=== PATIENT | male | born 1940 | race Caucasian/White ===

== ENCOUNTER 2023-05-19 09:00 | Outpatient (OUT) | payer MEDICARE, SELFPAY ==
--- NOTE | 2023-05-19 09:00 | CA_ITS ---
Patient: NADIR HEREDIA Exam Date: 05/19/2023 : 1940 Gender:M Ordering : DR CLARIBEL PUGA M.D. Admission #: [id number] Family : Order #: [id number] CLICK HERE TO VIEW EXAM ECHOCARDIOGRAM REPORT PROCEDURE: CA ECHO DOPPLER COMPLETE INDICATIONS: AOV STENOSIS, PERICARDIAL EFFUSION COMPARISON: None. DESCRIPTION: COMPLETE ECHOCARDIOGRAM Real-time transthoracic echocardiography with 2D, M-mode, spectral and color flow Doppler performed. QUALITY: Technical quality was limited. LEFT VENTRICLE: Normal chamber size. Proximal septal hypertrophy (sigmoid septum). LV EF: Global left ventricular systolic function is normal; visually estimated ejection fraction is 55 to 60%. No obvious wall motion abnormalities. DIASTOLIC: Not adequately assessed due to heart rhythm. ATRIAL SEPTUM: Inadequately seen. LEFT ATRIUM: Severe dilatation. RIGHT ATRIUM: Severe dilatation. RIGHT VENTRICLE: Moderate dilatation. Normal right ventricular systolic function. TRICUSPID VALVE: Normal mobility and thickness. Moderate regurgitation. Severe pulmonary hypertension. RVSP 74 mmHg MITRAL VALVE: Normal mobility and thickness. No evidence of mitral valve stenosis. Moderate mitral annular calcification. Mild mitral regurgitation. AORTIC VALVE: Doppler velocity suggests moderate aortic valve stenosis. The aortic valve is heavily calcified with reduced mobility. DVI 0.32. Mild aortic regurgitation. AORTIC ROOT: Aorta is normal in size for BSA PULMONIC VALVE: Normal thickness and mobility. No stenosis. Mild regurgitation. PERICARDIUM: A small to moderate circumferential pericardial effusion is seen. No chamber compression noted. IVC: IVC is dilated without collapse CONCLUSION: 1. Global left ventricular systolic function is normal; visually estimated ejection fraction is 55 to 60% 2. The right ventricle is moderately dilated. Normal right ventricular systolic function. 3. Severe biatrial enlargement. 4. Moderate tricuspid regurgitation. 5. Severely elevated right ventricular systolic pressure; RVSP 74 mmHg. 6. Mild mitral regurgitation. 7. Moderate aortic valve stenosis 8. A small to moderate circumferential pericardial effusion is seen; no echocardiographic evidence of chamber compression Adult Echocardiography Procedure Report Left Ventricle LVEDD (3.7 - 5.6 cm): 4.52 cm LVIVS thickness (0.6 - 1.2 cm): 1.15 cm LVOT Max Gradient: 4.24 mm[Hg], 4.20 mm[Hg] Peak Velocity (LVOT): 1.03 m/s, 1.03 m/s LVOT Diameter 1.91 cm Left Atrium Mitral Valve Mitral Valve E-Wave Peak Velocity: 1.26 m/s Right Ventricle RV Internal Diastolic Dimension: 4.79 cm Aorta Ascending Ao Diam: 3.48 cm Aortic Valve AoV Area (Peak Kyle): 0.91 cm2, 0.91 cm2, 0.91 cm2, 0.91 cm2, 0.91 cm2, 0.91 cm2, 0.91 cm2, 0.91 cm2 AoV Area (VTI): 1.02 cm2, 1.06 cm2 Peak Velocity(Antegrade Flow): 3.24 m/s, 2.92 m/s, 3.24 m/s Peak Gradient(Antegrade Flow): 41.87 mm[Hg], 34.03 mm[Hg], 41.87 mm[Hg] Mean Velocity(Antegrade Flow): 2.27 m/s, 2.03 m/s Mean Gradient(Antegrade Flow): 23.77 mm[Hg], 19.49 mm[Hg] Velocity Time Integral: 79.43 cm, 82.45 cm Tricuspid Valve Peak Velocity (Regurgitant Flow): 3.83 m/s, 3.61 m/s, 4.04 m/s Pulmonic Valve Peak Gradient: 4.08 mm[Hg] Right Atrium Dictated by: Rohini Traylor M.D. on 05/20/2023 at 18:05 Approved by: Rohini Traylor M.D. on 05/20/2023 at 18:19
== END 2023-05-19 14:31 | disposition home or self-care (01) ==
LOC: CARD 08-12 14:31
PROVIDERS: PCP Family Medicine; Visit Provider Internal Medicine Interventional Cardiology
DX: I35.0 Nonrheumatic aortic (valve) stenosis (principal); I31.39 Other pericardial effusion (noninflammatory)
CPT/HCPCS: 93306

== ENCOUNTER 2023-05-31 07:40 | Inpatient (IN) | payer MEDICARE, SELFPAY ==
[2023-05-31] VITALS (24 sets, daily range): BP systolic 125–183; BP diastolic 72–95; PULSE 72–135; RESP 14–24; TEMP 36.1–36.7; O2SAT 88–98; BMI 28.4; BMI 29.2
--- NOTE | 2023-05-31 08:24 | ECG_ITS ---
The [facility] Test Date: 2023-05-31 Pat Name: NADIR HEREDIA Department: Room: - Gender: Male Cushion Stuffer: : 1940 Requested By: VAN YOUSSEF Order Number: [id number] Reading MD: VAN YOUSSEF Measurements Intervals [place] Rate: 92 P: -02720 GA: -46044 QRS: 98 QRSD: 100 T: 28 QT: 364 QTc: 414 Interpretive Statements 1210 Atrial fibrillation 3333 Anterolateral myocardial infarction, probably old 9150 abnormal ECG No previous ECG available for comparison Electronically Signed On 06-02-2023 6:36:14 EDT by VAN YOUSSEF
[2023-05-31 08:34] LABS: Basophils Percent Auto 0.5 % (0.2-2.0); Eosinophils Absolute Auto 0.3 10^3/uL (0.0-0.7); Eosinophils Percent Auto 3.5 % (0.9-7.0); Hematocrit 41.6 % (42.0-54.0); Hemoglobin 13.9 g/dL (14.0-18.0); Immature Granulocytes Abs Auto 0.03 10^3/uL (0.00-0.03); Immature Granulocytes Pct Auto 0.4 % (0.0-0.5); Lymphocytes Absolute Auto 0.6 10^3/uL (1.2-3.8); Mean Corpuscular HGB Conc 33.4 g/dL (29.9-35.2); Mean Corpuscular Hemoglobin 33.5 pg (25.9-34.0); Mean Corpuscular Volume 100.2 fL (80.0-94.0); Mean Platelet Volume 11.5 fL (9.5-13.5); Monocytes Absolute Auto 0.8 10^3/uL (0.3-0.8); Monocytes Percent Auto 9.7 % (1.7-12.0); Neutrophils Absolute Auto 6.1 10^3/uL (1.4-6.5); Neutrophils Percent Auto 77.9 % (43.0-75.0); Platelet Count 171 10^3/uL (150-450); Red Blood Count 4.15 10^6/uL (4.70-6.10); Red Cell Distribution Width 15.9 % (11.0-15.0); White Blood Count 7.8 10^3/uL (4.0-11.0)
[2023-05-31] MEDS: METHYLPREDNISOLONE SOD SUCC PF 125 MG/2 ML VIAL IVP (08:35)
[2023-05-31] MEDS: IPRATROPIUM/ALBUTEROL SULFATE 3 ML AMPUL.NEB IH ×3 (08:40→22:16)
[2023-05-31 08:53] LABS: ABG PCO2 45.3 mmHg (35.0-45.0); Allen Test POSITIVE (POSITIVE); Base Excess ABG 4.5 mmol/L (-2.0-2.0); HCO3 ABG 29.1 mmol/L (22.0-26.0); Oxygen Saturation ABG 91.5 %; PO2 ABG 69.2 mmHg (80.0-100.0); pH ABG 7.415 (7.350-7.450)
[2023-05-31 08:54] LABS: Anion Gap 14.2; BUN Creatinine Ratio 17.3; Carbon Dioxide 27.2 mmol/L (21.0-32.0); Chloride 108 mmol/L (98-107); Estimated GFR (African America 54 (>=60); Estimated GFR (Non-African Ame 45 (>=60); Glucose 193 mg/dL (74-106); Potassium 4.4 mmol/L (3.5-5.1); Sodium 145 mmol/L (136-145); Troponin I High Sensitivity 12.6 pg/mL (4.0-76.1)
[2023-05-31 08:54] LABS: Liters per Minute 2; O2 Mode NASAL CANNULA; Puncture Site R. RADIAL
--- NOTE | 2023-05-31 09:00 | ED.SOB1 ---
HPI - SOB/Dyspnea General Chief Complaint: Shortness of Breath/Dyspnea Stated Complaint: SHORTNESS OF BREATH Time Seen by Provider: 05/31/23 07:53 Source: patient Source comment: patient Mode of arrival: Wheelchair Limitations: no limitations History of Present Illness HPI Narrative: Patient has been experiencing shortness of breath since last week. He saw Dr Sung in the office and was prescribed spironolactone over the weekend. He has been using his home inhalers without any improvement. He uses oxygen at 2LPM [place] at home. No improvement over the weekend and he felt worse shortness of breath this weekend. Never had chest pain, tightness or pressure. Minimal cough. No sore throat or nasal congestion. Related Data Allergies Allergy/AdvReac Type Severity Reaction Status Date / Time Iodinated Contrast Media Allergy Intermediate Verified 05/31/23 07:56 nitroglycerin Allergy Intermediate Verified 05/31/23 07:56 [facility] Social History Smoking status: Former smoker Exam Narrative Exam Narrative: Nurses notes and vital signs reviewed and patient is not hypoxic. afebrile General: Mildly tachypneic at rest but in no apparent distress. Skin: Warm, dry, no pallor noted. No rash. Head: Normocephalic, atraumatic. Neck: Supple, non-tender. Eye: Pupils are equal, round and EOMI. No scleral icterus. Ears, Nose, Mouth, and Throat: Oral mucosa is moist Cardiovascular: Regular Rate and Rhythm without murmur, gallop or rub. Respiratory: No accessory muscle use or respiratory distress. Lungs with bibasilar and central rales Chest Wall: no tenderness Musculoskeletal: normal ROM, no calf or popliteal tenderness. he wears compression stockings so no lower extremity edema/swelling was noted. GI: Abdomen is soft, non-distended. Normal bowel sounds. No tenderness to palpation. No rebound, guarding, or rigidity noted. Neurological: A&O x4. No cranial nerve dysfunction observed. No truncal ataxia. Moves all extremities. Sensation intact. Psychiatric: Cooperative and interactive. Normal mood and affect. Constitutional Vital Signs, click to edit/add: Last Vital Signs Temp 97.5 F L 05/31/23 07:50 Pulse 80 05/31/23 08:41 Resp 24 05/31/23 07:50 BP 142/80 H 05/31/23 07:50 Pulse Ox 92 L 05/31/23 08:41 O2 Del Method Nasal Cannula 05/31/23 08:41 O2 Flow Rate 2 05/31/23 08:41 Course Vital Signs Vital signs: Vital Signs Temperature 97.5 F L 05/31/23 07:50 Respiratory Rate 24 05/31/23 07:50 Blood Pressure 142/80 H 05/31/23 07:50 Pulse Oximetry 88 L 05/31/23 07:50 Oxygen Delivery Method Room Air 05/31/23 07:50 Oxygen Delivery Flow Rate 2 05/31/23 07:50 Temperature 97.5 F L 05/31/23 07:50 Pulse Rate 80 05/31/23 08:41 Respiratory Rate 24 05/31/23 07:50 Blood Pressure 142/80 H 05/31/23 07:50 Pulse Oximetry 92 L 05/31/23 08:41 Oxygen Delivery Method Nasal Cannula 05/31/23 08:41 Oxygen Delivery Flow Rate 2 05/31/23 08:41 MDM - SOB/Dyspnea MDM Narrative Medical decision making narrative: Patient was placed on phototypesetting equipment monitor and EKG obtained. Blood drawn and sent for evaluation. ABG obtained. CXR obtained. The patient received IV Solumedrol and Duoneb therapy. ABG revealed hypoxemia despite wearing 2LPM [place] oxygen. BNP elevated. Troponin normal. CBC unremarkable. BMP notable for elevated BUN & Cr @ 26, 1.5. Glucose elevated at 193. CXR reveals cephalization consistent with his clinical CHF picture including elevated BNP. He was diuresed with Lasix 40mg IVP in the ED. Case discussed with his PCP. Dr Sung agreed to admit the patient for further evaluation and treatment since he had already tried spironolactone as an out-patient without improvement. Lab Data Attestation: I reviewed the patient's lab results. Labs: Lab Results 05/31/23 05/31/23 Range/Units 08:09 08:43 WBC 7.8 (4.0-11.0) 10^3/uL RBC 4.15 L (4.70-6.10) 10^6/uL Hgb 13.9 L (14.0-18.0) g/dL Hct 41.6 L (42.0-54.0) % MCV 100.2 H (80.0-94.0) fL MCH 33.5 (25.9-34.0) pg MCHC 33.4 (29.9-35.2) g/dL RDW 15.9 H (11.0-15.0) % Plt Count 171 (150-450) 10^3/uL MPV 11.5 (9.5-13.5) fL Neut % (Auto) 77.9 H (43.0-75.0) % Lymph % (Auto) 8.0 L (20.5-60.0) % [place] % (Auto) 9.7 (1.7-12.0) % Eos % (Auto) 3.5 (0.9-7.0) % Baso % (Auto) 0.5 (0.2-2.0) % Neut # (Auto) 6.1 (1.4-6.5) 10^3/uL Lymph # (Auto) 0.6 L (1.2-3.8) 10^3/uL [place] # (Auto) 0.8 (0.3-0.8) 10^3/uL Eos # (Auto) 0.3 (0.0-0.7) 10^3/uL Baso # (Auto) 0.0 (0.0-0.1) 10^3/uL Abs Immat Gran (auto) 0.03 (0.00-0.03) 10^3/uL Imm/Tot Granulo (auto) 0.4 (0.0-0.5) % Puncture Site R. radial ABG pH 7.415 (7.350-7.450) ABG pCO2 45.3 H (35.0-45.0) mmHg ABG pO2 69.2 L (80.0-100.0) mmHg ABG HCO3 29.1 H (22.0-26.0) mmol/L ABG O2 Saturation 91.5 % ABG Base Excess 4.5 H (-2.0-2.0) mmol/L [place] Test Positive (POSITIVE) O2 Liters/Min 2 Sodium 145 (136-145) mmol/L Potassium 4.4 (3.5-5.1) mmol/L Chloride 108 H (98-107) mmol/L Carbon Dioxide 27.2 (21.0-32.0) mmol/L Anion Gap 14.2 BUN 26.0 H (7.0-18.0) mg/dL Creatinine 1.50 H (0.70-1.30) mg/dL Est GFR ( Amer) 54 L (>=60) Est GFR (Non-Af Amer) 45 L (>=60) BUN/Creatinine Ratio 17.3 Glucose 193 H (74-106) mg/dL Calcium 9.0 (8.5-10.1) mg/dL Troponin I High Sens 12.6 (4.0-76.1) pg/mL NT-Pro-B Natriuret Pep 3311.0 H* (<=1800.0) pg/mL ABG Data Attestation: I have reviewed the pertinent ABG results. Interpretation: Normal pH. pCO2 is slightly elevated. paO2 is low despite 2LPM NC. Imaging Data Chest x-ray: Radiologist's impression: Patient Name: NADIR HEREDIA MRN: [id number] date: 1940 Sex: M Assigned Patient Location: ER Current Patient Location: ER Accession/Order Number: [id number] Exam Date: 05/31/2023 09:00 Report Date: 05/31/2023 09:15 At the request of: KHLOE LEUNG Procedure: XR chest 1V EXAMINATION: XR chest 1V HISTORY: shortness of breath COMPARISON: 07/17/2022 TECHNIQUE: AP portable FINDINGS: LUNGS: Left basilar infiltrate partially obscuring the hemidiaphragm VASCULATURE: Moderately increased only vasculature PLEURA: No pneumothorax, effusion, or pleural thickening. CARDIAC: No cardiomegaly MEDIASTINUM: No visible mass or adenopathy. BONES: No fracture or visible bone lesion. OTHER: Negative. IMPRESSION: Pulmonary vascular congestion Mild left basilar infiltrate Electronically authenticated by: RAULITO CORBETT Date: 05/31/2023 09:15 ECG Data Attestation: ?I have reviewed the pertinent ECG results. Interpretation: EKG interpretation: Emergency Department physician interpretation. rate controlled atrial fibrillation at 92bpm. Normal axis, normal intervals and no ST segment elevation or depression. Discharge Plan Discharge Chief Complaint: Shortness of Breath/Dyspnea Clinical Impression: Congestive heart failure Patient Disposition: Admitted As Inpatient Time of Disposition Decision: 09:13 Additional Instructions: Dr Sung's service, med/surg with telemetry
--- NOTE | 2023-05-31 09:08 | XR_ITS ---
The [address] [address] Patient Name: NADIR HEREDIA MRN: [id number] date: 1940 Sex: M Assigned Patient Location: ER Current Patient Location: ER Accession/Order Number: [id number] Exam Date: 05/31/2023 09:00 Report Date: 05/31/2023 09:15 At the request of: KHLOE LUENG Procedure: XR chest 1V EXAMINATION: XR chest 1V HISTORY: shortness of breath COMPARISON: 07/17/2022 TECHNIQUE: AP portable FINDINGS: LUNGS: Left basilar infiltrate partially obscuring the hemidiaphragm VASCULATURE: Moderately increased only vasculature PLEURA: No pneumothorax, effusion, or pleural thickening. CARDIAC: No cardiomegaly MEDIASTINUM: No visible mass or adenopathy. BONES: No fracture or visible bone lesion. OTHER: Negative. XR/XR chest 1V IMPRESSION: Pulmonary vascular congestion Mild left basilar infiltrate Electronically authenticated by: RAULITO CORBETT Date: 05/31/2023 09:15
[2023-05-31] MEDS: FUROSEMIDE 40 MG/4 ML VIAL IVP (09:49)
[2023-05-31 10:48] LABS: SARS-CoV-2 Ag NEGATIVE (NEGATIVE)
[2023-05-31 14:14] LABS: Free T3 2.52 pg/mL (2.18-3.98); Magnesium 2.5 mg/dL (1.8-2.4); Thyroid Stimulating Hormone 0.898 uIU/mL (0.358-3.740)
[2023-05-31 14:15] LABS: Creatine Kinase 62 U/L (39-308); Creatine Kinase MB 1.38 ng/mL (<=3.60); Troponin I High Sensitivity 15.6 pg/mL (4.0-76.1)
--- NOTE | 2023-05-31 14:48 | SWNOTE1 ---
SW met with pt to discuss dc needs. Pt's in room as well. Pt lives at home with his . He is independent at home and does not wear home oxygen. Pt does not have any home health coming in. Pt and voiced they do not have any discharge concerns at this time. SW to follow as needed.
[2023-05-31] MEDS: BUMETANIDE 10 MG in 0.9 % SODIUM CHLORIDE 160 ML 20 MG IV (14:58)
[2023-05-31 16:04] LABS: Glucometer 226 mg/dL (74-106)
[2023-05-31] MEDS: METOCLOPRAMIDE HCL 10 MG TABLET 5 MG PO ×2 (17:56→21:13)
[2023-05-31] MEDS: TAMSULOSIN HCL 0.4 MG CAPSULE PO (17:57)
[2023-05-31] MEDS: PANTOPRAZOLE SODIUM 40 MG VIAL IV (17:57)
[2023-05-31] MEDS: APIXABAN 5 MG TABLET 2.5 MG PO (17:57)
[2023-05-31] MEDS: HYDRALAZINE HCL 50 MG TABLET 100 MG PO (20:08)
[2023-05-31] MEDS: MAGNESIUM OXIDE 400 MG TABLET 800 MG PO (20:08)
[2023-05-31] MEDS: GABAPENTIN 300 MG CAPSULE 1200 MG PO (20:09)
[2023-05-31] MEDS: POTASSIUM CHLORIDE 10 MEQ ER TABLET 20 MEQ PO (20:09)
[2023-05-31] MEDS: FERROUS SULFATE 325 MG TABLET PO (20:11)
[2023-05-31] MEDS: CLONIDINE HCL 0.1 MG TABLET PO (20:13)
[2023-05-31] MEDS: PRIMIDONE 50 MG TABLET PO (20:18)
[2023-05-31 20:36] LABS: Glucometer 404 mg/dL (74-106)
[2023-05-31] MEDS: INSULIN ASPART 300 UNIT/3 ML PEN SUBQ (21:13)
[2023-05-31] MEDS: ACYCLOVIR 200 MG CAPSULE 400 MG PO (21:13)
[2023-05-31 23:11] LABS: Bilirubin Urine NEGATIVE (NEGATIVE); Blood Urine NEGATIVE (NEGATIVE); Clarity Urine CLEAR (CLEAR); Color Urine LT. YELLOW (YELLOW); Glucose Urine UA >=1000 mg/dL (NEGATIVE); Ketones Urine NEGATIVE (NEGATIVE); Leukocyte Esterase Urine NEGATIVE (NEGATIVE); Nitrite Urine NEGATIVE (NEGATIVE); Protein Urine NEGATIVE (NEG/TRACE); Urobilinogen Urine 0.2 EU/dL (0.2-1.0); pH Urine 6.5 (5.0-9.0)
[2023-05-31 23:14] LABS: Urine Microscopic Indicated NO
[2023-06-01] VITALS (18 sets, daily range): BP systolic 81–169; BP diastolic 47–95; PULSE 77–138; RESP 16–18; TEMP 36.4–36.7; O2SAT 83–100; BMI 29.2
[2023-06-01] MEDS: METOPROLOL TARTRATE 5 MG/5 ML VIAL IVP (01:06)
[2023-06-01] MEDS: DEXTROSE 50 %-WATER 25 GM/50 ML SYRINGE IV (01:28)
[2023-06-01 01:31] LABS: Glucometer 48 mg/dL (74-106)
[2023-06-01 01:33] LABS: Glucometer 156 mg/dL (74-106)
[2023-06-01 05:07] LABS: Glucometer 208 mg/dL (74-106)
[2023-06-01] MEDS: IPRATROPIUM/ALBUTEROL SULFATE 3 ML AMPUL.NEB IH ×2 (05:11→11:35)
[2023-06-01 05:19] LABS: Basophils Percent Auto 0.2 % (0.2-2.0); Eosinophils Percent Auto 0.1 % (0.9-7.0); Hematocrit 48.7 % (42.0-54.0); Hemoglobin 15.6 g/dL (14.0-18.0); Immature Granulocytes Abs Auto 0.06 10^3/uL (0.00-0.03); Immature Granulocytes Pct Auto 0.4 % (0.0-0.5); Lymphocytes Absolute Auto 0.8 10^3/uL (1.2-3.8); Lymphocytes Percent Auto 5.3 % (20.5-60.0); Mean Corpuscular Hemoglobin 32.8 pg (25.9-34.0); Mean Corpuscular Volume 102.3 fL (80.0-94.0); Mean Platelet Volume 11.2 fL (9.5-13.5); Monocytes Absolute Auto 1.7 10^3/uL (0.3-0.8); Monocytes Percent Auto 11.3 % (1.7-12.0); Neutrophils Absolute Auto 12.1 10^3/uL (1.4-6.5); Neutrophils Percent Auto 82.7 % (43.0-75.0); Platelet Count 187 10^3/uL (150-450); Red Blood Count 4.76 10^6/uL (4.70-6.10); Red Cell Distribution Width 15.9 % (11.0-15.0); White Blood Count 14.6 10^3/uL (4.0-11.0)
[2023-06-01 05:42] LABS: Alanine Aminotransferase 22 U/L (16-63); Albumin Globulin Ratio 1.2; Alkaline Phosphatase 86 U/L (46-116); Anion Gap 15.5; Aspartate Amino Transferase 16 U/L (15-37); Bilirubin Total 0.9 mg/dL (0.2-1.0); Calcium 9.4 mg/dL (8.5-10.1); Carbon Dioxide 27.6 mmol/L (21.0-32.0); Chloride 105 mmol/L (98-107); Estimated GFR (African America 41 (>=60); Estimated GFR (Non-African Ame 34 (>=60); Globulin 3.4 g/dL; Glucose 185 mg/dL (74-106); Magnesium 2.5 mg/dL (1.8-2.4); Potassium 4.1 mmol/L (3.5-5.1); Sodium 144 mmol/L (136-145); Total Protein 7.4 g/dL (6.4-8.2); Troponin I High Sensitivity 22.6 pg/mL (4.0-76.1)
[2023-06-01 08:13] LABS: Glucometer 168 mg/dL (74-106)
--- NOTE | 2023-06-01 08:20 | PM.HP ---
H&P: HPI History of Present Illness Chief complaint: SHORTNESS OF BREATH Narrative: Patient was seen and evaluated in the office 2 days prior to admission. Diuretics were adjusted for acute combined congestive heart failure as an outpatient. Patient had increasing shortness of breath and presented to the emergency room. Found to have progression of his acute combined congestive heart failure. Elevated BNP and hypoxia. Patient will be admitted for work-up and treatment of same. Failed outpatient treatment Review of Systems ROS Status of ROS 10 or more systems reviewed and unremarkable except as noted in history and below PFSH PFSH Social History Smoking status: Former smoker Meds Home Medications and Allergies Home Medications Medication Instructions Recorded Confirmed Type ACETAMINOPHEN PM 1 tab PO BEDTIME 05/31/23 05/31/23 History Vitamin B-Complex 1 tab PO .NOON 05/31/23 05/31/23 History acyclovir 400 mg tablet 400 mg PO Q12H 05/31/23 05/31/23 History alogliptin 25 mg tablet 25 mg PO DAILY 05/31/23 05/31/23 History apixaban 2.5 mg tablet 2.5 mg PO BID 05/31/23 05/31/23 History aspirin 81 mg tablet,delayed 81 mg PO DAILY 05/31/23 05/31/23 History release (Adult Low Dose Aspirin) cholecalciferol (vitamin D3) 50 2,000 unit PO DAILY 05/31/23 05/31/23 History mcg (2,000 unit) tablet (Thera-D) clonidine HCl 0.1 mg tablet 0.1 mg PO Q12H 05/31/23 05/31/23 History dicyclomine 10 mg capsule 10 mg PO DAILY 05/31/23 05/31/23 History dulaglutide 0.75 mg/0.5 mL 0.75 mg subcut .weekly 05/31/23 05/31/23 History subcutaneous pen injector (Trulicity) empagliflozin 25 mg tablet 25 mg PO DAILY 05/31/23 05/31/23 History (Jardiance) ergocalciferol (vitamin D2) 1,250 50,000 unit PO .weekly 05/31/23 05/31/23 History mcg (50,000 unit) capsule ezetimibe 10 mg tablet 10 mg PO DAILY 05/31/23 05/31/23 History ferrous sulfate 325 mg (65 mg 325 mg PO BID 05/31/23 05/31/23 History iron) tablet furosemide 20 mg tablet 20 mg PO BID 05/31/23 05/31/23 History furosemide 40 mg tablet 40 mg PO Q12H 05/31/23 05/31/23 History gabapentin 600 mg PO .1 QAM AND 2 QPM 05/31/23 05/31/23 History glimepiride 4 mg tablet 8 mg PO DAILY 05/31/23 05/31/23 History hydralazine 100 mg tablet 100 mg PO Q12H 05/31/23 05/31/23 History hydrocortisone-pramoxine 2.5 %-1 % 1 applic topical TID 05/31/23 05/31/23 History rectal cream labetalol 300 mg tablet 300 mg PO DAILY 05/31/23 05/31/23 History magnesium See Rx Instructions PO BID 05/31/23 05/31/23 History metoclopramide HCl 5 mg tablet 5 mg PO Q6H 05/31/23 05/31/23 History omeprazole 20 mg capsule,delayed 20 mg PO BID 05/31/23 05/31/23 History release pioglitazone 45 mg tablet 45 mg PO DAILY 05/31/23 05/31/23 History primidone 50 mg tablet 50 mg PO Q12H 05/31/23 05/31/23 History spironolactone 50 mg tablet 50 mg PO .QD 05/31/23 05/31/23 History tamsulosin 0.4 mg capsule 0.4 mg PO Q24H 05/31/23 05/31/23 History Allergies Allergy/AdvReac Type Severity Reaction Status Date / Time Iodinated Contrast Media Allergy Intermediate Verified 05/31/23 07:56 nitroglycerin Allergy Intermediate Verified 05/31/23 07:56 Exam Constitutional Vital Signs, click to edit/add: Last Vital Signs Temp 97.6 F 06/01/23 05:37 Pulse 109 H 06/01/23 07:47 Resp 18 06/01/23 05:37 BP 130/90 H 06/01/23 05:37 Pulse Ox 96 06/01/23 05:37 O2 Del Method Nasal Cannula 06/01/23 05:37 O2 Flow Rate 2 06/01/23 05:37 Documenting provider has reviewed patient's vital signs: yes Common normals: no apparent distress Other: Some confusion overnight. This is likely related to sundowning. He did have a fall but did not have any head injury. Respiratory Common normals: normal respiratory effort, no retractions and clear to auscultation bilaterally Cardio Common normals: no murmurs Rate: regular rate Rhythm: abnormal rhythm Neuro Common normals: oriented x3 and CN's II-XII intact bilaterally Results Labs Labs: Short CBC 05/31/23 06/01/23 Range/Units 08:09 05:12 WBC 7.8 14.6 H (4.0-11.0) 10^3/uL Hgb 13.9 L 15.6 (14.0-18.0) g/dL Hct 41.6 L 48.7 (42.0-54.0) % Plt Count 171 187 (150-450) 10^3/uL BMP 05/31/23 06/01/23 08:09 05:12 Sodium 145 144 Potassium 4.4 4.1 Chloride 108 H 105 Carbon Dioxide 27.2 27.6 BUN 26.0 H 38.0 H Creatinine 1.50 H 1.90 H Glucose 193 H 185 H Calcium 9.0 9.4 Cardiac Enzymes 05/31/23 Range/Units 13:17 Total Creatine Kinase 62 (39-308) U/L CK-MB (CK-2) 1.38 (<=3.60) ng/mL Liver Function 06/01/23 Range/Units 05:12 Total Bilirubin 0.9 (0.2-1.0) mg/dL AST 16 (15-37) U/L ALT 22 (16-63) U/L Alkaline Phosphatase 86 (46-116) U/L Albumin 4.0 (3.4-5.0) g/dL Urine 05/31/23 Range/Units 22:50 Urine Color Lt. yellow (YELLOW) Urine Clarity Clear (CLEAR) Urine pH 6.5 (5.0-9.0) Ur Specific [place] 1.010 (1.005-1.025) Urine Protein Negative (NEG/TRACE) mg/dL Urine Glucose (UA) >=1000 A (NEGATIVE) mg/dL ABG ABG results: 05/31/23 08:43 ABG pH 7.415 ABG pCO2 45.3 H ABG pO2 69.2 L ABG HCO3 29.1 H ABG O2 Saturation 91.5 ABG Base Excess 4.5 H Assessment and Plan Assessment and Plan (1) Congestive heart failure: Plan Acute hypoxia, tachycardia, acute combined congestive heart failure-elevated BNP on admission, elevated more today. But he did have 6 L of diuresis. This is likely just a lag in change of the BNP as well as his increased BUN and creatinine resulting in elevated BNP. He overall feels much improved. Plan will be to try to wean him off of supplemental oxygen. He had a recent echocardiogram that was showed a good ejection fraction. Consultation to cardiology if here today. If ambulating well later today and no further work-up from cardiology and no need for supplemental oxygenation he can be discharged home in improving condition. Medications see list. Follow-up with me in the office either later this week or next
[2023-06-01] MEDS: HYDRALAZINE HCL 50 MG TABLET 100 MG PO (08:42)
[2023-06-01] MEDS: EZETIMIBE 10 MG TABLET PO (08:43)
[2023-06-01] MEDS: GABAPENTIN 300 MG CAPSULE 600 MG PO (08:43)
[2023-06-01] MEDS: SPIRONOLACTONE 25 MG TABLET 50 MG PO (08:44)
[2023-06-01] MEDS: GLIMEPIRIDE 2 MG TABLET 8 MG PO (08:45)
[2023-06-01] MEDS: MAGNESIUM OXIDE 400 MG TABLET 800 MG PO (08:45)
[2023-06-01] MEDS: CANAGLIFLOZIN 100 MG TABLET 300 MG PO (08:46)
[2023-06-01] MEDS: ASPIRIN 81 MG TABLET.DR PO (08:46)
[2023-06-01] MEDS: FERROUS SULFATE 325 MG TABLET PO (08:47)
[2023-06-01] MEDS: LABETALOL HCL 100 MG TABLET 300 MG PO (08:47)
[2023-06-01] MEDS: POTASSIUM CHLORIDE 10 MEQ ER TABLET 20 MEQ PO (08:47)
[2023-06-01] MEDS: APIXABAN 5 MG TABLET 2.5 MG PO (08:47)
[2023-06-01] MEDS: DICYCLOMINE HCL 10 MG CAPSULE PO (08:47)
[2023-06-01] MEDS: METOCLOPRAMIDE HCL 10 MG TABLET 5 MG PO ×2 (08:47→11:31)
[2023-06-01] MEDS: ACYCLOVIR 200 MG CAPSULE 400 MG PO (08:57)
[2023-06-01] MEDS: CLONIDINE HCL 0.1 MG TABLET PO (09:03)
[2023-06-01] MEDS: PRIMIDONE 50 MG TABLET PO (09:03)
[2023-06-01] MEDS: FUROSEMIDE 40 MG TABLET PO (09:04)
[2023-06-01 11:17] LABS: Glucometer 209 mg/dL (74-106)
[2023-06-01] MEDS: CHOLECALCIFEROL (VITAMIN D3) 25 MCG/1,000 UNITS TABLET 50 MCG PO (11:28)
--- NOTE | 2023-06-01 11:39 | RESP.RT ---
Room air trial
--- NOTE | 2023-06-01 14:52 | ECG_ITS ---
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
--- NOTE | 2023-06-01 14:53 | CM.NOTE ---
Important Message From Medicare discussed with pt, pt verbalizes understanding and signs paper. Original given to pt and copy placed on pt's chart.
[2023-06-01 15:49] LABS: SARS-CoV-2 NAA NOT DETECTED (NOT DETECTE)
--- NOTE | 2023-06-02 14:57 | CM.DCFOLLOWU ---
Person spoke with: Shanna Spain () How are you feeling? Much better How is your pain? none Did you understand your discharge instructions? yes Do you have any questions about your discharge instructions? no Were you given any prescriptions at discharge? no Were you able to get your prescriptions filled? no scipts written Do you understand how to take your medications as ordered? yes Do you have any questions about your follow up appointment and do you plan to keep your follow up appointment? Changed appt it is now the same day as his cardiology appt Is there anything else that you would like to discuss? no Questions/Comments/Concerns/Other:
== END 2023-06-01 15:31 | disposition home or self-care (01) | DRG 293 ==
LOC: ER 09:37 → MS 10:40
PROVIDERS: Admitting Provider Family Medicine; Emergency Provider Emergency Medicine; PCP Family Medicine; Visit Provider Family Medicine
DX: I50.41 Acute combined systolic (congestive) and diastolic (congestive) heart failure (principal); Z99.81 Dependence on supplemental oxygen; Z87.891 Personal history of nicotine dependence; Z79.82 Long term (current) use of aspirin; Z79.01 Long term (current) use of anticoagulants; Z79.899 Other long term (current) drug therapy; Z79.85 Long-term (current) use of injectable non-insulin antidiabetic drugs; Z79.84 Long term (current) use of oral hypoglycemic drugs; Z88.8 Allergy status to other drugs, medicaments and biological substances; Z91.041 Radiographic dye allergy status
CPT/HCPCS: 36415; 36600; 71045; 80048; 80053; 81001; 81003; 82550; 82553; 82805; 82948; 83735; 83880; 84436; 84443; 84481; 84484; 85025; 87086; 87150; 87186; 87635; 87811; 93005; 94640; 94667; 94668; 94761; 96365; 96366; 96375; 99285; J2930

== ENCOUNTER 2023-06-14 16:16 | Outpatient (OUT) | payer MEDICARE, SELFPAY ==
[2023-06-14 16:35] LABS: Basophils Absolute Auto 0.1 10^3/uL (0.0-0.1); Basophils Percent Auto 0.6 % (0.2-2.0); Eosinophils Absolute Auto 0.2 10^3/uL (0.0-0.7); Hematocrit 41.5 % (42.0-54.0); Hemoglobin 13.6 g/dL (14.0-18.0); Immature Granulocytes Abs Auto 0.04 10^3/uL (0.00-0.03); Immature Granulocytes Pct Auto 0.5 % (0.0-0.5); Lymphocytes Absolute Auto 0.8 10^3/uL (1.2-3.8); Lymphocytes Percent Auto 10.2 % (20.5-60.0); Mean Corpuscular HGB Conc 32.8 g/dL (29.9-35.2); Mean Corpuscular Hemoglobin 33.2 pg (25.9-34.0); Mean Corpuscular Volume 101.2 fL (80.0-94.0); Mean Platelet Volume 11.1 fL (9.5-13.5); Monocytes Absolute Auto 0.9 10^3/uL (0.3-0.8); Monocytes Percent Auto 11.2 % (1.7-12.0); Neutrophils Absolute Auto 5.8 10^3/uL (1.4-6.5); Neutrophils Percent Auto 74.5 % (43.0-75.0); Platelet Count 194 10^3/uL (150-450); Red Cell Distribution Width 15.4 % (11.0-15.0); White Blood Count 7.8 10^3/uL (4.0-11.0)
[2023-06-14 16:50] LABS: Anion Gap 10.9; BUN Creatinine Ratio 15.4; Calcium 8.8 mg/dL (8.5-10.1); Carbon Dioxide 28.2 mmol/L (21.0-32.0); Chloride 105 mmol/L (98-107); Estimated GFR (African America 39 (>=60); Estimated GFR (Non-African Ame 32 (>=60); Glucose 179 mg/dL (74-106); Potassium 4.1 mmol/L (3.5-5.1); Sodium 140 mmol/L (136-145)
== END 2023-06-14 16:17 | disposition home or self-care (01) ==
LOC: LAB 16:18
PROVIDERS: PCP Family Medicine; Visit Provider Nurse Practitioner
DX: I25.10 Atherosclerotic heart disease of native coronary artery without angina pectoris (principal)
CPT/HCPCS: 36415; 80048; 85025

== ENCOUNTER 2023-07-21 14:28 | Outpatient (OUT) | payer MEDICARE, SELFPAY ==
[2023-07-21 15:14] LABS: Basophils Percent Auto 0.5 % (0.2-2.0); Eosinophils Absolute Auto 0.3 10^3/uL (0.0-0.7); Eosinophils Percent Auto 3.9 % (0.9-7.0); Hematocrit 45.5 % (42.0-54.0); Hemoglobin 14.5 g/dL (14.0-18.0); Immature Granulocytes Abs Auto 0.02 10^3/uL (0.00-0.03); Immature Granulocytes Pct Auto 0.2 % (0.0-0.5); Lymphocytes Absolute Auto 0.8 10^3/uL (1.2-3.8); Lymphocytes Percent Auto 10.1 % (20.5-60.0); Mean Corpuscular HGB Conc 31.9 g/dL (29.9-35.2); Mean Corpuscular Hemoglobin 32.7 pg (25.9-34.0); Mean Corpuscular Volume 102.7 fL (80.0-94.0); Mean Platelet Volume 11.5 fL (9.5-13.5); Monocytes Absolute Auto 0.8 10^3/uL (0.3-0.8); Monocytes Percent Auto 9.8 % (1.7-12.0); Neutrophils Absolute Auto 6.1 10^3/uL (1.4-6.5); Neutrophils Percent Auto 75.5 % (43.0-75.0); Platelet Count 192 10^3/uL (150-450); Red Blood Count 4.43 10^6/uL (4.70-6.10); Red Cell Distribution Width 15.5 % (11.0-15.0)
[2023-07-21 15:58] LABS: BUN Creatinine Ratio 14.5; Calcium 9.1 mg/dL (8.5-10.1); Carbon Dioxide 28.6 mmol/L (21.0-32.0); Chloride 106 mmol/L (98-107); Estimated GFR (African America 44 (>=60); Estimated GFR (Non-African Ame 36 (>=60); Glucose 157 mg/dL (74-106); Potassium 4.6 mmol/L (3.5-5.1); Sodium 142 mmol/L (136-145)
== END 2023-07-21 14:29 | disposition home or self-care (01) ==
LOC: LAB 14:30
PROVIDERS: PCP Family Medicine; Visit Provider Internal Medicine Interventional Cardiology
DX: I35.0 Nonrheumatic aortic (valve) stenosis (principal)
CPT/HCPCS: 36415; 80048; 85025

== ENCOUNTER 2023-07-23 10:48 | Outpatient (OUT) | payer MEDICARE, SELFPAY ==
--- NOTE | 2023-07-23 11:05 | XR_ITS ---
The [address] [address] Patient Name: NADIR HEREDIA MRN: [id number] date: 1940 Sex: M Assigned Patient Location: [facility] Current Patient Location: [facility] Accession/Order Number: [id number] Exam Date: 07/23/2023 10:57 Report Date: 07/23/2023 11:25 At the request of: VAN YOUSSEF Procedure: XR chest 2V EXAM: XR chest 2V HISTORY: Left lower lobe pneumonia J18.9 COMPARISON: None. TECHNIQUE: PA and lateral views of the chest. FINDINGS: The cardiomediastinal silhouette is normal. Left lower lobe airspace disease. There is no pneumothorax. No pleural effusion is noted. The osseous structures are intact. XR/XR chest 2V IMPRESSION: Left lower lobe airspace disease. Electronically authenticated by: BARRIE MORE Date: 07/23/2023 11:25
== END 2023-07-23 10:49 | disposition home or self-care (01) ==
LOC: RAD 10:48
PROVIDERS: PCP Family Medicine; Visit Provider Family Medicine
DX: J18.9 Pneumonia, unspecified organism (principal)
CPT/HCPCS: 71046

== ENCOUNTER 2023-07-24 10:51 | Outpatient (REF) | payer MEDICARE, SELFPAY | END 2023-07-24 10:52 | disposition home or self-care (01) | LOC: LAB 10:51 | PROVIDERS: PCP Family Medicine; Visit Provider Family Medicine | DX: J18.9 Pneumonia, unspecified organism (principal) | CPT/HCPCS: 87070; 87106 ==

== ENCOUNTER 2023-08-20 10:02 | Outpatient (OUT) | payer MEDICARE, SELFPAY ==
[2023-08-20 10:22] LABS: Hemoglobin 14.6 g/dL (14.0-18.0)
[2023-08-20 10:45] LABS: Protein Creatinine Ratio Urine 0.31; Total Protein Urine Random <6.0 mg/dL (<=11.9)
[2023-08-20 10:53] LABS: Albumin Level 3.7 g/dL (3.4-5.0); Anion Gap 13.4; Calcium 9.2 mg/dL (8.5-10.1); Carbon Dioxide 30.5 mmol/L (21.0-32.0); Chloride 102 mmol/L (98-107); Estimated GFR (African America 48 (>=60); Estimated GFR (Non-African Ame 39 (>=60); Glucose 143 mg/dL (74-106); Magnesium 2.1 mg/dL (1.8-2.4); Phosphorus 3.9 mg/dL (2.6-4.7); Potassium 3.9 mmol/L (3.5-5.1); Sodium 142 mmol/L (136-145)
== END 2023-08-20 10:03 | disposition home or self-care (01) ==
LOC: LAB 10:02
PROVIDERS: PCP Family Medicine; Visit Provider Internal Medicine Nephrology
DX: N18.32 Chronic kidney disease, stage 3b (principal)
CPT/HCPCS: 36415; 80048; 82042; 82570; 83735; 84100; 84156; 85018

== ENCOUNTER 2023-08-30 09:54 | Outpatient (OUT) | payer MEDICARE, SELFPAY ==
--- NOTE | 2023-08-30 10:13 | XR_ITS ---
The [address] [address] Patient Name: NADIR HREEDIA MRN: [id number] date: 1940 Sex: M Assigned Patient Location: LAB Current Patient Location: LAB Accession/Order Number: [id number] Exam Date: 08/30/2023 10:15 Report Date: 08/30/2023 11:06 At the request of: VAN YOUSSEF Procedure: XR chest 2V EXAM: XR chest 2V HISTORY: Atrial Fibrillation I48.91 COMPARISON: None. TECHNIQUE: PA and lateral views of the chest. FINDINGS: The cardiomediastinal silhouette is normal. Lingula atelectasis. There is no pneumothorax. No pleural effusion is noted. The osseous structures are intact. XR/XR chest 2V IMPRESSION: Lingula atelectasis. Electronically authenticated by: BARRIE MORE Date: 08/30/2023 11:06
[2023-08-30 10:28] LABS: Basophils Percent Auto 0.4 % (0.2-2.0); Eosinophils Absolute Auto 0.3 10^3/uL (0.0-0.7); Hematocrit 44.8 % (42.0-54.0); Hemoglobin 14.7 g/dL (14.0-18.0); Immature Granulocytes Abs Auto 0.03 10^3/uL (0.00-0.03); Immature Granulocytes Pct Auto 0.3 % (0.0-0.5); Lymphocytes Absolute Auto 0.7 10^3/uL (1.2-3.8); Lymphocytes Percent Auto 7.5 % (20.5-60.0); Mean Corpuscular HGB Conc 32.8 g/dL (29.9-35.2); Mean Corpuscular Hemoglobin 33.4 pg (25.9-34.0); Mean Corpuscular Volume 101.8 fL (80.0-94.0); Mean Platelet Volume 11.5 fL (9.5-13.5); Monocytes Absolute Auto 0.6 10^3/uL (0.3-0.8); Monocytes Percent Auto 7.1 % (1.7-12.0); Neutrophils Absolute Auto 7.4 10^3/uL (1.4-6.5); Neutrophils Percent Auto 81.7 % (43.0-75.0); Platelet Count 193 10^3/uL (150-450); Red Cell Distribution Width 14.6 % (11.0-15.0); White Blood Count 9.1 10^3/uL (4.0-11.0)
[2023-08-30 10:41] LABS: Influenza Virus A Antigen Negative; Influenza Virus B Antigen Negative; Internal Control Within Normal Limits; SARS-CoV-2 Ag NEGATIVE (NEGATIVE)
[2023-08-30 10:56] LABS: Anion Gap 16.6; BUN Creatinine Ratio 14.8; Calcium 8.9 mg/dL (8.5-10.1); Carbon Dioxide 24.7 mmol/L (21.0-32.0); Chloride 105 mmol/L (98-107); Estimated GFR (African America 49 (>=60); Estimated GFR (Non-African Ame 41 (>=60); Glucose 167 mg/dL (74-106); Potassium 4.3 mmol/L (3.5-5.1); Sodium 142 mmol/L (136-145)
[2023-09-04 15:40] LABS: SARS-CoV-2 NAA NOT DETECTED (NOT DETECTE)
== END 2023-08-30 09:55 | disposition home or self-care (01) ==
LOC: LAB 09:55
PROVIDERS: PCP Family Medicine; Visit Provider Family Medicine
DX: I48.91 Unspecified atrial fibrillation (principal); J98.11 Atelectasis
CPT/HCPCS: 36415; 71046; 80048; 85025; 87635; 87804; 87811

== ENCOUNTER 2023-09-09 14:02 | Outpatient (OUT) | payer MEDICARE, SELFPAY ==
[2023-09-09 14:17] LABS: Adenovirus NOT DETECTED (NOT DETECTE); Bordetella parapertussis NOT DETECTED (NOT DETECTE); Coronavirus 229E NOT DETECTED (NOT DETECTE); Coronavirus HKU1 NOT DETECTED (NOT DETECTE); Coronavirus NL63 NOT DETECTED (NOT DETECTE); Coronavirus OC43 NOT DETECTED (NOT DETECTE); Human Metapneumovirus NOT DETECTED (NOT DETECTE); Human Rhinovirus/Enterovirus NOT DETECTED (NOT DETECTE); Influenza A NOT DETECTED (NOT DETECTE); Influenza B NOT DETECTED (NOT DETECTE); Mycoplasma pneumoniae NOT DETECTED (NOT DETECTE); Parainfluenza Virus 1 NOT DETECTED (NOT DETECTE); Parainfluenza Virus 2 NOT DETECTED (NOT DETECTE); Parainfluenza Virus 3 NOT DETECTED (NOT DETECTE); Parainfluenza Virus 4 NOT DETECTED (NOT DETECTE); Respiratory Syncytial Virus NOT DETECTED (NOT DETECTE); SARS-CoV-2 NOT DETECTED (NOT DETECTE)
--- NOTE | 2023-09-09 14:19 | XR_ITS ---
The [address] [address] Patient Name: NADIR HEREDIA MRN: [id number] date: 1940 Sex: M Assigned Patient Location: LAB Current Patient Location: Accession/Order Number: [id number] Exam Date: 09/09/2023 14:22 Report Date: 09/10/2023 09:12 At the request of: VAN YOUSSEF Procedure: XR chest 2V EXAM: XR chest 2V HISTORY: Atrial Fibrillation I48.91 COMPARISON: 08/30/2023 TECHNIQUE: PA and lateral views of the chest. FINDINGS: The cardiomediastinal silhouette is normal. Lingular atelectasis. There is no pneumothorax. No pleural effusion is noted. The osseous structures are intact. XR/XR chest 2V IMPRESSION: No significant change from prior exam. Electronically authenticated by: BARRIE MORE Date: 09/10/2023 09:12
[2023-09-09 14:33] LABS: Basophils Percent Auto 0.4 % (0.2-2.0); Eosinophils Absolute Auto 0.2 10^3/uL (0.0-0.7); Eosinophils Percent Auto 2.8 % (0.9-7.0); Hematocrit 44.2 % (42.0-54.0); Hemoglobin 14.5 g/dL (14.0-18.0); Immature Granulocytes Abs Auto 0.02 10^3/uL (0.00-0.03); Immature Granulocytes Pct Auto 0.3 % (0.0-0.5); Lymphocytes Absolute Auto 0.8 10^3/uL (1.2-3.8); Lymphocytes Percent Auto 10.7 % (20.5-60.0); Mean Corpuscular HGB Conc 32.8 g/dL (29.9-35.2); Mean Corpuscular Hemoglobin 33.6 pg (25.9-34.0); Mean Corpuscular Volume 102.3 fL (80.0-94.0); Mean Platelet Volume 11.2 fL (9.5-13.5); Monocytes Absolute Auto 0.7 10^3/uL (0.3-0.8); Monocytes Percent Auto 8.9 % (1.7-12.0); Neutrophils Absolute Auto 5.7 10^3/uL (1.4-6.5); Neutrophils Percent Auto 76.9 % (43.0-75.0); Platelet Count 203 10^3/uL (150-450); Red Blood Count 4.32 10^6/uL (4.70-6.10); Red Cell Distribution Width 14.9 % (11.0-15.0); White Blood Count 7.4 10^3/uL (4.0-11.0)
[2023-09-09 15:08] LABS: Alanine Aminotransferase 21 U/L (16-63); Albumin Globulin Ratio 1.1; Albumin Level 3.5 g/dL (3.4-5.0); Alkaline Phosphatase 75 U/L (46-116); Anion Gap 12.5; Aspartate Amino Transferase 14 U/L (15-37); BUN Creatinine Ratio 13.6; Bilirubin Total 0.5 mg/dL (0.2-1.0); Calcium 8.9 mg/dL (8.5-10.1); Carbon Dioxide 27.7 mmol/L (21.0-32.0); Chloride 105 mmol/L (98-107); Estimated GFR (African America 52 (>=60); Estimated GFR (Non-African Ame 43 (>=60); Globulin 3.1 g/dL; Glucose 136 mg/dL (74-106); Potassium 4.2 mmol/L (3.5-5.1); Sodium 141 mmol/L (136-145); Total Protein 6.6 g/dL (6.4-8.2)
== END 2023-09-09 14:03 | disposition home or self-care (01) ==
LOC: LAB 14:04
PROVIDERS: PCP Family Medicine; Visit Provider Family Medicine
DX: I48.91 Unspecified atrial fibrillation (principal); I11.0 Hypertensive heart disease with heart failure; I50.30 Unspecified diastolic (congestive) heart failure; Z20.822 Contact with and (suspected) exposure to COVID-19
CPT/HCPCS: 0202U; 36415; 71046; 80053; 83880; 85025

== ENCOUNTER 2023-10-10 06:31 | Emergency (ER) | payer MEDICARE, SELFPAY ==
[2023-10-10] VITALS (21 sets, daily range): BP systolic 163–202; BP diastolic 82–118; PULSE 76–111; RESP 13–27; TEMP 36.5; O2SAT 93–99
--- NOTE | 2023-10-10 06:44 | XR_ITS ---
The [address] [address] Patient Name: NADIR HEREDIA MRN: [id number] date: 1940 Sex: M Assigned Patient Location: ER Current Patient Location: ER Accession/Order Number: [id number] Exam Date: 10/10/2023 07:05 Report Date: 10/10/2023 08:00 At the request of: KHLOE LEUNG Procedure: XR chest 1V EXAMINATION: XR chest 1V REASON FOR EXAM: shortness of breath COMPARISON: 05/31/2023. FINDINGS: There is cardiomegaly, pulmonary venous congestion and small effusions. No pneumothorax. Minor atelectasis at lung bases. XR/XR chest 1V IMPRESSION: Findings suggestive of congestive heart failure with pulmonary venous congestion, probable interstitial edema and small effusions. Similar findings seen on 05/31/2023. Electronically authenticated by: NATASHA MCCABE Date: 10/10/2023 08:00
--- NOTE | 2023-10-10 06:44 | ECG_ITS ---
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
--- NOTE | 2023-10-10 06:52 | ED_ITS ---
HPI - General Adult General Chief complaint: Shortness of Breath/Dyspnea Stated complaint: shortness of breath Time Seen by Provider: 10/10/23 06:32 Source: patient Mode of arrival: ambulance Limitations: no limitations History of Present Illness HPI narrative: Patient brought in by ambulance for evaluation after experiencing 2-3 days of shortness of breath. The patient told me that he had a mild cough with some yellowish sputum production. He denied any chest pain, pressure or tightness. No fever or chills. No vomiting or diarrhea. No urinary symptoms. He denied any increased leg swelling. Related Data Home Medications Medication Instructions Recorded Confirmed ACETAMINOPHEN PM 1 tab PO BEDTIME 05/31/23 05/31/23 Vitamin B-Complex 1 tab PO .NOON 05/31/23 05/31/23 acyclovir 400 mg tablet 400 mg PO Q12H 05/31/23 05/31/23 alogliptin 25 mg tablet 25 mg PO DAILY 05/31/23 05/31/23 apixaban 2.5 mg tablet 2.5 mg PO BID 05/31/23 05/31/23 aspirin 81 mg tablet,delayed 81 mg PO DAILY 05/31/23 05/31/23 release (Adult Low Dose Aspirin) cholecalciferol (vitamin D3) 50 2,000 unit PO DAILY 05/31/23 05/31/23 mcg (2,000 unit) tablet (Thera-D) clonidine HCl 0.1 mg tablet 0.1 mg PO Q12H 05/31/23 05/31/23 dicyclomine 10 mg capsule 10 mg PO DAILY 05/31/23 05/31/23 dulaglutide 0.75 mg/0.5 mL 0.75 mg subcut .weekly 05/31/23 05/31/23 subcutaneous pen injector (Trulicity) empagliflozin 25 mg tablet 25 mg PO DAILY 05/31/23 05/31/23 (Jardiance) ergocalciferol (vitamin D2) 1,250 50,000 unit PO .weekly 05/31/23 05/31/23 mcg (50,000 unit) capsule ezetimibe 10 mg tablet 10 mg PO DAILY 05/31/23 05/31/23 ferrous sulfate 325 mg (65 mg 325 mg PO BID 05/31/23 05/31/23 iron) tablet furosemide 20 mg tablet 20 mg PO BID 05/31/23 05/31/23 furosemide 40 mg tablet 40 mg PO Q12H 05/31/23 05/31/23 gabapentin 600 mg PO .1 QAM AND 2 QPM 05/31/23 05/31/23 glimepiride 4 mg tablet 8 mg PO DAILY 05/31/23 05/31/23 hydralazine 100 mg tablet 100 mg PO Q12H 05/31/23 05/31/23 hydrocortisone-pramoxine 2.5 %-1 % 1 applic topical TID 05/31/23 05/31/23 rectal cream labetalol 300 mg tablet 300 mg PO DAILY 05/31/23 05/31/23 magnesium See Rx Instructions PO BID 05/31/23 05/31/23 metoclopramide HCl 5 mg tablet 5 mg PO Q6H 05/31/23 05/31/23 omeprazole 20 mg capsule,delayed 20 mg PO BID 05/31/23 05/31/23 release pioglitazone 45 mg tablet 45 mg PO DAILY 05/31/23 05/31/23 primidone 50 mg tablet 50 mg PO Q12H 05/31/23 05/31/23 spironolactone 50 mg tablet 50 mg PO .QD 05/31/23 05/31/23 tamsulosin 0.4 mg capsule 0.4 mg PO Q24H 05/31/23 05/31/23 Allergies Allergy/AdvReac Type Severity Reaction Status Date / Time Iodinated Contrast Media Allergy Intermediate Verified 10/10/23 06:39 nitroglycerin Allergy Intermediate Verified 10/10/23 06:39 PFS PFSH Social History Smoking status: Never smoker Exam Narrative Exam Narrative: Nurses notes and vital signs reviewed and patient is not hypoxic. afebrile General: Well-appearing and in no apparent distress. Skin: Warm, dry, no pallor noted. Head: Normocephalic, atraumatic. Neck: Supple, non-tender. Eye: Pupils are equal, round and EOMI. No scleral icterus. Cardiovascular: Regular Rate and irregular rhythm. No murmur, gallop or rub. Respiratory: No accessory muscle use or respiratory distress. Lungs are clear to auscultation, no wheezing, rales or rhonchi Chest Wall: no tenderness, crepitus or subcutaneous emphysema Back: No CVA tenderness Musculoskeletal: normal ROM, no calf or popliteal tenderness, trace lower extremity edema/swelling GI: Abdomen is soft, non-distended. Normal bowel sounds. No tenderness to palpation. No rebound, guarding, or rigidity noted. Neurological: A&O x4. No cranial nerve dysfunction observed. No truncal ataxia. Moves all extremities. Sensation intact. Psychiatric: Cooperative and interactive. Normal mood and affect. Constitutional Vital Signs, click to edit/add: Last Vital Signs Temp 97.7 F 10/10/23 06:36 Pulse 94 H 10/10/23 06:36 Resp 20 10/10/23 06:36 BP 202/114 H 10/10/23 06:36 Pulse Ox 99 10/10/23 06:36 O2 Del Method Nasal Cannula 10/10/23 06:36 O2 Flow Rate 4 10/10/23 06:36 Course Vital Signs Vital signs: Vital Signs Temperature 97.7 F 10/10/23 06:36 Pulse Rate 94 H 10/10/23 06:36 Respiratory Rate 20 10/10/23 06:36 Blood Pressure 202/114 H 10/10/23 06:36 Pulse Oximetry 99 10/10/23 06:36 Oxygen Delivery Method Nasal Cannula 10/10/23 06:36 Oxygen Delivery Flow Rate 4 10/10/23 06:36 Temperature 97.7 F 10/10/23 06:36 Pulse Rate 94 H 10/10/23 06:36 Respiratory Rate 20 10/10/23 06:36 Blood Pressure 202/114 H 10/10/23 06:36 Pulse Oximetry 99 10/10/23 06:36 Oxygen Delivery Method Nasal Cannula 10/10/23 06:36 Oxygen Delivery Flow Rate 4 10/10/23 06:36 Medical Decision Making [facility] Narrative Medical decision making narrative: 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 Blood drawn and sent for evaluation, including blood cultures. CXR ordered to be obtained. Patient had HTN - he was given IV Vasotec. he was also ordered to receive a duoneb treatment. Patient signed out to the day shift physician, Dr Garcia, with all of the blood testing and CXR pending. Lab Data Lab results reviewed: Yes I reviewed the patient's lab results ECG Data Attestation: I personally reviewed and interpreted this ECG as follows: Interpretation: EKG interpretation: Emergency Department physician interpretation. Rate controlled atrial fibrillation rhythm at 85bpm. Normal axis, normal intervals and non-specific T wave changes. No ST segment elevation or depression. Discharge Plan Discharge Chief Complaint: Shortness of Breath/Dyspnea Patient Disposition: Still a Patient Time of Disposition Decision: 06:58 Prescriptions / Home Meds: No Action acyclovir 400 mg tablet 400 mg PO Q12H clonidine HCl 0.1 mg tablet 0.1 mg PO Q12H dicyclomine 10 mg capsule 10 mg PO DAILY Hold Instructions: DC Trulicity 0.75 mg/0.5 mL pen injector 0.75 mg subcut .weekly ergocalciferol (vitamin D2) 1,250 mcg (50,000 unit) capsule 50,000 unit PO .weekly ezetimibe 10 mg tablet 10 mg PO DAILY ferrous sulfate 325 mg (65 mg iron) tablet 325 mg PO BID furosemide 40 mg tablet 40 mg PO Q12H glimepiride 4 mg tablet 8 mg PO DAILY Rx Instructions: AT NOON hydralazine 100 mg tablet 100 mg PO Q12H hydrocortisone-pramoxine 2.5-1 % cream 1 applic topical TID labetalol 300 mg tablet 300 mg PO DAILY metoclopramide HCl 5 mg tablet 5 mg PO Q6H omeprazole 20 mg capsule,delayed release(DR/EC) 20 mg PO BID pioglitazone 45 mg tablet 45 mg PO DAILY primidone 50 mg tablet 50 mg PO Q12H tamsulosin 0.4 mg capsule 0.4 mg PO Q24H spironolactone 50 mg tablet 50 mg PO .QD Rx Instructions: FOR 4 DAYS gabapentin 600 mg 600 mg PO .1 QAM AND 2 QPM magnesium 500 mg See Rx Instructions PO BID Rx Instructions: 2 TABLETS orally twice a day; Jardiance 25 mg tablet 25 mg PO DAILY Vitamin B-Complex tablet 1 tab PO .NOON cholecalciferol (vitamin D3) [Thera-D] 50 mcg (2,000 unit) tablet 2,000 unit PO DAILY ACETAMINOPHEN PM tablet 1 tab PO BEDTIME aspirin [Adult Low Dose Aspirin] 81 mg tablet,delayed release (DR/EC) 81 mg PO DAILY furosemide 20 mg tablet 20 mg PO BID apixaban 2.5 mg tablet 2.5 mg PO BID alogliptin 25 mg tablet 25 mg PO DAILY Stand Alone Forms: Portal Instructions Referrals: Pj Sung MD [Primary Care Provider] - 1 week
[2023-10-10] MEDS: ENALAPRILAT DIHYDRATE 1.25 MG/ML VIAL IV (07:08)
[2023-10-10] MEDS: METHYLPREDNISOLONE SOD SUCC PF 125 MG/2 ML VIAL IVP (07:08)
[2023-10-10 07:13] LABS: Basophils Percent Auto 0.5 % (0.2-2.0); Eosinophils Absolute Auto 0.2 10^3/uL (0.0-0.7); Hematocrit 46.5 % (42.0-54.0); Hemoglobin 14.8 g/dL (14.0-18.0); Immature Granulocytes Abs Auto 0.03 10^3/uL (0.00-0.03); Immature Granulocytes Pct Auto 0.4 % (0.0-0.5); Lymphocytes Absolute Auto 0.7 10^3/uL (1.2-3.8); Lymphocytes Percent Auto 9.8 % (20.5-60.0); Mean Corpuscular HGB Conc 31.8 g/dL (29.9-35.2); Mean Corpuscular Hemoglobin 34.5 pg (25.9-34.0); Mean Platelet Volume 11.5 fL (9.5-13.5); Monocytes Absolute Auto 0.7 10^3/uL (0.3-0.8); Monocytes Percent Auto 9.8 % (1.7-12.0); Neutrophils Absolute Auto 5.9 10^3/uL (1.4-6.5); Neutrophils Percent Auto 77.5 % (43.0-75.0); Platelet Count 173 10^3/uL (150-450); Red Blood Count 4.29 10^6/uL (4.70-6.10); Red Cell Distribution Width 15.6 % (11.0-15.0); White Blood Count 7.6 10^3/uL (4.0-11.0)
[2023-10-10] MEDS: IPRATROPIUM/ALBUTEROL SULFATE 3 ML AMPUL.NEB IH (07:17)
[2023-10-10 07:32] LABS: Mean Corpuscular Volume 108.4 fL (80.0-94.0)
[2023-10-10 07:34] LABS: SARS-CoV-2 Ag NEGATIVE (NEGATIVE)
[2023-10-10 07:35] LABS: Alanine Aminotransferase 22 U/L (16-63); Albumin Globulin Ratio 1.1; Albumin Level 3.5 g/dL (3.4-5.0); Alkaline Phosphatase 70 U/L (46-116); Anion Gap 14.9; Aspartate Amino Transferase 17 U/L (15-37); BUN Creatinine Ratio 15.6; Bilirubin Total 0.7 mg/dL (0.2-1.0); Calcium 9.1 mg/dL (8.5-10.1); Carbon Dioxide 25.2 mmol/L (21.0-32.0); Chloride 106 mmol/L (98-107); Estimated GFR (African America 58 (>=60); Estimated GFR (Non-African Ame 48 (>=60); Globulin 3.1 g/dL; Glucose 163 mg/dL (74-106); Potassium 4.1 mmol/L (3.5-5.1); Sodium 142 mmol/L (136-145); Total Protein 6.6 g/dL (6.4-8.2); Troponin I High Sensitivity 18.8 pg/mL (4.0-76.1)
[2023-10-10 07:38] LABS: D Dimer 0.89 mg/L FEU (<=0.59)
[2023-10-10] MEDS: HYDRALAZINE HCL 20 MG/ML VIAL 10 MG IVP (08:03)
[2023-10-10] MEDS: FUROSEMIDE 40 MG/4 ML VIAL IVP (08:03)
[2023-10-10 08:33] LABS: Troponin I High Sensitivity 19.8 pg/mL (4.0-76.1)
[2023-10-11 16:01] LABS: SARS-CoV-2 NAA NOT DETECTED (NOT DETECTE)
== END 2023-10-10 09:47 | disposition home or self-care (01) ==
PROVIDERS: Emergency Medicine; Emergency Provider Emergency Medicine; PCP Family Medicine
DX: R06.02 Shortness of breath (principal); J81.1 Chronic pulmonary edema; Z79.899 Other long term (current) drug therapy; Z79.82 Long term (current) use of aspirin; Z20.822 Contact with and (suspected) exposure to COVID-19
CPT/HCPCS: 36415; 71045; 80053; 83880; 84484; 85025; 85378; 87635; 87811; 93005; 94640; 96374; 96375; 99285; J2930

== ENCOUNTER 2023-10-29 14:54 | Outpatient (OUT) | payer MEDICARE, SELFPAY ==
[2023-10-29 15:09] LABS: Hemoglobin 15.8 g/dL (14.0-18.0)
[2023-10-29 15:44] LABS: Creatinine Urine Random 31.43 mg/dL (20.00-300.00); Protein Creatinine Ratio Urine 0.19; Total Protein Urine Random <6.0 mg/dL (<=11.9)
[2023-10-29 15:48] LABS: Albumin Level 3.9 g/dL (3.4-5.0); Anion Gap 12.8; Calcium 9.3 mg/dL (8.5-10.1); Carbon Dioxide 28.2 mmol/L (21.0-32.0); Chloride 100 mmol/L (98-107); Estimated GFR (African America 50 (>=60); Estimated GFR (Non-African Ame 41 (>=60); Glucose 190 mg/dL (74-106); Phosphorus 3.8 mg/dL (2.6-4.7); Sodium 137 mmol/L (136-145)
== END 2023-10-29 14:55 | disposition home or self-care (01) ==
LOC: LAB 14:54
PROVIDERS: PCP Family Medicine; Visit Provider Internal Medicine Nephrology
DX: E55.9 Vitamin D deficiency, unspecified (principal); N18.32 Chronic kidney disease, stage 3b; E87.8 Other disorders of electrolyte and fluid balance, not elsewhere classified
CPT/HCPCS: 36415; 80048; 82042; 82306; 82570; 84100; 84156; 85018

== ENCOUNTER 2024-02-17 07:51 | Outpatient (OUT) | payer MEDICARE, SELFPAY ==
--- OUTSIDE RECORDS SUMMARY | 2024-02-17 07:56 | XMS_ITS | CCD ---
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 Name Role Phone PHYSICIAN, DEFAULT Admitting Unavailable PHYSICIAN, DEFAULT Attending Unavailable VAN SUNG Primary Care Unavailable Van Sung Primary Care Physician [phone] JANETY ., DR ARAUJO Primary Care Unavailable HOY ., DR ARAUJO Consulting Unavailable HOY ., DR ARAUJO Attending Unavailable HOY ., DR ARAUJO Admitting Unavailable ZIEBER, DR CLOVER Zimmer Consulting Unavailable KOYUK, DR CRAMER Consulting Unavailable HOY ., DR ARAUJO Primary Care Unavailable KOYUK, DR CRAMER Attending Unavailable KOYUK, DR CRAMER Admitting Unavailable KOYUK, DR CRAMER Consulting Unavailable HOY ., DR ARAUJO Primary Care Unavailable KOYUK, DR CRAMER Attending Unavailable KOYUK, DR CRAMER Admitting Unavailable HOY ., DR ARAUJO Consulting Unavailable HOY ., DR ARAUJO Primary Care Unavailable HOY ., DR ARAUJO Attending Unavailable HOY ., DR ARAUJO Admitting Unavailable KOYUK, DR CRAMER Consulting Unavailable HOY ., DR ARAUJO Primary Care Unavailable KOYUK, DR CRAMER Attending Unavailable KOYUK, DR CRAMER Admitting Unavailable HOY ., DR ARAUJO Consulting Unavailable HOY ., DR ARAUJO Primary Care Unavailable HOY ., DR ARAUJO Attending Unavailable HOY ., DR ARAUJO Admitting Unavailable ALI, ALSTON Consulting Unavailable HOY ., DR ARAUJO Primary Care Unavailable ALI, ALSTON Attending Unavailable ALI, ALSTON Admitting Unavailable HOY ., DR ARAUJO Consulting Unavailable HOY ., DR ARAUJO Primary Care Unavailable HOY ., DR ARAUJO Attending Unavailable HOY ., DR ARAUJO Admitting Unavailable MOUKARBEL, DR SANFORD Consulting Unavailable HOY ., DR ARAUJO Primary Care Unavailable MOUKARBEL, DR SANFORD Attending Unavailable MOUKARBEL, DR SANFORD Admitting Unavailable HOY ., DR ARAUJO Consulting Unavailable HOY ., DR ARAUJO Primary Care Unavailable HOY ., DR ARAUJO Attending Unavailable HOY ., DR ARAUJO Admitting Unavailable HOBebeto ., DR ARAUJO Consulting Unavailable HOY ., DR ARAUJO Attending Unavailable HOY ., DR ARAUJO Admitting Unavailable HOBebeto ., DR ARAUJO Primary Care Unavailable SHERICE FONSECA Consulting Unavailable MYNOR SOUZA Consulting Unavailable Yefri Dwyer Consulting Unavailable FRANCISCO ZELAYA Consulting Unavailable LI ROBERTS Consulting Unavailable DANA APARICIO Attending Unavailable KOYUK, RUTHIE Attending Unavailable MOUKARBEL, CLARIBEL Attending Unavailable MOUKARBEL, CLARIBEL Attending Unavailable SCHUYLER, RYDER Attending Unavailable MOUKARBEL, CLARIBEL Attending Unavailable KOYUK, RUTHIE Attending Unavailable MOUKARBEL, CLARIBEL Referring Unavailable Patricia, Nereyda A Admitting Unavailable Patricia, Nereyda A Attending Unavailable Patricia, Nereyda A Attending Unavailable Patricia, Nereyda A Attending Unavailable Patricia, Nereyad A Attending Unavailable Patricia, Nereyda A Attending Unavailable Patricia, Nereyda A Attending Unavailable Patricia, Nereyda A Attending Unavailable Patricia, Nereyda A Attending Unavailable NILFrancisco Hamilton Attending Unavailable Van Sung Referring Unavailable Patricia, Nereyda A Admitting Unavailable Patricia, Nereyda A Attending Unavailable Van Sung Consulting Unavailable MD Van Sung Consulting Unavailable Patricia, Nereyda A Admitting Unavailable Patricia, Nereyda A Attending Unavailable ROBINSON CHICAS Attending Unavailable BARRIE BRASWELL Attending Unavailable ROBINSON CHICAS Attending Unavailable Allergies Allergy Classification Reported Allergen(s) Allergy Type Date of Onset Reaction(s) Facility (14 sources) Aminolevulinic Acid; 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: [aminolevulinic acid] Drug Allergy 11-04-20 13 Unknown [facility] Repository (1 source) NITRO PATCH; 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: [NITRO PATCH] Propensity to adverse reactions (disorder) 03-18-20 12 [facility] Repository (12 sources) Contrast media; 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: [Contrast Dye] Drug allergy Unknown (qualifier value) [facility] (12 sources) Hmg-Coa Reductase Inhibitors (Statins); 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: [statins] Allergy to substance Unknown [facility] (20 sources) Nitroglycerin; 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: [nitroglycerin] Drug Allergy 02-23-20 Unknown (qualifier value) [facility] (2 sources) black walnut pollen extract; 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: [ZZUQJEC-ACL-TWE REDUCTASE INHIBITORS] Drug Allergy 04-21-20 17 [facility] Repository (1 source) Iodine (And Iodine Containting Drugs) Drug allergy (disorder) 05-28-20 16 [facility] Repository (1 source) IODINATED CONTRAST MEDIA; 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: [IODINATED CONTRAST MEDIA] Propensity to adverse reactions to drug (disorder) 07-17-20 [facility] Repository (1 source) Aminolevulinic Acid; 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: [aminolevulinic acid] Drug Allergy 11-04-20 13 [facility] Repository (1 source) Nitroglycerin; 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: [Nitroglycerin Patch] Drug Allergy [facility] Repository Medications Current Medications Medication Drug Class(es) Dates Sig (Normalized) Sig (Original) acyclovir 400 mg oral tablet (11 sources) Herpesvirus Nucleoside Analog DNA Polymerase Inhibitor, Herpes Simplex Virus Nucleoside Analog DNA Polymerase Inhibitor, Herpes Zoster Virus Nucleoside Analog DNA Polymerase Inhibitor Start: 01-09-2019 take 400 mg by mouth twice daily acyclovir 400 mg, Oral, BID, Refills(s) 0, Infection or prophylaxis for antibiotics Start Date: 01/09/19 Status: Ordered apixaban 2.5 mg oral tablet (11 sources) Factor Xa Inhibitor Start: 01-09-2019 take 2.5 mg by mouth twice daily Eliquis 2.5 mg, Oral, BID, Refills(s) 0, Blood Thinner Start Date: 01/09/19 Status: Ordered Start: 01-09-2019 take 5 mg by mouth twice daily Eliquis 5 mg, Oral, BID, Refills(s) 0, Blood Thinner Start Date: 01/09/19 Status: Ordered aspirin 81 mg oral tablet (11 sources) Platelet Aggregation Inhibitor, Nonsteroidal Anti-inflammatory Drug Start: 01-09-2019 take 81 mg by mouth once daily aspirin 81 mg, Oral, Daily, Refills(s) 0, Prophylaxis Start Date: 01/09/19 Status: Ordered bifidobacterium infantis 4 mg oral capsule (7 sources) Start: 06-10-2023 End: 09-08-2023 take 1 capsule by mouth once daily Align 4 mg oral capsule 4 mg = 1 cap(s), Oral, Daily, Take after completing the Antibiotics course, X 90 day(s), # 90 cap(s), Refills(s) 0, [id number] 185, cm, 06/10/23 10:45:00 EDT, Height/Length Dosing, 97, kg, 06/10/23 10:45:00 EDT, Weight Dosing Start Date: 06/10/23 Stop Date: 09/08/23 Status: Ordered Start: 08-28-2020 take 1 capsule by mo uth once daily Align 4 mg oral capsule 4 mg = 1 cap(s), Oral, Daily, Take after completing the Antibiotics course, # 28 cap(s), Refills(s) 0, [id number], 185, cm, 08/28/20 12:05:00 EDT, Height/Length Dosing, 103.7, kg, 08/28/20 12:05:00 EDT, Weight Dosing Start Date: 08/28/20 Status: Ordered Symbicort (11 sources) Corticosteroid, beta2-Adrenergic Agonist Start: 01-09-2019 Symbicort 80-4.5 mcg/actuation, Inhalation, BID, Refill(s) 0, COPD Start Date: 01/09/19 Status: Ordered cloNIDine hydrochloride 0.1 mg oral tablet (11 sources) Central alpha-2 Adrenergic Agonist Start: 01-09-2019 take 0.1 mg by mouth twice daily clonidine 0.1 mg, Oral, BID, Refills(s) 0, High blood pressure Start Date: 01/09/19 Status: Ordered dicyclomine hydrochloride 10 mg oral tablet (11 sources) Anticholinergic Start: 01-09-2019 take 10 mg by mouth twice daily dicyclomine 10 mg, Oral, BID, Refills(s) 0, Spasm Start Date: 01/09/19 Status: Ordered empagliflozin 10 mg oral tablet (11 sources) Sodium-Glucose Cotransporter 2 Inhibitor Start: 03-31-2022 take 1 tablet by mouth once daily in the morning Jardiance 10 mg oral tablet 10 mg = 1 tab(s), Oral, qAM, Refills(s) 0, Blood glucose Start Date: 03/31/22 Status: Ordered ezetimibe 10 mg oral tablet (11 sources) Dietary Cholesterol Absorption Inhibitor Start: 01-09-2019 take 10 mg by mouth once daily Zetia 10 mg, Oral, Daily, Refills(s) 0, High cholesterol Start Date: 01/09/19 Status: Ordered ferrous sulfate (11 sources) Start: 01-09-2019 ferrous sulfate 325 mg, BID, Refills(s) 0, Prophylaxis Start Date: 01/09/19 Status: Ordered furosemide 20 mg oral tablet (11 sources) Loop Diuretic Start: 01-09-2019 take 20 mg by mouth once daily Lasix 20 mg, Oral, Daily, Refills(s) 0, diuretic/water pill Start Date: 01/09/19 Status: Ordered gabapentin 600 mg oral tablet (11 sources) Anti-epileptic Agent Start: 01-09-2019 gabapentin 600 mg, Oral, qNOON, Refills(s) 0, Neuropathy Start Date: 01/09/19 Status: Ordered glimepiride 2 mg oral tablet (11 sources) Sulfonylurea Start: 01-09-2019 take 2 mg by mouth once daily glimepiride 2 mg, Oral, Daily, Refills(s) 0, High blood sugar Start Date: 01/09/19 Status: Ordered hydrALAZINE hydrochloride 100 mg oral tablet (11 sources) Arteriolar Vasodilator Start: 01-09-2019 take 100 mg by mouth twice daily hydrALAZINE 100 mg, Oral, BID, Refills(s) 0, High blood pressure Start Date: 01/09/19 Status: Ordered Labetalol (11 sources) beta-Adrenergic Ora Start: 01-09-2019 take 150 mg by mouth once daily labetalol 150 mg, Oral, Daily, Refills(s) 0, High blood pressure Start Date: 01/09/19 Status: Ordered Start: 01-09-2019 take 300 mg by mouth once umang y labetalol 300 mg, Oral, Daily, Refills(s) 0, High blood pressure Start Date: 01/09/19 Status: Ordered magnesium oxide 500 mg oral tablet (11 sources) Start: 08-28-2020 take 500 mg by mouth once daily magnesium oxide 500 mg, Oral, Daily, Refills(s) 0, Prophylaxis Start Date: 08/28/20 Status: Ordered Start: 08-28-2020 magnesium oxid e Oral, Refills(s) 0 Start Date: 08/28/20 Status: Ordered metFORMIN hydrochloride 500 mg oral tablet (1 source) Biguanide Start: 08-28-2020 take 1 mg by mouth once daily metformin 500 mg ER Tab mg tab(s), Oral, Daily, Refills(s) 0 Start Date: 08/28/20 Status: Ordered metoclopramide 5 mg oral tablet (11 sources) Dopamine-2 Receptor Antagonist Start: 01-09-2019 take 5 mg by mouth twice daily metoclopramide 5 mg, Oral, BID, Refills(s) 0, Control of stomach acid Start Date: 01/09/19 Status: Ordered 24 hr NIFEdipine 90 mg extended release oral tablet (11 sources) Dihydropyridine Calcium Channel Ora Start: 01-09-2019 take 90 mg by mouth twice daily NIFEdipine 90 mg, Oral, BID, Refills(s) 0, High blood pressure Start Date: 01/09/19 Status: Ordered Start: 01-09-2019 take 90 mg by mouth once daily NIFEdipine 90 mg, Oral, Daily, Refills(s) 0, High blood pressure Start Date: 01/09/19 Status: Ordered NuLYTELY Lemus oral powder for reconstitution (1 source) Start: 03-31-2022 take 1 dose by mouth once daily NuLYTELY Lemus oral powder for reconstitution See Instructions, 1 EA, Refill(s) 0, 240 mL Oral Daily Prior to colonoscopy Per physician's instructions, [facility]acy #[id number], 185, cm, 03/31/22 9:58:00 EDT, Height/Length Dosing, 101, kg, 03/31/22 9:58:00 EDT, Weight Dosing Start Date: 03/31/22 Status: Ordered omeprazole 20 mg oral tablet (11 sources) Proton Pump Inhibitor Start: 01-09-2019 take 20 mg by mouth twice daily omeprazole 20 mg, Oral, BID, Refills(s) 0, Control of stomach acid Start Date: 01/09/19 Status: Ordered pioglitazone 30 mg oral tablet (11 sources) Peroxisome Proliferator Receptor alpha Agonist, Peroxisome Proliferator Receptor gamma Agonist, Thiazolidinedione Start: 08-28-2020 take 1 tablet by mouth once daily pioglitazone 30 mg Tab 30 mg = 1 tab(s), Oral, Daily, Refills(s) 0, Blood glucose Start Date: 08/28/20 Status: Ordered Klor-Con (11 sources) Start: 01-09-2019 Klor-Con 20 mEq, Oral, Daily, Refills(s) 0, Prophylaxis Start Date: 01/09/19 Status: Ordered Pred Mild (11 sources) Corticosteroid Start: 01-09-2019 take 1 drop(s) into the eye(s) three times daily Pred Mild 1 drop(s), Eye-Both, TID, Refill(s) 0, Inflammation Start Date: 01/09/19 Status: Ordered Start: 01-09-2019 take 1 drop(s) into the eye(s) twice daily Pred Mild 1 drop(s), Eye-Both, BID, Refill(s) 0, Inflammation Start Date: 01/09/19 Status: Ordered primidone 50 mg oral tablet (11 sources) Anti-epileptic Agent Start: 01-09-2019 take 1 tablet by mouth once daily at bedtime primidone 50 mg Tab 50 mg = 1 tab(s), Oral, Once a day (at bedtime), # 30 tab(s), Refills(s) 0, Seizure Start Date: 01/09/19 Status: Ordered SITagliptin 100 mg oral tablet (11 sources) Dipeptidyl Peptidase 4 Inhibitor Start: 01-09-2019 take 100 mg by mouth once daily Januvia 100 mg, Oral, Daily, Refill(s) 0, High blood sugar Start Date: 01/09/19 Status: Ordered Spiriva Respimat 1.25 mcg/inh inhalation aerosol (1 source) Start: 01-09-2019 Spiriva Respimat 1.25 mcg/inh inhalation aerosol 2 puff(s), Inhalation, Daily, Refill(s) 0, COPD Start Date: 01/09/19 Status: Ordered tamsulosin hydrochloride 0.4 mg oral capsule (11 sources) alpha-Adrenergic Ora Start: 01-09-2019 take 0.4 mg by mouth once daily Flomax 0.4 mg, Oral, Daily, Refills(s) 0, Urinary discomfort Start Date: 01/09/19 Status: Ordered 60 actuat tiotropium 0.65289 mg/actuat inhalation spray (10 sources) Anticholinergic Start: 01-09-2019 Spiriva Respimat 1.25 mcg/inh inhalation aerosol 2 puff(s), Inhalation, Daily, Refill(s) 0, COPD Start Date: 01/09/19 Status: Ordered Completed/Discontinued Medications Medication Drug Class(es) Dates Sig (Normalized) Sig (Original) psyllium 525 mg oral capsule (11 sources) Start: 08-28-2020 take 8 capsules by mouth once daily Metamucil 525 mg oral capsule 1,050 mg = 2 cap(s), Oral, Daily, Take 2 hour apart from the other medications with at least 8 ounces of water, # 160 cap(s), Refills(s) 1, Pharmacy: [facility]/pharmacy #[id number], 185, cm, 08/28/20 12:05:00 EDT, Height/Length Dosing, 103.7, kg, 08/28/20 12:05:00 EDT, Weight Dosing Start Date: 08/28/20 Status: Ordered Problems Active Problems Problem Classification Problem Date Documented Da te Episodic/Chronic Abdominal pain (1 source) Abdominal pain; 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: [Unspecified abdominal pain] Onset: 10-01-2023 Episodic Asthma (11 sources) Asthma 08-28-2020 Chronic Cardiac dysrhythmias (1 source) Unspecified atrial fibrillation; 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: [UNSPECIFIED ATRIAL FIBRILLATION] Onset: 03-08-2023 Chronic Chronic kidney disease (8 sources) Chronic kidney disease; 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: [CHRONIC KIDNEY DISEASE STAGE 3B] Onset: 11-19-2022 Congestive heart failure; nonhypertensive (4 sources) Chronic diastolic (congestive) heart failure; 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: [Acute on chronic diastolic (congestive) heart failure] Onset: 06-14-2023 Chronic Coronary atherosclerosis and other heart disease (2 sources) Atherosclerotic heart disease of [place] coronary artery without angina pectoris; 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: [Atherosclerotic heart disease of [place] coronary artery without angina pectoris] Onset: 07-17-2022 Chronic Deficiency and other anemia (1 source) Anemia, unspecified; 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: [ANEMIA UNSPECIFIED] Onset: 03-04-2023 Episodic Diabetes mellitus with complications (4 sources) Type 2 diabetes mellitus with hyperglycemia; 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: [Type 2 diabetes mellitus with diabetic chronic kidney disease] Onset: 08-27-2022 Chronic Diabetes mellitus without complication (12 sources) Diabetes mellitus; 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: [Type 2 diabetes mellitus without complications] Onset: 04-30-2022 08-28-2020 Chronic Disorders of lipid metabolism (4 sources) Hyperlipidemia, unspecified; 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: [HYPERLIPIDEMIA UNSPECIFIED] Onset: 04-28-2022 Chronic Diverticulosis and diverticulitis (10 sources) Diverticula of intestine; 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: [Diverticulosis of intestine, part unspecified, without perforation or abscess without bleeding] Onset: 06-09-2022 Chronic Essential hypertension (3 sources) Essential (primary) hypertension; 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: [ESSENTIAL PRIMARY HYPERTENSION] Onset: 04-30-2022 Chronic Fluid and electrolyte disorders (5 sources) Hypo-osmolality and hyponatremia; 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: [Hyperkalemia] Onset: 08-27-2022 Episodic Heart valve disorders (7 sources) Nonrheumatic aortic (valve) stenosis; 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: [Rheumatic tricuspid insufficiency] Onset: 07-01-2022 Chronic Hemorrhoids (10 sources) Hemorrhoids; 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: [Unspecified hemorrhoids] Onset: 06-09-2022 Episodic Hypertension with complications and secondary hypertension (1 source) Hypertensive chronic kidney disease with stage 1 through stage 4 chronic kidney disease, or unspecified chronic kidney disease; 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: [HTN CKD W/STAGE 1-4 CKD/UNS CKD] Onset: 08-27-2022 Chronic Nausea and vomiting (4 sources) Nausea; 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: [Nausea] Onset: 10-01-2023 Episodic Nutritional deficiencies (2 sources) Vitamin D deficiency, unspecified; 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: [Vitamin D deficiency, unspecified] Onset: 11-17-2023 Chronic Other and unspecified benign neoplasm (16 sources) History of polyp of colon; 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: [Personal history of colonic polyps] Onset: 03-31-2022 Episodic Other and unspecified benign neoplasm (12 sources) Polyp of colon; 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: [Polyp of colon] Onset: 06-09-2022 08-28-2020 Episodic Other gastrointestinal disorders (11 sources) Chronic constipation with overflow 08-28-2020 Episodic Other gastrointestinal disorders (4 sources) Other fecal abnormalities; 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: [OTHER FECAL ABNORMALITIES] Onset: 02-27-2023 Episodic Other gastrointestinal disorders (10 sources) Urgent desire for stool; 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: [Fecal urgency] Onset: 04-13-2023 Episodic Other gastrointestinal disorders (2 sources) Abnormal feces; 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: [Other fecal abnormalities] Onset: 04-13-2023 Episodic Other gastrointestinal disorders (8 sources) Loose stool 04-13-2023 Episodic Other gastrointestinal disorders (6 sources) Abdominal wind pain; 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: [Gas pain] Onset: 06-10-2023 Episodic Other gastrointestinal disorders (2 sources) Constipation, unspecified; 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: [Constipation, unspecified] Onset: 10-01-2023 Episodic Other gastrointestinal disorders (3 sources) Constipation 10-01-2023 Episodic Pulmonary heart disease (2 sources) 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 disease; 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: [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 disease] Onset: 10-05-2022 Chronic Residual codes; unclassified (1 source) Sleep apnea, unspecified; 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: [SLEEP APNEA UNSPECIFIED] Onset: 08-27-2022 Chronic Residual codes; unclassified (7 sources) Family history of malignant neoplasm of digestive organ; 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: [Family history of malignant neoplasm of digestive organs] Onset: 03-31-2022 Episodic Residual codes; unclassified (11 sources) Family history of cancer of colon 03-31-2022 Episodic Residual codes; unclassified (6 sources) Localized edema; 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: [LOCALIZED EDEMA] Onset: 11-02-2022 Episodic Unclassified (4 sources) CHRN KIDNEY DISEASE STG 3 UNSP; 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: [CHRN KIDNEY DISEASE STG 3 UNSP] Onset: 08-27-2022 Unclassified (3 sources) CONTACT W/AND (SUSP) EXPOS COVID-19; 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: [CONTACT W/AND (SUSP) EXPOS COVID-19] Onset: 06-19-2022 Unclassified (1 source) COUGH, UNSPECIFIED; 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: [COUGH, UNSPECIFIED] Onset: 06-19-2022 Unclassified (3 sources) Finding of sensation of abdomen 10-01-2023 Unclassified (2 sources) Longstanding persistent atrial fibrillation; 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: [Longstanding persistent atrial fibrillation] Onset: 09-17-2023 Unclassified (1 source) Other pericardial effusion (noninflammatory); 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: [Other pericardial effusion (noninflammatory)] Onset: 10-05-2022 Viral infection (3 sources) COVID-19; 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: [COVID-19] Onset: 07-18-2022 Past or Other Problems Problem Classification Problem Date Documented Da te Episodic/Chronic Acute and unspecified renal failure (1 source) Acute kidney failure, unspecified; 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: [ACUTE KIDNEY FAILURE UNSPECIFIED] Onset: 08-27-2022 Episodic Bacterial infection; unspecified site (1 source) Unspecified Escherichia coli [E. 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; 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: [CENTRAL OFFICE REPAIRER CURRENT USE OF ASPIRIN] Onset: 08-27-2022 Episodic Other aftercare (1 source) jail (current) use of anticoagulants; 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: [JAIL CURRNT USE ANTICOAGULANTS] Onset: 08-27-2022 Episodic Other aftercare (1 source) Other group home (current) drug therapy; 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: [OTH JAIL CURRENT DRUG THERAPY] Onset: 08-27-2022 Episodic Other circulatory disease (1 source) Other specified symptoms and signs involving the circulatory and respiratory systems; 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: [OTH SPEC SX SIGNS INVLV CIRC RS] Onset: 06-19-2022 Episodic Residual codes; unclassified (1 source) Edema, unspecified; 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: [EDEMA UNSPECIFIED] Onset: 08-27-2022 Episodic Unclassified (1 source) CHRN KIDNEY DISEASE STG 3 UNSP; 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: [CHRN KIDNEY DISEASE STG 3 UNSP] Onset: 12-28-2022 Unclassified (1 source) CONTACT W/AND (SUSP) EXPOS COVID-19; 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: [CONTACT W/AND (SUSP) EXPOS COVID-19] Onset: 07-13-2022 Unclassified (1 source) Other pericardial effusion (noninflammatory); 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: [Other pericardial effusion (noninflammatory)] Onset: 09-17-2023 Urinary tract infections (1 source) Urinary tract infection, site not specified; 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: [UTI SITE NOT SPECIFIED] Onset: 08-27-2022 Episodic Results Test Name Value Interpretation Reference Range Facility [id number] Called and spoke with patient and rescheduled patients appointment from 05/31 to 06/07. [facility] [id number] 36 Called patient lvm to contact the office back to reschedule appointment. [facility] Follow-Upon 11-17-2023 Follow-Up [id number] Nadir Heredia 1940 M Date Provider Department Center 11/17/2023 RUTHIE OWEN [facility] NEPHRO Comprehensiv Family History Problem Relation Age of Onset Coronary artery disease Father Family Status - Relation Status Age at Father Level of Service:53395 IN OFFICE/OUTPATIENT ESTABLISHED MOD MDM 30 MIN (GC) Reason for Visit and Comments: Follow-up [371957] Chronic Kidney Disease [176] Normal [facility] Lab Reportson 10-21-2023 Lab Reports [id number] [place] [facility]/Clin ic Noteon 10-18-2023 Gastroenterology Office/Clinic Note Chief Complaint Constipation HPI Staff This is a 83 year old male who presents today for a 2 week follow-up. Patient states that constipation had improved for a few days and then started again after hospital. History of Present Illness Patient is a 83-year-old male who presents for follow-up. Patient was previously evaluated 10/01/2023. Patient with loose stools during previous evaluation. Patient with family history of colon cancer?patient's mother. Had previously discussed colonoscopy to further evaluate symptoms however, patient had previously refused. Patient with history of cholecystectomy years ago. Presents with his daughter today. PMH of asthma, DM, type 2, atrial fibrillation?managed by patient's PCP. Colonoscopy completed 05/11/2022 revealed tubular adenoma removed from ascending colon, tubular adenoma removed from rectum, diverticulosis, hemorrhoids- Dr. Mendez recommended for patient to have repeat colonoscopy in 5 years (2026). Labs completed 03/2023 revealed unremarkable CBC, CMP revealed elevated BUN and creatinine?patient to follow-up with PCP regarding, low calcium?patient to follow-up with PCP regarding. Stool testing negative for infectious process 04/15/2023. Stool testing completed 04/2023 negative for Campylobacter, Salmonella, Shigella, Shiga toxin, Vibrio, Rotavirus, Norovirus, Yersinia enterocolitica, and stool testing for C. difficile unable to be completed per lab in relation to stool consistency. Patient reported during most recent visit with me that he had been taking align probiotics which were helping him. He reported he was recently evaluated by his PCP for flulike symptoms and tested negative for flu and COVID-19. He reported having 2-3 bowel movements a week and stool was hard in consistency over the last 2 months. He also reported having lower abdominal cramping occurring daily. Reported gas had improved. He also reported nausea daily over the last 2 months. Patient was ordered CBC/CMP, TSH. Patient was educated regarding fiber supplementation daily, to ensure he was drinking plenty of water, to start MiraLAX daily, to eat kiwi fruit daily. Patient was also ordered x-ray of abdomen. X-ray of abdomen 10/01/2023 revealed fecal material scattered in colon, no evidence of bowel obstruction. No labs available to review during today's encounter. During today's visit, patient reports Wednesday he went to hospital regarding shortness of breath and was treated for CHF- reports his Lasix was increased during evaluation in ED. Patient reports he was having improvement in constipation with miralax and fiber supplementation, then following ED visit, then his constipation worsened as he was unable to take miralax and fiber supplementation. He explains probiotics are helping his gas. He has not yet resumed miralax however, is still taking 3 capsules of fiber supplementation daily. Is not drinking much water. He has not had a BM in 3 days. He reports he was nauseated last night and was unable to have a BM. Denies black/bloody stools, vomiting, fevers/chills, and denies having any other GI complaints. Review of Systems PHQ Score Initial Depression Screen Score: 0 SCORE ROS - Provider Constitutional: no fever, no chills. Skin: no Jaundice. ENMT: Denies dysphagia and heartburn. Respiratory: no shortness of breath. Cardiovascular: no chest pain. Gastrointestinal: no nausea, no vomiting, no diarrhea, no GI bleeding. Physical Exam Vitals & Measurements T: 36.6 ?C(Temporal Artery) HR: 91(Peripheral) BP: 138/70 HT: 73 in HT: 185 cm WT: 91.4 kg WT: 201.08 lb BMI: 26.71 General: Well developed, well nourished, in no acute distress Head: Normocephalic/atraum atic Lungs: Normal respiratory effort and clear to auscultation Cardio: Grade III-IV/ systolic heart murmur, Irregular rate and rhythm- follows with cardiology regarding, normal S1 and S2, no rub Abdomen: Soft, non-distended, non-tender. Normoactive bowel sounds present in all 4 abdominal quadrants, bilaterally. Mental Status: Alert and oriented x3. Normal mood and affect Assessment/Plan 1. Constipation (K59.00: Constipation, unspecified) Initially improved with miralax and fiber supplementation. Worse since he stopped taking miralax. Is having nausea with no BM in 3 days- likely related to constipation. Family history of colon cancer?patient's mother. Colonoscopy completed 05/11/2022 revealed tubular adenoma removed from ascending colon, tubular adenoma removed from rectum, diverticulosis, hemorrhoids- Dr. Mendez recommended for patient to have repeat colonoscopy in 5 years (2026). Labs completed 03/2023 revealed unremarkable CBC, CMP revealed elevated BUN and creatinine?patient to follow-up with PCP regarding, low calcium?patient to follow-up with PCP regarding. Was previously ordered CBC/CMP, TSH- not done- educated to complete. X-ray of abdomen 10/01/2023 revealed fecal material scattered in colon, no evidence of bowel obstruction. Educated to continue fiber supplem (more content not included)... Normal [facility] Comment on above: Result Comment: Elec tronically Signed By: Nereyda Gomez CNP\.br\Date and Time Signed: 10/18/23 11:30 EST Ambulatory Visit Summaryon 1 12-14-2022 Ambulatory Visit Summary NADIR HEREDIA :1940 Visit Date:10/14/2023 Ambulatory Visit Instructions Your Diagnosis Constipation History of colon polyps Family history of colon cancer Your Care Team Attending Physician - Nereyda Gomez CNP Primary Care Physician - Van Sung MD This Is Your Medications List Contact prescribing physician if questions or concerns NIFEdipine acyclovir apixaban (Eliquis) aspirin budesonide-formotero l (Symbicort) clonidine dicyclomine empagliflozin (Jardiance 10 mg oral tablet) ezetimibe (Zetia) ferrous sulfate furosemide (Lasix) gabapentin glimepiride hydrALAZINE labetalol magnesium oxide metoclopramide omeprazole pioglitazone (pioglitazone 30 mg Tab) potassium chloride (Klor-Con) prednisoLONE ophthalmic (Pred Mild) primidone (primidone 50 mg Tab) psyllium (Metamucil 525 mg oral capsule) sitagliptin (Januvia) tamsulosin (Flomax) tiotropium (Spiriva Respimat 1.25 mcg/inh inhalation aerosol) Procedures Performed Colonoscopy (05/11/2022), Cardioversion (01/11/2017), Back, Cholecystectomy, Colonoscopy, History of hernia repair, Tonsillectomy. Discharge Vitals Temperature (Temporal Artery) 36.6 ?C Heart Rate (Peripheral) 91 Blood Pressure 138/70 Height 73 in Height 185 cm Weight 201.08 lb Weight 91.4 kg BMI 26.71 What to do next Scheduled Follow-Up Appointments 2023 2:00 PM EST With: Nereyda Gomez CNP Where: [facility] Normal [facility] Patient Educationon 10-14-20 23 Patient Education Gastroenterology Constipation, Adult Constipation is when a person has fewer than three bowel movements in a week, has difficulty having a bowel movement, or has stools (feces) that are dry, hard, or larger than normal. Constipation may be caused by an underlying condition. It may become worse with age if a person takes certain medicines and does not take in enough fluids. Follow these instructions at home: Eating and drinking ? Eat foods that have a lot of fiber, such as beans, whole grains, and fresh fruits and vegetables. ? Limit foods that are low in fiber and high in fat and processed sugars, such as fried or sweet foods. These include malawian fries, hamburgers, cookies, candies, and soda. ? Drink enough fluid to keep your urine pale yellow. General instructions ? Exercise regularly or as told by your health care provider. Try to do 150 minutes of moderate exercise each week. ? Use the bathroom when you have the urge to go. Do not hold it in. ? Take yeim-pyz-mkmqtis and prescription medicines only as told by your health care provider. This includes any fiber supplements. ? During bowel movements: ? Practice deep breathing while relaxing the lower abdomen. ? Practice pelvic floor relaxation. ? Watch your condition for any changes. Let your health care provider know about them. ? Keep all follow-up visits as told by your health care provider. This is important. Contact a health care provider if: ? You have pain that gets worse. ? You have a fever. ? You do not have a bowel movement after 4 days. ? You vomit. ? You are not hungry or you lose weight. ? You are bleeding from the opening between the buttocks (anus). ? You have thin, pencil-like stools. Get help right away if: ? You have a fever and your symptoms suddenly get worse. ? You leak stool or have blood in your stool. ? Your abdomen is bloated. ? You have severe pain in your abdomen. ? You feel dizzy or you faint. Summary ? Constipation is when a person has fewer than three bowel movements in a week, has difficulty having a bowel movement, or has stools (feces) that are dry, hard, or larger than normal. ? Eat foods that have a lot of fiber, such as beans, whole grains, and fresh fruits and vegetables. ? Drink enough fluid to keep your urine pale yellow. ? Take nxox-zjy-rfxmala and prescription medicines only as told by your health care provider. This includes any fiber supplements. This information is not intended to replace advice given to you by your health care provider. Make sure you discuss any questions you have with your health care provider. Document Revised: 09/18/2020 Document Reviewed: 09/18/2020 [employer] Patient Education ? 2022 [employer]. [place] 36on 10-12-2023 36 Patient called to make you aware that he was in [facility] ED on (Wednesday) for SOB. He wanted you to look over his records. I have uploaded them all into his digital media designer for your review. His BNP is increased to 4000 and was previously 2600 about 1 month ago. Looks like they gave him extra lasix in the ED and recommended he follow up with Dr. Sung outpatient. Can you please review and let me know if you'd like anything done/ordered? Thanks. [facility] XR Abdomen 2 Viewson 023 XR Abdomen 2 Views Exam Date/Time: 10/01/2023 13:37 EST Reason for Exam: K59.00 Constipation, unspecified, R10.9 Unspecified abdominal pain;Abdominal pain Report IMPRESSION: NONSPECIFIC ABDOMINAL GAS PATTERN, WITHOUT EVIDENCE OF BOWEL OBSTRUCTION OR FREE AIR. CLINICAL HISTORY: Abdominal pain, K59.00 Constipation, unspecified, R10.9 Unspecified abdominal pain COMMENT: 4 views. There is gas in nondistended bowel. No dilated bowel loops are noted. There is fecal material scattered in the colon. No air-fluid level nor free air is noted. There are extensive arterial calcifications. No abdominal aortic aneurysm is evident. There are few small left upper quadrant calcifications, suspected to represent splenic granulomatous calcifications. There is a calcified phlebolith in the left pelvis. There are surgical clips projecting on the right mid abdomen and there is a surgical clip in the right pelvis. There is dextroscoliosis of the thoracolumbar spine. Although not adequately assessed on this study, there are are apparent pleural and parenchymal fibrotic changes at both lung bases. Ordering Provider: , FINAL REPORT Dictated: 10/05/2023 3:03 pm Marc Colmenares M.D. Signed (Electronic Signature): 10/05/2023 3:03 pm Signed by: Marc Colmenares M.D. Transcribed by: MARII Technologist: EDUARDA Technical Comments Radiation Dose: Kar in mGy = . DAP = . Normal [facility] Lab Reportson 10-04-2023 Lab Reports [id number] 1#1.00TIFF Normal [facility] RAD - MISCon 10-04-2023 RAD - MISC [id number] #1.00TIFF Normal [facility] Ambulatory Visit Summaryon 1 12-01-2022 Ambulatory Visit Summary ZOEYNADIR SULLIVAN Joy :1940 Visit Date:10/01/2023 Ambulatory Visit Instructions Your Diagnosis Constipation Abdominal cramping Nausea History of colon polyps Family history of colon cancer Your Care Team Attending Physician - Nereyda Gomez CNP Primary Care Physician - Van Sung MD This Is Your Medications List Contact prescribing physician if questions or concerns NIFEdipine acyclovir apixaban (Eliquis) aspirin budesonide-formotero l (Symbicort) clonidine dicyclomine empagliflozin (Jardiance 10 mg oral tablet) ezetimibe (Zetia) ferrous sulfate furosemide (Lasix) gabapentin glimepiride hydrALAZINE labetalol magnesium oxide metoclopramide omeprazole pioglitazone (pioglitazone 30 mg Tab) potassium chloride (Klor-Con) prednisoLONE ophthalmic (Pred Mild) primidone (primidone 50 mg Tab) psyllium (Metamucil 525 mg oral capsule) sitagliptin (Januvia) tamsulosin (Flomax) tiotropium (Spiriva Respimat 1.25 mcg/inh inhalation aerosol) Procedures Performed Colonoscopy (05/11/2022), Cardioversion (01/11/2017), Back, Cholecystectomy, Colonoscopy, History of hernia repair, Tonsillectomy. Discharge Vitals Temperature (Temporal Artery) 36.9 ?C Heart Rate (Peripheral) 81 Respiratory Rate 14 Blood Pressure 179/66 Height 73 in Height 185 cm Weight 206.36 lb Weight 93.8 kg BMI 27.41 What to do next Scheduled Follow-Up Appointments 2022 2:20 PM EST With: Nereyda Gomez CNP Where: [facility] Invalid Interpretation Code Abdominal cramping [facility] Consent for Treatmenton 09-15 Consent for Treatment [id number] #1.00TIFF Normal [facility] Gastroenterology Office/Clin ic Noteon 10-01-2023 Gastroenterology Office/Clinic Note Chief Complaint follow up HPI Staff This is a 83 year old male who presents today for a follow-up from 06/10/23 office visit. History of Present Illness Patient is a 83-year-old male who presents for follow-up. Presents with his today. Patient was previously evaluated 05/2023 for loose stools. Patient with family history of colon cancer?patient's mother. Patient had previously reported change in bowel habits with difficulty having a bowel movement for 2 weeks, then 1 week later started having loose stools with fecal urgency. Had discussed colonoscopy to further evaluate symptoms however patient had refused. Patient with history of cholecystectomy years ago. Patient with PMH of asthma, DM, type 2, atrial fibrillation?managed by patient's PCP. Colonoscopy completed 05/11/2022 revealed tubular adenoma removed from ascending colon, tubular adenoma removed from rectum, diverticulosis, hemorrhoids- Dr. Mendez recommended for patient to have repeat colonoscopy in 5 years (2026). Labs completed 03/2023 revealed unremarkable CBC, CMP revealed elevated BUN and creatinine?patient to follow-up with PCP regarding, low calcium?patient to follow-up with PCP regarding. Stool testing negative for infectious process 04/15/2023. Stool testing completed 04/2023 negative for Campylobacter, Salmonella, Shigella, Shiga toxin, Vibrio, Rotavirus, Norovirus, Yersinia enterocolitica, and stool testing for C. difficile unable to be completed per lab in relation to stool consistency. Patient reported during visit with me that he was having some improvement in loose stools and fecal urgency. He indicated he was having no bowel movement for 2 days, then having some formed and some loose stools. He reported 50% loose stools and 50% formed stools. Patient was advised to increase fiber to 3 capsules daily. Patient was also educated regarding probiotics daily. During today's visit, patient reports Align probiotics has been helping him. He explains he was recently evaluated by his PCP for flu-like symptoms and reports he tested negative for Flu and COVID-19. Is currently having 2-3 BMs a week, stool hard in consistency over the last 2 months. Has to push/strain to have a BM. Is having lower abdominal cramping occurring daily over the last 2 months. Gas has improved. Is having nausea daily over the last 2 months. Denies acid reflux or heartburn. Is taking 3 capsules of fiber daily. Reports he is not drinking much water. Denies bloody stools, vomiting, fevers/chills, and denies having any other GI complaints. Review of Systems PHQ Score Initial Depression Screen Score: 0 SCORE ROS - Provider Constitutional: no fever, no chills. Skin: no Jaundice. ENMT: Denies dysphagia and heartburn. Respiratory: no shortness of breath. Cardiovascular: no chest pain. Gastrointestinal: yes nausea, no vomiting, no diarrhea, no GI bleeding. Physical Exam Vitals & Measurements T: 36.9 ?C(Temporal Artery) HR: 81(Peripheral) RR: 14 BP: 179/66 HT: 73 in HT: 185 cm WT: 93.8 kg WT: 206.36 lb BMI: 27.41 General: Well developed, well nourished, in no acute distress Head: Normocephalic/atraum atic Lungs: Normal respiratory effort and clear to auscultation Cardio: Grade III-IV/ systolic heart murmur, Irregular rate and rhythm- follows with cardiology regarding, normal S1 and S2, no rub Abdomen: Soft, non-distended, non-tender. Normoactive bowel sounds present in all 4 abdominal quadrants, bilaterally. Mental Status: Alert and oriented x3. Normal mood and affect Assessment/Plan BP elevated today at 17/66- BP managed by patient's PCP. 1. Constipation (K59.00: Constipation, unspecified) Is currently having 2-3 BMs a week, stool hard in consistency over the last 2 months. Has to push/strain to have a BM. Reports he is not drinking much water. Previous Colonoscopy completed 05/11/2022 revealed tubular adenoma removed from ascending colon, tubular adenoma removed from rectum, diverticulosis, hemorrhoids- Dr. Mendez recommended for patient to have repeat colonoscopy in 5 years (2026). Ordered CBC/CMP, TSH. Educated to continue fiber supplementation daily, educated to drink adequate amount of water daily, miralax 1 capful daily PRN for constipation, educated to eat kiwi fruit daily. Ordered X-ray of abdomen to evaluate for acute process/further evaluate constipation. Ordered: CBC w/ Auto Diff Comprehensive Metabolic Panel Thyroid Stimulating Hormone XR Abdomen 2 Views 2. Abdominal cramping (R10.9: Unspecified abdominal pain) Is having lower abdominal cramping occurring daily over the last 2 months. Gas has improved. Previous Colonoscopy completed 05/11/2022 revealed tubular adenoma removed from ascending colon, tubular adenoma removed from rectum, diverticulosis, hemorrhoids- Dr. Mendez recommended for patient to have repeat colonoscopy in 5 years (2026). Ordered CBC/CMP, TSH. Educated to continue fiber supplementation daily, educated to drink adequate amount of water daily, educated t (more content not included)... Normal [facility] Comment on above: Result Comment: Elec tronically Signed By: Patricia BRITT, Nereyda Marroquin\.br\Date and Time Signed: 10/01/23 12:54 EST Patient Educationon 10-01-20 Patient Education Gastroenterology High-Fiber Eating Plan Fiber, also called dietary fiber, is a type of carbohydrate. It is found foods such as fruits, vegetables, whole grains, and beans. A high-fiber diet can have many health benefits. Your health care provider may recommend a high-fiber diet to help: ? Prevent constipation. Fiber can make your bowel movements more regular. ? Lower your cholesterol. ? Relieve the following conditions: ? Inflammation of veins in the anus (hemorrhoids). ? Inflammation of specific areas of the digestive tract (uncomplicated diverticulosis). ? A problem of the large intestine, also called the colon, that sometimes causes pain and diarrhea (irritable bowel syndrome, or IBS). ? Prevent overeating as part of a weight-loss plan. ? Prevent heart disease, type 2 diabetes, and certain cancers. What are tips for following this plan? Reading food labels ? Check the nutrition facts label on food products for the amount of dietary fiber. Choose foods that have 5 grams of fiber or more per serving. ? The goals for recommended daily fiber intake include: ? Men (age 50 or younger): 34?38 g. ? Men (over age 50): 28?34 g. ? Women (age 50 or younger): 25?28 g. ? Women (over age 50): 22?25 g. Your daily fiber goal is g. Shopping ? Choose whole fruits and vegetables instead of processed forms, such as apple juice or applesauce. ? Choose a wide variety of high-fiber foods such as avocados, lentils, oats, and kidney beans. ? Read the nutrition facts label of the foods you choose. Be aware of foods with added fiber. These foods often have high sugar and sodium amounts per serving. Cooking ? Use whole-grain flour for baking and cooking. ? Cook with brown rice instead of white rice. Meal planning ? Start the day with a breakfast that is high in fiber, such as a cereal that contains 5 g of fiber or more per serving. ? Eat breads and cereals that are made with whole-grain flour instead of refined flour or white flour. ? Eat brown rice, bulgur wheat, or millet instead of white rice. ? Use beans in place of meat in soups, salads, and pasta dishes. ? Be sure that half of the grains you eat each day are whole grains. General information ? You can get the recommended daily intake of dietary fiber by: ? Eating a variety of fruits, vegetables, grains, nuts, and beans. ? Taking a fiber supplement if you are not able to take in enough fiber in your diet. It is better to get fiber through food than from a supplement. ? Gradually increase how much fiber you consume. If you increase your intake of dietary fiber too quickly, you may have bloating, cramping, or gas. ? Drink plenty of water to help you digest fiber. ? Choose high-fiber snacks, such as berries, raw vegetables, nuts, and popcorn. What foods should I eat? Fruits Berries. Pears. Apples. Oranges. Avocado. Prunes and raisins. Dried figs. Vegetables Sweet potatoes. Spinach. Kale. Artichokes. Cabbage. Broccoli. Cauliflower. Green peas. Carrots. Squash. Grains Whole-grain breads. Multigrain cereal. Oats and oatmeal. Brown rice. Barley. Bulgur wheat. Millet. Quinoa. Bran muffins. Popcorn. [place] wafer crackers. Meats and other proteins [employer] beans, kidney beans, and mendez beans. Soybeans. Split peas. Lentils. Nuts and seeds. Dairy Fiber-fortified yogurt. Beverages Fiber-fortified soy milk. Fiber-fortified orange juice. Other foods Fiber bars. The items listed above may not be a complete list of recommended foods and beverages. Contact a dietitian for more information. What foods should I avoid? Fruits Fruit juice. Cooked, strained fruit. Vegetables Fried potatoes. Canned vegetables. Well-cooked vegetables. Grains White bread. Pasta made with refined flour. White rice. Meats and other proteins Fatty cuts of meat. Fried chicken or fried fish. Dairy Milk. Yogurt. Cream cheese. Sour cream. Fats and oils [place]. Beverages Soft drinks. Other foods Cakes and pastries. The items listed above may not be a complete list of foods and beverages to avoid. Talk with your dietitian about what choices are best for you. Summary ? Fiber is a type of carbohydrate. It is found in foods such as fruits, vegetables, whole grains, and beans. ? A high-fiber diet has many benefits. It can help to prevent constipation, lower blood cholesterol, aid weight loss, and reduce your risk of heart disease, diabetes, and certain cancers. ? Increase your intake of fiber gradually. Increasing fiber too quickly may cause cramping, bloating, and gas. Drink plenty of water while you increase the amount of fiber you consume. ? The best sources of fiber include whole fruits and vegetables, whole grains, nuts, seeds, and beans. This information is not intended to replace advice given to you by your health care provider. Make sure you discuss any questions you have with your health care provider. Document Revised: (more content not included)... [place] 36on 09-20-2023 36 Called and spoke with and rescheduled appointment and informed her patient would need to get labs done. [facility] 36 Patients called in to reschedule appointment from 09/08 [facility] Office Visiton 09-17-2023 Follow-up visit [id number] Nadir Heredia 1940 M Date Provider Department Center 09/17/2023 [facility] Family History Problem Relation Age of Onset Coronary artery disease Father Family Status - Relation Status Age at Father Level of Service:69231 IN OFFICE/OUTPATIENT ESTABLISHED MOD MDM 30-39 MIN Reason for Visit and Comments: Follow-up [015911] [facility] HPon 08-31-2023 [facility] Subjective Nadir Hamilton Kirit is a 83 y.o. year old male patient being seen for Follow-up Patient Active Problem List Diagnosis Aortic valve disorder Atherosclerosis of renal artery (CMS/HCC) Chronic atrial fibrillation (CMS/HCC) Coronary arteriosclerosis Bradycardia Aortic valve stenosis Type 1 diabetes mellitus (CMS/HCC) Type 2 diabetes mellitus with stage 3 chronic kidney disease, without long-term current use of insulin (CMS/HCC) Stage 3 chronic kidney disease (CMS/HCC) Sleep apnea Pulmonary edema Primary hypertension Dyspnea Edema of extremities Acute on chronic diastolic heart failure (CMS/HCC) 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 disease (CMS/HCC) Pericardial effusion Chronic constipation with overflow Colon polyps Diverticulosis Family history of colon cancer Fecal urgency High serum creatinine Loose stools History of colon polyps Family History Family History Problem Relation Name Age of Onset Coronary artery disease Father Social History Tobacco Use Smoking status: Former Types: Cigarettes Smokeless tobacco: Never Substance Use Topics Alcohol use: Not Currently Drug use: Never JOHN Nadir is seen in follow up. He is an 83-year-old man with paroxysmal atrial fibrillation maintained on anticoagulation with Eliquis, aortic stenosis, renal artery stenosis, and hypertension. He had stenting of the left renal artery from the left radial approach on 05/01/2015 (Express SD 6 mm x 18 mm stent). He cannot take statins due to liver side effects. On 09/04/2019 he was having symptoms of shortness of breath on exertion and lower extremity edema. His echo had shown severely elevated RVSP and pericardial effusion. He responded to increasing diuretic therapy. Currently taking Lasix 60 mg daily with extra 40 mg if needed for worsening lower extremity edema. He was admitted to the [facility] in August 2022 due to hyponatremia, hyperkalemia and acute kidney injury, leukocytosis secondary to COVID-19 causing dehydration. I saw him on 05/24/2023 and the office and he had significant evidence of volume overload by exam and echocardiogram. I intensified his diuretic regimen. He ended up getting admitted to the [facility] with acute heart failure exacerbation and underwent diuresis. He is currently on amoxicillin for 10 days due to URI. Today he is seen in follow-up. He has been doing better. He has no chest pain. He has shortness of breath on exertion, NYHA class II. He also has mild lower extremity swelling which has improved significantly from before. He does not feel palpitations. He has no syncope. No dizziness or lightheadedness. Review of Systems Cardiovascular: Positive for dyspnea on exertion and leg swelling. All other systems reviewed and are negative. Objective Visit Vitals BP 116/70 (BP Location: Right arm, Patient Position: Sitting, BP Cuff Size: Adult) Pulse 72 Wt 95.3 kg (210 lb) SpO2 93% BMI 27.71 kg/m??? Smoking Status Former BSA 2.22 m??? Physical Exam Constitutional: Appearance: He is well-developed. He is not ill-appearing. HENT: Head: Normocephalic and atraumatic. Nose: Nose normal. Eyes: General: No scleral icterus. Pupils: Pupils are equal, round, and reactive to light. Neck: Thyroid: No thyromegaly. Vascular: No JVD. Cardiovascular: Rate and Rhythm: Normal rate. Rhythm irregularly irregular. Pulses: Radial pulses are 2+ on the right side and 2+ on the left side. Heart sounds: Murmur heard. Systolic (RUSB) murmur is present with a grade of 3/6. No friction rub. No gallop. Pulmonary: Effort: Pulmonary effort is normal. No respiratory distress. Breath sounds: Normal breath sounds. No wheezing or rales. Chest: Chest wall: No tenderness. Abdominal: General: Bowel sounds are normal. There is no distension. Palpations: Abdomen is soft. Tenderness: There is no abdominal tenderness. Musculoskeletal: General: No swelling. Cervical back: Neck supple. Right lower le+ Pitting Edema present. Left lower le+ Pitting Edema present. Skin: General: Skin is warm and dry. Neurological: General: No focal deficit present. Mental Status: He is alert and oriented to person, place, and time. Psychiatric: Mood and Affect: Mood normal. Behavior: Behavior is cooperative. Judgment: Judgment normal. Allergies Allergies Allergen Reactions Iodinated Contrast Media Nitroglycerin Txvwnrj-Gin-Sts Reductase Inhibitors Medications Current Outpatient Medications: acyclovir (Zovirax) 400 mg tablet, Take 1 tablet twice a day by oral route for 30 days., Disp: , Rfl: Align 4 mg capsule, TAKE 1 CAPSULE BY MOUTH DAILY AFTER COMPLETING THE ANTIBIOTICS COURSE, Disp: , Rfl: apixaban (Eliquis) 2.5 mg tablet, Take 1 tablet twice a day by oral route for 90 days., Disp: , Rfl: aspirin 81 mg EC tablet, Take 1 ta (more content not included)... [facility] NURSNOTEon 08-31-2023 NURSNOTE Pt performed and passed bedside swallow study. RN educated pt on d/c instructions. RN encouraged pt to voice any questions or concerns. Pt verbalizes no questions or concerns at this time. Pt was wheeled off of unit with all of belongings. Normal [facility] Telephoneon 08-24-2023 Telephone [id number] Nadir Heredia 1940 M Date Provider Department Center 08/24/2023 RABIA KONG [facility] Family History Problem Relation Age of Onset Coronary artery disease Father Family Status - Relation Status Age at Father [facility] Office Visiton 07-21-2023 Follow-up visit [id number] Nadir Heredia 1940 M Date Provider Department Center 07/21/2023 PONCHOJACEYCLARIBEL DINH [facility] Family History Problem Relation Age of Onset Coronary artery disease Father Family Status - Relation Status Age at Father Level of Service:44559 IN OFFICE/OUTPATIENT ESTABLISHED MOD [facility] 30-39 MIN Reason for Visit and Comments: Follow-up [248101] [facility] Office Visiton 06-14-2023 Follow-up visit [id number] Nadir Heredia 1940 M Date Provider Department Center 06/14/2023 RYDER RODRÍGUEZ [facility] Family History Problem Relation Age of Onset Coronary artery disease Father Family Status - Relation Status Age at Father Level of Service:54512 IN OFFICE/OUTPATIENT ESTABLISHED MOD [facility] 30-39 MIN [facility] Ambulatory Visit Summaryon 0 06-10-2023 Ambulatory Visit Summary NADIR HEREDIA :1940 Visit Date:06/10/2023 Ambulatory Visit Instructions Your Diagnosis Loose stools Gas pain Fecal urgency History of colon polyps Family history of colon cancer Your Care Team Attending Physician - Nereyda Gomez CNP Primary Care Physician - Van Sung MD This Is Your Medications List bifidobacterium infantis (Align 4 mg oral capsule) Contact prescribing physician if questions or concerns NIFEdipine acyclovir apixaban (Eliquis) aspirin budesonide-formotero l (Symbicort) clonidine dicyclomine empagliflozin (Jardiance 10 mg oral tablet) ezetimibe (Zetia) ferrous sulfate furosemide (Lasix) gabapentin glimepiride hydrALAZINE labetalol magnesium oxide metoclopramide omeprazole pioglitazone (pioglitazone 30 mg Tab) potassium chloride (Klor-Con) prednisoLONE ophthalmic (Pred Mild) primidone (primidone 50 mg Tab) psyllium (Metamucil 525 mg oral capsule) sitagliptin (Januvia) tamsulosin (Flomax) tiotropium (Spiriva Respimat 1.25 mcg/inh inhalation aerosol) Procedures Performed Colonoscopy (05/11/2022), Cardioversion (01/11/2017), Back, Cholecystectomy, Colonoscopy, History of hernia repair, Tonsillectomy. Discharge Vitals Heart Rate (Peripheral) 76 Respiratory Rate 16 Blood Pressure 121/64 Height 185 cm Height 73 in Weight 97 kg Weight 213.4 lb BMI 28.34 What to do next Scheduled Follow-Up Appointments Wednesday 10:40 AM EDT With: Nereyda Gomez CNP Where: [facility] Normal [facility] Gastroenterology Office/Clin ic Noteon 06-10-2023 Gastroenterology Office/Clinic Note HPI Staff Nadir is an 83 y.o. male here for 2 month follow up He continues with intermittent diarrhea. He states he's been able to hold stool until reaches bathroom. He states he has terrible gas recently hospitalized at [facility] for heart failure He continues with metoclopramide 5 mg BID , omeprazole 20 mg daily- he feels this works well He is not taking Align He is has a hemorrhoid and is applying hydrocortisone cream. he continues with Metamucil 2 caps daily . History of Present Illness Patient is a 83-year-old male who presents for follow-up. Patient was previously evaluated 03/2023 for loose stools. Patient with family history of colon cancer?patient's mother. Patient reported during visit with me that he was experiencing change in bowel habits over the last 2 weeks with difficulty having a bowel movement 2 weeks ago then 1 week later, started having loose stools with fecal urgency. Patient was ordered CBC/CMP and stool testing. Had discussed colonoscopy to further evaluate symptoms?patient had refused. Presents with his today. Patient with family history of colon cancer?patient's mother. Reports hx. cholecystectomy years ago. Patient with PMH of asthma, DM, type 2, atrial fibrillation?managed by patient's PCP. Colonoscopy completed 05/11/2022 revealed tubular adenoma removed from ascending colon, tubular adenoma removed from rectum, diverticulosis, hemorrhoids- Dr. Mendez recommended for patient to have repeat colonoscopy in 5 years (2026). Labs completed 03/2023 revealed unremarkable CBC, CMP revealed elevated BUN and creatinine?patient to follow-up with PCP regarding, low calcium?patient to follow-up with PCP regarding. Stool testing negative for infectious process 04/15/2023. Stool testing completed negative for Campylobacter, Salmonella, Shigella, Shiga toxin, Vibrio, Rotavirus, Norovirus, Yersinia enterocolitica, and stool testing for C. difficile unable to be completed per lab in relation to stool consistency. During today's visit, patient reports he has some improvement in loose stools and fecal urgency. Is currently having no BM for 2 days, then will have some formed and some loose stools. He explains he is currently having 50% loose stools and 50% formed stools. Is having gas for years, occurring daily. Is taking oral iron supplementation that is prescribed by his PCP. Denies bloody stools, nausea/vomiting, fevers/chills, and denies having any other GI complaints. Review of Systems ROS - Provider Constitutional: no fever, no chills. Skin: no Jaundice. ENMT: Denies dysphagia and heartburn. Respiratory: no shortness of breath. Cardiovascular: no chest pain. Gastrointestinal: no nausea, no vomiting, yes loose stools, no GI bleeding. Physical Exam Vitals & Measurements HR: 76(Peripheral) RR: 16 BP: 121/64 SpO2: 95% HT: 73 in HT: 185 cm WT: 97 kg WT: 213.4 lb BMI: 28.34 General: Well developed, well nourished, in no acute distress Head: Normocephalic/atraum atic Lungs: Normal respiratory effort and clear to auscultation Cardio: Grade III/ systolic heart murmur, Irregular rate and rhythm- follows with cardiology regarding, normal S1 and S2, no rub Abdomen: Soft, non-distended, non-tender. Normoactive bowel sounds present in all 4 abdominal quadrants, bilaterally. Mental Status: Alert and oriented x3. Normal mood and affect Assessment/Plan 1. Loose stools (R19.5: Other fecal abnormalities) Improved. Previous Colonoscopy completed 05/11/2022 revealed tubular adenoma removed from ascending colon, tubular adenoma removed from rectum, diverticulosis, hemorrhoids- Dr. Mendez recommended for patient to have repeat colonoscopy in 5 years (2026). Stool testing negative for infectious process 04/15/2023. Stool testing completed negative for Campylobacter, Salmonella, Shigella, Shiga toxin, Vibrio, Rotavirus, Norovirus, Yersinia enterocolitica, and stool testing for C. difficile unable to be completed per lab in relation to stool consistency. Educated to increase fiber to 3 capsules daily. 2. Gas pain (R14.1: Gas pain) Gas for years. Discussed given gas and loose stools, discussed testing for pancreatic insufficiency- patient declines. Previous Colonoscopy completed 05/11/2022 revealed tubular adenoma removed from ascending colon, tubular adenoma removed from rectum, diverticulosis, hemorrhoids- Dr. Mendez recommended for patient to have repeat colonoscopy in 5 years (2026). Stool testing negative for infectious process 04/15/2023. Stool testing completed negative for Campylobacter, Salmonella, Shigella, Shiga toxin, Vibrio, Rotavirus, Norovirus, Yersinia enterocolitica, and stool testing for C. difficile unable to be completed per lab in relation to stool consistency. Educated to increase fiber to 3 capsules daily. Ordered probiotics daily. Ordered: bifidobacterium infantis, 4 mg = 1 cap(s), Oral, Daily, Take after completing the Antibiotics course, X 90 day(s), # 90 cap(s), Refills(s) 0, Pharmacy: [facility]/pharmacy #[id number] (more content not included)... Normal [facility] Comment on above: Result Comment: Elec tronically Signed By: Patricia BRITT, Nereyda Marroquin\.br\Date and Time Signed: 06/10/23 11:02 EDT Patient Educationon 06-10-20 Patient Education Oncology Colon Polyps Colon polyps are tissue growths inside the colon, which is part of the large intestine. They are one of the types of polyps that can grow in the body. A polyp may be a round bump or a mushroom-shaped growth. You could have one polyp or more than one. Most colon polyps are noncancerous (benign). However, some colon polyps can become cancerous over time. Finding and removing the polyps early can help prevent this. What are the causes? The exact cause of colon polyps is not known. What increases the risk? The following factors may make you more likely to develop this condition: ? Having a family history of colorectal cancer or colon polyps. ? Being older than 45 years of age. ? Being younger than 45 years of age and having a significant family history of colorectal cancer or colon polyps or a genetic condition that puts you at higher risk of getting colon polyps. ? Having inflammatory bowel disease, such as ulcerative colitis or Crohn's disease. ? Having certain conditions passed from parent to child (hereditary conditions), such as: ? Familial adenomatous polyposis (FAP). ? Bahena syndrome. ? Turcot syndrome. ? Peutz?Jeghers syndrome. ? MUTYH-associated polyposis (MAP). ? Being overweight. ? Certain lifestyle factors. These include smoking cigarettes, drinking too much alcohol, not getting enough exercise, and eating a diet that is high in fat and red meat and low in fiber. ? Having had childhood cancer that was treated with radiation of the abdomen. What are the signs or symptoms? Many times, there are no symptoms. If you have symptoms, they may include: ? Blood coming from the rectum during a bowel movement. ? Blood in the stool (feces). The blood may be bright red or very dark in color. ? Pain in the abdomen. ? A change in bowel habits, such as constipation or diarrhea. How is this diagnosed? This condition is diagnosed with a colonoscopy. This is a procedure in which a lighted, flexible scope is inserted into the opening between the buttocks (anus) and then passed into the colon to examine the area. Polyps are sometimes found when a colonoscopy is done as part of routine cancer screening tests. How is this treated? This condition is treated by removing any polyps that are found. Most polyps can be removed during a colonoscopy. Those polyps will then be tested for cancer. Additional treatment may be needed depending on the results of testing. Follow these instructions at home: Eating and drinking ? Eat foods that are high in fiber, such as fruits, vegetables, and whole grains. ? Eat foods that are high in calcium and vitamin D, such as milk, cheese, yogurt, eggs, liver, fish, and broccoli. ? Limit foods that are high in fat, such as fried foods and desserts. ? Limit the amount of red meat, precooked or cured meat, or other processed meat that you eat, such as hot dogs, sausages, navarro, or meat loaves. ? Limit sugary drinks. Lifestyle ? Maintain a healthy weight, or lose weight if recommended by your health care provider. ? Exercise every day or as told by your health care provider. ? Do not use any products that contain nicotine or tobacco, such as cigarettes, e-cigarettes, and chewing tobacco. If you need help quitting, ask your health care provider. ? Do not drink alcohol if: ? Your health care provider tells you not to drink. ? You are , may be , or are planning to become . ? If you drink alcohol: ? Limit how much you use to: ? 0?1 drink a day for women. ? 0?2 drinks a day for men. ? Know how much alcohol is in your drink. In the [place] one drink equals one 12 oz bottle of beer (355 mL), one 5 oz glass of wine (148 mL), or one 1? oz glass of hard liquor (44 mL). General instructions ? Take vojx-ewj-kwujwxw and prescription medicines only as told by your health care provider. ? Keep all follow-up visits. This is important. This includes having regularly scheduled colonoscopies. Talk to your health care provider about when you need a colonoscopy. Contact a health care provider if: ? You have new or worsening bleeding during a bowel movement. ? You have new or increased blood in your stool. ? You have a change in bowel habits. ? You lose weight for no known reason. Summary ? Colon polyps are tissue growths inside the colon, which is part of the large intestine. They are one type of polyp that can grow in the body. ? Most colon polyps are noncancerous (benign), but some can become cancerous over time. ? This condition is diagnosed with a colonoscopy. ? This condition is treated by removing any polyps that are found. Most polyps can be removed during a colonoscopy. This information is not intended to replace advice given to you by your health care provider. Make sure you discuss any questions you have with your health care provider. Document Revised: 02/19/2021 D (more content not included)... Normal [facility] Office Visiton 05-24-2023 Follow-up visit [id number] Nadir Heredia 1940 M Date Provider Department Center 05/24/2023 CLARIBEL VILLALOBOS [facility] Family History Problem Relation Age of Onset Coronary artery disease Father Family Status - Relation Status Age at Father Level of Service:42932 IN OFFICE/OUTPATIENT ESTABLISHED MOD MDM 30-39 MIN Normal [facility] Giardia, Direct, EIAon 04-22 G. lamblia Ag IA Ql (Stl) Negative Invalid Interpretation Code Negative [facility] Comment on above: Result Comment: Perf ormed at: [facility] [address] [id number] PhD Huan Vyas Performed By: #### 3 [id number], [id number], [id number], [id number], [id number] ####[facility] [address] [place] [address] O & P EXAM, ROUTINE, REFLEXo n 04-22-2023 Ova and parasites identified Concentration Nom (Stl) Comment Invalid Interpretation Code [facility] Comment on above: Result Comment: No o va, cysts, or parasites seen. One negative specimen does not rule out the possibility of a parasitic infection. Performed at: [address] [id number] PhD Huan Vyas Performed By: #### 3 [id number], [id number], [id number], [id number], [id number] ####[facility] [address] [place] [address] O & P Exam, Routineon 2022 Ova and parasites identified LM Nom (Unsp spec) Final report Invalid Interpretation Code [facility] Comment on above: Result Comment: Thes e results were obtained using wet preparation(s) and trichrome stained smear. This test does not include testing for Cryptosporidium parvum, Cyclospora, or Microsporidia. Performed at: [address] [id number] PhD Huan Vyas Performed By: #### 3 [id number], [id number], [id number], [id number], [id number], [id number] ####[facility] [address] [place] [address] CDiff PCRon 04-15-2023 CDiff PCR Unable to perform test due to consistency of stool. C. Difficile testing will only be performed on diarrheal (unformed) stool unless ileus due to C. difficile is expected. Reference: Clinical Practice Guidelines for Clostridium difficile Infection in Adults, Infection and Hospital Epidemiology March 2010, Vol 31, No 5. Normal [facility] Cdiff Specimen Acceptable Unacceptable Normal [facility] Comment on above: Performed By: #### 3 [id number], [id number], [id number], [id number], [id number], [id number] ####[facility] [address] [place] [address] Order Cancelled YES Normal [facility] Comment on above: Performed By: #### 3 [id number], [id number], [id number], [id number], [id number], [id number] ####[address] [place] [address] Enteric Panel by PCRon 04-15 C. coli+jejuni+upsaliens is DNA SULTANA+non-probe Ql (Stl) Not detected Normal [facility] Comment on above: Result Comment: Test ing was performed utilizing reverse plastic mould maker (RT), polymerase chain reaction (PCR), and array hybridization to detect specific gastrointestinal microbial nucleic acid gene sequences associated with the following pathogenic bacteria and viruses:Campylobacter Group (composed of C. coli, C. jejuni, and C. dion), Salmonella species, Shigella species (including S. dysenteriae, S. boydii, S. sonnei and S. flexneri), Vibrio Group (composed of V. cholera and V. parahaemolyticus), Yersinia enterocolitica, Norovirus GI/GII, and Rotavirus A. In addition, EPdetects Shiga toxin 1 gene and Shiga toxin 2 gene virulence markers. Shiga toxin producing E. coli (STEC) typically harbor one or both genes that encode for Shiga toxins 1 and 2. Campylobacter group, Salmonella species, Shigella species, Vibrio group, Rotavirus A, Shiga Toxin 1, Shiga Toxin 2, Norovirus GI/GII, and Yersinia enterocolitica were tested by Verigene nulcleic acid test. Performed By: #### 3 [id number], [id number], [id number], [id number], [id number], [id number] ####[facility] [address] [place] [address] E. coli stx1+stx2 genes SULTANA+non-probe Ql (Stl) Negative Normal [facility] Comment on above: Performed By: #### 3 [id number], [id number], [id number], [id number], [id number], [id number] ####[facility] [address] [place] [address] Enteric Panel by PCR Negative Normal [facility] Enteric Panel Intrl QC Pass Normal [facility] Comment on above: Result Comment: Test ing was performed utilizing reverse plastic mould maker (RT), polymerase chain reaction (PCR), and array hybridization to detect specific gastrointestinal microbial nucleic acid gene sequences associated with the following pathogenic bacteria and viruses:Campylobacter Group (composed of C. coli, C. jejuni, and C. dion), Salmonella species, Shigella species (including S. dysenteriae, S. boydii, S. sonnei and S. flexneri), Vibrio Group (composed of V. cholera and V. parahaemolyticus), Yersinia enterocolitica, Norovirus GI/GII, and Rotavirus A. In addition, EPdetects Shiga toxin 1 gene and Shiga toxin 2 gene virulence markers. Shiga toxin producing E. coli (STEC) typically harbor one or both genes that encode for Shiga toxins 1 and 2. Performed By: #### 3 [id number], [id number], [id number], [id number], [id number], [id number] ####[facility] [address] [place] [address] Norovirus genogroup I+II RNA SULTANA+non-probe Ql (Stl) Not detected Normal [facility] Comment on above: Performed By: #### 3 [id number], [id number], [id number], [id number], [id number], [id number] ####[facility] [address] [place] [address] Rotavirus A RNA SULTANA+non-probe Ql (Stl) Not detected Normal [facility] Comment on above: Performed By: #### 3 [id number], [id number], [id number], [id number], [id number], [id number] ####[facility] [address] [place] [address] S. enterica+bongori DNA SULTANA+non-probe Ql (Stl) Not detected Normal [facility] Comment on above: Result Comment: This test result should be correlated with clinical presentations and medical history by a healthcare provider to determine its clinical significance. Performed By: #### 3 [id number], [id number], [id number], [id number], [id number], [id number] ####[facility] [address] [place] [address] Shigella species+EIEC invasion plasmid antigen H ipaH gene SULTANA+non-probe Ql (Stl) Not detected Normal [facility] Comment on above: Performed By: #### 3 [id number], [id number], [id number], [id number], [id number], [id number] ####[address] [address] V. cholerae+parahaemolyt icus+vulnificus DNA SULTANA+non-probe Ql (Stl) Not detected Normal [facility] Comment on above: Performed By: #### 3 [id number], [id number], [id number], [id number], [id number], [id number] ####[facility] [address] [place] [address] Y. enterocolitica DNA SULTANA+non-probe Ql (Stl) Not detected Normal [facility] Comment on above: Performed By: #### 3 [id number], [id number], [id number], [id number], [id number], [id number] ####[facility] [address] [place] [address] Fecal WBC Lactoferrinon 06-0 Fecal WBC Lactoferrin Negative Normal Negative [facility] Comment on above: Result Comment: The semi-quantitative detection of elevated levels of fecal lactoferrin is a marker for fecal leukocytes and an indication of intestinal inflammation. Performed By: #### 3 [id number], [id number], [id number], [id number], [id number], [id number] ####[facility] [address] [place] [address] MICRO OTHER TESTSOrdered By: Francisco Bolanos on 04-15-2023 Fecal WBC Lactoferrin Negative (04/15/23 7:00 AM) Normal Negative [facility] Ambulatory Visit Summaryon 0 04-13-2023 Ambulatory Visit Summary NADIR HEREDIA :1940 Visit Date:04/13/2023 Ambulatory Visit Instructions Your Diagnosis Loose stools Fecal urgency History of colon polyps Family history of colon cancer Your Care Team Attending Physician - Nereyda Gomez CNP Primary Care Physician - Van Sung MD This Is Your Medications List Contact prescribing physician if questions or concerns NIFEdipine acyclovir apixaban (Eliquis) aspirin bifidobacterium infantis (Align 4 mg oral capsule) budesonide-formotero l (Symbicort) clonidine dicyclomine empagliflozin (Jardiance 10 mg oral tablet) ezetimibe (Zetia) ferrous sulfate furosemide (Lasix) gabapentin glimepiride hydrALAZINE labetalol magnesium oxide metoclopramide omeprazole pioglitazone (pioglitazone 30 mg Tab) potassium chloride (Klor-Con) prednisoLONE ophthalmic (Pred Mild) primidone (primidone 50 mg Tab) psyllium (Metamucil 525 mg oral capsule) sitagliptin (Januvia) tamsulosin (Flomax) tiotropium (Spiriva Respimat 1.25 mcg/inh inhalation aerosol) Procedures Performed Colonoscopy (05/11/2022), Colonoscopy. Discharge Vitals Temperature (Temporal Artery) 36.5 ?C Heart Rate (Peripheral) 70 Blood Pressure 146/70 Height 73 in Height 185 cm Weight 225.72 lb Weight 102.6 kg BMI 29.98 What to do next Scheduled Follow-Up Appointments 2022 10:40 AM EDT With: Nereyda Gomez CNP Where: [facility] Normal [facility] Auto Diffon 04-13-2023 Basophils/100 WBC (Bld) 0.9 % Normal 0.0-2.0 [facility] Comment on above: Order Comment: Order Added by Discern Expert. Performed By: #### 1 [id number], 5200488, 7916754, 0720309 ####[address] [place] [address] Basophils/Leukocytes Auto (Bld) [Pure # fraction] 0.1 E9/L Normal 0.0-0.2 [facility] Comment on above: Order Comment: Order Added by Discern Expert. Performed By: #### 1 [id number], 0524276, 3827504, 2489235 ####[address] [address] Eosinophils/100 WBC (Bld) 5.1 % Normal 0.0-8.0 [facility] Comment on above: Order Comment: Order Added by Ayanna Expert. Performed By: #### 1 7787567, 1169079, 1027043, 1093227 ####[address] [address] Eosinophils/Leukocyte s Auto (Bld) [Pure # fraction] 0.3 E9/L Normal 0.0-0.5 [facility] Comment on above: Order Comment: Order Added by Ayanna Expert. Performed By: #### 1 2677131, 1666282, 2294549, 9865468 ####[address] [address] Lymphocytes/100 WBC (Bld) 13.6 % Low 14.0-50.0 [facility] Comment on above: Order Comment: Order Added by Ayanna Expert. Performed By: #### 1 2396552, 8201513, 0668377, 4255022 ####[address] [place] [address] Lymphocytes/Leukocyte s Auto (Bld) [Pure # fraction] 0.9 E9/L Low 1.0-4.0 [facility] Comment on above: Order Comment: Order Added by Ayanna Expert. Performed By: #### 1 5621416, 1176801, 6086849, 0684152 ####[address] [address] Monocytes/100 WBC (Bld) 11.9 % Normal 4.0-14.0 [facility] Comment on above: Order Comment: Order Added by Discern Expert. Performed By: #### 1 0316776, 8863955, 2061268, 7263835 ####[address] [place] [address] Monocytes/Leukocytes Auto (Bld) [Pure # fraction] 0.8 E9/L Normal 0.2-1.0 [facility] Comment on above: Order Comment: Order Added by Discern Expert. Performed By: #### 1 2118879, 2355355, 3803732, 0541384 ####[address] [place] [address] Neutrophils/100 WBC (Bld) 68.5 % Normal 36.0-75.0 [facility] Comment on above: Order Comment: Order Added by Discern Expert. Performed By: #### 1 0489267, 8671617, 5994946, 0346382 ####[address] [address] Neutrophils/Leukocyte s Auto (Bld) [Pure # fraction] 4.6 E9/L Normal 2.0-7.5 [facility] Comment on above: Order Comment: Order Added by Discern Expert. Performed By: #### 1 9189508, 8335685, 5302096, 2118467 ####[address] [place] [address] CBC w/ Auto Diffon 3 Erythrocyte distribution width (RBC) [Ratio] 14.7 % High 10.9-14.2 [facility] Comment on above: Performed By: #### 1 7758922, 4228858, 7466954, 3432296 ####[address] [place] [address] Hematocrit (Bld) [Volume fraction] 40.3 % Normal 37.7-49.0 [facility] Comment on above: Performed By: #### 1 6317489, 2460439, 5876351, 2145969 ####[address] [address] Hemoglobin (Bld) [Mass/Vol] 13.7 g/dL Normal 13.5-17.5 [facility] Comment on above: Performed By: #### 1 2038745, 7366030, 4235127, 2910120 ####[facility] [address] [place] [address] MCH (RBC) [Entitic mass] 33.9 pg Normal 27.0-34.0 [facility] Comment on above: Performed By: #### 1 0311591, 0589653, 2105875, 9713006 ####[address] [place] [address] MCHC (RBC) [Mass/Vol] 34.0 g/dL Normal 31.4-36.0 [facility] Comment on above: Performed By: #### 1 6106957, 8169410, 9370337, 8202990 ####[address] [address] MCV (RBC) [Entitic vol] 99.8 fL Normal 80.0-100.0 [facility] Comment on above: Performed By: #### 1 8351409, 1968572, 4195575, 9964226 ####[address] [place] [address] Platelet mean volume (Bld) [Entitic vol] 9.8 fL Normal 6.4-10.8 [facility] Comment on above: Performed By: #### 1 9259909, 4865966, 9683654, 9970837 ####[address] [place] [address] Platelets (Bld) [#/Vol] 161.0 E9/L Normal 150.0-500.0 [facility] Comment on above: Performed By: #### 1 0897035, 6382506, 8445039, 2631074 ####[address] [place] [address] RBC (Bld) [#/Vol] 4.0 E12/L Low 4.3-5.9 [facility] Comment on above: Performed By: #### 1 9630102, 0290143, 9662996, 9440249 ####[facility] [address] [place] [address] WBC corrected for nucl RBC Auto (Bld) [#/Vol] 6.7 E9/L Normal 4.0-11.0 [facility] Comment on above: Performed By: #### 1 1645559, 1977005, 4850407, 7102829 ####[facility] [address] [place] [address] CHEMISTRYOrdered By: SYSTEM SYSTEM on 04-13-2023 Albumin [Mass/Vol] 3.8 g/dL Normal 3.3 - 5.0 gm/dL [facility] Albumin/Globulin [Mass ratio] 1.4 {ratio} Normal 1.1 - 2.2 [facility] ALP [Catalytic activity/Vol] 61 [iU]/d Normal 21 - 98 Int._Unit/L [facility] ALT No additional P-5'-P [Catalytic activity/Vol] 16 [iU]/d Normal 6 - 46 Int._Unit/L [facility] Anion gap [Moles/Vol] 13 mmol/L Normal 6 - 16 mEq/L [facility] AST [Catalytic activity/Vol] 18 [iU]/d Normal 5 - 43 Int._Unit/L [facility] Bilirubin [Mass/Vol] 0.5 mg/dL Normal 0.0 - 1 .1 mg/dL [facility] Calcium [Mass/Vol] 8.8 mg/dL Low 8.9 - 11. 1 mg/dL [facility] Chloride [Moles/Vol] 104 mmol/L Normal 101 - 1 11 mmol/L [facility] CO2 [Moles/Vol] 28 mmol/L Normal 21 - 31 mmol/L [facility] Creatinine [Mass/Vol] 1.8 mg/dL High 0.5 - 1.3 mg/dL [facility] GFR/1.73 sq M.predicted among non-blacks MDRD (S/P/Bld) [Vol rate/Area] 37 mL/min/1.73 m2 Low >=59mL/min/1. 73 m2 [facility] Chem S Globulin (S) [Mass/Vol] 2.8 g/dL Normal 1.4 - 4.0 gm/dL [facility]isol Glucose [Mass/Vol] 111 mg/dL Normal 55 - 199 mg/dL [facility] Potassium [Moles/Vol] 4.1 mmol/L Normal 3.5 - 5.3 mmol/L [facility] Protein [Mass/Vol] 6.6 g/dL Normal 6.0 - 7.8 gm/dL [facility] Sodium [Moles/Vol] 141 mmol/L Normal 135 - 145 mmol/L [facility] Urea nitrogen [Mass/Vol] 24 mg/dL High 5 - 21 mg/dL [facility] Urea nitrogen/Creatinine [Mass ratio] 13 mg/mg Normal 10 - 20 [facility]isol CMPon 04-13-2023 Albumin [Mass/Vol] 3.8 g/dL Normal 3.3-5.0 [facility] Comment on above: Performed By: #### 1 9631972, 6248074, 1879373, 8806998 ####[facility] [address] [place] [address] Albumin/Globulin (S) [Mass conc ratio] 1.4 Normal 1.1-2.2 [facility] Comment on above: Performed By: #### 1 3091264, 1637548, 5882115, 5084764 ####[facility] [address] [place] [address] ALP [Catalytic activity/Vol] 61 Int._Unit/L Normal 21-98 [facility] Comment on above: Performed By: #### 1 7102874, 6410259, 2697085, 4975480 ####[facility] [address] [place] [address] ALT No additional P-5'-P [Catalytic activity/Vol] 16 Int._Unit/L Normal 6-46 [facility] Comment on above: Performed By: #### 1 6705386, 1676334, 4730169, 8002759 ####[facility] [address] [place] [address] Anion gap [Moles/Vol] 13 mmol/L Normal 6-16 [facility] Comment on above: Performed By: #### 1 5492714, 7825851, 4704657, 7824968 ####[facility] [address] [place] [address] AST [Catalytic activity/Vol] 18 Int._Unit/L Normal 5-43 [facility] Comment on above: Performed By: #### 1 9234946, 9304692, 8905073, 6707867 ####[facility] [address] [place] [address] Bilirubin [Mass/Vol] 0.5 mg/dL Normal 0.0-1.1 [facility] Comment on above: Performed By: #### 1 0835219, 4308504, 5711878, 7209038 ####[facility] [address] [place] [address] Calcium [Mass/Vol] 8.8 mg/dL Low 8.9-11.1 [facility] Comment on above: Performed By: #### 1 9339396, 6593288, 3949003, 8923876 ####[facility] [address] [place] [address] Chloride [Moles/Vol] 104 mmol/L Normal 101-111 [facility] Comment on above: Performed By: #### 1 5211062, 0172393, 8804751, 0369400 ####[facility] [address] [place] [address] CO2 [Moles/Vol] 28 mmol/L Normal 21-31 [facility] Comment on above: Performed By: #### 1 1142291, 1309422, 3991521, 7576700 ####[facility] [address] [place] [address] Creatinine [Mass/Vol] 1.8 mg/dL High 0.5-1.3 [facility] Comment on above: Performed By: #### 1 0879236, 7328015, 2587696, 8517215 ####[facility] [address] [place] [address] Globulin (S) [Mass/Vol] 2.8 g/dL Normal 1.4-4.0 [facility] Comment on above: Performed By: #### 1 1607108, 9330076, 9712894, 1356941 ####[facility] [address] [place] [address] Glucose [Mass/Vol] 111 mg/dL Normal 55-199 [facility] Comment on above: Result Comment: If t his glucose result represents a fasting glucose, interpretation should refer to the following reference range: 55-99 mg/dL Performed By: #### 1 6164319, 2923909, 7729093, 5876857 ####[facility] [address] [place] [address] Potassium [Moles/Vol] 4.1 mmol/L Normal 3.5-5.3 [facility] Comment on above: Performed By: #### 1 3120353, 6199760, 6856906, 8852432 ####[facility] [address] [facility] [place] [address] Protein [Mass/Vol] 6.6 g/dL Normal 6.0-7.8 [facility] Comment on above: Performed By: #### 1 8289792, 4151999, 0987846, 2661596 ####[facility] [address] [facility] [place] [address] Sodium [Moles/Vol] 141 mmol/L Normal 135-145 [facility] Comment on above: Performed By: #### 1 4634097, 3101084, 0950451, 9610605 ####[facility] [address] [facility] [place] [address] Urea nitrogen [Mass/Vol] 24 mg/dL High 5-21 [facility] Comment on above: Performed By: #### 1 7015058, 7401564, 3887676, 9120875 ####[facility] [address] [facility] [place] [address] Urea nitrogen/Creatinine [Mass ratio] 13 No Units Normal 10-20 [facility] Comment on above: Performed By: #### 1 6663060, 5431593, 6875577, 3419841 ####[facility] [address] [place] [address] Consent for Treatmenton 03-17 Consent for Treatment [id number] #[id number]:127 Normal [facility] Gastroenterology Office/Clin ic Noteon 04-13-2023 Gastroenterology Office/Clinic Note Chief Complaint Constipation and diarrhea. HPI Staff Patient is a 83 year old male that c/o constipation and diarrhea. Patient had episode Wednesday and is still having loose stool. History of Present Illness Patient is a 83-year-old male who presents for further evaluation of loose stools. Presents with his today. Patient was previously evaluated 05/2022 and has history of colon polyps. Patient with family history of colon cancer?patient's mother. Patient with PMH of asthma, DM, type 2, atrial fibrillation?managed by patient's PCP. Colonoscopy completed 05/11/2022 revealed tubular adenoma removed from ascending colon, tubular adenoma removed from rectum, diverticulosis, hemorrhoids- Dr. Mendez recommended for patient to have repeat colonoscopy in 5 years (2026). Family history of colon polyps: Denies. Personal history of colon cancer: Denies. Personal history of colon polyps: yes, see above. Takes eliquis daily. During today's visit, patient reports he has been experiencing change in bowel habits over the last 2 weeks. He reports having difficulty having a BM 2 weeks ago, then 1 week later, he started having loose stools. Over the last last week with loose stools, he has been having 1-2 BMs daily with fecal urgency. Denies recent change in medications, sick contacts, fevers/chills, nausea/vomiting, black/bloody stools, and denies unintentional weight loss. Review of Systems PHQ Score Initial Depression Screen Score: 0 ROS - Provider Constitutional: no fever, no chills. Skin: no Jaundice. ENMT: Denies dysphagia and heartburn. Respiratory: no shortness of breath. Cardiovascular: no chest pain. Gastrointestinal: no nausea, no vomiting, yes loose stools, no GI bleeding. Physical Exam Vitals & Measurements T: 36.5 ?C(Temporal Artery) HR: 70(Peripheral) BP: 146/70 HT: 73 in HT: 185 cm WT: 102.6 kg WT: 225.72 lb BMI: 29.98 General: Well developed, well nourished, in no acute distress Head: Normocephalic/atraum atic Lungs: Normal respiratory effort and clear to auscultation Cardio: Irregular rhythm, Grade I-II/ systolic heart murmur- follows with PCP regarding, normal S1 and S2, no rub Abdomen: Soft, non-distended, non-tender. Normoactive bowel sounds present in all 4 abdominal quadrants, bilaterally. Mental Status: Alert and oriented x3. Normal mood and affect Assessment/Plan BP elevated today at 146/70- BP managed by patient's PCP. 1. Loose stools (R19.5: Other fecal abnormalities) Reports change in bowel habits over the last 2 weeks. Over the last week, is having loose stools with fecal urgency. Colonoscopy completed 05/11/2022 revealed tubular adenoma removed from ascending colon, tubular adenoma removed from rectum, diverticulosis, hemorrhoids- Dr. Mendez recommended for patient to have repeat colonoscopy in 5 years (2026). Discussed colonoscopy to further evaluate- declines colonoscopy. Ordered CBC/CMP. Ordered stool testing to evaluate for infectious process. Ordered: CBC w/ Auto Diff Clostridium Difficile PCR Comprehensive Metabolic Panel Enteric Panel by PCR Fecal WBC Lactoferrin Giardia lamblia, Direct Detection EIA O & P Exam, Routine 2. Fecal urgency (R15.2: Fecal urgency) Reports change in bowel habits over the last 2 weeks. Over the last week, is having loose stools with fecal urgency. Colonoscopy completed 05/11/2022 revealed tubular adenoma removed from ascending colon, tubular adenoma removed from rectum, diverticulosis, hemorrhoids- Dr. Mendez recommended for patient to have repeat colonoscopy in 5 years (2026). Discussed colonoscopy to further evaluate- declines colonoscopy. Ordered CBC/CMP. Ordered stool testing to evaluate for infectious process. 3. History of colon polyps (Z86.010: Personal history of colonic polyps) Colonoscopy completed 05/11/2022 revealed tubular adenoma removed from ascending colon, tubular adenoma removed from rectum, diverticulosis, hemorrhoids- Dr. Mendez recommended for patient to have repeat colonoscopy in 5 years (2026). 4. Family history of colon cancer (Z80.0: Family history of malignant neoplasm of digestive organs) FH colon cancer- patient's mother. Colonoscopy completed 05/11/2022 revealed tubular adenoma removed from ascending colon, tubular adenoma removed from rectum, diverticulosis, hemorrhoids- Dr. Mendez recommended for patient to have repeat colonoscopy in 5 years (2026). Follow-up With When Contact Information Nereyda Gmoez CNP Within 1 month Additional Instructions: Patient Education Colonoscopy, Adult Problem List/Past Medical History Ongoing Asthma Chronic constipation with overflow Colon polyps Diabetes Diverticulosis Family history of colon cancer Fecal urgency Hemorrhoids History of colon polyps Loose stools Historical No qualifying data Procedure/Surgical History Colonoscopy (05/11/2022), Colonoscopy. Medications acyclovir, 400 mg, Oral, BID Align 4 mg oral capsule, 4 mg= (more content not included)... Normal [facility] Comment on above: Result Comment: Elec tronically Signed By: Nereyda Gomez CNP\.br\Date and Time Signed: 04/13/23 14:37 EDT HEMATOLOGYOrdered By: SYSTEM SYSTEM on 04-13-2023 Basophils/100 WBC (Bld) 0.9 % Normal 0.0 - 2.0 % [facility]eAutoSS Basophils/Leukocytes Auto (Bld) [Pure # fraction] 0.1 E9/L Normal 0.0 - 0.2 E9/L [facility]eAutoSS Eosinophils/100 WBC (Bld) 5.1 % Normal 0.0 - 8.0 % [facility]eAutoSS Eosinophils/Leukocyte s Auto (Bld) [Pure # fraction] 0.3 E9/L Normal 0.0 - 0.5 E9/L [facility]eAuto[facility] Lymphocytes/100 WBC (Bld) 13.6 % Low 14.0 - 50.0 % [facility] Lymphocytes/Leukocyte s Auto (Bld) [Pure # fraction] 0.9 E9/L Low 1.0 - 4.0 E9/L [facility]eAuto[facility] Monocytes/100 WBC (Bld) 11.9 % Normal 4.0 - 14.0 % [facility]Auto[facility] Monocytes/Leukocytes Auto (Bld) [Pure # fraction] 0.8 E9/L Normal 0.2 - 1.0 E9/L [facility] Neutrophils/100 WBC (Bld) 68.5 % Normal 36.0 - 75.0 % [facility] Neutrophils/Leukocyte s Auto (Bld) [Pure # fraction] 4.6 E9/L Normal 2.0 - 7.5 E9/L [facility]eAutoSS HEMATOLOGYOrdered By: Gauri Scott on 04-13-2023 Erythrocyte distribution width (RBC) [Ratio] 14.7 % High 10.9 - 14.2 % [facility] Hematocrit (Bld) [Volume fraction] 40.3 % Normal 37.7 - 49.0 % [facility] Hemoglobin (Bld) [Mass/Vol] 13.7 g/dL Normal 13.5 - 17.5 gm/dL [facility] MCH (RBC) [Entitic mass] 33.9 pg Normal 27.0 - 34.0 pg [facility] MCHC (RBC) [Mass/Vol] 34.0 g/dL Normal 31.4 - 36.0 gm/dL [facility] MCV (RBC) [Entitic vol] 99.8 fL Normal 80.0 - 100.0 fL [facility] Platelet mean volume (Bld) [Entitic vol] 9.8 fL Normal 6.4 - 10.8 fL [facility] Platelets (Bld) [#/Vol] 161.0 E9/L Normal 150.0 - 500.0 E9/L [facility] RBC (Bld) [#/Vol] 4.0 E12/L Low 4.3 - 5.9 E12/L [facility] WBC corrected for nucl RBC Auto (Bld) [#/Vol] 6.7 E9/L Normal 4.0 - 11.0 E9/L [facility] Orders Onlyon 04-13-2023 Orders Only [id number] Nadir Heredia Joy 1940 M Date Provider Department Center 04/13/2023 [facility] LISA Comprehensiv Family History Problem Relation Age of Onset Coronary artery disease Father Family Status - Relation Status Age at Father Normal [facility] Orders Only [id number] Nadir Heredia Joy 1940 M Date Provider Department Center 04/13/2023 LU [facility] INT MED Comprehensiv Family History Problem Relation Age of Onset Coronary artery disease Father Family Status - Relation Status Age at Father Normal [facility] eGFRon 04-13-2023 GFR/1.73 sq M.predicted among non-blacks MDRD (S/P/Bld) [Vol rate/Area] 37 mL/min/1.73 m2 Low >=59 [facility] Comment on above: Order Comment: Order added by Discern Expert. Result Comment: Senior Staff Consultant rd kidney disease could be indicated at eGFR's of less than 60 mL/min/1.73m2. Kidney failure is indicated at less than 15 mL/min/1.73m2. Performed By: #### 1 [id number], 4478951, 1494208, 2845090 ####[facility] [address] [place] [address] 36on 04-08-2023 36 Patient contacted [facility] Telephoneon 04-08-2023 Telephone [id number] Nadir Heredia 1940 M Date Provider Department Center 04/08/2023 RUTHIE OW[facility] NEPHRO Comprehensiv Family History Problem Relation Age of Onset Coronary artery disease Father Family Status - Relation Status Age at Father Normal [facility] Office Visiton 04-07-2023 Follow-up visit [id number] rileyNadir Joy 1940 M Date Provider Department Center 04/07/2023 RUTHIE OWEN [facility] NEPHRO Comprehensiv Family History Problem Relation Age of Onset Coronary artery disease Father Family Status - Relation Status Age at Father Level of Service:77006 IN OFFICE/OUTPATIENT ESTABLISHED MOD MDM 30-39 MIN Reason for Visit and Comments: Follow-up [023563] Normal [facility] ALBUMINon 03-24-2023 Albumin [Mass/Vol] 3.3 g/dL Critically low 3.4-5.0 [facility] Comment on above: Performed By: #### M ERICK Faith PHOS #### [facility] [address] [address] [address] David Magana GLYCOHEMOGLOBIN A1Con 2022 ADA RECOMMENDATION SEE BELOW Normal [facility] Comment on above: Result Comment: ADA RECOMMENDED LIMIT 4.0 - 6.0 ADA THERAPEUTIC TARGET < 7.0 ACTION SUGGESTED > 7.0 Performed By: #### A 1C #### [facility] [address] [place] [address] Dr. David Magana Glucose [Mass/Vol] 108 mg/dL Normal [facility] Comment on above: Performed By: #### A 1C #### [facility] [address] [place] [address] Dr. David Magana HbA1c (Bld) [Mass fraction] 5.4 % Normal 4.5-6.2 [facility] Comment on above: Performed By: #### A 1C #### [facility] [address] [place] [address] Dr. David Magana PHOSPHORUSon 03-24-2023 Phosphate [Mass/Vol] 3.6 mg/dL Normal 2.6-4.7 [facility] Comment on above: Performed By: #### M ERICK Faith, PHOS #### [facility] [address] [place] [address] Dr. David Magana PROF CHEM 8 (BAS METB)on Anion gap [Moles/Vol] 11.6 mmol/L Normal [facility] Comment on above: Performed By: #### M Marcell BMP, PHOS #### [facility] [address] [place] [address] Dr. David Magana Calcium [Mass/Vol] 8.9 mg/dL Normal 8.5-10.1 [facility] Comment on above: Performed By: #### M Marcell BMP, PHOS #### [facility] [address] [place] [address] Dr. David Magana Chloride [Moles/Vol] 107 mmol/L Normal 98-107 [facility] Comment on above: Performed By: #### M Marcell BMP, PHOS #### [facility] [address] [place] [address] Dr. David Magana CO2 [Moles/Vol] 30.8 mmol/L Normal 21.0-32.0 [facility] Comment on above: Performed By: #### M G, BMP, PHOS #### [facility] [address] [address] [address] David Magana Creatinine [Mass/Vol] 1.67 mg/dL Critically high 0.70-1.30 [facility] Comment on above: Performed By: #### M G, BMP, PHOS #### [facility] [address] [address] [address] David Magana EGFR-AF NEW ZEALANDER 48 mL/min/1.73m2 Critically low >=60 [facility] Comment on above: Performed By: #### M G, BMP, PHOS #### [facility] [address] [place] [address] Dr. David Magana EGFR-NON AF [place]ALANDER 39 mL/min/1.73m2 Critically low >=60 [facility] Comment on above: Performed By: #### M Marcell BMP, PHOS #### [facility] [address] [place] [address] Dr. David Magana Glucose [Mass/Vol] 128 mg/dL Critically high 74-106 [facility] Comment on above: Performed By: #### M Marcell BMP, PHOS #### [facility] [address] [place] [address] Dr. David Magana Potassium [Moles/Vol] 4.4 mmol/L Normal 3.5-5.1 [facility] Comment on above: Performed By: #### M Marcell BMP, PHOS #### [facility] [address] [address] [address] David Magana Sodium [Moles/Vol] 145 mmol/L Normal 136-145 [facility] Comment on above: Performed By: #### M Marcell BMP, PHOS #### [facility] [address] [place] [address] Dr. David Magana Urea nitrogen [Mass/Vol] 25.0 mg/dL Critically high 7.0-18.0 [facility] Comment on above: Performed By: #### M Marcell, BMP, PHOS #### [facility] [address] [place], [place] [id number] Dr. David Magana Urea nitrogen/Creatinine [Mass ratio] 15.0 mg/mg Normal [facility] Comment on above: Performed By: #### M ERICK Faith PHOS #### [facility] [address] [place] [address] Dr. David Magana VITAMIN D 25 OHon 03-24-2023 VIT D 25-OH 11.6 ng/mL Normal [facility] Comment on above: Performed By: #### C BC #### [facility] [address] [address] [address] David Magana VIT D RANGES SEE BELOW [facility] Comment on above: Result Comment: <20 ng/mL Vit D deficient 20 - <30 ng/mL Vit D insufficient 30 - 100 ng/mL Vit D sufficient >100 ng/mL Potential Toxicity Performed By: #### C BC #### [facility] [address] [address] [address] David Magana 36on 03-08-2023 36 Orders have been confirmed. Normal [facility] Physician Referralon 023 Physician Referral [id number] Normal [facility] 36on 03-05-2023 36 Patient's , Shanna, would like to confirm the blood work orders needed for patient's next visit with Dr. Linda. Neonatologist let her know that there are orders in the chart, but that a message would be forwarded to the appropriate green party to confirm her question. She can be reached at [phone] or [phone]. Normal [facility] Telephoneon 03-05-2023 Telephone [id number] Nadir Heredia 1940 M Date Provider Department Center 03/05/2023 [facility] NEPHRO Comprehensiv Family History Problem Relation Age of Onset Coronary artery disease Father Family Status - Relation Status Age at Father Reason for Visit and Comments: Clarification On Lab Orders [Other] Normal [facility] CBC AUTO DIFFon 02-27-2023 BASO # 0.0 103/ul Normal 0.0-0.1 [facility] Comment on above: Performed By: #### M ERICK Faith, PHOS #### [facility] [address] [place] [address] Dr. David Magana Basophils/100 WBC (Bld) 0.5 % Normal 0.2-2.0 [facility] Comment on above: Performed By: #### M ERICK Faith, PHOS #### [facility] [address] [place] [address] Dr. David Magana EO # 0.7 103/ul Normal 0.0-0.7 [facility] Comment on above: Performed By: #### M ERICK Faith, PHOS #### [facility] [address] [place] [address] Dr. David Magana Eosinophils/100 WBC (Bld) 9.3 % Critically high 0.9-7.0 [facility] Comment on above: Performed By: #### ERICK Jacques, PHOS #### [facility] [address] [place] [address] Dr. David Magana Erythrocyte distribution width (RBC) [Ratio] 14.6 % Normal 11.0-15.0 [facility] Comment on above: Performed By: #### ERICK Jacques, PHOS #### [facility] [address] [place] [address] Dr. David Magana Hematocrit (Bld) [Volume fraction] 41.5 % Critically low 42.0-54.0 [facility] Comment on above: Performed By: #### ERICK Jacques, PHOS #### [facility] [address] [place] [address] Dr. David Magana Hemoglobin (Bld) [Mass/Vol] 13.9 g/dL Critically low 14.0-18.0 [facility] Comment on above: Performed By: #### ERICK Jacques, PHOS #### [facility] [address] [place] [address] Dr. David Magana IG # 0.02 10e3/ul Normal 0.00-0.03 [facility] Comment on above: Performed By: #### M ERICK Faith, PHOS #### [facility] [address] [address] [address] David Magana IG % 0.3 % Normal 0.0-0.5 [facility] Comment on above: Performed By: #### M G, BMP, PHOS #### [facility] [address] [address] [address] David Magana LYMPH # 1.0 103/ul Critically low 1.2-3.8 [facility] Comment on above: Performed By: #### M G, BMP, PHOS #### [facility] [address] [place] [address] Dr. David Magana Lymphocytes/100 WBC (Bld) 13.0 % Critically low 20.5-60.0 [facility] Comment on above: Performed By: #### M G, BMP, PHOS #### [facility] [address] [place] [address] Dr. David Magana MANUAL DIFF REQ NO Normal [facility] Comment on above: Performed By: #### M G, BMP, PHOS #### [facility] [address] [place] [address] Dr. David Magana MCH (RBC) [Entitic mass] 33.5 pg Normal 25.9-34.0 [facility] Comment on above: Performed By: #### M G, BMP, PHOS #### [facility] [address] [place] [address] Dr. David Magana MCHC (RBC) [Mass/Vol] 33.5 g/dL Normal 29.9-35.2 [facility] Comment on above: Performed By: #### M G, BMP, PHOS #### [facility] [address] [address] [address] David Magana MCV (RBC) [Entitic vol] 100.0 fL Critically high 80.0-94.0 [facility] Comment on above: Performed By: #### M G, BMP, PHOS #### [facility] [address] [address] [address] David Magana MONO # 0.8 103/ul Normal 0.3-0.8 [facility] Comment on above: Performed By: #### M ERICK Faith, PHOS #### [facility] [address] [place] [address] Dr. David Magana Monocytes/100 WBC (Bld) 10.1 % Normal 1.7-12.0 [facility] Comment on above: Performed By: #### ERICK Jacques, PHOS #### [facility] [address] [place] [address] Dr. David Magana NEUT # 5.0 103/ul Normal 1.4-6.5 [facility] Comment on above: Performed By: #### ERICK Jacques, PHOS #### [facility] [address] [place] [address] Dr. David Magana Neutrophils/100 WBC (Bld) 66.8 % Normal 43.0-75.0 [facility] Comment on above: Performed By: #### ERICK Jacques, PHOS #### [facility] [address] [place] [address] Dr. David Magana Platelet mean volume (Bld) [Entitic vol] 11.2 fL Normal 9.5-13.5 [facility] Comment on above: Performed By: #### ERICK Jacques, PHOS #### [facility] [address] [place] [address] Dr. David Magana PLT 187 103/ul Normal 150-450 [facility] Comment on above: Performed By: #### ERICK Jacques, PHOS #### [facility] [address] [place] [address] Dr. David Magana RBC 4.15 106/ul Critically low 4.70-6.10 [facility] Comment on above: Performed By: #### ERICK Jacques, PHOS #### [facility] [address] [place] [address] Dr. David Magana WBC 7.5 103/ul Normal 4.0-11.0 [facility] Comment on above: Performed By: #### ERICK Jacques, PHOS #### [facility] [address] [place] [address] Dr. David Magana PROF 14(COMP METB)on 023 Albumin [Mass/Vol] 3.5 g/dL Normal 3.4-5.0 [facility] Comment on above: Performed By: #### A 1C #### [facility] [address] [place] [address] Dr. David Magana Albumin/Globulin [Mass ratio] 1.1 {ratio} Normal [facility] Comment on above: Performed By: #### A 1C #### [facility] [address] [place] [address] Dr. David Magana ALP [Catalytic activity/Vol] 76 U/L Normal 46-116 [facility] Comment on above: Performed By: #### A 1C #### [facility] [address] [place] [address] Dr. David Magana ALT [Catalytic activity/Vol] 23 U/L Normal 16-63 [facility] Comment on above: Performed By: #### A 1C #### [facility] [address] [place] [address] Dr. David Magana Anion gap [Moles/Vol] 13.1 mmol/L Normal [facility] Comment on above: Performed By: #### A 1C #### [facility] [address] [place] [address] Dr. David Magana AST [Catalytic activity/Vol] 17 U/L Normal 15-37 [facility] Comment on above: Performed By: #### A 1C #### [facility] [address] [place] [address] Dr. David Magana Bilirubin [Mass/Vol] 0.7 mg/dL Normal 0.2-1.0 [facility] Comment on above: Performed By: #### A 1C #### [facility] [address] [place] [address] Dr. David Magana Calcium [Mass/Vol] 9.0 mg/dL Normal 8.5-10.1 [facility] Comment on above: Performed By: #### A 1C #### [facility] [address] [place] [address] Dr. David Magana Chloride [Moles/Vol] 105 mmol/L Normal 98-107 [facility] Comment on above: Performed By: #### A 1C #### [facility] [address] [address] [address] David Magana CO2 [Moles/Vol] 29.0 mmol/L Normal 21.0-32.0 [facility] Comment on above: Performed By: #### A 1C #### [facility] [address] [address] [address] David Magana Creatinine [Mass/Vol] 1.77 mg/dL Critically high 0.70-1.30 [facility] Comment on above: Performed By: #### A 1C #### [facility] [address] [place] [address] Dr. David Magana EGFR-AF NEW ZEALANDER 45 mL/min/1.73m2 Critically low >=60 [facility] Comment on above: Performed By: #### A 1C #### [facility] [address] [place] [address] Dr. David Magana EGFR-NON AF NEW ZEALANDER 37 mL/min/1.73m2 Critically low >=60 [facility] Comment on above: Performed By: #### A 1C #### [facility] [address] [place] [address] Dr. David Magana Globulin (S) [Mass/Vol] 3.3 g/dL Normal [facility] Comment on above: Performed By: #### A 1C #### [facility] [address] [address] [address] David Magana Glucose [Mass/Vol] 135 mg/dL Critically high 74-106 [facility] Comment on above: Performed By: #### A 1C #### [facility] [address] [place] [address] Dr. David Magana Potassium [Moles/Vol] 4.1 mmol/L Normal 3.5-5.1 [facility] Comment on above: Performed By: #### A 1C #### [facility] [address] [place] [address] Dr. David Magana Protein [Mass/Vol] 6.8 g/dL Normal 6.4-8.2 [facility] Comment on above: Performed By: #### A 1C #### [facility] [address] [place] [address] Dr. David Magana Sodium [Moles/Vol] 143 mmol/L Normal 136-145 [facility] Comment on above: Performed By: #### A 1C #### [facility] [address] [address] [address] David Magana Urea nitrogen [Mass/Vol] 31.0 mg/dL Critically high 7.0-18.0 [facility] Comment on above: Performed By: #### A 1C #### [facility] [address] [place] [address] Dr. David Magana Urea nitrogen/Creatinine [Mass ratio] 17.5 mg/mg Normal [facility] Comment on above: Performed By: #### A 1C #### [facility] [address] [place] [address] Dr. David Magana PROTIMEon 02-27-2023 INR Coag (PPP) [Relative time] 0.99 {INR} Normal [facility] Comment on above: Performed By: #### A 1C #### [facility] [address] [place] [address] Dr. David Magana INR GUIDELINES SEE BELOW Normal [facility] Comment on above: Result Comment: IDANIA RED INR: 2.0 - 3.0 CONDITIONS NOT LISTED BELOW 2.5 - 3.5 FOR PROSTHETIC HEART VALVE REPLACEMENT 2.5 - 3.5 RECURRENT THROMBOSIS Performed By: #### A 1C #### [facility] [address] [place] [address] Dr. David Magana PT Coag (PPP) [Time] 10.5 s Normal 9.0-11.6 [facility] Comment on above: Performed By: #### A 1C #### [facility] [address] [place] [address] Dr. David Magana PTTon 02-27-2023 aPTT Coag (Bld) [Time] 33.0 s Normal 22.3-36.2 [facility] Comment on above: Performed By: #### P OCGLUC #### [facility] [address] [address] [address] David Magana 36on 01-08-2023 36 Last visit: 10/05/2022 ([place]) Last labs: 12/2022 Last rx & refills: historical, unknown Next visit scheduled: 6 months Rx approved/denied: approved Notes: 90x3 refill approved, per protocol. Normal [facility] Office Visiton 01-06-2023 Follow-up visit [id number] margonereidaNadir Joy 1940 M Date Provider Department Center 01/06/2023 [facility] NEPHRO Comprehensiv Family History Problem Relation Age of Onset Coronary artery disease Father Family Status - Relation Status Age at Father Level of Service:64911 IN OFFICE/OUTPATIENT ESTABLISHED MOD MDM 30-39 MIN Reason for Visit and Comments: Follow-up [823560] Normal [facility] ALBUMINon 12-28-2022 Albumin [Mass/Vol] 3.6 g/dL Normal 3.4-5.0 [facility] Comment on above: Performed By: #### C BC #### [facility] [address] [address] [address] David Magana GLYCOHEMOGLOBIN A1Con 2022 ADA RECOMMENDATION SEE BELOW Normal [facility] Comment on above: Result Comment: ADA RECOMMENDED LIMIT 4.0 - 6.0 ADA THERAPEUTIC TARGET < 7.0 ACTION SUGGESTED > 7.0 Performed By: #### P OCGLUC #### [facility] [address] [address] [address] David Magana Glucose [Mass/Vol] 140 mg/dL Normal [facility] Comment on above: Performed By: #### P OCGLUC #### [facility] [address] [address] [address] David Magana HbA1c (Bld) [Mass fraction] 6.5 % Critically high 4.5-6.2 [facility] Comment on above: Performed By: #### P OCGLUC #### [facility] [address] [address] [address] David Magana MAGNESIUMon 12-28-2022 Magnesium [Mass/Vol] 2.3 mg/dL Normal 1.8-2.4 [facility] Comment on above: Performed By: #### P OCGLUC #### [facility] [address] [address] [address] David Magana PROF CHEM 8 (BAS METB)on Anion gap [Moles/Vol] 13.2 mmol/L Normal [facility] Comment on above: Performed By: #### P OCGLUC #### [facility] [address] [address] [address] David Magana Calcium [Mass/Vol] 9.0 mg/dL Normal 8.5-10.1 [facility] Comment on above: Performed By: #### P OCGLUC #### [facility] [address] [place] [address] Dr. David Magana Chloride [Moles/Vol] 105 mmol/L Normal 98-107 [facility] Comment on above: Performed By: #### P OCGLUC #### [facility] [address] [address] [address] David Magana CO2 [Moles/Vol] 28.9 mmol/L Normal 21.0-32.0 [facility] Comment on above: Performed By: #### P OCGLUC #### [facility] [address] [address] [address] David Magana Creatinine [Mass/Vol] 1.66 mg/dL Critically high 0.70-1.30 [facility] Comment on above: Performed By: #### P OCGLUC #### [facility] [address] [address] [address] David Magana EGFR-AF NEW ZEALANDER 48 mL/min/1.73m2 Critically low >=60 [facility] Comment on above: Performed By: #### P OCGLUC #### [facility] [address] [place] [address] Dr. David Magana EGFR-NON AF NEW ZEALANDER 40 mL/min/1.73m2 Critically low >=60 [facility] Comment on above: Performed By: #### P OCGLUC #### [facility] [address] [address] [address] David Magana Glucose [Mass/Vol] 123 mg/dL Critically high 74-106 [facility] Comment on above: Performed By: #### P OCGLUC #### [facility] [address] [address] [address] David Magana Potassium [Moles/Vol] 4.1 mmol/L Normal 3.5-5.1 [facility] Comment on above: Performed By: #### P OCGLUC #### [facility] [address] [address] [address] David Magana Sodium [Moles/Vol] 143 mmol/L Normal 136-145 [facility] Comment on above: Performed By: #### P OCGLUC #### [facility] [address] [address] [address] David Magana Urea nitrogen [Mass/Vol] 29.0 mg/dL Critically high 7.0-18.0 [facility] Comment on above: Performed By: #### P OCGLUC #### [facility] [address] [address] [address] David Magana Urea nitrogen/Creatinine [Mass ratio] 17.5 mg/mg Normal [facility] Comment on above: Performed By: #### P OCGLUC #### [facility] [address] [address] [address] David Magana URINE T PROTEIN CREAT RATIOo n 12-28-2022 UR TOTAL PROTEIN <6.0 Normal <=12.0 [facility] Comment on above: Performed By: #### M G, BMP, PHOS #### [facility] [address] [address] [address] David Magana URINE CREAT 41.21 mg/dL Normal 20.00-300.00 [facility] Comment on above: Performed By: #### M G, BMP, PHOS #### [facility] [address] [address] [address] David Magana ALBUMINon 01-02-2023 Albumin [Mass/Vol] 3.3 g/dL Critically low 3.4-5.0 [facility] Comment on above: Performed By: #### C BC #### [facility] [address] [place] [address] Dr. David Magana CREATININE URINEon URINE CREAT 19.69 mg/dL Critically low 20.00-300.00 [facility] Comment on above: Performed By: #### M ERICK Faith, PHOS #### [facility] [address] [place] [address] Dr. David Magana HEMOGLOBINon 11-16-2022 Hemoglobin (Bld) [Mass/Vol] 14.9 g/dL Normal 14.0-18.0 [facility] Comment on above: Performed By: #### M ERICK Faith, PHOS #### [facility] [address] [place] [address] Dr. David Magana MAGNESIUMon 11-16-2022 Magnesium [Mass/Vol] 2.2 mg/dL Normal 1.8-2.4 [facility] Comment on above: Performed By: #### C BC #### [facility] [address] [place] [address] Dr. David Magana PHOSPHORUSon 11-16-2022 Phosphate [Mass/Vol] 3.9 mg/dL Normal 2.6-4.7 [facility] Comment on above: Performed By: #### C BC #### [facility] [address] [place] [address] Dr. David Magana PROF CHEM 8 (BAS METB)on Anion gap [Moles/Vol] 11.9 mmol/L Normal [facility] Comment on above: Performed By: #### C BC #### [facility] [address] [place] [address] Dr. David Magana Calcium [Mass/Vol] 8.8 mg/dL Normal 8.5-10.1 [facility] Comment on above: Performed By: #### C BC #### [facility] [address] [place] [address] Dr. David Magana Chloride [Moles/Vol] 104 mmol/L Normal 98-107 [facility] Comment on above: Performed By: #### C BC #### [facility] [address] [place] [address] Dr. David Magana CO2 [Moles/Vol] 27.4 mmol/L Normal 21.0-32.0 [facility] Comment on above: Performed By: #### C BC #### [facility] [address] [address] [address] David Magana Creatinine [Mass/Vol] 1.68 mg/dL Critically high 0.70-1.30 [facility] Comment on above: Performed By: #### C BC #### [facility] [address] [place] [address] Dr. David Magana EGFR-AF NEW ZEALANDER 48 mL/min/1.73m2 Critically low >=60 [facility] Comment on above: Performed By: #### C BC #### [facility] [address] [place] [address] Dr. David Magana EGFR-NON AF NEW ZEALANDER 39 mL/min/1.73m2 Critically low >=60 [facility] Comment on above: Performed By: #### C BC #### [facility] [address] [place] [address] Dr. David Magana Glucose [Mass/Vol] 212 mg/dL Critically high 74-106 [facility] Comment on above: Performed By: #### C BC #### [facility] [address] [place] [address] Dr. David Magana Potassium [Moles/Vol] 4.3 mmol/L Normal 3.5-5.1 [facility] Comment on above: Performed By: #### C BC #### [facility] [address] [place] [address] Dr. David Magana Sodium [Moles/Vol] 139 mmol/L Normal 136-145 [facility] Comment on above: Performed By: #### C BC #### [facility] [address] [address] [address] David Magana Urea nitrogen [Mass/Vol] 25.0 mg/dL Critically high 7.0-18.0 [facility] Comment on above: Performed By: #### C BC #### [facility] [address] [place] [address] Dr. David Magana Urea nitrogen/Creatinine [Mass ratio] 14.9 mg/mg Normal [facility] Comment on above: Performed By: #### C BC #### [facility] [address] [place] [address] Dr. David Magana PROTEIN RAND URINEon 023 UR PROT <5.0 Normal <=11.9 [facility] Comment on above: Performed By: #### M ERICK Faith PHOS #### [facility] [address] [place] [address] Dr. David Magana US CHANI DOP LEG BILon 022 US CHANI DOP LEG PARIS EXAMINATION: US CHANI DOP LEG PARIS HISTORY: Edema ; bilateral leg swelling COMPARISON: Ultrasound venous Doppler leg right 07/18/2022 FINDINGS: REGION: Bilateral lower extremities THROMBI: None. COMPRESSIBILITY: Normal compressibility. FLOW: Normal waveform and antegrade flow between 5 and 20 cm/s. OTHER: Subcutaneous edema bilaterally. IMPRESSION: 1. No deep vein thrombus within the right or left lower extremity. 2. Subcutaneous edema bilaterally. Electronically authenticated by: CLOVER PEREZ Date: 2022-11-02 16:21 Normal [facility] BNPon 07-22-2022 Natriuretic peptide B (Bld) [Mass/Vol] 2143.0 pg/mL Critically high <=1,800.0 [facility] Comment on above: Performed By: #### ERICK Jacques PHOS #### [facility] [address] [place] [address] Dr. David Magana CBC AUTO DIFFon 07-22-2022 BASO # 0.0 103/ul Normal 0.0-0.1 [facility] Comment on above: Performed By: #### A 1C #### [facility] [address] [place] [address] Dr. David Magana Basophils/100 WBC (Bld) 0.3 % Normal 0.2-2.0 [facility] Comment on above: Performed By: #### A 1C #### [facility] [address] [place] [address] Dr. David Magana EO # 0.3 103/ul Normal 0.0-0.7 [facility] Comment on above: Performed By: #### A 1C #### [facility] [address] [place] [address] Dr. David Magana Eosinophils/100 WBC (Bld) 2.4 % Normal 0.9-7.0 [facility] Comment on above: Performed By: #### A 1C #### [facility] [address] [place] [address] Dr. David Magana Erythrocyte distribution width (RBC) [Ratio] 13.4 % Normal 11.0-15.0 [facility] Comment on above: Performed By: #### A 1C #### [facility] [address] [place] [address] Dr. David Magana Hematocrit (Bld) [Volume fraction] 42.7 % Normal 42.0-54.0 [facility] Comment on above: Performed By: #### A 1C #### [facility] [address] [place] [address] Dr. David Magana Hemoglobin (Bld) [Mass/Vol] 14.2 g/dL Normal 14.0-18.0 [facility] Comment on above: Performed By: #### A 1C #### [facility] [address] [place] [address] Dr. David Magana IG # 0.18 10e3/ul Critically high 0.00-0.03 [facility] Comment on above: Performed By: #### A 1C #### [facility] [address] [place] [address] Dr. David Magana IG % 1.6 % Critically high 0.0-0.5 [facility] Comment on above: Performed By: #### A 1C #### [facility] [address] [place] [address] Dr. David Magana LYMPH # 0.9 103/ul Critically low 1.2-3.8 [facility] Comment on above: Performed By: #### A 1C #### [facility] [address] [place] [address] Dr. David Magana Lymphocytes/100 WBC (Bld) 8.1 % Critically low 20.5-60.0 [facility] Comment on above: Performed By: #### A 1C #### [facility] [address] [place] [address] Dr. David Magana MANUAL DIFF REQ NO Normal [facility] Comment on above: Performed By: #### A 1C #### [facility] [address] [place] [address] Dr. David Magana MCH (RBC) [Entitic mass] 33.3 pg Normal 25.9-34.0 [facility] [facility] Comment on above: Performed By: #### A 1C #### [facility] [address] [place] [address] Dr. David Magana MCHC (RBC) [Mass/Vol] 33.3 g/dL Normal 29.9-35.2 [facility] Comment on above: Performed By: #### A 1C #### [facility] [address] [place] [address] Dr. David Magana MCV (RBC) [Entitic vol] 100.2 fL Critically high 80.0-94.0 [facility] Comment on above: Performed By: #### A 1C #### [facility] [address] [place] [address] Dr. David Magana MONO # 1.2 103/ul Critically high 0.3-0.8 [facility] Comment on above: Performed By: #### A 1C #### [facility] [address] [place] [address] Dr. David Magana Monocytes/100 WBC (Bld) 10.5 % Normal 1.7-12.0 [facility] Comment on above: Performed By: #### A 1C #### [facility] [address] [place] [address] Dr. David Magana NEUT # 8.9 103/ul Critically high 1.4-6.5 [facility] Comment on above: Performed By: #### A 1C #### [facility] [address] [address] [address] David Magana Neutrophils/100 WBC (Bld) 77.1 % Critically high 43.0-75.0 [facility] Comment on above: Performed By: #### A 1C #### [facility] [address] [address] [address] David Magana Platelet mean volume (Bld) [Entitic vol] 11.3 fL Normal 9.5-13.5 [facility] Comment on above: Performed By: #### A 1C #### [facility] [address] [address] [address] David Magana PLT 175 103/ul Normal 150-450 [facility] Comment on above: Performed By: #### A 1C #### [facility] [address] [place] [address] Dr. David Magana RBC 4.26 106/ul Critically low 4.70-6.10 [facility] Comment on above: Performed By: #### A 1C #### [facility] [address] [place] [address] Dr. David Magana WBC 11.5 103/ul Critically high 4.0-11.0 [facility] Comment on above: Performed By: #### A 1C #### [facility] [address] [place] [address] Dr. David Magana PROF 14(COMP METB)on 022 Albumin [Mass/Vol] 2.6 g/dL Critically low 3.4-5.0 [facility] Comment on above: Performed By: #### M ERICK Faith, PHOS #### [facility] [address] [place] [address] Dr. David Magana Albumin/Globulin [Mass ratio] 0.9 {ratio} Normal [facility] Comment on above: Performed By: #### M ERICK Faith, PHOS #### [facility] [address] [place] [address] Dr. David Magana ALP [Catalytic activity/Vol] 49 U/L Normal 46-116 [facility] Comment on above: Performed By: #### M G, BMP, PHOS #### [facility] [address] [place] [address] Dr. David Magana ALT [Catalytic activity/Vol] 25 U/L Normal 16-63 [facility] Comment on above: Performed By: #### M G, BMP, PHOS #### [facility] [address] [place] [address] Dr. David Magana Anion gap [Moles/Vol] 12.8 mmol/L Normal [facility] Comment on above: Performed By: #### M G, BMP, PHOS #### [facility] [address] [place] [address] Dr. David Magana AST [Catalytic activity/Vol] 9 U/L Critically low 15-37 [facility] Comment on above: Performed By: #### M G, BMP, PHOS #### [facility] [address] [place] [address] Dr. David Magana Bilirubin [Mass/Vol] 0.5 mg/dL Normal 0.2-1.0 [facility] Comment on above: Performed By: #### M G, BMP, PHOS #### [facility] [address] [place] [address] Dr. David Magana Calcium [Mass/Vol] 8.3 mg/dL Critically low 8.5-10.1 [facility] Comment on above: Performed By: #### M G, BMP, PHOS #### [facility] [address] [place] [address] Dr. David Magana Chloride [Moles/Vol] 105 mmol/L Normal 98-107 [facility] Comment on above: Performed By: #### M G, BMP, PHOS #### [facility] [address] [place] [address] Dr. David Magana CO2 [Moles/Vol] 24.2 mmol/L Normal 21.0-32.0 [facility] Comment on above: Performed By: #### M G, BMP, PHOS #### [facility] [address] [place] [address] Dr. David Magana Creatinine [Mass/Vol] 1.28 mg/dL Normal 0.70-1.30 [facility] Comment on above: Performed By: #### M ERICK Faith, PHOS #### [facility] [address] [address] [address] David Magana EGFR-AF NEW ZEALANDER >60 Normal >=60 [facility] Comment on above: Performed By: #### M ERICK Faith, PHOS #### [facility] [address] [place] [address] Dr. David Magana EGFR-NON AF NEW ZEALANDER 54 mL/min/1.73m2 Critically low >=60 [facility] Comment on above: Performed By: #### ERICK Jacques, PHOS #### [facility] [address] [place] [address] Dr. David Magana Globulin (S) [Mass/Vol] 2.9 g/dL Normal [facility] Comment on above: Performed By: #### ERICK Jacques, PHOS #### [facility] [address] [place] [address] Dr. David Magana Glucose [Mass/Vol] 205 mg/dL Critically high 74-106 [facility] Comment on above: Performed By: #### ERICK Jacques, PHOS #### [facility] [address] [place] [address] Dr. David Magana Potassium [Moles/Vol] 4.0 mmol/L Normal 3.5-5.1 [facility] Comment on above: Performed By: #### ERICK Jacques, PHOS #### [facility] [address] [place] [address] Dr. David Magana Protein [Mass/Vol] 5.5 g/dL Critically low 6.4-8.2 [facility] Comment on above: Performed By: #### ERICK Jacques, PHOS #### [facility] [address] [place] [address] Dr. David Magana Sodium [Moles/Vol] 138 mmol/L Normal 136-145 [facility] Comment on above: Performed By: #### ERICK Jacques, PHOS #### [facility] [address] [place] [address] Dr. David Magana Urea nitrogen [Mass/Vol] 36.0 mg/dL Critically high 7.0-18.0 [facility] Comment on above: Performed By: #### M ERICK Faith, PHOS #### [facility] [address] [place] [address] Dr. David Magana Urea nitrogen/Creatinine [Mass ratio] 28.1 mg/mg Normal [facility] Comment on above: Performed By: #### M ERICK Faith, PHOS #### [facility] [address] [place] [address] Dr. David Magana BNPon 07-21-2022 Natriuretic peptide B (Bld) [Mass/Vol] 3485.0 pg/mL Critically high <=1,800.0 [facility] Comment on above: Result Comment: repe ated Performed By: #### A 1C #### [facility] [address] [place] [address] Dr. David Magana CBC AUTO DIFFon 07-21-2022 BASO # 0.0 103/ul Normal 0.0-0.1 [facility] Comment on above: Performed By: #### C BC #### [facility] [address] [place] [address] Dr. David Magana Basophils/100 WBC (Bld) 0.3 % Normal 0.2-2.0 [facility] Comment on above: Performed By: #### C BC #### [facility] [address] [place] [address] Dr. David Magana EO # 0.2 103/ul Normal 0.0-0.7 [facility] Comment on above: Performed By: #### C BC #### [facility] [address] [place] [address] Dr. David Magana Eosinophils/100 WBC (Bld) 1.9 % Normal 0.9-7.0 [facility] Comment on above: Performed By: #### C BC #### [facility] [address] [place] [address] Dr. David Magana Erythrocyte distribution width (RBC) [Ratio] 13.4 % Normal 11.0-15.0 [facility] Comment on above: Performed By: #### C BC #### [facility] [address] [place] [address] Dr. David Magana Hematocrit (Bld) [Volume fraction] 42.5 % Normal 42.0-54.0 [facility] Comment on above: Performed By: #### C BC #### [facility] [address] [place] [address] Dr. David Magana Hemoglobin (Bld) [Mass/Vol] 14.2 g/dL Normal 14.0-18.0 [facility] Comment on above: Performed By: #### C BC #### [facility] [address] [place] [address] Dr. David Magana IG # 0.22 10e3/ul Critically high 0.00-0.03 [facility] Comment on above: Performed By: #### C BC #### [facility] [address] [place] [address] Dr. David Magana IG % 2.1 % Critically high 0.0-0.5 [facility] Comment on above: Performed By: #### C BC #### [facility] [address] [place] [address] Dr. David Magana LYMPH # 0.8 103/ul Critically low 1.2-3.8 [facility] Comment on above: Performed By: #### C BC #### [facility] [address] [place] [address] Dr. David Magana Lymphocytes/100 WBC (Bld) 7.7 % Critically low 20.5-60.0 [facility] Comment on above: Performed By: #### C BC #### [facility] [address] [place] [address] Dr. David Magana MANUAL DIFF REQ NO Normal [facility] Comment on above: Performed By: #### C BC #### [facility] [address] [place] [address] Dr. David Magana MCH (RBC) [Entitic mass] 33.0 pg Normal 25.9-34.0 [facility] Comment on above: Performed By: #### C BC #### [facility] [address] [address] [address] David Magana MCHC (RBC) [Mass/Vol] 33.4 g/dL Normal 29.9-35.2 [facility] Comment on above: Performed By: #### C BC #### [facility] [address] [place] [address] Dr. David Magana MCV (RBC) [Entitic vol] 98.8 fL Critically high 80.0-94.0 [facility] Comment on above: Performed By: #### C BC #### [facility] [address] [place] [address] Dr. David Magana MONO # 1.0 103/ul Critically high 0.3-0.8 [facility] Comment on above: Performed By: #### C BC #### [facility] [address] [place] [address] Dr. David Magana Monocytes/100 WBC (Bld) 9.7 % Normal 1.7-12.0 [facility] Comment on above: Performed By: #### C BC #### [facility] [address] [place] [address] Dr. David Magana NEUT # 8.1 103/ul Critically high 1.4-6.5 [facility] Comment on above: Performed By: #### C BC #### [facility] [address] [place] [address] Dr. David Magana Neutrophils/100 WBC (Bld) 78.3 % Critically high 43.0-75.0 [facility] Comment on above: Performed By: #### C BC #### [facility] [address] [place] [address] Dr. David Magana Platelet mean volume (Bld) [Entitic vol] 10.7 fL Normal 9.5-13.5 [facility] Comment on above: Performed By: #### C BC #### [facility] [address] [place] [address] Dr. David Magana PLT 177 103/ul Normal 150-450 [facility] Comment on above: Performed By: #### C BC #### [facility] [address] [place] [address] Dr. David Magana RBC 4.30 106/ul Critically low 4.70-6.10 [facility] Comment on above: Performed By: #### C BC #### [facility] [address] [address] [address] David Magana WBC 10.4 103/ul Normal 4.0-11.0 [facility] Comment on above: Performed By: #### C BC #### [facility] [address] [place] [address] Dr. David Magana PROF 14(COMP METB)on 022 Albumin [Mass/Vol] 2.6 g/dL Critically low 3.4-5.0 [facility] Comment on above: Performed By: #### A 1C #### [facility] [address] [place] [address] Dr. David Magana Albumin/Globulin [Mass ratio] 1.0 {ratio} Normal [facility] Comment on above: Performed By: #### A 1C #### [facility] [address] [place] [address] Dr. David Magana ALP [Catalytic activity/Vol] 50 U/L Normal 46-116 [facility] Comment on above: Performed By: #### A 1C #### [facility] [address] [place] [address] Dr. David Magana ALT [Catalytic activity/Vol] 28 U/L Normal 16-63 [facility] Comment on above: Performed By: #### A 1C #### [facility] [address] [place] [address] Dr. David Magana Anion gap [Moles/Vol] 11.4 mmol/L Normal [facility] Comment on above: Performed By: #### A 1C #### [facility] [address] [place] [address] Dr. David Magana AST [Catalytic activity/Vol] 13 U/L Critically low 15-37 [facility] Comment on above: Performed By: #### A 1C #### [facility] [address] [address] [address] David Magana Bilirubin [Mass/Vol] 0.4 mg/dL Normal 0.2-1.0 [facility] Comment on above: Performed By: #### A 1C #### [facility] [address] [address] [address] David Magana Calcium [Mass/Vol] 8.4 mg/dL Critically low 8.5-10.1 [facility] Comment on above: Performed By: #### A 1C #### [facility] [address] [address] [address] David Magana Chloride [Moles/Vol] 107 mmol/L Normal 98-107 [facility] Comment on above: Performed By: #### A 1C #### [facility] [address] [place] [address] Dr. David Magana CO2 [Moles/Vol] 24.6 mmol/L Normal 21.0-32.0 [facility] Comment on above: Performed By: #### A 1C #### [facility] [address] [address] [address] David Magana Creatinine [Mass/Vol] 1.26 mg/dL Normal 0.70-1.30 [facility] Comment on above: Performed By: #### A 1C #### [facility] [address] [address] [address] David Magana EGFR-AF NEW ZEALANDER >60 Normal >=60 [facility] Comment on above: Performed By: #### A 1C #### [facility] [address] [address] [address] David Magana EGFR-NON AF NEW ZEALANDER 55 mL/min/1.73m2 Critically low >=60 [facility] Comment on above: Performed By: #### A 1C #### [facility] [address] [address] [address] David Magana Globulin (S) [Mass/Vol] 2.7 g/dL Normal [facility] Comment on above: Performed By: #### A 1C #### [facility] [address] [address] [address] David Magana Glucose [Mass/Vol] 203 mg/dL Critically high 74-106 [facility] Comment on above: Performed By: #### A 1C #### [facility] [address] [address] [address] David Magana Potassium [Moles/Vol] 4.0 mmol/L Normal 3.5-5.1 [facility] Comment on above: Performed By: #### A 1C #### [facility] [address] [address] [address] David Magana Protein [Mass/Vol] 5.3 g/dL Critically low 6.4-8.2 [facility] Comment on above: Performed By: #### A 1C #### [facility] [address] [place] [address] Dr. David Magana Sodium [Moles/Vol] 139 mmol/L Normal 136-145 [facility] Comment on above: Performed By: #### A 1C #### [facility] [address] [address] [address] David Magana Urea nitrogen [Mass/Vol] 33.0 mg/dL Critically high 7.0-18.0 [facility] Comment on above: Performed By: #### A 1C #### [facility] [address] [address] [address] David Magana Urea nitrogen/Creatinine [Mass ratio] 26.2 mg/mg Normal [facility] Comment on above: Performed By: #### A 1C #### [facility] [address] [place] [address] Dr. David Magana BNPon 07-20-2022 Natriuretic peptide B (Bld) [Mass/Vol] 7478.0 pg/mL Critically high <=1,800.0 [facility] Comment on above: Performed By: #### A 1C #### [facility] [address] [place] [address] Dr. David Magana CBC AUTO DIFFon 07-20-2022 BASO # 0.1 103/ul Normal 0.0-0.1 [facility] Comment on above: Performed By: #### M ERICK Faith, PHOS #### [facility] [address] [place] [address] Dr. David Magana Basophils/100 WBC (Bld) 0.8 % Normal 0.2-2.0 [facility] Comment on above: Performed By: #### ERICK Jacques, PHOS #### [facility] [address] [place] [address] Dr. David Magana EO # 0.1 103/ul Normal 0.0-0.7 [facility] Comment on above: Performed By: #### ERICK Jacques, PHOS #### [facility] [address] [place] [address] Dr. David Magana Eosinophils/100 WBC (Bld) 0.6 % Critically low 0.9-7.0 [facility] Comment on above: Performed By: #### ERICK Jacques, PHOS #### [facility] [address] [place] [address] Dr. David Magana Erythrocyte distribution width (RBC) [Ratio] 13.4 % Normal 11.0-15.0 [facility] Comment on above: Performed By: #### ERICK Jacques, PHOS #### [facility] [address] [place] [address] Dr. David Magana Hematocrit (Bld) [Volume fraction] 43.2 % Normal 42.0-54.0 [facility] Comment on above: Performed By: #### ERICK Jacques, PHOS #### [facility] [address] [place] [address] Dr. David Magana Hemoglobin (Bld) [Mass/Vol] 14.2 g/dL Normal 14.0-18.0 [facility] Comment on above: Performed By: #### ERICK Jacques, PHOS #### [facility] [address] [place] [address] Dr. David Magana IG # 0.21 10e3/ul Critically high 0.00-0.03 [facility] Comment on above: Performed By: #### M G, BMP, PHOS #### [facility] [address] [address] [address] David Magana IG % 2.0 % Critically high 0.0-0.5 [facility] Comment on above: Performed By: #### M G, BMP, PHOS #### [facility] [address] [address] [address] David Magana LYMPH # 0.8 103/ul Critically low 1.2-3.8 [facility] Comment on above: Performed By: #### M G, BMP, PHOS #### [facility] [address] [address] [address] David Magana Lymphocytes/100 WBC (Bld) 7.7 % Critically low 20.5-60.0 [facility] Comment on above: Performed By: #### M G, BMP, PHOS #### [facility] [address] [place] [address] Dr. David Magana MANUAL DIFF REQ NO Normal [facility] Comment on above: Performed By: #### M G, BMP, PHOS #### [facility] [address] [place] [address] Dr. David Magana MCH (RBC) [Entitic mass] 33.2 pg Normal 25.9-34.0 [facility] Comment on above: Performed By: #### M G, BMP, PHOS #### [facility] [address] [place] [address] Dr. David Magana MCHC (RBC) [Mass/Vol] 32.9 g/dL Normal 29.9-35.2 [facility] Comment on above: Performed By: #### M G, BMP, PHOS #### [facility] [address] [address] [address] David Magana MCV (RBC) [Entitic vol] 100.9 fL Critically high 80.0-94.0 [facility] Comment on above: Performed By: #### M G, BMP, PHOS #### [facility] [address] [address] [address] David Magana MONO # 1.0 103/ul Critically high 0.3-0.8 [facility] Comment on above: Performed By: #### ERICK Jacques, PHOS #### [facility] [address] [place] [address] Dr. David Magana Monocytes/100 WBC (Bld) 10.0 % Normal 1.7-12.0 [facility] Comment on above: Performed By: #### ERICK Jacques, PHOS #### [facility] [address] [place] [address] Dr. David Magana NEUT # 8.1 103/ul Critically high 1.4-6.5 [facility] Comment on above: Performed By: #### ERICK Jacques, PHOS #### [facility] [address] [place] [address] Dr. David Magana Neutrophils/100 WBC (Bld) 78.9 % Critically high 43.0-75.0 [facility] Comment on above: Performed By: #### ERICK Jacques, PHOS #### [facility] [address] [place] [address] Dr. David Magana Platelet mean volume (Bld) [Entitic vol] 10.8 fL Normal 9.5-13.5 [facility] Comment on above: Performed By: #### ERICK Jacques, PHOS #### [facility] [address] [place] [address] Dr. David Magana PLT 172 103/ul Normal 150-450 [facility] Comment on above: Performed By: #### ERICK Jacques, PHOS #### [facility] [address] [place] [address] Dr. David Magana RBC 4.28 106/ul Critically low 4.70-6.10 [facility] Comment on above: Performed By: #### ERICK Jacques, PHOS #### [facility] [address] [place] [address] Dr. David Magana WBC 10.3 103/ul Normal 4.0-11.0 [facility] Comment on above: Performed By: #### ERICK Jacques, PHOS #### [facility] [address] [place] [address] Dr. David Magana CULTURE URINEon 07-20-2022 CULTURE URINE Isolate 1 Escherichia coli 15,000 cfu/mL of ORGANISM 1 Escherichia coli ANTIBIOTIC M.I.C RX STATUS Ampicillin >=32 R F Ampicillin/Sulbactam >=32 R F Piperacillin/Tazobac encinas <=4 S F Cefazolin <=4 S F Ceftazidime <=1 S F Ceftriaxone <=1 S F Ertapenem <=0.5 S F Imipenem <=0.25 S F Amikacin <=2 S F Gentamicin <=1 S F Tobramycin <=1 S F Ciprofloxacin >=4 R F Levofloxacin >=8 R F Nitrofurantoin <=16 S F Trimethoprim/Sulfame thoxazole >=320 R F Normal [facility] Comment on above: Performed By: #### M G, BMP, PHOS #### [facility] [address] [place] [address] Dr. David Magana PROF 14(COMP METB)on 022 Albumin [Mass/Vol] 2.6 g/dL Critically low 3.4-5.0 [facility] Comment on above: Performed By: #### A 1C #### [facility] [address] [place] [address] Dr. David Magana Albumin/Globulin [Mass ratio] 0.9 {ratio} Normal [facility] Comment on above: Performed By: #### A 1C #### [facility] [address] [place] [address] Dr. David Magana ALP [Catalytic activity/Vol] 48 U/L Normal 46-116 [facility] Comment on above: Performed By: #### A 1C #### [facility] [address] [place] [address] Dr. David Magana ALT [Catalytic activity/Vol] 27 U/L Normal 16-63 [facility] Comment on above: Performed By: #### A 1C #### [facility] [address] [place] [address] Dr. David Magana Anion gap [Moles/Vol] 13.4 mmol/L Normal [facility] Comment on above: Performed By: #### A 1C #### [facility] [address] [address] [address] David Magana AST [Catalytic activity/Vol] 22 U/L Normal 15-37 [facility] Comment on above: Performed By: #### A 1C #### [facility] [address] [address] [address] David Magana Bilirubin [Mass/Vol] 0.5 mg/dL Normal 0.2-1.0 [facility] Comment on above: Performed By: #### A 1C #### [facility] [address] [address] [address] David Magana Calcium [Mass/Vol] 8.3 mg/dL Critically low 8.5-10.1 [facility] Comment on above: Performed By: #### A 1C #### [facility] [address] [place] [address] Dr. David Magana Chloride [Moles/Vol] 105 mmol/L Normal 98-107 [facility] Comment on above: Performed By: #### A 1C #### [facility] [address] [place] [address] Dr. David Magana CO2 [Moles/Vol] 21.0 mmol/L Normal 21.0-32.0 [facility] Comment on above: Performed By: #### A 1C #### [facility] [address] [place] [address] Dr. David Magana Creatinine [Mass/Vol] 1.38 mg/dL Critically high 0.70-1.30 [facility] Comment on above: Performed By: #### A 1C #### [facility] [address] [place] [address] Dr. David Magana EGFR-AF NEW ZEALANDER 60 mL/min/1.73m2 Normal >=60 [facility] Comment on above: Performed By: #### A 1C #### [facility] [address] [address] [address] David Magana EGFR-NON AF NEW ZEALANDER 49 mL/min/1.73m2 Critically low >=60 [facility] Comment on above: Performed By: #### A 1C #### [facility] [address] [place] [address] Dr. David Magana Globulin (S) [Mass/Vol] 2.8 g/dL Normal [facility] Comment on above: Performed By: #### A 1C #### [facility] [address] [address] [address] David Magana Glucose [Mass/Vol] 156 mg/dL Critically high 74-106 [facility] Comment on above: Performed By: #### A 1C #### [facility] [address] [place] [address] Dr. David Magana Potassium [Moles/Vol] 4.4 mmol/L Normal 3.5-5.1 [facility] Comment on above: Performed By: #### A 1C #### [facility] [address] [place] [address] Dr. David Magana Protein [Mass/Vol] 5.4 g/dL Critically low 6.4-8.2 [facility] Comment on above: Performed By: #### A 1C #### [facility] [address] [place] [address] Dr. David Magana Sodium [Moles/Vol] 135 mmol/L Critically low 136-145 [facility] Comment on above: Performed By: #### A 1C #### [facility] [address] [place] [address] Dr. David Magana Urea nitrogen [Mass/Vol] 40.0 mg/dL Critically high 7.0-18.0 [facility] Comment on above: Performed By: #### A 1C #### [facility] [address] [place] [address] Dr. David Magana Urea nitrogen/Creatinine [Mass ratio] 29.0 mg/mg Normal [facility] Comment on above: Performed By: #### A 1C #### [facility] [address] [place] [address] Dr. David Magana BNPon 07-19-2022 Natriuretic peptide B (Bld) [Mass/Vol] 08969.0 pg/mL Critically high <=1,800.0 [facility] Comment on above: Performed By: #### C VDTBH #### [facility] [address] [address] [address] David Magana CBC AUTO DIFFon 07-19-2022 BASO # 0.0 103/ul Normal 0.0-0.1 [facility] Comment on above: Performed By: #### C BC #### [facility] [address] [place] [address] Dr. David Magana Basophils/100 WBC (Bld) 0.3 % Normal 0.2-2.0 [facility] Comment on above: Performed By: #### C BC #### [facility] [address] [place] [address] Dr. David Magana EO # 0.0 103/ul Normal 0.0-0.7 [facility] Comment on above: Performed By: #### C BC #### [facility] [address] [place] [address] Dr. David Magana Eosinophils/100 WBC (Bld) 0.2 % Critically low 0.9-7.0 [facility] Comment on above: Performed By: #### C BC #### [facility] [address] [place] [address] Dr. David Magana Erythrocyte distribution width (RBC) [Ratio] 13.4 % Normal 11.0-15.0 [facility] Comment on above: Performed By: #### C BC #### [facility] [address] [place] [address] Dr. David Magana Hematocrit (Bld) [Volume fraction] 43.4 % Normal 42.0-54.0 [facility] Comment on above: Performed By: #### C BC #### [facility] [address] [place] [address] Dr. David Magana Hemoglobin (Bld) [Mass/Vol] 14.6 g/dL Normal 14.0-18.0 [facility] Comment on above: Performed By: #### C BC #### [facility] [address] [place] [address] Dr. David Magana IG # 0.18 10e3/ul Critically high 0.00-0.03 [facility] Comment on above: Performed By: #### C BC #### [facility] [address] [place] [address] Dr. David Magana IG % 1.5 % Critically high 0.0-0.5 [facility] Comment on above: Performed By: #### C BC #### [facility] [address] [address] [address] David Magana LYMPH # 0.8 103/ul Critically low 1.2-3.8 [facility] Comment on above: Performed By: #### C BC #### [facility] [address] [place] [address] Dr. David Magana Lymphocytes/100 WBC (Bld) 6.6 % Critically low 20.5-60.0 [facility] Comment on above: Performed By: #### C BC #### [facility] [address] [place] [address] Dr. David Magana MANUAL DIFF REQ NO Normal [facility] Comment on above: Performed By: #### C BC #### [facility] [address] [address] [address] David Magana MCH (RBC) [Entitic mass] 33.7 pg Normal 25.9-34.0 [facility] Comment on above: Performed By: #### C BC #### [facility] [address] [place] [address] Dr. David Magana MCHC (RBC) [Mass/Vol] 33.6 g/dL Normal 29.9-35.2 [facility] Comment on above: Performed By: #### C BC #### [facility] [address] [place] [address] Dr. David Magana MCV (RBC) [Entitic vol] 100.2 fL Critically high 80.0-94.0 [facility] Comment on above: Performed By: #### C BC #### [facility] [address] [place] [address] Dr. David Magana MONO # 1.1 103/ul Critically high 0.3-0.8 [facility] Comment on above: Performed By: #### C BC #### [facility] [address] [address] [address] David Magana Monocytes/100 WBC (Bld) 9.3 % Normal 1.7-12.0 [facility] Comment on above: Performed By: #### C BC #### [facility] [address] [address] [address] David Magana NEUT # 9.6 103/ul Critically high 1.4-6.5 [facility] Comment on above: Performed By: #### C BC #### [facility] [address] [address] [address] David Magana Neutrophils/100 WBC (Bld) 82.1 % Critically high 43.0-75.0 [facility] Comment on above: Performed By: #### C BC #### [facility] [address] [place] [address] Dr. David Magana Platelet mean volume (Bld) [Entitic vol] 10.8 fL Normal 9.5-13.5 [facility] Comment on above: Performed By: #### C BC #### [facility] [address] [address] [address] David Magana PLT 202 103/ul Normal 150-450 [facility] Comment on above: Performed By: #### C BC #### [facility] [address] [address] [address] David Magana RBC 4.33 106/ul Critically low 4.70-6.10 [facility] Comment on above: Performed By: #### C BC #### [facility] [address] [address] [address] David Magana WBC 11.7 103/ul Critically high 4.0-11.0 [facility] Comment on above: Performed By: #### C BC #### [facility] [address] [address] [address] David Magana PROF 14(COMP METB)on 022 Albumin [Mass/Vol] 3.4 g/dL Normal 3.4-5.0 [facility] Comment on above: Performed By: #### A 1C #### [facility] [address] [place] [address] Dr. David Magana Albumin/Globulin [Mass ratio] 1.1 {ratio} Normal [facility] Comment on above: Performed By: #### A 1C #### [facility] [address] [place] [address] Dr. David Magana ALP [Catalytic activity/Vol] 63 U/L Normal 46-116 [facility] Comment on above: Performed By: #### A 1C #### [facility] [address] [place] [address] Dr. David Magana ALT [Catalytic activity/Vol] 34 U/L Normal 16-63 [facility] Comment on above: Performed By: #### A 1C #### [facility] [address] [place] [address] Dr. David Magana Anion gap [Moles/Vol] 20.9 mmol/L Normal [facility] Comment on above: Performed By: #### A 1C #### [facility] [address] [place] [address] Dr. David Magana AST [Catalytic activity/Vol] 18 U/L Normal 15-37 [facility] Comment on above: Performed By: #### A 1C #### [facility] [address] [place] [address] Dr. David Magana Bilirubin [Mass/Vol] 0.5 mg/dL Normal 0.2-1.0 [facility] Comment on above: Performed By: #### A 1C #### [facility] [address] [place] [address] Dr. David Magana Calcium [Mass/Vol] 8.5 mg/dL Normal 8.5-10.1 [facility] Comment on above: Performed By: #### A 1C #### [facility] [address] [place] [address] Dr. David Magana Chloride [Moles/Vol] 99 mmol/L Normal 98-107 [facility] Comment on above: Performed By: #### A 1C #### [facility] [address] [address] [address] David Magana CO2 [Moles/Vol] 19.1 mmol/L Critically low 21.0-32.0 [facility] Comment on above: Performed By: #### A 1C #### [facility] [address] [address] [address] David Magana Creatinine [Mass/Vol] 1.80 mg/dL Critically high 0.70-1.30 [facility] Comment on above: Performed By: #### A 1C #### [facility] [address] [address] [address] David Magana EGFR-AF NEW ZEALANDER 44 mL/min/1.73m2 Critically low >=60 [facility] Comment on above: Performed By: #### A 1C #### [facility] [address] [address] [address] David Magana EGFR-NON AF NEW ZEALANDER 36 mL/min/1.73m2 Critically low >=60 [facility] Comment on above: Performed By: #### A 1C #### [facility] [address] [address] [address] David Magana Globulin (S) [Mass/Vol] 3.2 g/dL Normal [facility] Comment on above: Performed By: #### A 1C #### [facility] [address] [address] [address] David Magana Glucose [Mass/Vol] 287 mg/dL Critically high 74-106 [facility] Comment on above: Performed By: #### A 1C #### [facility] [address] [address] [address] David Magana Potassium [Moles/Vol] 5.0 mmol/L Normal 3.5-5.1 [facility] Comment on above: Performed By: #### A 1C #### [facility] [address] [address] [address] David Magana Protein [Mass/Vol] 6.6 g/dL Normal 6.4-8.2 [facility] Comment on above: Performed By: #### A 1C #### [facility] [address] [address] [address] David Magana Sodium [Moles/Vol] 134 mmol/L Critically low 136-145 Th [facility] Comment on above: Performed By: #### A 1C #### [facility] [address] [place] [address] Dr. David Magana Urea nitrogen [Mass/Vol] 51.0 mg/dL Critically high 7.0-18.0 [facility] Comment on above: Performed By: #### A 1C #### [facility] [address] [address] [address] David Magana Urea nitrogen/Creatinine [Mass ratio] 28.3 mg/mg [facility] Comment on above: Performed By: #### A 1C #### [facility] [address] [place] [address] Dr. David [facility] MODE NASAL CANNULA Normal [facility] Comment on above: Performed By: #### A 1C #### [facility] [address] [place] [address] Dr. David Magana ALLENS TEST Positive [facility] Comment on above: Performed By: #### A 1C #### [facility] [address] [place] [address] Dr. David Magana Base excess Calc (Bld) [Moles/Vol] -9.0000 mmol/L Critically low -2.0-2.0 [facility] Comment on above: Performed By: #### A 1C #### [facility] [address] [place] [address] Dr. David Magana BIPAP PRESSURE Normal [facility] Comment on above: Performed By: #### A 1C #### [facility] [address] [place] [address] Dr. David Magana CPAP [facility] Comment on above: Performed By: #### A 1C #### [facility] [address] [place] [address] Dr. David Magana FIO2 Normal [facility] Comment on above: Performed By: #### A 1C #### [facility] [address] [address] [address] David Magana HCO3 (Bld) [Moles/Vol] 18.4 mmol/L Critically low 22.0-26.0 [facility] Comment on above: Performed By: #### A 1C #### [facility] [address] [address] [address] David Magana LPM 1.5 Normal [facility] Comment on above: Performed By: #### A 1C #### [facility] [address] [place] [address] Dr. David Magana MINUTE VOLUME Normal [facility] Comment on above: Performed By: #### A 1C #### [facility] [address] [place] [address] Dr. David Magana Oxygen (Bld) [Partial pressure] 69.5 mm[Hg] Critically low 80.0-100.0 [facility] Comment on above: Performed By: #### A 1C #### [facility] [address] [place] [address] Dr. David Magana Oxygen saturation in Blood 94.2 % Critically low 95.0-100.0 [facility] Comment on above: Performed By: #### A 1C #### [facility] [address] [place] [address] Dr. David Magana PCO2 29.6 mmHg Critically low 35.0-45.0 [facility] Comment on above: Performed By: #### A 1C #### [facility] [address] [place] [address] Dr. David Magana PEEP [facility] Comment on above: Performed By: #### A 1C #### [facility] [address] [place] [address] Dr. David Magana pH (Bld) 7.355 [pH] Normal 7.350-7.450 [facility] Comment on above: Performed By: #### A 1C #### [facility] [address] [place] [address] Dr. David Magana PIP Normal [facility] Comment on above: Performed By: #### A 1C #### [facility] [address] [place] [address] Dr. David Magana [facility] Comment on above: Performed By: #### A 1C #### [facility] [address] [place] [address] Dr. David Magana PUNCTURE SITE LR [facility] Comment on above: Performed By: #### A 1C #### [facility] [address] [place] [address] Dr. David Magana [place] Comment on above: Performed By: #### A 1C #### [facility] [address] [place] [address] Dr. David Magana VENT MODE [facility] Comment on above: Performed By: #### A 1C #### [facility] [address] [place] [address] Dr. David Magana [facility] Comment on above: Performed By: #### A 1C #### [facility] [address] [place] [address] Dr. David Magana BNPon 07-18-2022 Natriuretic peptide B (Bld) [Mass/Vol] 7047.0 pg/mL Critically high <=1,800.0 [facility] Comment on above: Performed By: #### C VDTB #### [facility] [address] [place] [address] Dr. David Magana CARDIAC BARRIE 3-6on 2 CK [Catalytic activity/Vol] 396 U/L Critically high 39-308 [facility] Comment on above: Performed By: #### M G, BMP, PHOS #### [facility] [address] [place] [address] Dr. David Magana CK.MB [Mass/Vol] 2.94 ng/mL Normal <=3.60 [facility] Comment on above: Performed By: #### M G, BMP, PHOS #### [facility] [address] [place] [address] Dr. David Magana HSTROP 11.1 pg/mL Normal 4.0-76.1 [facility] Comment on above: Result Comment: CUT- OFF POINTS HAVE BEEN ESTABLISHED BASED ON THE FOURTH UNIVERSAL DEFINITIONS OF MYOCARDIAL INFARCTION. THE UPPER REFERENCE LIMIT (URL) OF TROPONIN, DEFINED THE 99TH PERCENTILE OF cTnI DISTRIBUTION IN A REFERENCE POPULATION, HAS BEEN CONFIRMED THE DECISION THRESHOLD FOR MD DIAGNOSIS. Performed By: #### M G, BMP, PHOS #### [facility] [address] [place] [address] Dr. David Magana CK [Catalytic activity/Vol] 58 U/L Normal 39-308 [facility] Comment on above: Performed By: #### M G, BMP, PHOS #### [facility] [address] [place] [address] Dr. David Magana CK.MB [Mass/Vol] 1.71 ng/mL Normal <=3.60 [facility] Comment on above: Performed By: #### M Marcell, ERICK, PHOS #### [facility] [address] [place] [address] Dr. David Magana HSTROP 10.6 pg/mL Normal 4.0-76.1 [facility] Comment on above: Result Comment: CUT- OFF POINTS HAVE BEEN ESTABLISHED BASED ON THE FOURTH UNIVERSAL DEFINITIONS OF MYOCARDIAL INFARCTION. THE UPPER REFERENCE LIMIT (URL) OF TROPONIN, DEFINED THE 99TH PERCENTILE OF cTnI DISTRIBUTION IN A REFERENCE POPULATION, HAS BEEN CONFIRMED THE DECISION THRESHOLD FOR MD DIAGNOSIS. Performed By: #### M G, ERICK, PHOS #### [facility] [address] [place] [address] Dr. David Magana CBC AUTO DIFFon 07-18-2022 BASO # 0.0 103/ul Normal 0.0-0.1 [facility] Comment on above: Performed By: #### M G, BMP, PHOS #### [facility] [address] [place] [address] Dr. David Magana Basophils/100 WBC (Bld) 0.2 % Normal 0.2-2.0 [facility] Comment on above: Performed By: #### M G, BMP, PHOS #### [facility] [address] [place] [address] Dr. David Magana EO # 0.0 103/ul Normal 0.0-0.7 [facility] Comment on above: Performed By: #### M ERICK Faith, PHOS #### [facility] [address] [place] [address] Dr. David Magana Eosinophils/100 WBC (Bld) 0.2 % Critically low 0.9-7.0 [facility] Comment on above: Performed By: #### ERICK Jacques, PHOS #### [facility] [address] [place] [address] Dr. David Magana Erythrocyte distribution width (RBC) [Ratio] 13.2 % Normal 11.0-15.0 [facility] Comment on above: Performed By: #### ERICK Jacques, PHOS #### [facility] [address] [place] [address] Dr. David Magana Hematocrit (Bld) [Volume fraction] 43.8 % Normal 42.0-54.0 [facility] Comment on above: Performed By: #### ERICK Jacques, PHOS #### [facility] [address] [place] [address] Dr. David Magana Hemoglobin (Bld) [Mass/Vol] 14.5 g/dL Normal 14.0-18.0 [facility] Comment on above: Performed By: #### ERICK Jacques, PHOS #### [facility] [address] [place] [address] Dr. David Magana IG # 0.15 10e3/ul Critically high 0.00-0.03 [facility] Comment on above: Performed By: #### ERICK Jacques, PHOS #### [facility] [address] [place] [address] Dr. David Magana IG % 1.3 % Critically high 0.0-0.5 [facility] Comment on above: Performed By: #### M ERICK Faith, PHOS #### [facility] [address] [place] [address] Dr. David Magana LYMPH # 0.5 103/ul Critically low 1.2-3.8 [facility] Comment on above: Performed By: #### M ERICK Faith, PHOS #### [facility] [address] [place] [address] Dr. David Magana Lymphocytes/100 WBC (Bld) 3.8 % Critically low 20.5-60.0 [facility] Comment on above: Performed By: #### M G, BMP, PHOS #### [facility] [address] [place] [address] Dr. David Magana MANUAL DIFF REQ NO Normal [facility] Comment on above: Performed By: #### M G, BMP, PHOS #### [facility] [address] [place] [address] Dr. David Magana MCH (RBC) [Entitic mass] 32.7 pg Normal 25.9-34.0 [facility] Comment on above: Performed By: #### M G, BMP, PHOS #### [facility] [address] [place] [address] Dr. David Magana MCHC (RBC) [Mass/Vol] 33.1 g/dL Normal 29.9-35.2 [facility] Comment on above: Performed By: #### M G, BMP, PHOS #### [facility] [address] [place] [address] Dr. David Magana MCV (RBC) [Entitic vol] 98.9 fL Critically high 80.0-94.0 [facility] Comment on above: Performed By: #### M G, BMP, PHOS #### [facility] [address] [place] [address] Dr. David Magana MONO # 0.7 103/ul Normal 0.3-0.8 [facility] Comment on above: Performed By: #### M G, BMP, PHOS #### [facility] [address] [place] [address] Dr. David Magana Monocytes/100 WBC (Bld) 5.7 % Normal 1.7-12.0 [facility] Comment on above: Performed By: #### M G, BMP, PHOS #### [facility] [address] [place] [address] Dr. David Magana NEUT # 10.4 103/ul Critically high 1.4-6.5 [facility] Comment on above: Performed By: #### ERICK Jacques, PHOS #### [facility] [address] [address] [address] David Magana Neutrophils/100 WBC (Bld) 88.8 % Critically high 43.0-75.0 [facility] Comment on above: Performed By: #### ERICK Jacques, PHOS #### [facility] [address] [address] [address] David Magana Platelet mean volume (Bld) [Entitic vol] 11.0 fL Normal 9.5-13.5 [facility] Comment on above: Performed By: #### ERICK Jacques, PHOS #### [facility] [address] [address] [address] David Magana PLT 198 103/ul Normal 150-450 [facility] Comment on above: Performed By: #### ERICK Jacques, PHOS #### [facility] [address] [address] [address] David Magana RBC 4.43 106/ul Critically low 4.70-6.10 [facility] Comment on above: Performed By: #### ERICK Jacques, PHOS #### [facility] [address] [address] [address] David Magana WBC 11.8 103/ul Critically high 4.0-11.0 [facility] Comment on above: Performed By: #### ERICK Jacques, PHOS #### [facility] [address] HEAD WO CONon 07-18-2022 CT HEAD WO CON INDICATION: 82 years old; Male. Change in mental status. TECHNIQUE: CT Head (ax/cor/sag reformats). Ionizing radiation dose reduced via iterative reconstruction/FBP blend and body size kV/mA adjustment. Comparison: None FINDINGS: POSTOPERATIVE CHANGES: None. BRAIN PARENCHYMA: No hemorrhage, mass or acute infarct. Normal thompson/white differentiation. VENTRICLES/EXTRA-AXI AL SPACES: Widened, consistent with atrophy. SINUSES/MASTOIDS: Visualized sinuses are clear. Nasal septal deviation to the right with spur formation. Mastoid air cells are clear. MSK: No displaced or depressed calvarial fracture is noted. OTHER: No hyperdense intraluminal thrombus is seen. Vascular calcifications are noted. IMPRESSION: 1. No acute intracranial abnormality. No hemorrhage or mass effect. 2. Atrophy. 3. Vascular calcification. Electronically authenticated by: FRANCISCO ZELAYA Date: 2022-07-18 05:12 Normal [facility] Covid-19 PCR (CVDTB)on SARS-CoV-2 (COVID-19) RNA SULTANA+probe Ql (Unsp spec) Detected Critically abnormal NOT DETECTED [facility] Comment on above: Result Comment: This test is not yet approved or cleared by the [place] FDA. When there are no FDA-approved or cleared tests available, and other criteria are met, FDA can make tests available under an emergency access mechanism called an Emergency Use Authorization (EUA). The EUA for this test is supported by the Adjunct Professor Of [employer] of Health and Human Service's declaration that circumstances exist to justify the emergency use of in vitro diagnostics for the detection and/or diagnosis of the virus that causes COVID-19. This EUA will remain in effect for the duration of the COVID-19 declaration justifying emergency of IVDs, unless it is terminated or revoked by the FDA (after which the test may no longer be used). Performed By: #### C VDTB #### [facility] [address] [place], [place] [address] Dr. David Magana D-DIMERon 07-18-2022 D-DIMER 1.69 mg/L FEU Critically high <=0.59 [facility] Comment on above: Performed By: #### C BC #### [facility] [address] [place], [place] [address] Dr. David Magana D-DIMER COMMENTS SEE BELOW Normal [facility] Comment on above: Result Comment: Incr eases in D-Dimer concentration observed with thromboembolic events can be variable due to localization, size, and age of the thrombus. Therefore, a thromboembolic event cannot be diagnosed with certainty on the basis of the reference range. D-Dimers may also be elevated for a variety of disorders including: advanced age, , coronary disease, cancer, liver disease, infection, inflammation, hematoma, DIC, trauma, post-surgery, diabetes, thrombolytic or anticoagulant therapy, stress, and generalized hospitalization. Performed By: #### C BC #### [facility] [address] [place] [address] Dr. David Magana POINT OF CARE GLUCOSEon Glucose [Mass/Vol] 329 mg/dL Critically high 74-106 [facility] Comment on above: Performed By: #### P OCGLUC #### [facility] [address] [place] [address] Dr. David Magana Glucose [Mass/Vol] 354 mg/dL Critically high 74-106 [facility] Comment on above: Performed By: #### P OCGLUC #### [facility] [address] [place] [address] Dr. David Magana PROF 14(COMP METB)on 022 Albumin [Mass/Vol] 3.6 g/dL Normal 3.4-5.0 [facility] Comment on above: Performed By: #### C VDTBH #### [facility] [address] [place] [address] Dr. David Magana Albumin/Globulin [Mass ratio] 1.1 {ratio} Normal [facility] Comment on above: Performed By: #### C VDTBH #### [facility] [address] [place] [address] Dr. David Magana ALP [Catalytic activity/Vol] 67 U/L Normal 46-116 [facility] Comment on above: Performed By: #### C VDTBH #### [facility] [address] [place] [address] Dr. David Magana ALT [Catalytic activity/Vol] 33 U/L Normal 16-63 [facility] Comment on above: Performed By: #### C VDTBH #### [facility] [address] [place] [address] Dr. David Magana Anion gap [Moles/Vol] 23.5 mmol/L Normal [facility] Comment on above: Performed By: #### C VDTBH #### [facility] [address] [address] [address] David Magana AST [Catalytic activity/Vol] 13 U/L Critically low 15-37 [facility] Comment on above: Performed By: #### C VDTBH #### [facility] [address] [place] [address] Dr. David Magana Bilirubin [Mass/Vol] 0.6 mg/dL Normal 0.2-1.0 [facility] Comment on above: Performed By: #### C VDTBH #### [facility] [address] [place] [address] Dr. David Magana Calcium [Mass/Vol] 8.4 mg/dL Critically low 8.5-10.1 [facility] Comment on above: Performed By: #### C VDTBH #### [facility] [address] [place] [address] Dr. David Magana Chloride [Moles/Vol] 93 mmol/L Critically low 98-107 [facility] Comment on above: Performed By: #### C VDTBH #### [facility] [address] [place] [address] Dr. David Magana CO2 [Moles/Vol] 17.9 mmol/L Critically low 21.0-32.0 [facility] Comment on above: Performed By: #### C VDTBH #### [facility] [address] [place] [address] Dr. David Magana Creatinine [Mass/Vol] 2.15 mg/dL Critically high 0.70-1.30 [facility] Comment on above: Performed By: #### C VDTBH #### [facility] [address] [place] [address] Dr. David Magana EGFR-AF NEW ZEALANDER 36 mL/min/1.73m2 Critically low >=60 [facility] Comment on above: Performed By: #### C VDTBH #### [facility] [address] [place] [address] Dr. David Magana EGFR-NON AF NEW ZEALANDER 30 mL/min/1.73m2 Critically low >=60 [facility] Comment on above: Performed By: #### C VDTBH #### [facility] [address] [place] [address] Dr. David Magana Globulin (S) [Mass/Vol] 3.2 g/dL Normal [facility] Comment on above: Performed By: #### C VDTBH #### [facility] [address] [place] [address] Dr. David Magana Glucose [Mass/Vol] 345 mg/dL Critically high 74-106 [facility] Comment on above: Performed By: #### C VDTBH #### [facility] [address] [place] [address] Dr. David Magana Potassium [Moles/Vol] 5.4 mmol/L Critically high 3.5-5.1 [facility] Comment on above: Performed By: #### C VDTBH #### [facility] [address] [place] [address] Dr. David Magana Performed By: #### K #### [facility] [address] [place] [address] Dr. David Magana Protein [Mass/Vol] 6.8 g/dL Normal 6.4-8.2 [facility] Comment on above: Performed By: #### C VDTBH #### [facility] [address] [place] [address] Dr. David Magana Sodium [Moles/Vol] 129 mmol/L Critically low 136-145 [facility] Comment on above: Performed By: #### C VDTBH #### [facility] [address] [place] [address] Dr. David Magana Urea nitrogen [Mass/Vol] 65.0 mg/dL Critically high 7.0-18.0 [facility] Comment on above: Performed By: #### C VDTBH #### [facility] [address] [place] [address] Dr. David Magana Urea nitrogen/Creatinine [Mass ratio] 30.2 mg/mg Normal [facility] Comment on above: Performed By: #### C VDTBH #### [facility] [address] [place] [address] Dr. David Magana UA RANDOM W/MICROSCOPICon BACTERIA NONE SEEN Normal NONE SEEN [facility] Comment on above: Performed By: #### M G, BMP, PHOS #### [facility] [address] [place] [address] Dr. David Magana Bilirubin Ql (U) Negative Normal NEGATIVE [facility] Comment on above: Performed By: #### M G, BMP, PHOS #### [facility] [address] [address] [address] David Magana CAST NONE SEEN Normal NONE SEEN [facility] Comment on above: Performed By: #### M G, BMP, PHOS #### [facility] [address] [address] [address] David Magana Clarity (U) CLEAR Normal CLEAR [facility] Comment on above: Performed By: #### M G, BMP, PHOS #### [facility] [address] [place] [address] Dr. David Magana Color (U) LT. YELLOW Normal YELLOW [facility] Comment on above: Performed By: #### M G, BMP, PHOS #### [facility] [address] [place] [address] Dr. David Magana Crystals LM Nom (Urine sed) NONE SEEN Normal NONE SEEN [facility] Comment on above: Performed By: #### M G, BMP, PHOS #### [facility] [address] [place] [address] Dr. David Magana Epithelial cells LM Ql (Urine sed) RARE Normal NONE SEEN /RARE [facility] Comment on above: Performed By: #### M G, BMP, PHOS #### [facility] [address] [address] [address] David Magana Glucose Ql (U) 1000 mg/dl Abnormal NEGATIVE [facility] Comment on above: Performed By: #### M G, BMP, PHOS #### [facility] [address] [place] [address] Dr. David Magana Hemoglobin Ql (U) Negative Normal NEGATIVE [facility] Comment on above: Performed By: #### M G, BMP, PHOS #### [facility] [address] [place] [address] Dr. David Magana Ketones Ql (U) 15 mg/dl Abnormal NEGATIVE [facility] Comment on above: Performed By: #### M G, BMP, PHOS #### [facility] [address] [place] [address] Dr. David Magana LEUKOCYTES Negative Normal NEGATIVE [facility] Comment on above: Performed By: #### M G, BMP, PHOS #### [facility] [address] [place] [address] Dr. David Magana MUCOUS NONE SEEN Normal NONE SEEN [facility] Comment on above: Performed By: #### M G, BMP, PHOS #### [facility] [address] [place] [address] Dr. David Magana Nitrite Ql (U) Negative Normal NEGATIVE [facility] Comment on above: Performed By: #### M G, BMP, PHOS #### [facility] [address] [place] [address] Dr. David Magana pH (U) 5.5 [pH] Normal 5-9 [facility] Comment on above: Performed By: #### M G, BMP, PHOS #### [facility] [address] [place] [address] Dr. David Magana RBC NONE SEEN Abnormal 0-2 [facility] Comment on above: Performed By: #### M G, BMP, PHOS #### [facility] [address] [place] [address] Dr. David Magana SPEC GRAVITY <=1.005 Abnormal 1.005-<=1.025 [facility] Comment on above: Performed By: #### M G, BMP, PHOS #### [facility] [address] [place] [address] Dr. David Magana UA PROTEIN Negative Normal NEGATIVE/ TRACE [facility] Comment on above: Performed By: #### M G, BMP, PHOS #### [facility] [address] [place] [address] Dr. David Magana Urobilinogen Qn (U) 0.2 {Dionna'U}/dL Normal 0.2 - 1. 0 [facility] Comment on above: Performed By: #### ERICK Jacques PHOS #### [facility] [address] [place] [address] Dr. David Magana WBC NONE SEEN Normal NONE SEEN [facility] Comment on above: Performed By: #### M ERICK Faith PHOS #### [facility] [address] [address] [address] David Magana XR CHEST 1 Von 07-18-2022 XR CHEST 1 V EXAM: XR CHEST 1 V HISTORY: SHORTNESS OF BREATH COMPARISON: Chest radiographs dated 11/20/2020. TECHNIQUE: One view of the chest was obtained. FINDINGS: The cardiac silhouette is enlarged though stable in size. Aortic atherosclerotic disease is seen. The lungs are clear. There is no significant pneumothorax or pleural effusion. No acute osseous abnormality is seen. IMPRESSION: 1. Stable enlarged cardiac silhouette with clear lungs. Electronically authenticated by: Yefri DWYER Date: 2022-07-18 00:09 Normal [facility] CARDIAC BARRIE ADMITon 022 CK [Catalytic activity/Vol] 61 U/L Normal 39-308 [facility] Comment on above: Performed By: #### C BC #### [facility] [address] [place] [address] Dr. David Maagna CK.MB [Mass/Vol] 1.84 ng/mL Normal <=3.60 [facility] Comment on above: Performed By: #### C BC #### [facility] [address] [place] [address] Dr. David Magana HSTROP 9.4 pg/mL Normal 4.0-76.1 [facility] Comment on above: Result Comment: CUT- OFF POINTS HAVE BEEN ESTABLISHED BASED ON THE FOURTH UNIVERSAL DEFINITIONS OF MYOCARDIAL INFARCTION. THE UPPER REFERENCE LIMIT (URL) OF TROPONIN, DEFINED THE 99TH PERCENTILE OF cTnI DISTRIBUTION IN A REFERENCE POPULATION, HAS BEEN CONFIRMED THE DECISION THRESHOLD FOR MD DIAGNOSIS. Performed By: #### C BC #### [facility] [address] [place] [address] Dr. David Magana DUSTIN 533 ng/mL Critically high 16-96 [facility] Comment on above: Performed By: #### C BC #### [facility] [address] [place] [address] Dr. David Magana CBC AUTO DIFFon 07-17-2022 BASO # 0.0 103/ul Normal 0.0-0.1 [facility] Comment on above: Performed By: #### M ERICK Faith, PHOS #### [facility] [address] [place] [address] Dr. David Magana Basophils/100 WBC (Bld) 0.2 % Normal 0.2-2.0 [facility] Comment on above: Performed By: #### M ERICK Faith, PHOS #### [facility] [address] [place] [address] Dr. David Magana EO # 0.0 103/ul Normal 0.0-0.7 [facility] Comment on above: Performed By: #### ERICK Jacques, PHOS #### [facility] [address] [place] [address] Dr. David Magana Eosinophils/100 WBC (Bld) 0.1 % Critically low 0.9-7.0 [facility] Comment on above: Performed By: #### M ERICK Faith, PHOS #### [facility] [address] [place] [address] Dr. David Magana Erythrocyte distribution width (RBC) [Ratio] 13.2 % Normal 11.0-15.0 [facility] Comment on above: Performed By: #### M ERICK Faith, PHOS #### [facility] [address] [place] [address] Dr. David Magana Hematocrit (Bld) [Volume fraction] 43.1 % Normal 42.0-54.0 [facility] Comment on above: Performed By: #### M ERICK Faith, PHOS #### [facility] [address] [place] [address] Dr. David Magana Hemoglobin (Bld) [Mass/Vol] 14.5 g/dL Normal 14.0-18.0 [facility] Comment on above: Performed By: #### M G, BMP, PHOS #### [facility] [address] [place] [address] Dr. David Magana IG # 0.14 10e3/ul Critically high 0.00-0.03 [facility] Comment on above: Performed By: #### M G, BMP, PHOS #### [facility] [address] [place] [address] Dr. David Magana IG % 1.2 % Critically high 0.0-0.5 [facility] Comment on above: Performed By: #### M G, BMP, PHOS #### [facility] [address] [place] [address] Dr. David Magana LYMPH # 0.4 103/ul Critically low 1.2-3.8 [facility] Comment on above: Performed By: #### M G, BMP, PHOS #### [facility] [address] [place] [address] Dr. David Magana Lymphocytes/100 WBC (Bld) 3.4 % Critically low 20.5-60.0 [facility] Comment on above: Performed By: #### M G, BMP, PHOS #### [facility] [address] [place] [address] Dr. David Magana MANUAL DIFF REQ NO Normal [facility] Comment on above: Performed By: #### M G BMP, PHOS #### [facility] [address] [place] [address] Dr. David Magana MCH (RBC) [Entitic mass] 33.3 pg Normal 25.9-34.0 [facility] Comment on above: Performed By: #### M G, BMP, PHOS #### [facility] [address] [place] [address] Dr. David Magana MCHC (RBC) [Mass/Vol] 33.6 g/dL Normal 29.9-35.2 [facility] Comment on above: Performed By: #### M G, BMP, PHOS #### [facility] [address] [place] [address] Dr. David Magana MCV (RBC) [Entitic vol] 98.9 fL Critically high 80.0-94.0 [facility] Comment on above: Performed By: #### M ERICK Faith, PHOS #### [facility] [address] [place] [address] Dr. David Magana MONO # 1.1 103/ul Critically high 0.3-0.8 [facility] Comment on above: Performed By: #### M ERICK Faith, PHOS #### [facility] [address] [place] [address] Dr. David Magana Monocytes/100 WBC (Bld) 8.9 % Normal 1.7-12.0 [facility] Comment on above: Performed By: #### M ERICK Faith, PHOS #### [facility] [address] [place] [address] Dr. David Magana NEUT # 10.3 103/ul Critically high 1.4-6.5 [facility] Comment on above: Performed By: #### ERICK Jacques, PHOS #### [facility] [address] [place] [address] Dr. David Magana Neutrophils/100 WBC (Bld) 86.2 % Critically high 43.0-75.0 [facility] Comment on above: Performed By: #### M ERICK Faith, PHOS #### [facility] [address] [place] [address] Dr. David Magana Platelet mean volume (Bld) [Entitic vol] 11.1 fL Normal 9.5-13.5 [facility] Comment on above: Performed By: #### M Marcell BMP, PHOS #### [facility] [address] [place] [address] Dr. David Magana PLT 229 103/ul Normal 150-450 [facility] Comment on above: Performed By: #### M Marcell BMP, PHOS #### [facility] [address] [place] [address] Dr. David Magana RBC 4.36 106/ul Critically low 4.70-6.10 [facility] Comment on above: Performed By: #### M ERICK Faith PHOS #### [facility] [address] [place] [address] Dr. David Magana WBC 11.9 103/ul Critically high 4.0-11.0 [facility] Comment on above: Performed By: #### M ERICK Faith PHOS #### [facility] [address] [place] [address] Dr. David Magana PROF CHEM 8 (BAS METB)on Anion gap [Moles/Vol] 26.5 mmol/L Normal [facility] Comment on above: Performed By: #### C BC #### [facility] [address] [place] [address] Dr. David Magana Calcium [Mass/Vol] 8.2 mg/dL Critically low 8.5-10.1 [facility] Comment on above: Performed By: #### C BC #### [facility] [address] [place] [address] Dr. David Magana Chloride [Moles/Vol] 89 mmol/L Critically low 98-107 [facility] Comment on above: Performed By: #### C BC #### [facility] [address] [place] [address] Dr. David Magana CO2 [Moles/Vol] 14.5 mmol/L Critically low 21.0-32.0 [facility] Comment on above: Performed By: #### C BC #### [facility] [address] [place] [address] Dr. David Magana Creatinine [Mass/Vol] 2.78 mg/dL Critically high 0.70-1.30 [facility] Comment on above: Performed By: #### C BC #### [facility] [address] [place] [address] Dr. David Magana EGFR-AF NEW ZEALANDER 27 mL/min/1.73m2 Critically low >=60 [facility] Comment on above: Performed By: #### C BC #### [facility] [address] [place] [address] Dr. David Magana EGFR-NON AF NEW ZEALANDER 22 mL/min/1.73m2 Critically low >=60 [facility] Comment on above: Performed By: #### C BC #### [facility] [address] [address] [address] David Magana Glucose [Mass/Vol] 442 mg/dL Critically high 74-106 [facility] Comment on above: Performed By: #### C BC #### [facility] [address] [address] [address] David Magana Potassium [Moles/Vol] 6.0 mmol/L Critically high 3.5-5.1 [facility] Comment on above: Performed By: #### C BC #### [facility] [address] [place] [address] Dr. David Magana Sodium [Moles/Vol] 124 mmol/L Critically low 136-145 [facility] Comment on above: Performed By: #### C BC #### [facility] [address] [place] [address] Dr. David Magana Urea nitrogen [Mass/Vol] 73.0 mg/dL Critically high 7.0-18.0 [facility] Comment on above: Performed By: #### C BC #### [facility] [address] [place] [address] Dr. David Magana Urea nitrogen/Creatinine [Mass ratio] 26.3 mg/mg Normal [facility] Comment on above: Performed By: #### C BC #### [facility] [address] [place] [address] Dr. David Magana Covid-19 PCR (CVDTB)on 06-16 SARS-CoV-2 (COVID-19) RNA SULTANA+probe Ql (Unsp spec) Detected Critically abnormal NOT DETECTED [facility] Comment on above: Result Comment: This test is not yet approved or cleared by the [place] FDA. When there are no FDA-approved or cleared tests available, and other criteria are met, FDA can make tests available under an emergency access mechanism called an Emergency Use Authorization (EUA). The EUA for this test is supported by the Adjunct Professor Of English of Health and Human Service's (HHS's) declaration that circumstances exist to justify the emergency use of in vitro diagnostics for the detection and/or diagnosis of the virus that causes COVID-19. This EUA will remain in effect (meaning this test can be used) for the duration of the COVID-19 declaration justifying emergency of IVDs, unless it is terminated or revoked by FDA (after which the test may no longer be used). Performed By: #### M G, ERICK, PHOS #### [facility] [address] [address] [address] David Magana ECHOCARDIO M/2D COMPLETEon 0 07-01-2022 ECHOCARDIO M/2D COMPLETE Patient: NADIR HEREDIA Exam Date: 07/01/2022 : 1940 Gender:M Ordering : DR CLARIBEL PUGA M.D. Admission #: [id number] Family : DR VAN SUNG . Order #: [id number] CLICK HERE TO VIEW EXAM ECHOCARDIOGRAM REPORT PROCEDURE: CARDIO PULMONARY ECHOCARDIO M/2D COMP INDICATIONS: Aortic valve stenosis, Atrial fibrillation COMPARISON: None. DESCRIPTION: COMPLETE ECHOCARDIOGRAM Real-time transthoracic echocardiography with 2D, M-mode, spectral and color flow Doppler performed. QUALITY: Technical quality was adequate. 73 220# 128/72 HR 81 LEFT VENTRICLE: Normal chamber size. Proximal septal hypertrophy (sigmoid septum). LV EF: Global left ventricular systolic function is hyperdynamic with a visually estimated ejection fraction 75%. No regional wall motion abnormalities. DIASTOLIC: Not adequately assessed due to heart rhythm. ATRIAL SEPTUM: Inadequately seen. LEFT ATRIUM: Severe dilatation. RIGHT ATRIUM: Severe dilatation. RIGHT VENTRICLE: Moderate dilatation. Normal right ventricular systolic function. TRICUSPID VALVE: Normal mobility and thickness. Moderate regurgitation. Doppler studies reveal moderately (45-60) elevated right sided pressures. RVSP 60 mmHg MITRAL VALVE: No evidence of mitral valve stenosis. Moderate mitral annular calcification. Mild mitral regurgitation. The mitral valve opens well. AORTIC VALVE: Normal trileaflet appearance. Severely calcified aortic valve. Doppler velocity suggest moderate aortic stenosis. DVI 0.27. Mild aortic regurgitation. AORTIC ROOT: The aortic sinuses are mildly enlarged. The ascending aorta and arch appear normal. PULMONIC VALVE: Normal thickness and mobility. No stenosis. Mild regurgitation. PERICARDIUM: There is a small anterior and moderate posterior pericardial effusion. Clot formation noted in pericardial effusion. IVC: Collapses with inspirations. IVC is normal in size. CONCLUSION: 1. Global left ventricular systolic function is hyperdynamic; visually estimated ejection fraction is 70 to 75%. 2. No wall motion abnormalities. 3. Severe biatrial enlargement. 4. The right ventricle is moderately dilated with normal systolic function. 5. Moderate tricuspid regurgitation. 6. Moderately elevated right ventricular systolic pressure. 7. Mild mitral regurgitation. 8. Moderate aortic valve stenosis. 9. Mild aortic regurgitation. 10. The aortic sinuses are mildly enlarged. 11. Mild pulmonic regurgitation. 12. There is a small anterior and moderate posterior pericardial effusion. Clot formation noted in the effusion. No 2D echo evidence of chamber compression is seen. Adult Echocardiography Procedure Report Left Ventricle Left Atrium Mitral Valve Right Ventricle Aorta Aortic Valve Peak Velocity (Antegrade Flow): 3.13 m/s, 3.40 m/s, 3.34 m/s, 3.49 m/s, 3.49 m/s AoV Area (Peak Kyle): 1.23 cm2, 1.37 cm2, 1.23 cm2, 1.37 cm2, 1.23 cm2, 1.23 cm2, 1.23 cm2, 1.23 cm2 AoV Area (VTI): 1.43 cm2, 1.54 cm2 Peak Velocity(Antegrade Flow): 3.49 m/s, 3.49 m/s Peak Gradient(Antegrade Flow): 48.71 mm[Hg], 48.71 mm[Hg] Mean Velocity(Antegrade Flow): 2.15 m/s Mean Gradient(Antegrade Flow): 22.66 mm[Hg] Velocity Time Integral: 78.69 cm Tricuspid Valve Peak Velocity (Regurgitant Flow): 3.59 m/s, 3.55 m/s, 4.19 m/s Peak Velocity: 0.67 m/s, 0.50 m/s Pulmonic Valve PV Max Kyle (0.6 - 0.9 m per sec): 1.02 m/s PV Max Gradient: 4.15 mm[Hg] Right Atrium Dictated by: Rohini Traylor M.D. on 07/01/2022 at 16:21 Approved by: Rohini Traylor M.D. on 07/01/2022 at 16:27 [facility] Covmo-19 PCR ([facility])on SARS-CoV-2 (COVID-19) RNA SULTANA+probe Ql (Unsp spec) Not detected Normal NOT DETECTED [facility] Comment on above: Result Comment: When diagnostic testing is negative, the possibility of a false negative should be considered in the context of a patient's recent exposures and the presence of clinical signs and symptoms consistent with SARS-CoV-2. This test is not yet approved or cleared by the [place] FDA. When there are no FDA-approved or cleared tests available, and other criteria are met, FDA can make tests available under an emergency access mechanism called an Emergency Use Authorization (EUA). The EUA for this test is supported by the [place] of Health and Human Service's declaration that circumstances exist to justify the emergency use of in vitro diagnostics for the detection and/or diagnosis of the virus that causes COVID-19. This EUA will remain in effect for the duration of the COVID-19 declaration justifying emergency of IVDs, unless it is terminated or revoked by the FDA (after which the test may no longer be used). Performed By: #### C VDTBH #### [facility] [address] [place] [address] Dr. David Magana CREATININE URINEon URINE CREAT 14.70 mg/dL Critically low 20.00-300.00 [facility] Comment on above: Performed By: #### M G, ERICK, PHOS #### [facility] [address] [place] [address] Dr. David Magana GLYCOHEMOGLOBIN A1Con 2021 ADA RECOMMENDATION SEE BELOW Normal [facility] Comment on above: Result Comment: ADA RECOMMENDED LIMIT 4.0 - 6.0 ADA THERAPEUTIC TARGET < 7.0 ACTION SUGGESTED > 7.0 Performed By: #### A 1C #### [facility] [address] [place] [address] Dr. David Magana Glucose [Mass/Vol] 209 mg/dL Normal [facility] Comment on above: Performed By: #### A 1C #### [facility] [address] [place] [address] Dr. David Magana HbA1c (Bld) [Mass fraction] 8.9 % Critically high 4.5-6.2 [facility] Comment on above: Performed By: #### A 1C #### [facility] [address] [place] [address] Dr. David Magana MAGNESIUMon 06-08-2022 Magnesium [Mass/Vol] 2.3 mg/dL Normal 1.8-2.4 [facility] Comment on above: Performed By: #### M Marcell, BMP, PHOS #### [facility] [address] [place] [address] Dr. David Magana PHOSPHORUSon 06-08-2022 Phosphate [Mass/Vol] 3.5 mg/dL Normal 2.6-4.7 [facility] Comment on above: Performed By: #### M Marcell BMP, PHOS #### [facility] [address] [place] [address] Dr. David Magana PROF CHEM 8 (BAS METB)on Anion gap [Moles/Vol] 10.6 mmol/L Normal [facility] Comment on above: Performed By: #### M Marcell, BMP, PHOS #### [facility] [address] [place] [address] Dr. David Magana Calcium [Mass/Vol] 9.2 mg/dL Normal 8.5-10.1 [facility] Comment on above: Performed By: #### M Marcell, BMP, PHOS #### [facility] [address] [place] [address] Dr. David Magana Chloride [Moles/Vol] 102 mmol/L Normal 98-107 [facility] Comment on above: Performed By: #### M G, BMP, PHOS #### [facility] [address] [place] [address] Dr. David Magana CO2 [Moles/Vol] 30.1 mmol/L Normal 21.0-32.0 [facility] Comment on above: Performed By: #### M G, BMP, PHOS #### [facility] [address] [place] [address] Dr. David Magana Creatinine [Mass/Vol] 1.70 mg/dL Critically high 0.70-1.30 [facility] Comment on above: Performed By: #### M ERICK Faith, PHOS #### [facility] [address] [place] [address] Dr. David Magana EGFR-AF NEW ZEALANDER 47 mL/min/1.73m2 Critically low >=60 [facility] Comment on above: Performed By: #### ERICK Jacques, PHOS #### [facility] [address] [place] [address] Dr. David Magana EGFR-NON AF NEW ZEALANDER 39 mL/min/1.73m2 Critically low >=60 [facility] Comment on above: Performed By: #### ERICK Jacques, PHOS #### [facility] [address] [place] [address] Dr. David Magana Glucose [Mass/Vol] 197 mg/dL Critically high 74-106 [facility] Comment on above: Performed By: #### ERICK Jacques, PHOS #### [facility] [address] [place] [address] Dr. David Magana Potassium [Moles/Vol] 4.7 mmol/L Normal 3.5-5.1 [facility] Comment on above: Performed By: #### ERICK Jacques, PHOS #### [facility] [address] [place] [address] Dr. David Magana Sodium [Moles/Vol] 138 mmol/L Normal 136-145 [facility] Comment on above: Performed By: #### ERICK Jacques, PHOS #### [facility] [address] [place] [address] Dr. David Magana Urea nitrogen [Mass/Vol] 25.0 mg/dL Critically high 7.0-18.0 [facility] Comment on above: Performed By: #### ERICK Jacques, PHOS #### [facility] [address] [place] [address] Dr. David Magana Urea nitrogen/Creatinine [Mass ratio] 14.7 mg/mg Normal [facility] Comment on above: Performed By: #### ERICK Jacques, PHOS #### [facility] [address] [place] [address] Dr. David Magana PROTEIN RAND URINEon 022 UR PROT <5.0 Normal <=11.9 [facility] Comment on above: Performed By: #### C REAU, PROTU #### [facility] [address] [place] [address] Dr. David Magana BILIRUBIN CONJUGATED (DIRECT )on 04-28-2022 BILI, CONJUGATED 0.1 mg/dL Normal 0.0-0.2 [facility] Comment on above: Performed By: #### P OCGLUC #### [facility] [address] [place] [address] Dr. David Magana CBC AUTO DIFFon 04-28-2022 BASO # 0.1 103/ul Normal 0.0-0.1 [facility] Comment on above: Performed By: #### C VDTBH #### [facility] [address] [place] [address] Dr. David Magana Basophils/100 WBC (Bld) 0.7 % Normal 0.2-2.0 [facility] Comment on above: Performed By: #### C VDTBH #### [facility] [address] [place] [address] Dr. David Magana EO # 0.5 103/ul Normal 0.0-0.7 [facility] Comment on above: Performed By: #### C VDTBH #### [facility] [address] [place] [address] Dr. David Magana Eosinophils/100 WBC (Bld) 6.7 % Normal 0.9-7.0 [facility] Comment on above: Performed By: #### C VDTBH #### [facility] [address] [place] [address] Dr. David Magana Erythrocyte distribution width (RBC) [Ratio] 13.6 % Normal 11.0-15.0 [facility] Comment on above: Performed By: #### C VDTBH #### [facility] [address] [place] [address] Dr. David Magana Hematocrit (Bld) [Volume fraction] 45.9 % Normal 42.0-54.0 [facility] Comment on above: Performed By: #### C VDTBH #### [facility] [address] [place] [address] Dr. David Magana Hemoglobin (Bld) [Mass/Vol] 14.9 g/dL Normal 14.0-18.0 [facility] Comment on above: Performed By: #### C VDTBH #### [facility] [address] [place] [address] Dr. David Magana IG # 0.03 10e3/ul Normal 0.00-0.03 [facility] Comment on above: Performed By: #### C VDTBH #### [facility] [address] [place] [address] Dr. David Magana IG % 0.4 % Normal 0.0-0.5 [facility] Comment on above: Performed By: #### C VDTBH #### [facility] [address] [place] [address] Dr. David Magana LYMPH # 1.0 103/ul Critically low 1.2-3.8 [facility] Comment on above: Performed By: #### C VDTBH #### [facility] [address] [place] [address] Dr. David Magana Lymphocytes/100 WBC (Bld) 13.4 % Critically low 20.5-60.0 [facility] Comment on above: Performed By: #### C VDTBH #### [facility] [address] [place] [address] Dr. David Magana MANUAL DIFF REQ NO Normal [facility] Comment on above: Performed By: #### C VDTBH #### [facility] [address] [place] [address] Dr. David Magana MCH (RBC) [Entitic mass] 33.8 pg Normal 25.9-34.0 [facility] Comment on above: Performed By: #### C VDTBH #### [facility] [address] [place] [address] Dr. David Magana MCHC (RBC) [Mass/Vol] 32.5 g/dL Normal 29.9-35.2 [facility] Comment on above: Performed By: #### C VDTBH #### [facility] [address] [place] [address] Dr. David Magana MCV (RBC) [Entitic vol] 104.1 fL Critically high 80.0-94.0 [facility] Comment on above: Performed By: #### C VDTBH #### [facility] [address] [place] [address] Dr. David Magana MONO # 0.8 103/ul Normal 0.3-0.8 [facility] Comment on above: Performed By: #### C VDTBH #### [facility] [address] [place] [address] Dr. David Magana Monocytes/100 WBC (Bld) 10.2 % Normal 1.7-12.0 [facility] Comment on above: Performed By: #### C VDTBH #### [facility] [address] [place] [address] Dr. David Magana NEUT # 5.1 103/ul Normal 1.4-6.5 [facility] Comment on above: Performed By: #### C VDTBH #### [facility] [address] [place] [address] Dr. David Magana Neutrophils/100 WBC (Bld) 68.6 % Normal 43.0-75.0 [facility] Comment on above: Performed By: #### C VDTBH #### [facility] [address] [place] [address] Dr. David Magana Platelet mean volume (Bld) [Entitic vol] 11.3 fL Normal 9.5-13.5 [facility] Comment on above: Performed By: #### C VDTBH #### [facility] [address] [place] [address] Dr. David Magana PLT 185 103/ul Normal 150-450 [facility] Comment on above: Performed By: #### C VDTBH #### [facility] [address] [place] [address] Dr. David Magana RBC 4.41 106/ul Critically low 4.70-6.10 [facility] Comment on above: Performed By: #### C VDTBH #### [facility] [address] [address] [address] David Magana WBC 7.5 103/ul Normal 4.0-11.0 [facility] Comment on above: Performed By: #### C VDTBH #### [facility] [address] [address] [address] David Magana FREE T3on 04-28-2022 FREE T3 2.17 pg/mlL Critically low 2.18-3.98 [facility] Comment on above: Performed By: #### P OCGLUC #### [facility] [address] [place] [address] Dr. David Magana LIPID PROFILEon 04-28-2022 CHOL-HDL RATIO NORM SEE BELOW Normal [facility] Comment on above: Result Comment: 3.3 - 4.4 LOW RISK 4.4 - 7.1 AVERAGE RISK 7.1 - 11.0 MODERATE RISK >11.0 HIGH RISK Performed By: #### P OCGLUC #### [facility] [address] [place] [address] Dr. David Magana Cholesterol [Mass/Vol] 234 mg/dL Critically high <=200 [facility] Comment on above: Performed By: #### P OCGLUC #### [facility] [address] [place] [address] Dr. David Magana Cholesterol in HDL [Mass/Vol] 58 mg/dL Normal 40-60 [facility] Comment on above: Performed By: #### P OCGLUC #### [facility] [address] [address] [address] David Magana Cholesterol in LDL [Mass/Vol] 129.0 mg/dL Normal [facility] Comment on above: Performed By: #### P OCGLUC #### [facility] [address] [place] [address] Dr. David Magana Cholesterol.total/Cho lesterol in HDL [Mass ratio] 4.0 {ratio} Normal [facility] Comment on above: Performed By: #### P OCGLUC #### [facility] [address] [address] [address] David Magana HDL NORMAL > or = 60 mg/dl - LOW CARDIOVASCULAR RISK <40 mg/dl - HIGH CARDIOVASCULAR RISK Normal [facility] Comment on above: Performed By: #### P OCGLUC #### [facility] [address] [address] [address] David Magana LDL CALC NORMAL SEE BELOW Normal [facility] Comment on above: Result Comment: <100 mg/dl OPTIMAL 100 - 129 mg/dl NEAR OR ABOVE OPTIMAL 130 - 159 mg/dl BORDERLINE HIGH 160 - 189 mg/dl HIGH >190 mg/dl VERY HIGH Performed By: #### P OCGLUC #### [facility] [address] [address] [address] David Magana Triglyceride [Mass/Vol] 235 mg/dL Critically high <=150 [facility] Comment on above: Performed By: #### P OCGLUC #### [facility] [address] [address] [address] David Magana VLDL CALC 47.0 mg/dL Normal [facility] Comment on above: Performed By: #### P OCGLUC #### [facility] [address] [address] [address] David Magana PROF 14(COMP METB)on 022 Albumin [Mass/Vol] 3.2 g/dL Critically low 3.4-5.0 [facility] Comment on above: Performed By: #### P OCGLUC #### [facility] [address] [place] [address] Dr. David Magana Albumin/Globulin [Mass ratio] 0.9 {ratio} Normal [facility] Comment on above: Performed By: #### P OCGLUC #### [facility] [address] [address] [address] David Magana ALP [Catalytic activity/Vol] 77 U/L Normal 46-116 [facility] Comment on above: Performed By: #### P OCGLUC #### [facility] [address] [place] [address] Dr. David Magana ALT [Catalytic activity/Vol] 24 U/L Normal 16-63 [facility] Comment on above: Performed By: #### P OCGLUC #### [facility] [address] [address] [address] David Magana Anion gap [Moles/Vol] 13.1 mmol/L Normal [facility] Comment on above: Performed By: #### P OCGLUC #### [facility] [address] [address] [address] David Magana AST [Catalytic activity/Vol] 13 U/L Critically low 15-37 [facility] Comment on above: Performed By: #### P OCGLUC #### [facility] [address] [address] [address] David Magana Bilirubin [Mass/Vol] 0.3 mg/dL Normal 0.2-1.0 [facility] Comment on above: Performed By: #### P OCGLUC #### [facility] [address] [address] [address] David aMgana Calcium [Mass/Vol] 8.8 mg/dL Normal 8.5-10.1 [facility] Comment on above: Performed By: #### P OCGLUC #### [facility] [address] [address] [address] David Magana Chloride [Moles/Vol] 106 mmol/L Normal 98-107 [facility] Comment on above: Performed By: #### P OCGLUC #### [facility] [address] [address] [address] David Magana CO2 [Moles/Vol] 27.5 mmol/L Normal 21.0-32.0 [facility] Comment on above: Performed By: #### P OCGLUC #### [facility] [address] [address] [address] David Magana Creatinine [Mass/Vol] 1.62 mg/dL Critically high 0.70-1.30 [facility] Comment on above: Performed By: #### P OCGLUC #### [facility] [address] [address] [address] David Magana EGFR-AF NEW ZEALANDER 50 mL/min/1.73m2 Critically low >=60 [facility] Comment on above: Performed By: #### P OCGLUC #### [facility] [address] [address] [address] David Magana EGFR-NON AF NEW ZEALANDER 41 mL/min/1.73m2 Critically low >=60 [facility] Comment on above: Performed By: #### P OCGLUC #### [facility] [address] [address] [address] David Magana Globulin (S) [Mass/Vol] 3.4 g/dL Normal [facility] Comment on above: Performed By: #### P OCGLUC #### [facility] [address] [address] [address] David Magana Glucose [Mass/Vol] 206 mg/dL Critically high 74-106 [facility] Comment on above: Performed By: #### P OCGLUC #### [facility] [address] [address] [address] David Magana Potassium [Moles/Vol] 4.6 mmol/L Normal 3.5-5.1 [facility] Comment on above: Performed By: #### P OCGLUC #### [facility] [address] [address] [address] David Magana Protein [Mass/Vol] 6.6 g/dL Normal 6.4-8.2 [facility] Comment on above: Performed By: #### P OCGLUC #### [facility] [address] [address] [address] David Magana Sodium [Moles/Vol] 142 mmol/L Normal 136-145 [facility] Comment on above: Performed By: #### P OCGLUC #### [facility] [address] [address] [address] David Magana Urea nitrogen [Mass/Vol] 26.0 mg/dL Critically high 7.0-18.0 [facility] Comment on above: Performed By: #### P OCGLUC #### [facility] [address] [address] [address] David Magana Urea nitrogen/Creatinine [Mass ratio] 16.0 mg/mg Normal [facility] Comment on above: Performed By: #### P OCGLUC #### [facility] [address] [address] [address] David Magana T4on 04-28-2022 T4 [Mass/Vol] 7.70 ug/dL Normal 4.50-12.10 [facility] Comment on above: Performed By: #### P OCGLUC #### [facility] [address] [address] [address] David Magana TSHon 04-28-2022 TSH 2.187 uIU/mL Normal 0.358-3.740 [facility] Comment on above: Performed By: #### P OCGLUC #### [facility] [address] [place] [address] Dr. David Magana TSH RANGE SEE BELOW Normal [facility] Comment on above: Result Comment: <0.3 4 UIU/ml HYPERTHYROID 0.34-5.60 UIU/ml EUTHYROID >5.60 UIU/ml HYPOTHYROID Performed By: #### P OCGLUC #### [facility] [address] [place] [address] Dr. David Magana Vital Signs Date Time Vital Sign Value Performing Clinician Facility 10-14-2023 14:33-0500 Diastolic blood pressure 70 mm[Hg] Nereyda Gomez [facility] 10-14-2023 14:33-0500 Mean blood pressure 93 mm[Hg] Nereyda Gomez [facility] 10-14-2023 14:33-0500 Systolic blood pressure 138 mm[Hg] Nereyda Gomez [facility] 10-14-2023 14:18-0500 Blood Pressure Location Nereyda Gomez [facility] 10-14-2023 14:18-0500 Body temperature 97.88 [degF] Nereyda Patricia [facility] 10-14-2023 14:18-0500 Diastolic blood pressure 73 mm[Hg] Nereyda Patricia [facility] 10-14-2023 14:18-0500 Heart rate 91 /min Nereyda Patricia [facility] 10-14-2023 14:18-0500 Systolic blood pressure 143 mm[Hg] Nereyda Patricia [facility] 10-01-2023 12:13-0500 Diastolic blood pressure 66 mm[Hg] Nereyda Patricia [facility] 10-01-2023 12:13-0500 Mean blood pressure 104 mm[Hg] Nereyda Patricia [facility] 10-01-2023 12:13-0500 Systolic blood pressure 179 mm[Hg] Nereyda Patricia [facility] 10-01-2023 12:10-0500 Blood Pressure Location Nereyda Patricia [facility] 10-01-2023 12:10-0500 Body temperature 98.42 [degF] Nereyda Patricia [facility] 10-01-2023 12:10-0500 Diastolic blood pressure 77 mm[Hg] Nereyda Patricia [facility] 10-01-2023 12:10-0500 Heart rate 81 /min Nereyda Patricia [facility] 10-01-2023 12:10-0500 Respiratory rate 14 /min Nereyda Patricia [facility] 11-17-2023 12:10-0500 Systolic blood pressure 168 mm[Hg] Nereyda Patricia [facility] 06-10-2023 10:43-0400 Diastolic blood pressure 64 mm[Hg] Nereyda Patricia [facility] 06-10-2023 10:43-0400 Heart rate 76 /min Nereyda Patricia [facility] 06-10-2023 10:43-0400 Respiratory rate 16 /min Nereyda Patricia [facility] 06-10-2023 10:43-0400 SaO2% (BldA) [Mass fraction] 95 % Nereyda Patricia [facility] 06-10-2023 10:43-0400 Systolic blood pressure 121 mm[Hg] Nereyda Patricia [facility] 04-13-2023 14:19-0400 Diastolic blood pressure 70 mm[Hg] Nereyda Patricia [facility] 04-13-2023 14:19-0400 Mean blood pressure 95 mm[Hg] Nereyda Patricia [facility] 04-13-2023 14:19-0400 Systolic blood pressure 146 mm[Hg] Nereyda Patricia [facility] 04-13-2023 14:15-0400 Blood Pressure Location Nereyda Patricia [facility] 04-13-2023 14:15-0400 Body temperature 97.7 [degF] Nereyda Patricia [facility] 04-13-2023 14:15-0400 Diastolic blood pressure 87 mm[Hg] Nereyda Patricia [facility] 04-13-2023 14:15-0400 Heart rate 70 /min Nereydabruce JoyaPatricia [facility] 04-13-2023 14:15-0400 Systolic blood pressure 150 mm[Hg] Nereyda Patricia [facility] 06-09-2022 10:02-0400 Body temperature 96.98 [degF] Nereydabruce JoyaPatricia [facility] 06-09-2022 10:02-0400 Diastolic blood pressure 75 mm[Hg] Nereydabruce JoyaPatricia [facility] 06-09-2022 10:02-0400 Heart rate 72 /min Nereydabruce JoyaPatricia [facility] 06-09-2022 10:02-0400 SaO2% (BldA) [Mass fraction] 97 % Nereydabruce JoyaPatricia [facility] 06-09-2022 10:02-0400 Systolic blood pressure 139 mm[Hg] Nereyda Joyametz [facility] 05-11-2022 11:30-0400 Diastolic blood pressure 102 mm[Hg] Bender SALAM [facility] 05-11-2022 11:30-0400 Heart rate 86 /min Bender SALAM [facility] 05-11-2022 11:30-0400 Respiratory rate 15 /min Bender SALAM [facility] 05-11-2022 11:30-0400 SaO2% (BldA) [Mass fraction] 95 % Bender SALAM [facility] 05-11-2022 11:30-0400 Systolic blood pressure 172 mm[Hg] Bender SALAM [facility] 05-11-2022 11:15-0400 Diastolic blood pressure 88 mm[Hg] Bender SALAM [facility] 05-11-2022 11:15-0400 Heart rate 86 /min Bender SALAM [facility] 05-11-2022 11:15-0400 Respiratory rate 18 /min Bender SALAM [facility] 05-11-2022 11:15-0400 SaO2% (BldA) [Mass fraction] 97 % Bender SALAM [facility] 05-11-2022 11:15-0400 Systolic blood pressure 170 mm[Hg] Bender SALAM [facility] 05-11-2022 11:10-0400 Diastolic blood pressure 108 mm[Hg] Bender SALAM [facility] 05-11-2022 11:10-0400 Heart rate 85 /min Bender SALAM [facility] 05-11-2022 11:10-0400 Respiratory rate 14 /min Bender SALAM [facility] 05-11-2022 11:10-0400 SaO2% (BldA) [Mass fraction] 97 % Bender SALAM [facility] 05-11-2022 11:10-0400 Systolic blood pressure 157 mm[Hg] Bender SALAM [facility] 05-11-2022 11:02-0400 Body temperature 97.34 [degF] Bender SALAM [facility] 05-11-2022 10:27-0400 Blood Pressure Location Bender SALAM [facility] 05-11-2022 10:23-0400 Blood Pressure Location Napoleon SALAM [facility] 05-11-2022 10:23-0400 Body temperature 98.24 [degF] Bender SALAM [facility] 03-31-2022 09:53-0400 Blood Pressure Location Nereyda Gomez [facility] 03-31-2022 09:53-0400 Body temperature 97.7 [degF] Nereyda Donatoz [facility] 03-31-2022 09:53-0400 Diastolic blood pressure 72 mm[Hg] Nereydabruce JoyaPatricia [facility] 03-31-2022 09:53-0400 Heart rate 73 /min Nereyda Joyametz [facility] 03-31-2022 09:53-0400 SaO2% (BldA) [Mass fraction] 96 % Nereydabruce JoyaPatricia [facility] 03-31-2022 09:53-0400 Systolic blood pressure 129 mm[Hg] Nereydabruce JoyaPatricia [facility] Encounters Encounter Date Encounter Type Care Provider Facility Start: 02-10-2024 End: 02-10-2024 ambulatory ROBINSON CHICAS Not Available Start: 02-02-2024 ambulatory Nereyda Gomez Facili ty[facility] Start: 01-11-2024 End: 01-11-2024 ambulatory BARRIE BRASWELL Not Available Start: 12-09-2023 ambulatory Nereyda Joyametz Facili ty:[facility] Start: 12-02-2023 End: 12-02-2023 ambulatory ROBINSON Marroquin AVIVA Not Available Start: 11-17-2023 End: 11-17-2023 ambulatory DANA [facility] Start: 10-14-2023 End: 10-15-2023 ambulatory Nereyda Marroquin Patricia Facility:[facility] Start: 10-14-2023 End: 10-14-2023 Patient encounter procedure Nereyda Joyametz [facility] Start: 10-01-2023 End: 10-02-2023 ambulatory Nereydabruce Joyametz [place] Start: 10-01-2023 End: 10-02-2023 ambulatory Nereyda A Patricia Facility:[facility] Start: 10-01-2023 End: 10-01-2023 Patient encounter procedure Nereyda A Patricia [facility] Start: 10-01-2023 End: 10-01-2023 Patient encounter procedure Nereyda Donatoz [facility] Start: 09-17-2023 End: 09-17-2023 ambulatory [facility] Start: 09-13-2023 End: 09-14-2023 ambulatory Nereyda A Patricia Facility:[facility] Start: 09-13-2023 End: 09-13-2023 Patient encounter procedure Nereyda A Patricia [facility] Start: 08-31-2023 End: 09-01-2023 ambulatory [facility] Start: 07-21-2023 End: 07-21-2023 ambulatory [facility] Start: 06-14-2023 End: 06-14-2023 ambulatory RYDER PAYAN [facility] Start: 06-10-2023 End: 06-11-2023 ambulatory Nereyda Gomez Facility:[facility] Start: 06-10-2023 End: 06-10-2023 Patient encounter procedure Nereyda Cara Patricia [facility] Start: 05-24-2023 End: 05-24-2023 ambulatory [facility] Start: 04-15-2023 End: 04-16-2023 ambulatory Nereyda Cara Patricia Facility[place] Start: 04-15-2023 End: 04-15-2023 Lab Drop off Nereyda Cara Patricia [facility] Start: 04-13-2023 End: 04-14-2023 ambulatory Nereyda Cara Patricia Facility[facility] Start: 04-13-2023 End: 04-13-2023 Patient encounter procedure Nereyda A Patricia [facility] Start: 04-07-2023 End: 04-07-2023 ambulatory RUTHIE LINDA [facility] Start: 03-24-2023 End: 03-25-[address] RUTHIE LINDA Facility:[facility] Start: 03-08-2023 ambulatory Francisco FRYE Facility :[facility] Start: 02-27-2023 End: 02-28-[address] VAN SUNG . Facility:[facility] Start: 01-06-2023 End: 01-06-2023 ambulatory RUTHIE LINDA [facility] Start: 12-28-2022 End: 12-29-[address] RUTHIE LINDA Facility:[facility] Start: 11-16-2022 End: 11-17-[address] RUTHIE LINDA Facility:[facility] Start: 11-02-2022 End: 11-03-[address] VAN SUNG . Facility:[facility] Start: 07-18-2022 End: 07-22-2022 Evaluation and management of inpatient DR VAN SUNG . Facility:[facility] Start: 07-13-2022 End: 07-13-[address] VAN SUNG . Facility:[facility] Start: 07-01-2022 End: 07-02-[address] CLARIBEL PUGA Facility:[facility] Start: 06-16-2022 End: 06-16-[address] VAN SUNG . Facility:[facility] Start: 06-09-2022 End: 06-09-2022 Patient encounter procedure Nereyda Gomez [facility] Start: 06-08-2022 End: 06-09-2022 ambulatory GAMALIEL DALEY Facility:[facility] Start: 05-11-2022 End: 05-11-2022 Patient encounter procedure Napoleon MENDEZ [facility] Start: 04-28-2022 End: 04-29-[address] VAN SUNG . Facility:[facility] Start: 03-31-2022 End: 03-31-2022 Patient encounter procedure Nereyda Gomez [facility] Start: 2019 End: 02-07-2019 Patient encounter procedure DEFAULT PHYSICIAN Facility:[facility] Procedures Date Procedure Procedure Detail Performing Clinician Start: 05-11-2022 Colonoscopy Napoleon Fernandez Comment on above: 2 polyps, diveticulo sis, IH Start: 01-11-2017 Cardioversion Nereyda vaughan Back structure, excl uding neck (body structure) Nereyda Gomez Cholecystectomy Nereyda mcdonough Colonoscopy Nereyda Gomez History of hernia repair Ave Gomez Tonsillectomy Nereyda Gomez Immunizations Immunization Date Immunization Notes Care Provider Fa cility 10-21-2022 SARS-CoV-2 (COVID-19 ) [id number] Nereyda Gomez [facility] Comment on above: Result Comment: 2022: [id number] 08-26-2021 SARS-CoV-2 (COVID-19 ) mRNA BNT-162b2 vax Nereyda Gomez [facility] 01-01-2021 SARS-CoV-2 (COVID-19 ) mRNA BNT-162b2 vax Nereyda Gomez [facility] 12-09-2020 SARS-CoV-2 (COVID-19 ) mRNA BNT-162b2 vax Nereyda Gomez [facility] 08-27-2020 influenza virus vaccine, unspecified formulation Nereyda Gomez [facility] 08-16-2017 pneumococcal conjugate vaccine, 13 valent Nereyda Gomez [facility] 08-05-2017 influenza, unspecified formulation Nereyda Gomez [facility] 09-20-2015 zoster vaccine, live Nereyda St schillingetz [facility] NEGATED: Highlighted row has not occurred!10-13-2023 influenza virus vaccine, unspecified formulation Nereyda Joyametz [facility] NEGATED: Highlighted row has not occurred!09-29-2023 influenza virus vaccine, unspecified formulation Nereyda Gomez [facility] Payers Date Payer Category Payer Unknown [id number] 1960 Medicare [id number] 1940 Unknown [id number] 2.16.8 [id number] 1939 Unknown [id number] 2.16.84 0.1.142898.3.579.2.593 1939 Unknown [id number] 2.16.84 0.1.998322.3.579.2.593 1939 Unknown [id number] 2.16.84 0.1.570807.3.579.2.593 1939 Unknown [id number] 2.16.84 0.1.482479.3.579.2.593 1939 Unknown [id number] 2.16.84 0.1.324693.3.579.2.593 1939 Unknown [id number] 2.16.84 0.1.681262.3.579.2.593 1939 Unknown [id number] 2.16.84 0.1.794460.3.579.2.593 1939 Unknown [id number] 2.16.84 0.1.940226.3.579.2.593 1939 Unknown [id number] 2.16.84 0.1.986668.3.579.2.593 1939 Unknown [id number] 2.16.84 0.1.941399.3.579.2.593 1939 Unknown [id number] 2.16.84 0.1.932227.3.579.2.593 1939 Unknown [id number] 2.16.8 40.1.735687.3.579.2.727 1939 Unknown [id number] 2.16.8 40.1.284875.3.579.2.727 1939 Unknown [id number] 2.16.8 40.1.161605.3.579.2.727 1939 Unknown [id number] 2.16.8 40.1.937666.3.579.2.727 1939 Unknown [id number] 2.16.8 40.1.876496.3.579.2.727 1939 Unknown [id number] 2.16.8 40.1.144871.3.579.2.727 1939 Unknown [id number] 2.16.8 40.1.860725.3.579.2.727 1939 Unknown [id number] 2.16.8 40.1.479620.3.579.2.727 1939 Unknown [id number] 2.16.8 40.1.382513.3.579.2.727 1939 Unknown [id number] 2.16.8 40.1.139859.3.579.2.727 1939 Unknown [id number] 2.16.8 40.1.198815.3.579.2.727 1939 Unknown [id number] 2.16.84 0.1.371696.3.579.2.1259 1939 Unknown [id number] 2.16.84 0.1.917955.3.579.2.1259 1939 Unknown [id number] 2.16.84 0.1.756073.3.579.2.1259 Unknown Social History Date Type Detail Facility Start: 03-31-2022 End: 10-14-2023 Tobacco smoking status Ex-smoker (finding) [facility] Sex Assigned At Male [facility] Functional Status Date Assessment Result Facility 10-14-2023 Functional Status N/A [facility] 10-01-2023 Functional Status [facility] 04[facility]13-[facility]23 [facility] Status N[facility] 06-09-2022 Functional Status N[facility]A [facility] 05-11-2022 Functional Status N/A [facility] Clinical Notes 03-31-2022 to 11-17-2023 Note Date & Type Note Facility 11-17-2023 Note Attestation signed by Ruthie Linda MD at 11/21/2023 6:55 PM I saw, interviewed, examined and evaluated the patient with Nephrology fellow, Dr. Dana Aparicio. I participated in the medical management of the patient. I reviewed the fellow's note and agree with the fellow's documentation in the note. Ruthie Linda MD Faculty, Division of Nephrology, Department of Medicine, [facility]. [facility] Patient: Nadir Heredia; 83 y.o. Visit date: 11/17/23 Reason for today's visit: Follow up for CKD stage 3, Hypertension, Edema/ Fluid overload, and Electrolytes disturbances SUBJECTIVE: BACKGROUND: Nadir Heredia is a 83 y.o. male has a past medical history of Atrial fibrillation (CMS/HCC), CHF (congestive heart failure) ([facility]), Chronic kidney disease, COPD (chronic obstructive pulmonary disease) ([facility]), Coronary artery disease, Diabetes mellitus ([facility]), Heart valve disease, Hypertension, Pericardial effusion, and Sleep apnea. History of paroxysmal atrial fibrillation maintained on anticoagulation with Eliquis, aortic stenosis, renal artery stenosis, and hypertension. He had stenting of the left renal artery from the left radial approach on 05/01/2015 (Express SD 6 mm x 18 mm stent). He was admitted to the [facility] in August 2022 due to hyponatremia, hyperkalemia and acute kidney injury, leukocytosis secondary to COVID-19 causing dehydration Today 11/17/23 patient presents for a follow-up visit: Mild dyspnea on moderate exertion. Significant weight loss over 3 months, but has a good appetite. Constipation on Miralax No fatigue or lack of energy. No leg swelling or edema. No changes in appetite or weight. No dizziness or lightheadedness on standing or walking. No recent illness, hospitalizations or medications changes Blood pressure & heart rate: Visit Vitals BP 156/79 (BP Location: Left arm, Patient Position: Sitting, BP Cuff Size: Large adult) Pulse 85 Resp 16 On Labetalol 150 mg bid , Hydralazine 100 mg bid & Clonidine 0.1 mg bid. He also takes Lasix down to 40 mg in AM from 60 mg daily. Pertinent labs/images: See Assessment & Plan ---- Review of systems In addition to above: Review of Systems Constitutional: Positive for unexpected weight change (weight loss). Negative for activity change, appetite change and fatigue. HENT: Negative for congestion, facial swelling and trouble swallowing. Eyes: Negative for photophobia and visual disturbance. Respiratory: Positive for shortness of breath (with moderate exertion). Negative for cough. Cardiovascular: Negative for chest pain, palpitations and leg swelling. Gastrointestinal: Positive for constipation. Negative for abdominal distention, abdominal pain, diarrhea, rectal pain and vomiting. Endocrine: Negative for polydipsia, polyphagia and polyuria. Genitourinary: Negative for decreased urine volume, difficulty urinating, dysuria, flank pain, frequency, hematuria, scrotal swelling and urgency. Musculoskeletal: Negative for arthralgias, joint swelling and myalgias. Skin: Negative for color change, rash and wound. Allergic/Immunologic: Negative for immunocompromised state. Neurological: Negative for dizziness, tremors, speech difficulty, weakness, numbness and headaches. Psychiatric/Behavioral: Negative for dysphoric mood and sleep disturbance. The patient is not nervous/anxious. OBJECTIVE: Visit Vitals BP 156/79 (BP Location: Left arm, Patient Position: Sitting, BP Cuff Size: Large adult) Pulse 85 Resp 16 Ht 1.854 m (6' 1 ) Wt 86.3 kg (190 lb 3.2 oz) BMI 25.09 kg/m??? Smoking Status Former BSA 2.11 m??? Physical Exam Constitutional: General: He is not in acute distress. Appearance: Normal appearance. HENT: Head: Normocephalic and atraumatic. Eyes: General: No scleral icterus. Extraocular Movements: Extraocular movements intact. Cardiovascular: Rate and Rhythm: Normal rate and regular rhythm. Heart sounds: No murmur heard. Pulmonary: Breath sounds: Normal breath sounds. No wheezing or rales. Abdominal: General: There is no distension. Tenderness: There is no abdominal tenderness. There is no right CVA tenderness or left CVA tenderness. Musculoskeletal: General: No tenderness. Normal range of motion. Cervical back: Neck supple. No tenderness. Right lower leg: Edema present. Left lower leg: Edema present. Lymphadenopathy: Cervical: No cervical adenopathy. Skin: Coloration: Skin is not jaundiced or pale. Findings: No erythema, lesion or rash. Neurological: General: No focal deficit present. Mental Status: He is alert and oriented to person, place, and time (more content not included)... [facility] 10-14-2023 Hospital Discharge instructions Patient Education 10/14/2023 15:05:48 Constipation, Adult Constipation, Adult Constipation is when a person has fewer than three bowel movements in a week, has difficulty having a bowel movement, or has stools (feces) that are dry, hard, or larger than normal. Constipation may be caused by an underlying condition. It may become worse with age if a person takes certain medicines and does not take in enough fluids. Follow these instructions at home: Eating and drinking Eat foods that have a lot of fiber, such as beans, whole grains, and fresh fruits and vegetables. Limit foods that are low in fiber and high in fat and processed sugars, such as fried or sweet foods. These include malawian fries, hamburgers, cookies, candies, and soda. Drink enough fluid to keep your urine pale yellow. General instructions Exercise regularly or as told by your health care provider. Try to do 150 minutes of moderate exercise each week. Use the bathroom when you have the urge to go. Do not hold it in. Take cplx-sey-vghquvq and prescription medicines only as told by your health care provider. This includes any fiber supplements. During bowel movements: ?Practice deep breathing while relaxing the lower abdomen. ?Practice pelvic floor relaxation. Watch your condition for any changes. Let your health care provider know about them. Keep all follow-up visits as told by your health care provider. This is important. Contact a health care provider if: You have pain that gets worse. You have a fever. You do not have a bowel movement after 4 days. You vomit. You are not hungry or you lose weight. You are bleeding from the opening between the buttocks (anus). You have thin, pencil-like stools. Get help right away if: You have a fever and your symptoms suddenly get worse. You leak stool or have blood in your stool. Your abdomen is bloated. You have severe pain in your abdomen. You feel dizzy or you faint. Summary Constipation is when a person has fewer than three bowel movements in a week, has difficulty having a bowel movement, or has stools (feces) that are dry, hard, or larger than normal. Eat foods that have a lot of fiber, such as beans, whole grains, and fresh fruits and vegetables. Drink enough fluid to keep your urine pale yellow. Take jucn-bks-hfunbvq and prescription medicines only as told by your health care provider. This includes any fiber supplements. This information is not intended to replace advice given to you by your health care provider. Make sure you discuss any questions you have with your health care provider. Document Revised: 09/18/2020 Document Reviewed: 09/18/2020 [employer] Patient Education 2022 [employer]. Follow Up Care 10/01/2023 12:57:46 With:Nereyda Gomez CNP Address: When:1 month [facility] 10-01-2023 Hospital Discharge instructions Patient Education 10/01/2023 12:06:47 High-Fiber Eating Plan High-Fiber Eating Plan Fiber, also called dietary fiber, is a type of carbohydrate. It is found foods such as fruits, vegetables, whole grains, and beans. A high-fiber diet can have many health benefits. Your health care provider may recommend a high-fiber diet to help: Prevent constipation. Fiber can make your bowel movements more regular. Lower your cholesterol. Relieve the following conditions: ?Inflammation of veins in the anus (hemorrhoids). ?Inflammation of specific areas of the digestive tract (uncomplicated diverticulosis). ?A problem of the large intestine, also called the colon, that sometimes causes pain and diarrhea (irritable bowel syndrome, or IBS). Prevent overeating as part of a weight-loss plan. Prevent heart disease, type 2 diabetes, and certain cancers. What are tips for following this plan? Reading food labels Check the nutrition facts label on food products for the amount of dietary fiber. Choose foods that have 5 grams of fiber or more per serving. The goals for recommended daily fiber intake include: ?Men (age 50 or younger): 34 38 g. ?Men (over age 50): 28 34 g. ?Women (age 50 or younger): 25 28 g. ?Women (over age 50): 22 25 g. Your daily fiber goal is g. Shopping Choose whole fruits and vegetables instead of processed forms, such as apple juice or applesauce. Choose a wide variety of high-fiber foods such as avocados, lentils, oats, and kidney beans. Read the nutrition facts label of the foods you choose. Be aware of foods with added fiber. These foods often have high sugar and sodium amounts per serving. Cooking Use whole-grain flour for baking and cooking. Cook with brown rice instead of white rice. Meal planning Start the day with a breakfast that is high in fiber, such as a cereal that contains 5 g of fiber or more per serving. Eat breads and cereals that are made with whole-grain flour instead of refined flour or white flour. Eat brown rice, bulgur wheat, or millet instead of white rice. Use beans in place of meat in soups, salads, and pasta dishes. Be sure that half of the grains you eat each day are whole grains. General information You can get the recommended daily intake of dietary fiber by: ?Eating a variety of fruits, vegetables, grains, nuts, and beans. ?Taking a fiber supplement if you are not able to take in enough fiber in your diet. It is better to get fiber through food than from a supplement. Gradually increase how much fiber you consume. If you increase your intake of dietary fiber too quickly, you may have bloating, cramping, or gas. Drink plenty of water to help you digest fiber. Choose high-fiber snacks, such as berries, raw vegetables, nuts, and popcorn. What foods should I eat? Fruits Berries. Pears. Apples. Oranges. Avocado. Prunes and raisins. Dried figs. Vegetables Sweet potatoes. Spinach. Kale. Artichokes. Cabbage. Broccoli. Cauliflower. Green peas. Carrots. Squash. Grains Whole-grain breads. Multigrain cereal. Oats and oatmeal. Brown rice. Barley. Bulgur wheat. Millet. Quinoa. Bran muffins. Popcorn. [place] wafer crackers. Meats and other proteins [employer] beans, kidney beans, and mendez beans. Soybeans. Split peas. Lentils. Nuts and seeds. Dairy Fiber-fortified yogurt. Beverages Fiber-fortified soy milk. Fiber-fortified orange juice. Other foods Fiber bars. The items listed above may not be a complete list of recommended foods and beverages. Contact a dietitian for more information. What foods should I avoid? Fruits Fruit juice. Cooked, strained fruit. Vegetables Fried potatoes. Canned vegetables. Well-cooked vegetables. Grains White bread. Pasta made with refined flour. White rice. Meats and other proteins Fatty cuts of meat. Fried chicken or fried fish. Dairy Milk. Yogurt. Cream cheese. Sour cream. Fats and oils [place]. Beverages Soft drinks. Other foods Cakes and pastries. The items listed above may not be a complete list of foods and beverages to avoid. Talk with your dietitian about what choices are best for you. Summary Fiber is a type of carbohydrate. It is found in foods such as fruits, vegetables, whole grains, and beans. A high-fiber diet has many benefits. It can help to prevent constipation, lower blood cholesterol, aid weight loss, and reduce your risk of heart disease, diabetes, and certain cancers. Increase your intake of fiber gradually. Increasing fiber too quickly may cause cramping, bloating, and gas. Drink plenty of water while you increase the amount of fiber you consume. The best sources of fiber include whole fruits and vegetables, whole grains, nuts, seeds, and beans. This information is not intended to replace advice given to you by your health care provider. Make sure you discuss any questions you have with your health care provider. Document Revised: 03/06/2021 Document Reviewed: 03/06/2021 [employer] Patient Education 2022 [employer]. Follow Up Care 09/20/2023 08:43:45 With:Nereyda Gomez CNP Address:Unknown When: Unknown [facility] 09-17-2023 Note [place] [facility] Subjective Nadir Heredia is a 83 y.o. 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 He is an 83-year-old man with paroxysmal atrial fibrillation maintained on anticoagulation with Eliquis, aortic stenosis, renal artery stenosis, and hypertension. He had stenting of the left renal artery from the left radial approach on 05/01/2015 (Express SD 6 mm x 18 mm stent). He cannot take statins due to liver side effects. On 09/04/2019 he was having symptoms of shortness of breath on exertion and lower extremity edema. His echo had shown severely elevated RVSP and pericardial effusion. He responded to increasing diuretic therapy. Currently taking Lasix 60 mg daily with extra 40 mg if needed for worsening lower extremity edema. He was admitted to the [facility] in August 2022 due to hyponatremia, hyperkalemia and acute kidney injury, leukocytosis secondary to COVID-19 causing dehydration. I saw him on 05/24/2023 and the office and he had significant evidence of volume overload by exam and echocardiogram. I intensified his diuretic regimen. He ended up getting admitted to the [facility] with acute heart failure exacerbation and underwent diuresis. I last saw him on 07/21/2023. I proceeded with a transesophageal echocardiogram to further assess his aortic valve stenosis given his admission for decompensated heart failure to rule out more severe aortic valve stenosis that what we are seeing on transthoracic echocardiogram. Transesophageal echocardiogram was suggestive heavily calcified aortic valve with moderate to severe stenosis. Today he is seen in follow-up. He has been doing better. He has no chest pain. He has shortness of breath on exertion, NYHA class II. He also has mild lower extremity swelling which has improved significantly from before. He does not feel palpitations. He has no syncope. No dizziness or lightheadedness. Review of Systems Cardiovascular: Positive for dyspnea on exertion and leg swelling. All other systems reviewed and are negative. Objective Visit Vitals BP 130/70 (BP Location: Left arm, Patient Position: Sitting, BP Cuff Size: Adult) Pulse 73 Resp 12 Ht 1.854 m (6' 1 ) Wt 95.3 kg (210 lb) SpO2 94% BMI 27.71 kg/m??? Smoking Status Former BSA 2.22 m??? Physical Exam Constitutional: Appearance: He is well-developed. He is not ill-appearing. HENT: Head: Normocephalic and atraumatic. Nose: Nose normal. Eyes: General: No scleral icterus. Pupils: Pupils are equal, round, and reactive to light. Neck: Thyroid: No thyromegaly. Vascular: No JVD. Cardiovascular: Rate and Rhythm: Normal rate. Rhythm irregularly irregular. Pulses: Radial pulses are 2+ on the right side and 2+ on the left side. Heart sounds: Murmur heard. Systolic (RUSB) murmur is present with a grade of 3/6. No friction rub. No gallop. Pulmonary: Effort: Pulmonary effort is normal. No respiratory distress. Breath sounds: Normal breath sounds. No wheezing or rales. Chest: Chest wall: No tenderness. Abdominal: General: Bowel sounds are normal. There is no distension. Palpations: Abdomen is soft. Tenderness: There is no abdominal tenderness. Musculoskeletal: General: No swelling. Cervical back: Neck supple. Right lower le+ Pitting Edema present. Left lower le+ Pitting Edema present. Skin: General: Skin is warm and dry. Neurological: General: No focal deficit present. Mental Status: He is alert and oriented to person, place, and time. Psychiatric: Mood and Affect: Mood normal. Behavior: Behavior is cooperative. Judgment: Judgment normal. Allergies Allergies Allergen Reactions Iodinated Contrast Media Nitroglycerin Raexyff-Qzx-Fqx Reductase Inhibitors Medications Current Outpatient Medications: (more content not included)... [facility] 08-31-2023 Note Patient: Nadir lin Procedure Information Date/Time: 08/31/23 1300 Procedure: TRANSESOPHAGEAL ECHO (MARK) Location: [facility] Vascular Lab Clinical information reviewed: Allergies Meds Physical Exam Airway Mallampati: III TM distance: >3 FB Cardiovascular Rhythm: regular Rate: normal (+) murmur Dental Pulmonary Breath sounds clear to auscultation Abdominal Abdomen: soft Anesthesia Plan ASA 4 (Conscious sedation) Anesthetic plan and risks discussed with patient. Use of blood products discussed with patient who. Additional Equipment Requests [facility] 07-21-2023 Note [place] [facility] Subjective Nadir Heredia is a 83 y.o. 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 He is an 83-year-old man with paroxysmal atrial fibrillation maintained on anticoagulation with Eliquis, aortic stenosis, renal artery stenosis, and hypertension. He had stenting of the left renal artery from the left radial approach on 05/01/2015 (Express SD 6 mm x 18 mm stent). He cannot take statins due to liver side effects. On 09/04/2019 he was having symptoms of shortness of breath on exertion and lower extremity edema. His echo had shown severely elevated RVSP and pericardial effusion. He responded to increasing diuretic therapy. Currently taking Lasix 60 mg daily with extra 40 mg if needed for worsening lower extremity edema. He was admitted to the [facility] in August 2022 due to hyponatremia, hyperkalemia and acute kidney injury, leukocytosis secondary to COVID-19 causing dehydration. I saw him on 05/24/2023 and the office and he had significant evidence of volume overload by exam and echocardiogram. I intensified his diuretic regimen. He ended up getting admitted to the [facility] with acute heart failure exacerbation and underwent diuresis. He is currently on amoxicillin for 10 days due to URI. Today he is seen in follow-up. He has been doing better. He has no chest pain. He has shortness of breath on exertion, NYHA class II. He also has mild lower extremity swelling which has improved significantly from before. He does not feel palpitations. He has no syncope. No dizziness or lightheadedness. Review of Systems Cardiovascular: Positive for dyspnea on exertion and leg swelling. All other systems reviewed and are negative. Objective Visit Vitals BP 116/70 (BP Location: Right arm, Patient Position: Sitting, BP Cuff Size: Adult) Pulse 72 Wt 95.3 kg (210 lb) SpO2 93% BMI 27.71 kg/m??? Smoking Status Former BSA 2.22 m??? Physical Exam Constitutional: Appearance: He is well-developed. He is not ill-appearing. HENT: Head: Normocephalic and atraumatic. Nose: Nose normal. Eyes: General: No scleral icterus. Pupils: Pupils are equal, round, and reactive to light. Neck: Thyroid: No thyromegaly. Vascular: No JVD. Cardiovascular: Rate and Rhythm: Normal rate. Rhythm irregularly irregular. Pulses: Radial pulses are 2+ on the right side and 2+ on the left side. Heart sounds: Murmur heard. Systolic (RUSB) murmur is present with a grade of 3/6. No friction rub. No gallop. Pulmonary: Effort: Pulmonary effort is normal. No respiratory distress. Breath sounds: Normal breath sounds. No wheezing or rales. Chest: Chest wall: No tenderness. Abdominal: General: Bowel sounds are normal. There is no distension. Palpations: Abdomen is soft. Tenderness: There is no abdominal tenderness. Musculoskeletal: General: No swelling. Cervical back: Neck supple. Right lower le+ Pitting Edema present. Left lower le+ Pitting Edema present. Skin: General: Skin is warm and dry. Neurological: General: No focal deficit present. Mental Status: He is alert and oriented to person, place, and time. Psychiatric: Mood and Affect: Mood normal. Behavior: Behavior is cooperative. Judgment: Judgment normal. Allergies Allergies Allergen Reactions Iodinated Contrast Media Nitroglycerin Lmssdbn-Gib-Xcs Reductase Inhibitors Medications Current Outpatient Medications: acyclovir (Zovirax) 400 mg tablet, Take 1 tablet twice a day by oral route for 30 days., Disp: , Rfl: Align 4 mg capsule, TAKE 1 CAPSULE BY MOUTH DAILY AFTER COMPLETING THE ANTIBIOTICS COURSE, Disp: , Rfl: apixaban (Eliquis) 2.5 mg tablet, Take 1 tablet twice a day by oral route for 90 days., Disp: , Rfl: aspirin 81 mg EC tablet, Take 1 tablet every day by (more content not included)... [facility] 06-14-2023 Note BMP script sent [facility] 06-14-2023 Note Coronary artery dise ase is stable Continue GDMT- ASA, labetalol, zetia continue risk factor modifications- heart healthy diet, regular exercise as tolerated and continue all medications. [facility] 06-14-2023 Note stable [facility] 06-14-2023 Note Recent echo 05/2023 w ith noted mod AO stenosis [facility] 06-14-2023 Note [facility] CARDIOLOGY PROGR ESS NOTE HPI: Nadir Heredia is a 83 y.o. male here for hospital f/U after admit to [facility] for resp failure, and acute heart failure exacerbation. Recent admit to [facility] for shortness of breath, acute HFpEF with ARTUR. BNP 3311, BUN 26, CR 1.5-1.9, LFT normal, K+ normal. Troponin level negative. CXR showed vascular congestion Pt was admitted and diuresed as inpt with lasix IV. Today his weight is down 9 pounds from his last visit. Currently states he feels quite well, states shortness of breath is back to his typical- SOB with climbing 1 set of stairs. Denied orthopnea, chest pain, leg swelling, fever, chills. Visit Vitals BP 117/58 (BP Location: Left arm, Patient Position: Sitting) Pulse 85 Ht 1.854 m (6' 1 ) Wt 97.5 kg (215 lb) SpO2 94% BMI 28.37 kg/m??? Smoking Status Former BSA 2.24 m??? Allergies Allergen Reactions Iodinated Contrast Media Nitroglycerin Uaxsbny-Dss-Hkq Reductase Inhibitors Medications: Current Outpatient Medications on File Prior to Visit Medication Sig Dispense Refill acyclovir (Zovirax) 400 mg tablet Take 1 tablet twice a day by oral route for 30 days. Align 4 mg capsule TAKE 1 CAPSULE BY MOUTH DAILY AFTER COMPLETING THE ANTIBIOTICS COURSE apixaban (Eliquis) 2.5 mg tablet Take 1 tablet twice a day by oral route for 90 days. aspirin 81 mg EC tablet Take 1 tablet every day by oral route. cloNIDine (Catapres) 0.1 mg tablet Take 1 tablet by mouth in the morning and at bedtime. empagliflozin (Jardiance) 10 mg Take 1 tablet by mouth in the morning. ezetimibe (Zetia) 10 mg tablet Take 1 tablet every day by oral route. furosemide (Lasix) 40 mg tablet Take 1 tablet (40 mg) by mouth in the morning and at bedtime. (Patient taking differently: Take 60 mg by mouth in the morning.) 180 tablet 3 gabapentin (Neurontin) 600 mg tablet take 1 tablet morning then 2 tablet evening glimepiride (Amaryl) 4 mg tablet Take 1 tablet by mouth in the morning and at bedtime. hydrALAZINE (Apresoline) 100 mg tablet Take 1 tablet twice a day by oral route for 90 days. labetalol (Normodyne) 300 mg tablet Take 300 mg by mouth in the morning and at bedtime. metoclopramide (Reglan) 5 mg tablet pioglitazone (Actos) 30 mg tablet Take 1 tablet by mouth in the morning. potassium chloride CR (Klor-Con M20) 20 mEq ER tablet Take 1 tablet every day by oral route for 90 days. primidone (Mysoline) 50 mg tablet Take 2 tablets by mouth in the morning and at bedtime. tamsulosin (Flomax) 0.4 mg 24 hr capsule Take 1 capsule every day by oral route for 90 days. tiotropium (Spiriva Respimat) 1.25 mcg/actuation inhaler Inhale 2 puffs every day by inhalation route. [DISCONTINUED] dulaglutide (Trulicity) 0.75 mg/0.5 mL pen injector Inject 0.75 mg under the skin 1 (one) time per week. No current facility-administered medications on file prior to visit. Physical Exam: Constitutional: Appearance: Normal appearance. Without apparent distress, obese, chronically ill HENT: Head: Normocephalic and atraumatic. Nose: Nose normal. Mouth/Throat: Mouth: Mucous membranes are moist. Eyes: Extraocular Movements: Extraocular movements intact. Conjunctiva/sclera: Conjunctivae normal. Neck: Vascular: No JVD. Cardiovascular: Rate and Rhythm: Normal rate and regular rhythm. Pulses: Posterior tibial pulses are 3 on the right side and 3 on the left side. Heart sounds: RUSB systolic murmur 3/6, S1 normal and S2 normal. Pulmonary: Effort: Pulmonary effort is normal. Breath sounds: Normal breath sounds. Abdominal: General: Bowel sounds are normal. Palpations: Abdomen is soft. Musculoskeletal: General: Normal range of motion. BLE with hemosideran skin changes Right lower le+ edema. Left lower le+ edema. Skin: General: Skin is warm and dry. Capillary Refill: Capillary refill takes less than 2 seconds. Neurological: General: No focal deficit present. Mental Status: alert and oriented to person, place, and time. Psychiatric: Mood and Affect: Mood normal. Behavior: Behavior normal. Thought Content: Thought content normal. Judgment: Judgment normal. Labs: 06/14/23 CBC- WBC elevated 14.6, HBG15.9 and plt stable BUN 38 and Cr 1.9 elevated Liver function normal Troponin levels negative BNP 05/31/23- 3311, 06/01/23- 7988 Last lab values have been reviewed CV Testing: CXR 05/31/23 Pulmonary vascular congestion Mild lt basilar infiltrate 05/19/23 Echo No echocardiogram results found for the past 12 months Assessment/Plan: Acute on chronic diastolic heart failure (CMS/HCC) Recent admit to [facility] for shortness of breath, acute HFpEF with ARTUR. BNP 3311, BUN 26, CR 1.5-1.9, LFT normal, K+ normal. Troponin level negative. CXR showed vascular congestion Pt was admitted and diuresed as inpt. [facility] Continue GDMT- remains on jardiance and lasix 60 mg daily for diuresis Monitor daily weights, I&O, fluid restriction 1.5 (more content not included)... [facility] 06-14-2023 Note Patient here for [facility] for CHF. Dr. Sung gave him a few days of spironolactone to help with SOB. This did not help so he went to [facility] ED. He was diuresed with IV lasix. Says his breathing and LE edema are much better. Denies chest pain, lightheadedness, palpitations, and bleeding on Eliquis. Review of Systems Cardiovascular: Positive for dyspnea on exertion (improving) and leg swelling (improving). Hematologic/Lymphatic: Bruises/bleeds easily. Neurological: Positive for loss of balance. All other systems reviewed and are negative. [facility] 06-14-2023 Note Recent admit to [facility] for shortness of breath, acute HFpEF with ARTUR. BNP 3311, BUN 26, CR 1.5-1.9, LFT normal, K+ normal. Troponin level negative. CXR showed vascular congestion Pt was admitted and diuresed as inpt. [facility] Continue GDMT- remains on jardiance and lasix 60 mg daily for diuresis Monitor daily weights, I&O, fluid restriction 1.5-2L/day, renal function and electrolytes- Script for BMP and CBC provided pt is also seeing PCP today [facility] 06-10-2023 Hospital Discharge instructions Patient Education 06/10/2023 10:41:11 Colon Polyps Colon Polyps Colon polyps are tissue growths inside the colon, which is part of the large intestine. They are one of the types of polyps that can grow in the body. A polyp may be a round bump or a mushroom-shaped growth. You could have one polyp or more than one. Most colon polyps are noncancerous (benign). However, some colon polyps can become cancerous over time. Finding and removing the polyps early can help prevent this. What are the causes? The exact cause of colon polyps is not known. What increases the risk? The following factors may make you more likely to develop this condition: Having a family history of colorectal cancer or colon polyps. Being older than 45 years of age. Being younger than 45 years of age and having a significant family history of colorectal cancer or colon polyps or a genetic condition that puts you at higher risk of getting colon polyps. Having inflammatory bowel disease, such as ulcerative colitis or Crohn's disease. Having certain conditions passed from parent to child (hereditary conditions), such as: ?Familial adenomatous polyposis (FAP). ?Bahena syndrome. ?Turcot syndrome. ?Peutz Jeghers syndrome. ?MUTYH-associated polyposis (MAP). Being overweight. Certain lifestyle factors. These include smoking cigarettes, drinking too much alcohol, not getting enough exercise, and eating a diet that is high in fat and red meat and low in fiber. Having had childhood cancer that was treated with radiation of the abdomen. What are the signs or symptoms? Many times, there are no symptoms. If you have symptoms, they may include: Blood coming from the rectum during a bowel movement. Blood in the stool (feces). The blood may be bright red or very dark in color. Pain in the abdomen. A change in bowel habits, such as constipation or diarrhea. How is this diagnosed? This condition is diagnosed with a colonoscopy. This is a procedure in which a lighted, flexible scope is inserted into the opening between the buttocks (anus) and then passed into the colon to examine the area. Polyps are sometimes found when a colonoscopy is done as part of routine cancer screening tests. How is this treated? This condition is treated by removing any polyps that are found. Most polyps can be removed during a colonoscopy. Those polyps will then be tested for cancer. Additional treatment may be needed depending on the results of testing. Follow these instructions at home: Eating and drinking Eat foods that are high in fiber, such as fruits, vegetables, and whole grains. Eat foods that are high in calcium and vitamin D, such as milk, cheese, yogurt, eggs, liver, fish, and broccoli. Limit foods that are high in fat, such as fried foods and desserts. Limit the amount of red meat, precooked or cured meat, or other processed meat that you eat, such as hot dogs, sausages, navarro, or meat loaves. Limit sugary drinks. Lifestyle Maintain a healthy weight, or lose weight if recommended by your health care provider. Exercise every day or as told by your health care provider. Do not use any products that contain nicotine or tobacco, such as cigarettes, e-cigarettes, and chewing tobacco. If you need help quitting, ask your health care provider. Do not drink alcohol if: ?Your health care provider tells you not to drink. ?You are , may be , or are planning to become . If you drink alcohol: ?Limit how much you use to: ?0 1 drink a day for women. ?0 2 drinks a day for men. ?Know how much alcohol is in your drink. In the [place] one drink equals one 12 oz bottle of beer (355 mL), one 5 oz glass of wine (148 mL), or one 1 oz glass of hard liquor (44 mL). General instructions Take fzkv-slu-vqykpnp and prescription medicines only as told by your health care provider. Keep all follow-up visits. This is important. This includes having regularly scheduled colonoscopies. Talk to your health care provider about when you need a colonoscopy. Contact a health care provider if: You have new or worsening bleeding during a bowel movement. You have new or increased blood in your stool. You have a change in bowel habits. You lose weight for no known reason. Summary Colon polyps are tissue growths inside the colon, which is part of the large intestine. They are one type of polyp that can grow in the body. Most colon polyps are noncancerous (benign), but some can become cancerous over time. This condition is diagnosed with a colonoscopy. This condition is treated by removing any polyps that are found. Most polyps can be removed during a colonoscopy. This information is not intended to replace advice given to you by your health care provider. Make sure you discuss any questions you have with your health care provider. Document Revised: 02/19/2021 Document Reviewed: 02/19/2021 [employer] Patient Education 2022 [employer]. Follow Up Care 04/13/2023 14:39:27 With:Nereyda Gomez CNP Address: When:3 months [facility] 05-24-2023 Note [place] [facility] Subjective Nadir Heredia is a 83 y.o. year old male patient being seen for 8 mo follow up CAD, chronic afib, aortic valve disorder, and diastolic heart failure. He had echo last week. Denies chest pain and bleeding on Eliquis. 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 He is an 81-year-old man with paroxysmal atrial fibrillation maintained on anticoagulation with Eliquis, aortic stenosis, renal artery stenosis, and hypertension. He had stenting of the left renal artery from the left radial approach on 05/01/2015 (Express SD 6 mm x 18 mm stent). He cannot take statins due to liver side effects. On 09/04/2019 he was having symptoms of shortness of breath on exertion and lower extremity edema. His echo had shown severely elevated RVSP and pericardial effusion. He responded to increasing diuretic therapy. Currently taking Lasix 60 mg daily with extra 40 mg if needed for worsening lower extremity edema. He was admitted to the [facility] in August 2022 due to hyponatremia, hyperkalemia and acute kidney injury, leukocytosis secondary to COVID-19 causing dehydration. Today he is seen in follow-up. He has been doing well. He has no chest pain. He does complain of worsening shortness of breath on exertion, NYHA class III. He also has significant lower extremity swelling with the blisters about the forearm and the legs. He does not feel palpitations. He has no syncope. No dizziness or lightheadedness. Review of Systems Cardiovascular: Positive for dyspnea on exertion and leg swelling. Respiratory: Positive for wheezing. Hematologic/Lymphatic: Bruises/bleeds easily. All other systems reviewed and are negative. Objective Visit Vitals BP 134/67 (BP Location: Left arm, Patient Position: Sitting) Pulse 69 Ht 1.854 m (6' 1 ) Wt 102 kg (224 lb) SpO2 93% BMI 29.55 kg/m??? Smoking Status Former BSA 2.29 m??? Physical Exam Constitutional: Appearance: He is well-developed. He is not ill-appearing. HENT: Head: Normocephalic and atraumatic. Nose: Nose normal. Eyes: General: No scleral icterus. Pupils: Pupils are equal, round, and reactive to light. Neck: Thyroid: No thyromegaly. Vascular: No JVD. Cardiovascular: Rate and Rhythm: Normal rate. Rhythm irregularly irregular. Pulses: Radial pulses are 2+ on the right side and 2+ on the left side. Heart sounds: Murmur heard. Systolic (RUSB) murmur is present with a grade of 2/6. No friction rub. No gallop. Pulmonary: Effort: Pulmonary effort is normal. No respiratory distress. Breath sounds: Normal breath sounds. No wheezing or rales. Chest: Chest wall: No tenderness. Abdominal: General: Bowel sounds are normal. There is no distension. Palpations: Abdomen is soft. Tenderness: There is no abdominal tenderness. Musculoskeletal: General: No swelling. Cervical back: Neck supple. Right lower le+ Pitting Edema present. Left lower le+ Pitting Edema present. Skin: General: Skin is warm and dry. Neurological: General: No focal deficit present. Mental Status: He is alert and oriented to person, place, and time. Psychiatric: Mood and Affect: Mood normal. Behavior: Behavior is cooperative. Judgment: Judgment normal. Allergies Allergies Allergen Reactions Iodinated Contrast Media Nitroglycerin Nyaokfu-Thw-Nph Reductase Inhibitors Medications Current Outpatient Medications: acyclovir (Zovirax) 400 mg tablet, Take 1 tablet twice a day by oral route for 30 days., Disp: , Rfl: apixaban (Eliquis) 2.5 mg tablet, Take 1 tablet twice a day by oral route for 90 days., Disp: , Rfl: aspirin 81 mg EC tablet, Take 1 tablet every day by oral route., Disp: , Rfl: cloNIDine (Catapres) 0.1 mg tablet, Take 1 tablet by mouth in the morning and at bedtime., Disp: , Rfl: empagliflozin (Jardiance) 10 mg, Take 1 tablet by mouth in the morning., Disp: , Rfl: ergocalciferol (Vitamin D-2) 1.25 MG (22650 Units) capsule, Take 1 capsule (50,000 Units) by mouth 1 (one) time per week., Disp: 8 capsule, Rfl: 0 ezetimibe (Zetia) 10 (more content not included)... [facility] 04-13-2023 Hospital Discharge instructions Patient Education 04/13/2023 14:21:04 Colonoscopy, Adult Colonoscopy, Adult A colonoscopy is a procedure to look at the entire large intestine. This procedure is done using a long, thin, flexible tube that has a camera on the end. You may have a colonoscopy: As a part of normal colorectal screening. If you have certain symptoms, such as: ?A low number of red blood cells in your blood (anemia). ?Diarrhea that does not go away. ?Pain in your abdomen. ?Blood in your stool. A colonoscopy can help screen for and diagnose medical problems, including: An abnormal growth of cells or tissue (tumor). Abnormal growths within the lining of your intestine (polyps). Inflammation. Areas of bleeding. Tell your health care provider about: Any allergies you have. All medicines you are taking, including vitamins, herbs, eye drops, creams, and idmk-ccl-zjvlstl medicines. Any problems you or family members have had with anesthetic medicines. Any bleeding problems you have. Any surgeries you have had. Any medical conditions you have. Any problems you have had with having bowel movements. Whether you are or may be . What are the risks? Generally, this is a safe procedure. However, problems may occur, including: Bleeding. Damage to your intestine. Allergic reactions to medicines given during the procedure. Infection. This is rare. What happens before the procedure? Eating and drinking restrictions Follow instructions from your health care provider about eating or drinking restrictions, which may include: A few days before the procedure: ?Follow a low-fiber diet. ?Avoid nuts, seeds, dried fruit, raw fruits, and vegetables. 1 3 days before the procedure: ?Eat only gelatin dessert or ice pops. ?Drink only clear liquids, such as water, clear juice, clear broth or bouillon, black coffee or tea, or clear soft drinks or sports drinks. ?Avoid liquids that contain red or purple dye. The day of the procedure: ?Do not eat solid foods. You may continue to drink clear liquids until up to 2 hours before the procedure. ?Do not eat or drink anything starting 2 hours before the procedure, or within the time period that your health care provider recommends. Bowel prep If you were prescribed a bowel prep to take by mouth (orally) to clean out your colon: Take it as told by your health care provider. Starting the day before your procedure, you will need to drink a large amount of liquid medicine. The liquid will cause you to have many bowel movements of loose stool until your stool becomes almost clear or light green. If your skin or the opening between the buttocks (anus) gets irritated from diarrhea, you may relieve the irritation using: ?Wipes with medicine in them, such as adult wet wipes with aloe and vitamin E. ?A product to soothe skin, such as petroleum jelly. If you vomit while drinking the bowel prep: ?Take a break for up to 60 minutes. ?Begin the bowel prep again. ?Call your health care provider if you keep vomiting or you cannot take the bowel prep without vomiting. To clean out your colon, you may also be given: ?Laxative medicines. These help you have a bowel movement. ?Instructions for enema use. An enema is liquid medicine injected into your rectum. Medicines Ask your health care provider about: Changing or stopping your regular medicines or supplements. This is especially important if you are taking iron supplements, diabetes medicines, or blood thinners. Taking medicines such as aspirin and ibuprofen. These medicines can thin your blood. Do not take these medicines unless your health care provider tells you to take them. Taking miub-thz-csgcres medicines, vitamins, herbs, and supplements. General instructions Ask your health care provider what steps will be taken to help prevent infection. These may include washing skin with a germ-killing soap. If you will be going home right after the procedure, plan to have a responsible adult: ?Take you home from the hospital or clinic. You will not be allowed to drive. ? Care for you for the time you are told. What happens during the procedure? An IV will be inserted into one of your veins. You will be given a medicine to make you fall asleep (general anesthetic). You will lie on your side with your knees bent. A lubricant will be put on the tube. Then the tube will be: ?Inserted into your anus. ?Gently eased through all parts of your large intestine. Air will be sent into your colon to keep it open. This may cause some pressure or cramping. Images will be taken with the camera and will appear on a screen. A small tissue sample may be removed to be looked at under a microscope (biopsy). The tissue may be sent to a lab for testing if any signs of problems are found. If small polyps are found, they may be removed and checked for cancer cells. When the procedure is finished, the tube will be removed. The procedure may vary among health care providers and hospitals. What happens after the procedure? Your blood pressure, heart rate, breathing rate, and blood oxygen level will be monitored until you leave the hospital or clinic. You may have a small amount of blood in your stool. You may pass gas and have mild cramping or bloating in your abdomen. This is caused by the air that was used to open your colon during the exam. If you were given a sedative during the procedure, it can affect you for several hours. Do not drive or operate machinery until your health care provider says that it is safe. It is up to you to get the results of your procedure. Ask your health care provider, or the department that is doing the procedure, when your results will be ready. Summary A colonoscopy is a procedure to look at the entire large intestine. Follow instructions from your health care provider about eating and drinking before the procedure. If you were prescribed an oral bowel prep to clean out your colon, take it as told by your health care provider. During the colonoscopy, a flexible tube with a camera on its end is inserted into the anus and then passed into all parts of the large intestine. This information is not intended to replace advice given to you by your health care provider. Make sure you discuss any questions you have with your health care provider. Document Revised: 10/26/2022 Document Reviewed: 06/24/2022 [employer] Patient Education 2022 [employer]. Follow Up Care 04/09/2023 11:27:16 With:Nereyda Gomez CNP Address: When:1 month [facility] 04-13-2023 Note Radiology Colonoscopy, Adult A colonoscopy is a procedure to look at the entire large intestine. This procedure is done using a long, thin, flexible tube that has a camera on the end. You may have a colonoscopy: ? As a part of normal colorectal screening. ? If you have certain symptoms, such as: ? A low number of red blood cells in your blood (anemia). ? Diarrhea that does not go away. ? Pain in your abdomen. ? Blood in your stool. A colonoscopy can help screen for and diagnose medical problems, including: ? An abnormal growth of cells or tissue (tumor). ? Abnormal growths within the lining of your intestine (polyps). ? Inflammation. ? Areas of bleeding. Tell your health care provider about: ? Any allergies you have. ? All medicines you are taking, including vitamins, herbs, eye drops, creams, and shkj-eip-hkxlzsy medicines. ? Any problems you or family members have had with anesthetic medicines. ? Any bleeding problems you have. ? Any surgeries you have had. ? Any medical conditions you have. ? Any problems you have had with having bowel movements. ? Whether you are or may be . What are the risks? Generally, this is a safe procedure. However, problems may occur, including: ? Bleeding. ? Damage to your intestine. ? Allergic reactions to medicines given during the procedure. ? Infection. This is rare. What happens before the procedure? Eating and drinking restrictions Follow instructions from your health care provider about eating or drinking restrictions, which may include: ? A few days before the procedure: ? Follow a low-fiber diet. ? Avoid nuts, seeds, dried fruit, raw fruits, and vegetables. ? 1?3 days before the procedure: ? Eat only gelatin dessert or ice pops. ? Drink only clear liquids, such as water, clear juice, clear broth or bouillon, black coffee or tea, or clear soft drinks or sports drinks. ? Avoid liquids that contain red or purple dye. ? The day of the procedure: ? Do not eat solid foods. You may continue to drink clear liquids until up to 2 hours before the procedure. ? Do not eat or drink anything starting 2 hours before the procedure, or within the time period that your health care provider recommends. Bowel prep If you were prescribed a bowel prep to take by mouth (orally) to clean out your colon: ? Take it as told by your health care provider. Starting the day before your procedure, you will need to drink a large amount of liquid medicine. The liquid will cause you to have many bowel movements of loose stool until your stool becomes almost clear or light green. ? If your skin or the opening between the buttocks (anus) gets irritated from diarrhea, you may relieve the irritation using: ? Wipes with medicine in them, such as adult wet wipes with aloe and vitamin E. ? A product to soothe skin, such as petroleum jelly. ? If you vomit while drinking the bowel prep: ? Take a break for up to 60 minutes. ? Begin the bowel prep again. ? Call your health care provider if you keep vomiting or you cannot take the bowel prep without vomiting. ? To clean out your colon, you may also be given: ? Laxative medicines. These help you have a bowel movement. ? Instructions for enema use. An enema is liquid medicine injected into your rectum. Medicines Ask your health care provider about: ? Changing or stopping your regular medicines or supplements. This is especially important if you are taking iron supplements, diabetes medicines, or blood thinners. ? Taking medicines such as aspirin and ibuprofen. These medicines can thin your blood. Do not take these medicines unless your health care provider tells you to take them. ? Taking zvkw-gry-mcefaqd medicines, vitamins, herbs, and supplements. General instructions ? Ask your health care provider what steps will be taken to help prevent infection. These may include washing skin with a germ-killing soap. ? If you will be going home right after the procedure, plan to have a responsible adult: ? Take you home from the hospital or clinic. You will not be allowed to drive. ? Care for you for the time you are told. What happens during the procedure? ? An IV will be inserted into one of your veins. ? You will be given a medicine to make you fall asleep (general anesthetic). ? You will lie on your side with your knees bent. ? A lubricant will be put on the tube. Then the tube will be: ? Inserted into your anus. ? Gently eased through all parts of your large intestine. ? Air will be sent into your colon to keep it open. This may cause some pressure or cramping. ? Images will be taken with the camera and will appear on a screen. ? A small tissue sample may be removed to be looked at under a microscope (biopsy). The tissue may be sent to a lab for testing if any signs of problems are found. ? If small polyps are found, they may be removed and checked for cancer cells. (more content not included)... [facility] 04-07-2023 Note Nephrology Clinic Patient: Nadir Heredia; 83 y.o. Visit date: 04/07/23 Reason for today's visit: Follow up for CKD stage 3, Hypertension, and Edema/ Fluid overload SUBJECTIVE: History Of Present Illness: HISTORICAL: 10/23/2015: Here for FU from the hospital. He was first admitted to [facility] with weight gain and so he was admitted and then transferred here. He gained 20 lbs in 1 week and so that is how he presented first. He has had High blood pressure for many years. In April of this year he had a Left Renal Artery stent placed. He also DM. It is well controlled he states. Has had DM for years now. At least 3 years now. No swelling lately. He was recently taken off Minoxidil, Lasix, and Benicare. He currently is on Hydralazine, Nifedipine, and Labetalol. Recently he has not been gaining any weight. Urinating well. Eating well. No Salt. Appetite is good. He measures BP at home and it yesterday was 140/72. At home it has been running pretty much that number at home continuously. His Nifedipine was recently decreased. When he came to the hospital on 10/13 his creat was 4.85. It has decreased rapidly and is now currently 1.43 as of today. Electrolytes are stable also. HGB A1C was 5.2 recently. 12/25/2015: Presents for follow up visit. Feels fine today. Blood pressure range at home - 140/80 to 110/ 60 mm of Hg. Labs from 12/18/2015 - reviewed. BUN 31 & serum creatinine is 1.57 mg/dl, SHERRY negative, C3 & 4 normal. SPEP negative. No proteinuria. Ultrasound of the Kidney - Right 8.9 x 6.3 x 7.3, Left 9.8 x 5.1 x 7.3 cms, cortical thinning, No hydronephrosis. 02/15/2019: Patient is 79 year old male with a medical history of Hypertension & Diabetes Mellitus with Chronic Kidney disease stage 3 with baseline serum creatinine of 1.4 to 1.6 mg/dl. He is in clinic today for follow up visit. He appears having volume overload. He had an ER visit in 11/2018 & x ray findings consistent with pulmonary edema, BNP elevated (2538), echocardiogram in 11/2018 showed MR, TR & . BP in clinic today is 146/63 mm of Hg. Labs done on 01/25/2019 reviewed: WBC 12.2, Hb 13.9, PLT 207, Glucose 185, BUN 16, S. Cr 1.43, Na 139, K 4.3, Cl 104, Ca 8.9, bicarb 27.7. 03/19/2021: Patient is 81 year old male with a medical history of Hypertension & Diabetes Mellitus with Chronic Kidney disease stage 3 with baseline serum creatinine of 1.4 to 1.6 mg/dl. He is in clinic today for follow up visit. He feels fine today. 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 He reports feeling short of breath on walking long distance. He mentions that his edema is better. Urine out put is good. No urinary symptoms. No GI symptoms. He has developed Parkinsonism and is following with a specialist for that. Blood pressure is 123/75 mm of Hg in clinic today & at home ranges 120/70 to 130/80 mm of Hg. He takes Nifedipine ER 60 mg bid, Labetalol 150 mg bid , Hydralazine 100 mg bid & Clonidine 0.1 mg bid. He also takes Lasix 60 mg in AM & 40 mg in PM. Labs done on 03/04/2021 reviewed: Glucose 170, BUN 30, S. Cr 1.77, Na 140, K 4.7, Cl 103, Ca 9.3, Phos 3.5, Mg 2.0, bicarb 26.5, Albumin 3.5, urine PC ratio <0.14 09/10/2021: Patient is 81 year old male with a medical history of Hypertension & Diabetes Mellitus with Chronic Kidney disease stage 3 with baseline serum creatinine of 1.4 to 1.6 mg/dl. He is in clinic today for follow up visit. He feels fine today. He reports feeling short of breath on climbing stairs. He mentions that his edema is better. Urine out put is good. No urinary symptoms. No GI symptoms. He has been diagnosed with benign essential tremors & Parkinsonism was ruled out recently. Blood pressure is 177/75 - 166/78 mm of Hg in clinic today & at home ranges 120/70 to 130/80 mm of Hg. He takes Nifedipine ER 60 mg bid, Labetalol 150 mg bid , Hydralazine 100 mg bid & Clonidine 0.1 mg bid. He also takes Lasix 60 mg in AM & 40 mg in PM. Labs done on 09/02/2021 reviewed: Glucose 172, BUN 33, S. Cr 2.0, Na 141, K 4.4, Cl 104, Ca 8.8, Phos 3.4, Mg 2.3, bicarb 29, Albumin 3.5, urine PC ratio 0.47 06/17/2022: Patient is 82 year old male with a medical history of Hypertension & Diabetes Mellitus with Chronic Kidney disease stage 3 with baseline serum creatinine of 1.4 to 1.6 mg/dl. Patient is here for follow-up. He reports having Diverticulitis currently and taking antibiotics - Ciprofloxacin and Metronidazole. He denies nausea, vomiting, diarrhea, fever, chills, dysuria, hematuria. Blood pressure is 145/78 (120/60 -130/80 at home), heart rate 78/min. He takes Nifedipine ER 60 mg bid, Labetalol 150 mg bid , Hydralazine 100 mg bid & Clonidine 0.1 mg bid. He also takes Lasix 60 mg in AM. Labs done on 06/08/2022 reviewed: Glucose 197, Na 138, K 4.7, bicarb 30, BUN 25, S. Cr 1.70, Ca 9.2, Mg 2.3, Phos 3.5, HbA1c 8.9, Urine PC ratio <0.34 04/07/2023: Patient is 83 year (more content not included)... [facility] 01-06-2023 Note Nephrology Clinic Patient: Nadir Heredia; 82 y.o. Visit date: 01/06/23 Reason for today's visit: Follow up for CKD stage 3, Hypertension, and Edema/ Fluid overload SUBJECTIVE: History Of Present Illness: HISTORICAL: 10/23/2015: Here for FU from the hospital. He was first admitted to [facility] with weight gain and so he was admitted and then transferred here. He gained 20 lbs in 1 week and so that is how he presented first. He has had High blood pressure for many years. In April of this year he had a Left Renal Artery stent placed. He also DM. It is well controlled he states. Has had DM for years now. At least 3 years now. No swelling lately. He was recently taken off Minoxidil, Lasix, and Benicare. He currently is on Hydralazine, Nifedipine, and Labetalol. Recently he has not been gaining any weight. Urinating well. Eating well. No Salt. Appetite is good. He measures BP at home and it yesterday was 140/72. At home it has been running pretty much that number at home continuously. His Nifedipine was recently decreased. When he came to the hospital on 10/13 his creat was 4.85. It has decreased rapidly and is now currently 1.43 as of today. Electrolytes are stable also. HGB A1C was 5.2 recently. 12/25/2015: Presents for follow up visit. Feels fine today. Blood pressure range at home - 140/80 to 110/ 60 mm of Hg. Labs from 12/18/2015 - reviewed. BUN 31 & serum creatinine is 1.57 mg/dl, SHERRY negative, C3 & 4 normal. SPEP negative. No proteinuria. Ultrasound of the Kidney - Right 8.9 x 6.3 x 7.3, Left 9.8 x 5.1 x 7.3 cms, cortical thinning, No hydronephrosis. 02/15/2019: Patient is 79 year old male with a medical history of Hypertension & Diabetes Mellitus with Chronic Kidney disease stage 3 with baseline serum creatinine of 1.4 to 1.6 mg/dl. He is in clinic today for follow up visit. He appears having volume overload. He had an ER visit in 11/2018 & x ray findings consistent with pulmonary edema, BNP elevated (2538), echocardiogram in 11/2018 showed MR, TR & . BP in clinic today is 146/63 mm of Hg. Labs done on 01/25/2019 reviewed: WBC 12.2, Hb 13.9, PLT 207, Glucose 185, BUN 16, S. Cr 1.43, Na 139, K 4.3, Cl 104, Ca 8.9, bicarb 27.7. 03/19/2021: Patient is 81 year old male with a medical history of Hypertension & Diabetes Mellitus with Chronic Kidney disease stage 3 with baseline serum creatinine of 1.4 to 1.6 mg/dl. He is in clinic today for follow up visit. He feels fine today. 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 He reports feeling short of breath on walking long distance. He mentions that his edema is better. Urine out put is good. No urinary symptoms. No GI symptoms. He has developed Parkinsonism and is following with a specialist for that. Blood pressure is 123/75 mm of Hg in clinic today & at home ranges 120/70 to 130/80 mm of Hg. He takes Nifedipine ER 60 mg bid, Labetalol 150 mg bid , Hydralazine 100 mg bid & Clonidine 0.1 mg bid. He also takes Lasix 60 mg in AM & 40 mg in PM. Labs done on 03/04/2021 reviewed: Glucose 170, BUN 30, S. Cr 1.77, Na 140, K 4.7, Cl 103, Ca 9.3, Phos 3.5, Mg 2.0, bicarb 26.5, Albumin 3.5, urine PC ratio <0.14 09/10/2021: Patient is 81 year old male with a medical history of Hypertension & Diabetes Mellitus with Chronic Kidney disease stage 3 with baseline serum creatinine of 1.4 to 1.6 mg/dl. He is in clinic today for follow up visit. He feels fine today. He reports feeling short of breath on climbing stairs. He mentions that his edema is better. Urine out put is good. No urinary symptoms. No GI symptoms. He has been diagnosed with benign essential tremors & Parkinsonism was ruled out recently. Blood pressure is 177/75 - 166/78 mm of Hg in clinic today & at home ranges 120/70 to 130/80 mm of Hg. He takes Nifedipine ER 60 mg bid, Labetalol 150 mg bid , Hydralazine 100 mg bid & Clonidine 0.1 mg bid. He also takes Lasix 60 mg in AM & 40 mg in PM. Labs done on 09/02/2021 reviewed: Glucose 172, BUN 33, S. Cr 2.0, Na 141, K 4.4, Cl 104, Ca 8.8, Phos 3.4, Mg 2.3, bicarb 29, Albumin 3.5, urine PC ratio 0.47 06/17/2022: Patient is 82 year old male with a medical history of Hypertension & Diabetes Mellitus with Chronic Kidney disease stage 3 with baseline serum creatinine of 1.4 to 1.6 mg/dl. Patient is here for follow-up. He reports having Diverticulitis currently and taking antibiotics - Ciprofloxacin and Metronidazole. He denies nausea, vomiting, diarrhea, fever, chills, dysuria, hematuria. Blood pressure is 145/78 (120/60 -130/80 at home), heart rate 78/min. He takes Nifedipine ER 60 mg bid, Labetalol 150 mg bid , Hydralazine 100 mg bid & Clonidine 0.1 mg bid. He also takes Lasix 60 mg in AM. Labs done on 06/08/2022 reviewed: Glucose 197, Na 138, K 4.7, bicarb 30, BUN 25, S. Cr 1.70, Ca 9.2, Mg 2.3, Phos 3.5, HbA1c 8.9, Urine PC ratio <0.34 (more content not included)... [facility] 07-18-2022 Note EXAM: US CHANI DOP LEG RT DATE: 07/18/2022 4:46 AM EDT INDICATION: COVID-19 COMPARISON: None. TECHNIQUE: Multiplanar grayscale, color Doppler, and spectral Doppler ultrasound of the right lower extremity veins. FINDINGS: Right Thigh Veins: Common Femoral: Patent. Femoral (SFV): Patent. Popliteal: Patent. Proximal Greater Saphenous: Patent. Proximal Deep Femoral Veins: Patent. Right Calf Veins: Patent as visualized. Other: Subcutaneous edema lower leg.. IMPRESSION: 1. No deep venous thrombosis (DVT) in the femoropopliteal veins. 2. No DVT in the visible portions of the calf veins. 3. Subcutaneous edema in the lower leg. Electronically authenticated by: LI ROBERTS Date: 2022-07-18 09:05 [facility] 06-09-2022 Hospital Discharge instructions Patient Education 06/09/2022 10:13:38 High-Fiber Diet High-Fiber Diet Fiber, also called dietary fiber, is a type of carbohydrate that is found in fruits, vegetables, whole grains, and beans. A high-fiber diet can have many health benefits. Your health care provider may recommend a high-fiber diet to help: Prevent constipation. Fiber can make your bowel movements more regular. Lower your cholesterol. Relieve the following conditions: ?Swelling of veins in the anus (hemorrhoids). ?Swelling and irritation (inflammation) of specific areas of the digestive tract (uncomplicated diverticulosis). ?A problem of the large intestine (colon) that sometimes causes pain and diarrhea (irritable bowel syndrome, IBS). Prevent overeating as part of a weight-loss plan. Prevent heart disease, type 2 diabetes, and certain cancers. What is my plan? The recommended daily fiber intake in grams (g) includes: 38 g for men age 50 or younger. 30 g for men over age 50. 25 g for women age 50 or younger. 21 g for women over age 50. You can get the recommended daily intake of dietary fiber by: Eating a variety of fruits, vegetables, grains, and beans. Taking a fiber supplement, if it is not possible to get enough fiber through your diet. What do I need to know about a high-fiber diet? It is better to get fiber through food sources rather than from fiber supplements. There is not a lot of research about how effective supplements are. Always check the fiber content on the nutrition facts label of any prepackaged food. Look for foods that contain 5 g of fiber or more per serving. Talk with a diet and mis specialist (dietitian) if you have questions about specific foods that are recommended or not recommended for your medical condition, especially if those foods are not listed below. Gradually increase how much fiber you consume. If you increase your intake of dietary fiber too quickly, you may have bloating, cramping, or gas. Drink plenty of water. Water helps you to digest fiber. What are tips for following this plan? Eat a wide variety of high-fiber foods. Make sure that half of the grains that you eat each day are whole grains. Eat breads and cereals that are made with whole-grain flour instead of refined flour or white flour. Eat brown rice, bulgur wheat, or millet instead of white rice. Start the day with a breakfast that is high in fiber, such as a cereal that contains 5 g of fiber or more per serving. Use beans in place of meat in soups, salads, and pasta dishes. Eat high-fiber snacks, such as berries, raw vegetables, nuts, and popcorn. Choose whole fruits and vegetables instead of processed forms like juice or sauce. What foods can I eat? Fruits Berries. Pears. Apples. Oranges. Avocado. Prunes and raisins. Dried figs. Vegetables Sweet potatoes. Spinach. Kale. Artichokes. Cabbage. Broccoli. Cauliflower. Green peas. Carrots. Squash. Grains Whole-grain breads. Multigrain cereal. Oats and oatmeal. Brown rice. Barley. Bulgur wheat. Millet. Quinoa. Bran muffins. Popcorn. [place] wafer crackers. Meats and other proteins [employer], kidney, and mendez beans. Soybeans. Split peas. Lentils. Nuts and seeds. Dairy Fiber-fortified yogurt. Beverages Fiber-fortified soy milk. Fiber-fortified orange juice. Other foods Fiber bars. The items listed above may not be a complete list of recommended foods and beverages. Contact a dietitian for more options. What foods are not recommended? Fruits Fruit juice. Cooked, strained fruit. Vegetables Fried potatoes. Canned vegetables. Well-cooked vegetables. Grains White bread. Pasta made with refined flour. White rice. Meats and other proteins Fatty cuts of meat. Fried chicken or fried fish. Dairy Milk. Yogurt. Cream cheese. Sour cream. Fats and oils [place]. Beverages Soft drinks. Other foods Cakes and pastries. The items listed above may not be a complete list of foods and beverages to avoid. Contact a dietitian for more information. Summary Fiber is a type of carbohydrate. It is found in fruits, vegetables, whole grains, and beans. There are many health benefits of eating a high-fiber diet, such as preventing constipation, lowering blood cholesterol, helping with weight loss, and reducing your risk of heart disease, diabetes, and certain cancers. Gradually increase your intake of fiber. Increasing too fast can result in cramping, bloating, and gas. Drink plenty of water while you increase your fiber. The best sources of fiber include whole fruits and vegetables, whole grains, nuts, seeds, and beans. This information is not intended to replace advice given to you by your health care provider. Make sure you discuss any questions you have with your health care provider. Document Released: 11/01/2006 Document Revised: 09/05/2018 Document Reviewed: 09/05/2018 [employer] Patient Education 2020 [employer]. 06/09/2022 10:13:34 Hemorrhoids Hemorrhoids Hemorrhoids are swollen veins in and around the rectum or anus. There are two types of hemorrhoids: Internal hemorrhoids. These occur in the veins that are just inside the rectum. They may poke through to the outside and become irritated and painful. External hemorrhoids. These occur in the veins that are outside the anus and can be felt as a painful swelling or hard lump near the anus. Most hemorrhoids do not cause serious problems, and they can be managed with home treatments such as diet and lifestyle changes. If home treatments do not help the symptoms, procedures can be done to shrink or remove the hemorrhoids. What are the causes? This condition is caused by increased pressure in the anal area. This pressure may result from various things, including: Constipation. Straining to have a bowel movement. Diarrhea. . Obesity. Sitting for long periods of time. Heavy lifting or other activity that causes you to strain. Anal sex. Riding a bike for a long period of time. What are the signs or symptoms? Symptoms of this condition include: Pain. Anal itching or irritation. Rectal bleeding. Leakage of stool (feces). Anal swelling. One or more lumps around the anus. How is this diagnosed? This condition can often be diagnosed through a visual exam. Other exams or tests may also be done, such as: An exam that involves feeling the rectal area with a gloved hand (digital rectal exam). An exam of the anal canal that is done using a small tube (anoscope). A blood test, if you have lost a significant amount of blood. A test to look inside the colon using a flexible tube with a camera on the end (sigmoidoscopy or colonoscopy). How is this treated? This condition can usually be treated at home. However, various procedures may be done if dietary changes, lifestyle changes, and other home treatments do not help your symptoms. These procedures can help make the hemorrhoids smaller or remove them completely. Some of these procedures involve surgery, and others do not. Common procedures include: Rubber band ligation. Rubber bands are placed at the base of the hemorrhoids to cut off their blood supply. Sclerotherapy. Medicine is injected into the hemorrhoids to shrink them. Infrared coagulation. A type of light energy is used to get rid of the hemorrhoids. Hemorrhoidectomy surgery. The hemorrhoids are surgically removed, and the veins that supply them are tied off. Stapled hemorrhoidopexy surgery. The surgeon landon the base of the hemorrhoid to the rectal wall. Follow these instructions at home: Eating and drinking Eat foods that have a lot of fiber in them, such as whole grains, beans, nuts, fruits, and vegetables. Ask your health care provider about taking products that have added fiber (fiber supplements). Reduce the amount of fat in your diet. You can do this by eating low-fat dairy products, eating less red meat, and avoiding processed foods. Drink enough fluid to keep your urine pale yellow. Managing pain and swelling Take warm sitz baths for 20 minutes, 3 4 times a day to ease pain and discomfort. You may do this in a bathtub or using a portable sitz bath that fits over the toilet. If directed, apply ice to the affected area. Using ice packs between sitz baths may be helpful. ?Put ice in a plastic bag. ?Place a towel between your skin and the bag. ?Leave the ice on for 20 minutes, 2 3 times a day. General instructions Take xehx-url-qjmkvku and prescription medicines only as told by your health care provider. Use medicated creams or suppositories as told. Get regular exercise. Ask your health care provider how much and what kind of exercise is best for you. In general, you should do moderate exercise for at least 30 minutes on most days of the week (150 minutes each week). This can include activities such as walking, biking, or yoga. Go to the bathroom when you have the urge to have a bowel movement. Do not wait. Avoid straining to have bowel movements. Keep the anal area dry and clean. Use wet toilet paper or moist towelettes after a bowel movement. Do not sit on the toilet for long periods of time. This increases blood pooling and pain. Keep all follow-up visits as told by your health care provider. This is important. Contact a health care provider if you have: Increasing pain and swelling that are not controlled by treatment or medicine. Difficulty having a bowel movement, or you are unable to have a bowel movement. Pain or inflammation outside the area of the hemorrhoids. Get help right away if you have: Uncontrolled bleeding from your rectum. Summary Hemorrhoids are swollen veins in and around the rectum or anus. Most hemorrhoids can be managed with home treatments such as diet and lifestyle changes. Taking warm sitz baths can help ease pain and discomfort. In severe cases, procedures or surgery can be done to shrink or remove the hemorrhoids. This information is not intended to replace advice given to you by your health care provider. Make sure you discuss any questions you have with your health care provider. Document Released: 10/29/2001 Document Revised: 03/29/2020 Document Reviewed: 03/23/2019 [employer] Patient Education 2020 [employer]. 06/09/2022 10:13:31 Diverticulosis Diverticulosis Diverticulosis is a condition that develops when small pouches (diverticula) form in the wall of the large intestine (colon). The colon is where water is absorbed and stool is formed. The pouches form when the inside layer of the colon pushes through weak spots in the outer layers of the colon. You may have a few pouches or many of them. What are the causes? The cause of this condition is not known. What increases the risk? The following factors may make you more likely to develop this condition: Being older than age 60. Your risk for this condition increases with age. Diverticulosis is rare among people younger than age 30. By age 80, many people have it. Eating a low-fiber diet. Having frequent constipation. Being overweight. Not getting enough exercise. Smoking. Taking soai-lzg-jhttwqy pain medicines, like aspirin and ibuprofen. Having a family history of diverticulosis. What are the signs or symptoms? In most people, there are no symptoms of this condition. If you do have symptoms, they may include: Bloating. Cramps in the abdomen. Constipation or diarrhea. Pain in the lower left side of the abdomen. How is this diagnosed? This condition is most often diagnosed during an exam for other colon problems. Because diverticulosis usually has no symptoms, it often cannot be diagnosed independently. This condition may be diagnosed by: Using a flexible scope to examine the colon (colonoscopy). Taking an X-ray of the colon after dye has been put into the colon (barium enema). Doing a CT scan. How is this treated? You may not need treatment for this condition if you have never developed an infection related to diverticulosis. If you have had an infection before, treatment may include: Eating a high-fiber diet. This may include eating more fruits, vegetables, and grains. Taking a fiber supplement. Taking a live bacteria supplement (probiotic). Taking medicine to relax your colon. Taking antibiotic medicines. Follow these instructions at home: Drink 6 8 glasses of water or more each day to prevent constipation. Try not to strain when you have a bowel movement. If you have had an infection before: ?Eat more fiber as directed by your health care provider or your diet and mis specialist (dietitian). ?Take a fiber supplement or probiotic, if your health care provider approves. Take wlhr-hff-fhgcdeu and prescription medicines only as told by your health care provider. If you were prescribed an antibiotic, take it as told by your health care provider. Do not stop taking the antibiotic even if you start to feel better. Keep all follow-up visits as told by your health care provider. This is important. Contact a health care provider if: You have pain in your abdomen. You have bloating. You have cramps. You have not had a bowel movement in 3 days. Get help right away if: Your pain gets worse. Your bloating becomes very bad. You have a fever or chills, and your symptoms suddenly get worse. You vomit. You have bowel movements that are bloody or black. You have bleeding from your rectum. Summary Diverticulosis is a condition that develops when small pouches (diverticula) form in the wall of the large intestine (colon). You may have a few pouches or many of them. This condition is most often diagnosed during an exam for other colon problems. If you have had an infection related to diverticulosis, treatment may include increasing the fiber in your diet, taking supplements, or taking medicines. This information is not intended to replace advice given to you by your health care provider. Make sure you discuss any questions you have with your health care provider. Document Released: 07/29/2005 Document Revised: 10/14/2018 Document Reviewed: 09/20/2017 [employer] Patient Education 2020 [employer]. 06/09/2022 10:13:30 Colon Polyps Colon Polyps Polyps are tissue growths inside the body. Polyps can grow in many places, including the large intestine (colon). A polyp may be a round bump or a mushroom-shaped growth. You could have one polyp or several. Most colon polyps are noncancerous (benign). However, some colon polyps can become cancerous over time. Finding and removing the polyps early can help prevent this. What are the causes? The exact cause of colon polyps is not known. What increases the risk? You are more likely to develop this condition if you: Have a family history of colon cancer or colon polyps. Are older than 50 or older than 45 if you are . Have inflammatory bowel disease, such as ulcerative colitis or Crohn's disease. Have certain hereditary conditions, such as: ?Familial adenomatous polyposis. ?Bahena syndrome. ?Turcot syndrome. ?Peutz Jeghers syndrome. Are overweight. Smoke cigarettes. Do not get enough exercise. Drink too much alcohol. Eat a diet that is high in fat and red meat and low in fiber. Had childhood cancer that was treated with abdominal radiation. What are the signs or symptoms? Most polyps do not cause symptoms. If you have symptoms, they may include: Blood coming from your rectum when having a bowel movement. Blood in your stool. The stool may look dark red or black. Abdominal pain. A change in bowel habits, such as constipation or diarrhea. How is this diagnosed? This condition is diagnosed with a colonoscopy. This is a procedure in which a lighted, flexible scope is inserted into the anus and then passed into the colon to examine the area. Polyps are sometimes found when a colonoscopy is done as part of routine cancer screening tests. How is this treated? Treatment for this condition involves removing any polyps that are found. Most polyps can be removed during a colonoscopy. Those polyps will then be tested for cancer. Additional treatment may be needed depending on the results of testing. Follow these instructions at home: Lifestyle Maintain a healthy weight, or lose weight if recommended by your health care provider. Exercise every day or as told by your health care provider. Do not use any products that contain nicotine or tobacco, such as cigarettes and e-cigarettes. If you need help quitting, ask your health care provider. If you drink alcohol, limit how much you have: ?0 1 drink a day for women. ? 0 2 drinks a day for men. Be aware of how much alcohol is in your drink. In the [place] one drink equals one 12 oz bottle of beer (355 mL), one 5 oz glass of wine (148 mL), or one 1 oz shot of hard liquor (44 mL). Eating and drinking Eat foods that are high in fiber, such as fruits, vegetables, and whole grains. Eat foods that are high in calcium and vitamin D, such as milk, cheese, yogurt, eggs, liver, fish, and broccoli. Limit foods that are high in fat, such as fried foods and desserts. Limit the amount of red meat and processed meat you eat, such as hot dogs, sausage, navarro, and lunch meats. General instructions Keep all follow-up visits as told by your health care provider. This is important. ?This includes having regularly scheduled colonoscopies. ?Talk to your health care provider about when you need a colonoscopy. Contact a health care provider if: You have new or worsening bleeding during a bowel movement. You have new or increased blood in your stool. You have a change in bowel habits. You lose weight for no known reason. Summary Polyps are tissue growths inside the body. Polyps can grow in many places, including the colon. Most colon polyps are noncancerous (benign), but some can become cancerous over time. This condition is diagnosed with a colonoscopy. Treatment for this condition involves removing any polyps that are found. Most polyps can be removed during a colonoscopy. This information is not intended to replace advice given to you by your health care provider. Make sure you discuss any questions you have with your health care provider. Document Released: 07/28/2005 Document Revised: 02/16/2019 Document Reviewed: 02/16/2019 [employer] Patient Education 2020 [employer]. Follow Up Care 05/13/2022 14:18:17 With:Nereyda Gomez CNP Address: When:1 year only if needed [facility] 05-11-2022 Evaluation + Plan note Extrac fernando from: Title:Anesthesia post op endo Author:Jeffrey Gr MD Date:05/11/22 Plan Transfer/ Discharge: Patient can be discharged from PACU when criteria met. Condition good. Extracted from: Title:Anesthesia Pre-Op endo 2 Author:Jeffrey Gr MD Date:05/11/22 Plan [place] [employer] (ASA) physical status classification: Class II. Anesthetic Preoperative Plan Anesthesia: General. , Pt advised of the benefits of obstaining from tobacco products. Anesthetic plan, risks, benefits, and alternatives discussed with the patient and/or family. Patient verbalized understanding. Pt agrees with anesthetic plan and accepts all risks including but not limited to; Bleeding, infection(including covid-19), nerve injury, dental injury, eye injury, headache, low blood pressure, serious problems with the heart and lungs, allergic reactions, and .. [facility]06-27-2022 Hospital Discharge instructions Patient Education 05/11/2022 11:13:39 Colonoscopy, Care After Surgery Vanessa (CUSTOM) Colonoscopy Care After Surgery Please read the instructions outlined below and refer to this sheet in the next few weeks. These discharge instructions provide you with general information on caring for yourself after you leave thespital. Your doctor may also give you specific instructions. While your treatment has been planned according to the most current medical practices available, unavoidable complications occasionally occur. If you have any problems or questions after discharge, please call your doctor. ACTIVITY You may resume your regular activity, but move at a slower pace for the next 24 hours. Take frequent rest periods for the next 24 hours. Walking will help get rid of the air and reduce the bloated feeling in your abdomen (belly). No driving for 24 hours (because of the anesthesia (medicine) used during the test). You may shower. Do not sign any important legal documents or operate any machinery for 24 hours (because of the anesthesia used during the test). NUTRITION Drink plenty of fluids. You may resume your normal diet as instructed by your doctor. Begin with a light meal and progress to your normal diet. Heavy or fried foods are harder to digestand may make you feel nauseated (sick to your stomach). Avoid alcoholic beverages for 24 hours or as instructed. MEDICATIONS You may resume your normal medications unless your doctor tells you otherwise. WHAT YOU CAN EXPECT TODAY Some feelings of bloating in the abdomen. Passage of more gas than usual. Spotting of blood in your stool or on the toilet paper. FOLLOW-UP Your doctor will discuss the results of your test with you. SEEK IMMEDIATE MEDICAL ATTENTION IF: There is more than a spotting of blood in your stool. There is abdominal distention (your abdomen is swollen). There is vomiting. You have a temperature over 101.5 F. There is abdominal pain or discomfort that is severe or gets worse throughout the day. 05/11/2022 11:13:39 Colon Polyps Colon Polyps Polyps are tissue growths inside the body. Polyps can grow in many places, including the large intestine (colon). A polyp may be a round bump or a mushroom-shaped growth. You could have one polyp or several. Most colon polyps are noncancerous (benign). However, some colon polyps can become cancerous over time. Finding and removing the polyps early can help prevent this. What are the causes? The exact cause of colon polyps is not known. What increases the risk? You are more likely to develop this condition if you: Have a family history of colon cancer or colon polyps. Are older than 50 or older than 45 if you are . Have inflammatory bowel disease, such as ulcerative colitis or Crohn's disease. Have certain hereditary conditions, such as: ?Familial adenomatous polyposis. ?Bahena syndrome. ?Turcot syndrome. ?Peutz Jeghers syndrome. Are overweight. Smoke cigarettes. Do not get enough exercise. Drink too much alcohol. Eat a diet that is high in fat and red meat and low in fiber. Had childhood cancer that was treated with abdominal radiation. What are the signs or symptoms? Most polyps do not cause symptoms. If you have symptoms, they may include: Blood coming from your rectum when having a bowel movement. Blood in your stool. The stool may look dark red or black. Abdominal pain. A change in bowel habits, such as constipation or diarrhea. How is this diagnosed? This condition is diagnosed with a colonoscopy. This is a procedure in which a lighted, flexible scope is inserted into the anus and then passed into the colon to examine the area. Polyps are sometimes found when a colonoscopy is done as part of routine cancer screening tests. How is this treated? Treatment for this condition involves removing any polyps that are found. Most polyps can be removed during a colonoscopy. Those polyps will then be tested for cancer. Additional treatment may be needed depending on the results of testing. Follow these instructions at home: Lifestyle Maintain a healthy weight, or lose weight if recommended by your health care provider. Exercise every day or as told by your health care provider. Do not use any products that contain nicotine or tobacco, such as cigarettes and e-cigarettes. If you need help quitting, ask your health care provider. If you drink alcohol, limit how much you have: ?0 1 drink a day for women. ? 0 2 drinks a day for men. Be aware of how much alcohol is in your drink. In the [place] one drink equals one 12 oz bottle of beer (355 mL), one 5 oz glass of wine (148 mL), or one 1 oz shot of hard liquor (44 mL). Eating and drinking Eat foods that are high in fiber, such as fruits, vegetables, and whole grains. Eat foods that are high in calcium and vitamin D, such as milk, cheese, yogurt, eggs, liver, fish, and broccoli. Limit foods that are high in fat, such as fried foods and desserts. Limit the amount of red meat and processed meat you eat, such as hot dogs, sausage, navarro, and lunch meats. General instructions Keep all follow-up visits as told by your health care provider. This is important. ?This includes having regularly scheduled colonoscopies. ?Talk to your health care provider about when you need a colonoscopy. Contact a health care provider if: You have new or worsening bleeding during a bowel movement. You have new or increased blood in your stool. You have a change in bowel habits. You lose weight for no known reason. Summary Polyps are tissue growths inside the body. Polyps can grow in many places, including the colon. Most colon polyps are noncancerous (benign), but some can become cancerous over time. This condition is diagnosed with a colonoscopy. Treatment for this condition involves removing any polyps that are found. Most polyps can be removed during a colonoscopy. This information is not intended to replace advice given to you by your health care provider. Make sure you discuss any questions you have with your health care provider. Document Released: 07/28/2005 Document Revised: 02/16/2019 Document Reviewed: 02/16/2019 [employer] Patient Education 2020 [employer]. 05/11/2022 11:13:39 Diverticulosis MAGR (CUSTOM) Diverticulosis Many people have small pouches in their colon called diverticulum. The diverticulum bulge outward through weak spots in the colon. You could have one or more of these pouches in the colon. The condition of having these pouches in the colon is called diverticulosis or diverticular disease. Diverticulosis is usually diagnosed by tests to evaluate something else. For example, you may have had a colonoscopy to screen for colon cancer when the diverticulosis was found. Most people with diverticulosis do not have any discomfort or problems. If symptoms develop, they may include mild cramps, bloating, and constipation. A complication of this condition is called diverticulitis. This is when the diverticulum become inflamed and infected. How to treat diverticulosis: Increasing the amount of fiber in the diet may reduce symptoms of diverticulosis and prevent complications such as diverticulitis (infected diverticuli). Fiber keeps stool soft and lowers pressure inside the colon so that bowel contents can move througheasily. You should eat 20 to 35 grams of fiber each day. The table below shows the amount of fiber in some foods that you can easily add to your diet. Adding fiber slowly may decrease the bloating and fullness sometimes felt with an immediate high fiber diet. The doctor may also recommend taking a fiber product such as Citrucel or Metamucil once a day. In the past people with diverticulosis were to avoid nuts, corn, and seeds. This has not been foundto be true. If you find that certain foods create cramping or bloating, avoid that food. Foods high in fiber include: Fresh fruits, fresh vegetables, legumes (beans), whole wheat bread, bran muffins or cereal, and nuts. See the table below for examples of high fiber foods. Remember, your goal is 20- 35 grams per day. Amount of fiber in different foods Food Serving Grams of fiber Fruits Apple (with skin) 1 medium apple 4.4 Banana 1 medium banana 3.1 Oranges 1 orange 3.1 Prunes 1 cup, pitted 12.4 Juices Apple, unsweetened, w/added ascorbic acid 1 cup 0.5 Grapefruit, white, canned, sweetened 1 cup 0.2 Grape, unsweetened, w/added ascorbic acid 1 cup 0.5 [place] 1 cup 0.7 Vegetables Cooked Green beans 1 cup 4.0 Carrots 1/2 cup sliced 2.3 Peas 1 cup 8.8 Potato (baked, with skin) 1 medium potato 3.8 Raw Warren (with peel) 1 cucumber 1.5 Lettuce 1 cup shredded 0.5 Tomato 1 medium tomato 1.5 Spinach 1 cup 0.7 Legumes Baked beans, canned, no salt added 1 cup 13.9 Kidney beans, canned 1 cup 13.6 Ware beans, canned 1 cup 11.6 Lentils, boiled 1 cup 15.6 Breads, pastas, flours Bran muffins 1 medium muffin 5.2 Oatmeal, cooked 1 cup 4.0 White bread 1 slice 0.6 Whole-wheat bread 1 slice 1.9 Pasta and rice, cooked Macaroni 1 cup 2.5 Rice, brown 1 cup 3.5 Rice, white 1 cup 0.6 Spaghetti (regular) 1 cup 2.5 Nuts Almonds 1/2 cup 8.7 Peanuts 1/2 [address] [facility] 2013. SEEK IMMEDIATE MEDICAL CARE IF: You develop abdominal (belly) pain. An oral temperature above _ 101 F__develops. Repeated vomiting occurs. Blood is being passed in stools (bright red or black tarry stools). You develop any bowel problems or changes which you have not had before. Extra Information: To learn how much fiber and other nutrients are in different foods, visit the [place] Department of Agriculture (USDA) National Nutrient Database at: http://www.nal.usda.gov/fnic/foodcomp/search/ Created using data from the USDA National Nutrient Database for Standard Reference. Available at http://www.nal.usda.gov/fnic/foodcomp/search/. Information adapted from: ExitCare Patient Information 2009 [employer]. [employer] 2012 http://www.MiniBrake/contents/yybajksvgweo-qazhxvn-xekfnd-the-basics Follow Up Care 03/31/2022 10:27:32 With:Napoleon MENDEZ Address: [address] [place] [address] [address] [place] [address] Business (1) When: Unknown Comments:office will call for follow up [facility]05-17-2022 Hospital Discharge instructions Patient Education 03/31/2022 09:58:01 Colonoscopy, Adult Colonoscopy, Adult A colonoscopy is an exam to look at the entire large intestine. During the exam, a lubricated, flexible tube that has a camera on the end of it is inserted into the anus and then passed into the rectum, colon, and other parts of the large intestine. You may have a colonoscopy as a part of normal colorectal screening or if you have certain symptoms, such as: Lack of red blood cells (anemia). Diarrhea that does not go away. Abdominal pain. Blood in your stool (feces). A colonoscopy can help screen for and diagnose medical problems, including: Tumors. Polyps. Inflammation. Areas of bleeding. Tell a health care provider about: Any allergies you have. All medicines you are taking, including vitamins, herbs, eye drops, creams, and [id number] medicines. Any problems you or family members have had with anesthetic medicines. Any blood disorders you have. Any surgeries you have had. Any medical conditions you have. Any problems you have had passing stool. What are the risks? Generally, this is a safe procedure. However, problems may occur, including: Bleeding. A tear in the intestine. A reaction to medicines given during the exam. Infection (rare). What happens before the procedure? Eating and drinking restrictions Follow instructions from your health care provider about eating and drinking, which may include: A few days before the procedure follow a low-fiber diet. Avoid nuts, seeds, dried fruit, raw fruits, and vegetables. 1 3 days before the procedure follow a clear liquid diet. Drink only clear liquids, such as clear broth or bouillon, black coffee or tea, clear juice, clear soft drinks or sports drinks, gelatin dessert, and popsicles. Avoid any liquids that contain red or purple dye. On the day of the procedure do not eat or drink anything starting 2 hours before the procedure, or within the time period that your health care provider recommends. Up to 2 hours before the procedure, you may continue to drink clear liquids, such as water or clear fruit juice. Bowel prep If you were prescribed an oral bowel prep to clean out your colon: Take it as told by your health care provider. Starting the day before your procedure, you will needto drink a large amount of medicated liquid. The liquid will cause you to have multiple loose stools until your stool is almost clear or light green. If your skin or anus gets irritated from diarrhea, you may use these to relieve the irritation: ?Medicated wipes, such as adult wet wipes with aloe and vitamin E. ?A skin-soothing product like petroleum jelly. If you vomit while drinking the bowel prep, take a break for up to 60 minutes and then begin the bowel prep again. If vomiting continues and you cannot take the bowel prep without vomiting, call yourhealth care provider. To clean out your colon, you may also be given: ?Laxative medicines. ?Instructions about how to use an enema. General instructions Ask your health care provider about: ?Changing or stopping your regular medicines or supplements. This is especially important if you are taking iron supplements, diabetes medicines, or blood thinners. ?Taking medicines such as aspirin and ibuprofen. These medicines can thin your blood. Do not take these medicines before the procedure if your health care provider tells you not to. Plan to have someone take you home from the hospital or clinic. What happens during the procedure? An IV may be inserted into one of your veins. You will be given medicine to help you relax (sedative). To reduce your risk of infection: ?Your health care team will wash or sanitize their hands. ?Your anal area will be washed with soap. You will be asked to lie on your side with your knees bent. Your health care provider will lubricate a long, thin, flexible tube. The tube will have a camera and a light on the end. The tube will be inserted into your anus. The tube will be gently eased through your rectum and colon. Air will be delivered into your colon to keep it open. You may feel some pressure or cramping. The camera will be used to take images during the procedure. A small tissue sample may be removed to be examined under a microscope (biopsy). If small polyps are found, your health care provider may remove them and have them checked for cancer cells. When the exam is done, the tube will be removed. The procedure may vary among health care providers and hospitals. What happens after the procedure? Your blood pressure, heart rate, breathing rate, and blood oxygen level will be monitored until themedicines you were given have worn off. Do not drive for 24 hours after the exam. You may have a small amount of blood in your stool. You may pass gas and have mild abdominal cramping or bloating due to the air that was used to inflate your colon during the exam. It is up to you to get the results of your procedure. Ask your health care provider, or the department performing the procedure, when your results will be ready. Summary A colonoscopy is an exam to look at the entire large intestine. During a colonoscopy, a lubricated, flexible tube with a camera on the end of it is inserted into the anus and then passed into the colon and other parts of the large intestine. Follow instructions from your health care provider about eating and drinking before the procedure. If you were prescribed an oral bowel prep to clean out your colon, take it as told by your health care provider. After your procedure, your blood pressure, heart rate, breathing rate, and blood oxygen level will be monitored until the medicines you were given have worn off. This information is not intended to replace advice given to you by your health care provider. Make sure you discuss any questions you have with your health care provider. Document Released: 10/29/2001 Document Revised: 08/24/2018 Document Reviewed: 01/12/2017 [employer] Patient Education 2020 [employer]. Follow Up Care 03/23/2022 12:11:50 With:Nereyda Gomez CNP Address: When:1 month [facility] evaluation + Plan note Future Appointments Appointment Date:05/25/2022 08:45:00 AM Scheduled Provider: Location:[facility] Appointment Type:Surgery [facility] Dig[facility] Evaluation + Plan note Future Appointments Appointment Date:06/10/2023 10:40:00 AM Scheduled Provider:Nereyda Gomez CNP [place] Appointment Type:[facility] Follow Up Future Scheduled Tests Laboratory* Fecal WBC Lactoferrin 04/13/23 * Giardia lamblia, Direct Detection EIA 04/13/23 * O & P Exam, Routine 04/13/23 * Clostridium Difficile PCR 04/13/23 * Enteric Panel by PCR 04/13/23 [facility] Evaluation + Plan note Future Appointments Appointment Date:06/10/2023 10:40:00 AM Scheduled Provider:Nereyda Gomez CNP Location[facility] Appointment Type:BAD Follow Up Diagnostic Tests Pending * O & P Exam, Routine 04/15/23 * Giardia lamblia, Direct Detection [facility] App[facility]ments Appointment Date:09/13/2023 10:40:00 AM Scheduled Provider:Nereyda Gomez CNP Location:[facility] Appointment Type:BADH Follow Up [facility] Health Evaluation + Plan note Future Appointments Appointment Date:10/14/2023 02:20:00 PM Scheduled Provider:Nereyda Gomez CNP Location:[facility] Appointment Type:BAD Follow Up Future Scheduled Tests Laboratory* CBC w/ Auto Diff 10/01/23 * Comprehensive Metabolic Panel 10/01/23 * Thyroid Stimulating Hormone 10/01/23 [facility] Dig[facility] Health Evaluation + Plan note Future Appointments Appointment Date:12/09/2023 02:00:00 PM Scheduled Provider:Nereyda Gomez CNP Location:[facility] Appointment Type:BAD Follow Up Future Scheduled Tests Laboratory* CBC w/ Auto Diff 10/01/23 * Comprehensive Metabolic Panel 10/01/23 * Thyroid Stimulating Hormone 10/01/23 [facility] Hospital course Narrative No data available for this section [facility] Hospital Discharge instructions No data available for this section [facility] No data available for this section [facility] Summary Purpose Family History No Family History Records FoundNo Family History Records Found No data available for this section No data available for this section No data available for this section No data available for this section No Family History Records FoundNo Family History Records FoundNo Family History Records Found Advance Directives No Advanced Directives Records FoundNo Advanced Directives Records FoundNo Advanced Directives Records FoundNo Advanced Directives Records FoundNo Advanced Directives Records Found Additional Source Comments (unrecognized sect ion and content) No Status Records FoundNo Status Records FoundNo Status Records FoundNo Status Records FoundNo Status Records Found INFORMATION SOURCE (unrecogn ized section and content) DATE CREATED AUTHOR 02/09/2019 [facility] DATE CREATED AUTHOR AUTHOR'S ORGANIZ ATION 03/28/2023 [facility] DATE CREATED AUTHOR AUTHOR'S ORGANIZ ATION 12/29/2023 [facility] DATE CREATED AUTHOR AUTHOR'S ORGANIZ ATION 01/24/2024 Romero Nando [facility] DATE CREATED AUTHOR AUTHOR'S ORGANIZ ATION 02/11/2024 [facility] EPIC Care Team (unrecognized sect ion and content) Personnel Name: Van Sung MD Address: [address] [place] [address] Personnel Name: Van Sung MD Address: [address] [place] [address] Personnel Name: Van Sung MD Address: Address: [address] [place] [address] Personnel Name: Van Sung MD Address: Address: [address] [place] [address] Personnel Name: Van Sung MD Address: Address: [address] [place] [address] Personnel Name: Van Sung MD Address: Address: [address] [place] [address] Personnel Name: Van Sung MD Address: Address: [address] [place] [address] Personnel Name: Van Sung MD Address: Address: [address] [place] [address] Personnel Name: Van Sung MD Address: Address: [address] [place] [address] Personnel Name: Van Sung MD Address: Address: [address] [place] [address] FOR RECORDS PERTAINING TO PATIENTS WHO ARE OR HAVE BEEN ENROLLED IN A CHEMICAL DEPENDENCY/SUBSTANCEABUSE PROGRAM, SOME INFORMATION MAY BE OMITTED. This clinical summary was aggregated from multiple sources. Caution should be exercised in using it in the provision of clinical care. This summary normalizes information from multiple sources, and as a consequence, information in this document may materially change the coding, format and clinical context of patient data. In addition, data may be omitted in some cases. CLINICAL DECISIONS SHOULD BE BASED ON THE PRIMARY CLINICAL RECORDS. [facility]. provides no warranty or guarantee of the accuracy or completeness of information in this document.
--- NOTE | 2024-02-17 08:00 | CA_ITS ---
Patient Name: NADIR HEREDIA MR#: [id number] : 1940 Exam Date: 02/17/2024 Ordering Doctor: DR CLARIBEL CISNEROS M.D. ECHOCARDIOGRAM REPORT PROCEDURE: CA ECHO DOPPLER COMPLETE INDICATIONS: Aortic stenosis, h/o congestive heart failure, hypertension, diabetes COMPARISON: None. DESCRIPTION: COMPLETE ECHOCARDIOGRAM Real-time transthoracic echocardiography with 2D, M-mode, spectral and color flow Doppler performed. QUALITY: Technical quality was good. 72 , 195#, BSA 2.11 m2, BP 128/72 LEFT VENTRICLE: Normal chamber size. Moderate concentric left ventricular hypertrophy. Normal systolic function. LV EF: Normal left ventricular ejection fraction, (>55%). DIASTOLIC: Not adequately assessed due to heart rhythm. ATRIAL SEPTUM: Visually appears intact. LEFT ATRIUM: Severe dilatation. RIGHT ATRIUM: Severe dilatation. RIGHT VENTRICLE: Moderate dilatation. Normal systolic function. TRICUSPID VALVE: Normal mobility and thickness. No stenosis with mild to moderate regurgitation. Doppler studies reveal severely (>60) elevated right sided pressures. RVSP 80 mmHg MITRAL VALVE: Normal mobility and thickness. No evidence of mitral valve stenosis. Moderate mitral annular calcification. Mild mitral regurgitation. AORTIC VALVE: Normal trileaflet appearance. Severely calcified aortic valve. Severely diminished mobility. Doppler velocity suggest moderate aortic valve stenosis. DVI 0.38, MELY 1.3 cm2, mean gradient 21 mmHg. Trivial aortic regurgitation. AORTIC ROOT: Normal diameter and appearance. PULMONIC VALVE: Normal thickness and mobility. No stenosis. Mild regurgitation. PERICARDIUM: Moderate circumferential pericardial effusion. IVC: IVC is dilated (2.5 cm) with no collapse. PLEURA: CONCLUSION: 1. Normal left ventricular systolic function. LVEF is 55 to 60%. 2. Moderately dilated right ventricle with normal systolic function. 3. Severe biatrial dilatation. 4. Moderate aortic valve stenosis. 5. Mild mitral regurgitation. 6. Mild to moderate tricuspid regurgitation. 7. Severely elevated right-sided pressures. RVSP is 80 mmHg. 8. Moderate circumferential pericardial effusion. Adult Echocardiography Procedure Report Left Ventricle LVEDD (3.7 - 5.6 cm): 3.71 cm LVESD (2.2 - 4.0 cm): 2.71 cm LVIVS thickness (0.6 - 1.2 cm): 1.72 cm LVPW thickness (0.5 - 1.0 cm): 1.37 cm LVOT Max Gradient: 5.10 mm[Hg], 3.92 mm[Hg] LVOT Area (cm2): 1.06 m/s Peak Velocity (LVOT): 1.13 m/s, 0.99 m/s Mean Velocity (LVOT): 0.79 m/s LVOT Diameter 2.08 cm Left Atrium LA Volume Index (2D A2C): 99.95 ml/m2 Left Atrium Systolic Dimension: 5.20 cm Mitral Valve Mitral Valve E-Wave Peak Velocity: 0.93 m/s Right Ventricle Aorta AO Root Diam: 3.59 cm Aortic Valve AoV Area (Peak Kyle): 1.35 cm2, 1.32 cm2, 1.22 cm2 AoV Area (VTI): 1.28 cm2, 1.27 cm2, 1.29 cm2 Peak Velocity(Antegrade Flow): 2.91 m/s, 2.76 m/s, 2.37 m/s, 2.64 m/s Peak Gradient(Antegrade Flow): 33.84 mm[Hg], 30.43 mm[Hg], 22.40 mm[Hg], 27.79 mm[Hg] Mean Velocity(Antegrade Flow): 2.18 m/s, 2.13 m/s, 1.80 m/s, 1.95 m/s Mean Gradient(Antegrade Flow): 20.65 mm[Hg], 19.99 mm[Hg], 14.60 mm[Hg], 17.04 mm[Hg] Velocity Time Integral: 65.88 cm, 57.56 cm, 54.75 cm, 66.84 cm Tricuspid Valve Peak Velocity (Regurgitant Flow): 4.20 m/s, 3.59 m/s, 4.25 m/s Pulmonic Valve Peak Velocity: 0.89 m/s Peak Gradient: 3.41 mm[Hg], 2.97 mm[Hg] Right Atrium Right Atrium Systolic Pressure: 220.88 ml, 220.88 ml Dictated by: Claribel Cisneros M.D. on 02/17/2024 at 16:34 Approved by: Claribel Cisneros M.D. on 02/17/2024 at 16:44
== END 2024-02-17 07:52 | disposition home or self-care (01) ==
LOC: CARD 07:52
PROVIDERS: PCP Family Medicine; Visit Provider Internal Medicine Interventional Cardiology
DX: I35.0 Nonrheumatic aortic (valve) stenosis (principal)
CPT/HCPCS: 93306

== ENCOUNTER 2024-03-13 07:26 | Outpatient (OUT) | payer MEDICARE, SELFPAY ==
--- NOTE | 2024-03-13 07:30 | CA_ITS ---
Patient Name: NADIR HEREDIA MR#: [id number] : 1940 Exam Date: 03/13/2024 Ordering Doctor: DR CLARIBEL PUGA M.D. ECHOCARDIOGRAM REPORT PROCEDURE: CA ECHO DOPPLER COMPLETE INDICATIONS: Diastolic heart failure, hypertension, diabetes COMPARISON: None. DESCRIPTION: COMPLETE ECHOCARDIOGRAM Real-time transthoracic echocardiography with 2D, M-mode, spectral and color flow Doppler performed. QUALITY: Technical quality was good. 72 , 192#, BSA 2.09 m2 LEFT VENTRICLE: Normal chamber size. Mild concentric left ventricular hypertrophy. LV EF: Global left ventricular systolic function is hyperdynamic; visually estimated ejection fraction 65 to 70%. No segmental wall motion abnormalities. DIASTOLIC: Diastolic dysfunction. ATRIAL SEPTUM: Visually appears intact. LEFT ATRIUM: Severe dilatation. RIGHT ATRIUM: Severe dilatation. RIGHT VENTRICLE: Moderate dilatation. Normal right ventricular systolic function. TRICUSPID VALVE: Normal mobility and thickness. Moderate tricuspid regurgitation. Doppler studies reveal severely (>60) elevated right sided pressures. RVSP 75 mmHg MITRAL VALVE: Normal mobility and thickness. No evidence of mitral valve stenosis. Mild mitral annular calcification. Mild to moderate mitral regurgitation. AORTIC VALVE: Normal trileaflet appearance. Severely calcified aortic valve with diminished mobility. Doppler velocity suggests mild to moderate aortic valve stenosis. DVI 0.3, MELY 1.4 cm2. Mild aortic regurgitation. AORTIC ROOT: Normal diameter and appearance. Ascending aorta and aortic arch normal in size. PULMONIC VALVE: Normal thickness and mobility. No stenosis. Mild regurgitation. PERICARDIUM: There is a moderate circumferential pericardial effusion. IVC: IVC is dilated (2.5 cm) with no collapse. CONCLUSION: 1. Global left ventricular systolic function is hyperdynamic; visually estimated ejection fraction is 65 to 70% 2. The right ventricle is moderately dilated with normal systolic function 3. Diastolic dysfunction 4. Severe biatrial enlargement 5. Mildly increased left ventricular wall thickness 6. Moderate tricuspid regurgitation 7. Severely elevated right ventricular systolic pressure; RVSP 75 mmHg 8. Mild to moderate mitral regurgitation 9. Mild to moderate aortic valve stenosis; mild aortic regurgitation 10. Mild pulmonic regurgitation 11. Moderate circumferential pericardial effusion with no obvious signs of tamponade by 2D imaging Adult Echocardiography Procedure Report Left Ventricle LVEDD (3.7 - 5.6 cm): 4.50 cm LVESD (2.2 - 4.0 cm): 3.29 cm LVIVS thickness (0.6 - 1.2 cm): 1.07 cm LVPW thickness (0.5 - 1.0 cm): 1.14 cm e': 0.06 m/s E - e': 16.27 LVOT Max Gradient: 2.81 mm[Hg] LVOT Area (cm2): 0.84 m/s Peak Velocity (LVOT): 0.84 m/s Mean Velocity (LVOT): 0.57 m/s LVOT Diameter 2.24 cm Left Atrium LA Volume Index (2D A2C): 78.13 ml/m2 Left Atrium Systolic Dimension: 5.82 cm Mitral Valve MV E to A Ratio: 3.83 Mitral Valve A-Wave Peak Velocity: 0.26 m/s Mitral Valve E-Wave Peak Velocity: 1.00 m/s Right Ventricle Aorta AO Root Diam: 3.88 cm Ascending Ao Diam: 3.18 cm Aortic Valve AoV Area (Peak Kyle): 1.24 cm2, 1.39 cm2 AoV Area (VTI): 1.36 cm2, 1.63 cm2 Peak Velocity(Antegrade Flow): 2.37 m/s, 2.65 m/s Peak Gradient(Antegrade Flow): 22.56 mm[Hg], 28.06 mm[Hg] Mean Velocity(Antegrade Flow): 1.61 m/s, 1.76 m/s Mean Gradient(Antegrade Flow): 11.63 mm[Hg], 14.87 mm[Hg] Velocity Time Integral: 55.11 cm, 66.26 cm Tricuspid Valve Peak Velocity (Regurgitant Flow): 3.89 m/s, 3.66 m/s Pulmonic Valve Peak Gradient: 2.27 mm[Hg], 2.15 mm[Hg] Right Atrium Right Atrium Systolic Pressure: 193.21 ml, 193.21 ml Dictated by: Rohini Traylor M.D. on 03/15/2024 at 15:21 Approved by: Rohini Traylor M.D. on 03/15/2024 at 15:27
--- OUTSIDE RECORDS SUMMARY | 2024-03-13 07:32 | XMS_ITS | CCD ---
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 Care Customer Leader Name Role Phone PHYSICIAN, DEFAULT Admitting Unavailable PHYSICIAN, DEFAULT Attending Unavailable VAN SUNG Primary Care Unavailable Van Sung Primary Care Physician JANETY ., DR ARAUJO Primary Care Unavailable HOY ., DR ARAUJO Consulting Unavailable HOY ., DR ARAUJO Attending Unavailable HOY ., DR ARAUJO Admitting Unavailable ZIEBER, DR CLOVER Zimmer Consulting Unavailable [place], DR CRAMER Consulting Unavailable HOY ., DR ARAUJO Primary Care Unavailable [place], DR CRAMER Attending Unavailable [place], DR CRAMER Admitting Unavailable [place], DR CRAMER Consulting Unavailable HOY ., DR ARAUJO Primary Care Unavailable [place], DR CRAMER Attending Unavailable [place], DR CRAMER Admitting Unavailable HOY ., DR ARAUJO Consulting Unavailable HOY ., DR ARAUJO Primary Care Unavailable HOY ., DR ARAUJO Attending Unavailable HOY ., DR ARAUJO Admitting Unavailable [place], DR CRAMER Consulting Unavailable HOY ., DR ARAUJO Primary Care Unavailable [place], DR CRAMER Attending Unavailable [place], DR CRAMER Admitting Unavailable HOY ., DR [...] Unavailable HOY ., DR ARAUJO Admitting Unavailable HOY ., DR ARAUJO Consulting Unavailable HOY ., DR ARAUJO Attending Unavailable HOY ., DR ARAUJO Admitting Unavailable HOY ., DR ARAUJO Primary Care Unavailable NADERESHERICE Zimmer Consulting Unavailable HARLEY, MYNOR Consulting Unavailable Yefri Dwyer Consulting Unavailable FRANCISCO ZELAYA Consulting Unavailable LI ROBERTS Consulting Unavailable Patricia, Nereyda A Admitting Unavailable Patricia, Nereyda A Attending Unavailable Patricia, Nereyda A Attending Unavailable Patricia, Nereyda A Attending Unavailable Patricia, Nereyda A Attending Unavailable Patricia, Nereyda A Attending Unavailable Patricia, Nereyda A Attending Unavailable Patricia, Nereyda A Attending Unavailable Patricia, Nereyda A Attending Unavailable NILJoy, Francisco Zimmer Attending Unavailable Van Sung Referring Unavailable Patricia, Nereyda A Admitting Unavailable Patricia, Nereyda A Attending Unavailable Van Sung Consulting Unavailable MD Van Sung Consulting Unavailable Patricia, Nereyda A Admitting Unavailable Patricia, Nereyda A Attending Unavailable ROBINSON CHICAS Attending Unavailable BEBubba, BARRIE Gil Attending Unavailable ROBINSON CHICAS Attending Unavailable [place], RUTIHE Attending Unavailable MOUKARBEL, CLARIBEL Attending Unavailable SCHUYLERRYDER Attending Unavailable MOUKARBEL, CLARIBEL Attending Unavailable MOUKARBEL, CLARIBEL Attending Unavailable MOUKARBEL, CLARIBEL Attending Unavailable DANA APARICIO Attending Unavailable MOUKAGIANNI, CLARIBEL Referring Unavailable Allergies Allergy Classification Reported Allergen(s) Allergy Type Date of Onset Reaction(s) Facility (14 sources) Aminolevulinic Acid; 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: [aminolevulinic acid] Drug Allergy 11-04-20 13 Unknown [facility] Repository (1 source) NITRO PATCH; 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: [NITRO PATCH] Propensity to adverse reactions (disorder) 03-18-20 12 [facility] Repository (12 sources) Contrast media; 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: [Contrast Dye] Drug allergy Unknown (qualifier value) [facility] (12 sources) Hmg-Coa Reductase Inhibitors (Statins); 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: [statins] Allergy to substance Unknown [facility] (20 sources) Nitroglycerin; 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: [nitroglycerin] Drug Allergy 02-23-20 Unknown (qualifier value) [facility] (2 sources) black walnut pollen extract; 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: [UOMCVOT-FSR-PYQ REDUCTASE INHIBITORS] Drug Allergy 04-21-20 17 [facility] Repository (1 source) Iodine (And Iodine Containting Drugs) Drug allergy (disorder) 05-28-20 16 [facility] Repository (1 source) Aminolevulinic Acid; 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: [aminolevulinic acid] Drug Allergy 11-04-20 13 [facility] Repository (1 source) Nitroglycerin; 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: [Nitroglycerin Patch] Drug Allergy [facility] Repository (1 source) IODINATED CONTRAST MEDIA; 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: [IODINATED CONTRAST MEDIA] Propensity to adverse reactions to drug (disorder) 07-17-20 [facility] Repository Medications Current Medications Medication Drug Class(es) [...] day(s), # 90 cap(s), Refills(s) 0, Pharmacy: [facility]/pharmacy #[id number], 185, cm, 06/10/23 10:45:00 EDT, Height/Length Dosing, 97, kg, 06/10/23 10:45:00 EDT, Weight Dosing Start Date: 06/10/23 Stop Date: 09/08/23 Status: Ordered Start: 08-28-2020 take 1 capsule by mo uth once daily Align 4 mg oral capsule 4 mg = 1 cap(s), Oral, Daily, Take after completing the Antibiotics course, # 28 cap(s), Refills(s) 0, [id number] 185, cm, 08/28/20 12:05:00 EDT, Height/Length [...] Daily Prior to colonoscopy Per physician's instructions, [facility]/pharmacy #[id number], 185, cm, 03/31/22 9:58:00 EDT, Height/Length [...] Date: 01/09/19 Status: Ordered 60 actuat tiotropium 0.60025 mg/actuat inhalation spray (10 sources) Anticholinergic Start: [...] water, # 160 cap(s), Refills(s) 1, Pharmacy: [facility]/pharmacy #[id number], 185, cm, 08/28/20 12:05:00 EDT, Height/Length [...] 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: [CHRONIC KIDNEY DISEASE STAGE 3B] Onset: 07-17-2022 Congestive heart failure; nonhypertensive (4 sources) Chronic diastolic (congestive) heart failure; 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: [Acute on chronic diastolic (congestive) heart failure] Onset: 06-14-2023 Chronic Coronary atherosclerosis and other heart disease (2 sources) Atherosclerotic heart disease of ambler coronary artery without angina pectoris; 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: [Atherosclerotic heart disease of ambler coronary artery without angina pectoris] Onset: 07-17-2022 [...] 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: [ESSENTIAL PRIMARY HYPERTENSION] Onset: 04-30-2022 Chronic Heart valve disorders (7 sources) Nonrheumatic aortic [...] unspecified; 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: [Vitamin D deficiency, unspecified] Onset: 04-07-2023 Chronic Other and unspecified benign neoplasm (16 [...] sources) Constipation 10-01-2023 Episodic Pulmonary heart disease (4 sources) Pulmonary hypertension, unspecified; 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: [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 [...] history of cancer of colon 03-31-2022 Episodic Unclassified (4 sources) CHRN KIDNEY DISEASE [...] fibrillation; 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: [Longstanding persistent atrial fibrillation] Onset: 05-24-2023 Unclassified (1 source) Other pericardial effusion (noninflammatory); [...] unspecified; 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: [Bradycardia, unspecified] Onset: 07-17-2022 Episodic Fluid and electrolyte disorders (5 sources) Hypo-osmolality and hyponatremia; 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: [Hyperkalemia] Onset: 08-27-2022 Episodic Malaise and fatigue (2 sources) Weakness; 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: [Other fatigue] Onset: 04-30-2022 Episodic Other aftercare (1 source) [facility] (current) use of aspirin; 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: [HOE RUNNER CURRENT USE OF ASPIRIN] Onset: 08-27-2022 Episodic Other aftercare (1 source) deputy court (current) use of anticoagulants; 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: [[facility]PC CURRNT USE ANTICOAGULANTS] Onset: 08-27-2022 Episodic Other aftercare (1 source) Other vacuum drier tender (current) drug therapy; 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: [OTH FPC CURRENT DRUG THERAPY] Onset: 08-27-2022 Episodic Other circulatory disease (1 source) Other specified symptoms and signs involving the circulatory and respiratory systems; 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: [OTH SPEC SX SIGNS INVLV CIRC RS] Onset: 06-19-2022 Episodic Residual codes; unclassified (6 sources) Localized edema; 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: [LOCALIZED EDEMA] Onset: 11-02-2022 Episodic Residual codes; unclassified (1 source) Edema, unspecified; 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: [EDEMA UNSPECIFIED] Onset: 08-27-2022 Episodic Unclassified (1 source) CHRN KIDNEY DISEASE STG 3 UNSP; 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: [CHRN KIDNEY DISEASE STG 3 UNSP] Onset: 12-28-2022 Unclassified (1 source) CONTACT W/AND (SUSP) EXPOS COVID-19; 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: [CONTACT W/AND (SUSP) EXPOS COVID-19] Onset: 07-13-2022 Unclassified (1 source) Other pericardial effusion (noninflammatory); 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: [Other pericardial effusion (noninflammatory)] Onset: 05-24-2023 Urinary tract infections (1 source) Urinary tract infection, site not specified; 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: [UTI SITE NOT SPECIFIED] Onset: 08-27-2022 Episodic Results Test Name Value Interpretation Reference Range Facility Office Visiton 03-03-2024 Follow-up visit [id number] Nadir Heredia 1940 M Date Provider Department Center 03/03/2024 CLARIBEL VILLALOBOS [facility] Family History Problem Relation Age of Onset Coronary artery disease Father Family Status - Relation Status Age at Father Level of Service:47180 ID OFFICE/OUTPATIENT ESTABLISHED MOD MDM 30 MIN Reason for Visit and Comments: Follow-up [125352] [facility] 36on 12-29-2023 36 Called and spoke with patient and rescheduled patients appointment from 05/31 to 06/07. [facility] 36on 12-28-2023 36 Called patient lvm to contact the office back to reschedule appointment. [facility] Follow-Upon 11-17-2023 Follow-Up [id number] Nadir Heredia 1940 M Date Provider Department Center 11/17/2023 RUTHIE OWEN [facility] NEPHRO Comprehensiv Family History Problem Relation Age of Onset Coronary artery disease Father Family Status - Relation Status Age at Father Level of Service:40206 ID OFFICE/OUTPATIENT ESTABLISHED MOD MDM 30 MIN () Reason for Visit and Comments: Follow-up [732776] Chronic Kidney Disease [176] [facility] Lab Reportson 10-21-2023 Lab Reports [id number] #1.00TIFF [facility] Gastroenterology Office/Clin ic Noteon 10-18-2023 Gastroenterology Office/Clinic [...] fiber supplem (more content not included)... Normal [facility] Comment on above: Result Comment: Elec tronically [...] PM EST With: Nereyda Gomez CNP Where: [facility] Normal [facility] Patient Educationon 10-14-20 23 Patient Education Gastroenterology [...] as fried or sweet foods. These include montserratian fries, hamburgers, cookies, candies, and soda. ? Drink enough fluid to keep your urine pale yellow. General instructions ? Exercise regularly or as told by your health care provider. Try to do 150 minutes of moderate exercise each week. ? Use the bathroom when you have the urge to go. Do not hold it in. ? Take xgng-oje-yqifhgx and prescription medicines only as told by [...] keep your urine pale yellow. ? Take rxhh-wbe-jrfwnwz and prescription medicines only as told by your health care provider. This includes any fiber supplements. This information is not intended to replace advice given to you by your health care provider. Make sure you discuss any questions you have with your health care provider. Document Revised: 09/18/2020 Document Reviewed: 09/18/2020 [employer]O Patient Education ? 2022 [employer]. [facility] 36on 10-12-2023 36 Patient called to make you aware that he was in [facility] ED on (Wednesday) for SOB. He wanted you to look over his records. I have uploaded them all into his interactive media designer for your review. His BNP is increased to 4000 and was previously 2600 about 1 month ago. Looks like they gave him extra lasix in the ED and recommended he follow up with Dr. Sung outpatient. Can you please review and let me know if you'd like anything done/ordered? Thanks. Normal [facility] XR Abdomen 2 Viewson 023 XR Abdomen [...] MARII Technologist: EDUARDA Technical Comments Radiation Dose: Ka,r in mGy = . DAP = . Normal [facility] Lab Reportson 10-04-2023 Lab Reports [id number] 1#1.00TIFF Normal [facility] RAD - MISCon 10-04-2023 RAD - MISC [id number] #1.00TIFF Normal [facility] Ambulatory Visit Summaryon 1 12-01-2022 Ambulatory Visit Summary NADIR HEREDIA :1940 Visit Date:10/01/2023 Ambulatory Visit Instructions Your Diagnosis Constipation Abdominal cramping Nausea History of colon polyps Family history of colon cancer Your Care Team Attending Physician - Nereyda Gomze CNP Primary Care Physician - Van Sung [...] PM EST With: Nereyda Gomez CNP Where: [facility] Invalid Interpretation Code Abdominal cramping [facility] Consent for Treatmenton 09-15 Consent for Treatment [id number] #1.00TIFF Normal [facility] Gastroenterology Office/Clin ic Noteon 10-01-2023 Gastroenterology Office/Clinic [...] educated t (more content not included)... Normal [facility] Comment on above: Result Comment: Lio madison Signed By: Nereyda Gomez CNP\.mary\Date and Time Signed: 10/01/23 12:54 EST Patient [...] Bulgur wheat. Millet. Quinoa. Bran muffins. Popcorn. Mobile wafer crackers. Meats and other proteins [place] beans, kidney beans, and mendez beans. Soybeans. [...] Cream cheese. Sour cream. Fats and oils [place]. Beverages Soft drinks. Other foods Cakes and [...] provider. Document Revised: (more content not included)... [facility] 36on 09-20-2023 36 Called and spoke with and rescheduled appointment and informed her patient would need to get labs done. [facility] 36 Patients called in to reschedule appointment from 09/08 [facility] Office Visiton 09-17-2023 Follow-up visit [id number] Nadir Heredia 1940 [facility] Provider Department Center 09/17/2023 CLARIBEL VILLALOBOS [facility] Family History Problem Relation Age of Onset Coronary artery disease Father Family Status - Relation Status Age at Father Level of Service:69819 ID OFFICE/OUTPATIENT ESTABLISHED MOD MDM 30-39 MIN Reason for Visit and Comments: Follow-up [478342] [facility] HPon 08-31-2023 [facility] Cardiology - [facility] Clinic Subjective Nadir Heredia is a 83 [...] extremity edema. He was admitted to the [facility] in August 2022 due to hyponatremia, hyperkalemia and acute kidney injury, leukocytosis secondary to COVID-19 causing dehydration. I saw him on 05/24/2023 and the office and he had significant evidence of volume overload by exam and echocardiogram. I intensified his diuretic regimen. He ended up getting admitted to the [facility] with acute heart failure exacerbation and underwent [...] Allergies Allergen Reactions Iodinated Contrast Media Nitroglycerin Zecudrv-Fgv-Aod Reductase Inhibitors Medications Current Outpatient Medications: acyclovir [...] Take 1 ta (more content not included)... [facility] NURSNOTEon 08-31-2023 NURSNOTE Pt performed and passed bedside swallow study. RN educated pt on d/c instructions. RN encouraged pt to voice any questions or concerns. Pt verbalizes no questions or concerns at this time. Pt was wheeled off of unit with all of belongings. [facility] Telephoneon 08-24-2023 Telephone [id number] Nadir Heredia 1940 M Date Provider Department Center 08/24/2023 PapiRABIA Sweet [facility] V[facility] LAB [facility] HeartVAS Family History Problem Relation Age of Onset Coronary artery disease Father Family Status - Relation Status Age at Father [facility] Office Visiton 07-21-2023 Follow-up visit [id number] Nadir Heredia 1940 M Date Provider Department Center 07/21/2023 Parris-CLARIBEL PUGA MILKA [facility] Family History Problem Relation Age of Onset Coronary artery disease Father Family Status - Relation Status Age at Father Level of Service:99333 ID OFFICE/OUTPATIENT ESTABLISHED MOD MDM 30-39 MIN Reason for Visit and Comments: Follow-up [[id number]] [facility] Office Visiton 06-14-2023 Follow-up visit [id number] Nadir Heredia 1940 M Date Provider Department Center 06/14/2023 RYDER RODRÍGUEZ MILKA [facility] Family History Problem Relation Age of Onset Coronary artery disease Father Family Status - Relation Status Age at Father Level of Service:70138 ID OFFICE/OUTPATIENT ESTABLISHED MOD MDM 30-39 MIN [facility] Ambulatory Visit Summaryon 0 06-10-2023 Ambulatory [...] AM EDT With: Nereyda Gomez CNP Where: [facility] Normal [facility] Gastroenterology Office/Clin ic Noteon 06-10-2023 Gastroenterology Office/Clinic Note HPI Staff Nadir is an 83 y.o. male here for 2 month follow up He continues with intermittent diarrhea. He states he's been able to hold stool until reaches bathroom. He states he has terrible gas recently hospitalized at [facility] for heart failure He continues with [...] day(s), # 90 cap(s), Refills(s) 0, Pharmacy: [facility]/pharmacy #6 (more content not included)... Normal [facility] Comment on above: Result Comment: Elec tronically Signed By: Patricia BRITT, Nereyda Marroquin\.br\Date and Time Signed: 06/10/23 11:02 EDT Patient Educationon 06-10-20 23 Patient Education Oncology Colon Polyps Colon polyps [...] liquor (44 mL). General instructions ? Take jnlf-brg-qdervji and prescription medicines only as told by [...] 02/19/2021 D (more content not included)... Normal [facility] Office Visiton 05-24-2023 Follow-up visit [id number] Nadir Heredia 1940 [facility] Provider Department Center 05/24/2023 367-MOUKARBEL, CLARIBEL BH CARD [facility] Family History Problem Relation Age of Onset Coronary artery disease Father Family Status - Relation Status Age at Father Level of Service:29436 ID OFFICE/OUTPATIENT ESTABLISHED MOD MDM 30-39 MIN Normal [facility] Giardia, Direct, EIAon 04-22 G. lamblia Ag IA Ql (Stl) Negative Invalid Interpretation Code Negative [facility] Comment on above: Result Comment: Perf ormed at: [address] [id number] PhD Huan Vyas Performed By: #### 3 [id number], [id number], [id number], [id number], [id number], [id number] ####[facility] [address] [place] [address] O & P EXAM, ROUTINE, REFLEXo n 04-22-2023 Ova and parasites identified Concentration Nom (Stl) Comment Invalid Interpretation Code [facility] Comment on above: Result Comment: No o va, cysts, or parasites seen. One negative specimen does not rule out the possibility of a parasitic infection. Performed at: [address] [id number] PhD Huan Vyas Performed By: #### 3 [id number], [id number], [id number], [id number], [id number], [id number] ####[facility] [address] [place] [address] O & P Exam, Routineon 2022 Ova and parasites identified LM Nom (Unsp spec) Final report Invalid Interpretation Code [facility] Comment on above: Result Comment: Thes e results were obtained using wet preparation(s) and trichrome stained smear. This test does not include testing for Cryptosporidium parvum, Cyclospora, or Microsporidia. Performed at: [address] [id number] PhD Huan Vyas Performed By: #### 3 [id number], [id number], [id number], [id number], [id number], [id number] ####[facility] [address] [place] [address] CDiff PCRon 04-15-2023 CDiff PCR Unable to perform test due to consistency of stool. C. Difficile testing will only be performed on diarrheal (unformed) stool unless ileus due to C. difficile is expected. Reference: Clinical Practice Guidelines for Clostridium difficile Infection in Adults, Infection and Hospital Epidemiology March 2010, Vol 31, No 5. Normal [facility] Cdiff Specimen Acceptable Unacceptable Normal [facility] Comment on above: Performed By: #### 3 [id number], [id number], [id number], [id number], [id number], [id number] ####[facility] [address] [place] [address] Order Cancelled YES Normal [facility] Comment on above: Performed By: #### 3 [id number], [id number], [id number], 72696238, [id number], [id number] ####[facility] [address] [place] [address] Enteric Panel by PCRon 04-15 C. coli+jejuni+upsaliens is DNA SULTANA+non-probe Ql (Stl) Not detected [facility] Comment on above: Result Comment: Test ing was performed utilizing reverse loan inspector (RT), polymerase chain reaction (PCR), and array [...] nulcleic acid test. Performed By: #### 3 [id number], 86578643, [id number], 93596251, [id number], [id number] ####[facility] [address] [place] [address] E. coli stx1+stx2 genes SULTANA+non-probe Ql (Stl) Negative Normal [facility] Comment on above: Performed By: #### 3 6153870, [id number], [id number], 94158525, [id number], [id number] ####[facility] [address] [place] [address] Enteric Panel by PCR Negative Normal [facility] Enteric Panel Intrl QC Pass Normal [facility] Comment on above: Result Comment: Test ing was performed utilizing reverse loan inspector (RT), polymerase chain reaction (PCR), and array [...] 1 and 2. Performed By: #### 3 [id number], 86637188, [id number], 28277937, [id number], [id number] ####[facility] [address] [place] [address] Norovirus genogroup I+II RNA SULTANA+non-probe Ql (Stl) Not detected Normal [facility] Comment on above: Performed By: #### 3 3565550, 47305581, [id number], 52711864, [id number], 62011347 ####[facility] [address] [place] [address] Rotavirus A RNA SULTANA+non-probe Ql (Stl) Not detected Normal [facility] Comment on above: Performed By: #### 3 6842950, 52304879, [id number], 39671792, 9564626642, 52602820 ####[facility] [address] [place] [address] S. enterica+bongori DNA SULTANA+non-probe Ql (Stl) Not detected Normal [facility] Comment on above: Result Comment: This test result should be correlated with clinical presentations and medical history by a healthcare provider to determine its clinical significance. Performed By: #### 3 [id number], 01177192, [id number], 23601216, [id number], [id number] ####[facility] [address] [place] [address] Shigella species+EIEC invasion plasmid antigen H ipaH gene SULTANA+non-probe Ql (Stl) Not detected Normal [facility] Comment on above: Performed By: #### 3 3907385, 35973388, [id number], 91848809, [id number], 66755533 ####[facility] [address] [place] [address] V. cholerae+parahaemolyt icus+vulnificus DNA SULTANA+non-probe Ql (Stl) Not detected Normal [facility] Comment on above: Performed By: #### 3 5585564, 76220333, [id number], 42801375, 8624689114, [id number] ####[facility] [address] [place] [address] Y. enterocolitica DNA SULTANA+non-probe Ql (Stl) Not detected Normal [facility] Comment on above: Performed By: #### 3 7490850, 87942548, [id number], 51326293, [id number], 22807751 ####[facility] [address] [place] [address] Fecal WBC Lactoferrinon Fecal WBC Lactoferrin Negative Normal Negative [facility] Comment on above: Result Comment: The semi-quantitative detection of elevated levels of fecal lactoferrin is a marker for fecal leukocytes and an indication of intestinal inflammation. Performed By: #### 3 [id number], 85493589, [id number], 96792368, [id number], 73591093 ####[facility] [address] [place] [address] MICRO OTHER TESTSOrdered By: Francisco Bolanos on 04-15-2023 Fecal WBC Lactoferrin Negative (04/15/23 7:00 AM) Normal Negative [facility] Man Sero Ambulatory Visit Summaryon 0 04-13-2023 Ambulatory Visit Summary NADRI HEREDIA :1940 Visit Date:04/13/2023 Ambulatory Visit Instructions [...] AM EDT With: Nereyda Gomez CNP Where: [facility] Normal [facility] Auto Diffon 04-13-2023 Basophils/100 WBC (Bld) 0.9 % Normal 0.0-2.0 [facility] Comment on above: Order Comment: Order Added by Discern Expert. Performed By: #### 1 [id number], 0081115, 4079375, [id number] ####[place] [id number] [place] [address] Basophils/Leukocytes Auto (Bld) [Pure # fraction] 0.1 E9/L Normal 0.0-0.2 [facility] Comment on above: Order Comment: Order Added by Discern Expert. Performed By: #### 1 [id number], 1265995, 7210651, 3152027 ####[address] [address] Eosinophils/100 WBC (Bld) 5.1 % Normal 0.0-8.0 [facility] Comment on above: Order Comment: Order Added by Discern Expert. Performed By: #### 1 [id number], 6753193, 6095229, 1685343 ####[address] [address] Eosinophils/Leukocyte s Auto (Bld) [Pure # fraction] 0.3 E9/L Normal 0.0-0.5 [facility] Comment on above: Order Comment: Order Added by Discern Expert. Performed By: #### 1 5205582, 7977463, 6134638, 1050282 ####[address] [place] [address] Lymphocytes/100 WBC (Bld) 13.6 % Low 14.0-50.0 [facility] Comment on above: Order Comment: Order Added by Discern Expert. Performed By: #### 1 4572390, 9722478, 6850450, 5238216 ####[address] [address] Lymphocytes/Leukocyte s Auto (Bld) [Pure # fraction] 0.9 E9/L Low 1.0-4.0 [facility] Comment on above: Order Comment: Order Added by Discern Expert. Performed By: #### 1 [id number], 4681562, 8190726, 1353172 ####[address] [address] Monocytes/100 WBC (Bld) 11.9 % Normal 4.0-14.0 [facility] Comment on above: Order Comment: Order Added by Discern Expert. Performed By: #### 1 4121787, 0868256, 4223340, 4849697 ####[address] [address] Monocytes/Leukocytes Auto (Bld) [Pure # fraction] 0.8 E9/L Normal 0.2-1.0 [facility] Comment on above: Order Comment: Order Added by Discern Expert. Performed By: #### 1 0026353, 0363451, 9513589, 4928272 ####[address] [address] Neutrophils/100 WBC (Bld) 68.5 % Normal 36.0-75.0 [facility] Comment on above: Order Comment: Order Added by Discern Expert. Performed By: #### 1 6660139, 3359173, 6035325, 5873588 ####[address] [address] Neutrophils/Leukocyte s Auto (Bld) [Pure # fraction] 4.6 E9/L Normal 2.0-7.5 [facility] Comment on above: Order Comment: Order Added by Discern Expert. Performed By: #### 1 8924063, 9011683, 7890372, 3044079 ####[address] [address] CBC w/ Auto Diffon 3 Erythrocyte distribution width (RBC) [Ratio] 14.7 % High 10.9-14.2 [facility] Comment on above: Performed By: #### 1 7917637, 9219450, 3443520, 2909099 ####[address] [place] [address] Hematocrit (Bld) [Volume fraction] 40.3 % Normal 37.7-49.0 [facility] Comment on above: Performed By: #### 1 8190709, 8306600, 3258319, 3032080 ####[address] [address] Hemoglobin (Bld) [Mass/Vol] 13.7 g/dL Normal 13.5-17.5 [facility] Comment on above: Performed By: #### 1 2460361, 9258188, 6209446, 8823855 ####[address] [address] MCH (RBC) [Entitic mass] 33.9 pg Normal 27.0-34.0 [facility] Comment on above: Performed By: #### 1 6216338, 6431726, 1977363, 7342388 ####[address] [address] MCHC (RBC) [Mass/Vol] 34.0 g/dL Normal 31.4-36.0 [facility] Comment on above: Performed By: #### 1 5003857, 3728528, 5879212, 9981491 ####[address] [address] MCV (RBC) [Entitic vol] 99.8 fL Normal 80.0-100.0 [facility] Comment on above: Performed By: #### 1 2222436, 7141197, 5016133, 1339304 ####[address] [address] Platelet mean volume (Bld) [Entitic vol] 9.8 fL Normal 6.4-10.8 [facility] Comment on above: Performed By: #### 1 5830951, 2061816, 9125098, 9239639 ####[address] [place] [address] Platelets (Bld) [#/Vol] 161.0 E9/L Normal 150.0-500.0 [facility] Comment on above: Performed By: #### 1 6975153, 6721944, 6650871, 0596847 ####[facility] [address] [place] [address] RBC (Bld) [#/Vol] 4.0 E12/L Low 4.3-5.9 [facility] Comment on above: Performed By: #### 1 5068717, 5663457, 4599878, 1874939 ####[facility] [address] [place] [address] WBC corrected for nucl RBC Auto (Bld) [#/Vol] 6.7 E9/L Normal 4.0-11.0 [facility] Comment on above: Performed By: #### 1 2112310, 0103515, 0752324, 5487953 ####[facility] [address] [place] [address] CHEMISTRYOrdered By: SYSTEM SYSTEM on 04-13-2023 Albumin [...] mmol/L Normal 101 - 1 11 mmol/L [facility] CO2 [Moles/Vol] 28 mmol/L Normal 21 - 31 mmol/L [facility] Creatinine [Mass/Vol] 1.8 mg/dL High 0.5 - 1.3 mg/dL [facility] GFR/1.73 sq M.predicted among non-blacks MDRD (S/P/Bld) [Vol rate/Area] 37 mL/min/1.73 m2 Low >=59mL/min/1. 73 m2 [facility] Chem S Globulin (S) [Mass/Vol] 2.8 g/dL Normal 1.4 - 4.0 gm/dL [facility] Glucose [Mass/Vol] 111 mg/dL Normal 55 - 199 mg/dL [facility] Potassium [Moles/Vol] 4.1 mmol/L Normal 3.5 - 5.3 mmol/L [facility] Protein [Mass/Vol] 6.6 g/dL Normal 6.0 - 7.8 gm/dL [facility] Sodium [Moles/Vol] 141 mmol/L Normal 135 - 145 mmol/L [facility] Urea nitrogen [Mass/Vol] 24 mg/dL High 5 - 21 mg/dL [facility] Urea nitrogen/Creatinine [Mass ratio] 13 mg/mg Normal 10 - 20 [facility] CMPon 04-13-2023 Albumin [Mass/Vol] 3.8 g/dL Normal 3.3-5.0 [facility] Comment on above: Performed By: #### 1 [id number], 9694264, 1003419, 7828508 ####[facility] [address] [place] [address] Albumin/Globulin (S) [Mass conc ratio] 1.4 Normal 1.1-2.2 [facility] Comment on above: Performed By: #### 1 6576037, 1690038, 3180703, 1321559 ####[facility] [address] [place] [address] ALP [Catalytic activity/Vol] 61 Int._Unit/L Normal 21-98 [facility] Comment on above: Performed By: #### 1 1913103, 8922028, 4161381, 9111004 ####[facility] [address] [place] [address] ALT No additional P-5'-P [Catalytic activity/Vol] 16 Int._Unit/L Normal 6-46 [facility] Comment on above: Performed By: #### 1 4894616, 0266157, 6272240, 9634024 ####[facility] [address] [facility] [place] [address] Anion gap [Moles/Vol] 13 mmol/L Normal 6-16 [facility] Comment on above: Performed By: #### 1 2793543, 3601621, 3054007, 1271879 ####[facility] [address] [place] [address] AST [Catalytic activity/Vol] 18 Int._Unit/L Normal 5-43 [facility] Comment on above: Performed By: #### 1 0984475, 9227536, 1874611, 1302065 ####[facility] [address] [facility] [place] [address] Bilirubin [Mass/Vol] 0.5 mg/dL Normal 0.0-1.1 [facility] Comment on above: Performed By: #### 1 7278089, 8429887, 0826687, 0453288 ####[facility] [address] [place] [address] Calcium [Mass/Vol] 8.8 mg/dL Low 8.9-11.1 [facility] Comment on above: Performed By: #### 1 9868460, 2533843, 4299495, 8682022 ####[facility] [address] [place] [address] Chloride [Moles/Vol] 104 mmol/L Normal 101-111 [facility] Comment on above: Performed By: #### 1 5380562, 5445743, 0176186, 7164771 ####[facility] [address] [place] [address] CO2 [Moles/Vol] 28 mmol/L Normal 21-31 [facility] Comment on above: Performed By: #### 1 3891162, 1082088, 7650705, 5322957 ####[facility] [address] [place] [address] Creatinine [Mass/Vol] 1.8 mg/dL High 0.5-1.3 [facility] Comment on above: Performed By: #### 1 6559968, 3825721, 0164170, 2236419 ####[facility] [address] [place] [address] Globulin (S) [Mass/Vol] 2.8 g/dL Normal 1.4-4.0 [facility] Comment on above: Performed By: #### 1 1145925, 3230922, 9075213, 3235026 ####[facility] [address] [place] [address] Glucose [Mass/Vol] 111 mg/dL Normal 55-199 [facility] Comment on above: Result Comment: If t his glucose result represents a fasting glucose, interpretation should refer to the following reference range: 55-99 mg/dL Performed By: #### 1 8395478, 3915123, 2945488, 3322083 ####[facility] [address] [place] [address] Potassium [Moles/Vol] 4.1 mmol/L Normal 3.5-5.3 [facility] Comment on above: Performed By: #### 1 0317830, 2244350, 0805505, 7722202 ####[facility] [address] [place] [address] Protein [Mass/Vol] 6.6 g/dL Normal 6.0-7.8 [facility] Comment on above: Performed By: #### 1 2171449, 9530303, 4675817, 0637214 ####[facility] [address] [place] [address] Sodium [Moles/Vol] 141 mmol/L Normal 135-145 [facility] Comment on above: Performed By: #### 1 5747616, 5466165, 9468439, 9729282 ####[facility] [address] [place] [address] Urea nitrogen [Mass/Vol] 24 mg/dL High 5- [facility] Comment on above: Performed By: #### 1 0192853, 3014026, 4953993, 4858039 ####[facility] [address] [place] [address] Urea nitrogen/Creatinine [Mass ratio] 13 No Units Normal 10-20 [facility] Comment on above: Performed By: #### 1 7580429, 1921571, 4677533, 0075309 ####[facility] [address] [place] [address] Consent for Treatmenton 03-17 Consent for Treatment [id number] #1.00CD:127 Normal [facility] Gastroenterology Office/Clin ic Noteon 04-13-2023 Gastroenterology Office/Clinic [...] (2026). Follow-up With When Contact Information Nereyda Gomez CNP Within 1 month Additional Instructions: Patient [...] 4 mg= (more content not included)... Normal [facility] Comment on above: Result Comment: Elec tronically [...] [facility] HemeAutoSS Orders Onlyon 04-13-2023 Orders Only [id number] Nadir Heredia 1940 M Date Provider Department Center 04/13/2023 JanetteLU JOHNSON [facility] LISA Comprehensiv Family History Problem Relation Age of Onset Coronary artery disease Father Family Status - Relation Status Age at Father Normal [facility] Orders Only [id number] Nadir Heredia 1940 M Date Provider Department Center 04/13/2023 LU BYRD [facility] INT MED Comprehensiv Family History Problem Relation Age of Onset Coronary artery disease Father Family Status - Relation Status Age at Father Normal [facility] eGFRon 04-13-2023 GFR/1.73 sq M.predicted among non-blacks MDRD (S/P/Bld) [Vol rate/Area] 37 mL/min/1.73 m2 Low >=59 [facility] Comment on above: Order Comment: Order added by Discern Expert. Result Comment: Applications Processor rd kidney disease could be indicated at eGFR's of less than 60 mL/min/1.73m2. Kidney failure is indicated at less than 15 mL/min/1.73m2. Performed By: #### 1 [id number], 2402078, 7876790, 8163872 ####[facility] [address] [place] [address] 36on 04-08-2023 36 Patient [facility] Telephoneon 04-08-2023 Telephone [id number] Nadir Heredia 1940 [facility] Provider Department [place] 04/08/2023 RUTHIE OWEN [facility] NEPHRO Comprehensiv Family History Problem Relation Age of Onset Coronary artery disease Father Family Status - Relation Status Age at Father Normal [facility] Office Visiton 04-07-2023 Follow-up visit [id number] Nadir Heredia 1940 M Date Provider Department Center 04/07/2023 RUTHIE OWEN [facility] NEPHRO Comprehensiv Family History Problem Relation Age of Onset Coronary artery disease Father Family Status - Relation Status Age at Father Level of Service:46885 ID OFFICE/OUTPATIENT ESTABLISHED MOD MDM 30-39 MIN Reason for Visit and Comments: Follow-up [790244] Normal [facility] ALBUMINon 03-24-2023 Albumin [Mass/Vol] 3.3 g/dL Critically low 3.4-5.0 [facility] Comment on above: Performed By: #### ERICK Jacques, PHOS #### [facility] [address] [place] [address] Dr. David Magana GLYCOHEMOGLOBIN A1Con 2022 ADA RECOMMENDATION SEE BELOW Normal [facility] Comment on above: Result Comment: ADA RECOMMENDED LIMIT 4.0 - 6.0 ADA THERAPEUTIC TARGET < 7.0 ACTION SUGGESTED > 7.0 Performed By: #### A 1C #### [facility] [address] [place] [address] Dr. David Magana Glucose [Mass/Vol] 108 mg/dL Normal [facility] Comment on above: Performed By: #### A 1C #### [facility] [address] [place] [address] Dr. David Magana HbA1c (Bld) [Mass fraction] 5.4 % Normal 4.5-6.2 [facility] Comment on above: Performed By: #### A 1C #### [facility] [address] [place] [address] Dr. David Magana PHOSPHORUSon 03-24-2023 Phosphate [Mass/Vol] 3.6 mg/dL Normal 2.6-4.7 [facility] Comment on above: Performed By: #### M ERICK Faith, PHOS #### [facility] [address] [place] [address] Dr. David Magana PROF CHEM 8 (BAS METB)on Anion gap [Moles/Vol] 11.6 mmol/L Normal [facility] Comment on above: Performed By: #### M ERICK Faith, PHOS #### [facility] [address] [place] [address] Dr. Daivd Magana Calcium [Mass/Vol] 8.9 mg/dL Normal 8.5-10.1 [facility] Comment on above: Performed By: #### M G, BMP, PHOS #### [facility] [address] [address] [address] David Magana Chloride [Moles/Vol] 107 mmol/L Normal 98-107 [facility] Comment on above: Performed By: #### M G, BMP, PHOS #### [facility] [address] [address] [address] David Magana CO2 [Moles/Vol] 30.8 mmol/L Normal 21.0-32.0 [facility] Comment on above: Performed By: #### M G, BMP, PHOS #### [facility] [address] [address] [address] David Magana Creatinine [Mass/Vol] 1.67 mg/dL Critically high 0.70-1.30 [facility] Comment on above: Performed By: #### M G, BMP, PHOS #### [facility] [address] [address] [address] David Magana EGFR-AF BARBADIAN 48 mL/min/1.73m2 Critically low >=60 [facility] Comment on above: Performed By: #### M G, BMP, PHOS #### [facility] [address] [address] [address] David Magana EGFR-NON AF [place] 39 mL/min/1.73m2 Critically low >=60 [facility] Comment on above: Performed By: #### M G, BMP, PHOS #### [facility] [address] [address] [address] David Magana Glucose [Mass/Vol] 128 mg/dL Critically high 74-106 [facility] Comment on above: Performed By: #### M G, BMP, PHOS #### [facility] [address] [address] [address] David Magana Potassium [Moles/Vol] 4.4 mmol/L Normal 3.5-5.1 [facility] Comment on above: Performed By: #### M G, BMP, PHOS #### [facility] [address] [address] [address] David Magana Sodium [Moles/Vol] 145 mmol/L Normal 136-145 [facility] Comment on above: Performed By: #### M ERICK Faith, PHOS #### [facility] [address] [place] [address] Dr. Davdi Magana Urea nitrogen [Mass/Vol] 25.0 mg/dL Critically high 7.0-18.0 [facility] Comment on above: Performed By: #### M ERICK Faith, PHOS #### [facility] [address] [place] [address] Dr. David Magana Urea nitrogen/Creatinine [Mass ratio] 15.0 mg/mg Normal [facility] Comment on above: Performed By: #### M ERICK Faith PHOS #### [facility] [address] [place] [address] Dr. David Magana VITAMIN D 25 OHon 03-24-2023 VIT D 25-OH 11.6 ng/mL Normal [facility] Comment on above: Performed By: #### C BC #### [facility] [address] [place] [address] Dr. David Magana VIT D RANGES SEE BELOW Normal [facility] Comment on above: Result Comment: <20 ng/mL Vit D deficient 20 - <30 ng/mL Vit D insufficient 30 - 100 ng/mL Vit D sufficient >100 ng/mL Potential Toxicity Performed By: #### C BC #### [facility] [address] [place] [address] Dr. David Magana 36on 03-08-2023 36 Orders have been confirmed. Normal [facility] Physician Referralon 023 Physician Referral [id number] #[id number]:127 [facility] 36on 03-05-2023 36 Patient's , Shanna, would like to confirm the blood work orders needed for patient's next visit with Dr. Linda. 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 She can be reached at [phone] or [phone]. Normal [facility] Telephoneon 03-05-2023 Telephone [id number] Nadir Heredia 1940 M Date Provider Department Center 03/05/2023 RUTHIE OWEN [facility] NEPHRO Comprehensiv Family History Problem Relation Age of Onset Coronary artery disease Father Family Status - Relation Status Age at Father Reason for Visit and Comments: Clarification On Lab Orders [Other] Normal [facility] CBC AUTO DIFFon 02-27-2023 BASO # 0.0 103/ul Normal 0.0-0.1 [facility] Comment on above: Performed By: #### M G, BMP, PHOS #### [facility] [address] [place] [address] Dr. David Magana Basophils/100 WBC (Bld) 0.5 % Normal 0.2-2.0 [facility] Comment on above: Performed By: #### M G, BMP, PHOS #### [facility] [address] [place] [address] Dr. David Magana EO # 0.7 103/ul Normal 0.0-0.7 [facility] Comment on above: Performed By: #### M G, BMP, PHOS #### [facility] [address] [place] [address] Dr. David Magana Eosinophils/100 WBC (Bld) 9.3 % Critically high 0.9-7.0 [facility] Comment on above: Performed By: #### M G, BMP, PHOS #### [facility] [address] [place] [address] Dr. David Magana Erythrocyte distribution width (RBC) [Ratio] 14.6 % Normal 11.0-15.0 [facility] Comment on above: Performed By: #### M G, BMP, PHOS #### [facility] [address] [place] [address] Dr. David Magana Hematocrit (Bld) [Volume fraction] 41.5 % Critically low 42.0-54.0 [facility] Comment on above: Performed By: #### M G, BMP, PHOS #### [facility] [address] [place] [address] Dr. David Magana Hemoglobin (Bld) [Mass/Vol] 13.9 g/dL Critically low 14.0-18.0 [facility] Comment on above: Performed By: #### ERICK Jacques, PHOS #### [facility] [address] [place] [address] Dr. David Magana IG # 0.02 10e3/ul Normal 0.00-0.03 [facility] Comment on above: Performed By: #### ERICK Jacques, PHOS #### [facility] [address] [place] [address] Dr. David Magana IG % 0.3 % Normal 0.0-0.5 [facility] Comment on above: Performed By: #### ERICK Jacques, PHOS #### [facility] [address] [place] [address] Dr. David Magana LYMPH # 1.0 103/ul Critically low 1.2-3.8 [facility] Comment on above: Performed By: #### ERICK Jacques, PHOS #### [facility] [address] [place] [address] Dr. David Magana Lymphocytes/100 WBC (Bld) 13.0 % Critically low 20.5-60.0 [facility] Comment on above: Performed By: #### ERICK Jacques, PHOS #### [facility] [address] [place] [address] Dr. David Magana MANUAL DIFF REQ NO Normal [facility] Comment on above: Performed By: #### ERICK Jacques, PHOS #### [facility] [address] [place] [address] Dr. David Magana MCH (RBC) [Entitic mass] 33.5 pg Normal 25.9-34.0 [facility] Comment on above: Performed By: #### ERICK Jacques, PHOS #### [facility] [address] [place] [address] Dr. David Magana MCHC (RBC) [Mass/Vol] 33.5 g/dL Normal 29.9-35.2 [facility] Comment on above: Performed By: #### M G, BMP, PHOS #### [facility] [address] [place] [address] Dr. David Magana MCV (RBC) [Entitic vol] 100.0 fL Critically high 80.0-94.0 [facility] Comment on above: Performed By: #### M G, BMP, PHOS #### [facility] [address] [place] [address] Dr. David Magana MONO # 0.8 103/ul Normal 0.3-0.8 [facility] Comment on above: Performed By: #### M G, BMP, PHOS #### [facility] [address] [place] [address] Dr. David Magana Monocytes/100 WBC (Bld) 10.1 % Normal 1.7-12.0 [facility] Comment on above: Performed By: #### M Marcell BMP, PHOS #### [facility] [address] [place] [address] Dr. David Magana NEUT # 5.0 103/ul Normal 1.4-6.5 [facility] Comment on above: Performed By: #### M Marcell BMP, PHOS #### [facility] [address] [place] [address] Dr. David Magana Neutrophils/100 WBC (Bld) 66.8 % Normal 43.0-75.0 [facility] Comment on above: Performed By: #### M Marcell BMP, PHOS #### [facility] [address] [place] [address] Dr. David Magana Platelet mean volume (Bld) [Entitic vol] 11.2 fL Normal 9.5-13.5 [facility] Comment on above: Performed By: #### M G, BMP, PHOS #### [facility] [address] [place] [address] Dr. David Magana PLT 187 103/ul Normal 150-450 [facility] Comment on above: Performed By: #### M G, BMP, PHOS #### [facility] [address] [place] [address] Dr. David Magana RBC 4.15 106/ul Critically low 4.70-6.10 [facility] Comment on above: Performed By: #### M ERICK Faith PHOS #### [facility] [address] [place] [address] Dr. David Magana WBC 7.5 103/ul Normal 4.0-11.0 [facility] Comment on above: Performed By: #### ERICK Jacques PHOS #### [facility] [address] [place] [address] Dr. David Magana PROF 14(COMP METB)on 023 Albumin [Mass/Vol] 3.5 g/dL Normal 3.4-5.0 [facility] Comment on above: Performed By: #### A 1C #### [facility] [address] [place] [address] Dr. David Magana Albumin/Globulin [Mass ratio] 1.1 {ratio} Normal [facility] Comment on above: Performed By: #### A 1C #### [facility] [address] [place] [address] Dr. David Magana ALP [Catalytic activity/Vol] 76 U/L Normal 46-116 [facility] Comment on above: Performed By: #### A 1C #### [facility] [address] [place] [address] Dr. David Magana ALT [Catalytic activity/Vol] 23 U/L Normal 16-63 [facility] Comment on above: Performed By: #### A 1C #### [facility] [address] [place] [address] Dr. David Magana Anion gap [Moles/Vol] 13.1 mmol/L Normal [facility] Comment on above: Performed By: #### A 1C #### [facility] [address] [place] [address] Dr. David Magana AST [Catalytic activity/Vol] 17 U/L Normal 15-37 [facility] Comment on above: Performed By: #### A 1C #### [facility] [address] [place] [address] Dr. David Magana Bilirubin [Mass/Vol] 0.7 mg/dL Normal 0.2-1.0 [facility] Comment on above: Performed By: #### A 1C #### [facility] [address] [address] [address] David Magana Calcium [Mass/Vol] 9.0 mg/dL Normal 8.5-10.1 [facility] Comment on above: Performed By: #### A 1C #### [facility] [address] [address] [address] David Magana Chloride [Moles/Vol] 105 mmol/L Normal 98-107 [facility] Comment on above: Performed By: #### A 1C #### [facility] [address] [place] [address] Dr. David Magana CO2 [Moles/Vol] 29.0 mmol/L Normal 21.0-32.0 [facility] Comment on above: Performed By: #### A 1C #### [facility] [address] [address] [address] David Magana Creatinine [Mass/Vol] 1.77 mg/dL Critically high 0.70-1.30 [facility] Comment on above: Performed By: #### A 1C #### [facility] [address] [place] [address] Dr. David Magana EGFR-AF BARBADIAN 45 mL/min/1.73m2 Critically low >=60 [facility] Comment on above: Performed By: #### A 1C #### [facility] [address] [address] [address] David Magana EGFR-NON AF BAR[place]IAN 37 mL/min/1.73m2 Critically low >=60 [facility] Comment on above: Performed By: #### A 1C #### [facility] [address] [place] [address] Dr. David Magana Globulin (S) [Mass/Vol] 3.3 g/dL Normal [facility] Comment on above: Performed By: #### A 1C #### [facility] [address] [address] [address] David Magana Glucose [Mass/Vol] 135 mg/dL Critically high 74-106 [facility] Comment on above: Performed By: #### A 1C #### [facility] [address] [address] [address] David Magana Potassium [Moles/Vol] 4.1 mmol/L Normal 3.5-5.1 [facility] Comment on above: Performed By: #### A 1C #### [facility] [address] [place] [address] Dr. David Magana Protein [Mass/Vol] 6.8 g/dL Normal 6.4-8.2 [facility] Comment on above: Performed By: #### A 1C #### [facility] [address] [place] [address] Dr. David Magana Sodium [Moles/Vol] 143 mmol/L Normal 136-145 [facility] Comment on above: Performed By: #### A 1C #### [facility] [address] [place] [address] Dr. David Magana Urea nitrogen [Mass/Vol] 31.0 mg/dL Critically high 7.0-18.0 [facility] Comment on above: Performed By: #### A 1C #### [facility] [address] [place] [address] Dr. David Magana Urea nitrogen/Creatinine [Mass ratio] 17.5 mg/mg Normal [facility] Comment on above: Performed By: #### A 1C #### [facility] [address] [place] [address] Dr. David Magana PROTIMEon 02-27-2023 INR Coag (PPP) [Relative time] 0.99 {INR} Normal [facility] Comment on above: Performed By: #### A 1C #### [facility] [address] [place] [address] Dr. David Magana INR GUIDELINES SEE BELOW Normal [facility] Comment on above: Result Comment: IDANIA RED INR: 2.0 - 3.0 CONDITIONS NOT LISTED BELOW 2.5 - 3.5 FOR PROSTHETIC HEART VALVE REPLACEMENT 2.5 - 3.5 RECURRENT THROMBOSIS Performed By: #### A 1C #### [facility] [address] [place] [address] Dr. David Magana PT Coag (PPP) [Time] 10.5 s Normal 9.0-11.6 [facility] Comment on above: Performed By: #### A 1C #### [facility] [address] [place] [address] Dr. David Magana PTTon 02-27-2023 aPTT Coag (Bld) [Time] 33.0 s Normal 22.3-36.2 [facility] Comment on above: Performed By: #### P OCGLUC #### [facility] [address] [place] [address] Dr. David Magana ALBUMINon 12-28-2022 Albumin [Mass/Vol] 3.6 g/dL Normal 3.4-5.0 [facility] Comment on above: Performed By: #### C BC #### [facility] [address] [place] [address] Dr. David Magana GLYCOHEMOGLOBIN A1Con 2022 ADA RECOMMENDATION SEE BELOW Normal [facility] Comment on above: Result Comment: ADA RECOMMENDED LIMIT 4.0 - 6.0 ADA THERAPEUTIC TARGET < 7.0 ACTION SUGGESTED > 7.0 Performed By: #### P OCGLUC #### [facility] [address] [place] [address] Dr. David Magana Glucose [Mass/Vol] 140 mg/dL Normal [facility] Comment on above: Performed By: #### P OCGLUC #### [facility] [address] [place] [address] Dr. David Magana HbA1c (Bld) [Mass fraction] 6.5 % Critically high 4.5-6.2 [facility] Comment on above: Performed By: #### P OCGLUC #### [facility] [address] [place] [address] Dr. David Magana MAGNESIUMon 12-28-2022 Magnesium [Mass/Vol] 2.3 mg/dL Normal 1.8-2.4 [facility] Comment on above: Performed By: #### P OCGLUC #### [facility] [address] [address] [address] David Magana PROF CHEM 8 (BAS METB)on Anion gap [Moles/Vol] 13.2 mmol/L Normal [facility] Comment on above: Performed By: #### P OCGLUC #### [facility] [address] [address] [address] David Magana Calcium [Mass/Vol] 9.0 mg/dL Normal 8.5-10.1 [facility] Comment on above: Performed By: #### P OCGLUC #### [facility] [address] [address] [address] David Magana Chloride [Moles/Vol] 105 mmol/L Normal 98-107 [facility] Comment on above: Performed By: #### P OCGLUC #### [facility] [address] [address] [address] David Magana CO2 [Moles/Vol] 28.9 mmol/L Normal 21.0-32.0 [facility] Comment on above: Performed By: #### P OCGLUC #### [facility] [address] [address] [address] David Magana Creatinine [Mass/Vol] 1.66 mg/dL Critically high 0.70-1.30 [facility] Comment on above: Performed By: #### P OCGLUC #### [facility] [address] [address] [address] David Magana EGFR-AF BAR[place]IAN 48 mL/min/1.73m2 Critically low >=60 [facility] Comment on above: Performed By: #### P OCGLUC #### [facility] [address] [address] [address] David Magana EGFR-NON AF [place] 40 mL/min/1.73m2 Critically low >=60 [facility] Comment on above: Performed By: #### P OCGLUC #### [facility] [address] [address] [address] David Magana Glucose [Mass/Vol] 123 mg/dL Critically high 74-106 [facility] Comment on above: Performed By: #### P OCGLUC #### [facility] [address] [address] [address] David Magana Potassium [Moles/Vol] 4.1 mmol/L Normal 3.5-5.1 [facility] Comment on above: Performed By: #### P OCGLUC #### [facility] [address] [address] [address] David Magana Sodium [Moles/Vol] 143 mmol/L Normal 136-145 [facility] Comment on above: Performed By: #### P OCGLUC #### [facility] [address] [address] [address] David Magana Urea nitrogen [Mass/Vol] 29.0 mg/dL Critically high 7.0-18.0 [facility] Comment on above: Performed By: #### P OCGLUC #### [facility] [address] [address] [address] David Magana Urea nitrogen/Creatinine [Mass ratio] 17.5 mg/mg Normal [facility] Comment on above: Performed By: #### P OCGLUC #### [facility] [address] [address] [address] David Magana URINE T PROTEIN CREAT RATIOo n 12-28-2022 UR TOTAL PROTEIN <6.0 Normal <=12.0 [facility] Comment on above: Performed By: #### M G, BMP, PHOS #### [facility] [address] [address] [address] David Magana URINE CREAT 41.21 mg/dL Normal 20.00-300.00 [facility] Comment on above: Performed By: #### M G, BMP, PHOS #### [facility] [address] [address] [address] David Magana ALBUMINon 11-16-2022 Albumin [Mass/Vol] 3.3 g/dL Critically low 3.4-5.0 Th e [facility] Comment on above: Performed By: #### C BC #### [facility] [address] [address] [address] David Magana CREATININE URINEon 01-02-202 3 URINE CREAT 19.69 mg/dL Critically low 20.00-300.00 [facility] Comment on above: Performed By: #### M ERICK Faith PHOS #### [facility] [address] [place] [address] Dr. David Magana HEMOGLOBINon 11-16-2022 Hemoglobin (Bld) [Mass/Vol] 14.9 g/dL Normal 14.0-18.0 [facility] Comment on above: Performed By: #### M ERICK Faith PHOS #### [facility] [address] [place] [address] Dr. David Magana MAGNESIUMon 11-16-2022 Magnesium [Mass/Vol] 2.2 mg/dL Normal 1.8-2.4 [facility] Comment on above: Performed By: #### C BC #### [facility] [address] [place] [address] Dr. David Magana PHOSPHORUSon 11-16-2022 Phosphate [Mass/Vol] 3.9 mg/dL Normal 2.6-4.7 [facility] Comment on above: Performed By: #### C BC #### [facility] [address] [place] [address] Dr. David Magana PROF CHEM 8 (BAS METB)on Anion gap [Moles/Vol] 11.9 mmol/L Normal [facility] Comment on above: Performed By: #### C BC #### [facility] [address] [place] [address] Dr. David Magana Calcium [Mass/Vol] 8.8 mg/dL Normal 8.5-10.1 [facility] Comment on above: Performed By: #### C BC #### [facility] [address] [place] [address] Dr. David Magana Chloride [Moles/Vol] 104 mmol/L Normal 98-107 [facility] Comment on above: Performed By: #### C BC #### [facility] [address] [place] [address] Dr. David Magana CO2 [Moles/Vol] 27.4 mmol/L Normal 21.0-32.0 [facility] Comment on above: Performed By: #### C BC #### [facility] [address] [address] [address] David Magana Creatinine [Mass/Vol] 1.68 mg/dL Critically high 0.70-1.30 [facility] Comment on above: Performed By: #### C BC #### [facility] [address] [address] [address] David Magana EGFR-AF [place] 48 mL/min/1.73m2 Critically low >=60 [facility] Comment on above: Performed By: #### C BC #### [facility] [address] [address] [address] David Magana EGFR-NON AF [place] 39 mL/min/1.73m2 Critically low >=60 [facility] Comment on above: Performed By: #### C BC #### [facility] [address] [address] [address] David Magana Glucose [Mass/Vol] 212 mg/dL Critically high 74-106 T [facility] Comment on above: Performed By: #### C BC #### [facility] [address] [address] [address] David Magana Potassium [Moles/Vol] 4.3 mmol/L Normal 3.5-5.1 [facility] Comment on above: Performed By: #### C BC #### [facility] [address] [address] [address] David Magana Sodium [Moles/Vol] 139 mmol/L Normal 136-145 [facility] Comment on above: Performed By: #### C BC #### [facility] [address] [address] [address] David Magana Urea nitrogen [Mass/Vol] 25.0 mg/dL Critically high 7.0-18.0 [facility] Comment on above: Performed By: #### C BC #### [facility] [address] [address] [address] David Magana Urea nitrogen/Creatinine [Mass ratio] 14.9 mg/mg Normal [facility] Comment on above: Performed By: #### C BC #### [facility] [address] [place] [address] Dr. David Magana PROTEIN RAND URINEon 023 UR PROT <5.0 Normal <=11.9 [facility] Comment on above: Performed By: #### M ERICK Faith PHOS #### [facility] [address] [place] [address] Dr. David Magana US CHANI DOP LEG [...] CLOVER PEREZ Date: 2022-11-02 16:21 Normal [facility] BNPon 07-22-2022 Natriuretic peptide B (Bld) [Mass/Vol] 2143.0 pg/mL Critically high <=1,800.0 [facility] Comment on above: Performed By: #### M ERICK Faith PHOS #### [facility] [address] [place] [address] Dr. David Magana CBC AUTO DIFFon 07-22-2022 BASO # 0.0 103/ul Normal 0.0-0.1 [facility] Comment on above: Performed By: #### A 1C #### [facility] [address] [place] [address] Dr. David Magana Basophils/100 WBC (Bld) 0.3 % Normal 0.2-2.0 [facility] Comment on above: Performed By: #### A 1C #### [facility] [address] [place] [address] Dr. David Magana EO # 0.3 103/ul Normal 0.0-0.7 [facility] Comment on above: Performed By: #### A 1C #### [facility] [address] [address] [address] David Magana Eosinophils/100 WBC (Bld) 2.4 % Normal 0.9-7.0 [facility] Comment on above: Performed By: #### A 1C #### [facility] [address] [place] [address] Dr. David Magana Erythrocyte distribution width (RBC) [Ratio] 13.4 % Normal 11.0-15.0 [facility] Comment on above: Performed By: #### A 1C #### [facility] [address] [place] [address] Dr. David Magana Hematocrit (Bld) [Volume fraction] 42.7 % Normal 42.0-54.0 [facility] Comment on above: Performed By: #### A 1C #### [facility] [address] [place] [address] Dr. David Magana Hemoglobin (Bld) [Mass/Vol] 14.2 g/dL Normal 14.0-18.0 [facility] Comment on above: Performed By: #### A 1C #### [facility] [address] [place] [address] Dr. David Magaan IG # 0.18 10e3/ul Critically high 0.00-0.03 [facility] Comment on above: Performed By: #### A 1C #### [facility] [address] [place] [address] Dr. David Magana IG % 1.6 % Critically high 0.0-0.5 [facility] Comment on above: Performed By: #### A 1C #### [facility] [address] [place] [address] Dr. David Magana LYMPH # 0.9 103/ul Critically low 1.2-3.8 [facility] Comment on above: Performed By: #### A 1C #### [facility] [address] [place] [address] Dr. David Magana Lymphocytes/100 WBC (Bld) 8.1 % Critically low 20.5-60.0 [facility] Comment on above: Performed By: #### A 1C #### [facility] [address] [place] [address] Dr. David Magana MANUAL DIFF REQ NO Normal [facility] Comment on above: Performed By: #### A 1C #### [facility] [address] [place] [address] Dr. David Magana MCH (RBC) [Entitic mass] 33.3 pg Normal 25.9-34.0 [facility] Comment on above: Performed By: #### A 1C #### [facility] [address] [place] [address] Dr. David Magana MCHC (RBC) [Mass/Vol] 33.3 g/dL Normal 29.9-35.2 [facility] Comment on above: Performed By: #### A 1C #### [facility] [address] [place] [address] Dr. David Magana MCV (RBC) [Entitic vol] 100.2 fL Critically high 80.0-94.0 [facility] Comment on above: Performed By: #### A 1C #### [facility] [address] [place] [address] Dr. David Magana MONO # 1.2 103/ul Critically high 0.3-0.8 [facility] Comment on above: Performed By: #### A 1C #### [facility] [address] [place] [address] Dr. David Magana Monocytes/100 WBC (Bld) 10.5 % Normal 1.7-12.0 [facility] Comment on above: Performed By: #### A 1C #### [facility] [address] [place] [address] Dr. David Magana NEUT # 8.9 103/ul Critically high 1.4-6.5 [facility] Comment on above: Performed By: #### A 1C #### [facility] [address] [place] [address] Dr. David Magana Neutrophils/100 WBC (Bld) 77.1 % Critically high 43.0-75.0 [facility] Comment on above: Performed By: #### A 1C #### [facility] [address] [address] [address] David Magana Platelet mean volume (Bld) [Entitic vol] 11.3 fL Normal 9.5-13.5 [facility] Comment on above: Performed By: #### A 1C #### [facility] [address] [place] [address] Dr. David Magana PLT 175 103/ul Normal 150-450 [facility] Comment on above: Performed By: #### A 1C #### [facility] [address] [place] [address] Dr. David Magana RBC 4.26 106/ul Critically low 4.70-6.10 [facility] Comment on above: Performed By: #### A 1C #### [facility] [address] [place] [address] Dr. David Magana WBC 11.5 103/ul Critically high 4.0-11.0 [facility] Comment on above: Performed By: #### A 1C #### [facility] [address] [place] [address] Dr. David Magana PROF 14(COMP METB)on 022 Albumin [Mass/Vol] 2.6 g/dL Critically low 3.4-5.0 [facility] Comment on above: Performed By: #### ERICK Jacques, PHOS #### [facility] [address] [place] [address] Dr. David Magana Albumin/Globulin [Mass ratio] 0.9 {ratio} Normal [facility] Comment on above: Performed By: #### M ERICK Faith, PHOS #### [facility] [address] [place] [address] Dr. David Magana ALP [Catalytic activity/Vol] 49 U/L Normal 46-116 [facility] Comment on above: Performed By: #### M ERCIK Faith, PHOS #### [facility] [address] [place] [address] Dr. David Magana ALT [Catalytic activity/Vol] 25 U/L Normal 16-63 [facility] Comment on above: Performed By: #### M ERICK Faith, PHOS #### [facility] [address] [address] [address] David Magana Anion gap [Moles/Vol] 12.8 mmol/L Normal [facility] Comment on above: Performed By: #### M G, BMP, PHOS #### [facility] [address] [address] [address] David Magana AST [Catalytic activity/Vol] 9 U/L Critically low 15-37 [facility] Comment on above: Performed By: #### M G, BMP, PHOS #### [facility] [address] [address] [address] David Magana Bilirubin [Mass/Vol] 0.5 mg/dL Normal 0.2-1.0 [facility] Comment on above: Performed By: #### M G, BMP, PHOS #### [facility] [address] [place] [address] Dr. David Magana Calcium [Mass/Vol] 8.3 mg/dL Critically low 8.5-10.1 [facility] Comment on above: Performed By: #### M G, BMP, PHOS #### [facility] [address] [address] [address] David Magana Chloride [Moles/Vol] 105 mmol/L Normal 98-107 [facility] Comment on above: Performed By: #### M G, BMP, PHOS #### [facility] [address] [address] [address] David Magana CO2 [Moles/Vol] 24.2 mmol/L Normal 21.0-32.0 [facility] Comment on above: Performed By: #### M G, BMP, PHOS #### [facility] [address] [place] [address] Dr. David Magana Creatinine [Mass/Vol] 1.28 mg/dL Normal 0.70-1.30 [facility] Comment on above: Performed By: #### M G, BMP, PHOS #### [facility] [address] [address] [address] David Magana EGFR-AF BAR[place]IAN >60 Normal >=60 [facility] Comment on above: Performed By: #### M ERICK Faith, PHOS #### [facility] [address] [place] [address] Dr. David Magana EGFR-NON AF [place]IAN 54 mL/min/1.73m2 Critically low >=60 [facility] Comment on above: Performed By: #### M ERICK Faith, PHOS #### [facility] [address] [place] [address] Dr. David Magana Globulin (S) [Mass/Vol] 2.9 g/dL Normal [facility] Comment on above: Performed By: #### M ERICK Faith, PHOS #### [facility] [address] [place] [address] Dr. David Magana Glucose [Mass/Vol] 205 mg/dL Critically high 74-106 T [facility] Comment on above: Performed By: #### ERICK Jacques, PHOS #### [facility] [address] [place] [address] Dr. David Magana Potassium [Moles/Vol] 4.0 mmol/L Normal 3.5-5.1 [facility] Comment on above: Performed By: #### ERICK Jacques, PHOS #### [facility] [address] [place] [address] Dr. David Magana Protein [Mass/Vol] 5.5 g/dL Critically low 6.4-8.2 [facility] Comment on above: Performed By: #### ERICK Jacques, PHOS #### [facility] [address] [place] [address] Dr. David Magana Sodium [Moles/Vol] 138 mmol/L Normal 136-145 [facility] Comment on above: Performed By: #### M ERICK Faith, PHOS #### [facility] [address] [place] [address] Dr. David Magana Urea nitrogen [Mass/Vol] 36.0 mg/dL Critically high 7.0-18.0 [facility] Comment on above: Performed By: #### ERICK Jacques, PHOS #### [facility] [address] [place] [address] Dr. David Magana Urea nitrogen/Creatinine [Mass ratio] 28.1 mg/mg Normal [facility] Comment on above: Performed By: #### M ERICK Faith PHOS #### [facility] [address] [place] [address] Dr. David Magana BNPon 07-21-2022 Natriuretic peptide B (Bld) [Mass/Vol] 3485.0 pg/mL Critically high <=1,800.0 [facility] Comment on above: Result Comment: repe ated Performed By: #### A 1C #### [facility] [address] [place] [address] Dr. David Magana CBC AUTO DIFFon 07-21-2022 BASO # 0.0 103/ul Normal 0.0-0.1 [facility] Comment on above: Performed By: #### C BC #### [facility] [address] [place] [address] Dr. David Magana Basophils/100 WBC (Bld) 0.3 % Normal 0.2-2.0 [facility] Comment on above: Performed By: #### C BC #### [facility] [address] [place] [address] Dr. David Magana EO # 0.2 103/ul Normal 0.0-0.7 [facility] Comment on above: Performed By: #### C BC #### [facility] [address] [place] [address] Dr. David Magana Eosinophils/100 WBC (Bld) 1.9 % Normal 0.9-7.0 [facility] Comment on above: Performed By: #### C BC #### [facility] [address] [place] [address] Dr. David Magana Erythrocyte distribution width (RBC) [Ratio] 13.4 % Normal 11.0-15.0 [facility] Comment on above: Performed By: #### C BC #### [facility] [address] [place] [address] Dr. David Magana Hematocrit (Bld) [Volume fraction] 42.5 % Normal 42.0-54.0 [facility] Comment on above: Performed By: #### C BC #### [facility] [address] [place] [address] Dr. David Magana Hemoglobin (Bld) [Mass/Vol] 14.2 g/dL Normal 14.0-18.0 [facility] Comment on above: Performed By: #### C BC #### [facility] [address] [place] [address] Dr. David Magana IG # 0.22 10e3/ul Critically high 0.00-0.03 [facility] Comment on above: Performed By: #### C BC #### [facility] [address] [place] [address] Dr. David Magana IG % 2.1 % Critically high 0.0-0.5 [facility] Comment on above: Performed By: #### C BC #### [facility] [address] [place] [address] Dr. David Magana LYMPH # 0.8 103/ul Critically low 1.2-3.8 [facility] Comment on above: Performed By: #### C BC #### [facility] [address] [place] [address] Dr. David Magana Lymphocytes/100 WBC (Bld) 7.7 % Critically low 20.5-60.0 [facility] Comment on above: Performed By: #### C BC #### [facility] [address] [place] [address] Dr. David Magana MANUAL DIFF REQ NO Normal [facility] Comment on above: Performed By: #### C BC #### [facility] [address] [place] [address] Dr. David Magana MCH (RBC) [Entitic mass] 33.0 pg Normal 25.9-34.0 [facility] Comment on above: Performed By: #### C BC #### [facility] [address] [place] [address] Dr. David Magana MCHC (RBC) [Mass/Vol] 33.4 g/dL Normal 29.9-35.2 [facility] Comment on above: Performed By: #### C BC #### [facility] [address] [address] [address] David Magana MCV (RBC) [Entitic vol] 98.8 fL Critically high 80.0-94.0 [facility] Comment on above: Performed By: #### C BC #### [facility] [address] [address] [address] David Magana MONO # 1.0 103/ul Critically high 0.3-0.8 [facility] Comment on above: Performed By: #### C BC #### [facility] [address] [address] [address] David Magana Monocytes/100 WBC (Bld) 9.7 % Normal 1.7-12.0 [facility] Comment on above: Performed By: #### C BC #### [facility] [address] [place] [address] Dr. David Magana NEUT # 8.1 103/ul Critically high 1.4-6.5 [facility] Comment on above: Performed By: #### C BC #### [facility] [address] [place] [address] Dr. David Magana Neutrophils/100 WBC (Bld) 78.3 % Critically high 43.0-75.0 [facility] Comment on above: Performed By: #### C BC #### [facility] [address] [address] [address] David Magana Platelet mean volume (Bld) [Entitic vol] 10.7 fL Normal 9.5-13.5 [facility] Comment on above: Performed By: #### C BC #### [facility] [address] [place] [address] Dr. David Magana PLT 177 103/ul Normal 150-450 [facility] Comment on above: Performed By: #### C BC #### [facility] [address] [place] [address] Dr. David Magana RBC 4.30 106/ul Critically low 4.70-6.10 [facility] Comment on above: Performed By: #### C BC #### [facility] [address] [place] [address] Dr. David Magana WBC 10.4 103/ul Normal 4.0-11.0 [facility] Comment on above: Performed By: #### C BC #### [facility] [address] [place] [address] Dr. David Magana PROF 14(COMP METB)on 022 Albumin [Mass/Vol] 2.6 g/dL Critically low 3.4-5.0 [facility] Comment on above: Performed By: #### A 1C #### [facility] [address] [place] [address] Dr. David Magana Albumin/Globulin [Mass ratio] 1.0 {ratio} Normal [facility] Comment on above: Performed By: #### A 1C #### [facility] [address] [place] [address] Dr. David Magana ALP [Catalytic activity/Vol] 50 U/L Normal 46-116 [facility] Comment on above: Performed By: #### A 1C #### [facility] [address] [place] [address] Dr. David Magana ALT [Catalytic activity/Vol] 28 U/L Normal 16-63 [facility] Comment on above: Performed By: #### A 1C #### [facility] [address] [place] [address] Dr. David Magana Anion gap [Moles/Vol] 11.4 mmol/L Normal [facility] Comment on above: Performed By: #### A 1C #### [facility] [address] [place] [address] Dr. David Magana AST [Catalytic activity/Vol] 13 U/L Critically low 15-37 [facility] Comment on above: Performed By: #### A 1C #### [facility] [address] [place] [address] Dr. David Magana Bilirubin [Mass/Vol] 0.4 mg/dL Normal 0.2-1.0 [facility] Comment on above: Performed By: #### A 1C #### [facility] [address] [address] [address] David Magana Calcium [Mass/Vol] 8.4 mg/dL Critically low 8.5-10.1 [facility] Comment on above: Performed By: #### A 1C #### [facility] [address] [address] [address] David Magana Chloride [Moles/Vol] 107 mmol/L Normal 98-107 [facility] Comment on above: Performed By: #### A 1C #### [facility] [address] [address] [address] David Magana CO2 [Moles/Vol] 24.6 mmol/L Normal 21.0-32.0 [facility] Comment on above: Performed By: #### A 1C #### [facility] [address] [place] [address] Dr. David Magana Creatinine [Mass/Vol] 1.26 mg/dL Normal 0.70-1.30 [facility] Comment on above: Performed By: #### A 1C #### [facility] [address] [place] [address] Dr. David Magana EGFR-AF BARBADIAN >60 Normal >=60 [facility] Comment on above: Performed By: #### A 1C #### [facility] [address] [place] [address] Dr. David Magana EGFR-NON AF BARBADIAN 55 mL/min/1.73m2 Critically low >=60 [facility] Comment on above: Performed By: #### A 1C #### [facility] [address] [place] [address] Dr. David Magana Globulin (S) [Mass/Vol] 2.7 g/dL Normal [facility] Comment on above: Performed By: #### A 1C #### [facility] [address] [place] [address] Dr. David Magana Glucose [Mass/Vol] 203 mg/dL Critically high 74-106 [facility] Comment on above: Performed By: #### A 1C #### [facility] [address] [address] [address] David Magana Potassium [Moles/Vol] 4.0 mmol/L Normal 3.5-5.1 [facility] Comment on above: Performed By: #### A 1C #### [facility] [address] [place] [address] Dr. David Magana Protein [Mass/Vol] 5.3 g/dL Critically low 6.4-8.2 [facility] Comment on above: Performed By: #### A 1C #### [facility] [address] [place] [address] Dr. David Magana Sodium [Moles/Vol] 139 mmol/L Normal 136-145 [facility] Comment on above: Performed By: #### A 1C #### [facility] [address] [place] [address] Dr. David Magana Urea nitrogen [Mass/Vol] 33.0 mg/dL Critically high 7.0-18.0 [facility] Comment on above: Performed By: #### A 1C #### [facility] [address] [place] [address] Dr. David Magana Urea nitrogen/Creatinine [Mass ratio] 26.2 mg/mg Normal [facility] Comment on above: Performed By: #### A 1C #### [facility] [address] [place] [address] Dr. David Magana BNPon 07-20-2022 Natriuretic peptide B (Bld) [Mass/Vol] 7478.0 pg/mL Critically high <=1,800.0 [facility] Comment on above: Performed By: #### A 1C #### [facility] [address] [place] [address] Dr. David Magana CBC AUTO DIFFon 07-20-2022 BASO # 0.1 103/ul Normal 0.0-0.1 [facility] Comment on above: Performed By: #### M G, BMP, PHOS #### [facility] [address] [place] [address] Dr. David Magana Basophils/100 WBC (Bld) 0.8 % Normal 0.2-2.0 [facility] Comment on above: Performed By: #### M ERICK Faith, PHOS #### [facility] [address] [place] [address] Dr. David Magana EO # 0.1 103/ul Normal 0.0-0.7 [facility] Comment on above: Performed By: #### M Marcell BMP, PHOS #### [facility] [address] [place] [address] Dr. David Magana Eosinophils/100 WBC (Bld) 0.6 % Critically low 0.9-7.0 [facility] Comment on above: Performed By: #### M ERICK Faith, PHOS #### [facility] [address] [place] [address] Dr. David Magana Erythrocyte distribution width (RBC) [Ratio] 13.4 % Normal 11.0-15.0 [facility] Comment on above: Performed By: #### ERICK Jacques, PHOS #### [facility] [address] [place] [address] Dr. David Magana Hematocrit (Bld) [Volume fraction] 43.2 % Normal 42.0-54.0 [facility] Comment on above: Performed By: #### ERICK Jacques, PHOS #### [facility] [address] [place] [address] Dr. David Magana Hemoglobin (Bld) [Mass/Vol] 14.2 g/dL Normal 14.0-18.0 [facility] Comment on above: Performed By: #### ERICK Jacques, PHOS #### [facility] [address] [place] [address] Dr. David Magana IG # 0.21 10e3/ul Critically high 0.00-0.03 [facility] Comment on above: Performed By: #### M Marcell BMP, PHOS #### [facility] [address] [place] [address] Dr. David Magana IG % 2.0 % Critically high 0.0-0.5 [facility] Comment on above: Performed By: #### M Marcell, BMP, PHOS #### [facility] [address] [address] [address] David Magana LYMPH # 0.8 103/ul Critically low 1.2-3.8 [facility] Comment on above: Performed By: #### M ERICK Faith, PHOS #### [facility] [address] [address] [address] David Magana Lymphocytes/100 WBC (Bld) 7.7 % Critically low 20.5-60.0 [facility] Comment on above: Performed By: #### M Marcell, ERICK, PHOS #### [facility] [address] [address] [address] David Magana MANUAL DIFF REQ NO Normal [facility] Comment on above: Performed By: #### M ERICK Faith, PHOS #### [facility] [address] [place] [address] Dr. David Magana MCH (RBC) [Entitic mass] 33.2 pg Normal 25.9-34.0 [facility] Comment on above: Performed By: #### M ERICK Faith, PHOS #### [facility] [address] [place] [address] Dr. David Magana MCHC (RBC) [Mass/Vol] 32.9 g/dL Normal 29.9-35.2 [facility] Comment on above: Performed By: #### M ERICK Faith, PHOS #### [facility] [address] [place] [address] Dr. David Magana MCV (RBC) [Entitic vol] 100.9 fL Critically high 80.0-94.0 [facility] Comment on above: Performed By: #### M ERICK Faith, PHOS #### [facility] [address] [address] [address] David Magana MONO # 1.0 103/ul Critically high 0.3-0.8 [facility] Comment on above: Performed By: #### M ERICK Faith, PHOS #### [facility] [address] [place] [address] Dr. David Magana Monocytes/100 WBC (Bld) 10.0 % Normal 1.7-12.0 [facility] Comment on above: Performed By: #### ERICK Jacques, PHOS #### [facility] [address] [place] [address] Dr. David Magana NEUT # 8.1 103/ul Critically high 1.4-6.5 [facility] Comment on above: Performed By: #### ERICK Jacques, PHOS #### [facility] [address] [place] [address] Dr. David Magana Neutrophils/100 WBC (Bld) 78.9 % Critically high 43.0-75.0 [facility] Comment on above: Performed By: #### ERICK Jacques, PHOS #### [facility] [address] [place] [address] Dr. David Magana Platelet mean volume (Bld) [Entitic vol] 10.8 fL Normal 9.5-13.5 [facility] Comment on above: Performed By: #### ERICK Jacques, PHOS #### [facility] [address] [place] [address] Dr. David Magana PLT 172 103/ul Normal 150-450 [facility] Comment on above: Performed By: #### ERICK Jacques, PHOS #### [facility] [address] [place] [address] Dr. David Magana RBC 4.28 106/ul Critically low 4.70-6.10 [facility] Comment on above: Performed By: #### ERICK Jacques, PHOS #### [facility] [address] [place] [address] Dr. David Magana WBC 10.3 103/ul Normal 4.0-11.0 [facility] Comment on above: Performed By: #### ERICK Jacques, PHOS #### [facility] [address] [place] [address] Dr. David Magana CULTURE URINEon 07-20-2022 CULTURE [...] F Trimethoprim/Sulfame thoxazole >=320 R F Normal [facility] Comment on above: Performed By: #### M G, BMP, PHOS #### [facility] [address] [place] [address] Dr. David Magana PROF 14(COMP METB)on 022 Albumin [Mass/Vol] 2.6 g/dL Critically low 3.4-5.0 [facility] Comment on above: Performed By: #### A 1C #### [facility] [address] [place] [address] Dr. David Magana Albumin/Globulin [Mass ratio] 0.9 {ratio} Normal [facility] Comment on above: Performed By: #### A 1C #### [facility] [address] [place] [address] Dr. David Magana ALP [Catalytic activity/Vol] 48 U/L Normal 46-116 [facility] Comment on above: Performed By: #### A 1C #### [facility] [address] [place] [address] Dr. David Magana ALT [Catalytic activity/Vol] 27 U/L Normal 16-63 [facility] Comment on above: Performed By: #### A 1C #### [facility] [address] [place] [address] Dr. David Magana Anion gap [Moles/Vol] 13.4 mmol/L Normal [facility] Comment on above: Performed By: #### A 1C #### [facility] [address] [place] [address] Dr. David Magana AST [Catalytic activity/Vol] 22 U/L Normal 15-37 [facility] Comment on above: Performed By: #### A 1C #### [facility] [address] [address] [address] David Magana Bilirubin [Mass/Vol] 0.5 mg/dL Normal 0.2-1.0 [facility] Comment on above: Performed By: #### A 1C #### [facility] [address] [address] [address] David Magana Calcium [Mass/Vol] 8.3 mg/dL Critically low 8.5-10.1 [facility] Comment on above: Performed By: #### A 1C #### [facility] [address] [address] [address] David Magana Chloride [Moles/Vol] 105 mmol/L Normal 98-107 [facility] Comment on above: Performed By: #### A 1C #### [facility] [address] [address] [address] David Magana CO2 [Moles/Vol] 21.0 mmol/L Normal 21.0-32.0 [facility] Comment on above: Performed By: #### A 1C #### [facility] [address] [address] [address] David Magana Creatinine [Mass/Vol] 1.38 mg/dL Critically high 0.70-1.30 [facility] Comment on above: Performed By: #### A 1C #### [facility] [address] [address] [address] David Magana EGFR-AF BAR[place]IAN 60 mL/min/1.73m2 Normal >=60 [facility] Comment on above: Performed By: #### A 1C #### [facility] [address] [address] [address] David Magana EGFR-NON AF [place] 49 mL/min/1.73m2 Critically low >=60 [facility] Comment on above: Performed By: #### A 1C #### [facility] [address] [address] [address] David Magana Globulin (S) [Mass/Vol] 2.8 g/dL Normal [facility] Comment on above: Performed By: #### A 1C #### [facility] [address] [place] [address] Dr. David Magana Glucose [Mass/Vol] 156 mg/dL Critically high 74-106 T [facility] Comment on above: Performed By: #### A 1C #### [facility] [address] [place] [address] Dr. David Magana Potassium [Moles/Vol] 4.4 mmol/L Normal 3.5-5.1 [facility] Comment on above: Performed By: #### A 1C #### [facility] [address] [place] [address] Dr. David Magana Protein [Mass/Vol] 5.4 g/dL Critically low 6.4-8.2 [facility] Comment on above: Performed By: #### A 1C #### [facility] [address] [place] [address] Dr. David Magana Sodium [Moles/Vol] 135 mmol/L Critically low 136-145 [facility] Comment on above: Performed By: #### A 1C #### [facility] [address] [place] [address] Dr. David Magana Urea nitrogen [Mass/Vol] 40.0 mg/dL Critically high 7.0-18.0 [facility] Comment on above: Performed By: #### A 1C #### [facility] [address] [place] [address] Dr. David Magana Urea nitrogen/Creatinine [Mass ratio] 29.0 mg/mg Normal [facility] Comment on above: Performed By: #### A 1C #### [facility] [address] [place] [address] Dr. David Magana BNPon 07-19-2022 Natriuretic peptide B (Bld) [Mass/Vol] 09621.0 pg/mL Critically high <=1,800.0 [facility] Comment on above: Performed By: #### C VDTB #### [facility] [address] [place] [address] Dr. David Magana CBC AUTO DIFFon 07-19-2022 BASO # 0.0 103/ul Normal 0.0-0.1 [facility] Comment on above: Performed By: #### C BC #### [facility] [address] [address] [address] David Magana Basophils/100 WBC (Bld) 0.3 % Normal 0.2-2.0 [facility] Comment on above: Performed By: #### C BC #### [facility] [address] [address] [address] David Magana EO # 0.0 103/ul Normal 0.0-0.7 [facility] Comment on above: Performed By: #### C BC #### [facility] [address] [address] [address] David Magana Eosinophils/100 WBC (Bld) 0.2 % Critically low 0.9-7.0 [facility] Comment on above: Performed By: #### C BC #### [facility] [address] [address] [address] David Magana Erythrocyte distribution width (RBC) [Ratio] 13.4 % Normal 11.0-15.0 [facility] Comment on above: Performed By: #### C BC #### [facility] [address] [address] [address] David Magana Hematocrit (Bld) [Volume fraction] 43.4 % Normal 42.0-54.0 [facility] Comment on above: Performed By: #### C BC #### [facility] [address] [address] [address] David Magana Hemoglobin (Bld) [Mass/Vol] 14.6 g/dL Normal 14.0-18.0 [facility] Comment on above: Performed By: #### C BC #### [facility] [address] [address] [address] David Magana IG # 0.18 10e3/ul Critically high 0.00-0.03 [facility] Comment on above: Performed By: #### C BC #### [facility] [address] [address] [address] David Magana IG % 1.5 % Critically high 0.0-0.5 [facility] Comment on above: Performed By: #### C BC #### [facility] [address] [address] [address] David Magana LYMPH # 0.8 103/ul Critically low 1.2-3.8 [facility] Comment on above: Performed By: #### C BC #### [facility] [address] [address] [address] David Magana Lymphocytes/100 WBC (Bld) 6.6 % Critically low 20.5-60.0 [facility] Comment on above: Performed By: #### C BC #### [facility] [address] [address] [address] David Magana MANUAL DIFF REQ NO Normal [facility] Comment on above: Performed By: #### C BC #### [facility] [address] [place] [address] Dr. David Magana MCH (RBC) [Entitic mass] 33.7 pg Normal 25.9-34.0 [facility] Comment on above: Performed By: #### C BC #### [facility] [address] [place] [address] Dr. David Magana MCHC (RBC) [Mass/Vol] 33.6 g/dL Normal 29.9-35.2 [facility] Comment on above: Performed By: #### C BC #### [facility] [address] [place] [address] Dr. David Magana MCV (RBC) [Entitic vol] 100.2 fL Critically high 80.0-94.0 [facility] Comment on above: Performed By: #### C BC #### [facility] [address] [place] [address] Dr. David Magana MONO # 1.1 103/ul Critically high 0.3-0.8 [facility] Comment on above: Performed By: #### C BC #### [facility] [address] [place] [address] Dr. David Magana Monocytes/100 WBC (Bld) 9.3 % Normal 1.7-12.0 [facility] Comment on above: Performed By: #### C BC #### [facility] [address] [address] [address] David Magana NEUT # 9.6 103/ul Critically high 1.4-6.5 [facility] Comment on above: Performed By: #### C BC #### [facility] [address] [address] [address] David Magana Neutrophils/100 WBC (Bld) 82.1 % Critically high 43.0-75.0 [facility] Comment on above: Performed By: #### C BC #### [facility] [address] [address] [address] David Magana Platelet mean volume (Bld) [Entitic vol] 10.8 fL Normal 9.5-13.5 [facility] Comment on above: Performed By: #### C BC #### [facility] [address] [address] [address] David Magana PLT 202 103/ul Normal 150-450 [facility] Comment on above: Performed By: #### C BC #### [facility] [address] [address] [address] David Magana RBC 4.33 106/ul Critically low 4.70-6.10 [facility] Comment on above: Performed By: #### C BC #### [facility] [address] [address] [address] David Magana WBC 11.7 103/ul Critically high 4.0-11.0 [facility] Comment on above: Performed By: #### C BC #### [facility] [address] [address] [address] David Magana PROF 14(COMP METB)on 022 Albumin [Mass/Vol] 3.4 g/dL Normal 3.4-5.0 [facility] Comment on above: Performed By: #### A 1C #### [facility] [address] [place] [address] Dr. David Magana Albumin/Globulin [Mass ratio] 1.1 {ratio} Normal [facility] Comment on above: Performed By: #### A 1C #### [facility] [address] [address] [address] David Magana ALP [Catalytic activity/Vol] 63 U/L Normal 46-116 [facility] Comment on above: Performed By: #### A 1C #### [facility] [address] [address] [address] David Magana ALT [Catalytic activity/Vol] 34 U/L Normal 16-63 [facility] Comment on above: Performed By: #### A 1C #### [facility] [address] [place] [address] Dr. David Magana Anion gap [Moles/Vol] 20.9 mmol/L Normal [facility] Comment on above: Performed By: #### A 1C #### [facility] [address] [place] [address] Dr. David Magana AST [Catalytic activity/Vol] 18 U/L Normal 15-37 [facility] Comment on above: Performed By: #### A 1C #### [facility] [address] [place] [address] Dr. David Magana Bilirubin [Mass/Vol] 0.5 mg/dL Normal 0.2-1.0 [facility] Comment on above: Performed By: #### A 1C #### [facility] [address] [place] [address] Dr. David Magana Calcium [Mass/Vol] 8.5 mg/dL Normal 8.5-10.1 [facility] Comment on above: Performed By: #### A 1C #### [facility] [address] [place] [address] Dr. David Magana Chloride [Moles/Vol] 99 mmol/L Normal 98-107 [facility] Comment on above: Performed By: #### A 1C #### [facility] [address] [place] [address] Dr. David Magana CO2 [Moles/Vol] 19.1 mmol/L Critically low 21.0-32.0 [facility] Comment on above: Performed By: #### A 1C #### [facility] [address] [address] [address] David Magana Creatinine [Mass/Vol] 1.80 mg/dL Critically high 0.70-1.30 [facility] Comment on above: Performed By: #### A 1C #### [facility] [address] [address] [address] David Magana EGFR-AF BARBADIAN 44 mL/min/1.73m2 Critically low >=60 [facility] Comment on above: Performed By: #### A 1C #### [facility] [address] [address] [address] David Magana EGFR-NON AF BAR[place] 36 mL/min/1.73m2 Critically low >=60 [facility] Comment on above: Performed By: #### A 1C #### [facility] [address] [address] [address] David Magana Globulin (S) [Mass/Vol] 3.2 g/dL Normal [facility] Comment on above: Performed By: #### A 1C #### [facility] [address] [address] [address] David Magana Glucose [Mass/Vol] 287 mg/dL Critically high 74-106 [facility] Comment on above: Performed By: #### A 1C #### [facility] [address] [address] [address] David Magana Potassium [Moles/Vol] 5.0 mmol/L Normal 3.5-5.1 [facility] Comment on above: Performed By: #### A 1C #### [facility] [address] [address] [address] David Magana Protein [Mass/Vol] 6.6 g/dL Normal 6.4-8.2 [facility] Comment on above: Performed By: #### A 1C #### [facility] [address] [address] [address] David Magana Sodium [Moles/Vol] 134 mmol/L Critically low 136-145 [facility] Comment on above: Performed By: #### A 1C #### [facility] [address] [address] [address] David Magana Urea nitrogen [Mass/Vol] 51.0 mg/dL Critically high 7.0-18.0 [facility] Comment on above: Performed By: #### A 1C #### [facility] [address] [place] [address] Dr. David Magana Urea nitrogen/Creatinine [Mass ratio] 28.3 mg/mg Normal [facility] Comment on above: Performed By: #### A 1C #### [facility] [address] [place] [address] Dr. David Magana BLOOD GASES BTYon 07-18-2022 02 MODE NASAL CANNULA Normal [facility] Comment on above: Performed By: #### A 1C #### [facility] [address] [place] [address] Dr. David Magana ALLENS TEST Positive Normal [facility] Comment on above: Performed By: #### A 1C #### [facility] [address] [place] [address] Dr. David Magana Base excess Calc (Bld) [Moles/Vol] -9.0000 mmol/L Critically low -2.0-2.0 [facility] Comment on above: Performed By: #### A 1C #### [facility] [address] [place] [address] Dr. David Magana BIPAP PRESSURE Normal [facility] Comment on above: Performed By: #### A 1C #### [facility] [address] [place] [address] Dr. David Magana CPAP Normal [facility] Comment on above: Performed By: #### A 1C #### [facility] [address] [place] [address] Dr. David Magana FIO2 Normal [facility] Comment on above: Performed By: #### A 1C #### [facility] [address] [place] [address] Dr. David Magana HCO3 (Bld) [Moles/Vol] 18.4 mmol/L Critically low 22.0-26.0 [facility] Comment on above: Performed By: #### A 1C #### [facility] [address] [place] [address] Dr. David Magana LPM 1.5 Normal [facility] Comment on above: Performed By: #### A 1C #### [facility] [address] [place] [address] Dr. David Magana MINUTE VOLUME Normal [facility] Comment on above: Performed By: #### A 1C #### [facility] [address] [place] [address] Dr. David Magana Oxygen (Bld) [Partial pressure] 69.5 mm[Hg] Critically low 80.0-100.0 [facility] Comment on above: Performed By: #### A 1C #### [facility] [address] [place] [address] Dr. David Magana Oxygen saturation in Blood 94.2 % Critically low 95.0-100.0 [facility] Comment on above: Performed By: #### A 1C #### [facility] [address] [place] [address] Dr. David Magana PCO2 29.6 mmHg Critically low 35.0-45.0 [facility] Comment on above: Performed By: #### A 1C #### [facility] [address] [place] [address] Dr. David Magana PEEP [facility] Comment on above: Performed By: #### A 1C #### [facility] [address] [place] [address] Dr. David Magana pH (Bld) 7.355 [pH] Normal 7.350-7.450 [facility] Comment on above: Performed By: #### A 1C #### [facility] [address] [place] [address] Dr. David Magana PIP [facility] Comment on above: Performed By: #### A 1C #### [facility] [address] [place] [address] Dr. David Magana PS [facility] Comment on above: Performed By: #### A 1C #### [facility] [address] [place] [address] Dr. David Magana PUNCTURE SITE LR Normal [facility] Comment on above: Performed By: #### A 1C #### [facility] [address] [place] [address] Dr. David Magana RATE [facility] Comment on above: Performed By: #### A 1C #### [facility] [address] [place] [address] Dr. David Magana VENT MODE [facility] Comment on above: Performed By: #### A 1C #### [facility] [address] [place] [address] Dr. David Magana [place] [facility] Comment on above: Performed By: #### A 1C #### [facility] [address] [place] [address] Dr. David Magana BNPon 07-18-2022 Natriuretic peptide B (Bld) [Mass/Vol] 7047.0 pg/mL Critically high <=1,800.0 [facility] Comment on above: Performed By: #### C VDTBH #### [facility] [address] [place] [address] Dr. David Magana CARDIAC BARRIE 3-6on 2 CK [Catalytic activity/Vol] 396 U/L Critically high 39-308 [facility] Comment on above: Performed By: #### M ERICK Faith, PHOS #### [facility] [address] [place] [address] Dr. David Magana CK.MB [Mass/Vol] 2.94 ng/mL Normal <=3.60 [facility] Comment on above: Performed By: #### M ERICK Faith, PHOS #### [facility] [address] [place] [address] Dr. David Magana HSTROP 11.1 pg/mL Normal 4.0-76.1 [facility] Comment on above: Result Comment: CUT- OFF POINTS HAVE BEEN ESTABLISHED BASED ON THE FOURTH UNIVERSAL DEFINITIONS OF MYOCARDIAL INFARCTION. THE UPPER REFERENCE LIMIT (URL) OF TROPONIN, DEFINED THE 99TH PERCENTILE OF cTnI DISTRIBUTION IN A REFERENCE POPULATION, HAS BEEN CONFIRMED THE DECISION THRESHOLD FOR ID DIAGNOSIS. Performed By: #### M Marcell BMP, PHOS #### [facility] [address] [address] [address] David Magana CK [Catalytic activity/Vol] 58 U/L Normal 39-308 [facility] Comment on above: Performed By: #### M G, BMP, PHOS #### [facility] [address] [address] [address] David Magana CK.MB [Mass/Vol] 1.71 ng/mL Normal <=3.60 [facility] Comment on above: Performed By: #### M G, BMP, PHOS #### [facility] [address] [address] [address] David Magana HSTROP 10.6 pg/mL Normal 4.0-76.1 [facility] Comment on above: Result Comment: CUT- OFF POINTS HAVE BEEN ESTABLISHED BASED ON THE FOURTH UNIVERSAL DEFINITIONS OF MYOCARDIAL INFARCTION. THE UPPER REFERENCE LIMIT (URL) OF TROPONIN, DEFINED THE 99TH PERCENTILE OF cTnI DISTRIBUTION IN A REFERENCE POPULATION, HAS BEEN CONFIRMED THE DECISION THRESHOLD FOR ID DIAGNOSIS. Performed By: #### M G, BMP, PHOS #### [facility] [address] [place] [address] Dr. David Magana CBC AUTO DIFFon 07-18-2022 BASO # 0.0 103/ul Normal 0.0-0.1 [facility] Comment on above: Performed By: #### M G, BMP, PHOS #### [facility] [address] [address] [address] David Magana Basophils/100 WBC (Bld) 0.2 % Normal 0.2-2.0 [facility] Comment on above: Performed By: #### M G, BMP, PHOS #### [facility] [address] [address] [address] David Magana EO # 0.0 103/ul Normal 0.0-0.7 [facility] Comment on above: Performed By: #### M G, BMP, PHOS #### [facility] [address] [address] [address] David Magana Eosinophils/100 WBC (Bld) 0.2 % Critically low 0.9-7.0 [facility] Comment on above: Performed By: #### ERICK Jacques, PHOS #### [facility] [address] [place] [address] Dr. David Magana Erythrocyte distribution width (RBC) [Ratio] 13.2 % Normal 11.0-15.0 [facility] Comment on above: Performed By: #### ERICK Jacques, PHOS #### [facility] [address] [place] [address] Dr. David Magana Hematocrit (Bld) [Volume fraction] 43.8 % Normal 42.0-54.0 [facility] Comment on above: Performed By: #### ERICK Jacques, PHOS #### [facility] [address] [place] [address] Dr. David Magana Hemoglobin (Bld) [Mass/Vol] 14.5 g/dL Normal 14.0-18.0 [facility] Comment on above: Performed By: #### ERICK Jacques, PHOS #### [facility] [address] [place] [address] Dr. David Magana IG # 0.15 10e3/ul Critically high 0.00-0.03 [facility] Comment on above: Performed By: #### ERICK Jacques, PHOS #### [facility] [address] [place] [address] Dr. David Magana IG % 1.3 % Critically high 0.0-0.5 [facility] Comment on above: Performed By: #### ERICK Jacques, PHOS #### [facility] [address] [place] [address] Dr. David Magana LYMPH # 0.5 103/ul Critically low 1.2-3.8 [facility] Comment on above: Performed By: #### ERICK Jacques, PHOS #### [facility] [address] [place] [address] Dr. David Magana Lymphocytes/100 WBC (Bld) 3.8 % Critically low 20.5-60.0 [facility] Comment on above: Performed By: #### ERICK Jacques, PHOS #### [facility] [address] [place] [address] Dr. David Magana MANUAL DIFF REQ NO Normal [facility] Comment on above: Performed By: #### M G, BMP, PHOS #### [facility] [address] [place] [address] Dr. David Magana MCH (RBC) [Entitic mass] 32.7 pg Normal 25.9-34.0 [facility] Comment on above: Performed By: #### M G, BMP, PHOS #### [facility] [address] [place] [address] Dr. David Magana MCHC (RBC) [Mass/Vol] 33.1 g/dL Normal 29.9-35.2 [facility] Comment on above: Performed By: #### M G, BMP, PHOS #### [facility] [address] [place] [address] Dr. David Magana MCV (RBC) [Entitic vol] 98.9 fL Critically high 80.0-94.0 [facility] Comment on above: Performed By: #### M G, BMP, PHOS #### [facility] [address] [place] [address] Dr. David Magana MONO # 0.7 103/ul Normal 0.3-0.8 [facility] Comment on above: Performed By: #### M G, BMP, PHOS #### [facility] [address] [place] [address] Dr. David Magana Monocytes/100 WBC (Bld) 5.7 % Normal 1.7-12.0 [facility] Comment on above: Performed By: #### M G, BMP, PHOS #### [facility] [address] [place] [address] Dr. David Magana NEUT # 10.4 103/ul Critically high 1.4-6.5 [facility] Comment on above: Performed By: #### M G, BMP, PHOS #### [facility] [address] [place] [address] Dr. David Magana Neutrophils/100 WBC (Bld) 88.8 % Critically high 43.0-75.0 [facility] Comment on above: Performed By: #### ERICK Jacques, PHOS #### [facility] [address] [address] [address] David Magana Platelet mean volume (Bld) [Entitic vol] 11.0 fL Normal 9.5-13.5 [facility] Comment on above: Performed By: #### ERICK Jacques, PHOS #### [facility] [address] [address] [address] David Magana PLT 198 103/ul Normal 150-450 [facility] Comment on above: Performed By: #### ERICK Jacques, PHOS #### [facility] [address] [address] [address] David Magana RBC 4.43 106/ul Critically low 4.70-6.10 [facility] Comment on above: Performed By: #### ERICK Jacques, PHOS #### [facility] [address] [address] [address] David Magana WBC 11.8 103/ul Critically high 4.0-11.0 [facility] Comment on above: Performed By: #### ERICK Jacques, PHOS #### [facility] [address] [address] [address] HEAD WO CONon [...] 3. Vascular calcification. Electronically authenticated by: FRANCISCO SUAREZS Date: 2022-07-18 05:12 Normal [facility] Covid-19 PCR (CVDTB)on SARS-CoV-2 (COVID-19) RNA SULTANA+probe Ql (Unsp spec) Detected Critically abnormal NOT DETECTED [facility] Comment on above: Result Comment: This test is not yet approved or cleared by the [place] FDA. When there are no FDA-approved or cleared tests available, and other criteria are met, FDA can make tests available under an emergency access mechanism called an Emergency Use Authorization (EUA). The EUA for this test is supported by the [place] of Health and Human Service's declaration that [...] used). Performed By: #### C VDTBH #### [facility] [address] [place] [address] Dr. David Magana D-DIMERon 07-18-2022 D-DIMER 1.69 mg/L FEU Critically high <=0.59 [facility] Comment on above: Performed By: #### C BC #### [facility] [address] [place] [address] Dr. David Magana D-DIMER COMMENTS SEE BELOW Normal [facility] Comment on above: Result Comment: Incr eases [...] hospitalization. Performed By: #### C BC #### [facility] [address] [place] [address] Dr. aDvid Magana POINT OF CARE GLUCOSEon Glucose [Mass/Vol] 329 mg/dL Critically high 74-106 [facility] Comment on above: Performed By: #### P OCGLUC #### [facility] [address] [place] [address] Dr. David Magana Glucose [Mass/Vol] 354 mg/dL Critically high 74-106 [facility] Comment on above: Performed By: #### P OCGLUC #### [facility] [address] [address] [address] David Magana PROF 14(COMP METB)on 022 Albumin [Mass/Vol] 3.6 g/dL Normal 3.4-5.0 [facility] Comment on above: Performed By: #### C VDTBH #### [facility] [address] [place] [address] Dr. David Magana Albumin/Globulin [Mass ratio] 1.1 {ratio} Normal [facility] Comment on above: Performed By: #### C VDTBH #### [facility] [address] [place] [address] Dr. David Magana ALP [Catalytic activity/Vol] 67 U/L Normal 46-116 [facility] Comment on above: Performed By: #### C VDTBH #### [facility] [address] [place] [address] Dr. David Magana ALT [Catalytic activity/Vol] 33 U/L Normal 16-63 [facility] Comment on above: Performed By: #### C VDTBH #### [facility] [address] [place] [address] Dr. David Magana Anion gap [Moles/Vol] 23.5 mmol/L Normal [facility] Comment on above: Performed By: #### C VDTBH #### [facility] [address] [place] [address] Dr. David Magana AST [Catalytic activity/Vol] 13 U/L Critically low 15-37 [facility] Comment on above: Performed By: #### C VDTBH #### [facility] [address] [place] [address] Dr. David Magana Bilirubin [Mass/Vol] 0.6 mg/dL Normal 0.2-1.0 [facility] Comment on above: Performed By: #### C VDTBH #### [facility] [address] [place] [address] Dr. David Magana Calcium [Mass/Vol] 8.4 mg/dL Critically low 8.5-10.1 [facility] Comment on above: Performed By: #### C VDTBH #### [facility] [address] [place] [address] Dr. David Magana Chloride [Moles/Vol] 93 mmol/L Critically low 98-107 [facility] Comment on above: Performed By: #### C VDTBH #### [facility] [address] [place] [address] Dr. David Magana CO2 [Moles/Vol] 17.9 mmol/L Critically low 21.0-32.0 [facility] Comment on above: Performed By: #### C VDTBH #### [facility] [address] [place] [address] Dr. David Magana Creatinine [Mass/Vol] 2.15 mg/dL Critically high 0.70-1.30 [facility] Comment on above: Performed By: #### C VDTBH #### [facility] [address] [place] [address] Dr. David Magana EGFR-AF BARBADIAN 36 mL/min/1.73m2 Critically low >=60 [facility] Comment on above: Performed By: #### C VDTBH #### [facility] [address] [place] [address] Dr. David Magana EGFR-NON AF BARBADIAN 30 mL/min/1.73m2 Critically low >=60 [facility] Comment on above: Performed By: #### C VDTBH #### [facility] [address] [place] [address] Dr. David Magana Globulin (S) [Mass/Vol] 3.2 g/dL Normal [facility] Comment on above: Performed By: #### C VDTBH #### [facility] [address] [address] [address] David Magana Glucose [Mass/Vol] 345 mg/dL Critically high 74-106 [facility] Comment on above: Performed By: #### C VDTBH #### [facility] [address] [place] [address] Dr. David Magana Potassium [Moles/Vol] 5.4 mmol/L Critically high 3.5-5.1 [facility] Comment on above: Performed By: #### C VDTBH #### [facility] [address] [place] [address] Dr. David Magana Performed By: #### K #### [facility] [address] [place] [address] Dr. David Magana Protein [Mass/Vol] 6.8 g/dL Normal 6.4-8.2 [facility] Comment on above: Performed By: #### C VDTBH #### [facility] [address] [place] [address] Dr. David Magana Sodium [Moles/Vol] 129 mmol/L Critically low 136-145 [facility] Comment on above: Performed By: #### C VDTBH #### [facility] [address] [place] [address] Dr. David Magana Urea nitrogen [Mass/Vol] 65.0 mg/dL Critically high 7.0-18.0 [facility] Comment on above: Performed By: #### C VDTBH #### [facility] [address] [place] [address] Dr. David Magana Urea nitrogen/Creatinine [Mass ratio] 30.2 mg/mg Normal [facility] Comment on above: Performed By: #### C VDTBH #### [facility] [address] [place] [address] Dr. David Magana UA RANDOM W/MICROSCOPICon BACTERIA NONE SEEN Normal NONE SEEN [facility] Comment on above: Performed By: #### M G, BMP, PHOS #### [facility] [address] [place] [address] Dr. David Magana Bilirubin Ql (U) Negative Normal NEGATIVE [facility] Comment on above: Performed By: #### M G, BMP, PHOS #### [facility] [address] [place] [address] Dr. David Magana CAST NONE SEEN Normal NONE SEEN [facility] Comment on above: Performed By: #### M G, BMP, PHOS #### [facility] [address] [address] [address] David Magana Clarity (U) CLEAR Normal CLEAR [facility] Comment on above: Performed By: #### M G, BMP, PHOS #### [facility] [address] [address] [address] David Magana Color (U) LT. YELLOW Normal YELLOW [facility] Comment on above: Performed By: #### M G, BMP, PHOS #### [facility] [address] [place] [address] Dr. David Magana Crystals LM Nom (Urine sed) NONE SEEN Normal NONE SEEN [facility] Comment on above: Performed By: #### M G, BMP, PHOS #### [facility] [address] [place] [address] Dr. David Magana Epithelial cells LM Ql (Urine sed) RARE Normal NONE SEEN /RARE [facility] Comment on above: Performed By: #### M G, BMP, PHOS #### [facility] [address] [place] [address] Dr. David Magana Glucose Ql (U) 1000 mg/dl Abnormal NEGATIVE [facility] Comment on above: Performed By: #### M G, BMP, PHOS #### [facility] [address] [place] [address] Dr. David Magana Hemoglobin Ql (U) Negative Normal NEGATIVE [facility] Comment on above: Performed By: #### M G, BMP, PHOS #### [facility] [address] [place] [address] Dr. David Magana Ketones Ql (U) 15 mg/dl Abnormal NEGATIVE [facility] Comment on above: Performed By: #### M G, BMP, PHOS #### [facility] [address] [address] [address] David Magana LEUKOCYTES Negative Normal NEGATIVE [facility] Comment on above: Performed By: #### M G, BMP, PHOS #### [facility] [address] [place] [address] Dr. David Magana MUCOUS NONE SEEN Normal NONE SEEN [facility] Comment on above: Performed By: #### M G, BMP, PHOS #### [facility] [address] [address] [address] David Magana Nitrite Ql (U) Negative Normal NEGATIVE [facility] Comment on above: Performed By: #### M G, BMP, PHOS #### [facility] [address] [place] [address] Dr. David Magana pH (U) 5.5 [pH] Normal 5-9 [facility] Comment on above: Performed By: #### M G, BMP, PHOS #### [facility] [address] [place] [address] Dr. David Magana RBC NONE SEEN Abnormal 0-2 [facility] Comment on above: Performed By: #### M G, BMP, PHOS #### [facility] [address] [place] [address] Dr. David Magana SPEC GRAVITY <=1.005 Abnormal 1.005-<=1.025 [facility] Comment on above: Performed By: #### M G, BMP, PHOS #### [facility] [address] [place] [address] Dr. David Magana UA PROTEIN Negative Normal NEGATIVE/ TRACE [facility] Comment on above: Performed By: #### M G, BMP, PHOS #### [facility] [address] [place] [address] Dr. David Magana Urobilinogen Qn (U) 0.2 {Dionna'U}/dL Normal 0.2 - 1. 0 [facility] Comment on above: Performed By: #### M G, BMP, PHOS #### [facility] [address] [place] [address] Dr. David Magana WBC NONE SEEN Normal NONE SEEN [facility] Comment on above: Performed By: #### M ERICK Faith, MARCELAS #### [facility] [address] [address] [address] David Magana XR CHEST 1 Von [...] Yefri DWYER Date: 2022-07-18 00:09 Normal [facility] CARDIAC BARRIE ADMITon 022 CK [Catalytic activity/Vol] 61 U/L Normal 39-308 [facility] Comment on above: Performed By: #### C BC #### [facility] [address] [place] [address] Dr. David Magana CK.MB [Mass/Vol] 1.84 ng/mL Normal <=3.60 [facility] Comment on above: Performed By: #### C BC #### [facility] [address] [place] [address] Dr. David Magana HSTROP 9.4 pg/mL Normal 4.0-76.1 [facility] Comment on above: Result Comment: CUT- OFF POINTS HAVE BEEN ESTABLISHED BASED ON THE FOURTH UNIVERSAL DEFINITIONS OF MYOCARDIAL INFARCTION. THE UPPER REFERENCE LIMIT (URL) OF TROPONIN, DEFINED THE 99TH PERCENTILE OF cTnI DISTRIBUTION IN A REFERENCE POPULATION, HAS BEEN CONFIRMED THE DECISION THRESHOLD FOR ID DIAGNOSIS. Performed By: #### C BC #### [facility] [address] [place] [address] Dr. David Magana DUSTIN 533 ng/mL Critically high 16-96 [facility] Comment on above: Performed By: #### C BC #### [facility] [address] [place] [address] Dr. David Magana CBC AUTO DIFFon 07-17-2022 BASO # 0.0 103/ul Normal 0.0-0.1 [facility] Comment on above: Performed By: #### M ERICK Faith, PHOS #### [facility] [address] [place] [address] Dr. David Magana Basophils/100 WBC (Bld) 0.2 % Normal 0.2-2.0 [facility] Comment on above: Performed By: #### ERICK Jacques, PHOS #### [facility] [address] [place] [address] Dr. David Magana EO # 0.0 103/ul Normal 0.0-0.7 [facility] Comment on above: Performed By: #### ERICK Jacques, PHOS #### [facility] [address] [place] [address] Dr. David Magana Eosinophils/100 WBC (Bld) 0.1 % Critically low 0.9-7.0 [facility] Comment on above: Performed By: #### ERICK Jacques, PHOS #### [facility] [address] [place] [address] Dr. David Magana Erythrocyte distribution width (RBC) [Ratio] 13.2 % Normal 11.0-15.0 [facility] Comment on above: Performed By: #### ERICK Jacques, PHOS #### [facility] [address] [place] [address] Dr. David Magana Hematocrit (Bld) [Volume fraction] 43.1 % Normal 42.0-54.0 [facility] Comment on above: Performed By: #### ERICK Jacques, PHOS #### [facility] [address] [place] [address] Dr. David Magana Hemoglobin (Bld) [Mass/Vol] 14.5 g/dL Normal 14.0-18.0 [facility] Comment on above: Performed By: #### ERICK Jacques, PHOS #### [facility] [address] [place] [address] Dr. David Magana IG # 0.14 10e3/ul Critically high 0.00-0.03 [facility] Comment on above: Performed By: #### M G, BMP, PHOS #### [facility] [address] [place] [address] Dr. David Magana IG % 1.2 % Critically high 0.0-0.5 [facility] Comment on above: Performed By: #### M G, BMP, PHOS #### [facility] [address] [place] [address] Dr. David Magana LYMPH # 0.4 103/ul Critically low 1.2-3.8 [facility] Comment on above: Performed By: #### M G, BMP, PHOS #### [facility] [address] [place] [address] Dr. David aMgana Lymphocytes/100 WBC (Bld) 3.4 % Critically low 20.5-60.0 [facility] Comment on above: Performed By: #### M G, BMP, PHOS #### [facility] [address] [place] [address] Dr. David Magana MANUAL DIFF REQ NO Normal [facility] Comment on above: Performed By: #### M G, BMP, PHOS #### [facility] [address] [place] [address] Dr. David Magana MCH (RBC) [Entitic mass] 33.3 pg Normal 25.9-34.0 [facility] Comment on above: Performed By: #### M G, BMP, PHOS #### [facility] [address] [place] [address] Dr. David Magana MCHC (RBC) [Mass/Vol] 33.6 g/dL Normal 29.9-35.2 [facility] Comment on above: Performed By: #### M G, BMP, PHOS #### [facility] [address] [place] [address] Dr. David Magana MCV (RBC) [Entitic vol] 98.9 fL Critically high 80.0-94.0 [facility] Comment on above: Performed By: #### M G, BMP, PHOS #### [facility] [address] [place] [address] Dr. David Magana MONO # 1.1 103/ul Critically high 0.3-0.8 [facility] Comment on above: Performed By: #### ERICK Jacques, PHOS #### [facility] [address] [place] [address] Dr. David Magana Monocytes/100 WBC (Bld) 8.9 % Normal 1.7-12.0 [facility] Comment on above: Performed By: #### ERICK Jacques, PHOS #### [facility] [address] [place] [address] Dr. David Magana NEUT # 10.3 103/ul Critically high 1.4-6.5 [facility] Comment on above: Performed By: #### ERICK Jacques, PHOS #### [facility] [address] [place] [address] Dr. David Magana Neutrophils/100 WBC (Bld) 86.2 % Critically high 43.0-75.0 [facility] Comment on above: Performed By: #### ERICK Jacques, PHOS #### [facility] [address] [place] [address] Dr. David Magana Platelet mean volume (Bld) [Entitic vol] 11.1 fL Normal 9.5-13.5 [facility] Comment on above: Performed By: #### ERICK Jacques, PHOS #### [facility] [address] [place] [address] Dr. David Magana PLT 229 103/ul Normal 150-450 [facility] Comment on above: Performed By: #### ERICK Jacques, PHOS #### [facility] [address] [place] [address] Dr. David Magana RBC 4.36 106/ul Critically low 4.70-6.10 [facility] Comment on above: Performed By: #### ERICK Jacques, PHOS #### [facility] [address] [place] [address] Dr. David Magana WBC 11.9 103/ul Critically high 4.0-11.0 [facility] Comment on above: Performed By: #### ERICK Jacques, PHOS #### [facility] [address] [address] [address] David Magana PROF CHEM 8 (BAS METB)on Anion gap [Moles/Vol] 26.5 mmol/L Normal [facility] Comment on above: Performed By: #### C BC #### [facility] [address] [address] [address] David Magana Calcium [Mass/Vol] 8.2 mg/dL Critically low 8.5-10.1 [facility] Comment on above: Performed By: #### C BC #### [facility] [address] [address] [address] Daivd Magana Chloride [Moles/Vol] 89 mmol/L Critically low 98-107 [facility] Comment on above: Performed By: #### C BC #### [facility] [address] [place] [address] Dr. David Magana CO2 [Moles/Vol] 14.5 mmol/L Critically low 21.0-32.0 [facility] Comment on above: Performed By: #### C BC #### [facility] [address] [place] [address] Dr. David Magana Creatinine [Mass/Vol] 2.78 mg/dL Critically high 0.70-1.30 [facility] Comment on above: Performed By: #### C BC #### [facility] [address] [place] [address] Dr. David Magana EGFR-AF BARBADIAN 27 mL/min/1.73m2 Critically low >=60 [facility] Comment on above: Performed By: #### C BC #### [facility] [address] [address] [address] David Magana EGFR-NON AF BAR[place]IAN 22 mL/min/1.73m2 Critically low >=60 [facility] Comment on above: Performed By: #### C BC #### [facility] [address] [address] [address] David Magana Glucose [Mass/Vol] 442 mg/dL Critically high 74-106 [facility] Comment on above: Performed By: #### C BC #### [facility] [address] [address] [address] David Magana Potassium [Moles/Vol] 6.0 mmol/L Critically high 3.5-5.1 [facility] Comment on above: Performed By: #### C BC #### [facility] [address] [address] [address] David Magana Sodium [Moles/Vol] 124 mmol/L Critically low 136-145 [facility] Comment on above: Performed By: #### C BC #### [facility] [address] [address] [address] David Magana Urea nitrogen [Mass/Vol] 73.0 mg/dL Critically high 7.0-18.0 [facility] Comment on above: Performed By: #### C BC #### [facility] [address] [address] [address] David Magana Urea nitrogen/Creatinine [Mass ratio] 26.3 mg/mg Normal [facility] Comment on above: Performed By: #### C BC #### [facility] [address] [address] [address] David Magana Covid-19 PCR ([facility])on 06-16 SARS-CoV-2 (COVID-19) RNA SULTANA+probe Ql (Unsp spec) Detected Critically abnormal NOT DETECTED [facility] Comment on above: Result Comment: This test is not yet approved or cleared by the [place] FDA. When there are no FDA-approved or cleared tests available, and other criteria are met, FDA can make tests available under an emergency access mechanism called an Emergency Use Authorization (EUA). The EUA for this test is supported by the [place] of Health and Human Service's (HHS's) declaration [...] By: #### M G, ERICK, PHOS #### [facility] [address] [address] [address] David Magana ECHOCARDIO M/2D COMPLETEon 0 07-01-2022 ECHOCARDIO M/2D COMPLETE Patient: NADIR HEREDIA Exam Date: 07/01/2022 : 1940 Gender:M Ordering : DR CLARIBEL PUGA M.D. Admission #: [id number] Family : VAN JANETBebeto . Order #: [id number] CLICK HERE TO VIEW EXAM ECHOCARDIOGRAM REPORT [...] Rohini Traylor M.D. on 07/01/2022 at 16:27 Normal [facility]on SARS-CoV-2 (COVID-19) RNA SULTANA+probe Ql (Unsp spec) Not detected Normal NOT DETECTED [facility] Comment on above: Result Comment: When diagnostic [...] for this test is supported by the [place] of Health and Human Service's declaration that [...] used). Performed By: #### C VDTB #### [facility] [address] [place] [address] Dr. David Magana CREATININE URINEon 2 URINE CREAT 14.70 mg/dL Critically low 20.00-300.00 [facility] Comment on above: Performed By: #### M G, BMP, PHOS #### [facility] [address] [place] [address] Dr. David aMgana GLYCOHEMOGLOBIN A1Con 2021 ADA RECOMMENDATION SEE BELOW Normal [facility] Comment on above: Result Comment: ADA RECOMMENDED LIMIT 4.0 - 6.0 ADA THERAPEUTIC TARGET < 7.0 ACTION SUGGESTED > 7.0 Performed By: #### A 1C #### [facility] [address] [place] [address] Dr. David Magana Glucose [Mass/Vol] 209 mg/dL Normal [facility] Comment on above: Performed By: #### A 1C #### [facility] [address] [place] [address] Dr. David Magana HbA1c (Bld) [Mass fraction] 8.9 % Critically high 4.5-6.2 [facility] Comment on above: Performed By: #### A 1C #### [facility] [address] [place] [address] Dr. David Magana MAGNESIUMon 06-08-2022 Magnesium [Mass/Vol] 2.3 mg/dL Normal 1.8-2.4 [facility] Comment on above: Performed By: #### M G, BMP, PHOS #### [facility] [address] [place] [address] Dr. David Magana PHOSPHORUSon 06-08-2022 Phosphate [Mass/Vol] 3.5 mg/dL Normal 2.6-4.7 [facility] Comment on above: Performed By: #### M G, BMP, PHOS #### [facility] [address] [address] [address] David Magana PROF CHEM 8 (BAS METB)on Anion gap [Moles/Vol] 10.6 mmol/L Normal [facility] Comment on above: Performed By: #### M G, BMP, PHOS #### [facility] [address] [place] [address] Dr. David Magana Calcium [Mass/Vol] 9.2 mg/dL Normal 8.5-10.1 [facility] Comment on above: Performed By: #### M G, BMP, PHOS #### [facility] [address] [address] [address] David Magana Chloride [Moles/Vol] 102 mmol/L Normal 98-107 [facility] Comment on above: Performed By: #### M G, BMP, PHOS #### [facility] [address] [address] [address] David Magana CO2 [Moles/Vol] 30.1 mmol/L Normal 21.0-32.0 [facility] Comment on above: Performed By: #### M G, BMP, PHOS #### [facility] [address] [address] [address] David Magana Creatinine [Mass/Vol] 1.70 mg/dL Critically high 0.70-1.30 [facility] Comment on above: Performed By: #### M G, BMP, PHOS #### [facility] [address] [address] [address] David Magana EGFR-AF BARBADIAN 47 mL/min/1.73m2 Critically low >=60 [facility] Comment on above: Performed By: #### M ERICK Faith, PHOS #### [facility] [address] [place] [address] Dr. David Magana EGFR-NON AF BARBADIAN 39 mL/min/1.73m2 Critically low >=60 [facility] Comment on above: Performed By: #### M ERICK Faith, PHOS #### [facility] [address] [place] [address] Dr. David Magana Glucose [Mass/Vol] 197 mg/dL Critically high 74-106 T [facility] Comment on above: Performed By: #### M ERICK Faith, PHOS #### [facility] [address] [place] [address] Dr. David Magana Potassium [Moles/Vol] 4.7 mmol/L Normal 3.5-5.1 [facility] Comment on above: Performed By: #### ERICK Jacques, PHOS #### [facility] [address] [place] [address] Dr. David Magana Sodium [Moles/Vol] 138 mmol/L Normal 136-145 [facility] Comment on above: Performed By: #### ERICK Jacques, PHOS #### [facility] [address] [place] [address] Dr. David Magana Urea nitrogen [Mass/Vol] 25.0 mg/dL Critically high 7.0-18.0 [facility] Comment on above: Performed By: #### ERICK Jacques, PHOS #### [facility] [address] [place] [address] Dr. David Magana Urea nitrogen/Creatinine [Mass ratio] 14.7 mg/mg Normal [facility] Comment on above: Performed By: #### ERICK Jacques, PHOS #### [facility] [address] [place] [address] Dr. David Magana PROTEIN RAND URINEon 022 UR PROT <5.0 Normal <=11.9 [facility] Comment on above: Performed By: #### C NED PROTU #### [facility] [address] [place] [address] Dr. David Magana BILIRUBIN CONJUGATED (DIRECT )on 04-28-2022 BILI, CONJUGATED 0.1 mg/dL Normal 0.0-0.2 [facility] Comment on above: Performed By: #### P OCGLUC #### [facility] [address] [place] [address] Dr. David Magana CBC AUTO DIFFon 04-28-2022 BASO # 0.1 103/ul Normal 0.0-0.1 [facility] Comment on above: Performed By: #### C VDTBH #### [facility] [address] [place] [address] Dr. David Magana Basophils/100 WBC (Bld) 0.7 % Normal 0.2-2.0 [facility] Comment on above: Performed By: #### C VDTBH #### [facility] [address] [place] [address] Dr. David Magana EO # 0.5 103/ul Normal 0.0-0.7 [facility] Comment on above: Performed By: #### C VDTBH #### [facility] [address] [place] [address] Dr. David Magana Eosinophils/100 WBC (Bld) 6.7 % Normal 0.9-7.0 [facility] Comment on above: Performed By: #### C VDTBH #### [facility] [address] [place] [address] Dr. David Magana Erythrocyte distribution width (RBC) [Ratio] 13.6 % Normal 11.0-15.0 [facility] Comment on above: Performed By: #### C VDTBH #### [facility] [address] [place] [address] Dr. David Magana Hematocrit (Bld) [Volume fraction] 45.9 % Normal 42.0-54.0 [facility] Comment on above: Performed By: #### C VDTBH #### [facility] [address] [place] [address] Dr. David Magana Hemoglobin (Bld) [Mass/Vol] 14.9 g/dL Normal 14.0-18.0 [facility] Comment on above: Performed By: #### C VDTBH #### [facility] [address] [place] [address] Dr. David Magana IG # 0.03 10e3/ul Normal 0.00-0.03 [facility] Comment on above: Performed By: #### C VDTBH #### [facility] [address] [place] [address] Dr. David Magana IG % 0.4 % Normal 0.0-0.5 [facility] Comment on above: Performed By: #### C VDTBH #### [facility] [address] [place] [address] Dr. David Magana LYMPH # 1.0 103/ul Critically low 1.2-3.8 [facility] Comment on above: Performed By: #### C VDTBH #### [facility] [address] [place] [address] Dr. David Magana Lymphocytes/100 WBC (Bld) 13.4 % Critically low 20.5-60.0 [facility] Comment on above: Performed By: #### C VDTBH #### [facility] [address] [place] [address] Dr. David Magana MANUAL DIFF REQ NO Normal [facility] Comment on above: Performed By: #### C VDTBH #### [facility] [address] [place] [address] Dr. David Magana MCH (RBC) [Entitic mass] 33.8 pg Normal 25.9-34.0 [facility] Comment on above: Performed By: #### C VDTBH #### [facility] [address] [place] [address] Dr. David Magana MCHC (RBC) [Mass/Vol] 32.5 g/dL Normal 29.9-35.2 [facility] Comment on above: Performed By: #### C VDTBH #### [facility] [address] [place] [address] Dr. David Magana MCV (RBC) [Entitic vol] 104.1 fL Critically high 80.0-94.0 [facility] Comment on above: Performed By: #### C VDTBH #### [facility] [address] [place] [address] Dr. David Magana MONO # 0.8 103/ul Normal 0.3-0.8 [facility] Comment on above: Performed By: #### C VDTBH #### [facility] [address] [place] [address] Dr. David Magana Monocytes/100 WBC (Bld) 10.2 % Normal 1.7-12.0 [facility] Comment on above: Performed By: #### C VDTBH #### [facility] [address] [place] [address] Dr. David Magana NEUT # 5.1 103/ul Normal 1.4-6.5 [facility] Comment on above: Performed By: #### C VDTBH #### [facility] [address] [place] [address] Dr. David Magana Neutrophils/100 WBC (Bld) 68.6 % Normal 43.0-75.0 [facility] Comment on above: Performed By: #### C VDTBH #### [facility] [address] [place] [address] Dr. David Magana Platelet mean volume (Bld) [Entitic vol] 11.3 fL Normal 9.5-13.5 [facility] Comment on above: Performed By: #### C VDTBH #### [facility] [address] [place] [address] Dr. David Magana PLT 185 103/ul Normal 150-450 [facility] Comment on above: Performed By: #### C VDTBH #### [facility] [address] [place] [address] Dr. David Magana RBC 4.41 106/ul Critically low 4.70-6.10 [facility] Comment on above: Performed By: #### C VDTBH #### [facility] [address] [place] [address] Dr. David Magana WBC 7.5 103/ul Normal 4.0-11.0 [facility] Comment on above: Performed By: #### C VDTBH #### [facility] [address] [address] [address] David Magana FREE T3on 04-28-2022 FREE T3 2.17 pg/mlL Critically low 2.18-3.98 [facility] Comment on above: Performed By: #### P OCGLUC #### [facility] [address] [address] [address] David Magana LIPID PROFILEon 04-28-2022 CHOL-HDL RATIO NORM SEE BELOW Normal [facility] Comment on above: Result Comment: 3.3 - 4.4 LOW RISK 4.4 - 7.1 AVERAGE RISK 7.1 - 11.0 MODERATE RISK >11.0 HIGH RISK Performed By: #### P OCGLUC #### [facility] [address] [address] [address] David Magana Cholesterol [Mass/Vol] 234 mg/dL Critically high <=200 [facility] Comment on above: Performed By: #### P OCGLUC #### [facility] [address] [address] [address] David Magana Cholesterol in HDL [Mass/Vol] 58 mg/dL Normal 40-60 [facility] Comment on above: Performed By: #### P OCGLUC #### [facility] [address] [address] [address] David Magana Cholesterol in LDL [Mass/Vol] 129.0 mg/dL Normal [facility] Comment on above: Performed By: #### P OCGLUC #### [facility] [address] [address] [address] David Magana Cholesterol.total/Cho lesterol in HDL [Mass ratio] 4.0 {ratio} Normal [facility] Comment on above: Performed By: #### P OCGLUC #### [facility] [address] [address] [address] David Magana HDL NORMAL > or = 60 mg/dl - LOW CARDIOVASCULAR RISK <40 mg/dl - HIGH CARDIOVASCULAR RISK Normal [facility] Comment on above: Performed By: #### P OCGLUC #### [facility] [address] [address] [address] David Magana LDL CALC NORMAL SEE BELOW Normal [facility] Comment on above: Result Comment: <100 mg/dl OPTIMAL 100 - 129 mg/dl NEAR OR ABOVE OPTIMAL 130 - 159 mg/dl BORDERLINE HIGH 160 - 189 mg/dl HIGH >190 mg/dl VERY HIGH Performed By: #### P OCGLUC #### [facility] [address] [address] [address] David Magana Triglyceride [Mass/Vol] 235 mg/dL Critically high <=150 [facility] Comment on above: Performed By: #### P OCGLUC #### [facility] [address] [place] [address] Dr. David Magana VLDL CALC 47.0 mg/dL Normal [facility] Comment on above: Performed By: #### P OCGLUC #### [facility] [address] [place] [address] Dr. David Magana PROF 14(COMP METB)on 022 Albumin [Mass/Vol] 3.2 g/dL Critically low 3.4-5.0 [facility] Comment on above: Performed By: #### P OCGLUC #### [facility] [address] [place] [address] Dr. David Magana Albumin/Globulin [Mass ratio] 0.9 {ratio} Normal [facility] Comment on above: Performed By: #### P OCGLUC #### [facility] [address] [place] [address] Dr. David Magana ALP [Catalytic activity/Vol] 77 U/L Normal 46-116 [facility] Comment on above: Performed By: #### P OCGLUC #### [facility] [address] [place] [address] Dr. David Magana ALT [Catalytic activity/Vol] 24 U/L Normal 16-63 [facility] Comment on above: Performed By: #### P OCGLUC #### [facility] [address] [place] [address] Dr. David Magana Anion gap [Moles/Vol] 13.1 mmol/L Normal [facility] Comment on above: Performed By: #### P OCGLUC #### [facility] [address] [address] [address] David Magana AST [Catalytic activity/Vol] 13 U/L Critically low 15-37 [facility] Comment on above: Performed By: #### P OCGLUC #### [facility] [address] [address] [address] David Magana Bilirubin [Mass/Vol] 0.3 mg/dL Normal 0.2-1.0 [facility] Comment on above: Performed By: #### P OCGLUC #### [facility] [address] [address] [address] David Magana Calcium [Mass/Vol] 8.8 mg/dL Normal 8.5-10.1 [facility] Comment on above: Performed By: #### P OCGLUC #### [facility] [address] [address] [address] David Magana Chloride [Moles/Vol] 106 mmol/L Normal 98-107 [facility] Comment on above: Performed By: #### P OCGLUC #### [facility] [address] [place] [address] Dr. David Magana CO2 [Moles/Vol] 27.5 mmol/L Normal 21.0-32.0 [facility] Comment on above: Performed By: #### P OCGLUC #### [facility] [address] [place] [address] Dr. David Magana Creatinine [Mass/Vol] 1.62 mg/dL Critically high 0.70-1.30 [facility] Comment on above: Performed By: #### P OCGLUC #### [facility] [address] [place] [address] Dr. David Magana EGFR-AF BARBADIAN 50 mL/min/1.73m2 Critically low >=60 [facility] Comment on above: Performed By: #### P OCGLUC #### [facility] [address] [place] [address] Dr. David Magana EGFR-NON AF BAR[place] 41 mL/min/1.73m2 Critically low >=60 [facility] Comment on above: Performed By: #### P OCGLUC #### [facility] [address] [address] [address] David Magana Globulin (S) [Mass/Vol] 3.4 g/dL Normal [facility] Comment on above: Performed By: #### P OCGLUC #### [facility] [address] [address] [address] David Magana Glucose [Mass/Vol] 206 mg/dL Critically high 74-106 [facility] Comment on above: Performed By: #### P OCGLUC #### [facility] [address] [address] [address] David Magana Potassium [Moles/Vol] 4.6 mmol/L Normal 3.5-5.1 [facility] Comment on above: Performed By: #### P OCGLUC #### [facility] [address] [address] [address] David Magana Protein [Mass/Vol] 6.6 g/dL Normal 6.4-8.2 [facility] Comment on above: Performed By: #### P OCGLUC #### [facility] [address] [place] [address] Dr. David Magana Sodium [Moles/Vol] 142 mmol/L Normal 136-145 [facility] Comment on above: Performed By: #### P OCGLUC #### [facility] [address] [place] [address] Dr. David Magana Urea nitrogen [Mass/Vol] 26.0 mg/dL Critically high 7.0-18.0 [facility] Comment on above: Performed By: #### P OCGLUC #### [facility] [address] [place] [address] Dr. David Magana Urea nitrogen/Creatinine [Mass ratio] 16.0 mg/mg Normal [facility] Comment on above: Performed By: #### P OCGLUC #### [facility] [address] [address] [address] David Magana T4on 04-28-2022 T4 [Mass/Vol] 7.70 ug/dL Normal 4.50-12.10 [facility] Comment on above: Performed By: #### P OCGLUC #### [facility] [address] [address] [address] David Magana TSHon 04-28-2022 TSH 2.187 uIU/mL Normal 0.358-3.740 [facility] Comment on above: Performed By: #### P OCGLUC #### [facility] [address] [address] [address] David Magana TSH RANGE SEE BELOW Normal [facility] Comment on above: Result Comment: <0.3 4 UIU/ml HYPERTHYROID 0.34-5.60 UIU/ml EUTHYROID >5.60 UIU/ml HYPOTHYROID Performed By: #### P OCGLUC #### [facility] [address] [place] [address] Dr. David Magana Vital Signs Date Time Vital Sign Value Performing Clinician Facility 10-14-2023 14:33-0500 Diastolic blood pressure 70 mm[Hg] Nereyda Gomez [facility] 10-14-2023 14:33-0500 Mean blood pressure 93 mm[Hg] Nereyda Joyametz [facility] 10-14-2023 14:33-0500 Systolic blood pressure 138 mm[Hg] Nereyda Joyametz [facility] 10-14-2023 14:18-0500 Blood Pressure Location Nereydabruce JoyaPatricia [facility] 10-14-2023 14:18-0500 Body temperature 97.88 [degF] Nereyda Joyametz [facility] 10-14-2023 14:18-0500 Diastolic blood pressure 73 mm[Hg] Nereyda Joyametz [facility] 10-14-2023 14:18-0500 Heart rate 91 /min Nereyda Patricia [facility] 10-14-2023 14:18-0500 Systolic blood pressure 143 mm[Hg] Nereyda Patricia [facility] 10-01-2023 12:13-0500 Diastolic blood pressure 66 mm[Hg] Nereyda Patricia [facility] 10-01-2023 12:13-0500 Mean blood pressure 104 mm[Hg] Nereyda Patricia [facility] 10-01-2023 12:13-0500 Systolic blood pressure 179 mm[Hg] Nereyda Patricia [facility] 10-01-2023 12:10-0500 Blood Pressure Location Nereyda Patricia [facility] 10-01-2023 12:10-0500 Body temperature 98.42 [degF] Nereyda Patricia [facility] 10-01-2023 12:10-0500 Diastolic blood pressure 77 mm[Hg] Nereyda Patricia [facility] 10-01-2023 12:10-0500 Heart rate 81 /min Nereyda Patricia [facility] 10-01-2023 12:10-0500 Respiratory rate 14 /min Nereyda Patricia [facility] 10-01-2023 12:10-0500 Systolic blood pressure 168 mm[Hg] Nereyda Patricia [facility] 06-10-2023 10:43-0400 Diastolic blood pressure 64 mm[Hg] Nereyda Patricia [facility] 06-10-2023 10:43-0400 Heart rate 76 /min Nereyda Patricia [facility] 06-10-2023 10:43-0400 Respiratory rate 16 /min Nereyda Patricia [facility] 06-10-2023 10:43-0400 SaO2% (BldA) [Mass fraction] 95 % Nereyda Patricia [facility] 06-10-2023 10:43-0400 Systolic blood pressure 121 mm[Hg] Nereyda Patricia [facility] 04-13-2023 14:19-0400 Diastolic blood pressure 70 mm[Hg] Nereyda Patricia [facility] 04-13-2023 14:19-0400 Mean blood pressure 95 mm[Hg] Nereyda Patricia [facility] 04-13-2023 14:19-0400 Systolic blood pressure 146 mm[Hg] Nereyda Patricia [facility] 04-13-2023 14:15-0400 Blood Pressure Location Nereyda Patricia [facility] 04-13-2023 14:15-0400 Body temperature 97.7 [degF] Nereyda Patricia [facility] 04-13-2023 14:15-0400 Diastolic blood pressure 87 mm[Hg] Nereyda Patricia [facility] 04-13-2023 14:15-0400 Heart rate 70 /min Nereyda Patricia [facility] 04-13-2023 14:15-0400 Systolic blood pressure 150 mm[Hg] Nereyda Patricia [facility] 06-09-2022 10:02-0400 Body temperature 96.98 [degF] Nereyda Gomez [facility] 06-09-2022 10:02-0400 Diastolic blood pressure 75 mm[Hg] Nereyda Donatoz [facility] 06-09-2022 10:02-0400 Heart rate 72 /min Nereyda Gomez [facility] 06-09-2022 10:02-0400 SaO2% (BldA) [Mass fraction] 97 % Nereyda Gomez [facility] 06-09-2022 10:02-0400 Systolic blood pressure 139 mm[Hg] Nereyda Gomez [facility] 05-11-2022 11:30-0400 Diastolic blood pressure 102 mm[Hg] Bender SALAM [facility] 05-11-2022 11:30-0400 Heart rate 86 /min Bender SALAM [facility] 05-11-2022 11:30-0400 Respiratory rate 15 /min Bender SALAM [facility] 05-11-2022 11:30-0400 SaO2% (BldA) [Mass fraction] 95 % Bender SALAM [facility] 05-11-2022 11:30-0400 Systolic blood pressure 172 mm[Hg] Bender SALAM [facility] 05-11-2022 11:15-0400 Diastolic blood pressure 88 mm[Hg] Bender SALAM [facility] 05-11-2022 11:15-0400 Heart rate 86 /min Bender SALAM [facility] 05-11-2022 11:15-0400 Respiratory rate 18 /min Bender SALAM [facility] 05-11-2022 11:15-0400 SaO2% (BldA) [Mass fraction] 97 % Bender SALAM [facility] 05-11-2022 11:15-0400 Systolic blood pressure 170 mm[Hg] Bender SALAM [facility] 05-11-2022 11:10-0400 Diastolic blood pressure 108 mm[Hg] Bender SALAM [facility] 05-11-2022 11:10-0400 Heart rate 85 /min Bender SALAM [facility] 05-11-2022 11:10-0400 Respiratory rate 14 /min Bender SALAM [facility] 05-11-2022 11:10-0400 SaO2% (BldA) [Mass fraction] 97 % Bender SALAM [facility] 05-11-2022 11:10-0400 Systolic blood pressure 157 mm[Hg] Bender SALAM [facility] 05-11-2022 11:02-0400 Body temperature 97.34 [degF] Bender SALAM [facility] 05-11-2022 10:27-0400 Blood Pressure Location Bender SALAM [facility] 05-11-2022 10:23-0400 Blood Pressure Location Napoleon MENDEZ [facility] 05-11-2022 10:23-0400 Body temperature 98.24 [degF] Napoleon MENDEZ [facility] 03-31-2022 09:53-0400 Blood Pressure Location Nereyda Gomez [facility] 03-31-2022 09:53-0400 Body temperature 97.7 [degF] Nereyda Gomez [facility] 03-31-2022 09:53-0400 Diastolic blood pressure 72 mm[Hg] Nereyda Donatoz [facility] 03-31-2022 09:53-0400 Heart rate 73 /min Nereyda Gomez [facility] 03-31-2022 09:53-0400 SaO2% (BldA) [Mass fraction] 96 % Nereyda Gomez [facility] 03-31-2022 09:53-0400 Systolic blood pressure 129 mm[Hg] Nereyda Gomez [facility] Encounters Encounter Date Encounter Type Care Provider Facility Start: 03-03-2024 End: 03-03-2024 ambulatory [facility] Start: 02-10-2024 End: 02-10-2024 ambulatory ROBINSON CHICAS Not Available Start: 02-02-2024 ambulatory Nereyda Cabrera ty:[facility] Start: 01-11-2024 End: 01-11-2024 ambulatory BARRIE FLANNERYBubba Not Available Start: 12-09-2023 [facility] Start: 12-02-2023 End: 12-02-2023 ambulatory ROBINSON CHICAS Not Available Start: 11-17-2023 End: 11-17-2023 ambulatory DANA [facility] Start: 10-14-2023 End: 10-15-2023 ambulatory Nereyda Cara Patricia Facility:[facility] Start: 10-14-2023 End: 10-14-2023 Patient encounter procedure Nereyda A Patricia [facility] Start: 10-01-2023 End: 10-02-2023 ambulatory Nereyda Cara Patricia Facility:[facility] Start: 10-01-2023 End: 10-02-2023 ambulatory Nereyda A Patricia Facility:[facility] Start: 10-01-2023 End: 10-01-2023 Patient encounter procedure Nereyda A Patricia [facility] Start: 10-01-2023 End: 10-01-2023 Patient encounter procedure Nereyda Joyametz [facility] Start: 09-17-2023 End: 09-17-2023 ambulatory [facility] Start: 09-13-2023 End: 09-14-2023 ambulatory Nereyda A Patricia Facility[facility] Start: 09-13-2023 End: 09-13-2023 Patient encounter procedure Nereyda A Patricia [facility] Start: 08-31-2023 End: 09-01-2023 ambulatory [facility] Start: 07-21-2023 End: 07-21-2023 ambulatory [facility] Start: 06-14-2023 End: 06-14-2023 ambulatory RYDER SCHUYLER [facility] Start: 06-10-2023 End: 06-11-2023 ambulatory Nereyda Gomez Facility:[facility] Start: 06-10-2023 End: 06-10-2023 Patient encounter procedure Nereyda Gomez [facility] Start: 05-24-2023 End: 05-24-2023 ambulatory [facility] Start: 04-15-2023 End: 04-16-2023 ambulatory Nereyda Gomez Facility:[facility] Start: 04-15-2023 End: 04-15-2023 Lab Drop off Nereyda Gomez [facility] Start: 04-13-2023 End: 04-14-2023 ambulatory Nereyda Gomez Facility:[facility] Start: 04-13-2023 End: 04-13-2023 Patient encounter procedure Nereyda Gomez [facility] Start: 04-07-2023 End: 04-07-2023 ambulatory RUTHIE LINDA [facility] Start: 03-24-2023 End: 03-25-[address] RUTHIE LINDA Facility:[facility] Start: 03-08-2023 ambulatory Francisco FRYE Facility :[facility] Start: 02-27-2023 End: 02-28-[address] VAN SUNG . Facility:[facility] Start: 12-28-2022 End: 12-29-[address] RUTHIE [...] End: 06-09-2022 Patient encounter procedure Nereyda Gomez [facility] Start: 06-08-2022 End: 06-09-2022 ambulatory GAMALIEL DALEY Facility:[facility] Start: 05-11-2022 End: 05-11-2022 Patient encounter procedure Napoleon MENDEZ [facility] Start: 04-28-2022 End: 04-29-[address] VAN SUNG . Facility:[facility] Start: 03-31-2022 End: 03-31-2022 Patient encounter procedure Nereyda Gomez [facility] Start: 2019 End: 02-07-2019 Patient encounter procedure DEFAULT PHYSICIAN Facility:[facility] Procedures Date Procedure Procedure Detail Performing Clinician Start: 05-11-2022 Colonoscopy Napoleon Fernandez Comment on above: 2 polyps, diveticulo sis, IH Start: 01-11-2017 Cardioversion Nereyda Modi nmetz Back structure, excl uding neck (body structure) Nereyda Gomez Cholecystectomy Nereyda mcdonough Colonoscopy Nereyda Gomez History of hernia repair Ave Gomez Tonsillectomy Nereyda Gomez Immunizations Immunization Date Immunization Notes Care Provider Fa cility 10-21-2022 SARS-CoV-2 (COVID-19 ) [id number] Nereyda Gomez [facility] Comment on above: Result Comment: 2022: [id number] 08-26-2021 SARS-CoV-2 (COVID-19 ) mRNA BNT-162b2 vax Nereyda Joyametz [facility] 01-01-2021 SARS-CoV-2 (COVID-19 ) mRNA BNT-162b2 vax Nereydabruce JoyaPatricia [facility] 12-09-2020 SARS-CoV-2 (COVID-19 ) mRNA BNT-162b2 vax Nereyda Joyametz [facility] 08-27-2020 influenza virus vaccine, unspecified formulation Nereyda Joyametz [facility] 08-16-2017 pneumococcal conjugate vaccine, 13 valent Nereyda Joyametz [facility] 08-05-2017 influenza, unspecified formulation Nereydabruce JoyaPatricia [facility] 09-20-2015 zoster vaccine, [facility] NEGATED: Highlighted row has not occurred!10-13-2023 influenza virus vaccine, unspecified formulation Nereydabruce JoyaPatricia [facility] NEGATED: Highlighted row has not occurred!09-29-2023 influenza virus vaccine, unspecified formulation Nereydabruce JoyaPatricia [facility] Payers Date Payer Category Payer Unknown [id number] 1960 Medicare [id number] 1940 Unknown [id number] [id number] 1940 Unknown [id number] 2.16.84 [id number] 1940 Unknown [id number] 2.16.84 [id number] 1939 Unknown [id number] 2.16.84 [id number] 1939 Unknown [id number] 2.16.84 [id number] 1940 Unknown [id number] 2.16.84 [id number] 1939 Unknown [id number] 2.16.84 [id number] 1939 Unknown [id number] 2.16.84 [id number] 1939 Unknown [id number] 2.16.84 0.1.438240.3.579.2.593 1939 Unknown [id number] 2.16.84 0.1.633750.3.579.2.593 1939 Unknown [id number] 2.16.84 0.1.516630.3.579.2.593 1939 Unknown [id number] 2.16.84 0.1.981372.3.579.2.593 1939 Unknown [id number] 2.16.8 40.1.170868.3.579.2.727 1939 Unknown [id number] 2.16.8 40.1.817265.3.579.2.727 1939 Unknown [id number] 2.16.8 40.1.938840.3.579.2.727 1939 Unknown [id number] 2.16.8 40.1.753866.3.579.2.727 1939 Unknown [id number] 2.16.8 40.1.798281.3.579.2.727 1939 Unknown [id number] 2.16.8 40.1.395404.3.579.2.727 1939 Unknown [id number] 2.16.8 40.1.313895.3.579.2.727 1939 Unknown [id number] 2.16.8 40.1.191668.3.579.2.727 1939 Unknown [id number] 2.16.8 40.1.440219.3.579.2.727 1939 Unknown [id number] 2.16.8 40.1.792440.3.579.2.727 1939 Unknown [id number] 2.16.8 40.1.243568.3.579.2.727 1939 Unknown [id number] 2.16.84 0.1.125952.3.579.2.1259 1939 Unknown [id number] 2.16.84 0.1.148066.3.579.2.1259 1939 Unknown [id number] 2.16.84 0.1.789791.3.579.2.1259 Unknown Social History Date Type Detail Facility Start: 03-31-2022 End: 10-14-2023 Tobacco smoking status Ex-smoker (finding) [facility] Tobacco smoking status Never [facility] Sex Assigned At Male [facility] Functional Status Date Assessment Result Facility 10-14-2023 Functional Status N/A [facility] 10-01-2023 Functional Status No [facility] 04-13-2023 Functional Status N/A [facility] 06-09-2022 Functional Status N/[facility] Functional Status N/A [facility] Clinical Notes 03-31-2022 to 03-03-2024 Note Date & Type Note Facility 03-03-2024 Note [place] [facility] Subjective Nadir Heredia is a 84 y.o. year old male patient being seen [...] creatinine Loose stools History of colon polyps Congestive heart failure (CMS/HCC) Hearing loss Hyperlipidemia Hypertensive heart and chronic kidney disease with heart failure and stage 1 through stage 4 chronic kidney disease, or unspecified chronic kidney disease (CMS/HCC) Nausea Sensorineural hearing loss, bilateral Stenosis of left renal artery (CMS/HCC) Tremor Family History Problem Relation Name Age of Onset Coronary artery disease Father Social History Tobacco Use Smoking status: Former Types: Cigarettes Smokeless tobacco: Never Substance Use Topics Alcohol use: Not Currently Drug use: Never JOHN Nadir is seen in follow up. He is an 84-year-old man with paroxysmal atrial fibrillation maintained on [...] extremity edema. He was admitted to the [facility] in August 2022 due to hyponatremia, hyperkalemia and acute kidney injury, leukocytosis secondary to COVID-19 causing dehydration. I saw him on 05/24/2023 and the office and he had significant evidence of volume overload by exam and echocardiogram. I intensified his diuretic regimen. He ended up getting admitted to the [facility] with acute heart failure exacerbation and underwent [...] shortness of breath on exertion, NYHA class II-III. He also has moderate lower extremity swelling he recently increased his furosemide from 40 mg daily to 60 mg daily. He does not feel palpitations. He has no syncope. No dizziness or lightheadedness. His recent echocardiogram on 02/17/2024 showed a severely elevated right-sided pressures with an RVSP of 80 mmHg with moderate circumferential pericardial effusion and normal ventricular systolic function. Review of Systems Cardiovascular: Positive for dyspnea on exertion and leg swelling. All other systems reviewed and are negative. Objective Visit Vitals BP 110/60 (BP Location: Left arm, Patient Position: Sitting, BP Cuff Size: Adult) Pulse 74 Resp 12 Ht 1.854 m (6' 1 ) Wt 90.3 kg (199 lb) SpO2 94% BMI 26.25 kg/m??? Smoking Status Former BSA 2.16 m??? Physical Exam Constitutional: Appearance: He is [...] There is no abdominal tenderness. Musculoskeletal: General: N (more content not included)... [facility] 11-17-2023 Note Attestation signed by Ruthie Linda MD at 11/21/2023 6:55 PM I saw, interviewed, examined and evaluated the patient with Nephrology fellow, Dr. Dana Aparicio. I participated in the medical management of the patient. I reviewed the fellow's note and agree with the fellow's documentation in the note. Ruthie Linda MD Faculty, Division of Nephrology, Department of Medicine, [facility]. [facility] Patient: Nadir Heredia; 83 y.o. Visit date: 11/17/23 Reason for today's visit: Follow up for CKD stage 3, Hypertension, Edema/ Fluid overload, and Electrolytes disturbances SUBJECTIVE: BACKGROUND: Nadir Heredia is a 83 y.o. male has a past medical history of Atrial fibrillation ([facility]), CHF (congestive heart failure) ([facility]), Chronic kidney disease, COPD (chronic obstructive pulmonary disease) ([facility]), Coronary artery disease, Diabetes mellitus ([facility]), Heart valve disease, Hypertension, Pericardial effusion, and Sleep apnea. History of paroxysmal atrial fibrillation maintained on anticoagulation with Eliquis, aortic stenosis, renal artery stenosis, and hypertension. He had stenting of the left renal artery from the left radial approach on 05/01/2015 (Express SD 6 mm x 18 mm stent). He was admitted to the [facility] in August 2022 due to hyponatremia, hyperkalemia [...] place, and time (more content not included)... [facility] 10-14-2023 Hospital Discharge instructions Patient Education 10/14/2023 [...] as fried or sweet foods. These include montserratian fries, hamburgers, cookies, candies, and soda. Drink enough fluid to keep your urine pale yellow. General instructions Exercise regularly or as told by your health care provider. Try to do 150 minutes of moderate exercise each week. Use the bathroom when you have the urge to go. Do not hold it in. Take nhon-dku-pfrybvd and prescription medicines only as told by [...] to keep your urine pale yellow. Take opvc-wpv-nilmobh and prescription medicines only as told by your health care provider. This includes any fiber supplements. This information is not intended to replace advice given to you by your health care provider. Make sure you discuss any questions you have with your health care provider. Document Revised: 09/18/2020 Document Reviewed: 09/18/2020 [facility] Patient Education 2022 [employer]. Follow Up Care 10/01/2023 12:57:46 With:Nereyda Gomez CNP Address: When:1 month [facility] 10-01-2023 Hospital Discharge instructions Patient [...] Bulgur wheat. Millet. Quinoa. Bran muffins. Popcorn. Mobile wafer crackers. Meats and other proteins [place] beans, kidney beans, and mendez beans. Soybeans. [...] Cream cheese. Sour cream. Fats and oils [place]. Beverages Soft drinks. Other foods Cakes and [...] provider. Document Revised: 03/06/2021 Document Reviewed: 03/06/2021 [facility] Patient Education 2022 [employer]. Follow Up Care 09/20/2023 08:43:45 With:Nereyda Gomez CNP Address:Unknown When: Unknown [facility] 09-17-2023 Note [facility] Subjective Nadir Heredia is a 83 [...] extremity edema. He was admitted to the [facility] in August 2022 due to hyponatremia, hyperkalemia and acute kidney injury, leukocytosis secondary to COVID-19 causing dehydration. I saw him on 05/24/2023 and the office and he had significant evidence of volume overload by exam and echocardiogram. I intensified his diuretic regimen. He ended up getting admitted to the [facility] with acute heart failure exacerbation and underwent [...] Allergies Allergen Reactions Iodinated Contrast Media Nitroglycerin Ewjvysw-Rqq-Spx Reductase Inhibitors Medications Current Outpatient Medications: (more content not included)... [facility] 08-31-2023 Note Patient: Nadir lin Procedure Information Date/Time: 08/31/23 1300 Procedure: TRANSESOPHAGEAL ECHO (MARK) Location: [facility] Vascular Lab Clinical information reviewed: Allergies Meds Physical Exam Airway Mallampati: III TM distance: >3 FB Cardiovascular Rhythm: regular Rate: normal (+) murmur Dental Pulmonary Breath sounds clear to auscultation Abdominal Abdomen: soft Anesthesia Plan ASA 4 (Conscious sedation) Anesthetic plan and risks discussed with patient. Use of blood products discussed with patient who. Additional Equipment Requests [facility] 07-21-2023 Note [facility] Subjective Nadir Heredia is a 83 [...] extremity edema. He was admitted to the [facility] in August 2022 due to hyponatremia, hyperkalemia and acute kidney injury, leukocytosis secondary to COVID-19 causing dehydration. I saw him on 05/24/2023 and the office and he had significant evidence of volume overload by exam and echocardiogram. I intensified his diuretic regimen. He ended up getting admitted to the [facility] with acute heart failure exacerbation and underwent [...] Allergies Allergen Reactions Iodinated Contrast Media Nitroglycerin Uddvhvw-Abc-Kqy Reductase Inhibitors Medications Current Outpatient Medications: acyclovir [...] every day by (more content not included)... [facility] 06-14-2023 Note BMP script sent [facility] 06-14-2023 Note Coronary artery dise ase is stable Continue GDMT- ASA, labetalol, zetia continue risk factor modifications- heart healthy diet, regular exercise as tolerated and continue all medications. [facility] 06-14-2023 Note stable [facility] 06-14-2023 Note Recent echo 05/2023 w ith noted mod AO stenosis [facility] 06-14-2023 Note [facility] CARDIOLOGY PROGR ESS NOTE HPI: Nadir Heredia is a 83 y.o. male here for hospital f/U after admit to [facility] for resp failure, and acute heart failure exacerbation. Recent admit to [facility] for shortness of breath, acute HFpEF [...] Allergies Allergen Reactions Iodinated Contrast Media Nitroglycerin Saforok-Ggy-Kxj Reductase Inhibitors Medications: Current Outpatient Medications on [...] Troponin levels negative BNP 05/31/23- 3311, 06/01/23- 7987 Last lab values have been reviewed CV Testing: CXR 05/31/23 Pulmonary vascular congestion Mild lt basilar infiltrate 05/19/23 Echo No echocardiogram results found for the past 12 months Assessment/Plan: Acute on chronic diastolic heart failure (CMS/HCC) Recent admit to [facility] for shortness of breath, acute HFpEF with ARTUR. BNP 3311, BUN 26, CR 1.5-1.9, LFT normal, K+ normal. Troponin level negative. CXR showed vascular congestion Pt was admitted and diuresed as inpt. [facility] Continue GDMT- remains on jardiance and lasix 60 mg daily for diuresis Monitor daily weights, I&O, fluid restriction 1.5 (more content not included)... [facility] 06-14-2023 Note Patient here for [facility] for CHF. Dr. Sung gave him a few days of spironolactone to help with SOB. This did not help so he went to [facility] ED. He was diuresed with IV lasix. Says his breathing and LE edema are much better. Denies chest pain, lightheadedness, palpitations, and bleeding on Eliquis. Review of Systems Cardiovascular: Positive for dyspnea on exertion (improving) and leg swelling (improving). Hematologic/Lymphatic: Bruises/bleeds easily. Neurological: Positive for loss of balance. All other systems reviewed and are negative. [facility] 06-14-2023 Note Recent admit to [facility] for shortness of breath, acute HFpEF with ARTUR. BNP 3311, BUN 26, CR 1.5-1.9, LFT normal, K+ normal. Troponin level negative. CXR showed vascular congestion Pt was admitted and diuresed as inpt. [facility] Continue GDMT- remains on jardiance and lasix 60 mg daily for diuresis Monitor daily weights, I&O, fluid restriction 1.5-2L/day, renal function and electrolytes- Script for BMP and CBC provided pt is also seeing PCP today [facility] 06-10-2023 Hospital Discharge instructions Patient Education 06/10/2023 [...] hard liquor (44 mL). General instructions Take yreu-rcy-xaizcub and prescription medicines only as told by [...] provider. Document Revised: 02/19/2021 Document Reviewed: 02/19/2021 [employer] Patient Education 2022 [employer]. Follow Up Care 04/13/2023 14:39:27 With:Nereyda Gomez CNP Address: When:3 months [facility] 05-24-2023 Note [facility] Subjective Nadir Heredia is a 83 [...] extremity edema. He was admitted to the [facility] in August 2022 due to hyponatremia, hyperkalemia [...] Allergies Allergen Reactions Iodinated Contrast Media Nitroglycerin Yxdiuee-Czh-Khf Reductase Inhibitors Medications Current Outpatient Medications: acyclovir [...] , Rfl: ergocalciferol (Vitamin D-2) 1.25 MG (09179 Units) capsule, Take 1 capsule (50,000 Units) by mouth 1 (one) time per week., Disp: 8 capsule, Rfl: 0 ezetimibe (Zetia) 10 (more content not included)... [facility] 04-13-2023 Hospital Discharge instructions Patient Education 04/13/2023 [...] including vitamins, herbs, eye drops, creams, and npqa-dfg-hefotqt medicines. Any problems you or family members [...] provider tells you to take them. Taking obae-kpn-jddodsf medicines, vitamins, herbs, and supplements. General instructions [...] provider. Document Revised: 10/26/2022 Document Reviewed: 06/24/2022 [employer] Patient Education 2022 [employer]. Follow Up Care 04/09/2023 11:27:16 With:Patricia BRITT Nereyda Cara Address: When:1 month [facility] 04-13-2023 Note Radiology Colonoscopy, Adult [...] including vitamins, herbs, eye drops, creams, and xgxb-gpj-erpxwwv medicines. ? Any problems you or family [...] tells you to take them. ? Taking kqlj-cwy-szlhdyn medicines, vitamins, herbs, and supplements. General instructions [...] for cancer cells. (more content not included)... [facility] 04-07-2023 Note Nephrology Clinic Patient: Nadir Heredia; 83 y.o. Visit date: 04/07/23 Reason for today's visit: Follow up for CKD stage 3, Hypertension, and Edema/ Fluid overload SUBJECTIVE: History Of Present Illness: HISTORICAL: 10/23/2015: Here for FU from the hospital. He was first admitted to [facility] with weight gain and so he was [...] back & is being treated by a qualifications examiner. He reports feeling short of breath on [...] is 83 year (more content not included)... [facility] 07-18-2022 Note EXAM: US CHANI DOP LEG [...] authenticated by: LI ROBERTS Date: 2022-07-18 09:05 [facility] 06-09-2022 Hospital Discharge instructions Patient Education [...] per serving. Talk with a diet and child nutrition assistant (dietitian) if you have questions about specific [...] Bulgur wheat. Millet. Quinoa. Bran muffins. Popcorn. Mobile wafer crackers. Meats and other proteins [place], kidney, and mendez beans. Soybeans. Split peas. [...] Cream cheese. Sour cream. Fats and oils [place]. Beverages Soft drinks. Other foods Cakes and [...] 11/01/2006 Document Revised: 09/05/2018 Document Reviewed: 09/05/2018 [facility] Patient Education 2020 [employer]. 06/09/2022 10:13:34 Hemorrhoids Hemorrhoids Hemorrhoids are swollen [...] 3 times a day. General instructions Take czya-stj-bllrzgl and prescription medicines only as told by [...] 10/29/2001 Document Revised: 03/29/2020 Document Reviewed: 03/23/2019 [employer] Patient Education 2020 [employer] 06/09/2022 10:13:31 Diverticulosis Diverticulosis Diverticulosis is a [...] overweight. Not getting enough exercise. Smoking. Taking sijn-ixs-vmocumm pain medicines, like aspirin and ibuprofen. Having [...] health care provider or your diet and child nutrition assistant (dietitian). ?Take a fiber supplement or probiotic, if your health care provider approves. Take sdvr-lhp-imgzphm and prescription medicines only as told by [...] 07/29/2005 Document Revised: 10/14/2018 Document Reviewed: 09/20/2017 [facility] Patient Education 2020 [employer]. 06/09/2022 10:13:30 Colon Polyps Colon Polyps Polyps [...] 07/28/2005 Document Revised: 02/16/2019 Document Reviewed: 02/16/2019 [facility] Patient Education 2019 [employer]. Follow Up Care 05/13/2022 14:18:17 With:Nereyda Gomez CNP Address: When:1 year only if needed [facility] 05-11-2022 Evaluation + Plan note Extrac fernando from: Title:Anesthesia post op endo Author:Jeffrey Gr MD Date:05/11/22 Plan Transfer/ Discharge: Patient can be discharged from PACU when criteria met. Condition good. Extracted from: Title:Anesthesia Pre-Op endo 2 Author:Jeffrey Gr MD Date:05/11/22 Plan [place] [employer] Anesthesiologists (ASA) physical status classification: [...] heart and lungs, allergic reactions, and .. [facility]06-27-2022 Hospital Discharge instructions Patient Education 05/11/2022 11:13:39 Colonoscopy, Care After Surgery Salam (CUSTOM) Colonoscopy Care After Surgery Please read the instructions outlined below and refer to this sheet in the next few weeks. These discharge instructions provide you with general information on caring [facility] Your doctor may also give you specific [...] 07/28/2005 Document Revised: 02/16/2019 Document Reviewed: 02/16/2019 [facility] Patient Education 2020 [employer]. 05/11/2022 11:13:39 Diverticulosis MAGR (CUSTOM) Diverticulosis Many [...] unsweetened, w/added ascorbic acid 1 cup 0.5 [place] 1 cup 0.7 Vegetables Cooked Green beans 1 cup 4.0 Carrots 1/2 cup sliced 2.3 Peas 1 cup 8.8 Potato (baked, with skin) 1 medium potato 3.8 Raw [place] (with peel) 1 cucumber 1.5 Lettuce 1 [...] 8.7 Peanuts 1/2 cup 7.9 Chart from [facility] 2013. SEEK IMMEDIATE MEDICAL CARE IF: You [...] Reference. Available at http://www.nal.usda.gov/fnic/foodcomp/search/. Information adapted from: [facility] [place] Patient Information 2009 [employer] [facility]. [facility] 2013 http://www.U-Subs Deli.Outright/contents/kczdxdjegkya-pnuncni-rtiddj-the-basics Follow Up Care 03/31/2022 10:27:32 With:Napoleon MENDEZ Address: [address] [place] [address] Business (1) When: Unknown Comments:office will call for follow up [facility]05-17-2022 Hospital Discharge instructions Patient Education 03/31/2022 09:58:01 [...] including vitamins, herbs, eye drops, creams, and bete-iaq-uyzzkbt medicines. Any problems you or family members [...] anything starting 2 hours before the procedure, orwithin the time period that your health care [...] 10/29/2001 Document Revised: 08/24/2018 Document Reviewed: 01/12/2017 Y[facility] Patient Education 2020 [employer]. Follow Up Care 03/23/2022 12:11:50 With:Nereyda Gomez CNP Address: When:1 month [facility] Evaluation + Plan note Future Appointments Appointment Date:05/25/2022 08:45:00 AM Scheduled Provider: Location:[facility] Appointment Type:[facility] Evaluation + Plan note Future Appointments Appointment Date:06/10/2023 10:40:00 AM Scheduled Provider:Nereyda Gomez CNP Location:[facility] Appointment Type:[facility] Follow Up Future Scheduled Tests Laboratory* Fecal WBC Lactoferrin 04/13/23 * Giardia lamblia, Direct Detection EIA 04/13/23 * O & P Exam, Routine 04/13/23 * Clostridium Difficile PCR 04/13/23 * Enteric Panel by PCR 04/13/23 [facility] Evaluation + Plan note Future Appointments Appointment Date:06/10/2023 10:40:00 AM Scheduled Provider:Nereyda Gomez CNP Location:[facility] Appointment Type:[facility] Follow Up Diagnostic Tests Pending * O & P Exam, Routine 04/15/23 * Giardia lamblia, Direct Detection EIA [facility] Appointment Date:09/13/2023 10:40:00 AM Scheduled Provider:Nereyda Gomez CNP Location:[facility] Appointment Type:[facility] Follow Up [facility] Evaluation + Plan note Future Appointments Appointment Date:10/14/2023 02:20:00 PM Scheduled Provider:Nereyda Gomez CNP Location:[facility] Appointment Type:[facility] Follow Up Future Scheduled Tests Laboratory* CBC w/ Auto Diff 10/01/23 * Comprehensive Metabolic Panel 10/01/23 * Thyroid Stimulating Hormone 10/01/23 [facility] Evaluation + Plan note Future Appointments Appointment Date:12/09/2023 02:00:00 PM Scheduled Provider:Nereyda Gomez CNP Location:[facility] Appointment Type:[facility] Follow Up Future Scheduled Tests Laboratory* CBC w/ Auto Diff 10/01/23 * Comprehensive Metabolic Panel 10/01/23 * Thyroid Stimulating Hormone 10/01/23 [facility] Hospital course Narrative No data available for this section [facility] Hospital Discharge instructions No data available for this section [facility] No data available for this section [facility] Summary Purpose Family History No Family History [...] section and content) DATE CREATED AUTHOR 02/09/2019 [facility] DATE CREATED AUTHOR AUTHOR'S ORGANIZ ATION 03/28/2023 [facility] pital DATE CREATED AUTHOR AUTHOR'S ORGANIZ ATION 01/24/2024 [facility] DATE CREATED AUTHOR AUTHOR'S ORGANIZ ATION 02/11/2024 [facility] EPIC DATE CREATED AUTHOR AUTHOR'S ORGANIZ ATION 03/04/2024 [facility] Care Team (unrecognized sect ion and content) Personnel Name: Van Sung MD Address: [address] [place] [address] Personnel Name: Van Sung MD Address: [address] [place] [address] Personnel Name: Van Sung MD Address: Address: [address] [place] [address] Personnel Name: Van Sung MD Address: Address: [address] [place] [address] Personnel Name: Van Sung MD Address: Address: [address] [place] [address] Personnel Name: Van Sung MD Address: Address: [address] [place] [address] Personnel Name: Van Sung MD Address: Address: [address] [place] [address] Personnel Name: Van Sung MD Address: Address: [address] [place] [address] Personnel Name: Van Sung MD Address: Address: [address] [place] [address] Personnel Name: Van Sung MD Address: Address: [address] [place] [address] FOR RECORDS PERTAINING TO PATIENTS WHO ARE [...] BE BASED ON THE PRIMARY CLINICAL RECORDS. [facility] [employer] [facility]. provides no warranty or guarantee of the accuracy or completeness of information in this document.
[2024-03-13 08:08] LABS: Anion Gap 13.8; BUN Creatinine Ratio 16.9; Calcium 9.1 mg/dL (8.5-10.1); Carbon Dioxide 28.2 mmol/L (21.0-32.0); Chloride 103 mmol/L (98-107); Estimated GFR (African America 50 (>=60); Estimated GFR (Non-African Ame 41 (>=60); Glucose 195 mg/dL (74-106); Sodium 141 mmol/L (136-145)
== END 2024-03-13 07:27 | disposition home or self-care (01) ==
LOC: LAB 07:27
PROVIDERS: PCP Family Medicine; Visit Provider Internal Medicine Interventional Cardiology
DX: I50.32 Chronic diastolic (congestive) heart failure (principal); I27.20 Pulmonary hypertension, unspecified
CPT/HCPCS: 36415; 80048; 93306

== ENCOUNTER 2024-03-17 09:42 | Outpatient (OUT) | payer MEDICARE, SELFPAY ==
--- OUTSIDE RECORDS SUMMARY | 2024-03-17 09:59 | XMS_ITS | CCD ---
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 Care Editor Greeting Card Name Role Phone PHYSICIAN, DEFAULT Admitting Unavailable PHYSICIAN, DEFAULT Attending Unavailable VAN SUNG Primary Care Unavailable Van Sung Primary Care Physician JANETY ., DR ARAUJO Primary Care Unavailable HOY ., DR ARAUJO Consulting Unavailable HOY ., DR ARAUJO Attending Unavailable HOY ., DR ARAUJO Admitting Unavailable ZIEBER, DR CLOVER Zimmer Consulting Unavailable [place], DR CRAMER Consulting Unavailable HOY ., DR ARAUJO Primary Care Unavailable [place], DR CRAMER Attending Unavailable [place], DR CRAMER Admitting Unavailable [place], DR CRAMER Consulting Unavailable HOY ., DR ARAUJO Primary Care Unavailable [place], DR CRAMER Attending Unavailable [place], DR CRAMER Admitting Unavailable HOY ., DR ARAUJO Consulting Unavailable HOY ., DR ARAUJO Primary Care Unavailable HOY ., DR ARAUJO Attending Unavailable HOY ., DR ARAUJO Admitting Unavailable [place], DR CRAMER Consulting Unavailable HOY ., DR ARAUJO Primary Care Unavailable [place], DR CRAMER Attending Unavailable [place], DR CRAMER Admitting Unavailable HOY ., DR [...] Unavailable ROBINSON CHICAS Attending Unavailable [place], RUTHIE Attending Unavailable MOUKARBEL, CLARIBEL Attending Unavailable SCHUYLERRYDER Attending Unavailable MOUKARBEL, CLARIBEL Attending Unavailable MOUKARBEL, CLARIBEL Attending Unavailable MOUKARBEL, CLARIBEL Attending Unavailable DANA APARICIO Attending Unavailable MOUKAGIANNI, CLARIBEL Referring Unavailable Allergies Allergy Classification Reported Allergen(s) Allergy Type Date of Onset Reaction(s) Facility (14 sources) Aminolevulinic Acid; 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: [aminolevulinic acid] Drug Allergy 11-04-20 13 Unknown [facility] Repository (1 source) NITRO PATCH; 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: [NITRO PATCH] Propensity to adverse reactions (disorder) 03-18-20 12 [facility] Repository (12 sources) Contrast media; 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: [Contrast Dye] Drug allergy Unknown (qualifier value) [facility] (12 sources) Hmg-Coa Reductase Inhibitors (Statins); 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: [statins] Allergy to substance Unknown [facility] (20 sources) Nitroglycerin; 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: [nitroglycerin] Drug Allergy 02-23-20 Unknown (qualifier value) [facility] (2 sources) black walnut pollen extract; 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: [MKORGGO-OEG-KRB REDUCTASE INHIBITORS] Drug Allergy 04-21-20 17 [facility] Repository (1 source) Iodine (And Iodine Containting Drugs) Drug allergy (disorder) 05-28-20 16 [facility] Repository (1 source) Aminolevulinic Acid; 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: [aminolevulinic acid] Drug Allergy 11-04-20 13 [facility] Repository (1 source) Nitroglycerin; 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: [Nitroglycerin Patch] Drug Allergy [facility] Repository (1 source) IODINATED CONTRAST MEDIA; 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: [IODINATED CONTRAST MEDIA] Propensity to adverse reactions to drug (disorder) 07-17-20 [facility] Repository Medications Current Medications Medication Drug Class(es) [...] day(s), # 90 cap(s), Refills(s) 0, Pharmacy: [facility]/pharmacy #[id number], 185, cm, 06/10/23 10:45:00 EDT, Height/Length Dosing, 97, kg, 06/10/23 10:45:00 EDT, Weight Dosing Start Date: 06/10/23 Stop Date: 09/08/23 Status: Ordered Start: 08-28-2020 take 1 capsule by mo uth once daily Align 4 mg oral capsule 4 mg = 1 cap(s), Oral, Daily, Take after completing the Antibiotics course, # 28 cap(s), Refills(s) 0, [id number] 185, cm, 08/28/20 12:05:00 EDT, Height/Length [...] Daily Prior to colonoscopy Per physician's instructions, [facility]/pharmacy #[id number], 185, cm, 03/31/22 9:58:00 EDT, Height/Length [...] Date: 01/09/19 Status: Ordered 60 actuat tiotropium 0.41565 mg/actuat inhalation spray (10 sources) Anticholinergic Start: [...] water, # 160 cap(s), Refills(s) 1, Pharmacy: [facility]/pharmacy #[id number], 185, cm, 08/28/20 12:05:00 EDT, Height/Length [...] disease (2 sources) Atherosclerotic heart disease of [place] coronary artery without angina pectoris; 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: [Atherosclerotic heart disease of [place] coronary artery without angina pectoris] Onset: 07-17-2022 [...] Onset: 04-30-2022 Episodic Other aftercare (1 source) snf (current) use of aspirin; 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: [FCI CURRENT USE OF ASPIRIN] Onset: 08-27-2022 Episodic Other aftercare (1 source) snf (current) use of anticoagulants; 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: [FCI CURRNT USE ANTICOAGULANTS] Onset: 08-27-2022 Episodic Other aftercare (1 source) Other director long term care (current) drug therapy; 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: [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 CURRENT DRUG THERAPY] Onset: 08-27-2022 Episodic Other [...] Range Facility Office Visiton 03-03-2024 Follow-up visit [id number] Nadir Heredia 1940 M Date Provider Department Center 03/03/2024 CLARIBEL VILLALOBOS [facility] Family History Problem Relation Age of Onset Coronary artery disease Father Family Status - Relation Status Age at Father Level of Service:83187 [place] OFFICE/OUTPATIENT ESTABLISHED MOD MDM 30 MIN Reason for Visit and Comments: Follow-up [932841] [facility] 36on 12-29-2023 36 Called and spoke with patient and rescheduled patients appointment from 05/31 to 06/07. [facility] 36on 12-28-2023 36 Called patient lvm to contact the office back to reschedule appointment. [facility] Follow-Upon 11-17-2023 Follow-Up [id number] Nadir Heredia 1940 M Date Provider Department Center 11/17/2023 RUTHIE OWEN [facility] NEPHRO Comprehensiv Family History Problem Relation Age of Onset Coronary artery disease Father Family Status - Relation Status Age at Father Level of Service:70743 LA OFFICE/OUTPATIENT ESTABLISHED MOD MDM 30 MIN () Reason for Visit and Comments: Follow-up [912673] Chronic Kidney Disease [176] [facility] Lab Reportson 10-21-2023 Lab Reports [id number] #1.00TIFF [facility] Gastroenterology Office/Clin ic Noteon 10-18-2023 Gastroenterology Office/Clinic [...] fiber supplem (more content not included)... Normal [facility] Comment on above: Result Comment: Elec tronically [...] PM EST With: Nereyda Gomez CNP Where: [facility] Normal [facility] Patient Educationon 10-14-20 23 Patient Education Gastroenterology [...] as fried or sweet foods. These include niuean fries, hamburgers, cookies, candies, and soda. ? Drink enough fluid to keep your urine pale yellow. General instructions ? Exercise regularly or as told by your health care provider. Try to do 150 minutes of moderate exercise each week. ? Use the bathroom when you have the urge to go. Do not hold it in. ? Take ulqi-myf-lepugoq and prescription medicines only as told by [...] keep your urine pale yellow. ? Take nopz-lwi-ywevijn and prescription medicines only as told by your health care provider. This includes any fiber supplements. This information is not intended to replace advice given to you by your health care provider. Make sure you discuss any questions you have with your health care provider. Document Revised: 09/18/2020 Document Reviewed: 09/18/2020 [employer] Patient Education ? 2022 [employer] [facility] 36on 10-12-2023 36 Patient called to make you aware that he was in [facility] ED on (Wednesday) for SOB. He wanted you to look over his records. 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 His BNP is increased to 4000 and was previously 2600 about 1 month ago. Looks like they gave him extra lasix in the ED and recommended he follow up with Dr. Sung outpatient. Can you please review and let me know if you'd like anything done/ordered? Thanks. Normal [facility] XR Abdomen 2 Viewson 023 XR Abdomen [...] mGy = . DAP = . Normal [facility] Lab Reportson 10-04-2023 Lab Reports [id number] 1#1.00TIFF Normal [facility] RAD - MISCon 10-04-2023 RAD - MISC [id number] #1.00TIFF Normal [facility] Ambulatory Visit Summaryon 1 12-01-2022 Ambulatory Visit [...] PM EST With: Nereyda Gomez CNP Where: [facility] Invalid Interpretation Code Abdominal cramping [facility] Consent for Treatmenton 09-15 Consent for Treatment [id number] #1.00TIFF Normal [facility] Gastroenterology Office/Clin ic Noteon 10-01-2023 Gastroenterology Office/Clinic [...] educated t (more content not included)... Normal [facility] Comment on above: Result Comment: Lio madison [...] Bulgur wheat. Millet. Quinoa. Bran muffins. Popcorn. [place] wafer crackers. Meats and other proteins Pax beans, kidney beans, and mendez beans. Soybeans. [...] Cream cheese. Sour cream. Fats and oils [place]. Beverages Soft drinks. Other foods Cakes and [...] provider. Document Revised: (more content not included)... [facility] 36on 09-20-2023 36 Called and spoke with and rescheduled appointment and informed her patient would need to get labs done. [facility] 36 Patients called in to reschedule appointment from 09/08 [facility] Office Visiton 09-17-2023 Follow-up visit [id number] Nadir Heredia 1940 [facility] Provider Department Center 09/17/2023 CLARIBEL VILLALOBOS [facility] Family History Problem Relation Age of Onset Coronary artery disease Father Family Status - Relation Status Age at Father Level of Service:56566 LA OFFICE/OUTPATIENT ESTABLISHED MOD MDM 30-39 MIN Reason for Visit and Comments: Follow-up [934998] [facility] HPon 08-31-2023 [facility] Cardiology - [facility] Clinic Subjective Nadir Heredia is a 83 [...] extremity edema. He was admitted to the [facility] in August 2022 due to hyponatremia, hyperkalemia and acute kidney injury, leukocytosis secondary to COVID-19 causing dehydration. I saw him on 05/24/2023 and the office and he had significant evidence of volume overload by exam and echocardiogram. I intensified his diuretic regimen. He ended up getting admitted to the [facility] with acute heart failure exacerbation and [...] Allergies Allergen Reactions Iodinated Contrast Media Nitroglycerin Geskmwz-Lmj-Kzx Reductase Inhibitors Medications Current Outpatient Medications: acyclovir [...] Take 1 ta (more content not included)... [facility] NURSNOTEon 08-31-2023 NURSNOTE Pt performed and passed bedside swallow study. RN educated pt on d/c instructions. RN encouraged pt to voice any questions or concerns. Pt verbalizes no questions or concerns at this time. Pt was wheeled off of unit with all of belongings. [facility] Telephoneon 08-24-2023 Telephone [id number] Nadir Heredia 1940 M Date Provider Department Center 08/24/2023 PapiRABIA Sweet [facility] Family History Problem Relation Age of Onset Coronary artery disease Father Family Status - Relation Status Age at Father [facility] Office Visiton 07-21-2023 Follow-up visit [id number] Nadir Heredia 1940 M Date Provider Department Center 07/21/2023 Parris-CLARIBEL PUGA [facility] Family History Problem Relation Age of Onset Coronary artery disease Father Family Status - Relation Status Age at Father Level of Service:49130 LA OFFICE/OUTPATIENT ESTABLISHED MOD MDM 30-39 MIN Reason for Visit and Comments: Follow-up [768444] [facility] Office Visiton 06-14-2023 Follow-up visit [id number] Nadir Heredia 1940 M Date Provider Department Center 06/14/2023 RYDER RODRÍGUEZ MILKA [facility] Family History Problem Relation Age of Onset Coronary artery disease Father Family Status - Relation Status Age at Father Level of Service:82371 LA OFFICE/OUTPATIENT ESTABLISHED MOD MDM 30-39 MIN [facility] Ambulatory Visit Summaryon 0 06-10-2023 Ambulatory Visit [...] AM EDT With: Nereyda Gomez CNP Where: [facility] Normal [facility] Gastroenterology Office/Clin ic Noteon 06-10-2023 Gastroenterology Office/Clinic Note HPI Staff Nadir is an 83 y.o. male here for 2 month follow up He continues with intermittent diarrhea. He states he's been able to hold stool until reaches bathroom. He states he has terrible gas recently hospitalized at [facility] for heart failure He continues with [...] day(s), # 90 cap(s), Refills(s) 0, Pharmacy: [facility]/pharmacy #6 (more content not included)... Normal [facility] Comment on above: Result Comment: Elec tronically [...] liquor (44 mL). General instructions ? Take tuvm-omu-vksxrwn and prescription medicines only as told by [...] 02/19/2021 D (more content not included)... Normal [facility] Office Visiton 05-24-2023 Follow-up visit [id number] Nadir Heredia 1940 [facility] Provider Department Center 05/24/2023 367-MOUKARBEL, CLARIBEL BH CARD [facility] Family History Problem Relation Age of Onset Coronary artery disease Father Family Status - Relation Status Age at Father Level of Service:86946 LA OFFICE/OUTPATIENT ESTABLISHED MOD MDM 30-39 MIN Normal [facility] Giardia, Direct, EIAon 04-22 G. lamblia Ag IA Ql (Stl) Negative Invalid Interpretation Code Negative [facility] Comment on above: Result Comment: Perf ormed at: [address] [id number] PhD Huan Vyas Performed By: #### 3 [id number], [id number], [id number], [id number], [id number], [id number] ####[facility] [address] [place] [address] O & P EXAM, ROUTINE, REFLEXo n 04-22-2023 Ova and parasites identified Concentration Nom (Stl) Comment Invalid Interpretation Code [facility] Comment on above: Result Comment: No o va, cysts, or parasites seen. One negative specimen does not rule out the possibility of a parasitic infection. Performed at: [address] [id number] PhD Huan Vyas Performed By: #### 3 [id number], [id number], [id number], [id number], [id number], [id number] ####[facility] [address] [place] [address] O & P Exam, Routineon 2022 Ova and parasites identified LM Nom (Unsp spec) Final report Invalid Interpretation Code [facility] Comment on above: Result Comment: Thes e results were obtained using wet preparation(s) and trichrome stained smear. This test does not include testing for Cryptosporidium parvum, Cyclospora, or Microsporidia. Performed at: [address] [id number] PhD Huan Vyas Performed By: #### 3 [id number], [id number], [id number], [id number], [id number], [id number] ####[facility] [address] [place] [address] CDiff PCRon 04-15-2023 CDiff PCR Unable to perform test due to consistency of stool. C. Difficile testing will only be performed on diarrheal (unformed) stool unless ileus due to C. difficile is expected. Reference: Clinical Practice Guidelines for Clostridium difficile Infection in Adults, Infection and Hospital Epidemiology March 2010, Vol 31, No 5. Normal [facility] Cdiff Specimen Acceptable Unacceptable Normal [facility] Comment on above: Performed By: #### 3 [id number], [id number], [id number], 92456617, [id number], [id number] ####[facility] [address] [place] [address] Order Cancelled YES Normal [facility] Comment on above: Performed By: #### 3 [id number], 84588301, [id number], [id number], [id number], [id number] ####[facility] [address] [place] [address] Enteric Panel by PCRon 04-15 C. coli+jejuni+upsaliens is DNA SULTANA+non-probe Ql (Stl) Not detected [facility] Comment on above: Result Comment: Test ing was performed utilizing reverse acetylene operator (RT), polymerase chain reaction (PCR), and array [...] nulcleic acid test. Performed By: #### 3 9782197, 79691168, [id number], 57959111, [id number], [id number] ####[facility] [address] [place] [address] E. coli stx1+stx2 genes SULTANA+non-probe Ql (Stl) Negative Normal [facility] Comment on above: Performed By: #### 3 6741011, 10701654, [id number], 86228569, [id number], [id number] ####[facility] [address] [place] [address] Enteric Panel by PCR Negative Normal [facility] Enteric Panel Intrl QC Pass Normal [facility] Comment on above: Result Comment: Test ing was performed utilizing reverse acetylene operator (RT), polymerase chain reaction (PCR), and array [...] 1 and 2. Performed By: #### 3 7661717, 30403149, 7422977109, 34786003, [id number], 25351578 ####[facility] [address] [place] [address] Norovirus genogroup I+II RNA SULTANA+non-probe Ql (Stl) Not detected Normal [facility] Comment on above: Performed By: #### 3 3999258, 15977668, [id number], 15299937, [id number], 72755397 ####[facility] [address] [place] [address] Rotavirus A RNA SULTANA+non-probe Ql (Stl) Not detected Normal [facility] Comment on above: Performed By: #### 3 4859457, 95058760, [id number], 34667350, 1539784371, 00555934 ####[facility] [address] [place] [address] S. enterica+bongori DNA SULTANA+non-probe Ql (Stl) Not detected Normal [facility] Comment on above: Result Comment: This test result should be correlated with clinical presentations and medical history by a healthcare provider to determine its clinical significance. Performed By: #### 3 1023228, 36109643, [id number], 92199724, [id number], [id number] ####[facility] [address] [place] [id number] Shigella species+EIEC invasion plasmid antigen H ipaH gene SULTANA+non-probe Ql (Stl) Not detected Normal [facility] Comment on above: Performed By: #### 3 6742861, 12956030, [id number], 17746982, [id number], 76503343 ####[facility] [address] [place] [address] V. cholerae+parahaemolyt icus+vulnificus DNA SULTANA+non-probe Ql (Stl) Not detected Normal [facility] Comment on above: Performed By: #### 3 6806170, 74770146, [id number], 00404854, [id number], 80532192 ####[facility] [address] [place] [address] Y. enterocolitica DNA SULTANA+non-probe Ql (Stl) Not detected Normal [facility] Comment on above: Performed By: #### 3 5957362, 19902530, [id number], 74958265, 1819694723, 92384299 ####[facility] [address] [place] [address] Fecal WBC Lactoferrinon Fecal WBC Lactoferrin Negative Normal Negative [facility] Comment on above: Result Comment: The semi-quantitative detection of elevated levels of fecal lactoferrin is a marker for fecal leukocytes and an indication of intestinal inflammation. Performed By: #### 3 9223921, 79069952, [id number], 56660762, 2586127886, 85672861 ####[facility] [address] [place] [address] MICRO OTHER TESTSOrdered By: Francisco Bolanos on [...] AM EDT With: Nereyda Gomez CNP Where: [facility] Normal [facility] Auto Diffon 04-13-2023 Basophils/100 WBC (Bld) 0.9 % Normal 0.0-2.0 [facility] Comment on above: Order Comment: Order Added by Discern Expert. Performed By: #### 1 2828910, 9945698, 7929967, 1810842 ####[address] [place] [address] Basophils/Leukocytes Auto (Bld) [Pure # fraction] 0.1 E9/L Normal 0.0-0.2 [facility] Comment on above: Order Comment: Order Added by Discern Expert. Performed By: #### 1 4157759, 8811926, 2957838, 1393997 ####[address] [address] Eosinophils/100 WBC (Bld) 5.1 % Normal 0.0-8.0 [facility] Comment on above: Order Comment: Order Added by Discern Expert. Performed By: #### 1 5978858, 6139691, 5235670, 3619545 ####[address] [address] Eosinophils/Leukocyte s Auto (Bld) [Pure # fraction] 0.3 E9/L Normal 0.0-0.5 [facility] Comment on above: Order Comment: Order Added by Discern Expert. Performed By: #### 1 5463019, 5095834, 5491264, 7736330 ####[address] [place] [address] Lymphocytes/100 WBC (Bld) 13.6 % Low 14.0-50.0 [facility] Comment on above: Order Comment: Order Added by Discern Expert. Performed By: #### 1 7593294, 1126220, 2326234, 5832879 ####[address] [address] Lymphocytes/Leukocyte s Auto (Bld) [Pure # fraction] 0.9 E9/L Low 1.0-4.0 [facility] Comment on above: Order Comment: Order Added by Discern Expert. Performed By: #### 1 8779969, 8189992, 8426586, 5082444 ####[address] [address] Monocytes/100 WBC (Bld) 11.9 % Normal 4.0-14.0 [facility] Comment on above: Order Comment: Order Added by Discern Expert. Performed By: #### 1 1556814, 2531514, 1164479, 8180079 ####[address] [address] Monocytes/Leukocytes Auto (Bld) [Pure # fraction] 0.8 E9/L Normal 0.2-1.0 [facility] Comment on above: Order Comment: Order Added by Discern Expert. Performed By: #### 1 9046180, 7522756, 3332496, 2238487 ####[address] [address] Neutrophils/100 WBC (Bld) 68.5 % Normal 36.0-75.0 [facility] Comment on above: Order Comment: Order Added by Discern Expert. Performed By: #### 1 6575845, 9455353, 1762791, 1104812 ####[address] [address] Neutrophils/Leukocyte s Auto (Bld) [Pure # fraction] 4.6 E9/L Normal 2.0-7.5 [facility] Comment on above: Order Comment: Order Added by Discern Expert. Performed By: #### 1 4951521, 2275556, 4006800, 5750292 ####[address] [address] CBC w/ Auto Diffon 3 Erythrocyte distribution width (RBC) [Ratio] 14.7 % High 10.9-14.2 [facility] Comment on above: Performed By: #### 1 [id number], 2574567, 9526688, 6725236 ####[address] [place] [address] Hematocrit (Bld) [Volume fraction] 40.3 % Normal 37.7-49.0 [facility] Comment on above: Performed By: #### 1 [id number], 2217836, 0323754, 1345361 ####[address] [address] Hemoglobin (Bld) [Mass/Vol] 13.7 g/dL Normal 13.5-17.5 [facility] Comment on above: Performed By: #### 1 [id number], 6963189, 1234048, 2444868 ####[address] [address] MCH (RBC) [Entitic mass] 33.9 pg Normal 27.0-34.0 [facility] Comment on above: Performed By: #### 1 8041769, 0168271, 8638712, 8052717 ####[address] [address] MCHC (RBC) [Mass/Vol] 34.0 g/dL Normal 31.4-36.0 [facility] Comment on above: Performed By: #### 1 5648299, 6163770, 3495265, 2904858 ####[address] [address] MCV (RBC) [Entitic vol] 99.8 fL Normal 80.0-100.0 [facility] Comment on above: Performed By: #### 1 9171043, 5914100, 3898648, 1562440 ####[address] [address] Platelet mean volume (Bld) [Entitic vol] 9.8 fL Normal 6.4-10.8 [facility] Comment on above: Performed By: #### 1 6019432, 8086395, 2738326, 2048830 ####[address] [place] [address] Platelets (Bld) [#/Vol] 161.0 E9/L Normal 150.0-500.0 [facility] Comment on above: Performed By: #### 1 9045626, 7675087, 5512157, 2781027 ####[facility] [address] [place] [address] RBC (Bld) [#/Vol] 4.0 E12/L Low 4.3-5.9 [facility] Comment on above: Performed By: #### 1 2416602, 5439456, 5403793, 8185832 ####[facility] [address] [place] [address] WBC corrected for nucl RBC Auto (Bld) [#/Vol] 6.7 E9/L Normal 4.0-11.0 [facility] Comment on above: Performed By: #### 1 2755742, 0094798, 9079543, 6654640 ####[facility] [address] [place] [address] CHEMISTRYOrdered By: SYSTEM SYSTEM on 04-13-2023 Albumin [...] 04-13-2023 Albumin [Mass/Vol] 3.8 g/dL Normal 3.3-5.0 [facility] Comment on above: Performed By: #### 1 9557621, 5875723, 1854337, 8130507 ####[facility] [address] [place] [address] Albumin/Globulin (S) [Mass conc ratio] 1.4 Normal 1.1-2.2 [facility] Comment on above: Performed By: #### 1 4373699, 5314447, 6166285, 0058482 ####[facility] [address] [place] [address] ALP [Catalytic activity/Vol] 61 Int._Unit/L Normal 21-98 [facility] Comment on above: Performed By: #### 1 0507598, 7790967, 5619288, 6139764 ####[facility] [address] [place] [address] ALT No additional P-5'-P [Catalytic activity/Vol] 16 Int._Unit/L Normal 6-46 [facility] Comment on above: Performed By: #### 1 1598785, 7474045, 0796287, 4956485 ####[facility] [address] [place] [facility] [place] [address] Anion gap [Moles/Vol] 13 mmol/L Normal 6-16 [facility] Comment on above: Performed By: #### 1 5989859, 6320358, 8494887, 3702080 ####[facility] [address] [place] [address] AST [Catalytic activity/Vol] 18 Int._Unit/L Normal 5-43 [facility] Comment on above: Performed By: #### 1 5788015, 6952206, 0748836, 2539424 ####[facility] [address] [place] [facility] [place] [address] Bilirubin [Mass/Vol] 0.5 mg/dL Normal 0.0-1.1 [facility] Comment on above: Performed By: #### 1 6562673, 3057036, 0998425, 9968191 ####[facility] [address] [place] [facility] [place] [address] Calcium [Mass/Vol] 8.8 mg/dL Low 8.9-11.1 [facility] Comment on above: Performed By: #### 1 5656865, 1198104, 3404137, 6812696 ####[facility] [address] [place] [address] Chloride [Moles/Vol] 104 mmol/L Normal 101-111 [facility] Comment on above: Performed By: #### 1 2686328, 8211148, 0859970, 4872045 ####[facility] [address] [place] [address] CO2 [Moles/Vol] 28 mmol/L Normal 21-31 [facility] Comment on above: Performed By: #### 1 4106655, 6713710, 0256259, 4504778 ####[facility] [address] [place] [address] Creatinine [Mass/Vol] 1.8 mg/dL High 0.5-1.3 [facility] Comment on above: Performed By: #### 1 8435342, 1951502, 9830933, 6677368 ####[facility] [address] [place] [address] Globulin (S) [Mass/Vol] 2.8 g/dL Normal 1.4-4.0 [facility] Comment on above: Performed By: #### 1 7670371, 2719106, 9078582, 4733102 ####[facility] [address] [place] [address] Glucose [Mass/Vol] 111 mg/dL Normal 55-199 [facility] Comment on above: Result Comment: If t his glucose result represents a fasting glucose, interpretation should refer to the following reference range: 55-99 mg/dL Performed By: #### 1 3454096, 1881190, 6626474, 4138983 ####[facility] [address] [place] [address] Potassium [Moles/Vol] 4.1 mmol/L Normal 3.5-5.3 [facility] Comment on above: Performed By: #### 1 8047251, 8706226, 7479534, 6924478 ####[facility] [address] [place] [address] Protein [Mass/Vol] 6.6 g/dL Normal 6.0-7.8 [facility] Comment on above: Performed By: #### 1 1692367, 6581116, 1835114, 7976166 ####[facility] [address] [place] [address] Sodium [Moles/Vol] 141 mmol/L Normal 135-145 [facility] Comment on above: Performed By: #### 1 7123460, 1289505, 9678031, 4570549 ####[facility] [address] [place] [address] Urea nitrogen [Mass/Vol] 24 mg/dL High 5- [facility] Comment on above: Performed By: #### 1 4917707, 1057337, 2456617, 8088471 ####[facility] [address] [place] [address] Urea nitrogen/Creatinine [Mass ratio] 13 No Units Normal 10-20 [facility] Comment on above: Performed By: #### 1 1136549, 8297059, 9657404, 9572237 ####[facility] [address] [place] [address] Consent for Treatmenton 03-17 Consent for Treatment [id number] #1.00CD:127 Normal [facility] Gastroenterology Office/Clin ic Noteon 04-13-2023 Gastroenterology Office/Clinic [...] 4 mg= (more content not included)... Normal [facility] Comment on above: Result Comment: Elec tronically [...] [facility] HemeAutoSS Orders Onlyon 04-13-2023 Orders Only [id number] Nadir Heredia 1940 M Date Provider Department Center 04/13/2023 JanetteLU JOHNSON [facility] LISA Comprehensiv Family History Problem Relation Age of Onset Coronary artery disease Father Family Status - Relation Status Age at Father Normal [facility] Orders Only [id number] Nadir Heredia 1940 M Date Provider Department Center 04/13/2023 LU BYRD [facility] INT MED Comprehensiv Family History Problem Relation Age of Onset Coronary artery disease Father Family Status - Relation Status Age at Father Normal [facility] eGFRon 04-13-2023 GFR/1.73 sq M.predicted among non-blacks MDRD (S/P/Bld) [Vol rate/Area] 37 mL/min/1.73 m2 Low >=59 [facility] Comment on above: Order Comment: Order added by Discern Expert. Result Comment: Senior Risk Analyst rd kidney disease could be indicated at eGFR's of less than 60 mL/min/1.73m2. Kidney failure is indicated at less than 15 mL/min/1.73m2. Performed By: #### 1 [id number], 0758934, 4653343, 4044186 ####[facility] [address] [place] [address] 36on 04-08-2023 36 Patient contacted [facility] Telephoneon 04-08-2023 Telephone [id number] Nadir Heredia 1940 [facility] Provider Department [place] 04/08/2023 RUTHIE OWEN [facility] NEPHRO Comprehensiv Family History Problem Relation Age of Onset Coronary artery disease Father Family Status - Relation Status Age at Father Normal [facility] Office Visiton 04-07-2023 Follow-up visit [id number] Nadir Heredia 1940 M Date Provider Department Center 04/07/2023 RUTHIE OWEN [facility] NEPHRO Comprehensiv Family History Problem Relation Age of Onset Coronary artery disease Father Family Status - Relation Status Age at Father Level of Service:21204 LA OFFICE/OUTPATIENT ESTABLISHED MOD MDM 30-39 MIN Reason for Visit and Comments: Follow-up [345391] Normal [facility] ALBUMINon 03-24-2023 Albumin [Mass/Vol] 3.3 g/dL Critically low 3.4-5.0 [facility] Comment on above: Performed By: #### ERICK Jacques, PHOS #### [facility] [address] [place] [address] Dr. David Magana GLYCOHEMOGLOBIN A1Con 2022 ADA RECOMMENDATION SEE BELOW Normal [facility] Comment on above: Result Comment: ADA RECOMMENDED LIMIT 4.0 - 6.0 ADA THERAPEUTIC TARGET < 7.0 ACTION SUGGESTED > 7.0 Performed By: #### A 1C #### [facility] [address] [place] [address] Dr. David Magana Glucose [Mass/Vol] 108 mg/dL Normal [facility] Comment on above: Performed By: #### A 1C #### [facility] [address] [place] [address] Dr. David Magana HbA1c (Bld) [Mass fraction] 5.4 % Normal 4.5-6.2 [facility] Comment on above: Performed By: #### A 1C #### [facility] [address] [place] [address] Dr. David Magana PHOSPHORUSon 03-24-2023 Phosphate [Mass/Vol] 3.6 mg/dL Normal 2.6-4.7 [facility] Comment on above: Performed By: #### M ERICK Faith, PHOS #### [facility] [address] [place] [address] Dr. David Magana PROF CHEM 8 (BAS METB)on Anion gap [Moles/Vol] 11.6 mmol/L Normal [facility] Comment on above: Performed By: #### M ERICK Faith, PHOS #### [facility] [address] [place] [address] Dr. David Magana Calcium [Mass/Vol] 8.9 mg/dL Normal 8.5-10.1 [facility] Comment on above: Performed By: #### M G, BMP, PHOS #### [facility] [address] [address] [address] David Magana Chloride [Moles/Vol] 107 mmol/L Normal 98-107 [facility] Comment on above: Performed By: #### M G, BMP, PHOS #### [facility] [address] [address] [address] David Magana CO2 [Moles/Vol] 30.8 mmol/L Normal 21.0-32.0 [facility] Comment on above: Performed By: #### M G, BMP, PHOS #### [facility] [address] [address] [address] David Magana Creatinine [Mass/Vol] 1.67 mg/dL Critically high 0.70-1.30 [facility] Comment on above: Performed By: #### M G, BMP, PHOS #### [facility] [address] [address] [address] David Magana EGFR-AF [facility] 48 mL/min/1.73m2 Critically low >=60 [facility] Comment on above: Performed By: #### M G, BMP, PHOS #### [facility] [address] [address] [address] David Magana EGFR-NON AF [facility] 39 mL/min/1.73m2 Critically low >=60 [facility] Comment on above: Performed By: #### M G, BMP, PHOS #### [facility] [address] [address] [address] David Magana Glucose [Mass/Vol] 128 mg/dL Critically high 74-106 [facility] Comment on above: Performed By: #### M G, BMP, PHOS #### [facility] [address] [address] [address] David Magana Potassium [Moles/Vol] 4.4 mmol/L Normal 3.5-5.1 [facility] Comment on above: Performed By: #### M G, BMP, PHOS #### [facility] [address] [address] [address] David Magana Sodium [Moles/Vol] 145 mmol/L Normal 136-145 [facility] Comment on above: Performed By: #### M ERICK Faith, PHOS #### [facility] [address] [place] [address] Dr. David Magana Urea nitrogen [Mass/Vol] 25.0 mg/dL Critically high 7.0-18.0 [facility] Comment on above: Performed By: #### M ERICK Faith, PHOS #### [facility] [address] [place] [address] Dr. David Magana Urea nitrogen/Creatinine [Mass ratio] 15.0 mg/mg Normal [facility] Comment on above: Performed By: #### M ERICK Faith PHOS #### [facility] [address] [place] [address] Dr. David Magana VITAMIN D 25 OHon 03-24-2023 VIT D 25-OH 11.6 ng/mL Normal [facility] Comment on above: Performed By: #### C BC #### [facility] [address] [place] [address] Dr. David Magana VIT D RANGES SEE BELOW Normal [facility] Comment on above: Result Comment: <20 ng/mL Vit D deficient 20 - <30 ng/mL Vit D insufficient 30 - 100 ng/mL Vit D sufficient >100 ng/mL Potential Toxicity Performed By: #### C BC #### [facility] [address] [place] [address] Dr. David Magana 36on 03-08-2023 36 Orders have been confirmed. Normal [facility] Physician Referralon 023 Physician Referral [id number] #1.00CD:127 [facility] 36on 03-05-2023 36 Patient's , Shanna, would like to confirm the blood work orders needed for patient's next visit with Dr. Linda. Bridge Welder let her know that there are orders in the chart, but that a message would be forwarded to the appropriate alliance party to confirm her question. She can be reached at [phone] or [phone]. Normal [facility] Telephoneon 03-05-2023 Telephone [id number] Nadir Heredia 1940 M Date Provider Department Center 03/05/2023 RUTHIE OWEN [facility] NEPHRO Comprehensiv Family History Problem Relation Age of Onset Coronary artery disease Father Family Status - Relation Status Age at Father Reason for Visit and Comments: Clarification On Lab Orders [Other] Normal [facility] CBC AUTO DIFFon 02-27-2023 BASO # 0.0 103/ul Normal 0.0-0.1 [facility] Comment on above: Performed By: #### M G, BMP, PHOS #### [facility] [address] [place] [address] Dr. David Magana Basophils/100 WBC (Bld) 0.5 % Normal 0.2-2.0 [facility] Comment on above: Performed By: #### M G, BMP, PHOS #### [facility] [address] [place] [address] Dr. David Magana EO # 0.7 103/ul Normal 0.0-0.7 [facility] Comment on above: Performed By: #### M G, BMP, PHOS #### [facility] [address] [place] [address] Dr. David Magana Eosinophils/100 WBC (Bld) 9.3 % Critically high 0.9-7.0 [facility] Comment on above: Performed By: #### M G, BMP, PHOS #### [facility] [address] [place] [address] Dr. David Magana Erythrocyte distribution width (RBC) [Ratio] 14.6 % Normal 11.0-15.0 [facility] Comment on above: Performed By: #### M G, BMP, PHOS #### [facility] [address] [place] [address] Dr. David Magana Hematocrit (Bld) [Volume fraction] 41.5 % Critically low 42.0-54.0 [facility] Comment on above: Performed By: #### M G, BMP, PHOS #### [facility] [address] [place] [address] Dr. David Magana Hemoglobin (Bld) [Mass/Vol] 13.9 g/dL Critically low 14.0-18.0 [facility] Comment on above: Performed By: #### ERICK Jacques, PHOS #### [facility] [address] [place] [address] Dr. David Magana IG # 0.02 10e3/ul Normal 0.00-0.03 [facility] Comment on above: Performed By: #### ERICK Jacques, PHOS #### [facility] [address] [place] [address] Dr. David Magana IG % 0.3 % Normal 0.0-0.5 [facility] Comment on above: Performed By: #### ERICK Jacques, PHOS #### [facility] [address] [place] [address] Dr. David Magana LYMPH # 1.0 103/ul Critically low 1.2-3.8 [facility] Comment on above: Performed By: #### ERICK Jacques, PHOS #### [facility] [address] [place] [address] Dr. David Magana Lymphocytes/100 WBC (Bld) 13.0 % Critically low 20.5-60.0 [facility] Comment on above: Performed By: #### ERICK Jacques, PHOS #### [facility] [address] [place] [address] Dr. David Magana MANUAL DIFF REQ NO Normal [facility] Comment on above: Performed By: #### ERICK Jacques, PHOS #### [facility] [address] [place] [address] Dr. David Magana MCH (RBC) [Entitic mass] 33.5 pg Normal 25.9-34.0 [facility] Comment on above: Performed By: #### ERICK Jacques, PHOS #### [facility] [address] [place] [address] Dr. David Magana MCHC (RBC) [Mass/Vol] 33.5 g/dL Normal 29.9-35.2 [facility] Comment on above: Performed By: #### M G, BMP, PHOS #### [facility] [address] [place] [address] Dr. David Magana MCV (RBC) [Entitic vol] 100.0 fL Critically high 80.0-94.0 [facility] Comment on above: Performed By: #### M G, BMP, PHOS #### [facility] [address] [place] [address] Dr. David Magana MONO # 0.8 103/ul Normal 0.3-0.8 [facility] Comment on above: Performed By: #### M G, BMP, PHOS #### [facility] [address] [place] [address] Dr. David Magana Monocytes/100 WBC (Bld) 10.1 % Normal 1.7-12.0 [facility] Comment on above: Performed By: #### M Marcell BMP, PHOS #### [facility] [address] [place] [address] Dr. David Magana NEUT # 5.0 103/ul Normal 1.4-6.5 [facility] Comment on above: Performed By: #### M Marcell BMP, PHOS #### [facility] [address] [place] [address] Dr. David Magana Neutrophils/100 WBC (Bld) 66.8 % Normal 43.0-75.0 [facility] Comment on above: Performed By: #### M Marcell BMP, PHOS #### [facility] [address] [place] [address] Dr. David Magana Platelet mean volume (Bld) [Entitic vol] 11.2 fL Normal 9.5-13.5 [facility] Comment on above: Performed By: #### M G, BMP, PHOS #### [facility] [address] [place] [address] Dr. David Magana PLT 187 103/ul Normal 150-450 [facility] Comment on above: Performed By: #### M G, BMP, PHOS #### [facility] [address] [place] [address] Dr. David Magana RBC 4.15 106/ul Critically low 4.70-6.10 [facility] Comment on above: Performed By: #### M ERICK Faith PHOS #### [facility] [address] [place] [address] Dr. David Magana WBC 7.5 103/ul Normal 4.0-11.0 [facility] Comment on above: Performed By: #### ERICK Jacques PHOS #### [facility] [address] [place] [address] Dr. David Magana PROF 14(COMP METB)on 023 Albumin [Mass/Vol] 3.5 g/dL Normal 3.4-5.0 [facility] Comment on above: Performed By: #### A 1C #### [facility] [address] [place] [address] Dr. David Magana Albumin/Globulin [Mass ratio] 1.1 {ratio} Normal [facility] Comment on above: Performed By: #### A 1C #### [facility] [address] [place] [address] Dr. David Magana ALP [Catalytic activity/Vol] 76 U/L Normal 46-116 [facility] Comment on above: Performed By: #### A 1C #### [facility] [address] [place] [address] Dr. David Magana ALT [Catalytic activity/Vol] 23 U/L Normal 16-63 [facility] Comment on above: Performed By: #### A 1C #### [facility] [address] [place] [address] Dr. David Magana Anion gap [Moles/Vol] 13.1 mmol/L Normal [facility] Comment on above: Performed By: #### A 1C #### [facility] [address] [place] [address] Dr. David Magana AST [Catalytic activity/Vol] 17 U/L Normal 15-37 [facility] Comment on above: Performed By: #### A 1C #### [facility] [address] [place] [address] Dr. David Magana Bilirubin [Mass/Vol] 0.7 mg/dL Normal 0.2-1.0 [facility] Comment on above: Performed By: #### A 1C #### [facility] [address] [address] [address] David Magana Calcium [Mass/Vol] 9.0 mg/dL Normal 8.5-10.1 [facility] Comment on above: Performed By: #### A 1C #### [facility] [address] [address] [address] David Magana Chloride [Moles/Vol] 105 mmol/L Normal 98-107 [facility] Comment on above: Performed By: #### A 1C #### [facility] [address] [place] [address] Dr. David Magana CO2 [Moles/Vol] 29.0 mmol/L Normal 21.0-32.0 [facility] Comment on above: Performed By: #### A 1C #### [facility] [address] [address] [address] David Magana Creatinine [Mass/Vol] 1.77 mg/dL Critically high 0.70-1.30 [facility] Comment on above: Performed By: #### A 1C #### [facility] [address] [place] [address] Dr. David Magana EGFR-AF [facility] 45 mL/min/1.73m2 Critically low >=60 [facility] Comment on above: Performed By: #### A 1C #### [facility] [address] [address] [address] David Magana EGFR-NON AF [facility] 37 mL/min/1.73m2 Critically low >=60 [facility] Comment on above: Performed By: #### A 1C #### [facility] [address] [place] [address] Dr. David Magana Globulin (S) [Mass/Vol] 3.3 g/dL Normal [facility] Comment on above: Performed By: #### A 1C #### [facility] [address] [address] [address] David Magana Glucose [Mass/Vol] 135 mg/dL Critically high 74-106 [facility] Comment on above: Performed By: #### A 1C #### [facility] [address] [address] [address] David Magana Potassium [Moles/Vol] 4.1 mmol/L Normal 3.5-5.1 [facility] Comment on above: Performed By: #### A 1C #### [facility] [address] [place] [address] Dr. David Magana Protein [Mass/Vol] 6.8 g/dL Normal 6.4-8.2 [facility] Comment on above: Performed By: #### A 1C #### [facility] [address] [place] [address] Dr. David Magana Sodium [Moles/Vol] 143 mmol/L Normal 136-145 [facility] Comment on above: Performed By: #### A 1C #### [facility] [address] [place] [address] Dr. David Magana Urea nitrogen [Mass/Vol] 31.0 mg/dL Critically high 7.0-18.0 [facility] Comment on above: Performed By: #### A 1C #### [facility] [address] [place] [address] Dr. David Magana Urea nitrogen/Creatinine [Mass ratio] 17.5 mg/mg Normal [facility] Comment on above: Performed By: #### A 1C #### [facility] [address] [place] [address] Dr. David Magana PROTIMEon 02-27-2023 INR Coag (PPP) [Relative time] 0.99 {INR} Normal [facility] Comment on above: Performed By: #### A 1C #### [facility] [address] [place] [address] Dr. David Magana INR GUIDELINES SEE BELOW Normal [facility] Comment on above: Result Comment: IDANIA RED INR: 2.0 - 3.0 CONDITIONS NOT LISTED BELOW 2.5 - 3.5 FOR PROSTHETIC HEART VALVE REPLACEMENT 2.5 - 3.5 RECURRENT THROMBOSIS Performed By: #### A 1C #### [facility] [address] [place] [address] Dr. David Magana PT Coag (PPP) [Time] 10.5 s Normal 9.0-11.6 [facility] Comment on above: Performed By: #### A 1C #### [facility] [address] [place] [address] Dr. David Magana PTTon 02-27-2023 aPTT Coag (Bld) [Time] 33.0 s Normal 22.3-36.2 [facility] Comment on above: Performed By: #### P OCGLUC #### [facility] [address] [place] [address] Dr. David Magana ALBUMINon 12-28-2022 Albumin [Mass/Vol] 3.6 g/dL Normal 3.4-5.0 [facility] Comment on above: Performed By: #### C BC #### [facility] [address] [place] [address] Dr. David Magana GLYCOHEMOGLOBIN A1Con 2022 ADA RECOMMENDATION SEE BELOW Normal [facility] Comment on above: Result Comment: ADA RECOMMENDED LIMIT 4.0 - 6.0 ADA THERAPEUTIC TARGET < 7.0 ACTION SUGGESTED > 7.0 Performed By: #### P OCGLUC #### [facility] [address] [place] [address] Dr. David Magana Glucose [Mass/Vol] 140 mg/dL Normal [facility] Comment on above: Performed By: #### P OCGLUC #### [facility] [address] [place] [address] Dr. David Magana HbA1c (Bld) [Mass fraction] 6.5 % Critically high 4.5-6.2 [facility] Comment on above: Performed By: #### P OCGLUC #### [facility] [address] [place] [address] Dr. David Magana MAGNESIUMon 12-28-2022 Magnesium [Mass/Vol] 2.3 mg/dL Normal 1.8-2.4 [facility] Comment on above: Performed By: #### P OCGLUC #### [facility] [address] [address] [address] David Magana PROF CHEM 8 (BAS METB)on Anion gap [Moles/Vol] 13.2 mmol/L Normal [facility] Comment on above: Performed By: #### P OCGLUC #### [facility] [address] [address] [address] David Magana Calcium [Mass/Vol] 9.0 mg/dL Normal 8.5-10.1 [facility] Comment on above: Performed By: #### P OCGLUC #### [facility] [address] [address] [address] David Magana Chloride [Moles/Vol] 105 mmol/L Normal 98-107 [facility] Comment on above: Performed By: #### P OCGLUC #### [facility] [address] [address] [address] David Magana CO2 [Moles/Vol] 28.9 mmol/L Normal 21.0-32.0 [facility] Comment on above: Performed By: #### P OCGLUC #### [facility] [address] [address] [address] David Magana Creatinine [Mass/Vol] 1.66 mg/dL Critically high 0.70-1.30 [facility] Comment on above: Performed By: #### P OCGLUC #### [facility] [address] [address] [address] David Magana EGFR-AF [facility] 48 mL/min/1.73m2 Critically low >=60 [facility] Comment on above: Performed By: #### P OCGLUC #### [facility] [address] [address] [address] David Magana EGFR-NON AF [facility] 40 mL/min/1.73m2 Critically low >=60 [facility] Comment on above: Performed By: #### P OCGLUC #### [facility] [address] [address] [address] David Magana Glucose [Mass/Vol] 123 mg/dL Critically high 74-106 [facility] Comment on above: Performed By: #### P OCGLUC #### [facility] [address] [address] [address] David Magana Potassium [Moles/Vol] 4.1 mmol/L Normal 3.5-5.1 [facility] Comment on above: Performed By: #### P OCGLUC #### [facility] [address] [address] [address] David Magana Sodium [Moles/Vol] 143 mmol/L Normal 136-145 [facility] Comment on above: Performed By: #### P OCGLUC #### [facility] [address] [address] [address] David Magana Urea nitrogen [Mass/Vol] 29.0 mg/dL Critically high 7.0-18.0 [facility] Comment on above: Performed By: #### P OCGLUC #### [facility] [address] [address] [address] David Magana Urea nitrogen/Creatinine [Mass ratio] 17.5 mg/mg Normal [facility] Comment on above: Performed By: #### P OCGLUC #### [facility] [address] [address] [address] David Magana URINE T PROTEIN CREAT RATIOo n 12-28-2022 UR TOTAL PROTEIN <6.0 Normal <=12.0 [facility] Comment on above: Performed By: #### M G, BMP, PHOS #### [facility] [address] [address] [address] David Magana URINE CREAT 41.21 mg/dL Normal 20.00-300.00 [facility] Comment on above: Performed By: #### M G, BMP, PHOS #### [facility] [address] [address] [address] David Magana ALBUMINon 11-16-2022 Albumin [Mass/Vol] 3.3 g/dL Critically low 3.4-5.0 [facility] Comment on above: Performed By: #### C BC #### [facility] [address] [address] [address] David Magana CREATININE URINEon 01-02-202 3 URINE CREAT 19.69 mg/dL Critically low 20.00-300.00 [facility] Comment on above: Performed By: #### M ERICK Faith PHOS #### [facility] [address] [place] [address] Dr. David Magana HEMOGLOBINon 11-16-2022 Hemoglobin (Bld) [Mass/Vol] 14.9 g/dL Normal 14.0-18.0 [facility] Comment on above: Performed By: #### M ERICK Faith PHOS #### [facility] [address] [place] [address] Dr. David Magana MAGNESIUMon 11-16-2022 Magnesium [Mass/Vol] 2.2 mg/dL Normal 1.8-2.4 [facility] Comment on above: Performed By: #### C BC #### [facility] [address] [place] [address] Dr. David Magana PHOSPHORUSon 11-16-2022 Phosphate [Mass/Vol] 3.9 mg/dL Normal 2.6-4.7 [facility] Comment on above: Performed By: #### C BC #### [facility] [address] [place] [address] Dr. David Magana PROF CHEM 8 (BAS METB)on Anion gap [Moles/Vol] 11.9 mmol/L Normal [facility] Comment on above: Performed By: #### C BC #### [facility] [address] [place] [address] Dr. David Magana Calcium [Mass/Vol] 8.8 mg/dL Normal 8.5-10.1 [facility] Comment on above: Performed By: #### C BC #### [facility] [address] [place] [address] Dr. David Magana Chloride [Moles/Vol] 104 mmol/L Normal 98-107 [facility] Comment on above: Performed By: #### C BC #### [facility] [address] [place] [address] Dr. David Magana CO2 [Moles/Vol] 27.4 mmol/L Normal 21.0-32.0 [facility] Comment on above: Performed By: #### C BC #### [facility] [address] [address] [address] David Magana Creatinine [Mass/Vol] 1.68 mg/dL Critically high 0.70-1.30 [facility] Comment on above: Performed By: #### C BC #### [facility] [address] [address] [address] David Magana EGFR-AF [facility] 48 mL/min/1.73m2 Critically low >=60 [facility] Comment on above: Performed By: #### C BC #### [facility] [address] [address] [address] David Magana EGFR-NON AF [facility] 39 mL/min/1.73m2 Critically low >=60 [facility] Comment on above: Performed By: #### C BC #### [facility] [address] [address] [address] David Magana Glucose [Mass/Vol] 212 mg/dL Critically high 74-106 [facility] Comment on above: Performed By: #### C BC #### [facility] [address] [address] [address] David Magana Potassium [Moles/Vol] 4.3 mmol/L Normal 3.5-5.1 [facility] Comment on above: Performed By: #### C BC #### [facility] [address] [address] [address] David Magana Sodium [Moles/Vol] 139 mmol/L Normal 136-145 [facility] Comment on above: Performed By: #### C BC #### [facility] [address] [address] [address] David Magana Urea nitrogen [Mass/Vol] 25.0 mg/dL Critically high 7.0-18.0 [facility] Comment on above: Performed By: #### C BC #### [facility] [address] [address] [address] David Magana Urea nitrogen/Creatinine [Mass ratio] 14.9 mg/mg Normal [facility] Comment on above: Performed By: #### C BC #### [facility] [address] [place] [address] Dr. David Magana PROTEIN RAND URINEon 023 UR PROT <5.0 Normal <=11.9 [facility] Comment on above: Performed By: #### M ERICK Faith PHOS #### [facility] [address] [place] [address] Dr. David Magana US CHANI DOP LEG [...] CLOVER PEREZ Date: 2022-11-02 16:21 Normal [facility] BNPon 07-22-2022 Natriuretic peptide B (Bld) [Mass/Vol] 2143.0 pg/mL Critically high <=1,800.0 [facility] Comment on above: Performed By: #### M ERICK Faith PHOS #### [facility] [address] [place] [address] Dr. David Magana CBC AUTO DIFFon 07-22-2022 BASO # 0.0 103/ul Normal 0.0-0.1 [facility] Comment on above: Performed By: #### A 1C #### [facility] [address] [place] [address] Dr. David Magana Basophils/100 WBC (Bld) 0.3 % Normal 0.2-2.0 [facility] Comment on above: Performed By: #### A 1C #### [facility] [address] [place] [address] Dr. David Magana EO # 0.3 103/ul Normal 0.0-0.7 [facility] Comment on above: Performed By: #### A 1C #### [facility] [address] [address] [address] David Magana Eosinophils/100 WBC (Bld) 2.4 % Normal 0.9-7.0 [facility] Comment on above: Performed By: #### A 1C #### [facility] [address] [place] [address] Dr. David Magana Erythrocyte distribution width (RBC) [Ratio] 13.4 % Normal 11.0-15.0 [facility] Comment on above: Performed By: #### A 1C #### [facility] [address] [place] [address] Dr. David Magana Hematocrit (Bld) [Volume fraction] 42.7 % Normal 42.0-54.0 [facility] Comment on above: Performed By: #### A 1C #### [facility] [address] [place] [address] Dr. David Magana Hemoglobin (Bld) [Mass/Vol] 14.2 g/dL Normal 14.0-18.0 [facility] Comment on above: Performed By: #### A 1C #### [facility] [address] [place] [address] Dr. David Magana IG # 0.18 10e3/ul Critically high 0.00-0.03 [facility] Comment on above: Performed By: #### A 1C #### [facility] [address] [place] [address] Dr. David Magana IG % 1.6 % Critically high 0.0-0.5 [facility] Comment on above: Performed By: #### A 1C #### [facility] [address] [place] [address] Dr. David Magana LYMPH # 0.9 103/ul Critically low 1.2-3.8 [facility] Comment on above: Performed By: #### A 1C #### [facility] [address] [place] [address] Dr. David Magana Lymphocytes/100 WBC (Bld) 8.1 % Critically low 20.5-60.0 [facility] Comment on above: Performed By: #### A 1C #### [facility] [address] [place] [address] Dr. David Magana MANUAL DIFF REQ NO Normal [facility] Comment on above: Performed By: #### A 1C #### [facility] [address] [place] [address] Dr. David Magana MCH (RBC) [Entitic mass] 33.3 pg Normal 25.9-34.0 [facility] Comment on above: Performed By: #### A 1C #### [facility] [address] [place] [address] Dr. David aMgana MCHC (RBC) [Mass/Vol] 33.3 g/dL Normal 29.9-35.2 [facility] Comment on above: Performed By: #### A 1C #### [facility] [address] [place] [address] Dr. David Magana MCV (RBC) [Entitic vol] 100.2 fL Critically high 80.0-94.0 [facility] Comment on above: Performed By: #### A 1C #### [facility] [address] [place] [address] Dr. David Magana MONO # 1.2 103/ul Critically high 0.3-0.8 [facility] Comment on above: Performed By: #### A 1C #### [facility] [address] [place] [address] Dr. David Magana Monocytes/100 WBC (Bld) 10.5 % Normal 1.7-12.0 [facility] Comment on above: Performed By: #### A 1C #### [facility] [address] [place] [address] Dr. David Magana NEUT # 8.9 103/ul Critically high 1.4-6.5 [facility] Comment on above: Performed By: #### A 1C #### [facility] [address] [place] [address] Dr. David Magana Neutrophils/100 WBC (Bld) 77.1 % Critically high 43.0-75.0 [facility] Comment on above: Performed By: #### A 1C #### [facility] [address] [address] [address] David Magana Platelet mean volume (Bld) [Entitic vol] 11.3 fL Normal 9.5-13.5 [facility] Comment on above: Performed By: #### A 1C #### [facility] [address] [place] [address] Dr. David Magana PLT 175 103/ul Normal 150-450 [facility] Comment on above: Performed By: #### A 1C #### [facility] [address] [place] [address] Dr. David Magana RBC 4.26 106/ul Critically low 4.70-6.10 [facility] Comment on above: Performed By: #### A 1C #### [facility] [address] [place] [address] Dr. David Magana WBC 11.5 103/ul Critically high 4.0-11.0 [facility] Comment on above: Performed By: #### A 1C #### [facility] [address] [place] [address] Dr. David Magana PROF 14(COMP METB)on 022 Albumin [Mass/Vol] 2.6 g/dL Critically low 3.4-5.0 [facility] Comment on above: Performed By: #### ERICK Jacques, PHOS #### [facility] [address] [place] [address] Dr. David Magana Albumin/Globulin [Mass ratio] 0.9 {ratio} Normal [facility] Comment on above: Performed By: #### M ERICK Faith, PHOS #### [facility] [address] [place] [address] Dr. David Magana ALP [Catalytic activity/Vol] 49 U/L Normal 46-116 [facility] Comment on above: Performed By: #### M ERICK Faith, PHOS #### [facility] [address] [place] [address] Dr. David Magana ALT [Catalytic activity/Vol] 25 U/L Normal 16-63 [facility] Comment on above: Performed By: #### M ERICK Faith, PHOS #### [facility] [address] [address] [address] David Magana Anion gap [Moles/Vol] 12.8 mmol/L Normal [facility] Comment on above: Performed By: #### M G, BMP, PHOS #### [facility] [address] [address] [address] David Magana AST [Catalytic activity/Vol] 9 U/L Critically low 15-37 [facility] Comment on above: Performed By: #### M G, BMP, PHOS #### [facility] [address] [address] [address] David Magana Bilirubin [Mass/Vol] 0.5 mg/dL Normal 0.2-1.0 [facility] Comment on above: Performed By: #### M G, BMP, PHOS #### [facility] [address] [place] [address] Dr. David Magana Calcium [Mass/Vol] 8.3 mg/dL Critically low 8.5-10.1 [facility] Comment on above: Performed By: #### M G, BMP, PHOS #### [facility] [address] [address] [address] David Magana Chloride [Moles/Vol] 105 mmol/L Normal 98-107 [facility] Comment on above: Performed By: #### M G, BMP, PHOS #### [facility] [address] [address] [address] David Magana CO2 [Moles/Vol] 24.2 mmol/L Normal 21.0-32.0 [facility] Comment on above: Performed By: #### M G, BMP, PHOS #### [facility] [address] [place] [address] Dr. David Magana Creatinine [Mass/Vol] 1.28 mg/dL Normal 0.70-1.30 [facility] Comment on above: Performed By: #### M G, BMP, PHOS #### [facility] [address] [address] [address] David Magana EGFR-AF [facility] >60 Normal >=60 [facility] Comment on above: Performed By: #### M ERICK Faith, PHOS #### [facility] [address] [place] [address] Dr. David Magana EGFR-NON AF [facility] 54 mL/min/1.73m2 Critically low >=60 [facility] Comment on above: Performed By: #### M ERICK Faith, PHOS #### [facility] [address] [place] [address] Dr. David Magana Globulin (S) [Mass/Vol] 2.9 g/dL Normal [facility] Comment on above: Performed By: #### M ERICK Faith, PHOS #### [facility] [address] [place] [address] Dr. David Magana Glucose [Mass/Vol] 205 mg/dL Critically high 74-106 [facility] Comment on above: Performed By: #### ERICK Jacques, PHOS #### [facility] [address] [place] [address] Dr. David Magana Potassium [Moles/Vol] 4.0 mmol/L Normal 3.5-5.1 [facility] Comment on above: Performed By: #### ERICK Jacques, PHOS #### [facility] [address] [place] [address] Dr. David Magana Protein [Mass/Vol] 5.5 g/dL Critically low 6.4-8.2 [facility] Comment on above: Performed By: #### ERICK Jacques, PHOS #### [facility] [address] [place] [address] Dr. David Magana Sodium [Moles/Vol] 138 mmol/L Normal 136-145 [facility] Comment on above: Performed By: #### M ERICK Faith, PHOS #### [facility] [address] [place] [address] Dr. David Magana Urea nitrogen [Mass/Vol] 36.0 mg/dL Critically high 7.0-18.0 [facility] Comment on above: Performed By: #### ERICK Jacques, PHOS #### [facility] [address] [place] [address] Dr. David Magana Urea nitrogen/Creatinine [Mass ratio] 28.1 mg/mg Normal [facility] Comment on above: Performed By: #### M ERICK Faith PHOS #### [facility] [address] [place] [address] Dr. David Magana BNPon 07-21-2022 Natriuretic peptide B (Bld) [Mass/Vol] 3485.0 pg/mL Critically high <=1,800.0 [facility] Comment on above: Result Comment: repe ated Performed By: #### A 1C #### [facility] [address] [place] [address] Dr. David Magana CBC AUTO DIFFon 07-21-2022 BASO # 0.0 103/ul Normal 0.0-0.1 [facility] Comment on above: Performed By: #### C BC #### [facility] [address] [place] [address] Dr. David Magana Basophils/100 WBC (Bld) 0.3 % Normal 0.2-2.0 [facility] Comment on above: Performed By: #### C BC #### [facility] [address] [place] [address] Dr. David Magana EO # 0.2 103/ul Normal 0.0-0.7 [facility] Comment on above: Performed By: #### C BC #### [facility] [address] [place] [address] Dr. David Magana Eosinophils/100 WBC (Bld) 1.9 % Normal 0.9-7.0 [facility] Comment on above: Performed By: #### C BC #### [facility] [address] [place] [address] Dr. David Magana Erythrocyte distribution width (RBC) [Ratio] 13.4 % Normal 11.0-15.0 [facility] Comment on above: Performed By: #### C BC #### [facility] [address] [place] [address] Dr. David Magana Hematocrit (Bld) [Volume fraction] 42.5 % Normal 42.0-54.0 [facility] Comment on above: Performed By: #### C BC #### [facility] [address] [place] [address] Dr. David Magana Hemoglobin (Bld) [Mass/Vol] 14.2 g/dL Normal 14.0-18.0 [facility] Comment on above: Performed By: #### C BC #### [facility] [address] [place] [address] Dr. David Magana IG # 0.22 10e3/ul Critically high 0.00-0.03 [facility] Comment on above: Performed By: #### C BC #### [facility] [address] [place] [address] Dr. David Magana IG % 2.1 % Critically high 0.0-0.5 [facility] Comment on above: Performed By: #### C BC #### [facility] [address] [place] [address] Dr. David Magana LYMPH # 0.8 103/ul Critically low 1.2-3.8 [facility] Comment on above: Performed By: #### C BC #### [facility] [address] [place] [address] Dr. David Magana Lymphocytes/100 WBC (Bld) 7.7 % Critically low 20.5-60.0 [facility] Comment on above: Performed By: #### C BC #### [facility] [address] [place] [address] Dr. David Magana MANUAL DIFF REQ NO Normal [facility] Comment on above: Performed By: #### C BC #### [facility] [address] [place] [address] Dr. David Magana MCH (RBC) [Entitic mass] 33.0 pg Normal 25.9-34.0 [facility] Comment on above: Performed By: #### C BC #### [facility] [address] [place] [address] Dr. David Magana MCHC (RBC) [Mass/Vol] 33.4 g/dL Normal 29.9-35.2 [facility] Comment on above: Performed By: #### C BC #### [facility] [address] [address] [address] David Magana MCV (RBC) [Entitic vol] 98.8 fL Critically high 80.0-94.0 [facility] Comment on above: Performed By: #### C BC #### [facility] [address] [address] [address] David Magana MONO # 1.0 103/ul Critically high 0.3-0.8 [facility] Comment on above: Performed By: #### C BC #### [facility] [address] [address] [address] David Magana Monocytes/100 WBC (Bld) 9.7 % Normal 1.7-12.0 [facility] Comment on above: Performed By: #### C BC #### [facility] [address] [place] [address] Dr. David Magana NEUT # 8.1 103/ul Critically high 1.4-6.5 [facility] Comment on above: Performed By: #### C BC #### [facility] [address] [place] [address] Dr. David Magana Neutrophils/100 WBC (Bld) 78.3 % Critically high 43.0-75.0 [facility] Comment on above: Performed By: #### C BC #### [facility] [address] [address] [address] David Magana Platelet mean volume (Bld) [Entitic vol] 10.7 fL Normal 9.5-13.5 [facility] Comment on above: Performed By: #### C BC #### [facility] [address] [place] [address] Dr. David Magana PLT 177 103/ul Normal 150-450 [facility] Comment on above: Performed By: #### C BC #### [facility] [address] [place] [address] Dr. David Magana RBC 4.30 106/ul Critically low 4.70-6.10 [facility] Comment on above: Performed By: #### C BC #### [facility] [address] [place] [address] Dr. David Magana WBC 10.4 103/ul Normal 4.0-11.0 [facility] Comment on above: Performed By: #### C BC #### [facility] [address] [place] [address] Dr. David Magana PROF 14(COMP METB)on 022 Albumin [Mass/Vol] 2.6 g/dL Critically low 3.4-5.0 [facility] Comment on above: Performed By: #### A 1C #### [facility] [address] [place] [address] Dr. David Magana Albumin/Globulin [Mass ratio] 1.0 {ratio} Normal [facility] Comment on above: Performed By: #### A 1C #### [facility] [address] [place] [address] Dr. David Magana ALP [Catalytic activity/Vol] 50 U/L Normal 46-116 [facility] Comment on above: Performed By: #### A 1C #### [facility] [address] [place] [address] Dr. David Magana ALT [Catalytic activity/Vol] 28 U/L Normal 16-63 [facility] Comment on above: Performed By: #### A 1C #### [facility] [address] [place] [address] Dr. David Magana Anion gap [Moles/Vol] 11.4 mmol/L Normal [facility] Comment on above: Performed By: #### A 1C #### [facility] [address] [place] [address] Dr. David Magana AST [Catalytic activity/Vol] 13 U/L Critically low 15-37 [facility] Comment on above: Performed By: #### A 1C #### [facility] [address] [place] [address] Dr. David Magana Bilirubin [Mass/Vol] 0.4 mg/dL Normal 0.2-1.0 [facility] Comment on above: Performed By: #### A 1C #### [facility] [address] [address] [address] David Magana Calcium [Mass/Vol] 8.4 mg/dL Critically low 8.5-10.1 [facility] Comment on above: Performed By: #### A 1C #### [facility] [address] [address] [address] David Magana Chloride [Moles/Vol] 107 mmol/L Normal 98-107 [facility] Comment on above: Performed By: #### A 1C #### [facility] [address] [address] [address] David Magana CO2 [Moles/Vol] 24.6 mmol/L Normal 21.0-32.0 [facility] Comment on above: Performed By: #### A 1C #### [facility] [address] [place] [address] Dr. David Magana Creatinine [Mass/Vol] 1.26 mg/dL Normal 0.70-1.30 [facility] Comment on above: Performed By: #### A 1C #### [facility] [address] [place] [address] Dr. David Magana EGFR-AF [facility] >60 Normal >=60 [facility] Comment on above: Performed By: #### A 1C #### [facility] [address] [place] [address] Dr. David Magana EGFR-NON AF [facility] 55 mL/min/1.73m2 Critically low >=60 [facility] Comment on above: Performed By: #### A 1C #### [facility] [address] [place] [address] Dr. David Magana Globulin (S) [Mass/Vol] 2.7 g/dL Normal [facility] Comment on above: Performed By: #### A 1C #### [facility] [address] [place] [address] Dr. David Magana Glucose [Mass/Vol] 203 mg/dL Critically high 74-106 [facility] Comment on above: Performed By: #### A 1C #### [facility] [address] [address] [address] David Magana Potassium [Moles/Vol] 4.0 mmol/L Normal 3.5-5.1 [facility] Comment on above: Performed By: #### A 1C #### [facility] [address] [place] [address] Dr. David Magana Protein [Mass/Vol] 5.3 g/dL Critically low 6.4-8.2 [facility] Comment on above: Performed By: #### A 1C #### [facility] [address] [place] [address] Dr. David Magana Sodium [Moles/Vol] 139 mmol/L Normal 136-145 [facility] Comment on above: Performed By: #### A 1C #### [facility] [address] [place] [address] Dr. David Magana Urea nitrogen [Mass/Vol] 33.0 mg/dL Critically high 7.0-18.0 [facility] Comment on above: Performed By: #### A 1C #### [facility] [address] [place] [address] Dr. David Magana Urea nitrogen/Creatinine [Mass ratio] 26.2 mg/mg Normal [facility] Comment on above: Performed By: #### A 1C #### [facility] [address] [place] [address] Dr. David Magana BNPon 07-20-2022 Natriuretic peptide B (Bld) [Mass/Vol] 7478.0 pg/mL Critically high <=1,800.0 [facility] Comment on above: Performed By: #### A 1C #### [facility] [address] [place] [address] Dr. David Magana CBC AUTO DIFFon 07-20-2022 BASO # 0.1 103/ul Normal 0.0-0.1 [facility] Comment on above: Performed By: #### M G, BMP, PHOS #### [facility] [address] [place] [address] Dr. David Magana Basophils/100 WBC (Bld) 0.8 % Normal 0.2-2.0 [facility] Comment on above: Performed By: #### M ERICK Faith, PHOS #### [facility] [address] [place] [address] Dr. David Magana EO # 0.1 103/ul Normal 0.0-0.7 [facility] Comment on above: Performed By: #### M Marcell BMP, PHOS #### [facility] [address] [place] [address] Dr. David Magana Eosinophils/100 WBC (Bld) 0.6 % Critically low 0.9-7.0 [facility] Comment on above: Performed By: #### M ERICK Faith, PHOS #### [facility] [address] [place] [address] Dr. David Magana Erythrocyte distribution width (RBC) [Ratio] 13.4 % Normal 11.0-15.0 [facility] Comment on above: Performed By: #### ERICK Jacques, PHOS #### [facility] [address] [place] [address] Dr. David Magana Hematocrit (Bld) [Volume fraction] 43.2 % Normal 42.0-54.0 [facility] Comment on above: Performed By: #### ERICK Jacques, PHOS #### [facility] [address] [place] [address] Dr. David Magana Hemoglobin (Bld) [Mass/Vol] 14.2 g/dL Normal 14.0-18.0 [facility] Comment on above: Performed By: #### ERICK Jacques, PHOS #### [facility] [address] [place] [address] Dr. David Magana IG # 0.21 10e3/ul Critically high 0.00-0.03 [facility] Comment on above: Performed By: #### M Marcell BMP, PHOS #### [facility] [address] [place] [address] Dr. David Magana IG % 2.0 % Critically high 0.0-0.5 [facility] Comment on above: Performed By: #### M Marcell, BMP, PHOS #### [facility] [address] [address] [address] David Magana LYMPH # 0.8 103/ul Critically low 1.2-3.8 [facility] Comment on above: Performed By: #### M ERICK Faith, PHOS #### [facility] [address] [address] [address] David Magana Lymphocytes/100 WBC (Bld) 7.7 % Critically low 20.5-60.0 [facility] Comment on above: Performed By: #### M Marcell, ERICK, PHOS #### [facility] [address] [address] [address] David Magana MANUAL DIFF REQ NO Normal [facility] Comment on above: Performed By: #### M ERICK Faith, PHOS #### [facility] [address] [place] [address] Dr. David Magana MCH (RBC) [Entitic mass] 33.2 pg Normal 25.9-34.0 [facility] Comment on above: Performed By: #### M ERICK Faith, PHOS #### [facility] [address] [place] [address] Dr. David Magana MCHC (RBC) [Mass/Vol] 32.9 g/dL Normal 29.9-35.2 [facility] Comment on above: Performed By: #### M ERICK Faith, PHOS #### [facility] [address] [place] [address] Dr. David Magana MCV (RBC) [Entitic vol] 100.9 fL Critically high 80.0-94.0 [facility] Comment on above: Performed By: #### M ERICK Faith, PHOS #### [facility] [address] [address] [address] David Magana MONO # 1.0 103/ul Critically high 0.3-0.8 [facility] Comment on above: Performed By: #### M ERICK Faith, PHOS #### [facility] [address] [place] [address] Dr. David Magana Monocytes/100 WBC (Bld) 10.0 % Normal 1.7-12.0 [facility] Comment on above: Performed By: #### ERICK Jacques, PHOS #### [facility] [address] [place] [address] Dr. David Magana NEUT # 8.1 103/ul Critically high 1.4-6.5 [facility] Comment on above: Performed By: #### ERICK Jacques, PHOS #### [facility] [address] [place] [address] Dr. David Magana Neutrophils/100 WBC (Bld) 78.9 % Critically high 43.0-75.0 [facility] Comment on above: Performed By: #### ERICK Jacques, PHOS #### [facility] [address] [place] [address] Dr. David Magana Platelet mean volume (Bld) [Entitic vol] 10.8 fL Normal 9.5-13.5 [facility] Comment on above: Performed By: #### ERICK Jacques, PHOS #### [facility] [address] [place] [address] Dr. David Magana PLT 172 103/ul Normal 150-450 [facility] Comment on above: Performed By: #### ERICK Jacques, PHOS #### [facility] [address] [place] [address] Dr. David Magana RBC 4.28 106/ul Critically low 4.70-6.10 [facility] Comment on above: Performed By: #### ERICK Jacques, PHOS #### [facility] [address] [place] [address] Dr. David Magana WBC 10.3 103/ul Normal 4.0-11.0 [facility] Comment on above: Performed By: #### ERICK Jacques, PHOS #### [facility] [address] [place] [address] Dr. David Magana CULTURE URINEon 07-20-2022 CULTURE [...] F Trimethoprim/Sulfame thoxazole >=320 R F Normal [facility] Comment on above: Performed By: #### M G, BMP, PHOS #### [facility] [address] [place] [address] Dr. David Magana PROF 14(COMP METB)on 022 Albumin [Mass/Vol] 2.6 g/dL Critically low 3.4-5.0 [facility] Comment on above: Performed By: #### A 1C #### [facility] [address] [place] [address] Dr. David Magana Albumin/Globulin [Mass ratio] 0.9 {ratio} Normal [facility] Comment on above: Performed By: #### A 1C #### [facility] [address] [place] [address] Dr. David Magana ALP [Catalytic activity/Vol] 48 U/L Normal 46-116 [facility] Comment on above: Performed By: #### A 1C #### [facility] [address] [place] [address] Dr. David Magana ALT [Catalytic activity/Vol] 27 U/L Normal 16-63 [facility] Comment on above: Performed By: #### A 1C #### [facility] [address] [place] [address] Dr. David Magana Anion gap [Moles/Vol] 13.4 mmol/L Normal [facility] Comment on above: Performed By: #### A 1C #### [facility] [address] [place] [address] Dr. David Magana AST [Catalytic activity/Vol] 22 U/L Normal 15-37 [facility] Comment on above: Performed By: #### A 1C #### [facility] [address] [address] [address] David Magana Bilirubin [Mass/Vol] 0.5 mg/dL Normal 0.2-1.0 [facility] Comment on above: Performed By: #### A 1C #### [facility] [address] [address] [address] David Magana Calcium [Mass/Vol] 8.3 mg/dL Critically low 8.5-10.1 [facility] Comment on above: Performed By: #### A 1C #### [facility] [address] [address] [address] David Magana Chloride [Moles/Vol] 105 mmol/L Normal 98-107 [facility] Comment on above: Performed By: #### A 1C #### [facility] [address] [address] [address] David Magana CO2 [Moles/Vol] 21.0 mmol/L Normal 21.0-32.0 [facility] Comment on above: Performed By: #### A 1C #### [facility] [address] [address] [address] David Magana Creatinine [Mass/Vol] 1.38 mg/dL Critically high 0.70-1.30 [facility] Comment on above: Performed By: #### A 1C #### [facility] [address] [address] [address] David Magana EGFR-AF [facility] 60 mL/min/1.73m2 Normal >=60 [facility] Comment on above: Performed By: #### A 1C #### [facility] [address] [address] [address] David Magana EGFR-NON AF [facility] 49 mL/min/1.73m2 Critically low >=60 [facility] Comment on above: Performed By: #### A 1C #### [facility] [address] [address] [address] David Magana Globulin (S) [Mass/Vol] 2.8 g/dL Normal [facility] Comment on above: Performed By: #### A 1C #### [facility] [address] [place] [address] Dr. David Magana Glucose [Mass/Vol] 156 mg/dL Critically high 74-106 [facility] Comment on above: Performed By: #### A 1C #### [facility] [address] [place] [address] Dr. David Magana Potassium [Moles/Vol] 4.4 mmol/L Normal 3.5-5.1 [facility] Comment on above: Performed By: #### A 1C #### [facility] [address] [place] [address] Dr. David Magana Protein [Mass/Vol] 5.4 g/dL Critically low 6.4-8.2 [facility] Comment on above: Performed By: #### A 1C #### [facility] [address] [place] [address] Dr. David Magana Sodium [Moles/Vol] 135 mmol/L Critically low 136-145 [facility] Comment on above: Performed By: #### A 1C #### [facility] [address] [place] [address] Dr. David Magana Urea nitrogen [Mass/Vol] 40.0 mg/dL Critically high 7.0-18.0 [facility] Comment on above: Performed By: #### A 1C #### [facility] [address] [place] [address] Dr. David Magana Urea nitrogen/Creatinine [Mass ratio] 29.0 mg/mg Normal [facility] Comment on above: Performed By: #### A 1C #### [facility] [address] [place] [address] Dr. aDvid Magana BNPon 07-19-2022 Natriuretic peptide B (Bld) [Mass/Vol] 76660.0 pg/mL Critically high <=1,800.0 [facility] Comment on above: Performed By: #### C VDTB #### [facility] [address] [place] [address] Dr. David Magana CBC AUTO DIFFon 07-19-2022 BASO # 0.0 103/ul Normal 0.0-0.1 [facility] Comment on above: Performed By: #### C BC #### [facility] [address] [address] [address] David Magana Basophils/100 WBC (Bld) 0.3 % Normal 0.2-2.0 [facility] Comment on above: Performed By: #### C BC #### [facility] [address] [address] [address] David Magana EO # 0.0 103/ul Normal 0.0-0.7 [facility] Comment on above: Performed By: #### C BC #### [facility] [address] [address] [address] David Magana Eosinophils/100 WBC (Bld) 0.2 % Critically low 0.9-7.0 [facility] Comment on above: Performed By: #### C BC #### [facility] [address] [address] [address] David Magana Erythrocyte distribution width (RBC) [Ratio] 13.4 % Normal 11.0-15.0 [facility] Comment on above: Performed By: #### C BC #### [facility] [address] [address] [address] David Magana Hematocrit (Bld) [Volume fraction] 43.4 % Normal 42.0-54.0 [facility] Comment on above: Performed By: #### C BC #### [facility] [address] [address] [address] David Magana Hemoglobin (Bld) [Mass/Vol] 14.6 g/dL Normal 14.0-18.0 [facility] Comment on above: Performed By: #### C BC #### [facility] [address] [address] [address] David Magana IG # 0.18 10e3/ul Critically high 0.00-0.03 [facility] Comment on above: Performed By: #### C BC #### [facility] [address] [address] [address] David Magana IG % 1.5 % Critically high 0.0-0.5 [facility] Comment on above: Performed By: #### C BC #### [facility] [address] [address] [address] David Magana LYMPH # 0.8 103/ul Critically low 1.2-3.8 [facility] Comment on above: Performed By: #### C BC #### [facility] [address] [address] [address] David Magana Lymphocytes/100 WBC (Bld) 6.6 % Critically low 20.5-60.0 [facility] Comment on above: Performed By: #### C BC #### [facility] [address] [address] [address] David Magana MANUAL DIFF REQ NO Normal [facility] Comment on above: Performed By: #### C BC #### [facility] [address] [place] [address] Dr. David Magana MCH (RBC) [Entitic mass] 33.7 pg Normal 25.9-34.0 [facility] Comment on above: Performed By: #### C BC #### [facility] [address] [place] [address] Dr. David Magana MCHC (RBC) [Mass/Vol] 33.6 g/dL Normal 29.9-35.2 [facility] Comment on above: Performed By: #### C BC #### [facility] [address] [place] [address] Dr. David Magana MCV (RBC) [Entitic vol] 100.2 fL Critically high 80.0-94.0 [facility] Comment on above: Performed By: #### C BC #### [facility] [address] [place] [address] Dr. David Magana MONO # 1.1 103/ul Critically high 0.3-0.8 [facility] Comment on above: Performed By: #### C BC #### [facility] [address] [place] [address] Dr. David Magana Monocytes/100 WBC (Bld) 9.3 % Normal 1.7-12.0 [facility] Comment on above: Performed By: #### C BC #### [facility] [address] [address] [address] David Magana NEUT # 9.6 103/ul Critically high 1.4-6.5 [facility] Comment on above: Performed By: #### C BC #### [facility] [address] [address] [address] David Magana Neutrophils/100 WBC (Bld) 82.1 % Critically high 43.0-75.0 [facility] Comment on above: Performed By: #### C BC #### [facility] [address] [address] [address] David Magana Platelet mean volume (Bld) [Entitic vol] 10.8 fL Normal 9.5-13.5 [facility] Comment on above: Performed By: #### C BC #### [facility] [address] [address] [address] David Magana PLT 202 103/ul Normal 150-450 [facility] Comment on above: Performed By: #### C BC #### [facility] [address] [address] [address] David Magana RBC 4.33 106/ul Critically low 4.70-6.10 [facility] Comment on above: Performed By: #### C BC #### [facility] [address] [address] [address] David Magana WBC 11.7 103/ul Critically high 4.0-11.0 [facility] Comment on above: Performed By: #### C BC #### [facility] [address] [address] [address] David Magana PROF 14(COMP METB)on 022 Albumin [Mass/Vol] 3.4 g/dL Normal 3.4-5.0 [facility] Comment on above: Performed By: #### A 1C #### [facility] [address] [place] [address] Dr. David Magana Albumin/Globulin [Mass ratio] 1.1 {ratio} Normal [facility] Comment on above: Performed By: #### A 1C #### [facility] [address] [address] [address] David Magana ALP [Catalytic activity/Vol] 63 U/L Normal 46-116 [facility] Comment on above: Performed By: #### A 1C #### [facility] [address] [address] [address] David Magana ALT [Catalytic activity/Vol] 34 U/L Normal 16-63 [facility] Comment on above: Performed By: #### A 1C #### [facility] [address] [place] [address] Dr. David Magana Anion gap [Moles/Vol] 20.9 mmol/L Normal [facility] Comment on above: Performed By: #### A 1C #### [facility] [address] [place] [address] Dr. David Magana AST [Catalytic activity/Vol] 18 U/L Normal 15-37 [facility] Comment on above: Performed By: #### A 1C #### [facility] [address] [place] [address] Dr. David Magana Bilirubin [Mass/Vol] 0.5 mg/dL Normal 0.2-1.0 [facility] Comment on above: Performed By: #### A 1C #### [facility] [address] [place] [address] Dr. David Magana Calcium [Mass/Vol] 8.5 mg/dL Normal 8.5-10.1 [facility] Comment on above: Performed By: #### A 1C #### [facility] [address] [place] [address] Dr. David Magana Chloride [Moles/Vol] 99 mmol/L Normal 98-107 [facility] Comment on above: Performed By: #### A 1C #### [facility] [address] [place] [address] Dr. David Magana CO2 [Moles/Vol] 19.1 mmol/L Critically low 21.0-32.0 [facility] Comment on above: Performed By: #### A 1C #### [facility] [address] [address] [address] David Magana Creatinine [Mass/Vol] 1.80 mg/dL Critically high 0.70-1.30 [facility] Comment on above: Performed By: #### A 1C #### [facility] [address] [address] [address] David Magana EGFR-AF [facility] 44 mL/min/1.73m2 Critically low >=60 [facility] Comment on above: Performed By: #### A 1C #### [facility] [address] [address] [address] Daivd Magana EGFR-NON AF [facility] 36 mL/min/1.73m2 Critically low >=60 [facility] Comment on above: Performed By: #### A 1C #### [facility] [address] [address] [address] David Magana Globulin (S) [Mass/Vol] 3.2 g/dL Normal [facility] Comment on above: Performed By: #### A 1C #### [facility] [address] [address] [address] David Magana Glucose [Mass/Vol] 287 mg/dL Critically high 74-106 [facility] Comment on above: Performed By: #### A 1C #### [facility] [address] [address] [address] David Magana Potassium [Moles/Vol] 5.0 mmol/L Normal 3.5-5.1 [facility] Comment on above: Performed By: #### A 1C #### [facility] [facility] [address] [address] [address] David Magana Protein [Mass/Vol] 6.6 g/dL Normal 6.4-8.2 [facility] Comment on above: Performed By: #### A 1C #### [facility] [address] [address] [address] David Magana Sodium [Moles/Vol] 134 mmol/L Critically low 136-145 [facility] Comment on above: Performed By: #### A 1C #### [facility] [address] [address] [address] David Magana Urea nitrogen [Mass/Vol] 51.0 mg/dL Critically high 7.0-18.0 [facility] Comment on above: Performed By: #### A 1C #### [facility] [address] [place] [address] Dr. David Magana Urea nitrogen/Creatinine [Mass ratio] 28.3 mg/mg Normal [facility] Comment on above: Performed By: #### A 1C #### [facility] [address] [place] [address] Dr. David Magana BLOOD GASES BTYon 07-18-2022 02 MODE NASAL CANNULA Normal [facility] Comment on above: Performed By: #### A 1C #### [facility] [address] [place] [address] Dr. David Magana ALLENS TEST Positive Normal [facility] Comment on above: Performed By: #### A 1C #### [facility] [address] [place] [address] Dr. David Magana Base excess Calc (Bld) [Moles/Vol] -9.0000 mmol/L Critically low -2.0-2.0 [facility] Comment on above: Performed By: #### A 1C #### [facility] [address] [place] [address] Dr. David Magana BIPAP PRESSURE Normal [facility] Comment on above: Performed By: #### A 1C #### [facility] [address] [place] [address] Dr. David Magana CPAP Normal [facility] Comment on above: Performed By: #### A 1C #### [facility] [address] [place] [address] Dr. David Magana FIO2 Normal [facility] Comment on above: Performed By: #### A 1C #### [facility] [address] [place] [address] Dr. David Magana HCO3 (Bld) [Moles/Vol] 18.4 mmol/L Critically low 22.0-26.0 [facility] Comment on above: Performed By: #### A 1C #### [facility] [address] [place] [address] Dr. David Magana LPM 1.5 Normal [facility] Comment on above: Performed By: #### A 1C #### [facility] [address] [place] [address] Dr. David Magana MINUTE VOLUME Normal [facility] Comment on above: Performed By: #### A 1C #### [facility] [address] [place] [address] Dr. David Magana Oxygen (Bld) [Partial pressure] 69.5 mm[Hg] Critically low 80.0-100.0 [facility] Comment on above: Performed By: #### A 1C #### [facility] [address] [place] [address] Dr. David Magana Oxygen saturation in Blood 94.2 % Critically low 95.0-100.0 [facility] Comment on above: Performed By: #### A 1C #### [facility] [address] [place] [address] Dr. David Magana PCO2 29.6 mmHg Critically low 35.0-45.0 [facility] Comment on above: Performed By: #### A 1C #### [facility] [address] [place] [address] Dr. David Magana PEEP [facility] Comment on above: Performed By: #### A 1C #### [facility] [address] [place] [address] Dr. David Magana pH (Bld) 7.355 [pH] Normal 7.350-7.450 [facility] Comment on above: Performed By: #### A 1C #### [facility] [address] [place] [address] Dr. David Magana PIP [facility] Comment on above: Performed By: #### A 1C #### [facility] [address] [place] [address] Dr. David Magana PS [facility] Comment on above: Performed By: #### A 1C #### [facility] [address] [place] [address] Dr. David Magana PUNCTURE SITE LR Normal [facility] Comment on above: Performed By: #### A 1C #### [facility] [address] [place] [address] Dr. David Magana RATE [facility] Comment on above: Performed By: #### A 1C #### [facility] [address] [place] [address] Dr. David Magana VENT MODE [facility] Comment on above: Performed By: #### A 1C #### [facility] [address] [place] [address] Dr. David Magana [place] [facility] Comment on above: Performed By: #### A 1C #### [facility] [address] [place] [address] Dr. David Magana BNPon 07-18-2022 Natriuretic peptide B (Bld) [Mass/Vol] 7047.0 pg/mL Critically high <=1,800.0 [facility] Comment on above: Performed By: #### C VDTBH #### [facility] [address] [place] [address] Dr. David Magana CARDIAC BARRIE 3-6on 2 CK [Catalytic activity/Vol] 396 U/L Critically high 39-308 [facility] Comment on above: Performed By: #### M ERICK Faith, PHOS #### [facility] [address] [place] [address] Dr. David Magana CK.MB [Mass/Vol] 2.94 ng/mL Normal <=3.60 [facility] Comment on above: Performed By: #### M ERICK Faith, PHOS #### [facility] [address] [place] [address] Dr. David Magana HSTROP 11.1 pg/mL Normal 4.0-76.1 [facility] Comment on above: Result Comment: CUT- OFF POINTS HAVE BEEN ESTABLISHED BASED ON THE FOURTH UNIVERSAL DEFINITIONS OF MYOCARDIAL INFARCTION. THE UPPER REFERENCE LIMIT (URL) OF TROPONIN, DEFINED THE 99TH PERCENTILE OF cTnI DISTRIBUTION IN A REFERENCE POPULATION, HAS BEEN CONFIRMED THE DECISION THRESHOLD FOR NE DIAGNOSIS. Performed By: #### M Marcell BMP, PHOS #### [facility] [address] [address] [address] David Magana CK [Catalytic activity/Vol] 58 U/L Normal 39-308 [facility] Comment on above: Performed By: #### M G, BMP, PHOS #### [facility] [address] [address] [address] David Magana CK.MB [Mass/Vol] 1.71 ng/mL Normal <=3.60 [facility] Comment on above: Performed By: #### M G, BMP, PHOS #### [facility] [address] [address] [address] David Magana HSTROP 10.6 pg/mL Normal 4.0-76.1 [facility] Comment on above: Result Comment: CUT- OFF POINTS HAVE BEEN ESTABLISHED BASED ON THE FOURTH UNIVERSAL DEFINITIONS OF MYOCARDIAL INFARCTION. THE UPPER REFERENCE LIMIT (URL) OF TROPONIN, DEFINED THE 99TH PERCENTILE OF cTnI DISTRIBUTION IN A REFERENCE POPULATION, HAS BEEN CONFIRMED THE DECISION THRESHOLD FOR NE DIAGNOSIS. Performed By: #### M G, BMP, PHOS #### [facility] [address] [place] [address] Dr. David Magana CBC AUTO DIFFon 07-18-2022 BASO # 0.0 103/ul Normal 0.0-0.1 [facility] Comment on above: Performed By: #### M G, BMP, PHOS #### [facility] [address] [address] [address] David Magana Basophils/100 WBC (Bld) 0.2 % Normal 0.2-2.0 [facility] Comment on above: Performed By: #### M G, BMP, PHOS #### [facility] [address] [address] [address] David Magana EO # 0.0 103/ul Normal 0.0-0.7 [facility] Comment on above: Performed By: #### M G, BMP, PHOS #### [facility] [address] [address] [address] David Magana Eosinophils/100 WBC (Bld) 0.2 % Critically low 0.9-7.0 [facility] Comment on above: Performed By: #### ERICK Jacques, PHOS #### [facility] [address] [place] [address] Dr. David Magana Erythrocyte distribution width (RBC) [Ratio] 13.2 % Normal 11.0-15.0 [facility] Comment on above: Performed By: #### ERICK Jacques, PHOS #### [facility] [address] [place] [address] Dr. David Magana Hematocrit (Bld) [Volume fraction] 43.8 % Normal 42.0-54.0 [facility] Comment on above: Performed By: #### ERICK Jacques, PHOS #### [facility] [address] [place] [address] Dr. David Magana Hemoglobin (Bld) [Mass/Vol] 14.5 g/dL Normal 14.0-18.0 [facility] Comment on above: Performed By: #### ERICK Jacques, PHOS #### [facility] [address] [place] [address] Dr. David Magana IG # 0.15 10e3/ul Critically high 0.00-0.03 [facility] Comment on above: Performed By: #### ERICK Jacques, PHOS #### [facility] [address] [place] [address] Dr. David Magana IG % 1.3 % Critically high 0.0-0.5 [facility] Comment on above: Performed By: #### ERICK Jacques, PHOS #### [facility] [address] [place] [address] Dr. David Magana LYMPH # 0.5 103/ul Critically low 1.2-3.8 [facility] Comment on above: Performed By: #### ERICK Jacques, PHOS #### [facility] [address] [place] [address] Dr. David Magana Lymphocytes/100 WBC (Bld) 3.8 % Critically low 20.5-60.0 [facility] Comment on above: Performed By: #### ERICK Jacques, PHOS #### [facility] [address] [place] [address] Dr. David Magana MANUAL DIFF REQ NO Normal [facility] Comment on above: Performed By: #### M G, BMP, PHOS #### [facility] [address] [place] [address] Dr. David Magana MCH (RBC) [Entitic mass] 32.7 pg Normal 25.9-34.0 [facility] Comment on above: Performed By: #### M G, BMP, PHOS #### [facility] [address] [place] [address] Dr. David Magana MCHC (RBC) [Mass/Vol] 33.1 g/dL Normal 29.9-35.2 [facility] Comment on above: Performed By: #### M G, BMP, PHOS #### [facility] [address] [place] [address] Dr. David Magana MCV (RBC) [Entitic vol] 98.9 fL Critically high 80.0-94.0 [facility] Comment on above: Performed By: #### M G, BMP, PHOS #### [facility] [address] [place] [address] Dr. David Magana MONO # 0.7 103/ul Normal 0.3-0.8 [facility] Comment on above: Performed By: #### M G, BMP, PHOS #### [facility] [address] [place] [address] Dr. David Magana Monocytes/100 WBC (Bld) 5.7 % Normal 1.7-12.0 [facility] Comment on above: Performed By: #### M G, BMP, PHOS #### [facility] [address] [place] [address] Dr. David Magana NEUT # 10.4 103/ul Critically high 1.4-6.5 [facility] Comment on above: Performed By: #### M G, BMP, PHOS #### [facility] [address] [place] [address] Dr. David Magana Neutrophils/100 WBC (Bld) 88.8 % Critically high 43.0-75.0 [facility] Comment on above: Performed By: #### ERICK Jacques, PHOS #### [facility] [address] [address] [address] David Magana Platelet mean volume (Bld) [Entitic vol] 11.0 fL Normal 9.5-13.5 [facility] Comment on above: Performed By: #### ERICK Jacques, PHOS #### [facility] [address] [address] [address] David Magana PLT 198 103/ul Normal 150-450 [facility] Comment on above: Performed By: #### ERICK Jacques, PHOS #### [facility] [address] [address] [address] David Magana RBC 4.43 106/ul Critically low 4.70-6.10 [facility] Comment on above: Performed By: #### ERICK Jacques, PHOS #### [facility] [address] [address] [address] David Magana WBC 11.8 103/ul Critically high 4.0-11.0 [facility] Comment on above: Performed By: #### ERICK Jacques, PHOS #### [facility] [address] [address] HEAD WO CONon [...] FRANCISCO SUAREZS Date: 2022-07-18 05:12 Normal [facility] Covid-19 PCR (CVDTB)on SARS-CoV-2 (COVID-19) RNA SULTANA+probe Ql (Unsp spec) Detected Critically abnormal NOT DETECTED [facility] Comment on above: Result Comment: This test is not yet approved or cleared by the [place] FDA. When there are no FDA-approved or cleared tests available, and other criteria are met, FDA can make tests available under an emergency access mechanism called an Emergency Use Authorization (EUA). The EUA for this test is supported by the [employer] of Health and Human Service's declaration that [...] used). Performed By: #### C VDTBH #### [facility] [address] [place] [address] Dr. David Magana D-DIMERon 07-18-2022 D-DIMER 1.69 mg/L FEU Critically high <=0.59 [facility] Comment on above: Performed By: #### C BC #### [facility] [address] [place] [address] Dr. David Magana D-DIMER COMMENTS SEE BELOW Normal [facility] Comment on above: Result Comment: Incr eases [...] hospitalization. Performed By: #### C BC #### [facility] [address] [place] [address] Dr. David Magana POINT OF CARE GLUCOSEon Glucose [Mass/Vol] 329 mg/dL Critically high 74-106 [facility] Comment on above: Performed By: #### P OCGLUC #### [facility] [address] [place] [address] Dr. David Magana Glucose [Mass/Vol] 354 mg/dL Critically high 74-106 [facility] Comment on above: Performed By: #### P OCGLUC #### [facility] [address] [address] [address] David Magana PROF 14(COMP METB)on 022 Albumin [Mass/Vol] 3.6 g/dL Normal 3.4-5.0 [facility] Comment on above: Performed By: #### C VDTBH #### [facility] [address] [place] [address] Dr. David Magana Albumin/Globulin [Mass ratio] 1.1 {ratio} Normal [facility] Comment on above: Performed By: #### C VDTBH #### [facility] [address] [place] [address] Dr. David Magana ALP [Catalytic activity/Vol] 67 U/L Normal 46-116 [facility] Comment on above: Performed By: #### C VDTBH #### [facility] [address] [place] [address] Dr. David Magana ALT [Catalytic activity/Vol] 33 U/L Normal 16-63 [facility] Comment on above: Performed By: #### C VDTBH #### [facility] [address] [place] [address] Dr. David Magana Anion gap [Moles/Vol] 23.5 mmol/L Normal [facility] Comment on above: Performed By: #### C VDTBH #### [facility] [address] [place] [address] Dr. David Magana AST [Catalytic activity/Vol] 13 U/L Critically low 15-37 [facility] Comment on above: Performed By: #### C VDTBH #### [facility] [address] [place] [address] Dr. David Magana Bilirubin [Mass/Vol] 0.6 mg/dL Normal 0.2-1.0 [facility] Comment on above: Performed By: #### C VDTBH #### [facility] [address] [place] [address] Dr. David Magana Calcium [Mass/Vol] 8.4 mg/dL Critically low 8.5-10.1 [facility] Comment on above: Performed By: #### C VDTBH #### [facility] [address] [place] [address] Dr. David Magana Chloride [Moles/Vol] 93 mmol/L Critically low 98-107 [facility] Comment on above: Performed By: #### C VDTBH #### [facility] [address] [place] [address] Dr. David Magana CO2 [Moles/Vol] 17.9 mmol/L Critically low 21.0-32.0 [facility] Comment on above: Performed By: #### C VDTBH #### [facility] [address] [place] [address] Dr. David Magana Creatinine [Mass/Vol] 2.15 mg/dL Critically high 0.70-1.30 [facility] Comment on above: Performed By: #### C VDTBH #### [facility] [address] [place] [address] Dr. David Magana EGFR-AF [facility] 36 mL/min/1.73m2 Critically low >=60 [facility] Comment on above: Performed By: #### C VDTBH #### [facility] [address] [place] [address] Dr. David Magana EGFR-NON AF [facility] 30 mL/min/1.73m2 Critically low >=60 [facility] Comment on above: Performed By: #### C VDTBH #### [facility] [address] [place] [address] Dr. David Magana Globulin (S) [Mass/Vol] 3.2 g/dL Normal [facility] Comment on above: Performed By: #### C VDTBH #### [facility] [address] [address] [address] David Magana Glucose [Mass/Vol] 345 mg/dL Critically high 74-106 [facility] Comment on above: Performed By: #### C VDTBH #### [facility] [address] [place] [address] Dr. David Magana Potassium [Moles/Vol] 5.4 mmol/L Critically high 3.5-5.1 [facility] Comment on above: Performed By: #### C VDTBH #### [facility] [address] [place] [address] Dr. David Magana Performed By: #### K #### [facility] [address] [place] [address] Dr. David Magana Protein [Mass/Vol] 6.8 g/dL Normal 6.4-8.2 [facility] Comment on above: Performed By: #### C VDTBH #### [facility] [address] [place] [address] Dr. David Magana Sodium [Moles/Vol] 129 mmol/L Critically low 136-145 [facility] Comment on above: Performed By: #### C VDTBH #### [facility] [address] [place] [address] Dr. David Magana Urea nitrogen [Mass/Vol] 65.0 mg/dL Critically high 7.0-18.0 [facility] Comment on above: Performed By: #### C VDTBH #### [facility] [address] [place] [address] Dr. David Magana Urea nitrogen/Creatinine [Mass ratio] 30.2 mg/mg Normal [facility] Comment on above: Performed By: #### C VDTBH #### [facility] [address] [place] [address] Dr. David Magana UA RANDOM W/MICROSCOPICon BACTERIA NONE SEEN Normal NONE SEEN [facility] Comment on above: Performed By: #### M G, BMP, PHOS #### [facility] [address] [place] [address] Dr. David Magana Bilirubin Ql (U) Negative Normal NEGATIVE [facility] Comment on above: Performed By: #### M G, BMP, PHOS #### [facility] [address] [place] [address] Dr. David Magana CAST NONE SEEN Normal NONE SEEN [facility] Comment on above: Performed By: #### M G, BMP, PHOS #### [facility] [address] [address] [address] David Magana Clarity (U) CLEAR Normal CLEAR [facility] Comment on above: Performed By: #### M G, BMP, PHOS #### [facility] [address] [address] [address] David Magana Color (U) LT. YELLOW Normal YELLOW [facility] Comment on above: Performed By: #### M G, BMP, PHOS #### [facility] [address] [place] [address] Dr. David Magana Crystals LM Nom (Urine sed) NONE SEEN Normal NONE SEEN [facility] Comment on above: Performed By: #### M G, BMP, PHOS #### [facility] [address] [place] [address] Dr. David Magana Epithelial cells LM Ql (Urine sed) RARE Normal NONE SEEN /RARE [facility] Comment on above: Performed By: #### M G, BMP, PHOS #### [facility] [address] [place] [address] Dr. David Magana Glucose Ql (U) 1000 mg/dl Abnormal NEGATIVE [facility] Comment on above: Performed By: #### M G, BMP, PHOS #### [facility] [address] [place] [address] Dr. David Magana Hemoglobin Ql (U) Negative Normal NEGATIVE [facility] Comment on above: Performed By: #### M G, BMP, PHOS #### [facility] [address] [place] [address] Dr. David Magana Ketones Ql (U) 15 mg/dl Abnormal NEGATIVE [facility] Comment on above: Performed By: #### M G, BMP, PHOS #### [facility] [address] [address] [address] David Magana LEUKOCYTES Negative Normal NEGATIVE [facility] Comment on above: Performed By: #### M G, BMP, PHOS #### [facility] [address] [place] [address] Dr. David Magana MUCOUS NONE SEEN Normal NONE SEEN [facility] Comment on above: Performed By: #### M G, BMP, PHOS #### [facility] [address] [address] [address] David Magana Nitrite Ql (U) Negative Normal NEGATIVE [facility] Comment on above: Performed By: #### M G, BMP, PHOS #### [facility] [address] [place] [address] Dr. David Magnaa pH (U) 5.5 [pH] Normal 5-9 [facility] Comment on above: Performed By: #### M G, BMP, PHOS #### [facility] [address] [place] [address] Dr. David Magana RBC NONE SEEN Abnormal 0-2 [facility] Comment on above: Performed By: #### M G, BMP, PHOS #### [facility] [address] [place] [address] Dr. David Magana SPEC GRAVITY <=1.005 Abnormal 1.005-<=1.025 [facility] Comment on above: Performed By: #### M G, BMP, PHOS #### [facility] [address] [place] [address] Dr. David Magana UA PROTEIN Negative Normal NEGATIVE/ TRACE [facility] Comment on above: Performed By: #### M G, BMP, PHOS #### [facility] [address] [place] [address] Dr. David Magana Urobilinogen Qn (U) 0.2 {Dionna'U}/dL Normal 0.2 - 1. 0 [facility] Comment on above: Performed By: #### M G, BMP, PHOS #### [facility] [address] [place] [address] Dr. David Magana WBC NONE SEEN Normal NONE SEEN [facility] Comment on above: Performed By: #### M ERICK Faith, MARCELAS #### [facility] [address] [address] [address] David Magana XR CHEST 1 Von [...] Yefri DWYER Date: 2022-07-18 00:09 Normal [facility] CARDIAC BARRIE ADMITon 022 CK [Catalytic activity/Vol] 61 U/L Normal 39-308 [facility] Comment on above: Performed By: #### C BC #### [facility] [address] [place] [address] Dr. David Magana CK.MB [Mass/Vol] 1.84 ng/mL Normal <=3.60 [facility] Comment on above: Performed By: #### C BC #### [facility] [address] [place] [address] Dr. David Magana HSTROP 9.4 pg/mL Normal 4.0-76.1 [facility] Comment on above: Result Comment: CUT- OFF POINTS HAVE BEEN ESTABLISHED BASED ON THE FOURTH UNIVERSAL DEFINITIONS OF MYOCARDIAL INFARCTION. THE UPPER REFERENCE LIMIT (URL) OF TROPONIN, DEFINED THE 99TH PERCENTILE OF cTnI DISTRIBUTION IN A REFERENCE POPULATION, HAS BEEN CONFIRMED THE DECISION THRESHOLD FOR NE DIAGNOSIS. Performed By: #### C BC #### [facility] [address] [place] [address] Dr. David Magana DUSTIN 533 ng/mL Critically high 16-96 [facility] Comment on above: Performed By: #### C BC #### [facility] [address] [place] [address] Dr. David Magana CBC AUTO DIFFon 07-17-2022 BASO # 0.0 103/ul Normal 0.0-0.1 [facility] Comment on above: Performed By: #### M ERICK Faith, PHOS #### [facility] [address] [place] [address] Dr. David Magana Basophils/100 WBC (Bld) 0.2 % Normal 0.2-2.0 [facility] Comment on above: Performed By: #### ERICK Jacques, PHOS #### [facility] [address] [place] [address] Dr. David Magana EO # 0.0 103/ul Normal 0.0-0.7 [facility] Comment on above: Performed By: #### ERICK Jacques, PHOS #### [facility] [address] [place] [address] Dr. David Magana Eosinophils/100 WBC (Bld) 0.1 % Critically low 0.9-7.0 [facility] Comment on above: Performed By: #### ERICK Jacques, PHOS #### [facility] [address] [place] [address] Dr. David Magana Erythrocyte distribution width (RBC) [Ratio] 13.2 % Normal 11.0-15.0 [facility] Comment on above: Performed By: #### ERICK Jacques, PHOS #### [facility] [address] [place] [address] Dr. David Magana Hematocrit (Bld) [Volume fraction] 43.1 % Normal 42.0-54.0 [facility] Comment on above: Performed By: #### ERICK Jacques, PHOS #### [facility] [address] [place] [address] Dr. David Magana Hemoglobin (Bld) [Mass/Vol] 14.5 g/dL Normal 14.0-18.0 [facility] Comment on above: Performed By: #### ERICK Jacques, PHOS #### [facility] [address] [place] [address] Dr. David Magana IG # 0.14 10e3/ul Critically high 0.00-0.03 [facility] Comment on above: Performed By: #### M G, BMP, PHOS #### [facility] [address] [place] [address] Dr. David Magana IG % 1.2 % Critically high 0.0-0.5 [facility] Comment on above: Performed By: #### M G, BMP, PHOS #### [facility] [address] [place] [address] Dr. David Magana LYMPH # 0.4 103/ul Critically low 1.2-3.8 [facility] Comment on above: Performed By: #### M G, BMP, PHOS #### [facility] [address] [place] [address] Dr. David Magana Lymphocytes/100 WBC (Bld) 3.4 % Critically low 20.5-60.0 [facility] Comment on above: Performed By: #### M G, BMP, PHOS #### [facility] [address] [place] [address] Dr. David Magana MANUAL DIFF REQ NO Normal [facility] Comment on above: Performed By: #### M G, BMP, PHOS #### [facility] [address] [place] [address] Dr. David Magana MCH (RBC) [Entitic mass] 33.3 pg Normal 25.9-34.0 [facility] Comment on above: Performed By: #### M G, BMP, PHOS #### [facility] [address] [place] [address] Dr. David Magana MCHC (RBC) [Mass/Vol] 33.6 g/dL Normal 29.9-35.2 [facility] Comment on above: Performed By: #### M G, BMP, PHOS #### [facility] [address] [place] [address] Dr. David Magana MCV (RBC) [Entitic vol] 98.9 fL Critically high 80.0-94.0 [facility] Comment on above: Performed By: #### M G, BMP, PHOS #### [facility] [address] [place] [address] Dr. David Magana MONO # 1.1 103/ul Critically high 0.3-0.8 [facility] Comment on above: Performed By: #### ERICK Jacques, PHOS #### [facility] [address] [place] [address] Dr. David Magana Monocytes/100 WBC (Bld) 8.9 % Normal 1.7-12.0 [facility] Comment on above: Performed By: #### ERICK Jacques, PHOS #### [facility] [address] [place] [address] Dr. David Magana NEUT # 10.3 103/ul Critically high 1.4-6.5 [facility] Comment on above: Performed By: #### ERICK Jacques, PHOS #### [facility] [address] [place] [address] Dr. David Magana Neutrophils/100 WBC (Bld) 86.2 % Critically high 43.0-75.0 [facility] Comment on above: Performed By: #### ERICK Jacques, PHOS #### [facility] [address] [place] [address] Dr. David Magana Platelet mean volume (Bld) [Entitic vol] 11.1 fL Normal 9.5-13.5 [facility] Comment on above: Performed By: #### ERICK Jacques, PHOS #### [facility] [address] [place] [address] Dr. David Magana PLT 229 103/ul Normal 150-450 [facility] Comment on above: Performed By: #### ERICK Jacques, PHOS #### [facility] [address] [place] [address] Dr. David Magana RBC 4.36 106/ul Critically low 4.70-6.10 [facility] Comment on above: Performed By: #### ERICK Jacques, PHOS #### [facility] [address] [place] [address] Dr. David Magana WBC 11.9 103/ul Critically high 4.0-11.0 [facility] Comment on above: Performed By: #### ERICK Jacques, PHOS #### [facility] [address] [address] [address] David Magana PROF CHEM 8 (BAS METB)on Anion gap [Moles/Vol] 26.5 mmol/L Normal [facility] Comment on above: Performed By: #### C BC #### [facility] [address] [address] [address] David Magana Calcium [Mass/Vol] 8.2 mg/dL Critically low 8.5-10.1 [facility] Comment on above: Performed By: #### C BC #### [facility] [address] [address] [address] David Magana Chloride [Moles/Vol] 89 mmol/L Critically low 98-107 [facility] Comment on above: Performed By: #### C BC #### [facility] [address] [place] [address] Dr. David Magana CO2 [Moles/Vol] 14.5 mmol/L Critically low 21.0-32.0 [facility] Comment on above: Performed By: #### C BC #### [facility] [address] [place] [address] Dr. David Magana Creatinine [Mass/Vol] 2.78 mg/dL Critically high 0.70-1.30 [facility] Comment on above: Performed By: #### C BC #### [facility] [address] [place] [address] Dr. David aMgana EGFR-AF [facility] 27 mL/min/1.73m2 Critically low >=60 [facility] Comment on above: Performed By: #### C BC #### [facility] [address] [address] [address] David Magana EGFR-NON AF [facility] 22 mL/min/1.73m2 Critically low >=60 [facility] Comment on above: Performed By: #### C BC #### [facility] [address] [address] [address] David Magana Glucose [Mass/Vol] 442 mg/dL Critically high 74-106 [facility] Comment on above: Performed By: #### C BC #### [facility] [address] [address] [address] David Magana Potassium [Moles/Vol] 6.0 mmol/L Critically high 3.5-5.1 [facility] Comment on above: Performed By: #### C BC #### [facility] [address] [address] [address] David Magana Sodium [Moles/Vol] 124 mmol/L Critically low 136-145 [facility] Comment on above: Performed By: #### C BC #### [facility] [address] [address] [address] David Magana Urea nitrogen [Mass/Vol] 73.0 mg/dL Critically high 7.0-18.0 [facility] Comment on above: Performed By: #### C BC #### [facility] [address] [address] [address] David Magana Urea nitrogen/Creatinine [Mass ratio] 26.3 mg/mg Normal [facility] Comment on above: Performed By: #### C BC #### [facility] [address] [address] [address] David Magana Covid-19 PCR ([facility])on 06-16 SARS-CoV-2 (COVID-19) RNA SULTANA+probe Ql (Unsp spec) Detected Critically abnormal NOT DETECTED [facility] Comment on above: Result Comment: This test is not yet approved or cleared by the [place] FDA. When there are no FDA-approved or cleared tests available, and other criteria are met, FDA can make tests available under an emergency access mechanism called an Emergency Use Authorization (EUA). The EUA for this test is supported by the [employer] [place] of Health and Human Service's (HHS's) declaration [...] By: #### M G, ERICK, PHOS #### [facility] [address] [address] [address] David Magana ECHOCARDIO M/2D COMPLETEon 0 07-01-2022 ECHOCARDIO M/2D COMPLETE Patient: NADIR HEREDIA Exam Date: 07/01/2022 : 1940 Gender:M Ordering : DR CLARIBEL PUGA M.D. Admission #: [id number] Family : VAN JANETBebeto . Order #: [id number] CLICK HERE TO VIEW EXAM ECHOCARDIOGRAM REPORT [...] M.D. on 07/01/2022 at 16:27 Normal [facility]on SARS-CoV-2 (COVID-19) RNA SULTANA+probe Ql (Unsp spec) Not detected Normal NOT DETECTED [facility] Comment on above: Result Comment: When [...] for this test is supported by the [place] of Health and Human Service's declaration that [...] used). Performed By: #### C VDTB #### [facility] [address] [place] [address] Dr. David Magana CREATININE URINEon 2 URINE CREAT 14.70 mg/dL Critically low 20.00-300.00 [facility] Comment on above: Performed By: #### M G, BMP, PHOS #### [facility] [address] [place] [address] Dr. David Magana GLYCOHEMOGLOBIN A1Con 2021 ADA RECOMMENDATION SEE BELOW Normal [facility] Comment on above: Result Comment: ADA RECOMMENDED LIMIT 4.0 - 6.0 ADA THERAPEUTIC TARGET < 7.0 ACTION SUGGESTED > 7.0 Performed By: #### A 1C #### [facility] [address] [place] [address] Dr. David Magana Glucose [Mass/Vol] 209 mg/dL Normal [facility] Comment on above: Performed By: #### A 1C #### [facility] [address] [place] [address] Dr. David Magana HbA1c (Bld) [Mass fraction] 8.9 % Critically high 4.5-6.2 [facility] Comment on above: Performed By: #### A 1C #### [facility] [address] [place] [address] Dr. David Magana MAGNESIUMon 06-08-2022 Magnesium [Mass/Vol] 2.3 mg/dL Normal 1.8-2.4 [facility] Comment on above: Performed By: #### M G, BMP, PHOS #### [facility] [address] [place] [address] Dr. David Magana PHOSPHORUSon 06-08-2022 Phosphate [Mass/Vol] 3.5 mg/dL Normal 2.6-4.7 [facility] Comment on above: Performed By: #### M G, BMP, PHOS #### [facility] [address] [address] [address] David Magana PROF CHEM 8 (BAS METB)on Anion gap [Moles/Vol] 10.6 mmol/L Normal [facility] Comment on above: Performed By: #### M G, BMP, PHOS #### [facility] [address] [place] [address] Dr. David Magana Calcium [Mass/Vol] 9.2 mg/dL Normal 8.5-10.1 [facility] Comment on above: Performed By: #### M G, BMP, PHOS #### [facility] [address] [address] [address] David Magana Chloride [Moles/Vol] 102 mmol/L Normal 98-107 [facility] Comment on above: Performed By: #### M G, BMP, PHOS #### [facility] [address] [address] [address] David Magana CO2 [Moles/Vol] 30.1 mmol/L Normal 21.0-32.0 [facility] Comment on above: Performed By: #### M G, BMP, PHOS #### [facility] [address] [address] [address] David Magana Creatinine [Mass/Vol] 1.70 mg/dL Critically high 0.70-1.30 [facility] Comment on above: Performed By: #### M G, BMP, PHOS #### [facility] [address] [address] [address] David Magana EGFR-AF [facility] 47 mL/min/1.73m2 Critically low >=60 [facility] Comment on above: Performed By: #### M ERICK Faith, PHOS #### [facility] [address] [place] [address] Dr. David Magana EGFR-NON AF [facility] 39 mL/min/1.73m2 Critically low >=60 [facility] Comment on above: Performed By: #### M ERICK Faith, PHOS #### [facility] [address] [place] [address] Dr. David Magana Glucose [Mass/Vol] 197 mg/dL Critically high 74-106 [facility] Comment on above: Performed By: #### M ERICK Faith, PHOS #### [facility] [address] [place] [address] Dr. David Magana Potassium [Moles/Vol] 4.7 mmol/L Normal 3.5-5.1 [facility] Comment on above: Performed By: #### ERICK Jacques, PHOS #### [facility] [address] [place] [address] Dr. David Magana Sodium [Moles/Vol] 138 mmol/L Normal 136-145 [facility] Comment on above: Performed By: #### ERICK Jacques, PHOS #### [facility] [address] [place] [address] Dr. David Magana Urea nitrogen [Mass/Vol] 25.0 mg/dL Critically high 7.0-18.0 [facility] Comment on above: Performed By: #### ERICK Jacques, PHOS #### [facility] [address] [place] [address] Dr. David Magana Urea nitrogen/Creatinine [Mass ratio] 14.7 mg/mg Normal [facility] Comment on above: Performed By: #### ERICK Jacques, PHOS #### [facility] [address] [place] [address] Dr. David Magana PROTEIN RAND URINEon 022 UR PROT <5.0 Normal <=11.9 [facility] Comment on above: Performed By: #### C NED PROTU #### [facility] [address] [place] [address] Dr. David Magana BILIRUBIN CONJUGATED (DIRECT )on 04-28-2022 BILI, CONJUGATED 0.1 mg/dL Normal 0.0-0.2 [facility] Comment on above: Performed By: #### P OCGLUC #### [facility] [address] [place] [address] Dr. David Magana CBC AUTO DIFFon 04-28-2022 BASO # 0.1 103/ul Normal 0.0-0.1 [facility] Comment on above: Performed By: #### C VDTBH #### [facility] [address] [place] [address] Dr. David Magana Basophils/100 WBC (Bld) 0.7 % Normal 0.2-2.0 [facility] Comment on above: Performed By: #### C VDTBH #### [facility] [address] [place] [address] Dr. David Magana EO # 0.5 103/ul Normal 0.0-0.7 [facility] Comment on above: Performed By: #### C VDTBH #### [facility] [address] [place] [address] Dr. David Magana Eosinophils/100 WBC (Bld) 6.7 % Normal 0.9-7.0 [facility] Comment on above: Performed By: #### C VDTBH #### [facility] [address] [place] [address] Dr. David Magana Erythrocyte distribution width (RBC) [Ratio] 13.6 % Normal 11.0-15.0 [facility] Comment on above: Performed By: #### C VDTBH #### [facility] [address] [place] [address] Dr. David Magana Hematocrit (Bld) [Volume fraction] 45.9 % Normal 42.0-54.0 [facility] Comment on above: Performed By: #### C VDTBH #### [facility] [address] [place] [address] Dr. David Magana Hemoglobin (Bld) [Mass/Vol] 14.9 g/dL Normal 14.0-18.0 [facility] Comment on above: Performed By: #### C VDTBH #### [facility] [address] [place] [address] Dr. David Magana IG # 0.03 10e3/ul Normal 0.00-0.03 [facility] Comment on above: Performed By: #### C VDTBH #### [facility] [address] [place] [address] Dr. David Magana IG % 0.4 % Normal 0.0-0.5 [facility] Comment on above: Performed By: #### C VDTBH #### [facility] [address] [place] [address] Dr. David Magana LYMPH # 1.0 103/ul Critically low 1.2-3.8 [facility] Comment on above: Performed By: #### C VDTBH #### [facility] [address] [place] [address] Dr. David Magana Lymphocytes/100 WBC (Bld) 13.4 % Critically low 20.5-60.0 [facility] Comment on above: Performed By: #### C VDTBH #### [facility] [address] [place] [address] Dr. David Magana MANUAL DIFF REQ NO Normal [facility] Comment on above: Performed By: #### C VDTBH #### [facility] [address] [place] [address] Dr. David Magana MCH (RBC) [Entitic mass] 33.8 pg Normal 25.9-34.0 [facility] Comment on above: Performed By: #### C VDTBH #### [facility] [address] [place] [address] Dr. David Magana MCHC (RBC) [Mass/Vol] 32.5 g/dL Normal 29.9-35.2 [facility] Comment on above: Performed By: #### C VDTBH #### [facility] [address] [place] [address] Dr. David Magana MCV (RBC) [Entitic vol] 104.1 fL Critically high 80.0-94.0 [facility] Comment on above: Performed By: #### C VDTBH #### [facility] [address] [place] [address] Dr. David Magana MONO # 0.8 103/ul Normal 0.3-0.8 [facility] Comment on above: Performed By: #### C VDTBH #### [facility] [address] [place] [address] Dr. David Magana Monocytes/100 WBC (Bld) 10.2 % Normal 1.7-12.0 [facility] Comment on above: Performed By: #### C VDTBH #### [facility] [address] [place] [address] Dr. David Magana NEUT # 5.1 103/ul Normal 1.4-6.5 [facility] Comment on above: Performed By: #### C VDTBH #### [facility] [address] [place] [address] Dr. David Magana Neutrophils/100 WBC (Bld) 68.6 % Normal 43.0-75.0 [facility] Comment on above: Performed By: #### C VDTBH #### [facility] [address] [place] [address] Dr. David Magana Platelet mean volume (Bld) [Entitic vol] 11.3 fL Normal 9.5-13.5 [facility] Comment on above: Performed By: #### C VDTBH #### [facility] [address] [place] [address] Dr. David Magana PLT 185 103/ul Normal 150-450 [facility] Comment on above: Performed By: #### C VDTBH #### [facility] [address] [place] [address] Dr. David Magana RBC 4.41 106/ul Critically low 4.70-6.10 [facility] Comment on above: Performed By: #### C VDTBH #### [facility] [address] [place] [address] Dr. David Magana WBC 7.5 103/ul Normal 4.0-11.0 [facility] Comment on above: Performed By: #### C VDTBH #### [facility] [address] [address] [address] David Magana FREE T3on 04-28-2022 FREE T3 2.17 pg/mlL Critically low 2.18-3.98 [facility] Comment on above: Performed By: #### P OCGLUC #### [facility] [address] [address] [address] David Magana LIPID PROFILEon 04-28-2022 CHOL-HDL RATIO NORM SEE BELOW Normal [facility] Comment on above: Result Comment: 3.3 - 4.4 LOW RISK 4.4 - 7.1 AVERAGE RISK 7.1 - 11.0 MODERATE RISK >11.0 HIGH RISK Performed By: #### P OCGLUC #### [facility] [address] [address] [address] David Magana Cholesterol [Mass/Vol] 234 mg/dL Critically high <=200 [facility] Comment on above: Performed By: #### P OCGLUC #### [facility] [address] [address] [address] David Magana Cholesterol in HDL [Mass/Vol] 58 mg/dL Normal 40-60 [facility] Comment on above: Performed By: #### P OCGLUC #### [facility] [address] [address] [address] David Magana Cholesterol in LDL [Mass/Vol] 129.0 mg/dL Normal [facility] Comment on above: Performed By: #### P OCGLUC #### [facility] [address] [address] [address] David Magana Cholesterol.total/Cho lesterol in HDL [Mass ratio] 4.0 {ratio} Normal [facility] Comment on above: Performed By: #### P OCGLUC #### [facility] [address] [address] [address] David Magana HDL NORMAL > or = 60 mg/dl - LOW CARDIOVASCULAR RISK <40 mg/dl - HIGH CARDIOVASCULAR RISK Normal [facility] Comment on above: Performed By: #### P OCGLUC #### [facility] [address] [address] [address] David Magana LDL CALC NORMAL SEE BELOW Normal [facility] Comment on above: Result Comment: <100 mg/dl OPTIMAL 100 - 129 mg/dl NEAR OR ABOVE OPTIMAL 130 - 159 mg/dl BORDERLINE HIGH 160 - 189 mg/dl HIGH >190 mg/dl VERY HIGH Performed By: #### P OCGLUC #### [facility] [address] [address] [address] David Magana Triglyceride [Mass/Vol] 235 mg/dL Critically high <=150 [facility] Comment on above: Performed By: #### P OCGLUC #### [facility] [address] [place] [address] Dr. David Magana VLDL CALC 47.0 mg/dL Normal [facility] Comment on above: Performed By: #### P OCGLUC #### [facility] [address] [place] [address] Dr. David Magana PROF 14(COMP METB)on 022 Albumin [Mass/Vol] 3.2 g/dL Critically low 3.4-5.0 [facility] Comment on above: Performed By: #### P OCGLUC #### [facility] [address] [place] [address] Dr. David Magana Albumin/Globulin [Mass ratio] 0.9 {ratio} Normal [facility] Comment on above: Performed By: #### P OCGLUC #### [facility] [address] [place] [address] Dr. David Magana ALP [Catalytic activity/Vol] 77 U/L Normal 46-116 [facility] Comment on above: Performed By: #### P OCGLUC #### [facility] [address] [place] [address] Dr. David Magana ALT [Catalytic activity/Vol] 24 U/L Normal 16-63 [facility] Comment on above: Performed By: #### P OCGLUC #### [facility] [address] [place] [address] Dr. David Magana Anion gap [Moles/Vol] 13.1 mmol/L Normal [facility] Comment on above: Performed By: #### P OCGLUC #### [facility] [address] [address] [address] David Magana AST [Catalytic activity/Vol] 13 U/L Critically low 15-37 [facility] Comment on above: Performed By: #### P OCGLUC #### [facility] [address] [address] [address] David Magana Bilirubin [Mass/Vol] 0.3 mg/dL Normal 0.2-1.0 [facility] Comment on above: Performed By: #### P OCGLUC #### [facility] [address] [address] [address] David Magana Calcium [Mass/Vol] 8.8 mg/dL Normal 8.5-10.1 [facility] Comment on above: Performed By: #### P OCGLUC #### [facility] [address] [address] [address] David Magana Chloride [Moles/Vol] 106 mmol/L Normal 98-107 [facility] Comment on above: Performed By: #### P OCGLUC #### [facility] [address] [place] [address] Dr. David Magana CO2 [Moles/Vol] 27.5 mmol/L Normal 21.0-32.0 [facility] Comment on above: Performed By: #### P OCGLUC #### [facility] [address] [place] [address] Dr. David Magana Creatinine [Mass/Vol] 1.62 mg/dL Critically high 0.70-1.30 [facility] Comment on above: Performed By: #### P OCGLUC #### [facility] [address] [place] [address] Dr. David Magana EGFR-AF [facility] 50 mL/min/1.73m2 Critically low >=60 [facility] Comment on above: Performed By: #### P OCGLUC #### [facility] [address] [place] [address] Dr. David Magana EGFR-NON AF [facility] 41 mL/min/1.73m2 Critically low >=60 [facility] Comment on above: Performed By: #### P OCGLUC #### [facility] [address] [place] [address] Dr[address] David Magana Globulin (S) [Mass/Vol] 3.4 g/dL Normal [facility] Comment on above: Performed By: #### P OCGLUC #### [facility] [address] [address] [address] David Magana Glucose [Mass/Vol] 206 mg/dL Critically high 74-106 [facility] Comment on above: Performed By: #### P OCGLUC #### [facility] [address] [address] [address] David Magana Potassium [Moles/Vol] 4.6 mmol/L Normal 3.5-5.1 [facility] Comment on above: Performed By: #### P OCGLUC #### [facility] [address] [address] [address] David Magana Protein [Mass/Vol] 6.6 g/dL Normal 6.4-8.2 [facility] Comment on above: Performed By: #### P OCGLUC #### [facility] [address] [place] [address] Dr. David Magana Sodium [Moles/Vol] 142 mmol/L Normal 136-145 [facility] Comment on above: Performed By: #### P OCGLUC #### [facility] [address] [place] [address] Dr. David Magana Urea nitrogen [Mass/Vol] 26.0 mg/dL Critically high 7.0-18.0 [facility] Comment on above: Performed By: #### P OCGLUC #### [facility] [address] [place] [address] Dr. David Magana Urea nitrogen/Creatinine [Mass ratio] 16.0 mg/mg Normal [facility] Comment on above: Performed By: #### P OCGLUC #### [facility] [address] [address] [address] David Magana T4on 04-28-2022 T4 [Mass/Vol] 7.70 ug/dL Normal 4.50-12.10 [facility] Comment on above: Performed By: #### P OCGLUC #### [facility] [address] [address] [address] David Magana TSHon 04-28-2022 TSH 2.187 uIU/mL Normal 0.358-3.740 [facility] Comment on above: Performed By: #### P OCGLUC #### [facility] [address] [address] [address] David Magana TSH RANGE SEE BELOW Normal [facility] Comment on above: Result Comment: <0.3 4 UIU/ml HYPERTHYROID 0.34-5.60 UIU/ml EUTHYROID >5.60 UIU/ml HYPOTHYROID Performed By: #### P OCGLUC #### [facility] [address] [place] [address] Dr. David Magana Vital Signs Date Time Vital Sign Value Performing Clinician Facility 10-14-2023 14:33-0500 Diastolic blood pressure 70 mm[Hg] Nereyda Gomez [facility] 10-14-2023 14:33-0500 Mean blood pressure 93 mm[Hg] Nereyda Joyametz [facility] 10-14-2023 14:33-0500 Systolic blood pressure 138 mm[Hg] Nereyda Joyametz [facility] 10-14-2023 14:18-0500 Blood Pressure Location Nereydabruce JoyaPatricia [facility] 10-14-2023 14:18-0500 Body temperature 97.88 [degF] Nereyda Joyametz [facility] 10-14-2023 14:18-0500 Diastolic blood pressure 73 mm[Hg] Nereyda Joyametz [facility] 10-14-2023 14:18-0500 Heart rate 91 /min Nereyda Patricia [facility] 10-14-2023 14:18-0500 Systolic blood pressure 143 mm[Hg] Nereyda Patricia [facility] 10-01-2023 12:13-0500 Diastolic blood pressure 66 mm[Hg] Nereyda Patricia [facility] 10-01-2023 12:13-0500 Mean blood pressure 104 mm[Hg] Nereyda Patricai [facility] 10-01-2023 12:13-0500 Systolic blood pressure 179 mm[Hg] Nereyda Patricia [facility] 10-01-2023 12:10-0500 Blood Pressure Location Nereyda Patricia [facility] 10-01-2023 12:10-0500 Body temperature 98.42 [degF] Nereyda Patricia [facility] 10-01-2023 12:10-0500 Diastolic blood pressure 77 mm[Hg] Nereyda Patricia [facility] 10-01-2023 12:10-0500 Heart rate 81 /min Nereyda Patricia [facility] 10-01-2023 12:10-0500 Respiratory rate 14 /min Nereyda Patricia [facility] 10-01-2023 12:10-0500 Systolic blood pressure 168 mm[Hg] Nereyda Patricia [facility] 06-10-2023 10:43-0400 Diastolic blood pressure 64 mm[Hg] Nereyda Patricia [facility] 06-10-2023 10:43-0400 Heart rate 76 /min Nereyda Patricia [facility] 06-10-2023 10:43-0400 Respiratory rate 16 /min Nereyda Patricia [facility] 06-10-2023 10:43-0400 SaO2% (BldA) [Mass fraction] 95 % Nereyda Patricia [facility] 06-10-2023 10:43-0400 Systolic blood pressure 121 mm[Hg] Nereyda Patricia [facility] 04-13-2023 14:19-0400 Diastolic blood pressure 70 mm[Hg] Nereyda Patricia [facility] 04-13-2023 14:19-0400 Mean blood pressure 95 mm[Hg] Nereyda Patricia [facility] 04-13-2023 14:19-0400 Systolic blood pressure 146 mm[Hg] Nereyda Patrciia [facility] 04-13-2023 14:15-0400 Blood Pressure Location Nereyda Patricia [facility] 04-13-2023 14:15-0400 Body temperature 97.7 [degF] Nereyda Patricia [facility] 04-13-2023 14:15-0400 Diastolic blood pressure 87 mm[Hg] Nereyda Patricia [facility] 04-13-2023 14:15-0400 Heart rate 70 /min Nereyda Patricia [facility] 04-13-2023 14:15-0400 Systolic blood pressure 150 mm[Hg] Nereyda Patricia [facility] 06-09-2022 10:02-0400 Body temperature 96.98 [degF] Nereyda Gomez [facility] 06-09-2022 10:02-0400 Diastolic blood pressure 75 mm[Hg] Nereyda Donatoz [facility] 06-09-2022 10:02-0400 Heart rate 72 /min Nereyda Gomez [facility] 06-09-2022 10:02-0400 SaO2% (BldA) [Mass fraction] 97 % Nereyda Gomez [facility] 06-09-2022 10:02-0400 Systolic blood pressure 139 mm[Hg] Nereyda Gomez [facility] 05-11-2022 11:30-0400 Diastolic blood pressure 102 mm[Hg] Bender SALAM [facility] 05-11-2022 11:30-0400 Heart rate 86 /min Bender SALAM [facility] 05-11-2022 11:30-0400 Respiratory rate 15 /min Bender SALAM [facility] 05-11-2022 11:30-0400 SaO2% (BldA) [Mass fraction] 95 % Bender SALAM [facility] 05-11-2022 11:30-0400 Systolic blood pressure 172 mm[Hg] Bender SALAM [facility] 05-11-2022 11:15-0400 Diastolic blood pressure 88 mm[Hg] Bender SALAM [facility] 05-11-2022 11:15-0400 Heart rate 86 /min Bender SALAM [facility] 05-11-2022 11:15-0400 Respiratory rate 18 /min Bender SALAM [facility] 05-11-2022 11:15-0400 SaO2% (BldA) [Mass fraction] 97 % Bender SALAM [facility] 05-11-2022 11:15-0400 Systolic blood pressure 170 mm[Hg] Bender SALAM [facility] 05-11-2022 11:10-0400 Diastolic blood pressure 108 mm[Hg] Bender SALAM [facility] 05-11-2022 11:10-0400 Heart rate 85 /min Bender SALAM [facility] 05-11-2022 11:10-0400 Respiratory rate 14 /min Bender SALAM [facility] 05-11-2022 11:10-0400 SaO2% (BldA) [Mass fraction] 97 % Bender SALAM [facility] 05-11-2022 11:10-0400 Systolic blood pressure 157 mm[Hg] Bender SALAM [facility] 05-11-2022 11:02-0400 Body temperature 97.34 [degF] Bender SALAM [facility] 05-11-2022 10:27-0400 Blood Pressure Location Bender SALAM [facility] 05-11-2022 10:23-0400 Blood Pressure Location Napoleon MENDEZ [facility] 05-11-2022 10:23-0400 Body temperature 98.24 [degF] Napoleon MENDEZ [facility] 03-31-2022 09:53-0400 Blood Pressure Location Nereyda Gomez [facility] 03-31-2022 09:53-0400 Body temperature 97.7 [degF] Nereyda Gomez [facility] 03-31-2022 09:53-0400 Diastolic blood pressure 72 mm[Hg] Nereyda Donatoz [facility] 03-31-2022 09:53-0400 Heart rate 73 /min Nereyda Gomez [facility] 03-31-2022 09:53-0400 SaO2% (BldA) [Mass fraction] 96 % Nereyda Gomez [facility] 03-31-2022 09:53-0400 Systolic blood pressure 129 mm[Hg] Nereyda Gomez [facility] Encounters Encounter Date Encounter Type Care Provider Facility Start: 03-03-2024 End: 03-03-2024 ambulatory [facility] Start: 02-10-2024 End: 02-10-2024 ambulatory ROBINSON CHICAS Not Available Start: 02-02-2024 ambulatory Nereyda Cabrera ty:[facility] Start: 01-11-2024 End: 01-11-2024 ambulatory BARRIE FLANNERYBubba Not Available Start: 12-09-2023 ambulatory [facility] Cara [facility] ty[facility] Start: 12-02-2023 End: 12-02-2023 ambulatory ROBINSON CHICAS Not Available Start: 11-17-2023 End: 11-17-2023 ambulatory DANA [facility] Start: 10-14-2023 End: 10-15-2023 ambulatory Nereyda Cara Patricia Facility:[facility] Start: 10-14-2023 End: 10-14-2023 Patient encounter procedure Nereyda A Patricia [facility] Start: 10-01-2023 End: 10-02-2023 ambulatory Nereyda Cara Patricia Facility:[facility] Start: 10-01-2023 End: 10-02-2023 ambulatory Nereyda A Patricia Facility:[facility] Start: 10-01-2023 End: 10-01-2023 Patient encounter procedure Nereyda A Patricia [facility] Start: 10-01-2023 End: 10-01-2023 Patient encounter procedure Nereyda Joyametz [facility] Start: 09-17-2023 End: 09-17-2023 ambulatory [facility] Start: 09-13-2023 End: 09-14-2023 ambulatory Nereyda A Patricia Facility:[facility] Start: 09-13-2023 End: 09-13-2023 Patient encounter procedure Nereyda A Patricia [facility] Start: 08-31-2023 End: 09-01-2023 ambulatory [facility] Start: 07-21-2023 End: 07-21-2023 ambulatory [facility] Start: 06-14-2023 End: 06-14-2023 ambulatory RYDER SCHUYLER [facility] Start: 06-10-2023 End: 06-11-2023 ambulatory Nereyda Gomez Facility:[facility] Start: 06-10-2023 End: 06-10-2023 Patient encounter procedure Nereyda Gomez [facility] Start: 05-24-2023 End: 05-24-2023 ambulatory [facility] Start: 04-15-2023 End: 04-16-2023 ambulatory Nereyda Gomez Facility:[facility] Start: 04-15-2023 End: 04-15-2023 Lab Drop off Nereyda Gomez [facility] Start: 04-13-2023 End: 04-14-2023 ambulatory Nereyda Gomez Facility:[facility] Start: 04-13-2023 End: 04-13-2023 Patient encounter procedure Nereyda Gomez [facility] Start: 04-07-2023 End: 04-07-2023 ambulatory RUTHIE LINDA [facility] Start: 03-24-2023 End: 03-25-[address] RUTHIE [...] End: 06-09-2022 Patient encounter procedure Nereyda Gomez [facility] Start: 06-08-2022 End: 06-09-2022 ambulatory GAMALIEL DALEY Facility:[facility] Start: 05-11-2022 End: 05-11-2022 Patient encounter procedure Napoleon MENDEZ [facility] Start: 04-28-2022 End: 04-29-[address] VAN SUNG . Facility:[facility] Start: 03-31-2022 End: 03-31-2022 Patient encounter procedure Nereyda Gomez [facility] Start: 2019 End: 02-07-2019 Patient encounter procedure DEFAULT PHYSICIAN Facility:[facility] Procedures Date Procedure Procedure [...] Provider Fa cility 10-21-2022 SARS-CoV-2 (COVID-19 ) [id number] Nereyda Gomez [facility] Comment on above: Result Comment: 2022: [id number] 08-26-2021 SARS-CoV-2 (COVID-19 ) mRNA BNT-162b2 vax Nereyda Joyametz [facility] 01-01-2021 SARS-CoV-2 (COVID-19 ) mRNA BNT-162b2 vax Nereydabruce JoyaPatricia [facility] 12-09-2020 SARS-CoV-2 (COVID-19 ) mRNA BNT-162b2 vax Nereyda Joyametz [facility] 08-27-2020 influenza virus vaccine, unspecified formulation Nereyda Joyametz [facility] 08-16-2017 pneumococcal conjugate vaccine, 13 valent Nereyda Joyametz [facility] 08-05-2017 influenza, unspecified formulation Nereydabruce JoyaPatricia [facility] 09-20-2015 zoster vaccine, live [facility] NEGATED: Highlighted row has not occurred!10-13-2023 influenza virus vaccine, unspecified formulation Nereydabruce JoyaPatricia [facility] NEGATED: Highlighted row has not occurred!09-29-2023 influenza virus vaccine, unspecified formulation Nereydabruce JoyaPatricia [facility] Payers Date Payer Category Payer Unknown [id number] 1960 Medicare [id number] 1940 Unknown [id number] 2.16.8 40.1.289361.3.579.2.647 1940 Unknown [id number] 2.16.84 0.1.252075.3.579.2.593 1939 Unknown [id number] 2.16.84 0.1.658581.3.579.2.593 1939 Unknown [id number] 2.16.84 0.1.266707.3.579.2.593 1939 Unknown [id number] 2.16.84 0.1.702685.3.579.2.593 1939 Unknown [id number] 2.16.84 0.1.829726.3.579.2.593 1939 Unknown [id number] 2.16.84 0.1.615957.3.579.2.593 1939 Unknown [id number] 2.16.84 0.1.037205.3.579.2.593 1939 Unknown [id number] 2.16.84 0.1.868015.3.579.2.593 1939 Unknown [id number] 2.16.84 0.1.656910.3.579.2.593 1939 Unknown [id number] 2.16.84 0.1.537458.3.579.2.593 1939 Unknown [id number] 2.16.84 0.1.033232.3.579.2.593 1939 Unknown [id number] 2.16.8 40.1.827493.3.579.2.727 1939 Unknown [id number] 2.16.8 40.1.826379.3.579.2.727 1939 Unknown [id number] 2.16.8 40.1.185063.3.579.2.727 1939 Unknown [id number] 2.16.8 40.1.367257.3.579.2.727 1939 Unknown [id number] 2.16.8 40.1.119126.3.579.2.727 1939 Unknown [id number] 2.16.8 40.1.897046.3.579.2.727 1939 Unknown [id number] 2.16.8 40.1.855554.3.579.2.727 1939 Unknown [id number] 2.16.8 40.1.513297.3.579.2.727 1939 Unknown [id number] 2.16.8 40.1.237055.3.579.2.727 1939 Unknown [id number] 2.16.8 40.1.851051.3.579.2.727 1939 Unknown [id number] 2.16.8 40.1.156274.3.579.2.727 1939 Unknown [id number] 2.16.84 0.1.424402.3.579.2.1259 1939 Unknown [id number] 2.16.84 0.1.449722.3.579.2.1259 1939 Unknown [id number] 2.16.84 0.1.054316.3.579.2.1259 Unknown Social History Date Type Detail Facility Start: 03-31-2022 End: 10-14-2023 Tobacco smoking status Ex-smoker (finding) [facility] Tobacco smoking status Never Fishe [facility] Sex Assigned At Male [facility] Functional Status Date Assessment Result Facility 10-14-2023 Functional Status N/A [facility] 10-01-2023 Functional Status No [facility] 04-13-2023 Functional Status N/A [facility] 06-09-2022 Functional Status N/A [facility] 05-11-2022 Functional Status N/A [facility] Clinical Notes 03-31-2022 to 03-03-2024 Note Date & Type Note Facility 03-03-2024 Note [facility] Subjective Nadir Heredia is a 84 [...] extremity edema. He was admitted to the [facility] in August 2022 due to hyponatremia, hyperkalemia and acute kidney injury, leukocytosis secondary to COVID-19 causing dehydration. I saw him on 05/24/2023 and the office and he had significant evidence of volume overload by exam and echocardiogram. I intensified his diuretic regimen. He ended up getting admitted to the [facility] with acute heart failure exacerbation and [...] Musculoskeletal: General: N (more content not included)... [facility] 11-17-2023 Note Attestation signed by Ruthie Linda MD at 11/21/2023 6:55 PM I saw, interviewed, examined and evaluated the patient with Nephrology fellow, Dr. Dana Aparicio. I participated in the medical management of the patient. I reviewed the fellow's note and agree with the fellow's documentation in the note. Ruthie Linda MD Faculty, Division of Nephrology, Department of Medicine, [facility]. [facility] Patient: Nadir Heredia; 83 y.o. Visit date: 11/17/23 Reason for today's visit: Follow up for CKD stage 3, Hypertension, Edema/ Fluid overload, and Electrolytes disturbances SUBJECTIVE: BACKGROUND: Nadir Heredia is a 83 y.o. male has a past medical history of Atrial fibrillation ([facility]), CHF (congestive heart failure) ([facility]), Chronic kidney disease, COPD (chronic obstructive pulmonary disease) ([facility]), Coronary artery disease, Diabetes mellitus ([facility]), Heart valve disease, Hypertension, Pericardial effusion, and Sleep apnea. History of paroxysmal atrial fibrillation maintained on anticoagulation with Eliquis, aortic stenosis, renal artery stenosis, and hypertension. He had stenting of the left renal artery from the left radial approach on 05/01/2015 (Express SD 6 mm x 18 mm stent). He was admitted to the [facility] in August 2022 due to hyponatremia, [...] place, and time (more content not included)... [facility] 10-14-2023 Hospital Discharge instructions Patient Education 10/14/2023 [...] as fried or sweet foods. These include niuean fries, hamburgers, cookies, candies, and soda. Drink enough fluid to keep your urine pale yellow. General instructions Exercise regularly or as told by your health care provider. Try to do 150 minutes of moderate exercise each week. Use the bathroom when you have the urge to go. Do not hold it in. Take hpcs-rsg-tjcfplg and prescription medicines only as told by [...] to keep your urine pale yellow. Take yrmq-rbz-ivpuiyw and prescription medicines only as told by your health care provider. This includes any fiber supplements. This information is not intended to replace advice given to you by your health care provider. Make sure you discuss any questions you have with your health care provider. Document Revised: 09/18/2020 Document Reviewed: 09/18/2020 [employer] Patient Education 2022 [employer] Follow Up Care 10/01/2023 12:57:46 With:Nereyda Gomez CNP Address: When:1 month [facility] 10-01-2023 Hospital Discharge instructions [...] Bulgur wheat. Millet. Quinoa. Bran muffins. Popcorn. [place] wafer crackers. Meats and other proteins Pax beans, kidney beans, and mendez beans. Soybeans. [...] Cream cheese. Sour cream. Fats and oils [place]. Beverages Soft drinks. Other foods Cakes and [...] provider. Document Revised: 03/06/2021 Document Reviewed: 03/06/2021 [employer] Patient Education 2022 [employer] Follow Up Care 09/20/2023 08:43:45 With:Nereyda Gomez CNP Address:Unknown When: Unknown [facility] 09-17-2023 Note [facility] Subjective Nadir Heredia is a 83 [...] extremity edema. He was admitted to the [facility] in August 2022 due to hyponatremia, hyperkalemia and acute kidney injury, leukocytosis secondary to COVID-19 causing dehydration. I saw him on 05/24/2023 and the office and he had significant evidence of volume overload by exam and echocardiogram. I intensified his diuretic regimen. He ended up getting admitted to the [facility] with acute heart failure exacerbation and [...] Allergies Allergen Reactions Iodinated Contrast Media Nitroglycerin Xktnyjc-Zjo-Isb Reductase Inhibitors Medications Current Outpatient Medications: (more content not included)... [facility] 08-31-2023 Note Patient: Nadir lin Procedure Information Date/Time: 08/31/23 1300 Procedure: TRANSESOPHAGEAL ECHO (MARK) Location: [facility] [...] discussed with patient who. Additional Equipment Requests [facility] 07-21-2023 Note [facility] Subjective Nadir Heredia is a 83 [...] extremity edema. He was admitted to the [facility] in August 2022 due to hyponatremia, hyperkalemia and acute kidney injury, leukocytosis secondary to COVID-19 causing dehydration. I saw him on 05/24/2023 and the office and he had significant evidence of volume overload by exam and echocardiogram. I intensified his diuretic regimen. He ended up getting admitted to the [facility] with acute heart failure exacerbation and [...] Allergies Allergen Reactions Iodinated Contrast Media Nitroglycerin Iowijhg-Moa-Tvb Reductase Inhibitors Medications Current Outpatient Medications: acyclovir [...] every day by (more content not included)... [facility] 06-14-2023 Note BMP script sent [facility] 06-14-2023 Note Coronary artery dise ase is stable Continue GDMT- ASA, labetalol, zetia continue risk factor modifications- heart healthy diet, regular exercise as tolerated and continue all medications. [facility] 06-14-2023 Note stable [facility] 06-14-2023 Note Recent echo 05/2023 w ith noted mod AO stenosis [facility] 06-14-2023 Note [facility] CARDIOLOGY PROGR ESS NOTE HPI: Nadir Heredia is a 83 y.o. male here for hospital f/U after admit to [facility] for resp failure, and acute heart failure exacerbation. Recent admit to [facility] for shortness of breath, acute HFpEF [...] Allergies Allergen Reactions Iodinated Contrast Media Nitroglycerin Npiburm-Brz-Qqt Reductase Inhibitors Medications: Current Outpatient Medications on [...] diastolic heart failure (CMS/HCC) Recent admit to [facility] for shortness of breath, acute HFpEF with ARTUR. BNP 3311, BUN 26, CR 1.5-1.9, LFT normal, K+ normal. Troponin level negative. CXR showed vascular congestion Pt was admitted and diuresed as inpt. [facility] Continue GDMT- remains on jardiance and lasix 60 mg daily for diuresis Monitor daily weights, I&O, fluid restriction 1.5 (more content not included)... [facility] 06-14-2023 Note Patient here for [facility] for CHF. Dr. Sung gave him a few days of spironolactone to help with SOB. This did not help so he went to [facility] ED. He was diuresed with IV lasix. Says his breathing and LE edema are much better. Denies chest pain, lightheadedness, palpitations, and bleeding on Eliquis. Review of Systems Cardiovascular: Positive for dyspnea on exertion (improving) and leg swelling (improving). Hematologic/Lymphatic: Bruises/bleeds easily. Neurological: Positive for loss of balance. All other systems reviewed and are negative. [facility] 06-14-2023 Note Recent admit to [facility] for shortness of breath, acute HFpEF [...] provided pt is also seeing PCP today [facility] 06-10-2023 Hospital Discharge instructions Patient Education 06/10/2023 [...] hard liquor (44 mL). General instructions Take ljmp-uvo-fyxgqux and prescription medicines only as told by [...] provider. Document Revised: 02/19/2021 Document Reviewed: 02/19/2021 [employer] Patient Education 2022 [employer] Follow Up Care 04/13/2023 14:39:27 With:Nereyda Gomez CNP Address: When:3 months [facility] 05-24-2023 Note [facility] Subjective Nadir Heredia is a 83 [...] extremity edema. He was admitted to the [facility] in August 2022 due to hyponatremia, [...] Allergies Allergen Reactions Iodinated Contrast Media Nitroglycerin Zznbnfl-Lpq-Htm Reductase Inhibitors Medications Current Outpatient Medications: acyclovir [...] , Rfl: ergocalciferol (Vitamin D-2) 1.25 MG (50296 Units) capsule, Take 1 capsule (50,000 Units) by mouth 1 (one) time per week., Disp: 8 capsule, Rfl: 0 ezetimibe (Zetia) 10 (more content not included)... [facility] 04-13-2023 Hospital Discharge instructions Patient Education 04/13/2023 [...] including vitamins, herbs, eye drops, creams, and lzds-lfw-aawuhvi medicines. Any problems you or family members [...] provider tells you to take them. Taking kunp-jnx-yijruag medicines, vitamins, herbs, and supplements. General instructions [...] provider. Document Revised: 10/26/2022 Document Reviewed: 06/24/2022 [employer] Patient Education 2022 [employer] Follow Up Care 04/09/2023 11:27:16 With:Patricia BRITT Nereyda Cara Address: When:1 month [facility] 04-13-2023 Note Radiology Colonoscopy, [...] including vitamins, herbs, eye drops, creams, and idqv-lyy-tksqial medicines. ? Any problems you or family [...] tells you to take them. ? Taking gzni-lif-vhcgdal medicines, vitamins, herbs, and supplements. General instructions [...] for cancer cells. (more content not included)... [facility] 04-07-2023 Note Nephrology Clinic Patient: Nadir Heredia; 83 y.o. Visit date: 04/07/23 Reason for today's visit: Follow up for CKD stage 3, Hypertension, and Edema/ Fluid overload SUBJECTIVE: History Of Present Illness: HISTORICAL: 10/23/2015: Here for FU from the hospital. He was first admitted to [facility] with weight gain and so he [...] back & is being treated by a director operating room. He reports feeling short of breath on [...] is 83 year (more content not included)... [facility] 07-18-2022 Note EXAM: US CHANI DOP LEG [...] authenticated by: LI ROBERTS Date: 2022-07-18 09:05 [facility] 06-09-2022 Hospital Discharge instructions Patient Education [...] per serving. Talk with a diet and food and nutrition supervisor (dietitian) if you have questions about specific [...] Bulgur wheat. Millet. Quinoa. Bran muffins. Popcorn. [place] wafer crackers. Meats and other proteins Pax, kidney, and mendez beans. Soybeans. Split peas. [...] Cream cheese. Sour cream. Fats and oils [place]. Beverages Soft drinks. Other foods Cakes and [...] 11/01/2006 Document Revised: 09/05/2018 Document Reviewed: 09/05/2018 [employer] Patient Education 2020 [employer]. 06/09/2022 10:13:34 Hemorrhoids Hemorrhoids Hemorrhoids are swollen [...] 3 times a day. General instructions Take ouwd-adm-pxufewd and prescription medicines only as told by [...] 10/29/2001 Document Revised: 03/29/2020 Document Reviewed: 03/23/2019 [employer] Patient Education 2020 [employer] 06/09/2022 10:13:31 Diverticulosis Diverticulosis Diverticulosis is [...] overweight. Not getting enough exercise. Smoking. Taking gxar-lmw-wjmiiyc pain medicines, like aspirin and ibuprofen. Having [...] health care provider or your diet and food and nutrition supervisor (dietitian). ?Take a fiber supplement or probiotic, if your health care provider approves. Take zduv-boq-nqmdvuv and prescription medicines only as told by [...] 07/29/2005 Document Revised: 10/14/2018 Document Reviewed: 09/20/2017 [employer] Patient Education 2020 [employer]. 06/09/2022 10:13:30 Colon Polyps Colon Polyps Polyps [...] 07/28/2005 Document Revised: 02/16/2019 Document Reviewed: 02/16/2019 [employer] Patient Education 2019 [employer]. Follow Up Care 05/13/2022 14:18:17 With:Nereyda Gomez CNP Address: When:1 year only if needed [facility] 05-11-2022 Evaluation + Plan note Extrac fernando from: Title:Anesthesia post op endo Author:Jeffrey Gr MD Date:05/11/22 Plan Transfer/ Discharge: Patient can be discharged from PACU when criteria met. Condition good. Extracted from: Title:Anesthesia Pre-Op endo 2 Author:Jeffrey Gr MD Date:05/11/[address] [place] [employer] Anesthesi[employer] (ASA) physical status classification: [...] heart and lungs, allergic reactions, and .. [facility]06-27-2022 Hospital Discharge instructions Patient Education 05/11/2022 11:13:39 Colonoscopy, Care After Surgery Salam (CUSTOM) Colonoscopy Care After Surgery Please read the instructions outlined below and refer to this sheet in the next few weeks. These discharge instructions provide you with general information on caring for yourself [facility] Your doctor may also give you [...] 07/28/2005 Document Revised: 02/16/2019 Document Reviewed: 02/16/2019 [employer] Patient Education 2020 [employer]. 05/11/2022 11:13:39 Diverticulosis MAGR (CUSTOM) Diverticulosis Many [...] unsweetened, w/added ascorbic acid 1 cup 0.5 Register 1 cup 0.7 Vegetables Cooked Green beans 1 cup 4.0 Carrots 1/2 cup sliced 2.3 Peas 1 cup 8.8 Potato (baked, with skin) 1 medium potato 3.8 Raw [place] (with peel) 1 cucumber 1.5 Lettuce 1 [...] 8.7 Peanuts 1/2 cup 7.9 Chart from [facility] 2013. SEEK IMMEDIATE MEDICAL CARE IF: You [...] Reference. Available at http://www.nal.usda.gov/fnic/foodcomp/search/. Information adapted from: [facility] Patient Information 2009 [employer] [facility]. [facility] [email or web address] Follow Up Care 03/31/2022 10:27:32 With:Napoleon MENDEZ Address: [address] [place] [address] Business (1) When: Unknown Comments:office will call for follow up [facility]05-17-2022 Hospital Discharge instructions Patient Education 03/31/2022 09:58:01 [...] including vitamins, herbs, eye drops, creams, and rvyi-eer-edabgbv medicines. Any problems you or family members [...] 10/29/2001 Document Revised: 08/24/2018 Document Reviewed: 01/12/2017 [employer] Patient Education 2020 [employer]. Follow Up Care 03/23/2022 12:11:50 With:Nereyda Gomez CNP Address: When:1 month [facility] Evaluation + Plan note Future Appointments Appointment Date:05/25/2022 08:45:00 AM Scheduled Provider: Location:[facility] Appointment Type:[facility] Evaluation + Plan note Future Appointments Appointment Date:06/10/2023 10:40:00 AM Scheduled Provider:Nereyda Gomez CNP Location:[facility] Appointment Type:[facility] Follow Up Future Scheduled Tests Laboratory* Fecal WBC Lactoferrin 04/13/23 * Giardia lamblia, Direct Detection EIA 04/13/23 * O & P Exam, Routine 04/13/23 * Clostridium Difficile PCR 04/13/23 * Enteric Panel by PCR 04/13/23 [facility] Evaluation + Plan note Future Appointments Appointment Date:06/10/2023 10:40:00 AM Scheduled Provider:Nereyda Gomez CNP Location:[facility] Appointment Type:[facility] Follow Up Diagnostic Tests Pending * O & P Exam, Routine 04/15/23 * Giardia lamblia, Direct Detection EIA 04/15/23 [facility] Future Appointments Appointment Date:09/13/2023 10:40:00 AM Scheduled Provider:Nereyda Gomez CNP Location:[facility] Appointment Type:[facility] Follow Up [facility] Evaluation + Plan note Future Appointments Appointment Date:10/14/2023 02:20:00 PM Scheduled Provider:Nereyda Gomez CNP Location:[facility] Appointment Type:[facility] Follow Up Future Scheduled Tests Laboratory* CBC w/ Auto Diff 10/01/23 * Comprehensive Metabolic Panel 10/01/23 * Thyroid Stimulating Hormone 10/01/23 [facility] Evaluation + Plan note Future Appointments Appointment Date:12/09/2023 02:00:00 PM Scheduled Provider:Nereyda Gomez CNP Location:[facility] Appointment Type:[facility] Follow Up Future Scheduled Tests Laboratory* CBC w/ Auto Diff 10/01/23 * Comprehensive Metabolic Panel 10/01/23 * Thyroid Stimulating Hormone 10/01/23 [facility] Hospital course Narrative No data available for this section [facility] Hospital Discharge instructions No data available for this section [facility] No data available for this section [facility] Summary Purpose Family History No Family History [...] section and content) DATE CREATED AUTHOR 02/09/2019 [facility] DATE CREATED AUTHOR AUTHOR'S ORGANIZ ATION 03/28/2023 [facility] DATE CREATED AUTHOR AUTHOR'S ORGANIZ ATION 01/24/2024 [facility] DATE CREATED AUTHOR AUTHOR'S ORGANIZ ATION 02/11/2024 [facility] EPIC DATE CREATED AUTHOR AUTHOR'S ORGANIZ ATION 03/04/2024 [facility] Care Team (unrecognized sect ion and content) Personnel Name: Van Sung MD Address: [address] [place] [address] Personnel Name: Van Sung MD Address: [address] [place] [address] Personnel Name: Van Sung MD Address: Address: [address] [place] [address] Personnel Name: Van Sung MD Address: Address: [address] [place] [address] Personnel Name: Van Sung MD Address: Address: [address] [place] [address] Personnel Name: Van Sung MD Address: Address: [address] [place] [address] Personnel Name: Van Sung MD Address: Address: [address] [place] [address] Personnel Name: Van Sung MD Address: Address: [address] [place] [address] Personnel Name: Van Sung MD Address: Address: [address] [place] [address] Personnel Name: Van Sung MD Address: Address: [address] [place] [address] FOR RECORDS PERTAINING TO PATIENTS WHO ARE [...] BE BASED ON THE PRIMARY CLINICAL RECORDS. [facility]. provides no warranty or guarantee of the accuracy or completeness of information in this document.
[2024-03-17 10:41] LABS: Estimated Average Glucose 160 mg/dL; Glycohemoglobin A1C 7.2 % (4.5-6.2)
[2024-03-17 10:42] LABS: Basophils Percent Auto 0.4 % (0.2-2.0); Eosinophils Absolute Auto 0.2 10^3/uL (0.0-0.7); Eosinophils Percent Auto 3.1 % (0.9-7.0); Hematocrit 45.8 % (42.0-54.0); Immature Granulocytes Abs Auto 0.02 10^3/uL (0.00-0.03); Immature Granulocytes Pct Auto 0.3 % (0.0-0.5); Lymphocytes Absolute Auto 0.8 10^3/uL (1.2-3.8); Lymphocytes Percent Auto 10.8 % (20.5-60.0); Mean Corpuscular HGB Conc 32.8 g/dL (29.9-35.2); Mean Corpuscular Hemoglobin 33.6 pg (25.9-34.0); Mean Corpuscular Volume 102.7 fL (80.0-94.0); Mean Platelet Volume 11.5 fL (9.5-13.5); Monocytes Absolute Auto 0.7 10^3/uL (0.3-0.8); Monocytes Percent Auto 9.2 % (1.7-12.0); Neutrophils Absolute Auto 5.9 10^3/uL (1.4-6.5); Neutrophils Percent Auto 76.2 % (43.0-75.0); Platelet Count 187 10^3/uL (150-450); Red Blood Count 4.46 10^6/uL (4.70-6.10); Red Cell Distribution Width 13.8 % (11.0-15.0); White Blood Count 7.7 10^3/uL (4.0-11.0)
[2024-03-17 10:53] LABS: Alanine Aminotransferase 29 U/L (16-63); Albumin Level 3.5 g/dL (3.4-5.0); Alkaline Phosphatase 97 U/L (46-116); Anion Gap 13.2; Aspartate Amino Transferase 17 U/L (15-37); Bilirubin Total 0.5 mg/dL (0.2-1.0); Calcium 9.8 mg/dL (8.5-10.1); Chloride 104 mmol/L (98-107); Chol HDL Ratio 2.9; Cholesterol 232 mg/dL (<=200); Estimated GFR (African America >60 (>=60); Estimated GFR (Non-African Ame 50 (>=60); Globulin 3.4 g/dL; Glucose 182 mg/dL (74-106); HDL Cholesterol 81 mg/dL (40-60); Potassium 4.2 mmol/L (3.5-5.1); Sodium 142 mmol/L (136-145); Thyroid Stimulating Hormone 1.736 uIU/mL (0.358-3.740); Total Protein 6.9 g/dL (6.4-8.2); Triglycerides 72 mg/dL (<=150); VLDL CHOLESTEROL 14.4 mg/dL
[2024-03-17 11:40] LABS: Free T4 1.02 ng/dL (0.76-1.46)
[2024-03-18 04:08] LABS: PSA, Free 0.84 ng/mL; Prostate Specific Ag 2.6 ng/mL (0.0-4.0)
== END 2024-03-17 09:43 | disposition home or self-care (01) ==
LOC: LAB 09:42
PROVIDERS: PCP Family Medicine; Visit Provider Family Medicine
DX: E78.5 Hyperlipidemia, unspecified (principal); Z12.11 Encounter for screening for malignant neoplasm of colon; R53.83 Other fatigue; I10 Essential (primary) hypertension; Z12.5 Encounter for screening for malignant neoplasm of prostate; E11.9 Type 2 diabetes mellitus without complications
CPT/HCPCS: 36415; 80053; 80061; 83036; 84153; 84154; 84439; 84443; 84481; 85025

== ENCOUNTER 2024-04-03 10:07 | Outpatient (OUT) | payer MEDICARE, SELFPAY ==
--- OUTSIDE RECORDS SUMMARY | 2024-04-03 10:20 | XMS_ITS | CCD ---
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 Care Quality Tech Name Role Phone PHYSICIAN, DEFAULT Admitting Unavailable PHYSICIAN, DEFAULT Attending Unavailable VAN SUNG Primary Care Unavailable Van Sung Primary Care Physician JANETY ., DR ARAUJO Primary Care Unavailable HOY ., DR ARAUJO Consulting Unavailable HOY ., DR ARAUJO Attending Unavailable HOY ., DR ARAUJO Admitting Unavailable ZIEBER, DR CLOVER Zimmer Consulting Unavailable LA POSTA, DR CRAMER Consulting Unavailable HOY ., DR ARAUJO Primary Care Unavailable LA POSTA, DR CRAMER Attending Unavailable LA POSTA, DR CRAMER Admitting Unavailable LA POSTA, DR CRAMER Consulting Unavailable HOY ., DR ARAUJO Primary Care Unavailable LA POSTA, DR CRAMER Attending Unavailable LA POSTA, DR CRAMER Admitting Unavailable HOY ., DR ARAUJO Consulting Unavailable HOY ., DR ARAUJO Primary Care Unavailable HOY ., DR ARAUJO Attending Unavailable HOY ., DR ARAUJO Admitting Unavailable LA POSTA, DR CRAMER Consulting Unavailable HOY ., DR ARAUJO Primary Care Unavailable LA POSTA, DR CRAMER Attending Unavailable LA POSTA, DR CRAMER Admitting Unavailable HOY ., DR [...] Gil Attending Unavailable ROBINSON CHICAS Attending Unavailable RUTHIE LINDA Attending Unavailable MOUKARBFABRIZIO, CLARIBEL Attending Unavailable MOUKARBEL, CLARIBEL Attending Unavailable SCHUYLERRYDER Almodovar Attending Unavailable MOUKARBEL, CLARIBEL Attending Unavailable MOUKARBEL, CLARIBEL Attending Unavailable DANA APARICIO Attending Unavailable MOUKAGIANNI, CLARIBEL Referring Unavailable Allergies Allergy Classification Reported Allergen(s) Allergy Type Date of Onset Reaction(s) Facility (14 sources) Aminolevulinic Acid; 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: [aminolevulinic acid] Drug Allergy 11-04-20 13 Unknown [facility] (1 source) NITRO PATCH; 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: [NITRO PATCH] Propensity to adverse reactions (disorder) 03-18-20 12 [facility] (12 sources) Contrast media; 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: [Contrast Dye] Drug allergy Unknown (qualifier value) [facility] (12 sources) Hmg-Coa Reductase Inhibitors (Statins); 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: [statins] Allergy to substance Unknown [facility] (20 sources) Nitroglycerin; 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: [nitroglycerin] Drug Allergy 02-23-20 Unknown (qualifier value) [facility] (2 sources) black walnut pollen extract; 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: [JCPGIFJ-KXT-XRZ REDUCTASE INHIBITORS] Drug Allergy 04-21-20 17 [facility] (1 source) Iodine (And Iodine Containting Drugs) Drug allergy (disorder) 05-28-20 16 [facility] (1 source) Aminolevulinic Acid; 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: [aminolevulinic acid] Drug Allergy 11-04-20 13 [facility] Repository (1 source) Nitroglycerin; 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: [Nitroglycerin Patch] Drug Allergy [facility] Repository (1 source) IODINATED CONTRAST MEDIA; 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: [IODINATED CONTRAST MEDIA] Propensity to adverse reactions to drug (disorder) 07-17-20 [facility] Medications Current Medications Medication Drug Class(es) [...] day(s), # 90 cap(s), Refills(s) 0, Pharmacy: [facility]/pharmacy #[id number], 185, cm, 06/10/23 10:45:00 EDT, Height/Length Dosing, 97, kg, 06/10/23 10:45:00 EDT, Weight Dosing Start Date: 06/10/23 Stop Date: 09/08/23 Status: Ordered Start: 08-28-2020 take 1 capsule by mo uth once daily Align 4 mg oral capsule 4 mg = 1 cap(s), Oral, Daily, Take after completing the Antibiotics course, # 28 cap(s), Refills(s) 0, [id number] 185, cm, 08/28/20 12:05:00 EDT, [...] Daily Prior to colonoscopy Per physician's instructions, [facility]/pharmacy #[id number], 185, cm, 03/31/22 9:58:00 EDT, Height/Length [...] Date: 01/09/19 Status: Ordered 60 actuat tiotropium 0.57738 mg/actuat inhalation spray (10 sources) Anticholinergic Start: [...] water, # 160 cap(s), Refills(s) 1, Pharmacy: [facility]/pharmacy #[id number], 185, cm, 08/28/20 12:05:00 EDT, Height/Length [...] disease (2 sources) Atherosclerotic heart disease of [place] coronary artery without angina pectoris; 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: [Atherosclerotic heart disease of [place] coronary artery without angina pectoris] Onset: 07-17-2022 [...] Episodic Pulmonary heart disease (4 sources) 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 disease; 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: [Pulmonary hypertension, unspecified] Onset: 10-05-2022 Chronic Residual codes; unclassified (1 [...] fibrillation; 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: [Longstanding persistent atrial fibrillation] Onset: 03-03-2024 Unclassified (1 source) Other pericardial effusion (noninflammatory); [...] Onset: 04-30-2022 Episodic Other aftercare (1 source) 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; 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] Onset: 08-27-2022 Episodic Other aftercare (1 source) long-term (current) use of anticoagulants; 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: [BEATER ROOM SUPERVISOR CURRNT USE ANTICOAGULANTS] Onset: 08-27-2022 Episodic Other aftercare (1 source) Other mcfp (current) drug therapy; 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: [OTH BEATER ROOM SUPERVISOR CURRENT DRUG THERAPY] Onset: 08-27-2022 Episodic Other [...] (noninflammatory); 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: [Other pericardial effusion (noninflammatory)] Onset: 03-03-2024 Urinary tract infections (1 source) Urinary tract infection, site not specified; 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: [UTI SITE NOT SPECIFIED] Onset: 08-27-2022 Episodic Results Test Name Value Interpretation Reference Range Facility Orders Onlyon 03-21-2024 Orders Only [id number] Nadir Heredia 1940 M Date Provider Department Center 03/21/2024 LUCRETIA BENZ [facility] Family History Problem Relation Age of Onset Coronary artery disease Father Family Status - Relation Status Age at Father [facility] Office Visiton 03-03-2024 Follow-up visit [id number] Steen 1940 M Date Provider Department Center 03/03/2024 CLARIBEL VILLALOBOS [facility] Family History Problem Relation Age of Onset Coronary artery disease Father Family Status - Relation Status Age at Father Level of Service:35507 [place] OFFICE/OUTPATIENT ESTABLISHED MOD MDM 30 MIN Reason for Visit and Comments: Follow-up [[id number]] [facility] 36on 12-29-2023 36 Called and spoke with patient and rescheduled patients appointment from 05/31 to 06/07. [facility] 36on 12-28-2023 36 Called patient lvm to contact the office back to reschedule appointment. [facility] Follow-Upon 11-17-2023 Follow-Up [id number] Steen 1940 M Date Provider Department Center 11/17/2023 RUTHIE OWEN [facility] NEPHRO Comprehensiv Family History Problem Relation Age of Onset Coronary artery disease Father Family Status - Relation Status Age at Father Level of Service:38613 [place] OFFICE/OUTPATIENT ESTABLISHED MOD MDM 30 MIN () Reason for Visit and Comments: Follow-up [839797] Chronic Kidney Disease [176] [facility] Lab Reportson 10-21-2023 Lab Reports [id number] #1.00TIFF [facility] Gastroenterology Office/Clin ic Noteon 10-18-2023 Gastroenterology [...] fiber supplem (more content not included)... Normal [facility] Comment on above: Result Comment: Elec tronically Signed By: Patricia BRITT, Nereyda Marroquin\.mary\Date and Time Signed: 12/04/23 11:30 EST Ambulatory Visit Summaryon 1 12-14-2022 [...] EST With: Nereyda Gomez CNP Where: [facility] Normal [facility] Patient Educationon 10-14-20 23 Patient Education Gastroenterology [...] as fried or sweet foods. These include bolivian fries, hamburgers, cookies, candies, and soda. ? Drink enough fluid to keep your urine pale yellow. General instructions ? Exercise regularly or as told by your health care provider. Try to do 150 minutes of moderate exercise each week. ? Use the bathroom when you have the urge to go. Do not hold it in. ? Take uvff-nun-xbbqrvj and prescription medicines only as told by [...] keep your urine pale yellow. ? Take hzsc-gnl-jvrwelz and prescription medicines only as told by your health care provider. This includes any fiber supplements. This information is not intended to replace advice given to you by your health care provider. Make sure you discuss any questions you have with your health care provider. 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 [facility] 36on 10-12-2023 36 Patient called to make you aware that he was in [facility] ED on (Wednesday) for SOB. He wanted you to look over his records. I have uploaded them all into his vp emerging media for your review. His BNP is increased to 4000 and was previously 2600 about 1 month ago. Looks like they gave him extra lasix in the ED and recommended he follow up with Dr. Sung outpatient. Can you please review and let me know if you'd like anything done/ordered? Thanks. [facility] [place] XR Abdomen 2 Viewson 023 XR Abdomen [...] Signed by: Marc Colmenares M.D. Transcribed by: MRAII Technologist: EDUARDA Technical Comments Radiation Dose: levi Lazar in mGy = . DAP = . Normal [facility] Lab Reportson 10-04-2023 Lab Reports [id number] 1#1.00TIFF Normal [facility] RAD - MISCon 10-04-2023 RAD - MISC [id number] #1.00TIFF Normal [facility] Ambulatory Visit Summaryon 12-01-2022 Ambulatory Visit Summary NADIR HEREDIA :1940 [...] EST With: Nereyda Gomez CNP Where: [facility] Invalid Interpretation Code Abdominal cramping [facility] Consent for Treatmenton 09-15 Consent for Treatment [id number] #1.00TIFF Normal [facility] Gastroenterology Office/Clin ic Noteon 10-01-2023 Gastroenterology Office/Clinic [...] educated t (more content not included)... Normal [facility] Comment on above: Result Comment: Elec tronically [...] Bulgur wheat. Millet. Quinoa. Bran muffins. Popcorn. [place] wafer crackers. Meats and other proteins Deming beans, kidney beans, and mendez beans. Soybeans. [...] Cream cheese. Sour cream. Fats and oils [place]. Beverages Soft drinks. Other foods Cakes and [...] provider. Document Revised: (more content not included)... [facility] 36on 09-20-2023 36 Called and spoke with and rescheduled appointment and informed her patient would need to get labs done. [facility] 36 Patients called in to reschedule appointment from 09/08 [facility] Office Visiton 09-17-2023 Follow-up visit [id number] Nadir Heredia 1940 M Date Provider Department Center 09/17/2023 CLARIBEL VILLALOBOS [facility] Family History Problem Relation Age of Onset Coronary artery disease Father Family Status - Relation Status Age at Father Level of Service:19164 [place] OFFICE/OUTPATIENT ESTABLISHED MOD [facility] 30-39 MIN Reason for Visit and Comments: Follow-up [260924] [facility] HPon 08-31-2023 [facility] Cardiology [facility] Subjective Nadiradelaide Heredia is a 83 y.o. year old [...] extremity edema. He was admitted to the [facility] in August 2022 due to hyponatremia, hyperkalemia and acute kidney injury, leukocytosis secondary to COVID-19 causing dehydration. I saw him on 05/24/2023 and the office and he had significant evidence of volume overload by exam and echocardiogram. I intensified his diuretic regimen. He ended up getting admitted to the [facility] with acute heart failure exacerbation and underwent [...] Allergies Allergen Reactions Iodinated Contrast Media Nitroglycerin Xjanunt-Src-Jmk Reductase Inhibitors Medications Current Outpatient Medications: acyclovir [...] Take 1 ta (more content not included)... [facility] NURSNOTEon 08-31-2023 NURSNOTE Pt performed and passed bedside swallow study. RN educated pt on d/c instructions. RN encouraged pt to voice any questions or concerns. Pt verbalizes no questions or concerns at this time. Pt was wheeled off of unit with all of belongings. [facility] Telephoneon 08-24-2023 Telephone [id number] Nadir Heredia 1940 M Date Provider Department Center 08/24/2023 RABIA KONG [facility] Family History Problem Relation Age of Onset Coronary artery disease Father Family Status - Relation Status Age at Father [facility] Office Visiton 07-21-2023 Follow-up visit [id number] Nadir Heredia 1940 M Date Provider Department [place] 07/21/2023 Parris-CLARIBEL PUGA MILKA [facility] Family History Problem Relation Age of Onset Coronary artery disease Father Family Status - Relation Status Age at Father Level of Service:18781 [place] OFFICE/OUTPATIENT ESTABLISHED MOD MDM 30-39 MIN Reason for Visit and Comments: Follow-up [758298] [facility] Office Visiton 06-14-2023 Follow-up visit [id number] Nadir Heredia 1940 M Date Provider Department Center 06/14/2023 RYDER RODRÍGUEZ MILKA [facility] Family History Problem Relation Age of Onset Coronary artery disease Father Family Status - Relation Status Age at Father Level of Service:67337 [place] OFFICE/OUTPATIENT ESTABLISHED MOD MDM 30-39 MIN [facility] Ambulatory Visit Summaryon 0 06-10-2023 Ambulatory Visit Summary NADIR HEREDIA :1940 Visit Date:06/10/2023 Ambulatory Visit Instructions Your Diagnosis Loose stools Gas pain Fecal urgency History of colon polyps Family history of colon cancer Your Care Team Attending Physician - Patricia BRITT, Nereyda A Primary Care Physician - Van Sung MD [...] EDT With: Nereyda Gomez CNP Where: [facility] Normal [facility] Gastroenterology Office/Clin ic Noteon 06-10-2023 Gastroenterology Office/Clinic Note HPI Staff Nadir is an 83 y.o. male here for 2 month follow up He continues with intermittent diarrhea. He states he's been able to hold stool until reaches bathroom. He states he has terrible gas recently hospitalized at [facility] for heart failure He continues with [...] day(s), # 90 cap(s), Refills(s) 0, [facility] (more content not included)... Normal [facility] Comment on above: Result Comment: Elec tronically Signed By: Nereyda Gomez CNP\.mary\Date and Time Signed: 06/10/23 11:02 EDT Patient [...] liquor (44 mL). General instructions ? Take pcat-cvd-poywejl and prescription medicines only as told by [...] 02/19/2021 D (more content not included)... Normal [facility] Office Visiton 05-24-2023 Follow-up visit [id number] Nadir Heredia 1940 M Date Provider Department Center 05/24/2023 CLARIBEL VILLALOBOS C[facility] Family History Problem Relation Age of Onset Coronary artery disease Father Family Status - Relation Status Age at Father Level of Service:81070 [place] OFFICE/OUTPATIENT ESTABLISHED MOD MDM 30-39 MIN Normal [place] Giardia, Direct, EIAon 04-22 G. lamblia Ag IA Ql (Stl) Negative Invalid Interpretation Code Negative [facility] Comment on above: Result Comment: Perf ormed at: [address] [id number] PhD Huan Vyas Performed By: #### 3 [id number], [id number], [id number], [id number], [id number], [id number] ####[facility] [address] [place] [address] O & P EXAM, ROUTINE, REFLEXo n 04-22-2023 Ova and parasites identified Concentration Nom (Stl) Comment Invalid Interpretation Code [facility] Comment on above: Result Comment: No o va, cysts, or parasites seen. One negative specimen does not rule out the possibility of a parasitic infection. Performed at: [address] [id number] PhD Huan Vyas Performed By: #### 3 [id number], [id number], [id number], [id number], [id number], [id number] ####[facility] [address] [place] [address] O & P Exam, Routineon 2022 Ova and parasites identified LM Nom (Unsp spec) Final report Invalid Interpretation Code [facility] Comment on above: Result Comment: Thes e results were obtained using wet preparation(s) and trichrome stained smear. This test does not include testing for Cryptosporidium parvum, Cyclospora, or Microsporidia. Performed at: [facility] [address] [place], [place] [id number] PhD Huan Vyas Performed By: #### 3 [id number], [id number], [id number], [id number], [id number], [id number] ####[facility] [address] [place] [address] CDiff PCRon 04-15-2023 CDiff PCR Unable to perform test due to consistency of stool. C. Difficile testing will only be performed on diarrheal (unformed) stool unless ileus due to C. difficile is expected. Reference: Clinical Practice Guidelines for Clostridium difficile Infection in Adults, Infection and Hospital Epidemiology March 2010, Vol 31, No 5. Normal [facility] Cdiff Specimen Acceptable Unacceptable Normal [facility] Comment on above: Performed By: #### 3 [id number], [id number], [id number], [id number], [id number], [id number] ####[facility] [address] [place] [address] Order Cancelled YES Normal [facility] Comment on above: Performed By: #### 3 [id number], [id number], [id number], [id number], [id number], [id number] ####[facility] [address] [place] [address] Enteric Panel by PCRon 04-15 C. coli+jejuni+upsaliens is DNA SULTANA+non-probe Ql (Stl) Not detected Normal [facility] Comment on above: Result Comment: Test ing was performed utilizing reverse lead pharmacy technician (RT), polymerase chain reaction (PCR), and array [...] nulcleic acid test. Performed By: #### 3 [id number], 45321723, [id number], 78198411, [id number], 34247741 ####[facility] [address] [place] [address] E. coli stx1+stx2 genes SULTANA+non-probe Ql (Stl) Negative Normal [facility] Comment on above: Performed By: #### 3 [id number], 04684852, [id number], 91206467, [id number], 77043596 ####[facility] [address] [place] [address] Enteric Panel by PCR Negative Normal [facility] Enteric Panel Intrl QC Pass Normal [facility] Comment on above: Result Comment: Test ing was performed utilizing reverse lead pharmacy technician (RT), polymerase chain reaction (PCR), and array [...] 1 and 2. Performed By: #### 3 [id number], 91907203, [id number], 69222243, [id number], [id number] ####[facility] [address] [place] [address] Norovirus genogroup I+II RNA SULTANA+non-probe Ql (Stl) Not detected Normal [facility] Comment on above: Performed By: #### 3 4974738, 13560346, [id number], 10910463, [id number], [id number] ####[facility] [address] [place] [address] Rotavirus A RNA SULTANA+non-probe Ql (Stl) Not detected Normal [facility] Comment on above: Performed By: #### 3 9473798, 83968157, [id number], 20784918, [id number], 77160856 ####[facility] [address] [place] [address] S. enterica+bongori DNA SULATNA+non-probe Ql (Stl) Not detected Normal [facility] Comment on above: Result Comment: This test result should be correlated with clinical presentations and medical history by a healthcare provider to determine its clinical significance. Performed By: #### 3 4736146, 47515117, [id number], 83745077, [id number], 53328504 ####[facility] [address] [place] [address] Shigella species+EIEC invasion plasmid antigen H ipaH gene SULTANA+non-probe Ql (Stl) Not detected Normal [facility] Comment on above: Performed By: #### 3 1616334, 43115876, [id number], 19529160, [id number], 90244076 ####[facility] [address] [place] [address] V. cholerae+parahaemolyt icus+vulnificus DNA SULTANA+non-probe Ql (Stl) Not detected Normal [facility] Comment on above: Performed By: #### 3 8694005, 64469113, [id number], 40788688, [id number], 54226215 ####[facility] [address] [place] [address] Y. enterocolitica DNA SULTANA+non-probe Ql (Stl) Not detected Normal [facility] Comment on above: Performed By: #### 3 2871705, 81130943, [id number], 15639606, [id number], 17291225 ####[facility] [address] [place] [address] Fecal WBC Lactoferrinon Fecal WBC Lactoferrin Negative Normal Negative [facility] Comment on above: Result Comment: The semi-quantitative detection of elevated levels of fecal lactoferrin is a marker for fecal leukocytes and an indication of intestinal inflammation. Performed By: #### 3 5478608, 02679509, 5500513604, 60056543, [id number], 38634617 ####[facility] [address] [place] [address] MICRO OTHER TESTSOrdered By: Francisco Bolanos on 04-15-2023 Fecal WBC Lactoferrin Negative (04/15/23 7:00 AM) Normal Negative [facility] Man Sero Ambulatory Visit Summaryon 0 04-13-2023 [...] EDT With: Nereyda Gomez CNP Where: [facility] Normal [facility] Auto Diffon 04-13-2023 Basophils/100 WBC (Bld) 0.9 % Normal 0.0-2.0 [facility] Comment on above: Order Comment: Order Added by Discern Expert. Performed By: #### 1 1206292, 2165961, 2575388, 2675437 ####[facility] [address] [place] [address] Basophils/Leukocytes Auto (Bld) [Pure # fraction] 0.1 E9/L Normal 0.0-0.2 [facility] Comment on above: Order Comment: Order Added by Discern Expert. Performed By: #### 1 4807547, 8142839, 3190520, 7483122 ####[facility] [address] [place] [address] Eosinophils/100 WBC (Bld) 5.1 % Normal 0.0-8.0 [facility] Comment on above: Order Comment: Order Added by Discern Expert. Performed By: #### 1 1823155, 7802918, 5920491, 4987933 ####[facility] [address] [place] [address] Eosinophils/Leukocyte s Auto (Bld) [Pure # fraction] 0.3 E9/L Normal 0.0-0.5 [facility] Comment on above: Order Comment: Order Added by Discern Expert. Performed By: #### 1 6077078, 9027134, 7555516, 9924178 ####[facility] [place] [address] [address] Lymphocytes/100 WBC (Bld) 13.6 % Low 14.0-50.0 [facility] Comment on above: Order Comment: Order Added by Discern Expert. Performed By: #### 1 1605771, 7899724, 4763502, 0777119 ####[address] [address] Lymphocytes/Leukocyte s Auto (Bld) [Pure # fraction] 0.9 E9/L Low 1.0-4.0 [facility] Comment on above: Order Comment: Order Added by Discern Expert. Performed By: #### 1 0446805, 4625383, 6541870, 3567456 ####[address] [address] Monocytes/100 WBC (Bld) 11.9 % Normal 4.0-14.0 [facility] Comment on above: Order Comment: Order Added by Discern Expert. Performed By: #### 1 [id number], 5747068, 5050267, 6403670 ####[address] [address] Monocytes/Leukocytes Auto (Bld) [Pure # fraction] 0.8 E9/L Normal 0.2-1.0 [facility] Comment on above: Order Comment: Order Added by Ayanna Expert. Performed By: #### 1 [id number], 7907840, 9622726, 5708971 ####[address] [address] Neutrophils/100 WBC (Bld) 68.5 % Normal 36.0-75.0 [facility] Comment on above: Order Comment: Order Added by Discern Expert. Performed By: #### 1 [id number], 8647834, 2199451, 6897965 ####[address] [address] Neutrophils/Leukocyte s Auto (Bld) [Pure # fraction] 4.6 E9/L Normal 2.0-7.5 [facility] Comment on above: Order Comment: Order Added by Discern Expert. Performed By: #### 1 [id number], 0872056, 6667857, 7394117 ####[address] [place] [address] CBC w/ Auto Diffon 3 Erythrocyte distribution width (RBC) [Ratio] 14.7 % High 10.9-14.2 [facility] Comment on above: Performed By: #### 1 2851494, 7734440, 8463043, 3249941 ####[address] [place] [id number] Hematocrit (Bld) [Volume fraction] 40.3 % Normal 37.7-49.0 [facility] Comment on above: Performed By: #### 1 2454125, 7496552, 0612470, 0952059 ####[address] [address] Hemoglobin (Bld) [Mass/Vol] 13.7 g/dL Normal 13.5-17.5 [facility] Comment on above: Performed By: #### 1 3776970, 2945432, 1097760, 3728290 ####[address] [address] MCH (RBC) [Entitic mass] 33.9 pg Normal 27.0-34.0 [facility] Comment on above: Performed By: #### 1 7542610, 9966756, 7780056, 2122694 ####[address] [address] MCHC (RBC) [Mass/Vol] 34.0 g/dL Normal 31.4-36.0 [facility] Comment on above: Performed By: #### 1 6250904, 6379330, 3997874, 7683261 ####[address] [address] MCV (RBC) [Entitic vol] 99.8 fL Normal 80.0-100.0 [facility] Comment on above: Performed By: #### 1 0558223, 9725484, 1276937, 0340904 ####[address] [place] [address] Platelet mean volume (Bld) [Entitic vol] 9.8 fL Normal 6.4-10.8 [facility] Comment on above: Performed By: #### 1 9105008, 9260465, 6906179, 4587132 ####[facility] [address] [place] [address] Platelets (Bld) [#/Vol] 161.0 E9/L Normal 150.0-500.0 [facility] Comment on above: Performed By: #### 1 3928610, 0694277, 4960139, 8826115 ####[address] [place] [address] RBC (Bld) [#/Vol] 4.0 E12/L Low 4.3-5.9 [facility] Comment on above: Performed By: #### 1 2768160, 0074601, 9306913, 2135715 ####[facility] [address] [place] [address] WBC corrected for nucl RBC Auto (Bld) [#/Vol] 6.7 E9/L Normal 4.0-11.0 [facility] Comment on above: Performed By: #### 1 1232159, 4357515, 0809463, 6512698 ####[facility] [address] [place] [address] CHEMISTRYOrdered By: SYSTEM SYSTEM on 04-13-2023 Albumin [...] 37 mL/min/1.73 m2 Low >=59mL/min/1. 73 m2 FT Chem S Globulin (S) [Mass/Vol] 2.8 g/dL Normal 1.4 - 4.0 gm/dL [facility] Glucose [Mass/Vol] 111 mg/dL Normal 55 - 199 mg/dL [facility] Potassium [Moles/Vol] 4.1 mmol/L Normal 3.5 - 5.3 mmol/L [facility] Protein [Mass/Vol] 6.6 g/dL Normal 6.0 - 7.8 gm/dL [facility] Sodium [Moles/Vol] 141 mmol/L Normal 135 - 145 mmol/L [facility] Urea nitrogen [Mass/Vol] 24 mg/dL High 5 - 21 mg/dL [facility] Urea nitrogen/Creatinine [Mass ratio] 13 mg/mg Normal 10 - 20 [facility] CMPon 04-13-2023 Albumin [Mass/Vol] 3.8 g/dL Normal 3.3-5.0 [facility] Comment on above: Performed By: #### 1 1130532, 6259914, 6491233, 8664069 ####[facility] [address] [place] [address] Albumin/Globulin (S) [Mass conc ratio] 1.4 Normal 1.1-2.2 [facility] Comment on above: Performed By: #### 1 2648165, 2046212, 3157543, 8274693 ####[facility] [address] [place] [address] ALP [Catalytic activity/Vol] 61 Int._Unit/L Normal 21-98 [facility] Comment on above: Performed By: #### 1 6055142, 1972537, 6925278, 0801415 ####[facility] [address] [place] [address] ALT No additional P-5'-P [Catalytic activity/Vol] 16 Int._Unit/L Normal 6-46 [facility] Comment on above: Performed By: #### 1 9074334, 4828548, 8942523, 3177830 ####[facility] [address] [place] [address] Anion gap [Moles/Vol] 13 mmol/L Normal 6-16 [facility] Comment on above: Performed By: #### 1 5471306, 9092172, 5787240, 9670625 ####[facility] [address] [place] [address] AST [Catalytic activity/Vol] 18 Int._Unit/L Normal 5-43 [facility] Comment on above: Performed By: #### 1 5632702, 9910910, 3740710, 6109540 ####[facility] [address] [place] [address] Bilirubin [Mass/Vol] 0.5 mg/dL Normal 0.0-1.1 [facility] Comment on above: Performed By: #### 1 2497504, 0397964, 0409502, 8901018 ####[facility] [address] [place] [address] Calcium [Mass/Vol] 8.8 mg/dL Low 8.9-11.1 [facility] Comment on above: Performed By: #### 1 8921593, 1188075, 1236046, 4999024 ####[facility] [address] [place] [address] Chloride [Moles/Vol] 104 mmol/L Normal 101-111 [facility] Comment on above: Performed By: #### 1 1879610, 7553824, 0211940, 6936799 ####[facility] [address] [place] [address] CO2 [Moles/Vol] 28 mmol/L Normal 21-31 [facility] Comment on above: Performed By: #### 1 3086414, 6506513, 6999347, 9576036 ####[facility] [address] [place] [address] Creatinine [Mass/Vol] 1.8 mg/dL High 0.5-1.3 [facility] Comment on above: Performed By: #### 1 8470431, 7880890, 9824539, 8079479 ####[facility] [address] [place] [address] Globulin (S) [Mass/Vol] 2.8 g/dL Normal 1.4-4.0 [facility] Comment on above: Performed By: #### 1 7970572, 0063736, 0679564, 8404962 ####[facility] [address] [place] [address] Glucose [Mass/Vol] 111 mg/dL Normal 55-199 [facility] Comment on above: Result Comment: If t his glucose result represents a fasting glucose, interpretation should refer to the following reference range: 55-99 mg/dL Performed By: #### 1 4884330, 0423443, 5245760, 0619645 ####[facility] [address] [place] [address] Potassium [Moles/Vol] 4.1 mmol/L Normal 3.5-5.3 [facility] Comment on above: Performed By: #### 1 5806856, 0610964, 7982572, 9526149 ####[facility] [address] [place] [address] Protein [Mass/Vol] 6.6 g/dL Normal 6.0-7.8 [facility] Comment on above: Performed By: #### 1 2179898, 5815265, 3370460, 7755984 ####[facility] [address] [place] [address] Sodium [Moles/Vol] 141 mmol/L Normal 135-145 [facility] Comment on above: Performed By: #### 1 0441046, 2756349, 3527428, 9449833 ####[facility] [address] [place] [address] Urea nitrogen [Mass/Vol] 24 mg/dL High 5-21 [facility] Comment on above: Performed By: #### 1 9741351, 0677875, 8846491, 5598281 ####[facility] [address] [place] [address] Urea nitrogen/Creatinine [Mass ratio] 13 No Units Normal 10-20 [facility] Comment on above: Performed By: #### 1 1243812, 2789026, 7216384, 7695236 ####[facility] [address] [place] [address] Consent for Treatmenton 03-17 Consent for Treatment [id number] #1.00CD:127 Normal [facility] Gastroenterology Office/Clin ic Noteon 04-13-2023 Gastroenterology Office/Clinic [...] 4 mg= (more content not included)... Normal [facility] Comment on above: Result Comment: Elec tronically [...] 4.0 E12/L Low 4.3 - 5.9 E12/L [facility] HemeAutoSS WBC corrected for nucl RBC Auto (Bld) [#/Vol] 6.7 E9/L Normal 4.0 - 11.0 E9/L [facility] HemeAutoSS Orders Onlyon 04-13-2023 Orders Only [id number] Nadir Heredia 1940 M Date Provider Department Center 04/13/2023 [facility] LISA Comprehensiv Family History Problem Relation Age of Onset Coronary artery disease Father Family Status - Relation Status Age at Father Normal [place] Orders Only [id number] Nadir Heredia 1940 M Date Provider Department Center 04/13/2023 [facility] INT MED Comprehensiv Family History Problem Relation Age of Onset Coronary artery disease Father Family Status - Relation Status Age at Father Normal [place] eGFRon 04-13-2023 GFR/1.73 sq M.predicted among non-blacks MDRD (S/P/Bld) [Vol rate/Area] 37 mL/min/1.73 m2 Low >=59 [facility] Comment on above: Order Comment: Order added by Discern Expert. Result Comment: Electrotype [address] kidney disease could be indicated at eGFR's of less than 60 mL/min/1.73m2. Kidney failure is indicated at less than 15 mL/min/1.73m2. Performed By: #### 1 [id number], 5803103, 2396178, 1303384 ####[facility] [address] [place] [address] 36on 04-08-2023 36 Patient contacted Normal [facility] Telephoneon 04-08-2023 Telephone [id number] Nadir Heredia 1940 M Date Provider Department Center 04/08/2023 [facility] NEPHRO Comprehensiv Family History Problem Relation Age of Onset Coronary artery disease Father Family Status - Relation Status Age at Father Normal [place] Office Visiton 04-07-2023 Follow-up visit [id number] Nadir Heredia 1940 M Date Provider Department Center 04/07/2023 [facility] NEPHRO Comprehensiv Family History Problem Relation Age of Onset Coronary artery disease Father Family Status - Relation Status Age at Father Level of Service:76174 [place] OFFICE/OUTPATIENT ESTABLISHED MOD MDM 30-39 MIN Reason for Visit and Comments: Follow-up [583368] Normal [place] ALBUMINon 03-24-2023 Albumin [Mass/Vol] 3.3 g/dL Critically low 3.4-5.0 [facility] Comment on above: Performed By: #### M ERICK Faith, PHOS #### [facility] [address] [place] [address] Dr. David Magana GLYCOHEMOGLOBIN A1Con 2022 ADA RECOMMENDATION SEE BELOW Normal [facility] Comment on above: Result Comment: ADA RECOMMENDED LIMIT 4.0 - 6.0 ADA THERAPEUTIC TARGET < 7.0 ACTION SUGGESTED > 7.0 Performed By: #### A 1C #### [facility] [address] [address] [address] David Magana Glucose [Mass/Vol] 108 mg/dL Normal [facility] Comment on above: Performed By: #### A 1C #### [facility] [address] [address] [address] David Magana HbA1c (Bld) [Mass fraction] 5.4 % Normal 4.5-6.2 [facility] Comment on above: Performed By: #### A 1C #### [facility] [address] [address] [address] David Magana PHOSPHORUSon 03-24-2023 Phosphate [Mass/Vol] 3.6 mg/dL Normal 2.6-4.7 [facility] Comment on above: Performed By: #### M ERICK Faith, PHOS #### [facility] [address] [place] [address] Dr. David Magana PROF CHEM 8 (BAS METB)on Anion gap [Moles/Vol] 11.6 mmol/L Normal [facility] Comment on above: Performed By: #### M G, BMP, PHOS #### [facility] [address] [address] [address] David Magana Calcium [Mass/Vol] 8.9 mg/dL Normal 8.5-10.1 [facility] Comment on above: Performed By: #### M G, BMP, PHOS #### [facility] [address] [place] [address] Dr. David Magana Chloride [Moles/Vol] 107 mmol/L Normal 98-107 [facility] Comment on above: Performed By: #### M G, BMP, PHOS #### [facility] [address] [place] [address] Dr. David Magana CO2 [Moles/Vol] 30.8 mmol/L Normal 21.0-32.0 [facility] Comment on above: Performed By: #### M G, BMP, PHOS #### [facility] [address] [place] [address] Dr. David Magana Creatinine [Mass/Vol] 1.67 mg/dL Critically high 0.70-1.30 [facility] Comment on above: Performed By: #### M G, BMP, PHOS #### [facility] [address] [place] [address] Dr. David Magana EGFR-AF POLISH 48 mL/min/1.73m2 Critically low >=60 [facility] Comment on above: Performed By: #### M G, BMP, PHOS #### [facility] [address] [place] [address] Dr. David Magana EGFR-NON AF POLISH 39 mL/min/1.73m2 Critically low >=60 [facility] Comment on above: Performed By: #### M G, BMP, PHOS #### [facility] [address] [place] [address] Dr. David Magana Glucose [Mass/Vol] 128 mg/dL Critically high 74-106 [facility] Comment on above: Performed By: #### M G, BMP, PHOS #### [facility] [address] [place] [address] Dr. David Magana Potassium [Moles/Vol] 4.4 mmol/L Normal 3.5-5.1 [facility] Comment on above: Performed By: #### ERICK Jacques, PHOS #### [facility] [address] [place] [address] Dr. David Magana Sodium [Moles/Vol] 145 mmol/L Normal 136-145 [facility] Comment on above: Performed By: #### ERICK Jacques, PHOS #### [facility] [address] [place] [address] Dr. David Magana Urea nitrogen [Mass/Vol] 25.0 mg/dL Critically high 7.0-18.0 [facility] Comment on above: Performed By: #### ERICK Jacques, PHOS #### [facility] [address] [place] [address] Dr. David Magana Urea nitrogen/Creatinine [Mass ratio] 15.0 mg/mg Normal [facility] Comment on above: Performed By: #### ERICK Jacques, PHOS #### [facility] [address] [place] [address] Dr. David Magana VITAMIN D 25 OHon 03-24-2023 VIT D 25-OH 11.6 ng/mL Normal [facility] Comment on above: Performed By: #### C BC #### [facility] [address] [place] [address] Dr. David Magana VIT D RANGES SEE BELOW Normal [facility] Comment on above: Result Comment: <20 ng/mL Vit D deficient 20 - <30 ng/mL Vit D insufficient 30 - 100 ng/mL Vit D sufficient >100 ng/mL Potential Toxicity Performed By: #### C BC #### [facility] [address] [place] [address] Dr. David Magana Physician Referralon 023 Physician Referral [id number] #[id number]:127 Normal [facility] CBC AUTO DIFFon 02-27-2023 BASO # 0.0 103/ul Normal 0.0-0.1 [facility] Comment on above: Performed By: #### M Marcell BMP, PHOS #### [facility] [address] [place] [address] Dr. David Magana Basophils/100 WBC (Bld) 0.5 % Normal 0.2-2.0 [facility] Comment on above: Performed By: #### M Marcell BMP, PHOS #### [facility] [address] [place] [address] Dr. David Magana EO # 0.7 103/ul Normal 0.0-0.7 [facility] Comment on above: Performed By: #### M Marcell, BMP, PHOS #### [facility] [address] [place] [address] Dr. David Magana Eosinophils/100 WBC (Bld) 9.3 % Critically high 0.9-7.0 [facility] Comment on above: Performed By: #### ERICK Jacques, PHOS #### [facility] [address] [place] [address] Dr. David Magana Erythrocyte distribution width (RBC) [Ratio] 14.6 % Normal 11.0-15.0 [facility] Comment on above: Performed By: #### M ERICK Faith, PHOS #### [facility] [address] [place] [address] Dr. David Magana Hematocrit (Bld) [Volume fraction] 41.5 % Critically low 42.0-54.0 [facility] Comment on above: Performed By: #### M ERICK Faith, PHOS #### [facility] [address] [place] [address] Dr. David Magana Hemoglobin (Bld) [Mass/Vol] 13.9 g/dL Critically low 14.0-18.0 [facility] Comment on above: Performed By: #### M Marcell BMP, PHOS #### [facility] [address] [place] [address] Dr. David Magana IG # 0.02 10e3/ul Normal 0.00-0.03 [facility] Comment on above: Performed By: #### M Marcell, BMP, PHOS #### [facility] [address] [place] [address] Dr. David Magana IG % 0.3 % Normal 0.0-0.5 [facility] Comment on above: Performed By: #### M ERICK Faith, PHOS #### [facility] [address] [place] [address] Dr. David Magana LYMPH # 1.0 103/ul Critically low 1.2-3.8 [facility] Comment on above: Performed By: #### M ERICK Faith, PHOS #### [facility] [address] [place] [address] Dr. David Magana Lymphocytes/100 WBC (Bld) 13.0 % Critically low 20.5-60.0 [facility] Comment on above: Performed By: #### M ERICK Faith, PHOS #### [facility] [address] [place] [address] Dr. David Magana MANUAL DIFF REQ NO Normal [facility] Comment on above: Performed By: #### M ERICK Faith, PHOS #### [facility] [address] [place] [address] Dr. David Magana MCH (RBC) [Entitic mass] 33.5 pg Normal 25.9-34.0 [facility] Comment on above: Performed By: #### M ERICK Faith, PHOS #### [facility] [address] [place] [address] Dr. David Magana MCHC (RBC) [Mass/Vol] 33.5 g/dL Normal 29.9-35.2 [facility] Comment on above: Performed By: #### M ERICK Faith, PHOS #### [facility] [address] [place] [address] Dr. David Magana MCV (RBC) [Entitic vol] 100.0 fL Critically high 80.0-94.0 [facility] Comment on above: Performed By: #### M ERICK Faith, PHOS #### [facility] [address] [place] [address] Dr. David Magana MONO # 0.8 103/ul Normal 0.3-0.8 [facility] Comment on above: Performed By: #### M G, BMP, PHOS #### [facility] [address] [place] [address] Dr. David Magana Monocytes/100 WBC (Bld) 10.1 % Normal 1.7-12.0 [facility] Comment on above: Performed By: #### M G, BMP, PHOS #### [facility] [address] [place] [address] Dr. David Magana NEUT # 5.0 103/ul Normal 1.4-6.5 [facility] Comment on above: Performed By: #### M G, BMP, PHOS #### [facility] [address] [place] [address] Dr. David Magana Neutrophils/100 WBC (Bld) 66.8 % Normal 43.0-75.0 [facility] Comment on above: Performed By: #### M Marcell BMP, PHOS #### [facility] [address] [place] [address] Dr. David Magana Platelet mean volume (Bld) [Entitic vol] 11.2 fL Normal 9.5-13.5 [facility] Comment on above: Performed By: #### Jim Faith BMP, PHOS #### [facility] [address] [place] [address] Dr. David Magana PLT 187 103/ul Normal 150-450 [facility] Comment on above: Performed By: #### M Marcell BMP, PHOS #### [facility] [address] [place] [address] Dr. David Magana RBC 4.15 106/ul Critically low 4.70-6.10 [facility] Comment on above: Performed By: #### M G, BMP, PHOS #### [facility] [address] [place] [address] Dr. David Magana WBC 7.5 103/ul Normal 4.0-11.0 [facility] Comment on above: Performed By: #### M G, BMP, PHOS #### [facility] [address] [place] [address] Dr. David Magana PROF 14(COMP METB)on 023 Albumin [Mass/Vol] 3.5 g/dL Normal 3.4-5.0 [facility] Comment on above: Performed By: #### A 1C #### [facility] [address] [place] [address] Dr. David Magana Albumin/Globulin [Mass ratio] 1.1 {ratio} Normal [facility] Comment on above: Performed By: #### A 1C #### [facility] [address] [place] [address] Dr. David Magana ALP [Catalytic activity/Vol] 76 U/L Normal 46-116 [facility] Comment on above: Performed By: #### A 1C #### [facility] [address] [place] [address] Dr. David Magana ALT [Catalytic activity/Vol] 23 U/L Normal 16-63 [facility] Comment on above: Performed By: #### A 1C #### [facility] [address] [place] [address] Dr. David Magana Anion gap [Moles/Vol] 13.1 mmol/L Normal [facility] Comment on above: Performed By: #### A 1C #### [facility] [address] [place] [address] Dr. David Magana AST [Catalytic activity/Vol] 17 U/L Normal 15-37 [facility] Comment on above: Performed By: #### A 1C #### [facility] [address] [place] [address] Dr. David Magana Bilirubin [Mass/Vol] 0.7 mg/dL Normal 0.2-1.0 [facility] Comment on above: Performed By: #### A 1C #### [facility] [address] [place] [address] Dr. David Magana Calcium [Mass/Vol] 9.0 mg/dL Normal 8.5-10.1 [facility] Comment on above: Performed By: #### A 1C #### [facility] [address] [place] [address] Dr. David Magana Chloride [Moles/Vol] 105 mmol/L Normal 98-107 [facility] Comment on above: Performed By: #### A 1C #### [facility] [address] [place] [address] Dr. David Magana CO2 [Moles/Vol] 29.0 mmol/L Normal 21.0-32.0 [facility] Comment on above: Performed By: #### A 1C #### [facility] [address] [place] [address] Dr. David Magana Creatinine [Mass/Vol] 1.77 mg/dL Critically high 0.70-1.30 [facility] Comment on above: Performed By: #### A 1C #### [facility] [address] [place] [address] Dr. David Magana EGFR-AF POLISH 45 mL/min/1.73m2 Critically low >=60 [facility] Comment on above: Performed By: #### A 1C #### [facility] [address] [place] [address] Dr. David Magana EGFR-NON AF POLISH 37 mL/min/1.73m2 Critically low >=60 [facility] Comment on above: Performed By: #### A 1C #### [facility] [address] [place] [address] Dr. David Magana Globulin (S) [Mass/Vol] 3.3 g/dL Normal [facility] Comment on above: Performed By: #### A 1C #### [facility] [address] [place] [address] Dr. David Magana Glucose [Mass/Vol] 135 mg/dL Critically high 74-106 [facility] Comment on above: Performed By: #### A 1C #### [facility] [address] [address] [address] David Magana Potassium [Moles/Vol] 4.1 mmol/L Normal 3.5-5.1 [facility] Comment on above: Performed By: #### A 1C #### [facility] [address] [place] [address] Dr. David Magana Protein [Mass/Vol] 6.8 g/dL Normal 6.4-8.2 [facility] Comment on above: Performed By: #### A 1C #### [facility] [address] [place] [address] Dr. David Magana Sodium [Moles/Vol] 143 mmol/L Normal 136-145 [facility] Comment on above: Performed By: #### A 1C #### [facility] [address] [place] [address] Dr. David Magana Urea nitrogen [Mass/Vol] 31.0 mg/dL Critically high 7.0-18.0 [facility] Comment on above: Performed By: #### A 1C #### [facility] [address] [place] [address] Dr. David Magana Urea nitrogen/Creatinine [Mass ratio] 17.5 mg/mg Normal [facility] Comment on above: Performed By: #### A 1C #### [facility] [address] [place] [address] Dr. David Magana PROTIMEon 02-27-2023 INR Coag (PPP) [Relative time] 0.99 {INR} Normal [facility] Comment on above: Performed By: #### A 1C #### [facility] [address] [place] [address] Dr. David Magana INR GUIDELINES SEE BELOW Normal [facility] Comment on above: Result Comment: IDANIA RED INR: 2.0 - 3.0 CONDITIONS NOT LISTED BELOW 2.5 - 3.5 FOR PROSTHETIC HEART VALVE REPLACEMENT 2.5 - 3.5 RECURRENT THROMBOSIS Performed By: #### A 1C #### [facility] [address] [place] [address] Dr. David Magana PT Coag (PPP) [Time] 10.5 s Normal 9.0-11.6 [facility] Comment on above: Performed By: #### A 1C #### [facility] [address] [place] [address] Dr. David Magana PTTon 02-27-2023 aPTT Coag (Bld) [Time] 33.0 s Normal 22.3-36.2 [facility] Comment on above: Performed By: #### P OCGLUC #### [facility] [address] [address] [address] David Magana ALBUMINon 12-28-2022 Albumin [Mass/Vol] 3.6 g/dL Normal 3.4-5.0 [facility] Comment on above: Performed By: #### C BC #### [facility] [address] [address] [address] David Magana GLYCOHEMOGLOBIN A1Con 2022 ADA RECOMMENDATION SEE BELOW Normal [facility] Comment on above: Result Comment: ADA RECOMMENDED LIMIT 4.0 - 6.0 ADA THERAPEUTIC TARGET < 7.0 ACTION SUGGESTED > 7.0 Performed By: #### P OCGLUC #### [facility] [address] [place] [address] Dr. David Magana Glucose [Mass/Vol] 140 mg/dL Normal [facility] Comment on above: Performed By: #### P OCGLUC #### [facility] [address] [address] [address] David Magana HbA1c (Bld) [Mass fraction] 6.5 % Critically high 4.5-6.2 [facility] Comment on above: Performed By: #### P OCGLUC #### [facility] [address] [place] [address] Dr. David Magana MAGNESIUMon 12-28-2022 Magnesium [Mass/Vol] 2.3 mg/dL Normal 1.8-2.4 [facility] Comment on above: Performed By: #### P OCGLUC #### [facility] [address] [place] [address] Dr. David Magana PROF CHEM 8 (BAS METB)on Anion gap [Moles/Vol] 13.2 mmol/L Normal [facility] Comment on above: Performed By: #### P OCGLUC #### [facility] [address] [place] [address] Dr. David Magana Calcium [Mass/Vol] 9.0 mg/dL Normal 8.5-10.1 [facility] Comment on above: Performed By: #### P OCGLUC #### [facility] [address] [address] [address] David Magana Chloride [Moles/Vol] 105 mmol/L Normal 98-107 [facility] Comment on above: Performed By: #### P OCGLUC #### [facility] [address] [address] [address] David Magana CO2 [Moles/Vol] 28.9 mmol/L Normal 21.0-32.0 [facility] Comment on above: Performed By: #### P OCGLUC #### [facility] [address] [address] [address] David Magana Creatinine [Mass/Vol] 1.66 mg/dL Critically high 0.70-1.30 [facility] Comment on above: Performed By: #### P OCGLUC #### [facility] [address] [address] [address] David Magana EGFR-AF POLISH 48 mL/min/1.73m2 Critically low >=60 [facility] Comment on above: Performed By: #### P OCGLUC #### [facility] [address] [address] [address] David Magana EGFR-NON AF POLISH 40 mL/min/1.73m2 Critically low >=60 [facility] Comment on above: Performed By: #### P OCGLUC #### [facility] [address] [address] [address] David Magana Glucose [Mass/Vol] 123 mg/dL Critically high 74-106 [facility] Comment on above: Performed By: #### P OCGLUC #### [facility] [address] [address] [address] David Magana Potassium [Moles/Vol] 4.1 mmol/L Normal 3.5-5.1 [facility] Comment on above: Performed By: #### P OCGLUC #### [facility] [address] [address] [address] David Magana Sodium [Moles/Vol] 143 mmol/L Normal 136-145 [facility] Comment on above: Performed By: #### P OCGLUC #### [facility] [address] [place] [address] Dr. David Magana Urea nitrogen [Mass/Vol] 29.0 mg/dL Critically high 7.0-18.0 [facility] Comment on above: Performed By: #### P OCGLUC #### [facility] [address] [place] [address] Dr. David Magana Urea nitrogen/Creatinine [Mass ratio] 17.5 mg/mg Normal [facility] Comment on above: Performed By: #### P OCGLUC #### [facility] [address] [place] [address] Dr. David Magana URINE T PROTEIN CREAT RATIOo n 12-28-2022 UR TOTAL PROTEIN <6.0 Normal <=12.0 [facility] Comment on above: Performed By: #### M G, BMP, PHOS #### [facility] [address] [place] [address] Dr. David Magana URINE CREAT 41.21 mg/dL Normal 20.00-300.00 [facility] Comment on above: Performed By: #### M G, BMP, PHOS #### [facility] [address] [place] [address] Dr. David Magana ALBUMINon 11-16-2022 Albumin [Mass/Vol] 3.3 g/dL Critically low 3.4-5.0 [facility] Comment on above: Performed By: #### C BC #### [facility] [address] [place] [address] Dr. David Magana CREATININE URINEon URINE CREAT 19.69 mg/dL Critically low 20.00-300.00 [facility] Comment on above: Performed By: #### M G, BMP, PHOS #### [facility] [address] [place] [address] Dr. David Magana HEMOGLOBINon 11-16-2022 Hemoglobin (Bld) [Mass/Vol] 14.9 g/dL Normal 14.0-18.0 [facility] Comment on above: Performed By: #### M G, BMP, PHOS #### [facility] [address] [place] [address] Dr. David Magana MAGNESIUMon 11-16-2022 Magnesium [Mass/Vol] 2.2 mg/dL Normal 1.8-2.4 [facility] Comment on above: Performed By: #### C BC #### [facility] [address] [place] [address] Dr. David Magana PHOSPHORUSon 11-16-2022 Phosphate [Mass/Vol] 3.9 mg/dL Normal 2.6-4.7 [facility] Comment on above: Performed By: #### C BC #### [facility] [address] [place] [address] Dr. David Magana PROF CHEM 8 (BAS METB)on Anion gap [Moles/Vol] 11.9 mmol/L Normal [facility] Comment on above: Performed By: #### C BC #### [facility] [address] [place] [address] Dr. David Magana Calcium [Mass/Vol] 8.8 mg/dL Normal 8.5-10.1 [facility] Comment on above: Performed By: #### C BC #### [facility] [address] [place] [address] Dr. David Magana Chloride [Moles/Vol] 104 mmol/L Normal 98-107 [facility] Comment on above: Performed By: #### C BC #### [facility] [address] [place] [address] Dr. David Magana CO2 [Moles/Vol] 27.4 mmol/L Normal 21.0-32.0 [facility] Comment on above: Performed By: #### C BC #### [facility] [address] [place] [address] Dr. David Magana Creatinine [Mass/Vol] 1.68 mg/dL Critically high 0.70-1.30 [facility] Comment on above: Performed By: #### C BC #### [facility] [address] [place] [address] Dr. David Magana EGFR-AF POLISH 48 mL/min/1.73m2 Critically low >=60 [facility] Comment on above: Performed By: #### C BC #### [facility] [address] [address] [address] David Magana EGFR-NON AF POLISH 39 mL/min/1.73m2 Critically low >=60 [facility] Comment on above: Performed By: #### C BC #### [facility] [address] [address] [address] David Magana Glucose [Mass/Vol] 212 mg/dL Critically high 74-106 [facility] Comment on above: Performed By: #### C BC #### [facility] [address] [address] [address] David Magana Potassium [Moles/Vol] 4.3 mmol/L Normal 3.5-5.1 [facility] Comment on above: Performed By: #### C BC #### [facility] [address] [address] [address] David Magana Sodium [Moles/Vol] 139 mmol/L Normal 136-145 [facility] Comment on above: Performed By: #### C BC #### [facility] [address] [address] [address] David Magana Urea nitrogen [Mass/Vol] 25.0 mg/dL Critically high 7.0-18.0 [facility] Comment on above: Performed By: #### C BC #### [facility] [address] [address] [address] David Magana Urea nitrogen/Creatinine [Mass ratio] 14.9 mg/mg Normal [facility] Comment on above: Performed By: #### C BC #### [facility] [address] [address] [address] Dvaid Magana PROTEIN RAND URINEon 023 UR PROT <5.0 Normal <=11.9 [facility] Comment on above: Performed By: #### M G, BMP, PHOS #### [facility] [address] [address] [address] David Magana US CHANI DOP LEG [...] CLOVER PEREZ Date: 2022-11-02 16:21 Normal [facility] BNPon 07-22-2022 Natriuretic peptide B (Bld) [Mass/Vol] 2143.0 pg/mL Critically high <=1,800.0 [facility] Comment on above: Performed By: #### M ERICK Faith PHOS #### [facility] [address] [place] [address] Dr. David Magana CBC AUTO DIFFon 07-22-2022 BASO # 0.0 103/ul Normal 0.0-0.1 [facility] Comment on above: Performed By: #### A 1C #### [facility] [address] [place] [address] Dr. David Magana Basophils/100 WBC (Bld) 0.3 % Normal 0.2-2.0 [facility] Comment on above: Performed By: #### A 1C #### [facility] [address] [place] [address] Dr. David Magana EO # 0.3 103/ul Normal 0.0-0.7 [facility] Comment on above: Performed By: #### A 1C #### [facility] [address] [place] [address] Dr. David Magana Eosinophils/100 WBC (Bld) 2.4 % Normal 0.9-7.0 [facility] Comment on above: Performed By: #### A 1C #### [facility] [address] [place] [address] Dr. David Magana Erythrocyte distribution width (RBC) [Ratio] 13.4 % Normal 11.0-15.0 [facility] Comment on above: Performed By: #### A 1C #### [facility] [address] [address] [address] David Magana Hematocrit (Bld) [Volume fraction] 42.7 % Normal 42.0-54.0 [facility] Comment on above: Performed By: #### A 1C #### [facility] [address] [address] [address] David Magana Hemoglobin (Bld) [Mass/Vol] 14.2 g/dL Normal 14.0-18.0 [facility] Comment on above: Performed By: #### A 1C #### [facility] [address] [address] [address] David Magana IG # 0.18 10e3/ul Critically high 0.00-0.03 [facility] Comment on above: Performed By: #### A 1C #### [facility] [address] [place] [address] Dr. David Magana IG % 1.6 % Critically high 0.0-0.5 [facility] Comment on above: Performed By: #### A 1C #### [facility] [address] [address] [address] David Magana LYMPH # 0.9 103/ul Critically low 1.2-3.8 [facility] Comment on above: Performed By: #### A 1C #### [facility] [address] [place] [address] Dr. David Magana Lymphocytes/100 WBC (Bld) 8.1 % Critically low 20.5-60.0 [facility] Comment on above: Performed By: #### A 1C #### [facility] [address] [address] [address] David Magana MANUAL DIFF REQ NO Normal [facility] Comment on above: Performed By: #### A 1C #### [facility] [address] [place] [address] Dr. David Magana MCH (RBC) [Entitic mass] 33.3 pg Normal 25.9-34.0 [facility] Comment on above: Performed By: #### A 1C #### [facility] [address] [place], [place] [id number] Dr. David Magana MCHC (RBC) [Mass/Vol] 33.3 g/dL Normal 29.9-35.2 [facility] Comment on above: Performed By: #### A 1C #### [facility] [address] [place] [address] Dr. David Magana MCV (RBC) [Entitic vol] 100.2 fL Critically high 80.0-94.0 [facility] Comment on above: Performed By: #### A 1C #### [facility] [address] [place] [address] Dr. David Magana MONO # 1.2 103/ul Critically high 0.3-0.8 [facility] Comment on above: Performed By: #### A 1C #### [facility] [address] [place] [address] Dr. David Magana Monocytes/100 WBC (Bld) 10.5 % Normal 1.7-12.0 [facility] Comment on above: Performed By: #### A 1C #### [facility] [address] [place] [address] Dr. David Magana NEUT # 8.9 103/ul Critically high 1.4-6.5 [facility] Comment on above: Performed By: #### A 1C #### [facility] [address] [place] [address] Dr. David Magana Neutrophils/100 WBC (Bld) 77.1 % Critically high 43.0-75.0 [facility] Comment on above: Performed By: #### A 1C #### [facility] [address] [place] [address] Dr. David Magana Platelet mean volume (Bld) [Entitic vol] 11.3 fL Normal 9.5-13.5 [facility] Comment on above: Performed By: #### A 1C #### [facility] [address] [place] [address] Dr. David Magana PLT 175 103/ul Normal 150-450 [facility] Comment on above: Performed By: #### A 1C #### [facility] [address] [place], [place] [id number] Dr. David Magana RBC 4.26 106/ul Critically low 4.70-6.10 [facility] Comment on above: Performed By: #### A 1C #### [facility] [address] [place] [address] Dr. David Magana WBC 11.5 103/ul Critically high 4.0-11.0 [facility] Comment on above: Performed By: #### A 1C #### [facility] [address] [place] [address] Dr. David Magana PROF 14(COMP METB)on 022 Albumin [Mass/Vol] 2.6 g/dL Critically low 3.4-5.0 [facility] Comment on above: Performed By: #### M ERICK Faith, PHOS #### [facility] [address] [place] [address] Dr. David Magana Albumin/Globulin [Mass ratio] 0.9 {ratio} Normal [facility] Comment on above: Performed By: #### M Marcell BMP, PHOS #### [facility] [address] [place] [address] Dr. David Magana ALP [Catalytic activity/Vol] 49 U/L Normal 46-116 [facility] Comment on above: Performed By: #### M Marcell BMP, PHOS #### [facility] [address] [place] [address] Dr. David Magana ALT [Catalytic activity/Vol] 25 U/L Normal 16-63 [facility] Comment on above: Performed By: #### M Marcell, BMP, PHOS #### [facility] [address] [place] [address] Dr. David Magana Anion gap [Moles/Vol] 12.8 mmol/L Normal [facility] Comment on above: Performed By: #### M Marcell, BMP, PHOS #### [facility] [address] [place] [address] Dr. David Magana AST [Catalytic activity/Vol] 9 U/L Critically low 15-37 [facility] Comment on above: Performed By: #### M Marcell, BMP, PHOS #### [facility] [address] [place] [address] Dr. David Magana Bilirubin [Mass/Vol] 0.5 mg/dL Normal 0.2-1.0 [facility] Comment on above: Performed By: #### M G, BMP, PHOS #### [facility] [address] [place] [address] Dr. David Magana Calcium [Mass/Vol] 8.3 mg/dL Critically low 8.5-10.1 [facility] Comment on above: Performed By: #### M G, BMP, PHOS #### [facility] [address] [place] [address] Dr. David Magana Chloride [Moles/Vol] 105 mmol/L Normal 98-107 [facility] Comment on above: Performed By: #### M G, BMP, PHOS #### [facility] [address] [place] [address] Dr. David Magana CO2 [Moles/Vol] 24.2 mmol/L Normal 21.0-32.0 [facility] Comment on above: Performed By: #### M G, BMP, PHOS #### [facility] [address] [place] [address] Dr. David Magana Creatinine [Mass/Vol] 1.28 mg/dL Normal 0.70-1.30 [facility] Comment on above: Performed By: #### M G, BMP, PHOS #### [facility] [address] [place] [address] Dr. David Magana EGFR-AF POLISH >60 Normal >=60 [facility] Comment on above: Performed By: #### M G, BMP, PHOS #### [facility] [address] [place] [address] Dr. David Magana EGFR-NON AF POLISH 54 mL/min/1.73m2 Critically low >=60 [facility] Comment on above: Performed By: #### M G, BMP, PHOS #### [facility] [address] [place] [address] Dr. David Magana Globulin (S) [Mass/Vol] 2.9 g/dL Normal [facility] Comment on above: Performed By: #### M ERICK Faith, PHOS #### [facility] [address] [address] [address] David Magana Glucose [Mass/Vol] 205 mg/dL Critically high 74-106 [facility] Comment on above: Performed By: #### M ERICK Faith, PHOS #### [facility] [address] [place] [address] Dr. David Magana Potassium [Moles/Vol] 4.0 mmol/L Normal 3.5-5.1 [facility] Comment on above: Performed By: #### ERICK Jacques, PHOS #### [facility] [address] [place] [address] Dr. David Magana Protein [Mass/Vol] 5.5 g/dL Critically low 6.4-8.2 [facility] Comment on above: Performed By: #### ERICK Jacques, PHOS #### [facility] [address] [place] [address] Dr. David Magana Sodium [Moles/Vol] 138 mmol/L Normal 136-145 [facility] Comment on above: Performed By: #### ERICK Jacques, PHOS #### [facility] [address] [place] [address] Dr. David Magana Urea nitrogen [Mass/Vol] 36.0 mg/dL Critically high 7.0-18.0 [facility] Comment on above: Performed By: #### ERICK Jacques, PHOS #### [facility] [address] [place] [address] Dr. David Magana Urea nitrogen/Creatinine [Mass ratio] 28.1 mg/mg Normal [facility] Comment on above: Performed By: #### ERICK Jacques, PHOS #### [facility] [address] [place] [address] Dr. David Magana BNPon 07-21-2022 Natriuretic peptide B (Bld) [Mass/Vol] 3485.0 pg/mL Critically high <=1,800.0 [facility] Comment on above: Result Comment: repe ated Performed By: #### A 1C #### [facility] [address] [place] [address] Dr. David Magana CBC AUTO DIFFon 07-21-2022 BASO # 0.0 103/ul Normal 0.0-0.1 [facility] Comment on above: Performed By: #### C BC #### [facility] [address] [place] [address] Dr. David Magana Basophils/100 WBC (Bld) 0.3 % Normal 0.2-2.0 [facility] Comment on above: Performed By: #### C BC #### [facility] [address] [place] [address] Dr. David Magana EO # 0.2 103/ul Normal 0.0-0.7 [facility] Comment on above: Performed By: #### C BC #### [facility] [address] [place] [address] Dr. David Magana Eosinophils/100 WBC (Bld) 1.9 % Normal 0.9-7.0 [facility] Comment on above: Performed By: #### C BC #### [facility] [address] [place] [address] Dr. David Magana Erythrocyte distribution width (RBC) [Ratio] 13.4 % Normal 11.0-15.0 [facility] Comment on above: Performed By: #### C BC #### [facility] [address] [place] [address] Dr. David Magana Hematocrit (Bld) [Volume fraction] 42.5 % Normal 42.0-54.0 [facility] Comment on above: Performed By: #### C BC #### [facility] [address] [place] [address] Dr. David Magana Hemoglobin (Bld) [Mass/Vol] 14.2 g/dL Normal 14.0-18.0 [facility] Comment on above: Performed By: #### C BC #### [facility] [address] [place] [address] Dr. David Magana IG # 0.22 10e3/ul Critically high 0.00-0.03 [facility] Comment on above: Performed By: #### C BC #### [facility] [address] [place] [address] Dr. David Magana IG % 2.1 % Critically high 0.0-0.5 [facility] Comment on above: Performed By: #### C BC #### [facility] [address] [address] [address] David Magana LYMPH # 0.8 103/ul Critically low 1.2-3.8 [facility] Comment on above: Performed By: #### C BC #### [facility] [address] [place] [address] Dr. David Magana Lymphocytes/100 WBC (Bld) 7.7 % Critically low 20.5-60.0 [facility] Comment on above: Performed By: #### C BC #### [facility] [address] [place] [address] Dr. David Magana MANUAL DIFF REQ NO Normal [facility] Comment on above: Performed By: #### C BC #### [facility] [address] [address] [address] David Magnaa MCH (RBC) [Entitic mass] 33.0 pg Normal 25.9-34.0 [facility] Comment on above: Performed By: #### C BC #### [facility] [address] [place] [address] Dr. David Magana MCHC (RBC) [Mass/Vol] 33.4 g/dL Normal 29.9-35.2 [facility] Comment on above: Performed By: #### C BC #### [facility] [address] [address] [address] David Magana MCV (RBC) [Entitic vol] 98.8 fL Critically high 80.0-94.0 [facility] Comment on above: Performed By: #### C BC #### [facility] [address] [place] [address] Dr. David Magana MONO # 1.0 103/ul Critically high 0.3-0.8 [facility] Comment on above: Performed By: #### C BC #### [facility] [address] [address] [address] David Magana Monocytes/100 WBC (Bld) 9.7 % Normal 1.7-12.0 [facility] Comment on above: Performed By: #### C BC #### [facility] [address] [address] [address] David Magana NEUT # 8.1 103/ul Critically high 1.4-6.5 [facility] Comment on above: Performed By: #### C BC #### [facility] [address] [address] [address] David Magana Neutrophils/100 WBC (Bld) 78.3 % Critically high 43.0-75.0 [facility] Comment on above: Performed By: #### C BC #### [facility] [address] [place] [address] Dr. David Magana Platelet mean volume (Bld) [Entitic vol] 10.7 fL Normal 9.5-13.5 [facility] Comment on above: Performed By: #### C BC #### [facility] [address] [place] [address] Dr. David Magana PLT 177 103/ul Normal 150-450 [facility] Comment on above: Performed By: #### C BC #### [facility] [address] [address] [address] David Magana RBC 4.30 106/ul Critically low 4.70-6.10 [facility] Comment on above: Performed By: #### C BC #### [facility] [address] [place] [address] Dr. David Magana WBC 10.4 103/ul Normal 4.0-11.0 [facility] Comment on above: Performed By: #### C BC #### [facility] [address] [place] [address] Dr. David Magana PROF 14(COMP METB)on 022 Albumin [Mass/Vol] 2.6 g/dL Critically low 3.4-5.0 [facility] Comment on above: Performed By: #### A 1C #### [facility] [address] [address] [address] David Magana Albumin/Globulin [Mass ratio] 1.0 {ratio} Normal [facility] Comment on above: Performed By: #### A 1C #### [facility] [address] [address] [address] David Magana ALP [Catalytic activity/Vol] 50 U/L Normal 46-116 [facility] Comment on above: Performed By: #### A 1C #### [facility] [address] [place] [address] Dr. David Magana ALT [Catalytic activity/Vol] 28 U/L Normal 16-63 [facility] Comment on above: Performed By: #### A 1C #### [facility] [address] [place] [address] Dr. David Magana Anion gap [Moles/Vol] 11.4 mmol/L Normal [facility] Comment on above: Performed By: #### A 1C #### [facility] [address] [place] [address] Dr. David Magana AST [Catalytic activity/Vol] 13 U/L Critically low 15-37 [facility] Comment on above: Performed By: #### A 1C #### [facility] [address] [place] [address] Dr. David Magana Bilirubin [Mass/Vol] 0.4 mg/dL Normal 0.2-1.0 [facility] Comment on above: Performed By: #### A 1C #### [facility] [address] [place] [address] Dr. David Magana Calcium [Mass/Vol] 8.4 mg/dL Critically low 8.5-10.1 [facility] Comment on above: Performed By: #### A 1C #### [facility] [address] [place] [address] Dr. David Magana Chloride [Moles/Vol] 107 mmol/L Normal 98-107 [facility] Comment on above: Performed By: #### A 1C #### [facility] [address] [address] [address] David Magana CO2 [Moles/Vol] 24.6 mmol/L Normal 21.0-32.0 [facility] Comment on above: Performed By: #### A 1C #### [facility] [address] [address] [address] David Magana Creatinine [Mass/Vol] 1.26 mg/dL Normal 0.70-1.30 [facility] Comment on above: Performed By: #### A 1C #### [facility] [address] [address] [address] David Magana EGFR-AF POLISH >60 Normal >=60 [facility] Comment on above: Performed By: #### A 1C #### [facility] [address] [place] [address] Dr. David Magana EGFR-NON AF POLISH 55 mL/min/1.73m2 Critically low >=60 [facility] Comment on above: Performed By: #### A 1C #### [facility] [address] [place] [address] Dr. David Magana Globulin (S) [Mass/Vol] 2.7 g/dL Normal [facility] Comment on above: Performed By: #### A 1C #### [facility] [address] [place] [address] Dr. David Magana Glucose [Mass/Vol] 203 mg/dL Critically high 74-106 [facility] Comment on above: Performed By: #### A 1C #### [facility] [address] [place] [address] Dr. David Magana Potassium [Moles/Vol] 4.0 mmol/L Normal 3.5-5.1 [facility] Comment on above: Performed By: #### A 1C #### [facility] [address] [address] [address] David Magana Protein [Mass/Vol] 5.3 g/dL Critically low 6.4-8.2 [facility] Comment on above: Performed By: #### A 1C #### [facility] [address] [place] [address] Dr. David Magana Sodium [Moles/Vol] 139 mmol/L Normal 136-145 [facility] Comment on above: Performed By: #### A 1C #### [facility] [address] [place] [address] Dr. David Magana Urea nitrogen [Mass/Vol] 33.0 mg/dL Critically high 7.0-18.0 [facility] Comment on above: Performed By: #### A 1C #### [facility] [address] [place] [address] Dr. David Magana Urea nitrogen/Creatinine [Mass ratio] 26.2 mg/mg Normal [facility] Comment on above: Performed By: #### A 1C #### [facility] [address] [place] [address] Dr. David Magana BNPon 07-20-2022 Natriuretic peptide B (Bld) [Mass/Vol] 7478.0 pg/mL Critically high <=1,800.0 [facility] Comment on above: Performed By: #### A 1C #### [facility] [address] [place] [address] Dr. David Magana CBC AUTO DIFFon 07-20-2022 BASO # 0.1 103/ul Normal 0.0-0.1 [facility] Comment on above: Performed By: #### M Marcell BMP, PHOS #### [facility] [address] [place] [address] Dr. David Magana Basophils/100 WBC (Bld) 0.8 % Normal 0.2-2.0 [facility] Comment on above: Performed By: #### M G, BMP, PHOS #### [facility] [address] [place] [address] Dr. David Magana EO # 0.1 103/ul Normal 0.0-0.7 [facility] Comment on above: Performed By: #### M G, BMP, PHOS #### [facility] [address] [place] [address] Dr. David Magana Eosinophils/100 WBC (Bld) 0.6 % Critically low 0.9-7.0 [facility] Comment on above: Performed By: #### M ERICK Faith, PHOS #### [facility] [address] [place] [address] Dr. David Magana Erythrocyte distribution width (RBC) [Ratio] 13.4 % Normal 11.0-15.0 [facility] Comment on above: Performed By: #### M ERICK Faith, PHOS #### [facility] [address] [place] [address] Dr. David Magana Hematocrit (Bld) [Volume fraction] 43.2 % Normal 42.0-54.0 [facility] Comment on above: Performed By: #### ERICK Jacques, PHOS #### [facility] [address] [place] [address] Dr. David Magana Hemoglobin (Bld) [Mass/Vol] 14.2 g/dL Normal 14.0-18.0 [facility] Comment on above: Performed By: #### ERICK Jacques, PHOS #### [facility] [address] [place] [address] Dr. David Magana IG # 0.21 10e3/ul Critically high 0.00-0.03 [facility] Comment on above: Performed By: #### ERICK Jacques, PHOS #### [facility] [address] [place] [address] Dr. David Magana IG % 2.0 % Critically high 0.0-0.5 [facility] Comment on above: Performed By: #### ERICK Jacques, PHOS #### [facility] [address] [place] [address] Dr. David Magana LYMPH # 0.8 103/ul Critically low 1.2-3.8 [facility] Comment on above: Performed By: #### M ERICK Faith, PHOS #### [facility] [address] [place] [address] Dr. David Magana Lymphocytes/100 WBC (Bld) 7.7 % Critically low 20.5-60.0 [facility] Comment on above: Performed By: #### M G, BMP, PHOS #### [facility] [address] [address] [address] David Magana MANUAL DIFF REQ NO Normal [facility] Comment on above: Performed By: #### M G, BMP, PHOS #### [facility] [address] [place] [address] Dr. David Magana MCH (RBC) [Entitic mass] 33.2 pg Normal 25.9-34.0 [facility] Comment on above: Performed By: #### M G, BMP, PHOS #### [facility] [address] [address] [address] David Magana MCHC (RBC) [Mass/Vol] 32.9 g/dL Normal 29.9-35.2 [facility] Comment on above: Performed By: #### M G, BMP, PHOS #### [facility] [address] [place] [address] Dr. David Magana MCV (RBC) [Entitic vol] 100.9 fL Critically high 80.0-94.0 [facility] Comment on above: Performed By: #### M G, BMP, PHOS #### [facility] [address] [address] [address] David Magana MONO # 1.0 103/ul Critically high 0.3-0.8 [facility] Comment on above: Performed By: #### M G, BMP, PHOS #### [facility] [address] [address] [address] David Magana Monocytes/100 WBC (Bld) 10.0 % Normal 1.7-12.0 [facility] Comment on above: Performed By: #### M G, BMP, PHOS #### [facility] [address] [address] [address] David Magana NEUT # 8.1 103/ul Critically high 1.4-6.5 [facility] Comment on above: Performed By: #### M G, BMP, PHOS #### [facility] [address] [address] [address] David Magana Neutrophils/100 WBC (Bld) 78.9 % Critically high 43.0-75.0 [facility] Comment on above: Performed By: #### ERICK Jacques, PHOS #### [facility] [address] [place] [address] Dr. David Magana Platelet mean volume (Bld) [Entitic vol] 10.8 fL Normal 9.5-13.5 [facility] Comment on above: Performed By: #### ERICK Jacques, PHOS #### [facility] [address] [address] [address] David Magana PLT 172 103/ul Normal 150-450 [facility] Comment on above: Performed By: #### ERICK Jacques, PHOS #### [facility] [address] [place] [address] Dr. David Magaan RBC 4.28 106/ul Critically low 4.70-6.10 [facility] Comment on above: Performed By: #### ERICK Jacques, PHOS #### [facility] [address] [place] [address] Dr. David Magana WBC 10.3 103/ul Normal 4.0-11.0 [facility] Comment on above: Performed By: #### ERICK Jacques, PHOS #### [facility] [address] [place] [address] Dr. David Magana CULTURE URINEon 07-20-2022 CULTURE [...] F Trimethoprim/Sulfame thoxazole >=320 R F Normal [facility] Comment on above: Performed By: #### M G, BMP, PHOS #### [facility] [address] [place] [address] Dr. David Magana PROF 14(COMP METB)on 022 Albumin [Mass/Vol] 2.6 g/dL Critically low 3.4-5.0 [facility] Comment on above: Performed By: #### A 1C #### [facility] [address] [place] [address] Dr. David Magana Albumin/Globulin [Mass ratio] 0.9 {ratio} Normal [facility] Comment on above: Performed By: #### A 1C #### [facility] [address] [place] [address] Dr. David Magana ALP [Catalytic activity/Vol] 48 U/L Normal 46-116 [facility] Comment on above: Performed By: #### A 1C #### [facility] [address] [place] [address] Dr. David Magana ALT [Catalytic activity/Vol] 27 U/L Normal 16-63 [facility] Comment on above: Performed By: #### A 1C #### [facility] [address] [place] [address] Dr. David Magana Anion gap [Moles/Vol] 13.4 mmol/L Normal [facility] Comment on above: Performed By: #### A 1C #### [facility] [address] [place] [address] Dr. David Magana AST [Catalytic activity/Vol] 22 U/L Normal 15-37 [facility] Comment on above: Performed By: #### A 1C #### [facility] [address] [place] [address] Dr. David Magana Bilirubin [Mass/Vol] 0.5 mg/dL Normal 0.2-1.0 [facility] Comment on above: Performed By: #### A 1C #### [facility] [address] [place] [address] Dr. David Magana Calcium [Mass/Vol] 8.3 mg/dL Critically low 8.5-10.1 [facility] Comment on above: Performed By: #### A 1C #### [facility] [address] [address] [address] David Magana Chloride [Moles/Vol] 105 mmol/L Normal 98-107 [facility] Comment on above: Performed By: #### A 1C #### [facility] [address] [address] [address] David Magana CO2 [Moles/Vol] 21.0 mmol/L Normal 21.0-32.0 [facility] Comment on above: Performed By: #### A 1C #### [facility] [address] [address] [address] David Magana Creatinine [Mass/Vol] 1.38 mg/dL Critically high 0.70-1.30 [facility] Comment on above: Performed By: #### A 1C #### [facility] [address] [address] [address] David Magana EGFR-AF POLISH 60 mL/min/1.73m2 Normal >=60 [facility] Comment on above: Performed By: #### A 1C #### [facility] [address] [address] [address] David Magana EGFR-NON AF POLISH 49 mL/min/1.73m2 Critically low >=60 [facility] Comment on above: Performed By: #### A 1C #### [facility] [address] [address] [address] David Magana Globulin (S) [Mass/Vol] 2.8 g/dL Normal [facility] Comment on above: Performed By: #### A 1C #### [facility] [address] [address] [address] David Magana Glucose [Mass/Vol] 156 mg/dL Critically high 74-106 [facility] Comment on above: Performed By: #### A 1C #### [facility] [address] [address] [address] David Magana Potassium [Moles/Vol] 4.4 mmol/L Normal 3.5-5.1 [facility] Comment on above: Performed By: #### A 1C #### [facility] [address] [place] [address] Dr. David Magana Protein [Mass/Vol] 5.4 g/dL Critically low 6.4-8.2 [facility] Comment on above: Performed By: #### A 1C #### [facility] [address] [place] [address] Dr. David Magana Sodium [Moles/Vol] 135 mmol/L Critically low 136-145 [facility] Comment on above: Performed By: #### A 1C #### [facility] [address] [place] [address] Dr. David Magana Urea nitrogen [Mass/Vol] 40.0 mg/dL Critically high 7.0-18.0 [facility] Comment on above: Performed By: #### A 1C #### [facility] [address] [place] [address] Dr. David Magana Urea nitrogen/Creatinine [Mass ratio] 29.0 mg/mg Normal [facility] Comment on above: Performed By: #### A 1C #### [facility] [address] [place] [address] Dr. David Magana BNPon 07-19-2022 Natriuretic peptide B (Bld) [Mass/Vol] 51281.0 pg/mL Critically high <=1,800.0 [facility] Comment on above: Performed By: #### C VDTBH #### [facility] [address] [place] [address] Dr. David Magana CBC AUTO DIFFon 07-19-2022 BASO # 0.0 103/ul Normal 0.0-0.1 [facility] Comment on above: Performed By: #### C BC #### [facility] [address] [place] [address] Dr. David Magana Basophils/100 WBC (Bld) 0.3 % Normal 0.2-2.0 [facility] Comment on above: Performed By: #### C BC #### [facility] [address] [place] [address] Dr. David Magana EO # 0.0 103/ul Normal 0.0-0.7 [facility] Comment on above: Performed By: #### C BC #### [facility] [address] [address] [address] David Magana Eosinophils/100 WBC (Bld) 0.2 % Critically low 0.9-7.0 [facility] Comment on above: Performed By: #### C BC #### [facility] [address] [address] [address] David Magana Erythrocyte distribution width (RBC) [Ratio] 13.4 % Normal 11.0-15.0 [facility] Comment on above: Performed By: #### C BC #### [facility] [address] [address] [address] David Magana Hematocrit (Bld) [Volume fraction] 43.4 % Normal 42.0-54.0 [facility] Comment on above: Performed By: #### C BC #### [facility] [address] [place] [address] Dr. David Magana Hemoglobin (Bld) [Mass/Vol] 14.6 g/dL Normal 14.0-18.0 [facility] Comment on above: Performed By: #### C BC #### [facility] [address] [place] [address] Dr. David Magana IG # 0.18 10e3/ul Critically high 0.00-0.03 [facility] Comment on above: Performed By: #### C BC #### [facility] [address] [place] [address] Dr. David Magana IG % 1.5 % Critically high 0.0-0.5 [facility] Comment on above: Performed By: #### C BC #### [facility] [address] [address] [address] David Magana LYMPH # 0.8 103/ul Critically low 1.2-3.8 [facility] Comment on above: Performed By: #### C BC #### [facility] [address] [place] [address] Dr. David Magana Lymphocytes/100 WBC (Bld) 6.6 % Critically low 20.5-60.0 [facility] Comment on above: Performed By: #### C BC #### [facility] [address] [place] [address] Dr. David Magana MANUAL DIFF REQ NO Normal [facility] Comment on above: Performed By: #### C BC #### [facility] [address] [place] [address] Dr. David Magana MCH (RBC) [Entitic mass] 33.7 pg Normal 25.9-34.0 [facility] Comment on above: Performed By: #### C BC #### [facility] [address] [place] [address] Dr. David Magana MCHC (RBC) [Mass/Vol] 33.6 g/dL Normal 29.9-35.2 [facility] Comment on above: Performed By: #### C BC #### [facility] [address] [place] [address] Dr. David Magana MCV (RBC) [Entitic vol] 100.2 fL Critically high 80.0-94.0 [facility] Comment on above: Performed By: #### C BC #### [facility] [address] [place] [address] Dr. David Magana MONO # 1.1 103/ul Critically high 0.3-0.8 [facility] Comment on above: Performed By: #### C BC #### [facility] [address] [place] [address] Dr. David Magana Monocytes/100 WBC (Bld) 9.3 % Normal 1.7-12.0 [facility] Comment on above: Performed By: #### C BC #### [facility] [address] [place] [address] Dr. David Magana NEUT # 9.6 103/ul Critically high 1.4-6.5 [facility] Comment on above: Performed By: #### C BC #### [facility] [address] [place] [address] Dr. David Magana Neutrophils/100 WBC (Bld) 82.1 % Critically high 43.0-75.0 [facility] Comment on above: Performed By: #### C BC #### [facility] [address] [place] [address] Dr. David Magana Platelet mean volume (Bld) [Entitic vol] 10.8 fL Normal 9.5-13.5 [facility] Comment on above: Performed By: #### C BC #### [facility] [address] [place] [address] Dr. David Magana PLT 202 103/ul Normal 150-450 [facility] Comment on above: Performed By: #### C BC #### [facility] [address] [address] [address] David Magana RBC 4.33 106/ul Critically low 4.70-6.10 [facility] Comment on above: Performed By: #### C BC #### [facility] [address] [place] [address] Dr. David Magana WBC 11.7 103/ul Critically high 4.0-11.0 [facility] Comment on above: Performed By: #### C BC #### [facility] [address] [place] [address] Dr. David Magana PROF 14(COMP METB)on 022 Albumin [Mass/Vol] 3.4 g/dL Normal 3.4-5.0 [facility] Comment on above: Performed By: #### A 1C #### [facility] [address] [place] [address] Dr. David Magana Albumin/Globulin [Mass ratio] 1.1 {ratio} Normal [facility] Comment on above: Performed By: #### A 1C #### [facility] [address] [place] [address] Dr. David Magana ALP [Catalytic activity/Vol] 63 U/L Normal 46-116 [facility] Comment on above: Performed By: #### A 1C #### [facility] [address] [place] [address] Dr. David Magana ALT [Catalytic activity/Vol] 34 U/L Normal 16-63 [facility] Comment on above: Performed By: #### A 1C #### [facility] [address] [address] [address] David Magana Anion gap [Moles/Vol] 20.9 mmol/L Normal Th [facility] Comment on above: Performed By: #### A 1C #### [facility] [address] [address] [address] David Magana AST [Catalytic activity/Vol] 18 U/L Normal 15-37 [facility] Comment on above: Performed By: #### A 1C #### [facility] [address] [address] [address] David Magana Bilirubin [Mass/Vol] 0.5 mg/dL Normal 0.2-1.0 [facility] Comment on above: Performed By: #### A 1C #### [facility] [address] [place] [address] Dr. David Magana Calcium [Mass/Vol] 8.5 mg/dL Normal 8.5-10.1 [facility] Comment on above: Performed By: #### A 1C #### [facility] [address] [address] [address] David Magana Chloride [Moles/Vol] 99 mmol/L Normal 98-107 [facility] Comment on above: Performed By: #### A 1C #### [facility] [address] [place] [address] Dr. David Magana CO2 [Moles/Vol] 19.1 mmol/L Critically low 21.0-32.0 [facility] Comment on above: Performed By: #### A 1C #### [facility] [address] [address] [address] David Magana Creatinine [Mass/Vol] 1.80 mg/dL Critically high 0.70-1.30 [facility] Comment on above: Performed By: #### A 1C #### [facility] [address] [place] [address] Dr. David Magana EGFR-AF POLISH 44 mL/min/1.73m2 Critically low >=60 [facility] Comment on above: Performed By: #### A 1C #### [facility] [address] [address] [address] David Magana EGFR-NON AF POLISH 36 mL/min/1.73m2 Critically low >=60 [facility] Comment on above: Performed By: #### A 1C #### [facility] [address] [place] [address] Dr. David Magana Globulin (S) [Mass/Vol] 3.2 g/dL Normal [facility] Comment on above: Performed By: #### A 1C #### [facility] [address] [address] [address] David Magana Glucose [Mass/Vol] 287 mg/dL Critically high 74-106 [facility] Comment on above: Performed By: #### A 1C #### [facility] [address] [place] [address] Dr. David Magana Potassium [Moles/Vol] 5.0 mmol/L Normal 3.5-5.1 [facility] Comment on above: Performed By: #### A 1C #### [facility] [address] [place] [address] Dr. David Magana Protein [Mass/Vol] 6.6 g/dL Normal 6.4-8.2 [facility] Comment on above: Performed By: #### A 1C #### [facility] [address] [place] [address] Dr. David Magana Sodium [Moles/Vol] 134 mmol/L Critically low 136-145 Th [facility] Comment on above: Performed By: #### A 1C #### [facility] [address] [place] [address] Dr. David Magana Urea nitrogen [Mass/Vol] 51.0 mg/dL Critically high 7.0-18.0 [facility] Comment on above: Performed By: #### A 1C #### [facility] [address] [place] [address] Dr. David Magana Urea nitrogen/Creatinine [Mass ratio] 28.3 mg/mg Normal [facility] Comment on above: Performed By: #### A 1C #### [facility] [address] [place] [address] Dr. Dvaid Magana BLOOD GASES [facility] 07-18-2022 02 MODE NASAL CANNULA Normal [facility] Comment on above: Performed By: #### A 1C #### [facility] [address] [place] [address] Dr. David Magana ALLENS TEST Positive [facility] Comment on above: Performed By: #### A 1C #### [facility] [address] [place] [address] Dr. David Magana Base excess Calc (Bld) [Moles/Vol] -9.0000 mmol/L Critically low -2.0-2.0 [facility] Comment on above: Performed By: #### A 1C #### [facility] [address] [place] [address] Dr. David Magana BIPAP PRESSURE [facility] Comment on above: Performed By: #### A 1C #### [facility] [address] [place] [address] Dr. David Magana CPAP [facility] Comment on above: Performed By: #### A 1C #### [facility] [address] [place] [address] Dr. David Magana FIO2 [facility] Comment on above: Performed By: #### A 1C #### [facility] [address] [place] [address] Dr. David Magana HCO3 (Bld) [Moles/Vol] 18.4 mmol/L Critically low 22.0-26.0 [facility] Comment on above: Performed By: #### A 1C #### [facility] [address] [place] [address] Dr. David Magana LPM 1.5 [facility] Comment on above: Performed By: #### A 1C #### [facility] [address] [place] [address] Dr. David Magana MINUTE VOLUME Normal [facility] Comment on above: Performed By: #### A 1C #### [facility] [address] [place] [address] Dr. David Magana Oxygen (Bld) [Partial pressure] 69.5 mm[Hg] Critically low 80.0-100.0 [facility] Comment on above: Performed By: #### A 1C #### [facility] [address] [place] [address] Dr. David Magana Oxygen saturation in Blood 94.2 % Critically low 95.0-100.0 [facility] Comment on above: Performed By: #### A 1C #### [facility] [address] [place] [address] Dr. David Magana PCO2 29.6 mmHg Critically low 35.0-45.0 [facility] Comment on above: Performed By: #### A 1C #### [facility] [address] [place] [address] Dr. David Magana [facility] Comment on above: Performed By: #### A 1C #### [facility] [address] [place] [address] Dr. David Magana pH (Bld) 7.355 [pH] Normal 7.350-7.450 [facility] Comment on above: Performed By: #### A 1C #### [facility] [address] [place] [address] Dr. David Magana [facility] Comment on above: Performed By: #### A 1C #### [facility] [address] [place] [address] Dr. David Magana [facility] Comment on above: Performed By: #### A 1C #### [facility] [address] [place] [address] Dr. David Magana PUNCTURE SITE LR [facility] Comment on above: Performed By: #### A 1C #### [facility] [address] [place] [address] Dr. David Magnaa RATE [facility] Comment on above: Performed By: #### A 1C #### [facility] [address] [place] [address] Dr. David Magana VENT MODE [facility] Comment on above: Performed By: #### A 1C #### [facility] [address] [place] [address] Dr. David Magana [place] Normal [facility] Comment on above: Performed By: #### A 1C #### [facility] [address] [place] [address] Dr. David Magana BNPon 07-18-2022 Natriuretic peptide B (Bld) [Mass/Vol] 7047.0 pg/mL Critically high <=1,800.0 [facility] Comment on above: Performed By: #### C VDTBH #### [facility] [address] [place] [address] Dr. David Magana CARDIAC BARRIE 3-6on 2 CK [Catalytic activity/Vol] 396 U/L Critically high 39-308 [facility] Comment on above: Performed By: #### M ERICK Faith, PHOS #### [facility] [address] [place] [address] Dr. David Magana CK.MB [Mass/Vol] 2.94 ng/mL Normal <=3.60 [facility] Comment on above: Performed By: #### ERICK Jacques, PHOS #### [facility] [address] [place] [address] Dr. David Magana HSTROP 11.1 pg/mL Normal 4.0-76.1 [facility] Comment on above: Result Comment: CUT- OFF POINTS HAVE BEEN ESTABLISHED BASED ON THE FOURTH UNIVERSAL DEFINITIONS OF MYOCARDIAL INFARCTION. THE UPPER REFERENCE LIMIT (URL) OF TROPONIN, DEFINED THE 99TH PERCENTILE OF cTnI DISTRIBUTION IN A REFERENCE POPULATION, HAS BEEN CONFIRMED THE DECISION THRESHOLD FOR ID DIAGNOSIS. Performed By: #### M Marcell BMP, PHOS #### [facility] [address] [place] [address] Dr. David Magana CK [Catalytic activity/Vol] 58 U/L Normal 39-308 [facility] Comment on above: Performed By: #### M ERICK Faith, PHOS #### [facility] [address] [place] [address] Dr. David Magana CK.MB [Mass/Vol] 1.71 ng/mL Normal <=3.60 [facility] Comment on above: Performed By: #### M Marcell BMP, PHOS #### [facility] [address] [place] [address] Dr. David Magana HSTROP 10.6 pg/mL Normal 4.0-76.1 [facility] Comment on above: Result Comment: CUT- OFF POINTS HAVE BEEN ESTABLISHED BASED ON THE FOURTH UNIVERSAL DEFINITIONS OF MYOCARDIAL INFARCTION. THE UPPER REFERENCE LIMIT (URL) OF TROPONIN, DEFINED THE 99TH PERCENTILE OF cTnI DISTRIBUTION IN A REFERENCE POPULATION, HAS BEEN CONFIRMED THE DECISION THRESHOLD FOR ID DIAGNOSIS. Performed By: #### M G, BMP, PHOS #### [facility] [address] [place] [address] Dr. David Magana CBC AUTO DIFFon 07-18-2022 BASO # 0.0 103/ul Normal 0.0-0.1 [facility] Comment on above: Performed By: #### M G, BMP, PHOS #### [facility] [address] [place] [address] Dr. David Magana Basophils/100 WBC (Bld) 0.2 % Normal 0.2-2.0 [facility] Comment on above: Performed By: #### M G, BMP, PHOS #### [facility] [address] [place] [address] Dr. David Magana EO # 0.0 103/ul Normal 0.0-0.7 [facility] Comment on above: Performed By: #### M G, BMP, PHOS #### [facility] [address] [address] [address] David Magana Eosinophils/100 WBC (Bld) 0.2 % Critically low 0.9-7.0 [facility] Comment on above: Performed By: #### M G, BMP, PHOS #### [facility] [address] [place] [address] Dr. David Magana Erythrocyte distribution width (RBC) [Ratio] 13.2 % Normal 11.0-15.0 [facility] Comment on above: Performed By: #### M G, BMP, PHOS #### [facility] [address] [place] [address] Dr. David Magana Hematocrit (Bld) [Volume fraction] 43.8 % Normal 42.0-54.0 [facility] Comment on above: Performed By: #### M ERICK Faith, PHOS #### [facility] [address] [place] [address] Dr. David Magana Hemoglobin (Bld) [Mass/Vol] 14.5 g/dL Normal 14.0-18.0 [facility] Comment on above: Performed By: #### ERICK Jacques, PHOS #### [facility] [address] [place] [address] Dr. David Magana IG # 0.15 10e3/ul Critically high 0.00-0.03 [facility] Comment on above: Performed By: #### ERICK Jacques, PHOS #### [facility] [address] [place] [address] Dr. David Magana IG % 1.3 % Critically high 0.0-0.5 [facility] Comment on above: Performed By: #### ERICK Jacques, PHOS #### [facility] [address] [place] [address] Dr. David Magana LYMPH # 0.5 103/ul Critically low 1.2-3.8 [facility] Comment on above: Performed By: #### ERICK Jacques, PHOS #### [facility] [address] [place] [address] Dr. David Magana Lymphocytes/100 WBC (Bld) 3.8 % Critically low 20.5-60.0 [facility] Comment on above: Performed By: #### ERICK Jacques, PHOS #### [facility] [address] [place] [address] Dr. David Magana MANUAL DIFF REQ NO Normal [facility] Comment on above: Performed By: #### ERICK Jacques, PHOS #### [facility] [address] [place] [address] Dr. David Magana MCH (RBC) [Entitic mass] 32.7 pg Normal 25.9-34.0 [facility] Comment on above: Performed By: #### ERICK Jacques, PHOS #### [facility] [address] [place] [address] Dr. David Magana MCHC (RBC) [Mass/Vol] 33.1 g/dL Normal 29.9-35.2 [facility] Comment on above: Performed By: #### M G, BMP, PHOS #### [facility] [address] [place] [address] Dr. David Magana MCV (RBC) [Entitic vol] 98.9 fL Critically high 80.0-94.0 [facility] Comment on above: Performed By: #### M G, BMP, PHOS #### [facility] [address] [place] [address] Dr. David Magana MONO # 0.7 103/ul Normal 0.3-0.8 [facility] Comment on above: Performed By: #### M G, BMP, PHOS #### [facility] [address] [place] [address] Dr. David Magana Monocytes/100 WBC (Bld) 5.7 % Normal 1.7-12.0 [facility] Comment on above: Performed By: #### M G, BMP, PHOS #### [facility] [address] [place] [address] Dr. David Magana NEUT # 10.4 103/ul Critically high 1.4-6.5 [facility] Comment on above: Performed By: #### M G, BMP, PHOS #### [facility] [address] [place] [address] Dr. David Magana Neutrophils/100 WBC (Bld) 88.8 % Critically high 43.0-75.0 [facility] Comment on above: Performed By: #### M G, BMP, PHOS #### [facility] [address] [place] [address] Dr. David Magana Platelet mean volume (Bld) [Entitic vol] 11.0 fL Normal 9.5-13.5 [facility] Comment on above: Performed By: #### M G, BMP, PHOS #### [facility] [address] [place] [address] Dr. David Magana PLT 198 103/ul Normal 150-450 [facility] Comment on above: Performed By: #### M ERICK Faith, PHOS #### [facility] [address] [address] [address] David Magana RBC 4.43 106/ul Critically low 4.70-6.10 [facility] Comment on above: Performed By: #### M ERICK Faith, PHOS #### [facility] [address] [address] [address] David Magana WBC 11.8 103/ul Critically high 4.0-11.0 [facility] Comment on above: Performed By: #### ERICK Jacques, PHOS #### [facility] [address] [address] [address] HEAD WO CONon [...] FRANCISCO ZELAYA Date: 2022-07-18 05:12 Normal [facility] Covid-19 PCR (CVDTB)on SARS-CoV-2 (COVID-19) RNA SULTANA+probe Ql (Unsp spec) Detected Critically abnormal NOT DETECTED [facility] Comment on above: Result Comment: This test is not yet approved or cleared by the [place] FDA. When there are no FDA-approved or cleared tests available, and other criteria are met, FDA can make tests available under an emergency access mechanism called an Emergency Use Authorization (EUA). The EUA for this test is supported by the [employer] of Health and Human Service's declaration that [...] used). Performed By: #### C VDTBH #### [facility] [address] [place] [address] Dr. David Magana D-DIMERon 07-18-2022 D-DIMER 1.69 mg/L FEU Critically high <=0.59 [facility] Comment on above: Performed By: #### C BC #### [facility] [address] [place] [address] Dr. David Magana D-DIMER COMMENTS SEE BELOW Normal [facility] Comment on above: Result Comment: Incr eases [...] hospitalization. Performed By: #### C BC #### [facility] [address] [place] [address] Dr. David Magana POINT OF CARE GLUCOSEon - Glucose [Mass/Vol] 329 mg/dL Critically high 74-106 [facility] Comment on above: Performed By: #### P OCGLUC #### [facility] [address] [place] [address] Dr. David Magana Glucose [Mass/Vol] 354 mg/dL Critically high 74-106 [facility] Comment on above: Performed By: #### P OCGLUC #### [facility] [address] [place] [address] Dr. David Magana PROF 14(COMP METB)on 022 Albumin [Mass/Vol] 3.6 g/dL Normal 3.4-5.0 [facility] Comment on above: Performed By: #### C VDTBH #### [facility] [address] [address] [address] David Magana Albumin/Globulin [Mass ratio] 1.1 {ratio} Normal [facility] Comment on above: Performed By: #### C VDTBH #### [facility] [address] [address] [address] David Magana ALP [Catalytic activity/Vol] 67 U/L Normal 46-116 [facility] Comment on above: Performed By: #### C VDTBH #### [facility] [address] [place] [address] Dr. David Magana ALT [Catalytic activity/Vol] 33 U/L Normal 16-63 [facility] Comment on above: Performed By: #### C VDTBH #### [facility] [address] [address] [address] David Magana Anion gap [Moles/Vol] 23.5 mmol/L Normal [facility] Comment on above: Performed By: #### C VDTBH #### [facility] [address] [place] [address] Dr. David Magana AST [Catalytic activity/Vol] 13 U/L Critically low 15-37 [facility] Comment on above: Performed By: #### C VDTBH #### [facility] [address] [address] [address] David Magana Bilirubin [Mass/Vol] 0.6 mg/dL Normal 0.2-1.0 [facility] Comment on above: Performed By: #### C VDTBH #### [facility] [address] [address] [address] David Magana Calcium [Mass/Vol] 8.4 mg/dL Critically low 8.5-10.1 [facility] Comment on above: Performed By: #### C VDTBH #### [facility] [address] [address] [address] David Magana Chloride [Moles/Vol] 93 mmol/L Critically low 98-107 [facility] Comment on above: Performed By: #### C VDTBH #### [facility] [address] [place] [address] Dr. David Magana CO2 [Moles/Vol] 17.9 mmol/L Critically low 21.0-32.0 [facility] Comment on above: Performed By: #### C VDTBH #### [facility] [address] [place] [address] Dr. David Magana Creatinine [Mass/Vol] 2.15 mg/dL Critically high 0.70-1.30 [facility] Comment on above: Performed By: #### C VDTBH #### [facility] [address] [place] [address] Dr. David Magana EGFR-AF POLISH 36 mL/min/1.73m2 Critically low >=60 [facility] Comment on above: Performed By: #### C VDTBH #### [facility] [address] [place] [address] Dr. David Magana EGFR-NON AF POLISH 30 mL/min/1.73m2 Critically low >=60 [facility] Comment on above: Performed By: #### C VDTBH #### [facility] [address] [place] [address] Dr. David Magana Globulin (S) [Mass/Vol] 3.2 g/dL Normal [facility] Comment on above: Performed By: #### C VDTBH #### [facility] [address] [place] [address] Dr. David Magana Glucose [Mass/Vol] 345 mg/dL Critically high 74-106 [facility] Comment on above: Performed By: #### C VDTBH #### [facility] [address] [place] [address] Dr. David Magana Potassium [Moles/Vol] 5.4 mmol/L Critically high 3.5-5.1 [facility] Comment on above: Performed By: #### C VDTBH #### [facility] [address] [place] [address] Dr. David Magana Performed By: #### K #### [facility] [address] [place] [address] Dr. David Magana Protein [Mass/Vol] 6.8 g/dL Normal 6.4-8.2 [facility] Comment on above: Performed By: #### C VDTBH #### [facility] [address] [place] [address] Dr. David Magana Sodium [Moles/Vol] 129 mmol/L Critically low 136-145 [facility] Comment on above: Performed By: #### C VDTBH #### [facility] [address] [place] [address] Dr. David Magana Urea nitrogen [Mass/Vol] 65.0 mg/dL Critically high 7.0-18.0 [facility] Comment on above: Performed By: #### C VDTBH #### [facility] [address] [place] [address] Dr. David Magana Urea nitrogen/Creatinine [Mass ratio] 30.2 mg/mg Normal [facility] Comment on above: Performed By: #### C VDTBH #### [facility] [address] [place] [address] Dr. David Magana UA RANDOM W/MICROSCOPICon BACTERIA NONE SEEN Normal NONE SEEN [facility] Comment on above: Performed By: #### M Marcell BMP, PHOS #### [facility] [address] [place] [address] Dr. David Magana Bilirubin Ql (U) Negative Normal NEGATIVE [facility] Comment on above: Performed By: #### M G, BMP, PHOS #### [facility] [address] [place] [address] Dr. David Magana CAST NONE SEEN Normal NONE SEEN [facility] Comment on above: Performed By: #### M G, BMP, PHOS #### [facility] [address] [place] [address] Dr. David Magana Clarity (U) CLEAR Normal CLEAR [facility] Comment on above: Performed By: #### M G, BMP, PHOS #### [facility] [address] [address] [address] David Magana Color (U) LT. YELLOW Normal YELLOW [facility] Comment on above: Performed By: #### M G, BMP, PHOS #### [facility] [address] [address] [address] David Magana Crystals LM Nom (Urine sed) NONE SEEN Normal NONE SEEN [facility] Comment on above: Performed By: #### M G, BMP, PHOS #### [facility] [address] [address] [address] David Magana Epithelial cells LM Ql (Urine sed) RARE Normal NONE SEEN /RARE [facility] Comment on above: Performed By: #### M G, BMP, PHOS #### [facility] [address] [place] [address] Dr. David Magana Glucose Ql (U) 1000 mg/dl Abnormal NEGATIVE [facility] Comment on above: Performed By: #### M G, BMP, PHOS #### [facility] [address] [address] [address] David Magana Hemoglobin Ql (U) Negative Normal NEGATIVE [facility] Comment on above: Performed By: #### M G, BMP, PHOS #### [facility] [address] [place] [address] Dr. David Magana Ketones Ql (U) 15 mg/dl Abnormal NEGATIVE [facility] Comment on above: Performed By: #### M G, BMP, PHOS #### [facility] [address] [address] [address] David Magana LEUKOCYTES Negative Normal NEGATIVE [facility] Comment on above: Performed By: #### M G, BMP, PHOS #### [facility] [address] [address] [address] David Magana MUCOUS NONE SEEN Normal NONE SEEN [facility] Comment on above: Performed By: #### M G, BMP, PHOS #### [facility] [address] [place] [address] Dr. David Magana Nitrite Ql (U) Negative Normal NEGATIVE [facility] Comment on above: Performed By: #### M G, BMP, PHOS #### [facility] [address] [place] [address] Dr. David Magana pH (U) 5.5 [pH] Normal 5-9 [facility] Comment on above: Performed By: #### M G BMP, PHOS #### [facility] [address] [place] [address] Dr. David Magana RBC NONE SEEN Abnormal 0-2 [facility] Comment on above: Performed By: #### M G, BMP, PHOS #### [facility] [address] [place] [address] Dr. David Magana SPEC GRAVITY <=1.005 Abnormal 1.005-<=1.025 [facility] Comment on above: Performed By: #### M Marcell BMP, PHOS #### [facility] [address] [place] [address] Dr. David Magana UA PROTEIN Negative Normal NEGATIVE/ TRACE [facility] Comment on above: Performed By: #### M Marcell BMP, PHOS #### [facility] [address] [place] [address] Dr. David Magana Urobilinogen Qn (U) 0.2 {Dionna'U}/dL Normal 0.2 - 1. 0 [facility] Comment on above: Performed By: #### M Marcell BMP, PHOS #### [facility] [address] [place] [address] Dr. David Magana WBC NONE SEEN Normal NONE SEEN [facility] Comment on above: Performed By: #### M G, BMP, PHOS #### [facility] [address] [place] [address] Dr. David Magana XR CHEST 1 Von [...] Yefri DWYER Date: 2022-07-18 00:09 Normal [facility] CARDIAC BARRIE ADMITon 022 CK [Catalytic activity/Vol] 61 U/L Normal 39-308 [facility] Comment on above: Performed By: #### C BC #### [facility] [address] [address] [address] David Magana CK.MB [Mass/Vol] 1.84 ng/mL Normal <=3.60 [facility] Comment on above: Performed By: #### C BC #### [facility] [address] [place] [address] Dr. David Magana HSTROP 9.4 pg/mL Normal 4.0-76.1 [facility] Comment on above: Result Comment: CUT- OFF POINTS HAVE BEEN ESTABLISHED BASED ON THE FOURTH UNIVERSAL DEFINITIONS OF MYOCARDIAL INFARCTION. THE UPPER REFERENCE LIMIT (URL) OF TROPONIN, DEFINED THE 99TH PERCENTILE OF cTnI DISTRIBUTION IN A REFERENCE POPULATION, HAS BEEN CONFIRMED THE DECISION THRESHOLD FOR ID DIAGNOSIS. Performed By: #### C BC #### [facility] [address] [address] [address] David Magana DUSTIN 533 ng/mL Critically high 16-96 [facility] Comment on above: Performed By: #### C BC #### [facility] [address] [address] [address] David Magana CBC AUTO DIFFon 07-17-2022 BASO # 0.0 103/ul Normal 0.0-0.1 [facility] Comment on above: Performed By: #### M ERICK Faith, PHOS #### [facility] [address] [place] [address] Dr. David Magana Basophils/100 WBC (Bld) 0.2 % Normal 0.2-2.0 [facility] Comment on above: Performed By: #### M ERICK Faith, PHOS #### [facility] [address] [place] [address] Dr. David Magana EO # 0.0 103/ul Normal 0.0-0.7 [facility] Comment on above: Performed By: #### M ERICK Faith, PHOS #### [facility] [address] [place] [address] Dr. David Magana Eosinophils/100 WBC (Bld) 0.1 % Critically low 0.9-7.0 [facility] Comment on above: Performed By: #### M ERICK Faith, PHOS #### [facility] [address] [place] [address] Dr. David Magana Erythrocyte distribution width (RBC) [Ratio] 13.2 % Normal 11.0-15.0 [facility] Comment on above: Performed By: #### M ERICK Faith, PHOS #### [facility] [address] [place] [address] Dr. David Magana Hematocrit (Bld) [Volume fraction] 43.1 % Normal 42.0-54.0 [facility] Comment on above: Performed By: #### M ERICK Faith, PHOS #### [facility] [address] [place] [address] Dr. David Magana Hemoglobin (Bld) [Mass/Vol] 14.5 g/dL Normal 14.0-18.0 [facility] Comment on above: Performed By: #### M ERICK Faith, PHOS #### [facility] [address] [place] [address] Dr. David Magana IG # 0.14 10e3/ul Critically high 0.00-0.03 [facility] Comment on above: Performed By: #### M Marcell BMP, PHOS #### [facility] [address] [place] [address] Dr. David Magana IG % 1.2 % Critically high 0.0-0.5 [facility] Comment on above: Performed By: #### M G, BMP, PHOS #### [facility] [address] [place] [address] Dr. David Magana LYMPH # 0.4 103/ul Critically low 1.2-3.8 [facility] Comment on above: Performed By: #### M G, BMP, PHOS #### [facility] [address] [address] [address] David Magana Lymphocytes/100 WBC (Bld) 3.4 % Critically low 20.5-60.0 [facility] Comment on above: Performed By: #### M G, BMP, PHOS #### [facility] [address] [place] [address] Dr. David Magana MANUAL DIFF REQ NO Normal [facility] Comment on above: Performed By: #### M G, BMP, PHOS #### [facility] [address] [place] [address] Dr. David Magana MCH (RBC) [Entitic mass] 33.3 pg Normal 25.9-34.0 [facility] Comment on above: Performed By: #### M Marcell, BMP, PHOS #### [facility] [address] [place] [address] Dr. David Magana MCHC (RBC) [Mass/Vol] 33.6 g/dL Normal 29.9-35.2 [facility] Comment on above: Performed By: #### M Marcell, BMP, PHOS #### [facility] [address] [place] [address] Dr. David Magana MCV (RBC) [Entitic vol] 98.9 fL Critically high 80.0-94.0 [facility] Comment on above: Performed By: #### M Marcell, BMP, PHOS #### [facility] [address] [place] [address] Dr. David Magana MONO # 1.1 103/ul Critically high 0.3-0.8 [facility] Comment on above: Performed By: #### M Marcell, BMP, PHOS #### [facility] [address] [place] [address] Dr. David Magana Monocytes/100 WBC (Bld) 8.9 % Normal 1.7-12.0 [facility] Comment on above: Performed By: #### M Marcell, BMP, PHOS #### [facility] [address] [address] [address] David Magana NEUT # 10.3 103/ul Critically high 1.4-6.5 [facility] Comment on above: Performed By: #### ERICK Jacques, PHOS #### [facility] [address] [place] [address] Dr. David Magana Neutrophils/100 WBC (Bld) 86.2 % Critically high 43.0-75.0 [facility] Comment on above: Performed By: #### ERICK Jacques, PHOS #### [facility] [address] [place] [address] Dr. David Magana Platelet mean volume (Bld) [Entitic vol] 11.1 fL Normal 9.5-13.5 [facility] Comment on above: Performed By: #### ERICK Jacques, PHOS #### [facility] [address] [place] [address] Dr. David Magana PLT 229 103/ul Normal 150-450 [facility] Comment on above: Performed By: #### ERICK Jacques, PHOS #### [facility] [address] [place] [address] Dr. David Magana RBC 4.36 106/ul Critically low 4.70-6.10 [facility] Comment on above: Performed By: #### ERICK Jacques, PHOS #### [facility] [address] [place] [address] Dr. David Magana WBC 11.9 103/ul Critically high 4.0-11.0 [facility] Comment on above: Performed By: #### M ERICK Faith, PHOS #### [facility] [address] [place] [address] Dr. David Magana PROF CHEM 8 (BAS METB)on Anion gap [Moles/Vol] 26.5 mmol/L Normal [facility] Comment on above: Performed By: #### C BC #### [facility] [address] [place] [address] Dr. David Magana Calcium [Mass/Vol] 8.2 mg/dL Critically low 8.5-10.1 [facility] Comment on above: Performed By: #### C BC #### [facility] [address] [address] [address] David Magana Chloride [Moles/Vol] 89 mmol/L Critically low 98-107 [facility] Comment on above: Performed By: #### C BC #### [facility] [address] [address] [address] David Magana CO2 [Moles/Vol] 14.5 mmol/L Critically low 21.0-32.0 [facility] Comment on above: Performed By: #### C BC #### [facility] [address] [address] [address] David Magana Creatinine [Mass/Vol] 2.78 mg/dL Critically high 0.70-1.30 [facility] Comment on above: Performed By: #### C BC #### [facility] [address] [address] [address] David Magana EGFR-AF POLISH 27 mL/min/1.73m2 Critically low >=60 [facility] Comment on above: Performed By: #### C BC #### [facility] [address] [address] [address] David Magana EGFR-NON AF POLISH 22 mL/min/1.73m2 Critically low >=60 [facility] Comment on above: Performed By: #### C BC #### [facility] [address] [address] [address] David Magana Glucose [Mass/Vol] 442 mg/dL Critically high 74-106 [facility] Comment on above: Performed By: #### C BC #### [facility] [address] [address] [address] David Magana Potassium [Moles/Vol] 6.0 mmol/L Critically high 3.5-5.1 [facility] Comment on above: Performed By: #### C BC #### [facility] [address] [address] [address] David Magana Sodium [Moles/Vol] 124 mmol/L Critically low 136-145 [facility] Comment on above: Performed By: #### C BC #### [facility] [address] [place], [place] [address] Dr. David Magana Urea nitrogen [Mass/Vol] 73.0 mg/dL Critically high 7.0-18.0 [facility] Comment on above: Performed By: #### C BC #### [facility] [address] [place], [place] [address] Dr. David Magana Urea nitrogen/Creatinine [Mass ratio] 26.3 mg/mg Normal [facility] Comment on above: Performed By: #### C BC #### [facility] [address] [place], [place] [address] Dr. David Magana Covid-19 PCR ([facility])on 06-16 SARS-CoV-2 (COVID-19) RNA SULTANA+probe Ql (Unsp spec) Detected Critically abnormal NOT DETECTED [facility] Comment on above: Result Comment: This test is not yet approved or cleared by the [place] FDA. When there are no FDA-approved or cleared tests available, and other criteria are met, FDA can make tests available under an emergency access mechanism called an Emergency Use Authorization (EUA). The EUA for this test is supported by the [employer] of Health and Human Service's (HHS's) declaration [...] be used). Performed By: #### M G, BMP, PHOS #### [facility] [address] [place], [place] [address] Dr. David Magana ECHOCARDIO M/2D COMPLETEon 0 07-01-2022 ECHOCARDIO M/2D COMPLETE Patient: NADIR HEREDIA Exam Date: 07/01/2022 : 1940 Gender:M Ordering : DR CLARIBEL PUGA M.D. Admission #: [id number] Family : DR VAN SUNG . Order #: [id number] CLICK HERE TO VIEW EXAM ECHOCARDIOGRAM REPORT [...] M.D. on 07/01/2022 at 16:27 Normal [facility] Covid-19 PCR ([facility])on SARS-CoV-2 (COVID-19) RNA SULTANA+probe Ql (Unsp spec) Not detected Normal NOT DETECTED [facility] Comment on above: Result Comment: When diagnostic [...] for this test is supported by the [place] of Health and Human Service's declaration that [...] used). Performed By: #### C VDTB #### [facility] [address] [place] [address] Dr. David Magana CREATININE URINEon 2 URINE CREAT 14.70 mg/dL Critically low 20.00-300.00 [facility] Comment on above: Performed By: #### M ERICK Faith, PHOS #### [facility] [address] [place] [address] Dr. David Magana GLYCOHEMOGLOBIN A1Con 2021 ADA RECOMMENDATION SEE BELOW Normal [facility] Comment on above: Result Comment: ADA RECOMMENDED LIMIT 4.0 - 6.0 ADA THERAPEUTIC TARGET < 7.0 ACTION SUGGESTED > 7.0 Performed By: #### A 1C #### [facility] [address] [place] [address] Dr. David Magana Glucose [Mass/Vol] 209 mg/dL Normal [facility] Comment on above: Performed By: #### A 1C #### [facility] [address] [place] [address] Dr. David Magana HbA1c (Bld) [Mass fraction] 8.9 % Critically high 4.5-6.2 [facility] Comment on above: Performed By: #### A 1C #### [facility] [address] [place] [address] Dr. David Magana MAGNESIUMon 06-08-2022 Magnesium [Mass/Vol] 2.3 mg/dL Normal 1.8-2.4 [facility] Comment on above: Performed By: #### ERICK Jacques, PHOS #### [facility] [address] [place] [address] Dr. David Magana PHOSPHORUSon 06-08-2022 Phosphate [Mass/Vol] 3.5 mg/dL Normal 2.6-4.7 [facility] Comment on above: Performed By: #### ERICK Jacques, PHOS #### [facility] [address] [place] [address] Dr. David Magana PROF CHEM 8 (BAS METB)on Anion gap [Moles/Vol] 10.6 mmol/L Normal [facility] Comment on above: Performed By: #### M G, BMP, PHOS #### [facility] [address] [address] [address] David Magana Calcium [Mass/Vol] 9.2 mg/dL Normal 8.5-10.1 [facility] Comment on above: Performed By: #### M G, BMP, PHOS #### [facility] [address] [address] [address] David Magana Chloride [Moles/Vol] 102 mmol/L Normal 98-107 [facility] Comment on above: Performed By: #### M G, BMP, PHOS #### [facility] [address] [address] [address] David Magana CO2 [Moles/Vol] 30.1 mmol/L Normal 21.0-32.0 [facility] Comment on above: Performed By: #### M G, BMP, PHOS #### [facility] [address] [address] [address] David Magana Creatinine [Mass/Vol] 1.70 mg/dL Critically high 0.70-1.30 [facility] Comment on above: Performed By: #### M G, BMP, PHOS #### [facility] [address] [address] [address] David Magana EGFR-AF POLISH 47 mL/min/1.73m2 Critically low >=60 [facility] Comment on above: Performed By: #### M G, BMP, PHOS #### [facility] [address] [address] [address] David Magana EGFR-NON AF POLISH 39 mL/min/1.73m2 Critically low >=60 [facility] Comment on above: Performed By: #### M G, BMP, PHOS #### [facility] [address] [address] [address] David Magana Glucose [Mass/Vol] 197 mg/dL Critically high 74-106 [facility] Comment on above: Performed By: #### M ERICK Faith, PHOS #### [facility] [address] [place] [address] Dr. David Magana Potassium [Moles/Vol] 4.7 mmol/L Normal 3.5-5.1 [facility] Comment on above: Performed By: #### M ERICK Faith, PHOS #### [facility] [address] [place] [address] Dr. David Magana Sodium [Moles/Vol] 138 mmol/L Normal 136-145 [facility] Comment on above: Performed By: #### ERICK Jacques, PHOS #### [facility] [address] [place] [address] Dr. David Magana Urea nitrogen [Mass/Vol] 25.0 mg/dL Critically high 7.0-18.0 [facility] Comment on above: Performed By: #### ERICK Jacques, PHOS #### [facility] [address] [place] [address] Dr. David Magana Urea nitrogen/Creatinine [Mass ratio] 14.7 mg/mg Normal [facility] Comment on above: Performed By: #### ERICK Jacques, PHOS #### [facility] [address] [place] [address] Dr. David Magana PROTEIN RAND URINEon 022 UR PROT <5.0 Normal <=11.9 [facility] Comment on above: Performed By: #### C REAU, PROTU #### [facility] [address] [place] [address] Dr. David Magana BILIRUBIN CONJUGATED (DIRECT )on 04-28-2022 BILI, CONJUGATED 0.1 mg/dL Normal 0.0-0.2 [facility] Comment on above: Performed By: #### P OCGLUC #### [facility] [address] [place] [address] Dr. David Magana CBC AUTO DIFFon 04-28-2022 BASO # 0.1 103/ul Normal 0.0-0.1 [facility] Comment on above: Performed By: #### C VDTBH #### [facility] [address] [place] [address] Dr. David Magana Basophils/100 WBC (Bld) 0.7 % Normal 0.2-2.0 [facility] Comment on above: Performed By: #### C VDTBH #### [facility] [address] [place] [address] Dr. David Magana EO # 0.5 103/ul Normal 0.0-0.7 [facility] Comment on above: Performed By: #### C VDTBH #### [facility] [address] [place] [address] Dr. David Magana Eosinophils/100 WBC (Bld) 6.7 % Normal 0.9-7.0 [facility] Comment on above: Performed By: #### C VDTBH #### [facility] [address] [place] [address] Dr. David Magana Erythrocyte distribution width (RBC) [Ratio] 13.6 % Normal 11.0-15.0 [facility] Comment on above: Performed By: #### C VDTBH #### [facility] [address] [place] [address] Dr. David Magana Hematocrit (Bld) [Volume fraction] 45.9 % Normal 42.0-54.0 [facility] Comment on above: Performed By: #### C VDTBH #### [facility] [address] [place] [address] Dr. David Magana Hemoglobin (Bld) [Mass/Vol] 14.9 g/dL Normal 14.0-18.0 [facility] Comment on above: Performed By: #### C VDTBH #### [facility] [address] [place] [address] Dr. David Magana IG # 0.03 10e3/ul Normal 0.00-0.03 [facility] Comment on above: Performed By: #### C VDTBH #### [facility] [address] [place] [address] Dr. David Magana IG % 0.4 % Normal 0.0-0.5 [facility] Comment on above: Performed By: #### C VDTBH #### [facility] [address] [place] [address] Dr. David Magana LYMPH # 1.0 103/ul Critically low 1.2-3.8 [facility] Comment on above: Performed By: #### C VDTBH #### [facility] [address] [place] [address] Dr. David Magana Lymphocytes/100 WBC (Bld) 13.4 % Critically low 20.5-60.0 [facility] Comment on above: Performed By: #### C VDTBH #### [facility] [address] [place] [address] Dr. David Magana MANUAL DIFF REQ NO Normal [facility] Comment on above: Performed By: #### C VDTBH #### [facility] [address] [place] [address] Dr. David Magana MCH (RBC) [Entitic mass] 33.8 pg Normal 25.9-34.0 [facility] Comment on above: Performed By: #### C VDTBH #### [facility] [address] [place] [address] Dr. David Magana MCHC (RBC) [Mass/Vol] 32.5 g/dL Normal 29.9-35.2 [facility] Comment on above: Performed By: #### C VDTBH #### [facility] [address] [place] [address] Dr. David Magana MCV (RBC) [Entitic vol] 104.1 fL Critically high 80.0-94.0 [facility] Comment on above: Performed By: #### C VDTBH #### [facility] [address] [place] [address] Dr. David Magana MONO # 0.8 103/ul Normal 0.3-0.8 [facility] Comment on above: Performed By: #### C VDTBH #### [facility] [address] [place] [address] Dr. David Magana Monocytes/100 WBC (Bld) 10.2 % Normal 1.7-12.0 [facility] Comment on above: Performed By: #### C VDTBH #### [facility] [address] [place] [address] Dr. David Magana NEUT # 5.1 103/ul Normal 1.4-6.5 [facility] Comment on above: Performed By: #### C VDTBH #### [facility] [address] [place] [address] Dr. David Magana Neutrophils/100 WBC (Bld) 68.6 % Normal 43.0-75.0 [facility] Comment on above: Performed By: #### C VDTBH #### [facility] [address] [place] [address] Dr. David Magana Platelet mean volume (Bld) [Entitic vol] 11.3 fL Normal 9.5-13.5 [facility] Comment on above: Performed By: #### C VDTBH #### [facility] [address] [place] [address] Dr. David Magana PLT 185 103/ul Normal 150-450 [facility] Comment on above: Performed By: #### C VDTBH #### [facility] [address] [place] [address] Dr. David Magana RBC 4.41 106/ul Critically low 4.70-6.10 [facility] [place] Comment on above: Performed By: #### C VDTBH #### [facility] [address] [place] [address] Dr. David Magana WBC 7.5 103/ul Normal 4.0-11.0 [facility] Comment on above: Performed By: #### C VDTBH #### [facility] [address] [place] [address] Dr. David Magana FREE T3on 04-28-2022 FREE T3 2.17 pg/mlL Critically low 2.18-3.98 [facility] [place] Comment on above: Performed By: #### P OCGLUC #### [facility] [address] [place] [address] Dr. David Magana LIPID PROFILEon 04-28-2022 CHOL-HDL RATIO NORM SEE BELOW Normal [facility] Comment on above: Result Comment: 3.3 - 4.4 LOW RISK 4.4 - 7.1 AVERAGE RISK 7.1 - 11.0 MODERATE RISK >11.0 HIGH RISK Performed By: #### P OCGLUC #### [facility] [address] [address] [address] David Magana Cholesterol [Mass/Vol] 234 mg/dL Critically high <=200 [facility] Comment on above: Performed By: #### P OCGLUC #### [facility] [address] [address] [address] David Magana Cholesterol in HDL [Mass/Vol] 58 mg/dL Normal 40-60 [facility] Comment on above: Performed By: #### P OCGLUC #### [facility] [address] [address] [address] David Magana Cholesterol in LDL [Mass/Vol] 129.0 mg/dL Normal [facility] Comment on above: Performed By: #### P OCGLUC #### [facility] [address] [address] [address] David Magana Cholesterol.total/Cho lesterol in HDL [Mass ratio] 4.0 {ratio} Normal [facility] Comment on above: Performed By: #### P OCGLUC #### [facility] [address] [address] [address] David Magana HDL NORMAL > or = 60 mg/dl - LOW CARDIOVASCULAR RISK <40 mg/dl - HIGH CARDIOVASCULAR RISK Normal [facility] Comment on above: Performed By: #### P OCGLUC #### [facility] [address] [address] [address] David Magana LDL CALC NORMAL SEE BELOW Normal [facility] Comment on above: Result Comment: <100 mg/dl OPTIMAL 100 - 129 mg/dl NEAR OR ABOVE OPTIMAL 130 - 159 mg/dl BORDERLINE HIGH 160 - 189 mg/dl HIGH >190 mg/dl VERY HIGH Performed By: #### P OCGLUC #### [facility] [address] [address] [address] David Magana Triglyceride [Mass/Vol] 235 mg/dL Critically high <=150 [facility] Comment on above: Performed By: #### P OCGLUC #### [facility] [address] [place] [address] Dr. David Magana VLDL CALC 47.0 mg/dL Normal [facility] Comment on above: Performed By: #### P OCGLUC #### [facility] [address] [address] [address] David Magana PROF 14(COMP METB)on 022 Albumin [Mass/Vol] 3.2 g/dL Critically low 3.4-5.0 [facility] Comment on above: Performed By: #### P OCGLUC #### [facility] [address] [place] [address] Dr. David Magana Albumin/Globulin [Mass ratio] 0.9 {ratio} Normal [facility] Comment on above: Performed By: #### P OCGLUC #### [facility] [address] [place] [address] Dr. David Magana ALP [Catalytic activity/Vol] 77 U/L Normal 46-116 [facility] Comment on above: Performed By: #### P OCGLUC #### [facility] [address] [place] [address] Dr. David Magana ALT [Catalytic activity/Vol] 24 U/L Normal 16-63 [facility] Comment on above: Performed By: #### P OCGLUC #### [facility] [address] [place] [address] Dr. David Magana Anion gap [Moles/Vol] 13.1 mmol/L Normal [facility] Comment on above: Performed By: #### P OCGLUC #### [facility] [address] [place] [address] Dr. David Magana AST [Catalytic activity/Vol] 13 U/L Critically low 15-37 [facility] Comment on above: Performed By: #### P OCGLUC #### [facility] [address] [place] [address] Dr. David Magana Bilirubin [Mass/Vol] 0.3 mg/dL Normal 0.2-1.0 [facility] Comment on above: Performed By: #### P OCGLUC #### [facility] [address] [address] [address] David Magana Calcium [Mass/Vol] 8.8 mg/dL Normal 8.5-10.1 [facility] Comment on above: Performed By: #### P OCGLUC #### [facility] [address] [address] [address] David Magana Chloride [Moles/Vol] 106 mmol/L Normal 98-107 [facility] Comment on above: Performed By: #### P OCGLUC #### [facility] [address] [address] [address] David Magana CO2 [Moles/Vol] 27.5 mmol/L Normal 21.0-32.0 [facility] Comment on above: Performed By: #### P OCGLUC #### [facility] [address] [place] [address] Dr. David Magana Creatinine [Mass/Vol] 1.62 mg/dL Critically high 0.70-1.30 [facility] Comment on above: Performed By: #### P OCGLUC #### [facility] [address] [place] [address] Dr. David Magana EGFR-AF POLISH 50 mL/min/1.73m2 Critically low >=60 [facility] Comment on above: Performed By: #### P OCGLUC #### [facility] [address] [place] [address] Dr. David Magana EGFR-NON AF POLISH 41 mL/min/1.73m2 Critically low >=60 [facility] Comment on above: Performed By: #### P OCGLUC #### [facility] [address] [address] [address] David Magana Globulin (S) [Mass/Vol] 3.4 g/dL Normal [facility] Comment on above: Performed By: #### P OCGLUC #### [facility] [address] [address] [address] David Magana Glucose [Mass/Vol] 206 mg/dL Critically high 74-106 [facility] Comment on above: Performed By: #### P OCGLUC #### [facility] [address] [address] [address] David Magana Potassium [Moles/Vol] 4.6 mmol/L Normal 3.5-5.1 [facility] Comment on above: Performed By: #### P OCGLUC #### [facility] [address] [address] [address] David Magana Protein [Mass/Vol] 6.6 g/dL Normal 6.4-8.2 [facility] Comment on above: Performed By: #### P OCGLUC #### [facility] [address] [place] [address] Dr. David Magana Sodium [Moles/Vol] 142 mmol/L Normal 136-145 [facility] Comment on above: Performed By: #### P OCGLUC #### [facility] [address] [place] [address] Dr. David Magana Urea nitrogen [Mass/Vol] 26.0 mg/dL Critically high 7.0-18.0 [facility] Comment on above: Performed By: #### P OCGLUC #### [facility] [address] [place] [address] Dr. David Magana Urea nitrogen/Creatinine [Mass ratio] 16.0 mg/mg Normal [facility] Comment on above: Performed By: #### P OCGLUC #### [facility] [address] [place] [address] Dr. David Magana T4on 04-28-2022 T4 [Mass/Vol] 7.70 ug/dL Normal 4.50-12.10 [facility] Comment on above: Performed By: #### P OCGLUC #### [facility] [address] [place] [address] Dr. David Magana TSHon 04-28-2022 TSH 2.187 uIU/mL Normal 0.358-3.740 [facility] Comment on above: Performed By: #### P OCGLUC #### [facility] [address] [place] [address] Dr. David Magana TSH RANGE SEE BELOW Normal [facility] Comment on above: Result Comment: <0.3 4 UIU/ml HYPERTHYROID 0.34-5.60 UIU/ml EUTHYROID >5.60 UIU/ml HYPOTHYROID Performed By: #### P OCGLUC #### [facility] [address] [address] [address] David Magana Vital Signs Date Time Vital Sign Value Performing Clinician Facility 10-14-2023 14:33-0500 Diastolic blood pressure 70 mm[Hg] Nereyda Patricia [facility] 10-14-2023 14:33-0500 Mean blood pressure 93 mm[Hg] Nereyda Patricia [facility] 10-14-2023 14:33-0500 Systolic blood pressure 138 mm[Hg] Nereyda Patricia [facility] 10-14-2023 14:18-0500 Blood Pressure Location Nereyda Patricia [facility] 10-14-2023 14:18-0500 Body temperature 97.88 [degF] Nereyda Patricia [facility] 10-14-2023 14:18-0500 Diastolic blood pressure 73 mm[Hg] Nereyda Patricia [facility] 10-14-2023 14:18-0500 Heart rate 91 /min Nereyda Patricia [facility] 10-14-2023 14:18-0500 Systolic blood pressure 143 mm[Hg] Nereyda Patricia [facility] 10-01-2023 12:13-0500 Diastolic blood pressure 66 mm[Hg] Nereyda Patricia [facility] 10-01-2023 12:13-0500 Mean blood pressure 104 mm[Hg] Nereyda Patricia [facility] 10-01-2023 12:13-0500 Systolic blood pressure 179 mm[Hg] Nereyda Patricia [facility] 10-01-2023 12:10-0500 Blood Pressure Location Nereyda Patricia [facility] 10-01-2023 12:10-0500 Body temperature 98.42 [degF] Nereyda Patricia [facility] 10-01-2023 12:10-0500 Diastolic blood pressure 77 mm[Hg] Nereyda Patricia [facility] 10-01-2023 12:10-0500 Heart rate 81 /min Nereyda Patricia [facility] 10-01-2023 12:10-0500 Respiratory rate 14 /min Nereyda Patricia [facility] 10-01-2023 12:10-0500 Systolic blood pressure 168 mm[Hg] Nereyda Patricia [facility] 06-10-2023 10:43-0400 Diastolic blood pressure 64 mm[Hg] Nereyda Patricia [facility] 06-10-2023 10:43-0400 Heart rate 76 /min Nereyda Patricia [facility] 06-10-2023 10:43-0400 Respiratory rate 16 /min Nereyda Patricia [facility] 06-10-2023 10:43-0400 SaO2% (BldA) [Mass fraction] 95 % Nereyda Patricia [facility] 06-10-2023 10:43-0400 Systolic blood pressure 121 mm[Hg] Nereyda Patricia [facility] 04-13-2023 14:19-0400 Diastolic blood pressure 70 mm[Hg] Nereyda Patricia [facility] 04-13-2023 14:19-0400 Mean blood pressure 95 mm[Hg] Nereyda Patricia [facility] 04-13-2023 14:19-0400 Systolic blood pressure 146 mm[Hg] Nereyda Patricia [facility] 04-13-2023 14:15-0400 Blood Pressure Location Nereyda Patricia [facility] 04-13-2023 14:15-0400 Body temperature 97.7 [degF] Nereyda Patricia [facility] 04-13-2023 14:15-0400 Diastolic blood pressure 87 mm[Hg] Nereyda Patricia [facility] 04-13-2023 14:15-0400 Heart rate 70 /min Nereyda Patricia [facility] 04-13-2023 14:15-0400 Systolic blood pressure 150 mm[Hg] Nereyda Patricia [facility] 06-09-2022 10:02-0400 Body temperature 96.98 [degF] Nereyda Patricia [facility] 06-09-2022 10:02-0400 Diastolic blood pressure 75 mm[Hg] Nereyda Patricia [facility] 06-09-2022 10:02-0400 Heart rate 72 /min Nereydabruce Donatoz [facility] 06-09-2022 10:02-0400 SaO2% (BldA) [Mass fraction] 97 % Nereydabruce JoyaPatricia [facility] 06-09-2022 10:02-0400 Systolic blood pressure 139 mm[Hg] Nereyda Donatoz [facility] 05-11-2022 11:30-0400 Diastolic blood pressure 102 mm[Hg] Bender SALAM [facility] 05-11-2022 11:30-0400 Heart rate 86 /min Bender SALAM [facility] 05-11-2022 11:30-0400 Respiratory rate 15 /min Bender SALAM [facility] 05-11-2022 11:30-0400 SaO2% (BldA) [Mass fraction] 95 % Bender SALAM [facility] 05-11-2022 11:30-0400 Systolic blood pressure 172 mm[Hg] Bender SALAM [facility] 05-11-2022 11:15-0400 Diastolic blood pressure 88 mm[Hg] Bender SALAM [facility] 05-11-2022 11:15-0400 Heart rate 86 /min Bender SALAM [facility] 05-11-2022 11:15-0400 Respiratory rate 18 /min Bender SALAM [facility] 05-11-2022 11:15-0400 SaO2% (BldA) [Mass fraction] 97 % Bneder SALAM [facility] 05-11-2022 11:15-0400 Systolic blood pressure 170 mm[Hg] Bender SALAM [facility] 05-11-2022 11:10-0400 Diastolic blood pressure 108 mm[Hg] Bender SALAM [facility] 05-11-2022 11:10-0400 Heart rate 85 /min Bender SALAM [facility] 05-11-2022 11:10-0400 Respiratory rate 14 /min Bender SALAM [facility] 05-11-2022 11:10-0400 SaO2% (BldA) [Mass fraction] 97 % Bender SALAM [facility] 05-11-2022 11:10-0400 Systolic blood pressure 157 mm[Hg] Bender SALAM [facility] 05-11-2022 11:02-0400 Body temperature 97.34 [degF] Bender SALAM [facility] 05-11-2022 10:27-0400 Blood Pressure Location Bender SALAM [facility] 05-11-2022 10:23-0400 Blood Pressure Location Bender SALAM [facility] 05-11-2022 10:23-0400 Body temperature 98.24 [degF] Bender SALAM [facility] 03-31-2022 09:53-0400 Blood Pressure Location Nereyda Gomez [facility] 03-31-2022 09:53-0400 Body temperature 97.7 [degF] Nereyda Gomez [facility] 03-31-2022 09:53-0400 Diastolic blood pressure 72 mm[Hg] Nereyda Gomez [facility] 03-31-2022 09:53-0400 Heart rate 73 /min Nereyda Gomez [facility] 03-31-2022 09:53-0400 SaO2% (BldA) [Mass fraction] 96 % Nereyda Gomez [facility] 03-31-2022 09:53-0400 Systolic blood pressure 129 mm[Hg] Nereyda Gomez [facility] Encounters Encounter Date Encounter Type Care Provider Facility Start: 03-03-2024 End: 03-03-2024 ambulatory [facility] Start: 02-10-2024 End: 02-10-2024 ambulatory ROBINSON CHICAS Not Available Start: 02-02-2024 ambulatory Nereyda Cabrera ty:Uri Start: 01-11-2024 End: 01-11-2024 ambulatory BARRIE BRASWELL Not Available Start: 12-09-2023 ambulatory Nereyda Cabrera ty:Uri Start: 12-02-2023 End: 12-02-2023 ambulatory ROBINSON CHICAS Not Available Start: 11-17-2023 End: 11-17-2023 ambulatory [facility] Start: 10-14-2023 End: 10-15-2023 ambulatory Nereyda Gomez Facility:[facility] Start: 10-14-2023 End: 10-14-2023 Patient encounter procedure Nereyda Gomez [facility] Start: 10-01-2023 End: 10-02-2023 ambulatory Nereyda Joyametz Facility:[facility] [place] Start: 10-01-2023 End: 10-02-2023 ambulatory Nereyda A Patricia Facility:[facility] Start: 10-01-2023 End: 10-01-2023 Patient encounter procedure Nereyda Gomez [facility] Start: 10-01-2023 End: 10-01-2023 Patient encounter procedure Nereyda Joyametz [facility] Start: 09-17-2023 End: 09-17-2023 ambulatory [facility] Start: 09-13-2023 End: 09-14-2023 ambulatory Nereyda Joyametz Facility[facility] Start: 09-13-2023 End: 09-13-2023 Patient encounter procedure Nereyda Gomez [facility] Start: 08-31-2023 End: 09-01-2023 ambulatory [facility] Start: 07-21-2023 End: 07-21-2023 ambulatory [facility] Start: 06-14-2023 End: 06-14-2023 ambulatory [facility] Start: 06-10-2023 End: 06-11-2023 ambulatory Nereyda A Patricia Facility:[facility] Start: 06-10-2023 End: 06-10-2023 Patient encounter procedure Nereydabruce Joyametz [facility] Start: 05-24-2023 End: 05-24-2023 ambulatory CLARIBEL PUGA [place] Start: 04-15-2023 End: 04-16-2023 ambulatory Nereyda Gomez Facility:[facility] [place] Start: 04-15-2023 End: 04-15-2023 Lab Drop off Nereyda Gomez [facility] Start: 04-13-2023 End: 04-14-2023 ambulatory Nereyda Gomez Facility:[facility] [place] Start: 04-13-2023 End: 04-13-2023 Patient encounter procedure Nereyda Gomez [facility] Start: 04-07-2023 End: 04-07-2023 ambulatory RUTHIE LINDA [place] Start: 03-24-2023 End: 03-25-[address] RUTHIE [...] 06-09-2022 Patient encounter procedure Nereyda Gomez [facility] Start: 06-08-2022 End: 06-09-2022 ambulatory ALSTON THUY Facility:[facility] Start: 05-11-2022 End: 05-11-2022 Patient encounter procedure Napoleon MENDEZ [facility] Start: 04-28-2022 End: 04-29-[address] VAN SUNG . Facility:[facility] Start: 03-31-2022 End: 03-31-2022 Patient encounter procedure Nereyda Joyametz [facility] Start: 2019 End: 02-07-2019 Patient encounter procedure DEFAULT PHYSICIAN Facility:[facility] Procedures Date Procedure Procedure Detail Performing Clinician Start: 05-11-2022 Colonoscopy Napoleon Fernandez Comment on above: 2 polyps, diveticulo sis, IH Start: 01-11-2017 Cardioversion Nereyda Rian nmetz Back structure, excl uding neck (body structure) Nereyda Donatoz Cholecystectomy Nereyda Joyame mcdonough Colonoscopy Nereyda Donatoz History of hernia repair Ave barrera Patricia Tonsillectomy Nereyda Joyametz Immunizations Immunization Date Immunization Notes Care Provider Fa cili 10-21-2022 SARS-CoV-2 (COVID-19 ) [id number] Nereyda Joyametz [facility] Comment on above: Result Comment: 2022: [id number] 08-26-2021 SARS-CoV-2 (COVID-19 ) mRNA BNT-162b2 vax Nereyda Joyametz [facility] 01-01-2021 SARS-CoV-2 (COVID-19 ) mRNA BNT-162b2 vax Nereyda Gomez [facility] 12-09-2020 SARS-CoV-2 (COVID-19 ) mRNA BNT-162b2 vax Nereyda Gomez [facility] 08-27-2020 influenza virus vaccine, unspecified formulation Nereyda Gomez [facility] 08-16-2017 pneumococcal conjugate vaccine, 13 valent Nereyda Gomez [facility] 08-05-2017 influenza, unspecified formulation Nereyda Gomez [facility] 09-20-2015 zoster vaccine, live [facility] NEGATED: Highlighted row has not occurred!10-13-2023 influenza virus vaccine, unspecified formulation Nereyda Gomez [facility] NEGATED: Highlighted row has not occurred!09-29-2023 influenza virus vaccine, unspecified formulation Nereyda Gomez [facility] Payers Date Payer Category Payer Unknown [id number] 1960 Medicare [id number] 1940 Unknown [id number] 2.16.8 40.1.707981.3.579.2.647 1940 Unknown [id number] 2.16.84 0.1.012525.3.579.2.593 1939 Unknown [id number] 2.16.84 0.1.856310.3.579.2.593 1939 Unknown [id number] 2.16.84 0.1.459553.3.579.2.593 1939 Unknown [id number] 2.16.84 0.1.618240.3.579.2.593 1939 Unknown [id number] 2.16.84 0.1.638963.3.579.2.593 1939 Unknown [id number] 2.16.84 0.1.234097.3.579.2.593 1939 Unknown [id number] 2.16.84 0.1.230801.3.579.2.593 1939 Unknown [id number] 2.16.84 0.1.140259.3.579.2.593 1939 Unknown [id number] 2.16.84 0.1.279917.3.579.2.593 1939 Unknown [id number] 2.16.84 0.1.323537.3.579.2.593 1939 Unknown [id number] 2.16.84 0.1.109693.3.579.2.593 1939 Unknown [id number] 2.16.8 40.1.394492.3.579.2.727 1939 Unknown [id number] 2.16.8 40.1.408380.3.579.2.727 1939 Unknown [id number] 2.16.8 40.1.331348.3.579.2.727 1939 Unknown [id number] 2.16.8 40.1.988938.3.579.2.727 1939 Unknown [id number] 2.16.8 40.1.490970.3.579.2.727 1939 Unknown [id number] 2.16.8 40.1.687489.3.579.2.727 1939 Unknown [id number] 2.16.8 40.1.646057.3.579.2.727 1939 Unknown [id number] 2.16.8 40.1.174058.3.579.2.727 1939 Unknown [id number] 2.16.8 40.1.376785.3.579.2.727 1939 Unknown [id number] 2.16.8 40.1.424310.3.579.2.727 1939 Unknown [id number] 2.16.8 40.1.396409.3.579.2.727 1939 Unknown [id number] 2.16.84 0.1.213773.3.579.2.1259 1939 Unknown [id number] 2.16.84 0.1.747871.3.579.2.1259 1939 Unknown [id number] 2.16.84 0.1.103588.3.579.2.1259 Unknown Social History Date Type Detail Facility Start: 03-31-2022 End: 10-14-2023 Tobacco smoking status Ex-smoker (finding) [facility] Sex Assigned At Male [facility] Functional Status Date Assessment Result Facility 10-14-2023 Functional Status N/A [facility] 10-01-2023 Functional Status No [facility] 04-13-2023 Functional Status N/A [facility] 06-09-2022 Functional Status N/A [facility] 05-11-2022 Functional Status N/A [facility] Clinical Notes 03-31-2022 to 03-03-2024 Note Date & Type Note Facility 03-03-2024 Note [facility] Subjective Nadir Heredia is a 84 y.o. [...] extremity edema. He was admitted to the [facility] in August 2022 due to hyponatremia, hyperkalemia and acute kidney injury, leukocytosis secondary to COVID-19 causing dehydration. I saw him on 05/24/2023 and the office and he had significant evidence of volume overload by exam and echocardiogram. I intensified his diuretic regimen. He ended up getting admitted to the [facility] with acute heart failure exacerbation and underwent [...] Musculoskeletal: General: N (more content not included)... [place] 11-17-2023 Note Attestation signed by Ruthie Linda MD at 11/21/2023 6:55 PM I saw, interviewed, examined and evaluated the patient with Nephrology fellow, Dr. Dana Aparicio. I participated in the medical management of the patient. I reviewed the fellow's note and agree with the fellow's documentation in the note. Ruthie Linda MD Faculty, Division of Nephrology, Department of Medicine, [facility]. [facility] Patient: Nadir Heredia; 83 y.o. Visit date: 11/17/23 Reason for today's visit: Follow up for CKD stage 3, Hypertension, Edema/ Fluid overload, and Electrolytes disturbances SUBJECTIVE: BACKGROUND: Nadir Heredia is a 83 y.o. male has a past medical history of Atrial fibrillation ([facility]), CHF (congestive heart failure) ([facility]), Chronic kidney disease, COPD (chronic obstructive pulmonary disease) ([facility]), Coronary artery disease, Diabetes mellitus ([facility]), Heart valve disease, Hypertension, Pericardial effusion, and Sleep apnea. History of paroxysmal atrial fibrillation maintained on anticoagulation with Eliquis, aortic stenosis, renal artery stenosis, and hypertension. He had stenting of the left renal artery from the left radial approach on 05/01/2015 (Express SD 6 mm x 18 mm stent). He was admitted to the [facility] in August 2022 due to hyponatremia, hyperkalemia [...] place, and time (more content not included)... [place] 10-14-2023 Hospital Discharge instructions Patient Education 10/14/2023 [...] as fried or sweet foods. These include bolivian fries, hamburgers, cookies, candies, and soda. Drink enough fluid to keep your urine pale yellow. General instructions Exercise regularly or as told by your health care provider. Try to do 150 minutes of moderate exercise each week. Use the bathroom when you have the urge to go. Do not hold it in. Take [id number] and prescription medicines only as told by [...] to keep your urine pale yellow. Take [id number] and prescription medicines only as told by your health care provider. This includes any fiber supplements. This information is not intended to replace advice given to you by your health care provider. Make sure you discuss any questions you have with your health care provider. Document Revised: 09/18/2020 Document Reviewed: 09/18/2020 [employer] Patient Education 2022 [employer]. Follow Up Care 10/01/2023 12:57:46 With:Nereyda Gomez CNP Address: When:1 month [facility] 10-01-2023 Hospital Discharge instructions [...] Bulgur wheat. Millet. Quinoa. Bran muffins. Popcorn. [place] wafer crackers. Meats and other proteins Deming beans, kidney beans, and mendez beans. Soybeans. [...] Cream cheese. Sour cream. Fats and oils [place]. Beverages Soft drinks. Other foods Cakes and [...] provider. Document Revised: 03/06/2021 Document Reviewed: 03/06/2021 [employer] Patient Education 2022 [employer] Meister. Follow Up Care 09/20/2023 08:43:45 With:Nereyda Gomez CNP Address:Unknown When: Unknown [facility] 09-17-2023 Note [place] [facility] Subjective Nadir Heredia is a [...] extremity edema. He was admitted to the [facility] in August 2022 due to hyponatremia, hyperkalemia and acute kidney injury, leukocytosis secondary to COVID-19 causing dehydration. I saw him on 05/24/2023 and the office and he had significant evidence of volume overload by exam and echocardiogram. I intensified his diuretic regimen. He ended up getting admitted to the [facility] with acute heart failure exacerbation and underwent [...] Allergies Allergen Reactions Iodinated Contrast Media Nitroglycerin Ydlbews-Bht-Axo Reductase Inhibitors Medications Current Outpatient Medications: (more content not included)... [place] 08-31-2023 Note Patient: Nadir lin Procedure Information Date/Time: 08/31/23 1300 Procedure: TRANSESOPHAGEAL ECHO (MARK) Location: [facility] Vascular Lab Clinical information reviewed: Allergies Meds Physical Exam Airway Mallampati: III TM distance: >3 FB Cardiovascular Rhythm: regular Rate: normal (+) murmur Dental Pulmonary Breath sounds clear to auscultation Abdominal Abdomen: soft Anesthesia Plan ASA 4 (Conscious sedation) Anesthetic plan and risks discussed with patient. Use of blood products discussed with patient who. Additional Equipment Requests [place] 07-21-2023 Note [place] [facility] Subjective Nadir Heredia is a 83 y.o. year old male patient being seen for Follow-up Patient Active Problem List Diagnosis Aortic valve disorder Atherosclerosis of renal artery (CMS/HCC) Chronic atrial fibrillation ([facility]/HCC) Coronary arteriosclerosis Bradycardia Aortic valve stenosis Type [...] use: Not Currently Drug use: Never HPI Ndair is seen in follow up. He is [...] extremity edema. He was admitted to the [facility] in August 2022 due to hyponatremia, hyperkalemia and acute kidney injury, leukocytosis secondary to COVID-19 causing dehydration. I saw him on 05/24/2023 and the office and he had significant evidence of volume overload by exam and echocardiogram. I intensified his diuretic regimen. He ended up getting admitted to the [facility] with acute heart failure exacerbation and underwent [...] Allergies Allergen Reactions Iodinated Contrast Media Nitroglycerin Asaqzlu-Dlp-Ljt Reductase Inhibitors Medications Current Outpatient Medications: acyclovir [...] every day by (more content not included)... [place] 06-14-2023 Note BMP script sent [facility] 06-14-2023 Note Coronary artery dise ase is stable Continue GDMT- ASA, labetalol, zetia continue risk factor modifications- heart healthy diet, regular exercise as tolerated and continue all medications. [place] 06-14-2023 Note stable [facility] 06-14-2023 Note Recent echo 05/2023 w ith noted mod AO stenosis [place] 06-14-2023 Note [facility] CARDIOLOGY PROGR ESS NOTE HPI: Nadir Heredia is a 83 y.o. male here for hospital f/U after admit to [facility] for resp failure, and acute heart failure exacerbation. Recent admit to [facility] for shortness of breath, acute HFpEF [...] Allergies Allergen Reactions Iodinated Contrast Media Nitroglycerin Piwqxeq-Zju-Tjb Reductase Inhibitors Medications: Current Outpatient Medications on [...] diastolic heart failure (CMS/HCC) Recent admit to [facility] for shortness of breath, acute HFpEF with ARTUR. BNP 3311, BUN 26, CR 1.5-1.9, LFT normal, K+ normal. Troponin level negative. CXR showed vascular congestion Pt was admitted and diuresed as inpt. [facility] III Continue GDMT- remains on jardiance and lasix 60 mg daily for diuresis Monitor daily weights, I&O, fluid restriction 1.5 (more content not included)... [place] 06-14-2023 Note Patient here for fol low up [facility] for CHF. Dr. Sung gave him a few days of spironolactone to help with SOB. This did not help so he went to [facility] ED. He was diuresed with IV lasix. Says his breathing and LE edema are much better. Denies chest pain, lightheadedness, palpitations, and bleeding on Eliquis. Review of Systems Cardiovascular: Positive for dyspnea on exertion (improving) and leg swelling (improving). Hematologic/Lymphatic: Bruises/bleeds easily. Neurological: Positive for loss of balance. All other systems reviewed and are negative. [place] 06-14-2023 Note Recent admit to [facility] for shortness of breath, acute HFpEF with ARTUR. BNP 3311, BUN 26, CR 1.5-1.9, LFT normal, K+ normal. Troponin level negative. CXR showed vascular congestion Pt was admitted and diuresed as inpt. [facility] III Continue GDMT- remains on jardiance and lasix 60 mg daily for diuresis Monitor daily weights, I&O, fluid restriction 1.5-2L/day, renal function and electrolytes- Script for BMP and CBC provided pt is also seeing PCP today [place] 06-10-2023 Hospital Discharge instructions Patient Education 06/10/2023 [...] hard liquor (44 mL). General instructions Take eicy-ksc-yefeseo and prescription medicines only as told by [...] provider. Document Revised: 02/19/2021 Document Reviewed: 02/19/2021 [employer] Patient Education 2022 [employer] Meister. Follow Up Care 04/13/2023 14:39:27 With:Neryeda Gomez CNP Address: When:3 months [facility] 05-24-2023 Note [place] [facility] Subjective Nadir Heredia is a 83 y.o. [...] extremity edema. He was admitted to the [facility] in August 2022 due to hyponatremia, hyperkalemia [...] Allergies Allergen Reactions Iodinated Contrast Media Nitroglycerin Mosjjxi-Mep-Non Reductase Inhibitors Medications Current Outpatient Medications: acyclovir [...] , Rfl: ergocalciferol (Vitamin D-2) 1.25 MG (35638 Units) capsule, Take 1 capsule (50,000 Units) by mouth 1 (one) time per week., Disp: 8 capsule, Rfl: 0 ezetimibe (Zetia) 10 (more content not included)... [place] 04-13-2023 Hospital Discharge instructions Patient Education 04/13/2023 [...] including vitamins, herbs, eye drops, creams, and pdhz-uil-qyezmhp medicines. Any problems you or family members [...] provider tells you to take them. Taking dndj-gcb-pemnrjv medicines, vitamins, herbs, and supplements. General instructions [...] provider. Document Revised: 10/26/2022 Document Reviewed: 06/24/2022 [employer] Patient Education 2022 [employer] Meister. Follow Up Care 04/09/2023 11:27:16 With:Nereyda Gomez CNP Address: When:1 month [facility] 04-13-2023 Note Radiology Colonoscopy, [...] including vitamins, herbs, eye drops, creams, and zfji-cce-djbhpxu medicines. ? Any problems you or family [...] tells you to take them. ? Taking yxqt-jle-huuigdd medicines, vitamins, herbs, and supplements. General instructions [...] for cancer cells. (more content not included)... [facility] 04-07-2023 Note Nephrology Clinic Patient: Nadir Hamilton Raifsnider; 83 y.o. Visit date: 04/07/23 Reason for today's visit: Follow up for CKD stage 3, Hypertension, and Edema/ Fluid overload SUBJECTIVE: History Of Present Illness: HISTORICAL: 10/23/2015: Here for FU from the hospital. He was first admitted to [facility] with weight gain and so he was [...] back & is being treated by a wax pumper. He reports feeling short of breath on [...] is 83 year (more content not included)... [place] 07-18-2022 Note EXAM: US CHANI DOP LEG [...] authenticated by: LI ROBERTS Date: 2022-07-18 09:05 [facility] 06-09-2022 Hospital Discharge instructions Patient Education 06/09/2022 [...] per serving. Talk with a diet and nuclear medicine specialist (dietitian) if you have questions about [...] Bulgur wheat. Millet. Quinoa. Bran muffins. Popcorn. [place] wafer crackers. Meats and other proteins [place], kidney, and mendez beans. Soybeans. Split peas. [...] Cream cheese. Sour cream. Fats and oils [place]. Beverages Soft drinks. Other foods Cakes and [...] 11/01/2006 Document Revised: 09/05/2018 Document Reviewed: 09/05/2018 [employer] Patient Education 2020 [employer] Meister. 06/09/2022 10:13:34 Hemorrhoids Hemorrhoids Hemorrhoids are swollen [...] 3 times a day. General instructions Take hfmm-njw-gizbtlb and prescription medicines only as told by [...] 10/29/2001 Document Revised: 03/29/2020 Document Reviewed: 03/23/2019 [employer] Patient Education 2020 [employer] Meister. 06/09/2022 10:13:31 Diverticulosis Diverticulosis Diverticulosis is a [...] overweight. Not getting enough exercise. Smoking. Taking avqw-gsr-lmozman pain medicines, like aspirin and ibuprofen. Having [...] health care provider or your diet and nuclear medicine specialist (dietitian). ?Take a fiber supplement or probiotic, if your health care provider approves. Take axnr-imk-mrkwgny and prescription medicines only as told by [...] 07/29/2005 Document Revised: 10/14/2018 Document Reviewed: 09/20/2017 [employer] Patient Education 2020 [employer] Meister. 06/09/2022 10:13:30 Colon Polyps Colon Polyps Polyps [...] 07/28/2005 Document Revised: 02/16/2019 Document Reviewed: 02/16/2019 [employer] Patient Education 2019 [employer] Meister. Follow Up Care 05/13/2022 14:18:17 With:Nereyda Gomez CNP Address: When:1 year only if needed [facility] 05-11-2022 Evaluation + Plan note Extrac fernando from: Title:Anesthesia post op endo Author:Jeffrey Gr MD Date:05/11/22 Plan Transfer/ Discharge: Patient can be discharged from PACU when criteria met. Condition good. Extracted from: Title:Anesthesia Pre-Op endo 2 Author:Jeffrey Gr MD Date:05/11/22 Plan [place] Society of Anesthesiologists (ASA) physical status classification: [...] lungs, allergic reactions, and .. [facility]06-27-2022 Hospital Discharge instructions Patient Education 05/11/2022 11:13:39 Colonoscopy, Care After Surgery [facility] (CUSTOM) Colonoscopy Care After Surgery Please read the instructions outlined below and refer to this sheet in the next few weeks. These discharge instructions provide you with general information on caring for [facility] Your doctor may also give you specific [...] 07/28/2005 Document Revised: 02/16/2019 Document Reviewed: 02/16/2019 [employer] Patient Education 2020 [employer] Meister. 05/11/2022 11:13:39 Diverticulosis MAGR (CUSTOM) Diverticulosis Many [...] unsweetened, w/added ascorbic acid 1 cup 0.5 [place] 1 cup 0.7 Vegetables Cooked Green beans 1 cup 4.0 Carrots 1/2 cup sliced 2.3 Peas 1 cup 8.8 Potato (baked, with skin) 1 medium potato 3.8 Raw [place] (with peel) 1 cucumber 1.5 Lettuce 1 [...] 8.7 Peanuts 1/2 cup 7.9 Chart from [facility] 2013. SEEK IMMEDIATE MEDICAL CARE IF: You [...] Information adapted from: ExitCare Patient Information 2009 [employer]. [facility]Da[facility] [employer] 2012 [email or web address] Follow Up Care 03/31/2022 10:27:32 With:Napoleon MENDEZ Address: [facility] [address] [place] [address] Business (1) When: Unknown Comments:office will call for follow up [facility]05-17-2022 Hospital Discharge instructions Patient Education 03/31/2022 09:58:01 [...] including vitamins, herbs, eye drops, creams, and tbex-otc-hnwbkel medicines. Any problems you or family members [...] 10/29/2001 Document Revised: 08/24/2018 Document Reviewed: 01/12/2017 [employer] Patient Education [employer]. Follow Up Care 03/23/2022 12:11:50 With:Nereyda Gomez CNP Address: When:1 month [facility] Adaptive Computingaluation + Plan note Future Appointments Appointment Date:05/25/2022 08:45:00 AM Scheduled Provider: Location:[facility] Appointment Type:Surgery FT [facility] evaluation + Plan note Future Appointments Appointment Date:06/10/2023 10:40:00 AM Scheduled Provider:Nereyda Gomez CNP Location:[facility] [facility] Appointment Type:[facility] Follow Up Future Scheduled Tests Laboratory* Fecal WBC Lactoferrin 04/13/23 * Giardia lamblia, Direct Detection EIA 04/13/23 * O & P Exam, Routine 04/13/23 * Clostridium Difficile PCR 04/13/23 * Enteric Panel by PCR 04/13/23 [facility] evaluation + Plan note Future Appointments Appointment Date:06/10/2023 10:40:00 AM Scheduled Provider:Nereyda Gomez CNP Location:[facility] [place] [facility] Appointment Type:[facility] Follow Up Diagnostic Tests Pending * O & P Exam, Routine 04/15/23 * Giardia lamblia, Direct Detection EIA 04/15/[address] [facility] Future Appointments Appointment Date:09/13/2023 10:40:00 AM Scheduled Provider:Nereyda Gomez CNP Location:[facility] [place] [facility] Appointment Type:BADH Follow Up [facility] Evaluation + Plan note Future Appointments Appointment Date:10/14/2023 02:20:00 PM Scheduled Provider:Nereyda Gomez CNP Location:[facility] [place] [facility] Appointment Type:BAD Follow Up Future Scheduled Tests Laboratory* CBC w/ Auto Diff 10/01/23 * Comprehensive Metabolic Panel 10/01/23 * Thyroid Stimulating Hormone 10/01/23 [facility] Evaluation + Plan note Future Appointments Appointment Date:12/09/2023 02:00:00 PM Scheduled Provider:Nereyda Gomez CNP Location:[facility] Appointment Type:BAD Follow Up Future Scheduled Tests Laboratory* CBC w/ Auto Diff 10/01/23 * Comprehensive Metabolic Panel 10/01/23 * Thyroid Stimulating Hormone 10/01/23 [facility] Hospital course Narrative No data available for this section [facility] Hospital Discharge instructions No data available for this section [facility] No data available for this section [facility] Summary Purpose Family History No Family History [...] and content) DATE CREATED AUTHOR 02/09/2019 [facility] DATE CREATED AUTHOR AUTHOR'S ORGANIZ ATION 03/28/2023 [facility] DATE CREATED AUTHOR AUTHOR'S ORGANIZ ATION 01/24/2024 [place] [facility] DATE CREATED AUTHOR AUTHOR'S ORGANIZ ATION 02/11/2024 [facility] DATE CREATED AUTHOR AUTHOR'S ORGANIZ ATION 03/26/2024 [facility] Care Team (unrecognized sect ion and content) Personnel Name: Van Sung MD Address: [address] [place] [address] Personnel Name: Van Sung MD Address: [address] [place], [place] [address] [address] Personnel Name: Van Sung MD Address: Address: [address] [place] [id number] Personnel Name: Van Sung MD Address: Address: [address] [place] [id number] Personnel Name: Van Sung MD Address: Address: [address] [place] [id number] Personnel Name: Van Sung MD Address: Address: [address] [place] [id number] Personnel Name: Van Sung MD Address: Address: [address] [place] [id number] Personnel Name: Van Sung MD Address: Address: [address] [place] [id number] Personnel Name: Van Sung MD Address: Address: [address] [place] [address], [facility] Personnel Name: Van Sung MD Address: Address: [address] [place], [place] [address] FOR RECORDS PERTAINING TO PATIENTS WHO ARE [...] BE BASED ON THE PRIMARY CLINICAL RECORDS. [employer] [facility]. provides no warranty or guarantee of the accuracy or completeness of information in this document.
[2024-04-03 11:29] LABS: Anion Gap 11.1; Calcium 9.1 mg/dL (8.5-10.1); Carbon Dioxide 29.2 mmol/L (21.0-32.0); Chloride 101 mmol/L (98-107); Estimated GFR (African America 47 (>=60); Estimated GFR (Non-African Ame 39 (>=60); Glucose 205 mg/dL (74-106); Potassium 4.3 mmol/L (3.5-5.1); Sodium 137 mmol/L (136-145)
== END 2024-04-03 10:08 | disposition home or self-care (01) ==
LOC: LAB 10:08
PROVIDERS: PCP Family Medicine; Visit Provider Internal Medicine Interventional Cardiology
DX: I50.32 Chronic diastolic (congestive) heart failure (principal)
CPT/HCPCS: 36415; 80048

== ENCOUNTER 2024-04-04 09:06 | Outpatient (REF) | payer MEDICARE, SELFPAY ==
--- OUTSIDE RECORDS SUMMARY | 2024-04-04 09:29 | XMS_ITS | CCD ---
Author Organization [facility] CliniSymn Care Team Providers Care Line Cleaner Name Role Phone PHYSICIAN, DEFAULT Admitting Unavailable PHYSICIAN, DEFAULT Attending Unavailable VNA SUNG Primary Care Unavailable Van Sung Primary Care Physician MIKAEL ., DR ARAUJO Primary Care Unavailable HOY ., DR ARAUJO Consulting Unavailable HOY ., DR ARAUJO Attending Unavailable HOY ., DR ARAUJO Admitting Unavailable ZIEBER, DR CLOVER Zimmer Consulting Unavailable LAC DU FLAMBEAU, DR CRAMER Consulting Unavailable HOY ., DR ARAUJO Primary Care Unavailable LAC DU FLAMBEAU, DR CRAMER Attending Unavailable LAC DU FLAMBEAU, DR CRAMER Admitting Unavailable LAC DU FLAMBEAU, DR CRAMER Consulting Unavailable HOY ., DR ARAUJO Primary Care Unavailable LAC DU FLAMBEAU, DR CRAMER Attending Unavailable LAC DU FLAMBEAU, DR CRAMER Admitting Unavailable HOY ., DR ARAUJO Consulting Unavailable HOY ., DR ARAUJO Primary Care Unavailable HOY ., DR ARAUJO Attending Unavailable HOY ., DR ARAUJO Admitting Unavailable LAC DU FLAMBEAU, DR CRAMER Consulting Unavailable HOY ., DR ARAUJO Primary Care Unavailable LAC DU FLAMBEAU, DR CRAMER Attending Unavailable LAC DU FLAMBEAU, DR CRAMER Admitting Unavailable HOY ., DR ARAUJO Consulting Unavailable HOY ., DR ARAUJO Primary Care Unavailable HOY ., DR ARAUJO Attending Unavailable HOY ., DR ARAUJO Admsegun Unavailable THUY, ALSTON Consulting Unavailable HOY ., DR ARAUJO Primary Care Unavailable ALI ALSTON Attending Unavailable ALI, ALSTON Admitting Unavailable [...] HOY ., DR ARAUJO Primary Care Unavailable SHERICE FONSECA Consulting Unavailable HARLEY, MYNOR Consulting Unavailable Yefri Dwyer Consulting Unavailable FRANCISCO ZELAYA Unavailable LI ROBERTS Consulting Unavailable Patricia, Nereyda A Admitting Unavailable Patricia, Nereyda A Attending Unavailable Patricia, Nereyda A Attending Unavailable Patricia, Nereyda A Attending Unavailable Patricia, Nereyda A Attending Unavailable Patricia, Nereyda A Attending Unavailable Patricia, Nereyda A Attending Unavailable Patricia, Nereyda A Attending Unavailable Patricia, Nereyda A Attending Unavailable NILL, Francisco Zimmer Attending Unavailable Van Sung Referring Unavailable Patricia, Nereyda A Admitting Unavailable Patricia, Nereyda A Attending Unavailable Van Sung Consulting Unavailable MD Van Sung Consulting Unavailable Patricia, Nereyda A Admitting Unavailable Patricia, Nereyda A Attending Unavailable ROBINSON CHICAS Attending Unavailable BEBubba, BARRIE Gil Attending Unavailable ROBINSON CHICAS Attending Unavailable RUTHIE LINDA Attending Unavailable MOUKARBEL, CLARIBEL Attending Unavailable MOUKARBEL, CLARIBEL Attending Unavailable SCHUYLERRYDER Almodovar Attending Unavailable MOUKARBEL, CLARIBEL Attending Unavailable MOUKARBEL, CLARIBEL Attending Unavailable DANA APARICIO Attending Unavailable MOUKAGIANNI, CLARIBEL Referring Unavailable Allergies Allergy Classification Reported Allergen(s) Allergy Type Date of Onset Reaction(s) Facility (14 sources) Aminolevulinic Acid; 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: [aminolevulinic acid] Drug Allergy 11-04-20 13 Unknown [facility] Repository (1 source) NITRO PATCH; 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: [NITRO PATCH] Propensity to adverse reactions (disorder) 03-18-20 12 [facility] Repository (12 sources) Contrast media; 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: [Contrast Dye] Drug allergy Unknown (qualifier value) [facility] (12 sources) Hmg-Coa Reductase Inhibitors (Statins); 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: [statins] Allergy to substance Unknown [facility] (20 sources) Nitroglycerin; 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: [nitroglycerin] Drug Allergy 02-23-20 22 Unknown (qualifier value) [facility] (2 sources) black walnut pollen extract; 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: [NGFMMFT-XCM-OQW REDUCTASE INHIBITORS] Drug Allergy 04-21-20 17 [facility] Repository (1 source) Iodine (And Iodine Containting Drugs) Drug allergy (disorder) 05-28-20 16 [facility] Repository (1 source) Aminolevulinic Acid; 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: [aminolevulinic acid] Drug Allergy 11-04-20 13 [facility] Repository (1 source) Nitroglycerin; 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: [Nitroglycerin Patch] Drug Allergy [facility] Repository (1 source) IODINATED CONTRAST MEDIA; 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: [IODINATED CONTRAST MEDIA] Propensity to adverse reactions to drug (disorder) 07-17-20 [facility] Repository Medications Current Medications Medication Drug Class(es) [...] day(s), # 90 cap(s), Refills(s) 0, Pharmacy: [facility]/pharmacy #[id number], 185, cm, 06/10/23 10:45:00 EDT, Height/Length Dosing, 97, kg, 06/10/23 10:45:00 EDT, Weight Dosing Start Date: 06/10/23 Stop Date: 09/08/23 Status: Ordered Start: 08-28-2020 take 1 capsule by mo ut once daily Align 4 mg oral capsule 4 mg = 1 cap(s), Oral, Daily, Take after completing the Antibiotics course, # 28 cap(s), Refills(s) 0, Pharmacy: [facility]/pharmacy #[id number], 185, cm, 08/28/20 12:05:00 EDT, [...] Daily Prior to colonoscopy Per physician's instructions, [facility]/pharmacy #[id number], 185, cm, 03/31/22 9:58:00 EDT, [...] Date: 01/09/19 Status: Ordered 60 actuat tiotropium 0.86605 mg/actuat inhalation spray (10 sources) Anticholinergic Start: [...] water, # 160 cap(s), Refills(s) 1, Pharmacy: [facility]/pharmacy #[id number], 185, cm, 08/28/20 12:05:00 EDT, [...] disease (2 sources) Atherosclerotic heart disease of [place] coronary artery without angina pectoris; 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: [Atherosclerotic heart disease of [place] coronary artery without angina pectoris] Onset: 07-17-2022 [...] Onset: 04-30-2022 Episodic Other aftercare (1 source) halfway (current) use of aspirin; 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: [GREEN WARE CASTER CURRENT USE OF ASPIRIN] Onset: 08-27-2022 Episodic Other aftercare (1 source) halfway (current) use of anticoagulants; 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: [[facility] CURRNT USE ANTICOAGULANTS] Onset: 08-27-2022 Episodic Other aftercare (1 source) Other front counter attendant (current) drug therapy; 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: [OTH GREEN WARE CASTER CURRENT DRUG THERAPY] Onset: 08-27-2022 Episodic Other [...] Range Facility Orders Onlyon 03-21-2024 Orders Only [id number] Nadir Heredia 1940 M Date Provider Department Center 03/21/2024 [facility] Family History Problem Relation Age of Onset Coronary artery disease Father Family Status - Relation Status Age at Father [facility] Office Visiton 03-03-2024 Follow-up visit [id number] Steen 1940 M Date Provider Department Center 03/03/2024 CLARIBEL VILLALOBOS [facility] Family History Problem Relation Age of Onset Coronary artery disease Father Family Status - Relation Status Age at Father Level of Service:19322 [place] OFFICE/OUTPATIENT ESTABLISHED MOD MDM 30 MIN Reason for Visit and Comments: Follow-up [295333] [facility] 36on 12-29-2023 36 Called and spoke with patient and rescheduled patients appointment from 05/31 to 06/07. [facility] 36on 12-28-2023 36 Called patient lvm to contact the office back to reschedule appointment. [facility] Follow-Upon 11-17-2023 Follow-Up [id number] Nadir Heredia 1940 M Date Provider Department Center 11/17/2023 RUTHIE OWEN [facility] Comprehensiv Family History Problem Relation Age of Onset Coronary artery disease Father Family Status - Relation Status Age at Father Level of Service:57957 [place] OFFICE/OUTPATIENT ESTABLISHED MOD MDM 30 MIN () Reason for Visit and Comments: Follow-up [922127] Chronic Kidney Disease [176] [facility] Lab Reportson 10-21-2023 Lab Reports [id number] #1.00TIFF [facility] Gastroenterology Office/Clin ic Noteon 10-18-2023 Gastroenterology [...] fiber supplem (more content not included)... Normal [facility] Comment on above: Result Comment: Elec tronically Signed By: Patricia BRITT, Nereyda Marroquin\.mary\Date and Time Signed: 10/18/23 11:30 EST Ambulatory Visit Summaryon 1 12-14-2022 Ambulatory Visit Summary NADIR HEREDIA :1940 Visit Date:10/14/2023 Ambulatory Visit Instructions Your Diagnosis Constipation History of colon polyps Family history of colon cancer Your Care Team Attending Physician - Nereyda Gmoez CNP Primary Care Physician - Van Sung [...] PM EST With: Nereyda Gomez CNP Where: [facility] Normal [facility] Patient Educationon 10-14-20 23 Patient Education Gastroenterology [...] as fried or sweet foods. These include greenlandic fries, hamburgers, cookies, candies, and soda. ? Drink enough fluid to keep your urine pale yellow. General instructions ? Exercise regularly or as told by your health care provider. Try to do 150 minutes of moderate exercise each week. ? Use the bathroom when you have the urge to go. Do not hold it in. ? Take kqwe-iyu-piztxbt and prescription medicines only as told by [...] keep your urine pale yellow. ? Take zedn-iot-gsequnm and prescription medicines only as told by your health care provider. This includes any fiber supplements. This information is not intended to replace advice given to you by your health care provider. Make sure you discuss any questions you have with your health care provider. Document Revised: 09/18/2020 Document Reviewed: 09/18/2020 [employer] Patient Education ? 2022 [employer]. [facility] 36on 10-12-2023 36 Patient called to make you aware that he was in [facility] ED on (Wednesday) for SOB. He wanted you to look over his records. I have uploaded them all into his interactive media marketing strategist for your review. His BNP is increased to 4000 and was previously 2600 about 1 month ago. Looks like they gave him extra lasix in the ED and recommended he follow up with Dr. Sung outpatient. Can you please review and let me know if you'd like anything done/ordered? Thanks. Normal [facility] XR Abdomen 2 Viewson 023 XR [...] MARII Technologist: EDUARDA Technical Comments Radiation Dose: levi Lazar in mGy = . DAP = . Normal [facility] Lab Reportson 10-04-2023 Lab Reports [id number] 1#1.00TIFF Normal [facility] RAD - MISCon 10-04-2023 [facility] [id number] #1.00TIFF Normal [facility] Ambulatory Visit Summaryon 1 12-01-2022 Ambulatory Visit [...] PM EST With: Nereyda Gomez CNP Where: [facility] Invalid Interpretation Code Abdominal cramping [facility] Consent for Treatmenton 09-15 Consent for Treatment [id number] #1.00TIFF Normal [facility] Gastroenterology Office/Clin ic Noteon 10-01-2023 Gastroenterology Office/Clinic [...] educated t (more content not included)... Normal [facility] Comment on above: Result Comment: Elec tronically Signed By: Patricia BRITT, Nereyda Marroquin\.mary\Date and Time Signed: 10/01/23 12:54 EST Patient [...] Bulgur wheat. Millet. Quinoa. Bran muffins. Popcorn. [place] wafer crackers. Meats and other proteins Mcbride beans, kidney beans, and mendez beans. Soybeans. [...] Cream cheese. Sour cream. Fats and oils Mosier. Beverages Soft drinks. Other foods Cakes and [...] provider. Document Revised: (more content not included)... [facility] 36on 09-20-2023 36 Called and spoke with and rescheduled appointment and informed her patient would need to get labs done. [facility] 36 Patients called in to reschedule appointment from 09/08 [facility] Office Visiton 09-17-2023 Follow-up visit [id number] Nadir Heredia 1940 M Date Provider Department Center 09/17/2023 CLARIBEL VILLALOBOS [facility] Family History Problem Relation Age of Onset Coronary artery disease Father Family Status - Relation Status Age at Father Level of Service:74534 [place] OFFICE/OUTPATIENT ESTABLISHED MOD MDM 30-39 MIN Reason for Visit and Comments: Follow-up [000601] [facility] HP 08-31-2023 [facility] Cardiology - [facility] Clinic Subjective Nadir Heredia is a [...] extremity edema. He was admitted to the [facility] in August 2022 due to hyponatremia, hyperkalemia and acute kidney injury, leukocytosis secondary to COVID-19 causing dehydration. I saw him on 05/24/2023 and the office and he had significant evidence of volume overload by exam and echocardiogram. I intensified his diuretic regimen. He ended up getting admitted to the [facility] with acute heart failure exacerbation and [...] Allergies Allergen Reactions Iodinated Contrast Media Nitroglycerin Zfyizrm-Zsa-Lsk Reductase Inhibitors Medications Current Outpatient Medications: acyclovir [...] Take 1 ta (more content not included)... [facility] NURSNOTEon 08-31-2023 NURSNOTE Pt performed and passed bedside swallow study. RN educated pt on d/c instructions. RN encouraged pt to voice any questions or concerns. Pt verbalizes no questions or concerns at this time. Pt was wheeled off of unit with all of belongings. [facility] Telephoneon 08-24-2023 Telephone [id number] Nadir Heredia 1940 M Date Provider Department Center 08/24/2023 RABIA KONG [facility] HeartVAS Family History Problem Relation Age of Onset Coronary artery disease Father Family Status - Relation Status Age at Father [facility] Office Visiton 07-21-2023 Follow-up visit [id number] Nadir Heredia 1940 M Date Provider Department Center 07/21/2023 CLARIBEL VILLALOBOS MILKA [facility] Family History Problem Relation Age of Onset Coronary artery disease Father Family Status - Relation Status Age at Father Level of Service:78628 [place] OFFICE/OUTPATIENT ESTABLISHED MOD MDM 30-39 MIN Reason for Visit and Comments: Follow-up [888425] [facility] Office Visiton 06-14-2023 Follow-up visit [id number] Nadir Heredia 1940 M Date Provider Department Center 06/14/2023 RYDER RODRÍGUEZ MIL[facility] Family History Problem Relation Age of Onset Coronary artery disease Father Family Status - Relation Status Age at Father Level of Service:41588 [place] OFFICE/OUTPATIENT ESTABLISHED MOD MDM 30-39 MIN [facility] Ambulatory Visit Summaryon 0 06-10-2023 Ambulatory Visit [...] AM EDT With: Nereyda Gomez CNP Where: [facility] Normal [facility] Gastroenterology Office/Clin ic Noteon 06-10-2023 Gastroenterology Office/Clinic Note HPI Staff Nadir is an 83 y.o. male here for 2 month follow up He continues with intermittent diarrhea. He states he's been able to hold stool until reaches bathroom. He states he has terrible gas recently hospitalized at [facility] for heart failure He continues with [...] [facility] (more content not included)... Normal [facility] Comment on above: Result Comment: Elec tronically [...] liquor (44 mL). General instructions ? Take hrut-scx-xizvfnc and prescription medicines only as told by [...] 02/19/2021 D (more content not included)... Normal [facility] Office Visiton 05-24-2023 Follow-up visit [id number] Nadir Heredia 1940 M Date Provider Department Center 05/24/2023 CLARIBEL VILLALOBOS [facility] Family History Problem Relation Age of Onset Coronary artery disease Father Family Status - Relation Status Age at Father Level of Service:95052 [place] OFFICE/OUTPATIENT ESTABLISHED MOD MDM 30-39 MIN Normal [facility] Giardia, Direct, EIAon 04-22 G. lamblia Ag IA Ql (Stl) Negative Invalid Interpretation Code Negative [facility] Comment on above: Result Comment: Perf ormed at: [address] [id number] PhD Huan Vyas Performed By: #### 3 [id number], [id number], [id number], [id number], [id number], [id number] ####[facility] [address] [place] [address] O & P EXAM, ROUTINE, REFLEXo n 04-22-2023 Ova and parasites identified Concentration Nom (Stl) Comment Invalid Interpretation Code [facility] Comment on above: Result Comment: No o va, cysts, or parasites seen. One negative specimen does not rule out the possibility of a parasitic infection. Performed at: [address] [id number] PhD Huan Vyas Performed By: #### 3 [id number], [id number], [id number], [id number], [id number], [id number] ####[facility] [address] [place] [address] O & P Exam, Routineon 2022 Ova and parasites identified LM Nom (Unsp spec) Final report Invalid Interpretation Code [facility] Comment on above: Result Comment: Thes e results were obtained using wet preparation(s) and trichrome stained smear. This test does not include testing for Cryptosporidium parvum, Cyclospora, or Microsporidia. Performed at: [facility] [address] [place], [place] [id number] PhD Huan Vyas Performed By: #### 3 [id number], [id number], [id number], [id number], [id number], [id number] ####[facility] [address] [place] [address] CDiff PCRon 04-15-2023 CDiff PCR Unable to perform test due to consistency of stool. C. Difficile testing will only be performed on diarrheal (unformed) stool unless ileus due to C. difficile is expected. Reference: Clinical Practice Guidelines for Clostridium difficile Infection in Adults, Infection and Hospital Epidemiology March 2010, Vol 31, No 5. Normal [facility] Cdiff Specimen Acceptable Unacceptable Normal [facility] Comment on above: Performed By: #### 3 [id number], 63293916, [id number], [id number], [id number], [id number] ####[facility] [address] [place] [address] Order Cancelled YES Normal [facility] Comment on above: Performed By: #### 3 [id number], [id number], [id number], 93460422, [id number], [id number] ####[facility] [address] [place] [address] Enteric Panel by PCRon 04-15 C. coli+jejuni+upsaliens is DNA SULTANA+non-probe Ql (Stl) Not detected Normal [facility] Comment on above: Result Comment: Test ing was performed utilizing reverse baggage porter (RT), polymerase chain reaction (PCR), and array [...] nulcleic acid test. Performed By: #### 3 4526058, 06619218, [id number], 44344400, [id number], [id number] ####[facility] [address] [place] [address] E. coli stx1+stx2 genes SULTANA+non-probe Ql (Stl) Negative Normal [facility] Comment on above: Performed By: #### 3 [id number], 03673865, [id number], 57262150, [id number], [id number] ####[facility] [address] [place] [address] Enteric Panel by PCR Negative Normal [facility] Enteric Panel Intrl QC Pass Normal [facility] Comment on above: Result Comment: Test ing was performed utilizing reverse baggage porter (RT), polymerase chain reaction (PCR), and array [...] 1 and 2. Performed By: #### 3 0769879, 18680968, [id number], 21314981, [id number], 24045402 ####[facility] [address] [place] [address] Norovirus genogroup I+II RNA SULTANA+non-probe Ql (Stl) Not detected Normal [facility] Comment on above: Performed By: #### 3 4373265, 30511569, [id number], 56748339, [id number], 77744624 ####[facility] [address] [place] [address] Rotavirus A RNA SULTANA+non-probe Ql (Stl) Not detected Normal [facility] Comment on above: Performed By: #### 3 7143332, 50404035, [id number], 65492587, [id number], 73603551 ####[facility] [address] [place] [address] S. enterica+bongori DNA SULTANA+non-probe Ql (Stl) Not detected Normal [facility] Comment on above: Result Comment: This test result should be correlated with clinical presentations and medical history by a healthcare provider to determine its clinical significance. Performed By: #### 3 8435633, 96975274, [id number], 15749338, [id number], [id number] ####[facility] [address] [place] [address] Shigella species+EIEC invasion plasmid antigen H ipaH gene SULTANA+non-probe Ql (Stl) Not detected Normal [facility] Comment on above: Performed By: #### 3 8562469, 60388543, 2634521917, 57656936, 8464195560, 44710165 ####[address] [place] [address] V. cholerae+parahaemolyt icus+vulnificus DNA SULTANA+non-probe Ql (Stl) Not detected Normal [facility] Comment on above: Performed By: #### 3 3434064, 01682281, [id number], 33135302, [id number], 27596400 ####[facility] [address] [place] [address] Y. enterocolitica DNA SULTANA+non-probe Ql (Stl) Not detected Normal [facility] Comment on above: Performed By: #### 3 4917830, 32807761, [id number], 33604203, 5955497225, 33615694 ####[facility] [address] [place] [address] Fecal WBC Lactoferrinon Fecal WBC Lactoferrin Negative Normal Negative [facility] Comment on above: Result Comment: The semi-quantitative detection of elevated levels of fecal lactoferrin is a marker for fecal leukocytes and an indication of intestinal inflammation. Performed By: #### 3 [id number], 52009388, 0061297568, 84473162, [id number], 41146924 ####[facility] [address] [place] [address] MICRO OTHER TESTSOrdered By: Francisco Bolanos on 04-15-2023 Fecal WBC Lactoferrin Negative (04/15/23 7:00 AM) Normal Negative [facility] Man Sero Ambulatory Visit [...] AM EDT With: Nereyda Gomez CNP Where: [facility] Normal [facility] Auto Diffon 04-13-2023 Basophils/100 WBC (Bld) 0.9 % Normal 0.0-2.0 [facility] Comment on above: Order Comment: Order Added by Discern Expert. Performed By: #### 1 [id number], 3155933, 9045362, 7586702 ####[facility] [address] [place] [address] Basophils/Leukocytes Auto (Bld) [Pure # fraction] 0.1 E9/L Normal 0.0-0.2 [facility] Comment on above: Order Comment: Order Added by Discern Expert. Performed By: #### 1 8642186, 2021856, 9609944, 0957611 ####[facility] [address] [place] [address] Eosinophils/100 WBC (Bld) 5.1 % Normal 0.0-8.0 [facility] Comment on above: Order Comment: Order Added by Discern Expert. Performed By: #### 1 4940098, 4140434, 7332040, 7799498 ####[facility] [address] [place] [address] Eosinophils/Leukocyte s Auto (Bld) [Pure # fraction] 0.3 E9/L Normal 0.0-0.5 [facility] Comment on above: Order Comment: Order Added by Discern Expert. Performed By: #### 1 7767493, 0708660, 9535963, 0312937 ####[address] [place] [address] Lymphocytes/100 WBC (Bld) 13.6 % Low 14.0-50.0 [facility] Comment on above: Order Comment: Order Added by Discern Expert. Performed By: #### 1 [id number], 7210382, 8017422, 1633223 ####[address] [place] [address] Lymphocytes/Leukocyte s Auto (Bld) [Pure # fraction] 0.9 E9/L Low 1.0-4.0 [facility] Comment on above: Order Comment: Order Added by Discern Expert. Performed By: #### 1 2272417, 8872234, 9137500, 6824526 ####[address] [address] Monocytes/100 WBC (Bld) 11.9 % Normal 4.0-14.0 [facility] Comment on above: Order Comment: Order Added by Discern Expert. Performed By: #### 1 [id number], 5277241, 9782608, 1743676 ####[address] [address] Monocytes/Leukocytes Auto (Bld) [Pure # fraction] 0.8 E9/L Normal 0.2-1.0 [facility] Comment on above: Order Comment: Order Added by Discern Expert. Performed By: #### 1 [id number], 2052377, 8650405, 9907459 ####[address] [address] Neutrophils/100 WBC (Bld) 68.5 % Normal 36.0-75.0 [facility] Comment on above: Order Comment: Order Added by Discern Expert. Performed By: #### 1 [id number], 9191923, 6225401, 0891956 ####[address] [address] Neutrophils/Leukocyte s Auto (Bld) [Pure # fraction] 4.6 E9/L Normal 2.0-7.5 [facility] Comment on above: Order Comment: Order Added by Discern Expert. Performed By: #### 1 6122675, 2612208, 8226558, 7121433 ####[address] [place] [address] CBC w/ Auto Diffon 3 Erythrocyte distribution width (RBC) [Ratio] 14.7 % High 10.9-14.2 [facility] Comment on above: Performed By: #### 1 2903360, 5210097, 7715406, 1286617 ####[address] [place] [address] Hematocrit (Bld) [Volume fraction] 40.3 % Normal 37.7-49.0 [facility] Comment on above: Performed By: #### 1 4640761, 6733480, 1119810, 3775614 ####[address] [address] Hemoglobin (Bld) [Mass/Vol] 13.7 g/dL Normal 13.5-17.5 [facility] Comment on above: Performed By: #### 1 3762134, 7586824, 4084154, 4760888 ####[address] [address] MCH (RBC) [Entitic mass] 33.9 pg Normal 27.0-34.0 [facility] Comment on above: Performed By: #### 1 3231740, 3422670, 1846924, 3682632 ####[address] [address] MCHC (RBC) [Mass/Vol] 34.0 g/dL Normal 31.4-36.0 [facility] Comment on above: Performed By: #### 1 9102622, 1969495, 0281679, 4547563 ####[address] [address] MCV (RBC) [Entitic vol] 99.8 fL Normal 80.0-100.0 [facility] Comment on above: Performed By: #### 1 2644935, 2335487, 3254251, 5850461 ####[facility] [address] [place] [address] Platelet mean volume (Bld) [Entitic vol] 9.8 fL Normal 6.4-10.8 [facility] Comment on above: Performed By: #### 1 9698325, 7248513, 4424820, 8356699 ####[facility] [address] [place] [address] Platelets (Bld) [#/Vol] 161.0 E9/L Normal 150.0-500.0 [facility] Comment on above: Performed By: #### 1 6732001, 9938514, 4560696, 8727419 ####[facility] [address] [place] [address] RBC (Bld) [#/Vol] 4.0 E12/L Low 4.3-5.9 [facility] Comment on above: Performed By: #### 1 1378865, 0259838, 3867088, 2752126 ####[facility] [address] [place] [address] WBC corrected for nucl RBC Auto (Bld) [#/Vol] 6.7 E9/L Normal 4.0-11.0 [facility] Comment on above: Performed By: #### 1 2227243, 9842001, 3611275, 7237926 ####[facility] [address] [place] [address] CHEMISTRYOrdered By: SYSTEM SYSTEM on 04-13-2023 Albumin [Mass/Vol] 3.8 g/dL Normal 3.3 - 5.0 gm/dL FT Remisol Albumin/Globulin [Mass ratio] 1.4 {ratio} Normal [...] 04-13-2023 Albumin [Mass/Vol] 3.8 g/dL Normal 3.3-5.0 [facility] Comment on above: Performed By: #### 1 4554337, 4159237, 6742930, 4709034 ####[facility] [address] [place] [address] Albumin/Globulin (S) [Mass conc ratio] 1.4 Normal 1.1-2.2 [facility] Comment on above: Performed By: #### 1 5050582, 0998016, 3398748, 5761235 ####[facility] [address] [place] [address] ALP [Catalytic activity/Vol] 61 Int._Unit/L Normal 21-98 [facility] Comment on above: Performed By: #### 1 9287235, 3881299, 7594406, 9327831 ####[facility] [address] [place] [address] ALT No additional P-5'-P [Catalytic activity/Vol] 16 Int._Unit/L Normal 6-46 [facility] Comment on above: Performed By: #### 1 6132924, 2573013, 9724714, 7965017 ####[facility] [address] [place] [address] Anion gap [Moles/Vol] 13 mmol/L Normal 6-16 [facility] Comment on above: Performed By: #### 1 1401043, 4478746, 4181563, 6694748 ####[facility] [address] [place] [address] AST [Catalytic activity/Vol] 18 Int._Unit/L Normal 5-43 [facility] Comment on above: Performed By: #### 1 4432772, 9054459, 0392576, 5608083 ####[facility] [address] [place] [address] Bilirubin [Mass/Vol] 0.5 mg/dL Normal 0.0-1.1 [facility] Comment on above: Performed By: #### 1 5685471, 6556386, 2169411, 0019245 ####[facility] [address] [place] [address] Calcium [Mass/Vol] 8.8 mg/dL Low 8.9-11.1 [facility] Comment on above: Performed By: #### 1 0688479, 8762596, 2613779, 0910445 ####[facility] [address] [place] [address] Chloride [Moles/Vol] 104 mmol/L Normal 101-111 [facility] Comment on above: Performed By: #### 1 7088533, 8789084, 6282900, 6442302 ####[facility] [address] [place] [address] CO2 [Moles/Vol] 28 mmol/L Normal 21-31 [facility] Comment on above: Performed By: #### 1 7725645, 4202386, 7413589, 5087157 ####[facility] [address] [place] [address] Creatinine [Mass/Vol] 1.8 mg/dL High 0.5-1.3 [facility] Comment on above: Performed By: #### 1 2996565, 7579954, 5231460, 2764672 ####[facility] [address] [place] [address] Globulin (S) [Mass/Vol] 2.8 g/dL Normal 1.4-4.0 [facility] Comment on above: Performed By: #### 1 2135908, 8124134, 3982766, 2047535 ####[facility] [address] [place] [address] Glucose [Mass/Vol] 111 mg/dL Normal 55-199 [facility] Comment on above: Result Comment: If t his glucose result represents a fasting glucose, interpretation should refer to the following reference range: 55-99 mg/dL Performed By: #### 1 3685694, 1887415, 3144863, 8929906 ####[facility] [address] [place] [address] Potassium [Moles/Vol] 4.1 mmol/L Normal 3.5-5.3 [facility] Comment on above: Performed By: #### 1 2077430, 0900497, 9080975, 7293059 ####[facility] [address] [place] [address] Protein [Mass/Vol] 6.6 g/dL Normal 6.0-7.8 [facility] Comment on above: Performed By: #### 1 7894451, 2285432, 4880598, 5395801 ####[facility] [address] [place] [address] Sodium [Moles/Vol] 141 mmol/L Normal 135-145 [facility] Comment on above: Performed By: #### 1 0441964, 3740204, 6167856, 8033569 ####[facility] [address] [place] [address] Urea nitrogen [Mass/Vol] 24 mg/dL High 5-21 [facility] Comment on above: Performed By: #### 1 5981189, 4218406, 3849255, 5576879 ####[facility] [address] [place] [address] Urea nitrogen/Creatinine [Mass ratio] 13 No Units Normal 10-20 [facility] Comment on above: Performed By: #### 1 2951627, 9352707, 8831098, 7041805 ####[facility] [address] [place] [address] Consent for Treatmenton 03-17 Consent for Treatment [id number] #1.00CD:127 Normal [facility] Gastroenterology Office/Clin ic Noteon 04-13-2023 Gastroenterology Office/Clinic [...] 4 mg= (more content not included)... Normal [facility] Comment on above: Result Comment: Elec tronically [...] 4.0 E12/L Low 4.3 - 5.9 E12/L [facility] [place] HemeAutoSS WBC corrected for nucl RBC Auto (Bld) [#/Vol] 6.7 E9/L Normal 4.0 - 11.0 E9/L [facility] [place] [facility] Orders Onlyon 04-13-2023 Orders Only [id number] Nadir Heredia 1940 M Date Provider Department Center 04/13/2023 LU BYRD [facility] LISA Comprehensiv Family History Problem Relation Age of Onset Coronary artery disease Father Family Status - Relation Status Age at Father Normal [facility] Orders Only [id number] Nadir Heredia 1940 M Date Provider Department Center 04/13/2023 LU BYRD [facility] INT MED Comprehensiv Family History Problem Relation Age of Onset Coronary artery disease Father Family Status - Relation Status Age at Father Normal [facility] eGFRon 04-13-2023 GFR/1.73 sq M.predicted among non-blacks MDRD (S/P/Bld) [Vol rate/Area] 37 mL/min/1.73 m2 Low >=59 [facility] Comment on above: Order Comment: Order added by Discern Expert. Result Comment: Director Of Women'S Services rd kidney disease could be indicated at eGFR's of less than 60 mL/min/1.73m2. Kidney failure is indicated at less than 15 mL/min/1.73m2. Performed By: #### 1 1235175, 9778452, 1582261, 9993374 ####[facility] [address] [place] [address] 36on 04-08-2023 36 Patient contacted Normal [facility] Telephoneon 04-08-2023 Telephone [id number] Nadir Heredia 1940 Date Provider Department Center 04/08/2023 RUTHIE OWEN [facility] NEPHRO Comprehensiv Family History Problem Relation Age of Onset Coronary artery disease Father Family Status - Relation Status Age at Father Normal [facility] Office Visiton 04-07-2023 Follow-up visit [id number] Nadir Heredia 1940 M Date Provider Department Center 04/07/2023 RUTHIE OWEN [facility] Comprehensiv Family History Problem Relation Age of Onset Coronary artery disease Father Family Status - Relation Status Age at Father Level of Service:85905 [place] OFFICE/OUTPATIENT ESTABLISHED MOD MDM 30-39 MIN Reason for Visit and Comments: Follow-up [161730] Normal [facility] ALBUMINon 03-24-2023 Albumin [Mass/Vol] 3.3 g/dL Critically low 3.4-5.0 [facility] Comment on above: Performed By: #### M ERICK Faith, PHOS #### [facility] [address] [place] [address] Dr. David Magana GLYCOHEMOGLOBIN A1Con 2022 ADA RECOMMENDATION SEE BELOW Normal [facility] Comment on above: Result Comment: ADA RECOMMENDED LIMIT 4.0 - 6.0 ADA THERAPEUTIC TARGET < 7.0 ACTION SUGGESTED > 7.0 Performed By: #### A 1C #### [facility] [address] [address] [address] David Magana Glucose [Mass/Vol] 108 mg/dL Normal [facility] Comment on above: Performed By: #### A 1C #### [facility] [address] [address] [address] David Magana HbA1c (Bld) [Mass fraction] 5.4 % Normal 4.5-6.2 [facility] Comment on above: Performed By: #### A 1C #### [facility] [address] [address] [address] David Magana PHOSPHORUSon 03-24-2023 Phosphate [Mass/Vol] 3.6 mg/dL Normal 2.6-4.7 [facility] Comment on above: Performed By: #### M ERICK Faith, PHOS #### [facility] [address] [place] [address] Dr. David Magana PROF CHEM 8 (BAS METB)on Anion gap [Moles/Vol] 11.6 mmol/L Normal [facility] Comment on above: Performed By: #### M G, BMP, PHOS #### [facility] [address] [address] [address] David Magana Calcium [Mass/Vol] 8.9 mg/dL Normal 8.5-10.1 [facility] Comment on above: Performed By: #### M G, BMP, PHOS #### [facility] [address] [address] [address] David Magana Chloride [Moles/Vol] 107 mmol/L Normal 98-107 [facility] Comment on above: Performed By: #### M G, BMP, PHOS #### [facility] [address] [address] [address] David Magana CO2 [Moles/Vol] 30.8 mmol/L Normal 21.0-32.0 [facility] Comment on above: Performed By: #### M Marcell BMP, PHOS #### [facility] [address] [place] [address] Dr. David Magana Creatinine [Mass/Vol] 1.67 mg/dL Critically high 0.70-1.30 [facility] Comment on above: Performed By: #### M Marcell BMP, PHOS #### [facility] [address] [place] [address] Dr. David Magana EGFR-AF [place] 48 mL/min/1.73m2 Critically low >=60 [facility] Comment on above: Performed By: #### M Marcell, BMP, PHOS #### [facility] [address] [address] [address] David Magana EGFR-NON AF [place]IZ[place] 39 mL/min/1.73m2 Critically low >=60 [facility] Comment on above: Performed By: #### M G, BMP, PHOS #### [facility] [address] [address] [address] David Magana Glucose [Mass/Vol] 128 mg/dL Critically high 74-106 [facility] Comment on above: Performed By: #### M Marcell, BMP, PHOS #### [facility] [address] [place] [address] Dr. David Magana Potassium [Moles/Vol] 4.4 mmol/L Normal 3.5-5.1 [facility] Comment on above: Performed By: #### ERICK Jacques, PHOS #### [facility] [address] [address] [address] David Magana Sodium [Moles/Vol] 145 mmol/L Normal 136-145 [facility] Comment on above: Performed By: #### M ERICK Faith, PHOS #### [facility] [address] [place] [address] Dr. David Magana Urea nitrogen [Mass/Vol] 25.0 mg/dL Critically high 7.0-18.0 [facility] Comment on above: Performed By: #### ERICK Jacques, PHOS #### [facility] [address] [place] [address] Dr. David Magana Urea nitrogen/Creatinine [Mass ratio] 15.0 mg/mg Normal [facility] Comment on above: Performed By: #### ERICK Jacques, PHOS #### [facility] [address] [place] [address] Dr. David Magana VITAMIN D 25 OHon 03-24-2023 VIT D 25-OH 11.6 ng/mL Normal [facility] Comment on above: Performed By: #### C BC #### [facility] [address] [place] [address] Dr. David Magana VIT D RANGES SEE BELOW Normal [facility] Comment on above: Result Comment: <20 ng/mL Vit D deficient 20 - <30 ng/mL Vit D insufficient 30 - 100 ng/mL Vit D sufficient >100 ng/mL Potential Toxicity Performed By: #### C BC #### [facility] [address] [place] [address] Dr. David Magana Physician Referralon 023 Physician Referral [id number] #[id number]:127 Normal [facility] CBC AUTO DIFFon 02-27-2023 BASO # 0.0 103/ul Normal 0.0-0.1 [facility] Comment on above: Performed By: #### M ERICK Faith, PHOS #### [facility] [address] [place] [address] Dr. David Magana Basophils/100 WBC (Bld) 0.5 % Normal 0.2-2.0 [facility] Comment on above: Performed By: #### M Marcell BMP, PHOS #### [facility] [address] [place] [address] Dr. David Magana EO # 0.7 103/ul Normal 0.0-0.7 [facility] Comment on above: Performed By: #### ERICK Jacques, PHOS #### [facility] [address] [place] [address] Dr. David Magana Eosinophils/100 WBC (Bld) 9.3 % Critically high 0.9-7.0 [facility] Comment on above: Performed By: #### ERICK Jacques, PHOS #### [facility] [address] [place] [address] Dr. David Magana Erythrocyte distribution width (RBC) [Ratio] 14.6 % Normal 11.0-15.0 [facility] Comment on above: Performed By: #### ERICK Jacques, PHOS #### [facility] [address] [place] [address] Dr. David Magana Hematocrit (Bld) [Volume fraction] 41.5 % Critically low 42.0-54.0 [facility] Comment on above: Performed By: #### ERICK Jacques, PHOS #### [facility] [address] [place] [address] Dr. David Magana Hemoglobin (Bld) [Mass/Vol] 13.9 g/dL Critically low 14.0-18.0 [facility] Comment on above: Performed By: #### ERICK Jacques, PHOS #### [facility] [address] [place] [address] Dr. David Magana IG # 0.02 10e3/ul Normal 0.00-0.03 [facility] Comment on above: Performed By: #### M G, BMP, PHOS #### [facility] [address] [address] [address] David Magana IG % 0.3 % Normal 0.0-0.5 [facility] Comment on above: Performed By: #### M G, BMP, PHOS #### [facility] [address] [address] [address] David Magana LYMPH # 1.0 103/ul Critically low 1.2-3.8 [facility] Comment on above: Performed By: #### M G, BMP, PHOS #### [facility] [address] [address] [address] David Magana Lymphocytes/100 WBC (Bld) 13.0 % Critically low 20.5-60.0 [facility] Comment on above: Performed By: #### M G, BMP, PHOS #### [facility] [address] [place] [address] Dr. David Magana MANUAL DIFF REQ NO Normal [facility] Comment on above: Performed By: #### M G, BMP, PHOS #### [facility] [address] [place] [address] Dr. David Magana MCH (RBC) [Entitic mass] 33.5 pg Normal 25.9-34.0 [facility] Comment on above: Performed By: #### M G, BMP, PHOS #### [facility] [address] [place] [address] Dr. David Magana MCHC (RBC) [Mass/Vol] 33.5 g/dL Normal 29.9-35.2 [facility] Comment on above: Performed By: #### M G, BMP, PHOS #### [facility] [address] [address] [address] David Magana MCV (RBC) [Entitic vol] 100.0 fL Critically high 80.0-94.0 [facility] Comment on above: Performed By: #### M G, BMP, PHOS #### [facility] [address] [address] [address] David Magana MONO # 0.8 103/ul Normal 0.3-0.8 [facility] Comment on above: Performed By: #### ERICK Jacques, PHOS #### [facility] [address] [place] [address] Dr. David Magana Monocytes/100 WBC (Bld) 10.1 % Normal 1.7-12.0 [facility] Comment on above: Performed By: #### EIRCK Jacques, PHOS #### [facility] [address] [place] [address] Dr. David Magana NEUT # 5.0 103/ul Normal 1.4-6.5 [facility] Comment on above: Performed By: #### ERICK Jacques, PHOS #### [facility] [address] [place] [address] Dr. David Magana Neutrophils/100 WBC (Bld) 66.8 % Normal 43.0-75.0 [facility] Comment on above: Performed By: #### ERICK Jacques, PHOS #### [facility] [address] [place] [address] Dr. David Magana Platelet mean volume (Bld) [Entitic vol] 11.2 fL Normal 9.5-13.5 [facility] Comment on above: Performed By: #### ERICK Jacques, PHOS #### [facility] [address] [place] [address] Dr. David Magana PLT 187 103/ul Normal 150-450 [facility] Comment on above: Performed By: #### ERICK Jacques, PHOS #### [facility] [address] [place] [address] Dr. David Magana RBC 4.15 106/ul Critically low 4.70-6.[address] [facility] Comment on above: Performed By: #### REICK Jacques, PHOS #### [facility] [address] [place] [address] Dr. David Magana WBC 7.5 103/ul Normal 4.0-11.0 [facility] Comment on above: Performed By: #### ERICK Jacques, PHOS #### [facility] [address] [place] [address] Dr. David Magana PROF 14(COMP METB)on 023 Albumin [Mass/Vol] 3.5 g/dL Normal 3.4-5.0 [facility] Comment on above: Performed By: #### A 1C #### [facility] [address] [place] [address] Dr. David Magana Albumin/Globulin [Mass ratio] 1.1 {ratio} Normal [facility] Comment on above: Performed By: #### A 1C #### [facility] [address] [place] [address] Dr. David Magana ALP [Catalytic activity/Vol] 76 U/L Normal 46-116 [facility] Comment on above: Performed By: #### A 1C #### [facility] [address] [place] [address] Dr. David Magana ALT [Catalytic activity/Vol] 23 U/L Normal 16-63 [facility] Comment on above: Performed By: #### A 1C #### [facility] [address] [place] [address] Dr. David Magana Anion gap [Moles/Vol] 13.1 mmol/L Normal [facility] Comment on above: Performed By: #### A 1C #### [facility] [address] [place] [address] Dr. David Magana AST [Catalytic activity/Vol] 17 U/L Normal 15-37 [facility] Comment on above: Performed By: #### A 1C #### [facility] [address] [place] [address] Dr. David Magana Bilirubin [Mass/Vol] 0.7 mg/dL Normal 0.2-1.0 [facility] Comment on above: Performed By: #### A 1C #### [facility] [address] [place] [address] Dr. David Magana Calcium [Mass/Vol] 9.0 mg/dL Normal 8.5-10.1 [facility] Comment on above: Performed By: #### A 1C #### [facility] [address] [place] [address] Dr. David Magana Chloride [Moles/Vol] 105 mmol/L Normal 98-107 [facility] Comment on above: Performed By: #### A 1C #### [facility] [address] [place] [address] Dr. David Magana CO2 [Moles/Vol] 29.0 mmol/L Normal 21.0-32.0 [facility] Comment on above: Performed By: #### A 1C #### [facility] [address] [place] [address] Dr. David Magana Creatinine [Mass/Vol] 1.77 mg/dL Critically high 0.70-1.30 [facility] Comment on above: Performed By: #### A 1C #### [facility] [address] [place] [address] Dr. David Magana EGFR-AF [place] 45 mL/min/1.73m2 Critically low >=60 [facility] Comment on above: Performed By: #### A 1C #### [facility] [address] [place] [address] Dr. David Magana EGFR-NON AF [place]IZ[place] 37 mL/min/1.73m2 Critically low >=60 [facility] Comment on above: Performed By: #### A 1C #### [facility] [address] [place] [address] Dr. David Magana Globulin (S) [Mass/Vol] 3.3 g/dL Normal [facility] Comment on above: Performed By: #### A 1C #### [facility] [address] [place] [address] Dr. David Magana Glucose [Mass/Vol] 135 mg/dL Critically high 74-106 [facility] Comment on above: Performed By: #### A 1C #### [facility] [address] [place] [address] Dr. David Magana Potassium [Moles/Vol] 4.1 mmol/L Normal 3.5-5.1 [facility] Comment on above: Performed By: #### A 1C #### [facility] [address] [place] [address] Dr. David Magana Protein [Mass/Vol] 6.8 g/dL Normal 6.4-8.2 [facility] Comment on above: Performed By: #### A 1C #### [facility] [address] [place] [address] Dr. David Magana Sodium [Moles/Vol] 143 mmol/L Normal 136-145 [facility] Comment on above: Performed By: #### A 1C #### [facility] [address] [place] [address] Dr. David Magana Urea nitrogen [Mass/Vol] 31.0 mg/dL Critically high 7.0-18.0 [facility] Comment on above: Performed By: #### A 1C #### [facility] [address] [place] [address] Dr. David Magana Urea nitrogen/Creatinine [Mass ratio] 17.5 mg/mg Normal [facility] Comment on above: Performed By: #### A 1C #### [facility] [address] [place] [address] Dr. David Magana PROTIMEon 02-27-2023 INR Coag (PPP) [Relative time] 0.99 {INR} Normal [facility] Comment on above: Performed By: #### A 1C #### [facility] [address] [place] [address] Dr. David Magana INR GUIDELINES SEE BELOW Normal [facility] Comment on above: Result Comment: IDANIA RED INR: 2.0 - 3.0 CONDITIONS NOT LISTED BELOW 2.5 - 3.5 FOR PROSTHETIC HEART VALVE REPLACEMENT 2.5 - 3.5 RECURRENT THROMBOSIS Performed By: #### A 1C #### [facility] [address] [place] [address] Dr. David Magana PT Coag (PPP) [Time] 10.5 s Normal 9.0-11.6 [facility] Comment on above: Performed By: #### A 1C #### [facility] [address] [place] [address] Dr. David Magana PTTon 02-27-2023 aPTT Coag (Bld) [Time] 33.0 s Normal 22.3-36.2 [facility] Comment on above: Performed By: #### P OCGLUC #### [facility] [address] [address] [address] David Magana ALBUMINon 12-28-2022 Albumin [Mass/Vol] 3.6 g/dL Normal 3.4-5.0 [facility] Comment on above: Performed By: #### C BC #### [facility] [address] [address] [address] David Magana GLYCOHEMOGLOBIN A1Con 2022 ADA RECOMMENDATION SEE BELOW Normal [facility] Comment on above: Result Comment: ADA RECOMMENDED LIMIT 4.0 - 6.0 ADA THERAPEUTIC TARGET < 7.0 ACTION SUGGESTED > 7.0 Performed By: #### P OCGLUC #### [facility] [address] [place] [address] Dr. David Magana Glucose [Mass/Vol] 140 mg/dL Normal [facility] Comment on above: Performed By: #### P OCGLUC #### [facility] [address] [address] [address] David Magana HbA1c (Bld) [Mass fraction] 6.5 % Critically high 4.5-6.2 [facility] Comment on above: Performed By: #### P OCGLUC #### [facility] [address] [place] [address] Dr. David Magana MAGNESIUMon 12-28-2022 Magnesium [Mass/Vol] 2.3 mg/dL Normal 1.8-2.4 [facility] Comment on above: Performed By: #### P OCGLUC #### [facility] [address] [place] [address] Dr. David Magana PROF CHEM 8 (BAS METB)on Anion gap [Moles/Vol] 13.2 mmol/L Normal [facility] Comment on above: Performed By: #### P OCGLUC #### [facility] [address] [place] [address] Dr. David Magana Calcium [Mass/Vol] 9.0 mg/dL Normal 8.5-10.1 [facility] Comment on above: Performed By: #### P OCGLUC #### [facility] [address] [address] [address] David Magana Chloride [Moles/Vol] 105 mmol/L Normal 98-107 [facility] Comment on above: Performed By: #### P OCGLUC #### [facility] [address] [address] [address] David Magana CO2 [Moles/Vol] 28.9 mmol/L Normal 21.0-32.0 [facility] Comment on above: Performed By: #### P OCGLUC #### [facility] [address] [address] [address] David Magana Creatinine [Mass/Vol] 1.66 mg/dL Critically high 0.70-1.30 [facility] Comment on above: Performed By: #### P OCGLUC #### [facility] [address] [address] [address] David Magana EGFR-AF [place]IZ[place] 48 mL/min/1.73m2 Critically low >=60 [facility] Comment on above: Performed By: #### P OCGLUC #### [facility] [address] [address] [address] David Magana EGFR-NON AF CITIZEN [place] 40 mL/min/1.73m2 Critically low >=60 [facility] Comment on above: Performed By: #### P OCGLUC #### [facility] [address] [address] [address] David Magana Glucose [Mass/Vol] 123 mg/dL Critically high 74-106 [facility] Comment on above: Performed By: #### P OCGLUC #### [facility] [address] [address] [address] David Magana Potassium [Moles/Vol] 4.1 mmol/L Normal 3.5-5.1 [facility] Comment on above: Performed By: #### P OCGLUC #### [facility] [address] [address] [address] David Magana Sodium [Moles/Vol] 143 mmol/L Normal 136-145 [facility] Comment on above: Performed By: #### P OCGLUC #### [facility] [address] [place] [address] Dr. David Magana Urea nitrogen [Mass/Vol] 29.0 mg/dL Critically high 7.0-18.0 [facility] Comment on above: Performed By: #### P OCGLUC #### [facility] [address] [place] [address] Dr. David Magana Urea nitrogen/Creatinine [Mass ratio] 17.5 mg/mg Normal [facility] Comment on above: Performed By: #### P OCGLUC #### [facility] [address] [place] [address] Dr. David Magana URINE T PROTEIN CREAT RATIOo n 12-28-2022 UR TOTAL PROTEIN <6.0 Normal <=12.0 [facility] Comment on above: Performed By: #### M Marcell BMP, PHOS #### [facility] [address] [place] [address] Dr. David Magana URINE CREAT 41.21 mg/dL Normal 20.00-300.00 [facility] Comment on above: Performed By: #### M G BMP, PHOS #### [facility] [address] [place] [address] Dr. David Magana ALBUMINon 11-16-2022 Albumin [Mass/Vol] 3.3 g/dL Critically low 3.4-5.0 [facility] Comment on above: Performed By: #### C BC #### [facility] [address] [place] [address] Dr. David Magana CREATININE URINEon URINE CREAT 19.69 mg/dL Critically low 20.00-300.00 [facility] Comment on above: Performed By: #### M G BMP, PHOS #### [facility] [address] [place] [address] Dr. David Magana HEMOGLOBINon 11-16-2022 Hemoglobin (Bld) [Mass/Vol] 14.9 g/dL Normal 14.0-18.0 [facility] Comment on above: Performed By: #### M G, BMP, PHOS #### [facility] [address] [place] [address] Dr. David Magana MAGNESIUMon 11-16-2022 Magnesium [Mass/Vol] 2.2 mg/dL Normal 1.8-2.4 [facility] Comment on above: Performed By: #### C BC #### [facility] [address] [place] [address] Dr. David Magana PHOSPHORUSon 11-16-2022 Phosphate [Mass/Vol] 3.9 mg/dL Normal 2.6-4.7 [facility] Comment on above: Performed By: #### C BC #### [facility] [address] [place] [address] Dr. David Magana PROF CHEM 8 (BAS METB)on Anion gap [Moles/Vol] 11.9 mmol/L Normal [facility] Comment on above: Performed By: #### C BC #### [facility] [address] [place] [address] Dr. David Magana Calcium [Mass/Vol] 8.8 mg/dL Normal 8.5-10.1 [facility] Comment on above: Performed By: #### C BC #### [facility] [address] [place] [address] Dr. David Magana Chloride [Moles/Vol] 104 mmol/L Normal 98-107 [facility] Comment on above: Performed By: #### C BC #### [facility] [address] [place] [address] Dr. David Magana CO2 [Moles/Vol] 27.4 mmol/L Normal 21.0-32.0 [facility] Comment on above: Performed By: #### C BC #### [facility] [address] [place] [address] Dr. David Magana Creatinine [Mass/Vol] 1.68 mg/dL Critically high 0.70-1.30 [facility] Comment on above: Performed By: #### C BC #### [facility] [address] [place] [address] Dr. David Magana EGFR-AF [place] 48 mL/min/1.73m2 Critically low >=60 [facility] Comment on above: Performed By: #### C BC #### [facility] [address] [place] [address] Dr. David Magana EGFR-NON AF [place]IZ[place] 39 mL/min/1.73m2 Critically low >=60 [facility] Comment on above: Performed By: #### C BC #### [facility] [address] [address] [address] David Magana Glucose [Mass/Vol] 212 mg/dL Critically high 74-106 [facility] Comment on above: Performed By: #### C BC #### [facility] [address] [place] [address] Dr. David Magana Potassium [Moles/Vol] 4.3 mmol/L Normal 3.5-5.1 [facility] Comment on above: Performed By: #### C BC #### [facility] [address] [place] [address] Dr. David Magana Sodium [Moles/Vol] 139 mmol/L Normal 136-145 [facility] Comment on above: Performed By: #### C BC #### [facility] [address] [place] [address] Dr. David Magana Urea nitrogen [Mass/Vol] 25.0 mg/dL Critically high 7.0-18.0 [facility] Comment on above: Performed By: #### C BC #### [facility] [address] [place] [address] Dr. David Magana Urea nitrogen/Creatinine [Mass ratio] 14.9 mg/mg Normal [facility] Comment on above: Performed By: #### C BC #### [facility] [address] [place] [address] Dr. David Magana PROTEIN RAND URINEon 023 UR PROT <5.0 Normal <=11.9 [facility] Comment on above: Performed By: #### M G, BMP, PHOS #### [facility] [address] [place] [address] Dr. David Magana US CHANI DOP LEG BILon 12-19-2 022 US CHANI DOP LEG PARIS EXAMINATION: [...] CLOVER PEREZ Date: 2022-11-02 16:21 Normal [facility] BNPon 07-22-2022 Natriuretic peptide B (Bld) [Mass/Vol] 2143.0 pg/mL Critically high <=1,800.0 [facility] Comment on above: Performed By: #### M ERICK Faith PHOS #### [facility] [address] [place] [address] Dr. David Magana CBC AUTO DIFFon 07-22-2022 BASO # 0.0 103/ul Normal 0.0-0.1 [facility] Comment on above: Performed By: #### A 1C #### [facility] [address] [address] [address] David Magana Basophils/100 WBC (Bld) 0.3 % Normal 0.2-2.0 [facility] Comment on above: Performed By: #### A 1C #### [facility] [address] [place] [address] Dr. David Magana EO # 0.3 103/ul Normal 0.0-0.7 [facility] Comment on above: Performed By: #### A 1C #### [facility] [address] [address] [address] David Magana Eosinophils/100 WBC (Bld) 2.4 % Normal 0.9-7.0 [facility] Comment on above: Performed By: #### A 1C #### [facility] [address] [place] [address] Dr. David Magana Erythrocyte distribution width (RBC) [Ratio] 13.4 % Normal 11.0-15.0 [facility] Comment on above: Performed By: #### A 1C #### [facility] [address] [address] [address] David Magana Hematocrit (Bld) [Volume fraction] 42.7 % Normal 42.0-54.0 [facility] Comment on above: Performed By: #### A 1C #### [facility] [address] [address] [address] David Magana Hemoglobin (Bld) [Mass/Vol] 14.2 g/dL Normal 14.0-18.0 [facility] Comment on above: Performed By: #### A 1C #### [facility] [address] [place] [address] Dr. David Magana IG # 0.18 10e3/ul Critically high 0.00-0.03 [facility] Comment on above: Performed By: #### A 1C #### [facility] [address] [place] [address] Dr. David Magana IG % 1.6 % Critically high 0.0-0.5 [facility] Comment on above: Performed By: #### A 1C #### [facility] [address] [place] [address] Dr. David Magana LYMPH # 0.9 103/ul Critically low 1.2-3.8 [facility] Comment on above: Performed By: #### A 1C #### [facility] [address] [place] [address] Dr. David Magana Lymphocytes/100 WBC (Bld) 8.1 % Critically low 20.5-60.0 [facility] Comment on above: Performed By: #### A 1C #### [facility] [address] [place] [address] Dr. David Magana MANUAL DIFF REQ NO Normal [facility] Comment on above: Performed By: #### A 1C #### [facility] [address] [place] [address] Dr. David Magana MCH (RBC) [Entitic mass] 33.3 pg Normal 25.9-34.0 [facility] Comment on above: Performed By: #### A 1C #### [facility] [address] [address] [address] David Magana MCHC (RBC) [Mass/Vol] 33.3 g/dL Normal 29.9-35.2 [facility] Comment on above: Performed By: #### A 1C #### [facility] [address] [address] [address] David Magana MCV (RBC) [Entitic vol] 100.2 fL Critically high 80.0-94.0 [facility] Comment on above: Performed By: #### A 1C #### [facility] [address] [address] [address] David Magana MONO # 1.2 103/ul Critically high 0.3-0.[address] [facility] Comment on above: Performed By: #### A 1C #### [facility] [address] [place] [address] Dr. David Magana Monocytes/100 WBC (Bld) 10.5 % Normal 1.7-12.0 [facility] Comment on above: Performed By: #### A 1C #### [facility] [address] [place] [address] Dr. David Magana NEUT # 8.9 103/ul Critically high 1.4-6.5 [facility] Comment on above: Performed By: #### A 1C #### [facility] [address] [place] [address] Dr. David Magana Neutrophils/100 WBC (Bld) 77.1 % Critically high 43.0-75.0 [facility] Comment on above: Performed By: #### A 1C #### [facility] [address] [address] [address] David Magana Platelet mean volume (Bld) [Entitic vol] 11.3 fL Normal 9.5-13.5 [facility] Comment on above: Performed By: #### A 1C #### [facility] [address] [address] [address] David Magana PLT 175 103/ul Normal 150-450 [facility] Comment on above: Performed By: #### A 1C #### [facility] [address] [address] [address] David Magana RBC 4.26 106/ul Critically low 4.70-6.10 [facility] Comment on above: Performed By: #### A 1C #### [facility] [address] [address] [address] David Magana WBC 11.5 103/ul Critically high 4.0-11.0 [facility] Comment on above: Performed By: #### A 1C #### [facility] [address] [address] [address] David Magana PROF 14(COMP METB)on 022 Albumin [Mass/Vol] 2.6 g/dL Critically low 3.4-5.0 [facility] Comment on above: Performed By: #### M Marcell BMP, PHOS #### [facility] [address] [place] [address] Dr. David Magana Albumin/Globulin [Mass ratio] 0.9 {ratio} Normal [facility] Comment on above: Performed By: #### M Marcell, BMP, PHOS #### [facility] [address] [address] [address] David Magana ALP [Catalytic activity/Vol] 49 U/L Normal 46-116 [facility] Comment on above: Performed By: #### M Marcell, BMP, PHOS #### [facility] [address] [place] [address] Dr. David Magana ALT [Catalytic activity/Vol] 25 U/L Normal 16-63 [facility] Comment on above: Performed By: #### M G, BMP, PHOS #### [facility] [address] [address] [address] David Magana Anion gap [Moles/Vol] 12.8 mmol/L Normal [facility] Comment on above: Performed By: #### M G, BMP, PHOS #### [facility] [address] [address] [address] David Magana AST [Catalytic activity/Vol] 9 U/L Critically low 15-37 [facility] Comment on above: Performed By: #### M G, BMP, PHOS #### [facility] [address] [place] [address] Dr. David Magana Bilirubin [Mass/Vol] 0.5 mg/dL Normal 0.2-1.0 [facility] Comment on above: Performed By: #### M G, BMP, PHOS #### [facility] [address] [place] [address] Dr. David Magana Calcium [Mass/Vol] 8.3 mg/dL Critically low 8.5-10.1 [facility] Comment on above: Performed By: #### M G, BMP, PHOS #### [facility] [address] [place] [address] Dr. David Magana Chloride [Moles/Vol] 105 mmol/L Normal 98-107 [facility] Comment on above: Performed By: #### M G, BMP, PHOS #### [facility] [address] [place] [address] Dr. David Magana CO2 [Moles/Vol] 24.2 mmol/L Normal 21.0-32.0 [facility] Comment on above: Performed By: #### M G, BMP, PHOS #### [facility] [address] [place] [address] Dr. David Magana Creatinine [Mass/Vol] 1.28 mg/dL Normal 0.70-1.30 [facility] Comment on above: Performed By: #### M G, BMP, PHOS #### [facility] [address] [place] [address] Dr. David Magana EGFR-AF [place] >60 Normal >=60 [facility] Comment on above: Performed By: #### M G, BMP, PHOS #### [facility] [address] [place] [address] Dr. David Magana EGFR-NON AF [place]IZ[place] 54 mL/min/1.73m2 Critically low >=60 [facility] Comment on above: Performed By: #### M G, BMP, PHOS #### [facility] [address] [place] [address] Dr. David Magana Globulin (S) [Mass/Vol] 2.9 g/dL Normal [facility] Comment on above: Performed By: #### ERICK Jacques, PHOS #### [facility] [address] [address] [address] David Magana Glucose [Mass/Vol] 205 mg/dL Critically high 74-106 [facility] Comment on above: Performed By: #### ERICK Jacques, PHOS #### [facility] [address] [address] [address] David Magana Potassium [Moles/Vol] 4.0 mmol/L Normal 3.5-5.1 [facility] Comment on above: Performed By: #### ERICK Jacques, PHOS #### [facility] [address] [place] [address] Dr. David Magana Protein [Mass/Vol] 5.5 g/dL Critically low 6.4-8.2 [facility] Comment on above: Performed By: #### ERICK Jacques, PHOS #### [facility] [address] [address] [address] David Magana Sodium [Moles/Vol] 138 mmol/L Normal 136-145 [facility] Comment on above: Performed By: #### ERICK Jacques, PHOS #### [facility] [address] [address] [address] David Magana Urea nitrogen [Mass/Vol] 36.0 mg/dL Critically high 7.0-18.0 [facility] Comment on above: Performed By: #### ERICK Jacques, PHOS #### [facility] [address] [address] [address] David Magana Urea nitrogen/Creatinine [Mass ratio] 28.1 mg/mg Normal [facility] Comment on above: Performed By: #### ERICK Jacques, PHOS #### [facility] [address] [address] [address] David Magana BNPon 07-21-2022 Natriuretic peptide B (Bld) [Mass/Vol] 3485.0 pg/mL Critically high <=1,800.0 [facility] Comment on above: Result Comment: repe ated Performed By: #### A 1C #### [facility] [address] [place] [address] Dr. David Magana CBC AUTO DIFFon 07-21-2022 BASO # 0.0 103/ul Normal 0.0-0.1 [facility] Comment on above: Performed By: #### C BC #### [facility] [address] [place] [address] Dr. David Magana Basophils/100 WBC (Bld) 0.3 % Normal 0.2-2.0 [facility] Comment on above: Performed By: #### C BC #### [facility] [address] [place] [address] Dr. David Magana EO # 0.2 103/ul Normal 0.0-0.7 [facility] Comment on above: Performed By: #### C BC #### [facility] [address] [place] [address] Dr. David Magana Eosinophils/100 WBC (Bld) 1.9 % Normal 0.9-7.0 [facility] Comment on above: Performed By: #### C BC #### [facility] [address] [place] [address] Dr. David Magana Erythrocyte distribution width (RBC) [Ratio] 13.4 % Normal 11.0-15.0 [facility] Comment on above: Performed By: #### C BC #### [facility] [address] [place] [address] Dr. David Magana Hematocrit (Bld) [Volume fraction] 42.5 % Normal 42.0-54.0 [facility] Comment on above: Performed By: #### C BC #### [facility] [address] [place] [address] Dr. David Magana Hemoglobin (Bld) [Mass/Vol] 14.2 g/dL Normal 14.0-18.0 [facility] Comment on above: Performed By: #### C BC #### [facility] [address] [place] [address] Dr. David Magana IG # 0.22 10e3/ul Critically high 0.00-0.03 [facility] Comment on above: Performed By: #### C BC #### [facility] [address] [place] [address] Dr. David Magana IG % 2.1 % Critically high 0.0-0.5 [facility] Comment on above: Performed By: #### C BC #### [facility] [address] [place] [address] Dr. David Magana LYMPH # 0.8 103/ul Critically low 1.2-3.8 [facility] Comment on above: Performed By: #### C BC #### [facility] [address] [place] [address] Dr. David Magana Lymphocytes/100 WBC (Bld) 7.7 % Critically low 20.5-60.0 [facility] Comment on above: Performed By: #### C BC #### [facility] [address] [place] [address] Dr. David Magana MANUAL DIFF REQ NO Normal [facility] Comment on above: Performed By: #### C BC #### [facility] [address] [place] [address] Dr. David Magana MCH (RBC) [Entitic mass] 33.0 pg Normal 25.9-34.0 [facility] Comment on above: Performed By: #### C BC #### [facility] [address] [place] [address] Dr. David Magana MCHC (RBC) [Mass/Vol] 33.4 g/dL Normal 29.9-35.2 [facility] Comment on above: Performed By: #### C BC #### [facility] [address] [place] [address] Dr. David Magana MCV (RBC) [Entitic vol] 98.8 fL Critically high 80.0-94.0 [facility] Comment on above: Performed By: #### C BC #### [facility] [address] [place] [address] Dr. David Magana MONO # 1.0 103/ul Critically high 0.3-0.8 [facility] Comment on above: Performed By: #### C BC #### [facility] [address] [place] [address] Dr. David Magana Monocytes/100 WBC (Bld) 9.7 % Normal 1.7-12.0 [facility] Comment on above: Performed By: #### C BC #### [facility] [address] [place] [address] Dr. David Magana NEUT # 8.1 103/ul Critically high 1.4-6.5 [facility] Comment on above: Performed By: #### C BC #### [facility] [address] [place] [address] Dr. David Magana Neutrophils/100 WBC (Bld) 78.3 % Critically high 43.0-75.0 [facility] Comment on above: Performed By: #### C BC #### [facility] [address] [place] [address] Dr. David Magana Platelet mean volume (Bld) [Entitic vol] 10.7 fL Normal 9.5-13.5 [facility] Comment on above: Performed By: #### C BC #### [facility] [address] [place] [address] Dr. David Magana PLT 177 103/ul Normal 150-450 [facility] Comment on above: Performed By: #### C BC #### [facility] [address] [place] [address] Dr. David Magana RBC 4.30 106/ul Critically low 4.70-6.[address] [facility] Comment on above: Performed By: #### C BC #### [facility] [address] [place] [address] Dr. David Magana WBC 10.4 103/ul Normal 4.0-11.0 [facility] Comment on above: Performed By: #### C BC #### [facility] [address] [place] [address] Dr. David Magana PROF 14(COMP METB)on 022 Albumin [Mass/Vol] 2.6 g/dL Critically low 3.4-5.0 [facility] Comment on above: Performed By: #### A 1C #### [facility] [address] [place] [address] Dr. David Magana Albumin/Globulin [Mass ratio] 1.0 {ratio} Normal [facility] Comment on above: Performed By: #### A 1C #### [facility] [address] [place] [address] Dr. David Magana ALP [Catalytic activity/Vol] 50 U/L Normal 46-116 [facility] Comment on above: Performed By: #### A 1C #### [facility] [address] [place] [address] Dr. David Magana ALT [Catalytic activity/Vol] 28 U/L Normal 16-63 [facility] Comment on above: Performed By: #### A 1C #### [facility] [address] [place] [address] Dr. David Magana Anion gap [Moles/Vol] 11.4 mmol/L Normal [facility] Comment on above: Performed By: #### A 1C #### [facility] [address] [place] [address] Dr. David Magnaa AST [Catalytic activity/Vol] 13 U/L Critically low 15-37 [facility] Comment on above: Performed By: #### A 1C #### [facility] [address] [place] [address] Dr. David Magana Bilirubin [Mass/Vol] 0.4 mg/dL Normal 0.2-1.0 [facility] Comment on above: Performed By: #### A 1C #### [facility] [address] [place] [address] Dr. David Magana Calcium [Mass/Vol] 8.4 mg/dL Critically low 8.5-10.1 [facility] Comment on above: Performed By: #### A 1C #### [facility] [address] [place] [address] Dr. David Magana Chloride [Moles/Vol] 107 mmol/L Normal 98-107 [facility] Comment on above: Performed By: #### A 1C #### [facility] [address] [address] [address] David Magana CO2 [Moles/Vol] 24.6 mmol/L Normal 21.0-32.0 [facility] Comment on above: Performed By: #### A 1C #### [facility] [address] [address] [address] David Magana Creatinine [Mass/Vol] 1.26 mg/dL Normal 0.70-1.30 [facility] Comment on above: Performed By: #### A 1C #### [facility] [address] [place] [address] Dr. David Magana EGFR-AF [place]IZ[place] >60 Normal >=60 [facility] Comment on above: Performed By: #### A 1C #### [facility] [address] [place] [address] Dr. David Magana EGFR-NON AF CITIZEN [place] 55 mL/min/1.73m2 Critically low >=60 [facility] Comment on above: Performed By: #### A 1C #### [facility] [address] [place] [address] Dr. David Magana Globulin (S) [Mass/Vol] 2.7 g/dL Normal [facility] Comment on above: Performed By: #### A 1C #### [facility] [address] [place] [address] Dr. David Magana Glucose [Mass/Vol] 203 mg/dL Critically high 74-106 [facility] Comment on above: Performed By: #### A 1C #### [facility] [address] [place] [address] Dr. David Magana Potassium [Moles/Vol] 4.0 mmol/L Normal 3.5-5.1 [facility] Comment on above: Performed By: #### A 1C #### [facility] [address] [place] [address] Dr. David Magana Protein [Mass/Vol] 5.3 g/dL Critically low 6.4-8.2 [facility] Comment on above: Performed By: #### A 1C #### [facility] [address] [place] [address] Dr. David Magana Sodium [Moles/Vol] 139 mmol/L Normal 136-145 [facility] Comment on above: Performed By: #### A 1C #### [facility] [address] [place] [address] Dr. David Magana Urea nitrogen [Mass/Vol] 33.0 mg/dL Critically high 7.0-18.0 [facility] Comment on above: Performed By: #### A 1C #### [facility] [address] [place] [address] Dr. David Magana Urea nitrogen/Creatinine [Mass ratio] 26.2 mg/mg Normal [facility] Comment on above: Performed By: #### A 1C #### [facility] [address] [place] [address] Dr. David Magana BNPon 07-20-2022 Natriuretic peptide B (Bld) [Mass/Vol] 7478.0 pg/mL Critically high <=1,800.0 [facility] Comment on above: Performed By: #### A 1C #### [facility] [address] [place] [address] Dr. David Magana CBC AUTO DIFFon 07-20-2022 BASO # 0.1 103/ul Normal 0.0-0.1 [facility] Comment on above: Performed By: #### M Marcell BMP, PHOS #### [facility] [address] [place] [address] Dr. David Magana Basophils/100 WBC (Bld) 0.8 % Normal 0.2-2.0 [facility] Comment on above: Performed By: #### M G, BMP, PHOS #### [facility] [address] [place] [address] Dr. David Magana EO # 0.1 103/ul Normal 0.0-0.7 [facility] Comment on above: Performed By: #### M G, BMP, PHOS #### [facility] [address] [place] [address] Dr. David Magana Eosinophils/100 WBC (Bld) 0.6 % Critically low 0.9-7.0 [facility] Comment on above: Performed By: #### ERICK Jacques, PHOS #### [facility] [address] [place] [address] Dr. David Magana Erythrocyte distribution width (RBC) [Ratio] 13.4 % Normal 11.0-15.0 [facility] Comment on above: Performed By: #### ERICK Jacques, PHOS #### [facility] [address] [place] [address] Dr. David Magana Hematocrit (Bld) [Volume fraction] 43.2 % Normal 42.0-54.0 [facility] Comment on above: Performed By: #### ERICK Jacques, PHOS #### [facility] [address] [place] [address] Dr. David Magana Hemoglobin (Bld) [Mass/Vol] 14.2 g/dL Normal 14.0-18.0 [facility] Comment on above: Performed By: #### ERICK Jacques, PHOS #### [facility] [address] [place] [address] Dr. David Magana IG # 0.21 10e3/ul Critically high 0.00-0.03 [facility] Comment on above: Performed By: #### ERICK Jacques, PHOS #### [facility] [address] [place] [address] Dr. David Magana IG % 2.0 % Critically high 0.0-0.[address] [facility] Comment on above: Performed By: #### ERICK Jacques, PHOS #### [facility] [address] [place] [address] Dr. David Magana LYMPH # 0.8 103/ul Critically low 1.2-3.8 [facility] Comment on above: Performed By: #### ERICK Jacques, PHOS #### [facility] [address] [place] [address] Dr. David Magana Lymphocytes/100 WBC (Bld) 7.7 % Critically low 20.5-60.0 [facility] Comment on above: Performed By: #### ERICK Jacques, PHOS #### [facility] [address] [place] [address] Dr. David Magana MANUAL DIFF REQ NO Normal [facility] Comment on above: Performed By: #### M G, BMP, PHOS #### [facility] [address] [place] [address] Dr. David Magana MCH (RBC) [Entitic mass] 33.2 pg Normal 25.9-34.0 [facility] Comment on above: Performed By: #### M G, BMP, PHOS #### [facility] [address] [place] [address] Dr. David Magana MCHC (RBC) [Mass/Vol] 32.9 g/dL Normal 29.9-35.2 [facility] Comment on above: Performed By: #### M G, BMP, PHOS #### [facility] [address] [place] [address] Dr. David Magana MCV (RBC) [Entitic vol] 100.9 fL Critically high 80.0-94.0 [facility] Comment on above: Performed By: #### M G, BMP, PHOS #### [facility] [address] [place] [address] Dr. David Magana MONO # 1.0 103/ul Critically high 0.3-0.8 [facility] Comment on above: Performed By: #### M G, BMP, PHOS #### [facility] [address] [place] [address] Dr. David Magana Monocytes/100 WBC (Bld) 10.0 % Normal 1.7-12.0 [facility] Comment on above: Performed By: #### M G, BMP, PHOS #### [facility] [address] [place] [address] Dr. David Magana NEUT # 8.1 103/ul Critically high 1.4-6.5 [facility] Comment on above: Performed By: #### M G, BMP, PHOS #### [facility] [address] [place] [address] Dr. David Magana Neutrophils/100 WBC (Bld) 78.9 % Critically high 43.0-75.0 [facility] Comment on above: Performed By: #### ERICK Jacques, PHOS #### [facility] [address] [place] [address] Dr. David Magana Platelet mean volume (Bld) [Entitic vol] 10.8 fL Normal 9.5-13.5 [facility] Comment on above: Performed By: #### ERICK Jacques, PHOS #### [facility] [address] [place] [address] Dr. David Magana PLT 172 103/ul Normal 150-450 [facility] Comment on above: Performed By: #### ERICK Jacques, PHOS #### [facility] [address] [place] [address] Dr. David Magana RBC 4.28 106/ul Critically low 4.70-6.10 [facility] Comment on above: Performed By: #### ERICK Jacques, PHOS #### [facility] [address] [place] [address] Dr. David Magana WBC 10.3 103/ul Normal 4.0-11.0 [facility] Comment on above: Performed By: #### ERICK Jacques, PHOS #### [facility] [address] [place] [address] Dr. David Magana CULTURE URINEon 07-20-2022 CULTURE [...] Trimethoprim/Sulfame thoxazole >=320 R F Normal [facility] Comment on above: Performed By: #### ERICK Jacques, PHOS #### [facility] [address] [address] [address] David Magana PROF 14(COMP METB)on 022 Albumin [Mass/Vol] 2.6 g/dL Critically low 3.4-5.0 [facility] Comment on above: Performed By: #### A 1C #### [facility] [address] [place] [address] Dr. David Magana Albumin/Globulin [Mass ratio] 0.9 {ratio} Normal [facility] Comment on above: Performed By: #### A 1C #### [facility] [address] [place] [address] Dr. David Magana ALP [Catalytic activity/Vol] 48 U/L Normal 46-116 [facility] Comment on above: Performed By: #### A 1C #### [facility] [address] [place] [address] Dr. David Magana ALT [Catalytic activity/Vol] 27 U/L Normal 16-63 [facility] Comment on above: Performed By: #### A 1C #### [facility] [address] [place] [address] Dr. David Magana Anion gap [Moles/Vol] 13.4 mmol/L Normal [facility] Comment on above: Performed By: #### A 1C #### [facility] [address] [place] [address] Dr. David Magana AST [Catalytic activity/Vol] 22 U/L Normal 15-37 [facility] Comment on above: Performed By: #### A 1C #### [facility] [address] [place] [address] Dr. David Magana Bilirubin [Mass/Vol] 0.5 mg/dL Normal 0.2-1.0 [facility] Comment on above: Performed By: #### A 1C #### [facility] [address] [place] [address] Dr. David Magana Calcium [Mass/Vol] 8.3 mg/dL Critically low 8.5-10.1 [facility] Comment on above: Performed By: #### A 1C #### [facility] [address] [address] [address] David Magana Chloride [Moles/Vol] 105 mmol/L Normal 98-107 [facility] Comment on above: Performed By: #### A 1C #### [facility] [address] [address] [address] David Magana CO2 [Moles/Vol] 21.0 mmol/L Normal 21.0-32.0 [facility] Comment on above: Performed By: #### A 1C #### [facility] [address] [address] [address] David Magana Creatinine [Mass/Vol] 1.38 mg/dL Critically high 0.70-1.30 [facility] Comment on above: Performed By: #### A 1C #### [facility] [address] [address] [address] David Magana EGFR-AF [place] 60 mL/min/1.73m2 Normal >=60 [facility] Comment on above: Performed By: #### A 1C #### [facility] [address] [address] [address] David Magana EGFR-NON AF [place]IZ[place] 49 mL/min/1.73m2 Critically low >=60 [facility] Comment on above: Performed By: #### A 1C #### [facility] [address] [address] [address] David Magana Globulin (S) [Mass/Vol] 2.8 g/dL Normal [facility] Comment on above: Performed By: #### A 1C #### [facility] [address] [address] [address] David Magana Glucose [Mass/Vol] 156 mg/dL Critically high 74-106 [facility] Comment on above: Performed By: #### A 1C #### [facility] [address] [address] [address] David Magana Potassium [Moles/Vol] 4.4 mmol/L Normal 3.5-5.1 [facility] Comment on above: Performed By: #### A 1C #### [facility] [address] [place] [address] Dr. David Magana Protein [Mass/Vol] 5.4 g/dL Critically low 6.4-8.2 [facility] Comment on above: Performed By: #### A 1C #### [facility] [address] [place] [address] Dr. David Magana Sodium [Moles/Vol] 135 mmol/L Critically low 136-145 Th [facility] Comment on above: Performed By: #### A 1C #### [facility] [address] [place] [address] Dr. David Magana Urea nitrogen [Mass/Vol] 40.0 mg/dL Critically high 7.0-18.0 [facility] Comment on above: Performed By: #### A 1C #### [facility] [address] [place] [address] Dr. David Magana Urea nitrogen/Creatinine [Mass ratio] 29.0 mg/mg Normal [facility] Comment on above: Performed By: #### A 1C #### [facility] [address] [place] [address] Dr. David Magana BNPon 07-19-2022 Natriuretic peptide B (Bld) [Mass/Vol] 32638.0 pg/mL Critically high <=1,800.0 [facility] Comment on above: Performed By: #### C VDTBH #### [facility] [address] [place] [address] Dr. David Magana CBC AUTO DIFFon 07-19-2022 BASO # 0.0 103/ul Normal 0.0-0.1 [facility] Comment on above: Performed By: #### C BC #### [facility] [address] [place] [address] Dr. David Magana Basophils/100 WBC (Bld) 0.3 % Normal 0.2-2.0 [facility] Comment on above: Performed By: #### C BC #### [facility] [address] [place] [address] Dr. David Magana EO # 0.0 103/ul Normal 0.0-0.7 [facility] Comment on above: Performed By: #### C BC #### [facility] [address] [address] [address] David Magana Eosinophils/100 WBC (Bld) 0.2 % Critically low 0.9-7.0 [facility] Comment on above: Performed By: #### C BC #### [facility] [address] [address] [address] David Magana Erythrocyte distribution width (RBC) [Ratio] 13.4 % Normal 11.0-15.0 [facility] Comment on above: Performed By: #### C BC #### [facility] [address] [place] [address] Dr. David Magana Hematocrit (Bld) [Volume fraction] 43.4 % Normal 42.0-54.0 [facility] Comment on above: Performed By: #### C BC #### [facility] [address] [place] [address] Dr. David Magana Hemoglobin (Bld) [Mass/Vol] 14.6 g/dL Normal 14.0-18.0 [facility] Comment on above: Performed By: #### C BC #### [facility] [address] [place] [address] Dr. David Magana IG # 0.18 10e3/ul Critically high 0.00-0.03 [facility] Comment on above: Performed By: #### C BC #### [facility] [address] [place] [address] Dr. David Magana IG % 1.5 % Critically high 0.0-0.5 [facility] Comment on above: Performed By: #### C BC #### [facility] [address] [place] [address] Dr. David Magana LYMPH # 0.8 103/ul Critically low 1.2-3.8 [facility] Comment on above: Performed By: #### C BC #### [facility] [address] [place] [address] Dr. David Magana Lymphocytes/100 WBC (Bld) 6.6 % Critically low 20.5-60.0 [facility] Comment on above: Performed By: #### C BC #### [facility] [address] [place] [address] Dr. David Magana MANUAL DIFF REQ NO Normal [facility] Comment on above: Performed By: #### C BC #### [facility] [address] [place] [address] Dr. David Magana MCH (RBC) [Entitic mass] 33.7 pg Normal 25.9-34.0 [facility] Comment on above: Performed By: #### C BC #### [facility] [address] [place] [address] Dr. David Magana MCHC (RBC) [Mass/Vol] 33.6 g/dL Normal 29.9-35.2 [facility] Comment on above: Performed By: #### C BC #### [facility] [address] [place] [address] Dr. David Magana MCV (RBC) [Entitic vol] 100.2 fL Critically high 80.0-94.0 [facility] Comment on above: Performed By: #### C BC #### [facility] [address] [place] [address] Dr. David Magana MONO # 1.1 103/ul Critically high 0.3-0.8 [facility] Comment on above: Performed By: #### C BC #### [facility] [address] [place] [address] Dr. David Magana Monocytes/100 WBC (Bld) 9.3 % Normal 1.7-12.0 [facility] Comment on above: Performed By: #### C BC #### [facility] [address] [place] [address] Dr. David Magana NEUT # 9.6 103/ul Critically high 1.4-6.[address] [facility] Comment on above: Performed By: #### C BC #### [facility] [address] [place] [address] Dr. David Magana Neutrophils/100 WBC (Bld) 82.1 % Critically high 43.0-75.0 [facility] Comment on above: Performed By: #### C BC #### [facility] [address] [address] [address] David Magana Platelet mean volume (Bld) [Entitic vol] 10.8 fL Normal 9.5-13.5 [facility] Comment on above: Performed By: #### C BC #### [facility] [address] [address] [address] David Magana PLT 202 103/ul Normal 150-450 [facility] Comment on above: Performed By: #### C BC #### [facility] [address] [address] [address] David Magana RBC 4.33 106/ul Critically low 4.70-6.10 [facility] Comment on above: Performed By: #### C BC #### [facility] [address] [place] [address] Dr. David Magana WBC 11.7 103/ul Critically high 4.0-11.0 [facility] Comment on above: Performed By: #### C BC #### [facility] [address] [place] [address] Dr. David Magana PROF 14(COMP METB)on 022 Albumin [Mass/Vol] 3.4 g/dL Normal 3.4-5.0 [facility] Comment on above: Performed By: #### A 1C #### [facility] [address] [place] [address] Dr. David Magana Albumin/Globulin [Mass ratio] 1.1 {ratio} Normal [facility] Comment on above: Performed By: #### A 1C #### [facility] [address] [place] [address] Dr. David Magana ALP [Catalytic activity/Vol] 63 U/L Normal 46-116 [facility] Comment on above: Performed By: #### A 1C #### [facility] [address] [place] [address] Dr. David Magana ALT [Catalytic activity/Vol] 34 U/L Normal 16-63 [facility] Comment on above: Performed By: #### A 1C #### [facility] [address] [address] [address] David Magana Anion gap [Moles/Vol] 20.9 mmol/L Normal [facility] Comment on above: Performed By: #### A 1C #### [facility] [address] [address] [address] David Magana AST [Catalytic activity/Vol] 18 U/L Normal 15-37 [facility] Comment on above: Performed By: #### A 1C #### [facility] [address] [address] [address] David Magana Bilirubin [Mass/Vol] 0.5 mg/dL Normal 0.2-1.0 [facility] Comment on above: Performed By: #### A 1C #### [facility] [address] [address] [address] David Magana Calcium [Mass/Vol] 8.5 mg/dL Normal 8.5-10.1 [facility] Comment on above: Performed By: #### A 1C #### [facility] [address] [address] [address] David Magana Chloride [Moles/Vol] 99 mmol/L Normal 98-107 [facility] Comment on above: Performed By: #### A 1C #### [facility] [address] [address] [address] David Magana CO2 [Moles/Vol] 19.1 mmol/L Critically low 21.0-32.0 [facility] Comment on above: Performed By: #### A 1C #### [facility] [address] [address] [address] David Magana Creatinine [Mass/Vol] 1.80 mg/dL Critically high 0.70-1.30 [facility] Comment on above: Performed By: #### A 1C #### [facility] [address] [address] [address] David Magana EGFR-AF [place] 44 mL/min/1.73m2 Critically low >=60 [facility] Comment on above: Performed By: #### A 1C #### [facility] [address] [address] [address] David Magana EGFR-NON AF [place]IZ[place] 36 mL/min/1.73m2 Critically low >=60 [facility] Comment on above: Performed By: #### A 1C #### [facility] [address] [address] [address] David Magana Globulin (S) [Mass/Vol] 3.2 g/dL Normal [facility] Comment on above: Performed By: #### A 1C #### [facility] [address] [address] [address] David Magana Glucose [Mass/Vol] 287 mg/dL Critically high 74-106 T [facility] Comment on above: Performed By: #### A 1C #### [facility] [address] [place] [address] Dr. David Magana Potassium [Moles/Vol] 5.0 mmol/L Normal 3.5-5.1 [facility] Comment on above: Performed By: #### A 1C #### [facility] [address] [address] [address] David Magana Protein [Mass/Vol] 6.6 g/dL Normal 6.4-8.2 [facility] Comment on above: Performed By: #### A 1C #### [facility] [address] [address] [address] David Magana Sodium [Moles/Vol] 134 mmol/L Critically low 136-145 Th [facility] Comment on above: Performed By: #### A 1C #### [facility] [address] [address] [address] David Magana Urea nitrogen [Mass/Vol] 51.0 mg/dL Critically high 7.0-18.0 [facility] Comment on above: Performed By: #### A 1C #### [facility] [address] [place], [place] [id number] Dr. David Magana Urea nitrogen/Creatinine [Mass ratio] 28.3 mg/mg Normal [facility] Comment on above: Performed By: #### A 1C #### [facility] [address] [place] [address] Dr. David Magana BLOOD GASES BTYon 07-18-2022 02 MODE NASAL CANNULA Normal [facility] Comment on above: Performed By: #### A 1C #### [facility] [address] [place] [address] Dr. David Magana ALLENS TEST Positive [facility] Comment on above: Performed By: #### A 1C #### [facility] [address] [place] [address] Dr. David Magana Base excess Calc (Bld) [Moles/Vol] -9.0000 mmol/L Critically low -2.0-2.0 [facility] Comment on above: Performed By: #### A 1C #### [facility] [address] [place] [address] Dr. David Magana BIPAP PRESSURE [facility] Comment on above: Performed By: #### A 1C #### [facility] [address] [place] [address] Dr. David Magana CPAP [facility] Comment on above: Performed By: #### A 1C #### [facility] [address] [place] [address] Dr. David Magana FIO2 [facility] Comment on above: Performed By: #### A 1C #### [facility] [address] [place] [address] Dr. David Magana HCO3 (Bld) [Moles/Vol] 18.4 mmol/L Critically low 22.0-26.0 [facility] Comment on above: Performed By: #### A 1C #### [facility] [address] [place] [address] Dr. David Magana LPM 1.5 Normal [facility] Comment on above: Performed By: #### A 1C #### [facility] [address] [place] [address] Dr. David Magana MINUTE VOLUME Normal [facility] Comment on above: Performed By: #### A 1C #### [facility] [address] [place] [address] Dr. David Magana Oxygen (Bld) [Partial pressure] 69.5 mm[Hg] Critically low 80.0-100.0 [facility] Comment on above: Performed By: #### A 1C #### [facility] [address] [place] [address] Dr. David Magana Oxygen saturation in Blood 94.2 % Critically low 95.0-100.0 [facility] Comment on above: Performed By: #### A 1C #### [facility] [address] [place] [address] Dr. David Magana PCO2 29.6 mmHg Critically low 35.0-45.0 [facility] Comment on above: Performed By: #### A 1C #### [facility] [address] [place] [address] Dr. David Magana [facility] Comment on above: Performed By: #### A 1C #### [facility] [address] [place] [address] Dr. David Magana pH (Bld) 7.355 [pH] Normal 7.350-7.450 [facility] Comment on above: Performed By: #### A 1C #### [facility] [address] [place] [address] Dr. David Magana [facility] Comment on above: Performed By: #### A 1C #### [facility] [address] [place] [address] Dr. David Magana [facility] Comment on above: Performed By: #### A 1C #### [facility] [address] [place] [address] Dr. David Magana PUNCTURE SITE LR [facility] Comment on above: Performed By: #### A 1C #### [facility] [address] [place] [address] Dr. David Magana RATE [facility] Comment on above: Performed By: #### A 1C #### [facility] [address] [place] [address] Dr. David Magana VENT MODE [facility] Comment on above: Performed By: #### A 1C #### [facility] [address] [place] [address] Dr. David Magana VT Normal [facility] Comment on above: Performed By: #### A 1C #### [facility] [address] [place] [address] Dr. David Magana BNPon 07-18-2022 Natriuretic peptide B (Bld) [Mass/Vol] 7047.0 pg/mL Critically high <=1,800.0 [facility] Comment on above: Performed By: #### C VDTBH #### [facility] [address] [place] [address] Dr. David Magana CARDIAC BARRIE 3-6on 2 CK [Catalytic activity/Vol] 396 U/L Critically high 39-308 [facility] Comment on above: Performed By: #### M G, BMP, PHOS #### [facility] [address] [place] [address] Dr. David Magana CK.MB [Mass/Vol] 2.94 ng/mL Normal <=3.60 [facility] [place] Comment on above: Performed By: #### M G, BMP, PHOS #### [facility] [address] [place] [address] Dr. David Magana HSTROP 11.1 pg/mL Normal 4.0-76.1 [facility] Comment on above: Result Comment: CUT- OFF POINTS HAVE BEEN ESTABLISHED BASED ON THE FOURTH UNIVERSAL DEFINITIONS OF MYOCARDIAL INFARCTION. THE UPPER REFERENCE LIMIT (URL) OF TROPONIN, DEFINED THE 99TH PERCENTILE OF cTnI DISTRIBUTION IN A REFERENCE POPULATION, HAS BEEN CONFIRMED THE DECISION THRESHOLD FOR [place] DIAGNOSIS. Performed By: #### M G, BMP, PHOS #### [facility] [address] [place] [address] Dr. David Magana CK [Catalytic activity/Vol] 58 U/L Normal 39-308 [facility] Comment on above: Performed By: #### M G, BMP, PHOS #### [facility] [address] [place] [address] Dr. David Magana CK.MB [Mass/Vol] 1.71 ng/mL Normal <=3.60 [facility] [place] Comment on above: Performed By: #### M G, BMP, PHOS #### [facility] [address] [place] [address] Dr. David Magana HSTROP 10.6 pg/mL Normal 4.0-76.1 [facility] Comment on above: Result Comment: CUT- OFF POINTS HAVE BEEN ESTABLISHED BASED ON THE FOURTH UNIVERSAL DEFINITIONS OF MYOCARDIAL INFARCTION. THE UPPER REFERENCE LIMIT (URL) OF TROPONIN, DEFINED THE 99TH PERCENTILE OF cTnI DISTRIBUTION IN A REFERENCE POPULATION, HAS BEEN CONFIRMED THE DECISION THRESHOLD FOR [place] DIAGNOSIS. Performed By: #### M G, BMP, PHOS #### [facility] [address] [place] [address] Dr. David Magana CBC AUTO DIFFon 07-18-2022 BASO # 0.0 103/ul Normal 0.0-0.1 [facility] Comment on above: Performed By: #### M G BMP, PHOS #### [facility] [address] [place] [address] Dr. David Magana Basophils/100 WBC (Bld) 0.2 % Normal 0.2-2.0 [facility] Comment on above: Performed By: #### M G BMP, PHOS #### [facility] [address] [place] [address] Dr. David Magana EO # 0.0 103/ul Normal 0.0-0.7 [facility] Comment on above: Performed By: #### M G BMP, PHOS #### [facility] [address] [place] [address] Dr. David Magana Eosinophils/100 WBC (Bld) 0.2 % Critically low 0.9-7.0 [facility] Comment on above: Performed By: #### M G BMP, PHOS #### [facility] [address] [place] [address] Dr. David Magana Erythrocyte distribution width (RBC) [Ratio] 13.2 % Normal 11.0-15.0 [facility] Comment on above: Performed By: #### M G, BMP, PHOS #### [facility] [address] [place] [address] Dr. David Magana Hematocrit (Bld) [Volume fraction] 43.8 % Normal 42.0-54.0 [facility] Comment on above: Performed By: #### M ERICK Faith, PHOS #### [facility] [address] [place] [address] Dr. David Magana Hemoglobin (Bld) [Mass/Vol] 14.5 g/dL Normal 14.0-18.0 [facility] Comment on above: Performed By: #### M ERICK Faith, PHOS #### [facility] [address] [place] [address] Dr. David Magana IG # 0.15 10e3/ul Critically high 0.00-0.03 [facility] Comment on above: Performed By: #### M ERICK Faith, PHOS #### [facility] [address] [place] [address] Dr. David Magana IG % 1.3 % Critically high 0.0-0.[address] [facility] Comment on above: Performed By: #### ERICK Jacques, PHOS #### [facility] [address] [place] [address] Dr. David Magana LYMPH # 0.5 103/ul Critically low 1.2-3.8 [facility] Comment on above: Performed By: #### M ERICK Faith, PHOS #### [facility] [address] [place] [address] Dr. David Magana Lymphocytes/100 WBC (Bld) 3.8 % Critically low 20.5-60.0 [facility] Comment on above: Performed By: #### M ERICK Faith, PHOS #### [facility] [address] [place] [address] Dr. David Magana MANUAL DIFF REQ NO Normal [facility] Comment on above: Performed By: #### M ERICK Faith, PHOS #### [facility] [address] [place] [address] Dr. David Magana MCH (RBC) [Entitic mass] 32.7 pg Normal 25.9-34.0 [facility] Comment on above: Performed By: #### M G, BMP, PHOS #### [facility] [address] [place] [address] Dr. David Magana MCHC (RBC) [Mass/Vol] 33.1 g/dL Normal 29.9-35.2 [facility] Comment on above: Performed By: #### M G, BMP, PHOS #### [facility] [address] [place] [address] Dr. David Magana MCV (RBC) [Entitic vol] 98.9 fL Critically high 80.0-94.0 [facility] Comment on above: Performed By: #### M G, BMP, PHOS #### [facility] [address] [place] [address] Dr. David Magana MONO # 0.7 103/ul Normal 0.3-0.8 [facility] Comment on above: Performed By: #### M Marcell BMP, PHOS #### [facility] [address] [place] [address] Dr. David Magana Monocytes/100 WBC (Bld) 5.7 % Normal 1.7-12.0 [facility] Comment on above: Performed By: #### M Marcell BMP, PHOS #### [facility] [address] [place] [address] Dr. David Magana NEUT # 10.4 103/ul Critically high 1.4-6.5 [facility] Comment on above: Performed By: #### M Marcell BMP, PHOS #### [facility] [address] [place] [address] Dr. David Magana Neutrophils/100 WBC (Bld) 88.8 % Critically high 43.0-75.0 [facility] Comment on above: Performed By: #### M Marcell BMP, PHOS #### [facility] [address] [place] [address] Dr. David Magana Platelet mean volume (Bld) [Entitic vol] 11.0 fL Normal 9.5-13.5 [facility] Comment on above: Performed By: #### M Marcell, BMP, PHOS #### [facility] [address] [address] [address] David Magana PLT 198 103/ul Normal 150-450 [facility] Comment on above: Performed By: #### M ERICK Faith, PHOS #### [facility] [address] [address] [address] David Magana RBC 4.43 106/ul Critically low 4.70-6.[address] [facility] Comment on above: Performed By: #### ERICK Jacques, PHOS #### [facility] [address] [address] [address] David Magana WBC 11.8 103/ul Critically high 4.0-11.0 [facility] [place] Comment on above: Performed By: #### ERICK Jacques PHOS #### [facility] [address] [address] HEAD WO CONon [...] FRANCISCO ZELAYA Date: 2022-07-18 05:12 Normal [facility] Covid-19 PCR (CVDTB)on SARS-CoV-2 (COVID-19) RNA USLTANA+probe Ql (Unsp spec) Detected Critically abnormal NOT DETECTED [facility] Comment on above: Result Comment: This test is not yet approved or cleared by the [place] FDA. When there are no FDA-approved or cleared tests available, and other criteria are met, FDA can make tests available under an emergency access mechanism called an Emergency Use Authorization (EUA). The EUA for this test is supported by the Personal Consultant of Health and Human Service's declaration that [...] used). Performed By: #### C VDTBH #### [facility] [address] [place] [address] Dr. David Magana D-DIMERon 07-18-2022 D-DIMER 1.69 mg/L FEU Critically high <=0.59 [facility] Comment on above: Performed By: #### C BC #### [facility] [address] [place] [address] Dr. David Magana D-DIMER COMMENTS SEE BELOW Normal [facility] Comment on above: Result Comment: [...] hospitalization. Performed By: #### C BC #### [facility] [address] [place] [address] Dr. David Magana POINT OF CARE GLUCOSEon 09-0 Glucose [Mass/Vol] 329 mg/dL Critically high 74-106 [facility] Comment on above: Performed By: #### P OCGLUC #### [facility] [address] [place] [address] Dr. David Magana Glucose [Mass/Vol] 354 mg/dL Critically high 74-106 [facility] Comment on above: Performed By: #### P OCGLUC #### [facility] [address] [place] [address] Dr. David Magana PROF 14(COMP METB)on 022 Albumin [Mass/Vol] 3.6 g/dL Normal 3.4-5.0 [facility] Comment on above: Performed By: #### C VDTBH #### [facility] [address] [address] [address] David Magana Albumin/Globulin [Mass ratio] 1.1 {ratio} Normal [facility] Comment on above: Performed By: #### C VDTBH #### [facility] [address] [address] [address] David Magana ALP [Catalytic activity/Vol] 67 U/L Normal 46-116 [facility] Comment on above: Performed By: #### C VDTBH #### [facility] [address] [place] [address] Dr. David Magana ALT [Catalytic activity/Vol] 33 U/L Normal 16-63 [facility] Comment on above: Performed By: #### C VDTBH #### [facility] [address] [place] [address] Dr. David Magana Anion gap [Moles/Vol] 23.5 mmol/L Normal [facility] Comment on above: Performed By: #### C VDTBH #### [facility] [address] [place] [address] Dr. David Magana AST [Catalytic activity/Vol] 13 U/L Critically low 15-37 [facility] Comment on above: Performed By: #### C VDTBH #### [facility] [address] [place] [address] Dr. David Magana Bilirubin [Mass/Vol] 0.6 mg/dL Normal 0.2-1.0 [facility] Comment on above: Performed By: #### C VDTBH #### [facility] [address] [place] [address] Dr. David Magana Calcium [Mass/Vol] 8.4 mg/dL Critically low 8.5-10.1 [facility] Comment on above: Performed By: #### C VDTB #### [facility] [address] [address] [address] David Magana Chloride [Moles/Vol] 93 mmol/L Critically low 98-107 [facility] Comment on above: Performed By: #### C VDTBH #### [facility] [address] [place] [address] Dr. David Magana CO2 [Moles/Vol] 17.9 mmol/L Critically low 21.0-32.0 [facility] Comment on above: Performed By: #### C VDTBH #### [facility] [address] [place] [address] Dr. David Magana Creatinine [Mass/Vol] 2.15 mg/dL Critically high 0.70-1.30 [facility] Comment on above: Performed By: #### C VDTBH #### [facility] [address] [place] [address] Dr. David Magana EGFR-AF [place]IZ[place] 36 mL/min/1.73m2 Critically low >=60 [facility] Comment on above: Performed By: #### C VDTBH #### [facility] [address] [place] [address] Dr. David Magana EGFR-NON AF CITIZEN [place] 30 mL/min/1.73m2 Critically low >=60 [facility] Comment on above: Performed By: #### C VDTBH #### [facility] [address] [place] [address] Dr. David Magana Globulin (S) [Mass/Vol] 3.2 g/dL Normal [facility] Comment on above: Performed By: #### C VDTBH #### [facility] [address] [place] [address] Dr. David Magana Glucose [Mass/Vol] 345 mg/dL Critically high 74-106 [facility] Comment on above: Performed By: #### C VDTBH #### [facility] [address] [place] [address] Dr. David Magana Potassium [Moles/Vol] 5.4 mmol/L Critically high 3.5-5.1 [facility] Comment on above: Performed By: #### C VDTBH #### [facility] [address] [place] [address] Dr. David Magana Performed By: #### K #### [facility] [address] [place] [address] Dr. David Magana Protein [Mass/Vol] 6.8 g/dL Normal 6.4-8.2 [facility] Comment on above: Performed By: #### C VDTBH #### [facility] [address] [place] [address] Dr. David Magana Sodium [Moles/Vol] 129 mmol/L Critically low 136-145 [facility] Comment on above: Performed By: #### C VDTBH #### [facility] [address] [place] [address] Dr. David Magana Urea nitrogen [Mass/Vol] 65.0 mg/dL Critically high 7.0-18.0 [facility] Comment on above: Performed By: #### C VDTBH #### [facility] [address] [place] [address] Dr. David Magana Urea nitrogen/Creatinine [Mass ratio] 30.2 mg/mg Normal [facility] Comment on above: Performed By: #### C VDTBH #### [facility] [address] [place] [address] Dr. David Magana UA RANDOM W/MICROSCOPICon BACTERIA NONE SEEN Normal NONE SEEN [facility] Comment on above: Performed By: #### M Marcell, BMP, PHOS #### [facility] [address] [place] [address] Dr. David Magana Bilirubin Ql (U) Negative Normal NEGATIVE [facility] [place] Comment on above: Performed By: #### M G, BMP, PHOS #### [facility] [address] [place] [address] Dr. David Magana CAST NONE SEEN Normal NONE SEEN [facility] Comment on above: Performed By: #### M G, BMP, PHOS #### [facility] [address] [place] [address] Dr. David Magana Clarity (U) CLEAR Normal CLEAR [facility] Comment on above: Performed By: #### M G, BMP, PHOS #### [facility] [address] [address] [address] David Magana Color (U) LT. YELLOW Normal YELLOW [facility] Comment on above: Performed By: #### M G, BMP, PHOS #### [facility] [address] [address] [address] David Magana Crystals LM Nom (Urine sed) NONE SEEN Normal NONE SEEN [facility] Comment on above: Performed By: #### M G, BMP, PHOS #### [facility] [address] [address] [address] David Magana Epithelial cells LM Ql (Urine sed) RARE Normal NONE SEEN /RARE [facility] Comment on above: Performed By: #### M G, BMP, PHOS #### [facility] [address] [place] [address] Dr. David Magana Glucose Ql (U) 1000 mg/dl Abnormal NEGATIVE [facility] Comment on above: Performed By: #### M G, BMP, PHOS #### [facility] [address] [address] [address] David Magana Hemoglobin Ql (U) Negative Normal NEGATIVE [facility] Comment on above: Performed By: #### M G, BMP, PHOS #### [facility] [address] [place] [address] Dr. David Magana Ketones Ql (U) 15 mg/dl Abnormal NEGATIVE [facility] Comment on above: Performed By: #### M G, BMP, PHOS #### [facility] [address] [address] [address] David Magana LEUKOCYTES Negative Normal NEGATIVE [facility] Comment on above: Performed By: #### M G, BMP, PHOS #### [facility] [address] [place] [address] Dr. David Magana MUCOUS NONE SEEN Normal NONE SEEN [facility] Comment on above: Performed By: #### M G, BMP, PHOS #### [facility] [address] [place] [address] Dr. David Magana Nitrite Ql (U) Negative Normal NEGATIVE [facility] Comment on above: Performed By: #### ERICK Jacques, PHOS #### [facility] [address] [place] [address] Dr. David Magana pH (U) 5.5 [pH] Normal 5-9 [facility] Comment on above: Performed By: #### ERICK Jacques, PHOS #### [facility] [address] [place] [address] Dr. David Magana RBC NONE SEEN Abnormal 0-2 [facility] Comment on above: Performed By: #### M ERICK Faith, PHOS #### [facility] [address] [place] [address] Dr. David Magana SPEC GRAVITY <=1.005 Abnormal 1.005-<=1.025 [facility] Comment on above: Performed By: #### ERICK Jacques, PHOS #### [facility] [address] [place] [address] Dr. David Magana UA PROTEIN Negative Normal NEGATIVE/ TRACE [facility] Comment on above: Performed By: #### ERICK Jacques, PHOS #### [facility] [address] [place] [address] Dr. David Magana Urobilinogen Qn (U) 0.2 {Dionna'U}/dL Normal 0.2 - 1. 0 [facility] Comment on above: Performed By: #### ERICK Jacques, PHOS #### [facility] [address] [place] [address] Dr. David Magana WBC NONE SEEN Normal NONE SEEN [facility] Comment on above: Performed By: #### ERICK Jacques, PHOS #### [facility] [address] [place] [address] Dr. David Magana XR CHEST 1 Von [...] Yefri DWYER Date: 2022-07-18 00:09 Normal [facility] CARDIAC BARRIE ADMITon 022 CK [Catalytic activity/Vol] 61 U/L Normal 39-308 [facility] Comment on above: Performed By: #### C BC #### [facility] [address] [place] [address] Dr. Dvaid Magana CK.MB [Mass/Vol] 1.84 ng/mL Normal <=3.60 [facility] [place] Comment on above: Performed By: #### C BC #### [facility] [address] [place] [address] Dr. David Magana HSTROP 9.4 pg/mL Normal 4.0-76.1 [facility] Comment on above: Result Comment: CUT- OFF POINTS HAVE BEEN ESTABLISHED BASED ON THE FOURTH UNIVERSAL DEFINITIONS OF MYOCARDIAL INFARCTION. THE UPPER REFERENCE LIMIT (URL) OF TROPONIN, DEFINED THE 99TH PERCENTILE OF cTnI DISTRIBUTION IN A REFERENCE POPULATION, HAS BEEN CONFIRMED THE DECISION THRESHOLD FOR [place] DIAGNOSIS. Performed By: #### C BC #### [facility] [address] [place] [address] Dr. David Magana DUSTIN 533 ng/mL Critically high 16-[address] [facility] Comment on above: Performed By: #### C BC #### [facility] [address] [place] [address] Dr. David Magana CBC AUTO DIFFon 07-17-2022 BASO # 0.0 103/ul Normal 0.0-0.1 [facility] Comment on above: Performed By: #### ERICK Jacques PHOS #### [facility] [address] [place] [address] Dr. David Magana Basophils/100 WBC (Bld) 0.2 % Normal 0.2-2.0 [facility] Comment on above: Performed By: #### ERICK Jacques PHOS #### [facility] [address] [place], [place] [id number] Dr. David Magana EO # 0.0 103/ul Normal 0.0-0.7 [facility] Comment on above: Performed By: #### M ERICK Faith, PHOS #### [facility] [address] [place] [address] Dr. David Magana Eosinophils/100 WBC (Bld) 0.1 % Critically low 0.9-7.0 [facility] Comment on above: Performed By: #### M G, BMP, PHOS #### [facility] [address] [place] [address] Dr. David Magana Erythrocyte distribution width (RBC) [Ratio] 13.2 % Normal 11.0-15.0 [facility] Comment on above: Performed By: #### M ERICK Faith, PHOS #### [facility] [address] [place] [address] Dr. David Magana Hematocrit (Bld) [Volume fraction] 43.1 % Normal 42.0-54.0 [facility] Comment on above: Performed By: #### M Marcell BMP, PHOS #### [facility] [address] [place] [address] Dr. David Magana Hemoglobin (Bld) [Mass/Vol] 14.5 g/dL Normal 14.0-18.0 [facility] Comment on above: Performed By: #### M Marcell BMP, PHOS #### [facility] [address] [place] [address] Dr. David Magana IG # 0.14 10e3/ul Critically high 0.00-0.03 [facility] Comment on above: Performed By: #### M G, BMP, PHOS #### [facility] [address] [place] [address] Dr. David Magana IG % 1.2 % Critically high 0.0-0.[address] [facility] Comment on above: Performed By: #### M G, BMP, PHOS #### [facility] [address] [place] [address] Dr. David Magana LYMPH # 0.4 103/ul Critically low 1.2-3.8 [facility] Comment on above: Performed By: #### M ERICK Faith, PHOS #### [facility] [address] [place] [address] Dr. David Magana Lymphocytes/100 WBC (Bld) 3.4 % Critically low 20.5-60.0 [facility] Comment on above: Performed By: #### M Marcell BMP, PHOS #### [facility] [address] [place] [address] Dr. David Magana MANUAL DIFF REQ NO Normal [facility] Comment on above: Performed By: #### M Marcell, BMP, PHOS #### [facility] [address] [place] [address] Dr. David Magana MCH (RBC) [Entitic mass] 33.3 pg Normal 25.9-34.0 [facility] Comment on above: Performed By: #### ERICK Jacques, PHOS #### [facility] [address] [place] [address] Dr. David Magana MCHC (RBC) [Mass/Vol] 33.6 g/dL Normal 29.9-35.2 [facility] Comment on above: Performed By: #### ERICK Jacques, PHOS #### [facility] [address] [place] [address] Dr. David Magana MCV (RBC) [Entitic vol] 98.9 fL Critically high 80.0-94.0 [facility] Comment on above: Performed By: #### ERICK Jacques, PHOS #### [facility] [address] [place] [address] Dr. David Magana MONO # 1.1 103/ul Critically high 0.3-0.[address] [facility] Comment on above: Performed By: #### M ERICK Faith, PHOS #### [facility] [address] [place] [address] Dr. David Magana Monocytes/100 WBC (Bld) 8.9 % Normal 1.7-12.0 [facility] Comment on above: Performed By: #### ERICK Jacques, PHOS #### [facility] [address] [address] [address] David Magana NEUT # 10.3 103/ul Critically high 1.4-6.5 [facility] Comment on above: Performed By: #### M ERICK Faith, PHOS #### [facility] [address] [address] [address] David Magana Neutrophils/100 WBC (Bld) 86.2 % Critically high 43.0-75.0 [facility] Comment on above: Performed By: #### M Marcell, BMP, PHOS #### [facility] [address] [address] [address] David Magana Platelet mean volume (Bld) [Entitic vol] 11.1 fL Normal 9.5-13.5 [facility] Comment on above: Performed By: #### M ERICK Faith, PHOS #### [facility] [address] [place] [address] Dr. David Magana PLT 229 103/ul Normal 150-450 [facility] Comment on above: Performed By: #### ERICK Jacques, PHOS #### [facility] [address] [address] [address] David Magana RBC 4.36 106/ul Critically low 4.70-6.10 [facility] Comment on above: Performed By: #### M ERICK Faith, PHOS #### [facility] [address] [address] [address] David Magana WBC 11.9 103/ul Critically high 4.0-11.0 [facility] [place] Comment on above: Performed By: #### M ERICK Faith, PHOS #### [facility] [address] [place] [address] Dr. David Magana PROF CHEM 8 (BAS METB)on Anion gap [Moles/Vol] 26.5 mmol/L Normal [facility] Comment on above: Performed By: #### C BC #### [facility] [address] [address] [address] David Magana Calcium [Mass/Vol] 8.2 mg/dL Critically low 8.5-10.1 [facility] Comment on above: Performed By: #### C BC #### [facility] [address] [address] [address] David Magana Chloride [Moles/Vol] 89 mmol/L Critically low 98-107 [facility] Comment on above: Performed By: #### C BC #### [facility] [address] [address] [address] David Magana CO2 [Moles/Vol] 14.5 mmol/L Critically low 21.0-32.0 [facility] Comment on above: Performed By: #### C BC #### [facility] [address] [address] [address] David Magana Creatinine [Mass/Vol] 2.78 mg/dL Critically high 0.70-1.30 [facility] Comment on above: Performed By: #### C BC #### [facility] [address] [address] [address] David Magana EGFR-AF [place]IZ[place] 27 mL/min/1.73m2 Critically low >=60 [facility] Comment on above: Performed By: #### C BC #### [facility] [address] [place] [address] Dr. David Magana EGFR-NON AF CITIZEN [place] 22 mL/min/1.73m2 Critically low >=60 [facility] Comment on above: Performed By: #### C BC #### [facility] [address] [address] [address] David Magana Glucose [Mass/Vol] 442 mg/dL Critically high 74-106 [facility] Comment on above: Performed By: #### C BC #### [facility] [address] [address] [address] David Magana Potassium [Moles/Vol] 6.0 mmol/L Critically high 3.5-5.1 [facility] Comment on above: Performed By: #### C BC #### [facility] [address] [address] [address] David Magana Sodium [Moles/Vol] 124 mmol/L Critically low 136-145 [facility] Comment on above: Performed By: #### C BC #### [facility] [address] [place], [place] [address] Dr. David Magana Urea nitrogen [Mass/Vol] 73.0 mg/dL Critically high 7.0-18.0 [facility] Comment on above: Performed By: #### C BC #### [facility] [address] [place], [place] [address] Dr. David Magana Urea nitrogen/Creatinine [Mass ratio] 26.3 mg/mg Normal [facility] Comment on above: Performed By: #### C BC #### [facility] [address] [place], [place] [address] Dr. David Magana Covid-19 PCR ([facility])on 06-16 SARS-CoV-2 (COVID-19) RNA SULTANA+probe Ql (Unsp spec) Detected Critically abnormal NOT DETECTED [facility] Comment on above: Result Comment: This test is not yet approved or cleared by the [place] FDA. When there are no FDA-approved or cleared tests available, and other criteria are met, FDA can make tests available under an emergency access mechanism called an Emergency Use Authorization (EUA). The EUA for this test is supported by the Personal Consultant of Health and Human Service's (HHS's) declaration [...] By: #### M G, BMP, PHOS #### [facility] [id number] David Magana ECHOCARDIO M/2D COMPLETEon 0 07-01-2022 ECHOCARDIO M/2D COMPLETE Patient: NADIR HEREDIA Exam Date: 07/01/2022 : 1940 Gender:M Ordering : DR CLARIBEL PUGA M.D. Admission #: [id number] Family : VAN SUNG . Order #: [id number] CLICK HERE TO VIEW EXAM ECHOCARDIOGRAM REPORT [...] M.D. on 07/01/2022 at 16:27 Normal [facility]on SARS-CoV-2 (COVID-19) RNA SULTANA+probe Ql (Unsp spec) Not detected Normal NOT DETECTED [facility] Comment on above: Result Comment: When [...] for this test is supported by the [place] of Health and Human Service's declaration that [...] used). Performed By: #### C VDTB #### [facility] [address] [place] [address] Dr. David Magana CREATININE URINEon 2 URINE CREAT 14.70 mg/dL Critically low 20.00-300.00 [facility] Comment on above: Performed By: #### ERICK Jacques, PHOS #### [facility] [address] [place] [address] Dr. David Magana GLYCOHEMOGLOBIN A1Con 2021 ADA RECOMMENDATION SEE BELOW Normal [facility] Comment on above: Result Comment: ADA RECOMMENDED LIMIT 4.0 - 6.0 ADA THERAPEUTIC TARGET < 7.0 ACTION SUGGESTED > 7.0 Performed By: #### A 1C #### [facility] [address] [place] [address] Dr. David Magana Glucose [Mass/Vol] 209 mg/dL Normal [facility] Comment on above: Performed By: #### A 1C #### [facility] [address] [place] [address] Dr. David Magana HbA1c (Bld) [Mass fraction] 8.9 % Critically high 4.5-6.2 [facility] Comment on above: Performed By: #### A 1C #### [facility] [address] [place] [address] Dr. David Magana MAGNESIUMon 06-08-2022 Magnesium [Mass/Vol] 2.3 mg/dL Normal 1.8-2.4 [facility] Comment on above: Performed By: #### ERICK Jacques, PHOS #### [facility] [address] [place] [address] Dr. David Magana PHOSPHORUSon 06-08-2022 Phosphate [Mass/Vol] 3.5 mg/dL Normal 2.6-4.7 [facility] Comment on above: Performed By: #### ERICK Jacques, PHOS #### [facility] [address] [place] [address] Dr. David Magana PROF CHEM 8 (BAS METB)on Anion gap [Moles/Vol] 10.6 mmol/L Normal [facility] Comment on above: Performed By: #### M G, BMP, PHOS #### [facility] [address] [place] [address] Dr. David Magana Calcium [Mass/Vol] 9.2 mg/dL Normal 8.5-10.1 [facility] Comment on above: Performed By: #### M G, BMP, PHOS #### [facility] [address] [place] [address] Dr. David Magana Chloride [Moles/Vol] 102 mmol/L Normal 98-107 [facility] Comment on above: Performed By: #### M G, BMP, PHOS #### [facility] [address] [place] [address] Dr. David Magana CO2 [Moles/Vol] 30.1 mmol/L Normal 21.0-32.0 [facility] Comment on above: Performed By: #### M G, BMP, PHOS #### [facility] [address] [place] [address] Dr. David Magana Creatinine [Mass/Vol] 1.70 mg/dL Critically high 0.70-1.30 [facility] Comment on above: Performed By: #### M G, BMP, PHOS #### [facility] [address] [place] [address] Dr. David Magana EGFR-AF [place]IZ[place] 47 mL/min/1.73m2 Critically low >=60 [facility] Comment on above: Performed By: #### M G, BMP, PHOS #### [facility] [address] [place] [address] Dr. David Magana EGFR-NON AF CITIZ[place] 39 mL/min/1.73m2 Critically low >=60 [facility] Comment on above: Performed By: #### M G, BMP, PHOS #### [facility] [address] [place] [address] Dr. David Magana Glucose [Mass/Vol] 197 mg/dL Critically high 74-106 [facility] Comment on above: Performed By: #### ERICK Jacques, PHOS #### [facility] [address] [place] [address] Dr. David Magana Potassium [Moles/Vol] 4.7 mmol/L Normal 3.5-5.1 [facility] Comment on above: Performed By: #### ERICK Jacques, PHOS #### [facility] [address] [address] [address] David Magana Sodium [Moles/Vol] 138 mmol/L Normal 136-145 [facility] Comment on above: Performed By: #### ERICK Jacques, PHOS #### [facility] [address] [place] [address] Dr. David Magana Urea nitrogen [Mass/Vol] 25.0 mg/dL Critically high 7.0-18.0 [facility] Comment on above: Performed By: #### ERICK Jacques, PHOS #### [facility] [address] [place] [address] Dr. David Magana Urea nitrogen/Creatinine [Mass ratio] 14.7 mg/mg Normal [facility] Comment on above: Performed By: #### ERICK Jacques, PHOS #### [facility] [address] [place] [address] Dr. David Magana PROTEIN RAND URINEon 022 UR PROT <5.0 Normal <=11.9 [facility] Comment on above: Performed By: #### C REAU, PROTU #### [facility] [address] [place] [address] Dr. David Magana BILIRUBIN CONJUGATED (DIRECT )on 04-28-2022 BILI, CONJUGATED 0.1 mg/dL Normal 0.0-0.2 [facility] Comment on above: Performed By: #### P OCGLUC #### [facility] [address] [place] [address] Dr. David Magana CBC AUTO DIFFon 04-28-2022 BASO # 0.1 103/ul Normal 0.0-0.1 [facility] Comment on above: Performed By: #### C VDTBH #### [facility] [address] [place] [address] Dr. David Magana Basophils/100 WBC (Bld) 0.7 % Normal 0.2-2.0 [facility] Comment on above: Performed By: #### C VDTBH #### [facility] [address] [place] [address] Dr. David Magana EO # 0.5 103/ul Normal 0.0-0.7 [facility] Comment on above: Performed By: #### C VDTBH #### [facility] [address] [place] [address] Dr. David Magana Eosinophils/100 WBC (Bld) 6.7 % Normal 0.9-7.0 [facility] Comment on above: Performed By: #### C VDTBH #### [facility] [address] [place] [address] Dr. David Magana Erythrocyte distribution width (RBC) [Ratio] 13.6 % Normal 11.0-15.0 [facility] Comment on above: Performed By: #### C VDTBH #### [facility] [address] [place] [address] Dr. David Magana Hematocrit (Bld) [Volume fraction] 45.9 % Normal 42.0-54.0 [facility] Comment on above: Performed By: #### C VDTBH #### [facility] [address] [place] [address] Dr. David Magana Hemoglobin (Bld) [Mass/Vol] 14.9 g/dL Normal 14.0-18.0 [facility] Comment on above: Performed By: #### C VDTBH #### [facility] [address] [place] [address] Dr. David Magana IG # 0.03 10e3/ul Normal 0.00-0.03 [facility] Comment on above: Performed By: #### C VDTBH #### [facility] [address] [place] [address] Dr. David Magana IG % 0.4 % Normal 0.0-0.5 [facility] Comment on above: Performed By: #### C VDTBH #### [facility] [address] [place] [address] Dr. David Magana LYMPH # 1.0 103/ul Critically low 1.2-3.8 [facility] Comment on above: Performed By: #### C VDTBH #### [facility] [address] [place] [address] Dr. David Magana Lymphocytes/100 WBC (Bld) 13.4 % Critically low 20.5-60.0 [facility] Comment on above: Performed By: #### C VDTBH #### [facility] [address] [place] [address] Dr. David Magana MANUAL DIFF REQ NO Normal [facility] Comment on above: Performed By: #### C VDTBH #### [facility] [address] [place] [address] Dr. David Magana MCH (RBC) [Entitic mass] 33.8 pg Normal 25.9-34.0 [facility] Comment on above: Performed By: #### C VDTBH #### [facility] [address] [place] [address] Dr. David Magana MCHC (RBC) [Mass/Vol] 32.5 g/dL Normal 29.9-35.2 [facility] Comment on above: Performed By: #### C VDTBH #### [facility] [address] [place] [address] Dr. David Magana MCV (RBC) [Entitic vol] 104.1 fL Critically high 80.0-94.0 [facility] Comment on above: Performed By: #### C VDTBH #### [facility] [address] [place] [address] Dr. David Magana MONO # 0.8 103/ul Normal 0.3-0.8 [facility] Comment on above: Performed By: #### C VDTBH #### [facility] [address] [place] [address] Dr. David Magana Monocytes/100 WBC (Bld) 10.2 % Normal 1.7-12.0 [facility] Comment on above: Performed By: #### C VDTBH #### [facility] [address] [place] [address] Dr. David Magana NEUT # 5.1 103/ul Normal 1.4-6.5 [facility] Comment on above: Performed By: #### C VDTBH #### [facility] [address] [place] [address] Dr. David Magana Neutrophils/100 WBC (Bld) 68.6 % Normal 43.0-75.0 [facility] Comment on above: Performed By: #### C VDTBH #### [facility] [address] [place] [address] Dr. David Magana Platelet mean volume (Bld) [Entitic vol] 11.3 fL Normal 9.5-13.5 [facility] Comment on above: Performed By: #### C VDTBH #### [facility] [address] [place] [address] Dr. David Magana PLT 185 103/ul Normal 150-450 [facility] Comment on above: Performed By: #### C VDTBH #### [facility] [address] [place] [address] Dr. David Magana RBC 4.41 106/ul Critically low 4.70-6.[address] [facility] Comment on above: Performed By: #### C VDTBH #### [facility] [address] [place] [address] Dr. David Magana WBC 7.5 103/ul Normal 4.0-11.0 [facility] Comment on above: Performed By: #### C VDTBH #### [facility] [address] [place] [address] Dr. David Magana FREE T3on 04-28-2022 FREE T3 2.17 pg/mlL Critically low 2.18-3.98 [facility] Comment on above: Performed By: #### P OCGLUC #### [facility] [address] [place] [address] Dr. David Magana LIPID PROFILEon 04-28-2022 CHOL-HDL RATIO NORM SEE BELOW Normal [facility] Comment on above: Result Comment: 3.3 - 4.4 LOW RISK 4.4 - 7.1 AVERAGE RISK 7.1 - 11.0 MODERATE RISK >11.0 HIGH RISK Performed By: #### P OCGLUC #### [facility] [address] [address] [address] David Magana Cholesterol [Mass/Vol] 234 mg/dL Critically high <=200 [facility] Comment on above: Performed By: #### P OCGLUC #### [facility] [address] [address] [address] David Magana Cholesterol in HDL [Mass/Vol] 58 mg/dL Normal 40-60 [facility] Comment on above: Performed By: #### P OCGLUC #### [facility] [address] [address] [address] David Magana Cholesterol in LDL [Mass/Vol] 129.0 mg/dL Normal [facility] Comment on above: Performed By: #### P OCGLUC #### [facility] [address] [address] [address] David Magana Cholesterol.total/Cho lesterol in HDL [Mass ratio] 4.0 {ratio} Normal [facility] Comment on above: Performed By: #### P OCGLUC #### [facility] [address] [address] [address] David Magana HDL NORMAL > or = 60 mg/dl - LOW CARDIOVASCULAR RISK <40 mg/dl - HIGH CARDIOVASCULAR RISK Normal [facility] Comment on above: Performed By: #### P OCGLUC #### [facility] [address] [address] [address] David Magana LDL CALC NORMAL SEE BELOW Normal [facility] Comment on above: Result Comment: <100 mg/dl OPTIMAL 100 - 129 mg/dl NEAR OR ABOVE OPTIMAL 130 - 159 mg/dl BORDERLINE HIGH 160 - 189 mg/dl HIGH >190 mg/dl VERY HIGH Performed By: #### P OCGLUC #### [facility] [address] [address] [address] David Magana Triglyceride [Mass/Vol] 235 mg/dL Critically high <=150 [facility] Comment on above: Performed By: #### P OCGLUC #### [facility] [address] [place] [address] Dr. David Magana VLDL CALC 47.0 mg/dL Normal [facility] Comment on above: Performed By: #### P OCGLUC #### [facility] [address] [place] [address] Dr. David Magana PROF 14(COMP METB)on 022 Albumin [Mass/Vol] 3.2 g/dL Critically low 3.4-5.0 [facility] Comment on above: Performed By: #### P OCGLUC #### [facility] [address] [place] [address] Dr. David Magana Albumin/Globulin [Mass ratio] 0.9 {ratio} Normal [facility] Comment on above: Performed By: #### P OCGLUC #### [facility] [address] [place] [address] Dr. David Magana ALP [Catalytic activity/Vol] 77 U/L Normal 46-116 [facility] Comment on above: Performed By: #### P OCGLUC #### [facility] [address] [place] [address] Dr. David Magana ALT [Catalytic activity/Vol] 24 U/L Normal 16-63 [facility] Comment on above: Performed By: #### P OCGLUC #### [facility] [address] [place] [address] Dr. David Magana Anion gap [Moles/Vol] 13.1 mmol/L Normal [facility] Comment on above: Performed By: #### P OCGLUC #### [facility] [address] [place] [address] Dr. David Magana AST [Catalytic activity/Vol] 13 U/L Critically low 15-37 [facility] Comment on above: Performed By: #### P OCGLUC #### [facility] [address] [place] [address] Dr. David Magana Bilirubin [Mass/Vol] 0.3 mg/dL Normal 0.2-1.0 [facility] Comment on above: Performed By: #### P OCGLUC #### [facility] [address] [address] [address] David Magana Calcium [Mass/Vol] 8.8 mg/dL Normal 8.5-10.1 [facility] Comment on above: Performed By: #### P OCGLUC #### [facility] [address] [address] [address] David Magana Chloride [Moles/Vol] 106 mmol/L Normal 98-107 [facility] Comment on above: Performed By: #### P OCGLUC #### [facility] [address] [place] [address] Dr. David Magana CO2 [Moles/Vol] 27.5 mmol/L Normal 21.0-32.0 [facility] Comment on above: Performed By: #### P OCGLUC #### [facility] [address] [address] [address] David Magana Creatinine [Mass/Vol] 1.62 mg/dL Critically high 0.70-1.30 [facility] Comment on above: Performed By: #### P OCGLUC #### [facility] [address] [place] [address] Dr. David Magana EGFR-AF [place] 50 mL/min/1.73m2 Critically low >=60 [facility] Comment on above: Performed By: #### P OCGLUC #### [facility] [address] [address] [address] David Magana EGFR-NON AF [place]IZ[place] 41 mL/min/1.73m2 Critically low >=60 [facility] Comment on above: Performed By: #### P OCGLUC #### [facility] [address] [place] [address] Dr. David Magana Globulin (S) [Mass/Vol] 3.4 g/dL Normal [facility] Comment on above: Performed By: #### P OCGLUC #### [facility] [address] [place] [address] Dr. David Magana Glucose [Mass/Vol] 206 mg/dL Critically high 74-106 [facility] Comment on above: Performed By: #### P OCGLUC #### [facility] [address] [address] [address] David Magana Potassium [Moles/Vol] 4.6 mmol/L Normal 3.5-5.1 [facility] Comment on above: Performed By: #### P OCGLUC #### [facility] Laboratory [address] [address] [address] David Magana Protein [Mass/Vol] 6.6 g/dL Normal 6.4-8.2 [facility] Comment on above: Performed By: #### P OCGLUC #### [facility] [address] [address] [address] David Magana Sodium [Moles/Vol] 142 mmol/L Normal 136-145 [facility] Comment on above: Performed By: #### P OCGLUC #### [facility] [address] [address] [address] David Magana Urea nitrogen [Mass/Vol] 26.0 mg/dL Critically high 7.0-18.0 [facility] Comment on above: Performed By: #### P OCGLUC #### [facility] [address] [address] [address] David Magana Urea nitrogen/Creatinine [Mass ratio] 16.0 mg/mg Normal [facility] Comment on above: Performed By: #### P OCGLUC #### [facility] [address] [address] [address] David Magana T4on 04-28-2022 T4 [Mass/Vol] 7.70 ug/dL Normal 4.50-12.10 [facility] Comment on above: Performed By: #### P OCGLUC #### [facility] [address] [place] [address] Dr. David Magana TSHon 04-28-2022 TSH 2.187 uIU/mL Normal 0.358-3.740 [facility] Comment on above: Performed By: #### P OCGLUC #### [facility] [address] [address] [address] David Magana TSH RANGE SEE BELOW Normal [facility] Comment on above: Result Comment: <0.3 4 UIU/ml HYPERTHYROID 0.34-5.60 UIU/ml EUTHYROID >5.60 UIU/ml HYPOTHYROID Performed By: #### P OCGLUC #### [facility] [id number] David Magana Vital Signs Date Time Vital Sign Value Performing Clinician Facility 10-14-2023 14:33-0500 Diastolic blood pressure 70 mm[Hg] Nereydabruce JoyaPatricia [facility] 10-14-2023 14:33-0500 Mean blood pressure 93 mm[Hg] Nereyda Patricia [facility] 10-14-2023 14:33-0500 Systolic blood pressure 138 mm[Hg] Nereyda Patricia [facility] 10-14-2023 14:18-0500 Blood Pressure Location Nereyda Patricia [facility] 10-14-2023 14:18-0500 Body temperature 97.88 [degF] Nereyda Patricia [facility] 10-14-2023 14:18-0500 Diastolic blood pressure 73 mm[Hg] Nereyda Patricia [facility] 10-14-2023 14:18-0500 Heart rate 91 /min Nereyda Patricia [facility] 10-14-2023 14:18-0500 Systolic blood pressure 143 mm[Hg] Nereyda Patricia [facility] 10-01-2023 12:13-0500 Diastolic blood pressure 66 mm[Hg] Nereyda Patricia [facility] 10-01-2023 12:13-0500 Mean blood pressure 104 mm[Hg] Nereyda Patricia [facility] 10-01-2023 12:13-0500 Systolic blood pressure 179 mm[Hg] Nereyda Patricia [facility] 10-01-2023 12:10-0500 Blood Pressure Location Nereyda Patricia [facility] 10-01-2023 12:10-0500 Body temperature 98.42 [degF] Nereyda Patricia [facility] 10-01-2023 12:10-0500 Diastolic blood pressure 77 mm[Hg] Nereyda Patricia [facility] 10-01-2023 12:10-0500 Heart rate 81 /min Nereyda Patricia [facility] 10-01-2023 12:10-0500 Respiratory rate 14 /min Nereyda Patricia [facility] 10-01-2023 12:10-0500 Systolic blood pressure 168 mm[Hg] Nereyda Patricia [facility] 06-10-2023 10:43-0400 Diastolic blood pressure 64 mm[Hg] Nereyda Patricia [facility] 06-10-2023 10:43-0400 Heart rate 76 /min Nereyda Patricia [facility] 06-10-2023 10:43-0400 Respiratory rate 16 /min Nereyda Patricia [facility] 06-10-2023 10:43-0400 SaO2% (BldA) [Mass fraction] 95 % Nereyda Patricia [facility] 06-10-2023 10:43-0400 Systolic blood pressure 121 mm[Hg] Nereyda Patricia [facility] 04-13-2023 14:19-0400 Diastolic blood pressure 70 mm[Hg] Nereyda Patricia [facility] 04-13-2023 14:19-0400 Mean blood pressure 95 mm[Hg] Nereyda Patricia [facility] 04-13-2023 14:19-0400 Systolic blood pressure 146 mm[Hg] Nereyda Patricia [facility] 04-13-2023 14:15-0400 Blood Pressure Location Nereyda Patricia [facility] 04-13-2023 14:15-0400 Body temperature 97.7 [degF] Nereyda Patricia [facility] 04-13-2023 14:15-0400 Diastolic blood pressure 87 mm[Hg] Nereyda Patricia [facility] 04-13-2023 14:15-0400 Heart rate 70 /min Nereyda Patricia [facility] 04-13-2023 14:15-0400 Systolic blood pressure 150 mm[Hg] Nereyda Patricia [facility] 06-09-2022 10:02-0400 Body temperature 96.98 [degF] Nereyda Patricia [facility] 06-09-2022 10:02-0400 Diastolic blood pressure 75 mm[Hg] Nereyda Patricia [facility] 06-09-2022 10:02-0400 Heart rate 72 /min Nereydabruce Donatoz [facility] 06-09-2022 10:02-0400 SaO2% (BldA) [Mass fraction] 97 % Nereydabruce Donatoz [facility] 06-09-2022 10:02-0400 Systolic blood pressure 139 mm[Hg] Nereyda Donatoz [facility] 05-11-2022 11:30-0400 Diastolic blood pressure 102 mm[Hg] Bender SALAM [facility] 05-11-2022 11:30-0400 Heart rate 86 /min Bender SALAM [facility] 05-11-2022 11:30-0400 Respiratory rate 15 /min Bender SALAM [facility] 05-11-2022 11:30-0400 SaO2% (BldA) [Mass fraction] 95 % Bender SALAM [facility] 05-11-2022 11:30-0400 Systolic blood pressure 172 mm[Hg] Bender SALAM [facility] 05-11-2022 11:15-0400 Diastolic blood pressure 88 mm[Hg] Bender SALAM [facility] 05-11-2022 11:15-0400 Heart rate 86 /min Bender SALAM [facility] 05-11-2022 11:15-0400 Respiratory rate 18 /min Bender SALAM [facility] 05-11-2022 11:15-0400 SaO2% (BldA) [Mass fraction] 97 % Bender SALAM [facility] 05-11-2022 11:15-0400 Systolic blood pressure 170 mm[Hg] Bender SALAM [facility] 05-11-2022 11:10-0400 Diastolic blood pressure 108 mm[Hg] Bender SALAM [facility] 05-11-2022 11:10-0400 Heart rate 85 /min Bender SALAM [facility] 05-11-2022 11:10-0400 Respiratory rate 14 /min Bender SALAM [facility] 05-11-2022 11:10-0400 SaO2% (BldA) [Mass fraction] 97 % Bender SALAM [facility] 05-11-2022 11:10-0400 Systolic blood pressure 157 mm[Hg] Bender SALAM [facility] 05-11-2022 11:02-0400 Body temperature 97.34 [degF] Bender SALAM [facility] 05-11-2022 10:27-0400 Blood Pressure Location Bender SALAM [facility] 05-11-2022 10:23-0400 Blood Pressure Location Bender SALAM [facility] 05-11-2022 10:23-0400 Body temperature 98.24 [degF] Bender SALAM [facility] 03-31-2022 09:53-0400 Blood Pressure Location Nereyda Gomez [facility] 03-31-2022 09:53-0400 Body temperature 97.7 [degF] Nereyda Gomez [facility] 03-31-2022 09:53-0400 Diastolic blood pressure 72 mm[Hg] Nereyda Gomez [facility] 03-31-2022 09:53-0400 Heart rate 73 /min Nereyda Gomez [facility] 03-31-2022 09:53-0400 SaO2% (BldA) [Mass fraction] 96 % Nereyda Gomez [facility] 03-31-2022 09:53-0400 Systolic blood pressure 129 mm[Hg] Nereyda Gomez [facility] Encounters Encounter Date Encounter Type Care Provider Facility Start: 03-03-2024 End: 03-03-2024 ambulatory [facility] Start: 02-10-2024 End: 02-10-2024 ambulatory ROBINSON CHICAS Not Available Start: 02-02-2024 ambulatory Nereyda Castellanosi ty:Uri Start: 01-11-2024 End: 01-11-2024 ambulatory BARRIE BRASWELL Not Available Start: 12-09-2023 ambulatory Nereyda Castellanosi ty:Uri Start: 12-02-2023 End: 12-02-2023 ambulatory ROBINSON CHICAS Not Available Start: 11-17-2023 End: 11-17-2023 ambulatory DANA [facility] Start: 10-14-2023 End: 10-15-2023 ambulatory Nereyda Gomez Facility:[facility] Start: 10-14-2023 End: 10-14-2023 Patient encounter procedure Nereyda A Patricia [facility] Start: 10-01-2023 End: 10-02-2023 ambulatory Nereyda A Patricia [place] [place]: 10-01-2023 End: 10-02-2023 ambulatory Nereyda A Patricia [facility] Start: 10-01-2023 End: 10-01-2023 Patient encounter procedure Neryeda A Patricia [facility] Start: 10-01-2023 End: 10-01-2023 Patient encounter procedure Nereyda A Patricia [facility] Start: 09-17-2023 End: 09-17-2023 ambulatory [facility] Start: 09-13-2023 End: 09-14-2023 ambulatory Nereyda A Patricia Facility:[facility] Start: 09-13-2023 End: 09-13-2023 Patient encounter procedure Nereyda A Aptricia [facility] Start: 08-31-2023 End: 09-01-2023 ambulatory [facility] Start: 07-21-2023 End: 07-21-2023 ambulatory [facility] Start: 06-14-2023 End: 06-14-2023 ambulatory [facility] Start: 06-10-2023 End: 06-11-2023 ambulatory Nereyda A Patricia Facility:[facility] Start: 06-10-2023 End: 06-10-2023 Patient encounter procedure Nereyda A Patricia [facility] Start: 05-24-2023 End: 05-24-2023 ambulatory CLARIBEL CLAUDIOFABRIZIO [facility] Start: 04-15-2023 End: 04-16-2023 ambulatory Nereyda Gomez [place] [place] Start: 04-15-2023 End: 04-15-2023 Lab Drop off Nereyda Gomez [facility] Start: 04-13-2023 End: 04-14-2023 ambulatory Nereyda Gomez [place] [place] Start: 04-13-2023 End: 04-13-2023 Patient encounter procedure Nereyda Gomez [facility] Start: 04-07-2023 End: 04-07-2023 ambulatory RUTHIE LINDA [facility] Start: 03-24-2023 End: 03-25-[address] [...] End: 06-09-2022 Patient encounter procedure Nereyda Gomez [facility] Start: 06-08-2022 End: 06-09-2022 ambulatory GAMALIEL DALEY Facility:[facility] Start: 05-11-2022 End: 05-11-2022 Patient encounter procedure Napoleon MENDEZ [facility] Start: 04-28-2022 End: 04-29-[address] VAN SUNG . Facility:[facility] Start: 03-31-2022 End: 03-31-2022 Patient encounter procedure Nereyda Gomez [facility] Start: 2019 End: 02-07-2019 Patient encounter procedure DEFAULT PHYSICIAN Facility:[facility] Procedures Date Procedure Procedure Detail Performing Clinician Start: 05-11-2022 Colonoscopy Bender SEBASTIAN Fernandez Comment on above: 2 polyps, diveticulo sis, IH Start: 01-11-2017 Cardioversion Nereyda Rian nmetz Back structure, excl uding neck (body structure) Nereyda Gomez Cholecystectomy Nereyda Funk ceasar Colonoscopy Nereyda Gomez History of hernia repair Ave bruce Gomez Tonsillectomy Nereyda Gomez Immunizations Immunization Date Immunization Notes Care Provider Fa cility 10-21-2022 SARS-CoV-2 (COVID-19 ) [id number] Nereyda Donatoz [facility] Comment on above: Result Comment: 2022: [id number] 08-26-2021 SARS-CoV-2 (COVID-19 ) mRNA BNT-162b2 vax Nereyda Donatoz [facility] 01-01-2021 SARS-CoV-2 (COVID-19 ) mRNA BNT-162b2 vax Nereyda Gomez [facility] 12-09-2020 SARS-CoV-2 (COVID-19 ) mRNA BNT-162b2 vax Nereyda Gomez [facility] 08-27-2020 influenza virus vaccine, unspecified formulation Nereyda Joyametz [facility] 08-16-2017 pneumococcal conjugate vaccine, 13 valent Nereyda Gomez [facility] 08-05-2017 influenza, unspecified formulation Nereyda Gomez [facility] 09-20-2015 zoster vaccine, live [facility] NEGATED: Highlighted row has not occurred!10-13-2023 influenza virus vaccine, unspecified formulation Nereyda Gomez [facility] NEGATED: Highlighted row has not occurred!09-29-2023 influenza virus vaccine, unspecified formulation Nereyda Gomez [facility] Payers Date Payer Category Payer Unknown [id number] 1960 Medicare [id number] 1940 Unknown [id number] 2.16.8 [id number] 1939 Unknown [id number] 2.16.84 0.1.687299.3.579.2.593 1939 Unknown [id number] 2.16.84 0.1.002920.3.579.2.593 1939 Unknown [id number] 2.16.84 0.1.610980.3.579.2.593 1939 Unknown [id number] 2.16.84 0.1.763524.3.579.2.593 1939 Unknown [id number] 2.16.84 0.1.523064.3.579.2.593 1939 Unknown [id number] 2.16.84 0.1.431674.3.579.2.593 1939 Unknown [id number] 2.16.84 0.1.368657.3.579.2.593 1939 Unknown [id number] 2.16.84 0.1.004237.3.579.2.593 1939 Unknown [id number] 2.16.84 0.1.935884.3.579.2.593 1939 Unknown [id number] 2.16.84 0.1.775074.3.579.2.593 1939 Unknown [id number] 2.16.84 0.1.659476.3.579.2.593 1939 Unknown [id number] 2.16.8 40.1.718398.3.579.2.727 1939 Unknown [id number] 2.16.8 40.1.072488.3.579.2.727 1939 Unknown [id number] 2.16.8 40.1.452000.3.579.2.727 1939 Unknown [id number] 2.16.8 40.1.200364.3.579.2.727 1939 Unknown [id number] 2.16.8 40.1.014715.3.579.2.727 1939 Unknown [id number] 2.16.8 40.1.260056.3.579.2.727 1939 Unknown [id number] 2.16.8 40.1.039762.3.579.2.727 1939 Unknown [id number] 2.16.8 40.1.551298.3.579.2.727 1939 Unknown [id number] 2.16.8 40.1.953021.3.579.2.727 1939 Unknown [id number] 2.16.8 40.1.649070.3.579.2.727 1939 Unknown [id number] 2.16.8 40.1.976057.3.579.2.727 1939 Unknown [id number] 2.16.84 0.1.160219.3.579.2.1259 1939 Unknown [id number] 2.16.84 0.1.646040.3.579.2.1259 1939 Unknown [id number] 2.16.84 0.1.479893.3.579.2.1259 Unknown Social History Date Type Detail Facility Start: 03-31-2022 End: 10-14-2023 Tobacco smoking status Ex-smoker (finding) [facility] Tobacco smoking status Never [facility] Sex Assigned At Male [facility] Functional Status Date Assessment Result Facility 10-14-2023 Functional Status N/A [facility] 10-01-2023 Functional Status No [facility] 04-13-2023 Functional Status N/A [facility] 06-09-2022 Functional Status N/A [facility] 05-11-2022 Functional Status N/A [facility] Clinical Notes 03-31-2022 to 03-03-2024 Note Date & Type Note Facility 03-03-2024 Note [facility] Subjective Nadir Heredia is a 84 [...] extremity edema. He was admitted to the [facility] in August 2022 due to hyponatremia, hyperkalemia and acute kidney injury, leukocytosis secondary to COVID-19 causing dehydration. I saw him on 05/24/2023 and the office and he had significant evidence of volume overload by exam and echocardiogram. I intensified his diuretic regimen. He ended up getting admitted to the [facility] with acute heart failure exacerbation and [...] Musculoskeletal: General: N (more content not included)... [facility] 11-17-2023 Note Attestation signed by Ruthie Linda MD at 11/21/2023 6:55 PM I saw, interviewed, examined and evaluated the patient with Nephrology fellow, Dr. Dana Aparicio. I participated in the medical management of the patient. I reviewed the fellow's note and agree with the fellow's documentation in the note. Ruthie Linda MD Faculty, Division of Nephrology, Department of Medicine, [facility]. [facility] Patient: Nadir Heredia; 83 y.o. Visit date: 11/17/23 Reason for today's visit: Follow up for CKD stage 3, Hypertension, Edema/ Fluid overload, and Electrolytes disturbances SUBJECTIVE: BACKGROUND: Nadir Heredia is a 83 y.o. male has a past medical history of Atrial fibrillation ([facility]), CHF (congestive heart failure) ([facility]), Chronic kidney disease, COPD (chronic obstructive pulmonary disease) ([facility]), Coronary artery disease, Diabetes mellitus ([facility]), Heart valve disease, Hypertension, Pericardial effusion, and Sleep apnea. History of paroxysmal atrial fibrillation maintained on anticoagulation with Eliquis, aortic stenosis, renal artery stenosis, and hypertension. He had stenting of the left renal artery from the left radial approach on 05/01/2015 (Express SD 6 mm x 18 mm stent). He was admitted to the [facility] in August 2022 due to hyponatremia, [...] place, and time (more content not included)... [facility] 10-14-2023 Hospital Discharge instructions Patient Education [...] as fried or sweet foods. These include greenlandic fries, hamburgers, cookies, candies, and soda. Drink enough fluid to keep your urine pale yellow. General instructions Exercise regularly or as told by your health care provider. Try to do 150 minutes of moderate exercise each week. Use the bathroom when you have the urge to go. Do not hold it in. Take rxle-dtw-uhvoaug and prescription medicines only as told by [...] to keep your urine pale yellow. Take pzdf-kef-mrcrtkj and prescription medicines only as told by your health care provider. This includes any fiber supplements. This information is not intended to replace advice given to you by your health care provider. Make sure you discuss any questions you have with your health care provider. Document Revised: 09/18/2020 Document Reviewed: 09/18/2020 [employer] Patient Education 2022 [employer]. Follow Up Care 10/01/2023 12:57:46 With:Nereyda Gomez CNP Address: When:1 month [facility] 10-01-2023 Hospital Discharge instructions [...] Bulgur wheat. Millet. Quinoa. Bran muffins. Popcorn. [place] wafer crackers. Meats and other proteins Mcbride beans, kidney beans, and mendez beans. Soybeans. [...] Cream cheese. Sour cream. Fats and oils [place]. Beverages Soft drinks. Other foods Cakes and [...] provider. Document Revised: 03/06/2021 Document Reviewed: 03/06/2021 [employer] Patient Education 2022 [employer]. Follow Up Care 09/20/2023 08:43:45 With:Nereyda Gomez CNP Address:Unknown When: Unknown [facility] 09-17-2023 Note [place] [facility] Subjective Nadir Heredia is a 83 [...] use: Not Currently Drug use: Never HPI Naidr is seen in follow up. He is [...] extremity edema. He was admitted to the [facility] in August 2022 due to hyponatremia, hyperkalemia and acute kidney injury, leukocytosis secondary to COVID-19 causing dehydration. I saw him on 05/24/2023 and the office and he had significant evidence of volume overload by exam and echocardiogram. I intensified his diuretic regimen. He ended up getting admitted to the [facility] with acute heart failure exacerbation and [...] Allergies Allergen Reactions Iodinated Contrast Media Nitroglycerin Lqjtaez-Ylx-Xio Reductase Inhibitors Medications Current Outpatient Medications: (more content not included)... [facility] 08-31-2023 Note Patient: Nadir lin Procedure Information Date/Time: 08/31/23 1300 Procedure: TRANSESOPHAGEAL ECHO (MARK) Location: [facility] Vascular Lab Clinical information reviewed: Allergies Meds Physical Exam Airway Mallampati: III TM distance: >3 FB Cardiovascular Rhythm: regular Rate: normal (+) murmur Dental Pulmonary Breath sounds clear to auscultation Abdominal Abdomen: soft Anesthesia Plan ASA 4 (Conscious sedation) Anesthetic plan and risks discussed with patient. Use of blood products discussed with patient who. Additional Equipment Requests [facility] 07-21-2023 Note [place] [facility] Subjective Nadir Heredia is a 83 y.o. year old male patient being seen for Follow-up Patient Active Problem List Diagnosis Aortic valve disorder Atherosclerosis of renal artery (CMS/HCC) Chronic atrial fibrillation ([facility]/HCC) Coronary arteriosclerosis Bradycardia Aortic valve stenosis Type [...] extremity edema. He was admitted to the [facility] in August 2022 due to hyponatremia, hyperkalemia and acute kidney injury, leukocytosis secondary to COVID-19 causing dehydration. I saw him on 05/24/2023 and the office and he had significant evidence of volume overload by exam and echocardiogram. I intensified his diuretic regimen. He ended up getting admitted to the [facility] with acute heart failure exacerbation and [...] Allergies Allergen Reactions Iodinated Contrast Media Nitroglycerin Knytovy-Ffk-Tmy Reductase Inhibitors Medications Current Outpatient Medications: acyclovir [...] every day by (more content not included)... [facility] 06-14-2023 Note BMP script sent [facility] 06-14-2023 Note Coronary artery dise ase is stable Continue GDMT- ASA, labetalol, zetia continue risk factor modifications- heart healthy diet, regular exercise as tolerated and continue all medications. [facility] 06-14-2023 Note stable [facility] 06-14-2023 Note Recent echo 05/2023 w ith noted mod AO stenosis [facility] 06-14-2023 Note [facility] CARDIOLOGY PROGR ESS NOTE HPI: Nadir Heredia is a 83 y.o. male here for hospital f/U after admit to [facility] for resp failure, and acute heart failure exacerbation. Recent admit to [facility] for shortness of breath, acute HFpEF [...] Allergies Allergen Reactions Iodinated Contrast Media Nitroglycerin Jdyemlr-Qzv-Zrd Reductase Inhibitors Medications: Current Outpatient Medications on [...] diastolic heart failure (CMS/HCC) Recent admit to [facility] for shortness of breath, acute HFpEF with ARTUR. BNP 3311, BUN 26, CR 1.5-1.9, LFT normal, K+ normal. Troponin level negative. CXR showed vascular congestion Pt was admitted and diuresed as inpt. [facility] III Continue GDMT- remains on jardiance and lasix 60 mg daily for diuresis Monitor daily weights, I&O, fluid restriction 1.5 (more content not included)... [facility] 06-14-2023 Note Patient here for fol low up [facility] for CHF. Dr. Sung gave him a few days of spironolactone to help with SOB. This did not help so he went to [facility] ED. He was diuresed with IV lasix. Says his breathing and LE edema are much better. Denies chest pain, lightheadedness, palpitations, and bleeding on Eliquis. Review of Systems Cardiovascular: Positive for dyspnea on exertion (improving) and leg swelling (improving). Hematologic/Lymphatic: Bruises/bleeds easily. Neurological: Positive for loss of balance. All other systems reviewed and are negative. [facility] 06-14-2023 Note Recent admit to [facility] for shortness of breath, acute HFpEF with ARTUR. BNP 3311, BUN 26, CR 1.5-1.9, LFT normal, K+ normal. Troponin level negative. CXR showed vascular congestion Pt was admitted and diuresed as inpt. [facility] Continue GDMT- remains on jardiance and lasix 60 mg daily for diuresis Monitor daily weights, I&O, fluid restriction 1.5-2L/day, renal function and electrolytes- Script for BMP and CBC provided pt is also seeing PCP today [facility] 06-10-2023 Hospital Discharge instructions Patient Education [...] hard liquor (44 mL). General instructions Take xrih-zud-awwrbyx and prescription medicines only as told by [...] provider. Document Revised: 02/19/2021 Document Reviewed: 02/19/2021 [employer] Patient Education 2022 [employer]. Follow Up Care 04/13/2023 14:39:27 With:Nereyda Gomez CNP Address: When:3 months [facility] 05-24-2023 Note [place] [facility] - [facility] Subjective Nadir Heredia is a 83 [...] extremity edema. He was admitted to the [facility] in August 2022 due to hyponatremia, [...] Allergies Allergen Reactions Iodinated Contrast Media Nitroglycerin Qtpbwok-Thr-Cwt Reductase Inhibitors Medications Current Outpatient Medications: acyclovir [...] , Rfl: ergocalciferol (Vitamin D-2) 1.25 MG (10180 Units) capsule, Take 1 capsule (50,000 Units) by mouth 1 (one) time per week., Disp: 8 capsule, Rfl: 0 ezetimibe (Zetia) 10 (more content not included)... [facility] 04-13-2023 Hospital Discharge instructions Patient Education [...] including vitamins, herbs, eye drops, creams, and blgl-vcu-xnvjhqf medicines. Any problems you or family members [...] provider tells you to take them. Taking wilu-qny-qwopdad medicines, vitamins, herbs, and supplements. General instructions [...] provider. Document Revised: 10/26/2022 Document Reviewed: 06/24/2022 [employer] Patient Education 2022 [employer]. Follow Up Care 04/09/2023 11:27:16 With:Nereyda Gomez CNP Address: When:1 month [facility] 04-13-2023 Note Radiology Colonoscopy, [...] including vitamins, herbs, eye drops, creams, and injw-lkg-efwtbqf medicines. ? Any problems you or family [...] tells you to take them. ? Taking vfyo-wem-vhzspun medicines, vitamins, herbs, and supplements. General instructions [...] for cancer cells. (more content not included)... [facility] 04-07-2023 Note Nephrology Clinic Patient: Nadir Heredia; 83 y.o. Visit date: 04/07/23 Reason for today's visit: Follow up for CKD stage 3, Hypertension, and Edema/ Fluid overload SUBJECTIVE: History Of Present Illness: HISTORICAL: 10/23/2015: Here for FU from the hospital. He was first admitted to [facility] with weight gain and so he [...] back & is being treated by a soft mud molder. He reports feeling short of breath on [...] is 83 year (more content not included)... [facility] 07-18-2022 Note EXAM: US CHANI DOP [...] authenticated by: LI ROBERTS Date: 2022-07-18 09:05 [facility] 06-09-2022 Hospital Discharge instructions Patient [...] per serving. Talk with a diet and privacy specialist (dietitian) if you have questions about [...] Bulgur wheat. Millet. Quinoa. Bran muffins. Popcorn. [place] wafer crackers. Meats and other proteins Mcbride, kidney, and mendez beans. Soybeans. Split peas. [...] Cream cheese. Sour cream. Fats and oils [place]. Beverages Soft drinks. Other foods Cakes and [...] 11/01/2006 Document Revised: 09/05/2018 Document Reviewed: 09/05/2018 [employer] Patient Education 2020 [employer]. 06/09/2022 10:13:34 Hemorrhoids Hemorrhoids Hemorrhoids are swollen [...] 3 times a day. General instructions Take aafd-ljl-esuxdeo and prescription medicines only as told by [...] 10/29/2001 Document Revised: 03/29/2020 Document Reviewed: 03/23/2019 [employer] Patient Education 2020 [employer]. 06/09/2022 10:13:31 Diverticulosis Diverticulosis Diverticulosis is a [...] overweight. Not getting enough exercise. Smoking. Taking gbyt-qqy-ehqjess pain medicines, like aspirin and ibuprofen. Having [...] health care provider or your diet and privacy specialist (dietitian). ?Take a fiber supplement or probiotic, if your health care provider approves. Take uijm-xba-xkedryy and prescription medicines only as told by [...] 07/29/2005 Document Revised: 10/14/2018 Document Reviewed: 09/20/2017 [employer] Patient Education 2020 [employer]. 06/09/2022 10:13:30 Colon Polyps Colon Polyps Polyps [...] 07/28/2005 Document Revised: 02/16/2019 Document Reviewed: 02/16/2019 [employer] Patient Education 2020 [employer]. Follow Up Care 05/13/2022 14:18:17 With:Nereyda Gomez CNP Address: When:1 year only if needed [facility] 05-11-2022 Evaluation + Plan note Extrac fernando from: Title:Anesthesia post op endo Author:Jeffrey Gr MD Date:05/11/22 Plan Transfer/ Discharge: Patient can be discharged from PACU when criteria met. Condition good. Extracted from: Title:Anesthesia Pre-Op endo 2 Author:Jeffrey Gr MD Date:05/11/22 Plan [place] [employer] Anesthesiologists (ASA) physical status classification: [...] heart and lungs, allergic reactions, and .. [facility]06-27-2022 Hospital Discharge instructions Patient Education 05/11/2022 11:13:39 Colonoscopy, Care After Surgery Salam (CUSTOM) Colonoscopy Care After Surgery Please read the instructions outlined below and refer to this sheet in the next few weeks. These discharge instructions provide you with general information on [facility] Your doctor may also give you specific [...] 07/28/2005 Document Revised: 02/16/2019 Document Reviewed: 02/16/2019 [employer] Patient Education 2020 [employer]. 05/11/2022 11:13:39 Diverticulosis MAGR (CUSTOM) Diverticulosis Many [...] unsweetened, w/added ascorbic acid 1 cup 0.5 Cidra 1 cup 0.7 Vegetables Cooked Green beans 1 cup 4.0 Carrots 1/2 cup sliced 2.3 Peas 1 cup 8.8 Potato (baked, with skin) 1 medium potato 3.8 Raw [place] (with peel) 1 cucumber 1.5 Lettuce 1 [...] 8.7 Peanuts 1/2 cup 7.9 Chart from [facility] 2013. SEEK IMMEDIATE MEDICAL [...] Information adapted from: ExitCare Patient Information 2009 Digital H2[employer]. [facility] 2012 [email or web address] Follow Up Care 03/31/2022 10:27:32 With:Napoleon MENDEZ Address: [address] [place] [address] Business (1) When: Unknown Comments:office will call for follow up [facility]05-17-2022 Hospital Discharge instructions Patient Education 03/31/2022 [...] including vitamins, herbs, eye drops, creams, and enac-sio-txvirdp medicines. Any problems you or family members [...] 10/29/2001 Document Revised: 08/24/2018 Document Reviewed: 01/12/2017 [employer] Patient Education [employer]. Follow Up Care 03/23/2022 12:11:50 With:Nereyda Gomez CNP Address: When:1 month [facility] evaluation + Plan note Future Appointments Appointment Date:05/25/2022 08:45:00 AM Scheduled Provider: Location:[facility] Appointment Type:[facility]gery [facility] Dogialuation + Plan note Future Appointments Appointment Date:06/10/2023 10:40:00 AM Scheduled Provider:Nereyda Gomez CNP Location:[facility] Appointment Type:[facility] Follow Up Future Scheduled Tests Laboratory* Fecal WBC Lactoferrin 04/13/23 * Giardia lamblia, Direct Detection EIA 04/13/23 * O & P Exam, Routine 04/13/23 * Clostridium Difficile PCR 04/13/23 * Enteric Panel by PCR 04/13/23 [facility] evaluation + Plan note Future Appointments Appointment Date:06/10/2023 10:40:00 AM Scheduled Provider:Nereyda Gomez CNP [place] Appointment Type:[facility] Follow Up Diagnostic Tests Pending * O & P Exam, Routine 04/15/23 * Giardia lamblia, Direct Detection [facility]ments Appointment Date:09/13/2023 10:40:00 AM Scheduled Provider:Nereyda Gomez CNP [place] Appointment Type:BAD Follow Up [facility] Evaluation + Plan note Future Appointments Appointment Date:10/14/2023 02:20:00 PM Scheduled Provider:Nereyda Gomez CNP [place] [place] [facility] Appointment Type:BAD Follow Up Future Scheduled Tests Laboratory* CBC w/ Auto Diff 10/01/23 * Comprehensive Metabolic Panel 10/01/23 * Thyroid Stimulating Hormone 10/01/23 [facility] Evaluation + Plan note Future Appointments Appointment Date:12/09/2023 02:00:00 PM Scheduled Provider:Nereyda Gomez CNP Location:[facility] Appointment Type:BAD Follow Up Future Scheduled Tests Laboratory* CBC w/ Auto Diff 10/01/23 * Comprehensive Metabolic Panel 10/01/23 * Thyroid Stimulating Hormone 10/01/23 [facility] Hospital course Narrative No data available for this section [facility] Hospital Discharge instructions No data available for this section [facility] No data available for this section [facility] Summary Purpose Family History No Family [...] and content) DATE CREATED AUTHOR 02/09/2019 [facility] DATE CREATED AUTHOR AUTHOR'S ORGANIZ ATION 03/28/2023 [facility] DATE CREATED AUTHOR AUTHOR'S ORGANIZ ATION 01/24/2024 Romero Nando [facility] DATE CREATED AUTHOR AUTHOR'S ORGANIZ ATION 02/11/2024 [facility] DATE CREATED AUTHOR AUTHOR'S ORGANIZ ATION 03/26/2024 [facility] Care Team (unrecognized sect ion and content) Personnel Name: Van Sung MD Address: [address] [place] [address] Personnel Name: Van Sung MD Address: [address] [place], [place] [address], [place] [address] Personnel Name: Van Sung MD Address: Address: [address] [place], [place] [address], [place] [address] Personnel Name: Van Sugn MD Address: Address: [address] [place] [id number] Personnel Name: Van Sung MD Address: Address: [address] [place], [place] [address], [place] [address] Personnel Name: Van Sung MD Address: Address: [address] [place], [place] [address], [place] [address] Personnel Name: Van Sung MD Address: Address: [address] [place] [id number] Personnel Name: Van Sung MD Address: Address: [address] [place] [id number] Personnel Name: Van Sung MD Address: Address: [address] [place] [address] Personnel Name: Van Sung MD Address: Address: [address] [place], [place] [id number] FOR RECORDS PERTAINING TO PATIENTS WHO ARE [...] BE BASED ON THE PRIMARY CLINICAL RECORDS. [facility] provides no warranty or guarantee of the accuracy or completeness of information in this document.
[2024-04-04 15:27] LABS: Internal Control Within Normal Limits; Occult Blood Positive
== END 2024-04-04 09:07 | disposition home or self-care (01) ==
LOC: LAB 09:06
PROVIDERS: PCP Family Medicine; Visit Provider Family Medicine
DX: E78.5 Hyperlipidemia, unspecified (principal); Z12.11 Encounter for screening for malignant neoplasm of colon; R53.83 Other fatigue; I10 Essential (primary) hypertension; Z12.5 Encounter for screening for malignant neoplasm of prostate; E11.9 Type 2 diabetes mellitus without complications
CPT/HCPCS: G0328

== ENCOUNTER 2024-05-23 09:29 | Outpatient (OUT) | payer MEDICARE, SELFPAY ==
[2024-05-23 10:27] LABS: Albumin Level 3.3 g/dL (3.4-5.0); Anion Gap 11.4; BUN Creatinine Ratio 15.9; Calcium 8.8 mg/dL (8.5-10.1); Carbon Dioxide 31.6 mmol/L (21.0-32.0); Chloride 105 mmol/L (98-107); Estimated GFR (African America 54 (>=60); Estimated GFR (Non-African Ame 44 (>=60); Glucose 228 mg/dL (74-106); Magnesium 2.2 mg/dL (1.8-2.4); Phosphorus 4.1 mg/dL (2.6-4.7); Sodium 144 mmol/L (136-145)
[2024-05-23 10:27] LABS: Creatinine Urine Random 14.95 mg/dL (20.00-300.00); Total Protein Urine Random <6.0 mg/dL (<=11.9)
[2024-05-23 11:34] LABS: Estimated Average Glucose 192 mg/dL; Glycohemoglobin A1C 8.3 % (4.5-6.2)
== END 2024-05-23 09:30 | disposition home or self-care (01) ==
LOC: LAB 09:29
PROVIDERS: PCP Family Medicine; Visit Provider Internal Medicine Nephrology
DX: E11.22 Type 2 diabetes mellitus with diabetic chronic kidney disease (principal); N18.32 Chronic kidney disease, stage 3b; N18.30 Chronic kidney disease, stage 3 unspecified
CPT/HCPCS: 36415; 80048; 82042; 82570; 83036; 83735; 84100; 84156; 85018

== ENCOUNTER 2024-06-09 08:55 | Outpatient (OUT) | payer MEDICARE, SELFPAY ==
--- NOTE | 2024-06-09 09:00 | CA_ITS ---
Patient Name: NADIR HEREDIA MR#: [id number] : 1940 Exam Date: 06/09/2024 Ordering Doctor: DR CLARIBEL PUGA M.D. ECHOCARDIOGRAM REPORT PROCEDURE: CA ECHO DOPPLER COMPLETE INDICATIONS: Aortic valve stenosis, pericardial effusion, COMPARISON: None. DESCRIPTION: COMPLETE ECHOCARDIOGRAM Real-time transthoracic echocardiography with 2D, M-mode, spectral and color flow Doppler performed. QUALITY: Technical quality was good. LEFT VENTRICLE: Normal chamber size. Mildly increased left ventricular wall thickness. Sigmoid septum LV EF: Global left ventricular systolic function is hyperdynamic; visually estimated ejection fraction is 65 to 70%. No obvious wall motion abnormalities. DIASTOLIC: Unable to assess diastolic function. ATRIAL SEPTUM: Visually appears intact. LEFT ATRIUM: Severe dilatation. RIGHT ATRIUM: Severe dilatation. A prominent Eustachian valve (normal variant) is seen. RIGHT VENTRICLE: Mild dilatation. Normal right ventricular systolic function. TRICUSPID VALVE: Normal mobility and thickness. No stenosis with mild regurgitation. Doppler studies reveal severely (>60) elevated right sided pressures. RVSP 64 mmHg MITRAL VALVE: Normal mobility and thickness. No evidence of mitral valve stenosis. Mild mitral annular calcification. Trivial mitral regurgitation. AORTIC VALVE: Normal trileaflet appearance. Moderate calcification. Doppler velocity suggests mild aortic stenosis. Trivial aortic regurgitation. AORTIC ROOT: Normal diameter and appearance. Ascending aorta and aortic arch are normal in size. PULMONIC VALVE: Normal thickness and mobility. No stenosis. Mild regurgitation. PERICARDIUM: There is a trivial to small anterior, and moderate posterior pericardial effusion. No obvious chamber compression is seen. Tricuspid inflow velocities are equivocal for respiratory variation IVC: Dilated IVC with no collapse. CONCLUSION: 1. Global left ventricular systolic function is hyperdynamic; visually estimated ejection fraction is 65 to 70% 2. The right ventricle is mildly dilated with normal systolic function 3. Severe biatrial enlargement 4. Mildly increased left ventricular wall thickness 5. Mild tricuspid regurgitation 6. Severely elevated right ventricular systolic pressure; RVSP 64 mmHg 7. Mild aortic valve stenosis 8. Mild pulmonic regurgitation 9. There is a trivial to small anterior and moderate posterior pericardial effusion with no convincing signs of tamponade physiology Adult Echocardiography Procedure Report Left Ventricle LVEDD (3.7 - 5.6 cm): 4.10 cm LVESD (2.2 - 4.0 cm): 3.23 cm LVIVS thickness (0.6 - 1.2 cm): 1.76 cm LVPW thickness (0.5 - 1.0 cm): 1.22 cm LVOT Max Gradient: 2.27 mm[Hg] LVOT Area (cm2): 0.75 m/s Peak Velocity (LVOT): 0.75 m/s Mean Velocity (LVOT): 0.51 m/s LVOT Diameter 2.28 cm Left Atrium LA Volume Index (2D A2C): 55.58 ml/m2 Left Atrium Systolic Dimension: 5.91 cm Mitral Valve MV E to A Ratio: 4.49 Mitral Valve A-Wave Peak Velocity: 0.20 m/s Mitral Valve E-Wave Peak Velocity: 0.88 m/s Right Ventricle Aorta AO Root Diam: 3.29 cm Ascending Ao Diam: 3.33 cm Aortic Valve AoV Area (Peak Kyle): 1.28 cm2, 1.61 cm2 AoV Area (VTI): 1.32 cm2, 1.82 cm2 Peak Velocity(Antegrade Flow): 1.90 m/s, 2.40 m/s, 2.32 m/s Peak Gradient(Antegrade Flow): 14.49 mm[Hg], 23.01 mm[Hg], 21.59 mm[Hg] Mean Velocity(Antegrade Flow): 1.15 m/s, 1.46 m/s, 1.44 m/s Mean Gradient(Antegrade Flow): 6.25 mm[Hg], 10.42 mm[Hg], 10.14 mm[Hg] Velocity Time Integral: 40.29 cm, 52.84 cm, 55.72 cm Tricuspid Valve Peak Velocity (Regurgitant Flow): 3.49 m/s Pulmonic Valve Peak Velocity: 0.81 m/s Peak Gradient: 2.61 mm[Hg] Right Atrium Right Atrium Systolic Pressure: 105.81 ml, 105.81 ml Dictated by: Rohini Traylor M.D. on 06/09/2024 at 15:04 Approved by: Rohini Traylor M.D. on 06/09/2024 at 15:15
--- OUTSIDE RECORDS SUMMARY | 2024-06-09 09:08 | XMS_ITS | CCD ---
Author Organization [facility] Care Team Providers Care Ambulance Paramedic Name Role Phone PHYSICIAN, DEFAULT Admitting Unavailable PHYSICIAN, DEFAULT Attending Unavailable VAN SUNG Primary Care Unavailable Van Sung Primary Care Physician [phone] HOY ., DR ARAUJO Primary Care Unavailable HOY ., DR ARAUJO Consulting Unavailable HOY ., DR ARAUJO Attending Unavailable HOY ., DR ARAUJO Admitting Unavailable ZIEBER, DR CLOVRE Zimmer Consulting Unavailable PORT GAMBLE, DR CRAMER Consulting Unavailable HOY ., DR ARAUJO Primary Care Unavailable PORT GAMBLE, DR CRAMER Attending Unavailable PORT GAMBLE, DR CRAMER Admitting Unavailable PORT GAMBLE, DR CRAMER Consulting Unavailable HOY ., DR ARAUJO Primary Care Unavailable PORT GAMBLE, DR CRAMER Attending Unavailable PORT GAMBLE, DR CRAMER Admitting Unavailable HOY ., DR ARAUJO Consulting Unavailable HOY ., DR ARAUJO Primary Care Unavailable HOY ., DR ARAUJO Attending Unavailable HOY ., DR ARAUJO Admitting Unavailable [place] GAMBLE, DR CRAMER Consulting Unavailable HOY ., DR ARAUJO Primary Care Unavailable [place] GAMBLE, DR CRAMER Attending Unavailable PORT GAMBLE, DR CRAMER Admitting Unavailable HOY ., DR ARAUJO Consulting Unavailable HOY ., DR ARAUJO Primary Care Unavailable HOY ., DR ARAUJO Attending Unavailable HOY ., DR ARAUJO Admsegun Unavailable THUY, ALSTON Consulting Unavailable HOY ., DR ARAUJO Primary Care Unavailable ALIGAMALIEL Attending Unavailable THUY, ALSTON Admitting Unavailable HOY ., DR ARAUJO Consulting Unavailable HOY ., DR ARAUJO Primary Care Unavailable HOY ., DR ARAUJO Attending Unavailable HOY ., DR ARAUJO Admsegun Unavailable MOUKARBEL, DR SANFORD Consulting Unavailable HOY [...] Attending Unavailable Patricia, Nereyda A Attending Unavailable Aptricia, Nereyda A Attending Unavailable NILL, Francisco Zimmer Attending Unavailable Van Sung Referring Unavailable Patricia, Nereyda A Admitting Unavailable Patricia, Nereyda A Attending Unavailable Van Sung Consulting Unavailable MD Van Sung Consulting Unavailable Patricia, Nereyda A Admitting Unavailable Patricia, Nereyda A Attending Unavailable ROBINSON CHICAS Attending Unavailable MICHAELLE, BARRIE Gil Attending Unavailable AVIVA, ROBINSON Marroquin Attending Unavailable ROBINSON CHICAS Attending Unavailable ROBINSON CHICAS Attending Unavailable MOUKARBEL, CLARIBEL Attending Unavailable MOUKARBEL, CLARIBEL Attending Unavailable MOUKARBELCLARIBEL Attending Unavailable MOUKARBELCLARIBEL Referring Unavailable DANA APARICIO Attending Unavailable SCHUYLERRYDER Almodovar Attending Unavailable MOUKAGIANNI, CLARIBEL Attending Unavailable Allergies Allergy Classification Reported Allergen(s) Allergy Type Date of Onset Reaction(s) Facility (14 sources) Aminolevulinic Acid; 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: [aminolevulinic acid] Drug Allergy 11-04-20 13 Unknown [facility] Repository (1 source) NITRO PATCH; 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: [NITRO PATCH] Propensity to adverse reactions (disorder) 03-18-20 12 [facility] Repository (12 sources) Contrast media; 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: [Contrast Dye] Drug allergy Unknown (qualifier value) [facility] (12 sources) Hmg-Coa Reductase Inhibitors (Statins); 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: [statins] Allergy to substance Unknown [facility] (20 sources) Nitroglycerin; 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: [nitroglycerin] Drug Allergy 02-23-20 Unknown (qualifier value) [facility] (2 sources) black walnut pollen extract; 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: [KSVMZQH-RBI-KTS REDUCTASE INHIBITORS] Drug Allergy 04-21-20 17 [facility] Repository (1 source) Iodine (And Iodine Containting Drugs) Drug allergy (disorder) 05-28-20 16 [facility] Repository (1 source) Aminolevulinic Acid; 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: [aminolevulinic acid] Drug Allergy 11-04-20 13 [facility] Repository (1 source) Nitroglycerin; 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: [Nitroglycerin Patch] Drug Allergy [facility] Repository (1 source) IODINATED CONTRAST MEDIA; 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: [IODINATED CONTRAST MEDIA] Propensity to adverse reactions to drug (disorder) 07-17-20 [facility] Repository Medications Current Medications Medication [...] 90 cap(s), Refills(s) 0, Pharmacy: [facility]/pharmacy #[id number], 185, cm, 06/10/23 10:45:00 EDT, Height/Length Dosing, 97, kg, 06/10/23 10:45:00 EDT, Weight Dosing Start Date: 06/10/23 Stop Date: 09/08/23 Status: Ordered Start: 08-28-2020 take 1 capsule by [facility] once daily Align 4 mg oral capsule 4 mg = 1 cap(s), Oral, Daily, Take after completing the Antibiotics course, # 28 cap(s), Refills(s) 0, [id number] 185, cm, 08/28/20 12:05:00 EDT, [...] to colonoscopy Per physician's instructions, [facility]/pharmacy #[id number], 185, cm, 03/31/22 9:58:00 [...] Date: 01/09/19 Status: Ordered 60 actuat tiotropium 0.72683 mg/actuat inhalation spray (10 sources) Anticholinergic Start: [...] 160 cap(s), Refills(s) 1, Pharmacy: 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] Onset: 08-27-2022 Episodic Other aftercare (1 source) snf (current) use of anticoagulants; 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: [JAIL CURRNT USE ANTICOAGULANTS] Onset: 08-27-2022 Episodic Other aftercare (1 source) Other skilled nursing (current) drug therapy; 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: [OTH JAIL CURRENT [...] Value Interpretation Reference Range Facility Office Visiton 06-05-2024 Follow-up visit [id number] Nadir Heredia 1940 Date Provider Department Center 06/05/2024 CLARIBEL VILLALOBOS [facility] MILKA [facility] Family History Problem Relation Age of Onset Coronary artery disease Father Family Status - Relation Status Age at Father Level of Service:83637 [place] OFFICE/OUTPATIENT ESTABLISHED MOD MDM 30 MIN [facility] 3605-17-2024 36 Faxed lab orders 05/17/24 [facility] 36on 05-15-2024 36 Patient states that he needs his blood work to go to [facility] before his appointment on 05/31/24. [facility] 05-10-2024 36 LM on for patient or his to return my call. [facility] 05-08-2024 36 Patient's called with concerns of elevated BP since hydralazine was stopped at last apt. She said sometimes it's very good - 110/60's and sometimes 152/70. He's scheduled to see you in a few weeks. Did you want to change anything? Please advise. Thanks. [facility] 36on 04-04-2024 36 Regarding blood work from 04/03/2024: MD Stephanie Kelley MA Stable renal function. Continue same treatment and follow-up as planned. Patient's made aware. [facility] Orders Onlyon 03-21-2024 Orders Only [id number] Nadir Heredia 1940 M Date Provider Department Center 03/21/2024 LUCRETIA BENZ MILKA [facility] Family History Problem Relation Age of Onset Coronary artery disease Father Family Status - Relation Status Age at Father [facility] Office Visiton 03-03-2024 Follow-up visit [id number] Nadir Heredia 1940 M Date Provider Department Center 03/03/2024 CLARIBEL VILLALOBOS MILKA [facility] Family History Problem Relation Age of Onset Coronary artery disease Father Family Status - Relation Status Age at Father Level of Service:37930 [place] OFFICE/OUTPATIENT ESTABLISHED MOD MDM 30 MIN Reason for Visit and Comments: Follow-up [650205] [facility] 36on 12-29-2023 36 Called and spoke with patient and rescheduled patients appointment from 05/31 to 06/07. [facility] 36on 12-28-2023 36 Called patient lvm to contact the office back to reschedule appointment. [facility] Follow-Upon 11-17-2023 Follow-Up [id number] Nadir Heredia 1940 M Date Provider Department Center 11/17/2023 [facility] Comprehensiv Family History Problem Relation Age of Onset Coronary artery disease Father Family Status - Relation Status Age at Father Level of Service:93098 [place] OFFICE/OUTPATIENT ESTABLISHED MOD MDM 30 MIN () Reason for Visit and Comments: Follow-up [209349] Chronic Kidney Disease [176] [facility] Lab Reportson 10-21-2023 Lab Reports [id number] #1.00TIFF [facility] Gastroenterology Office/Clin ic Noteon 10-18-2023 Gastroenterology Office/Clinic [...] fiber supplem (more content not included)... Normal [facility] Comment on above: Result Comment: Elec [...] PM EST With: Nereyda Gomez CNP Where: [facility] Normal [facility] Patient Educationon 10-14-20 23 Patient Education [...] as fried or sweet foods. These include tristanian fries, hamburgers, cookies, candies, and soda. ? Drink enough fluid to keep your urine pale yellow. General instructions ? Exercise regularly or as told by your health care provider. Try to do 150 minutes of moderate exercise each week. ? Use the bathroom when you have the urge to go. Do not hold it in. ? Take qqxj-pgg-jaezudn and prescription medicines only as told by [...] keep your urine pale yellow. ? Take tvpj-mwf-poxqpkz and prescription medicines only as told by your health care provider. This includes any fiber supplements. This information is not intended to replace advice given to you by your health care provider. Make sure you discuss any questions you have with your health care provider. Document Revised: 09/18/2020 Document Reviewed: 09/18/2020 [employer] Patient Education ? 2022 [employer]. [facility] 36on 10-12-2023 36 Patient called to make you aware that he was in [facility] ED on (Wednesday) for SOB. He wanted you to look over his records. 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 His BNP is increased to 4000 and was previously 2600 about 1 month ago. Looks like they gave him extra lasix in the ED and recommended he follow up with Dr. Sung outpatient. Can you please review and let me know if you'd like anything done/ordered? Thanks. [facility] XR Abdomen 2 Viewson 023 XR [...] mGy = . DAP = . Normal [facility] Lab Reportson 10-04-2023 Lab Reports [id number]#1.00TIFF Normal [facility] RAD - MISCon 10-04-2023 RAD - MISC [id number] #1.00TIFF Normal [facility] Ambulatory Visit Summaryon 1 12-01-2022 Ambulatory [...] PM EST With: Nereyda Gomez CNP Where: [facility] Invalid Interpretation Code Abdominal cramping [facility] Consent for Treatmenton 09-15 Consent for Treatment [id number] #1.00TIFF Normal [facility] Gastroenterology Office/Clin ic Noteon 10-01-2023 Gastroenterology [...] educated t (more content not included)... Normal [facility] Comment on above: Result Comment: Elec tronically Signed By: Nereyda Gomez CNP\.br\Date and Time Signed: 10/01/23 12:54 EST Patient [...] Bulgur wheat. Millet. Quinoa. Bran muffins. Popcorn. Arabi wafer crackers. Meats and other proteins [place] beans, kidney beans, and mendez beans. Soybeans. [...] Cream cheese. Sour cream. Fats and oils [place]. Beverages Soft drinks. Other foods Cakes and [...] provider. Document Revised: (more content not included)... [facility] 36on 09-20-2023 36 Called and spoke with and rescheduled appointment and informed her patient would need to get labs done. [facility] 36 Patients called in to reschedule appointment from 09/08 [facility] Office Visiton 09-17-2023 Follow-up visit [id number] Nadir Heredia 1940 [facility] Provider Department Center 09/17/2023 CLARIBEL VILLALOBOS [facility] Family History Problem Relation Age of Onset Coronary artery disease Father Family Status - Relation Status Age at Father Level of Service:74329 [place] OFFICE/OUTPATIENT ESTABLISHED MOD MDM 30-39 MIN Reason for Visit and Comments: Follow-up [[id number]] [facility] HP 08-31-2023 [facility] Cardiology [facility] Subjective Nadir Heredia is a 83 y.o. year old male patient being seen for Follow-up Patient Active Problem List Diagnosis Aortic valve disorder Atherosclerosis of renal artery (CMS/HCC) Chronic atrial fibrillation ([facility]) Coronary arteriosclerosis Bradycardia Aortic valve stenosis Type 1 diabetes mellitus ([facility]/HCC) Type 2 diabetes mellitus with stage 3 [...] extremity edema. He was admitted to the [facility] in August 2022 due to hyponatremia, hyperkalemia and acute kidney injury, leukocytosis secondary to COVID-19 causing dehydration. I saw him on 05/24/2023 and the office and he had significant evidence of volume overload by exam and echocardiogram. I intensified his diuretic regimen. He ended up getting admitted to the [facility] with acute heart failure exacerbation and [...] Allergies Allergen Reactions Iodinated Contrast Media Nitroglycerin Gqzxhus-Gtf-Rzh Reductase Inhibitors Medications Current Outpatient Medications: acyclovir [...] Take 1 ta (more content not included)... [facility] NURSNOTEon 08-31-2023 NURSNOTE Pt performed and passed bedside swallow study. RN educated pt on d/c instructions. RN encouraged pt to voice any questions or concerns. Pt verbalizes no questions or concerns at this time. Pt was wheeled off of unit with all of belongings. [facility] Telephoneon 08-24-2023 Telephone [id number] LauranishicailinnathanielNadir L 1940 M Date Provider Department Center 08/24/2023 RABIA KONG [facility] Family History Problem Relation Age of Onset Coronary artery disease Father Family Status - Relation Status Age at Father [facility] Office Visiton 07-21-2023 Follow-up visit [id number] Nadir Heredia 1940 M Date Provider Department Center 07/21/2023 CLARIBEL VILLALOBOS [facility] Family History Problem Relation Age of Onset Coronary artery disease Father Family Status - Relation Status Age at Father Level of Service:09918 [place] OFFICE/OUTPATIENT ESTABLISHED MOD MDM 30-39 MIN Reason for Visit and Comments: Follow-up [824803] [facility] Office Visiton 06-14-2023 Follow-up visit [id number] Nadir Heredia 1940 M Date Provider Department Center 06/14/2023 RYDER RODRÍGUEZ [facility] Family History Problem Relation Age of Onset Coronary artery disease Father Family Status - Relation Status Age at Father Level of Service:68676 [place] OFFICE/OUTPATIENT ESTABLISHED MOD MDM 30-39 MIN [facility] Ambulatory Visit Summaryon 0 06-10-2023 Ambulatory [...] AM EDT With: Nereyda Gomez CNP Where: [facility] Normal [facility] Gastroenterology Office/Clin ic Noteon 06-10-2023 Gastroenterology Office/Clinic Note HPI Staff Nadir is an 83 y.o. male here for 2 month follow up He continues with intermittent diarrhea. He states he's been able to hold stool until reaches bathroom. He states he has terrible gas recently hospitalized at [facility] for heart failure He continues with [...] 90 cap(s), Refills(s) 0, Pharmacy: [facility]/pharmacy #6 (more content not included)... Normal [facility] Comment on above: Result Comment: Elec tronically Signed By: Nereyda Gomez CNP\.br\Date and Time Signed: 06/10/23 11:02 EDT Patient [...] liquor (44 mL). General instructions ? Take iewg-qcg-knqfmzl and prescription medicines only as told by [...] 02/19/2021 D (more content not included)... Normal [facility] Giardia, Direct, EIAon 04-22 G. lamblia Ag IA Ql (Stl) Negative Invalid Interpretation Code Negative [facility] Comment on above: Result Comment: Perf ormed at: [facility] [address] [id number] PhD Huan Vyas Performed By: #### 3 [id number], [id number], [id number], [id number], [id number], [id number] ####[facility] [address] [place] [address] O & P EXAM, ROUTINE, REFLEXo n 04-22-2023 Ova and parasites identified Concentration Nom (Stl) Comment Invalid Interpretation Code [facility] Comment on above: Result Comment: No o va, cysts, or parasites seen. One negative specimen does not rule out the possibility of a parasitic infection. Performed at: [address] [id number] PhD Huan Vyas Performed By: #### 3 [id number], [id number], [id number], 86804927, [id number], [id number] ####[facility] [address] [place] [address] O & P Exam, Routineon 2022 Ova and parasites identified LM Nom (Unsp spec) Final report Invalid Interpretation Code [facility] Comment on above: Result Comment: Thes e results were obtained using wet preparation(s) and trichrome stained smear. This test does not include testing for Cryptosporidium parvum, Cyclospora, or Microsporidia. Performed at: [address] [id number] PhD Huan Vyas Performed By: #### 3 [id number], 87252354, [id number], 46175660, [id number], [id number] ####[address] [place] [address] CDiff PCRon 04-15-2023 CDiff PCR Unable to perform test due to consistency of stool. C. Difficile testing will only be performed on diarrheal (unformed) stool unless ileus due to C. difficile is expected. Reference: Clinical Practice Guidelines for Clostridium difficile Infection in Adults, Infection and Hospital Epidemiology March 2010, Vol 31, No 5. Normal [facility] Cdiff Specimen Acceptable Unacceptable Normal [facility] Comment on above: Performed By: #### 3 [id number], 26233465, [id number], 26273066, [id number], [id number] ####[facility] [address] [place] [address] Order Cancelled YES Normal [facility] Comment on above: Performed By: #### 3 6201738, 97429910, [id number], 84849752, 2089683877, 56255813 ####[facility] [place] [address] Enteric Panel by PCRon 04-15 C. coli+jejuni+upsaliens is DNA SULTANA+non-probe Ql (Stl) Not detected Normal [facility] Comment on above: Result Comment: Test ing was performed utilizing reverse form carpenter (RT), polymerase chain reaction (PCR), and array [...] nulcleic acid test. Performed By: #### 3 7084997, 50406446, 2266306351, 27007321, 6354516440, 23771640 ####[facility] [address] [place] [address] E. coli stx1+stx2 genes SULTANA+non-probe Ql (Stl) Negative Normal [facility] Comment on above: Performed By: #### 3 1225422, 44340258, 1541641662, 32763468, 5640810114, 08487222 ####[address] [place] [address] Enteric Panel by PCR Negative Normal [facility] Enteric Panel Intrl QC Pass Normal [facility] Comment on above: Result Comment: Test ing was performed utilizing reverse form carpenter (RT), polymerase chain reaction (PCR), and array [...] 1 and 2. Performed By: #### 3 5811042, 05162773, [id number], 55445487, 7105074428, 54522242 ####[facility] [address] [place] [address] Norovirus genogroup I+II RNA SULTANA+non-probe Ql (Stl) Not detected Normal [facility] Comment on above: Performed By: #### 3 3128430, 49295115, 8403250319, 26375776, 7701877062, 08449140 ####[facility] [address] [place] [address] Rotavirus A RNA SULTANA+non-probe Ql (Stl) Not detected Normal [facility] Comment on above: Performed By: #### 3 6040456, 76775420, 4902673690, 28228124, 2092778004, 21470064 ####[facility] [address] [place] [address] S. enterica+bongori DNA SULTANA+non-probe Ql (Stl) Not detected Normal [facility] Comment on above: Result Comment: This test result should be correlated with clinical presentations and medical history by a healthcare provider to determine its clinical significance. Performed By: #### 3 8677929, 58976047, 6940448047, 76065753, 1797238959, 49326929 ####[facility] [address] [place] [address] Shigella species+EIEC invasion plasmid antigen H ipaH gene SULTANA+non-probe Ql (Stl) Not detected Normal [facility] Comment on above: Performed By: #### 3 [id number], 71594375, 1610911300, 17687684, 7026065395, 16950425 ####[address] [place] [address] V. cholerae+parahaemolyt icus+vulnificus DNA SULTANA+non-probe Ql (Stl) Not detected Normal [facility] Comment on above: Performed By: #### 3 2303642, 53287128, 4644395472, 44812184, 5431180806, 22767465 ####[facility] [address] [place] [address] Y. enterocolitica DNA SULTANA+non-probe Ql (Stl) Not detected Normal [facility] Comment on above: Performed By: #### 3 0122935, 81868231, 0430829917, 40057405, 4918448192, 11593361 ####[facility] [address] [place] [address] Fecal WBC Lactoferrinon 06-0 Fecal WBC Lactoferrin Negative Normal Negative [facility] Comment on above: Result Comment: The semi-quantitative detection of elevated levels of fecal lactoferrin is a marker for fecal leukocytes and an indication of intestinal inflammation. Performed By: #### 3 5161170, 80176450, 6238194728, 31278560, 5179324104, 77180691 ####[address] [place] [address] MICRO OTHER TESTSOrdered By: Francisco Bolanos on 04-15-2023 Fecal WBC Lactoferrin Negative (04/15/23 7:00 AM) Normal Negative [facility] Man Sero Ambulatory Visit Summaryon 0 04-13-2023 [...] AM EDT With: Nereyda Gomez CNP Where: [facility] Normal [facility] Auto Diffon 04-13-2023 Basophils/100 WBC (Bld) 0.9 % Normal 0.0-2.0 [facility] Comment on above: Order Comment: Order Added by Discern Expert. Performed By: #### 1 0150749, 8952329, 2354099, 3087589 ####[facility] [address] [place] [address] Basophils/Leukocytes Auto (Bld) [Pure # fraction] 0.1 E9/L Normal 0.0-0.2 [facility] Comment on above: Order Comment: Order Added by Discern Expert. Performed By: #### 1 6254333, 5578255, 9507408, 9223335 ####[address] [place] [address] Eosinophils/100 WBC (Bld) 5.1 % Normal 0.0-8.0 [facility] Comment on above: Order Comment: Order Added by Discern Expert. Performed By: #### 1 9480527, 0187354, 3007349, 3270787 ####[address] [address] Eosinophils/Leukocyte s Auto (Bld) [Pure # fraction] 0.3 E9/L Normal 0.0-0.5 [facility] Comment on above: Order Comment: Order Added by Ayanna Expert. Performed By: #### 1 5737313, 7738605, 0314882, 0080409 ####[address] [address] Lymphocytes/100 WBC (Bld) 13.6 % Low 14.0-50.0 [facility] Comment on above: Order Comment: Order Added by Ayanna Expert. Performed By: #### 1 4130740, 2578975, 2399292, 1258431 ####[address] [address] Lymphocytes/Leukocyte s Auto (Bld) [Pure # fraction] 0.9 E9/L Low 1.0-4.0 [facility] Comment on above: Order Comment: Order Added by Discern Expert. Performed By: #### 1 2667507, 6368724, 1589015, 7072313 ####[address] [place] [address] Monocytes/100 WBC (Bld) 11.9 % Normal 4.0-14.0 [facility] Comment on above: Order Comment: Order Added by Ayanna Expert. Performed By: #### 1 6418912, 9323642, 1652402, 8669849 ####[address] [place] [address] Monocytes/Leukocytes Auto (Bld) [Pure # fraction] 0.8 E9/L Normal 0.2-1.0 [facility] Comment on above: Order Comment: Order Added by Discern Expert. Performed By: #### 1 7532699, 3496985, 7255545, 3774793 ####[address] [place] [address] Neutrophils/100 WBC (Bld) 68.5 % Normal 36.0-75.0 [facility] Comment on above: Order Comment: Order Added by Discern Expert. Performed By: #### 1 4941389, 6863806, 7467667, 8353156 ####[address] [place] [address] Neutrophils/Leukocyte s Auto (Bld) [Pure # fraction] 4.6 E9/L Normal 2.0-7.5 [facility] Comment on above: Order Comment: Order Added by Discern Expert. Performed By: #### 1 1753330, 3873284, 7743891, 5151751 ####[address] [address] CBC w/ Auto Diffon 3 Erythrocyte distribution width (RBC) [Ratio] 14.7 % High 10.9-14.2 [facility] Comment on above: Performed By: #### 1 [id number], [id number], 4274412, 3938567 ####[address] [place] [address] Hematocrit (Bld) [Volume fraction] 40.3 % Normal 37.7-49.0 [facility] Comment on above: Performed By: #### 1 [id number], 5999636, 6642696, 0658113 ####[address] [place] [address] Hemoglobin (Bld) [Mass/Vol] 13.7 g/dL Normal 13.5-17.5 [facility] Comment on above: Performed By: #### 1 [id number], 0188059, 4721767, 9285651 ####[address] [place] [address] MCH (RBC) [Entitic mass] 33.9 pg Normal 27.0-34.0 [facility] Comment on above: Performed By: #### 1 [id number], 6677552, 0075770, 3720264 ####[address] [address] MCHC (RBC) [Mass/Vol] 34.0 g/dL Normal 31.4-36.0 [facility] Comment on above: Performed By: #### 1 [id number], 9345297, 3093639, 6921763 ####[address] [address] MCV (RBC) [Entitic vol] 99.8 fL Normal 80.0-100.0 [facility] Comment on above: Performed By: #### 1 8999900, 6851251, 1314735, 4669481 ####[address] [address] Platelet mean volume (Bld) [Entitic vol] 9.8 fL Normal 6.4-10.8 [facility] Comment on above: Performed By: #### 1 3428959, 2797414, 6444523, 9498701 ####[address] [address] Platelets (Bld) [#/Vol] 161.0 E9/L Normal 150.0-500.0 [facility] Comment on above: Performed By: #### 1 [id number], 8375700, 6158820, 4062144 ####[address] [address] RBC (Bld) [#/Vol] 4.0 E12/L Low 4.3-5.9 [facility] Comment on above: Performed By: #### 1 8714858, 5484806, 6341294, 0199917 ####[address] [place] [address] WBC corrected for nucl RBC Auto (Bld) [#/Vol] 6.7 E9/L Normal 4.0-11.0 [facility] Comment on above: Performed By: #### 1 2350117, 4800752, 6550434, 7851320 ####[facility] [address] [place] [address] CHEMISTRYOrdered By: SYSTEM SYSTEM on 04-13-2023 Albumin [...] 111 mg/dL Normal 55 - 199 mg/dL [facility] Remisol Potassium [Moles/Vol] 4.1 mmol/L Normal 3.5 - 5.3 mmol/L [facility] Remisol Protein [Mass/Vol] 6.6 g/dL Normal 6.0 - 7.8 gm/dL [facility] Remisol Sodium [Moles/Vol] 141 mmol/L Normal 135 - 145 mmol/L [facility] Remisol Urea nitrogen [Mass/Vol] 24 mg/dL High 5 - 21 mg/dL [facility] Remisol Urea nitrogen/Creatinine [Mass ratio] 13 mg/mg Normal 10 - 20 [facility] Remisol CMPon 04-13-2023 Albumin [Mass/Vol] 3.8 g/dL Normal 3.3-5.0 [facility] Comment on above: Performed By: #### 1 [id number], 7500655, 1685320, 7350872 ####[facility] [address] [place] [address] Albumin/Globulin (S) [Mass conc ratio] 1.4 Normal 1.1-2.2 [facility] Comment on above: Performed By: #### 1 9073475, 8595295, 2208744, 0059303 ####[address] [place] [address] ALP [Catalytic activity/Vol] 61 Int._Unit/L Normal 21-98 [facility] Comment on above: Performed By: #### 1 3650539, 2832173, 6028059, 0866358 ####[facility] [address] [place] [address] ALT No additional P-5'-P [Catalytic activity/Vol] 16 Int._Unit/L Normal 6-46 [facility] Comment on above: Performed By: #### 1 7952191, 3814830, 1610414, 1416686 ####[facility] [address] [place] [address] Anion gap [Moles/Vol] 13 mmol/L Normal 6-16 [facility] Comment on above: Performed By: #### 1 4591088, 6578864, 7862495, 3585556 ####[facility] [address] [place] [address] AST [Catalytic activity/Vol] 18 Int._Unit/L Normal 5-43 [facility] Comment on above: Performed By: #### 1 5716283, 7922559, 5137395, 7820117 ####[facility] [address] [place] [address] Bilirubin [Mass/Vol] 0.5 mg/dL Normal 0.0-1.1 [facility] Comment on above: Performed By: #### 1 2313896, 9896131, 6549554, 1353779 ####[facility] [address] [place] [address] Calcium [Mass/Vol] 8.8 mg/dL Low 8.9-11.1 [facility] Comment on above: Performed By: #### 1 1375413, 2174313, 4385501, 8384998 ####[facility] [address] [place] [address] Chloride [Moles/Vol] 104 mmol/L Normal 101-111 [facility] Comment on above: Performed By: #### 1 7548340, 7865245, 9040287, 5445545 ####[facility] [address] [place] [address] CO2 [Moles/Vol] 28 mmol/L Normal 21-31 [facility] Comment on above: Performed By: #### 1 0061911, 1252755, 7200968, 5504671 ####[facility] [address] [place] [address] Creatinine [Mass/Vol] 1.8 mg/dL High 0.5-1.3 [facility] Comment on above: Performed By: #### 1 9317546, 1072770, 2572641, 7325598 ####[facility] [address] [place] [address] Globulin (S) [Mass/Vol] 2.8 g/dL Normal 1.4-4.0 [facility] Comment on above: Performed By: #### 1 1376758, 9160955, 7105482, 7031540 ####[facility] [address] [place] [address] Glucose [Mass/Vol] 111 mg/dL Normal 55-199 [facility] Comment on above: Result Comment: If t his glucose result represents a fasting glucose, interpretation should refer to the following reference range: 55-99 mg/dL Performed By: #### 1 8519797, 5063837, 7673596, 5677325 ####[facility] [address] [place] [address] Potassium [Moles/Vol] 4.1 mmol/L Normal 3.5-5.3 [facility] Comment on above: Performed By: #### 1 0348703, 5904918, 2571293, 1177929 ####[facility] [address] [place] [address] Protein [Mass/Vol] 6.6 g/dL Normal 6.0-7.8 [facility] Comment on above: Performed By: #### 1 6161486, 1840533, 2274810, 7554894 ####[facility] [address] [place] [address] Sodium [Moles/Vol] 141 mmol/L Normal 135-145 [facility] Comment on above: Performed By: #### 1 8147855, 7283939, 1666273, 2972558 ####[facility] [address] [place] [address] Urea nitrogen [Mass/Vol] 24 mg/dL High 5-21 [facility] Comment on above: Performed By: #### 1 9065450, 6400043, 6557809, 0651895 ####[facility] [address] [place] [address] Urea nitrogen/Creatinine [Mass ratio] 13 No Units Normal 10-20 [facility] Comment on above: Performed By: #### 1 4042676, 0801145, 4603160, 0404119 ####[facility] [address] [place] [address] Consent for Treatmenton 03-17 Consent for Treatment [id number] #1.00CD:127 Normal [facility] Gastroenterology Office/Clin ic Noteon 04-13-2023 Gastroenterology Office/Clinic [...] 4 mg= (more content not included)... Normal [facility] Comment on above: Result Comment: Elec [...] 14.7 % High 10.9 - 14.2 % FT [facility] Hematocrit (Bld) [Volume fraction] 40.3 % Normal 37.7 - 49.0 % [facility] Hemoglobin (Bld) [Mass/Vol] 13.7 g/dL Normal 13.5 - 17.5 gm/dL [facility] MCH (RBC) [Entitic mass] 33.9 pg Normal 27.0 - 34.0 pg FT [facility] MCHC (RBC) [Mass/Vol] 34.0 g/dL Normal 31.4 - 36.0 gm/dL [facility] MCV (RBC) [Entitic vol] 99.8 fL Normal 80.0 - 100.0 fL [facility] Platelet mean volume (Bld) [Entitic vol] 9.8 fL Normal 6.4 - 10.8 fL [facility] Platelets (Bld) [#/Vol] 161.0 E9/L Normal 150.0 - 500.0 E9/L [facility] RBC (Bld) [#/Vol] 4.0 E12/L Low 4.3 - 5.9 E12/L [facility] WBC corrected for nucl RBC Auto (Bld) [#/Vol] 6.7 E9/L Normal 4.0 - 11.0 E9/L [facility] HemeAutoSS eGFRon 04-13-2023 GFR/1.73 sq M.predicted among non-blacks MDRD (S/P/Bld) [Vol rate/Area] 37 mL/min/1.73 m2 Low >=59 [facility] Comment on above: Order Comment: Order added by Discern Expert. Result Comment: Manager [address] rd kidney disease could be indicated at eGFR's of less than 60 mL/min/1.73m2. Kidney failure is indicated at less than 15 mL/min/1.73m2. Performed By: #### 1 [id number], 9030668, 0491944, 9652851 ####[facility] [address] [place] [address] ALBUMINon 03-24-2023 Albumin [Mass/Vol] 3.3 g/dL Critically low 3.4-5.0 [facility] Comment on above: Performed By: #### M G, BMP, PHOS #### [facility] [address] [place] [address] Dr. David Magana GLYCOHEMOGLOBIN A1Con 2022 ADA RECOMMENDATION SEE BELOW Normal [facility] Comment on above: Result Comment: ADA RECOMMENDED LIMIT 4.0 - 6.0 ADA THERAPEUTIC TARGET < 7.0 ACTION SUGGESTED > 7.0 Performed By: #### A 1C #### [facility] [address] [place] [address] Dr. David Magana Glucose [Mass/Vol] 108 mg/dL Normal [facility] Comment on above: Performed By: #### A 1C #### [facility] [address] [place] [address] Dr. David Magana HbA1c (Bld) [Mass fraction] 5.4 % Normal 4.5-6.2 [facility] Comment on above: Performed By: #### A 1C #### [facility] [address] [place] [address] Dr. David Magana PHOSPHORUSon 03-24-2023 Phosphate [Mass/Vol] 3.6 mg/dL Normal 2.6-4.7 [facility] Comment on above: Performed By: #### M G, BMP, PHOS #### [facility] [address] [place] [address] Dr. David Magana PROF CHEM 8 (BAS METB)on Anion gap [Moles/Vol] 11.6 mmol/L Normal [facility] Comment on above: Performed By: #### M G, BMP, PHOS #### [facility] [address] [place] [address] Dr. David Magana Calcium [Mass/Vol] 8.9 mg/dL Normal 8.5-10.[address] [facility] Comment on above: Performed By: #### M G, BMP, PHOS #### [facility] [address] [place] [address] Dr. David Magana Chloride [Moles/Vol] 107 mmol/L Normal 98-107 [facility] Comment on above: Performed By: #### M ERICK Faith, PHOS #### [facility] [address] [address] [address] David Magana CO2 [Moles/Vol] 30.8 mmol/L Normal 21.0-32.0 [facility] Comment on above: Performed By: #### M Marcell BMP, PHOS #### [facility] [address] [place] [address] Dr. David Magana Creatinine [Mass/Vol] 1.67 mg/dL Critically high 0.70-1.30 [facility] Comment on above: Performed By: #### ERICK Jacques, PHOS #### [facility] [address] [place] [address] Dr. David Magana EGFR-AF KOSOVAN 48 mL/min/1.73m2 Critically low >=60 [facility] Comment on above: Performed By: #### ERICK Jacques, PHOS #### [facility] [address] [place] [address] Dr. David Magana EGFR-NON AF KOSOVAN 39 mL/min/1.73m2 Critically low >=60 [facility] Comment on above: Performed By: #### ERICK Jacques, PHOS #### [facility] [address] [place] [address] Dr. David Magana Glucose [Mass/Vol] 128 mg/dL Critically high 74-106 [facility] Comment on above: Performed By: #### ERICK Jacques, PHOS #### [facility] [address] [place] [address] Dr. David Magana Potassium [Moles/Vol] 4.4 mmol/L Normal 3.5-5.1 [facility] Comment on above: Performed By: #### ERICK Jacques, PHOS #### [facility] [address] [place] [address] Dr. David Magana Sodium [Moles/Vol] 145 mmol/L Normal 136-145 [facility] Comment on above: Performed By: #### Jim Faith BMP, PHOS #### [facility] [address] [place] [address] Dr. David Magana Urea nitrogen [Mass/Vol] 25.0 mg/dL Critically high 7.0-18.0 [facility] Comment on above: Performed By: #### ERICK Jacques, PHOS #### [facility] [address] [place] [address] Dr. David Magana Urea nitrogen/Creatinine [Mass ratio] 15.0 mg/mg Normal [facility] Comment on above: Performed By: #### ERICK Jacques, PHOS #### [facility] [address] [place] [address] Dr. David Magana VITAMIN D 25 OHon 03-24-2023 VIT D 25-OH 11.6 ng/mL Normal [facility] Comment on above: Performed By: #### C BC #### [facility] [address] [place] [address] Dr. David Magana VIT D RANGES SEE BELOW Normal [facility] Comment on above: Result Comment: <20 ng/mL Vit D deficient 20 - <30 ng/mL Vit D insufficient 30 - 100 ng/mL Vit D sufficient >100 ng/mL Potential Toxicity Performed By: #### C BC #### [facility] [address] [place] [address] Dr. David Magana Physician Referralon 023 Physician Referral [id number] #[id number]:127 Normal [facility] CBC AUTO DIFFon 02-27-2023 BASO # 0.0 103/ul Normal 0.0-0.1 [facility] Comment on above: Performed By: #### ERICK Jacques, PHOS #### [facility] [address] [place] [address] Dr. David Magana Basophils/100 WBC (Bld) 0.5 % Normal 0.2-2.0 [facility] Comment on above: Performed By: #### M ERICK Faith, PHOS #### [facility] [address] [place] [address] Dr. David Magana EO # 0.7 103/ul Normal 0.0-0.7 [facility] Comment on above: Performed By: #### ERICK Jacques, PHOS #### [facility] [address] [place] [address] Dr. David Magana Eosinophils/100 WBC (Bld) 9.3 % Critically high 0.9-7.0 [facility] Comment on above: Performed By: #### ERICK Jacques, PHOS #### [facility] [address] [place] [address] Dr. David Magana Erythrocyte distribution width (RBC) [Ratio] 14.6 % Normal 11.0-15.0 [facility] Comment on above: Performed By: #### ERICK Jacques, PHOS #### [facility] [address] [place] [address] Dr. David Magana Hematocrit (Bld) [Volume fraction] 41.5 % Critically low 42.0-54.0 [facility] Comment on above: Performed By: #### ERICK Jacques, PHOS #### [facility] [address] [place] [address] Dr. David Magana Hemoglobin (Bld) [Mass/Vol] 13.9 g/dL Critically low 14.0-18.0 [facility] Comment on above: Performed By: #### ERICK Jacques, PHOS #### [facility] [address] [place] [address] Dr. David Magana IG # 0.02 10e3/ul Normal 0.00-0.03 [facility] Comment on above: Performed By: #### ERICK Jacques, PHOS #### [facility] [address] [place] [address] Dr. David Magana IG % 0.3 % Normal 0.0-0.5 [facility] Comment on above: Performed By: #### ERICK Jacques, PHOS #### [facility] [address] [place] [address] Dr. David Magana LYMPH # 1.0 103/ul Critically low 1.2-3.8 [facility] Comment on above: Performed By: #### ERICK Jacques, PHOS #### [facility] [address] [place] [address] Dr. David Magana Lymphocytes/100 WBC (Bld) 13.0 % Critically low 20.5-60.0 [facility] Comment on above: Performed By: #### M G, BMP, PHOS #### [facility] [address] [place] [address] Dr. David Magana MANUAL DIFF REQ NO Normal [facility] Comment on above: Performed By: #### M G, BMP, PHOS #### [facility] [address] [place] [address] Dr. David Magana MCH (RBC) [Entitic mass] 33.5 pg Normal 25.9-34.0 [facility] Comment on above: Performed By: #### M G, BMP, PHOS #### [facility] [address] [place] [address] Dr. David Magana MCHC (RBC) [Mass/Vol] 33.5 g/dL Normal 29.9-35.2 [facility] Comment on above: Performed By: #### M G, BMP, PHOS #### [facility] [address] [place] [address] Dr. David Magana MCV (RBC) [Entitic vol] 100.0 fL Critically high 80.0-94.0 [facility] Comment on above: Performed By: #### M G, BMP, PHOS #### [facility] [address] [place] [address] Dr. David Magana MONO # 0.8 103/ul Normal 0.3-0.8 [facility] Comment on above: Performed By: #### M G, BMP, PHOS #### [facility] [address] [place] [address] Dr. David Magana Monocytes/100 WBC (Bld) 10.1 % Normal 1.7-12.0 [facility] Comment on above: Performed By: #### M G, BMP, PHOS #### [facility] [address] [place] [address] Dr. David Magana NEUT # 5.0 103/ul Normal 1.4-6.5 [facility] Comment on above: Performed By: #### ERICK Jacques, PHOS #### [facility] [address] [place] [address] Dr. David Magana Neutrophils/100 WBC (Bld) 66.8 % Normal 43.0-75.0 [facility] Comment on above: Performed By: #### ERICK Jacques, PHOS #### [facility] [address] [place] [address] Dr. David Magana Platelet mean volume (Bld) [Entitic vol] 11.2 fL Normal 9.5-13.5 [facility] Comment on above: Performed By: #### ERICK Jacques, PHOS #### [facility] [address] [place] [address] Dr. David Magana PLT 187 103/ul Normal 150-450 [facility] Comment on above: Performed By: #### ERICK Jacques, PHOS #### [facility] [address] [place] [address] Dr. David Magana RBC 4.15 106/ul Critically low 4.70-6.10 [facility] Comment on above: Performed By: #### ERICK Jacques, PHOS #### [facility] [address] [place] [address] Dr. David Magana WBC 7.5 103/ul Normal 4.0-11.0 [facility] Comment on above: Performed By: #### ERICK Jacques, PHOS #### [facility] [address] [place] [address] Dr. David Magana PROF 14(COMP METB)on 023 Albumin [Mass/Vol] 3.5 g/dL Normal 3.4-5.0 [facility] Comment on above: Performed By: #### A 1C #### [facility] [address] [place] [address] Dr. David Magana Albumin/Globulin [Mass ratio] 1.1 {ratio} Normal [facility] Comment on above: Performed By: #### A 1C #### [facility] [address] [place] [address] Dr. David Magana ALP [Catalytic activity/Vol] 76 U/L Normal 46-116 [facility] Comment on above: Performed By: #### A 1C #### [facility] [address] [place] [address] Dr. David Magana ALT [Catalytic activity/Vol] 23 U/L Normal 16-63 [facility] Comment on above: Performed By: #### A 1C #### [facility] [address] [place] [address] Dr. David Magana Anion gap [Moles/Vol] 13.1 mmol/L Normal [facility] Comment on above: Performed By: #### A 1C #### [facility] [address] [place] [address] Dr. David Magana AST [Catalytic activity/Vol] 17 U/L Normal 15-37 [facility] Comment on above: Performed By: #### A 1C #### [facility] [address] [place] [address] Dr. David Magana Bilirubin [Mass/Vol] 0.7 mg/dL Normal 0.2-1.0 [facility] Comment on above: Performed By: #### A 1C #### [facility] [address] [place] [address] Dr. David Magana Calcium [Mass/Vol] 9.0 mg/dL Normal 8.5-10.1 [facility] Comment on above: Performed By: #### A 1C #### [facility] [address] [place] [address] Dr. David Magana Chloride [Moles/Vol] 105 mmol/L Normal 98-107 [facility] Comment on above: Performed By: #### A 1C #### [facility] [address] [place] [address] Dr. David Magana CO2 [Moles/Vol] 29.0 mmol/L Normal 21.0-32.0 [facility] Comment on above: Performed By: #### A 1C #### [facility] [address] [place] [address] Dr. David Magana Creatinine [Mass/Vol] 1.77 mg/dL Critically high 0.70-1.30 [facility] Comment on above: Performed By: #### A 1C #### [facility] [address] [address] [address] David Magana EGFR-AF KOSOVAN 45 mL/min/1.73m2 Critically low >=60 [facility] Comment on above: Performed By: #### A 1C #### [facility] [address] [address] [address] David Magana EGFR-NON AF KOSOVAN 37 mL/min/1.73m2 Critically low >=60 [facility] Comment on above: Performed By: #### A 1C #### [facility] [address] [place] [address] Dr. David Magana Globulin (S) [Mass/Vol] 3.3 g/dL Normal [facility] Comment on above: Performed By: #### A 1C #### [facility] [address] [address] [address] David Magana Glucose [Mass/Vol] 135 mg/dL Critically high 74-106 [facility] Comment on above: Performed By: #### A 1C #### [facility] [address] [address] [address] David Magana Potassium [Moles/Vol] 4.1 mmol/L Normal 3.5-5.1 [facility] Comment on above: Performed By: #### A 1C #### [facility] [address] [address] [address] David Magana Protein [Mass/Vol] 6.8 g/dL Normal 6.4-8.[address] [facility] Comment on above: Performed By: #### A 1C #### [facility] [address] [address] [address] David Magana Sodium [Moles/Vol] 143 mmol/L Normal 136-145 [facility] Comment on above: Performed By: #### A 1C #### [facility] [address] [address] [address] David Magana Urea nitrogen [Mass/Vol] 31.0 mg/dL Critically high 7.0-18.0 [facility] Comment on above: Performed By: #### A 1C #### [facility] [address] [place] [address] Dr. David Magana Urea nitrogen/Creatinine [Mass ratio] 17.5 mg/mg Normal [facility] Comment on above: Performed By: #### A 1C #### [facility] [address] [place] [address] Dr. David Magana PROTIMEon 02-27-2023 INR Coag (PPP) [Relative time] 0.99 {INR} Normal [facility] Comment on above: Performed By: #### A 1C #### [facility] [address] [place] [address] Dr. David Magana INR GUIDELINES SEE BELOW Normal [facility] Comment on above: Result Comment: IDANIA RED INR: 2.0 - 3.0 CONDITIONS NOT LISTED BELOW 2.5 - 3.5 FOR PROSTHETIC HEART VALVE REPLACEMENT 2.5 - 3.5 RECURRENT THROMBOSIS Performed By: #### A 1C #### [facility] [address] [place] [address] Dr. David Magana PT Coag (PPP) [Time] 10.5 s Normal 9.0-11.6 [facility] Comment on above: Performed By: #### A 1C #### [facility] [address] [place] [address] Dr. David Magana PTTon 02-27-2023 aPTT Coag (Bld) [Time] 33.0 s Normal 22.3-36.2 [facility] Comment on above: Performed By: #### P OCGLUC #### [facility] [address] [place] [address] Dr. David Magana ALBUMINon 12-28-2022 Albumin [Mass/Vol] 3.6 g/dL Normal 3.4-5.[address] [facility] Comment on above: Performed By: #### C BC #### [facility] [address] [place] [address] Dr. David Magana GLYCOHEMOGLOBIN A1Con 2022 ADA RECOMMENDATION SEE BELOW Normal [facility] Comment on above: Result Comment: ADA RECOMMENDED LIMIT 4.0 - 6.0 ADA THERAPEUTIC TARGET < 7.0 ACTION SUGGESTED > 7.0 Performed By: #### P OCGLUC #### [facility] [address] [place] [address] Dr. David Magana Glucose [Mass/Vol] 140 mg/dL Normal [facility] Comment on above: Performed By: #### P OCGLUC #### [facility] [address] [address] [address] David Magana HbA1c (Bld) [Mass fraction] 6.5 % Critically high 4.5-6.2 [facility] Comment on above: Performed By: #### P OCGLUC #### [facility] [address] [place] [address] Dr. David Magana MAGNESIUMon 12-28-2022 Magnesium [Mass/Vol] 2.3 mg/dL Normal 1.8-2.4 [facility] Comment on above: Performed By: #### P OCGLUC #### [facility] [address] [place] [address] Dr. David Magana PROF CHEM 8 (BAS METB)on Anion gap [Moles/Vol] 13.2 mmol/L Normal [facility] Comment on above: Performed By: #### P OCGLUC #### [facility] [address] [place] [address] Dr. David Magana Calcium [Mass/Vol] 9.0 mg/dL Normal 8.5-10.[address] [facility] Comment on above: Performed By: #### P OCGLUC #### [facility] [address] [place] [address] Dr. David Magana Chloride [Moles/Vol] 105 mmol/L Normal 98-107 [facility] Comment on above: Performed By: #### P OCGLUC #### [facility] [address] [place] [address] Dr. David Magana CO2 [Moles/Vol] 28.9 mmol/L Normal 21.0-32.0 [facility] Comment on above: Performed By: #### P OCGLUC #### [facility] [address] [address] [address] David Magana Creatinine [Mass/Vol] 1.66 mg/dL Critically high 0.70-1.30 [facility] Comment on above: Performed By: #### P OCGLUC #### [facility] [address] [address] [address] David Magana EGFR-AF KOSOVAN 48 mL/min/1.73m2 Critically low >=60 [facility] Comment on above: Performed By: #### P OCGLUC #### [facility] [address] [address] [address] David Magana EGFR-NON AF KOSOVAN 40 mL/min/1.73m2 Critically low >=60 [facility] Comment on above: Performed By: #### P OCGLUC #### [facility] [address] [address] [address] David Magana Glucose [Mass/Vol] 123 mg/dL Critically high 74-106 [facility] Comment on above: Performed By: #### P OCGLUC #### [facility] [address] [address] [address] David Magana Potassium [Moles/Vol] 4.1 mmol/L Normal 3.5-5.1 [facility] Comment on above: Performed By: #### P OCGLUC #### [facility] [address] [address] [address] David Magana Sodium [Moles/Vol] 143 mmol/L Normal 136-145 [facility] Comment on above: Performed By: #### P OCGLUC #### [facility] [address] [address] [address] David Magana Urea nitrogen [Mass/Vol] 29.0 mg/dL Critically high 7.0-18.0 [facility] Comment on above: Performed By: #### P OCGLUC #### [facility] [address] [address] [address] David Magana Urea nitrogen/Creatinine [Mass ratio] 17.5 mg/mg Normal [facility] Comment on above: Performed By: #### P OCGLUC #### [facility] [address] [place] [address] Dr. David Magana URINE T PROTEIN CREAT RATIOo n 12-28-2022 UR TOTAL PROTEIN <6.0 Normal <=12.0 [facility] Comment on above: Performed By: #### M ERICK Faith, PHOS #### [facility] [address] [place] [address] Dr. David Magana URINE CREAT 41.21 mg/dL Normal 20.00-300.00 [facility] Comment on above: Performed By: #### M ERICK Faith, PHOS #### [facility] [address] [place] [address] Dr. David Magana ALBUMINon 11-16-2022 Albumin [Mass/Vol] 3.3 g/dL Critically low 3.4-5.0 [facility] Comment on above: Performed By: #### C BC #### [facility] [address] [place] [address] Dr. David Magana CREATININE URINEon URINE CREAT 19.69 mg/dL Critically low 20.00-300.00 [facility] Comment on above: Performed By: #### M ERICK Faith, PHOS #### [facility] [address] [place] [address] Dr. David Magana HEMOGLOBINon 11-16-2022 Hemoglobin (Bld) [Mass/Vol] 14.9 g/dL Normal 14.0-18.0 [facility] Comment on above: Performed By: #### M ERICK Faith, PHOS #### [facility] [address] [place] [address] Dr. David Magana MAGNESIUMon 11-16-2022 Magnesium [Mass/Vol] 2.2 mg/dL Normal 1.8-2.4 [facility] Comment on above: Performed By: #### C BC #### [facility] [address] [place] [address] Dr. David Magana PHOSPHORUSon 11-16-2022 Phosphate [Mass/Vol] 3.9 mg/dL Normal 2.6-4.7 [facility] Comment on above: Performed By: #### C BC #### [facility] [address] [address] [address] David Magana PROF CHEM 8 (BAS METB)on Anion gap [Moles/Vol] 11.9 mmol/L Normal [facility] Comment on above: Performed By: #### C BC #### [facility] [address] [place] [address] Dr. David Magana Calcium [Mass/Vol] 8.8 mg/dL Normal 8.5-10.1 [facility] Comment on above: Performed By: #### C BC #### [facility] [address] [place] [address] Dr. David Magana Chloride [Moles/Vol] 104 mmol/L Normal 98-107 [facility] Comment on above: Performed By: #### C BC #### [facility] [address] [place] [address] Dr. David Magana CO2 [Moles/Vol] 27.4 mmol/L Normal 21.0-32.0 [facility] Comment on above: Performed By: #### C BC #### [facility] [address] [place] [address] Dr. David Magana Creatinine [Mass/Vol] 1.68 mg/dL Critically high 0.70-1.30 [facility] Comment on above: Performed By: #### C BC #### [facility] [address] [place] [address] Dr. David Magana EGFR-AF KOSOVAN 48 mL/min/1.73m2 Critically low >=60 [facility] Comment on above: Performed By: #### C BC #### [facility] [address] [place] [address] Dr. David Magana EGFR-NON AF KOSOVAN 39 mL/min/1.73m2 Critically low >=60 [facility] Comment on above: Performed By: #### C BC #### [facility] [address] [place] [address] Dr. David Magana Glucose [Mass/Vol] 212 mg/dL Critically high 74-106 [facility] Comment on above: Performed By: #### C BC #### [facility] [address] [address] [address] David Magana Potassium [Moles/Vol] 4.3 mmol/L Normal 3.5-5.1 [facility] Comment on above: Performed By: #### C BC #### [facility] [address] [address] [address] David Magana Sodium [Moles/Vol] 139 mmol/L Normal 136-145 [facility] Comment on above: Performed By: #### C BC #### [facility] [address] [address] [address] David Magana Urea nitrogen [Mass/Vol] 25.0 mg/dL Critically high 7.0-18.0 [facility] Comment on above: Performed By: #### C BC #### [facility] [address] [address] [address] David Magana Urea nitrogen/Creatinine [Mass ratio] 14.9 mg/mg Normal [facility] Comment on above: Performed By: #### C BC #### [facility] [address] [address] [address] David Magana PROTEIN RAND URINEon 023 UR PROT <5.0 Normal <=11.9 [facility] Comment on above: Performed By: #### M G, BMP, PHOS #### [facility] [address] [place] [address] Dr. David Magana US CHANI DOP LEG [...] by: CLOVER PEREZ Date: 2022-11-02 16:21 Normal [facility] BNPon 07-22-2022 Natriuretic peptide B (Bld) [Mass/Vol] 2143.0 pg/mL Critically high <=1,800.0 [facility] Comment on above: Performed By: #### M ERICK Faith PHOS #### [facility] [address] [place] [address] Dr. David Magana CBC AUTO DIFFon 07-22-2022 BASO # 0.0 103/ul Normal 0.0-0.1 [facility] Comment on above: Performed By: #### A 1C #### [facility] [address] [place] [address] Dr. David Magana Basophils/100 WBC (Bld) 0.3 % Normal 0.2-2.0 [facility] Comment on above: Performed By: #### A 1C #### [facility] [address] [place] [address] Dr. David Magana EO # 0.3 103/ul Normal 0.0-0.7 [facility] Comment on above: Performed By: #### A 1C #### [facility] [address] [place] [address] Dr. David Magana Eosinophils/100 WBC (Bld) 2.4 % Normal 0.9-7.0 [facility] Comment on above: Performed By: #### A 1C #### [facility] [address] [place] [address] Dr. David Magana Erythrocyte distribution width (RBC) [Ratio] 13.4 % Normal 11.0-15.0 [facility] Comment on above: Performed By: #### A 1C #### [facility] [address] [place] [address] Dr. David Magana Hematocrit (Bld) [Volume fraction] 42.7 % Normal 42.0-54.0 [facility] Comment on above: Performed By: #### A 1C #### [facility] [address] [place] [address] Dr. David Magana Hemoglobin (Bld) [Mass/Vol] 14.2 g/dL Normal 14.0-18.0 [facility] Comment on above: Performed By: #### A 1C #### [facility] [address] [place] [address] Dr. David Magana IG # 0.18 10e3/ul Critically high 0.00-0.03 [facility] Comment on above: Performed By: #### A 1C #### [facility] [address] [place] [address] Dr. David Magana IG % 1.6 % Critically high 0.0-0.5 [facility] Comment on above: Performed By: #### A 1C #### [facility] [address] [place] [address] Dr. David Magana LYMPH # 0.9 103/ul Critically low 1.2-3.8 [facility] Comment on above: Performed By: #### A 1C #### [facility] [address] [place] [address] Dr. David Magana Lymphocytes/100 WBC (Bld) 8.1 % Critically low 20.5-60.0 [facility] Comment on above: Performed By: #### A 1C #### [facility] [address] [place] [address] Dr. David Magana MANUAL DIFF REQ NO Normal [facility] Comment on above: Performed By: #### A 1C #### [facility] [address] [place] [address] Dr. David Magana MCH (RBC) [Entitic mass] 33.3 pg Normal 25.9-34.0 [facility] Comment on above: Performed By: #### A 1C #### [facility] [address] [place] [address] Dr. David Magana MCHC (RBC) [Mass/Vol] 33.3 g/dL Normal 29.9-35.2 [facility] Comment on above: Performed By: #### A 1C #### [facility] [address] [place] [address] Dr. David Magana MCV (RBC) [Entitic vol] 100.2 fL Critically high 80.0-94.0 [facility] Comment on above: Performed By: #### A 1C #### [facility] [address] [address] [address] David Magana MONO # 1.2 103/ul Critically high 0.3-0.8 [facility] Comment on above: Performed By: #### A 1C #### [facility] [address] [address] [address] David Magana Monocytes/100 WBC (Bld) 10.5 % Normal 1.7-12.0 [facility] Comment on above: Performed By: #### A 1C #### [facility] [address] [address] [address] David Magana NEUT # 8.9 103/ul Critically high 1.4-6.5 [facility] Comment on above: Performed By: #### A 1C #### [facility] [address] [place] [address] Dr. David Magana Neutrophils/100 WBC (Bld) 77.1 % Critically high 43.0-75.0 [facility] Comment on above: Performed By: #### A 1C #### [facility] [address] [address] [address] David Magana Platelet mean volume (Bld) [Entitic vol] 11.3 fL Normal 9.5-13.5 [facility] Comment on above: Performed By: #### A 1C #### [facility] [address] [place] [address] Dr. David Magana PLT 175 103/ul Normal 150-450 [facility] Comment on above: Performed By: #### A 1C #### [facility] [address] [place] [address] Dr. David Magana RBC 4.26 106/ul Critically low 4.70-6.10 [facility] Comment on above: Performed By: #### A 1C #### [facility] [address] [place] [address] Dr. David Magana WBC 11.5 103/ul Critically high 4.0-11.0 [facility] Comment on above: Performed By: #### A 1C #### [facility] [address] [address] [address] David Magana PROF 14(COMP METB)on 022 Albumin [Mass/Vol] 2.6 g/dL Critically low 3.4-5.0 [facility] Comment on above: Performed By: #### M G, BMP, PHOS #### [facility] [address] [address] [address] David Magana Albumin/Globulin [Mass ratio] 0.9 {ratio} Normal [facility] Comment on above: Performed By: #### M G, BMP, PHOS #### [facility] [address] [address] [address] David Magana ALP [Catalytic activity/Vol] 49 U/L Normal 46-116 [facility] Comment on above: Performed By: #### M G, BMP, PHOS #### [facility] [address] [address] [address] David Magana ALT [Catalytic activity/Vol] 25 U/L Normal 16-63 [facility] Comment on above: Performed By: #### M G, BMP, PHOS #### [facility] [address] [address] [address] David Magana Anion gap [Moles/Vol] 12.8 mmol/L Normal [facility] Comment on above: Performed By: #### M G, BMP, PHOS #### [facility] [address] [address] [address] David Magana AST [Catalytic activity/Vol] 9 U/L Critically low 15-37 [facility] Comment on above: Performed By: #### M G, BMP, PHOS #### [facility] [address] [address] [address] David Magana Bilirubin [Mass/Vol] 0.5 mg/dL Normal 0.2-1.0 [facility] Comment on above: Performed By: #### M G, BMP, PHOS #### [facility] [address] [address] [address] David Magana Calcium [Mass/Vol] 8.3 mg/dL Critically low 8.5-10.1 [facility] Comment on above: Performed By: #### M Marcell, BMP, PHOS #### [facility] [address] [address] [address] David Magana Chloride [Moles/Vol] 105 mmol/L Normal 98-107 [facility] Comment on above: Performed By: #### M Marcell BMP, PHOS #### [facility] [address] [place] [address] Dr. David Magana CO2 [Moles/Vol] 24.2 mmol/L Normal 21.0-32.0 [facility] Comment on above: Performed By: #### M ERICK Faith, PHOS #### [facility] [address] [place] [address] Dr. David Magana Creatinine [Mass/Vol] 1.28 mg/dL Normal 0.70-1.30 [facility] Comment on above: Performed By: #### ERICK Jacques, PHOS #### [facility] [address] [place] [address] Dr. David Magana EGFR-AF KOSOVAN >60 Normal >=60 [facility] Comment on above: Performed By: #### ERICK Jacques, PHOS #### [facility] [address] [place] [address] Dr. David Magana EGFR-NON AF KOSOVAN 54 mL/min/1.73m2 Critically low >=60 [facility] Comment on above: Performed By: #### ERICK Jacques, PHOS #### [facility] [address] [place] [address] Dr. David Magana Globulin (S) [Mass/Vol] 2.9 g/dL Normal [facility] Comment on above: Performed By: #### M ERICK Faith, PHOS #### [facility] [address] [place] [address] Dr. David Magana Glucose [Mass/Vol] 205 mg/dL Critically high 74-106 [facility] [place] Comment on above: Performed By: #### ERICK Jacques, PHOS #### [facility] [address] [place] [address] Dr. David Magana Potassium [Moles/Vol] 4.0 mmol/L Normal 3.5-5.1 [facility] Comment on above: Performed By: #### M ERICK Faith, PHOS #### [facility] [address] [place] [address] Dr. David Magana Protein [Mass/Vol] 5.5 g/dL Critically low 6.4-8.2 [facility] Comment on above: Performed By: #### M ERICK Faith, PHOS #### [facility] [address] [place] [address] Dr. David Magana Sodium [Moles/Vol] 138 mmol/L Normal 136-145 [facility] Comment on above: Performed By: #### M ERICK Faith, PHOS #### [facility] [address] [place] [address] Dr. David Magana Urea nitrogen [Mass/Vol] 36.0 mg/dL Critically high 7.0-18.0 [facility] Comment on above: Performed By: #### ERICK Jacques, PHOS #### [facility] [address] [place] [address] Dr. David Magana Urea nitrogen/Creatinine [Mass ratio] 28.1 mg/mg Normal [facility] Comment on above: Performed By: #### ERICK Jacques, PHOS #### [facility] [address] [place] [address] Dr. David Magana BNPon 07-21-2022 Natriuretic peptide B (Bld) [Mass/Vol] 3485.0 pg/mL Critically high <=1,800.0 [facility] Comment on above: Result Comment: repe ated Performed By: #### A 1C #### [facility] [address] [place] [address] Dr. David Magana CBC AUTO DIFFon 07-21-2022 BASO # 0.0 103/ul Normal 0.0-0.1 [facility] Comment on above: Performed By: #### C BC #### [facility] [address] [place] [address] Dr. David Magana Basophils/100 WBC (Bld) 0.3 % Normal 0.2-2.0 [facility] Comment on above: Performed By: #### C BC #### [facility] [address] [place] [address] Dr. David Magana EO # 0.2 103/ul Normal 0.0-0.7 [facility] Comment on above: Performed By: #### C BC #### [facility] [address] [place] [address] Dr. David Magana Eosinophils/100 WBC (Bld) 1.9 % Normal 0.9-7.0 [facility] Comment on above: Performed By: #### C BC #### [facility] [address] [place] [address] Dr. David Magana Erythrocyte distribution width (RBC) [Ratio] 13.4 % Normal 11.0-15.0 [facility] Comment on above: Performed By: #### C BC #### [facility] [address] [place] [address] Dr. David Magana Hematocrit (Bld) [Volume fraction] 42.5 % Normal 42.0-54.0 [facility] Comment on above: Performed By: #### C BC #### [facility] [address] [place] [address] Dr. David Magana Hemoglobin (Bld) [Mass/Vol] 14.2 g/dL Normal 14.0-18.0 [facility] Comment on above: Performed By: #### C BC #### [facility] [address] [place] [address] Dr. David Magana IG # 0.22 10e3/ul Critically high 0.00-0.03 [facility] Comment on above: Performed By: #### C BC #### [facility] [address] [place] [address] Dr. David Magana IG % 2.1 % Critically high 0.0-0.5 [facility] Comment on above: Performed By: #### C BC #### [facility] [address] [place] [address] Dr. David Magana LYMPH # 0.8 103/ul Critically low 1.2-3.8 [facility] Comment on above: Performed By: #### C BC #### [facility] [address] [place] [address] Dr. David Magana Lymphocytes/100 WBC (Bld) 7.7 % Critically low 20.5-60.0 [facility] Comment on above: Performed By: #### C BC #### [facility] [address] [place] [address] Dr. David Magana MANUAL DIFF REQ NO Normal [facility] Comment on above: Performed By: #### C BC #### [facility] [address] [place] [address] Dr. David Magana MCH (RBC) [Entitic mass] 33.0 pg Normal 25.9-34.0 [facility] Comment on above: Performed By: #### C BC #### [facility] [address] [place] [address] Dr. David Magana MCHC (RBC) [Mass/Vol] 33.4 g/dL Normal 29.9-35.2 [facility] Comment on above: Performed By: #### C BC #### [facility] [address] [place] [address] Dr. David Magana MCV (RBC) [Entitic vol] 98.8 fL Critically high 80.0-94.0 [facility] Comment on above: Performed By: #### C BC #### [facility] [address] [place] [address] Dr. David Magana MONO # 1.0 103/ul Critically high 0.3-0.8 [facility] Comment on above: Performed By: #### C BC #### [facility] [address] [place] [address] Dr. David Magana Monocytes/100 WBC (Bld) 9.7 % Normal 1.7-12.0 [facility] Comment on above: Performed By: #### C BC #### [facility] [address] [place] [address] Dr. David Magana NEUT # 8.1 103/ul Critically high 1.4-6.5 [facility] Comment on above: Performed By: #### C BC #### [facility] [address] [address] [address] David Magana Neutrophils/100 WBC (Bld) 78.3 % Critically high 43.0-75.0 [facility] Comment on above: Performed By: #### C BC #### [facility] [address] [address] [address] David Magana Platelet mean volume (Bld) [Entitic vol] 10.7 fL Normal 9.5-13.5 [facility] Comment on above: Performed By: #### C BC #### [facility] [address] [place] [address] Dr. David Magana PLT 177 103/ul Normal 150-450 [facility] Comment on above: Performed By: #### C BC #### [facility] [address] [place] [address] Dr. David Magana RBC 4.30 106/ul Critically low 4.70-6.10 [facility] Comment on above: Performed By: #### C BC #### [facility] [address] [place] [address] Dr. David Magana WBC 10.4 103/ul Normal 4.0-11.0 [facility] Comment on above: Performed By: #### C BC #### [facility] [address] [place] [address] Dr. David Magana PROF 14(COMP METB)on 022 Albumin [Mass/Vol] 2.6 g/dL Critically low 3.4-5.0 [facility] Comment on above: Performed By: #### A 1C #### [facility] [address] [place] [address] Dr. David Magana Albumin/Globulin [Mass ratio] 1.0 {ratio} Normal [facility] Comment on above: Performed By: #### A 1C #### [facility] [address] [place] [address] Dr. David Magana ALP [Catalytic activity/Vol] 50 U/L Normal 46-116 [facility] Comment on above: Performed By: #### A 1C #### [facility] [address] [address] [address] David Magana ALT [Catalytic activity/Vol] 28 U/L Normal 16-63 [facility] Comment on above: Performed By: #### A 1C #### [facility] [address] [address] [address] David Magana Anion gap [Moles/Vol] 11.4 mmol/L Normal [facility] Comment on above: Performed By: #### A 1C #### [facility] [address] [address] [address] David Magana AST [Catalytic activity/Vol] 13 U/L Critically low 15-37 [facility] Comment on above: Performed By: #### A 1C #### [facility] [address] [address] [address] David Magana Bilirubin [Mass/Vol] 0.4 mg/dL Normal 0.2-1.0 [facility] Comment on above: Performed By: #### A 1C #### [facility] [address] [address] [address] David Magana Calcium [Mass/Vol] 8.4 mg/dL Critically low 8.5-10.1 [facility] Comment on above: Performed By: #### A 1C #### [facility] [address] [address] [address] David Magana Chloride [Moles/Vol] 107 mmol/L Normal 98-107 [facility] Comment on above: Performed By: #### A 1C #### [facility] [address] [address] [address] David Magana CO2 [Moles/Vol] 24.6 mmol/L Normal 21.0-32.0 [facility] Comment on above: Performed By: #### A 1C #### [facility] [address] [address] [address] David Magana Creatinine [Mass/Vol] 1.26 mg/dL Normal 0.70-1.30 [facility] Comment on above: Performed By: #### A 1C #### [facility] [address] [address] [address] David Magana EGFR-AF KOSOVAN >60 Normal >=60 [facility] Comment on above: Performed By: #### A 1C #### [facility] [address] [address] [address] David Magana EGFR-NON AF KOSOVAN 55 mL/min/1.73m2 Critically low >=60 [facility] Comment on above: Performed By: #### A 1C #### [facility] [address] [address] [address] David Magana Globulin (S) [Mass/Vol] 2.7 g/dL Normal [facility] Comment on above: Performed By: #### A 1C #### [facility] [address] [address] [address] David Magana Glucose [Mass/Vol] 203 mg/dL Critically high 74-106 [facility] Comment on above: Performed By: #### A 1C #### [facility] [address] [address] [address] David Magana Potassium [Moles/Vol] 4.0 mmol/L Normal 3.5-5.1 [facility] Comment on above: Performed By: #### A 1C #### [facility] [address] [address] [address] David Magana Protein [Mass/Vol] 5.3 g/dL Critically low 6.4-8.2 [facility] Comment on above: Performed By: #### A 1C #### [facility] [address] [address] [address] David Magana Sodium [Moles/Vol] 139 mmol/L Normal 136-145 [facility] Comment on above: Performed By: #### A 1C #### [facility] [address] [address] [address] David Magana Urea nitrogen [Mass/Vol] 33.0 mg/dL Critically high 7.0-18.0 [facility] Comment on above: Performed By: #### A 1C #### [facility] [address] [place] [address] Dr. David Magana Urea nitrogen/Creatinine [Mass ratio] 26.2 mg/mg Normal [facility] Comment on above: Performed By: #### A 1C #### [facility] [address] [place] [address] Dr. David Magana BNPon 07-20-2022 Natriuretic peptide B (Bld) [Mass/Vol] 7478.0 pg/mL Critically high <=1,800.0 [facility] Comment on above: Performed By: #### A 1C #### [facility] [address] [place] [address] Dr. David Magana CBC AUTO DIFFon 07-20-2022 BASO # 0.1 103/ul Normal 0.0-0.1 [facility] Comment on above: Performed By: #### M Marcell BMP, PHOS #### [facility] [address] [place] [address] Dr. David Magana Basophils/100 WBC (Bld) 0.8 % Normal 0.2-2.0 [facility] Comment on above: Performed By: #### M G BMP, PHOS #### [facility] [address] [place] [address] Dr. David Magana EO # 0.1 103/ul Normal 0.0-0.7 [facility] Comment on above: Performed By: #### M G BMP, PHOS #### [facility] [address] [place] [address] Dr. David Magana Eosinophils/100 WBC (Bld) 0.6 % Critically low 0.9-7.0 [facility] Comment on above: Performed By: #### M G, BMP, PHOS #### [facility] [address] [place] [address] Dr. David Magana Erythrocyte distribution width (RBC) [Ratio] 13.4 % Normal 11.0-15.0 [facility] Comment on above: Performed By: #### M G, BMP, PHOS #### [facility] [address] [place] [address] Dr. David Magana Hematocrit (Bld) [Volume fraction] 43.2 % Normal 42.0-54.0 [facility] Comment on above: Performed By: #### ERICK Jacques, PHOS #### [facility] [address] [place] [address] Dr. David Magana Hemoglobin (Bld) [Mass/Vol] 14.2 g/dL Normal 14.0-18.0 [facility] Comment on above: Performed By: #### ERICK Jacques, PHOS #### [facility] [address] [place] [address] Dr. David Magana IG # 0.21 10e3/ul Critically high 0.00-0.03 [facility] Comment on above: Performed By: #### M ERICK Faith, PHOS #### [facility] [address] [place] [address] Dr. David Magana IG % 2.0 % Critically high 0.0-0.5 [facility] Comment on above: Performed By: #### ERICK Jacques, PHOS #### [facility] [address] [place] [address] Dr. David Magana LYMPH # 0.8 103/ul Critically low 1.2-3.8 [facility] Comment on above: Performed By: #### ERICK Jacques, PHOS #### [facility] [address] [place] [address] Dr. David Magana Lymphocytes/100 WBC (Bld) 7.7 % Critically low 20.5-60.0 [facility] Comment on above: Performed By: #### ERICK Jacques, PHOS #### [facility] [address] [place] [address] Dr. David Magana MANUAL DIFF REQ NO Normal [facility] Comment on above: Performed By: #### M ERICK Faith, PHOS #### [facility] [address] [place] [address] Dr. David Magana MCH (RBC) [Entitic mass] 33.2 pg Normal 25.9-34.0 [facility] Comment on above: Performed By: #### M ERICK Faith, PHOS #### [facility] [address] [place] [address] Dr. David Magana MCHC (RBC) [Mass/Vol] 32.9 g/dL Normal 29.9-35.2 [facility] Comment on above: Performed By: #### M G, BMP, PHOS #### [facility] [address] [place] [address] Dr. David Magana MCV (RBC) [Entitic vol] 100.9 fL Critically high 80.0-94.0 [facility] Comment on above: Performed By: #### M G, BMP, PHOS #### [facility] [address] [place] [address] Dr. David Magana MONO # 1.0 103/ul Critically high 0.3-0.8 [facility] Comment on above: Performed By: #### M G, BMP, PHOS #### [facility] [address] [place] [address] Dr. David Magana Monocytes/100 WBC (Bld) 10.0 % Normal 1.7-12.0 [facility] Comment on above: Performed By: #### M Marcell, BMP, PHOS #### [facility] [address] [place] [address] Dr. David Magana NEUT # 8.1 103/ul Critically high 1.4-6.5 [facility] Comment on above: Performed By: #### M Marcell, BMP, PHOS #### [facility] [address] [place] [address] Dr. David Magana Neutrophils/100 WBC (Bld) 78.9 % Critically high 43.0-75.0 [facility] Comment on above: Performed By: #### M G, BMP, PHOS #### [facility] [address] [place] [address] Dr. David Magana Platelet mean volume (Bld) [Entitic vol] 10.8 fL Normal 9.5-13.5 [facility] Comment on above: Performed By: #### M G, BMP, PHOS #### [facility] [address] [address] [address] David Magana PLT 172 103/ul Normal 150-450 [facility] Comment on above: Performed By: #### ERICK Jacques, PHOS #### [facility] [address] [address] [address] David Magana RBC 4.28 106/ul Critically low 4.70-6.10 [facility] Comment on above: Performed By: #### ERICK Jacques, PHOS #### [facility] [address] [address] [address] David Magana WBC 10.3 103/ul Normal 4.0-11.0 [facility] Comment on above: Performed By: #### ERICK Jacques, PHOS #### [facility] [address] [place] [address] Dr. David Magana CULTURE URINEon 07-20-2022 CULTURE [...] F Trimethoprim/Sulfame thoxazole >=320 R F Normal [facility] Comment on above: Performed By: #### ERICK Jacques, PHOS #### [facility] [address] [place] [address] Dr. David Magana PROF 14(COMP METB)on 022 Albumin [Mass/Vol] 2.6 g/dL Critically low 3.4-5.0 [facility] Comment on above: Performed By: #### A 1C #### [facility] [address] [place] [address] Dr. David Magana Albumin/Globulin [Mass ratio] 0.9 {ratio} Normal [facility] Comment on above: Performed By: #### A 1C #### [facility] [address] [address] [address] David Magana ALP [Catalytic activity/Vol] 48 U/L Normal 46-116 [facility] Comment on above: Performed By: #### A 1C #### [facility] [address] [place] [address] Dr. David Magana ALT [Catalytic activity/Vol] 27 U/L Normal 16-63 [facility] Comment on above: Performed By: #### A 1C #### [facility] [address] [place] [address] Dr. David Magana Anion gap [Moles/Vol] 13.4 mmol/L Normal [facility] Comment on above: Performed By: #### A 1C #### [facility] [address] [place] [address] Dr. David Magana AST [Catalytic activity/Vol] 22 U/L Normal 15-37 [facility] Comment on above: Performed By: #### A 1C #### [facility] [address] [place] [address] Dr. David Magana Bilirubin [Mass/Vol] 0.5 mg/dL Normal 0.2-1.0 [facility] Comment on above: Performed By: #### A 1C #### [facility] [address] [place] [address] Dr. David Magana Calcium [Mass/Vol] 8.3 mg/dL Critically low 8.5-10.1 [facility] Comment on above: Performed By: #### A 1C #### [facility] [address] [place] [address] Dr. David Magana Chloride [Moles/Vol] 105 mmol/L Normal 98-107 [facility] Comment on above: Performed By: #### A 1C #### [facility] [address] [place] [address] Dr. David aMgana CO2 [Moles/Vol] 21.0 mmol/L Normal 21.0-32.0 [facility] Comment on above: Performed By: #### A 1C #### [facility] [address] [address] [address] David Magana Creatinine [Mass/Vol] 1.38 mg/dL Critically high 0.70-1.30 [facility] Comment on above: Performed By: #### A 1C #### [facility] [address] [address] [address] David Magana EGFR-AF KOSOVAN 60 mL/min/1.73m2 Normal >=60 [facility] Comment on above: Performed By: #### A 1C #### [facility] [address] [address] [address] David Magana EGFR-NON AF KOSOVAN 49 mL/min/1.73m2 Critically low >=60 [facility] Comment on above: Performed By: #### A 1C #### [facility] [address] [address] [address] David Magana Globulin (S) [Mass/Vol] 2.8 g/dL Normal [facility] Comment on above: Performed By: #### A 1C #### [facility] [address] [address] [address] David Magana Glucose [Mass/Vol] 156 mg/dL Critically high 74-106 [facility] Comment on above: Performed By: #### A 1C #### [facility] [address] [address] [address] David Magana Potassium [Moles/Vol] 4.4 mmol/L Normal 3.5-5.1 [facility] Comment on above: Performed By: #### A 1C #### [facility] [address] [address] [address] David Magana Protein [Mass/Vol] 5.4 g/dL Critically low 6.4-8.2 [facility] Comment on above: Performed By: #### A 1C #### [facility] [address] [address] [address] David Magana Sodium [Moles/Vol] 135 mmol/L Critically low 136-145 [facility] Comment on above: Performed By: #### A 1C #### [facility] [address] [place] [address] Dr. David Magana Urea nitrogen [Mass/Vol] 40.0 mg/dL Critically high 7.0-18.0 [facility] Comment on above: Performed By: #### A 1C #### [facility] [address] [place] [address] Dr. David Magana Urea nitrogen/Creatinine [Mass ratio] 29.0 mg/mg Normal [facility] Comment on above: Performed By: #### A 1C #### [facility] [address] [place] [address] Dr. David Magana BNPon 07-19-2022 Natriuretic peptide B (Bld) [Mass/Vol] 52840.0 pg/mL Critically high <=1,800.0 [facility] Comment on above: Performed By: #### C VDTB #### [facility] [address] [place] [address] Dr. David Magana CBC AUTO DIFFon 07-19-2022 BASO # 0.0 103/ul Normal 0.0-0.1 [facility] Comment on above: Performed By: #### C BC #### [facility] [address] [place] [address] Dr. David Magana Basophils/100 WBC (Bld) 0.3 % Normal 0.2-2.0 [facility] Comment on above: Performed By: #### C BC #### [facility] [address] [place] [address] Dr. David Magana EO # 0.0 103/ul Normal 0.0-0.7 [facility] Comment on above: Performed By: #### C BC #### [facility] [address] [place] [address] Dr. David Magana Eosinophils/100 WBC (Bld) 0.2 % Critically low 0.9-7.0 [facility] Comment on above: Performed By: #### C BC #### [facility] [address] [place] [address] Dr. David Magana Erythrocyte distribution width (RBC) [Ratio] 13.4 % Normal 11.0-15.0 [facility] Comment on above: Performed By: #### C BC #### [facility] [address] [address] [address] David Magana Hematocrit (Bld) [Volume fraction] 43.4 % Normal 42.0-54.0 [facility] Comment on above: Performed By: #### C BC #### [facility] [address] [address] [address] David Magana Hemoglobin (Bld) [Mass/Vol] 14.6 g/dL Normal 14.0-18.0 [facility] Comment on above: Performed By: #### C BC #### [facility] [address] [place] [address] Dr. David Magana IG # 0.18 10e3/ul Critically high 0.00-0.03 [facility] Comment on above: Performed By: #### C BC #### [facility] [address] [place] [address] Dr. David Magana IG % 1.5 % Critically high 0.0-0.5 [facility] Comment on above: Performed By: #### C BC #### [facility] [address] [place] [address] Dr. David Magana LYMPH # 0.8 103/ul Critically low 1.2-3.8 [facility] Comment on above: Performed By: #### C BC #### [facility] [address] [place] [address] Dr. David Magana Lymphocytes/100 WBC (Bld) 6.6 % Critically low 20.5-60.0 [facility] Comment on above: Performed By: #### C BC #### [facility] [address] [address] [address] David Magana MANUAL DIFF REQ NO Normal [facility] Comment on above: Performed By: #### C BC #### [facility] [address] [place] [address] Dr. David Magana MCH (RBC) [Entitic mass] 33.7 pg Normal 25.9-34.0 [facility] Comment on above: Performed By: #### C BC #### [facility] [address] [address] [address] David Magana MCHC (RBC) [Mass/Vol] 33.6 g/dL Normal 29.9-35.2 [facility] Comment on above: Performed By: #### C BC #### [facility] [address] [address] [address] David Magana MCV (RBC) [Entitic vol] 100.2 fL Critically high 80.0-94.0 [facility] Comment on above: Performed By: #### C BC #### [facility] [address] [address] [address] David Magana MONO # 1.1 103/ul Critically high 0.3-0.8 [facility] Comment on above: Performed By: #### C BC #### [facility] [address] [place] [address] Dr. David Magana Monocytes/100 WBC (Bld) 9.3 % Normal 1.7-12.0 [facility] Comment on above: Performed By: #### C BC #### [facility] [address] [address] [address] David Magana NEUT # 9.6 103/ul Critically high 1.4-6.5 [facility] Comment on above: Performed By: #### C BC #### [facility] [address] [address] [address] David Magana Neutrophils/100 WBC (Bld) 82.1 % Critically high 43.0-75.0 [facility] Comment on above: Performed By: #### C BC #### [facility] [address] [address] [address] David Magana Platelet mean volume (Bld) [Entitic vol] 10.8 fL Normal 9.5-13.5 [facility] Comment on above: Performed By: #### C BC #### [facility] [address] [address] [address] David Magana PLT 202 103/ul Normal 150-450 [facility] Comment on above: Performed By: #### C BC #### [facility] [address] [address] [address] David Magana RBC 4.33 106/ul Critically low 4.70-6.10 [facility] Comment on above: Performed By: #### C BC #### [facility] [address] [address] [address] David Magana WBC 11.7 103/ul Critically high 4.0-11.0 [facility] Comment on above: Performed By: #### C BC #### [facility] [address] [address] [address] David Magana PROF 14(COMP METB)on 022 Albumin [Mass/Vol] 3.4 g/dL Normal 3.4-5.0 [facility] Comment on above: Performed By: #### A 1C #### [facility] [address] [place] [address] Dr. David Magana Albumin/Globulin [Mass ratio] 1.1 {ratio} Normal [facility] Comment on above: Performed By: #### A 1C #### [facility] [address] [place] [address] Dr. David Magana ALP [Catalytic activity/Vol] 63 U/L Normal 46-116 [facility] Comment on above: Performed By: #### A 1C #### [facility] [address] [place] [address] Dr. David Magana ALT [Catalytic activity/Vol] 34 U/L Normal 16-63 [facility] Comment on above: Performed By: #### A 1C #### [facility] [address] [place] [address] Dr. David Magana Anion gap [Moles/Vol] 20.9 mmol/L Normal [facility] Comment on above: Performed By: #### A 1C #### [facility] [address] [place] [address] Dr. David Magana AST [Catalytic activity/Vol] 18 U/L Normal 15-37 [facility] Comment on above: Performed By: #### A 1C #### [facility] [address] [address] [address] David Magana Bilirubin [Mass/Vol] 0.5 mg/dL Normal 0.2-1.0 [facility] Comment on above: Performed By: #### A 1C #### [facility] [address] [address] [address] David Magana Calcium [Mass/Vol] 8.5 mg/dL Normal 8.5-10.1 [facility] Comment on above: Performed By: #### A 1C #### [facility] [address] [address] [address] David Magana Chloride [Moles/Vol] 99 mmol/L Normal 98-107 [facility] Comment on above: Performed By: #### A 1C #### [facility] [address] [address] [address] David Magana CO2 [Moles/Vol] 19.1 mmol/L Critically low 21.0-32.0 [facility] Comment on above: Performed By: #### A 1C #### [facility] [address] [address] [address] David Magana Creatinine [Mass/Vol] 1.80 mg/dL Critically high 0.70-1.30 [facility] Comment on above: Performed By: #### A 1C #### [facility] [address] [address] [address] David Magana EGFR-AF KOSOVAN 44 mL/min/1.73m2 Critically low >=60 [facility] Comment on above: Performed By: #### A 1C #### [facility] [address] [address] [address] David Magana EGFR-NON AF KOSOVAN 36 mL/min/1.73m2 Critically low >=60 [facility] Comment on above: Performed By: #### A 1C #### [facility] [address] [address] [address] David Magana Globulin (S) [Mass/Vol] 3.2 g/dL Normal [facility] Comment on above: Performed By: #### A 1C #### [facility] [address] [address] [address] David Magana Glucose [Mass/Vol] 287 mg/dL Critically high 74-106 [facility] [facility] Comment on above: Performed By: #### A 1C #### [facility] [address] [place] [address] Dr. David Magana Potassium [Moles/Vol] 5.0 mmol/L Normal 3.5-5.1 [facility] Comment on above: Performed By: #### A 1C #### [facility] [address] [place] [address] Dr. David Magana Protein [Mass/Vol] 6.6 g/dL Normal 6.4-8.2 [facility] Comment on above: Performed By: #### A 1C #### [facility] [address] [place] [address] Dr. David Magana Sodium [Moles/Vol] 134 mmol/L Critically low 136-145 [facility] Comment on above: Performed By: #### A 1C #### [facility] [address] [place] [address] Dr. David Magana Urea nitrogen [Mass/Vol] 51.0 mg/dL Critically high 7.0-18.0 [facility] Comment on above: Performed By: #### A 1C #### [facility] [address] [place] [address] Dr. David Magana Urea nitrogen/Creatinine [Mass ratio] 28.3 mg/mg Normal [facility] Comment on above: Performed By: #### A 1C #### [facility] [address] [place] [address] Dr. David Magana BLOOD GASES BTYon 07-18-2022 02 MODE NASAL CANNULA Normal [facility] Comment on above: Performed By: #### A 1C #### [facility] [address] [place] [address] Dr. David Magana ALLENNishi TEST Positive Normal [facility] Comment on above: Performed By: #### A 1C #### [facility] [address] [place] [address] Dr. David Magana Base excess Calc (Bld) [Moles/Vol] -9.0000 mmol/L Critically low -2.0-2.0 [facility] Comment on above: Performed By: #### A 1C #### [facility] [address] [place] [address] Dr. David Magana BIPAP PRESSURE Normal [facility] Comment on above: Performed By: #### A 1C #### [facility] [address] [place] [address] Dr. David Magana CPAP [facility] Comment on above: Performed By: #### A 1C #### [facility] [address] [place] [address] Dr. David Magana FIO2 [facility] Comment on above: Performed By: #### A 1C #### [facility] [address] [place] [address] Dr. David Magana HCO3 (Bld) [Moles/Vol] 18.4 mmol/L Critically low 22.0-26.0 [facility] Comment on above: Performed By: #### A 1C #### [facility] [address] [place] [address] Dr. David Magana LPM 1.5 Normal [facility] Comment on above: Performed By: #### A 1C #### [facility] [address] [place] [address] Dr. David Magana MINUTE VOLUME Normal [facility] Comment on above: Performed By: #### A 1C #### [facility] [address] [place] [address] Dr. David Magana Oxygen (Bld) [Partial pressure] 69.5 mm[Hg] Critically low 80.0-100.0 [facility] Comment on above: Performed By: #### A 1C #### [facility] [address] [place] [address] Dr. David Magana Oxygen saturation in Blood 94.2 % Critically low 95.0-100.0 [facility] Comment on above: Performed By: #### A 1C #### [facility] [address] [place] [address] Dr. David Magana PCO2 29.6 mmHg Critically low 35.0-45.0 [facility] Comment on above: Performed By: #### A 1C #### [facility] [address] [place] [address] Dr. David Magana [facility] Comment on above: Performed By: #### A 1C #### [facility] [address] [place] [address] Dr. David Magana pH (Bld) 7.355 [pH] Normal 7.350-7.450 [facility] Comment on above: Performed By: #### A 1C #### [facility] [address] [place] [address] Dr. David Magana [facility] Comment on above: Performed By: #### A 1C #### [facility] [address] [place] [address] Dr. David Magana [facility] Comment on above: Performed By: #### A 1C #### [facility] [address] [place] [address] Dr. David Magana PUNCTURE SITE LR [facility] Comment on above: Performed By: #### A 1C #### [facility] [address] [place] [address] Dr. David Magana RATE [facility] Comment on above: Performed By: #### A 1C #### [facility] [address] [place] [address] Dr. David Magana VENT MODE [facility] Comment on above: Performed By: #### A 1C #### [facility] [address] [place] [address] Dr. David Magana [facility] Comment on above: Performed By: #### A 1C #### [facility] [address] [place] [address] Dr. David Magana BNPon 07-18-2022 Natriuretic peptide B (Bld) [Mass/Vol] 7047.0 pg/mL Critically high <=1,800.0 [facility] Comment on above: Performed By: #### C VDTB #### [facility] [address] [address] [address] David Magana CARDIAC BARRIE 3-6on 2 CK [Catalytic activity/Vol] 396 U/L Critically high 39-308 [facility] Comment on above: Performed By: #### M G, BMP, PHOS #### [facility] [address] [address] [address] David Magana CK.MB [Mass/Vol] 2.94 ng/mL Normal <=3.60 [facility] Comment on above: Performed By: #### M G, BMP, PHOS #### [facility] [address] [address] [address] David Magana HSTROP 11.1 pg/mL Normal 4.0-76.1 [facility] Comment on above: Result Comment: CUT- OFF POINTS HAVE BEEN ESTABLISHED BASED ON THE FOURTH UNIVERSAL DEFINITIONS OF MYOCARDIAL INFARCTION. THE UPPER REFERENCE LIMIT (URL) OF TROPONIN, DEFINED THE 99TH PERCENTILE OF cTnI DISTRIBUTION IN A REFERENCE POPULATION, HAS BEEN CONFIRMED THE DECISION THRESHOLD FOR IN DIAGNOSIS. Performed By: #### M G, BMP, PHOS #### [facility] [address] [address] [address] David Magana CK [Catalytic activity/Vol] 58 U/L Normal 39-308 [facility] Comment on above: Performed By: #### M G, BMP, PHOS #### [facility] [address] [address] [address] David Magana CK.MB [Mass/Vol] 1.71 ng/mL Normal <=3.60 [facility] Comment on above: Performed By: #### M G, BMP, PHOS #### [facility] [address] [address] [address] David Magana HSTROP 10.6 pg/mL Normal 4.0-76.1 [facility] Comment on above: Result Comment: CUT- OFF POINTS HAVE BEEN ESTABLISHED BASED ON THE FOURTH UNIVERSAL DEFINITIONS OF MYOCARDIAL INFARCTION. THE UPPER REFERENCE LIMIT (URL) OF TROPONIN, DEFINED THE 99TH PERCENTILE OF cTnI DISTRIBUTION IN A REFERENCE POPULATION, HAS BEEN CONFIRMED THE DECISION THRESHOLD FOR IN DIAGNOSIS. Performed By: #### M G BMP, PHOS #### [facility] [address] [place] [address] Dr. David Magana CBC AUTO DIFFon 07-18-2022 BASO # 0.0 103/ul Normal 0.0-0.1 [facility] Comment on above: Performed By: #### M G, BMP, PHOS #### [facility] [address] [place] [address] Dr. David Magana Basophils/100 WBC (Bld) 0.2 % Normal 0.2-2.0 [facility] Comment on above: Performed By: #### M G, BMP, PHOS #### [facility] [address] [place] [address] Dr. David Magana EO # 0.0 103/ul Normal 0.0-0.7 [facility] Comment on above: Performed By: #### M Marcell BMP, PHOS #### [facility] [address] [place] [address] Dr. David Magana Eosinophils/100 WBC (Bld) 0.2 % Critically low 0.9-7.0 [facility] Comment on above: Performed By: #### M ERICK Faith, PHOS #### [facility] [address] [place] [address] Dr. David Magana Erythrocyte distribution width (RBC) [Ratio] 13.2 % Normal 11.0-15.0 [facility] Comment on above: Performed By: #### M ERICK Faith, PHOS #### [facility] [address] [place] [address] Dr. David Magana Hematocrit (Bld) [Volume fraction] 43.8 % Normal 42.0-54.0 [facility] Comment on above: Performed By: #### M ERICK Faith, PHOS #### [facility] [address] [place] [address] Dr. David Magana Hemoglobin (Bld) [Mass/Vol] 14.5 g/dL Normal 14.0-18.0 [facility] Comment on above: Performed By: #### M Marcell BMP, PHOS #### [facility] [address] [address] [address] David Magana IG # 0.15 10e3/ul Critically high 0.00-0.03 [facility] Comment on above: Performed By: #### M Marcell, BMP, PHOS #### [facility] [address] [address] [address] David Magana IG % 1.3 % Critically high 0.0-0.5 [facility] Comment on above: Performed By: #### M G, BMP, PHOS #### [facility] [address] [place] [address] Dr. David Magana LYMPH # 0.5 103/ul Critically low 1.2-3.8 [facility] Comment on above: Performed By: #### M G, BMP, PHOS #### [facility] [address] [place] [address] Dr. David Maagna Lymphocytes/100 WBC (Bld) 3.8 % Critically low 20.5-60.0 [facility] Comment on above: Performed By: #### M G, BMP, PHOS #### [facility] [address] [place] [address] Dr. David Magana MANUAL DIFF REQ NO Normal [facility] Comment on above: Performed By: #### M G, BMP, PHOS #### [facility] [address] [place] [address] Dr. David Magana MCH (RBC) [Entitic mass] 32.7 pg Normal 25.9-34.0 [facility] Comment on above: Performed By: #### M G, BMP, PHOS #### [facility] [address] [place] [address] Dr. David Magana MCHC (RBC) [Mass/Vol] 33.1 g/dL Normal 29.9-35.2 [facility] Comment on above: Performed By: #### M G, BMP, PHOS #### [facility] [address] [place] [address] Dr. David Magana MCV (RBC) [Entitic vol] 98.9 fL Critically high 80.0-94.0 [facility] Comment on above: Performed By: #### M ERICK Faith, PHOS #### [facility] [address] [place] [address] Dr. David Magana MONO # 0.7 103/ul Normal 0.3-0.8 [facility] Comment on above: Performed By: #### M ERICK Faith, PHOS #### [facility] [address] [place] [address] Dr. David Magana Monocytes/100 WBC (Bld) 5.7 % Normal 1.7-12.0 [facility] Comment on above: Performed By: #### M ERICK Faith, PHOS #### [facility] [address] [place] [address] Dr. David Magana NEUT # 10.4 103/ul Critically high 1.4-6.5 [facility] Comment on above: Performed By: #### ERICK Jacques, PHOS #### [facility] [address] [place] [address] Dr. David Magana Neutrophils/100 WBC (Bld) 88.8 % Critically high 43.0-75.0 [facility] Comment on above: Performed By: #### ERICK Jacques, PHOS #### [facility] [address] [place] [address] Dr. David Magana Platelet mean volume (Bld) [Entitic vol] 11.0 fL Normal 9.5-13.5 [facility] Comment on above: Performed By: #### ERICK Jacques, PHOS #### [facility] [address] [place] [address] Dr. David Magana PLT 198 103/ul Normal 150-450 [facility] Comment on above: Performed By: #### M ERICK Faith, PHOS #### [facility] [address] [place] [address] Dr. David Magana RBC 4.43 106/ul Critically low 4.70-6.10 [facility] Comment on above: Performed By: #### M ERICK Faith, PHOS #### [facility] [address] [address] [address] David Magana WBC 11.8 103/ul Critically high 4.0-11.0 [facility] Comment on above: Performed By: #### M ERICK Faith PHOS #### [facility] [address] [address] HEAD WO CONon [...] FRANCISCO ZELAYA Date: 2022-07-18 05:12 Normal [facility] Covid-19 PCR ([facility])on SARS-CoV-2 (COVID-19) RNA SULTANA+probe Ql (Unsp spec) Detected Critically abnormal NOT DETECTED [facility] Comment on above: Result Comment: This test is not yet approved or cleared by the [place] FDA. When there are no FDA-approved or cleared tests available, and other criteria are met, FDA can make tests available under an emergency access mechanism called an Emergency Use Authorization (EUA). The EUA for this test is supported by the [place] Health and Human Service's declaration that [...] used). Performed By: #### C VDTB #### [facility] [address] [place] [address] Dr. David Magana D-DIMERon 07-18-2022 D-DIMER 1.69 mg/L FEU Critically high <=0.59 [facility] Comment on above: Performed By: #### C BC #### [facility] [address] [place] [address] Dr. David Magana D-DIMER COMMENTS SEE BELOW Normal [facility] Comment on above: Result Comment: Incr [...] hospitalization. Performed By: #### C BC #### [facility] [address] [place] [address] Dr. David Magana POINT OF CARE GLUCOSEon Glucose [Mass/Vol] 329 mg/dL Critically high 74-106 [facility] Comment on above: Performed By: #### P OCGLUC #### [facility] [address] [place] [address] Dr. David Magana Glucose [Mass/Vol] 354 mg/dL Critically high 74-106 [facility] Comment on above: Performed By: #### P OCGLUC #### [facility] [address] [place] [address] Dr. David Magana PROF 14(COMP METB)on 022 Albumin [Mass/Vol] 3.6 g/dL Normal 3.4-5.0 [facility] Comment on above: Performed By: #### C VDTBH #### [facility] [address] [place] [address] Dr. David Magana Albumin/Globulin [Mass ratio] 1.1 {ratio} Normal [facility] Comment on above: Performed By: #### C VDTBH #### [facility] [address] [address] [address] David Magana ALP [Catalytic activity/Vol] 67 U/L Normal 46-116 [facility] Comment on above: Performed By: #### C VDTBH #### [facility] [address] [address] [address] David Magana ALT [Catalytic activity/Vol] 33 U/L Normal 16-63 [facility] Comment on above: Performed By: #### C VDTBH #### [facility] [address] [address] [address] David Magana Anion gap [Moles/Vol] 23.5 mmol/L Normal [facility] Comment on above: Performed By: #### C VDTBH #### [facility] [address] [place] [address] Dr. David Magana AST [Catalytic activity/Vol] 13 U/L Critically low 15-37 [facility] Comment on above: Performed By: #### C VDTBH #### [facility] [address] [place] [address] Dr. David Magana Bilirubin [Mass/Vol] 0.6 mg/dL Normal 0.2-1.0 [facility] Comment on above: Performed By: #### C VDTBH #### [facility] [address] [address] [address] David Magana Calcium [Mass/Vol] 8.4 mg/dL Critically low 8.5-10.1 [facility] Comment on above: Performed By: #### C VDTBH #### [facility] [address] [address] [address] David Magana Chloride [Moles/Vol] 93 mmol/L Critically low 98-107 [facility] Comment on above: Performed By: #### C VDTBH #### [facility] [address] [address] [address] David Magana CO2 [Moles/Vol] 17.9 mmol/L Critically low 21.0-32.0 [facility] Comment on above: Performed By: #### C VDTBH #### [facility] [address] [place] [address] Dr. David Magana Creatinine [Mass/Vol] 2.15 mg/dL Critically high 0.70-1.30 [facility] Comment on above: Performed By: #### C VDTBH #### [facility] [address] [address] [address] David Magana EGFR-AF KOSOVAN 36 mL/min/1.73m2 Critically low >=60 [facility] Comment on above: Performed By: #### C VDTBH #### [facility] [address] [place] [address] Dr. David Magana EGFR-NON AF KOSOVAN 30 mL/min/1.73m2 Critically low >=60 [facility] Comment on above: Performed By: #### C VDTBH #### [facility] [address] [place] [address] Dr. David Magana Globulin (S) [Mass/Vol] 3.2 g/dL Normal [facility] Comment on above: Performed By: #### C VDTBH #### [facility] [address] [place] [address] Dr. David Magana Glucose [Mass/Vol] 345 mg/dL Critically high 74-106 [facility] [place] Comment on above: Performed By: #### C VDTBH #### [facility] [address] [place] [address] Dr. David Magana Potassium [Moles/Vol] 5.4 mmol/L Critically high 3.5-5.1 [facility] Comment on above: Performed By: #### C VDTBH #### [facility] [address] [place] [address] Dr. David Magana Performed By: #### K #### [facility] [address] [place] [address] Dr. David Magana Protein [Mass/Vol] 6.8 g/dL Normal 6.4-8.2 [facility] Comment on above: Performed By: #### C VDTBH #### [facility] [address] [place] [address] Dr. David Magana Sodium [Moles/Vol] 129 mmol/L Critically low 136-145 [facility] Comment on above: Performed By: #### C VDTBH #### [facility] [address] [place] [address] Dr. David Magana Urea nitrogen [Mass/Vol] 65.0 mg/dL Critically high 7.0-18.0 [facility] Comment on above: Performed By: #### C VDTBH #### [facility] [address] [place] [address] Dr. David Magana Urea nitrogen/Creatinine [Mass ratio] 30.2 mg/mg Normal [facility] Comment on above: Performed By: #### C VDTBH #### [facility] [address] [place] [address] Dr. David Magana UA RANDOM W/MICROSCOPICon BACTERIA NONE SEEN Normal NONE SEEN [facility] Comment on above: Performed By: #### M Marcell BMP, PHOS #### [facility] [address] [place] [address] Dr. David Magana Bilirubin Ql (U) Negative Normal NEGATIVE [facility] Comment on above: Performed By: #### M Marcell BMP, PHOS #### [facility] [address] [place] [address] Dr. David Magana CAST NONE SEEN Normal NONE SEEN [facility] Comment on above: Performed By: #### M Marcell BMP, PHOS #### [facility] [address] [place] [address] Dr. David Magana Clarity (U) CLEAR Normal CLEAR [facility] Comment on above: Performed By: #### M G, BMP, PHOS #### [facility] [address] [place] [address] Dr. David Magana Color (U) LT. YELLOW Normal YELLOW [facility] Comment on above: Performed By: #### M G, BMP, PHOS #### [facility] [address] [place] [address] Dr. David Magana Crystals LM Nom (Urine sed) NONE SEEN Normal NONE SEEN [facility] Comment on above: Performed By: #### M G, BMP, PHOS #### [facility] [address] [address] [address] David Magana Epithelial cells LM Ql (Urine sed) RARE Normal NONE SEEN /RARE [facility] Comment on above: Performed By: #### M G, BMP, PHOS #### [facility] [address] [address] [address] David Magana Glucose Ql (U) 1000 mg/dl Abnormal NEGATIVE [facility] Comment on above: Performed By: #### M G, BMP, PHOS #### [facility] [address] [address] [address] David Magana Hemoglobin Ql (U) Negative Normal NEGATIVE [facility] Comment on above: Performed By: #### M G, BMP, PHOS #### [facility] [address] [place] [address] Dr. David Magana Ketones Ql (U) 15 mg/dl Abnormal NEGATIVE [facility] Comment on above: Performed By: #### M G, BMP, PHOS #### [facility] [address] [address] [address] David Magana LEUKOCYTES Negative Normal NEGATIVE [facility] Comment on above: Performed By: #### M G, BMP, PHOS #### [facility] [address] [address] [address] David Magana MUCOUS NONE SEEN Normal NONE SEEN [facility] Comment on above: Performed By: #### M G, BMP, PHOS #### [facility] [address] [address] [address] David Magana Nitrite Ql (U) Negative Normal NEGATIVE [facility] Comment on above: Performed By: #### M G, BMP, PHOS #### [facility] [address] [address] [address] David Magana pH (U) 5.5 [pH] Normal 5-9 [facility] Comment on above: Performed By: #### M G, BMP, PHOS #### [facility] [address] [address] [address] David Magana RBC NONE SEEN Abnormal 0-2 [facility] Comment on above: Performed By: #### M ERICK Faith, PHOS #### [facility] [address] [place] [address] Dr. David Magana SPEC GRAVITY <=1.005 Abnormal 1.005-<=1.025 [facility] Comment on above: Performed By: #### ERICK Jacques, PHOS #### [facility] [address] [place] [address] Dr. David Magana UA PROTEIN Negative Normal NEGATIVE/ TRACE [facility] Comment on above: Performed By: #### ERICK Jacques, PHOS #### [facility] [address] [place] [address] Dr. David Magana Urobilinogen Qn (U) 0.2 {Dionna'U}/dL Normal 0.2 - 1. 0 [facility] Comment on above: Performed By: #### ERICK Jacques, PHOS #### [facility] [address] [place] [address] Dr. David Magana WBC NONE SEEN Normal NONE SEEN [facility] Comment on above: Performed By: #### ERICK Jacques, PHOS #### [facility] [address] [place] [address] Dr. David Magana XR CHEST 1 Von [...] Yefri DWYER Date: 2022-07-18 00:09 Normal [facility] CARDIAC BARRIE ADMITon 022 CK [Catalytic activity/Vol] 61 U/L Normal 39-308 [facility] Comment on above: Performed By: #### C BC #### [facility] [address] [place] [address] Dr. David Magana CK.MB [Mass/Vol] 1.84 ng/mL Normal <=3.60 [facility] Comment on above: Performed By: #### C BC #### [facility] [address] [place] [address] Dr. David Magana HSTROP 9.4 pg/mL Normal 4.0-76.1 [facility] Comment on above: Result Comment: CUT- OFF POINTS HAVE BEEN ESTABLISHED BASED ON THE FOURTH UNIVERSAL DEFINITIONS OF MYOCARDIAL INFARCTION. THE UPPER REFERENCE LIMIT (URL) OF TROPONIN, DEFINED THE 99TH PERCENTILE OF cTnI DISTRIBUTION IN A REFERENCE POPULATION, HAS BEEN CONFIRMED THE DECISION THRESHOLD FOR IN DIAGNOSIS. Performed By: #### C BC #### [facility] [address] [place] [address] Dr. David Magana DUSTIN 533 ng/mL Critically high 16-96 [facility] Comment on above: Performed By: #### C BC #### [facility] [address] [place] [address] Dr. David Magana CBC AUTO DIFFon 07-17-2022 BASO # 0.0 103/ul Normal 0.0-0.1 [facility] Comment on above: Performed By: #### ERICK Jacques, PHOS #### [facility] [address] [place] [address] Dr. David Magana Basophils/100 WBC (Bld) 0.2 % Normal 0.2-2.0 [facility] Comment on above: Performed By: #### ERICK Jacques, PHOS #### [facility] [address] [place] [address] Dr. David Magana EO # 0.0 103/ul Normal 0.0-0.7 [facility] Comment on above: Performed By: #### ERICK Jacques, PHOS #### [facility] [address] [place] [address] Dr. David Magana Eosinophils/100 WBC (Bld) 0.1 % Critically low 0.9-7.0 [facility] Comment on above: Performed By: #### ERICK Jacques, PHOS #### [facility] [address] [place] [address] Dr. David Magana Erythrocyte distribution width (RBC) [Ratio] 13.2 % Normal 11.0-15.0 [facility] Comment on above: Performed By: #### M Marcell, ERICK, PHOS #### [facility] [address] [address] [address] David Magana Hematocrit (Bld) [Volume fraction] 43.1 % Normal 42.0-54.0 [facility] Comment on above: Performed By: #### M G, BMP, PHOS #### [facility] [address] [place] [address] Dr. David Magana Hemoglobin (Bld) [Mass/Vol] 14.5 g/dL Normal 14.0-18.0 [facility] Comment on above: Performed By: #### M Marcell, BMP, PHOS #### [facility] [address] [place] [address] Dr. David Magana IG # 0.14 10e3/ul Critically high 0.00-0.03 [facility] Comment on above: Performed By: #### M Marcell, BMP, PHOS #### [facility] [address] [address] [address] David Magana IG % 1.2 % Critically high 0.0-0.5 [facility] Comment on above: Performed By: #### M G, BMP, PHOS #### [facility] [address] [address] [address] David Magana LYMPH # 0.4 103/ul Critically low 1.2-3.8 [facility] Comment on above: Performed By: #### M G, BMP, PHOS #### [facility] [address] [address] [address] David Magana Lymphocytes/100 WBC (Bld) 3.4 % Critically low 20.5-60.0 [facility] Comment on above: Performed By: #### M G, BMP, PHOS #### [facility] [address] [address] [address] David Magana MANUAL DIFF REQ NO Normal [facility] Comment on above: Performed By: #### M Marcell BMP, PHOS #### [facility] [address] [place] [address] Dr. David Magana MCH (RBC) [Entitic mass] 33.3 pg Normal 25.9-34.0 [facility] Comment on above: Performed By: #### M Marcell BMP, PHOS #### [facility] [address] [place] [address] Dr. David Magana MCHC (RBC) [Mass/Vol] 33.6 g/dL Normal 29.9-35.2 [facility] Comment on above: Performed By: #### M ERICK Faith, PHOS #### [facility] [address] [place] [address] Dr. David Magana MCV (RBC) [Entitic vol] 98.9 fL Critically high 80.0-94.0 [facility] Comment on above: Performed By: #### ERICK Jacques, PHOS #### [facility] [address] [place] [address] Dr. David Magana MONO # 1.1 103/ul Critically high 0.3-0.8 [facility] Comment on above: Performed By: #### M ERICK Faith, PHOS #### [facility] [address] [place] [address] Dr. David Magana Monocytes/100 WBC (Bld) 8.9 % Normal 1.7-12.0 [facility] Comment on above: Performed By: #### M Marcell BMP, PHOS #### [facility] [address] [place] [address] Dr. David Magana NEUT # 10.3 103/ul Critically high 1.4-6.5 [facility] Comment on above: Performed By: #### M Marcell BMP, PHOS #### [facility] [address] [place] [address] Dr. David Magana Neutrophils/100 WBC (Bld) 86.2 % Critically high 43.0-75.0 [facility] Comment on above: Performed By: #### M ERICK Faith, PHOS #### [facility] [address] [address] [address] David Magana Platelet mean volume (Bld) [Entitic vol] 11.1 fL Normal 9.5-13.5 [facility] Comment on above: Performed By: #### M ERICK Faith, PHOS #### [facility] [address] [address] [address] David Magana PLT 229 103/ul Normal 150-450 [facility] Comment on above: Performed By: #### M ERICK Faith, PHOS #### [facility] [address] [place] [address] Dr. David Magana RBC 4.36 106/ul Critically low 4.70-6.10 [facility] Comment on above: Performed By: #### M ERICK Faith, PHOS #### [facility] [address] [place] [address] Dr. David aMgana WBC 11.9 103/ul Critically high 4.0-11.0 [facility] Comment on above: Performed By: #### M ERICK Faith, PHOS #### [facility] [address] [place] [address] Dr. David Magana PROF CHEM 8 (BAS METB)on Anion gap [Moles/Vol] 26.5 mmol/L Normal [facility] Comment on above: Performed By: #### C BC #### [facility] [address] [place] [address] Dr. David Magana Calcium [Mass/Vol] 8.2 mg/dL Critically low 8.5-10.1 [facility] Comment on above: Performed By: #### C BC #### [facility] [address] [place] [address] Dr. David Magana Chloride [Moles/Vol] 89 mmol/L Critically low 98-107 [facility] Comment on above: Performed By: #### C BC #### [facility] [address] [place] [address] Dr. David Magana CO2 [Moles/Vol] 14.5 mmol/L Critically low 21.0-32.0 [facility] Comment on above: Performed By: #### C BC #### [facility] [address] [address] [address] David Magana Creatinine [Mass/Vol] 2.78 mg/dL Critically high 0.70-1.30 [facility] Comment on above: Performed By: #### C BC #### [facility] [address] [address] [address] David Magana EGFR-AF KOSOVAN 27 mL/min/1.73m2 Critically low >=60 [facility] Comment on above: Performed By: #### C BC #### [facility] [address] [address] [address] David Magana EGFR-NON AF KOSOVAN 22 mL/min/1.73m2 Critically low >=60 [facility] Comment on above: Performed By: #### C BC #### [facility] [address] [address] [address] David Magana Glucose [Mass/Vol] 442 mg/dL Critically high 74-106 [facility] Comment on above: Performed By: #### C BC #### [facility] [address] [address] [address] David Magana Potassium [Moles/Vol] 6.0 mmol/L Critically high 3.5-5.1 [facility] Comment on above: Performed By: #### C BC #### [facility] [address] [address] [address] David Magana Sodium [Moles/Vol] 124 mmol/L Critically low 136-145 Th [facility] Comment on above: Performed By: #### C BC #### [facility] [address] [address] [address] David Magana Urea nitrogen [Mass/Vol] 73.0 mg/dL Critically high 7.0-18.0 [facility] Comment on above: Performed By: #### C BC #### [facility] [address] [address] [address] David Magana Urea nitrogen/Creatinine [Mass ratio] 26.3 mg/mg Normal [facility] Comment on above: Performed By: #### C BC #### [facility] [address] [address] [address] David Magana Covid-19 PCR ([facility])on 06-16 SARS-CoV-2 (COVID-19) RNA SULTANA+probe Ql (Unsp spec) Detected Critically abnormal NOT DETECTED [facility] Comment on above: Result Comment: This test is not yet approved or cleared by the [place] FDA. When there are no FDA-approved or cleared tests available, and other criteria are met, FDA can make tests available under an emergency access mechanism called an Emergency Use Authorization (EUA). The EUA for this test is supported by the [place] of Health and Human Service's (HHS's) declaration [...] By: #### M G, ERICK, PHOS #### [facility] [address] [address] [address] David Magana ECHOCARDIO M/2D COMPLETEon 0 07-01-2022 ECHOCARDIO M/2D COMPLETE Patient: NADIR HEREDIA Exam Date: 07/01/2022 : 1940 Gender:M Ordering : DR CLARIBEL PUGA M.D. Admission #: [id number] Family : DR VAN SUNG . Order #: [id number] CLICK HERE TO VIEW EXAM ECHOCARDIOGRAM REPORT [...] M.D. on 07/01/2022 at 16:27 Normal [facility] Covid-19 PCR ([facility])on SARS-CoV-2 (COVID-19) RNA SULTANA+probe Ql (Unsp spec) Not detected Normal NOT DETECTED [facility] Comment on above: Result Comment: When [...] for this test is supported by the [place] of Health and Human Service's declaration that [...] longer be used). Performed By: #### C REPLACED BY [facility] #### [facility] [address] [place] [address] Dr. David Magana CREATININE URINEon 2 URINE CREAT 14.70 mg/dL Critically low 20.00-300.00 [facility] Comment on above: Performed By: #### M ERICK Faith, PHOS #### [facility] [address] [place] [address] Dr. David Magana GLYCOHEMOGLOBIN A1Con 2021 ADA RECOMMENDATION SEE BELOW Normal [facility] Comment on above: Result Comment: ADA RECOMMENDED LIMIT 4.0 - 6.0 ADA THERAPEUTIC TARGET < 7.0 ACTION SUGGESTED > 7.0 Performed By: #### A 1C #### [facility] [address] [place] [address] Dr. David Magana Glucose [Mass/Vol] 209 mg/dL Normal [facility] Comment on above: Performed By: #### A 1C #### [facility] [address] [place] [address] Dr. David Magana HbA1c (Bld) [Mass fraction] 8.9 % Critically high 4.5-6.2 [facility] Comment on above: Performed By: #### A 1C #### [facility] [address] [place] [address] Dr. David Magana MAGNESIUMon 06-08-2022 Magnesium [Mass/Vol] 2.3 mg/dL Normal 1.8-2.4 [facility] Comment on above: Performed By: #### ERICK Jacques, PHOS #### [facility] [address] [place] [address] Dr. David Magana PHOSPHORUSon 06-08-2022 Phosphate [Mass/Vol] 3.5 mg/dL Normal 2.6-4.7 [facility] Comment on above: Performed By: #### M ERICK Faith, PHOS #### [facility] [address] [place] [address] Dr. David Magana PROF CHEM 8 (BAS METB)on Anion gap [Moles/Vol] 10.6 mmol/L Normal [facility] Comment on above: Performed By: #### M ERICK Faith, PHOS #### [facility] [address] [place] [address] Dr. David Magana Calcium [Mass/Vol] 9.2 mg/dL Normal 8.5-10.1 [facility] Comment on above: Performed By: #### M G, BMP, PHOS #### [facility] [address] [address] [address] David Magana Chloride [Moles/Vol] 102 mmol/L Normal 98-107 [facility] Comment on above: Performed By: #### M G, BMP, PHOS #### [facility] [address] [place] [address] Dr. David Magana CO2 [Moles/Vol] 30.1 mmol/L Normal 21.0-32.0 [facility] Comment on above: Performed By: #### M G, BMP, PHOS #### [facility] [address] [place] [address] Dr. David Magana Creatinine [Mass/Vol] 1.70 mg/dL Critically high 0.70-1.30 [facility] Comment on above: Performed By: #### M G, BMP, PHOS #### [facility] [address] [place] [address] Dr. David Magana EGFR-AF KOSOVAN 47 mL/min/1.73m2 Critically low >=60 [facility] Comment on above: Performed By: #### M G, BMP, PHOS #### [facility] [address] [place] [address] Dr. David Magana EGFR-NON AF KOSOVAN 39 mL/min/1.73m2 Critically low >=60 [facility] Comment on above: Performed By: #### M G, BMP, PHOS #### [facility] [address] [address] [address] David Magana Glucose [Mass/Vol] 197 mg/dL Critically high 74-106 [facility] [place] Comment on above: Performed By: #### M G, BMP, PHOS #### [facility] [address] [place] [address] Dr. David Magana Potassium [Moles/Vol] 4.7 mmol/L Normal 3.5-5.1 [facility] Comment on above: Performed By: #### M G, BMP, PHOS #### [facility] [address] [place] [address] Dr. David Magana Sodium [Moles/Vol] 138 mmol/L Normal 136-[address] [facility] Comment on above: Performed By: #### ERICK Jacques PHOS #### [facility] [address] [place] [address] Dr. David Magana Urea nitrogen [Mass/Vol] 25.0 mg/dL Critically high 7.0-18.0 [facility] Comment on above: Performed By: #### ERICK Jacques PHOS #### [facility] [address] [place] [address] Dr. David Magana Urea nitrogen/Creatinine [Mass ratio] 14.7 mg/mg Normal [facility] Comment on above: Performed By: #### ERICK Jacques PHOS #### [facility] [address] [place] [address] Dr. David Magana PROTEIN RAND URINEon 022 UR PROT <5.0 Normal <=11.9 [facility] Comment on above: Performed By: #### C REAU, PROTU #### [facility] [address] [place] [address] Dr. David Magana BILIRUBIN CONJUGATED (DIRECT )on 04-28-2022 BILI, CONJUGATED 0.1 mg/dL Normal 0.0-0.2 [facility] Comment on above: Performed By: #### P OCGLUC #### [facility] [address] [place] [address] Dr. David Magana CBC AUTO DIFFon 04-28-2022 BASO # 0.1 103/ul Normal 0.0-0.1 [facility] Comment on above: Performed By: #### C VDTBH #### [facility] [address] [place] [address] Dr. David Magana Basophils/100 WBC (Bld) 0.7 % Normal 0.2-2.0 [facility] Comment on above: Performed By: #### C VDTBH #### [facility] [address] [place] [address] Dr. David Magana EO # 0.5 103/ul Normal 0.0-0.7 [facility] Comment on above: Performed By: #### C VDTBH #### [facility] [address] [place] [address] Dr. David Magana Eosinophils/100 WBC (Bld) 6.7 % Normal 0.9-7.0 [facility] Comment on above: Performed By: #### C VDTBH #### [facility] [address] [place] [address] Dr. David Magana Erythrocyte distribution width (RBC) [Ratio] 13.6 % Normal 11.0-15.0 [facility] Comment on above: Performed By: #### C VDTBH #### [facility] [address] [place] [address] Dr. David Magana Hematocrit (Bld) [Volume fraction] 45.9 % Normal 42.0-54.0 [facility] Comment on above: Performed By: #### C VDTBH #### [facility] [address] [place] [address] Dr. David Magana Hemoglobin (Bld) [Mass/Vol] 14.9 g/dL Normal 14.0-18.0 [facility] Comment on above: Performed By: #### C VDTBH #### [facility] [address] [place] [address] Dr. David Magana IG # 0.03 10e3/ul Normal 0.00-0.03 [facility] Comment on above: Performed By: #### C VDTBH #### [facility] [address] [place] [address] Dr. David Magana IG % 0.4 % Normal 0.0-0.5 [facility] Comment on above: Performed By: #### C VDTBH #### [facility] [address] [place] [address] Dr. David Magana LYMPH # 1.0 103/ul Critically low 1.2-3.8 [facility] Comment on above: Performed By: #### C VDTBH #### [facility] [address] [place] [address] Dr. David Magana Lymphocytes/100 WBC (Bld) 13.4 % Critically low 20.5-60.0 [facility] Comment on above: Performed By: #### C VDTBH #### [facility] [address] [place] [address] Dr. David Magana MANUAL DIFF REQ NO Normal [facility] Comment on above: Performed By: #### C VDTBH #### [facility] [address] [place] [address] Dr. David Magaan MCH (RBC) [Entitic mass] 33.8 pg Normal 25.9-34.0 [facility] Comment on above: Performed By: #### C VDTBH #### [facility] [address] [place] [address] Dr. David Magana MCHC (RBC) [Mass/Vol] 32.5 g/dL Normal 29.9-35.2 [facility] Comment on above: Performed By: #### C VDTBH #### [facility] [address] [place] [address] Dr. David Magana MCV (RBC) [Entitic vol] 104.1 fL Critically high 80.0-94.0 [facility] Comment on above: Performed By: #### C VDTBH #### [facility] [address] [place] [address] Dr. David Magana MONO # 0.8 103/ul Normal 0.3-0.8 [facility] Comment on above: Performed By: #### C VDTBH #### [facility] [address] [place] [address] Dr. David Magana Monocytes/100 WBC (Bld) 10.2 % Normal 1.7-12.0 [facility] Comment on above: Performed By: #### C VDTBH #### [facility] [address] [place] [address] Dr. David Magana NEUT # 5.1 103/ul Normal 1.4-6.5 [facility] Comment on above: Performed By: #### C VDTBH #### [facility] [address] [place] [address] Dr. David Magana Neutrophils/100 WBC (Bld) 68.6 % Normal 43.0-75.0 [facility] Comment on above: Performed By: #### C VDTBH #### [facility] [address] [address] [address] David Magana Platelet mean volume (Bld) [Entitic vol] 11.3 fL Normal 9.5-13.5 [facility] Comment on above: Performed By: #### C VDTBH #### [facility] [address] [address] [address] David Magana PLT 185 103/ul Normal 150-450 [facility] Comment on above: Performed By: #### C VDTBH #### [facility] [address] [address] [address] David Magana RBC 4.41 106/ul Critically low 4.70-6.10 [facility] Comment on above: Performed By: #### C VDTBH #### [facility] [address] [address] [address] David Magana WBC 7.5 103/ul Normal 4.0-11.0 [facility] Comment on above: Performed By: #### C VDTBH #### [facility] [address] [address] [address] David Magana FREE T3on 04-28-2022 FREE T3 2.17 pg/mlL Critically low 2.18-3.98 [facility] Comment on above: Performed By: #### P OCGLUC #### [facility] [address] [place] [address] Dr. David Magana LIPID PROFILEon 04-28-2022 CHOL-HDL RATIO NORM SEE BELOW Normal [facility] Comment on above: Result Comment: 3.3 - 4.4 LOW RISK 4.4 - 7.1 AVERAGE RISK 7.1 - 11.0 MODERATE RISK >11.0 HIGH RISK Performed By: #### P OCGLUC #### [facility] [address] [place] [address] Dr. David Magana Cholesterol [Mass/Vol] 234 mg/dL Critically high <=200 [facility] Comment on above: Performed By: #### P OCGLUC #### [facility] [address] [address] [address] David Magana Cholesterol in HDL [Mass/Vol] 58 mg/dL Normal 40-60 [facility] Comment on above: Performed By: #### P OCGLUC #### [facility] [address] [address] [address] David Magana Cholesterol in LDL [Mass/Vol] 129.0 mg/dL Normal [facility] Comment on above: Performed By: #### P OCGLUC #### [facility] [address] [address] [address] David Magana Cholesterol.total/Cho lesterol in HDL [Mass ratio] 4.0 {ratio} Normal [facility] Comment on above: Performed By: #### P OCGLUC #### [facility] [address] [address] [address] David Magana HDL NORMAL > or = 60 mg/dl - LOW CARDIOVASCULAR RISK <40 mg/dl - HIGH CARDIOVASCULAR RISK Normal [facility] Comment on above: Performed By: #### P OCGLUC #### [facility] [address] [address] [address] David Magana LDL CALC NORMAL SEE BELOW Normal [facility] Comment on above: Result Comment: <100 mg/dl OPTIMAL 100 - 129 mg/dl NEAR OR ABOVE OPTIMAL 130 - 159 mg/dl BORDERLINE HIGH 160 - 189 mg/dl HIGH >190 mg/dl VERY HIGH Performed By: #### P OCGLUC #### [facility] [address] [address] [address] David Magana Triglyceride [Mass/Vol] 235 mg/dL Critically high <=150 [facility] Comment on above: Performed By: #### P OCGLUC #### [facility] [address] [address] [address] David Magana VLDL CALC 47.0 mg/dL Normal [facility] Comment on above: Performed By: #### P OCGLUC #### [facility] [address] [address] [address] David Magana PROF 14(COMP METB)on 022 Albumin [Mass/Vol] 3.2 g/dL Critically low 3.4-5.0 [facility] Comment on above: Performed By: #### P OCGLUC #### [facility] [address] [place] [address] Dr. David Magana Albumin/Globulin [Mass ratio] 0.9 {ratio} Normal [facility] Comment on above: Performed By: #### P OCGLUC #### [facility] [address] [address] Dr. David Magana ALP [Catalytic activity/Vol] 77 U/L Normal 46-116 [facility] Comment on above: Performed By: #### P OCGLUC #### [facility] [address] [place] [address] Dr. David Magana ALT [Catalytic activity/Vol] 24 U/L Normal 16-63 [facility] Comment on above: Performed By: #### P OCGLUC #### [facility] [address] [place] [address] Dr. David Magana Anion gap [Moles/Vol] 13.1 mmol/L Normal [facility] Comment on above: Performed By: #### P OCGLUC #### [facility] [address] [place] [address] Dr. David Magana AST [Catalytic activity/Vol] 13 U/L Critically low 15-37 [facility] Comment on above: Performed By: #### P OCGLUC #### [facility] [address] [place] [address] Dr. David Magana Bilirubin [Mass/Vol] 0.3 mg/dL Normal 0.2-1.0 [facility] Comment on above: Performed By: #### P OCGLUC #### [facility] [address] [place] [address] Dr. David Magana Calcium [Mass/Vol] 8.8 mg/dL Normal 8.5-10.1 [facility] Comment on above: Performed By: #### P OCGLUC #### [facility] [address] [place] [address] Dr. David Magana Chloride [Moles/Vol] 106 mmol/L Normal 98-107 [facility] Comment on above: Performed By: #### P OCGLUC #### [facility] [address] [address] [address] David Magana CO2 [Moles/Vol] 27.5 mmol/L Normal 21.0-32.0 [facility] Comment on above: Performed By: #### P OCGLUC #### [facility] [address] [place] [address] Dr. David Magana Creatinine [Mass/Vol] 1.62 mg/dL Critically high 0.70-1.30 [facility] Comment on above: Performed By: #### P OCGLUC #### [facility] [address] [place] [address] Dr. David Magana EGFR-AF KOSOVAN 50 mL/min/1.73m2 Critically low >=60 [facility] Comment on above: Performed By: #### P OCGLUC #### [facility] [address] [place] [address] Dr. David Magana EGFR-NON AF KOSOVAN 41 mL/min/1.73m2 Critically low >=60 [facility] Comment on above: Performed By: #### P OCGLUC #### [facility] [address] [place] [address] Dr. David Magana Globulin (S) [Mass/Vol] 3.4 g/dL Normal [facility] Comment on above: Performed By: #### P OCGLUC #### [facility] [address] [address] [address] David Magana Glucose [Mass/Vol] 206 mg/dL Critically high 74-106 [facility] Comment on above: Performed By: #### P OCGLUC #### [facility] [address] [place] [address] Dr. David Magana Potassium [Moles/Vol] 4.6 mmol/L Normal 3.5-5.1 [facility] Comment on above: Performed By: #### P OCGLUC #### [facility] [address] [place] [address] Dr. David Magana Protein [Mass/Vol] 6.6 g/dL Normal 6.4-8.[address] [facility] Comment on above: Performed By: #### P OCGLUC #### [facility] [address] [place] [address] Dr. David Magana Sodium [Moles/Vol] 142 mmol/L Normal 136-145 [facility] Comment on above: Performed By: #### P OCGLUC #### [facility] [address] [place] [address] Dr. David Magana Urea nitrogen [Mass/Vol] 26.0 mg/dL Critically high 7.0-18.0 [facility] Comment on above: Performed By: #### P OCGLUC #### [facility] [address] [place] [address] Dr. David Magana Urea nitrogen/Creatinine [Mass ratio] 16.0 mg/mg Normal [facility] Comment on above: Performed By: #### P OCGLUC #### [facility] [address] [place] [address] Dr. David Magana T4on 04-28-2022 T4 [Mass/Vol] 7.70 ug/dL Normal 4.50-12.10 [facility] Comment on above: Performed By: #### P OCGLUC #### [facility] [address] [place] [address] Dr. David Magana TSHon 04-28-2022 TSH 2.187 uIU/mL Normal 0.358-3.740 [facility] Comment on above: Performed By: #### P OCGLUC #### [facility] [address] [place] [address] Dr. David Magana TSH RANGE SEE BELOW Normal [facility] Comment on above: Result Comment: <0.3 4 UIU/ml HYPERTHYROID 0.34-5.60 UIU/ml EUTHYROID >5.60 UIU/ml HYPOTHYROID Performed By: #### P OCGLUC #### [facility] [address] [place] [address] Dr. David Magana Vital Signs Date Time Vital Sign Value Performing Clinician Facility 10-14-2023 14:33-0500 Diastolic blood pressure 70 mm[Hg] Nereyda Patricia [facility] 10-14-2023 14:33-0500 Mean blood pressure 93 mm[Hg] Nereyda Patricia [facility] 10-14-2023 14:33-0500 Systolic blood pressure 138 mm[Hg] Nereyda Patricia [facility] 10-14-2023 14:18-0500 Blood Pressure Location Nereyda Patricia [facility] 10-14-2023 14:18-0500 Body temperature 97.88 [degF] Nereyda Patricia [facility] 10-14-2023 14:18-0500 Diastolic blood pressure 73 mm[Hg] Nereyda Patricia [facility] 10-14-2023 14:18-0500 Heart rate 91 /min Nereyda Patricia [facility] 10-14-2023 14:18-0500 Systolic blood pressure 143 mm[Hg] Nereyda Patricia [facility] 10-01-2023 12:13-0500 Diastolic blood pressure 66 mm[Hg] Nereyda Patricia [facility] 10-01-2023 12:13-0500 Mean blood pressure 104 mm[Hg] Nereyda Patricia [facility] 10-01-2023 12:13-0500 Systolic blood pressure 179 mm[Hg] Nereyda Patricia [facility] 10-01-2023 12:10-0500 Blood Pressure Location Nereyda Patricia [facility] 10-01-2023 12:10-0500 Body temperature 98.42 [degF] Nereyda Patricia [facility] 10-01-2023 12:10-0500 Diastolic blood pressure 77 mm[Hg] Nereyda Patricia [facility] 10-01-2023 12:10-0500 Heart rate 81 /min Nereyda Patricia [facility] 10-01-2023 12:10-0500 Respiratory rate 14 /min Nereyda Patricia [facility] 10-01-2023 12:10-0500 Systolic blood pressure 168 mm[Hg] Nereyda Patricia [facility] 06-10-2023 10:43-0400 Diastolic blood pressure 64 mm[Hg] Nereyda Patricia [facility] 06-10-2023 10:43-0400 Heart rate 76 /min Nereyda Patricia [facility] 06-10-2023 10:43-0400 Respiratory rate 16 /min Nereyda Patricia [facility] 06-10-2023 10:43-0400 SaO2% (BldA) [Mass fraction] 95 % Nereyda Patricia [facility] 06-10-2023 10:43-0400 Systolic blood pressure 121 mm[Hg] Nereyda Patricia [facility] 04-13-2023 14:19-0400 Diastolic blood pressure 70 mm[Hg] Nereyda Patricia [facility] 04-13-2023 14:19-0400 Mean blood pressure 95 mm[Hg] Nereyda Patricia [facility] 04-13-2023 14:19-0400 Systolic blood pressure 146 mm[Hg] Nereyda Patricia [facility] 04-13-2023 14:15-0400 Blood Pressure Location Nereyda Patricia [facility] 04-13-2023 14:15-0400 Body temperature 97.7 [degF] Nereyda Patricia [facility] 04-13-2023 14:15-0400 Diastolic blood pressure 87 mm[Hg] Nereyda Patricia [facility] 04-13-2023 14:15-0400 Heart rate 70 /min Nereyda Patricia [facility] 04-13-2023 14:15-0400 Systolic blood pressure 150 mm[Hg] Nereyda Patricia [facility] 06-09-2022 10:02-0400 Body temperature 96.98 [degF] Nereyda Patricia [facility] 06-09-2022 10:02-0400 Diastolic blood pressure 75 mm[Hg] Nereyda Patricia [facility] 06-09-2022 10:02-0400 Heart rate 72 /min Nereyda Patricia [facility] 06-09-2022 10:02-0400 SaO2% (BldA) [Mass fraction] 97 % Nereyda Patricia [facility] 06-09-2022 10:02-0400 Systolic blood pressure 139 mm[Hg] Nereyda Gomez [facility] 05-11-2022 11:30-0400 Diastolic blood pressure 102 mm[Hg] Bender SALAM [facility] 05-11-2022 11:30-0400 Heart rate 86 /min Bender SALAM [facility] 05-11-2022 11:30-0400 Respiratory rate 15 /min Bender SALAM [facility] 05-11-2022 11:30-0400 SaO2% (BldA) [Mass fraction] 95 % Bender SALAM [facility] 05-11-2022 11:30-0400 Systolic blood pressure 172 mm[Hg] Bender SALAM [facility] 05-11-2022 11:15-0400 Diastolic blood pressure 88 mm[Hg] Bender SALAM [facility] 05-11-2022 11:15-0400 Heart rate 86 /min Bender SALAM [facility] 05-11-2022 11:15-0400 Respiratory rate 18 /min Bender SALAM [facility] 05-11-2022 11:15-0400 SaO2% (BldA) [Mass fraction] 97 % Bender SALAM [facility] 05-11-2022 11:15-0400 Systolic blood pressure 170 mm[Hg] Bender SALAM [facility] 05-11-2022 11:10-0400 Diastolic blood pressure 108 mm[Hg] Bender SALAM [facility] 05-11-2022 11:10-0400 Heart rate 85 /min Bender SALAM [facility] 05-11-2022 11:10-0400 Respiratory rate 14 /min Bender SALAM [facility] 05-11-2022 11:10-0400 SaO2% (BldA) [Mass fraction] 97 % Bender SALAM [facility] 05-11-2022 11:10-0400 Systolic blood pressure 157 mm[Hg] Bender SALAM [facility] 05-11-2022 11:02-0400 Body temperature 97.34 [degF] Bender SALAM [facility] 05-11-2022 10:27-0400 Blood Pressure Location Bender SALAM [facility] 05-11-2022 10:23-0400 Blood Pressure Location Bender SALAM [facility] 05-11-2022 10:23-0400 Body temperature 98.24 [degF] Bender SALAM [facility] 03-31-2022 09:53-0400 Blood Pressure Location Nereyda Joyametz [facility] 03-31-2022 09:53-0400 Body temperature 97.7 [degF] Nereyda Patricia [facility] 03-31-2022 09:53-0400 Diastolic blood pressure 72 mm[Hg] Nereyda Patricia [facility] 03-31-2022 09:53-0400 Heart rate 73 /min Nereyda Gomez [facility] 03-31-2022 09:53-0400 SaO2% (BldA) [Mass fraction] 96 % Nereyda Gomez [facility] 03-31-2022 09:53-0400 Systolic blood pressure 129 mm[Hg] Nereyda Gomez [facility] Encounters Encounter Date Encounter Type Care Provider Facility Start: 06-05-2024 End: 06-05-2024 ambulatory [facility] Start: 06-01-2024 End: 06-01-2024 ambulatory ROBINSON A BROWN Not Available Start: 04-20-2024 End: 04-20-2024 ambulatory ROBINSON A BROWN Not Available Start: 03-03-2024 End: 03-03-2024 ambulatory [facility] Start: 02-10-2024 End: 02-10-2024 ambulatory ROBINSON A BROWN Not Available Start: 02-02-2024 ambulatory Nereyda Cabrera ty:[facility] Start: 01-11-2024 End: 01-11-2024 ambulatory BARRIE Gil BEBubba Not Available Start: 12-09-2023 ambulatory Nereyda Cabrera ty:[facility] Start: 12-02-2023 End: 12-02-2023 ambulatory ROBINSON A BROWN Not Available Start: 11-17-2023 End: 11-17-2023 ambulatory DANA [facility] Start: 10-14-2023 End: 10-15-2023 ambulatory Nereyda Gomez Facility:[facility] Start: 10-14-2023 End: 10-14-2023 Patient encounter procedure Nereyda Gomez [facility] Start: 10-01-2023 End: 10-02-2023 ambulatory Nereyda A Patricia Facility:[facility] Start: 10-01-2023 End: 10-02-2023 ambulatory Nereyda A Patricia Facility:[facility] Start: 10-01-2023 End: 10-01-2023 Patient encounter procedure Nereyda A Patricia [facility] Start: 10-01-2023 End: 10-01-2023 Patient encounter procedure Nereyda A Patricia [facility] Start: 09-17-2023 End: 09-17-2023 ambulatory [facility] Start: 09-13-2023 End: 09-14-2023 ambulatory Nereyda A Patricia Facility:[facility] Start: 09-13-2023 End: 09-13-2023 Patient encounter procedure Nereyda A Patricia [facility] Start: 08-31-2023 End: 08-31-2023 ambulatory [facility] Start: 07-21-2023 End: 07-21-2023 ambulatory [facility] Start: 06-14-2023 End: 06-14-2023 ambulatory [facility] Start: 06-10-2023 End: 06-11-2023 ambulatory Nereyda A Patricia Facility:[facility] Start: 06-10-2023 End: 06-10-2023 Patient encounter procedure Nereyda A Patricia [facility] Start: 04-15-2023 End: 04-16-2023 ambulatory Nereyda A Patricia Facility:[facility] Start: 04-15-2023 End: 04-15-2023 Lab Drop off Nereyda A Patricia [facility] Start: 04-13-2023 End: 04-14-2023 ambulatory Nereyda Cara JoyaPatricia Facility:[facility] Start: 04-13-2023 End: 04-13-2023 Patient encounter procedure Nereyda A Patricia [facility] Start: 03-24-2023 End: 03-25-[address] RUTHIE LINDA Facility:[facility] Start: 03-08-2023 ambulatory Francisco FRYE Facility : [facility] Start: 02-27-2023 End: 02-28-[address] VAN [...] End: 06-09-2022 Patient encounter procedure Nereyda Gomez [facility] Start: 06-08-2022 End: 06-09-2022 ambulatory GAMALIEL DALEY Facility:[facility] Start: 05-11-2022 End: 05-11-2022 Patient encounter procedure Napoleon MENDEZ [facility] Start: 04-28-2022 End: 04-29-[address] VAN SUNG . Facility: Start: 03-31-2022 End: 03-31-2022 Patient encounter procedure Nereyda Gomez [facility] Start: 2019 End: 02-07-2019 Patient encounter procedure DEFAULT PHYSICIAN Facility:[facility] Procedures Date Procedure Procedure Detail Performing Clinician Start: 05-11-2022 Colonoscopy Napoleon Fernandez Comment on above: 2 polyps, diveticulo sis, IH Start: 01-11-2017 Cardioversion Nereyda Martinezfrantz vaughan Back structure, excl uding neck (body structure) Nereyda Gomez Cholecystectomy Nereyda Funk ceasar Colonoscopy Nereyda Gomez History of hernia repair Ave Gomez Tonsillectomy Nereyda Gomez Immunizations Immunization Date Immunization Notes Care Provider Lashell angel 10-21-2022 SARS-CoV-2 (COVID-19 ) [id number] Nereyda Gomez [facility] Comment on above: Result Comment: 2022: [id number] 08-26-2021 SARS-CoV-2 (COVID-19 ) mRNA BNT-162b2 vax Nereyda Joyametz [facility] 01-01-2021 SARS-CoV-2 (COVID-19 ) mRNA BNT-162b2 vax Nereyda Joyametz [facility] 12-09-2020 SARS-CoV-2 (COVID-19 ) mRNA BNT-162b2 vax Nereyda Joyametz [facility] 08-27-2020 influenza virus vaccine, unspecified formulation Nereyda Gomez [facility] 08-16-2017 pneumococcal conjugate vaccine, 13 valent eNreyda Gomez [facility] 08-05-2017 influenza, unspecified formulation Nereyda Gomez [facility] 09-20-2015 zoster vaccine, live Nereyda Nath [facility] NEGATED: Highlighted row has not occurred!10-13-2023 influenza virus vaccine, unspecified formulation Nereyda Gomez [facility] NEGATED: Highlighted row has not occurred!09-29-2023 influenza virus vaccine, unspecified formulation Nereyda Gomez [facility] Payers Date Payer Category Payer Unknown [id number] 1960 Medicare [id number] 1940 Unknown [id number] 2.16.8 40.1.778699.3.579.2.647 1939 Unknown [id number] 2.16.84 0.1.571306.3.579.2.593 1939 Unknown [id number] 2.16.84 0.1.937808.3.579.2.593 1939 Unknown [id number] 2.16.84 0.1.150796.3.579.2.593 1939 Unknown [id number] 2.16.84 0.1.008545.3.579.2.593 1939 Unknown [id number] 2.16.84 0.1.452810.3.579.2.593 1939 Unknown [id number] 2.16.84 0.1.622334.3.579.2.593 1939 Unknown [id number] 2.16.84 0.1.960358.3.579.2.593 1939 Unknown [id number] 2.16.84 0.1.205520.3.579.2.593 1939 Unknown [id number] 2.16.84 0.1.677804.3.579.2.593 1939 Unknown [id number] 2.16.84 0.1.932099.3.579.2.593 1939 Unknown [id number] 2.16.84 0.1.004630.3.579.2.593 1939 Unknown [id number] 2.16.8 40.1.474227.3.579.2.727 1939 Unknown [id number] 2.16.8 40.1.649883.3.579.2.727 1939 Unknown [id number] 2.16.8 40.1.097394.3.579.2.727 1939 Unknown [id number] 2.16.8 40.1.555348.3.579.2.727 1939 Unknown [id number] 2.16.8 40.1.372277.3.579.2.727 1939 Unknown [id number] 2.16.8 40.1.736235.3.579.2.727 1939 Unknown [id number] 2.16.8 40.1.121593.3.579.2.727 1939 Unknown [id number] 2.16.8 40.1.558469.3.579.2.727 1939 Unknown [id number] 2.16.8 40.1.362240.3.579.2.727 1939 Unknown [id number] 2.16.8 40.1.192661.3.579.2.727 1939 Unknown [id number] 2.16.8 40.1.809272.3.579.2.727 1939 Unknown [id number] 2.16.84 0.1.585858.3.579.2.1259 1939 Unknown [id number] 2.16.84 0.1.448465.3.579.2.1259 1939 Unknown [id number] 2.16.84 0.1.851226.3.579.2.1259 1939 Unknown [id number] 2.16.84 0.1.980054.3.579.2.1259 1939 Unknown [id number] 2.16.84 0.1.882942.3.579.2.1259 Unknown Social History Date Type Detail Facility Start: 03-31-2022 End: 10-14-2023 Tobacco smoking status Ex-smoker (finding) [facility] Tobacco smoking status Never [facility] Sex Assigned At Male [facility] Functional Status Date Assessment Result Facility 10-14-2023 Functional Status N/A [facility] 10-01-[address] [facility] 04-13-2023 Functional Status N/A [facility] 06-09-2022 Functional Status N/A [facility] 05-11-2022 Functional Status N/A [facility] Clinical Notes 03-31-2022 to 06-05-2024 Note Date & Type Note Facility 06-05-2024 Note ID Cardiology - [facility] Subjective Nadir Heredia is a 84 y.o. year old male patient being seen for 3 mo follow up chronic diastolic heart failure, afib, CAD, valve disorder, and pulmonary hypertension. Lasix was increased at last visit in February 2024, and hydralazine was stopped. Had echo back in February to follow up on pericardial effusion. Says his LE edema and HERNANDEZ remain unchanged. Still denies chest pain, palpitations, lightheadedness/syncope, and bleeding on Eliquis. Patient Active Problem [...] Stenosis of left renal artery (CMS/HCC) Tremor Acute kidney injury (CMS/HCC) Benign essential tremor Cervical paraspinal muscle spasm Neurogenic pain Polyneuropathy Family History Problem Relation Name Age of [...] effusion. He responded to increasing diuretic therapy. He was admitted to the [facility] in August 2022 due to hyponatremia, hyperkalemia and acute kidney injury, leukocytosis secondary to COVID-19 causing dehydration. I saw him on 05/24/2023 and the office and he had significant evidence of volume overload by exam and echocardiogram. I intensified his diuretic regimen. He ended up getting admitted to the [facility] with acute heart failure exacerbation and underwent diuresis. I saw him on 07/21/2023. I proceeded with a transesophageal echocardiogram to further assess his aortic valve stenosis given his admission for decompensated heart failure to rule out more severe aortic valve stenosis that what we are seeing on transthoracic echocardiogram. Transesophageal echocardiogram was suggestive heavily calcified aortic valve with moderate to severe stenosis. His echocardiogram on 02/17/2024 showed a severely elevated right-sided pressures with an RVSP of 80 mmHg with moderate circumferential pericardial effusion and normal ventricular systolic function. At visit of 03/03/2024 I stopped hydralazine due to the presence of pericardial effusion. I also increase Lasix to 40 mg twice daily and later this was increased to 60 mg in the morning and 40 mg in the evening. Today he is seen in follow-up. He has been doing better. He has no chest pain. He has shortness of breath on exertion, NYHA class II. He also has mild lower extremity swelling. He does not feel palpitations. He has no syncope. No dizziness or lightheadedness. Review of Systems Cardiovascular: Positive for dyspnea on exertion and leg swelling. All other systems reviewed and are negative. Objective Visit Vitals BP 130/84 (BP Location: Right arm, Patient Position: Sitting) Pulse 93 Ht 1.854 m (6' 1 ) Wt 88.9 kg (196 lb) SpO2 98% BMI 25.86 kg/m??? Smoking Status Former BSA 2.14 m??? Physical Exam Constitutional: Appearance: He is well-developed. He is not ill-appearing. HENT: Head: Normocephalic and atraumatic. Nose: Nose normal. Eyes: General: No scleral icterus. Pupils: Pupils are equal, round, and reactive to light. Neck: Thyroid: No thyromegaly. Vascular: No JVD. Cardiovascular: Rate and Rhythm: Normal rate. Rhythm irregularly irregular. Pulses: Radial pulses are 2+ on the right side and 2+ o (more content not included)... [facility] 03-03-2024 Note ID Cardiology - [facility] Subjective Nadir Heredia is a 84 [...] extremity edema. He was admitted to the [facility] in August 2022 due to hyponatremia, hyperkalemia and acute kidney injury, leukocytosis secondary to COVID-19 causing dehydration. I saw him on 05/24/2023 and the office and he had significant evidence of volume overload by exam and echocardiogram. I intensified his diuretic regimen. He ended up getting admitted to the [facility] with acute heart failure exacerbation and [...] Musculoskeletal: General: N (more content not included)... [facility] 11-17-2023 Note Attestation signed by Ruthie Linda MD at 11/21/2023 6:55 PM I saw, interviewed, examined and evaluated the patient with Nephrology fellow, Dr. Dana Aparicio. I participated in the medical management of the patient. I reviewed the fellow's note and agree with the fellow's documentation in the note. Ruthie Linda MD Faculty, Division of Nephrology, Department of Medicine, [facility] [facility]. [facility] Patient: Nadir Heredia; 83 y.o. Visit date: 11/17/23 Reason for today's visit: Follow up for CKD stage 3, Hypertension, Edema/ Fluid overload, and Electrolytes disturbances SUBJECTIVE: BACKGROUND: Nadir Heredia is a 83 y.o. male has a past medical history of Atrial fibrillation ([facility]), CHF (congestive heart failure) ([facility]), Chronic kidney disease, COPD (chronic obstructive pulmonary disease) ([facility]), Coronary artery disease, Diabetes mellitus ([facility]), Heart valve disease, Hypertension, Pericardial effusion, and Sleep apnea. History of paroxysmal atrial fibrillation maintained on anticoagulation with Eliquis, aortic stenosis, renal artery stenosis, and hypertension. He had stenting of the left renal artery from the left radial approach on 05/01/2015 (Express SD 6 mm x 18 mm stent). He was admitted to the [facility] in August 2022 due to hyponatremia, [...] place, and time (more content not included)... [facility] 10-14-2023 Hospital Discharge instructions Patient [...] as fried or sweet foods. These include tristanian fries, hamburgers, cookies, candies, and soda. Drink enough fluid to keep your urine pale yellow. General instructions Exercise regularly or as told by your health care provider. Try to do 150 minutes of moderate exercise each week. Use the bathroom when you have the urge to go. Do not hold it in. Take mwpu-slh-scqbngl and prescription medicines only as told by [...] to keep your urine pale yellow. Take tgdb-pit-qrcqlfi and prescription medicines only as told by your health care provider. This includes any fiber supplements. This information is not intended to replace advice given to you by your health care provider. Make sure you discuss any questions you have with your health care provider. Document Revised: 09/18/2020 Document Reviewed: 09/18/2020 [employer] Patient Education 2022 [employer]. Follow Up Care 10/01/2023 12:57:46 With:Nereyda Gomez CNP Address: When:1 month [facility] 10-01-2023 Hospital Discharge instructions [...] Bulgur wheat. Millet. Quinoa. Bran muffins. Popcorn. Arabi wafer crackers. Meats and other proteins [place] beans, kidney beans, and mendez beans. Soybeans. [...] Cream cheese. Sour cream. Fats and oils [place]con[place]. Beverages Soft drinks. Other foods Cakes and [...] provider. Document Revised: 03/06/2021 Document Reviewed: 03/06/2021 [employer] Patient Education 2022 [employer]. Follow Up Care 09/20/2023 08:43:45 With:Nereyda Gomez CNP Address:Unknown When: Unknown [facility] 09-17-2023 Note ID Cardiology - [facility] Subjective Nadir Heredia is a 83 [...] extremity edema. He was admitted to the [facility] in August 2022 due to hyponatremia, hyperkalemia and acute kidney injury, leukocytosis secondary to COVID-19 causing dehydration. I saw him on 05/24/2023 and the office and he had significant evidence of volume overload by exam and echocardiogram. I intensified his diuretic regimen. He ended up getting admitted to the [facility] with acute heart failure exacerbation and [...] Allergies Allergen Reactions Iodinated Contrast Media Nitroglycerin Gcjures-Jss-Bhi Reductase Inhibitors Medications Current Outpatient Medications: (more content not included)... [facility] 08-31-2023 Note Patient: Nadir lin Procedure Information Date/Time: 08/31/23 1300 Procedure: TRANSESOPHAGEAL ECHO (MARK) Location: [facility] Vascular Lab Clinical information reviewed: Allergies Meds Physical Exam Airway Mallampati: III TM distance: >3 FB Cardiovascular Rhythm: regular Rate: normal (+) murmur Dental Pulmonary Breath sounds clear to auscultation Abdominal Abdomen: soft Anesthesia Plan ASA 4 (Conscious sedation) Anesthetic plan and risks discussed with patient. Use of blood products discussed with patient who. Additional Equipment Requests [facility] 07-21-2023 Note ID Cardiology - [facility] Subjective Nadir Heredia is a 83 y.o. year old male patient being seen for Follow-up Patient Active Problem List Diagnosis Aortic valve disorder Atherosclerosis of renal artery (CMS/HCC) Chronic atrial fibrillation ([facility]/HCC) Coronary arteriosclerosis Bradycardia Aortic valve stenosis Type [...] extremity edema. He was admitted to the [facility] in August 2022 due to hyponatremia, hyperkalemia and acute kidney injury, leukocytosis secondary to COVID-19 causing dehydration. I saw him on 05/24/2023 and the office and he had significant evidence of volume overload by exam and echocardiogram. I intensified his diuretic regimen. He ended up getting admitted to the [facility] with acute heart failure exacerbation and [...] Allergies Allergen Reactions Iodinated Contrast Media Nitroglycerin Bgfayhz-Pit-Uql Reductase Inhibitors Medications Current Outpatient Medications: acyclovir [...] every day by (more content not included)... [facility] 06-14-2023 Note BMP script sent [facility] 06-14-2023 Note Coronary artery dise ase is stable Continue GDMT- ASA, labetalol, zetia continue risk factor modifications- heart healthy diet, regular exercise as tolerated and continue all medications. [facility] 06-14-2023 Note stable [facility] 06-14-2023 Note Recent echo 05/2023 w ith noted mod AO stenosis [facility] 06-14-2023 Note [facility]TP CARDIOLOGY PROGR ESS NOTE HPI: Nadir Heredia is a 83 y.o. male here for hospital f/U after admit to [facility] for resp failure, and acute heart failure exacerbation. Recent admit to [facility] for shortness of breath, acute HFpEF [...] Allergies Allergen Reactions Iodinated Contrast Media Nitroglycerin Whyhilo-Ogo-Nuz Reductase Inhibitors Medications: Current Outpatient Medications on [...] diastolic heart failure (CMS/HCC) Recent admit to [facility] for shortness of breath, acute HFpEF with ARTUR. BNP 3311, BUN 26, CR 1.5-1.9, LFT normal, K+ normal. Troponin level negative. CXR showed vascular congestion Pt was admitted and diuresed as inpt. [facility] III Continue GDMT- remains on jardiance and lasix 60 mg daily for diuresis Monitor daily weights, I&O, fluid restriction 1.5 (more content not included)... [facility] 06-14-2023 Note Patient here for fol low up [facility] for CHF. Dr. Sung gave him a few days of spironolactone to help with SOB. This did not help so he went to [facility] ED. He was diuresed with IV lasix. Says his breathing and LE edema are much better. Denies chest pain, lightheadedness, palpitations, and bleeding on Eliquis. Review of Systems Cardiovascular: Positive for dyspnea on exertion (improving) and leg swelling (improving). Hematologic/Lymphatic: Bruises/bleeds easily. Neurological: Positive for loss of balance. All other systems reviewed and are negative. [facility] 06-14-2023 Note Recent admit to [facility] for shortness of breath, acute HFpEF [...] provided pt is also seeing PCP today [facility] 06-10-2023 Hospital Discharge instructions Patient [...] hard liquor (44 mL). General instructions Take mzzy-hav-evzuxmo and prescription medicines only as told by [...] provider. Document Revised: 02/19/2021 Document Reviewed: 02/19/2021 [employer] Patient Education 2022 [employer]. Follow Up Care 04/13/2023 14:39:27 With:Nereyda Gomez CNP Address: When:3 months [facility] 04-13-2023 Hospital Discharge instructions Patient Education 04/13/2023 [...] including vitamins, herbs, eye drops, creams, and enam-drh-cbxvgnx medicines. Any problems you or family members [...] provider tells you to take them. Taking jshi-dvx-ihhefzc medicines, vitamins, herbs, and supplements. General instructions [...] provider. Document Revised: 10/26/2022 Document Reviewed: 06/24/2022 [employer] Patient Education 2022 [employer]. Follow Up Care 04/09/2023 11:27:16 With:Nereyda Gomez CNP Address: When:1 month [facility] 04-13-2023 Note Radiology Colonoscopy, [...] including vitamins, herbs, eye drops, creams, and oujt-wwa-gxjllzy medicines. ? Any problems you or family [...] tells you to take them. ? Taking vvzq-tdv-nnyhddd medicines, vitamins, herbs, and supplements. General instructions [...] for cancer cells. (more content not included)... [facility] 07-18-2022 Note EXAM: US CHANI DOP LEG [...] authenticated by: LI ROBERTS Date: 2022-07-18 09:05 [facility] 06-09-2022 Hospital Discharge instructions Patient Education 06/09/2022 [...] per serving. Talk with a diet and digital media specialist (dietitian) if you have questions about [...] Bulgur wheat. Millet. Quinoa. Bran muffins. Popcorn. Arabi wafer crackers. Meats and other proteins [place], kidney, and mendez beans. Soybeans. Split peas. [...] Cream cheese. Sour cream. Fats and oils [place]. Beverages Soft drinks. Other foods Cakes and [...] 11/01/2006 Document Revised: 09/05/2018 Document Reviewed: 09/05/2018 [employer] Patient Education 2020 [employer]. 06/09/2022 10:13:34 Hemorrhoids Hemorrhoids Hemorrhoids are swollen [...] 3 times a day. General instructions Take oxpx-xqe-liegoxh and prescription medicines only as told by [...] 10/29/2001 Document Revised: 03/29/2020 Document Reviewed: 03/23/2019 [employer] Patient Education 2020 [employer]. 06/09/2022 10:13:31 Diverticulosis Diverticulosis Diverticulosis is a [...] overweight. Not getting enough exercise. Smoking. Taking gafo-qpr-qcdfton pain medicines, like aspirin and ibuprofen. Having [...] health care provider or your diet and digital media specialist (dietitian). ?Take a fiber supplement or probiotic, if your health care provider approves. Take thrc-rfm-lrugetv and prescription medicines only as told by [...] 07/29/2005 Document Revised: 10/14/2018 Document Reviewed: 09/20/2017 [employer] Patient Education 2020 [employer]. 06/09/2022 10:13:30 Colon Polyps Colon Polyps Polyps [...] 07/28/2005 Document Revised: 02/16/2019 Document Reviewed: 02/16/2019 [employer] Patient Education 2020 [employer]. Follow Up Care 05/13/2022 14:18:17 With:Nereyda Gomez CNP Address: When:1 year only if needed [facility] 05-11-2022 Evaluation + Plan note Extrac fernando from: Title:Anesthesia post op endo Author:Jeffrey Gr MD Date:05/11/22 Plan Transfer/ Discharge: Patient can be discharged from PACU when criteria met. Condition good. Extracted from: Title:Anesthesia Pre-Op endo 2 Author:Jeffrey Gr MD Date:05/11/22 Plan [place] [employer] Anesthesiologists (ASA) physical status classification: [...] lungs, allergic reactions, and .. [facility]06-27-2022 Hospital Discharge instructions Patient Education 05/11/2022 11:13:39 Colonoscopy, Care After Surgery Salam (CUSTOM) Colonoscopy Care After Surgery Please read the instructions outlined below and refer to this sheet in the next few weeks. These discharge instructions provide you with general information on [facility] Your doctor may also give you [...] 07/28/2005 Document Revised: 02/16/2019 Document Reviewed: 02/16/2019 [employer] Patient Education 2020 [employer]. 05/11/2022 11:13:39 Diverticulosis MAGR (CUSTOM) Diverticulosis Many [...] unsweetened, w/added ascorbic acid 1 cup 0.5 [place] 1 cup 0.7 Vegetables Cooked Green beans 1 cup 4.0 Carrots 1/2 cup sliced 2.3 Peas 1 cup 8.8 Potato (baked, with skin) 1 medium potato 3.8 Raw Greenleaf (with peel) 1 cucumber 1.5 Lettuce 1 [...] 8.7 Peanuts 1/2 cup 7.9 Chart from [facility] 2013. SEEK IMMEDIATE MEDICAL CARE [...] Information adapted from: ExitCare Patient Information 2009 [employer]. [employer] 2012 [email or web address] Follow Up Care 03/31/2022 10:27:32 With:Napoleon MENDEZ Address: [facility] [address] [place] [address] Business (1) When: Unknown Comments:office will call for follow up [facility]05-17-2022 Hospital Discharge instructions Patient Education 03/31/2022 [...] including vitamins, herbs, eye drops, creams, and kysh-vut-kmckwfv medicines. Any problems you or family members [...] 10/29/2001 Document Revised: 08/24/2018 Document Reviewed: 01/12/2017 [employer] Patient Education 2020 [employer]. Follow Up Care 03/23/2022 12:11:50 With:Nereyda Gomez CNP Address: When:1 month [facility] eveTherapeuticsation + Plan note Future Appointments Appointment Date:05/25/2022 08:45:00 AM Scheduled Provider: Location:[facility] Appointment Type:Surgery [facility] Evaluation + Plan note Future Appointments Appointment Date:06/10/2023 10:40:00 AM Scheduled Provider:Nereyda Gomez CNP Location:[facility] Appointment Type:[facility] Follow Up Future Scheduled Tests Laboratory* Fecal WBC Lactoferrin 04/13/23 * Giardia lamblia, Direct Detection EIA 04/13/23 * O & P Exam, Routine 04/13/23 * Clostridium Difficile PCR 04/13/23 * Enteric Panel by PCR 04/13/23 [facility] Evaluation + Plan note Future Appointments Appointment Date:06/10/2023 10:40:00 AM Scheduled Provider:Nereyda Gomez CNP Location:[facility] Appointment Type:[facility] Follow Up Diagnostic Tests Pending * O & P Exam, Routine 04/15/23 * Giardia lamblia, Direct Detection EIA 04/15/23 [facility] Future Appointments Appointment Date:09/13/2023 10:40:00 AM Scheduled Provider:Nereyda Gomez CNP Location:[facility] Appointment Type:BAD Follow Up [facility] Evaluation + Plan note Future Appointments Appointment Date:10/14/2023 02:20:00 PM Scheduled Provider:Nereyda Gomez CNP Location:[facility] Appointment Type:[facility] Follow Up Future Scheduled Tests Laboratory* CBC w/ Auto Diff 10/01/23 * Comprehensive Metabolic Panel 10/01/23 * Thyroid Stimulating Hormone 10/01/23 [facility] Evaluation + Plan note Future Appointments Appointment Date:12/09/2023 02:00:00 PM Scheduled Provider:Nereyda Gomez CNP Location:[facility] Appointment Type:BAD Follow Up Future Scheduled Tests Laboratory* CBC w/ Auto Diff 10/01/23 * Comprehensive Metabolic Panel 10/01/23 * Thyroid Stimulating Hormone 10/01/23 [facility] Hospital course Narrative No data available for this section [facility] Hospital Discharge instructions No data available for this section [facility] No data available for this section [facility] Summary Purpose Family History No Family [...] and content) DATE CREATED AUTHOR 02/09/2019 [facility] DATE CREATED AUTHOR AUTHOR'S ORGANIZ ATION 03/28/2023 [facility] DATE CREATED AUTHOR AUTHOR'S ORGANIZ ATION 01/24/[address] [facility] DATE CREATED AUTHOR AUTHOR'S ORGANIZ ATION 06/04/2024 [facility] DATE CREATED AUTHOR AUTHOR'S ORGANIZ ATION 06/07/2024 [facility] Care Team (unrecognized sect ion and content) Personnel Name: Van Sung MD Address: [address] [place] [address] Personnel Name: Van Sung MD Address: [address] [place], [place] [address], [place] [address] Personnel Name: Van Sung MD Address: Address: [address] [place], [place] [address] [address] Personnel Name: Van Sung MD Address: Address: [address] [place], [place] [address], [place] [address] Personnel Name: Van Sung MD Address: Address: [address] [place] [address] [place], [place] [address] Personnel Name: Van Sung MD Address: Address: [address] [place] [address] [place], [place] [address] Personnel Name: Van Sung MD Address: Address: [address] [place], [place] [address], [place] [address] Personnel Name: Van Sung MD Address: Address: [address] [place], [place] [address], [place] [address] Personnel Name: Van Sung MD Address: Address: [address] [place], [place] [address], [place] [address] Personnel Name: Van Sung MD Address: Address: [address] [place] [id number] FOR RECORDS PERTAINING TO PATIENTS WHO [...] THE PRIMARY CLINICAL RECORDS. [facility] [employer] [facility]. provides no warranty or guarantee of the accuracy or completeness of information in this document.
== END 2024-06-09 08:56 | disposition home or self-care (01) ==
LOC: CARD 08:55
PROVIDERS: PCP Family Medicine; Visit Provider Internal Medicine Interventional Cardiology
DX: I35.0 Nonrheumatic aortic (valve) stenosis (principal); I27.22 Pulmonary hypertension due to left heart disease; I31.39 Other pericardial effusion (noninflammatory)
CPT/HCPCS: 93306

== ENCOUNTER 2024-06-19 08:40 | Outpatient (OUT) | payer MEDICARE, SELFPAY ==
--- OUTSIDE RECORDS SUMMARY | 2024-06-19 09:00 | XMS_ITS | CCD ---
Author Organization [facility] Care Team Providers Care Hall Director Name Role Phone PHYSICIAN, DEFAULT Admitting Unavailable PHYSICIAN, DEFAULT Attending Unavailable VAN SUNG Primary Care Unavailable Van Sung Primary Care Physician [phone] HOY ., DR ARAUJO Primary Care Unavailable HOY ., DR ARAUJO Consulting Unavailable HOY ., DR ARAUJO Attending Unavailable HOY ., DR ARAUJO Admitting Unavailable ZIEBER, DR CLOVER Zimmer Consulting Unavailable HO-CHUNK, DR CRAMER Consulting Unavailable HOY ., DR ARAUJO Primary Care Unavailable HO-CHUNK, DR CRAMER Attending Unavailable HO-CHUNK, DR CRAMER Admitting Unavailable HO-CHUNK, DR CRAMER Consulting Unavailable HOY ., DR ARAUJO Primary Care Unavailable HO-CHUNK, DR CRAMER Attending Unavailable HO-CHUNK, DR CRAMER Admitting Unavailable HOY ., DR ARAUJO Consulting Unavailable HOY ., DR ARAUJO Primary Care Unavailable HOY ., DR ARAUJO Attending Unavailable HOY ., DR ARAUJO Admitting Unavailable HO-CHUNK, DR CRAMER Consulting Unavailable HOY ., DR ARAUJO Primary Care Unavailable HO-CHUNK, DR CRAMER Attending Unavailable HO-CHUNK, DR CRAMER Admitting Unavailable HOY ., DR ARAUJO Consulting Unavailable HOY ., DR ARAUJO Primary Care Unavailable HOY ., DR ARAUJO Attending Unavailable HOY ., DR ARAUJO Admsegun Unavailable THUY, ALSTON Consulting Unavailable HOY ., DR ARAUJO Primary Care Unavailable ALIGAMALIEL Attending Unavailable ALI, ALSTON Admitting Unavailable HOY [...] CHICAS Attending Unavailable BARRIE BRASWELL Attending Unavailable AVIVA, ROBINSON Marroquin Attending Unavailable ROBINSON CHICAS Attending Unavailable ROBINSON CHICAS Attending Unavailable MOUKARBFABRIZIO, CLARIBEL Attending Unavailable MOUKARBEL, CLARIBEL Attending Unavailable MOUKARBELCLARIBEL Attending Unavailable MOUKARBELCLARIBEL Referring Unavailable RUTHIE LINDA Attending Unavailable DANA APARICIO Attending Unavailable MOUKAGIANNI, CLARIBEL Attending Unavailable Allergies Allergy Classification Reported Allergen(s) Allergy Type Date of Onset Reaction(s) Facility (14 sources) Aminolevulinic Acid; 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: [aminolevulinic acid] Drug Allergy 11-04-20 13 Unknown [facility] Repository (1 source) NITRO PATCH; 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: [NITRO PATCH] Propensity to adverse reactions (disorder) 03-18-20 12 [facility] Repository (12 sources) Contrast media; 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: [Contrast Dye] Drug allergy Unknown (qualifier value) [facility] (12 sources) Hmg-Coa Reductase Inhibitors (Statins); 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: [statins] Allergy to substance Unknown [facility] (20 sources) Nitroglycerin; 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: [nitroglycerin] Drug Allergy 02-23-20 Unknown (qualifier value) [facility] (2 sources) black walnut pollen extract; 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: [RSIQUHH-SJP-BJD REDUCTASE INHIBITORS] Drug Allergy 04-21-20 17 [facility] Repository (1 source) Iodine (And Iodine Containting Drugs) Drug allergy (disorder) 05-28-20 16 [facility] Repository (1 source) Aminolevulinic Acid; 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: [aminolevulinic acid] Drug Allergy 11-04-20 13 [facility] Repository (1 source) Nitroglycerin; 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: [Nitroglycerin Patch] Drug Allergy [facility] Repository (1 source) IODINATED CONTRAST MEDIA; 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: [IODINATED CONTRAST MEDIA] Propensity to adverse reactions to drug (disorder) 07-17-20 [facility] Repository Medications Current Medications Medication Drug [...] day(s), # 90 cap(s), Refills(s) 0, Pharmacy: [facility]/pharmacy #[id number], 185, cm, 06/10/23 10:45:00 EDT, Height/Length Dosing, 97, kg, 06/10/23 10:45:00 EDT, Weight Dosing Start Date: 06/10/23 Stop Date: 09/08/23 Status: Ordered Start: 08-28-2020 take 1 capsule by [facility] once daily Align 4 mg oral capsule 4 mg = 1 cap(s), Oral, Daily, Take after completing the Antibiotics course, # 28 cap(s), Refills(s) 0, [id number] 185, cm, 08/28/20 12:05:00 EDT, [...] Daily Prior to colonoscopy Per physician's instructions, [facility]/pharmacy #[id number], 185, cm, 03/31/22 9:58:00 EDT, [...] Date: 01/09/19 Status: Ordered 60 actuat tiotropium 0.88025 mg/actuat inhalation spray (10 sources) Anticholinergic Start: [...] water, # 160 cap(s), Refills(s) 1, Pharmacy: [facility]/pharmacy #[id number], 185, cm, 08/28/20 12:05:00 EDT, [...] 3B] Onset: 07-17-2022 Congestive heart failure; nonhypertensive (2 sources) Chronic diastolic (congestive) heart failure; 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: [Chronic diastolic (congestive) heart failure] Onset: 11-17-2023 Chronic Coronary atherosclerosis and other heart disease (2 sources) Atherosclerotic heart disease of [place] coronary artery without angina pectoris; 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: [Atherosclerotic heart disease of [place] coronary artery without angina pectoris] Onset: 06-05-2024 Chronic Deficiency and other anemia (1 source) [...] unspecified; 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: [Vitamin D deficiency, unspecified] Onset: 06-07-2024 Chronic Other and unspecified benign neoplasm (16 [...] fibrillation; 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: [Longstanding persistent atrial fibrillation] Onset: 06-05-2024 Unclassified (1 source) Other pericardial effusion (noninflammatory); [...] CAUSE DX CLASS ELSEWHERE] Onset: 08-27-2022 Episodic Malaise and fatigue (2 sources) Weakness; 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: [Other fatigue] Onset: 04-30-2022 Episodic Other aftercare (1 source) jail (current) use of aspirin; 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: [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] Onset: 08-27-2022 Episodic Other aftercare (1 source) 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; 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: [MOLD TOOLER CURRNT USE ANTICOAGULANTS] Onset: 08-27-2022 Episodic Other aftercare (1 source) Other [facility] (current) drug therapy; 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: [OTH MOLD TOOLER CURRENT DRUG THERAPY] Onset: 08-27-2022 Episodic Other [...] (noninflammatory); 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: [Other pericardial effusion (noninflammatory)] Onset: 06-05-2024 Urinary tract infections (1 source) Urinary tract infection, site not specified; 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: [UTI SITE NOT SPECIFIED] Onset: 08-27-2022 Episodic Results Test Name Value Interpretation Reference Range Facility 3606-14-2024 36 Patients called and stating that dr. Linda told her to call and let him know that her husbands blood pressure is better and she would like a call back. [facility] 36on 06-09-2024 36 Spoke with patient's Shanna and made sure she understood to increase labetalol per Dr. Linda. She also understands not to resume hydralazine. [facility] 36on 06-07-2024 36 I'm Stephanie from Dr. Puga's office with Cardiology. Patient's daughter called and wanted to know if Dr. Linda had restarted patient's hydralazine- NOT hydroxyzine. I don't see in the note that it was restarted. Dr. Linda, or someone from his office- can you clarify this for me? Thanks so much. [facility] Follow-Upon 06-07-2024 Follow-Up [id number] LauracarlNadir Joy 1940 M Date Provider Department Center 06/07/2024 RUTHIE OWEN [facility] NEPHRO Comprehensiv Family History Problem Relation Age of Onset Coronary artery disease Father Family Status - Relation Status Age at Father Level of Service:00808 HI OFFICE/OUTPATIENT ESTABLISHED MOD MDM 30 MIN () Reason for Visit and Comments: Follow-up [486412] [facility] Telephoneon 06-07-2024 Telephone [id number] AbrannathanielNadir Joy 1940 M Date Provider Department Center 06/07/2024 IRIS FRANZ [facility] NEPHRO Comprehensiv Family History Problem Relation Age of Onset Coronary artery disease Father Family Status - Relation Status Age at Father [facility] Office Visiton 06-05-2024 Follow-up visit [id number] HakeemnereidaNadir Joy 1940 M [facility] Provider Department Center 06/05/2024 367-CLARIBEL PUGA [facility] Family History Problem Relation Age of Onset Coronary artery disease Father Family Status - Relation Status Age at Father Level of Service:35355 HI OFFICE/OUTPATIENT ESTABLISHED MOD MDM 30 MIN [facility] 05-17-2024 36 Faxed lab orders 05/17/24 [facility] 36on 05-15-2024 36 Patient states that he needs his blood work to go to [facility] before his appointment on 05/31/24. [facility] 3605-10-2024 36 LM on for patient or his to return my call. [facility] 36on 05-08-2024 36 Patient's called with concerns of elevated BP since hydralazine was stopped at last apt. She said sometimes it's very good - 110/60's and sometimes 152/70. He's scheduled to see you in a few weeks. Did you want to change anything? Please advise. Thanks. [facility] 36on 04-04-2024 36 Regarding blood work from 04/03/2024: MD Stephanie Kelley MA Stable renal function. Continue same treatment and follow-up as planned. Patient's made aware. [facility] Orders Onlyon 03-21-2024 Orders Only [id number] Nadir Heredia 1940 M Date Provider Department Center 03/21/2024 LUCRETIA BENZ MILKA [facility] Family History Problem Relation Age of Onset Coronary artery disease Father Family Status - Relation Status Age at Father [facility] Office Visiton 03-03-2024 Follow-up visit [id number] Nadir Heredia 1940 M Date Provider Department Center 03/03/2024 CLARIBEL VILLALOBOS Family History Problem Relation Age of Onset Coronary artery disease Father Family Status - Relation Status Age at Father Level of Service:56236 HI OFFICE/OUTPATIENT ESTABLISHED MOD MDM 30 MIN Reason for Visit and Comments: Follow-up [508680] [facility] 36on 12-29-2023 36 Called and spoke with patient and rescheduled patients appointment from 05/31 to 06/07. [facility] 36on 12-28-2023 36 Called patient lvm to contact the office back to reschedule appointment. [facility] Follow-Upon 11-17-2023 Follow-Up [id number] Steen 1940 M Date Provider Department Center 11/17/2023 RUTHIE OWEN [facility] NEPHRO Comprehensiv Family History Problem Relation Age of Onset Coronary artery disease Father Family Status - Relation Status Age at Father Level of Service:21304 HI OFFICE/OUTPATIENT ESTABLISHED MOD MDM 30 MIN (GC) Reason for Visit and Comments: Follow-up [066042] Chronic Kidney Disease [176] [facility] Lab Reportson 10-21-2023 Lab Reports [id number] #1.00TIFF Normal [facility] Gastroenterology Office/Clin ic Noteon 10-18-2023 [...] fiber supplem (more content not included)... Normal [facility] Comment on above: Result Comment: Elec tronically Signed By: Nereyda Gomez CNP\.br\Date and Time Signed: 10/18/23 11:30 EST Ambulatory Visit Summaryon 1 12-14-2022 Ambulatory Visit Summary NADIR HEREDIA Joy :1940 Visit Date:10/14/2023 Ambulatory Visit Instructions Your [...] PM EST With: Nereyda Gomez CNP Where: [facility] Normal [facility] Patient Educationon 10-14-20 23 Patient [...] as fried or sweet foods. These include [place] fries, hamburgers, cookies, candies, and soda. ? Drink enough fluid to keep your urine pale yellow. General instructions ? Exercise regularly or as told by your health care provider. Try to do 150 minutes of moderate exercise each week. ? Use the bathroom when you have the urge to go. Do not hold it in. ? Take tmoo-zxb-ktgkcyw and prescription medicines only as told by [...] keep your urine pale yellow. ? Take ecsn-wow-apsvdnf and prescription medicines only as told by your health care provider. This includes any fiber supplements. This information is not intended to replace advice given to you by your health care provider. Make sure you discuss any questions you have with your health care provider. Document Revised: 09/18/2020 Document Reviewed: 09/18/2020 [employer] Patient Education ? 2022 [employer]. [facility] 36on 10-12-2023 36 Patient called to make you aware that he was in [facility] ED on (Wednesday) for SOB. He wanted you to look over his records. I have uploaded them all into his social media marketer for your review. His BNP is increased to 4000 and was previously 2600 about 1 month ago. Looks like they gave him extra lasix in the ED and recommended he follow up with Dr. Sung outpatient. Can you please review and let me know if you'd like anything done/ordered? Thanks. [facility] XR Abdomen 2 Viewson 023 XR [...] mGy = . DAP = . Normal [facility] Lab Reportson 10-04-2023 Lab Reports [id number] 1#1.00TIFF Normal [facility] RAD - MISCon 10-04-2023 RAD - MISC [id number] #1.00TIFF Normal [facility] Ambulatory Visit Summaryon 1 12-01-2022 Ambulatory Visit [...] PM EST With: Nereyda Gomez CNP Where: [facility] Invalid Interpretation Code Abdominal cramping [facility] Consent for Treatmenton 09-15 Consent for Treatment [id number] #1.00TIFF Normal [facility] Gastroenterology Office/Clin ic Noteon 10-01-2023 [...] educated t (more content not included)... Normal [facility] Comment on above: Result Comment: [...] Bulgur wheat. Millet. Quinoa. Bran muffins. Popcorn. [place] wafer crackers. Meats and other proteins [place] beans, kidney beans, and mendez beans. Soybeans. [...] Cream cheese. Sour cream. Fats and oils [place]. Beverages Soft drinks. Other foods Cakes and [...] provider. Document Revised: (more content not included)... [facility] 36on 09-20-2023 36 Called and spoke with and rescheduled appointment and informed her patient would need to get labs done. [facility] 36 Patients called in to reschedule appointment from 09/08 [facility] Office Visiton 09-17-2023 Follow-up visit [id number] Nadir Heredia 1940 Date Provider Department Center 09/17/2023 CLARIBEL VILLALOBOS [facility] Family History Problem Relation Age of Onset Coronary artery disease Father Family Status - Relation Status Age at Father Level of Service:32074 HI OFFICE/OUTPATIENT ESTABLISHED MOD MDM 30-39 MIN Reason for Visit and Comments: Follow-up [366743] [facility] HPon 08-31-2023 [facility] Cardiology [facility] Subjective Nadir Heredia is a 83 [...] extremity edema. He was admitted to the [facility] in August 2022 due to hyponatremia, hyperkalemia and acute kidney injury, leukocytosis secondary to COVID-19 causing dehydration. I saw him on 05/24/2023 and the office and he had significant evidence of volume overload by exam and echocardiogram. I intensified his diuretic regimen. He ended up getting admitted to the [facility] with acute heart failure exacerbation and [...] Allergies Allergen Reactions Iodinated Contrast Media Nitroglycerin Qjxmkye-Txh-Ftt Reductase Inhibitors Medications Current Outpatient Medications: acyclovir [...] Take 1 ta (more content not included)... [facility] NURSNOTEon 08-31-2023 NURSNOTE Pt performed and passed bedside swallow study. RN educated pt on d/c instructions. RN encouraged pt to voice any questions or concerns. Pt verbalizes no questions or concerns at this time. Pt was wheeled off of unit with all of belongings. [facility] Telephoneon 08-24-2023 Telephone [id number] Nadir Heredia 1940 M Date Provider Department Center 08/24/2023 RABIA KONG [facility] Family History Problem Relation Age of Onset Coronary artery disease Father Family Status - Relation Status Age at Father [facility] Office Visiton 07-21-2023 Follow-up visit [id number] Nadir Heredia 1940 M Date Provider Department Center 07/21/2023 CLARIBEL VILLALOBOS MILKA [facility] Family History Problem Relation Age of Onset Coronary artery disease Father Family Status - Relation Status Age at Father Level of Service:03517 HI OFFICE/OUTPATIENT ESTABLISHED MOD MDM 30-39 MIN Reason for Visit and Comments: Follow-up [078032] [facility] Ambulatory Visit Summaryon 0 06-10-2023 Ambulatory Visit [...] AM EDT With: Nereyda Gomez CNP Where: [facility] Normal [facility] Gastroenterology Office/Clin ic Noteon 06-10-2023 Gastroenterology Office/Clinic Note HPI Staff Nadir is an 83 y.o. male here for 2 month follow up He continues with intermittent diarrhea. He states he's been able to hold stool until reaches bathroom. He states he has terrible gas recently hospitalized at [facility] for heart failure He continues with [...] [facility] (more content not included)... Normal [facility] Comment on above: Result Comment: Lio madison Signed By: Nereyda Gomez CNP.mary\Date and Time Signed: 06/10/23 11:02 EDT Patient [...] liquor (44 mL). General instructions ? Take uywn-sun-wfwpjxd and prescription medicines only as told by [...] 02/19/2021 D (more content not included)... Normal [facility] Giardia, Direct, EIAon 04-22 G. lamblia Ag IA Ql (Stl) Negative Invalid Interpretation Code Negative [facility] Comment on above: Result Comment: Perf ormed at: [address] [id number] PhD Huan Vyas Performed By: #### 3 [id number], [id number], [id number], [id number], [id number], [id number] ####[facility] [address] [place] [address] O & P EXAM, ROUTINE, REFLEXo n 04-22-2023 Ova and parasites identified Concentration Nom (Stl) Comment Invalid Interpretation Code [facility] Comment on above: Result Comment: No o va, cysts, or parasites seen. One negative specimen does not rule out the possibility of a parasitic infection. Performed at: [address] [id number] PhD Huan Vyas Performed By: #### 3 [id number], [id number], [id number], [id number], [id number], [id number] ####[facility] [address] [place] [address] O & P Exam, Routineon 2022 Ova and parasites identified LM Nom (Unsp spec) Final report Invalid Interpretation Code [facility] Comment on above: Result Comment: Thes e results were obtained using wet preparation(s) and trichrome stained smear. This test does not include testing for Cryptosporidium parvum, Cyclospora, or Microsporidia. Performed at: [address] [id number] PhD Huan Vyas Performed By: #### 3 [id number], [id number], [id number], [id number], [id number], [id number] ####[facility] [address] [place] [address] CDiff PCRon 04-15-2023 CDiff PCR Unable to perform test due to consistency of stool. C. Difficile testing will only be performed on diarrheal (unformed) stool unless ileus due to C. difficile is expected. Reference: Clinical Practice Guidelines for Clostridium difficile Infection in Adults, Infection and Hospital Epidemiology March 2010, Vol 31, No 5. Normal [facility] Cdiff Specimen Acceptable Unacceptable Normal [facility] Comment on above: Performed By: #### 3 [id number], [id number], [id number], [id number], [id number], [id number] ####[facility] [address] [place] [address] Order Cancelled YES Normal [facility] Comment on above: Performed By: #### 3 2935205, [id number], [id number], [id number], [id number], [id number] ####[facility] [address] [place] [address] Enteric Panel by PCRon 04-15 C. coli+jejuni+upsaliens is DNA SULTANA+non-probe Ql (Stl) Not detected Normal [facility] Comment on above: Result Comment: Test ing was performed utilizing reverse restaurant district manager (RT), polymerase chain reaction (PCR), and array [...] nulcleic acid test. Performed By: #### 3 [id number], 23163455, [id number], [id number], [id number], [id number] ####[place] [address] [place] [id number] E. coli stx1+stx2 genes SULTANA+non-probe Ql (Stl) Negative Normal [facility] Comment on above: Performed By: #### 3 4338058, 25859173, [id number], 17944471, 8431945802, 27231914 ####[facility] [address] [place] [address] Enteric Panel by PCR Negative Normal [facility] Enteric Panel Intrl QC Pass Normal [facility] Comment on above: Result Comment: Test ing was performed utilizing reverse restaurant district manager (RT), polymerase chain reaction (PCR), and array [...] 1 and 2. Performed By: #### 3 [id number], 97506046, [id number], 35604750, [id number], [id number] ####[facility] [address] [place] [address] Norovirus genogroup I+II RNA SULTANA+non-probe Ql (Stl) Not detected Normal [facility] Comment on above: Performed By: #### 3 4777746, 69840217, [id number], 60510421, [id number], [id number] ####[facility] [address] [place] [address] Rotavirus A RNA SULTANA+non-probe Ql (Stl) Not detected Normal [facility] Comment on above: Performed By: #### 3 7369206, 57869790, [id number], 27249918, [id number], 01342383 ####[place] [address] [place] [id number] S. enterica+bongori DNA SULTANA+non-probe Ql (Stl) Not detected Normal [facility] Comment on above: Result Comment: This test result should be correlated with clinical presentations and medical history by a healthcare provider to determine its clinical significance. Performed By: #### 3 7564387, 30340053, [id number], 76167352, [id number], [id number] ####[place] [address] [place] [address] Shigella species+EIEC invasion plasmid antigen H ipaH gene SULTANA+non-probe Ql (Stl) Not detected Normal [facility] Comment on above: Performed By: #### 3 8339444, 50329165, [id number], 79775840, [id number], 76328068 ####[facility] [address] [place] [address] V. cholerae+parahaemolyt icus+vulnificus DNA SULTANA+non-probe Ql (Stl) Not detected Normal [facility] Comment on above: Performed By: #### 3 3604796, 23341952, [id number], 07399801, [id number], 64590656 ####[facility] [address] [place] [address] Y. enterocolitica DNA SULTANA+non-probe Ql (Stl) Not detected Normal [facility] Comment on above: Performed By: #### 3 7282944, 61305306, [id number], 17549516, [id number], [id number] ####[facility] [address] [place] [address] Fecal WBC Lactoferrinon Fecal WBC Lactoferrin Negative Normal Negative [facility] Comment on above: Result Comment: The semi-quantitative detection of elevated levels of fecal lactoferrin is a marker for fecal leukocytes and an indication of intestinal inflammation. Performed By: #### 3 9054974, 24698899, [id number], 19997554, [id number], 94987211 ####[facility] [address] [place] [address] MICRO OTHER TESTSOrdered By: Francisco Bolanos on 04-15-2023 Fecal WBC Lactoferrin Negative (04/15/23 7:00 AM) Normal Negative [facility] Man Sero Ambulatory Visit Summaryon 0 04-13-2023 [...] AM EDT With: Nereyda Gomez CNP Where: [facility] Normal [facility] Auto Diffon 04-13-2023 Basophils/100 WBC (Bld) 0.9 % Normal 0.0-2.0 [facility] Comment on above: Order Comment: Order Added by Discern Expert. Performed By: #### 1 [id number], 8340559, 7182416, 0983260 ####[facility] [address] [place] [address] Basophils/Leukocytes Auto (Bld) [Pure # fraction] 0.1 E9/L Normal 0.0-0.2 [facility] Comment on above: Order Comment: Order Added by Discern Expert. Performed By: #### 1 1142473, 7694358, 9023462, 8782721 ####[facility] [address] [place] [address] Eosinophils/100 WBC (Bld) 5.1 % Normal 0.0-8.0 [facility] Comment on above: Order Comment: Order Added by Discern Expert. Performed By: #### 1 [id number], 4056902, 8124244, [id number] ####[facility] [address] [place] [address] Eosinophils/Leukocyte s Auto (Bld) [Pure # fraction] 0.3 E9/L Normal 0.0-0.5 [facility] Comment on above: Order Comment: Order Added by Discern Expert. Performed By: #### 1 [id number], 2141502, 5548725, 3739990 ####[address] [place] [address] Lymphocytes/100 WBC (Bld) 13.6 % Low 14.0-50.0 [facility] Comment on above: Order Comment: Order Added by Discern Expert. Performed By: #### 1 [id number], 1252249, 0254194, 0187723 ####[address] [address] Lymphocytes/Leukocyte s Auto (Bld) [Pure # fraction] 0.9 E9/L Low 1.0-4.0 [facility] Comment on above: Order Comment: Order Added by Discern Expert. Performed By: #### 1 0845128, 8011872, 5810461, 8799963 ####[address] [address] Monocytes/100 WBC (Bld) 11.9 % Normal 4.0-14.0 [facility] Comment on above: Order Comment: Order Added by Discern Expert. Performed By: #### 1 7566208, 2592332, 1030708, 6092487 ####[address] [address] Monocytes/Leukocytes Auto (Bld) [Pure # fraction] 0.8 E9/L Normal 0.2-1.0 [facility] Comment on above: Order Comment: Order Added by Discern Expert. Performed By: #### 1 1019035, 1852544, 0246535, 3134466 ####[address] [address] Neutrophils/100 WBC (Bld) 68.5 % Normal 36.0-75.0 [facility] Comment on above: Order Comment: Order Added by Discern Expert. Performed By: #### 1 8055078, 5839869, 3271280, 8733165 ####[address] [place] [address] Neutrophils/Leukocyte s Auto (Bld) [Pure # fraction] 4.6 E9/L Normal 2.0-7.5 [facility] Comment on above: Order Comment: Order Added by Discern Expert. Performed By: #### 1 0753058, 1267941, 6938036, 1813359 ####[address] [place] [address] CBC w/ Auto Diffon 3 Erythrocyte distribution width (RBC) [Ratio] 14.7 % High 10.9-14.2 [facility] Comment on above: Performed By: #### 1 8482420, 5942903, 7916235, 2941262 ####[address] [place] [address] Hematocrit (Bld) [Volume fraction] 40.3 % Normal 37.7-49.0 [facility] Comment on above: Performed By: #### 1 1357197, 4206827, 3236252, 5924129 ####[address] [place] [id number] Hemoglobin (Bld) [Mass/Vol] 13.7 g/dL Normal 13.5-17.5 [facility] Comment on above: Performed By: #### 1 1008493, 6769467, 9191824, 4744161 ####[address] [place] [address] MCH (RBC) [Entitic mass] 33.9 pg Normal 27.0-34.0 [facility] Comment on above: Performed By: #### 1 4660561, 8866859, 6648859, 6150568 ####[address] [address] MCHC (RBC) [Mass/Vol] 34.0 g/dL Normal 31.4-36.0 [facility] Comment on above: Performed By: #### 1 2552410, 5655858, 0187456, 5819902 ####[address] [place] [address] MCV (RBC) [Entitic vol] 99.8 fL Normal 80.0-100.0 [facility] Comment on above: Performed By: #### 1 0773384, 2062313, 6585502, 2579168 ####[facility] [address] [place] [address] Platelet mean volume (Bld) [Entitic vol] 9.8 fL Normal 6.4-10.8 [facility] Comment on above: Performed By: #### 1 2794123, 0049597, 3875096, 4997662 ####[facility] [address] [place] [address] Platelets (Bld) [#/Vol] 161.0 E9/L Normal 150.0-500.0 [facility] Comment on above: Performed By: #### 1 6257786, 8173659, 2113861, 2442701 ####[facility] [address] [place] [address] RBC (Bld) [#/Vol] 4.0 E12/L Low 4.3-5.9 [facility] Comment on above: Performed By: #### 1 1936352, 9754371, 1985324, 7327046 ####[facility] [address] [place] [address] WBC corrected for nucl RBC Auto (Bld) [#/Vol] 6.7 E9/L Normal 4.0-11.0 [facility] Comment on above: Performed By: #### 1 3715602, 8877635, 4172347, 0834669 ####[facility] [address] [place] [address] CHEMISTRYOrdered By: SYSTEM SYSTEM on 04-13-2023 Albumin [...] 37 mL/min/1.73 m2 Low >=59mL/min/1. 73 m2 [facility] Chem S Globulin (S) [Mass/Vol] 2.8 g/dL [...] 04-13-2023 Albumin [Mass/Vol] 3.8 g/dL Normal 3.3-5.0 [facility] Comment on above: Performed By: #### 1 1097796, 6311866, 8959791, 4382234 ####[address] [place] [address] Albumin/Globulin (S) [Mass conc ratio] 1.4 Normal 1.1-2.2 [facility] Comment on above: Performed By: #### 1 7041076, 4493805, 9940351, 4513590 ####[facility] [address] [place] [address] ALP [Catalytic activity/Vol] 61 Int._Unit/L Normal 21-98 [facility] Comment on above: Performed By: #### 1 3042139, 7582634, 0107593, 3784525 ####[facility] [address] [place] [address] ALT No additional P-5'-P [Catalytic activity/Vol] 16 Int._Unit/L Normal 6-46 [facility] Comment on above: Performed By: #### 1 9274394, 0128173, 5232257, 4847431 ####[facility] [address] [place] [address] Anion gap [Moles/Vol] 13 mmol/L Normal 6-16 [facility] Comment on above: Performed By: #### 1 0346556, 1852584, 7433661, 4783647 ####[address] [place] [address] AST [Catalytic activity/Vol] 18 Int._Unit/L Normal 5-43 [facility] Comment on above: Performed By: #### 1 5835629, 8334030, 8339381, 7904009 ####[facility] [address] [place] [address] Bilirubin [Mass/Vol] 0.5 mg/dL Normal 0.0-1.1 [facility] Comment on above: Performed By: #### 1 0405900, 8912356, 2913409, 5483775 ####[address] [place] [address] Calcium [Mass/Vol] 8.8 mg/dL Low 8.9-11.1 [facility] Comment on above: Performed By: #### 1 1137881, 7666726, 7725931, 8006797 ####[facility] [address] [address] Chloride [Moles/Vol] 104 mmol/L Normal 101-111 [facility] Comment on above: Performed By: #### 1 1617064, 7119959, 6516455, 4059931 ####[facility] [address] [place] [place] [address] CO2 [Moles/Vol] 28 mmol/L Normal 21-31 [facility] Comment on above: Performed By: #### 1 3404877, 0290317, 4465184, 8888579 ####[facility] [address] [facility] [place] [address] Creatinine [Mass/Vol] 1.8 mg/dL High 0.5-1.3 [facility] Comment on above: Performed By: #### 1 2590935, 9254774, 5919087, 0519450 ####[facility] [address] [place] [address] Globulin (S) [Mass/Vol] 2.8 g/dL Normal 1.4-4.0 [facility] Comment on above: Performed By: #### 1 0317059, 2121566, 7000805, 7393737 ####[facility] [address] [facility] [place] [address] Glucose [Mass/Vol] 111 mg/dL Normal 55-199 [facility] Comment on above: Result Comment: If t his glucose result represents a fasting glucose, interpretation should refer to the following reference range: 55-99 mg/dL Performed By: #### 1 8578048, 6088440, 0858488, 9188596 ####[facility] [address] [facility] [place] [address] Potassium [Moles/Vol] 4.1 mmol/L Normal 3.5-5.3 [facility] Comment on above: Performed By: #### 1 6466710, 0743404, 1516153, 6077767 ####[facility] [address] [facility] [place] [address] Protein [Mass/Vol] 6.6 g/dL Normal 6.0-7.8 [facility] Comment on above: Performed By: #### 1 0652813, 7293173, 0083756, 2070728 ####[facility] [address] [place] [address] Sodium [Moles/Vol] 141 mmol/L Normal 135-145 [facility] Comment on above: Performed By: #### 1 8284478, 6272176, 1831346, 6400358 ####[facility] [address] [place] [address] Urea nitrogen [Mass/Vol] 24 mg/dL High 5-21 [facility] Comment on above: Performed By: #### 1 7768753, 5984665, 0267810, 5896257 ####[facility] [address] [place] [address] Urea nitrogen/Creatinine [Mass ratio] 13 No Units Normal 10-20 [facility] Comment on above: Performed By: #### 1 6088945, 9982039, 0640125, 3622469 ####[facility] [address] [place] [address] Consent for Treatmenton 03-17 Consent for Treatment [id number] #[id number]:127 Normal [facility] Gastroenterology Office/Clin ic Noteon 04-13-2023 [...] to have repeat colonoscopy in 5 years (2027). Family history of colon polyps: Denies. Personal [...] 4 mg= (more content not included)... Normal [facility] Comment on above: Result Comment: Elec tronically Signed By: Nereyda Gomez CNP\.br\Date and Time Signed: 04/13/23 14:37 EDT HEMATOLOGYOrdered By: SYSTEM SYSTEM on 04-13-2023 Basophils/100 WBC (Bld) 0.9 % Normal 0.0 - 2.0 % [facility] HemeAutoSS Basophils/Leukocytes Auto (Bld) [Pure # fraction] [...] 161.0 E9/L Normal 150.0 - 500.0 E9/L [facility] HemeAutoSS RBC (Bld) [#/Vol] 4.0 E12/L Low 4.3 - 5.9 E12/L [facility] HemeAutoSS WBC corrected for nucl RBC Auto (Bld) [#/Vol] 6.7 E9/L Normal 4.0 - 11.0 E9/L [facility] HemeAutoSS eGFRon 04-13-2023 GFR/1.73 sq M.predicted among non-blacks MDRD (S/P/Bld) [Vol rate/Area] 37 mL/min/1.73 m2 Low >=59 [facility] Comment on above: Order Comment: Order added by Discern Expert. Result Comment: [address] kidney disease could be indicated at eGFR's of less than 60 mL/min/1.73m2. Kidney failure is indicated at less than 15 mL/min/1.73m2. Performed By: #### 1 [id number], 8404338, 9976089, 7549855 ####[facility] [address] [place] [address] ALBUMINon 03-24-2023 Albumin [Mass/Vol] 3.3 g/dL Critically low 3.4-5.0 [facility] Comment on above: Performed By: #### M ERICK Faith PHOS #### [facility] [address] [place] [address] Dr. David Magana GLYCOHEMOGLOBIN A1Con 2022 ADA RECOMMENDATION SEE BELOW Normal [facility] Comment on above: Result Comment: ADA RECOMMENDED LIMIT 4.0 - 6.0 ADA THERAPEUTIC TARGET < 7.0 ACTION SUGGESTED > 7.0 Performed By: #### A 1C #### [facility] [address] [address] [address] David Magana Glucose [Mass/Vol] 108 mg/dL Normal [facility] Comment on above: Performed By: #### A 1C #### [facility] [address] [place] [address] Dr. David Magana HbA1c (Bld) [Mass fraction] 5.4 % Normal 4.5-6.2 [facility] Comment on above: Performed By: #### A 1C #### [facility] [address] [place] [address] Dr. David Magana PHOSPHORUSon 03-24-2023 Phosphate [Mass/Vol] 3.6 mg/dL Normal 2.6-4.7 [facility] Comment on above: Performed By: #### M G, BMP, PHOS #### [facility] [address] [place] [address] Dr. David Magana PROF CHEM 8 (BAS METB)on Anion gap [Moles/Vol] 11.6 mmol/L Normal [facility] Comment on above: Performed By: #### M G, BMP, PHOS #### [facility] [address] [place] [address] Dr. David Magana Calcium [Mass/Vol] 8.9 mg/dL Normal 8.5-10.1 [facility] Comment on above: Performed By: #### M G, BMP, PHOS #### [facility] [address] [place] [address] Dr. David Magana Chloride [Moles/Vol] 107 mmol/L Normal 98-107 [facility] Comment on above: Performed By: #### M G, BMP, PHOS #### [facility] [address] [place] [address] Dr. David Magana CO2 [Moles/Vol] 30.8 mmol/L Normal 21.0-32.0 [facility] Comment on above: Performed By: #### M G, BMP, PHOS #### [facility] [address] [place] [address] Dr. David Magana Creatinine [Mass/Vol] 1.67 mg/dL Critically high 0.70-1.30 [facility] Comment on above: Performed By: #### M G, BMP, PHOS #### [facility] [address] [place] [address] Dr. David Magana EGFR-AF LATVIAN 48 mL/min/1.73m2 Critically low >=60 [facility] Comment on above: Performed By: #### M G, BMP, PHOS #### [facility] [address] [address] [address] David Magana EGFR-NON AF LATVIAN 39 mL/min/1.73m2 Critically low >=60 [facility] Comment on above: Performed By: #### M Marcell, BMP, PHOS #### [facility] [address] [address] [address] David Magana Glucose [Mass/Vol] 128 mg/dL Critically high 74-106 [facility] Comment on above: Performed By: #### M Marcell, BMP, PHOS #### [facility] [address] [address] [address] David Magana Potassium [Moles/Vol] 4.4 mmol/L Normal 3.5-5.1 [facility] Comment on above: Performed By: #### M Marcell, BMP, PHOS #### [facility] [address] [place] [address] Dr. David Magana Sodium [Moles/Vol] 145 mmol/L Normal 136-145 [facility] Comment on above: Performed By: #### M Marcell, BMP, PHOS #### [facility] [address] [address] [address] David Magana Urea nitrogen [Mass/Vol] 25.0 mg/dL Critically high 7.0-18.0 [facility] Comment on above: Performed By: #### M Marcell BMP, PHOS #### [facility] [address] [address] [address] David Magana Urea nitrogen/Creatinine [Mass ratio] 15.0 mg/mg Normal [facility] Comment on above: Performed By: #### M G, BMP, PHOS #### [facility] [address] [address] [address] David Magana VITAMIN D 25 OHon 03-24-2023 VIT D 25-OH 11.6 ng/mL [facility] Comment on above: Performed By: #### C BC #### [facility] [address] [address] [address] David Magana VIT D RANGES SEE BELOW Normal [facility] Comment on above: Result Comment: <20 ng/mL Vit D deficient 20 - <30 ng/mL Vit D insufficient 30 - 100 ng/mL Vit D sufficient >100 ng/mL Potential Toxicity Performed By: #### C BC #### [facility] [address] [place] [address] Dr. David Magana Physician Referralon 023 Physician Referral [id number] #[id number]:[id number] Normal [facility] CBC AUTO DIFFon 02-27-2023 BASO # 0.0 103/ul Normal 0.0-0.1 [facility] Comment on above: Performed By: #### ERICK Jacques, PHOS #### [facility] [address] [place] [address] Dr. David Magana Basophils/100 WBC (Bld) 0.5 % Normal 0.2-2.0 [facility] Comment on above: Performed By: #### ERICK Jacques, PHOS #### [facility] [address] [place] [address] Dr. David Magana EO # 0.7 103/ul Normal 0.0-0.7 [facility] Comment on above: Performed By: #### ERICK Jacques, PHOS #### [facility] [address] [place] [address] Dr. David Magana Eosinophils/100 WBC (Bld) 9.3 % Critically high 0.9-7.0 [facility] Comment on above: Performed By: #### ERICK Jacques, PHOS #### [facility] [address] [place] [address] Dr. David Magana Erythrocyte distribution width (RBC) [Ratio] 14.6 % Normal 11.0-15.0 [facility] Comment on above: Performed By: #### ERICK Jacques, PHOS #### [facility] [address] [place] [address] Dr. David Magana Hematocrit (Bld) [Volume fraction] 41.5 % Critically low 42.0-54.0 [facility] Comment on above: Performed By: #### M G, BMP, PHOS #### [facility] [address] [address] [address] David Magana Hemoglobin (Bld) [Mass/Vol] 13.9 g/dL Critically low 14.0-18.0 [facility] Comment on above: Performed By: #### M G, BMP, PHOS #### [facility] [address] [place] [address] Dr. David Magana IG # 0.02 10e3/ul Normal 0.00-0.03 [facility] Comment on above: Performed By: #### M G, BMP, PHOS #### [facility] [address] [place] [address] Dr. David Magana IG % 0.3 % Normal 0.0-0.5 [facility] Comment on above: Performed By: #### M G, BMP, PHOS #### [facility] [address] [place] [address] Dr. David Magana LYMPH # 1.0 103/ul Critically low 1.2-3.8 [facility] Comment on above: Performed By: #### M G, BMP, PHOS #### [facility] [address] [address] [address] David Magana Lymphocytes/100 WBC (Bld) 13.0 % Critically low 20.5-60.0 [facility] Comment on above: Performed By: #### M G, BMP, PHOS #### [facility] [address] [address] [address] David Magana MANUAL DIFF REQ NO Normal [facility] Comment on above: Performed By: #### M G, BMP, PHOS #### [facility] [address] [address] [address] David Magana MCH (RBC) [Entitic mass] 33.5 pg Normal 25.9-34.0 [facility] Comment on above: Performed By: #### M G, BMP, PHOS #### [facility] [address] [place] [address] Dr. David Magana MCHC (RBC) [Mass/Vol] 33.5 g/dL Normal 29.9-35.2 [facility] Comment on above: Performed By: #### M ERICK Faith, PHOS #### [facility] [address] [place] [address] Dr. David Magana MCV (RBC) [Entitic vol] 100.0 fL Critically high 80.0-94.0 [facility] Comment on above: Performed By: #### ERICK Jacques, PHOS #### [facility] [address] [place] [address] Dr. Dvaid Magana MONO # 0.8 103/ul Normal 0.3-0.8 [facility] Comment on above: Performed By: #### ERICK Jacques, PHOS #### [facility] [address] [place] [address] Dr. David Magana Monocytes/100 WBC (Bld) 10.1 % Normal 1.7-12.0 [facility] Comment on above: Performed By: #### ERICK Jacques, PHOS #### [facility] [address] [place] [address] Dr. David Magana NEUT # 5.0 103/ul Normal 1.4-6.5 [facility] Comment on above: Performed By: #### ERICK Jacques, PHOS #### [facility] [address] [place] [address] Dr. David Magana Neutrophils/100 WBC (Bld) 66.8 % Normal 43.0-75.0 [facility] Comment on above: Performed By: #### ERICK Jacques, PHOS #### [facility] [address] [place] [address] Dr. David Magana Platelet mean volume (Bld) [Entitic vol] 11.2 fL Normal 9.5-13.5 [facility] Comment on above: Performed By: #### ERICK Jacques, PHOS #### [facility] [address] [place] [address] Dr. David Magana PLT 187 103/ul Normal 150-450 [facility] Comment on above: Performed By: #### ERICK Jacques, PHOS #### [facility] [address] [address] [address] David Magana RBC 4.15 106/ul Critically low 4.70-6.10 [facility] Comment on above: Performed By: #### M ERICK Faith, PHOS #### [facility] [address] [address] [address] David Magana WBC 7.5 103/ul Normal 4.0-11.0 [facility] Comment on above: Performed By: #### M ERICK Faith PHOS #### [facility] [address] [address] [address] David Magana PROF 14(COMP METB)on 023 Albumin [Mass/Vol] 3.5 g/dL Normal 3.4-5.0 [facility] Comment on above: Performed By: #### A 1C #### [facility] [address] [place] [address] Dr. David Magana Albumin/Globulin [Mass ratio] 1.1 {ratio} Normal [facility] Comment on above: Performed By: #### A 1C #### [facility] [address] [place] [address] Dr. David Magana ALP [Catalytic activity/Vol] 76 U/L Normal 46-116 [facility] Comment on above: Performed By: #### A 1C #### [facility] [address] [place] [address] Dr. David Magana ALT [Catalytic activity/Vol] 23 U/L Normal 16-63 [facility] Comment on above: Performed By: #### A 1C #### [facility] [address] [place] [address] Dr. David Magana Anion gap [Moles/Vol] 13.1 mmol/L Normal [facility] Comment on above: Performed By: #### A 1C #### [facility] [address] [place] [address] Dr. David Magana AST [Catalytic activity/Vol] 17 U/L Normal 15-37 [facility] Comment on above: Performed By: #### A 1C #### [facility] [address] [address] [address] David Magana Bilirubin [Mass/Vol] 0.7 mg/dL Normal 0.2-1.0 [facility] Comment on above: Performed By: #### A 1C #### [facility] [address] [address] [address] David Magana Calcium [Mass/Vol] 9.0 mg/dL Normal 8.5-10.1 [facility] Comment on above: Performed By: #### A 1C #### [facility] [address] [address] [address] David Magana Chloride [Moles/Vol] 105 mmol/L Normal 98-107 [facility] Comment on above: Performed By: #### A 1C #### [facility] [address] [place] [address] Dr. David Magana CO2 [Moles/Vol] 29.0 mmol/L Normal 21.0-32.0 [facility] Comment on above: Performed By: #### A 1C #### [facility] [address] [address] [address] David Magana Creatinine [Mass/Vol] 1.77 mg/dL Critically high 0.70-1.30 [facility] Comment on above: Performed By: #### A 1C #### [facility] [address] [address] [address] David Magana EGFR-AF LATVIAN 45 mL/min/1.73m2 Critically low >=60 [facility] Comment on above: Performed By: #### A 1C #### [facility] [address] [address] [address] David Magana EGFR-NON AF LATVIAN 37 mL/min/1.73m2 Critically low >=60 [facility] Comment on above: Performed By: #### A 1C #### [facility] [address] [place] [address] Dr. David Magana Globulin (S) [Mass/Vol] 3.3 g/dL Normal [facility] Comment on above: Performed By: #### A 1C #### [facility] [address] [address] [address] David Magana Glucose [Mass/Vol] 135 mg/dL Critically high 74-106 T [facility] Comment on above: Performed By: #### A 1C #### [facility] [address] [address] [address] David Magana Potassium [Moles/Vol] 4.1 mmol/L Normal 3.5-5.1 [facility] Comment on above: Performed By: #### A 1C #### [facility] [address] [address] [address] David Magana Protein [Mass/Vol] 6.8 g/dL Normal 6.4-8.2 [facility] Comment on above: Performed By: #### A 1C #### [facility] [address] [address] [address] David Magana Sodium [Moles/Vol] 143 mmol/L Normal 136-145 [facility] Comment on above: Performed By: #### A 1C #### [facility] [address] [address] [address] David Magana Urea nitrogen [Mass/Vol] 31.0 mg/dL Critically high 7.0-18.0 [facility] Comment on above: Performed By: #### A 1C #### [facility] [address] [address] [address] David Magana Urea nitrogen/Creatinine [Mass ratio] 17.5 mg/mg Normal [facility] Comment on above: Performed By: #### A 1C #### [facility] [address] [address] [address] David Magana PROTIMEon 02-27-2023 INR Coag (PPP) [Relative time] 0.99 {INR} Normal [facility] Comment on above: Performed By: #### A 1C #### [facility] [address] [address] [address] David Magana INR GUIDELINES SEE BELOW Normal [facility] Comment on above: Result Comment: IDANIA RED INR: 2.0 - 3.0 CONDITIONS NOT LISTED BELOW 2.5 - 3.5 FOR PROSTHETIC HEART VALVE REPLACEMENT 2.5 - 3.5 RECURRENT THROMBOSIS Performed By: #### A 1C #### [facility] [address] [place] [address] Dr. David Magana PT Coag (PPP) [Time] 10.5 s Normal 9.0-11.6 [facility] Comment on above: Performed By: #### A 1C #### [facility] [address] [place] [address] Dr. David Magana PTTon 02-27-2023 aPTT Coag (Bld) [Time] 33.0 s Normal 22.3-36.2 [facility] Comment on above: Performed By: #### P OCGLUC #### [facility] [address] [place] [address] Dr. David Magana ALBUMINon 12-28-2022 Albumin [Mass/Vol] 3.6 g/dL Normal 3.4-5.0 [facility] Comment on above: Performed By: #### C BC #### [facility] [address] [place] [address] Dr. David Magana GLYCOHEMOGLOBIN A1Con 2022 ADA RECOMMENDATION SEE BELOW Normal [facility] Comment on above: Result Comment: ADA RECOMMENDED LIMIT 4.0 - 6.0 ADA THERAPEUTIC TARGET < 7.0 ACTION SUGGESTED > 7.0 Performed By: #### P OCGLUC #### [facility] [address] [place] [address] Dr. David Magana Glucose [Mass/Vol] 140 mg/dL Normal [facility] Comment on above: Performed By: #### P OCGLUC #### [facility] [address] [place] [address] Dr. David Magana HbA1c (Bld) [Mass fraction] 6.5 % Critically high 4.5-6.2 [facility] Comment on above: Performed By: #### P OCGLUC #### [facility] [address] [place] [address] Dr. David Magana MAGNESIUMon 12-28-2022 Magnesium [Mass/Vol] 2.3 mg/dL Normal 1.8-2.4 [facility] Comment on above: Performed By: #### P OCGLUC #### [facility] [address] [address] [address] David Magana PROF CHEM 8 (BAS METB)on Anion gap [Moles/Vol] 13.2 mmol/L Normal [facility] Comment on above: Performed By: #### P OCGLUC #### [facility] [address] [address] [address] David Magana Calcium [Mass/Vol] 9.0 mg/dL Normal 8.5-10.1 [facility] Comment on above: Performed By: #### P OCGLUC #### [facility] [address] [address] [address] David Magana Chloride [Moles/Vol] 105 mmol/L Normal 98-107 [facility] Comment on above: Performed By: #### P OCGLUC #### [facility] [address] [address] [address] David Magana CO2 [Moles/Vol] 28.9 mmol/L Normal 21.0-32.0 [facility] Comment on above: Performed By: #### P OCGLUC #### [facility] [address] [address] [address] David Magana Creatinine [Mass/Vol] 1.66 mg/dL Critically high 0.70-1.30 [facility] Comment on above: Performed By: #### P OCGLUC #### [facility] [address] [address] [address] David Magana EGFR-AF LATVIAN 48 mL/min/1.73m2 Critically low >=60 [facility] Comment on above: Performed By: #### P OCGLUC #### [facility] [address] [address] [address] David Magana EGFR-NON AF LATVIAN 40 mL/min/1.73m2 Critically low >=60 [facility] Comment on above: Performed By: #### P OCGLUC #### [facility] [address] [address] [address] David Magana Glucose [Mass/Vol] 123 mg/dL Critically high 74-106 [facility] Comment on above: Performed By: #### P OCGLUC #### [facility] [address] [address] [address] David Magana Potassium [Moles/Vol] 4.1 mmol/L Normal 3.5-5.1 [facility] Comment on above: Performed By: #### P OCGLUC #### [facility] [address] [address] [address] David Magana Sodium [Moles/Vol] 143 mmol/L Normal 136-145 [facility] Comment on above: Performed By: #### P OCGLUC #### [facility] [address] [address] [address] David Magana Urea nitrogen [Mass/Vol] 29.0 mg/dL Critically high 7.0-18.0 [facility] Comment on above: Performed By: #### P OCGLUC #### [facility] [address] [place] [address] Dr. David Magana Urea nitrogen/Creatinine [Mass ratio] 17.5 mg/mg Normal [facility] Comment on above: Performed By: #### P OCGLUC #### [facility] [address] [place] [address] Dr. David Magana URINE T PROTEIN CREAT RATIOo n 12-28-2022 UR TOTAL PROTEIN <6.0 Normal <=12.0 [facility] Comment on above: Performed By: #### M G, BMP, PHOS #### [facility] [address] [place] [address] Dr. Daivd Magana URINE CREAT 41.21 mg/dL Normal 20.00-300.00 [facility] Comment on above: Performed By: #### M G, BMP, PHOS #### [facility] [address] [place] [address] Dr. David Magana ALBUMINon 11-16-2022 Albumin [Mass/Vol] 3.3 g/dL Critically low 3.4-5.0 [facility] Comment on above: Performed By: #### C BC #### [facility] [address] [place] [address] Dr. David Magana CREATININE URINEon URINE CREAT 19.69 mg/dL Critically low 20.00-300.00 [facility] Comment on above: Performed By: #### M ERICK Faith PHOS #### [facility] [address] [place] [address] Dr. David Magana HEMOGLOBINon 11-16-2022 Hemoglobin (Bld) [Mass/Vol] 14.9 g/dL Normal 14.0-18.0 [facility] Comment on above: Performed By: #### M ERICK Faith, PHOS #### [facility] [address] [place] [address] Dr. David Magana MAGNESIUMon 11-16-2022 Magnesium [Mass/Vol] 2.2 mg/dL Normal 1.8-2.4 [facility] Comment on above: Performed By: #### C BC #### [facility] [address] [place] [address] Dr. David Magana PHOSPHORUSon 11-16-2022 Phosphate [Mass/Vol] 3.9 mg/dL Normal 2.6-4.7 [facility] Comment on above: Performed By: #### C BC #### [facility] [address] [place] [address] Dr. David Magana PROF CHEM 8 (BAS METB)on Anion gap [Moles/Vol] 11.9 mmol/L Normal [facility] Comment on above: Performed By: #### C BC #### [facility] [address] [place] [address] Dr. David Magana Calcium [Mass/Vol] 8.8 mg/dL Normal 8.5-10.1 [facility] Comment on above: Performed By: #### C BC #### [facility] [address] [place] [address] Dr. David Magana Chloride [Moles/Vol] 104 mmol/L Normal 98-107 [facility] Comment on above: Performed By: #### C BC #### [facility] [address] [place] [address] Dr. David Magana CO2 [Moles/Vol] 27.4 mmol/L Normal 21.0-32.0 [facility] Comment on above: Performed By: #### C BC #### [facility] [address] [address] [address] David Magana Creatinine [Mass/Vol] 1.68 mg/dL Critically high 0.70-1.30 [facility] Comment on above: Performed By: #### C BC #### [facility] [address] [address] [address] David Magana EGFR-AF LATVIAN 48 mL/min/1.73m2 Critically low >=60 [facility] Comment on above: Performed By: #### C BC #### [facility] [address] [address] [address] David Magana EGFR-NON AF LATVIAN 39 mL/min/1.73m2 Critically low >=60 [facility] Comment on above: Performed By: #### C BC #### [facility] [address] [place] [address] Dr. David Magana Glucose [Mass/Vol] 212 mg/dL Critically high 74-106 [facility] Comment on above: Performed By: #### C BC #### [facility] [address] [address] [address] David Magana Potassium [Moles/Vol] 4.3 mmol/L Normal 3.5-5.1 [facility] Comment on above: Performed By: #### C BC #### [facility] [address] [address] [address] David Magana Sodium [Moles/Vol] 139 mmol/L Normal 136-145 [facility] Comment on above: Performed By: #### C BC #### [facility] [address] [address] [address] David Magana Urea nitrogen [Mass/Vol] 25.0 mg/dL Critically high 7.0-18.0 [facility] Comment on above: Performed By: #### C BC #### [facility] [address] [address] [address] David Magana Urea nitrogen/Creatinine [Mass ratio] 14.9 mg/mg Normal [facility] Comment on above: Performed By: #### C BC #### [facility] [address] [place] [address] Dr. David Magana PROTEIN RAND URINEon 023 UR PROT <5.0 Normal <=11.9 [facility] Comment on above: Performed By: #### ERICK Jacques PHOS #### [facility] [address] [place] [address] Dr. David Magana US CHANI DOP LEG [...] CLOVER PEREZ Date: 2022-11-02 16:21 Normal [facility] BNPon 07-22-2022 Natriuretic peptide B (Bld) [Mass/Vol] 2143.0 pg/mL Critically high <=1,800.0 [facility] Comment on above: Performed By: #### ERICK Jacques PHOS #### [facility] [address] [place] [address] Dr. David Magana CBC AUTO DIFFon 07-22-2022 BASO # 0.0 103/ul Normal 0.0-0.1 [facility] Comment on above: Performed By: #### A 1C #### [facility] [address] [place] [address] Dr. David Magana Basophils/100 WBC (Bld) 0.3 % Normal 0.2-2.0 [facility] Comment on above: Performed By: #### A 1C #### [facility] [address] [place] [address] Dr. David Magana EO # 0.3 103/ul Normal 0.0-0.7 [facility] Comment on above: Performed By: #### A 1C #### [facility] [address] [address] [address] David Magana Eosinophils/100 WBC (Bld) 2.4 % Normal 0.9-7.0 [facility] Comment on above: Performed By: #### A 1C #### [facility] [address] [address] [address] David Magana Erythrocyte distribution width (RBC) [Ratio] 13.4 % Normal 11.0-15.0 [facility] Comment on above: Performed By: #### A 1C #### [facility] [address] [place] [address] Dr. David Magana Hematocrit (Bld) [Volume fraction] 42.7 % Normal 42.0-54.0 [facility] Comment on above: Performed By: #### A 1C #### [facility] [address] [place] [address] Dr. David Magana Hemoglobin (Bld) [Mass/Vol] 14.2 g/dL Normal 14.0-18.0 [facility] Comment on above: Performed By: #### A 1C #### [facility] [address] [place] [address] Dr. David Magana IG # 0.18 10e3/ul Critically high 0.00-0.03 [facility] Comment on above: Performed By: #### A 1C #### [facility] [address] [place] [address] Dr. David Magana IG % 1.6 % Critically high 0.0-0.5 [facility] Comment on above: Performed By: #### A 1C #### [facility] [address] [address] [address] David Magana LYMPH # 0.9 103/ul Critically low 1.2-3.8 [facility] Comment on above: Performed By: #### A 1C #### [facility] [address] [place] [address] Dr. David Magana Lymphocytes/100 WBC (Bld) 8.1 % Critically low 20.5-60.0 [facility] Comment on above: Performed By: #### A 1C #### [facility] [address] [place] [address] Dr. David Magana MANUAL DIFF REQ NO Normal [facility] Comment on above: Performed By: #### A 1C #### [facility] [address] [place] [address] Dr. David Magana MCH (RBC) [Entitic mass] 33.3 pg Normal 25.9-34.0 [facility] Comment on above: Performed By: #### A 1C #### [facility] [address] [place] [address] Dr. David Magana MCHC (RBC) [Mass/Vol] 33.3 g/dL Normal 29.9-35.2 [facility] Comment on above: Performed By: #### A 1C #### [facility] [address] [place] [address] Dr. David Magana MCV (RBC) [Entitic vol] 100.2 fL Critically high 80.0-94.0 [facility] Comment on above: Performed By: #### A 1C #### [facility] [address] [place] [address] Dr. David Magana MONO # 1.2 103/ul Critically high 0.3-0.8 [facility] Comment on above: Performed By: #### A 1C #### [facility] [address] [place] [address] Dr. David Magana Monocytes/100 WBC (Bld) 10.5 % Normal 1.7-12.0 [facility] Comment on above: Performed By: #### A 1C #### [facility] [address] [place] [address] Dr. David Magana NEUT # 8.9 103/ul Critically high 1.4-6.5 [facility] Comment on above: Performed By: #### A 1C #### [facility] [address] [place] [address] Dr. David Magana Neutrophils/100 WBC (Bld) 77.1 % Critically high 43.0-75.0 [facility] Comment on above: Performed By: #### A 1C #### [facility] [address] [address] [address] David Magana Platelet mean volume (Bld) [Entitic vol] 11.3 fL Normal 9.5-13.5 [facility] Comment on above: Performed By: #### A 1C #### [facility] [address] [address] [address] David Magana PLT 175 103/ul Normal 150-450 [facility] Comment on above: Performed By: #### A 1C #### [facility] [address] [address] [address] David Magana RBC 4.26 106/ul Critically low 4.70-6.10 [facility] Comment on above: Performed By: #### A 1C #### [facility] [address] [place] [address] Dr. David Magana WBC 11.5 103/ul Critically high 4.0-11.0 [facility] Comment on above: Performed By: #### A 1C #### [facility] [address] [place] [address] Dr. David Magana PROF 14(COMP METB)on 022 Albumin [Mass/Vol] 2.6 g/dL Critically low 3.4-5.0 [facility] Comment on above: Performed By: #### M ERICK Faith, PHOS #### [facility] [address] [place] [address] Dr. David Magana Albumin/Globulin [Mass ratio] 0.9 {ratio} Normal [facility] Comment on above: Performed By: #### M Marcell BMP, PHOS #### [facility] [address] [address] [address] David Magana ALP [Catalytic activity/Vol] 49 U/L Normal 46-116 [facility] Comment on above: Performed By: #### M Marcell BMP, PHOS #### [facility] [address] [address] [address] David Magana ALT [Catalytic activity/Vol] 25 U/L Normal 16-63 [facility] Comment on above: Performed By: #### M ERICK Faith, PHOS #### [facility] [address] [address] [address] David Magana Anion gap [Moles/Vol] 12.8 mmol/L Normal [facility] Comment on above: Performed By: #### M ERICK Faith, PHOS #### [facility] [address] [place] [address] Dr. David Magana AST [Catalytic activity/Vol] 9 U/L Critically low 15-37 [facility] Comment on above: Performed By: #### M ERICK Faith, PHOS #### [facility] [address] [place] [address] Dr. David Magana Bilirubin [Mass/Vol] 0.5 mg/dL Normal 0.2-1.0 [facility] Comment on above: Performed By: #### ERICK Jacques, PHOS #### [facility] [address] [place] [address] Dr. David Magana Calcium [Mass/Vol] 8.3 mg/dL Critically low 8.5-10.1 [facility] Comment on above: Performed By: #### ERICK Jacques, PHOS #### [facility] [address] [place] [address] Dr. David Magana Chloride [Moles/Vol] 105 mmol/L Normal 98-107 [facility] Comment on above: Performed By: #### M ERICK Faith, PHOS #### [facility] [address] [place] [address] Dr. David Magana CO2 [Moles/Vol] 24.2 mmol/L Normal 21.0-32.0 [facility] Comment on above: Performed By: #### M ERICK Faith, PHOS #### [facility] [address] [place] [address] Dr. David Magana Creatinine [Mass/Vol] 1.28 mg/dL Normal 0.70-1.30 [facility] Comment on above: Performed By: #### ERICK Jacques, PHOS #### [facility] [address] [address] [address] David Magana EGFR-AF LATVIAN >60 Normal >=60 [facility] Comment on above: Performed By: #### M ERICK Faith, PHOS #### [facility] [address] [address] [address] David Magana EGFR-NON AF LATVIAN 54 mL/min/1.73m2 Critically low >=60 [facility] Comment on above: Performed By: #### M ERICK Faith, PHOS #### [facility] [address] [address] [address] David Magana Globulin (S) [Mass/Vol] 2.9 g/dL Normal [facility] Comment on above: Performed By: #### M ERICK Faith, PHOS #### [facility] [address] [place] [address] Dr. David Magana Glucose [Mass/Vol] 205 mg/dL Critically high 74-106 [facility] Comment on above: Performed By: #### ERICK Jacques, PHOS #### [facility] [address] [address] [address] David Magana Potassium [Moles/Vol] 4.0 mmol/L Normal 3.5-5.1 [facility] Comment on above: Performed By: #### M ERICK Faith, PHOS #### [facility] [address] [address] [address] David Magana Protein [Mass/Vol] 5.5 g/dL Critically low 6.4-8.2 [facility] Comment on above: Performed By: #### ERICK Jacques, PHOS #### [facility] [address] [address] [address] David Magana Sodium [Moles/Vol] 138 mmol/L Normal 136-145 [facility] Comment on above: Performed By: #### M ERICK Faith, PHOS #### [facility] [address] [address] [address] David Magana Urea nitrogen [Mass/Vol] 36.0 mg/dL Critically high 7.0-18.0 [facility] Comment on above: Performed By: #### M G, BMP, PHOS #### [facility] [address] [place] [address] Dr. David Magana Urea nitrogen/Creatinine [Mass ratio] 28.1 mg/mg Normal [facility] Comment on above: Performed By: #### M G, BMP, PHOS #### [facility] [address] [place] [address] Dr. David Magana BNPon 07-21-2022 Natriuretic peptide B (Bld) [Mass/Vol] 3485.0 pg/mL Critically high <=1,800.0 [facility] Comment on above: Result Comment: repe ated Performed By: #### A 1C #### [facility] [address] [place] [address] Dr. David Magana CBC AUTO DIFFon 07-21-2022 BASO # 0.0 103/ul Normal 0.0-0.1 [facility] Comment on above: Performed By: #### C BC #### [facility] [address] [place] [address] Dr. David Magana Basophils/100 WBC (Bld) 0.3 % Normal 0.2-2.0 [facility] Comment on above: Performed By: #### C BC #### [facility] [address] [place] [address] Dr. David Magana EO # 0.2 103/ul Normal 0.0-0.7 [facility] Comment on above: Performed By: #### C BC #### [facility] [address] [place] [address] Dr. David Magana Eosinophils/100 WBC (Bld) 1.9 % Normal 0.9-7.0 [facility] Comment on above: Performed By: #### C BC #### [facility] [address] [place] [address] Dr. David Magana Erythrocyte distribution width (RBC) [Ratio] 13.4 % Normal 11.0-15.0 [facility] Comment on above: Performed By: #### C BC #### [facility] [address] [place] [address] Dr. David Magana Hematocrit (Bld) [Volume fraction] 42.5 % Normal 42.0-54.0 [facility] Comment on above: Performed By: #### C BC #### [facility] [address] [place] [address] Dr. David Magana Hemoglobin (Bld) [Mass/Vol] 14.2 g/dL Normal 14.0-18.0 [facility] Comment on above: Performed By: #### C BC #### [facility] [address] [place] [address] Dr. David Magana IG # 0.22 10e3/ul Critically high 0.00-0.03 [facility] Comment on above: Performed By: #### C BC #### [facility] [address] [place] [address] Dr. David Magana IG % 2.1 % Critically high 0.0-0.5 [facility] Comment on above: Performed By: #### C BC #### [facility] [address] [place] [address] Dr. David Magana LYMPH # 0.8 103/ul Critically low 1.2-3.8 [facility] Comment on above: Performed By: #### C BC #### [facility] [address] [place] [address] Dr. David Magana Lymphocytes/100 WBC (Bld) 7.7 % Critically low 20.5-60.0 [facility] Comment on above: Performed By: #### C BC #### [facility] [address] [place] [address] Dr. David Magana MANUAL DIFF REQ NO Normal [facility] Comment on above: Performed By: #### C BC #### [facility] [address] [place] [address] Dr. David Magana MCH (RBC) [Entitic mass] 33.0 pg Normal 25.9-34.0 [facility] Comment on above: Performed By: #### C BC #### [facility] [address] [place] [address] Dr. David Magana MCHC (RBC) [Mass/Vol] 33.4 g/dL Normal 29.9-35.2 [facility] Comment on above: Performed By: #### C BC #### [facility] [address] [place] [address] Dr. David Magana MCV (RBC) [Entitic vol] 98.8 fL Critically high 80.0-94.0 [facility] Comment on above: Performed By: #### C BC #### [facility] [address] [address] [address] David Magana MONO # 1.0 103/ul Critically high 0.3-0.8 [facility] Comment on above: Performed By: #### C BC #### [facility] [address] [place] [address] Dr. David Magana Monocytes/100 WBC (Bld) 9.7 % Normal 1.7-12.0 [facility] Comment on above: Performed By: #### C BC #### [facility] [address] [place] [address] Dr. David Magana NEUT # 8.1 103/ul Critically high 1.4-6.5 The [facility] Comment on above: Performed By: #### C BC #### [facility] [address] [place] [address] Dr. David Magana Neutrophils/100 WBC (Bld) 78.3 % Critically high 43.0-75.0 [facility] Comment on above: Performed By: #### C BC #### [facility] [address] [place] [address] Dr. David Magana Platelet mean volume (Bld) [Entitic vol] 10.7 fL Normal 9.5-13.5 [facility] Comment on above: Performed By: #### C BC #### [facility] [address] [place] [address] Dr. David Magana PLT 177 103/ul Normal 150-450 [facility] Comment on above: Performed By: #### C BC #### [facility] [address] [place] [address] Dr. David Magana RBC 4.30 106/ul Critically low 4.70-6.10 [facility] Comment on above: Performed By: #### C BC #### [facility] [address] [place] [address] Dr. David Magana WBC 10.4 103/ul Normal 4.0-11.0 [facility] Comment on above: Performed By: #### C BC #### [facility] [address] [place] [address] Dr. David Magana PROF 14(COMP METB)on 022 Albumin [Mass/Vol] 2.6 g/dL Critically low 3.4-5.0 [facility] Comment on above: Performed By: #### A 1C #### [facility] [address] [place] [address] Dr. David Magana Albumin/Globulin [Mass ratio] 1.0 {ratio} Normal [facility] Comment on above: Performed By: #### A 1C #### [facility] [address] [place] [address] Dr. David Magana ALP [Catalytic activity/Vol] 50 U/L Normal 46-116 [facility] Comment on above: Performed By: #### A 1C #### [facility] [address] [place] [address] Dr. David Magana ALT [Catalytic activity/Vol] 28 U/L Normal 16-63 [facility] Comment on above: Performed By: #### A 1C #### [facility] [address] [place] [address] Dr. David Magana Anion gap [Moles/Vol] 11.4 mmol/L Normal [facility] Comment on above: Performed By: #### A 1C #### [facility] [address] [place] [address] Dr. David Magana AST [Catalytic activity/Vol] 13 U/L Critically low 15-37 [facility] Comment on above: Performed By: #### A 1C #### [facility] [address] [place] [address] Dr. David Magana Bilirubin [Mass/Vol] 0.4 mg/dL Normal 0.2-1.0 [facility] Comment on above: Performed By: #### A 1C #### [facility] [address] [place] [address] Dr. David Magana Calcium [Mass/Vol] 8.4 mg/dL Critically low 8.5-10.1 [facility] Comment on above: Performed By: #### A 1C #### [facility] [address] [place] [address] Dr. David Magana Chloride [Moles/Vol] 107 mmol/L Normal 98-107 [facility] Comment on above: Performed By: #### A 1C #### [facility] [address] [place] [address] Dr. David Magana CO2 [Moles/Vol] 24.6 mmol/L Normal 21.0-32.0 [facility] Comment on above: Performed By: #### A 1C #### [facility] [address] [place] [address] Dr. David Magana Creatinine [Mass/Vol] 1.26 mg/dL Normal 0.70-1.30 [facility] Comment on above: Performed By: #### A 1C #### [facility] [address] [place] [address] Dr. Dvaid Magana EGFR-AF LATVIAN >60 Normal >=60 [facility] Comment on above: Performed By: #### A 1C #### [facility] [address] [place] [address] Dr. David Magana EGFR-NON AF LATVIAN 55 mL/min/1.73m2 Critically low >=60 [facility] Comment on above: Performed By: #### A 1C #### [facility] [address] [place] [address] Dr. David Magana Globulin (S) [Mass/Vol] 2.7 g/dL Normal [facility] Comment on above: Performed By: #### A 1C #### [facility] [address] [place] [address] Dr. David Magana Glucose [Mass/Vol] 203 mg/dL Critically high 74-106 [facility] Comment on above: Performed By: #### A 1C #### [facility] [address] [address] [address] David Magana Potassium [Moles/Vol] 4.0 mmol/L Normal 3.5-5.1 [facility] Comment on above: Performed By: #### A 1C #### [facility] [address] [place] [address] Dr. David Magana Protein [Mass/Vol] 5.3 g/dL Critically low 6.4-8.2 [facility] Comment on above: Performed By: #### A 1C #### [facility] [address] [place] [address] Dr. David Magana Sodium [Moles/Vol] 139 mmol/L Normal 136-145 [facility] Comment on above: Performed By: #### A 1C #### [facility] [address] [place] [address] Dr. David Magana Urea nitrogen [Mass/Vol] 33.0 mg/dL Critically high 7.0-18.0 [facility] Comment on above: Performed By: #### A 1C #### [facility] [address] [place] [address] Dr. David Magana Urea nitrogen/Creatinine [Mass ratio] 26.2 mg/mg Normal [facility] Comment on above: Performed By: #### A 1C #### [facility] [address] [place] [address] Dr. David Magana BNPon 07-20-2022 Natriuretic peptide B (Bld) [Mass/Vol] 7478.0 pg/mL Critically high <=1,800.0 [facility] Comment on above: Performed By: #### A 1C #### [facility] [address] [place] [address] Dr. David Magana CBC AUTO DIFFon 07-20-2022 BASO # 0.1 103/ul Normal 0.0-0.1 [facility] Comment on above: Performed By: #### M G, BMP, PHOS #### [facility] [address] [place] [address] Dr. David Magana Basophils/100 WBC (Bld) 0.8 % Normal 0.2-2.0 [facility] Comment on above: Performed By: #### M ERICK Faith, PHOS #### [facility] [address] [place] [address] Dr. David Magana EO # 0.1 103/ul Normal 0.0-0.7 [facility] Comment on above: Performed By: #### ERICK Jacques, PHOS #### [facility] [address] [place] [address] Dr. David Magana Eosinophils/100 WBC (Bld) 0.6 % Critically low 0.9-7.0 [facility] Comment on above: Performed By: #### ERICK Jacques, PHOS #### [facility] [address] [place] [address] Dr. David Magana Erythrocyte distribution width (RBC) [Ratio] 13.4 % Normal 11.0-15.0 [facility] Comment on above: Performed By: #### ERICK Jacques, PHOS #### [facility] [address] [place] [address] Dr. David Magana Hematocrit (Bld) [Volume fraction] 43.2 % Normal 42.0-54.0 [facility] Comment on above: Performed By: #### ERICK Jacques, PHOS #### [facility] [address] [place] [address] Dr. David Magana Hemoglobin (Bld) [Mass/Vol] 14.2 g/dL Normal 14.0-18.0 [facility] Comment on above: Performed By: #### ERICK Jacques, PHOS #### [facility] [address] [place] [address] Dr. David Magana IG # 0.21 10e3/ul Critically high 0.00-0.03 [facility] Comment on above: Performed By: #### ERICK Jacques, PHOS #### [facility] [address] [place] [address] Dr. David Magana IG % 2.0 % Critically high 0.0-0.5 [facility] Comment on above: Performed By: #### M G, BMP, PHOS #### [facility] [address] [place] [address] Dr. David Magana LYMPH # 0.8 103/ul Critically low 1.2-3.8 [facility] Comment on above: Performed By: #### M G, BMP, PHOS #### [facility] [address] [place] [address] Dr. David Magana Lymphocytes/100 WBC (Bld) 7.7 % Critically low 20.5-60.0 [facility] Comment on above: Performed By: #### M G, BMP, PHOS #### [facility] [address] [place] [address] Dr. David Magana MANUAL DIFF REQ NO Normal [facility] Comment on above: Performed By: #### M G, BMP, PHOS #### [facility] [address] [place] [address] Dr. David Magana MCH (RBC) [Entitic mass] 33.2 pg Normal 25.9-34.0 [facility] Comment on above: Performed By: #### M G, BMP, PHOS #### [facility] [address] [place] [address] Dr. David Magana MCHC (RBC) [Mass/Vol] 32.9 g/dL Normal 29.9-35.2 [facility] Comment on above: Performed By: #### M G, BMP, PHOS #### [facility] [address] [place] [address] Dr. David Magana MCV (RBC) [Entitic vol] 100.9 fL Critically high 80.0-94.0 [facility] Comment on above: Performed By: #### M G, BMP, PHOS #### [facility] [address] [place] [address] Dr. David Magana MONO # 1.0 103/ul Critically high 0.3-0.8 [facility] Comment on above: Performed By: #### M G, BMP, PHOS #### [facility] [address] [place] [address] Dr. David Magana Monocytes/100 WBC (Bld) 10.0 % Normal 1.7-12.0 [facility] Comment on above: Performed By: #### ERICK Jacques, PHOS #### [facility] [address] [place] [address] Dr. David Magana NEUT # 8.1 103/ul Critically high 1.4-6.5 [facility] Comment on above: Performed By: #### ERICK Jacques, PHOS #### [facility] [address] [place] [address] Dr. David Magana Neutrophils/100 WBC (Bld) 78.9 % Critically high 43.0-75.0 [facility] Comment on above: Performed By: #### ERICK Jacques, PHOS #### [facility] [address] [place] [address] Dr. David Magana Platelet mean volume (Bld) [Entitic vol] 10.8 fL Normal 9.5-13.5 [facility] Comment on above: Performed By: #### ERICK Jacques, PHOS #### [facility] [address] [place] [address] Dr. David Magana PLT 172 103/ul Normal 150-450 [facility] Comment on above: Performed By: #### ERICK Jacques, PHOS #### [facility] [address] [place] [address] Dr. David Magana RBC 4.28 106/ul Critically low 4.70-6.10 [facility] Comment on above: Performed By: #### ERICK Jacques, PHOS #### [facility] [address] [place] [address] Dr. David Magana WBC 10.3 103/ul Normal 4.0-11.0 [facility] Comment on above: Performed By: #### ERICK Jacques, PHOS #### [facility] [address] [place] [address] Dr. David Magana CULTURE URINEon 07-20-2022 CULTURE [...] F Trimethoprim/Sulfame thoxazole >=320 R F Normal [facility] Comment on above: Performed By: #### M G, BMP, PHOS #### [facility] [address] [place] [address] Dr. David Magana PROF 14(COMP METB)on 022 Albumin [Mass/Vol] 2.6 g/dL Critically low 3.4-5.0 [facility] Comment on above: Performed By: #### A 1C #### [facility] [address] [place] [address] Dr. David Magana Albumin/Globulin [Mass ratio] 0.9 {ratio} Normal [facility] Comment on above: Performed By: #### A 1C #### [facility] [address] [place] [address] Dr. David Magana ALP [Catalytic activity/Vol] 48 U/L Normal 46-116 [facility] Comment on above: Performed By: #### A 1C #### [facility] [address] [place] [address] Dr. David Magana ALT [Catalytic activity/Vol] 27 U/L Normal 16-63 [facility] Comment on above: Performed By: #### A 1C #### [facility] [address] [place] [address] Dr. David Magana Anion gap [Moles/Vol] 13.4 mmol/L Normal [facility] Comment on above: Performed By: #### A 1C #### [facility] [address] [place] [address] Dr. David Magana AST [Catalytic activity/Vol] 22 U/L Normal 15-37 [facility] Comment on above: Performed By: #### A 1C #### [facility] [address] [address] [address] David Magana Bilirubin [Mass/Vol] 0.5 mg/dL Normal 0.2-1.0 [facility] Comment on above: Performed By: #### A 1C #### [facility] [address] [address] [address] David Magana Calcium [Mass/Vol] 8.3 mg/dL Critically low 8.5-10.1 [facility] Comment on above: Performed By: #### A 1C #### [facility] [address] [address] [address] David Magana Chloride [Moles/Vol] 105 mmol/L Normal 98-107 [facility] Comment on above: Performed By: #### A 1C #### [facility] [address] [address] [address] David Magana CO2 [Moles/Vol] 21.0 mmol/L Normal 21.0-32.0 [facility] Comment on above: Performed By: #### A 1C #### [facility] [address] [address] [address] David Magana Creatinine [Mass/Vol] 1.38 mg/dL Critically high 0.70-1.30 [facility] Comment on above: Performed By: #### A 1C #### [facility] [address] [address] [address] David Magana EGFR-AF LATVIAN 60 mL/min/1.73m2 Normal >=60 [facility] Comment on above: Performed By: #### A 1C #### [facility] [address] [address] [address] David Magana EGFR-NON AF LATVIAN 49 mL/min/1.73m2 Critically low >=60 [facility] Comment on above: Performed By: #### A 1C #### [facility] [address] [address] [address] David Magana Globulin (S) [Mass/Vol] 2.8 g/dL Normal [facility] Comment on above: Performed By: #### A 1C #### [facility] [address] [address] [address] David Magana Glucose [Mass/Vol] 156 mg/dL Critically high 74-106 [facility] Comment on above: Performed By: #### A 1C #### [facility] [address] [address] [address] David Magana Potassium [Moles/Vol] 4.4 mmol/L Normal 3.5-5.1 [facility] Comment on above: Performed By: #### A 1C #### [facility] [address] [place] [address] Dr. David Magana Protein [Mass/Vol] 5.4 g/dL Critically low 6.4-8.2 [facility] Comment on above: Performed By: #### A 1C #### [facility] [address] [place] [address] Dr. David Magana Sodium [Moles/Vol] 135 mmol/L Critically low 136-145 [facility] Comment on above: Performed By: #### A 1C #### [facility] [address] [place] [address] Dr. David Magana Urea nitrogen [Mass/Vol] 40.0 mg/dL Critically high 7.0-18.0 [facility] Comment on above: Performed By: #### A 1C #### [facility] [address] [place] [address] Dr. David Magana Urea nitrogen/Creatinine [Mass ratio] 29.0 mg/mg Normal [facility] Comment on above: Performed By: #### A 1C #### [facility] [address] [place] [address] Dr. David Magana BNPon 07-19-2022 Natriuretic peptide B (Bld) [Mass/Vol] 27461.0 pg/mL Critically high <=1,800.0 [facility] Comment on above: Performed By: #### C VDTB #### [facility] [address] [place] [address] Dr. David Magana CBC AUTO DIFFon 07-19-2022 BASO # 0.0 103/ul Normal 0.0-0.1 [facility] Comment on above: Performed By: #### C BC #### [facility] [address] [place] [address] Dr. David Magana Basophils/100 WBC (Bld) 0.3 % Normal 0.2-2.0 [facility] Comment on above: Performed By: #### C BC #### [facility] [address] [place] [address] Dr. David Magana EO # 0.0 103/ul Normal 0.0-0.7 [facility] Comment on above: Performed By: #### C BC #### [facility] [address] [place] [address] Dr. David Magana Eosinophils/100 WBC (Bld) 0.2 % Critically low 0.9-7.0 [facility] Comment on above: Performed By: #### C BC #### [facility] [address] [place] [address] Dr. David Magana Erythrocyte distribution width (RBC) [Ratio] 13.4 % Normal 11.0-15.0 [facility] Comment on above: Performed By: #### C BC #### [facility] [address] [place] [address] Dr. David Magana Hematocrit (Bld) [Volume fraction] 43.4 % Normal 42.0-54.0 [facility] Comment on above: Performed By: #### C BC #### [facility] [address] [place] [address] Dr. David Magana Hemoglobin (Bld) [Mass/Vol] 14.6 g/dL Normal 14.0-18.0 [facility] Comment on above: Performed By: #### C BC #### [facility] [address] [place] [address] Dr. David Magana IG # 0.18 10e3/ul Critically high 0.00-0.03 [facility] Comment on above: Performed By: #### C BC #### [facility] [address] [place] [address] Dr. David Magana IG % 1.5 % Critically high 0.0-0.5 [facility] Comment on above: Performed By: #### C BC #### [facility] [address] [place] [address] Dr. David Magana LYMPH # 0.8 103/ul Critically low 1.2-3.8 [facility] Comment on above: Performed By: #### C BC #### [facility] [address] [place] [address] Dr. David Magana Lymphocytes/100 WBC (Bld) 6.6 % Critically low 20.5-60.0 [facility] Comment on above: Performed By: #### C BC #### [facility] [address] [place] [address] Dr. David Magana MANUAL DIFF REQ NO Normal [facility] Comment on above: Performed By: #### C BC #### [facility] [address] [place] [address] Dr. David Magana MCH (RBC) [Entitic mass] 33.7 pg Normal 25.9-34.0 [facility] Comment on above: Performed By: #### C BC #### [facility] [address] [place] [address] Dr. David Magana MCHC (RBC) [Mass/Vol] 33.6 g/dL Normal 29.9-35.2 [facility] Comment on above: Performed By: #### C BC #### [facility] [address] [place] [address] Dr. David Magana MCV (RBC) [Entitic vol] 100.2 fL Critically high 80.0-94.0 [facility] Comment on above: Performed By: #### C BC #### [facility] [address] [place] [address] Dr. David Magana MONO # 1.1 103/ul Critically high 0.3-0.8 [facility] Comment on above: Performed By: #### C BC #### [facility] [address] [place] [address] Dr. David Magana Monocytes/100 WBC (Bld) 9.3 % Normal 1.7-12.0 [facility] Comment on above: Performed By: #### C BC #### [facility] [address] [place] [address] Dr. David Magana NEUT # 9.6 103/ul Critically high 1.4-6.5 [facility] Comment on above: Performed By: #### C BC #### [facility] [address] [place] [address] Dr. David Magana Neutrophils/100 WBC (Bld) 82.1 % Critically high 43.0-75.0 [facility] Comment on above: Performed By: #### C BC #### [facility] [address] [place] [address] Dr. David Magana Platelet mean volume (Bld) [Entitic vol] 10.8 fL Normal 9.5-13.5 [facility] Comment on above: Performed By: #### C BC #### [facility] [address] [place] [address] Dr. David Magana PLT 202 103/ul Normal 150-450 [facility] Comment on above: Performed By: #### C BC #### [facility] [address] [place] [address] Dr. David Magana RBC 4.33 106/ul Critically low 4.70-6.10 [facility] Comment on above: Performed By: #### C BC #### [facility] [address] [place] [address] Dr. David Magana WBC 11.7 103/ul Critically high 4.0-11.0 [facility] Comment on above: Performed By: #### C BC #### [facility] [address] [place] [address] Dr. David Magana PROF 14(COMP METB)on 022 Albumin [Mass/Vol] 3.4 g/dL Normal 3.4-5.0 [facility] Comment on above: Performed By: #### A 1C #### [facility] [address] [place] [address] Dr. David Magana Albumin/Globulin [Mass ratio] 1.1 {ratio} Normal [facility] Comment on above: Performed By: #### A 1C #### [facility] [address] [place] [address] Dr. David Magana ALP [Catalytic activity/Vol] 63 U/L Normal 46-116 [facility] Comment on above: Performed By: #### A 1C #### [facility] [address] [address] [address] David Magana ALT [Catalytic activity/Vol] 34 U/L Normal 16-63 [facility] Comment on above: Performed By: #### A 1C #### [facility] [address] [address] [address] David Magana Anion gap [Moles/Vol] 20.9 mmol/L Normal [facility] Comment on above: Performed By: #### A 1C #### [facility] [address] [place] [address] Dr. David Magana AST [Catalytic activity/Vol] 18 U/L Normal 15-37 [facility] Comment on above: Performed By: #### A 1C #### [facility] [address] [address] [address] David Magana Bilirubin [Mass/Vol] 0.5 mg/dL Normal 0.2-1.0 [facility] Comment on above: Performed By: #### A 1C #### [facility] [address] [address] [address] David Magana Calcium [Mass/Vol] 8.5 mg/dL Normal 8.5-10.1 [facility] Comment on above: Performed By: #### A 1C #### [facility] [address] [address] [address] David Magana Chloride [Moles/Vol] 99 mmol/L Normal 98-107 [facility] Comment on above: Performed By: #### A 1C #### [facility] [address] [address] [address] David Magana CO2 [Moles/Vol] 19.1 mmol/L Critically low 21.0-32.0 [facility] Comment on above: Performed By: #### A 1C #### [facility] [address] [address] [address] David Magana Creatinine [Mass/Vol] 1.80 mg/dL Critically high 0.70-1.30 [facility] Comment on above: Performed By: #### A 1C #### [facility] [address] [address] [address] David Magana EGFR-AF LATVIAN 44 mL/min/1.73m2 Critically low >=60 [facility] Comment on above: Performed By: #### A 1C #### [facility] [address] [address] [address] David Magana EGFR-NON AF LATVIAN 36 mL/min/1.73m2 Critically low >=60 [facility] Comment on above: Performed By: #### A 1C #### [facility] [address] [address] [address] David Magana Globulin (S) [Mass/Vol] 3.2 g/dL Normal [facility] Comment on above: Performed By: #### A 1C #### [facility] [address] [address] [address] David Magana Glucose [Mass/Vol] 287 mg/dL Critically high 74-106 T [facility] Comment on above: Performed By: #### A 1C #### [facility] [address] [address] [address] David Magana Potassium [Moles/Vol] 5.0 mmol/L Normal 3.5-5.1 [facility] Comment on above: Performed By: #### A 1C #### [facility] [address] [address] [address] David Magana Protein [Mass/Vol] 6.6 g/dL Normal 6.4-8.2 [facility] Comment on above: Performed By: #### A 1C #### [facility] [address] [address] [address] David Magana Sodium [Moles/Vol] 134 mmol/L Critically low 136-145 Th [facility] Comment on above: Performed By: #### A 1C #### [facility] [address] [address] [address] David Magana Urea nitrogen [Mass/Vol] 51.0 mg/dL Critically high 7.0-18.0 [facility] Comment on above: Performed By: #### A 1C #### [facility] [address] [address] [address] David Magana Urea nitrogen/Creatinine [Mass ratio] 28.3 mg/mg Normal [facility] Comment on above: Performed By: #### A 1C #### [facility] [address] [address] [address] David Magana BLOOD GASES BTYon 07-18-2022 02 MODE NASAL CANNULA Normal [facility] Comment on above: Performed By: #### A 1C #### [facility] [address] [place] [address] Dr. David Magana ALLENS TEST Positive [facility] Comment on above: Performed By: #### A 1C #### [facility] [address] [address] [address] David Magana Base excess Calc (Bld) [Moles/Vol] -9.0000 mmol/L Critically low -2.0-2.0 [facility] Comment on above: Performed By: #### A 1C #### [facility] [address] [place] [address] Dr. David Magana BIPAP PRESSURE Normal [facility] Comment on above: Performed By: #### A 1C #### [facility] [address] [address] [address] David Magana CPAP Normal [facility] Comment on above: Performed By: #### A 1C #### [facility] [address] [address] [address] David Magana FIO2 Normal [facility] Comment on above: Performed By: #### A 1C #### [facility] [address] [place] [address] Dr. David Magana HCO3 (Bld) [Moles/Vol] 18.4 mmol/L Critically low 22.0-26.0 [facility] Comment on above: Performed By: #### A 1C #### [facility] [address] [address] [address] David Magana LPM 1.5 Normal [facility] Comment on above: Performed By: #### A 1C #### [facility] [address] [address] [address] David Magana MINUTE VOLUME Normal [facility] Comment on above: Performed By: #### A 1C #### [facility] [address] [place] [address] Dr. David Magana Oxygen (Bld) [Partial pressure] 69.5 mm[Hg] Critically low 80.0-100.0 [facility] Comment on above: Performed By: #### A 1C #### [facility] [address] [place] [address] Dr. David Magana Oxygen saturation in Blood 94.2 % Critically low 95.0-100.0 [facility] Comment on above: Performed By: #### A 1C #### [facility] [address] [place] [address] Dr. David Magana PCO2 29.6 mmHg Critically low 35.0-45.0 [facility] Comment on above: Performed By: #### A 1C #### [facility] [address] [place] [address] Dr. David Magana PEEP Normal [facility] Comment on above: Performed By: #### A 1C #### [facility] [address] [place] [address] Dr. David Magana pH (Bld) 7.355 [pH] Normal 7.350-7.450 [facility] Comment on above: Performed By: #### A 1C #### [facility] [address] [place] [address] Dr. David Magana PIP [facility] Comment on above: Performed By: #### A 1C #### [facility] [address] [place] [address] Dr. David Magana PS [facility] Comment on above: Performed By: #### A 1C #### [facility] [address] [place] [address] Dr. David Magana PUNCTURE SITE LR [facility] Comment on above: Performed By: #### A 1C #### [facility] [address] [place] [address] Dr. David Magana RATE [facility] Comment on above: Performed By: #### A 1C #### [facility] [address] [place] [address] Dr. David Magana VENT MODE [facility] Comment on above: Performed By: #### A 1C #### [facility] [address] [place] [address] Dr. David Magana [facility] Comment on above: Performed By: #### A 1C #### [facility] [address] [place] [address] Dr. David Magana BNPon 07-18-2022 Natriuretic peptide B (Bld) [Mass/Vol] 7047.0 pg/mL Critically high <=1,800.0 [facility] Comment on above: Performed By: #### C VDTBH #### [facility] [address] [place] [address] Dr. David Magana CARDIAC BARRIE 3-6on 2 CK [Catalytic activity/Vol] 396 U/L Critically high 39-308 [facility] Comment on above: Performed By: #### M G, BMP, PHOS #### [facility] [address] [place] [address] Dr. David Magana CK.MB [Mass/Vol] 2.94 ng/mL Normal <=3.60 [facility] Comment on above: Performed By: #### M G, BMP, PHOS #### [facility] [address] [place] [address] Dr. David Magana HSTROP 11.1 pg/mL Normal 4.0-76.1 [facility] Comment on above: Result Comment: CUT- OFF POINTS HAVE BEEN ESTABLISHED BASED ON THE FOURTH UNIVERSAL DEFINITIONS OF MYOCARDIAL INFARCTION. THE UPPER REFERENCE LIMIT (URL) OF TROPONIN, DEFINED THE 99TH PERCENTILE OF cTnI DISTRIBUTION IN A REFERENCE POPULATION, HAS BEEN CONFIRMED THE DECISION THRESHOLD FOR ME DIAGNOSIS. Performed By: #### M G, BMP, PHOS #### [facility] [address] [place] [address] Dr. David Magana CK [Catalytic activity/Vol] 58 U/L Normal 39-308 [facility] Comment on above: Performed By: #### M G, BMP, PHOS #### [facility] [address] [place] [address] Dr. David Magana CK.MB [Mass/Vol] 1.71 ng/mL Normal <=3.60 [facility] Comment on above: Performed By: #### M G, BMP, PHOS #### [facility] [address] [place] [address] Dr. David Magana HSTROP 10.6 pg/mL Normal 4.0-76.1 [facility] Comment on above: Result Comment: CUT- OFF POINTS HAVE BEEN ESTABLISHED BASED ON THE FOURTH UNIVERSAL DEFINITIONS OF MYOCARDIAL INFARCTION. THE UPPER REFERENCE LIMIT (URL) OF TROPONIN, DEFINED THE 99TH PERCENTILE OF cTnI DISTRIBUTION IN A REFERENCE POPULATION, HAS BEEN CONFIRMED THE DECISION THRESHOLD FOR ME DIAGNOSIS. Performed By: #### M Marcell BMP, PHOS #### [facility] [address] [place] [address] Dr. David Magana CBC AUTO DIFFon 07-18-2022 BASO # 0.0 103/ul Normal 0.0-0.1 [facility] Comment on above: Performed By: #### M Marcell BMP, PHOS #### [facility] [address] [place] [address] Dr. David Magana Basophils/100 WBC (Bld) 0.2 % Normal 0.2-2.0 [facility] Comment on above: Performed By: #### M Marcell BMP, PHOS #### [facility] [address] [place] [address] Dr. David Magana EO # 0.0 103/ul Normal 0.0-0.7 [facility] Comment on above: Performed By: #### M Marcell BMP, PHOS #### [facility] [address] [place] [address] Dr. David Magana Eosinophils/100 WBC (Bld) 0.2 % Critically low 0.9-7.0 [facility] Comment on above: Performed By: #### M ERICK Faith, PHOS #### [facility] [address] [place] [address] Dr. David Magana Erythrocyte distribution width (RBC) [Ratio] 13.2 % Normal 11.0-15.0 [facility] Comment on above: Performed By: #### M ERICK Faith, PHOS #### [facility] [address] [place] [address] Dr. David Magana Hematocrit (Bld) [Volume fraction] 43.8 % Normal 42.0-54.0 [facility] Comment on above: Performed By: #### ERICK Jacques, PHOS #### [facility] [address] [place] [address] Dr. David Magana Hemoglobin (Bld) [Mass/Vol] 14.5 g/dL Normal 14.0-18.0 [facility] Comment on above: Performed By: #### ERICK Jacques, PHOS #### [facility] [address] [place] [address] Dr. David Magana IG # 0.15 10e3/ul Critically high 0.00-0.03 [facility] Comment on above: Performed By: #### ERICK Jacques, PHOS #### [facility] [address] [place] [address] Dr. David Magana IG % 1.3 % Critically high 0.0-0.5 [facility] Comment on above: Performed By: #### M ERICK Faith, PHOS #### [facility] [address] [place] [address] Dr. David Magana LYMPH # 0.5 103/ul Critically low 1.2-3.8 [facility] Comment on above: Performed By: #### M Marcell BMP, PHOS #### [facility] [address] [place] [address] Dr. David Magana Lymphocytes/100 WBC (Bld) 3.8 % Critically low 20.5-60.0 [facility] Comment on above: Performed By: #### M Marcell BMP, PHOS #### [facility] [address] [place] [address] Dr. David Magana MANUAL DIFF REQ NO Normal [facility] Comment on above: Performed By: #### M Marcell, BMP, PHOS #### [facility] [address] [place] [address] Dr. David Magana MCH (RBC) [Entitic mass] 32.7 pg Normal 25.9-34.0 [facility] Comment on above: Performed By: #### M ERICK Faith, PHOS #### [facility] [address] [place] [address] Dr. David Magana MCHC (RBC) [Mass/Vol] 33.1 g/dL Normal 29.9-35.2 [facility] Comment on above: Performed By: #### M ERICK Faith, PHOS #### [facility] [address] [place] [address] Dr. David Magana MCV (RBC) [Entitic vol] 98.9 fL Critically high 80.0-94.0 [facility] Comment on above: Performed By: #### ERICK Jacques, PHOS #### [facility] [address] [place] [address] Dr. David Magana MONO # 0.7 103/ul Normal 0.3-0.8 [facility] Comment on above: Performed By: #### ERICK Jacuqes, PHOS #### [facility] [address] [place] [address] Dr. David Magana Monocytes/100 WBC (Bld) 5.7 % Normal 1.7-12.0 [facility] Comment on above: Performed By: #### M ERICK Faith, PHOS #### [facility] [address] [place] [address] Dr. David Magana NEUT # 10.4 103/ul Critically high 1.4-6.5 [facility] Comment on above: Performed By: #### M ERICK Faith, PHOS #### [facility] [address] [address] [address] David Magana Neutrophils/100 WBC (Bld) 88.8 % Critically high 43.0-75.0 [facility] Comment on above: Performed By: #### M ERICK Faith, PHOS #### [facility] [address] [address] [address] David Magana Platelet mean volume (Bld) [Entitic vol] 11.0 fL Normal 9.5-13.5 [facility] Comment on above: Performed By: #### M ERICK Faith, PHOS #### [facility] [address] [address] [address] David Magana PLT 198 103/ul Normal 150-450 [facility] Comment on above: Performed By: #### M ERICK Faith, PHOS #### [facility] [address] [address] [address] David Magana RBC 4.43 106/ul Critically low 4.70-6.10 [facility] Comment on above: Performed By: #### ERICK Jacques, PHOS #### [facility] [address] [address] [address] David Magana WBC 11.8 103/ul Critically high 4.0-11.0 [facility] Comment on above: Performed By: #### ERICK Jacques, PHOS #### [facility] [address] [place] [address] HEAD WO CONon [...] 3. Vascular calcification. Electronically authenticated by: FRANCISCO GARCIA Date: 2022-07-18 05:12 Normal [facility] Covid-19 PCR (CVDTBH)on SARS-CoV-2 (COVID-19) RNA SULTANA+probe Ql (Unsp spec) Detected Critically abnormal NOT DETECTED [facility] Comment on above: Result Comment: This test is not yet approved or cleared by the [place] FDA. When there are no FDA-approved or cleared tests available, and other criteria are met, FDA can make tests available under an emergency access mechanism called an Emergency Use Authorization (EUA). The EUA for this test is supported by the [place] Manager of Health and Human Service's declaration that [...] used). Performed By: #### C VDTBH #### [facility] [address] [place] [address] Dr. David Magana D-DIMERon 07-18-2022 D-DIMER 1.69 mg/L FEU Critically high <=0.59 [facility] Comment on above: Performed By: #### C BC #### [facility] [address] [address] [address] David Magana D-DIMER COMMENTS SEE BELOW Normal [facility] Comment on above: Result Comment: Incr eases [...] hospitalization. Performed By: #### C BC #### [facility] [address] [address] [address] David Magana POINT OF CARE GLUCOSEon Glucose [Mass/Vol] 329 mg/dL Critically high 74-106 [facility] Comment on above: Performed By: #### P OCGLUC #### [facility] [address] [place] [address] Dr. David Magana Glucose [Mass/Vol] 354 mg/dL Critically high 74-106 [facility] Comment on above: Performed By: #### P OCGLUC #### [facility] [address] [place] [address] Dr. David Magana PROF 14(COMP METB)on 022 Albumin [Mass/Vol] 3.6 g/dL Normal 3.4-5.0 [facility] Comment on above: Performed By: #### C VDTBH #### [facility] [address] [place] [address] Dr. David Magana Albumin/Globulin [Mass ratio] 1.1 {ratio} Normal [facility] Comment on above: Performed By: #### C VDTBH #### [facility] [address] [place] [address] Dr. David Magana ALP [Catalytic activity/Vol] 67 U/L Normal 46-116 [facility] Comment on above: Performed By: #### C VDTBH #### [facility] [address] [place] [address] Dr. David Magana ALT [Catalytic activity/Vol] 33 U/L Normal 16-63 [facility] Comment on above: Performed By: #### C VDTBH #### [facility] [address] [place] [address] Dr. David Magana Anion gap [Moles/Vol] 23.5 mmol/L Normal [facility] Comment on above: Performed By: #### C VDTBH #### [facility] [address] [place] [address] Dr. David Magana AST [Catalytic activity/Vol] 13 U/L Critically low 15-37 [facility] Comment on above: Performed By: #### C VDTBH #### [facility] [address] [address] [address] David Magana Bilirubin [Mass/Vol] 0.6 mg/dL Normal 0.2-1.0 [facility] Comment on above: Performed By: #### C VDTBH #### [facility] [address] [place] [address] Dr. David Magana Calcium [Mass/Vol] 8.4 mg/dL Critically low 8.5-10.1 [facility] Comment on above: Performed By: #### C VDTBH #### [facility] [address] [address] [address] David Magana Chloride [Moles/Vol] 93 mmol/L Critically low 98-107 [facility] Comment on above: Performed By: #### C VDTBH #### [facility] [address] [place] [address] Dr. David Magana CO2 [Moles/Vol] 17.9 mmol/L Critically low 21.0-32.0 [facility] Comment on above: Performed By: #### C VDTBH #### [facility] [address] [place] [address] Dr. David Magana Creatinine [Mass/Vol] 2.15 mg/dL Critically high 0.70-1.30 [facility] Comment on above: Performed By: #### C VDTBH #### [facility] [address] [place] [address] Dr. David Magana EGFR-AF LATVIAN 36 mL/min/1.73m2 Critically low >=60 [facility] Comment on above: Performed By: #### C VDTBH #### [facility] [address] [place] [address] Dr. David Magana EGFR-NON AF LATVIAN 30 mL/min/1.73m2 Critically low >=60 [facility] Comment on above: Performed By: #### C VDTBH #### [facility] [address] [place] [address] Dr. David Magana Globulin (S) [Mass/Vol] 3.2 g/dL Normal [facility] Comment on above: Performed By: #### C VDTBH #### [facility] [address] [address] [address] David Magana Glucose [Mass/Vol] 345 mg/dL Critically high 74-106 [facility] Comment on above: Performed By: #### C VDTBH #### [facility] [address] [address] [address] David Magana Potassium [Moles/Vol] 5.4 mmol/L Critically high 3.5-5.1 [facility] Comment on above: Performed By: #### C VDTBH #### [facility] [address] [address] [address] David Magana Performed By: #### K #### [facility] [address] [place] [address] Dr. David Magana Protein [Mass/Vol] 6.8 g/dL Normal 6.4-8.2 [facility] Comment on above: Performed By: #### C VDTBH #### [facility] [address] [place] [address] Dr. David Magana Sodium [Moles/Vol] 129 mmol/L Critically low 136-145 [facility] Comment on above: Performed By: #### C VDTBH #### [facility] [address] [place] [address] Dr. David Magana Urea nitrogen [Mass/Vol] 65.0 mg/dL Critically high 7.0-18.0 [facility] Comment on above: Performed By: #### C VDTBH #### [facility] [address] [place] [address] Dr. David Magana Urea nitrogen/Creatinine [Mass ratio] 30.2 mg/mg Normal [facility] Comment on above: Performed By: #### C VDTBH #### [facility] [address] [place] [address] Dr. David Magana UA RANDOM W/MICROSCOPICon BACTERIA NONE SEEN Normal NONE SEEN [facility] Comment on above: Performed By: #### M G, BMP, PHOS #### [facility] [address] [address] [address] David Magana Bilirubin Ql (U) Negative Normal NEGATIVE [facility] Comment on above: Performed By: #### M G, BMP, PHOS #### [facility] [address] [place] [address] Dr. David Magana CAST NONE SEEN Normal NONE SEEN [facility] Comment on above: Performed By: #### M G, BMP, PHOS #### [facility] [address] [address] [address] David Magana Clarity (U) CLEAR Normal CLEAR [facility] Comment on above: Performed By: #### M G, BMP, PHOS #### [facility] [address] [place] [address] Dr. David Magana Color (U) LT. YELLOW Normal YELLOW [facility] Comment on above: Performed By: #### M G, BMP, PHOS #### [facility] [address] [place] [address] Dr. David Magana Crystals LM Nom (Urine sed) NONE SEEN Normal NONE SEEN [facility] Comment on above: Performed By: #### M G, BMP, PHOS #### [facility] [address] [place] [address] Dr. David Magana Epithelial cells LM Ql (Urine sed) RARE Normal NONE SEEN /RARE [facility] Comment on above: Performed By: #### M G, BMP, PHOS #### [facility] [address] [place] [address] Dr. David Magana Glucose Ql (U) 1000 mg/dl Abnormal NEGATIVE [facility] Comment on above: Performed By: #### M G, BMP, PHOS #### [facility] [address] [place] [address] Dr. David Magana Hemoglobin Ql (U) Negative Normal NEGATIVE [facility] Comment on above: Performed By: #### M G, BMP, PHOS #### [facility] [address] [place] [address] Dr. David Magana Ketones Ql (U) 15 mg/dl Abnormal NEGATIVE [facility] Comment on above: Performed By: #### M G, BMP, PHOS #### [facility] [address] [address] [address] David Magana LEUKOCYTES Negative Normal NEGATIVE [facility] Comment on above: Performed By: #### M G, BMP, PHOS #### [facility] [address] [place] [address] Dr. David Magana MUCOUS NONE SEEN Normal NONE SEEN [facility] Comment on above: Performed By: #### M G, BMP, PHOS #### [facility] [address] [address] [address] David Magana Nitrite Ql (U) Negative Normal NEGATIVE [facility] Comment on above: Performed By: #### M Marcell, BMP, PHOS #### [facility] [address] [place] [address] Dr. David Magana pH (U) 5.5 [pH] Normal 5-9 [facility] Comment on above: Performed By: #### M Marcell, BMP, PHOS #### [facility] [address] [place] [address] Dr. David Magana RBC NONE SEEN Abnormal 0-2 [facility] Comment on above: Performed By: #### M Marcell, BMP, PHOS #### [facility] [address] [place] [address] Dr. David Magana SPEC GRAVITY <=1.005 Abnormal 1.005-<=1.025 [facility] Comment on above: Performed By: #### M Marcell, BMP, PHOS #### [facility] [address] [place] [address] Dr. David Magana UA PROTEIN Negative Normal NEGATIVE/ TRACE [facility] Comment on above: Performed By: #### M G, BMP, PHOS #### [facility] [address] [place] [address] Dr. David Magana Urobilinogen Qn (U) 0.2 {Dionna'U}/dL Normal 0.2 - 1. 0 [facility] Comment on above: Performed By: #### Jim Faith, BMP, PHOS #### [facility] [address] [place] [address] Dr. David Magana WBC NONE SEEN Normal NONE SEEN The [facility] Comment on above: Performed By: #### M ERICK Faith PHOS #### [facility] [address] [place] [address] Dr. David Magana XR CHEST 1 Von [...] Yefri DWYER Date: 2022-07-18 00:09 Normal The [facility] CARDIAC BARRIE ADMITon 022 CK [Catalytic activity/Vol] 61 U/L Normal 39-308 [facility] Comment on above: Performed By: #### C BC #### [facility] [address] [place] [address] Dr. David Magana CK.MB [Mass/Vol] 1.84 ng/mL Normal <=3.60 The [facility] Comment on above: Performed By: #### C BC #### [facility] [address] [place] [address] Dr. David Magana HSTROP 9.4 pg/mL Normal 4.0-76.1 [facility] Comment on above: Result Comment: CUT- OFF POINTS HAVE BEEN ESTABLISHED BASED ON THE FOURTH UNIVERSAL DEFINITIONS OF MYOCARDIAL INFARCTION. THE UPPER REFERENCE LIMIT (URL) OF TROPONIN, DEFINED THE 99TH PERCENTILE OF cTnI DISTRIBUTION IN A REFERENCE POPULATION, HAS BEEN CONFIRMED THE DECISION THRESHOLD FOR ME DIAGNOSIS. Performed By: #### C BC #### [facility] [address] [place] [address] Dr. David Magana DUSTIN 533 ng/mL Critically high 16-96 [facility] Comment on above: Performed By: #### C BC #### [facility] [address] [place] [address] Dr. David Magana CBC AUTO DIFFon 07-17-2022 BASO # 0.0 103/ul Normal 0.0-0.1 [facility] Comment on above: Performed By: #### M G, BMP, PHOS #### [facility] [address] [address] [address] David Magana Basophils/100 WBC (Bld) 0.2 % Normal 0.2-2.0 [facility] Comment on above: Performed By: #### M G, BMP, PHOS #### [facility] [address] [address] [address] David Magana EO # 0.0 103/ul Normal 0.0-0.7 [facility] Comment on above: Performed By: #### M G, BMP, PHOS #### [facility] [address] [place] [address] Dr. David Magana Eosinophils/100 WBC (Bld) 0.1 % Critically low 0.9-7.0 [facility] Comment on above: Performed By: #### M G, BMP, PHOS #### [facility] [address] [place] [address] Dr. David Magana Erythrocyte distribution width (RBC) [Ratio] 13.2 % Normal 11.0-15.0 [facility] Comment on above: Performed By: #### M G, BMP, PHOS #### [facility] [address] [address] [address] David Magana Hematocrit (Bld) [Volume fraction] 43.1 % Normal 42.0-54.0 [facility] Comment on above: Performed By: #### M G, BMP, PHOS #### [facility] [address] [place] [address] Dr. David Magana Hemoglobin (Bld) [Mass/Vol] 14.5 g/dL Normal 14.0-18.0 [facility] Comment on above: Performed By: #### M G, BMP, PHOS #### [facility] [address] [place] [address] Dr. David Magana IG # 0.14 10e3/ul Critically high 0.00-0.03 The [facility] Comment on above: Performed By: #### M ERICK Faith, PHOS #### [facility] [address] [place] [address] Dr. David Magana IG % 1.2 % Critically high 0.0-0.5 [facility] Comment on above: Performed By: #### ERICK Jacques, PHOS #### [facility] [address] [place] [address] Dr. David Magana LYMPH # 0.4 103/ul Critically low 1.2-3.8 [facility] Comment on above: Performed By: #### ERICK Jacques, PHOS #### [facility] [address] [place] [address] Dr. David Magana Lymphocytes/100 WBC (Bld) 3.4 % Critically low 20.5-60.0 [facility] Comment on above: Performed By: #### ERICK Jacques, PHOS #### [facility] [address] [place] [address] Dr. David Magana MANUAL DIFF REQ NO Normal [facility] Comment on above: Performed By: #### ERICK Jacques, PHOS #### [facility] [address] [place] [address] Dr. David Magana MCH (RBC) [Entitic mass] 33.3 pg Normal 25.9-34.0 [facility] Comment on above: Performed By: #### ERICK Jacques, PHOS #### [facility] [address] [place] [address] Dr. David Magana MCHC (RBC) [Mass/Vol] 33.6 g/dL Normal 29.9-35.2 [facility] Comment on above: Performed By: #### ERICK Jacques, PHOS #### [facility] [address] [place] [address] Dr. David Magana MCV (RBC) [Entitic vol] 98.9 fL Critically high 80.0-94.0 [facility] Comment on above: Performed By: #### M G, BMP, PHOS #### [facility] [address] [address] [address] David Magana MONO # 1.1 103/ul Critically high 0.3-0.8 [facility] Comment on above: Performed By: #### M G, BMP, PHOS #### [facility] [address] [address] [address] David Magana Monocytes/100 WBC (Bld) 8.9 % Normal 1.7-12.0 [facility] Comment on above: Performed By: #### M G, BMP, PHOS #### [facility] [address] [address] [address] David Magana NEUT # 10.3 103/ul Critically high 1.4-6.5 [facility] Comment on above: Performed By: #### M G, BMP, PHOS #### [facility] [address] [place] [address] Dr. David Magana Neutrophils/100 WBC (Bld) 86.2 % Critically high 43.0-75.0 [facility] Comment on above: Performed By: #### M G, BMP, PHOS #### [facility] [address] [address] [address] David Magana Platelet mean volume (Bld) [Entitic vol] 11.1 fL Normal 9.5-13.5 [facility] Comment on above: Performed By: #### M G, BMP, PHOS #### [facility] [address] [place] [address] Dr. David Magana PLT 229 103/ul Normal 150-450 [facility] Comment on above: Performed By: #### M G, BMP, PHOS #### [facility] [address] [address] [address] David Magana RBC 4.36 106/ul Critically low 4.70-6.10 [facility] Comment on above: Performed By: #### M G, BMP, PHOS #### [facility] [address] [address] [address] David Magana WBC 11.9 103/ul Critically high 4.0-11.0 [facility] Comment on above: Performed By: #### M G, BMP, PHOS #### [facility] [address] [address] [address] David Magana PROF CHEM 8 (BAS METB)on Anion gap [Moles/Vol] 26.5 mmol/L Normal [facility] Comment on above: Performed By: #### C BC #### [facility] [address] [place] [address] Dr. David Magana Calcium [Mass/Vol] 8.2 mg/dL Critically low 8.5-10.1 [facility] Comment on above: Performed By: #### C BC #### [facility] [address] [place] [address] Dr. David Magana Chloride [Moles/Vol] 89 mmol/L Critically low 98-107 [facility] Comment on above: Performed By: #### C BC #### [facility] [address] [place] [address] Dr. David Magana CO2 [Moles/Vol] 14.5 mmol/L Critically low 21.0-32.0 [facility] Comment on above: Performed By: #### C BC #### [facility] [address] [place] [address] Dr. David Magana Creatinine [Mass/Vol] 2.78 mg/dL Critically high 0.70-1.30 [facility] Comment on above: Performed By: #### C BC #### [facility] [address] [place] [address] Dr. David Magana EGFR-AF LATVIAN 27 mL/min/1.73m2 Critically low >=60 [facility] Comment on above: Performed By: #### C BC #### [facility] [address] [place] [address] Dr. David Magana EGFR-NON AF LATVIAN 22 mL/min/1.73m2 Critically low >=60 [facility] Comment on above: Performed By: #### C BC #### [facility] [address] [place] [address] Dr. David Magana Glucose [Mass/Vol] 442 mg/dL Critically high 74-106 [facility] Comment on above: Performed By: #### C BC #### [facility] [address] [address] [address] David Magana Potassium [Moles/Vol] 6.0 mmol/L Critically high 3.5-5.1 [facility] Comment on above: Performed By: #### C BC #### [facility] [address] [address] [address] David Magana Sodium [Moles/Vol] 124 mmol/L Critically low 136-145 Th e [facility] Comment on above: Performed By: #### C BC #### [facility] [address] [place] [address] Dr. David Magana Urea nitrogen [Mass/Vol] 73.0 mg/dL Critically high 7.0-18.0 [facility] Comment on above: Performed By: #### C BC #### [facility] [address] [place] [address] Dr. David Magana Urea nitrogen/Creatinine [Mass ratio] 26.3 mg/mg Normal [facility] Comment on above: Performed By: #### C BC #### [facility] [address] [place] [address] Dr. David Magana Covid-19 PCR ([facility])on 06-16 SARS-CoV-2 (COVID-19) RNA SULTANA+probe Ql (Unsp spec) Detected Critically abnormal NOT DETECTED [facility] Comment on above: Result Comment: This test is not yet approved or cleared by the [place] FDA. When there are no FDA-approved or cleared tests available, and other criteria are met, FDA can make tests available under an emergency access mechanism called an Emergency Use Authorization (EUA). The EUA for this test is supported by the [place] of Health and Human Service's (HHS's) declaration [...] longer be used). Performed By: #### M ERICK Faith PHOS #### [facility] [address] [id number] David Magana ECHOCARDIO M/2D COMPLETEon 0 07-01-2022 ECHOCARDIO M/2D COMPLETE Patient: NADIR HEREDIA Exam Date: 07/01/2022 : 1940 Gender:M Ordering : DR CLARIBEL PUGA M.D. Admission #: [id number] Family : VAN SUNG . Order #: [id number] CLICK HERE TO VIEW EXAM ECHOCARDIOGRAM REPORT [...] M.D. on 07/01/2022 at 16:27 Normal [facility] Covid-19 PCR ([facility])on SARS-CoV-2 (COVID-19) RNA SULTANA+probe Ql (Unsp spec) Not detected Normal NOT DETECTED [facility] Comment on above: Result Comment: When [...] for this test is supported by the [place] of Health and Human Service's declaration that [...] used). Performed By: #### C VDTB #### [facility] [address] [place] [address] Dr. David Magana CREATININE URINEon URINE CREAT 14.70 mg/dL Critically low 20.00-300.00 [facility] Comment on above: Performed By: #### M G, BMP, PHOS #### [facility] [address] [place] [address] Dr. David Magana GLYCOHEMOGLOBIN A1Con 2021 ADA RECOMMENDATION SEE BELOW Normal [facility] Comment on above: Result Comment: ADA RECOMMENDED LIMIT 4.0 - 6.0 ADA THERAPEUTIC TARGET < 7.0 ACTION SUGGESTED > 7.0 Performed By: #### A 1C #### [facility] [address] [place] [address] Dr. David Magana Glucose [Mass/Vol] 209 mg/dL Normal [facility] Comment on above: Performed By: #### A 1C #### [facility] [address] [place] [address] Dr. David Magana HbA1c (Bld) [Mass fraction] 8.9 % Critically high 4.5-6.2 [facility] Comment on above: Performed By: #### A 1C #### [facility] [address] [place] [address] Dr. David Magana MAGNESIUMon 06-08-2022 Magnesium [Mass/Vol] 2.3 mg/dL Normal 1.8-2.4 [facility] Comment on above: Performed By: #### M G, BMP, PHOS #### [facility] [address] [place] [address] Dr. David Magana PHOSPHORUSon 06-08-2022 Phosphate [Mass/Vol] 3.5 mg/dL Normal 2.6-4.7 [facility] Comment on above: Performed By: #### M G, BMP, PHOS #### [facility] [address] [place] [address] Dr. David Magana PROF CHEM 8 (BAS METB)on Anion gap [Moles/Vol] 10.6 mmol/L Normal [facility] Comment on above: Performed By: #### M G, BMP, PHOS #### [facility] [address] [place] [address] Dr. David Magana Calcium [Mass/Vol] 9.2 mg/dL Normal 8.5-10.1 [facility] Comment on above: Performed By: #### M Marcell, BMP, PHOS #### [facility] [address] [place] [address] Dr. David Magana Chloride [Moles/Vol] 102 mmol/L Normal 98-107 [facility] Comment on above: Performed By: #### M G, BMP, PHOS #### [facility] [address] [place] [address] Dr. David Magana CO2 [Moles/Vol] 30.1 mmol/L Normal 21.0-32.0 [facility] Comment on above: Performed By: #### M G, BMP, PHOS #### [facility] [address] [place] [address] Dr. David Magana Creatinine [Mass/Vol] 1.70 mg/dL Critically high 0.70-1.30 [facility] Comment on above: Performed By: #### M G, BMP, PHOS #### [facility] [address] [place] [address] Dr. David Magana EGFR-AF LATVIAN 47 mL/min/1.73m2 Critically low >=60 [facility] Comment on above: Performed By: #### ERICK Jacques, PHOS #### [facility] [address] [address] [address] David Magana EGFR-NON AF LATVIAN 39 mL/min/1.73m2 Critically low >=60 [facility] Comment on above: Performed By: #### ERICK Jacques, PHOS #### [facility] [address] [place] [address] Dr. David Magana Glucose [Mass/Vol] 197 mg/dL Critically high 74-106 T [facility] Comment on above: Performed By: #### ERICK Jacques, PHOS #### [facility] [address] [place] [address] Dr. David Magana Potassium [Moles/Vol] 4.7 mmol/L Normal 3.5-5.1 [facility] Comment on above: Performed By: #### ERICK Jacques, PHOS #### [facility] [address] [place] [address] Dr. David Magana Sodium [Moles/Vol] 138 mmol/L Normal 136-145 [facility] Comment on above: Performed By: #### ERICK Jacques, PHOS #### [facility] [address] [place] [address] Dr. David Magana Urea nitrogen [Mass/Vol] 25.0 mg/dL Critically high 7.0-18.0 [facility] Comment on above: Performed By: #### REICK Jacques, PHOS #### [facility] [address] [place] [address] Dr. David Magana Urea nitrogen/Creatinine [Mass ratio] 14.7 mg/mg Normal [facility] Comment on above: Performed By: #### ERICK Jacques, PHOS #### [facility] [address] [place] [address] Dr. David Magana PROTEIN RAND URINEon 022 UR PROT <5.0 Normal <=11.9 [facility] Comment on above: Performed By: #### C REDOREEN, PROTU #### [facility] [address] [place] [address] Dr. David Magana BILIRUBIN CONJUGATED (DIRECT )on 04-28-2022 BILI, CONJUGATED 0.1 mg/dL Normal 0.0-0.2 [facility] Comment on above: Performed By: #### P OCGLUC #### [facility] [address] [place] [address] Dr. David Magana CBC AUTO DIFFon 04-28-2022 BASO # 0.1 103/ul Normal 0.0-0.1 [facility] Comment on above: Performed By: #### C VDTBH #### [facility] [address] [place] [address] Dr. David Magana Basophils/100 WBC (Bld) 0.7 % Normal 0.2-2.0 [facility] Comment on above: Performed By: #### C VDTBH #### [facility] [address] [place] [address] Dr. David Magana EO # 0.5 103/ul Normal 0.0-0.7 [facility] Comment on above: Performed By: #### C VDTBH #### [facility] [address] [place] [address] Dr. Dvaid Magana Eosinophils/100 WBC (Bld) 6.7 % Normal 0.9-7.0 [facility] Comment on above: Performed By: #### C VDTBH #### [facility] [address] [place] [address] Dr. David Magana Erythrocyte distribution width (RBC) [Ratio] 13.6 % Normal 11.0-15.0 [facility] Comment on above: Performed By: #### C VDTBH #### [facility] [address] [place] [address] Dr. David Magana Hematocrit (Bld) [Volume fraction] 45.9 % Normal 42.0-54.0 [facility] Comment on above: Performed By: #### C VDTBH #### [facility] [address] [place] [address] Dr. David Magana Hemoglobin (Bld) [Mass/Vol] 14.9 g/dL Normal 14.0-18.0 [facility] Comment on above: Performed By: #### C VDTBH #### [facility] [address] [place] [address] Dr. David Magana IG # 0.03 10e3/ul Normal 0.00-0.03 [facility] Comment on above: Performed By: #### C VDTBH #### [facility] [address] [place] [address] Dr. David Magana IG % 0.4 % Normal 0.0-0.5 [facility] Comment on above: Performed By: #### C VDTBH #### [facility] [address] [place] [address] Dr. David Magana LYMPH # 1.0 103/ul Critically low 1.2-3.8 [facility] Comment on above: Performed By: #### C VDTBH #### [facility] [address] [place] [address] Dr. David Magana Lymphocytes/100 WBC (Bld) 13.4 % Critically low 20.5-60.0 [facility] Comment on above: Performed By: #### C VDTBH #### [facility] [address] [place] [address] Dr. David Magana MANUAL DIFF REQ NO Normal [facility] Comment on above: Performed By: #### C VDTBH #### [facility] [address] [place] [address] Dr. David Magana MCH (RBC) [Entitic mass] 33.8 pg Normal 25.9-34.0 [facility] Comment on above: Performed By: #### C VDTBH #### [facility] [address] [place] [address] Dr. David Magana MCHC (RBC) [Mass/Vol] 32.5 g/dL Normal 29.9-35.2 [facility] Comment on above: Performed By: #### C VDTBH #### [facility] [address] [address] [address] David Magana MCV (RBC) [Entitic vol] 104.1 fL Critically high 80.0-94.0 [facility] Comment on above: Performed By: #### C VDTBH #### [facility] [address] [place] [address] Dr. David Magana MONO # 0.8 103/ul Normal 0.3-0.8 [facility] Comment on above: Performed By: #### C VDTBH #### [facility] [address] [place] [address] Dr. David Magana Monocytes/100 WBC (Bld) 10.2 % Normal 1.7-12.0 [facility] Comment on above: Performed By: #### C VDTBH #### [facility] [address] [place] [address] Dr. David Magana NEUT # 5.1 103/ul Normal 1.4-6.5 [facility] Comment on above: Performed By: #### C VDTBH #### [facility] [address] [place] [address] Dr. David Magana Neutrophils/100 WBC (Bld) 68.6 % Normal 43.0-75.0 [facility] Comment on above: Performed By: #### C VDTBH #### [facility] [address] [place] [address] Dr. David Magana Platelet mean volume (Bld) [Entitic vol] 11.3 fL Normal 9.5-13.5 [facility] Comment on above: Performed By: #### C VDTBH #### [facility] [address] [place] [address] Dr. David Magana PLT 185 103/ul Normal 150-450 [facility] Comment on above: Performed By: #### C VDTBH #### [facility] [address] [place] [address] Dr. David Magana RBC 4.41 106/ul Critically low 4.70-6.10 [facility] Comment on above: Performed By: #### C VDTBH #### [facility] [address] [address] [address] David Magana WBC 7.5 103/ul Normal 4.0-11.0 [facility] Comment on above: Performed By: #### C VDTBH #### [facility] [address] [address] [address] David Magana FREE T3on 04-28-2022 FREE T3 2.17 pg/mlL Critically low 2.18-3.98 [facility] Comment on above: Performed By: #### P OCGLUC #### [facility] [address] [address] [address] David Magana LIPID PROFILEon 04-28-2022 CHOL-HDL RATIO NORM SEE BELOW Normal [facility] Comment on above: Result Comment: 3.3 - 4.4 LOW RISK 4.4 - 7.1 AVERAGE RISK 7.1 - 11.0 MODERATE RISK >11.0 HIGH RISK Performed By: #### P OCGLUC #### [facility] [address] [address] [address] David Magana Cholesterol [Mass/Vol] 234 mg/dL Critically high <=200 [facility] Comment on above: Performed By: #### P OCGLUC #### [facility] [address] [address] [address] David Magana Cholesterol in HDL [Mass/Vol] 58 mg/dL Normal 40-60 [facility] Comment on above: Performed By: #### P OCGLUC #### [facility] [address] [address] [address] David Magana Cholesterol in LDL [Mass/Vol] 129.0 mg/dL Normal [facility] Comment on above: Performed By: #### P OCGLUC #### [facility] [address] [address] [address] David Magana Cholesterol.total/Cho lesterol in HDL [Mass ratio] 4.0 {ratio} Normal [facility] Comment on above: Performed By: #### P OCGLUC #### [facility] [address] [address] [address] David Magana HDL NORMAL > or = 60 mg/dl - LOW CARDIOVASCULAR RISK <40 mg/dl - HIGH CARDIOVASCULAR RISK Normal [facility] Comment on above: Performed By: #### P OCGLUC #### [facility] [address] [address] [address] David Magana LDL CALC NORMAL SEE BELOW Normal [facility] Comment on above: Result Comment: <100 mg/dl OPTIMAL 100 - 129 mg/dl NEAR OR ABOVE OPTIMAL 130 - 159 mg/dl BORDERLINE HIGH 160 - 189 mg/dl HIGH >190 mg/dl VERY HIGH Performed By: #### P OCGLUC #### [facility] [address] [address] [address] David Magana Triglyceride [Mass/Vol] 235 mg/dL Critically high <=150 [facility] Comment on above: Performed By: #### P OCGLUC #### [facility] [address] [address] [address] David Magana VLDL CALC 47.0 mg/dL Normal [facility] Comment on above: Performed By: #### P OCGLUC #### [facility] [address] [place] [address] Dr. David Magana PROF 14(COMP METB)on 022 Albumin [Mass/Vol] 3.2 g/dL Critically low 3.4-5.0 [facility] Comment on above: Performed By: #### P OCGLUC #### [facility] [address] [place] [address] Dr. David Magana Albumin/Globulin [Mass ratio] 0.9 {ratio} Normal [facility] Comment on above: Performed By: #### P OCGLUC #### [facility] [address] [address] [address] David Magana ALP [Catalytic activity/Vol] 77 U/L Normal 46-116 [facility] Comment on above: Performed By: #### P OCGLUC #### [facility] [address] [place] [address] Dr. David Magana ALT [Catalytic activity/Vol] 24 U/L Normal 16-63 [facility] Comment on above: Performed By: #### P OCGLUC #### [facility] [address] [address] [address] David Magana Anion gap [Moles/Vol] 13.1 mmol/L Normal [facility] Comment on above: Performed By: #### P OCGLUC #### [facility] [address] [address] [address] David Magana AST [Catalytic activity/Vol] 13 U/L Critically low 15-37 [facility] Comment on above: Performed By: #### P OCGLUC #### [facility] [address] [address] [address] David Magana Bilirubin [Mass/Vol] 0.3 mg/dL Normal 0.2-1.0 [facility] Comment on above: Performed By: #### P OCGLUC #### [facility] [address] [address] [address] David Magana Calcium [Mass/Vol] 8.8 mg/dL Normal 8.5-10.1 [facility] Comment on above: Performed By: #### P OCGLUC #### [facility] [address] [address] [address] David Magana Chloride [Moles/Vol] 106 mmol/L Normal 98-107 [facility] Comment on above: Performed By: #### P OCGLUC #### [facility] [address] [address] [address] David Magana CO2 [Moles/Vol] 27.5 mmol/L Normal 21.0-32.0 [facility] Comment on above: Performed By: #### P OCGLUC #### [facility] [address] [address] [address] David Magana Creatinine [Mass/Vol] 1.62 mg/dL Critically high 0.70-1.30 [facility] Comment on above: Performed By: #### P OCGLUC #### [facility] [address] [address] [address] David Magana EGFR-AF LATVIAN 50 mL/min/1.73m2 Critically low >=60 [facility] Comment on above: Performed By: #### P OCGLUC #### [facility] [address] [address] [address] David Magana EGFR-NON AF LATVIAN 41 mL/min/1.73m2 Critically low >=60 [facility] Comment on above: Performed By: #### P OCGLUC #### [facility] [address] [address] [address] David Magana Globulin (S) [Mass/Vol] 3.4 g/dL Normal [facility] Comment on above: Performed By: #### P OCGLUC #### [facility] [address] [address] [address] David Magana Glucose [Mass/Vol] 206 mg/dL Critically high 74-106 [facility] Comment on above: Performed By: #### P OCGLUC #### [facility] [address] [address] [address] David Magana Potassium [Moles/Vol] 4.6 mmol/L Normal 3.5-5.1 [facility] Comment on above: Performed By: #### P OCGLUC #### [facility] [address] [address] [address] David Magana Protein [Mass/Vol] 6.6 g/dL Normal 6.4-8.2 [facility] Comment on above: Performed By: #### P OCGLUC #### [facility] [address] [address] [address] David Magana Sodium [Moles/Vol] 142 mmol/L Normal 136-145 [facility] Comment on above: Performed By: #### P OCGLUC #### [facility] [address] [address] [address] David Magana Urea nitrogen [Mass/Vol] 26.0 mg/dL Critically high 7.0-18.0 [facility] Comment on above: Performed By: #### P OCGLUC #### [facility] [address] [address] [address] David Magana Urea nitrogen/Creatinine [Mass ratio] 16.0 mg/mg Normal [facility] Comment on above: Performed By: #### P OCGLUC #### [facility] [address] [address] [address] David Magana T4on 04-28-2022 T4 [Mass/Vol] 7.70 ug/dL Normal 4.50-12.10 [facility] Comment on above: Performed By: #### P OCGLUC #### [facility] [address] [place] [address] Dr. David Magana TSHon 04-28-2022 TSH 2.187 uIU/mL Normal 0.358-3.740 [facility] Comment on above: Performed By: #### P OCGLUC #### [facility] [address] [place] [address] Dr. David Magana TSH RANGE SEE BELOW Normal [facility] Comment on above: Result Comment: <0.3 4 UIU/ml HYPERTHYROID 0.34-5.60 UIU/ml EUTHYROID >5.60 UIU/ml HYPOTHYROID Performed By: #### P OCGLUC #### [facility] [address] [place] [address] Dr. David Magana Vital Signs Date Time Vital Sign Value Performing Clinician Facility 10-14-2023 14:33-0500 Diastolic blood pressure 70 mm[Hg] Nereyda Gomez [facility] 10-14-2023 14:33-0500 Mean blood pressure 93 mm[Hg] Nereyda Joyametz [facility] 10-14-2023 14:33-0500 Systolic blood pressure 138 mm[Hg] Nereyda Joyametz [facility] 10-14-2023 14:18-0500 Blood Pressure Location Nereydabruce JoyaPatricia [facility] 10-14-2023 14:18-0500 Body temperature 97.88 [degF] Nereyda Joyametz [facility] 10-14-2023 14:18-0500 Diastolic blood pressure 73 mm[Hg] Nereyda Joyametz [facility] 10-14-2023 14:18-0500 Heart rate 91 /min Nereyda Patricia [facility] 10-14-2023 14:18-0500 Systolic blood pressure 143 mm[Hg] Nereyda Patricia [facility] 10-01-2023 12:13-0500 Diastolic blood pressure 66 mm[Hg] Nereyda Patricia [facility] 10-01-2023 12:13-0500 Mean blood pressure 104 mm[Hg] Nereyda Patricia [facility] 10-01-2023 12:13-0500 Systolic blood pressure 179 mm[Hg] Nereyda Patricia [facility] 10-01-2023 12:10-0500 Blood Pressure Location Nereyda Patricia [facility] 10-01-2023 12:10-0500 Body temperature 98.42 [degF] Nereyda Patricia [facility] 10-01-2023 12:10-0500 Diastolic blood pressure 77 mm[Hg] Nereyda Patricia [facility] 10-01-2023 12:10-0500 Heart rate 81 /min Nereyda Patricia [facility] 10-01-2023 12:10-0500 Respiratory rate 14 /min Nereyda Patricia [facility] 10-01-2023 12:10-0500 Systolic blood pressure 168 mm[Hg] Nereyda Patricia [facility] 06-10-2023 10:43-0400 Diastolic blood pressure 64 mm[Hg] Nereyda Patricia [facility] 06-10-2023 10:43-0400 Heart rate 76 /min Nereyda Patricia [facility] 06-10-2023 10:43-0400 Respiratory rate 16 /min Nereydabruce JoyaPatricia [facility] 06-10-2023 10:43-0400 SaO2% (BldA) [Mass fraction] 95 % Nereyda Patricia [facility] 06-10-2023 10:43-0400 Systolic blood pressure 121 mm[Hg] Nereyda Patricia [facility] 04-13-2023 14:19-0400 Diastolic blood pressure 70 mm[Hg] Nereyda Patricia [facility] 04-13-2023 14:19-0400 Mean blood pressure 95 mm[Hg] Nereyda Patricia [facility] 04-13-2023 14:19-0400 Systolic blood pressure 146 mm[Hg] Nereyda Patricia [facility] 04-13-2023 14:15-0400 Blood Pressure Location Nereyda Patricia [facility] 04-13-2023 14:15-0400 Body temperature 97.7 [degF] Nereyda Patricia [facility] 04-13-2023 14:15-0400 Diastolic blood pressure 87 mm[Hg] Nereyda Patricia [facility] 04-13-2023 14:15-0400 Heart rate 70 /min Nereyda Patricia [facility] 04-13-2023 14:15-0400 Systolic blood pressure 150 mm[Hg] Nereyda Gomez [facility] 06-09-2022 10:02-0400 Body temperature 96.98 [degF] Nereyda Donatoz [facility] 06-09-2022 10:02-0400 Diastolic blood pressure 75 mm[Hg] Nereyda Gomez [facility] 06-09-2022 10:02-0400 Heart rate 72 /min Nereyda Gomez [facility] 06-09-2022 10:02-0400 SaO2% (BldA) [Mass fraction] 97 % Nereyda Gomez [facility] 06-09-2022 10:02-0400 Systolic blood pressure 139 mm[Hg] Nereyda Gomez [facility] 05-11-2022 11:30-0400 Diastolic blood pressure 102 mm[Hg] Bender SALAM [facility] 05-11-2022 11:30-0400 Heart rate 86 /min Bender SALAM [facility] 05-11-2022 11:30-0400 Respiratory rate 15 /min Bender SALAM [facility] 05-11-2022 11:30-0400 SaO2% (BldA) [Mass fraction] 95 % Bender SALAM [facility] 05-11-2022 11:30-0400 Systolic blood pressure 172 mm[Hg] Bender SALAM [facility] 05-11-2022 11:15-0400 Diastolic blood pressure 88 mm[Hg] Bender SALAM [facility] 05-11-2022 11:15-0400 Heart rate 86 /min Bender SALAM [facility] 05-11-2022 11:15-0400 Respiratory rate 18 /min Bender SALAM [facility] 05-11-2022 11:15-0400 SaO2% (BldA) [Mass fraction] 97 % Bender SALAM [facility] 05-11-2022 11:15-0400 Systolic blood pressure 170 mm[Hg] Bender SALAM [facility] 05-11-2022 11:10-0400 Diastolic blood pressure 108 mm[Hg] Bender SALAM [facility] 05-11-2022 11:10-0400 Heart rate 85 /min Bender SALAM [facility] 05-11-2022 11:10-0400 Respiratory rate 14 /min Bender SALAM [facility] 05-11-2022 11:10-0400 SaO2% (BldA) [Mass fraction] 97 % Bender SALAM [facility] 05-11-2022 11:10-0400 Systolic blood pressure 157 mm[Hg] Bender SALAM [facility] 05-11-2022 11:02-0400 Body temperature 97.34 [degF] Bender SALAM [facility] 05-11-2022 10:27-0400 Blood Pressure Location Bender SALAM [facility] 05-11-2022 10:23-0400 Blood Pressure Location Napoleon MARKAM [facility] 05-11-2022 10:23-0400 Body temperature 98.24 [degF] Napoleon MARKAM [facility] 03-31-2022 09:53-0400 Blood Pressure Location Nereyda Gomez [facility] 03-31-2022 09:53-0400 Body temperature 97.7 [degF] Nereyda Gomez [facility] 03-31-2022 09:53-0400 Diastolic blood pressure 72 mm[Hg] Neryeda Donatoz [facility] 03-31-2022 09:53-0400 Heart rate 73 /min Nereyda Gomez [facility] 03-31-2022 09:53-0400 SaO2% (BldA) [Mass fraction] 96 % Nereyda Donatoz [facility] 03-31-2022 09:53-0400 Systolic blood pressure 129 mm[Hg] Nereyda Joyametz [facility] Encounters Encounter Date Encounter Type Care Provider Facility Start: 06-07-2024 End: 06-07-2024 ambulatory RUTHIE LINDA [facility] Start: 06-05-2024 End: [facility]05[facility]: 06-01-2024 End: 06-01-2024 ambulatory ROBINSON Cara AVIVA Not Available Start: 04-20-2024 End: 04-20-2024 ambulatory ROBINSON A AVIVA Not Available Start: 03-03-2024 End: 03-03-2024 ambulatory [facility] Start: 02-10-2024 End: 02-10-2024 ambulatory ROBINSON A AVIVA Not Available Start: 02-02-2024 ambulatory Nereyda A Patricia Facili ty:[facility] Start: 01-11-2024 End: 01-11-2024 ambulatory BARRIE FLANNERYBubba Not Available Start: 12-09-2023 ambulatory Nereyda A Patricia Facili ty:[facility] Start: 12-02-2023 End: 12-02-2023 ambulatory ROBINSON A AVIVA Not Available Start: 11-17-2023 End: 11-17-2023 [facility] Start: 10-14-2023 End: 10-15-2023 ambulatory Nereyda A Patricia Facility:[facility] Start: 10-14-2023 End: 10-14-2023 Patient encounter procedure Nereyda A Patricia [facility] Start: 10-01-2023 End: 10-02-2023 ambulatory Nereyda A Patricia Facility:[facility] Start: 10-01-2023 End: 10-02-2023 ambulatory Nereyda A Patricia Facility:[facility] Start: 10-01-2023 End: 10-01-2023 Patient encounter procedure Nereyda A Patricia [facility] Start: 10-01-2023 End: 10-01-2023 Patient encounter procedure Nereyda A Patricia [facility] Start: 09-17-2023 End: 09-17-2023 ambulatory [facility] Start: 09-13-2023 End: 09-14-2023 [facility] Start: 09-13-2023 End: 09-13-2023 Patient encounter procedure Nereyda Gomez [facility] Start: 08-31-2023 End: 08-31-2023 ambulatory [facility] Start: 07-21-2023 End: 07-21-2023 ambulatory [facility] Start: 06-10-2023 End: 06-11-2023 ambulatory Nereyda Gomez [facility] Start: 06-10-2023 End: 06-10-2023 Patient encounter procedure Nereyda Gomez [facility] Start: 04-15-2023 End: 04-16-2023 ambulatory Nereyda Gomez Facility:[facility] Start: 04-15-2023 End: 04-15-2023 Lab Drop off Nereyda Gomez [facility] Start: 04-13-2023 End: 04-14-2023 ambulatory Nereyda Gomez Facility:[facility] Start: 04-13-2023 End: 04-13-2023 Patient encounter procedure Nereyda Gomez [facility] Start: 03-24-2023 End: 03-25-[address] RUTHIE LINDA Facility:[facility] Start: 03-08-2023 ambulatory Francisco FRYE Facility :[facility] Start: 02-27-2023 End: 02-28-[address] VAN Dennis Facility:[facility] Start: 12-28-2022 End: 12-29-[address] RUTHIE LINDA Facility:[facility] Start: 11-16-2022 End: 11-17-[address] RUTHIE LINDA Facility:[facility] Start: 11-02-2022 End: 11-03-[address] VNA SUNG . Facility:[facility] Start: 07-18-2022 End: 07-22-2022 Evaluation and management of inpatient DR VAN SUNG . Facility:[facility] Start: 07-13-2022 End: 07-13-[address] VAN SUNG . Facility:[facility] Start: 07-01-2022 End: 07-02-[address] CLARIBEL PUGA Facility:[facility] Start: 06-16-2022 End: 06-16-[address] VAN SUNG . Facility:[facility] Start: 06-09-2022 End: 06-09-2022 Patient encounter procedure Nereyda Gomez [facility] Start: 06-08-2022 End: 06-09-2022 ambulatory GAMALIEL DALEY Facility:[facility] Start: 05-11-2022 End: 05-11-2022 Patient encounter procedure Napoleon MENDEZ [facility] Start: 04-28-2022 End: 04-29-[address] VAN SUNG . Facility:[facility] Start: 03-31-2022 End: 03-31-2022 Patient encounter procedure Nereyda Gomez [facility] Start: 2019 End: 02-07-2019 Patient encounter procedure DEFAULT PHYSICIAN Facility:[facility] Procedures Date Procedure Procedure Detail Performing Clinician Start: 05-11-2022 Colonoscopy Napoleon Fernandez Comment on above: 2 polyps, diveticulo sis, IH Start: 01-11-2017 Cardioversion Nereyda vaughan Back structure, excl uding neck (body structure) Nereyda Gomez Cholecystectomy Nereyda mcdonough Colonoscopy Nereyda Gomez History of hernia repair Ave Gomez Tonsillectomy Nereyda Gomez Immunizations Immunization Date Immunization Notes Care Provider Lashell angel 10-21-2022 SARS-CoV-2 (COVID-19 ) [id number] Nereyda Gomez [facility] Comment on above: Result Comment: 2022: [id number] 08-26-2021 SARS-CoV-2 (COVID-19 ) mRNA BNT-162b2 vax Nereyda Gomez [facility] 01-01-2021 SARS-CoV-2 (COVID-19 ) mRNA BNT-162b2 vax Nereyda Gomez [facility] 12-09-2020 SARS-CoV-2 (COVID-19 ) mRNA BNT-162b2 vax Nereyda Gomez [facility] 08-27-2020 influenza virus vaccine, unspecified formulation Nereyda Donatoz [facility] 08-16-2017 pneumococcal conjugate vaccine, 13 valent Nereyda Gomez [facility] 08-05-2017 influenza, unspecified formulation Nereyda Donatoz [facility] 09-20-2015 zoster vaccine, live Nereyda einmetz [facility] NEGATED: Highlighted row has not occurred!10-13-2023 influenza virus vaccine, unspecified formulation Nereyda Patricia [facility] NEGATED: Highlighted row has not occurred!09-29-2023 influenza virus vaccine, unspecified formulation Nereyda Patricia [facility] Payers Date Payer Category Payer Unknown [id number] 1960 Medicare [id number] 1940 Unknown [id number] 2.16.8 40.1.650766.3.579.2.647 1939 Unknown [id number] 2.16.84 0.1.409884.3.579.2.593 1939 Unknown [id number] 2.16.84 0.1.848757.3.579.2.593 1939 Unknown [id number] 2.16.84 0.1.140661.3.579.2.593 1939 Unknown [id number] 2.16.84 0.1.433892.3.579.2.593 1939 Unknown [id number] 2.16.84 0.1.145859.3.579.2.593 1939 Unknown [id number] 2.16.84 0.1.666675.3.579.2.593 1939 Unknown [id number] 2.16.84 0.1.874184.3.579.2.593 1939 Unknown [id number] 2.16.84 0.1.606392.3.579.2.593 1939 Unknown [id number] 2.16.84 0.1.019059.3.579.2.593 1939 Unknown [id number] 2.16.84 0.1.254858.3.579.2.593 1939 Unknown [id number] 2.16.84 0.1.096386.3.579.2.593 1939 Unknown [id number] 2.16.8 40.1.049283.3.579.2.727 1939 Unknown [id number] 2.16.8 40.1.674123.3.579.2.727 1939 Unknown [id number] 2.16.8 40.1.561796.3.579.2.727 1939 Unknown [id number] 2.16.8 40.1.168595.3.579.2.727 1939 Unknown [id number] 2.16.8 40.1.605329.3.579.2.727 1939 Unknown [id number] 2.16.8 40.1.661448.3.579.2.727 1939 Unknown [id number] 2.16.8 40.1.386407.3.579.2.727 1939 Unknown [id number] 2.16.8 40.1.745166.3.579.2.727 1939 Unknown [id number] 2.16.8 40.1.165357.3.579.2.727 1939 Unknown [id number] 2.16.8 40.1.126683.3.579.2.727 1939 Unknown [id number] 2.16.8 40.1.164051.3.579.2.727 1939 Unknown [id number] 2.16.84 0.1.759612.3.579.2.1259 1939 Unknown [id number] 2.16.84 0.1.891166.3.579.2.1259 1939 Unknown [id number] 2.16.84 0.1.229474.3.579.2.1259 1939 Unknown [id number] 2.16.84 0.1.541530.3.579.2.1259 1939 Unknown [id number] 2.16.84 0.1.727154.3.579.2.1259 Unknown Social History Date Type Detail Facility Start: 03-31-2022 End: 10-14-2023 Tobacco smoking status Ex-smoker (finding) [facility] Sex Assigned At Male [facility] Functional Status Date Assessment Result Facility 10-14-2023 Functional Status N/A [facility] 10-01-2023 Functional Status No [facility] 04-13-2023 Functional Status N/A [facility] 06-09-2022 Functional Status N/A [facility] 05-11-2022 Functional Status N/A [facility] Clinical Notes 03-31-2022 to 06-07-2024 Note Date & Type Note Facility 06-07-2024 Note Attestation signed by Ruthie Linda MD at 06/07/2024 7:40 PM I saw, interviewed, examined and evaluated the patient with Nephrology fellow Dr. Jeff Hutton. I participated in the medical management of the patient. I reviewed the fellow's note and agree with the fellow's documentation in the note. Ruthie Linda MD Faculty, Division of Nephrology, Department of Medicine, [facility]. [facility] Patient: Nadir Heredia; 84 y.o. Visit date: 06/07/24 Reason for today's visit: Follow up for CKD stage 3, Hypertension, Edema/ Fluid overload, and Electrolytes disturbances SUBJECTIVE: BACKGROUND: Nadir Heredia is a 84 y.o. male has a past medical history of Atrial fibrillation ([facility]), CHF (congestive heart failure) ([facility]), Chronic kidney disease, COPD (chronic obstructive pulmonary disease) ([facility]), Coronary artery disease, Diabetes mellitus ([facility]), Heart valve disease, Hypertension, Pericardial effusion, and Sleep apnea. History of paroxysmal atrial fibrillation maintained on anticoagulation with Eliquis, aortic stenosis, renal artery stenosis, and hypertension. He had stenting of the left renal artery from the left radial approach on 05/01/2015 (Express SD 6 mm x 18 mm stent). He was admitted to the [facility] in August 2022 due to hyponatremia, hyperkalemia and acute kidney injury, leukocytosis secondary to COVID-19 causing dehydration Today 06/07/24 patient presents for a follow-up visit: Patient presents for a follow up visit. Feeling well, no major complaints or issues. He does have some lower extremity edema and has urinated frequently with lasix which he takes twice a day. He had his hydralazine discontinued and had noted pericardial effusion per cardiology. His blood pressure Blood pressure & heart rate: Visit Vitals BP (!) 197/78 (BP Location: Left arm, Patient Position: Sitting) Pulse 71 Resp 12 ---- Review of systems In addition to above: OBJECTIVE: Visit Vitals BP (!) 197/78 (BP Location: Left arm, Patient Position: Sitting) Pulse 71 Resp 12 Ht 1.854 m (6' 1 ) Wt 91 kg (200 lb 9.6 oz) BMI 26.47 kg/m??? Smoking Status Former BSA 2.16 m??? Physical Exam Constitutional: General: He is [...] and oriented to person, place, and time. Sensory: No sensory deficit. Motor: No weakness. Psychiatric: Mood and Affect: Mood normal. Recent Labs I have reviewed the patient's most recent labs as listed below: Hematology & Iron studies: No results found for: WBC , HGB , HCT , MCV , PLT , IRON , TIBC , UIBC , FETIBC , IRONSAT , FERRITIN Urine studies: Urine chemistry No results found for: PROTUR , CREATUR , MICROALBCREA , ALBCREA , ALBUMINUR , NAUR , UREAUR , KURINE , CLUR , MGUR 2. Urinalysis & Microscopy: No results found for: COLORU , CLARITYU , SPECGRAVU , MIR , PROTUR , LEUKOCYTESU , NITRITEU , GLUCOSEU , KETONESU , BILIRUBINUR , UROBILINOGEN , BLOODU , RBCU , WBCU , SQUAMEPIU , MUCUSU , TRIPHOCRYU , CAOXALCRU , CAPHOSCRYU Serology & Other labs: No results found for: SHERRY , ANATITER , ANCA , RF , CCP , RO , HEPCAB , HEPBAGC1 , HEPBAGC2 , HEPBAGINTERP , HEPBSAG , HEPBCOREAB HOME MEDICATIONS & PAST MEDICAL/SOCIAL/FAMILY HISTORY: Home medications Outpatient Encounter Medications as of 06/07/2024 Medication Sig Dispense Refill acyclovir (Zovirax) 400 [...] 1 tablet every day by oral route. cholecalciferol (Vitamin D3) 25 (more content not included)... [facility] 06-05-2024 Note [facility] Subjective Nadir Heredia is a 84 [...] diuretic therapy. He was admitted to the [facility] in August 2022 due to hyponatremia, hyperkalemia and acute kidney injury, leukocytosis secondary to COVID-19 causing dehydration. I saw him on 05/24/2023 and the office and he had significant evidence of volume overload by exam and echocardiogram. I intensified his diuretic regimen. He ended up getting admitted to the [facility] with acute heart failure exacerbation and [...] and 2+ o (more content not included)... [facility] 03-03-2024 Note [place] [facility] Subjective Nadir Heredia is a 84 [...] extremity edema. He was admitted to the [facility] in August 2022 due to hyponatremia, hyperkalemia and acute kidney injury, leukocytosis secondary to COVID-19 causing dehydration. I saw him on 05/24/2023 and the office and he had significant evidence of volume overload by exam and echocardiogram. I intensified his diuretic regimen. He ended up getting admitted to the [facility] with acute heart failure exacerbation and [...] Musculoskeletal: General: N (more content not included)... [facility] 11-17-2023 Note Attestation signed by Ruthie Linda MD at 11/21/2023 6:55 PM I saw, interviewed, examined and evaluated the patient with Nephrology fellow, Dr. Dana Aparicio. I participated in the medical management of the patient. I reviewed the fellow's note and agree with the fellow's documentation in the note. Ruthie Linda MD Faculty, Division of Nephrology, Department of Medicine, [facility]. [facility] Patient: Nadir Heredia; 83 y.o. Visit date: 11/17/23 Reason for today's visit: Follow up for CKD stage 3, Hypertension, Edema/ Fluid overload, and Electrolytes disturbances SUBJECTIVE: BACKGROUND: Nadir Heredia is a 83 y.o. male has a past medical history of Atrial fibrillation ([facility]), CHF (congestive heart failure) ([facility]), Chronic kidney disease, COPD (chronic obstructive pulmonary disease) ([facility]), Coronary artery disease, Diabetes mellitus ([facility]), Heart valve disease, Hypertension, Pericardial effusion, and Sleep apnea. History of paroxysmal atrial fibrillation maintained on anticoagulation with Eliquis, aortic stenosis, renal artery stenosis, and hypertension. He had stenting of the left renal artery from the left radial approach on 05/01/2015 (Express SD 6 mm x 18 mm stent). He was admitted to the [facility] in August 2022 due to hyponatremia, [...] place, and time (more content not included)... [facility] 10-14-2023 Hospital Discharge instructions Patient Education [...] as fried or sweet foods. These include north korean fries, hamburgers, cookies, candies, and soda. Drink enough fluid to keep your urine pale yellow. General instructions Exercise regularly or as told by your health care provider. Try to do 150 minutes of moderate exercise each week. Use the bathroom when you have the urge to go. Do not hold it in. Take gmeb-miz-mtmjger and prescription medicines only as told by [...] to keep your urine pale yellow. Take yvcw-kci-jmrrqga and prescription medicines only as told by your health care provider. This includes any fiber supplements. This information is not intended to replace advice given to you by your health care provider. Make sure you discuss any questions you have with your health care provider. Document Revised: 09/18/2020 Document Reviewed: 09/18/2020 [employer] Patient Education 2022 SafeStore. Follow Up Care 10/01/2023 12:57:46 With:Nereyda Gomez CNP Address: When:1 month [facility] 10-01-2023 Hospital Discharge instructions [...] Bulgur wheat. Millet. Quinoa. Bran muffins. Popcorn. [place] wafer crackers. Meats and other proteins [place] beans, kidney beans, and mendez beans. Soybeans. [...] Cream cheese. Sour cream. Fats and oils [place]. Beverages Soft drinks. Other foods Cakes and [...] provider. Document Revised: 03/06/2021 Document Reviewed: 03/06/2021 [employer] Patient Education 2022 SafeStore. Follow Up Care 09/20/2023 08:43:45 With:Nereyda Gomez CNP Address:Unknown When: Unknown [facility] 09-17-2023 Note [place] [facility] Subjective Nadir Heredia is a [...] extremity edema. He was admitted to the [facility] in August 2022 due to hyponatremia, hyperkalemia and acute kidney injury, leukocytosis secondary to COVID-19 causing dehydration. I saw him on 05/24/2023 and the office and he had significant evidence of volume overload by exam and echocardiogram. I intensified his diuretic regimen. He ended up getting admitted to the [facility] with acute heart failure exacerbation and [...] Allergies Allergen Reactions Iodinated Contrast Media Nitroglycerin Aqslkuv-Mpk-Jlg Reductase Inhibitors Medications Current Outpatient Medications: (more content not included)... [facility] 08-31-2023 Note Patient: Nadir lin Procedure Information Date/Time: 08/31/23 1300 Procedure: TRANSESOPHAGEAL ECHO (MARK) Location: [facility] Vascular Lab Clinical information reviewed: Allergies Meds Physical Exam Airway Mallampati: III TM distance: >3 FB Cardiovascular Rhythm: regular Rate: normal (+) murmur Dental Pulmonary Breath sounds clear to auscultation Abdominal Abdomen: soft Anesthesia Plan ASA 4 (Conscious sedation) Anesthetic plan and risks discussed with patient. Use of blood products discussed with patient who. Additional Equipment Requests [facility] 07-21-2023 Note [place] [facility] Subjective Nadir Heredia is a 83 y.o. year old male patient being seen for Follow-up Patient Active Problem List Diagnosis Aortic valve disorder Atherosclerosis of renal artery (CMS/HCC) Chronic atrial fibrillation ([facility]/HCC) Coronary arteriosclerosis Bradycardia Aortic valve stenosis [...] extremity edema. He was admitted to the [facility] in August 2022 due to hyponatremia, hyperkalemia and acute kidney injury, leukocytosis secondary to COVID-19 causing dehydration. I saw him on 05/24/2023 and the office and he had significant evidence of volume overload by exam and echocardiogram. I intensified his diuretic regimen. He ended up getting admitted to the [facility] with acute heart failure exacerbation and [...] Allergies Allergen Reactions Iodinated Contrast Media Nitroglycerin Kmzydam-Bti-Cvz Reductase Inhibitors Medications Current Outpatient Medications: acyclovir [...] every day by (more content not included)... [facility] 06-10-2023 Hospital Discharge instructions Patient Education [...] hard liquor (44 mL). General instructions Take dslf-hku-jnbchvl and prescription medicines only as told by [...] provider. Document Revised: 02/19/2021 Document Reviewed: 02/19/2021 [employer] Patient Education 2022 SafeStore. Follow Up Care 04/13/2023 14:39:27 With:Nereyda Gomez CNP Address: When:3 months [facility] 04-13-2023 Hospital Discharge instructions [...] including vitamins, herbs, eye drops, creams, and kdnu-bsw-pistwrn medicines. Any problems you or family members [...] provider tells you to take them. Taking avug-wss-qlexajx medicines, vitamins, herbs, and supplements. General instructions [...] provider. Document Revised: 10/26/2022 Document Reviewed: 06/24/2022 [employer] Patient Education 2022 SafeStore. Follow Up Care 04/09/2023 11:27:16 With:Nereyda Gomez CNP Address: When:1 month [facility] 04-13-2023 Note Radiology Colonoscopy, [...] including vitamins, herbs, eye drops, creams, and kaor-sgx-fqvsifl medicines. ? Any problems you or family [...] tells you to take them. ? Taking icvh-hyz-oqpjiew medicines, vitamins, herbs, and supplements. General instructions [...] for cancer cells. (more content not included)... [facility] 07-18-2022 Note EXAM: US CHANI [...] authenticated by: LI ROBERTS Date: 2022-07-18 09:05 [facility] 06-09-2022 Hospital Discharge instructions Patient [...] per serving. Talk with a diet and nutrition consultant (dietitian) if you have questions about specific [...] Bulgur wheat. Millet. Quinoa. Bran muffins. Popcorn. [place] wafer crackers. Meats and other proteins [place], kidney, and [place]endez beans. Soybeans. Split peas. [...] Cream cheese. Sour cream. Fats and oils [place]. Beverages Soft drinks. Other foods Cakes and [...] 11/01/2006 Document Revised: 09/05/2018 Document Reviewed: 09/05/2018 [employer] Patient Education 2020 SafeStore. 06/09/2022 10:13:34 Hemorrhoids Hemorrhoids Hemorrhoids are swollen [...] 3 times a day. General instructions Take shmp-tot-szfoumx and prescription medicines only as told by [...] 10/29/2001 Document Revised: 03/29/2020 Document Reviewed: 03/23/2019 [employer] Patient Education 2020 SafeStore. 06/09/2022 10:13:31 Diverticulosis Diverticulosis Diverticulosis is a [...] overweight. Not getting enough exercise. Smoking. Taking ztiv-zeg-kcstfve pain medicines, like aspirin and ibuprofen. Having [...] health care provider or your diet and nutrition consultant (dietitian). ?Take a fiber supplement or probiotic, if your health care provider approves. Take gkmn-lox-daxjecx and prescription medicines only as told by [...] 07/29/2005 Document Revised: 10/14/2018 Document Reviewed: 09/20/2017 [employer] Patient Education 2020 SafeStore. 06/09/2022 10:13:30 Colon Polyps Colon Polyps Polyps [...] 07/28/2005 Document Revised: 02/16/2019 Document Reviewed: 02/16/2019 [employer] Patient Education 2020 [employer] Follow Up Care 05/13/2022 14:18:17 With:Nereyda Gomez CNP Address: When:1 year only if needed [facility] 05-11-2022 Evaluation + Plan note Extrac fernando from: Title:Anesthesia post op endo Author:Jeffrey Gr MD Date:05/11/22 Plan Transfer/ Discharge: Patient can be discharged from PACU when criteria met. Condition good. Extracted from: Title:Anesthesia Pre-Op endo 2 Author:Jeffrey Gr MD Date:05/11/22 Plan [place] [employer] Anesthesiologists (ASA) physical status classification: [...] and lungs, allergic reactions, and .. [facility]06-27-2022 Hospital Discharge instructions Patient Education 05/11/2022 11:13:39 [...] 07/28/2005 Document Revised: 02/16/2019 Document Reviewed: 02/16/2019 [employer] Patient Education 2020 SafeStore. 05/11/2022 11:13:39 Diverticulosis MAGR (CUSTOM) Diverticulosis Many [...] unsweetened, w/added ascorbic acid 1 cup 0.5 [place] 1 cup 0.7 Vegetables Cooked Green beans 1 cup 4.0 Carrots 1/2 cup sliced 2.3 Peas 1 cup 8.8 Potato (baked, with skin) 1 medium potato 3.8 Raw [place] (with peel) 1 cucumber 1.5 Lettuce 1 [...] Peanuts 1/[address] [facility] 2013. SEEK IMMEDIATE MEDICAL CARE IF: [...] Information adapted from: ExitCare Patient Information 2009 [employer]. [employer] 2012 [email or web address]/rhpkfjybklhc-gaedfsv-qbsjif-the-basics Follow Up Care 03/31/2022 10:27:32 With:Napoleon MENDEZ Address: [address] [place] [address] Business (1) When: Unknown Comments:office will call for follow up [facility]05-17-2022 Hospital Discharge instructions Patient Education 03/31/2022 09:58:01 [...] including vitamins, herbs, eye drops, creams, and iyob-icr-apgjhba medicines. Any problems you or family members [...] 10/29/2001 Document Revised: 08/24/2018 Document Reviewed: 01/12/2017 [employer] Patient Education [employer]. Follow Up Care 03/23/2022 12:11:50 With:Nereyda Gomez CNP Address: When:1 month [facility] evaluation + Plan note Future Appointments Appointment Date:05/25/2022 08:45:00 AM Scheduled Provider: Location:[facility] Appointment Type:Surgery FT [facility] [employer] + Plan note Future Appointments Appointment Date:06/10/2023 10:40:00 AM Scheduled Provider:Nereyda Gomez CNP Location:[facility] Appointment Type:[facility] Follow Up Future Scheduled Tests Laboratory* Fecal WBC Lactoferrin 04/13/23 * Giardia lamblia, Direct Detection EIA 04/13/23 * O & P Exam, Routine 04/13/23 * Clostridium Difficile PCR 04/13/23 * Enteric Panel by PCR 04/13/23 [facility] evaluation + Plan note Future Appointments Appointment Date:06/10/2023 10:40:00 AM Scheduled Provider:Nereyda Gomez CNP Location:[facility] Appointment Type:[facility] Follow Up Diagnostic Tests Pending * O & P Exam, Routine 04/15/23 * Giardia lamblia, Direct Detection [facility]IA [facility] Future App[facility]ments Appointment Date:09/13/2023 10:40:00 AM Scheduled Provider:Nereyda Gomez CNP Location:[facility] Appointment Type:BAD Follow Up [facility] Evaluation + Plan note Future Appointments Appointment Date:10/14/2023 02:20:00 PM Scheduled Provider:Nereyda Gomez CNP Location:[facility] Appointment Type:BAD Follow Up Future Scheduled Tests Laboratory* CBC w/ Auto Diff 10/01/23 * Comprehensive Metabolic Panel 10/01/23 * Thyroid Stimulating Hormone 10/01/23 [facility] Evaluation + Plan note Future Appointments Appointment Date:12/09/2023 02:00:00 PM Scheduled Provider:Nereyda Gomez CNP Location:[facility] Appointment Type:BAD Follow Up Future Scheduled Tests Laboratory* CBC w/ Auto Diff 10/01/23 * Comprehensive Metabolic Panel 10/01/23 * Thyroid Stimulating Hormone 10/01/23 [facility] Hospital course Narrative No data available for this section [facility] Hospital Discharge instructions No data available for this section [facility] No data available for this section [facility] Summary Purpose Family History No Family History [...] and content) DATE CREATED AUTHOR 02/09/2019 [facility] DATE CREATED AUTHOR AUTHOR'S ORGANIZ ATION 03/28/2023 [facility] DATE CREATED AUTHOR AUTHOR'S ORGANIZ ATION 01/24/2024 Romero Lipscomb [facility] DATE CREATED AUTHOR AUTHOR'S ORGANIZ ATION 06/04/2024 [facility] DATE CREATED AUTHOR AUTHOR'S ORGANIZ ATION 06/16/2024 [facility] Care Team (unrecognized sect ion and content) Personnel Name: Van Sung MD Address: [address] [place] [id number] Personnel Name: Van Sung MD Address: [address] [place], [place] [address], [place] [address] Personnel Name: Van Sung MD Address: Address: [address] [place], [place] [address], [place] [address] [place] Personnel Name: Van Snug MD Address: Address: [address] [place], [place] [address], [place] [address] [place] Personnel Name: Van Sung MD Address: Address: [address] [place], [place] [address], [place] [address] [place] Personnel Name: Van Sung MD Address: Address: [address] [place] [address] [place] [address] [place] Personnel Name: Van Sung MD Address: Address: [address] [place], [place] [address], [place] [address] [place] Personnel Name: Van Sung MD Address: Address: [address] [place], [place] [address], [place] [address] [place] Personnel Name: Van Sung MD Address: Address: [address] [place], [place] [address], [place] [address] Personnel Name: Van Sung MD Address: Address: [address] [place] [id number] [place] FOR RECORDS PERTAINING TO PATIENTS WHO ARE [...] BE BASED ON THE PRIMARY CLINICAL RECORDS. [facility] provides no warranty or guarantee of the accuracy or completeness of information in this document.
[2024-06-19 09:24] LABS: Hemoglobin 15.3 g/dL (14.0-18.0)
[2024-06-19 09:54] LABS: Creatinine Urine Random 53.15 mg/dL (20.00-300.00); Protein Creatinine Ratio Urine 0.15; Total Protein Urine Random 7.8 mg/dL (<=11.9)
[2024-06-19 10:47] LABS: Albumin Level 3.4 g/dL (3.4-5.0); Anion Gap 12.3; BUN Creatinine Ratio 19.8; Calcium 9.2 mg/dL (8.5-10.1); Carbon Dioxide 29.8 mmol/L (21.0-32.0); Chloride 107 mmol/L (98-107); Estimated GFR (African America 49 (>=60); Estimated GFR (Non-African Ame 41 (>=60); Glucose 226 mg/dL (74-106); Magnesium 2.1 mg/dL (1.8-2.4); Phosphorus 3.9 mg/dL (2.6-4.7); Potassium 4.1 mmol/L (3.5-5.1); Sodium 145 mmol/L (136-145)
== END 2024-06-19 08:41 | disposition home or self-care (01) ==
PROVIDERS: PCP Family Medicine; Visit Provider Internal Medicine Nephrology
DX: N18.32 Chronic kidney disease, stage 3b (principal)
CPT/HCPCS: 36415; 80048; 82042; 82306; 82570; 83735; 84100; 84156; 85018

== ENCOUNTER 2024-08-06 10:32 | Emergency (ER) | payer MEDICARE, SELFPAY ==
[2024-08-06 10:42] VITALS: BP 175/98; PULSE 89; TEMP 36.9; O2SAT 96; BMI 25.8
--- OUTSIDE RECORDS SUMMARY | 2024-08-06 10:43 | XMS_ITS | CCD ---
Author Organization [facility] CliniSyga Care Team Providers Care Professional Application Designer Name Role Phone PHYSICIAN, DEFAULT Admitting Unavailable PHYSICIAN, DEFAULT Attending Unavailable VAN SUNG Primary Care Unavailable Van Sung Primary Care Physician HOY ., DR ARAUJO Primary Care Unavailable HOY ., DR ARAUJO Consulting Unavailable HOY ., DR ARAUJO Attending Unavailable HOY ., DR ARAUJO Admitting Unavailable ZIEBER, DR CLOVER Zimmer Consulting Unavailable SAN JUAN, DR CRAMER Consulting Unavailable HOY ., DR ARAUJO Primary Care Unavailable SAN JUAN, DR CRAMER Attending Unavailable SAN JUAN, DR CRAMER Admitting Unavailable SAN JUAN, DR CRAMER Consulting Unavailable HOY ., DR ARAUJO Primary Care Unavailable SAN JUAN, DR CRAMER Attending Unavailable SAN JUAN, DR CRAMER Admitting Unavailable HOY ., DR ARAUJO Consulting Unavailable HOY ., DR ARAUJO Primary Care Unavailable HOY ., DR ARAUJO Attending Unavailable HOY ., DR ARAUJO Admitting Unavailable SAN JUAN, DR CRAMER Consulting Unavailable HOY ., DR ARAUJO Primary Care Unavailable SAN JUAN, DR CRAMER Attending Unavailable SAN JUAN, DR CRAMER Admitting Unavailable HOY ., DR [...] HOY ., DR ARAUJO Primary Care Unavailable NADERERSHERICE Consulting Unavailable HARLEY, MYNOR Consulting Unavailable Yefri Dwyer Consulting Unavailable FRANCISCO ZELAYA Consulting Unavailable PELZLI Consulting Unavailable Patricia, Nereyda A Admitting Unavailable Patricia, Nereyda A Attending Unavailable Patricia, Nereyda A Attending Unavailable Patricia, Nereyda A Attending Unavailable Patricia, Nereyda A Attending Unavailable Patricia, Nereyda A Attending Unavailable Patricia, Nereyda A Attending Unavailable Patricia, Nereyda A Attending Unavailable Patricia, Nereyda A Attending Unavailable NILL, Francisco Zimmer Attending Unavailable HoyVan Referring Unavailable Patricia, Nereyda A Admitting Unavailable Patricia, Nereyda A Attending Unavailable Van Sung Consulting Unavailable MD Van Sung Consulting Unavailable Patricia, Nereyda A Admitting Unavailable Patricia, Nereyda A Attending Unavailable SAN JUAN, RUTHIE Attending Unavailable AMYJEFF Attending Unavailable MOUKARBEL, CLARIBEL Attending Unavailable MOUKARBEL, CLARIBEL Attending Unavailable MOUKARBEL, CLARIBEL Attending Unavailable MOUKARBEL, CLARIBEL Attending Unavailable DANA APARICIO Attending Unavailable MOUKARBEL, CLARIBEL Referring Unavailable ROBINSON CHICAS Attending Unavailable BEBARRIE Mac Attending Unavailable ROBINSON CHICAS Attending Unavailable ROBINSON CHICAS Attending Unavailable ROBINSON CHICAS Attending Unavailable ROBINSON CHICAS Attending Unavailable PARDEEP CHICASS A Attending Unavailable BEJBARRIE Attending Unavailable ROBINSON CHICAS Attending Unavailable Allergies Allergy Classification Reported Allergen(s) Allergy Type Date of Onset Reaction(s) Facility (14 sources) Aminolevulinic Acid; 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: [aminolevulinic acid] Drug Allergy 11-04-20 [address] [facility] Repository (1 source) NITRO PATCH; 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: [NITRO PATCH] Propensity to adverse reactions (disorder) 03-18-[address] [facility] Repository (12 sources) Contrast media; 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: [Contrast Dye] Drug allergy Unknown (qualifier value) [facility] (12 sources) Hmg-Coa Reductase Inhibitors (Statins); 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: [statins] Allergy to substance Unknown [facility] (20 sources) Nitroglycerin; 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: [nitroglycerin] Drug Allergy 02-23-20 Unknown (qualifier value) [facility] (2 sources) black walnut pollen extract; 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: [TDMTUNX-PSV-ZRL REDUCTASE INHIBITORS] Drug Allergy 04-21-20 17 [facility] Repository (1 source) Iodine (And Iodine Containting Drugs) Drug allergy (disorder) 05-28-20 16 [facility] Repository (1 source) Aminolevulinic Acid; 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: [aminolevulinic acid] Drug Allergy 11-04-20 13 [facility] Repository (1 source) Nitroglycerin; 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: [Nitroglycerin Patch] Drug Allergy [facility] Repository (1 source) IODINATED CONTRAST MEDIA; 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: [IODINATED CONTRAST MEDIA] Propensity to adverse reactions to drug (disorder) 07-17-[address] [facility] Repository Medications Current Medications Medication Drug [...] day(s), # 90 cap(s), Refills(s) 0, Pharmacy: [facility]/pharmacy #[id number], 185, cm, 06/10/23 10:45:00 EDT, Height/Length Dosing, 97, kg, 06/10/23 10:45:00 EDT, Weight Dosing Start Date: 06/10/23 Stop Date: 09/08/23 Status: Ordered Start: 08-28-2020 take 1 capsule by [facility] once daily Align 4 mg oral capsule 4 mg = 1 cap(s), Oral, Daily, Take after completing the Antibiotics course, # 28 cap(s), Refills(s) 0, Pharmacy: [facility]/pharmacy #[id number], 185, cm, 08/28/20 12:05:00 EDT, [...] Daily Prior to colonoscopy Per physician's instructions, [facility]/pharmacy #[id number], 185, cm, 03/31/22 9:58:00 EDT, [...] Date: 01/09/19 Status: Ordered 60 actuat tiotropium 0.98858 mg/actuat inhalation spray (10 sources) Anticholinergic Start: [...] water, # 160 cap(s), Refills(s) 1, Pharmacy: [facility]/pharmacy #[id number], 185, cm, 08/28/20 12:05:00 EDT, [...] disease (2 sources) Atherosclerotic heart disease of [place] coronary artery without angina pectoris; 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: [Atherosclerotic heart disease of [place] coronary artery without angina pectoris] Onset: 03-03-2024 Chronic Deficiency and other anemia (1 source) [...] source) jail (current) use of aspirin; 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] Onset: 08-27-2022 Episodic Other aftercare (1 source) jail (current) use of anticoagulants; 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: [GROUP HOME CURRNT USE ANTICOAGULANTS] Onset: 08-27-2022 Episodic Other aftercare (1 source) Other jail (current) drug therapy; 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: [OTH GROUP HOME CURRENT DRUG THERAPY] Onset: 08-27-2022 Episodic Other [...] Value Interpretation Reference Range Facility Office Visiton 07-05-2024 Follow-up visit [id number] Nadir Heredia 1940 M Date Provider Department Center 07/05/2024 Salvador[facility]RUTHIE [facility]DA [facility] NEPHRO Comprehensiv Family History Problem Relation Age of Onset Coronary artery disease Father Family Status - Relation Status Age at Father Level of Service:35717 [place] OFFICE/OUTPATIENT ESTABLISHED MOD MDM 30 MIN Reason for Visit and Comments: Follow-up [229719] [facility] 36on 06-20-2024 36 Regarding echo result from 06/09/2024: MD Stephanie Kelley MA Based on the echo he has extra fluid. He should increase furosemide to 80 mg in am and 40 mg in pm. Follow up with nephrology and me in 6 months with echo. Spoke with patients and made her aware of lasix increase per Dr. Puga. Advised her to call the office when he needs more lasix. I told her he should have another echo at [facility] in Oct 2024, prior to his follow up with Dr. Puga in Nov 2024. She verbalized understanding. Echo order faxed to [facility]. [facility] 06-14-2024 36 Patients called and stating that dr. Linda told her to call and let him know that her husbands blood pressure is better and she would like a call back. [facility] 06-09-2024 36 Spoke with patient's Shanna and made sure she understood to increase labetalol per Dr. Linda. She also understands not to resume hydralazine. [facility] 06-07-2024 36 I'm Stephanie from Dr. Puga's office with Cardiology. Patient's daughter called and wanted to know if Dr. Linda had restarted patient's hydralazine- NOT hydroxyzine. I don't see in the note that it was restarted. Dr. Linda, or someone from his office- can you clarify this for me? Thanks so much. [facility] Follow-Upon 06-07-2024 Follow-Up [id number] Nadir Heredia Joy 1940 M Date Provider Department Center 06/07/2024 Salvador[facility]RUTHIE [facility] NEPHRO Comprehensiv Family History Problem Relation Age of Onset Coronary artery disease Father Family Status - Relation Status Age at Father Level of Service:93025 [place] OFFICE/OUTPATIENT ESTABLISHED MOD MDM 30 MIN () Reason for Visit and Comments: Follow-up [[id number]] [facility] Telephoneon 06-07-2024 Telephone [id number] Nadir Heredia 1940 M Date Provider Department Center 06/07/2024 Francisco-IRIS GUADALUPE [facility] NEPHRO Comprehensiv Family History Problem Relation Age of Onset Coronary artery disease Father Family Status - Relation Status Age at Father [facility] Office Visiton 06-05-2024 Follow-up visit [id number] Nadir Heredia 1940 M Date Provider Department Center 06/05/2024 Parris-CLARIBEL PUGA [facility] Family History Problem Relation Age of Onset Coronary artery disease Father Family Status - Relation Status Age at Father Level of Service:71477 [place] OFFICE/OUTPATIENT ESTABLISHED MOD MDM 30 MIN [facility] 3605-17-2024 36 Faxed lab orders 05/17/24 [facility] 36on 05-15-2024 36 Patient states that he needs his blood work to go to [facility] before his appointment on 05/31/24. [facility] 05-10-2024 36 LM on for patient or his to return my call. [facility] 3605-08-2024 36 Patient's called with concerns of elevated BP since hydralazine was stopped at last apt. She said sometimes it's very good - 110/60's and sometimes 152/70. He's scheduled to see you in a few weeks. Did you want to change anything? Please advise. Thanks. [facility] 3604-04-2024 36 Regarding blood work from 04/03/2024: MD Stephanie Kelley MA Stable renal function. Continue same treatment and follow-up as planned. Patient's made aware. [facility] Orders Onlyon 03-21-2024 Orders Only [id number] Nadir Heredia Joy 1940 M Date Provider Department Center 03/21/2024 LUCRETIA BENZ [facility]KA [facility] Family History Problem Relation Age of Onset Coronary artery disease Father Family Status - Relation Status Age at Father [facility] Office Visiton 03-03-2024 Follow-up visit [id number] Steen 1940 [facility] Provider Department Center 03/03/2024 CLARIBEL VILLALOBOS [facility] Family History Problem Relation Age of Onset Coronary artery disease Father Family Status - Relation Status Age at Father Level of Service:53437 [place] OFFICE/OUTPATIENT ESTABLISHED MOD MDM 30 MIN Reason for Visit and Comments: Follow-up [[id number]] [facility] 36on 12-29-2023 36 Called and spoke with patient and rescheduled patients appointment from 05/31 to 06/07. [facility] 36on 12-28-2023 36 Called patient lvm to contact the office back to reschedule appointment. [facility] Follow-Upon 11-17-2023 Follow-Up [id number] Nadir Heredia 1940 [facility] Provider Department Center 11/17/2023 RUTHIE OWEN [facility] NEPHRO Comprehensiv Family History Problem Relation Age of Onset Coronary artery disease Father Family Status - Relation Status Age at Father Level of Service:69471 [place] OFFICE/OUTPATIENT ESTABLISHED MOD MDM 30 MIN () Reason for Visit and Comments: Follow-up [585645] Chronic Kidney Disease [176] [facility] Lab Reportson 10-21-2023 Lab Reports [id number] #1.00TIFF [facility] Gastroenterology Office/Clin ic Noteon 10-18-2023 Gastroenterology [...] fiber supplem (more content not included)... Normal [facility] Comment on above: Result Comment: Elec [...] PM EST With: Nereyda Gomez CNP Where: [facility] Normal [facility] Patient Educationon 10-14-20 23 Patient Education [...] as fried or sweet foods. These include omani fries, hamburgers, cookies, candies, and soda. ? Drink enough fluid to keep your urine pale yellow. General instructions ? Exercise regularly or as told by your health care provider. Try to do 150 minutes of moderate exercise each week. ? Use the bathroom when you have the urge to go. Do not hold it in. ? Take khsr-ogn-ikqnkzy and prescription medicines only as told by [...] keep your urine pale yellow. ? Take ljqv-ztc-vyqriap and prescription medicines only as told by your health care provider. This includes any fiber supplements. This information is not intended to replace advice given to you by your health care provider. Make sure you discuss any questions you have with your health care provider. Document Revised: 09/18/2020 Document Reviewed: 09/18/2020 [employer] Patient Education ? 2022 Tã Em Bé. Normal [facility] 36on 10-12-2023 36 Patient called to make you aware that he was in [facility] ED on (Wednesday) for SOB. He wanted you to look over his records. I have uploaded them all into his intermediate teacher for your review. His BNP is increased to 4000 and was previously 2600 about 1 month ago. Looks like they gave him extra lasix in the ED and recommended he follow up with Dr. Sung outpatient. Can you please review and let me know if you'd like anything done/ordered? Thanks. Normal [facility] XR Abdomen 2 Viewson 023 XR [...] mGy = . DAP = . Normal [facility] Lab Reportson 10-04-2023 Lab Reports [id number] 1#1.00TIFF Normal [facility] RAD - MISCon 10-04-2023 [facility] [id number] #1.00TIFF Normal [facility] Ambulatory Visit Summaryon 1 12-01-2022 Ambulatory [...] PM EST With: Nereyda Gomez CNP Where: [facility] Invalid Interpretation Code Abdominal cramping [facility] Consent for Treatmenton 09-15 Consent for Treatment [id number] #1.00TIFF Normal [facility] Gastroenterology Office/Clin ic Noteon 10-01-2023 Gastroenterology [...] educated t (more content not included)... [facility] Comment on above: Result Comment: Elec [...] Bulgur wheat. Millet. Quinoa. Bran muffins. Popcorn. Casselberry wafer crackers. Meats and other proteins Chenoa beans, kidney beans, and mendez beans. Soybeans. [...] Cream cheese. Sour cream. Fats and oils [place]. Beverages Soft drinks. Other foods Cakes and [...] provider. Document Revised: (more content not included)... [facility] 36on 09-20-2023 36 Called and spoke with and rescheduled appointment and informed her patient would need to get labs done. [facility] 36 Patients called in to reschedule appointment from 09/08 [facility] Office Visiton 09-17-2023 Follow-up visit [id number] Nadir Heredia 1940 M Date Provider Department Center 09/17/2023 CLARIBEL VILLALOBOS Family History Problem Relation Age of Onset Coronary artery disease Father Family Status - Relation Status Age at Father Level of Service:80685 [place] OFFICE/OUTPATIENT ESTABLISHED MOD MDM 30-39 MIN Reason for Visit and Comments: Follow-up [[id number]] [facility] HPon 08-31-2023 [facility] Cardiology - [facility] Clinic Subjective Nadir Heredia is a [...] extremity edema. He was admitted to the [facility] in August 2022 due to hyponatremia, hyperkalemia and acute kidney injury, leukocytosis secondary to COVID-19 causing dehydration. I saw him on 05/24/2023 and the office and he had significant evidence of volume overload by exam and echocardiogram. I intensified his diuretic regimen. He ended up getting admitted to the [facility] with acute heart failure exacerbation and [...] Allergies Allergen Reactions Iodinated Contrast Media Nitroglycerin Tlzutpo-Ive-Rbm Reductase Inhibitors Medications Current Outpatient Medications: acyclovir [...] Take 1 ta (more content not included)... [facility] NURSNOTEon 08-31-2023 NURSNOTE Pt performed and passed bedside swallow study. RN educated pt on d/c instructions. RN encouraged pt to voice any questions or concerns. Pt verbalizes no questions or concerns at this time. Pt was wheeled off of unit with all of belongings. [facility] Telephoneon 08-24-2023 Telephone [id number] Nadir Heredia 1940 M Date Provider Department Center 08/24/2023 RABIA KONG [facility] VASC LAB RI HeartVAS Family History Problem Relation Age of Onset Coronary artery disease Father Family Status - Relation Status Age at Father [facility] Office Visiton 07-21-2023 Follow-up visit [id number] Nadir Heredia 1940 M Date Provider Department Center 07/21/2023 CLARIBEL VILLALOBOS [facility]KA [facility] Family History Problem Relation Age of Onset Coronary artery disease Father Family Status - Relation Status Age at Father Level of Service:28979 [place] OFFICE/OUTPATIENT ESTABLISHED MOD MDM 30-39 MIN Reason for Visit and Comments: Follow-up [794866] [facility] Ambulatory Visit Summaryon 0 06-10-2023 Ambulatory Visit [...] AM EDT With: Nereyda Gomez CNP Where: [facility] Normal [facility] Gastroenterology Office/Clin ic Noteon 06-10-2023 Gastroenterology Office/Clinic Note HPI Staff Nadir is an 83 y.o. male here for 2 month follow up He continues with intermittent diarrhea. He states he's been able to hold stool until reaches bathroom. He states he has terrible gas recently hospitalized at [facility] for heart failure He continues with metoclopramide [...] day(s), # 90 cap(s), Refills(s) 0, Pharmacy: [facility]/pharmacy #6 (more content not included)... [facility] Comment on above: Result Comment: Elec [...] liquor (44 mL). General instructions ? Take cmlq-rne-qezpvrg and prescription medicines only as told by [...] 02/19/2021 D (more content not included)... [facility] Giardia, Direct, EIAon 04-22 G. lamblia Ag IA Ql (Stl) Negative Invalid Interpretation Code Negative [facility] Comment on above: Result Comment: Perf ormed at: [address] [id number] PhD Huan Vyas Performed By: #### 3 [id number], [id number], [id number], [id number], [id number], [id number] ####[facility] [address] [place] [address] O & P EXAM, ROUTINE, REFLEXo n 04-22-2023 Ova and parasites identified Concentration Nom (Stl) Comment Invalid Interpretation Code [facility] Comment on above: Result Comment: No o va, cysts, or parasites seen. One negative specimen does not rule out the possibility of a parasitic infection. Performed at: [address] [id number] PhD Huan Vyas Performed By: #### 3 [id number], [id number], [id number], [id number], [id number], [id number] ####[facility] [address] [place] [address] O & P Exam, Routineon 2022 Ova and parasites identified LM Nom (Unsp spec) Final report Invalid Interpretation Code [facility] Comment on above: Result Comment: Thes e results were obtained using wet preparation(s) and trichrome stained smear. This test does not include testing for Cryptosporidium parvum, Cyclospora, or Microsporidia. Performed at: [address] [id number] PhD Huan Vyas Performed By: #### 3 [id number], [id number], [id number], [id number], [id number], [id number] ####[address] [place] [address] CDiff PCRon 04-15-2023 CDiff PCR Unable to perform test due to consistency of stool. C. Difficile testing will only be performed on diarrheal (unformed) stool unless ileus due to C. difficile is expected. Reference: Clinical Practice Guidelines for Clostridium difficile Infection in Adults, Infection and Hospital Epidemiology March 2010, Vol 31, No 5. [facility] Cdiff Specimen Acceptable Unacceptable [facility] Comment on above: Performed By: #### 3 [id number], [id number], [id number], [id number], [id number], [id number] ####[facility] [address] [place] [address] Order Cancelled YES Normal [facility] Comment on above: Performed By: #### 3 [id number], [id number], [id number], [id number], [id number], [id number] ####[facility] [address] [place] [address] Enteric Panel by PCRon 04-15 C. coli+jejuni+upsaliens is DNA SULTANA+non-probe Ql (Stl) Not detected Normal [facility] Comment on above: Result Comment: Test ing was performed utilizing reverse pm technician (RT), polymerase chain reaction (PCR), and [...] nulcleic acid test. Performed By: #### 3 8597840, [id number], [id number], [id number], [id number], [id number] ####[facility] [address] [place] [address] E. coli stx1+stx2 genes SULTANA+non-probe Ql (Stl) Negative Normal [facility] Comment on above: Performed By: #### 3 [id number], [id number], [id number], 79722327, [id number], [id number] ####[facility] [address] [place] [address] Enteric Panel by PCR Negative Normal [facility] Enteric Panel Intrl QC Pass Normal [facility] Comment on above: Result Comment: Test ing was performed utilizing reverse pm technician (RT), polymerase chain reaction (PCR), and [...] 1 and 2. Performed By: #### 3 [id number], 13348545, [id number], 27109288, [id number], [id number] ####[facility] [address] [place] [address] Norovirus genogroup I+II RNA SULTANA+non-probe Ql (Stl) Not detected Normal [facility] Comment on above: Performed By: #### 3 0585157, 07444669, [id number], 01138800, [id number], 46326511 ####[facility] [address] [place] [address] Rotavirus A RNA SULTANA+non-probe Ql (Stl) Not detected Normal [facility] Comment on above: Performed By: #### 3 8766519, 00707518, [id number], 43191580, [id number], [id number] ####[facility] [address] [place] [address] S. enterica+bongori DNA SULTANA+non-probe Ql (Stl) Not detected Normal [facility] Comment on above: Result Comment: This test result should be correlated with clinical presentations and medical history by a healthcare provider to determine its clinical significance. Performed By: #### 3 3016457, 60406127, [id number], 70029764, [id number], 66054090 ####[facility] [address] [place] [address] Shigella species+EIEC invasion plasmid antigen H ipaH gene SULTANA+non-probe Ql (Stl) Not detected Normal [facility] Comment on above: Performed By: #### 3 [id number], 71942659, [id number], 27647108, [id number], [id number] ####[facility] [address] [place] [address] V. cholerae+parahaemolyt icus+vulnificus DNA SULTANA+non-probe Ql (Stl) Not detected Normal [facility] Comment on above: Performed By: #### 3 [id number], 96019291, [id number], 32764443, [id number], [id number] ####[facility] [address] [place] [address] Y. enterocolitica DNA SULTANA+non-probe Ql (Stl) Not detected Normal [facility] Comment on above: Performed By: #### 3 0164365, 04580308, [id number], 73492952, [id number], [id number] ####[facility] [address] [place] [address] Fecal WBC Lactoferrinon 06-0 Fecal WBC Lactoferrin Negative Normal Negative [facility] Comment on above: Result Comment: The semi-quantitative detection of elevated levels of fecal lactoferrin is a marker for fecal leukocytes and an indication of intestinal inflammation. Performed By: #### 3 2046986, 55725755, [id number], 05701333, [id number], [id number] ####[facility] [address] [place] [address] MICRO OTHER TESTSOrdered By: Francisco Bolanos on 04-15-2023 Fecal WBC Lactoferrin Negative (04/15/23 7:00 AM) Normal Negative [facility] Ambulatory Visit Summaryon 0 04-13-2023 [...] AM EDT With: Nereyda Gomez CNP Where: [facility] [facility] 04-13-2023 Basophils/100 WBC (Bld) 0.9 % Normal 0.0-2.0 [facility] Comment on above: Order Comment: Order Added by Discern Expert. Performed By: #### 1 [id number], 7756085, 0706002, [id number] ####[address] [place] [address] Basophils/Leukocytes Auto (Bld) [Pure # fraction] 0.1 E9/L Normal 0.0-0.2 [facility] Comment on above: Order Comment: Order Added by Discern Expert. Performed By: #### 1 [id number], 1928554, 6649730, 3819248 ####[address] [place] [address] Eosinophils/100 WBC (Bld) 5.1 % Normal 0.0-8.0 [facility] Comment on above: Order Comment: Order Added by Ayanna Expert. Performed By: #### 1 [id number], 5296569, 2571764, 5493396 ####[address] [address] Eosinophils/Leukocyte s Auto (Bld) [Pure # fraction] 0.3 E9/L Normal 0.0-0.5 [facility] Comment on above: Order Comment: Order Added by Ayanna Expert. Performed By: #### 1 [id number], 5000990, 7931602, 1389405 ####[address] [address] Lymphocytes/100 WBC (Bld) 13.6 % Low 14.0-50.0 [facility] Comment on above: Order Comment: Order Added by Discern Expert. Performed By: #### 1 [id number], 8934606, 5595002, 9982891 ####[address] [place] [address] Lymphocytes/Leukocyte s Auto (Bld) [Pure # fraction] 0.9 E9/L Low 1.0-4.0 [facility] Comment on above: Order Comment: Order Added by Ayanna Expert. Performed By: #### 1 [id number], 8295508, 8231985, 4778001 ####[address] [place] [address] Monocytes/100 WBC (Bld) 11.9 % Normal 4.0-14.0 [facility] Comment on above: Order Comment: Order Added by Discern Expert. Performed By: #### 1 [id number], 3740399, 3796464, 6422788 ####[address] [address] Monocytes/Leukocytes Auto (Bld) [Pure # fraction] 0.8 E9/L Normal 0.2-1.0 [facility] Comment on above: Order Comment: Order Added by Discern Expert. Performed By: #### 1 [id number], 5148902, 4993834, 5640762 ####[address] [address] Neutrophils/100 WBC (Bld) 68.5 % Normal 36.0-75.0 [facility] Comment on above: Order Comment: Order Added by Discern Expert. Performed By: #### 1 1904605, 8119886, 5915138, 9011960 ####[address] [address] Neutrophils/Leukocyte s Auto (Bld) [Pure # fraction] 4.6 E9/L Normal 2.0-7.5 [facility] Comment on above: Order Comment: Order Added by Discern Expert. Performed By: #### 1 0921532, 1386526, 9836030, 0859592 ####[address] [address] CBC w/ Auto Diffon 3 Erythrocyte distribution width (RBC) [Ratio] 14.7 % High 10.9-14.2 [facility] Comment on above: Performed By: #### 1 3805081, 0285859, 6345262, 8209145 ####[address] [address] Hematocrit (Bld) [Volume fraction] 40.3 % Normal 37.7-49.0 [facility] Comment on above: Performed By: #### 1 1724556, 2275033, 2783855, 0598098 ####[facility] [address] [place] [address] Hemoglobin (Bld) [Mass/Vol] 13.7 g/dL Normal 13.5-17.5 [facility] Comment on above: Performed By: #### 1 3664648, 4966265, 0637510, 1122941 ####[address] [address] MCH (RBC) [Entitic mass] 33.9 pg Normal 27.0-34.0 [facility] Comment on above: Performed By: #### 1 8022439, 7651055, 1433693, 4430302 ####[address] [address] MCHC (RBC) [Mass/Vol] 34.0 g/dL Normal 31.4-36.0 [facility] Comment on above: Performed By: #### 1 2843808, 8971573, 8269367, 0428014 ####[address] [address] MCV (RBC) [Entitic vol] 99.8 fL Normal 80.0-100.0 [facility] Comment on above: Performed By: #### 1 5236395, 7016490, 9129862, 7344627 ####[address] [address] Platelet mean volume (Bld) [Entitic vol] 9.8 fL Normal 6.4-10.8 [facility] Comment on above: Performed By: #### 1 1145929, 0343225, 2384509, 8017896 ####[address] [place] [address] Platelets (Bld) [#/Vol] 161.0 E9/L Normal 150.0-500.0 [facility] Comment on above: Performed By: #### 1 9812774, 3374033, 2560394, 1905506 ####[address] [address] RBC (Bld) [#/Vol] 4.0 E12/L Low 4.3-5.9 [facility] Comment on above: Performed By: #### 1 6919197, 0835527, 1695591, 0123863 ####[facility] [address] [place] [address] WBC corrected for nucl RBC Auto (Bld) [#/Vol] 6.7 E9/L Normal 4.0-11.0 [facility] Comment on above: Performed By: #### 1 1257128, 4646199, 2453893, 5377725 ####[facility] [address] [place] [address] CHEMISTRYOrdered By: SYSTEM SYSTEM on 04-13-2023 Albumin [...] 37 mL/min/1.73 m2 Low >=59mL/min/1. 73 m2 [facility] [place] S Globulin (S) [Mass/Vol] 2.8 g/dL Normal 1.4 - 4.0 gm/dL [facility] Glucose [Mass/Vol] 111 mg/dL Normal 55 - 199 mg/dL [facility] Potassium [Moles/Vol] 4.1 mmol/L Normal 3.5 - 5.3 mmol/L [facility] Protein [Mass/Vol] 6.6 g/dL Normal 6.0 - 7.8 gm/dL [facility] Sodium [Moles/Vol] 141 mmol/L Normal 135 - 145 mmol/L [facility] Urea nitrogen [Mass/Vol] 24 mg/dL High 5 - 21 mg/dL [facility] Urea nitrogen/Creatinine [Mass ratio] 13 mg/mg Normal 10 - 20 [facility]isol CMPon 04-13-2023 Albumin [Mass/Vol] 3.8 g/dL Normal 3.3-5.0 [facility] Comment on above: Performed By: #### 1 [id number], 2806270, 7199981, 6057802 ####[facility] [address] [place] [address] Albumin/Globulin (S) [Mass conc ratio] 1.4 Normal 1.1-2.2 [facility] Comment on above: Performed By: #### 1 9811255, 1338990, 7878477, 6139079 ####[facility] [address] [place] [address] ALP [Catalytic activity/Vol] 61 Int._Unit/L Normal 21-98 [facility] Comment on above: Performed By: #### 1 8564261, 2218859, 7259405, 8434087 ####[facility] [address] [place] [address] ALT No additional P-5'-P [Catalytic activity/Vol] 16 Int._Unit/L Normal 6-46 [facility] Comment on above: Performed By: #### 1 6969765, 6224100, 3999831, 9370373 ####[facility] [address] [place] [address] Anion gap [Moles/Vol] 13 mmol/L Normal 6-16 [facility] Comment on above: Performed By: #### 1 [id number], 3399261, 1304068, 6753989 ####[facility] [address] [place] [address] AST [Catalytic activity/Vol] 18 Int._Unit/L Normal 5-43 [facility] Comment on above: Performed By: #### 1 8948079, 4312275, 5655480, 0526565 ####[facility] [address] [place] [address] Bilirubin [Mass/Vol] 0.5 mg/dL Normal 0.0-1.1 [facility] Comment on above: Performed By: #### 1 9072050, 1973645, 6580327, 9088066 ####[facility] [address] [place] [address] Calcium [Mass/Vol] 8.8 mg/dL Low 8.9-11.1 [facility] Comment on above: Performed By: #### 1 7666580, 7592322, 5722796, 5799914 ####[facility] [address] [facility] [place] [address] Chloride [Moles/Vol] 104 mmol/L Normal 101-111 [facility] Comment on above: Performed By: #### 1 6811798, 8734964, 2418955, 2819673 ####[facility] [address] [place] [address] CO2 [Moles/Vol] 28 mmol/L Normal 21-31 [facility] Comment on above: Performed By: #### 1 8577160, 8820678, 7770826, 6855219 ####[facility] [address] [place] [address] Creatinine [Mass/Vol] 1.8 mg/dL High 0.5-1.3 [facility] Comment on above: Performed By: #### 1 4269736, 8893374, 8250845, 3327572 ####[facility] [address] [place] [address] Globulin (S) [Mass/Vol] 2.8 g/dL Normal 1.4-4.0 [facility] Comment on above: Performed By: #### 1 5966207, 6543427, 5256687, 3481961 ####[facility] [address] [place] [address] Glucose [Mass/Vol] 111 mg/dL Normal 55-199 [facility] Comment on above: Result Comment: If t his glucose result represents a fasting glucose, interpretation should refer to the following reference range: 55-99 mg/dL Performed By: #### 1 5510918, 1962983, 0034707, 9579129 ####[facility] [address] [place] [address] Potassium [Moles/Vol] 4.1 mmol/L Normal 3.5-5.3 [facility] Comment on above: Performed By: #### 1 9527335, 5568569, 0802868, 0604777 ####[facility] [address] [place] [address] Protein [Mass/Vol] 6.6 g/dL Normal 6.0-7.8 [facility] Comment on above: Performed By: #### 1 0156056, 8411315, 0801006, 1281186 ####[facility] [address] [place] [address] Sodium [Moles/Vol] 141 mmol/L Normal 135-145 [facility] Comment on above: Performed By: #### 1 3023065, 7696153, 4726163, 9852187 ####[facility] [address] [place] [address] Urea nitrogen [Mass/Vol] 24 mg/dL High 5-21 [facility] Comment on above: Performed By: #### 1 6650503, 1055783, 8438383, 8172758 ####[facility] [address] [place] [address] Urea nitrogen/Creatinine [Mass ratio] 13 No Units Normal 10-20 [facility] Comment on above: Performed By: #### 1 2385482, 3338535, 6830232, 1255855 ####[facility] [address] [place] [address] Consent for Treatmenton 03-17 Consent for Treatment [id number] 30 [id number] #1.00CD:127 Normal [facility] Gastroenterology Office/Clin ic Noteon 04-13-2023 Gastroenterology [...] 4 mg= (more content not included)... Normal [facility] Comment on above: Result Comment: Elec [...] - 7.5 E9/L [facility] HemeAutoSS HEMATOLOGYOrdered By: Gauir Scott on 04-13-2023 Erythrocyte distribution width (RBC) [...] Normal 4.0 - 11.0 E9/L [facility] HemeAutoSS eGFRon 04-13-2023 GFR/1.73 sq M.predicted among non-blacks MDRD (S/P/Bld) [Vol rate/Area] 37 mL/min/1.73 m2 Low >=59 [facility] Comment on above: Order Comment: Order added by Discern Expert. Result Comment: [address] kidney disease could be indicated at eGFR's of less than 60 mL/min/1.73m2. Kidney failure is indicated at less than 15 mL/min/1.73m2. Performed By: #### 1 3124797, 9912074, 6633928, 8709054 ####[facility] [id number] ALBUMINon 03-24-2023 Albumin [Mass/Vol] 3.3 g/dL Critically low 3.4-5.0 [facility] Comment on above: Performed By: #### M ERICK Faith, PHOS #### [facility] [address] [place] [address] Dr. David Magana GLYCOHEMOGLOBIN A1Con 2022 ADA RECOMMENDATION SEE BELOW Normal [facility] Comment on above: Result Comment: ADA RECOMMENDED LIMIT 4.0 - 6.0 ADA THERAPEUTIC TARGET < 7.0 ACTION SUGGESTED > 7.0 Performed By: #### A 1C #### [facility] [address] [place] [address] Dr. David Magana Glucose [Mass/Vol] 108 mg/dL Normal [facility] Comment on above: Performed By: #### A 1C #### [facility] [address] [place] [address] Dr. David Magana HbA1c (Bld) [Mass fraction] 5.4 % Normal 4.5-6.2 [facility] Comment on above: Performed By: #### A 1C #### [facility] [address] [place] [address] Dr. David Magana PHOSPHORUSon 03-24-2023 Phosphate [Mass/Vol] 3.6 mg/dL Normal 2.6-4.7 [facility] Comment on above: Performed By: #### M ERICK Faith, PHOS #### [facility] [address] [place] [address] Dr. David Magana PROF CHEM 8 (BAS METB)on Anion gap [Moles/Vol] 11.6 mmol/L Normal [facility] Comment on above: Performed By: #### M ERICK Faith, PHOS #### [facility] [address] [place] [address] Dr. David Magana Calcium [Mass/Vol] 8.9 mg/dL Normal 8.5-10.1 [facility] Comment on above: Performed By: #### M ERICK Faith, PHOS #### [facility] [address] [place] [address] Dr. David Magana Chloride [Moles/Vol] 107 mmol/L Normal 98-107 [facility] Comment on above: Performed By: #### M ERICK Faith, PHOS #### [facility] [address] [place] [address] Dr. David Magana CO2 [Moles/Vol] 30.8 mmol/L Normal 21.0-32.0 [facility] Comment on above: Performed By: #### M ERICK Faith, PHOS #### [facility] [address] [place] [address] Dr. David Magana Creatinine [Mass/Vol] 1.67 mg/dL Critically high 0.70-1.30 [facility] Comment on above: Performed By: #### ERICK Jacques, PHOS #### [facility] [address] [place] [address] Dr. David Magana EGFR-AF [facility] 48 mL/min/1.73m2 Critically low >=60 [facility] Comment on above: Performed By: #### ERICK Jacques, PHOS #### [facility] [address] [place] [address] Dr. David Magana EGFR-NON AF [facility] 39 mL/min/1.73m2 Critically low >=60 [facility] Comment on above: Performed By: #### ERICK Jacques, PHOS #### [facility] [address] [place] [address] Dr. David Magana Glucose [Mass/Vol] 128 mg/dL Critically high 74-106 [facility] Comment on above: Performed By: #### ERICK Jacques, PHOS #### [facility] [address] [place] [address] Dr. David Magana Potassium [Moles/Vol] 4.4 mmol/L Normal 3.5-5.1 [facility] Comment on above: Performed By: #### ERICK Jacques, PHOS #### [facility] [address] [place] [address] Dr. David Magana Sodium [Moles/Vol] 145 mmol/L Normal 136-145 [facility] Comment on above: Performed By: #### ERICK Jacques, PHOS #### [facility] [address] [place] [address] Dr. David Magana Urea nitrogen [Mass/Vol] 25.0 mg/dL Critically high 7.0-18.0 [facility] Comment on above: Performed By: #### ERICK Jacques, PHOS #### [facility] [address] [place] [address] Dr. David Magana Urea nitrogen/Creatinine [Mass ratio] 15.0 mg/mg Normal [facility] Comment on above: Performed By: #### ERICK Jacques, PHOS #### [facility] [address] [place] [address] Dr. David Magana VITAMIN D 25 OHon 03-24-2023 VIT D 25-OH 11.6 ng/mL Normal [facility] Comment on above: Performed By: #### C BC #### [facility] [address] [place] [address] Dr. David Magana VIT D RANGES SEE BELOW Normal [facility] Comment on above: Result Comment: <20 ng/mL Vit D deficient 20 - <30 ng/mL Vit D insufficient 30 - 100 ng/mL Vit D sufficient >100 ng/mL Potential Toxicity Performed By: #### C BC #### [facility] [address] [place] [address] Dr. David Magana Physician Referralon 023 Physician Referral [id number] #[id number]:127 Normal [facility] CBC AUTO DIFFon 02-27-2023 BASO # 0.0 103/ul Normal 0.0-0.1 [facility] Comment on above: Performed By: #### ERICK Jacques, PHOS #### [facility] [address] [place] [address] Dr. David Magana Basophils/100 WBC (Bld) 0.5 % Normal 0.2-2.0 [facility] Comment on above: Performed By: #### ERICK Jacques, PHOS #### [facility] [address] [place] [address] Dr. David Magana EO # 0.7 103/ul Normal 0.0-0.7 [facility] Comment on above: Performed By: #### ERICK Jacques, PHOS #### [facility] [address] [place] [address] Dr. David Magana Eosinophils/100 WBC (Bld) 9.3 % Critically high 0.9-7.0 [facility] Comment on above: Performed By: #### ERICK Jacques, PHOS #### [facility] [address] [place] [address] Dr. David Magana Erythrocyte distribution width (RBC) [Ratio] 14.6 % Normal 11.0-15.0 [facility] Comment on above: Performed By: #### ERICK Jacques, PHOS #### [facility] [address] [place] [address] Dr. David Magana Hematocrit (Bld) [Volume fraction] 41.5 % Critically low 42.0-54.0 [facility] Comment on above: Performed By: #### ERICK Jacques, PHOS #### [facility] [address] [place] [address] Dr. David Magana Hemoglobin (Bld) [Mass/Vol] 13.9 g/dL Critically low 14.0-18.0 [facility] Comment on above: Performed By: #### ERICK Jacques, PHOS #### [facility] [address] [place] [address] Dr. David Magana IG # 0.02 10e3/ul Normal 0.00-0.03 [facility] Comment on above: Performed By: #### ERICK Jacques, PHOS #### [facility] [address] [place] [address] Dr. David Magana IG % 0.3 % Normal 0.0-0.5 [facility] Comment on above: Performed By: #### M G, BMP, PHOS #### [facility] [address] [address] [address] David Magana LYMPH # 1.0 103/ul Critically low 1.2-3.8 [facility] Comment on above: Performed By: #### M G, BMP, PHOS #### [facility] [address] [place] [address] Dr. David Magana Lymphocytes/100 WBC (Bld) 13.0 % Critically low 20.5-60.0 [facility] Comment on above: Performed By: #### M G, BMP, PHOS #### [facility] [address] [place] [address] Dr. David Magana MANUAL DIFF REQ NO Normal [facility] Comment on above: Performed By: #### M G, BMP, PHOS #### [facility] [address] [place] [address] Dr. David Magana MCH (RBC) [Entitic mass] 33.5 pg Normal 25.9-34.0 [facility] Comment on above: Performed By: #### M G, BMP, PHOS #### [facility] [address] [place] [address] Dr. David Magana MCHC (RBC) [Mass/Vol] 33.5 g/dL Normal 29.9-35.2 [facility] Comment on above: Performed By: #### M G, BMP, PHOS #### [facility] [address] [place] [address] Dr. David Magana MCV (RBC) [Entitic vol] 100.0 fL Critically high 80.0-94.0 [facility] Comment on above: Performed By: #### M G, BMP, PHOS #### [facility] [address] [place] [address] Dr. David Magana MONO # 0.8 103/ul Normal 0.3-0.8 [facility] Comment on above: Performed By: #### M G, BMP, PHOS #### [facility] [address] [place] [address] Dr. David Magana Monocytes/100 WBC (Bld) 10.1 % Normal 1.7-12.0 [facility] Comment on above: Performed By: #### ERICK Jacques, PHOS #### [facility] [address] [place] [address] Dr. David aMgana NEUT # 5.0 103/ul Normal 1.4-6.5 [facility] Comment on above: Performed By: #### ERICK Jacques, PHOS #### [facility] [address] [place] [address] Dr. David Magana Neutrophils/100 WBC (Bld) 66.8 % Normal 43.0-75.0 [facility] Comment on above: Performed By: #### ERICK Jacques, PHOS #### [facility] [address] [place] [address] Dr. David Magana Platelet mean volume (Bld) [Entitic vol] 11.2 fL Normal 9.5-13.5 [facility] Comment on above: Performed By: #### ERICK Jacques, PHOS #### [facility] [address] [place] [address] Dr. David Magana PLT 187 103/ul Normal 150-450 [facility] Comment on above: Performed By: #### ERICK Jacques, PHOS #### [facility] [address] [place] [address] Dr. David Magana RBC 4.15 106/ul Critically low 4.70-6.10 [facility] Comment on above: Performed By: #### ERICK Jacques, PHOS #### [facility] [address] [place] [address] Dr. David Magana WBC 7.5 103/ul Normal 4.0-11.0 [facility] Comment on above: Performed By: #### ERICK Jacques, PHOS #### [facility] [address] [place] [address] Dr. David Magana PROF 14(COMP METB)on 023 Albumin [Mass/Vol] 3.5 g/dL Normal 3.4-5.0 [facility] Comment on above: Performed By: #### A 1C #### [facility] [address] [place] [address] Dr. David Magana Albumin/Globulin [Mass ratio] 1.1 {ratio} Normal [facility] Comment on above: Performed By: #### A 1C #### [facility] [address] [place] [address] Dr. David Magana ALP [Catalytic activity/Vol] 76 U/L Normal 46-116 [facility] Comment on above: Performed By: #### A 1C #### [facility] [address] [place] [address] Dr. David Magana ALT [Catalytic activity/Vol] 23 U/L Normal 16-63 [facility] Comment on above: Performed By: #### A 1C #### [facility] [address] [place] [address] Dr. David Magana Anion gap [Moles/Vol] 13.1 mmol/L Normal [facility] Comment on above: Performed By: #### A 1C #### [facility] [address] [place] [address] Dr. David Magana AST [Catalytic activity/Vol] 17 U/L Normal 15-37 [facility] Comment on above: Performed By: #### A 1C #### [facility] [address] [place] [address] Dr. David Magana Bilirubin [Mass/Vol] 0.7 mg/dL Normal 0.2-1.0 [facility] Comment on above: Performed By: #### A 1C #### [facility] [address] [place] [address] Dr. David Magana Calcium [Mass/Vol] 9.0 mg/dL Normal 8.5-10.1 [facility] Comment on above: Performed By: #### A 1C #### [facility] [address] [place] [address] Dr. David Magana Chloride [Moles/Vol] 105 mmol/L Normal 98-107 [facility] Comment on above: Performed By: #### A 1C #### [facility] [address] [place] [address] Dr. David Magana CO2 [Moles/Vol] 29.0 mmol/L Normal 21.0-32.0 [facility] Comment on above: Performed By: #### A 1C #### [facility] [address] [address] [address] David Magana Creatinine [Mass/Vol] 1.77 mg/dL Critically high 0.70-1.30 [facility] Comment on above: Performed By: #### A 1C #### [facility] [address] [address] [address] David Magana EGFR-AF [facility] 45 mL/min/1.73m2 Critically low >=60 [facility] Comment on above: Performed By: #### A 1C #### [facility] [address] [place] [address] Dr. David Magana EGFR-NON AF [facility] 37 mL/min/1.73m2 Critically low >=60 [facility] Comment on above: Performed By: #### A 1C #### [facility] [address] [address] [address] David Magana Globulin (S) [Mass/Vol] 3.3 g/dL Normal [facility] Comment on above: Performed By: #### A 1C #### [facility] [address] [place] [address] Dr. David Magana Glucose [Mass/Vol] 135 mg/dL Critically high 74-[address] [facility] Comment on above: Performed By: #### A 1C #### [facility] [address] [address] [address] David Magana Potassium [Moles/Vol] 4.1 mmol/L Normal 3.5-5.1 [facility] Comment on above: Performed By: #### A 1C #### [facility] [address] [place] [address] Dr. David Magana Protein [Mass/Vol] 6.8 g/dL Normal 6.4-8.2 [facility] Comment on above: Performed By: #### A 1C #### [facility] [address] [place] [address] Dr. David Magana Sodium [Moles/Vol] 143 mmol/L Normal 136-145 [facility] Comment on above: Performed By: #### A 1C #### [facility] [address] [place] [address] Dr. David Magana Urea nitrogen [Mass/Vol] 31.0 mg/dL Critically high 7.0-18.0 [facility] Comment on above: Performed By: #### A 1C #### [facility] [address] [place] [address] Dr. David Magana Urea nitrogen/Creatinine [Mass ratio] 17.5 mg/mg Normal [facility] Comment on above: Performed By: #### A 1C #### [facility] [address] [place] [address] Dr. David Magana PROTIMEon 02-27-2023 INR Coag (PPP) [Relative time] 0.99 {INR} Normal [facility] Comment on above: Performed By: #### A 1C #### [facility] [address] [place] [address] Dr. David Magana INR GUIDELINES SEE BELOW Normal [facility] Comment on above: Result Comment: IDANIA RED INR: 2.0 - 3.0 CONDITIONS NOT LISTED BELOW 2.5 - 3.5 FOR PROSTHETIC HEART VALVE REPLACEMENT 2.5 - 3.5 RECURRENT THROMBOSIS Performed By: #### A 1C #### [facility] [address] [place] [address] Dr. David Magana PT Coag (PPP) [Time] 10.5 s Normal 9.0-11.6 [facility] Comment on above: Performed By: #### A 1C #### [facility] [address] [place] [address] Dr. David Magana PTTon 02-27-2023 aPTT Coag (Bld) [Time] 33.0 s Normal 22.3-36.2 [facility] Comment on above: Performed By: #### P OCGLUC #### [facility] [address] [place] [address] Dr. David Magana ALBUMINon 12-28-2022 Albumin [Mass/Vol] 3.6 g/dL Normal 3.4-5.0 [facility] Comment on above: Performed By: #### C BC #### [facility] [address] [address] [address] David Magana GLYCOHEMOGLOBIN A1Con 2022 ADA RECOMMENDATION SEE BELOW Normal [facility] Comment on above: Result Comment: ADA RECOMMENDED LIMIT 4.0 - 6.0 ADA THERAPEUTIC TARGET < 7.0 ACTION SUGGESTED > 7.0 Performed By: #### P OCGLUC #### [facility] [address] [place] [address] Dr. David Magana Glucose [Mass/Vol] 140 mg/dL Normal [facility] Comment on above: Performed By: #### P OCGLUC #### [facility] [address] [place] [address] Dr. David Magana HbA1c (Bld) [Mass fraction] 6.5 % Critically high 4.5-6.2 [facility] Comment on above: Performed By: #### P OCGLUC #### [facility] [address] [place] [address] Dr. David Magana MAGNESIUMon 12-28-2022 Magnesium [Mass/Vol] 2.3 mg/dL Normal 1.8-2.4 [facility] Comment on above: Performed By: #### P OCGLUC #### [facility] [address] [place] [address] Dr. David Magana PROF CHEM 8 (BAS METB)on Anion gap [Moles/Vol] 13.2 mmol/L Normal [facility] Comment on above: Performed By: #### P OCGLUC #### [facility] [address] [place] [address] Dr. David Magana Calcium [Mass/Vol] 9.0 mg/dL Normal 8.5-10.1 [facility] Comment on above: Performed By: #### P OCGLUC #### [facility] [address] [place] [address] Dr. David Magana Chloride [Moles/Vol] 105 mmol/L Normal 98-107 [facility] Comment on above: Performed By: #### P OCGLUC #### [facility] [address] [address] [address] David Magana CO2 [Moles/Vol] 28.9 mmol/L Normal 21.0-32.0 [facility] Comment on above: Performed By: #### P OCGLUC #### [facility] [address] [address] [address] David Magana Creatinine [Mass/Vol] 1.66 mg/dL Critically high 0.70-1.30 [facility] Comment on above: Performed By: #### P OCGLUC #### [facility] [address] [address] [address] David Magana EGFR-AF [facility] 48 mL/min/1.73m2 Critically low >=60 [facility] Comment on above: Performed By: #### P OCGLUC #### [facility] [address] [address] [address] David Magana EGFR-NON AF [facility] 40 mL/min/1.73m2 Critically low >=60 [facility] Comment on above: Performed By: #### P OCGLUC #### [facility] [address] [address] [address] David Magana Glucose [Mass/Vol] 123 mg/dL Critically high 74-106 [facility] Comment on above: Performed By: #### P OCGLUC #### [facility] [address] [address] [address] David Magana Potassium [Moles/Vol] 4.1 mmol/L Normal 3.5-5.1 [facility] Comment on above: Performed By: #### P OCGLUC #### [facility] [address] [address] [address] David Magana Sodium [Moles/Vol] 143 mmol/L Normal 136-145 [facility] Comment on above: Performed By: #### P OCGLUC #### [facility] [address] [address] [address] David Magana Urea nitrogen [Mass/Vol] 29.0 mg/dL Critically high 7.0-18.0 [facility] Comment on above: Performed By: #### P OCGLUC #### [facility] [address] [place] [address] Dr. David Magana Urea nitrogen/Creatinine [Mass ratio] 17.5 mg/mg Normal [facility] Comment on above: Performed By: #### P OCGLUC #### [facility] [address] [place] [address] Dr. David Magana URINE T PROTEIN CREAT RATIOo n 12-28-2022 UR TOTAL PROTEIN <6.0 Normal <=12.0 [facility] Comment on above: Performed By: #### M ERICK Faith, PHOS #### [facility] [address] [place] [address] Dr. David Magana URINE CREAT 41.21 mg/dL Normal 20.00-300.00 [facility] Comment on above: Performed By: #### ERICK Jacques, PHOS #### [facility] [address] [place] [address] Dr. David Magana ALBUMINon 11-16-2022 Albumin [Mass/Vol] 3.3 g/dL Critically low 3.4-5.0 [facility] Comment on above: Performed By: #### C BC #### [facility] [address] [place] [address] Dr. David Magana CREATININE URINEon 3 URINE CREAT 19.69 mg/dL Critically low 20.00-300.00 [facility] Comment on above: Performed By: #### M ERICK Faith, PHOS #### [facility] [address] [place] [address] Dr. David Magana HEMOGLOBINon 11-16-2022 Hemoglobin (Bld) [Mass/Vol] 14.9 g/dL Normal 14.0-18.0 [facility] Comment on above: Performed By: #### ERICK Jacques, PHOS #### [facility] [address] [place] [address] Dr. David Magana MAGNESIUMon 11-16-2022 Magnesium [Mass/Vol] 2.2 mg/dL Normal 1.8-2.4 [facility] Comment on above: Performed By: #### C BC #### [facility] [address] [address] [address] David Magana PHOSPHORUSon 11-16-2022 Phosphate [Mass/Vol] 3.9 mg/dL Normal 2.6-4.7 [facility] Comment on above: Performed By: #### C BC #### [facility] [address] [place] [address] Dr. David Magana PROF CHEM 8 (BAS METB)on Anion gap [Moles/Vol] 11.9 mmol/L Normal [facility] Comment on above: Performed By: #### C BC #### [facility] [address] [place] [address] Dr. David Magana Calcium [Mass/Vol] 8.8 mg/dL Normal 8.5-10.1 [facility] Comment on above: Performed By: #### C BC #### [facility] [address] [place] [address] Dr. David Magana Chloride [Moles/Vol] 104 mmol/L Normal 98-107 [facility] Comment on above: Performed By: #### C BC #### [facility] [address] [place] [address] Dr. David Magana CO2 [Moles/Vol] 27.4 mmol/L Normal 21.0-32.0 [facility] Comment on above: Performed By: #### C BC #### [facility] [address] [place] [address] Dr. David Magana Creatinine [Mass/Vol] 1.68 mg/dL Critically high 0.70-1.30 [facility] Comment on above: Performed By: #### C BC #### [facility] [address] [place] [address] Dr. David Magana EGFR-AF [facility] 48 mL/min/1.73m2 Critically low >=60 [facility] Comment on above: Performed By: #### C BC #### [facility] [address] [place] [address] Dr. David Magana EGFR-NON AF [facility] 39 mL/min/1.73m2 Critically low >=60 [facility] Comment on above: Performed By: #### C BC #### [facility] [address] [address] [address] David Magana Glucose [Mass/Vol] 212 mg/dL Critically high 74-[address] [facility] Comment on above: Performed By: #### C BC #### [facility] [address] [address] [address] David Magana Potassium [Moles/Vol] 4.3 mmol/L Normal 3.5-5.1 [facility] Comment on above: Performed By: #### C BC #### [facility] [address] [address] [address] David Magana Sodium [Moles/Vol] 139 mmol/L Normal 136-145 [facility] Comment on above: Performed By: #### C BC #### [facility] [address] [address] [address] David Magana Urea nitrogen [Mass/Vol] 25.0 mg/dL Critically high 7.0-18.0 [facility] Comment on above: Performed By: #### C BC #### [facility] [address] [place] [address] Dr. David Magana Urea nitrogen/Creatinine [Mass ratio] 14.9 mg/mg Normal [facility] Comment on above: Performed By: #### C BC #### [facility] [address] [place] [address] Dr. David Magana PROTEIN RAND URINEon 023 UR PROT <5.0 Normal <=11.9 [facility] Comment on above: Performed By: #### M G, BMP, PHOS #### [facility] [address] [place] [address] Dr. David Magana US CHANI DOP LEG [...] CLOVER PEREZ Date: 2022-11-02 16:21 Normal [facility] BNPon 07-22-2022 Natriuretic peptide B (Bld) [Mass/Vol] 2143.0 pg/mL Critically high <=1,800.0 [facility] Comment on above: Performed By: #### M G, BMP, PHOS #### [facility] [address] [place] [address] Dr. David Magana CBC AUTO DIFFon 07-22-2022 BASO # 0.0 103/ul Normal 0.0-0.1 [facility] Comment on above: Performed By: #### A 1C #### [facility] [address] [place] [address] Dr. David Magana Basophils/100 WBC (Bld) 0.3 % Normal 0.2-2.0 [facility] Comment on above: Performed By: #### A 1C #### [facility] [address] [place] [address] Dr. David Magana EO # 0.3 103/ul Normal 0.0-0.7 [facility] Comment on above: Performed By: #### A 1C #### [facility] [address] [place] [address] Dr. David Magana Eosinophils/100 WBC (Bld) 2.4 % Normal 0.9-7.0 [facility] Comment on above: Performed By: #### A 1C #### [facility] [address] [place] [address] Dr. David Magana Erythrocyte distribution width (RBC) [Ratio] 13.4 % Normal 11.0-15.0 [facility] Comment on above: Performed By: #### A 1C #### [facility] [address] [place] [address] Dr. David Magana Hematocrit (Bld) [Volume fraction] 42.7 % Normal 42.0-54.0 [facility] Comment on above: Performed By: #### A 1C #### [facility] [address] [place] [address] Dr. David Magana Hemoglobin (Bld) [Mass/Vol] 14.2 g/dL Normal 14.0-18.0 [facility] Comment on above: Performed By: #### A 1C #### [facility] [address] [place] [address] Dr. David Magana IG # 0.18 10e3/ul Critically high 0.00-0.03 [facility] Comment on above: Performed By: #### A 1C #### [facility] [address] [place] [address] Dr. David Magana IG % 1.6 % Critically high 0.0-0.5 [facility] Comment on above: Performed By: #### A 1C #### [facility] [address] [place] [address] Dr. David Magana LYMPH # 0.9 103/ul Critically low 1.2-3.8 [facility] Comment on above: Performed By: #### A 1C #### [facility] [address] [place] [address] Dr. David Magana Lymphocytes/100 WBC (Bld) 8.1 % Critically low 20.5-60.0 [facility] Comment on above: Performed By: #### A 1C #### [facility] [address] [place] [address] Dr. David Magana MANUAL DIFF REQ NO Normal [facility] Comment on above: Performed By: #### A 1C #### [facility] [address] [place] [address] Dr. David Magana MCH (RBC) [Entitic mass] 33.3 pg Normal 25.9-34.0 [facility] Comment on above: Performed By: #### A 1C #### [facility] [address] [place] [address] Dr. David Magana MCHC (RBC) [Mass/Vol] 33.3 g/dL Normal 29.9-35.2 [facility] Comment on above: Performed By: #### A 1C #### [facility] [address] [address] [address] David Magana MCV (RBC) [Entitic vol] 100.2 fL Critically high 80.0-94.0 [facility] Comment on above: Performed By: #### A 1C #### [facility] [address] [address] [address] David Magana MONO # 1.2 103/ul Critically high 0.3-0.8 [facility] Comment on above: Performed By: #### A 1C #### [facility] [address] [address] [address] David Magana Monocytes/100 WBC (Bld) 10.5 % Normal 1.7-12.0 [facility] Comment on above: Performed By: #### A 1C #### [facility] [address] [address] [address] David Magana NEUT # 8.9 103/ul Critically high 1.4-6.5 [facility] Comment on above: Performed By: #### A 1C #### [facility] [address] [address] [address] David Magana Neutrophils/100 WBC (Bld) 77.1 % Critically high 43.0-75.0 [facility] Comment on above: Performed By: #### A 1C #### [facility] [address] [place] [address] Dr. David Magana Platelet mean volume (Bld) [Entitic vol] 11.3 fL Normal 9.5-13.5 [facility] Comment on above: Performed By: #### A 1C #### [facility] [address] [address] [address] David Magana PLT 175 103/ul Normal 150-450 [facility] Comment on above: Performed By: #### A 1C #### [facility] [address] [address] [address] David Magana RBC 4.26 106/ul Critically low 4.70-6.10 [facility] Comment on above: Performed By: #### A 1C #### [facility] [address] [address] [address] David Magana WBC 11.5 103/ul Critically high 4.0-11.0 [facility] Comment on above: Performed By: #### A 1C #### [facility] [address] [address] [address] David Magana PROF 14(COMP METB)on 022 Albumin [Mass/Vol] 2.6 g/dL Critically low 3.4-5.0 [facility] Comment on above: Performed By: #### M G, BMP, PHOS #### [facility] [address] [address] [address] David Magana Albumin/Globulin [Mass ratio] 0.9 {ratio} Normal [facility] Comment on above: Performed By: #### M G, BMP, PHOS #### [facility] [address] [address] [address] David Magana ALP [Catalytic activity/Vol] 49 U/L Normal 46-116 [facility] Comment on above: Performed By: #### M G, BMP, PHOS #### [facility] [address] [address] [address] David Magana ALT [Catalytic activity/Vol] 25 U/L Normal 16-63 [facility] Comment on above: Performed By: #### M G, BMP, PHOS #### [facility] [address] [address] [address] David Magana Anion gap [Moles/Vol] 12.8 mmol/L Normal [facility] Comment on above: Performed By: #### M G, BMP, PHOS #### [facility] [address] [address] [address] David Magana AST [Catalytic activity/Vol] 9 U/L Critically low 15-37 [facility] Comment on above: Performed By: #### M G, BMP, PHOS #### [facility] [address] [address] [address] David Magana Bilirubin [Mass/Vol] 0.5 mg/dL Normal 0.2-1.0 [facility] Comment on above: Performed By: #### M G, BMP, PHOS #### [facility] [address] [address] [address] David Magana Calcium [Mass/Vol] 8.3 mg/dL Critically low 8.5-10.1 [facility] e [facility] Comment on above: Performed By: #### M G, BMP, PHOS #### [facility] [address] [place] [address] Dr. David Magana Chloride [Moles/Vol] 105 mmol/L Normal 98-107 [facility] Comment on above: Performed By: #### M G, BMP, PHOS #### [facility] [address] [place] [address] Dr. David Magana CO2 [Moles/Vol] 24.2 mmol/L Normal 21.0-32.0 [facility] Comment on above: Performed By: #### M G, BMP, PHOS #### [facility] [address] [place] [address] Dr. David Magana Creatinine [Mass/Vol] 1.28 mg/dL Normal 0.70-1.30 [facility] Comment on above: Performed By: #### M G, BMP, PHOS #### [facility] [address] [place] [address] Dr. David Magana EGFR-AF [facility] >60 Normal >=60 [facility] Comment on above: Performed By: #### M G, BMP, PHOS #### [facility] [address] [place] [address] Dr. David Magana EGFR-NON AF [facility] 54 mL/min/1.73m2 Critically low >=60 [facility] Comment on above: Performed By: #### M G, BMP, PHOS #### [facility] [address] [place] [address] Dr. David Magana Globulin (S) [Mass/Vol] 2.9 g/dL Normal [facility] Comment on above: Performed By: #### M G, BMP, PHOS #### [facility] [address] [place] [address] Dr. David Magana Glucose [Mass/Vol] 205 mg/dL Critically high 74-[address] [facility] Comment on above: Performed By: #### M ERICK Faith, PHOS #### [facility] [address] [place] [address] Dr. David Magana Potassium [Moles/Vol] 4.0 mmol/L Normal 3.5-5.1 [facility] Comment on above: Performed By: #### ERICK Jacques, PHOS #### [facility] [address] [place] [address] Dr. David Magana Protein [Mass/Vol] 5.5 g/dL Critically low 6.4-8.2 [facility] Comment on above: Performed By: #### M ERICK Faith, PHOS #### [facility] [address] [place] [address] Dr. David Magana Sodium [Moles/Vol] 138 mmol/L Normal 136-145 [facility] Comment on above: Performed By: #### ERICK Jacques, PHOS #### [facility] [address] [place] [address] Dr. David Magana Urea nitrogen [Mass/Vol] 36.0 mg/dL Critically high 7.0-18.0 [facility] Comment on above: Performed By: #### ERICK Jacques, PHOS #### [facility] [address] [place] [address] Dr. David Magana Urea nitrogen/Creatinine [Mass ratio] 28.1 mg/mg Normal [facility] Comment on above: Performed By: #### M ERICK Faith, PHOS #### [facility] [address] [place] [address] Dr. David Magana BNPon 07-21-2022 Natriuretic peptide B (Bld) [Mass/Vol] 3485.0 pg/mL Critically high <=1,800.0 [facility] Comment on above: Result Comment: repe ated Performed By: #### A 1C #### [facility] [address] [place] [address] Dr. David Magana CBC AUTO DIFFon 07-21-2022 BASO # 0.0 103/ul Normal 0.0-0.1 [facility] Comment on above: Performed By: #### C BC #### [facility] [address] [place] [address] Dr. David Magana Basophils/100 WBC (Bld) 0.3 % Normal 0.2-2.0 [facility] Comment on above: Performed By: #### C BC #### [facility] [address] [place] [address] Dr. David Magana EO # 0.2 103/ul Normal 0.0-0.7 [facility] Comment on above: Performed By: #### C BC #### [facility] [address] [place] [address] Dr. David Magana Eosinophils/100 WBC (Bld) 1.9 % Normal 0.9-7.0 [facility] Comment on above: Performed By: #### C BC #### [facility] [address] [place] [address] Dr. David Magana Erythrocyte distribution width (RBC) [Ratio] 13.4 % Normal 11.0-15.0 [facility] Comment on above: Performed By: #### C BC #### [facility] [address] [place] [address] Dr. David Magana Hematocrit (Bld) [Volume fraction] 42.5 % Normal 42.0-54.0 [facility] Comment on above: Performed By: #### C BC #### [facility] [address] [place] [address] Dr. David Magana Hemoglobin (Bld) [Mass/Vol] 14.2 g/dL Normal 14.0-18.0 [facility] Comment on above: Performed By: #### C BC #### [facility] [address] [place] [address] Dr. David Magana IG # 0.22 10e3/ul Critically high 0.00-0.03 [facility] Comment on above: Performed By: #### C BC #### [facility] [address] [place] [address] Dr. David Magana IG % 2.1 % Critically high 0.0-0.5 [facility] Comment on above: Performed By: #### C BC #### [facility] [address] [place] [address] Dr. David Magana LYMPH # 0.8 103/ul Critically low 1.2-3.8 [facility] Comment on above: Performed By: #### C BC #### [facility] [address] [place] [address] Dr. David Magana Lymphocytes/100 WBC (Bld) 7.7 % Critically low 20.5-60.0 [facility] Comment on above: Performed By: #### C BC #### [facility] [address] [place] [address] Dr. David Magana MANUAL DIFF REQ NO Normal [facility] Comment on above: Performed By: #### C BC #### [facility] [address] [place] [address] Dr. David Magana MCH (RBC) [Entitic mass] 33.0 pg Normal 25.9-34.0 [facility] Comment on above: Performed By: #### C BC #### [facility] [address] [place] [address] Dr. David Magana MCHC (RBC) [Mass/Vol] 33.4 g/dL Normal 29.9-35.2 [facility] Comment on above: Performed By: #### C BC #### [facility] [address] [place] [address] Dr. David Magana MCV (RBC) [Entitic vol] 98.8 fL Critically high 80.0-94.0 [facility] Comment on above: Performed By: #### C BC #### [facility] [address] [place] [address] Dr. David Magana MONO # 1.0 103/ul Critically high 0.3-0.8 [facility] Comment on above: Performed By: #### C BC #### [facility] [address] [place] [address] Dr. David Magana Monocytes/100 WBC (Bld) 9.7 % Normal 1.7-12.0 [facility] Comment on above: Performed By: #### C BC #### [facility] [address] [place] [address] Dr. David Magana NEUT # 8.1 103/ul Critically high 1.4-6.5 [facility] Comment on above: Performed By: #### C BC #### [facility] [address] [place] [address] Dr. David Magana Neutrophils/100 WBC (Bld) 78.3 % Critically high 43.0-75.0 [facility] Comment on above: Performed By: #### C BC #### [facility] [address] [place] [address] Dr. David Magana Platelet mean volume (Bld) [Entitic vol] 10.7 fL Normal 9.5-13.5 [facility] Comment on above: Performed By: #### C BC #### [facility] [address] [place] [address] Dr. David Magana PLT 177 103/ul Normal 150-450 [facility] Comment on above: Performed By: #### C BC #### [facility] [address] [place] [address] Dr. David Magana RBC 4.30 106/ul Critically low 4.70-6.10 [facility] Comment on above: Performed By: #### C BC #### [facility] [address] [place] [address] Dr. David Magana WBC 10.4 103/ul Normal 4.0-11.0 [facility] Comment on above: Performed By: #### C BC #### [facility] [address] [place] [address] Dr. David Magana PROF 14(COMP METB)on 022 Albumin [Mass/Vol] 2.6 g/dL Critically low 3.4-5.0 [facility] Comment on above: Performed By: #### A 1C #### [facility] [address] [place] [address] Dr. David Magana Albumin/Globulin [Mass ratio] 1.0 {ratio} Normal [facility] Comment on above: Performed By: #### A 1C #### [facility] [address] [address] [address] David Magana ALP [Catalytic activity/Vol] 50 U/L Normal 46-116 [facility] Comment on above: Performed By: #### A 1C #### [facility] [address] [address] [address] David Magana ALT [Catalytic activity/Vol] 28 U/L Normal 16-63 [facility] Comment on above: Performed By: #### A 1C #### [facility] [address] [address] [address] David Magana Anion gap [Moles/Vol] 11.4 mmol/L Normal [facility] Comment on above: Performed By: #### A 1C #### [facility] [address] [place] [address] Dr. David Magana AST [Catalytic activity/Vol] 13 U/L Critically low 15-37 [facility] Comment on above: Performed By: #### A 1C #### [facility] [address] [address] [address] David Magana Bilirubin [Mass/Vol] 0.4 mg/dL Normal 0.2-1.0 [facility] Comment on above: Performed By: #### A 1C #### [facility] [address] [address] [address] David Magana Calcium [Mass/Vol] 8.4 mg/dL Critically low 8.5-10.1 [facility] Comment on above: Performed By: #### A 1C #### [facility] [address] [address] [address] David Magana Chloride [Moles/Vol] 107 mmol/L Normal 98-107 [facility] Comment on above: Performed By: #### A 1C #### [facility] [address] [address] [address] David Magana CO2 [Moles/Vol] 24.6 mmol/L Normal 21.0-32.0 [facility] Comment on above: Performed By: #### A 1C #### [facility] [address] [address] [address] David Magana Creatinine [Mass/Vol] 1.26 mg/dL Normal 0.70-1.30 [facility] Comment on above: Performed By: #### A 1C #### [facility] [address] [address] [address] David Magana EGFR-AF [facility] >60 Normal >=60 [facility] Comment on above: Performed By: #### A 1C #### [facility] [address] [address] [address] David Magana EGFR-NON AF [facility] 55 mL/min/1.73m2 Critically low >=60 [facility] Comment on above: Performed By: #### A 1C #### [facility] [address] [address] [address] David Magana Globulin (S) [Mass/Vol] 2.7 g/dL Normal [facility] Comment on above: Performed By: #### A 1C #### [facility] [address] [address] [address] David Magana Glucose [Mass/Vol] 203 mg/dL Critically high 74-106 [facility] Comment on above: Performed By: #### A 1C #### [facility] [address] [address] [address] David Magana Potassium [Moles/Vol] 4.0 mmol/L Normal 3.5-5.1 [facility] Comment on above: Performed By: #### A 1C #### [facility] [address] [address] [address] David Magana Protein [Mass/Vol] 5.3 g/dL Critically low 6.4-8.2 [facility] Comment on above: Performed By: #### A 1C #### [facility] [address] [address] [address] David Magana Sodium [Moles/Vol] 139 mmol/L Normal 136-145 [facility] Comment on above: Performed By: #### A 1C #### [facility] [address] [place] [address] Dr. David Magana Urea nitrogen [Mass/Vol] 33.0 mg/dL Critically high 7.0-18.0 [facility] Comment on above: Performed By: #### A 1C #### [facility] [address] [place] [address] Dr. David Magana Urea nitrogen/Creatinine [Mass ratio] 26.2 mg/mg Normal [facility] Comment on above: Performed By: #### A 1C #### [facility] [address] [place] [address] Dr. David Magana BNPon 07-20-2022 Natriuretic peptide B (Bld) [Mass/Vol] 7478.0 pg/mL Critically high <=1,800.0 [facility] Comment on above: Performed By: #### A 1C #### [facility] [address] [place] [address] Dr. David Magana CBC AUTO DIFFon 07-20-2022 BASO # 0.1 103/ul Normal 0.0-0.1 [facility] Comment on above: Performed By: #### M G BMP, PHOS #### [facility] [address] [place] [address] Dr. David Magana Basophils/100 WBC (Bld) 0.8 % Normal 0.2-2.0 [facility] Comment on above: Performed By: #### M G BMP, PHOS #### [facility] [address] [place] [address] Dr. David Magana EO # 0.1 103/ul Normal 0.0-0.7 [facility] Comment on above: Performed By: #### M G, BMP, PHOS #### [facility] [address] [place] [address] Dr. David Magana Eosinophils/100 WBC (Bld) 0.6 % Critically low 0.9-7.0 [facility] Comment on above: Performed By: #### M G, BMP, PHOS #### [facility] [address] [place] [address] Dr. David Magana Erythrocyte distribution width (RBC) [Ratio] 13.4 % Normal 11.0-15.0 [facility] Comment on above: Performed By: #### M ERICK Faith, PHOS #### [facility] [address] [place] [address] Dr. David Magana Hematocrit (Bld) [Volume fraction] 43.2 % Normal 42.0-54.0 [facility] Comment on above: Performed By: #### ERICK Jacques, PHOS #### [facility] [address] [place] [address] Dr. David Magana Hemoglobin (Bld) [Mass/Vol] 14.2 g/dL Normal 14.0-18.0 [facility] Comment on above: Performed By: #### ERICK Jacques, PHOS #### [facility] [address] [place] [address] Dr. David Magana IG # 0.21 10e3/ul Critically high 0.00-0.03 [facility] Comment on above: Performed By: #### ERICK Jacques, PHOS #### [facility] [address] [place] [address] Dr. David Magana IG % 2.0 % Critically high 0.0-0.5 [facility] Comment on above: Performed By: #### ERICK Jacques, PHOS #### [facility] [address] [place] [address] Dr. David Magana LYMPH # 0.8 103/ul Critically low 1.2-3.8 [facility] Comment on above: Performed By: #### ERICK Jacques, PHOS #### [facility] [address] [place] [address] Dr. David Magana Lymphocytes/100 WBC (Bld) 7.7 % Critically low 20.5-60.0 [facility] Comment on above: Performed By: #### ERICK Jacques, PHOS #### [facility] [address] [place] [address] Dr. David Magana MANUAL DIFF REQ NO Normal [facility] Comment on above: Performed By: #### M ERICK Faith, PHOS #### [facility] [address] [place] [address] Dr. David Magana MCH (RBC) [Entitic mass] 33.2 pg Normal 25.9-34.0 [facility] Comment on above: Performed By: #### M G, BMP, PHOS #### [facility] [address] [place] [address] Dr. David Magana MCHC (RBC) [Mass/Vol] 32.9 g/dL Normal 29.9-35.2 [facility] Comment on above: Performed By: #### M G, BMP, PHOS #### [facility] [address] [place] [address] Dr. David Magana MCV (RBC) [Entitic vol] 100.9 fL Critically high 80.0-94.0 [facility] Comment on above: Performed By: #### M G, BMP, PHOS #### [facility] [address] [place] [address] Dr. David Magana MONO # 1.0 103/ul Critically high 0.3-0.8 [facility] Comment on above: Performed By: #### M G, BMP, PHOS #### [facility] [address] [place] [address] Dr. David Magana Monocytes/100 WBC (Bld) 10.0 % Normal 1.7-12.0 [facility] Comment on above: Performed By: #### M G, BMP, PHOS #### [facility] [address] [place] [address] Dr. David Magana NEUT # 8.1 103/ul Critically high 1.4-6.5 [facility] Comment on above: Performed By: #### M G, BMP, PHOS #### [facility] [address] [place] [address] Dr. David Magana Neutrophils/100 WBC (Bld) 78.9 % Critically high 43.0-75.0 [facility] Comment on above: Performed By: #### M G, BMP, PHOS #### [facility] [address] [place] [address] Dr. David Magana Platelet mean volume (Bld) [Entitic vol] 10.8 fL Normal 9.5-13.5 [facility] Comment on above: Performed By: #### ERICK Jacques, PHOS #### [facility] [address] [address] [address] David Magana PLT 172 103/ul Normal 150-450 [facility] Comment on above: Performed By: #### ERICK Jacques, PHOS #### [facility] [address] [address] [address] David Magana RBC 4.28 106/ul Critically low 4.70-6.10 [facility] Comment on above: Performed By: #### ERICK Jacques, PHOS #### [facility] [address] [place] [address] Dr. David Magana WBC 10.3 103/ul Normal 4.0-11.0 [facility] Comment on above: Performed By: #### ERICK Jacques, PHOS #### [facility] [address] [place] [address] Dr. David Magana CULTURE URINEon 07-20-2022 CULTURE [...] Trimethoprim/Sulfame thoxazole >=320 R F Normal [facility] Comment on above: Performed By: #### ERICK Jacques, PHOS #### [facility] [address] [place] [address] Dr. David Magana PROF 14(COMP METB)on 022 Albumin [Mass/Vol] 2.6 g/dL Critically low 3.4-5.0 [facility] Comment on above: Performed By: #### A 1C #### [facility] [address] [place] [address] Dr. David Magana Albumin/Globulin [Mass ratio] 0.9 {ratio} Normal [facility] Comment on above: Performed By: #### A 1C #### [facility] [address] [place] [address] Dr. David Magana ALP [Catalytic activity/Vol] 48 U/L Normal 46-116 [facility] Comment on above: Performed By: #### A 1C #### [facility] [address] [place] [address] Dr. David Magana ALT [Catalytic activity/Vol] 27 U/L Normal 16-63 [facility] Comment on above: Performed By: #### A 1C #### [facility] [address] [place] [address] Dr. David Magana Anion gap [Moles/Vol] 13.4 mmol/L Normal [facility] Comment on above: Performed By: #### A 1C #### [facility] [address] [place] [address] Dr. David Magana AST [Catalytic activity/Vol] 22 U/L Normal 15-37 [facility] Comment on above: Performed By: #### A 1C #### [facility] [address] [place] [address] Dr. David Magana Bilirubin [Mass/Vol] 0.5 mg/dL Normal 0.2-1.0 [facility] Comment on above: Performed By: #### A 1C #### [facility] [address] [place] [address] Dr. David Magana Calcium [Mass/Vol] 8.3 mg/dL Critically low 8.5-10.1 [facility] Comment on above: Performed By: #### A 1C #### [facility] [address] [place] [address] Dr. David Magana Chloride [Moles/Vol] 105 mmol/L Normal 98-107 [facility] Comment on above: Performed By: #### A 1C #### [facility] [address] [address] [address] David Magana CO2 [Moles/Vol] 21.0 mmol/L Normal 21.0-32.0 [facility] Comment on above: Performed By: #### A 1C #### [facility] [address] [address] [address] David Magana Creatinine [Mass/Vol] 1.38 mg/dL Critically high 0.70-1.30 [facility] Comment on above: Performed By: #### A 1C #### [facility] [address] [address] [address] David Magana EGFR-AF [facility] 60 mL/min/1.73m2 Normal >=60 [facility] Comment on above: Performed By: #### A 1C #### [facility] [address] [place] [address] Dr. David Magana EGFR-NON AF [facility] 49 mL/min/1.73m2 Critically low >=60 [facility] Comment on above: Performed By: #### A 1C #### [facility] [address] [address] [address] David Magana Globulin (S) [Mass/Vol] 2.8 g/dL Normal [facility] Comment on above: Performed By: #### A 1C #### [facility] [address] [address] [address] David Magana Glucose [Mass/Vol] 156 mg/dL Critically high 74-106 [facility] Comment on above: Performed By: #### A 1C #### [facility] [address] [address] [address] David Magana Potassium [Moles/Vol] 4.4 mmol/L Normal 3.5-5.1 [facility] Comment on above: Performed By: #### A 1C #### [facility] [address] [place] [address] Dr. David Magana Protein [Mass/Vol] 5.4 g/dL Critically low 6.4-8.2 [facility] Comment on above: Performed By: #### A 1C #### [facility] [address] [place] [address] Dr. David Magana Sodium [Moles/Vol] 135 mmol/L Critically low 136-145 [facility] Comment on above: Performed By: #### A 1C #### [facility] [address] [place] [address] Dr. David Magana Urea nitrogen [Mass/Vol] 40.0 mg/dL Critically high 7.0-18.0 [facility] Comment on above: Performed By: #### A 1C #### [facility] [address] [place] [address] Dr. David Magana Urea nitrogen/Creatinine [Mass ratio] 29.0 mg/mg Normal [facility] Comment on above: Performed By: #### A 1C #### [facility] [address] [place] [address] Dr. David Magana BNPon 07-19-2022 Natriuretic peptide B (Bld) [Mass/Vol] 62060.0 pg/mL Critically high <=1,800.0 [facility] Comment on above: Performed By: #### C VDTBH #### [facility] [address] [place] [address] Dr. David Magana CBC AUTO DIFFon 07-19-2022 BASO # 0.0 103/ul Normal 0.0-0.1 [facility] Comment on above: Performed By: #### C BC #### [facility] [address] [place] [address] Dr. David Magana Basophils/100 WBC (Bld) 0.3 % Normal 0.2-2.0 [facility] Comment on above: Performed By: #### C BC #### [facility] [address] [place] [address] Dr. David Magana EO # 0.0 103/ul Normal 0.0-0.7 [facility] Comment on above: Performed By: #### C BC #### [facility] [address] [place] [address] Dr. David Magana Eosinophils/100 WBC (Bld) 0.2 % Critically low 0.9-7.0 [facility] Comment on above: Performed By: #### C BC #### [facility] [address] [address] [address] David Magana Erythrocyte distribution width (RBC) [Ratio] 13.4 % Normal 11.0-15.0 [facility] Comment on above: Performed By: #### C BC #### [facility] [address] [place] [address] Dr. David Magana Hematocrit (Bld) [Volume fraction] 43.4 % Normal 42.0-54.0 [facility] Comment on above: Performed By: #### C BC #### [facility] [address] [place] [address] Dr. David Magana Hemoglobin (Bld) [Mass/Vol] 14.6 g/dL Normal 14.0-18.0 [facility] Comment on above: Performed By: #### C BC #### [facility] [address] [place] [address] Dr. David Magana IG # 0.18 10e3/ul Critically high 0.00-0.03 [facility] Comment on above: Performed By: #### C BC #### [facility] [address] [place] [address] Dr. David Magana IG % 1.5 % Critically high 0.0-0.5 [facility] Comment on above: Performed By: #### C BC #### [facility] [address] [place] [address] Dr. David Magana LYMPH # 0.8 103/ul Critically low 1.2-3.8 [facility] Comment on above: Performed By: #### C BC #### [facility] [address] [place] [address] Dr. David Magana Lymphocytes/100 WBC (Bld) 6.6 % Critically low 20.5-60.0 [facility] Comment on above: Performed By: #### C BC #### [facility] [address] [place] [address] Dr. David Magana MANUAL DIFF REQ NO Normal [facility] Comment on above: Performed By: #### C BC #### [facility] [address] [address] [address] David Magana MCH (RBC) [Entitic mass] 33.7 pg Normal 25.9-34.0 [facility] Comment on above: Performed By: #### C BC #### [facility] [address] [address] [address] David Magana MCHC (RBC) [Mass/Vol] 33.6 g/dL Normal 29.9-35.2 [facility] Comment on above: Performed By: #### C BC #### [facility] [address] [address] [address] David Magana MCV (RBC) [Entitic vol] 100.2 fL Critically high 80.0-94.0 [facility] Comment on above: Performed By: #### C BC #### [facility] [address] [place] [address] Dr. David Magana MONO # 1.1 103/ul Critically high 0.3-0.8 [facility] Comment on above: Performed By: #### C BC #### [facility] [address] [place] [address] Dr. David Magana Monocytes/100 WBC (Bld) 9.3 % Normal 1.7-12.0 [facility] Comment on above: Performed By: #### C BC #### [facility] [address] [place] [address] Dr. aDvid Magana NEUT # 9.6 103/ul Critically high 1.4-6.5 [facility] Comment on above: Performed By: #### C BC #### [facility] [address] [place] [address] Dr. David Magana Neutrophils/100 WBC (Bld) 82.1 % Critically high 43.0-75.0 [facility] Comment on above: Performed By: #### C BC #### [facility] [address] [place] [address] Dr. David Magana Platelet mean volume (Bld) [Entitic vol] 10.8 fL Normal 9.5-13.5 [facility] Comment on above: Performed By: #### C BC #### [facility] [address] [place] [address] Dr. David Magana PLT 202 103/ul Normal 150-450 [facility] Comment on above: Performed By: #### C BC #### [facility] [address] [place] [address] Dr. David Magana RBC 4.33 106/ul Critically low 4.70-6.10 [facility] Comment on above: Performed By: #### C BC #### [facility] [address] [place] [address] Dr. David Magana WBC 11.7 103/ul Critically high 4.0-11.0 [facility] Comment on above: Performed By: #### C BC #### [facility] [address] [place] [address] Dr. David Magana PROF 14(COMP METB)on 022 Albumin [Mass/Vol] 3.4 g/dL Normal 3.4-5.0 [facility] Comment on above: Performed By: #### A 1C #### [facility] [address] [place] [address] Dr. David Magana Albumin/Globulin [Mass ratio] 1.1 {ratio} Normal [facility] Comment on above: Performed By: #### A 1C #### [facility] [address] [place] [address] Dr. David Magana ALP [Catalytic activity/Vol] 63 U/L Normal 46-116 [facility] Comment on above: Performed By: #### A 1C #### [facility] [address] [place] [address] Dr. David Magana ALT [Catalytic activity/Vol] 34 U/L Normal 16-63 [facility] Comment on above: Performed By: #### A 1C #### [facility] [address] [place] [address] Dr. David Magana Anion gap [Moles/Vol] 20.9 mmol/L Normal [facility] Comment on above: Performed By: #### A 1C #### [facility] [address] [address] [address] David Magana AST [Catalytic activity/Vol] 18 U/L Normal 15-37 [facility] Comment on above: Performed By: #### A 1C #### [facility] [address] [address] [address] David Magana Bilirubin [Mass/Vol] 0.5 mg/dL Normal 0.2-1.0 [facility] Comment on above: Performed By: #### A 1C #### [facility] [address] [address] [address] David Magana Calcium [Mass/Vol] 8.5 mg/dL Normal 8.5-10.1 [facility] Comment on above: Performed By: #### A 1C #### [facility] [address] [address] [address] David Magana Chloride [Moles/Vol] 99 mmol/L Normal 98-107 [facility] Comment on above: Performed By: #### A 1C #### [facility] [address] [address] [address] David Magana CO2 [Moles/Vol] 19.1 mmol/L Critically low 21.0-32.0 [facility] Comment on above: Performed By: #### A 1C #### [facility] [address] [address] [address] David Magana Creatinine [Mass/Vol] 1.80 mg/dL Critically high 0.70-1.30 [facility] Comment on above: Performed By: #### A 1C #### [facility] [address] [address] [address] David Magana EGFR-AF [facility] 44 mL/min/1.73m2 Critically low >=60 [facility] Comment on above: Performed By: #### A 1C #### [facility] [address] [address] [address] David Magana EGFR-NON AF [facility] 36 mL/min/1.73m2 Critically low >=60 [facility] Comment on above: Performed By: #### A 1C #### [facility] [address] [address] [address] David Magana Globulin (S) [Mass/Vol] 3.2 g/dL Normal [facility] Comment on above: Performed By: #### A 1C #### [facility] [address] [address] [address] David Magana Glucose [Mass/Vol] 287 mg/dL Critically high 74-[address] [facility] Comment on above: Performed By: #### A 1C #### [facility] [address] [place] [address] Dr. David Magana Potassium [Moles/Vol] 5.0 mmol/L Normal 3.5-5.1 [facility] Comment on above: Performed By: #### A 1C #### [facility] [address] [place] [address] Dr. David Magana Protein [Mass/Vol] 6.6 g/dL Normal 6.4-8.2 [facility] Comment on above: Performed By: #### A 1C #### [facility] [address] [address] [address] David Magana Sodium [Moles/Vol] 134 mmol/L Critically low 136-145 [facility] Comment on above: Performed By: #### A 1C #### [facility] [address] [address] [address] David Magana Urea nitrogen [Mass/Vol] 51.0 mg/dL Critically high 7.0-18.0 [facility] Comment on above: Performed By: #### A 1C #### [facility] [address] [place] [address] Dr. David Magana Urea nitrogen/Creatinine [Mass ratio] 28.3 mg/mg [facility] Comment on above: Performed By: #### A 1C #### [facility] [address] [place] [address] Dr. David Magana BLOOD GASES BTYon 07-18-2022 02 MODE NASAL CANNULA Normal [facility] Comment on above: Performed By: #### A 1C #### [facility] [address] [address] [address] David Magana ALLENS TEST Positive [facility] Comment on above: Performed By: #### A 1C #### [facility] [address] [place] [address] Dr. David Magana Base excess Calc (Bld) [Moles/Vol] -9.0000 mmol/L Critically low -2.0-2.0 [facility] Comment on above: Performed By: #### A 1C #### [facility] [address] [place] [address] Dr. David Magana BIPAP PRESSURE Normal [facility] Comment on above: Performed By: #### A 1C #### [facility] [address] [place] [address] Dr. David Magana CPAP [facility] Comment on above: Performed By: #### A 1C #### [facility] [address] [place] [address] Dr. David Magana FIO2 [facility] Comment on above: Performed By: #### A 1C #### [facility] [address] [place] [address] Dr. David Magana HCO3 (Bld) [Moles/Vol] 18.4 mmol/L Critically low 22.0-26.0 [facility] Comment on above: Performed By: #### A 1C #### [facility] [address] [place] [address] Dr. David Magana LPM 1.5 Normal [facility] Comment on above: Performed By: #### A 1C #### [facility] [address] [place] [address] Dr. David Magana MINUTE VOLUME Normal [facility] Comment on above: Performed By: #### A 1C #### [facility] [address] [place] [address] Dr. David Magana Oxygen (Bld) [Partial pressure] 69.5 mm[Hg] Critically low 80.0-100.0 [facility] Comment on above: Performed By: #### A 1C #### [facility] [address] [place] [address] Dr. David Magana Oxygen saturation in Blood 94.2 % Critically low 95.0-100.0 [facility] Comment on above: Performed By: #### A 1C #### [facility] [address] [place] [address] Dr. David Magana PCO2 29.6 mmHg Critically low 35.0-45.0 [facility] Comment on above: Performed By: #### A 1C #### [facility] [address] [place] [address] Dr. David Magana PEEP [facility] Comment on above: Performed By: #### A 1C #### [facility] [address] [place] [address] Dr. David Magana pH (Bld) 7.355 [pH] Normal 7.350-7.450 [facility] Comment on above: Performed By: #### A 1C #### [facility] [address] [place] [address] Dr. David Magana [facility] Comment on above: Performed By: #### A 1C #### [facility] [address] [place] [address] Dr. David Magana [facility] Comment on above: Performed By: #### A 1C #### [facility] [address] [place] [address] Dr. David Magana PUNCTURE SITE LR [facility] Comment on above: Performed By: #### A 1C #### [facility] [address] [place] [address] Dr. David Magana RATE [facility] Comment on above: Performed By: #### A 1C #### [facility] [address] [place] [address] Dr. David Magana VENT MODE [facility] Comment on above: Performed By: #### A 1C #### [facility] [address] [place] [address] Dr. David Magana [facility] Comment on above: Performed By: #### A 1C #### [facility] [address] [place] [address] Dr. David Magana BNPon 07-18-2022 Natriuretic peptide B (Bld) [Mass/Vol] 7047.0 pg/mL Critically high <=1,800.0 [facility] Comment on above: Performed By: #### C VDTB #### [facility] [address] [address] [address] David Magana CARDIAC BARRIE 3-6on 2 CK [Catalytic activity/Vol] 396 U/L Critically high 39-308 [facility] Comment on above: Performed By: #### M G, BMP, PHOS #### [facility] [address] [address] [address] David Magana CK.MB [Mass/Vol] 2.94 ng/mL Normal <=3.60 [facility] Comment on above: Performed By: #### M G, BMP, PHOS #### [facility] [address] [address] [address] David Magana HSTROP 11.1 pg/mL Normal 4.0-76.1 [facility] Comment on above: Result Comment: CUT- OFF POINTS HAVE BEEN ESTABLISHED BASED ON THE FOURTH UNIVERSAL DEFINITIONS OF MYOCARDIAL INFARCTION. THE UPPER REFERENCE LIMIT (URL) OF TROPONIN, DEFINED THE 99TH PERCENTILE OF cTnI DISTRIBUTION IN A REFERENCE POPULATION, HAS BEEN CONFIRMED THE DECISION THRESHOLD FOR AR DIAGNOSIS. Performed By: #### M G, BMP, PHOS #### [facility] [address] [place] [address] Dr. David Magana CK [Catalytic activity/Vol] 58 U/L Normal 39-308 [facility] Comment on above: Performed By: #### M G, BMP, PHOS #### [facility] [address] [address] [address] David Magana CK.MB [Mass/Vol] 1.71 ng/mL Normal <=3.60 [facility] Comment on above: Performed By: #### M G, BMP, PHOS #### [facility] [address] [address] [address] David Magana HSTROP 10.6 pg/mL Normal 4.0-76.1 [facility] Comment on above: Result Comment: CUT- OFF POINTS HAVE BEEN ESTABLISHED BASED ON THE FOURTH UNIVERSAL DEFINITIONS OF MYOCARDIAL INFARCTION. THE UPPER REFERENCE LIMIT (URL) OF TROPONIN, DEFINED THE 99TH PERCENTILE OF cTnI DISTRIBUTION IN A REFERENCE POPULATION, HAS BEEN CONFIRMED THE DECISION THRESHOLD FOR AR DIAGNOSIS. Performed By: #### M ERICK Faith, PHOS #### [facility] [address] [place] [address] Dr. David Magana CBC AUTO DIFFon 07-18-2022 BASO # 0.0 103/ul Normal 0.0-0.1 [facility] Comment on above: Performed By: #### M GERICK, PHOS #### [facility] [address] [place] [address] Dr. David Magana Basophils/100 WBC (Bld) 0.2 % Normal 0.2-2.0 [facility] Comment on above: Performed By: #### M ERICK Faith, PHOS #### [facility] [address] [place] [address] Dr. David Magana EO # 0.0 103/ul Normal 0.0-0.7 [facility] Comment on above: Performed By: #### M ERICK Faith, PHOS #### [facility] [address] [place] [address] Dr. David Magana Eosinophils/100 WBC (Bld) 0.2 % Critically low 0.9-7.0 [facility] Comment on above: Performed By: #### M ERICK Faith, PHOS #### [facility] [address] [place] [address] Dr. David Magana Erythrocyte distribution width (RBC) [Ratio] 13.2 % Normal 11.0-15.0 [facility] Comment on above: Performed By: #### M ERICK Faith, PHOS #### [facility] [address] [place] [address] Dr. David Magana Hematocrit (Bld) [Volume fraction] 43.8 % Normal 42.0-54.0 [facility] Comment on above: Performed By: #### M ERICK Faith, PHOS #### [facility] [address] [address] [address] David Magana Hemoglobin (Bld) [Mass/Vol] 14.5 g/dL Normal 14.0-18.0 [facility] Comment on above: Performed By: #### M Marcell, BMP, PHOS #### [facility] [address] [address] [address] David Magana IG # 0.15 10e3/ul Critically high 0.00-0.03 [facility] Comment on above: Performed By: #### M G, BMP, PHOS #### [facility] [address] [address] [address] David Magana IG % 1.3 % Critically high 0.0-0.5 [facility] Comment on above: Performed By: #### M Marcell, BMP, PHOS #### [facility] [address] [place] [address] Dr. David Magana LYMPH # 0.5 103/ul Critically low 1.2-3.[address] [facility] Comment on above: Performed By: #### M Marcell, BMP, PHOS #### [facility] [address] [place] [address] Dr. David Magana Lymphocytes/100 WBC (Bld) 3.8 % Critically low 20.5-60.0 [facility] Comment on above: Performed By: #### M Marcell, BMP, PHOS #### [facility] [address] [place] [address] Dr. David Magana MANUAL DIFF REQ NO Normal [facility] Comment on above: Performed By: #### M G, BMP, PHOS #### [facility] [address] [place] [address] Dr. David Magana MCH (RBC) [Entitic mass] 32.7 pg Normal 25.9-34.0 [facility] Comment on above: Performed By: #### M G, BMP, PHOS #### [facility] [address] [place] [address] Dr. David Magana MCHC (RBC) [Mass/Vol] 33.1 g/dL Normal 29.9-35.2 [facility] Comment on above: Performed By: #### M ERICK Faith, PHOS #### [facility] [address] [place] [address] Dr. David Magana MCV (RBC) [Entitic vol] 98.9 fL Critically high 80.0-94.0 [facility] Comment on above: Performed By: #### M ERICK Faith, PHOS #### [facility] [address] [place] [address] Dr. David Magana MONO # 0.7 103/ul Normal 0.3-0.8 [facility] Comment on above: Performed By: #### M ERICK Faith, PHOS #### [facility] [address] [place] [address] Dr. David Magana Monocytes/100 WBC (Bld) 5.7 % Normal 1.7-12.0 [facility] Comment on above: Performed By: #### ERICK Jacques, PHOS #### [facility] [address] [place] [address] Dr. David Magana NEUT # 10.4 103/ul Critically high 1.4-6.5 [facility] Comment on above: Performed By: #### ERICK Jacques, PHOS #### [facility] [address] [place] [address] Dr. David Magana Neutrophils/100 WBC (Bld) 88.8 % Critically high 43.0-75.0 [facility] Comment on above: Performed By: #### ERICK Jacques, PHOS #### [facility] [address] [place] [address] Dr. David Magana Platelet mean volume (Bld) [Entitic vol] 11.0 fL Normal 9.5-13.5 [facility] Comment on above: Performed By: #### M Marcell BMP, PHOS #### [facility] [address] [place] [address] Dr. David Magana PLT 198 103/ul Normal 150-450 [facility] Comment on above: Performed By: #### M ERICK Faith, PHOS #### [facility] [address] [address] [address] David Magana RBC 4.43 106/ul Critically low 4.70-6.10 [facility] Comment on above: Performed By: #### M ERICK Faith PHOS #### [facility] [address] [place], [place] [address] Dr. David Magana WBC 11.8 103/ul Critically high 4.0-11.0 [facility] Comment on above: Performed By: #### M ERICK Faith PHOS #### [facility] [address] [place], [place] [address] HEAD WO CONon [...] FRANCISCO ZELAYA Date: 2022-07-18 05:12 Normal [facility] Covid-19 PCR (CVDTB)on SARS-CoV-2 (COVID-19) RNA SULTANA+probe Ql (Unsp spec) Detected Critically abnormal NOT DETECTED [facility] Comment on above: Result Comment: This test is not yet approved or cleared by the [place] FDA. When there are no FDA-approved or cleared tests available, and other criteria are met, FDA can make tests available under an emergency access mechanism called an Emergency Use Authorization (EUA). The EUA for this test is supported by the [place] of Health and Human Service's declaration that [...] used). Performed By: #### C VDTBH #### [facility] [address] [place] [address] Dr. David Magana D-DIMERon 07-18-2022 D-DIMER 1.69 mg/L FEU Critically high <=0.59 [facility] Comment on above: Performed By: #### C BC #### [facility] [address] [place] [address] Dr. David Magana D-DIMER COMMENTS SEE BELOW Normal [facility] Comment on above: Result Comment: Incr [...] hospitalization. Performed By: #### C BC #### [facility] [address] [place] [address] Dr. David Magana POINT OF CARE GLUCOSEon Glucose [Mass/Vol] 329 mg/dL Critically high 74-106 [facility] Comment on above: Performed By: #### P OCGLUC #### [facility] [address] [place] [address] Dr. David Magana Glucose [Mass/Vol] 354 mg/dL Critically high 74-106 [facility] Comment on above: Performed By: #### P OCGLUC #### [facility] [address] [place] [address] Dr. David Magana PROF 14(COMP METB)on 022 Albumin [Mass/Vol] 3.6 g/dL Normal 3.4-5.0 [facility] Comment on above: Performed By: #### C VDTBH #### [facility] [address] [address] [address] David Magana Albumin/Globulin [Mass ratio] 1.1 {ratio} Normal [facility] Comment on above: Performed By: #### C VDTBH #### [facility] [address] [address] [address] David Magana ALP [Catalytic activity/Vol] 67 U/L Normal 46-116 [facility] Comment on above: Performed By: #### C VDTBH #### [facility] [address] [address] [address] David Magana ALT [Catalytic activity/Vol] 33 U/L Normal 16-63 [facility] Comment on above: Performed By: #### C VDTBH #### [facility] [address] [address] [address] David Magana Anion gap [Moles/Vol] 23.5 mmol/L Normal [facility] Comment on above: Performed By: #### C VDTBH #### [facility] [address] [address] [address] David Magana AST [Catalytic activity/Vol] 13 U/L Critically low 15-37 [facility] Comment on above: Performed By: #### C VDTBH #### [facility] [address] [address] [address] David Magana Bilirubin [Mass/Vol] 0.6 mg/dL Normal 0.2-1.0 [facility] Comment on above: Performed By: #### C VDTBH #### [facility] [address] [address] [address] David Magana Calcium [Mass/Vol] 8.4 mg/dL Critically low 8.5-10.1 [facility] Comment on above: Performed By: #### C VDTBH #### [facility] [address] [address] [address] David Magana Chloride [Moles/Vol] 93 mmol/L Critically low 98-107 [facility] Comment on above: Performed By: #### C VDTBH #### [facility] [address] [place] [address] Dr. David Magana CO2 [Moles/Vol] 17.9 mmol/L Critically low 21.0-32.0 [facility] Comment on above: Performed By: #### C VDTBH #### [facility] [address] [address] [address] David Magana Creatinine [Mass/Vol] 2.15 mg/dL Critically high 0.70-1.30 [facility] Comment on above: Performed By: #### C VDTBH #### [facility] [address] [place] [address] Dr. David Magana EGFR-AF [facility] 36 mL/min/1.73m2 Critically low >=60 [facility] Comment on above: Performed By: #### C VDTBH #### [facility] [address] [place] [address] Dr. David Magana EGFR-NON AF [facility] 30 mL/min/1.73m2 Critically low >=60 [facility] Comment on above: Performed By: #### C VDTBH #### [facility] [address] [place] [address] Dr. David Magana Globulin (S) [Mass/Vol] 3.2 g/dL Normal [facility] Comment on above: Performed By: #### C VDTBH #### [facility] [address] [place] [address] Dr. David Magana Glucose [Mass/Vol] 345 mg/dL Critically high 74-[address] [facility] Comment on above: Performed By: #### C VDTBH #### [facility] [address] [place] [address] Dr. David Magana Potassium [Moles/Vol] 5.4 mmol/L Critically high 3.5-5.1 [facility] Comment on above: Performed By: #### C VDTBH #### [facility] [address] [place] [address] Dr. David Magana Performed By: #### K #### [facility] [address] [place] [address] Dr. David Magana Protein [Mass/Vol] 6.8 g/dL Normal 6.4-8.2 [facility] Comment on above: Performed By: #### C VDTBH #### [facility] [address] [place] [address] Dr. David Magana Sodium [Moles/Vol] 129 mmol/L Critically low 136-145 Th e [facility] Comment on above: Performed By: #### C VDTBH #### [facility] [address] [place] [address] Dr. David Magana Urea nitrogen [Mass/Vol] 65.0 mg/dL Critically high 7.0-18.0 [facility] Comment on above: Performed By: #### C VDTBH #### [facility] [address] [place] [address] Dr. David Magana Urea nitrogen/Creatinine [Mass ratio] 30.2 mg/mg Normal [facility] Comment on above: Performed By: #### C VDTBH #### [facility] [address] [place] [address] Dr. David Magana UA RANDOM W/MICROSCOPICon BACTERIA NONE SEEN Normal NONE SEEN [facility] Comment on above: Performed By: #### ERICK Jacques, PHOS #### [facility] [address] [place] [address] Dr. David Magana Bilirubin Ql (U) Negative Normal NEGATIVE [facility] Comment on above: Performed By: #### M Marcell BMP, PHOS #### [facility] [address] [place] [address] Dr. David Magana CAST NONE SEEN Normal NONE SEEN [facility] Comment on above: Performed By: #### M Marcell BMP, PHOS #### [facility] [address] [place] [address] Dr. David Magana Clarity (U) CLEAR Normal CLEAR [facility] Comment on above: Performed By: #### M Marcell BMP, PHOS #### [facility] [address] [place] [address] Dr. David Magana Color (U) LT. YELLOW Normal YELLOW [facility] Comment on above: Performed By: #### M G, BMP, PHOS #### [facility] [address] [address] [address] David Magana Crystals LM Nom (Urine sed) NONE SEEN Normal NONE SEEN [facility] Comment on above: Performed By: #### M G, BMP, PHOS #### [facility] [address] [address] [address] David Magana Epithelial cells LM Ql (Urine sed) RARE Normal NONE SEEN /RARE [facility] Comment on above: Performed By: #### M G, BMP, PHOS #### [facility] [address] [address] [address] David Magana Glucose Ql (U) 1000 mg/dl Abnormal NEGATIVE [facility] Comment on above: Performed By: #### M G, BMP, PHOS #### [facility] [address] [address] [address] David Magana Hemoglobin Ql (U) Negative Normal NEGATIVE [facility] Comment on above: Performed By: #### M G, BMP, PHOS #### [facility] [address] [address] [address] David Magana Ketones Ql (U) 15 mg/dl Abnormal NEGATIVE [facility] Comment on above: Performed By: #### M G, BMP, PHOS #### [facility] [address] [address] [address] David Magana LEUKOCYTES Negative Normal NEGATIVE [facility] Comment on above: Performed By: #### M G, BMP, PHOS #### [facility] [address] [address] [address] David Magana MUCOUS NONE SEEN Normal NONE SEEN [facility] Comment on above: Performed By: #### M G, BMP, PHOS #### [facility] [address] [address] [address] David Magana Nitrite Ql (U) Negative Normal NEGATIVE [facility] Comment on above: Performed By: #### M G, BMP, PHOS #### [facility] [address] [address] [address] David Magana pH (U) 5.5 [pH] Normal 5-9 [facility] Comment on above: Performed By: #### ERICK Jacques, PHOS #### [facility] [address] [place] [address] Dr. David Magana RBC NONE SEEN Abnormal 0-2 [facility] Comment on above: Performed By: #### M ERICK Faith, PHOS #### [facility] [address] [place] [address] Dr. David Magana SPEC GRAVITY <=1.005 Abnormal 1.005-<=1.025 [facility] Comment on above: Performed By: #### ERICK Jacques, PHOS #### [facility] [address] [place] [address] Dr. David Magana UA PROTEIN Negative Normal NEGATIVE/ TRACE [facility] Comment on above: Performed By: #### ERICK Jacques, PHOS #### [facility] [address] [place] [address] Dr. David Magana Urobilinogen Qn (U) 0.2 {Dionna'U}/dL Normal 0.2 - 1. 0 [facility] Comment on above: Performed By: #### ERICK Jacques, PHOS #### [facility] [address] [place] [address] Dr. David Magana WBC NONE SEEN Normal NONE SEEN [facility] Comment on above: Performed By: #### ERICK Jacques, PHOS #### [facility] [address] [place] [address] Dr. David Magana XR CHEST 1 Von [...] Yefri DWYER Date: 2022-07-18 00:09 Normal [facility] CARDIAC BARRIE ADMITon 022 CK [Catalytic activity/Vol] 61 U/L Normal 39-308 [facility] Comment on above: Performed By: #### C BC #### [facility] [address] [address] [address] Dvaid Magana CK.MB [Mass/Vol] 1.84 ng/mL Normal <=3.60 [facility] Comment on above: Performed By: #### C BC #### [facility] [address] [address] [address] David Magana HSTROP 9.4 pg/mL Normal 4.0-76.1 [facility] Comment on above: Result Comment: CUT- OFF POINTS HAVE BEEN ESTABLISHED BASED ON THE FOURTH UNIVERSAL DEFINITIONS OF MYOCARDIAL INFARCTION. THE UPPER REFERENCE LIMIT (URL) OF TROPONIN, DEFINED THE 99TH PERCENTILE OF cTnI DISTRIBUTION IN A REFERENCE POPULATION, HAS BEEN CONFIRMED THE DECISION THRESHOLD FOR AR DIAGNOSIS. Performed By: #### C BC #### [facility] [address] [address] [address] David Magana DUSTIN 533 ng/mL Critically high 16-96 [facility] Comment on above: Performed By: #### C BC #### [facility] [address] [address] [address] David Magana CBC AUTO DIFFon 07-17-2022 BASO # 0.0 103/ul Normal 0.0-0.1 [facility] Comment on above: Performed By: #### ERICK Jacques PHOS #### [facility] [address] [place] [address] Dr. David Magana Basophils/100 WBC (Bld) 0.2 % Normal 0.2-2.0 [facility] Comment on above: Performed By: #### ERICK Jacques, PHOS #### [facility] [address] [address] [address] David Magana EO # 0.0 103/ul Normal 0.0-0.7 [facility] Comment on above: Performed By: #### ERICK Jacques PHOS #### [facility] [address] [address] [address] David Magana Eosinophils/100 WBC (Bld) 0.1 % Critically low 0.9-7.0 [facility] Comment on above: Performed By: #### M ERICK Faith, PHOS #### [facility] [address] [place] [address] Dr. David Magana Erythrocyte distribution width (RBC) [Ratio] 13.2 % Normal 11.0-15.0 [facility] Comment on above: Performed By: #### M Marcell, ERICK, PHOS #### [facility] [address] [place] [address] Dr. David Magana Hematocrit (Bld) [Volume fraction] 43.1 % Normal 42.0-54.0 [facility] Comment on above: Performed By: #### M ERICK Faith, PHOS #### [facility] [address] [place] [address] Dr. David Magana Hemoglobin (Bld) [Mass/Vol] 14.5 g/dL Normal 14.0-18.0 [facility] Comment on above: Performed By: #### M ERICK Faith, PHOS #### [facility] [address] [place] [address] Dr. David Magana IG # 0.14 10e3/ul Critically high 0.00-0.03 [facility] Comment on above: Performed By: #### ERICK Jacques, PHOS #### [facility] [address] [place] [address] Dr. David Magana IG % 1.2 % Critically high 0.0-0.5 [facility] Comment on above: Performed By: #### M Marcell BMP, PHOS #### [facility] [address] [place] [address] Dr. David Magana LYMPH # 0.4 103/ul Critically low 1.2-3.[address] [facility] Comment on above: Performed By: #### M Marcell BMP, PHOS #### [facility] [address] [place] [address] Dr. David Magana Lymphocytes/100 WBC (Bld) 3.4 % Critically low 20.5-60.0 [facility] Comment on above: Performed By: #### M ERICK Faith, PHOS #### [facility] [address] [place] [address] Dr. David Magana MANUAL DIFF REQ NO Normal [facility] Comment on above: Performed By: #### M Marcell BMP, PHOS #### [facility] [address] [place] [address] Dr. David Magana MCH (RBC) [Entitic mass] 33.3 pg Normal 25.9-34.0 [facility] Comment on above: Performed By: #### M ERICK Faith, PHOS #### [facility] [address] [place] [address] Dr. David Magana MCHC (RBC) [Mass/Vol] 33.6 g/dL Normal 29.9-35.2 [facility] Comment on above: Performed By: #### ERICK Jacques, PHOS #### [facility] [address] [place] [address] Dr. David Magana MCV (RBC) [Entitic vol] 98.9 fL Critically high 80.0-94.0 [facility] Comment on above: Performed By: #### ERICK Jacques, PHOS #### [facility] [address] [place] [address] Dr. David Magana MONO # 1.1 103/ul Critically high 0.3-0.8 [facility] Comment on above: Performed By: #### ERICK Jacques, PHOS #### [facility] [address] [place] [address] Dr. David Magana Monocytes/100 WBC (Bld) 8.9 % Normal 1.7-12.0 [facility] Comment on above: Performed By: #### M ERICK Faith, PHOS #### [facility] [address] [place] [address] Dr. David Magana NEUT # 10.3 103/ul Critically high 1.4-6.5 [facility] Comment on above: Performed By: #### ERICK Jacques, PHOS #### [facility] [address] [address] [address] David Magana Neutrophils/100 WBC (Bld) 86.2 % Critically high 43.0-75.0 [facility] Comment on above: Performed By: #### M Marcell BMP, PHOS #### [facility] [address] [address] [address] David Magana Platelet mean volume (Bld) [Entitic vol] 11.1 fL Normal 9.5-13.5 [facility] Comment on above: Performed By: #### M Marcell, BMP, PHOS #### [facility] [address] [address] [address] David Magana PLT 229 103/ul Normal 150-450 [facility] Comment on above: Performed By: #### M Marcell BMP, PHOS #### [facility] [address] [place] [address] Dr. David Magana RBC 4.36 106/ul Critically low 4.70-6.10 [facility] Comment on above: Performed By: #### M ERICK Faith, PHOS #### [facility] [address] [address] [address] David Magana WBC 11.9 103/ul Critically high 4.0-11.0 [facility] Comment on above: Performed By: #### M ERICK Faith, PHOS #### [facility] [address] [address] [address] David Magana PROF CHEM 8 (BAS METB)on Anion gap [Moles/Vol] 26.5 mmol/L Normal [facility] Comment on above: Performed By: #### C BC #### [facility] [address] [place] [address] Dr. David Magana Calcium [Mass/Vol] 8.2 mg/dL Critically low 8.5-10.1 [facility] Comment on above: Performed By: #### C BC #### [facility] [address] [address] [address] David Magana Chloride [Moles/Vol] 89 mmol/L Critically low 98-107 [facility] Comment on above: Performed By: #### C BC #### [facility] [address] [address] [address] David Magana CO2 [Moles/Vol] 14.5 mmol/L Critically low 21.0-32.0 [facility] Comment on above: Performed By: #### C BC #### [facility] [address] [address] [address] David Magana Creatinine [Mass/Vol] 2.78 mg/dL Critically high 0.70-1.30 [facility] Comment on above: Performed By: #### C BC #### [facility] [address] [place] [address] Dr. David Magana EGFR-AF [facility] 27 mL/min/1.73m2 Critically low >=60 [facility] Comment on above: Performed By: #### C BC #### [facility] [address] [place] [address] Dr. David Magana EGFR-NON AF [facility] 22 mL/min/1.73m2 Critically low >=60 [facility] Comment on above: Performed By: #### C BC #### [facility] [address] [place] [address] Dr. David Magana Glucose [Mass/Vol] 442 mg/dL Critically high 74-[address] [facility] Comment on above: Performed By: #### C BC #### [facility] [address] [place] [address] Dr. David Magana Potassium [Moles/Vol] 6.0 mmol/L Critically high 3.5-5.1 [facility] Comment on above: Performed By: #### C BC #### [facility] [address] [address] [address] David Magana Sodium [Moles/Vol] 124 mmol/L Critically low 136-145 [facility] Comment on above: Performed By: #### C BC #### [facility] [address] [place] [address] Dr. David Magana Urea nitrogen [Mass/Vol] 73.0 mg/dL Critically high 7.0-18.0 [facility] Comment on above: Performed By: #### C BC #### [facility] [address] [address] [address] David Magana Urea nitrogen/Creatinine [Mass ratio] 26.3 mg/mg Normal [facility] Comment on above: Performed By: #### C BC #### [facility] [address] [address] [address] David Magana Covid-19 PCR (CVDTB)on 06-16 SARS-CoV-2 (COVID-19) RNA SULTANA+probe Ql (Unsp spec) Detected Critically abnormal NOT DETECTED [facility] Comment on above: Result Comment: This test is not yet approved or cleared by the [place] FDA. When there are no FDA-approved or cleared tests available, and other criteria are met, FDA can make tests available under an emergency access mechanism called an Emergency Use Authorization (EUA). The EUA for this test is supported by the Inventory Associate And Driver of Health and Human Service's (HHS's) declaration [...] By: #### M ERICK Faith PHOS #### [facility] [address] [address] [address] David Magana ECHOCARDIO M/2D COMPLETEon 0 07-01-2022 ECHOCARDIO M/2D COMPLETE Patient: NADIR HEREDIA Exam Date: 07/01/2022 : 1940 Gender:M Ordering : DR CLARIBEL PUGA M.D. Admission #: [id number] Family : DR VAN SUNG . Order #: [id number] CLICK HERE TO VIEW EXAM ECHOCARDIOGRAM REPORT [...] M.D. on 07/01/2022 at 16:27 Normal [facility] Covid-19 PCR ([facility])on SARS-CoV-2 (COVID-19) RNA SULTANA+probe Ql (Unsp spec) Not detected Normal NOT DETECTED [facility] Comment on above: Result Comment: When [...] for this test is supported by the Inventory Associate And Driver of Health and Human Service's declaration that [...] longer be used). Performed By: #### [facility] #### [facility] [address] [place] [address] Dr. David Magana CREATININE URINEon 2 URINE CREAT 14.70 mg/dL Critically low 20.00-300.00 [facility] Comment on above: Performed By: #### M ERICK Faith, PHOS #### [facility] [address] [place] [address] Dr. David Magana GLYCOHEMOGLOBIN A1Con 2021 ADA RECOMMENDATION SEE BELOW Normal [facility] Comment on above: Result Comment: ADA RECOMMENDED LIMIT 4.0 - 6.0 ADA THERAPEUTIC TARGET < 7.0 ACTION SUGGESTED > 7.0 Performed By: #### A 1C #### [facility] [address] [place] [address] Dr. David Magana Glucose [Mass/Vol] 209 mg/dL Normal [facility] Comment on above: Performed By: #### A 1C #### [facility] [address] [place] [address] Dr. David Magana HbA1c (Bld) [Mass fraction] 8.9 % Critically high 4.5-6.2 [facility] Comment on above: Performed By: #### A 1C #### [facility] [address] [place] [address] Dr. David Magana MAGNESIUMon 06-08-2022 Magnesium [Mass/Vol] 2.3 mg/dL Normal 1.8-2.4 [facility] Comment on above: Performed By: #### M ERICK Faith PHOS #### [facility] [address] [place] [address] Dr. David Magana PHOSPHORUSon 06-08-2022 Phosphate [Mass/Vol] 3.5 mg/dL Normal 2.6-4.7 [facility] Comment on above: Performed By: #### M ERICK Faith, PHOS #### [facility] [address] [place] [address] Dr. David Magana PROF CHEM 8 (BAS METB)on Anion gap [Moles/Vol] 10.6 mmol/L Normal [facility] Comment on above: Performed By: #### M G, BMP, PHOS #### [facility] [address] [address] [address] David Magana Calcium [Mass/Vol] 9.2 mg/dL Normal 8.5-10.1 [facility] Comment on above: Performed By: #### M G, BMP, PHOS #### [facility] [address] [place] [address] Dr. David Magana Chloride [Moles/Vol] 102 mmol/L Normal 98-107 [facility] Comment on above: Performed By: #### M G, BMP, PHOS #### [facility] [address] [place] [address] Dr. David Magana CO2 [Moles/Vol] 30.1 mmol/L Normal 21.0-32.0 [facility] Comment on above: Performed By: #### M G, BMP, PHOS #### [facility] [address] [place] [address] Dr. David Magana Creatinine [Mass/Vol] 1.70 mg/dL Critically high 0.70-1.30 [facility] Comment on above: Performed By: #### M G, BMP, PHOS #### [facility] [address] [place] [address] Dr. David Magana EGFR-AF [facility] 47 mL/min/1.73m2 Critically low >=60 [facility] Comment on above: Performed By: #### M G, BMP, PHOS #### [facility] [address] [place] [address] Dr. David Magana EGFR-NON AF [facility] 39 mL/min/1.73m2 Critically low >=60 [facility] Comment on above: Performed By: #### M G, BMP, PHOS #### [facility] [address] [place] [address] Dr. David Magana Glucose [Mass/Vol] 197 mg/dL Critically high 74-106 [facility] Comment on above: Performed By: #### M G, BMP, PHOS #### [facility] [address] [place] [address] Dr. David Magana Potassium [Moles/Vol] 4.7 mmol/L Normal 3.5-5.1 [facility] Comment on above: Performed By: #### ERICK Jacques, PHOS #### [facility] [address] [place] [address] Dr. David Magana Sodium [Moles/Vol] 138 mmol/L Normal 136-145 [facility] Comment on above: Performed By: #### ERICK Jacques, PHOS #### [facility] [address] [place] [address] Dr. David Magana Urea nitrogen [Mass/Vol] 25.0 mg/dL Critically high 7.0-18.0 [facility] Comment on above: Performed By: #### ERICK Jacques, PHOS #### [facility] [address] [place] [address] Dr. David Magana Urea nitrogen/Creatinine [Mass ratio] 14.7 mg/mg Normal [facility] Comment on above: Performed By: #### ERICK Jacques, PHOS #### [facility] [address] [place] [address] Dr. David Magana PROTEIN RAND URINEon 022 UR PROT <5.0 Normal <=11.9 [facility] Comment on above: Performed By: #### C REAU, PROTU #### [facility] [address] [place] [address] Dr. David Magana BILIRUBIN CONJUGATED (DIRECT )on 04-28-2022 BILI, CONJUGATED 0.1 mg/dL Normal 0.0-0.2 [facility] Comment on above: Performed By: #### P OCGLUC #### [facility] [address] [place] [address] Dr. David Magana CBC AUTO DIFFon 04-28-2022 BASO # 0.1 103/ul Normal 0.0-0.1 [facility] Comment on above: Performed By: #### C VDTBH #### [facility] [address] [place] [address] Dr. David Magana Basophils/100 WBC (Bld) 0.7 % Normal 0.2-2.0 [facility] Comment on above: Performed By: #### C VDTBH #### [facility] [address] [place] [address] Dr. David Magana EO # 0.5 103/ul Normal 0.0-0.7 [facility] Comment on above: Performed By: #### C VDTBH #### [facility] [address] [place] [address] Dr. David Magana Eosinophils/100 WBC (Bld) 6.7 % Normal 0.9-7.0 [facility] Comment on above: Performed By: #### C VDTBH #### [facility] [address] [place] [address] Dr. David Magana Erythrocyte distribution width (RBC) [Ratio] 13.6 % Normal 11.0-15.0 [facility] Comment on above: Performed By: #### C VDTBH #### [facility] [address] [place] [address] Dr. David Magana Hematocrit (Bld) [Volume fraction] 45.9 % Normal 42.0-54.0 [facility] Comment on above: Performed By: #### C VDTBH #### [facility] [address] [place] [address] Dr. David Magana Hemoglobin (Bld) [Mass/Vol] 14.9 g/dL Normal 14.0-18.0 [facility] Comment on above: Performed By: #### C VDTBH #### [facility] [address] [place] [address] Dr. David Magana IG # 0.03 10e3/ul Normal 0.00-0.03 [facility] Comment on above: Performed By: #### C VDTBH #### [facility] [address] [place] [address] Dr. David Magana IG % 0.4 % Normal 0.0-0.5 [facility] Comment on above: Performed By: #### C VDTBH #### [facility] [address] [place] [address] Dr. David Magana LYMPH # 1.0 103/ul Critically low 1.2-3.[address] [facility] Comment on above: Performed By: #### C VDTBH #### [facility] [address] [place] [address] Dr. David Magana Lymphocytes/100 WBC (Bld) 13.4 % Critically low 20.5-60.0 [facility] Comment on above: Performed By: #### C VDTBH #### [facility] [address] [place] [address] Dr. David Magana MANUAL DIFF REQ NO Normal [facility] Comment on above: Performed By: #### C VDTBH #### [facility] [facility] [address] [place] [address] Dr. David Magana MCH (RBC) [Entitic mass] 33.8 pg Normal 25.9-34.0 [facility] Comment on above: Performed By: #### C VDTBH #### [facility] [address] [place] [address] Dr. David Magana MCHC (RBC) [Mass/Vol] 32.5 g/dL Normal 29.9-35.2 [facility] Comment on above: Performed By: #### C VDTBH #### [facility] [address] [place] [address] Dr. David Magana MCV (RBC) [Entitic vol] 104.1 fL Critically high 80.0-94.0 [facility] Comment on above: Performed By: #### C VDTBH #### [facility] [address] [place] [address] Dr. David Magana MONO # 0.8 103/ul Normal 0.3-0.8 [facility] Comment on above: Performed By: #### C VDTBH #### [facility] [address] [place] [address] Dr. David Magana Monocytes/100 WBC (Bld) 10.2 % Normal 1.7-12.0 [facility] Comment on above: Performed By: #### C VDTBH #### [facility] [address] [place] [address] Dr. David Magana NEUT # 5.1 103/ul Normal 1.4-6.5 [facility] Comment on above: Performed By: #### C VDTBH #### [facility] [address] [address] [address] David Magana Neutrophils/100 WBC (Bld) 68.6 % Normal 43.0-75.0 [facility] Comment on above: Performed By: #### C VDTBH #### [facility] [address] [address] [address] David Magana Platelet mean volume (Bld) [Entitic vol] 11.3 fL Normal 9.5-13.5 [facility] Comment on above: Performed By: #### C VDTBH #### [facility] [address] [place] [address] Dr. David Magana PLT 185 103/ul Normal 150-450 [facility] Comment on above: Performed By: #### C VDTBH #### [facility] [address] [address] [address] David Magana RBC 4.41 106/ul Critically low 4.70-6.10 [facility] Comment on above: Performed By: #### C VDTBH #### [facility] [address] [place] [address] Dr. David Magana WBC 7.5 103/ul Normal 4.0-11.0 [facility] Comment on above: Performed By: #### C VDTBH #### [facility] [address] [place] [address] Dr. David Magana FREE T3on 04-28-2022 FREE T3 2.17 pg/mlL Critically low 2.18-3.98 [facility] Comment on above: Performed By: #### P OCGLUC #### [facility] [address] [place] [address] Dr. David Magana LIPID PROFILEon 04-28-2022 CHOL-HDL RATIO NORM SEE BELOW Normal [facility] Comment on above: Result Comment: 3.3 - 4.4 LOW RISK 4.4 - 7.1 AVERAGE RISK 7.1 - 11.0 MODERATE RISK >11.0 HIGH RISK Performed By: #### P OCGLUC #### [facility] [address] [address] [address] David Magana Cholesterol [Mass/Vol] 234 mg/dL Critically high <=200 [facility] Comment on above: Performed By: #### P OCGLUC #### [facility] [address] [address] [address] David Magana Cholesterol in HDL [Mass/Vol] 58 mg/dL Normal 40-60 [facility] Comment on above: Performed By: #### P OCGLUC #### [facility] [address] [address] [address] David Magana Cholesterol in LDL [Mass/Vol] 129.0 mg/dL Normal [facility] Comment on above: Performed By: #### P OCGLUC #### [facility] [address] [address] [address] David Magana Cholesterol.total/Cho lesterol in HDL [Mass ratio] 4.0 {ratio} Normal [facility] Comment on above: Performed By: #### P OCGLUC #### [facility] [address] [address] [address] David Magana HDL NORMAL > or = 60 mg/dl - LOW CARDIOVASCULAR RISK <40 mg/dl - HIGH CARDIOVASCULAR RISK Normal [facility] Comment on above: Performed By: #### P OCGLUC #### [facility] [address] [address] [address] David Magana LDL CALC NORMAL SEE BELOW Normal [facility] Comment on above: Result Comment: <100 mg/dl OPTIMAL 100 - 129 mg/dl NEAR OR ABOVE OPTIMAL 130 - 159 mg/dl BORDERLINE HIGH 160 - 189 mg/dl HIGH >190 mg/dl VERY HIGH Performed By: #### P OCGLUC #### [facility] [address] [address] [address] David Magana Triglyceride [Mass/Vol] 235 mg/dL Critically high <=150 [facility] Comment on above: Performed By: #### P OCGLUC #### [facility] [address] [address] [address] David Magana VLDL CALC 47.0 mg/dL Normal [facility] Comment on above: Performed By: #### P OCGLUC #### [facility] [address] [place] [address] Dr. David Magana PROF 14(COMP METB)on 022 Albumin [Mass/Vol] 3.2 g/dL Critically low 3.4-5.0 [facility] Comment on above: Performed By: #### P OCGLUC #### [facility] [address] [place] [address] Dr. David Magana Albumin/Globulin [Mass ratio] 0.9 {ratio} Normal [facility] Comment on above: Performed By: #### P OCGLUC #### [facility] [address] [place] [address] Dr. David Magana ALP [Catalytic activity/Vol] 77 U/L Normal 46-116 [facility] Comment on above: Performed By: #### P OCGLUC #### [facility] [address] [place] [address] Dr. David Magana ALT [Catalytic activity/Vol] 24 U/L Normal 16-63 [facility] Comment on above: Performed By: #### P OCGLUC #### [facility] [address] [place] [address] Dr. David Magana Anion gap [Moles/Vol] 13.1 mmol/L Normal [facility] Comment on above: Performed By: #### P OCGLUC #### [facility] [address] [place] [address] Dr. David Magana AST [Catalytic activity/Vol] 13 U/L Critically low 15-37 [facility] Comment on above: Performed By: #### P OCGLUC #### [facility] [address] [place] [address] Dr. David Magana Bilirubin [Mass/Vol] 0.3 mg/dL Normal 0.2-1.0 [facility] Comment on above: Performed By: #### P OCGLUC #### [facility] [address] [place] [address] Dr. David Magana Calcium [Mass/Vol] 8.8 mg/dL Normal 8.5-10.1 [facility] Comment on above: Performed By: #### P OCGLUC #### [facility] [address] [address] [address] David Magana Chloride [Moles/Vol] 106 mmol/L Normal 98-107 [facility] Comment on above: Performed By: #### P OCGLUC #### [facility] [address] [address] [address] Dvaid Magana CO2 [Moles/Vol] 27.5 mmol/L Normal 21.0-32.0 [facility] Comment on above: Performed By: #### P OCGLUC #### [facility] [address] [place] [address] Dr. David Magana Creatinine [Mass/Vol] 1.62 mg/dL Critically high 0.70-1.30 [facility] Comment on above: Performed By: #### P OCGLUC #### [facility] [address] [address] [address] David Magana EGFR-AF [facility] 50 mL/min/1.73m2 Critically low >=60 [facility] Comment on above: Performed By: #### P OCGLUC #### [facility] [address] [place] [address] Dr. David Magana EGFR-NON AF [facility] 41 mL/min/1.73m2 Critically low >=60 [facility] Comment on above: Performed By: #### P OCGLUC #### [facility] [address] [address] [address] David Magana Globulin (S) [Mass/Vol] 3.4 g/dL Normal [facility] Comment on above: Performed By: #### P OCGLUC #### [facility] [address] [place] [address] Dr. David Magana Glucose [Mass/Vol] 206 mg/dL Critically high 74-106 [facility] Comment on above: Performed By: #### P OCGLUC #### [facility] [address] [place] [address] Dr. David Magana Potassium [Moles/Vol] 4.6 mmol/L Normal 3.5-5.1 [facility] Comment on above: Performed By: #### P OCGLUC #### [facility] [address] [address] [address] David Magana Protein [Mass/Vol] 6.6 g/dL Normal 6.4-8.2 [facility] Comment on above: Performed By: #### P OCGLUC #### [facility] [address] [address] [address] David Magana Sodium [Moles/Vol] 142 mmol/L Normal 136-145 [facility] Comment on above: Performed By: #### P OCGLUC #### [facility] [address] [place] [address] Dr. David Magana Urea nitrogen [Mass/Vol] 26.0 mg/dL Critically high 7.0-18.0 [facility] Comment on above: Performed By: #### P OCGLUC #### [facility] [address] [address] [address] David Magana Urea nitrogen/Creatinine [Mass ratio] 16.0 mg/mg Normal [facility] Comment on above: Performed By: #### P OCGLUC #### [facility] [address] [place] [address] Dr. David Magana T4on 04-28-2022 T4 [Mass/Vol] 7.70 ug/dL Normal 4.50-12.10 [facility] Comment on above: Performed By: #### P OCGLUC #### [facility] [address] [place] [address] Dr. David Magana TSHon 04-28-2022 TSH 2.187 uIU/mL Normal 0.358-3.740 [facility] Comment on above: Performed By: #### P OCGLUC #### [facility] [address] [place] [address] Dr. David Magana TSH RANGE SEE BELOW Normal [facility] Comment on above: Result Comment: <0.3 4 UIU/ml HYPERTHYROID 0.34-5.60 UIU/ml EUTHYROID >5.60 UIU/ml HYPOTHYROID Performed By: #### P OCGLUC #### [facility] [address] [place] [address] Dr. David Magana Vital Signs Date Time Vital Sign Value Performing Clinician Facility 10-14-2023 14:33-0500 Diastolic blood pressure 70 mm[Hg] Nereyda Patricia [facility] 10-14-2023 14:33-0500 Mean blood pressure 93 mm[Hg] Nereyda Patricia [facility] 10-14-2023 14:33-0500 Systolic blood pressure 138 mm[Hg] Nereyda Patricia [facility] 10-14-2023 14:18-0500 Blood Pressure Location Nereyda Patricia [facility] 10-14-2023 14:18-0500 Body temperature 97.88 [degF] Nereyda Patricia [facility] 10-14-2023 14:18-0500 Diastolic blood pressure 73 mm[Hg] Nereyda Patricia [facility] 10-14-2023 14:18-0500 Heart rate 91 /min Nereyda Patricia [facility] 10-14-2023 14:18-0500 Systolic blood pressure 143 mm[Hg] Nereyda Patricia [facility] 10-01-2023 12:13-0500 Diastolic blood pressure 66 mm[Hg] Nereyda Patricia [facility] 10-01-2023 12:13-0500 Mean blood pressure 104 mm[Hg] Nereyda Patricia [facility] 10-01-2023 12:13-0500 Systolic blood pressure 179 mm[Hg] Nereyda Patricia [facility] 10-01-2023 12:10-0500 Blood Pressure Location Nereyda Patricia [facility] 10-01-2023 12:10-0500 Body temperature 98.42 [degF] Nereyda Patricia [facility] 10-01-2023 12:10-0500 Diastolic blood pressure 77 mm[Hg] Nereyda Patricia [facility] 10-01-2023 12:10-0500 Heart rate 81 /min Nereyda Patricia [facility] 10-01-2023 12:10-0500 Respiratory rate 14 /min Nereyda Patricia [facility] 10-01-2023 12:10-0500 Systolic blood pressure 168 mm[Hg] Nereyda Patricia [facility] 06-10-2023 10:43-0400 Diastolic blood pressure 64 mm[Hg] Nereyda Patricia [facility] 06-10-2023 10:43-0400 Heart rate 76 /min Nereyda Patricia [facility] 06-10-2023 10:43-0400 Respiratory rate 16 /min Nereyda Patricia [facility] 06-10-2023 10:43-0400 SaO2% (BldA) [Mass fraction] 95 % Nereyda Patricia [facility] 06-10-2023 10:43-0400 Systolic blood pressure 121 mm[Hg] Nereyda Patricia [facility] 04-13-2023 14:19-0400 Diastolic blood pressure 70 mm[Hg] Nereyda Patricia [facility] 04-13-2023 14:19-0400 Mean blood pressure 95 mm[Hg] Nereyda Patricia [facility] 04-13-2023 14:19-0400 Systolic blood pressure 146 mm[Hg] Nereyda Patricia [facility] 04-13-2023 14:15-0400 Blood Pressure Location Nereyda Patricia [facility] 04-13-2023 14:15-0400 Body temperature 97.7 [degF] Nereyda Patricia [facility] 04-13-2023 14:15-0400 Diastolic blood pressure 87 mm[Hg] Nereyda Patricia [facility] 04-13-2023 14:15-0400 Heart rate 70 /min Nereyda Patricia [facility] 04-13-2023 14:15-0400 Systolic blood pressure 150 mm[Hg] Nereyda Patricia [facility] 06-09-2022 10:02-0400 Body temperature 96.98 [degF] Nereyda Patricia [facility] 06-09-2022 10:02-0400 Diastolic blood pressure 75 mm[Hg] Nereyda Patricia [facility] 06-09-2022 10:02-0400 Heart rate 72 /min Nereyda Patricia [facility] 06-09-2022 10:02-0400 SaO2% (BldA) [Mass fraction] 97 % Nereyda Donatoz [facility] 06-09-2022 10:02-0400 Systolic blood pressure 139 mm[Hg] Nereyda Donatoz [facility] 05-11-2022 11:30-0400 Diastolic blood pressure 102 mm[Hg] Bender SALAM [facility] 05-11-2022 11:30-0400 Heart rate 86 /min Bender SALAM [facility] 05-11-2022 11:30-0400 Respiratory rate 15 /min Bender SALAM [facility] 05-11-2022 11:30-0400 SaO2% (BldA) [Mass fraction] 95 % Bender SALAM [facility] 05-11-2022 11:30-0400 Systolic blood pressure 172 mm[Hg] Bender SALAM [facility] 05-11-2022 11:15-0400 Diastolic blood pressure 88 mm[Hg] Bender SALAM [facility] 05-11-2022 11:15-0400 Heart rate 86 /min Bender SALAM [facility] 05-11-2022 11:15-0400 Respiratory rate 18 /min Bender SALAM [facility] 05-11-2022 11:15-0400 SaO2% (BldA) [Mass fraction] 97 % Bender SALAM [facility] 05-11-2022 11:15-0400 Systolic blood pressure 170 mm[Hg] Bender SALAM [facility] 05-11-2022 11:10-0400 Diastolic blood pressure 108 mm[Hg] Bender SALAM [facility] 05-11-2022 11:10-0400 Heart rate 85 /min Bender SALAM [facility] 05-11-2022 11:10-0400 Respiratory rate 14 /min Bender SALAM [facility] 05-11-2022 11:10-0400 SaO2% (BldA) [Mass fraction] 97 % Bender SALAM [facility] 05-11-2022 11:10-0400 Systolic blood pressure 157 mm[Hg] Bender SALAM [facility] 05-11-2022 11:02-0400 Body temperature 97.34 [degF] Bender SALAM [facility] 05-11-2022 10:27-0400 Blood Pressure Location Bender SALAM [facility] 05-11-2022 10:23-0400 Blood Pressure Location Bender SALAM [facility] 05-11-2022 10:23-0400 Body temperature 98.24 [degF] Bender SALAM [facility] 03-31-2022 09:53-0400 Blood Pressure Location Nereydabruce JoyaPatricia [facility] 03-31-2022 09:53-0400 Body temperature 97.7 [degF] Nereydabruce JoyaPatricia [facility] 03-31-2022 09:53-0400 Diastolic blood pressure 72 mm[Hg] Nereyda Gomez [facility] 03-31-2022 09:53-0400 Heart rate 73 /min Nereyda Gomez [facility] 03-31-2022 09:53-0400 SaO2% (BldA) [Mass fraction] 96 % Nereyda Gomez [facility] 03-31-2022 09:53-0400 Systolic blood pressure 129 mm[Hg] Nereyda Gomez [facility] Encounters Encounter Date Encounter Type Care Provider Facility Start: 08-03-2024 End: 08-03-2024 ambulatory ROBINSON A BROWN Not Available Start: 08-01-2024 End: 08-01-2024 ambulatory BARRIE Gil BEBubba Not Available Start: 07-20-2024 End: 07-20-2024 ambulatory ROBINSON A BROWN Not Available Start: 07-06-2024 End: 07-06-2024 ambulatory ROBINSON A BROWN Not Available Start: 07-05-2024 End: 07-05-2024 ambulatory JEFF [facility] Start: 06-07-2024 End: 06-07-2024 ambulatory RUTHIE [facility] Start: 06-05-2024 End: 06-05-2024 ambulatory [facility] Start: 06-01-2024 End: 06-01-2024 ambulatory ROBINSON A BROWN Not Available Start: 04-20-2024 End: 04-20-2024 ambulatory ROBINSON A BROWN Not Available Start: 03-03-2024 End: 03-03-2024 ambulatory [facility] Start: 02-10-2024 End: 02-10-2024 ambulatory ROBINSON A AVIVA Not Available Start: 02-02-2024 ambulatory Nereyda Donatoz Facili ty:[facility] Start: 01-11-2024 End: 01-11-2024 ambulatory BARRIE BRASWELL Not Available Start: 12-09-2023 ambulatory Nereyda Donatoz Facili ty:[facility] Start: 12-02-2023 End: 12-02-2023 ambulatory ROBINSON Marroquin AVIVA Not Available Start: 11-17-2023 End: 11-17-2023 ambulatory DANA [facility] Start: 10-14-2023 End: 10-15-2023 ambulatory Nereyda Cara Patricia Facility[facility] Start: 10-14-2023 End: 10-14-2023 Patient encounter procedure Nereyda Donatoz [facility] Start: 10-01-2023 End: 10-02-2023 ambulatory Nereyda A Patricia [facility] Start: 10-01-2023 End: 10-02-2023 ambulatory Nereyda A Patricia Facility:[facility] Start: 10-01-2023 End: 10-01-2023 Patient encounter procedure Nereyda Donatoz [facility] Start: 10-01-2023 End: 10-01-2023 Patient encounter procedure Nereyda Gomez [facility] Start: 09-17-2023 End: 09-17-2023 ambulatory [facility] Start: 09-13-2023 End: 09-14-2023 ambulatory Nereydabruce Donatoz Facility[facility] Start: 09-13-2023 End: 09-13-2023 Patient encounter procedure Nereydabruce Joyametz [facility] Start: 08-31-2023 End: 08-31-2023 ambulatory [facility] Start: 07-21-2023 End: 07-21-2023 ambulatory [facility] Start: 06-10-2023 End: 06-11-2023 ambulatory Nereyda Gomez Facility:[facility] Start: 06-10-2023 End: 06-10-2023 Patient encounter procedure Nereyda Marroquin Patricia [facility] Start: 04-15-2023 End: 04-16-2023 ambulatory Nereyda Gomez [facility] Start: 04-15-2023 End: 04-15-2023 Lab Drop off Nereyda Gomez [facility] Start: 04-13-2023 End: 04-14-2023 ambulatory Nereyda Gomez Facility[facility] Start: 04-13-2023 End: 04-13-2023 Patient encounter procedure Nereyda Gomez [facility] Start: 03-24-2023 End: 03-25-2023 ambulatory [...] 07-22-2022 Evaluation and management of inpatient DR AVN SUNG . Facility:[facility] Start: 07-13-2022 End: 08-29-[address] VAN SUNG . Facility:[facility] Start: 07-01-2022 End: 07-02-[address] CLARIBEL PUGA Facility:[facility] Start: 06-16-2022 End: 06-16-[address] VAN SUNG . Facility:[facility] Start: 06-09-2022 End: 06-09-2022 Patient encounter procedure Nereyda A Patricia [facility] Start: 06-08-2022 End: 06-09-2022 ambulatory ALSTONRAMON DALEY Facility:[facility] Start: 05-11-2022 End: 05-11-2022 Patient encounter procedure Bender AVTAR [facility] Start: 04-28-2022 End: 04-29-[address] VAN SUNG . Facility:[facility] Start: 03-31-2022 End: 03-31-2022 Patient encounter procedure Nereyda Gomez [facility] Start: 2019 End: 02-07-2019 Patient encounter procedure DEFAULT PHYSICIAN Facility:[email or web address] Procedures Date Procedure Procedure Detail Performing Clinician Start: 05-11-2022 Colonoscopy Napoleon Fernandez Comment on above: 2 polyps, diveticulo sis, IH Start: 01-11-2017 Cardioversion Nereyda Modi nmmalvin Back structure, excl uding neck (body structure) Nereyda Gomez Cholecystectomy Nereyda mcdonough Colonoscopy Nereyda Gomez History of hernia repair Ave Joyametz Tonsillectomy Nereyda Gomez Immunizations Immunization Date Immunization Notes Care Provider Fa [facility] 10-21-2022 SARS-CoV-2 (COVID-19 ) mRNAMUL.[id number] Nereyda Gomez [facility] Comment on above: Result Comment: 2022: [id number] 08-26-2021 SARS-CoV-2 (COVID-19 ) mRNA BNT-162b2 vax Nereyda Gomez [facility] 01-01-2021 SARS-CoV-2 (COVID-19 ) mRNA BNT-162b2 vax Nereyda Gomez [facility] 12-09-2020 SARS-CoV-2 (COVID-19 ) mRNA BNT-162b2 vax Nereyda Gmoez [facility] 08-27-2020 influenza virus vaccine, unspecified formulation Nereyda Gomez [facility] 08-16-2017 pneumococcal conjugate vaccine, 13 valent Nereyda Gomez [facility] 08-05-2017 influenza, unspecified formulation Nereyda Gomez [facility] 09-20-2015 zoster vaccine, live Nereydabruce Nath [facility] NEGATED: Highlighted row has not occurred!10-13-2023 influenza virus vaccine, unspecified formulation Nereyda Gomez [facility] NEGATED: Highlighted row has not occurred!09-29-2023 influenza virus vaccine, unspecified formulation Nereyda Gomez [facility] Payers Date Payer Category Payer Unknown [id number] 1960 Medicare [id number] 1940 Unknown [id number] 2.16.8 [id number] 1940 Unknown [id number] 2.16.84 [id number] 1940 Unknown [id number] 2.16.84 [id number] 1939 Unknown [id number] 2.16.84 [id number] 1939 Unknown [id number] 2.16.84 [id number] 1939 Unknown [id number] 2.16.84 [id number] 1939 Unknown [id number] 2.16.84 0.1.274539.3.579.2.593 1939 Unknown [id number] 2.16.84 0.1.639113.3.579.2.593 1939 Unknown [id number] 2.16.84 [id number] 1939 Unknown [id number] 2.16.84 0.1.075559.3.579.2.593 1939 Unknown [id number] 2.16.84 0.1.949580.3.579.2.593 1939 Unknown [id number] 2.16.84 0.1.084233.3.579.2.593 1939 Unknown [id number] 2.16.8 40.1.673496.3.579.2.727 1939 Unknown [id number] 2.16.8 40.1.328165.3.579.2.727 1939 Unknown [id number] 2.16.8 40.1.741148.3.579.2.727 1939 Unknown [id number] 2.16.8 [id number] 1940 Unknown [id number] 2.16.8 40.1.747783.3.579.2.727 1939 Unknown [id number] 2.16.8 40.1.327383.3.579.2.727 1939 Unknown [id number] 2.16.8 40.1.696371.3.579.2.727 1939 Unknown [id number] 2.16.8 40.1.848498.3.579.2.727 1939 Unknown [id number] 2.16.8 40.1.974690.3.579.2.727 1939 Unknown [id number] 2.16.8 40.1.768766.3.579.2.727 1939 Unknown [id number] 2.16.8 40.1.682514.3.579.2.727 1939 Unknown [id number] 2.16.84 0.1.737392.3.579.2.1259 1939 Unknown [id number] 2.16.84 0.1.812473.3.579.2.1259 1939 Unknown [id number] 2.16.84 0.1.467406.3.579.2.1259 1939 Unknown [id number] 2.16.84 0.1.505177.3.579.2.1259 1939 Unknown [id number] 2.16.84 0.1.315048.3.579.2.1259 1939 Unknown [id number] 2.16.84 0.1.876003.3.579.2.1259 1939 Unknown [id number] 2.16.84 0.1.050275.3.579.2.1259 1939 Unknown [id number] 2.16.84 0.1.488180.3.579.2.1259 1939 Unknown [id number] 2.16.84 0.1.665367.3.579.2.1259 Unknown Social History Date Type Detail Facility Start: 03-31-2022 End: 10-14-2023 Tobacco smoking status Ex-smoker (finding) [facility] Tobacco smoking status Never [facility] Sex Assigned At Male [facility] Functional Status Date Assessment Result Facility 10-14-2023 Functional Status N/A [facility] 10-01-2023 Functional Status No [facility] 04-13-2023 Functional Status N/A [facility] 06-09-2022 Functional Status N/A [facility] 05-11-2022 Functional Status N/A [facility] Clinical Notes 03-31-2022 to 07-05-2024 Note Date & Type Note Facility 07-05-2024 Note [facility] Patient: Nadir Heredia; 84 y.o. Visit date: 07/05/24 Reason for today's visit: Follow up for CKD stage 3, Hypertension, Edema/ Fluid overload, and Electrolytes disturbances SUBJECTIVE: BACKGROUND: Nadir Heredia is a 84 y.o. male has a past medical history of Atrial fibrillation ([facility]), CHF (congestive heart failure) ([facility]), Chronic kidney disease, COPD (chronic obstructive pulmonary disease) ([facility]), Coronary artery disease, Diabetes mellitus ([facility]), Heart valve disease, Hypertension, Pericardial effusion, and Sleep apnea. History of paroxysmal atrial fibrillation maintained on anticoagulation with Eliquis, aortic stenosis, renal artery stenosis, and hypertension. He had stenting of the left renal artery from the left radial approach on 05/01/2015 (Express SD 6 mm x 18 mm stent). He was admitted to the [facility] in August 2022 due to hyponatremia, hyperkalemia and acute kidney injury, leukocytosis secondary to COVID-19 causing dehydration Today 07/05/24 patient presents for a follow-up visit: Patient presents for a follow up visit. Feeling well, no major complaints or issues. He reports lower extremity edema has improved and has increased urinary frequency with lasix which he takes twice a day. Blood pressure & heart rate: Visit Vitals BP 172/79 (BP Location: Left arm, Patient Position: Sitting) Pulse 73 Resp 14 He takes He takes Labetalol 300 mg tid, Clonidine 0.1 mg bid, He also takes Tamsulosin 0.4 mg daily. He takes Furosemide 80 mg in AM and 40 mg in PM. Hydralazine was discontinued after he was noted to have pericardial effusion per Cardiology. Blood pressure at home ranges 110/68 to 140/70 mm of Hg. OBJECTIVE: Visit Vitals BP 172/79 (BP Location: Left arm, Patient Position: Sitting) Pulse 73 Resp 14 Ht 1.854 m (6' 1 ) Wt 87.5 kg (193 lb) BMI 25.46 kg/m??? Smoking Status Former BSA 2.12 m??? Physical Exam Constitutional: General: He is [...] Neck supple. No tenderness. Right lower leg: No edema. Left lower leg: No edema. Lymphadenopathy: Cervical: No cervical adenopathy. Skin: Coloration: Skin is not jaundiced or pale. Findings: No erythema, lesion or rash. Neurological: General: No focal deficit present. Mental Status: He is alert and oriented to person, place, and time. Sensory: No sensory deficit. Motor: No weakness. Psychiatric: Mood and Affect: Mood normal. Recent Labs I have reviewed the patient's most recent labs as listed below: Labs done on 06/19/2024 reviewed: Hb 15.3, Glucose 226, BUN 32, Serum Creatinine 1.62, Na 145, K 4.1, Ca 9.2, Phos 3.9, Mg 2.1, bicarb 29.8, Albumin 3.4, Urine Protein / Creatinine ratio 0.15. HOME MEDICATIONS & PAST MEDICAL/SOCIAL/FAMILY HISTORY: Home medications Outpatient Encounter Medications as of 07/05/2024 Medication Sig Dispense Refill acyclovir (Zovirax) 400 [...] by oral route. cholecalciferol (Vitamin D3) 25 MCG (1000 units) tablet Take 2,000 Units by mouth in the morning. cloNIDine (Catapres) 0.1 mg tablet Take 1 tablet by mouth in the morning and at bedtime. dicyclomine (Bentyl) 10 mg capsule Take 10 mg by mouth in the morning, at noon, in the evening, and at bedtime. empagliflozin (Jardiance) 10 mg Take 1 tablet by mouth in the morning. ezetimibe (Zetia) 10 mg tablet Take 1 tablet every day by oral route. ferrous sulfate 325 (65 Fe) MG tablet Take 65 mg by mouth with breakfast. furosemide (Lasix) 40 mg tablet Take 1 tablet (40 mg) by mouth in the morning and at bedtime. (Patient taking differently: Take 40 mg by mouth two times daily. Takes 80mg in the AM, 40mg in the PM) 180 tablet 3 glimepiride (Amaryl) 4 mg tablet Take 1 tablet by mouth in the morning and at bedtime. labetalol (Normodyne) 300 mg tablet Take 300 mg by mouth three times daily. magnesium oxide (Mag-Ox) 250 mg magnesium tablet Take 250 mg by mouth. omeprazole (PriLOSEC) [address] capsule Take 20 mg by mouth before breakfast. Do not crush or chew. p (more content not included)... [facility] 06-07-2024 Note Attestation signed by Ruthie Linda [...] of Medicine, [facility] Sciences. [facility] Patient: Nadir Heredia; 84 y.o. Visit date: 06/07/24 Reason for today's visit: Follow up for CKD stage 3, Hypertension, Edema/ Fluid overload, and Electrolytes disturbances SUBJECTIVE: BACKGROUND: Nadir Heredia is a 84 y.o. male has a past medical history of Atrial fibrillation ([facility]), CHF (congestive heart failure) ([facility]), Chronic kidney disease, COPD (chronic obstructive pulmonary disease) ([facility]), Coronary artery disease, Diabetes mellitus ([facility]), Heart valve disease, Hypertension, Pericardial effusion, and Sleep apnea. History of paroxysmal atrial fibrillation maintained on anticoagulation with Eliquis, aortic stenosis, renal artery stenosis, and hypertension. He had stenting of the left renal artery from the left radial approach on 05/01/2015 (Express SD 6 mm x 18 mm stent). He was admitted to the [facility] in August 2022 due to hyponatremia, [...] (Vitamin D3) 25 (more content not included)... [facility] 06-05-2024 Note [place] [facility] - [facility] Subjective Nadir Heredia is a [...] diuretic therapy. He was admitted to the [facility] in August 2022 due to hyponatremia, hyperkalemia and acute kidney injury, leukocytosis secondary to COVID-19 causing dehydration. I saw him on 05/24/2023 and the office and he had significant evidence of volume overload by exam and echocardiogram. I intensified his diuretic regimen. He ended up getting admitted to the [facility] with acute heart failure exacerbation and [...] and 2+ o (more content not included)... [facility] 03-03-2024 Note [place] [facility] - [facility] Subjective Nadir Heredia is a [...] extremity edema. He was admitted to the [facility] in August 2022 due to hyponatremia, hyperkalemia and acute kidney injury, leukocytosis secondary to COVID-19 causing dehydration. I saw him on 05/24/2023 and the office and he had significant evidence of volume overload by exam and echocardiogram. I intensified his diuretic regimen. He ended up getting admitted to the [facility] with acute heart failure exacerbation and [...] Musculoskeletal: General: N (more content not included)... [facility] 11-17-2023 Note Attestation signed by Ruthie Linda MD at 11/21/2023 6:55 PM I saw, interviewed, examined and evaluated the patient with Nephrology fellow, Dr. Dana Aparicio. I participated in the medical management of the patient. I reviewed the fellow's note and agree with the fellow's documentation in the note. Ruthie Linda MD Faculty, Division of Nephrology, Department of Medicine, [facility]. [facility] Patient: Nadir Heredia; 83 y.o. Visit date: 11/17/23 Reason for today's visit: Follow up for CKD stage 3, Hypertension, Edema/ Fluid overload, and Electrolytes disturbances SUBJECTIVE: BACKGROUND: Nadir Heredia is a 83 y.o. male has a past medical history of Atrial fibrillation ([facility]), CHF (congestive heart failure) ([facility]), Chronic kidney disease, COPD (chronic obstructive pulmonary disease) ([facility]), Coronary artery disease, Diabetes mellitus ([facility]), Heart valve disease, Hypertension, Pericardial effusion, and Sleep apnea. History of paroxysmal atrial fibrillation maintained on anticoagulation with Eliquis, aortic stenosis, renal artery stenosis, and hypertension. He had stenting of the left renal artery from the left radial approach on 05/01/2015 (Express SD 6 mm x 18 mm stent). He was admitted to the [facility] in August 2022 due to hyponatremia, [...] place, and time (more content not included)... [facility] 10-14-2023 Hospital Discharge instructions Patient Education [...] as fried or sweet foods. These include omani fries, hamburgers, cookies, candies, and soda. Drink enough fluid to keep your urine pale yellow. General instructions Exercise regularly or as told by your health care provider. Try to do 150 minutes of moderate exercise each week. Use the bathroom when you have the urge to go. Do not hold it in. Take jvfi-xai-gnrdzfd and prescription medicines only as told by [...] to keep your urine pale yellow. Take ffjy-ubv-ctxmjyo and prescription medicines only as told by your health care provider. This includes any fiber supplements. This information is not intended to replace advice given to you by your health care provider. Make sure you discuss any questions you have with your health care provider. Document Revised: 09/18/2020 Document Reviewed: 09/18/2020 [employer] Patient Education 2022 Tã Em Bé. Follow Up Care 10/01/2023 12:57:46 With:Nereyda Gomez CNP Address: When:1 month [facility] 10-01-2023 Hospital Discharge instructions Patient [...] Bulgur wheat. Millet. Quinoa. Bran muffins. Popcorn. Casselberry wafer crackers. Meats and other proteins Chenoa beans, kidney beans, and mendez beans. Soybeans. [...] Cream cheese. Sour cream. Fats and oils [place]. Beverages Soft drinks. Other foods Cakes and [...] provider. Document Revised: 03/06/2021 Document Reviewed: 03/06/2021 [employer] Patient Education 2022 Tã Em Bé. Follow Up Care 09/20/2023 08:43:45 With:Nereyda Gomez CNP Address:Unknown When: Unknown [facility] 09-17-2023 Note [place] [facility] - [facility] Subjective Nadir Heredia is a [...] extremity edema. He was admitted to the [facility] in August 2022 due to hyponatremia, hyperkalemia and acute kidney injury, leukocytosis secondary to COVID-19 causing dehydration. I saw him on 05/24/2023 and the office and he had significant evidence of volume overload by exam and echocardiogram. I intensified his diuretic regimen. He ended up getting admitted to the [facility] with acute heart failure exacerbation and [...] Allergies Allergen Reactions Iodinated Contrast Media Nitroglycerin Ussyouz-Osc-Kbc Reductase Inhibitors Medications Current Outpatient Medications: (more content not included)... [facility] 08-31-2023 Note Patient: Nadir lin Procedure Information Date/Time: 08/31/23 1300 Procedure: TRANSESOPHAGEAL ECHO (MARK) Location: [email or web address] Vascular Lab Clinical information reviewed: Allergies Meds Physical Exam Airway Mallampati: III TM distance: >3 FB Cardiovascular Rhythm: regular Rate: normal (+) murmur Dental Pulmonary Breath sounds clear to auscultation Abdominal Abdomen: soft Anesthesia Plan ASA 4 (Conscious sedation) Anesthetic plan and risks discussed with patient. Use of blood products discussed with patient who. Additional Equipment Requests [facility] 07-21-2023 Note [place] [facility] - [facility] Subjective Nadir Heredia is a [...] extremity edema. He was admitted to the [facility] in August 2022 due to hyponatremia, hyperkalemia and acute kidney injury, leukocytosis secondary to COVID-19 causing dehydration. I saw him on 05/24/2023 and the office and he had significant evidence of volume overload by exam and echocardiogram. I intensified his diuretic regimen. He ended up getting admitted to the [facility] with acute heart failure exacerbation and [...] Allergies Allergen Reactions Iodinated Contrast Media Nitroglycerin Midjabo-Nzt-Zea Reductase Inhibitors Medications Current Outpatient Medications: acyclovir [...] every day by (more content not included)... [facility] 06-10-2023 Hospital Discharge instructions Patient Education [...] hard liquor (44 mL). General instructions Take bvlu-jtb-plnuvta and prescription medicines only as told by [...] provider. Document Revised: 02/19/2021 Document Reviewed: 02/19/2021 [employer] Patient Education 2022 Cordium Links Follow Up Care 04/13/2023 14:39:27 With:Nereyda Gomez CNP Address: When:3 months [facility] 04-13-2023 Hospital Discharge instructions Patient [...] including vitamins, herbs, eye drops, creams, and jiaq-srl-bvyzxmr medicines. Any problems you or family members [...] provider tells you to take them. Taking bkjk-oyn-mvdhphy medicines, vitamins, herbs, and supplements. General instructions [...] provider. Document Revised: 10/26/2022 Document Reviewed: 06/24/2022 [employer] Patient Education 2022 T[address] Em Bé. Follow Up Care 04/09/2023 11:27:16 With:Patricia DOOR BUILDER, Nereyda A Address: When:1 month [facility] 04-13-2023 Note Radiology Colonoscopy, Adult [...] including vitamins, herbs, eye drops, creams, and wuct-wjm-dnpleeu medicines. ? Any problems you or family [...] tells you to take them. ? Taking kgao-ukf-djukoej medicines, vitamins, herbs, and supplements. General instructions [...] for cancer cells. (more content not included)... [facility] 07-18-2022 Note EXAM: US CHANI DOP [...] authenticated by: LI ROBERTS Date: 2022-07-18 09:05 [facility] 06-09-2022 Hospital Discharge instructions Patient [...] per serving. Talk with a diet and director of food and nutrition services (dietitian) if you have questions about specific [...] Bulgur wheat. Millet. Quinoa. Bran muffins. Popcorn. Casselberry wafer crackers. Meats and other proteins Chenoa, kidney, and mendez beans. Soybeans. Split peas. [...] Cream cheese. Sour cream. Fats and oils [place]. Beverages Soft drinks. Other foods Cakes and [...] 11/01/2006 Document Revised: 09/05/2018 Document Reviewed: 09/05/2018 [employer] Patient Education 2020 Tã Em Bé. 06/09/2022 10:13:34 Hemorrhoids Hemorrhoids Hemorrhoids are swollen [...] 3 times a day. General instructions Take odod-udy-fdvkmvm and prescription medicines only as told by [...] 10/29/2001 Document Revised: 03/29/2020 Document Reviewed: 03/23/2019 [employer] Patient Education 2020 [employer] 06/09/2022 10:13:31 Diverticulosis Diverticulosis Diverticulosis is [...] overweight. Not getting enough exercise. Smoking. Taking msmb-kbe-ifxznmg pain medicines, like aspirin and ibuprofen. Having [...] health care provider or your diet and director of food and nutrition services (dietitian). ?Take a fiber supplement or probiotic, if your health care provider approves. Take hoan-kby-esbjdij and prescription medicines only as told by [...] 07/29/2005 Document Revised: 10/14/2018 Document Reviewed: 09/20/2017 [employer] Patient Education 2020 Tã Em Bé. 06/09/2022 10:13:30 Colon Polyps Colon Polyps Polyps [...] 07/28/2005 Document Revised: 02/16/2019 Document Reviewed: 02/16/2019 [employer] Patient Education 2020 Tã Em Bé. Follow Up Care 05/13/2022 14:18:17 With:Nereyda Gomez CNP Address: When:1 year only if needed [facility] 05-11-2022 Evaluation + Plan note Extrac fernando from: Title:Anesthesia post op endo Author:Jeffrey Gr MD Date:05/11/22 Plan Transfer/ Discharge: Patient can be discharged from PACU when criteria met. Condition good. Extracted from: Title:Anesthesia Pre-Op endo 2 Author:Jeffrey Gr MD Date:05/11/22 Plan [place] [employer] Anesthesiologists (ASA) physical status classification: [...] lungs, allergic reactions, and .. [facility]06-27-2022 Hospital Discharge instructions Patient Education [...] 07/28/2005 Document Revised: 02/16/2019 Document Reviewed: 02/16/2019 [employer] Patient Education 2020 Tã Em Bé. 05/11/2022 11:13:39 Diverticulosis MAGR (CUSTOM) Diverticulosis Many [...] unsweetened, w/added ascorbic acid 1 cup 0.5 [place] 1 cup 0.7 Vegetables Cooked Green beans 1 cup 4.0 Carrots 1/2 cup sliced 2.3 Peas 1 cup 8.8 Potato (baked, with skin) 1 medium potato 3.8 Raw [place] (with peel) 1 cucumber 1.5 Lettuce 1 [...] 8.7 Peanuts 1/2 cup 7.9 Chart from UpToDate 2013. SEEK IMMEDIATE MEDICAL CARE IF: You [...] Information adapted from: ExitCare Patient Information 2009 Reaction. [employer] 2012 http://www.[employer]/contents/qrheymdselgl-qzwspnv-unnjlc-the-basics Follow Up Care 03/31/2022 10:27:32 With:Napoleon MENDEZ Address: [address] [place] [address] Business (1) When: Unknown Comments:office will call for follow up [facility]05-17-2022 Hospital Discharge instructions Patient Education [...] including vitamins, herbs, eye drops, creams, and tsrw-ved-bqavfxq medicines. Any problems you or family members [...] 10/29/2001 Document Revised: 08/24/2018 Document Reviewed: 01/12/2017 [employer] Patient Education 2020 Tã Em Bé. Follow Up Care 03/23/2022 12:11:50 With:Nereyda Gomez CNP Address: When:1 month [facility] Evaluation + Plan note Future Appointments Appointment Date:05/25/2022 08:45:00 AM Scheduled Provider: Location:[facility] Appointment Type:Surgery FT [facility] Evaluation + Plan note Future Appointments Appointment Date:06/10/2023 10:40:00 AM Scheduled Provider:Nereyda Gomez CNP [facility] Appoint[facility] Type:[facility] Follow Up Future Scheduled Tests Laboratory* Fecal WBC Lactoferrin 04/13/23 * Giardia lamblia, Direct Detection EIA 04/13/23 * O & P Exam, Routine 04/13/23 * Clostridium Difficile PCR 04/13/23 * Enteric Panel by PCR 04/13/23 [facility] Evaluation + Plan note Future Appointments Appointment Date:06/10/2023 10:40:00 AM Scheduled Provider:Nereyda Gomez CNP Location:[facility] Appointment Type:[facility] Follow Up Diagnostic Tests Pending * O & P Exam, Routine 04/15/23 * Giardia lamblia, Direct Detection EIA 04/15/23 [facility] Future App[facility]ments Appointment Date:09/13/2023 10:40:00 AM Scheduled Provider:Nereyda Gomez CNP Location[facility] Appointment Type:[facility] Follow Up [facility] Evaluation + Plan note Future Appointments Appointment Date:10/14/2023 02:20:00 PM Scheduled Provider:Nereyda Gomez CNP Location[facility] Appointment Type:[facility] Follow Up Future Scheduled Tests Laboratory* CBC w/ Auto Diff 10/01/23 * Comprehensive Metabolic Panel 10/01/23 * Thyroid Stimulating Hormone 10/01/23 [facility] evaluation + Plan note Future Appointments Appointment Date:12/09/2023 02:00:00 PM Scheduled Provider:Nereyda Gomez CNP Location[facility] Appointment Type:[facility] Follow Up Future Scheduled Tests Laboratory* CBC w/ Auto Diff 10/01/23 * Comprehensive Metabolic Panel 10/01/23 * Thyroid Stimulating Hormone 10/01/23 [facility] Hospital course Narrative No data available for this section [facility] Hospital Discharge instructions No data available for this section [facility] No data available for this section [facility] Summary Purpose Family History No [...] section and content) DATE CREATED AUTHOR 02/09/2019 [facility] DATE CREATED AUTHOR AUTHOR'S ORGANIZ ATION 03/28/2023 [facility] DATE CREATED AUTHOR AUTHOR'S ORGANIZ ATION 01/24/2024 [facility] DATE CREATED AUTHOR AUTHOR'S ORGANIZ ATION 07/12/2024 [facility] DATE CREATED AUTHOR AUTHOR'S ORGANIZ ATION 08/05/2024 [facility] EPIC Care Team (unrecognized sect ion and content) Personnel Name: Van Sung MD Address: [address] [place] [address] Personnel Name: Van Sung MD Address: [address] [place] [address] Personnel Name: Van Sung MD Address: Address: [address] [place] [address] Personnel Name: Van Sung MD Address: Address: [address] [place] [address] Personnel Name: Van Sung MD Address: Address: [address] [place] [address] [place] [address]- Personnel Name: Van Sung MD Address: Address: [address] [place] [address] [place], [place] [address] Personnel Name: Van Sung MD Address: Address: [address] [place], [place] [address], [place] [address]- Personnel Name: Van Sung MD Address: Address: [address] [place], [place] [address] [id number] Personnel Name: Van Sung MD Address: Address: [address] [place], [place] [address] [id number] Personnel Name: Van Sung MD Address: Address: [address] [place] [address] FOR RECORDS PERTAINING TO PATIENTS WHO ARE [...] PRIMARY CLINICAL RECORDS. [facility] [employer] [facility]. provides no warranty or guarantee of the accuracy or completeness of information in this document.
--- NOTE | 2024-08-06 11:05 | ED_ITS ---
HPI HPI - General Adult General Chief complaint: Urogenital-Male Stated complaint: URINATION PROBLEMS Time Seen by Provider: 08/06/24 10:39 Source: patient and family Mode of arrival: walk-in Limitations: no limitations History of Present Illness HPI narrative: 84-year-old male to the emergency for genital issue. He is a poor historian has difficulty explaining the issue. He states he has been urinating every 30 minutes. He also noted some redness on the shaft of his penis. No fever or vomiting and he appears to have had this for the last 2 or 3 days. Related Data Home Medications ?Medication ?Instructions ?Recorded ?Confirmed ACETAMINOPHEN PM 1 tab PO BEDTIME 05/31/23 05/31/23 Vitamin B-Complex 1 tab PO .NOON 05/31/23 05/31/23 acyclovir 400 mg tablet 400 mg PO Q12H 05/31/23 10/10/23 alogliptin 25 mg tablet 25 mg PO DAILY 05/31/23 05/31/23 apixaban 2.5 mg tablet 2.5 mg PO BID 05/31/23 10/10/23 aspirin 81 mg tablet,delayed 81 mg PO DAILY 05/31/23 10/10/23 release (Adult Low Dose Aspirin) cholecalciferol (vitamin D3) 50 2,000 unit PO DAILY 05/31/23 05/31/23 mcg (2,000 unit) tablet (Thera-D) clonidine HCl 0.1 mg tablet 0.1 mg PO Q12H 05/31/23 10/10/23 dicyclomine 10 mg capsule 10 mg PO QID PRN abdominal pain 05/31/23 10/10/23 empagliflozin 25 mg tablet 25 mg PO DAILY 05/31/23 05/31/23 (Jardiance) ergocalciferol (vitamin D2) 1,250 50,000 unit PO .weekly 05/31/23 10/10/23 mcg (50,000 unit) capsule ezetimibe 10 mg tablet 10 mg PO DAILY 05/31/23 10/10/23 ferrous sulfate 325 mg (65 mg 325 mg PO BID 05/31/23 05/31/23 iron) tablet furosemide 20 mg tablet 20 mg PO BID 05/31/23 10/10/23 furosemide 40 mg tablet 40 mg PO Q12H 05/31/23 05/31/23 gabapentin 600 mg PO .1 QAM AND 2 QPM 05/31/23 05/31/23 glimepiride 4 mg tablet 8 mg PO DAILY 05/31/23 10/10/23 hydralazine 100 mg tablet 100 mg PO Q12H 05/31/23 10/10/23 hydrocortisone-pramoxine 2.5 %-1 % 1 applic topical TID 05/31/23 05/31/23 rectal cream labetalol 300 mg tablet 300 mg PO Q12H 05/31/23 10/10/23 magnesium See Rx Instructions PO BID 05/31/23 05/31/23 metoclopramide HCl 5 mg tablet 5 mg PO BEDTIME 05/31/23 10/10/23 omeprazole 20 mg capsule,delayed 20 mg PO BID 05/31/23 10/10/23 release pioglitazone 45 mg tablet 45 mg PO DAILY 05/31/23 10/10/23 primidone 50 mg tablet 50 mg PO Q12H 05/31/23 10/10/23 tamsulosin 0.4 mg capsule 0.4 mg PO Q24H 05/31/23 10/10/23 Previous Rx's ?Medication ?Instructions ?Recorded clotrimazole-betamethasone 1 1 applic topical BID #15 grams 08/06/24 %-0.05 % topical cream mupirocin calcium 2 % topical cream 1 applic topical TID #30 grams 08/06/24 Allergies Allergy/AdvReac Type Severity Reaction Status Date / Time nitroglycerin Allergy Intermediate Hypotension Verified 08/06/24 10:42 Iodinated Contrast Media AdvReac Intermediate renal Verified 08/06/24 10:42 problem Opioid HPI Opioid Management Most Recent Opioid Data: No Data to Display Review of Systems ROS Narrative Not obtainable, age and poor historian [facility] Medical History (Updated 08/06/24 @ 12:13 by Flaco Haynes MD) History of diverticulosis ?Z87.19 - Personal history of other diseases of the digestive system (ICD-10) History of sleep apnea ?Z86.69 - Personal history of other diseases of the nervous system and sense organs (ICD-10) Diabetes ?E11.9 - Type 2 diabetes mellitus without complications (ICD-10) History of hypertension ?Z86.79 - Personal history of other diseases of the circulatory system (ICD- 10) History of gastroesophageal reflux (GERD) ?Z87.19 - Personal history of other diseases of the digestive system (ICD-10) History of asthma ?Z87.09 - Personal history of other diseases of the respiratory system (ICD- 10) Surgical History (Updated 10/10/23 @ 08:33 by Oscar Jewell) History of cardiac catheterization ?Z98.890 - Other specified postprocedural states (ICD-10) History of cholecystectomy ?Z90.49 - Acquired absence of other specified parts of digestive tract (ICD- 10) Social History Smoking status: Never smoker Little interest or pleasure in doing things: not at all Feeling down, depressed, or hopeless: several days Exam Narrative Exam Narrative: Nurses note and vital signs reviewed and patient is not hypoxic. General: The patient appears in no apparent distress. Patient is resting comfortably on cart. Skin: Warm, dry, no pallor noted. There is no rash noted. Head: Normocephalic, atraumatic Eye: Normal conjunctiva, no drainage Ears, Nose, Mouth, and Throat: oral mucosa is moist. Nares patent. Cardiovascular: Regular Rate and Rhythm Respiratory: Patient is in no distress, no accessory muscle use, lungs are clear to auscultation, no wheezing, rales or rhonchi Back: non-tender GI: Soft and nontender : He has erythema at the junction of the glans and shaft of the penis. No purulent drainage. Musculoskeletal: The patient has no evidence of calf tenderness, no pitting edema, symmetrical pulses noted bilaterally Neurological: Awake and alert Psychiatric: Cooperative Constitutional Vital Signs, click to edit/add: Last Vital Signs Temp 98.5 F 08/06/24 10:42 Pulse 89 08/06/24 10:42 Resp 18 08/06/24 10:42 BP 175/98 H 08/06/24 10:42 Pulse Ox 96 08/06/24 10:42 O2 Del Method Room Air 08/06/24 10:42 Course Vital Signs Vital signs: Vital Signs Temperature 98.5 F 08/06/24 10:42 Pulse Rate 89 08/06/24 10:42 Respiratory Rate 18 08/06/24 10:42 Blood Pressure 175/98 H 08/06/24 10:42 Pulse Oximetry 96 08/06/24 10:42 Oxygen Delivery Method Room Air 08/06/24 10:42 Temperature 98.5 F 08/06/24 10:42 Pulse Rate 89 08/06/24 10:42 Respiratory Rate 18 08/06/24 10:42 Blood Pressure 175/98 H 08/06/24 10:42 Pulse Oximetry 96 08/06/24 10:42 Oxygen Delivery Method Room Air 08/06/24 10:42 Medical Decision Making MDM Narrative Medical decision making narrative: Blood work is nonspecific and UA shows no evidence of UTI. He will be placed on Lotrisone and Bactroban. He reports that his penis often retracts into his body for the last few months so he is being referred to urology for that issue. Treatment diagnosis and follow-up were discussed with the patient and his family. Differential Diagnosis Differential Diagnosis: Balanitis, cellulitis, fungal infection, UTI Lab Data Lab results reviewed: Yes I reviewed the patient's lab results Labs: Lab Results 08/06/24 08/06/24 Range/Units 10:55 11:05 WBC 7.9 (4.0-11.0) 10^3/uL RBC 4.51 L (4.70-6.10) 10^6/uL Hgb 15.2 (14.0-18.0) g/dL Hct 45.5 (42.0-54.0) % MCV 100.9 H (80.0-94.0) fL MCH 33.7 (25.9-34.0) pg MCHC 33.4 (29.9-35.2) g/dL RDW 13.9 (11.0-15.0) % Plt Count 189 (150-450) 10^3/uL MPV 11.7 (9.5-13.5) fL Neut % (Auto) 78.6 H (43.0-75.0) % Lymph % (Auto) 10.2 L (20.5-60.0) % [place] % (Auto) 8.2 (1.7-12.0) % Eos % (Auto) 2.0 (0.9-7.0) % Baso % (Auto) 0.5 (0.2-2.0) % Neut # (Auto) 6.2 (1.4-6.5) 10^3/uL Lymph # (Auto) 0.8 L (1.2-3.8) 10^3/uL [place] # (Auto) 0.6 (0.3-0.8) 10^3/uL Eos # (Auto) 0.2 (0.0-0.7) 10^3/uL Baso # (Auto) 0.0 (0.0-0.1) 10^3/uL Abs Immat Gran (auto) 0.04 H (0.00-0.03) 10^3/uL Imm/Tot Granulo (auto) 0.5 (0.0-0.5) % Sodium 138 (136-145) mmol/L Potassium 4.0 (3.5-5.1) mmol/L Chloride 102 (98-107) mmol/L Carbon Dioxide 28.4 (21.0-32.0) mmol/L Anion Gap 11.6 BUN 27.0 H (7.0-18.0) mg/dL Creatinine 1.56 H (0.70-1.30) mg/dL Est GFR ( Amer) 52 L (>=60) Est GFR (Non-Af Amer) 43 L (>=60) BUN/Creatinine Ratio 17.3 Glucose 245 H (74-106) mg/dL Calcium 9.1 (8.5-10.1) mg/dL Urine Color Lt. yellow (YELLOW) Urine Clarity Clear (CLEAR) Urine pH 7.0 (5.0-9.0) Ur Specific [place] 1.010 (1.005-1.025) Urine Protein Negative (NEG/TRACE) mg/dL Urine Glucose (UA) >=1000 A (NEGATIVE) mg/dL Urine Ketones Negative (NEGATIVE) mg/dL Urine Occult Blood Trace-i (NEGATIVE) Urine Nitrite Negative (NEGATIVE) Urine Bilirubin Negative (NEGATIVE) Urine Urobilinogen 0.2 (0.2-1.0) EU/dL Ur Leukocyte Esterase Negative (NEGATIVE) Urine RBC 0-2 (0-2) #/HPF Urine WBC None seen (NONE SEEN) #/HPF Ur Squamous Epith Cells None seen (NONE/RARE) #/LPF Urine Crystals None seen (None Seen) #/HPF Urine Bacteria None seen (NONE SEEN) #/HPF Urine Casts None seen (NONE SEEN) #/LPF Urine Mucus None seen (NONE SEEN) Discharge Plan Discharge Chief Complaint: Urogenital-Male Clinical Impression: Balanitis Patient Disposition: Home, Self-Care Time of Disposition Decision: 12:13 Condition: Good Mode of Transportation: Private Vehicle Prescriptions / Home Meds: New mupirocin calcium 2 % cream 1 applic topical TID Qty: 30 0RF clotrimazole-betamethasone 1-0.05 % cream 1 applic topical BID Qty: 15 0RF No Action acyclovir 400 mg tablet 400 mg PO Q12H clonidine HCl 0.1 mg tablet 0.1 mg PO Q12H dicyclomine 10 mg capsule 10 mg PO QID PRN (Reason: abdominal pain) Hold Instructions: DC ergocalciferol (vitamin D2) 1,250 mcg (50,000 unit) capsule 50,000 unit PO .weekly ezetimibe 10 mg tablet 10 mg PO DAILY ferrous sulfate 325 mg (65 mg iron) tablet 325 mg PO BID furosemide 40 mg tablet 40 mg PO Q12H glimepiride 4 mg tablet 8 mg PO DAILY Rx Instructions: AT NOON hydralazine 100 mg tablet 100 mg PO Q12H hydrocortisone-pramoxine 2.5-1 % cream 1 applic topical TID labetalol 300 mg tablet 300 mg PO Q12H metoclopramide HCl 5 mg tablet 5 mg PO BEDTIME omeprazole 20 mg capsule,delayed release(DR/EC) 20 mg PO BID pioglitazone 45 mg tablet 45 mg PO DAILY primidone 50 mg tablet 50 mg PO Q12H tamsulosin 0.4 mg capsule 0.4 mg PO Q24H gabapentin 600 mg 600 mg PO .1 QAM AND 2 QPM magnesium 500 mg See Rx Instructions PO BID Rx Instructions: 2 TABLETS orally twice a day; Jardiance 25 mg tablet 25 mg PO DAILY Vitamin B-Complex tablet 1 tab PO .NOON cholecalciferol (vitamin D3) [Thera-D] 50 mcg (2,000 unit) tablet 2,000 unit PO DAILY ACETAMINOPHEN PM tablet 1 tab PO BEDTIME aspirin [Adult Low Dose Aspirin] 81 mg tablet,delayed release (DR/EC) 81 mg PO DAILY furosemide 20 mg tablet 20 mg PO BID apixaban 2.5 mg tablet 2.5 mg PO BID alogliptin 25 mg tablet 25 mg PO DAILY Print Language: Maori Instructions: Latisha (ED) Referrals: Pj Sung MD [Primary Care Provider] - 1 week Mejia Iyer MD [Physician] - 1 week
[2024-08-06 11:25] LABS: Basophils Percent Auto 0.5 % (0.2-2.0); Eosinophils Absolute Auto 0.2 10^3/uL (0.0-0.7); Hematocrit 45.5 % (42.0-54.0); Hemoglobin 15.2 g/dL (14.0-18.0); Immature Granulocytes Abs Auto 0.04 10^3/uL (0.00-0.03); Immature Granulocytes Pct Auto 0.5 % (0.0-0.5); Lymphocytes Absolute Auto 0.8 10^3/uL (1.2-3.8); Lymphocytes Percent Auto 10.2 % (20.5-60.0); Mean Corpuscular HGB Conc 33.4 g/dL (29.9-35.2); Mean Corpuscular Hemoglobin 33.7 pg (25.9-34.0); Mean Corpuscular Volume 100.9 fL (80.0-94.0); Mean Platelet Volume 11.7 fL (9.5-13.5); Monocytes Absolute Auto 0.6 10^3/uL (0.3-0.8); Monocytes Percent Auto 8.2 % (1.7-12.0); Neutrophils Absolute Auto 6.2 10^3/uL (1.4-6.5); Neutrophils Percent Auto 78.6 % (43.0-75.0); Platelet Count 189 10^3/uL (150-450); Red Blood Count 4.51 10^6/uL (4.70-6.10); Red Cell Distribution Width 13.9 % (11.0-15.0); White Blood Count 7.9 10^3/uL (4.0-11.0)
[2024-08-06 11:25] LABS: Bilirubin Urine NEGATIVE (NEGATIVE); Blood Urine TRACE-I (NEGATIVE); Clarity Urine CLEAR (CLEAR); Color Urine LT. YELLOW (YELLOW); Glucose Urine UA >=1000 mg/dL (NEGATIVE); Ketones Urine NEGATIVE (NEGATIVE); Leukocyte Esterase Urine NEGATIVE (NEGATIVE); Nitrite Urine NEGATIVE (NEGATIVE); Protein Urine NEGATIVE (NEG/TRACE); Urobilinogen Urine 0.2 EU/dL (0.2-1.0)
[2024-08-06 11:38] LABS: Bacteria Urine NONE SEEN #/HPF (NONE SEEN); Cast Seen? NONE SEEN #/LPF (NONE SEEN); Crystals Seen? None Seen #/HPF (None Seen); Mucus Urine NONE SEEN (NONE SEEN); RBC Urine 0-2 #/HPF (0-2); Squamous Epithelial Cell Urine NONE SEEN #/LPF (NONE/RARE); WBC Urine NONE SEEN #/HPF (NONE SEEN)
[2024-08-06 11:39] LABS: Anion Gap 11.6; BUN Creatinine Ratio 17.3; Calcium 9.1 mg/dL (8.5-10.1); Carbon Dioxide 28.4 mmol/L (21.0-32.0); Chloride 102 mmol/L (98-107); Estimated GFR (African America 52 (>=60); Estimated GFR (Non-African Ame 43 (>=60); Glucose 245 mg/dL (74-106); Sodium 138 mmol/L (136-145)
[2024-08-06 13:06] VITALS: PULSE 64; O2SAT 95
== END 2024-08-06 12:38 | disposition home or self-care (01) ==
PROVIDERS: Emergency Provider Emergency Medicine; PCP Family Medicine
DX: N48.1 Balanitis (principal)
CPT/HCPCS: 36415; 80048; 81001; 85025; 99283

== ENCOUNTER 2024-08-16 08:51 | Observation (INO) | payer MEDICARE, SELFPAY ==
[2024-08-16] VITALS (17 sets, daily range): BP systolic 130–216; BP diastolic 68–100; PULSE 63–93; TEMP 36.5–36.9; O2SAT 91–96; BMI 25.8; BMI 25.5
--- NOTE | 2024-08-16 09:04 | ED.AMS1 ---
HPI - Altered Mental Status General Chief Complaint: Altered Mental Status Stated Complaint: ALTERED MENTAL Time Seen by Provider: 08/16/24 08:52 Source: patient Mode of arrival: walk-in History of Present Illness HPI narrative: Patient presents to ED complaining of altered mental status. says he woke up this morning at 6 AM completely normal. He took his medication and he had breakfast. The patient states he had a muffin for breakfast. He then went to the couch and the states he fell asleep. She said he fell into a deep sleep and she had trouble waking him up. When he did wake up he said he had to urinate and walked to the restroom. The said he was talking nonsensical and made it to the doorway of the bathroom and urinated on himself. She said this is not like him at all. She said he was not making sense in his words were not making sense and she got concerned so she brought him into the emergency room. Time of last known well at 8 AM. Patient currently is following commands alert and oriented x 3 making sense and he says he remembers all of this that happened. He denies any headache confusion vision changes. He denies any chest pain shortness of breath or abdominal pain. He does not have any complaints at this time. Patient does have a history of A-fib and is on Eliquis. Initial blood pressure was reading high but nurse rechecked it with a manual and he is 146/90. Denies trauma resting comfortably in the bed. MD complaint: Reports altered mental status and confusion Related Data Home Medications ?Medication ?Instructions ?Recorded ?Confirmed ACETAMINOPHEN PM 1 tab PO BEDTIME 05/31/23 08/16/24 Vitamin B-Complex 1 tab PO .NOON 05/31/23 08/16/24 acyclovir 400 mg tablet 400 mg PO DAILY 05/31/23 08/16/24 alogliptin 25 mg tablet 25 mg PO DAILY 05/31/23 08/16/24 apixaban 2.5 mg tablet 2.5 mg PO BID 05/31/23 08/16/24 aspirin 81 mg tablet,delayed 81 mg PO DAILY 05/31/23 08/16/24 release (Adult Low Dose Aspirin) cholecalciferol (vitamin D3) 50 2,000 unit PO DAILY 05/31/23 08/16/24 mcg (2,000 unit) tablet (Thera-D) clonidine HCl 0.1 mg tablet 0.1 mg PO Q12H 05/31/23 08/16/24 dicyclomine 10 mg capsule 10 mg PO QID PRN abdominal pain 05/31/23 08/16/24 empagliflozin 25 mg tablet 25 mg PO DAILY 05/31/23 08/16/24 (Jardiance) ergocalciferol (vitamin D2) 1,250 50,000 unit PO .weekly 05/31/23 10/10/23 mcg (50,000 unit) capsule ezetimibe 10 mg tablet 10 mg PO DAILY 05/31/23 08/16/24 ferrous sulfate 325 mg (65 mg 325 mg PO BID 05/31/23 08/16/24 iron) tablet furosemide 20 mg tablet 20 mg PO BID 05/31/23 08/16/24 furosemide 40 mg tablet 40 mg PO Q12H 05/31/23 08/16/24 glimepiride 4 mg tablet 8 mg PO DAILY 05/31/23 08/16/24 hydrocortisone-pramoxine 2.5 %-1 % 1 applic topical TID 05/31/23 05/31/23 rectal cream labetalol 300 mg tablet 300 mg PO Q12H 05/31/23 08/16/24 magnesium See Rx Instructions PO BID 05/31/23 08/16/24 metoclopramide HCl 5 mg tablet 5 mg PO BEDTIME 05/31/23 10/10/23 omeprazole 20 mg capsule,delayed 20 mg PO BID 05/31/23 08/16/24 release pioglitazone 45 mg tablet 45 mg PO DAILY 05/31/23 10/10/23 primidone 50 mg tablet 75 mg PO Q8H 05/31/23 08/16/24 tamsulosin 0.4 mg capsule 0.4 mg PO Q24H 05/31/23 08/16/24 pioglitazone 45 mg tablet (Actos) 45 mg PO DAILY 08/16/24 08/16/24 potassium chloride 20 mEq oral 20 meq PO DAILY 08/16/24 08/16/24 packet (Todd-Lei) Previous Rx's ?Medication ?Instructions ?Recorded clotrimazole-betamethasone 1 1 applic topical BID #15 grams 08/06/24 %-0.05 % topical cream mupirocin calcium 2 % topical cream 1 applic topical TID #30 grams 08/06/24 Allergies Allergy/AdvReac Type Severity Reaction Status Date / Time nitroglycerin Allergy Intermediate Hypotension Verified 08/06/24 10:42 Iodinated Contrast Media AdvReac Intermediate renal Verified 08/06/24 10:42 problem Review of Systems ROS Status of ROS 10 or more systems reviewed and unremarkable except as noted in history and below [facility] Medical History (Updated 08/16/24 @ 10:28 by Lotus Ace DO) History of diverticulosis ?Z87.19 - Personal history of other diseases of the digestive system (ICD-10) History of sleep apnea ?Z86.69 - Personal history of other diseases of the nervous system and sense organs (ICD-10) Diabetes ?E11.9 - Type 2 diabetes mellitus without complications (ICD-10) History of hypertension ?Z86.79 - Personal history of other diseases of the circulatory system (ICD-10) History of gastroesophageal reflux (GERD) ?Z87.19 - Personal history of other diseases of the digestive system (ICD-10) History of asthma ?Z87.09 - Personal history of other diseases of the respiratory system (ICD-10) Surgical History (Updated 10/10/23 @ 08:33 by Raulito Jewell) History of cardiac catheterization ?Z98.890 - Other specified postprocedural states (ICD-10) History of cholecystectomy ?Z90.49 - Acquired absence of other specified parts of digestive tract (ICD-10) Social History Smoking status: Never smoker Little interest or pleasure in doing things: not at all Feeling down, depressed, or hopeless: several days Exam Narrative Exam Narrative: Time Seen: [] Vital Signs: [Per nurse's notes.] General: [Alert] Skin: [Warm, dry, no rash.] Head: [Normocephalic, atraumatic.] Neck: [Supple, trachea midline.] Eye: [Pupils are equal, round and reactive to light, extraocular movements are intact, normal conjunctiva.] Ears, nose, mouth and throat: oral mucosa moist. Cardiovascular: [Regular rate and rhythm, no murmur.] Respiratory: [Lungs are clear to auscultation, respirations are non-labored, breath sounds are equal.] Chest wall: [No tenderness, no deformity.] Gastrointestinal: [Soft, nontender, non distended, normal bowel sounds.] MSK: 5 out of 5 muscle strength x 4 extremities no calf pain or edema Lymphatics: [No lymphadenopathy.] Psychiatric: [Cooperative, appropriate mood & affect.] Neurological: [Alert and oriented to person, place, time, and situation, no focal neurological deficit observed.] Constitutional Vital Signs, click to edit/add: Last Vital Signs Temp 98.0 F 08/16/24 08:59 Pulse 77 08/16/24 08:59 Resp 18 08/16/24 08:59 BP 146/90 H 08/16/24 09:07 Pulse Ox 94 L 08/16/24 08:59 O2 Del Method Room Air 08/16/24 08:59 Course Vital Signs Vital signs: Vital Signs Temperature 98.0 F 08/16/24 08:59 Pulse Rate 77 08/16/24 08:59 Respiratory Rate 18 08/16/24 08:59 Blood Pressure 193/100 H 08/16/24 08:59 Pulse Oximetry 94 L 08/16/24 08:59 Oxygen Delivery Method Room Air 08/16/24 08:59 Temperature 98.0 F 08/16/24 08:59 Pulse Rate 77 08/16/24 08:59 Respiratory Rate 18 08/16/24 08:59 Blood Pressure 146/90 H 08/16/24 09:07 Pulse Oximetry 94 L 08/16/24 08:59 Oxygen Delivery Method Room Air 08/16/24 08:59 MDM - Altered Mental Status MDM Narrative Medical decision making narrative: NIH stroke scale: Date/Time: [] Level of consciousness: _ 0 Current month and age: _0 Open and close eyes/reimbursement liaison release hand: _0 Best gaze: _0 Visual field testing: _0 Facial paresis: _0 Motor function left arm: _0 Motor function right arm: _0 Motor function left leg: _0 Motor function right leg: _0 Limb ataxia: _0 Sensory: _0 Best language: _0 Dysarthria: _0 Extinction and inattention: _0 Total Score: [] 0 (severe deficit > 22) Notes: [] NIH scale is 0. Symptoms have resolved and patient is back to baseline. No focal neurological deficits. Time of last known well 8 AM. No thrombolytics decision time 9:[address] scan was negative for acute findings. labs Relatively unchanged from baseline however his sugar was slightly elevated. Chest x-ray shows possible infiltrate versus pleural effusion. Patient's family does report possibly a mild cough but not productive. lactate normal, UA shows no urinary tract infection. I spoke to Dr. Sung who knows the pt well. He agrees with obs admit for AMS and speech difficulty. This may be due to a medication change, they recently increased his primidone. Pt and family are comfortable w care plan for admit. Dr. Sung will decide on abx for possible pneumonia. Pt is stable in ED. Manual BP is not severely elevated. Differential Diagnosis Differential diagnosis: Likely altered mental status, dementia, subarachnoid hemorrhage and sepsis Medical Records Attestation: I reviewed the patient's medical records. Lab Data Attestation: I reviewed the patient's lab results. Labs: Lab Results 08/16/24 08/16/24 08/16/24 Range/Units 08:59 09:00 09:05 WBC 9.6 (4.0-11.0) 10^3/uL RBC 4.65 L (4.70-6.10) 10^6/uL Hgb 15.7 (14.0-18.0) g/dL Hct 47.8 (42.0-54.0) % MCV 102.8 H (80.0-94.0) fL MCH 33.8 (25.9-34.0) pg MCHC 32.8 (29.9-35.2) g/dL RDW 14.2 (11.0-15.0) % Plt Count 193 (150-450) 10^3/uL MPV 11.4 (9.5-13.5) fL Neut % (Auto) 82.0 H (43.0-75.0) % Lymph % (Auto) 8.0 L (20.5-60.0) % Pierce % (Auto) 7.3 (1.7-12.0) % Eos % (Auto) 2.0 (0.9-7.0) % Baso % (Auto) 0.3 (0.2-2.0) % Neut # (Auto) 7.8 H (1.4-6.5) 10^3/uL Lymph # (Auto) 0.8 L (1.2-3.8) 10^3/uL Pierce # (Auto) 0.7 (0.3-0.8) 10^3/uL Eos # (Auto) 0.2 (0.0-0.7) 10^3/uL Baso # (Auto) 0.0 (0.0-0.1) 10^3/uL Abs Immat Gran (auto) 0.04 H (0.00-0.03) 10^3/uL Imm/Tot Granulo (auto) 0.4 (0.0-0.5) % PT 10.5 (9.0-11.6) sec INR 0.99 Sodium 138 (136-145) mmol/L Potassium 4.1 (3.5-5.1) mmol/L Chloride 101 (98-107) mmol/L Carbon Dioxide 26.9 (21.0-32.0) mmol/L Anion Gap 14.2 BUN 25.0 H (7.0-18.0) mg/dL Creatinine 1.71 H (0.70-1.30) mg/dL Est GFR ( Amer) 46 L (>=60 mL/min/1.73m^2) Est GFR (Non-Af Amer) 38 L (>=60 mL/min/1.73m^2) BUN/Creatinine Ratio 14.6 Glucose 338 H (74-106) mg/dL Lactate 1.8 (0.4-2.0) mmol/L Calcium 9.4 (8.5-10.1) mg/dL Total Bilirubin 0.6 (0.2-1.0) mg/dL AST 15 (15-37) U/L ALT 26 (16-63) U/L Alkaline Phosphatase 108 (46-116) U/L Troponin I High Sens 17.0 (4.0-76.1) pg/mL Total Protein 6.9 (6.4-8.2) g/dL Albumin 3.5 (3.4-5.0) g/dL Globulin 3.4 g/dL Albumin/Globulin Ratio 1.0 Urine Color (YELLOW) Urine Clarity (CLEAR) Urine pH (5.0-9.0) Ur Specific [place] (1.005-1.025) Urine Protein (NEG/TRACE) mg/dL Urine Glucose (UA) (NEGATIVE) mg/dL Urine Ketones (NEGATIVE) mg/dL Urine Occult Blood (NEGATIVE) Urine Nitrite (NEGATIVE) Urine Bilirubin (NEGATIVE) Urine Urobilinogen (0.2-1.0) EU/dL Ur Leukocyte Esterase (NEGATIVE) SARS-CoV-2 Ag (CV2AG) Negative (NEGATIVE) POC Glucose 292 H (74-106) mg/dL 08/16/24 Range/Units 09:54 WBC (4.0-11.0) 10^3/uL RBC (4.70-6.10) 10^6/uL Hgb (14.0-18.0) g/dL Hct (42.0-54.0) % MCV (80.0-94.0) fL MCH (25.9-34.0) pg MCHC (29.9-35.2) g/dL RDW (11.0-15.0) % Plt Count (150-450) 10^3/uL MPV (9.5-13.5) fL Neut % (Auto) (43.0-75.0) % Lymph % (Auto) (20.5-60.0) % Pierce % (Auto) (1.7-12.0) % Eos % (Auto) (0.9-7.0) % Baso % (Auto) (0.2-2.0) % Neut # (Auto) (1.4-6.5) 10^3/uL Lymph # (Auto) (1.2-3.8) 10^3/uL Pierce # (Auto) (0.3-0.8) 10^3/uL Eos # (Auto) (0.0-0.7) 10^3/uL Baso # (Auto) (0.0-0.1) 10^3/uL Abs Immat Gran (auto) (0.00-0.03) 10^3/uL Imm/Tot Granulo (auto) (0.0-0.5) % PT (9.0-11.6) sec INR Sodium (136-145) mmol/L Potassium (3.5-5.1) mmol/L Chloride (98-107) mmol/L Carbon Dioxide (21.0-32.0) mmol/L Anion Gap BUN (7.0-18.0) mg/dL Creatinine (0.70-1.30) mg/dL Est GFR ( Amer) (>=60 mL/min/1.73m^2) Est GFR (Non-Af Amer) (>=60 mL/min/1.73m^2) BUN/Creatinine Ratio Glucose (74-106) mg/dL Lactate (0.4-2.0) mmol/L Calcium (8.5-10.1) mg/dL Total Bilirubin (0.2-1.0) mg/dL AST (15-37) U/L ALT (16-63) U/L Alkaline Phosphatase (46-116) U/L Troponin I High Sens (4.0-76.1) pg/mL Total Protein (6.4-8.2) g/dL Albumin (3.4-5.0) g/dL Globulin g/dL Albumin/Globulin Ratio Urine Color Lt. yellow (YELLOW) Urine Clarity Clear (CLEAR) Urine pH 7.0 (5.0-9.0) Ur Specific [place] 1.010 (1.005-1.025) Urine Protein Negative (NEG/TRACE) mg/dL Urine Glucose (UA) >=1000 A (NEGATIVE) mg/dL Urine Ketones Negative (NEGATIVE) mg/dL Urine Occult Blood Negative (NEGATIVE) Urine Nitrite Negative (NEGATIVE) Urine Bilirubin Negative (NEGATIVE) Urine Urobilinogen 0.2 (0.2-1.0) EU/dL Ur Leukocyte Esterase Negative (NEGATIVE) SARS-CoV-2 Ag (CV2AG) (NEGATIVE) POC Glucose (74-106) mg/dL Imaging Data CT scan - head: Radiologist's impression: ITS Impressions Head CT 08/16/24 09:10 IMPRESSION: 1. No acute intracranial abnormality. MRI is more sensitive for the evaluation of acute ischemia. 2. Senescent changes. Electronically authenticated by: WERNER FERNANDEZ Date: 08/16/2024 09:22 Chest X-Ray 08/16/24 09:14 IMPRESSION: Progression of now moderate right basilar infiltrate and pleural effusion Moderate pulmonary vasculature congestion with underlying cardiomegaly Electronically authenticated by: RAULITO CORBETT Date: 08/16/2024 09:31 ECG Data Attestation: I personally reviewed and interpreted this ECG as follows: Interpretation: EKG INTERPRETATION Time: [] 902 Rate: [] 63 Rhythm: _ [] A-fib, rate controlled ST segments: _ [] T waves: _ [] Ectopy: _ [] P wave/SD interval: _ [] QRS interval: _ [] QT interval: _ [] Comparison: _ [] Comparison EKG date: [] Performed by: [self] Discharge Plan Discharge Chief Complaint: Altered Mental Status Clinical Impression: AMS (altered mental status), Difficulty with speech, Lethargy Patient Disposition: Admitted as Observation Time of Disposition Decision: 10:24 Condition: Fair Prescriptions / Home Meds: No Action pioglitazone [Actos] 45 mg tablet 45 mg PO DAILY potassium chloride [Klor-Con] 20 mEq packet 20 meq PO DAILY acyclovir 400 mg tablet 400 mg PO DAILY clonidine HCl 0.1 mg tablet 0.1 mg PO Q12H dicyclomine 10 mg capsule 10 mg PO QID PRN (Reason: abdominal pain) Hold Instructions: DC ergocalciferol (vitamin D2) 1,250 mcg (50,000 unit) capsule 50,000 unit PO .weekly ezetimibe 10 mg tablet 10 mg PO DAILY ferrous sulfate 325 mg (65 mg iron) tablet 325 mg PO BID furosemide 40 mg tablet 40 mg PO Q12H glimepiride 4 mg tablet 8 mg PO DAILY Rx Instructions: AT NOON hydrocortisone-pramoxine 2.5-1 % cream 1 applic topical TID labetalol 300 mg tablet 300 mg PO Q12H metoclopramide HCl 5 mg tablet 5 mg PO BEDTIME omeprazole 20 mg capsule,delayed release(DR/EC) 20 mg PO BID pioglitazone 45 mg tablet 45 mg PO DAILY primidone 50 mg tablet 75 mg PO Q8H tamsulosin 0.4 mg capsule 0.4 mg PO Q24H magnesium 500 mg See Rx Instructions PO BID Rx Instructions: 2 TABLETS orally twice a day; Jardiance 25 mg tablet 25 mg PO DAILY Vitamin B-Complex tablet 1 tab PO .NOON cholecalciferol (vitamin D3) [Thera-D] 50 mcg (2,000 unit) tablet 2,000 unit PO DAILY ACETAMINOPHEN PM tablet 1 tab PO BEDTIME aspirin [Adult Low Dose Aspirin] 81 mg tablet,delayed release (DR/EC) 81 mg PO DAILY furosemide 20 mg tablet 20 mg PO BID apixaban 2.5 mg tablet 2.5 mg PO BID alogliptin 25 mg tablet 25 mg PO DAILY mupirocin calcium 2 % cream 1 applic topical TID Qty: 30 0RF clotrimazole-betamethasone 1-0.05 % cream 1 applic topical BID Qty: 15 0RF Print Language: Upper Sorbian Referrals: Pj Sung MD [Primary Care Provider] - 1 week
[2024-08-16 09:07] LABS: Glucometer 292 mg/dL (74-106)
--- NOTE | 2024-08-16 09:10 | CT_ITS ---
The [address] [address] Patient Name: NADIR HEREDIA MRN: [id number] date: 1940 Sex: M Assigned Patient Location: ER Current Patient Location: ER Accession/Order Number: [id number] Exam Date: 08/16/2024 09:08 Report Date: 08/16/2024 09:22 At the request of: EDWIN PALOMARES Procedure: CT head/brain wo con EXAM: CT head/brain wo con HISTORY: ams COMPARISON: None. TECHNIQUE: Axial soft tissue and bone windows through the calvarium with coronal and sagittal reformats. CT dose reduction technique was used including Automated Exposure Control. Findings: No extra-axial fluid collection. No intra-axial or extra-axial bleed. No mass effect or midline shift. The thompson-white matter differentiation is preserved. There are white matter low attenuation which are nonspecific but commonly attributed to chronic small vessel ischemic disease. The brain parenchymal volume is reduced yet likely age-appropriate. The ventricles are nondilated. The basal cisterns are patent. The craniovertebral junction is unremarkable. CT/CT head/brain wo con IMPRESSION: 1. No acute intracranial abnormality. MRI is more sensitive for the evaluation of acute ischemia. 2. Senescent changes. Electronically authenticated by: WERNER FERNANDEZ Date: 08/16/2024 09:22
--- NOTE | 2024-08-16 09:10 | ECG_ITS ---
The [facility] Test Date: 2024-08-16 Pat Name: NADIR HEREDIA Department: Room: - Gender: Male Field Adjuster: : 1940 Requested By: VAN YOUSSEF Order Number: [id number] Reading MD: VAN YOUSSEF Measurements Intervals [place] Rate: 63 P: -[id number] NC: -14868 QRS: 4 QRSD: 102 T: 40 QT: 420 QTc: 427 Interpretive Statements 1210 Atrial fibrillation 3333 Anterolateral myocardial infarction, probably old 3433 Septal myocardial infarction, probably old 7300 Indeterminate axis 9150 abnormal ECG Compared to ECG 10/10/2023 06:55:21 Indeterminate axis now present ST (T wave) deviation no longer present Myocardial infarct finding still present Electronically Signed On 08-18-2024 6:48:37 EDT by VAN YOUSSEF
--- NOTE | 2024-08-16 09:14 | XR_ITS ---
The [address] [address] Patient Name: NADIR HEREDIA MRN: [id number] date: 1940 Sex: M Assigned Patient Location: ER Current Patient Location: ER Accession/Order Number: [id number] Exam Date: 08/16/2024 09:10 Report Date: 08/16/2024 09:31 At the request of: EDWIN PALOMARES Procedure: XR chest 1V EXAMINATION: XR chest 1V HISTORY: ams COMPARISON: 10/10/2023 TECHNIQUE: AP portable FINDINGS: LUNGS: Progression of right basilar infiltrate obscuring the hemidiaphragm and partially obscuring the heart border VASCULATURE: Moderately increased pulmonary vasculature, worsening since the prior exam. PLEURA: No pneumothorax. Right pleural effusion CARDIAC: Moderate stable cardiomegaly MEDIASTINUM: No visible mass or adenopathy. BONES: No fracture or visible bone lesion. OTHER: Negative. XR/XR chest 1V IMPRESSION: Progression of now moderate right basilar infiltrate and pleural effusion Moderate pulmonary vasculature congestion with underlying cardiomegaly Electronically authenticated by: RAULITO CORBETT Date: 08/16/2024 09:31
[2024-08-16 09:17] LABS: Basophils Percent Auto 0.3 % (0.2-2.0); Eosinophils Absolute Auto 0.2 10^3/uL (0.0-0.7); Hematocrit 47.8 % (42.0-54.0); Hemoglobin 15.7 g/dL (14.0-18.0); Immature Granulocytes Abs Auto 0.04 10^3/uL (0.00-0.03); Immature Granulocytes Pct Auto 0.4 % (0.0-0.5); Lymphocytes Absolute Auto 0.8 10^3/uL (1.2-3.8); Mean Corpuscular HGB Conc 32.8 g/dL (29.9-35.2); Mean Corpuscular Hemoglobin 33.8 pg (25.9-34.0); Mean Corpuscular Volume 102.8 fL (80.0-94.0); Mean Platelet Volume 11.4 fL (9.5-13.5); Monocytes Absolute Auto 0.7 10^3/uL (0.3-0.8); Monocytes Percent Auto 7.3 % (1.7-12.0); Neutrophils Absolute Auto 7.8 10^3/uL (1.4-6.5); Platelet Count 193 10^3/uL (150-450); Red Blood Count 4.65 10^6/uL (4.70-6.10); Red Cell Distribution Width 14.2 % (11.0-15.0); White Blood Count 9.6 10^3/uL (4.0-11.0)
--- OUTSIDE RECORDS SUMMARY | 2024-08-16 09:19 | XMS_ITS | CCD ---
Author Organization [facility] Care Team Providers Care Transcription Name Role Phone PHYSICIAN, DEFAULT Admitting Unavailable PHYSICIAN, DEFAULT Attending Unavailable VAN SUNG Primary Care Unavailable Van Sung Primary Care Physician HOY ., DR ARAUJO Primary Care Unavailable HOY ., DR ARAUJO Consulting Unavailable HOY ., DR ARAUJO Attending Unavailable HOY ., DR ARAUJO Admitting Unavailable ZIEBER, DR CLOVER Zimmer Consulting Unavailable BREVIG MISSION, DR CRAMER Consulting Unavailable HOY ., DR ARAUJO Primary Care Unavailable BREVIG MISSION, DR CRAMER Attending Unavailable BREVIG MISSION, DR CRAMER Admitting Unavailable BREVIG MISSION, DR CRAMER Consulting Unavailable HOY ., DR ARAUJO Primary Care Unavailable BREVIG MISSION, DR CRMAER Attending Unavailable BREVIG MISSION, DR CRAMER Admitting Unavailable HOY ., DR ARAUJO Consulting Unavailable HOY ., DR ARAUJO Primary Care Unavailable HOY ., DR ARAUJO Attending Unavailable HOY ., DR ARAUJO Admitting Unavailable BREVIG MISSION, DR CRAMER Consulting Unavailable HOY ., DR ARAUJO Primary Care Unavailable BREVIG MISSION, DR CRAMER Attending Unavailable BREVIG MISSION, DR CRAMER Admitting Unavailable HOY ., DR [...] ., DR ARAUJO Primary Care Unavailable SHERICE FNOSECA Consulting Unavailable HARLEY, MYNOR Consulting Unavailable Dwyer, Yefri Consulting Unavailable ZELAYA, FRANCISCO Consulting Unavailable PELLissa, LI Consulting Unavailable RUTHIE LINDA Attending Unavailable JEFF REYES Attending Unavailable MOUKARBEL, CLARIBEL Attending Unavailable MOUKARBEL, CLARIBEL Attending Unavailable MOUKARBEL, CLARIBEL Attending Unavailable MOUKARBEL, CLARIBEL Attending Unavailable DANA APARICIO Attending Unavailable MOUKARBEL, CLARIBEL Referring Unavailable ROBINSON CHICAS Attending Unavailable MICHAELLE, BARRIE Gil Attending Unavailable AVIVA, ROBINSON Marroquin Attending Unavailable AVIVA, ROBINSON A Attending Unavailable AVIVA, ROBINSON A Attending Unavailable BROWN, ROBINSON A Attending Unavailable BROWN, ROBINSON A Attending Unavailable BEJ, BARRIE iGl Attending Unavailable AVIVA, ROBINSON A Attending Unavailable Patricia, Nereyda A Attending Unavailable Patricia, Nereyda A Attending Unavailable Patricia, Nereyda A Attending Unavailable Patricia, Nereyda A Attending Unavailable Patricia, Nereyda A Attending Unavailable NKANSAH-AMANKRA, MARQUIS Attending Unavail able Patricia, Nereyda A Admitting Unavailable Patricia, Nereyda A Attending Unavailable Van Sung Consulting Unavailable MD Van Sung Consulting Unavailable NKANSEMMY-AMCARLY, MARQUIS Attending Unavail able Allergies Allergy Classification Reported Allergen(s) Allergy Type Date of Onset Reaction(s) Facility (15 sources) Aminolevulinic Acid; 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: [aminolevulinic acid] Drug Allergy 11-04-20 13 Unknown [facility] Repository (1 source) NITRO PATCH; 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: [NITRO PATCH] Propensity to adverse reactions (disorder) 03-18-20 12 [facility] Repository (13 sources) Contrast media; 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: [Contrast Dye] Drug allergy Unknown (qualifier value) [facility] (13 sources) Hmg-Coa Reductase Inhibitors (Statins); 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: [statins] Allergy to substance Unknown [facility] (20 sources) Nitroglycerin; 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: [nitroglycerin] Drug Allergy 02-23-20 22 Unknown (qualifier value) [facility] (2 sources) black walnut pollen extract; 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: [NTPEKYW-DCC-CYR REDUCTASE INHIBITORS] Drug Allergy 04-21-20 17 [facility] Rep[facility] (1 source) Iodine (And Iodine Containting Drugs) Drug allergy (disorder) 05-28-20 16 [facility] Repository (1 source) IODINATED CONTRAST MEDIA; 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: [IODINATED CONTRAST MEDIA] Propensity to adverse reactions to drug (disorder) 07-17-20 [facility] Repository (1 source) Aminolevulinic Acid; 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: [aminolevulinic acid] Drug Allergy 11-04-20 13 [facility] Repository (1 source) Nitroglycerin; 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: [Nitroglycerin Patch] Drug Allergy [facility] Repository Medications Current Medications Medication Drug Class(es) Dates Sig (Normalized) Sig (Original) acyclovir 400 mg oral tablet (12 sources) Herpesvirus Nucleoside Analog DNA Polymerase Inhibitor, Herpes Simplex Virus Nucleoside Analog DNA Polymerase Inhibitor, Herpes Zoster Virus Nucleoside Analog DNA Polymerase Inhibitor Start: 01-09-2019 take 400 mg by mouth twice daily acyclovir 400 mg, Oral, BID, Refills(s) 0, Infection or prophylaxis for antibiotics Start Date: 01/09/19 Status: Ordered apixaban 2.5 mg oral tablet (12 sources) Factor Xa Inhibitor Start: 01-09-2019 take 2.5 mg by mouth twice daily Eliquis 2.5 mg, Oral, BID, Refills(s) 0, Blood Thinner Start Date: 01/09/19 Status: Ordered Start: 01-09-2019 take 5 mg by mouth twice daily Eliquis 5 mg, Oral, BID, Refills(s) 0, Blood Thinner Start Date: 01/09/19 Status: Ordered aspirin 81 mg oral tablet (12 sources) Platelet Aggregation Inhibitor, Nonsteroidal Anti-inflammatory Drug [...] day(s), # 90 cap(s), Refills(s) 0, Pharmacy: [facility]/pharmacy #[id number], 185, cm, 06/10/23 10:45:00 EDT, Height/Length Dosing, 97, kg, 06/10/23 10:45:00 EDT, Weight Dosing Start Date: 06/10/23 Stop Date: 09/08/23 Status: Ordered Start: 08-28-2020 take 1 capsule by mo uth once daily Align 4 mg oral capsule 4 mg = 1 cap(s), Oral, Daily, Take after completing the Antibiotics course, # 28 cap(s), Refills(s) 0, [id number] 185, cm, 08/28/20 12:05:00 EDT, Height/Length Dosing, 103.7, kg, 08/28/20 12:05:00 EDT, Weight Dosing Start Date: 08/28/20 Status: Ordered Symbicort (12 sources) Corticosteroid, beta2-Adrenergic Agonist Start: 01-09-2019 Symbicort 80-4.5 mcg/actuation, Inhalation, BID, Refill(s) 0, COPD Start Date: 01/09/19 Status: Ordered cloNIDine hydrochloride 0.1 mg oral tablet (12 sources) Central alpha-2 Adrenergic Agonist Start: 01-09-2019 take 0.1 mg by mouth twice daily clonidine 0.1 mg, Oral, BID, Refills(s) 0, High blood pressure Start Date: 01/09/19 Status: Ordered dicyclomine hydrochloride 10 mg oral tablet (12 sources) Anticholinergic Start: 01-09-2019 take 10 mg by mouth twice daily dicyclomine 10 mg, Oral, BID, Refills(s) 0, Spasm Start Date: 01/09/19 Status: Ordered empagliflozin 10 mg oral tablet (12 sources) Sodium-Glucose Cotransporter 2 Inhibitor Start: 03-31-2022 take 1 tablet by mouth once daily in the morning Jardiance 10 mg oral tablet 10 mg = 1 tab(s), Oral, qAM, Refills(s) 0, Blood glucose Start Date: 03/31/22 Status: Ordered ezetimibe 10 mg oral tablet (12 sources) Dietary Cholesterol Absorption Inhibitor Start: 01-09-2019 take 10 mg by mouth once daily Zetia 10 mg, Oral, Daily, Refills(s) 0, High cholesterol Start Date: 01/09/19 Status: Ordered ferrous sulfate (12 sources) Start: 01-09-2019 ferrous sulfate 325 mg, BID, Refills(s) 0, Prophylaxis Start Date: 01/09/19 Status: Ordered furosemide 80 mg oral tablet (13 sources) Loop Diuretic Start: 08-08-2024 take 1 mg by mouth once daily Lasix 80 mg Tab mg tab(s), Oral, Daily, Refills(s) 0 Start Date: 08/08/24 Status: Ordered Start: 01-09-2019 Lasix 40 mg, R efills(s) 0, diuretic/water pill Start Date: 01/09/19 Status: Ordered Start: 01-09-2019 take 20 mg by mouth once daily Lasix 20 mg, Oral, Daily, Refills(s) 0, diuretic/water pill Start Date: 01/09/19 Status: Ordered gabapentin 600 mg oral tablet (12 sources) Anti-epileptic Agent Start: 01-09-2019 gabapentin 600 mg, Oral, qNOON, Refills(s) 0, Neuropathy Start Date: 01/09/19 Status: Ordered glimepiride 2 mg oral tablet (12 sources) Sulfonylurea Start: 01-09-2019 take 2 mg by mouth once daily glimepiride 2 mg, Oral, Daily, Refills(s) 0, High blood sugar Start Date: 01/09/19 Status: Ordered hydrALAZINE hydrochloride 100 mg oral tablet (12 sources) Arteriolar Vasodilator Start: 01-09-2019 take 100 mg by mouth twice daily hydrALAZINE 100 mg, Oral, BID, Refills(s) 0, High blood pressure Start Date: 01/09/19 Status: Ordered Labetalol (12 sources) beta-Adrenergic Ora Start: 01-09-2019 take 150 mg by mouth once daily labetalol 150 mg, Oral, Daily, Refills(s) 0, High blood pressure Start Date: 01/09/19 Status: Ordered Start: 01-09-2019 take 300 mg by mouth once umang y labetalol 300 mg, Oral, Daily, Refills(s) 0, High blood pressure Start Date: 01/09/19 Status: Ordered magnesium oxide 500 mg oral tablet (12 sources) Start: 08-28-2020 take 500 mg by mouth once daily magnesium oxide 500 mg, Oral, Daily, Refills(s) 0, Prophylaxis Start Date: 08/28/20 Status: Ordered Start: 08-28-2020 magnesium oxid e Oral, Refills(s) 0 Start Date: 08/28/20 Status: Ordered metFORMIN hydrochloride 500 mg oral tablet (2 sources) Biguanide Start: 08-08-2024 metformin 500 mg Tab Refills(s) 0 Start Date: 08/08/24 Status: Ordered Start: 08-28-2020 take 1 mg by mouth once daily metformin 500 mg ER Tab mg tab(s), Oral, Daily, Refills(s) 0 Start Date: 08/28/20 Status: Ordered metoclopramide 5 mg oral tablet (12 sources) Dopamine-2 Receptor Antagonist Start: 01-09-2019 take 5 mg by mouth twice daily metoclopramide 5 mg, Oral, BID, Refills(s) 0, Control of stomach acid Start Date: 01/09/19 Status: Ordered mupirocin 20 mg/ml topical cream (1 source) RNA Synthetase Inhibitor Antibacterial Start: 08-08-2024 mupirocin Top 2% Crm Refill(s) 0 Start Date: 08/08/24 Status: Ordered 24 hr NIFEdipine 90 mg extended release oral tablet (12 sources) Dihydropyridine Calcium Channel Ora Start: 01-09-2019 [...] Daily Prior to colonoscopy Per physician's instructions, [facility]/pharmacy #[id number], 185, cm, 03/31/22 9:58:00 EDT, Height/Length Dosing, 101, kg, 03/31/22 9:58:00 EDT, Weight Dosing Start Date: 03/31/22 Status: Ordered omeprazole 20 mg oral tablet (12 sources) Proton Pump Inhibitor Start: 01-09-2019 take 20 mg by mouth twice daily omeprazole 20 mg, Oral, BID, Refills(s) 0, Control of stomach acid Start Date: 01/09/19 Status: Ordered pioglitazone 30 mg oral tablet (12 sources) Peroxisome Proliferator Receptor alpha Agonist, Peroxisome Proliferator Receptor gamma Agonist, Thiazolidinedione Start: 08-28-2020 take 1 tablet by mouth once daily pioglitazone 30 mg Tab 30 mg = 1 tab(s), Oral, Daily, Refills(s) 0, Blood glucose Start Date: 08/28/20 Status: Ordered Klor-Con (12 sources) Start: 01-09-2019 Klor-Con 20 mEq, Oral, Daily, Refills(s) 0, Prophylaxis Start Date: 01/09/19 Status: Ordered Pred Mild (12 sources) Corticosteroid Start: 01-09-2019 take 1 drop(s) into the eye(s) three times daily Pred Mild 1 drop(s), Eye-Both, TID, Refill(s) 0, Inflammation Start Date: 01/09/19 Status: Ordered Start: 01-09-2019 take 1 drop(s) into the eye(s) twice daily Pred Mild 1 drop(s), Eye-Both, BID, Refill(s) 0, Inflammation Start Date: 01/09/19 Status: Ordered primidone 50 mg oral tablet (12 sources) Anti-epileptic Agent Start: 01-09-2019 take 1 tablet by mouth once daily at bedtime primidone 50 mg Tab 50 mg = 1 tab(s), Oral, Once a day (at bedtime), # 30 tab(s), Refills(s) 0, Seizure Start Date: 01/09/19 Status: Ordered SITagliptin 100 mg oral tablet (12 sources) Dipeptidyl Peptidase 4 Inhibitor Start: 01-09-2019 take 100 mg by mouth once daily Januvia 100 mg, Oral, Daily, Refill(s) 0, High blood sugar Start Date: 01/09/19 Status: Ordered Spiriva Respimat 1.25 mcg/inh inhalation aerosol (1 source) Start: 01-09-2019 Spiriva Respimat 1.25 mcg/inh inhalation aerosol 2 puff(s), Inhalation, Daily, Refill(s) 0, COPD Start Date: 01/09/19 Status: Ordered tamsulosin hydrochloride 0.4 mg oral capsule (12 sources) alpha-Adrenergic Ora Start: 01-09-2019 take 0.4 mg by mouth once daily Flomax 0.4 mg, Oral, Daily, Refills(s) 0, Urinary discomfort Start Date: 01/09/19 Status: Ordered 60 actuat tiotropium 0.80203 mg/actuat inhalation spray (11 sources) Anticholinergic Start: 01-09-2019 Spiriva Respimat 1.25 mcg/inh inhalation aerosol 2 puff(s), Inhalation, Daily, Refill(s) 0, COPD Start Date: 01/09/19 Status: Ordered Completed/Discontinued Medications Medication Drug Class(es) Dates Sig (Normalized) Sig (Original) betamethasone 0.5 mg/ml / clotrimazole 10 mg/ml topical cream (1 source) Azole Antifungal, Corticosteroid Start: 08-08-2024 betamethasone-satnam trimazole Top 0.05%-1% Crm 15 gram Refill(s) 0 Start Date: 08/08/24 Status: Ordered psyllium 525 mg oral capsule (12 sources) Start: 08-28-2020 take 8 capsules by mouth once daily Metamucil 525 mg oral capsule 1,050 mg = 2 cap(s), Oral, Daily, Take 2 hour apart from the other medications with at least 8 ounces of water, # 160 cap(s), Refills(s) 1, Pharmacy: [facility]/pharmacy #[id number], 185, cm, 08/28/20 12:05:00 EDT, Height/Length Dosing, 103.7, kg, 08/28/20 12:05:00 EDT, Weight Dosing Start Date: 08/28/20 Status: Ordered Problems Active Problems Problem Classification Problem Date Documented Da te Episodic/Chronic Abdominal pain (1 source) Abdominal pain; 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: [Unspecified abdominal pain] Onset: 10-01-2023 Episodic Asthma (12 sources) Asthma 08-28-2020 Chronic Cardiac dysrhythmias (1 [...] disease (2 sources) Atherosclerotic heart disease of [place] coronary artery without angina pectoris; 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: [Atherosclerotic heart disease of [place] coronary artery without angina pectoris] Onset: 03-03-2024 Chronic Deficiency and other anemia (1 source) Anemia, unspecified; 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: [ANEMIA UNSPECIFIED] Onset: 03-04-2023 Episodic Diabetes mellitus with complications (4 sources) Type 2 diabetes mellitus with hyperglycemia; 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: [Type 2 diabetes mellitus with diabetic chronic kidney disease] Onset: 08-27-2022 Chronic Diabetes mellitus without complication (13 sources) Diabetes mellitus; 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: [Type 2 diabetes mellitus without complications] Onset: 04-30-2022 08-28-2020 Chronic Disorders of lipid metabolism (4 sources) Hyperlipidemia, unspecified; 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: [HYPERLIPIDEMIA UNSPECIFIED] Onset: 04-28-2022 Chronic Diverticulosis and diverticulitis (11 sources) Diverticula of intestine; 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: [Diverticulosis of intestine, part unspecified, without perforation or abscess without bleeding] Onset: 06-09-2022 Chronic Essential hypertension (3 sources) Essential (primary) hypertension; 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: [ESSENTIAL PRIMARY HYPERTENSION] Onset: 04-30-2022 Chronic Fluid and electrolyte disorders (5 sources) Hypo-osmolality and hyponatremia; 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: [Hyperkalemia] Onset: 08-27-2022 Episodic Genitourinary symptoms and ill-defined conditions (2 sources) Retention of urine; 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: [Retention of urine, unspecified] Onset: 08-08-2024 Episodic Heart valve disorders (7 sources) Nonrheumatic aortic (valve) stenosis; 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: [Rheumatic tricuspid insufficiency] Onset: 07-01-2022 Chronic Hemorrhoids (11 sources) Hemorrhoids; 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: [Unspecified hemorrhoids] Onset: 06-09-2022 Episodic Hyperplasia of prostate (2 sources) Benign prostatic hypertrophy with outflow obstruction; 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: [Benign prostatic hyperplasia with lower urinary tract symptoms] Onset: 08-08-2024 Chronic Hypertension with complications and secondary hypertension (1 source) Hypertensive chronic kidney disease with stage 1 through stage 4 chronic kidney disease, or unspecified chronic kidney disease; 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: [HTN CKD W/STAGE 1-4 CKD/UNS CKD] Onset: 08-27-2022 Chronic Inflammatory conditions of male genital organs (2 sources) Balanitis; 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] Onset: 08-08-2024 Chronic Nausea and vomiting (5 sources) Nausea; 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: [Nausea] Onset: 10-01-2023 Episodic Nutritional deficiencies (2 sources) Vitamin D deficiency, unspecified; 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: [Vitamin D deficiency, unspecified] Onset: 06-07-2024 Chronic Other aftercare (1 source) Long-term current use of anticoagulant; Translations: [assisted (current) use of anticoagulants] Onset: 08-08-2024 Episodic Other and unspecified benign neoplasm (17 sources) History of polyp of colon; Translations: [Personal history of colonic polyps] Onset: 03-31-2022 Episodic Other and unspecified benign neoplasm (13 sources) Polyp of colon; Translations: [Polyp of colon] Onset: 06-09-2022 08-28-2020 Episodic Other diseases of bladder and urethra (1 source) Detrusor overactivity; Translations: [Overactive bladder] Onset: 08-08-2024 Chronic Other diseases of bladder and urethra (1 source) Overactive bladder 08-08-2024 Chronic Other gastrointestinal disorders (12 sources) Chronic constipation with overflow 08-28-2020 Episodic Other gastrointestinal disorders (4 sources) Other fecal abnormalities; Translations: [OTHER FECAL ABNORMALITIES] Onset: 02-27-2023 Episodic Other gastrointestinal disorders (11 sources) Urgent desire for stool; Translations: [Fecal urgency] Onset: 04-13-2023 Episodic Other gastrointestinal disorders (2 sources) Abnormal feces; Translations: [Other fecal abnormalities] Onset: 04-13-2023 Episodic Other gastrointestinal disorders (9 sources) Loose stool 04-13-2023 Episodic Other gastrointestinal disorders (7 sources) Abdominal wind pain; Translations: [Gas pain] Onset: 06-10-2023 Episodic Other gastrointestinal disorders (2 sources) Constipation, unspecified; Translations: [Constipation, unspecified] Onset: 10-01-2023 Episodic Other gastrointestinal disorders (4 sources) Constipation 10-01-2023 Episodic Other male genital disorders (2 sources) Acquired buried penis; 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] Onset: 08-08-2024 Chronic Pulmonary heart disease (4 sources) 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 disease; Translations: [Pulmonary hypertension, unspecified] Onset: 10-05-2022 Chronic Residual codes; unclassified (1 source) Sleep apnea, unspecified; Translations: [SLEEP APNEA UNSPECIFIED] Onset: 08-27-2022 Chronic Residual codes; unclassified (7 sources) Family history of malignant neoplasm of digestive organ; Translations: [Family history of malignant neoplasm of digestive organs] Onset: 03-31-2022 Episodic Residual codes; unclassified (12 sources) Family history of cancer of colon 03-31-2022 Episodic Unclassified (4 sources) CHRN KIDNEY DISEASE STG 3 UNSP; Translations: [CHRN KIDNEY DISEASE STG 3 UNSP] Onset: 08-27-2022 Unclassified (3 sources) CONTACT W/AND (SUSP) EXPOS COVID-19; Translations: [CONTACT W/AND (SUSP) EXPOS COVID-19] Onset: 06-19-2022 Unclassified (1 source) COUGH, UNSPECIFIED; Translations: [COUGH, UNSPECIFIED] Onset: 06-19-2022 Unclassified (4 sources) Finding of sensation of abdomen 10-01-2023 Unclassified (2 sources) Longstanding persistent atrial fibrillation; Translations: [Longstanding persistent atrial fibrillation] Onset: 03-03-2024 Unclassified (1 source) Other pericardial effusion (noninflammatory); Translations: [Other pericardial effusion (noninflammatory)] Onset: 10-05-2022 Unclassified (1 source) Drug therapy finding 08-08-2024 Viral infection (3 sources) COVID-19; Translations: [COVID-19] [...] Onset: 04-30-2022 Episodic Other aftercare (1 source) computer terminal operator (current) use of aspirin; Translations: [FOUNDATION RELATIONS DIRECTOR CURRENT USE OF ASPIRIN] Onset: 08-27-2022 Episodic Other aftercare (1 source) assisted (current) use of anticoagulants; Translations: [ASSISTED CURRNT USE ANTICOAGULANTS] Onset: 08-27-2022 Episodic Other aftercare (1 source) Other terminal worker (current) drug therapy; Translations: [OTH ASSISTED CURRENT DRUG THERAPY] Onset: 08-27-2022 Episodic Other [...] Test Name Value Interpretation Reference Range Facility Ambulatory Visit Summaryon 0 08-08-2024 Ambulatory Visit Summary Ambulatory Visit Summary NADIR HEREDIA Joy :1940 Visit Date:08/08/2024 Ambulatory Visit Instructions Your Diagnosis 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 Incomplete bladder emptying OAB (overactive bladder) Anticoagulated Your Care Team Attending Physician - ADRIAN GUSTAFSON, MARQUIS Primary Care Physician - Van Sung MD This Is Your Medications List Contact prescribing physician if questions or concerns NIFEdipine acyclovir apixaban (Eliquis) aspirin betamethasone-clotri mazole topical (betamethasone-clotr imazole Top 0.05%-1% Crm 15 gram) budesonide-formotero l (Symbicort) clonidine dicyclomine empagliflozin (Jardiance 10 mg oral tablet) ezetimibe (Zetia) ferrous sulfate furosemide (Lasix 80 mg Tab) furosemide (Lasix) gabapentin glimepiride hydrALAZINE labetalol magnesium oxide metformin (metformin 500 mg Tab) metoclopramide mupirocin topical (mupirocin Top 2% Crm) omeprazole pioglitazone (pioglitazone 30 mg Tab) potassium chloride (Klor-Con) prednisoLONE ophthalmic (Pred Mild) primidone (primidone 50 mg Tab) psyllium (Metamucil 525 mg oral capsule) sitagliptin (Januvia) tamsulosin (Flomax) tiotropium (Spiriva Respimat 1.25 mcg/inh inhalation aerosol) Procedures Performed Colonoscopy (05/11/2022), Cardioversion (01/11/2017), Back, Cholecystectomy, Colonoscopy, History of hernia repair, Tonsillectomy. Discharge Vitals Blood Pressure 140/82 Height 185 cm Height 73 in Weight 91 kg Weight 200.2 lb BMI 26.59 What to do next You Need to Schedule the Following Appointments Follow Up with ADRIAN GUSTAFSON, ADAN CHO When: Where: Medications What How Much When Why Instructions Unchanged acyclovir 400 Milligram By Mouth 2 times a day Contact prescribing physician if questions or concerns Unchanged apixaban (Eliquis) 2.5 Milligram By Mouth 2 times a day Contact prescribing physician if questions or concerns Unchanged aspirin 81 Milligram By Mouth Every day Contact prescribing physician if questions or concerns Unchanged betamethasone-clotri mazole topical (betamethasone-clotr imazole Top 0.05%-1% Crm 15 gram) Contact prescribing physician if questions or concerns Unchanged budesonide-formotero l (Symbicort) 80-4.5 mcg/actuation Inhalation 2 times a day Contact prescribing physician if questions or concerns Unchanged clonidine 0.1 Milligram By Mouth 2 times a day Contact prescribing physician if questions or concerns Unchanged dicyclomine 10 Milligram By Mouth 2 times a day Contact prescribing physician if questions or concerns Unchanged empagliflozin (Jardiance 10 mg oral tablet) 1 Tablets By Mouth Once a day (in the morning) Contact prescribing physician if questions or concerns Unchanged ezetimibe (Zetia) 10 Milligram By Mouth Every day Contact prescribing physician if questions or concerns Unchanged ferrous sulfate 325 Milligram 2 times a day Contact prescribing physician if questions or concerns Unchanged furosemide (Lasix 80 mg Tab) By Mouth Every day Contact prescribing physician if questions or concerns Unchanged furosemide (Lasix) 40 Milligram Contact prescribing physician if questions or concerns Unchanged gabapentin 600 Milligram By Mouth Every day at 12:00 noon Contact prescribing physician if questions or concerns Unchanged glimepiride 2 Milligram By Mouth Every day Contact prescribing physician if questions or concerns Unchanged hydrALAZINE 100 Milligram By Mouth 2 times a day Contact prescribing physician if questions or concerns Unchanged labetalol 150 Milligram By Mouth Every day Contact prescribing physician if questions or concerns Unchanged magnesium oxide 500 Milligram By Mouth Every day Contact prescribing physician if questions or concerns Unchanged metformin (metformin 500 mg Tab) Contact prescribing physician if questions or concerns Unchanged metoclopramide 5 Milligram By Mouth 2 times a day Contact prescribing physician if questions or concerns Unchanged mupirocin topical (mupirocin Top 2% Crm) Contact prescribing physician if questions or concerns Unchanged NIFEdipine 90 Milligram By Mouth 2 times a day Contact prescribing physician if questions or concerns Unchanged omeprazole 20 Milligram By Mouth 2 times a day Contact prescribing physician if questions or concerns Unchanged pioglitazone (pioglitazone 30 mg Tab) 1 Tablets By Mouth Every day Contact prescribing physician if questions or concerns Unchanged potassium chloride (Klor-Con) 20 Milliequivalent By Mouth Every day Contact prescribing physician if questions or concerns Unchanged prednisoLONE ophthalmic (Pred Mild) 1 Drops Both eyes 3 times a day Contact prescribing physician if questions or concerns Unchanged primidone (primidone 50 mg Tab) 1 Tablets By Mouth Once a day (at bedtime) Contact prescribing physician if questions or concerns Unchanged psyllium (Metamucil 525 mg (more content not included)... Normal [facility] Urology Office/Clinic Noteon 08-08-2024 Urology Office/Clinic Note Urology Office/Clinic Note Chief Complaint follow up to [facility] ER HPI Staff 84 year old male new patient follow up to [facility] 08/06/24 presented due to redness on the shaft of this penis and frequency of urination, per ER note patient was unable to explain his issue. UA showed no evidence of uti. Was given Lotrisone and Bactroban cream. Patient did report at the ER that for the last few months his penis as been retracting into his body Creatinine 08/06/24- 1.56 PSA 01/13/18- 3.43 03/17/24- 2.6 & 32.3% Patient is taking lasix 40mg in the morning and 80mg at night, states that he has noticed severe frequency since the increase Dysuria: no Incomplete bladder emptying: no Hematuria: no Frequency: no Urgency: severe when he stands up Nocturia 7x a night Stream: good stream Leaking: no Post void dripping: no Wearing pads/ Depends: no Urge incontinence: mild intermittent Stress incontinence: no Incontinence without Sensory Awareness: no Abdominal pain: no Flank pain: no Sexual complaints: no History of Present Illness Tests reviewed: reviewed UA, ER records, PSA, labs, external records. I have reviewed the previous health record information and history for this patient from external provider. I have reviewed and verified the staff HPI to be accurate for this encounter. There have been no associated fever, chills, flank pain, or blood in the urine. Denies any urinary infections since last encounter. Review of Systems ROS - Provider Constitutional: denies weight loss, denies hot flashes. Eyes: denies eye problems. Gastrointestinal: denies nausea, denies vomiting. Cardiovascular: denies chest pain or angina. Integumentary: no dryness Musculoskeletal: denies musculoskeletal symptoms. ENMT: denies otolaryngeal symptoms. Respiratory: no shortness of breath. Heme/Lymph: denies easy bleeding tendency, denies easy bruising tendency. Psychiatric: no confusion, no anxiety. Genitourinary: See HPI. Physical Exam Vitals & Measurements BP: 140/82 HT: 73 in HT: 185 cm WT: 91 kg WT: 200.2 lb BMI: 26.59 General Appearance: alert, no distress, well nourished, well developed male. Head: normocephalic . Eyes: normal orbit and globe. ENMT: normal examination of external ears. Chest: Lungs CTA, respirations non labored. Cardiovascular: regular rate and rhythm. Abdomen: soft, non distended, no tenderness, no mass or organomegaly, no hernia. Genitourinary: normal scrotum, normal testes, normal urethra, normal epididymis, normal vas deferens/spermatic cord. Penis: urethral meatus is open, mild erythematous area at 12 o'clock position of glans penis. Prostate: 60g, no nodules, no bogginess. Lymph Nodes: unremarkable palpation of the cervical area. Skin: warm, dry, no bruising. Psychiatric: cooperative, affect appropriate for age, normal judgement, euthymic mood. Assessment/Plan 84 yo male new to our office for balanitis. Pt accompanied by and daughter today. Poor historian. T2DM, taking Jardiance, daughter states latest A1c is >6 but less than 10. Hx of cholecystectomy. 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 Family hx of colon CA. KEITH 3. Not a priority. PSA: 01/13/19 - 3.43 03/17/24 - 2.6 & 32.3% 1. 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) Pt presented to [facility] ER 08/06/24 with redness on the shaft of his penis. UA was negative for UTI, neg micro. Labs ~Cr 1.56, eGFR 43 Discharged home with Lotrisone and Bactroban cream. UA today shows trace-intact blood. Recent neg micro at the ER. Denies UTIs or STIs. Pt states he has been circumcised. Denies discharge. Physical exam- urethral meatus is open, mild erythematous area at 12 o'clock position of glans penis. 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 Mentions he has difficulty urinating due to this. Reported at the time of ER visit that the last few months his penis has been retracting into his body. Pt states he is able to stand up to urinate. Does experience leakage which is likely due to incomplete emptying. Advised pt to push his stomach back to expose the head of his penis so he is able to urinate. -Behavioral modifications 3. BPH with urinary obstruction (N40.1: Benign prostatic hyperplasia with lower urinary tract symptoms) LATRELL: ~ 60g, no nodules, no bogginess. Taking Flomax 0.4mg qd which he has been on for years. Discussed cystoscopic evaluation for further information. Discussed outlet procedures such as UroLift or REZUM that are minimally invasive compared to TURP. Pt shares he prefers to avoid surgical management unless necessary but wishes to proceed with cystoscopy. -Will schedule cysto and TRUS for sizing. The risks and benefits for cystoscopy have been discussed. The risks include bleeding, infection, and irritation of the bladder and urinary channel, (more content not included)... Normal [facility] Comment on above: Result Comment: Elec tronically Signed By: MARQUIS CAMPBELL MD\.br\Date and Time Signed: 08/08/24 11:05 EDT\.br\Electronically Co-Signed By: Roxy Gatica\.br\Date and Time Co-Signed: 08/08/24 10:46 EDT\.br\Electronically Co-Signed By: Roxy Gatica\.br\Date and Time Co-Signed: 08/08/24 10:53 EDT Office Visiton 07-05-2024 Follow-up visit [id number] Nadir Heredia 1940 M Date Provider Department Center 07/05/2024 RUTHIE OWEN [facility] NEPHRO Comprehensiv Family History Problem Relation Age of Onset Coronary artery disease Father Family Status - Relation Status Age at Father Level of Service:54464 ME OFFICE/OUTPATIENT ESTABLISHED MOD MDM 30 MIN Reason for Visit and Comments: Follow-up [413880] [facility] 36on 06-20-2024 36 Regarding echo result from [...] her he should have another echo at [facility] in Oct 2024, prior to his follow up with Dr. Puga in Nov 2024. She verbalized understanding. Echo order faxed to [facility]. [facility] 06-14-2024 36 Patients called and stating that dr. Linda told her to call and let him know that her husbands blood pressure is better and she would like a call back. [facility] 06-09-2024 36 Spoke with patient's Shanna and made sure she understood to increase labetalol per Dr. Linda. She also understands not to resume hydralazine. [facility] 06-07-2024 36 I'm Stephanie from Dr. Puga's office with Cardiology. Patient's daughter called and wanted to know if Dr. Linda had restarted patient's hydralazine- NOT hydroxyzine. I don't see in the note that it was restarted. Dr. Linda, or someone from his office- can you clarify this for me? Thanks so much. [facility] Follow-Upon 06-07-2024 Follow-Up [id number] Nadir Heredia 1940 M Date Provider Department Center 06/07/2024 RUTHIE OWEN [facility] NEPHRO Comprehensiv Family History Problem Relation Age of Onset Coronary artery disease Father Family Status - Relation Status Age at Father Level of Service:87748 ME OFFICE/OUTPATIENT ESTABLISHED MOD MDM 30 MIN () Reason for Visit and Comments: Follow-up [[id number]] [facility] Telephoneon 06-07-2024 Telephone [id number] Nadir Heredia 1940 M Date Provider Department Center 06/07/2024 IRIS FRANZ [facility] NEPHRO Comprehensiv Family History Problem Relation Age of Onset Coronary artery disease Father Family Status - Relation Status Age at Father [facility] Office Visiton 06-05-2024 Follow-up visit [id number] Steen 1940 M Date Provider Department Center 06/05/2024 CLARIBEL VILLALOBOS [facility] Family History Problem Relation Age of Onset Coronary artery disease Father Family Status - Relation Status Age at Father Level of Service:08450 ME OFFICE/OUTPATIENT ESTABLISHED MOD MDM 30 MIN [facility] 05-17-2024 36 Faxed lab orders 05/17/24 [facility] 3605-15-2024 36 Patient states that he needs his blood work to go to [facility] before his appointment on 05/31/24. [facility] 05-10-2024 36 LM on VM for patient or his to return my call. [facility] 05-08-2024 36 Patient's called with concerns of elevated BP since hydralazine was stopped at last apt. She said sometimes it's very good - 110/60's and sometimes 152/70. He's scheduled to see you in a few weeks. Did you want to change anything? Please advise. Thanks. [facility] 04-04-2024 36 Regarding blood work from 04/03/2024: MD Stephanie Kelley MA Stable renal function. Continue same treatment and follow-up as planned. Patient's made aware. [facility] Orders Onlyon 03-21-2024 Orders Only [id number] Nadir Heredia 1940 M Date Provider Department Center 03/21/2024 LUCRETIA BENZ MILKA [facility] Family History Problem Relation Age of Onset Coronary artery disease Father Family Status - Relation Status Age at Father [facility] Office Visiton 03-03-2024 Follow-up visit [id number] Nadir Heredia 1940 M Date Provider Department Center 03/03/2024 CLARIBEL VILLALOBOS MILKA [facility] Family History Problem Relation Age of Onset Coronary artery disease Father Family Status - Relation Status Age at Father Level of Service:24053 ME OFFICE/OUTPATIENT ESTABLISHED MOD MDM 30 MIN Reason for Visit and Comments: Follow-up [[id number]] [facility] 12-29-2023 36 Called and spoke with patient and rescheduled patients appointment from 05/31 to 06/07. [facility] 12-28-2023 36 Called patient lvm to contact the office back to reschedule appointment. Normal [facility] Follow-Upon 11-17-2023 Follow-Up [id number] Nadir Heredia 1940 M Date Provider Department Center 11/17/2023 RUTHIE OWEN [facility] NEPHRO Comprehensiv Family History Problem Relation Age of Onset Coronary artery disease Father Family Status - Relation Status Age at Father Level of Service:05691 ME OFFICE/OUTPATIENT ESTABLISHED MOD MDM 30 MIN (GC) Reason for Visit and Comments: Follow-up [185952] Chronic Kidney Disease [176] Normal [facility] Lab Reportson 10-21-2023 Lab Reports [id number] #1.00TIFF [facility] Gastroenterology Office/Clin ic Noteon 10-18-2023 Gastroenterology [...] fiber supplem (more content not included)... Normal [facility] Comment on above: Result Comment: Elec [...] PM EST With: Nereyda Gomez CNP Where: [facility] Normal [facility] Patient Educationon 10-14-20 23 Patient Education [...] as fried or sweet foods. These include tajik fries, hamburgers, cookies, candies, and soda. ? Drink enough fluid to keep your urine pale yellow. General instructions ? Exercise regularly or as told by your health care provider. Try to do 150 minutes of moderate exercise each week. ? Use the bathroom when you have the urge to go. Do not hold it in. ? Take hvee-vff-sxgymgy and prescription medicines only as told by [...] keep your urine pale yellow. ? Take icxe-hgy-sukcrny and prescription medicines only as told by your health care provider. This includes any fiber supplements. This information is not intended to replace advice given to you by your health care provider. Make sure you discuss any questions you have with your health care provider. Document Revised: 09/18/2020 Document Reviewed: 09/18/2020 [employer] Patient Education ? 2022 [employer]. [facility] 36on 10-12-2023 36 Patient called to make you aware that he was in [facility] ED on (Wednesday) for SOB. He wanted you to look over his records. I have uploaded them all into his interactive media marketing director for your review. His BNP is increased to 4000 and was previously 2600 about 1 month ago. Looks like they gave him extra lasix in the ED and recommended he follow up with Dr. Sung outpatient. Can you please review and let me know if you'd like anything done/ordered? Thanks. [facility] XR Abdomen 2 Viewson 023 [...] MARII Technologist: EDUARDA Technical Comments Radiation Dose: Kalevi in mGy = . DAP = . Normal [facility] Lab Reportson 10-04-2023 Lab Reports [id number] 1#1.00TIFF Normal [facility] RAD - MISCon 10-04-2023 RAD - MISC [id number] #1.00TIFF Normal [facility] Ambulatory Visit Summaryon 1 12-01-2022 Ambulatory [...] PM EST With: Nereyda Gomez CNP Where: [facility] Invalid Interpretation Code Abdominal cramping [facility] Consent for Treatmenton 09-15 Consent for Treatment [id number] #1.00TIFF Normal [facility] Gastroenterology Office/Clin ic Noteon 10-01-2023 Gastroenterology [...] educated t (more content not included)... Normal [facility] Comment on above: Result Comment: Elec [...] Bulgur wheat. Millet. Quinoa. Bran muffins. Popcorn. [place] wafer crackers. Meats and other proteins [place] beans, kidney beans, and mendez beans. Soybeans. [...] Cream cheese. Sour cream. Fats and oils [place]. Beverages Soft drinks. Other foods Cakes [...] provider. Document Revised: (more content not included)... [facility] 36on 09-20-2023 36 Called and spoke with and rescheduled appointment and informed her patient would need to get labs done. [facility] 36 Patients called in to reschedule appointment from 09/08 [facility] Office Visiton 09-17-2023 Follow-up visit [id number] KiritNadir 1940 Date Provider Department Center 09/17/[address] [facility] Family History Problem Relation Age of Onset Coronary artery disease Father Family Status - Relation Status Age at Father Level of Service:24091 ME OFFICE/OUTPATIENT ESTABLISHED MOD MDM 30-39 MIN Reason for Visit and Comments: Follow-up [[id number]] [facility] HPon 08-31-2023 [facility] Cardiology [facility] Subjective Nadir Heredia is a [...] extremity edema. He was admitted to the [facility] in August 2022 due to hyponatremia, hyperkalemia and acute kidney injury, leukocytosis secondary to COVID-19 causing dehydration. I saw him on 05/24/2023 and the office and he had significant evidence of volume overload by exam and echocardiogram. I intensified his diuretic regimen. He ended up getting admitted to the [facility] with acute heart failure exacerbation and [...] Allergies Allergen Reactions Iodinated Contrast Media Nitroglycerin Qkqbmcn-Gcf-Yhf Reductase Inhibitors Medications Current Outpatient Medications: acyclovir [...] Take 1 ta (more content not included)... Normal [facility] NURSNOTEon 08-31-2023 NURSNOTE Pt performed and passed bedside swallow study. RN educated pt on d/c instructions. RN encouraged pt to voice any questions or concerns. Pt verbalizes no questions or concerns at this time. Pt was wheeled off of unit with all of belongings. Normal [facility] Telephoneon 08-24-2023 Telephone [id number] Nadir Heredia 1940 M Date Provider Department Center 08/24/2023 RABIA KONG [facility] VAS LAB [facility] HeartVAS Family History Problem Relation Age of Onset Coronary artery disease Father Family Status - Relation Status Age at Father [facility] Office Visiton 07-21-2023 Follow-up visit [id number] Nadir Heredia 1940 M Date Provider Department Center 07/21/2023 CLARIBEL VILLALOBOS [facility]a [facility] Family History Problem Relation Age of Onset Coronary artery disease Father Family Status - Relation Status Age at Father Level of Service:44753 ME OFFICE/OUTPATIENT ESTABLISHED MOD MDM 30-39 MIN Reason for Visit and Comments: Follow-up [[id number]] Normal [facility] MICRO OTHER TESTSOrdered By: Francisco Bolanos on 04-15-2023 Fecal WBC Lactoferrin Negative (04/15/23 7:00 AM) Normal Negative [facility] Man Sero CHEMISTRYOrdered By: SYSTEM SYSTEM on 04-13-2023 Albumin [...] mg/mg Normal 10 - 20 [facility] Remisol HEMATOLOGYOrdered By: SYSTEM SYSTEM on 04-13-2023 Basophils/100 [...] 6.7 E9/L Normal 4.0 - 11.0 E9/L FT HemeAutoSS ALBUMINon 03-24-2023 Albumin [Mass/Vol] 3.3 g/dL Critically low 3.4-5.0 [facility] Comment on above: Performed By: #### M G, BMP, PHOS #### [facility] [address] [address] [address] David Magana GLYCOHEMOGLOBIN A1Con 2022 ADA RECOMMENDATION SEE BELOW Normal [facility] Comment on above: Result Comment: ADA RECOMMENDED LIMIT 4.0 - 6.0 ADA THERAPEUTIC TARGET < 7.0 ACTION SUGGESTED > 7.0 Performed By: #### A 1C #### [facility] [address] [address] [address] David Magana Glucose [Mass/Vol] 108 mg/dL Normal [facility] Comment on above: Performed By: #### A 1C #### [facility] [address] [address] [address] David Magana HbA1c (Bld) [Mass fraction] 5.4 % Normal 4.5-6.2 [facility] Comment on above: Performed By: #### A 1C #### [facility] [address] [place] [address] Dr. David Magana PHOSPHORUSon 03-24-2023 Phosphate [Mass/Vol] 3.6 mg/dL Normal 2.6-4.7 [facility] Comment on above: Performed By: #### M ERICK Faith, PHOS #### [facility] [address] [place] [address] Dr. David Magana PROF CHEM 8 (BAS METB)on Anion gap [Moles/Vol] 11.6 mmol/L Normal [facility] Comment on above: Performed By: #### M ERICK Faith, PHOS #### [facility] [address] [place] [address] Dr. David Magana Calcium [Mass/Vol] 8.9 mg/dL Normal 8.5-10.1 [facility] Comment on above: Performed By: #### M ERICK Faith, PHOS #### [facility] [address] [place] [address] Dr. David Magana Chloride [Moles/Vol] 107 mmol/L Normal 98-107 [facility] Comment on above: Performed By: #### M Marcell BMP, PHOS #### [facility] [address] [place] [address] Dr. David Magana CO2 [Moles/Vol] 30.8 mmol/L Normal 21.0-32.0 [facility] Comment on above: Performed By: #### M Marcell BMP, PHOS #### [facility] [address] [place] [address] Dr. David Magana Creatinine [Mass/Vol] 1.67 mg/dL Critically high 0.70-1.30 [facility] Comment on above: Performed By: #### M G, BMP, PHOS #### [facility] [address] [place] [address] Dr. David Magana EGFR-AF UGANDAN 48 mL/min/1.73m2 Critically low >=60 [facility] Comment on above: Performed By: #### M G, BMP, PHOS #### [facility] [address] [place] [address] Dr. David Magana EGFR-NON AF UGANDAN 39 mL/min/1.73m2 Critically low >=60 [facility] Comment on above: Performed By: #### M G, BMP, PHOS #### [facility] [address] [place] [address] Dr. David Magana Glucose [Mass/Vol] 128 mg/dL Critically high 74-106 [facility] Comment on above: Performed By: #### M G, BMP, PHOS #### [facility] [address] [place] [address] Dr. David Magana Potassium [Moles/Vol] 4.4 mmol/L Normal 3.5-5.1 [facility] Comment on above: Performed By: #### M G, BMP, PHOS #### [facility] [address] [place] [address] Dr. David Magana Sodium [Moles/Vol] 145 mmol/L Normal 136-145 [facility] Comment on above: Performed By: #### M G, BMP, PHOS #### [facility] [address] [place] [address] Dr. David Magana Urea nitrogen [Mass/Vol] 25.0 mg/dL Critically high 7.0-18.0 [facility] Comment on above: Performed By: #### M G, BMP, PHOS #### [facility] [address] [place] [address] Dr. David Magana Urea nitrogen/Creatinine [Mass ratio] 15.0 mg/mg Normal [facility] Comment on above: Performed By: #### M G, BMP, PHOS #### [facility] [address] [place] [address] Dr. David Magana VITAMIN D 25 OHon 05-10-2023 VIT D 25-OH 11.6 ng/mL Normal [facility] Comment on above: Performed By: #### C BC #### [facility] [address] [place] [address] Dr. David Magana VIT D RANGES SEE BELOW Normal [facility] Comment on above: Result Comment: <20 ng/mL Vit D deficient 20 - <30 ng/mL Vit D insufficient 30 - 100 ng/mL Vit D sufficient >100 ng/mL Potential Toxicity Performed By: #### C BC #### [facility] [address] [place] [address] Dr. David Magana CBC AUTO DIFFon 02-27-2023 BASO # 0.0 103/ul Normal 0.0-0.1 [facility] Comment on above: Performed By: #### M ERICK Faith, PHOS #### [facility] [address] [place] [address] Dr. David Magana Basophils/100 WBC (Bld) 0.5 % Normal 0.2-2.0 [facility] Comment on above: Performed By: #### M ERICK Faith, PHOS #### [facility] [address] [place] [address] Dr. David Magana EO # 0.7 103/ul Normal 0.0-0.7 [facility] Comment on above: Performed By: #### M ERICK Faith, PHOS #### [facility] [address] [place] [address] Dr. David Magana Eosinophils/100 WBC (Bld) 9.3 % Critically high 0.9-7.0 [facility] Comment on above: Performed By: #### M Marcell BMP, PHOS #### [facility] [address] [place] [address] Dr. David Magana Erythrocyte distribution width (RBC) [Ratio] 14.6 % Normal 11.0-15.0 [facility] Comment on above: Performed By: #### M Marcell, BMP, PHOS #### [facility] [address] [place] [address] Dr. David Magana Hematocrit (Bld) [Volume fraction] 41.5 % Critically low 42.0-54.0 [facility] Comment on above: Performed By: #### ERICK Jacques, PHOS #### [facility] [address] [place] [address] Dr. David Magana Hemoglobin (Bld) [Mass/Vol] 13.9 g/dL Critically low 14.0-18.0 [facility] Comment on above: Performed By: #### ERICK Jacques, PHOS #### [facility] [address] [place] [address] Dr. David Magana IG # 0.02 10e3/ul Normal 0.00-0.03 [facility] Comment on above: Performed By: #### ERICK Jacques, PHOS #### [facility] [address] [place] [address] Dr. David Magana IG % 0.3 % Normal 0.0-0.5 [facility] Comment on above: Performed By: #### ERICK Jacques, PHOS #### [facility] [address] [place] [address] Dr. David Magana LYMPH # 1.0 103/ul Critically low 1.2-3.8 [facility] Comment on above: Performed By: #### ERICK Jacques, PHOS #### [facility] [address] [place] [address] Dr. David Magana Lymphocytes/100 WBC (Bld) 13.0 % Critically low 20.5-60.0 [facility] Comment on above: Performed By: #### ERICK Jacques, PHOS #### [facility] [address] [place] [address] Dr. David Magana MANUAL DIFF REQ NO Normal [facility] Comment on above: Performed By: #### ERICK Jacques, PHOS #### [facility] [address] [place] [address] Dr. David Magana MCH (RBC) [Entitic mass] 33.5 pg Normal 25.9-34.0 [facility] Comment on above: Performed By: #### M G, BMP, PHOS #### [facility] [address] [place] [address] Dr. David Magana MCHC (RBC) [Mass/Vol] 33.5 g/dL Normal 29.9-35.2 [facility] Comment on above: Performed By: #### M G, BMP, PHOS #### [facility] [address] [place] [address] Dr. David Magana MCV (RBC) [Entitic vol] 100.0 fL Critically high 80.0-94.0 [facility] Comment on above: Performed By: #### M G, BMP, PHOS #### [facility] [address] [place] [address] Dr. David Magana MONO # 0.8 103/ul Normal 0.3-0.8 [facility] Comment on above: Performed By: #### M G, BMP, PHOS #### [facility] [address] [place] [address] Dr. David Magana Monocytes/100 WBC (Bld) 10.1 % Normal 1.7-12.0 [facility] Comment on above: Performed By: #### M G, BMP, PHOS #### [facility] [address] [place] [address] Dr. David Magana NEUT # 5.0 103/ul Normal 1.4-6.5 [facility] Comment on above: Performed By: #### M G, BMP, PHOS #### [facility] [address] [place] [address] Dr. David Magana Neutrophils/100 WBC (Bld) 66.8 % Normal 43.0-75.0 [facility] Comment on above: Performed By: #### M G, BMP, PHOS #### [facility] [address] [place] [address] Dr. David Magana Platelet mean volume (Bld) [Entitic vol] 11.2 fL Normal 9.5-13.5 [facility] Comment on above: Performed By: #### M G, BMP, PHOS #### [facility] [address] [place] [address] Dr. David Magana PLT 187 103/ul Normal 150-450 [facility] Comment on above: Performed By: #### M ERICK Faith, PHOS #### [facility] [address] [place] [address] Dr. David Magana RBC 4.15 106/ul Critically low 4.70-6.10 [facility] Comment on above: Performed By: #### ERICK Jacques PHOS #### [facility] [address] [place] [address] Dr. David Magana WBC 7.5 103/ul Normal 4.0-11.0 [facility] Comment on above: Performed By: #### ERICK Jacques PHOS #### [facility] [address] [place] [address] Dr. David Magana PROF 14(COMP METB)on 023 Albumin [Mass/Vol] 3.5 g/dL Normal 3.4-5.0 [facility] Comment on above: Performed By: #### A 1C #### [facility] [address] [place] [address] Dr. David Magana Albumin/Globulin [Mass ratio] 1.1 {ratio} Normal [facility] Comment on above: Performed By: #### A 1C #### [facility] [address] [place] [address] Dr. David Magana ALP [Catalytic activity/Vol] 76 U/L Normal 46-116 [facility] Comment on above: Performed By: #### A 1C #### [facility] [address] [place] [address] Dr. David Magana ALT [Catalytic activity/Vol] 23 U/L Normal 16-63 [facility] Comment on above: Performed By: #### A 1C #### [facility] [address] [place] [address] Dr. David Magana Anion gap [Moles/Vol] 13.1 mmol/L Normal [facility] Comment on above: Performed By: #### A 1C #### [facility] [address] [place] [address] Dr. David Magana AST [Catalytic activity/Vol] 17 U/L Normal 15-37 [facility] Comment on above: Performed By: #### A 1C #### [facility] [address] [place] [address] Dr. David Magana Bilirubin [Mass/Vol] 0.7 mg/dL Normal 0.2-1.0 [facility] Comment on above: Performed By: #### A 1C #### [facility] [address] [address] [address] David Magana Calcium [Mass/Vol] 9.0 mg/dL Normal 8.5-10.1 [facility] Comment on above: Performed By: #### A 1C #### [facility] [address] [place] [address] Dr. David Magana Chloride [Moles/Vol] 105 mmol/L Normal 98-107 [facility] Comment on above: Performed By: #### A 1C #### [facility] [address] [place] [address] Dr. David Magana CO2 [Moles/Vol] 29.0 mmol/L Normal 21.0-32.0 [facility] Comment on above: Performed By: #### A 1C #### [facility] [address] [place] [address] Dr. David Magana Creatinine [Mass/Vol] 1.77 mg/dL Critically high 0.70-1.30 [facility] Comment on above: Performed By: #### A 1C #### [facility] [address] [place] [address] Dr. David Magana EGFR-AF UGANDAN 45 mL/min/1.73m2 Critically low >=60 [facility] Comment on above: Performed By: #### A 1C #### [facility] [address] [place] [address] Dr. David Magana EGFR-NON AF UGANDAN 37 mL/min/1.73m2 Critically low >=60 [facility] Comment on above: Performed By: #### A 1C #### [facility] [address] [place] [address] Dr. David Magana Globulin (S) [Mass/Vol] 3.3 g/dL Normal [facility] Comment on above: Performed By: #### A 1C #### [facility] [address] [address] [address] David Magana Glucose [Mass/Vol] 135 mg/dL Critically high 74-106 [facility] Comment on above: Performed By: #### A 1C #### [facility] [address] [address] [address] David Magana Potassium [Moles/Vol] 4.1 mmol/L Normal 3.5-5.1 [facility] Comment on above: Performed By: #### A 1C #### [facility] [address] [address] [address] David Magana Protein [Mass/Vol] 6.8 g/dL Normal 6.4-8.2 [facility] Comment on above: Performed By: #### A 1C #### [facility] [address] [address] [address] David Magana Sodium [Moles/Vol] 143 mmol/L Normal 136-145 [facility] Comment on above: Performed By: #### A 1C #### [facility] [address] [address] [address] David Magana Urea nitrogen [Mass/Vol] 31.0 mg/dL Critically high 7.0-18.0 [facility] Comment on above: Performed By: #### A 1C #### [facility] [address] [address] [address] David Magana Urea nitrogen/Creatinine [Mass ratio] 17.5 mg/mg Normal [facility] Comment on above: Performed By: #### A 1C #### [facility] [address] [address] [address] David Magana PROTIMEon 02-27-2023 INR Coag (PPP) [Relative time] 0.99 {INR} Normal [facility] Comment on above: Performed By: #### A 1C #### [facility] [address] [place] [address] Dr. David Magana INR GUIDELINES SEE BELOW Normal [facility] Comment on above: Result Comment: IDANIA RED INR: 2.0 - 3.0 CONDITIONS NOT LISTED BELOW 2.5 - 3.5 FOR PROSTHETIC HEART VALVE REPLACEMENT 2.5 - 3.5 RECURRENT THROMBOSIS Performed By: #### A 1C #### [facility] [address] [place] [address] Dr. David Magana PT Coag (PPP) [Time] 10.5 s Normal 9.0-11.6 [facility] Comment on above: Performed By: #### A 1C #### [facility] [address] [place] [address] Dr. David Magana PTTon 02-27-2023 aPTT Coag (Bld) [Time] 33.0 s Normal 22.3-36.2 [facility] Comment on above: Performed By: #### P OCGLUC #### [facility] [address] [place] [address] Dr. David Magana ALBUMINon 12-28-2022 Albumin [Mass/Vol] 3.6 g/dL Normal 3.4-5.0 [facility] Comment on above: Performed By: #### C BC #### [facility] [address] [place] [address] Dr. David Magana GLYCOHEMOGLOBIN A1Con 2022 ADA RECOMMENDATION SEE BELOW Normal [facility] Comment on above: Result Comment: ADA RECOMMENDED LIMIT 4.0 - 6.0 ADA THERAPEUTIC TARGET < 7.0 ACTION SUGGESTED > 7.0 Performed By: #### P OCGLUC #### [facility] [address] [place] [address] Dr. David Magana Glucose [Mass/Vol] 140 mg/dL Normal [facility] Comment on above: Performed By: #### P OCGLUC #### [facility] [address] [place] [address] Dr. David Magana HbA1c (Bld) [Mass fraction] 6.5 % Critically high 4.5-6.2 [facility] Comment on above: Performed By: #### P OCGLUC #### [facility] [address] [place] [address] Dr. David Magana MAGNESIUMon 12-28-2022 Magnesium [Mass/Vol] 2.3 mg/dL Normal 1.8-2.4 [facility] Comment on above: Performed By: #### P OCGLUC #### [facility] [address] [address] [address] David Magana PROF CHEM 8 (BAS METB)on Anion gap [Moles/Vol] 13.2 mmol/L Normal [facility] Comment on above: Performed By: #### P OCGLUC #### [facility] [address] [address] [address] David Magana Calcium [Mass/Vol] 9.0 mg/dL Normal 8.5-10.1 [facility] Comment on above: Performed By: #### P OCGLUC #### [facility] [address] [address] [address] David Magana Chloride [Moles/Vol] 105 mmol/L Normal 98-107 [facility] Comment on above: Performed By: #### P OCGLUC #### [facility] [address] [address] [address] David Magana CO2 [Moles/Vol] 28.9 mmol/L Normal 21.0-32.0 [facility] Comment on above: Performed By: #### P OCGLUC #### [facility] [address] [address] [address] David Magana Creatinine [Mass/Vol] 1.66 mg/dL Critically high 0.70-1.30 [facility] Comment on above: Performed By: #### P OCGLUC #### [facility] [address] [address] [address] David Magana EGFR-AF UGANDAN 48 mL/min/1.73m2 Critically low >=60 [facility] Comment on above: Performed By: #### P OCGLUC #### [facility] [address] [address] [address] David Magana EGFR-NON AF UGANDAN 40 mL/min/1.73m2 Critically low >=60 [facility] Comment on above: Performed By: #### P OCGLUC #### [facility] [address] [address] [address] David Magana Glucose [Mass/Vol] 123 mg/dL Critically high 74-106 [facility] Comment on above: Performed By: #### P OCGLUC #### [facility] [address] [address] [address] David Magana Potassium [Moles/Vol] 4.1 mmol/L Normal 3.5-5.1 [facility] Comment on above: Performed By: #### P OCGLUC #### [facility] [address] [address] [address] David Magana Sodium [Moles/Vol] 143 mmol/L Normal 136-145 [facility] Comment on above: Performed By: #### P OCGLUC #### [facility] [address] [address] [address] David Magana Urea nitrogen [Mass/Vol] 29.0 mg/dL Critically high 7.0-18.0 [facility] Comment on above: Performed By: #### P OCGLUC #### [facility] [address] [address] [address] David Magana Urea nitrogen/Creatinine [Mass ratio] 17.5 mg/mg Normal [facility] Comment on above: Performed By: #### P OCGLUC #### [facility] [address] [address] [address] David Magana URINE T PROTEIN CREAT RATIOo n 12-28-2022 UR TOTAL PROTEIN <6.0 Normal <=12.0 [facility] Comment on above: Performed By: #### M ERICK Faith, PHOS #### [facility] [address] [address] [address] David Magana URINE CREAT 41.21 mg/dL Normal 20.00-300.00 [facility] Comment on above: Performed By: #### M Marcell BMP, PHOS #### [facility] [address] [address] [address] David Magana ALBUMINon 11-16-2022 Albumin [Mass/Vol] 3.3 g/dL Critically low 3.4-5.0 [facility] Comment on above: Performed By: #### C BC #### [facility] [address] [place] [address] Dr. David Magana CREATININE URINEon URINE CREAT 19.69 mg/dL Critically low 20.00-300.00 [facility] Comment on above: Performed By: #### M ERICK Faith, PHOS #### [facility] [address] [place] [address] Dr. David Magana HEMOGLOBINon 11-16-2022 Hemoglobin (Bld) [Mass/Vol] 14.9 g/dL Normal 14.0-18.0 [facility] Comment on above: Performed By: #### M ERICK Faith, PHOS #### [facility] [address] [place] [address] Dr. David Magana MAGNESIUMon 11-16-2022 Magnesium [Mass/Vol] 2.2 mg/dL Normal 1.8-2.4 [facility] Comment on above: Performed By: #### C BC #### [facility] [address] [place] [address] Dr. David Magana PHOSPHORUSon 11-16-2022 Phosphate [Mass/Vol] 3.9 mg/dL Normal 2.6-4.7 [facility] Comment on above: Performed By: #### C BC #### [facility] [address] [place] [address] Dr. David Magana PROF CHEM 8 (BAS METB)on Anion gap [Moles/Vol] 11.9 mmol/L Normal [facility] Comment on above: Performed By: #### C BC #### [facility] [address] [place] [address] Dr. David Magana Calcium [Mass/Vol] 8.8 mg/dL Normal 8.5-10.1 [facility] Comment on above: Performed By: #### C BC #### [facility] [address] [place] [address] Dr. David Magana Chloride [Moles/Vol] 104 mmol/L Normal 98-107 [facility] Comment on above: Performed By: #### C BC #### [facility] [address] [address] [address] David Magana CO2 [Moles/Vol] 27.4 mmol/L Normal 21.0-32.0 [facility] Comment on above: Performed By: #### C BC #### [facility] [address] [address] [address] David Magana Creatinine [Mass/Vol] 1.68 mg/dL Critically high 0.70-1.30 [facility] Comment on above: Performed By: #### C BC #### [facility] [address] [address] [address] David Magana EGFR-AF UGANDAN 48 mL/min/1.73m2 Critically low >=60 [facility] Comment on above: Performed By: #### C BC #### [facility] [address] [address] [address] David Magana EGFR-NON AF UGANDAN 39 mL/min/1.73m2 Critically low >=60 [facility] Comment on above: Performed By: #### C BC #### [facility] [address] [address] [address] David Magana Glucose [Mass/Vol] 212 mg/dL Critically high 74-106 [facility] Comment on above: Performed By: #### C BC #### [facility] [address] [address] [address] David Magana Potassium [Moles/Vol] 4.3 mmol/L Normal 3.5-5.1 [facility] Comment on above: Performed By: #### C BC #### [facility] [address] [address] [address] David Magana Sodium [Moles/Vol] 139 mmol/L Normal 136-145 [facility] Comment on above: Performed By: #### C BC #### [facility] [address] [address] [address] David Magana Urea nitrogen [Mass/Vol] 25.0 mg/dL Critically high 7.0-18.0 [facility] Comment on above: Performed By: #### C BC #### [facility] [address] [address] [address] David Magana Urea nitrogen/Creatinine [Mass ratio] 14.9 mg/mg Normal [facility] Comment on above: Performed By: #### C BC #### [facility] [address] [place] [address] Dr. David Magana PROTEIN RAND URINEon 023 UR PROT <5.0 Normal <=11.9 [facility] Comment on above: Performed By: #### M ERICK Faith PHOS #### [facility] [address] [place] [address] Dr. David Magana US CHANI DOP LEG [...] CLOVER PEREZ Date: 2022-11-02 16:21 Normal [facility] BNPon 07-22-2022 Natriuretic peptide B (Bld) [Mass/Vol] 2143.0 pg/mL Critically high <=1,800.0 [facility] Comment on above: Performed By: #### ERICK Jacques PHOS #### [facility] [address] [place] [address] Dr. David Magana CBC AUTO DIFFon 07-22-2022 BASO # 0.0 103/ul Normal 0.0-0.1 [facility] Comment on above: Performed By: #### A 1C #### [facility] [address] [place] [address] Dr. David Magana Basophils/100 WBC (Bld) 0.3 % Normal 0.2-2.0 [facility] Comment on above: Performed By: #### A 1C #### [facility] [address] [address] [address] David Magana EO # 0.3 103/ul Normal 0.0-0.7 [facility] Comment on above: Performed By: #### A 1C #### [facility] [address] [place] [address] Dr. David Magana Eosinophils/100 WBC (Bld) 2.4 % Normal 0.9-7.0 [facility] Comment on above: Performed By: #### A 1C #### [facility] [address] [place] [address] Dr. David Magana Erythrocyte distribution width (RBC) [Ratio] 13.4 % Normal 11.0-15.0 [facility] Comment on above: Performed By: #### A 1C #### [facility] [address] [place] [address] Dr. David Magana Hematocrit (Bld) [Volume fraction] 42.7 % Normal 42.0-54.0 [facility] Comment on above: Performed By: #### A 1C #### [facility] [address] [place] [address] Dr. David Magana Hemoglobin (Bld) [Mass/Vol] 14.2 g/dL Normal 14.0-18.0 [facility] Comment on above: Performed By: #### A 1C #### [facility] [address] [place] [address] Dr. David Magana IG # 0.18 10e3/ul Critically high 0.00-0.03 [facility] Comment on above: Performed By: #### A 1C #### [facility] [address] [place] [address] Dr. David Magana IG % 1.6 % Critically high 0.0-0.5 [facility] Comment on above: Performed By: #### A 1C #### [facility] [address] [place] [address] Dr. David Magana LYMPH # 0.9 103/ul Critically low 1.2-3.8 [facility] Comment on above: Performed By: #### A 1C #### [facility] [address] [address] [address] David Magana Lymphocytes/100 WBC (Bld) 8.1 % Critically low 20.5-60.0 [facility] Comment on above: Performed By: #### A 1C #### [facility] [address] [place] [address] Dr. David Magana MANUAL DIFF REQ NO Normal [facility] Comment on above: Performed By: #### A 1C #### [facility] [address] [address] [address] David Magana MCH (RBC) [Entitic mass] 33.3 pg Normal 25.9-34.0 [facility] Comment on above: Performed By: #### A 1C #### [facility] [address] [place] [address] Dr. David Magana MCHC (RBC) [Mass/Vol] 33.3 g/dL Normal 29.9-35.2 [facility] Comment on above: Performed By: #### A 1C #### [facility] [address] [place] [address] Dr. David Magana MCV (RBC) [Entitic vol] 100.2 fL Critically high 80.0-94.0 [facility] Comment on above: Performed By: #### A 1C #### [facility] [address] [place] [address] Dr. David Magana MONO # 1.2 103/ul Critically high 0.3-0.8 [facility] Comment on above: Performed By: #### A 1C #### [facility] [address] [place] [address] Dr. David Magana Monocytes/100 WBC (Bld) 10.5 % Normal 1.7-12.0 [facility] Comment on above: Performed By: #### A 1C #### [facility] [address] [place] [address] Dr. David Magana NEUT # 8.9 103/ul Critically high 1.4-6.5 [facility] Comment on above: Performed By: #### A 1C #### [facility] [address] [address] [address] David Magana Neutrophils/100 WBC (Bld) 77.1 % Critically high 43.0-75.0 [facility] Comment on above: Performed By: #### A 1C #### [facility] [address] [place] [address] Dr. David Magana Platelet mean volume (Bld) [Entitic vol] 11.3 fL Normal 9.5-13.5 [facility] Comment on above: Performed By: #### A 1C #### [facility] [address] [address] [address] David Magana PLT 175 103/ul Normal 150-450 [facility] Comment on above: Performed By: #### A 1C #### [facility] [address] [place] [address] Dr. David Magana RBC 4.26 106/ul Critically low 4.70-6.10 [facility] Comment on above: Performed By: #### A 1C #### [facility] [address] [place] [address] Dr. David Magana WBC 11.5 103/ul Critically high 4.0-11.0 [facility] Comment on above: Performed By: #### A 1C #### [facility] [address] [place] [address] Dr. David Magana PROF 14(COMP METB)on 022 Albumin [Mass/Vol] 2.6 g/dL Critically low 3.4-5.0 [facility] Comment on above: Performed By: #### M ERICK Faith, PHOS #### [facility] [address] [place] [address] Dr. David Magana Albumin/Globulin [Mass ratio] 0.9 {ratio} Normal [facility] Comment on above: Performed By: #### ERICK Jacques, PHOS #### [facility] [address] [place] [address] Dr. David Magana ALP [Catalytic activity/Vol] 49 U/L Normal 46-116 [facility] Comment on above: Performed By: #### M G, BMP, PHOS #### [facility] [address] [address] [address] David Magana ALT [Catalytic activity/Vol] 25 U/L Normal 16-63 [facility] Comment on above: Performed By: #### M G, BMP, PHOS #### [facility] [address] [address] [address] David Magana Anion gap [Moles/Vol] 12.8 mmol/L Normal [facility] Comment on above: Performed By: #### M G, BMP, PHOS #### [facility] [address] [address] [address] David Magana AST [Catalytic activity/Vol] 9 U/L Critically low 15-37 [facility] Comment on above: Performed By: #### M G, BMP, PHOS #### [facility] [address] [place] [address] Dr. David Magana Bilirubin [Mass/Vol] 0.5 mg/dL Normal 0.2-1.0 [facility] Comment on above: Performed By: #### M G, BMP, PHOS #### [facility] [address] [address] [address] David Magana Calcium [Mass/Vol] 8.3 mg/dL Critically low 8.5-10.1 [facility] Comment on above: Performed By: #### M G, BMP, PHOS #### [facility] [address] [address] [address] David Magana Chloride [Moles/Vol] 105 mmol/L Normal 98-107 [facility] Comment on above: Performed By: #### M G, BMP, PHOS #### [facility] [address] [address] [address] David Magana CO2 [Moles/Vol] 24.2 mmol/L Normal 21.0-32.0 [facility] Comment on above: Performed By: #### M G, BMP, PHOS #### [facility] [address] [address] [address] David Magana Creatinine [Mass/Vol] 1.28 mg/dL Normal 0.70-1.30 [facility] Comment on above: Performed By: #### M G, BMP, PHOS #### [facility] [address] [place] [address] Dr. David Magana EGFR-AF UGANDAN >60 Normal >=60 [facility] Comment on above: Performed By: #### M G, BMP, PHOS #### [facility] [address] [place] [address] Dr. David Magana EGFR-NON AF UGANDAN 54 mL/min/1.73m2 Critically low >=60 [facility] Comment on above: Performed By: #### M G, BMP, PHOS #### [facility] [address] [place] [address] Dr. David Magana Globulin (S) [Mass/Vol] 2.9 g/dL Normal [facility] Comment on above: Performed By: #### M Marcell, BMP, PHOS #### [facility] [address] [place] [address] Dr. David Magana Glucose [Mass/Vol] 205 mg/dL Critically high 74-106 [facility] Comment on above: Performed By: #### M Marcell BMP, PHOS #### [facility] [address] [place] [address] Dr. David Magana Potassium [Moles/Vol] 4.0 mmol/L Normal 3.5-5.1 [facility] Comment on above: Performed By: #### M G, BMP, PHOS #### [facility] [address] [place] [address] Dr. David Magana Protein [Mass/Vol] 5.5 g/dL Critically low 6.4-8.2 [facility] Comment on above: Performed By: #### M G, BMP, PHOS #### [facility] [address] [place] [address] Dr. David Magana Sodium [Moles/Vol] 138 mmol/L Normal 136-145 [facility] Comment on above: Performed By: #### M G, BMP, PHOS #### [facility] [address] [place] [address] Dr. David Magana Urea nitrogen [Mass/Vol] 36.0 mg/dL Critically high 7.0-18.0 [facility] Comment on above: Performed By: #### M ERICK Faith PHOS #### [facility] [address] [place] [address] Dr. David Magana Urea nitrogen/Creatinine [Mass ratio] 28.1 mg/mg Normal [facility] Comment on above: Performed By: #### ERICK Jacques PHOS #### [facility] [address] [place] [address] Dr. David Magana BNPon 07-21-2022 Natriuretic peptide B (Bld) [Mass/Vol] 3485.0 pg/mL Critically high <=1,800.0 [facility] Comment on above: Result Comment: repe ated Performed By: #### A 1C #### [facility] [address] [place] [address] Dr. David Magana CBC AUTO DIFFon 07-21-2022 BASO # 0.0 103/ul Normal 0.0-0.1 [facility] Comment on above: Performed By: #### C BC #### [facility] [address] [place] [address] Dr. David Magana Basophils/100 WBC (Bld) 0.3 % Normal 0.2-2.0 [facility] Comment on above: Performed By: #### C BC #### [facility] [address] [place] [address] Dr. David Magana EO # 0.2 103/ul Normal 0.0-0.7 [facility] Comment on above: Performed By: #### C BC #### [facility] [address] [place] [address] Dr. David Magana Eosinophils/100 WBC (Bld) 1.9 % Normal 0.9-7.0 [facility] Comment on above: Performed By: #### C BC #### [facility] [address] [place] [address] Dr. David Magana Erythrocyte distribution width (RBC) [Ratio] 13.4 % Normal 11.0-15.0 [facility] Comment on above: Performed By: #### C BC #### [facility] [address] [place] [address] Dr. David Magana Hematocrit (Bld) [Volume fraction] 42.5 % Normal 42.0-54.0 [facility] Comment on above: Performed By: #### C BC #### [facility] [address] [place] [address] Dr. David Magana Hemoglobin (Bld) [Mass/Vol] 14.2 g/dL Normal 14.0-18.0 [facility] Comment on above: Performed By: #### C BC #### [facility] [address] [place] [address] Dr. David Magana IG # 0.22 10e3/ul Critically high 0.00-0.03 [facility] Comment on above: Performed By: #### C BC #### [facility] [address] [place] [address] Dr. David Magana IG % 2.1 % Critically high 0.0-0.5 [facility] Comment on above: Performed By: #### C BC #### [facility] [address] [place] [address] Dr. David Magana LYMPH # 0.8 103/ul Critically low 1.2-3.8 [facility] Comment on above: Performed By: #### C BC #### [facility] [address] [place] [address] Dr. David Magana Lymphocytes/100 WBC (Bld) 7.7 % Critically low 20.5-60.0 [facility] Comment on above: Performed By: #### C BC #### [facility] [address] [place] [address] Dr. David Magana MANUAL DIFF REQ NO Normal [facility] Comment on above: Performed By: #### C BC #### [facility] [address] [place] [address] Dr. David Magana MCH (RBC) [Entitic mass] 33.0 pg Normal 25.9-34.0 [facility] Comment on above: Performed By: #### C BC #### [facility] [address] [address] [address] David Magana MCHC (RBC) [Mass/Vol] 33.4 g/dL Normal 29.9-35.2 [facility] Comment on above: Performed By: #### C BC #### [facility] [address] [address] [address] David Magana MCV (RBC) [Entitic vol] 98.8 fL Critically high 80.0-94.0 [facility] Comment on above: Performed By: #### C BC #### [facility] [address] [address] [address] David Magana MONO # 1.0 103/ul Critically high 0.3-0.8 [facility] Comment on above: Performed By: #### C BC #### [facility] [address] [address] [address] David Magana Monocytes/100 WBC (Bld) 9.7 % Normal 1.7-12.0 [facility] Comment on above: Performed By: #### C BC #### [facility] [address] [address] [address] David Magana NEUT # 8.1 103/ul Critically high 1.4-6.5 [facility] Comment on above: Performed By: #### C BC #### [facility] [address] [address] [address] David Magana Neutrophils/100 WBC (Bld) 78.3 % Critically high 43.0-75.0 [facility] Comment on above: Performed By: #### C BC #### [facility] [address] [address] [address] David Magana Platelet mean volume (Bld) [Entitic vol] 10.7 fL Normal 9.5-13.5 [facility] Comment on above: Performed By: #### C BC #### [facility] [address] [address] [address] David Magana PLT 177 103/ul Normal 150-450 [facility] Comment on above: Performed By: #### C BC #### [facility] [address] [address] [address] David Magana RBC 4.30 106/ul Critically low 4.70-6.10 [facility] Comment on above: Performed By: #### C BC #### [facility] [address] [place] [address] Dr. David Magana WBC 10.4 103/ul Normal 4.0-11.0 [facility] Comment on above: Performed By: #### C BC #### [facility] [address] [place] [address] Dr. David Magana PROF 14(COMP METB)on 022 Albumin [Mass/Vol] 2.6 g/dL Critically low 3.4-5.0 [facility] Comment on above: Performed By: #### A 1C #### [facility] [address] [place] [address] Dr. David Magana Albumin/Globulin [Mass ratio] 1.0 {ratio} Normal [facility] Comment on above: Performed By: #### A 1C #### [facility] [address] [place] [address] Dr. Dvaid Magana ALP [Catalytic activity/Vol] 50 U/L Normal 46-116 [facility] Comment on above: Performed By: #### A 1C #### [facility] [address] [place] [address] Dr. David Magana ALT [Catalytic activity/Vol] 28 U/L Normal 16-63 [facility] Comment on above: Performed By: #### A 1C #### [facility] [address] [place] [address] Dr. David Magana Anion gap [Moles/Vol] 11.4 mmol/L Normal [facility] Comment on above: Performed By: #### A 1C #### [facility] [address] [place] [address] Dr. David Magana AST [Catalytic activity/Vol] 13 U/L Critically low 15-37 [facility] Comment on above: Performed By: #### A 1C #### [facility] [address] [address] [address] David Magana Bilirubin [Mass/Vol] 0.4 mg/dL Normal 0.2-1.0 [facility] Comment on above: Performed By: #### A 1C #### [facility] [address] [address] [address] David Magana Calcium [Mass/Vol] 8.4 mg/dL Critically low 8.5-10.1 [facility] Comment on above: Performed By: #### A 1C #### [facility] [address] [address] [address] David Magana Chloride [Moles/Vol] 107 mmol/L Normal 98-107 [facility] Comment on above: Performed By: #### A 1C #### [facility] [address] [place] [address] Dr. David Magana CO2 [Moles/Vol] 24.6 mmol/L Normal 21.0-32.0 [facility] Comment on above: Performed By: #### A 1C #### [facility] [address] [place] [address] Dr. David Magana Creatinine [Mass/Vol] 1.26 mg/dL Normal 0.70-1.30 [facility] Comment on above: Performed By: #### A 1C #### [facility] [address] [place] [address] Dr. David Magana EGFR-AF UGANDAN >60 Normal >=60 [facility] Comment on above: Performed By: #### A 1C #### [facility] [address] [place] [address] Dr. David Magana EGFR-NON AF UGANDAN 55 mL/min/1.73m2 Critically low >=60 [facility] Comment on above: Performed By: #### A 1C #### [facility] [address] [place] [address] Dr. David Magana Globulin (S) [Mass/Vol] 2.7 g/dL Normal [facility] Comment on above: Performed By: #### A 1C #### [facility] [address] [address] [address] David Magana Glucose [Mass/Vol] 203 mg/dL Critically high 74-106 [facility] Comment on above: Performed By: #### A 1C #### [facility] [address] [place] [address] Dr. David Magana Potassium [Moles/Vol] 4.0 mmol/L Normal 3.5-5.1 [facility] Comment on above: Performed By: #### A 1C #### [facility] [address] [place] [address] Dr. David Magana Protein [Mass/Vol] 5.3 g/dL Critically low 6.4-8.2 [facility] Comment on above: Performed By: #### A 1C #### [facility] [address] [place] [address] Dr. David Magana Sodium [Moles/Vol] 139 mmol/L Normal 136-145 [facility] Comment on above: Performed By: #### A 1C #### [facility] [address] [place] [address] Dr. David Magana Urea nitrogen [Mass/Vol] 33.0 mg/dL Critically high 7.0-18.0 [facility] Comment on above: Performed By: #### A 1C #### [facility] [address] [place] [address] Dr. David Magana Urea nitrogen/Creatinine [Mass ratio] 26.2 mg/mg Normal [facility] Comment on above: Performed By: #### A 1C #### [facility] [address] [place] [address] Dr. David Magana BNPon 07-20-2022 Natriuretic peptide B (Bld) [Mass/Vol] 7478.0 pg/mL Critically high <=1,800.0 [facility] Comment on above: Performed By: #### A 1C #### [facility] [address] [place] [address] Dr. David Magana CBC AUTO DIFFon 07-20-2022 BASO # 0.1 103/ul Normal 0.0-0.1 [facility] Comment on above: Performed By: #### M Marcell BMP, PHOS #### [facility] [address] [place] [address] Dr. David Magana Basophils/100 WBC (Bld) 0.8 % Normal 0.2-2.0 [facility] Comment on above: Performed By: #### M G, BMP, PHOS #### [facility] [address] [place] [address] Dr. David Magana EO # 0.1 103/ul Normal 0.0-0.7 [facility] Comment on above: Performed By: #### M G, BMP, PHOS #### [facility] [address] [place] [address] Dr. David Magana Eosinophils/100 WBC (Bld) 0.6 % Critically low 0.9-7.0 [facility] Comment on above: Performed By: #### M ERICK Faith, PHOS #### [facility] [address] [place] [address] Dr. David Magana Erythrocyte distribution width (RBC) [Ratio] 13.4 % Normal 11.0-15.0 [facility] Comment on above: Performed By: #### M ERICK Faith, PHOS #### [facility] [address] [place] [address] Dr. David Magana Hematocrit (Bld) [Volume fraction] 43.2 % Normal 42.0-54.0 [facility] Comment on above: Performed By: #### M ERICK Faith, PHOS #### [facility] [address] [place] [address] Dr. David Magana Hemoglobin (Bld) [Mass/Vol] 14.2 g/dL Normal 14.0-18.0 [facility] Comment on above: Performed By: #### M ERICK Faith, PHOS #### [facility] [address] [place] [address] Dr. David Magana IG # 0.21 10e3/ul Critically high 0.00-0.03 [facility] Comment on above: Performed By: #### M ERICK Faith, PHOS #### [facility] [address] [place] [address] Dr. David Magana IG % 2.0 % Critically high 0.0-0.5 [facility] Comment on above: Performed By: #### M ERICK Faith, PHOS #### [facility] [address] [place] [address] Dr. David Magana LYMPH # 0.8 103/ul Critically low 1.2-3.8 [facility] Comment on above: Performed By: #### M ERICK Faith, PHOS #### [facility] [address] [place] [address] Dr. David Magana Lymphocytes/100 WBC (Bld) 7.7 % Critically low 20.5-60.0 [facility] Comment on above: Performed By: #### M ERICK Faith, PHOS #### [facility] [address] [place] [address] Dr. David Magana MANUAL DIFF REQ NO Normal [facility] Comment on above: Performed By: #### M ERICK Faith, PHOS #### [facility] [address] [place] [address] Dr. David Magana MCH (RBC) [Entitic mass] 33.2 pg Normal 25.9-34.0 [facility] Comment on above: Performed By: #### M ERICK Faith, PHOS #### [facility] [address] [place] [address] Dr. David Magana MCHC (RBC) [Mass/Vol] 32.9 g/dL Normal 29.9-35.2 [facility] Comment on above: Performed By: #### M ERICK Faith, PHOS #### [facility] [address] [place] [address] Dr. David Magana MCV (RBC) [Entitic vol] 100.9 fL Critically high 80.0-94.0 [facility] Comment on above: Performed By: #### M ERICK Faith, PHOS #### [facility] [address] [place] [address] Dr. David Magana MONO # 1.0 103/ul Critically high 0.3-0.8 [facility] Comment on above: Performed By: #### M Marcell BMP, PHOS #### [facility] [address] [address] [address] David Magana Monocytes/100 WBC (Bld) 10.0 % Normal 1.7-12.0 [facility] Comment on above: Performed By: #### M G, BMP, PHOS #### [facility] [address] [place] [address] Dr. David Magana NEUT # 8.1 103/ul Critically high 1.4-6.5 [facility] Comment on above: Performed By: #### M Marcell BMP, PHOS #### [facility] [address] [place] [address] Dr. David Magana Neutrophils/100 WBC (Bld) 78.9 % Critically high 43.0-75.0 [facility] Comment on above: Performed By: #### ERICK Jacques, PHOS #### [facility] [address] [place] [address] Dr. David Magana Platelet mean volume (Bld) [Entitic vol] 10.8 fL Normal 9.5-13.5 [facility] Comment on above: Performed By: #### Jim Faith BMP, PHOS #### [facility] [address] [place] [address] Dr. David Magana PLT 172 103/ul Normal 150-450 [facility] Comment on above: Performed By: #### M Marcell BMP, PHOS #### [facility] [address] [place] [address] Dr. David Magana RBC 4.28 106/ul Critically low 4.70-6.10 [facility] Comment on above: Performed By: #### M Marcell BMP, PHOS #### [facility] [address] [place] [address] Dr. David Magana WBC 10.3 103/ul Normal 4.0-11.0 [facility] Comment on above: Performed By: #### M Marcell BMP, PHOS #### [facility] [address] [place] [address] Dr. David Magana CULTURE URINEon 07-20-2022 CULTURE [...] F Trimethoprim/Sulfame thoxazole >=320 R F Normal [facility] Comment on above: Performed By: #### M ERICK Faith PHOS #### [facility] [address] [place] [address] Dr. David Magana PROF 14(COMP METB)on 022 Albumin [Mass/Vol] 2.6 g/dL Critically low 3.4-5.0 [facility] Comment on above: Performed By: #### A 1C #### [facility] [address] [place] [address] Dr. David Magana Albumin/Globulin [Mass ratio] 0.9 {ratio} Normal [facility] Comment on above: Performed By: #### A 1C #### [facility] [address] [place] [address] Dr. David Magana ALP [Catalytic activity/Vol] 48 U/L Normal 46-116 [facility] Comment on above: Performed By: #### A 1C #### [facility] [address] [place] [address] Dr. David Magana ALT [Catalytic activity/Vol] 27 U/L Normal 16-63 [facility] Comment on above: Performed By: #### A 1C #### [facility] [address] [place] [address] Dr. David Magana Anion gap [Moles/Vol] 13.4 mmol/L Normal [facility] Comment on above: Performed By: #### A 1C #### [facility] [address] [address] [address] David Magana AST [Catalytic activity/Vol] 22 U/L Normal 15-37 [facility] Comment on above: Performed By: #### A 1C #### [facility] [address] [address] [address] David Magana Bilirubin [Mass/Vol] 0.5 mg/dL Normal 0.2-1.0 [facility] Comment on above: Performed By: #### A 1C #### [facility] [address] [address] [address] David Magana Calcium [Mass/Vol] 8.3 mg/dL Critically low 8.5-10.1 [facility] Comment on above: Performed By: #### A 1C #### [facility] [address] [address] [address] David Magana Chloride [Moles/Vol] 105 mmol/L Normal 98-107 [facility] Comment on above: Performed By: #### A 1C #### [facility] [address] [place] [address] Dr. David Magana CO2 [Moles/Vol] 21.0 mmol/L Normal 21.0-32.0 [facility] Comment on above: Performed By: #### A 1C #### [facility] [address] [address] [address] David Magana Creatinine [Mass/Vol] 1.38 mg/dL Critically high 0.70-1.30 [facility] Comment on above: Performed By: #### A 1C #### [facility] [address] [address] [address] David Magana EGFR-AF UGANDAN 60 mL/min/1.73m2 Normal >=60 [facility] Comment on above: Performed By: #### A 1C #### [facility] [address] [address] [address] David Magana EGFR-NON AF UGANDAN 49 mL/min/1.73m2 Critically low >=60 [facility] Comment on above: Performed By: #### A 1C #### [facility] [address] [place] [address] Dr. David Magana Globulin (S) [Mass/Vol] 2.8 g/dL Normal [facility] Comment on above: Performed By: #### A 1C #### [facility] [address] [place] [address] Dr. David Magana Glucose [Mass/Vol] 156 mg/dL Critically high 74-106 [facility] Comment on above: Performed By: #### A 1C #### [facility] [address] [place] [address] Dr. David Magana Potassium [Moles/Vol] 4.4 mmol/L Normal 3.5-5.1 [facility] Comment on above: Performed By: #### A 1C #### [facility] [address] [place] [address] Dr. David Magana Protein [Mass/Vol] 5.4 g/dL Critically low 6.4-8.2 [facility] Comment on above: Performed By: #### A 1C #### [facility] [address] [place] [address] Dr. David Magana Sodium [Moles/Vol] 135 mmol/L Critically low 136-145 [facility] Comment on above: Performed By: #### A 1C #### [facility] [address] [place] [address] Dr. David Magana Urea nitrogen [Mass/Vol] 40.0 mg/dL Critically high 7.0-18.0 [facility] Comment on above: Performed By: #### A 1C #### [facility] [address] [place] [address] Dr. David Magana Urea nitrogen/Creatinine [Mass ratio] 29.0 mg/mg Normal [facility] Comment on above: Performed By: #### A 1C #### [facility] [address] [place] [address] Dr. David Magana BNPon 07-19-2022 Natriuretic peptide B (Bld) [Mass/Vol] 45772.0 pg/mL Critically high <=1,800.0 [facility] Comment on above: Performed By: #### [facility] #### [facility] [address] [address] [address] David Magana CBC AUTO DIFFon 07-19-2022 BASO # 0.0 103/ul Normal 0.0-0.1 [facility] Comment on above: Performed By: #### C BC #### [facility] [address] [address] [address] David Magana Basophils/100 WBC (Bld) 0.3 % Normal 0.2-2.0 [facility] Comment on above: Performed By: #### C BC #### [facility] [address] [place] [address] Dr. David Magana EO # 0.0 103/ul Normal 0.0-0.7 [facility] Comment on above: Performed By: #### C BC #### [facility] [address] [place] [address] Dr. David Magana Eosinophils/100 WBC (Bld) 0.2 % Critically low 0.9-7.0 [facility] Comment on above: Performed By: #### C BC #### [facility] [address] [place] [address] Dr. David Magana Erythrocyte distribution width (RBC) [Ratio] 13.4 % Normal 11.0-15.0 [facility] Comment on above: Performed By: #### C BC #### [facility] [address] [place] [address] Dr. David Magana Hematocrit (Bld) [Volume fraction] 43.4 % Normal 42.0-54.0 [facility] Comment on above: Performed By: #### C BC #### [facility] [address] [place] [address] Dr. David Magana Hemoglobin (Bld) [Mass/Vol] 14.6 g/dL Normal 14.0-18.0 [facility] Comment on above: Performed By: #### C BC #### [facility] [address] [place] [address] Dr. David Magana IG # 0.18 10e3/ul Critically high 0.00-0.03 [facility] Comment on above: Performed By: #### C BC #### [facility] [address] [address] [address] David Magana IG % 1.5 % Critically high 0.0-0.5 [facility] Comment on above: Performed By: #### C BC #### [facility] [address] [address] [address] David Magana LYMPH # 0.8 103/ul Critically low 1.2-3.8 [facility] Comment on above: Performed By: #### C BC #### [facility] [address] [place] [address] Dr. David Magana Lymphocytes/100 WBC (Bld) 6.6 % Critically low 20.5-60.0 [facility] Comment on above: Performed By: #### C BC #### [facility] [address] [place] [address] Dr. David Magana MANUAL DIFF REQ NO Normal [facility] Comment on above: Performed By: #### C BC #### [facility] [address] [place] [address] Dr. David Magana MCH (RBC) [Entitic mass] 33.7 pg Normal 25.9-34.0 [facility] Comment on above: Performed By: #### C BC #### [facility] [address] [place] [address] Dr. David Magana MCHC (RBC) [Mass/Vol] 33.6 g/dL Normal 29.9-35.2 [facility] Comment on above: Performed By: #### C BC #### [facility] [address] [place] [address] Dr. David Magana MCV (RBC) [Entitic vol] 100.2 fL Critically high 80.0-94.0 [facility] Comment on above: Performed By: #### C BC #### [facility] [address] [place] [address] Dr. David Magana MONO # 1.1 103/ul Critically high 0.3-0.8 [facility] Comment on above: Performed By: #### C BC #### [facility] [address] [address] [address] David Magana Monocytes/100 WBC (Bld) 9.3 % Normal 1.7-12.0 [facility] Comment on above: Performed By: #### C BC #### [facility] [address] [address] [address] David Magana NEUT # 9.6 103/ul Critically high 1.4-6.5 [facility] Comment on above: Performed By: #### C BC #### [facility] [address] [address] [address] David Magana Neutrophils/100 WBC (Bld) 82.1 % Critically high 43.0-75.0 [facility] Comment on above: Performed By: #### C BC #### [facility] [address] [place] [address] Dr. David Magana Platelet mean volume (Bld) [Entitic vol] 10.8 fL Normal 9.5-13.5 [facility] Comment on above: Performed By: #### C BC #### [facility] [address] [address] [address] David Magana PLT 202 103/ul Normal 150-450 [facility] Comment on above: Performed By: #### C BC #### [facility] [address] [place] [address] Dr. David Magana RBC 4.33 106/ul Critically low 4.70-6.10 [facility] Comment on above: Performed By: #### C BC #### [facility] [address] [address] [address] David Magana WBC 11.7 103/ul Critically high 4.0-11.0 [facility] Comment on above: Performed By: #### C BC #### [facility] [address] [place] [address] Dr. David Magana PROF 14(COMP METB)on 022 Albumin [Mass/Vol] 3.4 g/dL Normal 3.4-5.0 [facility] Comment on above: Performed By: #### A 1C #### [facility] [address] [place] [address] Dr. David Magana Albumin/Globulin [Mass ratio] 1.1 {ratio} Normal [facility] Comment on above: Performed By: #### A 1C #### [facility] [address] [place] [address] Dr. David Magana ALP [Catalytic activity/Vol] 63 U/L Normal 46-116 [facility] Comment on above: Performed By: #### A 1C #### [facility] [address] [place] [address] Dr. David Magana ALT [Catalytic activity/Vol] 34 U/L Normal 16-63 [facility] Comment on above: Performed By: #### A 1C #### [facility] [address] [place] [address] Dr. David Magana Anion gap [Moles/Vol] 20.9 mmol/L Normal [facility] Comment on above: Performed By: #### A 1C #### [facility] [address] [place] [address] Dr. David Magana AST [Catalytic activity/Vol] 18 U/L Normal 15-37 [facility] Comment on above: Performed By: #### A 1C #### [facility] [address] [place] [address] Dr. David Magana Bilirubin [Mass/Vol] 0.5 mg/dL Normal 0.2-1.0 [facility] Comment on above: Performed By: #### A 1C #### [facility] [address] [place] [address] Dr. David Magana Calcium [Mass/Vol] 8.5 mg/dL Normal 8.5-10.1 [facility] Comment on above: Performed By: #### A 1C #### [facility] [address] [place] [address] Dr. David Magana Chloride [Moles/Vol] 99 mmol/L Normal 98-107 [facility] Comment on above: Performed By: #### A 1C #### [facility] [address] [place] [address] Dr. David Magana CO2 [Moles/Vol] 19.1 mmol/L Critically low 21.0-32.0 [facility] Comment on above: Performed By: #### A 1C #### [facility] [address] [address] [address] David Magana Creatinine [Mass/Vol] 1.80 mg/dL Critically high 0.70-1.30 [facility] Comment on above: Performed By: #### A 1C #### [facility] [address] [address] [address] David Magana EGFR-AF UGANDAN 44 mL/min/1.73m2 Critically low >=60 [facility] Comment on above: Performed By: #### A 1C #### [facility] [address] [address] [address] David Magana EGFR-NON AF UGANDAN 36 mL/min/1.73m2 Critically low >=60 [facility] Comment on above: Performed By: #### A 1C #### [facility] [address] [address] [address] David Magana Globulin (S) [Mass/Vol] 3.2 g/dL Normal [facility] Comment on above: Performed By: #### A 1C #### [facility] [address] [address] [address] David Magana Glucose [Mass/Vol] 287 mg/dL Critically high 74-106 [facility] Comment on above: Performed By: #### A 1C #### [facility] [address] [address] [address] David Magana Potassium [Moles/Vol] 5.0 mmol/L Normal 3.5-5.1 [facility] Comment on above: Performed By: #### A 1C #### [facility] [address] [address] [address] David Magana Protein [Mass/Vol] 6.6 g/dL Normal 6.4-8.2 [facility] Comment on above: Performed By: #### A 1C #### [facility] [address] [address] [address] David Magana Sodium [Moles/Vol] 134 mmol/L Critically low 136-145 [facility] Comment on above: Performed By: #### A 1C #### [facility] [address] [address] [address] David Magana Urea nitrogen [Mass/Vol] 51.0 mg/dL Critically high 7.0-18.0 [facility] Comment on above: Performed By: #### A 1C #### [facility] [address] [address] [address] David Magana Urea nitrogen/Creatinine [Mass ratio] 28.3 mg/mg [facility] Comment on above: Performed By: #### A 1C #### [facility] [address] [place] [address] Dr. David Mag[facility] 02 MODE NASAL CANNULA [facility] Comment on above: Performed By: #### A 1C #### [facility] [address] [address] [address] David Magana ALLENS TEST Positive [facility] Comment on above: Performed By: #### A 1C #### [facility] [address] [place] [address] Dr. David Magana Base excess Calc (Bld) [Moles/Vol] -9.0000 mmol/L Critically low -2.0-2.0 [facility] Comment on above: Performed By: #### A 1C #### [facility] [address] [place] [address] Dr. Dvaid Magana BIPAP PRESSURE [facility] Comment on above: Performed By: #### A 1C #### [facility] [address] [address] [address] David Magana CPAP [facility] Comment on above: Performed By: #### A 1C #### [facility] [address] [place] [address] Dr. David Magana FIO2 [facility] Comment on above: Performed By: #### A 1C #### [facility] [address] [place] [address] Dr. David Magana HCO3 (Bld) [Moles/Vol] 18.4 mmol/L Critically low 22.0-26.0 [facility] Comment on above: Performed By: #### A 1C #### [facility] [address] [place] [address] Dr. David Magana LPM 1.5 Normal [facility] Comment on above: Performed By: #### A 1C #### [facility] [address] [place] [address] Dr. David Magana MINUTE VOLUME Normal [facility] Comment on above: Performed By: #### A 1C #### [facility] [address] [place] [address] Dr. David Magana Oxygen (Bld) [Partial pressure] 69.5 mm[Hg] Critically low 80.0-100.0 [facility] Comment on above: Performed By: #### A 1C #### [facility] [address] [place] [address] Dr. David Magana Oxygen saturation in Blood 94.2 % Critically low 95.0-100.0 [facility] Comment on above: Performed By: #### A 1C #### [facility] [address] [place] [address] Dr. David Magana PCO2 29.6 mmHg Critically low 35.0-45.0 [facility] Comment on above: Performed By: #### A 1C #### [facility] [address] [place] [address] Dr. David Magana PEEP Normal [facility] Comment on above: Performed By: #### A 1C #### [facility] [address] [place] [address] Dr. David Magana pH (Bld) 7.355 [pH] Normal 7.350-7.450 [facility] Comment on above: Performed By: #### A 1C #### [facility] [address] [place] [address] Dr. David Magana PIP Normal [facility] Comment on above: Performed By: #### A 1C #### [facility] [address] [place] [address] Dr. David Magana PS [facility] Comment on above: Performed By: #### A 1C #### [facility] [address] [place] [address] Dr. David Magana PUNCTURE SITE LR [facility] Comment on above: Performed By: #### A 1C #### [facility] [address] [place] [address] Dr. David Magana RATE [facility] Comment on above: Performed By: #### A 1C #### [facility] [address] [place] [address] Dr. David Magana VENT MODE [facility] Comment on above: Performed By: #### A 1C #### [facility] [address] [place] [address] Dr. David Magana [facility] Comment on above: Performed By: #### A 1C #### [facility] [address] [place] [address] Dr. David Magana BNPon 07-18-2022 Natriuretic peptide B (Bld) [Mass/Vol] 7047.0 pg/mL Critically high <=1,800.0 [facility] Comment on above: Performed By: #### C VDTB #### [facility] [address] [place] [address] Dr. David Magana CARDIAC BARRIE 3-6on 2 CK [Catalytic activity/Vol] 396 U/L Critically high 39-308 [facility] Comment on above: Performed By: #### M G, BMP, PHOS #### [facility] [address] [place] [address] Dr. David Magana CK.MB [Mass/Vol] 2.94 ng/mL Normal <=3.60 [facility] Comment on above: Performed By: #### M G, BMP, PHOS #### [facility] [address] [place] [address] Dr. David Magana HSTROP 11.1 pg/mL Normal 4.0-76.1 [facility] Comment on above: Result Comment: CUT- OFF POINTS HAVE BEEN ESTABLISHED BASED ON THE FOURTH UNIVERSAL DEFINITIONS OF MYOCARDIAL INFARCTION. THE UPPER REFERENCE LIMIT (URL) OF TROPONIN, DEFINED THE 99TH PERCENTILE OF cTnI DISTRIBUTION IN A REFERENCE POPULATION, HAS BEEN CONFIRMED THE DECISION THRESHOLD FOR NM DIAGNOSIS. Performed By: #### M ERICK Faith, PHOS #### [facility] [address] [place] [address] Dr. David Magana CK [Catalytic activity/Vol] 58 U/L Normal 39-308 [facility] Comment on above: Performed By: #### M ERICK Faith, PHOS #### [facility] [address] [place] [address] Dr. David Magana CK.MB [Mass/Vol] 1.71 ng/mL Normal <=3.60 [facility] Comment on above: Performed By: #### ERICK Jacques, PHOS #### [facility] [address] [place] [address] Dr. David Magana HSTROP 10.6 pg/mL Normal 4.0-76.1 [facility] Comment on above: Result Comment: CUT- OFF POINTS HAVE BEEN ESTABLISHED BASED ON THE FOURTH UNIVERSAL DEFINITIONS OF MYOCARDIAL INFARCTION. THE UPPER REFERENCE LIMIT (URL) OF TROPONIN, DEFINED THE 99TH PERCENTILE OF cTnI DISTRIBUTION IN A REFERENCE POPULATION, HAS BEEN CONFIRMED THE DECISION THRESHOLD FOR NM DIAGNOSIS. Performed By: #### M ERICK Faith, PHOS #### [facility] [address] [place] [address] Dr. David Magana CBC AUTO DIFFon 07-18-2022 BASO # 0.0 103/ul Normal 0.0-0.1 [facility] Comment on above: Performed By: #### M ERICK Faith, PHOS #### [facility] [address] [place] [address] Dr. David Magana Basophils/100 WBC (Bld) 0.2 % Normal 0.2-2.0 [facility] Comment on above: Performed By: #### M ERICK Faith, PHOS #### [facility] [address] [place] [address] Dr. David Magana EO # 0.0 103/ul Normal 0.0-0.7 [facility] Comment on above: Performed By: #### M ERICK Faith, PHOS #### [facility] [address] [place] [address] Dr. David Magana Eosinophils/100 WBC (Bld) 0.2 % Critically low 0.9-7.0 [facility] Comment on above: Performed By: #### ERICK Jacques, PHOS #### [facility] [address] [place] [address] Dr. David Magana Erythrocyte distribution width (RBC) [Ratio] 13.2 % Normal 11.0-15.0 [facility] Comment on above: Performed By: #### M ERICK Faith, PHOS #### [facility] [address] [place] [address] Dr. David Magana Hematocrit (Bld) [Volume fraction] 43.8 % Normal 42.0-54.0 [facility] Comment on above: Performed By: #### ERICK Jacques, PHOS #### [facility] [address] [place] [address] Dr. David Magana Hemoglobin (Bld) [Mass/Vol] 14.5 g/dL Normal 14.0-18.0 [facility] Comment on above: Performed By: #### ERICK Jacques, PHOS #### [facility] [address] [place] [address] Dr. David Magana IG # 0.15 10e3/ul Critically high 0.00-0.03 [facility] Comment on above: Performed By: #### ERICK Jacques, PHOS #### [facility] [address] [place] [address] Dr. David Magana IG % 1.3 % Critically high 0.0-0.5 [facility] Comment on above: Performed By: #### M ERICK Faith, PHOS #### [facility] [address] [place] [address] Dr. David Magana LYMPH # 0.5 103/ul Critically low 1.2-3.8 [facility] Comment on above: Performed By: #### ERICK Jacques, PHOS #### [facility] [address] [address] [address] David Magana Lymphocytes/100 WBC (Bld) 3.8 % Critically low 20.5-60.0 [facility] Comment on above: Performed By: #### M G, BMP, PHOS #### [facility] [address] [address] [address] David Magana MANUAL DIFF REQ NO Normal [facility] Comment on above: Performed By: #### M G, BMP, PHOS #### [facility] [address] [place] [address] Dr. David Magana MCH (RBC) [Entitic mass] 32.7 pg Normal 25.9-34.0 [facility] Comment on above: Performed By: #### M G, BMP, PHOS #### [facility] [address] [place] [address] Dr. David Magana MCHC (RBC) [Mass/Vol] 33.1 g/dL Normal 29.9-35.2 [facility] Comment on above: Performed By: #### M G, BMP, PHOS #### [facility] [address] [place] [address] Dr. David Magana MCV (RBC) [Entitic vol] 98.9 fL Critically high 80.0-94.0 [facility] Comment on above: Performed By: #### M Marcell, BMP, PHOS #### [facility] [address] [place] [address] Dr. David Magana MONO # 0.7 103/ul Normal 0.3-0.8 [facility] Comment on above: Performed By: #### M G, BMP, PHOS #### [facility] [address] [place] [address] Dr. David Magana Monocytes/100 WBC (Bld) 5.7 % Normal 1.7-12.0 [facility] Comment on above: Performed By: #### M G, BMP, PHOS #### [facility] [address] [address] [address] David Magana NEUT # 10.4 103/ul Critically high 1.4-6.5 [facility] Comment on above: Performed By: #### ERICK Jacques, PHOS #### [facility] [address] [address] [address] David Magana Neutrophils/100 WBC (Bld) 88.8 % Critically high 43.0-75.0 [facility] Comment on above: Performed By: #### ERICK Jacques, PHOS #### [facility] [address] [address] [address] David Magana Platelet mean volume (Bld) [Entitic vol] 11.0 fL Normal 9.5-13.5 [facility] Comment on above: Performed By: #### ERICK Jacques, PHOS #### [facility] [address] [place] [address] Dr. David Magana PLT 198 103/ul Normal 150-450 [facility] Comment on above: Performed By: #### ERICK Jacques, PHOS #### [facility] [address] [address] [address] David Magana RBC 4.43 106/ul Critically low 4.70-6.10 [facility] Comment on above: Performed By: #### ERICK Jacques, PHOS #### [facility] [address] [place] [address] Dr. David Magana WBC 11.8 103/ul Critically high 4.0-11.0 [facility] Comment on above: Performed By: #### REICK Jacques, PHOS #### [facility] [address] [place] [address] HEAD WO CONon [...] FRANCISCO ZELAYA Date: 2022-07-18 05:12 Normal [facility] Covid-19 PCR (CVDTBH)on SARS-CoV-2 (COVID-19) RNA SULTANA+probe Ql (Unsp spec) Detected Critically abnormal NOT DETECTED [facility] Comment on above: Result Comment: This test is not yet approved or cleared by the [place] FDA. When there are no FDA-approved or cleared tests available, and other criteria are met, FDA can make tests available under an emergency access mechanism called an Emergency Use Authorization (EUA). The EUA for this test is supported by the Ironing Worker of Health and Human Service's declaration that [...] used). Performed By: #### C VDTB #### [facility] [address] [address] [address] David Magana D-DIMERon 07-18-2022 D-DIMER 1.69 mg/L FEU Critically high <=0.59 [facility] Comment on above: Performed By: #### C BC #### [facility] [address] [place], [place] [address] Dr. David Magana D-DIMER COMMENTS SEE BELOW Normal [facility] Comment on above: Result Comment: Incr [...] hospitalization. Performed By: #### C BC #### [facility] [address] [place] [address] Dr. David Magana POINT OF CARE GLUCOSEon Glucose [Mass/Vol] 329 mg/dL Critically high 74-106 [facility] Comment on above: Performed By: #### P OCGLUC #### [facility] [address] [place] [address] Dr. David Magana Glucose [Mass/Vol] 354 mg/dL Critically high 74-106 [facility] Comment on above: Performed By: #### P OCGLUC #### [facility] [address] [place] [address] Dr. David Magana PROF 14(COMP METB)on 022 Albumin [Mass/Vol] 3.6 g/dL Normal 3.4-5.0 [facility] Comment on above: Performed By: #### C VDTBH #### [facility] [address] [place] [address] Dr. David Magana Albumin/Globulin [Mass ratio] 1.1 {ratio} Normal [facility] Comment on above: Performed By: #### C VDTBH #### [facility] [address] [place] [address] Dr. David Magana ALP [Catalytic activity/Vol] 67 U/L Normal 46-116 [facility] Comment on above: Performed By: #### C VDTBH #### [facility] [address] [place] [address] Dr. David Magana ALT [Catalytic activity/Vol] 33 U/L Normal 16-63 [facility] Comment on above: Performed By: #### C VDTBH #### [facility] [address] [place] [address] Dr. David Magana Anion gap [Moles/Vol] 23.5 mmol/L Normal [facility] Comment on above: Performed By: #### C VDTBH #### [facility] [address] [place] [address] Dr. David Magana AST [Catalytic activity/Vol] 13 U/L Critically low 15-37 [facility] Comment on above: Performed By: #### C VDTBH #### [facility] [address] [address] [address] David Magana Bilirubin [Mass/Vol] 0.6 mg/dL Normal 0.2-1.0 [facility] Comment on above: Performed By: #### C VDTBH #### [facility] [address] [place] [address] Dr. David Magana Calcium [Mass/Vol] 8.4 mg/dL Critically low 8.5-10.1 [facility] Comment on above: Performed By: #### C VDTBH #### [facility] [address] [place] [address] Dr. David Magana Chloride [Moles/Vol] 93 mmol/L Critically low 98-107 [facility] Comment on above: Performed By: #### C VDTBH #### [facility] [address] [place] [address] Dr. David Magana CO2 [Moles/Vol] 17.9 mmol/L Critically low 21.0-32.0 [facility] Comment on above: Performed By: #### C VDTBH #### [facility] [address] [place] [address] Dr. David Magana Creatinine [Mass/Vol] 2.15 mg/dL Critically high 0.70-1.30 [facility] Comment on above: Performed By: #### C VDTBH #### [facility] [address] [place] [address] Dr. David Magana EGFR-AF UGANDAN 36 mL/min/1.73m2 Critically low >=60 [facility] Comment on above: Performed By: #### C VDTBH #### [facility] [address] [place] [address] Dr. David Magana EGFR-NON AF UGANDAN 30 mL/min/1.73m2 Critically low >=60 [facility] Comment on above: Performed By: #### C VDTBH #### [facility] [address] [place] [address] Dr. David Magana Globulin (S) [Mass/Vol] 3.2 g/dL Normal [facility] Comment on above: Performed By: #### C VDTBH #### [facility] [address] [place] [address] Dr. David Magana Glucose [Mass/Vol] 345 mg/dL Critically high 74-106 [facility] Comment on above: Performed By: #### C VDTBH #### [facility] [address] [place] [address] Dr. David Magana Potassium [Moles/Vol] 5.4 mmol/L Critically high 3.5-5.1 [facility] Comment on above: Performed By: #### C VDTBH #### [facility] [address] [place] [address] Dr. David Magana Performed By: #### K #### [facility] [address] [place] [address] Dr. David Magana Protein [Mass/Vol] 6.8 g/dL Normal 6.4-8.2 [facility] Comment on above: Performed By: #### C VDTBH #### [facility] [address] [place] [address] Dr. David Magana Sodium [Moles/Vol] 129 mmol/L Critically low 136-145 [facility] Comment on above: Performed By: #### C VDTBH #### [facility] [address] [place] [address] Dr. David Magana Urea nitrogen [Mass/Vol] 65.0 mg/dL Critically high 7.0-18.0 [facility] Comment on above: Performed By: #### C VDTBH #### [facility] [address] [place] [address] Dr. David Magana Urea nitrogen/Creatinine [Mass ratio] 30.2 mg/mg Normal [facility] Comment on above: Performed By: #### C VDTBH #### [facility] [address] [place] [address] Dr. David Magana UA RANDOM W/MICROSCOPICon 09 -03-2022 BACTERIA NONE SEEN Normal NONE SEEN [facility] Comment on above: Performed By: #### M G, BMP, PHOS #### [facility] [address] [place] [address] Dr. David Magana Bilirubin Ql (U) Negative Normal NEGATIVE [facility] Comment on above: Performed By: #### M G, BMP, PHOS #### [facility] [address] [address] [address] David Magana CAST NONE SEEN Normal NONE SEEN [facility] Comment on above: Performed By: #### M G, BMP, PHOS #### [facility] [address] [place] [address] Dr. David Magana Clarity (U) CLEAR Normal CLEAR [facility] Comment on above: Performed By: #### M G, BMP, PHOS #### [facility] [address] [place] [address] Dr. David Magana Color (U) LT. YELLOW Normal YELLOW [facility] Comment on above: Performed By: #### M G, BMP, PHOS #### [facility] [address] [place] [address] Dr. David Magana Crystals LM Nom (Urine sed) NONE SEEN Normal NONE SEEN [facility] Comment on above: Performed By: #### M G, BMP, PHOS #### [facility] [address] [place] [address] Dr. David Magana Epithelial cells LM Ql (Urine sed) RARE Normal NONE SEEN /RARE [facility] Comment on above: Performed By: #### M G, BMP, PHOS #### [facility] [address] [place] [address] Dr. David Magana Glucose Ql (U) 1000 mg/dl Abnormal NEGATIVE [facility] Comment on above: Performed By: #### M G, BMP, PHOS #### [facility] [address] [place] [address] Dr. David Magana Hemoglobin Ql (U) Negative Normal NEGATIVE [facility] Comment on above: Performed By: #### M G, BMP, PHOS #### [facility] [address] [address] [address] David Magana Ketones Ql (U) 15 mg/dl Abnormal NEGATIVE [facility] Comment on above: Performed By: #### M G, BMP, PHOS #### [facility] [address] [address] [address] David Magana LEUKOCYTES Negative Normal NEGATIVE [facility] Comment on above: Performed By: #### M G, BMP, PHOS #### [facility] [address] [place] [address] Dr. David Magana MUCOUS NONE SEEN Normal NONE SEEN [facility] Comment on above: Performed By: #### M G, BMP, PHOS #### [facility] [address] [place] [address] Dr. David Magana Nitrite Ql (U) Negative Normal NEGATIVE [facility] Comment on above: Performed By: #### M G, BMP, PHOS #### [facility] [address] [place] [address] Dr. David Magana pH (U) 5.5 [pH] Normal 5-9 [facility] Comment on above: Performed By: #### M G, BMP, PHOS #### [facility] [address] [place] [address] Dr. David Magana RBC NONE SEEN Abnormal 0-2 [facility] Comment on above: Performed By: #### M G, BMP, PHOS #### [facility] [address] [place] [address] Dr. David Magana SPEC GRAVITY <=1.005 Abnormal 1.005-<=1.025 [facility] Comment on above: Performed By: #### M G, BMP, PHOS #### [facility] [address] [place] [address] Dr. David Magana UA PROTEIN Negative Normal NEGATIVE/ TRACE [facility] Comment on above: Performed By: #### M G, BMP, PHOS #### [facility] [address] [place] [address] Dr. David Magana Urobilinogen Qn (U) 0.2 {Dionna'U}/dL Normal 0.2 - 1. 0 [facility] Comment on above: Performed By: #### M ERICK Faith PHOS #### [facility] [address] [place] [address] Dr. David Magana WBC NONE SEEN Normal NONE SEEN [facility] Comment on above: Performed By: #### M ERICK Faith, PHOS #### [facility] [address] [place] [address] Dr. David Magana XR CHEST 1 Von [...] Yefri DWYER Date: 2022-07-18 00:09 Normal [facility] CARDIAC BARRIE ADMITon 022 CK [Catalytic activity/Vol] 61 U/L Normal 39-308 [facility] Comment on above: Performed By: #### C BC #### [facility] [address] [place] [address] Dr. David Magana CK.MB [Mass/Vol] 1.84 ng/mL Normal <=3.60 [facility] Comment on above: Performed By: #### C BC #### [facility] [address] [place] [address] Dr. David Magana HSTROP 9.4 pg/mL Normal 4.0-76.1 [facility] Comment on above: Result Comment: CUT- OFF POINTS HAVE BEEN ESTABLISHED BASED ON THE FOURTH UNIVERSAL DEFINITIONS OF MYOCARDIAL INFARCTION. THE UPPER REFERENCE LIMIT (URL) OF TROPONIN, DEFINED THE 99TH PERCENTILE OF cTnI DISTRIBUTION IN A REFERENCE POPULATION, HAS BEEN CONFIRMED THE DECISION THRESHOLD FOR NM DIAGNOSIS. Performed By: #### C BC #### [facility] [address] [place] [address] Dr. David Magana DUSTIN 533 ng/mL Critically high 16-96 [facility] Comment on above: Performed By: #### C BC #### [facility] [address] [place] [address] Dr. David Magana CBC AUTO DIFFon 07-17-2022 BASO # 0.0 103/ul Normal 0.0-0.1 [facility] Comment on above: Performed By: #### M ERICK Faith, PHOS #### [facility] [address] [place] [address] Dr. David Magana Basophils/100 WBC (Bld) 0.2 % Normal 0.2-2.0 [facility] Comment on above: Performed By: #### M ERICK Faith, PHOS #### [facility] [address] [place] [address] Dr. David Magana EO # 0.0 103/ul Normal 0.0-0.7 [facility] Comment on above: Performed By: #### ERICK Jacques, PHOS #### [facility] [address] [place] [address] Dr. David Magana Eosinophils/100 WBC (Bld) 0.1 % Critically low 0.9-7.0 [facility] Comment on above: Performed By: #### ERICK Jacques, PHOS #### [facility] [address] [place] [address] Dr. aDvid Magana Erythrocyte distribution width (RBC) [Ratio] 13.2 % Normal 11.0-15.0 [facility] Comment on above: Performed By: #### ERICK Jacques, PHOS #### [facility] [address] [place] [address] Dr. David Magana Hematocrit (Bld) [Volume fraction] 43.1 % Normal 42.0-54.0 [facility] Comment on above: Performed By: #### M ERICK Faith, PHOS #### [facility] [address] [place] [address] Dr. David Magana Hemoglobin (Bld) [Mass/Vol] 14.5 g/dL Normal 14.0-18.0 [facility] Comment on above: Performed By: #### M ERICK Faith, PHOS #### [facility] [address] [address] [address] David Magana IG # 0.14 10e3/ul Critically high 0.00-0.03 [facility] Comment on above: Performed By: #### M G, BMP, PHOS #### [facility] [address] [place] [address] Dr. David Magana IG % 1.2 % Critically high 0.0-0.5 [facility] Comment on above: Performed By: #### M G, BMP, PHOS #### [facility] [address] [place] [address] Dr. David Magana LYMPH # 0.4 103/ul Critically low 1.2-3.8 [facility] Comment on above: Performed By: #### M G, BMP, PHOS #### [facility] [address] [place] [address] Dr. David Magana Lymphocytes/100 WBC (Bld) 3.4 % Critically low 20.5-60.0 [facility] Comment on above: Performed By: #### M G, BMP, PHOS #### [facility] [address] [place] [address] Dr. David Magana MANUAL DIFF REQ NO Normal [facility] Comment on above: Performed By: #### M G, BMP, PHOS #### [facility] [address] [place] [address] Dr. David Magana MCH (RBC) [Entitic mass] 33.3 pg Normal 25.9-34.0 [facility] Comment on above: Performed By: #### M G, BMP, PHOS #### [facility] [address] [place] [address] Dr. David Magana MCHC (RBC) [Mass/Vol] 33.6 g/dL Normal 29.9-35.2 [facility] Comment on above: Performed By: #### M G, BMP, PHOS #### [facility] [address] [place] [address] Dr. David Magana MCV (RBC) [Entitic vol] 98.9 fL Critically high 80.0-94.0 [facility] Comment on above: Performed By: #### ERICK Jacques, PHOS #### [facility] [address] [place] [address] Dr. David Magana MONO # 1.1 103/ul Critically high 0.3-0.8 [facility] Comment on above: Performed By: #### ERICK Jacques, PHOS #### [facility] [address] [place] [address] Dr. David Magana Monocytes/100 WBC (Bld) 8.9 % Normal 1.7-12.0 [facility] Comment on above: Performed By: #### ERICK Jacques, PHOS #### [facility] [address] [place] [address] Dr. David Magana NEUT # 10.3 103/ul Critically high 1.4-6.5 [facility] Comment on above: Performed By: #### ERICK Jacques, PHOS #### [facility] [address] [place] [address] Dr. David Magana Neutrophils/100 WBC (Bld) 86.2 % Critically high 43.0-75.0 [facility] Comment on above: Performed By: #### ERICK Jacques, PHOS #### [facility] [address] [place] [address] Dr. David Magana Platelet mean volume (Bld) [Entitic vol] 11.1 fL Normal 9.5-13.5 [facility] Comment on above: Performed By: #### ERICK Jacques, PHOS #### [facility] [address] [place] [address] Dr. David Magana PLT 229 103/ul Normal 150-450 [facility] Comment on above: Performed By: #### ERICK Jacques, PHOS #### [facility] [address] [place] [address] Dr. David Magana RBC 4.36 106/ul Critically low 4.70-6.10 [facility] Comment on above: Performed By: #### ERICK Jacques, PHOS #### [facility] [address] [address] [address] David Magana WBC 11.9 103/ul Critically high 4.0-11.0 [facility] Comment on above: Performed By: #### M ERICK Faith, PHOS #### [facility] [address] [address] [address] David Magana PROF CHEM 8 (BAS METB)on Anion gap [Moles/Vol] 26.5 mmol/L Normal [facility] Comment on above: Performed By: #### C BC #### [facility] [address] [address] [address] David Magana Calcium [Mass/Vol] 8.2 mg/dL Critically low 8.5-10.1 [facility] Comment on above: Performed By: #### C BC #### [facility] [address] [address] [address] David Magana Chloride [Moles/Vol] 89 mmol/L Critically low 98-107 [facility] Comment on above: Performed By: #### C BC #### [facility] [address] [address] [address] David Magana CO2 [Moles/Vol] 14.5 mmol/L Critically low 21.0-32.0 [facility] Comment on above: Performed By: #### C BC #### [facility] [address] [address] [address] David Magana Creatinine [Mass/Vol] 2.78 mg/dL Critically high 0.70-1.30 [facility] Comment on above: Performed By: #### C BC #### [facility] [address] [address] [address] David Magana EGFR-AF UGANDAN 27 mL/min/1.73m2 Critically low >=60 [facility] Comment on above: Performed By: #### C BC #### [facility] [address] [address] [address] David Magana EGFR-NON AF UGANDAN 22 mL/min/1.73m2 Critically low >=60 [facility] Comment on above: Performed By: #### C BC #### [facility] [address] [address] [address] David Magana Glucose [Mass/Vol] 442 mg/dL Critically high 74-106 [facility] Comment on above: Performed By: #### C BC #### [facility] [address] [id number] David Magana Potassium [Moles/Vol] 6.0 mmol/L Critically high 3.5-5.1 [facility] Comment on above: Performed By: #### C BC #### [facility] [address] [address] [address] David Magana Sodium [Moles/Vol] 124 mmol/L Critically low 136-145 [facility] Comment on above: Performed By: #### C BC #### [facility] [address] [address] [address] David Magaan Urea nitrogen [Mass/Vol] 73.0 mg/dL Critically high 7.0-18.0 [facility] Comment on above: Performed By: #### C BC #### [facility] [address] [address] [address] David Magana Urea nitrogen/Creatinine [Mass ratio] 26.3 mg/mg Normal [facility] Comment on above: Performed By: #### C BC #### [facility] [address] [address] [address] David Magana Covid-19 PCR ([facility])on 06-16 SARS-CoV-2 (COVID-19) RNA SULTANA+probe Ql (Unsp spec) Detected Critically abnormal NOT DETECTED [facility] Comment on above: Result Comment: This test is not yet approved or cleared by the [place] FDA. When there are no FDA-approved or cleared tests available, and other criteria are met, FDA can make tests available under an emergency access mechanism called an Emergency Use Authorization (EUA). The EUA for this test is supported by the [place] of Health and Human Service's (HHS's) declaration [...] longer be used). Performed By: #### M Marcell, ERICK, JOSUE #### [facility] [address] [address] [address] David Magana ECHOCARDIO M/2D COMPLETEon 0 07-01-2022 ECHOCARDIO M/2D COMPLETE Patient: NADIR HEREDIA Exam Date: 07/01/2022 : 1940 Gender:M Ordering : DR CLARIBEL PUGA M.D. Admission #: [id number] Family : DR VAN SUNG . Order #: [id number] CLICK HERE TO VIEW EXAM ECHOCARDIOGRAM REPORT [...] M.D. on 07/01/2022 at 16:27 Normal [facility] Covid-19 PCR ([facility])on SARS-CoV-2 (COVID-19) RNA SULTANA+probe Ql (Unsp spec) Not detected Normal NOT DETECTED [facility] Comment on above: Result Comment: When [...] for this test is supported by the [place] of Health and Human Service's declaration that [...] used). Performed By: #### C VDTBH #### [facility] [address] [place] [address] Dr. David Magana CREATININE URINEon URINE CREAT 14.70 mg/dL Critically low 20.00-300.00 [facility] Comment on above: Performed By: #### M ERICK Faith PHOS #### [facility] [address] [place] [address] Dr. David Magana GLYCOHEMOGLOBIN A1Con 2021 ADA RECOMMENDATION SEE BELOW Normal [facility] Comment on above: Result Comment: ADA RECOMMENDED LIMIT 4.0 - 6.0 ADA THERAPEUTIC TARGET < 7.0 ACTION SUGGESTED > 7.0 Performed By: #### A 1C #### [facility] [address] [place] [address] Dr. David Magana Glucose [Mass/Vol] 209 mg/dL Normal [facility] Comment on above: Performed By: #### A 1C #### [facility] [address] [place] [address] Dr. David Magana HbA1c (Bld) [Mass fraction] 8.9 % Critically high 4.5-6.2 [facility] Comment on above: Performed By: #### A 1C #### [facility] [address] [place] [address] Dr. David Magana MAGNESIUMon 06-08-2022 Magnesium [Mass/Vol] 2.3 mg/dL Normal 1.8-2.4 [facility] Comment on above: Performed By: #### M G, BMP, PHOS #### [facility] [address] [place] [address] Dr. David Magana PHOSPHORUSon 06-08-2022 Phosphate [Mass/Vol] 3.5 mg/dL Normal 2.6-4.7 [facility] Comment on above: Performed By: #### M G, BMP, PHOS #### [facility] [address] [place] [address] Dr. David Magana PROF CHEM 8 (BAS METB)on Anion gap [Moles/Vol] 10.6 mmol/L Normal [facility] Comment on above: Performed By: #### M G, BMP, PHOS #### [facility] [address] [place] [address] Dr. David Magana Calcium [Mass/Vol] 9.2 mg/dL Normal 8.5-10.1 [facility] Comment on above: Performed By: #### M G, BMP, PHOS #### [facility] [address] [place] [address] Dr. David Magana Chloride [Moles/Vol] 102 mmol/L Normal 98-107 [facility] Comment on above: Performed By: #### M G, BMP, PHOS #### [facility] [address] [place] [address] Dr. David Magana CO2 [Moles/Vol] 30.1 mmol/L Normal 21.0-32.0 [facility] Comment on above: Performed By: #### M G, BMP, PHOS #### [facility] [address] [place] [address] Dr. David Magana Creatinine [Mass/Vol] 1.70 mg/dL Critically high 0.70-1.30 [facility] Comment on above: Performed By: #### M G, BMP, PHOS #### [facility] [address] [address] [address] David Magaan EGFR-AF UGANDAN 47 mL/min/1.73m2 Critically low >=60 [facility] Comment on above: Performed By: #### M G, BMP, PHOS #### [facility] [address] [address] [address] David Magana EGFR-NON AF UGANDAN 39 mL/min/1.73m2 Critically low >=60 [facility] Comment on above: Performed By: #### M G, BMP, PHOS #### [facility] [address] [place] [address] Dr. David Magana Glucose [Mass/Vol] 197 mg/dL Critically high 74-106 [facility] Comment on above: Performed By: #### M G, BMP, PHOS #### [facility] [address] [place] [address] Dr. David Magana Potassium [Moles/Vol] 4.7 mmol/L Normal 3.5-5.1 [facility] Comment on above: Performed By: #### M G, BMP, PHOS #### [facility] [address] [place] [address] Dr. David Magana Sodium [Moles/Vol] 138 mmol/L Normal 136-145 [facility] Comment on above: Performed By: #### M G, BMP, PHOS #### [facility] [address] [place] [address] Dr. David Magana Urea nitrogen [Mass/Vol] 25.0 mg/dL Critically high 7.0-18.0 [facility] Comment on above: Performed By: #### M G, BMP, PHOS #### [facility] [address] [place] [address] Dr. David Magana Urea nitrogen/Creatinine [Mass ratio] 14.7 mg/mg Normal [facility] Comment on above: Performed By: #### M G, BMP, PHOS #### [facility] [address] [place] [address] Dr. David Magana PROTEIN RAND URINEon 022 UR PROT <5.0 Normal <=11.9 [facility] Comment on above: Performed By: #### C REAU, PROTU #### [facility] [address] [place] [address] Dr. David Magana BILIRUBIN CONJUGATED (DIRECT )on 04-28-2022 BILI, CONJUGATED 0.1 mg/dL Normal 0.0-0.2 [facility] Comment on above: Performed By: #### P OCGLUC #### [facility] [address] [place] [address] Dr. David Magana CBC AUTO DIFFon 04-28-2022 BASO # 0.1 103/ul Normal 0.0-0.1 [facility] Comment on above: Performed By: #### C VDTBH #### [facility] [address] [place] [address] Dr. David Magana Basophils/100 WBC (Bld) 0.7 % Normal 0.2-2.0 [facility] Comment on above: Performed By: #### C VDTBH #### [facility] [address] [place] [address] Dr. David Magana EO # 0.5 103/ul Normal 0.0-0.7 [facility] Comment on above: Performed By: #### C VDTBH #### [facility] [address] [place] [address] Dr. David Magana Eosinophils/100 WBC (Bld) 6.7 % Normal 0.9-7.0 [facility] Comment on above: Performed By: #### C VDTBH #### [facility] [address] [place] [address] Dr. David Magana Erythrocyte distribution width (RBC) [Ratio] 13.6 % Normal 11.0-15.0 [facility] Comment on above: Performed By: #### C VDTBH #### [facility] [address] [place] [address] Dr. David Magana Hematocrit (Bld) [Volume fraction] 45.9 % Normal 42.0-54.0 [facility] Comment on above: Performed By: #### C VDTBH #### [facility] [address] [place] [address] Dr. aDvid Magana Hemoglobin (Bld) [Mass/Vol] 14.9 g/dL Normal 14.0-18.0 [facility] Comment on above: Performed By: #### C VDTBH #### [facility] [address] [place] [address] Dr. David Magana IG # 0.03 10e3/ul Normal 0.00-0.03 [facility] Comment on above: Performed By: #### C VDTBH #### [facility] [address] [place] [address] Dr. David Magana IG % 0.4 % Normal 0.0-0.5 [facility] Comment on above: Performed By: #### C VDTBH #### [facility] [address] [place] [address] Dr. David Magana LYMPH # 1.0 103/ul Critically low 1.2-3.8 [facility] Comment on above: Performed By: #### C VDTBH #### [facility] [address] [place] [address] Dr. David Magana Lymphocytes/100 WBC (Bld) 13.4 % Critically low 20.5-60.0 [facility] Comment on above: Performed By: #### C VDTBH #### [facility] [address] [place] [address] Dr. David Magana MANUAL DIFF REQ NO Normal [facility] Comment on above: Performed By: #### C VDTBH #### [facility] [address] [place] [address] Dr. David Magana MCH (RBC) [Entitic mass] 33.8 pg Normal 25.9-34.0 [facility] Comment on above: Performed By: #### C VDTBH #### [facility] [address] [place] [address] Dr. David Magana MCHC (RBC) [Mass/Vol] 32.5 g/dL Normal 29.9-35.2 [facility] Comment on above: Performed By: #### C VDTBH #### [facility] [address] [place] [address] Dr. David Mgaana MCV (RBC) [Entitic vol] 104.1 fL Critically high 80.0-94.0 [facility] Comment on above: Performed By: #### C VDTBH #### [facility] [address] [place] [address] Dr. David Magana MONO # 0.8 103/ul Normal 0.3-0.8 [facility] Comment on above: Performed By: #### C VDTBH #### [facility] [address] [place] [address] Dr. David Magana Monocytes/100 WBC (Bld) 10.2 % Normal 1.7-12.0 [facility] Comment on above: Performed By: #### C VDTBH #### [facility] [address] [place] [address] Dr. David Magana NEUT # 5.1 103/ul Normal 1.4-6.5 [facility] Comment on above: Performed By: #### C VDTBH #### [facility] [address] [place] [address] Dr. David Magana Neutrophils/100 WBC (Bld) 68.6 % Normal 43.0-75.0 [facility] Comment on above: Performed By: #### C VDTBH #### [facility] [address] [place] [address] Dr. David Magana Platelet mean volume (Bld) [Entitic vol] 11.3 fL Normal 9.5-13.5 [facility] Comment on above: Performed By: #### C VDTBH #### [facility] [address] [place] [address] Dr. David Magana PLT 185 103/ul Normal 150-450 [facility] Comment on above: Performed By: #### C VDTBH #### [facility] [address] [place] [address] Dr. David Magana RBC 4.41 106/ul Critically low 4.70-6.10 [facility] Comment on above: Performed By: #### C VDTBH #### [facility] [address] [address] [address] David Magana WBC 7.5 103/ul Normal 4.0-11.0 [facility] Comment on above: Performed By: #### C VDTBH #### [facility] [address] [place] [address] Dr. David Magana FREE T3on 04-28-2022 FREE T3 2.17 pg/mlL Critically low 2.18-3.98 [facility] Comment on above: Performed By: #### P OCGLUC #### [facility] [address] [place] [address] Dr. David Magana LIPID PROFILEon 04-28-2022 CHOL-HDL RATIO NORM SEE BELOW Normal [facility] Comment on above: Result Comment: 3.3 - 4.4 LOW RISK 4.4 - 7.1 AVERAGE RISK 7.1 - 11.0 MODERATE RISK >11.0 HIGH RISK Performed By: #### P OCGLUC #### [facility] [address] [place] [address] Dr. David Magana Cholesterol [Mass/Vol] 234 mg/dL Critically high <=200 [facility] Comment on above: Performed By: #### P OCGLUC #### [facility] [address] [place] [address] Dr. David Magana Cholesterol in HDL [Mass/Vol] 58 mg/dL Normal 40-60 [facility] Comment on above: Performed By: #### P OCGLUC #### [facility] [address] [place] [address] Dr. David Magana Cholesterol in LDL [Mass/Vol] 129.0 mg/dL Normal [facility] Comment on above: Performed By: #### P OCGLUC #### [facility] [address] [place] [address] Dr. David Magana Cholesterol.total/Cho lesterol in HDL [Mass ratio] 4.0 {ratio} Normal [facility] Comment on above: Performed By: #### P OCGLUC #### [facility] [address] [address] [address] David Magana HDL NORMAL > or = 60 mg/dl - LOW CARDIOVASCULAR RISK <40 mg/dl - HIGH CARDIOVASCULAR RISK Normal [facility] Comment on above: Performed By: #### P OCGLUC #### [facility] [address] [address] [address] David Magana LDL CALC NORMAL SEE BELOW Normal [facility] Comment on above: Result Comment: <100 mg/dl OPTIMAL 100 - 129 mg/dl NEAR OR ABOVE OPTIMAL 130 - 159 mg/dl BORDERLINE HIGH 160 - 189 mg/dl HIGH >190 mg/dl VERY HIGH Performed By: #### P OCGLUC #### [facility] [address] [address] [address] David Magana Triglyceride [Mass/Vol] 235 mg/dL Critically high <=150 [facility] Comment on above: Performed By: #### P OCGLUC #### [facility] [address] [address] [address] David Magana VLDL CALC 47.0 mg/dL Normal [facility] Comment on above: Performed By: #### P OCGLUC #### [facility] [address] [place] [address] Dr. David Magana PROF 14(COMP METB)on 022 Albumin [Mass/Vol] 3.2 g/dL Critically low 3.4-5.0 [facility] Comment on above: Performed By: #### P OCGLUC #### [facility] [address] [address] [address] David Magana Albumin/Globulin [Mass ratio] 0.9 {ratio} Normal [facility] Comment on above: Performed By: #### P OCGLUC #### [facility] [address] [place] [address] Dr. David Magana ALP [Catalytic activity/Vol] 77 U/L Normal 46-116 [facility] Comment on above: Performed By: #### P OCGLUC #### [facility] [address] [place] [address] Dr. David Magana ALT [Catalytic activity/Vol] 24 U/L Normal 16-63 [facility] Comment on above: Performed By: #### P OCGLUC #### [facility] [address] [address] [address] David Magana Anion gap [Moles/Vol] 13.1 mmol/L Normal Th [facility] Comment on above: Performed By: #### P OCGLUC #### [facility] [address] [address] [address] David Magana AST [Catalytic activity/Vol] 13 U/L Critically low 15-37 [facility] Comment on above: Performed By: #### P OCGLUC #### [facility] [address] [address] [address] David Magana Bilirubin [Mass/Vol] 0.3 mg/dL Normal 0.2-1.0 [facility] Comment on above: Performed By: #### P OCGLUC #### [facility] [address] [address] [address] David Magana Calcium [Mass/Vol] 8.8 mg/dL Normal 8.5-10.1 [facility] Comment on above: Performed By: #### P OCGLUC #### [facility] [address] [place] [address] Dr. David Magana Chloride [Moles/Vol] 106 mmol/L Normal 98-107 [facility] Comment on above: Performed By: #### P OCGLUC #### [facility] [address] [address] [address] David Magana CO2 [Moles/Vol] 27.5 mmol/L Normal 21.0-32.0 [facility] Comment on above: Performed By: #### P OCGLUC #### [facility] [address] [address] [address] David Magana Creatinine [Mass/Vol] 1.62 mg/dL Critically high 0.70-1.30 [facility] Comment on above: Performed By: #### P OCGLUC #### [facility] [address] [address] [address] David Magana EGFR-AF UGANDAN 50 mL/min/1.73m2 Critically low >=60 [facility] Comment on above: Performed By: #### P OCGLUC #### [facility] [address] [address] [address] David Magana EGFR-NON AF UGANDAN 41 mL/min/1.73m2 Critically low >=60 [facility] Comment on above: Performed By: #### P OCGLUC #### [facility] [address] [address] [address] David Magana Globulin (S) [Mass/Vol] 3.4 g/dL Normal [facility] Comment on above: Performed By: #### P OCGLUC #### [facility] [address] [address] [address] David Magana Glucose [Mass/Vol] 206 mg/dL Critically high 74-106 [facility] Comment on above: Performed By: #### P OCGLUC #### [facility] [address] [address] [address] David Magana Potassium [Moles/Vol] 4.6 mmol/L Normal 3.5-5.1 [facility] Comment on above: Performed By: #### P OCGLUC #### [facility] [address] [address] [address] David Magana Protein [Mass/Vol] 6.6 g/dL Normal 6.4-8.2 [facility] Comment on above: Performed By: #### P OCGLUC #### [facility] [address] [address] [address] David Magana Sodium [Moles/Vol] 142 mmol/L Normal 136-145 [facility] Comment on above: Performed By: #### P OCGLUC #### [facility] [address] [address] [address] David Magana Urea nitrogen [Mass/Vol] 26.0 mg/dL Critically high 7.0-18.0 [facility] Comment on above: Performed By: #### P OCGLUC #### [facility] [address] [address] [address] David Magana Urea nitrogen/Creatinine [Mass ratio] 16.0 mg/mg Normal [facility] Comment on above: Performed By: #### P OCGLUC #### [facility] [address] [place] [address] Dr. David Magana T4on 04-28-2022 T4 [Mass/Vol] 7.70 ug/dL Normal 4.50-12.10 [facility] Comment on above: Performed By: #### P OCGLUC #### [facility] [address] [place] [address] Dr. David Magana TSHon 04-28-2022 TSH 2.187 uIU/mL Normal 0.358-3.740 [facility] Comment on above: Performed By: #### P OCGLUC #### [facility] [address] [place] [address] Dr. David Magana TSH RANGE SEE BELOW Normal [facility] Comment on above: Result Comment: <0.3 4 UIU/ml HYPERTHYROID 0.34-5.60 UIU/ml EUTHYROID >5.60 UIU/ml HYPOTHYROID Performed By: #### P OCGLUC #### [facility] [address] [place] [address] Dr. David Magana Vital Signs Date Time Vital Sign Value Performing Clinician Facility 08-08-2024 10:25-0400 Blood Pressure Location MARQUIS CAMPBELL [facility] 08-08-2024 10:25-0400 Diastolic blood pressure 82 mm[Hg] MARQUIS CAMPBELL [facility] 08-08-2024 10:25-0400 Systolic blood pressure 140 mm[Hg] MARQUIS CAMPBELL [facility] 10-14-2023 14:33-0500 Diastolic blood pressure 70 mm[Hg] Nereyda Gomez [facility] 10-14-2023 14:33-0500 Mean blood pressure 93 mm[Hg] Nereyda Patricia [facility] 10-14-2023 14:33-0500 Systolic blood pressure 138 mm[Hg] Nereyda Patricia [facility] 10-14-2023 14:18-0500 Blood Pressure Location Nereyda Patricia [facility] 10-14-2023 14:18-0500 Body temperature 97.88 [degF] Nereyda Patricia [facility] 10-14-2023 14:18-0500 Diastolic blood pressure 73 mm[Hg] Nereyda Patricia [facility] 10-14-2023 14:18-0500 Heart rate 91 /min Nereyda Patricia [facility] 10-14-2023 14:18-0500 Systolic blood pressure 143 mm[Hg] Nereyda Patricia [facility] 10-01-2023 12:13-0500 Diastolic blood pressure 66 mm[Hg] Nereyda Patricia [facility] 10-01-2023 12:13-0500 Mean blood pressure 104 mm[Hg] Nereyda Patricia [facility] 10-01-2023 12:13-0500 Systolic blood pressure 179 mm[Hg] Nereyda Patricia [facility] 10-01-2023 12:10-0500 Blood Pressure Location Nereyda Patricia [facility] 10-01-2023 12:10-0500 Body temperature 98.42 [degF] Nereyda Patricia [facility] 10-01-2023 12:10-0500 Diastolic blood pressure 77 mm[Hg] Nereyda Patricia [facility] 10-01-2023 12:10-0500 Heart rate 81 /min Nereyda Patricia [facility] 10-01-2023 12:10-0500 Respiratory rate 14 /min Nereyda Patricia [facility] 10-01-2023 12:10-0500 Systolic blood pressure 168 mm[Hg] Nereyda Patricia [facility] 06-10-2023 10:43-0400 Diastolic blood pressure 64 mm[Hg] Nereyda Patricia [facility] 06-10-2023 10:43-0400 Heart rate 76 /min Nereyda Patricia [facility] 06-10-2023 10:43-0400 Respiratory rate 16 /min Nereyda Patricia [facility] 06-10-2023 10:43-0400 SaO2% (BldA) [Mass fraction] 95 % Nereyda Patricia [facility] 06-10-2023 10:43-0400 Systolic blood pressure 121 mm[Hg] Nereyda Patricia [facility] 04-13-2023 14:19-0400 Diastolic blood pressure 70 mm[Hg] Nereyda Patricia [facility] 04-13-2023 14:19-0400 Mean blood pressure 95 mm[Hg] Nereyda Patricia [facility] 04-13-2023 14:19-0400 Systolic blood pressure 146 mm[Hg] Nereydabruce JoyaPatricia [facility] 04-13-2023 14:15-0400 Blood Pressure Location Nereydabruce JoyaPatricia [facility] 04-13-2023 14:15-0400 Body temperature 97.7 [degF] Nereydabruce JoyaPatricia [facility] 04-13-2023 14:15-0400 Diastolic blood pressure 87 mm[Hg] Nereydabruce JoyaPatricia [facility] 04-13-2023 14:15-0400 Heart rate 70 /min Nereyda Joyametz [facility] 04-13-2023 14:15-0400 Systolic blood pressure 150 mm[Hg] Nereydabruce JoyaPatricia [facility] 06-09-2022 10:02-0400 Body temperature 96.98 [degF] Nereyda Joyametz [facility] 06-09-2022 10:02-0400 Diastolic blood pressure 75 mm[Hg] Nereydabruce JoyaPatricia [facility] 06-09-2022 10:02-0400 Heart rate 72 /min Nereydabruce JoyaPatricia [facility] 06-09-2022 10:02-0400 SaO2% (BldA) [Mass fraction] 97 % Nereyda Patricia [facility] 06-09-2022 10:02-0400 Systolic blood pressure 139 mm[Hg] Nereyda Patricia [facility] 05-11-2022 11:30-0400 Diastolic blood pressure 102 mm[Hg] Bender SALAM [facility] 05-11-2022 11:30-0400 Heart rate 86 /min Bender SALAM [facility] 05-11-2022 11:30-0400 Respiratory rate 15 /min Bender SALAM [facility] 05-11-2022 11:30-0400 SaO2% (BldA) [Mass fraction] 95 % Bender SALAM [facility] 05-11-2022 11:30-0400 Systolic blood pressure 172 mm[Hg] Bender SALAM [facility] 05-11-2022 11:15-0400 Diastolic blood pressure 88 mm[Hg] Bender SALAM [facility] 05-11-2022 11:15-0400 Heart rate 86 /min Bender SALAM [facility] 05-11-2022 11:15-0400 Respiratory rate 18 /min Bender SALAM [facility] 05-11-2022 11:15-0400 SaO2% (BldA) [Mass fraction] 97 % Bender SALAM [facility] 05-11-2022 11:15-0400 Systolic blood pressure 170 mm[Hg] Bender SALAM [facility] 05-11-2022 11:10-0400 Diastolic blood pressure 108 mm[Hg] Bender SALAM [facility] 05-11-2022 11:10-0400 Heart rate 85 /min Bender SALAM [facility] 05-11-2022 11:10-0400 Respiratory rate 14 /min Bender SALAM [facility] 05-11-2022 11:10-0400 SaO2% (BldA) [Mass fraction] 97 % Bender SALAM [facility] 05-11-2022 11:10-0400 Systolic blood pressure 157 mm[Hg] Bender SALAM [facility] 05-11-2022 11:02-0400 Body temperature 97.34 [degF] Bender SALAM [facility] 05-11-2022 10:27-0400 Blood Pressure Location Bender SALAM [facility] 05-11-2022 10:23-0400 Blood Pressure Location Bender SALAM [facility] 05-11-2022 10:23-0400 Body temperature 98.24 [degF] Bender SALAM [facility] 03-31-2022 09:53-0400 Blood Pressure Location Nereydabruce JoyaPatricia [facility] 03-31-2022 09:53-0400 Body temperature 97.7 [degF] Nereyda Patricia [facility] 03-31-2022 09:53-0400 Diastolic blood pressure 72 mm[Hg] Nereyda Patricia [facility] 03-31-2022 09:53-0400 Heart rate 73 /min Nereyda Patricia [facility] 03-31-2022 09:53-0400 SaO2% (BldA) [Mass fraction] 96 % Nereyda Gomez [facility] 03-31-2022 09:53-0400 Systolic blood pressure 129 mm[Hg] Neryeda Gomez [facility] Encounters Encounter Date Encounter Type Care Provider Facility Start: 08-17-2024 ambulatory MARQUIS NKANSAH-AMANKRA Facility: [place] Start: 08-08-2024 End: 08-08-2024 ambulatory MARQUIS NKANSAH-AMANKRA Facility: [place] Start: 08-08-2024 End: 08-08-2024 Patient encounter procedure MARQUIS BLOUNT-AMANKRA [facility] Start: 08-03-2024 End: 08-03-2024 ambulatory ROBINSON A BROWN Not Available Start: 08-01-2024 End: 08-01-2024 ambulatory BARRIE BRASWELL Not Available Start: 07-20-2024 End: 07-20-2024 ambulatory ROBINSON A BROWN Not Available Start: 07-06-2024 End: 07-06-2024 ambulatory ROBINSON A BROWN Not Available Start: 07-05-2024 End: 07-05-2024 ambulatory JEFF [facility] Start: 06-07-2024 End: 06-07-2024 ambulatory RUTHIE [facility] Start: 06-05-2024 End: 06-05-2024 ambulatory [facility] Start: 06-01-2024 End: 06-01-2024 ambulatory ROBINSON A BROWN Not Available Start: 04-20-2024 End: 04-20-2024 ambulatory ROBINSON A BROWN Not Available Start: 03-03-2024 End: 03-03-2024 ambulatory [facility] Start: 02-10-2024 End: 02-10-2024 ambulatory ROBINSON Cara AVIVA Not Available Start: 02-02-2024 ambulatory Nereyda A Patricia Facili ty:[facility] Start: 01-11-2024 End: 01-11-2024 ambulatory BARRIE BRASWELL Not Available Start: 12-09-2023 ambulatory Nereyda A Patricia Facili ty:[facility] Start: 12-02-2023 End: 12-02-2023 ambulatory ROBINSON A AVIVA Not Available Start: 11-17-2023 End: 11-17-[address] [facility] Start: 10-14-2023 End: 10-14-2023 ambulatory Nereyda A Patricia [facility] Start: 10-14-2023 End: 10-14-2023 Patient encounter procedure Nereyda A Patricia [facility] Start: 10-01-2023 End: 10-01-2023 ambulatory Nereyda A Patricia Facility:[facility] Start: 10-01-2023 End: 10-01-2023 Patient encounter procedure Nereyda A Patricia [facility] Start: 10-01-2023 End: 10-01-2023 ambulatory Nereyda A Aptricia Facility:[facility] Start: 10-01-2023 End: 10-01-2023 Patient encounter procedure Nereyda A Patricia [facility] Start: 09-17-2023 End: 09-17-2023 ambulatory [facility] Start: 09-13-2023 End: 09-13-2023 ambulatory Nereyda A Patricia [facility] Start: 09-13-2023 End: 09-13-2023 Patient encounter procedure Nereyda A Patricia [facility] Start: 08-31-2023 End: 08-31-2023 ambulatory [facility] Start: 07-21-2023 End: 07-21-2023 ambulatory [facility] Start: 06-10-2023 End: 06-10-2023 Patient encounter procedure Nereyda Gomez [facility] Start: 04-15-2023 End: 04-15-2023 Lab Drop off Nereyda Gomez [facility] Start: 04-13-2023 End: 04-13-2023 Patient encounter procedure Nereyda Gomez [facility] Start: 03-24-2023 End: 03-25-[address] RUTHIE LINDA Facility:[facility] Start: 02-27-2023 End: 02-28-[address] VAN [...] Facility:[facility] Start: 07-01-2022 End: 07-02-[address] CLARIEBL PUGA Facility:[facility] Start: 06-16-2022 End: 06-16-[address] VAN SUNG . Facility:[facility] Start: 06-09-2022 End: 06-09-2022 Patient encounter procedure Nereyda Gomez [facility] Start: 06-08-2022 End: 06-09-2022 ambulatory GAMALIEL DALEY Facility:[facility] Start: 05-11-2022 End: 05-11-2022 Patient encounter procedure Bender AVTAR [facility] Start: 04-28-2022 End: 04-29-[address] VAN SUNG . Facility:[facility] Start: 03-31-2022 End: 03-31-2022 Patient encounter procedure Nereyda Gomez [facility] Start: 2019 End: 02-07-2019 Patient encounter procedure DEFAULT PHYSICIAN Facility:[facility] Procedures Date Procedure Procedure Detail Performing Clinician Start: 05-11-2022 Colonoscopy Bender SEBASTIAN Fernandez Comment on above: 2 polyps, diveticulo sis, IH Start: 01-11-2017 Cardioversion Nereyda Martinezfrantz nmetz Back structure, excl uding neck (body structure) Nereyda Gomez Cholecystectomy Nereyda Joyame mcdonough Colonoscopy Nereyda Donatoz History of hernia repair Ave Donatoz Tonsillectomy Nereyda Donatoz Immunizations Immunization Date Immunization Notes Care Provider Fa cility 10-21-2022 SARS-CoV-2 (COVID-19 ) [id number] Nereyda Donatoz [facility] Comment on above: Result Comment: 2022: [id number] 08-26-2021 SARS-CoV-2 (COVID-19 ) mRNA BNT-162b2 vax Nereyda Donatoz [facility] 01-01-2021 SARS-CoV-2 (COVID-19 ) mRNA BNT-162b2 vax Nereyda Gomez [facility] 12-09-2020 SARS-CoV-2 (COVID-19 ) mRNA BNT-162b2 vax Nereyda Gomez [facility] 08-27-2020 influenza virus vaccine, unspecified formulation Nereyda Gomez [facility] 08-16-2017 pneumococcal conjugate vaccine, 13 valent Nereyda Gomez [facility] 08-05-2017 influenza, unspecified formulation Nereyda Gomez [facility] 09-20-2015 zoster vaccine, live [facility] NEGATED: Highlighted row has not occurred!10-13-2023 influenza virus vaccine, unspecified formulation Nereyda Gomez [facility] NEGATED: Highlighted row has not occurred!09-29-2023 influenza virus vaccine, unspecified formulation Nereyda Gomez [facility] Payers Date Payer Category Payer Unknown [id number] 1960 Medicare [id number] 1940 Unknown [id number] 2.16.8 40.1.098537.3.579.2.647 1939 Unknown [id number] 2.16.84 0.1.357463.3.579.2.593 1939 Unknown [id number] 2.16.84 0.1.480951.3.579.2.593 1939 Unknown [id number] 2.16.84 0.1.862187.3.579.2.593 1939 Unknown [id number] 2.16.84 0.1.953096.3.579.2.593 1939 Unknown [id number] 2.16.84 0.1.122131.3.579.2.593 1939 Unknown [id number] 2.16.84 0.1.777565.3.579.2.593 1939 Unknown [id number] 2.16.84 0.1.646080.3.579.2.593 1939 Unknown [id number] 2.16.84 0.1.624541.3.579.2.593 1939 Unknown [id number] 2.16.84 0.1.171551.3.579.2.593 1939 Unknown [id number] 2.16.84 0.1.527065.3.579.2.593 1939 Unknown [id number] 2.16.84 0.1.333293.3.579.2.593 1939 Unknown [id number] 2.16.84 0.1.620162.3.579.2.1259 1939 Unknown [id number] 2.16.84 0.1.975618.3.579.2.1259 1939 Unknown [id number] 2.16.84 0.1.712028.3.579.2.1259 1939 Unknown [id number] 2.16.84 0.1.926718.3.579.2.1259 1939 Unknown [id number] 2.16.84 0.1.751039.3.579.2.1259 1939 Unknown [id number] 2.16.84 0.1.284807.3.579.2.1259 1939 Unknown [id number] 2.16.84 0.1.042013.3.579.2.1259 1939 Unknown [id number] 2.16.84 0.1.006366.3.579.2.1259 1939 Unknown [id number] 2.16.84 0.1.236473.3.579.2.1259 1939 Unknown [id number] 2.16.8 40.1.989373.3.579.2.727 1939 Unknown [id number] 2.16.8 40.1.341744.3.579.2.727 1939 Unknown [id number] 2.16.8 40.1.495268.3.579.2.727 1939 Unknown [id number] 2.16.8 40.1.108662.3.579.2.727 1939 Unknown [id number] 2.16.8 40.1.529621.3.579.2.727 1939 Unknown [id number] 2.16.8 40.1.612214.3.579.2.727 1939 Unknown [id number] 2.16.8 40.1.165018.3.579.2.727 1939 Unknown [id number] 2.16.8 40.1.223906.3.579.2.727 Unknown Social History Date Type Detail Facility Start: 03-31-2022 End: 08-08-2024 Tobacco smoking status Ex-smoker (finding) [facility] Tobacco smoking status Never [facility] Sex Assigned At Male [facility] Functional Status Date Assessment Result Facility 08-08-2024 Functional Status N/A [facility] [place] 10-14-2023 Functional Status N/A [facility] 10-01-2023 Functional Status No [facility] 04-13-2023 Functional Status N/A [facility] 06-09-2022 Functional Status N/A [facility] 05-11-2022 Functional Status N/A [facility] Clinical Notes 03-31-2022 to 08-08-2024 Laboratory Note Date & Type Note Facility 08-08-2024 Hospital Discharge instructions Patient Education 08/08/2024 10:44:33 Cystoscopy Cystoscopy Cystoscopy is a procedure that is used to help diagnose and sometimes treat conditions that affect the lower urinary tract. The lower urinary tract includes the bladder and the urethra. The urethra is the tube that drains urine from the bladder. Cystoscopy is done using a thin, tube-shaped instrument with a light and camera at the end (cystoscope). The cystoscope may be hard or flexible, depending on the goal of the procedure. The cystoscope is inserted through the urethra, into the bladder. Cystoscopy may be recommended if you have: Urinary tract infections that keep coming back. Blood in the urine (hematuria). An inability to control when you urinate (urinary incontinence) or an overactive bladder. Unusual cells found in a urine sample. A blockage in the urethra, such as a urinary stone. Painful urination. An abnormality in the bladder found during an intravenous pyelogram (IVP) or CT scan. Cystoscopy may also be done to remove a sample of tissue to be examined under a microscope (biopsy). Tell a health care provider about: Any allergies you have. All medicines you are taking, including vitamins, herbs, eye drops, creams, and wxyg-rvm-mmxiwsv medicines. Any problems you or family members have had with anesthetic medicines. Any blood disorders you have. Any surgeries you have had. Any medical conditions you have. Whether you are or may be . What are the risks? Generally, this is a safe procedure. However, problems may occur, including: Infection. Bleeding. Allergic reactions to medicines. Damage to other structures or organs. What happens before the procedure? Medicines Ask your health care provider about: Changing or stopping your regular medicines. This is especially important if you are taking diabetes medicines or blood thinners. Taking medicines such as aspirin and ibuprofen. These medicines can thin your blood. Do not take these medicines unless your health care provider tells you to take them. Taking wxbi-jxc-tdqytgo medicines, vitamins, herbs, and supplements. Tests You may have an exam or testing, such as: X-rays of the bladder, urethra, or kidneys. CT scan of the abdomen or pelvis. Urine tests to check for signs of infection. General instructions Follow instructions from your health care provider about eating or drinking restrictions. Ask your health care provider what steps will be taken to help prevent infection. These steps may include: ?Washing skin with a germ-killing soap. ?Taking antibiotic medicine. Plan to have a responsible adult take you home from the hospital or clinic. What happens during the procedure? You will be given one or more of the following: ?A medicine to help you relax (sedative). ?A medicine to numb the area (local anesthetic). The area around the opening of your urethra will be cleaned. The cystoscope will be passed through your urethra into your bladder. Germ-free (sterile) fluid will flow through the cystoscope to fill your bladder. The fluid will stretch your bladder so that your health care provider can clearly examine your bladder cortez. Your doctor will look at the urethra and bladder. Your doctor may take a biopsy or remove stones. The cystoscope will be removed, and your bladder will be emptied. The procedure may vary among health care providers and hospitals. What can I expect after the procedure? After the procedure, it is common to have: Some soreness or pain in your abdomen and urethra. Urinary symptoms. These include: ?Mild pain or burning when you urinate. Pain should stop within a few minutes after you urinate. This may last for up to 1 week. ?A small amount of blood in your urine for several days. ?Feeling like you need to urinate but producing only a small amount of urine. Follow these instructions at home: Medicines Take wgsw-cty-ggrehqk and prescription medicines only as told by your health care provider. If you were prescribed an antibiotic medicine, take it as told by your health care provider. Do not stop taking the antibiotic even if you start to feel better. General instructions Return to your normal activities as told by your health care provider. Ask your health care provider what activities are safe for you. If you were given a sedative during the procedure, it can affect you for several hours. Do not drive or operate machinery until your health care provider says that it is safe. Watch for any blood in your urine. If the amount of blood in your urine increases, call your health care provider. Follow instructions from your health care provider about eating or drinking restrictions. If a tissue sample was removed for testing (biopsy) during your procedure, it is up to you to get your test results. Ask your health care provider, or the department that is doing the test, when your results will be ready. Drink enough fluid to keep your urine pale yellow. Keep all follow-up visits. This is important. Contact a health care provider if: You have pain that gets worse or does not get better with medicine, especially pain when you urinate. You have trouble urinating. You have more blood in your urine. Get help right away if: You have blood clots in your urine. You have abdominal pain. You have a fever or chills. You are unable to urinate. Summary Cystoscopy is a procedure that is used to help diagnose and sometimes treat conditions that affect the lower urinary tract. Cystoscopy is done using a thin, tube-shaped instrument with a light and camera at the end. After the procedure, it is common to have some soreness or pain in your abdomen and urethra. Watch for any blood in your urine. If the amount of blood in your urine increases, call your health care provider. If you were prescribed an antibiotic medicine, take it as told by your health care provider. Do not stop taking the antibiotic even if you start to feel better. This information is not intended to replace advice given to you by your health care provider. Make sure you discuss any questions you have with your health care provider. Document Revised: 07/15/2022 Document Reviewed: 06/13/2021 [employer] Patient Education 2023 [employer]. Follow Up Care 08/07/2024 08:55:26 With:MARQUIS CAMPBELL MD, URL Address: When: Unknown [facility] 08-08-2024 Note Patient Education Urology Cystoscopy Cystoscopy is a procedure that is used to help diagnose and sometimes treat conditions that affect the lower urinary tract. The lower urinary tract includes the bladder and the urethra. The urethra is the tube that drains urine from the bladder. Cystoscopy is done using a thin, tube-shaped instrument with a light and camera at the end (cystoscope). The cystoscope may be hard or flexible, depending on the goal of the procedure. The cystoscope is inserted through the urethra, into the bladder. Cystoscopy may be recommended if you have: ? Urinary tract infections that keep coming back. ? Blood in the urine (hematuria). ? An inability to control when you urinate (urinary incontinence) or an overactive bladder. ? Unusual cells found in a urine sample. ? A blockage in the urethra, such as a urinary stone. ? Painful urination. ? An abnormality in the bladder found during an intravenous pyelogram (IVP) or CT scan. Cystoscopy may also be done to remove a sample of tissue to be examined under a microscope (biopsy). Tell a health care provider about: ? Any allergies you have. ? All medicines you are taking, including vitamins, herbs, eye drops, creams, and wcxe-cki-ukdelaf medicines. ? Any problems you or family members have had with anesthetic medicines. ? Any blood disorders you have. ? Any surgeries you have had. ? Any medical conditions you have. ? Whether you are or may be . What are the risks? Generally, this is a safe procedure. However, problems may occur, including: ? Infection. ? Bleeding. ? Allergic reactions to medicines. ? Damage to other structures or organs. What happens before the procedure? Medicines Ask your health care provider about: ? Changing or stopping your regular medicines. This is especially important if you are taking diabetes medicines or blood thinners. ? Taking medicines such as aspirin and ibuprofen. These medicines can thin your blood. Do not take these medicines unless your health care provider tells you to take them. ? Taking xeen-dpx-bdcadsa medicines, vitamins, herbs, and supplements. Tests You may have an exam or testing, such as: ? X-rays of the bladder, urethra, or kidneys. ? CT scan of the abdomen or pelvis. ? Urine tests to check for signs of infection. General instructions ? Follow instructions from your health care provider about eating or drinking restrictions. ? Ask your health care provider what steps will be taken to help prevent infection. These steps may include: ? Washing skin with a germ-killing soap. ? Taking antibiotic medicine. ? Plan to have a responsible adult take you home from the hospital or clinic. What happens during the procedure? ? You will be given one or more of the following: ? A medicine to help you relax (sedative). ? A medicine to numb the area (local anesthetic). ? The area around the opening of your urethra will be cleaned. ? The cystoscope will be passed through your urethra into your bladder. ? Germ-free (sterile) fluid will flow through the cystoscope to fill your bladder. The fluid will stretch your bladder so that your health care provider can clearly examine your bladder cortez. ? Your doctor will look at the urethra and bladder. Your doctor may take a biopsy or remove stones. ? The cystoscope will be removed, and your bladder will be emptied. The procedure may vary among health care providers and hospitals. What can I expect after the procedure? After the procedure, it is common to have: ? Some soreness or pain in your abdomen and urethra. ? Urinary symptoms. These include: ? Mild pain or burning when you urinate. Pain should stop within a few minutes after you urinate. This may last for up to 1 week. ? A small amount of blood in your urine for several days. ? Feeling like you need to urinate but producing only a small amount of urine. Follow these instructions at home: Medicines ? Take otjo-ulv-lhlfwwq and prescription medicines only as told by your health care provider. ? If you were prescribed an antibiotic medicine, take it as told by your health care provider. Do not stop taking the antibiotic even if you start to feel better. General instructions ? Return to your normal activities as told by your health care provider. Ask your health care provider what activities are safe for you. ? If you were given a sedative during the procedure, it can affect you for several hours. Do not drive or operate machinery until your health care provider says that it is safe. ? Watch for any blood in your urine. If the amount of blood in your urine increases, call your health care provider. ? Follow instructions from your health care provider about eating or drinking restrictions. ? If a tissue sample was removed for testing (biopsy) during your procedure, it is up to you to get your test results. Ask your health care provider, (more content not included)... [facility] 07-05-2024 Note Comprehensive Care [facility] enter Nephrology Clinic Patient: Nadir Heredia; 84 y.o. Visit date: 07/05/24 Reason for today's visit: Follow up for CKD stage 3, Hypertension, Edema/ Fluid overload, and Electrolytes disturbances SUBJECTIVE: BACKGROUND: Nadir Heredia is a 84 y.o. male has a past medical history of Atrial fibrillation ([facility]), CHF (congestive heart failure) ([facility]), Chronic kidney disease, COPD (chronic obstructive pulmonary disease) ([facility]), Coronary artery disease, Diabetes mellitus ([facility]), Heart valve disease, Hypertension, Pericardial effusion, and Sleep apnea. History of paroxysmal atrial fibrillation maintained on anticoagulation with Eliquis, aortic stenosis, renal artery stenosis, and hypertension. He had stenting of the left renal artery from the left radial approach on 05/01/2015 (Express SD 6 mm x 18 mm stent). He was admitted to the [facility] in August 2022 due to hyponatremia, [...] p (more content not included)... [facility] 06-07-2024 Note Attestation signed by Ruthie Linda MD at 06/07/2024 7:40 PM I saw, interviewed, examined and evaluated the patient with Nephrology fellow Dr. Jeff Reyes. I participated in the medical management of the patient. I reviewed the fellow's note and agree with the fellow's documentation in the note. Ruthie Linda MD Faculty, Division of Nephrology, Department of Medicine, [facility]. [facility] Patient: Nadir Heredia; 84 y.o. Visit date: 06/07/24 Reason for today's visit: Follow up for CKD stage 3, Hypertension, Edema/ Fluid overload, and Electrolytes disturbances SUBJECTIVE: BACKGROUND: Nadir Heredia is a 84 y.o. male has a past medical history of Atrial fibrillation ([facility]), CHF (congestive heart failure) ([facility]), Chronic kidney disease, COPD (chronic obstructive pulmonary disease) ([facility]), Coronary artery disease, Diabetes mellitus ([facility]), Heart valve disease, Hypertension, Pericardial effusion, and Sleep apnea. History of paroxysmal atrial fibrillation maintained on anticoagulation with Eliquis, aortic stenosis, renal artery stenosis, and hypertension. He had stenting of the left renal artery from the left radial approach on 05/01/2015 (Express SD 6 mm x 18 mm stent). He was admitted to the [facility] in August 2022 due to hyponatremia, [...] 25 (more content not included)... [facility] 06-05-2024 Note [place] [facility] Subjective Nadir Heredia is a [...] diuretic therapy. He was admitted to the [facility] in August 2022 due to hyponatremia, hyperkalemia and acute kidney injury, leukocytosis secondary to COVID-19 causing dehydration. I saw him on 05/24/2023 and the office and he had significant evidence of volume overload by exam and echocardiogram. I intensified his diuretic regimen. He ended up getting admitted to the [facility] with acute heart failure exacerbation and [...] o (more content not included)... [facility] 03-03-2024 Note [facility] Subjective Nadir Heredia is a [...] extremity edema. He was admitted to the [facility] in August 2022 due to hyponatremia, hyperkalemia and acute kidney injury, leukocytosis secondary to COVID-19 causing dehydration. I saw him on 05/24/2023 and the office and he had significant evidence of volume overload by exam and echocardiogram. I intensified his diuretic regimen. He ended up getting admitted to the [facility] with acute heart failure exacerbation and [...] N (more content not included)... [facility] 11-17-2023 Note Attestation signed by Ruthie Linda MD at 11/21/2023 6:55 PM I saw, interviewed, examined and evaluated the patient with Nephrology fellow, Dr. Dana Aparicio. I participated in the medical management of the patient. I reviewed the fellow's note and agree with the fellow's documentation in the note. Ruthie Linda MD Faculty, Division of Nephrology, Department of Medicine, [facility]. [facility] Patient: Nadir Heredia; 83 y.o. Visit date: 11/17/23 Reason for today's visit: Follow up for CKD stage 3, Hypertension, Edema/ Fluid overload, and Electrolytes disturbances SUBJECTIVE: BACKGROUND: Nadir Heredia is a 83 y.o. male has a past medical history of Atrial fibrillation ([facility]), CHF (congestive heart failure) ([facility]), Chronic kidney disease, COPD (chronic obstructive pulmonary disease) ([facility]), Coronary artery disease, Diabetes mellitus ([facility]), Heart valve disease, Hypertension, Pericardial effusion, and Sleep apnea. History of paroxysmal atrial fibrillation maintained on anticoagulation with Eliquis, aortic stenosis, renal artery stenosis, and hypertension. He had stenting of the left renal artery from the left radial approach on 05/01/2015 (Express SD 6 mm x 18 mm stent). He was admitted to the [facility] in August 2022 due to hyponatremia, [...] time (more content not included)... [facility] 10-14-2023 Hospital Discharge instructions Patient Education [...] as fried or sweet foods. These include tajik fries, hamburgers, cookies, candies, and soda. Drink enough fluid to keep your urine pale yellow. General instructions Exercise regularly or as told by your health care provider. Try to do 150 minutes of moderate exercise each week. Use the bathroom when you have the urge to go. Do not hold it in. Take svrr-dja-fylawcy and prescription medicines only as told by [...] to keep your urine pale yellow. Take ldor-rwh-grmqoah and prescription medicines only as told by your health care provider. This includes any fiber supplements. This information is not intended to replace advice given to you by your health care provider. Make sure you discuss any questions you have with your health care provider. Document Revised: 09/18/2020 Document Reviewed: 09/18/2020 [employer] Patient Education 2022 [employer]. Follow Up Care 10/01/2023 12:57:46 With:Nereyda Gomez CNP Address: When:1 month [facility] 10-01-2023 Hospital Discharge [...] Bulgur wheat. Millet. Quinoa. Bran muffins. Popcorn. Goldsmith wafer crackers. Meats and other proteins [place] beans, kidney beans, and mendez beans. Soybeans. [...] Cream cheese. Sour cream. Fats and oils [place]. Beverages Soft drinks. Other foods Cakes [...] provider. Document Revised: 03/06/2021 Document Reviewed: 03/06/2021 [employer] Patient Education 2022 [employer]. Follow Up Care 09/20/2023 08:43:45 With:Nereyda Gomez CNP Address:Unknown When: Unknown [facility] 10-01-2023 Evaluation + Plan note Future Scheduled TestsCBC w/ Auto Diff 10/01/23Comprehensive Metabolic Panel 10/01/23Thyroid Stimulating Hormone 10/01/23 [facility] 09-17-2023 Note [facility] Subjective Nadir Heredia is a [...] extremity edema. He was admitted to the [facility] in August 2022 due to hyponatremia, hyperkalemia and acute kidney injury, leukocytosis secondary to COVID-19 causing dehydration. I saw him on 05/24/2023 and the office and he had significant evidence of volume overload by exam and echocardiogram. I intensified his diuretic regimen. He ended up getting admitted to the [facility] with acute heart failure exacerbation and [...] Allergies Allergen Reactions Iodinated Contrast Media Nitroglycerin Gmzocwp-Eku-Gik Reductase Inhibitors Medications Current Outpatient Medications: (more content not included)... [facility] 08-31-2023 Note Patient: Nadir lin Procedure Information Date/Time: 08/31/23 1300 Procedure: TRANSESOPHAGEAL ECHO (MAKR) Location: [facility] Heart and [...] patient who. Additional Equipment Requests [facility] 07-21-2023 Note [place] [facility] Subjective Nadir Heredia is a 83 y.o. year old male patient being seen for Follow-up Patient Active Problem List Diagnosis Aortic valve disorder Atherosclerosis of renal artery (CMS/HCC) Chronic atrial fibrillation ([facility]) Coronary arteriosclerosis Bradycardia Aortic valve [...] extremity edema. He was admitted to the [facility] in August 2022 due to hyponatremia, hyperkalemia and acute kidney injury, leukocytosis secondary to COVID-19 causing dehydration. I saw him on 05/24/2023 and the office and he had significant evidence of volume overload by exam and echocardiogram. I intensified his diuretic regimen. He ended up getting admitted to the [facility] with acute heart failure exacerbation and [...] Allergies Allergen Reactions Iodinated Contrast Media Nitroglycerin Srvhdyh-Ldt-Zlw Reductase Inhibitors Medications Current Outpatient Medications: acyclovir [...] by (more content not included)... [facility] 06-10-2023 Hospital Discharge instructions Patient Education [...] hard liquor (44 mL). General instructions Take qamp-fla-cokrzcn and prescription medicines only as told by [...] provider. Document Revised: 02/19/2021 Document Reviewed: 02/19/2021 [employer] Patient Education 2022 [employer]. Follow Up Care 04/13/2023 14:39:27 With:Nereyda Gomez CNP Address: When:3 months [facility] 04-13-2023 Hospital Discharge [...] including vitamins, herbs, eye drops, creams, and jval-zya-ohhhkob medicines. Any problems you or family members [...] provider tells you to take them. Taking wtqq-pyn-lsdvwvo medicines, vitamins, herbs, and supplements. General instructions [...] provider. Document Revised: 10/26/2022 Document Reviewed: 06/24/2022 [employer] Patient Education 2022 [employer]. Follow Up Care 04/09/2023 11:27:16 With:Nereyda Gomez CNP Address: When:1 month [facility] 07-18-2022 Note EXAM: US CHANI DOP [...] authenticated by: LI ROBERTS Date: 2022-07-18 09:05 [facility] 06-09-2022 Hospital Discharge instructions [...] per serving. Talk with a diet and ad operations specialist (dietitian) if you have questions about [...] Bulgur wheat. Millet. Quinoa. Bran muffins. Popcorn. Goldsmith wafer crackers. Meats and other proteins [place], kidney, and mendez beans. Soybeans. Split peas. [...] Cream cheese. Sour cream. Fats and oils [place]. Beverages Soft drinks. Other foods Cakes [...] 11/01/2006 Document Revised: 09/05/2018 Document Reviewed: 09/05/2018 [employer] Patient Education 2020 [employer]. 06/09/2022 10:13:34 Hemorrhoids Hemorrhoids Hemorrhoids are swollen [...] 3 times a day. General instructions Take slso-xcy-lzxgfyr and prescription medicines only as told by [...] 10/29/2001 Document Revised: 03/29/2020 Document Reviewed: 03/23/2019 [employer] Patient Education 2020 [employer]. 06/09/2022 10:13:31 Diverticulosis Diverticulosis Diverticulosis is a [...] overweight. Not getting enough exercise. Smoking. Taking vhuc-epl-vgfvbcr pain medicines, like aspirin and ibuprofen. Having [...] health care provider or your diet and ad operations specialist (dietitian). ?Take a fiber supplement or probiotic, if your health care provider approves. Take sqvn-mma-oekppmc and prescription medicines only as told by [...] 07/29/2005 Document Revised: 10/14/2018 Document Reviewed: 09/20/2017 [employer] Patient Education 2020 [employer] 06/09/2022 10:13:30 Colon Polyps Colon Polyps Polyps [...] 07/28/2005 Document Revised: 02/16/2019 Document Reviewed: 02/16/2019 [employer] Patient Education 2020 [employer]. Follow Up Care 05/13/2022 14:18:17 With:Nereyda Gomez CNP Address: When:1 year only if needed [facility] 05-11-2022 Evaluation + Plan note Extrac fernando from: Title:Anesthesia post op endo Author:Jeffrey Gr MD Date:05/11/22 Plan Transfer/ Discharge: Patient can be discharged from PACU when criteria met. Condition good. Extracted from: Title:Anesthesia Pre-Op endo 2 Author:Jeffrey Gr MD Date:05/11/22 Plan [place] [employer] Anesthesiologists (ASA) physical status classification: [...] heart and lungs, allergic reactions, and .. [facility]06-27-2022 Hospital Discharge instructions Patient Education 05/11/2022 11:13:39 [...] 07/28/2005 Document Revised: 02/16/2019 Document Reviewed: 02/16/2019 [employer] Patient Education 2020 [employer]. 05/11/2022 11:13:39 Diverticulosis MAGR (CUSTOM) Diverticulosis Many [...] unsweetened, w/added ascorbic acid 1 cup 0.5 [place] 1 cup 0.7 Vegetables Cooked Green beans 1 cup 4.0 Carrots 1/2 cup sliced 2.3 Peas 1 cup 8.8 Potato (baked, with skin) 1 medium potato 3.8 Raw [place] (with peel) 1 cucumber 1.5 Lettuce 1 [...] Nutrient Database for Standard Reference. Available at http://www.[employer].usda.gov/fnic/foodcomp/search/. Information adapted from: [facility] Patient Information 2009 [place]. [facility] 2012 http://www.[employer]/contents/yeyqhxbikaoh-qpmaeue-fhfpzj-the-basics Follow Up Care 03/31/2022 10:27:32 With:Napoleon MENDEZ Address: [address] [place] [address] Business (1) When: Unknown Comments:office will call for follow up [facility]05-17-2022 Hospital Discharge instructions Patient Education 03/31/2022 09:58:01 [...] including vitamins, herbs, eye drops, creams, and jcyh-utv-bzwiaqq medicines. Any problems you or family members [...] 10/29/2001 Document Revised: 08/24/2018 Document Reviewed: 01/12/2017 [employer] Patient Education [employer]. Follow Up Care 03/23/2022 12:11:50 With:Nereyda Gomez CNP Address: When:1 month [facility] evaluation + Plan note Future Appointments Appointment Date:05/25/2022 08:45:00 AM Scheduled Provider: Location:[facility] Appointment Type:Surgery FT [facility] Evaluation + Plan note Future Appointments Appointment Date:06/10/2023 10:40:00 AM Scheduled Provider:Nereyda Gomez CNP Location[place] App[facility]ment Type:[facility] Follow Up Future Scheduled Tests Laboratory* Fecal WBC Lactoferrin 04/13/23 * Giardia lamblia, Direct Detection EIA 04/13/23 * O & P Exam, Routine 04/13/23 * Clostridium Difficile PCR 04/13/23 * Enteric Panel by PCR 04/13/23 [facility] Evaluation + Plan note Future Appointments Appointment Date:06/10/2023 10:40:00 AM Scheduled Provider:Nereyda Gomez CNP [place] Appointment Type:[facility] Follow Up Diagnostic Tests Pending * O & P Exam, Routine 04/15/23 * Giardia lamblia, Direct Detection EIA [facility] Appointment Date:09/13/2023 10:40:00 AM Scheduled Provider:Nereyda Gomez CNP Location:[facility] Appointment Type:[facility] Follow Up [facility] evaluation + Plan note Future Appointments Appointment Date:10/14/2023 02:20:00 PM Scheduled Provider:Nereyda Gomez CNP Location:[facility] Appointment Type:[facility] Follow Up Future Scheduled Tests Laboratory* CBC w/ Auto Diff 10/01/23 * Comprehensive Metabolic Panel 10/01/23 * Thyroid Stimulating Hormone 10/01/23 [facility] Evaluation + Plan note Future Appointments Appointment Date:12/09/2023 02:00:00 PM Scheduled Provider:Nereyda Gomez CNP Location:[facility] Appointment Type:[facility] Follow Up Future Scheduled Tests Laboratory* CBC w/ Auto Diff 10/01/23 * Comprehensive Metabolic Panel 10/01/23 * Thyroid Stimulating Hormone 10/01/23 [facility] Hospital course Narrative No data available for this section [facility] Hospital Discharge instructions No data available for this section [facility] No data available for this section [facility] Summary Purpose Family History No Family History Records FoundNo Family History Records Found No data available for this section No data available for this section No data available for this section No data available for this section No Family History Records FoundNo Family History Records Found No data available for this section No Family History Records Found Advance Directives No Advanced Directives Records FoundNo Advanced Directives Records FoundNo Advanced Directives Records FoundNo Advanced Directives Records FoundNo Advanced Directives Records Found Additional Source Comments (unrecognized sect ion and content) No Status Records FoundNo Status Records FoundNo Status Records FoundNo Status Records FoundNo Status Records Found INFORMATION SOURCE (unrecogn ized section and content) DATE CREATED AUTHOR 02/09/2019 [facility] DATE CREATED AUTHOR AUTHOR'S ORGANIZ ATION 03/28/2023 [facility] DATE CREATED AUTHOR AUTHOR'S ORGANIZ ATION 07/12/2024 [facility] DATE CREATED AUTHOR AUTHOR'S ORGANIZ ATION 08/05/2024 [facility] DATE CREATED AUTHOR AUTHOR'S ORGANIZ ATION 08/14/2024 Nick Collier [facility] Care Team (unrecognized sect ion and content) Personnel Name: Van Sung MD Address: [address] [place], [place] [address] [address] [place] Personnel Name: Van Sung MD Address: [address] [place], [place] [address], [place] [address] [place] Personnel Name: Van Sung MD Address: Address: [address] [place] [address] [place] [address] [place] Personnel Name: Van Sung MD Address: Address: [address] [place], [place] [address], [place] [address]- [place] Personnel Name: Van Sung MD Address: Address: [address] [place] [address], [place] [address]- [place] Personnel Name: Van Sung MD Address: Address: [address] [place] [address], [place] [address]- [place] Personnel Name: Van Sung MD Address: Address: [address] [place] [address], [place] [address]- [place] Personnel Name: Van Sung MD Address: Address: [address] [place] [address] [place] [address]- [place] Personnel Name: Van Sung MD Address: Address: [address] [place] [address], [place] [address]- [place] Personnel Name: Van Sung MD Address: Address: [address] [place], [place] [address], [place] [address]- [place] Personnel Name: Van Sung MD Address: Address: [address] [place] [address], [place] [address]- [place] FOR RECORDS PERTAINING TO PATIENTS WHO [...] BE BASED ON THE PRIMARY CLINICAL RECORDS. [employer] [facility]. provides no warranty or guarantee of the accuracy or completeness of information in this document.
[2024-08-16 09:28] LABS: SARS-CoV-2 Ag NEGATIVE (NEGATIVE)
[2024-08-16 09:29] LABS: Internal Control Within Normal Limits
[2024-08-16 09:30] LABS: INR 0.99; Prothrombin Time 10.5 sec (9.0-11.6)
[2024-08-16 09:36] LABS: Alanine Aminotransferase 26 U/L (16-63); Albumin Level 3.5 g/dL (3.4-5.0); Alkaline Phosphatase 108 U/L (46-116); Aspartate Amino Transferase 15 U/L (15-37); BUN Creatinine Ratio 14.6; Bilirubin Total 0.6 mg/dL (0.2-1.0); Calcium 9.4 mg/dL (8.5-10.1); Chloride 101 mmol/L (98-107); Estimated GFR (African America 46 (>=60 mL/min/1.73m^2); Estimated GFR (Non-African Ame 38 (>=60 mL/min/1.73m^2); Globulin 3.4 g/dL; Glucose 338 mg/dL (74-106); Lactate/Lactic Acid 1.8 mmol/L (0.4-2.0); Potassium 4.1 mmol/L (3.5-5.1); Sodium 138 mmol/L (136-145); Total Protein 6.9 g/dL (6.4-8.2)
[2024-08-16 09:50] LABS: Anion Gap 14.2; Carbon Dioxide 26.9 mmol/L (21.0-32.0)
[2024-08-16 10:00] LABS: Bilirubin Urine NEGATIVE (NEGATIVE); Blood Urine NEGATIVE (NEGATIVE); Clarity Urine CLEAR (CLEAR); Color Urine LT. YELLOW (YELLOW); Glucose Urine UA >=1000 mg/dL (NEGATIVE); Ketones Urine NEGATIVE (NEGATIVE); Leukocyte Esterase Urine NEGATIVE (NEGATIVE); Nitrite Urine NEGATIVE (NEGATIVE); Protein Urine NEGATIVE (NEG/TRACE); Urobilinogen Urine 0.2 EU/dL (0.2-1.0)
[2024-08-16 10:03] LABS: Urine Microscopic Indicated NO
[2024-08-16] MEDS: ACETAMINOPHEN 325 MG TABLET 650 MG PO (10:28)
--- OUTSIDE RECORDS SUMMARY | 2024-08-16 11:16 | XMS_ITS | CCD ---
Author Organization [facility] CliniSytn Care Team Providers Care Body Specialist Name Role Phone PHYSICIAN, DEFAULT Admitting Unavailable PHYSICIAN, DEFAULT Attending Unavailable VNA SUNG Primary Care Unavailable Van Sung Primary Care Physician HOY ., DR ARAUJO Primary Care Unavailable HOY ., DR ARAUJO Consulting Unavailable HOY ., DR ARAUJO Attending Unavailable HOY ., DR ARAUJO Admitting Unavailable ZIEBER, DR CLOVER Zimmer Consulting Unavailable MESA GRANDE, DR CRAMER Consulting Unavailable HOY ., DR ARAUJO Primary Care Unavailable MESA GRANDE, DR CRAMER Attending Unavailable MESA GRANDE, DR CRAMER Admitting Unavailable MESA GRANDE, DR CRAMER Consulting Unavailable HOY ., DR ARAUJO Primary Care Unavailable MESA GRANDE, DR CRAMER Attending Unavailable MESA GRANDE, DR CRAMER Admitting Unavailable HOY ., DR ARAUJO Consulting Unavailable HOY ., DR ARAUJO Primary Care Unavailable HOY ., DR ARAUJO Attending Unavailable HOY ., DR ARAUJO Admitting Unavailable MESA GRANDE, DR CRAMER Consulting Unavailable HOY ., DR ARAUJO Primary Care Unavailable MESA GRANDE, DR CRAMER Attending Unavailable MESA GRANDE, DR CRAMER Admitting Unavailable HOY ., DR [...] FONSECA Consulting Unavailable HARLEY, MYNOR Consulting Unavailable Dwyer, Yefri Consulting Unavailable ZELAYA, FRANCISCO Consulting Unavailable PELLissa, LI Consulting Unavailable RUTHIE LINDA Attending Unavailable JEFF REYES Attending Unavailable MOUKARBEL, CLARIBEL Attending Unavailable MOUKARBEL, CLARBIEL Attending Unavailable MOUKARBEL, CLARIBEL Attending Unavailable MOUKARBEL, CLARIBEL Attending Unavailable DANA APARICIO Attending Unavailable MOUKARBEL, CLARIBEL Referring Unavailable ROBINSON CHICAS Attending Unavailable MICHAELLE, BARRIE Gil Attending Unavailable AVIVA, ROBINSON Marroquin Attending Unavailable AVIVA, ROBINSON A Attending Unavailable AVIVA, ROBINSON A Attending Unavailable BROWN, ROBINSON A Attending Unavailable BROWN, ROBINSON A Attending Unavailable BEJ, BARRIE Gil Attending Unavailable AVIVA, ROBINSON A Attending Unavailable [...] acid] Drug Allergy 11-04-20 13 Unknown [facility] (1 source) NITRO PATCH; Translations: [NITRO PATCH] Propensity to adverse reactions (disorder) 03-18-20 12 [facility] (13 sources) Contrast media; Translations: [Contrast Dye] Drug allergy Unknown (qualifier value) [facility] (13 sources) Hmg-Coa Reductase Inhibitors (Statins); Translations: [statins] Allergy to substance Unknown [facility] (20 sources) Nitroglycerin; Translations: [nitroglycerin] Drug Allergy 02-23-20 22 Unknown (qualifier value) [facility] (2 sources) black walnut pollen extract; Translations: [GWYUNGU-ITB-UMW REDUCTASE INHIBITORS] Drug Allergy 04-21-20 17 [facility] Repository (1 source) Iodine (And Iodine Containting Drugs) Drug allergy (disorder) 05-28-20 16 [facility] Repository (1 source) IODINATED CONTRAST MEDIA; Translations: [IODINATED CONTRAST MEDIA] Propensity to adverse reactions to drug (disorder) 07-17-20 [facility] (1 source) Aminolevulinic Acid; Translations: [aminolevulinic acid] Drug Allergy 11-04-[address] [facility] Repository (1 source) Nitroglycerin; Translations: [Nitroglycerin Patch] Drug Allergy [facility] Medications Current Medications Medication Drug [...] day(s), # 90 cap(s), Refills(s) 0, Pharmacy: [facility]/pharmacy #[id number], 185, cm, 06/10/23 10:45:00 EDT, Height/Length Dosing, 97, kg, 06/10/23 10:45:00 EDT, Weight Dosing Start Date: 06/10/23 Stop Date: 09/08/23 Status: Ordered Start: 08-28-2020 take 1 capsule by mo uth once daily Align 4 mg oral capsule 4 mg = 1 cap(s), Oral, Daily, Take after completing the Antibiotics course, # 28 cap(s), Refills(s) 0, [id number] 185, cm, 08/28/20 12:05:00 EDT, [...] Daily Prior to colonoscopy Per physician's instructions, [facility]/pharmacy #[id number], 185, cm, 03/31/22 9:58:00 EDT, Height/Length Dosing, [...] Date: 01/09/19 Status: Ordered 60 actuat tiotropium 0.02750 mg/actuat inhalation spray (11 sources) Anticholinergic Start: [...] water, # 160 cap(s), Refills(s) 1, Pharmacy: [facility]/pharmacy #[id number], 185, cm, 08/28/20 12:05:00 EDT, Height/Length [...] disease (2 sources) Atherosclerotic heart disease of [place] coronary artery without angina pectoris; Translations: [Atherosclerotic heart disease of [place] coronary artery without angina pectoris] Onset: 03-03-2024 [...] source) Long-term current use of anticoagulant; Translations: [penitentiary (current) use of anticoagulants] Onset: 08-08-2024 Episodic [...] Onset: 04-30-2022 Episodic Other aftercare (1 source) 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 [facility] Urology Office/Clinic Noteon 08-08-2024 Urology Office/Clinic Note Urology Office/Clinic Note Chief Complaint follow up to [facility] ER HPI Staff 84 year old male new patient follow up to [facility] 08/06/24 presented due to redness on the [...] 1. 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) Pt presented to [facility] ER 08/06/24 with redness on the shaft [...] urinary channel, (more content not included)... Normal [facility] Comment on above: Result Comment: Elec tronically Signed By: MARQUIS CAMPBELL MD\.br\Date and Time Signed: 08/08/24 11:05 EDT\.br\Electronically Co-Signed By: Roxy Gatica\.br\Date and Time Co-Signed: 08/08/24 10:46 EDT\.br\Electronically Co-Signed By: Roxy Gatica\.br\Date and Time Co-Signed: 08/08/24 10:53 EDT Office Visiton 07-05-2024 Follow-up visit [id number] Nadir Heredia 1940 M Date Provider Department Center 07/05/2024 [facility] NEPHRO Comprehensiv Family History Problem Relation Age of Onset Coronary artery disease Father Family Status - Relation Status Age at Father Level of Service:51825 SC OFFICE/OUTPATIENT ESTABLISHED MOD MDM 30 MIN Reason for Visit and Comments: Follow-up [051608] [facility] 36on 06-20-2024 36 Regarding echo result from [...] her he should have another echo at [facility] in Oct 2024, prior to his follow up with Dr. Puga in Nov 2024. She verbalized understanding. Echo order faxed to [facility]. [facility] 06-14-2024 36 Patients called and stating that dr. Linda told her to call and let him know that her husbands blood pressure is better and she would like a call back. [facility] 06-09-2024 36 Spoke with patient's Shanna and made sure she understood to increase labetalol per Dr. Linda. She also understands not to resume hydralazine. [facility] 06-07-2024 36 I'm Stephanie from Dr. Puga's office with Cardiology. Patient's daughter called and wanted to know if Dr. Linda had restarted patient's hydralazine- NOT hydroxyzine. I don't see in the note that it was restarted. Dr. Linda, or someone from his office- can you clarify this for me? Thanks so much. [facility] Follow-Upon 06-07-2024 Follow-Up [id number] Nadir Heredia 1940 M Date Provider Department Center 06/07/2024 [facility] NEPHRO Comprehensiv Family History Problem Relation Age of Onset Coronary artery disease Father Family Status - Relation Status Age at Father Level of Service:54554 SC OFFICE/OUTPATIENT ESTABLISHED MOD MDM 30 MIN () Reason for Visit and Comments: Follow-up [488334] [facility] Telephoneon 06-07-2024 Telephone [id number] Nadir Heredia 1940 M Date Provider Department Center 06/07/2024 [facility] NEPHRO Comprehensiv Family History Problem Relation Age of Onset Coronary artery disease Father Family Status - Relation Status Age at Father [facility] Office Visiton 06-05-2024 Follow-up visit [id number] Steen 1940 M Date Provider Department Center 06/05/2024 CLARIBEL VILLALOBOS [facility] Family History Problem Relation Age of Onset Coronary artery disease Father Family Status - Relation Status Age at Father Level of Service:65872 SC OFFICE/OUTPATIENT ESTABLISHED MOD MDM 30 MIN [facility] 05-17-2024 36 Faxed lab orders 05/17/24 [facility] 3605-15-2024 36 Patient states that he needs his blood work to go [facility] before his appointment on 05/31/24. [facility] 05-10-2024 36 LM on VM for patient or his to return my call. [facility] 05-08-2024 36 Patient's called with concerns of elevated BP since hydralazine was stopped at last apt. She said sometimes it's very good - 110/60's and sometimes 152/70. He's scheduled to see you in a few weeks. Did you want to change anything? Please advise. Thanks. [facility] 04-04-2024 36 Regarding blood work from 04/03/2024: MD Stephanie Kelley MA Stable renal function. Continue same treatment and follow-up as planned. Patient's made aware. [facility] Orders Onlyon 03-21-2024 Orders Only [id number] Nadir Heredia 1940 M Date Provider Department Center 03/21/2024 LUCRETIA BENZ MIL[facility] Family History Problem Relation Age of Onset Coronary artery disease Father Family Status - Relation Status Age at Father [facility] Office Visiton 03-03-2024 Follow-up visit [id number] Nadir Heredia 1940 M Date Provider Department Center 03/03/2024 CLARIBEL VILLALOBOS [facility] Family History Problem Relation Age of Onset Coronary artery disease Father Family Status - Relation Status Age at Father Level of Service:88556 SC OFFICE/OUTPATIENT ESTABLISHED MOD MDM 30 MIN Reason for Visit and Comments: Follow-up [098734] [facility] 12-29-2023 36 Called and spoke with patient and rescheduled patients appointment from 05/31 to 06/07. [facility] 12-28-2023 36 Called patient lvm to contact the office back to reschedule appointment. [facility] Follow-Upon 11-17-2023 Follow-Up [id number] Nadir Heredia 1940 M Date Provider Department Center 11/17/2023 [facility] NEPHRO Comprehensiv Family History Problem Relation Age of Onset Coronary artery disease Father Family Status - Relation Status Age at Father Level of Service:77297 SC OFFICE/OUTPATIENT ESTABLISHED MOD MDM 30 MIN (GC) Reason for Visit and Comments: Follow-up [553492] Chronic Kidney Disease [176] [facility] Lab Reportson 10-21-2023 Lab Reports [id number] #1.00TIFF [facility] Gastroenterology Office/Clin ic Noteon 10-18-2023 Gastroenterology Office/Clinic [...] fiber supplem (more content not included)... Normal [facility] Comment on above: Result Comment: Elec [...] PM EST With: Nereyda Gomez CNP Where: [facility] Patient Educationon 10-14-20 23 Patient Education [...] as fried or sweet foods. These include chinese fries, hamburgers, cookies, candies, and soda. ? Drink enough fluid to keep your urine pale yellow. General instructions ? Exercise regularly or as told by your health care provider. Try to do 150 minutes of moderate exercise each week. ? Use the bathroom when you have the urge to go. Do not hold it in. ? Take xhzf-owt-cndkjtf and prescription medicines only as told by [...] keep your urine pale yellow. ? Take wozs-cvv-jjyuzdd and prescription medicines only as told by your health care provider. This includes any fiber supplements. This information is not intended to replace advice given to you by your health care provider. Make sure you discuss any questions you have with your health care provider. Document Revised: 09/18/2020 Document Reviewed: 09/18/2020 [email or web address] Patient Education ? 2022 [employer]. [facility] 36on 10-12-2023 36 Patient called to make you aware that he was in [facility] ED on (Wednesday) for SOB. He wanted you to look over his records. 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 His BNP is increased to 4000 and was previously 2600 about 1 month ago. Looks like they gave him extra lasix in the ED and recommended he follow up with Dr. Sung outpatient. Can you please review and let me know if you'd like anything done/ordered? Thanks. [facility] XR Abdomen 2 Viewson 023 XR [...] mGy = . DAP = . [facility] Lab Reportson 10-04-2023 Lab Reports [id number] 1#1.00TIFF [facility] RAD - MISCon 10-04-2023 RAD - MISC [id number] #1.00TIFF [facility] Ambulatory Visit Summaryon 1 12-01-2022 Ambulatory [...] PM EST With: Nereyda Gomez CNP Where: [facility] Invalid Interpretation Code Abdominal cramping [facility] Consent for Treatmenton 09-15 Consent for Treatment [id number] #1.00TIFF [facility] Gastroenterology Office/Clin ic Noteon 10-01-2023 Gastroenterology [...] educated t (more content not included)... [facility] Comment on above: Result Comment: Elec [...] [place] wafer crackers. Meats and other proteins Vanleer beans, kidney beans, and mendez beans. Soybeans. [...] Cream cheese. Sour cream. Fats and oils [place]. Beverages Soft drinks. Other foods Cakes and [...] provider. Document Revised: (more content not included)... [facility] 36on 09-20-2023 36 Called and spoke with and rescheduled appointment and informed her patient would need to get labs done. [facility] 36 Patients called in to reschedule appointment from 09/08 [facility] Office Visiton 09-17-2023 Follow-up visit [id number] KiritNadir 1940 Date Provider Department Center 09/17/2023 CLARIBEL VILLALOBOS [facility] Family History Problem Relation Age of Onset Coronary artery disease Father Family Status - Relation Status Age at Father Level of Service:48202 SC OFFICE/OUTPATIENT ESTABLISHED MOD MDM 30-39 MIN Reason for Visit and Comments: Follow-up [582011] [facility] HPon 08-31-2023 [facility] Cardiology [facility] Subjective Nadir Heredia is a 83 [...] extremity edema. He was admitted to the [facility] in August 2022 due to hyponatremia, hyperkalemia and acute kidney injury, leukocytosis secondary to COVID-19 causing dehydration. I saw him on 05/24/2023 and the office and he had significant evidence of volume overload by exam and echocardiogram. I intensified his diuretic regimen. He ended up getting admitted to the [facility] with acute heart failure exacerbation and [...] Allergies Allergen Reactions Iodinated Contrast Media Nitroglycerin Bepsntn-Ngc-Gwp Reductase Inhibitors Medications Current Outpatient Medications: acyclovir [...] 1 ta (more content not included)... [facility] NURSNOTEon 08-31-2023 NURSNOTE Pt performed and passed bedside swallow study. RN educated pt on d/c instructions. RN encouraged pt to voice any questions or concerns. Pt verbalizes no questions or concerns at this time. Pt was wheeled off of unit with all of belongings. [facility] Telephoneon 08-24-2023 Telephone [id number] Nadir Heredia 1940 M Date Provider Department Center 08/24/2023 RABIA KONG [facility] HeartVAS Family History Problem Relation Age of Onset Coronary artery disease Father Family Status - Relation Status Age at Father [facility] Office Visiton 07-21-2023 Follow-up visit [id number] Nadir Heredia 1940 M Date Provider Department Center 07/21/2023 CLARIBEL VILLALOBOS [facility] Christa [facility] Family History Problem Relation Age of Onset Coronary artery disease Father Family Status - Relation Status Age at Father Level of Service:58790 SC OFFICE/OUTPATIENT ESTABLISHED MOD MDM 30-39 MIN Reason for Visit and Comments: Follow-up [512625] [facility] MICRO OTHER TESTSOrdered By: Francisco Bolanos [...] Albumin [Mass/Vol] 3.3 g/dL Critically low 3.4-5.0 [facility] Comment on above: Performed By: #### M G, BMP, PHOS #### [facility] [address] [address] [address] David Magana GLYCOHEMOGLOBIN A1Con 2022 ADA RECOMMENDATION SEE BELOW Normal [facility] Comment on above: Result Comment: ADA RECOMMENDED LIMIT 4.0 - 6.0 ADA THERAPEUTIC TARGET < 7.0 ACTION SUGGESTED > 7.0 Performed By: #### A 1C #### [facility] [address] [address] [address] David Magana Glucose [Mass/Vol] 108 mg/dL Normal [facility] Comment on above: Performed By: #### A 1C #### [facility] [address] [address] [address] David Magana HbA1c (Bld) [Mass fraction] 5.4 % Normal 4.5-6.2 [facility] Comment on above: Performed By: #### A 1C #### [facility] [address] [place] [address] Dr. David Magana PHOSPHORUSon 03-24-2023 Phosphate [Mass/Vol] 3.6 mg/dL Normal 2.6-4.7 [facility] Comment on above: Performed By: #### M ERICK Faith, PHOS #### [facility] [address] [place] [address] Dr. David Magana PROF CHEM 8 (BAS METB)on Anion gap [Moles/Vol] 11.6 mmol/L Normal [facility] Comment on above: Performed By: #### M ERICK Faith, PHOS #### [facility] [address] [place] [address] Dr. David Magana Calcium [Mass/Vol] 8.9 mg/dL Normal 8.5-10.1 [facility] Comment on above: Performed By: #### M ERICK Faith, PHOS #### [facility] [address] [place] [address] Dr. David Magana Chloride [Moles/Vol] 107 mmol/L Normal 98-107 [facility] Comment on above: Performed By: #### M Marcell BMP, PHOS #### [facility] [address] [place] [address] Dr. David Magana CO2 [Moles/Vol] 30.8 mmol/L Normal 21.0-32.0 [facility] Comment on above: Performed By: #### M Marcell BMP, PHOS #### [facility] [address] [place] [address] Dr. David Magana Creatinine [Mass/Vol] 1.67 mg/dL Critically high 0.70-1.30 [facility] Comment on above: Performed By: #### M G, BMP, PHOS #### [facility] [address] [place] [address] Dr. David Magana EGFR-AF ANDORRAN 48 mL/min/1.73m2 Critically low >=60 [facility] Comment on above: Performed By: #### M G, BMP, PHOS #### [facility] [address] [place] [address] Dr. David Magana EGFR-NON AF ANDORRAN 39 mL/min/1.73m2 Critically low >=60 [facility] Comment on above: Performed By: #### M G, BMP, PHOS #### [facility] [address] [place] [address] Dr. David Magana Glucose [Mass/Vol] 128 mg/dL Critically high 74-106 [facility] Comment on above: Performed By: #### M G, BMP, PHOS #### [facility] [address] [place] [address] Dr. David Magana Potassium [Moles/Vol] 4.4 mmol/L Normal 3.5-5.1 [facility] Comment on above: Performed By: #### M G, BMP, PHOS #### [facility] [address] [place] [address] Dr. David Magana Sodium [Moles/Vol] 145 mmol/L Normal 136-145 [facility] Comment on above: Performed By: #### M G, BMP, PHOS #### [facility] [address] [place] [address] Dr. David Magana Urea nitrogen [Mass/Vol] 25.0 mg/dL Critically high 7.0-18.0 [facility] Comment on above: Performed By: #### M G, BMP, PHOS #### [facility] [address] [place] [address] Dr. David Magana Urea nitrogen/Creatinine [Mass ratio] 15.0 mg/mg Normal [facility] Comment on above: Performed By: #### M G, BMP, PHOS #### [facility] [address] [place] [address] Dr. David Magana VITAMIN D 25 OHon 05-10-2023 VIT D 25-OH 11.6 ng/mL Normal [facility] Comment on above: Performed By: #### C BC #### [facility] [address] [place] [address] Dr. David Magana VIT D RANGES SEE BELOW Normal [facility] Comment on above: Result Comment: <20 ng/mL Vit D deficient 20 - <30 ng/mL Vit D insufficient 30 - 100 ng/mL Vit D sufficient >100 ng/mL Potential Toxicity Performed By: #### C BC #### [facility] [address] [place] [address] Dr. David Magana CBC AUTO DIFFon 02-27-2023 BASO # 0.0 103/ul Normal 0.0-0.1 [facility] Comment on above: Performed By: #### M ERICK Faith, PHOS #### [facility] [address] [place] [address] Dr. David Magana Basophils/100 WBC (Bld) 0.5 % Normal 0.2-2.0 [facility] Comment on above: Performed By: #### M ERICK Faith, PHOS #### [facility] [address] [place] [address] Dr. David Magana EO # 0.7 103/ul Normal 0.0-0.7 [facility] Comment on above: Performed By: #### M ERICK Faith, PHOS #### [facility] [address] [place] [address] Dr. David Magana Eosinophils/100 WBC (Bld) 9.3 % Critically high 0.9-7.0 [facility] Comment on above: Performed By: #### M Marcell BMP, PHOS #### [facility] [address] [place] [address] Dr. David Magana Erythrocyte distribution width (RBC) [Ratio] 14.6 % Normal 11.0-15.0 [facility] Comment on above: Performed By: #### M Marcell, BMP, PHOS #### [facility] [address] [place] [address] Dr. David Magana Hematocrit (Bld) [Volume fraction] 41.5 % Critically low 42.0-54.0 [facility] Comment on above: Performed By: #### ERICK Jacques, PHOS #### [facility] [address] [place] [address] Dr. David Magana Hemoglobin (Bld) [Mass/Vol] 13.9 g/dL Critically low 14.0-18.0 [facility] Comment on above: Performed By: #### ERICK Jacques, PHOS #### [facility] [address] [place] [address] Dr. David Magana IG # 0.02 10e3/ul Normal 0.00-0.03 [facility] Comment on above: Performed By: #### ERICK Jacques, PHOS #### [facility] [address] [place] [address] Dr. David Magana IG % 0.3 % Normal 0.0-0.5 [facility] Comment on above: Performed By: #### ERICK Jacques, PHOS #### [facility] [address] [place] [address] Dr. Davdi aMgana LYMPH # 1.0 103/ul Critically low 1.2-3.8 [facility] Comment on above: Performed By: #### ERICK Jacques, PHOS #### [facility] [address] [place] [address] Dr. David Magana Lymphocytes/100 WBC (Bld) 13.0 % Critically low 20.5-60.0 [facility] Comment on above: Performed By: #### ERICK Jacques, PHOS #### [facility] [address] [place] [address] Dr. David Magana MANUAL DIFF REQ NO Normal [facility] Comment on above: Performed By: #### ERICK Jacques, PHOS #### [facility] [address] [place] [address] Dr. Daivd Magana MCH (RBC) [Entitic mass] 33.5 pg Normal 25.9-34.0 [facility] Comment on above: Performed By: #### M G, BMP, PHOS #### [facility] [address] [place] [address] Dr. David Magana MCHC (RBC) [Mass/Vol] 33.5 g/dL Normal 29.9-35.2 [facility] Comment on above: Performed By: #### M G, BMP, PHOS #### [facility] [address] [place] [address] Dr. David Magana MCV (RBC) [Entitic vol] 100.0 fL Critically high 80.0-94.0 [facility] Comment on above: Performed By: #### M G, BMP, PHOS #### [facility] [address] [place] [address] Dr. David Magana MONO # 0.8 103/ul Normal 0.3-0.8 [facility] Comment on above: Performed By: #### M G, BMP, PHOS #### [facility] [address] [place] [address] Dr. David Magana Monocytes/100 WBC (Bld) 10.1 % Normal 1.7-12.0 [facility] Comment on above: Performed By: #### M G, BMP, PHOS #### [facility] [address] [place] [address] Dr. David Magana NEUT # 5.0 103/ul Normal 1.4-6.5 [facility] Comment on above: Performed By: #### M G, BMP, PHOS #### [facility] [address] [place] [address] Dr. David Magana Neutrophils/100 WBC (Bld) 66.8 % Normal 43.0-75.0 [facility] Comment on above: Performed By: #### M G, BMP, PHOS #### [facility] [address] [place] [address] Dr. David Magana Platelet mean volume (Bld) [Entitic vol] 11.2 fL Normal 9.5-13.5 [facility] Comment on above: Performed By: #### M G, BMP, PHOS #### [facility] [address] [place] [address] Dr. David Magana PLT 187 103/ul Normal 150-450 [facility] Comment on above: Performed By: #### M ERICK Faith, PHOS #### [facility] [address] [place] [address] Dr. David Magana RBC 4.15 106/ul Critically low 4.70-6.10 [facility] Comment on above: Performed By: #### ERICK Jacques PHOS #### [facility] [address] [place] [address] Dr. David Magana WBC 7.5 103/ul Normal 4.0-11.0 [facility] Comment on above: Performed By: #### ERICK Jacques PHOS #### [facility] [address] [place] [address] Dr. David Magana PROF 14(COMP METB)on 023 Albumin [Mass/Vol] 3.5 g/dL Normal 3.4-5.0 [facility] Comment on above: Performed By: #### A 1C #### [facility] [address] [place] [address] Dr. David Magana Albumin/Globulin [Mass ratio] 1.1 {ratio} Normal [facility] Comment on above: Performed By: #### A 1C #### [facility] [address] [place] [address] Dr. David Magana ALP [Catalytic activity/Vol] 76 U/L Normal 46-116 [facility] Comment on above: Performed By: #### A 1C #### [facility] [address] [place] [address] Dr. David Magana ALT [Catalytic activity/Vol] 23 U/L Normal 16-63 [facility] Comment on above: Performed By: #### A 1C #### [facility] [address] [place] [address] Dr. David Magana Anion gap [Moles/Vol] 13.1 mmol/L Normal [facility] Comment on above: Performed By: #### A 1C #### [facility] [address] [place] [address] Dr. David Magana AST [Catalytic activity/Vol] 17 U/L Normal 15-37 [facility] Comment on above: Performed By: #### A 1C #### [facility] [address] [place] [address] Dr. David Magana Bilirubin [Mass/Vol] 0.7 mg/dL Normal 0.2-1.0 [facility] Comment on above: Performed By: #### A 1C #### [facility] [address] [address] [address] David Magaan Calcium [Mass/Vol] 9.0 mg/dL Normal 8.5-10.1 [facility] Comment on above: Performed By: #### A 1C #### [facility] [address] [place] [address] Dr. David Magana Chloride [Moles/Vol] 105 mmol/L Normal 98-107 [facility] Comment on above: Performed By: #### A 1C #### [facility] [address] [place] [address] Dr. David Magana CO2 [Moles/Vol] 29.0 mmol/L Normal 21.0-32.0 [facility] Comment on above: Performed By: #### A 1C #### [facility] [address] [place] [address] Dr. David Magana Creatinine [Mass/Vol] 1.77 mg/dL Critically high 0.70-1.30 [facility] Comment on above: Performed By: #### A 1C #### [facility] [address] [place] [address] Dr. David Magana EGFR-AF ANDORRAN 45 mL/min/1.73m2 Critically low >=60 [facility] Comment on above: Performed By: #### A 1C #### [facility] [address] [place] [address] Dr. David Magana EGFR-NON AF ANDORRAN 37 mL/min/1.73m2 Critically low >=60 [facility] Comment on above: Performed By: #### A 1C #### [facility] [address] [place] [address] Dr. David Magana Globulin (S) [Mass/Vol] 3.3 g/dL Normal [facility] Comment on above: Performed By: #### A 1C #### [facility] [address] [address] [address] David Magana Glucose [Mass/Vol] 135 mg/dL Critically high 74-106 [facility] Comment on above: Performed By: #### A 1C #### [facility] [address] [address] [address] David Magana Potassium [Moles/Vol] 4.1 mmol/L Normal 3.5-5.1 [facility] Comment on above: Performed By: #### A 1C #### [facility] [address] [address] [address] David Magana Protein [Mass/Vol] 6.8 g/dL Normal 6.4-8.2 [facility] Comment on above: Performed By: #### A 1C #### [facility] [address] [address] [address] David Magana Sodium [Moles/Vol] 143 mmol/L Normal 136-145 [facility] Comment on above: Performed By: #### A 1C #### [facility] [address] [address] [address] David Magana Urea nitrogen [Mass/Vol] 31.0 mg/dL Critically high 7.0-18.0 [facility] Comment on above: Performed By: #### A 1C #### [facility] [address] [address] [address] David Magana Urea nitrogen/Creatinine [Mass ratio] 17.5 mg/mg Normal [facility] Comment on above: Performed By: #### A 1C #### [facility] [address] [address] [address] David Magana PROTIMEon 02-27-2023 INR Coag (PPP) [Relative time] 0.99 {INR} Normal [facility] Comment on above: Performed By: #### A 1C #### [facility] [address] [place] [address] Dr. David Magana INR GUIDELINES SEE BELOW Normal [facility] Comment on above: Result Comment: IDANIA RED INR: 2.0 - 3.0 CONDITIONS NOT LISTED BELOW 2.5 - 3.5 FOR PROSTHETIC HEART VALVE REPLACEMENT 2.5 - 3.5 RECURRENT THROMBOSIS Performed By: #### A 1C #### [facility] [address] [place] [address] Dr. David Magana PT Coag (PPP) [Time] 10.5 s Normal 9.0-11.6 [facility] Comment on above: Performed By: #### A 1C #### [facility] [address] [place] [address] Dr. David Magana PTTon 02-27-2023 aPTT Coag (Bld) [Time] 33.0 s Normal 22.3-36.2 [facility] Comment on above: Performed By: #### P OCGLUC #### [facility] [address] [place] [address] Dr. David Magana ALBUMINon 12-28-2022 Albumin [Mass/Vol] 3.6 g/dL Normal 3.4-5.0 [facility] Comment on above: Performed By: #### C BC #### [facility] [address] [place] [address] Dr. David Magana GLYCOHEMOGLOBIN A1Con 2022 ADA RECOMMENDATION SEE BELOW Normal [facility] Comment on above: Result Comment: ADA RECOMMENDED LIMIT 4.0 - 6.0 ADA THERAPEUTIC TARGET < 7.0 ACTION SUGGESTED > 7.0 Performed By: #### P OCGLUC #### [facility] [address] [place] [address] Dr. David Magana Glucose [Mass/Vol] 140 mg/dL Normal [facility] Comment on above: Performed By: #### P OCGLUC #### [facility] [address] [place] [address] Dr. David Magana HbA1c (Bld) [Mass fraction] 6.5 % Critically high 4.5-6.2 [facility] Comment on above: Performed By: #### P OCGLUC #### [facility] [address] [place] [address] Dr. David Magana MAGNESIUMon 12-28-2022 Magnesium [Mass/Vol] 2.3 mg/dL Normal 1.8-2.4 [facility] Comment on above: Performed By: #### P OCGLUC #### [facility] [address] [address] [address] David Magana PROF CHEM 8 (BAS METB)on Anion gap [Moles/Vol] 13.2 mmol/L Normal [facility] Comment on above: Performed By: #### P OCGLUC #### [facility] [address] [address] [address] David Magana Calcium [Mass/Vol] 9.0 mg/dL Normal 8.5-10.1 [facility] Comment on above: Performed By: #### P OCGLUC #### [facility] [address] [address] [address] David Magana Chloride [Moles/Vol] 105 mmol/L Normal 98-107 [facility] Comment on above: Performed By: #### P OCGLUC #### [facility] [address] [address] [address] David Magana CO2 [Moles/Vol] 28.9 mmol/L Normal 21.0-32.0 [facility] Comment on above: Performed By: #### P OCGLUC #### [facility] [address] [address] [address] David Magana Creatinine [Mass/Vol] 1.66 mg/dL Critically high 0.70-1.30 [facility] Comment on above: Performed By: #### P OCGLUC #### [facility] [address] [address] [address] David Magana EGFR-AF ANDORRAN 48 mL/min/1.73m2 Critically low >=60 [facility] Comment on above: Performed By: #### P OCGLUC #### [facility] [address] [address] [address] David Magana EGFR-NON AF ANDORRAN 40 mL/min/1.73m2 Critically low >=60 [facility] Comment on above: Performed By: #### P OCGLUC #### [facility] [address] [address] [address] David Magana Glucose [Mass/Vol] 123 mg/dL Critically high 74-106 [facility] Comment on above: Performed By: #### P OCGLUC #### [facility] [address] [address] [address] David Magana Potassium [Moles/Vol] 4.1 mmol/L Normal 3.5-5.1 [facility] Comment on above: Performed By: #### P OCGLUC #### [facility] [address] [address] [address] David Magana Sodium [Moles/Vol] 143 mmol/L Normal 136-145 [facility] Comment on above: Performed By: #### P OCGLUC #### [facility] [address] [address] [address] David Magana Urea nitrogen [Mass/Vol] 29.0 mg/dL Critically high 7.0-18.0 [facility] Comment on above: Performed By: #### P OCGLUC #### [facility] [address] [address] [address] David Magana Urea nitrogen/Creatinine [Mass ratio] 17.5 mg/mg Normal [facility] Comment on above: Performed By: #### P OCGLUC #### [facility] [address] [address] [address] David Magana URINE T PROTEIN CREAT RATIOo n 12-28-2022 UR TOTAL PROTEIN <6.0 Normal <=12.0 [facility] Comment on above: Performed By: #### M ERICK Faith, PHOS #### [facility] [address] [address] [address] David Magana URINE CREAT 41.21 mg/dL Normal 20.00-300.00 [facility] Comment on above: Performed By: #### M Marcell BMP, PHOS #### [facility] [address] [address] [address] David Magana ALBUMINon 11-16-2022 Albumin [Mass/Vol] 3.3 g/dL Critically low 3.4-5.0 [facility] Comment on above: Performed By: #### C BC #### [facility] [address] [place] [address] Dr. David Magana CREATININE URINEon URINE CREAT 19.69 mg/dL Critically low 20.00-300.00 [facility] Comment on above: Performed By: #### M ERICK Faith, PHOS #### [facility] [address] [place] [address] Dr. David Magana HEMOGLOBINon 11-16-2022 Hemoglobin (Bld) [Mass/Vol] 14.9 g/dL Normal 14.0-18.0 [facility] Comment on above: Performed By: #### M ERICK Faith, PHOS #### [facility] [address] [place] [address] Dr. David Magana MAGNESIUMon 11-16-2022 Magnesium [Mass/Vol] 2.2 mg/dL Normal 1.8-2.4 [facility] Comment on above: Performed By: #### C BC #### [facility] [address] [place] [address] Dr. David Magana PHOSPHORUSon 11-16-2022 Phosphate [Mass/Vol] 3.9 mg/dL Normal 2.6-4.7 [facility] Comment on above: Performed By: #### C BC #### [facility] [address] [place] [address] Dr. David Magana PROF CHEM 8 (BAS METB)on Anion gap [Moles/Vol] 11.9 mmol/L Normal [facility] Comment on above: Performed By: #### C BC #### [facility] [address] [place] [address] Dr. David Magana Calcium [Mass/Vol] 8.8 mg/dL Normal 8.5-10.[address] [facility] Comment on above: Performed By: #### C BC #### [facility] [address] [place] [address] Dr. David Magana Chloride [Moles/Vol] 104 mmol/L Normal 98-107 [facility] Comment on above: Performed By: #### C BC #### [facility] [address] [address] [address] David Magana CO2 [Moles/Vol] 27.4 mmol/L Normal 21.0-32.0 [facility] Comment on above: Performed By: #### C BC #### [facility] [address] [address] [address] David Magana Creatinine [Mass/Vol] 1.68 mg/dL Critically high 0.70-1.30 [facility] Comment on above: Performed By: #### C BC #### [facility] [address] [address] [address] David Magana EGFR-AF ANDORRAN 48 mL/min/1.73m2 Critically low >=60 [facility] Comment on above: Performed By: #### C BC #### [facility] [address] [address] [address] David Magana EGFR-NON AF ANDORRAN 39 mL/min/1.73m2 Critically low >=60 [facility] Comment on above: Performed By: #### C BC #### [facility] [address] [address] [address] David Magana Glucose [Mass/Vol] 212 mg/dL Critically high 74-106 [facility] Comment on above: Performed By: #### C BC #### [facility] [address] [address] [address] David Magana Potassium [Moles/Vol] 4.3 mmol/L Normal 3.5-5.1 [facility] Comment on above: Performed By: #### C BC #### [facility] [address] [address] [address] David Magana Sodium [Moles/Vol] 139 mmol/L Normal 136-145 [facility] Comment on above: Performed By: #### C BC #### [facility] [address] [address] [address] David Magana Urea nitrogen [Mass/Vol] 25.0 mg/dL Critically high 7.0-18.0 [facility] Comment on above: Performed By: #### C BC #### [facility] [address] [address] [address] David Magana Urea nitrogen/Creatinine [Mass ratio] 14.9 mg/mg Normal [facility] Comment on above: Performed By: #### C BC #### [facility] [address] [place] [address] Dr. David Magana PROTEIN RAND URINEon 023 UR PROT <5.0 Normal <=11.9 [facility] Comment on above: Performed By: #### M ERICK Faith PHOS #### [facility] [address] [place] [address] Dr. David Magana US CHANI DOP LEG [...] CLOVER PEREZ Date: 2022-11-02 16:21 Normal [facility] BNPon 07-22-2022 Natriuretic peptide B (Bld) [Mass/Vol] 2143.0 pg/mL Critically high <=1,800.0 [facility] Comment on above: Performed By: #### ERICK Jacques PHOS #### [facility] [address] [place] [address] Dr. David Magana CBC AUTO DIFFon 07-22-2022 BASO # 0.0 103/ul Normal 0.0-0.1 [facility] Comment on above: Performed By: #### A 1C #### [facility] [address] [place] [address] Dr. David Magana Basophils/100 WBC (Bld) 0.3 % Normal 0.2-2.0 [facility] Comment on above: Performed By: #### A 1C #### [facility] [address] [address] [address] David Magana EO # 0.3 103/ul Normal 0.0-0.7 [facility] Comment on above: Performed By: #### A 1C #### [facility] [address] [place] [address] Dr. David Magana Eosinophils/100 WBC (Bld) 2.4 % Normal 0.9-7.0 [facility] Comment on above: Performed By: #### A 1C #### [facility] [address] [place] [address] Dr. David Magana Erythrocyte distribution width (RBC) [Ratio] 13.4 % Normal 11.0-15.0 [facility] Comment on above: Performed By: #### A 1C #### [facility] [address] [place] [address] Dr. David Magana Hematocrit (Bld) [Volume fraction] 42.7 % Normal 42.0-54.0 [facility] Comment on above: Performed By: #### A 1C #### [facility] [address] [place] [address] Dr. David Magana Hemoglobin (Bld) [Mass/Vol] 14.2 g/dL Normal 14.0-18.0 [facility] Comment on above: Performed By: #### A 1C #### [facility] [address] [place] [address] Dr. David Magana IG # 0.18 10e3/ul Critically high 0.00-0.03 [facility] Comment on above: Performed By: #### A 1C #### [facility] [address] [place] [address] Dr. David Magana IG % 1.6 % Critically high 0.0-0.[address] [facility] Comment on above: Performed By: #### A 1C #### [facility] [address] [place] [address] Dr. David Magana LYMPH # 0.9 103/ul Critically low 1.2-3.8 [facility] Comment on above: Performed By: #### A 1C #### [facility] [address] [address] [address] David Magana Lymphocytes/100 WBC (Bld) 8.1 % Critically low 20.5-60.0 [facility] Comment on above: Performed By: #### A 1C #### [facility] [address] [place] [address] Dr. David Magana MANUAL DIFF REQ NO Normal [facility] Comment on above: Performed By: #### A 1C #### [facility] [address] [address] [address] David Magana MCH (RBC) [Entitic mass] 33.3 pg Normal 25.9-34.0 [facility] Comment on above: Performed By: #### A 1C #### [facility] [address] [place] [address] Dr. David Magana MCHC (RBC) [Mass/Vol] 33.3 g/dL Normal 29.9-35.2 [facility] Comment on above: Performed By: #### A 1C #### [facility] [address] [place] [address] Dr. David Magana MCV (RBC) [Entitic vol] 100.2 fL Critically high 80.0-94.0 [facility] Comment on above: Performed By: #### A 1C #### [facility] [address] [place] [address] Dr. David Magana MONO # 1.2 103/ul Critically high 0.3-0.[address] [facility] Comment on above: Performed By: #### A 1C #### [facility] [address] [place] [address] Dr. David Magana Monocytes/100 WBC (Bld) 10.5 % Normal 1.7-12.0 [facility] Comment on above: Performed By: #### A 1C #### [facility] [address] [place] [address] Dr. David Magana NEUT # 8.9 103/ul Critically high 1.4-6.[address] [facility] Comment on above: Performed By: #### A 1C #### [facility] [address] [address] [address] David Magana Neutrophils/100 WBC (Bld) 77.1 % Critically high 43.0-75.0 [facility] Comment on above: Performed By: #### A 1C #### [facility] [address] [place] [address] Dr. David Magana Platelet mean volume (Bld) [Entitic vol] 11.3 fL Normal 9.5-13.5 [facility] Comment on above: Performed By: #### A 1C #### [facility] [address] [address] [address] David Magana PLT 175 103/ul Normal 150-450 [facility] Comment on above: Performed By: #### A 1C #### [facility] [address] [place] [address] Dr. David Magana RBC 4.26 106/ul Critically low 4.70-6.10 [facility] Comment on above: Performed By: #### A 1C #### [facility] [address] [place] [address] Dr. David Magana WBC 11.5 103/ul Critically high 4.0-11.0 [facility] Comment on above: Performed By: #### A 1C #### [facility] [address] [place] [address] Dr. David Magana PROF 14(COMP METB)on 022 Albumin [Mass/Vol] 2.6 g/dL Critically low 3.4-5.0 [facility] Comment on above: Performed By: #### M ERICK Faith, PHOS #### [facility] [address] [place] [address] Dr. David Magana Albumin/Globulin [Mass ratio] 0.9 {ratio} Normal [facility] Comment on above: Performed By: #### ERICK Jacques, PHOS #### [facility] [address] [place] [address] Dr. David Magana ALP [Catalytic activity/Vol] 49 U/L Normal 46-116 [facility] Comment on above: Performed By: #### M G, BMP, PHOS #### [facility] [address] [address] [address] David Magana ALT [Catalytic activity/Vol] 25 U/L Normal 16-63 [facility] Comment on above: Performed By: #### M G, BMP, PHOS #### [facility] [address] [address] [address] David Magana Anion gap [Moles/Vol] 12.8 mmol/L Normal [facility] Comment on above: Performed By: #### M G, BMP, PHOS #### [facility] [address] [address] [address] David Magana AST [Catalytic activity/Vol] 9 U/L Critically low 15-37 [facility] Comment on above: Performed By: #### M G, BMP, PHOS #### [facility] [address] [place] [address] Dr. David Magana Bilirubin [Mass/Vol] 0.5 mg/dL Normal 0.2-1.0 [facility] Comment on above: Performed By: #### M G, BMP, PHOS #### [facility] [address] [address] [address] David Magana Calcium [Mass/Vol] 8.3 mg/dL Critically low 8.5-10.1 [facility] Comment on above: Performed By: #### M G, BMP, PHOS #### [facility] [address] [address] [address] David Magana Chloride [Moles/Vol] 105 mmol/L Normal 98-107 [facility] Comment on above: Performed By: #### M G, BMP, PHOS #### [facility] [address] [address] [address] David Magana CO2 [Moles/Vol] 24.2 mmol/L Normal 21.0-32.0 [facility] Comment on above: Performed By: #### M G, BMP, PHOS #### [facility] [address] [address] [address] David Magana Creatinine [Mass/Vol] 1.28 mg/dL Normal 0.70-1.30 [facility] Comment on above: Performed By: #### M G, BMP, PHOS #### [facility] [address] [place] [address] Dr. David Magana EGFR-AF ANDORRAN >60 Normal >=60 [facility] Comment on above: Performed By: #### M G, BMP, PHOS #### [facility] [address] [place] [address] Dr. David Magana EGFR-NON AF ANDORRAN 54 mL/min/1.73m2 Critically low >=60 [facility] Comment on above: Performed By: #### M G, BMP, PHOS #### [facility] [address] [place] [address] Dr. David Magana Globulin (S) [Mass/Vol] 2.9 g/dL Normal [facility] Comment on above: Performed By: #### M Marcell, BMP, PHOS #### [facility] [address] [place] [address] Dr. David Magana Glucose [Mass/Vol] 205 mg/dL Critically high 74-106 [facility] Comment on above: Performed By: #### M Marcell BMP, PHOS #### [facility] [address] [place] [address] Dr. David Magana Potassium [Moles/Vol] 4.0 mmol/L Normal 3.5-5.1 [facility] Comment on above: Performed By: #### M G, BMP, PHOS #### [facility] [address] [place] [address] Dr. David Magana Protein [Mass/Vol] 5.5 g/dL Critically low 6.4-8.2 [facility] Comment on above: Performed By: #### M G, BMP, PHOS #### [facility] [address] [place] [address] Dr. David Magana Sodium [Moles/Vol] 138 mmol/L Normal 136-145 [facility] Comment on above: Performed By: #### M G, BMP, PHOS #### [facility] [address] [place] [address] Dr. David Magana Urea nitrogen [Mass/Vol] 36.0 mg/dL Critically high 7.0-18.0 [facility] Comment on above: Performed By: #### M ERICK Faith PHOS #### [facility] [address] [place] [address] Dr. David Magana Urea nitrogen/Creatinine [Mass ratio] 28.1 mg/mg Normal [facility] Comment on above: Performed By: #### ERICK Jacques PHOS #### [facility] [address] [place] [address] Dr. David Magana BNPon 07-21-2022 Natriuretic peptide B (Bld) [Mass/Vol] 3485.0 pg/mL Critically high <=1,800.0 [facility] Comment on above: Result Comment: repe ated Performed By: #### A 1C #### [facility] [address] [place] [address] Dr. David Magana CBC AUTO DIFFon 07-21-2022 BASO # 0.0 103/ul Normal 0.0-0.1 [facility] Comment on above: Performed By: #### C BC #### [facility] [address] [place] [address] Dr. David Magana Basophils/100 WBC (Bld) 0.3 % Normal 0.2-2.0 [facility] Comment on above: Performed By: #### C BC #### [facility] [address] [place] [address] Dr. David Magana EO # 0.2 103/ul Normal 0.0-0.7 [facility] Comment on above: Performed By: #### C BC #### [facility] [address] [place] [address] Dr. David Magana Eosinophils/100 WBC (Bld) 1.9 % Normal 0.9-7.0 [facility] Comment on above: Performed By: #### C BC #### [facility] [address] [place] [address] Dr. David Magana Erythrocyte distribution width (RBC) [Ratio] 13.4 % Normal 11.0-15.0 [facility] Comment on above: Performed By: #### C BC #### [facility] [address] [place] [address] Dr. David Magana Hematocrit (Bld) [Volume fraction] 42.5 % Normal 42.0-54.0 [facility] Comment on above: Performed By: #### C BC #### [facility] [address] [place] [address] Dr. David Magana Hemoglobin (Bld) [Mass/Vol] 14.2 g/dL Normal 14.0-18.0 [facility] Comment on above: Performed By: #### C BC #### [facility] [address] [place] [address] Dr. David Magana IG # 0.22 10e3/ul Critically high 0.00-0.03 [facility] Comment on above: Performed By: #### C BC #### [facility] [address] [place] [address] Dr. David Magana IG % 2.1 % Critically high 0.0-0.5 [facility] Comment on above: Performed By: #### C BC #### [facility] [address] [place] [address] Dr. David Magana LYMPH # 0.8 103/ul Critically low 1.2-3.8 [facility] Comment on above: Performed By: #### C BC #### [facility] [address] [place] [address] Dr. David Magana Lymphocytes/100 WBC (Bld) 7.7 % Critically low 20.5-60.0 [facility] Comment on above: Performed By: #### C BC #### [facility] [address] [place] [address] Dr. David Magana MANUAL DIFF REQ NO Normal [facility] Comment on above: Performed By: #### C BC #### [facility] [address] [place] [address] Dr. David Magana MCH (RBC) [Entitic mass] 33.0 pg Normal 25.9-34.0 [facility] Comment on above: Performed By: #### C BC #### [facility] [address] [address] [address] David Magana MCHC (RBC) [Mass/Vol] 33.4 g/dL Normal 29.9-35.2 [facility] Comment on above: Performed By: #### C BC #### [facility] [address] [address] [address] David Magana MCV (RBC) [Entitic vol] 98.8 fL Critically high 80.0-94.0 [facility] Comment on above: Performed By: #### C BC #### [facility] [address] [address] [address] David Magana MONO # 1.0 103/ul Critically high 0.3-0.8 [facility] Comment on above: Performed By: #### C BC #### [facility] [address] [address] [address] David Magana Monocytes/100 WBC (Bld) 9.7 % Normal 1.7-12.0 [facility] Comment on above: Performed By: #### C BC #### [facility] [address] [address] [address] David Magana NEUT # 8.1 103/ul Critically high 1.4-6.5 [facility] Comment on above: Performed By: #### C BC #### [facility] [address] [address] [address] David Magana Neutrophils/100 WBC (Bld) 78.3 % Critically high 43.0-75.0 [facility] Comment on above: Performed By: #### C BC #### [facility] [address] [address] [address] David Magana Platelet mean volume (Bld) [Entitic vol] 10.7 fL Normal 9.5-13.5 [facility] Comment on above: Performed By: #### C BC #### [facility] [address] [address] [address] David Magana PLT 177 103/ul Normal 150-450 [facility] Comment on above: Performed By: #### C BC #### [facility] [address] [address] [address] David Magana RBC 4.30 106/ul Critically low 4.70-6.10 [facility] Comment on above: Performed By: #### C BC #### [facility] [address] [place] [address] Dr. David Magana WBC 10.4 103/ul Normal 4.0-11.0 [facility] Comment on above: Performed By: #### C BC #### [facility] [address] [place] [address] Dr. David Magana PROF 14(COMP METB)on 022 Albumin [Mass/Vol] 2.6 g/dL Critically low 3.4-5.0 [facility] Comment on above: Performed By: #### A 1C #### [facility] [address] [place] [address] Dr. David Magana Albumin/Globulin [Mass ratio] 1.0 {ratio} Normal [facility] Comment on above: Performed By: #### A 1C #### [facility] [address] [place] [address] Dr. David Magana ALP [Catalytic activity/Vol] 50 U/L Normal 46-116 [facility] Comment on above: Performed By: #### A 1C #### [facility] [address] [place] [address] Dr. David Magana ALT [Catalytic activity/Vol] 28 U/L Normal 16-63 [facility] Comment on above: Performed By: #### A 1C #### [facility] [address] [place] [address] Dr. David Magnaa Anion gap [Moles/Vol] 11.4 mmol/L Normal [facility] Comment on above: Performed By: #### A 1C #### [facility] [address] [place] [address] Dr. David Magana AST [Catalytic activity/Vol] 13 U/L Critically low 15-37 [facility] Comment on above: Performed By: #### A 1C #### [facility] [address] [address] [address] David Magana Bilirubin [Mass/Vol] 0.4 mg/dL Normal 0.2-1.0 [facility] Comment on above: Performed By: #### A 1C #### [facility] [address] [address] [address] David Magana Calcium [Mass/Vol] 8.4 mg/dL Critically low 8.5-10.1 [facility] Comment on above: Performed By: #### A 1C #### [facility] [address] [address] [address] David Magana Chloride [Moles/Vol] 107 mmol/L Normal 98-107 [facility] Comment on above: Performed By: #### A 1C #### [facility] [address] [place] [address] Dr. David Magana CO2 [Moles/Vol] 24.6 mmol/L Normal 21.0-32.0 [facility] Comment on above: Performed By: #### A 1C #### [facility] [address] [place] [address] Dr. David Magana Creatinine [Mass/Vol] 1.26 mg/dL Normal 0.70-1.30 [facility] Comment on above: Performed By: #### A 1C #### [facility] [address] [place] [address] Dr. David Magana EGFR-AF ANDORRAN >60 Normal >=60 [facility] Comment on above: Performed By: #### A 1C #### [facility] [address] [place] [address] Dr. David Magana EGFR-NON AF ANDORRAN 55 mL/min/1.73m2 Critically low >=60 [facility] Comment on above: Performed By: #### A 1C #### [facility] [address] [place] [address] Dr. David Magana Globulin (S) [Mass/Vol] 2.7 g/dL Normal [facility] Comment on above: Performed By: #### A 1C #### [facility] [address] [address] [address] David Magana Glucose [Mass/Vol] 203 mg/dL Critically high 74-106 [facility] Comment on above: Performed By: #### A 1C #### [facility] [address] [place] [address] Dr. David Magana Potassium [Moles/Vol] 4.0 mmol/L Normal 3.5-5.1 [facility] Comment on above: Performed By: #### A 1C #### [facility] [address] [place] [address] Dr. David Magana Protein [Mass/Vol] 5.3 g/dL Critically low 6.4-8.2 [facility] Comment on above: Performed By: #### A 1C #### [facility] [address] [place] [address] Dr. David Magana Sodium [Moles/Vol] 139 mmol/L Normal 136-145 [facility] Comment on above: Performed By: #### A 1C #### [facility] [address] [place] [address] Dr. David Magana Urea nitrogen [Mass/Vol] 33.0 mg/dL Critically high 7.0-18.0 [facility] Comment on above: Performed By: #### A 1C #### [facility] [address] [place] [address] Dr. David Magana Urea nitrogen/Creatinine [Mass ratio] 26.2 mg/mg Normal [facility] Comment on above: Performed By: #### A 1C #### [facility] [address] [place] [address] Dr. David Magana BNPon 07-20-2022 Natriuretic peptide B (Bld) [Mass/Vol] 7478.0 pg/mL Critically high <=1,800.0 [facility] Comment on above: Performed By: #### A 1C #### [facility] [address] [place] [address] Dr. David Magana CBC AUTO DIFFon 07-20-2022 BASO # 0.1 103/ul Normal 0.0-0.1 [facility] Comment on above: Performed By: #### M Marcell BMP, PHOS #### [facility] [address] [place] [address] Dr. David Magana Basophils/100 WBC (Bld) 0.8 % Normal 0.2-2.0 [facility] Comment on above: Performed By: #### M G, BMP, PHOS #### [facility] [address] [place] [address] Dr. David Magana EO # 0.1 103/ul Normal 0.0-0.7 [facility] Comment on above: Performed By: #### M G, BMP, PHOS #### [facility] [address] [place] [address] Dr. David Magana Eosinophils/100 WBC (Bld) 0.6 % Critically low 0.9-7.0 [facility] Comment on above: Performed By: #### M EIRCK Faith, PHOS #### [facility] [address] [place] [address] Dr. David Magana Erythrocyte distribution width (RBC) [Ratio] 13.4 % Normal 11.0-15.0 [facility] Comment on above: Performed By: #### M ERICK Faith, PHOS #### [facility] [address] [place] [address] Dr. David Magana Hematocrit (Bld) [Volume fraction] 43.2 % Normal 42.0-54.0 [facility] Comment on above: Performed By: #### M ERICK Faith, PHOS #### [facility] [address] [place] [address] Dr. David Magana Hemoglobin (Bld) [Mass/Vol] 14.2 g/dL Normal 14.0-18.0 [facility] Comment on above: Performed By: #### M ERCIK Faith, PHOS #### [facility] [address] [place] [address] Dr. David Magana IG # 0.21 10e3/ul Critically high 0.00-0.03 [facility] Comment on above: Performed By: #### M ERICK Faith, PHOS #### [facility] [address] [place] [address] Dr. David Magana IG % 2.0 % Critically high 0.0-0.[address] [facility] Comment on above: Performed By: #### M ERICK Faith, PHOS #### [facility] [address] [place] [address] Dr. David Magana LYMPH # 0.8 103/ul Critically low 1.2-3.8 [facility] Comment on above: Performed By: #### M ERICK Faith, PHOS #### [facility] [address] [place] [address] Dr. David Magana Lymphocytes/100 WBC (Bld) 7.7 % Critically low 20.5-60.0 [facility] Comment on above: Performed By: #### M ERICK Faith, PHOS #### [facility] [address] [place] [address] Dr. David Magana MANUAL DIFF REQ NO Normal [facility] Comment on above: Performed By: #### M ERICK Faith, PHOS #### [facility] [address] [place] [address] Dr. David Magana MCH (RBC) [Entitic mass] 33.2 pg Normal 25.9-34.0 [facility] Comment on above: Performed By: #### M ERICK Faith, PHOS #### [facility] [address] [place] [address] Dr. David Magana MCHC (RBC) [Mass/Vol] 32.9 g/dL Normal 29.9-35.2 [facility] Comment on above: Performed By: #### M ERICK Faith, PHOS #### [facility] [address] [place] [address] Dr. David Magana MCV (RBC) [Entitic vol] 100.9 fL Critically high 80.0-94.0 [facility] Comment on above: Performed By: #### M ERICK Faith, PHOS #### [facility] [address] [place] [address] Dr. David Magana MONO # 1.0 103/ul Critically high 0.3-0.[address] [facility] Comment on above: Performed By: #### M Marcell BMP, PHOS #### [facility] [address] [address] [address] David Magana Monocytes/100 WBC (Bld) 10.0 % Normal 1.7-12.0 [facility] Comment on above: Performed By: #### M G, BMP, PHOS #### [facility] [address] [place] [address] Dr. David Magana NEUT # 8.1 103/ul Critically high 1.4-6.[address] [facility] Comment on above: Performed By: #### M Marcell BMP, PHOS #### [facility] [address] [place] [address] Dr. David Magana Neutrophils/100 WBC (Bld) 78.9 % Critically high 43.0-75.0 [facility] Comment on above: Performed By: #### ERICK Jacques, PHOS #### [facility] [address] [place] [address] Dr. David Magana Platelet mean volume (Bld) [Entitic vol] 10.8 fL Normal 9.5-13.5 [facility] Comment on above: Performed By: #### Jim Faith BMP, PHOS #### [facility] [address] [place] [address] Dr. David Magana PLT 172 103/ul Normal 150-450 [facility] Comment on above: Performed By: #### M Marcell BMP, PHOS #### [facility] [address] [place] [address] Dr. David Magana RBC 4.28 106/ul Critically low 4.70-6.[address] [facility] Comment on above: Performed By: #### M Marcell BMP, PHOS #### [facility] [address] [place] [address] Dr. Davdi Magana WBC 10.3 103/ul Normal 4.0-11.0 [facility] Comment on above: Performed By: #### M Marcell BMP, PHOS #### [facility] [address] [place] [address] Dr. David Magana CULTURE URINEon 07-20-2022 CULTURE [...] F Trimethoprim/Sulfame thoxazole >=320 R F Normal [facility] Comment on above: Performed By: #### M ERICK Faith PHOS #### [facility] [address] [place] [address] Dr. David Magana PROF 14(COMP METB)on 022 Albumin [Mass/Vol] 2.6 g/dL Critically low 3.4-5.0 [facility] Comment on above: Performed By: #### A 1C #### [facility] [address] [place] [address] Dr. David Magana Albumin/Globulin [Mass ratio] 0.9 {ratio} Normal [facility] Comment on above: Performed By: #### A 1C #### [facility] [address] [place] [address] Dr. David Magana ALP [Catalytic activity/Vol] 48 U/L Normal 46-116 [facility] Comment on above: Performed By: #### A 1C #### [facility] [address] [place] [address] Dr. David Magana ALT [Catalytic activity/Vol] 27 U/L Normal 16-63 [facility] Comment on above: Performed By: #### A 1C #### [facility] [address] [place] [address] Dr. David Magana Anion gap [Moles/Vol] 13.4 mmol/L Normal [facility] Comment on above: Performed By: #### A 1C #### [facility] [address] [address] [address] David Magana AST [Catalytic activity/Vol] 22 U/L Normal 15-37 [facility] Comment on above: Performed By: #### A 1C #### [facility] [address] [address] [address] David Magana Bilirubin [Mass/Vol] 0.5 mg/dL Normal 0.2-1.0 [facility] Comment on above: Performed By: #### A 1C #### [facility] [address] [address] [address] David Magana Calcium [Mass/Vol] 8.3 mg/dL Critically low 8.5-10.1 [facility] Comment on above: Performed By: #### A 1C #### [facility] [address] [address] [address] David Magana Chloride [Moles/Vol] 105 mmol/L Normal 98-107 [facility] Comment on above: Performed By: #### A 1C #### [facility] [address] [place] [address] Dr. David Magana CO2 [Moles/Vol] 21.0 mmol/L Normal 21.0-32.0 [facility] Comment on above: Performed By: #### A 1C #### [facility] [address] [address] [address] David Magana Creatinine [Mass/Vol] 1.38 mg/dL Critically high 0.70-1.30 [facility] Comment on above: Performed By: #### A 1C #### [facility] [address] [address] [address] David Magana EGFR-AF ANDORRAN 60 mL/min/1.73m2 Normal >=60 [facility] Comment on above: Performed By: #### A 1C #### [facility] [address] [address] [address] David Magana EGFR-NON AF ANDORRAN 49 mL/min/1.73m2 Critically low >=60 [facility] Comment on above: Performed By: #### A 1C #### [facility] [address] [place] [address] Dr. David Magana Globulin (S) [Mass/Vol] 2.8 g/dL Normal [facility] Comment on above: Performed By: #### A 1C #### [facility] [address] [place] [address] Dr. David Magana Glucose [Mass/Vol] 156 mg/dL Critically high 74-106 [facility] Comment on above: Performed By: #### A 1C #### [facility] [address] [place] [address] Dr. David Magana Potassium [Moles/Vol] 4.4 mmol/L Normal 3.5-5.1 [facility] Comment on above: Performed By: #### A 1C #### [facility] [address] [place] [address] Dr. David Magana Protein [Mass/Vol] 5.4 g/dL Critically low 6.4-8.2 [facility] Comment on above: Performed By: #### A 1C #### [facility] [address] [place] [address] Dr. David Magana Sodium [Moles/Vol] 135 mmol/L Critically low 136-145 [facility] Comment on above: Performed By: #### A 1C #### [facility] [address] [place] [address] Dr. David Magana Urea nitrogen [Mass/Vol] 40.0 mg/dL Critically high 7.0-18.0 [facility] Comment on above: Performed By: #### A 1C #### [facility] [address] [place] [address] Dr. David Magana Urea nitrogen/Creatinine [Mass ratio] 29.0 mg/mg Normal [facility] Comment on above: Performed By: #### A 1C #### [facility] [address] [place] [address] Dr. David Magana BNPon 07-19-2022 Natriuretic peptide B (Bld) [Mass/Vol] 54315.0 pg/mL Critically high <=1,800.0 [facility] Comment on above: Performed By: #### [facility] #### [facility] [address] [address] [address] David Magana CBC AUTO DIFFon 07-19-2022 BASO # 0.0 103/ul Normal 0.0-0.1 [facility] Comment on above: Performed By: #### C BC #### [facility] [address] [address] [address] David Magana Basophils/100 WBC (Bld) 0.3 % Normal 0.2-2.0 [facility] Comment on above: Performed By: #### C BC #### [facility] [address] [place] [address] Dr. David Magana EO # 0.0 103/ul Normal 0.0-0.7 [facility] Comment on above: Performed By: #### C BC #### [facility] [address] [place] [address] Dr. David Magana Eosinophils/100 WBC (Bld) 0.2 % Critically low 0.9-7.0 [facility] Comment on above: Performed By: #### C BC #### [facility] [address] [place] [address] Dr. David Magana Erythrocyte distribution width (RBC) [Ratio] 13.4 % Normal 11.0-15.0 [facility] Comment on above: Performed By: #### C BC #### [facility] [address] [place] [address] Dr. David Magana Hematocrit (Bld) [Volume fraction] 43.4 % Normal 42.0-54.0 [facility] Comment on above: Performed By: #### C BC #### [facility] [address] [place] [address] Dr. David Magana Hemoglobin (Bld) [Mass/Vol] 14.6 g/dL Normal 14.0-18.0 [facility] Comment on above: Performed By: #### C BC #### [facility] [address] [place] [address] Dr. David Magana IG # 0.18 10e3/ul Critically high 0.00-0.03 [facility] Comment on above: Performed By: #### C BC #### [facility] [address] [address] [address] David Magana IG % 1.5 % Critically high 0.0-0.5 [facility] Comment on above: Performed By: #### C BC #### [facility] [address] [address] [address] David Magana LYMPH # 0.8 103/ul Critically low 1.2-3.8 [facility] Comment on above: Performed By: #### C BC #### [facility] [address] [place] [address] Dr. David Magana Lymphocytes/100 WBC (Bld) 6.6 % Critically low 20.5-60.0 [facility] Comment on above: Performed By: #### C BC #### [facility] [address] [place] [address] Dr. David Magana MANUAL DIFF REQ NO Normal [facility] [facility] Comment on above: Performed By: #### C BC #### [facility] [address] [place] [address] Dr. David Magana MCH (RBC) [Entitic mass] 33.7 pg Normal 25.9-34.0 [facility] Comment on above: Performed By: #### C BC #### [facility] [address] [place] [address] Dr. David Magana MCHC (RBC) [Mass/Vol] 33.6 g/dL Normal 29.9-35.2 [facility] Comment on above: Performed By: #### C BC #### [facility] [address] [place] [address] Dr. David Magana MCV (RBC) [Entitic vol] 100.2 fL Critically high 80.0-94.0 [facility] Comment on above: Performed By: #### C BC #### [facility] [address] [place] [address] Dr. David Magana MONO # 1.1 103/ul Critically high 0.3-0.8 [facility] Comment on above: Performed By: #### C BC #### [facility] [address] [address] [address] David Magana Monocytes/100 WBC (Bld) 9.3 % Normal 1.7-12.0 [facility] Comment on above: Performed By: #### C BC #### [facility] [address] [address] [address] David Magana NEUT # 9.6 103/ul Critically high 1.4-6.5 [facility] Comment on above: Performed By: #### C BC #### [facility] [address] [address] [address] David Magana Neutrophils/100 WBC (Bld) 82.1 % Critically high 43.0-75.0 [facility] Comment on above: Performed By: #### C BC #### [facility] [address] [place] [address] Dr. David Magana Platelet mean volume (Bld) [Entitic vol] 10.8 fL Normal 9.5-13.5 [facility] Comment on above: Performed By: #### C BC #### [facility] [address] [address] [address] David Magana PLT 202 103/ul Normal 150-450 [facility] Comment on above: Performed By: #### C BC #### [facility] [address] [place] [address] Dr. David Magana RBC 4.33 106/ul Critically low 4.70-6.[address] [facility] Comment on above: Performed By: #### C BC #### [facility] [address] [address] [address] David Magana WBC 11.7 103/ul Critically high 4.0-11.0 [facility] Comment on above: Performed By: #### C BC #### [facility] [address] [place] [address] Dr. David Magana PROF 14(COMP METB)on 022 Albumin [Mass/Vol] 3.4 g/dL Normal 3.4-5.0 [facility] Comment on above: Performed By: #### A 1C #### [facility] [address] [place] [address] Dr. David Magana Albumin/Globulin [Mass ratio] 1.1 {ratio} Normal [facility] Comment on above: Performed By: #### A 1C #### [facility] [address] [place] [address] Dr. David Magana ALP [Catalytic activity/Vol] 63 U/L Normal 46-116 [facility] Comment on above: Performed By: #### A 1C #### [facility] [address] [place] [address] Dr. David Magana ALT [Catalytic activity/Vol] 34 U/L Normal 16-63 [facility] Comment on above: Performed By: #### A 1C #### [facility] [address] [place] [address] Dr. David Magana Anion gap [Moles/Vol] 20.9 mmol/L Normal [facility] Comment on above: Performed By: #### A 1C #### [facility] [address] [place] [address] Dr. David Magana AST [Catalytic activity/Vol] 18 U/L Normal 15-37 [facility] Comment on above: Performed By: #### A 1C #### [facility] [address] [place] [address] Dr. David Magana Bilirubin [Mass/Vol] 0.5 mg/dL Normal 0.2-1.0 [facility] Comment on above: Performed By: #### A 1C #### [facility] [address] [place] [address] Dr. David Magana Calcium [Mass/Vol] 8.5 mg/dL Normal 8.5-10.1 [facility] Comment on above: Performed By: #### A 1C #### [facility] [address] [place] [address] Dr. David Magana Chloride [Moles/Vol] 99 mmol/L Normal 98-107 [facility] Comment on above: Performed By: #### A 1C #### [facility] [address] [place] [address] Dr. David Magana CO2 [Moles/Vol] 19.1 mmol/L Critically low 21.0-32.0 [facility] Comment on above: Performed By: #### A 1C #### [facility] [address] [address] [address] David Magana Creatinine [Mass/Vol] 1.80 mg/dL Critically high 0.70-1.30 [facility] Comment on above: Performed By: #### A 1C #### [facility] [address] [address] [address] David Magana EGFR-AF ANDORRAN 44 mL/min/1.73m2 Critically low >=60 [facility] Comment on above: Performed By: #### A 1C #### [facility] [address] [address] [address] David Magana EGFR-NON AF ANDORRAN 36 mL/min/1.73m2 Critically low >=60 [facility] Comment on above: Performed By: #### A 1C #### [facility] [address] [address] [address] David Magana Globulin (S) [Mass/Vol] 3.2 g/dL Normal [facility] Comment on above: Performed By: #### A 1C #### [facility] [address] [address] [address] David Magana Glucose [Mass/Vol] 287 mg/dL Critically high 74-106 [facility] Comment on above: Performed By: #### A 1C #### [facility] [address] [address] [address] David Magana Potassium [Moles/Vol] 5.0 mmol/L Normal 3.5-5.1 [facility] Comment on above: Performed By: #### A 1C #### [facility] [address] [address] [address] David Magana Protein [Mass/Vol] 6.6 g/dL Normal 6.4-8.[address] [facility] Comment on above: Performed By: #### A 1C #### [facility] [address] [address] [address] David Magana Sodium [Moles/Vol] 134 mmol/L Critically low 136-145 [facility] Comment on above: Performed By: #### A 1C #### [facility] [address] [address] [address] David Magana Urea nitrogen [Mass/Vol] 51.0 mg/dL Critically high 7.0-18.0 [facility] Comment on above: Performed By: #### A 1C #### [facility] [address] [address] [address] David Magana Urea nitrogen/Creatinine [Mass ratio] 28.3 mg/mg [facility] Comment on above: Performed By: #### A 1C #### [facility] [address] [place] [address] Dr. David [facility] MODE NASAL CANNULA [facility] Comment on above: Performed By: #### A 1C #### [facility] [address] [address] [address] David Magana ALLENS TEST Positive [facility] Comment on above: Performed By: #### A 1C #### [facility] [address] [place] [address] Dr. David Magana Base excess Calc (Bld) [Moles/Vol] -9.0000 mmol/L Critically low -2.0-2.0 [facility] Comment on above: Performed By: #### A 1C #### [facility] [address] [place] [address] Dr. David Magana BIPAP PRESSURE [facility] Comment on above: Performed By: #### A 1C #### [facility] [address] [address] [address] David Magana CPAP [facility] Comment on above: Performed By: #### A 1C #### [facility] [address] [place] [address] Dr. David Magana FIO2 [facility] Comment on above: Performed By: #### A 1C #### [facility] [address] [place] [address] Dr. David Magana HCO3 (Bld) [Moles/Vol] 18.4 mmol/L Critically low 22.0-26.0 [facility] Comment on above: Performed By: #### A 1C #### [facility] [address] [place] [address] Dr. David Magana LPM 1.5 Normal [facility] Comment on above: Performed By: #### A 1C #### [facility] [address] [place] [address] Dr. David Magana MINUTE VOLUME Normal [facility] Comment on above: Performed By: #### A 1C #### [facility] [address] [place] [address] Dr. David Magana Oxygen (Bld) [Partial pressure] 69.5 mm[Hg] Critically low 80.0-100.0 [facility] Comment on above: Performed By: #### A 1C #### [facility] [address] [place] [address] Dr. David Magana Oxygen saturation in Blood 94.2 % Critically low 95.0-100.0 [facility] Comment on above: Performed By: #### A 1C #### [facility] [address] [place] [address] Dr. David Magana PCO2 29.6 mmHg Critically low 35.0-45.0 [facility] Comment on above: Performed By: #### A 1C #### [facility] [address] [place] [address] Dr. David Magana PEEP Normal [facility] Comment on above: Performed By: #### A 1C #### [facility] [address] [place] [address] Dr. David Magana pH (Bld) 7.355 [pH] Normal 7.350-7.450 [facility] Comment on above: Performed By: #### A 1C #### [facility] [address] [place] [address] Dr. David Magana PIP Normal [facility] Comment on above: Performed By: #### A 1C #### [facility] [address] [place] [address] Dr. David Magana PS [facility] Comment on above: Performed By: #### A 1C #### [facility] [address] [place] [address] Dr. David Magana PUNCTURE SITE LR [facility] Comment on above: Performed By: #### A 1C #### [facility] [address] [place] [address] Dr. David Magana RATE [facility] Comment on above: Performed By: #### A 1C #### [facility] [address] [place] [address] Dr. David Magana VENT MODE [facility] Comment on above: Performed By: #### A 1C #### [facility] [address] [place] [address] Dr. David Magana [facility] Comment on above: Performed By: #### A 1C #### [facility] [address] [place] [address] Dr. David Magana BNPon 07-18-2022 Natriuretic peptide B (Bld) [Mass/Vol] 7047.0 pg/mL Critically high <=1,800.0 [facility] Comment on above: Performed By: #### C VDTB #### [facility] [address] [place] [address] Dr. David Magana CARDIAC BARRIE 3-6on 2 CK [Catalytic activity/Vol] 396 U/L Critically high 39-308 [facility] Comment on above: Performed By: #### M G, BMP, PHOS #### [facility] [address] [place] [address] Dr. David Magana CK.MB [Mass/Vol] 2.94 ng/mL Normal <=3.60 [facility] Comment on above: Performed By: #### M G, BMP, PHOS #### [facility] [address] [place] [address] Dr. David Magana HSTROP 11.1 pg/mL Normal 4.0-76.1 [facility] Comment on above: Result Comment: CUT- OFF POINTS HAVE BEEN ESTABLISHED BASED ON THE FOURTH UNIVERSAL DEFINITIONS OF MYOCARDIAL INFARCTION. THE UPPER REFERENCE LIMIT (URL) OF TROPONIN, DEFINED THE 99TH PERCENTILE OF cTnI DISTRIBUTION IN A REFERENCE POPULATION, HAS BEEN CONFIRMED THE DECISION THRESHOLD FOR ND DIAGNOSIS. Performed By: #### M ERICK Faith, PHOS #### [facility] [address] [place] [address] Dr. David Magana CK [Catalytic activity/Vol] 58 U/L Normal 39-308 [facility] Comment on above: Performed By: #### M ERICK Faith, PHOS #### [facility] [address] [place] [address] Dr. David Magana CK.MB [Mass/Vol] 1.71 ng/mL Normal <=3.60 [facility] Comment on above: Performed By: #### ERICK Jacques, PHOS #### [facility] [address] [place] [address] Dr. David Magana HSTROP 10.6 pg/mL Normal 4.0-76.1 [facility] Comment on above: Result Comment: CUT- OFF POINTS HAVE BEEN ESTABLISHED BASED ON THE FOURTH UNIVERSAL DEFINITIONS OF MYOCARDIAL INFARCTION. THE UPPER REFERENCE LIMIT (URL) OF TROPONIN, DEFINED THE 99TH PERCENTILE OF cTnI DISTRIBUTION IN A REFERENCE POPULATION, HAS BEEN CONFIRMED THE DECISION THRESHOLD FOR ND DIAGNOSIS. Performed By: #### M ERICK Faith, PHOS #### [facility] [address] [place] [address] Dr. David Magana CBC AUTO DIFFon 07-18-2022 BASO # 0.0 103/ul Normal 0.0-0.1 [facility] Comment on above: Performed By: #### M ERICK Faith, PHOS #### [facility] [address] [place] [address] Dr. David Magana Basophils/100 WBC (Bld) 0.2 % Normal 0.2-2.0 [facility] Comment on above: Performed By: #### M ERICK Faith, PHOS #### [facility] [address] [place] [address] Dr. David Magana EO # 0.0 103/ul Normal 0.0-0.7 [facility] Comment on above: Performed By: #### M ERICK Faith, PHOS #### [facility] [address] [place] [address] Dr. David Magana Eosinophils/100 WBC (Bld) 0.2 % Critically low 0.9-7.0 [facility] Comment on above: Performed By: #### ERICK Jacques, PHOS #### [facility] [address] [place] [address] Dr. David Magana Erythrocyte distribution width (RBC) [Ratio] 13.2 % Normal 11.0-15.0 [facility] Comment on above: Performed By: #### M ERICK Faith, PHOS #### [facility] [address] [place] [address] Dr. David Magana Hematocrit (Bld) [Volume fraction] 43.8 % Normal 42.0-54.0 [facility] Comment on above: Performed By: #### ERICK Jacques, PHOS #### [facility] [address] [place] [address] Dr. David Magana Hemoglobin (Bld) [Mass/Vol] 14.5 g/dL Normal 14.0-18.0 [facility] Comment on above: Performed By: #### ERICK Jacques, PHOS #### [facility] [address] [place] [address] Dr. David Magana IG # 0.15 10e3/ul Critically high 0.00-0.03 [facility] Comment on above: Performed By: #### ERICK Jacques, PHOS #### [facility] [address] [place] [address] Dr. David Magana IG % 1.3 % Critically high 0.0-0.[address] [facility] Comment on above: Performed By: #### M ERICK Faith, PHOS #### [facility] [address] [place] [address] Dr. David Magana LYMPH # 0.5 103/ul Critically low 1.2-3.8 [facility] Comment on above: Performed By: #### ERICK Jacques, PHOS #### [facility] [address] [address] [address] David Magana Lymphocytes/100 WBC (Bld) 3.8 % Critically low 20.5-60.0 [facility] Comment on above: Performed By: #### M G, BMP, PHOS #### [facility] [address] [address] [address] David Magana MANUAL DIFF REQ NO Normal [facility] Comment on above: Performed By: #### M G, BMP, PHOS #### [facility] [address] [place] [address] Dr. David Magana MCH (RBC) [Entitic mass] 32.7 pg Normal 25.9-34.0 [facility] Comment on above: Performed By: #### M G, BMP, PHOS #### [facility] [address] [place] [address] Dr. David Magana MCHC (RBC) [Mass/Vol] 33.1 g/dL Normal 29.9-35.2 [facility] Comment on above: Performed By: #### M G, BMP, PHOS #### [facility] [address] [place] [address] Dr. David Magana MCV (RBC) [Entitic vol] 98.9 fL Critically high 80.0-94.0 [facility] Comment on above: Performed By: #### M Marcell, BMP, PHOS #### [facility] [address] [place] [address] Dr. David Magana MONO # 0.7 103/ul Normal 0.3-0.8 [facility] Comment on above: Performed By: #### M G, BMP, PHOS #### [facility] [address] [place] [address] Dr. David Magana Monocytes/100 WBC (Bld) 5.7 % Normal 1.7-12.0 [facility] Comment on above: Performed By: #### M G, BMP, PHOS #### [facility] [address] [address] [address] David Magana NEUT # 10.4 103/ul Critically high 1.4-6.5 [facility] Comment on above: Performed By: #### ERICK Jacques, PHOS #### [facility] [address] [address] [address] David Magana Neutrophils/100 WBC (Bld) 88.8 % Critically high 43.0-75.0 [facility] Comment on above: Performed By: #### ERICK Jacques, PHOS #### [facility] [address] [address] [address] David Magana Platelet mean volume (Bld) [Entitic vol] 11.0 fL Normal 9.5-13.5 [facility] Comment on above: Performed By: #### ERICK Jacques, PHOS #### [facility] [address] [place] [address] Dr. David Magana PLT 198 103/ul Normal 150-450 [facility] Comment on above: Performed By: #### ERICK Jacques, PHOS #### [facility] [address] [address] [address] David Magana RBC 4.43 106/ul Critically low 4.70-6.[address] [facility] Comment on above: Performed By: #### ERICK Jacques, PHOS #### [facility] [address] [place] [address] Dr. David Magana WBC 11.8 103/ul Critically high 4.0-11.0 [facility] Comment on above: Performed By: #### ERICK Jacques, PHOS #### [facility] [address] [place] [address] HEAD WO CONon [...] FRANCISCO ZELAYA Date: 2022-07-18 05:12 Normal [facility] Covid-19 PCR (CVDTBH)on SARS-CoV-2 (COVID-19) RNA SULTANA+probe Ql (Unsp spec) Detected Critically abnormal NOT DETECTED [facility] Comment on above: Result Comment: This test is not yet approved or cleared by the [place] FDA. When there are no FDA-approved or cleared tests available, and other criteria are met, FDA can make tests available under an emergency access mechanism called an Emergency Use Authorization (EUA). The EUA for this test is supported by the Consulting Nurse of Health and Human Service's declaration that [...] used). Performed By: #### C VDTB #### [facility] [address] [address] [address] David Magana D-DIMERon 07-18-2022 D-DIMER 1.69 mg/L FEU Critically high <=0.[address] [facility] Comment on above: Performed By: #### C BC #### [facility] [address] [place], [place] [address] Dr. David Magana D-DIMER COMMENTS SEE BELOW Normal [facility] Comment on above: Result Comment: Incr [...] hospitalization. Performed By: #### C BC #### [facility] [address] [place] [address] Dr. David Magana POINT OF CARE GLUCOSEon Glucose [Mass/Vol] 329 mg/dL Critically high 74-106 [facility] Comment on above: Performed By: #### P OCGLUC #### [facility] [address] [place] [address] Dr. David Magana Glucose [Mass/Vol] 354 mg/dL Critically high 74-106 [facility] Comment on above: Performed By: #### P OCGLUC #### [facility] [address] [place] [address] Dr. David Magana PROF 14(COMP METB)on 022 Albumin [Mass/Vol] 3.6 g/dL Normal 3.4-5.0 [facility] Comment on above: Performed By: #### C VDTBH #### [facility] [address] [place] [address] Dr. David Magana Albumin/Globulin [Mass ratio] 1.1 {ratio} Normal [facility] Comment on above: Performed By: #### C VDTBH #### [facility] [address] [place] [address] Dr. David Magana ALP [Catalytic activity/Vol] 67 U/L Normal 46-116 [facility] Comment on above: Performed By: #### C VDTBH #### [facility] [address] [place] [address] Dr. David Magana ALT [Catalytic activity/Vol] 33 U/L Normal 16-63 [facility] Comment on above: Performed By: #### C VDTBH #### [facility] [address] [place] [address] Dr. David Magana Anion gap [Moles/Vol] 23.5 mmol/L Normal [facility] Comment on above: Performed By: #### C VDTBH #### [facility] [address] [place] [address] Dr. David Magana AST [Catalytic activity/Vol] 13 U/L Critically low 15-37 [facility] Comment on above: Performed By: #### C VDTBH #### [facility] [address] [address] [address] David Magana Bilirubin [Mass/Vol] 0.6 mg/dL Normal 0.2-1.0 [facility] Comment on above: Performed By: #### C VDTBH #### [facility] [address] [place] [address] Dr. David Magana Calcium [Mass/Vol] 8.4 mg/dL Critically low 8.5-10.1 [facility] Comment on above: Performed By: #### C VDTBH #### [facility] [address] [place] [address] Dr. David Magana Chloride [Moles/Vol] 93 mmol/L Critically low 98-107 [facility] Comment on above: Performed By: #### C VDTBH #### [facility] [address] [place] [address] Dr. David Magana CO2 [Moles/Vol] 17.9 mmol/L Critically low 21.0-32.0 [facility] Comment on above: Performed By: #### C VDTBH #### [facility] [address] [place] [address] Dr. David Magana Creatinine [Mass/Vol] 2.15 mg/dL Critically high 0.70-1.30 [facility] Comment on above: Performed By: #### C VDTBH #### [facility] [address] [place] [address] Dr. David Magana EGFR-AF ANDORRAN 36 mL/min/1.73m2 Critically low >=60 [facility] Comment on above: Performed By: #### C VDTBH #### [facility] [address] [place] [address] Dr. David Magana EGFR-NON AF ANDORRAN 30 mL/min/1.73m2 Critically low >=60 [facility] Comment on above: Performed By: #### C VDTBH #### [facility] [address] [place] [address] Dr. David Magana Globulin (S) [Mass/Vol] 3.2 g/dL Normal [facility] Comment on above: Performed By: #### C VDTBH #### [facility] [address] [place] [address] Dr. David Magana Glucose [Mass/Vol] 345 mg/dL Critically high 74-106 [facility] Comment on above: Performed By: #### C VDTBH #### [facility] [address] [place] [address] Dr. David Magana Potassium [Moles/Vol] 5.4 mmol/L Critically high 3.5-5.1 [facility] Comment on above: Performed By: #### C VDTBH #### [facility] [address] [place] [address] Dr. David Magana Performed By: #### K #### [facility] [address] [place] [address] Dr. David Magana Protein [Mass/Vol] 6.8 g/dL Normal 6.4-8.2 [facility] Comment on above: Performed By: #### C VDTBH #### [facility] [address] [place] [address] Dr. David Magana Sodium [Moles/Vol] 129 mmol/L Critically low 136-145 [facility] Comment on above: Performed By: #### C VDTBH #### [facility] [address] [place] [address] Dr. David Magana Urea nitrogen [Mass/Vol] 65.0 mg/dL Critically high 7.0-18.0 [facility] Comment on above: Performed By: #### C VDTBH #### [facility] [address] [place] [address] Dr. David Maagna Urea nitrogen/Creatinine [Mass ratio] 30.2 mg/mg Normal [facility] Comment on above: Performed By: #### C VDTBH #### [facility] [address] [place] [address] Dr. David Magana UA RANDOM W/MICROSCOPICon 09 -03-2022 BACTERIA NONE SEEN Normal NONE SEEN [facility] Comment on above: Performed By: #### M G, BMP, PHOS #### [facility] [address] [place] [address] Dr. David Magana Bilirubin Ql (U) Negative Normal NEGATIVE [facility] Comment on above: Performed By: #### M G, BMP, PHOS #### [facility] [address] [address] [address] David Magana CAST NONE SEEN Normal NONE SEEN [facility] Comment on above: Performed By: #### M G, BMP, PHOS #### [facility] [address] [place] [address] Dr. David Magana Clarity (U) CLEAR Normal CLEAR [facility] Comment on above: Performed By: #### M G, BMP, PHOS #### [facility] [address] [place] [address] Dr. David Magana Color (U) LT. YELLOW Normal YELLOW [facility] Comment on above: Performed By: #### M G, BMP, PHOS #### [facility] [address] [place] [address] Dr. David Magana Crystals LM Nom (Urine sed) NONE SEEN Normal NONE SEEN [facility] Comment on above: Performed By: #### M G, BMP, PHOS #### [facility] [address] [place] [address] Dr. David Magana Epithelial cells LM Ql (Urine sed) RARE Normal NONE SEEN /RARE [facility] Comment on above: Performed By: #### M G, BMP, PHOS #### [facility] [address] [place] [address] Dr. David Magana Glucose Ql (U) 1000 mg/dl Abnormal NEGATIVE [facility] Comment on above: Performed By: #### M G, BMP, PHOS #### [facility] [address] [place] [address] Dr. David Magana Hemoglobin Ql (U) Negative Normal NEGATIVE [facility] Comment on above: Performed By: #### M G, BMP, PHOS #### [facility] [address] [address] [address] David Magana Ketones Ql (U) 15 mg/dl Abnormal NEGATIVE [facility] Comment on above: Performed By: #### M G, BMP, PHOS #### [facility] [address] [address] [address] David Magana LEUKOCYTES Negative Normal NEGATIVE [facility] Comment on above: Performed By: #### M G, BMP, PHOS #### [facility] [address] [place] [address] Dr. David Magana MUCOUS NONE SEEN Normal NONE SEEN [facility] Comment on above: Performed By: #### M G, BMP, PHOS #### [facility] [address] [place] [address] Dr. David Magana Nitrite Ql (U) Negative Normal NEGATIVE [facility] Comment on above: Performed By: #### M G, BMP, PHOS #### [facility] [address] [place] [address] Dr. David Magana pH (U) 5.5 [pH] Normal 5-9 [facility] Comment on above: Performed By: #### M G, BMP, PHOS #### [facility] [address] [place] [address] Dr. David Magana RBC NONE SEEN Abnormal 0-2 [facility] Comment on above: Performed By: #### M G, BMP, PHOS #### [facility] [address] [place] [address] Dr. David Magana SPEC GRAVITY <=1.005 Abnormal 1.005-<=1.025 [facility] Comment on above: Performed By: #### M G, BMP, PHOS #### [facility] [address] [place] [address] Dr. Daivd Magana UA PROTEIN Negative Normal NEGATIVE/ TRACE [facility] Comment on above: Performed By: #### M G, BMP, PHOS #### [facility] [address] [place] [address] Dr. David Magana Urobilinogen Qn (U) 0.2 {Dionna'U}/dL Normal 0.2 - 1. 0 [facility] Comment on above: Performed By: #### M ERICK Faith PHOS #### [facility] [address] [place] [address] Dr. David Magana WBC NONE SEEN Normal NONE SEEN [facility] Comment on above: Performed By: #### M ERICK Faith, PHOS #### [facility] [address] [place] [address] Dr. David Magana XR CHEST 1 Von [...] Yefri DWYER Date: 2022-07-18 00:09 Normal [facility] CARDIAC BARRIE ADMITon 022 CK [Catalytic activity/Vol] 61 U/L Normal 39-308 [facility] Comment on above: Performed By: #### C BC #### [facility] [address] [place] [address] Dr. David Magana CK.MB [Mass/Vol] 1.84 ng/mL Normal <=3.60 [facility] Comment on above: Performed By: #### C BC #### [facility] [address] [place] [address] Dr. David Magana HSTROP 9.4 pg/mL Normal 4.0-76.1 [facility] Comment on above: Result Comment: CUT- OFF POINTS HAVE BEEN ESTABLISHED BASED ON THE FOURTH UNIVERSAL DEFINITIONS OF MYOCARDIAL INFARCTION. THE UPPER REFERENCE LIMIT (URL) OF TROPONIN, DEFINED THE 99TH PERCENTILE OF cTnI DISTRIBUTION IN A REFERENCE POPULATION, HAS BEEN CONFIRMED THE DECISION THRESHOLD FOR ND DIAGNOSIS. Performed By: #### C BC #### [facility] [address] [place] [address] Dr. David Magana DUSTIN 533 ng/mL Critically high 16-96 [facility] Comment on above: Performed By: #### C BC #### [facility] [address] [place] [address] Dr. David Magana CBC AUTO DIFFon 07-17-2022 BASO # 0.0 103/ul Normal 0.0-0.1 [facility] Comment on above: Performed By: #### M ERICK Faith, PHOS #### [facility] [address] [place] [address] Dr. David Magana Basophils/100 WBC (Bld) 0.2 % Normal 0.2-2.0 [facility] Comment on above: Performed By: #### M ERICK Faith, PHOS #### [facility] [address] [place] [address] Dr. David Magana EO # 0.0 103/ul Normal 0.0-0.7 [facility] Comment on above: Performed By: #### ERICK Jacques, PHOS #### [facility] [address] [place] [address] Dr. David Magana Eosinophils/100 WBC (Bld) 0.1 % Critically low 0.9-7.0 [facility] Comment on above: Performed By: #### ERICK Jacques, PHOS #### [facility] [address] [place] [address] Dr. David Magana Erythrocyte distribution width (RBC) [Ratio] 13.2 % Normal 11.0-15.0 [facility] Comment on above: Performed By: #### ERICK Jacques, PHOS #### [facility] [address] [place] [address] Dr. David Magana Hematocrit (Bld) [Volume fraction] 43.1 % Normal 42.0-54.0 [facility] Comment on above: Performed By: #### M ERICK Faith, PHOS #### [facility] [address] [place] [address] Dr. David Magana Hemoglobin (Bld) [Mass/Vol] 14.5 g/dL Normal 14.0-18.0 [facility] Comment on above: Performed By: #### M ERICK Faith, PHOS #### [facility] [address] [address] [address] David Magana IG # 0.14 10e3/ul Critically high 0.00-0.03 [facility] Comment on above: Performed By: #### M G, BMP, PHOS #### [facility] [address] [place] [address] Dr. David Magana IG % 1.2 % Critically high 0.0-0.5 [facility] Comment on above: Performed By: #### M G, BMP, PHOS #### [facility] [address] [place] [address] Dr. David Magana LYMPH # 0.4 103/ul Critically low 1.2-3.8 [facility] Comment on above: Performed By: #### M G, BMP, PHOS #### [facility] [address] [place] [address] Dr. David Magana Lymphocytes/100 WBC (Bld) 3.4 % Critically low 20.5-60.0 [facility] Comment on above: Performed By: #### M G, BMP, PHOS #### [facility] [address] [place] [address] Dr. David Magana MANUAL DIFF REQ NO Normal [facility] Comment on above: Performed By: #### M G, BMP, PHOS #### [facility] [address] [place] [address] Dr. David Magana MCH (RBC) [Entitic mass] 33.3 pg Normal 25.9-34.0 [facility] Comment on above: Performed By: #### M G, BMP, PHOS #### [facility] [address] [place] [address] Dr. David Magana MCHC (RBC) [Mass/Vol] 33.6 g/dL Normal 29.9-35.2 [facility] Comment on above: Performed By: #### M G, BMP, PHOS #### [facility] [address] [place] [address] Dr. David Magana MCV (RBC) [Entitic vol] 98.9 fL Critically high 80.0-94.0 [facility] Comment on above: Performed By: #### ERICK Jacques, PHOS #### [facility] [address] [place] [address] Dr. David Magana MONO # 1.1 103/ul Critically high 0.3-0.[address] [facility] Comment on above: Performed By: #### ERICK Jacques, PHOS #### [facility] [address] [place] [address] Dr. David Magana Monocytes/100 WBC (Bld) 8.9 % Normal 1.7-12.0 [facility] Comment on above: Performed By: #### ERICK Jacques, PHOS #### [facility] [address] [place] [address] Dr. David Magana NEUT # 10.3 103/ul Critically high 1.4-6.5 [facility] Comment on above: Performed By: #### ERICK Jacques, PHOS #### [facility] [address] [place] [address] Dr. David Magana Neutrophils/100 WBC (Bld) 86.2 % Critically high 43.0-75.0 [facility] Comment on above: Performed By: #### ERICK Jacques, PHOS #### [facility] [address] [place] [address] Dr. David Magana Platelet mean volume (Bld) [Entitic vol] 11.1 fL Normal 9.5-13.5 [facility] Comment on above: Performed By: #### ERICK Jacques, PHOS #### [facility] [address] [place] [address] Dr. David Magana PLT 229 103/ul Normal 150-450 [facility] Comment on above: Performed By: #### ERICK Jacques, PHOS #### [facility] [address] [place] [address] Dr. David Magana RBC 4.36 106/ul Critically low 4.70-6.[address] [facility] Comment on above: Performed By: #### ERICK Jacques, PHOS #### [facility] [address] [address] [address] David Magana WBC 11.9 103/ul Critically high 4.0-11.0 [facility] Comment on above: Performed By: #### M ERICK Faith, PHOS #### [facility] [address] [address] [address] David Magana PROF CHEM 8 (BAS METB)on Anion gap [Moles/Vol] 26.5 mmol/L Normal [facility] Comment on above: Performed By: #### C BC #### [facility] [address] [address] [address] David Magana Calcium [Mass/Vol] 8.2 mg/dL Critically low 8.5-10.1 [facility] Comment on above: Performed By: #### C BC #### [facility] [address] [address] [address] David Magana Chloride [Moles/Vol] 89 mmol/L Critically low 98-107 [facility] Comment on above: Performed By: #### C BC #### [facility] [address] [address] [address] David Magana CO2 [Moles/Vol] 14.5 mmol/L Critically low 21.0-32.0 [facility] Comment on above: Performed By: #### C BC #### [facility] [address] [address] [address] David Magana Creatinine [Mass/Vol] 2.78 mg/dL Critically high 0.70-1.30 [facility] Comment on above: Performed By: #### C BC #### [facility] [address] [address] [address] David Magana EGFR-AF ANDORRAN 27 mL/min/1.73m2 Critically low >=60 [facility] Comment on above: Performed By: #### C BC #### [facility] [address] [address] [address] David Magana EGFR-NON AF ANDORRAN 22 mL/min/1.73m2 Critically low >=60 [facility] Comment on above: Performed By: #### C BC #### [facility] [address] [address] [address] David Magana Glucose [Mass/Vol] 442 mg/dL Critically high 74-106 [facility] Comment on above: Performed By: #### C BC #### [facility] [address] [id number] David Magana Potassium [Moles/Vol] 6.0 mmol/L Critically high 3.5-5.1 [facility] Comment on above: Performed By: #### C BC #### [facility] [address] [address] [address] David Magana Sodium [Moles/Vol] 124 mmol/L Critically low 136-145 [facility] Comment on above: Performed By: #### C BC #### [facility] [address] [address] [address] David Magana Urea nitrogen [Mass/Vol] 73.0 mg/dL Critically high 7.0-18.0 [facility] Comment on above: Performed By: #### C BC #### [facility] [address] [address] [address] David Magana Urea nitrogen/Creatinine [Mass ratio] 26.3 mg/mg Normal [facility] Comment on above: Performed By: #### C BC #### [facility] [address] [address] [address] David Magana Covid-19 PCR ([facility])on 06-16 SARS-CoV-2 (COVID-19) RNA SULTANA+probe Ql (Unsp spec) Detected Critically abnormal NOT DETECTED [facility] Comment on above: Result Comment: This test is not yet approved or cleared by the [place] FDA. When there are no FDA-approved or cleared tests available, and other criteria are met, FDA can make tests available under an emergency access mechanism called an Emergency Use Authorization (EUA). The EUA for this test is supported by the [place] of Health and Human Service's (HHS's) declaration [...] By: #### M Marcell, ERICK, JOSUE #### [facility] [address] [address] [address] David Magana ECHOCARDIO M/2D COMPLETEon 0 07-01-2022 ECHOCARDIO M/2D COMPLETE Patient: NADIR HEREDIA Exam Date: 07/01/2022 : 1940 Gender:M Ordering : DR CLARIBEL PUGA M.D. Admission #: [id number] Family : DR VAN SUNG . Order #: [id number] CLICK HERE TO VIEW EXAM ECHOCARDIOGRAM REPORT [...] M.D. on 07/01/2022 at 16:27 Normal [facility] Covid-19 PCR ([facility])on SARS-CoV-2 (COVID-19) RNA SULTANA+probe Ql (Unsp spec) Not detected Normal NOT DETECTED [facility] Comment on above: Result Comment: When [...] for this test is supported by the [place] of Health and Human Service's declaration that [...] used). Performed By: #### C VDTBH #### [facility] [address] [place] [address] Dr. David Magana CREATININE URINEon URINE CREAT 14.70 mg/dL Critically low 20.00-300.[address] [facility] Comment on above: Performed By: #### M ERICK Faith PHOS #### [facility] [address] [place] [address] Dr. David Magana GLYCOHEMOGLOBIN A1Con 2021 ADA RECOMMENDATION SEE BELOW Normal [facility] Comment on above: Result Comment: ADA RECOMMENDED LIMIT 4.0 - 6.0 ADA THERAPEUTIC TARGET < 7.0 ACTION SUGGESTED > 7.0 Performed By: #### A 1C #### [facility] [address] [place] [address] Dr. David Magana Glucose [Mass/Vol] 209 mg/dL Normal [facility] Comment on above: Performed By: #### A 1C #### [facility] [address] [place] [address] Dr. David Magana HbA1c (Bld) [Mass fraction] 8.9 % Critically high 4.5-6.2 [facility] Comment on above: Performed By: #### A 1C #### [facility] [address] [place] [address] Dr. David Magana MAGNESIUMon 06-08-2022 Magnesium [Mass/Vol] 2.3 mg/dL Normal 1.8-2.4 [facility] Comment on above: Performed By: #### M G, BMP, PHOS #### [facility] [address] [place] [address] Dr. David Magana PHOSPHORUSon 06-08-2022 Phosphate [Mass/Vol] 3.5 mg/dL Normal 2.6-4.7 [facility] Comment on above: Performed By: #### M G, BMP, PHOS #### [facility] [address] [place] [address] Dr. David Magana PROF CHEM 8 (BAS METB)on Anion gap [Moles/Vol] 10.6 mmol/L Normal [facility] Comment on above: Performed By: #### M G, BMP, PHOS #### [facility] [address] [place] [address] Dr. David Magana Calcium [Mass/Vol] 9.2 mg/dL Normal 8.5-10.1 [facility] Comment on above: Performed By: #### M G, BMP, PHOS #### [facility] [address] [place] [address] Dr. David Magana Chloride [Moles/Vol] 102 mmol/L Normal 98-107 [facility] Comment on above: Performed By: #### M G, BMP, PHOS #### [facility] [address] [place] [address] Dr. David Magana CO2 [Moles/Vol] 30.1 mmol/L Normal 21.0-32.0 [facility] Comment on above: Performed By: #### M G, BMP, PHOS #### [facility] [address] [place] [address] Dr. David Magana Creatinine [Mass/Vol] 1.70 mg/dL Critically high 0.70-1.30 [facility] Comment on above: Performed By: #### M G, BMP, PHOS #### [facility] [address] [address] [address] David Magana EGFR-AF ANDORRAN 47 mL/min/1.73m2 Critically low >=60 [facility] Comment on above: Performed By: #### M G, BMP, PHOS #### [facility] [address] [address] [address] David Magana EGFR-NON AF ANDORRAN 39 mL/min/1.73m2 Critically low >=60 [facility] Comment on above: Performed By: #### M G, BMP, PHOS #### [facility] [address] [place] [address] Dr. David Magana Glucose [Mass/Vol] 197 mg/dL Critically high 74-106 [facility] Comment on above: Performed By: #### M G, BMP, PHOS #### [facility] [address] [place] [address] Dr. David Magana Potassium [Moles/Vol] 4.7 mmol/L Normal 3.5-5.1 [facility] Comment on above: Performed By: #### M G, BMP, PHOS #### [facility] [address] [place] [address] Dr. David Magana Sodium [Moles/Vol] 138 mmol/L Normal 136-145 [facility] Comment on above: Performed By: #### M G, BMP, PHOS #### [facility] [address] [place] [address] Dr. David Magana Urea nitrogen [Mass/Vol] 25.0 mg/dL Critically high 7.0-18.0 [facility] Comment on above: Performed By: #### M G, BMP, PHOS #### [facility] [address] [place] [address] Dr. David Magana Urea nitrogen/Creatinine [Mass ratio] 14.7 mg/mg Normal [facility] Comment on above: Performed By: #### M G, BMP, PHOS #### [facility] [address] [place] [address] Dr. David Magana PROTEIN RAND URINEon 022 UR PROT <5.0 Normal <=11.9 [facility] Comment on above: Performed By: #### C REAU, PROTU #### [facility] [address] [place] [address] Dr. David Magana BILIRUBIN CONJUGATED (DIRECT )on 04-28-2022 BILI, CONJUGATED 0.1 mg/dL Normal 0.0-0.2 [facility] Comment on above: Performed By: #### P OCGLUC #### [facility] [address] [place] [address] Dr. David Magana CBC AUTO DIFFon 04-28-2022 BASO # 0.1 103/ul Normal 0.0-0.1 [facility] Comment on above: Performed By: #### C VDTBH #### [facility] [address] [place] [address] Dr. David Magana Basophils/100 WBC (Bld) 0.7 % Normal 0.2-2.0 [facility] Comment on above: Performed By: #### C VDTBH #### [facility] [address] [place] [address] Dr. David Magana EO # 0.5 103/ul Normal 0.0-0.7 [facility] Comment on above: Performed By: #### C VDTBH #### [facility] [address] [place] [address] Dr. David Magana Eosinophils/100 WBC (Bld) 6.7 % Normal 0.9-7.0 [facility] Comment on above: Performed By: #### C VDTBH #### [facility] [address] [place] [address] Dr. David Magana Erythrocyte distribution width (RBC) [Ratio] 13.6 % Normal 11.0-15.0 [facility] Comment on above: Performed By: #### C VDTBH #### [facility] [address] [place] [address] Dr. David Magana Hematocrit (Bld) [Volume fraction] 45.9 % Normal 42.0-54.0 [facility] Comment on above: Performed By: #### C VDTBH #### [facility] [address] [place] [address] Dr. David Magana Hemoglobin (Bld) [Mass/Vol] 14.9 g/dL Normal 14.0-18.0 [facility] Comment on above: Performed By: #### C VDTBH #### [facility] [address] [place] [address] Dr. David Magana IG # 0.03 10e3/ul Normal 0.00-0.03 [facility] Comment on above: Performed By: #### C VDTBH #### [facility] [address] [place] [address] Dr. David Magana IG % 0.4 % Normal 0.0-0.5 [facility] Comment on above: Performed By: #### C VDTBH #### [facility] [address] [place] [address] Dr. David Magana LYMPH # 1.0 103/ul Critically low 1.2-3.8 [facility] Comment on above: Performed By: #### C VDTBH #### [facility] [address] [place] [address] Dr. David Magana Lymphocytes/100 WBC (Bld) 13.4 % Critically low 20.5-60.0 [facility] Comment on above: Performed By: #### C VDTBH #### [facility] [address] [place] [address] Dr. David Magana MANUAL DIFF REQ NO Normal [facility] Comment on above: Performed By: #### C VDTBH #### [facility] [address] [place] [address] Dr. David Magana MCH (RBC) [Entitic mass] 33.8 pg Normal 25.9-34.0 [facility] Comment on above: Performed By: #### C VDTBH #### [facility] [address] [place] [address] Dr. David Magana MCHC (RBC) [Mass/Vol] 32.5 g/dL Normal 29.9-35.2 [facility] Comment on above: Performed By: #### C VDTBH #### [facility] [address] [place] [address] Dr. David Magana MCV (RBC) [Entitic vol] 104.1 fL Critically high 80.0-94.0 [facility] Comment on above: Performed By: #### C VDTBH #### [facility] [address] [place] [address] Dr. David Magana MONO # 0.8 103/ul Normal 0.3-0.8 [facility] Comment on above: Performed By: #### C VDTBH #### [facility] [address] [place] [address] Dr. David Magana Monocytes/100 WBC (Bld) 10.2 % Normal 1.7-12.0 [facility] Comment on above: Performed By: #### C VDTBH #### [facility] [address] [place] [address] Dr. David Magana NEUT # 5.1 103/ul Normal 1.4-6.5 [facility] Comment on above: Performed By: #### C VDTBH #### [facility] [address] [place] [address] Dr. David Magana Neutrophils/100 WBC (Bld) 68.6 % Normal 43.0-75.0 [facility] Comment on above: Performed By: #### C VDTBH #### [facility] [address] [place] [address] Dr. David Magana Platelet mean volume (Bld) [Entitic vol] 11.3 fL Normal 9.5-13.5 [facility] Comment on above: Performed By: #### C VDTBH #### [facility] [address] [place] [address] Dr. David Magana PLT 185 103/ul Normal 150-450 [facility] Comment on above: Performed By: #### C VDTBH #### [facility] [address] [place] [address] Dr. David Magana RBC 4.41 106/ul Critically low 4.70-6.10 [facility] Comment on above: Performed By: #### C VDTBH #### [facility] [address] [address] [address] David Magana WBC 7.5 103/ul Normal 4.0-11.0 [facility] Comment on above: Performed By: #### C VDTBH #### [facility] [address] [place] [address] Dr. David Magana FREE T3on 04-28-2022 FREE T3 2.17 pg/mlL Critically low 2.18-3.98 [facility] Comment on above: Performed By: #### P OCGLUC #### [facility] [address] [place] [address] Dr. David Magana LIPID PROFILEon 04-28-2022 CHOL-HDL RATIO NORM SEE BELOW Normal [facility] Comment on above: Result Comment: 3.3 - 4.4 LOW RISK 4.4 - 7.1 AVERAGE RISK 7.1 - 11.0 MODERATE RISK >11.0 HIGH RISK Performed By: #### P OCGLUC #### [facility] [address] [place] [address] Dr. David Magana Cholesterol [Mass/Vol] 234 mg/dL Critically high <=200 [facility] Comment on above: Performed By: #### P OCGLUC #### [facility] [address] [place] [address] Dr. David Magana Cholesterol in HDL [Mass/Vol] 58 mg/dL Normal 40-60 [facility] Comment on above: Performed By: #### P OCGLUC #### [facility] [address] [place] [address] Dr. David Magana Cholesterol in LDL [Mass/Vol] 129.0 mg/dL Normal [facility] Comment on above: Performed By: #### P OCGLUC #### [facility] [address] [place] [address] Dr. David Magana Cholesterol.total/Cho lesterol in HDL [Mass ratio] 4.0 {ratio} Normal [facility] Comment on above: Performed By: #### P OCGLUC #### [facility] [address] [address] [address] David Magana HDL NORMAL > or = 60 mg/dl - LOW CARDIOVASCULAR RISK <40 mg/dl - HIGH CARDIOVASCULAR RISK Normal [facility] Comment on above: Performed By: #### P OCGLUC #### [facility] [address] [address] [address] David Magana LDL CALC NORMAL SEE BELOW Normal [facility] Comment on above: Result Comment: <100 mg/dl OPTIMAL 100 - 129 mg/dl NEAR OR ABOVE OPTIMAL 130 - 159 mg/dl BORDERLINE HIGH 160 - 189 mg/dl HIGH >190 mg/dl VERY HIGH Performed By: #### P OCGLUC #### [facility] [address] [address] [address] David Magana Triglyceride [Mass/Vol] 235 mg/dL Critically high <=150 [facility] Comment on above: Performed By: #### P OCGLUC #### [facility] [address] [address] [address] David Magana VLDL CALC 47.0 mg/dL Normal [facility] Comment on above: Performed By: #### P OCGLUC #### [facility] [address] [place] [address] Dr. David Magana PROF 14(COMP METB)on 022 Albumin [Mass/Vol] 3.2 g/dL Critically low 3.4-5.0 [facility] Comment on above: Performed By: #### P OCGLUC #### [facility] [address] [address] [address] David Magana Albumin/Globulin [Mass ratio] 0.9 {ratio} Normal [facility] Comment on above: Performed By: #### P OCGLUC #### [facility] [address] [place] [address] Dr. David Magana ALP [Catalytic activity/Vol] 77 U/L Normal 46-116 [facility] Comment on above: Performed By: #### P OCGLUC #### [facility] [address] [place] [address] Dr. David Magana ALT [Catalytic activity/Vol] 24 U/L Normal 16-63 [facility] Comment on above: Performed By: #### P OCGLUC #### [facility] [address] [address] [address] David Magana Anion gap [Moles/Vol] 13.1 mmol/L Normal [facility] Comment on above: Performed By: #### P OCGLUC #### [facility] [address] [address] [address] David Magana AST [Catalytic activity/Vol] 13 U/L Critically low 15-37 [facility] Comment on above: Performed By: #### P OCGLUC #### [facility] [address] [address] [address] David Magana Bilirubin [Mass/Vol] 0.3 mg/dL Normal 0.2-1.0 [facility] Comment on above: Performed By: #### P OCGLUC #### [facility] [address] [address] [address] David Magana Calcium [Mass/Vol] 8.8 mg/dL Normal 8.5-10.1 [facility] Comment on above: Performed By: #### P OCGLUC #### [facility] [address] [place] [address] Dr. David Magana Chloride [Moles/Vol] 106 mmol/L Normal 98-107 [facility] Comment on above: Performed By: #### P OCGLUC #### [facility] [address] [address] [address] David Magana CO2 [Moles/Vol] 27.5 mmol/L Normal 21.0-32.0 [facility] Comment on above: Performed By: #### P OCGLUC #### [facility] [address] [address] [address] David Magana Creatinine [Mass/Vol] 1.62 mg/dL Critically high 0.70-1.30 [facility] Comment on above: Performed By: #### P OCGLUC #### [facility] [address] [address] [address] David Magana EGFR-AF ANDORRAN 50 mL/min/1.73m2 Critically low >=60 [facility] Comment on above: Performed By: #### P OCGLUC #### [facility] [address] [address] [address] David Magana EGFR-NON AF ANDORRAN 41 mL/min/1.73m2 Critically low >=60 [facility] Comment on above: Performed By: #### P OCGLUC #### [facility] [address] [address] [address] David Magana Globulin (S) [Mass/Vol] 3.4 g/dL Normal [facility] Comment on above: Performed By: #### P OCGLUC #### [facility] [address] [address] [address] David Magana Glucose [Mass/Vol] 206 mg/dL Critically high 74-106 [facility] Comment on above: Performed By: #### P OCGLUC #### [facility] [address] [address] [address] David Magana Potassium [Moles/Vol] 4.6 mmol/L Normal 3.5-5.1 [facility] Comment on above: Performed By: #### P OCGLUC #### [facility] [address] [address] [address] David Magana Protein [Mass/Vol] 6.6 g/dL Normal 6.4-8.2 [facility] Comment on above: Performed By: #### P OCGLUC #### [facility] [address] [address] [address] David Magana Sodium [Moles/Vol] 142 mmol/L Normal 136-145 [facility] Comment on above: Performed By: #### P OCGLUC #### [facility] [address] [address] [address] David Magana Urea nitrogen [Mass/Vol] 26.0 mg/dL Critically high 7.0-18.0 [facility] Comment on above: Performed By: #### P OCGLUC #### [facility] [address] [address] [address] David Magana Urea nitrogen/Creatinine [Mass ratio] 16.0 mg/mg Normal [facility] Comment on above: Performed By: #### P OCGLUC #### [facility] [address] [place] [address] Dr. David Magana T4on 04-28-2022 T4 [Mass/Vol] 7.70 ug/dL Normal 4.50-12.10 [facility] Comment on above: Performed By: #### P OCGLUC #### [facility] [address] [place] [address] Dr. David Magana TSHon 04-28-2022 TSH 2.187 uIU/mL Normal 0.358-3.740 [facility] Comment on above: Performed By: #### P OCGLUC #### [facility] [address] [place] [address] Dr. David Magana TSH RANGE SEE BELOW Normal [facility] Comment on above: Result Comment: <0.3 4 UIU/ml HYPERTHYROID 0.34-5.60 UIU/ml EUTHYROID >5.60 UIU/ml HYPOTHYROID Performed By: #### P OCGLUC #### [facility] [address] [place] [address] Dr. David Magana Vital Signs Date Time Vital Sign Value Performing Clinician Facility 08-08-2024 10:25-0400 Blood Pressure Location MARQUIS CAMPBELL [facility] 08-08-2024 10:25-0400 Diastolic blood pressure 82 mm[Hg] MARQUIS CAMPBELL [facility] 08-08-2024 10:25-0400 Systolic blood pressure 140 mm[Hg] MARQUIS CAMPBELL [facility] 10-14-2023 14:33-0500 Diastolic blood pressure 70 mm[Hg] Nereyda Gomez [facility] 10-14-2023 14:33-0500 Mean blood pressure 93 mm[Hg] Neredya Patricia [facility] 10-14-2023 14:33-0500 Systolic blood pressure 138 mm[Hg] Nereyda Patricia [facility] 10-14-2023 14:18-0500 Blood Pressure Location Nereyda Patricia [facility] 10-14-2023 14:18-0500 Body temperature 97.88 [degF] Nereyda Patricia [facility] 10-14-2023 14:18-0500 Diastolic blood pressure 73 mm[Hg] Nereyda Patricia [facility] 10-14-2023 14:18-0500 Heart rate 91 /min Nereyda Patricia [facility] 10-14-2023 14:18-0500 Systolic blood pressure 143 mm[Hg] Nereyda Patricia [facility] 10-01-2023 12:13-0500 Diastolic blood pressure 66 mm[Hg] Nereyda Patricia [facility] 10-01-2023 12:13-0500 Mean blood pressure 104 mm[Hg] Nereyda Patricia [facility] 10-01-2023 12:13-0500 Systolic blood pressure 179 mm[Hg] Nereyda Patricia [facility] 10-01-2023 12:10-0500 Blood Pressure Location Nereyda Patricia [facility] 10-01-2023 12:10-0500 Body temperature 98.42 [degF] Nereyda Patricia [facility] 10-01-2023 12:10-0500 Diastolic blood pressure 77 mm[Hg] Nereyda Patricia [facility] 10-01-2023 12:10-0500 Heart rate 81 /min Nereyda Patricia [facility] 10-01-2023 12:10-0500 Respiratory rate 14 /min Nereyda Patricia [facility] 10-01-2023 12:10-0500 Systolic blood pressure 168 mm[Hg] Nereyda Patricia [facility] 06-10-2023 10:43-0400 Diastolic blood pressure 64 mm[Hg] Nereyda Patricia [facility] 06-10-2023 10:43-0400 Heart rate 76 /min Nereyda Patricia [facility] 06-10-2023 10:43-0400 Respiratory rate 16 /min Nereyda Patricia [facility] 06-10-2023 10:43-0400 SaO2% (BldA) [Mass fraction] 95 % Nereyda Patricia [facility] 06-10-2023 10:43-0400 Systolic blood pressure 121 mm[Hg] Nereyda Patricia [facility] 04-13-2023 14:19-0400 Diastolic blood pressure 70 mm[Hg] Nereyda Patricia [facility] 04-13-2023 14:19-0400 Mean blood pressure 95 mm[Hg] Nereyda Patricia [facility] 04-13-2023 14:19-0400 Systolic blood pressure 146 mm[Hg] Nereydabruce JoyaPatricia [facility] 04-13-2023 14:15-0400 Blood Pressure Location Nereydabruce JoyaPatricia [facility] 04-13-2023 14:15-0400 Body temperature 97.7 [degF] Nereydabruce JoyaPatricia [facility] 04-13-2023 14:15-0400 Diastolic blood pressure 87 mm[Hg] Nereydabruce JoyaPatricia [facility] 04-13-2023 14:15-0400 Heart rate 70 /min Nereyda Joyametz [facility] 04-13-2023 14:15-0400 Systolic blood pressure 150 mm[Hg] Nereydabruce JoyaPatricia [facility] 06-09-2022 10:02-0400 Body temperature 96.98 [degF] Nereyda Joyametz [facility] 06-09-2022 10:02-0400 Diastolic blood pressure 75 mm[Hg] Nereydabruce JoyaPatricia [facility] 06-09-2022 10:02-0400 Heart rate 72 /min Nereydabruce JoyaPatricia [facility] 06-09-2022 10:02-0400 SaO2% (BldA) [Mass fraction] 97 % Nereyda Patricia [facility] 06-09-2022 10:02-0400 Systolic blood pressure 139 mm[Hg] Nereyda Patricia [facility] 05-11-2022 11:30-0400 Diastolic blood pressure 102 mm[Hg] Bender SALAM [facility] 05-11-2022 11:30-0400 Heart rate 86 /min Bender SALAM [facility] 05-11-2022 11:30-0400 Respiratory rate 15 /min Bender SALAM [facility] 05-11-2022 11:30-0400 SaO2% (BldA) [Mass fraction] 95 % Bender SALAM [facility] 05-11-2022 11:30-0400 Systolic blood pressure 172 mm[Hg] Bender SALAM [facility] 05-11-2022 11:15-0400 Diastolic blood pressure 88 mm[Hg] Bender SALAM [facility] 05-11-2022 11:15-0400 Heart rate 86 /min Bender SALAM [facility] 05-11-2022 11:15-0400 Respiratory rate 18 /min Bender SALAM [facility] 05-11-2022 11:15-0400 SaO2% (BldA) [Mass fraction] 97 % Bender SALAM [facility] 05-11-2022 11:15-0400 Systolic blood pressure 170 mm[Hg] Bender SALAM [facility] 05-11-2022 11:10-0400 Diastolic blood pressure 108 mm[Hg] Bender SALAM [facility] 05-11-2022 11:10-0400 Heart rate 85 /min Bender SALAM [facility] 05-11-2022 11:10-0400 Respiratory rate 14 /min Bender SALAM [facility] 05-11-2022 11:10-0400 SaO2% (BldA) [Mass fraction] 97 % Bender SALAM [facility] 05-11-2022 11:10-0400 Systolic blood pressure 157 mm[Hg] Bender SALAM [facility] 05-11-2022 11:02-0400 Body temperature 97.34 [degF] Bender SALAM [facility] 05-11-2022 10:27-0400 Blood Pressure Location Bender SALAM [facility] 05-11-2022 10:23-0400 Blood Pressure Location Bender SALAM [facility] 05-11-2022 10:23-0400 Body temperature 98.24 [degF] Bender SALAM [facility] 03-31-2022 09:53-0400 Blood Pressure Location Nereydabruce JoyaPatricia [facility] 03-31-2022 09:53-0400 Body temperature 97.7 [degF] Nereyda Patricia [facility] 03-31-2022 09:53-0400 Diastolic blood pressure 72 mm[Hg] Nereyda Patricia [facility] 03-31-2022 09:53-0400 Heart rate 73 /min Nereyda Patricia [facility] 03-31-2022 09:53-0400 SaO2% (BldA) [Mass fraction] 96 % Nereyda Gomez [facility] 03-31-2022 09:53-0400 Systolic blood pressure 129 mm[Hg] Nereyda Gomez [facility] Encounters Encounter Date Encounter Type Care Provider Facility Start: 08-17-2024 ambulatory MARQUIS NKANSAH-AMANKRA Facility: [facility] Start: 08-08-2024 End: 08-08-2024 ambulatory MARQUIS NKANSAH-AMANKRA Facility: [place] Start: 08-08-2024 End: 08-08-2024 Patient encounter procedure MARQUIS BLOUNT-AMANKRA [facility] Start: 08-03-2024 End: 08-03-2024 ambulatory ROBINSON A BROWN Not Available Start: 08-01-2024 End: 08-01-2024 ambulatory BARRIE BRASWELL Not Available Start: 07-20-2024 End: 07-20-2024 ambulatory ROBINSON A BROWN Not Available Start: 07-06-2024 End: 07-06-2024 ambulatory ROBINSON A BROWN Not Available Start: 07-05-2024 End: 07-05-2024 ambulatory JEFF [facility] Start: 06-07-2024 End: 06-07-2024 ambulatory [address] [facility] Start: 06-05-2024 End: 06-05-2024 ambulatory [facility] Start: 06-01-2024 End: 06-01-2024 ambulatory ROBINSON A BROWN Not Available Start: 04-20-2024 End: 04-20-2024 ambulatory ROBINSON A BROWN Not Available Start: 03-03-2024 End: 03-03-2024 ambulatory [facility] Start: 02-10-2024 End: 02-10-2024 ambulatory ROBINSON Cara AIVVA Not Available Start: 02-02-2024 ambulatory Nereyda A Patricia Facili ty:[facility] Start: 01-11-2024 End: 01-11-2024 ambulatory BARRIE BRASWELL Not Available Start: 12-09-2023 ambulatory Nereyda A Patricia Facili ty:[facility] Start: 12-02-2023 End: 12-02-2023 ambulatory ROBINSON A AVIVA Not Available Start: 11-17-2023 End: 11-17-2023 ambulatory [facility] Start: 10-14-2023 End: 10-14-2023 ambulatory Nereyda A Patricia [facility] Start: 10-14-2023 End: 10-14-2023 Patient encounter procedure Nereyda A Patricia [facility] Start: 10-01-2023 End: 10-01-2023 ambulatory Nereyda A Patricia Facility[facility] Start: 10-01-2023 End: 10-01-2023 Patient encounter procedure Nereyda A Patricia [facility] Start: 10-01-2023 End: 10-01-2023 ambulatory Nereyda A Patricia Facility:[facility] Start: 10-01-2023 End: 10-01-2023 Patient encounter procedure Nereyda A Patricia [facility] Start: 09-17-2023 End: 09-17-2023 ambulatory [facility] Start: 09-13-2023 End: 09-13-2023 ambulatory Nereyda A Patricia Facility[facility] Start: 09-13-2023 End: 09-13-2023 Patient encounter procedure Nereyda A Patricia [facility] Start: 08-31-2023 End: 08-31-2023 ambulatory [facility] Start: 07-21-2023 End: 07-21-2023 ambulatory [facility] Start: 06-10-2023 End: 06-10-2023 Patient encounter procedure Nereyda Gomez [facility] Start: 04-15-2023 End: 04-15-2023 Lab Drop off Nereyda Gomez [facility] Start: 04-13-2023 End: 04-13-2023 Patient encounter procedure Nereyda Gomez [facility] Start: 03-24-2023 End: 03-25-2023 [...] End: 06-09-2022 Patient encounter procedure Nereyda Gomez [facility] Start: 06-08-2022 End: 06-09-2022 ambulatory GAMALIEL DALEY Facility:[facility] Start: 05-11-2022 End: 05-11-2022 Patient encounter procedure Bender AVTAR [facility] Start: 04-28-2022 End: 04-29-[address] VAN SUNG . Facility:[facility] Start: 03-31-2022 End: 03-31-2022 Patient encounter procedure Nereyda Gomez [facility] Start: 2019 End: 02-07-2019 [...] Provider Fa cility 10-21-2022 SARS-CoV-2 (COVID-19 ) [id number] Nereyda Donatoz [facility] Comment on above: Result Comment: 2022: [id number] 08-26-2021 SARS-CoV-2 (COVID-19 ) mRNA BNT-162b2 vax Nereyda Donatoz [facility] 01-01-2021 SARS-CoV-2 (COVID-19 ) mRNA BNT-162b2 vax Nereyda Gomez [facility] 12-09-2020 SARS-CoV-2 (COVID-19 ) mRNA BNT-162b2 vax Nereyda Gomez [facility] 08-27-2020 influenza virus vaccine, unspecified formulation Nereyda Gomez [facility] 08-16-2017 pneumococcal conjugate vaccine, 13 valent Nereyda Gomez [facility] 08-05-2017 influenza, unspecified formulation Nereyda Gomez [facility] 09-20-2015 zoster vaccine, live [facility] NEGATED: Highlighted row has not occurred!10-13-2023 influenza virus vaccine, unspecified formulation Nereyda Gomez [facility] NEGATED: Highlighted row has not occurred!09-29-2023 influenza virus vaccine, unspecified formulation Nereyda Gomez [facility] Payers Date Payer Category Payer Unknown [id number] 1960 Medicare [id number] 1940 Unknown [id number] 2.16.8 40.1.648254.3.579.2.647 1940 Unknown [id number] 2.16.84 0.1.107621.3.579.2.593 1940 Unknown [id number] 2.16.84 0.1.170549.3.579.2.593 1939 Unknown [id number] 2.16.84 0.1.253467.3.579.2.593 1939 Unknown [id number] 2.16.84 0.1.900880.3.579.2.593 1939 Unknown [id number] 2.16.84 0.1.864625.3.579.2.593 1939 Unknown [id number] 2.16.84 0.1.922772.3.579.2.593 1939 Unknown [id number] 2.16.84 0.1.656535.3.579.2.593 1939 Unknown [id number] 2.16.84 0.1.927907.3.579.2.593 1939 Unknown [id number] 2.16.84 0.1.782014.3.579.2.593 1939 Unknown [id number] 2.16.84 0.1.274599.3.579.2.593 1939 Unknown [id number] 2.16.84 0.1.952959.3.579.2.593 1939 Unknown [id number] 2.16.84 0.1.558863.3.579.2.1259 1939 Unknown [id number] 2.16.84 0.1.742962.3.579.2.1259 1939 Unknown [id number] 2.16.84 0.1.534740.3.579.2.1259 1939 Unknown [id number] 2.16.84 0.1.754660.3.579.2.1259 1939 Unknown [id number] 2.16.84 0.1.272262.3.579.2.1259 1939 Unknown [id number] 2.16.84 0.1.536109.3.579.2.1259 1939 Unknown [id number] 2.16.84 0.1.307167.3.579.2.1259 1939 Unknown [id number] 2.16.84 0.1.342749.3.579.2.1259 1939 Unknown [id number] 2.16.84 0.1.339143.3.579.2.1259 1939 Unknown [id number] 2.16.8 40.1.771780.3.579.2.727 1939 Unknown [id number] 2.16.8 40.1.075990.3.579.2.727 1939 Unknown [id number] 2.16.8 40.1.240122.3.579.2.727 1939 Unknown [id number] 2.16.8 40.1.088482.3.579.2.727 1939 Unknown [id number] 2.16.8 40.1.577189.3.579.2.727 1939 Unknown [id number] 2.16.8 40.1.246555.3.579.2.727 1939 Unknown [id number] 2.16.8 40.1.173090.3.579.2.727 1939 Unknown [id number] 2.16.8 40.1.975035.3.579.2.727 Unknown Social History Date Type Detail Facility Start: 03-31-2022 End: 08-08-2024 Tobacco smoking status Ex-smoker (finding) [facility] Tobacco smoking status Never [facility] Sex Assigned At Male [facility] Functional Status Date Assessment Result Facility 08-08-2024 Functional Status N/A [facility] [place] 10-14-2023 Functional Status N/A [facility] 10-01-2023 Functional Status No [facility] 04-13-2023 Functional Status N/A [facility] 06-09-2022 Functional Status N/A [facility] 05-11-2022 Functional Status N/A [facility] Clinical Notes 03-31-2022 to 08-08-2024 Laboratory [...] including vitamins, herbs, eye drops, creams, and ebqs-evj-bdpguiu medicines. Any problems you or family members [...] provider tells you to take them. Taking hadm-lne-fcxmoib medicines, vitamins, herbs, and supplements. Tests You [...] Follow these instructions at home: Medicines Take lsqk-ybd-dkhjedc and prescription medicines only as told by [...] provider. Document Revised: 07/15/2022 Document Reviewed: 06/13/2021 [email or web address] Patient Education 2023 [employer]. Follow Up Care 08/07/2024 08:55:26 With:MARQUIS CAMPBELL MD, URL Address: When: Unknown [facility] 08-08-2024 Note Patient Education Urology Cystoscopy Cystoscopy [...] including vitamins, herbs, eye drops, creams, and llfv-nty-vmrfkkx medicines. ? Any problems you or family [...] tells you to take them. ? Taking hnuq-cix-drbvddc medicines, vitamins, herbs, and supplements. Tests You [...] these instructions at home: Medicines ? Take boxl-kee-jdfdrlh and prescription medicines only as told by [...] health care provider, (more content not included)... [facility] 07-05-2024 Note [facility] Patient: Nadir Heredia; 84 y.o. Visit date: 07/05/24 Reason for today's visit: Follow up for CKD stage 3, Hypertension, Edema/ Fluid overload, and Electrolytes disturbances SUBJECTIVE: BACKGROUND: Nadir Heredia is a 84 y.o. male has a past medical history of Atrial fibrillation ([facility]), CHF (congestive heart failure) ([facility]), Chronic kidney disease, COPD (chronic obstructive pulmonary disease) ([facility]), Coronary artery disease, Diabetes mellitus ([facility]), Heart valve disease, Hypertension, Pericardial effusion, and Sleep apnea. History of paroxysmal atrial fibrillation maintained on anticoagulation with Eliquis, aortic stenosis, renal artery stenosis, and hypertension. He had stenting of the left renal artery from the left radial approach on 05/01/2015 (Express SD 6 mm x 18 mm stent). He was admitted to the [facility] in August 2022 due to hyponatremia, [...] or chew. p (more content not included)... [facility] 06-07-2024 Note Attestation signed by Ruthie Linda MD at 06/07/2024 7:40 PM I saw, interviewed, examined and evaluated the patient with Nephrology fellow Dr. Jeff Reyes. I participated in the medical management of the patient. I reviewed the fellow's note and agree with the fellow's documentation in the note. Ruthie Linda MD Faculty, Division of Nephrology, Department of Medicine, [facility]. [facility] Patient: Nadir Heredia; 84 y.o. Visit date: 06/07/24 Reason for today's visit: Follow up for CKD stage 3, Hypertension, Edema/ Fluid overload, and Electrolytes disturbances SUBJECTIVE: BACKGROUND: Nadir Heredia is a 84 y.o. male has a past medical history of Atrial fibrillation ([facility]), CHF (congestive heart failure) ([facility]/HCC), Chronic kidney disease, COPD (chronic obstructive pulmonary disease) ([facility]), Coronary artery disease, Diabetes mellitus ([facility]), Heart valve disease, Hypertension, Pericardial effusion, and Sleep apnea. History of paroxysmal atrial fibrillation maintained on anticoagulation with Eliquis, aortic stenosis, renal artery stenosis, and hypertension. He had stenting of the left renal artery from the left radial approach on 05/01/2015 (Express SD 6 mm x 18 mm stent). He was admitted to the [facility] in August 2022 due to hyponatremia, [...] (Vitamin D3) 25 (more content not included)... [facility] 06-05-2024 Note PR Cardiology - [facility] Subjective Nadir Heredia is a [...] diuretic therapy. He was admitted to the [facility] in August 2022 due to hyponatremia, hyperkalemia and acute kidney injury, leukocytosis secondary to COVID-19 causing dehydration. I saw him on 05/24/2023 and the office and he had significant evidence of volume overload by exam and echocardiogram. I intensified his diuretic regimen. He ended up getting admitted to the [facility] with acute heart failure exacerbation and [...] and 2+ o (more content not included)... [facility] 03-03-2024 Note PR Cardiology - [facility] Subjective Nadir Heredia is a [...] extremity edema. He was admitted to the [facility] in August 2022 due to hyponatremia, hyperkalemia and acute kidney injury, leukocytosis secondary to COVID-19 causing dehydration. I saw him on 05/24/2023 and the office and he had significant evidence of volume overload by exam and echocardiogram. I intensified his diuretic regimen. He ended up getting admitted to the [facility] with acute heart failure exacerbation and [...] Musculoskeletal: General: N (more content not included)... [facility] 11-17-2023 Note Attestation signed by Ruthie Linda MD at 11/21/2023 6:55 PM I saw, interviewed, examined and evaluated the patient with Nephrology fellow, Dr. Dana Aparicio. I participated in the medical management of the patient. I reviewed the fellow's note and agree with the fellow's documentation in the note. Ruthie Linda MD Faculty, Division of Nephrology, Department of Medicine, [facility]. [facility] Patient: Nadir Heredia; 83 y.o. Visit date: 11/17/23 Reason for today's visit: Follow up for CKD stage 3, Hypertension, Edema/ Fluid overload, and Electrolytes disturbances SUBJECTIVE: BACKGROUND: Nadir Heredia is a 83 y.o. male has a past medical history of Atrial fibrillation ([facility]), CHF (congestive heart failure) ([facility]), Chronic kidney disease, COPD (chronic obstructive pulmonary disease) ([facility]), Coronary artery disease, Diabetes mellitus ([facility]), Heart valve disease, Hypertension, Pericardial effusion, and Sleep apnea. History of paroxysmal atrial fibrillation maintained on anticoagulation with Eliquis, aortic stenosis, renal artery stenosis, and hypertension. He had stenting of the left renal artery from the left radial approach on 05/01/2015 (Express SD 6 mm x 18 mm stent). He was admitted to the [facility] in August 2022 due to hyponatremia, [...] place, and time (more content not included)... [facility] 10-14-2023 Hospital Discharge instructions Patient Education [...] as fried or sweet foods. These include chinese fries, hamburgers, cookies, candies, and soda. Drink enough fluid to keep your urine pale yellow. General instructions Exercise regularly or as told by your health care provider. Try to do 150 minutes of moderate exercise each week. Use the bathroom when you have the urge to go. Do not hold it in. Take qdfk-pet-gbzzltv and prescription medicines only as told by [...] to keep your urine pale yellow. Take oxlf-crd-wfkyili and prescription medicines only as told by your health care provider. This includes any fiber supplements. This information is not intended to replace advice given to you by your health care provider. Make sure you discuss any questions you have with your health care provider. Document Revised: 09/18/2020 Document Reviewed: 09/18/2020 [email or web address] Patient Education 2022 [employer]. Follow Up Care 10/01/2023 12:57:46 With:Nereyda Gomez CNP Address: When:1 month [facility] 10-01-2023 Hospital Discharge instructions [...] [place] wafer crackers. Meats and other proteins Vanleer beans, kidney beans, and mendez beans. Soybeans. [...] Cream cheese. Sour cream. Fats and oils [place]. Beverages Soft drinks. Other foods Cakes and [...] provider. Document Revised: 03/06/2021 Document Reviewed: 03/06/2021 [email or web address] Patient Education 2022 [employer]. Follow Up Care 09/20/2023 08:43:45 With:Nereyda Gomez CNP Address:Unknown When: Unknown [facility] 10-01-2023 Evaluation + Plan note Future Scheduled TestsCBC w/ Auto Diff 10/01/23Comprehensive Metabolic Panel 10/01/23Thyroid Stimulating Hormone 10/01/23 [facility] 09-17-2023 Note PR Cardiology - [facility] Subjective Nadir Heredia is a [...] extremity edema. He was admitted to the [facility] in August 2022 due to hyponatremia, hyperkalemia and acute kidney injury, leukocytosis secondary to COVID-19 causing dehydration. I saw him on 05/24/2023 and the office and he had significant evidence of volume overload by exam and echocardiogram. I intensified his diuretic regimen. He ended up getting admitted to the [facility] with acute heart failure exacerbation and [...] Allergies Allergen Reactions Iodinated Contrast Media Nitroglycerin Vlievxr-Hbj-Cfp Reductase Inhibitors Medications Current Outpatient Medications: (more content not included)... [facility] 08-31-2023 Note Patient: Nadir lin Procedure [...] discussed with patient who. Additional Equipment Requests [facility] 07-21-2023 Note PR Cardiology - [facility] Subjective Nadir Heredia is a 83 y.o. year old male patient being seen for Follow-up Patient Active Problem List Diagnosis Aortic valve disorder Atherosclerosis of renal artery (CMS/HCC) Chronic atrial fibrillation ([facility]/HCC) Coronary arteriosclerosis Bradycardia Aortic valve stenosis [...] extremity edema. He was admitted to the [facility] in August 2022 due to hyponatremia, hyperkalemia and acute kidney injury, leukocytosis secondary to COVID-19 causing dehydration. I saw him on 05/24/2023 and the office and he had significant evidence of volume overload by exam and echocardiogram. I intensified his diuretic regimen. He ended up getting admitted to the [facility] with acute heart failure exacerbation and [...] Allergies Allergen Reactions Iodinated Contrast Media Nitroglycerin Uvjsoah-Jki-Yfv Reductase Inhibitors Medications Current Outpatient Medications: acyclovir [...] every day by (more content not included)... [facility] 06-10-2023 Hospital Discharge instructions Patient Education [...] hard liquor (44 mL). General instructions Take vbmx-wog-xegrism and prescription medicines only as told by [...] provider. Document Revised: 02/19/2021 Document Reviewed: 02/19/2021 [email or web address] Patient Education 2022 [employer]. Follow Up Care 04/13/2023 14:39:27 With:Nereyda Gomez CNP Address: When:3 months [facility] 04-13-2023 Hospital Discharge instructions [...] including vitamins, herbs, eye drops, creams, and brcx-gkz-xbyzace medicines. Any problems you or family members [...] provider tells you to take them. Taking vidm-owf-vgatlvo medicines, vitamins, herbs, and supplements. General instructions [...] provider. Document Revised: 10/26/2022 Document Reviewed: 06/24/2022 [email or web address] Patient Education 2022 [employer]. Follow Up Care 04/09/2023 11:27:16 With:Nereyda Gomez CNP Address: When:1 month [facility] 07-18-2022 Note EXAM: US [...] authenticated by: LI ROBERTS Date: 2022-07-18 09:05 [facility] 06-09-2022 Hospital Discharge instructions Patient Education [...] per serving. Talk with a diet and nutritional chemist (dietitian) if you have questions about specific [...] [place] wafer crackers. Meats and other proteins Vanleer, kidney, and mendez beans. Soybeans. Split peas. [...] Cream cheese. Sour cream. Fats and oils [place]. Beverages Soft drinks. Other foods Cakes and [...] 11/01/2006 Document Revised: 09/05/2018 Document Reviewed: 09/05/2018 [email or web address] Patient Education 2020 [employer]. 06/09/2022 10:13:34 Hemorrhoids Hemorrhoids Hemorrhoids are swollen [...] 3 times a day. General instructions Take rvyj-gqv-urbroac and prescription medicines only as told by [...] 10/29/2001 Document Revised: 03/29/2020 Document Reviewed: 03/23/2019 [email or web address] Patient Education 2020 [employer]. 06/09/2022 10:13:31 Diverticulosis Diverticulosis Diverticulosis is a [...] overweight. Not getting enough exercise. Smoking. Taking hprr-hpl-xnbiuos pain medicines, like aspirin and ibuprofen. Having [...] health care provider or your diet and nutritional chemist (dietitian). ?Take a fiber supplement or probiotic, if your health care provider approves. Take lmfg-xyz-idzwkwv and prescription medicines only as told by [...] 07/29/2005 Document Revised: 10/14/2018 Document Reviewed: 09/20/2017 [email or web address] Patient Education 2020 [email or web address] 06/09/2022 10:13:30 Colon Polyps Colon Polyps [...] 07/28/2005 Document Revised: 02/16/2019 Document Reviewed: 02/16/2019 [email or web address] Patient Education 2020 [employer]. Follow Up Care 05/13/2022 14:18:17 With:Nereyda Gomez CNP Address: When:1 year only if needed [facility] 05-11-2022 Evaluation + Plan note Extrac fernando from: Title:Anesthesia post op endo Author:Jeffrey Gr MD Date:05/11/22 Plan Transfer/ Discharge: Patient can be discharged from PACU when criteria met. Condition good. Extracted from: Title:Anesthesia Pre-Op endo 2 Author:Jeffrey Gr MD Date:05/11/22 Plan [place] [employer] Anesthesiologists (ASA) physical status classification: [...] heart and lungs, allergic reactions, and .. [facility]06-27-2022 Hospital Discharge instructions Patient Education 05/11/2022 [...] 07/28/2005 Document Revised: 02/16/2019 Document Reviewed: 02/16/2019 [email or web address] Patient Education 2020 [employer]. 05/11/2022 11:13:39 Diverticulosis MAGR (CUSTOM) Diverticulosis Many [...] unsweetened, w/added ascorbic acid 1 cup 0.5 [place] 1 cup 0.7 Vegetables Cooked Green beans 1 cup 4.0 Carrots 1/2 cup sliced 2.3 Peas 1 cup 8.8 Potato (baked, with skin) 1 medium potato 3.8 Raw [place] (with peel) 1 cucumber 1.5 Lettuce 1 [...] 8.7 Peanuts 1/2 cup 7.9 Chart from [facility] 2013. SEEK IMMEDIATE MEDICAL CARE [...] Nutrient Database for Standard Reference. Available at http://www.[facility].usda.gov/fnic/foodcomp/search/. Information adapted from: [facility] Patient Information 2009 [employer]. [facility] Hospital[facility] 2012 http://www.[email or web address]/nckghkopoioh-yaxhyfv-zgnson-the-basics Follow Up Care 03/31/2022 10:27:32 With:Napoleon MENDEZ Address: [address] [place] [address] Business (1) When: Unknown Comments:office will call for follow up [facility]05-17-2022 Hospital Discharge instructions Patient Education 03/31/2022 [...] including vitamins, herbs, eye drops, creams, and yofv-bas-iwryebh medicines. Any problems you or family members [...] 10/29/2001 Document Revised: 08/24/2018 Document Reviewed: 01/12/2017 [email or web address] Patient Education [employer]. Follow Up Care 03/23/2022 12:11:50 With:Nereyda Gomez CNP Address: When:1 month [facility] evaluation + Plan note Future Appointments Appointment Date:05/25/2022 08:45:00 AM Scheduled Provider: Location:[facility] Appointment Type:Surgery FT [facility] Evaluation + Plan note Future Appointments Appointment Date:06/10/2023 10:40:00 AM Scheduled Provider:Nereyda Gomez CNP Location:[facility] Appointment Type:[facility] Follow Up Future Scheduled Tests Laboratory* Fecal WBC Lactoferrin 04/13/23 * Giardia lamblia, Direct Detection EIA 04/13/23 * O & P Exam, Routine 04/13/23 * Clostridium Difficile PCR 04/13/23 * Enteric Panel by PCR 04/13/23 [facility] Evaluation + Plan note Future Appointments Appointment Date:06/10/2023 10:40:00 AM Scheduled Provider:Nereyda Gomez CNP Location:[facility] Appointment Type:[facility] Follow Up Diagnostic Tests Pending * O & P Exam, Routine 04/15/23 * Giardia lamblia, Direct Detection EIA [facility]23 [facility]ments Appointment Date:09/13/2023 10:40:00 AM Scheduled Provider:Nereyda Gomez CNP Location:[facility] Appointment Type:[facility] Follow Up [facility] evaluation + Plan note Future Appointments Appointment Date:10/14/2023 02:20:00 PM Scheduled Provider:Nereyda Gomez CNP Location:[facility] Appointment Type:[facility] Follow Up Future Scheduled Tests Laboratory* CBC w/ Auto Diff 10/01/23 * Comprehensive Metabolic Panel 10/01/23 * Thyroid Stimulating Hormone 10/01/23 [facility] Evaluation + Plan note Future Appointments Appointment Date:12/09/2023 02:00:00 PM Scheduled Provider:Nereyda Gomez CNP Location:[facility] Appointment Type:[facility] Follow Up Future Scheduled Tests Laboratory* CBC w/ Auto Diff 10/01/23 * Comprehensive Metabolic Panel 10/01/23 * Thyroid Stimulating Hormone 10/01/23 [facility] Hospital course Narrative No data available for this section [facility] Hospital Discharge instructions No data available for this section [facility] data available for this section [facility] Summary Purpose Family History No Family [...] section and content) DATE CREATED AUTHOR 02/09/2019 [facility] DATE CREATED AUTHOR AUTHOR'S ORGANIZ ATION 03/28/2023 [facility] DATE CREATED AUTHOR AUTHOR'S ORGANIZ ATION 07/12/2024 [facility] DATE CREATED AUTHOR AUTHOR'S ORGANIZ ATION 08/05/2024 [facility] DATE CREATED AUTHOR AUTHOR'S ORGANIZ ATION 08/14/2024 Nick Collier [facility] Care Team (unrecognized sect ion and content) Personnel Name: Van Sung MD Address: [address] [place], [place] [address], [place] [address] [place] Personnel Name: Van Sung MD Address: [address] [place], [place] [address], [place] [address] [place] Personnel Name: Van Sung MD Address: Address: [address] [place] [address] [place] [address]- [place] Personnel Name: Van Sung MD Address: Address: [address] [place], [place] [address], [place] [address]- [place] Personnel Name: Van Sung MD Address: Address: [address] [place] [address] [address]- [place] Personnel Name: Van Sung MD Address: Address: [address] [place] [address] [address]- [place] Personnel Name: Van Sung MD Address: Address: [address] [place], [place] [address], [place] [address]- [place] Personnel Name: Van Sung MD Address: Address: [address] [place] [address] [place] [address]- [place] Personnel Name: Van Sung MD Address: Address: [address] [place], [place] [address], [place] [address]- [place] Personnel Name: Van Sung MD Address: Address: [address] [place], [place] [address], [place] [address]- [place] Personnel Name: Van Sung MD Address: Address: [address] [place] [address], [place] [address]- [place] FOR RECORDS PERTAINING TO PATIENTS WHO [...] BE BASED ON THE PRIMARY CLINICAL RECORDS. [employer] [facility]. provides no warranty or guarantee of the accuracy or completeness of information in this document.
[2024-08-16 11:28] LABS: Glucometer 299 mg/dL (74-106)
[2024-08-16 13:34] LABS: Ammonia <10 umol/L (11-32)
[2024-08-16] MEDS: ACETAMINOPHEN 500 MG TABLET 1000 MG PO (13:41)
[2024-08-16] MEDS: 0.9 % SODIUM CHLORIDE 250 ML 10 ML IV (13:41)
[2024-08-16] MEDS: CEFTRIAXONE 1,000 MG in 0.9 % SODIUM CHLORIDE 50 ML 100 MG IV (13:41)
[2024-08-16] MEDS: HYDRALAZINE HCL 20 MG/ML VIAL 10 MG IVP (13:45)
[2024-08-16] MEDS: LACTATED RINGER'S SOLUTION 1,000 ML 50 ML IV (13:52)
[2024-08-16 14:19] LABS: ABG PCO2 38.3 mmHg (35.0-45.0); Allen Test POSITIVE (POSITIVE); Base Excess ABG 2.7 mmol/L (-2.0-2.0); HCO3 ABG 26.7 mmol/L (22.0-26.0); Oxygen Saturation ABG 94.8 %; PO2 ABG 72.2 mmHg (80.0-100.0); pH ABG 7.451 (7.350-7.450)
[2024-08-16 14:20] LABS: O2 Mode RA; Puncture Site LR
[2024-08-16] MEDS: AZITHROMYCIN 500 MG in 0.9 % SODIUM CHLORIDE 250 ML 250 MG IV (14:45)
--- NOTE | 2024-08-16 15:20 | SWNOTE1 ---
SW met with pt to discuss dc needs. Pt's in room as well. Pt voiced he is feeling better, and voiced he is acting more like himself. Pt stated he does not use any DME at home and is independent, just slow. Pt has no anticipated discharge needs at this time. SW to follow as needed. Medicare Outpatient Observation Notice reviewed and discussed with patient. Pt. verbalized understanding and signed the form. Original given to patient and copy placed in patient?s chart.
--- NOTE | 2024-08-16 15:23 | SWNOTE1 ---
SW reviewed physical therapy note and no needs identified at this time.
--- NOTE | 2024-08-16 15:23 | SWNOTE1 ---
SW was also consulted in regards to Advanced Directives. SW did ask pt and if they have completed power of apartment community assistant manager paperwork and voiced that they have. They do not need any information in regards to Advanced Directives.
[2024-08-16 16:16] LABS: Glucometer 269 mg/dL (74-106)
[2024-08-16] MEDS: INSULIN ASPART 300 UNIT/3 ML PEN SUBQ (17:12)
[2024-08-16] MEDS: OMEPRAZOLE 20 MG CAPSULE.DR 40 MG PO (17:12)
--- NOTE | 2024-08-16 18:55 | P.HP_ITS ---
HPI H&P: HPI History of Present Illness Chief complaint: ALTERED MENTAL STATUS/LETHARGY/SPEECH DIFFICULTY Narrative: Patient has had some change in his mental status lately, his primidone was increased, significantly by his neurologist. They had a call out to his neurologist but has not heard back yet this morning he seemed much worse. Only other complaint was a mild cough. In ER patient found to have right lower lobe infiltrate, altered mental status with some slurred speech, no focal neurological deficits. Uncontrolled high blood pressure. Patient was admitted for workup and treatment of same When I saw patient up on the medical surgical floor he was, he was resting comfo rtably, his does state he is improved but not quite back to baseline yet Opioid HPI Opioid Management Most Recent Pain and Opioid Data: Last Pain Scale 5 08/16/24 14:51 Last Pain Assessment 08/16/24 18:14 Last MAR Pain Assessment 08/16/24 14:50 Last ORT Total Score 0 08/16/24 10:57 Last ORT Risk Category Low Risk 08/16/24 10:57 Review of Systems ROS Status of ROS 10 or more systems reviewed and unremark able except as noted in history and below [facility] Medical History (Updated 08/16/24 @ 13:23 by Ciarra Villalta RN) Heart failure ?I50.9 - Heart failure, unspecified (ICD-10) Neuropathy ?G62.9 - Polyneuropathy, unspecified (ICD-10) Occasional tremors ?R25.1 - Tremor, unspecified (ICD-10) History of diverticulosis ?Z87.19 - Personal history of other diseases of the digestive system (ICD-10) History of sleep apnea ?Z86.69 - Personal history of other diseases of the nervous system and sense organs (ICD-10) Diabetes ?E11.9 - Type 2 diabetes mellitus without complications (ICD-10) History of hypertension ?Z86.79 - Personal history of other diseases of the circulatory system (ICD- 10) History of gastroesophageal reflux (GERD) ?Z87.19 - Personal history of other diseases of the digestive system (ICD-10) History of asthma ?Z87.09 - Personal history of other diseases of the respiratory system (ICD- 10) Surgical History (Updated 10/10/23 @ 08:33 by Oscar Jewell) History of cardiac catheterization ?Z98.890 - Other specified postprocedural states (ICD-10) History of cholecystectomy ?Z90.49 - Acquired absence of other specified parts of digestive tract (ICD- 10) Family History (Updated 08/16/24 @ 11:04 by Ciarra Villalta RN) Father Family history of myocardial infarction Family history of CHF (congestive heart failure) Family history of hypertension Mother Family history of cancer Grandmother Family history of diabetes mellitus Social History (Updated 08/16/24 @ 11:05 by Ciarra Villalta RN) Within the past year, how often did you have a drink containing alcohol: 2-4 times a month Smoking status: Former smoker Non-prescribed substance use: denies use Highest level of school completed/degree received: 9th grade Little interest or pleasure in doing things: not at all Feeling down, depressed, or hopeless: several days Meds Home Medications and Allergies Home Medications ?Medication ?Instructions ?Recorded ?Confirmed ?Type ACETAMINOPHEN PM 1 tab PO BEDTIME 05/31/23 08/16/24 History Vitamin B-Complex 1 tab PO .NOON 05/31/23 08/16/24 History acyclovir 400 mg tablet 400 mg PO Q12H 05/31/23 08/16/24 History alogliptin 25 mg tablet 25 mg PO DAILY 05/31/23 08/16/24 History apixaban 2.5 mg tablet 2.5 mg PO BID 05/31/23 08/16/24 History aspirin 81 mg tablet,delayed 81 mg PO DAILY 05/31/23 08/16/24 History release (Adult Low Dose Aspirin) cholecalciferol (vitamin D3) 50 2,000 unit PO DAILY 05/31/23 08/16/24 History mcg (2,000 unit) tablet (Thera-D) clonidine HCl 0.1 mg tablet 0.1 mg PO Q12H 05/31/23 08/16/24 History dicyclomine 10 mg capsule 10 mg PO QID PRN abdominal pain 05/31/23 08/16/24 History empagliflozin 25 mg tablet 25 mg PO DAILY 05/31/23 08/16/24 History (Jardiance) ezetimibe 10 mg tablet 10 mg PO DAILY 05/31/23 08/16/24 History ferrous sulfate 325 mg (65 mg 325 mg PO BID 05/31/23 08/16/24 History iron) tablet furosemide 40 mg tablet 40 mg PO Q12H 05/31/23 08/16/24 History glimepiride 4 mg tablet 8 mg PO DAILY 05/31/23 08/16/24 History labetalol 300 mg tablet 300 mg PO Q12H 05/31/23 08/16/24 History magnesium See Rx Instructions PO BID 05/31/23 08/16/24 History metoclopramide HCl 5 mg tablet 5 mg PO BEDTIME 05/31/23 08/16/24 History tamsulosin 0.4 mg capsule 0.4 mg PO Q24H 05/31/23 08/16/24 History alprazolam 0.25 mg tablet 0.25 mg PO BID 08/16/24 08/16/24 History dextromethorphan-guaifenesin 30 1 tab PO Q12H 08/16/24 08/16/24 History mg-600 mg tablet extended [id number] hr duloxetine 20 mg capsule,delayed 20 mg PO .QD 08/16/24 08/16/24 History release escitalopram oxalate 5 mg tablet 5 mg PO .QD 08/16/24 08/16/24 History pioglitazone 45 mg tablet (Actos) 45 mg PO DAILY 08/16/24 08/16/24 History potassium chloride 20 mEq 40 meq PO .QD 08/16/24 08/16/24 History tablet,extended release(part/cryst) primidone 250 mg tablet 250 mg PO .QHS 08/16/24 08/16/24 History Allergies Allergy/AdvReac Type Severity Reaction Status Date / Time nitroglycerin Allergy Intermediate Hypotension Verified 08/06/24 10:42 Iodinated Contrast Media AdvReac Intermediate renal Verified 08/06/24 10:42 problem Exam Constitutional Vital Signs, click to edit/add: Last Vital Signs Temp 98.1 F 08/16/24 16:35 Pulse 80 08/16/24 17:53 Resp 18 08/16/24 16:35 BP 160/73 H 08/16/24 16:35 Pulse Ox 92 L 08/16/24 16:35 O2 Del Method Room Air 08/16/24 16:35 Documenting provider has reviewed patient's vital signs: yes Common normals: no apparent distress Chest Common normals: inspection of chest normal Respiratory Common normals: normal respiratory effort (Some cough during the exam) and no retractions Effort & inspection: able to speak in complete sentences; non tachypneic and no respiratory distress Auscultation: rhonchi and diminished lung sounds Cardio Common normals: regular rate and regular rhythm GI Common normals: Normal to inspection, nondistended, normoactive bowel sounds present and soft to palpation Extremity Common normals: normal to inspection, normal capillary refill and no clubbing, cyanosis or edema Results Labs Labs: Short CBC 08/16/24 Range/Units 09:00 WBC 9.6 (4.0-11.0) 10^3/uL Hgb 15.7 (14.0-18.0) g/dL Hct 47.8 (42.0-54.0) % Plt Count 193 (150-450) 10^3/uL BMP 08/16/24 09:00 Sodium 138 Potassium 4.1 Chloride 101 Carbon Dioxide 26.9 BUN 25.0 H Creatinine 1.71 H Glucose 338 H Calcium 9.4 Liver Function 08/16/24 Range/Units 09:00 Total Bilirubin 0.6 (0.2-1.0) mg/dL AST 15 (15-37) U/L ALT 26 (16-63) U/L Alkaline Phosphatase 108 (46-116) U/L Albumin 3.5 (3.4-5.0) g/dL Urine 08/16/24 Range/Units 09:54 Urine Color Lt. yellow (YELLOW) Urine Clarity Clear (CLEAR) Urine pH 7.0 (5.0-9.0) Ur Specific [place] 1.010 (1.005-1.025) Urine Protein Negative (NEG/TRACE) mg/dL Urine Glucose (UA) >=1000 A (NEGATIVE) mg/dL ABG ABG results: 08/16/24 14:10 ABG pH 7.451 H ABG pCO2 38.3 ABG pO2 72.2 L ABG HCO3 26.7 H ABG O2 Saturation 94.8 ABG Base Excess 2.7 H Assessment and Plan Assessment and Plan (1) Lethargy: (2) Difficulty with speech: (3) AMS (altered mental status): (4) Balanitis: (5) Pulmonary edema: (6) Dyspnea: (7) Congestive heart failure: Plan Admission findings: Altered mental status, uncontrolled high blood pressure, right lower lobe infiltrate Right lower lobe infiltrate leading to altered mental status-as needed aerosol treatments, IV antibiotics. Consider repeat chest x-ray. Altered mental status also possibly related to change in primidone will hold primidone dose completely. He was taking primidone for essential tremor NIDDM-insulin sliding scale Hypertension-continue with home medications Depression and anxiety-continue with home medications Chronic combined congestive heart failure-continue with home medications Admission status: Patient overall is already improving. Medically necessary treatment will likely span 1 midnight. Observation status.
[2024-08-16 21:21] LABS: Glucometer 113 mg/dL (74-106)
[2024-08-16] MEDS: LABETALOL HCL 100 MG TABLET 150 MG PO (21:22)
[2024-08-16] MEDS: METOCLOPRAMIDE HCL 10 MG TABLET 5 MG PO (21:23)
[2024-08-16] MEDS: APIXABAN 5 MG TABLET 2.5 MG PO (21:23)
[2024-08-16] MEDS: GUAIFENESIN DM 600-30 MG 12 HR TAB 1 TAB PO (21:23)
[2024-08-16] MEDS: FERROUS SULFATE 325 MG TABLET PO (21:23)
[2024-08-16] MEDS: CLONIDINE HCL 0.1 MG TABLET PO (21:23)
[2024-08-17] VITALS (9 sets, daily range): BP systolic 147–189; BP diastolic 82–94; PULSE 76–112; TEMP 36.5–36.7; O2SAT 90–95
[2024-08-17] MEDS: HYDRALAZINE HCL 20 MG/ML VIAL 10 MG IVP ×2 (03:58→08:11)
[2024-08-17 05:39] LABS: Basophils Percent Auto 0.3 % (0.2-2.0); Eosinophils Absolute Auto 0.3 10^3/uL (0.0-0.7); Eosinophils Percent Auto 2.9 % (0.9-7.0); Hematocrit 50.3 % (42.0-54.0); Hemoglobin 16.5 g/dL (14.0-18.0); Immature Granulocytes Abs Auto 0.04 10^3/uL (0.00-0.03); Immature Granulocytes Pct Auto 0.4 % (0.0-0.5); Lymphocytes Absolute Auto 1.2 10^3/uL (1.2-3.8); Lymphocytes Percent Auto 12.4 % (20.5-60.0); Mean Corpuscular HGB Conc 32.8 g/dL (29.9-35.2); Mean Corpuscular Hemoglobin 33.4 pg (25.9-34.0); Mean Corpuscular Volume 101.8 fL (80.0-94.0); Mean Platelet Volume 11.6 fL (9.5-13.5); Monocytes Absolute Auto 0.8 10^3/uL (0.3-0.8); Monocytes Percent Auto 8.7 % (1.7-12.0); Neutrophils Percent Auto 75.3 % (43.0-75.0); Platelet Count 203 10^3/uL (150-450); Red Blood Count 4.94 10^6/uL (4.70-6.10); Red Cell Distribution Width 14.5 % (11.0-15.0); White Blood Count 9.3 10^3/uL (4.0-11.0)
[2024-08-17 05:57] LABS: Alanine Aminotransferase 26 U/L (16-63); Albumin Level 3.4 g/dL (3.4-5.0); Alkaline Phosphatase 104 U/L (46-116); Anion Gap 18.8; Aspartate Amino Transferase 20 U/L (15-37); BUN Creatinine Ratio 17.1; Bilirubin Total 0.6 mg/dL (0.2-1.0); Calcium 9.5 mg/dL (8.5-10.1); Carbon Dioxide 21.6 mmol/L (21.0-32.0); Chloride 103 mmol/L (98-107); Estimated GFR (African America 51 (>=60 mL/min/1.73m^2); Estimated GFR (Non-African Ame 42 (>=60 mL/min/1.73m^2); Globulin 3.5 g/dL; Glucose 202 mg/dL (74-106); Potassium 4.4 mmol/L (3.5-5.1); Sodium 139 mmol/L (136-145); Total Protein 6.9 g/dL (6.4-8.2)
[2024-08-17 07:26] LABS: Glucometer 218 mg/dL (74-106)
[2024-08-17] MEDS: GUAIFENESIN DM 600-30 MG 12 HR TAB 1 TAB PO (08:03)
[2024-08-17] MEDS: OMEPRAZOLE 20 MG CAPSULE.DR 40 MG PO (08:03)
[2024-08-17] MEDS: INSULIN ASPART 300 UNIT/3 ML PEN SUBQ (08:04)
--- NOTE | 2024-08-17 08:06 | P.DS_ITS ---
DS: Providers Provider Date of admission: 08/16/24 10:18 Primary care physician: Pj Sung MD Consults: 08/16/24 Consult to Video Presentation Operator Routine Reason for consult:: Advanced Directives 08/16/24 12:55 Consult to Pharmacy Routine Consulting Provider: Reason for consultation: Please [place] me when Med Rec is Updated Has provider been notified: No Occupational Therapy Eval and Treat Routine Reason for consultation: Only if needed for Rehab Has provider been notified: No Physical Therapy Eval and Treat Routine Reason for consultation: Eval and Treat Has provider been notified: No DS: Diagnosis Discharge Diagnosis (1) Lethargy: (2) Difficulty with speech: (3) AMS (altered mental status): (4) Balanitis: (5) Pulmonary edema: (6) Dyspnea: (7) Congestive heart failure: Plan Admission findings: Altered mental status, uncontrolled high blood pressure, right lower lobe infiltrate Right lower lobe infiltrate leading to altered mental status-improving at the time of discharge Altered mental status also possibly related to change in primidone will hold primidone dose completely. Improving at the time of discharge NIDDM-elevated at the time of discharge we will monitor closely as an outpatient Hypertension-medications adjusted prior to dischargetinue with home medications Chronic combined congestive heart failure-continue with home medications Admission status: Patient somewhat nauseated this morning, may not be discharged and will change to inpatient status if not discharged ? DS: Summary Hospital Course Hospital Course: Patient had a complicated course lately with the change in his primidone dosing, was very confused yesterday. Also increasing cough, chest x-ray suggestive of left lower lobe infiltrate. Patient was admitted started on IV antibiotics. He is better this morning but somewhat nauseated. If he overall improved later today can be discharged to home in improving condition. Medications to this. Follow-up with me closely in the office. If unable to eat, will consider repeat testing and consult to cardiology and medically necessary treatment may span 2 midnights. Will follow-up with nursing staff later today, suspecting likely discharge later today Status at Discharge Overall status at discharge: patient is not back to baseline Time Spent with Patient Time attestation: Total time spent providing and/or coordinating discharge services: Time spent: greater than 30 minutes Exam Constitutional Vital Signs, click to edit/add: Last Vital Signs Temp 97.7 F 08/17/24 07:43 Pulse 112 H 08/17/24 08:00 Resp 20 08/17/24 07:43 BP 189/94 H 08/17/24 07:43 Pulse Ox 93 L 08/17/24 07:43 O2 Del Method Room Air 08/17/24 07:43 Documenting provider has reviewed patient's vital signs: yes Common normals: no apparent distress Chest Common normals: inspection of chest normal Respiratory Common normals: normal respiratory effort (Some cough during the exam) and no retractions Effort & inspection: able to speak in complete sentences; non tachypneic and no respiratory distress Auscultation: rhonchi and diminished lung sounds Cardio Common normals: regular rate and regular rhythm GI Common normals: Normal to inspection, nondistended, normoactive bowel sounds present and soft to palpation Extremity Common normals: normal to inspection, normal capillary refill and no clubbing, cyanosis or edema DS: Data Data Completed and Pending Labs on day of discharge: Labs from last 24 hours 08/17/24 08/17/24 08/16/24 07:24 05:20 21:20 WBC 9.3 RBC 4.94 Hgb 16.5 Hct 50.3 MCV 101.8 H MCH 33.4 MCHC 32.8 RDW 14.5 Plt Count 203 MPV 11.6 Neut % (Auto) 75.3 H Lymph % (Auto) 12.4 L [place] % (Auto) 8.7 Eos % (Auto) 2.9 Baso % (Auto) 0.3 Neut # (Auto) 7.0 H Lymph # (Auto) 1.2 [place] # (Auto) 0.8 Eos # (Auto) 0.3 Baso # (Auto) 0.0 Abs Immat Gran (auto) 0.04 H Imm/Tot Granulo (auto) 0.4 PT INR Puncture Site ABG pH ABG pCO2 ABG pO2 ABG HCO3 ABG O2 Saturation ABG Base Excess [place] Test Sodium 139 Potassium 4.4 Chloride 103 Carbon Dioxide 21.6 Anion Gap 18.8 BUN 27.0 H Creatinine 1.58 H Est GFR ( Amer) 51 L Est GFR (Non-Af Amer) 42 L BUN/Creatinine Ratio 17.1 Glucose 202 H Lactate Calcium 9.5 Total Bilirubin 0.6 AST 20 ALT 26 Alkaline Phosphatase 104 Ammonia Troponin I High Sens Total Protein 6.9 Albumin 3.4 Globulin 3.5 Albumin/Globulin Ratio 1.0 Urine Color Urine Clarity Urine pH Ur Specific [place] Urine Protein Urine Glucose (UA) Urine Ketones Urine Occult Blood Urine Nitrite Urine Bilirubin Urine Urobilinogen Ur Leukocyte Esterase SARS-CoV-2 Ag (CV2AG) POC Glucose 218 H 113 H 08/16/24 08/16/24 08/16/24 16:16 14:10 13:12 WBC RBC Hgb Hct MCV MCH MCHC RDW Plt Count MPV Neut % (Auto) Lymph % (Auto) [place] % (Auto) Eos % (Auto) Baso % (Auto) Neut # (Auto) Lymph # (Auto) [place] # (Auto) Eos # (Auto) Baso # (Auto) Abs Immat Gran (auto) Imm/Tot Granulo (auto) PT INR Puncture Site Lr ABG pH 7.451 H ABG pCO2 38.3 ABG pO2 72.2 L ABG HCO3 26.7 H ABG O2 Saturation 94.8 ABG Base Excess 2.7 H Prince Test Positive Sodium Potassium Chloride Carbon Dioxide Anion Gap BUN Creatinine Est GFR ( Amer) Est GFR (Non-Af Amer) BUN/Creatinine Ratio Glucose Lactate Calcium Total Bilirubin AST ALT Alkaline Phosphatase Ammonia <10 L Troponin I High Sens Total Protein Albumin Globulin Albumin/Globulin Ratio Urine Color Urine Clarity Urine pH Ur Specific [place] Urine Protein Urine Glucose (UA) Urine Ketones Urine Occult Blood Urine Nitrite Urine Bilirubin Urine Urobilinogen Ur Leukocyte Esterase SARS-CoV-2 Ag (CV2AG) POC Glucose 269 H 08/16/24 08/16/24 08/16/24 11:27 09:54 09:05 WBC RBC Hgb Hct MCV MCH MCHC RDW Plt Count MPV Neut % (Auto) Lymph % (Auto) [place] % (Auto) Eos % (Auto) Baso % (Auto) Neut # (Auto) Lymph # (Auto) [place] # (Auto) Eos # (Auto) Baso # (Auto) Abs Immat Gran (auto) Imm/Tot Granulo (auto) PT INR Puncture Site ABG pH ABG pCO2 ABG pO2 ABG HCO3 ABG O2 Saturation ABG Base Excess [place] Test Sodium Potassium Chloride Carbon Dioxide Anion Gap BUN Creatinine Est GFR ( Amer) Est GFR (Non-Af Amer) BUN/Creatinine Ratio Glucose Lactate Calcium Total Bilirubin AST ALT Alkaline Phosphatase Ammonia Troponin I High Sens Total Protein Albumin Globulin Albumin/Globulin Ratio Urine Color Lt. yellow Urine Clarity Clear Urine pH 7.0 Ur Specific [place] 1.010 Urine Protein Negative Urine Glucose (UA) >=1000 A Urine Ketones Negative Urine Occult Blood Negative Urine Nitrite Negative Urine Bilirubin Negative Urine Urobilinogen 0.2 Ur Leukocyte Esterase Negative SARS-CoV-2 Ag (CV2AG) Negative POC Glucose 299 H 08/16/24 08/16/24 09:00 08:59 WBC 9.6 RBC 4.65 L Hgb 15.7 Hct 47.8 MCV 102.8 H MCH 33.8 MCHC 32.8 RDW 14.2 Plt Count 193 MPV 11.4 Neut % (Auto) 82.0 H Lymph % (Auto) 8.0 L [place] % (Auto) 7.3 Eos % (Auto) 2.0 Baso % (Auto) 0.3 Neut # (Auto) 7.8 H Lymph # (Auto) 0.8 L [place] # (Auto) 0.7 Eos # (Auto) 0.2 Baso # (Auto) 0.0 Abs Immat Gran (auto) 0.04 H Imm/Tot Granulo (auto) 0.4 PT 10.5 INR 0.99 Puncture Site ABG pH ABG pCO2 ABG pO2 ABG HCO3 ABG O2 Saturation ABG Base Excess [place] Test Sodium 138 Potassium 4.1 Chloride 101 Carbon Dioxide 26.9 Anion Gap 14.2 BUN 25.0 H Creatinine 1.71 H Est GFR ( Amer) 46 L Est GFR (Non-Af Amer) 38 L BUN/Creatinine Ratio 14.6 Glucose 338 H Lactate 1.8 Calcium 9.4 Total Bilirubin 0.6 AST 15 ALT 26 Alkaline Phosphatase 108 Ammonia Troponin I High Sens 17.0 Total Protein 6.9 Albumin 3.5 Globulin 3.4 Albumin/Globulin Ratio 1.0 Urine Color Urine Clarity Urine pH Ur Specific [place] Urine Protein Urine Glucose (UA) Urine Ketones Urine Occult Blood Urine Nitrite Urine Bilirubin Urine Urobilinogen Ur Leukocyte Esterase SARS-CoV-2 Ag (CV2AG) POC Glucose 292 H Discharge Plan Discharge Disposition: Home, Self-Care Condition: Fair Discharge Medications: New cefdinir 300 mg capsule 600 mg PO DAILY Qty: 20 0RF clonidine HCl 0.1 mg Tablet 0.2 mg PO Q12H Qty: 120 11RF Continued pioglitazone [Actos] 45 mg tablet 45 mg PO DAILY alprazolam 0.25 mg tablet 0.25 mg PO BID duloxetine 20 mg capsule,delayed release(DR/EC) 20 mg PO .QD escitalopram oxalate 5 mg tablet 5 mg PO .QD potassium chloride 20 mEq tablet,ER particles/crystals 40 meq PO .QD dextromethorphan-guaifenesin 30-600 mg tablet extended release 12 hr 1 tab PO Q12H acyclovir 400 mg tablet 400 mg PO Q12H dicyclomine 10 mg capsule 10 mg PO QID PRN (Reason: abdominal pain) Hold Instructions: DC ezetimibe 10 mg tablet 10 mg PO DAILY ferrous sulfate 325 mg (65 mg iron) tablet 325 mg PO BID furosemide 40 mg tablet 40 mg PO Q12H glimepiride 4 mg tablet 8 mg PO DAILY Rx Instructions: AT NOON labetalol 300 mg tablet 300 mg PO Q12H metoclopramide HCl 5 mg tablet 5 mg PO BEDTIME tamsulosin 0.4 mg capsule 0.4 mg PO Q24H magnesium 500 mg See Rx Instructions PO BID Rx Instructions: 2 TABLETS orally twice a day; Jardiance 25 mg tablet 25 mg PO DAILY Vitamin B-Complex tablet 1 tab PO .NOON cholecalciferol (vitamin D3) [Thera-D] 50 mcg (2,000 unit) tablet 2,000 unit PO DAILY ACETAMINOPHEN PM tablet 1 tab PO BEDTIME aspirin [Adult Low Dose Aspirin] 81 mg tablet,delayed release (DR/EC) 81 mg PO DAILY apixaban 2.5 mg tablet 2.5 mg PO BID alogliptin 25 mg tablet 25 mg PO DAILY Discontinued primidone 250 mg tablet 250 mg PO .QHS clonidine HCl 0.1 mg tablet 0.1 mg PO Q12H Activity: increase activity as tolerated Diet: advance to your usual diet Print Language: Pashto Patient Instructions: Clonidine (By mouth), Cefdinir (By mouth), Altered Mental Status (ED), Fatigue (DC) Forms: Portal Instructions Follow Up Appointments: Aug.23 @ 9:30am with Dr. Sung [phone] Discharge Date/Time: 08/17/24 10:03
[2024-08-17] MEDS: GLIMEPIRIDE 2 MG TABLET 8 MG PO (09:42)
[2024-08-17] MEDS: FERROUS SULFATE 325 MG TABLET PO (09:42)
[2024-08-17] MEDS: PIOGLITAZONE 15 MG TABLET 45 MG PO (09:42)
[2024-08-17] MEDS: ACYCLOVIR 200 MG CAPSULE 400 MG PO (09:42)
[2024-08-17] MEDS: TAMSULOSIN HCL 0.4 MG CAPSULE PO (09:43)
[2024-08-17] MEDS: EZETIMIBE 10 MG TABLET PO (09:43)
[2024-08-17] MEDS: POTASSIUM CHLORIDE 10 MEQ ER TABLET 40 MEQ PO (09:43)
[2024-08-17] MEDS: ASPIRIN 81 MG TABLET.DR PO (09:43)
[2024-08-17] MEDS: DULOXETINE HCL 20 MG CAPSULE.DR PO (09:43)
[2024-08-17] MEDS: LABETALOL HCL 100 MG TABLET 150 MG PO (09:43)
[2024-08-17] MEDS: APIXABAN 5 MG TABLET 2.5 MG PO (09:44)
[2024-08-17] MEDS: ESCITALOPRAM 10 MG TABLET 5 MG PO (09:44)
[2024-08-17] MEDS: CLONIDINE HCL 0.1 MG TABLET 0.2 MG PO (09:45)
--- NOTE | 2024-08-21 14:25 | CM.DCFOLLOWU ---
Person spoke with:patient How are you feeling?well How is your pain?none Did you understand your discharge instructions? yes Do you have any questions about your discharge instructions? no Were you given any prescriptions at discharge?yes Were you able to get your prescriptions filled?yes Do you understand how to take your medications as ordered?yes Do you have any questions about your follow up appointment and do you plan to keep your follow up appointment?no questions, reviewed follow up Is there anything else that you would like to discuss? no Questions/Comments/Concerns/Other: none
== END 2024-08-17 10:03 | disposition home or self-care (01) ==
LOC: ER 10:28 → MS 10:55
PROVIDERS: Admitting Provider Family Medicine; Emergency Provider Emergency Medicine; PCP Family Medicine; Visit Provider Family Medicine
DX: R91.8 Other nonspecific abnormal finding of lung field (principal); R41.82 Altered mental status, unspecified; E11.9 Type 2 diabetes mellitus without complications; F32.A Depression, unspecified; F41.9 Anxiety disorder, unspecified; I11.0 Hypertensive heart disease with heart failure; I50.42 Chronic combined systolic (congestive) and diastolic (congestive) heart failure; R53.83 Other fatigue; R47.9 Unspecified speech disturbances; N48.1 Balanitis; J81.1 Chronic pulmonary edema; R06.00 Dyspnea, unspecified; Z87.891 Personal history of nicotine dependence; Z20.822 Contact with and (suspected) exposure to COVID-19
CPT/HCPCS: 36415; 36600; 70450; 71045; 80053; 81003; 82140; 82805; 82948; 83605; 84484; 85025; 85610; 87040; 87070; 87811; 93005; 94667; 94668; 94761; 96361; 96365; 96366; 96368; 96375; 96376; 97162; 97165; 99285; G0378; J0360; J0456; J0696

== ENCOUNTER 2024-09-08 11:50 | Emergency (ER) | payer MEDICARE, SELFPAY ==
[2024-09-08] VITALS (7 sets, daily range): BP systolic 160–218; BP diastolic 70–108; PULSE 63–77; TEMP 36.7; O2SAT 95–96; BMI 25.6
--- NOTE | 2024-09-08 11:54 | ECG_ITS ---
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
--- NOTE | 2024-09-08 11:54 | XR_ITS ---
The [address] [address] Patient Name: NADIR HEREDIA MRN: [id number] date: 1940 Sex: M Assigned Patient Location: ER Current Patient Location: ER Accession/Order Number: [id number] Exam Date: 09/08/2024 12:18 Report Date: 09/08/2024 13:01 At the request of: AKHIL DOBSON Procedure: XR chest 1V EXAM: XR chest 1V HISTORY: Confusion. COMPARISON: Portable chest radiograph dated 08/16/2024. TECHNIQUE: AP erect portable chest radiograph performed. FINDINGS: Stable moderate enlargement of the cardiac silhouette which is partially obscured. Stable pulmonary vascular congestion, stable bibasilar consolidation and stable small right pleural effusion which in the right clinical setting are consistent with congestive heart failure. Correlate with clinical findings to exclude underlying pneumonia. Stable small calcified granuloma at the left lung base. There is no pneumothorax or acute osseous abnormality. XR/XR chest 1V IMPRESSION: Stable findings which in the right clinical setting are consistent with congestive heart failure and pulmonary edema. Correlate with clinical findings to exclude an underlying pneumonia. Electronically authenticated by: NATASHA GERBER Date: 09/08/2024 13:01
--- NOTE | 2024-09-08 11:54 | CT_ITS ---
The [address] [address] Patient Name: NADIR HEREDIA MRN: [id number] date: 1940 Sex: M Assigned Patient Location: ER Current Patient Location: Accession/Order Number: [id number] Exam Date: 09/08/2024 12:45 Report Date: 09/08/2024 13:08 At the request of: AKHIL DOBSON Procedure: CT head/brain wo con EXAM: CT head/brain wo con HISTORY: Episode of confusion COMPARISON: CT head 08/16/2024. TECHNIQUE: Axial noncontrast CT imaging of the head was performed with coronal and sagittal reformats. This CT exam was performed using one or more of the following dose reduction techniques: Automated exposure control, adjustment of the MA and/or kV according to patient size, or use of iterative reconstruction technique. FINDINGS: Calvarium/skull base: No evidence of acute fracture or destructive lesion. Bilateral intraocular lens replacement. Mastoid air cells are well aerated. Paranasal sinuses: No air fluid levels. Brain: No acute intracranial hemorrhage. No acute large vascular territory infarct. 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 Mild parenchymal volume loss. No mass lesion or mass effect. No hydrocephalus. Intracranial atherosclerosis. CT/CT head/brain wo con IMPRESSION: No acute intracranial process. No substantial change in appearance of the brain parenchyma compared to 08/16/2024. Electronically authenticated by: RATNA PETERS Date: 09/08/2024 13:08
[2024-09-08 12:05] LABS: Glucometer 236 mg/dL (74-106)
--- OUTSIDE RECORDS SUMMARY | 2024-09-08 12:06 | XMS_ITS | CCD ---
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 Name Role Phone PHYSICIAN, DEFAULT Admitting Unavailable PHYSICIAN, DEFAULT Attending Unavailable VAN YOUSSEF Primary Care Unavailable Van Youssef Primary Care Physician [phone] MIKAEL ., DR ARAUJO Primary Care Unavailable HOY ., DR ARAUJO Consulting Unavailable HOY ., DR ARAUJO Attending Unavailable HOY ., DR ARAUJO Admitting Unavailable ZIEBER, DR CLOVER Zimmer Consulting Unavailable SHUNGNAK, DR CRAMER Consulting Unavailable HOY ., DR ARAUJO Primary Care Unavailable SHUNGNAK, DR CRAMER Attending Unavailable SHUNGNAK, DR CRAMER Admitting Unavailable SHUNGNAK, DR CRAMER Consulting Unavailable HOY ., DR ARAUJO Primary Care Unavailable SHUNGNAK, DR CRAMER Attending Unavailable SHUNGNAK, DR CRAMER Admitting Unavailable HOY ., DR ARAUJO Consulting Unavailable HOY ., DR ARAUJO Primary Care Unavailable HOY ., DR ARAUJO Attending Unavailable HOY ., DR ARAUJO Admitting Unavailable SHUNGNAK, DR CRAMER Consulting Unavailable HOY ., DR ARAUJO Primary Care Unavailable SHUNGNAK, DR CRAMER Attending Unavailable SHUNGNAK, DR CRAMER Admitting Unavailable HOY ., DR ARAUJO Consulting Unavailable HOY ., DR ARAUJO Primary Care Unavailable HOY ., DR ARAUJO Attending Unavailable HOY ., DR ARAUJO Admsegun Unavailable ALI, ALSTON Consulting Unavailable HOY ., [...] HOY ., DR ARAUJO Primary Care Unavailable MIKAEL ., DR ARAUJO Attending Unavailable HOY ., DR ARAUJO Admitting Unavailable HOY ., DR ARAUJO Consulting Unavailable HOY ., DR ARAUJO Attending Unavailable HOY ., DR ARAUJO Admitting Unavailable HOY ., DR ARAUJO Primary Care Unavailable NADSHERICE MCLAUGHLIN Consulting Unavailable HARLEY, MYNOR Consulting Unavailable Dwyer, Yefri Consulting Unavailable ZELAYA, FRANCISCO Consulting Unavailable PELLissa, LI Consulting Unavailable RUTHIE LINDA Attending Unavailable JEFF REYES Attending Unavailable MOUKARBEL, CLARIBEL Attending Unavailable MOUKARBEL, CLARIBEL Attending Unavailable MOUKARBEL, CLARIBEL Attending Unavailable MOUKARBEL, CLARIBEL Attending Unavailable DANA APARICIO Attending Unavailable MOUKARBEL, CLARIBEL Referring Unavailable Patricia, Nereyda A Attending Unavailable Patricia, Nereyda A Attending Unavailable Patricia, Nereyda A Attending Unavailable NKANSAH-AMANKRA, MARQUIS Attending Unavail able Patricia, Nereyda A Admitting Unavailable Van Youssef Consulting Unavailable Patricia, Nereyda A Attending Unavailable MD Van Youssef Consulting Unavailable NKANSAH-AMANKRA, MARQUIS Attending Unavail able Patricia, Nereyda A Attending Unavailable Patricia, Nereyda A Attending Unavailable Van Youssef MD Primary Care Provider [phone] BLAISE CHICAS Attending Unavailable BARRIE MONTOYA Attending Unavailable BLAISE CHICAS Attending Unavailable BLAISE CHICAS Attending Unavailable BLAISE CHICAS Attending Unavailable BLAISE CHICAS Attending Unavailable BLAISE CHICAS Attending Unavailable BARRIE MONTOYA Attending Unavailable BLAISE CHICAS Attending Unavailable RODNEY JOY Attending Unavailable Allergies Allergy Classification Reported Allergen(s) Allergy Type Date of Onset Reaction(s) Facility (15 sources) Aminolevulinic Acid; Translations: [aminolevulinic acid] Drug Allergy 11-04-20 13 Unknown [facility] Repository (1 source) NITRO PATCH; Translations: [NITRO PATCH] Propensity to adverse reactions (disorder) 03-18-20 12 [facility] Repository (13 sources) Contrast media; Translations: [Contrast Dye] Drug allergy Unknown (qualifier value) [facility] (17 sources) Hmg-Coa Reductase Inhibitors (Statins); Translations: [statins] Allergy to substance 08-24-20 23 Unknown [facility] (20 sources) Nitroglycerin; Translations: [nitroglycerin] Drug Allergy 02-23-20 22 Unknown (qualifier value) [facility] (2 sources) black walnut pollen extract; Translations: [DRXSJQR-GER-GDA REDUCTASE INHIBITORS] Drug Allergy 04-21-20 17 [facility] Repository (1 source) Iodine (And Iodine Containting Drugs) Drug allergy (disorder) 05-28-20 16 [facility] Repository (5 sources) IODINATED CONTRAST MEDIA; Translations: [IODINATED CONTRAST MEDIA] Propensity to adverse reactions to drug (disorder) 07-17-20 [facility] Repository (1 source) Aminolevulinic Acid; Translations: [aminolevulinic acid] Drug Allergy 11-04-20 13 [facility] Repository (1 source) Nitroglycerin; Translations: [Nitroglycerin Patch] Drug Allergy [facility] Repository (4 sources) Nitroglycerin Allergy to substance 02-23-20 [facility] Medications Current Medications Medication Drug Class(es) Dates Sig (Normalized) Sig (Original) acyclovir 400 mg oral tablet (16 sources) Herpesvirus Nucleoside Analog DNA Polymerase Inhibitor, Herpes Simplex Virus Nucleoside Analog DNA Polymerase Inhibitor, Herpes Zoster Virus Nucleoside Analog DNA Polymerase Inhibitor Start: 01-09-2019 take 400 mg by mouth twice daily acyclovir 400 mg, Oral, BID, Refills(s) 0, Infection or prophylaxis for antibiotics Start Date: 01/09/19 Status: Ordered alogliptin 25 mg oral tablet (4 sources) Start: 11-12-2022 take 1 tablet by mouth in the morning alogliptin (Nesina) 25 MG tablet Take 1 tablet by mouth in the morning. 11/12/2022 Active ALPRAZolam 0.25 mg oral tablet (4 sources) Benzodiazepine ALPRAZolam (Xanax) 0.25 MG tablet every 12 (twelve) hours. Active apixaban 2.5 mg oral tablet (16 sources) Factor Xa Inhibitor Start: 01-09-2019 take 2.5 mg by mouth twice daily Eliquis 2.5 mg, Oral, BID, Refills(s) 0, Blood Thinner Start Date: 01/09/19 Status: Ordered Start: 01-09-2019 take 5 mg by mouth twice daily Eliquis 5 mg, Oral, BID, Refills(s) 0, Blood Thinner Start Date: 01/09/19 Status: Ordered apixaban (Eliqui s) 2.5 MG tablet every 12 (twelve) hours. Active aspirin 81 mg oral tablet (16 sources) Platelet Aggregation Inhibitor, Nonsteroidal Anti-inflammatory Drug Start: 01-09-2019 take 81 mg by mouth once daily aspirin 81 mg, Oral, Daily, Refills(s) 0, Prophylaxis Start Date: 01/09/19 Status: Ordered take 1 tablet by mouth in the mo rning aspirin 81 MG EC tablet Take 1 tablet by mouth in the morning. Active B-Complex tablet (4 sources) B-Complex tablet as directed Orally Active bifidobacterium infantis 4 mg oral capsule (7 sources) Start: 06-10-2023 End: 09-08-2023 take 1 capsule by mouth once daily Align 4 mg oral capsule 4 mg = 1 cap(s), Oral, Daily, Take after completing the Antibiotics course, X 90 day(s), # 90 cap(s), Refills(s) 0, Pharmacy: [facility]/pharmacy #[id number], 185, cm, 06/10/23 10:45:00 EDT, Height/Length Dosing, 97, kg, 06/10/23 10:45:00 EDT, Weight Dosing Start Date: 06/10/23 Stop Date: 09/08/23 Status: Ordered Start: 08-28-2020 take 1 capsule by [facility] once daily Align 4 mg oral capsule 4 mg = 1 cap(s), Oral, Daily, Take after completing the Antibiotics course, # 28 cap(s), Refills(s) 0, Pharmacy: [facility]/pharmacy #[id number], 185, cm, 08/28/20 12:05:00 EDT, Height/Length Dosing, 103.7, kg, 08/28/20 12:05:00 EDT, Weight Dosing Start Date: 08/28/20 Status: Ordered Symbicort (12 sources) Corticosteroid, beta2-Adrenergic Agonist Start: 01-09-2019 Symbicort 80-4.5 mcg/actuation, Inhalation, BID, Refill(s) 0, COPD Start Date: 01/09/19 Status: Ordered cholecalciferol 0.025 mg oral tablet (4 sources) Vitamin D cholecalciferol (Vitamin D-[address]) 25 MCG (1000 UT) tablet Take 2,000 Units by mouth in the morning. Active cloNIDine hydrochloride 0.1 mg oral tablet (16 sources) Central alpha-2 Adrenergic Agonist Start: 01-09-2019 take 0.1 mg by mouth twice daily clonidine 0.1 mg, Oral, BID, Refills(s) 0, High blood pressure Start Date: 01/09/19 Status: Ordered dicyclomine hydrochloride 10 mg oral tablet (16 sources) Anticholinergic Start: 01-09-2019 take 10 mg by mouth twice daily dicyclomine 10 mg, Oral, BID, Refills(s) 0, Spasm Start Date: 01/09/19 Status: Ordered take 1 capsule by mouth once jazzy ly dicyclomine (Bentyl) 10 MG capsule Take 1 capsule every day by oral route. Active DULoxetine 20 mg delayed release oral capsule (4 sources) Serotonin and Norepinephrine Reuptake Inhibitor Start: 08-01-2024 End: 01-28-2025 take 1 capsule by mouth at bedtime DULoxetine (Cymbalta) [address] capsule Indications: Neurogenic pain Take 1 capsule (20 mg) by mouth at bedtime 90 capsule 1 08/01/2024 01/28/2025 Active empagliflozin 25 mg oral tablet (16 sources) Sodium-Glucose Cotransporter 2 Inhibitor Start: 11-12-2022 take 1 tablet by mouth in the morning empagliflozin (Jardiance) 25 MG Take 1 tablet by mouth in the morning. 11/12/2022 Active Start: 03-31-2022 take 1 tablet by joslyn th once daily in the morning Jardiance 10 mg oral tablet 10 mg = 1 tab(s), Oral, qAM, Refills(s) 0, Blood glucose Start Date: 03/31/22 Status: Ordered ezetimibe 10 mg oral tablet (20 sources) Dietary Cholesterol Absorption Inhibitor Start: 01-09-2019 take 10 mg by mouth once daily Zetia 10 mg, Oral, Daily, Refills(s) 0, High cholesterol Start Date: 01/09/19 Status: Ordered ferrous sulfate (16 sources) Start: 01-09-2019 ferrous sulfat e 325 mg, BID, Refills(s) 0, Prophylaxis Start Date: 01/09/19 Status: Ordered take 1 tablet by mouth in the pr rning ferrous sulfate 325 (65 Fe) MG tablet Take 1 tablet by mouth in the morning and 1 tablet before bedtime. Active furosemide 80 mg oral tablet (17 sources) Loop Diuretic Start: 08-08-2024 take 1 mg by mouth once daily Lasix 80 mg Tab mg tab(s), Oral, Daily, Refills(s) 0 Start Date: 08/08/24 Status: Ordered Start: 01-09-2019 Lasix 20 MG ta blet 1 (one) time each day at the same time. 07/07/2023 Active Start: 01-09-2019 Lasix 40 mg, R efills(s) 0, diuretic/water pill Start Date: 01/09/19 Status: Ordered gabapentin 600 mg oral tablet (12 sources) Anti-epileptic Agent Start: 01-09-2019 gabapenti n 600 mg, Oral, qNOON, Refills(s) 0, Neuropathy Start Date: 01/09/19 Status: Ordered glimepiride 2 mg oral tablet (16 sources) Sulfonylurea Start: 01-09-2019 take 2 mg by mouth once daily glimepiride 2 mg, Oral, Daily, Refills(s) 0, High blood sugar Start Date: 01/09/19 Status: Ordered take 1 tablet by mouth in the [facility] glimepiride (Amaryl) 4 MG tablet Take 1 tablet by mouth in the morning and 1 tablet before bedtime. Active hydrALAZINE hydrochloride 100 mg oral tablet (12 sources) Arteriolar Vasodilator Start: 01-09-2019 take 100 mg by mouth twice daily hydrALAZINE 100 mg, Oral, BID, Refills(s) 0, High blood pressure Start Date: 01/09/19 Status: Ordered Labetalol (16 sources) beta-Adrenergic Ora Start: 01-09-2019 take 150 mg by mouth once daily labetalol 150 mg, Oral, Daily, Refills(s) 0, High blood pressure Start Date: 01/09/19 Status: Ordered Start: 01-09-2019 take 300 mg by mouth once umang y labetalol 300 mg, Oral, Daily, Refills(s) 0, High blood pressure Start Date: 01/09/19 Status: Ordered labetalol (Normo dyne) 300 MG tablet 3 (three) times a day Active levoFLOXacin 750 mg oral tablet (4 sources) Quinolone Antimicrobial Start: 07-23-2023 levoFLOXacin (Levaquin) 750 MG tablet 1 (one) time each day at the same time. 07/23/2023 Active magnesium oxide 500 mg oral tablet (12 [...] Status: Ordered metoclopramide 5 mg oral tablet (16 sources) Dopamine-2 Receptor Antagonist Start: 01-09-2019 take 5 mg by mouth twice daily metoclopramide 5 mg, Oral, BID, Refills(s) 0, Control of stomach acid Start Date: 01/09/19 Status: Ordered metoclopramide ( Reglan) 5 MG tablet every 12 (twelve) hours Active mupirocin 20 mg/ml topical cream (1 source) [...] take 1 dose by mouth once daily Lorenza Lemus oral powder for reconstitution See Instructions, 1 EA, Refill(s) 0, 240 mL Oral Daily Prior to colonoscopy Per physician's instructions, [facility]/pharmacy #[id number], 185, cm, 03/31/22 9:58:00 EDT, Height/Length Dosing, 101, kg, 03/31/22 9:58:00 EDT, Weight Dosing Start Date: 03/31/22 Status: Ordered omeprazole 20 mg oral tablet (16 sources) Proton Pump Inhibitor Start: 01-09-2019 take 20 mg by mouth twice daily omeprazole 20 mg, Oral, BID, Refills(s) 0, Control of stomach acid Start Date: 01/09/19 Status: Ordered take 2 capsules by mouth once da viviane omeprazole (PriLOSEC) [address] capsule Take 2 capsules every day by oral route for 90 days. Active pioglitazone 30 mg oral tablet (20 sources) Peroxisome Proliferator Receptor alpha Agonist, Peroxisome Proliferator Receptor gamma Agonist, Thiazolidinedione Start: 08-28-2020 take 1 tablet by mouth once daily pioglitazone 30 mg Tab 30 mg = 1 tab(s), Oral, Daily, Refills(s) 0, Blood glucose Start Date: 08/28/20 Status: Ordered take 1 tablet by mouth once umang y pioglitazone (Actos) 45 MG tablet TAKE 1 TABLET BY MOUTH EVERY DAY for 90 Active Klor-Con (16 sources) Start: 01-09-2019 Klor-Con 20 mE q, Oral, Daily, Refills(s) 0, Prophylaxis Start Date: 01/09/19 Status: Ordered take 1 tablet by mouth in the mo rning KLOR-CON 20 MEQ ER tablet Take 1 tablet by mouth in the morning and 1 tablet before bedtime. Active Pred Mild (16 sources) Corticosteroid Start: 01-09-2019 take 1 drop(s) into the eye(s) three times daily Pred Mild 1 drop(s), Eye-Both, TID, Refill(s) 0, Inflammation Start Date: 01/09/19 Status: Ordered Start: 01-09-2019 take 1 drop(s) into the eye(s) twice daily Pred Mild 1 drop(s), Eye-Both, BID, Refill(s) 0, Inflammation Start Date: 01/09/19 Status: Ordered take 1 drop(s) into the eye(s) three times daily prednisoLONE acetate (Pred-Forte) 1 % ophthalmic suspension INSTILL 1 DROP INTO RIGHT EYE 3 TIMES A DAY DIRECTED Active primidone 250 mg oral tablet (16 sources) Anti-epileptic Agent Start: 08-01-2024 primidone (Mysoline) 250 MG tablet Indications: Benign essential tremor 1/2 tab BID 90 tablet 1 08/01/2024 Active Start: 01-09-2019 take 1 tablet by joslyn once daily at bedtime primidone 50 mg [...] Ordered tamsulosin hydrochloride 0.4 mg oral capsule (16 sources) alpha-Adrenergic Ora Start: 01-09-2019 take 0.4 mg by mouth once daily Flomax 0.4 mg, Oral, Daily, Refills(s) 0, Urinary discomfort Start Date: 01/09/19 Status: Ordered 60 actuat tiotropium 0.87534 mg/actuat inhalation spray (11 sources) Anticholinergic Start: [...] water, # 160 cap(s), Refills(s) 1, Pharmacy: [facility]/pharmacy #[id number], 185, cm, 08/28/20 12:05:00 EDT, [...] disease (2 sources) Atherosclerotic heart disease of [place] coronary artery without angina pectoris; Translations: [Atherosclerotic heart disease of [place] coronary artery without angina pectoris] Onset: 03-03-2024 [...] source) Long-term current use of anticoagulant; 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: [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] Onset: 08-08-2024 Episodic Other and unspecified benign neoplasm (17 sources) History of polyp of colon; Translations: [Personal history of colonic polyps] Onset: 03-31-2022 Episodic Other and unspecified benign neoplasm (13 sources) Polyp of colon; Translations: [Polyp of colon] Onset: 06-09-2022 08-28-2020 Episodic Other and unspecified benign neoplasm (2 sources) Melanocytic nevus of trunk; Translations: [Melanocytic nevi of trunk] 08-24-2024 Episodic Other diseases of bladder and urethra [...] disorders (4 sources) Constipation 10-01-2023 Episodic Other hereditary and degenerative nervous system conditions (4 sources) Essential tremor; Translations: [Essential tremor] Onset: 01-07-2024 01-07-2024 Chronic Other male genital disorders (2 sources) Acquired buried penis; 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] Onset: 08-08-2024 Chronic Other nervous system disorders (4 sources) Polyneuropathy; Translations: [Polyneuropathy, unspecified] Onset: 01-07-2024 01-07-2024 Chronic Other skin disorders (2 sources) Actinic keratosis; Translations: [Actinic keratosis] 08-24-2024 Episodic Other skin disorders (2 sources) Lentiginosis; Translations: [Other melanin hyperpigmentation] 08-24-2024 Episodic Other skin disorders (2 sources) Seborrheic keratosis; Translations: [Other seborrheic keratosis] 08-24-2024 Episodic Pulmonary heart disease (4 sources) 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 disease; Translations: [Pulmonary hypertension, unspecified] Onset: 10-05-2022 Chronic Residual codes; unclassified (1 source) Sleep apnea, unspecified; Translations: [SLEEP APNEA UNSPECIFIED] Onset: 08-27-2022 Chronic Residual codes; unclassified (4 sources) Obstructive sleep apnea syndrome; Translations: [Obstructive sleep apnea (adult) (pediatric)] Onset: 01-11-2024 01-11-2024 Chronic Residual codes; unclassified (7 sources) Family [...] Onset: 04-30-2022 Episodic Other aftercare (1 source) nursing home (current) use of aspirin; Translations: [CORRECTION CURRENT USE OF ASPIRIN] Onset: 08-27-2022 Episodic Other aftercare (1 source) nursing home (current) use of anticoagulants; Translations: [CORRECTION CURRNT USE ANTICOAGULANTS] Onset: 08-27-2022 Episodic Other aftercare (1 source) Other long term care administrator (current) drug therapy; Translations: [OTH CORRECTION CURRENT DRUG THERAPY] Onset: 08-27-2022 Episodic Other circulatory disease (1 source) Other specified symptoms and signs involving the circulatory and respiratory systems; Translations: [OTH SPEC SX SIGNS INVLV CIRC RS] Onset: 06-19-2022 Episodic Other connective tissue disease (4 sources) Spasm of cervical paraspinous muscle; Translations: [Other muscle spasm] Onset: 01-07-2024 01-07-2024 Episodic Other connective tissue disease (4 sources) Neurogenic pain; Translations: [Neuralgia and neuritis, unspecified] Onset: 01-07-2024 01-07-2024 Episodic Residual codes; unclassified (6 sources) Localized edema; Translations: [LOCALIZED EDEMA] Onset: 11-02-2022 Episodic Residual codes; unclassified (1 source) Edema, unspecified; Translations: [EDEMA UNSPECIFIED] Onset: 08-27-2022 Episodic Unclassified (4 sources) Parkinson's disease; Translations: [Parkinson disease] Onset: 01-07-2024 Resolved: 01-11-2024 01-11-2024 Chronic Unclassified (1 source) CHRN KIDNEY DISEASE STG [...] Test Name Value Interpretation Reference Range Facility No Panel Informationon 08-24 [facility] Ambulatory Visit Summaryon 0 9-24-2024 Ambulatory Visit Summary Ambulatory Visit Summary NADIR BETH :1940 Visit Date:08/08/2024 Ambulatory Visit Instructions Your Diagnosis 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 Normal [facility] Urology Office/Clinic Noteon 08-08-2024 Urology Office/Clinic Note Urology Office/Clinic Note Chief Complaint follow up to [facility] ER HPI Staff 84 year old male new patient follow up to [facility] 08/06/24 presented due to redness on [...] 1. 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) Pt presented to [facility] ER 08/06/24 with redness on the [...] urinary channel, (more content not included)... Normal [facility] Comment on above: Result Comment: Elec tronically Signed By: MARQUIS CAMPBELL MD\.br\Date and Time Signed: 08/08/24 11:05 EDT\.br\Electronically Co-Signed By: Roxy Gatica\.br\Date and Time Co-Signed: 08/08/24 10:46 EDT\.br\Electronically Co-Signed By: Roxy Gatica\.br\Date and Time Co-Signed: 08/08/24 10:53 EDT Office Visiton 07-05-2024 Follow-up visit [id number] Nadir Beth 1940 M Date Provider Department Center 07/05/2024 RUTHIE OWEN [facility] Comprehensiv Family History Problem Relation Age of Onset Coronary artery disease Father Family Status - Relation Status Age at Father Level of Service:75525 MA OFFICE/OUTPATIENT ESTABLISHED MOD MDM 30 MIN Reason for Visit and Comments: Follow-up [[id number]] Normal [facility] 36on 06-20-2024 36 Regarding echo result from 06/09/2024: MD Stephanie Kleley MA Based on the echo he has extra fluid. He should increase furosemide to 80 mg in am and 40 mg in pm. Follow up with nephrology and me in 6 months with echo. Spoke with patients and made her aware of lasix increase per Dr. Cisneros. Advised her to call the office when he needs more lasix. I told her he should have another echo at [facility] in Oct 2024, prior to his follow up with Dr. Cisneros in Nov 2024. She verbalized understanding. Echo order faxed to [facility]. [facility] 06-14-2024 36 Patients called and stating that dr. Linda told her to call and let him know that her husbands blood pressure is better and she would like a call back. [facility] 06-09-2024 36 Spoke with patient's Shanna and made sure she understood to increase labetalol per Dr. Linda. She also understands not to resume hydralazine. [facility] 3606-07-2024 36 I'm Stephanie from Dr. Cisneros's office with Cardiology. Patient's daughter called and wanted to know if Dr. Linda had restarted patient's hydralazine- NOT hydroxyzine. I don't see in the note that it was restarted. Dr. Linda, or someone from his office- can you clarify this for me? Thanks so much. [facility] Follow-Upon 06-07-2024 Follow-Up [id number] Nadir Beth 1940 M Date Provider Department Center 06/07/2024 321-RUTHIE LINDA [facility] Comprehensiv Family History Problem Relation Age of Onset Coronary artery disease Father Family Status - Relation Status Age at Father Level of Service:51262 MA OFFICE/OUTPATIENT ESTABLISHED MOD MDM 30 MIN () Reason for Visit and Comments: Follow-up [[id number]] [facility] Telephoneon 06-07-2024 Telephone [id number] Nadir lin 1940 M Date Provider Department Center 06/07/2024 IRIS FRANZ [facility] Comprehensiv Family History Problem Relation Age of Onset Coronary artery disease Father Family Status - Relation Status Age at Father [facility] Office Visiton 06-05-2024 Follow-up visit [id number] Nadir Beth 1940 M Date Provider Department Center 06/05/2024 CLARIBEL VILLALOBOS Family History Problem Relation Age of Onset Coronary artery disease Father Family Status - Relation Status Age at Father Level of Service:78575 MA OFFICE/OUTPATIENT ESTABLISHED MOD MDM 30 MIN [facility] 36on 05-17-2024 36 Faxed lab orders 05/17/24 [facility] 36on 05-15-2024 36 Patient states that he needs his blood work to go to [facility] before his appointment on 05/31/24. [facility] 05-10-2024 36 LM on for patient or his to return my call. [facility] 05-08-2024 36 Patient's called with concerns of elevated BP since hydralazine was stopped at last apt. She said sometimes it's very good - 110/60's and sometimes 152/70. He's scheduled to see you in a few weeks. Did you want to change anything? Please advise. Thanks. [facility] 36on 04-04-2024 36 Regarding blood work from 04/03/2024: MD Stephanie Kelley MA Stable renal function. Continue same treatment and follow-up as planned. Patient's made aware. [facility] Orders Onlyon 03-21-2024 Orders Only [id number] Nadir Beth 1940 M Date Provider Department Center 03/21/2024 LUCRETIA BENZ Family History Problem Relation Age of Onset Coronary artery disease Father Family Status - Relation Status Age at Father [facility] Office Visiton 03-03-2024 Follow-up visit [id number] Nadir Beth 1940 M Date Provider Department Center 03/03/2024 CLARIBEL VILLALOBOS Family History Problem Relation Age of Onset Coronary artery disease Father Family Status - Relation Status Age at Father Level of Service:16242 MA OFFICE/OUTPATIENT ESTABLISHED MOD MDM 30 MIN Reason for Visit and Comments: Follow-up [[id number]] [facility] 36on 12-29-2023 36 Called and spoke with patient and rescheduled patients appointment from 05/31 to 06/07. [facility] 36on 12-28-2023 36 Called patient lvm to contact the office back to reschedule appointment. [facility] Follow-Upon 11-17-2023 Follow-Up [id number] Nadir Beth Joy 1940 M Date Provider Department Center 11/17/2023 RUTHIE OWEN [facility] Comprehensiv Family History Problem Relation Age of Onset Coronary artery disease Father Family Status - Relation Status Age at Father Level of Service:25586 [place] OFFICE/OUTPATIENT ESTABLISHED MOD MDM 30 MIN () Reason for Visit and Comments: Follow-up [772652] Chronic Kidney Disease [176] [facility] Lab Reportson 10-21-2023 Lab Reports [id number] #1.00TIFF [facility] Gastroenterology Office/Clin ic Noteon 10-18-2023 Gastroenterology [...] fiber supplem (more content not included)... Normal [facility] Comment on above: Result Comment: Elec tronically Signed By: Nereyda Gomez CNP\.mary\Date and Time Signed: 10/18/23 11:30 EST Ambulatory Visit Summaryon 1 12-14-2022 Ambulatory Visit Summary NADIR BETH :1940 Visit Date:10/14/2023 Ambulatory Visit Instructions Your Diagnosis Constipation History of colon polyps Family history of colon cancer Your Care Team Attending Physician - Nereyda Gomez CNP Primary Care Physician - Van Youssef MD This Is Your Medications List Contact [...] PM EST With: Nereyda Gomez CNP Where: [facility] Normal [facility] Patient Educationon 10-14-20 23 Patient Education [...] as fried or sweet foods. These include indonesian fries, hamburgers, cookies, candies, and soda. ? Drink enough fluid to keep your urine pale yellow. General instructions ? Exercise regularly or as told by your health care provider. Try to do 150 minutes of moderate exercise each week. ? Use the bathroom when you have the urge to go. Do not hold it in. ? Take wlxl-iwy-ezdfpor and prescription medicines only as told by [...] keep your urine pale yellow. ? Take fdlq-lnc-wnugjft and prescription medicines only as told by your health care provider. This includes any fiber supplements. This information is not intended to replace advice given to you by your health care provider. Make sure you discuss any questions you have with your health care provider. Document Revised: 09/18/2020 Document Reviewed: 09/18/2020 [email or web address] Patient Education ? 2022 Penxy. [facility] 36on 10-12-2023 36 Patient called to make you aware that he was in [facility] ED on (Wednesday) for SOB. He wanted you to look over his records. I have uploaded them all into his media specialist for your review. His BNP is increased to 4000 and was previously 2600 about 1 month ago. Looks like they gave him extra lasix in the ED and recommended he follow up with Dr. Youssef outpatient. Can you please review and let me know if you'd like anything done/ordered? Thanks. Normal [facility] XR Abdomen 2 Viewson 023 XR [...] mGy = . DAP = . Normal [facility] RAD - MISCon 10-04-2023 RAD - MISC [id number] #1.00TIFF Normal [facility] Ambulatory Visit Summaryon 1 12-01-2022 Ambulatory Visit Summary NADIR LIN Joy :1940 Visit Date:10/01/2023 Ambulatory Visit Instructions Your Diagnosis Constipation Abdominal cramping Nausea History of colon polyps Family history of colon cancer Your Care Team Attending Physician - Nereyda Gomez CNP Primary Care Physician - Van Youssef MD This Is Your Medications List Contact [...] PM EST With: Nereyda Gomez CNP Where: [facility] Invalid Interpretation Code Abdominal cramping [facility] Consent for Treatmenton 09-15 Consent for Treatment [id number] #1.00TIFF Normal [facility] Gastroenterology Office/Clin ic Noteon 10-01-2023 Gastroenterology [...] and affect Assessment/Plan BP elevated today at 17/- BP managed by patient's PCP. 1. Constipation [...] educated t (more content not included)... Normal [facility] Comment on above: Result Comment: Elec [...] Bulgur wheat. Millet. Quinoa. Bran muffins. Popcorn. [place] wafer crackers. Meats and other proteins [place] beans, kidney beans, and mendez beans. Soybeans. [...] Cream cheese. Sour cream. Fats and oils [place]. Beverages Soft drinks. Other foods Cakes and [...] provider. Document Revised: (more content not included)... [facility] 36on 09-20-2023 36 Called and spoke with and rescheduled appointment and informed her patient would need to get labs done. [facility] 36 Patients called in to reschedule appointment from 09/08 [facility] Office Visiton 09-17-2023 Follow-up visit [id number] KiritNadir Hamilton 1940 M Date Provider Department Center 09/17/2023 CLARIBEL VILLALOBOS [facility] Family History Problem Relation Age of Onset Coronary artery disease Father Family Status - Relation Status Age at Father Level of Service:61390 MA OFFICE/OUTPATIENT ESTABLISHED MOD MDM 30-39 MIN Reason for Visit and Comments: Follow-up [946983] [facility] 08-31-2023 [facility] Cardiology [facility] Subjective Nadir Beth is a 83 y.o. year old male patient being seen for Follow-up Patient Active Problem List Diagnosis Aortic valve disorder Atherosclerosis of renal artery (CMS/HCC) Chronic atrial fibrillation ([facility]/HCC) Coronary arteriosclerosis Bradycardia Aortic valve stenosis Type 1 diabetes mellitus ([facility]/HCC) Type 2 diabetes mellitus with stage 3 chronic kidney disease, without long-term current use of insulin ([facility]/HCC) Stage 3 chronic kidney disease ([facility]/HCC) Sleep apnea Pulmonary edema Primary hypertension Dyspnea [...] extremity edema. He was admitted to the [facility] in August 2022 due to hyponatremia, hyperkalemia and acute kidney injury, leukocytosis secondary to COVID-19 causing dehydration. I saw him on 05/24/2023 and the office and he had significant evidence of volume overload by exam and echocardiogram. I intensified his diuretic regimen. He ended up getting admitted to the [facility] with acute heart failure exacerbation and [...] Allergies Allergen Reactions Iodinated Contrast Media Nitroglycerin Cfaftxg-Axj-Pyp Reductase Inhibitors Medications Current Outpatient Medications: acyclovir [...] Take 1 ta (more content not included)... [facility] NURSNOTEon 08-31-2023 NURSNOTE Pt performed and passed bedside swallow study. RN educated pt on d/c instructions. RN encouraged pt to voice any questions or concerns. Pt verbalizes no questions or concerns at this time. Pt was wheeled off of unit with all of belongings. [facility] Telephoneon 08-24-2023 Telephone [id number] Nadir Beth 1940 M Date Provider Department Center 08/24/2023 PapiRABIA Sweet [facility] Family History Problem Relation Age of Onset Coronary artery disease Father Family Status - Relation Status Age at Father Normal [facility] Office Visiton 07-21-2023 Follow-up visit [id number] Nadir Beth 1940 M Date Provider Department Center 07/21/2023 CLARIBEL VILLALOBOS [facility] Family History Problem Relation Age of Onset Coronary artery disease Father Family Status - Relation Status Age at Father Level of Service:04713 MA OFFICE/OUTPATIENT ESTABLISHED MOD MDM 30-39 MIN Reason for Visit and Comments: Follow-up [617617] Normal [facility] MICRO OTHER TESTSOrdered By: Francisco Bolanos [...] 37 mL/min/1.73 m2 Low >=59mL/min/1. 73 m2 [facility] Chem S Globulin (S) [Mass/Vol] 2.8 g/dL [...] Normal 4.0 - 11.0 E9/L [facility] HemeAutoSS ALBUMINon 03-24-2023 Albumin [Mass/Vol] 3.3 g/dL Critically low 3.4-5.0 Th e [facility] Comment on above: Performed By: #### M ERICK Faith PHOS #### [facility] [address] [address] [address] David Magana GLYCOHEMOGLOBIN A1Con 2022 ADA RECOMMENDATION SEE BELOW Normal The [facility] Comment on above: Result Comment: ADA RECOMMENDED LIMIT 4.0 - 6.0 ADA THERAPEUTIC TARGET < 7.0 ACTION SUGGESTED > 7.0 Performed By: #### A 1C #### [facility] [address] [place] [address] Dr. David Magana Glucose [Mass/Vol] 108 mg/dL Normal [facility] Comment on above: Performed By: #### A 1C #### [facility] [address] [place] [address] Dr. David Magana HbA1c (Bld) [Mass fraction] 5.4 % Normal 4.5-6.2 [facility] Comment on above: Performed By: #### A 1C #### [facility] [address] [place] [address] Dr. David Magana PHOSPHORUSon 03-24-2023 Phosphate [Mass/Vol] 3.6 mg/dL Normal 2.6-4.7 [facility] Comment on above: Performed By: #### M ERICK Faith, PHOS #### [facility] [address] [place] [address] Dr. David Magana PROF CHEM 8 (BAS METB)on Anion gap [Moles/Vol] 11.6 mmol/L Normal [facility] Comment on above: Performed By: #### M Marcell BMP, PHOS #### [facility] [address] [place] [address] Dr. David Magana Calcium [Mass/Vol] 8.9 mg/dL Normal 8.5-10.[address] [facility] Comment on above: Performed By: #### M Marcell BMP, PHOS #### [facility] [address] [place] [address] Dr. David Magana Chloride [Moles/Vol] 107 mmol/L Normal 98-107 [facility] Comment on above: Performed By: #### M Marcell BMP, PHOS #### [facility] [address] [place] [address] Dr. David Magana CO2 [Moles/Vol] 30.8 mmol/L Normal 21.0-32.0 [facility] Comment on above: Performed By: #### M G, BMP, PHOS #### [facility] [address] [address] [address] David Magana Creatinine [Mass/Vol] 1.67 mg/dL Critically high 0.70-1.30 [facility] Comment on above: Performed By: #### M G, BMP, PHOS #### [facility] [address] [address] [address] David Magana EGFR-AF GRENADIAN 48 mL/min/1.73m2 Critically low >=60 [facility] Comment on above: Performed By: #### M G, BMP, PHOS #### [facility] [address] [place] [address] Dr. David Magana EGFR-NON AF GRENADIAN 39 mL/min/1.73m2 Critically low >=60 [facility] Comment on above: Performed By: #### M Marcell BMP, PHOS #### [facility] [address] [place] [address] Dr. David Magana Glucose [Mass/Vol] 128 mg/dL Critically high 74-106 [facility] Comment on above: Performed By: #### M Marcell BMP, PHOS #### [facility] [address] [place] [address] Dr. David Magana Potassium [Moles/Vol] 4.4 mmol/L Normal 3.5-5.1 [facility] Comment on above: Performed By: #### M Marcell BMP, PHOS #### [facility] [address] [address] [address] David Magana Sodium [Moles/Vol] 145 mmol/L Normal 136-145 [facility] Comment on above: Performed By: #### M Marcell BMP, PHOS #### [facility] [address] [place] [address] Dr. David Magana Urea nitrogen [Mass/Vol] 25.0 mg/dL Critically high 7.0-18.0 [facility] Comment on above: Performed By: #### M Marcell, BMP, PHOS #### [facility] [address] [place] [address] Dr. David Magana Urea nitrogen/Creatinine [Mass ratio] 15.0 mg/mg Normal [facility] Comment on above: Performed By: #### M ERICK Faith, PHOS #### [facility] [address] [place] [address] Dr. David Magana VITAMIN D 25 OHon 03-24-2023 VIT D 25-OH 11.6 ng/mL Normal [facility] Comment on above: Performed By: #### C BC #### [facility] [address] [place] [address] Dr. David Magana VIT D RANGES SEE BELOW Normal [facility] Comment on above: Result Comment: <20 ng/mL Vit D deficient 20 - <30 ng/mL Vit D insufficient 30 - 100 ng/mL Vit D sufficient >100 ng/mL Potential Toxicity Performed By: #### C BC #### [facility] [address] [place] [address] Dr. David Magana CBC AUTO DIFFon 02-27-2023 BASO # 0.0 103/ul Normal 0.0-0.1 [facility] Comment on above: Performed By: #### ERICK Jacques, PHOS #### [facility] [address] [place] [address] Dr. David Magana Basophils/100 WBC (Bld) 0.5 % Normal 0.2-2.0 [facility] Comment on above: Performed By: #### ERICK Jacques, PHOS #### [facility] [address] [place] [address] Dr. David Magana EO # 0.7 103/ul Normal 0.0-0.7 [facility] Comment on above: Performed By: #### ERICK Jacques, PHOS #### [facility] [address] [place] [address] Dr. David Magana Eosinophils/100 WBC (Bld) 9.3 % Critically high 0.9-7.0 [facility] Comment on above: Performed By: #### ERICK Jacques, PHOS #### [facility] [address] [place] [address] Dr. David Magana Erythrocyte distribution width (RBC) [Ratio] 14.6 % Normal 11.0-15.0 [facility] Comment on above: Performed By: #### M ERICK Faith, PHOS #### [facility] [address] [place] [address] Dr. David Magana Hematocrit (Bld) [Volume fraction] 41.5 % Critically low 42.0-54.0 [facility] Comment on above: Performed By: #### ERICK Jacques, PHOS #### [facility] [address] [place] [address] Dr. David Magana Hemoglobin (Bld) [Mass/Vol] 13.9 g/dL Critically low 14.0-18.0 [facility] Comment on above: Performed By: #### ERICK Jacques, PHOS #### [facility] [address] [place] [address] Dr. David Magana IG # 0.02 10e3/ul Normal 0.00-0.03 [facility] Comment on above: Performed By: #### ERICK Jacques, PHOS #### [facility] [address] [place] [address] Dr. David Magana IG % 0.3 % Normal 0.0-0.5 [facility] Comment on above: Performed By: #### ERICK Jacques, PHOS #### [facility] [address] [place] [address] Dr. David Magana LYMPH # 1.0 103/ul Critically low 1.2-3.8 [facility] Comment on above: Performed By: #### ERICK Jacques, PHOS #### [facility] [address] [place] [address] Dr. David Magana Lymphocytes/100 WBC (Bld) 13.0 % Critically low 20.5-60.0 [facility] Comment on above: Performed By: #### ERICK Jacques, PHOS #### [facility] [address] [place] [address] Dr. David Magana MANUAL DIFF REQ NO Normal [facility] Comment on above: Performed By: #### M ERICK Faith, PHOS #### [facility] [address] [place] [address] Dr. David Magana MCH (RBC) [Entitic mass] 33.5 pg Normal 25.9-34.0 [facility] Comment on above: Performed By: #### M G, BMP, PHOS #### [facility] [address] [place] [address] Dr. David Magana MCHC (RBC) [Mass/Vol] 33.5 g/dL Normal 29.9-35.2 [facility] Comment on above: Performed By: #### M G, BMP, PHOS #### [facility] [address] [place] [address] Dr. David Magana MCV (RBC) [Entitic vol] 100.0 fL Critically high 80.0-94.0 [facility] Comment on above: Performed By: #### M G, BMP, PHOS #### [facility] [address] [place] [address] Dr. David Magana MONO # 0.8 103/ul Normal 0.3-0.8 [facility] Comment on above: Performed By: #### M G, BMP, PHOS #### [facility] [address] [place] [address] Dr. David Magana Monocytes/100 WBC (Bld) 10.1 % Normal 1.7-12.0 [facility] Comment on above: Performed By: #### M G, BMP, PHOS #### [facility] [address] [place] [address] Dr. David Magana NEUT # 5.0 103/ul Normal 1.4-6.5 [facility] Comment on above: Performed By: #### M G, BMP, PHOS #### [facility] [address] [place] [address] Dr. David Magana Neutrophils/100 WBC (Bld) 66.8 % Normal 43.0-75.0 [facility] Comment on above: Performed By: #### M G, BMP, PHOS #### [facility] [address] [place] [address] Dr. David Magana Platelet mean volume (Bld) [Entitic vol] 11.2 fL Normal 9.5-13.5 [facility] Comment on above: Performed By: #### ERICK Jacques, PHOS #### [facility] [address] [place] [address] Dr. David Magana PLT 187 103/ul Normal 150-450 [facility] Comment on above: Performed By: #### ERICK Jacques, PHOS #### [facility] [address] [place] [address] Dr. David Magana RBC 4.15 106/ul Critically low 4.70-6.10 [facility] Comment on above: Performed By: #### ERICK Jacques, PHOS #### [facility] [address] [place] [address] Dr. David Magana WBC 7.5 103/ul Normal 4.0-11.0 [facility] Comment on above: Performed By: #### ERICK Jacques, PHOS #### [facility] [address] [place] [address] Dr. David Magana PROF 14(COMP METB)on 023 Albumin [Mass/Vol] 3.5 g/dL Normal 3.4-5.0 [facility] Comment on above: Performed By: #### A 1C #### [facility] [address] [place] [address] Dr. David Magana Albumin/Globulin [Mass ratio] 1.1 {ratio} Normal [facility] Comment on above: Performed By: #### A 1C #### [facility] [address] [place] [address] Dr. David Magana ALP [Catalytic activity/Vol] 76 U/L Normal 46-116 [facility] Comment on above: Performed By: #### A 1C #### [facility] [address] [place] [address] Dr. David Magana ALT [Catalytic activity/Vol] 23 U/L Normal 16-63 [facility] Comment on above: Performed By: #### A 1C #### [facility] [address] [address] [address] David Magana Anion gap [Moles/Vol] 13.1 mmol/L Normal [facility] Comment on above: Performed By: #### A 1C #### [facility] [address] [place] [address] Dr. David Magana AST [Catalytic activity/Vol] 17 U/L Normal 15-37 [facility] Comment on above: Performed By: #### A 1C #### [facility] [address] [address] [address] David Magana Bilirubin [Mass/Vol] 0.7 mg/dL Normal 0.2-1.0 [facility] Comment on above: Performed By: #### A 1C #### [facility] [address] [place] [address] Dr. David Magana Calcium [Mass/Vol] 9.0 mg/dL Normal 8.5-10.1 [facility] Comment on above: Performed By: #### A 1C #### [facility] [address] [place] [address] Dr. David Magana Chloride [Moles/Vol] 105 mmol/L Normal 98-107 [facility] Comment on above: Performed By: #### A 1C #### [facility] [address] [place] [address] Dr. Daivd Magana CO2 [Moles/Vol] 29.0 mmol/L Normal 21.0-32.0 [facility] Comment on above: Performed By: #### A 1C #### [facility] [address] [place] [address] Dr. David Magana Creatinine [Mass/Vol] 1.77 mg/dL Critically high 0.70-1.30 [facility] Comment on above: Performed By: #### A 1C #### [facility] [address] [place] [address] Dr. David Magana EGFR-AF GRENADIAN 45 mL/min/1.73m2 Critically low >=60 [facility] Comment on above: Performed By: #### A 1C #### [facility] [address] [place] [address] Dr. David Magana EGFR-NON AF GRENADIAN 37 mL/min/1.73m2 Critically low >=60 [facility] Comment on above: Performed By: #### A 1C #### [facility] [address] [place] [address] Dr. David Magana Globulin (S) [Mass/Vol] 3.3 g/dL Normal [facility] Comment on above: Performed By: #### A 1C #### [facility] [address] [address] [address] David Magana Glucose [Mass/Vol] 135 mg/dL Critically high 74-106 [facility] Comment on above: Performed By: #### A 1C #### [facility] [address] [place] [address] Dr. David Magana Potassium [Moles/Vol] 4.1 mmol/L Normal 3.5-5.1 [facility] Comment on above: Performed By: #### A 1C #### [facility] [address] [place] [address] Dr. David Magana Protein [Mass/Vol] 6.8 g/dL Normal 6.4-8.2 [facility] Comment on above: Performed By: #### A 1C #### [facility] [address] [place] [address] Dr. David Magana Sodium [Moles/Vol] 143 mmol/L Normal 136-145 [facility] Comment on above: Performed By: #### A 1C #### [facility] [address] [place] [address] Dr. David Magana Urea nitrogen [Mass/Vol] 31.0 mg/dL Critically high 7.0-18.0 [facility] Comment on above: Performed By: #### A 1C #### [facility] [address] [place] [address] Dr. David Magana Urea nitrogen/Creatinine [Mass ratio] 17.5 mg/mg Normal [facility] Comment on above: Performed By: #### A 1C #### [facility] [address] [place] [address] Dr. David Magana PROTIMEon 02-27-2023 INR Coag (PPP) [Relative time] 0.99 {INR} Normal [facility] Comment on above: Performed By: #### A 1C #### [facility] [address] [place] [address] Dr. David Magana INR GUIDELINES SEE BELOW Normal [facility] Comment on above: Result Comment: IDANIA RED INR: 2.0 - 3.0 CONDITIONS NOT LISTED BELOW 2.5 - 3.5 FOR PROSTHETIC HEART VALVE REPLACEMENT 2.5 - 3.5 RECURRENT THROMBOSIS Performed By: #### A 1C #### [facility] [address] [place] [address] Dr. David Magana PT Coag (PPP) [Time] 10.5 s Normal 9.0-11.6 [facility] Comment on above: Performed By: #### A 1C #### [facility] [address] [place] [address] Dr. David Magana PTTon 02-27-2023 aPTT Coag (Bld) [Time] 33.0 s Normal 22.3-36.2 [facility] Comment on above: Performed By: #### P OCGLUC #### [facility] [address] [place] [address] Dr. David Magana ALBUMINon 12-28-2022 Albumin [Mass/Vol] 3.6 g/dL Normal 3.4-5.0 [facility] Comment on above: Performed By: #### C BC #### [facility] [address] [place] [address] Dr. David Magana GLYCOHEMOGLOBIN A1Con 2022 ADA RECOMMENDATION SEE BELOW Normal [facility] Comment on above: Result Comment: ADA RECOMMENDED LIMIT 4.0 - 6.0 ADA THERAPEUTIC TARGET < 7.0 ACTION SUGGESTED > 7.0 Performed By: #### P OCGLUC #### [facility] [address] [place] [address] Dr. David Magana Glucose [Mass/Vol] 140 mg/dL Normal [facility] Comment on above: Performed By: #### P OCGLUC #### [facility] [address] [place] [address] Dr. David Magana HbA1c (Bld) [Mass fraction] 6.5 % Critically high 4.5-6.2 [facility] Comment on above: Performed By: #### P OCGLUC #### [facility] [address] [address] [address] David Magana MAGNESIUMon 12-28-2022 Magnesium [Mass/Vol] 2.3 mg/dL Normal 1.8-2.4 [facility] Comment on above: Performed By: #### P OCGLUC #### [facility] [address] [address] [address] David Magana PROF CHEM 8 (BAS METB)on Anion gap [Moles/Vol] 13.2 mmol/L Normal [facility] Comment on above: Performed By: #### P OCGLUC #### [facility] [address] [place] [address] Dr. David Magana Calcium [Mass/Vol] 9.0 mg/dL Normal 8.5-10.1 [facility] Comment on above: Performed By: #### P OCGLUC #### [facility] [address] [address] [address] David Magana Chloride [Moles/Vol] 105 mmol/L Normal 98-107 [facility] Comment on above: Performed By: #### P OCGLUC #### [facility] [address] [address] [address] David Magana CO2 [Moles/Vol] 28.9 mmol/L Normal 21.0-32.0 [facility] Comment on above: Performed By: #### P OCGLUC #### [facility] [address] [address] [address] David Magana Creatinine [Mass/Vol] 1.66 mg/dL Critically high 0.70-1.30 [facility] Comment on above: Performed By: #### P OCGLUC #### [facility] [address] [place] [address] Dr. David Magana EGFR-AF GRENADIAN 48 mL/min/1.73m2 Critically low >=60 [facility] Comment on above: Performed By: #### P OCGLUC #### [facility] [address] [address] [address] David Magana EGFR-NON AF GRENADIAN 40 mL/min/1.73m2 Critically low >=60 [facility] Comment on above: Performed By: #### P OCGLUC #### [facility] [address] [address] [address] David Magana Glucose [Mass/Vol] 123 mg/dL Critically high 74-106 [facility] Comment on above: Performed By: #### P OCGLUC #### [facility] [address] [address] [address] David Magana Potassium [Moles/Vol] 4.1 mmol/L Normal 3.5-5.1 [facility] Comment on above: Performed By: #### P OCGLUC #### [facility] [address] [address] [address] David Magana Sodium [Moles/Vol] 143 mmol/L Normal 136-145 [facility] Comment on above: Performed By: #### P OCGLUC #### [facility] [address] [address] [address] David Magana Urea nitrogen [Mass/Vol] 29.0 mg/dL Critically high 7.0-18.0 [facility] Comment on above: Performed By: #### P OCGLUC #### [facility] [address] [address] [address] David Magana Urea nitrogen/Creatinine [Mass ratio] 17.5 mg/mg Normal [facility] Comment on above: Performed By: #### P OCGLUC #### [facility] [address] [address] [address] David Magana URINE T PROTEIN CREAT RATIOo n 12-28-2022 UR TOTAL PROTEIN <6.0 Normal <=12.0 [facility] Comment on above: Performed By: #### M G, BMP, PHOS #### [facility] [address] [address] [address] David Magana URINE CREAT 41.21 mg/dL Normal 20.00-300.00 [facility] Comment on above: Performed By: #### M ERICK Faith, PHOS #### [facility] [address] [place] [address] Dr. David Magana ALBUMINon 11-16-2022 Albumin [Mass/Vol] 3.3 g/dL Critically low 3.4-5.0 [facility] Comment on above: Performed By: #### C BC #### [facility] [address] [place] [address] Dr. David Magana CREATININE URINEon URINE CREAT 19.69 mg/dL Critically low 20.00-300.00 [facility] Comment on above: Performed By: #### ERICK Jacques, PHOS #### [facility] [address] [place] [address] Dr. David Magana HEMOGLOBINon 11-16-2022 Hemoglobin (Bld) [Mass/Vol] 14.9 g/dL Normal 14.0-18.0 [facility] Comment on above: Performed By: #### M ERICK Faith, PHOS #### [facility] [address] [place] [address] Dr. David Magana MAGNESIUMon 11-16-2022 Magnesium [Mass/Vol] 2.2 mg/dL Normal 1.8-2.4 [facility] Comment on above: Performed By: #### C BC #### [facility] [address] [place] [address] Dr. David Magana PHOSPHORUSon 11-16-2022 Phosphate [Mass/Vol] 3.9 mg/dL Normal 2.6-4.7 [facility] Comment on above: Performed By: #### C BC #### [facility] [address] [place] [address] Dr. David Magana PROF CHEM 8 (BAS METB)on Anion gap [Moles/Vol] 11.9 mmol/L Normal [facility] Comment on above: Performed By: #### C BC #### [facility] [address] [place] [address] Dr. David Magana Calcium [Mass/Vol] 8.8 mg/dL Normal 8.5-10.1 [facility] Comment on above: Performed By: #### C BC #### [facility] [address] [place] [address] Dr. David Magana Chloride [Moles/Vol] 104 mmol/L Normal 98-107 [facility] Comment on above: Performed By: #### C BC #### [facility] [address] [place] [address] Dr. David Magana CO2 [Moles/Vol] 27.4 mmol/L Normal 21.0-32.0 [facility] Comment on above: Performed By: #### C BC #### [facility] [address] [place] [address] Dr. David Magana Creatinine [Mass/Vol] 1.68 mg/dL Critically high 0.70-1.30 [facility] Comment on above: Performed By: #### C BC #### [facility] [address] [place] [address] Dr. David Magana EGFR-AF GRENADIAN 48 mL/min/1.73m2 Critically low >=60 [facility] Comment on above: Performed By: #### C BC #### [facility] [address] [place] [address] Dr. David Magana EGFR-NON AF GRENADIAN 39 mL/min/1.73m2 Critically low >=60 [facility] Comment on above: Performed By: #### C BC #### [facility] [address] [place] [address] Dr. David Magana Glucose [Mass/Vol] 212 mg/dL Critically high 74-106 [facility] Comment on above: Performed By: #### C BC #### [facility] [address] [place] [address] Dr. David Magana Potassium [Moles/Vol] 4.3 mmol/L Normal 3.5-5.1 [facility] Comment on above: Performed By: #### C BC #### [facility] [address] [place] [address] Dr. David Magana Sodium [Moles/Vol] 139 mmol/L Normal 136-145 [facility] Comment on above: Performed By: #### C BC #### [facility] [address] [place] [address] Dr. David Magana Urea nitrogen [Mass/Vol] 25.0 mg/dL Critically high 7.0-18.0 [facility] Comment on above: Performed By: #### C BC #### [facility] [address] [place] [address] Dr. David Magana Urea nitrogen/Creatinine [Mass ratio] 14.9 mg/mg Normal [facility] Comment on above: Performed By: #### C BC #### [facility] [address] [place] [address] Dr. David Magana PROTEIN RAND URINEon 023 UR PROT <5.0 Normal <=11.9 [facility] Comment on above: Performed By: #### ERICK Jacques PHOS #### [facility] [address] [place] [address] Dr. David Magana US CHANI DOP LEG [...] by: CLOVER PEREZ Date: 2022-11-02 16:21 Normal [facility] BNPon 07-22-2022 Natriuretic peptide B (Bld) [Mass/Vol] 2143.0 pg/mL Critically high <=1,800.0 [facility] Comment on above: Performed By: #### ERICK Jacques, PHOS #### [facility] [address] [place] [address] Dr. David Magana CBC AUTO DIFFon 07-22-2022 BASO # 0.0 103/ul Normal 0.0-0.1 [facility] Comment on above: Performed By: #### A 1C #### [facility] [address] [address] [address] David Magana Basophils/100 WBC (Bld) 0.3 % Normal 0.2-2.0 [facility] Comment on above: Performed By: #### A 1C #### [facility] [address] [address] [address] David Magana EO # 0.3 103/ul Normal 0.0-0.7 [facility] Comment on above: Performed By: #### A 1C #### [facility] [address] [address] [address] David Magana Eosinophils/100 WBC (Bld) 2.4 % Normal 0.9-7.0 [facility] Comment on above: Performed By: #### A 1C #### [facility] [address] [place] [address] Dr. David Magana Erythrocyte distribution width (RBC) [Ratio] 13.4 % Normal 11.0-15.0 [facility] Comment on above: Performed By: #### A 1C #### [facility] [address] [place] [address] Dr. David Magana Hematocrit (Bld) [Volume fraction] 42.7 % Normal 42.0-54.0 [facility] Comment on above: Performed By: #### A 1C #### [facility] [address] [place] [address] Dr. David Magana Hemoglobin (Bld) [Mass/Vol] 14.2 g/dL Normal 14.0-18.0 [facility] Comment on above: Performed By: #### A 1C #### [facility] [address] [place] [address] Dr. David Magana IG # 0.18 10e3/ul Critically high 0.00-0.03 [facility] Comment on above: Performed By: #### A 1C #### [facility] [address] [place] [address] Dr. David Magana IG % 1.6 % Critically high 0.0-0.5 [facility] Comment on above: Performed By: #### A 1C #### [facility] [address] [address] [address] David Magana LYMPH # 0.9 103/ul Critically low 1.2-3.8 [facility] [place] Comment on above: Performed By: #### A 1C #### [facility] [address] [place] [address] Dr. David Magana Lymphocytes/100 WBC (Bld) 8.1 % Critically low 20.5-60.0 [facility] Comment on above: Performed By: #### A 1C #### [facility] [address] [place] [address] Dr. David Magana MANUAL DIFF REQ NO Normal [facility] Comment on above: Performed By: #### A 1C #### [facility] [address] [place] [address] Dr. David Magana MCH (RBC) [Entitic mass] 33.3 pg Normal 25.9-34.0 [facility] Comment on above: Performed By: #### A 1C #### [facility] [address] [place] [address] Dr. David Magana MCHC (RBC) [Mass/Vol] 33.3 g/dL Normal 29.9-35.2 [facility] Comment on above: Performed By: #### A 1C #### [facility] [address] [place] [address] Dr. David Magana MCV (RBC) [Entitic vol] 100.2 fL Critically high 80.0-94.0 [facility] Comment on above: Performed By: #### A 1C #### [facility] [address] [place] [address] Dr. David Magana MONO # 1.2 103/ul Critically high 0.3-0.8 [facility] Comment on above: Performed By: #### A 1C #### [facility] [address] [place] [address] Dr. David Magana Monocytes/100 WBC (Bld) 10.5 % Normal 1.7-12.0 [facility] Comment on above: Performed By: #### A 1C #### [facility] [address] [address] [address] David Magana NEUT # 8.9 103/ul Critically high 1.4-6.5 [facility] Comment on above: Performed By: #### A 1C #### [facility] [address] [address] [address] David Magana Neutrophils/100 WBC (Bld) 77.1 % Critically high 43.0-75.0 [facility] Comment on above: Performed By: #### A 1C #### [facility] [address] [address] [address] David Magana Platelet mean volume (Bld) [Entitic vol] 11.3 fL Normal 9.5-13.5 [facility] Comment on above: Performed By: #### A 1C #### [facility] [address] [place] [address] Dr. David Magana PLT 175 103/ul Normal 150-450 [facility] Comment on above: Performed By: #### A 1C #### [facility] [address] [address] [address] David Magana RBC 4.26 106/ul Critically low 4.70-6.10 [facility] Comment on above: Performed By: #### A 1C #### [facility] [address] [place] [address] Dr. David Magana WBC 11.5 103/ul Critically high 4.0-11.0 [facility] Comment on above: Performed By: #### A 1C #### [facility] [address] [place] [address] Dr. David Magana PROF 14(COMP METB)on 022 Albumin [Mass/Vol] 2.6 g/dL Critically low 3.4-5.0 [facility] Comment on above: Performed By: #### M ERICK Faith PHOS #### [facility] [address] [place] [address] Dr. David Magana Albumin/Globulin [Mass ratio] 0.9 {ratio} Normal [facility] Comment on above: Performed By: #### M G, BMP, PHOS #### [facility] [address] [address] [address] David Magana ALP [Catalytic activity/Vol] 49 U/L Normal 46-116 [facility] Comment on above: Performed By: #### M G, BMP, PHOS #### [facility] [address] [place] [address] Dr. David Magana ALT [Catalytic activity/Vol] 25 U/L Normal 16-63 [facility] Comment on above: Performed By: #### M G, BMP, PHOS #### [facility] [address] [place] [address] Dr. David Magana Anion gap [Moles/Vol] 12.8 mmol/L Normal [facility] Comment on above: Performed By: #### M G, BMP, PHOS #### [facility] [address] [place] [address] Dr. David Magana AST [Catalytic activity/Vol] 9 U/L Critically low 15-37 [facility] Comment on above: Performed By: #### M G, BMP, PHOS #### [facility] [address] [address] [address] David Magana Bilirubin [Mass/Vol] 0.5 mg/dL Normal 0.2-1.0 [facility] Comment on above: Performed By: #### M G, BMP, PHOS #### [facility] [address] [address] [address] David Magana Calcium [Mass/Vol] 8.3 mg/dL Critically low 8.5-10.1 [facility] Comment on above: Performed By: #### M G, BMP, PHOS #### [facility] [address] [place] [address] Dr. David Magana Chloride [Moles/Vol] 105 mmol/L Normal 98-107 [facility] Comment on above: Performed By: #### M G, BMP, PHOS #### [facility] [address] [address] [address] David Magana CO2 [Moles/Vol] 24.2 mmol/L Normal 21.0-32.0 [facility] Comment on above: Performed By: #### M ERICK Faith, PHOS #### [facility] [address] [place] [address] Dr. David Magana Creatinine [Mass/Vol] 1.28 mg/dL Normal 0.70-1.30 [facility] Comment on above: Performed By: #### ERICK Jacques, PHOS #### [facility] [address] [place] [address] Dr. David Magana EGFR-AF GRENADIAN >60 Normal >=60 [facility] Comment on above: Performed By: #### ERICK Jacques, PHOS #### [facility] [address] [place] [address] Dr. David Magana EGFR-NON AF GRE[place]DIAN 54 mL/min/1.73m2 Critically low >=60 [facility] Comment on above: Performed By: #### ERICK Jacques, PHOS #### [facility] [address] [place] [address] Dr. David Magana Globulin (S) [Mass/Vol] 2.9 g/dL Normal [facility] Comment on above: Performed By: #### ERICK Jacques, PHOS #### [facility] [address] [place] [address] Dr. David Magana Glucose [Mass/Vol] 205 mg/dL Critically high 74-106 [facility] Comment on above: Performed By: #### ERICK Jacques, PHOS #### [facility] [address] [place] [address] Dr. David Magana Potassium [Moles/Vol] 4.0 mmol/L Normal 3.5-5.1 [facility] Comment on above: Performed By: #### ERICK Jacques, PHOS #### [facility] [address] [place] [address] Dr. David Magana Protein [Mass/Vol] 5.5 g/dL Critically low 6.4-8.2 [facility] Comment on above: Performed By: #### ERICK Jacques, PHOS #### [facility] [address] [place] [address] Dr. David Magana Sodium [Moles/Vol] 138 mmol/L Normal 136-145 [facility] Comment on above: Performed By: #### M ERICK Faith, PHOS #### [facility] [address] [place] [address] Dr. David Magana Urea nitrogen [Mass/Vol] 36.0 mg/dL Critically high 7.0-18.0 [facility] Comment on above: Performed By: #### ERICK Jacques, PHOS #### [facility] [address] [place] [address] Dr. David Magana Urea nitrogen/Creatinine [Mass ratio] 28.1 mg/mg Normal [facility] Comment on above: Performed By: #### M ERICK Faith, PHOS #### [facility] [address] [place] [address] Dr. David Magana BNPon 07-21-2022 Natriuretic peptide B (Bld) [Mass/Vol] 3485.0 pg/mL Critically high <=1,800.0 [facility] Comment on above: Result Comment: repe ated Performed By: #### A 1C #### [facility] [address] [place] [address] Dr. David Magana CBC AUTO DIFFon 07-21-2022 BASO # 0.0 103/ul Normal 0.0-0.1 [facility] Comment on above: Performed By: #### C BC #### [facility] [address] [place] [address] Dr. David Magana Basophils/100 WBC (Bld) 0.3 % Normal 0.2-2.0 [facility] Comment on above: Performed By: #### C BC #### [facility] [address] [place] [address] Dr. David Magana EO # 0.2 103/ul Normal 0.0-0.7 [facility] Comment on above: Performed By: #### C BC #### [facility] [address] [place] [address] Dr. David Magana Eosinophils/100 WBC (Bld) 1.9 % Normal 0.9-7.0 [facility] Comment on above: Performed By: #### C BC #### [facility] [address] [place] [address] Dr. David Magana Erythrocyte distribution width (RBC) [Ratio] 13.4 % Normal 11.0-15.0 [facility] Comment on above: Performed By: #### C BC #### [facility] [address] [place] [address] Dr. David Magana Hematocrit (Bld) [Volume fraction] 42.5 % Normal 42.0-54.0 [facility] Comment on above: Performed By: #### C BC #### [facility] [address] [place] [address] Dr. David Magana Hemoglobin (Bld) [Mass/Vol] 14.2 g/dL Normal 14.0-18.0 [facility] Comment on above: Performed By: #### C BC #### [facility] [address] [place] [address] Dr. David Magana IG # 0.22 10e3/ul Critically high 0.00-0.03 [facility] Comment on above: Performed By: #### C BC #### [facility] [address] [place] [address] Dr. David Magana IG % 2.1 % Critically high 0.0-0.5 [facility] Comment on above: Performed By: #### C BC #### [facility] [address] [place] [address] Dr. David Magana LYMPH # 0.8 103/ul Critically low 1.2-3.8 [facility] Comment on above: Performed By: #### C BC #### [facility] [address] [place] [address] Dr. David Magana Lymphocytes/100 WBC (Bld) 7.7 % Critically low 20.5-60.0 [facility] Comment on above: Performed By: #### C BC #### [facility] [address] [place] [address] Dr. David Magana MANUAL DIFF REQ NO Normal [facility] Comment on above: Performed By: #### C BC #### [facility] [address] [place] [address] Dr. David Magana MCH (RBC) [Entitic mass] 33.0 pg Normal 25.9-34.0 [facility] Comment on above: Performed By: #### C BC #### [facility] [address] [place] [address] Dr. David Magana MCHC (RBC) [Mass/Vol] 33.4 g/dL Normal 29.9-35.2 [facility] Comment on above: Performed By: #### C BC #### [facility] [address] [place] [address] Dr. David Magana MCV (RBC) [Entitic vol] 98.8 fL Critically high 80.0-94.0 [facility] Comment on above: Performed By: #### C BC #### [facility] [address] [place] [address] Dr. David Magana MONO # 1.0 103/ul Critically high 0.3-0.8 [facility] Comment on above: Performed By: #### C BC #### [facility] [address] [place] [address] Dr. David Magana Monocytes/100 WBC (Bld) 9.7 % Normal 1.7-12.0 [facility] Comment on above: Performed By: #### C BC #### [facility] [address] [place] [address] Dr. David Magana NEUT # 8.1 103/ul Critically high 1.4-6.5 [facility] Comment on above: Performed By: #### C BC #### [facility] [address] [place] [address] Dr. David Magana Neutrophils/100 WBC (Bld) 78.3 % Critically high 43.0-75.0 [facility] Comment on above: Performed By: #### C BC #### [facility] [address] [place] [address] Dr. David Magana Platelet mean volume (Bld) [Entitic vol] 10.7 fL Normal 9.5-13.5 [facility] Comment on above: Performed By: #### C BC #### [facility] [address] [place] [address] Dr. David Magana PLT 177 103/ul Normal 150-450 [facility] Comment on above: Performed By: #### C BC #### [facility] [address] [place] [address] Dr. David Magana RBC 4.30 106/ul Critically low 4.70-6.10 [facility] Comment on above: Performed By: #### C BC #### [facility] [address] [place] [address] Dr. David Magana WBC 10.4 103/ul Normal 4.0-11.0 [facility] Comment on above: Performed By: #### C BC #### [facility] [address] [place] [address] Dr. David Magana PROF 14(COMP METB)on 022 Albumin [Mass/Vol] 2.6 g/dL Critically low 3.4-5.0 [facility] Comment on above: Performed By: #### A 1C #### [facility] [address] [place] [address] Dr. David Magana Albumin/Globulin [Mass ratio] 1.0 {ratio} Normal [facility] Comment on above: Performed By: #### A 1C #### [facility] [address] [place] [address] Dr. David Magana ALP [Catalytic activity/Vol] 50 U/L Normal 46-116 [facility] Comment on above: Performed By: #### A 1C #### [facility] [address] [place] [address] Dr. David Magana ALT [Catalytic activity/Vol] 28 U/L Normal 16-63 [facility] Comment on above: Performed By: #### A 1C #### [facility] [address] [place] [address] Dr. David Magana Anion gap [Moles/Vol] 11.4 mmol/L Normal [facility] Comment on above: Performed By: #### A 1C #### [facility] [address] [address] [address] David Magana AST [Catalytic activity/Vol] 13 U/L Critically low 15-37 [facility] Comment on above: Performed By: #### A 1C #### [facility] [address] [address] [address] David Magana Bilirubin [Mass/Vol] 0.4 mg/dL Normal 0.2-1.0 [facility] Comment on above: Performed By: #### A 1C #### [facility] [address] [address] [address] David Mgaana Calcium [Mass/Vol] 8.4 mg/dL Critically low 8.5-10.1 [facility] Comment on above: Performed By: #### A 1C #### [facility] [address] [address] [address] David Magana Chloride [Moles/Vol] 107 mmol/L Normal 98-107 [facility] Comment on above: Performed By: #### A 1C #### [facility] [address] [address] [address] David Magana CO2 [Moles/Vol] 24.6 mmol/L Normal 21.0-32.0 [facility] Comment on above: Performed By: #### A 1C #### [facility] [address] [address] [address] David Magana Creatinine [Mass/Vol] 1.26 mg/dL Normal 0.70-1.30 [facility] Comment on above: Performed By: #### A 1C #### [facility] [address] [address] [address] David Magana EGFR-AF GRENADIAN >60 Normal >=60 [facility] Comment on above: Performed By: #### A 1C #### [facility] [address] [address] [address] David Magana EGFR-NON AF GRENADIAN 55 mL/min/1.73m2 Critically low >=60 [facility] Comment on above: Performed By: #### A 1C #### [facility] [address] [address] [address] David Magana Globulin (S) [Mass/Vol] 2.7 g/dL Normal [facility] Comment on above: Performed By: #### A 1C #### [facility] [address] [address] [address] David Magana Glucose [Mass/Vol] 203 mg/dL Critically high 74-106 [facility] Comment on above: Performed By: #### A 1C #### [facility] [address] [place] [address] Dr. David Magana Potassium [Moles/Vol] 4.0 mmol/L Normal 3.5-5.1 [facility] Comment on above: Performed By: #### A 1C #### [facility] [address] [place] [address] Dr. David Magana Protein [Mass/Vol] 5.3 g/dL Critically low 6.4-8.2 [facility] Comment on above: Performed By: #### A 1C #### [facility] [address] [place] [address] Dr. David Magana Sodium [Moles/Vol] 139 mmol/L Normal 136-145 [facility] Comment on above: Performed By: #### A 1C #### [facility] [address] [place] [address] Dr. David Magana Urea nitrogen [Mass/Vol] 33.0 mg/dL Critically high 7.0-18.0 [facility] Comment on above: Performed By: #### A 1C #### [facility] [address] [place] [address] Dr. David Magana Urea nitrogen/Creatinine [Mass ratio] 26.2 mg/mg Normal [facility] Comment on above: Performed By: #### A 1C #### [facility] [address] [place] [address] Dr. David Magana BNPon 07-20-2022 Natriuretic peptide B (Bld) [Mass/Vol] 7478.0 pg/mL Critically high <=1,800.0 [facility] Comment on above: Performed By: #### A 1C #### [facility] [address] [place] [address] Dr. David Magana CBC AUTO DIFFon 07-20-2022 BASO # 0.1 103/ul Normal 0.0-0.1 [facility] Comment on above: Performed By: #### M ERICK Faith, PHOS #### [facility] [address] [place] [address] Dr. David Magana Basophils/100 WBC (Bld) 0.8 % Normal 0.2-2.0 [facility] Comment on above: Performed By: #### M ERICK Faith, PHOS #### [facility] [address] [place] [address] Dr. David Magana EO # 0.1 103/ul Normal 0.0-0.7 [facility] Comment on above: Performed By: #### M ERICK Faith, PHOS #### [facility] [address] [place] [address] Dr. David Magana Eosinophils/100 WBC (Bld) 0.6 % Critically low 0.9-7.0 [facility] Comment on above: Performed By: #### M ERICK Faith, PHOS #### [facility] [address] [place] [address] Dr. David Magana Erythrocyte distribution width (RBC) [Ratio] 13.4 % Normal 11.0-15.0 [facility] Comment on above: Performed By: #### ERICK Jacques, PHOS #### [facility] [address] [place] [address] Dr. David Magana Hematocrit (Bld) [Volume fraction] 43.2 % Normal 42.0-54.0 [facility] Comment on above: Performed By: #### M ERICK Faith, PHOS #### [facility] [address] [place] [address] Dr. David Magana Hemoglobin (Bld) [Mass/Vol] 14.2 g/dL Normal 14.0-18.0 [facility] Comment on above: Performed By: #### ERICK Jacques, PHOS #### [facility] [address] [address] [address] David Magana IG # 0.21 10e3/ul Critically high 0.00-0.03 [facility] Comment on above: Performed By: #### M Marcell, BMP, PHOS #### [facility] [address] [address] [address] David Magana IG % 2.0 % Critically high 0.0-0.5 [facility] Comment on above: Performed By: #### M G, BMP, PHOS #### [facility] [address] [place] [address] Dr. David Magana LYMPH # 0.8 103/ul Critically low 1.2-3.8 [facility] Comment on above: Performed By: #### M Marcell BMP, PHOS #### [facility] [address] [place] [address] Dr. David Magana Lymphocytes/100 WBC (Bld) 7.7 % Critically low 20.5-60.0 [facility] Comment on above: Performed By: #### M Marcell BMP, PHOS #### [facility] [address] [address] [address] David Magana MANUAL DIFF REQ NO Normal [facility] Comment on above: Performed By: #### M Marcell, BMP, PHOS #### [facility] [address] [place] [address] Dr. David Magana MCH (RBC) [Entitic mass] 33.2 pg Normal 25.9-34.0 [facility] Comment on above: Performed By: #### M G, BMP, PHOS #### [facility] [address] [place] [address] Dr. David Magana MCHC (RBC) [Mass/Vol] 32.9 g/dL Normal 29.9-35.2 [facility] Comment on above: Performed By: #### M G, BMP, PHOS #### [facility] [address] [place] [address] Dr. David Magana MCV (RBC) [Entitic vol] 100.9 fL Critically high 80.0-94.0 [facility] Comment on above: Performed By: #### ERICK Jacques, PHOS #### [facility] [address] [place] [address] Dr. David Magana MONO # 1.0 103/ul Critically high 0.3-0.8 [facility] Comment on above: Performed By: #### ERICK Jacques, PHOS #### [facility] [address] [place] [address] Dr. David Magana Monocytes/100 WBC (Bld) 10.0 % Normal 1.7-12.0 [facility] Comment on above: Performed By: #### ERICK Jacques, PHOS #### [facility] [address] [place] [address] Dr. David Magana NEUT # 8.1 103/ul Critically high 1.4-6.5 [facility] Comment on above: Performed By: #### ERIKC Jacques, PHOS #### [facility] [address] [place] [address] Dr. David Magana Neutrophils/100 WBC (Bld) 78.9 % Critically high 43.0-75.0 [facility] Comment on above: Performed By: #### ERICK Jacques, PHOS #### [facility] [address] [place] [address] Dr. David Magana Platelet mean volume (Bld) [Entitic vol] 10.8 fL Normal 9.5-13.5 [facility] Comment on above: Performed By: #### ERICK Jacques, PHOS #### [facility] [address] [place] [address] Dr. David Magana PLT 172 103/ul Normal 150-450 [facility] Comment on above: Performed By: #### ERICK Jacques, PHOS #### [facility] [address] [place] [address] Dr. David Magana RBC 4.28 106/ul Critically low 4.70-6.10 [facility] Comment on above: Performed By: #### ERICK Jacques, PHOS #### [facility] [address] [place] [address] Dr. David Magana WBC 10.3 103/ul Normal 4.0-11.0 [facility] Comment on above: Performed By: #### ERICK Jacques PHOS #### [facility] [address] [place] [address] Dr. David Magana CULTURE URINEon 07-20-2022 CULTURE [...] F Trimethoprim/Sulfame thoxazole >=320 R F Normal [facility] Comment on above: Performed By: #### ERICK Jacques, PHOS #### [facility] [address] [place] [address] Dr. David Magana PROF 14(COMP METB)on 022 Albumin [Mass/Vol] 2.6 g/dL Critically low 3.4-5.0 [facility] Comment on above: Performed By: #### A 1C #### [facility] [address] [place] [address] Dr. David Magana Albumin/Globulin [Mass ratio] 0.9 {ratio} Normal [facility] Comment on above: Performed By: #### A 1C #### [facility] [address] [place] [address] Dr. David Magana ALP [Catalytic activity/Vol] 48 U/L Normal 46-116 [facility] Comment on above: Performed By: #### A 1C #### [facility] [address] [place] [address] Dr. David Magana ALT [Catalytic activity/Vol] 27 U/L Normal 16-63 [facility] Comment on above: Performed By: #### A 1C #### [facility] [address] [address] [address] David Magana Anion gap [Moles/Vol] 13.4 mmol/L Normal [facility] Comment on above: Performed By: #### A 1C #### [facility] [address] [address] [address] David Magana AST [Catalytic activity/Vol] 22 U/L Normal 15-37 [facility] Comment on above: Performed By: #### A 1C #### [facility] [address] [address] [address] David Magana Bilirubin [Mass/Vol] 0.5 mg/dL Normal 0.2-1.0 [facility] Comment on above: Performed By: #### A 1C #### [facility] [address] [place] [address] Dr. David Magana Calcium [Mass/Vol] 8.3 mg/dL Critically low 8.5-10.1 [facility] Comment on above: Performed By: #### A 1C #### [facility] [address] [place] [address] Dr. David Magana Chloride [Moles/Vol] 105 mmol/L Normal 98-107 [facility] Comment on above: Performed By: #### A 1C #### [facility] [address] [place] [address] Dr. David Magana CO2 [Moles/Vol] 21.0 mmol/L Normal 21.0-32.0 [facility] Comment on above: Performed By: #### A 1C #### [facility] [address] [place] [address] Dr. David Magana Creatinine [Mass/Vol] 1.38 mg/dL Critically high 0.70-1.30 [facility] Comment on above: Performed By: #### A 1C #### [facility] [address] [address] [address] David Magana EGFR-AF GRENADIAN 60 mL/min/1.73m2 Normal >=60 [facility] Comment on above: Performed By: #### A 1C #### [facility] [address] [address] [address] David Magana EGFR-NON AF GRENADIAN 49 mL/min/1.73m2 Critically low >=60 [facility] Comment on above: Performed By: #### A 1C #### [facility] [address] [address] [address] David Magana Globulin (S) [Mass/Vol] 2.8 g/dL Normal [facility] Comment on above: Performed By: #### A 1C #### [facility] [address] [address] [address] David Magana Glucose [Mass/Vol] 156 mg/dL Critically high 74-106 [facility] Comment on above: Performed By: #### A 1C #### [facility] [address] [address] [address] David Magana Potassium [Moles/Vol] 4.4 mmol/L Normal 3.5-5.1 [facility] Comment on above: Performed By: #### A 1C #### [facility] [address] [address] [address] David Magana Protein [Mass/Vol] 5.4 g/dL Critically low 6.4-8.2 [facility] Comment on above: Performed By: #### A 1C #### [facility] [address] [address] [address] David Magana Sodium [Moles/Vol] 135 mmol/L Critically low 136-145 [facility] Comment on above: Performed By: #### A 1C #### [facility] [address] [address] [address] David Magana Urea nitrogen [Mass/Vol] 40.0 mg/dL Critically high 7.0-18.0 [facility] Comment on above: Performed By: #### A 1C #### [facility] [address] [address] [address] David Magana Urea nitrogen/Creatinine [Mass ratio] 29.0 mg/mg [facility] Comment on above: Performed By: #### A 1C #### [facility] [address] [place] [address] Dr. David Magana BNPon 07-19-2022 Natriuretic peptide B (Bld) [Mass/Vol] 60844.0 pg/mL Critically high <=1,800.0 [facility] Comment on above: Performed By: #### C VDTBH #### [facility] [address] [place] [address] Dr. David Magana CBC AUTO DIFFon 07-19-2022 BASO # 0.0 103/ul Normal 0.0-0.1 [facility] Comment on above: Performed By: #### C BC #### [facility] [address] [place] [address] Dr. David Magana Basophils/100 WBC (Bld) 0.3 % Normal 0.2-2.0 [facility] Comment on above: Performed By: #### C BC #### [facility] [address] [place] [address] Dr. David Magana EO # 0.0 103/ul Normal 0.0-0.7 [facility] Comment on above: Performed By: #### C BC #### [facility] [address] [place] [address] Dr. David Magana Eosinophils/100 WBC (Bld) 0.2 % Critically low 0.9-7.0 [facility] Comment on above: Performed By: #### C BC #### [facility] [address] [place] [address] Dr. David Magana Erythrocyte distribution width (RBC) [Ratio] 13.4 % Normal 11.0-15.0 [facility] Comment on above: Performed By: #### C BC #### [facility] [address] [place] [address] Dr. David Magana Hematocrit (Bld) [Volume fraction] 43.4 % Normal 42.0-54.0 [facility] Comment on above: Performed By: #### C BC #### [facility] [address] [place] [address] Dr. David Magana Hemoglobin (Bld) [Mass/Vol] 14.6 g/dL Normal 14.0-18.0 [facility] Comment on above: Performed By: #### C BC #### [facility] [address] [place] [address] Dr. David Magana IG # 0.18 10e3/ul Critically high 0.00-0.03 [facility] Comment on above: Performed By: #### C BC #### [facility] [address] [place] [address] Dr. David Magana IG % 1.5 % Critically high 0.0-0.5 [facility] Comment on above: Performed By: #### C BC #### [facility] [address] [place] [address] Dr. David Magana LYMPH # 0.8 103/ul Critically low 1.2-3.8 [facility] Comment on above: Performed By: #### C BC #### [facility] [address] [place] [address] Dr. David Magana Lymphocytes/100 WBC (Bld) 6.6 % Critically low 20.5-60.0 [facility] Comment on above: Performed By: #### C BC #### [facility] [address] [place] [address] Dr. David Magana MANUAL DIFF REQ NO Normal [facility] Comment on above: Performed By: #### C BC #### [facility] [address] [place] [address] Dr. David Magana MCH (RBC) [Entitic mass] 33.7 pg Normal 25.9-34.0 [facility] Comment on above: Performed By: #### C BC #### [facility] [address] [place] [address] Dr. David Magana MCHC (RBC) [Mass/Vol] 33.6 g/dL Normal 29.9-35.2 [facility] Comment on above: Performed By: #### C BC #### [facility] [address] [place] [address] Dr. David Magana MCV (RBC) [Entitic vol] 100.2 fL Critically high 80.0-94.0 [facility] Comment on above: Performed By: #### C BC #### [facility] [address] [address] [address] David Magana MONO # 1.1 103/ul Critically high 0.3-0.8 [facility] Comment on above: Performed By: #### C BC #### [facility] [address] [address] [address] David Magana Monocytes/100 WBC (Bld) 9.3 % Normal 1.7-12.0 [facility] Comment on above: Performed By: #### C BC #### [facility] [address] [address] [address] David Magana NEUT # 9.6 103/ul Critically high 1.4-6.5 [facility] Comment on above: Performed By: #### C BC #### [facility] [address] [place] [address] Dr. David Magana Neutrophils/100 WBC (Bld) 82.1 % Critically high 43.0-75.0 [facility] Comment on above: Performed By: #### C BC #### [facility] [address] [place] [address] Dr. David Magana Platelet mean volume (Bld) [Entitic vol] 10.8 fL Normal 9.5-13.5 [facility] Comment on above: Performed By: #### C BC #### [facility] [address] [place] [address] Dr. David Magana PLT 202 103/ul Normal 150-450 [facility] Comment on above: Performed By: #### C BC #### [facility] [address] [address] [address] David Magana RBC 4.33 106/ul Critically low 4.70-6.10 [facility] Comment on above: Performed By: #### C BC #### [facility] [address] [address] [address] David Magana WBC 11.7 103/ul Critically high 4.0-11.0 [facility] Comment on above: Performed By: #### C BC #### [facility] [address] [place] [address] Dr. David Magana PROF 14(COMP METB)on 022 Albumin [Mass/Vol] 3.4 g/dL Normal 3.4-5.0 [facility] Comment on above: Performed By: #### A 1C #### [facility] [address] [place] [address] Dr. David Magana Albumin/Globulin [Mass ratio] 1.1 {ratio} Normal [facility] Comment on above: Performed By: #### A 1C #### [facility] [address] [place] [address] Dr. David Magana ALP [Catalytic activity/Vol] 63 U/L Normal 46-116 [facility] Comment on above: Performed By: #### A 1C #### [facility] [address] [place] [address] Dr. David Magana ALT [Catalytic activity/Vol] 34 U/L Normal 16-63 [facility] Comment on above: Performed By: #### A 1C #### [facility] [address] [place] [address] Dr. David Magana Anion gap [Moles/Vol] 20.9 mmol/L Normal [facility] Comment on above: Performed By: #### A 1C #### [facility] [address] [place] [address] Dr. David Magana AST [Catalytic activity/Vol] 18 U/L Normal 15-37 [facility] Comment on above: Performed By: #### A 1C #### [facility] [address] [place] [address] Dr. David Magana Bilirubin [Mass/Vol] 0.5 mg/dL Normal 0.2-1.0 [facility] Comment on above: Performed By: #### A 1C #### [facility] [address] [place] [address] Dr. David Magana Calcium [Mass/Vol] 8.5 mg/dL Normal 8.5-10.1 [facility] Comment on above: Performed By: #### A 1C #### [facility] [address] [address] [address] David Magana Chloride [Moles/Vol] 99 mmol/L Normal 98-107 [facility] Comment on above: Performed By: #### A 1C #### [facility] [address] [address] [address] David Magana CO2 [Moles/Vol] 19.1 mmol/L Critically low 21.0-32.0 [facility] Comment on above: Performed By: #### A 1C #### [facility] [address] [address] [address] David Magana Creatinine [Mass/Vol] 1.80 mg/dL Critically high 0.70-1.30 [facility] Comment on above: Performed By: #### A 1C #### [facility] [address] [address] [address] David Magana EGFR-AF GRE[place]DIAN 44 mL/min/1.73m2 Critically low >=60 [facility] Comment on above: Performed By: #### A 1C #### [facility] [address] [address] [address] David Magana EGFR-NON AF GRE[place]DIAN 36 mL/min/1.73m2 Critically low >=60 [facility] Comment on above: Performed By: #### A 1C #### [facility] [address] [address] [address] David Magana Globulin (S) [Mass/Vol] 3.2 g/dL Normal [facility] Comment on above: Performed By: #### A 1C #### [facility] [address] [address] [address] David Magana Glucose [Mass/Vol] 287 mg/dL Critically high 74-106 [facility] Comment on above: Performed By: #### A 1C #### [facility] [address] [address] [address] David Magana Potassium [Moles/Vol] 5.0 mmol/L Normal 3.5-5.1 [facility] Comment on above: Performed By: #### A 1C #### [facility] [address] [address] [address] David Magana Protein [Mass/Vol] 6.6 g/dL Normal 6.4-8.2 [facility] Comment on above: Performed By: #### A 1C #### [facility] [address] [address] [address] David Magana Sodium [Moles/Vol] 134 mmol/L Critically low 136-145 [facility] Comment on above: Performed By: #### A 1C #### [facility] [address] [address] [address] David Magana Urea nitrogen [Mass/Vol] 51.0 mg/dL Critically high 7.0-18.0 [facility] Comment on above: Performed By: #### A 1C #### [facility] [address] [address] [address] David Magana Urea nitrogen/Creatinine [Mass ratio] 28.3 mg/mg [facility] Comment on above: Performed By: #### A 1C #### [facility] [address] [address] [address] [facility] MODE NASAL CANNULA [facility] Comment on above: Performed By: #### A 1C #### [facility] [address] [address] [address] David Magana ALLENS TEST Positive [facility] Comment on above: Performed By: #### A 1C #### [facility] [address] [address] [address] David Magana Base excess Calc (Bld) [Moles/Vol] -9.0000 mmol/L Critically low -2.0-2.0 [facility] Comment on above: Performed By: #### A 1C #### [facility] [address] [place] [address] Dr. David Magana BIPAP PRESSURE Normal [facility] Comment on above: Performed By: #### A 1C #### [facility] [address] [place] [address] Dr. David Magana CPAP [facility] Comment on above: Performed By: #### A 1C #### [facility] [address] [address] [address] David Magana FIO2 Normal [facility] Comment on above: Performed By: #### A 1C #### [facility] [address] [place] [address] Dr. David Magana HCO3 (Bld) [Moles/Vol] 18.4 mmol/L Critically low 22.0-26.0 [facility] Comment on above: Performed By: #### A 1C #### [facility] [address] [address] [address] David Magana LPM 1.5 Normal [facility] Comment on above: Performed By: #### A 1C #### [facility] [address] [place] [address] Dr. David Magana MINUTE VOLUME Normal [facility] Comment on above: Performed By: #### A 1C #### [facility] [address] [place] [address] Dr. David Magana Oxygen (Bld) [Partial pressure] 69.5 mm[Hg] Critically low 80.0-100.0 [facility] Comment on above: Performed By: #### A 1C #### [facility] [address] [place] [address] Dr. David Magana Oxygen saturation in Blood 94.2 % Critically low 95.0-100.0 [facility] Comment on above: Performed By: #### A 1C #### [facility] [address] [place] [address] Dr. David Magana PCO2 29.6 mmHg Critically low 35.0-45.0 [facility] [facility] [place] Comment on above: Performed By: #### A 1C #### [facility] [address] [place] [address] Dr. David Magana PEEP [facility] Comment on above: Performed By: #### A 1C #### [facility] [address] [place] [address] Dr. David Magana pH (Bld) 7.355 [pH] Normal 7.350-7.450 [facility] Comment on above: Performed By: #### A 1C #### [facility] [address] [place] [address] Dr. David Magana [facility] Comment on above: Performed By: #### A 1C #### [facility] [address] [place] [address] Dr. David Magana [facility] Comment on above: Performed By: #### A 1C #### [facility] [address] [place] [address] Dr. David Magana PUNCTURE SITE [facility] Comment on above: Performed By: #### A 1C #### [facility] [address] [place] [address] Dr. David Magana [facility] Comment on above: Performed By: #### A 1C #### [facility] [address] [place] [address] Dr. David Magana [facility] Comment on above: Performed By: #### A 1C #### [facility] [address] [place] [address] Dr. David Magana [facility] Comment on above: Performed By: #### A 1C #### [facility] [address] [place] [address] Dr. David Magana BNPon 07-18-2022 Natriuretic peptide B (Bld) [Mass/Vol] 7047.0 pg/mL Critically high <=1,800.0 [facility] Comment on above: Performed By: #### C VDTBH #### [facility] [address] [place] [address] Dr. David Magana CARDIAC BARRIE 3-6on 2 CK [Catalytic activity/Vol] 396 U/L Critically high 39-308 [facility] Comment on above: Performed By: #### M G, BMP, PHOS #### [facility] [address] [place] [address] Dr. David Magana CK.MB [Mass/Vol] 2.94 ng/mL Normal <=3.60 [facility] Comment on above: Performed By: #### M G, BMP, PHOS #### [facility] [address] [address] [address] David Magana HSTROP 11.1 pg/mL Normal 4.0-76.1 [facility] Comment on above: Result Comment: CUT- OFF POINTS HAVE BEEN ESTABLISHED BASED ON THE FOURTH UNIVERSAL DEFINITIONS OF MYOCARDIAL INFARCTION. THE UPPER REFERENCE LIMIT (URL) OF TROPONIN, DEFINED THE 99TH PERCENTILE OF cTnI DISTRIBUTION IN A REFERENCE POPULATION, HAS BEEN CONFIRMED THE DECISION THRESHOLD FOR ND DIAGNOSIS. Performed By: #### M G, BMP, PHOS #### [facility] [address] [address] [address] David Magana CK [Catalytic activity/Vol] 58 U/L Normal 39-308 [facility] Comment on above: Performed By: #### M G, BMP, PHOS #### [facility] [address] [address] [address] David Magana CK.MB [Mass/Vol] 1.71 ng/mL Normal <=3.60 [facility] Comment on above: Performed By: #### M G, BMP, PHOS #### [facility] [address] [address] [address] David Magana HSTROP 10.6 pg/mL Normal 4.0-76.1 [facility] Comment on above: Result Comment: CUT- OFF POINTS HAVE BEEN ESTABLISHED BASED ON THE FOURTH UNIVERSAL DEFINITIONS OF MYOCARDIAL INFARCTION. THE UPPER REFERENCE LIMIT (URL) OF TROPONIN, DEFINED THE 99TH PERCENTILE OF cTnI DISTRIBUTION IN A REFERENCE POPULATION, HAS BEEN CONFIRMED THE DECISION THRESHOLD FOR ND DIAGNOSIS. Performed By: #### M G, BMP, PHOS #### [facility] [address] [address] [address] David Magana CBC AUTO DIFFon 07-18-2022 BASO # 0.0 103/ul Normal 0.0-0.1 [facility] Comment on above: Performed By: #### M G, BMP, PHOS #### [facility] [address] [address] [address] David Magana Basophils/100 WBC (Bld) 0.2 % Normal 0.2-2.0 [facility] Comment on above: Performed By: #### M ERICK Faith, PHOS #### [facility] [address] [place] [address] Dr. David Magana EO # 0.0 103/ul Normal 0.0-0.7 [facility] Comment on above: Performed By: #### M ERICK Faith, PHOS #### [facility] [address] [place] [address] Dr. David Magana Eosinophils/100 WBC (Bld) 0.2 % Critically low 0.9-7.0 [facility] Comment on above: Performed By: #### ERICK Jacques, PHOS #### [facility] [address] [place] [address] Dr. David Magana Erythrocyte distribution width (RBC) [Ratio] 13.2 % Normal 11.0-15.0 [facility] Comment on above: Performed By: #### ERICK Jacques, PHOS #### [facility] [address] [place] [address] Dr. David Magana Hematocrit (Bld) [Volume fraction] 43.8 % Normal 42.0-54.0 [facility] Comment on above: Performed By: #### ERICK Jacques, PHOS #### [facility] [address] [place] [address] Dr. David Magana Hemoglobin (Bld) [Mass/Vol] 14.5 g/dL Normal 14.0-18.0 [facility] Comment on above: Performed By: #### ERICK Jacques, PHOS #### [facility] [address] [place] [address] Dr. David Magana IG # 0.15 10e3/ul Critically high 0.00-0.03 [facility] Comment on above: Performed By: #### M ERICK Faith, PHOS #### [facility] [address] [place] [address] Dr. David Magana IG % 1.3 % Critically high 0.0-0.5 [facility] Comment on above: Performed By: #### M ERICK Faith, PHOS #### [facility] [address] [place] [address] Dr. David Magana LYMPH # 0.5 103/ul Critically low 1.2-3.8 [facility] Comment on above: Performed By: #### M G, BMP, PHOS #### [facility] [address] [place] [address] Dr. David Magana Lymphocytes/100 WBC (Bld) 3.8 % Critically low 20.5-60.0 [facility] Comment on above: Performed By: #### M G, BMP, PHOS #### [facility] [address] [place] [address] Dr. David Magana MANUAL DIFF REQ NO Normal [facility] Comment on above: Performed By: #### M G, BMP, PHOS #### [facility] [address] [place] [address] Dr. David Magana MCH (RBC) [Entitic mass] 32.7 pg Normal 25.9-34.0 [facility] Comment on above: Performed By: #### M G, BMP, PHOS #### [facility] [address] [place] [address] Dr. David Magana MCHC (RBC) [Mass/Vol] 33.1 g/dL Normal 29.9-35.2 [facility] Comment on above: Performed By: #### M G, BMP, PHOS #### [facility] [address] [place] [address] Dr. David Magana MCV (RBC) [Entitic vol] 98.9 fL Critically high 80.0-94.0 [facility] Comment on above: Performed By: #### M G, BMP, PHOS #### [facility] [address] [place] [address] Dr. David Magana MONO # 0.7 103/ul Normal 0.3-0.8 [facility] Comment on above: Performed By: #### M G, BMP, PHOS #### [facility] [address] [place] [address] Dr. David Magana Monocytes/100 WBC (Bld) 5.7 % Normal 1.7-12.0 [facility] Comment on above: Performed By: #### ERICK Jacques, PHOS #### [facility] [address] [place] [address] Dr. David Magana NEUT # 10.4 103/ul Critically high 1.4-6.5 [facility] Comment on above: Performed By: #### ERICK Jacques, PHOS #### [facility] [address] [place] [address] Dr. David Magana Neutrophils/100 WBC (Bld) 88.8 % Critically high 43.0-75.0 [facility] Comment on above: Performed By: #### ERICK Jacques, PHOS #### [facility] [address] [place] [address] Dr. David Magana Platelet mean volume (Bld) [Entitic vol] 11.0 fL Normal 9.5-13.5 [facility] Comment on above: Performed By: #### ERICK Jacques, PHOS #### [facility] [address] [place] [address] Dr. David Magana PLT 198 103/ul Normal 150-450 [facility] Comment on above: Performed By: #### ERICK Jacques, PHOS #### [facility] [address] [place] [address] Dr. David Magana RBC 4.43 106/ul Critically low 4.70-6.10 [facility] Comment on above: Performed By: #### ERICK Jacques, PHOS #### [facility] [address] [place] [address] Dr. David Magana WBC 11.8 103/ul Critically high 4.0-11.0 [facility] Comment on above: Performed By: #### EIRCK Jacques, PHOS #### [facility] [address] [place] [address] HEAD WO CONon [...] FRANCISCO ZELAYA Date: 2022-07-18 05:12 Normal [facility] Covid-19 PCR ([facility])on SARS-CoV-2 (COVID-19) RNA SULTANA+probe Ql (Unsp spec) Detected Critically abnormal NOT DETECTED [facility] Comment on above: Result Comment: This test is not yet approved or cleared by the [place] FDA. When there are no FDA-approved or cleared tests available, and other criteria are met, FDA can make tests available under an emergency access mechanism called an Emergency Use Authorization (EUA). The EUA for this test is supported by the [place] of Health and Human Service's declaration that [...] used). Performed By: #### C VDTB #### [facility] [address] [place], [place] [address] Dr. David Magana D-DIMERon 07-18-2022 D-DIMER 1.69 mg/L FEU Critically high <=0.[address] [facility] Comment on above: Performed By: #### C BC #### [facility] [address] [place], [place] [address] Dr. David Magana D-DIMER COMMENTS SEE BELOW Normal [facility] Comment on above: Result Comment: Incr eases [...] hospitalization. Performed By: #### C BC #### [facility] [address] [place] [address] Dr. David Magana POINT OF CARE GLUCOSEon Glucose [Mass/Vol] 329 mg/dL Critically high 74-106 [facility] Comment on above: Performed By: #### P OCGLUC #### [facility] [address] [place] [address] Dr. David Magana Glucose [Mass/Vol] 354 mg/dL Critically high 74-106 [facility] Comment on above: Performed By: #### P OCGLUC #### [facility] [address] [place] [address] Dr. David Magana PROF 14(COMP METB)on 022 Albumin [Mass/Vol] 3.6 g/dL Normal 3.4-5.0 [facility] Comment on above: Performed By: #### C VDTBH #### [facility] [address] [place] [address] Dr. David Magana Albumin/Globulin [Mass ratio] 1.1 {ratio} Normal [facility] Comment on above: Performed By: #### C VDTBH #### [facility] [address] [place] [address] Dr. David Magana ALP [Catalytic activity/Vol] 67 U/L Normal 46-116 [facility] Comment on above: Performed By: #### C VDTBH #### [facility] [address] [place] [address] Dr. David Magana ALT [Catalytic activity/Vol] 33 U/L Normal 16-63 [facility] Comment on above: Performed By: #### C VDTBH #### [facility] [address] [address] [address] David Magana Anion gap [Moles/Vol] 23.5 mmol/L Normal [facility] Comment on above: Performed By: #### C VDTBH #### [facility] [address] [address] [address] David Magana AST [Catalytic activity/Vol] 13 U/L Critically low 15-37 [facility] Comment on above: Performed By: #### C VDTBH #### [facility] [address] [place] [address] Dr. David Magana Bilirubin [Mass/Vol] 0.6 mg/dL Normal 0.2-1.0 [facility] Comment on above: Performed By: #### C VDTBH #### [facility] [address] [place] [address] Dr. David Magana Calcium [Mass/Vol] 8.4 mg/dL Critically low 8.5-10.1 [facility] Comment on above: Performed By: #### C VDTBH #### [facility] [address] [place] [address] Dr. David Magana Chloride [Moles/Vol] 93 mmol/L Critically low 98-107 [facility] Comment on above: Performed By: #### C VDTBH #### [facility] [address] [place] [address] Dr. David Magana CO2 [Moles/Vol] 17.9 mmol/L Critically low 21.0-32.0 [facility] Comment on above: Performed By: #### C VDTBH #### [facility] [address] [place] [address] Dr. David Magana Creatinine [Mass/Vol] 2.15 mg/dL Critically high 0.70-1.30 [facility] Comment on above: Performed By: #### C VDTBH #### [facility] [address] [place] [address] Dr. David Magana EGFR-AF GRENADIAN 36 mL/min/1.73m2 Critically low >=60 [facility] Comment on above: Performed By: #### C VDTBH #### [facility] [address] [address] [address] David Magana EGFR-NON AF GRENADIAN 30 mL/min/1.73m2 Critically low >=60 [facility] Comment on above: Performed By: #### C VDTBH #### [facility] [address] [address] [address] David Magana Globulin (S) [Mass/Vol] 3.2 g/dL Normal [facility] Comment on above: Performed By: #### C VDTBH #### [facility] [address] [address] [address] David Magana Glucose [Mass/Vol] 345 mg/dL Critically high 74-106 [facility] Comment on above: Performed By: #### C VDTBH #### [facility] [address] [place] [address] Dr. David Magana Potassium [Moles/Vol] 5.4 mmol/L Critically high 3.5-5.1 [facility] Comment on above: Performed By: #### C VDTBH #### [facility] [address] [address] [address] David Magana Performed By: #### K #### [facility] [address] [place] [address] Dr. David Magana Protein [Mass/Vol] 6.8 g/dL Normal 6.4-8.2 [facility] Comment on above: Performed By: #### C VDTBH #### [facility] [address] [place] [address] Dr. David Magana Sodium [Moles/Vol] 129 mmol/L Critically low 136-145 [facility] Comment on above: Performed By: #### C VDTBH #### [facility] [address] [place] [address] Dr. David Magana Urea nitrogen [Mass/Vol] 65.0 mg/dL Critically high 7.0-18.0 [facility] Comment on above: Performed By: #### C VDTBH #### [facility] [address] [place] [address] Dr. David Magana Urea nitrogen/Creatinine [Mass ratio] 30.2 mg/mg Normal [facility] Comment on above: Performed By: #### C VDTB #### [facility] [address] [place] [address] Dr. David Magana UA RANDOM W/MICROSCOPICon BACTERIA NONE SEEN Normal NONE SEEN [facility] Comment on above: Performed By: #### M ERICK Faith, PHOS #### [facility] [address] [place] [address] Dr. David Magana Bilirubin Ql (U) Negative Normal NEGATIVE [facility] Comment on above: Performed By: #### M Marcell BMP, PHOS #### [facility] [address] [place] [address] Dr. David Magana CAST NONE SEEN Normal NONE SEEN [facility] Comment on above: Performed By: #### M ERICK Faith, PHOS #### [facility] [address] [place] [address] Dr. David Magana Clarity (U) CLEAR Normal CLEAR [facility] Comment on above: Performed By: #### M ERICK Faith, PHOS #### [facility] [address] [place] [address] Dr. David Magana Color (U) LT. YELLOW Normal YELLOW [facility] Comment on above: Performed By: #### M Marcell BMP, PHOS #### [facility] [address] [place] [address] Dr. David Magana Crystals LM Nom (Urine sed) NONE SEEN Normal NONE SEEN [facility] Comment on above: Performed By: #### M G, BMP, PHOS #### [facility] [address] [place] [address] Dr. David Magana Epithelial cells LM Ql (Urine sed) RARE Normal NONE SEEN /RARE [facility] Comment on above: Performed By: #### M Marcell, BMP, PHOS #### [facility] [address] [place] [address] Dr. David Magana Glucose Ql (U) 1000 mg/dl Abnormal NEGATIVE [facility] [place] Comment on above: Performed By: #### M G, BMP, PHOS #### [facility] [address] [address] [address] David Magana Hemoglobin Ql (U) Negative Normal NEGATIVE [facility] Comment on above: Performed By: #### M G, BMP, PHOS #### [facility] [address] [place] [address] Dr. David Magana Ketones Ql (U) 15 mg/dl Abnormal NEGATIVE [facility] [place] Comment on above: Performed By: #### M G, BMP, PHOS #### [facility] [address] [place] [address] Dr. David Magana LEUKOCYTES Negative Normal NEGATIVE [facility] Comment on above: Performed By: #### M G, BMP, PHOS #### [facility] [address] [place] [address] Dr. David Magana MUCOUS NONE SEEN Normal NONE SEEN [facility] Comment on above: Performed By: #### M G, BMP, PHOS #### [facility] [address] [place] [address] Dr. David Magana Nitrite Ql (U) Negative Normal NEGATIVE [facility] [place] Comment on above: Performed By: #### M G, BMP, PHOS #### [facility] [address] [place] [address] Dr. David Magana pH (U) 5.5 [pH] Normal 5-9 [facility] Comment on above: Performed By: #### M G, BMP, PHOS #### [facility] [address] [place] [address] Dr. David Magana RBC NONE SEEN Abnormal 0-2 [facility] Comment on above: Performed By: #### M G, BMP, PHOS #### [facility] [address] [place] [address] Dr. David Magana SPEC GRAVITY <=1.005 Abnormal 1.005-<=1.025 [facility] Comment on above: Performed By: #### M G, BMP, PHOS #### [facility] [address] [place] [address] Dr. David Magana UA PROTEIN Negative Normal NEGATIVE/ TRACE [facility] Comment on above: Performed By: #### M ERICK Faith, PHOS #### [facility] [address] [place] [address] Dr. David Magana Urobilinogen Qn (U) 0.2 {Dionna'U}/dL Normal 0.2 - 1. 0 [facility] Comment on above: Performed By: #### ERICK Jacques, PHOS #### [facility] [address] [address] [address] David Magana WBC NONE SEEN Normal NONE SEEN [facility] Comment on above: Performed By: #### ERICK Jacques, PHOS #### [facility] [address] [place] [address] Dr. David Magana XR CHEST 1 Von [...] Yefri DWYER Date: 2022-07-18 00:09 Normal [facility] CARDIAC BARRIE ADMITon 022 CK [Catalytic activity/Vol] 61 U/L Normal 39-308 [facility] Comment on above: Performed By: #### C BC #### [facility] [address] [place] [address] Dr. David Magana CK.MB [Mass/Vol] 1.84 ng/mL Normal <=3.60 [facility] Comment on above: Performed By: #### C BC #### [facility] [address] [place] [address] Dr. David Magana HSTROP 9.4 pg/mL Normal 4.0-76.1 [facility] Comment on above: Result Comment: CUT- OFF POINTS HAVE BEEN ESTABLISHED BASED ON THE FOURTH UNIVERSAL DEFINITIONS OF MYOCARDIAL INFARCTION. THE UPPER REFERENCE LIMIT (URL) OF TROPONIN, DEFINED THE 99TH PERCENTILE OF cTnI DISTRIBUTION IN A REFERENCE POPULATION, HAS BEEN CONFIRMED THE DECISION THRESHOLD FOR ND DIAGNOSIS. Performed By: #### C BC #### [facility] [address] [place] [address] Dr. David Magana DUSTIN 533 ng/mL Critically high 16-96 [facility] Comment on above: Performed By: #### C BC #### [facility] [address] [place] [address] Dr. David Magana CBC AUTO DIFFon 07-17-2022 BASO # 0.0 103/ul Normal 0.0-0.1 [facility] Comment on above: Performed By: #### M ERICK Faith, PHOS #### [facility] [address] [place] [address] Dr. David Magana Basophils/100 WBC (Bld) 0.2 % Normal 0.2-2.0 [facility] Comment on above: Performed By: #### ERICK Jacques, PHOS #### [facility] [address] [place] [address] Dr. David Magana EO # 0.0 103/ul Normal 0.0-0.7 [facility] Comment on above: Performed By: #### M ERICK Faith, PHOS #### [facility] [address] [place] [address] Dr. David Magana Eosinophils/100 WBC (Bld) 0.1 % Critically low 0.9-7.0 [facility] Comment on above: Performed By: #### ERICK Jacques, PHOS #### [facility] [address] [place] [address] Dr. David Magana Erythrocyte distribution width (RBC) [Ratio] 13.2 % Normal 11.0-15.0 [facility] Comment on above: Performed By: #### ERICK Jacques, PHOS #### [facility] [address] [place] [address] Dr. David Magana Hematocrit (Bld) [Volume fraction] 43.1 % Normal 42.0-54.0 [facility] Comment on above: Performed By: #### M G, BMP, PHOS #### [facility] [address] [place] [address] Dr. David Magana Hemoglobin (Bld) [Mass/Vol] 14.5 g/dL Normal 14.0-18.0 [facility] Comment on above: Performed By: #### M G, BMP, PHOS #### [facility] [address] [place] [address] Dr. David Magana IG # 0.14 10e3/ul Critically high 0.00-0.03 [facility] Comment on above: Performed By: #### M G, BMP, PHOS #### [facility] [address] [place] [address] Dr. David Magana IG % 1.2 % Critically high 0.0-0.5 [facility] Comment on above: Performed By: #### M G, BMP, PHOS #### [facility] [address] [place] [address] Dr. David Magana LYMPH # 0.4 103/ul Critically low 1.2-3.8 [facility] Comment on above: Performed By: #### M G, BMP, PHOS #### [facility] [address] [place] [address] Dr. David Magana Lymphocytes/100 WBC (Bld) 3.4 % Critically low 20.5-60.0 [facility] Comment on above: Performed By: #### M G, BMP, PHOS #### [facility] [address] [place] [address] Dr. David Magana MANUAL DIFF REQ NO Normal [facility] Comment on above: Performed By: #### M G, BMP, PHOS #### [facility] [address] [place] [address] Dr. David Magana MCH (RBC) [Entitic mass] 33.3 pg Normal 25.9-34.0 [facility] Comment on above: Performed By: #### M G, BMP, PHOS #### [facility] [address] [place] [address] Dr. David Magana MCHC (RBC) [Mass/Vol] 33.6 g/dL Normal 29.9-35.2 [facility] Comment on above: Performed By: #### M ERICK Faith, PHOS #### [facility] [address] [place] [address] Dr. David Magana MCV (RBC) [Entitic vol] 98.9 fL Critically high 80.0-94.0 [facility] Comment on above: Performed By: #### ERICK Jacques, PHOS #### [facility] [address] [place] [address] Dr. David Magana MONO # 1.1 103/ul Critically high 0.3-0.8 [facility] Comment on above: Performed By: #### M ERICK Faith, PHOS #### [facility] [address] [place] [address] Dr. David Magana Monocytes/100 WBC (Bld) 8.9 % Normal 1.7-12.0 [facility] Comment on above: Performed By: #### ERICK Jacques, PHOS #### [facility] [address] [place] [address] Dr. David Magana NEUT # 10.3 103/ul Critically high 1.4-6.5 The [facility] Comment on above: Performed By: #### M ERICK Faith, PHOS #### [facility] [address] [place] [address] Dr. David Magana Neutrophils/100 WBC (Bld) 86.2 % Critically high 43.0-75.0 [facility] Comment on above: Performed By: #### ERICK Jacques, PHOS #### [facility] [address] [place] [address] Dr. David Magana Platelet mean volume (Bld) [Entitic vol] 11.1 fL Normal 9.5-13.5 [facility] Comment on above: Performed By: #### M ERICK Faith, PHOS #### [facility] [address] [place] [address] Dr. David Magana PLT 229 103/ul Normal 150-450 [facility] Comment on above: Performed By: #### M ERICK Faith, PHOS #### [facility] [address] [address] [address] David Magana RBC 4.36 106/ul Critically low 4.70-6.10 [facility] Comment on above: Performed By: #### M ERICK Faith, PHOS #### [facility] [address] [place] [address] Dr. David Magana WBC 11.9 103/ul Critically high 4.0-11.0 [facility] Comment on above: Performed By: #### M ERICK Faith, PHOS #### [facility] [address] [place] [address] Dr. David Magana PROF CHEM 8 (BAS METB)on Anion gap [Moles/Vol] 26.5 mmol/L Normal [facility] Comment on above: Performed By: #### C BC #### [facility] [address] [place] [address] Dr. David Magana Calcium [Mass/Vol] 8.2 mg/dL Critically low 8.5-10.1 [facility] Comment on above: Performed By: #### C BC #### [facility] [address] [place] [address] Dr. David Magana Chloride [Moles/Vol] 89 mmol/L Critically low 98-107 [facility] Comment on above: Performed By: #### C BC #### [facility] [address] [place] [address] Dr. David Magana CO2 [Moles/Vol] 14.5 mmol/L Critically low 21.0-32.0 [facility] Comment on above: Performed By: #### C BC #### [facility] [address] [place] [address] Dr. David Magana Creatinine [Mass/Vol] 2.78 mg/dL Critically high 0.70-1.30 [facility] Comment on above: Performed By: #### C BC #### [facility] [address] [place] [address] Dr. David Magana EGFR-AF GRENADIAN 27 mL/min/1.73m2 Critically low >=60 [facility] Comment on above: Performed By: #### C BC #### [facility] [address] [place] [address] Dr. David Magana EGFR-NON AF GRENADIAN 22 mL/min/1.73m2 Critically low >=60 [facility] Comment on above: Performed By: #### C BC #### [facility] [address] [address] [address] David Magana Glucose [Mass/Vol] 442 mg/dL Critically high 74-106 [facility] Comment on above: Performed By: #### C BC #### [facility] [address] [place] [address] Dr. David Magana Potassium [Moles/Vol] 6.0 mmol/L Critically high 3.5-5.1 [facility] Comment on above: Performed By: #### C BC #### [facility] [address] [place] [address] Dr. David Magana Sodium [Moles/Vol] 124 mmol/L Critically low 136-145 [facility] Comment on above: Performed By: #### C BC #### [facility] [address] [place] [address] Dr. David Magana Urea nitrogen [Mass/Vol] 73.0 mg/dL Critically high 7.0-18.0 [facility] Comment on above: Performed By: #### C BC #### [facility] [address] [place] [address] Dr. David Magana Urea nitrogen/Creatinine [Mass ratio] 26.3 mg/mg Normal [facility] Comment on above: Performed By: #### C BC #### [facility] [address] [place] [address] [place], [place] [id number] Dr. David Magana Covid-19 PCR ([facility])on 06-16 SARS-CoV-2 (COVID-19) RNA SULTANA+probe Ql (Unsp spec) Detected Critically abnormal NOT DETECTED [facility] Comment on above: Result Comment: This test is not yet approved or cleared by the [place] FDA. When there are no FDA-approved or cleared tests available, and other criteria are met, FDA can make tests available under an emergency access mechanism called an Emergency Use Authorization (EUA). The EUA for this test is supported by the [place] Assistant of Health and Human Service's (HHS's) declaration [...] be used). Performed By: #### M ERICK Faith, JOSUE #### [facility] [address] [place] [address] Dr. David Magana ECHOCARDIO M/2D COMPLETEon 0 07-01-2022 ECHOCARDIO M/2D COMPLETE Patient: NADIR BETH Exam Date: 07/01/2022 : 1940 Gender:M Ordering : DR CLARIBEL CISNEROS M.D. Admission #: [id number] Family : DR VAN YOUSSEF . Order #: [id number] CLICK HERE TO VIEW EXAM ECHOCARDIOGRAM REPORT [...] M.D. on 07/01/2022 at 16:27 Normal [facility] Covid-19 PCR ([facility])on SARS-CoV-2 (COVID-19) RNA SULTANA+probe Ql (Unsp spec) Not detected Normal NOT DETECTED [facility] Comment on above: Result Comment: When [...] for this test is supported by the [place] of Health and Human Service's declaration that [...] used). Performed By: #### C VDTB #### [facility] [address] [place] [address] Dr. David Magana CREATININE URINEon URINE CREAT 14.70 mg/dL Critically low 20.00-300.[address] [facility] Comment on above: Performed By: #### M G, BMP, PHOS #### [facility] [address] [place] [address] Dr. David Magana GLYCOHEMOGLOBIN A1Con 2021 ADA RECOMMENDATION SEE BELOW Normal [facility] Comment on above: Result Comment: ADA RECOMMENDED LIMIT 4.0 - 6.0 ADA THERAPEUTIC TARGET < 7.0 ACTION SUGGESTED > 7.0 Performed By: #### A 1C #### [facility] [address] [place] [address] Dr. David Magana Glucose [Mass/Vol] 209 mg/dL Normal [facility] Comment on above: Performed By: #### A 1C #### [facility] [address] [place] [address] Dr. David Magana HbA1c (Bld) [Mass fraction] 8.9 % Critically high 4.5-6.2 [facility] Comment on above: Performed By: #### A 1C #### [facility] [address] [place] [address] Dr. David Magana MAGNESIUMon 06-08-2022 Magnesium [Mass/Vol] 2.3 mg/dL Normal 1.8-2.4 [facility] Comment on above: Performed By: #### M ERICK Faith, PHOS #### [facility] [address] [place] [address] Dr. David Magana PHOSPHORUSon 06-08-2022 Phosphate [Mass/Vol] 3.5 mg/dL Normal 2.6-4.7 [facility] Comment on above: Performed By: #### M ERICK Faith, PHOS #### [facility] [address] [place] [address] Dr. David Magana PROF CHEM 8 (BAS METB)on Anion gap [Moles/Vol] 10.6 mmol/L Normal [facility] Comment on above: Performed By: #### M Marcell BMP, PHOS #### [facility] [address] [place] [address] Dr. David Magana Calcium [Mass/Vol] 9.2 mg/dL Normal 8.5-10.[address] [facility] Comment on above: Performed By: #### M Marcell BMP, PHOS #### [facility] [address] [place] [address] Dr. David Magana Chloride [Moles/Vol] 102 mmol/L Normal 98-107 [facility] Comment on above: Performed By: #### M G, BMP, PHOS #### [facility] [address] [place] [address] Dr. David Magana CO2 [Moles/Vol] 30.1 mmol/L Normal 21.0-32.0 [facility] Comment on above: Performed By: #### M ERICK Faith, PHOS #### [facility] [address] [address] [address] David Magana Creatinine [Mass/Vol] 1.70 mg/dL Critically high 0.70-1.30 [facility] Comment on above: Performed By: #### ERICK Jacques, PHOS #### [facility] [address] [place] [address] Dr. David Magana EGFR-AF GRENADIAN 47 mL/min/1.73m2 Critically low >=60 [facility] Comment on above: Performed By: #### ERICK Jacques, PHOS #### [facility] [address] [place] [address] Dr. David Magana EGFR-NON AF GRENADIAN 39 mL/min/1.73m2 Critically low >=60 [facility] Comment on above: Performed By: #### ERICK Jacques, PHOS #### [facility] [address] [place] [address] Dr. David Magana Glucose [Mass/Vol] 197 mg/dL Critically high 74-106 [facility] Comment on above: Performed By: #### ERICK Jacques, PHOS #### [facility] [address] [place] [address] Dr. David Magana Potassium [Moles/Vol] 4.7 mmol/L Normal 3.5-5.1 [facility] Comment on above: Performed By: #### ERICK Jacques, PHOS #### [facility] [address] [place] [address] Dr. David Magana Sodium [Moles/Vol] 138 mmol/L Normal 136-145 [facility] Comment on above: Performed By: #### ERICK Jacques, PHOS #### [facility] [address] [place] [address] Dr. Daivd Magana Urea nitrogen [Mass/Vol] 25.0 mg/dL Critically high 7.0-18.0 [facility] Comment on above: Performed By: #### ERICK Jacques, PHOS #### [facility] [address] [place] [address] Dr. David Magana Urea nitrogen/Creatinine [Mass ratio] 14.7 mg/mg Normal [facility] Comment on above: Performed By: #### M GERICK, PHOS #### [facility] [address] [place] [address] Dr. David Magana PROTEIN RAND URINEon 022 UR PROT <5.0 Normal <=11.9 [facility] Comment on above: Performed By: #### C REAU, PROTU #### [facility] [address] [place] [address] Dr. David Magana BILIRUBIN CONJUGATED (DIRECT )on 04-28-2022 BILI, CONJUGATED 0.1 mg/dL Normal 0.0-0.2 [facility] Comment on above: Performed By: #### P OCGLUC #### [facility] [address] [place] [address] Dr. David Magana CBC AUTO DIFFon 04-28-2022 BASO # 0.1 103/ul Normal 0.0-0.1 [facility] Comment on above: Performed By: #### C VDTBH #### [facility] [address] [place] [address] Dr. David Magana Basophils/100 WBC (Bld) 0.7 % Normal 0.2-2.0 [facility] Comment on above: Performed By: #### C VDTBH #### [facility] [address] [place] [address] Dr. David Magana EO # 0.5 103/ul Normal 0.0-0.7 [facility] Comment on above: Performed By: #### C VDTBH #### [facility] [address] [place] [address] Dr. David Magana Eosinophils/100 WBC (Bld) 6.7 % Normal 0.9-7.0 [facility] Comment on above: Performed By: #### C VDTBH #### [facility] [address] [place] [address] Dr. David Magana Erythrocyte distribution width (RBC) [Ratio] 13.6 % Normal 11.0-15.0 [facility] Comment on above: Performed By: #### C VDTBH #### [facility] [address] [place] [address] Dr. David Magana Hematocrit (Bld) [Volume fraction] 45.9 % Normal 42.0-54.0 [facility] Comment on above: Performed By: #### C VDTBH #### [facility] [address] [place] [address] Dr. David Magana Hemoglobin (Bld) [Mass/Vol] 14.9 g/dL Normal 14.0-18.0 [facility] Comment on above: Performed By: #### C VDTBH #### [facility] [address] [place] [address] Dr. David Magana IG # 0.03 10e3/ul Normal 0.00-0.03 [facility] Comment on above: Performed By: #### C VDTBH #### [facility] [address] [place] [address] Dr. David Magana IG % 0.4 % Normal 0.0-0.5 [facility] Comment on above: Performed By: #### C VDTBH #### [facility] [address] [place] [address] Dr. David Magana LYMPH # 1.0 103/ul Critically low 1.2-3.8 [facility] Comment on above: Performed By: #### C VDTBH #### [facility] [address] [place] [address] Dr. David Magana Lymphocytes/100 WBC (Bld) 13.4 % Critically low 20.5-60.0 [facility] Comment on above: Performed By: #### C VDTBH #### [facility] [address] [place] [address] Dr. David Magana MANUAL DIFF REQ NO Normal [facility] Comment on above: Performed By: #### C VDTBH #### [facility] [address] [place] [address] Dr. David Magana MCH (RBC) [Entitic mass] 33.8 pg Normal 25.9-34.0 [facility] Comment on above: Performed By: #### C VDTBH #### [facility] [address] [place] [address] Dr. David Magana MCHC (RBC) [Mass/Vol] 32.5 g/dL Normal 29.9-35.2 [facility] Comment on above: Performed By: #### C VDTBH #### [facility] [address] [place] [address] Dr. David Magana MCV (RBC) [Entitic vol] 104.1 fL Critically high 80.0-94.0 [facility] Comment on above: Performed By: #### C VDTBH #### [facility] [address] [place] [address] Dr. David Magana MONO # 0.8 103/ul Normal 0.3-0.8 [facility] Comment on above: Performed By: #### C VDTBH #### [facility] [address] [place] [address] Dr. David Magana Monocytes/100 WBC (Bld) 10.2 % Normal 1.7-12.0 [facility] Comment on above: Performed By: #### C VDTBH #### [facility] [address] [place] [address] Dr. David Magana NEUT # 5.1 103/ul Normal 1.4-6.5 [facility] Comment on above: Performed By: #### C VDTBH #### [facility] [address] [place] [address] Dr. David Magana Neutrophils/100 WBC (Bld) 68.6 % Normal 43.0-75.0 [facility] Comment on above: Performed By: #### C VDTBH #### [facility] [address] [place] [address] Dr. David Magana Platelet mean volume (Bld) [Entitic vol] 11.3 fL Normal 9.5-13.5 [facility] Comment on above: Performed By: #### C VDTBH #### [facility] [address] [address] [address] David Magana PLT 185 103/ul Normal 150-450 [facility] Comment on above: Performed By: #### C VDTBH #### [facility] [address] [address] [address] David Magana RBC 4.41 106/ul Critically low 4.70-6.10 [facility] Comment on above: Performed By: #### C VDTBH #### [facility] [address] [address] [address] David Magana WBC 7.5 103/ul Normal 4.0-11.0 [facility] Comment on above: Performed By: #### C VDTBH #### [facility] [address] [place] [address] Dr. David Magana FREE T3on 04-28-2022 FREE T3 2.17 pg/mlL Critically low 2.18-3.98 [facility] Comment on above: Performed By: #### P OCGLUC #### [facility] [address] [place] [address] Dr. David Magana LIPID PROFILEon 04-28-2022 CHOL-HDL RATIO NORM SEE BELOW Normal [facility] Comment on above: Result Comment: 3.3 - 4.4 LOW RISK 4.4 - 7.1 AVERAGE RISK 7.1 - 11.0 MODERATE RISK >11.0 HIGH RISK Performed By: #### P OCGLUC #### [facility] [address] [place] [address] Dr. David Magana Cholesterol [Mass/Vol] 234 mg/dL Critically high <=200 [facility] Comment on above: Performed By: #### P OCGLUC #### [facility] [address] [place] [address] Dr. David Magana Cholesterol in HDL [Mass/Vol] 58 mg/dL Normal 40-60 [facility] Comment on above: Performed By: #### P OCGLUC #### [facility] [address] [place] [address] Dr. David Magana Cholesterol in LDL [Mass/Vol] 129.0 mg/dL Normal [facility] Comment on above: Performed By: #### P OCGLUC #### [facility] [address] [address] [address] David Magana Cholesterol.total/Cho lesterol in HDL [Mass ratio] 4.0 {ratio} Normal [facility] Comment on above: Performed By: #### P OCGLUC #### [facility] [address] [address] [address] David Magana HDL NORMAL > or = 60 mg/dl - LOW CARDIOVASCULAR RISK <40 mg/dl - HIGH CARDIOVASCULAR RISK Normal [facility] Comment on above: Performed By: #### P OCGLUC #### [facility] [address] [address] [address] David Magana LDL CALC NORMAL SEE BELOW Normal [facility] Comment on above: Result Comment: <100 mg/dl OPTIMAL 100 - 129 mg/dl NEAR OR ABOVE OPTIMAL 130 - 159 mg/dl BORDERLINE HIGH 160 - 189 mg/dl HIGH >190 mg/dl VERY HIGH Performed By: #### P OCGLUC #### [facility] [address] [address] [address] David Magana Triglyceride [Mass/Vol] 235 mg/dL Critically high <=150 [facility] Comment on above: Performed By: #### P OCGLUC #### [facility] [address] [place] [address] Dr. David Magana VLDL CALC 47.0 mg/dL Normal [facility] Comment on above: Performed By: #### P OCGLUC #### [facility] [address] [address] [address] David Magana PROF 14(COMP METB)on 022 Albumin [Mass/Vol] 3.2 g/dL Critically low 3.4-5.0 [facility] Comment on above: Performed By: #### P OCGLUC #### [facility] [address] [place] [address] Dr. David Magana Albumin/Globulin [Mass ratio] 0.9 {ratio} Normal [facility] Comment on above: Performed By: #### P OCGLUC #### [facility] [address] [place], [place] [id number] Dr. David Magana ALP [Catalytic activity/Vol] 77 U/L Normal 46-116 [facility] Comment on above: Performed By: #### P OCGLUC #### [facility] [address] [address] [address] David Magana ALT [Catalytic activity/Vol] 24 U/L Normal 16-63 [facility] Comment on above: Performed By: #### P OCGLUC #### [facility] [address] [address] [address] David Magana Anion gap [Moles/Vol] 13.1 mmol/L Normal [facility] Comment on above: Performed By: #### P OCGLUC #### [facility] [address] [address] [address] David Magana AST [Catalytic activity/Vol] 13 U/L Critically low 15-37 [facility] Comment on above: Performed By: #### P OCGLUC #### [facility] [address] [address] [address] David Magana Bilirubin [Mass/Vol] 0.3 mg/dL Normal 0.2-1.0 [facility] Comment on above: Performed By: #### P OCGLUC #### [facility] [address] [address] [address] David Magana Calcium [Mass/Vol] 8.8 mg/dL Normal 8.5-10.1 [facility] Comment on above: Performed By: #### P OCGLUC #### [facility] [address] [address] [address] David Magana Chloride [Moles/Vol] 106 mmol/L Normal 98-107 [facility] Comment on above: Performed By: #### P OCGLUC #### [facility] [address] [address] [address] David Magana CO2 [Moles/Vol] 27.5 mmol/L Normal 21.0-32.0 [facility] Comment on above: Performed By: #### P OCGLUC #### [facility] [address] [address] [address] David Magana Creatinine [Mass/Vol] 1.62 mg/dL Critically high 0.70-1.30 [facility] Comment on above: Performed By: #### P OCGLUC #### [facility] [address] [address] [address] David Magana EGFR-AF GRENADIAN 50 mL/min/1.73m2 Critically low >=60 [facility] Comment on above: Performed By: #### P OCGLUC #### [facility] [address] [address] [address] David Magana EGFR-NON AF GRENADIAN 41 mL/min/1.73m2 Critically low >=60 [facility] Comment on above: Performed By: #### P OCGLUC #### [facility] [address] [address] [address] David Magana Globulin (S) [Mass/Vol] 3.4 g/dL Normal [facility] Comment on above: Performed By: #### P OCGLUC #### [facility] [address] [address] [address] David Magana Glucose [Mass/Vol] 206 mg/dL Critically high 74-106 [facility] Comment on above: Performed By: #### P OCGLUC #### [facility] [address] [address] [address] David Magana Potassium [Moles/Vol] 4.6 mmol/L Normal 3.5-5.1 [facility] Comment on above: Performed By: #### P OCGLUC #### [facility] [address] [address] [address] David Magana Protein [Mass/Vol] 6.6 g/dL Normal 6.4-8.[address] [facility] Comment on above: Performed By: #### P OCGLUC #### [facility] [address] [address] [address] David Magana Sodium [Moles/Vol] 142 mmol/L Normal 136-145 [facility] Comment on above: Performed By: #### P OCGLUC #### [facility] [address] [address] [address] David Magana Urea nitrogen [Mass/Vol] 26.0 mg/dL Critically high 7.0-18.0 [facility] Comment on above: Performed By: #### P OCGLUC #### [facility] [address] [address] [address] David Magana Urea nitrogen/Creatinine [Mass ratio] 16.0 mg/mg Normal [facility] Comment on above: Performed By: #### P OCGLUC #### [facility] [address] [address] [address] David Magana T4on 04-28-2022 T4 [Mass/Vol] 7.70 ug/dL Normal 4.50-12.10 [facility] Comment on above: Performed By: #### P OCGLUC #### [facility] [address] [place] [address] Dr. David Magana TSHon 04-28-2022 TSH 2.187 uIU/mL Normal 0.358-3.740 [facility] Comment on above: Performed By: #### P OCGLUC #### [facility] [address] [place] [address] Dr. David Magana TSH RANGE SEE BELOW Normal [facility] Comment on above: Result Comment: <0.3 4 UIU/ml HYPERTHYROID 0.34-5.60 UIU/ml EUTHYROID >5.60 UIU/ml HYPOTHYROID Performed By: #### P OCGLUC #### [facility] [address] [place] [address] Dr. David Magana Vital Signs Date Time Vital Sign Value Performing Clinician Facility 08-08-2024 10:25-0400 Blood Pressure Location MARQUIS CAMPBE[facility] 08-08-2024 10:25-0400 Diastolic blood pressure 82 mm[Hg] MARQUIS CAMPBELL [facility] 08-08-2024 10:25-0400 Systolic blood pressure 140 mm[Hg] MARQUIS CAMPBELL [facility] 10-14-2023 14:33-0500 Diastolic blood pressure 70 mm[Hg] Nereyda Patricia [facility] 10-14-2023 14:33-0500 Mean blood pressure 93 mm[Hg] Nereyda Patricia [facility] 10-14-2023 14:33-0500 Systolic blood pressure 138 mm[Hg] Nereyda Patricia [facility] 10-14-2023 14:18-0500 Blood Pressure Location Nereyda Patricia [facility] 10-14-2023 14:18-0500 Body temperature 97.88 [degF] Nereyda Patricia [facility] 10-14-2023 14:18-0500 Diastolic blood pressure 73 mm[Hg] Nereyda Patricia [facility] 10-14-2023 14:18-0500 Heart rate 91 /min Nereyda Patricia [facility] 10-14-2023 14:18-0500 Systolic blood pressure 143 mm[Hg] Nereyda Patricia [facility] 10-01-2023 12:13-0500 Diastolic blood pressure 66 mm[Hg] Nereyda Patricia [facility] 10-01-2023 12:13-0500 Mean blood pressure 104 mm[Hg] Nereyda Patricia [facility] 10-01-2023 12:13-0500 Systolic blood pressure 179 mm[Hg] Nereyda Patricia [facility] 10-01-2023 12:10-0500 Blood Pressure Location Nereyda Patricia [facility] 10-01-2023 12:10-0500 Body temperature 98.42 [degF] Nereyda Patricia [facility] 10-01-2023 12:10-0500 Diastolic blood pressure 77 mm[Hg] Nereyda Patricia [facility] 10-01-2023 12:10-0500 Heart rate 81 /min Neredya Patricia [facility] 10-01-2023 12:10-0500 Respiratory rate 14 /min Nereyda Patricia [facility] 10-01-2023 12:10-0500 Systolic blood pressure 168 mm[Hg] Nereyda Patricia [facility] 06-10-2023 10:43-0400 Diastolic blood pressure 64 mm[Hg] Nereyda Patricia [facility] 06-10-2023 10:43-0400 Heart rate 76 /min Nereyda Patricia [facility] 06-10-2023 10:43-0400 Respiratory rate 16 /min Nereyda Patricia [facility] 06-10-2023 10:43-0400 SaO2% (BldA) [Mass fraction] 95 % Nereyda Patricia [facility] 06-10-2023 10:43-0400 Systolic blood pressure 121 mm[Hg] Nereyda Patricia [facility] 04-13-2023 14:19-0400 Diastolic blood pressure 70 mm[Hg] Nereyda Patricia [facility] 04-13-2023 14:19-0400 Mean blood pressure 95 mm[Hg] Nereydabruce JoyaPatricia [facility] 04-13-2023 14:19-0400 Systolic blood pressure 146 mm[Hg] Nereyda Patricia [facility] 04-13-2023 14:15-0400 Blood Pressure Location Nereyda Patricia [facility] 04-13-2023 14:15-0400 Body temperature 97.7 [degF] Nereydabruce JoyaPatricia [facility] 04-13-2023 14:15-0400 Diastolic blood pressure 87 mm[Hg] Nereydabruce JoyaPatricia [facility] 04-13-2023 14:15-0400 Heart rate 70 /min Nereydabruce JoyaPatricia [facility] 04-13-2023 14:15-0400 Systolic blood pressure 150 mm[Hg] Nereyda Patricia [facility] 06-09-2022 10:02-0400 Body temperature 96.98 [degF] Nereydabruce JoyaPatricia [facility] 06-09-2022 10:02-0400 Diastolic blood pressure 75 mm[Hg] Nereyda Patricia [facility] 06-09-2022 10:02-0400 Heart rate 72 /min Nereyda Patricia [facility] 06-09-2022 10:02-0400 SaO2% (BldA) [Mass fraction] 97 % Nereyda Gomez [facility] 06-09-2022 10:02-0400 Systolic blood pressure 139 mm[Hg] Nereyda Gomez [facility] 05-11-2022 11:30-0400 Diastolic blood pressure 102 mm[Hg] Bender SALAM [facility] 05-11-2022 11:30-0400 Heart rate 86 /min Bender SALAM [facility] 05-11-2022 11:30-0400 Respiratory rate 15 /min Bender SALAM [facility] 05-11-2022 11:30-0400 SaO2% (BldA) [Mass fraction] 95 % Bender SALAM [facility] 05-11-2022 11:30-0400 Systolic blood pressure 172 mm[Hg] Bender SALAM [facility] 05-11-2022 11:15-0400 Diastolic blood pressure 88 mm[Hg] Bender SALAM [facility] 05-11-2022 11:15-0400 Heart rate 86 /min Bender SALAM [facility] 05-11-2022 11:15-0400 Respiratory rate 18 /min Bender SALAM [facility] 05-11-2022 11:15-0400 SaO2% (BldA) [Mass fraction] 97 % Bender SALAM [facility] 05-11-2022 11:15-0400 Systolic blood pressure 170 mm[Hg] Bender SALAM [facility] 05-11-2022 11:10-0400 Diastolic blood pressure 108 mm[Hg] Bender SALAM [facility] 05-11-2022 11:10-0400 Heart rate 85 /min Bender SALAM [facility] 05-11-2022 11:10-0400 Respiratory rate 14 /min Bender SALAM [facility] 05-11-2022 11:10-0400 SaO2% (BldA) [Mass fraction] 97 % Bender SALAM [facility] 05-11-2022 11:10-0400 Systolic blood pressure 157 mm[Hg] Bender SALAM [facility] 05-11-2022 11:02-0400 Body temperature 97.34 [degF] Bender SALAM [facility] 05-11-2022 10:27-0400 Blood Pressure Location Bender SALAM [facility] 05-11-2022 10:23-0400 Blood Pressure Location Bender SALAM [facility] 05-11-2022 10:23-0400 Body temperature 98.24 [degF] Bender SALAM [facility] 03-31-2022 09:53-0400 Blood Pressure Location Nereydabruce JoyaPatricia [facility] 03-31-2022 09:53-0400 Body temperature 97.7 [degF] Nereyda Patricia [facility] 03-31-2022 09:53-0400 Diastolic blood pressure 72 mm[Hg] Nereyda Patricia [facility] 03-31-2022 09:53-0400 Heart rate 73 /min Nereyda Gomez [facility] 03-31-2022 09:53-0400 SaO2% (BldA) [Mass fraction] 96 % Nereyda Gomez [facility] 03-31-2022 09:53-0400 Systolic blood pressure 129 mm[Hg] Nereyda Gomez [facility] Encounters Encounter Date Encounter Type Care Provider Facility Start: 08-24-2024 End: 08-24-2024 Bambozena Joy MD Work Phone: [facility] Start: 08-24-2024 End: 08-24-2024 Bamboo flowspatrick Joy MD Work Phone: [facility] Start: 08-24-2024 End: 08-24-2024 Office outpatient visit 15 minutes Rodney Joy MD Work Phone: [facility] Comment on above: Melanocytic nevus of trunk (Primary Dx); Actinic keratosis; Lentigines; Seborrheic keratosis Start: 08-24-2024 End: 08-24-2024 ambulatory RODNEY JOY Not Available Start: 08-22-2024 ambulatory Nereyda Gomez Facility :[facility] Start: 08-17-2024 ambulatory MARQUIS ARLETH-AMANKRA Facility: [facility] Start: 08-14-2024 End: 08-17-2024 Telephone encounter Barrie Montoya MD Work Phone: [facility] Start: 08-08-2024 End: 08-08-2024 ambulatory MARQUIS NKANSAH-AMANKRA Facility:[facility] Start: 08-08-2024 End: 08-08-2024 Patient encounter procedure MARQUIS CAMPBELL [facility] Start: 08-03-2024 End: 08-03-2024 ambulatory BLAISE A BROWN Not Available Start: 08-01-2024 End: 08-01-2024 ambulatory BARRIE D BEJ Not Available Start: 07-20-2024 End: 07-20-2024 ambulatory BLAISE A BROWN Not Available Start: 07-06-2024 End: 07-06-2024 ambulatory BLAISE A BROWN Not Available Start: 07-05-2024 End: 07-05-2024 ambulatory [facility] Start: 06-07-2024 End: 06-07-2024 ambulatory RUTHIE [facility] Start: 06-05-2024 End: 06-05-2024 ambulatory [facility] Start: 06-01-2024 End: 06-01-2024 ambulatory BLAISE A BROWN Not Available Start: 04-20-2024 End: 04-20-2024 ambulatory BLAISE A BROWN Not Available Start: 03-03-2024 End: 03-03-2024 ambulatory [facility] Start: 02-10-2024 End: 02-10-2024 ambulatory BLAISE A BROWN Not Available Start: 02-02-2024 [facility]ulatory [facility] Start: 01-11-2024 End: 01-11-2024 ambulatory BARRIE D BEJ Not Available Start: 12-09-2023 ambulatory Nereyda Gomez Facili ty:[facility] Start: 12-02-2023 End: 12-02-2023 ambulatory BLAISE A BROWN Not Available Start: 11-17-2023 End: 11-17-2023 ambulatory DANA [facility] Start: 10-14-2023 End: 10-14-2023 ambulatory Nereyda Gomez [facility] Start: 10-14-2023 End: 10-14-2023 Patient encounter procedure Nereyda Gomez [facility] Start: 10-01-2023 End: 10-01-2023 ambulatory Nereyda Gomez Facility:[facility] Start: 10-01-2023 End: 10-01-2023 Patient encounter procedure Nereyda Gomez [facility] Start: 10-01-2023 End: 10-01-2023 ambulatory Nereyda Gomez Facility:[facility] Start: 10-01-2023 End: 10-01-2023 Patient encounter procedure Nereyda Gomez [facility] Start: 09-17-2023 End: 09-17-2023 ambulatory [facility] Start: 09-13-2023 End: 09-13-2023 ambulatory [facility] Start: 09-13-2023 End: 09-13-2023 Patient encounter procedure Nereyda Gomez [facility] Start: 08-31-2023 End: 08-31-2023 ambulatory [facility] Start: 07-21-2023 End: 07-21-2023 ambulatory [facility] Start: 06-10-2023 End: 06-10-2023 Patient encounter procedure Nereyda Gomez [facility] Start: 04-15-2023 End: 04-15-2023 Lab Drop off Nereyda Gomez [facility] Start: 04-13-2023 End: 04-13-2023 Patient encounter procedure Nereyda Gomez [facility] Start: 03-24-2023 End: 03-25-[address] RUTHIE LINDA Facility:[facility] Start: 02-27-2023 End: 02-28-[address] VAN YOUSSEF . Facility:[facility] Start: 12-28-2022 End: 12-29-[address] RUTHIE LINDA Facility:[facility] Start: 11-16-2022 End: 11-17-[address] RUTHIE LINDA Facility:[facility] Start: 11-02-2022 End: 11-03-[address] VAN YOUSSEF . Facility:[facility] Start: 07-18-2022 End: 07-22-2022 Evaluation and management of inpatient DR VAN YOUSSEF . Facility:[facility] Start: 07-13-2022 End: 07-13-[address] VAN YOUSSEF . Facility:[facility] Start: 07-01-2022 End: 07-02-[address] CLARIBEL CISNEROS Facility:[facility] Start: 06-16-2022 End: 06-16-[address] VAN YOUSSEF . Facility:[facility] Start: 06-09-2022 End: 06-09-2022 Patient encounter procedure Nereyda Gomez [facility] Start: 06-08-2022 End: 06-09-2022 ambulatory GAMALIEL DALEY Facility:[facility] Start: 05-11-2022 End: 05-11-2022 Patient encounter procedure Napoleon MENDEZ [facility] Start: 04-28-2022 End: 04-29-[address] VAN YOUSSEF . Facility:[facility] Start: 03-31-2022 End: 03-31-2022 Patient encounter procedure Nereyda Gomez [facility] Start: 2019 End: 02-07-2019 Patient encounter procedure DEFAULT PHYSICIAN Facility:[facility] Procedures Date Procedure Procedure Detail Performing Clinician Start: 08-24-2024 CRYOTHERAPY SKIN LESION Rodney Joy MD Work Phone: Start: 05-11-2022 Colonoscopy Napoleon Fernandez Comment on above: 2 polyps, diveticulo sis, IH Start: 01-11-2017 Cardioversion Nereyda Modi nmmalvin Back structure, excl uding neck (body structure) Nereyda Aptricia Cholecystectomy Nereyda mcdonough Colonoscopy Nereyda Gomez History of hernia repair Ave barrera Patricia Tonsillectomy Nereyda Patricia Plan of Treatment Date Care Activity Detail Author Start: 08-23-2025 End: 08-23-2025 Patient encounter procedure 08/23/2025 10:50 AM EDT Office Visit [facility] [address] [place] [address] Rodney Joy MD [address] [place] [address] [facility] Start: 10-10-2024 End: 10-10-2024 Patient encounter procedure 10/10/2024 10:45 AM EST Office Visit [facility] [address] [place] [address] Barrie Montoya MD [address] [facility] [address] [place] [address] [facility] Start: 09-14-2024 End: 09-14-2024 Patient encounter procedure 09/14/2024 8:40 AM EDT Office Visit [facility] [address] [facility] [address] [place] [address] Blaise Chicas, LUIS [address] [address] [facility] Start: 08-24-2024 End: 08-24-2024 Patient encounter procedure [facility] Comment on above: Arrived Start: 07-16-2024 Influenza vaccination Influenza Vacc ine (#1) [facility] Immunizations Immunization Date Immunization Notes Care Provider Fa cility 08-20-2023 influenza virus vaccine, unspecified formulation Barrie Montoya MD Work Phone: [facility] 10-21-2022 SARS-CoV-2 (COVID-19 ) [id number] Nereydabruce Gomez [facility] Comment on above: Result Comment: 2022: [id number] 08-26-2021 SARS-CoV-2 (COVID-19 ) mRNA BNT-162b2 vax Nereyda Patricia [facility] 01-01-2021 SARS-CoV-2 (COVID-19 ) mRNA BNT-162b2 vax Nereyda Patricia [facility] 12-09-2020 SARS-CoV-2 (COVID-19 ) mRNA BNT-162b2 vax Nereyda Patricia [facility] 08-27-2020 influenza virus vaccine, unspecified formulation Nereyda Patricia [facility] 08-16-2017 pneumococcal conjugate vaccine, 13 valent Nereydabruce JoyaPatricia [facility] 08-05-2017 influenza, unspecified formulation Nereyda Patricia [facility] 09-20-2015 zoster vaccine, live [facility] NEGATED: Highlighted row has not occurred!10-13-2023 influenza virus vaccine, unspecified formulation Nereyda Gomez [facility] NEGATED: Highlighted row has not occurred!09-29-2023 influenza virus vaccine, unspecified formulation Nereyda Gomez [facility] Payers Date Payer Category Payer Unknown 2005 Unknown [id number] 2004 Medicare MEDICARE MEDICAR E PART B [id number] 2004-[place] [address] [place] [address] Medicare [id number] 1959 Medicare [id number] 1939 Unknown [id number] [id number]7 1939 Unknown [id number] 2.16.840.1.032027.3.579.2.593 1939 Unknown [id number] 2.16.840.1.396960.3.579.2.593 1939 Unknown [id number] 2.16.840.1.204627.3.579.2.593 1939 Unknown [id number] 2.16.840.1.407297.3.579.2.593 1939 Unknown [id number] 2.16.840.1.239422.3.579.2.593 1939 Unknown [id number] 2.16.840.1.461842.3.579.2.593 1939 Unknown [id number] 2.16.840.1.219265.3.579.2.593 1939 Unknown [id number] 2.16.840.1.542804.3.579.2.593 1939 Unknown [id number] 2.16.840.1.699237.3.579.2.593 1939 Unknown [id number] 2.16.840.1.724583.3.579.2.593 1939 Unknown [id number] 2.16.840.1.841930.3.579.2.593 1939 Unknown [id number] 2.16.840.1.752861.3.579.2.727 1939 Unknown [id number] 2.16.840.1.971712.3.579.2.727 1939 Unknown [id number] 2.16840.1.395653.3.579.2.727 1939 Unknown [id number] 2.840.1.145481.3.579.2.727 1939 Unknown [id number] 2.16840.1.978380.3.579.2.727 1939 Unknown [id number] 2.16840.1.532252.3.579.2.727 1939 Unknown [id number] 2.16840.1.830695.3.579.2.727 1939 Unknown [id number] 2.16840.1.012184.3.579.2.727 1939 Unknown [id number] 2.16840.1.790690.3.579.2.1259 1939 Unknown [id number] 2.16.840.1.560206.3.579.2.1259 1939 Unknown [id number] 2.16.840.1.800525.3.579.2.1259 1939 Unknown [id number] 2.16.840.1.889440.3.579.2.1259 1939 Unknown [id number] 2.16.840.1.774419.3.579.2.1259 1939 Unknown [id number] 2.16.840.1.196311.3.579.2.1259 1939 Unknown [id number] 2.16.840.1.369244.3.579.2.1259 1939 Unknown [id number] 2.16.840.1.360380.3.579.2.1259 1939 Unknown [id number] 2.16.840.1.926060.3.579.2.1259 1939 Unknown [id number] 2.16.840.1.636279.3.579.2.1259 Social History Date Type Detail Facility Start: 03-31-2022 End: 08-24-2024 Tobacco smoking status Ex-smoker (finding) [facility] Tobacco smoking status Never [facility] Start: 08-24-2024 Sex Assigned At Male [facility] Start: 08-24-2023 Tobacco smoking stat [facility] Tobacco smoking consumption unknown [facility] Start: 08-03-2024 End: 08-24-2024 Alcoholic beverage intake Lifetime non-drinker (finding) [facility] Start: 09-07-2023 Alcohol Comment caffeine 1-2 cups/da y [facility] Start: 1940 Sex assigned at Not on file [facility] History of tobacco use Current smoker [facility] History of tobacco use Cigarette Smoker [facility] Start: 08-24-2024 Tobacco use and exposure Smokeless tobacco non-user [facility] Start: 08-24-2024 History of Social function [facility] Functional Status Date Assessment Result Facility 08-08-2024 Functional Status N/A [facility] 10-14-2023 Functional Status N/A [facility] 10-01-2023 Functional Status No [facility] 04-13-2023 Functional Status N/A [facility] 06-09-2022 Functional Status N/A [facility] 05-11-2022 Functional Status N/A Nick Dimas [facility] Clinical Notes 03-31-2022 to 08-24-2024 Rodney Joy MD - 08/24/2024 10:50 AM EDTTelephone Encounter - Sammy Esposito - 08/17/2024 11:54 AM EDTTelephone Encounter - Sammy Esposito - 08/17/2024 11:54 AM EDTLaboratory Note Date & Type Note Facility 08-24-2024 History of Present illness Narrative Skin Check Location: Patient requests a skin examination from the waist up Dermatologic history: history of Actinic Keratosis, history of Basal Cell Carcinoma Last visit: 1 year ago Established patient All pertinent medical history, medications, and allergies were reviewed. General Exam: alert, oriented to person, place, and time, normal affect, well appearing Accompanied by spouse A complete skin exam was offered, pt declined. Areas not examined despite medical recommendation: From the waist down Scalp, Examined , exam limited by hair Head, Face Examined Neck Examined Chest Examined Back Examined Abdomen Examined Right arm Examined Left arm Examined Hands Examined Digits,nails: Examined Lymphatics: Not examined 1. Melanocytic nevus of trunk Torso - Posterior (Back) Scattered benign appearing, regular brown to light brown melanocytic papules and macules with similar morphology Counseled regarding these benign growths. Rarely, a nevus can develop into malignant melanoma, so any changing nevi should be promptly re-evaluated. 2. Actinic keratosis (8) Left Forehead, Left Scaphoid Fossa, Mid Forehead, Mid Parietal Scalp, Right Forehead, Right Hand - Posterior, Right Mid Clawson, Right Wrist - Posterior Erythematous scaly papules Patient was counseled regarding these sun-induced growths that can develop into squamous cell carcinoma if left untreated. Discussed treatment with cryotherapy. It was emphasized that any treated lesions that fail to resolve should be re-evaluated. Cryotherapy performed today; see procedure note Diagnosis: Actinic keratosis Indication: Precancerous Location: see skin exam Consent: Verbal consent was obtained and risks were discussed, including, but not limited to risks of scarring, darker or multigrapher pigmentary changes, recurrence, incomplete removal and infection. Method: Liquid nitrogen was used to treat the lesion(s) with two 5-10 second freeze-thaw cycles. Number of lesions treated: 8 Post-procedure instructions: Instructions were given orally and in writing. The office will be contacted if the lesion fails to resolve despite treatment, or if a side effect develops such as abnormal crusting, scabbing, redness or tenderness Cryotherapy, skin lesion - Left Forehead, Left Scaphoid Fossa, Mid Forehead, Mid Parietal Scalp, Right Forehead, Right Hand - Posterior, Right Mid Clawson, Right Wrist - Posterior 3. Lentigines (2) Head - Anterior (Face), Torso - Posterior (Back) Scattered krishnamurthy macules in sun-exposed areas. The patient was informed that lentigines are benign pigmented lesions that occur on sun-exposed and sun-damaged skin. No treatment is necessary. Recommended regular use of broad spectrum sunscreen SPF 30 or higher 4. Seborrheic keratosis (2) Mid Frontal Scalp, Mid Parietal Scalp Stuck on verrucous, krishnamurthy-brown papules and plaques. Patient was counseled regarding these benign growths. Removal is normally not necessary, but they may be removed if they are symptomatic or for cosmetic reasons. Next Visit: 1 year documented in this encounter [facility] 08-17-2024 Telephone encounter Note Spoke with advised her of Dr. Montoya's answer and if he had any issues to call back. [facility] 08-17-2024 Miscellaneous Notes Spoke with advised her of Dr. Montoya's answer and if he had any issues to call back. called states patient is too sleepy on the Primidone 250 mg that was incr. On 08/01/24 from 50/50/100 to 1/2 pill bid (verbally instructed that, if too sleepy with this AM dose, take 1/4 1/4 1/2 pill). He has decreased to to 1/4, 1/4, 1/2. He is still too sleepy. says he sat down at the table this morning and took his morning dose and shortly there after he fell asleep at the table. documented in this encounter [facility] 08-14-2024 Telephone encounter Note called states patient is too sleepy on the Primidone 250 mg that was incr. On 08/01/24 from 50/50/100 to 1/2 pill bid (verbally instructed that, if too sleepy with this AM dose, take 1/4 1/4 1/2 pill). He has decreased to to 1/4, 1/4, 1/2. He is still too sleepy. says he sat down at the table this morning and took his morning dose and shortly there after he fell asleep at the table. [facility] 08-08-2024 Hospital Discharge instructions Patient Education 08/08/2024 [...] including vitamins, herbs, eye drops, creams, and nqkv-imy-zecwpum medicines. Any problems you or family members [...] provider tells you to take them. Taking ibzr-rpw-fiflxsk medicines, vitamins, herbs, and supplements. Tests You [...] Follow these instructions at home: Medicines Take cpwg-xmi-zvoqbpx and prescription medicines only as told by [...] provider. Document Revised: 07/15/2022 Document Reviewed: 06/13/2021 [email or web address] Patient Education 2023 Penxy. Follow Up Care 08/07/2024 08:55:26 With:MARQUIS CAMPBELL MD, URL Address: When: Unknown [facility] 08-08-2024 Note Patient Education Urology Cystoscopy Cystoscopy [...] including vitamins, herbs, eye drops, creams, and ptrf-cel-vqfhrso medicines. ? Any problems you or family [...] tells you to take them. ? Taking qclx-isq-egbcxng medicines, vitamins, herbs, and supplements. Tests You [...] these instructions at home: Medicines ? Take kwua-srs-zlvdjls and prescription medicines only as told by [...] health care provider, (more content not included)... [facility] 07-05-2024 Note [facility] Patient: Nadir Beth; 84 y.o. Visit date: 07/05/24 Reason for today's visit: Follow up for CKD stage 3, Hypertension, Edema/ Fluid overload, and Electrolytes disturbances SUBJECTIVE: BACKGROUND: Nadir Beth is a 84 y.o. male has a past medical history of Atrial fibrillation ([facility]), CHF (congestive heart failure) ([facility]), Chronic kidney disease, COPD (chronic obstructive pulmonary disease) ([facility]), Coronary artery disease, Diabetes mellitus ([facility]), Heart valve disease, Hypertension, Pericardial effusion, and Sleep apnea. History of paroxysmal atrial fibrillation maintained on anticoagulation with Eliquis, aortic stenosis, renal artery stenosis, and hypertension. He had stenting of the left renal artery from the left radial approach on 05/01/2015 (Express SD 6 mm x 18 mm stent). He was admitted to the [facility] in August 2022 due to hyponatremia, [...] or chew. p (more content not included)... [facility] 06-07-2024 Note Attestation signed by Ruthie Linda MD at 06/07/2024 7:40 PM I saw, interviewed, examined and evaluated the patient with Nephrology fellow Dr. Jeff Reyes. I participated in the medical management of the patient. I reviewed the fellow's note and agree with the fellow's documentation in the note. Ruthie Linda MD Faculty, Division of Nephrology, Department of Medicine, [facility]. [facility] Patient: Nadir Beth; 84 y.o. Visit date: 06/07/24 Reason for today's visit: Follow up for CKD stage 3, Hypertension, Edema/ Fluid overload, and Electrolytes disturbances SUBJECTIVE: BACKGROUND: Nadir Beth is a 84 y.o. male has a past medical history of Atrial fibrillation ([facility]), CHF (congestive heart failure) ([facility]), Chronic kidney disease, COPD (chronic obstructive pulmonary disease) ([facility]), Coronary artery disease, Diabetes mellitus ([facility]), Heart valve disease, Hypertension, Pericardial effusion, and Sleep apnea. History of paroxysmal atrial fibrillation maintained on anticoagulation with Eliquis, aortic stenosis, renal artery stenosis, and hypertension. He had stenting of the left renal artery from the left radial approach on 05/01/2015 (Express SD 6 mm x 18 mm stent). He was admitted to the [facility] in August 2022 due to hyponatremia, [...] (Vitamin D3) 25 (more content not included)... [facility] 06-05-2024 Note [place] - [facility] Subjective Nadir Beth is a 84 y.o. year old male [...] diuretic therapy. He was admitted to the [facility] in August 2022 due to hyponatremia, hyperkalemia and acute kidney injury, leukocytosis secondary to COVID-19 causing dehydration. I saw him on 05/24/2023 and the office and he had significant evidence of volume overload by exam and echocardiogram. I intensified his diuretic regimen. He ended up getting admitted to the [facility] with acute heart failure exacerbation and [...] and 2+ o (more content not included)... [facility] 03-03-2024 Note [place] [facility] - [facility] Subjective Nadir Beth is a 84 y.o. year old male [...] extremity edema. He was admitted to the [facility] in August 2022 due to hyponatremia, hyperkalemia and acute kidney injury, leukocytosis secondary to COVID-19 causing dehydration. I saw him on 05/24/2023 and the office and he had significant evidence of volume overload by exam and echocardiogram. I intensified his diuretic regimen. He ended up getting admitted to the [facility] with acute heart failure exacerbation and [...] Musculoskeletal: General: N (more content not included)... [facility] 11-17-2023 Note Attestation signed by Ruthie Linda MD at 11/21/2023 6:55 PM I saw, interviewed, examined and evaluated the patient with Nephrology fellow, Dr. Dana Aparicio. I participated in the medical management of the patient. I reviewed the fellow's note and agree with the fellow's documentation in the note. Ruthie Linda MD Faculty, Division of Nephrology, Department of Medicine, [facility]. [facility] Patient: Nadir Beth; 83 y.o. Visit date: 11/17/23 Reason for today's visit: Follow up for CKD stage 3, Hypertension, Edema/ Fluid overload, and Electrolytes disturbances SUBJECTIVE: BACKGROUND: Nadir Beth is a 83 y.o. male has a past medical history of Atrial fibrillation ([facility]), CHF (congestive heart failure) ([facility]), Chronic kidney disease, COPD (chronic obstructive pulmonary disease) ([facility]), Coronary artery disease, Diabetes mellitus ([facility]), Heart valve disease, Hypertension, Pericardial effusion, and Sleep apnea. History of paroxysmal atrial fibrillation maintained on anticoagulation with Eliquis, aortic stenosis, renal artery stenosis, and hypertension. He had stenting of the left renal artery from the left radial approach on 05/01/2015 (Express SD 6 mm x 18 mm stent). He was admitted to the [facility] in August 2022 due to hyponatremia, [...] place, and time (more content not included)... [facility] 10-14-2023 Hospital Discharge instructions Patient Education [...] as fried or sweet foods. These include indonesian fries, hamburgers, cookies, candies, and soda. Drink enough fluid to keep your urine pale yellow. General instructions Exercise regularly or as told by your health care provider. Try to do 150 minutes of moderate exercise each week. Use the bathroom when you have the urge to go. Do not hold it in. Take pjmr-qgs-ooynbrl and prescription medicines only as told by [...] to keep your urine pale yellow. Take gzkw-cft-rkjbusd and prescription medicines only as told by your health care provider. This includes any fiber supplements. This information is not intended to replace advice given to you by your health care provider. Make sure you discuss any questions you have with your health care provider. Document Revised: 09/18/2020 Document Reviewed: 09/18/2020 [email or web address] Patient Education 2022 Penxy. Follow Up Care 10/01/2023 12:57:46 With:Nereyda Gomez CNP Address: When:1 month [facility] 10-01-2023 Hospital Discharge instructions Patient [...] Bulgur wheat. Millet. Quinoa. Bran muffins. Popcorn. Moselle wafer crackers. Meats and other proteins [place] beans, kidney beans, and mendez beans. Soybeans. [...] Cream cheese. Sour cream. Fats and oils [place]. Beverages Soft drinks. Other foods Cakes and [...] provider. Document Revised: 03/06/2021 Document Reviewed: 03/06/2021 [email or web address] Patient Education 2022 Penxy. Follow Up Care 09/20/2023 08:43:45 With:Nereyda Gomez CNP Address:Unknown When: Unknown [facility] 10-01-2023 Evaluation + Plan note Future Scheduled TestsCBC w/ Auto Diff 10/01/23Comprehensive Metabolic Panel 10/01/23Thyroid Stimulating Hormone 10/01/23 [facility] 09-17-2023 Note [place] - [facility] Subjective Nadir Beth is a 83 y.o. year old male [...] extremity edema. He was admitted to the [facility] in August 2022 due to hyponatremia, hyperkalemia and acute kidney injury, leukocytosis secondary to COVID-19 causing dehydration. I saw him on 05/24/2023 and the office and he had significant evidence of volume overload by exam and echocardiogram. I intensified his diuretic regimen. He ended up getting admitted to the [facility] with acute heart failure exacerbation and [...] Allergies Allergen Reactions Iodinated Contrast Media Nitroglycerin Jgpzndx-Twp-Fjf Reductase Inhibitors Medications Current Outpatient Medications: (more content not included)... [facility] 08-31-2023 Note Patient: Nadir lin Procedure Information Date/Time: 08/31/23 1300 Procedure: TRANSESOPHAGEAL ECHO (MARK) Location: [facility] Vascular Lab Clinical information reviewed: Allergies Meds Physical Exam Airway Mallampati: III TM distance: >3 FB Cardiovascular Rhythm: regular Rate: normal (+) murmur Dental Pulmonary Breath sounds clear to auscultation Abdominal Abdomen: soft Anesthesia Plan ASA 4 (Conscious sedation) Anesthetic plan and risks discussed with patient. Use of blood products discussed with patient who. Additional Equipment Requests [facility] 07-21-2023 Note [place] [facility] - [facility] Subjective Nadir Beth is a 83 y.o. year old male [...] extremity edema. He was admitted to the [facility] in August 2022 due to hyponatremia, hyperkalemia and acute kidney injury, leukocytosis secondary to COVID-19 causing dehydration. I saw him on 05/24/2023 and the office and he had significant evidence of volume overload by exam and echocardiogram. I intensified his diuretic regimen. He ended up getting admitted to the [facility] with acute heart failure exacerbation and [...] Allergies Allergen Reactions Iodinated Contrast Media Nitroglycerin Abwlzwa-Pdq-Hsy Reductase Inhibitors Medications Current Outpatient Medications: acyclovir [...] day by (more content not included)... [facility] 06-10-2023 Hospital Discharge instructions Patient [...] hard liquor (44 mL). General instructions Take muxf-wne-tulqagk and prescription medicines only as told by [...] provider. Document Revised: 02/19/2021 Document Reviewed: 02/19/2021 [employer] Patient Education 2022 Penxy. Follow Up Care 04/13/2023 14:39:27 With:Nereyda Gomez CNP Address: When:3 months [facility] 04-13-2023 Hospital Discharge instructions Patient [...] including vitamins, herbs, eye drops, creams, and fcqd-xgg-knlfzdv medicines. Any problems you or family members [...] provider tells you to take them. Taking ggjv-kbn-olwkycq medicines, vitamins, herbs, and supplements. General instructions [...] provider. Document Revised: 10/26/2022 Document Reviewed: 06/24/2022 [email or web address] Patient Education 2022 Penxy. Follow Up Care 04/09/2023 11:27:16 With:Nereyda Gomez CNP Address: When:1 month [facility] 07-18-2022 Note EXAM: US CHANI [...] authenticated by: LI ROBERTS Date: 2022-07-18 09:05 [facility] 06-09-2022 Hospital Discharge instructions Patient Education 06/09/2022 [...] serving. Talk with a diet and nutrition worker (dietitian) if you have questions about specific [...] Bulgur wheat. Millet. Quinoa. Bran muffins. Popcorn. Moselle wafer crackers. Meats and other proteins [place], kidney, and mendez beans. Soybeans. Split peas. [...] Cream cheese. Sour cream. Fats and oils [place]man. Beverages Soft drinks. Other foods Cakes and [...] 11/01/2006 Document Revised: 09/05/2018 Document Reviewed: 09/05/2018 [email or web address] Patient Education 2020 Penxy. 06/09/2022 10:13:34 Hemorrhoids Hemorrhoids Hemorrhoids are swollen [...] 3 times a day. General instructions Take twan-mko-onsfmku and prescription medicines only as told by [...] 10/29/2001 Document Revised: 03/29/2020 Document Reviewed: 03/23/2019 [email or web address] Patient Education 2020 [email or web address] 06/09/2022 10:13:31 Diverticulosis Diverticulosis Diverticulosis is [...] overweight. Not getting enough exercise. Smoking. Taking nmvd-qld-rztwxfq pain medicines, like aspirin and ibuprofen. Having [...] care provider or your diet and nutrition worker (dietitian). ?Take a fiber supplement or probiotic, if your health care provider approves. Take wqca-zpf-ggqepxd and prescription medicines only as told by [...] 07/29/2005 Document Revised: 10/14/2018 Document Reviewed: 09/20/2017 [email or web address] Patient Education 2020 Penxy. 06/09/2022 10:13:30 Colon Polyps Colon Polyps Polyps [...] 07/28/2005 Document Revised: 02/16/2019 Document Reviewed: 02/16/2019 [email or web address] Patient Education 2020 Penxy. Follow Up Care 05/13/2022 14:18:17 With:Patricia BRITT Nereyda Cara Address: When:1 year only if needed [facility] 05-11-2022 Evaluation + Plan note Extrac fernando from: Title:Anesthesia post op endo Author:Jeffrey Gr MD Date:05/11/22 Plan Transfer/ Discharge: Patient can be discharged from PACU when criteria met. Condition good. Extracted from: Title:Anesthesia Pre-Op endo 2 Author:Jeffrey Gr MD Date:05/11/22 Plan [place] Citizen Society of Anesthesiologists (ASA) physical status classification: [...] heart and lungs, allergic reactions, and .. [facility]06-27-2022 Hospital Discharge instructions Patient Education 05/11/2022 11:13:39 Colonoscopy, Care After Surgery Salqiana (CUSTOM) Colonoscopy Care After Surgery Please read the instructions outlined below and refer to this sheet in the next few weeks. These discharge instructions provide you with general information on [facility] Your doctor may also give you [...] 07/28/2005 Document Revised: 02/16/2019 Document Reviewed: 02/16/2019 [email or web address] Patient Education 2020 Penxy. 05/11/2022 11:13:39 Diverticulosis MAGR (CUSTOM) Diverticulosis Many [...] unsweetened, w/added ascorbic acid 1 cup 0.5 Sweetwater 1 cup 0.7 Vegetables Cooked Green beans 1 cup 4.0 Carrots 1/2 cup sliced 2.3 Peas 1 cup 8.8 Potato (baked, with skin) 1 medium potato 3.8 Raw [place] (with peel) 1 cucumber 1.5 Lettuce 1 [...] 8.7 Peanuts 1/2 cup 7.9 Chart from [facility] 2013. SEEK IMMEDIATE MEDICAL CARE IF: [...] Information adapted from: ExitCare Patient Information 2009 [employer]. real trends 2012 http://www.[facility]/contents/eamjczuzikpu-wdeheef-rxabas-the-basics Follow Up Care 03/31/2022 10:27:32 With:Napoleon JASQIANA Address: [facility] [address] [place] [address] Business (1) When: Unknown Comments:office will call for follow up [facility]05-17-2022 Hospital Discharge instructions Patient Education 03/31/2022 [...] including vitamins, herbs, eye drops, creams, and qcbh-trt-uhbkxqt medicines. Any problems you or family members [...] 10/29/2001 Document Revised: 08/24/2018 Document Reviewed: 01/12/2017 [email or web address] Patient Education 2020 Penxy. Follow Up Care 03/23/2022 12:11:50 With:Nereyda Gomez CNP Address: When:1 month [facility] Evaluation + Plan note Future Appointments Appointment Date:05/25/2022 08:45:00 AM Scheduled Provider: Location:[facility] Appointment Type:Surgery FT [facility] Evaluation + Plan note Future Appointments Appointment Date:06/10/2023 10:40:00 AM Scheduled Provider:Nereyda Gomez CNP Location:[facility] Appointment Type:[facility] Follow Up Future Scheduled Tests Laboratory* Fecal WBC Lactoferrin 04/13/23 * Giardia lamblia, Direct Detection EIA 04/13/23 * O & P Exam, Routine 04/13/23 * Clostridium Difficile PCR 04/13/23 * Enteric Panel by PCR 04/13/23 [facility] Evaluation + Plan note Future Appointments Appointment Date:06/10/2023 10:40:00 AM Scheduled Provider:Nereyda Gomez CNP Location:[facility] Dig[facility]ive [facility] Appointment Type:[facility] Follow Up Diagnostic Tests Pending * O & P Exam, Routine 04/15/23 * Giardia lamblia, Direct Detection EIA [facility]15[facility]23 [facility] App[facility]ments Appointment Date:09/13/2023 10:40:00 AM Scheduled Provider:Nereyda Gomez CNP Location:[facility] Appointment Type:BAD Follow Up [facility] Evaluation + Plan note Future Appointments Appointment Date:10/14/2023 02:20:00 PM Scheduled Provider:Nereyda Gomez CNP Location:[facility] Digestive [facility] Appointment Type:[facility] Follow Up Future Scheduled Tests Laboratory* CBC w/ Auto Diff 10/01/23 * Comprehensive Metabolic Panel 10/01/23 * Thyroid Stimulating Hormone 10/01/23 [facility] Evaluation + Plan note Future Appointments Appointment Date:12/09/2023 02:00:00 PM Scheduled Provider:Nereyda Gomez CNP Location:[facility] Appointment Type:[facility] Follow Up Future Scheduled Tests Laboratory* CBC w/ Auto Diff 10/01/23 * Comprehensive Metabolic Panel 10/01/23 * Thyroid Stimulating Hormone 10/01/23 [facility] evaluation note* Diagnosis Melanocytic nevus of trunk- Primary Benign neoplasm of skin of trunk, except scrotum Actinic keratosis Lentigines Seborrheic keratosis [facility] No data available for this section [facility] Hospital Discharge instructions No data available for this section [facility] No data available for this section [facility] Summary Purpose Family History No Family History Records FoundNo Family History Records Found No data available for this section No data available for this section No data available for this section No data available for this section No Family History Records Found No data available [...] and content) DATE CREATED AUTHOR 02/09/2019 [facility] DATE CREATED AUTHOR AUTHOR'S ORGANIZ ATION 03/28/2023 [facility] DATE CREATED AUTHOR AUTHOR'S ORGANIZ ATION 07/12/2024 [facility] DATE CREATED AUTHOR AUTHOR'S ORGANIZ ATION 08/24/2024 [facility] DATE CREATED AUTHOR AUTHOR'S ORGANIZ ATION 08/26/2024 [facility] dical Specialists EPIC Care Team (unrecognized sect ion and content) [employer] Relationship Specialty Start Date End Date Van Youssef MD [address] [place] [address] PCP - General Family Medicine 12/02/23 [employer] Relationship Specialty Start Date End Date Van Youssef MD [address] [place] [address] PCP - General Family Medicine 12/02/23 [employer] Relationship Specialty Start Date End Date Van Youssef MD [address] [place] [address] PCP - General Family Medicine 12/02/23 Reason for Visit (unrecogniz ed section and content) Reason Comments Skin Check FOR RECORDS PERTAINING TO PATIENTS WHO ARE [...] BE BASED ON THE PRIMARY CLINICAL RECORDS. [facility] [employer] provides no warranty or guarantee of the accuracy or completeness of information in this document.
[2024-09-08 12:22] LABS: Basophils Percent Auto 0.5 % (0.2-2.0); Eosinophils Absolute Auto 0.1 10^3/uL (0.0-0.7); Eosinophils Percent Auto 1.5 % (0.9-7.0); Hematocrit 46.9 % (42.0-54.0); Hemoglobin 15.8 g/dL (14.0-18.0); Immature Granulocytes Abs Auto 0.03 10^3/uL (0.00-0.03); Immature Granulocytes Pct Auto 0.4 % (0.0-0.5); Lymphocytes Absolute Auto 0.9 10^3/uL (1.2-3.8); Lymphocytes Percent Auto 11.7 % (20.5-60.0); Mean Corpuscular HGB Conc 33.7 g/dL (29.9-35.2); Mean Corpuscular Hemoglobin 34.2 pg (25.9-34.0); Mean Corpuscular Volume 101.5 fL (80.0-94.0); Mean Platelet Volume 11.3 fL (9.5-13.5); Monocytes Absolute Auto 0.6 10^3/uL (0.3-0.8); Monocytes Percent Auto 8.1 % (1.7-12.0); Neutrophils Absolute Auto 6.1 10^3/uL (1.4-6.5); Neutrophils Percent Auto 77.8 % (43.0-75.0); Platelet Count 168 10^3/uL (150-450); Red Blood Count 4.62 10^6/uL (4.70-6.10); Red Cell Distribution Width 14.3 % (11.0-15.0); White Blood Count 7.9 10^3/uL (4.0-11.0)
--- NOTE | 2024-09-08 12:26 | ED_ITS ---
HPI - Altered Mental Status General Chief Complaint: Altered Mental Status Stated Complaint: CONFUSION Time Seen by Provider: 09/08/24 11:53 Mode of arrival: Wheelchair Limitations: no limitations History of Present Illness HPI narrative: 84-year-old male presents to the emergency department for an episode of confusion which is now resolved. He was at the grocery store and was sitting in his car and the patient tells me that he did not understand what was happening and he almost backed up and somebody but did not. His states that he was confused and on the way here he got much better and it is resolved completely according to his and daughter. Similar circumstances happened a few weeks ago and he was admitted here. He has a headache but otherwise has no physical complaints. He has not had a fever or cough or chest pain or shortness of breath recently. Related Data Home Medications ?Medication ?Instructions ?Recorded ?Confirmed ACETAMINOPHEN PM 1 tab PO BEDTIME 05/31/23 08/16/24 Vitamin B-Complex 1 tab PO .NOON 05/31/23 09/08/24 acyclovir 400 mg tablet 400 mg PO Q12H 05/31/23 09/08/24 alogliptin 25 mg tablet 25 mg PO DAILY 05/31/23 09/08/24 apixaban 2.5 mg tablet 2.5 mg PO BID 05/31/23 09/08/24 aspirin 81 mg tablet,delayed 81 mg PO DAILY 05/31/23 09/08/24 release (Adult Low Dose Aspirin) cholecalciferol (vitamin D3) 50 2,000 unit PO DAILY 05/31/23 09/08/24 mcg (2,000 unit) tablet (Thera-D) dicyclomine 10 mg capsule 10 mg PO QID PRN abdominal pain 05/31/23 09/08/24 empagliflozin 25 mg tablet 25 mg PO DAILY 05/31/23 08/16/24 (Jardiance) ezetimibe 10 mg tablet 10 mg PO DAILY 05/31/23 09/08/24 ferrous sulfate 325 mg (65 mg 325 mg PO BID 05/31/23 08/16/24 iron) tablet furosemide 40 mg tablet 40 mg PO Q12H 05/31/23 09/08/24 glimepiride 4 mg tablet 8 mg PO DAILY 05/31/23 09/08/24 labetalol 300 mg tablet 300 mg PO Q12H 05/31/23 09/08/24 magnesium See Rx Instructions PO BID 05/31/23 08/16/24 metoclopramide HCl 5 mg tablet 5 mg PO BEDTIME 05/31/23 09/08/24 tamsulosin 0.4 mg capsule 0.4 mg PO Q24H 05/31/23 09/08/24 alprazolam 0.25 mg tablet 0.25 mg PO BID 08/16/24 09/08/24 dextromethorphan-guaifenesin 30 1 tab PO Q12H 08/16/24 08/16/24 mg-600 mg tablet extended [id number] hr duloxetine 20 mg capsule,delayed 20 mg PO .QD 08/16/24 09/08/24 release escitalopram oxalate 5 mg tablet 5 mg PO .QD 08/16/24 09/08/24 pioglitazone 45 mg tablet (Actos) 45 mg PO DAILY 08/16/24 09/08/24 potassium chloride 20 mEq 40 meq PO .QD 08/16/24 09/08/24 tablet,extended release(part/cryst) Previous Rx's ?Medication ?Instructions ?Recorded clonidine HCl 0.1 mg tablet 0.2 mg (2 x 0.1 mg) PO Q12H #120 08/17/24 tabs Allergies Allergy/AdvReac Type Severity Reaction Status Date / Time nitroglycerin Allergy Intermediate Hypotension Verified 09/08/24 12:03 Iodinated Contrast Media AdvReac Intermediate renal Verified 09/08/24 12:03 problem Review of Systems ROS Narrative A ten point review of systems is negative except as noted above. [facility] Medical History (Updated 09/08/24 @ 15:15 by Flaco Haynes MD) Lethargy ?R53.83 - Other fatigue (ICD-10) Difficulty with speech ?R47.9 - Unspecified speech disturbances (ICD-10) AMS (altered mental status) ?R41.82 - Altered mental status, unspecified (ICD-10) Balanitis ?N48.1 - Balanitis (ICD-10) Pulmonary edema ?J81.1 - Chronic pulmonary edema (ICD-10) Dyspnea ?R06.00 - Dyspnea, unspecified (ICD-10) Congestive heart failure ?I50.9 - Heart failure, unspecified (ICD-10) Heart failure ?I50.9 - Heart failure, unspecified (ICD-10) Neuropathy ?G62.9 - Polyneuropathy, unspecified (ICD-10) Occasional tremors ?R25.1 - Tremor, unspecified (ICD-10) History of diverticulosis ?Z87.19 - Personal history of other diseases of the digestive system (ICD-10) History of sleep apnea ?Z86.69 - Personal history of other diseases of the nervous system and sense organs (ICD-10) Diabetes ?E11.9 - Type 2 diabetes mellitus without complications (ICD-10) History of hypertension ?Z86.79 - Personal history of other diseases of the circulatory system (ICD- 10) History of gastroesophageal reflux (GERD) ?Z87.19 - Personal history of other diseases of the digestive system (ICD-10) History of asthma ?Z87.09 - Personal history of other diseases of the respiratory system (ICD- 10) Surgical History (Updated 10/10/23 @ 08:33 by Oscar Jewell) History of cardiac catheterization ?Z98.890 - Other specified postprocedural states (ICD-10) History of cholecystectomy ?Z90.49 - Acquired absence of other specified parts of digestive tract (ICD- 10) Family History (Updated 08/16/24 @ 11:04 by Ciarra Villalta RN) Father Family history of myocardial infarction Family history of CHF (congestive heart failure) Family history of hypertension Mother Family history of cancer Grandmother Family history of diabetes mellitus Social History (Updated 08/16/24 @ 11:05 by Ciarra Villalta RN) Within the past year, how often did you have a drink containing alcohol: 2-4 times a month Smoking status: Former smoker Non-prescribed substance use: denies use Highest level of school completed/degree received: 9th grade Little interest or pleasure in doing things: not at all Feeling down, depressed, or hopeless: several days Exam Narrative Exam Narrative: Nurses note and vital signs reviewed and patient is not hypoxic. General: The patient appears well and in no apparent distress. Patient is resting comfortably on cart. Skin: Warm, dry, no pallor noted. There is no rash noted. Head: Normocephalic, atraumatic Eye: Normal conjunctiva, no drainage Ears, Nose, Mouth, and Throat: oral mucosa is moist. Nares patent. Cardiovascular: Regular Rate and Rhythm Respiratory: Patient is in no distress, no accessory muscle use, lungs are clear to auscultation, no wheezing, rales or rhonchi Back: non-tender GI: no tenderness to palpation, no masses appreciated. No rebound, guarding, or rigidity noted. Musculoskeletal: The patient has no evidence of calf tenderness, no pitting edema, symmetrical pulses noted bilaterally Neurological: Awake and alert and oriented x 4. Cranial nerves II through XII intact. Upper and lower extremity strength 5 out of 5 and symmetric Psychiatric: Cooperative Constitutional Vital Signs, click to edit/add: Last Vital Signs Temp 98.1 F 09/08/24 11:57 Pulse 71 09/08/24 14:28 Resp 20 09/08/24 14:28 BP 160/70 H 09/08/24 15:12 Pulse Ox 96 09/08/24 14:28 O2 Del Method Room Air 09/08/24 14:28 Course Vital Signs Vital signs: Vital Signs Temperature 98.1 F 09/08/24 11:57 Pulse Rate 77 09/08/24 11:57 Respiratory Rate 20 09/08/24 11:57 Blood Pressure 191/108 H 09/08/24 11:57 Pulse Oximetry 95 09/08/24 11:57 Oxygen Delivery Method Room Air 09/08/24 11:57 Temperature 98.1 F 09/08/24 11:57 Pulse Rate 71 09/08/24 14:28 Respiratory Rate 20 09/08/24 14:28 Blood Pressure 160/70 H 09/08/24 15:12 Pulse Oximetry 96 09/08/24 14:28 Oxygen Delivery Method Room Air 09/08/24 14:28 MDM - Altered Mental Status MDM Narrative Medical decision making narrative: His workup here including CAT scan is negative. By the time he arrived here his mentation was back to normal and he remains in a normal state according to the patient and his family members. We discussed options of discharge versus admission to the hospital. I discussed the case with the admitting physician as well. The patient and his family are comfortable going home and the patient will be discharged home. He was advised to return if symptoms return or worsen. Treatment diagnosis and follow-up were discussed thoroughly. He is not short of breath and I have no clinical suspicion of pulmonary edema. Differential Diagnosis Differential diagnosis: Likely altered mental status and hypoglycemia Lab Data Attestation: I reviewed the patient's lab results. Labs: Lab Results 09/08/24 09/08/24 09/08/24 Range/Units 11:58 12:07 12:30 WBC 7.9 (4.0-11.0) 10^3/uL RBC 4.62 L (4.70-6.10) 10^6/uL Hgb 15.8 (14.0-18.0) g/dL Hct 46.9 (42.0-54.0) % MCV 101.5 H (80.0-94.0) fL MCH 34.2 H (25.9-34.0) pg MCHC 33.7 (29.9-35.2) g/dL RDW 14.3 (11.0-15.0) % Plt Count 168 (150-450) 10^3/uL MPV 11.3 (9.5-13.5) fL Neut % (Auto) 77.8 H (43.0-75.0) % Lymph % (Auto) 11.7 L (20.5-60.0) % [place] % (Auto) 8.1 (1.7-12.0) % Eos % (Auto) 1.5 (0.9-7.0) % Baso % (Auto) 0.5 (0.2-2.0) % Neut # (Auto) 6.1 (1.4-6.5) 10^3/uL Lymph # (Auto) 0.9 L (1.2-3.8) 10^3/uL [place] # (Auto) 0.6 (0.3-0.8) 10^3/uL Eos # (Auto) 0.1 (0.0-0.7) 10^3/uL Baso # (Auto) 0.0 (0.0-0.1) 10^3/uL Abs Immat Gran (auto) 0.03 (0.00-0.03) 10^3/uL Imm/Tot Granulo (auto) 0.4 (0.0-0.5) % Sodium 139 (136-145) mmol/L Potassium 4.8 (3.5-5.1) mmol/L Chloride 102 (98-107) mmol/L Carbon Dioxide 25.6 (21.0-32.0) mmol/L Anion Gap 16.2 BUN 24.0 H (7.0-18.0) mg/dL Creatinine 1.59 H (0.70-1.30) mg/dL Est GFR ( Amer) 50 L (>=60 mL/min/1.73m^2) Est GFR (Non-Af Amer) 42 L (>=60 mL/min/1.73m^2) BUN/Creatinine Ratio 15.1 Glucose 215 H (74-106) mg/dL Calcium 9.0 (8.5-10.1) mg/dL Troponin I High Sens 14.8 (4.0-76.1) pg/mL Urine Color Lt. yellow (YELLOW) Urine Clarity Clear (CLEAR) Urine pH 7.0 (5.0-9.0) Ur Specific [place] 1.010 (1.005-1.025) Urine Protein Negative (NEG/TRACE) mg/dL Urine Glucose (UA) >=1000 A (NEGATIVE) mg/dL Urine Ketones Negative (NEGATIVE) mg/dL Urine Occult Blood Negative (NEGATIVE) Urine Nitrite Negative (NEGATIVE) Urine Bilirubin Negative (NEGATIVE) Urine Urobilinogen 0.2 (0.2-1.0) EU/dL Ur Leukocyte Esterase Negative (NEGATIVE) Urine RBC 0-2 (0-2) #/HPF Urine WBC 0-2 A (NONE SEEN) #/HPF Ur Squamous Epith Cells Rare (NONE/RARE) #/LPF Urine Crystals None seen (None Seen) #/HPF Urine Bacteria None seen (NONE SEEN) #/HPF Urine Casts None seen (NONE SEEN) #/LPF Urine Mucus None seen (NONE SEEN) POC Glucose 236 H (74-106) mg/dL Imaging Data CT scan - head: Radiologist's impression: ITS Impressions Chest X-Ray 09/08/24 11:54 IMPRESSION: Stable findings which in the right clinical setting are consistent with congestive heart failure and pulmonary edema. Correlate with clinical findings to exclude an underlying pneumonia. Electronically authenticated by: NATASHA GERBER Date: 09/08/2024 13:[address] 09/08/24 11:54 IMPRESSION: No acute intracranial process. No substantial change in appearance of the brain parenchyma compared to 08/16/2024. Electronically authenticated by: RATNA PETERS Date: 09/08/2024 13:08 ECG Data Attestation: I personally reviewed and interpreted this ECG as follows: (EKG on my interpretation shows atrial fibrillation without acute change) Discharge Plan Discharge Chief Complaint: Altered Mental Status Clinical Impression: Altered mental status Patient Disposition: Home, Self-Care Time of Disposition Decision: 15:14 Condition: Good Mode of Transportation: Private Vehicle Prescriptions / Home Meds: No Action pioglitazone [Actos] 45 mg tablet 45 mg PO DAILY alprazolam 0.25 mg tablet 0.25 mg PO BID duloxetine 20 mg capsule,delayed release(DR/EC) 20 mg PO .QD escitalopram oxalate 5 mg tablet 5 mg PO .QD potassium chloride 20 mEq tablet,ER particles/crystals 40 meq PO .QD dextromethorphan-guaifenesin 30-600 mg tablet extended release 12 hr 1 tab PO Q12H clonidine HCl 0.1 mg Tablet 0.2 mg PO Q12H Qty: 120 11RF acyclovir 400 mg tablet 400 mg PO Q12H dicyclomine 10 mg capsule 10 mg PO QID PRN (Reason: abdominal pain) ezetimibe 10 mg tablet 10 mg PO DAILY ferrous sulfate 325 mg (65 mg iron) tablet 325 mg PO BID furosemide 40 mg tablet 40 mg PO Q12H glimepiride 4 mg tablet 8 mg PO DAILY Rx Instructions: AT NOON labetalol 300 mg tablet 300 mg PO Q12H metoclopramide HCl 5 mg tablet 5 mg PO BEDTIME tamsulosin 0.4 mg capsule 0.4 mg PO Q24H magnesium 500 mg See Rx Instructions PO BID Rx Instructions: 2 TABLETS orally twice a day; Jardiance 25 mg tablet 25 mg PO DAILY Vitamin B-Complex tablet 1 tab PO .NOON cholecalciferol (vitamin D3) [Thera-D] 50 mcg (2,000 unit) tablet 2,000 unit PO DAILY ACETAMINOPHEN PM tablet 1 tab PO BEDTIME aspirin [Adult Low Dose Aspirin] 81 mg tablet,delayed release (DR/EC) 81 mg PO DAILY apixaban 2.5 mg tablet 2.5 mg PO BID alogliptin 25 mg tablet 25 mg PO DAILY Print Language: Faroese Instructions: Altered Mental Status (ED) Referrals: Pj Sung MD [Primary Care Provider] - 1 week
[2024-09-08 12:32] LABS: Anion Gap 16.2; BUN Creatinine Ratio 15.1; Carbon Dioxide 25.6 mmol/L (21.0-32.0); Chloride 102 mmol/L (98-107); Estimated GFR (African America 50 (>=60 mL/min/1.73m^2); Estimated GFR (Non-African Ame 42 (>=60 mL/min/1.73m^2); Glucose 215 mg/dL (74-106); Potassium 4.8 mmol/L (3.5-5.1); Sodium 139 mmol/L (136-145); Troponin I High Sensitivity 14.8 pg/mL (4.0-76.1)
[2024-09-08 12:47] LABS: Bilirubin Urine NEGATIVE (NEGATIVE); Blood Urine NEGATIVE (NEGATIVE); Clarity Urine CLEAR (CLEAR); Color Urine LT. YELLOW (YELLOW); Glucose Urine UA >=1000 mg/dL (NEGATIVE); Ketones Urine NEGATIVE (NEGATIVE); Leukocyte Esterase Urine NEGATIVE (NEGATIVE); Nitrite Urine NEGATIVE (NEGATIVE); Protein Urine NEGATIVE (NEG/TRACE); Urobilinogen Urine 0.2 EU/dL (0.2-1.0)
[2024-09-08 13:04] LABS: Bacteria Urine NONE SEEN #/HPF (NONE SEEN); Cast Seen? NONE SEEN #/LPF (NONE SEEN); Crystals Seen? None Seen #/HPF (None Seen); Mucus Urine NONE SEEN (NONE SEEN); RBC Urine 0-2 #/HPF (0-2); Squamous Epithelial Cell Urine RARE #/LPF (NONE/RARE); WBC Urine 0-2 #/HPF (NONE SEEN)
[2024-09-08] MEDS: ACETAMINOPHEN 325 MG TABLET 650 MG PO (14:38)
[2024-09-08] MEDS: HYDRALAZINE HCL 20 MG/ML VIAL 10 MG IVP (14:38)
== END 2024-09-08 15:36 | disposition home or self-care (01) ==
PROVIDERS: Emergency Provider Emergency Medicine; PCP Family Medicine
DX: R41.82 Altered mental status, unspecified (principal); Z87.891 Personal history of nicotine dependence
CPT/HCPCS: 36415; 70450; 71045; 80048; 81001; 84484; 85025; 93005; 96374; 99285; J0360

== ENCOUNTER 2024-10-18 07:58 | Outpatient (OUT) | payer MEDICARE, SELFPAY ==
--- NOTE | 2024-10-18 07:57 | CA_ITS ---
Patient Name: NADIR HEREDIA MR#: [id number] : 1940 Exam Date: 10/18/2024 Ordering Doctor: DR CLARIBEL CISNEROS M.D. ECHOCARDIOGRAM REPORT PROCEDURE: CA ECHO DOPPLER COMPLETE INDICATIONS: Aortic valve stenosis COMPARISON: None. DESCRIPTION: COMPLETE ECHOCARDIOGRAM Real-time transthoracic echocardiography with 2D, M-mode, spectral and color flow Doppler performed. QUALITY: Technical quality was good. BSA 2.12 m2 LEFT VENTRICLE: Normal chamber size. Moderate to severe concentric left ventricular hypertrophy. Global left ventricular systolic function is normal. LV EF: Estimated left ventricular ejection fraction is 55-60%. DIASTOLIC: Not adequately assessed due to heart rhythm. ATRIAL SEPTUM: LEFT ATRIUM: Severe dilatation. RIGHT ATRIUM: Severe dilatation. RIGHT VENTRICLE: Mild dilatation. Normal right ventricular systolic function. TRICUSPID VALVE: Normal mobility and thickness. No stenosis with mild regurgitation. Severe pulmonary hypertension. RVSP 64 mmHg MITRAL VALVE: Normal mobility and thickness. No evidence of mitral valve stenosis. Mild mitral annular calcification. Mild mitral regurgitation. AORTIC VALVE: Normal trileaflet appearance. Heavily calcified aortic valve. Moderately diminished mobility. Doppler velocity suggest moderate aortic valve stenosis. DVI 0.32, MELY 1.1 cm2, Vmax 2.97 m/s, mean gradient 19 mmHg. Mild aortic regurgitation. AORTIC ROOT: Mildly dilated. Measuring 4.1 cm, ascending aorta measures 3.4 cm. PULMONIC VALVE: Normal thickness and mobility. No stenosis. Mild regurgitation. PERICARDIUM: Moderate pericardial effusion. Moderate circumflex pericardial effusion with no echocardiographic signs of tamponade. IVC: Moderate dilatation measuring 2.5 cm with partial collapse. PLEURA: CONCLUSION: 1. Moderate to severe concentric left ventricular hypertrophy with normal systolic function. LVEF is estimated at 55 to 60%. 2. Mildly dilated right ventricle with normal systolic function. 3. Severe biatrial dilatation. 4. Moderate aortic valve stenosis. The aortic valve appears heavily calcified. 5. Mild aortic, mitral, tricuspid and pulmonic regurgitation. 6. Severely elevated right-sided pressures. RVSP is 64 mmHg. 7. Moderate circumferential pericardial effusion without echocardiographic signs of tamponade. Adult Echocardiography Procedure Report Left Ventricle LVEDD (3.7 - 5.6 cm): 4.09 cm LVESD (2.2 - 4.0 cm): 2.69 cm LVIVS thickness (0.6 - 1.2 cm): 1.62 cm LVPW thickness (0.5 - 1.0 cm): 1.85 cm e': 0.06 m/s E - e': 15.84 LVOT Max Gradient: 3.69 mm[Hg] LVOT Area (cm2): 0.96 m/s Peak Velocity (LVOT): 0.96 m/s Mean Velocity (LVOT): 0.69 m/s LVOT Diameter 2.08 cm Left Ventricular Ejection Fraction: 55-60 % Left Atrium LA Volume Index (2D A2C): 88.98 ml/m2 Left Atrium Systolic Dimension: 6.15 cm Mitral Valve MV E to A Ratio: 81.18 Mitral Valve A-Wave Peak Velocity: 0.01 m/s Mitral Valve E-Wave Peak Velocity: 0.92 m/s Right Ventricle RV Internal Diastolic Dimension: 4.38 cm Aorta AO Root Diam: 4.14 cm Ascending Ao Diam: 3.45 cm Aortic Valve AoV Area (Peak Kyle): 1.20 cm2, 1.10 cm2 AoV Area (VTI): 1.42 cm2, 1.31 cm2 Peak Velocity(Antegrade Flow): 2.97 m/s, 2.49 m/s, 2.68 m/s Peak Gradient(Antegrade Flow): 35.25 mm[Hg], 24.82 mm[Hg], 28.67 mm[Hg] Mean Velocity(Antegrade Flow): 2.03 m/s, 1.76 m/s, 1.90 m/s Mean Gradient(Antegrade Flow): 18.75 mm[Hg], 13.91 mm[Hg], 16.17 mm[Hg] Velocity Time Integral: 64.15 cm, 52.78 cm, 60.06 cm Tricuspid Valve Peak Velocity (Regurgitant Flow): 2.24 m/s, 3.37 m/s, 3.51 m/s Pulmonic Valve Mean Gradient: 2.22 mm[Hg], 2.19 mm[Hg] Mean Velocity: 0.71 m/s, 0.71 m/s Peak Velocity: 0.92 m/s, 0.87 m/s Peak Gradient: 3.53 mm[Hg], 3.24 mm[Hg], 3.03 mm[Hg] Right Atrium Right Atrium Systolic Pressure: 145.35 ml, 145.35 ml Dictated by: Claribel Cisneros M.D. on 10/18/2024 at 14:13 Approved by: Claribel Cisneros M.D. on 10/18/2024 at 14:25
--- OUTSIDE RECORDS SUMMARY | 2024-10-18 08:03 | XMS_ITS | CCD ---
Author Organization [facility] Care Team Providers Care Price Accuracy Supervisor Name Role Phone PHYSICIAN, DEFAULT Admitting Unavailable PHYSICIAN, DEFAULT Attending Unavailable PJ YOUSSEF Primary Care Unavailable jP Youssef Primary Care Physician JANETY ., DR ARAUJO Primary Care Unavailable HOY ., DR ARAUJO Consulting Unavailable HOY ., DR ARAUJO Attending Unavailable HOY ., DR ARAUJO Admitting Unavailable ZIEBER, DR CLOVER Zimmer Consulting Unavailable VENETIE, DR CRAMER Consulting Unavailable HOY ., DR ARAUJO Primary Care Unavailable VENETIE, DR CRAMER Attending Unavailable VENETIE, DR CRAMER Admitting Unavailable VENETIE, DR CRAMER Consulting Unavailable HOY ., DR ARAUJO Primary Care Unavailable VENETIE, DR CRAMER Attending Unavailable VENETIE, DR CRAMER Admitting Unavailable HOY ., DR ARAUJO Consulting Unavailable HOY ., DR ARAUJO Primary Care Unavailable HOY ., DR ARAUJO Attending Unavailable HOY ., DR ARAUJO Admitting Unavailable VENETIE, DR CRAMER Consulting Unavailable HOY ., DR ARAUJO Primary Care Unavailable VENETIE, DR CRAMER Attending Unavailable VENETIE, DR CRAMER Admitting Unavailable HOY ., DR [...] FONSECA Consulting Unavailable HARLEY, MYNOR Consulting Unavailable Reymundo, Yefri Consulting Unavailable GARCIA, FRANCISCO Consulting Unavailable PREETI ROBERTS Consulting Unavailable RUTHIE LINDA Attending Unavailable JEFF REYES Attending Unavailable MOUKARBEL, CLARIBEL Attending Unavailable MOUKARBEL, CLARIBEL Attending Unavailable MOUKARBEL, CLARIBEL Attending Unavailable MOUKARBEL, CLARIBEL Attending Unavailable DANA APARICIO Attending Unavailable CLARIBEL CISNEROS Referring Unavailable Pj Youssef MD Primary Care Provider [phone] BLAISE CHICAS Attending Unavailable BARRIE MONTOYA Attending Unavailable BLAISE CHICAS Attending Unavailable BLAISE CHICAS Attending Unavailable AVIVA, BLAISE Marroquin Attending Unavailable BLAISE CHICAS Attending Unavailable BLAISE CHICAS Attending Unavailable MICHAELLE, BARRIE Gil Attending Unavailable BLAISE CHICAS Attending Unavailable PETITTIRODNEY Attending Unavailable BLAISE CHICAS Attending Unavailable NKANSAH-AMANKRA, MARQUIS Attending Unavail able NKANSAH-AMANKRA, MARQUIS Admitting Unavail able NKANSAH-AMANKRA, MARQUIS Attending Unavail able NKANSAH-AMANKRA, MARQUIS Referring Unavail able NKANSAH-AMANKRA, MARQUIS Attending Unavail able Nereyda Gomez Attending Unavailable Nereyda Gomez Attending Unavailable Nereyda Gomez Attending Unavailable Allergies Allergy Classification Reported Allergen(s) Allergy Type Date of Onset Reaction(s) Facility (16 sources) Aminolevulinic Acid; Translations: [aminolevulinic acid] Drug Allergy 11-04-20 13 Unknown [facility] Repository (1 source) NITRO PATCH; Translations: [NITRO PATCH] Propensity to adverse reactions (disorder) 03-18-20 12 [facility] Repository (14 sources) Contrast media; Translations: [Contrast Dye] Drug allergy Unknown (qualifier value) [facility] (20 sources) Hmg-Coa Reductase Inhibitors (Statins); Translations: [statins] Allergy to substance 08-24-20 23 Unknown [facility] (20 sources) Nitroglycerin; Translations: [nitroglycerin] Drug Allergy 02-23-20 22 Unknown (qualifier value) [facility] (2 sources) black walnut pollen extract; Translations: [[id number] REDUCTASE INHIBITORS] Drug Allergy 04-21-20 17 [facility] Repository (1 source) Iodine (And Iodine Containting Drugs) Drug allergy (disorder) 05-28-20 16 [facility] Repository (8 sources) IODINATED CONTRAST MEDIA; Translations: [IODINATED CONTRAST MEDIA] Propensity to adverse reactions to drug (disorder) 07-17-20 [facility] Repository (7 sources) Nitroglycerin Allergy to substance 02-23-20 [facility] (1 source) Aminolevulinic Acid; Translations: [aminolevulinic acid] Drug Allergy 11-04-20 13 [facility] Repository (1 source) Nitroglycerin; Translations: [Nitroglycerin Patch] Drug Allergy [facility] Repository Medications Current Medications Medication Drug Class(es) Dates Sig (Normalized) Sig (Original) acyclovir 400 mg oral tablet (20 sources) Herpesvirus Nucleoside Analog DNA Polymerase Inhibitor, Herpes Simplex Virus Nucleoside Analog DNA Polymerase Inhibitor, Herpes Zoster Virus Nucleoside Analog DNA Polymerase Inhibitor Start: 01-09-2019 take 400 mg by mouth twice daily acyclovir 400 mg, Oral, BID, Refills(s) 0, Infection or prophylaxis for antibiotics Start Date: 01/09/19 Status: Ordered alogliptin 25 mg oral tablet (7 sources) Start: 11-12-2022 take 1 tablet by mouth in the morning alogliptin (Nesina) 25 MG tablet Take 1 tablet by mouth in the morning. 11/12/2022 Active ALPRAZolam 0.25 mg oral tablet (7 sources) Benzodiazepine ALPRAZolam (Xanax) 0.25 MG tablet every 12 (twelve) hours. Active apixaban 2.5 mg oral tablet (20 sources) Factor Xa Inhibitor Start: 01-09-2019 take [...] hours. Active aspirin 81 mg oral tablet (20 sources) Platelet Aggregation Inhibitor, Nonsteroidal Anti-inflammatory Drug Start: 01-09-2019 take 81 mg by mouth once daily aspirin 81 mg, Oral, Daily, Refills(s) 0, Prophylaxis Start Date: 01/09/19 Status: Ordered take 1 tablet by mouth in the mo rning aspirin 81 MG EC tablet Take 1 tablet by mouth in the morning. Active B-Complex tablet (7 sources) B-Complex tablet as directed Orally Active bifidobacterium infantis 4 mg oral capsule (7 sources) Start: 06-10-2023 End: 09-08-2023 take 1 capsule by mouth once daily Align 4 mg oral capsule 4 mg = 1 cap(s), Oral, Daily, Take after completing the Antibiotics course, X 90 day(s), # 90 cap(s), Refills(s) 0, Pharmacy: [facility]/pharmacy #[id number], 185, cm, 06/10/23 10:45:00 EDT, Height/Length Dosing, 97, kg, 06/10/23 10:45:00 EDT, Weight Dosing Start Date: 06/10/23 Stop Date: 09/08/23 Status: Ordered Start: 08-28-2020 [facility] Align 4 mg oral capsule 4 mg = 1 cap(s), Oral, Daily, Take after completing the Antibiotics course, # 28 cap(s), Refills(s) 0, Pharmacy: [facility]/pharmacy #[id number], 185, cm, 08/28/20 12:05:00 EDT, Height/Length Dosing, 103.7, kg, 08/28/20 12:05:00 EDT, Weight Dosing Start Date: 08/28/20 Status: Ordered Symbicort (13 sources) Corticosteroid, beta2-Adrenergic Agonist Start: 01-09-2019 Symbicort 80-4.5 mcg/actuation, Inhalation, BID, Refill(s) 0, COPD Start Date: 01/09/19 Status: Ordered cholecalciferol 0.025 mg oral tablet (7 sources) Vitamin D cholecalciferol (Vitamin D-[address]) 25 MCG (1000 UT) tablet Take 2,000 Units by mouth in the morning. Active ciprofloxacin 500 mg oral tablet (1 source) Quinolone Antimicrobial Start: 08-11-2024 take 1 tablet by mouth twice daily Cipro 500 mg Tab 500 mg = 1 tab(s), Oral, BID, Start 3 days prior to procedure., # 6 tab(s), Refills(s) 0, Pharmacy: [facility]/pharmacy #[id number], 185, cm, 08/08/24 10:28:00 EDT, Height/Length Dosing, 91, kg, 08/08/24 10:28:00 EDT, Weight Dosing Start Date: 08/11/24 Status: Ordered cloNIDine hydrochloride 0.1 mg oral tablet (20 sources) Central alpha-2 Adrenergic Agonist Start: 01-09-2019 take 0.1 mg by mouth twice daily clonidine 0.1 mg, Oral, BID, Refills(s) 0, High blood pressure Start Date: 01/09/19 Status: Ordered dicyclomine hydrochloride 10 mg oral tablet (20 sources) Anticholinergic Start: 01-09-2019 take 10 mg by mouth twice daily dicyclomine 10 mg, Oral, BID, Refills(s) 0, Spasm Start Date: 01/09/19 Status: Ordered take 1 capsule by mouth once jazzy ly dicyclomine (Bentyl) 10 MG capsule Take 1 capsule every day by oral route. Active DULoxetine 20 mg delayed release oral capsule (7 sources) Serotonin and Norepinephrine Reuptake Inhibitor Start: 08-01-2024 End: 01-28-2025 take 1 capsule by mouth at bedtime DULoxetine (Cymbalta) [address] capsule Indications: Neurogenic pain Take 1 capsule (20 mg) by mouth at bedtime 90 capsule 1 08/01/2024 01/28/2025 Active empagliflozin 25 mg oral tablet (20 sources) Sodium-Glucose Cotransporter 2 Inhibitor Start: 11-12-2022 [...] Start Date: 01/09/19 Status: Ordered ferrous sulfate (20 sources) Start: 01-09-2019 ferrous sulfat e 325 mg, BID, Refills(s) 0, Prophylaxis Start Date: 01/09/19 Status: Ordered take 1 tablet by mouth in the mo rning ferrous sulfate 325 (65 Fe) MG tablet Take 1 tablet by mouth in the morning and 1 tablet before bedtime. Active furosemide 80 mg oral tablet (20 sources) Loop Diuretic Start: 08-08-2024 take 1 [...] Status: Ordered gabapentin 600 mg oral tablet (13 sources) Anti-epileptic Agent Start: 01-09-2019 gabapenti n 600 mg, Oral, qNOON, Refills(s) 0, Neuropathy Start Date: 01/09/19 Status: Ordered glimepiride 2 mg oral tablet (20 sources) Sulfonylurea Start: 01-09-2019 take 2 mg by mouth once daily glimepiride 2 mg, Oral, Daily, Refills(s) 0, High blood sugar Start Date: 01/09/19 Status: Ordered take 1 tablet by mouth in the mo rning glimepiride (Amaryl) 4 MG tablet Take 1 tablet by mouth in the morning and 1 tablet before bedtime. Active hydrALAZINE hydrochloride 100 mg oral tablet (13 sources) Arteriolar Vasodilator Start: 01-09-2019 take 100 mg by mouth twice daily hydrALAZINE 100 mg, Oral, BID, Refills(s) 0, High blood pressure Start Date: 01/09/19 Status: Ordered Labetalol (20 sources) beta-Adrenergic Ora Start: 01-09-2019 take 150 [...] day Active levoFLOXacin 750 mg oral tablet (7 sources) Quinolone Antimicrobial Start: 07-23-2023 levoFLOXacin (Levaquin) 750 MG tablet 1 (one) time each day at the same time. 07/23/2023 Active magnesium oxide 500 mg oral tablet (13 sources) Start: 08-28-2020 take 500 mg by mouth once daily magnesium oxide 500 mg, Oral, Daily, Refills(s) 0, Prophylaxis Start Date: 08/28/20 Status: Ordered Start: 08-28-2020 magnesium oxid e Oral, Refills(s) 0 Start Date: 08/28/20 Status: Ordered metFORMIN hydrochloride 500 mg oral tablet (3 sources) Biguanide Start: 08-08-2024 metformin 500 mg Tab Refills(s) 0 Start Date: 08/08/24 Status: Ordered Start: 08-28-2020 take 1 mg by mouth once daily metformin 500 mg ER Tab mg tab(s), Oral, Daily, Refills(s) 0 Start Date: 08/28/20 Status: Ordered metoclopramide 5 mg oral tablet (20 sources) Dopamine-2 Receptor Antagonist Start: 01-09-2019 take 5 mg by mouth twice daily metoclopramide 5 mg, Oral, BID, Refills(s) 0, Control of stomach acid Start Date: 01/09/19 Status: Ordered metoclopramide ( Reglan) 5 MG tablet every 12 (twelve) hours Active mupirocin 20 mg/ml topical cream (2 sources) RNA Synthetase Inhibitor Antibacterial Start: 08-08-2024 mupirocin Top 2% Crm Refill(s) 0 Start Date: 08/08/24 Status: Ordered 24 hr NIFEdipine 90 mg extended release oral tablet (13 sources) Dihydropyridine Calcium Channel Ora Start: 01-09-2019 [...] Daily Prior to colonoscopy Per physician's instructions, [facility]/pharmacy #[id number], 185, cm, 03/31/22 9:58:00 EDT, Height/Length Dosing, 101, kg, 03/31/22 9:58:00 EDT, Weight Dosing Start Date: 03/31/22 Status: Ordered omeprazole 20 mg oral tablet (20 sources) Proton Pump Inhibitor Start: 01-09-2019 take [...] MOUTH EVERY DAY for 90 Active Klor-Con (20 sources) Start: 01-09-2019 Klor-Con 20 mE q, Oral, Daily, Refills(s) 0, Prophylaxis Start Date: 01/09/19 Status: Ordered take 1 tablet by mouth in the mo rning KLOR-CON 20 MEQ ER tablet Take 1 tablet by mouth in the morning and 1 tablet before bedtime. Active Pred Mild (20 sources) Corticosteroid Start: 01-09-2019 take 1 drop(s) [...] DIRECTED Active primidone 250 mg oral tablet (20 sources) Anti-epileptic Agent Start: 08-01-2024 primidone (Mysoline) 250 MG tablet Indications: Benign essential tremor 1/2 tab BID 90 tablet 1 08/01/2024 Active Start: 01-09-2019 take 1 tablet by joslyn th once daily at bedtime primidone 50 mg Tab 50 mg = 1 tab(s), Oral, Once a day (at bedtime), # 30 tab(s), Refills(s) 0, Seizure Start Date: 01/09/19 Status: Ordered SITagliptin 100 mg oral tablet (13 sources) Dipeptidyl Peptidase 4 Inhibitor Start: 01-09-2019 take 100 mg by mouth once daily Januvia 100 mg, Oral, Daily, Refill(s) 0, High blood sugar Start Date: 01/09/19 Status: Ordered Spiriva Respimat 1.25 mcg/inh inhalation aerosol (1 source) Start: 01-09-2019 Spiriva Respimat 1.25 mcg/inh inhalation aerosol 2 puff(s), Inhalation, Daily, Refill(s) 0, COPD Start Date: 01/09/19 Status: Ordered tamsulosin hydrochloride 0.4 mg oral capsule (20 sources) alpha-Adrenergic Ora Start: 01-09-2019 take 0.4 mg by mouth once daily Flomax 0.4 mg, Oral, Daily, Refills(s) 0, Urinary discomfort Start Date: 01/09/19 Status: Ordered 60 actuat tiotropium 0.17316 mg/actuat inhalation spray (12 sources) Anticholinergic Start: 01-09-2019 Spiriva Respimat 1.25 mcg/inh inhalation aerosol 2 puff(s), Inhalation, Daily, Refill(s) 0, COPD Start Date: 01/09/19 Status: Ordered Completed/Discontinued Medications Medication Drug Class(es) Dates Sig (Normalized) Sig (Original) betamethasone 0.5 mg/ml / clotrimazole 10 mg/ml topical cream (2 sources) Azole Antifungal, Corticosteroid Start: 08-08-2024 betamethasone-satnam trimazole Top 0.05%-1% Crm 15 gram Refill(s) 0 Start Date: 08/08/24 Status: Ordered psyllium 525 mg oral capsule (13 sources) Start: 08-28-2020 take 8 capsules by mouth once daily Metamucil 525 mg oral capsule 1,050 mg = 2 cap(s), Oral, Daily, Take 2 hour apart from the other medications with at least 8 ounces of water, # 160 cap(s), Refills(s) 1, Pharmacy: [facility]/pharmacy #[id number], 185, cm, 08/28/20 12:05:00 EDT, Height/Length Dosing, 103.7, kg, 08/28/20 12:05:00 EDT, Weight Dosing Start Date: 08/28/20 Status: Ordered Problems Active Problems Problem Classification Problem Date Documented Da te Episodic/Chronic Abdominal pain (1 source) Abdominal pain; Translations: [Unspecified abdominal pain] Onset: 10-01-2023 Episodic Asthma (13 sources) Asthma 08-28-2020 Chronic Cardiac dysrhythmias (1 [...] disease (2 sources) Atherosclerotic heart disease of lime coronary artery without angina pectoris; Translations: [Atherosclerotic heart disease of lime coronary artery without angina pectoris] Onset: 03-03-2024 Chronic Deficiency and other anemia (1 source) Anemia, unspecified; Translations: [ANEMIA UNSPECIFIED] Onset: 03-04-2023 Episodic Diabetes mellitus with complications (6 sources) Type 2 diabetes mellitus with hyperglycemia; Translations: [Type 2 diabetes mellitus with diabetic chronic kidney disease] Onset: 08-27-2022 Chronic Diabetes mellitus without complication (14 sources) Diabetes mellitus; Translations: [Type 2 diabetes mellitus without complications] Onset: 04-30-2022 08-28-2020 Chronic Disorders of lipid metabolism (4 sources) Hyperlipidemia, unspecified; Translations: [HYPERLIPIDEMIA UNSPECIFIED] Onset: 04-28-2022 Chronic Diverticulosis and diverticulitis (12 sources) Diverticula of intestine; Translations: [Diverticulosis of intestine, part unspecified, without perforation or abscess without bleeding] Onset: 06-09-2022 Chronic Essential hypertension (3 sources) Essential (primary) hypertension; Translations: [ESSENTIAL PRIMARY HYPERTENSION] Onset: 04-30-2022 Chronic Fluid and electrolyte disorders (5 sources) Hypo-osmolality and hyponatremia; Translations: [Hyperkalemia] Onset: 08-27-2022 Episodic Genitourinary symptoms and ill-defined conditions (3 sources) Retention of urine; Translations: [Retention of urine, unspecified] Onset: 08-08-2024 Episodic Heart valve disorders (7 sources) Nonrheumatic aortic (valve) stenosis; Translations: [Rheumatic tricuspid insufficiency] Onset: 07-01-2022 Chronic Hemorrhoids (12 sources) Hemorrhoids; Translations: [Unspecified hemorrhoids] Onset: 06-09-2022 Episodic Hyperplasia of prostate (3 sources) Benign prostatic hypertrophy with outflow obstruction; Translations: [Benign prostatic hyperplasia with lower urinary tract symptoms] Onset: 08-08-2024 Chronic Hypertension with complications and secondary hypertension (1 source) Hypertensive chronic kidney disease with stage 1 through stage 4 chronic kidney disease, or unspecified chronic kidney disease; Translations: [HTN CKD W/STAGE 1-4 CKD/UNS CKD] Onset: 08-27-2022 Chronic Inflammatory conditions of male genital organs (3 sources) Balanitis; 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] Onset: 08-08-2024 Chronic Mycoses (2 sources) Pain in toe; Translations: [Tinea unguium] 09-08-2024 Episodic Nausea and vomiting (6 sources) Nausea; Translations: [Nausea] Onset: 10-01-2023 Episodic Nutritional deficiencies (2 sources) Vitamin D deficiency, unspecified; Translations: [Vitamin D deficiency, unspecified] Onset: 06-07-2024 Chronic Other aftercare (1 source) Long-term current use of anticoagulant; Translations: [[facility]I (current) use of anticoagulants] Onset: 08-08-2024 Episodic Other and unspecified benign neoplasm (18 sources) History of polyp of colon; Translations: [Personal history of colonic polyps] Onset: 03-31-2022 Episodic Other and unspecified benign neoplasm (14 sources) Polyp of colon; Translations: [Polyp of colon] Onset: 06-09-2022 08-28-2020 Episodic Other and unspecified benign neoplasm (2 sources) Melanocytic nevus of trunk; Translations: [Melanocytic nevi of trunk] 08-24-2024 Episodic Other connective tissue disease (2 sources) Pain in right foot; Translations: [Pain in right foot] 09-08-2024 Episodic Other diseases of bladder and urethra (1 source) Detrusor overactivity; Translations: [Overactive bladder] Onset: 08-08-2024 Chronic Other diseases of bladder and urethra (2 sources) Overactive bladder 08-08-2024 Chronic Other diseases of kidney and ureters (1 source) Urinary tract obstruction; Translations: [Other obstructive and reflux uropathy] Onset: 09-25-2024 Episodic Other gastrointestinal disorders (13 sources) Chronic constipation with overflow 08-28-2020 Episodic Other gastrointestinal disorders (4 sources) Other fecal abnormalities; Translations: [OTHER FECAL ABNORMALITIES] Onset: 02-27-2023 Episodic Other gastrointestinal disorders (12 sources) Urgent desire for stool; Translations: [Fecal urgency] Onset: 04-13-2023 Episodic Other gastrointestinal disorders (2 sources) Abnormal feces; Translations: [Other fecal abnormalities] Onset: 04-13-2023 Episodic Other gastrointestinal disorders (10 sources) Loose stool 04-13-2023 Episodic Other gastrointestinal disorders (8 sources) Abdominal wind pain; Translations: [Gas pain] Onset: 06-10-2023 Episodic Other gastrointestinal disorders (2 sources) Constipation, unspecified; Translations: [Constipation, unspecified] Onset: 10-01-2023 Episodic Other gastrointestinal disorders (5 sources) Constipation 10-01-2023 Episodic Other hereditary and degenerative nervous system conditions (7 sources) Essential tremor; Translations: [Essential tremor] Onset: 01-07-2024 01-07-2024 Chronic Other male genital disorders (3 sources) Acquired buried penis; 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] Onset: 08-08-2024 Chronic Other nervous system disorders (7 sources) Polyneuropathy; Translations: [Polyneuropathy, unspecified] Onset: 01-07-2024 [...] 08-27-2022 Chronic Residual codes; unclassified (7 sources) Obstructive sleep apnea syndrome; Translations: [Obstructive sleep apnea (adult) (pediatric)] Onset: 01-11-2024 01-11-2024 Chronic Residual codes; unclassified (7 sources) Family history of malignant neoplasm of digestive organ; Translations: [Family history of malignant neoplasm of digestive organs] Onset: 03-31-2022 Episodic Residual codes; unclassified (13 sources) Family history of cancer of colon 03-31-2022 Episodic Unclassified (4 sources) CHRN KIDNEY DISEASE STG 3 UNSP; Translations: [CHRN KIDNEY DISEASE STG 3 UNSP] Onset: 08-27-2022 Unclassified (3 sources) CONTACT W/AND (SUSP) EXPOS COVID-19; Translations: [CONTACT W/AND (SUSP) EXPOS COVID-19] Onset: 06-19-2022 Unclassified (1 source) COUGH, UNSPECIFIED; Translations: [COUGH, UNSPECIFIED] Onset: 06-19-2022 Unclassified (5 sources) Finding of sensation of abdomen 10-01-2023 Unclassified (2 sources) Longstanding persistent atrial fibrillation; Translations: [Longstanding persistent atrial fibrillation] Onset: 03-03-2024 Unclassified (1 source) Other pericardial effusion (noninflammatory); Translations: [Other pericardial effusion (noninflammatory)] Onset: 10-05-2022 Unclassified (2 sources) Drug therapy finding 08-08-2024 Viral infection (2 sources) Verruca plantaris; Translations: [Plantar wart] 09-08-2024 Episodic Viral infection (3 sources) COVID-19; Translations: [COVID-19] [...] Onset: 04-30-2022 Episodic Other aftercare (1 source) [facility] (current) use of aspirin; Translations: [[facility] CURRENT USE OF ASPIRIN] Onset: 08-27-2022 Episodic Other aftercare (1 source) [facility] (current) use of anticoagulants; 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] Onset: 08-27-2022 Episodic Other aftercare (1 source) Other director long term care (current) drug therapy; Translations: [OTH [facility] CURRENT DRUG THERAPY] Onset: 08-27-2022 Episodic Other circulatory disease (1 source) Other specified symptoms and signs involving the circulatory and respiratory systems; Translations: [OTH SPEC SX SIGNS INVLV CIRC RS] Onset: 06-19-2022 Episodic Other connective tissue disease (7 sources) Spasm of cervical paraspinous muscle; Translations: [Other muscle spasm] Onset: 01-07-2024 01-07-2024 Episodic Other connective tissue disease (7 sources) Neurogenic pain; Translations: [Neuralgia and neuritis, unspecified] Onset: 01-07-2024 01-07-2024 Episodic Residual codes; unclassified (6 sources) Localized edema; Translations: [LOCALIZED EDEMA] Onset: 11-02-2022 Episodic Residual codes; unclassified (1 source) Edema, unspecified; Translations: [EDEMA UNSPECIFIED] Onset: 08-27-2022 Episodic Unclassified (7 sources) Parkinson's disease; Translations: [Parkinson disease] Onset: [...] Interpretation Reference Range Facility Ambulatory Visit Summaryon 1 12-02-2023 Ambulatory Visit Summary Ambulatory Visit Summary NADIR BETH :1940 Visit Date:10/02/2024 Ambulatory Visit Instructions Your Diagnosis BPH with urinary obstruction Incomplete bladder emptying Balanitis Acquired buried penis OAB (overactive bladder) Anticoagulated Your Care Team Attending Physician - MARQUIS CAMPBELL MD Primary Care Physician - Pj Youssef MD Referring Physician - MARQUIS CAMPBELL MD This Is Your Medications List NIFEdipine acyclovir apixaban (Eliquis) aspirin betamethasone-clotri mazole topical (betamethasone-clotr imazole Top 0.05%-1% Crm 15 gram) budesonide-formotero l (Symbicort) ciprofloxacin (Cipro 500 mg Tab) clonidine dicyclomine empagliflozin (Jardiance 10 mg oral [...] History of hernia repair, Tonsillectomy. Discharge Vitals Height 185 cm Height 73 in Weight 91 kg Weight 200.62 lb BMI 26.59 What to do next Scheduled Follow-Up Appointments Wednesday 11:00 AM EST Where: [facility] Wednesday 3:00 PM EST Where: [facility] You Need to Schedule the Following Appointments Follow Up with ADRIAN GUSTAFSON, ADAN COH When: Where: Medications What How Much When Why Instructions Unchanged acyclovir 400 Milligram By Mouth 2 times a day Unchanged apixaban (Eliquis) 2.5 Milligram By Mouth 2 times a day Unchanged aspirin 81 Milligram By Mouth Every day Unchanged betamethasone-clotri mazole topical (betamethasone-clotr imazole Top 0.05%-1% Crm 15 gram) Unchanged budesonide-formotero l (Symbicort) 80-4.5 mcg/actuation Inhalation 2 times a day Unchanged ciprofloxacin (Cipro 500 mg Tab) 1 Tablets By Mouth 2 times a day Start 3 days prior to procedure. Unchanged clonidine 0.1 Milligram By Mouth 2 times a day Unchanged dicyclomine 10 Milligram By Mouth 2 times a day Unchanged empagliflozin (Jardiance 10 mg oral tablet) 1 Tablets By Mouth Once a day (in the morning) Unchanged ezetimibe (Zetia) 10 Milligram By Mouth Every day Unchanged ferrous sulfate 325 Milligram 2 times a day Unchanged furosemide (Lasix 80 mg Tab) By Mouth Every day Unchanged furosemide (Lasix) 40 Milligram Unchanged gabapentin 600 Milligram By Mouth Every day at 12:00 noon Unchanged glimepiride 2 Milligram By Mouth Every day Unchanged hydrALAZINE 100 Milligram By Mouth 2 times a day Unchanged labetalol 150 Milligram By Mouth Every day Unchanged magnesium oxide 500 Milligram By Mouth Every day Unchanged metformin (metformin 500 mg Tab) Unchanged metoclopramide 5 Milligram By Mouth 2 times a day Unchanged mupirocin topical (mupirocin Top 2% Crm) Unchanged NIFEdipine 90 Milligram By Mouth 2 times a day Unchanged omeprazole 20 Milligram By Mouth 2 times a day Unchanged pioglitazone (pioglitazone 30 mg Tab) 1 Tablets By Mouth Every day Unchanged potassium chloride (Klor-Con) 20 Milliequivalent By Mouth Every day Unchanged prednisoLONE ophthalmic (Pred Mild) 1 Drops Both eyes 3 times a day Unchanged primidone (primidone 50 mg Tab) 1 Tablets By Mouth Once a day (at bedtime) Unchanged psyllium (Metamucil 525 mg oral capsule) 2 Capsules By Mouth Every day Chronic constipation with overflow Take 2 hour apart from the other medications with at least 8 ounces of water Unchanged sitagliptin (Januvia) 100 Milligram By Mouth Every day Unchanged tamsulosin (Flomax) 0.4 Milligram By Mouth Every day Unchanged tiotropium (Spiriva Respimat 1.25 mcg/ inh inhalation aerosol) 2 Puffs Inhalation Every day Allergies Contrast Dye (Unknown) Nitro TD Patch-A (Unknown) Nitroglycerin Patch (Unknown) aminolevulinic acid (Unknown) statins (Unknown) Problems Ongoing - Any problem that you are currently receiving treatment for. Abdominal cramping Acquired buried penis Anticoagulated Asthma Balanitis BPH with urinary obstruction Chronic constipation with overflow Colon polyps Constipation Diabetes Diverticulosis Family history of colon cancer Fecal urgency Gas pain Hemorrhoids History of colon polyps Incomplete bladder emptying Nausea OAB (overactive bladder) Historical - Any problem that you are no longer receiving treatment for. Loose stools Patient Survey Yo (more content not included)... Normal [facility] Ambulatory Visit Summary Ambulatory Visit Summary NADIR BETH :1940 Visit Date:10/02/2024 Ambulatory Visit Instructions Your Diagnosis BPH with urinary obstruction Incomplete bladder emptying Balanitis Acquired buried penis OAB (overactive bladder) Anticoagulated Your Care Team Attending Physician - ADRIAN GUSTAFSON, MARQUIS Primary Care Physician - HoPj preston MD Referring Physician - MARQUIS CAMPBELL MD This Is Your Medications List NIFEdipine acyclovir apixaban (Eliquis) aspirin betamethasone-clotri mazole topical (betamethasone-clotr imazole Top 0.05%-1% Crm 15 gram) budesonide-formotero l (Symbicort) ciprofloxacin (Cipro 500 mg Tab) clonidine dicyclomine empagliflozin (Jardiance 10 mg oral [...] History of hernia repair, Tonsillectomy. Discharge Vitals Height 185 cm Height 73 in Weight 91 kg Weight 200.62 lb BMI 26.59 What to do next You Need to Schedule the Following Appointments Follow Up with ADRIAN GUSTAFSON, ADAN CHO When: Where: Medications What How Much When Why Instructions Unchanged acyclovir 400 Milligram By Mouth 2 times a day Unchanged apixaban (Eliquis) 2.5 Milligram By Mouth 2 times a day Unchanged aspirin 81 Milligram By Mouth Every day Unchanged betamethasone-clotri mazole topical (betamethasone-clotr imazole Top 0.05%-1% Crm 15 gram) Unchanged budesonide-formotero l (Symbicort) 80-4.5 mcg/actuation Inhalation 2 times a day Unchanged ciprofloxacin (Cipro 500 mg Tab) 1 Tablets By Mouth 2 times a day Start 3 days prior to procedure. Unchanged clonidine 0.1 Milligram By Mouth 2 times a day Unchanged dicyclomine 10 Milligram By Mouth 2 times a day Unchanged empagliflozin (Jardiance 10 mg oral tablet) 1 Tablets By Mouth Once a day (in the morning) Unchanged ezetimibe (Zetia) 10 Milligram By Mouth Every day Unchanged ferrous sulfate 325 Milligram 2 times a day Unchanged furosemide (Lasix 80 mg Tab) By Mouth Every day Unchanged furosemide (Lasix) 40 Milligram Unchanged gabapentin 600 Milligram By Mouth Every day at 12:00 noon Unchanged glimepiride 2 Milligram By Mouth Every day Unchanged hydrALAZINE 100 Milligram By Mouth 2 times a day Unchanged labetalol 150 Milligram By Mouth Every day Unchanged magnesium oxide 500 Milligram By Mouth Every day Unchanged metformin (metformin 500 mg Tab) Unchanged metoclopramide 5 Milligram By Mouth 2 times a day Unchanged mupirocin topical (mupirocin Top 2% Crm) Unchanged NIFEdipine 90 Milligram By Mouth 2 times a day Unchanged omeprazole 20 Milligram By Mouth 2 times a day Unchanged pioglitazone (pioglitazone 30 mg Tab) 1 Tablets By Mouth Every day Unchanged potassium chloride (Klor-Con) 20 Milliequivalent By Mouth Every day Unchanged prednisoLONE ophthalmic (Pred Mild) 1 Drops Both eyes 3 times a day Unchanged primidone (primidone 50 mg Tab) 1 Tablets By Mouth Once a day (at bedtime) Unchanged psyllium (Metamucil 525 mg oral capsule) 2 Capsules By Mouth Every day Chronic constipation with overflow Take 2 hour apart from the other medications with at least 8 ounces of water Unchanged sitagliptin (Januvia) 100 Milligram By Mouth Every day Unchanged tamsulosin (Flomax) 0.4 Milligram By Mouth Every day Unchanged tiotropium (Spiriva Respimat 1.25 mcg/ inh inhalation aerosol) 2 Puffs Inhalation Every day Allergies Contrast Dye (Unknown) Nitro TD Patch-A (Unknown) Nitroglycerin Patch (Unknown) aminolevulinic acid (Unknown) statins (Unknown) Problems Ongoing - Any problem that you are currently receiving treatment for. Abdominal cramping Acquired buried penis Anticoagulated Asthma Balanitis BPH with urinary obstruction Chronic constipation with overflow Colon polyps Constipation Diabetes Diverticulosis Family history of colon cancer Fecal urgency Gas pain Hemorrhoids History of colon polyps Incomplete bladder emptying Nausea OAB (overactive bladder) Historical - Any problem that you are no longer receiving treatment for. Loose stools Patient Survey You may receive a survey via text or e-mail asking about your office visit. Please share your experience with us by completing your survey. We appreciate your feedback and thank you for choosing us for (more content not included)... Normal [facility] Urology Office/Clinic Noteon 10-02-2024 Urology Office/Clinic Note Urology Office/Clinic Note Chief Complaint 1-2 week f/u HPI Staff 84 yr old male here today for 1-2 week f/u to cysto/TRUS for sizing. Pt here to discuss UroLift procedure. Taking Flomax 0.4mg qd. History of Present Illness Tests reviewed: reviewed UA. I have reviewed the previous health record information and history for this patient from Dr. Neely I have reviewed and verified the staff HPI to be accurate for this encounter. There have been no associated fever, chills, flank pain, or blood in the urine. Denies any urinary infections since last encounter. Review of Systems PHQ Score Initial Depression Screen Score: 0 SCORE ROS - Provider Constitutional: denies weight loss, denies hot flashes. Eyes: denies eye problems. Gastrointestinal: denies nausea, denies vomiting. Cardiovascular: denies chest pain or angina. Integumentary: no dryness Musculoskeletal: denies musculoskeletal symptoms. ENMT: denies otolaryngeal symptoms. Respiratory: no shortness of breath. Heme/Lymph: denies easy bleeding tendency, denies easy bruising tendency. Psychiatric: no confusion, no anxiety. Genitourinary: See HPI. Physical Exam Vitals & Measurements HT: 73 in HT: 185 cm WT: 91 kg WT: 200.62 lb BMI: 26.59 General Appearance: alert, no distress, well nourished, well developed male. Assessment/Plan Pt accompanied by and daughter today. Poor historian. T2DM, taking Jardiance, daughter states latest A1c is >6 but less than 10. Hx of cholecystectomy. 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 Family hx of colon CA. SHIM2 (3) Not a priority. Portions of this record may have been created with voice recognition artificial intelligence software, specifically Ortho-tag, Eqlim and or PinPay. Substitutions may have occurred due to the inherent limitations of voice recognition and artificial intelligence software. 1. BPH with urinary obstruction (N40.1: Benign prostatic hyperplasia with lower urinary tract symptoms) PSA: 03/01/19 - 3.43 03/17/24 - 2.6 & 32.3% LATRELL 08/08/24: ~ 60g, no nodules, no bogginess. IPSS 23 QoL 6 (20) Taking Flomax 0.4mg qd which he has been on for years. S/p cysto/TRUS for sizing 09/25/24 - 4 cm prostatic urethral length with bilobar hypertrophy kissing lobes and a small protuberant median lobe. Moderate trabeculations with no bladder stone or tumors noted. Prostate volume 64.1 cc. Voiding every 30 minutes and getting up multiple times per night. Given cysto findings, prostate volume and pt's age a UroLift is recommended. Discussed risks and benefits of procedure. Pt wishes to proceed. -Cipro 500mg bid start the day prior, [place] 325-5mg #2 q6hrs as needed for pain, Valium 10mg #1 take 30 min prior, Pyridium 100mg tid prn sent to pharmacy -Will schedule UroLift. The procedural risks, benefits, details, and treatment alternatives have been discussed with the patient. These include bleeding, infection, continued problems urinating, increased frequency with urgency during the healing process, painful urination, need for indwelling catheter after the procedure, and the need for additional procedures in the future, among others. The risk of penile erection problems and urinary leakage is less after this procedure than some others, but could still occur. Full informed consent has been obtained. Will order Local anesthesia. 2. Incomplete bladder emptying (R33.9: Retention of urine, unspecified) PVR: 08/08/24 - 472 cc See #1. 3. 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) Pt presented to [facility] ER 08/06/24 with redness on the shaft of his penis. UA was negative for UTI, neg micro. Labs ~Cr 1.56, eGFR 43 Discharged home with Lotrisone and Bactroban cream. Recent neg micro at the ER. Denies UTIs or STIs. Pt states he has been circumcised. Denies discharge. Physical exam 08/08/24 - urethral meatus is open, mild erythematous area at 12 o'clock position of glans penis. -Cont symptomatic monitoring 4. 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 -Behavioral modifications 5. OAB (overactive bladder) (N32.81: Overactive bladder) See #1 and 2. Likely exacerbated by incomplete emptying and Lasix. -Dm control 6. 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 Hx of cardioversion. Elevated risk for periop complications. Based on patient's age, multiple medical comorbidities and his prostate size we discussed extensively that he will benefit most likely from a UroLift procedure. He is amenable to (more content not included)... Normal [facility] Comment on above: Result Comment: Elec tronically Signed By: MARQUIS CAMPBELL MD\.br\Date and Time Signed: 10/02/24 11:43 EST\.br\Electronically Co-Signed By: Roxy Gatica\.br\Date and Time Co-Signed: 10/02/24 11:21 EST\.br\Electronically Co-Signed By: Roxy Gatica\.br\Date and Time Co-Signed: 10/02/24 11:22 EST\.br\Electronically Co-Signed By: Roxy Gatica\.br\Date and Time Co-Signed: 10/02/24 11:23 EST Inpatient Patient Summaryon 09-25-2024 Inpatient Patient Summary Inpatient Patient Summary [place] [id number] Clinical Summary Person Information Name: NADIR BETH Age: 84 Years : 1940 Sex: Male PCP: Pj Youssef MD Marital Status: Race: White Ethnicity: Non- or Language: Frisian Visit Id: Visit Reason: ENLARGED PROSTATE WITH URINARY OBSTRUCTION, INCOMPLETE BLADDER EMPTYING Speciality: Acuity: Enc Type: Outpatient Med Service: Surgery Arrival: 09/25/2024 11:42:27 Discharge: Dispo Type: Address: [address] [facility] [id number] Provider Notes: Diagnosis: Problems Active BPH with urinary obstruction OAB (overactive bladder) Acquired buried penis Incomplete bladder emptying Anticoagulated Balanitis Nausea Abdominal cramping Constipation Gas pain Fecal urgency Hemorrhoids Diverticulosis Colon polyps Family history of colon cancer History of colon polyps Chronic constipation with overflow Asthma Diabetes Smoking Status: Functional Status: Sensory Deficits: History of Falls: Mobility Assistance Prior to Admission: ADLs: Current Level of Assistance for Self-Care/Mobility: Cognitive Status: Allergies Contrast Dye (Unknown) Nitroglycerin Patch (Unknown) statins (Unknown) Nitro TD Patch-A (Unknown) aminolevulinic acid (Unknown) Laboratory or Other Results This Visit (last charted value for your 09/25/2024 visit) No Laboratory or Other Results This Visit Measurements: Height: Weight: Blood Pressure: Not Valued / Not Valued BMI: Procedures No Procedures Documented Immunizations No Immunizations Documented This Visit Final Med List: acyclovir 400 Milligram By Mouth 2 times a day. apixaban (Eliquis) 2.5 Milligram By Mouth 2 times a day. aspirin 81 Milligram By Mouth every day. betamethasone-clotri mazole topical (betamethasone-clotr imazole Top 0.05%-1% Crm 15 gram) budesonide-formotero l (Symbicort) 80-4.5 mcg/actuation Inhalation 2 times a day. ciprofloxacin (Cipro 500 mg Tab) 1 Tablets By Mouth 2 times a day. Start 3 days prior to procedure.. Refills: 0. clonidine 0.1 Milligram By Mouth 2 times a day. dicyclomine 10 Milligram By Mouth 2 times a day. empagliflozin (Jardiance 10 mg oral tablet) 1 Tablets By Mouth once a day (in the morning). ezetimibe (Zetia) 10 Milligram By Mouth every day. ferrous sulfate 325 Milligram 2 times a day. furosemide (Lasix 80 mg Tab) By Mouth every day. furosemide (Lasix) 40 Milligram. gabapentin 600 Milligram By Mouth every day at 12:00 noon. glimepiride 2 Milligram By Mouth every day. hydrALAZINE 100 Milligram By Mouth 2 times a day. labetalol 150 Milligram By Mouth every day. magnesium oxide 500 Milligram By Mouth every day. metformin (metformin 500 mg Tab) metoclopramide 5 Milligram By Mouth 2 times a day. mupirocin topical (mupirocin Top 2% Crm) NIFEdipine 90 Milligram By Mouth 2 times a day. omeprazole 20 Milligram By Mouth 2 times a day. pioglitazone (pioglitazone 30 mg Tab) 1 Tablets By Mouth every day. potassium chloride (Klor-Con) 20 Milliequivalent By Mouth every day. prednisoLONE ophthalmic (Pred Mild) 1 Drops Both eyes 3 times a day. primidone (primidone 50 mg Tab) 1 Tablets By Mouth once a day (at bedtime). psyllium (Metamucil 525 mg oral capsule) 2 Capsules By Mouth every day. Take 2 hour apart from the other medications with at least 8 ounces of water. Refills: 1. sitagliptin (Januvia) 100 Milligram By Mouth every day. tamsulosin (Flomax) 0.4 Milligram By Mouth every day. tiotropium (Spiriva Respimat 1.25 mcg/inh inhalation aerosol) 2 Puffs Inhalation every day. Care Team Members: Attending Physician: MARQUIS CAMPBELL MD Consulting Physician: Referring Physician: MARQUIS CAMPBELL MD Follow up: With: Address: When: MARQUIS CAMPBELL [address] [place] [address] [phone] Business (1) Comments: Follow-up in the office in 2 weeks to discuss next plan With: Address: When: MARQUIS CAMPBELL [address] [place] [address] [phone] Business (1) Patient Education Information: Benign Prostatic Hyperplasia Normal [facility] Main OR Intraoperative Recor don 09-25-2024 Main OR Intraoperative Record Main OR Intraoperative Record IntraOp Document Type FTURO Summary Primary Physician: MARQUIS CAMPBELL MD Finalized Date/Time: 09/25/24 13:23:58 Pt. Name: NADIR BETH /Sex: 1940 Male Med Rec #: [id number] Physician: MARQUIS CAMPBELL MD Financial #: [id number] Pt. Type: O Room/Bed: / Admit/Disch: 09/25/24 11:42:27 - Institution: Case Times FTURO Entry 1 Patient Times In Room 09/25/24 13:00:00 Out Room 09/25/24 13:20:00 Procedure Times Start 09/25/24 13:05:00 Stop 09/25/24 13:15:00 Anesthesia Times Last Modified By: Oliva Goel 09/25/24 13:23:52 Case Attendance FTURO Entry 1 Entry 2 Entry 3 Case Attendee ADRIAN GUSTAFSON, Oliva Goel Laura C KWABENA Role Performed Surgeon - Primary Heel Cover Splitter - Primary Scrub - Primary Time In 09/25/24 13:00:00 09/25/24 13:00:00 09/25/24 13:00:00 Time Out 09/25/24 13:20:00 09/25/24 13:20:00 09/25/24 13:20:00 Procedure PROSTATE TRANSRECTAL PROSTATE TRANSRECTAL PROSTATE TRANSRECTAL ULTRASOUND WITH BIO(.) ULTRASOUND WITH BIO(.) ULTRASOUND WITH BIO(.) Comments Last Modified By: Oliva Goel Kelsie E Burgderfer, Kelsie E 09/25/24 13:23:53 09/25/24 13:23:53 09/25/24 13:23:53 Surgical Procedures FTURO Entry 1 Procedure Description Procedure PROSTATE TRANSRECTAL Modifiers . ULTRASOUND WITH BIOPSY Surgeon Description CYSTO WITH TRUS FOR SIZING ONLY Primary Procedure Yes Primary Surgeon MARQUIS CAMPBELL MD Start 09/25/24 13:05:00 Stop 09/25/24 13:15:00 Anesthesia Type Local Surgical Service Urology Wound Class 2 - Clean-Contaminated Last Modified By: Oliva Goel 09/25/24 13:15:57 General Case Data FTURO Pre-Care Text: Classifies surgical wound, implements aseptic technique, initiates traffic control Entry 1 Case Information OR URO 1 FT Case Level None Wound Class 2 - Clean-Contaminated Specialty Urology Preop Diagnosis ENLARGED PROSTATE WITH Postop Same As Preop Yes URINARY OBSTRUCTION, INCOMPLETE BLADDER EMPTYING Postop Diagnosis ENLARGED PROSTATE WITH Outcomes Met? Yes URINARY OBSTRUCTION, INCOMPLETE BLADDER EMPTYING Last Modified By: Oliva Goel 09/25/24 13:04:36 Post-Care Text: The patient is free from signs and symptoms of infection EU IntraOp - FTURO Pre-Care Text: Implements protective measures prior to operative or invasive procedure, confirms identity before the operative or invasive procedure, verifies operative procedure, surgical site, and laterality Entry 1 EU Perioperative Protocols Procedure(s) PROSTATE TRANSRECTAL Patient Identity Birthday, ID Band ULTRASOUND WITH BIO(.) Verified (select at Check, Patient least 2): Participation Consents / H and P H&P, Surgery/Procedure Operative Site N/A Verified Consent Marking Verified Surgical Site Yes Laterality Verified n/a Verified Procedure Verified Yes Correct Patient Yes Position Verified Availability Equipment, Medication Time Out ADRIAN GUSTAFSON, Verified (If Participants Manasa CHO, Applicable) [place] Laura C Time Out Complete 09/25/24 13:04:00 Allergies Reviewed? Yes Allergies Reviewed Self/Patient With Body Position Supine Prep Area PENIS Prep Agents Betasept Skin. Condition Unable to Visualize Description N/A Additional None Specimens Comment N/A Specimens Collected Vitals - EU Blood Pressure 169/80 Pulse 103 bpm Respirations 18 br/min SPO2 92 % EBL 0 I&O - EU Total Intake 0 mL Total Output 0 mL Outcomes Met? Yes Last Modified By: Oliva Goel 09/25/24 13:10:38 Post-Care Text: The patient is free from signs and symptoms of injury caused by extraneous objects Sign Out FTURO Entry 1 Before Patient Leaves OR Nurse verbally Yes Nurse verbally n/a confirms with the confirms with the team the name of team that the procedure(s) instrument, sponge, recorded and needle counts are correct (or N/A) Nurse verbally n/a Nurse verbally Yes confirms with the confirms with the team how the team whether there specimen is labeled are any equipment (including patient problems to be name), if applicable addressed Sign Out Complete 09/25/24 13:15:00 Last Modified By: Oliva Goel 09/25/24 13:15:55 Case Comments Finalized By: Oliva Goel Document Signatures Signed By: Oliva Goel 09/25/24 13:23 Oliva Goel 09/25/24 13:23 Normal [facility] Main OR Preoperative Recordo n 09-25-2024 Main OR Preoperative Record Main OR Preoperative Record Holding Area Document Type FTURO Summary Primary Physician: MARQUIS CAMPBELL MD Finalized Date/Time: 09/25/24 13:04:51 Pt. Name: KIRIT NADIRCONNIE BorjaO.B./Sex: 1940 Male Med Rec #: [id number] Physician: MARQUIS CAMPBELL MD Financial #: [id number] Pt. Type: O Room/Bed: / Admit/Disch: 09/25/24 11:42:27 - Institution: Case Times Holding FTURO Pre-Care Text: Verifies consent for planned procedure, identifies individual values and wishes concerning care, includes family members in perioperative teaching Secures patient's records' belongings, and valuables, maintains patient's dignity and privacy, and maintains patient confidentiality Entry 1 In Holding 09/25/24 12:46:00 Outcomes Met? Yes Last Modified By: Preeti Kaur LPN 09/25/24 12:47:35 Post-Care Text: The patient participates in decisions affecting his or her perioperative plan of care The patient's right to privacy is maintained Surgery Checklist FTURO Entry 1 Patient Birthday, ID Band Procedure Surgical Consent, With Identification: Check, Patient Verification: Patient Participation NPO after Midnight: n/a Personal Items: Glasses Limitations: up ad jean pierre Complaints of Pain: No Skin Integrity Intact, [place], Warm, & Dry Vitals - EU Blood Pressure Pulse Respirations SPO2 Additional None RN Reviewed Yes Specimens Collected Last Modified By: Oliva Goel 09/25/24 13:04:50 Finalized By: Oliva Goel Document Signatures Signed By: Preeti Kaur LPN 09/25/24 12:49 Oliva Goel 09/25/24 13:04 [facility] Operative Reporton Operative Report Operative Report Patient: NADIR BETH Age: 84 years Sex: Male : 1940 Associated Diagnoses: None Author: MARQUIS CAMPBELL MD Procedure Indication for procedure: Patient is a 84-year-old male with multiple medical comorbidities who presented with difficulty emptying bladder. H&P was reviewed, informed consent was obtained, patient understood risk, benefits, alternatives of the procedure and wished to proceed. The plan was to do a cystoscopy, transient rectal ultrasound of the prostate for sizing of the prostate Operative detail: Patient was brought to the suite and placed in the supine position. He was then prepped and draped in normal sterile fashion. Timeout was performed confirming patient, procedure, side, all in the room agreed. We began by inserting a flexible cystoscope into the urethra meatus and advanced into the bladder. We noted that the patient had approximately a 4 cm prostatic urethral length with bilobar hypertrophy kissing lobes and a small protuberant median lobe. We then retroflexed in findings were as noted above. Patient did have moderate trabeculations with no bladder stone or tumors noted. The scope was then removed and patient was placed in the left lateral decubitus position and a transrectal probe was inserted into the rectum. We then mace scan and noted that the patient had a hypoechoic lesion in the right midline. Measurement of the prostate was taken and prostate was noted to be 64.1 cc. The probe was then removed. This concluded the procedure. Plan: Patient will follow-up with me in the office in 1 to 2 weeks to discuss next steps Impression and Plan Counseled: Family. [facility] Comment on above: Result Comment: Elec tronically Signed By: MARQUIS CAMPBELL MD\.br\Date and Time Signed: 09/25/24 13:27 EST Outpatient Surgery Discharge Instructionon 09-25-2024 Outpatient Surgery Discharge Instruction Outpatient Surgery Discharge Instruction [place] [id number] Patient Discharge Instructions PERSON INFORMATION Name: NADIR BETH Date of : 1940 Current Date: 09/25/2024 13:21:43 PHYSICIANS Admitting Physician: MARQUIS CAMPBELL MD Comment: Discharge Diagnosis: NADIR BETH has been given the following list of follow-up instructions, prescriptions, and patient education materials: IF UNABLE TO CONTACT YOUR PHYSICIAN AND YOU FEEL IT IS AN EMERGENCY, GO TO THE NEAREST EMERGENCY ROOM OR CALL 911 Follow up: With: Address: When: MARQUIS ADRIAN [address] [place] [address] [phone] HeyAnita (1) Comments: Follow-up in the office in 2 weeks to discuss next plan With: Address: When: MARQUIS ROALILIAN [address] [place] [address] [phone] HeyAnita (1) Comment: PATIENT EDUCATION INFORMATION Instructions: Benign Prostatic Hyperplasia Benign prostatic hyperplasia (BPH) is an enlarged prostate gland that is caused by the normal aging process. The prostate may get bigger as a man gets older. The condition is not caused by cancer. The prostate is a walnut-sized gland that is involved in the production of semen. It is located in front of the rectum and below the bladder. The bladder stores urine. The urethra carries stored urine out of the body. An enlarged prostate can press on the urethra. This can make it harder to pass urine. The buildup of urine in the bladder can cause infection. Back pressure and infection may progress to bladder damage and kidney (renal) failure. What are the causes? This condition is part of the normal aging process. However, not all men develop problems from this condition. If the prostate enlarges away from the urethra, urine flow will not be blocked. If it enlarges toward the urethra and compresses it, there will be problems passing urine. What increases the risk? This condition is more likely to develop in men older than 50 years. What are the signs or symptoms? Symptoms of this condition include: ??? Getting up often during the night to urinate. ??? Needing to urinate frequently during the day. ??? Difficulty starting urine flow. ??? Decrease in size and strength of your urine stream. ??? Leaking (dribbling) after urinating. ??? Inability to pass urine. This needs immediate treatment. ??? Inability to completely empty your bladder. ??? Pain when you pass urine. This is more common if there is also an infection. ??? Urinary tract infection (UTI). How is this diagnosed? This condition is diagnosed based on your medical history, a physical exam, and your symptoms. Tests will also be done, such as: ??? A post-void bladder scan. This measures any amount of urine that may remain in your bladder after you finish urinating. ??? A digital rectal exam. In a rectal exam, your health care provider checks your prostate by putting a lubricated, gloved finger into your rectum to feel the back of your prostate gland. This exam detects the size of your gland and any abnormal lumps or growths. ??? An exam of your urine (urinalysis). ??? A prostate specific antigen (PSA) screening. This is a blood test used to screen for prostate cancer. ??? An ultrasound. This test uses sound waves to electronically produce a picture of your prostate gland. Your health care provider may refer you to a specialist in kidney and prostate diseases (urologist). How is this treated? Once symptoms begin, your health care provider will monitor your condition (active surveillance or watchful waiting). Treatment for this condition will depend on the severity of your condition. Treatment may include: ??? Observation and yearly exams. This may be the only treatment needed if your condition and symptoms are mild. ??? Medicines to relieve your symptoms, including: ? Medicines to shrink the prostate. ? Medicines to relax the muscle of the prostate. ??? Surgery in severe cases. Surgery may include: ? Prostatectomy. In this procedure, the prostate tissue is removed completely through an open incision or with a laparoscope or robotics. ? Transurethral resection of the prostate (TURP). In this procedure, a tool is inserted through the opening at the tip of the penis (urethra). It is used to cut away tissue of the inner core of the prostate. The pieces are removed through the same opening of the penis. This removes the blockage. ? Transurethral incision (TUIP). In this procedure, small cuts are made in the prostate. This lessens the prostate's pressure on the urethra. ? Transurethral microwave thermotherapy (TUMT). This procedure uses microwaves to create heat. The heat destroys and removes a small amount of prostate tissue. ? Transurethral needle ablation (TUNA). This procedure uses radio frequen (more content not included)... 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 Normal [facility] Urology Office/Clinic Noteon 08-08-2024 Urology Office/Clinic Note Urology Office/Clinic Note Chief Complaint follow up to [facility] ER HPI Staff 84 year old male new patient follow up to [facility] 08/06/24 presented due to redness on [...] 1. 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) Pt presented to [facility] ER 08/06/24 with redness on the [...] urinary channel, (more content not included)... Normal [facility] Comment on above: Result Comment: Elec tronically Signed By: MARQUIS CAMPBELL MD\.br\Date and Time Signed: 08/08/24 11:05 EDT\.br\Electronically Co-Signed By: Roxy Gatica\.br\Date and Time Co-Signed: 08/08/24 10:46 EDT\.br\Electronically Co-Signed By: Roxy Gatica\.br\Date and Time Co-Signed: 08/08/24 10:53 EDT Office Visiton 07-05-2024 Follow-up visit [id number] KiritNadir L 1940 M Date Provider Department Center 07/05/2024 [facility] NE[facility]RO Comprehensiv Family History Problem Relation Age of Onset Coronary artery disease Father Family Status - Relation Status Age at Father Level of Service:99569 [place] OFFICE/OUTPATIENT ESTABLISHED MOD MDM 30 MIN Reason for Visit and Comments: Follow-up [[id number]] [facility] 3606-20-2024 36 Regarding echo result from 06/09/2024: MD [...] her he should have another echo at [facility] in Oct 2024, prior to his follow up with Dr. Cisneros in Nov 2024. She verbalized understanding. Echo order faxed to [facility]. [facility] 06-14-2024 36 Patients called and stating that dr. Linda told her to call and let him know that her husbands blood pressure is better and she would like a call back. [facility] 06-09-2024 36 Spoke with patient's Shanna and made sure she understood to increase labetalol per Dr. Linda. She also understands not to resume hydralazine. [facility] 06-07-2024 36 I'm Stephanie from Dr. Cisneros's office with Cardiology. Patient's daughter called and wanted to know if Dr. Linda had restarted patient's hydralazine- NOT hydroxyzine. I don't see in the note that it was restarted. Dr. Linda, or someone from his office- can you clarify this for me? Thanks so much. [facility] Follow-Upon 06-07-2024 Follow-Up [id number] Nadir Beth 1940 M Date Provider Department Center 06/07/2024 321-[facility] NE[facility] Comprehensiv Family History Problem Relation Age of Onset Coronary artery disease Father Family Status - Relation Status Age at Father Level of Service:88487 [place] OFFICE/OUTPATIENT ESTABLISHED MOD MDM 30 MIN () Reason for Visit and Comments: Follow-up [[id number]] [facility] Telephoneon 06-07-2024 Telephone [id number] Nadir Beth 1940 M Date Provider Department Center 06/07/2024 228Franc-IIRS [facility] NEPHRO Comprehensiv Family History Problem Relation Age of Onset Coronary artery disease Father Family Status - Relation Status Age at Father [facility] Office Visiton 06-05-2024 Follow-up visit [id number] Nadir Beth 1940 M Date Provider Department Center 06/05/2024 367-CLARIBEL CISNEROS [facility] Family History Problem Relation Age of Onset Coronary artery disease Father Family Status - Relation Status Age at Father Level of Service:23960 [place] OFFICE/OUTPATIENT ESTABLISHED MOD MDM 30 MIN [facility] 3605-17-2024 36 Faxed lab orders 05/17/24 [facility] 36on 05-15-2024 36 Patient states that he needs his blood work to go to [facility] before his appointment on 05/31/24. [facility] 3605-10-2024 36 LM on for patient or his to return my call. [facility] 3605-08-2024 36 Patient's called with concerns of elevated BP since hydralazine was stopped at last apt. She said sometimes it's very good - 110/60's and sometimes 152/70. He's scheduled to see you in a few weeks. Did you want to change anything? Please advise. Thanks. [facility] 3604-04-2024 36 Regarding blood work from 04/03/2024: MD Stephanie Kelley MA Stable renal function. Continue same treatment and follow-up as planned. Patient's made aware. [facility] Orders Onlyon 03-21-2024 Orders Only [id number] Nadir Beth 1940 M Date Provider Department Center 03/21/2024 895-LUCRETIA MURPHY [facility] Family History Problem Relation Age of Onset Coronary artery disease Father Family Status - Relation Status Age at Father [facility] Office Visiton 03-03-2024 Follow-up visit [id number] Steen 1940 M Date Provider Department Center 03/03/2024 CLARIBEL VILLALOBOS [facility] Family History Problem Relation Age of Onset Coronary artery disease Father Family Status - Relation Status Age at Father Level of Service:26707 [place] OFFICE/OUTPATIENT ESTABLISHED MOD MDM 30 MIN Reason for Visit and Comments: Follow-up [[id number]] [facility] 36on 12-29-2023 36 Called and spoke with patient and rescheduled patients appointment from 05/31 to 06/07. [facility] 36on 12-28-2023 36 Called patient lvm to contact the office back to reschedule appointment. [facility] Follow-Upon 11-17-2023 Follow-Up [id number] Steen 1940 M Date Provider Department Center 11/17/2023 [facility]RO Comprehensiv Family History Problem Relation Age of Onset Coronary artery disease Father Family Status - Relation Status Age at Father Level of Service:68671 [place] OFFICE/OUTPATIENT ESTABLISHED MOD MDM 30 MIN () Reason for Visit and Comments: Follow-up [[id number]] Chronic Kidney Disease [176] [facility] Lab Reportson 10-21-2023 Lab Reports [id number] #[id number] [facility] Gastroenterology Office/Clin ic Noteon 10-18-2023 Gastroenterology [...] (more content not included)... Normal [facility] Comment on above: Result Comment: Elec tronically Signed By: Patricia BRITT, Nereyda Marroquin\.br\Date and Time Signed: 10/18/23 11:30 EST Ambulatory Visit Summaryon 1 12-14-2022 Ambulatory Visit Summary NADIR BETH :1940 Visit Date:10/14/2023 Ambulatory Visit Instructions Your Diagnosis Constipation History of colon polyps Family history of colon cancer Your Care Team Attending Physician - Nereyda Gomez CNP Primary Care Physician - Pj Youssef MD This Is Your Medications List [...] PM EST With: Nereyda Gomez CNP Where: [facility] Digestive Health Normal [facility] Patient Educationon 10-14-20 23 Patient Education Gastroenterology [...] Do not hold it in. ? Take vfzx-smn-dqnzdoq and prescription medicines only as told by [...] keep your urine pale yellow. ? Take rpmx-brs-mbkhovd and prescription medicines only as told by your health care provider. This includes any fiber supplements. This information is not intended to replace advice given to you by your health care provider. Make sure you discuss any questions you have with your health care provider. Document Revised: 09/18/2020 Document Reviewed: 09/18/2020 [employer] Patient Education ? 2022 [employer]. [facility] 36on 10-12-2023 36 Patient called to make you aware that he was in [facility] ED on (Wednesday) for SOB. He wanted you to look over his records. I have uploaded them all into his vice president media relations for your review. His BNP is increased to 4000 and was previously 2600 about 1 month ago. Looks like they gave him extra lasix in the ED and recommended he follow up with Dr. Youssef outpatient. Can you please review and let me know if you'd like anything done/ordered? Thanks. [facility] 36on 09-20-2023 36 Called and spoke with and rescheduled appointment and informed her patient would need to get labs done. [facility] 36 Patients called in to reschedule appointment from 09/08 [facility] Office Visiton 09-17-2023 Follow-up visit [id number] Nadir Beth 1940 M Date Provider Department Center 09/17/2023 CLARIBEL VILLALOBOS [facility] Family History Problem Relation Age of Onset Coronary artery disease Father Family Status - Relation Status Age at Father Level of Service:03637 [place] OFFICE/OUTPATIENT ESTABLISHED MOD MDM 30-39 MIN Reason for Visit and Comments: [id number][facility] Clinic Subjective Nadir Beth is a 83 [...] extremity edema. He was admitted to the [facility] in August 2022 due to hyponatremia, hyperkalemia and acute kidney injury, leukocytosis secondary to COVID-19 causing dehydration. I saw him on 05/24/2023 and the office and he had significant evidence of volume overload by exam and echocardiogram. I intensified his diuretic regimen. He ended up getting admitted to the [facility] with acute heart failure exacerbation [...] Allergies Allergen Reactions Iodinated Contrast Media Nitroglycerin Vfwstae-Grg-Lvv Reductase Inhibitors Medications Current Outpatient Medications: acyclovir [...] Take 1 ta (more content not included)... [facility] NURSNOTEon 08-31-2023 NURSNOTE Pt performed and passed bedside swallow study. RN educated pt on d/c instructions. RN encouraged pt to voice any questions or concerns. Pt verbalizes no questions or concerns at this time. Pt was wheeled off of unit with all of belongings. [facility] Telephoneon 08-24-2023 Telephone [id number] Nadir Beth 1940 M Date Provider Department Center 08/24/2023 [facility] Family History Problem Relation Age of Onset Coronary artery disease Father Family Status - Relation Status Age at Father [facility] Office Visiton 07-21-2023 Follow-up visit [id number] Nadir Beth 1940 M Date Provider Department Center 07/21/2023 CLARIBEL VILLALOBOS Family History Problem Relation Age of Onset Coronary artery disease Father Family Status - Relation Status Age at Father Level of Service:61623 [place] OFFICE/OUTPATIENT ESTABLISHED MOD [facility] 30-39 MIN Reason for Visit and Comments: Follow-up [[id number]] Normal [facility] MICRO OTHER TESTSOrdered By: Francisco Bolanos [...] [Mass/Vol] 3.3 g/dL Critically low 3.4-5.0 Th [facility] Comment on above: Performed By: #### M G, BMP, PHOS #### [facility] [address] [place] [address] Dr. David Magana GLYCOHEMOGLOBIN A1Con 2022 ADA RECOMMENDATION SEE BELOW Normal [facility] Comment on above: Result Comment: ADA RECOMMENDED LIMIT 4.0 - 6.0 ADA THERAPEUTIC TARGET < 7.0 ACTION SUGGESTED > 7.0 Performed By: #### A 1C #### [facility] [address] [address] [address] David Magana Glucose [Mass/Vol] 108 mg/dL Normal [facility] Comment on above: Performed By: #### A 1C #### [facility] [address] [address] [address] David Magana HbA1c (Bld) [Mass fraction] 5.4 % Normal 4.5-6.2 [facility] Comment on above: Performed By: #### A 1C #### [facility] [address] [address] [address] David Magana PHOSPHORUSon 03-24-2023 Phosphate [Mass/Vol] 3.6 mg/dL Normal 2.6-4.7 [facility] Comment on above: Performed By: #### M G BMP, PHOS #### [facility] [address] [address] [address] David Magana PROF CHEM 8 (BAS METB)on Anion gap [Moles/Vol] 11.6 mmol/L Normal [facility] Comment on above: Performed By: #### M G, BMP, PHOS #### [facility] [address] [address] [address] David Magana Calcium [Mass/Vol] 8.9 mg/dL Normal 8.5-10.1 [facility] Comment on above: Performed By: #### M G, BMP, PHOS #### [facility] [address] [address] [address] David Magana Chloride [Moles/Vol] 107 mmol/L Normal 98-107 [facility] Comment on above: Performed By: #### M G, BMP, PHOS #### [facility] [address] [address] [address] David Magana CO2 [Moles/Vol] 30.8 mmol/L Normal 21.0-32.0 [facility] Comment on above: Performed By: #### M G, BMP, PHOS #### [facility] [address] [address] [address] David Magana Creatinine [Mass/Vol] 1.67 mg/dL Critically high 0.70-1.30 [facility] Comment on above: Performed By: #### ERICK Jacques, PHOS #### [facility] [address] [place] [address] Dr. David Magana EGFR-AF GUINEAN 48 mL/min/1.73m2 Critically low >=60 [facility] Comment on above: Performed By: #### M Marcell BMP, PHOS #### [facility] [address] [place] [address] Dr. David Magana EGFR-NON AF GUINEAN 39 mL/min/1.73m2 Critically low >=60 [facility] Comment on above: Performed By: #### ERICK Jacques, PHOS #### [facility] [address] [place] [address] Dr. David Magana Glucose [Mass/Vol] 128 mg/dL Critically high 74-106 T [facility] Comment on above: Performed By: #### ERICK Jacques, PHOS #### [facility] [address] [place] [address] Dr. David Magana Potassium [Moles/Vol] 4.4 mmol/L Normal 3.5-5.1 [facility] Comment on above: Performed By: #### ERICK Jacques, PHOS #### [facility] [address] [place] [address] Dr. David Magana Sodium [Moles/Vol] 145 mmol/L Normal 136-145 [facility] Comment on above: Performed By: #### Jim Faith BMP, PHOS #### [facility] [address] [place] [address] Dr. David Magana Urea nitrogen [Mass/Vol] 25.0 mg/dL Critically high 7.0-18.0 [facility] Comment on above: Performed By: #### Jim Faith BMP, PHOS #### [facility] [address] [place] [address] Dr. David Magana Urea nitrogen/Creatinine [Mass ratio] 15.0 mg/mg Normal [facility] Comment on above: Performed By: #### ERICK Jacques, PHOS #### [facility] [address] [place] [address] Dr. David Magana VITAMIN D 25 OHon 03-24-2023 VIT D 25-OH 11.6 ng/mL Normal [facility] Comment on above: Performed By: #### C BC #### [facility] [address] [place] [address] Dr. David Magana VIT D RANGES SEE BELOW Normal [facility] Comment on above: Result Comment: <20 ng/mL Vit D deficient 20 - <30 ng/mL Vit D insufficient 30 - 100 ng/mL Vit D sufficient >100 ng/mL Potential Toxicity Performed By: #### C BC #### [facility] [address] [place] [address] Dr. David Magana CBC AUTO DIFFon 02-27-2023 BASO # 0.0 103/ul Normal 0.0-0.1 [facility] Comment on above: Performed By: #### ERICK Jacques, PHOS #### [facility] [address] [place] [address] Dr. David Magana Basophils/100 WBC (Bld) 0.5 % Normal 0.2-2.0 [facility] Comment on above: Performed By: #### ERICK Jacques, PHOS #### [facility] [address] [place] [address] Dr. David Magana EO # 0.7 103/ul Normal 0.0-0.7 [facility] Comment on above: Performed By: #### ERICK Jacques, PHOS #### [facility] [address] [place] [address] Dr. David Magana Eosinophils/100 WBC (Bld) 9.3 % Critically high 0.9-7.0 [facility] Comment on above: Performed By: #### ERICK Jacques, PHOS #### [facility] [address] [place] [address] Dr. David Magana Erythrocyte distribution width (RBC) [Ratio] 14.6 % Normal 11.0-15.0 [facility] Comment on above: Performed By: #### ERICK Jacques, PHOS #### [facility] [address] [place] [address] Dr. David Magana Hematocrit (Bld) [Volume fraction] 41.5 % Critically low 42.0-54.0 [facility] Comment on above: Performed By: #### M Marcell, BMP, PHOS #### [facility] [address] [place] [address] Dr. David Magana Hemoglobin (Bld) [Mass/Vol] 13.9 g/dL Critically low 14.0-18.0 [facility] Comment on above: Performed By: #### M G, BMP, PHOS #### [facility] [address] [place] [address] Dr. David Magana IG # 0.02 10e3/ul Normal 0.00-0.03 [facility] Comment on above: Performed By: #### M G, BMP, PHOS #### [facility] [address] [place] [address] Dr. David Magana IG % 0.3 % Normal 0.0-0.5 [facility] Comment on above: Performed By: #### M G, BMP, PHOS #### [facility] [address] [place] [address] Dr. David Magana LYMPH # 1.0 103/ul Critically low 1.2-3.8 [facility] Comment on above: Performed By: #### M G, BMP, PHOS #### [facility] [address] [place] [address] Dr. David Magana Lymphocytes/100 WBC (Bld) 13.0 % Critically low 20.5-60.0 [facility] Comment on above: Performed By: #### M G, BMP, PHOS #### [facility] [address] [place] [address] Dr. David Magana MANUAL DIFF REQ NO Normal [facility] Comment on above: Performed By: #### M G, BMP, PHOS #### [facility] [address] [place] [address] Dr. David Magana MCH (RBC) [Entitic mass] 33.5 pg Normal 25.9-34.0 [facility] Comment on above: Performed By: #### M ERICK Faith, PHOS #### [facility] [address] [place] [address] Dr. David Magana MCHC (RBC) [Mass/Vol] 33.5 g/dL Normal 29.9-35.2 [facility] Comment on above: Performed By: #### ERICK Jacques, PHOS #### [facility] [address] [place] [address] Dr. David Magana MCV (RBC) [Entitic vol] 100.0 fL Critically high 80.0-94.0 [facility] Comment on above: Performed By: #### ERICK Jacques, PHOS #### [facility] [address] [place] [address] Dr. David Magana MONO # 0.8 103/ul Normal 0.3-0.8 [facility] Comment on above: Performed By: #### ERICK Jacques, PHOS #### [facility] [address] [place] [address] Dr. David Magana Monocytes/100 WBC (Bld) 10.1 % Normal 1.7-12.0 [facility] Comment on above: Performed By: #### ERICK Jacques, PHOS #### [facility] [address] [place] [address] Dr. David Magana NEUT # 5.0 103/ul Normal 1.4-6.5 [facility] Comment on above: Performed By: #### ERICK Jacques, PHOS #### [facility] [address] [place] [address] Dr. David Magana Neutrophils/100 WBC (Bld) 66.8 % Normal 43.0-75.0 [facility] Comment on above: Performed By: #### ERICK Jacques, PHOS #### [facility] [address] [place] [address] Dr. David Magana Platelet mean volume (Bld) [Entitic vol] 11.2 fL Normal 9.5-13.5 [facility] Comment on above: Performed By: #### ERICK Jacques, PHOS #### [facility] [address] [address] [address] David Magana PLT 187 103/ul Normal 150-450 [facility] Comment on above: Performed By: #### ERICK Jacques PHOS #### [facility] [address] [place] [address] Dr. David Magana RBC 4.15 106/ul Critically low 4.70-6.10 [facility] Comment on above: Performed By: #### ERICK Jacques PHOS #### [facility] [address] [place] [address] Dr. David Magana WBC 7.5 103/ul Normal 4.0-11.0 [facility] Comment on above: Performed By: #### ERICK Jacques PHOS #### [facility] [address] [place] [address] Dr. David Magana PROF 14(COMP METB)on 023 Albumin [Mass/Vol] 3.5 g/dL Normal 3.4-5.0 [facility] Comment on above: Performed By: #### A 1C #### [facility] [address] [place] [address] Dr. David Magana Albumin/Globulin [Mass ratio] 1.1 {ratio} Normal [facility] Comment on above: Performed By: #### A 1C #### [facility] [address] [place] [address] Dr. David Magana ALP [Catalytic activity/Vol] 76 U/L Normal 46-116 [facility] Comment on above: Performed By: #### A 1C #### [facility] [address] [place] [address] Dr. David Magana ALT [Catalytic activity/Vol] 23 U/L Normal 16-63 [facility] Comment on above: Performed By: #### A 1C #### [facility] [address] [place] [address] Dr. David Magana Anion gap [Moles/Vol] 13.1 mmol/L Normal [facility] Comment on above: Performed By: #### A 1C #### [facility] [address] [address] [address] David Magana AST [Catalytic activity/Vol] 17 U/L Normal 15-37 [facility] Comment on above: Performed By: #### A 1C #### [facility] [address] [address] [address] David Magana Bilirubin [Mass/Vol] 0.7 mg/dL Normal 0.2-1.0 [facility] Comment on above: Performed By: #### A 1C #### [facility] [address] [address] [address] David Magana Calcium [Mass/Vol] 9.0 mg/dL Normal 8.5-10.1 [facility] Comment on above: Performed By: #### A 1C #### [facility] [address] [address] [address] David Magana Chloride [Moles/Vol] 105 mmol/L Normal 98-107 [facility] Comment on above: Performed By: #### A 1C #### [facility] [address] [address] [address] David Magana CO2 [Moles/Vol] 29.0 mmol/L Normal 21.0-32.0 [facility] Comment on above: Performed By: #### A 1C #### [facility] [address] [place] [address] Dr. David Magana Creatinine [Mass/Vol] 1.77 mg/dL Critically high 0.70-1.30 [facility] Comment on above: Performed By: #### A 1C #### [facility] [address] [place] [address] Dr. David Magana EGFR-AF GUINEAN 45 mL/min/1.73m2 Critically low >=60 [facility] Comment on above: Performed By: #### A 1C #### [facility] [address] [address] [address] David Magana EGFR-NON AF GUINEAN 37 mL/min/1.73m2 Critically low >=60 [facility] Comment on above: Performed By: #### A 1C #### [facility] [address] [address] [address] David Magana Globulin (S) [Mass/Vol] 3.3 g/dL Normal [facility] Comment on above: Performed By: #### A 1C #### [facility] [address] [address] [address] David Magana Glucose [Mass/Vol] 135 mg/dL Critically high 74-106 [facility] Comment on above: Performed By: #### A 1C #### [facility] [address] [address] [address] David Magana Potassium [Moles/Vol] 4.1 mmol/L Normal 3.5-5.1 [facility] Comment on above: Performed By: #### A 1C #### [facility] [address] [address] [address] David Magana Protein [Mass/Vol] 6.8 g/dL Normal 6.4-8.2 [facility] Comment on above: Performed By: #### A 1C #### [facility] [address] [place] [address] Dr. David Magana Sodium [Moles/Vol] 143 mmol/L Normal 136-145 [facility] Comment on above: Performed By: #### A 1C #### [facility] [address] [place] [address] Dr. David Magana Urea nitrogen [Mass/Vol] 31.0 mg/dL Critically high 7.0-18.0 [facility] Comment on above: Performed By: #### A 1C #### [facility] [address] [address] [address] David Magana Urea nitrogen/Creatinine [Mass ratio] 17.5 mg/mg Normal [facility] Comment on above: Performed By: #### A 1C #### [facility] [address] [place] [address] Dr. David Magana PROTIMEon 02-27-2023 INR Coag (PPP) [Relative time] 0.99 {INR} Normal [facility] Comment on above: Performed By: #### A 1C #### [facility] [address] [place] [address] Dr. David Magana INR GUIDELINES SEE BELOW Normal [facility] Comment on above: Result Comment: IDANIA RED INR: 2.0 - 3.0 CONDITIONS NOT LISTED BELOW 2.5 - 3.5 FOR PROSTHETIC HEART VALVE REPLACEMENT 2.5 - 3.5 RECURRENT THROMBOSIS Performed By: #### A 1C #### [facility] [address] [place] [address] Dr. David Magana PT Coag (PPP) [Time] 10.5 s Normal 9.0-11.6 [facility] Comment on above: Performed By: #### A 1C #### [facility] [address] [place] [address] Dr. David Magana PTTon 02-27-2023 aPTT Coag (Bld) [Time] 33.0 s Normal 22.3-36.2 [facility] Comment on above: Performed By: #### P OCGLUC #### [facility] [address] [place] [address] Dr. David Magana ALBUMINon 12-28-2022 Albumin [Mass/Vol] 3.6 g/dL Normal 3.4-5.0 [facility] Comment on above: Performed By: #### C BC #### [facility] [address] [place] [address] Dr. David Magana GLYCOHEMOGLOBIN A1Con 2022 ADA RECOMMENDATION SEE BELOW Normal [facility] Comment on above: Result Comment: ADA RECOMMENDED LIMIT 4.0 - 6.0 ADA THERAPEUTIC TARGET < 7.0 ACTION SUGGESTED > 7.0 Performed By: #### P OCGLUC #### [facility] [address] [place] [address] Dr. David Magana Glucose [Mass/Vol] 140 mg/dL Normal [facility] Comment on above: Performed By: #### P OCGLUC #### [facility] [address] [place] [address] Dr. David Magana HbA1c (Bld) [Mass fraction] 6.5 % Critically high 4.5-6.2 [facility] Comment on above: Performed By: #### P OCGLUC #### [facility] [address] [address] [address] David Magana MAGNESIUMon 12-28-2022 Magnesium [Mass/Vol] 2.3 mg/dL Normal 1.8-2.4 [facility] Comment on above: Performed By: #### P OCGLUC #### [facility] [address] [address] [address] David Magana PROF CHEM 8 (BAS METB)on Anion gap [Moles/Vol] 13.2 mmol/L Normal [facility] Comment on above: Performed By: #### P OCGLUC #### [facility] [address] [address] [address] David Magana Calcium [Mass/Vol] 9.0 mg/dL Normal 8.5-10.1 [facility] Comment on above: Performed By: #### P OCGLUC #### [facility] [address] [address] [address] David Magana Chloride [Moles/Vol] 105 mmol/L Normal 98-107 [facility] Comment on above: Performed By: #### P OCGLUC #### [facility] [address] [address] [address] David Magana CO2 [Moles/Vol] 28.9 mmol/L Normal 21.0-32.0 [facility] Comment on above: Performed By: #### P OCGLUC #### [facility] [address] [address] [address] David Magana Creatinine [Mass/Vol] 1.66 mg/dL Critically high 0.70-1.30 [facility] Comment on above: Performed By: #### P OCGLUC #### [facility] [address] [address] [address] David Magana EGFR-AF GUINEAN 48 mL/min/1.73m2 Critically low >=60 [facility] Comment on above: Performed By: #### P OCGLUC #### [facility] [address] [address] [address] David Magana EGFR-NON AF GUINEAN 40 mL/min/1.73m2 Critically low >=60 [facility] Comment on above: Performed By: #### P OCGLUC #### [facility] [address] [address] [address] David Magana Glucose [Mass/Vol] 123 mg/dL Critically high 74-106 [facility] Comment on above: Performed By: #### P OCGLUC #### [facility] [address] [address] [address] David Magana Potassium [Moles/Vol] 4.1 mmol/L Normal 3.5-5.1 [facility] Comment on above: Performed By: #### P OCGLUC #### [facility] [address] [address] [address] David Magana Sodium [Moles/Vol] 143 mmol/L Normal 136-145 [facility] Comment on above: Performed By: #### P OCGLUC #### [facility] [address] [address] [address] David Magana Urea nitrogen [Mass/Vol] 29.0 mg/dL Critically high 7.0-18.0 [facility] Comment on above: Performed By: #### P OCGLUC #### [facility] [address] [address] [address] David Magana Urea nitrogen/Creatinine [Mass ratio] 17.5 mg/mg Normal [facility] Comment on above: Performed By: #### P OCGLUC #### [facility] [address] [address] [address] David Magana URINE T PROTEIN CREAT RATIOo n 12-28-2022 UR TOTAL PROTEIN <6.0 Normal <=12.0 [facility] Comment on above: Performed By: #### M G, BMP, PHOS #### [facility] [address] [address] [address] David Magana URINE CREAT 41.21 mg/dL Normal 20.00-300.00 [facility] Comment on above: Performed By: #### M G, BMP, PHOS #### [facility] [address] [address] [address] David Magana ALBUMINon 11-16-2022 Albumin [Mass/Vol] 3.3 g/dL Critically low 3.4-5.0 [facility] Comment on above: Performed By: #### C BC #### [facility] [address] [place] [address] Dr. David Magana CREATININE URINEon URINE CREAT 19.69 mg/dL Critically low 20.00-300.00 [facility] Comment on above: Performed By: #### M ERICK Faith, PHOS #### [facility] [address] [place] [address] Dr. David Magana HEMOGLOBINon 11-16-2022 Hemoglobin (Bld) [Mass/Vol] 14.9 g/dL Normal 14.0-18.0 [facility] Comment on above: Performed By: #### M ERICK Faith, PHOS #### [facility] [address] [place] [address] Dr. David Magana MAGNESIUMon 11-16-2022 Magnesium [Mass/Vol] 2.2 mg/dL Normal 1.8-2.4 [facility] Comment on above: Performed By: #### C BC #### [facility] [address] [place] [address] Dr. David Magana PHOSPHORUSon 11-16-2022 Phosphate [Mass/Vol] 3.9 mg/dL Normal 2.6-4.7 [facility] Comment on above: Performed By: #### C BC #### [facility] [address] [place] [address] Dr. David Magana PROF CHEM 8 (BAS METB)on Anion gap [Moles/Vol] 11.9 mmol/L Normal [facility] Comment on above: Performed By: #### C BC #### [facility] [address] [place] [address] Dr. David Magana Calcium [Mass/Vol] 8.8 mg/dL Normal 8.5-10.1 [facility] Comment on above: Performed By: #### C BC #### [facility] [address] [place] [address] Dr. David Magana Chloride [Moles/Vol] 104 mmol/L Normal 98-107 [facility] Comment on above: Performed By: #### C BC #### [facility] [address] [address] [address] David Magana CO2 [Moles/Vol] 27.4 mmol/L Normal 21.0-32.0 [facility] Comment on above: Performed By: #### C BC #### [facility] [address] [address] [address] David Magana Creatinine [Mass/Vol] 1.68 mg/dL Critically high 0.70-1.30 [facility] Comment on above: Performed By: #### C BC #### [facility] [address] [place] [address] Dr. David Magana EGFR-AF GUINEAN 48 mL/min/1.73m2 Critically low >=60 [facility] Comment on above: Performed By: #### C BC #### [facility] [address] [place] [address] Dr. David Magana EGFR-NON AF GUINEAN 39 mL/min/1.73m2 Critically low >=60 [facility] Comment on above: Performed By: #### C BC #### [facility] [address] [place] [address] Dr. David Magana Glucose [Mass/Vol] 212 mg/dL Critically high 74-106 [facility] Comment on above: Performed By: #### C BC #### [facility] [address] [address] [address] David Magana Potassium [Moles/Vol] 4.3 mmol/L Normal 3.5-5.1 [facility] Comment on above: Performed By: #### C BC #### [facility] [address] [place] [address] Dr. David Magana Sodium [Moles/Vol] 139 mmol/L Normal 136-145 [facility] Comment on above: Performed By: #### C BC #### [facility] [address] [address] [address] David Magana Urea nitrogen [Mass/Vol] 25.0 mg/dL Critically high 7.0-18.0 [facility] Comment on above: Performed By: #### C BC #### [facility] [address] [place] [address] Dr. David Magana Urea nitrogen/Creatinine [Mass ratio] 14.9 mg/mg Normal [facility] Comment on above: Performed By: #### C BC #### [facility] [address] [place] [address] Dr. David Magana PROTEIN RAND URINEon 023 UR PROT <5.0 Normal <=11.9 [facility] Comment on above: Performed By: #### M ERICK Faith PHOS #### [facility] [address] [place] [address] Dr. aDvid Magana US CHANI DOP LEG BILon 022 [...] CLOVER PEREZ Date: 2022-11-02 16:21 Normal [facility] BNPon 07-22-2022 Natriuretic peptide B (Bld) [Mass/Vol] 2143.0 pg/mL Critically high <=1,800.0 [facility] Comment on above: Performed By: #### ERICK Jacques PHOS #### [facility] [address] [place] [address] Dr. David Magana CBC AUTO DIFFon 07-22-2022 BASO # 0.0 103/ul Normal 0.0-0.1 [facility] Comment on above: Performed By: #### A 1C #### [facility] [address] [place] [address] Dr. David Magana Basophils/100 WBC (Bld) 0.3 % Normal 0.2-2.0 [facility] Comment on above: Performed By: #### A 1C #### [facility] [address] [address] [address] David Magana EO # 0.3 103/ul Normal 0.0-0.7 [facility] Comment on above: Performed By: #### A 1C #### [facility] [address] [address] [address] David Magana Eosinophils/100 WBC (Bld) 2.4 % Normal 0.9-7.0 [facility] Comment on above: Performed By: #### A 1C #### [facility] [address] [address] [address] David Magana Erythrocyte distribution width (RBC) [Ratio] 13.4 % Normal 11.0-15.0 [facility] Comment on above: Performed By: #### A 1C #### [facility] [address] [place] [address] Dr. David Magana Hematocrit (Bld) [Volume fraction] 42.7 % Normal 42.0-54.0 [facility] Comment on above: Performed By: #### A 1C #### [facility] [address] [place] [address] Dr. David Magana Hemoglobin (Bld) [Mass/Vol] 14.2 g/dL Normal 14.0-18.0 [facility] Comment on above: Performed By: #### A 1C #### [facility] [address] [address] [address] David Magana IG # 0.18 10e3/ul Critically high 0.00-0.03 [facility] Comment on above: Performed By: #### A 1C #### [facility] [address] [address] [address] David Magana IG % 1.6 % Critically high 0.0-0.5 [facility] Comment on above: Performed By: #### A 1C #### [facility] [address] [place] [address] Dr. David Magana LYMPH # 0.9 103/ul Critically low 1.2-3.8 [facility] Comment on above: Performed By: #### A 1C #### [facility] [address] [place] [address] Dr. David Magana Lymphocytes/100 WBC (Bld) 8.1 % Critically low 20.5-60.0 [facility] Comment on above: Performed By: #### A 1C #### [facility] [address] [place] [address] Dr. David Magana MANUAL DIFF REQ NO Normal [facility] Comment on above: Performed By: #### A 1C #### [facility] [address] [place] [address] Dr. David Magana MCH (RBC) [Entitic mass] 33.3 pg Normal 25.9-34.0 [facility] Comment on above: Performed By: #### A 1C #### [facility] [address] [place] [address] Dr. David Magana MCHC (RBC) [Mass/Vol] 33.3 g/dL Normal 29.9-35.2 [facility] Comment on above: Performed By: #### A 1C #### [facility] [address] [place] [address] Dr. David Magana MCV (RBC) [Entitic vol] 100.2 fL Critically high 80.0-94.0 [facility] Comment on above: Performed By: #### A 1C #### [facility] [address] [place] [address] Dr. David Magana MONO # 1.2 103/ul Critically high 0.3-0.8 [facility] Comment on above: Performed By: #### A 1C #### [facility] [address] [place] [address] Dr. David Magana Monocytes/100 WBC (Bld) 10.5 % Normal 1.7-12.0 [facility] Comment on above: Performed By: #### A 1C #### [facility] [address] [place] [address] Dr. David Magana NEUT # 8.9 103/ul Critically high 1.4-6.5 [facility] Comment on above: Performed By: #### A 1C #### [facility] [address] [address] [address] David Magana Neutrophils/100 WBC (Bld) 77.1 % Critically high 43.0-75.0 [facility] Comment on above: Performed By: #### A 1C #### [facility] [address] [address] [address] David Magana Platelet mean volume (Bld) [Entitic vol] 11.3 fL Normal 9.5-13.5 [facility] Comment on above: Performed By: #### A 1C #### [facility] [address] [address] [address] David Magana PLT 175 103/ul Normal 150-450 [facility] Comment on above: Performed By: #### A 1C #### [facility] [address] [place] [address] Dr. David Magana RBC 4.26 106/ul Critically low 4.70-6.10 [facility] Comment on above: Performed By: #### A 1C #### [facility] [address] [address] [address] David Magana WBC 11.5 103/ul Critically high 4.0-11.0 [facility] Comment on above: Performed By: #### A 1C #### [facility] [address] [place] [address] Dr. David Magana PROF 14(COMP METB)on 022 Albumin [Mass/Vol] 2.6 g/dL Critically low 3.4-5.0 [facility] Comment on above: Performed By: #### M ERICK Faith, PHOS #### [facility] [address] [address] [address] David Magana Albumin/Globulin [Mass ratio] 0.9 {ratio} Normal [facility] Comment on above: Performed By: #### M ERICK Faith, PHOS #### [facility] [address] [address] [address] David Magana ALP [Catalytic activity/Vol] 49 U/L Normal 46-116 [facility] Comment on above: Performed By: #### M G, BMP, PHOS #### [facility] [address] [address] [address] David Magana ALT [Catalytic activity/Vol] 25 U/L Normal 16-63 [facility] Comment on above: Performed By: #### M G, BMP, PHOS #### [facility] [address] [place] [address] Dr. David Magana Anion gap [Moles/Vol] 12.8 mmol/L Normal [facility] Comment on above: Performed By: #### M G, BMP, PHOS #### [facility] [address] [place] [address] Dr. David Magana AST [Catalytic activity/Vol] 9 U/L Critically low 15-37 [facility] Comment on above: Performed By: #### M G, BMP, PHOS #### [facility] [address] [place] [address] Dr. David Magana Bilirubin [Mass/Vol] 0.5 mg/dL Normal 0.2-1.0 [facility] Comment on above: Performed By: #### M G, BMP, PHOS #### [facility] [address] [place] [address] Dr. David Magana Calcium [Mass/Vol] 8.3 mg/dL Critically low 8.5-10.1 [facility] Comment on above: Performed By: #### M G, BMP, PHOS #### [facility] [address] [place] [address] Dr. David Magana Chloride [Moles/Vol] 105 mmol/L Normal 98-107 [facility] Comment on above: Performed By: #### M G, BMP, PHOS #### [facility] [address] [place] [address] Dr. David Magana CO2 [Moles/Vol] 24.2 mmol/L Normal 21.0-32.0 [facility] Comment on above: Performed By: #### M G, BMP, PHOS #### [facility] [address] [place] [address] Dr. David Magana Creatinine [Mass/Vol] 1.28 mg/dL Normal 0.70-1.30 [facility] Comment on above: Performed By: #### ERICK Jacques, PHOS #### [facility] [address] [address] [address] David Magana EGFR-AF GUINEAN >60 Normal >=60 [facility] Comment on above: Performed By: #### M ERICK Faith, PHOS #### [facility] [address] [address] [address] David Magana EGFR-NON AF GUINEAN 54 mL/min/1.73m2 Critically low >=60 [facility] Comment on above: Performed By: #### ERICK Jacques, PHOS #### [facility] [address] [place] [address] Dr. David Magana Globulin (S) [Mass/Vol] 2.9 g/dL Normal [facility] Comment on above: Performed By: #### ERICK Jacques, PHOS #### [facility] [address] [place] [address] Dr. David Magana Glucose [Mass/Vol] 205 mg/dL Critically high 74-106 [facility] Comment on above: Performed By: #### ERICK Jacques, PHOS #### [facility] [address] [place] [address] Dr. David Magana Potassium [Moles/Vol] 4.0 mmol/L Normal 3.5-5.1 [facility] Comment on above: Performed By: #### M ERICK Faith, PHOS #### [facility] [address] [place] [address] Dr. David Magana Protein [Mass/Vol] 5.5 g/dL Critically low 6.4-8.2 [facility] Comment on above: Performed By: #### M ERICK Faith, PHOS #### [facility] [address] [place] [address] Dr. David Magana Sodium [Moles/Vol] 138 mmol/L Normal 136-145 [facility] Comment on above: Performed By: #### M ERICK Faith, PHOS #### [facility] [address] [place] [address] Dr. David Magana Urea nitrogen [Mass/Vol] 36.0 mg/dL Critically high 7.0-18.0 [facility] Comment on above: Performed By: #### M ERICK Faith, PHOS #### [facility] [address] [place] [address] Dr. David Magana Urea nitrogen/Creatinine [Mass ratio] 28.1 mg/mg Normal [facility] Comment on above: Performed By: #### M ERICK Faith, PHOS #### [facility] [address] [place] [address] Dr. David Maagna BNPon 07-21-2022 Natriuretic peptide B (Bld) [Mass/Vol] 3485.0 pg/mL Critically high <=1,800.0 [facility] Comment on above: Result Comment: repe ated Performed By: #### A 1C #### [facility] [address] [place] [address] Dr. David Magana CBC AUTO DIFFon 07-21-2022 BASO # 0.0 103/ul Normal 0.0-0.1 [facility] Comment on above: Performed By: #### C BC #### [facility] [address] [place] [address] Dr. David Magana Basophils/100 WBC (Bld) 0.3 % Normal 0.2-2.0 [facility] Comment on above: Performed By: #### C BC #### [facility] [address] [place] [address] Dr. David Magana EO # 0.2 103/ul Normal 0.0-0.7 [facility] Comment on above: Performed By: #### C BC #### [facility] [address] [place] [address] Dr. David Magana Eosinophils/100 WBC (Bld) 1.9 % Normal 0.9-7.0 [facility] Comment on above: Performed By: #### C BC #### [facility] [address] [place] [address] Dr. David Magana Erythrocyte distribution width (RBC) [Ratio] 13.4 % Normal 11.0-15.0 [facility] Comment on above: Performed By: #### C BC #### [facility] [address] [place] [address] Dr. David Magana Hematocrit (Bld) [Volume fraction] 42.5 % Normal 42.0-54.0 [facility] Comment on above: Performed By: #### C BC #### [facility] [address] [place] [address] Dr. David Magana Hemoglobin (Bld) [Mass/Vol] 14.2 g/dL Normal 14.0-18.0 [facility] Comment on above: Performed By: #### C BC #### [facility] [address] [place] [address] Dr. David Magana IG # 0.22 10e3/ul Critically high 0.00-0.03 [facility] Comment on above: Performed By: #### C BC #### [facility] [address] [place] [address] Dr. David Magana IG % 2.1 % Critically high 0.0-0.5 [facility] Comment on above: Performed By: #### C BC #### [facility] [address] [place] [address] Dr. David Magana LYMPH # 0.8 103/ul Critically low 1.2-3.8 [facility] Comment on above: Performed By: #### C BC #### [facility] [address] [place] [address] Dr. David Magana Lymphocytes/100 WBC (Bld) 7.7 % Critically low 20.5-60.0 [facility] Comment on above: Performed By: #### C BC #### [facility] [address] [place] [address] Dr. David Magana MANUAL DIFF REQ NO Normal [facility] Comment on above: Performed By: #### C BC #### [facility] [address] [place] [address] Dr. David Magana MCH (RBC) [Entitic mass] 33.0 pg Normal 25.9-34.0 [facility] Comment on above: Performed By: #### C BC #### [facility] [address] [place] [address] Dr. David Magana MCHC (RBC) [Mass/Vol] 33.4 g/dL Normal 29.9-35.2 [facility] Comment on above: Performed By: #### C BC #### [facility] [address] [place] [address] Dr. David Magana MCV (RBC) [Entitic vol] 98.8 fL Critically high 80.0-94.0 [facility] Comment on above: Performed By: #### C BC #### [facility] [address] [place] [address] Dr. David Magana MONO # 1.0 103/ul Critically high 0.3-0.8 [facility] Comment on above: Performed By: #### C BC #### [facility] [address] [place] [address] Dr. David Magana Monocytes/100 WBC (Bld) 9.7 % Normal 1.7-12.0 [facility] Comment on above: Performed By: #### C BC #### [facility] [address] [place] [address] Dr. David Magana NEUT # 8.1 103/ul Critically high 1.4-6.5 [facility] Comment on above: Performed By: #### C BC #### [facility] [address] [place] [address] Dr. David Magana Neutrophils/100 WBC (Bld) 78.3 % Critically high 43.0-75.0 [facility] Comment on above: Performed By: #### C BC #### [facility] [address] [place] [address] Dr. David Magana Platelet mean volume (Bld) [Entitic vol] 10.7 fL Normal 9.5-13.5 [facility] Comment on above: Performed By: #### C BC #### [facility] [address] [place] [address] Dr. David Magana PLT 177 103/ul Normal 150-450 [facility] Comment on above: Performed By: #### C BC #### [facility] [address] [place] [address] Dr. David Magana RBC 4.30 106/ul Critically low 4.70-6.10 [facility] Comment on above: Performed By: #### C BC #### [facility] [address] [place] [address] Dr. David Magana WBC 10.4 103/ul Normal 4.0-11.0 [facility] Comment on above: Performed By: #### C BC #### [facility] [address] [place] [address] Dr. David Magana PROF 14(COMP METB)on 022 Albumin [Mass/Vol] 2.6 g/dL Critically low 3.4-5.0 [facility] Comment on above: Performed By: #### A 1C #### [facility] [address] [place] [address] Dr. David Magana Albumin/Globulin [Mass ratio] 1.0 {ratio} Normal [facility] Comment on above: Performed By: #### A 1C #### [facility] [address] [place] [address] Dr. David Magana ALP [Catalytic activity/Vol] 50 U/L Normal 46-116 [facility] Comment on above: Performed By: #### A 1C #### [facility] [address] [place] [address] Dr. David Magana ALT [Catalytic activity/Vol] 28 U/L Normal 16-63 [facility] Comment on above: Performed By: #### A 1C #### [facility] [address] [place] [address] Dr. David Magana Anion gap [Moles/Vol] 11.4 mmol/L Normal [facility] Comment on above: Performed By: #### A 1C #### [facility] [address] [place] [address] Dr. David Magana AST [Catalytic activity/Vol] 13 U/L Critically low 15-37 [facility] Comment on above: Performed By: #### A 1C #### [facility] [address] [address] [address] David Magana Bilirubin [Mass/Vol] 0.4 mg/dL Normal 0.2-1.0 [facility] Comment on above: Performed By: #### A 1C #### [facility] [address] [address] [address] David Magana Calcium [Mass/Vol] 8.4 mg/dL Critically low 8.5-10.1 [facility] Comment on above: Performed By: #### A 1C #### [facility] [address] [address] [address] David Magana Chloride [Moles/Vol] 107 mmol/L Normal 98-107 [facility] Comment on above: Performed By: #### A 1C #### [facility] [address] [address] [address] David Magana CO2 [Moles/Vol] 24.6 mmol/L Normal 21.0-32.0 [facility] Comment on above: Performed By: #### A 1C #### [facility] [address] [address] [address] David Magana Creatinine [Mass/Vol] 1.26 mg/dL Normal 0.70-1.30 [facility] Comment on above: Performed By: #### A 1C #### [facility] [address] [place] [address] Dr. David Magana EGFR-AF GUINEAN >60 Normal >=60 [facility] Comment on above: Performed By: #### A 1C #### [facility] [address] [address] [address] David Magana EGFR-NON AF GUINEAN 55 mL/min/1.73m2 Critically low >=60 [facility] Comment on above: Performed By: #### A 1C #### [facility] [address] [address] [address] David Magana Globulin (S) [Mass/Vol] 2.7 g/dL Normal [facility] Comment on above: Performed By: #### A 1C #### [facility] [address] [address] [address] David Magana Glucose [Mass/Vol] 203 mg/dL Critically high 74-106 [facility] Comment on above: Performed By: #### A 1C #### [facility] [address] [address] [address] David Magana Potassium [Moles/Vol] 4.0 mmol/L Normal 3.5-5.1 [facility] Comment on above: Performed By: #### A 1C #### [facility] [address] [place] [address] Dr. David Magana Protein [Mass/Vol] 5.3 g/dL Critically low 6.4-8.2 [facility] Comment on above: Performed By: #### A 1C #### [facility] [address] [place] [address] Dr. David Magana Sodium [Moles/Vol] 139 mmol/L Normal 136-145 [facility] Comment on above: Performed By: #### A 1C #### [facility] [address] [place] [address] Dr. David Magana Urea nitrogen [Mass/Vol] 33.0 mg/dL Critically high 7.0-18.0 [facility] Comment on above: Performed By: #### A 1C #### [facility] [address] [place] [address] Dr. David Magana Urea nitrogen/Creatinine [Mass ratio] 26.2 mg/mg Normal [facility] Comment on above: Performed By: #### A 1C #### [facility] [address] [place] [address] Dr. David Magana BNPon 07-20-2022 Natriuretic peptide B (Bld) [Mass/Vol] 7478.0 pg/mL Critically high <=1,800.0 [facility] Comment on above: Performed By: #### A 1C #### [facility] [address] [place] [address] Dr. David Magana CBC AUTO DIFFon 07-20-2022 BASO # 0.1 103/ul Normal 0.0-0.1 [facility] Comment on above: Performed By: #### M ERICK Faith, PHOS #### [facility] [address] [place] [address] Dr. David Magana Basophils/100 WBC (Bld) 0.8 % Normal 0.2-2.0 [facility] Comment on above: Performed By: #### M ERICK Faith, PHOS #### [facility] [address] [place] [address] Dr. David Magana EO # 0.1 103/ul Normal 0.0-0.7 [facility] Comment on above: Performed By: #### M ERICK Faith, PHOS #### [facility] [address] [place] [address] Dr. David Magana Eosinophils/100 WBC (Bld) 0.6 % Critically low 0.9-7.0 [facility] Comment on above: Performed By: #### ERICK Jacques, PHOS #### [facility] [address] [place] [address] Dr. David Magana Erythrocyte distribution width (RBC) [Ratio] 13.4 % Normal 11.0-15.0 [facility] Comment on above: Performed By: #### ERICK Jacques, PHOS #### [facility] [address] [place] [address] Dr. Dvaid Magana Hematocrit (Bld) [Volume fraction] 43.2 % Normal 42.0-54.0 [facility] Comment on above: Performed By: #### ERICK Jacques, PHOS #### [facility] [address] [place] [address] Dr. David Magana Hemoglobin (Bld) [Mass/Vol] 14.2 g/dL Normal 14.0-18.0 [facility] Comment on above: Performed By: #### M ERICK Faith, PHOS #### [facility] [address] [place] [address] Dr. David Magana IG # 0.21 10e3/ul Critically high 0.00-0.03 [facility] Comment on above: Performed By: #### M ERICK Faith, PHOS #### [facility] [address] [place] [address] Dr. David Magana IG % 2.0 % Critically high 0.0-0.5 [facility] Comment on above: Performed By: #### M G, BMP, PHOS #### [facility] [address] [place] [address] Dr. David Magana LYMPH # 0.8 103/ul Critically low 1.2-3.8 [facility] Comment on above: Performed By: #### M G, BMP, PHOS #### [facility] [address] [place] [address] Dr. David Magana Lymphocytes/100 WBC (Bld) 7.7 % Critically low 20.5-60.0 [facility] Comment on above: Performed By: #### M G, BMP, PHOS #### [facility] [address] [place] [address] Dr. David Magana MANUAL DIFF REQ NO Normal [facility] Comment on above: Performed By: #### M G, BMP, PHOS #### [facility] [address] [place] [address] Dr. David Magana MCH (RBC) [Entitic mass] 33.2 pg Normal 25.9-34.0 [facility] Comment on above: Performed By: #### M G, BMP, PHOS #### [facility] [address] [place] [address] Dr. David Magana MCHC (RBC) [Mass/Vol] 32.9 g/dL Normal 29.9-35.2 [facility] Comment on above: Performed By: #### M G, BMP, PHOS #### [facility] [address] [place] [address] Dr. David Magana MCV (RBC) [Entitic vol] 100.9 fL Critically high 80.0-94.0 [facility] Comment on above: Performed By: #### M G, BMP, PHOS #### [facility] [address] [place] [address] Dr. David Magana MONO # 1.0 103/ul Critically high 0.3-0.8 [facility] Comment on above: Performed By: #### ERICK Jacques, PHOS #### [facility] [address] [place] [address] Dr. David Magana Monocytes/100 WBC (Bld) 10.0 % Normal 1.7-12.0 [facility] Comment on above: Performed By: #### ERICK Jacques, PHOS #### [facility] [address] [place] [address] Dr. David Magana NEUT # 8.1 103/ul Critically high 1.4-6.5 [facility] Comment on above: Performed By: #### ERICK Jacques, PHOS #### [facility] [address] [place] [address] Dr. David Magana Neutrophils/100 WBC (Bld) 78.9 % Critically high 43.0-75.0 [facility] Comment on above: Performed By: #### ERICK Jacques, PHOS #### [facility] [address] [place] [address] Dr. David Magana Platelet mean volume (Bld) [Entitic vol] 10.8 fL Normal 9.5-13.5 [facility] Comment on above: Performed By: #### ERICK Jacques, PHOS #### [facility] [address] [place] [address] Dr. David Magana PLT 172 103/ul Normal 150-450 [facility] Comment on above: Performed By: #### ERICK Jacques, PHOS #### [facility] [address] [place] [address] Dr. David Magana RBC 4.28 106/ul Critically low 4.70-6.10 [facility] Comment on above: Performed By: #### ERICK Jacques, PHOS #### [facility] [address] [place] [address] Dr. David Magana WBC 10.3 103/ul Normal 4.0-11.0 [facility] Comment on above: Performed By: #### ERICK Jacques, PHOS #### [facility] [address] [place] [address] Dr. David Magana CULTURE URINEon 07-20-2022 CULTURE [...] F Trimethoprim/Sulfame thoxazole >=320 R F Normal [facility] Comment on above: Performed By: #### M GERICK, PHOS #### [facility] [address] [place] [address] Dr. David Magana PROF 14(COMP METB)on 022 Albumin [Mass/Vol] 2.6 g/dL Critically low 3.4-5.0 [facility] Comment on above: Performed By: #### A 1C #### [facility] [address] [place] [address] Dr. David Magana Albumin/Globulin [Mass ratio] 0.9 {ratio} Normal [facility] Comment on above: Performed By: #### A 1C #### [facility] [address] [place] [address] Dr. David Magana ALP [Catalytic activity/Vol] 48 U/L Normal 46-116 [facility] Comment on above: Performed By: #### A 1C #### [facility] [address] [place] [address] Dr. David Magana ALT [Catalytic activity/Vol] 27 U/L Normal 16-63 [facility] Comment on above: Performed By: #### A 1C #### [facility] [address] [place] [address] Dr. David Magana Anion gap [Moles/Vol] 13.4 mmol/L Normal [facility] Comment on above: Performed By: #### A 1C #### [facility] [address] [address] [address] David Magana AST [Catalytic activity/Vol] 22 U/L Normal 15-37 [facility] Comment on above: Performed By: #### A 1C #### [facility] [address] [address] [address] David Magana Bilirubin [Mass/Vol] 0.5 mg/dL Normal 0.2-1.0 [facility] Comment on above: Performed By: #### A 1C #### [facility] [address] [address] [address] aDvid Magana Calcium [Mass/Vol] 8.3 mg/dL Critically low 8.5-10.1 [facility] Comment on above: Performed By: #### A 1C #### [facility] [address] [address] [address] David Magana Chloride [Moles/Vol] 105 mmol/L Normal 98-107 [facility] Comment on above: Performed By: #### A 1C #### [facility] [address] [address] [address] David Magana CO2 [Moles/Vol] 21.0 mmol/L Normal 21.0-32.0 [facility] Comment on above: Performed By: #### A 1C #### [facility] [address] [address] [address] David Magana Creatinine [Mass/Vol] 1.38 mg/dL Critically high 0.70-1.30 [facility] Comment on above: Performed By: #### A 1C #### [facility] [address] [address] [address] David Magana EGFR-AF GUINEAN 60 mL/min/1.73m2 Normal >=60 [facility] Comment on above: Performed By: #### A 1C #### [facility] [address] [address] [address] David Magana EGFR-NON AF GUINEAN 49 mL/min/1.73m2 Critically low >=60 [facility] Comment on above: Performed By: #### A 1C #### [facility] [address] [address] [address] David Magana Globulin (S) [Mass/Vol] 2.8 g/dL Normal [facility] Comment on above: Performed By: #### A 1C #### [facility] [address] [place] [address] Dr. David Magana Glucose [Mass/Vol] 156 mg/dL Critically high 74-106 [facility] Comment on above: Performed By: #### A 1C #### [facility] [address] [place] [address] Dr. David Magana Potassium [Moles/Vol] 4.4 mmol/L Normal 3.5-5.1 [facility] Comment on above: Performed By: #### A 1C #### [facility] [address] [place] [address] Dr. David Magana Protein [Mass/Vol] 5.4 g/dL Critically low 6.4-8.2 [facility] Comment on above: Performed By: #### A 1C #### [facility] [address] [place] [address] Dr. David Magana Sodium [Moles/Vol] 135 mmol/L Critically low 136-145 [facility] Comment on above: Performed By: #### A 1C #### [facility] [address] [place] [address] Dr. David Magana Urea nitrogen [Mass/Vol] 40.0 mg/dL Critically high 7.0-18.0 [facility] Comment on above: Performed By: #### A 1C #### [facility] [address] [place] [address] Dr. David Magana Urea nitrogen/Creatinine [Mass ratio] 29.0 mg/mg [facility] Comment on above: Performed By: #### A 1C #### [facility] [address] [place] [address] Dr. David Magana BNPon 07-19-2022 Natriuretic peptide B (Bld) [Mass/Vol] 60437.0 pg/mL Critically high <=1,800.0 [facility] Comment on above: Performed By: #### C VDTBH #### [facility] [address] [place] [address] Dr. David Magana CBC AUTO DIFFon 07-19-2022 BASO # 0.0 103/ul Normal 0.0-0.1 [facility] Comment on above: Performed By: #### C BC #### [facility] [address] [place] [address] Dr. David Magana Basophils/100 WBC (Bld) 0.3 % Normal 0.2-2.0 [facility] Comment on above: Performed By: #### C BC #### [facility] [address] [place] [address] Dr. David Magana EO # 0.0 103/ul Normal 0.0-0.7 [facility] Comment on above: Performed By: #### C BC #### [facility] [address] [place] [address] Dr. David Magana Eosinophils/100 WBC (Bld) 0.2 % Critically low 0.9-7.0 [facility] Comment on above: Performed By: #### C BC #### [facility] [address] [place] [address] Dr. David Magana Erythrocyte distribution width (RBC) [Ratio] 13.4 % Normal 11.0-15.0 [facility] Comment on above: Performed By: #### C BC #### [facility] [address] [place] [address] Dr. David Magana Hematocrit (Bld) [Volume fraction] 43.4 % Normal 42.0-54.0 [facility] Comment on above: Performed By: #### C BC #### [facility] [address] [place] [address] Dr. David Magana Hemoglobin (Bld) [Mass/Vol] 14.6 g/dL Normal 14.0-18.0 [facility] Comment on above: Performed By: #### C BC #### [facility] [address] [place] [address] Dr. David Magana IG # 0.18 10e3/ul Critically high 0.00-0.03 [facility] Comment on above: Performed By: #### C BC #### [facility] [address] [address] [address] David Magana IG % 1.5 % Critically high 0.0-0.5 [facility] Comment on above: Performed By: #### C BC #### [facility] [address] [address] [address] David Magana LYMPH # 0.8 103/ul Critically low 1.2-3.8 [facility] Comment on above: Performed By: #### C BC #### [facility] [address] [place] [address] Dr. David Magana Lymphocytes/100 WBC (Bld) 6.6 % Critically low 20.5-60.0 [facility] Comment on above: Performed By: #### C BC #### [facility] [address] [place] [address] Dr. David Magana MANUAL DIFF REQ NO Normal [facility] Comment on above: Performed By: #### C BC #### [facility] [address] [place] [address] Dr. David Magana MCH (RBC) [Entitic mass] 33.7 pg Normal 25.9-34.0 [facility] Comment on above: Performed By: #### C BC #### [facility] [address] [place] [address] Dr. David Magana MCHC (RBC) [Mass/Vol] 33.6 g/dL Normal 29.9-35.2 [facility] Comment on above: Performed By: #### C BC #### [facility] [address] [place] [address] Dr. David Magana MCV (RBC) [Entitic vol] 100.2 fL Critically high 80.0-94.0 [facility] Comment on above: Performed By: #### C BC #### [facility] [address] [place] [address] Dr. David Magana MONO # 1.1 103/ul Critically high 0.3-0.8 [facility] Comment on above: Performed By: #### C BC #### [facility] [address] [address] [address] David Magana Monocytes/100 WBC (Bld) 9.3 % Normal 1.7-12.0 [facility] Comment on above: Performed By: #### C BC #### [facility] [address] [address] [address] David Magana NEUT # 9.6 103/ul Critically high 1.4-6.5 [facility] Comment on above: Performed By: #### C BC #### [facility] [address] [address] [address] David Magana Neutrophils/100 WBC (Bld) 82.1 % Critically high 43.0-75.0 [facility] Comment on above: Performed By: #### C BC #### [facility] [address] [place] [address] Dr. David Magana Platelet mean volume (Bld) [Entitic vol] 10.8 fL Normal 9.5-13.5 [facility] Comment on above: Performed By: #### C BC #### [facility] [address] [place] [address] Dr. David Magana PLT 202 103/ul Normal 150-450 [facility] Comment on above: Performed By: #### C BC #### [facility] [address] [address] [address] David Magana RBC 4.33 106/ul Critically low 4.70-6.10 [facility] Comment on above: Performed By: #### C BC #### [facility] [id number] David Magana WBC 11.7 103/ul Critically high 4.0-11.0 [facility] Comment on above: Performed By: #### C BC #### [facility] [address] [place] [address] Dr. David Magana PROF 14(COMP METB)on 022 Albumin [Mass/Vol] 3.4 g/dL Normal 3.4-5.0 [facility] Comment on above: Performed By: #### A 1C #### [facility] [address] [place] [address] Dr. David Magana Albumin/Globulin [Mass ratio] 1.1 {ratio} Normal [facility] Comment on above: Performed By: #### A 1C #### [facility] [address] [place] [address] Dr. David Magana ALP [Catalytic activity/Vol] 63 U/L Normal 46-116 [facility] Comment on above: Performed By: #### A 1C #### [facility] [address] [place] [address] Dr. David Magana ALT [Catalytic activity/Vol] 34 U/L Normal 16-63 [facility] Comment on above: Performed By: #### A 1C #### [facility] [address] [place] [address] Dr. David Magana Anion gap [Moles/Vol] 20.9 mmol/L Normal [facility] Comment on above: Performed By: #### A 1C #### [facility] [address] [place] [address] Dr. David Magana AST [Catalytic activity/Vol] 18 U/L Normal 15-37 [facility] Comment on above: Performed By: #### A 1C #### [facility] [address] [place] [address] Dr. David Magana Bilirubin [Mass/Vol] 0.5 mg/dL Normal 0.2-1.0 [facility] Comment on above: Performed By: #### A 1C #### [facility] [address] [place] [address] Dr. David Magana Calcium [Mass/Vol] 8.5 mg/dL Normal 8.5-10.1 [facility] Comment on above: Performed By: #### A 1C #### [facility] [address] [place] [address] Dr. David Magana Chloride [Moles/Vol] 99 mmol/L Normal 98-107 [facility] Comment on above: Performed By: #### A 1C #### [facility] [address] [address] [address] David Magana CO2 [Moles/Vol] 19.1 mmol/L Critically low 21.0-32.0 [facility] Comment on above: Performed By: #### A 1C #### [facility] [address] [address] [address] David Magana Creatinine [Mass/Vol] 1.80 mg/dL Critically high 0.70-1.30 [facility] Comment on above: Performed By: #### A 1C #### [facility] [address] [place] [address] Dr. David Magana EGFR-AF GUINEAN 44 mL/min/1.73m2 Critically low >=60 [facility] Comment on above: Performed By: #### A 1C #### [facility] [address] [place] [address] Dr. David Magana EGFR-NON AF GUINEAN 36 mL/min/1.73m2 Critically low >=60 [facility] Comment on above: Performed By: #### A 1C #### [facility] [address] [place] [address] Dr. David Magana Globulin (S) [Mass/Vol] 3.2 g/dL Normal [facility] Comment on above: Performed By: #### A 1C #### [facility] [address] [place] [address] Dr. David Magana Glucose [Mass/Vol] 287 mg/dL Critically high 74-106 T [facility] Comment on above: Performed By: #### A 1C #### [facility] [address] [place] [address] Dr. David Magana Potassium [Moles/Vol] 5.0 mmol/L Normal 3.5-5.1 [facility] Comment on above: Performed By: #### A 1C #### [facility] [address] [place] [address] Dr. David Magana Protein [Mass/Vol] 6.6 g/dL Normal 6.4-8.2 [facility] Comment on above: Performed By: #### A 1C #### [facility] [address] [address] [address] David Magana Sodium [Moles/Vol] 134 mmol/L Critically low 136-145 Th [facility] Comment on above: Performed By: #### A 1C #### [facility] [address] [place] [address] Dr. David Magana Urea nitrogen [Mass/Vol] 51.0 mg/dL Critically high 7.0-18.0 [facility] Comment on above: Performed By: #### A 1C #### [facility] [address] [place] [address] Dr. David Magana Urea nitrogen/Creatinine [Mass ratio] 28.3 mg/mg [facility] Comment on above: Performed By: #### A 1C #### [facility] [address] [place] [address] Dr. David [facility] MODE NASAL CANNULA Normal [facility] Comment on above: Performed By: #### A 1C #### [facility] [address] [place] [address] Dr. David Magana ALLENS TEST Positive [facility] Comment on above: Performed By: #### A 1C #### [facility] [address] [place] [address] Dr. David Magana Base excess Calc (Bld) [Moles/Vol] -9.0000 mmol/L Critically low -2.0-2.0 [facility] Comment on above: Performed By: #### A 1C #### [facility] [address] [place] [address] Dr. David Magana BIPAP PRESSURE Normal [facility] Comment on above: Performed By: #### A 1C #### [facility] [address] [place] [address] Dr. David Magana CPAP [facility] Comment on above: Performed By: #### A 1C #### [facility] [address] [place] [address] Dr. David Magana FIO2 [facility] Comment on above: Performed By: #### A 1C #### [facility] [address] [address] [address] David Magana HCO3 (Bld) [Moles/Vol] 18.4 mmol/L Critically low 22.0-26.0 [facility] Comment on above: Performed By: #### A 1C #### [facility] [address] [address] [address] David Magana LPM 1.5 Normal [facility] Comment on above: Performed By: #### A 1C #### [facility] [address] [address] [address] David Magana MINUTE VOLUME Normal [facility] Comment on above: Performed By: #### A 1C #### [facility] [address] [place] [address] Dr. David Magana Oxygen (Bld) [Partial pressure] 69.5 mm[Hg] Critically low 80.0-100.0 [facility] Comment on above: Performed By: #### A 1C #### [facility] [address] [place] [address] Dr. David Magana Oxygen saturation in Blood 94.2 % Critically low 95.0-100.0 [facility] Comment on above: Performed By: #### A 1C #### [facility] [address] [place] [address] Dr. David Magana PCO2 29.6 mmHg Critically low 35.0-45.0 [facility] Comment on above: Performed By: #### A 1C #### [facility] [address] [place] [address] Dr. David Magana PEEP [facility] Comment on above: Performed By: #### A 1C #### [facility] [address] [address] [address] David Magana pH (Bld) 7.355 [pH] Normal 7.350-7.450 [facility] Comment on above: Performed By: #### A 1C #### [facility] [address] [place] [address] Dr. David Magana PIP Normal [facility] Comment on above: Performed By: #### A 1C #### [facility] [address] [place] [address] Dr. David Magana PS [facility] Comment on above: Performed By: #### A 1C #### [facility] [address] [place] [address] Dr. David Magana PUNCTURE SITE [facility] Comment on above: Performed By: #### A 1C #### [facility] [address] [place] [address] Dr. David Magana [facility] Comment on above: Performed By: #### A 1C #### [facility] [address] [place] [address] Dr. David Magana VENT MODE [facility] Comment on above: Performed By: #### A 1C #### [facility] [address] [place] [address] Dr. David Magana [facility] Comment on above: Performed By: #### A 1C #### [facility] [address] [place] [address] Dr. David Magana BNPon 07-18-2022 Natriuretic peptide B (Bld) [Mass/Vol] 7047.0 pg/mL Critically high <=1,800.0 [facility] Comment on above: Performed By: #### C VDTBH #### [facility] [address] [place] [address] Dr. David Magana CARDIAC BARRIE 3-6on 2 CK [Catalytic activity/Vol] 396 U/L Critically high 39-308 [facility] Comment on above: Performed By: #### M G, BMP, PHOS #### [facility] [address] [place] [address] Dr. David Magana CK.MB [Mass/Vol] 2.94 ng/mL Normal <=3.60 [facility] Comment on above: Performed By: #### M G, BMP, PHOS #### [facility] [address] [place] [address] Dr. David Magana HSTROP 11.1 pg/mL Normal 4.0-76.1 [facility] Comment on above: Result Comment: CUT- OFF POINTS HAVE BEEN ESTABLISHED BASED ON THE FOURTH UNIVERSAL DEFINITIONS OF MYOCARDIAL INFARCTION. THE UPPER REFERENCE LIMIT (URL) OF TROPONIN, DEFINED THE 99TH PERCENTILE OF cTnI DISTRIBUTION IN A REFERENCE POPULATION, HAS BEEN CONFIRMED THE DECISION THRESHOLD FOR [place] DIAGNOSIS. Performed By: #### M G, BMP, PHOS #### [facility] [address] [place] [address] Dr. David Magana CK [Catalytic activity/Vol] 58 U/L Normal 39-308 [facility] Comment on above: Performed By: #### M G, BMP, PHOS #### [facility] [address] [place] [address] Dr. David Magana CK.MB [Mass/Vol] 1.71 ng/mL Normal <=3.60 [facility] Comment on above: Performed By: #### M G, BMP, PHOS #### [facility] [address] [place] [address] Dr. David Magana HSTROP 10.6 pg/mL Normal 4.0-76.1 [facility] Comment on above: Result Comment: CUT- OFF POINTS HAVE BEEN ESTABLISHED BASED ON THE FOURTH UNIVERSAL DEFINITIONS OF MYOCARDIAL INFARCTION. THE UPPER REFERENCE LIMIT (URL) OF TROPONIN, DEFINED THE 99TH PERCENTILE OF cTnI DISTRIBUTION IN A REFERENCE POPULATION, HAS BEEN CONFIRMED THE DECISION THRESHOLD FOR [place] DIAGNOSIS. Performed By: #### M G, BMP, PHOS #### [facility] [address] [place] [address] Dr. David Magana CBC AUTO DIFFon 07-18-2022 BASO # 0.0 103/ul Normal 0.0-0.1 [facility] Comment on above: Performed By: #### M G, BMP, PHOS #### [facility] [address] [place] [address] Dr. Dvaid Magana Basophils/100 WBC (Bld) 0.2 % Normal 0.2-2.0 [facility] Comment on above: Performed By: #### M G, BMP, PHOS #### [facility] [address] [place] [address] Dr. David Magana EO # 0.0 103/ul Normal 0.0-0.7 [facility] Comment on above: Performed By: #### M ERICK Faith, PHOS #### [facility] [address] [place] [address] Dr. David Magana Eosinophils/100 WBC (Bld) 0.2 % Critically low 0.9-7.0 [facility] Comment on above: Performed By: #### ERICK Jacques, PHOS #### [facility] [address] [place] [address] Dr. David Magana Erythrocyte distribution width (RBC) [Ratio] 13.2 % Normal 11.0-15.0 [facility] Comment on above: Performed By: #### ERICK Jacques, PHOS #### [facility] [address] [place] [address] Dr. David Magana Hematocrit (Bld) [Volume fraction] 43.8 % Normal 42.0-54.0 [facility] Comment on above: Performed By: #### ERICK Jacques, PHOS #### [facility] [address] [place] [address] Dr. David Magana Hemoglobin (Bld) [Mass/Vol] 14.5 g/dL Normal 14.0-18.0 [facility] Comment on above: Performed By: #### ERICK Jacques, PHOS #### [facility] [address] [place] [address] Dr. David Magana IG # 0.15 10e3/ul Critically high 0.00-0.03 [facility] Comment on above: Performed By: #### M ERICK Faith, PHOS #### [facility] [address] [place] [address] Dr. David Magana IG % 1.3 % Critically high 0.0-0.5 [facility] Comment on above: Performed By: #### M ERICK Faith, PHOS #### [facility] [address] [place] [address] Dr. David Magana LYMPH # 0.5 103/ul Critically low 1.2-3.8 [facility] Comment on above: Performed By: #### M G, BMP, PHOS #### [facility] [address] [place] [address] Dr. David Magana Lymphocytes/100 WBC (Bld) 3.8 % Critically low 20.5-60.0 [facility] Comment on above: Performed By: #### M G, BMP, PHOS #### [facility] [address] [place] [address] Dr. David Magana MANUAL DIFF REQ NO Normal [facility] Comment on above: Performed By: #### M G, BMP, PHOS #### [facility] [address] [place] [address] Dr. David Magana MCH (RBC) [Entitic mass] 32.7 pg Normal 25.9-34.0 [facility] Comment on above: Performed By: #### M G, BMP, PHOS #### [facility] [address] [place] [address] Dr. David Magana MCHC (RBC) [Mass/Vol] 33.1 g/dL Normal 29.9-35.2 [facility] Comment on above: Performed By: #### M G, BMP, PHOS #### [facility] [address] [place] [address] Dr. David Magana MCV (RBC) [Entitic vol] 98.9 fL Critically high 80.0-94.0 [facility] Comment on above: Performed By: #### M G, BMP, PHOS #### [facility] [address] [place] [address] Dr. David Magana MONO # 0.7 103/ul Normal 0.3-0.8 [facility] Comment on above: Performed By: #### M G, BMP, PHOS #### [facility] [address] [place] [address] Dr. David Magana Monocytes/100 WBC (Bld) 5.7 % Normal 1.7-12.0 [facility] Comment on above: Performed By: #### M G, BMP, PHOS #### [facility] [address] [place] [address] Dr. David Magana NEUT # 10.4 103/ul Critically high 1.4-6.5 [facility] Comment on above: Performed By: #### ERICK Jacques, PHOS #### [facility] [address] [address] [address] David Magana Neutrophils/100 WBC (Bld) 88.8 % Critically high 43.0-75.0 [facility] Comment on above: Performed By: #### ERICK Jacques, PHOS #### [facility] [address] [address] [address] David Magana Platelet mean volume (Bld) [Entitic vol] 11.0 fL Normal 9.5-13.5 [facility] Comment on above: Performed By: #### ERICK Jacques, PHOS #### [facility] [address] [address] [address] David Magana PLT 198 103/ul Normal 150-450 [facility] Comment on above: Performed By: #### ERICK Jacques, PHOS #### [facility] [address] [address] [address] David Magana RBC 4.43 106/ul Critically low 4.70-6.10 [facility] Comment on above: Performed By: #### ERICK Jacques, PHOS #### [facility] [address] [address] [address] David Magana WBC 11.8 103/ul Critically high 4.0-11.0 [facility] Comment on above: Performed By: #### ERICK Jacques, PHOS #### [facility] [address] [address] [address] HEAD WO CONon [...] FRANCISCO ZELAYA Date: 2022-07-18 05:12 Normal [facility] Covid-19 PCR (CVDTB)on SARS-CoV-2 (COVID-19) RNA SULTANA+probe Ql (Unsp spec) Detected Critically abnormal NOT DETECTED [facility] Comment on above: Result Comment: This test is not yet approved or cleared by the [place] FDA. When there are no FDA-approved or cleared tests available, and other criteria are met, FDA can make tests available under an emergency access mechanism called an Emergency Use Authorization (EUA). The EUA for this test is supported by the [place] of Health and Human Service's declaration that [...] used). Performed By: #### C VDTBH #### [facility] [address], [place] [address] Dr. David Magana D-DIMERon 07-18-2022 D-DIMER 1.69 mg/L FEU Critically high <=0.59 [facility] Comment on above: Performed By: #### C BC #### [facility] [address], [place] [address] Dr. David Magana D-DIMER COMMENTS SEE BELOW Normal [facility] Comment on above: Result [...] hospitalization. Performed By: #### C BC #### [facility] [address] [place] [address] Dr. David Magana POINT OF CARE GLUCOSEon Glucose [Mass/Vol] 329 mg/dL Critically high 74-106 [facility] Comment on above: Performed By: #### P OCGLUC #### [facility] [address] [place] [address] Dr. David Magana Glucose [Mass/Vol] 354 mg/dL Critically high 74-106 [facility] Comment on above: Performed By: #### P OCGLUC #### [facility] [address] [place] [address] Dr. David Magana PROF 14(COMP METB)on 022 Albumin [Mass/Vol] 3.6 g/dL Normal 3.4-5.0 [facility] Comment on above: Performed By: #### C VDTBH #### [facility] [address] [place] [address] Dr. David Magana Albumin/Globulin [Mass ratio] 1.1 {ratio} Normal [facility] Comment on above: Performed By: #### C VDTBH #### [facility] [address] [place] [address] Dr. David Magana ALP [Catalytic activity/Vol] 67 U/L Normal 46-116 [facility] Comment on above: Performed By: #### C VDTBH #### [facility] [address] [place] [address] Dr. David Magana ALT [Catalytic activity/Vol] 33 U/L Normal 16-63 [facility] Comment on above: Performed By: #### C VDTBH #### [facility] [address] [place] [address] Dr. David Magana Anion gap [Moles/Vol] 23.5 mmol/L Normal [facility] Comment on above: Performed By: #### C VDTBH #### [facility] [address] [address] [address] David Magana AST [Catalytic activity/Vol] 13 U/L Critically low 15-37 [facility] Comment on above: Performed By: #### C VDTBH #### [facility] [address] [address] [address] David Magana Bilirubin [Mass/Vol] 0.6 mg/dL Normal 0.2-1.0 [facility] Comment on above: Performed By: #### C VDTBH #### [facility] [address] [address] [address] David Magana Calcium [Mass/Vol] 8.4 mg/dL Critically low 8.5-10.1 Th [facility] Comment on above: Performed By: #### C VDTBH #### [facility] [address] [place] [address] Dr. David Magana Chloride [Moles/Vol] 93 mmol/L Critically low 98-107 [facility] Comment on above: Performed By: #### C VDTBH #### [facility] [address] [place] [address] Dr. David Magana CO2 [Moles/Vol] 17.9 mmol/L Critically low 21.0-32.0 [facility] Comment on above: Performed By: #### C VDTBH #### [facility] [address] [place] [address] Dr. David Magana Creatinine [Mass/Vol] 2.15 mg/dL Critically high 0.70-1.30 [facility] Comment on above: Performed By: #### C VDTBH #### [facility] [address] [place] [address] Dr. David Magana EGFR-AF GUINEAN 36 mL/min/1.73m2 Critically low >=60 [facility] Comment on above: Performed By: #### C VDTBH #### [facility] [address] [place] [address] Dr. David Magana EGFR-NON AF GUINEAN 30 mL/min/1.73m2 Critically low >=60 [facility] Comment on above: Performed By: #### C VDTBH #### [facility] [address] [address] [address] David Magana Globulin (S) [Mass/Vol] 3.2 g/dL Normal [facility] Comment on above: Performed By: #### C VDTBH #### [facility] [address] [place] [address] Dr. David Magana Glucose [Mass/Vol] 345 mg/dL Critically high 74-106 T [facility] Comment on above: Performed By: #### C VDTBH #### [facility] [address] [place] [address] Dr. David Magana Potassium [Moles/Vol] 5.4 mmol/L Critically high 3.5-5.1 [facility] Comment on above: Performed By: #### C VDTBH #### [facility] [address] [place] [address] Dr. David Magana Performed By: #### K #### [facility] [address] [place] [address] Dr. David Magana Protein [Mass/Vol] 6.8 g/dL Normal 6.4-8.2 [facility] Comment on above: Performed By: #### C VDTBH #### [facility] [address] [place] [address] Dr. David Magana Sodium [Moles/Vol] 129 mmol/L Critically low 136-145 Th [facility] Comment on above: Performed By: #### C VDTBH #### [facility] [address] [place] [address] Dr. David Magana Urea nitrogen [Mass/Vol] 65.0 mg/dL Critically high 7.0-18.0 [facility] Comment on above: Performed By: #### C VDTBH #### [facility] [address] [place] [address] Dr. David Magana Urea nitrogen/Creatinine [Mass ratio] 30.2 mg/mg Normal [facility] Comment on above: Performed By: #### C VDTBH #### [facility] [address] [place] [address] Dr. David Magana UA RANDOM W/MICROSCOPICon BACTERIA NONE SEEN Normal NONE SEEN [facility] Comment on above: Performed By: #### M G, BMP, PHOS #### [facility] [address] [place] [address] Dr. David Magana Bilirubin Ql (U) Negative Normal NEGATIVE [facility] Comment on above: Performed By: #### M G, BMP, PHOS #### [facility] [address] [place] [address] Dr. David Magana CAST NONE SEEN Normal NONE SEEN [facility] Comment on above: Performed By: #### M G, BMP, PHOS #### [facility] [address] [place] [address] Dr. David Magana Clarity (U) CLEAR Normal CLEAR [facility] Comment on above: Performed By: #### M Marcell BMP, PHOS #### [facility] [address] [place] [address] Dr. David Magana Color (U) LT. YELLOW Normal YELLOW [facility] Comment on above: Performed By: #### M Marcell BMP, PHOS #### [facility] [address] [place] [address] Dr. David Magana Crystals LM Nom (Urine sed) NONE SEEN Normal NONE SEEN [facility] Comment on above: Performed By: #### M Marcell BMP, PHOS #### [facility] [address] [place] [address] Dr. David Magana Epithelial cells LM Ql (Urine sed) RARE Normal NONE SEEN /RARE [facility] Comment on above: Performed By: #### M G, BMP, PHOS #### [facility] [address] [place] [address] Dr. David Magana Glucose Ql (U) 1000 mg/dl Abnormal NEGATIVE [facility] Comment on above: Performed By: #### M G, BMP, PHOS #### [facility] [address] [place] [address] Dr. David Magana Hemoglobin Ql (U) Negative Normal NEGATIVE [facility] Comment on above: Performed By: #### M G, BMP, PHOS #### [facility] [address] [address] [address] David Magana Ketones Ql (U) 15 mg/dl Abnormal NEGATIVE [facility] Comment on above: Performed By: #### M G, BMP, PHOS #### [facility] [address] [place] [address] Dr. David Magana LEUKOCYTES Negative Normal NEGATIVE [facility] Comment on above: Performed By: #### M G, BMP, PHOS #### [facility] [address] [address] [address] David Magana MUCOUS NONE SEEN Normal NONE SEEN [facility] Comment on above: Performed By: #### M G, BMP, PHOS #### [facility] [address] [place] [address] Dr. David Magana Nitrite Ql (U) Negative Normal NEGATIVE [facility] Comment on above: Performed By: #### M G, BMP, PHOS #### [facility] [address] [place] [address] Dr. David Magana pH (U) 5.5 [pH] Normal 5-9 [facility] Comment on above: Performed By: #### M G, BMP, PHOS #### [facility] [address] [place] [address] Dr. David Magana RBC NONE SEEN Abnormal 0-2 [facility] Comment on above: Performed By: #### M G, BMP, PHOS #### [facility] [address] [place] [address] Dr. David Magana SPEC GRAVITY <=1.005 Abnormal 1.005-<=1.025 [facility] Comment on above: Performed By: #### M G, BMP, PHOS #### [facility] [address] [place] [address] Dr. David Magana UA PROTEIN Negative Normal NEGATIVE/ TRACE [facility] Comment on above: Performed By: #### M G, BMP, PHOS #### [facility] [address] [place] [address] Dr. David Magana Urobilinogen Qn (U) 0.2 {Dionna'U}/dL Normal 0.2 - 1. 0 [facility] Comment on above: Performed By: #### ERICK Jacques PHOS #### [facility] [address] [address] [address] David Magana WBC NONE SEEN Normal NONE SEEN [facility] Comment on above: Performed By: #### ERICK Jacques PHOS #### [facility] [address] [address] [address] David Magana XR CHEST 1 Von [...] with clear lungs. Electronically authenticated by: Yefri MORATAYA Date: 2022-07-18 00:09 Normal [facility] CARDIAC BARRIE ADMITon 022 CK [Catalytic activity/Vol] 61 U/L Normal 39-308 [facility] Comment on above: Performed By: #### C BC #### [facility] [address] [place] [address] Dr. David Magana CK.MB [Mass/Vol] 1.84 ng/mL Normal <=3.60 [facility] Comment on above: Performed By: #### C BC #### [facility] [address] [place] [address] Dr. David Magana HSTROP 9.4 pg/mL Normal 4.0-76.1 [facility] Comment on above: Result Comment: CUT- OFF POINTS HAVE BEEN ESTABLISHED BASED ON THE FOURTH UNIVERSAL DEFINITIONS OF MYOCARDIAL INFARCTION. THE UPPER REFERENCE LIMIT (URL) OF TROPONIN, DEFINED THE 99TH PERCENTILE OF cTnI DISTRIBUTION IN A REFERENCE POPULATION, HAS BEEN CONFIRMED THE DECISION THRESHOLD FOR [place] DIAGNOSIS. Performed By: #### C BC #### [facility] [address] [address] [address] David Magana DUSTIN 533 ng/mL Critically high 16-96 [facility] Comment on above: Performed By: #### C BC #### [facility] [address] [place] [address] Dr. David Magana CBC AUTO DIFFon 07-17-2022 BASO # 0.0 103/ul Normal 0.0-0.1 [facility] Comment on above: Performed By: #### M Marcell BMP, PHOS #### [facility] [address] [place] [address] Dr. David Magana Basophils/100 WBC (Bld) 0.2 % Normal 0.2-2.0 [facility] Comment on above: Performed By: #### M Marcell BMP, PHOS #### [facility] [address] [place] [address] Dr. David Magana EO # 0.0 103/ul Normal 0.0-0.7 [facility] Comment on above: Performed By: #### M Marcell BMP, PHOS #### [facility] [address] [place] [address] Dr. David Magana Eosinophils/100 WBC (Bld) 0.1 % Critically low 0.9-7.0 [facility] Comment on above: Performed By: #### M Marcell BMP, PHOS #### [facility] [address] [place] [address] Dr. David Magana Erythrocyte distribution width (RBC) [Ratio] 13.2 % Normal 11.0-15.0 [facility] Comment on above: Performed By: #### M G, BMP, PHOS #### [facility] [address] [place] [address] Dr. David Magana Hematocrit (Bld) [Volume fraction] 43.1 % Normal 42.0-54.0 [facility] Comment on above: Performed By: #### M G BMP, PHOS #### [facility] [address] [place] [address] Dr. David Magana Hemoglobin (Bld) [Mass/Vol] 14.5 g/dL Normal 14.0-18.0 [facility] Comment on above: Performed By: #### M G, BMP, PHOS #### [facility] [address] [place] [address] Dr. David Magana IG # 0.14 10e3/ul Critically high 0.00-0.03 [facility] Comment on above: Performed By: #### M G, BMP, PHOS #### [facility] [address] [place] [address] Dr. David Magana IG % 1.2 % Critically high 0.0-0.5 [facility] Comment on above: Performed By: #### M G BMP, PHOS #### [facility] [address] [place] [address] Dr. David Magana LYMPH # 0.4 103/ul Critically low 1.2-3.8 [facility] Comment on above: Performed By: #### M Marcell BMP, PHOS #### [facility] [address] [place] [address] Dr. David Magana Lymphocytes/100 WBC (Bld) 3.4 % Critically low 20.5-60.0 [facility] Comment on above: Performed By: #### Jim Faith BMP, PHOS #### [facility] [address] [place] [address] Dr. David Magana MANUAL DIFF REQ NO Normal [facility] Comment on above: Performed By: #### M ERICK Faith, PHOS #### [facility] [address] [place] [address] Dr. David Magana MCH (RBC) [Entitic mass] 33.3 pg Normal 25.9-34.0 [facility] Comment on above: Performed By: #### M G BMP, PHOS #### [facility] [address] [place] [address] Dr. David Magana MCHC (RBC) [Mass/Vol] 33.6 g/dL Normal 29.9-35.2 [facility] Comment on above: Performed By: #### M Marcell BMP, PHOS #### [facility] [address] [address] [address] David Magana MCV (RBC) [Entitic vol] 98.9 fL Critically high 80.0-94.0 [facility] Comment on above: Performed By: #### M G, BMP, PHOS #### [facility] [address] [place] [address] Dr. David Magana MONO # 1.1 103/ul Critically high 0.3-0.8 [facility] Comment on above: Performed By: #### M G, BMP, PHOS #### [facility] [address] [place] [address] Dr. David Magana Monocytes/100 WBC (Bld) 8.9 % Normal 1.7-12.0 [facility] Comment on above: Performed By: #### M G, BMP, PHOS #### [facility] [address] [place] [address] Dr. David Magana NEUT # 10.3 103/ul Critically high 1.4-6.5 [facility] Comment on above: Performed By: #### M Marcell, BMP, PHOS #### [facility] [address] [place] [address] Dr. David Magana Neutrophils/100 WBC (Bld) 86.2 % Critically high 43.0-75.0 [facility] Comment on above: Performed By: #### M Marcell, BMP, PHOS #### [facility] [address] [place] [address] Dr. David Magana Platelet mean volume (Bld) [Entitic vol] 11.1 fL Normal 9.5-13.5 [facility] Comment on above: Performed By: #### M G, BMP, PHOS #### [facility] [address] [place] [address] Dr. David Magana PLT 229 103/ul Normal 150-450 [facility] Comment on above: Performed By: #### M G, BMP, PHOS #### [facility] [address] [place] [address] Dr. David Magana RBC 4.36 106/ul Critically low 4.70-6.10 [facility] Comment on above: Performed By: #### M ERICK Faith, PHOS #### [facility] [address] [address] [address] David Magana WBC 11.9 103/ul Critically high 4.0-11.0 [facility] Comment on above: Performed By: #### M ERICK Faith, PHOS #### [facility] [address] [address] [address] David Magana PROF CHEM 8 (BAS METB)on Anion gap [Moles/Vol] 26.5 mmol/L Normal [facility] Comment on above: Performed By: #### C BC #### [facility] [address] [place] [address] Dr. David Magana Calcium [Mass/Vol] 8.2 mg/dL Critically low 8.5-10.1 [facility] Comment on above: Performed By: #### C BC #### [facility] [address] [address] [address] David Magana Chloride [Moles/Vol] 89 mmol/L Critically low 98-107 [facility] Comment on above: Performed By: #### C BC #### [facility] [address] [place] [address] Dr. David Magana CO2 [Moles/Vol] 14.5 mmol/L Critically low 21.0-32.0 [facility] Comment on above: Performed By: #### C BC #### [facility] [address] [address] [address] David Magana Creatinine [Mass/Vol] 2.78 mg/dL Critically high 0.70-1.30 [facility] Comment on above: Performed By: #### C BC #### [facility] [address] [place] [address] Dr. David Magana EGFR-AF GUINEAN 27 mL/min/1.73m2 Critically low >=60 [facility] Comment on above: Performed By: #### C BC #### [facility] [address] [place] [address] Dr. David Magana EGFR-NON AF GUINEAN 22 mL/min/1.73m2 Critically low >=60 [facility] Comment on above: Performed By: #### C BC #### [facility] [address] [address] [address] David Magana Glucose [Mass/Vol] 442 mg/dL Critically high 74-106 [facility] Comment on above: Performed By: #### C BC #### [facility] [address] [address] [address] David Magana Potassium [Moles/Vol] 6.0 mmol/L Critically high 3.5-5.1 [facility] Comment on above: Performed By: #### C BC #### [facility] [address] [place] [address] Dr. David Magana Sodium [Moles/Vol] 124 mmol/L Critically low 136-145 [facility] Comment on above: Performed By: #### C BC #### [facility] [address] [place] [address] Dr. David Magana Urea nitrogen [Mass/Vol] 73.0 mg/dL Critically high 7.0-18.0 [facility] Comment on above: Performed By: #### C BC #### [facility] [address] [place] [address] Dr. David Magana Urea nitrogen/Creatinine [Mass ratio] 26.3 mg/mg Normal [facility] Comment on above: Performed By: #### C BC #### [facility] [address] [place] [address] Dr. David Magana [facility]16 SARS-CoV-2 (COVID-19) RNA SULTANA+probe Ql (Unsp spec) Detected Critically abnormal NOT DETECTED [facility] Comment on above: Result Comment: This test is not yet approved or cleared by the [place] FDA. When there are no FDA-approved or cleared tests available, and other criteria are met, FDA can make tests available under an emergency access mechanism called an Emergency Use Authorization (EUA). The EUA for this test is supported by the [employer] of Health and Human Service's (HHS's) declaration [...] used). Performed By: #### M Marcell, ERICK, PHOMiroslava #### [facility] [address] [address] [address] David Magana ECHOCARDIO M/2D COMPLETEon 0 07-01-2022 ECHOCARDIO M/2D COMPLETE Patient: NADIR BETH Exam Date: 07/01/2022 : 1940 Gender:M Ordering : DR CLARIBEL CISNEROS M.D. Admission #: [id number] Family : DR PJ YOUSSEF . Order #: [id number] CLICK HERE TO VIEW EXAM ECHOCARDIOGRAM REPORT [...] Traylor M.D. on 07/01/2022 at 16:27 Normal [facility] Covid-19 PCR (CVD[facility])on SARS-CoV-2 (COVID-19) RNA SULTANA+probe Ql (Unsp spec) Not detected Normal NOT DETECTED [facility] Comment on above: Result Comment: [...] for this test is supported by the [place] of Health and Human Service's declaration that [...] used). Performed By: #### C VDTBH #### [facility] [address] [place] [address] Dr. David Magana CREATININE URINEon URINE CREAT 14.70 mg/dL Critically low 20.00-300.00 [facility] Comment on above: Performed By: #### M G, BMP, PHOS #### [facility] [address] [place] [address] Dr. David Magana GLYCOHEMOGLOBIN A1Con 2021 ADA RECOMMENDATION SEE BELOW Normal [facility] Comment on above: Result Comment: ADA RECOMMENDED LIMIT 4.0 - 6.0 ADA THERAPEUTIC TARGET < 7.0 ACTION SUGGESTED > 7.0 Performed By: #### A 1C #### [facility] [address] [place] [address] Dr. David Magana Glucose [Mass/Vol] 209 mg/dL Normal [facility] Comment on above: Performed By: #### A 1C #### [facility] [address] [place] [address] Dr. David Magana HbA1c (Bld) [Mass fraction] 8.9 % Critically high 4.5-6.2 [facility] Comment on above: Performed By: #### A 1C #### [facility] [address] [place] [address] Dr. David Magana MAGNESIUMon 06-08-2022 Magnesium [Mass/Vol] 2.3 mg/dL Normal 1.8-2.4 [facility] Comment on above: Performed By: #### M Marcell, BMP, PHOS #### [facility] [address] [place] [address] Dr. David Magana PHOSPHORUSon 06-08-2022 Phosphate [Mass/Vol] 3.5 mg/dL Normal 2.6-4.7 [facility] Comment on above: Performed By: #### M Marcell BMP, PHOS #### [facility] [address] [place] [address] Dr. David Magana PROF CHEM 8 (BAS METB)on Anion gap [Moles/Vol] 10.6 mmol/L Normal [facility] Comment on above: Performed By: #### M Marcell, BMP, PHOS #### [facility] [address] [place] [address] Dr. David Magana Calcium [Mass/Vol] 9.2 mg/dL Normal 8.5-10.1 [facility] Comment on above: Performed By: #### M Marcell, BMP, PHOS #### [facility] [address] [place] [address] Dr. David Magana Chloride [Moles/Vol] 102 mmol/L Normal 98-107 [facility] Comment on above: Performed By: #### M G, BMP, PHOS #### [facility] [address] [place] [address] Dr. David Magana CO2 [Moles/Vol] 30.1 mmol/L Normal 21.0-32.0 [facility] Comment on above: Performed By: #### M G, BMP, PHOS #### [facility] [address] [place] [address] Dr. David Magana Creatinine [Mass/Vol] 1.70 mg/dL Critically high 0.70-1.30 [facility] Comment on above: Performed By: #### M ERICK Faith, PHOS #### [facility] [address] [place] [address] Dr. David Magana EGFR-AF GUINEAN 47 mL/min/1.73m2 Critically low >=60 [facility] Comment on above: Performed By: #### ERICK Jacques, PHOS #### [facility] [address] [address] [address] David Magana EGFR-NON AF GUINEAN 39 mL/min/1.73m2 Critically low >=60 [facility] Comment on above: Performed By: #### ERICK Jacques, PHOS #### [facility] [address] [place] [address] Dr. David Magana Glucose [Mass/Vol] 197 mg/dL Critically high 74-106 [facility] Comment on above: Performed By: #### ERICK Jacques, PHOS #### [facility] [address] [place] [address] Dr. David Magana Potassium [Moles/Vol] 4.7 mmol/L Normal 3.5-5.1 [facility] Comment on above: Performed By: #### ERICK Jacques, PHOS #### [facility] [address] [place] [address] Dr. David Magana Sodium [Moles/Vol] 138 mmol/L Normal 136-145 [facility] Comment on above: Performed By: #### ERICK Jacques, PHOS #### [facility] [address] [place] [address] Dr. David Magana Urea nitrogen [Mass/Vol] 25.0 mg/dL Critically high 7.0-18.0 [facility] Comment on above: Performed By: #### ERICK Jacques, PHOS #### [facility] [address] [place] [address] Dr. David Magana Urea nitrogen/Creatinine [Mass ratio] 14.7 mg/mg Normal [facility] Comment on above: Performed By: #### M G, BMP, PHOS #### [facility] [address] [place] [address] Dr. David Magana PROTEIN RAND URINEon 022 UR PROT <5.0 Normal <=11.9 [facility] Comment on above: Performed By: #### C REAU, PROTU #### [facility] [address] [place] [address] Dr. David Magana BILIRUBIN CONJUGATED (DIRECT )on 04-28-2022 BILI, CONJUGATED 0.1 mg/dL Normal 0.0-0.2 [facility] Comment on above: Performed By: #### P OCGLUC #### [facility] [address] [place] [address] Dr. David Magana CBC AUTO DIFFon 04-28-2022 BASO # 0.1 103/ul Normal 0.0-0.1 [facility] Comment on above: Performed By: #### C VDTBH #### [facility] [address] [place] [address] Dr. David Magana Basophils/100 WBC (Bld) 0.7 % Normal 0.2-2.0 [facility] Comment on above: Performed By: #### C VDTBH #### [facility] [address] [place] [address] Dr. David Magana EO # 0.5 103/ul Normal 0.0-0.7 [facility] Comment on above: Performed By: #### C VDTBH #### [facility] [address] [place] [address] Dr. David Magana Eosinophils/100 WBC (Bld) 6.7 % Normal 0.9-7.0 [facility] Comment on above: Performed By: #### C VDTBH #### [facility] [address] [place] [address] Dr. David Magana Erythrocyte distribution width (RBC) [Ratio] 13.6 % Normal 11.0-15.0 [facility] Comment on above: Performed By: #### C VDTBH #### [facility] [address] [place] [address] Dr. David Magana Hematocrit (Bld) [Volume fraction] 45.9 % Normal 42.0-54.0 [facility] Comment on above: Performed By: #### C VDTBH #### [facility] [address] [place] [address] Dr. David Magana Hemoglobin (Bld) [Mass/Vol] 14.9 g/dL Normal 14.0-18.0 [facility] Comment on above: Performed By: #### C VDTBH #### [facility] [address] [place] [address] Dr. David Magana IG # 0.03 10e3/ul Normal 0.00-0.03 [facility] Comment on above: Performed By: #### C VDTBH #### [facility] [address] [place] [address] Dr. David Magana IG % 0.4 % Normal 0.0-0.5 [facility] Comment on above: Performed By: #### C VDTBH #### [facility] [address] [place] [address] Dr. David Magana LYMPH # 1.0 103/ul Critically low 1.2-3.8 [facility] Comment on above: Performed By: #### C VDTBH #### [facility] [address] [place] [address] Dr. David Magana Lymphocytes/100 WBC (Bld) 13.4 % Critically low 20.5-60.0 [facility] Comment on above: Performed By: #### C VDTBH #### [facility] [address] [place] [address] Dr. David Magana MANUAL DIFF REQ NO Normal [facility] Comment on above: Performed By: #### C VDTBH #### [facility] [address] [place] [address] Dr. David Magana MCH (RBC) [Entitic mass] 33.8 pg Normal 25.9-34.0 [facility] Comment on above: Performed By: #### C VDTBH #### [facility] [address] [place] [address] Dr. David Magana MCHC (RBC) [Mass/Vol] 32.5 g/dL Normal 29.9-35.2 [facility] Comment on above: Performed By: #### C VDTBH #### [facility] [address] [place] [address] Dr. David Magana MCV (RBC) [Entitic vol] 104.1 fL Critically high 80.0-94.0 [facility] Comment on above: Performed By: #### C VDTBH #### [facility] [address] [place] [address] Dr. David Magana MONO # 0.8 103/ul Normal 0.3-0.8 [facility] Comment on above: Performed By: #### C VDTBH #### [facility] [address] [place] [address] Dr. David Magana Monocytes/100 WBC (Bld) 10.2 % Normal 1.7-12.0 [facility] Comment on above: Performed By: #### C VDTBH #### [facility] [address] [place] [address] Dr. David Magana NEUT # 5.1 103/ul Normal 1.4-6.5 [facility] Comment on above: Performed By: #### C VDTBH #### [facility] [address] [place] [address] Dr. David Magana Neutrophils/100 WBC (Bld) 68.6 % Normal 43.0-75.0 [facility] Comment on above: Performed By: #### C VDTBH #### [facility] [address] [place] [address] Dr. David Magana Platelet mean volume (Bld) [Entitic vol] 11.3 fL Normal 9.5-13.5 [facility] Comment on above: Performed By: #### C VDTBH #### [facility] [address] [place] [address] Dr. David Magana PLT 185 103/ul Normal 150-450 [facility] Comment on above: Performed By: #### C VDTBH #### [facility] [address] [address] [address] David Magana RBC 4.41 106/ul Critically low 4.70-6.10 [facility] Comment on above: Performed By: #### C VDTBH #### [facility] [address] [place] [address] Dr. David Magana WBC 7.5 103/ul Normal 4.0-11.0 [facility] Comment on above: Performed By: #### C VDTBH #### [facility] [address] [place] [address] Dr. David Magana FREE T3on 04-28-2022 FREE T3 2.17 pg/mlL Critically low 2.18-3.98 [facility] Comment on above: Performed By: #### P OCGLUC #### [facility] [address] [place] [address] Dr. David Magana LIPID PROFILEon 04-28-2022 CHOL-HDL RATIO NORM SEE BELOW Normal [facility] Comment on above: Result Comment: 3.3 - 4.4 LOW RISK 4.4 - 7.1 AVERAGE RISK 7.1 - 11.0 MODERATE RISK >11.0 HIGH RISK Performed By: #### P OCGLUC #### [facility] [address] [place] [address] Dr. David Magana Cholesterol [Mass/Vol] 234 mg/dL Critically high <=200 [facility] Comment on above: Performed By: #### P OCGLUC #### [facility] [address] [place] [address] Dr. David Magana Cholesterol in HDL [Mass/Vol] 58 mg/dL Normal 40-60 [facility] Comment on above: Performed By: #### P OCGLUC #### [facility] [address] [address] [address] David Magana Cholesterol in LDL [Mass/Vol] 129.0 mg/dL Normal [facility] Comment on above: Performed By: #### P OCGLUC #### [facility] [address] [place] [address] Dr. David Magana Cholesterol.total/Cho lesterol in HDL [Mass ratio] 4.0 {ratio} Normal [facility] Comment on above: Performed By: #### P OCGLUC #### [facility] [address] [address] [address] David Magana HDL NORMAL > or = 60 mg/dl - LOW CARDIOVASCULAR RISK <40 mg/dl - HIGH CARDIOVASCULAR RISK Normal [facility] Comment on above: Performed By: #### P OCGLUC #### [facility] [address] [address] [address] David Magana LDL CALC NORMAL SEE BELOW Normal [facility] Comment on above: Result Comment: <100 mg/dl OPTIMAL 100 - 129 mg/dl NEAR OR ABOVE OPTIMAL 130 - 159 mg/dl BORDERLINE HIGH 160 - 189 mg/dl HIGH >190 mg/dl VERY HIGH Performed By: #### P OCGLUC #### [facility] [address] [address] [address] David Magana Triglyceride [Mass/Vol] 235 mg/dL Critically high <=150 [facility] Comment on above: Performed By: #### P OCGLUC #### [facility] [address] [address] [address] David Magana VLDL CALC 47.0 mg/dL Normal [facility] Comment on above: Performed By: #### P OCGLUC #### [facility] [address] [address] [address] David Magana PROF 14(COMP METB)on 022 Albumin [Mass/Vol] 3.2 g/dL Critically low 3.4-5.0 Th [facility] Comment on above: Performed By: #### P OCGLUC #### [facility] [address] [address] [address] David Magana Albumin/Globulin [Mass ratio] 0.9 {ratio} Normal [facility] Comment on above: Performed By: #### P OCGLUC #### [facility] [address] [place] [address] Dr. David Magana ALP [Catalytic activity/Vol] 77 U/L Normal 46-116 [facility] Comment on above: Performed By: #### P OCGLUC #### [facility] [address] [address] [address] David Magana ALT [Catalytic activity/Vol] 24 U/L Normal 16-63 [facility] Comment on above: Performed By: #### P OCGLUC #### [facility] [address] [address] [address] David Magana Anion gap [Moles/Vol] 13.1 mmol/L Normal [facility] Comment on above: Performed By: #### P OCGLUC #### [facility] [address] [address] [address] David Magana AST [Catalytic activity/Vol] 13 U/L Critically low 15-37 [facility] Comment on above: Performed By: #### P OCGLUC #### [facility] [address] [address] [address] David Magana Bilirubin [Mass/Vol] 0.3 mg/dL Normal 0.2-1.0 [facility] Comment on above: Performed By: #### P OCGLUC #### [facility] [address] [place] [address] Dr. David Magana Calcium [Mass/Vol] 8.8 mg/dL Normal 8.5-10.1 [facility] Comment on above: Performed By: #### P OCGLUC #### [facility] [address] [place] [address] Dr. David Magana Chloride [Moles/Vol] 106 mmol/L Normal 98-107 [facility] Comment on above: Performed By: #### P OCGLUC #### [facility] [address] [address] [address] David Magana CO2 [Moles/Vol] 27.5 mmol/L Normal 21.0-32.0 [facility] Comment on above: Performed By: #### P OCGLUC #### [facility] [address] [address] [address] David Magana Creatinine [Mass/Vol] 1.62 mg/dL Critically high 0.70-1.30 [facility] Comment on above: Performed By: #### P OCGLUC #### [facility] [address] [address] [address] David Magana EGFR-AF GUINEAN 50 mL/min/1.73m2 Critically low >=60 [facility] Comment on above: Performed By: #### P OCGLUC #### [facility] [address] [address] [address] David Magana EGFR-NON AF GUINEAN 41 mL/min/1.73m2 Critically low >=60 [facility] Comment on above: Performed By: #### P OCGLUC #### [facility] [address] [address] [address] David Magana Globulin (S) [Mass/Vol] 3.4 g/dL Normal [facility] Comment on above: Performed By: #### P OCGLUC #### [facility] [address] [address] [address] David Magana Glucose [Mass/Vol] 206 mg/dL Critically high 74-106 [facility] Comment on above: Performed By: #### P OCGLUC #### [facility] [address] [address] [address] David Magana Potassium [Moles/Vol] 4.6 mmol/L Normal 3.5-5.1 [facility] Comment on above: Performed By: #### P OCGLUC #### [facility] [address] [address] [address] David Magana Protein [Mass/Vol] 6.6 g/dL Normal 6.4-8.2 [facility] Comment on above: Performed By: #### P OCGLUC #### [facility] [address] [address] [address] David Magana Sodium [Moles/Vol] 142 mmol/L Normal 136-145 [facility] Comment on above: Performed By: #### P OCGLUC #### [facility] [address] [address] [address] David Magana Urea nitrogen [Mass/Vol] 26.0 mg/dL Critically high 7.0-18.0 [facility] Comment on above: Performed By: #### P OCGLUC #### [facility] [address] [address] [address] David Magana Urea nitrogen/Creatinine [Mass ratio] 16.0 mg/mg Normal [facility] Comment on above: Performed By: #### P OCGLUC #### [facility] [address] [place] [address] Dr. David Magana T4on 04-28-2022 T4 [Mass/Vol] 7.70 ug/dL Normal 4.50-12.10 [facility] Comment on above: Performed By: #### P OCGLUC #### [facility] [address] [place] [address] Dr. David Magana TSHon 04-28-2022 TSH 2.187 uIU/mL Normal 0.358-3.740 [facility] Comment on above: Performed By: #### P OCGLUC #### [facility] [address] [place] [address] Dr. David Magana TSH RANGE SEE BELOW Normal [facility] Comment on above: Result Comment: <0.3 4 UIU/ml HYPERTHYROID 0.34-5.60 UIU/ml EUTHYROID >5.60 UIU/ml HYPOTHYROID Performed By: #### P OCGLUC #### [facility] [address] [place] [address] Dr. David Magana Vital Signs Date Time Vital Sign Value Performing Clinician Facility 09-14-2024 08: Body height 182.9 cm Blaise Chicas DPM Work Phone: [facility] 09-14-2024 08:19-040 Body mass index (BMI) [Ratio] 39.2 kg/m2 Blaise Chicas DPM Work Phone: [facility] 09-14-2024 08:040 Body weight 131.09 kg Blaise Chicas DPM Work Phone: [facility] 09-14-2024 08:19040 Diastolic blood pressure 79 mm[Hg] Blaise Chicas DPM Work Phone: [facility] 09-14-2024 08:190400 Heart rate 81 /min Blaise Chicas DPM Work Phone: [facility] 09-14-2024 08:19-0400 Systolic blood pressure 128 mm[Hg] Blaise Chicas DPM Work Phone: [facility] 08-08-2024 10:25-0400 Blood Pressure Location MARQUIS NKANSAH-AMANKRA [facility] 08-08-2024 10:25-0400 Diastolic blood pressure 82 mm[Hg] MARQUIS NKANSAH-AMANKRA [facility] 08-08-2024 10:25-0400 Systolic blood pressure 140 mm[Hg] MARQUIS NKANSAH-AMANKRA [facility] 10-14-2023 14:33-0500 Diastolic blood pressure 70 mm[Hg] Nereyda Patricia [facility] 10-14-2023 14:33-0500 Mean blood pressure 93 mm[Hg] Nereyda Patricia [facility] 10-14-2023 14:33-0500 Systolic blood pressure 138 mm[Hg] Nereyda Patricia [facility] 10-14-2023 14:18-0500 Blood Pressure Location Nereyda Patricia [facility] 10-14-2023 14:18-0500 Body temperature 97.88 [degF] Nereyda Patricia [facility] 10-14-2023 14:18-0500 Diastolic blood pressure 73 mm[Hg] Nereyda Patricia [facility] 10-14-2023 14:18-0500 Heart rate 91 /min Nereyda Patricia [facility] 10-14-2023 14:18-0500 Systolic blood pressure 143 mm[Hg] Nereyda Patricia [facility] 10-01-2023 12:13-0500 Diastolic blood pressure 66 mm[Hg] Nereyda Patricia [facility] 10-01-2023 12:13-0500 Mean blood pressure 104 mm[Hg] Nereyda Patricia [facility] 10-01-2023 12:13-0500 Systolic blood pressure 179 mm[Hg] Nereyda Patricia [facility] 10-01-2023 12:10-0500 Blood Pressure Location Nereyda Patricia [facility] 10-01-2023 12:10-0500 Body temperature 98.42 [degF] Nereyda Patricia [facility] 10-01-2023 12:10-0500 Diastolic blood pressure 77 mm[Hg] Nereyda Patricia [facility] 10-01-2023 12:10-0500 Heart rate 81 /min Nereyda Patricia [facility] 10-01-2023 12:10-0500 Respiratory rate 14 /min Nereyda Patricia [facility] 10-01-2023 12:10-0500 Systolic blood pressure 168 mm[Hg] Nereyda Patricia [facility] 06-10-2023 10:43-0400 Diastolic blood pressure 64 mm[Hg] Nereyda Patricia [facility] 06-10-2023 10:43-0400 Heart rate 76 /min Nereyda Patricia [facility] 06-10-2023 10:43-0400 Respiratory rate 16 /min Nereyda Patricia [facility] 06-10-2023 10:43-0400 SaO2% (BldA) [Mass fraction] 95 % Nereyda Patricia [facility] 06-10-2023 10:43-0400 Systolic blood pressure 121 mm[Hg] Nereyda Patricia [facility] 04-13-2023 14:19-0400 Diastolic blood pressure 70 mm[Hg] Nereyda Patricia [facility] 04-13-2023 14:19-0400 Mean blood pressure 95 mm[Hg] Nereyda Patricia [facility] 04-13-2023 14:19-0400 Systolic blood pressure 146 mm[Hg] Nereyda Patricia [facility] 04-13-2023 14:15-0400 Blood Pressure Location Nereyda Patricia [facility] 04-13-2023 14:15-0400 Body temperature 97.7 [degF] Nereyda Patricia [facility] 04-13-2023 14:15-0400 Diastolic blood pressure 87 mm[Hg] Nereyda Patricia [facility] 04-13-2023 14:15-0400 Heart rate 70 /min Nereyda Patricia [facility] 04-13-2023 14:15-0400 Systolic blood pressure 150 mm[Hg] Nereyda Patricia [facility] 06-09-2022 10:02-0400 Body temperature 96.98 [degF] Nereyda Donatoz [facility] 06-09-2022 10:02-0400 Diastolic blood pressure 75 mm[Hg] Nereydabruce JoyaPatricia [facility] 06-09-2022 10:02-0400 Heart rate 72 /min Nereydabruce JoyaPatricia [facility] 06-09-2022 10:02-0400 SaO2% (BldA) [Mass fraction] 97 % Nereyda Donatoz [facility] 06-09-2022 10:02-0400 Systolic blood pressure 139 mm[Hg] Nereyda Joyametz [facility] 05-11-2022 11:30-0400 Diastolic blood pressure 102 mm[Hg] Bender SALAM [facility] 05-11-2022 11:30-0400 Heart rate 86 /min Bender SALAM [facility] 05-11-2022 11:30-0400 Respiratory rate 15 /min Bender SALAM [facility] 05-11-2022 11:30-0400 SaO2% (BldA) [Mass fraction] 95 % Bender SALAM [facility] 05-11-2022 11:30-0400 Systolic blood pressure 172 mm[Hg] Bender SALAM [facility] 05-11-2022 11:15-0400 Diastolic blood pressure 88 mm[Hg] Bender SALAM [facility] 05-11-2022 11:15-0400 Heart rate 86 /min Bender SALAM [facility] 05-11-2022 11:15-0400 Respiratory rate 18 /min Bender SALAM [facility] 05-11-2022 11:15-0400 SaO2% (BldA) [Mass fraction] 97 % Bender SALAM [facility] 05-11-2022 11:15-0400 Systolic blood pressure 170 mm[Hg] Bender SALAM [facility] 05-11-2022 11:10-0400 Diastolic blood pressure 108 mm[Hg] Bender SALAM [facility] 05-11-2022 11:10-0400 Heart rate 85 /min Bender SALAM [facility] 05-11-2022 11:10-0400 Respiratory rate 14 /min Bender SALAM [facility] 05-11-2022 11:10-0400 SaO2% (BldA) [Mass fraction] 97 % Bender SALAM [facility] 05-11-2022 11:10-0400 Systolic blood pressure 157 mm[Hg] Bender SALAM [facility] 05-11-2022 11:02-0400 Body temperature 97.34 [degF] Bender SALAM [facility] 05-11-2022 10:27-0400 Blood Pressure Location Bender SALAM [facility] 05-11-2022 10:23-0400 Blood Pressure Location Bender SALAM [facility] 05-11-2022 10:23-0400 Body temperature 98.24 [degF] Napoleon MENDEZ [facility] 03-31-2022 09:53-0400 Blood Pressure Location Nereyda Gomez [facility] 03-31-2022 09:53-0400 Body temperature 97.7 [degF] Nereyda Gomez [facility] 03-31-2022 09:53-0400 Diastolic blood pressure 72 mm[Hg] Nereyda Gomez [facility] 03-31-2022 09:53-0400 Heart rate 73 /min Nereyda Gomez [facility] 03-31-2022 09:53-0400 SaO2% (BldA) [Mass fraction] 96 % Nereyda Gomez [facility] 03-31-2022 09:53-0400 Systolic blood pressure 129 mm[Hg] Nereyda Gomez [facility] Encounters Encounter Date Encounter Type Care Provider Facility Start: 09-25-2024 End: 09-25-2024 ambulatory MARQUIS ADRIAN Facility:[facility] Start: 09-25-2024 End: 09-25-2024 Patient encounter procedure MARQUIS ROANEELAEMMYMYA [facility] Start: 09-14-2024 End: 09-14-2024 Deangelo Chicas DPM Work Phone: [facility] Start: 09-14-2024 End: 09-14-2024 Bamboo flowsheet Blaise Chicas DPM Work Phone: [facility] Start: 09-14-2024 End: 09-14-2024 Patient encounter procedure Blaise Chicas DPM Work Phone: [facility] Comment on above: Verruca plantaris (P rimary Dx); Foot pain, right; Diabetes mellitus due to underlying condition with diabetic polyneuropathy, unspecified whether shelter [facility] use [facility] Pain due to onychomycosis of toenails of both feet Start: 09-14-2024 End: 09-14-2024 ambulatory BLAISE CHICAS Not Available Start: 08-24-2024 End: 08-24-2024 Bambozena Joy MD Work Phone: [facility] Start: 08-24-2024 End: 08-24-2024 Bamguanakitoo tarik Joy MD Work Phone: [facility] Start: 08-24-2024 End: 08-24-2024 Office outpatient visit 15 minutes Rodney Joy MD Work Phone: [facility] Comment on above: Melanocytic nevus of trunk (Primary Dx); Actinic keratosis; Lentigines; Seborrheic keratosis Start: 08-24-2024 End: 08-24-2024 ambulatory RODNEY JOY Not Available Start: 08-22-2024 ambulatory MARQUIS NKANSAH-AMANKRA Facility:[facility] Start: 08-17-2024 [facility] Start: 08-14-2024 End: 08-17-2024 Telephone encounter Barrie Montoya MD Work Phone: [facility] Start: 08-08-2024 End: 08-08-2024 ambulatory MARQUIS ANSAH-AMANKRA Facility:[facility] Start: 08-08-2024 End: 08-08-2024 Patient encounter procedure MARQUIS CAMPBELL [facility] Start: 08-03-2024 End: 08-03-2024 ambulatory BLAISE A BROWN Not Available Start: 08-01-2024 End: 08-01-2024 ambulatory BARRIE D BEJ Not Available Start: 07-20-2024 End: 07-20-2024 ambulatory BLAISE A BROWN Not Available Start: 07-06-2024 End: 07-06-2024 ambulatory BLAISE A BROWN Not Available Start: 07-05-2024 End: 07-05-2024 ambulatory JEFF [facility] Start: 06-07-2024 End: 06-07-2024 ambulatory URTHIE [facility] Start: 06-05-2024 End: 06-05-2024 ambulatory [facility] Start: 06-01-2024 End: 06-01-2024 ambulatory BLAISE A BROWN Not Available Start: 04-20-2024 End: 04-20-2024 ambulatory BLAISE A BROWN Not Available Start: 03-03-2024 End: 03-03-2024 ambulatory [facility] Start: 02-10-2024 End: 02-10-2024 ambulatory BLAISE A BROWN Not Available Start: 02-02-2024 ambulatory Nereyda A Patricia Facili ty:[facility] Start: 01-11-2024 End: 01-11-2024 ambulatory BARRIE D BEJ Not Available Start: 12-09-2023 ambulatory Nereyda A Patricia Facili ty:[facility] Start: 12-02-2023 End: 12-02-2023 ambulatory BLAISE A BROWN Not Available Start: 11-17-2023 End: 11-17-2023 ambulatory DANA [facility] Start: 10-14-2023 End: 10-14-2023 ambulatory Nereyda A Patricia Facility:[facility] Start: 10-14-2023 End: 10-14-2023 Patient encounter procedure Nereyda Joyametz [facility] Start: 10-01-2023 End: 10-01-2023 Patient encounter procedure Nereyda Joyametz [facility] Start: 10-01-2023 End: 10-01-2023 Patient encounter procedure Nereyda Joyametz [facility] Start: 09-17-2023 End: 09-17-2023 ambulatory [facility] Start: 09-13-2023 End: 09-13-2023 Patient encounter procedure Nereyda Joyametz [facility] Start: 08-31-2023 End: 08-31-2023 ambulatory [facility] Start: 07-21-2023 End: 07-21-2023 ambulatory [facility] Start: 06-10-2023 End: 06-10-2023 Patient encounter procedure Nereyda Joyametz [facility] Start: 04-15-2023 End: 04-15-2023 Lab Drop off Nereyda Joyametz [facility] Start: 04-13-2023 End: 04-13-2023 Patient encounter procedure Nereyda Joyametz [facility] Start: 03-24-2023 End: 03-25-[address] RUTHIE LINDA Facility:[facility] Start: 02-27-2023 End: 02-28-[address] PJ YOUSSEF . Facility:[facility] Start: 12-28-2022 End: 12-29-[address] RUTHIE LINDA Facility:[facility] Start: 11-16-2022 End: 11-17-[address] RUTHIE LINDA Facility:[facility] Start: 11-02-2022 End: 11-03-[address] PJ YOUSSEF . Facility:[facility] Start: 07-18-2022 End: 07-22-2022 Evaluation and management of inpatient DR PJ YOUSSEF . Facility:[facility] Start: 07-13-2022 End: 07-13-[address] PJ YOUSSEF . Facility:[facility] Start: 07-01-2022 End: 07-02-[address] CLARIBEL CISNEROS Facility:[facility] Start: 06-16-2022 End: 06-16-[address] PJ YOUSSEF . Facility:[facility] Start: 06-09-2022 End: 06-09-2022 Patient encounter procedure Nereyda Gomez [facility] Start: 06-08-2022 End: 06-09-2022 ambulatory GAMALIEL DALEY Facility:[facility] Start: 05-11-2022 End: 05-11-2022 Patient encounter procedure Napoleon MENDEZ [facility] Start: 04-28-2022 End: 04-29-[address] PJ YOUSSEF . Facility:[facility] Start: 03-31-2022 End: 03-31-2022 Patient encounter procedure Nereyda Gomez [facility] Start: 2019 End: 02-07-2019 Patient encounter procedure DEFAULT PHYSICIAN Facility:[facility] Procedures Date Procedure Procedure Detail Performing Clinician Start: 08-24-2024 CRYOTHERAPY SKIN LESION Rodney Joy MD Work Phone: Start: 05-11-2022 Colonoscopy Napoleon Fernandez Comment on above: 2 polyps, diveticulo sis, IH Start: 01-11-2017 Cardioversion Nereyda Modi nmetz Back structure, excl uding neck (body structure) Nereyda Gomez Cholecystectomy Nereyda mcdonough Colonoscopy Nereyda Gomez History of hernia repair Ave Gomez Tonsillectomy Nereyda Gomez Plan of Treatment Date Care Activity Detail Author Start: 08-23-2025 End: 08-23-2025 Patient encounter procedure 08/23/2025 10:50 AM EDT Office Visit [facility] [address] [place] [address] Rodney Joy MD [address] [place] [address] [facility] Start: 11-30-2024 End: 11-30-2024 Patient encounter procedure 11/30/2024 8:40 AM EST Office Visit [facility] [address] [facility] [address] [place] [address] Blaise Chicas, DPM [address] [facility] [address] [place] [address] [facility] Start: 10-10-2024 End: 10-10-2024 Patient encounter procedure 10/10/2024 10:45 AM EST Office Visit [facility] [address] [place] [address] Barrie Montoya MD [address] [facility] [address] [place], [place] [id number] [facility] Start: 09-14-2024 End: 09-14-2024 Patient encounter procedure [facility] Comment on above: Verruca plantaris (P rimary Dx); Foot pain, right; Diabetes mellitus due to underlying condition with diabetic polyneuropathy, unspecified whether shelter insulin use ([facility]); Pain due to onychomycosis of toenails of both feet Start: 08-24-2024 End: 08-24-2024 Patient encounter procedure [facility] Comment on above: Arrived Start: 07-16-2024 Influenza vaccination Influenza Vacc ine (#1) [facility] Immunizations Immunization Date Immunization Notes [facility] Provider [facility] influenza virus vaccine, unspecified formulation Barrie Montoya MD Work Phone: [facility] 10-21-2022 SARS-CoV-2 (COVID-19 ) [id number] Nereyda Gomez [facility] Comment on above: Result Comment: 2022: [id number] 08-26-2021 SARS-CoV-2 (COVID-19 ) mRNA BNT-162b2 vax Nereyda Gomez [facility] 01-01-2021 SARS-CoV-2 (COVID-19 ) mRNA BNT-162b2 vax Nereyda Patricia [facility] 12-09-2020 SARS-CoV-2 (COVID-19 ) mRNA BNT-162b2 vax Nereyda Joyametz [facility] 08-27-2020 influenza virus vaccine, unspecified formulation Nereyda Gomez [facility] 08-16-2017 pneumococcal conjugate vaccine, 13 valent Nereyda Gomez [facility] 08-05-2017 influenza, unspecified formulation Nereyda Gomez [facility] 09-20-2015 zoster vaccine, live Nereyda [facility] NEGATED: Highlighted row has not occurred!10-13-2023 influenza virus vaccine, unspecified formulation Nereyda Gomez [facility] NEGATED: Highlighted row has not occurred!09-29-2023 influenza virus vaccine, unspecified formulation Nereyda Gomez [facility] Payers Date Payer Category Payer Private Health Insurance [employer] [place] [id number] [id number] 2022 Unknown 2005 Unknown [id number] 2004 Medicare [id number] 1959 Medicare [id number] 1939 Unknown [id number] 2.16.840.1.525509.3.579.2 .647 1939 Unknown [id number] 2.16.840.1.427282.3.579.2 .593 1939 Unknown [id number] 2.16.840.1.616253.3.579.2 .593 1939 Unknown [id number] 2.16.840.1.874574.3.579.2 .593 1939 Unknown [id number] 2.16.840.1.908991.3.579.2 .593 1939 Unknown [id number] 2.16.840.1.157267.3.579.2 .593 1939 Unknown [id number] 2.16.840.1.110155.3.579.2 .593 1939 Unknown [id number] 2.16.840.1.977160.3.579.2 .593 1939 Unknown [id number] 2.16.840.1.913111.3.579.2 .593 1939 Unknown [id number] 2.16.840.1.712479.3.579.2 .593 1939 Unknown [id number] 2.16.840.1.216957.3.579.2 .593 1939 Unknown [id number] 2.16.840.1.080376.3.579.2 .593 1939 Unknown [id number] 2.16840.1.018616.3.579.2 .1259 1939 Unknown [id number] 2.16840.1.018165.3.579.2 .1259 1939 Unknown [id number] 2.16840.1.861131.3.579.2 .1259 1939 Unknown [id number] 2.16.840.1.680414.3.579.2 .1259 1939 Unknown [id number] 2.16.840.1.851431.3.579.2 .1259 1939 Unknown [id number] 2.16.840.1.837141.3.579.2 .1259 1939 Unknown [id number] 2.16.840.1.495834.3.579.2 .1259 1939 Unknown [id number] 2.16.840.1.037207.3.579.2 .1259 1939 Unknown [id number] 2.16.840.1.161360.3.579.2 .1259 1939 Unknown [id number] 2.16.840.1.691163.3.579.2 .1259 1939 Unknown [id number] 2.16.840.1.270819.3.579.2 .1259 1939 Unknown [id number] 2.16.840.1.993577.3.579.2 .727 1939 Unknown [id number] 2.16.840.1.223710.3.579.2 .727 1939 Unknown [id number] 2.16.840.1.450380.3.579.2 .727 1939 Unknown [id number] 2.16.840.1.252345.3.579.2 .727 1939 Unknown [id number] 2.16.840.1.593332.3.579.2 .727 1939 Unknown [id number] 2.16.840.1.630896.3.579.2 .727 Social History Date Type Detail Facility Start: 03-31-2022 End: 08-08-2024 Tobacco smoking status Ex-smoker (finding) [facility] Tobacco smoking status Never [facility] Start: 08-24-2024 Sex Assigned At Male F [facility] Start: 08-24-2023 [facility] Start: 08-03-2024 End: 09-14-2024 Alcoholic beverage intake Lifetime non-drinker (finding) [facility] [...] Healthcare Functional Status Date Assessment Result Facility 09-25-2024 Functional Status N/A [facility] 08-08-2024 Functional Status N/A [facility] 10-14-2023 Functional Status N/A [facility] 10-01-2023 Functional Status No [facility] 04-13-2023 Functional Status N/A [facility] 06-09-2022 Functional Status N/A [facility] 05-11-2022 Functional Status N/A [facility] Clinical Notes 03-31-2022 to 10-02-2024 Note Date & Type Note Facility 10-02-2024 Note Patient Education Urology Benign Prostatic Hyperplasia Benign prostatic hyperplasia (BPH) is an enlarged prostate gland that is caused by the normal aging process. The prostate may get bigger as a man gets older. The condition is not caused by cancer. The prostate is a walnut-sized gland that is involved in the production of semen. It is located in front of the rectum and below the bladder. The bladder stores urine. The urethra carries stored urine out of the body. An enlarged prostate can press on the urethra. This can make it harder to pass urine. The buildup of urine in the bladder can cause infection. Back pressure and infection may progress to bladder damage and kidney (renal) failure. What are the causes? This condition is part of the normal aging process. However, not all men develop problems from this condition. If the prostate enlarges away from the urethra, urine flow will not be blocked. If it enlarges toward the urethra and compresses it, there will be problems passing urine. What increases the risk? This condition is more likely to develop in men older than 50 years. What are the signs or symptoms? Symptoms of this condition include: ??? Getting up often during the night to urinate. ??? Needing to urinate frequently during the day. ??? Difficulty starting urine flow. ??? Decrease in size and strength of your urine stream. ??? Leaking (dribbling) after urinating. ??? Inability to pass urine. This needs immediate treatment. ??? Inability to completely empty your bladder. ??? Pain when you pass urine. This is more common if there is also an infection. ??? Urinary tract infection (UTI). How is this diagnosed? This condition is diagnosed based on your medical history, a physical exam, and your symptoms. Tests will also be done, such as: ??? A post-void bladder scan. This measures any amount of urine that may remain in your bladder after you finish urinating. ??? A digital rectal exam. In a rectal exam, your health care provider checks your prostate by putting a lubricated, gloved finger into your rectum to feel the back of your prostate gland. This exam detects the size of your gland and any abnormal lumps or growths. ??? An exam of your urine (urinalysis). ??? A prostate specific antigen (PSA) screening. This is a blood test used to screen for prostate cancer. ??? An ultrasound. This test uses sound waves to electronically produce a picture of your prostate gland. Your health care provider may refer you to a specialist in kidney and prostate diseases (urologist). How is this treated? Once symptoms begin, your health care provider will monitor your condition (active surveillance or watchful waiting). Treatment for this condition will depend on the severity of your condition. Treatment may include: ??? Observation and yearly exams. This may be the only treatment needed if your condition and symptoms are mild. ??? Medicines to relieve your symptoms, including: ? Medicines to shrink the prostate. ? Medicines to relax the muscle of the prostate. ??? Surgery in severe cases. Surgery may include: ? Prostatectomy. In this procedure, the prostate tissue is removed completely through an open incision or with a laparoscope or robotics. ? Transurethral resection of the prostate (TURP). In this procedure, a tool is inserted through the opening at the tip of the penis (urethra). It is used to cut away tissue of the inner core of the prostate. The pieces are removed through the same opening of the penis. This removes the blockage. ? Transurethral incision (TUIP). In this procedure, small cuts are made in the prostate. This lessens the prostate's pressure on the urethra. ? Transurethral microwave thermotherapy (TUMT). This procedure uses microwaves to create heat. The heat destroys and removes a small amount of prostate tissue. ? Transurethral needle ablation (TUNA). This procedure uses radio frequencies to destroy and remove a small amount of prostate tissue. ? Interstitial laser coagulation (ILC). This procedure uses a laser to destroy and remove a small amount of prostate tissue. ? Transurethral electrovaporization (TUVP). This procedure uses electrodes to destroy and remove a small amount of prostate tissue. ? Prostatic urethral lift. This procedure inserts an implant to push the lobes of the prostate away from the urethra. Follow these instructions at home: ??? Take oada-mri-kqengct and prescription medicines only as told by your health care provider. ??? Monitor your symptoms for any changes. Contact your health care provider with any changes. ??? Avoid drinking large amounts of liquid before going to bed or out in public. ??? Avoid or reduce how much caffeine or alcohol you drink. ??? Give yourself time when you urinate. ??? Keep all follow-up visits. This is important. Contact a health care provider if: ??? You have unexplained back pain. ??? Your symptoms do not get (more content not included)... [facility] 09-25-2024 Hospital Discharge instructions Patient Education 09/25/2024 13:21:41 Benign Prostatic Hyperplasia Benign Prostatic Hyperplasia Benign prostatic hyperplasia (BPH) is an enlarged prostate gland that is caused by the normal aging process. The prostate may get bigger as a man gets older. The condition is not caused by cancer. The prostate is a walnut-sized gland that is involved in the production of semen. It is located in front of the rectum and below the bladder. The bladder stores urine. The urethra carries stored urine out of the body. An enlarged prostate can press on the urethra. This can make it harder to pass urine. The buildup of urine in the bladder can cause infection. Back pressure and infection may progress to bladder damage and kidney (renal) failure. What are the causes? This condition is part of the normal aging process. However, not all men develop problems from this condition. If the prostate enlarges away from the urethra, urine flow will not be blocked. If it enlarges toward the urethra and compresses it, there will be problems passing urine. What increases the risk? This condition is more likely to develop in men older than 50 years. What are the signs or symptoms? Symptoms of this condition include: Getting up often during the night to urinate. Needing to urinate frequently during the day. Difficulty starting urine flow. Decrease in size and strength of your urine stream. Leaking (dribbling) after urinating. Inability to pass urine. This needs immediate treatment. Inability to completely empty your bladder. Pain when you pass urine. This is more common if there is also an infection. Urinary tract infection (UTI). How is this diagnosed? This condition is diagnosed based on your medical history, a physical exam, and your symptoms. Tests will also be done, such as: A post-void bladder scan. This measures any amount of urine that may remain in your bladder after you finish urinating. A digital rectal exam. In a rectal exam, your health care provider checks your prostate by putting a lubricated, gloved finger into your rectum to feel the back of your prostate gland. This exam detects the size of your gland and any abnormal lumps or growths. An exam of your urine (urinalysis). A prostate specific antigen (PSA) screening. This is a blood test used to screen for prostate cancer. An ultrasound. This test uses sound waves to electronically produce a picture of your prostate gland. Your health care provider may refer you to a specialist in kidney and prostate diseases (urologist). How is this treated? Once symptoms begin, your health care provider will monitor your condition (active surveillance or watchful waiting). Treatment for this condition will depend on the severity of your condition. Treatment may include: Observation and yearly exams. This may be the only treatment needed if your condition and symptoms are mild. Medicines to relieve your symptoms, including: ?Medicines to shrink the prostate. ?Medicines to relax the muscle of the prostate. Surgery in severe cases. Surgery may include: ?Prostatectomy. In this procedure, the prostate tissue is removed completely through an open incision or with a laparoscope or robotics. ?Transurethral resection of the prostate (TURP). In this procedure, a tool is inserted through the opening at the tip of the penis (urethra). It is used to cut away tissue of the inner core of the prostate. The pieces are removed through the same opening of the penis. This removes the blockage. ?Transurethral incision (TUIP). In this procedure, small cuts are made in the prostate. This lessens the prostate's pressure on the urethra. ?Transurethral microwave thermotherapy (TUMT). This procedure uses microwaves to create heat. The heat destroys and removes a small amount of prostate tissue. ?Transurethral needle ablation (TUNA). This procedure uses radio frequencies to destroy and remove a small amount of prostate tissue. ?Interstitial laser coagulation (ILC). This procedure uses a laser to destroy and remove a small amount of prostate tissue. ?Transurethral electrovaporization (TUVP). This procedure uses electrodes to destroy and remove a small amount of prostate tissue. ?Prostatic urethral lift. This procedure inserts an implant to push the lobes of the prostate away from the urethra. Follow these instructions at home: Take wtja-fzm-biakkwc and prescription medicines only as told by your health care provider. Monitor your symptoms for any changes. Contact your health care provider with any changes. Avoid drinking large amounts of liquid before going to bed or out in public. Avoid or reduce how much caffeine or alcohol you drink. Give yourself time when you urinate. Keep all follow-up visits. This is important. Contact a health care provider if: You have unexplained back pain. Your symptoms do not get better with treatment. You develop side effects from the medicine you are taking. Your urine becomes very dark or has a bad smell. Your lower abdomen becomes distended and you have trouble passing urine. Get help right away if: You have a fever or chills. You suddenly cannot urinate. You feel light-headed or very dizzy, or you faint. There are large amounts of blood or clots in your urine. Your urinary problems become hard to manage. You develop moderate to severe low back or flank pain. The flank is the side of your body between the ribs and the hip. These symptoms may be an emergency. Get help right away. Call 911. Do not wait to see if the symptoms will go away. Do not drive yourself to the hospital. Summary Benign prostatic hyperplasia (BPH) is an enlarged prostate that is caused by the normal aging process. It is not caused by cancer. An enlarged prostate can press on the urethra. This can make it hard to pass urine. This condition is more likely to develop in men older than 50 years. Get help right away if you suddenly cannot urinate. This information is not intended to replace advice given to you by your health care provider. Make sure you discuss any questions you have with your health care provider. Document Revised: 05/20/2022 Document Reviewed: 05/20/2022 [employer] Patient Education 2023 [employer]. Follow Up Care 09/01/2024 09:55:03 With:MARQUIS CAMPBELL Address: [place] [address]- [phone] Business (1) When: Unknown Comments:Follow-up in the office in 2 weeks to discuss next plan With:MARQUIS CAMPBELL Address: [place] [address]- [phone] Business (1) When: Unknown [facility] 09-25-2024 Evaluation + Plan note Extrac fernando from: Title:Cysto, TRUS Author:CHRISSIE CAMPBELL MD Date:09/25/24 Impression and Plan Counseled: Family. Future Appointments Appointment Date:10/02/2024 11:00:00 AM Scheduled Provider:MARQUIS CAMPEBLL MD Location:[facility] Appointment Type:URO Office Visit Future Scheduled Tests Laboratory* CBC w/ Auto Diff 10/01/23 * Comprehensive Metabolic Panel 10/01/23 * Thyroid Stimulating Hormone 10/01/23 [facility] [id number] NotePatient Education Urology Benign Prostatic Hyperplasia Benign prostatic hyperplasia (BPH) is an enlarged prostate gland that is caused by the normal agingprocess. The prostate may get bigger as a man gets older. The condition is not caused by cancer. The prostate is a walnut-sized gland that is involved in the production of semen. It is located in front of the rectum and below the bladder. The bladder stores urine. The urethra carries stored urine ou t of the body. An enlarged prostate can press on the urethra. This can make it harder to pass urine. The buildup of urine in the bladder can cause infection. Back pressure and infection may progress to bladder damage and kidney (renal) failure. What are the causes? This condition is part of the normal aging process. However, not all men develop problems from thiscondition. If the prostate enlarges away from the urethra, urine flow will not be blocked. If it enlarges toward the urethra and compresses it, there will be problems passing urine. What increases the risk? This condition is more likely to develop in men older than 50 years. What are the signs or symptoms? Symptoms of this condition include: ??? Getting up often during the night to urinate. ??? Needing to urinate frequently during the day. ??? Difficulty starting urine flow. ??? Decrease in size and strength of your urine stream. ??? Leaking (dribbling) after urinating. ??? Inability to pass urine. This needs immediate treatment. ??? Inability to completely empty your bladder. ??? Pain when you pass urine. This is more common if there is also an infection. ??? Urinary tract infection (UTI). How is this diagnosed? This condition is diagnosed based on your medical history, a physical exam, and your symptoms. Tests will also be done, such as: ??? A post-void bladder scan. This measures any amount of urine that may remain in your bladder after you finish urinating. ??? A digital rectal exam. In a rectal exam, your health care provider checks your prostate by putting a lubricated, gloved finger into your rectum to feel the back of your prostate gland. This exam detects the size of your gland and any abnormal lumps or growths. ??? An exam of your urine (urinalysis). ??? A prostate specific antigen (PSA) screening. This is a blood test used to screen for prostate cancer. ??? An ultrasound. This test uses sound waves to electronically produce a picture of your prostate gland. Your health care provider may refer you to a specialist in kidney and prostate diseases (urologist). How is this treated? Once symptoms begin, your health care provider will monitor your condition (active surveillance or watchful waiting). Treatment for this condition will depend on the severity of your condition. Treatment may include: ??? Observation and yearly exams. This may be the only treatment needed if your condition and symptoms are mild. ??? Medicines to relieve your symptoms, including: ? Medicines to shrink the prostate. ? Medicines to relax the muscle of the prostate. ??? Surgery in severe cases. Surgery may include: ? Prostatectomy. In this procedure, the prostate tissue is removed completely through an open incision or with a laparoscope or robotics. ? Transurethral resection of the prostate (TURP). In this procedure, a tool is inserted through theopening at the tip of the penis (urethra). It is used to cut away tissue of the inner core of the prostate. The pieces are removed through the same opening of the penis. This removes the blockage. ? Transurethral incision (TUIP). In this procedure, small cuts are made in the prostate. This lessens the prostate's pressure on the urethra. ? Transurethral microwave thermotherapy (TUMT). This procedure uses microwaves to create heat. The heat destroys and removes a small amount of prostate tissue. ? Transurethral needle ablation (TUNA). This procedure uses radio frequencies to destroy and removea small amount of prostate tissue. ? Interstitial laser coagulation (ILC). This procedure uses a laser to destroy and remove a small amount of prostate tissue. ? Transurethral electrovaporization (TUVP). This procedure uses electrodes to destroy and remove a small amount of prostate tissue. ? Prostatic urethral lift. This procedure inserts an implant to push the lobes of the prostate awayfrom the urethra. Follow these instructions at home: ??? Take bihh-ktg-zakthzl and prescription medicines only as told by your health care provider. ??? Monitor your symptoms for any changes. Contact your health care provider with any changes. ??? Avoid drinking large amounts of liquid before going to bed or out in public. ??? Avoid or reduce how much caffeine or alcohol you drink. ??? Give yourself time when you urinate. ??? Keep all follow-up visits. This is important. Contact a health care provider if: ??? You have unexplained back pain. ??? Your symptoms do not get (more content not included)...[facility]10-31-2024 History of Present illness Narrative* Blaise Chicas DPM - 09/14/2024 8:40 AM EDT Patient: Nadir Beth : 1940 PCP: Pj Youssef MD SUBJECTIVE Nadir Hamilton Kirit 84 y.o. presents today for follow up of skin lesion/neoplasm of unknown origin to the right foot Pt states that previous treatment of acid tx with some improvement Pt rates pain the pain on a 1-10 scale an intensity of 2 Pt presents today for followup. Patient is DM2 Patient presents today with a CC of elongated, thick nails. Pt states nails have been elongated and thick for many years and cause pain with ambulation in shoegear. Pt has tried previous treatment with minimal relief. Pt presents today for nail care and treatment. He is dm2 Allergies: Allergies Allergen Reactions Iodinated Contrast Media Other Reaction(s): Unknown Nitroglycerin Other Reaction(s): Not available, Unknown Statins Other Reaction(s): elevated liver enzymes, Unknown Past Medical History: Past Medical History: Diagnosis Date Actinic keratosis Basal cell carcinoma COVID-19 11/22/2020 Diabetes (CMS/HCC) Medications: Current Outpatient Medications: acyclovir (Zovirax) 400 MG tablet, Take 1 tablet twice a day by oral route for 30 days., Disp: , Rfl: alogliptin (Nesina) 25 MG tablet, Take 1 tablet by mouth in the morning., Disp: , Rfl: ALPRAZolam (Xanax) 0.25 MG tablet, every 12 (twelve) hours., Disp: , Rfl: apixaban (Eliquis) 2.5 MG tablet, every 12 (twelve) hours., Disp: , Rfl: aspirin 81 MG EC tablet, Take 1 tablet by mouth in the morning., Disp: , Rfl: B-Complex tablet, as directed Orally, Disp: , Rfl: cholecalciferol (Vitamin D-[address]) 25 MCG (1000 UT) tablet, Take 2,000 Units by mouth in the morning., Disp: , Rfl: cloNIDine (Catapres) 0.1 MG tablet, Take 1 tablet by mouth in the morning and 1 tablet before bedtime., Disp: , Rfl: dicyclomine (Bentyl) 10 MG capsule, Take 1 capsule every day by oral route., Disp: , Rfl: DULoxetine (Cymbalta) [address] capsule, Take 1 capsule (20 mg) by mouth at bedtime, Disp: 90 capsule, Rfl: 1 empagliflozin (Jardiance) 25 MG, Take 1 tablet by mouth in the morning., Disp: , Rfl: ezetimibe (Zetia) 10 MG tablet, Take 1 tablet by mouth in the morning., Disp: , Rfl: ezetimibe (Zetia) 10 MG tablet, Take 10 mg by mouth in the morning., Disp: , Rfl: ferrous sulfate 325 (65 Fe) MG tablet, Take 1 tablet by mouth in the morning and 1 tablet before bedtime., Disp: , Rfl: glimepiride (Amaryl) 4 MG tablet, Take 1 tablet by mouth in the morning and 1 tablet before bedtime., Disp: , Rfl: KLOR-CON 20 MEQ ER tablet, Take 1 tablet by mouth in the morning and 1 tablet before bedtime., Disp: , Rfl: labetalol (Normodyne) 300 MG tablet, 3 (three) times a day, Disp: , Rfl: Lasix 20 MG tablet, 1 (one) time each day at the same time., Disp: , Rfl: levoFLOXacin (Levaquin) 750 MG tablet, 1 (one) time each day at the same time., Disp: , Rfl: metoclopramide (Reglan) 5 MG tablet, every 12 (twelve) hours, Disp: , Rfl: omeprazole (PriLOSEC) [address] capsule, Take 2 capsules every day by oral route for 90 days., Disp:, Rfl: pioglitazone (Actos) 30 MG tablet, TAKE 1 TABLET BY MOUTH EVERY DAY Oral for 90, Disp: , Rfl: pioglitazone (Actos) 45 MG tablet, TAKE 1 TABLET BY MOUTH EVERY DAY for 90, Disp: , Rfl: prednisoLONE acetate (Pred-Forte) 1 % ophthalmic suspension, INSTILL 1 DROP INTO RIGHT EYE 3 TIMES A DAY DIRECTED, Disp: , Rfl: primidone (Mysoline) 250 MG tablet, 1/2 tab BID, Disp: 90 tablet, Rfl: 1 tamsulosin (Flomax) 0.4 MG 24 hr capsule, Take 1 capsule every day by oral route for 90 days., Disp: , Rfl: Social History: Social History Socioeconomic History Marital status: Spouse name: Not on file Number of children: Not on file Years of education: Not on file Highest education level: Not on file Occupational History Not on file Tobacco Use Smoking status: Former Types: Cigarettes Smokeless tobacco: Never Vaping Use Vaping status: Unknown Substance and Sexual Activity Alcohol use: Never Comment: caffeine 1-2 cups/day Drug use: Never Sexual activity: Defer Other Topics Concern Not on file Social History Narrative Not on file Social Drivers of Health Financial Resource Strain: Not on file Food Insecurity: Not on file Transportation Needs: Not on file Physical Activity: Not on file Stress: Not on file Social Connections: Not on file Intimate Partner Violence: Unknown (01/06/2024) Received from [facility] [place] Safety & Environment Fear of Current or Ex-Partner: Not on file Emotionally Abused: Not on file Physically Abused: Not on file Sexually Abused: Not on file Physically or Sexually Abused: Not on file Housing Stability: Not on file ROS: Gastrointestinal: denies abdominal pain, ulcers, or changes in appetite or bowel habits OBJECTIVE LE EXAM: DERM: Elongated thick yellow crumbly nails digits 1 through 10. Negative hair growth with thin shiny atrophic skin bilaterally. Diminished Dry and scaly skin to bilateral feet with small fissures to heels with negative erythema or drainage +1 pitting edema to bilateral ankles Nummular lesion measuring at the right sub 2nd metatarsal measuring 0.05 cm x 0.05cm. VASC: Negative DP and negative PT pedal pulses NEURO: 5.07 [place] monofilament test diminished to digits and forefoot bilaterally 125Hz tuning fork diminished to 1st MPJ bilaterally ORTHO: Positive pain on palpation to nails 1 through 10 Minimal pain on palpation of right foot lesion ASSESSMENT 1. Verruca plantaris 2. Foot pain, right 3. Diabetes mellitus due to underlying condition with diabetic polyneuropathy, unspecified whether shelter insulin use ([facility]) 4. Pain due to onychomycosis of toenails of both feet PLAN Application of salinocaine acid medication to lesion/lesions located at right foot Informed pt of risks and benefits of procedure including high reoccurence rate, infection, pain andconsent given. Application of DSD post procedure. Patient to follow up of lesion returns and is painful if painful may consider surgical excision on follow up in future Patient education on condition and treatment of condition. Patient to continue with creams feet and advocated twice daily Debride nails in length and thickness digits 1 through 10 Patient educated today on proper diabetic foot care including monitoring feet daily for any signs of infection openings in the skin or irregularities to both feet. Patient had a diabetic neurologicalexam today to both their feet and discussed proper shoe gear Blaise Chicas DPM documented in this encounterSoutheast Missouri [id number] History of Present illness Narrative* Rodney Joy MD - 08/24/2024 10:50 AM EDT Skin Check Location: Patient requests a skin [...] Forehead, Right Hand - Posterior, Right [place], Right Wrist - Posterior Erythematous scaly papules Patient was counseled regarding these sun-induced growths that can develop into squamous cell carcinoma if left untreated. Discussed treatment with cryotherapy. It was emphasized that any treated lesions that fail to resolve should be re- evaluated. Cryotherapy performed today; see procedure note Diagnosis: Actinic keratosis Indication: Precancerous Location: see skin exam Consent: Verbal consent was obtained and risks were discussed, including, but not limited to risks of scarring, darker or molded rubber goods cutter pigmentary changes, recurrence, incomplete removal and infection. [...] Forehead, Right Hand - Posterior, Right [place], Right Wrist - Posterior 3. Lentigines (2) Head - Anterior (Face), Torso - Posterior (Back) Scattered krishnamurthy macules in sun-exposed areas. The patient was informed that lentigines are benign pigmented lesions that occur on sun-exposed andsun-damaged skin. No treatment is necessary. Recommended regular [...] Next Visit: 1 year documented in this encounterSoutheast Missouri [id number] Telephone encounter Note* Telephone Encounter - Sammy Esposito - 08/17/2024 11:54 AM EDT Spoke with advised her of Dr. Montoya's answer and if he had any issues to call back. [facility] [id number] Miscellaneous Notes* Telephone Encounter - Sammy Esposito - 08/17/2024 11:54 AM EDT Spoke with advised her of Dr. Montoya's answer and if he had any issues to call back. * Telephone Encounter - Sammy sEposito - 08/14/2024 11:22 AM EDT called states patient is too sleepy on the Primidone 250 mg that was incr. On 08/01/24 from 50/50/100 to 1/2 pill bid (verbally instructed that, if too sleepy with this AM dose, take 11/18 1/ 1/2 pill). He has decreased to to 1/4, 1/4, 11/16. He is still too sleepy. says he sat down at the table this morning and took his morning dose and shortly there after he fell asleep at the table. documented in this encounterSoutheast Missouri [id number] Telephone encounter Note* Telephone Encounter - Sammy Esposito - 08/14/2024 11:22 AM EDT called states patient is too sleepy on the Primidone 250 mg that was incr. On 08/01/24 from 50/50/100 to 1/2 pill bid (verbally instructed that, if too sleepy with this AM dose, take 11/18 11/18 1/2 pill). He has decreased to to 11/18, 11/18, 11/16. He is still too sleepy. says he sat down at the table this morning and took his morning dose and shortly there after he fell asleep at the table. [facility] [place] [id number] Hospital Discharge instructions Patient Education 08/08/2024 10:44:33 [...] including vitamins, herbs, eye drops, creams, and jrpe-lue-xrlayqd medicines. Any problems you or family members [...] provider tells you to take them. Taking ebjo-tmw-wmdmvek medicines, vitamins, herbs, and supplements. Tests You [...] Follow these instructions at home: Medicines Take ktjl-iiw-apsuehl and prescription medicines only as told by your health care provider. If you were prescribed an antibiotic medicine, take it as told by your health care provider. Do notstop taking the antibiotic even if you start [...] blood in your urine increases, call your healthcare provider. Follow instructions from your health care provider about eating or drinking restrictions. If a tissue sample was removed for testing (biopsy) during your procedure, it is up to you to get your test results. Ask your health care provider, or the department that is doing the test, when yourresults will be ready. Drink enough fluid to [...] blood in your urine increases, call your healthcare provider. If you were prescribed an antibiotic medicine, take it as told by your health care provider. Do notstop taking the antibiotic even if you start to feel better. This information is not intended to replace advice given to you by your health care provider. Make sure you discuss any questions you have with your health care provider. Document Revised: 07/15/2022 Document Reviewed: 06/13/2021 [employer] Patient Education 2023 [employer]. Follow Up Care 08/07/2024 08:55:26 With:MARQUIS CAMPBELL MD, URL Address: When: Unknown [facility] 09-24-2024 NotePatient Education Urology Cystoscopy Cystoscopy is a procedure [...] including vitamins, herbs, eye drops, creams, and ocpd-cob-xyyqxix medicines. ? Any problems you or family [...] tells you to take them. ? Taking rtoo-ccn-pvxbqgb medicines, vitamins, herbs, and supplements. Tests You [...] taken to help prevent infection. These steps mayinclude: ? Washing skin with a germ-killing soap. [...] these instructions at home: Medicines ? Take xghe-trt-mnolmic and prescription medicines only as told by [...] procedure, it is up to you to getyour test results. Ask your health care provider, (more content not included)...[facility] Patient: Nadir Beth; 84 y.o. Visit date: 07/05/24 Reason for today's visit: Follow up for CKD stage 3, Hypertension, Edema/ Fluid overload, and Electrolytes disturbances SUBJECTIVE: BACKGROUND: Nadir Beth is a 84 y.o. male has a past medical history of Atrial fibrillation ([facility]), CHF (congestive heart failure) ([facility]), Chronic kidney disease, COPD (chronic obstructive pulmonary disease) ([facility]), Coronary artery disease, Diabetes mellitus ([facility]), Heart valve disease, Hypertension, Pericardial effusion, and Sleep apnea. History of paroxysmal atrial fibrillation maintained on anticoagulation with Eliquis, aortic stenosis, renal artery stenosis, and hypertension. He had stenting of the left renal artery from the left radial approach on 05/01/2015 (Express SD 6 mm x 18 mm stent). He was admitted to the [facility] in August 2022 due to [...] crush or chew. p (more content not included)...[facility]07-24-2024 Note Attestation signed by Ruthie Linda MD at 06/07/2024 7:40 PM I saw, interviewed, examined and evaluated the patient with Nephrology fellow Dr. Jeff Reyes. I participated in the medical management of the patient. I reviewed the fellow's note and agree with the fellow's documentation in the note. Ruthie Linda MD Faculty, Division of Nephrology, Department of Medicine, [facility]. [facility] Nephrology Clinic Patient: Nadir Beth; 84 y.o. Visit date: 06/07/24 Reason for today's visit: Follow up for CKD stage 3, Hypertension, Edema/ Fluid overload, and Electrolytes disturbances SUBJECTIVE: BACKGROUND: Nadir Beth is a 84 y.o. male has a past medical history of Atrial fibrillation ([facility]), CHF (congestive heart failure) ([facility]), Chronic kidney disease, COPD (chronic obstructive pulmonary disease) ([facility]), Coronary artery disease, Diabetes mellitus ([facility]), Heart valve disease, Hypertension, Pericardial effusion, and Sleep apnea. History of paroxysmal atrial fibrillation maintained on anticoagulation with Eliquis, aortic stenosis, renal artery stenosis, and hypertension. He had stenting of the left renal artery from the left radial approach on 05/01/2015 (Express SD 6 mm x 18 mm stent). He was admitted to the [facility] in August 2022 due to [...] Patient Position: Sitting) Pulse 71 Resp 12 Review of systems In addition to above: [...] cholecalciferol (Vitamin D3) 25 (more content not included)...[facility]07-22-2024 NoteUT Cardiology - [facility] Subjective Nadir Beth is a 84 [...] diuretic therapy. He was admitted to the [facility] in August 2022 due to hyponatremia, hyperkalemia and acute kidney injury, leukocytosis secondary to COVID-19 causing dehydration. I saw him on 05/24/2023 and the office and he had significant evidence of volume overload by exam and echocardiogram. I intensified his diuretic regimen. He ended up getting admitted to the [facility] with acute heart failure exacerbation [...] and 2+ o (more content not included)... [facility]04-19-2024 NoteUT Cardiology - [facility] Subjective Nadir Beth is a 84 [...] extremity edema. He was admitted to the [facility] in August 2022 due to hyponatremia, hyperkalemia and acute kidney injury, leukocytosis secondary to COVID-19 causing dehydration. I saw him on 05/24/2023 and the office and he had significant evidence of volume overload by exam and echocardiogram. I intensified his diuretic regimen. He ended up getting admitted to the [facility] with acute heart failure exacerbation [...] tenderness. Musculoskeletal: General: N (more content not included)...[facility] 11-17-2023 Note Attestation signed by Ruthie Linda MD at 11/21/2023 6:55 PM I saw, interviewed, examined and evaluated the patient with Nephrology fellow, Dr. Dana Aparicio. I participated in the medical management of the patient. I reviewed the fellow's note and agree with the fellow's documentation in the note. Ruthie Linda MD Faculty, Division of Nephrology, Department of Medicine, [facility]. [facility] Ne[facility]rology [facility] Patient: Nadir Beth; 83 y.o. Visit date: 11/17/23 Reason for today's visit: Follow up for CKD stage 3, Hypertension, Edema/ Fluid overload, and Electrolytes disturbances SUBJECTIVE: BACKGROUND: Nadir Beth is a 83 y.o. male has a past medical history of Atrial fibrillation ([facility]), CHF (congestive heart failure) ([facility]), Chronic kidney disease, COPD (chronic obstructive pulmonary disease) ([facility]), Coronary artery disease, Diabetes mellitus ([facility]), Heart valve disease, Hypertension, Pericardial effusion, and Sleep apnea. History of paroxysmal atrial fibrillation maintained on anticoagulation with Eliquis, aortic stenosis, renal artery stenosis, and hypertension. He had stenting of the left renal artery from the left radial approach on 05/01/2015 (Express SD 6 mm x 18 mm stent). He was admitted to the [facility] in August 2022 due to [...] daily. Pertinent labs/images: See Assessment & Plan Review of systems In addition to above: [...] person, place, and time (more content not included)...[facility]11-30-2023 Hospital Discharge instructions Patient Education 10/14/2023 15:05:48 Constipation, Adult Constipation, Adult Constipation is when a person has fewer than three bowel movements in a week, has difficulty havinga bowel movement, or has stools (feces) that are dry, hard, or larger than normal. Constipation maybe caused by an underlying condition. It may [...] go. Do not hold it in. Take yfhd-gio-ebvzhfr and prescription medicines only as told by [...] bowel movements in a week, has difficulty havinga bowel movement, or has stools (feces) that are dry, hard, or larger than normal. Eat foods that have a lot of fiber, such as beans, whole grains, and fresh fruits and vegetables. Drink enough fluid to keep your urine pale yellow. Take kfej-htp-tlgwtkb and prescription medicines only as told by your health care provider. This includes any fiber supplements. This information is not intended to replace advice given to you by your health care provider. Make sure you discuss any questions you have with your health care provider. Document Revised: 09/18/2020 Document Reviewed: 09/18/2020 [employer] Patient Education 2022 [employer]. Follow Up Care 10/01/2023 12:57:46 With:Nereyda Gomez CNP Address: When:1 month [facility] 11-17-2023 Hospital Discharge instructions Patient Education 10/01/2023 12:06:47 [...] the amount of dietary fiber. Choose foods thathave 5 grams of fiber or more per [...] Bulgur wheat. Millet. Quinoa. Bran muffins. Popcorn. [place] wafer crackers. Meats and other proteins [place] beans, kidney beans, and mendez beans. Soybeans. [...] Cream cheese. Sour cream. Fats and oils [place]. Beverages Soft drinks. Other foods Cakes and pastries. The items listed above may not be a complete list of foods and beverages to avoid. Talk with your dietitian about what choices are best for you. Summary Fiber is a type of carbohydrate. It is found in foods such as fruits, vegetables, whole grains, andbeans. A high-fiber diet has many benefits. It can help to prevent constipation, lower blood cholesterol, aid weight loss, and reduce your risk of heart disease, diabetes, and certain cancers. Increase your intake of fiber gradually. Increasing fiber too quickly may cause cramping, bloating,and gas. Drink plenty of water while you [...] provider. Document Revised: 03/06/2021 Document Reviewed: 03/06/2021 [employer] Patient Education 2022 [employer]. Follow Up Care 09/20/2023 08:43:45 With:Nereyda Gomez CNP Address:Unknown When: Unknown [facility] 11-17-2023 Evaluation + Plan note Future Scheduled Tests Laboratory* CBC w/ Auto Diff 10/01/23 * Comprehensive Metabolic Panel 10/01/23 * Thyroid Stimulating Hormone 10/01/23 [facility] 11-03-2023 NoteUT Cardiology [facility] Subjective Nadir Beth is a 83 [...] extremity edema. He was admitted to the [facility] in August 2022 due to hyponatremia, hyperkalemia and acute kidney injury, leukocytosis secondary to COVID-19 causing dehydration. I saw him on 05/24/2023 and the office and he had significant evidence of volume overload by exam and echocardiogram. I intensified his diuretic regimen. He ended up getting admitted to the [facility] with acute heart failure exacerbation [...] Allergies Allergen Reactions Iodinated Contrast Media Nitroglycerin Aeskuhj-Ayc-Qdy Reductase Inhibitors Medications Current Outpatient Medications: (more content not included)...[facility]10-17-2023 NotePatient: Nadir Beth Procedure Information Date/Time: 08/31/23 1300 Procedure: TRANSESOPHAGEAL ECHO (MARK) Location: [facility] Vascular Lab Clinical information reviewed: Allergies Meds Physical Exam Airway Mallampati: III TM distance: >3 FB Cardiovascular Rhythm: regular Rate: normal (+) murmur Dental Pulmonary Breath sounds clear to auscultation Abdominal Abdomen: soft Anesthesia Plan ASA 4 (Conscious sedation) Anesthetic plan and risks discussed with patient. Use of blood products discussed with patient who. [facility]23 Note [place] Cardiology - [facility] Subjective Nadir Beth is a 83 [...] extremity edema. He was admitted to the [facility] in August 2022 due to hyponatremia, hyperkalemia and acute kidney injury, leukocytosis secondary to COVID-19 causing dehydration. I saw him on 05/24/2023 and the office and he had significant evidence of volume overload by exam and echocardiogram. I intensified his diuretic regimen. He ended up getting admitted to the [facility] with acute heart failure exacerbation [...] Allergies Allergen Reactions Iodinated Contrast Media Nitroglycerin Zjyattg-Wpn-Pyk Reductase Inhibitors Medications Current Outpatient Medications: acyclovir [...] tablet every day by (more content not included)...[facility]07-27-2023 Hospital Discharge instructions Patient Education 06/10/2023 10:41:11 Colon Polyps Colon Polyps Colon polyps are tissue growths inside the colon, which is part of the large intestine. They are one of the types of polyps that can grow in the body. A polyp may be a round bump or a mushroom-shapedgrowth. You could have one polyp or more [...] smoking cigarettes, drinking too much alcohol, not gettingenough exercise, and eating a diet that is [...] contain nicotine or tobacco, such as cigarettes, e- cigarettes, and chewing tobacco. If you need help [...] hard liquor (44 mL). General instructions Take eshj-efp-hqdfesu and prescription medicines only as told by [...] provider. Document Revised: 02/19/2021 Document Reviewed: 02/19/2021 ElseSpinNote Patient Education 2022 [employer]. Follow Up Care 04/13/2023 14:39:27 With:Nereyda Gomez CNP Address: When:3 months [facility] 05-30-2023 Hospital Discharge instructions Patient Education 04/13/2023 14:21:04 [...] including vitamins, herbs, eye drops, creams, and rixj-vua-wwfjqsr medicines. Any problems you or family members [...] provider about eating or drinking restrictions, which mayinclude: A few days before the procedure: ?Follow [...] the procedure, or within the time period thatyour health care provider recommends. Bowel prep If you were prescribed a bowel prep to take by mouth (orally) to clean out your colon: Take it as told by your health care provider. Starting the day before your procedure, you will needto drink a large amount of liquid medicine. [...] supplements. This is especially important if you aretaking iron supplements, diabetes medicines, or blood thinners. Taking medicines such as aspirin and ibuprofen. These medicines can thin your blood. Do not take these medicines unless your health care provider tells you to take them. Taking body-ent-niughci medicines, vitamins, herbs, and supplements. General instructions Ask your health care provider what steps will be taken to help prevent infection. These may includewashing skin with a germ-killing soap. If you [...] under a microscope (biopsy). The tissue may besent to a lab for testing if any [...] blood oxygen level will be monitored until youleave the hospital or clinic. You may have a small amount of blood in your stool. You may pass gas and have mild cramping or bloating in your abdomen. This is caused by the air thatwas used to open your colon during the [...] end is inserted into the anus and thenpassed into all parts of the large intestine. This information is not intended to replace advice given to you by your health care provider. Make sure you discuss any questions you have with your health care provider. Document Revised: 10/26/2022 Document Reviewed: 06/24/2022 ElseSpinNote Patient Education 2022 [employer] Follow Up Care 04/09/2023 11:27:16 With:Nereyda Gomez CNP Address: When:1 month [facility] 09-03-2022 NoteEXAM: US CHANI DOP LEG RT DATE: 07/18/2022 [...] in the lower leg. Electronically authenticated by: PREETI ROBERTS Date: 2022-07-18 09:05[facility]07-26-2022 Hospital Discharge instructions Patient Education 06/09/2022 10:13:38 [...] label of any prepackaged food. Look for foodsthat contain 5 g of fiber or more per serving. Talk with a diet and child nutrition director (dietitian) if you have questions about specific [...] Bulgur wheat. Millet. Quinoa. Bran muffins. Popcorn. [place] wafer crackers. Meats and other proteins [place], kidney, and mendez beans. Soybeans. Split peas. [...] Cream cheese. Sour cream. Fats and oils [place]. Beverages Soft drinks. Other foods Cakes and [...] 11/01/2006 Document Revised: 09/05/2018 Document Reviewed: 09/05/2018 [employer] Patient Education 2020 [employer]. 06/09/2022 10:13:34 Hemorrhoids Hemorrhoids Hemorrhoids are swollen [...] help the symptoms, procedures can be done toshrink or remove the hemorrhoids. What are the [...] Other exams or tests may also be done,such as: An exam that involves feeling the [...] do not help your symptoms. These procedures canhelp make the hemorrhoids smaller or remove them completely. Some of these procedures involve surgery, and others do not. Common procedures include: Rubber band ligation. Rubber bands are placed at the base of the hemorrhoids to cut off their bloodsupply. Sclerotherapy. Medicine is injected into the hemorrhoids [...] 3 times a day. General instructions Take bpnr-eom-rtfwvqg and prescription medicines only as told by [...] 10/29/2001 Document Revised: 03/29/2020 Document Reviewed: 03/23/2019 [employer]ancell Patient Education 2020 [employer]. 06/09/2022 10:13:31 Diverticulosis Diverticulosis Diverticulosis is a condition that develops when small pouches (diverticula) form in the wall of the large intestine (colon). The colon is where water is absorbed and stool is formed. The pouches form when the inside layer of the colon pushes through weak spots in the outer layers of the colon. Youmay have a few pouches or many of [...] overweight. Not getting enough exercise. Smoking. Taking hwjs-bnh-arqgndy pain medicines, like aspirin and ibuprofen. Having [...] provider or your diet and child nutrition director (dietitian). ?Take a fiber supplement or probiotic, if your health care provider approves. Take fuzo-kas-cknrynj and prescription medicines only as told by [...] 07/29/2005 Document Revised: 10/14/2018 Document Reviewed: 09/20/2017 [employer] Patient Education 2020 [employer]. 06/09/2022 10:13:30 Colon Polyps Colon Polyps Polyps [...] 07/28/2005 Document Revised: 02/16/2019 Document Reviewed: 02/16/2019 [employer]ancell Patient Education 2020 [employer] Follow Up Care 05/13/2022 14:18:17 With:Nereyda Gomez CNP Address: When:1 year only if needed [facility] [id number] Evaluation + Plan noteExtracted from: Title:Anesthesia post op endo Author:Jeffrey Gr MD Date:05/11/22 Plan Transfer/ Discharge: Patient can be discharged from PACU when criteria met. Condition good. Extracted from: Title:Anesthesia Pre-Op endo 2 Author:Jeffrey Gr MD Date:05/11/22 Plan [place] [employer] Anesthesiologists (ASA) physical status classification: [...] heart and lungs, allergic reactions, and .. [facility]06-27-2022 Hospital Discharge instructions Patient Education 05/11/2022 11:13:39 Colonoscopy, Care After Surgery Vanessa (CUSTOM) Colonoscopy Care After Surgery Please read the instructions outlined below and refer to this sheet in the next few weeks. These discharge instructions provide you with general information on caring [facility] Your doctor may also give you specific [...] 07/28/2005 Document Revised: 02/16/2019 Document Reviewed: 02/16/2019 [employer] Patient Education 2020 [employer]. 05/11/2022 11:13:39 Diverticulosis MAGR (CUSTOM) Diverticulosis Many [...] unsweetened, w/added ascorbic acid 1 cup 0.5 Twiggs 1 cup 0.7 Vegetables Cooked Green beans 1 cup 4.0 Carrots 1/2 cup sliced 2.3 Peas 1 cup 8.8 Potato (baked, with skin) 1 medium potato 3.8 Raw [place] (with peel) 1 cucumber 1.5 Lettuce 1 [...] Peanuts 1/2 cup 7.9 Chart from [facility] 2013. SEEK IMMEDIATE MEDICAL CARE IF: [...] Reference. Available at http://www.nal.usda.gov/fnic/foodcomp/search/. Information adapted from: [employer] Patient Information 2009 [employer]. [facility] 2012 http://www.Win the Planet/contents/zioksfofmers-zpbancc-hyvxee-the-basics Follow Up Care 03/31/2022 10:27:32 With:Bender JASQIANA Address: [facility] [address] [place] [address] Business (1) When: Unknown Comments:office will call for follow up [facility]05-17-2022 Hospital Discharge instructions Patient Education 03/31/2022 [...] including vitamins, herbs, eye drops, creams, and ebpa-lcg-nxjrqbg medicines. Any problems you or family members [...] 10/29/2001 Document Revised: 08/24/2018 Document Reviewed: 01/12/2017 [employer] Patient Education 2020 [employer]. Follow Up Care 03/23/2022 12:11:50 With:Nereyda Gomez CNP Address: When:1 month [facility] Evaluation + Plan note Future Appointments Appointment Date:05/25/2022 08:45:00 AM Scheduled Provider: Location:[facility] Appointment Type:Surgery FT [facility] Evaluation + Plan note Future Appointments Appointment Date:06/10/2023 10:40:00 AM Scheduled Provider:Nereyda Gomez CNP Location[facility] Appointment Type:[facility] Follow Up Future Scheduled Tests Laboratory* Fecal WBC Lactoferrin 04/13/23 * Giardia lamblia, Direct Detection EIA 04/13/23 * O & P Exam, Routine 04/13/23 * Clostridium Difficile PCR 04/13/23 * Enteric Panel by PCR 04/13/23 [facility] Evaluation + Plan note Future Appointments Appointment Date:06/10/2023 10:40:00 AM Scheduled Provider:Nereyda Gomez CNP Location:[facility] Appointment Type:[facility] Follow Up Diagnostic Tests Pending * O & P Exam, Routine 04/15/23 * Giardia lamblia, Direct Detection EIA [facility] Appointment Date:09/13/2023 10:40:00 AM Scheduled Provider:Nereyda Gomez CNP Location:[facility] Appointment Type:BAD Follow Up [facility] Evaluation + Plan note Future Appointments Appointment Date:10/14/2023 02:20:00 PM Scheduled Provider:Nereyda Gomez CNP Location:[facility] Appointment Type:[facility] Follow Up Future Scheduled Tests Laboratory* CBC w/ Auto Diff 10/01/23 * Comprehensive Metabolic Panel 10/01/23 * Thyroid Stimulating Hormone 10/01/23 [facility] Evaluation + Plan note Future Appointments Appointment Date:12/09/2023 02:00:00 PM Scheduled Provider:Nereyda Gomez CNP Location:[facility] Appointment Type:[facility] Follow Up Future Scheduled Tests Laboratory* CBC w/ Auto Diff 10/01/23 * Comprehensive Metabolic Panel 10/01/23 * Thyroid Stimulating Hormone 10/01/23 [facility] Evaluation note* Diagnosis Melanocytic nevus of trunk- Primary Benign neoplasm of skin of trunk, except scrotum Actinic keratosis Lentigines Seborrheic keratosis documented in [facility]* Diagnosis Benign essential tremor- Primary Essential and other specified forms of tremor Neurogenic pain Cervical paraspinal muscle spasm Spasm of muscle Polyneuropathy Unspecified hereditary and idiopathic peripheral neuropathy Neurogenic pain- Primary Benign essential tremor Essential and other specified forms of tremor Verruca plantaris- Primary Plantar wart Foot pain, right Pain in soft tissues of limb Diabetes mellitus due to underlying condition with diabetic polyneuropathy, unspecified whether shelter insulin use ([facility]) Pain due to onychomycosis of toenails of both feet documented [facility] Narrative No data available for this section [facility] Discharge instructions No data available for this section [facility] available for this [facility] Summary Purpose Family History No Family [...] section and content) DATE CREATED AUTHOR 02/09/2019 [facility] DATE CREATED AUTHOR AUTHOR'S ORGANIZ ATION [facility]/28/2023 [facility] DATE CREATED AUTHOR AUTHOR'S ORGANIZ ATION 07/12/2024 [facility] DATE CREATED AUTHOR AUTHOR'S ORGANIZ ATION 09/15/2024 [facility] EPIC DATE CREATED AUTHOR AUTHOR'S ORGANIZ ATION 10/04/2024 [facility] Care Team (unrecognized sect ion and content) Price Accuracy Supervisor Relationship Specialty Start Date End Date Pj Yuossef MD [address] [place] [id number] [phone] PCP - General Family Medicine 12/02/23 Price Accuracy Supervisor Relationship Specialty Start Date End Date Pj Youssef MD [address] [facility] [place] [address] PCP - General Family Medicine 12/02/23 Price Accuracy Supervisor Relationship Specialty Start Date End Date Pj Youssef MD [address] [facility] [place] [phone] PCP - General Family Medicine 12/02/23 Price Accuracy Supervisor Relationship Specialty Start Date End Date Pj Youssef MD [address] [facility] [place] [phone] PCP - General Family Medicine 12/02/23 Price Accuracy Supervisor Relationship Specialty Start Date End Date Pj Youssef MD [address] [place] [phone] PCP - General Family Medicine 12/02/23 Reason for Visit (unrecogniz ed section and content) Reason Comments Skin Check Reason Comments DM Foot Care DM Nails FOR RECORDS PERTAINING TO PATIENTS WHO ARE [...] BE BASED ON THE PRIMARY CLINICAL RECORDS. [facility]. provides no warranty or guarantee of the accuracy or completeness of information in this document.
== END 2024-10-18 07:59 | disposition home or self-care (01) ==
LOC: CARD 07:58
PROVIDERS: PCP Family Medicine; Visit Provider Internal Medicine Interventional Cardiology
DX: I31.39 Other pericardial effusion (noninflammatory) (principal); I08.0 Rheumatic disorders of both mitral and aortic valves; I27.20 Pulmonary hypertension, unspecified
CPT/HCPCS: 93306

== ENCOUNTER 2024-10-28 10:59 | Emergency (ER) | payer MEDICARE, SELFPAY ==
[2024-10-28 11:04] VITALS: PULSE 89; TEMP 36.2; O2SAT 94; BMI 25.1
--- OUTSIDE RECORDS SUMMARY | 2024-10-28 11:06 | XMS_ITS | CCD ---
Author Organization [facility] Care Team Providers Care Answerer Name Role Phone PHYSICIAN, DEFAULT Admitting Unavailable PHYSICIAN, DEFAULT Attending Unavailable VAN YOUSSEF Primary Care Unavailable Van Youssef Primary Care Physician [phone] MIKAEL ., DR ARAUJO Primary Care Unavailable HOY ., DR ARAUJO Consulting Unavailable HOY ., DR ARAUJO Attending Unavailable HOY ., DR ARAUJO Admitting Unavailable ZIEBER, DR CLOVER Zimmer Consulting Unavailable [place], DR CRAMER Consulting Unavailable HOY ., DR ARAUJO Primary Care Unavailable [place], DR CRAMER Attending Unavailable [place], DR CRAMER Admitting Unavailable [place], DR CRAMER Consulting Unavailable HOY ., DR ARAUJO Primary Care Unavailable [place], DR CRAMER Attending Unavailable [place], DR CRAMER Admitting Unavailable HOY ., DR ARAUJO Consulting Unavailable HOY ., DR ARAUJO Primary Care Unavailable HOY ., DR ARAUJO Attending Unavailable HOY ., DR ARAUJO Admitting Unavailable [place], DR CRAMER Consulting Unavailable HOY ., DR ARAUJO Primary Care Unavailable [place], DR CRAMER Attending Unavailable [place], DR CRAMER Admitting Unavailable HOY ., DR ARAUJO Consulting Unavailable HOY ., DR ARAUJO Primary Care Unavailable HOY ., DR ARAUJO Attending Unavailable HOY ., DR ARAUJO Admitting Unavailable THUY, ALSTON Consulting Unavailable HOY ., DR ARAUJO Primary Care Unavailable GAMALIEL DALEY Attending Unavailable ALI, ALSTON Admitting Unavailable HOY [...] Consulting Unavailable HARLEY, MYNOR Consulting Unavailable Yefri Dwyre Consulting Unavailable GARCIA, FRANCISCO Consulting Unavailable ALEJANDRA, PREETI Consulting Unavailable RUTHIE LINDA Attending Unavailable AMYJEFF COVARRUBIAS Attending Unavailable MOUKARBEL, CLARIBEL Attending Unavailable MOUKARBEL, CLARIBEL Attending Unavailable MOUKARBEL, CLARIBEL Attending Unavailable MOUKARBEL, CLARIBEL Attending Unavailable DANA APARICIO Attending Unavailable EDD, CLARIBEL Referring Unavailable Van Youssef MD Primary Care Provider [phone] BLAISE CHICAS Attending Unavailable BARRIE MONTOYA Attending Unavailable BLAISE CHICAS Attending Unavailable BLAISE CHICAS Attending Unavailable BLAISE CHICAS Attending Unavailable BLAISE CHICAS Attending Unavailable BLAISE CHICAS Attending Unavailable MICHAELLE, BARRIE Gil Attending Unavailable BLAISE CHICAS Attending Unavailable PETRODNEY QUINTERO Attending Unavailable BLAISE CHICAS Attending Unavailable Neeryda Gomez Attending Unavailable MD MARQUIS LOUIES Attending Unav ailable MD MARQUIS LOUISE Attending Unav ailable MD MARQUIS LOUISE Referring Unav ailable MD MARQUIS LOUISE Attending Unav ailable MD MARQUIS LOUISE Referring Unav ailable MD MARQUIS LOUISE Admitting Unav ailable MD MARQUIS LOUISE Admitting Unav ailable MD MARQUIS LOUISE Attending Unav ailable MD MARQUIS LOUISE Referring Unav ailable MD MARQUIS LOUISE Attending Unav ailable MD MARQUIS LOUISE Referring Unav ailable MD MARQUIS LOUISE Attending Unav ailable MD MARQUIS LOUISE Attending Unav ailable MD MARQUIS LOUISE Referring Unav ailable Nereyda Gomez Attending Unavailable Allergies Allergy Classification Reported Allergen(s) Allergy Type Date of Onset Reaction(s) Facility (17 sources) Aminolevulinic Acid; Translations: [aminolevulinic acid] Drug Allergy 11-04-20 13 Unknown [facility] Repository (1 source) NITRO PATCH; Translations: [NITRO PATCH] Propensity to adverse reactions (disorder) 03-18-20 12 [facility] Repository (15 sources) Contrast media; Translations: [Contrast Dye] Drug allergy Unknown (qualifier value) [facility] (20 sources) Hmg-Coa Reductase Inhibitors (Statins); Translations: [statins] Allergy to substance 08-24-[address] [facility] (20 sources) Nitroglycerin; Translations: [nitroglycerin] Drug Allergy 02-23-20 22 Unknown (qualifier value) [facility] (2 sources) black walnut pollen extract; Translations: [[id number]-TPS REDUCTASE INHIBITORS] Drug Allergy 04-21-20 17 [facility] Repository (1 source) Iodine (And Iodine Containting Drugs) Drug allergy (disorder) 05-28-20 16 [facility] Repository (9 sources) IODINATED CONTRAST MEDIA; Translations: [IODINATED CONTRAST MEDIA] Propensity to adverse reactions to drug (disorder) 07-17-20 22 [facility] Repository (8 sources) Nitroglycerin Allergy to substance 02-23-20 22 [facility] (1 source) Aminolevulinic Acid; Translations: [aminolevulinic acid] Drug Allergy 11-04-20 13 [facility] Repository (1 source) Nitroglycerin; Translations: [Nitroglycerin Patch] Drug Allergy [facility] Repository Medications Current Medications Medication Drug Class(es) Dates Sig (Normalized) Sig (Original) acetaminophen 325 mg / HYDROcodone bitartrate 5 mg oral tablet (1 source) Opioid Agonist Start: 10-16-2024 take 1 tablet by mouth every six hours as needed for pain, then take 2 tablets by mouth every six hours as needed for pain [place] 325 mg-5 mg oral tablet 1 tab(s), Oral, q6hr, 2 tab(s), Refill(s) 0, Take q6hrs as needed for pain., [facility]/pharmacy #[id number], 185, cm, 10/02/24 11:15:00 EST, Height/Length Dosing, 91, kg, 10/02/24 11:15:00 EST, Weight Dosing Start Date: 10/16/24 Status: Ordered acyclovir 400 mg oral tablet (20 sources) Herpesvirus Nucleoside Analog DNA Polymerase Inhibitor, Herpes Simplex Virus Nucleoside Analog DNA Polymerase Inhibitor, Herpes Zoster Virus Nucleoside Analog DNA Polymerase Inhibitor Start: 01-09-2019 take 400 mg by mouth twice daily acyclovir 400 mg, Oral, BID, Refills(s) 0, Infection or prophylaxis for antibiotics Start Date: 01/09/19 Status: Ordered alogliptin 25 mg oral tablet (8 sources) Start: 11-12-2022 take 1 tablet by mouth in the morning alogliptin (Nesina) 25 MG tablet Take 1 tablet by mouth in the morning. 11/12/2022 Active ALPRAZolam 0.25 mg oral tablet (8 sources) Benzodiazepine ALPRAZolam (Xanax) 0.25 MG tablet [...] mouth in the morning. Active B-Complex tablet (8 sources) B-Complex tablet as directed Orally Active Bacillus Coagulans-Inulin (Align Prebiotic-Probiotic) 5-1.25 MG-GM chewable tablet (1 source) Bacillus Coagulans-Inulin (Align Prebiotic-Probiotic) 5-1.25 MG-GM chewable tablet 1 capsule 1 (one) time each day at the same time. Active bifidobacterium infantis 4 mg oral capsule (8 sources) Start: 06-10-2023 End: 09-08-2023 take 1 capsule by mouth once daily Probiotic Product (Align) capsule TAKE 1 CAPSULE BY MOUTH DAILY AFTER COMPLETING THE ANTIBIOTICS COURSE 06/10/2023 Active Start: 08-28-2020 take 1 capsule by [facility] once daily Align 4 mg oral capsule 4 mg = 1 cap(s), Oral, Daily, Take after completing the Antibiotics course, # 28 cap(s), Refills(s) 0, Pharmacy: [facility]/pharmacy #[id number], 185, cm, 08/28/20 12:05:00 EDT, Height/Length Dosing, 103.7, kg, 08/28/20 12:05:00 EDT, Weight Dosing Start Date: 08/28/20 Status: Ordered Symbicort (15 sources) Corticosteroid, beta2-Adrenergic Agonist Start: 01-09-2019 Symbicort 80-4. 5 mcg/actuation, Inhalation, BID, Refill(s) 0, COPD Start Date: 01/09/19 Status: Ordered budesonide-formo terol (Symbicort) 80-4.5 MCG/ACT inhaler 1 (one) time each day at the same time. Active cholecalciferol 0.025 mg oral tablet (8 sources) Vitamin D cholecalciferol (Vitamin D-[address]) 25 MCG (1000 UT) tablet Take 2,000 Units by mouth in the morning. Active ciprofloxacin 500 mg oral tablet (2 sources) Quinolone Antimicrobial Start: take 1 tablet by mouth twice daily Cipro 500 mg Tab 500 mg = 1 tab(s), Oral, BID, Start 1 day prior to procedure., # 6 tab(s), Refills(s) 0, Pharmacy: [facility]/pharmacy #[id number], 185, cm, 10/02/24 11:15:00 EST, Height/Length Dosing, 91, kg, 10/02/24 11:15:00 EST, Weight Dosing Start Date: 10/16/24 Status: Ordered Start: 08-11-2024 take 1 tablet by joslyn th twice daily Cipro 500 mg Tab 500 mg = 1 tab(s), Oral, BID, Start 3 days prior to procedure., # 6 tab(s), Refills(s) 0, Pharmacy: [facility]/pharmacy #[id number], 185, cm, 08/08/24 10:28:00 EDT, Height/Length Dosing, 91, kg, 08/08/24 10:28:00 EDT, Weight Dosing Start Date: 08/11/24 Status: Ordered cloNIDine hydrochloride 0.1 mg oral tablet (20 sources) Central alpha-2 Adrenergic Agonist Start: 01-09-2019 take 0.1 mg by mouth twice daily clonidine 0.1 mg, Oral, BID, Refills(s) 0, High blood pressure Start Date: 01/09/19 Status: Ordered diazePAM 10 mg oral tablet (1 source) Benzodiazepine Start: 10-16-2024 Valium 10 mg Tab 10 mg = 1 tab(s), Oral, Once, take one hour prior to the procedure., # 1 tab(s), Refills(s) 0, Pharmacy: [facility]/pharmacy #[id number], 185, cm, 10/02/24 11:15:00 EST, Height/Length Dosing, 91, kg, 10/02/24 11:15:00 EST, Weight Dosing Start Date: 10/16/24 Status: Ordered dicyclomine hydrochloride 10 mg oral [...] Status: Ordered gabapentin 600 mg oral tablet (14 sources) Anti-epileptic Agent Start: 01-09-2019 gabapenti n [...] Active hydrALAZINE hydrochloride 100 mg oral tablet (15 sources) Arteriolar Vasodilator Start: 01-09-2019 take 100 [...] tablet 3 (three) times a day Active take 0.5 tablet by m outh twice daily labetalol (Normodyne) 300 MG tablet TAKE 1/2 TABLET BY MOUTH 2 TIMES DAILY Active levoFLOXacin 750 mg oral tablet (8 sources) Quinolone Antimicrobial Start: 07-23-2023 levoFLOXacin (Levaquin) 750 MG tablet 1 (one) time each day at the same time. 07/23/2023 Active magnesium oxide 500 mg oral tablet (14 sources) Start: 08-28-2020 take 500 mg by mouth once daily magnesium oxide 500 mg, Oral, Daily, Refills(s) 0, Prophylaxis Start Date: 08/28/20 Status: Ordered Start: 08-28-2020 magnesium oxid e Oral, Refills(s) 0 Start Date: 08/28/20 Status: Ordered metFORMIN hydrochloride 500 mg oral tablet (5 sources) Biguanide Start: 08-08-2024 metformin 500 mg [...] hours Active mupirocin 20 mg/ml topical cream (3 sources) RNA Synthetase Inhibitor Antibacterial Start: 08-08-2024 mupirocin Top 2% Crm Refill(s) 0 Start Date: 08/08/24 Status: Ordered 24 hr NIFEdipine 90 mg extended release oral tablet (15 sources) Dihydropyridine Calcium Channel Ora Start: 01-09-2019 take 90 mg by mouth twice daily NIFEdipine 90 mg, Oral, BID, Refills(s) 0, High blood pressure Start Date: 01/09/19 Status: Ordered Start: 01-09-2019 take 90 mg by mouth once daily NIFEdipine 90 mg, Oral, Daily, Refills(s) 0, High blood pressure Start Date: 01/09/19 Status: Ordered take 1 tablet by joslyn twice daily NIFEdipine XL (Procardia XL) 60 MG 24 hr tablet Take 1 tablet twice a day by oral route for 90 days. Active NuLYTELY Lemus oral powder for reconstitution (1 source) Start: 03-31-2022 take 1 dose by mouth once daily NuLYTELY Lemus oral powder for reconstitution See Instructions, 1 EA, Refill(s) 0, 240 mL Oral Daily Prior to colonoscopy Per physician's instructions, [facility]/pharmacy #[id number], 185, cm, 03/31/22 9:58:00 EDT, Height/Length [...] by oral route for 90 days. Active phenazopyridine hydrochloride 100 mg oral tablet (1 source) Start: 10-16-2024 End: 10-30-2024 Pyridium 100 mg Tab 100 mg = 1 tab(s), Oral, TID, Take TID as needed., X 2 week(s), # 42 tab(s), Refills(s) 0, Pharmacy: [facility]/pharmacy #[id number], 185, cm, 10/02/24 11:15:00 EST, Height/Length Dosing, 91, kg, 10/02/24 11:15:00 EST, Weight Dosing Start Date: 10/16/24 Stop Date: 10/30/24 Status: Ordered pioglitazone 30 mg oral tablet (20 sources) [...] BID 90 tablet 1 08/01/2024 Active Start: 01-11-2024 primidone (Mys oline) 50 MG tablet Indications: Benign essential tremor 1 tab TID 270 tablet 3 01/11/2024 Active Start: 01-09-2019 take 1 tablet by joslyn once daily at bedtime primidone 50 mg Tab 50 mg = 1 tab(s), Oral, Once a day (at bedtime), # 30 tab(s), Refills(s) 0, Seizure Start Date: 01/09/19 Status: Ordered SITagliptin 100 mg oral tablet (14 sources) Dipeptidyl Peptidase 4 Inhibitor Start: 01-09-2019 [...] Date: 01/09/19 Status: Ordered 60 actuat tiotropium 0.01949 mg/actuat inhalation spray (13 sources) Anticholinergic Start: 01-09-2019 Spiriva Respimat 1.25 mcg/inh inhalation aerosol 2 puff(s), Inhalation, Daily, Refill(s) 0, COPD Start Date: 01/09/19 Status: Ordered Completed/Discontinued Medications Medication Drug Class(es) Dates Sig (Normalized) Sig (Original) betamethasone 0.5 mg/ml / clotrimazole 10 mg/ml topical cream (3 sources) Azole Antifungal, Corticosteroid Start: 08-08-2024 betamethasone-satnam trimazole Top 0.05%-1% Crm 15 gram Refill(s) 0 Start Date: 08/08/24 Status: Ordered psyllium 525 mg oral capsule (14 sources) Start: 08-28-2020 take 8 capsules by mouth once daily Metamucil 525 mg oral capsule 1,050 mg = 2 cap(s), Oral, Daily, Take 2 hour apart from the other medications with at least 8 ounces of water, # 160 cap(s), Refills(s) 1, Pharmacy: [facility]/pharmacy #[id number], 185, cm, 08/28/20 12:05:00 EDT, Height/Length Dosing, 103.7, kg, 08/28/20 12:05:00 EDT, Weight Dosing Start Date: 08/28/20 Status: Ordered Problems Active Problems Problem Classification Problem Date Documented Da te Episodic/Chronic Abdominal pain (1 source) Abdominal pain; Translations: [Unspecified abdominal pain] Onset: 10-01-2023 Episodic Asthma (14 sources) Asthma 08-28-2020 Chronic Cardiac dysrhythmias (1 [...] disease (2 sources) Atherosclerotic heart disease of [place] coronary artery without angina pectoris; Translations: [Atherosclerotic heart disease of [place] coronary artery without angina pectoris] Onset: 03-03-2024 Chronic Deficiency and other anemia (1 source) Anemia, unspecified; Translations: [ANEMIA UNSPECIFIED] Onset: 03-04-2023 Episodic Diabetes mellitus with complications (6 sources) Type 2 diabetes mellitus with hyperglycemia; Translations: [Type 2 diabetes mellitus with diabetic chronic kidney disease] Onset: 08-27-2022 Chronic Diabetes mellitus without complication (15 sources) Diabetes mellitus; Translations: [Type 2 diabetes mellitus without complications] Onset: 04-30-2022 08-28-2020 Chronic Disorders of lipid metabolism (4 sources) Hyperlipidemia, unspecified; Translations: [HYPERLIPIDEMIA UNSPECIFIED] Onset: 04-28-2022 Chronic Diverticulosis and diverticulitis (13 sources) Diverticula of intestine; Translations: [Diverticulosis of intestine, part unspecified, without perforation or abscess without bleeding] Onset: 06-09-2022 Chronic Essential hypertension (3 sources) Essential (primary) hypertension; Translations: [ESSENTIAL PRIMARY HYPERTENSION] Onset: 04-30-2022 Chronic Fluid and electrolyte disorders (5 sources) Hypo-osmolality and hyponatremia; Translations: [Hyperkalemia] Onset: 08-27-2022 Episodic Genitourinary symptoms and ill-defined conditions (4 sources) Retention of urine; Translations: [Retention of urine, unspecified] Onset: 08-08-2024 Episodic Heart valve disorders (7 sources) Nonrheumatic aortic (valve) stenosis; Translations: [Rheumatic tricuspid insufficiency] Onset: 07-01-2022 Chronic Hemorrhoids (13 sources) Hemorrhoids; Translations: [Unspecified hemorrhoids] Onset: 06-09-2022 Episodic Hyperplasia of prostate (4 sources) Benign prostatic hypertrophy with outflow obstruction; Translations: [Benign prostatic hyperplasia with lower urinary tract symptoms] Onset: 08-08-2024 Chronic Hypertension with complications and secondary hypertension (1 source) Hypertensive chronic kidney disease with stage 1 through stage 4 chronic kidney disease, or unspecified chronic kidney disease; Translations: [HTN CKD W/STAGE 1-4 CKD/UNS CKD] Onset: 08-27-2022 Chronic Inflammatory conditions of male genital organs (4 sources) Balanitis; 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] Onset: 08-08-2024 Chronic Mycoses (2 sources) Pain in toe; Translations: [Tinea unguium] 09-08-2024 Episodic Nausea and vomiting (7 sources) Nausea; Translations: [Nausea] Onset: 10-01-2023 Episodic Nutritional deficiencies (2 sources) Vitamin D deficiency, unspecified; Translations: [Vitamin D deficiency, unspecified] Onset: 06-07-2024 Chronic Other aftercare (1 source) Long-term current use of anticoagulant; Translations: [halfway (current) use of anticoagulants] Onset: 08-08-2024 Episodic Other and unspecified benign neoplasm (19 sources) History of polyp of colon; Translations: [Personal history of colonic polyps] Onset: 03-31-2022 Episodic Other and unspecified benign neoplasm (15 sources) Polyp of colon; Translations: [Polyp of [...] Chronic Other diseases of bladder and urethra (3 sources) Overactive bladder 08-08-2024 Chronic Other diseases of kidney and ureters (1 source) Urinary tract obstruction; Translations: [Other obstructive and reflux uropathy] Onset: 09-25-2024 Episodic Other gastrointestinal disorders (14 sources) Chronic constipation with overflow 08-28-2020 Episodic Other gastrointestinal disorders (4 sources) Other fecal abnormalities; Translations: [OTHER FECAL ABNORMALITIES] Onset: 02-27-2023 Episodic Other gastrointestinal disorders (13 sources) Urgent desire for stool; Translations: [Fecal urgency] Onset: 04-13-2023 Episodic Other gastrointestinal disorders (2 sources) Abnormal feces; Translations: [Other fecal abnormalities] Onset: 04-13-2023 Episodic Other gastrointestinal disorders (11 sources) Loose stool 04-13-2023 Episodic Other gastrointestinal disorders (9 sources) Abdominal wind pain; Translations: [Gas pain] Onset: 06-10-2023 Episodic Other gastrointestinal disorders (2 sources) Constipation, unspecified; Translations: [Constipation, unspecified] Onset: 10-01-2023 Episodic Other gastrointestinal disorders (6 sources) Constipation 10-01-2023 Episodic Other hereditary and degenerative nervous system conditions (8 sources) Essential tremor; Translations: [Essential tremor] Onset: 01-07-2024 01-07-2024 Chronic Other male genital disorders (4 sources) Acquired buried penis; 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] Onset: 08-08-2024 Chronic Other nervous system disorders (8 sources) Polyneuropathy; Translations: [Polyneuropathy, unspecified] Onset: 01-07-2024 01-07-2024 Chronic Other screening for suspected conditions (not mental disorders or infectious disease) (1 source) Raised prostate specific antigen; Translations: [Elevated prostate specific antigen [PSA]] Onset: 10-23-2024 Episodic Other skin disorders (2 sources) Actinic keratosis; [...] UNSPECIFIED] Onset: 08-27-2022 Chronic Residual codes; unclassified (8 sources) Obstructive sleep apnea syndrome; Translations: [Obstructive sleep apnea (adult) (pediatric)] Onset: 01-11-2024 01-11-2024 Chronic Residual codes; unclassified (7 sources) Family history of malignant neoplasm of digestive organ; Translations: [Family history of malignant neoplasm of digestive organs] Onset: 03-31-2022 Episodic Residual codes; unclassified (14 sources) Family history of cancer of colon 03-31-2022 Episodic Unclassified (4 sources) CHRN KIDNEY DISEASE STG 3 UNSP; Translations: [CHRN KIDNEY DISEASE STG 3 UNSP] Onset: 08-27-2022 Unclassified (3 sources) CONTACT W/AND (SUSP) EXPOS COVID-19; Translations: [CONTACT W/AND (SUSP) EXPOS COVID-19] Onset: 06-19-2022 Unclassified (1 source) COUGH, UNSPECIFIED; Translations: [COUGH, UNSPECIFIED] Onset: 06-19-2022 Unclassified (6 sources) Finding of sensation of abdomen 10-01-2023 Unclassified (2 sources) Longstanding persistent atrial fibrillation; Translations: [Longstanding persistent atrial fibrillation] Onset: 03-03-2024 Unclassified (1 source) Other pericardial effusion (noninflammatory); Translations: [Other pericardial effusion (noninflammatory)] Onset: 10-05-2022 Unclassified (3 sources) Drug therapy finding 08-08-2024 Viral infection [...] source) halfway (current) use of aspirin; Translations: [RETIREMENT CURRENT USE OF ASPIRIN] Onset: 08-27-2022 Episodic Other aftercare (1 source) halfway (current) use of anticoagulants; Translations: [RETIREMENT CURRNT USE ANTICOAGULANTS] Onset: 08-27-2022 Episodic Other aftercare (1 source) Other rodent 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 (current) drug therapy; Translations: [OTH STONEMASON CURRENT DRUG THERAPY] Onset: 08-27-2022 Episodic Other circulatory disease (1 source) Other specified symptoms and signs involving the circulatory and respiratory systems; Translations: [OTH SPEC SX SIGNS INVLV CIRC RS] Onset: 06-19-2022 Episodic Other connective tissue disease (8 sources) Spasm of cervical paraspinous muscle; Translations: [Other muscle spasm] Onset: 01-07-2024 01-07-2024 Episodic Other connective tissue disease (8 sources) Neurogenic pain; Translations: [Neuralgia and neuritis, unspecified] Onset: 01-07-2024 01-07-2024 Episodic Residual codes; unclassified (6 sources) Localized edema; Translations: [LOCALIZED EDEMA] Onset: 11-02-2022 Episodic Residual codes; unclassified (1 source) Edema, unspecified; Translations: [EDEMA UNSPECIFIED] Onset: 08-27-2022 Episodic Unclassified (8 sources) Parkinson's disease; Translations: [Parkinson disease] Onset: [...] Reference Range Facility Ambulatory Visit Summaryon 1 12-26-2023 Ambulatory Visit Summary Ambulatory Visit Summary NADIR BETH :1940 Visit Date:10/25/2024 Ambulatory Visit Instructions Your Care Team Attending Physician - ADRIAN GUSTAFSON, MARQUIS Primary Care Physician - Mikael GUSTAFSON, Van Referring Physician - ADRIAN GUSTAFSON, MARQUIS This Is Your Medications List NIFEdipine acetaminophen-hydrocod one ([place] 325 mg-5 mg oral tablet) acyclovir apixaban (Eliquis) aspirin betamethasone-clotrima zole topical (betamethasone-clotrim azole Top 0.05%-1% Crm 15 gram) budesonide-formoterol (Symbicort) ciprofloxacin (Cipro 500 mg Tab) clonidine diazepam (Valium 10 mg Tab) dicyclomine empagliflozin (Jardiance 10 mg oral tablet) ezetimibe (Zetia) ferrous sulfate furosemide (Lasix 80 mg Tab) furosemide (Lasix) gabapentin glimepiride hydrALAZINE labetalol magnesium oxide metformin (metformin 500 mg Tab) metoclopramide mupirocin topical (mupirocin Top 2% Crm) omeprazole phenazopyridine (Pyridium 100 mg Tab) pioglitazone (pioglitazone 30 mg Tab) potassium chloride (Klor-Con) prednisoLONE ophthalmic (Pred Mild) primidone (primidone 50 mg Tab) psyllium (Metamucil 525 mg oral capsule) sitagliptin (Januvia) tamsulosin (Flomax) tiotropium (Spiriva Respimat 1.25 mcg/inh inhalation aerosol) Procedures Performed Colonoscopy (05/11/2022), Cardioversion (01/11/2017), Back, Cholecystectomy, Colonoscopy, History of hernia repair, Tonsillectomy. What to do next Scheduled Follow-Up Appointments Wednesday 8:40 AM EST With: MARQUIS LOUISE MD Where: [facility] [address], [address] [place] [address]- Medications What How Much When Why Instructions Unchanged acetaminophen-hydrocod one ([place] 325 mg-5 mg oral tablet) 1 Tablets By Mouth Every 6 hours Take q6hrs as needed for pain. Unchanged acyclovir 400 Milligram By Mouth 2 times a day Unchanged apixaban (Eliquis) 2.5 Milligram By Mouth 2 times a day Unchanged aspirin 81 Milligram By Mouth Every day Unchanged betamethasone-clotrima zole topical (betamethasone-clotrim azole Top 0.05%-1% Crm 15 gram) Unchanged budesonide-formoterol (Symbicort) 80-4.5 mcg/actuation Inhalation 2 times a day Unchanged ciprofloxacin (Cipro 500 mg Tab) 1 Tablets By Mouth 2 times a day Start 1 day prior to procedure. Unchanged clonidine 0.1 Milligram By Mouth 2 times a day Unchanged diazepam (Valium 10 mg Tab) 1 Tablets By Mouth Once take one hour prior to the procedure. Unchanged dicyclomine 10 Milligram By Mouth 2 [...] By Mouth 2 times a day Unchanged phenazopyridine (Pyridium 100 mg Tab) 1 Tablets By Mouth 3 times a day Duration: 2 Weeks Take TID as needed. Unchanged pioglitazone (pioglitazone 30 mg Tab) 1 [...] History of colon polyps Incomplete bladder emptying Naus (more content not included)... Normal [facility] Inpatient Patient Summaryon 10-23-2024 Inpatient Patient Summary Inpatient Patient Summary [address] [address] Clinical Summary Person Information Name: NADIR BETH Age: 84 Years : 1940 Sex: Male PCP: Van Youssef MD Marital Status: Race: White Ethnicity: Non- or Language: Indonesian Visit Id: Visit Reason: BPH WITH URINARY OBSTRUCTION, INCOMPLETE BLADDER EMPTYING Speciality: Acuity: Enc Type: Outpatient Med Service: Surgery Arrival: 10/23/2024 13:48:15 Discharge: Dispo Type: Address: [address] [place] [address] [phone] Provider Notes: Diagnosis: Problems Active BPH with [...] This Visit (last charted value for your 10/23/2024 visit) No Laboratory or Other Results This Visit Measurements: Height: Weight: Blood Pressure: Not Valued / Not Valued BMI: Procedures No Procedures Documented Immunizations No Immunizations Documented This Visit Final Med List: acetaminophen-hydrocod one ([place] 325 mg-5 mg oral tablet) 1 Tablets By Mouth every 6 hours. Take q6hrs as needed for pain.. Refills: 0. acyclovir 400 Milligram By Mouth 2 times a day. apixaban (Eliquis) 2.5 Milligram By Mouth 2 times a day. aspirin 81 Milligram By Mouth every day. betamethasone-clotrima zole topical (betamethasone-clotrim azole Top 0.05%-1% Crm 15 gram) budesonide-formoterol (Symbicort) 80-4.5 mcg/actuation Inhalation 2 times a day. ciprofloxacin (Cipro 500 mg Tab) 1 Tablets By Mouth 2 times a day. Start 1 day prior to procedure.. Refills: 0. clonidine 0.1 Milligram By Mouth 2 times a day. diazepam (Valium 10 mg Tab) 1 Tablets By Mouth Once. take one hour prior to the procedure.. Refills: 0. dicyclomine 10 Milligram By Mouth 2 times [...] Milligram By Mouth 2 times a day. phenazopyridine (Pyridium 100 mg Tab) 1 Tablets By Mouth 3 times a day for 2 Weeks. Take TID as needed.. Refills: 0. pioglitazone (pioglitazone 30 mg Tab) 1 Tablets [...] day. Care Team Members: Attending Physician: MARQUIS LOUISE MD Consulting Physician: Referring Physician: MARQUIS LOUISE MD Follow up: Patient Education Information: Benign Prostatic Hyperplasia [facility] Main OR Intraoperative Recor don 10-23-2024 Main OR Intraoperative Record Main OR Intraoperative Record IntraOp Document Type FTURO Summary Primary Physician: MARQUIS LOUISE MD Finalized Date/Time: 10/23/24 15:03:19 Pt. Name: NADIR BETH Joy Borja/Sex: 1940 Male Med Rec #: [id number] Physician: MARQUIS LOUISE MD Financial #: [id number] Pt. Type: O Room/Bed: / Admit/Disch: 10/23/24 13:48:15 - Institution: Case Times FTURO Entry 1 Patient Times In Room 10/23/24 14:14:00 Out Room 10/23/24 14:55:00 Procedure Times Start 10/23/24 14:20:00 Stop 10/23/24 14:38:00 Anesthesia Times Last Modified By: Oliva Goel 10/23/24 15:02:33 General Comments: 18 FR. COUDE PALOMARES CATH PLACED AT END OF CASE.BRANDEN HARDY. Case Attendance FTURO Entry 1 Entry 2 Entry 3 Case Attendee ADRIAN GUSTAFSON, Oliva Goel SUPERVISING EDITOR TRAILER, Ana CHO Role Performed Surgeon - Primary Sourcing Internship - Primary Scrub - Primary Time In 10/23/24 14:14:00 10/23/24 14:14:00 10/23/24 14:14:00 Time Out 10/23/24 14:55:00 10/23/24 14:55:00 10/23/24 14:55:00 Procedure CYSTOSCOPY LOCAL CYSTOSCOPY LOCAL CYSTOSCOPY LOCAL UROLIFT(.) UROLIFT(.) UROLIFT(.) Comments Last Modified By: Oliva Goel Kelsie E Burgderfer, Kelsie E 10/23/24 15:02:34 10/23/24 15:02:34 10/23/24 15:02:34 Surgical Procedures FTURO Entry 1 Procedure Description Procedure CYSTOSCOPY LOCAL UROLIFT Modifiers . Surgeon Description CYSTO WITH UROLIFT Primary Procedure Yes Primary Surgeon MARQUIS LOUISE MD Start 10/23/24 14:20:00 Stop 10/23/24 14:38:00 Anesthesia Type Local Surgical Service Urology Wound Class 2 - Clean-Contaminated Last Modified By: Oliva Goel 10/23/24 15:02:41 General Case Data FTURO Pre-Care Text: Classifies surgical wound, implements aseptic technique, initiates traffic control Entry 1 Case Information OR URO 1 FT Case Level None Wound Class 2 - Clean-Contaminated Specialty Urology Preop Diagnosis BPH WITH URINARY Postop Same As Preop Yes OBSTRUCTION, INCOMPLETE BLADDER EMPTYING Postop Diagnosis BPH WITH URINARY Outcomes Met? Yes OBSTRUCTION, INCOMPLETE BLADDER EMPTYING Last Modified By: Oliva Goel 10/23/24 14:08:54 Post-Care Text: The patient is free from signs and symptoms of infection EU IntraOp - FTURO Pre-Care Text: Implements protective measures prior to operative or invasive procedure, confirms identity before the operative or invasive procedure, verifies operative procedure, surgical site, and laterality Entry 1 EU Perioperative Protocols Procedure(s) CYSTOSCOPY LOCAL Patient Identity Birthday, ID Band UROLIFT(.) Verified (select at Check, Patient least 2): Participation Consents / H and P H&P, Surgery/Procedure Operative Site N/A Verified Consent Marking Verified Surgical Site Yes Laterality Verified n/a Verified Procedure Verified Yes Correct Patient Yes Position Verified Availability Equipment, Implant, Time Out ADRIAN GUSTAFSON, Verified (If Medication Participants Manasa CHO, Applicable) Walt Pool CST, Kimberly A Time Out Complete 10/23/24 14:19:00 Allergies Reviewed? Yes Allergies Reviewed Self/Patient With Body Position High Lithotomy Prep Area PENIS Prep Agents Betasept Skin. Condition Unable to Visualize Description N/A Additional None Specimens Collected Vitals - EU Blood Pressure 152/78 Pulse 84 bpm Respirations 18 br/min SPO2 90 % EBL 0 I&O - EU Total Intake 0 mL Total Output 0 mL Outcomes Met? Yes Last Modified By: Oliva Goel 10/23/24 14:26:42 Post-Care Text: The patient is free from signs and symptoms of injury caused by extraneous objects Implant Log FTURO Pre-Care Text: Records devices implanted during the operative or invasive procedure Entry 1 Implant/Explant Implant Implant Identification Description UROLIFT Lot Number [id number] Flat Cutter UROLIFT Catalog ???# UL2-C Expiration Date 11/30/25 Usage Data Implant Site PROSTATE Quantity 6 Outcomes Met? Yes Last Modified By: Oliva Goel 10/23/24 14:34:27 Post-Care Text: The patient is free from [...] name), if applicable addressed Sign Out Complete 10/23/24 14:38:00 Last Modified By: Oliva Goel 10/23/24 14:38:38 Case Comments Finalized By: Oliva Goel Document Signatures Signed By: Oliva Goel 10/23/24 15:03 Oliva Goel (more content not included)... [facility] Main OR Preoperative Recordo n 10-23-2024 Main OR Preoperative Record Main OR Preoperative Record Holding Area Document Type FTURO Summary Primary Physician: MARQUIS LOUISE MD Finalized Date/Time: 10/23/24 14:17:30 Pt. Name: LAURAMiroslavaNADIR DUVALL D.O.B./Sex: 1940 Male Med Rec #: [id number] Physician: MARQUIS LOUISE MD Financial #: [id number] Pt. Type: O Room/Bed: / Admit/Disch: 10/23/24 13:48:15 - Institution: Case Times Holding FTURO Pre-Care Text: Verifies consent for planned procedure, identifies individual values and wishes concerning care, includes family members in perioperative teaching Secures patient's records' belongings, and valuables, maintains patient's dignity and privacy, and maintains patient confidentiality Entry 1 In Holding 10/23/24 14:04:00 Outcomes Met? Yes Last Modified By: Preeti Kaur LPN 10/23/24 14:04:40 Post-Care Text: The patient participates in decisions affecting his or her perioperative plan of care The patient's right to privacy is maintained Surgery Checklist FTURO Entry 1 Patient Birthday, ID Band Procedure Surgical Consent, With Identification: Check, Patient Verification: Patient Participation NPO after Midnight: n/a Personal Items: Glasses Limitations: up ad jean pierre Complaints of Pain: No Skin Integrity Intact, [place], Warm, & Dry Vitals - EU Blood Pressure 152/78 Pulse 84 bpm Respirations 18 br/min SPO2 90 % Additional None RN Reviewed Yes Specimens Collected Last Modified By: Oliva Goel 10/23/24 14:17:29 Finalized By: Oliva Goel Document Signatures Signed By: Vincent Preeti BURGOS 10/23/24 14:05 Oliva Goel 10/23/24 14:17 [facility] Operative Reporton 4 Operative Report Operative Report Patient: NADIR BETH Age: 84 years Sex: Male : 1940 Associated Diagnoses: None Author: MARQUIS LOUISE MD Procedure SURGEON: Marquis Louise MD PREOPERATIVE DIAGNOSIS: BPH POSTOPERATIVE DIAGNOSIS: Same PROCEDURE: Cystoscopy, Urolift Implant FINDINGS: Bilobar Hyperplasia of prostate with urolift clips placed to create wide open channel???6 total clips ANESTHESIA: Local INTRAVENOUS FLUIDS: None ESTIMATED BLOOD LOSS: Minimal TUBES AND DRAINS: 18 Fr palomares with 10cc in balloon SPECIMENS: None COMPLICATIONS: None INDICATIONS FOR PROCEDURE: Patient is a 84-year-old male with IPSS score of 23 presented for the aforementioned procedure. H&P was reviewed, informed consent was obtained, patient understood risk, benefits, alternatives to the procedure and wished to proceed. OPERATIVE DETAIL: Patient was brought to the operative suite and placed in the dorsolithotomy position and prepped and draped in normal sterile fashion. Timeouts performed confirming patient, procedure, side, all in the room agreed. He had previously taken antibiotics. We began by injecting lidocaine into the urethral meatus. We then placed the 20 Lao cystoscope into the bladder. Bilobar hyperplasia was noted. The first UroLift clip was placed away from the verumontanum. An adjacent clip was then placed and opposite to the 2 additional clips were placed. Then 1/2 cm from the bladder neck 2 clips on the right and left lateral lobes were placed. A wide open channel was placed there were able to easily navigate with a 20 Lao scope. Scope was then removed and an 18 Lao Palomares catheter was placed with return of light pink urine and no clots noted. This concluded the procedure. Patient was then transferred to PACU in stable condition. PLAN: Patient will follow-up in 2 days for Palomares catheter removal. 10 cc in the balloon Follow-up in 6 to 8 weeks with IPSS at that time [facility] Comment on above: Result Comment: Elec tronically Signed By: ADRIAN GUSTAFSON, MARQUIS\.br\Date and Time Signed: 10/23/24 15:06 EST Outpatient Surgery Discharge Instructionon 10-23-2024 Outpatient Surgery Discharge Instruction Outpatient Surgery Discharge Instruction [place] [id number] Patient Discharge Instructions PERSON INFORMATION Name: NADIR BETH Date of : 1940 Current Date: 10/23/2024 14:58:03 PHYSICIANS Admitting Physician: MARQUIS LOUISE MD Comment: Discharge Diagnosis: NADIR BETH has been given the following list of follow-up instructions, prescriptions, and patient education materials: IF UNABLE TO CONTACT YOUR PHYSICIAN AND YOU FEEL IT IS AN EMERGENCY, GO TO THE NEAREST EMERGENCY ROOM OR CALL 911 Follow up: Comment: PATIENT EDUCATION INFORMATION Instructions: Benign Prostatic [...] destroy and remove a small amount of (more content not included)... [facility] Ambulatory Visit Summaryon 1 12-02-2023 Ambulatory Visit Summary Ambulatory Visit Summary NADIR BETH :1940 Visit Date:10/02/2024 Ambulatory Visit Instructions Your Diagnosis BPH with urinary obstruction Incomplete bladder emptying Balanitis Acquired buried penis OAB (overactive bladder) Anticoagulated Your Care Team Attending Physician - ADRIAN GUSTAFSON, MARQUIS Primary Care Physician - Van Youssef MD Referring Physician - ADRIAN GUSTAFSON, MARQUIS This Is Your Medications List NIFEdipine acyclovir apixaban (Eliquis) aspirin betamethasone-clotrima zole topical (betamethasone-clotrim azole Top 0.05%-1% Crm 15 gram) budesonide-formoterol (Symbicort) ciprofloxacin (Cipro 500 mg Tab) clonidine [...] 81 Milligram By Mouth Every day Unchanged betamethasone-clotrima zole topical (betamethasone-clotrim azole Top 0.05%-1% Crm 15 gram) Unchanged budesonide-formoterol (Symbicort) 80-4.5 mcg/actuation Inhalation 2 times a [...] Survey Yo (more content not included)... [facility] Ambulatory Visit Summary Ambulatory Visit Summary NADIR HRON Joy :1940 Visit Date:10/02/2024 Ambulatory Visit Instructions Your Diagnosis BPH with urinary obstruction Incomplete bladder emptying Balanitis Acquired buried penis OAB (overactive bladder) Anticoagulated Your Care Team Attending Physician - ADRIAN GUSTAFSON, MARQUIS Primary Care Physician - Van Youssef MD Referring Physician - ADRIAN GUSTAFSON, MARQUIS This Is Your Medications List NIFEdipine acyclovir apixaban (Eliquis) aspirin betamethasone-clotrima zole topical (betamethasone-clotrim azole Top 0.05%-1% Crm 15 gram) budesonide-formoterol (Symbicort) ciprofloxacin (Cipro 500 mg Tab) clonidine [...] 81 Milligram By Mouth Every day Unchanged betamethasone-clotrima zole topical (betamethasone-clotrim azole Top 0.05%-1% Crm 15 gram) Unchanged budesonide-formoterol (Symbicort) 80-4.5 mcg/actuation Inhalation 2 times a [...] us for (more content not included)... [facility] Urology Office/Clinic Noteon 10-02-2024 Urology Office/Clinic Note [...] with voice recognition artificial intelligence software, specifically [employer], [employer] and or [employer]. Substitutions may have occurred due to the inherent limitations of voice recognition and artificial intelligence software. 1. BPH with urinary obstruction (N40.1: Benign prostatic hyperplasia with lower urinary tract symptoms) PSA: 01/13/19 - 3.43 03/17/24 - 2.6 [...] -Cipro 500mg bid start the day prior, [place] 325-5mg #2 q6hrs as needed for pain, [...] 3. 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) Pt presented to [facility] ER 08/06/24 with redness on the [...] and Lasix. -Dm control 6. Anticoagulated (Z79.01: terminologist (current) use of anticoagulants) Taking Eliquis. Hx of cardioversion. Elevated risk for periop complications. Based on patient's age, multiple medical comorbidities and his prostate size we discussed extensively that he will benefit most likely from a UroLift procedure. He is amenable to (more content not included)... [facility] Comment on above: Result Comment: Elec tronically Signed By: MARQUIS LOUISE MD\.br\Date and Time Signed: 10/02/24 11:43 EST\.br\Electronically Co-Signed By: Roxy Gatica\.br\Date and Time Co-Signed: 10/02/24 11:21 EST\.br\Electronically Co-Signed By: Roxy Gatica\.br\Date and Time Co-Signed: 10/02/24 11:22 EST\.br\Electronically Co-Signed By: Roxy Gatica\.br\Date and Time Co-Signed: 10/02/24 11:23 EST Inpatient Patient Summaryon 09-25-2024 Inpatient Patient Summary Inpatient Patient Summary [place] [id number] Clinical Summary Person Information Name: NADIR BETH Age: 84 Years : 1940 Sex: Male PCP: Van Youssef MD Marital Status: Race: White Ethnicity: Non- or Language: Indonesian Visit Id: Visit Reason: ENLARGED PROSTATE WITH URINARY OBSTRUCTION, INCOMPLETE BLADDER EMPTYING Speciality: Acuity: Enc Type: Outpatient Med Service: Surgery Arrival: 09/25/2024 11:42:27 Discharge: Dispo Type: Address: [address] [place] [address] [phone] Provider Notes: Diagnosis: Problems Active BPH with [...] aspirin 81 Milligram By Mouth every day. betamethasone-clotrima zole topical (betamethasone-clotrim azole Top 0.05%-1% Crm 15 gram) budesonide-formoterol (Symbicort) 80-4.5 mcg/actuation Inhalation 2 times a [...] day. Care Team Members: Attending Physician: MARQUIS LOUISE MD Consulting Physician: Referring Physician: MARQUIS LOUISE MD Follow up: With: Address: When: MARQUIS LOUISE [address] [place] [place] [id number] [phone] Business (1) Comments: Follow-up in the office in 2 weeks to discuss next plan With: Address: When: MARQUIS LOUISE [address] [place] [id number] [phone] Business (1) Patient Education Information: Benign Prostatic Hyperplasia [facility] Main OR Intraoperative Recor don 09-25-2024 Main OR Intraoperative Record Main OR Intraoperative Record IntraOp Document Type FTURO Summary Primary Physician: MARQUIS LOUISE MD Finalized Date/Time: 09/25/24 13:23:58 Pt. Name: NADIR BETH D.O.B./Sex: 1940 Male Med Rec #: [id number] Physician: MARQUIS LOUISE MD Financial #: [id number] Pt. Type: O Room/Bed: / Admit/Disch: 09/25/24 [...] C KWABENA Role Performed Surgeon - Primary Sourcing Internship - Primary Scrub - Primary Time In [...] ONLY Primary Procedure Yes Primary Surgeon MARQUIS LOUISE MD Start 09/25/24 13:05:00 Stop 09/25/24 13:15:00 [...] 09/25/24 13:23 Oliva Goel 09/25/24 13:23 [facility] Main OR Preoperative Recordo n 09-25-2024 Main OR Preoperative Record Main OR Preoperative Record Holding Area Document Type FTURO Summary Primary Physician: MARQUIS LOUISE MD Finalized Date/Time: 09/25/24 13:04:51 Pt. Name: NADIR BETH /Sex: 1940 Male Med Rec #: [id number] Physician: MARQUIS LOUISE MD Financial #: [id number] Pt. Type: O Room/Bed: / Admit/Disch: 09/25/24 [...] Complaints of Pain: No Skin Integrity Intact, [place], Warm, & Dry Vitals - EU Blood Pressure Pulse Respirations SPO2 Additional None RN Reviewed Yes Specimens Collected Last Modified By: Oliva Goel 09/25/24 13:04:50 Finalized By: Oliva Goel Document Signatures Signed By: Preeti Kaur LPN 09/25/24 12:49 Oliva Goel 09/25/24 13:04 [facility] Operative Reporton Operative Report Operative Report Patient: NADIR BETH Age: 84 years Sex: Male : 1940 Associated Diagnoses: None Author: MARQUIS LOUISE MD Procedure Indication for procedure: Patient is [...] next steps Impression and Plan Counseled: Family. [facility] Comment on above: Result Comment: Elec tronically Signed By: MARQUIS LOUISE MD\.br\Date and Time Signed: 09/25/24 13:27 EST Outpatient Surgery Discharge Instructionon 09-25-2024 Outpatient Surgery Discharge Instruction Outpatient Surgery Discharge Instruction [address] [address] Patient Discharge Instructions PERSON INFORMATION Name: NADIR BETH Date of : 1940 Current Date: 09/25/2024 13:21:43 PHYSICIANS Admitting Physician: MARQUIS LOUISE MD Comment: Discharge Diagnosis: NADIR BETH has been given the following list of follow-up instructions, prescriptions, and patient education materials: IF UNABLE TO CONTACT YOUR PHYSICIAN AND YOU FEEL IT IS AN EMERGENCY, GO TO THE NEAREST EMERGENCY ROOM OR CALL 911 Follow up: With: Address: When: [place] [phone] [employer] (1) Comments: Follow-up in the office in 2 weeks to discuss next plan With: Address: When: [place] [address] [phone] [employer] (1) Comment: PATIENT EDUCATION INFORMATION Instructions: Benign [...] radio frequen (more content not included)... 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 Incomplete bladder emptying OAB (overactive bladder) Anticoagulated Your Care Team Attending Physician - ADRIAN GUSTAFSON, MARQUIS Primary Care Physician - Van Youssef MD This Is Your Medications List Contact prescribing physician if questions or concerns NIFEdipine acyclovir apixaban (Eliquis) aspirin betamethasone-clotrima zole topical (betamethasone-clotrim azole Top 0.05%-1% Crm 15 gram) budesonide-formoterol (Symbicort) clonidine dicyclomine empagliflozin (Jardiance 10 mg [...] prescribing physician if questions or concerns Unchanged betamethasone-clotrima zole topical (betamethasone-clotrim azole Top 0.05%-1% Crm 15 gram) Contact prescribing physician if questions or concerns Unchanged budesonide-formoterol (Symbicort) 80-4.5 mcg/actuation Inhalation 2 times a [...] mg (more content not included)... Normal [facility] Urology Office/Clinic Noteon 08-08-2024 Urology Office/Clinic Note Urology Office/Clinic Note Chief Complaint follow up to [facility] ER HPI Staff 84 year old male new patient follow up to [facility] 08/06/24 presented due to redness on [...] 1. 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) Pt presented to [facility] ER 08/06/24 with redness on the [...] urinary channel, (more content not included)... [facility] Comment on above: Result Comment: Elec tronically Signed By: MARQUIS LOUISE MD\.br\Date and Time Signed: 08/08/24 11:05 EDT\.br\Electronically Co-Signed By: Roxy Gatica\.br\Date and Time Co-Signed: 08/08/24 10:46 EDT\.br\Electronically Co-Signed By: Roxy Gatica\.br\Date and Time Co-Signed: 08/08/24 10:53 EDT Office Visiton 07-05-2024 Follow-up visit [id number] Nadir Beth 1940 M Date Provider Department Center 07/05/[address] [facility] NEPHRO Comprehensiv Family History Problem Relation Age of Onset Coronary artery disease Father Family Status - Relation Status Age at Father Level of Service:45565 UT OFFICE/OUTPATIENT ESTABLISHED MOD MDM 30 MIN Reason for Visit and Comments: Follow-up [452323] Normal [facility] 36on 06-20-2024 36 Regarding echo resul t from 06/09/2024: MD Stephanie Kelley MA Based [...] he should have another echo at [facility] in Oct 2024, prior to his follow up with Dr. Cisneros in Nov 2024. She verbalized understanding. Echo order faxed to [facility]. [facility] 06-14-2024 36 Patients called and stating that dr. iLnda told her to call and let him know that her husbands blood pressure is better and she would like a call back. [facility] 06-09-2024 36 Spoke with patient's Shanna and made sure she understood to increase labetalol per Dr. Linda. She also understands not to resume hydralazine. [facility] 3606-07-2024 36 I'm Stephanie from Dr. Cisneros's office with Cardiology. Patient's daughter called and wanted to know if Dr. Linda had restarted patient's hydralazine- NOT hydroxyzine. I don't see in the note that it was restarted. Dr. Linda, or someone from his office- can you clarify this for me? Thanks so much. [facility] Follow-Upon 06-07-2024 Follow-Up [id number] Nadir Beth 1940 M Date Provider Department Center 06/07/2024 Salvador-RUTHIE LINDA [facility] NEPHRO Comprehensiv Family History Problem Relation Age of Onset Coronary artery disease Father Family Status - Relation Status Age at Father Level of Service:55749 UT OFFICE/OUTPATIENT ESTABLISHED MOD MDM 30 MIN () Reason for Visit and Comments: Follow-up [460069] [facility] Telephoneon 06-07-2024 Telephone [id number] Nadir Beth 1940 M Date Provider Department Center 06/07/2024 Francisco-IRIS GUADALUPE [facility] NEPHRO Comprehensiv Family History Problem Relation Age of Onset Coronary artery disease Father Family Status - Relation Status Age at Father [facility] Office Visiton 06-05-2024 Follow-up visit [id number] Nadir Beth 1940 M Date Provider Department Center 06/05/2024 CLARIBEL VILLALOBOS MILKA Beckett Family History Problem Relation Age of Onset Coronary artery disease Father Family Status - Relation Status Age at Father Level of Service:94686 UT OFFICE/OUTPATIENT ESTABLISHED MOD MDM 30 MIN [facility] 3605-17-2024 36 Faxed lab orders 05/17/24 [facility] 05-15-2024 36 Patient states that he needs his blood work to go to [facility] before his appointment on 05/31/24. [facility] 05-10-2024 36 LM on for patient or his to return my call. [facility] 05-08-2024 36 Patient's bucio lidia with concerns of elevated BP since hydralazine was stopped at last apt. She said sometimes it's very good - 110/60's and sometimes 152/70. He's scheduled to see you in a few weeks. Did you want to change anything? Please advise. Thanks. [facility] 3604-04-2024 36 Regarding blood work from 04/03/2024: MD Stephanie Kelley MA Stable renal function. Continue same treatment and follow-up as planned. Patient's made aware. [facility] Orders Onlyon 03-21-2024 Orders Only [id number] Nadir Beth Joy 1940 M Date Provider Department Center 03/21/2024 LUCRETIA BENZ MILKA Beckett Family History Problem Relation Age of Onset Coronary artery disease Father Family Status - Relation Status Age at Father [facility] Office Visiton 03-03-2024 Follow-up visit [id number] Lauracarl,Nadir Hamilton 1940 M Date Provider Department Center 03/03/2024 CLARIBEL [facility] Family History Problem Relation Age of Onset Coronary artery disease Father Family Status - Relation Status Age at Father Level of Service:71919 UT OFFICE/OUTPATIENT ESTABLISHED MOD MDM 30 MIN Reason for Visit and Comments: Follow-up [[id number]] [facility] 36on 12-29-2023 36 Called and spoke jaquan barrera patient and rescheduled patients appointment from 05/31 to 06/07. [facility] 36on 12-28-2023 36 Called patient lvm t o contact the office back to reschedule appointment. [facility] Follow-Upon 11-17-2023 Follow-Up [id number] Nadir Beth 1940 M Date Provider Department Center 11/17/[address] [facility] NEPHRO Comprehensiv Family History Problem Relation Age of Onset Coronary artery disease Father Family Status - Relation Status Age at Father Level of Service:32566 UT OFFICE/OUTPATIENT ESTABLISHED MOD MDM 30 MIN () Reason for Visit and Comments: Follow-up [329921] Chronic Kidney Disease [176] [facility] 36on 10-12-2023 36 Patient called to wander maynard aware that he was in [facility] ED on (Wednesday) for SOB. He wanted you to look over his records. I have uploaded them all into his media clerk for your review. His BNP is increased to 4000 and was previously 2600 about 1 month ago. Looks like they gave him extra lasix in the ED and recommended he follow up with Dr. Youssef outpatient. Can you please review and let me know if you'd like anything done/ordered? Thanks. [facility] 36on 09-20-2023 36 Called and spoke jaquan barrera and rescheduled appointment and informed her patient would need to get labs done. [facility] 36 Patients called in to reschedule appointment from 09/08 [facility] Office Visiton 09-17-2023 Follow-up visit [id number] Steen 1940 M Date Provider Department Center 09/17/2023 CLARIBEL VILLALOBOS [facility] Family History Problem Relation Age of Onset Coronary artery disease Father Family Status - Relation Status Age at Father Level of Service:28139 UT OFFICE/OUTPATIENT ESTABLISHED MOD MDM 30-39 MIN Reason for Visit and Comments: Follow-up [[id number]] [facility] 08-31-2023 [facility] Cardiology - [facility] Subjective Nadir Beth is a 83 [...] extremity edema. He was admitted to the [facility] in August 2022 due to hyponatremia, hyperkalemia and acute kidney injury, leukocytosis secondary to COVID-19 causing dehydration. I saw him on 05/24/2023 and the office and he had significant evidence of volume overload by exam and echocardiogram. I intensified his diuretic regimen. He ended up getting admitted to the [facility] with acute heart failure exacerbation and underwent [...] Allergies Allergen Reactions Iodinated Contrast Media Nitroglycerin Rktlzig-Qmu-Xls Reductase Inhibitors Medications Current Outpatient Medications: acyclovir [...] Take 1 ta (more content not included)... [facility] NURSNOTEon 08-31-2023 NURSNOTE Pt performed and passed bedside swallow study. RN educated pt on d/c instructions. RN encouraged pt to voice any questions or concerns. Pt verbalizes no questions or concerns at this time. Pt was wheeled off of unit with all of belongings. [facility] Telephoneon 08-24-2023 Telephone [id number] Nadir Beth 1940 M [facility] Provider Department Center 08/24/2023 RABIA [facility]ONG [facility] VASC LAB ID HeartVAS Family History Problem Relation Age of Onset Coronary artery disease Father Family Status - Relation Status Age at Father [facility] Office Visiton 07-21-2023 Follow-up visit [id number] Nadir Beth 1940 M Date Provider Department Center 07/21/2023 CLARIBEL VILLALOBOS [facility] Family History Problem Relation Age of Onset Coronary artery disease Father Family Status - Relation Status Age at Father Level of Service:46060 UT OFFICE/OUTPATIENT ESTABLISHED MOD MDM 30-39 MIN Reason for Visit and Comments: Follow-up [[id number]] [facility] MICRO OTHER TESTSOrdered By: Francisco Bolanos on 04-15-2023 Fecal WBC Lactoferrin Negative (04/15/23 7:00 AM) Normal Negative [place] Man Sero CHEMISTRYOrdered By: SYSTEM SYSTEM on 04-13-2023 Albumin [Mass/Vol] 3.8 g/dL Normal 3.3 - 5.0 gm/dL [place] Remisol Albumin/Globulin [Mass ratio] 1.4 {ratio} Normal [...] (S/P/Bld) [Vol rate/Area] 37 mL/min/1.73 m2 Low >=59mL/min/1 .73 m2 FT Chem S Globulin (S) [Mass/Vol] [...] 9.8 fL Normal 6.4 - 10.8 fL [place] HemeAutoSS Platelets (Bld) [#/Vol] 161.0 E9/L Normal 150.0 - 500.0 E9/L [place] HemeAutoSS RBC (Bld) [#/Vol] 4.0 E12/L Low 4.3 - 5.9 E12/L [place] HemeAutoSS WBC corrected for nucl RBC Auto (Bld) [#/Vol] 6.7 E9/L Normal 4.0 - 11.0 E9/L [place] HemeAutoSS ALBUMINon 03-24-2023 Albumin [Mass/Vol] 3.3 g/dL Critically low 3.4-5.0 [facility] Comment on above: Performed By: #### M ERICK Faith, PHOS #### [facility] [address] [address] [address] David Magana GLYCOHEMOGLOBIN A1Con 2022 ADA RECOMMENDATION SEE BELOW Normal [facility] Comment on above: Result Comment: ADA RECOMMENDED LIMIT 4.0 - 6.0 ADA THERAPEUTIC TARGET < 7.0 ACTION SUGGESTED > 7.0 Performed By: #### A 1C #### [facility] [address] [address] [address] David Magana Glucose [Mass/Vol] 108 mg/dL Normal [facility] Comment on above: Performed By: #### A 1C #### [facility] [address] [address] [address] David Magana HbA1c (Bld) [Mass fraction] 5.4 % Normal 4.5-6.2 [facility] Comment on above: Performed By: #### A 1C #### [facility] [address] [address] [address] David Magana PHOSPHORUSon 03-24-2023 Phosphate [Mass/Vol] 3.6 mg/dL Normal 2.6-4.7 [facility] Comment on above: Performed By: #### M ERICK Faith, PHOS #### [facility] [address] [address] [address] David Magana PROF CHEM 8 (BAS METB)on Anion gap [Moles/Vol] 11.6 mmol/L Normal [facility] Comment on above: Performed By: #### M ERICK Faith, PHOS #### [facility] [address] [address] [address] David Magana Calcium [Mass/Vol] 8.9 mg/dL Normal 8.5-10.1 [facility] Comment on above: Performed By: #### M ERICK Faiht, PHOS #### [facility] [address] [address] [address] David Magana Chloride [Moles/Vol] 107 mmol/L Normal 98-107 [facility] Comment on above: Performed By: #### M ERICK Faith, PHOS #### [facility] [address] [place] [address] Dr. David Magana CO2 [Moles/Vol] 30.8 mmol/L Normal 21.0-32.0 [facility] Comment on above: Performed By: #### ERICK Jacques, PHOS #### [facility] [address] [address] [address] David Magana Creatinine [Mass/Vol] 1.67 mg/dL Critically high 0.70-1.30 [facility] Comment on above: Performed By: #### ERICK Jacques, PHOS #### [facility] [address] [place] [address] Dr. David Magana EGFR-AF BOTSWANAN 48 mL/min/1.73m2 Critically low >=60 [facility] Comment on above: Performed By: #### ERICK Jacques, PHOS #### [facility] [address] [address] [address] David Magana EGFR-NON AF BOTSWANAN 39 mL/min/1.73m2 Critically low >=60 [facility] Comment on above: Performed By: #### M ERICK Faith, PHOS #### [facility] [address] [address] [address] David Magana Glucose [Mass/Vol] 128 mg/dL Critically high 74-106 [facility] Comment on above: Performed By: #### M Marcell BMP, PHOS #### [facility] [address] [place] [address] Dr. David Magana Potassium [Moles/Vol] 4.4 mmol/L Normal 3.5-5.1 [facility] Comment on above: Performed By: #### M Marcell BMP, PHOS #### [facility] [address] [place] [address] Dr. David Magana Sodium [Moles/Vol] 145 mmol/L Normal 136-145 [facility] Comment on above: Performed By: #### M Marcell BMP, PHOS #### [facility] [address] [place] [address] Dr. David Magana Urea nitrogen [Mass/Vol] 25.0 mg/dL Critically high 7.0-18.0 [facility] Comment on above: Performed By: #### ERICK Jacques, PHOS #### [facility] [address] [place] [address] Dr. David Magana Urea nitrogen/Creatinine [Mass ratio] 15.0 mg/mg Normal [facility] Comment on above: Performed By: #### ERICK Jacques, PHOS #### [facility] [address] [place] [address] Dr. David Magana VITAMIN D 25 OHon 03-24-2023 VIT D 25-OH 11.6 ng/mL Normal [facility] Comment on above: Performed By: #### C BC #### [facility] [address] [place] [address] Dr. David Magana VIT D RANGES SEE BELOW Normal [facility] Comment on above: Result Comment: <20 ng/mL Vit D deficient 20 - <30 ng/mL Vit D insufficient 30 - 100 ng/mL Vit D sufficient >100 ng/mL Potential Toxicity Performed By: #### C BC #### [facility] [address] [place] [address] Dr. David Magana CBC AUTO DIFFon 02-27-2023 BASO # 0.0 103/ul Normal 0.0-0.1 [facility] Comment on above: Performed By: #### M ERICK Faith, PHOS #### [facility] [address] [place] [address] Dr. David Magana Basophils/100 WBC (Bld) 0.5 % Normal 0.2-2.0 [facility] Comment on above: Performed By: #### M G, BMP, PHOS #### [facility] [address] [place] [address] Dr. David Magana EO # 0.7 103/ul Normal 0.0-0.7 [facility] Comment on above: Performed By: #### M G, BMP, PHOS #### [facility] [address] [place] [address] Dr. David Magana Eosinophils/100 WBC (Bld) 9.3 % Critically high 0.9-7.0 [facility] Comment on above: Performed By: #### M G, BMP, PHOS #### [facility] [address] [place] [address] Dr. David Magana Erythrocyte distribution width (RBC) [Ratio] 14.6 % Normal 11.0-15.0 [facility] Comment on above: Performed By: #### M G, BMP, PHOS #### [facility] [address] [place] [address] Dr. David Magana Hematocrit (Bld) [Volume fraction] 41.5 % Critically low 42.0-54.0 [facility] Comment on above: Performed By: #### M G, BMP, PHOS #### [facility] [address] [place] [address] Dr. David Magana Hemoglobin (Bld) [Mass/Vol] 13.9 g/dL Critically low 14.0-18.0 [facility] Comment on above: Performed By: #### M G, BMP, PHOS #### [facility] [address] [place] [address] Dr. David Magana IG # 0.02 10e3/ul Normal 0.00-0.03 [facility] Comment on above: Performed By: #### M G, BMP, PHOS #### [facility] [address] [place] [address] Dr. David Magana IG % 0.3 % Normal 0.0-0.5 [facility] Comment on above: Performed By: #### ERICK Jacques, PHOS #### [facility] [address] [place] [address] Dr. David Magana LYMPH # 1.0 103/ul Critically low 1.2-3.8 [facility] Comment on above: Performed By: #### ERICK Jacques, PHOS #### [facility] [address] [place] [address] Dr. David Magana Lymphocytes/100 WBC (Bld) 13.0 % Critically low 20.5-60.0 [facility] Comment on above: Performed By: #### ERICK Jacques, PHOS #### [facility] [address] [place] [address] Dr. David Magana MANUAL DIFF REQ NO Normal [place] Comment on above: Performed By: #### ERICK Jacques, PHOS #### [facility] [address] [place] [address] Dr. David Magana MCH (RBC) [Entitic mass] 33.5 pg Normal 25.9-34.0 [facility] Comment on above: Performed By: #### ERICK Jacques, PHOS #### [facility] [address] [place] [address] Dr. David Magana MCHC (RBC) [Mass/Vol] 33.5 g/dL Normal 29.9-35.2 [facility] Comment on above: Performed By: #### ERICK Jacques, PHOS #### [facility] [address] [place] [address] Dr. David Magana MCV (RBC) [Entitic vol] 100.0 fL Critically high 80.0-94.0 [facility] Comment on above: Performed By: #### ERICK Jacques, PHOS #### [facility] [address] [place] [address] Dr. David Magana MONO # 0.8 103/ul Normal 0.3-0.8 [facility] Comment on above: Performed By: #### M G, BMP, PHOS #### [facility] [address] [place] [address] Dr. David Magana Monocytes/100 WBC (Bld) 10.1 % Normal 1.7-12.0 [facility] Comment on above: Performed By: #### M G, BMP, PHOS #### [facility] [address] [place] [address] Dr. David Magana NEUT # 5.0 103/ul Normal 1.4-6.5 [facility] Comment on above: Performed By: #### M G, BMP, PHOS #### [facility] [address] [place] [address] Dr. David Magana Neutrophils/100 WBC (Bld) 66.8 % Normal 43.0-75.0 [facility] Comment on above: Performed By: #### M Marcell, BMP, PHOS #### [facility] [address] [place] [address] Dr. David Magana Platelet mean volume (Bld) [Entitic vol] 11.2 fL Normal 9.5-13.5 [facility] Comment on above: Performed By: #### M Marcell BMP, PHOS #### [facility] [address] [place] [address] Dr. Davdi Magana PLT 187 103/ul Normal 150-450 [facility] Comment on above: Performed By: #### M Marcell, BMP, PHOS #### [facility] [address] [place] [address] Dr. David Magana RBC 4.15 106/ul Critically low 4.70-6.10 [place] Comment on above: Performed By: #### M G, BMP, PHOS #### [facility] [address] [place] [address] Dr. David Magana WBC 7.5 103/ul Normal 4.0-11.0 [facility] Comment on above: Performed By: #### M G, BMP, PHOS #### [facility] [address] [place] [address] Dr. David Magana PROF 14(COMP METB)on 023 Albumin [Mass/Vol] 3.5 g/dL Normal 3.4-5.0 [facility] Comment on above: Performed By: #### A 1C #### [facility] [address] [place] [address] Dr. David Magana Albumin/Globulin [Mass ratio] 1.1 {ratio} Normal [facility] Comment on above: Performed By: #### A 1C #### [facility] [address] [place] [address] Dr. David Magana ALP [Catalytic activity/Vol] 76 U/L Normal 46-116 [facility] Comment on above: Performed By: #### A 1C #### [facility] [address] [place] [address] Dr. David Magana ALT [Catalytic activity/Vol] 23 U/L Normal 16-63 [facility] Comment on above: Performed By: #### A 1C #### [facility] [address] [place] [address] Dr. David Magana Anion gap [Moles/Vol] 13.1 mmol/L Normal [facility] Comment on above: Performed By: #### A 1C #### [facility] [address] [place] [address] Dr. David Magana AST [Catalytic activity/Vol] 17 U/L Normal 15-37 [facility] Comment on above: Performed By: #### A 1C #### [facility] [address] [place] [address] Dr. David Magana Bilirubin [Mass/Vol] 0.7 mg/dL Normal 0.2-1.0 [facility] Comment on above: Performed By: #### A 1C #### [facility] [address] [place] [address] Dr. David Magana Calcium [Mass/Vol] 9.0 mg/dL Normal 8.5-10.1 [facility] Comment on above: Performed By: #### A 1C #### [facility] [address] [place] [address] Dr. David Magana Chloride [Moles/Vol] 105 mmol/L Normal 98-107 [facility] Comment on above: Performed By: #### A 1C #### [facility] [address] [address] [address] David Magana CO2 [Moles/Vol] 29.0 mmol/L Normal 21.0-32.0 [facility] Comment on above: Performed By: #### A 1C #### [facility] [address] [address] [address] David Magana Creatinine [Mass/Vol] 1.77 mg/dL Critically high 0.70-1.30 [facility] Comment on above: Performed By: #### A 1C #### [facility] [address] [address] [address] David Magana EGFR-AF BOTSWANAN 45 mL/min/1.73m2 Critically low >=60 [facility] Comment on above: Performed By: #### A 1C #### [facility] [address] [address] [address] David Magana EGFR-NON AF BOTSWANAN 37 mL/min/1.73m2 Critically low >=60 [facility] Comment on above: Performed By: #### A 1C #### [facility] [address] [address] [address] David Magana Globulin (S) [Mass/Vol] 3.3 g/dL Normal [facility] Comment on above: Performed By: #### A 1C #### [facility] [address] [address] [address] David Magana Glucose [Mass/Vol] 135 mg/dL Critically high 74-106 [facility] Comment on above: Performed By: #### A 1C #### [facility] [address] [address] [address] David Magana Potassium [Moles/Vol] 4.1 mmol/L Normal 3.5-5.1 [facility] Comment on above: Performed By: #### A 1C #### [facility] [address] [address] [address] David Magana Protein [Mass/Vol] 6.8 g/dL Normal 6.4-8.2 [facility] Comment on above: Performed By: #### A 1C #### [facility] [address] [address] [address] David Magana Sodium [Moles/Vol] 143 mmol/L Normal 136-145 [facility] Comment on above: Performed By: #### A 1C #### [facility] [address] [address] [address] David Magana Urea nitrogen [Mass/Vol] 31.0 mg/dL Critically high 7.0-18.0 [facility] Comment on above: Performed By: #### A 1C #### [facility] [address] [address] [address] David Magana Urea nitrogen/Creatinine [Mass ratio] 17.5 mg/mg Normal [facility] Comment on above: Performed By: #### A 1C #### [facility] [address] [place] [address] Dr. David Magana PROTIMEon 02-27-2023 INR Coag (PPP) [Relative time] 0.99 {INR} Normal [facility] Comment on above: Performed By: #### A 1C #### [facility] [address] [address] [address] David Magana INR GUIDELINES SEE BELOW Normal [facility] Comment on above: Result Comment: IDANIA RED INR: 2.0 - 3.0 CONDITIONS NOT LISTED BELOW 2.5 - 3.5 FOR PROSTHETIC HEART VALVE REPLACEMENT 2.5 - 3.5 RECURRENT THROMBOSIS Performed By: #### A 1C #### [facility] [address] [place] [address] Dr. David Magana PT Coag (PPP) [Time] 10.5 s Normal 9.0-11.6 [facility] Comment on above: Performed By: #### A 1C #### [facility] [address] [place] [address] Dr. David Magana PTTon 02-27-2023 aPTT Coag (Bld) [Time] 33.0 s Normal 22.3-36.2 [facility] Comment on above: Performed By: #### P OCGLUC #### [facility] [address] [address] [address] David Magana ALBUMINon 12-28-2022 Albumin [Mass/Vol] 3.6 g/dL Normal 3.4-5.0 [facility] Comment on above: Performed By: #### C BC #### [facility] [address] [place] [address] Dr. David Magana GLYCOHEMOGLOBIN A1Con 2022 ADA RECOMMENDATION SEE BELOW Normal [facility] Comment on above: Result Comment: ADA RECOMMENDED LIMIT 4.0 - 6.0 ADA THERAPEUTIC TARGET < 7.0 ACTION SUGGESTED > 7.0 Performed By: #### P OCGLUC #### [facility] [address] [place] [address] Dr. David Magana Glucose [Mass/Vol] 140 mg/dL Normal [facility] Comment on above: Performed By: #### P OCGLUC #### [facility] [address] [place] [address] Dr. David Magana HbA1c (Bld) [Mass fraction] 6.5 % Critically high 4.5-6.2 [facility] Comment on above: Performed By: #### P OCGLUC #### [facility] [address] [place] [address] Dr. David Magana MAGNESIUMon 12-28-2022 Magnesium [Mass/Vol] 2.3 mg/dL Normal 1.8-2.4 [facility] Comment on above: Performed By: #### P OCGLUC #### [facility] [address] [place] [address] Dr. David Magana PROF CHEM 8 (BAS METB)on Anion gap [Moles/Vol] 13.2 mmol/L Normal [facility] Comment on above: Performed By: #### P OCGLUC #### [facility] [address] [place] [address] Dr. David Magana Calcium [Mass/Vol] 9.0 mg/dL Normal 8.5-10.1 [facility] Comment on above: Performed By: #### P OCGLUC #### [facility] [address] [address] [address] David Magana Chloride [Moles/Vol] 105 mmol/L Normal 98-107 [facility] Comment on above: Performed By: #### P OCGLUC #### [facility] [address] [address] [address] David Magana CO2 [Moles/Vol] 28.9 mmol/L Normal 21.0-32.0 [facility] Comment on above: Performed By: #### P OCGLUC #### [facility] [address] [address] [address] David Magana Creatinine [Mass/Vol] 1.66 mg/dL Critically high 0.70-1.30 [facility] Comment on above: Performed By: #### P OCGLUC #### [facility] [address] [address] [address] David Magana EGFR-AF BOTSWANAN 48 mL/min/1.73m2 Critically low >=60 [facility] Comment on above: Performed By: #### P OCGLUC #### [facility] [address] [address] [address] David Magana EGFR-NON AF BOTSWANAN 40 mL/min/1.73m2 Critically low >=60 [facility] Comment on above: Performed By: #### P OCGLUC #### [facility] [address] [address] [address] David Magana Glucose [Mass/Vol] 123 mg/dL Critically high 74-106 [facility] Comment on above: Performed By: #### P OCGLUC #### [facility] [address] [address] [address] David Magana Potassium [Moles/Vol] 4.1 mmol/L Normal 3.5-5.1 [facility] Comment on above: Performed By: #### P OCGLUC #### [facility] [address] [address] [address] David Magana Sodium [Moles/Vol] 143 mmol/L Normal 136-145 [facility] Comment on above: Performed By: #### P OCGLUC #### [facility] [address] [address] [address] David Magana Urea nitrogen [Mass/Vol] 29.0 mg/dL Critically high 7.0-18.0 [facility] Comment on above: Performed By: #### P OCGLUC #### [facility] [address] [place] [address] Dr. David Magana Urea nitrogen/Creatinine [Mass ratio] 17.5 mg/mg Normal [facility] Comment on above: Performed By: #### P OCGLUC #### [facility] [address] [place] [address] Dr. David Magana URINE T PROTEIN CREAT RATIOo n 12-28-2022 UR TOTAL PROTEIN <6.0 Normal <=12.0 [facility] Comment on above: Performed By: #### M G, BMP, PHOS #### [facility] [address] [place] [address] Dr. David Magana URINE CREAT 41.21 mg/dL Normal 20.00-300.00 [facility] Comment on above: Performed By: #### M G, BMP, PHOS #### [facility] [address] [place] [address] Dr. David Magana ALBUMINon 11-16-2022 Albumin [Mass/Vol] 3.3 g/dL Critically low 3.4-5.0 [facility] Comment on above: Performed By: #### C BC #### [facility] [address] [place] [address] Dr. David Magana CREATININE URINEon URINE CREAT 19.69 mg/dL Critically low 20.00-300.00 [facility] Comment on above: Performed By: #### M G, BMP, PHOS #### [facility] [address] [place] [address] Dr. David Magana HEMOGLOBINon 11-16-2022 Hemoglobin (Bld) [Mass/Vol] 14.9 g/dL Normal 14.0-18.0 [facility] Comment on above: Performed By: #### M G, BMP, PHOS #### [facility] [address] [place] [address] Dr. David Magana MAGNESIUMon 11-16-2022 Magnesium [Mass/Vol] 2.2 mg/dL Normal 1.8-2.4 [facility] Comment on above: Performed By: #### C BC #### [facility] [address] [place] [address] Dr. David Magana PHOSPHORUSon 11-16-2022 Phosphate [Mass/Vol] 3.9 mg/dL Normal 2.6-4.7 [facility] Comment on above: Performed By: #### C BC #### [facility] [address] [place] [address] Dr. David Magana PROF CHEM 8 (BAS METB)on Anion gap [Moles/Vol] 11.9 mmol/L Normal [facility] Comment on above: Performed By: #### C BC #### [facility] [address] [place] [address] Dr. David Magana Calcium [Mass/Vol] 8.8 mg/dL Normal 8.5-10.1 [facility] Comment on above: Performed By: #### C BC #### [facility] [address] [place] [address] Dr. David Magana Chloride [Moles/Vol] 104 mmol/L Normal 98-107 [facility] Comment on above: Performed By: #### C BC #### [facility] [address] [place] [address] Dr. David Magana CO2 [Moles/Vol] 27.4 mmol/L Normal 21.0-32.0 [facility] Comment on above: Performed By: #### C BC #### [facility] [address] [place] [address] Dr. David Magana Creatinine [Mass/Vol] 1.68 mg/dL Critically high 0.70-1.30 [facility] Comment on above: Performed By: #### C BC #### [facility] [address] [place] [address] Dr. David Magana EGFR-AF BOTSWANAN 48 mL/min/1.73m2 Critically low >=60 [facility] Comment on above: Performed By: #### C BC #### [facility] [address] [address] [address] David Magana EGFR-NON AF BOTSWANAN 39 mL/min/1.73m2 Critically low >=60 [facility] Comment on above: Performed By: #### C BC #### [facility] [address] [address] [address] David Magana Glucose [Mass/Vol] 212 mg/dL Critically high 74-106 [facility] Comment on above: Performed By: #### C BC #### [facility] [address] [address] [address] David Magana Potassium [Moles/Vol] 4.3 mmol/L Normal 3.5-5.1 [facility] Comment on above: Performed By: #### C BC #### [facility] [address] [address] [address] David Magana Sodium [Moles/Vol] 139 mmol/L Normal 136-145 [facility] Comment on above: Performed By: #### C BC #### [facility] [address] [address] [address] David Magana Urea nitrogen [Mass/Vol] 25.0 mg/dL Critically high 7.0-18.0 [facility] Comment on above: Performed By: #### C BC #### [facility] [address] [address] [address] David Magana Urea nitrogen/Creatinine [Mass ratio] 14.9 mg/mg Normal [facility] Comment on above: Performed By: #### C BC #### [facility] [address] [address] [address] David Magana PROTEIN RAND URINEon 023 UR PROT <5.0 Normal <=11.9 [facility] Comment on above: Performed By: #### M G, BMP, PHOS #### [facility] [address] [address] [address] David Magana US CHANI DOP LEG [...] CLOVER PEREZ Date: 2022-11-02 16:21 Normal [facility] BNPon 07-22-2022 Natriuretic peptide B (Bld) [Mass/Vol] 2143.0 pg/mL Critically high <=1,800.0 [facility] Comment on above: Performed By: #### M ERICK Faith PHOS #### [facility] [address] [place] [address] Dr. David Magana CBC AUTO DIFFon 07-22-2022 BASO # 0.0 103/ul Normal 0.0-0.1 [facility] Comment on above: Performed By: #### A 1C #### [facility] [address] [place] [address] Dr. David Magana Basophils/100 WBC (Bld) 0.3 % Normal 0.2-2.0 [facility] Comment on above: Performed By: #### A 1C #### [facility] [address] [place] [address] Dr. David Magana EO # 0.3 103/ul Normal 0.0-0.7 [facility] Comment on above: Performed By: #### A 1C #### [facility] [address] [place] [address] Dr. David Magana Eosinophils/100 WBC (Bld) 2.4 % Normal 0.9-7.0 [facility] Comment on above: Performed By: #### A 1C #### [facility] [address] [place] [address] Dr. David Magana Erythrocyte distribution width (RBC) [Ratio] 13.4 % Normal 11.0-15.0 [facility] Comment on above: Performed By: #### A 1C #### [facility] [address] [place] [address] Dr. David Magana Hematocrit (Bld) [Volume fraction] 42.7 % Normal 42.0-54.0 [facility] Comment on above: Performed By: #### A 1C #### [facility] [address] [place] [address] Dr. David Magana Hemoglobin (Bld) [Mass/Vol] 14.2 g/dL Normal 14.0-18.0 [facility] Comment on above: Performed By: #### A 1C #### [facility] [address] [address] [address] David Magana IG # 0.18 10e3/ul Critically high 0.00-0.03 [facility] Comment on above: Performed By: #### A 1C #### [facility] [address] [place] [address] Dr. David Magana IG % 1.6 % Critically high 0.0-0.5 [facility] Comment on above: Performed By: #### A 1C #### [facility] [address] [address] [address] David Magana LYMPH # 0.9 103/ul Critically low 1.2-3.8 [facility] Comment on above: Performed By: #### A 1C #### [facility] [address] [place] [address] Dr. David Magana Lymphocytes/100 WBC (Bld) 8.1 % Critically low 20.5-60.0 [facility] Comment on above: Performed By: #### A 1C #### [facility] [address] [place] [address] Dr. David Magana MANUAL DIFF REQ NO Normal [facility] Comment on above: Performed By: #### A 1C #### [facility] [address] [place] [address] Dr. David Magana MCH (RBC) [Entitic mass] 33.3 pg Normal 25.9-34.0 [facility] Comment on above: Performed By: #### A 1C #### [facility] [address] [place] [address] Dr. David Magana MCHC (RBC) [Mass/Vol] 33.3 g/dL Normal 29.9-35.2 [facility] Comment on above: Performed By: #### A 1C #### [facility] [address] [place] [address] Dr. David Magana MCV (RBC) [Entitic vol] 100.2 fL Critically high 80.0-94.0 [facility] Comment on above: Performed By: #### A 1C #### [facility] [address] [address] [address] David Magana MONO # 1.2 103/ul Critically high 0.3-0.8 [facility] Comment on above: Performed By: #### A 1C #### [facility] [address] [place] [address] Dr. David Magana Monocytes/100 WBC (Bld) 10.5 % Normal 1.7-12.0 [facility] Comment on above: Performed By: #### A 1C #### [facility] [address] [place] [address] Dr. David Magana NEUT # 8.9 103/ul Critically high 1.4-6.5 [facility] Comment on above: Performed By: #### A 1C #### [facility] [address] [place] [address] Dr. David Magana Neutrophils/100 WBC (Bld) 77.1 % Critically high 43.0-75.0 [facility] Comment on above: Performed By: #### A 1C #### [facility] [address] [place] [address] Dr. David Magana Platelet mean volume (Bld) [Entitic vol] 11.3 fL Normal 9.5-13.5 [facility] Comment on above: Performed By: #### A 1C #### [facility] [address] [place] [address] Dr. David Magana PLT 175 103/ul Normal 150-450 [facility] Comment on above: Performed By: #### A 1C #### [facility] [address] [place] [address] Dr. David Magana RBC 4.26 106/ul Critically low 4.70-6.10 [place] Comment on above: Performed By: #### A 1C #### [facility] [address] [place] [address] Dr. David Magana WBC 11.5 103/ul Critically high 4.0-11.0 [facility] Comment on above: Performed By: #### A 1C #### [facility] [address] [place] [address] Dr. David Magana PROF 14(COMP METB)on 022 Albumin [Mass/Vol] 2.6 g/dL Critically low 3.4-5.0 [facility] Comment on above: Performed By: #### ERICK Jacques, PHOS #### [facility] [address] [place] [address] Dr. David Magana Albumin/Globulin [Mass ratio] 0.9 {ratio} Normal [facility] Comment on above: Performed By: #### ERICK Jacques, PHOS #### [facility] [address] [place] [address] Dr. David Magana ALP [Catalytic activity/Vol] 49 U/L Normal 46-116 [facility] Comment on above: Performed By: #### ERICK Jacques, PHOS #### [facility] [address] [place] [address] Dr. David Magana ALT [Catalytic activity/Vol] 25 U/L Normal 16-63 [facility] Comment on above: Performed By: #### ERICK Jacques, PHOS #### [facility] [address] [place] [address] Dr. David Magana Anion gap [Moles/Vol] 12.8 mmol/L Normal [facility] Comment on above: Performed By: #### M Marcell BMP, PHOS #### [facility] [address] [place] [address] Dr. David Magana AST [Catalytic activity/Vol] 9 U/L Critically low 15-37 [facility] Comment on above: Performed By: #### Jim Faith BMP, PHOS #### [facility] [address] [address] [address] David Magana Bilirubin [Mass/Vol] 0.5 mg/dL Normal 0.2-1.0 [facility] Comment on above: Performed By: #### M G, BMP, PHOS #### [facility] [address] [address] [address] David Magana Calcium [Mass/Vol] 8.3 mg/dL Critically low 8.5-10.1 [facility] Comment on above: Performed By: #### M G, BMP, PHOS #### [facility] [address] [address] [address] David Magana Chloride [Moles/Vol] 105 mmol/L Normal 98-107 [facility] Comment on above: Performed By: #### M G, BMP, PHOS #### [facility] [address] [place] [address] Dr. David Magana CO2 [Moles/Vol] 24.2 mmol/L Normal 21.0-32.0 [facility] Comment on above: Performed By: #### M G, BMP, PHOS #### [facility] [address] [address] [address] David Magana Creatinine [Mass/Vol] 1.28 mg/dL Normal 0.70-1.30 [facility] Comment on above: Performed By: #### M G, BMP, PHOS #### [facility] [address] [address] [address] David Magana EGFR-AF BOTSWANAN >60 Normal >=60 [facility] Comment on above: Performed By: #### M G, BMP, PHOS #### [facility] [address] [address] [address] David Magana EGFR-NON AF BOTSWANAN 54 mL/min/1.73m2 Critically low >=60 [facility] Comment on above: Performed By: #### M G, BMP, PHOS #### [facility] [address] [address] [address] David Magana Globulin (S) [Mass/Vol] 2.9 g/dL Normal [facility] Comment on above: Performed By: #### M ERICK Faith, PHOS #### [facility] [address] [address] [address] David Magana Glucose [Mass/Vol] 205 mg/dL Critically high 74-106 [facility] Comment on above: Performed By: #### M ERICK Faith, PHOS #### [facility] [address] [place] [address] Dr. David Magana Potassium [Moles/Vol] 4.0 mmol/L Normal 3.5-5.1 [facility] Comment on above: Performed By: #### ERICK Jacques, PHOS #### [facility] [address] [place] [address] Dr. David Magana Protein [Mass/Vol] 5.5 g/dL Critically low 6.4-8.2 [facility] Comment on above: Performed By: #### ERICK Jacques, PHOS #### [facility] [address] [place] [address] Dr. David Magana Sodium [Moles/Vol] 138 mmol/L Normal 136-145 [facility] Comment on above: Performed By: #### ERICK Jacques, PHOS #### [facility] [address] [place] [address] Dr. David Magana Urea nitrogen [Mass/Vol] 36.0 mg/dL Critically high 7.0-18.0 [facility] Comment on above: Performed By: #### ERICK Jacques, PHOS #### [facility] [address] [place] [address] Dr. David Magana Urea nitrogen/Creatinine [Mass ratio] 28.1 mg/mg Normal [facility] Comment on above: Performed By: #### ERICK Jacques, PHOS #### [facility] [address] [place] [address] Dr. David Magana BNPon 07-21-2022 Natriuretic peptide B (Bld) [Mass/Vol] 3485.0 pg/mL Critically high <=1,800.0 [facility] Comment on above: Result Comment: repe ated Performed By: #### A 1C #### [facility] [address] [address] [address] David Magana CBC AUTO DIFFon 07-21-2022 BASO # 0.0 103/ul Normal 0.0-0.1 [facility] Comment on above: Performed By: #### C BC #### [facility] [address] [address] [address] David Magana Basophils/100 WBC (Bld) 0.3 % Normal 0.2-2.0 [facility] Comment on above: Performed By: #### C BC #### [facility] [address] [address] [address] David Magana EO # 0.2 103/ul Normal 0.0-0.7 [facility] Comment on above: Performed By: #### C BC #### [facility] [address] [place] [address] Dr. David Magana Eosinophils/100 WBC (Bld) 1.9 % Normal 0.9-7.0 [facility] Comment on above: Performed By: #### C BC #### [facility] [address] [address] [address] David Magana Erythrocyte distribution width (RBC) [Ratio] 13.4 % Normal 11.0-15.0 [facility] Comment on above: Performed By: #### C BC #### [facility] [address] [place] [address] Dr. David Magana Hematocrit (Bld) [Volume fraction] 42.5 % Normal 42.0-54.0 [facility] Comment on above: Performed By: #### C BC #### [facility] [address] [address] [address] David Magana Hemoglobin (Bld) [Mass/Vol] 14.2 g/dL Normal 14.0-18.0 [facility] Comment on above: Performed By: #### C BC #### [facility] [address] [address] [address] David Magana IG # 0.22 10e3/ul Critically high 0.00-0.03 [facility] Comment on above: Performed By: #### C BC #### [facility] [address] [address] [address] David Magana IG % 2.1 % Critically high 0.0-0.5 [place] Comment on above: Performed By: #### C BC #### [facility] [address] [address] [address] David Magana LYMPH # 0.8 103/ul Critically low 1.2-3.8 [facility] Comment on above: Performed By: #### C BC #### [facility] [address] [place] [address] Dr. David Magana Lymphocytes/100 WBC (Bld) 7.7 % Critically low 20.5-60.0 [facility] Comment on above: Performed By: #### C BC #### [facility] [address] [place] [address] Dr. David Magana MANUAL DIFF REQ NO Normal [place] Comment on above: Performed By: #### C BC #### [facility] [address] [address] [address] David Magana MCH (RBC) [Entitic mass] 33.0 pg Normal 25.9-34.0 [facility] Comment on above: Performed By: #### C BC #### [facility] [address] [place] [address] Dr. David Magana MCHC (RBC) [Mass/Vol] 33.4 g/dL Normal 29.9-35.2 [facility] Comment on above: Performed By: #### C BC #### [facility] [address] [place] [address] Dr. David Magana MCV (RBC) [Entitic vol] 98.8 fL Critically high 80.0-94.0 [facility] Comment on above: Performed By: #### C BC #### [facility] [address] [place] [address] Dr. David Magana MONO # 1.0 103/ul Critically high 0.3-0.8 [place] Comment on above: Performed By: #### C BC #### [facility] [address] [address] [address] David Magana Monocytes/100 WBC (Bld) 9.7 % Normal 1.7-12.0 [facility] Comment on above: Performed By: #### C BC #### [facility] [address] [address] [address] David Magana NEUT # 8.1 103/ul Critically high 1.4-6.5 [place] Comment on above: Performed By: #### C BC #### [facility] [address] [place] [address] Dr. David Magana Neutrophils/100 WBC (Bld) 78.3 % Critically high 43.0-75.0 [facility] Comment on above: Performed By: #### C BC #### [facility] [address] [place] [address] Dr. David Magana Platelet mean volume (Bld) [Entitic vol] 10.7 fL Normal 9.5-13.5 [facility] Comment on above: Performed By: #### C BC #### [facility] [address] [place] [address] Dr. David Magana PLT 177 103/ul Normal 150-450 [facility] Comment on above: Performed By: #### C BC #### [facility] [address] [place] [address] Dr. David Magana RBC 4.30 106/ul Critically low 4.70-6.10 [place] Comment on above: Performed By: #### C BC #### [facility] [address] [place] [address] Dr. David Magana WBC 10.4 103/ul Normal 4.0-11.0 [facility] Comment on above: Performed By: #### C BC #### [facility] [address] [place] [address] Dr. David Magana PROF 14(COMP METB)on 022 Albumin [Mass/Vol] 2.6 g/dL Critically low 3.4-5.0 [facility] Comment on above: Performed By: #### A 1C #### [facility] [address] [address] [address] David Magana Albumin/Globulin [Mass ratio] 1.0 {ratio} Normal [facility] Comment on above: Performed By: #### A 1C #### [facility] [address] [place] [address] Dr. David Magana ALP [Catalytic activity/Vol] 50 U/L Normal 46-116 [facility] Comment on above: Performed By: #### A 1C #### [facility] [address] [place] [address] Dr. David Magana ALT [Catalytic activity/Vol] 28 U/L Normal 16-63 [facility] Comment on above: Performed By: #### A 1C #### [facility] [address] [place] [address] Dr. David Magana Anion gap [Moles/Vol] 11.4 mmol/L Normal [facility] Comment on above: Performed By: #### A 1C #### [facility] [address] [place] [address] Dr. David Magana AST [Catalytic activity/Vol] 13 U/L Critically low 15-37 [facility] Comment on above: Performed By: #### A 1C #### [facility] [address] [place] [address] Dr. David Magana Bilirubin [Mass/Vol] 0.4 mg/dL Normal 0.2-1.0 [facility] Comment on above: Performed By: #### A 1C #### [facility] [address] [place] [address] Dr. David Magana Calcium [Mass/Vol] 8.4 mg/dL Critically low 8.5-10.1 [facility] Comment on above: Performed By: #### A 1C #### [facility] [address] [place] [address] Dr. David Magana Chloride [Moles/Vol] 107 mmol/L Normal 98-107 [facility] Comment on above: Performed By: #### A 1C #### [facility] [address] [address] [address] David Magana CO2 [Moles/Vol] 24.6 mmol/L Normal 21.0-32.0 [facility] Comment on above: Performed By: #### A 1C #### [facility] [address] [place] [address] Dr. David Magana Creatinine [Mass/Vol] 1.26 mg/dL Normal 0.70-1.30 [facility] Comment on above: Performed By: #### A 1C #### [facility] [address] [place] [address] Dr. David Magana EGFR-AF BOTSWANAN >60 Normal >=60 [facility] Comment on above: Performed By: #### A 1C #### [facility] [address] [place] [address] Dr. David Magana EGFR-NON AF BOTSWANAN 55 mL/min/1.73m2 Critically low >=60 [facility] Comment on above: Performed By: #### A 1C #### [facility] [address] [place] [address] Dr. David Magana Globulin (S) [Mass/Vol] 2.7 g/dL Normal [facility] Comment on above: Performed By: #### A 1C #### [facility] [address] [place] [address] Dr. David Magana Glucose [Mass/Vol] 203 mg/dL Critically high 74-106 T [facility] Comment on above: Performed By: #### A 1C #### [facility] [address] [place] [address] Dr. David Magana Potassium [Moles/Vol] 4.0 mmol/L Normal 3.5-5.1 [facility] Comment on above: Performed By: #### A 1C #### [facility] [address] [place] [address] Dr. David Magana Protein [Mass/Vol] 5.3 g/dL Critically low 6.4-8.2 [facility] Comment on above: Performed By: #### A 1C #### [facility] [address] [place] [address] Dr. David Magana Sodium [Moles/Vol] 139 mmol/L Normal 136-145 [facility] Comment on above: Performed By: #### A 1C #### [facility] [address] [place] [address] Dr. David Magana Urea nitrogen [Mass/Vol] 33.0 mg/dL Critically high 7.0-18.0 [facility] Comment on above: Performed By: #### A 1C #### [facility] [address] [place] [address] Dr. David Magana Urea nitrogen/Creatinine [Mass ratio] 26.2 mg/mg Normal [facility] Comment on above: Performed By: #### A 1C #### [facility] [address] [place] [address] Dr. David Magana BNPon 07-20-2022 Natriuretic peptide B (Bld) [Mass/Vol] 7478.0 pg/mL Critically high <=1,800.0 [facility] Comment on above: Performed By: #### A 1C #### [facility] [address] [place] [address] Dr. David Magana CBC AUTO DIFFon 07-20-2022 BASO # 0.1 103/ul Normal 0.0-0.1 [facility] Comment on above: Performed By: #### ERICK Jacques, PHOS #### [facility] [address] [place] [address] Dr. David Magana Basophils/100 WBC (Bld) 0.8 % Normal 0.2-2.0 [facility] Comment on above: Performed By: #### ERICK Jacques, PHOS #### [facility] [address] [place] [address] Dr. Daivd Magana EO # 0.1 103/ul Normal 0.0-0.7 [facility] Comment on above: Performed By: #### ERICK Jacques, PHOS #### [facility] [address] [place] [address] Dr. David Magana Eosinophils/100 WBC (Bld) 0.6 % Critically low 0.9-7.0 [facility] Comment on above: Performed By: #### M ERICK Faith, PHOS #### [facility] [address] [place] [address] Dr. David Magana Erythrocyte distribution width (RBC) [Ratio] 13.4 % Normal 11.0-15.0 [facility] Comment on above: Performed By: #### M ERICK Faith, PHOS #### [facility] [address] [place] [address] Dr. David Magana Hematocrit (Bld) [Volume fraction] 43.2 % Normal 42.0-54.0 [facility] Comment on above: Performed By: #### ERICK Jacques, PHOS #### [facility] [address] [place] [address] Dr. David Magana Hemoglobin (Bld) [Mass/Vol] 14.2 g/dL Normal 14.0-18.0 [facility] Comment on above: Performed By: #### ERICK Jacques, PHOS #### [facility] [address] [place] [address] Dr. David Magana IG # 0.21 10e3/ul Critically high 0.00-0.03 [facility] Comment on above: Performed By: #### ERICK Jacques, PHOS #### [facility] [address] [place] [address] Dr. David Magana IG % 2.0 % Critically high 0.0-0.5 [place] Comment on above: Performed By: #### ERICK Jacques, PHOS #### [facility] [address] [place] [address] Dr. David Magana LYMPH # 0.8 103/ul Critically low 1.2-3.8 [facility] Comment on above: Performed By: #### ERICK Jacques, PHOS #### [facility] [address] [place] [address] Dr. David Magana Lymphocytes/100 WBC (Bld) 7.7 % Critically low 20.5-60.0 [facility] Comment on above: Performed By: #### ERICK Jacques, PHOS #### [facility] [address] [place] [address] Dr. David Magana MANUAL DIFF REQ NO Normal [facility] Comment on above: Performed By: #### ERICK Jacques, PHOS #### [facility] [address] [place] [address] Dr. David Magana MCH (RBC) [Entitic mass] 33.2 pg Normal 25.9-34.0 [facility] Comment on above: Performed By: #### ERICK Jacques, PHOS #### [facility] [address] [place] [address] Dr. David Magana MCHC (RBC) [Mass/Vol] 32.9 g/dL Normal 29.9-35.2 [facility] Comment on above: Performed By: #### ERICK Jacques, PHOS #### [facility] [address] [place] [address] Dr. David Magana MCV (RBC) [Entitic vol] 100.9 fL Critically high 80.0-94.0 [facility] Comment on above: Performed By: #### REICK Jacques, PHOS #### [facility] [address] [place] [address] Dr. David Magana MONO # 1.0 103/ul Critically high 0.3-0.8 [facility] Comment on above: Performed By: #### ERICK Jacques, PHOS #### [facility] [address] [place] [address] Dr. David Magana Monocytes/100 WBC (Bld) 10.0 % Normal 1.7-12.0 [facility] Comment on above: Performed By: #### M Marcell BMP, PHOS #### [facility] [address] [place] [address] Dr. David Magana NEUT # 8.1 103/ul Critically high 1.4-6.5 [facility] Comment on above: Performed By: #### M Marcell BMP, PHOS #### [facility] [address] [place] [address] Dr. David Magana Neutrophils/100 WBC (Bld) 78.9 % Critically high 43.0-75.0 [facility] Comment on above: Performed By: #### ERICK Jacques, PHOS #### [facility] [address] [place] [address] Dr. David Magana Platelet mean volume (Bld) [Entitic vol] 10.8 fL Normal 9.5-13.5 [facility] Comment on above: Performed By: #### ERICK Jacques, PHOS #### [facility] [address] [place] [address] Dr. David Magana PLT 172 103/ul Normal 150-450 [facility] Comment on above: Performed By: #### ERICK Jacques, PHOS #### [facility] [address] [place] [address] Dr. David Magana RBC 4.28 106/ul Critically low 4.70-6.10 [place] Comment on above: Performed By: #### ERICK Jacques, PHOS #### [facility] [address] [place] [address] Dr. David Magana WBC 10.3 103/ul Normal 4.0-11.0 [facility] Comment on above: Performed By: #### ERICK Jacques, PHOS #### [facility] [address] [place] [address] Dr. David Magana CULTURE URINEon 07-20-2022 CULTURE URINE Isolate 1 Escherichia coli 15,000 cfu/mL of ORGANISM 1 Escherichia coli ANTIBIOTIC M.I.C RX STATUS Ampicillin >=32 R F Ampicillin/Sulbactam >=32 R F Piperacillin/Tazobacta m <=4 S F Cefazolin <=4 S F Ceftazidime <=1 S F Ceftriaxone <=1 S F Ertapenem <=0.5 S F Imipenem <=0.25 S F Amikacin <=2 S F Gentamicin <=1 S F Tobramycin <=1 S F Ciprofloxacin >=4 R F Levofloxacin >=8 R F Nitrofurantoin <=16 S F Trimethoprim/Sulfameth oxazole >=320 R F Normal [facility] Comment on above: Performed By: #### ERICK Jacques, PHOS #### [facility] [address] [place] [address] Dr. David Magana PROF 14(COMP METB)on 022 Albumin [Mass/Vol] 2.6 g/dL Critically low 3.4-5.0 [facility] Comment on above: Performed By: #### A 1C #### [facility] [address] [place] [address] Dr. David Magana Albumin/Globulin [Mass ratio] 0.9 {ratio} Normal [facility] Comment on above: Performed By: #### A 1C #### [facility] [address] [place] [address] Dr. David Magana ALP [Catalytic activity/Vol] 48 U/L Normal 46-116 [facility] Comment on above: Performed By: #### A 1C #### [facility] [address] [place] [address] Dr. David Magana ALT [Catalytic activity/Vol] 27 U/L Normal 16-63 [facility] Comment on above: Performed By: #### A 1C #### [facility] [address] [place] [address] Dr. David Magana Anion gap [Moles/Vol] 13.4 mmol/L Normal [facility] Comment on above: Performed By: #### A 1C #### [facility] [address] [place] [address] Dr. David Magana AST [Catalytic activity/Vol] 22 U/L Normal 15-37 [facility] Comment on above: Performed By: #### A 1C #### [facility] [address] [place] [address] Dr. David Magana Bilirubin [Mass/Vol] 0.5 mg/dL Normal 0.2-1.0 [facility] Comment on above: Performed By: #### A 1C #### [facility] [address] [place] [address] Dr. David Magana Calcium [Mass/Vol] 8.3 mg/dL Critically low 8.5-10.1 [facility] Comment on above: Performed By: #### A 1C #### [facility] [address] [address] [address] David Magana Chloride [Moles/Vol] 105 mmol/L Normal 98-107 [facility] Comment on above: Performed By: #### A 1C #### [facility] [address] [address] [address] David Magana CO2 [Moles/Vol] 21.0 mmol/L Normal 21.0-32.0 [facility] Comment on above: Performed By: #### A 1C #### [facility] [address] [place] [address] Dr. David Magana Creatinine [Mass/Vol] 1.38 mg/dL Critically high 0.70-1.30 [facility] Comment on above: Performed By: #### A 1C #### [facility] [address] [place] [address] Dr. David Magana EGFR-AF BOTSWANAN 60 mL/min/1.73m2 Normal >=60 [facility] Comment on above: Performed By: #### A 1C #### [facility] [address] [place] [address] Dr. David Magana EGFR-NON AF BOTSWANAN 49 mL/min/1.73m2 Critically low >=60 [facility] Comment on above: Performed By: #### A 1C #### [facility] [address] [place] [address] Dr. David Magana Globulin (S) [Mass/Vol] 2.8 g/dL Normal [facility] Comment on above: Performed By: #### A 1C #### [facility] [address] [place] [address] Dr. David Magana Glucose [Mass/Vol] 156 mg/dL Critically high 74-106 [facility] Comment on above: Performed By: #### A 1C #### [facility] [address] [place] [address] Dr. David Magana Potassium [Moles/Vol] 4.4 mmol/L Normal 3.5-5.1 [facility] Comment on above: Performed By: #### A 1C #### [facility] [address] [place] [address] Dr. David Magana Protein [Mass/Vol] 5.4 g/dL Critically low 6.4-8.2 [facility] Comment on above: Performed By: #### A 1C #### [facility] [address] [place] [address] Dr. David Magana Sodium [Moles/Vol] 135 mmol/L Critically low 136-145 [facility] Comment on above: Performed By: #### A 1C #### [facility] [address] [place] [address] Dr. David Magana Urea nitrogen [Mass/Vol] 40.0 mg/dL Critically high 7.0-18.0 [facility] Comment on above: Performed By: #### A 1C #### [facility] [address] [place] [address] Dr. David Magana Urea nitrogen/Creatinine [Mass ratio] 29.0 mg/mg Normal [facility] Comment on above: Performed By: #### A 1C #### [facility] [address] [place] [address] Dr. David Magana BNPon 07-19-2022 Natriuretic peptide B (Bld) [Mass/Vol] 08920.0 pg/mL Critically high <=1,800.0 [facility] Comment on above: Performed By: #### C VDTB #### [facility] [address] [place] [address] Dr. David Magana CBC AUTO DIFFon 07-19-2022 BASO # 0.0 103/ul Normal 0.0-0.1 [facility] Comment on above: Performed By: #### C BC #### [facility] [address] [place] [address] Dr. David Magana Basophils/100 WBC (Bld) 0.3 % Normal 0.2-2.0 [facility] Comment on above: Performed By: #### C BC #### [facility] [address] [place] [address] Dr. David Magana EO # 0.0 103/ul Normal 0.0-0.7 [facility] Comment on above: Performed By: #### C BC #### [facility] [address] [address] [address] David Magana Eosinophils/100 WBC (Bld) 0.2 % Critically low 0.9-7.0 [facility] Comment on above: Performed By: #### C BC #### [facility] [address] [address] [address] David Magana Erythrocyte distribution width (RBC) [Ratio] 13.4 % Normal 11.0-15.0 [facility] Comment on above: Performed By: #### C BC #### [facility] [address] [place] [address] Dr. David Magana Hematocrit (Bld) [Volume fraction] 43.4 % Normal 42.0-54.0 [facility] Comment on above: Performed By: #### C BC #### [facility] [address] [place] [address] Dr. David Magana Hemoglobin (Bld) [Mass/Vol] 14.6 g/dL Normal 14.0-18.0 [facility] Comment on above: Performed By: #### C BC #### [facility] [address] [place] [address] Dr. David Magana IG # 0.18 10e3/ul Critically high 0.00-0.03 [facility] Comment on above: Performed By: #### C BC #### [facility] [address] [place] [address] Dr. David Magana IG % 1.5 % Critically high 0.0-0.5 [facility] Comment on above: Performed By: #### C BC #### [facility] [address] [place] [address] Dr. David Magana LYMPH # 0.8 103/ul Critically low 1.2-3.8 [facility] Comment on above: Performed By: #### C BC #### [facility] [address] [place] [address] Dr. David Magana Lymphocytes/100 WBC (Bld) 6.6 % Critically low 20.5-60.0 [facility] Comment on above: Performed By: #### C BC #### [facility] [address] [place] [address] Dr. David Magana MANUAL DIFF REQ NO Normal [facility] Comment on above: Performed By: #### C BC #### [facility] [address] [place] [address] Dr. David Magana MCH (RBC) [Entitic mass] 33.7 pg Normal 25.9-34.0 [facility] Comment on above: Performed By: #### C BC #### [facility] [address] [place] [address] Dr. David Magana MCHC (RBC) [Mass/Vol] 33.6 g/dL Normal 29.9-35.2 [facility] Comment on above: Performed By: #### C BC #### [facility] [address] [place] [address] Dr. David Magana MCV (RBC) [Entitic vol] 100.2 fL Critically high 80.0-94.0 [facility] Comment on above: Performed By: #### C BC #### [facility] [address] [place] [address] Dr. David Magana MONO # 1.1 103/ul Critically high 0.3-0.8 [place] Comment on above: Performed By: #### C BC #### [facility] [address] [place] [address] Dr. David Magana Monocytes/100 WBC (Bld) 9.3 % Normal 1.7-12.0 [facility] Comment on above: Performed By: #### C BC #### [facility] [address] [place] [address] Dr. David Magana NEUT # 9.6 103/ul Critically high 1.4-6.5 [facility] Comment on above: Performed By: #### C BC #### [facility] [address] [place] [address] Dr. David Magana Neutrophils/100 WBC (Bld) 82.1 % Critically high 43.0-75.0 [facility] Comment on above: Performed By: #### C BC #### [facility] [address] [place] [address] Dr. David Magana Platelet mean volume (Bld) [Entitic vol] 10.8 fL Normal 9.5-13.5 [facility] Comment on above: Performed By: #### C BC #### [facility] [address] [address] [address] David Magana PLT 202 103/ul Normal 150-450 [facility] Comment on above: Performed By: #### C BC #### [facility] [address] [place] [address] Dr. David Magana RBC 4.33 106/ul Critically low 4.70-6.10 [facility] Comment on above: Performed By: #### C BC #### [facility] [address] [place] [address] Dr. David Magana WBC 11.7 103/ul Critically high 4.0-11.0 [facility] Comment on above: Performed By: #### C BC #### [facility] [address] [place] [address] Dr. David Magana PROF 14(COMP METB)on 022 Albumin [Mass/Vol] 3.4 g/dL Normal 3.4-5.0 [facility] Comment on above: Performed By: #### A 1C #### [facility] [address] [place] [address] Dr. David Magana Albumin/Globulin [Mass ratio] 1.1 {ratio} Normal [facility] Comment on above: Performed By: #### A 1C #### [facility] [address] [place] [address] Dr. David Magana ALP [Catalytic activity/Vol] 63 U/L Normal 46-116 [facility] Comment on above: Performed By: #### A 1C #### [facility] [address] [place] [address] Dr. David Magana ALT [Catalytic activity/Vol] 34 U/L Normal 16-63 [facility] Comment on above: Performed By: #### A 1C #### [facility] [address] [address] [address] David Magana Anion gap [Moles/Vol] 20.9 mmol/L Normal [facility] Comment on above: Performed By: #### A 1C #### [facility] [address] [place] [address] Dr. David Magana AST [Catalytic activity/Vol] 18 U/L Normal 15-37 [facility] Comment on above: Performed By: #### A 1C #### [facility] [address] [place] [address] Dr. David Magana Bilirubin [Mass/Vol] 0.5 mg/dL Normal 0.2-1.0 [facility] Comment on above: Performed By: #### A 1C #### [facility] [address] [place] [address] Dr. David Magana Calcium [Mass/Vol] 8.5 mg/dL Normal 8.5-10.1 [facility] Comment on above: Performed By: #### A 1C #### [facility] [address] [place] [address] Dr. David Magana Chloride [Moles/Vol] 99 mmol/L Normal 98-107 [facility] Comment on above: Performed By: #### A 1C #### [facility] [address] [place] [address] Dr. David Magana CO2 [Moles/Vol] 19.1 mmol/L Critically low 21.0-32.0 [facility] Comment on above: Performed By: #### A 1C #### [facility] [address] [place] [address] Dr. David Magana Creatinine [Mass/Vol] 1.80 mg/dL Critically high 0.70-1.30 [facility] Comment on above: Performed By: #### A 1C #### [facility] [address] [place] [address] Dr. David Magana EGFR-AF BOTSWANAN 44 mL/min/1.73m2 Critically low >=60 [facility] Comment on above: Performed By: #### A 1C #### [facility] [address] [place] [address] Dr. David Magana EGFR-NON AF BOTSWANAN 36 mL/min/1.73m2 Critically low >=60 [facility] Comment on above: Performed By: #### A 1C #### [facility] [address] [place] [address] Dr. David Magana Globulin (S) [Mass/Vol] 3.2 g/dL Normal [facility] Comment on above: Performed By: #### A 1C #### [facility] [address] [address] [address] David Magana Glucose [Mass/Vol] 287 mg/dL Critically high 74-106 T [facility] Comment on above: Performed By: #### A 1C #### [facility] [address] [place] [address] Dr. David Magana Potassium [Moles/Vol] 5.0 mmol/L Normal 3.5-5.1 [facility] Comment on above: Performed By: #### A 1C #### [facility] [address] [place] [address] Dr. David Magana Protein [Mass/Vol] 6.6 g/dL Normal 6.4-8.2 [facility] Comment on above: Performed By: #### A 1C #### [facility] [address] [place] [address] Dr. David Magana Sodium [Moles/Vol] 134 mmol/L Critically low 136-145 [facility] Comment on above: Performed By: #### A 1C #### [facility] [address] [place] [address] Dr. David Magana Urea nitrogen [Mass/Vol] 51.0 mg/dL Critically high 7.0-18.0 [facility] Comment on above: Performed By: #### A 1C #### [facility] [address] [place] [address] Dr. David Magana Urea nitrogen/Creatinine [Mass ratio] 28.3 mg/mg Normal [facility] Comment on above: Performed By: #### A 1C #### [facility] [address] [place] [address] Dr. David Magana [facility] 02 MODE NASAL CANNULA Normal [facility] Comment on above: Performed By: #### A 1C #### [facility] [address] [place] [address] Dr. David Magana ALLENS TEST Positive [facility] Comment on above: Performed By: #### A 1C #### [facility] [address] [place] [address] Dr. David Magana Base excess Calc (Bld) [Moles/Vol] -9.0000 mmol/L Critically low -2.0-2.0 [facility] Comment on above: Performed By: #### A 1C #### [facility] [address] [place] [address] Dr. David Magana BIPAP PRESSURE [facility] Comment on above: Performed By: #### A 1C #### [facility] [address] [place] [address] Dr. David Magana CPAP [facility] Comment on above: Performed By: #### A 1C #### [facility] [address] [place] [address] Dr. David Magana FIO2 [facility] Comment on above: Performed By: #### A 1C #### [facility] [address] [place] [address] Dr. David Magana HCO3 (Bld) [Moles/Vol] 18.4 mmol/L Critically low 22.0-26.0 [facility] Comment on above: Performed By: #### A 1C #### [facility] [address] [place] [address] Dr. David Magana LPM 1.5 [facility] Comment on above: Performed By: #### A 1C #### [facility] [address] [place] [address] Dr. David Magana MINUTE VOLUME Normal [facility] Comment on above: Performed By: #### A 1C #### [facility] [address] [place] [address] Dr. David Magana Oxygen (Bld) [Partial pressure] 69.5 mm[Hg] Critically low 80.0-100.0 [facility] Comment on above: Performed By: #### A 1C #### [facility] [address] [place] [address] Dr. David Magana Oxygen saturation in Blood 94.2 % Critically low 95.0-100.0 [facility] Comment on above: Performed By: #### A 1C #### [facility] [address] [place] [address] Dr. David Magana PCO2 29.6 mmHg Critically low 35.0-45.0 [facility] Comment on above: Performed By: #### A 1C #### [facility] [address] [place] [address] Dr. David Magana [facility] Comment on above: Performed By: #### A 1C #### [facility] [address] [place] [address] Dr. David Magana pH (Bld) 7.355 [pH] Normal 7.350-7.450 [facility] Comment on above: Performed By: #### A 1C #### [facility] [address] [place] [address] Dr. David Magana [facility] Comment on above: Performed By: #### A 1C #### [facility] [address] [place] [address] Dr. David Magana [facility] Comment on above: Performed By: #### A 1C #### [facility] [address] [place] [address] Dr. David Magana PUNCTURE SITE LR [facility] Comment on above: Performed By: #### A 1C #### [facility] [address] [place] [address] Dr. David Magana RATE [facility] Comment on above: Performed By: #### A 1C #### [facility] [address] [place] [address] Dr. David Magana VENT MODE [facility] Comment on above: Performed By: #### A 1C #### [facility] [address] [place] [address] Dr. David Magana [facility] Comment on above: Performed By: #### A 1C #### [facility] [address] [place] [address] Dr. David Magana BNPon 07-18-2022 Natriuretic peptide B (Bld) [Mass/Vol] 7047.0 pg/mL Critically high <=1,800.0 [facility] Comment on above: Performed By: #### C VDTBH #### [facility] [address] [place] [address] Dr. David Magana CARDIAC BARRIE 3-6on 2 CK [Catalytic activity/Vol] 396 U/L Critically high 39-308 [facility] Comment on above: Performed By: #### M ERICK Faith, PHOS #### [facility] [address] [place] [address] Dr. David Maagna CK.MB [Mass/Vol] 2.94 ng/mL Normal <=3.60 [facility] Comment on above: Performed By: #### ERICK Jacques, PHOS #### [facility] [address] [place] [address] Dr. David Magana HSTROP 11.1 pg/mL Normal 4.0-76.1 [facility] Comment on above: Result Comment: CUT- OFF POINTS HAVE BEEN ESTABLISHED BASED ON THE FOURTH UNIVERSAL DEFINITIONS OF MYOCARDIAL INFARCTION. THE UPPER REFERENCE LIMIT (URL) OF TROPONIN, DEFINED THE 99TH PERCENTILE OF cTnI DISTRIBUTION IN A REFERENCE POPULATION, HAS BEEN CONFIRMED THE DECISION THRESHOLD FOR CA DIAGNOSIS. Performed By: #### ERICK Jacques, PHOS #### [facility] [address] [place] [address] Dr. David Magana CK [Catalytic activity/Vol] 58 U/L Normal 39-308 [facility] Comment on above: Performed By: #### M ERICK Faith, PHOS #### [facility] [address] [place] [address] Dr. David Magana CK.MB [Mass/Vol] 1.71 ng/mL Normal <=3.60 [facility] Comment on above: Performed By: #### ERICK Jacques, PHOS #### [facility] [address] [address] [address] David Magana HSTROP 10.6 pg/mL Normal 4.0-76.1 [facility] Comment on above: Result Comment: CUT- OFF POINTS HAVE BEEN ESTABLISHED BASED ON THE FOURTH UNIVERSAL DEFINITIONS OF MYOCARDIAL INFARCTION. THE UPPER REFERENCE LIMIT (URL) OF TROPONIN, DEFINED THE 99TH PERCENTILE OF cTnI DISTRIBUTION IN A REFERENCE POPULATION, HAS BEEN CONFIRMED THE DECISION THRESHOLD FOR CA DIAGNOSIS. Performed By: #### M G BMP, PHOS #### [facility] [address] [address] [address] David Magana CBC AUTO DIFFon 07-18-2022 BASO # 0.0 103/ul Normal 0.0-0.1 [facility] Comment on above: Performed By: #### M Marcell BMP, PHOS #### [facility] [address] [place] [address] Dr. David Magana Basophils/100 WBC (Bld) 0.2 % Normal 0.2-2.0 [facility] Comment on above: Performed By: #### M G BMP, PHOS #### [facility] [address] [address] [address] David Magana EO # 0.0 103/ul Normal 0.0-0.7 [facility] Comment on above: Performed By: #### M G BMP, PHOS #### [facility] [address] [address] [address] David Magana Eosinophils/100 WBC (Bld) 0.2 % Critically low 0.9-7.0 [facility] Comment on above: Performed By: #### M G, BMP, PHOS #### [facility] [address] [address] [address] David Magana Erythrocyte distribution width (RBC) [Ratio] 13.2 % Normal 11.0-15.0 [facility] Comment on above: Performed By: #### M G, BMP, PHOS #### [facility] [address] [address] [address] David Magana Hematocrit (Bld) [Volume fraction] 43.8 % Normal 42.0-54.0 [facility] Comment on above: Performed By: #### M ERICK Faith, PHOS #### [facility] [address] [place] [address] Dr. David Magana Hemoglobin (Bld) [Mass/Vol] 14.5 g/dL Normal 14.0-18.0 [facility] Comment on above: Performed By: #### ERICK Jacques, PHOS #### [facility] [address] [place] [address] Dr. David Magana IG # 0.15 10e3/ul Critically high 0.00-0.03 [facility] Comment on above: Performed By: #### ERICK Jacques, PHOS #### [facility] [address] [place] [address] Dr. David Magana IG % 1.3 % Critically high 0.0-0.5 [place] Comment on above: Performed By: #### ERICK Jacques, PHOS #### [facility] [address] [place] [address] Dr. David Magana LYMPH # 0.5 103/ul Critically low 1.2-3.8 [facility] Comment on above: Performed By: #### ERICK Jacques, PHOS #### [facility] [address] [place] [address] Dr. David Magana Lymphocytes/100 WBC (Bld) 3.8 % Critically low 20.5-60.0 [facility] Comment on above: Performed By: #### ERICK Jacques, PHOS #### [facility] [address] [place] [address] Dr. David Magana MANUAL DIFF REQ NO Normal [facility] Comment on above: Performed By: #### ERICK Jacques, PHOS #### [facility] [address] [place] [address] Dr. David Magana MCH (RBC) [Entitic mass] 32.7 pg Normal 25.9-34.0 [facility] Comment on above: Performed By: #### ERICK Jacques, PHOS #### [facility] [address] [place] [address] Dr. David Magana MCHC (RBC) [Mass/Vol] 33.1 g/dL Normal 29.9-35.2 [facility] Comment on above: Performed By: #### M G, BMP, PHOS #### [facility] [address] [place] [address] Dr. David Magana MCV (RBC) [Entitic vol] 98.9 fL Critically high 80.0-94.0 [facility] Comment on above: Performed By: #### M G, BMP, PHOS #### [facility] [address] [place] [address] Dr. David Magana MONO # 0.7 103/ul Normal 0.3-0.8 [facility] Comment on above: Performed By: #### M G, BMP, PHOS #### [facility] [address] [place] [address] Dr. David Magana Monocytes/100 WBC (Bld) 5.7 % Normal 1.7-12.0 [facility] Comment on above: Performed By: #### M G, BMP, PHOS #### [facility] [address] [place] [address] Dr. David Magana NEUT # 10.4 103/ul Critically high 1.4-6.5 [facility] Comment on above: Performed By: #### M G, BMP, PHOS #### [facility] [address] [place] [address] Dr. David Magana Neutrophils/100 WBC (Bld) 88.8 % Critically high 43.0-75.0 [facility] Comment on above: Performed By: #### M G, BMP, PHOS #### [facility] [address] [place] [address] Dr. David Magana Platelet mean volume (Bld) [Entitic vol] 11.0 fL Normal 9.5-13.5 [facility] Comment on above: Performed By: #### M G, BMP, PHOS #### [facility] [address] [place] [address] Dr. David Magana PLT 198 103/ul Normal 150-450 [facility] Comment on above: Performed By: #### M ERICK Faith, PHOS #### [facility] [address] [place], [place] [address] Dr. David Magana RBC 4.43 106/ul Critically low 4.70-6.10 [facility] Comment on above: Performed By: #### M ERICK Faith, PHOS #### [facility] [address] [place], [place] [address] Dr. David Magana WBC 11.8 103/ul Critically high 4.0-11.0 [facility] Comment on above: Performed By: #### M ERICK Faith, PHOS #### [facility] [address] [place], [place] [address] HEAD WO CONon 07-18-2022 CT HEAD WO CON INDICATION: 82 years old; Male. Change in mental status. TECHNIQUE: CT Head (ax/cor/sag reformats). Ionizing radiation dose reduced via iterative reconstruction/FBP blend and body size kV/mA adjustment. Comparison: None FINDINGS: POSTOPERATIVE CHANGES: None. BRAIN PARENCHYMA: No hemorrhage, mass or acute infarct. Normal thompson/white differentiation. VENTRICLES/EXTRA-AXIAL SPACES: Widened, consistent with atrophy. SINUSES/MASTOIDS: Visualized [...] FRANCISCO ZELAYA Date: 2022-07-18 05:12 Normal [facility] Covid-19 PCR (CVDTBH)on SARS-CoV-2 (COVID-19) RNA SULTANA+probe Ql (Unsp spec) Detected Critically abnormal NOT DETECTED [facility] Comment on above: Result Comment: This test is not yet approved or cleared by the [place] FDA. When there are no FDA-approved or cleared tests available, and other criteria are met, FDA can make tests available under an emergency access mechanism called an Emergency Use Authorization (EUA). The EUA for this test is supported by the Machine [employer] of Health and Human Service's declaration that [...] used). Performed By: #### C VDTBH #### [facility] [address] [place] [address] Dr. David Magana D-DIMERon 07-18-2022 D-DIMER 1.69 mg/L FEU Critically high <=0.59 [facility] Comment on above: Performed By: #### C BC #### [facility] [address] [place] [address] Dr. David Magana D-DIMER COMMENTS SEE BELOW Normal [facility] Comment on above: Result Comment: Incr [...] hospitalization. Performed By: #### C BC #### [facility] [address] [place] [address] Dr. David Magana POINT OF CARE GLUCOSEon Glucose [Mass/Vol] 329 mg/dL Critically high 74-106 [facility] Comment on above: Performed By: #### P OCGLUC #### [facility] [address] [place] [address] Dr. David Magana Glucose [Mass/Vol] 354 mg/dL Critically high 74-106 [facility] Comment on above: Performed By: #### P OCGLUC #### [facility] [address] [place] [address] Dr. David Magana PROF 14(COMP METB)on 022 Albumin [Mass/Vol] 3.6 g/dL Normal 3.4-5.0 [facility] Comment on above: Performed By: #### C VDTBH #### [facility] [address] [place] [address] Dr. David Magana Albumin/Globulin [Mass ratio] 1.1 {ratio} Normal [facility] Comment on above: Performed By: #### C VDTBH #### [facility] [address] [address] [address] David Magana ALP [Catalytic activity/Vol] 67 U/L Normal 46-116 [facility] Comment on above: Performed By: #### C VDTBH #### [facility] [address] [place] [address] Dr. David Magana ALT [Catalytic activity/Vol] 33 U/L Normal 16-63 [facility] Comment on above: Performed By: #### C VDTBH #### [facility] [address] [place] [address] Dr. David Magana Anion gap [Moles/Vol] 23.5 mmol/L Normal [facility] Comment on above: Performed By: #### C VDTBH #### [facility] [address] [place] [address] Dr. David Magana AST [Catalytic activity/Vol] 13 U/L Critically low 15-37 [facility] Comment on above: Performed By: #### C VDTBH #### [facility] [address] [place] [address] Dr. David Magana Bilirubin [Mass/Vol] 0.6 mg/dL Normal 0.2-1.0 [facility] Comment on above: Performed By: #### C VDTBH #### [facility] [address] [place] [address] Dr. David Magana Calcium [Mass/Vol] 8.4 mg/dL Critically low 8.5-10.1 [facility] Comment on above: Performed By: #### C VDTBH #### [facility] [address] [place] [address] Dr. Daivd Magana Chloride [Moles/Vol] 93 mmol/L Critically low 98-107 [facility] Comment on above: Performed By: #### C VDTBH #### [facility] [address] [place] [address] Dr. David Magana CO2 [Moles/Vol] 17.9 mmol/L Critically low 21.0-32.0 [facility] Comment on above: Performed By: #### C VDTBH #### [facility] [address] [place] [address] Dr. David Magana Creatinine [Mass/Vol] 2.15 mg/dL Critically high 0.70-1.30 [facility] Comment on above: Performed By: #### C VDTBH #### [facility] [address] [place] [address] Dr. David Magana EGFR-AF BOTSWANAN 36 mL/min/1.73m2 Critically low >=60 [facility] Comment on above: Performed By: #### C VDTBH #### [facility] [address] [place] [address] Dr. David Magana EGFR-NON AF BOTSWANAN 30 mL/min/1.73m2 Critically low >=60 [facility] Comment on above: Performed By: #### C VDTBH #### [facility] [address] [place] [address] Dr. David Magana Globulin (S) [Mass/Vol] 3.2 g/dL Normal [facility] Comment on above: Performed By: #### C VDTBH #### [facility] [address] [place] [address] Dr. David Magana Glucose [Mass/Vol] 345 mg/dL Critically high 74-106 [facility] Comment on above: Performed By: #### C VDTBH #### [facility] [address] [place] [address] Dr. David Magana Potassium [Moles/Vol] 5.4 mmol/L Critically high 3.5-5.1 [facility] Comment on above: Performed By: #### C VDTBH #### [facility] [address] [place] [address] Dr. David Magana Performed By: #### K #### [facility] [address] [place] [address] Dr. Dvaid Magana Protein [Mass/Vol] 6.8 g/dL Normal 6.4-8.2 [facility] Comment on above: Performed By: #### C VDTBH #### [facility] [address] [place] [address] Dr. David Magana Sodium [Moles/Vol] 129 mmol/L Critically low 136-145 [facility] Comment on above: Performed By: #### C VDTBH #### [facility] [address] [place] [address] Dr. David Magana Urea nitrogen [Mass/Vol] 65.0 mg/dL Critically high 7.0-18.0 [facility] Comment on above: Performed By: #### C VDTBH #### [facility] [address] [place] [address] Dr. David Magana Urea nitrogen/Creatinine [Mass ratio] 30.2 mg/mg Normal [facility] Comment on above: Performed By: #### C VDTBH #### [facility] [address] [place] [address] Dr. David Magana UA RANDOM W/MICROSCOPICon BACTERIA NONE SEEN Normal NONE SEEN [facility] Comment on above: Performed By: #### M G, BMP, PHOS #### [facility] [address] [place] [address] Dr. David Magnaa Bilirubin Ql (U) Negative Normal NEGATIVE [facility] Comment on above: Performed By: #### M G, BMP, PHOS #### [facility] [address] [place] [address] Dr. David Magana CAST NONE SEEN Normal NONE SEEN [facility] Comment on above: Performed By: #### M G, BMP, PHOS #### [facility] [address] [place] [address] Dr. David Magana Clarity (U) CLEAR Normal CLEAR [facility] Comment on above: Performed By: #### M G, BMP, PHOS #### [facility] [address] [address] [address] David Magana Color (U) LT. YELLOW Normal YELLOW [facility] Comment on above: Performed By: #### M G, BMP, PHOS #### [facility] [address] [address] [address] David Magana Crystals LM Nom (Urine sed) NONE SEEN Normal NONE SEEN [facility] Comment on above: Performed By: #### M G, BMP, PHOS #### [facility] [address] [address] [address] David Magana Epithelial cells LM Ql (Urine sed) RARE Normal NONE SEEN /RARE [facility] Comment on above: Performed By: #### M Marcell, BMP, PHOS #### [facility] [address] [place] [address] Dr. David Magana Glucose Ql (U) 1000 mg/dl Abnormal NEGATIVE [facility] Comment on above: Performed By: #### M Marcell, BMP, PHOS #### [facility] [address] [address] [address] David Magana Hemoglobin Ql (U) Negative Normal NEGATIVE [facility] Comment on above: Performed By: #### M G, BMP, PHOS #### [facility] [address] [place] [address] Dr. David Magana Ketones Ql (U) 15 mg/dl Abnormal NEGATIVE [facility] Comment on above: Performed By: #### M Marcell, BMP, PHOS #### [facility] [address] [place] [address] Dr. David Magana LEUKOCYTES Negative Normal NEGATIVE [facility] Comment on above: Performed By: #### M G, BMP, PHOS #### [facility] [address] [place] [address] Dr. David Magana MUCOUS NONE SEEN Normal NONE SEEN [facility] Comment on above: Performed By: #### M G, BMP, PHOS #### [facility] [address] [address] [address] David Magana Nitrite Ql (U) Negative Normal NEGATIVE [facility] Comment on above: Performed By: #### M G, BMP, PHOS #### [facility] [address] [place] [address] Dr. David Magana pH (U) 5.5 [pH] Normal 5-9 [facility] Comment on above: Performed By: #### M G, BMP, PHOS #### [facility] [address] [place] [address] Dr. David Magana RBC NONE SEEN Abnormal 0-2 [facility] Comment on above: Performed By: #### M G, BMP, PHOS #### [facility] [address] [place] [address] Dr. David Magana SPEC GRAVITY <=1.005 Abnormal 1.005-<=1.02 5 [facility] Comment on above: Performed By: #### M G, BMP, PHOS #### [facility] [address] [place] [address] Dr. David Magana UA PROTEIN Negative Normal NEGATIVE/ TRACE [facility] Comment on above: Performed By: #### M G, BMP, PHOS #### [facility] [address] [place] [address] Dr. David Magana Urobilinogen Qn (U) 0.2 {Dionna'U}/dL Normal 0.2 - 1. 0 [facility] Comment on above: Performed By: #### M G, BMP, PHOS #### [facility] [address] [place] [address] Dr. David Magana WBC NONE SEEN Normal NONE SEEN [facility] Comment on above: Performed By: #### M G, BMP, PHOS #### [facility] [address] [place] [address] Dr. David Magana XR CHEST 1 Von [...] Yefri DWYER Date: 2022-07-18 00:09 Normal [facility] CARDIAC BARRIE ADMITon 022 CK [Catalytic activity/Vol] 61 U/L Normal 39-308 [facility] Comment on above: Performed By: #### C BC #### [facility] [address] [address] [address] David Magana CK.MB [Mass/Vol] 1.84 ng/mL Normal <=3.60 [facility] Comment on above: Performed By: #### C BC #### [facility] [address] [place] [address] Dr. David Magana HSTROP 9.4 pg/mL Normal 4.0-76.1 [facility] Comment on above: Result Comment: CUT- OFF POINTS HAVE BEEN ESTABLISHED BASED ON THE FOURTH UNIVERSAL DEFINITIONS OF MYOCARDIAL INFARCTION. THE UPPER REFERENCE LIMIT (URL) OF TROPONIN, DEFINED THE 99TH PERCENTILE OF cTnI DISTRIBUTION IN A REFERENCE POPULATION, HAS BEEN CONFIRMED THE DECISION THRESHOLD FOR CA DIAGNOSIS. Performed By: #### C BC #### [facility] [address] [address] [address] David Magana DUSTIN 533 ng/mL Critically high 16-96 [place] Comment on above: Performed By: #### C BC #### [facility] [address] [address] [address] David Magana CBC AUTO DIFFon 07-17-2022 BASO # 0.0 103/ul Normal 0.0-0.1 [facility] Comment on above: Performed By: #### M G, BMP, PHOS #### [facility] [address] [address] [address] David Magana Basophils/100 WBC (Bld) 0.2 % Normal 0.2-2.0 [facility] Comment on above: Performed By: #### M G, BMP, PHOS #### [facility] [address] [address] [address] David Magana EO # 0.0 103/ul Normal 0.0-0.7 [facility] Comment on above: Performed By: #### M ERICK Faith, PHOS #### [facility] [address] [place] [address] Dr. David aMgana Eosinophils/100 WBC (Bld) 0.1 % Critically low 0.9-7.0 [facility] Comment on above: Performed By: #### ERICK Jacques, PHOS #### [facility] [address] [place] [address] Dr. David Magana Erythrocyte distribution width (RBC) [Ratio] 13.2 % Normal 11.0-15.0 [facility] Comment on above: Performed By: #### ERICK Jacques, PHOS #### [facility] [address] [place] [address] Dr. David Magana Hematocrit (Bld) [Volume fraction] 43.1 % Normal 42.0-54.0 [facility] Comment on above: Performed By: #### ERICK Jacques, PHOS #### [facility] [address] [place] [address] Dr. David Magana Hemoglobin (Bld) [Mass/Vol] 14.5 g/dL Normal 14.0-18.0 [facility] Comment on above: Performed By: #### ERICK Jacques, PHOS #### [facility] [address] [place] [address] Dr. David Magana IG # 0.14 10e3/ul Critically high 0.00-0.03 [facility] Comment on above: Performed By: #### ERICK Jacques, PHOS #### [facility] [address] [place] [address] Dr. David Magana IG % 1.2 % Critically high 0.0-0.5 [facility] Comment on above: Performed By: #### M ERICK Faith, PHOS #### [facility] [address] [place] [address] Dr. David Magana LYMPH # 0.4 103/ul Critically low 1.2-3.8 [facility] Comment on above: Performed By: #### M ERICK Faith, PHOS #### [facility] [address] [place] [address] Dr. David Magana Lymphocytes/100 WBC (Bld) 3.4 % Critically low 20.5-60.0 [facility] Comment on above: Performed By: #### M G, BMP, PHOS #### [facility] [address] [place] [address] Dr. David Magana MANUAL DIFF REQ NO Normal [place] Comment on above: Performed By: #### M G, BMP, PHOS #### [facility] [address] [place] [address] Dr. David Magana MCH (RBC) [Entitic mass] 33.3 pg Normal 25.9-34.0 [facility] Comment on above: Performed By: #### M G, BMP, PHOS #### [facility] [address] [place] [address] Dr. David Magana MCHC (RBC) [Mass/Vol] 33.6 g/dL Normal 29.9-35.2 [facility] Comment on above: Performed By: #### M G, BMP, PHOS #### [facility] [address] [place] [address] Dr. David Magana MCV (RBC) [Entitic vol] 98.9 fL Critically high 80.0-94.0 [facility] Comment on above: Performed By: #### M G, BMP, PHOS #### [facility] [address] [place] [address] Dr. David Magana MONO # 1.1 103/ul Critically high 0.3-0.8 [facility] Comment on above: Performed By: #### M G, BMP, PHOS #### [facility] [address] [place] [address] Dr. David Magana Monocytes/100 WBC (Bld) 8.9 % Normal 1.7-12.0 [facility] Comment on above: Performed By: #### M G, BMP, PHOS #### [facility] [address] [place] [address] Dr. David Magana NEUT # 10.3 103/ul Critically high 1.4-6.5 [facility] Comment on above: Performed By: #### M ERICK Faith, PHOS #### [facility] [address] [place] [address] Dr. David Magana Neutrophils/100 WBC (Bld) 86.2 % Critically high 43.0-75.0 [facility] Comment on above: Performed By: #### ERICK Jacques, PHOS #### [facility] [address] [place] [address] Dr. David Magana Platelet mean volume (Bld) [Entitic vol] 11.1 fL Normal 9.5-13.5 [facility] Comment on above: Performed By: #### ERICK Jacques, PHOS #### [facility] [address] [place] [address] Dr. David Magana PLT 229 103/ul Normal 150-450 [facility] Comment on above: Performed By: #### ERICK Jacques, PHOS #### [facility] [address] [place] [address] Dr. David Magana RBC 4.36 106/ul Critically low 4.70-6.10 [place] Comment on above: Performed By: #### ERICK Jacques, PHOS #### [facility] [address] [place] [address] Dr. David Magana WBC 11.9 103/ul Critically high 4.0-11.0 [facility] Comment on above: Performed By: #### ERICK Jacques, PHOS #### [facility] [address] [place] [address] Dr. David Magana PROF CHEM 8 (BAS METB)on Anion gap [Moles/Vol] 26.5 mmol/L Normal [facility] Comment on above: Performed By: #### C BC #### [facility] [address] [place] [address] Dr. David Magana Calcium [Mass/Vol] 8.2 mg/dL Critically low 8.5-10.1 [facility] Comment on above: Performed By: #### C BC #### [facility] [address] [address] [address] David Magana Chloride [Moles/Vol] 89 mmol/L Critically low 98-107 [facility] Comment on above: Performed By: #### C BC #### [facility] [address] [address] [address] David Magana CO2 [Moles/Vol] 14.5 mmol/L Critically low 21.0-32.0 [facility] Comment on above: Performed By: #### C BC #### [facility] [address] [address] [address] David Magana Creatinine [Mass/Vol] 2.78 mg/dL Critically high 0.70-1.30 [facility] Comment on above: Performed By: #### C BC #### [facility] [address] [address] [address] David Magana EGFR-AF BOTSWANAN 27 mL/min/1.73m2 Critically low >=60 [facility] Comment on above: Performed By: #### C BC #### [facility] [address] [address] [address] David Magana EGFR-NON AF BOTSWANAN 22 mL/min/1.73m2 Critically low >=60 [facility] Comment on above: Performed By: #### C BC #### [facility] [address] [address] [address] David Magana Glucose [Mass/Vol] 442 mg/dL Critically high 74-106 [facility] Comment on above: Performed By: #### C BC #### [facility] [address] [address] [address] David Magana Potassium [Moles/Vol] 6.0 mmol/L Critically high 3.5-5.1 [facility] Comment on above: Performed By: #### C BC #### [facility] [address] [address] [address] David Magana Sodium [Moles/Vol] 124 mmol/L Critically low 136-145 [facility] Comment on above: Performed By: #### C BC #### [facility] [address] [place], [place] [address] Dr. David Magana Urea nitrogen [Mass/Vol] 73.0 mg/dL Critically high 7.0-18.0 [facility] Comment on above: Performed By: #### C BC #### [facility] [address] [place], [place] [address] Dr. David Magana Urea nitrogen/Creatinine [Mass ratio] 26.3 mg/mg Normal [facility] Comment on above: Performed By: #### C BC #### [facility] [address] [place], [place] [address] Dr. David Mag[facility]16 SARS-CoV-2 (COVID-19) RNA SULTANA+probe Ql (Unsp spec) Detected Critically abnormal NOT DETECTED [facility] Comment on above: Result Comment: This test is not yet approved or cleared by the [place] FDA. When there are no FDA-approved or cleared tests available, and other criteria are met, FDA can make tests available under an emergency access mechanism called an Emergency Use Authorization (EUA). The EUA for this test is supported by the Machine [employer]air[employer] of Health and Human Service's (HHS's) declaration [...] By: #### M G, BMP, PHOS #### [facility] [id number] David Magana ECHOCARDIO M/2D COMPLETEon 0 07-01-2022 ECHOCARDIO M/2D COMPLETE Patient: NADIR BETH Exam Date: 07/01/2022 : 1940 Gender:M Ordering : DR CLARIBEL CISNEROS M.D. Admission #: [id number] Family : DR VAN YOUSSEF . Order #: [id number] CLICK HERE TO VIEW EXAM ECHOCARDIOGRAM REPORT [...] M.D. on 07/01/2022 at 16:27 Normal [facility] Covid-19 PCR ([facility])on SARS-CoV-2 (COVID-19) RNA SULTANA+probe Ql (Unsp spec) Not detected Normal NOT DETECTED [facility] Comment on above: Result Comment: When diagnostic [...] for this test is supported by the Aubrey of Health and Human Service's declaration that [...] used). Performed By: #### C VDTB #### [facility] [address] [place] [address] Dr. David Magana CREATININE URINEon 2 URINE CREAT 14.70 mg/dL Critically low 20.00-300.00 [facility] Comment on above: Performed By: #### M ERICK Faith, PHOS #### [facility] [address] [place] [address] Dr. David Magana GLYCOHEMOGLOBIN A1Con 2021 ADA RECOMMENDATION SEE BELOW Normal [facility] Comment on above: Result Comment: ADA RECOMMENDED LIMIT 4.0 - 6.0 ADA THERAPEUTIC TARGET < 7.0 ACTION SUGGESTED > 7.0 Performed By: #### A 1C #### [facility] [address] [place] [address] Dr. David Magana Glucose [Mass/Vol] 209 mg/dL Normal [facility] Comment on above: Performed By: #### A 1C #### [facility] [address] [place] [address] Dr. David Magana HbA1c (Bld) [Mass fraction] 8.9 % Critically high 4.5-6.2 [facility] Comment on above: Performed By: #### A 1C #### [facility] [address] [place] [address] Dr. David Magana MAGNESIUMon 06-08-2022 Magnesium [Mass/Vol] 2.3 mg/dL Normal 1.8-2.4 [facility] Comment on above: Performed By: #### M ERICK Faith, PHOS #### [facility] [address] [place] [address] Dr. David Magana PHOSPHORUSon 06-08-2022 Phosphate [Mass/Vol] 3.5 mg/dL Normal 2.6-4.7 [facility] Comment on above: Performed By: #### ERICK Jacques, PHOS #### [facility] [address] [place] [address] Dr. David Magana PROF CHEM 8 (BAS METB)on Anion gap [Moles/Vol] 10.6 mmol/L Normal [facility] Comment on above: Performed By: #### M G, BMP, PHOS #### [facility] [address] [address] [address] David Magana Calcium [Mass/Vol] 9.2 mg/dL Normal 8.5-10.1 [facility] Comment on above: Performed By: #### M G, BMP, PHOS #### [facility] [address] [address] [address] David Magana Chloride [Moles/Vol] 102 mmol/L Normal 98-107 [facility] Comment on above: Performed By: #### M Marcell, BMP, PHOS #### [facility] [address] [address] [address] David Magana CO2 [Moles/Vol] 30.1 mmol/L Normal 21.0-32.0 [facility] Comment on above: Performed By: #### M Marcell, BMP, PHOS #### [facility] [address] [address] [address] David Magana Creatinine [Mass/Vol] 1.70 mg/dL Critically high 0.70-1.30 [facility] Comment on above: Performed By: #### M G, BMP, PHOS #### [facility] [address] [address] [address] David Magana EGFR-AF BOTSWANAN 47 mL/min/1.73m2 Critically low >=60 [facility] Comment on above: Performed By: #### M G, BMP, PHOS #### [facility] [address] [address] [address] David Magana EGFR-NON AF BOTSWANAN 39 mL/min/1.73m2 Critically low >=60 [facility] Comment on above: Performed By: #### M G, BMP, PHOS #### [facility] [address] [address] [address] David Magana Glucose [Mass/Vol] 197 mg/dL Critically high 74-106 [facility] Comment on above: Performed By: #### M ERICK Faith, PHOS #### [facility] [address] [place] [address] Dr. David Magana Potassium [Moles/Vol] 4.7 mmol/L Normal 3.5-5.1 [facility] Comment on above: Performed By: #### M Marcell BMP, PHOS #### [facility] [address] [place] [address] Dr. David Magana Sodium [Moles/Vol] 138 mmol/L Normal 136-145 [facility] Comment on above: Performed By: #### M ERICK Faith, PHOS #### [facility] [address] [place] [address] Dr. David Magana Urea nitrogen [Mass/Vol] 25.0 mg/dL Critically high 7.0-18.0 [facility] Comment on above: Performed By: #### ERICK Jacques, PHOS #### [facility] [address] [place] [address] Dr. David Magana Urea nitrogen/Creatinine [Mass ratio] 14.7 mg/mg Normal [facility] Comment on above: Performed By: #### M ERICK Faith, PHOS #### [facility] [address] [place] [address] Dr. David Magana PROTEIN RAND URINEon 022 UR PROT <5.0 Normal <=11.9 [facility] Comment on above: Performed By: #### C REAU, PROTU #### [facility] [address] [place] [address] Dr. David Magana BILIRUBIN CONJUGATED (DIRECT )on 04-28-2022 BILI, CONJUGATED 0.1 mg/dL Normal 0.0-0.2 [facility] Comment on above: Performed By: #### P OCGLUC #### [facility] [address] [place] [address] Dr. David Magana CBC AUTO DIFFon 04-28-2022 BASO # 0.1 103/ul Normal 0.0-0.1 [facility] Comment on above: Performed By: #### C VDTBH #### [facility] [address] [place] [address] Dr. David Magana Basophils/100 WBC (Bld) 0.7 % Normal 0.2-2.0 [facility] Comment on above: Performed By: #### C VDTBH #### [facility] [address] [place] [address] Dr. David Magana EO # 0.5 103/ul Normal 0.0-0.7 [facility] Comment on above: Performed By: #### C VDTBH #### [facility] [address] [place] [address] Dr. David Magana Eosinophils/100 WBC (Bld) 6.7 % Normal 0.9-7.0 [facility] Comment on above: Performed By: #### C VDTBH #### [facility] [address] [place] [address] Dr. David Magana Erythrocyte distribution width (RBC) [Ratio] 13.6 % Normal 11.0-15.0 [facility] Comment on above: Performed By: #### C VDTBH #### [facility] [address] [place] [address] Dr. David Magana Hematocrit (Bld) [Volume fraction] 45.9 % Normal 42.0-54.0 [facility] Comment on above: Performed By: #### C VDTBH #### [facility] [address] [place] [address] Dr. David Magana Hemoglobin (Bld) [Mass/Vol] 14.9 g/dL Normal 14.0-18.0 [facility] Comment on above: Performed By: #### C VDTBH #### [facility] [address] [place] [address] Dr. David Magana IG # 0.03 10e3/ul Normal 0.00-0.03 [facility] Comment on above: Performed By: #### C VDTBH #### [facility] [address] [place] [address] Dr. David Magana IG % 0.4 % Normal 0.0-0.5 [facility] Comment on above: Performed By: #### C VDTBH #### [facility] [address] [address] [address] David Magana LYMPH # 1.0 103/ul Critically low 1.2-3.8 [facility] Comment on above: Performed By: #### C VDTBH #### [facility] [address] [address] [address] David Magana Lymphocytes/100 WBC (Bld) 13.4 % Critically low 20.5-60.0 [facility] Comment on above: Performed By: #### C VDTBH #### [facility] [address] [address] [address] David Magana MANUAL DIFF REQ NO Normal [place] Comment on above: Performed By: #### C VDTBH #### [facility] [address] [address] [address] David Magana MCH (RBC) [Entitic mass] 33.8 pg Normal 25.9-34.0 [facility] Comment on above: Performed By: #### C VDTBH #### [facility] [address] [address] [address] David Magana MCHC (RBC) [Mass/Vol] 32.5 g/dL Normal 29.9-35.2 [facility] Comment on above: Performed By: #### C VDTBH #### [facility] [address] [address] [address] David Magana MCV (RBC) [Entitic vol] 104.1 fL Critically high 80.0-94.0 [facility] Comment on above: Performed By: #### C VDTBH #### [facility] [address] [address] [address] David Magana MONO # 0.8 103/ul Normal 0.3-0.8 [facility] Comment on above: Performed By: #### C VDTBH #### [facility] [address] [address] [address] David Magana Monocytes/100 WBC (Bld) 10.2 % Normal 1.7-12.0 [facility] Comment on above: Performed By: #### C VDTBH #### [facility] [address] [address] [address] David Magana NEUT # 5.1 103/ul Normal 1.4-6.5 [facility] Comment on above: Performed By: #### C VDTBH #### [facility] [address] [address] [address] David Magana Neutrophils/100 WBC (Bld) 68.6 % Normal 43.0-75.0 [facility] Comment on above: Performed By: #### C VDTBH #### [facility] [address] [place] [address] Dr. David Magana Platelet mean volume (Bld) [Entitic vol] 11.3 fL Normal 9.5-13.5 [facility] Comment on above: Performed By: #### C VDTBH #### [facility] [address] [place] [address] Dr. David Magana PLT 185 103/ul Normal 150-450 [facility] Comment on above: Performed By: #### C VDTBH #### [facility] [address] [place] [address] Dr. David Magana RBC 4.41 106/ul Critically low 4.70-6.10 [place] Comment on above: Performed By: #### C VDTBH #### [facility] [address] [place] [address] Dr. David Magana WBC 7.5 103/ul Normal 4.0-11.0 [facility] Comment on above: Performed By: #### C VDTBH #### [facility] [address] [address] [address] David Magana FREE T3on 04-28-2022 FREE T3 2.17 pg/mlL Critically low 2.18-3.98 [place] Comment on above: Performed By: #### P OCGLUC #### [facility] [address] [place] [address] Dr. David Magana LIPID PROFILEon 04-28-2022 CHOL-HDL RATIO NORM SEE BELOW Normal [facility] Comment on above: Result Comment: 3.3 - 4.4 LOW RISK 4.4 - 7.1 AVERAGE RISK 7.1 - 11.0 MODERATE RISK >11.0 HIGH RISK Performed By: #### P OCGLUC #### [facility] [address] [address] [address] David Magana Cholesterol [Mass/Vol] 234 mg/dL Critically high <=200 [facility] Comment on above: Performed By: #### P OCGLUC #### [facility] [address] [address] [address] David Magana Cholesterol in HDL [Mass/Vol] 58 mg/dL Normal 40-60 [facility] Comment on above: Performed By: #### P OCGLUC #### [facility] [address] [address] [address] David Magana Cholesterol in LDL [Mass/Vol] 129.0 mg/dL Normal [facility] Comment on above: Performed By: #### P OCGLUC #### [facility] [address] [address] [address] David Magana Cholesterol.total/Cho lesterol in HDL [Mass ratio] 4.0 {ratio} Normal [facility] Comment on above: Performed By: #### P OCGLUC #### [facility] [address] [address] [address] David Magana HDL NORMAL > or = 60 mg/dl - LO W CARDIOVASCULAR RISK <40 mg/dl - HIGH CARDIOVASCULAR RISK Normal [facility] Comment on above: Performed By: #### P OCGLUC #### [facility] [address] [address] [address] David Magana LDL CALC NORMAL SEE BELOW Normal [facility] Comment on above: Result Comment: <100 mg/dl OPTIMAL 100 - 129 mg/dl NEAR OR ABOVE OPTIMAL 130 - 159 mg/dl BORDERLINE HIGH 160 - 189 mg/dl HIGH >190 mg/dl VERY HIGH Performed By: #### P OCGLUC #### [facility] [address] [address] [address] David Magana Triglyceride [Mass/Vol] 235 mg/dL Critically high <=150 [facility] Comment on above: Performed By: #### P OCGLUC #### [facility] [address] [address] [address] David Magana VLDL CALC 47.0 mg/dL Normal [facility] Comment on above: Performed By: #### P OCGLUC #### [facility] [address] [place] [address] Dr. David Magana PROF 14(COMP METB)on 022 Albumin [Mass/Vol] 3.2 g/dL Critically low 3.4-5.0 [facility] Comment on above: Performed By: #### P OCGLUC #### [facility] [address] [place] [address] Dr. David Magana Albumin/Globulin [Mass ratio] 0.9 {ratio} Normal [facility] Comment on above: Performed By: #### P OCGLUC #### [facility] [address] [place] [address] Dr. David Magana ALP [Catalytic activity/Vol] 77 U/L Normal 46-116 [facility] Comment on above: Performed By: #### P OCGLUC #### [facility] [address] [place] [address] Dr. David Magana ALT [Catalytic activity/Vol] 24 U/L Normal 16-63 [facility] Comment on above: Performed By: #### P OCGLUC #### [facility] [address] [place] [address] Dr. David Magana Anion gap [Moles/Vol] 13.1 mmol/L Normal [facility] Comment on above: Performed By: #### P OCGLUC #### [facility] [address] [address] [address] David Magana AST [Catalytic activity/Vol] 13 U/L Critically low 15-37 [facility] Comment on above: Performed By: #### P OCGLUC #### [facility] [address] [place] [address] Dr. David Magana Bilirubin [Mass/Vol] 0.3 mg/dL Normal 0.2-1.0 [facility] Comment on above: Performed By: #### P OCGLUC #### [facility] [address] [address] [address] David Magana Calcium [Mass/Vol] 8.8 mg/dL Normal 8.5-10.1 [facility] Comment on above: Performed By: #### P OCGLUC #### [facility] [address] [address] [address] David Magana Chloride [Moles/Vol] 106 mmol/L Normal 98-107 [facility] Comment on above: Performed By: #### P OCGLUC #### [facility] [address] [address] [address] David Magana CO2 [Moles/Vol] 27.5 mmol/L Normal 21.0-32.0 [facility] Comment on above: Performed By: #### P OCGLUC #### [facility] [address] [address] [address] David Magana Creatinine [Mass/Vol] 1.62 mg/dL Critically high 0.70-1.30 [facility] Comment on above: Performed By: #### P OCGLUC #### [facility] [address] [address] [address] David Magana EGFR-AF BOTSWANAN 50 mL/min/1.73m2 Critically low >=60 [facility] Comment on above: Performed By: #### P OCGLUC #### [facility] [address] [address] [address] David Magana EGFR-NON AF BOTSWANAN 41 mL/min/1.73m2 Critically low >=60 [facility] Comment on above: Performed By: #### P OCGLUC #### [facility] [address] [address] [address] David Magana Globulin (S) [Mass/Vol] 3.4 g/dL Normal [facility] Comment on above: Performed By: #### P OCGLUC #### [facility] [address] [address] [address] David Magana Glucose [Mass/Vol] 206 mg/dL Critically high 74-106 [facility] Comment on above: Performed By: #### P OCGLUC #### [facility] [address] [address] [address] David Magana Potassium [Moles/Vol] 4.6 mmol/L Normal 3.5-5.1 [facility] Comment on above: Performed By: #### P OCGLUC #### [facility] [address] [address] [address] David Magana Protein [Mass/Vol] 6.6 g/dL Normal 6.4-8.2 [facility] Comment on above: Performed By: #### P OCGLUC #### [facility] [address] [address] [address] David Magana Sodium [Moles/Vol] 142 mmol/L Normal 136-145 [facility] Comment on above: Performed By: #### P OCGLUC #### [facility] [address] [address] [address] David Magana Urea nitrogen [Mass/Vol] 26.0 mg/dL Critically high 7.0-18.0 [facility] Comment on above: Performed By: #### P OCGLUC #### [facility] [address] [address] [address] David Magana Urea nitrogen/Creatinine [Mass ratio] 16.0 mg/mg Normal [facility] Comment on above: Performed By: #### P OCGLUC #### [facility] [address] [address] [address] David Magana T4on 04-28-2022 T4 [Mass/Vol] 7.70 ug/dL Normal 4.50-12.10 [facility] Comment on above: Performed By: #### P OCGLUC #### [facility] [address] [place] [address] Dr. David Magana TSHon 04-28-2022 TSH 2.187 uIU/mL Normal 0.358-3.740 [facility] Comment on above: Performed By: #### P OCGLUC #### [facility] [address] [place] [address] Dr. David Magana TSH RANGE SEE BELOW Normal [facility] Comment on above: Result Comment: <0.3 4 UIU/ml HYPERTHYROID 0.34-5.60 UIU/ml EUTHYROID >5.60 UIU/ml HYPOTHYROID Performed By: #### P OCGLUC #### [facility] [address] [address] [address] David Magana Vital Signs Date Time Vital Sign Value Performing Clinician Facility 09-14-2024 08:19-0400 Body height 182.9 cm Blaise Chicas DPM Work Phone: [facility] 09-14-2024 08:19-0400 Body mass index (BMI) [Ratio] 39.2 kg/m2 Blaise Chicas DPM Work Phone: [facility] 09-14-2024 08:19-0400 Body weight 131.09 kg Blaise Chicas DPM Work Phone: [facility] 09-14-2024 08:19-0400 Diastolic blood pressure 79 mm[Hg] Blaise Chicas DPM Work Phone: [facility] 09-14-2024 08:19-0400 Heart rate 81 /min Blaise Chicas DPM Work Phone: [facility] 09-14-2024 08:19-0400 Systolic blood pressure 128 mm[Hg] Blaise Chicas DPM Work Phone: [facility] 08-08-2024 10:25-0400 Blood Pressure Location MARQUIS NKANSAH-AMANKRA [facility] 08-08-2024 10:25-0400 Diastolic blood pressure 82 mm[Hg] MARQUIS NKANSAH-AMANKRA [facility] 08-08-2024 10:25-0400 Systolic blood pressure 140 mm[Hg] MARQUIS NKANSAH-AMANKRA [facility] 10-14-2023 14:33-0500 Diastolic blood pressure 70 mm[Hg] Nereyda Patricia [facility] 10-14-2023 14:33-0500 Mean blood pressure 93 mm[Hg] Nereyda Patricia [facility] 10-14-2023 14:33-0500 Systolic blood pressure 138 mm[Hg] Nereyda Patricia [facility] 10-14-2023 14:18-0500 Blood Pressure Location Nereyda Patricia [facility] 10-14-2023 14:18-0500 Body temperature 97.88 [degF] Nereyda Patricia [facility] 10-14-2023 14:18-0500 Diastolic blood pressure 73 mm[Hg] Nereyda Patricia [facility] 10-14-2023 14:18-0500 Heart rate 91 /min Nereyda Patricia [facility] 10-14-2023 14:18-0500 Systolic blood pressure 143 mm[Hg] Nereyda Patricia [facility] 10-01-2023 12:13-0500 Diastolic blood pressure 66 mm[Hg] Nereyda Patricia [facility] 10-01-2023 12:13-0500 Mean blood pressure 104 mm[Hg] Nereyda Patricia [facility] 10-01-2023 12:13-0500 Systolic blood pressure 179 mm[Hg] Nereyda Patricia [facility] 10-01-2023 12:10-0500 Blood Pressure Location Nereyda Patricia [facility] 10-01-2023 12:10-0500 Body temperature 98.42 [degF] Nereyda Patricia [facility] 10-01-2023 12:10-0500 Diastolic blood pressure 77 mm[Hg] Nereyda Patricia [facility] 10-01-2023 12:10-0500 Heart rate 81 /min [facility] [facility] 10-01-2023 12:10-0500 Respiratory rate 14 /min Nereyda Patricia [facility] 10-01-2023 12:10-0500 Systolic blood pressure 168 mm[Hg] Nereyda Patricia [facility] 06-10-2023 10:43-0400 Diastolic blood pressure 64 mm[Hg] Nereyda Patricia [facility] 06-10-2023 10:43-0400 Heart rate 76 /min Nereyda Patricia [facility] 06-10-2023 10:43-0400 Respiratory rate 16 /min Nereyda Patricia [facility] 06-10-2023 10:43-0400 SaO2% (BldA) [Mass fraction] 95 % Nereyda Patricia [facility] 06-10-2023 10:43-0400 Systolic blood pressure 121 mm[Hg] Nereyda Patricia [facility] 04-13-2023 14:19-0400 Diastolic blood pressure 70 mm[Hg] Nereyda Patricia [facility] 04-13-2023 14:19-0400 Mean blood pressure 95 mm[Hg] Nereyda Patricia [facility] 04-13-2023 14:19-0400 Systolic blood pressure 146 mm[Hg] Nereyda Patricia [facility] 04-13-2023 14:15-0400 Blood Pressure Location Nereyda Patricia [facility] 04-13-2023 14:15-0400 Body temperature 97.7 [degF] Nereyda Patricia [facility] 04-13-2023 14:15-0400 Diastolic blood pressure 87 mm[Hg] Nereyda Patricia [facility] 04-13-2023 14:15-0400 Heart rate 70 /min Nereyda Patricia [facility] 04-13-2023 14:15-0400 Systolic blood pressure 150 mm[Hg] Nereyda Patricia [facility] 06-09-2022 10:02-0400 Body temperature 96.98 [degF] Nereyda Patricia [facility] 06-09-2022 10:02-0400 Diastolic blood pressure 75 mm[Hg] Nereyda Patricia [facility] 06-09-2022 10:02-0400 Heart rate 72 /min Nereyda Patricia [facility] 06-09-2022 10:02-0400 SaO2% (BldA) [Mass fraction] 97 % Nereyda Patricia [facility] 06-09-2022 10:02-0400 Systolic blood pressure 139 mm[Hg] Nereyda Gomez [facility] 05-11-2022 11:30-0400 Diastolic blood pressure 102 mm[Hg] Bender SALAM [facility] 05-11-2022 11:30-0400 Heart rate 86 /min Bender SALAM [facility] 05-11-2022 11:30-0400 Respiratory rate 15 /min Bender SALAM [facility] 05-11-2022 11:30-0400 SaO2% (BldA) [Mass fraction] 95 % Bender SALAM [facility] 05-11-2022 11:30-0400 Systolic blood pressure 172 mm[Hg] Bender SALAM [facility] 05-11-2022 11:15-0400 Diastolic blood pressure 88 mm[Hg] Bender SALAM [facility] 05-11-2022 11:15-0400 Heart rate 86 /min Bender SALAM [facility] 05-11-2022 11:15-0400 Respiratory rate 18 /min Bender SALAM [facility] 05-11-2022 11:15-0400 SaO2% (BldA) [Mass fraction] 97 % Bender SALAM [facility] 05-11-2022 11:15-0400 Systolic blood pressure 170 mm[Hg] Bender SALAM [facility] 05-11-2022 11:10-0400 Diastolic blood pressure 108 mm[Hg] Bender SALAM [facility] 05-11-2022 11:10-0400 Heart rate 85 /min Bender SALAM [facility] 05-11-2022 11:10-0400 Respiratory rate 14 /min Bender SALAM [facility] 05-11-2022 11:10-0400 SaO2% (BldA) [Mass fraction] 97 % Bender SALAM [facility] 05-11-2022 11:10-0400 Systolic blood pressure 157 mm[Hg] Bender SALAM [facility] 05-11-2022 11:02-0400 Body temperature 97.34 [degF] Bender SALAM [facility] 05-11-2022 10:27-0400 Blood Pressure Location Bender SALAM [facility] 05-11-2022 10:23-0400 Blood Pressure Location Bender SALAM [facility] 05-11-2022 10:23-0400 Body temperature 98.24 [degF] Bender SALAM [facility] 03-31-2022 09:53-0400 Blood Pressure Location Nereyda Patricia [facility] 03-31-2022 09:53-0400 Body temperature 97.7 [degF] Nereyda Gomez [facility] 03-31-2022 09:53-0400 Diastolic blood pressure 72 mm[Hg] Nereyda Gomez [facility] 03-31-2022 09:53-0400 Heart rate 73 /min Nereyda Gomez [facility] 03-31-2022 09:53-0400 SaO2% (BldA) [Mass fraction] 96 % Nereyda Gomez [facility] 03-31-2022 09:53-0400 Systolic blood pressure 129 mm[Hg] Nereyda Gomez [facility] Encounters Encounter Date Encounter Type Care Provider Facility Start: 12-04-2024 ambulatory MD MARQUIS LOUISE Facility: [facility] Start: 10-25-2024 End: 10-25-2024 ambulatory MD MARQUIS LOUISE Facility:[facility] Start: 10-23-2024 End: 10-23-2024 ambulatory MD MARQUIS LOUISE Facility:[facility] Start: 10-23-2024 End: 10-23-2024 Patient encounter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 y.o. year old male patient being seen for Follow-up Patient Active Problem List Diagnosis Aortic valve disorder Atherosclerosis of renal artery (CMS/HCC) Chronic atrial fibrillation ([facility]/HCC) Coronary arteriosclerosis Bradycardia Aortic valve stenosis Type [...] extremity edema. He was admitted to the [facility] in August 2022 due to hyponatremia, hyperkalemia and acute kidney injury, leukocytosis secondary to COVID-19 causing dehydration. I saw him on 05/24/2023 and the office and he had significant evidence of volume overload by exam and echocardiogram. I intensified his diuretic regimen. He ended up getting admitted to the [facility] with acute heart failure exacerbation and underwent [...] Allergies Allergen Reactions Iodinated Contrast Media Nitroglycerin Gqwlmve-Lxq-Eyf Reductase Inhibitors Medications Current Outpatient Medications: acyclovir [...] tablet every day by (more content not included)...[facility]07-27-2023 Hospital Discharge instructions Patient Education 06/10/2023 [...] hard liquor (44 mL). General instructions Take lgir-siv-zpyzwbr and prescription medicines only as told by [...] provider. Document Revised: 02/19/2021 Document Reviewed: 02/19/2021 [employer] Patient Education 2022 [employer]. Follow Up Care 04/13/2023 14:39:27 With:Nereyda Gomez CNP Address: When:[address] [facility] 05-30-2023 Hospital Discharge instructions [...] including vitamins, herbs, eye drops, creams, and rkyh-xel-vcraglb medicines. Any problems you or family members [...] provider tells you to take them. Taking uijw-beu-snxvstm medicines, vitamins, herbs, and supplements. General instructions [...] provider. Document Revised: 10/26/2022 Document Reviewed: 06/24/2022 [employer] Patient Education 2022 [employer]. Follow Up Care 04/09/2023 11:27:16 With:Nereyda Gomez CNP Address: When:[address] [facility] 09-03-2022 NoteEXAM: [place] CHANI [...] Electronically authenticated by: PREETI ROBERTS Date: 2022-07-18 09:05[facility]07-26-2022 Hospital Discharge instructions Patient Education 06/09/2022 [...] per serving. Talk with a diet and retail selling specialist (dietitian) if you have questions about [...] Bulgur wheat. Millet. Quinoa. Bran muffins. Popcorn. Byers wafer crackers. Meats and other proteins Mallory, kidney, and mendez beans. Soybeans. Split peas. [...] Cream cheese. Sour cream. Fats and oils [place]. Beverages Soft drinks. Other foods Cakes and [...] 11/01/2006 Document Revised: 09/05/2018 Document Reviewed: 09/05/2018 Elsevier Patient Education 2020 [employer]. 06/09/2022 10:13:34 Hemorrhoids Hemorrhoids Hemorrhoids are swollen [...] 3 times a day. General instructions Take jfhv-sin-awkkuwx and prescription medicines only as told by [...] 10/29/2001 Document Revised: 03/29/2020 Document Reviewed: 03/23/2019 [employer] Patient Education 2020 [employer]. 06/09/2022 10:13:31 Diverticulosis Diverticulosis Diverticulosis is a [...] overweight. Not getting enough exercise. Smoking. Taking aoyx-nxg-olmowyy pain medicines, like aspirin and ibuprofen. Having [...] health care provider or your diet and retail selling specialist (dietitian). ?Take a fiber supplement or probiotic, if your health care provider approves. Take amsw-sjx-vxfggim and prescription medicines only as told by [...] 07/29/2005 Document Revised: 10/14/2018 Document Reviewed: 09/20/2017 [employer] Patient Education 2020 [employer] 06/09/2022 10:13:30 Colon Polyps Colon Polyps [...] 07/28/2005 Document Revised: 02/16/2019 Document Reviewed: 02/16/2019 [employer] Patient Education 2020 [employer]. Follow Up Care 05/13/2022 14:18:17 With:Nereyda Gomez CNP Address: When:[address] only if needed [facility] 06-27-2022 Evaluation + Plan noteExtracted from: Title:Anesthesia post [...] heart and lungs, allergic reactions, and .. [facility]06-27-2022 Hospital Discharge instructions Patient Education 05/11/2022 11:13:39 Colonoscopy, Care After Surgery Salam (CUSTOM) Colonoscopy Care After Surgery Please read the instructions outlined below and refer to this sheet in the next few weeks. These discharge instructions provide you with general information on caring for yourself [facility] Your doctor may also give you specific [...] 07/28/2005 Document Revised: 02/16/2019 Document Reviewed: 02/16/2019 [employer] Patient Education 2020 [employer]. 05/11/2022 11:13:39 Diverticulosis MAGR (CUSTOM) Diverticulosis Many [...] unsweetened, w/added ascorbic acid 1 cup 0.5 [place] 1 cup 0.7 Vegetables Cooked Green beans 1 cup 4.0 Carrots 1/2 cup sliced 2.3 Peas 1 cup 8.8 Potato (baked, with skin) 1 medium potato 3.8 Raw [place] (with peel) 1 cucumber 1.5 Lettuce 1 [...] of Agriculture (USDA) National Nutrient Database at: http://www.Ubiterra.usda.gov/fnic/foodcomp/search/ Created using data from the USDA National Nutrient Database for Standard Reference. Available at http://www.Ubiterra.usda.gov/fnic/foodcomp/search/. Information adapted from: [facility] Patient Information 2010 [employer]. SchedulizeSunLink 2012 http://www.Imindi/contents/tctnvcgaupwj-vmkpxoo-ylfeua-the-basics Follow Up Care 03/31/2022 10:27:32 With:Napoleon NOVA Address: [address] [place] [address] [address] [place] [address] Business (1) When: Unknown Comments:office will call for follow up [facility]05-17-2022 Hospital Discharge instructions Patient Education 03/31/2022 [...] including vitamins, herbs, eye drops, creams, and utme-tpp-nkavrcq medicines. Any problems you or family members [...] 10/29/2001 Document Revised: 08/24/2018 Document Reviewed: 01/12/2017 [employer] Patient Education 2020 [employer]. Follow Up Care 03/23/2022 12:11:50 With:Nereyda Gomez CNP Address: When:[address] [facility] Looxcieation + Plan note Future Appointments Appointment Date:05/25/2022 08:45:00 AM Scheduled Provider: Location:[facility] Appointment Type:[facility]gery [facility] AudioMicroaluation + Plan note Future Appointments Appointment Date:06/10/2023 10:40:00 AM Scheduled Provider:Nereyda Gomez CNP Location:[place] [facility] Appointment Type:[facility] Follow Up Future Scheduled Tests Laboratory* Fecal WBC Lactoferrin 04/13/23 * Giardia lamblia, Direct Detection EIA 04/13/23 * O & P Exam, Routine 04/13/23 * Clostridium Difficile PCR 04/13/23 * Enteric Panel by PCR 04/13/23 [facility] AudioMicroaluation + Plan note Future Appointments Appointment Date:06/10/2023 10:40:00 AM Scheduled Provider:Nereyda Gomez CNP Location:[place] [facility] Appointment Type:[facility] Follow Up Diagnostic Tests Pending * O & P Exam, Routine 04/15/23 * Giardia lamblia, Direct Detection EIA 04/15/23 [facility] Future Appointments Appointment Date:09/13/2023 10:40:00 AM Scheduled Provider:Nereyda Gomez CNP Location:[place] [facility] Appointment Type:[facility] Follow Up [facility] Evaluation + Plan note Future Appointments Appointment Date:10/14/2023 02:20:00 PM Scheduled Provider:Nereyda Gomez CNP Location:[place] [facility] Appointment Type:[facility] Follow Up Future Scheduled Tests Laboratory* CBC w/ Auto Diff 10/01/23 * Comprehensive Metabolic Panel 10/01/23 * Thyroid Stimulating Hormone 10/01/23 [facility] Evaluation + Plan note Future Appointments Appointment Date:12/09/2023 02:00:00 PM Scheduled Provider:Nereyda Gomez CNP Location:[place] [facility] Appointment Type:BAD Follow Up Future Scheduled Tests Laboratory* CBC w/ Auto Diff 10/01/23 * Comprehensive Metabolic Panel 10/01/23 * Thyroid Stimulating Hormone 10/01/23 [facility] Evaluation + Plan note Future Appointments Appointment Date:10/26/2024 09:30:00 AM Scheduled Provider: Location:[facility] Appointment Type:URO Nurse Visit Appointment Date:12/04/2024 08:40:00 AM Scheduled Provider:MARQUIS LOUISE MD Location:[facility] Appointment Type:URO Office Visit Future Scheduled Tests Laboratory* CBC w/ Auto Diff 10/01/23 * Comprehensive Metabolic Panel 10/01/23 * Thyroid Stimulating Hormone 10/01/23 [facility] evaluation note* Diagnosis Melanocytic nevus of trunk- [...] underlying condition with diabetic polyneuropathy, unspecified whether care home insulin use (CMS/HCC) Pain due to onychomycosis of toenails of both feet [facility] N[facility]ative No data available for this section [facility] Hospital Discharge instructions No data available for this section [facility] No data available for this section [facility] Summary Purpose Family History No Family [...] Found No data available for this section Advance Directives No Advanced Directives Records FoundNo Advanced Directives Records FoundNo Advanced Directives Records FoundNo Advanced Directives Records FoundNo Advanced Directives Records Found Additional Source Comments (unrecognized sect ion and content) No Status Records FoundNo Status Records FoundNo Status Records FoundNo Status Records FoundNo Status Records Found INFORMATION SOURCE (unrecogn ized section and content) DATE CREATED AUTHOR 02/09/2019 [facility] DATE CREATED AUTHOR AUTHOR'S ORGANIZ ATION 03/28/2023 [facility] DATE CREATED AUTHOR AUTHOR'S ORGANIZ ATION 07/12/2024 [facility] DATE CREATED AUTHOR AUTHOR'S ORGANIZ ATION 09/15/2024 [facility] EPIC DATE CREATED AUTHOR AUTHOR'S ORGANIZ ATION 10/26/2024 [facility] Care Team (unrecognized sect ion and content) Personnel Name: Van Youssef MD Address: Address: [address] [place] [address] Answerer Relationship Specialty Start Date End Date Van Youssef MD [address] [place] [address] [phone] PCP - General Family Medicine 12/02/23 Answerer Relationship Specialty Start Date End Date Van Youssef MD [address] [place] [address] [phone] PCP - General Family Medicine 12/02/23 Answerer Relationship Specialty Start Date End Date Van Youssef MD [address] [place] [phone] - General Family Medicine 12/02/23 Answerer Relationship Specialty Start Date End Date Van Youssef MD [address] [place] [phone] PCP - General Family Medicine 12/02/23 Answerer Relationship Specialty Start Date End Date Van Youssef MD [address] [place] [phone] PCP - General Family Medicine 12/02/23 Answerer Relationship Specialty Start Date End Date Van Youssef MD [address] [place] [phone] PCP - General Family Medicine 12/02/23 Reason [...] BE BASED ON THE PRIMARY CLINICAL RECORDS. [facility]. provides no warranty or guarantee of the accuracy or completeness of information in this document.
[2024-10-28 11:09] VITALS: BP 170/90
--- NOTE | 2024-10-28 11:30 | ED_ITS ---
HPI - Male Genitourinary General Chief complaint: Urogenital-Male Stated complaint: BLOOD IN URINE- PROCEDURE ON 10/23/24 Time Seen by Provider: 10/28/24 11:30 Source: patient and family Mode of arrival: Wheelchair Limitations: no limitations History of Present Illness HPI Narrative: This patient here for difficulty urinating. He has not been able to void at all today. This past week he had a urological surgical procedure, UroLift. He was seen in the office on Wednesday and the catheter was removed. He has been voiding good until today. He does take aspirin and Eliquis. The states that preoperatively they stopped the Eliquis for 3 days. He does not have any other symptom at [facility] such as fever shakes or chills. He is not on any antibiotics. Does not have any chest pain abdominal pain or shortness of breath except in the suprapubic area where he feels like he needs to void. Related Data Home Medications ?Medication ?Instructions ?Recorded ?Confirmed ACETAMINOPHEN PM 1 tab PO BEDTIME 05/31/23 08/16/24 Vitamin B-Complex 1 tab PO .NOON 05/31/23 09/08/24 acyclovir 400 mg tablet 400 mg PO Q12H 05/31/23 09/08/24 alogliptin 25 mg tablet 25 mg PO DAILY 05/31/23 09/08/24 apixaban 2.5 mg tablet 2.5 mg PO BID 05/31/23 09/08/24 aspirin 81 mg tablet,delayed 81 mg PO DAILY 05/31/23 09/08/24 release (Adult Low Dose Aspirin) cholecalciferol (vitamin D3) 50 2,000 unit PO DAILY 05/31/23 09/08/24 mcg (2,000 unit) tablet (Thera-D) dicyclomine 10 mg capsule 10 mg PO QID PRN abdominal pain 05/31/23 09/08/24 empagliflozin 25 mg tablet 25 mg PO DAILY 05/31/23 08/16/24 (Jardiance) ezetimibe 10 mg tablet 10 mg PO DAILY 05/31/23 09/08/24 ferrous sulfate 325 mg (65 mg 325 mg PO BID 05/31/23 08/16/24 iron) tablet furosemide 40 mg tablet 40 mg PO Q12H 05/31/23 09/08/24 glimepiride 4 mg tablet 8 mg PO DAILY 05/31/23 09/08/24 labetalol 300 mg tablet 300 mg PO Q12H 05/31/23 09/08/24 magnesium See Rx Instructions PO BID 05/31/23 08/16/24 metoclopramide HCl 5 mg tablet 5 mg PO BEDTIME 05/31/23 09/08/24 tamsulosin 0.4 mg capsule 0.4 mg PO Q24H 05/31/23 09/08/24 alprazolam 0.25 mg tablet 0.25 mg PO BID 08/16/24 09/08/24 dextromethorphan-guaifenesin 30 1 tab PO Q12H 08/16/24 08/16/24 mg-600 mg tablet extended [id number] hr duloxetine 20 mg capsule,delayed 20 mg PO .QD 08/16/24 09/08/24 release escitalopram oxalate 5 mg tablet 5 mg PO .QD 08/16/24 09/08/24 pioglitazone 45 mg tablet (Actos) 45 mg PO DAILY 08/16/24 09/08/24 potassium chloride 20 mEq 40 meq PO .QD 08/16/24 09/08/24 tablet,extended release(part/cryst) Previous Rx's ?Medication ?Instructions ?Recorded clonidine HCl 0.1 mg tablet 0.2 mg (2 x 0.1 mg) PO Q12H #120 08/17/24 tabs Allergies Allergy/AdvReac Type Severity Reaction Status Date / Time nitroglycerin Allergy Intermediate Hypotension Verified 10/28/24 11:07 Iodinated Contrast Media AdvReac Intermediate renal Verified 10/28/24 11:07 problem [facility] Medical History (Updated 10/28/24 @ 11:34 by Inderjit Chapman MD) Lethargy ?R53.83 - Other fatigue (ICD-10) Difficulty with speech ?R47.9 - Unspecified speech disturbances (ICD-10) AMS (altered mental status) ?R41.82 - Altered mental status, unspecified (ICD-10) Balanitis ?N48.1 - Balanitis (ICD-10) Pulmonary edema ?J81.1 - Chronic pulmonary edema (ICD-10) Dyspnea ?R06.00 - Dyspnea, unspecified (ICD-10) Congestive heart failure ?I50.9 - Heart failure, unspecified (ICD-10) Heart failure ?I50.9 - Heart failure, unspecified (ICD-10) Neuropathy ?G62.9 - Polyneuropathy, unspecified (ICD-10) Occasional tremors ?R25.1 - Tremor, unspecified (ICD-10) History of diverticulosis ?Z87.19 - Personal history of other diseases of the digestive system (ICD-10) History of sleep apnea ?Z86.69 - Personal history of other diseases of the nervous system and sense organs (ICD-10) Diabetes ?E11.9 - Type 2 diabetes mellitus without complications (ICD-10) History of hypertension ?Z86.79 - Personal history of other diseases of the circulatory system (ICD- 10) History of gastroesophageal reflux (GERD) ?Z87.19 - Personal history of other diseases of the digestive system (ICD-10) History of asthma ?Z87.09 - Personal history of other diseases of the respiratory system (ICD- 10) Surgical History (Updated 10/10/23 @ 08:33 by Oscar Jewell) History of cardiac catheterization ?Z98.890 - Other specified postprocedural states (ICD-10) History of cholecystectomy ?Z90.49 - Acquired absence of other specified parts of digestive tract (ICD- 10) Family History (Updated 08/16/24 @ 11:04 by Ciarra Villalta RN) Father Family history of myocardial infarction Family history of CHF (congestive heart failure) Family history of hypertension Mother Family history of cancer Grandmother Family history of diabetes mellitus Social History (Updated 08/16/24 @ 11:05 by Ciarra Villalta RN) Within the past year, how often did you have a drink containing alcohol: 2-4 times a month Smoking status: Former smoker Non-prescribed substance use: denies use Highest level of school completed/degree received: 9th grade Little interest or pleasure in doing things: not at all Feeling down, depressed, or hopeless: not at all Exam Narrative Exam Narrative: Patient was seen by the nursing staff on his arrival. He is afebrile but uncomfortable in the suprapubic area. A bladder scan was done that showed approximately 800 cc of urine. A Palomares catheter was placed without any difficulty by the nursing staff. He had instantaneous return of initially yellow urine but then there was a small amount of blood in the urine drainage. The staff then notified me of the patient's arrival here. Patient feels much more comfortable now after draining his bladder. Abdomen is not distended with no guarding rebound rigidity or peritoneal findings. There is no swelling around the genital area. There is no clots in the Palomares catheter bag. Skin and integument are warm and dry with no clamminess or pallor. There is no respiratory distress and his vital signs are as noted. Constitutional Vital Signs, click to edit/add: Last Vital Signs Temp 97.2 F L 10/28/24 11:04 Pulse 89 10/28/24 11:04 Resp 24 H 10/28/24 11:04 BP 170/90 H 10/28/24 11:09 Pulse Ox 94 L 10/28/24 11:04 O2 Del Method Room Air 10/28/24 11:04 Course Vital Signs Vital signs: Vital Signs Temperature 97.2 F L 10/28/24 11:04 Pulse Rate 89 10/28/24 11:04 Respiratory Rate 24 H 10/28/24 11:04 Pulse Oximetry 94 L 10/28/24 11:04 Oxygen Delivery Method Room Air 10/28/24 11:04 Temperature 97.2 F L 10/28/24 11:04 Pulse Rate 89 10/28/24 11:04 Respiratory Rate 24 H 10/28/24 11:04 Blood Pressure 170/90 H 10/28/24 11:09 Pulse Oximetry 94 L 10/28/24 11:04 Oxygen Delivery Method Room Air 10/28/24 11:04 MDM - Male Genitourinary MDM Narrative Medical decision making narrative: This patient does have some blood in the Palomares catheter but the catheter was placed atraumatically. I will start him on antibiotic therapy, I would like him to stop the Eliquis until Wednesday when he can be seen by his urologist. They are comfortable taking care of the catheter at home as they have done this before. They should continue the aspirin. Discharge Plan Discharge Chief Complaint: Urogenital-Male Clinical Impression: Acute urinary obstruction Patient Disposition: Home, Self-Care Time of Disposition Decision: 11:33 Prescriptions / Home Meds: No Action pioglitazone [Actos] 45 mg tablet 45 mg PO DAILY alprazolam 0.25 mg tablet 0.25 mg PO BID duloxetine 20 mg capsule,delayed release(DR/EC) 20 mg PO .QD escitalopram oxalate 5 mg tablet 5 mg PO .QD potassium chloride 20 mEq tablet,ER particles/crystals 40 meq PO .QD dextromethorphan-guaifenesin 30-600 mg tablet extended release 12 hr 1 tab PO Q12H clonidine HCl 0.1 mg Tablet 0.2 mg PO Q12H Qty: 120 11RF acyclovir 400 mg tablet 400 mg PO Q12H dicyclomine 10 mg capsule 10 mg PO QID PRN (Reason: abdominal pain) ezetimibe 10 mg tablet 10 mg PO DAILY ferrous sulfate 325 mg (65 mg iron) tablet 325 mg PO BID furosemide 40 mg tablet 40 mg PO Q12H glimepiride 4 mg tablet 8 mg PO DAILY Rx Instructions: AT NOON labetalol 300 mg tablet 300 mg PO Q12H metoclopramide HCl 5 mg tablet 5 mg PO BEDTIME tamsulosin 0.4 mg capsule 0.4 mg PO Q24H magnesium 500 mg See Rx Instructions PO BID Rx Instructions: 2 TABLETS orally twice a day; Jardiance 25 mg tablet 25 mg PO DAILY Vitamin B-Complex tablet 1 tab PO .NOON cholecalciferol (vitamin D3) [Thera-D] 50 mcg (2,000 unit) tablet 2,000 unit PO DAILY ACETAMINOPHEN PM tablet 1 tab PO BEDTIME aspirin [Adult Low Dose Aspirin] 81 mg tablet,delayed release (DR/EC) 81 mg PO DAILY apixaban 2.5 mg tablet 2.5 mg PO BID alogliptin 25 mg tablet 25 mg PO DAILY Print Language: Australian Additional Instructions: Stop Eliquis until Wednesday, see the urology doctor on Wednesday. Start Cipro Referrals: Pj Sung MD [Primary Care Provider] - 1 week
[2024-10-28] MEDS: CIPROFLOXACIN HCL 500 MG TABLET PO (11:44)
== END 2024-10-28 12:08 | disposition home or self-care (01) ==
PROVIDERS: Emergency Provider Emergency Medicine Emergency Medical Services; PCP Family Medicine
DX: N13.9 Obstructive and reflux uropathy, unspecified (principal); Z79.82 Long term (current) use of aspirin; Z79.01 Long term (current) use of anticoagulants; Z90.49 Acquired absence of other specified parts of digestive tract; Z87.891 Personal history of nicotine dependence
CPT/HCPCS: 51702; 99283

== ENCOUNTER 2024-10-28 18:59 | Inpatient (IN) | payer MEDICARE, SELFPAY ==
--- OUTSIDE RECORDS SUMMARY | 2024-10-28 19:06 | XMS_ITS | CCD ---
Author Organization [facility] Care Team Providers Care Saddle Mechanic Name Role Phone PHYSICIAN, DEFAULT Admitting Unavailable PHYSICIAN, DEFAULT Attending Unavailable VAN YOUSSEF Primary Care Unavailable Van Youssef Primary Care Physician [phone] MIKAEL ., DR ARAUJO Primary Care Unavailable HOY ., DR ARAUJO Consulting Unavailable HOY ., DR ARAUJO Attending Unavailable HOY ., DR ARAUJO Admitting Unavailable ZIEBER, DR CLOVER Zimmer Consulting Unavailable UNGA, DR CRAMER Consulting Unavailable HOY ., DR ARAUJO Primary Care Unavailable UNGA, DR CRAMER Attending Unavailable UNGA, DR CRAMER Admitting Unavailable UNGA, DR CRAMER Consulting Unavailable HOY ., DR ARAUJO Primary Care Unavailable UNGA, DR CRAMER Attending Unavailable UNGA, DR CRAMER Admitting Unavailable HOY ., DR ARAUJO Consulting Unavailable HOY ., DR ARAUJO Primary Care Unavailable HOY ., DR ARAUJO Attending Unavailable HOY ., DR ARAUJO Admitting Unavailable UNGA, DR CRAMER Consulting Unavailable HOY ., DR ARAUJO Primary Care Unavailable UNGA, DR CRAMER Attending Unavailable UNGA, DR CRAMER Admitting Unavailable HOY ., DR [...] MYNOR Consulting Unavailable Yefri Dwyer Consulting Unavailable GARCIA, FRANCISCO Consulting Unavailable ALEJANDRA, PREETI Consulting Unavailable RUTHIE LINDA Attending Unavailable AMYJEFF COVARRUBIAS Attending Unavailable MOUKARBEL, CLARIBEL Attending Unavailable MOUKARBEL, CLARIBEL Attending Unavailable MOUKARBEL, CLARIBEL Attending Unavailable MOUKARBEL, CLARIBEL Attending Unavailable DANA APARICIO Attending Unavailable EDD, CLARIBEL Referring Unavailable Van Youssef MD Primary Care Provider [phone] BLAISE CHICAS Attending Unavailable BARRIE MONTOYA Attending Unavailable BLAISE CHICAS Attending Unavailable BLAISE CHICAS Attending Unavailable BLAISE CHICAS Attending Unavailable BLAISE CHICAS Attending Unavailable BLAISE CHICAS Attending Unavailable MICHAELLE, BARRIE Gil Attending Unavailable BLAISE CHICAS Attending Unavailable PETRODNEY QUINTERO Attending Unavailable BLAISE CHICAS Attending Unavailable Nereyda Gomez Attending Unavailable MD MARQUIS LOUISE Attending Unav ailable MD [...] [facility] Repository (15 sources) Contrast media; Translations: [Contrast Dye] Drug allergy Unknown (qualifier value) [facility] (20 sources) Hmg-Coa Reductase Inhibitors (Statins); Translations: [statins] Allergy to substance 08-24-20 23 Unknown [facility] (20 sources) Nitroglycerin; Translations: [nitroglycerin] Drug Allergy 02-23-20 22 Unknown (qualifier value) [facility] (2 sources) black walnut pollen extract; Translations: [UHXMGHC-JFJ-HYO REDUCTASE INHIBITORS] Drug Allergy 04-21-20 17 [facility] Repository (1 source) Iodine (And Iodine Containting Drugs) Drug allergy (disorder) 05-28-20 16 [facility] Repository (9 sources) IODINATED CONTRAST MEDIA; Translations: [IODINATED CONTRAST MEDIA] Propensity to adverse reactions to drug (disorder) 07-17-[address] [facility] Repository (8 sources) Nitroglycerin Allergy to substance 02-23-20 22 [facility] (1 source) Aminolevulinic Acid; Translations: [aminolevulinic acid] Drug Allergy 11-04-[address] [facility] Repository (1 source) Nitroglycerin; Translations: [Nitroglycerin Patch] Drug Allergy [facility] Repository Medications Current Medications Medication Drug Class(es) Dates Sig (Normalized) Sig (Original) acetaminophen 325 mg / HYDROcodone bitartrate 5 mg oral tablet (1 source) Opioid Agonist Start: 10-16-2024 take 1 tablet by mouth every six hours as needed for pain, then take 2 tablets by mouth every six hours as needed for pain Bottineau 325 mg-5 mg oral tablet 1 tab(s), Oral, q6hr, 2 tab(s), Refill(s) 0, Take q6hrs as needed for pain., [facility]/pharmacy #[id number], 185, cm, 10/02/24 11:15:00 EST, Height/Length [...] Active Start: 08-28-2020 take 1 capsule by [facility] once daily Align 4 mg oral capsule 4 mg = 1 cap(s), Oral, Daily, Take after completing the Antibiotics course, # 28 cap(s), Refills(s) 0, Pharmacy: [facility]/pharmacy #[id number], 185, cm, 08/28/20 12:05:00 EDT, [...] procedure., # 6 tab(s), Refills(s) 0, Pharmacy: [facility]/pharmacy #[id number], 185, cm, 10/02/24 11:15:00 EST, Height/Length Dosing, 91, kg, 10/02/24 11:15:00 EST, Weight Dosing Start Date: 10/16/24 Status: Ordered Start: 08-11-2024 take 1 tablet by joslyn th twice daily Cipro 500 mg Tab 500 mg = 1 tab(s), Oral, BID, Start 3 days prior to procedure., # 6 tab(s), Refills(s) 0, Pharmacy: [facility]/pharmacy #[id number], 185, cm, 08/08/24 10:28:00 EDT, Height/Length [...] procedure., # 1 tab(s), Refills(s) 0, Pharmacy: [facility]/pharmacy #[id number], 185, cm, 10/02/24 11:15:00 EST, Height/Length [...] Prior to colonoscopy Per physician's instructions, [facility]/pharmacy #[id number], 185, cm, 03/31/22 9:58:00 EDT, [...] week(s), # 42 tab(s), Refills(s) 0, Pharmacy: [facility]/pharmacy #[id number], 185, cm, 10/02/24 11:15:00 EST, Height/Length [...] Date: 01/09/19 Status: Ordered 60 actuat tiotropium 0.21094 mg/actuat inhalation spray (13 sources) Anticholinergic Start: [...] # 160 cap(s), Refills(s) 1, Pharmacy: [facility]/pharmacy #[id number], 185, cm, 08/28/20 12:05:00 EDT, [...] disease (2 sources) Atherosclerotic heart disease of [place] coronary artery without angina pectoris; Translations: [Atherosclerotic heart disease of [place] coronary artery without angina pectoris] Onset: 03-03-2024 [...] source) Long-term current use of anticoagulant; Translations: [[facility] (current) use of anticoagulants] Onset: 08-08-2024 Episodic [...] Onset: 04-30-2022 Episodic Other aftercare (1 source) [facility] (current) use of aspirin; Translations: [USP CURRENT USE OF ASPIRIN] Onset: 08-27-2022 Episodic Other aftercare (1 source) [facility] (current) use of anticoagulants; Translations: [USP CURRNT USE ANTICOAGULANTS] Onset: 08-27-2022 Episodic Other aftercare (1 source) Other extermination inspector (current) drug therapy; Translations: [OTH SLURRY WORKER CURRENT DRUG THERAPY] Onset: 08-27-2022 Episodic Other [...] Is Your Medications List NIFEdipine acetaminophen-hydrocod one (Bottine[place] 325 mg-5 mg oral tablet) acyclovir apixaban [...] MARQUIS LOUISE MD Where: [facility] [address], [address] [place] [address]- Medications What How Much When Why Instructions Unchanged acetaminophen-hydrocod one (Bottineau 325 mg-5 mg oral tablet) 1 Tablets [...] emptying Naus (more content not included)... Normal [facility] Inpatient Patient Summaryon 10-23-2024 Inpatient Patient Summary Inpatient Patient Summary [address] [address] Clinical Summary Person Information Name: NADIR BETH Age: 84 Years : 1940 Sex: Male PCP: Van Youssef MD Marital Status: Race: White Ethnicity: Non- or Language: Lao Visit Id: Visit Reason: BPH WITH URINARY OBSTRUCTION, INCOMPLETE BLADDER EMPTYING Speciality: Acuity: Enc Type: Outpatient Med Service: Surgery Arrival: 10/23/2024 13:48:15 Discharge: Dispo Type: Address: [address] [place] [address] [phone] Provider Notes: Diagnosis: Problems Active BPH with [...] This Visit Final Med List: acetaminophen-hydrocod one (Bottineau 325 mg-5 mg oral tablet) 1 Tablets [...] Patient Education Information: Benign Prostatic Hyperplasia Normal [facility] Main OR Intraoperative Recor don 10-23-2024 Main OR Intraoperative Record Main OR Intraoperative Record IntraOp Document Type FTURO Summary Primary Physician: MARQUIS LOUISE MD Finalized Date/Time: 10/23/24 15:03:19 Pt. Name: NADIR BETH Joy Borja/Sex: 1940 Male Med Rec #: [id number] Physician: MARQUIS LOUISE MD Financial #: [id number] Pt. Type: O Room/Bed: / Admit/Disch: 10/23/24 [...] 3 Case Attendee ADRIAN GUSTAFSON, Oliva Goel TECHNICAL OPERATIONS MANAGER, Ana CHO Role Performed Surgeon - Primary Driveway Attendant - Primary Scrub - Primary Time In [...] Implant Implant Identification Description UROLIFT Lot Number [id number] Lumber Cutter UROLIFT Catalog ???# UL2-C Expiration Date [...] Oliva Goel (more content not included)... Normal [facility] Main OR Preoperative Recordo n 10-23-2024 Main OR Preoperative Record Main OR Preoperative Record Holding Area Document Type FTURO Summary Primary Physician: MARQUIS LOUISE MD Finalized Date/Time: 10/23/24 14:17:30 Pt. Name: LAURAMiroslavaNADIR DUVALL D.O.B./Sex: 1940 Male Med Rec #: [id number] Physician: MARQUIS LOUISE MD Financial #: [id number] Pt. Type: O Room/Bed: / Admit/Disch: 10/23/24 [...] Complaints of Pain: No Skin Integrity Intact, [place], Warm, & Dry Vitals - EU Blood Pressure 152/78 Pulse 84 bpm Respirations 18 br/min SPO2 90 % Additional None RN Reviewed Yes Specimens Collected Last Modified By: Oliva Goel 10/23/24 14:17:29 Finalized By: Oliva Goel Document Signatures Signed By: Vincent Preeti BURGOS 10/23/24 14:05 Oliva Goel 10/23/24 14:[address] [facility] Operative Reporton 4 Operative Report Operative Report [...] urethral meatus. We then placed the 20 Belarusian cystoscope into the bladder. Bilobar hyperplasia was [...] able to easily navigate with a 20 Belarusian scope. Scope was then removed and an 18 Belarusian Palomares catheter was placed with return of light pink urine and no clots noted. This concluded the procedure. Patient was then transferred to PACU in stable condition. PLAN: Patient will follow-up in 2 days for Palomares catheter removal. 10 cc in the balloon Follow-up in 6 to 8 weeks with IPSS at that time Normal [facility] Comment on above: Result Comment: Elec tronically Signed By: ADRIAN GUSTAFSON, MARQUIS\.br\Date and Time Signed: 10/23/24 15:06 EST Outpatient Surgery Discharge Instructionon 10-23-2024 Outpatient Surgery Discharge Instruction Outpatient Surgery Discharge Instruction [place] [id number] Patient Discharge Instructions PERSON INFORMATION Name: NADIR [...] amount of (more content not included)... Normal [facility] Ambulatory Visit Summaryon 1 12-02-2023 Ambulatory Visit [...] Survey Yo (more content not included)... Normal [facility] Ambulatory Visit Summary Ambulatory Visit Summary NADIR HORN Joy :1940 Visit Date:10/02/2024 Ambulatory Visit Instructions [...] us for (more content not included)... Normal [facility] Urology Office/Clinic Noteon 10-02-2024 Urology Office/Clinic Note [...] with voice recognition artificial intelligence software, specifically Playcez, Cloud9 IDE and or Qloo. Substitutions may have occurred due to the [...] -Cipro 500mg bid start the day prior, Bottineau 325-5mg #2 q6hrs as needed for pain, [...] 3. 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) Pt presented to [facility] ER 08/06/24 with redness on the [...] and Lasix. -Dm control 6. 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 Hx of cardioversion. Elevated risk for periop complications. Based on patient's age, multiple medical comorbidities and his prostate size we discussed extensively that he will benefit most likely from a UroLift procedure. He is amenable to (more content not included)... Normal [facility] Comment on above: Result Comment: Elec tronically Signed By: MARQUIS LOUISE MD\.br\Date and Time Signed: 10/02/24 11:43 EST\.br\Electronically Co-Signed By: Roxy Gatica\.br\Date and Time Co-Signed: 10/02/24 11:21 EST\.br\Electronically Co-Signed By: Roxy Gatica\.br\Date and Time Co-Signed: 10/02/24 11:22 EST\.br\Electronically Co-Signed By: Roxy Gatica\.br\Date and Time Co-Signed: 10/02/24 11:23 EST Inpatient Patient Summaryon 09-25-2024 Inpatient Patient Summary Inpatient Patient Summary [place] [address] Clinical Summary Person Information Name: NADIR BETH Age: 84 Years : 1940 Sex: Male PCP: Van Yousesf MD Marital Status: Race: White Ethnicity: Non- or Language: Lao Visit Id: Visit Reason: ENLARGED PROSTATE WITH URINARY OBSTRUCTION, INCOMPLETE BLADDER EMPTYING Speciality: Acuity: Enc Type: Outpatient Med Service: Surgery Arrival: 09/25/2024 11:42:27 Discharge: Dispo Type: Address: [address] [place] [phone] Provider Notes: Diagnosis: Problems Active BPH with [...] With: Address: When: MARQUIS LOUISE [address] [place] [place] [id number] [phone] Business (1) Comments: Follow-up in the office in 2 weeks to discuss next plan With: Address: When: MARQUIS LOUISE [address] [place] [id number] [phone] Business (1) Patient Education Information: Benign Prostatic Hyperplasia Normal [facility] Main OR Intraoperative Recor don 09-25-2024 Main OR Intraoperative Record Main OR Intraoperative Record IntraOp Document Type FTURO Summary Primary Physician: MARQUIS LOUISE MD Finalized Date/Time: 09/25/24 13:23:58 Pt. Name: NADIR BETH D.O.B./Sex: 1940 Male Med Rec #: [id number] Physician: MARQUIS LOUISE MD Financial #: [id number] Pt. Type: O Room/Bed: / Admit/Disch: 09/25/24 [...] C KWABENA Role Performed Surgeon - Primary Driveway Attendant - Primary Scrub - Primary Time In [...] 09/25/24 13:23 Oliva Goel 09/25/24 13:[address] [facility] Main OR Preoperative Recordo n 09-25-2024 Main OR Preoperative Record Main OR Preoperative Record Holding Area Document Type FTURO Summary Primary Physician: MARQUIS LOUISE MD Finalized Date/Time: 09/25/24 13:04:51 Pt. Name: NADIR BETH /Sex: 1940 Male Med Rec #: [id number] Physician: MARQUIS LOUISE MD Financial #: [id number] Pt. Type: O Room/Bed: / Admit/Disch: 09/25/24 [...] Complaints of Pain: No Skin Integrity Intact, [place], Warm, & Dry Vitals - EU Blood Pressure Pulse Respirations SPO2 Additional None RN Reviewed Yes Specimens Collected Last Modified By: Oliva Goel 09/25/24 13:04:50 Finalized By: Oliva Goel Document Signatures Signed By: Preeti Kaur LPN 09/25/24 12:49 Oliva Goel 09/25/24 13:[address] [facility] Operative Reporton Operative Report Operative Report Patient: [...] steps Impression and Plan Counseled: Family. Normal [facility] Comment on above: Result Comment: Elec tronically Signed By: MARQUIS LOUISE MD\.br\Date and Time Signed: 09/25/24 13:27 EST Outpatient Surgery Discharge Instructionon 09-25-2024 Outpatient Surgery Discharge Instruction Outpatient Surgery Discharge Instruction [address] [address] Patient Discharge Instructions PERSON INFORMATION [...] 911 Follow up: With: Address: When: [place] [address] [phone] Electric Imp (1) Comments: Follow-up in the office in 2 weeks to discuss next plan With: Address: When: [place] [address] [phone] Electric Imp (1) Comment: PATIENT EDUCATION INFORMATION Instructions: Benign [...] frequen (more content not included)... Normal [facility] No Panel Informationon 08-24 [facility] Ambulatory Visit Summaryon 0 08-08-2024 Ambulatory [...] not included)... Normal [facility] Urology Office/Clinic Noteon 08-08-2024 Urology Office/Clinic Note Urology Office/Clinic Note Chief Complaint follow up to [facility] ER HPI Staff 84 year old male new patient follow up to [facility] 08/06/24 presented due to redness on [...] 1. 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) Pt presented to [facility] ER 08/06/24 with redness on the [...] channel, (more content not included)... Normal [facility] Comment on above: Result Comment: Elec tronically Signed By: MARQUIS LOUISE MD\.br\Date and Time Signed: 08/08/24 11:05 EDT\.br\Electronically Co-Signed By: Roxy Gatica\.br\Date and Time Co-Signed: 08/08/24 10:46 EDT\.br\Electronically Co-Signed By: Roxy Gatica\.br\Date and Time Co-Signed: 08/08/24 10:53 EDT Office Visiton 07-05-2024 Follow-up visit [id number] Nadir Beth 1940 M Date Provider Department Center 07/05/2024 RUTHIE OWEN [facility] Comprehensiv Family History Problem Relation Age of Onset Coronary artery disease Father Family Status - Relation Status Age at Father Level of Service:12198 MT OFFICE/OUTPATIENT ESTABLISHED MOD MDM 30 MIN Reason for Visit and Comments: Follow-up [034000] Normal [facility] 36on 06-20-2024 36 Regarding echo resul [...] her he should have another echo at [facility] in Oct 2024, prior to his follow up with Dr. Cisneros in Nov 2024. She verbalized understanding. Echo order faxed to [facility]. [facility] 06-14-2024 36 Patients called and stating that dr. Linda told her to call and let him know that her husbands blood pressure is better and she would like a call back. [facility] 06-09-2024 36 Spoke with patient's Shanna and made sure she understood to increase labetalol per Dr. Linda. She also understands not to resume hydralazine. [facility] 3606-07-2024 36 I'm Stephanie from Dr. Cisneros's office with Cardiology. Patient's daughter called and wanted to know if Dr. Linda had restarted patient's hydralazine- NOT hydroxyzine. I don't see in the note that it was restarted. Dr. Linda, or someone from his office- can you clarify this for me? Thanks so much. [facility] Follow-Upon 06-07-2024 Follow-Up [id number] Nadir Beth 1940 M Date Provider Department Center 06/07/2024 [place]-RUTHIE LINDA [facility] Comprehensiv Family History Problem Relation Age of Onset Coronary artery disease Father Family Status - Relation Status Age at Father Level of Service:57958 MT OFFICE/OUTPATIENT ESTABLISHED MOD MDM 30 MIN () Reason for Visit and Comments: Follow-up [625016] [facility] Telephoneon 06-07-2024 Telephone [id number] Nadir Beth 1940 M Date Provider Department Center 06/07/2024 Francisco-IRIS GUADALUPE [facility] Comprehensiv Family History Problem Relation Age of Onset Coronary artery disease Father Family Status - Relation Status Age at Father [facility] Office Visiton 06-05-2024 Follow-up visit [id number] Nadir Beth 1940 M Date Provider Department Center 06/05/2024 CLARIBEL VILLALOBOS MILKA [facility] Family History Problem Relation Age of Onset Coronary artery disease Father Family Status - Relation Status Age at Father Level of Service:80015 MT OFFICE/OUTPATIENT ESTABLISHED MOD MDM 30 MIN [facility] 3605-17-2024 36 Faxed lab orders 05/17/24 [facility] 05-15-2024 36 Patient states that he needs his blood work to go to [facility] before his appointment on 05/31/24. [facility] 05-10-2024 36 LM on for patient or his to return my call. [facility] 05-08-2024 36 Patient's bucio lidia with concerns of elevated BP since hydralazine was stopped at last apt. She said sometimes it's very good - 110/60's and sometimes 152/70. He's scheduled to see you in a few weeks. Did you want to change anything? Please advise. Thanks. [facility] 3604-04-2024 36 Regarding blood work from 04/03/2024: MD Stephanie Kelley MA Stable renal function. Continue same treatment and follow-up as planned. Patient's made aware. [facility] Orders Onlyon 03-21-2024 Orders Only [id number] Nadir Beth Joy 1940 M Date Provider Department Center 03/21/2024 LUCRETIA BENZ MILKA [facility] Family History Problem Relation Age of Onset Coronary artery disease Father Family Status - Relation Status Age at Father [facility] Office Visiton 03-03-2024 Follow-up visit [id number] Lauracarl,Nadir Hamilton 1940 M Date Provider Department Center 03/03/2024 CLARIBEL VILLALOBOS CARD [facility] Family History Problem Relation Age of Onset Coronary artery disease Father Family Status - Relation Status Age at Father Level of Service:74082 MT OFFICE/OUTPATIENT ESTABLISHED MOD MDM 30 MIN Reason for Visit and Comments: Follow-up [451032] [facility] 36on 12-29-2023 36 Called and spoke jaquan barrera patient and rescheduled patients appointment from 05/31 to 06/07. [facility] 36on 12-28-2023 36 Called patient lvm t o contact the office back to reschedule appointment. [facility] Follow-Upon 11-17-2023 Follow-Up [id number] Nadir Beth 1940 M Date Provider Department Center 11/17/2023 RUTHIE OWEN [facility] Comprehensiv Family History Problem Relation Age of Onset Coronary artery disease Father Family Status - Relation Status Age at Father Level of Service:05497 MT OFFICE/OUTPATIENT ESTABLISHED MOD MDM 30 MIN () Reason for Visit and Comments: Follow-up [449199] Chronic Kidney Disease [176] [facility] 36on 10-12-2023 36 Patient called to wander maynard aware that he was in [facility] ED on (Wednesday) for SOB. He wanted you to look over his records. I have uploaded them all into his mediator for your review. His BNP is increased to 4000 and was previously 2600 about 1 month ago. Looks like they gave him extra lasix in the ED and recommended he follow up with Dr. Youssef outpatient. Can you please review and let me know if you'd like anything done/ordered? Thanks. [facility] 36on 09-20-2023 36 Called and spoke jaquan barrera and rescheduled appointment and informed her patient would need to get labs done. [facility] 36 Patients called in to reschedule appointment from 09/08 [facility] Office Visiton 09-17-2023 Follow-up visit [id number] Steen 1940 M Date Provider Department Center 09/17/2023 CLARBIEL VILLALOBOS [facility] Family History Problem Relation Age of Onset Coronary artery disease Father Family Status - Relation Status Age at Father Level of Service:18007 MT OFFICE/OUTPATIENT ESTABLISHED MOD MDM 30-39 MIN Reason for Visit and Comments: Follow-up [525282] [facility] 08-31-2023 [facility] Cardiology - [facility] Subjective Nadir Beth is a [...] extremity edema. He was admitted to the [facility] in August 2022 due to hyponatremia, hyperkalemia and acute kidney injury, leukocytosis secondary to COVID-19 causing dehydration. I saw him on 05/24/2023 and the office and he had significant evidence of volume overload by exam and echocardiogram. I intensified his diuretic regimen. He ended up getting admitted to the [facility] with acute heart failure exacerbation and [...] Allergies Allergen Reactions Iodinated Contrast Media Nitroglycerin Yxideaj-Hpb-Rxl Reductase Inhibitors Medications Current Outpatient Medications: acyclovir [...] Take 1 ta (more content not included)... [facility] NURSNOTEon 08-31-2023 NURSNOTE Pt performed and passed bedside swallow study. RN educated pt on d/c instructions. RN encouraged pt to voice any questions or concerns. Pt verbalizes no questions or concerns at this time. Pt was wheeled off of unit with all of belongings. [facility] Telephoneon 08-24-2023 Telephone [id number] Nadir Beth 1940 M [facility] Provider Department Center 08/24/2023 RABIA KONG [facility] Family History Problem Relation Age of Onset Coronary artery disease Father Family Status - Relation Status Age at Father [facility] Office Visiton 07-21-2023 Follow-up visit [id number] Nadir Beth 1940 M Date Provider Department Center 07/21/2023 CLARIBEL VILLALOBOS MIL[facility] Family History Problem Relation Age of Onset Coronary artery disease Father Family Status - Relation Status Age at Father Level of Service:07511 MT OFFICE/OUTPATIENT ESTABLISHED MOD MDM 30-39 MIN Reason for Visit and Comments: Follow-up [[id number]] [facility] MICRO OTHER TESTSOrdered By: Francisco Bolanos on 04-15-2023 Fecal WBC Lactoferrin Negative (04/15/23 7:00 AM) Normal Negative [facility] Sero CHEMISTRYOrdered By: SYSTEM SYSTEM on 04-13-2023 Albumin [Mass/Vol] 3.8 g/dL Normal 3.3 - 5.0 gm/dL [facility] Remisol Albumin/Globulin [Mass ratio] 1.4 {ratio} Normal [...] 9.8 fL Normal 6.4 - 10.8 fL [facility] HemeAutoSS Platelets (Bld) [#/Vol] 161.0 E9/L Normal 150.0 - 500.0 E9/L [facility] HemeAutoSS RBC (Bld) [#/Vol] 4.0 E12/L Low 4.3 - 5.9 E12/L [facility] HemeAutoSS WBC corrected for nucl RBC Auto (Bld) [#/Vol] 6.7 E9/L Normal 4.0 - 11.0 E9/L [facility] HemeAutoSS ALBUMINon 03-24-2023 Albumin [Mass/Vol] 3.3 g/dL Critically low 3.4-5.0 [facility] Comment on above: Performed By: #### M ERICK Faith, PHOS #### [facility] [address] [address] [address] David Magana GLYCOHEMOGLOBIN A1Con 2022 ADA RECOMMENDATION SEE BELOW Normal [facility] Comment on above: Result Comment: ADA RECOMMENDED LIMIT 4.0 - 6.0 ADA THERAPEUTIC TARGET < 7.0 ACTION SUGGESTED > 7.0 Performed By: #### A 1C #### [facility] [address] [address] [address] David Magana Glucose [Mass/Vol] 108 mg/dL Normal [facility] Comment on above: Performed By: #### A 1C #### [facility] [address] [address] [address] David Magana HbA1c (Bld) [Mass fraction] 5.4 % Normal 4.5-6.2 [facility] Comment on above: Performed By: #### A 1C #### [facility] [address] [address] [address] David Magana PHOSPHORUSon 03-24-2023 Phosphate [Mass/Vol] 3.6 mg/dL Normal 2.6-4.7 [facility] Comment on above: Performed By: #### M ERICK Faith, PHOS #### [facility] [address] [address] [address] David Magana PROF CHEM 8 (BAS METB)on Anion gap [Moles/Vol] 11.6 mmol/L Normal [facility] Comment on above: Performed By: #### M ERICK Faith, PHOS #### [facility] [address] [address] [address] David Magana Calcium [Mass/Vol] 8.9 mg/dL Normal 8.5-10.1 [facility] Comment on above: Performed By: #### M ERICK Faith, PHOS #### [facility] [address] [address] [address] David Magana Chloride [Moles/Vol] 107 mmol/L Normal 98-107 [facility] Comment on above: Performed By: #### M ERICK Faith, PHOS #### [facility] [address] [place] [address] Dr. David Magana CO2 [Moles/Vol] 30.8 mmol/L Normal 21.0-32.0 [facility] Comment on above: Performed By: #### ERICK Jacques, PHOS #### [facility] [address] [address] [address] David Magana Creatinine [Mass/Vol] 1.67 mg/dL Critically high 0.70-1.30 [facility] Comment on above: Performed By: #### ERICK Jacques, PHOS #### [facility] [address] [place] [address] Dr. David Magana EGFR-AF AZERBAIJANI 48 mL/min/1.73m2 Critically low >=60 [facility] Comment on above: Performed By: #### ERICK Jacques, PHOS #### [facility] [address] [address] [address] David Magana EGFR-NON AF AZERBAIJANI 39 mL/min/1.73m2 Critically low >=60 [facility] Comment on above: Performed By: #### M ERICK Faith, PHOS #### [facility] [address] [address] [address] David Magana Glucose [Mass/Vol] 128 mg/dL Critically high 74-106 [facility] Comment on above: Performed By: #### M Marcell BMP, PHOS #### [facility] [address] [place] [address] Dr. David Magana Potassium [Moles/Vol] 4.4 mmol/L Normal 3.5-5.1 [facility] Comment on above: Performed By: #### M Marcell BMP, PHOS #### [facility] [address] [place] [address] Dr. David Magana Sodium [Moles/Vol] 145 mmol/L Normal 136-145 [facility] Comment on above: Performed By: #### M Marcell BMP, PHOS #### [facility] [address] [place] [address] Dr. David Magana Urea nitrogen [Mass/Vol] 25.0 mg/dL Critically high 7.0-18.0 [facility] Comment on above: Performed By: #### ERICK Jacques, PHOS #### [facility] [address] [place] [address] Dr. David Magana Urea nitrogen/Creatinine [Mass ratio] 15.0 mg/mg Normal [facility] Comment on above: Performed By: #### ERICK Jacques, PHOS #### [facility] [address] [place] [address] Dr. David Magana VITAMIN D 25 OHon 03-24-2023 VIT D 25-OH 11.6 ng/mL Normal [facility] Comment on above: Performed By: #### C BC #### [facility] [address] [place] [address] Dr. David Magana VIT D RANGES SEE BELOW Normal [facility] Comment on above: Result Comment: <20 ng/mL Vit D deficient 20 - <30 ng/mL Vit D insufficient 30 - 100 ng/mL Vit D sufficient >100 ng/mL Potential Toxicity Performed By: #### C BC #### [facility] [address] [place] [address] Dr. David Magana CBC AUTO DIFFon 02-27-2023 BASO # 0.0 103/ul Normal 0.0-0.1 [facility] Comment on above: Performed By: #### M ERICK Faith, PHOS #### [facility] [address] [place] [address] Dr. David Magana Basophils/100 WBC (Bld) 0.5 % Normal 0.2-2.0 [facility] Comment on above: Performed By: #### M G, BMP, PHOS #### [facility] [address] [place] [address] Dr. David Magana EO # 0.7 103/ul Normal 0.0-0.7 [facility] Comment on above: Performed By: #### M G, BMP, PHOS #### [facility] [address] [place] [address] Dr. David Magana Eosinophils/100 WBC (Bld) 9.3 % Critically high 0.9-7.0 [facility] Comment on above: Performed By: #### M G, BMP, PHOS #### [facility] [address] [place] [address] Dr. David Magana Erythrocyte distribution width (RBC) [Ratio] 14.6 % Normal 11.0-15.0 [facility] Comment on above: Performed By: #### M G, BMP, PHOS #### [facility] [address] [place] [address] Dr. David Magana Hematocrit (Bld) [Volume fraction] 41.5 % Critically low 42.0-54.0 [facility] Comment on above: Performed By: #### M G, BMP, PHOS #### [facility] [address] [place] [address] Dr. David Magana Hemoglobin (Bld) [Mass/Vol] 13.9 g/dL Critically low 14.0-18.0 [facility] Comment on above: Performed By: #### M G, BMP, PHOS #### [facility] [address] [place] [address] Dr. David Maagna IG # 0.02 10e3/ul Normal 0.00-0.03 [facility] Comment on above: Performed By: #### M G, BMP, PHOS #### [facility] [address] [place] [address] Dr. David Magana IG % 0.3 % Normal 0.0-0.5 [facility] Comment on above: Performed By: #### ERICK Jacques, PHOS #### [facility] [address] [place] [address] Dr. David Magana LYMPH # 1.0 103/ul Critically low 1.2-3.8 [facility] Comment on above: Performed By: #### ERICK Jacques, PHOS #### [facility] [address] [place] [address] Dr. David Magana Lymphocytes/100 WBC (Bld) 13.0 % Critically low 20.5-60.0 [facility] Comment on above: Performed By: #### ERICK Jacques, PHOS #### [facility] [address] [place] [address] Dr. David Magana MANUAL DIFF REQ NO Normal [facility] Comment on above: Performed By: #### ERICK Jacques, PHOS #### [facility] [address] [place] [address] Dr. David Magana MCH (RBC) [Entitic mass] 33.5 pg Normal 25.9-34.0 [facility] Comment on above: Performed By: #### ERICK Jacques, PHOS #### [facility] [address] [place] [address] Dr. David Magana MCHC (RBC) [Mass/Vol] 33.5 g/dL Normal 29.9-35.2 [facility] Comment on above: Performed By: #### ERICK Jacques, PHOS #### [facility] [address] [place] [address] Dr. David Magana MCV (RBC) [Entitic vol] 100.0 fL Critically high 80.0-94.0 [facility] Comment on above: Performed By: #### ERICK Jacques, PHOS #### [facility] [address] [place] [address] Dr. David Magana MONO # 0.8 103/ul Normal 0.3-0.8 [facility] Comment on above: Performed By: #### M G, BMP, PHOS #### [facility] [address] [place] [address] Dr. David Magana Monocytes/100 WBC (Bld) 10.1 % Normal 1.7-12.0 [facility] Comment on above: Performed By: #### M G, BMP, PHOS #### [facility] [address] [place] [address] Dr. David Magana NEUT # 5.0 103/ul Normal 1.4-6.5 [facility] Comment on above: Performed By: #### M G, BMP, PHOS #### [facility] [address] [place] [address] Dr. David Magana Neutrophils/100 WBC (Bld) 66.8 % Normal 43.0-75.0 [facility] Comment on above: Performed By: #### M Marcell, BMP, PHOS #### [facility] [address] [place] [address] Dr. David Magana Platelet mean volume (Bld) [Entitic vol] 11.2 fL Normal 9.5-13.5 [facility] Comment on above: Performed By: #### M Marcell BMP, PHOS #### [facility] [address] [place] [address] Dr. David Magana PLT 187 103/ul Normal 150-450 [facility] Comment on above: Performed By: #### M Marcell, BMP, PHOS #### [facility] [address] [place] [address] Dr. David Magana RBC 4.15 106/ul Critically low 4.70-6.10 [facility] Comment on above: Performed By: #### M G, BMP, PHOS #### [facility] [address] [place] [address] Dr. David Magana WBC 7.5 103/ul Normal 4.0-11.0 [facility] Comment on above: Performed By: #### M G, BMP, PHOS #### [facility] [address] [place] [address] Dr. David Magana PROF 14(COMP METB)on 023 Albumin [Mass/Vol] 3.5 g/dL Normal 3.4-5.0 [facility] Comment on above: Performed By: #### A 1C #### [facility] [address] [place] [address] Dr. David Magana Albumin/Globulin [Mass ratio] 1.1 {ratio} Normal [facility] Comment on above: Performed By: #### A 1C #### [facility] [address] [place] [address] Dr. David Magana ALP [Catalytic activity/Vol] 76 U/L Normal 46-116 [facility] Comment on above: Performed By: #### A 1C #### [facility] [address] [place] [address] Dr. David Magana ALT [Catalytic activity/Vol] 23 U/L Normal 16-63 [facility] Comment on above: Performed By: #### A 1C #### [facility] [address] [place] [address] Dr. David Magana Anion gap [Moles/Vol] 13.1 mmol/L Normal [facility] Comment on above: Performed By: #### A 1C #### [facility] [address] [place] [address] Dr. David Magana AST [Catalytic activity/Vol] 17 U/L Normal 15-37 [facility] Comment on above: Performed By: #### A 1C #### [facility] [address] [place] [address] Dr. David Magana Bilirubin [Mass/Vol] 0.7 mg/dL Normal 0.2-1.0 [facility] Comment on above: Performed By: #### A 1C #### [facility] [address] [place] [address] Dr. Daivd Magana Calcium [Mass/Vol] 9.0 mg/dL Normal 8.5-10.1 [facility] Comment on above: Performed By: #### A 1C #### [facility] [address] [place] [address] Dr. David Magana Chloride [Moles/Vol] 105 mmol/L Normal 98-107 [facility] Comment on above: Performed By: #### A 1C #### [facility] [address] [address] [address] David Magana CO2 [Moles/Vol] 29.0 mmol/L Normal 21.0-32.0 [facility] Comment on above: Performed By: #### A 1C #### [facility] [address] [address] [address] David Magana Creatinine [Mass/Vol] 1.77 mg/dL Critically high 0.70-1.30 [facility] Comment on above: Performed By: #### A 1C #### [facility] [address] [address] [address] David Magana EGFR-AF AZERBAIJANI 45 mL/min/1.73m2 Critically low >=60 [facility] Comment on above: Performed By: #### A 1C #### [facility] [address] [address] [address] David Magana EGFR-NON AF AZERBAIJANI 37 mL/min/1.73m2 Critically low >=60 [facility] Comment on above: Performed By: #### A 1C #### [facility] [address] [address] [address] David Magana Globulin (S) [Mass/Vol] 3.3 g/dL Normal [facility] Comment on above: Performed By: #### A 1C #### [facility] [address] [address] [address] David Magana Glucose [Mass/Vol] 135 mg/dL Critically high 74-106 [facility] Comment on above: Performed By: #### A 1C #### [facility] [address] [address] [address] David Magana Potassium [Moles/Vol] 4.1 mmol/L Normal 3.5-5.1 [facility] Comment on above: Performed By: #### A 1C #### [facility] [address] [address] [address] David Magana Protein [Mass/Vol] 6.8 g/dL Normal 6.4-8.2 [facility] Comment on above: Performed By: #### A 1C #### [facility] [address] [address] [address] David Magana Sodium [Moles/Vol] 143 mmol/L Normal 136-145 [facility] Comment on above: Performed By: #### A 1C #### [facility] [address] [address] [address] David Magana Urea nitrogen [Mass/Vol] 31.0 mg/dL Critically high 7.0-18.0 [facility] Comment on above: Performed By: #### A 1C #### [facility] [address] [address] [address] David Magana Urea nitrogen/Creatinine [Mass ratio] 17.5 mg/mg Normal [facility] Comment on above: Performed By: #### A 1C #### [facility] [address] [place] [address] Dr. David Magana PROTIMEon 02-27-2023 INR Coag (PPP) [Relative time] 0.99 {INR} Normal [facility] Comment on above: Performed By: #### A 1C #### [facility] [address] [address] [address] David Magana INR GUIDELINES SEE BELOW Normal [facility] Comment on above: Result Comment: IDANIA RED INR: 2.0 - 3.0 CONDITIONS NOT LISTED BELOW 2.5 - 3.5 FOR PROSTHETIC HEART VALVE REPLACEMENT 2.5 - 3.5 RECURRENT THROMBOSIS Performed By: #### A 1C #### [facility] [address] [place] [address] Dr. David Magana PT Coag (PPP) [Time] 10.5 s Normal 9.0-11.6 [facility] Comment on above: Performed By: #### A 1C #### [facility] [address] [place] [address] Dr. David Magana PTTon 02-27-2023 aPTT Coag (Bld) [Time] 33.0 s Normal 22.3-36.2 [facility] Comment on above: Performed By: #### P OCGLUC #### [facility] [address] [address] [address] David Magana ALBUMINon 12-28-2022 Albumin [Mass/Vol] 3.6 g/dL Normal 3.4-5.0 [facility] Comment on above: Performed By: #### C BC #### [facility] [address] [place] [address] Dr. David Magana GLYCOHEMOGLOBIN A1Con 2022 ADA RECOMMENDATION SEE BELOW Normal [facility] Comment on above: Result Comment: ADA RECOMMENDED LIMIT 4.0 - 6.0 ADA THERAPEUTIC TARGET < 7.0 ACTION SUGGESTED > 7.0 Performed By: #### P OCGLUC #### [facility] [address] [place] [address] Dr. David Magana Glucose [Mass/Vol] 140 mg/dL Normal [facility] Comment on above: Performed By: #### P OCGLUC #### [facility] [address] [place] [address] Dr. David Magana HbA1c (Bld) [Mass fraction] 6.5 % Critically high 4.5-6.2 [facility] Comment on above: Performed By: #### P OCGLUC #### [facility] [address] [place] [address] Dr. David Magana MAGNESIUMon 12-28-2022 Magnesium [Mass/Vol] 2.3 mg/dL Normal 1.8-2.4 [facility] Comment on above: Performed By: #### P OCGLUC #### [facility] [address] [place] [address] Dr. David Magana PROF CHEM 8 (BAS METB)on Anion gap [Moles/Vol] 13.2 mmol/L Normal [facility] Comment on above: Performed By: #### P OCGLUC #### [facility] [address] [place] [address] Dr. David Magana Calcium [Mass/Vol] 9.0 mg/dL Normal 8.5-10.1 [facility] Comment on above: Performed By: #### P OCGLUC #### [facility] [address] [address] [address] David Magana Chloride [Moles/Vol] 105 mmol/L Normal 98-107 [facility] Comment on above: Performed By: #### P OCGLUC #### [facility] [address] [address] [address] David Magana CO2 [Moles/Vol] 28.9 mmol/L Normal 21.0-32.0 [facility] Comment on above: Performed By: #### P OCGLUC #### [facility] [address] [address] [address] David Magana Creatinine [Mass/Vol] 1.66 mg/dL Critically high 0.70-1.30 [facility] Comment on above: Performed By: #### P OCGLUC #### [facility] [address] [address] [address] David Magana EGFR-AF AZERBAIJANI 48 mL/min/1.73m2 Critically low >=60 [facility] Comment on above: Performed By: #### P OCGLUC #### [facility] [address] [address] [address] David Magana EGFR-NON AF AZERBAIJANI 40 mL/min/1.73m2 Critically low >=60 [facility] Comment on above: Performed By: #### P OCGLUC #### [facility] [address] [address] [address] David Magana Glucose [Mass/Vol] 123 mg/dL Critically high 74-106 [facility] Comment on above: Performed By: #### P OCGLUC #### [facility] [address] [address] [address] David Magana Potassium [Moles/Vol] 4.1 mmol/L Normal 3.5-5.1 [facility] Comment on above: Performed By: #### P OCGLUC #### [facility] [address] [address] [address] David Magana Sodium [Moles/Vol] 143 mmol/L Normal 136-145 [facility] Comment on above: Performed By: #### P OCGLUC #### [facility] [address] [address] [address] David Magana Urea nitrogen [Mass/Vol] 29.0 mg/dL Critically high 7.0-18.0 [facility] Comment on above: Performed By: #### P OCGLUC #### [facility] [address] [place] [address] Dr. David Magana Urea nitrogen/Creatinine [Mass ratio] 17.5 mg/mg Normal [facility] Comment on above: Performed By: #### P OCGLUC #### [facility] [address] [place] [address] Dr. David Magana URINE T PROTEIN CREAT RATIOo n 12-28-2022 UR TOTAL PROTEIN <6.0 Normal <=12.0 [facility] Comment on above: Performed By: #### M G, BMP, PHOS #### [facility] [address] [place] [address] Dr. David Magana URINE CREAT 41.21 mg/dL Normal 20.00-300.00 [facility] Comment on above: Performed By: #### M G, BMP, PHOS #### [facility] [address] [place] [address] Dr. David Magana ALBUMINon 11-16-2022 Albumin [Mass/Vol] 3.3 g/dL Critically low 3.4-5.0 [facility] Comment on above: Performed By: #### C BC #### [facility] [address] [place] [address] Dr. David Magana CREATININE URINEon URINE CREAT 19.69 mg/dL Critically low 20.00-300.00 [facility] Comment on above: Performed By: #### M G, BMP, PHOS #### [facility] [address] [place] [address] Dr. David Magana HEMOGLOBINon 11-16-2022 Hemoglobin (Bld) [Mass/Vol] 14.9 g/dL Normal 14.0-18.0 [facility] Comment on above: Performed By: #### M G, BMP, PHOS #### [facility] [address] [place] [address] Dr. David Magana MAGNESIUMon 11-16-2022 Magnesium [Mass/Vol] 2.2 mg/dL Normal 1.8-2.4 [facility] Comment on above: Performed By: #### C BC #### [facility] [address] [place] [address] Dr. David Magana PHOSPHORUSon 11-16-2022 Phosphate [Mass/Vol] 3.9 mg/dL Normal 2.6-4.7 [facility] Comment on above: Performed By: #### C BC #### [facility] [address] [place] [address] Dr. David Magana PROF CHEM 8 (BAS METB)on Anion gap [Moles/Vol] 11.9 mmol/L Normal [facility] Comment on above: Performed By: #### C BC #### [facility] [address] [place] [address] Dr. David Magana Calcium [Mass/Vol] 8.8 mg/dL Normal 8.5-10.1 [facility] Comment on above: Performed By: #### C BC #### [facility] [address] [place] [address] Dr. David Magana Chloride [Moles/Vol] 104 mmol/L Normal 98-107 [facility] Comment on above: Performed By: #### C BC #### [facility] [address] [place] [address] Dr. David Magana CO2 [Moles/Vol] 27.4 mmol/L Normal 21.0-32.0 [facility] Comment on above: Performed By: #### C BC #### [facility] [address] [place] [address] Dr. David Magana Creatinine [Mass/Vol] 1.68 mg/dL Critically high 0.70-1.30 [facility] Comment on above: Performed By: #### C BC #### [facility] [address] [place] [address] Dr. David Magana EGFR-AF AZERBAIJANI 48 mL/min/1.73m2 Critically low >=60 [facility] Comment on above: Performed By: #### C BC #### [facility] [address] [address] [address] David Magana EGFR-NON AF AZERBAIJANI 39 mL/min/1.73m2 Critically low >=60 [facility] Comment on above: Performed By: #### C BC #### [facility] [address] [address] [address] David Magana Glucose [Mass/Vol] 212 mg/dL Critically high 74-106 [facility] Comment on above: Performed By: #### C BC #### [facility] [address] [address] [address] David Magana Potassium [Moles/Vol] 4.3 mmol/L Normal 3.5-5.1 [facility] Comment on above: Performed By: #### C BC #### [facility] [address] [address] [address] David Magana Sodium [Moles/Vol] 139 mmol/L Normal 136-145 [facility] Comment on above: Performed By: #### C BC #### [facility] [address] [address] [address] David Magana Urea nitrogen [Mass/Vol] 25.0 mg/dL Critically high 7.0-18.0 [facility] Comment on above: Performed By: #### C BC #### [facility] [address] [address] [address] David Magana Urea nitrogen/Creatinine [Mass ratio] 14.9 mg/mg Normal [facility] Comment on above: Performed By: #### C BC #### [facility] [address] [address] [address] David Magana PROTEIN RAND URINEon 023 UR PROT <5.0 Normal <=11.9 [facility] Comment on above: Performed By: #### M G, BMP, PHOS #### [facility] [address] [address] [address] David Magana US CHANI DOP LEG [...] CLOVER PEREZ Date: 2022-11-02 16:21 Normal [facility] BNPon 07-22-2022 Natriuretic peptide B (Bld) [Mass/Vol] 2143.0 pg/mL Critically high <=1,800.0 [facility] Comment on above: Performed By: #### M ERICK Faith PHOS #### [facility] [address] [place] [address] Dr. David Magana CBC AUTO DIFFon 07-22-2022 BASO # 0.0 103/ul Normal 0.0-0.1 [facility] Comment on above: Performed By: #### A 1C #### [facility] [address] [place] [address] Dr. David Magana Basophils/100 WBC (Bld) 0.3 % Normal 0.2-2.0 [facility] Comment on above: Performed By: #### A 1C #### [facility] [address] [place] [address] Dr. David Magana EO # 0.3 103/ul Normal 0.0-0.7 [facility] Comment on above: Performed By: #### A 1C #### [facility] [address] [place] [address] Dr. David Magana Eosinophils/100 WBC (Bld) 2.4 % Normal 0.9-7.0 [facility] Comment on above: Performed By: #### A 1C #### [facility] [facility] [address] [place] [address] Dr. David Magana Erythrocyte distribution width (RBC) [Ratio] 13.4 % Normal 11.0-15.0 [facility] Comment on above: Performed By: #### A 1C #### [facility] [address] [place] [address] Dr. David Magana Hematocrit (Bld) [Volume fraction] 42.7 % Normal 42.0-54.0 [facility] Comment on above: Performed By: #### A 1C #### [facility] [address] [place] [address] Dr. David Magana Hemoglobin (Bld) [Mass/Vol] 14.2 g/dL Normal 14.0-18.0 [facility] Comment on above: Performed By: #### A 1C #### [facility] [address] [address] [address] David Magana IG # 0.18 10e3/ul Critically high 0.00-0.03 [facility] Comment on above: Performed By: #### A 1C #### [facility] [address] [place] [address] Dr. David Magana IG % 1.6 % Critically high 0.0-0.5 [facility] Comment on above: Performed By: #### A 1C #### [facility] [address] [address] [address] David Magana LYMPH # 0.9 103/ul Critically low 1.2-3.8 [facility] Comment on above: Performed By: #### A 1C #### [facility] [address] [place] [address] Dr. David Magana Lymphocytes/100 WBC (Bld) 8.1 % Critically low 20.5-60.0 [facility] Comment on above: Performed By: #### A 1C #### [facility] [address] [place] [address] Dr. David Magana MANUAL DIFF REQ NO Normal [facility] Comment on above: Performed By: #### A 1C #### [facility] [address] [place] [address] Dr. David Magana MCH (RBC) [Entitic mass] 33.3 pg Normal 25.9-34.0 [facility] Comment on above: Performed By: #### A 1C #### [facility] [address] [place] [address] Dr. David Magana MCHC (RBC) [Mass/Vol] 33.3 g/dL Normal 29.9-35.2 [facility] Comment on above: Performed By: #### A 1C #### [facility] [address] [place] [address] Dr. David Magana MCV (RBC) [Entitic vol] 100.2 fL Critically high 80.0-94.0 [facility] Comment on above: Performed By: #### A 1C #### [facility] [address] [address] [address] David Magana MONO # 1.2 103/ul Critically high 0.3-0.8 [facility] Comment on above: Performed By: #### A 1C #### [facility] [address] [place] [address] Dr. David Magana Monocytes/100 WBC (Bld) 10.5 % Normal 1.7-12.0 [facility] Comment on above: Performed By: #### A 1C #### [facility] [address] [place] [address] Dr. David Magana NEUT # 8.9 103/ul Critically high 1.4-6.5 [facility] Comment on above: Performed By: #### A 1C #### [facility] [address] [place] [address] Dr. David Magana Neutrophils/100 WBC (Bld) 77.1 % Critically high 43.0-75.0 [facility] Comment on above: Performed By: #### A 1C #### [facility] [address] [place] [address] Dr. David Magana Platelet mean volume (Bld) [Entitic vol] 11.3 fL Normal 9.5-13.5 [facility] Comment on above: Performed By: #### A 1C #### [facility] [address] [place] [address] Dr. David Magana PLT 175 103/ul Normal 150-450 [facility] Comment on above: Performed By: #### A 1C #### [facility] [address] [place] [address] Dr. David Magana RBC 4.26 106/ul Critically low 4.70-6.10 [facility] Comment on above: Performed By: #### A 1C #### [facility] [address] [place] [address] Dr. David Magana WBC 11.5 103/ul Critically high 4.0-11.0 [facility] Comment on above: Performed By: #### A 1C #### [facility] [address] [place] [address] Dr. David Magana PROF 14(COMP METB)on 022 Albumin [Mass/Vol] 2.6 g/dL Critically low 3.4-5.0 [facility] Comment on above: Performed By: #### ERICK Jacques, PHOS #### [facility] [address] [place] [address] Dr. David Magana Albumin/Globulin [Mass ratio] 0.9 {ratio} Normal [facility] Comment on above: Performed By: #### ERICK Jacques, PHOS #### [facility] [address] [place] [address] Dr. David Magana ALP [Catalytic activity/Vol] 49 U/L Normal 46-116 [facility] Comment on above: Performed By: #### ERICK Jacques, PHOS #### [facility] [address] [place] [address] Dr. David Magana ALT [Catalytic activity/Vol] 25 U/L Normal 16-63 [facility] Comment on above: Performed By: #### ERICK Jacques, PHOS #### [facility] [address] [place] [address] Dr. David Magana Anion gap [Moles/Vol] 12.8 mmol/L Normal [facility] Comment on above: Performed By: #### M Marcell BMP, PHOS #### [facility] [address] [place] [address] Dr. David Magana AST [Catalytic activity/Vol] 9 U/L Critically low 15-37 [facility] Comment on above: Performed By: #### Jim Faith BMP, PHOS #### [facility] [address] [address] [address] David Magana Bilirubin [Mass/Vol] 0.5 mg/dL Normal 0.2-1.0 [facility] Comment on above: Performed By: #### M G, BMP, PHOS #### [facility] [address] [address] [address] David Magana Calcium [Mass/Vol] 8.3 mg/dL Critically low 8.5-10.1 [facility] Comment on above: Performed By: #### M G, BMP, PHOS #### [facility] [address] [address] [address] David Magana Chloride [Moles/Vol] 105 mmol/L Normal 98-107 [facility] Comment on above: Performed By: #### M G, BMP, PHOS #### [facility] [address] [place] [address] Dr. David Magana CO2 [Moles/Vol] 24.2 mmol/L Normal 21.0-32.0 [facility] Comment on above: Performed By: #### M G, BMP, PHOS #### [facility] [address] [address] [address] David Magana Creatinine [Mass/Vol] 1.28 mg/dL Normal 0.70-1.30 [facility] Comment on above: Performed By: #### M G, BMP, PHOS #### [facility] [address] [address] [address] David Magana EGFR-AF AZERBAIJANI >60 Normal >=60 [facility] Comment on above: Performed By: #### M G, BMP, PHOS #### [facility] [address] [address] [address] David Magana EGFR-NON AF AZERBAIJANI 54 mL/min/1.73m2 Critically low >=60 [facility] Comment on above: Performed By: #### M G, BMP, PHOS #### [facility] [address] [address] [address] David Magana Globulin (S) [Mass/Vol] 2.9 g/dL Normal [facility] Comment on above: Performed By: #### M ERICK Faith, PHOS #### [facility] [address] [address] [address] David Magana Glucose [Mass/Vol] 205 mg/dL Critically high 74-106 [facility] Comment on above: Performed By: #### M ERICK Faith, PHOS #### [facility] [address] [place] [address] Dr. David Magana Potassium [Moles/Vol] 4.0 mmol/L Normal 3.5-5.1 [facility] Comment on above: Performed By: #### ERICK Jacques, PHOS #### [facility] [address] [place] [address] Dr. David Magana Protein [Mass/Vol] 5.5 g/dL Critically low 6.4-8.2 [facility] Comment on above: Performed By: #### ERICK Jacques, PHOS #### [facility] [address] [place] [address] Dr. David Magana Sodium [Moles/Vol] 138 mmol/L Normal 136-145 [facility] Comment on above: Performed By: #### ERICK Jacques, PHOS #### [facility] [address] [place] [address] Dr. David Magana Urea nitrogen [Mass/Vol] 36.0 mg/dL Critically high 7.0-18.0 [facility] Comment on above: Performed By: #### ERICK Jacques, PHOS #### [facility] [address] [place] [address] Dr. David Magana Urea nitrogen/Creatinine [Mass ratio] 28.1 mg/mg Normal [facility] Comment on above: Performed By: #### ERICK Jacques, PHOS #### [facility] [address] [place] [address] Dr. David Magana BNPon 07-21-2022 Natriuretic peptide B (Bld) [Mass/Vol] 3485.0 pg/mL Critically high <=1,800.0 [facility] Comment on above: Result Comment: repe ated Performed By: #### A 1C #### [facility] [address] [address] [address] David Magana CBC AUTO DIFFon 07-21-2022 BASO # 0.0 103/ul Normal 0.0-0.1 [facility] Comment on above: Performed By: #### C BC #### [facility] [address] [address] [address] David Magana Basophils/100 WBC (Bld) 0.3 % Normal 0.2-2.0 [facility] Comment on above: Performed By: #### C BC #### [facility] [address] [address] [address] David Magana EO # 0.2 103/ul Normal 0.0-0.7 [facility] Comment on above: Performed By: #### C BC #### [facility] [address] [place] [address] Dr. David Magana Eosinophils/100 WBC (Bld) 1.9 % Normal 0.9-7.0 [facility] Comment on above: Performed By: #### C BC #### [facility] [address] [address] [address] David Magana Erythrocyte distribution width (RBC) [Ratio] 13.4 % Normal 11.0-15.0 [facility] Comment on above: Performed By: #### C BC #### [facility] [address] [place] [address] Dr. David Magana Hematocrit (Bld) [Volume fraction] 42.5 % Normal 42.0-54.0 [facility] Comment on above: Performed By: #### C BC #### [facility] [address] [address] [address] David Magana Hemoglobin (Bld) [Mass/Vol] 14.2 g/dL Normal 14.0-18.0 [facility] Comment on above: Performed By: #### C BC #### [facility] [address] [address] [address] David Magana IG # 0.22 10e3/ul Critically high 0.00-0.03 [facility] Comment on above: Performed By: #### C BC #### [facility] [address] [address] [address] David Magana IG % 2.1 % Critically high 0.0-0.5 [facility] Comment on above: Performed By: #### C BC #### [facility] [address] [address] [address] David Magana LYMPH # 0.8 103/ul Critically low 1.2-3.8 [facility] Comment on above: Performed By: #### C BC #### [facility] [address] [place] [address] Dr. David Magana Lymphocytes/100 WBC (Bld) 7.7 % Critically low 20.5-60.0 [facility] Comment on above: Performed By: #### C BC #### [facility] [address] [place] [address] Dr. David Magana MANUAL DIFF REQ NO Normal [facility] Comment on above: Performed By: #### C BC #### [facility] [address] [address] [address] David Magana MCH (RBC) [Entitic mass] 33.0 pg Normal 25.9-34.0 [facility] Comment on above: Performed By: #### C BC #### [facility] [address] [place] [address] Dr. David Magana MCHC (RBC) [Mass/Vol] 33.4 g/dL Normal 29.9-35.2 [facility] Comment on above: Performed By: #### C BC #### [facility] [address] [place] [address] Dr. David Magana MCV (RBC) [Entitic vol] 98.8 fL Critically high 80.0-94.0 [facility] Comment on above: Performed By: #### C BC #### [facility] [address] [place] [address] Dr. David Magana MONO # 1.0 103/ul Critically high 0.3-0.8 [facility] Comment on above: Performed By: #### C BC #### [facility] [address] [address] [address] David Magana Monocytes/100 WBC (Bld) 9.7 % Normal 1.7-12.0 [facility] Comment on above: Performed By: #### C BC #### [facility] [address] [address] [address] David Magana NEUT # 8.1 103/ul Critically high 1.4-6.5 [facility] Comment on above: Performed By: #### C BC #### [facility] [address] [place] [address] Dr. David Magana Neutrophils/100 WBC (Bld) 78.3 % Critically high 43.0-75.0 [facility] Comment on above: Performed By: #### C BC #### [facility] [address] [place] [address] Dr. David Magana Platelet mean volume (Bld) [Entitic vol] 10.7 fL Normal 9.5-13.5 [facility] Comment on above: Performed By: #### C BC #### [facility] [address] [place] [address] Dr. David Magana PLT 177 103/ul Normal 150-450 [facility] Comment on above: Performed By: #### C BC #### [facility] [address] [place] [address] Dr. David Magana RBC 4.30 106/ul Critically low 4.70-6.10 [facility] Comment on above: Performed By: #### C BC #### [facility] [address] [place] [address] Dr. David Magana WBC 10.4 103/ul Normal 4.0-11.0 [facility] Comment on above: Performed By: #### C BC #### [facility] [address] [place] [address] Dr. David Magana PROF 14(COMP METB)on 022 Albumin [Mass/Vol] 2.6 g/dL Critically low 3.4-5.0 [facility] Comment on above: Performed By: #### A 1C #### [facility] [address] [address] [address] David Magana Albumin/Globulin [Mass ratio] 1.0 {ratio} Normal [facility] Comment on above: Performed By: #### A 1C #### [facility] [address] [place] [address] Dr. David Magana ALP [Catalytic activity/Vol] 50 U/L Normal 46-116 [facility] Comment on above: Performed By: #### A 1C #### [facility] [address] [place] [address] Dr. David Magana ALT [Catalytic activity/Vol] 28 U/L Normal 16-63 [facility] Comment on above: Performed By: #### A 1C #### [facility] [address] [place] [address] Dr. David Magana Anion gap [Moles/Vol] 11.4 mmol/L Normal [facility] Comment on above: Performed By: #### A 1C #### [facility] [address] [place] [address] Dr. David Magana AST [Catalytic activity/Vol] 13 U/L Critically low 15-37 [facility] Comment on above: Performed By: #### A 1C #### [facility] [address] [place] [address] Dr. David Magana Bilirubin [Mass/Vol] 0.4 mg/dL Normal 0.2-1.0 [facility] Comment on above: Performed By: #### A 1C #### [facility] [address] [place] [address] Dr. David Magana Calcium [Mass/Vol] 8.4 mg/dL Critically low 8.5-10.1 [facility] Comment on above: Performed By: #### A 1C #### [facility] [address] [place] [address] Dr. David Magana Chloride [Moles/Vol] 107 mmol/L Normal 98-107 [facility] Comment on above: Performed By: #### A 1C #### [facility] [address] [address] [address] David Magana CO2 [Moles/Vol] 24.6 mmol/L Normal 21.0-32.0 [facility] Comment on above: Performed By: #### A 1C #### [facility] [address] [place] [address] Dr. David Magana Creatinine [Mass/Vol] 1.26 mg/dL Normal 0.70-1.30 [facility] Comment on above: Performed By: #### A 1C #### [facility] [address] [place] [address] Dr. David Magana EGFR-AF AZERBAIJANI >60 Normal >=60 [facility] Comment on above: Performed By: #### A 1C #### [facility] [address] [place] [address] Dr. David Magana EGFR-NON AF AZERBAIJANI 55 mL/min/1.73m2 Critically low >=60 [facility] Comment on above: Performed By: #### A 1C #### [facility] [address] [place] [address] Dr. David Magana Globulin (S) [Mass/Vol] 2.7 g/dL Normal [facility] Comment on above: Performed By: #### A 1C #### [facility] [address] [place] [address] Dr. aDvid Magana Glucose [Mass/Vol] 203 mg/dL Critically high 74-106 T [facility] Comment on above: Performed By: #### A 1C #### [facility] [address] [place] [address] Dr. David Magana Potassium [Moles/Vol] 4.0 mmol/L Normal 3.5-5.1 [facility] Comment on above: Performed By: #### A 1C #### [facility] [address] [place] [address] Dr. David Magana Protein [Mass/Vol] 5.3 g/dL Critically low 6.4-8.2 [facility] Comment on above: Performed By: #### A 1C #### [facility] [address] [place] [address] Dr. David Magana Sodium [Moles/Vol] 139 mmol/L Normal 136-145 [facility] Comment on above: Performed By: #### A 1C #### [facility] [address] [place] [address] Dr. David Magana Urea nitrogen [Mass/Vol] 33.0 mg/dL Critically high 7.0-18.0 [facility] Comment on above: Performed By: #### A 1C #### [facility] [address] [place] [address] Dr. David Magana Urea nitrogen/Creatinine [Mass ratio] 26.2 mg/mg Normal [facility] Comment on above: Performed By: #### A 1C #### [facility] [address] [place] [address] Dr. David Magana BNPon 07-20-2022 Natriuretic peptide B (Bld) [Mass/Vol] 7478.0 pg/mL Critically high <=1,800.0 [facility] Comment on above: Performed By: #### A 1C #### [facility] [address] [place] [address] Dr. Davdi Magana CBC AUTO DIFFon 07-20-2022 BASO # 0.1 103/ul Normal 0.0-0.1 [facility] Comment on above: Performed By: #### ERICK Jacques, PHOS #### [facility] [address] [place] [address] Dr. David Magana Basophils/100 WBC (Bld) 0.8 % Normal 0.2-2.0 [facility] Comment on above: Performed By: #### ERICK Jacques, PHOS #### [facility] [address] [place] [address] Dr. David Magana EO # 0.1 103/ul Normal 0.0-0.7 [facility] Comment on above: Performed By: #### ERICK Jacques, PHOS #### [facility] [address] [place] [address] Dr. David Magana Eosinophils/100 WBC (Bld) 0.6 % Critically low 0.9-7.0 [facility] Comment on above: Performed By: #### M ERICK Faith, PHOS #### [facility] [address] [place] [address] Dr. David Magana Erythrocyte distribution width (RBC) [Ratio] 13.4 % Normal 11.0-15.0 [facility] Comment on above: Performed By: #### M ERICK Faith, PHOS #### [facility] [address] [place] [address] Dr. David Magana Hematocrit (Bld) [Volume fraction] 43.2 % Normal 42.0-54.0 [facility] Comment on above: Performed By: #### ERICK Jacques, PHOS #### [facility] [address] [place] [address] Dr. David Magana Hemoglobin (Bld) [Mass/Vol] 14.2 g/dL Normal 14.0-18.0 [facility] Comment on above: Performed By: #### ERICK Jacques, PHOS #### [facility] [address] [place] [address] Dr. David Magana IG # 0.21 10e3/ul Critically high 0.00-0.03 [facility] Comment on above: Performed By: #### ERICK Jacques, PHOS #### [facility] [address] [place] [address] Dr. David Magana IG % 2.0 % Critically high 0.0-0.5 [facility] Comment on above: Performed By: #### ERICK Jacques, PHOS #### [facility] [address] [place] [address] Dr. David Magana LYMPH # 0.8 103/ul Critically low 1.2-3.8 [facility] Comment on above: Performed By: #### ERICK Jacques, PHOS #### [facility] [address] [place] [address] Dr. David Magana Lymphocytes/100 WBC (Bld) 7.7 % Critically low 20.5-60.0 [facility] Comment on above: Performed By: #### ERICK Jacques, PHOS #### [facility] [address] [place] [address] Dr. David Magana MANUAL DIFF REQ NO Normal [facility] Comment on above: Performed By: #### ERICK Jacques, PHOS #### [facility] [address] [place] [address] Dr. David Magana MCH (RBC) [Entitic mass] 33.2 pg Normal 25.9-34.0 [facility] Comment on above: Performed By: #### ERICK Jacques, PHOS #### [facility] [address] [place] [address] Dr. David Magana MCHC (RBC) [Mass/Vol] 32.9 g/dL Normal 29.9-35.2 [facility] Comment on above: Performed By: #### ERICK Jacques, PHOS #### [facility] [address] [place] [address] Dr. Davdi Magana MCV (RBC) [Entitic vol] 100.9 fL Critically high 80.0-94.0 [facility] Comment on above: Performed By: #### ERICK Jacques, PHOS #### [facility] [address] [place] [address] Dr. David Magana MONO # 1.0 103/ul Critically high 0.3-0.8 [facility] Comment on above: Performed By: #### ERICK Jacques, PHOS #### [facility] [address] [place] [address] Dr. David Magana Monocytes/100 WBC (Bld) 10.0 % Normal 1.7-12.0 [facility] Comment on above: Performed By: #### M Marcell BMP, PHOS #### [facility] [address] [place] [address] Dr. David Magana NEUT # 8.1 103/ul Critically high 1.4-6.5 [facility] Comment on above: Performed By: #### M Marcell BMP, PHOS #### [facility] [address] [place] [address] Dr. David Magana Neutrophils/100 WBC (Bld) 78.9 % Critically high 43.0-75.0 [facility] Comment on above: Performed By: #### ERICK Jacques, PHOS #### [facility] [address] [place] [address] Dr. David Magana Platelet mean volume (Bld) [Entitic vol] 10.8 fL Normal 9.5-13.5 [facility] Comment on above: Performed By: #### ERICK Jacques, PHOS #### [facility] [address] [place] [address] Dr. David Magana PLT 172 103/ul Normal 150-450 [facility] Comment on above: Performed By: #### ERICK Jacques, PHOS #### [facility] [address] [place] [address] Dr. David Magana RBC 4.28 106/ul Critically low 4.70-6.10 [facility] Comment on above: Performed By: #### ERICK Jacques, PHOS #### [facility] [address] [place] [address] Dr. David Magana WBC 10.3 103/ul Normal 4.0-11.0 [facility] Comment on above: Performed By: #### ERICK Jacques, PHOS #### [facility] [address] [place] [address] Dr. David Magana CULTURE URINEon 07-20-2022 CULTURE [...] F Trimethoprim/Sulfameth oxazole >=320 R F Normal [facility] Comment on above: Performed By: #### ERICK Jacques, PHOS #### [facility] [address] [place] [address] Dr. David Magana PROF 14(COMP METB)on 022 Albumin [Mass/Vol] 2.6 g/dL Critically low 3.4-5.0 [facility] Comment on above: Performed By: #### A 1C #### [facility] [address] [place] [address] Dr. David Magana Albumin/Globulin [Mass ratio] 0.9 {ratio} Normal [facility] Comment on above: Performed By: #### A 1C #### [facility] [address] [place] [address] Dr. David Magana ALP [Catalytic activity/Vol] 48 U/L Normal 46-116 [facility] Comment on above: Performed By: #### A 1C #### [facility] [address] [place] [address] Dr. David Magana ALT [Catalytic activity/Vol] 27 U/L Normal 16-63 [facility] Comment on above: Performed By: #### A 1C #### [facility] [address] [place] [address] Dr. David Magana Anion gap [Moles/Vol] 13.4 mmol/L Normal [facility] Comment on above: Performed By: #### A 1C #### [facility] [address] [place] [address] Dr. David Magana AST [Catalytic activity/Vol] 22 U/L Normal 15-37 [facility] Comment on above: Performed By: #### A 1C #### [facility] [address] [place] [address] Dr. David Magana Bilirubin [Mass/Vol] 0.5 mg/dL Normal 0.2-1.0 [facility] Comment on above: Performed By: #### A 1C #### [facility] Laboratory [address] [place] [address] Dr. David Magana Calcium [Mass/Vol] 8.3 mg/dL Critically low 8.5-10.1 [facility] Comment on above: Performed By: #### A 1C #### [facility] [address] [address] [address] David Magana Chloride [Moles/Vol] 105 mmol/L Normal 98-107 [facility] Comment on above: Performed By: #### A 1C #### [facility] [address] [address] [address] David Magana CO2 [Moles/Vol] 21.0 mmol/L Normal 21.0-32.0 [facility] Comment on above: Performed By: #### A 1C #### [facility] [address] [place] [address] Dr. David Magana Creatinine [Mass/Vol] 1.38 mg/dL Critically high 0.70-1.30 [facility] Comment on above: Performed By: #### A 1C #### [facility] [address] [place] [address] Dr. David Magana EGFR-AF AZERBAIJANI 60 mL/min/1.73m2 Normal >=60 [facility] Comment on above: Performed By: #### A 1C #### [facility] [address] [place] [address] Dr. David Magana EGFR-NON AF AZERBAIJANI 49 mL/min/1.73m2 Critically low >=60 [facility] Comment on above: Performed By: #### A 1C #### [facility] [address] [place] [address] Dr. David Magana Globulin (S) [Mass/Vol] 2.8 g/dL Normal [facility] Comment on above: Performed By: #### A 1C #### [facility] [address] [place] [address] Dr. David Magana Glucose [Mass/Vol] 156 mg/dL Critically high 74-106 T [facility] Comment on above: Performed By: #### A 1C #### [facility] [address] [place] [address] Dr. David Magana Potassium [Moles/Vol] 4.4 mmol/L Normal 3.5-5.1 [facility] Comment on above: Performed By: #### A 1C #### [facility] [address] [place] [address] Dr. David Magana Protein [Mass/Vol] 5.4 g/dL Critically low 6.4-8.2 [facility] Comment on above: Performed By: #### A 1C #### [facility] [address] [place] [address] Dr. David Magana Sodium [Moles/Vol] 135 mmol/L Critically low 136-145 [facility] Comment on above: Performed By: #### A 1C #### [facility] [address] [place] [address] Dr. David Magana Urea nitrogen [Mass/Vol] 40.0 mg/dL Critically high 7.0-18.0 [facility] Comment on above: Performed By: #### A 1C #### [facility] [address] [place] [address] Dr. David Magana Urea nitrogen/Creatinine [Mass ratio] 29.0 mg/mg Normal [facility] Comment on above: Performed By: #### A 1C #### [facility] [address] [place] [address] Dr. David Magana BNPon 07-19-2022 Natriuretic peptide B (Bld) [Mass/Vol] 95982.0 pg/mL Critically high <=1,800.0 [facility] Comment on above: Performed By: #### C VDTB #### [facility] [address] [place] [address] Dr. David Magana CBC AUTO DIFFon 07-19-2022 BASO # 0.0 103/ul Normal 0.0-0.1 [facility] Comment on above: Performed By: #### C BC #### [facility] [address] [place] [address] Dr. David Magana Basophils/100 WBC (Bld) 0.3 % Normal 0.2-2.0 [facility] Comment on above: Performed By: #### C BC #### [facility] [address] [place] [address] Dr. David Magana EO # 0.0 103/ul Normal 0.0-0.7 [facility] Comment on above: Performed By: #### C BC #### [facility] [address] [address] [address] David Magana Eosinophils/100 WBC (Bld) 0.2 % Critically low 0.9-7.0 [facility] Comment on above: Performed By: #### C BC #### [facility] [address] [address] [address] David Magana Erythrocyte distribution width (RBC) [Ratio] 13.4 % Normal 11.0-15.0 [facility] Comment on above: Performed By: #### C BC #### [facility] [address] [place] [address] Dr. David Magana Hematocrit (Bld) [Volume fraction] 43.4 % Normal 42.0-54.0 [facility] Comment on above: Performed By: #### C BC #### [facility] [address] [place] [address] Dr. David Magana Hemoglobin (Bld) [Mass/Vol] 14.6 g/dL Normal 14.0-18.0 [facility] Comment on above: Performed By: #### C BC #### [facility] [address] [place] [address] Dr. David Magana IG # 0.18 10e3/ul Critically high 0.00-0.03 [facility] Comment on above: Performed By: #### C BC #### [facility] [address] [place] [address] Dr. David Magana IG % 1.5 % Critically high 0.0-0.5 [facility] Comment on above: Performed By: #### C BC #### [facility] [address] [place] [address] Dr. David Magana LYMPH # 0.8 103/ul Critically low 1.2-3.8 [facility] Comment on above: Performed By: #### C BC #### [facility] [address] [place] [address] Dr. David Magana Lymphocytes/100 WBC (Bld) 6.6 % Critically low 20.5-60.0 [facility] Comment on above: Performed By: #### C BC #### [facility] [address] [place] [address] Dr. David Magana MANUAL DIFF REQ NO Normal [facility] Comment on above: Performed By: #### C BC #### [facility] [address] [place] [address] Dr. David Magana MCH (RBC) [Entitic mass] 33.7 pg Normal 25.9-34.0 [facility] Comment on above: Performed By: #### C BC #### [facility] [address] [place] [address] Dr. David Magana MCHC (RBC) [Mass/Vol] 33.6 g/dL Normal 29.9-35.2 [facility] Comment on above: Performed By: #### C BC #### [facility] [address] [place] [address] Dr. David Magana MCV (RBC) [Entitic vol] 100.2 fL Critically high 80.0-94.0 [facility] Comment on above: Performed By: #### C BC #### [facility] [address] [place] [address] Dr. David Magana MONO # 1.1 103/ul Critically high 0.3-0.8 [facility] Comment on above: Performed By: #### C BC #### [facility] [address] [place] [address] Dr. David Magana Monocytes/100 WBC (Bld) 9.3 % Normal 1.7-12.0 [facility] Comment on above: Performed By: #### C BC #### [facility] [address] [place] [address] Dr. David Magana NEUT # 9.6 103/ul Critically high 1.4-6.5 [facility] Comment on above: Performed By: #### C BC #### [facility] [address] [place] [address] Dr. David Magana Neutrophils/100 WBC (Bld) 82.1 % Critically high 43.0-75.0 [facility] Comment on above: Performed By: #### C BC #### [facility] [address] [place] [address] Dr. David Magana Platelet mean volume (Bld) [Entitic vol] 10.8 fL Normal 9.5-13.5 [facility] Comment on above: Performed By: #### C BC #### [facility] [address] [address] [address] David Magana PLT 202 103/ul Normal 150-450 [facility] Comment on above: Performed By: #### C BC #### [facility] [address] [place] [address] Dr. David Magana RBC 4.33 106/ul Critically low 4.70-6.10 [facility] Comment on above: Performed By: #### C BC #### [facility] [address] [place] [address] Dr. David Magana WBC 11.7 103/ul Critically high 4.0-11.0 [facility] Comment on above: Performed By: #### C BC #### [facility] [address] [place] [address] Dr. David Magana PROF 14(COMP METB)on 022 Albumin [Mass/Vol] 3.4 g/dL Normal 3.4-5.0 [facility] Comment on above: Performed By: #### A 1C #### [facility] [address] [place] [address] Dr. David Magana Albumin/Globulin [Mass ratio] 1.1 {ratio} Normal [facility] Comment on above: Performed By: #### A 1C #### [facility] [address] [place] [address] Dr. David Magana ALP [Catalytic activity/Vol] 63 U/L Normal 46-116 [facility] Comment on above: Performed By: #### A 1C #### [facility] [address] [place] [address] Dr. David Magana ALT [Catalytic activity/Vol] 34 U/L Normal 16-63 [facility] Comment on above: Performed By: #### A 1C #### [facility] [address] [address] [address] David Magana Anion gap [Moles/Vol] 20.9 mmol/L Normal [facility] Comment on above: Performed By: #### A 1C #### [facility] [address] [place] [address] Dr. David Magana AST [Catalytic activity/Vol] 18 U/L Normal 15-37 [facility] Comment on above: Performed By: #### A 1C #### [facility] [address] [place] [address] Dr. David Magana Bilirubin [Mass/Vol] 0.5 mg/dL Normal 0.2-1.0 [facility] Comment on above: Performed By: #### A 1C #### [facility] [address] [place] [address] Dr. David Magana Calcium [Mass/Vol] 8.5 mg/dL Normal 8.5-10.1 [facility] Comment on above: Performed By: #### A 1C #### [facility] [address] [place] [address] Dr. David Magana Chloride [Moles/Vol] 99 mmol/L Normal 98-107 [facility] Comment on above: Performed By: #### A 1C #### [facility] [address] [place] [address] Dr. David Magana CO2 [Moles/Vol] 19.1 mmol/L Critically low 21.0-32.0 [facility] Comment on above: Performed By: #### A 1C #### [facility] [address] [place] [address] Dr. David Magnaa Creatinine [Mass/Vol] 1.80 mg/dL Critically high 0.70-1.30 [facility] Comment on above: Performed By: #### A 1C #### [facility] [address] [place] [address] Dr. David Magana EGFR-AF AZERBAIJANI 44 mL/min/1.73m2 Critically low >=60 [facility] Comment on above: Performed By: #### A 1C #### [facility] [address] [place] [address] Dr. David Magana EGFR-NON AF AZERBAIJANI 36 mL/min/1.73m2 Critically low >=60 [facility] Comment on above: Performed By: #### A 1C #### [facility] [address] [place] [address] Dr. David Magana Globulin (S) [Mass/Vol] 3.2 g/dL Normal [facility] Comment on above: Performed By: #### A 1C #### [facility] [address] [address] [address] David Magana Glucose [Mass/Vol] 287 mg/dL Critically high 74-106 T [facility] Comment on above: Performed By: #### A 1C #### [facility] [address] [place] [address] Dr. David Magana Potassium [Moles/Vol] 5.0 mmol/L Normal 3.5-5.1 [facility] Comment on above: Performed By: #### A 1C #### [facility] [address] [place] [address] Dr. David Magana Protein [Mass/Vol] 6.6 g/dL Normal 6.4-8.2 [facility] Comment on above: Performed By: #### A 1C #### [facility] [address] [place] [address] Dr. David Magana Sodium [Moles/Vol] 134 mmol/L Critically low 136-145 [facility] Comment on above: Performed By: #### A 1C #### [facility] [address] [place] [address] Dr. David Magana Urea nitrogen [Mass/Vol] 51.0 mg/dL Critically high 7.0-18.0 [facility] Comment on above: Performed By: #### A 1C #### [facility] [address] [place] [address] Dr. David Magana Urea nitrogen/Creatinine [Mass ratio] 28.3 mg/mg Normal [facility] Comment on above: Performed By: #### A 1C #### [facility] [address] [place] [address] Dr. David Magana [facility] 02 MODE NASAL CANNULA Normal [facility] Comment on above: Performed By: #### A 1C #### [facility] [address] [place] [address] Dr. David Magana ALLENS TEST Positive [facility] Comment on above: Performed By: #### A 1C #### [facility] [address] [place] [address] Dr. David Magana Base excess Calc (Bld) [Moles/Vol] -9.0000 mmol/L Critically low -2.0-2.0 [facility] Comment on above: Performed By: #### A 1C #### [facility] [address] [place] [address] Dr. David Magana BIPAP PRESSURE [facility] Comment on above: Performed By: #### A 1C #### [facility] [address] [place] [address] Dr. David Magana CPAP [facility] Comment on above: Performed By: #### A 1C #### [facility] [address] [place] [address] Dr. David Magana FIO2 [facility] Comment on above: Performed By: #### A 1C #### [facility] [address] [place] [address] Dr. David Magana HCO3 (Bld) [Moles/Vol] 18.4 mmol/L Critically low 22.0-26.0 [facility] Comment on above: Performed By: #### A 1C #### [facility] [address] [place] [address] Dr. David Magana LPM 1.5 [facility] Comment on above: Performed By: #### A 1C #### [facility] [address] [place] [address] Dr. David Magana MINUTE VOLUME Normal [facility] Comment on above: Performed By: #### A 1C #### [facility] [address] [place] [address] Dr. David Magana Oxygen (Bld) [Partial pressure] 69.5 mm[Hg] Critically low 80.0-100.0 [facility] Comment on above: Performed By: #### A 1C #### [facility] [address] [place] [address] Dr. David Magana Oxygen saturation in Blood 94.2 % Critically low 95.0-100.0 [facility] Comment on above: Performed By: #### A 1C #### [facility] [address] [place] [address] Dr. David Magana PCO2 29.6 mmHg Critically low 35.0-45.0 [facility] Comment on above: Performed By: #### A 1C #### [facility] [address] [place] [address] Dr. David Magana [facility] Comment on above: Performed By: #### A 1C #### [facility] [address] [place] [address] Dr. David Magana pH (Bld) 7.355 [pH] Normal 7.350-7.450 [facility] Comment on above: Performed By: #### A 1C #### [facility] [address] [place] [address] Dr. David Magana [facility] Comment on above: Performed By: #### A 1C #### [facility] [address] [place] [address] Dr. David Magana [facility] Comment on above: Performed By: #### A 1C #### [facility] [address] [place] [address] Dr. David Magana PUNCTURE SITE LR [facility] Comment on above: Performed By: #### A 1C #### [facility] [address] [place] [address] Dr. David Magana RATE [facility] Comment on above: Performed By: #### A 1C #### [facility] [address] [place] [address] Dr. David Magana VENT MODE [facility] Comment on above: Performed By: #### A 1C #### [facility] [address] [place] [address] Dr. David Magana [facility] Comment on above: Performed By: #### A 1C #### [facility] [address] [place] [address] Dr. David Magana BNPon 07-18-2022 Natriuretic peptide B (Bld) [Mass/Vol] 7047.0 pg/mL Critically high <=1,800.0 [facility] Comment on above: Performed By: #### C VDTBH #### [facility] [address] [place] [address] Dr. David Magana CARDIAC BARRIE 3-6on 2 CK [Catalytic activity/Vol] 396 U/L Critically high 39-308 [facility] Comment on above: Performed By: #### M ERICK Faith, PHOS #### [facility] [address] [place] [address] Dr. David Magana CK.MB [Mass/Vol] 2.94 ng/mL Normal <=3.60 [facility] Comment on above: Performed By: #### ERICK Jacques, PHOS #### [facility] [address] [place] [address] Dr. David Magana HSTROP 11.1 pg/mL Normal 4.0-76.1 [facility] Comment on above: Result Comment: CUT- OFF POINTS HAVE BEEN ESTABLISHED BASED ON THE FOURTH UNIVERSAL DEFINITIONS OF MYOCARDIAL INFARCTION. THE UPPER REFERENCE LIMIT (URL) OF TROPONIN, DEFINED THE 99TH PERCENTILE OF cTnI DISTRIBUTION IN A REFERENCE POPULATION, HAS BEEN CONFIRMED THE DECISION THRESHOLD FOR [place] DIAGNOSIS. Performed By: #### ERICK Jacques, PHOS #### [facility] [address] [place] [address] Dr. David Magana CK [Catalytic activity/Vol] 58 U/L Normal 39-308 [facility] Comment on above: Performed By: #### M ERICK Faith, PHOS #### [facility] [address] [place] [address] Dr. David Magana CK.MB [Mass/Vol] 1.71 ng/mL Normal <=3.60 [facility] Comment on above: Performed By: #### ERICK Jacques, PHOS #### [facility] [address] [address] [address] David Magana HSTROP 10.6 pg/mL Normal 4.0-76.1 [facility] Comment on above: Result Comment: CUT- OFF POINTS HAVE BEEN ESTABLISHED BASED ON THE FOURTH UNIVERSAL DEFINITIONS OF MYOCARDIAL INFARCTION. THE UPPER REFERENCE LIMIT (URL) OF TROPONIN, DEFINED THE 99TH PERCENTILE OF cTnI DISTRIBUTION IN A REFERENCE POPULATION, HAS BEEN CONFIRMED THE DECISION THRESHOLD FOR [place] DIAGNOSIS. Performed By: #### M G BMP, PHOS #### [facility] [address] [address] [address] David Magana CBC AUTO DIFFon 07-18-2022 BASO # 0.0 103/ul Normal 0.0-0.1 [facility] Comment on above: Performed By: #### M Marcell BMP, PHOS #### [facility] [address] [place] [address] Dr. David Magana Basophils/100 WBC (Bld) 0.2 % Normal 0.2-2.0 [facility] Comment on above: Performed By: #### M G BMP, PHOS #### [facility] [address] [address] [address] David Magana EO # 0.0 103/ul Normal 0.0-0.7 [facility] Comment on above: Performed By: #### M G BMP, PHOS #### [facility] [address] [address] [address] David Magana Eosinophils/100 WBC (Bld) 0.2 % Critically low 0.9-7.0 [facility] Comment on above: Performed By: #### M G, BMP, PHOS #### [facility] [address] [address] [address] David Magana Erythrocyte distribution width (RBC) [Ratio] 13.2 % Normal 11.0-15.0 [facility] Comment on above: Performed By: #### M G, BMP, PHOS #### [facility] [address] [address] [address] David Magana Hematocrit (Bld) [Volume fraction] 43.8 % Normal 42.0-54.0 [facility] Comment on above: Performed By: #### M ERICK Faith, PHOS #### [facility] [address] [place] [address] Dr. David Magana Hemoglobin (Bld) [Mass/Vol] 14.5 g/dL Normal 14.0-18.0 [facility] Comment on above: Performed By: #### ERICK Jacques, PHOS #### [facility] [address] [place] [address] Dr. David Magana IG # 0.15 10e3/ul Critically high 0.00-0.03 [facility] Comment on above: Performed By: #### ERICK Jacques, PHOS #### [facility] [address] [place] [address] Dr. David Magana IG % 1.3 % Critically high 0.0-0.5 [facility] Comment on above: Performed By: #### ERICK Jacques, PHOS #### [facility] [address] [place] [address] Dr. David Magana LYMPH # 0.5 103/ul Critically low 1.2-3.8 [facility] Comment on above: Performed By: #### ERICK Jacques, PHOS #### [facility] [address] [place] [address] Dr. David Magana Lymphocytes/100 WBC (Bld) 3.8 % Critically low 20.5-60.0 [facility] Comment on above: Performed By: #### ERICK Jacques, PHOS #### [facility] [address] [place] [address] Dr. David Magana MANUAL DIFF REQ NO Normal [facility] Comment on above: Performed By: #### ERICK Jacques, PHOS #### [facility] [address] [place] [address] Dr. David Magana MCH (RBC) [Entitic mass] 32.7 pg Normal 25.9-34.0 [facility] Comment on above: Performed By: #### ERICK Jacques, PHOS #### [facility] [address] [place] [address] Dr. David Maagna MCHC (RBC) [Mass/Vol] 33.1 g/dL Normal 29.9-35.2 [facility] Comment on above: Performed By: #### M G, BMP, PHOS #### [facility] [address] [place] [address] Dr. David Magana MCV (RBC) [Entitic vol] 98.9 fL Critically high 80.0-94.0 [facility] Comment on above: Performed By: #### M G, BMP, PHOS #### [facility] [address] [place] [address] Dr. David Magana MONO # 0.7 103/ul Normal 0.3-0.8 [facility] Comment on above: Performed By: #### M G, BMP, PHOS #### [facility] [address] [place] [address] Dr. David Magana Monocytes/100 WBC (Bld) 5.7 % Normal 1.7-12.0 [facility] Comment on above: Performed By: #### M G, BMP, PHOS #### [facility] [address] [place] [address] Dr. David Magana NEUT # 10.4 103/ul Critically high 1.4-6.5 [facility] Comment on above: Performed By: #### M G, BMP, PHOS #### [facility] [address] [place] [address] Dr. David Magana Neutrophils/100 WBC (Bld) 88.8 % Critically high 43.0-75.0 [facility] Comment on above: Performed By: #### M G, BMP, PHOS #### [facility] [address] [place] [address] Dr. David Magana Platelet mean volume (Bld) [Entitic vol] 11.0 fL Normal 9.5-13.5 [facility] Comment on above: Performed By: #### M G, BMP, PHOS #### [facility] [address] [place] [address] Dr. David Magana PLT 198 103/ul Normal 150-450 [facility] Comment on above: Performed By: #### M ERICK Faith, PHOS #### [facility] [address] [place], [place] [address] Dr. David Magana RBC 4.43 106/ul Critically low 4.70-6.10 [facility] Comment on above: Performed By: #### M ERICK Faith, PHOS #### [facility] [address] [place], [place] [address] Dr. David Magana WBC 11.8 103/ul Critically high 4.0-11.0 [facility] Comment on above: Performed By: #### M ERICK Faith, PHOS #### [facility] [address] [place], [place] [address] HEAD WO CONon [...] FRANCISCO ZELAYA Date: 2022-07-18 05:12 Normal [facility] Covid-19 PCR (CVDTBH)on SARS-CoV-2 (COVID-19) RNA SULTANA+probe Ql (Unsp spec) Detected Critically abnormal NOT DETECTED [facility] Comment on above: Result Comment: This test is not yet approved or cleared by the [place] FDA. When there are no FDA-approved or cleared tests available, and other criteria are met, FDA can make tests available under an emergency access mechanism called an Emergency Use Authorization (EUA). The EUA for this test is supported by the Outside Sales Consultant of Health and Human Service's declaration [...] used). Performed By: #### C VDTBH #### [facility] [address] [place] [address] Dr. David Magana D-DIMERon 07-18-2022 D-DIMER 1.69 mg/L FEU Critically high <=0.59 [facility] Comment on above: Performed By: #### C BC #### [facility] [address] [place] [address] Dr. David Magana D-DIMER COMMENTS SEE BELOW Normal [facility] Comment on above: Result Comment: [...] hospitalization. Performed By: #### C BC #### [facility] [address] [place] [address] Dr. David Magana POINT OF CARE GLUCOSEon Glucose [Mass/Vol] 329 mg/dL Critically high 74-106 [facility] Comment on above: Performed By: #### P OCGLUC #### [facility] [address] [place] [address] Dr. David Magana Glucose [Mass/Vol] 354 mg/dL Critically high 74-106 [facility] [facility] Comment on above: Performed By: #### P OCGLUC #### [facility] [address] [place] [address] Dr. David Magana PROF 14(COMP METB)on 022 Albumin [Mass/Vol] 3.6 g/dL Normal 3.4-5.0 [facility] Comment on above: Performed By: #### C VDTBH #### [facility] [address] [place] [address] Dr. David Magana Albumin/Globulin [Mass ratio] 1.1 {ratio} Normal [facility] Comment on above: Performed By: #### C VDTBH #### [facility] [address] [address] [address] David Magana ALP [Catalytic activity/Vol] 67 U/L Normal 46-116 [facility] Comment on above: Performed By: #### C VDTBH #### [facility] [address] [place] [address] Dr. David Magana ALT [Catalytic activity/Vol] 33 U/L Normal 16-63 [facility] Comment on above: Performed By: #### C VDTBH #### [facility] [address] [place] [address] Dr. David Magana Anion gap [Moles/Vol] 23.5 mmol/L Normal [facility] Comment on above: Performed By: #### C VDTBH #### [facility] [address] [place] [address] Dr. David Magana AST [Catalytic activity/Vol] 13 U/L Critically low 15-37 [facility] Comment on above: Performed By: #### C VDTBH #### [facility] [address] [place] [address] Dr. David Magana Bilirubin [Mass/Vol] 0.6 mg/dL Normal 0.2-1.0 [facility] Comment on above: Performed By: #### C VDTBH #### [facility] [address] [place] [address] Dr. David Magana Calcium [Mass/Vol] 8.4 mg/dL Critically low 8.5-10.1 [facility] Comment on above: Performed By: #### C VDTBH #### [facility] [address] [place] [address] Dr. David Magana Chloride [Moles/Vol] 93 mmol/L Critically low 98-107 [facility] Comment on above: Performed By: #### C VDTBH #### [facility] [address] [place] [address] Dr. David Magana CO2 [Moles/Vol] 17.9 mmol/L Critically low 21.0-32.0 [facility] Comment on above: Performed By: #### C VDTBH #### [facility] [address] [place] [address] Dr. David Magana Creatinine [Mass/Vol] 2.15 mg/dL Critically high 0.70-1.30 [facility] Comment on above: Performed By: #### C VDTBH #### [facility] [address] [place] [address] Dr. David Magnaa EGFR-AF AZERBAIJANI 36 mL/min/1.73m2 Critically low >=60 [facility] Comment on above: Performed By: #### C VDTBH #### [facility] [address] [place] [address] Dr. David Magana EGFR-NON AF AZERBAIJANI 30 mL/min/1.73m2 Critically low >=60 [facility] Comment on above: Performed By: #### C VDTBH #### [facility] [address] [place] [address] Dr. David Magana Globulin (S) [Mass/Vol] 3.2 g/dL Normal [facility] Comment on above: Performed By: #### C VDTBH #### [facility] [address] [place] [address] Dr. David Magana Glucose [Mass/Vol] 345 mg/dL Critically high 74-106 [facility] Comment on above: Performed By: #### C VDTBH #### [facility] [address] [place] [address] Dr. David Magana Potassium [Moles/Vol] 5.4 mmol/L Critically high 3.5-5.1 [facility] Comment on above: Performed By: #### C VDTBH #### [facility] [address] [place] [address] Dr. David Magana Performed By: #### K #### [facility] [address] [place] [address] Dr. David Magana Protein [Mass/Vol] 6.8 g/dL Normal 6.4-8.2 [facility] Comment on above: Performed By: #### C VDTBH #### [facility] [address] [place] [address] Dr. David Magana Sodium [Moles/Vol] 129 mmol/L Critically low 136-145 [facility] Comment on above: Performed By: #### C VDTBH #### [facility] [address] [place] [address] Dr. David Magana Urea nitrogen [Mass/Vol] 65.0 mg/dL Critically high 7.0-18.0 [facility] Comment on above: Performed By: #### C VDTBH #### [facility] [address] [place] [address] Dr. David Magana Urea nitrogen/Creatinine [Mass ratio] 30.2 mg/mg Normal [facility] Comment on above: Performed By: #### C VDTBH #### [facility] [address] [place] [address] Dr. David Magana UA RANDOM W/MICROSCOPICon BACTERIA NONE SEEN Normal NONE SEEN [facility] Comment on above: Performed By: #### M G, BMP, PHOS #### [facility] [address] [place] [address] Dr. David Magana Bilirubin Ql (U) Negative Normal NEGATIVE [facility] Comment on above: Performed By: #### M G, BMP, PHOS #### [facility] [address] [place] [address] Dr. David Magana CAST NONE SEEN Normal NONE SEEN [facility] Comment on above: Performed By: #### M G, BMP, PHOS #### [facility] [address] [place] [address] Dr. David Magana Clarity (U) CLEAR Normal CLEAR [facility] Comment on above: Performed By: #### M G, BMP, PHOS #### [facility] [address] [address] [address] David Magana Color (U) LT. YELLOW Normal YELLOW [facility] Comment on above: Performed By: #### M G, BMP, PHOS #### [facility] [address] [address] [address] David Magana Crystals LM Nom (Urine sed) NONE SEEN Normal NONE SEEN [facility] Comment on above: Performed By: #### M G, BMP, PHOS #### [facility] [address] [address] [address] David Magana Epithelial cells LM Ql (Urine sed) RARE Normal NONE SEEN /RARE [facility] Comment on above: Performed By: #### M Marcell, BMP, PHOS #### [facility] [address] [place] [address] Dr. David Magana Glucose Ql (U) 1000 mg/dl Abnormal NEGATIVE [facility] Comment on above: Performed By: #### M Marcell, BMP, PHOS #### [facility] [address] [address] [address] David Magana Hemoglobin Ql (U) Negative Normal NEGATIVE [facility] Comment on above: Performed By: #### M G, BMP, PHOS #### [facility] [address] [place] [address] Dr. David Magana Ketones Ql (U) 15 mg/dl Abnormal NEGATIVE [facility] Comment on above: Performed By: #### M Marcell, BMP, PHOS #### [facility] [address] [place] [address] Dr. David Magana LEUKOCYTES Negative Normal NEGATIVE [facility] Comment on above: Performed By: #### M G, BMP, PHOS #### [facility] [address] [place] [address] Dr. David Magana MUCOUS NONE SEEN Normal NONE SEEN [facility] Comment on above: Performed By: #### M G, BMP, PHOS #### [facility] [address] [address] [address] David Magana Nitrite Ql (U) Negative Normal NEGATIVE [facility] Comment on above: Performed By: #### M G, BMP, PHOS #### [facility] [address] [place] [address] Dr. David Magana pH (U) 5.5 [pH] Normal 5-9 [facility] Comment on above: Performed By: #### M G, BMP, PHOS #### [facility] [address] [place] [address] Dr. David Magana RBC NONE SEEN Abnormal 0-2 [facility] Comment on above: Performed By: #### M G, BMP, PHOS #### [facility] [address] [place] [address] Dr. David Magana SPEC GRAVITY <=1.005 Abnormal 1.005-<=1.02 5 [facility] Comment on above: Performed By: #### M G, BMP, PHOS #### [facility] [address] [place] [address] Dr. David Magana UA PROTEIN Negative Normal NEGATIVE/ TRACE [facility] Comment on above: Performed By: #### M G, BMP, PHOS #### [facility] [address] [place] [address] Dr. David Magana Urobilinogen Qn (U) 0.2 {Dionna'U}/dL Normal 0.2 - 1. 0 [facility] Comment on above: Performed By: #### M G, BMP, PHOS #### [facility] [address] [place] [address] Dr. David Magana WBC NONE SEEN Normal NONE SEEN [facility] Comment on above: Performed By: #### M G, BMP, PHOS #### [facility] [address] [place] [address] Dr. David Magana XR CHEST 1 Von [...] Yefri DWYER Date: 2022-07-18 00:09 Normal [facility] CARDIAC BARRIE ADMITon 022 CK [Catalytic activity/Vol] 61 U/L Normal 39-308 [facility] Comment on above: Performed By: #### C BC #### [facility] [address] [address] [address] David Magana CK.MB [Mass/Vol] 1.84 ng/mL Normal <=3.60 [facility] Comment on above: Performed By: #### C BC #### [facility] [address] [place] [address] Dr. David Magana HSTROP 9.4 pg/mL Normal 4.0-76.1 [facility] Comment on above: Result Comment: CUT- OFF POINTS HAVE BEEN ESTABLISHED BASED ON THE FOURTH UNIVERSAL DEFINITIONS OF MYOCARDIAL INFARCTION. THE UPPER REFERENCE LIMIT (URL) OF TROPONIN, DEFINED THE 99TH PERCENTILE OF cTnI DISTRIBUTION IN A REFERENCE POPULATION, HAS BEEN CONFIRMED THE DECISION THRESHOLD FOR NV DIAGNOSIS. Performed By: #### C BC #### [facility] [address] [address] [address] David Magana DUSTIN 533 ng/mL Critically high 16-96 [facility] Comment on above: Performed By: #### C BC #### [facility] [address] [address] [address] David Magana CBC AUTO DIFFon 07-17-2022 BASO # 0.0 103/ul Normal 0.0-0.1 [facility] Comment on above: Performed By: #### M G, BMP, PHOS #### [facility] [address] [address] [address] David Magana Basophils/100 WBC (Bld) 0.2 % Normal 0.2-2.0 [facility] Comment on above: Performed By: #### M G, BMP, PHOS #### [facility] [address] [address] [address] David Magana EO # 0.0 103/ul Normal 0.0-0.7 [facility] Comment on above: Performed By: #### M ERICK Faith, PHOS #### [facility] [address] [place] [address] Dr. David Magana Eosinophils/100 WBC (Bld) 0.1 % Critically low 0.9-7.0 [facility] Comment on above: Performed By: #### ERICK Jacques, PHOS #### [facility] [address] [place] [address] Dr. David Magana Erythrocyte distribution width (RBC) [Ratio] 13.2 % Normal 11.0-15.0 [facility] Comment on above: Performed By: #### ERICK Jacques, PHOS #### [facility] [address] [place] [address] Dr. David Magana Hematocrit (Bld) [Volume fraction] 43.1 % Normal 42.0-54.0 [facility] Comment on above: Performed By: #### ERICK Jacques, PHOS #### [facility] [address] [place] [address] Dr. David Magana Hemoglobin (Bld) [Mass/Vol] 14.5 g/dL Normal 14.0-18.0 [facility] Comment on above: Performed By: #### ERICK Jacques, PHOS #### [facility] [address] [place] [address] Dr. David Magana IG # 0.14 10e3/ul Critically high 0.00-0.03 [facility] Comment on above: Performed By: #### ERICK Jacques, PHOS #### [facility] [address] [place] [address] Dr. David Magana IG % 1.2 % Critically high 0.0-0.5 [facility] Comment on above: Performed By: #### M ERICK Faith, PHOS #### [facility] [address] [place] [address] Dr. David Magana LYMPH # 0.4 103/ul Critically low 1.2-3.8 [facility] Comment on above: Performed By: #### M REICK Faith, PHOS #### [facility] [address] [place] [address] Dr. David Magana Lymphocytes/100 WBC (Bld) 3.4 % Critically low 20.5-60.0 [facility] Comment on above: Performed By: #### M G, BMP, PHOS #### [facility] [address] [place] [address] Dr. David Magana MANUAL DIFF REQ NO Normal [facility] Comment on above: Performed By: #### M G, BMP, PHOS #### [facility] [address] [place] [address] Dr. David Magana MCH (RBC) [Entitic mass] 33.3 pg Normal 25.9-34.0 [facility] Comment on above: Performed By: #### M G, BMP, PHOS #### [facility] [address] [place] [address] Dr. David Magana MCHC (RBC) [Mass/Vol] 33.6 g/dL Normal 29.9-35.2 [facility] Comment on above: Performed By: #### M G, BMP, PHOS #### [facility] [address] [place] [address] Dr. David Magana MCV (RBC) [Entitic vol] 98.9 fL Critically high 80.0-94.0 [facility] Comment on above: Performed By: #### M G, BMP, PHOS #### [facility] [address] [place] [address] Dr. David Magana MONO # 1.1 103/ul Critically high 0.3-0.8 [facility] Comment on above: Performed By: #### M G, BMP, PHOS #### [facility] [address] [place] [address] Dr. David Magana Monocytes/100 WBC (Bld) 8.9 % Normal 1.7-12.0 [facility] Comment on above: Performed By: #### M G, BMP, PHOS #### [facility] [address] [place] [address] Dr. David Magana NEUT # 10.3 103/ul Critically high 1.4-6.5 [facility] Comment on above: Performed By: #### M ERICK Faith, PHOS #### [facility] [address] [place] [address] Dr. David Magana Neutrophils/100 WBC (Bld) 86.2 % Critically high 43.0-75.0 [facility] Comment on above: Performed By: #### ERICK Jacques, PHOS #### [facility] [address] [place] [address] Dr. David Magana Platelet mean volume (Bld) [Entitic vol] 11.1 fL Normal 9.5-13.5 [facility] Comment on above: Performed By: #### ERICK Jacques, PHOS #### [facility] [address] [place] [address] Dr. David Magana PLT 229 103/ul Normal 150-450 [facility] Comment on above: Performed By: #### ERICK Jacques, PHOS #### [facility] [address] [place] [address] Dr. David Magana RBC 4.36 106/ul Critically low 4.70-6.10 [facility] Comment on above: Performed By: #### ERICK Jacques, PHOS #### [facility] [address] [place] [address] Dr. David Magana WBC 11.9 103/ul Critically high 4.0-11.0 [facility] Comment on above: Performed By: #### ERICK Jacques, PHOS #### [facility] [address] [place] [address] Dr. David Magana PROF CHEM 8 (BAS METB)on Anion gap [Moles/Vol] 26.5 mmol/L Normal [facility] Comment on above: Performed By: #### C BC #### [facility] [address] [place] [address] Dr. David Magana Calcium [Mass/Vol] 8.2 mg/dL Critically low 8.5-10.1 [facility] Comment on above: Performed By: #### C BC #### [facility] [address] [address] [address] David Magana Chloride [Moles/Vol] 89 mmol/L Critically low 98-107 [facility] Comment on above: Performed By: #### C BC #### [facility] [address] [address] [address] David Magana CO2 [Moles/Vol] 14.5 mmol/L Critically low 21.0-32.0 [facility] Comment on above: Performed By: #### C BC #### [facility] [address] [address] [address] David Magana Creatinine [Mass/Vol] 2.78 mg/dL Critically high 0.70-1.30 [facility] Comment on above: Performed By: #### C BC #### [facility] [address] [address] [address] David Magana EGFR-AF AZERBAIJANI 27 mL/min/1.73m2 Critically low >=60 [facility] Comment on above: Performed By: #### C BC #### [facility] [address] [address] [address] David Magana EGFR-NON AF AZERBAIJANI 22 mL/min/1.73m2 Critically low >=60 [facility] Comment on above: Performed By: #### C BC #### [facility] [address] [address] [address] David Magana Glucose [Mass/Vol] 442 mg/dL Critically high 74-106 T [facility] Comment on above: Performed By: #### C BC #### [facility] [address] [address] [address] David Magana Potassium [Moles/Vol] 6.0 mmol/L Critically high 3.5-5.1 [facility] Comment on above: Performed By: #### C BC #### [facility] [address] [address] [address] David Magana Sodium [Moles/Vol] 124 mmol/L Critically low 136-145 [facility] Comment on above: Performed By: #### C BC #### [facility] [address] [place], [place] [address] Dr. David Magana Urea nitrogen [Mass/Vol] 73.0 mg/dL Critically high 7.0-18.0 [facility] Comment on above: Performed By: #### C BC #### [facility] [address] [place], [place] [address] Dr. David Magana Urea nitrogen/Creatinine [Mass ratio] 26.3 mg/mg Normal [facility] Comment on above: Performed By: #### C BC #### [facility] [address] [place], [place] [address] Dr. David Magana [facility] SARS-CoV-2 (COVID-19) RNA SULTANA+probe Ql (Unsp spec) Detected Critically abnormal NOT DETECTED [facility] Comment on above: Result Comment: This test is not yet approved or cleared by the [place] FDA. When there are no FDA-approved or cleared tests available, and other criteria are met, FDA can make tests available under an emergency access mechanism called an Emergency Use Authorization (EUA). The EUA for this test is supported by the Outside [employer] of Health and Human Service's (HHS's) [...] By: #### M G, BMP, PHOS #### [facility] [id number] David Magana ECHOCARDIO M/2D COMPLETEon 0 07-01-2022 ECHOCARDIO M/2D COMPLETE Patient: NADIR BETH Exam Date: 07/01/2022 : 1940 Gender:M Ordering : DR CLARIBEL CISNEROS M.D. Admission #: [id number] Family : DR VAN YOUSSEF . Order #: [id number] CLICK HERE TO VIEW EXAM ECHOCARDIOGRAM REPORT [...] M.D. on 07/01/2022 at 16:27 Normal [facility] Covid-19 PCR ([facility])on SARS-CoV-2 (COVID-19) RNA SULTANA+probe Ql (Unsp spec) Not detected Normal NOT DETECTED [facility] Comment on above: Result Comment: When [...] for this test is supported by the [employer] of Health and Human Service's declaration that [...] used). Performed By: #### C VDTB #### [facility] [address] [place] [address] Dr. David Magana CREATININE URINEon 2 URINE CREAT 14.70 mg/dL Critically low 20.00-300.00 [facility] Comment on above: Performed By: #### M ERICK Faith, PHOS #### [facility] [address] [place] [address] Dr. David Magana GLYCOHEMOGLOBIN A1Con 2021 ADA RECOMMENDATION SEE BELOW Normal [facility] Comment on above: Result Comment: ADA RECOMMENDED LIMIT 4.0 - 6.0 ADA THERAPEUTIC TARGET < 7.0 ACTION SUGGESTED > 7.0 Performed By: #### A 1C #### [facility] [address] [place] [address] Dr. David Magana Glucose [Mass/Vol] 209 mg/dL Normal [facility] Comment on above: Performed By: #### A 1C #### [facility] [address] [place] [address] Dr. David Magana HbA1c (Bld) [Mass fraction] 8.9 % Critically high 4.5-6.2 [facility] Comment on above: Performed By: #### A 1C #### [facility] [address] [place] [address] Dr. David Magana MAGNESIUMon 06-08-2022 Magnesium [Mass/Vol] 2.3 mg/dL Normal 1.8-2.4 [facility] Comment on above: Performed By: #### M ERICK Faith, PHOS #### [facility] [address] [place] [address] Dr. David Magana PHOSPHORUSon 06-08-2022 Phosphate [Mass/Vol] 3.5 mg/dL Normal 2.6-4.7 [facility] Comment on above: Performed By: #### ERICK Jacques, PHOS #### [facility] [address] [place] [address] Dr. David Magana PROF CHEM 8 (BAS METB)on Anion gap [Moles/Vol] 10.6 mmol/L Normal [facility] Comment on above: Performed By: #### M G, BMP, PHOS #### [facility] [address] [address] [address] David Magana Calcium [Mass/Vol] 9.2 mg/dL Normal 8.5-10.1 [facility] Comment on above: Performed By: #### M G, BMP, PHOS #### [facility] [address] [address] [address] David Magana Chloride [Moles/Vol] 102 mmol/L Normal 98-107 [facility] Comment on above: Performed By: #### M Marcell, BMP, PHOS #### [facility] [address] [address] [address] David Magana CO2 [Moles/Vol] 30.1 mmol/L Normal 21.0-32.0 [facility] Comment on above: Performed By: #### M Marcell, BMP, PHOS #### [facility] [address] [address] [address] David Magana Creatinine [Mass/Vol] 1.70 mg/dL Critically high 0.70-1.30 [facility] Comment on above: Performed By: #### M G, BMP, PHOS #### [facility] [address] [address] [address] David Magana EGFR-AF AZERBAIJANI 47 mL/min/1.73m2 Critically low >=60 [facility] Comment on above: Performed By: #### M G, BMP, PHOS #### [facility] [address] [address] [address] David Magana EGFR-NON AF AZERBAIJANI 39 mL/min/1.73m2 Critically low >=60 [facility] Comment on above: Performed By: #### M G, BMP, PHOS #### [facility] [address] [address] [address] David Magana Glucose [Mass/Vol] 197 mg/dL Critically high 74-106 [facility] Comment on above: Performed By: #### M ERICK Faith, PHOS #### [facility] [address] [place] [address] Dr. David Magana Potassium [Moles/Vol] 4.7 mmol/L Normal 3.5-5.1 [facility] Comment on above: Performed By: #### M Marcell BMP, PHOS #### [facility] [address] [place] [address] Dr. David Magana Sodium [Moles/Vol] 138 mmol/L Normal 136-145 [facility] Comment on above: Performed By: #### M ERICK Faith, PHOS #### [facility] [address] [place] [address] Dr. David Magana Urea nitrogen [Mass/Vol] 25.0 mg/dL Critically high 7.0-18.0 [facility] Comment on above: Performed By: #### ERICK Jacques, PHOS #### [facility] [address] [place] [address] Dr. David Magana Urea nitrogen/Creatinine [Mass ratio] 14.7 mg/mg Normal [facility] Comment on above: Performed By: #### M ERICK Faith, PHOS #### [facility] [address] [place] [address] Dr. David Magana PROTEIN RAND URINEon 022 UR PROT <5.0 Normal <=11.9 [facility] Comment on above: Performed By: #### C REAU, PROTU #### [facility] [address] [place] [address] Dr. David Magana BILIRUBIN CONJUGATED (DIRECT )on 04-28-2022 BILI, CONJUGATED 0.1 mg/dL Normal 0.0-0.2 [facility] Comment on above: Performed By: #### P OCGLUC #### [facility] [address] [place] [address] Dr. David Magana CBC AUTO DIFFon 04-28-2022 BASO # 0.1 103/ul Normal 0.0-0.1 [facility] Comment on above: Performed By: #### C VDTBH #### [facility] [address] [place] [address] Dr. David Magana Basophils/100 WBC (Bld) 0.7 % Normal 0.2-2.0 [facility] Comment on above: Performed By: #### C VDTBH #### [facility] [address] [place] [address] Dr. David Magana EO # 0.5 103/ul Normal 0.0-0.7 [facility] Comment on above: Performed By: #### C VDTBH #### [facility] [address] [place] [address] Dr. David Magana Eosinophils/100 WBC (Bld) 6.7 % Normal 0.9-7.0 [facility] Comment on above: Performed By: #### C VDTBH #### [facility] [address] [place] [address] Dr. David Magana Erythrocyte distribution width (RBC) [Ratio] 13.6 % Normal 11.0-15.0 [facility] Comment on above: Performed By: #### C VDTBH #### [facility] [address] [place] [address] Dr. David Magana Hematocrit (Bld) [Volume fraction] 45.9 % Normal 42.0-54.0 [facility] Comment on above: Performed By: #### C VDTBH #### [facility] [address] [place] [address] Dr. David Magana Hemoglobin (Bld) [Mass/Vol] 14.9 g/dL Normal 14.0-18.0 [facility] Comment on above: Performed By: #### C VDTBH #### [facility] [address] [place] [address] Dr. David Magana IG # 0.03 10e3/ul Normal 0.00-0.03 [facility] Comment on above: Performed By: #### C VDTBH #### [facility] [address] [place] [address] Dr. David Magana IG % 0.4 % Normal 0.0-0.5 [facility] Comment on above: Performed By: #### C VDTBH #### [facility] [address] [address] [address] David Magana LYMPH # 1.0 103/ul Critically low 1.2-3.8 [facility] Comment on above: Performed By: #### C VDTBH #### [facility] [address] [address] [address] David Magana Lymphocytes/100 WBC (Bld) 13.4 % Critically low 20.5-60.0 [facility] Comment on above: Performed By: #### C VDTBH #### [facility] [address] [address] [address] David Magana MANUAL DIFF REQ NO Normal [facility] Comment on above: Performed By: #### C VDTBH #### [facility] [address] [address] [address] David Magana MCH (RBC) [Entitic mass] 33.8 pg Normal 25.9-34.0 [facility] Comment on above: Performed By: #### C VDTBH #### [facility] [address] [address] [address] David Magana MCHC (RBC) [Mass/Vol] 32.5 g/dL Normal 29.9-35.2 [facility] Comment on above: Performed By: #### C VDTBH #### [facility] [address] [address] [address] David Magana MCV (RBC) [Entitic vol] 104.1 fL Critically high 80.0-94.0 [facility] Comment on above: Performed By: #### C VDTBH #### [facility] [address] [address] [address] David Magana MONO # 0.8 103/ul Normal 0.3-0.8 [facility] Comment on above: Performed By: #### C VDTBH #### [facility] [address] [address] [address] David Magana Monocytes/100 WBC (Bld) 10.2 % Normal 1.7-12.0 [facility] Comment on above: Performed By: #### C VDTBH #### [facility] [address] [address] [address] David Magana NEUT # 5.1 103/ul Normal 1.4-6.5 [facility] Comment on above: Performed By: #### C VDTBH #### [facility] [address] [address] [address] David Magana Neutrophils/100 WBC (Bld) 68.6 % Normal 43.0-75.0 [facility] Comment on above: Performed By: #### C VDTBH #### [facility] [address] [place] [address] Dr. David Magana Platelet mean volume (Bld) [Entitic vol] 11.3 fL Normal 9.5-13.5 [facility] Comment on above: Performed By: #### C VDTBH #### [facility] [address] [place] [address] Dr. David Magana PLT 185 103/ul Normal 150-450 [facility] Comment on above: Performed By: #### C VDTBH #### [facility] [address] [place] [address] Dr. David Magana RBC 4.41 106/ul Critically low 4.70-6.10 [facility] Comment on above: Performed By: #### C VDTBH #### [facility] [address] [place] [address] Dr. David Magana WBC 7.5 103/ul Normal 4.0-11.0 [facility] Comment on above: Performed By: #### C VDTBH #### [facility] [address] [address] [address] David Magana FREE T3on 04-28-2022 FREE T3 2.17 pg/mlL Critically low 2.18-3.98 [facility] Comment on above: Performed By: #### P OCGLUC #### [facility] [address] [place] [address] Dr. David Magana LIPID PROFILEon 04-28-2022 CHOL-HDL RATIO NORM SEE BELOW Normal [facility] Comment on above: Result Comment: 3.3 - 4.4 LOW RISK 4.4 - 7.1 AVERAGE RISK 7.1 - 11.0 MODERATE RISK >11.0 HIGH RISK Performed By: #### P OCGLUC #### [facility] [address] [address] [address] David Magana Cholesterol [Mass/Vol] 234 mg/dL Critically high <=200 [facility] Comment on above: Performed By: #### P OCGLUC #### [facility] [address] [address] [address] David Magana Cholesterol in HDL [Mass/Vol] 58 mg/dL Normal 40-60 [facility] Comment on above: Performed By: #### P OCGLUC #### [facility] [address] [address] [address] David Magana Cholesterol in LDL [Mass/Vol] 129.0 mg/dL Normal [facility] Comment on above: Performed By: #### P OCGLUC #### [facility] [address] [address] [address] David Magana Cholesterol.total/Cho lesterol in HDL [Mass ratio] 4.0 {ratio} Normal [facility] Comment on above: Performed By: #### P OCGLUC #### [facility] [address] [address] [address] David Magana HDL NORMAL > or = 60 mg/dl - LO W CARDIOVASCULAR RISK <40 mg/dl - HIGH CARDIOVASCULAR RISK Normal [facility] Comment on above: Performed By: #### P OCGLUC #### [facility] [address] [address] [address] David Magana LDL CALC NORMAL SEE BELOW Normal [facility] Comment on above: Result Comment: <100 mg/dl OPTIMAL 100 - 129 mg/dl NEAR OR ABOVE OPTIMAL 130 - 159 mg/dl BORDERLINE HIGH 160 - 189 mg/dl HIGH >190 mg/dl VERY HIGH Performed By: #### P OCGLUC #### [facility] [address] [address] [address] David Magana Triglyceride [Mass/Vol] 235 mg/dL Critically high <=150 [facility] Comment on above: Performed By: #### P OCGLUC #### [facility] [address] [address] [address] David Magana VLDL CALC 47.0 mg/dL Normal [facility] Comment on above: Performed By: #### P OCGLUC #### [facility] [address] [place] [address] Dr. David Magana PROF 14(COMP METB)on 022 Albumin [Mass/Vol] 3.2 g/dL Critically low 3.4-5.0 [facility] Comment on above: Performed By: #### P OCGLUC #### [facility] [address] [place] [address] Dr. David Magana Albumin/Globulin [Mass ratio] 0.9 {ratio} Normal [facility] Comment on above: Performed By: #### P OCGLUC #### [facility] [address] [place] [address] Dr. David Magana ALP [Catalytic activity/Vol] 77 U/L Normal 46-116 [facility] Comment on above: Performed By: #### P OCGLUC #### [facility] [address] [place] [address] Dr. David Magana ALT [Catalytic activity/Vol] 24 U/L Normal 16-63 [facility] Comment on above: Performed By: #### P OCGLUC #### [facility] [address] [place] [address] Dr. David Magana Anion gap [Moles/Vol] 13.1 mmol/L Normal [facility] Comment on above: Performed By: #### P OCGLUC #### [facility] [address] [address] [address] David Magana AST [Catalytic activity/Vol] 13 U/L Critically low 15-37 [facility] Comment on above: Performed By: #### P OCGLUC #### [facility] [address] [place] [address] Dr. David Magana Bilirubin [Mass/Vol] 0.3 mg/dL Normal 0.2-1.0 [facility] Comment on above: Performed By: #### P OCGLUC #### [facility] [address] [address] [address] David Magana Calcium [Mass/Vol] 8.8 mg/dL Normal 8.5-10.1 [facility] Comment on above: Performed By: #### P OCGLUC #### [facility] [address] [address] [address] David Magana Chloride [Moles/Vol] 106 mmol/L Normal 98-107 [facility] Comment on above: Performed By: #### P OCGLUC #### [facility] [address] [address] [address] David Magana CO2 [Moles/Vol] 27.5 mmol/L Normal 21.0-32.0 [facility] Comment on above: Performed By: #### P OCGLUC #### [facility] [address] [address] [address] David Magana Creatinine [Mass/Vol] 1.62 mg/dL Critically high 0.70-1.30 [facility] Comment on above: Performed By: #### P OCGLUC #### [facility] [address] [address] [address] David Magana EGFR-AF AZERBAIJANI 50 mL/min/1.73m2 Critically low >=60 [facility] Comment on above: Performed By: #### P OCGLUC #### [facility] [address] [address] [address] David Magana EGFR-NON AF AZERBAIJANI 41 mL/min/1.73m2 Critically low >=60 [facility] Comment on above: Performed By: #### P OCGLUC #### [facility] [address] [address] [address] David Magana Globulin (S) [Mass/Vol] 3.4 g/dL Normal [facility] Comment on above: Performed By: #### P OCGLUC #### [facility] [address] [address] [address] David Magana Glucose [Mass/Vol] 206 mg/dL Critically high 74-106 [facility] Comment on above: Performed By: #### P OCGLUC #### [facility] [address] [address] [address] David Magana Potassium [Moles/Vol] 4.6 mmol/L Normal 3.5-5.1 [facility] Comment on above: Performed By: #### P OCGLUC #### [facility] [address] [address] [address] David Magana Protein [Mass/Vol] 6.6 g/dL Normal 6.4-8.2 [facility] Comment on above: Performed By: #### P OCGLUC #### [facility] [address] [address] [address] David Magana Sodium [Moles/Vol] 142 mmol/L Normal 136-145 [facility] Comment on above: Performed By: #### P OCGLUC #### [facility] [address] [address] [address] David Magana Urea nitrogen [Mass/Vol] 26.0 mg/dL Critically high 7.0-18.0 [facility] Comment on above: Performed By: #### P OCGLUC #### [facility] [address] [address] [address] David Magana Urea nitrogen/Creatinine [Mass ratio] 16.0 mg/mg Normal [facility] Comment on above: Performed By: #### P OCGLUC #### [facility] [address] [address] [address] David Magana T4on 04-28-2022 T4 [Mass/Vol] 7.70 ug/dL Normal 4.50-12.10 [facility] Comment on above: Performed By: #### P OCGLUC #### [facility] [address] [place] [address] Dr. David Magana TSHon 04-28-2022 TSH 2.187 uIU/mL Normal 0.358-3.740 [facility] Comment on above: Performed By: #### P OCGLUC #### [facility] [address] [place] [address] Dr. David Magana TSH RANGE SEE BELOW Normal [facility] Comment on above: Result Comment: <0.3 4 UIU/ml HYPERTHYROID 0.34-5.60 UIU/ml EUTHYROID >5.60 UIU/ml HYPOTHYROID Performed By: #### P OCGLUC #### [facility] [address] [address] [address] David Magana Vital Signs Date Time Vital Sign Value Performing Clinician Facility 09-14-2024 08:19-0400 Body height 182.9 cm Blaise Chicas DPM Work Phone: [facility] 09-14-2024 08:19-0400 Body mass index (BMI) [Ratio] 39.2 kg/m2 Blaise Chicas DPM Work Phone: [facility] 09-14-2024 08:19-0400 Body weight 131.09 kg Blaise Chicas DPM Work Phone: [facility] 09-14-2024 08:19-0400 Diastolic blood pressure 79 mm[Hg] Blaise Chicas DPM Work Phone: [facility] 09-14-2024 08:19-0400 Heart rate 81 /min Blaise Chicas DPM Work Phone: [facility] 09-14-2024 08:19-0400 Systolic blood pressure 128 mm[Hg] Blaise Chicas DPM Work Phone: [facility] 08-08-2024 10:25-0400 Blood Pressure Location MARQUIS NKANSAH-AMANKRA [facility] 08-08-2024 10:25-0400 Diastolic blood pressure 82 mm[Hg] MARQUIS NKANSAH-AMANKRA [facility] 08-08-2024 10:25-0400 Systolic blood pressure 140 mm[Hg] MARQUIS NKANSAH-AMANKRA [facility] 10-14-2023 14:33-0500 Diastolic blood pressure 70 mm[Hg] Nereyda Patricia [facility] 10-14-2023 14:33-0500 Mean blood pressure 93 mm[Hg] Nereyda Patricia [facility] 10-14-2023 14:33-0500 Systolic blood pressure 138 mm[Hg] Enreyda Patricia [facility] 10-14-2023 14:18-0500 Blood Pressure Location Nereyda Patricia [facility] 10-14-2023 14:18-0500 Body temperature 97.88 [degF] Nereyda Patricia [facility] 10-14-2023 14:18-0500 Diastolic blood pressure 73 mm[Hg] Nereyda Patricia [facility] 10-14-2023 14:18-0500 Heart rate 91 /min Nereyda Patricia [facility] 10-14-2023 14:18-0500 Systolic blood pressure 143 mm[Hg] Nereyda Patricia [facility] 10-01-2023 12:13-0500 Diastolic blood pressure 66 mm[Hg] Nereyda Patricia [facility] 10-01-2023 12:13-0500 Mean blood pressure 104 mm[Hg] Nereyda Patricia [facility] 10-01-2023 12:13-0500 Systolic blood pressure 179 mm[Hg] Nereyda Patricia [facility] 10-01-2023 12:10-0500 Blood Pressure Location Nereyda Patricia [facility] 10-01-2023 12:10-0500 Body temperature 98.42 [degF] Nereyda Patricia [facility] 10-01-2023 12:10-0500 Diastolic blood pressure 77 mm[Hg] Nereyda Patricia [facility] 10-01-2023 12:10-0500 Heart rate 81 /min Nereyda Patricia [facility] 10-01-2023 12:10-0500 Respiratory rate 14 /min Nereyda Patricia [facility] 10-01-2023 12:10-0500 Systolic blood pressure 168 mm[Hg] Nereyda Patricia [facility] 06-10-2023 10:43-0400 Diastolic blood pressure 64 mm[Hg] Nereyda Patricia [facility] 06-10-2023 10:43-0400 Heart rate 76 /min Nereyda Patricia [facility] 06-10-2023 10:43-0400 Respiratory rate 16 /min Nereyda Patricia [facility] 06-10-2023 10:43-0400 SaO2% (BldA) [Mass fraction] 95 % Nereyda Patricia [facility] 06-10-2023 10:43-0400 Systolic blood pressure 121 mm[Hg] Nereyda Patricia [facility] 04-13-2023 14:19-0400 Diastolic blood pressure 70 mm[Hg] Nereyda Patricia [facility] 04-13-2023 14:19-0400 Mean blood pressure 95 mm[Hg] Nereyda Patricia [facility] 04-13-2023 14:19-0400 Systolic blood pressure 146 mm[Hg] Nereyda Patricia [facility] 04-13-2023 14:15-0400 Blood Pressure Location Nereyda Patricia [facility] 04-13-2023 14:15-0400 Body temperature 97.7 [degF] Nereyda Patricia [facility] 04-13-2023 14:15-0400 Diastolic blood pressure 87 mm[Hg] Nereyda Patricia [facility] 04-13-2023 14:15-0400 Heart rate 70 /min Nereyda Patricia [facility] 04-13-2023 14:15-0400 Systolic blood pressure 150 mm[Hg] Nereyda Patricia [facility] 06-09-2022 10:02-0400 Body temperature 96.98 [degF] Nereyda Patricia [facility] 06-09-2022 10:02-0400 Diastolic blood pressure 75 mm[Hg] Nereyda Patricia [facility] 06-09-2022 10:02-0400 Heart rate 72 /min Nereyda Patricia [facility] 06-09-2022 10:02-0400 SaO2% (BldA) [Mass fraction] 97 % Nereyda Patricia [facility] 06-09-2022 10:02-0400 Systolic blood pressure 139 mm[Hg] Nereyda Gomez [facility] 05-11-2022 11:30-0400 Diastolic blood pressure 102 mm[Hg] Bender SALAM [facility] 05-11-2022 11:30-0400 Heart rate 86 /min Bender SALAM [facility] 05-11-2022 11:30-0400 Respiratory rate 15 /min Bender SALAM [facility] 05-11-2022 11:30-0400 SaO2% (BldA) [Mass fraction] 95 % Bender SALAM [facility] 05-11-2022 11:30-0400 Systolic blood pressure 172 mm[Hg] Bender SALAM [facility] 05-11-2022 11:15-0400 Diastolic blood pressure 88 mm[Hg] Bender SALAM [facility] 05-11-2022 11:15-0400 Heart rate 86 /min Bender SALAM [facility] 05-11-2022 11:15-0400 Respiratory rate 18 /min Bender SALAM [facility] 05-11-2022 11:15-0400 SaO2% (BldA) [Mass fraction] 97 % Bender SALAM [facility] 05-11-2022 11:15-0400 Systolic blood pressure 170 mm[Hg] Bender SALAM [facility] 05-11-2022 11:10-0400 Diastolic blood pressure 108 mm[Hg] Bender SALAM [facility] 05-11-2022 11:10-0400 Heart rate 85 /min Bender SALAM [facility] 05-11-2022 11:10-0400 Respiratory rate 14 /min Bender SALAM [facility] 05-11-2022 11:10-0400 SaO2% (BldA) [Mass fraction] 97 % Bender SALAM [facility] 05-11-2022 11:10-0400 Systolic blood pressure 157 mm[Hg] Bender SALAM [facility] 05-11-2022 11:02-0400 Body temperature 97.34 [degF] Bender SALAM [facility] 05-11-2022 10:27-0400 Blood Pressure Location Bender SALAM [facility] 05-11-2022 10:23-0400 Blood Pressure Location Bender SALAM [facility] 05-11-2022 10:23-0400 Body temperature 98.24 [degF] Bender SALAM [facility] 03-31-2022 09:53-0400 Blood Pressure Location Nereyda Patricia [facility] 03-31-2022 09:53-0400 Body temperature 97.7 [degF] Nereyda Gomez [facility] 03-31-2022 09:53-0400 Diastolic blood pressure 72 mm[Hg] Nereyda Gomez [facility] 03-31-2022 09:53-0400 Heart rate 73 /min Nereyda Gomez [facility] 03-31-2022 09:53-0400 SaO2% (BldA) [Mass fraction] 96 % Nereyda Gomez [facility] 03-31-2022 09:53-0400 Systolic blood pressure 129 mm[Hg] Nereyda Gomez [facility] Encounters Encounter Date Encounter Type Care Provider Facility Start: 12-04-2024 ambulatory MD MARQUIS LOUISE Facility: [place] Start: 10-25-2024 End: 10-25-2024 ambulatory MD MARQUIS LOUISE Facility:[facility] Start: 10-23-2024 End: 10-23-2024 ambulatory MD MARQUIS LOUISE Facility[facility] Start: 10-23-2024 End: 10-23-2024 Patient encounter procedure MARQUIS LOUISE [facility] Start: 10-02-2024 End: 10-02-2024 ambulatory [facility] Start: 09-25-2024 End: 09-25-2024 ambulatory MD MARQUIS LOUISE Facility:[facility] Start: 09-25-2024 End: 09-25-2024 Patient encounter procedure MARQUIS LOUISE [facility] Start: 09-14-2024 End: 09-14-2024 Deangelo Chicas [...] underlying condition with diabetic polyneuropathy, unspecified whether retirement insulin use ([facility]); Pain due to onychomycosis of toenails of [...] Seborrheic keratosis Start: 08-24-2024 End: 08-24-2024 ambulatory RODENY JOY Not Available Start: 08-22-2024 ambulatory Nereyda Gomez Facility :[facility] Start: 08-17-2024 ambulatory MD MARQUIS LOUISE Facility: [facility] Start: 08-14-2024 End: 08-17-2024 Telephone encounter Barrie Montoya MD Work Phone: [facility] Start: 08-08-2024 End: 08-08-2024 ambulatory MD MARQUIS LOUISE Facility:[facility] Start: 08-08-2024 End: 08-08-2024 Patient encounter procedure MARQUIS LOUISE [facility] Start: 08-03-2024 End: 08-03-2024 ambulatory [...] Available Start: 07-05-2024 End: 07-05-2024 ambulatory JEFF [facility] Start: 06-07-2024 End: 06-07-2024 ambulatory RUTHIE [facility] Start: 06-05-2024 End: 06-05-2024 ambulatory [facility] Start: 06-01-2024 End: 06-01-2024 ambulatory BLAISE A BROWN Not Available Start: 04-20-2024 End: 04-20-2024 ambulatory BLAISE A BROWN Not Available Start: 03-03-2024 End: 03-03-2024 ambulatory [facility] Start: 02-10-2024 End: 02-10-2024 ambulatory BLAISE A BROWN Not Available Start: 02-02-2024 ambulatory Nereyda A Patricia Facili ty:[facility] Start: 01-11-2024 End: 01-11-2024 ambulatory BARRIE Gil BEBubba Not Available Start: 12-09-2023 ambulatory Nereyda A Patricia Facili ty:[facility] Start: 12-02-2023 End: 12-02-2023 ambulatory BLAISE A BROWN Not Available Start: 11-17-2023 End: 11-17-2023 ambulatory DANA [facility] Start: 10-14-2023 End: 10-14-2023 Patient encounter procedure Nereyda Gomez [facility] Start: 10-01-2023 End: 10-01-2023 Patient encounter procedure Nereyda Gomez [facility] Start: 10-01-2023 End: 10-01-2023 Patient encounter procedure Nereyda Donatoz [facility] Start: 09-17-2023 End: 09-17-2023 ambulatory [facility] Start: 09-13-2023 End: 09-13-2023 Patient encounter procedure Nereyda Gomez [facility] Start: 08-31-2023 End: 08-31-2023 ambulatory [facility] Start: 07-21-2023 End: 07-21-2023 ambulatory [facility] Start: 06-10-2023 End: 06-10-2023 Patient encounter procedure Nereyda Gomez [facility] Start: 04-15-2023 End: 04-15-2023 Lab Drop off Nereyda A Patricia [facility] Start: 04-13-2023 End: 04-13-2023 Patient encounter procedure Nereydabruce Joyametz [facility] Start: 03-24-2023 End: 03-25-2023 [...] End: 06-09-2022 Patient encounter procedure Nereyda Gomez [facility] Start: 06-08-2022 End: 06-09-2022 ambulatory GAMALIEL DALEY Facility:[facility] Start: 05-11-2022 End: 05-11-2022 Patient encounter procedure Napoleon NOVA [facility] Start: 04-28-2022 End: 04-29-[address] VAN YOUSSEF . Facility:[facility] Start: 03-31-2022 End: 03-31-2022 Patient encounter procedure Nereyda Gomez [facility] Start: 2019 End: 02-07-2019 Patient encounter procedure DEFAULT PHYSICIAN Facility:[facility] Procedures Date Procedure Procedure Detail Performing [...] DERM [address] [place] [address] Rodney Joy MD [address] [place] [address] [facility] Start: 11-30-2024 End: 11-30-2024 Patient encounter procedure 11/30/2024 8:40 AM EST Office Visit [facility] [address] [facility] [address] [place] [address] Blaise Chicas DPM [address] [facility] [address] [place] [address] [facility] Start: 10-10-2024 End: 10-10-2024 Patient encounter procedure 10/10/2024 10:45 AM EST Office Visit [facility] [address] [place] [address] Barrie Montoya MD [address] [facility] [address] [place], [place] [id number] [facility] Start: 09-14-2024 End: 09-14-2024 Patient encounter procedure [facility] Comment on above: Verruca plantaris (P rimary Dx); Foot pain, right; Diabetes mellitus due to underlying condition with diabetic polyneuropathy, unspecified whether retirement insulin use ([facility]); Pain due to onychomycosis of toenails of both feet Start: 08-24-2024 End: 08-24-2024 Patient encounter procedure [facility] Comment on above: Arrived Start: 08-03-2024 End: 08-03-2024 Patient encounter procedure 08/03/2024 8:50 AM EDT Office Visit [facility] [address] [facility] [address] [place] [address] Blaise Chicas DPM [address] [facility] [address] [place] [address] [facility] Start: 08-01-2024 End: 08-01-2024 Patient encounter procedure 08/01/2024 11:30 AM EDT Office Visit [facility] [address] [facility] [address] [place] [address] Barrie Montoya MD [address] [facility] [address] [place], [place] [id number] Arrived [facility] Comment on above: Arrived Start: 07-16-2024 Influenza vaccination Influenza Vacc ine (#1) Research [facility]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 polyneuropathy, unspecified whether retirement insulin use (CMS/HCC) Pain due to onychomycosis of toenails of both feet [facility] Narrative No data available for this section [facility] Hospital Discharge instructions No data available for this section [facility] No data available for this section [facility] Summary Purpose Family History No Family [...] section and content) DATE CREATED AUTHOR 02/09/2019 [facility] DATE CREATED AUTHOR AUTHOR'S ORGANIZ ATION 03/28/2023 [facility] DATE CREATED AUTHOR AUTHOR'S ORGANIZ ATION 07/12/2024 [facility] DATE CREATED AUTHOR AUTHOR'S ORGANIZ ATION 09/15/2024 [facility] EPIC DATE CREATED AUTHOR AUTHOR'S ORGANIZ ATION 10/26/2024 [facility] Care Team (unrecognized sect ion and content) Personnel Name: Van Youssef MD Address: Address: [address] [place] [address] Saddle Mechanic Relationship Specialty Start Date End Date Van Youssef MD [address] [place] [address] [phone] PCP - General Family Medicine 12/02/23 Saddle Mechanic Relationship Specialty Start Date End Date Van Youssef MD [address] [place] [address] [phone] PCP - General Family Medicine 12/02/23 Saddle Mechanic Relationship Specialty Start Date End Date Van Youssef MD [address] [facility] [place] [phone] PCP - General Family Medicine 12/02/23 Saddle Mechanic Relationship Specialty Start Date End Date Van Youssef MD [address] [facility] [place] [phone] PCP - General Family Medicine 12/02/23 Saddle Mechanic Relationship Specialty Start Date End Date Van Youssef MD [address] [facility] [place] [phone] PCP - General Family Medicine 12/02/23 Saddle Mechanic Relationship Specialty Start Date End Date Van Youssef MD [address] [facility] [place] [phone] PCP - General Family Medicine 12/02/23 Reason [...] BE BASED ON THE PRIMARY CLINICAL RECORDS. [facility] [employer] [facility]. provides no warranty or guarantee of the accuracy or completeness of information in this document.
[2024-10-28 19:29] VITALS: BP 163/78; PULSE 81; TEMP 36.6; O2SAT 97; BMI 25.5
[2024-10-28] MEDS: LIDOCAINE 2% JELLY 10 ML UR ×2 (19:30→21:50)
[2024-10-28 20:00] VITALS: BP 163/70; PULSE 87; O2SAT 96
[2024-10-28 20:34] LABS: Basophils Percent Auto 0.4 % (0.2-2.0); Eosinophils Absolute Auto 0.1 10^3/uL (0.0-0.7); Eosinophils Percent Auto 1.7 % (0.9-7.0); Hematocrit 40.6 % (42.0-54.0); Hemoglobin 13.9 g/dL (14.0-18.0); Immature Granulocytes Abs Auto 0.05 10^3/uL (0.00-0.03); Immature Granulocytes Pct Auto 0.7 % (0.0-0.5); Lymphocytes Absolute Auto 0.7 10^3/uL (1.2-3.8); Lymphocytes Percent Auto 8.8 % (20.5-60.0); Mean Corpuscular HGB Conc 34.2 g/dL (29.9-35.2); Mean Corpuscular Hemoglobin 34.3 pg (25.9-34.0); Mean Corpuscular Volume 100.2 fL (80.0-94.0); Mean Platelet Volume 11.8 fL (9.5-13.5); Monocytes Absolute Auto 0.7 10^3/uL (0.3-0.8); Monocytes Percent Auto 9.6 % (1.7-12.0); Neutrophils Absolute Auto 5.9 10^3/uL (1.4-6.5); Neutrophils Percent Auto 78.8 % (43.0-75.0); Platelet Count 194 10^3/uL (150-450); Red Blood Count 4.05 10^6/uL (4.70-6.10); Red Cell Distribution Width 14.1 % (11.0-15.0); White Blood Count 7.5 10^3/uL (4.0-11.0)
[2024-10-28 20:46] LABS: INR 0.99; Prothrombin Time 10.5 sec (9.0-11.6)
[2024-10-28 20:49] LABS: Alanine Aminotransferase 19 U/L (16-63); Albumin Globulin Ratio 0.8; Albumin Level 2.8 g/dL (3.4-5.0); Alkaline Phosphatase 91 U/L (46-116); Anion Gap 10.9; Aspartate Amino Transferase 20 U/L (15-37); BUN Creatinine Ratio 13.5; Bilirubin Total 0.7 mg/dL (0.2-1.0); Calcium 8.7 mg/dL (8.5-10.1); Carbon Dioxide 27.2 mmol/L (21.0-32.0); Chloride 103 mmol/L (98-107); Estimated GFR (African America 44 (>=60 mL/min/1.73m^2); Estimated GFR (Non-African Ame 37 (>=60 mL/min/1.73m^2); Globulin 3.3 g/dL; Glucose 262 mg/dL (74-106); Potassium 4.1 mmol/L (3.5-5.1); Sodium 137 mmol/L (136-145); Total Protein 6.1 g/dL (6.4-8.2)
--- NOTE | 2024-10-28 21:00 | ED.MALEGU1 ---
HPI - Male Genitourinary General Chief complaint: Urogenital-Male Stated complaint: BLEEDING GENITAL-WAS HERE TODAY Time Seen by Provider: 10/28/24 19:28 Source: patient and family Mode of arrival: Wheelchair Limitations: no limitations History of Present Illness HPI Narrative: The patient came to the ER after he already had a catheter placed earlier this morning, the catheter was not draining anymore and he is having a lot of pain in suprapubic area, the patient denies any other complaints Related Data Home Medications ?Medication ?Instructions ?Recorded ?Confirmed ACETAMINOPHEN PM 1 tab PO BEDTIME 05/31/23 08/16/24 Vitamin B-Complex 1 tab PO .NOON 05/31/23 09/08/24 acyclovir 400 mg tablet 400 mg PO Q12H 05/31/23 09/08/24 alogliptin 25 mg tablet 25 mg PO DAILY 05/31/23 09/08/24 apixaban 2.5 mg tablet 2.5 mg PO BID 05/31/23 09/08/24 aspirin 81 mg tablet,delayed 81 mg PO DAILY 05/31/23 09/08/24 release (Adult Low Dose Aspirin) cholecalciferol (vitamin D3) 50 2,000 unit PO DAILY 05/31/23 09/08/24 mcg (2,000 unit) tablet (Thera-D) dicyclomine 10 mg capsule 10 mg PO QID PRN abdominal pain 05/31/23 09/08/24 empagliflozin 25 mg tablet 25 mg PO DAILY 05/31/23 08/16/24 (Jardiance) ezetimibe 10 mg tablet 10 mg PO DAILY 05/31/23 09/08/24 ferrous sulfate 325 mg (65 mg 325 mg PO BID 05/31/23 08/16/24 iron) tablet furosemide 40 mg tablet 40 mg PO Q12H 05/31/23 09/08/24 glimepiride 4 mg tablet 8 mg PO DAILY 05/31/23 09/08/24 labetalol 300 mg tablet 300 mg PO Q12H 05/31/23 09/08/24 magnesium See Rx Instructions PO BID 05/31/23 08/16/24 metoclopramide HCl 5 mg tablet 5 mg PO BEDTIME 05/31/23 09/08/24 tamsulosin 0.4 mg capsule 0.4 mg PO Q24H 05/31/23 09/08/24 alprazolam 0.25 mg tablet 0.25 mg PO BID 08/16/24 09/08/24 dextromethorphan-guaifenesin 30 1 tab PO Q12H 08/16/24 08/16/24 mg-600 mg tablet extended [id number] hr duloxetine 20 mg capsule,delayed 20 mg PO .QD 08/16/24 09/08/24 release escitalopram oxalate 5 mg tablet 5 mg PO .QD 08/16/24 09/08/24 pioglitazone 45 mg tablet (Actos) 45 mg PO DAILY 08/16/24 09/08/24 potassium chloride 20 mEq 40 meq PO .QD 08/16/24 09/08/24 tablet,extended release(part/cryst) Previous Rx's ?Medication ?Instructions ?Recorded clonidine HCl 0.1 mg tablet 0.2 mg (2 x 0.1 mg) PO Q12H #120 08/17/24 tabs Allergies Allergy/AdvReac Type Severity Reaction Status Date / Time nitroglycerin Allergy Intermediate Hypotension Verified 10/28/24 19:28 Iodinated Contrast Media AdvReac Intermediate renal Verified 10/28/24 19:28 problem Review of Systems ROS Status of ROS 10 or more systems reviewed and unremarkable except as noted in history and below [facility] Medical History (Updated 10/28/24 @ 21:06 by Josie Astudillo MD) Lethargy ?R53.83 - Other fatigue (ICD-10) Difficulty with speech ?R47.9 - Unspecified speech disturbances (ICD-10) AMS (altered mental status) ?R41.82 - Altered mental status, unspecified (ICD-10) Balanitis ?N48.1 - Balanitis (ICD-10) Pulmonary edema ?J81.1 - Chronic pulmonary edema (ICD-10) Dyspnea ?R06.00 - Dyspnea, unspecified (ICD-10) Congestive heart failure ?I50.9 - Heart failure, unspecified (ICD-10) Heart failure ?I50.9 - Heart failure, unspecified (ICD-10) Neuropathy ?G62.9 - Polyneuropathy, unspecified (ICD-10) Occasional tremors ?R25.1 - Tremor, unspecified (ICD-10) History of diverticulosis ?Z87.19 - Personal history of other diseases of the digestive system (ICD-10) History of sleep apnea ?Z86.69 - Personal history of other diseases of the nervous system and sense organs (ICD-10) Diabetes ?E11.9 - Type 2 diabetes mellitus without complications (ICD-10) History of hypertension ?Z86.79 - Personal history of other diseases of the circulatory system (ICD-10) History of gastroesophageal reflux (GERD) ?Z87.19 - Personal history of other diseases of the digestive system (ICD-10) History of asthma ?Z87.09 - Personal history of other diseases of the respiratory system (ICD-10) Surgical History (Updated 10/10/23 @ 08:33 by Oscar Jewell) History of cardiac catheterization ?Z98.890 - Other specified postprocedural states (ICD-10) History of cholecystectomy ?Z90.49 - Acquired absence of other specified parts of digestive tract (ICD-10) Family History (Updated 08/16/24 @ 11:04 by Ciarra Villalta RN) Father Family history of myocardial infarction Family history of CHF (congestive heart failure) Family history of hypertension Mother Family history of cancer Grandmother Family history of diabetes mellitus Social History (Updated 08/16/24 @ 11:05 by Ciarra Villalta RN) Within the past year, how often did you have a drink containing alcohol: 2-4 times a month Smoking status: Former smoker Non-prescribed substance use: denies use Highest level of school completed/degree received: 9th grade Little interest or pleasure in doing things: not at all Feeling down, depressed, or hopeless: not at all Exam Narrative Exam Narrative: Nurses notes and vital signs reviewed and patient is not hypoxic. General: Well-appearing and in no apparent distress. Skin: Warm, dry, no pallor noted. No rash. Head: Normocephalic, atraumatic. Neck: Supple, non-tender. Eye: Pupils are equal, round and EOMI. No scleral icterus. Ears, Nose, Mouth, and Throat: TM are clear, no nasal mucosal hypertrophy. Oral mucosa is moist, no posterior oropharynx erythema, uvula is mid-line Cardiovascular: Regular Rate and Rhythm without murmur, gallop or rub. Respiratory: No accessory muscle use or respiratory distress. Lungs are clear to auscultation, no wheezing, rales or rhonchi Chest Wall: no tenderness Back: No midline thoracic or lumbar vertebral tenderness. No CVA tenderness Musculoskeletal: normal ROM, no calf or popliteal tenderness, no lower extremity edema/swelling GI: The patient have suprapubic discomfort and pain Neurological: A&O x4. No cranial nerve dysfunction observed. No truncal ataxia. Moves all extremities. Sensation intact. Psychiatric: Cooperative and interactive. Normal mood and affect. Constitutional Vital Signs, click to edit/add: Last Vital Signs Temp 97.9 F 10/28/24 19:29 Pulse 81 10/28/24 19:29 Resp 16 10/28/24 19:29 BP 163/78 H 10/28/24 19:29 Pulse Ox 97 10/28/24 19:29 O2 Del Method Room Air 10/28/24 19:29 Course Vital Signs Vital signs: Vital Signs Temperature 97.9 F 10/28/24 19:29 Pulse Rate 81 10/28/24 19:29 Respiratory Rate 16 10/28/24 19:29 Blood Pressure 163/78 H 10/28/24 19:29 Pulse Oximetry 97 10/28/24 19:29 Oxygen Delivery Method Room Air 10/28/24 19:29 Temperature 97.9 F 10/28/24 19:29 Pulse Rate 81 10/28/24 19:29 Respiratory Rate 16 10/28/24 19:29 Blood Pressure 163/78 H 10/28/24 19:29 Pulse Oximetry 97 10/28/24 19:29 Oxygen Delivery Method Room Air 10/28/24 19:29 MDM - Male Genitourinary MDM Narrative Medical decision making narrative: Other than the suprapubic discomfort the patient was coming here with a possible urinary tension secondary to the nonfunctioning catheter at that moment but upon arrival irrigation of the catheter ended up with the patient having bloody urine and then it was noted that the patient catheter keep clotting The patient had a three-way catheter initially placed on it still showing some clotting with irrigation patient The patient CBC shows a hemoglobin being 13 although his baseline usually is around 15 but there is no tachycardia or hypotension The patient also had his case discussed with Dr. Rivas in urology service and he requested the patient catheter to repeatedly replaced to a 22-gauge and to continue hand irrigation until the urine is clear and then we can hang the fluid from irrigation The patient case was discussed with Ariana MENDEZ from the hospitalist service and the patient will be admitted under Dr. Sung Lab Data Labs: Lab Results 10/28/24 Range/Units 20:20 WBC 7.5 (4.0-11.0) 10^3/uL RBC 4.05 L (4.70-6.10) 10^6/uL Hgb 13.9 L (14.0-18.0) g/dL Hct 40.6 L (42.0-54.0) % MCV 100.2 H (80.0-94.0) fL MCH 34.3 H (25.9-34.0) pg MCHC 34.2 (29.9-35.2) g/dL RDW 14.1 (11.0-15.0) % Plt Count 194 (150-450) 10^3/uL MPV 11.8 (9.5-13.5) fL Neut % (Auto) 78.8 H (43.0-75.0) % Lymph % (Auto) 8.8 L (20.5-60.0) % Winn % (Auto) 9.6 (1.7-12.0) % Eos % (Auto) 1.7 (0.9-7.0) % Baso % (Auto) 0.4 (0.2-2.0) % Neut # (Auto) 5.9 (1.4-6.5) 10^3/uL Lymph # (Auto) 0.7 L (1.2-3.8) 10^3/uL Winn # (Auto) 0.7 (0.3-0.8) 10^3/uL Eos # (Auto) 0.1 (0.0-0.7) 10^3/uL Baso # (Auto) 0.0 (0.0-0.1) 10^3/uL Abs Immat Gran (auto) 0.05 H (0.00-0.03) 10^3/uL Imm/Tot Granulo (auto) 0.7 H (0.0-0.5) % PT 10.5 (9.0-11.6) sec INR 0.99 Sodium 137 (136-145) mmol/L Potassium 4.1 (3.5-5.1) mmol/L Chloride 103 (98-107) mmol/L Carbon Dioxide 27.2 (21.0-32.0) mmol/L Anion Gap 10.9 BUN 24.0 H (7.0-18.0) mg/dL Creatinine 1.78 H (0.70-1.30) mg/dL Est GFR ( Amer) 44 L (>=60 mL/min/1.73m^2) Est GFR (Non-Af Amer) 37 L (>=60 mL/min/1.73m^2) BUN/Creatinine Ratio 13.5 Glucose 262 H (74-106) mg/dL Calcium 8.7 (8.5-10.1) mg/dL Total Bilirubin 0.7 (0.2-1.0) mg/dL AST 20 (15-37) U/L ALT 19 (16-63) U/L Alkaline Phosphatase 91 (46-116) U/L Total Protein 6.1 L (6.4-8.2) g/dL Albumin 2.8 L (3.4-5.0) g/dL Globulin 3.3 g/dL Albumin/Globulin Ratio 0.8 Discharge Plan Discharge Chief Complaint: Urogenital-Male Clinical Impression: Hematuria, Clot retention of urine Patient Disposition: Admitted As Inpatient Time of Disposition Decision: 21:06
[2024-10-28 21:15] VITALS: PULSE 92; O2SAT 96
[2024-10-28] MEDS: MORPHINE SULFATE 2 MG/ML SYRINGE IV ×2 (21:22→22:39)
[2024-10-29] VITALS (8 sets, daily range): BP systolic 111–160; BP diastolic 56–89; PULSE 70–111; TEMP 36.3–36.5; O2SAT 91–94; BMI 24.6
[2024-10-29] MEDS: CEFTRIAXONE 1,000 MG in 0.9 % SODIUM CHLORIDE 50 ML 100 MG IV ×2 (00:05→21:34)
--- OUTSIDE RECORDS SUMMARY | 2024-10-29 00:36 | XMS_ITS | CCD ---
Author Organization [facility] Care Team Providers Care Deputy Assessor Name Role Phone PHYSICIAN, DEFAULT Admitting Unavailable PHYSICIAN, DEFAULT Attending Unavailable VAN YOUSSEF Primary Care Unavailable Van Youssef Primary Care Physician [phone] MIKAEL ., DR ARAUJO Primary Care Unavailable HOY ., DR ARAUJO Consulting Unavailable HOY ., DR ARAUJO Attending Unavailable HOY ., DR ARAJUO Admitting Unavailable ZIEBER, DR CLOVER Zimmer Consulting Unavailable COUNCIL, DR CRAMER Consulting Unavailable HOY ., DR ARAUJO Primary Care Unavailable COUNCIL, DR CRAMER Attending Unavailable COUNCIL, DR CRAMER Admitting Unavailable COUNCIL, DR CRAMER Consulting Unavailable HOY ., DR ARAUJO Primary Care Unavailable COUNCIL, DR CRAMER Attending Unavailable COUNCIL, DR CRAMER Admitting Unavailable HOY ., DR ARAUJO Consulting Unavailable HOY ., DR ARAUJO Primary Care Unavailable HOY ., DR ARAUJO Attending Unavailable HOY ., DR ARAUJO Admitting Unavailable COUNCIL, DR CRAMER Consulting Unavailable HOY ., DR ARAUJO Primary Care Unavailable COUNCIL, DR CRAMER Attending Unavailable COUNCIL, DR CRAMER Admitting Unavailable HOY ., DR [...] Unavailable Van Youssef MD Primary Care Provider [phone] BLAISE CHICAS Attending Unavailable BARRIE MONTOYA Attending [...] acid] Drug Allergy 11-04-20 13 Unknown [facility] Repository (1 source) NITRO PATCH; Translations: [NITRO PATCH] Propensity to adverse reactions (disorder) 03-18-20 12 [facility] Repository (15 sources) Contrast media; Translations: [Contrast Dye] Drug allergy Unknown (qualifier value) [facility] (20 sources) Hmg-Coa Reductase Inhibitors (Statins); Translations: [statins] Allergy to substance 08-24-20 23 Unknown [facility] (20 sources) Nitroglycerin; Translations: [nitroglycerin] Drug Allergy 02-23-20 22 Unknown (qualifier value) [facility] (2 sources) black walnut pollen extract; Translations: [SOLUAYU-WBN-SAQ REDUCTASE INHIBITORS] Drug Allergy 04-21-20 17 [facility] Repository (1 source) Iodine (And Iodine Containting Drugs) Drug allergy (disorder) 05-28-20 16 [facility] Repository (9 sources) IODINATED CONTRAST MEDIA; Translations: [IODINATED CONTRAST MEDIA] Propensity to adverse reactions to drug (disorder) 07-17-20 22 [facility] Repository (8 sources) Nitroglycerin Allergy to substance 02-23-20 22 [facility] (1 source) Aminolevulinic Acid; Translations: [aminolevulinic acid] Drug Allergy 11-04-20 13 [facility] Repository (1 source) Nitroglycerin; Translations: [Nitroglycerin Patch] Drug Allergy [facility] Repository Medications Current Medications Medication Drug Class(es) Dates Sig (Normalized) Sig (Original) acetaminophen 325 mg / HYDROcodone bitartrate 5 mg oral tablet (1 source) Opioid Agonist Start: 10-16-2024 take 1 tablet by mouth every six hours as needed for pain, then take 2 tablets by mouth every six hours as needed for pain Nichols 325 mg-5 mg oral tablet 1 tab(s), Oral, q6hr, 2 tab(s), Refill(s) 0, Take q6hrs as needed for pain., [facility]/pharmacy #[id number], 185, cm, 10/02/24 11:15:00 EST, Height/Length [...] Active Start: 08-28-2020 take 1 capsule by [facility] once daily Align 4 mg oral capsule 4 mg = 1 cap(s), Oral, Daily, Take after completing the Antibiotics course, # 28 cap(s), Refills(s) 0, Pharmacy: [facility]/pharmacy #[id number], 185, cm, 08/28/20 12:05:00 EDT, Height/Length [...] procedure., # 6 tab(s), Refills(s) 0, Pharmacy: [facility]/pharmacy #[id number], 185, cm, 10/02/24 11:15:00 EST, Height/Length Dosing, 91, kg, 10/02/24 11:15:00 EST, Weight Dosing Start Date: 10/16/24 Status: Ordered Start: 08-11-2024 take 1 tablet by joslyn th twice daily Cipro 500 mg Tab 500 mg = 1 tab(s), Oral, BID, Start 3 days prior to procedure., # 6 tab(s), Refills(s) 0, Pharmacy: [facility]/pharmacy #[id number], 185, cm, 08/08/24 10:28:00 EDT, Height/Length [...] procedure., # 1 tab(s), Refills(s) 0, Pharmacy: [facility]/pharmacy #[id number], 185, cm, 10/02/24 11:15:00 EST, Height/Length [...] to colonoscopy Per physician's instructions, [facility]/pharmacy #[id number], 185, cm, 03/31/22 9:58:00 EDT, Height/Length [...] week(s), # 42 tab(s), Refills(s) 0, Pharmacy: [facility]/pharmacy #[id number], 185, cm, 10/02/24 11:15:00 EST, Height/Length [...] Date: 01/09/19 Status: Ordered 60 actuat tiotropium 0.41110 mg/actuat inhalation spray (13 sources) Anticholinergic Start: [...] 160 cap(s), Refills(s) 1, Pharmacy: [facility]/pharmacy #[id number], 185, cm, 08/28/20 12:05:00 EDT, Height/Length [...] disease (2 sources) Atherosclerotic heart disease of [place] coronary artery without angina pectoris; Translations: [Atherosclerotic heart disease of [place] coronary artery without angina pectoris] Onset: 03-03-2024 [...] source) Long-term current use of anticoagulant; Translations: [long-term (current) use of anticoagulants] Onset: 08-08-2024 Episodic [...] Onset: 04-30-2022 Episodic Other aftercare (1 source) long-term (current) use of aspirin; Translations: [[facility] CURRENT USE OF ASPIRIN] Onset: 08-27-2022 Episodic Other aftercare (1 source) long-term (current) use of anticoagulants; Translations: [[facility] CURRNT USE ANTICOAGULANTS] Onset: 08-27-2022 Episodic Other aftercare (1 source) Other oysterman (current) drug therapy; Translations: [[employer]IE[employer] CURRENT DRUG THERAPY] Onset: 08-27-2022 Episodic Other [...] Is Your Medications List NIFEdipine acetaminophen-hydrocod one (Nichols 325 mg-5 mg oral tablet) acyclovir apixaban [...] MARQUIS LOUISE MD Where: [facility] [address], [address] [place] [address]- Medications What How Much When Why Instructions Unchanged acetaminophen-hydrocod one (Nichols 325 mg-5 mg oral tablet) 1 Tablets [...] emptying Naus (more content not included)... Normal [facility] Inpatient Patient Summaryon 10-23-2024 Inpatient Patient Summary Inpatient Patient Summary [address] [address] Clinical Summary Person Information Name: NADIR BETH Age: 84 Years : 1940 Sex: Male PCP: Van Youssef MD Marital Status: Race: White Ethnicity: Non- or Language: Pashto Visit Id: Visit Reason: BPH WITH URINARY OBSTRUCTION, INCOMPLETE BLADDER EMPTYING Speciality: Acuity: Enc Type: Outpatient Med Service: Surgery Arrival: 10/23/2024 13:48:15 Discharge: Dispo Type: Address: [address] [place] [phone] Provider Notes: Diagnosis: Problems Active BPH with [...] This Visit Final Med List: acetaminophen-hydrocod one (Nichols 325 mg-5 mg oral tablet) 1 Tablets [...] Patient Education Information: Benign Prostatic Hyperplasia Normal [facility] Main OR Intraoperative Recor don 10-23-2024 Main OR Intraoperative Record Main OR Intraoperative Record IntraOp Document Type FTURO Summary Primary Physician: MARQUIS LOUISE MD Finalized Date/Time: 10/23/24 15:03:19 Pt. Name: NADIR BETH Joy Borja/Sex: 1940 Male Med Rec #: [id number] Physician: MARQUIS LOUISE MD Financial #: [id number] Pt. 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 Normal [facility] Main OR Preoperative Recordo n 10-23-2024 Main OR Preoperative Record Main OR Preoperative Record Holding Area Document Type FTURO Summary Primary Physician: MARQUIS LOUISE MD Finalized Date/Time: 10/23/24 14:17:30 Pt. Name: LAURAMiroslavaNADIR DUVALL D.O.B./Sex: 1940 Male Med Rec #: [id number] Physician: MARQUIS LOUISE MD Financial #: [id number] Pt. Type: O Room/Bed: / Admit/Disch: 10/23/24 [...] Complaints of Pain: No Skin Integrity Intact, [place], Warm, & Dry Vitals - EU Blood Pressure 152/78 Pulse 84 bpm Respirations 18 br/min SPO2 90 % Additional None RN Reviewed Yes Specimens Collected Last Modified By: Oliva Goel 10/23/24 14:17:29 Finalized By: Oliva Goel Document Signatures Signed By: Vincent Preeti BURGOS 10/23/24 14:05 Oliva Goel 10/23/24 14:17 Normal [facility] Operative Reporton 4 Operative Report Operative [...] urethral meatus. We then placed the 20 Yoruba cystoscope into the bladder. Bilobar hyperplasia was [...] able to easily navigate with a 20 Yoruba scope. Scope was then removed and an 18 Yoruba Palomares catheter was placed with return of light pink urine and no clots noted. This concluded the procedure. Patient was then transferred to PACU in stable condition. PLAN: Patient will follow-up in 2 days for Palomares catheter removal. 10 cc in the balloon Follow-up in 6 to 8 weeks with IPSS at that time Normal [facility] Comment on above: Result Comment: Elec tronically Signed By: ADRIAN GUSTAFSON, MARQUIS\.br\Date and Time Signed: 10/23/24 15:06 EST Outpatient Surgery Discharge Instructionon 10-23-2024 Outpatient Surgery Discharge Instruction Outpatient Surgery Discharge Instruction [place] [id number] Patient Discharge Instructions PERSON INFORMATION Name: NADIR [...] amount of (more content not included)... Normal [facility] Ambulatory Visit Summaryon 1 12-02-2023 Ambulatory [...] Survey Yo (more content not included)... Normal [facility] Ambulatory Visit Summary Ambulatory Visit Summary [...] us for (more content not included)... Normal [facility] Urology Office/Clinic Noteon 10-02-2024 Urology Office/Clinic [...] with voice recognition artificial intelligence software, specifically FAMOCO, [place] and or Infer. Substitutions may have occurred due to the [...] -Cipro 500mg bid start the day prior, Nichols 325-5mg #2 q6hrs as needed for pain, [...] 3. 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) Pt presented to [facility] ER 08/06/24 with redness on the shaft [...] and Lasix. -Dm control 6. 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 Hx of cardioversion. Elevated risk for periop complications. Based on patient's age, multiple medical comorbidities and his prostate size we discussed extensively that he will benefit most likely from a UroLift procedure. He is amenable to (more content not included)... Normal [facility] Comment on above: Result Comment: Elec tronically Signed By: MARQUIS LOUISE MD\.br\Date and Time Signed: 10/02/24 11:43 EST\.br\Electronically Co-Signed By: Roxy Gatica\.br\Date and Time Co-Signed: 10/02/24 11:21 EST\.br\Electronically Co-Signed By: Roxy Gatica\.br\Date and Time Co-Signed: 10/02/24 11:22 EST\.br\Electronically Co-Signed By: Roxy Gatica\.br\Date and Time Co-Signed: 10/02/24 11:23 EST Inpatient Patient Summaryon 09-25-2024 Inpatient Patient Summary Inpatient Patient Summary [place] [address] Clinical Summary Person Information Name: NADIR BETH Age: 84 Years : 1940 Sex: Male PCP: Van Youssef MD Marital Status: Race: White Ethnicity: Non- or Language: Pashto Visit Id: Visit Reason: ENLARGED PROSTATE WITH URINARY OBSTRUCTION, INCOMPLETE BLADDER EMPTYING Speciality: Acuity: Enc Type: Outpatient Med Service: Surgery Arrival: 09/25/2024 11:42:27 Discharge: Dispo Type: Address: [address] [place] [phone] Provider Notes: Diagnosis: Problems Active BPH with [...] With: Address: When: MARQUIS LOUISE [address] [id number] [phone] Business (1) Comments: Follow-up in the office in 2 weeks to discuss next plan With: Address: When: MARQUIS LOUISE [address] [place] [id number] [phone] Business (1) Patient Education Information: Benign Prostatic Hyperplasia Normal [facility] Main OR Intraoperative Recor don 09-25-2024 Main OR Intraoperative Record Main OR Intraoperative Record IntraOp Document Type FTURO Summary Primary Physician: MARQUIS LOUISE MD Finalized Date/Time: 09/25/24 13:23:58 Pt. Name: NADIR BETH D.O.B./Sex: 1940 Male Med Rec #: [id number] Physician: MARQUIS LOUISE MD Financial #: [id number] Pt. Type: O Room/Bed: / Admit/Disch: 09/25/24 [...] C KWABENA Role Performed Surgeon - Primary Granulator Tender - Primary Scrub - Primary Time In [...] 09/25/24 13:23 Oliva Goel 09/25/24 13:23 Normal [facility] Main OR Preoperative Recordo n 09-25-2024 Main OR Preoperative Record Main OR Preoperative Record Holding Area Document Type FTURO Summary Primary Physician: MARQUIS LOUISE MD Finalized Date/Time: 09/25/24 13:04:51 Pt. Name: NADIR BETH /Sex: 1940 Male Med Rec #: [id number] Physician: MARQUIS LOUISE MD Financial #: [id number] Pt. Type: O Room/Bed: / Admit/Disch: 09/25/24 [...] Complaints of Pain: No Skin Integrity Intact, [place], Warm, & Dry Vitals - EU Blood Pressure Pulse Respirations SPO2 Additional None RN Reviewed Yes Specimens Collected Last Modified By: Oliva Goel 09/25/24 13:04:50 Finalized By: Oliva Goel Document Signatures Signed By: Preeti Kaur LPN 09/25/24 12:49 Oliva Goel 09/25/24 13:04 Normal [facility] Operative Reporton Operative Report Operative Report [...] steps Impression and Plan Counseled: Family. Normal [facility] Comment on above: Result Comment: Elec tronically Signed By: MARQUIS LOUISE MD\.br\Date and Time Signed: 09/25/24 13:27 EST Outpatient Surgery Discharge Instructionon 09-25-2024 Outpatient Surgery Discharge Instruction Outpatient Surgery Discharge Instruction [address] [address] Patient Discharge Instructions PERSON INFORMATION [...] 911 Follow up: With: Address: When: [place] [phone] [employer] (1) Comments: Follow-up in the office in 2 weeks to discuss next plan With: Address: When: [place] [address] [phone] [employer] (1) Comment: PATIENT EDUCATION INFORMATION Instructions: Benign [...] frequen (more content not included)... Normal [facility] No Panel Informationon 08-24 [facility] Ambulatory Visit Summaryon 0 08-08-2024 Ambulatory Visit [...] mg (more content not included)... Normal [facility] Urology Office/Clinic Noteon 08-08-2024 Urology Office/Clinic Note Urology Office/Clinic Note Chief Complaint follow up to [facility] HPI Staff 84 year old male new patient follow up to [facility] 08/06/24 presented due to redness on the [...] 1. 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) Pt presented to [facility] ER 08/06/24 with redness on the shaft [...] urinary channel, (more content not included)... Normal [facility] Comment on above: Result Comment: Elec tronically Signed By: MARQUIS LOUISE MD\.br\Date and Time Signed: 08/08/24 11:05 EDT\.br\Electronically Co-Signed By: Roxy Gatica\.br\Date and Time Co-Signed: 08/08/24 10:46 EDT\.br\Electronically Co-Signed By: Roxy Gatica\.br\Date and Time Co-Signed: 08/08/24 10:53 EDT Office Visiton 07-05-2024 Follow-up visit [id number] Nadir Beth 1940 M Date Provider Department Center 07/05/2024 [facility] NEPHRO Comprehensiv Family History Problem Relation Age of Onset Coronary artery disease Father Family Status - Relation Status Age at Father Level of Service:77100 IN OFFICE/OUTPATIENT ESTABLISHED MOD MDM 30 MIN Reason for Visit and Comments: Follow-up [601833] Normal [facility] 36on 06-20-2024 36 Regarding echo resul [...] her he should have another echo at [facility] in Oct 2024, prior to his follow up with Dr. Cisneros in Nov 2024. She verbalized understanding. Echo order faxed to [facility]. [facility] 06-14-2024 36 Patients called and stating that dr. Linda told her to call and let him know that her husbands blood pressure is better and she would like a call back. [facility] 06-09-2024 36 Spoke with patient's Shanna and made sure she understood to increase labetalol per Dr. Linda. She also understands not to resume hydralazine. [facility] 3606-07-2024 36 I'm Stephanie from Dr. Cisneros's office with Cardiology. Patient's daughter called and wanted to know if Dr. Linda had restarted patient's hydralazine- NOT hydroxyzine. I don't see in the note that it was restarted. Dr. Linda, or someone from his office- can you clarify this for me? Thanks so much. [facility] Follow-Upon 06-07-2024 Follow-Up [id number] Nadir Beth 1940 M Date Provider Department Center 06/07/2024 Salvador-[facility] NEPHRO Comprehensiv Family History Problem Relation Age of Onset Coronary artery disease Father Family Status - Relation Status Age at Father Level of Service:65208 IN OFFICE/OUTPATIENT ESTABLISHED MOD MDM 30 MIN () Reason for Visit and Comments: Follow-up [[id number]] [facility] Telephoneon 06-07-2024 Telephone [id number] Nadir Beth 1940 M Date Provider Department Center 06/07/2024 Francisco-IRIS GUADALUPE [facility] NEPHRO Comprehensiv Family History Problem Relation Age of Onset Coronary artery disease Father Family Status - Relation Status Age at Father [facility] Office Visiton 06-05-2024 Follow-up visit [id number] Nadir Beth 1940 M Date Provider Department Center 06/05/2024 CLARIBEL VILLALOBOS [facility] Family History Problem Relation Age of Onset Coronary artery disease Father Family Status - Relation Status Age at Father Level of Service:89930 IN OFFICE/OUTPATIENT ESTABLISHED MOD MDM 30 MIN [facility] 3605-17-2024 36 Faxed lab orders 05/17/24 [facility] 05-15-2024 36 Patient states that he needs his blood work to go to [facility] before his appointment on 05/31/24. [facility] 05-10-2024 36 LM on for patient or his to return my call. [facility] 05-08-2024 36 Patient's bucio lidia with concerns of elevated BP since hydralazine was stopped at last apt. She said sometimes it's very good - 110/60's and sometimes 152/70. He's scheduled to see you in a few weeks. Did you want to change anything? Please advise. Thanks. [facility] 3604-04-2024 36 Regarding blood work from 04/03/2024: MD Stephanie Kelley MA Stable renal function. Continue same treatment and follow-up as planned. Patient's made aware. [facility] Orders Onlyon 03-21-2024 Orders Only [id number] Nadir Beth Joy 1940 M Date Provider Department Center 03/21/2024 LUCRETIA BENZ [facility] Family History Problem Relation Age of Onset Coronary artery disease Father Family Status - Relation Status Age at Father [facility] Office Visiton 03-03-2024 Follow-up visit [id number] Lauracarl,Nadir Hamilton 1940 M Date Provider Department Center 03/03/2024 CLARIBEL VILLALOBOS CARD [facility] Family History Problem Relation Age of Onset Coronary artery disease Father Family Status - Relation Status Age at Father Level of Service:39487 IN OFFICE/OUTPATIENT ESTABLISHED MOD MDM 30 MIN Reason for Visit and Comments: Follow-up [[id number]] [facility] 36on 12-29-2023 36 Called and spoke jaquan barrera patient and rescheduled patients appointment from 05/31 to 06/07. [facility] 36on 12-28-2023 36 Called patient lvm t o contact the office back to reschedule appointment. [facility] Follow-Upon 11-17-2023 Follow-Up [id number] Nadir Beth 1940 M Date Provider Department Center 11/17/2023 [facility] NEPHRO Comprehensiv Family History Problem Relation Age of Onset Coronary artery disease Father Family Status - Relation Status Age at Father Level of Service:42397 IN OFFICE/OUTPATIENT ESTABLISHED MOD MDM 30 MIN () Reason for Visit and Comments: Follow-up [551005] Chronic Kidney Disease [176] [facility] 36on 10-12-2023 36 Patient called to wander maynard aware that he was in [facility] ED on (Wednesday) for SOB. He wanted you to look over his records. I have uploaded them all into his media reconciliation specialist for your review. His BNP is increased to 4000 and was previously 2600 about 1 month ago. Looks like they gave him extra lasix in the ED and recommended he follow up with Dr. Youssef outpatient. Can you please review and let me know if you'd like anything done/ordered? Thanks. [facility] 36on 09-20-2023 36 Called and spoke jaquan barrera and rescheduled appointment and informed her patient would need to get labs done. [facility] 36 Patients called in to reschedule appointment from 09/08 [facility] Office Visiton 09-17-2023 Follow-up visit [id number] Steen 1940 M Date Provider Department Center 09/17/2023 CLARIBEL VILLALOBOS [facility] Family History Problem Relation Age of Onset Coronary artery disease Father Family Status - Relation Status Age at Father Level of Service:39367 IN OFFICE/OUTPATIENT ESTABLISHED MOD MDM 30-39 MIN Reason for Visit and Comments: Follow-up [[id number]] [facility] 08-31-2023 [facility] Cardiology - [facility] Subjective Nadir Beth is a [...] extremity edema. He was admitted to the [facility] in August 2022 due to hyponatremia, hyperkalemia and acute kidney injury, leukocytosis secondary to COVID-19 causing dehydration. I saw him on 05/24/2023 and the office and he had significant evidence of volume overload by exam and echocardiogram. I intensified his diuretic regimen. He ended up getting admitted to the [facility] with acute heart failure exacerbation and [...] Allergies Allergen Reactions Iodinated Contrast Media Nitroglycerin Vhncznn-Tic-Rzm Reductase Inhibitors Medications Current Outpatient Medications: acyclovir [...] Take 1 ta (more content not included)... [facility] NURSNOTEon 08-31-2023 NURSNOTE Pt performed and passed bedside swallow study. RN educated pt on d/c instructions. RN encouraged pt to voice any questions or concerns. Pt verbalizes no questions or concerns at this time. Pt was wheeled off of unit with all of belongings. [facility] Telephoneon 08-24-2023 Telephone [id number] Nadir Beth 1940 M [facility] Provider Department Center 08/24/2023 RABIA KONG [facility] VASC LAB DE HeartVAS Family History Problem Relation Age of Onset Coronary artery disease Father Family Status - Relation Status Age at Father [facility] Office Visiton 07-21-2023 Follow-up visit [id number] Nadir Beth 1940 M Date Provider Department Center 07/21/2023 CLARIBEL VILLALOBOS [facility] Family History Problem Relation Age of Onset Coronary artery disease Father Family Status - Relation Status Age at Father Level of Service:62134 IN OFFICE/OUTPATIENT ESTABLISHED MOD MDM 30-39 MIN Reason for Visit and Comments: Follow-up [384642] [facility] MICRO OTHER TESTSOrdered By: Francisco Bolanos on 04-15-2023 Fecal WBC Lactoferrin Negative (04/15/23 7:00 AM) Normal Negative [facility] Man Sero CHEMISTRYOrdered By: SYSTEM SYSTEM on 04-13-2023 Albumin [Mass/Vol] 3.8 g/dL Normal 3.3 - 5.0 gm/dL [facility] Remisol Albumin/Globulin [Mass ratio] 1.4 {ratio} Normal [...] 9.8 fL Normal 6.4 - 10.8 fL [facility] HemeAutoSS Platelets (Bld) [#/Vol] 161.0 E9/L Normal 150.0 - 500.0 E9/L [facility] [facility] RBC (Bld) [#/Vol] 4.0 E12/L Low 4.3 - 5.9 E12/L [facility] WBC corrected for nucl RBC Auto (Bld) [#/Vol] 6.7 E9/L Normal 4.0 - 11.0 E9/L [facility] ALBUMINon 03-24-2023 Albumin [Mass/Vol] 3.3 g/dL Critically low 3.4-5.0 [facility] Comment on above: Performed By: #### M ERICK Faith, PHOS #### [facility] [address] [address] [address] David Magana GLYCOHEMOGLOBIN A1Con 2022 ADA RECOMMENDATION SEE BELOW Normal [facility] Comment on above: Result Comment: ADA RECOMMENDED LIMIT 4.0 - 6.0 ADA THERAPEUTIC TARGET < 7.0 ACTION SUGGESTED > 7.0 Performed By: #### A 1C #### [facility] [address] [address] [address] David Magana Glucose [Mass/Vol] 108 mg/dL Normal [facility] Comment on above: Performed By: #### A 1C #### [facility] [address] [address] [address] David Magana HbA1c (Bld) [Mass fraction] 5.4 % Normal 4.5-6.2 [facility] Comment on above: Performed By: #### A 1C #### [facility] [address] [address] [address] David Magana PHOSPHORUSon 03-24-2023 Phosphate [Mass/Vol] 3.6 mg/dL Normal 2.6-4.7 [facility] Comment on above: Performed By: #### M ERICK Faith, PHOS #### [facility] [address] [address] [address] David Magana PROF CHEM 8 (BAS METB)on Anion gap [Moles/Vol] 11.6 mmol/L Normal [facility] Comment on above: Performed By: #### M ERICK Faith, PHOS #### [facility] [address] [address] [address] David Magana Calcium [Mass/Vol] 8.9 mg/dL Normal 8.5-10.1 [facility] Comment on above: Performed By: #### M ERICK Faith, PHOS #### [facility] [address] [address] [address] David Magana Chloride [Moles/Vol] 107 mmol/L Normal 98-107 [facility] Comment on above: Performed By: #### M ERICK Faith, PHOS #### [facility] [address] [place] [address] Dr. David Magana CO2 [Moles/Vol] 30.8 mmol/L Normal 21.0-32.0 [facility] Comment on above: Performed By: #### ERICK Jacques, PHOS #### [facility] [address] [address] [address] David Magana Creatinine [Mass/Vol] 1.67 mg/dL Critically high 0.70-1.30 [facility] Comment on above: Performed By: #### ERICK Jacques, PHOS #### [facility] [address] [place] [address] Dr. David Magana EGFR-AF [place]IZ[place] 48 mL/min/1.73m2 Critically low >=60 [facility] Comment on above: Performed By: #### ERICK Jacques, PHOS #### [facility] [address] [address] [address] David Magana EGFR-NON AF CITIZEN OF [place] 39 mL/min/1.73m2 Critically low >=60 [facility] Comment on above: Performed By: #### M ERICK Faith, PHOS #### [facility] [address] [address] [address] David Magana Glucose [Mass/Vol] 128 mg/dL Critically high 74-106 [facility] Comment on above: Performed By: #### M Marcell BMP, PHOS #### [facility] [address] [place] [address] Dr. David Magana Potassium [Moles/Vol] 4.4 mmol/L Normal 3.5-5.1 [facility] Comment on above: Performed By: #### M Marcell BMP, PHOS #### [facility] [address] [place] [address] Dr. David Magana Sodium [Moles/Vol] 145 mmol/L Normal 136-145 [facility] Comment on above: Performed By: #### M Marcell BMP, PHOS #### [facility] [address] [place] [address] Dr. David Magana Urea nitrogen [Mass/Vol] 25.0 mg/dL Critically high 7.0-18.0 [facility] Comment on above: Performed By: #### ERICK Jacques, PHOS #### [facility] [address] [place] [address] Dr. David Magana Urea nitrogen/Creatinine [Mass ratio] 15.0 mg/mg Normal [facility] Comment on above: Performed By: #### ERICK Jacques, PHOS #### [facility] [address] [place] [address] Dr. David Magana VITAMIN D 25 OHon 03-24-2023 VIT D 25-OH 11.6 ng/mL Normal [facility] Comment on above: Performed By: #### C BC #### [facility] [address] [place] [address] Dr. David Magana VIT D RANGES SEE BELOW Normal [facility] Comment on above: Result Comment: <20 ng/mL Vit D deficient 20 - <30 ng/mL Vit D insufficient 30 - 100 ng/mL Vit D sufficient >100 ng/mL Potential Toxicity Performed By: #### C BC #### [facility] [address] [place] [address] Dr. David Magana CBC AUTO DIFFon 02-27-2023 BASO # 0.0 103/ul Normal 0.0-0.1 [facility] Comment on above: Performed By: #### M ERICK Faith, PHOS #### [facility] [address] [place] [address] Dr. David Magana Basophils/100 WBC (Bld) 0.5 % Normal 0.2-2.0 [facility] Comment on above: Performed By: #### M G, BMP, PHOS #### [facility] [address] [place] [address] Dr. David Magana EO # 0.7 103/ul Normal 0.0-0.7 [facility] Comment on above: Performed By: #### M G, BMP, PHOS #### [facility] [address] [place] [address] Dr. David Magana Eosinophils/100 WBC (Bld) 9.3 % Critically high 0.9-7.0 [facility] Comment on above: Performed By: #### M G, BMP, PHOS #### [facility] [address] [place] [address] Dr. David Magana Erythrocyte distribution width (RBC) [Ratio] 14.6 % Normal 11.0-15.0 [facility] Comment on above: Performed By: #### M G, BMP, PHOS #### [facility] [address] [place] [address] Dr. David Magana Hematocrit (Bld) [Volume fraction] 41.5 % Critically low 42.0-54.0 [facility] Comment on above: Performed By: #### M G, BMP, PHOS #### [facility] [address] [place] [address] Dr. David Magana Hemoglobin (Bld) [Mass/Vol] 13.9 g/dL Critically low 14.0-18.0 [facility] Comment on above: Performed By: #### M G, BMP, PHOS #### [facility] [address] [place] [address] Dr. David Magana IG # 0.02 10e3/ul Normal 0.00-0.03 [facility] Comment on above: Performed By: #### M G, BMP, PHOS #### [facility] [address] [place] [address] Dr. David Magana IG % 0.3 % Normal 0.0-0.5 [facility] Comment on above: Performed By: #### ERICK Jacques, PHOS #### [facility] [address] [place] [address] Dr. David Magana LYMPH # 1.0 103/ul Critically low 1.2-3.8 [facility] Comment on above: Performed By: #### ERICK Jacques, PHOS #### [facility] [address] [place] [address] Dr. David Magana Lymphocytes/100 WBC (Bld) 13.0 % Critically low 20.5-60.0 [facility] Comment on above: Performed By: #### ERICK Jacques, PHOS #### [facility] [address] [place] [address] Dr. David Magana MANUAL DIFF REQ NO Normal [facility] Comment on above: Performed By: #### ERICK Jacques, PHOS #### [facility] [address] [place] [address] Dr. David Magana MCH (RBC) [Entitic mass] 33.5 pg Normal 25.9-34.0 [facility] Comment on above: Performed By: #### ERICK Jacques, PHOS #### [facility] [address] [place] [address] Dr. David Magana MCHC (RBC) [Mass/Vol] 33.5 g/dL Normal 29.9-35.2 [facility] Comment on above: Performed By: #### ERICK Jacques, PHOS #### [facility] [address] [place] [address] Dr. David Magana MCV (RBC) [Entitic vol] 100.0 fL Critically high 80.0-94.0 [facility] Comment on above: Performed By: #### ERICK Jacques, PHOS #### [facility] [address] [place] [address] Dr. David Magana MONO # 0.8 103/ul Normal 0.3-0.8 [facility] Comment on above: Performed By: #### M G, BMP, PHOS #### [facility] [address] [place] [address] Dr. David Magana Monocytes/100 WBC (Bld) 10.1 % Normal 1.7-12.0 [facility] Comment on above: Performed By: #### M G, BMP, PHOS #### [facility] [address] [place] [address] Dr. David Magana NEUT # 5.0 103/ul Normal 1.4-6.5 [facility] Comment on above: Performed By: #### M G, BMP, PHOS #### [facility] [address] [place] [address] Dr. David Magana Neutrophils/100 WBC (Bld) 66.8 % Normal 43.0-75.0 [facility] Comment on above: Performed By: #### M Marcell, BMP, PHOS #### [facility] [address] [place] [address] Dr. David Magana Platelet mean volume (Bld) [Entitic vol] 11.2 fL Normal 9.5-13.5 [facility] Comment on above: Performed By: #### M Marcell BMP, PHOS #### [facility] [address] [place] [address] Dr. David Magana PLT 187 103/ul Normal 150-450 [facility] Comment on above: Performed By: #### M Marcell, BMP, PHOS #### [facility] [address] [place] [address] Dr. David Magana RBC 4.15 106/ul Critically low 4.70-6.10 [facility] Comment on above: Performed By: #### M G, BMP, PHOS #### [facility] [address] [place] [address] Dr. David Magana WBC 7.5 103/ul Normal 4.0-11.0 [facility] Comment on above: Performed By: #### M G, BMP, PHOS #### [facility] [address] [place] [address] Dr. David Magana PROF 14(COMP METB)on 023 Albumin [Mass/Vol] 3.5 g/dL Normal 3.4-5.0 [facility] Comment on above: Performed By: #### A 1C #### [facility] [address] [place] [address] Dr. David Magana Albumin/Globulin [Mass ratio] 1.1 {ratio} Normal [facility] Comment on above: Performed By: #### A 1C #### [facility] [address] [place] [address] Dr. David Magana ALP [Catalytic activity/Vol] 76 U/L Normal 46-116 [facility] Comment on above: Performed By: #### A 1C #### [facility] [address] [place] [address] Dr. David Magana ALT [Catalytic activity/Vol] 23 U/L Normal 16-63 [facility] Comment on above: Performed By: #### A 1C #### [facility] [address] [place] [address] Dr. David Magana Anion gap [Moles/Vol] 13.1 mmol/L Normal [facility] Comment on above: Performed By: #### A 1C #### [facility] [address] [place] [address] Dr. David Magana AST [Catalytic activity/Vol] 17 U/L Normal 15-37 [facility] Comment on above: Performed By: #### A 1C #### [facility] [address] [place] [address] Dr. David Magana Bilirubin [Mass/Vol] 0.7 mg/dL Normal 0.2-1.0 [facility] Comment on above: Performed By: #### A 1C #### [facility] [address] [place] [address] Dr. David Magnaa Calcium [Mass/Vol] 9.0 mg/dL Normal 8.5-10.1 [facility] Comment on above: Performed By: #### A 1C #### [facility] [address] [place] [address] Dr. David Magana Chloride [Moles/Vol] 105 mmol/L Normal 98-107 [facility] Comment on above: Performed By: #### A 1C #### [facility] [address] [address] [address] David Magana CO2 [Moles/Vol] 29.0 mmol/L Normal 21.0-32.0 [facility] Comment on above: Performed By: #### A 1C #### [facility] [address] [address] [address] David Magana Creatinine [Mass/Vol] 1.77 mg/dL Critically high 0.70-1.30 [facility] Comment on above: Performed By: #### A 1C #### [facility] [address] [address] [address] David Magana EGFR-AF [place] 45 mL/min/1.73m2 Critically low >=60 [facility] Comment on above: Performed By: #### A 1C #### [facility] [address] [address] [address] David Magana EGFR-NON AF [place]IZ[place] 37 mL/min/1.73m2 Critically low >=60 [facility] Comment on above: Performed By: #### A 1C #### [facility] [address] [address] [address] David Magana Globulin (S) [Mass/Vol] 3.3 g/dL Normal [facility] Comment on above: Performed By: #### A 1C #### [facility] [address] [address] [address] David Magana Glucose [Mass/Vol] 135 mg/dL Critically high 74-106 [facility] Comment on above: Performed By: #### A 1C #### [facility] [address] [address] [address] David Magana Potassium [Moles/Vol] 4.1 mmol/L Normal 3.5-5.1 [facility] Comment on above: Performed By: #### A 1C #### [facility] [address] [address] [address] David Magana Protein [Mass/Vol] 6.8 g/dL Normal 6.4-8.2 [facility] Comment on above: Performed By: #### A 1C #### [facility] [address] [address] [address] David Magana Sodium [Moles/Vol] 143 mmol/L Normal 136-145 [facility] Comment on above: Performed By: #### A 1C #### [facility] [address] [address] [address] David Magana Urea nitrogen [Mass/Vol] 31.0 mg/dL Critically high 7.0-18.0 [facility] Comment on above: Performed By: #### A 1C #### [facility] [address] [address] [address] David Magana Urea nitrogen/Creatinine [Mass ratio] 17.5 mg/mg Normal [facility] Comment on above: Performed By: #### A 1C #### [facility] [address] [place] [address] Dr. David Magana PROTIMEon 02-27-2023 INR Coag (PPP) [Relative time] 0.99 {INR} Normal [facility] Comment on above: Performed By: #### A 1C #### [facility] [address] [address] [address] David Magana INR GUIDELINES SEE BELOW Normal [facility] Comment on above: Result Comment: IDANIA RED INR: 2.0 - 3.0 CONDITIONS NOT LISTED BELOW 2.5 - 3.5 FOR PROSTHETIC HEART VALVE REPLACEMENT 2.5 - 3.5 RECURRENT THROMBOSIS Performed By: #### A 1C #### [facility] [address] [place] [address] Dr. David Magana PT Coag (PPP) [Time] 10.5 s Normal 9.0-11.6 [facility] Comment on above: Performed By: #### A 1C #### [facility] [address] [place] [address] Dr. David Magana PTTon 02-27-2023 aPTT Coag (Bld) [Time] 33.0 s Normal 22.3-36.2 [facility] Comment on above: Performed By: #### P OCGLUC #### [facility] [address] [address] [address] David Magana ALBUMINon 12-28-2022 Albumin [Mass/Vol] 3.6 g/dL Normal 3.4-5.0 [facility] Comment on above: Performed By: #### C BC #### [facility] [address] [place] [address] Dr. David Magana GLYCOHEMOGLOBIN A1Con 2022 ADA RECOMMENDATION SEE BELOW Normal [facility] Comment on above: Result Comment: ADA RECOMMENDED LIMIT 4.0 - 6.0 ADA THERAPEUTIC TARGET < 7.0 ACTION SUGGESTED > 7.0 Performed By: #### P OCGLUC #### [facility] [address] [place] [address] Dr. David Magana Glucose [Mass/Vol] 140 mg/dL Normal [facility] Comment on above: Performed By: #### P OCGLUC #### [facility] [address] [place] [address] Dr. David Magana HbA1c (Bld) [Mass fraction] 6.5 % Critically high 4.5-6.2 [facility] Comment on above: Performed By: #### P OCGLUC #### [facility] [address] [place] [address] Dr. David Magana MAGNESIUMon 12-28-2022 Magnesium [Mass/Vol] 2.3 mg/dL Normal 1.8-2.4 [facility] Comment on above: Performed By: #### P OCGLUC #### [facility] [address] [place] [address] Dr. David Magana PROF CHEM 8 (BAS METB)on Anion gap [Moles/Vol] 13.2 mmol/L Normal [facility] Comment on above: Performed By: #### P OCGLUC #### [facility] [address] [place] [address] Dr. David Magana Calcium [Mass/Vol] 9.0 mg/dL Normal 8.5-10.1 [facility] Comment on above: Performed By: #### P OCGLUC #### [facility] [address] [address] [address] David Magana Chloride [Moles/Vol] 105 mmol/L Normal 98-107 [facility] Comment on above: Performed By: #### P OCGLUC #### [facility] [address] [address] [address] David Magana CO2 [Moles/Vol] 28.9 mmol/L Normal 21.0-32.0 [facility] Comment on above: Performed By: #### P OCGLUC #### [facility] [address] [address] [address] David Magana Creatinine [Mass/Vol] 1.66 mg/dL Critically high 0.70-1.30 [facility] Comment on above: Performed By: #### P OCGLUC #### [facility] [address] [address] [address] David Magana EGFR-AF [place] 48 mL/min/1.73m2 Critically low >=60 [facility] Comment on above: Performed By: #### P OCGLUC #### [facility] [address] [address] [address] David Magana EGFR-NON AF [place]IZ[place] 40 mL/min/1.73m2 Critically low >=60 [facility] Comment on above: Performed By: #### P OCGLUC #### [facility] [address] [address] [address] David Magana Glucose [Mass/Vol] 123 mg/dL Critically high 74-106 [facility] Comment on above: Performed By: #### P OCGLUC #### [facility] [address] [address] [address] Davdi Magana Potassium [Moles/Vol] 4.1 mmol/L Normal 3.5-5.1 [facility] Comment on above: Performed By: #### P OCGLUC #### [facility] [address] [address] [address] David Magana Sodium [Moles/Vol] 143 mmol/L Normal 136-145 [facility] Comment on above: Performed By: #### P OCGLUC #### [facility] [address] [address] [address] David Magana Urea nitrogen [Mass/Vol] 29.0 mg/dL Critically high 7.0-18.0 [facility] Comment on above: Performed By: #### P OCGLUC #### [facility] [address] [place] [address] Dr. David Magana Urea nitrogen/Creatinine [Mass ratio] 17.5 mg/mg Normal [facility] Comment on above: Performed By: #### P OCGLUC #### [facility] [address] [place] [address] Dr. David Magana URINE T PROTEIN CREAT RATIOo n 12-28-2022 UR TOTAL PROTEIN <6.0 Normal <=12.0 [facility] Comment on above: Performed By: #### M G, BMP, PHOS #### [facility] [address] [place] [address] Dr. David Magana URINE CREAT 41.21 mg/dL Normal 20.00-300.00 [facility] Comment on above: Performed By: #### M G, BMP, PHOS #### [facility] [address] [place] [address] Dr. David Magana ALBUMINon 11-16-2022 Albumin [Mass/Vol] 3.3 g/dL Critically low 3.4-5.0 [facility] Comment on above: Performed By: #### C BC #### [facility] [address] [place] [address] Dr. David Magana CREATININE URINEon URINE CREAT 19.69 mg/dL Critically low 20.00-300.00 [facility] Comment on above: Performed By: #### M G, BMP, PHOS #### [facility] [address] [place] [address] Dr. David Magana HEMOGLOBINon 11-16-2022 Hemoglobin (Bld) [Mass/Vol] 14.9 g/dL Normal 14.0-18.0 [facility] Comment on above: Performed By: #### M G, BMP, PHOS #### [facility] [address] [place] [address] Dr. David Magana MAGNESIUMon 11-16-2022 Magnesium [Mass/Vol] 2.2 mg/dL Normal 1.8-2.4 [facility] Comment on above: Performed By: #### C BC #### [facility] [address] [place] [address] Dr. David Magana PHOSPHORUSon 11-16-2022 Phosphate [Mass/Vol] 3.9 mg/dL Normal 2.6-4.7 [facility] Comment on above: Performed By: #### C BC #### [facility] [address] [place] [address] Dr. David Magana PROF CHEM 8 (BAS METB)on Anion gap [Moles/Vol] 11.9 mmol/L Normal [facility] Comment on above: Performed By: #### C BC #### [facility] [address] [place] [address] Dr. David Magana Calcium [Mass/Vol] 8.8 mg/dL Normal 8.5-10.1 [facility] Comment on above: Performed By: #### C BC #### [facility] [address] [place] [address] Dr. David Magana Chloride [Moles/Vol] 104 mmol/L Normal 98-107 [facility] Comment on above: Performed By: #### C BC #### [facility] [address] [place] [address] Dr. David Magana CO2 [Moles/Vol] 27.4 mmol/L Normal 21.0-32.0 [facility] Comment on above: Performed By: #### C BC #### [facility] [address] [place] [address] Dr. David Magana Creatinine [Mass/Vol] 1.68 mg/dL Critically high 0.70-1.30 [facility] Comment on above: Performed By: #### C BC #### [facility] [address] [place] [address] Dr. David Magana EGFR-AF [place] 48 mL/min/1.73m2 Critically low >=60 [facility] Comment on above: Performed By: #### C BC #### [facility] [address] [address] [address] David Magana EGFR-NON AF [place]IZ[place] OF [place] 39 mL/min/1.73m2 Critically low >=60 [facility] Comment on above: Performed By: #### C BC #### [facility] [address] [address] [address] David Magana Glucose [Mass/Vol] 212 mg/dL Critically high 74-106 [facility] Comment on above: Performed By: #### C BC #### [facility] [address] [address] [address] David Magana Potassium [Moles/Vol] 4.3 mmol/L Normal 3.5-5.1 [facility] Comment on above: Performed By: #### C BC #### [facility] [address] [address] [address] David Magana Sodium [Moles/Vol] 139 mmol/L Normal 136-145 [facility] Comment on above: Performed By: #### C BC #### [facility] [address] [address] [address] David Magana Urea nitrogen [Mass/Vol] 25.0 mg/dL Critically high 7.0-18.0 [facility] Comment on above: Performed By: #### C BC #### [facility] [address] [address] [address] David Magana Urea nitrogen/Creatinine [Mass ratio] 14.9 mg/mg Normal [facility] Comment on above: Performed By: #### C BC #### [facility] [address] [address] [address] David Magana PROTEIN RAND URINEon 023 UR PROT <5.0 Normal <=11.9 [facility] Comment on above: Performed By: #### M G, BMP, PHOS #### [facility] [address] [address] [address] David Magana US CHANI DOP LEG [...] CLOVER PEREZ Date: 2022-11-02 16:21 Normal [facility] BNPon 07-22-2022 Natriuretic peptide B (Bld) [Mass/Vol] 2143.0 pg/mL Critically high <=1,800.0 [facility] Comment on above: Performed By: #### M ERICK Faith PHOS #### [facility] [address] [place] [address] Dr. David Magana CBC AUTO DIFFon 07-22-2022 BASO # 0.0 103/ul Normal 0.0-0.1 [facility] Comment on above: Performed By: #### A 1C #### [facility] [address] [place] [address] Dr. David Magana Basophils/100 WBC (Bld) 0.3 % Normal 0.2-2.0 [facility] Comment on above: Performed By: #### A 1C #### [facility] [address] [place] [address] Dr. David Magana EO # 0.3 103/ul Normal 0.0-0.7 [facility] Comment on above: Performed By: #### A 1C #### [facility] [address] [place] [address] Dr. David Magana Eosinophils/100 WBC (Bld) 2.4 % Normal 0.9-7.0 [facility] Comment on above: Performed By: #### A 1C #### [facility] Laboratory [address] [place] [address] Dr. David Magana Erythrocyte distribution width (RBC) [Ratio] 13.4 % Normal 11.0-15.0 [facility] Comment on above: Performed By: #### A 1C #### [facility] [address] [place] [address] Dr. David Magana Hematocrit (Bld) [Volume fraction] 42.7 % Normal 42.0-54.0 [facility] Comment on above: Performed By: #### A 1C #### [facility] [address] [place] [address] Dr. David Magana Hemoglobin (Bld) [Mass/Vol] 14.2 g/dL Normal 14.0-18.0 [facility] Comment on above: Performed By: #### A 1C #### [facility] [address] [address] [address] David Magana IG # 0.18 10e3/ul Critically high 0.00-0.03 [facility] Comment on above: Performed By: #### A 1C #### [facility] [address] [place] [address] Dr. David Magana IG % 1.6 % Critically high 0.0-0.5 [facility] Comment on above: Performed By: #### A 1C #### [facility] [address] [address] [address] David Magana LYMPH # 0.9 103/ul Critically low 1.2-3.8 [facility] Comment on above: Performed By: #### A 1C #### [facility] [address] [place] [address] Dr. David Magana Lymphocytes/100 WBC (Bld) 8.1 % Critically low 20.5-60.0 [facility] Comment on above: Performed By: #### A 1C #### [facility] [address] [place] [address] Dr. David Magana MANUAL DIFF REQ NO Normal [facility] Comment on above: Performed By: #### A 1C #### [facility] [address] [place] [address] Dr. David Magana MCH (RBC) [Entitic mass] 33.3 pg Normal 25.9-34.0 [facility] Comment on above: Performed By: #### A 1C #### [facility] [address] [place] [address] Dr. David Magana MCHC (RBC) [Mass/Vol] 33.3 g/dL Normal 29.9-35.2 [facility] Comment on above: Performed By: #### A 1C #### [facility] [address] [place] [address] Dr. David Magana MCV (RBC) [Entitic vol] 100.2 fL Critically high 80.0-94.0 [facility] Comment on above: Performed By: #### A 1C #### [facility] [address] [address] [address] David Magana MONO # 1.2 103/ul Critically high 0.3-0.8 [facility] Comment on above: Performed By: #### A 1C #### [facility] [address] [place] [address] Dr. David Magana Monocytes/100 WBC (Bld) 10.5 % Normal 1.7-12.0 [facility] Comment on above: Performed By: #### A 1C #### [facility] [address] [place] [address] Dr. David Magana NEUT # 8.9 103/ul Critically high 1.4-6.5 [facility] Comment on above: Performed By: #### A 1C #### [facility] [address] [place] [address] Dr. David Magana Neutrophils/100 WBC (Bld) 77.1 % Critically high 43.0-75.0 [facility] Comment on above: Performed By: #### A 1C #### [facility] [address] [place] [address] Dr. David Magana Platelet mean volume (Bld) [Entitic vol] 11.3 fL Normal 9.5-13.5 [facility] Comment on above: Performed By: #### A 1C #### [facility] [address] [place] [address] Dr. David Magana PLT 175 103/ul Normal 150-450 [facility] Comment on above: Performed By: #### A 1C #### [facility] [address] [place] [address] Dr. David Magana RBC 4.26 106/ul Critically low 4.70-6.10 [facility] Comment on above: Performed By: #### A 1C #### [facility] [address] [place] [address] Dr. David Magana WBC 11.5 103/ul Critically high 4.0-11.0 [facility] Comment on above: Performed By: #### A 1C #### [facility] [address] [place] [address] Dr. David Magana PROF 14(COMP METB)on 022 Albumin [Mass/Vol] 2.6 g/dL Critically low 3.4-5.0 [facility] Comment on above: Performed By: #### ERICK Jacques, PHOS #### [facility] [address] [place] [address] Dr. David Magana Albumin/Globulin [Mass ratio] 0.9 {ratio} Normal [facility] Comment on above: Performed By: #### ERICK Jacques, PHOS #### [facility] [address] [place] [address] Dr. David Magana ALP [Catalytic activity/Vol] 49 U/L Normal 46-116 [facility] Comment on above: Performed By: #### ERICK Jacques, PHOS #### [facility] [address] [place] [address] Dr. David Magana ALT [Catalytic activity/Vol] 25 U/L Normal 16-63 [facility] Comment on above: Performed By: #### ERICK Jacques, PHOS #### [facility] [address] [place] [address] Dr. David Magana Anion gap [Moles/Vol] 12.8 mmol/L Normal [facility] Comment on above: Performed By: #### M Marcell BMP, PHOS #### [facility] [address] [place] [address] Dr. David Magana AST [Catalytic activity/Vol] 9 U/L Critically low 15-37 [facility] Comment on above: Performed By: #### Jim Faith BMP, PHOS #### [facility] [address] [address] [address] David Magana Bilirubin [Mass/Vol] 0.5 mg/dL Normal 0.2-1.0 [facility] Comment on above: Performed By: #### M G, BMP, PHOS #### [facility] [address] [address] [address] David Magana Calcium [Mass/Vol] 8.3 mg/dL Critically low 8.5-10.1 [facility] Comment on above: Performed By: #### M G, BMP, PHOS #### [facility] [address] [address] [address] David Magana Chloride [Moles/Vol] 105 mmol/L Normal 98-107 [facility] Comment on above: Performed By: #### M G, BMP, PHOS #### [facility] [address] [place] [address] Dr. David Magana CO2 [Moles/Vol] 24.2 mmol/L Normal 21.0-32.0 [facility] Comment on above: Performed By: #### M G, BMP, PHOS #### [facility] [address] [address] [address] David Magana Creatinine [Mass/Vol] 1.28 mg/dL Normal 0.70-1.30 [facility] Comment on above: Performed By: #### M G, BMP, PHOS #### [facility] [address] [address] [address] David Magana EGFR-AF CITIZ[place] >60 Normal >=60 [facility] Comment on above: Performed By: #### M G, BMP, PHOS #### [facility] [address] [address] [address] David Magana EGFR-NON AF CITIZEN OF [place] 54 mL/min/1.73m2 Critically low >=60 [facility] Comment on above: Performed By: #### M G, BMP, PHOS #### [facility] [address] [address] [address] David Magana Globulin (S) [Mass/Vol] 2.9 g/dL Normal [facility] Comment on above: Performed By: #### M ERICK Faith, PHOS #### [facility] [address] [address] [address] David Magana Glucose [Mass/Vol] 205 mg/dL Critically high 74-106 [facility] Comment on above: Performed By: #### M ERICK Faith, PHOS #### [facility] [address] [place] [address] Dr. David Magana Potassium [Moles/Vol] 4.0 mmol/L Normal 3.5-5.1 [facility] Comment on above: Performed By: #### ERICK Jacques, PHOS #### [facility] [address] [place] [address] Dr. David Magana Protein [Mass/Vol] 5.5 g/dL Critically low 6.4-8.2 [facility] Comment on above: Performed By: #### ERICK Jacques, PHOS #### [facility] [address] [place] [address] Dr. David Magana Sodium [Moles/Vol] 138 mmol/L Normal 136-145 [facility] Comment on above: Performed By: #### ERICK Jacques, PHOS #### [facility] [address] [place] [address] Dr. David Magana Urea nitrogen [Mass/Vol] 36.0 mg/dL Critically high 7.0-18.0 [facility] Comment on above: Performed By: #### ERICK Jacques, PHOS #### [facility] [address] [place] [address] Dr. David Magana Urea nitrogen/Creatinine [Mass ratio] 28.1 mg/mg Normal [facility] Comment on above: Performed By: #### ERICK Jacques, PHOS #### [facility] [address] [place] [address] Dr. David Magana BNPon 07-21-2022 Natriuretic peptide B (Bld) [Mass/Vol] 3485.0 pg/mL Critically high <=1,800.0 [facility] Comment on above: Result Comment: repe ated Performed By: #### A 1C #### [facility] [address] [address] [address] David Magana CBC AUTO DIFFon 07-21-2022 BASO # 0.0 103/ul Normal 0.0-0.1 [facility] Comment on above: Performed By: #### C BC #### [facility] [address] [address] [address] David Magana Basophils/100 WBC (Bld) 0.3 % Normal 0.2-2.0 [facility] Comment on above: Performed By: #### C BC #### [facility] [address] [address] [address] David Magana EO # 0.2 103/ul Normal 0.0-0.7 [facility] Comment on above: Performed By: #### C BC #### [facility] [address] [place] [address] Dr. David Magana Eosinophils/100 WBC (Bld) 1.9 % Normal 0.9-7.0 [facility] Comment on above: Performed By: #### C BC #### [facility] [address] [address] [address] David Magana Erythrocyte distribution width (RBC) [Ratio] 13.4 % Normal 11.0-15.0 [facility] Comment on above: Performed By: #### C BC #### [facility] [address] [place] [address] Dr. David Magana Hematocrit (Bld) [Volume fraction] 42.5 % Normal 42.0-54.0 [facility] Comment on above: Performed By: #### C BC #### [facility] [address] [address] [address] David Magana Hemoglobin (Bld) [Mass/Vol] 14.2 g/dL Normal 14.0-18.0 [facility] Comment on above: Performed By: #### C BC #### [facility] [address] [address] [address] David Magana IG # 0.22 10e3/ul Critically high 0.00-0.03 [facility] Comment on above: Performed By: #### C BC #### [facility] [address] [address] [address] David Magana IG % 2.1 % Critically high 0.0-0.5 [facility] Comment on above: Performed By: #### C BC #### [facility] [address] [address] [address] David Magana LYMPH # 0.8 103/ul Critically low 1.2-3.8 [facility] Comment on above: Performed By: #### C BC #### [facility] [address] [place] [address] Dr. David Magana Lymphocytes/100 WBC (Bld) 7.7 % Critically low 20.5-60.0 [facility] Comment on above: Performed By: #### C BC #### [facility] [address] [place] [address] Dr. David Magana MANUAL DIFF REQ NO Normal [facility] Comment on above: Performed By: #### C BC #### [facility] [address] [address] [address] David Magana MCH (RBC) [Entitic mass] 33.0 pg Normal 25.9-34.0 [facility] Comment on above: Performed By: #### C BC #### [facility] [address] [place] [address] Dr. David Magana MCHC (RBC) [Mass/Vol] 33.4 g/dL Normal 29.9-35.2 [facility] Comment on above: Performed By: #### C BC #### [facility] [address] [place] [address] Dr. David Magana MCV (RBC) [Entitic vol] 98.8 fL Critically high 80.0-94.0 [facility] Comment on above: Performed By: #### C BC #### [facility] [address] [place] [address] Dr. David Magana MONO # 1.0 103/ul Critically high 0.3-0.8 [facility] Comment on above: Performed By: #### C BC #### [facility] [address] [address] [address] David Magana Monocytes/100 WBC (Bld) 9.7 % Normal 1.7-12.0 [facility] Comment on above: Performed By: #### C BC #### [facility] [address] [address] [address] David Magana NEUT # 8.1 103/ul Critically high 1.4-6.5 [facility] Comment on above: Performed By: #### C BC #### [facility] [address] [place] [address] Dr. David Magana Neutrophils/100 WBC (Bld) 78.3 % Critically high 43.0-75.0 [facility] Comment on above: Performed By: #### C BC #### [facility] [address] [place] [address] Dr. David Magana Platelet mean volume (Bld) [Entitic vol] 10.7 fL Normal 9.5-13.5 [facility] Comment on above: Performed By: #### C BC #### [facility] [address] [place] [address] Dr. David Magana PLT 177 103/ul Normal 150-450 [facility] Comment on above: Performed By: #### C BC #### [facility] [address] [place] [address] Dr. David Magana RBC 4.30 106/ul Critically low 4.70-6.10 [facility] Comment on above: Performed By: #### C BC #### [facility] [address] [place] [address] Dr. David Magana WBC 10.4 103/ul Normal 4.0-11.0 [facility] Comment on above: Performed By: #### C BC #### [facility] [address] [place] [address] Dr. David Magana PROF 14(COMP METB)on 022 Albumin [Mass/Vol] 2.6 g/dL Critically low 3.4-5.0 [facility] Comment on above: Performed By: #### A 1C #### [facility] [address] [address] [address] David Magana Albumin/Globulin [Mass ratio] 1.0 {ratio} Normal [facility] Comment on above: Performed By: #### A 1C #### [facility] [address] [place] [address] Dr. David Magana ALP [Catalytic activity/Vol] 50 U/L Normal 46-116 [facility] Comment on above: Performed By: #### A 1C #### [facility] [address] [place] [address] Dr. David Magana ALT [Catalytic activity/Vol] 28 U/L Normal 16-63 [facility] Comment on above: Performed By: #### A 1C #### [facility] [address] [place] [address] Dr. David Magana Anion gap [Moles/Vol] 11.4 mmol/L Normal [facility] Comment on above: Performed By: #### A 1C #### [facility] [address] [place] [address] Dr. David Magana AST [Catalytic activity/Vol] 13 U/L Critically low 15-37 [facility] Comment on above: Performed By: #### A 1C #### [facility] [address] [place] [address] Dr. David Magana Bilirubin [Mass/Vol] 0.4 mg/dL Normal 0.2-1.0 [facility] Comment on above: Performed By: #### A 1C #### [facility] [address] [place] [address] Dr. David Magana Calcium [Mass/Vol] 8.4 mg/dL Critically low 8.5-10.1 [facility] Comment on above: Performed By: #### A 1C #### [facility] [address] [place] [address] Dr. David Magana Chloride [Moles/Vol] 107 mmol/L Normal 98-107 [facility] Comment on above: Performed By: #### A 1C #### [facility] [address] [address] [address] David Magnaa CO2 [Moles/Vol] 24.6 mmol/L Normal 21.0-32.0 [facility] Comment on above: Performed By: #### A 1C #### [facility] [address] [place] [address] Dr. David Magana Creatinine [Mass/Vol] 1.26 mg/dL Normal 0.70-1.30 [facility] Comment on above: Performed By: #### A 1C #### [facility] [address] [place] [address] Dr. David Magana EGFR-AF CITIZ[place] >60 Normal >=60 [facility] Comment on above: Performed By: #### A 1C #### [facility] [address] [place] [address] Dr. David Magana EGFR-NON AF [place]IZEN [place] 55 mL/min/1.73m2 Critically low >=60 [facility] Comment on above: Performed By: #### A 1C #### [facility] [address] [place] [address] Dr. David Magana Globulin (S) [Mass/Vol] 2.7 g/dL Normal [facility] Comment on above: Performed By: #### A 1C #### [facility] [address] [place] [address] Dr. David Magana Glucose [Mass/Vol] 203 mg/dL Critically high 74-106 [facility] Comment on above: Performed By: #### A 1C #### [facility] [address] [place] [address] Dr. David Magana Potassium [Moles/Vol] 4.0 mmol/L Normal 3.5-5.1 [facility] Comment on above: Performed By: #### A 1C #### [facility] [address] [place] [address] Dr. David Magana Protein [Mass/Vol] 5.3 g/dL Critically low 6.4-8.2 [facility] Comment on above: Performed By: #### A 1C #### [facility] [address] [place] [address] Dr. David Magana Sodium [Moles/Vol] 139 mmol/L Normal 136-145 [facility] Comment on above: Performed By: #### A 1C #### [facility] [address] [place] [address] Dr. David Magana Urea nitrogen [Mass/Vol] 33.0 mg/dL Critically high 7.0-18.0 [facility] Comment on above: Performed By: #### A 1C #### [facility] [address] [place] [address] Dr. David Magana Urea nitrogen/Creatinine [Mass ratio] 26.2 mg/mg Normal [facility] Comment on above: Performed By: #### A 1C #### [facility] [address] [place] [address] Dr. David Magana BNPon 07-20-2022 Natriuretic peptide B (Bld) [Mass/Vol] 7478.0 pg/mL Critically high <=1,800.0 [facility] Comment on above: Performed By: #### A 1C #### [facility] [address] [place] [address] Dr. David Magana CBC AUTO DIFFon 07-20-2022 BASO # 0.1 103/ul Normal 0.0-0.1 [facility] Comment on above: Performed By: #### ERICK Jacques, PHOS #### [facility] [address] [place] [address] Dr. David Magana Basophils/100 WBC (Bld) 0.8 % Normal 0.2-2.0 [facility] Comment on above: Performed By: #### ERICK Jacques, PHOS #### [facility] [address] [place] [address] Dr. David Magana EO # 0.1 103/ul Normal 0.0-0.7 [facility] Comment on above: Performed By: #### ERICK Jacques, PHOS #### [facility] [address] [place] [address] Dr. David Magana Eosinophils/100 WBC (Bld) 0.6 % Critically low 0.9-7.0 [facility] Comment on above: Performed By: #### M ERICK Faith, PHOS #### [facility] [address] [place] [address] Dr. David Magana Erythrocyte distribution width (RBC) [Ratio] 13.4 % Normal 11.0-15.0 [facility] Comment on above: Performed By: #### M ERICK Faith, PHOS #### [facility] [address] [place] [address] Dr. David Magana Hematocrit (Bld) [Volume fraction] 43.2 % Normal 42.0-54.0 [facility] Comment on above: Performed By: #### ERICK Jacques, PHOS #### [facility] [address] [place] [address] Dr. David Magana Hemoglobin (Bld) [Mass/Vol] 14.2 g/dL Normal 14.0-18.0 [facility] Comment on above: Performed By: #### ERICK Jacques, PHOS #### [facility] [address] [place] [address] Dr. David Magana IG # 0.21 10e3/ul Critically high 0.00-0.03 [facility] Comment on above: Performed By: #### ERICK Jacques, PHOS #### [facility] [address] [place] [address] Dr. David Magana IG % 2.0 % Critically high 0.0-0.5 [facility] Comment on above: Performed By: #### ERICK Jacques, PHOS #### [facility] [address] [place] [address] Dr. David Magana LYMPH # 0.8 103/ul Critically low 1.2-3.8 [facility] Comment on above: Performed By: #### ERICK Jacques, PHOS #### [facility] [address] [place] [address] Dr. David Magana Lymphocytes/100 WBC (Bld) 7.7 % Critically low 20.5-60.0 [facility] Comment on above: Performed By: #### ERICK Jacques, PHOS #### [facility] [address] [place] [address] Dr. David Magana MANUAL DIFF REQ NO Normal [facility] Comment on above: Performed By: #### ERICK Jacques, PHOS #### [facility] [address] [place] [address] Dr. David Magana MCH (RBC) [Entitic mass] 33.2 pg Normal 25.9-34.0 [facility] Comment on above: Performed By: #### ERICK Jacques, PHOS #### [facility] [address] [place] [address] Dr. David Magana MCHC (RBC) [Mass/Vol] 32.9 g/dL Normal 29.9-35.2 [facility] Comment on above: Performed By: #### ERICK Jacques, PHOS #### [facility] [address] [place] [address] Dr. David Magana MCV (RBC) [Entitic vol] 100.9 fL Critically high 80.0-94.0 [facility] Comment on above: Performed By: #### ERICK Jacques, PHOS #### [facility] [address] [place] [address] Dr. David Magana MONO # 1.0 103/ul Critically high 0.3-0.8 [facility] Comment on above: Performed By: #### ERICK Jacques, PHOS #### [facility] [address] [place] [address] Dr. David Magana Monocytes/100 WBC (Bld) 10.0 % Normal 1.7-12.0 [facility] Comment on above: Performed By: #### M Marcell BMP, PHOS #### [facility] [address] [place] [address] Dr. David Magana NEUT # 8.1 103/ul Critically high 1.4-6.5 [facility] Comment on above: Performed By: #### M Marcell BMP, PHOS #### [facility] [address] [place] [address] Dr. David Magana Neutrophils/100 WBC (Bld) 78.9 % Critically high 43.0-75.0 [facility] Comment on above: Performed By: #### ERICK Jacques, PHOS #### [facility] [address] [place] [address] Dr. David Magana Platelet mean volume (Bld) [Entitic vol] 10.8 fL Normal 9.5-13.5 [facility] Comment on above: Performed By: #### ERICK Jacques, PHOS #### [facility] [address] [place] [address] Dr. David Magana PLT 172 103/ul Normal 150-450 [facility] Comment on above: Performed By: #### ERICK Jacques, PHOS #### [facility] [address] [place] [address] Dr. David Magana RBC 4.28 106/ul Critically low 4.70-6.10 [facility] Comment on above: Performed By: #### ERICK Jacques, PHOS #### [facility] [address] [place] [address] Dr. David Magana WBC 10.3 103/ul Normal 4.0-11.0 [facility] Comment on above: Performed By: #### ERICK Jacques, PHOS #### [facility] [address] [place] [address] Dr. David Magana CULTURE URINEon 07-20-2022 CULTURE [...] F Trimethoprim/Sulfameth oxazole >=320 R F Normal [facility] Comment on above: Performed By: #### ERICK Jacques, PHOS #### [facility] [address] [place] [address] Dr. David Magana PROF 14(COMP METB)on 022 Albumin [Mass/Vol] 2.6 g/dL Critically low 3.4-5.0 [facility] Comment on above: Performed By: #### A 1C #### [facility] [address] [place] [address] Dr. David Magana Albumin/Globulin [Mass ratio] 0.9 {ratio} Normal [facility] Comment on above: Performed By: #### A 1C #### [facility] [address] [place] [address] Dr. David Magana ALP [Catalytic activity/Vol] 48 U/L Normal 46-116 [facility] Comment on above: Performed By: #### A 1C #### [facility] [address] [place] [address] Dr. David Magana ALT [Catalytic activity/Vol] 27 U/L Normal 16-63 [facility] Comment on above: Performed By: #### A 1C #### [facility] [address] [place] [address] Dr. David Magana Anion gap [Moles/Vol] 13.4 mmol/L Normal [facility] Comment on above: Performed By: #### A 1C #### [facility] [address] [place] [address] Dr. David Magana AST [Catalytic activity/Vol] 22 U/L Normal 15-37 [facility] Comment on above: Performed By: #### A 1C #### [facility] [address] [place] [address] Dr. David Magana Bilirubin [Mass/Vol] 0.5 mg/dL Normal 0.2-1.0 [facility] Comment on above: Performed By: #### A 1C #### [facility] [address] [place] [address] Dr. David Magana Calcium [Mass/Vol] 8.3 mg/dL Critically low 8.5-10.1 [facility] Comment on above: Performed By: #### A 1C #### [facility] [address] [address] [address] David Magana Chloride [Moles/Vol] 105 mmol/L Normal 98-107 [facility] Comment on above: Performed By: #### A 1C #### [facility] [address] [address] [address] David Magana CO2 [Moles/Vol] 21.0 mmol/L Normal 21.0-32.0 [facility] Comment on above: Performed By: #### A 1C #### [facility] [address] [place] [address] Dr. David Magana Creatinine [Mass/Vol] 1.38 mg/dL Critically high 0.70-1.30 [facility] Comment on above: Performed By: #### A 1C #### [facility] [address] [place] [address] Dr. David Magana EGFR-AF [place]IZ[place] 60 mL/min/1.73m2 Normal >=60 [facility] Comment on above: Performed By: #### A 1C #### [facility] [address] [place] [address] Dr. David Magnaa EGFR-NON AF CITIZEN OF [place] 49 mL/min/1.73m2 Critically low >=60 [facility] Comment on above: Performed By: #### A 1C #### [facility] [address] [place] [address] Dr. David Magana Globulin (S) [Mass/Vol] 2.8 g/dL Normal [facility] Comment on above: Performed By: #### A 1C #### [facility] [address] [place] [address] Dr. David Magana Glucose [Mass/Vol] 156 mg/dL Critically high 74-106 [facility] Comment on above: Performed By: #### A 1C #### [facility] [address] [place] [address] Dr. David Magana Potassium [Moles/Vol] 4.4 mmol/L Normal 3.5-5.1 [facility] Comment on above: Performed By: #### A 1C #### [facility] [address] [place] [address] Dr. David Magana Protein [Mass/Vol] 5.4 g/dL Critically low 6.4-8.2 [facility] Comment on above: Performed By: #### A 1C #### [facility] [address] [place] [address] Dr. David Magana Sodium [Moles/Vol] 135 mmol/L Critically low 136-145 [facility] Comment on above: Performed By: #### A 1C #### [facility] [address] [place] [address] Dr. David Magana Urea nitrogen [Mass/Vol] 40.0 mg/dL Critically high 7.0-18.0 [facility] Comment on above: Performed By: #### A 1C #### [facility] [address] [place] [address] Dr. David Magana Urea nitrogen/Creatinine [Mass ratio] 29.0 mg/mg Normal [facility] Comment on above: Performed By: #### A 1C #### [facility] [address] [place] [address] Dr. David Magana BNPon 07-19-2022 Natriuretic peptide B (Bld) [Mass/Vol] 17613.0 pg/mL Critically high <=1,800.0 [facility] Comment on above: Performed By: #### C VDTB #### [facility] [address] [place] [address] Dr. David Magana CBC AUTO DIFFon 07-19-2022 BASO # 0.0 103/ul Normal 0.0-0.1 [facility] Comment on above: Performed By: #### C BC #### [facility] [address] [place] [address] Dr. David Magana Basophils/100 WBC (Bld) 0.3 % Normal 0.2-2.0 [facility] Comment on above: Performed By: #### C BC #### [facility] [address] [place] [address] Dr. David Magana EO # 0.0 103/ul Normal 0.0-0.7 [facility] Comment on above: Performed By: #### C BC #### [facility] [address] [address] [address] David Magana Eosinophils/100 WBC (Bld) 0.2 % Critically low 0.9-7.0 [facility] Comment on above: Performed By: #### C BC #### [facility] [address] [address] [address] David Magana Erythrocyte distribution width (RBC) [Ratio] 13.4 % Normal 11.0-15.0 [facility] Comment on above: Performed By: #### C BC #### [facility] [address] [place] [address] Dr. David Magana Hematocrit (Bld) [Volume fraction] 43.4 % Normal 42.0-54.0 [facility] Comment on above: Performed By: #### C BC #### [facility] [address] [place] [address] Dr. David Magana Hemoglobin (Bld) [Mass/Vol] 14.6 g/dL Normal 14.0-18.0 [facility] Comment on above: Performed By: #### C BC #### [facility] [address] [place] [address] Dr. David Magana IG # 0.18 10e3/ul Critically high 0.00-0.03 [facility] Comment on above: Performed By: #### C BC #### [facility] [address] [place] [address] Dr. David Magana IG % 1.5 % Critically high 0.0-0.5 [facility] Comment on above: Performed By: #### C BC #### [facility] [address] [place] [address] Dr. David Magana LYMPH # 0.8 103/ul Critically low 1.2-3.8 [facility] Comment on above: Performed By: #### C BC #### [facility] [address] [place] [address] Dr. David Magana Lymphocytes/100 WBC (Bld) 6.6 % Critically low 20.5-60.0 [facility] Comment on above: Performed By: #### C BC #### [facility] [address] [place] [address] Dr. David Magana MANUAL DIFF REQ NO Normal [facility] Comment on above: Performed By: #### C BC #### [facility] [address] [place] [address] Dr. David Magana MCH (RBC) [Entitic mass] 33.7 pg Normal 25.9-34.0 [facility] Comment on above: Performed By: #### C BC #### [facility] [address] [place] [address] Dr. David Magana MCHC (RBC) [Mass/Vol] 33.6 g/dL Normal 29.9-35.2 [facility] Comment on above: Performed By: #### C BC #### [facility] [address] [place] [address] Dr. David Magana MCV (RBC) [Entitic vol] 100.2 fL Critically high 80.0-94.0 [facility] Comment on above: Performed By: #### C BC #### [facility] [address] [place] [address] Dr. David Magana MONO # 1.1 103/ul Critically high 0.3-0.8 [facility] Comment on above: Performed By: #### C BC #### [facility] [address] [place] [address] Dr. David Magana Monocytes/100 WBC (Bld) 9.3 % Normal 1.7-12.0 [facility] Comment on above: Performed By: #### C BC #### [facility] [address] [place] [address] Dr. David Magana NEUT # 9.6 103/ul Critically high 1.4-6.5 [facility] Comment on above: Performed By: #### C BC #### [facility] [address] [place] [address] Dr. David Magana Neutrophils/100 WBC (Bld) 82.1 % Critically high 43.0-75.0 [facility] Comment on above: Performed By: #### C BC #### [facility] [address] [place] [address] Dr. David Magana Platelet mean volume (Bld) [Entitic vol] 10.8 fL Normal 9.5-13.5 [facility] Comment on above: Performed By: #### C BC #### [facility] [address] [address] [address] David Magana PLT 202 103/ul Normal 150-450 [facility] Comment on above: Performed By: #### C BC #### [facility] [address] [place] [address] Dr. David Magana RBC 4.33 106/ul Critically low 4.70-6.10 [facility] Comment on above: Performed By: #### C BC #### [facility] [address] [place] [address] Dr. David Magana WBC 11.7 103/ul Critically high 4.0-11.0 [facility] Comment on above: Performed By: #### C BC #### [facility] [address] [place] [address] Dr. David Magana PROF 14(COMP METB)on 022 Albumin [Mass/Vol] 3.4 g/dL Normal 3.4-5.0 [facility] Comment on above: Performed By: #### A 1C #### [facility] [address] [place] [address] Dr. David Magana Albumin/Globulin [Mass ratio] 1.1 {ratio} Normal [facility] Comment on above: Performed By: #### A 1C #### [facility] [address] [place] [address] Dr. David Magana ALP [Catalytic activity/Vol] 63 U/L Normal 46-116 [facility] Comment on above: Performed By: #### A 1C #### [facility] [address] [place] [address] Dr. David Magana ALT [Catalytic activity/Vol] 34 U/L Normal 16-63 [facility] Comment on above: Performed By: #### A 1C #### [facility] [address] [address] [address] David Magana Anion gap [Moles/Vol] 20.9 mmol/L Normal [facility] Comment on above: Performed By: #### A 1C #### [facility] [address] [place] [address] Dr. David Magana AST [Catalytic activity/Vol] 18 U/L Normal 15-37 [facility] Comment on above: Performed By: #### A 1C #### [facility] [address] [place] [address] Dr. David Magana Bilirubin [Mass/Vol] 0.5 mg/dL Normal 0.2-1.0 [facility] Comment on above: Performed By: #### A 1C #### [facility] [address] [place] [address] Dr. David Magana Calcium [Mass/Vol] 8.5 mg/dL Normal 8.5-10.1 [facility] Comment on above: Performed By: #### A 1C #### [facility] [address] [place] [address] Dr. David Magana Chloride [Moles/Vol] 99 mmol/L Normal 98-107 [facility] Comment on above: Performed By: #### A 1C #### [facility] [address] [place] [address] Dr. David Magana CO2 [Moles/Vol] 19.1 mmol/L Critically low 21.0-32.0 [facility] Comment on above: Performed By: #### A 1C #### [facility] [address] [place] [address] Dr. David Magana Creatinine [Mass/Vol] 1.80 mg/dL Critically high 0.70-1.30 [facility] Comment on above: Performed By: #### A 1C #### [facility] [address] [place] [address] Dr. David Magana EGFR-AF [place] 44 mL/min/1.73m2 Critically low >=60 [facility] Comment on above: Performed By: #### A 1C #### [facility] [address] [place] [address] Dr. David Magana EGFR-NON AF [place]IZEN OF [place] 36 mL/min/1.73m2 Critically low >=60 [facility] Comment on above: Performed By: #### A 1C #### [facility] [address] [place] [address] Dr. David Magana Globulin (S) [Mass/Vol] 3.2 g/dL Normal [facility] Comment on above: Performed By: #### A 1C #### [facility] [address] [address] [address] David Magana Glucose [Mass/Vol] 287 mg/dL Critically high 74-106 [facility] Comment on above: Performed By: #### A 1C #### [facility] [address] [place] [address] Dr. David Magana Potassium [Moles/Vol] 5.0 mmol/L Normal 3.5-5.1 [facility] Comment on above: Performed By: #### A 1C #### [facility] [address] [place] [address] Dr. David Magana Protein [Mass/Vol] 6.6 g/dL Normal 6.4-8.2 [facility] Comment on above: Performed By: #### A 1C #### [facility] [address] [place] [address] Dr. David Magana Sodium [Moles/Vol] 134 mmol/L Critically low 136-145 [facility] Comment on above: Performed By: #### A 1C #### [facility] [address] [place] [address] Dr. David Magana Urea nitrogen [Mass/Vol] 51.0 mg/dL Critically high 7.0-18.0 [facility] Comment on above: Performed By: #### A 1C #### [facility] [address] [place] [address] Dr. David Magana Urea nitrogen/Creatinine [Mass ratio] 28.3 mg/mg Normal [facility] Comment on above: Performed By: #### A 1C #### [facility] [address] [place] [address] Dr. David Magana [facility] 07-18-2022 02 MODE NASAL CANNULA Normal [facility] Comment on above: Performed By: #### A 1C #### [facility] [address] [place] [address] Dr. David Magana ALLENS TEST Positive [facility] Comment on above: Performed By: #### A 1C #### [facility] [address] [place] [address] Dr. David Magana Base excess Calc (Bld) [Moles/Vol] -9.0000 mmol/L Critically low -2.0-2.0 [facility] Comment on above: Performed By: #### A 1C #### [facility] [address] [place] [address] Dr. David Magana BIPAP PRESSURE [facility] Comment on above: Performed By: #### A 1C #### [facility] [address] [place] [address] Dr. David Magana CPAP [facility] Comment on above: Performed By: #### A 1C #### [facility] [address] [place] [address] Dr. David Magana FIO2 [facility] Comment on above: Performed By: #### A 1C #### [facility] [address] [place] [address] Dr. David Magana HCO3 (Bld) [Moles/Vol] 18.4 mmol/L Critically low 22.0-26.0 [facility] Comment on above: Performed By: #### A 1C #### [facility] [address] [place] [address] Dr. David Magana LPM 1.5 [facility] Comment on above: Performed By: #### A 1C #### [facility] [address] [place] [address] Dr. David Magana MINUTE VOLUME Normal [facility] Comment on above: Performed By: #### A 1C #### [facility] [address] [place] [address] Dr. David Magana Oxygen (Bld) [Partial pressure] 69.5 mm[Hg] Critically low 80.0-100.0 [facility] Comment on above: Performed By: #### A 1C #### [facility] [address] [place] [address] Dr. David Magana Oxygen saturation in Blood 94.2 % Critically low 95.0-100.0 [facility] Comment on above: Performed By: #### A 1C #### [facility] [address] [place] [address] Dr. David Magana PCO2 29.6 mmHg Critically low 35.0-45.0 [facility] Comment on above: Performed By: #### A 1C #### [facility] [address] [place] [address] Dr. David Magana [facility] Comment on above: Performed By: #### A 1C #### [facility] [address] [place] [address] Dr. David Magana pH (Bld) 7.355 [pH] Normal 7.350-7.450 [facility] Comment on above: Performed By: #### A 1C #### [facility] [address] [place] [address] Dr. David Magana [facility] Comment on above: Performed By: #### A 1C #### [facility] [address] [place] [address] Dr. David Magana [facility] Comment on above: Performed By: #### A 1C #### [facility] [address] [place] [address] Dr. David Magana PUNCTURE SITE [facility] Comment on above: Performed By: #### A 1C #### [facility] [address] [place] [address] Dr. David Magana RATE [facility] Comment on above: Performed By: #### A 1C #### [facility] [address] [place] [address] Dr. David Magana VENT MODE [facility] Comment on above: Performed By: #### A 1C #### [facility] [address] [place] [address] Dr. [facility] Comment on above: Performed By: #### A 1C #### [facility] [address] [place] [address] Dr. David Magana BNPon 07-18-2022 Natriuretic peptide B (Bld) [Mass/Vol] 7047.0 pg/mL Critically high <=1,800.0 [facility] Comment on above: Performed By: #### C VDTBH #### [facility] [address] [place] [address] Dr. David Magana CARDIAC BARRIE 3-6on 2 CK [Catalytic activity/Vol] 396 U/L Critically high 39-308 [facility] Comment on above: Performed By: #### M ERICK Faith, PHOS #### [facility] [address] [place] [address] Dr. David Magana CK.MB [Mass/Vol] 2.94 ng/mL Normal <=3.60 [facility] Comment on above: Performed By: #### ERICK Jacques, PHOS #### [facility] [address] [place] [address] Dr. David Magana HSTROP 11.1 pg/mL Normal 4.0-76.1 [facility] Comment on above: Result Comment: CUT- OFF POINTS HAVE BEEN ESTABLISHED BASED ON THE FOURTH UNIVERSAL DEFINITIONS OF MYOCARDIAL INFARCTION. THE UPPER REFERENCE LIMIT (URL) OF TROPONIN, DEFINED THE 99TH PERCENTILE OF cTnI DISTRIBUTION IN A REFERENCE POPULATION, HAS BEEN CONFIRMED THE DECISION THRESHOLD FOR PA DIAGNOSIS. Performed By: #### ERICK Jacques, PHOS #### [facility] [address] [place] [address] Dr. David Magana CK [Catalytic activity/Vol] 58 U/L Normal 39-308 [facility] Comment on above: Performed By: #### M ERICK Faith, PHOS #### [facility] [address] [place] [address] Dr. David Magana CK.MB [Mass/Vol] 1.71 ng/mL Normal <=3.60 [facility] Comment on above: Performed By: #### ERICK Jacques, PHOS #### [facility] [address] [address] [address] David Magana HSTROP 10.6 pg/mL Normal 4.0-76.1 [facility] Comment on above: Result Comment: CUT- OFF POINTS HAVE BEEN ESTABLISHED BASED ON THE FOURTH UNIVERSAL DEFINITIONS OF MYOCARDIAL INFARCTION. THE UPPER REFERENCE LIMIT (URL) OF TROPONIN, DEFINED THE 99TH PERCENTILE OF cTnI DISTRIBUTION IN A REFERENCE POPULATION, HAS BEEN CONFIRMED THE DECISION THRESHOLD FOR [place] DIAGNOSIS. Performed By: #### M G BMP, PHOS #### [facility] [address] [address] [address] David Magana CBC AUTO DIFFon 07-18-2022 BASO # 0.0 103/ul Normal 0.0-0.1 [facility] Comment on above: Performed By: #### M Marcell BMP, PHOS #### [facility] [address] [place] [address] Dr. David Magana Basophils/100 WBC (Bld) 0.2 % Normal 0.2-2.0 [facility] Comment on above: Performed By: #### M G BMP, PHOS #### [facility] [address] [address] [address] David Magana EO # 0.0 103/ul Normal 0.0-0.7 [facility] Comment on above: Performed By: #### M G BMP, PHOS #### [facility] [address] [address] [address] David Magana Eosinophils/100 WBC (Bld) 0.2 % Critically low 0.9-7.0 [facility] Comment on above: Performed By: #### M G, BMP, PHOS #### [facility] [address] [address] [address] David Magana Erythrocyte distribution width (RBC) [Ratio] 13.2 % Normal 11.0-15.0 [facility] Comment on above: Performed By: #### M G, BMP, PHOS #### [facility] [address] [address] [address] David Magana Hematocrit (Bld) [Volume fraction] 43.8 % Normal 42.0-54.0 [facility] Comment on above: Performed By: #### M ERICK Faith, PHOS #### [facility] [address] [place] [address] Dr. David Magana Hemoglobin (Bld) [Mass/Vol] 14.5 g/dL Normal 14.0-18.0 [facility] Comment on above: Performed By: #### ERICK Jacques, PHOS #### [facility] [address] [place] [address] Dr. David Magana IG # 0.15 10e3/ul Critically high 0.00-0.03 [facility] Comment on above: Performed By: #### ERICK Jacques, PHOS #### [facility] [address] [place] [address] Dr. David Magana IG % 1.3 % Critically high 0.0-0.5 [facility] Comment on above: Performed By: #### ERICK Jacques, PHOS #### [facility] [address] [place] [address] Dr. David Magana LYMPH # 0.5 103/ul Critically low 1.2-3.8 [facility] Comment on above: Performed By: #### ERICK Jacques, PHOS #### [facility] [address] [place] [address] Dr. aDvid Magana Lymphocytes/100 WBC (Bld) 3.8 % Critically low 20.5-60.0 [facility] Comment on above: Performed By: #### ERICK Jacques, PHOS #### [facility] [address] [place] [address] Dr. David Magana MANUAL DIFF REQ NO Normal [facility] Comment on above: Performed By: #### ERICK Jacques, PHOS #### [facility] [address] [place] [address] Dr. David Magana MCH (RBC) [Entitic mass] 32.7 pg Normal 25.9-34.0 [facility] Comment on above: Performed By: #### ERICK Jacques, PHOS #### [facility] [address] [place] [address] Dr. David Magana MCHC (RBC) [Mass/Vol] 33.1 g/dL Normal 29.9-35.2 [facility] Comment on above: Performed By: #### M G, BMP, PHOS #### [facility] [address] [place] [address] Dr. David Magana MCV (RBC) [Entitic vol] 98.9 fL Critically high 80.0-94.0 [facility] Comment on above: Performed By: #### M G, BMP, PHOS #### [facility] [address] [place] [address] Dr. David Magaan MONO # 0.7 103/ul Normal 0.3-0.8 [facility] Comment on above: Performed By: #### M G, BMP, PHOS #### [facility] [address] [place] [address] Dr. David Magana Monocytes/100 WBC (Bld) 5.7 % Normal 1.7-12.0 [facility] Comment on above: Performed By: #### M G, BMP, PHOS #### [facility] [address] [place] [address] Dr. David Magana NEUT # 10.4 103/ul Critically high 1.4-6.5 [facility] Comment on above: Performed By: #### M G, BMP, PHOS #### [facility] [address] [place] [address] Dr. David Magana Neutrophils/100 WBC (Bld) 88.8 % Critically high 43.0-75.0 [facility] Comment on above: Performed By: #### M G, BMP, PHOS #### [facility] [address] [place] [address] Dr. David Magana Platelet mean volume (Bld) [Entitic vol] 11.0 fL Normal 9.5-13.5 [facility] Comment on above: Performed By: #### M G, BMP, PHOS #### [facility] [address] [place] [address] Dr. David Magana PLT 198 103/ul Normal 150-450 [facility] Comment on above: Performed By: #### M ERICK Faith, PHOS #### [facility] [address] [place], [place] [address] Dr. David Magana RBC 4.43 106/ul Critically low 4.70-6.10 [facility] Comment on above: Performed By: #### M ERICK Faith, PHOS #### [facility] [address] [place], [place] [address] Dr. David Magana WBC 11.8 103/ul Critically high 4.0-11.0 [facility] Comment on above: Performed By: #### M ERICK Faith, PHOS #### [facility] [address] [place], [place] [address] HEAD WO CONon [...] FRANCISCO ZELAYA Date: 2022-07-18 05:12 Normal [facility] Covid-19 PCR (CVD[facility])on SARS-CoV-2 (COVID-19) RNA SULTANA+probe Ql (Unsp spec) Detected Critically abnormal NOT DETECTED [facility] Comment on above: Result Comment: This test is not yet approved or cleared by the [place] FDA. When there are no FDA-approved or cleared tests available, and other criteria are met, FDA can make tests available under an emergency access mechanism called an Emergency Use Authorization (EUA). The EUA for this test is supported by the Merch[employer]ise [employer] of Health and Human Service's declaration that [...] used). Performed By: #### C VDTBH #### [facility] [address] [place] [address] Dr. David Magana D-DIMERon 07-18-2022 D-DIMER 1.69 mg/L FEU Critically high <=0.59 [facility] Comment on above: Performed By: #### C BC #### [facility] [address] [place] [address] Dr. David Magana D-DIMER COMMENTS SEE BELOW Normal [facility] Comment on above: Result Comment: Incr [...] hospitalization. Performed By: #### C BC #### [facility] [address] [place] [address] Dr. David Magana POINT OF CARE GLUCOSEon Glucose [Mass/Vol] 329 mg/dL Critically high 74-106 [facility] Comment on above: Performed By: #### P OCGLUC #### [facility] [address] [place] [address] Dr. David Magana Glucose [Mass/Vol] 354 mg/dL Critically high 74-106 [facility] Comment on above: Performed By: #### P OCGLUC #### [facility] [address] [place] [address] Dr. David Magana PROF 14(COMP METB)on 022 Albumin [Mass/Vol] 3.6 g/dL Normal 3.4-5.0 [facility] Comment on above: Performed By: #### C VDTBH #### [facility] [address] [place] [address] Dr. David Magana Albumin/Globulin [Mass ratio] 1.1 {ratio} Normal [facility] Comment on above: Performed By: #### C VDTBH #### [facility] [address] [place] [address] [address] David Magana ALP [Catalytic activity/Vol] 67 U/L Normal 46-116 [facility] Comment on above: Performed By: #### C VDTBH #### [facility] [address] [place] [address] Dr. David Magana ALT [Catalytic activity/Vol] 33 U/L Normal 16-63 [facility] Comment on above: Performed By: #### C VDTBH #### [facility] [address] [place] [address] Dr. David Magana Anion gap [Moles/Vol] 23.5 mmol/L Normal [facility] Comment on above: Performed By: #### C VDTBH #### [facility] [address] [place] [address] Dr. David Magana AST [Catalytic activity/Vol] 13 U/L Critically low 15-37 [facility] Comment on above: Performed By: #### C VDTBH #### [facility] [address] [place] [address] Dr. David Magana Bilirubin [Mass/Vol] 0.6 mg/dL Normal 0.2-1.0 [facility] Comment on above: Performed By: #### C VDTBH #### [facility] [address] [place] [address] Dr. David Magana Calcium [Mass/Vol] 8.4 mg/dL Critically low 8.5-10.1 [facility] Comment on above: Performed By: #### C VDTBH #### [facility] [address] [place] [address] Dr. David Magana Chloride [Moles/Vol] 93 mmol/L Critically low 98-107 [facility] Comment on above: Performed By: #### C VDTBH #### [facility] [address] [place] [address] Dr. David Magana CO2 [Moles/Vol] 17.9 mmol/L Critically low 21.0-32.0 [facility] Comment on above: Performed By: #### C VDTBH #### [facility] [address] [place] [address] Dr. David Magana Creatinine [Mass/Vol] 2.15 mg/dL Critically high 0.70-1.30 [facility] Comment on above: Performed By: #### C VDTBH #### [facility] [address] [place] [address] Dr. David Magana EGFR-AF CITIZEN [place] 36 mL/min/1.73m2 Critically low >=60 [facility] Comment on above: Performed By: #### C VDTBH #### [facility] [address] [place] [address] Dr. David Magana EGFR-NON AF CITIZEN OF [place] 30 mL/min/1.73m2 Critically low >=60 [facility] Comment on above: Performed By: #### C VDTBH #### [facility] [address] [place] [address] Dr. David Magana Globulin (S) [Mass/Vol] 3.2 g/dL Normal [facility] Comment on above: Performed By: #### C VDTBH #### [facility] [address] [place] [address] Dr. David Magana Glucose [Mass/Vol] 345 mg/dL Critically high 74-106 [facility] Comment on above: Performed By: #### C VDTBH #### [facility] [address] [place] [address] Dr. David Magana Potassium [Moles/Vol] 5.4 mmol/L Critically high 3.5-5.1 [facility] Comment on above: Performed By: #### C VDTBH #### [facility] [address] [place] [address] Dr. David Magana Performed By: #### K #### [facility] [address] [place] [address] Dr. David Magana Protein [Mass/Vol] 6.8 g/dL Normal 6.4-8.2 [facility] Comment on above: Performed By: #### C VDTBH #### [facility] [address] [place] [address] Dr. David Magana Sodium [Moles/Vol] 129 mmol/L Critically low 136-145 [facility] Comment on above: Performed By: #### C VDTBH #### [facility] [address] [place] [address] Dr. David Magana Urea nitrogen [Mass/Vol] 65.0 mg/dL Critically high 7.0-18.0 [facility] Comment on above: Performed By: #### C VDTBH #### [facility] [address] [place] [address] Dr. David Magana Urea nitrogen/Creatinine [Mass ratio] 30.2 mg/mg Normal [facility] Comment on above: Performed By: #### C VDTBH #### [facility] [address] [place] [address] Dr. David Magana UA RANDOM W/MICROSCOPICon BACTERIA NONE SEEN Normal NONE SEEN [facility] Comment on above: Performed By: #### M G, BMP, PHOS #### [facility] [address] [place] [address] Dr. David Magana Bilirubin Ql (U) Negative Normal NEGATIVE [facility] Comment on above: Performed By: #### M G, BMP, PHOS #### [facility] [address] [place] [address] Dr. David Magana CAST NONE SEEN Normal NONE SEEN [facility] Comment on above: Performed By: #### M G, BMP, PHOS #### [facility] [address] [place] [address] Dr. David Magana Clarity (U) CLEAR Normal CLEAR [facility] Comment on above: Performed By: #### M G, BMP, PHOS #### [facility] [address] [place] [address] [address] David Magana Color (U) LT. YELLOW Normal YELLOW [facility] Comment on above: Performed By: #### M G, BMP, PHOS #### [facility] [address] [place] [address] [address] David Magana Crystals LM Nom (Urine sed) NONE SEEN Normal NONE SEEN [facility] Comment on above: Performed By: #### M G, BMP, PHOS #### [facility] [address] [place] [address] [address] David Magana Epithelial cells LM Ql (Urine sed) RARE Normal NONE SEEN /RARE [facility] Comment on above: Performed By: #### M Marcell, BMP, PHOS #### [facility] [address] [place] [address] Dr. David Magana Glucose Ql (U) 1000 mg/dl Abnormal NEGATIVE [facility] Comment on above: Performed By: #### M Marcell, BMP, PHOS #### [facility] [address] [place] [address] [address] David Magana Hemoglobin Ql (U) Negative Normal NEGATIVE [facility] Comment on above: Performed By: #### M G, BMP, PHOS #### [facility] [address] [place] [address] Dr. David Magana Ketones Ql (U) 15 mg/dl Abnormal NEGATIVE [facility] Comment on above: Performed By: #### M Marcell, BMP, PHOS #### [facility] [address] [place] [address] Dr. David Magana LEUKOCYTES Negative Normal NEGATIVE [facility] Comment on above: Performed By: #### M G, BMP, PHOS #### [facility] [address] [place] [address] Dr. David Magana MUCOUS NONE SEEN Normal NONE SEEN [facility] Comment on above: Performed By: #### M G, BMP, PHOS #### [facility] [address] [place] [address] [address] David Magana Nitrite Ql (U) Negative Normal NEGATIVE [facility] Comment on above: Performed By: #### M G, BMP, PHOS #### [facility] [address] [place] [address] Dr. David Magana pH (U) 5.5 [pH] Normal 5-9 [facility] Comment on above: Performed By: #### M G, BMP, PHOS #### [facility] [address] [place] [address] Dr. David Magana RBC NONE SEEN Abnormal 0-2 [facility] Comment on above: Performed By: #### M G, BMP, PHOS #### [facility] [address] [place] [address] Dr. David Magana SPEC GRAVITY <=1.005 Abnormal 1.005-<=1.02 5 [facility] Comment on above: Performed By: #### M G, BMP, PHOS #### [facility] [address] [place] [address] Dr. David Magana UA PROTEIN Negative Normal NEGATIVE/ TRACE [facility] Comment on above: Performed By: #### M G, BMP, PHOS #### [facility] [address] [place] [address] Dr. David Magana Urobilinogen Qn (U) 0.2 {Dionna'U}/dL Normal 0.2 - 1. 0 [facility] Comment on above: Performed By: #### M G, BMP, PHOS #### [facility] [address] [place] [address] Dr. David Magana WBC NONE SEEN Normal NONE SEEN [facility] Comment on above: Performed By: #### M G, BMP, PHOS #### [facility] [address] [place] [address] Dr. David Magana XR CHEST 1 Von [...] Yefri DWYER Date: 2022-07-18 00:09 Normal [facility] CARDIAC BARRIE ADMITon 022 CK [Catalytic activity/Vol] 61 U/L Normal 39-308 [facility] Comment on above: Performed By: #### C BC #### [facility] [address] [place] [address] [address] David Magana CK.MB [Mass/Vol] 1.84 ng/mL Normal <=3.60 [facility] Comment on above: Performed By: #### C BC #### [facility] [address] [place] [address] Dr. David Magana HSTROP 9.4 pg/mL Normal 4.0-76.1 [facility] Comment on above: Result Comment: CUT- OFF POINTS HAVE BEEN ESTABLISHED BASED ON THE FOURTH UNIVERSAL DEFINITIONS OF MYOCARDIAL INFARCTION. THE UPPER REFERENCE LIMIT (URL) OF TROPONIN, DEFINED THE 99TH PERCENTILE OF cTnI DISTRIBUTION IN A REFERENCE POPULATION, HAS BEEN CONFIRMED THE DECISION THRESHOLD FOR PA DIAGNOSIS. Performed By: #### C BC #### [facility] [address] [place] [address] [address] David Magana DUSTIN 533 ng/mL Critically high 16-96 [facility] Comment on above: Performed By: #### C BC #### [facility] [address] [place] [address] [address] David Magana CBC AUTO DIFFon 07-17-2022 BASO # 0.0 103/ul Normal 0.0-0.1 [facility] Comment on above: Performed By: #### M G, BMP, PHOS #### [facility] [address] [place] [address] [address] David Magana Basophils/100 WBC (Bld) 0.2 % Normal 0.2-2.0 [facility] Comment on above: Performed By: #### M G, BMP, PHOS #### [facility] [address] [place] [address] [address] David Magana EO # 0.0 103/ul Normal 0.0-0.7 [facility] Comment on above: Performed By: #### M ERICK Faith, PHOS #### [facility] [address] [place] [address] Dr. David Magana Eosinophils/100 WBC (Bld) 0.1 % Critically low 0.9-7.0 [facility] Comment on above: Performed By: #### ERICK Jacques, PHOS #### [facility] [address] [place] [address] Dr. David Magana Erythrocyte distribution width (RBC) [Ratio] 13.2 % Normal 11.0-15.0 [facility] Comment on above: Performed By: #### ERICK Jacques, PHOS #### [facility] [address] [place] [address] Dr. David Magana Hematocrit (Bld) [Volume fraction] 43.1 % Normal 42.0-54.0 [facility] Comment on above: Performed By: #### ERICK Jacques, PHOS #### [facility] [address] [place] [address] Dr. David Magana Hemoglobin (Bld) [Mass/Vol] 14.5 g/dL Normal 14.0-18.0 [facility] Comment on above: Performed By: #### ERICK Jacques, PHOS #### [facility] [address] [place] [address] Dr. David Magana IG # 0.14 10e3/ul Critically high 0.00-0.03 [facility] Comment on above: Performed By: #### ERICK Jacques, PHOS #### [facility] [address] [place] [address] Dr. David Magana IG % 1.2 % Critically high 0.0-0.5 [facility] Comment on above: Performed By: #### M ERICK Faith, PHOS #### [facility] [address] [place] [address] Dr. David Magana LYMPH # 0.4 103/ul Critically low 1.2-3.8 [facility] Comment on above: Performed By: #### M ERICK Faith, PHOS #### [facility] [address] [place] [address] Dr. David Magana Lymphocytes/100 WBC (Bld) 3.4 % Critically low 20.5-60.0 [facility] Comment on above: Performed By: #### M G, BMP, PHOS #### [facility] [address] [place] [address] Dr. David Magana MANUAL DIFF REQ NO Normal [facility] Comment on above: Performed By: #### M G, BMP, PHOS #### [facility] [address] [place] [address] Dr. David Magana MCH (RBC) [Entitic mass] 33.3 pg Normal 25.9-34.0 [facility] Comment on above: Performed By: #### M G, BMP, PHOS #### [facility] [address] [place] [address] Dr. David Magana MCHC (RBC) [Mass/Vol] 33.6 g/dL Normal 29.9-35.2 [facility] Comment on above: Performed By: #### M G, BMP, PHOS #### [facility] [address] [place] [address] Dr. David Magana MCV (RBC) [Entitic vol] 98.9 fL Critically high 80.0-94.0 [facility] Comment on above: Performed By: #### M G, BMP, PHOS #### [facility] [address] [place] [address] Dr. David Magana MONO # 1.1 103/ul Critically high 0.3-0.8 [facility] Comment on above: Performed By: #### M G, BMP, PHOS #### [facility] [address] [place] [address] Dr. David Magana Monocytes/100 WBC (Bld) 8.9 % Normal 1.7-12.0 [facility] Comment on above: Performed By: #### M G, BMP, PHOS #### [facility] [address] [place] [address] Dr. David Magana NEUT # 10.3 103/ul Critically high 1.4-6.5 [facility] Comment on above: Performed By: #### M ERICK Faith, PHOS #### [facility] [address] [place] [address] Dr. David Magana Neutrophils/100 WBC (Bld) 86.2 % Critically high 43.0-75.0 [facility] Comment on above: Performed By: #### ERICK Jacques, PHOS #### [facility] [address] [place] [address] Dr. David Magana Platelet mean volume (Bld) [Entitic vol] 11.1 fL Normal 9.5-13.5 [facility] Comment on above: Performed By: #### ERICK Jacques, PHOS #### [facility] [address] [place] [address] Dr. David Magana PLT 229 103/ul Normal 150-450 [facility] Comment on above: Performed By: #### ERICK Jacques, PHOS #### [facility] [address] [place] [address] Dr. David Magana RBC 4.36 106/ul Critically low 4.70-6.10 [facility] Comment on above: Performed By: #### ERICK Jacques, PHOS #### [facility] [address] [place] [address] Dr. David Magana WBC 11.9 103/ul Critically high 4.0-11.0 [facility] Comment on above: Performed By: #### ERICK Jacques, PHOS #### [facility] [address] [place] [address] Dr. David Magana PROF CHEM 8 (BAS METB)on Anion gap [Moles/Vol] 26.5 mmol/L Normal [facility] Comment on above: Performed By: #### C BC #### [facility] [address] [place] [address] Dr. David Magana Calcium [Mass/Vol] 8.2 mg/dL Critically low 8.5-10.1 [facility] Comment on above: Performed By: #### C BC #### [facility] [address] [place] [address] [address] David Magana Chloride [Moles/Vol] 89 mmol/L Critically low 98-107 [facility] Comment on above: Performed By: #### C BC #### [facility] [address] [place] [address] [address] David Magana CO2 [Moles/Vol] 14.5 mmol/L Critically low 21.0-32.0 [facility] Comment on above: Performed By: #### C BC #### [facility] [address] [place] [address] [address] David Magana Creatinine [Mass/Vol] 2.78 mg/dL Critically high 0.70-1.30 [facility] Comment on above: Performed By: #### C BC #### [facility] [address] [place] [address] [address] David Magana EGFR-AF [place] 27 mL/min/1.73m2 Critically low >=60 [facility] Comment on above: Performed By: #### C BC #### [facility] [address] [place] [address] [address] David Magana EGFR-NON AF CITIZEN OF [place] 22 mL/min/1.73m2 Critically low >=60 [facility] Comment on above: Performed By: #### C BC #### [facility] [address] [place] [address] [address] David Magana Glucose [Mass/Vol] 442 mg/dL Critically high 74-106 [facility] Comment on above: Performed By: #### C BC #### [facility] [address] [place] [address] [address] David Magana Potassium [Moles/Vol] 6.0 mmol/L Critically high 3.5-5.1 [facility] Comment on above: Performed By: #### C BC #### [facility] [address] [place] [address] [address] David Magana Sodium [Moles/Vol] 124 mmol/L Critically low 136-145 [facility] Comment on above: Performed By: #### C BC #### [facility] [address] [place], [place] [address] Dr. David Magana Urea nitrogen [Mass/Vol] 73.0 mg/dL Critically high 7.0-18.0 [facility] Comment on above: Performed By: #### C BC #### [facility] [address] [place], [place] [address] Dr. David Magana Urea nitrogen/Creatinine [Mass ratio] 26.3 mg/mg Normal [facility] Comment on above: Performed By: #### C BC #### [facility] [address] [place], [place] [address] Dr. David Magana [facility]on 06-16 SARS-CoV-2 (COVID-19) RNA SULTANA+probe Ql (Unsp spec) Detected Critically abnormal NOT DETECTED [facility] Comment on above: Result Comment: This test is not yet approved or cleared by the [place] FDA. When there are no FDA-approved or cleared tests available, and other criteria are met, FDA can make tests available under an emergency access mechanism called an Emergency Use Authorization (EUA). The EUA for this test is supported by the Mer[employer] of Health and Human Service's (HHS's) declaration [...] By: #### M G, BMP, PHOS #### [facility] [address] [id number] David Magana ECHOCARDIO M/2D COMPLETEon 0 07-01-2022 ECHOCARDIO M/2D COMPLETE Patient: NADIR BETH Exam Date: 07/01/2022 : 1940 Gender:M Ordering : DR CLARIBEL CISNEROS M.D. Admission #: [id number] Family : DR VAN YOUSSEF . Order #: [id number] CLICK HERE TO VIEW EXAM ECHOCARDIOGRAM REPORT [...] M.D. on 07/01/2022 at 16:27 Normal [facility] Covid-19 PCR ([facility])on SARS-CoV-2 (COVID-19) RNA SULTANA+probe Ql (Unsp spec) Not detected Normal NOT DETECTED [facility] Comment on above: Result Comment: When [...] for this test is supported by the [employer] of Health and Human Service's declaration that [...] used). Performed By: #### C VDTB #### [facility] [address] [place] [address] Dr. David Magana CREATININE URINEon 2 URINE CREAT 14.70 mg/dL Critically low 20.00-300.00 [facility] Comment on above: Performed By: #### M ERICK Faith, PHOS #### [facility] [address] [place] [address] Dr. David Magana GLYCOHEMOGLOBIN A1Con 2021 ADA RECOMMENDATION SEE BELOW Normal [facility] Comment on above: Result Comment: ADA RECOMMENDED LIMIT 4.0 - 6.0 ADA THERAPEUTIC TARGET < 7.0 ACTION SUGGESTED > 7.0 Performed By: #### A 1C #### [facility] [address] [place] [address] Dr. David Magana Glucose [Mass/Vol] 209 mg/dL Normal [facility] Comment on above: Performed By: #### A 1C #### [facility] [address] [place] [address] Dr. David Magana HbA1c (Bld) [Mass fraction] 8.9 % Critically high 4.5-6.2 [facility] Comment on above: Performed By: #### A 1C #### [facility] [address] [place] [address] Dr. David Magana MAGNESIUMon 06-08-2022 Magnesium [Mass/Vol] 2.3 mg/dL Normal 1.8-2.4 [facility] Comment on above: Performed By: #### M ERICK Faith, PHOS #### [facility] [address] [place] [address] Dr. David Magana PHOSPHORUSon 06-08-2022 Phosphate [Mass/Vol] 3.5 mg/dL Normal 2.6-4.7 [facility] Comment on above: Performed By: #### ERICK Jacques, PHOS #### [facility] [address] [place] [address] Dr. David Magana PROF CHEM 8 (BAS METB)on Anion gap [Moles/Vol] 10.6 mmol/L Normal [facility] Comment on above: Performed By: #### M G, BMP, PHOS #### [facility] [address] [place] [address] [address] David Magana Calcium [Mass/Vol] 9.2 mg/dL Normal 8.5-10.1 [facility] Comment on above: Performed By: #### M G, BMP, PHOS #### [facility] [address] [address] [address] David Magana Chloride [Moles/Vol] 102 mmol/L Normal 98-107 [facility] Comment on above: Performed By: #### M Marcell, BMP, PHOS #### [facility] [address] [address] [address] David Magana CO2 [Moles/Vol] 30.1 mmol/L Normal 21.0-32.0 [facility] Comment on above: Performed By: #### M Marcell, BMP, PHOS #### [facility] [address] [address] [address] David Magana Creatinine [Mass/Vol] 1.70 mg/dL Critically high 0.70-1.30 [facility] Comment on above: Performed By: #### M G, BMP, PHOS #### [facility] [address] [address] [address] David Magana EGFR-AF CITIZEN OF [place] 47 mL/min/1.73m2 Critically low >=60 [facility] Comment on above: Performed By: #### M G, BMP, PHOS #### [facility] [address] [address] [address] David Magana EGFR-NON AF CITIZEN OF [place] 39 mL/min/1.73m2 Critically low >=60 [facility] Comment on above: Performed By: #### M G, BMP, PHOS #### [facility] [address] [address] [address] David Magana Glucose [Mass/Vol] 197 mg/dL Critically high 74-106 [facility] Comment on above: Performed By: #### M ERICK Faith, PHOS #### [facility] [address] [place] [address] Dr. David Magana Potassium [Moles/Vol] 4.7 mmol/L Normal 3.5-5.1 [facility] Comment on above: Performed By: #### M Marcell BMP, PHOS #### [facility] [address] [place] [address] Dr. David Magana Sodium [Moles/Vol] 138 mmol/L Normal 136-145 [facility] Comment on above: Performed By: #### M ERICK Faith, PHOS #### [facility] [address] [place] [address] Dr. David Magana Urea nitrogen [Mass/Vol] 25.0 mg/dL Critically high 7.0-18.0 [facility] Comment on above: Performed By: #### ERICK Jacques, PHOS #### [facility] [address] [place] [address] Dr. David Magana Urea nitrogen/Creatinine [Mass ratio] 14.7 mg/mg Normal [facility] Comment on above: Performed By: #### M ERICK Faith, PHOS #### [facility] [address] [place] [address] Dr. David Magana PROTEIN RAND URINEon 022 UR PROT <5.0 Normal <=11.9 [facility] Comment on above: Performed By: #### C REAU, PROTU #### [facility] [address] [place] [address] Dr. David Magana BILIRUBIN CONJUGATED (DIRECT )on 04-28-2022 BILI, CONJUGATED 0.1 mg/dL Normal 0.0-0.2 [facility] Comment on above: Performed By: #### P OCGLUC #### [facility] [address] [place] [address] Dr. David Magana CBC AUTO DIFFon 04-28-2022 BASO # 0.1 103/ul Normal 0.0-0.1 [facility] Comment on above: Performed By: #### C VDTBH #### [facility] [address] [place] [address] Dr. David Magana Basophils/100 WBC (Bld) 0.7 % Normal 0.2-2.0 [facility] Comment on above: Performed By: #### C VDTBH #### [facility] [address] [place] [address] Dr. David Magana EO # 0.5 103/ul Normal 0.0-0.7 [facility] Comment on above: Performed By: #### C VDTBH #### [facility] [address] [place] [address] Dr. David Magana Eosinophils/100 WBC (Bld) 6.7 % Normal 0.9-7.0 [facility] Comment on above: Performed By: #### C VDTBH #### [facility] [address] [place] [address] Dr. David Magana Erythrocyte distribution width (RBC) [Ratio] 13.6 % Normal 11.0-15.0 [facility] Comment on above: Performed By: #### C VDTBH #### [facility] [address] [place] [address] Dr. David Magana Hematocrit (Bld) [Volume fraction] 45.9 % Normal 42.0-54.0 [facility] Comment on above: Performed By: #### C VDTBH #### [facility] [address] [place] [address] Dr. David Magana Hemoglobin (Bld) [Mass/Vol] 14.9 g/dL Normal 14.0-18.0 [facility] Comment on above: Performed By: #### C VDTBH #### [facility] [address] [place] [address] Dr. David Magana IG # 0.03 10e3/ul Normal 0.00-0.03 [facility] Comment on above: Performed By: #### C VDTBH #### [facility] [address] [place] [address] Dr. Daivd Magana IG % 0.4 % Normal 0.0-0.5 [facility] Comment on above: Performed By: #### C VDTBH #### [facility] [address] [address] [address] David Magana LYMPH # 1.0 103/ul Critically low 1.2-3.8 [facility] Comment on above: Performed By: #### C VDTBH #### [facility] [address] [address] [address] David Magana Lymphocytes/100 WBC (Bld) 13.4 % Critically low 20.5-60.0 [facility] Comment on above: Performed By: #### C VDTBH #### [facility] [address] [address] [address] David Magana MANUAL DIFF REQ NO Normal [facility] Comment on above: Performed By: #### C VDTBH #### [facility] [address] [address] [address] David Magana MCH (RBC) [Entitic mass] 33.8 pg Normal 25.9-34.0 [facility] Comment on above: Performed By: #### C VDTBH #### [facility] [address] [address] [address] David Magana MCHC (RBC) [Mass/Vol] 32.5 g/dL Normal 29.9-35.2 [facility] Comment on above: Performed By: #### C VDTBH #### [facility] [address] [address] [address] David Magana MCV (RBC) [Entitic vol] 104.1 fL Critically high 80.0-94.0 [facility] Comment on above: Performed By: #### C VDTBH #### [facility] [address] [address] [address] David Magana MONO # 0.8 103/ul Normal 0.3-0.8 [facility] Comment on above: Performed By: #### C VDTBH #### [facility] [address] [address] [address] David Magana Monocytes/100 WBC (Bld) 10.2 % Normal 1.7-12.0 [facility] Comment on above: Performed By: #### C VDTBH #### [facility] [address] [address] [address] David Magana NEUT # 5.1 103/ul Normal 1.4-6.5 [facility] Comment on above: Performed By: #### C VDTBH #### [facility] [address] [address] [address] David Magana Neutrophils/100 WBC (Bld) 68.6 % Normal 43.0-75.0 [facility] Comment on above: Performed By: #### C VDTBH #### [facility] [address] [place] [address] Dr. David Magana Platelet mean volume (Bld) [Entitic vol] 11.3 fL Normal 9.5-13.5 [facility] Comment on above: Performed By: #### C VDTBH #### [facility] [address] [place] [address] Dr. David Magana PLT 185 103/ul Normal 150-450 [facility] Comment on above: Performed By: #### C VDTBH #### [facility] [address] [place] [address] Dr. David Magana RBC 4.41 106/ul Critically low 4.70-6.10 [facility] Comment on above: Performed By: #### C VDTBH #### [facility] [address] [place] [address] Dr. David Magana WBC 7.5 103/ul Normal 4.0-11.0 [facility] Comment on above: Performed By: #### C VDTBH #### [facility] [address] [address] [address] David Magana FREE T3on 04-28-2022 FREE T3 2.17 pg/mlL Critically low 2.18-3.98 [facility] Comment on above: Performed By: #### P OCGLUC #### [facility] [address] [place] [address] Dr. David Magana LIPID PROFILEon 04-28-2022 CHOL-HDL RATIO NORM SEE BELOW Normal [facility] Comment on above: Result Comment: 3.3 - 4.4 LOW RISK 4.4 - 7.1 AVERAGE RISK 7.1 - 11.0 MODERATE RISK >11.0 HIGH RISK Performed By: #### P OCGLUC #### [facility] [address] [address] [address] David Magana Cholesterol [Mass/Vol] 234 mg/dL Critically high <=200 [facility] Comment on above: Performed By: #### P OCGLUC #### [facility] [address] [address] [address] David Magana Cholesterol in HDL [Mass/Vol] 58 mg/dL Normal 40-60 [facility] Comment on above: Performed By: #### P OCGLUC #### [facility] [address] [address] [address] David Magana Cholesterol in LDL [Mass/Vol] 129.0 mg/dL Normal [facility] Comment on above: Performed By: #### P OCGLUC #### [facility] [address] [address] [address] David Magana Cholesterol.total/Cho lesterol in HDL [Mass ratio] 4.0 {ratio} Normal [facility] Comment on above: Performed By: #### P OCGLUC #### [facility] [address] [address] [address] David Magana HDL NORMAL > or = 60 mg/dl - LO W CARDIOVASCULAR RISK <40 mg/dl - HIGH CARDIOVASCULAR RISK Normal [facility] Comment on above: Performed By: #### P OCGLUC #### [facility] [address] [address] [address] David Magana LDL CALC NORMAL SEE BELOW Normal [facility] Comment on above: Result Comment: <100 mg/dl OPTIMAL 100 - 129 mg/dl NEAR OR ABOVE OPTIMAL 130 - 159 mg/dl BORDERLINE HIGH 160 - 189 mg/dl HIGH >190 mg/dl VERY HIGH Performed By: #### P OCGLUC #### [facility] [address] [address] [address] David Magana Triglyceride [Mass/Vol] 235 mg/dL Critically high <=150 [facility] Comment on above: Performed By: #### P OCGLUC #### [facility] [address] [address] [address] David Magana VLDL CALC 47.0 mg/dL Normal [facility] Comment on above: Performed By: #### P OCGLUC #### [facility] [address] [place] [address] Dr. David Magana PROF 14(COMP METB)on 022 Albumin [Mass/Vol] 3.2 g/dL Critically low 3.4-5.0 [facility] Comment on above: Performed By: #### P OCGLUC #### [facility] [address] [place] [address] Dr. David Magana Albumin/Globulin [Mass ratio] 0.9 {ratio} Normal [facility] Comment on above: Performed By: #### P OCGLUC #### [facility] [address] [place] [address] Dr. David Magana ALP [Catalytic activity/Vol] 77 U/L Normal 46-116 [facility] Comment on above: Performed By: #### P OCGLUC #### [facility] [address] [place] [address] Dr. David Magana ALT [Catalytic activity/Vol] 24 U/L Normal 16-63 [facility] Comment on above: Performed By: #### P OCGLUC #### [facility] [address] [place] [address] Dr. David Magana Anion gap [Moles/Vol] 13.1 mmol/L Normal [facility] Comment on above: Performed By: #### P OCGLUC #### [facility] [address] [address] [address] David Magana AST [Catalytic activity/Vol] 13 U/L Critically low 15-37 [facility] Comment on above: Performed By: #### P OCGLUC #### [facility] [address] [place] [address] Dr. David Magana Bilirubin [Mass/Vol] 0.3 mg/dL Normal 0.2-1.0 [facility] Comment on above: Performed By: #### P OCGLUC #### [facility] [address] [address] [address] David Magana Calcium [Mass/Vol] 8.8 mg/dL Normal 8.5-10.1 [facility] Comment on above: Performed By: #### P OCGLUC #### [facility] [address] [address] [address] David Magana Chloride [Moles/Vol] 106 mmol/L Normal 98-107 [facility] Comment on above: Performed By: #### P OCGLUC #### [facility] [address] [address] [address] David Magana CO2 [Moles/Vol] 27.5 mmol/L Normal 21.0-32.0 [facility] Comment on above: Performed By: #### P OCGLUC #### [facility] [address] [address] [address] David Magana Creatinine [Mass/Vol] 1.62 mg/dL Critically high 0.70-1.30 [facility] Comment on above: Performed By: #### P OCGLUC #### [facility] [address] [address] [address] David Magana EGFR-AF [place]IZ[place] 50 mL/min/1.73m2 Critically low >=60 [facility] Comment on above: Performed By: #### P OCGLUC #### [facility] [address] [address] [address] David Magana EGFR-NON AF CITIZEN OF [place] 41 mL/min/1.73m2 Critically low >=60 [facility] Comment on above: Performed By: #### P OCGLUC #### [facility] [address] [address] [address] David Magana Globulin (S) [Mass/Vol] 3.4 g/dL Normal [facility] Comment on above: Performed By: #### P OCGLUC #### [facility] [address] [address] [address] David Magana Glucose [Mass/Vol] 206 mg/dL Critically high 74-106 [facility] Comment on above: Performed By: #### P OCGLUC #### [facility] [address] [address] [address] David Magana Potassium [Moles/Vol] 4.6 mmol/L Normal 3.5-5.1 [facility] Comment on above: Performed By: #### P OCGLUC #### [facility] [address] [address] [address] David Magana Protein [Mass/Vol] 6.6 g/dL Normal 6.4-8.2 [facility] Comment on above: Performed By: #### P OCGLUC #### [facility] [address] [address] [address] David Magana Sodium [Moles/Vol] 142 mmol/L Normal 136-145 [facility] Comment on above: Performed By: #### P OCGLUC #### [facility] [address] [address] [address] David Magana Urea nitrogen [Mass/Vol] 26.0 mg/dL Critically high 7.0-18.0 [facility] Comment on above: Performed By: #### P OCGLUC #### [facility] [address] [address] [address] David Magana Urea nitrogen/Creatinine [Mass ratio] 16.0 mg/mg Normal [facility] Comment on above: Performed By: #### P OCGLUC #### [facility] [address] [address] [address] David Magana T4on 04-28-2022 T4 [Mass/Vol] 7.70 ug/dL Normal 4.50-12.10 [facility] Comment on above: Performed By: #### P OCGLUC #### [facility] [address] [place] [address] Dr. David Magana TSHon 04-28-2022 TSH 2.187 uIU/mL Normal 0.358-3.740 [facility] Comment on above: Performed By: #### P OCGLUC #### [facility] [address] [place] [address] Dr. David Magana TSH RANGE SEE BELOW Normal [facility] Comment on above: Result Comment: <0.3 4 UIU/ml HYPERTHYROID 0.34-5.60 UIU/ml EUTHYROID >5.60 UIU/ml HYPOTHYROID Performed By: #### P OCGLUC #### [facility] [address] [address] [address] David Magana Vital Signs Date Time Vital Sign Value Performing Clinician Facility 09-14-2024 08:19-0400 Body height 182.9 cm Blaise Chicas DPM Work Phone: [facility] 09-14-2024 08:19-0400 Body mass index (BMI) [Ratio] 39.2 kg/m2 Blaise Chicas DPM Work Phone: [facility] 09-14-2024 08:19-0400 Body weight 131.09 kg Blaise Chicas DPM Work Phone: [facility] 09-14-2024 08:19-0400 Diastolic blood pressure 79 mm[Hg] Blaise Chicas DPM Work Phone: [facility] 09-14-2024 08:19-0400 Heart rate 81 /min Blaise Chicas DPM Work Phone: [facility] 09-14-2024 08:19-0400 Systolic blood pressure 128 mm[Hg] Blaise Chicas DPM Work Phone: [facility] 08-08-2024 10:25-0400 Blood Pressure Location MARQUIS NKANSAH-AMANKRA [facility] 08-08-2024 10:25-0400 Diastolic blood pressure 82 mm[Hg] MARQUIS NKANSAH-AMANKRA [facility] 08-08-2024 10:25-0400 Systolic blood pressure 140 mm[Hg] MARQUIS NKANSAH-AMANKRA [facility] 10-14-2023 14:33-0500 Diastolic blood pressure 70 mm[Hg] Nereyda Patricia [facility] 10-14-2023 14:33-0500 Mean blood pressure 93 mm[Hg] Nereyda Patricia [facility] 10-14-2023 14:33-0500 Systolic blood pressure 138 mm[Hg] Nereyda Patricia [facility] 10-14-2023 14:18-0500 Blood Pressure Location Nereyda Patricia [facility] 10-14-2023 14:18-0500 Body temperature 97.88 [degF] Nereyda Patricia [facility] 10-14-2023 14:18-0500 Diastolic blood pressure 73 mm[Hg] Nereyda Patricia [facility] 10-14-2023 14:18-0500 Heart rate 91 /min Nereyda Patricia [facility] 10-14-2023 14:18-0500 Systolic blood pressure 143 mm[Hg] Nereyda Patricia [facility] 10-01-2023 12:13-0500 Diastolic blood pressure 66 mm[Hg] Nereyda Patricia [facility] 10-01-2023 12:13-0500 Mean blood pressure 104 mm[Hg] Nereyda Patricia [facility] 10-01-2023 12:13-0500 Systolic blood pressure 179 mm[Hg] Nereyda Patricia [facility] 10-01-2023 12:10-0500 Blood Pressure Location Nereyda Patricia [facility] 10-01-2023 12:10-0500 Body temperature 98.42 [degF] Nereyda Patricia [facility] 10-01-2023 12:10-0500 Diastolic blood pressure 77 mm[Hg] Nereyda Patricia [facility] 10-01-2023 12:10-0500 Heart rate 81 /min Nereyda Patricia [facility] 10-01-2023 12:10-0500 Respiratory rate 14 /min Nereyda Patricia [facility] 10-01-2023 12:10-0500 Systolic blood pressure 168 mm[Hg] Nereyda Patricia [facility] 06-10-2023 10:43-0400 Diastolic blood pressure 64 mm[Hg] Nereyda Patricia [facility] 06-10-2023 10:43-0400 Heart rate 76 /min Nereyda Patricia [facility] 06-10-2023 10:43-0400 Respiratory rate 16 /min Nereyda Patricia [facility] 06-10-2023 10:43-0400 SaO2% (BldA) [Mass fraction] 95 % Nereyda Patricia [facility] 06-10-2023 10:43-0400 Systolic blood pressure 121 mm[Hg] Nereyda Patricia [facility] 04-13-2023 14:19-0400 Diastolic blood pressure 70 mm[Hg] Nereyda Patricia [facility] 04-13-2023 14:19-0400 Mean blood pressure 95 mm[Hg] Nereyda Patricia [facility] 04-13-2023 14:19-0400 Systolic blood pressure 146 mm[Hg] Nereyda Patricia [facility] 04-13-2023 14:15-0400 Blood Pressure Location Nereyda Patricia [facility] 04-13-2023 14:15-0400 Body temperature 97.7 [degF] Nereyda Patricia [facility] 04-13-2023 14:15-0400 Diastolic blood pressure 87 mm[Hg] Nereyda Patricia [facility] 04-13-2023 14:15-0400 Heart rate 70 /min Nereyda Patricia [facility] 04-13-2023 14:15-0400 Systolic blood pressure 150 mm[Hg] Nereyda Patricia [facility] 06-09-2022 10:02-0400 Body temperature 96.98 [degF] Nereyda Patricia [facility] 06-09-2022 10:02-0400 Diastolic blood pressure 75 mm[Hg] Nereyda Patricia [facility] 06-09-2022 10:02-0400 Heart rate 72 /min Nereyda Patricia [facility] 06-09-2022 10:02-0400 SaO2% (BldA) [Mass fraction] 97 % Nereyda Patricia [facility] 06-09-2022 10:02-0400 Systolic blood pressure 139 mm[Hg] Nereyda Gomez [facility] 05-11-2022 11:30-0400 Diastolic blood pressure 102 mm[Hg] Bender SALAM [facility] 05-11-2022 11:30-0400 Heart rate 86 /min Bender SALAM [facility] 05-11-2022 11:30-0400 Respiratory rate 15 /min Bender SALAM [facility] 05-11-2022 11:30-0400 SaO2% (BldA) [Mass fraction] 95 % Bender SALAM [facility] 05-11-2022 11:30-0400 Systolic blood pressure 172 mm[Hg] Bender SALAM [facility] 05-11-2022 11:15-0400 Diastolic blood pressure 88 mm[Hg] Bender SALAM [facility] 05-11-2022 11:15-0400 Heart rate 86 /min Bender SALAM [facility] 05-11-2022 11:15-0400 Respiratory rate 18 /min Bender SALAM [facility] 05-11-2022 11:15-0400 SaO2% (BldA) [Mass fraction] 97 % Bender SALAM [facility] 05-11-2022 11:15-0400 Systolic blood pressure 170 mm[Hg] Bender SALAM [facility] 05-11-2022 11:10-0400 Diastolic blood pressure 108 mm[Hg] Bender SALAM [facility] 05-11-2022 11:10-0400 Heart rate 85 /min Bender SALAM [facility] 05-11-2022 11:10-0400 Respiratory rate 14 /min Bender SALAM [facility] 05-11-2022 11:10-0400 SaO2% (BldA) [Mass fraction] 97 % Bender SALAM [facility] 05-11-2022 11:10-0400 Systolic blood pressure 157 mm[Hg] Bender SALAM [facility] 05-11-2022 11:02-0400 Body temperature 97.34 [degF] Bender SALAM [facility] 05-11-2022 10:27-0400 Blood Pressure Location Bender SALAM [facility] 05-11-2022 10:23-0400 Blood Pressure Location Bender SALAM [facility] 05-11-2022 10:23-0400 Body temperature 98.24 [degF] Bender SALAM [facility] 03-31-2022 09:53-0400 Blood Pressure Location Nereyda Patricia [facility] 03-31-2022 09:53-0400 Body temperature 97.7 [degF] Nereyda Gomez [facility] 03-31-2022 09:53-0400 Diastolic blood pressure 72 mm[Hg] Nereyda Gomez [facility] 03-31-2022 09:53-0400 Heart rate 73 /min eNreyda Gomez [facility] 03-31-2022 09:53-0400 SaO2% (BldA) [Mass fraction] 96 % Nereyda Gomez [facility] 03-31-2022 09:53-0400 Systolic blood pressure 129 mm[Hg] Neeryda Gomez [facility] Encounters Encounter Date Encounter Type Care Provider Facility Start: 12-04-2024 ambulatory MD MARQUIS LOUISE Facility: [facility] Start: 10-25-2024 End: 10-25-2024 ambulatory MD MARQUIS LOUISE Facility:[facility] Start: 10-23-2024 End: 10-23-2024 ambulatory MD MARQUIS LOUISE [place] Start: 10-23-2024 End: 10-23-2024 Patient encounter procedure MARQUIS LOUISE [facility] Start: 10-02-2024 End: 10-02-2024 [facility] Start: 09-25-2024 End: 09-25-2024 ambulatory MD MARQUIS LOUISE [facility] Start: 09-25-2024 End: 09-25-2024 Patient encounter procedure MARQUIS LOUISE [facility] Start: 09-14-2024 End: 09-14-2024 Deangelo Chicas DPM Work Phone: [facility] Start: 09-14-2024 End: 09-14-2024 Bamboo flowsheet Blaise Chicas DPM Work Phone: [facility] Start: 09-14-2024 End: 09-14-2024 Patient encounter procedure Blaise Cara Dao DPM Work Phone: [facility] Comment on above: Verruca plantaris (P rimary Dx); Foot pain, right; Diabetes mellitus due to underlying condition with diabetic polyneuropathy, unspecified whether chcf insulin use ([facility]); Pain due to onychomycosis of [...] Available Start: 08-22-2024 ambulatory Nereyda Gomez Facility :[facility] Start: 08-17-2024 ambulatory MD MARQUIS LOUISE Facility: [facility] Start: 08-14-2024 End: 08-17-2024 Telephone encounter Barrie Montoya MD Work Phone: [facility] Start: 08-08-2024 End: 08-08-2024 ambulatory MD MARQUIS LOUISE Facility:[facility] Start: 08-08-2024 End: 08-08-2024 Patient encounter procedure MARQUIS LOUISE [facility] Start: 08-03-2024 End: 08-03-2024 ambulatory BLAISE [...] Available Start: 07-05-2024 End: 07-05-2024 ambulatory JEFF [facility] Start: 06-07-2024 End: 06-07-2024 ambulatory RUTHIE [facility] Start: 06-05-2024 End: 06-05-2024 ambulatory [facility] Start: 06-01-2024 End: 06-01-2024 ambulatory BLAISE A BROWN Not Available Start: 04-20-2024 End: 04-20-2024 ambulatory BLAISE A BROWN Not Available Start: 03-03-2024 End: 03-03-2024 ambulatory [facility] Start: 02-10-2024 End: 02-10-2024 ambulatory BLAISE A BROWN Not Available Start: 02-02-2024 ambulatory Nereyda A Patricia Facili ty:[facility] Start: 01-11-2024 End: 01-11-2024 ambulatory BARRIE Gil BEBubba Not Available Start: 12-09-2023 ambulatory Nereyda A Patricia Facili ty:[facility] Start: 12-02-2023 End: 12-02-2023 ambulatory BLAISE A BROWN Not Available Start: 11-17-2023 End: 11-17-2023 ambulatory DANA [facility] Start: 10-14-2023 End: 10-14-2023 Patient encounter procedure Nereyda Gomez [facility] Start: 10-01-2023 End: 10-01-2023 Patient encounter procedure Nereyda Gomez [facility] Start: 10-01-2023 End: 10-01-2023 Patient encounter procedure Nereyda Donatoz [facility] Start: 09-17-2023 End: 09-17-2023 ambulatory [facility] Start: 09-13-2023 End: 09-13-2023 Patient encounter procedure Nereyda Gomez [facility] Start: 08-31-2023 End: 08-31-2023 ambulatory [facility] Start: 07-21-2023 End: 07-21-2023 ambulatory [facility] Start: 06-10-2023 End: 06-10-2023 Patient encounter procedure Nereyda Gomez [facility] Start: 04-15-2023 End: 04-15-2023 Lab Drop off Nereyda A Patricia [facility] Start: 04-13-2023 End: 04-13-2023 Patient encounter procedure Nereydabruce Joyametz [facility] Start: 03-24-2023 End: 03-25-2023 ambulatory [...] Patient encounter procedure Nereyda Gomez [facility] Start: 06-08-2022 End: 06-09-2022 ambulatory GAMALIEL DALEY Facility:[facility]1 Start: 05-11-2022 End: 05-11-2022 Patient encounter procedure Napoleon NOVA [facility] Start: 04-28-2022 End: 04-29-[address] VAN YOUSSEF . Facility:[facility] Start: 03-31-2022 End: 03-31-2022 Patient encounter procedure Nereyda Gomez [facility] Start: 2019 End: 02-07-2019 Patient encounter procedure DEFAULT PHYSICIAN Facility:[facility] Procedures Date Procedure Procedure Detail [...] DERM [address] [place] [address] Rodney Joy MD [address] [place] [address] [facility] Start: 11-30-2024 End: 11-30-2024 Patient encounter procedure 11/30/2024 8:40 AM EST Office Visit [facility] [address] [facility] [address] [place] [address] Blaise Chicas DPM [address] [facility] [address] [place] [address] [facility] Start: 10-10-2024 End: 10-10-2024 Patient encounter procedure 10/10/2024 10:45 AM EST Office Visit [facility] NE[facility] B [address] [place] [address] Barrie Montoya MD [address] [facility] [address] [place], [place] [id number] [facility] Start: 09-14-2024 End: 09-14-2024 Patient encounter procedure [facility] Comment on above: Verruca plantaris (P rimary Dx); Foot pain, right; Diabetes mellitus due to underlying condition with diabetic polyneuropathy, unspecified whether chcf insulin use ([facility]); Pain due to onychomycosis of toenails of both feet Start: 08-24-2024 End: 08-24-2024 Patient encounter procedure [facility] Comment on above: Arrived Start: 08-03-2024 End: 08-03-2024 Patient encounter procedure 08/03/2024 8:50 AM EDT Office Visit [facility] [address] [facility] [address] [place] [address] Blaise Chicas DPM [address] [facility] [address] [place] [address] [facility] Start: 08-01-2024 End: 08-01-2024 Patient encounter procedure 08/01/2024 11:30 AM EDT Office Visit [facility] B [address] [facility] [address] [place] [address] Barrie Montoya MD [address] [facility] [address] [place], [place] [id number] Arrived [facility] Comment on above: Arrived Start: 07-16-2024 Influenza vaccination Influenza Vacc ine (#1) [facility] Immunizations Immunization Date Immunization Notes Care Provider Fa [facility] 08-20-2023 influenza virus vaccine, unspecified formulation Barrie Montoya MD Work Phone: [facility] 10-21-2022 SARS-CoV-2 (COVID-19 ) mRNAMUL.[id number] Nereyda Gomez [facility] Comment on above: Result Comment: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 Date:10/26/2024 09:30:00 AM Scheduled Provider: Location[facility] Appointment Type:URO Nurse Visit Appointment Date:12/04/2024 08:40:00 AM Scheduled Provider:MARQUIS LOUISE MD Location:[facility] Appointment Type:URO Office Visit Future Scheduled Tests Laboratory* CBC w/ Auto Diff 10/01/23 * Comprehensive Metabolic Panel 10/01/23 * Thyroid Stimulating Hormone 10/01/23 [facility] evaluation note* Diagnosis Melanocytic nevus of trunk- [...] underlying condition with diabetic polyneuropathy, unspecified whether chcf insulin use (CMS/HCC) Pain due to onychomycosis of toenails of both feet [facility] Narrative No data available for this section [facility] Hospital Discharge instructions No data available for this section [facility] No data available for this section [facility] [place] Summary Purpose Family History No Family History [...] section and content) DATE CREATED AUTHOR 02/09/2019 [facility] DATE CREATED AUTHOR AUTHOR'S ORGANIZ ATION 03/28/2023 [facility] DATE CREATED AUTHOR AUTHOR'S ORGANIZ ATION 07/12/2024 [facility] DATE CREATED AUTHOR AUTHOR'S ORGANIZ ATION 09/15/2024 [facility] EPIC DATE CREATED AUTHOR AUTHOR'S ORGANIZ ATION 10/26/2024 [facility] Care Team (unrecognized sect ion and content) Personnel Name: Van Youssef MD Address: Address: [address] [place] [address] Deputy Assessor Relationship Specialty Start Date End Date Van Youssef MD [address] [place] [address] [phone] PCP - General Family Medicine 12/02/23 Deputy Assessor Relationship Specialty Start Date End Date Van Youssef MD [address] [place] [address] [phone] PCP - General Family Medicine 12/02/23 Deputy Assessor Relationship Specialty Start Date End Date Van Youssef MD [address] [facility] [place] [phone] PCP - General Family Medicine 12/02/23 Deputy Assessor Relationship Specialty Start Date End Date Van Youssef MD [address] [facility] [place] [phone] PCP - General Family Medicine 12/02/23 Deputy Assessor Relationship Specialty Start Date End Date Van Youssef MD [address] [facility] [place] [phone] PCP - General Family Medicine 12/02/23 Deputy Assessor Relationship Specialty Start Date End Date Van Youssef MD [address] [facility] [place] [phone] PCP - General Family Medicine 12/02/23 Reason [...] BE BASED ON THE PRIMARY CLINICAL RECORDS. [facility] [employer] [facility]. provides no warranty or guarantee of the accuracy or completeness of information in this document.
[2024-10-29] MEDS: SODIUM CHLORIDE IRRIG SOLUTION 3,000 ML 3000 ML IRR ×28 (01:15→23:28)
[2024-10-29] MEDS: FENTANYL CITRATE/PF 100 MCG/2 ML VIAL 50 MCG IV (01:28)
[2024-10-29] MEDS: ACETAMINOPHEN 325 MG TABLET 650 MG PO ×2 (02:14→22:30)
[2024-10-29] MEDS: PHENAZOPYRIDINE 100 MG TABLET PO ×3 (02:14→20:38)
[2024-10-29] MEDS: TAMSULOSIN HCL 0.4 MG CAPSULE PO ×2 (02:14→20:44)
[2024-10-29] MEDS: DIPHENHYDRAMINE HCL 25 MG CAPSULE PO (02:14)
[2024-10-29 06:25] LABS: Hematocrit 38.5 % (42.0-54.0); Hemoglobin 12.7 g/dL (14.0-18.0); Mean Corpuscular Hemoglobin 34.1 pg (25.9-34.0); Mean Corpuscular Volume 103.5 fL (80.0-94.0); Mean Platelet Volume 11.6 fL (9.5-13.5); Platelet Count 211 10^3/uL (150-450); Red Blood Count 3.72 10^6/uL (4.70-6.10); Red Cell Distribution Width 14.1 % (11.0-15.0); White Blood Count 15.4 10^3/uL (4.0-11.0)
[2024-10-29 06:34] LABS: Anion Gap 18.6; BUN Creatinine Ratio 16.2; Calcium 8.4 mg/dL (8.5-10.1); Chloride 102 mmol/L (98-107); Estimated GFR (African America 42 (>=60 mL/min/1.73m^2); Estimated GFR (Non-African Ame 35 (>=60 mL/min/1.73m^2); Glucose 281 mg/dL (74-106); Potassium 4.6 mmol/L (3.5-5.1); Sodium 142 mmol/L (136-145)
--- NOTE | 2024-10-29 07:51 | P.HP_ITS ---
HPI H&P: HPI History of Present Illness Chief complaint: hematuria urinary retention Narrative: Patient is a 84 y.o white male with past medical history of NIDDM, HTN, AFib (taking Eliquis), Depression with Anxiety, Iron def anemia, and unspecified chronic heart failure who underwent a UroLift as outpatient, last week. He was seen in the Urology office on Wednesday and the catheter was removed. He has been voiding good until yesterday when he presented to the ER. Weiner catheter wa s placed, he returned home, but then catheter clotted off and he returned to the ER a second time. This time patient was admitted and started on CBI per Dr. Rivas recommendations. Eliquis has been held. Monitor H&H. This morning patient denies pain. Feels better with the CBI. Opioid HPI Opioid Management Most Recent Pain and Opioid Data: Last Pain Scale 8 10/29/24 01:28 10/29/24 Last Pain Assessment 10/29/24 09:44 Last MAR Pain Assessment 10/29/24 03:07 Last ORT Total Score 0 10/29/24 00:41 10/29/24 Last ORT Risk Category Low Risk 10/29/24 00:41 10/29/24 Review of Systems ROS Narrative ROS: a complete review of systems were reviewed with patient and are positive as below or listed in History of Chief Complaint. General: no fever, chills, night sweats Head: no headache, trauma, visual changes, nausea or vomiting Skin: no reported rashes, itching or sores Eyes: no blurriness of vision Ears: no reported hearing loss, vertigo, earache, or tinnitus Throat: no sore throat, hoarseness, swelling of neck, or tongue pain Heart: no chest pain Lungs: no shortness of breath or cough GI: no diarrhea or vomiting/nausea Urinary:urinary urgency, frequency but could not void, blood in urine Neuro: no numbness or tingling HEM: no bleeding issues or bruising ENDO: no thyroid problems Psych: no anxiety or depression PFSH [facility] Medical History (Updated 10/29/24 @ 07:58 by Preeti Fuentes DO) Atrial fibrillation ?I48.91 - Unspecified atrial fibrillation (ICD-10) Lethargy ?R53.83 - Other fatigue (ICD-10) Difficulty with speech ?R47.9 - Unspecified speech disturbances (ICD-10) AMS (altered mental status) ?R41.82 - Altered mental status, unspecified (ICD-10) Balanitis ?N48.1 - Balanitis (ICD-10) Pulmonary edema ?J81.1 - Chronic pulmonary edema (ICD-10) Dyspnea ?R06.00 - Dyspnea, unspecified (ICD-10) Congestive heart failure ?I50.9 - Heart failure, unspecified (ICD-10) Heart failure ?I50.9 - Heart failure, unspecified (ICD-10) Neuropathy ?G62.9 - Polyneuropathy, unspecified (ICD-10) Occasional tremors ?R25.1 - Tremor, unspecified (ICD-10) History of diverticulosis ?Z87.19 - Personal history of other diseases of the digestive system (ICD-10) History of sleep apnea ?Z86.69 - Personal history of other diseases of the nervous system and sense organs (ICD-10) Diabetes ?E11.9 - Type 2 diabetes mellitus without complications (ICD-10) History of hypertension ?Z86.79 - Personal history of other diseases of the circulatory system (ICD- 10) History of gastroesophageal reflux (GERD) ?Z87.19 - Personal history of other diseases of the digestive system (ICD-10) History of asthma ?Z87.09 - Personal history of other diseases of the respiratory system (ICD- 10) Surgical History History of cardiac catheterization ?Z98.890 - Other specified postprocedural states (ICD-10) History of cholecystectomy ?Z90.49 - Acquired absence of other specified parts of digestive tract (ICD- 10) Family History Father Family history of myocardial infarction Family history of CHF (congestive heart failure) Family history of hypertension Mother Family history of cancer Grandmother Family history of diabetes mellitus Social History Within the past year, how often did you have a drink containing alcohol: 2-4 times a month Smoking status: Former smoker Non-prescribed substance use: denies use Highest level of school completed/degree received: 9th grade Little interest or pleasure in doing things: not at all Feeling down, depressed, or hopeless: not at all Do you think of yourself as: straight/heterosexual Gender Identity: male Meds Home Medications and Allergies Home Medications ?Medication ?Instructions ?Recorded ?Confirmed ?Type ACETAMINOPHEN PM 1 tab PO BEDTIME 05/31/23 10/29/24 History Vitamin B-Complex 1 tab PO .NOON 05/31/23 10/29/24 History acyclovir 400 mg tablet 400 mg PO Q12H 05/31/23 10/29/24 History alogliptin 25 mg tablet 25 mg PO DAILY 05/31/23 10/29/24 History apixaban 2.5 mg tablet 2.5 mg PO BID 05/31/23 10/29/24 History aspirin 81 mg tablet,delayed 81 mg PO DAILY 05/31/23 10/29/24 History release (Adult Low Dose Aspirin) cholecalciferol (vitamin D3) 50 2,000 unit PO DAILY 05/31/23 10/29/24 History mcg (2,000 unit) tablet (Thera-D) dicyclomine 10 mg capsule 10 mg PO QID PRN abdominal pain 05/31/23 10/29/24 History empagliflozin 25 mg tablet 25 mg PO DAILY 05/31/23 10/29/24 History (Jardiance) ezetimibe 10 mg tablet 10 mg PO DAILY 05/31/23 10/29/24 History ferrous sulfate 325 mg (65 mg 325 mg PO BID 05/31/23 10/29/24 History iron) tablet furosemide 40 mg tablet 40 mg PO Q12H 05/31/23 10/29/24 History glimepiride 4 mg tablet 8 mg PO DAILY 05/31/23 10/29/24 History labetalol 300 mg tablet 300 mg PO Q12H 05/31/23 10/29/24 History magnesium See Rx Instructions PO BID 05/31/23 10/29/24 History metoclopramide HCl 5 mg tablet 5 mg PO BEDTIME 05/31/23 10/29/24 History tamsulosin 0.4 mg capsule 0.4 mg PO Q24H 05/31/23 10/29/24 History alprazolam 0.25 mg tablet 0.25 mg PO BID 08/16/24 10/29/24 History dextromethorphan-guaifenesin 30 1 tab PO Q12H 08/16/24 10/29/24 History mg-600 mg tablet extended [id number] hr duloxetine 20 mg capsule,delayed 20 mg PO .QD 08/16/24 10/29/24 History release escitalopram oxalate 5 mg tablet 5 mg PO .QD 08/16/24 10/29/24 History pioglitazone 45 mg tablet (Actos) 45 mg PO DAILY 08/16/24 10/29/24 History potassium chloride 20 mEq 40 meq PO .QD 08/16/24 10/29/24 History tablet,extended release(part/cryst) clonidine HCl 0.1 mg tablet 0.2 mg (2 x 0.1 mg) PO Q12H #120 08/17/24 10/29/24 Rx tabs phenazopyridine 100 mg tablet 100 mg PO Q8H PRN pain 10/29/24 10/29/24 History Allergies Allergy/AdvReac Type Severity Reaction Status Date / Time nitroglycerin Allergy Intermediate Hypotension Verified 10/28/24 19:28 Iodinated Contrast Media AdvReac Intermediate renal Verified 10/28/24 19:28 problem Exam Narrative Exam Narrative: General: Patient is alert, and oriented to person Skin: no visible rashes, or ulcers Head: atraumatic, acephalic Eyes: PERRLA, no nystagmus present, conjunctiva clear, no scleral icterus Ears: diminished gross auditory acuity Heart: irregular rhythm, no murmurs/rubs/gallops Lungs: no audible wheezes, crackles and normal breath sounds all lung forrest Abdomen: Normal audible bowel sounds, no distension, No palpable masses, no organomegaly, no rebound/guarding/ or rigidity Musculoskeletal: no swelling bilateral lower extremities Neuro: CN II-X grossly intact Constitutional Vital Signs, click to edit/add: Last Vital Signs Temp 97.4 F L 10/29/24 07:26 Pulse 87 10/29/24 07:26 Resp 20 10/29/24 07:26 BP 120/66 10/29/24 07:26 Pulse Ox 93 L 10/29/24 07:26 O2 Del Method Room Air 10/29/24 07:26 Results Labs Labs: Short CBC 10/28/24 10/29/24 Range/Units 20:20 06:18 WBC 7.5 15.4 H (4.0-11.0) 10^3/uL Hgb 13.9 L 12.7 L (14.0-18.0) g/dL Hct 40.6 L 38.5 L (42.0-54.0) % Plt Count 194 211 (150-450) 10^3/uL BMP 10/28/24 10/29/24 20:20 06:18 Sodium 137 142 Potassium 4.1 4.6 Chloride 103 102 Carbon Dioxide 27.2 26.0 BUN 24.0 H 30.0 H Creatinine 1.78 H 1.85 H Glucose 262 H 281 H Calcium 8.7 8.4 L Liver Function 10/28/24 Range/Units 20:20 Total Bilirubin 0.7 (0.2-1.0) mg/dL AST 20 (15-37) U/L ALT 19 (16-63) U/L Alkaline Phosphatase 91 (46-116) U/L Albumin 2.8 L (3.4-5.0) g/dL Assessment and Plan Assessment and Plan (1) Acute urinary obstruction: Assessment and Plan: continue with weiner catheter (2) Hematuria: Assessment and Plan: treat with Rocephin, Urine culture pending. Qualifiers: Hematuria type: gross Qualified Code(s): R31.0 - Gross hematuria (3) Clot retention of urine: Assessment and Plan: Per urology request, CBI started, urology evaluation/consult. Hold Eliquis, monitor H&H, continue flomax. (4) Congestive heart failure: Assessment and Plan: continue home medications, no acute exacerbation. Qualifiers: Heart failure chronicity: chronic Heart failure type: unspecified Qualified Code(s): I50.9 - Heart failure, unspecified (5) Diabetes: Assessment and Plan: Hold oral hypoglycemics. SSI if needed Qualifiers: Diabetes mellitus complication status: with hyperglycemia Diabetes mellitus biology internship insulin use: without biology internship use Diabetes mellitus type: type 2 Qualified Code(s): E11.65 - Type 2 diabetes mellitus with hyperglycemia (6) History of hypertension: Assessment and Plan: resume home meds. (7) Atrial fibrillation: Assessment and Plan: resume home meds, hold eliquis. Qualifiers: Atrial fibrillation type: paroxysmal Qualified Code(s): I48.0 - Paroxysmal atrial fibrillation Plan Patient is a full code Hold Eliquis with acute hematuria Patient is in observation status, Continue with CBI, urology evaluation Urinary Catheter Management Urinary Catheter Management 3-way Urethral: Cath placed during this visit: yes, but has since been removed by the nurse Insertion date: 10/28/24 Insertion time: 19:35 Removal date: 10/28/24 Removal time: 20:30
[2024-10-29 08:14] LABS: Glucometer 223 mg/dL (74-106)
[2024-10-29] MEDS: INSULIN ASPART 300 UNIT/3 ML PEN SUBQ ×4 (08:24→22:31)
[2024-10-29] MEDS: GUAIFENESIN DM 600-30 MG 12 HR TAB 1 TAB PO ×2 (08:51→20:35)
[2024-10-29] MEDS: EZETIMIBE 10 MG TABLET PO (08:51)
[2024-10-29] MEDS: ALPRAZOLAM 0.25 MG TABLET PO ×2 (08:51→20:36)
[2024-10-29] MEDS: MAGNESIUM OXIDE 400 MG TABLET 800 MG PO ×2 (08:51→20:35)
[2024-10-29] MEDS: FERROUS SULFATE 325 MG TABLET PO ×2 (08:51→20:35)
[2024-10-29] MEDS: DULOXETINE HCL 20 MG CAPSULE.DR PO (08:51)
[2024-10-29] MEDS: CLONIDINE HCL 0.1 MG TABLET 0.2 MG PO ×2 (08:51→20:35)
[2024-10-29] MEDS: CHOLECALCIFEROL (VITAMIN D3) 25 MCG/1,000 UNITS TABLET 50 MCG PO (08:51)
[2024-10-29] MEDS: LABETALOL HCL 200 MG TABLET 300 MG PO ×2 (08:52→20:34)
[2024-10-29] MEDS: ESCITALOPRAM 10 MG TABLET 5 MG PO (08:52)
[2024-10-29] MEDS: ACYCLOVIR 200 MG CAPSULE 400 MG PO ×2 (09:06→20:35)
[2024-10-29] MEDS: HYDROXYZINE PAMOATE 25 MG CAPSULE PO ×2 (10:02→22:31)
[2024-10-29 11:03] LABS: Glucometer 249 mg/dL (74-106)
--- NOTE | 2024-10-29 14:26 | P.URCN_ITS ---
Urology - CN: HPI Date of Consult Consult date: 10/29/24 Requesting Physician: Preeti Fuentes DO Primary Care Provider: Pj Sung MD Consult Narrative Reason for consult IM: Gross hematuria Narrative: 84-year-old male s/p Urolift implantation 10/23/[address] Ac Naqvi. Weiner catheter was removed 10/25/24, per family. Patient developed gross hematuria with clot retention 10/28/24 and presented to ER. Weiner was placed in ER and he was discharged home. He then returned to ER late last night with clot obstruction of catheter and severe suprapubic pain and feelings of bladder distension. No fevers. No n/v. Urology is consulted for evaluation. Eliquis (afib) was resumed on POD#2. cc:: CC: Preeti Fuentes DO Review of Systems ROS Constitutional: Reports: fatigue Eyes: Denies: eye discomfort Ears, nose, mouth, and throat: Denies: throat pain Cardiovascular: Denies: chest pain Respiratory: Denies: shortness of breath Gastrointestinal: Reports: abdominal pain Genitourinary: Reports: blood in urine Musculoskeletal: Denies: back pain Integumentary/Breast: Denies: rash Neurological: Reports: confusion [facility] Medical History (Updated 10/29/24 @ 14:38 by Mejia Hoffmann MD) Atrial fibrillation ?I48.91 - Unspecified atrial fibrillation (ICD-10) Lethargy ?R53.83 - Other fatigue (ICD-10) Difficulty with speech ?R47.9 - Unspecified speech disturbances (ICD-10) AMS (altered mental status) ?R41.82 - Altered mental status, unspecified (ICD-10) Balanitis ?N48.1 - Balanitis (ICD-10) Pulmonary edema ?J81.1 - Chronic pulmonary edema (ICD-10) Dyspnea ?R06.00 - Dyspnea, unspecified (ICD-10) Congestive heart failure ?I50.9 - Heart failure, unspecified (ICD-10) Heart failure ?I50.9 - Heart failure, unspecified (ICD-10) Neuropathy ?G62.9 - Polyneuropathy, unspecified (ICD-10) Occasional tremors ?R25.1 - Tremor, unspecified (ICD-10) History of diverticulosis ?Z87.19 - Personal history of other diseases of the digestive system (ICD-10) History of sleep apnea ?Z86.69 - Personal history of other diseases of the nervous system and sense organs (ICD-10) Diabetes ?E11.9 - Type 2 diabetes mellitus without complications (ICD-10) History of hypertension ?Z86.79 - Personal history of other diseases of the circulatory system (ICD- 10) History of gastroesophageal reflux (GERD) ?Z87.19 - Personal history of other diseases of the digestive system (ICD-10) History of asthma ?Z87.09 - Personal history of other diseases of the respiratory system (ICD- 10) Surgical History History of cardiac catheterization ?Z98.890 - Other specified postprocedural states (ICD-10) History of cholecystectomy ?Z90.49 - Acquired absence of other specified parts of digestive tract (ICD- 10) Family History Father Family history of myocardial infarction Family history of CHF (congestive heart failure) Family history of hypertension Mother Family history of cancer Grandmother Family history of diabetes mellitus Social History Within the past year, how often did you have a drink containing alcohol: 2-4 times a month Smoking status: Former smoker Non-prescribed substance use: denies use Highest level of school completed/degree received: 9th grade Little interest or pleasure in doing things: not at all Feeling down, depressed, or hopeless: not at all Do you think of yourself as: straight/heterosexual Gender Identity: male Meds Home Medications and Allergies Home Medications ?Medication ?Instructions ?Recorded ?Confirmed ?Type ACETAMINOPHEN PM 1 tab PO BEDTIME 05/31/23 10/29/24 History Vitamin B-Complex 1 tab PO .NOON 05/31/23 10/29/24 History acyclovir 400 mg tablet 400 mg PO Q12H 05/31/23 10/29/24 History alogliptin 25 mg tablet 25 mg PO DAILY 05/31/23 10/29/24 History apixaban 2.5 mg tablet 2.5 mg PO BID 05/31/23 10/29/24 History aspirin 81 mg tablet,delayed 81 mg PO DAILY 05/31/23 10/29/24 History release (Adult Low Dose Aspirin) cholecalciferol (vitamin D3) 50 2,000 unit PO DAILY 05/31/23 10/29/24 History mcg (2,000 unit) tablet (Thera-D) dicyclomine 10 mg capsule 10 mg PO QID PRN abdominal pain 05/31/23 10/29/24 History empagliflozin 25 mg tablet 25 mg PO DAILY 05/31/23 10/29/24 History (Jardiance) ezetimibe 10 mg tablet 10 mg PO DAILY 05/31/23 10/29/24 History ferrous sulfate 325 mg (65 mg 325 mg PO BID 05/31/23 10/29/24 History iron) tablet furosemide 40 mg tablet 40 mg PO Q12H 05/31/23 10/29/24 History glimepiride 4 mg tablet 8 mg PO DAILY 05/31/23 10/29/24 History labetalol 300 mg tablet 300 mg PO Q12H 05/31/23 10/29/24 History magnesium See Rx Instructions PO BID 05/31/23 10/29/24 History metoclopramide HCl 5 mg tablet 5 mg PO BEDTIME 05/31/23 10/29/24 History tamsulosin 0.4 mg capsule 0.4 mg PO Q24H 05/31/23 10/29/24 History alprazolam 0.25 mg tablet 0.25 mg PO BID 08/16/24 10/29/24 History dextromethorphan-guaifenesin 30 1 tab PO Q12H 08/16/24 10/29/24 History mg-600 mg tablet extended [id number] hr duloxetine 20 mg capsule,delayed 20 mg PO .QD 08/16/24 10/29/24 History release escitalopram oxalate 5 mg tablet 5 mg PO .QD 08/16/24 10/29/24 History pioglitazone 45 mg tablet (Actos) 45 mg PO DAILY 08/16/24 10/29/24 History potassium chloride 20 mEq 40 meq PO .QD 08/16/24 10/29/24 History tablet,extended release(part/cryst) clonidine HCl 0.1 mg tablet 0.2 mg (2 x 0.1 mg) PO Q12H #120 08/17/24 10/29/24 Rx tabs phenazopyridine 100 mg tablet 100 mg PO Q8H PRN pain 10/29/24 10/29/24 History Allergies Allergy/AdvReac Type Severity Reaction Status Date / Time nitroglycerin Allergy Intermediate Hypotension Verified 10/28/24 19:28 Iodinated Contrast Media AdvReac Intermediate renal Verified 10/28/24 19:28 problem Exam Constitutional Vital Signs, click to edit/add: Last Vital Signs Temp 97.4 F L 10/29/24 12:00 Pulse 75 10/29/24 12:00 Resp 20 10/29/24 12:00 BP 145/56 H 10/29/24 12:00 Pulse Ox 93 L 10/29/24 12:00 O2 Del Method Room Air 10/29/24 12:00 Common normals: no apparent distress General appearance: comfortable Orientation/consciousness: Yes lethargic HENMT Common normals: normocephalic Eye Common normals: EOMs intact bilaterally Neck & C-Spine General: no tracheal deviation Chest Chest: symmetrical chest wall rise Cardio Common normals: regular rate GI Common normals: soft to palpation and non-tender Inspection: no abdominal distension Common normals: no CVA tenderness Bladder/kidney exam: catheter in place Catheter type (Male): urethral (pink urine on moderate CBI) and other (Bladder nondistended, mildly tender to palpation ) Back & Pelvis Common normals: no CVA tenderness Extremity General: no calf tenderness Psych Attitude: calm Results Labs Labs: Short CBC 10/28/24 10/29/24 Range/Units 20:20 06:18 WBC 7.5 15.4 H (4.0-11.0) 10^3/uL Hgb 13.9 L 12.7 L (14.0-18.0) g/dL Hct 40.6 L 38.5 L (42.0-54.0) % Plt Count 194 211 (150-450) 10^3/uL BMP 10/28/24 10/29/24 20:20 06:18 Sodium 137 142 Potassium 4.1 4.6 Chloride 103 102 Carbon Dioxide 27.2 26.0 BUN 24.0 H 30.0 H Creatinine 1.78 H 1.85 H Glucose 262 H 281 H Calcium 8.7 8.4 L Liver Function 10/28/24 Range/Units 20:20 Total Bilirubin 0.7 (0.2-1.0) mg/dL AST 20 (15-37) U/L ALT 19 (16-63) U/L Alkaline Phosphatase 91 (46-116) U/L Albumin 2.8 L (3.4-5.0) g/dL Urology Assessment and Plan Assessment and Plan (1) Acute urinary obstruction: Assessment and Plan: continue with weiner catheter (2) Hematuria: Assessment and Plan: treat with Rocephin, Urine culture pending. Qualifiers: Hematuria type: gross Qualified Code(s): R31.0 - Gross hematuria (3) Clot retention of urine: Assessment and Plan: Per urology request, CBI started, urology evaluation/consult. Hold Eliquis, monitor H&H, continue flomax. (4) Congestive heart failure: Assessment and Plan: continue home medications, no acute exacerbation. Qualifiers: Heart failure chronicity: chronic Heart failure type: unspecified Qualified Code(s): I50.9 - Heart failure, unspecified (5) Diabetes: Assessment and Plan: Hold oral hypoglycemics. SSI if needed Qualifiers: Diabetes mellitus type: type 2 Diabetes mellitus intermediate insulin use: without long term care pharmacist use Diabetes mellitus complication status: with hyperglycemia Qualified Code(s): E11.65 - Type 2 diabetes mellitus with hyperglycemia (6) History of hypertension: Assessment and Plan: resume home meds. (7) Atrial fibrillation: Assessment and Plan: resume home meds, hold eliquis. Qualifiers: Atrial fibrillation type: paroxysmal Qualified Code(s): I48.0 - Paroxysmal atrial fibrillation (8) BPH with obstruction/lower urinary tract symptoms: Plan 84-year-old male with gross hematuria, clot retention, AMS s/p urolift 10/23/24 Plan: Catheter hand-irrigated for 50 minutes with removal of numerous dark clots. Urine now light pink on slow CBI. Continue weaning CBI to off. Hand irrigate as needed for clot retention. Hold eliquis if OK with primary team. Unclear if urine culture was sent from ER. On empiric ceftriaxone. Dr. Ac Victor to return tomorrow.
[2024-10-29 16:20] LABS: Glucometer 321 mg/dL (74-106)
[2024-10-29] MEDS: DICYCLOMINE HCL 10 MG CAPSULE PO (20:36)
[2024-10-29] MEDS: METOCLOPRAMIDE HCL 10 MG TABLET 5 MG PO (22:18)
[2024-10-29 22:38] LABS: Glucometer 333 mg/dL (74-106)
[2024-10-30] VITALS: BP 104/59; PULSE 69; TEMP 36.5; O2SAT 93
[2024-10-30] MEDS: SODIUM CHLORIDE IRRIG SOLUTION 3,000 ML 3000 ML IRR ×21 (00:09→23:39)
[2024-10-30 04:00] VITALS: BP 125/64; PULSE 73; TEMP 36.6; O2SAT 95
--- OUTSIDE RECORDS SUMMARY | 2024-10-30 06:05 | XMS_ITS | CCD ---
Author Organization [facility] Care Team Providers Care Embedded Systems Designer Name Role Phone PHYSICIAN, DEFAULT Admitting Unavailable PHYSICIAN, DEFAULT Attending Unavailable VAN YOUSSEF Primary Care Unavailable Van Youssef Primary Care Physician MIKAEL ., DR ARAUJO Primary Care Unavailable HOY ., DR ARAUJO Consulting Unavailable HOY ., DR ARAUJO Attending Unavailable HOY ., DR ARAUJO Admitting Unavailable ZIEBER, DR CLOVER Zimmer Consulting Unavailable MIAMI, DR CRAMER Consulting Unavailable HOY ., DR ARAUJO Primary Care Unavailable MIAMI, DR CRAMER Attending Unavailable MIAMI, DR CRAMER Admitting Unavailable MIAMI, DR CRAMER Consulting Unavailable HOY ., DR ARAUJO Primary Care Unavailable MIAMI, DR CRAMER Attending Unavailable MIAMI, DR CRAMER Admitting Unavailable HOY ., DR ARAUJO Consulting Unavailable HOY ., DR ARAUJO Primary Care Unavailable HOY ., DR ARAUJO Attending Unavailable HOY ., DR ARAUJO Admitting Unavailable MIAMI, DR CRAMER Consulting Unavailable HOY ., DR ARAUJO Primary Care Unavailable MIAMI, DR CRAMER Attending Unavailable MIAMI, DR CRAMER Admitting Unavailable HOY ., DR [...] Consulting Unavailable ALEJANDRA, PREETI Consulting Unavailable RUTHIE LIDNA Attending Unavailable AMYJEFF COVARRUBIAS Attending Unavailable MOUKARBEL, CLARIBEL Attending Unavailable MOUKARBEL, CLARIBEL Attending Unavailable MOUKARBEL, CLARIBEL Attending Unavailable MOUKARBEL, CLARIBEL Attending Unavailable DANA APARICIO Attending Unavailable EDD, CLARIBEL Referring Unavailable Van Youssef MD Primary Care Provider [phone] BLAISE CHICAS Attending Unavailable BARRIE MONTOYA Attending [...] acid] Drug Allergy 11-04-20 13 Unknown [facility] Repository (1 source) NITRO PATCH; Translations: [NITRO PATCH] Propensity to adverse reactions (disorder) 03-18-20 12 [facility] Repository (15 sources) Contrast media; Translations: [Contrast Dye] Drug allergy Unknown (qualifier value) [facility] (20 sources) Hmg-Coa Reductase Inhibitors (Statins); Translations: [statins] Allergy to substance 08-24-20 23 Unknown [facility] (20 sources) Nitroglycerin; Translations: [nitroglycerin] Drug Allergy 02-23-20 22 Unknown (qualifier value) [facility] (2 sources) black walnut pollen extract; Translations: [[id number] REDUCTASE INHIBITORS] Drug Allergy 04-21-20 17 [facility] Rep[facility] (1 source) Iodine (And Iodine Containting Drugs) Drug allergy (disorder) 05-28-20 16 [facility] Rep[facility] (9 sources) IODINATED CONTRAST MEDIA; Translations: [IODINATED CONTRAST MEDIA] Propensity to adverse reactions to drug (disorder) 07-17-20 22 [facility] Repository (8 sources) Nitroglycerin Allergy to substance 02-23-20 22 [facility] (1 source) Aminolevulinic Acid; Translations: [aminolevulinic acid] Drug Allergy 11-04-20 13 [facility] Repository (1 source) Nitroglycerin; Translations: [Nitroglycerin Patch] Drug Allergy [facility] Repository Medications Current Medications Medication Drug Class(es) Dates Sig (Normalized) Sig (Original) acetaminophen 325 mg / HYDROcodone bitartrate 5 mg oral tablet (1 source) Opioid Agonist Start: 10-16-2024 take 1 tablet by mouth every six hours as needed for pain, then take 2 tablets by mouth every six hours as needed for pain Hoagland 325 mg-5 mg oral tablet 1 tab(s), Oral, q6hr, 2 tab(s), Refill(s) 0, Take q6hrs as needed for pain., [facility]/pharmacy #[id number], 185, cm, 10/02/24 11:15:00 EST, [...] Active Start: 08-28-2020 take 1 capsule by [facility] once daily Align 4 mg oral capsule 4 mg = 1 cap(s), Oral, Daily, Take after completing the Antibiotics course, # 28 cap(s), Refills(s) 0, [facility] procedure., # 6 tab(s), Refills(s) 0, Pharmacy: [facility]/pharmacy #[id number], 185, cm, 10/02/24 11:15:00 EST, Height/Length Dosing, 91, kg, 10/02/24 11:15:00 EST, Weight Dosing Start Date: 10/16/24 Status: Ordered Start: 08-11-2024 take 1 tablet by joslyn th twice daily Cipro 500 mg Tab 500 mg = 1 tab(s), Oral, BID, Start 3 days prior to procedure., # 6 tab(s), Refills(s) 0, Pharmacy: [facility]/pharmacy #[id number], 185, cm, 08/08/24 10:28:00 EDT, [...] procedure., # 1 tab(s), Refills(s) 0, Pharmacy: [facility]/pharmacy #[id number], 185, cm, 10/02/24 11:15:00 EST, [...] week(s), # 42 tab(s), Refills(s) 0, Pharmacy: [facility]/pharmacy #[id number], 185, cm, 10/02/24 11:15:00 EST, [...] Date: 01/09/19 Status: Ordered 60 actuat tiotropium 0.80545 mg/actuat inhalation spray (13 sources) Anticholinergic Start: [...] disease (2 sources) Atherosclerotic heart disease of douglas coronary artery without angina pectoris; Translations: [Atherosclerotic heart disease of douglas coronary artery without angina pectoris] Onset: 03-03-2024 [...] source) Long-term current use of anticoagulant; Translations: [longterm (current) use of anticoagulants] Onset: 08-08-2024 Episodic [...] Onset: 04-30-2022 Episodic Other aftercare (1 source) longterm (current) use of aspirin; Translations: [ASSISTED CURRENT USE OF ASPIRIN] Onset: 08-27-2022 Episodic Other aftercare (1 source) longterm (current) use of anticoagulants; Translations: [ASSISTED CURRNT USE ANTICOAGULANTS] Onset: 08-27-2022 Episodic Other aftercare (1 source) Other watermaster (current) drug therapy; Translations: [OTH PAVER OPERATOR CURRENT DRUG THERAPY] Onset: 08-27-2022 Episodic Other [...] Is Your Medications List NIFEdipine acetaminophen-hydrocod one (Hoagland 325 mg-5 mg oral tablet) acyclovir apixaban [...] MARQUIS LOUISE MD Where: [facility] [address], [address] [place] [address]- Medications What How Much When Why Instructions Unchanged acetaminophen-hydrocod one (Hoagland 325 mg-5 mg oral tablet) 1 Tablets [...] emptying Naus (more content not included)... Normal [facility] Inpatient Patient Summaryon 10-23-2024 Inpatient Patient Summary Inpatient Patient Summary [address] [address] Clinical Summary Person Information Name: NADIR BETH Age: 84 Years : 1940 Sex: Male PCP: Van Youssef MD Marital Status: Race: White Ethnicity: Non- or Language: Chinese Visit Id: Visit Reason: BPH WITH URINARY OBSTRUCTION, INCOMPLETE BLADDER EMPTYING Speciality: Acuity: Enc Type: Outpatient Med Service: Surgery Arrival: 10/23/2024 13:48:15 Discharge: Dispo Type: Address: [address] [place] [phone] Provider Notes: Diagnosis: Problems Active BPH with [...] This Visit Final Med List: acetaminophen-hydrocod one (Hoagland 325 mg-5 mg oral tablet) 1 Tablets [...] Patient Education Information: Benign Prostatic Hyperplasia Normal [facility] Main OR Intraoperative Recor don 10-23-2024 Main OR Intraoperative Record Main OR Intraoperative Record IntraOp Document Type FTURO Summary Primary Physician: MARQUIS LOUISE MD Finalized Date/Time: 10/23/24 15:03:19 Pt. Name: NADIR BETH Joy Borja/Sex: 1940 Male Med Rec #: [id number] Physician: MARQUIS LOUISE MD Financial #: [id number] Pt. Type: O Room/Bed: / Admit/Disch: 10/23/24 [...] 3 Case Attendee ADRIAN GUSTAFSON, Oliva Goel MINING ENGINEERING TECHNOLOGIST, Ana CHO Role Performed Surgeon - Primary Interventional Technologist - Primary Scrub - Primary Time In [...] Implant Implant Identification Description UROLIFT Lot Number [id number] Sulfuric Acid Plant Operator UROLIFT Catalog ???# UL2-C Expiration Date 11/30/25 [...] Oliva Goel (more content not included)... Normal [facility] Main OR Preoperative Recordo n 10-23-2024 Main OR Preoperative Record Main OR Preoperative Record Holding Area Document Type FTURO Summary Primary Physician: MARQUIS LOUISE MD Finalized Date/Time: 10/23/24 14:17:30 Pt. Name: LAURAMiroslavaNADIR DUVALL D.O.B./Sex: 1940 Male Med Rec #: [id number] Physician: MARQUIS LOUISE MD Financial #: [id number] Pt. Type: O Room/Bed: / Admit/Disch: 10/23/24 [...] Complaints of Pain: No Skin Integrity Intact, [place], Warm, & Dry Vitals - EU Blood Pressure 152/78 Pulse 84 bpm Respirations 18 br/min SPO2 90 % Additional None RN Reviewed Yes Specimens Collected Last Modified By: Oliva Goel 10/23/24 14:17:29 Finalized By: Oliva Goel Document Signatures Signed By: Vincent Preeti BURGOS 10/23/24 14:05 Oliva Goel 10/23/24 14:17 Normal [facility] Operative Reporton 4 Operative Report Operative [...] urethral meatus. We then placed the 20 Greek cystoscope into the bladder. Bilobar hyperplasia was [...] able to easily navigate with a 20 Greek scope. Scope was then removed and an 18 Greek Palomares catheter was placed with return of light pink urine and no clots noted. This concluded the procedure. Patient was then transferred to PACU in stable condition. PLAN: Patient will follow-up in 2 days for Palomares catheter removal. 10 cc in the balloon Follow-up in 6 to 8 weeks with IPSS at that time Normal [facility] Comment on above: Result Comment: Elec tronically Signed By: ADRIAN GUSTAFSON, MARQUIS\.br\Date and Time Signed: 10/23/24 15:06 EST Outpatient Surgery Discharge Instructionon 10-23-2024 Outpatient Surgery Discharge Instruction Outpatient Surgery Discharge Instruction [place] [id number] Patient Discharge Instructions PERSON INFORMATION Name: NADIR [...] amount of (more content not included)... Normal [facility] Ambulatory Visit Summaryon 1 12-02-2023 Ambulatory [...] Survey Yo (more content not included)... Normal [facility] Ambulatory Visit Summary Ambulatory Visit Summary [...] us for (more content not included)... Normal [facility] Urology Office/Clinic Noteon 10-02-2024 Urology Office/Clinic [...] with voice recognition artificial intelligence software, specifically WHATT, [employer] and or [employer]. Substitutions may have occurred due to the [...] -Cipro 500mg bid start the day prior, Hoagland 325-5mg #2 q6hrs as needed for pain, [...] 3. 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) Pt presented to [facility] ER 08/06/24 with redness on the shaft [...] and Lasix. -Dm control 6. 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 Hx of cardioversion. Elevated risk for periop complications. Based on patient's age, multiple medical comorbidities and his prostate size we discussed extensively that he will benefit most likely from a UroLift procedure. He is amenable to (more content not included)... Normal [facility] Comment on above: Result Comment: Elec tronically Signed By: MARQUIS LOUISE MD\.br\Date and Time Signed: 10/02/24 11:43 EST\.br\Electronically Co-Signed By: Roxy Gatica\.br\Date and Time Co-Signed: 10/02/24 11:21 EST\.br\Electronically Co-Signed By: Roxy Gatica\.br\Date and Time Co-Signed: 10/02/24 11:22 EST\.br\Electronically Co-Signed By: Roxy Gatica\.br\Date and Time Co-Signed: 10/02/24 11:23 EST Inpatient Patient Summaryon 09-25-2024 Inpatient Patient Summary Inpatient Patient Summary [place] [address] Clinical Summary Person Information Name: NADIR BETH Age: 84 Years : 1940 Sex: Male PCP: Van Youssef MD Marital Status: Race: White Ethnicity: Non- or Language: Chinese Visit Id: Visit Reason: ENLARGED PROSTATE WITH URINARY OBSTRUCTION, INCOMPLETE BLADDER EMPTYING Speciality: Acuity: Enc Type: Outpatient Med Service: Surgery Arrival: 09/25/2024 11:42:27 Discharge: Dispo Type: Address: [address] [place] [phone] Provider Notes: Diagnosis: Problems Active BPH with [...] With: Address: When: MARQUIS LOUISE [address] [place] [phone] Business (1) Comments: Follow-up in the office in 2 weeks to discuss next plan With: Address: When: MARQUIS LOUISE [address] [place] [phone] Business (1) Patient Education Information: Benign Prostatic Hyperplasia Normal [facility] Main OR Intraoperative Recor don 09-25-2024 Main OR Intraoperative Record Main OR Intraoperative Record IntraOp Document Type FTURO Summary Primary Physician: MARQUIS LOUISE MD Finalized Date/Time: 09/25/24 13:23:58 Pt. Name: NADIR BETH D.O.B./Sex: 1940 Male Med Rec #: [id number] Physician: MARQUIS LOUISE MD Financial #: [id number] Pt. Type: O Room/Bed: / Admit/Disch: 09/25/24 [...] C KWABENA Role Performed Surgeon - Primary Interventional Technologist - Primary Scrub - Primary Time In [...] 09/25/24 13:23 Oliva Goel 09/25/24 13:23 Normal [facility] Main OR Preoperative Recordo n 09-25-2024 Main OR Preoperative Record Main OR Preoperative Record Holding Area Document Type FTURO Summary Primary Physician: MARQUIS LOUISE MD Finalized Date/Time: 09/25/24 13:04:51 Pt. Name: NADIR BETH /Sex: 1940 Male Med Rec #: [id number] Physician: MARQUIS LOUISE MD Financial #: [id number] Pt. Type: O Room/Bed: / Admit/Disch: 09/25/24 [...] Complaints of Pain: No Skin Integrity Intact, [place], Warm, & Dry Vitals - EU Blood Pressure Pulse Respirations SPO2 Additional None RN Reviewed Yes Specimens Collected Last Modified By: Oliva Goel 09/25/24 13:04:50 Finalized By: Oliva Goel Document Signatures Signed By: Preeti Kaur LPN 09/25/24 12:49 Oliva Goel 09/25/24 13:04 Normal [facility] Operative Reporton Operative Report Operative Report [...] steps Impression and Plan Counseled: Family. Normal [facility] Comment on above: Result Comment: Elec tronically Signed By: MARQUIS LOUISE MD\.br\Date and Time Signed: 09/25/24 13:27 EST Outpatient Surgery Discharge Instructionon 09-25-2024 Outpatient Surgery Discharge Instruction Outpatient Surgery Discharge Instruction [address] [address] Patient Discharge Instructions PERSON INFORMATION [...] 911 Follow up: With: Address: When: [place] [phone] Endgame (1) Comments: Follow-up in the office in 2 weeks to discuss next plan With: Address: When: [place] [address] [phone] Endgame (1) Comment: PATIENT EDUCATION INFORMATION Instructions: Benign [...] frequen (more content not included)... Normal [facility] No Panel Informationon 08-24 [facility] Ambulatory Visit Summaryon 0 08-08-2024 Ambulatory [...] mg (more content not included)... Normal [facility] Urology Office/Clinic Noteon 08-08-2024 Urology Office/Clinic Note Urology Office/Clinic Note Chief Complaint follow up to [facility] ER HPI Staff 84 year old male new patient follow up to [facility] 08/06/24 presented due to redness on the [...] 1. 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) Pt presented to [facility] ER 08/06/24 with redness on the shaft [...] urinary channel, (more content not included)... Normal [facility] Comment on above: Result Comment: Elec tronically Signed By: MARQUIS LOUISE MD\.br\Date and Time Signed: 08/08/24 11:05 EDT\.br\Electronically Co-Signed By: Roxy Gatica\.br\Date and Time Co-Signed: 08/08/24 10:46 EDT\.br\Electronically Co-Signed By: Roxy Gatica\.br\Date and Time Co-Signed: 08/08/24 10:53 EDT Office Visiton 07-05-2024 Follow-up visit [id number] Nadir Beth 1940 M Date Provider Department Center 07/05/2024 RUTHIE OWEN [facility] NEPHRO Comprehensiv Family History Problem Relation Age of Onset Coronary artery disease Father Family Status - Relation Status Age at Father Level of Service:67964 [place] OFFICE/OUTPATIENT ESTABLISHED MOD MDM 30 MIN Reason for Visit and Comments: Follow-up [[id number]] Normal [facility] 36on 06-20-2024 36 Regarding echo resul [...] her he should have another echo at [facility] in Oct 2024, prior to his follow up with Dr. Cisneros in Nov 2024. She verbalized understanding. Echo order faxed to [facility]. [facility] 06-14-2024 36 Patients called and stating that dr. Linda told her to call and let him know that her husbands blood pressure is better and she would like a call back. [facility] 06-09-2024 36 Spoke with patient's Shanna and made sure she understood to increase labetalol per Dr. Linda. She also understands not to resume hydralazine. [facility] 3606-07-2024 36 I'm Stephanie from Dr. Cisneros's office with Cardiology. Patient's daughter called and wanted to know if Dr. Linda had restarted patient's hydralazine- NOT hydroxyzine. I don't see in the note that it was restarted. Dr. Linda, or someone from his office- can you clarify this for me? Thanks so much. [facility] Follow-Upon 06-07-2024 Follow-Up [id number] Nadir Beth 1940 M Date Provider Department Center 06/07/2024 Salvador-RUTHIE LINDA [facility] NEPHRO Comprehensiv Family History Problem Relation Age of Onset Coronary artery disease Father Family Status - Relation Status Age at Father Level of Service:31845 [place] OFFICE/OUTPATIENT ESTABLISHED MOD MDM 30 MIN () Reason for Visit and Comments: Follow-up [[id number]] [facility] Telephoneon 06-07-2024 Telephone [id number] Nadir Beth 1940 M Date Provider Department Center 06/07/2024 Francisco-IRIS GUADALUPE [facility] NEPHRO Comprehensiv Family History Problem Relation Age of Onset Coronary artery disease Father Family Status - Relation Status Age at Father [facility] Office Visiton 06-05-2024 Follow-up visit [id number] Nadir Beth 1940 M Date Provider Department Center 06/05/2024 CLARIBEL VILLALOBOS MILKA [facility] Family History Problem Relation Age of Onset Coronary artery disease Father Family Status - Relation Status Age at Father Level of Service:25022 [place] OFFICE/OUTPATIENT ESTABLISHED MOD MDM 30 MIN [facility] 3605-17-2024 36 Faxed lab orders 05/17/24 [facility] 05-15-2024 36 Patient states that he needs his blood work to go to [facility] before his appointment on 05/31/24. [facility] 05-10-2024 36 LM on for patient or his to return my call. [facility] 05-08-2024 36 Patient's bucio lidia with concerns of elevated BP since hydralazine was stopped at last apt. She said sometimes it's very good - 110/60's and sometimes 152/70. He's scheduled to see you in a few weeks. Did you want to change anything? Please advise. Thanks. [facility] 3604-04-2024 36 Regarding blood work from 04/03/2024: MD Stephanie Kelley MA Stable renal function. Continue same treatment and follow-up as planned. Patient's made aware. [facility] Orders Onlyon 03-21-2024 Orders Only [id number] Nadir Beth Joy 1940 M Date Provider Department Center 03/21/2024 LUCRETIA BENZ [facility] Family History Problem Relation Age of Onset Coronary artery disease Father Family Status - Relation Status Age at Father [facility] Office Visiton 03-03-2024 Follow-up visit [id number] Lauracarl,Nadir Hamilton 1940 M Date Provider Department Center 03/03/2024 CLARIBEL VILLALOBOS CARD [facility] Family History Problem Relation Age of Onset Coronary artery disease Father Family Status - Relation Status Age at Father Level of Service:47003 [place] OFFICE/OUTPATIENT ESTABLISHED MOD MDM 30 MIN Reason for Visit and Comments: Follow-up [[id number]] [facility] 36on 12-29-2023 36 Called and spoke jaquan barrera patient and rescheduled patients appointment from 05/31 to 06/07. [facility] 36on 12-28-2023 36 Called patient lvm t o contact the office back to reschedule appointment. [facility] Follow-Upon 11-17-2023 Follow-Up [id number] Nadir Beth 1940 M Date Provider Department Center 11/17/2023 RUTHIE OWEN [facility] NEPHRO Comprehensiv Family History Problem Relation Age of Onset Coronary artery disease Father Family Status - Relation Status Age at Father Level of Service:59282 [place] OFFICE/OUTPATIENT ESTABLISHED MOD MDM 30 MIN () Reason for Visit and Comments: Follow-up [[id number]] Chronic Kidney Disease [176] [facility] 36on 10-12-2023 36 Patient called to wander maynard aware that he was in [facility] ED on (Wednesday) for SOB. He wanted you to look over his records. I have uploaded them all into his multimedia technician for your review. His BNP is increased to 4000 and was previously 2600 about 1 month ago. Looks like they gave him extra lasix in the ED and recommended he follow up with Dr. Youssef outpatient. Can you please review and let me know if you'd like anything done/ordered? Thanks. [facility] 36on 09-20-2023 36 Called and spoke jaquan barrera and rescheduled appointment and informed her patient would need to get labs done. [facility] 36 Patients called in to reschedule appointment from 09/08 [facility] Office Visiton 09-17-2023 Follow-up visit [id number] Steen 1940 M Date Provider Department Center 09/17/2023 CLARIBEL VILLALOBOS [facility] Family History Problem Relation Age of Onset Coronary artery disease Father Family Status - Relation Status Age at Father Level of Service:35754 [place] OFFICE/OUTPATIENT ESTABLISHED MOD MDM 30-39 MIN Reason for Visit and Comments: Follow-up [[id number]] [facility] 08-31-2023 [facility] Cardiology - [facility] Subjective Nadir Beth is [...] extremity edema. He was admitted to the [facility] in August 2022 due to hyponatremia, hyperkalemia and acute kidney injury, leukocytosis secondary to COVID-19 causing dehydration. I saw him on 05/24/2023 and the office and he had significant evidence of volume overload by exam and echocardiogram. I intensified his diuretic regimen. He ended up getting admitted to the [facility] with acute heart failure exacerbation [...] Allergies Allergen Reactions Iodinated Contrast Media Nitroglycerin Lwvnabp-Gsx-Yqg Reductase Inhibitors Medications Current Outpatient Medications: acyclovir [...] Take 1 ta (more content not included)... [facility] NURSNOTEon 08-31-2023 NURSNOTE Pt performed and passed bedside swallow study. RN educated pt on d/c instructions. RN encouraged pt to voice any questions or concerns. Pt verbalizes no questions or concerns at this time. Pt was wheeled off of unit with all of belongings. [facility] Telephoneon 08-24-2023 Telephone [id number] Nadir Beth 1940 M [facility] Provider Department Center 08/24/2023 RABIA KONG [facility] Family History Problem Relation Age of Onset Coronary artery disease Father Family Status - Relation Status Age at Father [facility] Office Visiton 07-21-2023 Follow-up visit [id number] Nadir Beth 1940 M Date Provider Department Center 07/21/2023 CLARIBEL VILLALOBOS [facility] Family History Problem Relation Age of Onset Coronary artery disease Father Family Status - Relation Status Age at Father Level of Service:34494 [place] OFFICE/OUTPATIENT ESTABLISHED MOD MDM 30-39 MIN Reason for Visit and Comments: Follow-up [[id number]] [facility] MICRO OTHER TESTSOrdered By: Francisco Bolanos on 04-15-2023 Fecal WBC Lactoferrin Negative (04/15/23 7:00 AM) Normal Negative [facility] Man Sero CHEMISTRYOrdered By: SYSTEM SYSTEM on 04-13-2023 Albumin [Mass/Vol] 3.8 g/dL Normal 3.3 - 5.0 gm/dL [facility] Remisol Albumin/Globulin [Mass ratio] 1.4 {ratio} Normal [...] 9.8 fL Normal 6.4 - 10.8 fL [facility] HemeAutoSS Platelets (Bld) [#/Vol] 161.0 E9/L Normal 150.0 - 500.0 E9/L [facility] HemeAutoSS RBC (Bld) [#/Vol] 4.0 E12/L Low 4.3 - 5.9 E12/L [facility] HemeAutoSS WBC corrected for nucl RBC Auto (Bld) [#/Vol] 6.7 E9/L Normal 4.0 - 11.0 E9/L [facility] HemeAutoSS ALBUMINon 03-24-2023 Albumin [Mass/Vol] 3.3 g/dL Critically low 3.4-5.0 Th [facility] Comment on above: Performed By: #### M ERICK Faith, PHOS #### [facility] [address] [address] [address] David Magana GLYCOHEMOGLOBIN A1Con 2022 ADA RECOMMENDATION SEE BELOW Normal [facility] Comment on above: Result Comment: ADA RECOMMENDED LIMIT 4.0 - 6.0 ADA THERAPEUTIC TARGET < 7.0 ACTION SUGGESTED > 7.0 Performed By: #### A 1C #### [facility] [address] [address] [address] David Magana Glucose [Mass/Vol] 108 mg/dL Normal [facility] Comment on above: Performed By: #### A 1C #### [facility] [address] [address] [address] David Magana HbA1c (Bld) [Mass fraction] 5.4 % Normal 4.5-6.2 [facility] Comment on above: Performed By: #### A 1C #### [facility] [address] [address] [address] David Magana PHOSPHORUSon 03-24-2023 Phosphate [Mass/Vol] 3.6 mg/dL Normal 2.6-4.7 [facility] Comment on above: Performed By: #### M ERICK Faith, PHOS #### [facility] [address] [address] [address] David Magana PROF CHEM 8 (BAS METB)on Anion gap [Moles/Vol] 11.6 mmol/L Normal Th [facility] Comment on above: Performed By: #### M ERICK Faith, PHOS #### [facility] [address] [address] [address] David Magana Calcium [Mass/Vol] 8.9 mg/dL Normal 8.5-10.1 [facility] Comment on above: Performed By: #### M ERICK Faith, PHOS #### [facility] [address] [address] [address] David Magana Chloride [Moles/Vol] 107 mmol/L Normal 98-107 [facility] Comment on above: Performed By: #### M ERICK Faith, PHOS #### [facility] [address] [place] [address] Dr. David Magana CO2 [Moles/Vol] 30.8 mmol/L Normal 21.0-32.0 [facility] Comment on above: Performed By: #### ERICK Jacques, PHOS #### [facility] [address] [address] [address] David Magana Creatinine [Mass/Vol] 1.67 mg/dL Critically high 0.70-1.30 [facility] Comment on above: Performed By: #### ERICK Jacques, PHOS #### [facility] [address] [place] [address] Dr. David Magana EGFR-AF KOSOVAN 48 mL/min/1.73m2 Critically low >=60 [facility] Comment on above: Performed By: #### ERICK Jacques, PHOS #### [facility] [address] [address] [address] David Magana EGFR-NON AF KOSOVAN 39 mL/min/1.73m2 Critically low >=60 [facility] Comment on above: Performed By: #### M ERICK Faith, PHOS #### [facility] [address] [address] [address] David Magana Glucose [Mass/Vol] 128 mg/dL Critically high 74-106 [facility] Comment on above: Performed By: #### M Marcell BMP, PHOS #### [facility] [address] [place] [address] Dr. David Magana Potassium [Moles/Vol] 4.4 mmol/L Normal 3.5-5.1 [facility] Comment on above: Performed By: #### M Marcell BMP, PHOS #### [facility] [address] [place] [address] Dr. David Magana Sodium [Moles/Vol] 145 mmol/L Normal 136-145 [facility] Comment on above: Performed By: #### M Marcell BMP, PHOS #### [facility] [address] [place] [address] Dr. David Magana Urea nitrogen [Mass/Vol] 25.0 mg/dL Critically high 7.0-18.0 [facility] Comment on above: Performed By: #### ERICK Jacques, PHOS #### [facility] [address] [place] [address] Dr. David Magana Urea nitrogen/Creatinine [Mass ratio] 15.0 mg/mg Normal [facility] Comment on above: Performed By: #### ERICK Jacques, PHOS #### [facility] [address] [place] [address] Dr. David Magana VITAMIN D 25 OHon 03-24-2023 VIT D 25-OH 11.6 ng/mL Normal [facility] Comment on above: Performed By: #### C BC #### [facility] [address] [place] [address] Dr. David Magana VIT D RANGES SEE BELOW Normal [facility] Comment on above: Result Comment: <20 ng/mL Vit D deficient 20 - <30 ng/mL Vit D insufficient 30 - 100 ng/mL Vit D sufficient >100 ng/mL Potential Toxicity Performed By: #### C BC #### [facility] [address] [place] [address] Dr. David Magana CBC AUTO DIFFon 02-27-2023 BASO # 0.0 103/ul Normal 0.0-0.1 [facility] Comment on above: Performed By: #### M ERICK Faith, PHOS #### [facility] [address] [place] [address] Dr. David Magana Basophils/100 WBC (Bld) 0.5 % Normal 0.2-2.0 [facility] Comment on above: Performed By: #### M G, BMP, PHOS #### [facility] [address] [place] [address] Dr. David Magana EO # 0.7 103/ul Normal 0.0-0.7 [facility] Comment on above: Performed By: #### M G, BMP, PHOS #### [facility] [address] [place] [address] Dr. David Magana Eosinophils/100 WBC (Bld) 9.3 % Critically high 0.9-7.0 [facility] Comment on above: Performed By: #### M G, BMP, PHOS #### [facility] [address] [place] [address] Dr. Davdi Magana Erythrocyte distribution width (RBC) [Ratio] 14.6 % Normal 11.0-15.0 [facility] Comment on above: Performed By: #### M G, BMP, PHOS #### [facility] [address] [place] [address] Dr. David Magana Hematocrit (Bld) [Volume fraction] 41.5 % Critically low 42.0-54.0 [facility] Comment on above: Performed By: #### M G, BMP, PHOS #### [facility] [address] [place] [address] Dr. David Magana Hemoglobin (Bld) [Mass/Vol] 13.9 g/dL Critically low 14.0-18.0 [facility] Comment on above: Performed By: #### M G, BMP, PHOS #### [facility] [address] [place] [address] Dr. David Magana IG # 0.02 10e3/ul Normal 0.00-0.03 [facility] Comment on above: Performed By: #### M G, BMP, PHOS #### [facility] [address] [place] [address] Dr. David Magana IG % 0.3 % Normal 0.0-0.5 [facility] Comment on above: Performed By: #### ERICK Jacques, PHOS #### [facility] [address] [place] [address] Dr. David Magana LYMPH # 1.0 103/ul Critically low 1.2-3.8 [facility] Comment on above: Performed By: #### ERICK Jacques, PHOS #### [facility] [address] [place] [address] Dr. David Magana Lymphocytes/100 WBC (Bld) 13.0 % Critically low 20.5-60.0 [facility] Comment on above: Performed By: #### ERICK Jacques, PHOS #### [facility] [address] [place] [address] Dr. David Magana MANUAL DIFF REQ NO Normal [facility] Comment on above: Performed By: #### ERICK Jacques, PHOS #### [facility] [address] [place] [address] Dr. David Magana MCH (RBC) [Entitic mass] 33.5 pg Normal 25.9-34.0 [facility] Comment on above: Performed By: #### ERICK Jacques, PHOS #### [facility] [address] [place] [address] Dr. David Magana MCHC (RBC) [Mass/Vol] 33.5 g/dL Normal 29.9-35.2 [facility] Comment on above: Performed By: #### ERICK Jacques, PHOS #### [facility] [address] [place] [address] Dr. David Magana MCV (RBC) [Entitic vol] 100.0 fL Critically high 80.0-94.0 [facility] Comment on above: Performed By: #### ERICK Jacques, PHOS #### [facility] [address] [place] [address] Dr. David Magana MONO # 0.8 103/ul Normal 0.3-0.8 [facility] Comment on above: Performed By: #### M G, BMP, PHOS #### [facility] [address] [place] [address] Dr. David Magana Monocytes/100 WBC (Bld) 10.1 % Normal 1.7-12.0 [facility] Comment on above: Performed By: #### M G, BMP, PHOS #### [facility] [address] [place] [address] Dr. David Magana NEUT # 5.0 103/ul Normal 1.4-6.5 [facility] Comment on above: Performed By: #### M G, BMP, PHOS #### [facility] [address] [place] [address] Dr. David Magana Neutrophils/100 WBC (Bld) 66.8 % Normal 43.0-75.0 [facility] Comment on above: Performed By: #### M Marcell, BMP, PHOS #### [facility] [address] [place] [address] Dr. David Magana Platelet mean volume (Bld) [Entitic vol] 11.2 fL Normal 9.5-13.5 [facility] Comment on above: Performed By: #### M Marcell BMP, PHOS #### [facility] [address] [place] [address] Dr. David Magana PLT 187 103/ul Normal 150-450 [facility] Comment on above: Performed By: #### M Marcell, BMP, PHOS #### [facility] [address] [place] [address] Dr. David Magana RBC 4.15 106/ul Critically low 4.70-6.10 [facility] Comment on above: Performed By: #### M G, BMP, PHOS #### [facility] [address] [place] [address] Dr. David Magana WBC 7.5 103/ul Normal 4.0-11.0 [facility] Comment on above: Performed By: #### M G, BMP, PHOS #### [facility] [address] [place] [address] Dr. David Magana PROF 14(COMP METB)on 023 Albumin [Mass/Vol] 3.5 g/dL Normal 3.4-5.0 [facility] Comment on above: Performed By: #### A 1C #### [facility] [address] [place] [address] Dr. David Magana Albumin/Globulin [Mass ratio] 1.1 {ratio} Normal [facility] Comment on above: Performed By: #### A 1C #### [facility] [address] [place] [address] Dr. David Magana ALP [Catalytic activity/Vol] 76 U/L Normal 46-116 [facility] Comment on above: Performed By: #### A 1C #### [facility] [address] [place] [address] Dr. David Magana ALT [Catalytic activity/Vol] 23 U/L Normal 16-63 [facility] Comment on above: Performed By: #### A 1C #### [facility] [address] [place] [address] Dr. David Magana Anion gap [Moles/Vol] 13.1 mmol/L Normal [facility] Comment on above: Performed By: #### A 1C #### [facility] [address] [place] [address] Dr. David Magana AST [Catalytic activity/Vol] 17 U/L Normal 15-37 [facility] Comment on above: Performed By: #### A 1C #### [facility] [address] [place] [address] Dr. David Magana Bilirubin [Mass/Vol] 0.7 mg/dL Normal 0.2-1.0 [facility] Comment on above: Performed By: #### A 1C #### [facility] [address] [place] [address] Dr. David Magana Calcium [Mass/Vol] 9.0 mg/dL Normal 8.5-10.1 [facility] Comment on above: Performed By: #### A 1C #### [facility] [address] [place] [address] Dr. David Magana Chloride [Moles/Vol] 105 mmol/L Normal 98-107 [facility] Comment on above: Performed By: #### A 1C #### [facility] [address] [address] [address] David Magana CO2 [Moles/Vol] 29.0 mmol/L Normal 21.0-32.0 [facility] Comment on above: Performed By: #### A 1C #### [facility] [address] [address] [address] David Magana Creatinine [Mass/Vol] 1.77 mg/dL Critically high 0.70-1.30 [facility] Comment on above: Performed By: #### A 1C #### [facility] [address] [address] [address] David Magana EGFR-AF KOSOVAN 45 mL/min/1.73m2 Critically low >=60 [facility] Comment on above: Performed By: #### A 1C #### [facility] [address] [address] [address] David Magana EGFR-NON AF KOSOVAN 37 mL/min/1.73m2 Critically low >=60 [facility] Comment on above: Performed By: #### A 1C #### [facility] [address] [address] [address] David Magana Globulin (S) [Mass/Vol] 3.3 g/dL Normal [facility] Comment on above: Performed By: #### A 1C #### [facility] [address] [address] [address] David Magana Glucose [Mass/Vol] 135 mg/dL Critically high 74-106 [facility] Comment on above: Performed By: #### A 1C #### [facility] [address] [address] [address] David Magana Potassium [Moles/Vol] 4.1 mmol/L Normal 3.5-5.1 [facility] Comment on above: Performed By: #### A 1C #### [facility] [address] [address] [address] David Magana Protein [Mass/Vol] 6.8 g/dL Normal 6.4-8.2 [facility] Comment on above: Performed By: #### A 1C #### [facility] [address] [address] [address] David Magana Sodium [Moles/Vol] 143 mmol/L Normal 136-145 [facility] Comment on above: Performed By: #### A 1C #### [facility] [address] [address] [address] David Magana Urea nitrogen [Mass/Vol] 31.0 mg/dL Critically high 7.0-18.0 [facility] Comment on above: Performed By: #### A 1C #### [facility] [address] [address] [address] David Magana Urea nitrogen/Creatinine [Mass ratio] 17.5 mg/mg Normal [facility] Comment on above: Performed By: #### A 1C #### [facility] [address] [place] [address] Dr. David Magana PROTIMEon 02-27-2023 INR Coag (PPP) [Relative time] 0.99 {INR} Normal [facility] Comment on above: Performed By: #### A 1C #### [facility] [address] [address] [address] David Magana INR GUIDELINES SEE BELOW Normal [facility] Comment on above: Result Comment: IDANIA RED INR: 2.0 - 3.0 CONDITIONS NOT LISTED BELOW 2.5 - 3.5 FOR PROSTHETIC HEART VALVE REPLACEMENT 2.5 - 3.5 RECURRENT THROMBOSIS Performed By: #### A 1C #### [facility] [address] [place] [address] Dr. David Magana PT Coag (PPP) [Time] 10.5 s Normal 9.0-11.6 [facility] Comment on above: Performed By: #### A 1C #### [facility] [address] [place] [address] Dr. David Magana PTTon 02-27-2023 aPTT Coag (Bld) [Time] 33.0 s Normal 22.3-36.2 [facility] Comment on above: Performed By: #### P OCGLUC #### [facility] [address] [address] [address] David Magnaa ALBUMINon 12-28-2022 Albumin [Mass/Vol] 3.6 g/dL Normal 3.4-5.0 [facility] Comment on above: Performed By: #### C BC #### [facility] [address] [place] [address] Dr. David Magana GLYCOHEMOGLOBIN A1Con 2022 ADA RECOMMENDATION SEE BELOW Normal [facility] Comment on above: Result Comment: ADA RECOMMENDED LIMIT 4.0 - 6.0 ADA THERAPEUTIC TARGET < 7.0 ACTION SUGGESTED > 7.0 Performed By: #### P OCGLUC #### [facility] [address] [place] [address] Dr. David Magana Glucose [Mass/Vol] 140 mg/dL Normal [facility] Comment on above: Performed By: #### P OCGLUC #### [facility] [address] [place] [address] Dr. David Magana HbA1c (Bld) [Mass fraction] 6.5 % Critically high 4.5-6.2 [facility] Comment on above: Performed By: #### P OCGLUC #### [facility] [address] [place] [address] Dr. David Magana MAGNESIUMon 12-28-2022 Magnesium [Mass/Vol] 2.3 mg/dL Normal 1.8-2.4 [facility] Comment on above: Performed By: #### P OCGLUC #### [facility] [address] [place] [address] Dr. David Magana PROF CHEM 8 (BAS METB)on Anion gap [Moles/Vol] 13.2 mmol/L Normal [facility] Comment on above: Performed By: #### P OCGLUC #### [facility] [address] [place] [address] Dr. David Magana Calcium [Mass/Vol] 9.0 mg/dL Normal 8.5-10.1 [facility] Comment on above: Performed By: #### P OCGLUC #### [facility] [address] [address] [address] David Magana Chloride [Moles/Vol] 105 mmol/L Normal 98-107 [facility] Comment on above: Performed By: #### P OCGLUC #### [facility] [address] [address] [address] David Magana CO2 [Moles/Vol] 28.9 mmol/L Normal 21.0-32.0 [facility] Comment on above: Performed By: #### P OCGLUC #### [facility] [address] [address] [address] David Magana Creatinine [Mass/Vol] 1.66 mg/dL Critically high 0.70-1.30 [facility] Comment on above: Performed By: #### P OCGLUC #### [facility] [address] [address] [address] David Magana EGFR-AF KOSOVAN 48 mL/min/1.73m2 Critically low >=60 [facility] Comment on above: Performed By: #### P OCGLUC #### [facility] [address] [address] [address] David Magana EGFR-NON AF KOSOVAN 40 mL/min/1.73m2 Critically low >=60 [facility] Comment on above: Performed By: #### P OCGLUC #### [facility] [address] [address] [address] David Magana Glucose [Mass/Vol] 123 mg/dL Critically high 74-106 [facility] Comment on above: Performed By: #### P OCGLUC #### [facility] [address] [address] [address] David Magana Potassium [Moles/Vol] 4.1 mmol/L Normal 3.5-5.1 [facility] Comment on above: Performed By: #### P OCGLUC #### [facility] [address] [address] [address] David Magana Sodium [Moles/Vol] 143 mmol/L Normal 136-145 [facility] Comment on above: Performed By: #### P OCGLUC #### [facility] [address] [address] [address] David Magana Urea nitrogen [Mass/Vol] 29.0 mg/dL Critically high 7.0-18.0 [facility] Comment on above: Performed By: #### P OCGLUC #### [facility] [address] [place] [address] Dr. David Magana Urea nitrogen/Creatinine [Mass ratio] 17.5 mg/mg Normal [facility] Comment on above: Performed By: #### P OCGLUC #### [facility] [address] [place] [address] Dr. David Magana URINE T PROTEIN CREAT RATIOo n 12-28-2022 UR TOTAL PROTEIN <6.0 Normal <=12.0 [facility] Comment on above: Performed By: #### M G, BMP, PHOS #### [facility] [address] [place] [address] Dr. David Magana URINE CREAT 41.21 mg/dL Normal 20.00-300.00 [facility] Comment on above: Performed By: #### M G, BMP, PHOS #### [facility] [address] [place] [address] Dr. David Magana ALBUMINon 11-16-2022 Albumin [Mass/Vol] 3.3 g/dL Critically low 3.4-5.0 [facility] Comment on above: Performed By: #### C BC #### [facility] [address] [place] [address] Dr. David Magana CREATININE URINEon URINE CREAT 19.69 mg/dL Critically low 20.00-300.00 [facility] Comment on above: Performed By: #### M G, BMP, PHOS #### [facility] [address] [place] [address] Dr. David Magana HEMOGLOBINon 11-16-2022 Hemoglobin (Bld) [Mass/Vol] 14.9 g/dL Normal 14.0-18.0 [facility] Comment on above: Performed By: #### M G, BMP, PHOS #### [facility] [address] [place] [address] Dr. David Magana MAGNESIUMon 11-16-2022 Magnesium [Mass/Vol] 2.2 mg/dL Normal 1.8-2.4 [facility] Comment on above: Performed By: #### C BC #### [facility] [address] [place] [address] Dr. David Magana PHOSPHORUSon 11-16-2022 Phosphate [Mass/Vol] 3.9 mg/dL Normal 2.6-4.7 [facility] Comment on above: Performed By: #### C BC #### [facility] [address] [place] [address] Dr. David Magana PROF CHEM 8 (BAS METB)on Anion gap [Moles/Vol] 11.9 mmol/L Normal [facility] Comment on above: Performed By: #### C BC #### [facility] [address] [place] [address] Dr. David Magana Calcium [Mass/Vol] 8.8 mg/dL Normal 8.5-10.1 [facility] Comment on above: Performed By: #### C BC #### [facility] [address] [place] [address] Dr. David Magana Chloride [Moles/Vol] 104 mmol/L Normal 98-107 [facility] Comment on above: Performed By: #### C BC #### [facility] [address] [place] [address] Dr. David Magana CO2 [Moles/Vol] 27.4 mmol/L Normal 21.0-32.0 [facility] Comment on above: Performed By: #### C BC #### [facility] [address] [place] [address] Dr. David Magana Creatinine [Mass/Vol] 1.68 mg/dL Critically high 0.70-1.30 [facility] Comment on above: Performed By: #### C BC #### [facility] [address] [place] [address] Dr. David Magana EGFR-AF KOSOVAN 48 mL/min/1.73m2 Critically low >=60 [facility] Comment on above: Performed By: #### C BC #### [facility] [address] [address] [address] David Magana EGFR-NON AF KOSOVAN 39 mL/min/1.73m2 Critically low >=60 [facility] Comment on above: Performed By: #### C BC #### [facility] [address] [address] [address] David Magana Glucose [Mass/Vol] 212 mg/dL Critically high 74-106 [facility] Comment on above: Performed By: #### C BC #### [facility] [address] [address] Dr. David Magana Potassium [Moles/Vol] 4.3 mmol/L Normal 3.5-5.1 [facility] Comment on above: Performed By: #### C BC #### [facility] [address] [address] [address] David Magana Sodium [Moles/Vol] 139 mmol/L Normal 136-145 [facility] Comment on above: Performed By: #### C BC #### [facility] [address] [address] [address] David Magana Urea nitrogen [Mass/Vol] 25.0 mg/dL Critically high 7.0-18.0 [facility] Comment on above: Performed By: #### C BC #### [facility] [address] [address] [address] David Magana Urea nitrogen/Creatinine [Mass ratio] 14.9 mg/mg Normal [facility] Comment on above: Performed By: #### C BC #### [facility] [address] [address] [address] David Magana PROTEIN RAND URINEon 023 UR PROT <5.0 Normal <=11.9 [facility] Comment on above: Performed By: #### M G, BMP, PHOS #### [facility] [address] [address] [address] David Magana US CHANI DOP LEG [...] CLOVER PEREZ Date: 2022-11-02 16:21 Normal [facility] BNPon 07-22-2022 Natriuretic peptide B (Bld) [Mass/Vol] 2143.0 pg/mL Critically high <=1,800.0 [facility] Comment on above: Performed By: #### M ERICK Faith PHOS #### [facility] [address] [place] [address] Dr. David Magana CBC AUTO DIFFon 07-22-2022 BASO # 0.0 103/ul Normal 0.0-0.1 [facility] Comment on above: Performed By: #### A 1C #### [facility] [address] [place] [address] Dr. David Magana Basophils/100 WBC (Bld) 0.3 % Normal 0.2-2.0 [facility] Comment on above: Performed By: #### A 1C #### [facility] [address] [place] [address] Dr. David Magana EO # 0.3 103/ul Normal 0.0-0.7 [facility] Comment on above: Performed By: #### A 1C #### [facility] [address] [place] [address] Dr. David Magana Eosinophils/100 WBC (Bld) 2.4 % Normal 0.9-7.0 [facility] Comment on above: Performed By: #### A 1C #### [facility] [address] [place] [address] Dr. David Magana Erythrocyte distribution width (RBC) [Ratio] 13.4 % Normal 11.0-15.0 [facility] Comment on above: Performed By: #### A 1C #### [facility] [address] [place] [address] Dr. David Magana Hematocrit (Bld) [Volume fraction] 42.7 % Normal 42.0-54.0 [facility] Comment on above: Performed By: #### A 1C #### [facility] [address] [place] [address] Dr. David Magana Hemoglobin (Bld) [Mass/Vol] 14.2 g/dL Normal 14.0-18.0 [facility] Comment on above: Performed By: #### A 1C #### [facility] [address] [address] [address] David Magana IG # 0.18 10e3/ul Critically high 0.00-0.03 [facility] Comment on above: Performed By: #### A 1C #### [facility] [address] [place] [address] Dr. David Magana IG % 1.6 % Critically high 0.0-0.5 [facility] Comment on above: Performed By: #### A 1C #### [facility] [address] [address] [address] David Magana LYMPH # 0.9 103/ul Critically low 1.2-3.8 [facility] Comment on above: Performed By: #### A 1C #### [facility] [address] [place] [address] Dr. David Magana Lymphocytes/100 WBC (Bld) 8.1 % Critically low 20.5-60.0 [facility] Comment on above: Performed By: #### A 1C #### [facility] [address] [place] [address] Dr. David Magana MANUAL DIFF REQ NO Normal [facility] Comment on above: Performed By: #### A 1C #### [facility] [address] [place] [address] Dr. David Magana MCH (RBC) [Entitic mass] 33.3 pg Normal 25.9-34.0 [facility] Comment on above: Performed By: #### A 1C #### [facility] [address] [place] [address] Dr. David Magana MCHC (RBC) [Mass/Vol] 33.3 g/dL Normal 29.9-35.2 [facility] Comment on above: Performed By: #### A 1C #### [facility] [address] [place] [address] Dr. David Magana MCV (RBC) [Entitic vol] 100.2 fL Critically high 80.0-94.0 [facility] Comment on above: Performed By: #### A 1C #### [facility] [address] [address] [address] David Magana MONO # 1.2 103/ul Critically high 0.3-0.8 [facility] Comment on above: Performed By: #### A 1C #### [facility] [address] [place] [address] Dr. David Magana Monocytes/100 WBC (Bld) 10.5 % Normal 1.7-12.0 [facility] Comment on above: Performed By: #### A 1C #### [facility] [address] [place] [address] Dr. David Magana NEUT # 8.9 103/ul Critically high 1.4-6.5 [facility] Comment on above: Performed By: #### A 1C #### [facility] [address] [place] [address] Dr. David Magana Neutrophils/100 WBC (Bld) 77.1 % Critically high 43.0-75.0 [facility] Comment on above: Performed By: #### A 1C #### [facility] [address] [place] [address] Dr. David Magana Platelet mean volume (Bld) [Entitic vol] 11.3 fL Normal 9.5-13.5 [facility] Comment on above: Performed By: #### A 1C #### [facility] [address] [place] [address] Dr. David Magana PLT 175 103/ul Normal 150-450 [facility] Comment on above: Performed By: #### A 1C #### [facility] [address] [place] [address] Dr. David Magana RBC 4.26 106/ul Critically low 4.70-6.10 [facility] Comment on above: Performed By: #### A 1C #### [facility] [address] [place] [address] Dr. David Magana WBC 11.5 103/ul Critically high 4.0-11.0 [facility] Comment on above: Performed By: #### A 1C #### [facility] [address] [place] [address] Dr. David Magana PROF 14(COMP METB)on 022 Albumin [Mass/Vol] 2.6 g/dL Critically low 3.4-5.0 [facility] Comment on above: Performed By: #### ERICK Jacques, PHOS #### [facility] [address] [place] [address] Dr. David Magana Albumin/Globulin [Mass ratio] 0.9 {ratio} Normal [facility] Comment on above: Performed By: #### ERICK Jacques, PHOS #### [facility] [address] [place] [address] Dr. David Magana ALP [Catalytic activity/Vol] 49 U/L Normal 46-116 [facility] Comment on above: Performed By: #### ERICK Jacques, PHOS #### [facility] [address] [place] [address] Dr. David Magana ALT [Catalytic activity/Vol] 25 U/L Normal 16-63 [facility] Comment on above: Performed By: #### ERICK Jacques, PHOS #### [facility] [address] [place] [address] Dr. David Magana Anion gap [Moles/Vol] 12.8 mmol/L Normal [facility] Comment on above: Performed By: #### M Marcell BMP, PHOS #### [facility] [address] [place] [address] Dr. David Magana AST [Catalytic activity/Vol] 9 U/L Critically low 15-37 [facility] Comment on above: Performed By: #### Jim Faith BMP, PHOS #### [facility] [address] [address] [address] David Magana Bilirubin [Mass/Vol] 0.5 mg/dL Normal 0.2-1.0 [facility] Comment on above: Performed By: #### M G, BMP, PHOS #### [facility] [address] [address] [address] David Magana Calcium [Mass/Vol] 8.3 mg/dL Critically low 8.5-10.1 [facility] Comment on above: Performed By: #### M G, BMP, PHOS #### [facility] [address] [address] [address] David Magana Chloride [Moles/Vol] 105 mmol/L Normal 98-107 [facility] Comment on above: Performed By: #### M G, BMP, PHOS #### [facility] [address] [place] [address] Dr. David Magana CO2 [Moles/Vol] 24.2 mmol/L Normal 21.0-32.0 [facility] Comment on above: Performed By: #### M G, BMP, PHOS #### [facility] [address] [address] [address] David Magana Creatinine [Mass/Vol] 1.28 mg/dL Normal 0.70-1.30 [facility] Comment on above: Performed By: #### M G, BMP, PHOS #### [facility] [address] [address] [address] David Magana EGFR-AF KOSOVAN >60 Normal >=60 [facility] Comment on above: Performed By: #### M G, BMP, PHOS #### [facility] [address] [address] [address] David Magana EGFR-NON AF KOSOVAN 54 mL/min/1.73m2 Critically low >=60 [facility] Comment on above: Performed By: #### M G, BMP, PHOS #### [facility] [address] [address] [address] David Magana Globulin (S) [Mass/Vol] 2.9 g/dL Normal [facility] Comment on above: Performed By: #### M ERICK Faith, PHOS #### [facility] [address] [address] [address] David Magana Glucose [Mass/Vol] 205 mg/dL Critically high 74-106 [facility] Comment on above: Performed By: #### M ERICK Faith, PHOS #### [facility] [address] [place] [address] Dr. David Magana Potassium [Moles/Vol] 4.0 mmol/L Normal 3.5-5.1 [facility] Comment on above: Performed By: #### ERICK Jacques, PHOS #### [facility] [address] [place] [address] Dr. David Magana Protein [Mass/Vol] 5.5 g/dL Critically low 6.4-8.2 Th [facility] Comment on above: Performed By: #### ERICK Jacques, PHOS #### [facility] [address] [place] [address] Dr. David Magana Sodium [Moles/Vol] 138 mmol/L Normal 136-145 [facility] Comment on above: Performed By: #### ERICK Jacques, PHOS #### [facility] [address] [place] [address] Dr. David Magana Urea nitrogen [Mass/Vol] 36.0 mg/dL Critically high 7.0-18.0 [facility] Comment on above: Performed By: #### ERICK Jacques, PHOS #### [facility] [address] [place] [address] Dr. David Magana Urea nitrogen/Creatinine [Mass ratio] 28.1 mg/mg Normal [facility] Comment on above: Performed By: #### ERICK Jacques, PHOS #### [facility] [address] [place] [address] Dr. David Magana BNPon 07-21-2022 Natriuretic peptide B (Bld) [Mass/Vol] 3485.0 pg/mL Critically high <=1,800.0 [facility] Comment on above: Result Comment: repe ated Performed By: #### A 1C #### [facility] [address] [address] [address] David Magana CBC AUTO DIFFon 07-21-2022 BASO # 0.0 103/ul Normal 0.0-0.1 [facility] Comment on above: Performed By: #### C BC #### [facility] [address] [address] [address] David Magana Basophils/100 WBC (Bld) 0.3 % Normal 0.2-2.0 [facility] Comment on above: Performed By: #### C BC #### [facility] [address] [address] [address] David Magana EO # 0.2 103/ul Normal 0.0-0.7 [facility] Comment on above: Performed By: #### C BC #### [facility] [address] [place] [address] Dr. David Magana Eosinophils/100 WBC (Bld) 1.9 % Normal 0.9-7.0 [facility] Comment on above: Performed By: #### C BC #### [facility] [address] [address] [address] David Magana Erythrocyte distribution width (RBC) [Ratio] 13.4 % Normal 11.0-15.0 [facility] Comment on above: Performed By: #### C BC #### [facility] [address] [place] [address] Dr. David Magana Hematocrit (Bld) [Volume fraction] 42.5 % Normal 42.0-54.0 [facility] Comment on above: Performed By: #### C BC #### [facility] [address] [address] [address] David Magana Hemoglobin (Bld) [Mass/Vol] 14.2 g/dL Normal 14.0-18.0 [facility] Comment on above: Performed By: #### C BC #### [facility] [address] [address] [address] David Magana IG # 0.22 10e3/ul Critically high 0.00-0.03 [facility] Comment on above: Performed By: #### C BC #### [facility] [address] [address] [address] David Magana IG % 2.1 % Critically high 0.0-0.5 [facility] Comment on above: Performed By: #### C BC #### [facility] [address] [address] [address] David Magana LYMPH # 0.8 103/ul Critically low 1.2-3.8 [facility] Comment on above: Performed By: #### C BC #### [facility] [address] [place] [address] Dr. David Magana Lymphocytes/100 WBC (Bld) 7.7 % Critically low 20.5-60.0 [facility] Comment on above: Performed By: #### C BC #### [facility] [address] [place] [address] Dr. David Magana MANUAL DIFF REQ NO Normal [facility] Comment on above: Performed By: #### C BC #### [facility] [address] [address] [address] David Magana MCH (RBC) [Entitic mass] 33.0 pg Normal 25.9-34.0 [facility] Comment on above: Performed By: #### C BC #### [facility] [address] [place] [address] Dr. David Magana MCHC (RBC) [Mass/Vol] 33.4 g/dL Normal 29.9-35.2 [facility] Comment on above: Performed By: #### C BC #### [facility] [address] [place] [address] Dr. David Magana MCV (RBC) [Entitic vol] 98.8 fL Critically high 80.0-94.0 [facility] Comment on above: Performed By: #### C BC #### [facility] [address] [place] [address] Dr. David Magana MONO # 1.0 103/ul Critically high 0.3-0.8 [facility] Comment on above: Performed By: #### C BC #### [facility] [address] [address] [address] David Magana Monocytes/100 WBC (Bld) 9.7 % Normal 1.7-12.0 [facility] Comment on above: Performed By: #### C BC #### [facility] [address] [address] [address] David Magana NEUT # 8.1 103/ul Critically high 1.4-6.5 [facility] Comment on above: Performed By: #### C BC #### [facility] [address] [place] [address] Dr. David Magana Neutrophils/100 WBC (Bld) 78.3 % Critically high 43.0-75.0 [facility] Comment on above: Performed By: #### C BC #### [facility] [address] [place] [address] Dr. David Magana Platelet mean volume (Bld) [Entitic vol] 10.7 fL Normal 9.5-13.5 [facility] Comment on above: Performed By: #### C BC #### [facility] [address] [place] [address] Dr. David Magana PLT 177 103/ul Normal 150-450 [facility] Comment on above: Performed By: #### C BC #### [facility] [address] [place] [address] Dr. David Magana RBC 4.30 106/ul Critically low 4.70-6.10 [facility] Comment on above: Performed By: #### C BC #### [facility] [address] [place] [address] Dr. David Magana WBC 10.4 103/ul Normal 4.0-11.0 [facility] Comment on above: Performed By: #### C BC #### [facility] [address] [place] [address] Dr. David Magana PROF 14(COMP METB)on 022 Albumin [Mass/Vol] 2.6 g/dL Critically low 3.4-5.0 [facility] Comment on above: Performed By: #### A 1C #### [facility] [address] [address] [address] David Magana Albumin/Globulin [Mass ratio] 1.0 {ratio} Normal [facility] Comment on above: Performed By: #### A 1C #### [facility] [address] [place] [address] Dr. David Magana ALP [Catalytic activity/Vol] 50 U/L Normal 46-116 [facility] Comment on above: Performed By: #### A 1C #### [facility] [address] [place] [address] Dr. David Magana ALT [Catalytic activity/Vol] 28 U/L Normal 16-63 [facility] Comment on above: Performed By: #### A 1C #### [facility] [address] [place] [address] Dr. David Magana Anion gap [Moles/Vol] 11.4 mmol/L Normal [facility] Comment on above: Performed By: #### A 1C #### [facility] [address] [place] [address] Dr. David Magana AST [Catalytic activity/Vol] 13 U/L Critically low 15-37 [facility] Comment on above: Performed By: #### A 1C #### [facility] [address] [place] [address] Dr. David Magana Bilirubin [Mass/Vol] 0.4 mg/dL Normal 0.2-1.0 [facility] Comment on above: Performed By: #### A 1C #### [facility] [address] [place] [address] Dr. David Magana Calcium [Mass/Vol] 8.4 mg/dL Critically low 8.5-10.1 [facility] Comment on above: Performed By: #### A 1C #### [facility] [address] [place] [address] Dr. David Magana Chloride [Moles/Vol] 107 mmol/L Normal 98-107 [facility] Comment on above: Performed By: #### A 1C #### [facility] [address] [address] [address] David Magana CO2 [Moles/Vol] 24.6 mmol/L Normal 21.0-32.0 [facility] Comment on above: Performed By: #### A 1C #### [facility] [address] [place] [address] Dr. David Magana Creatinine [Mass/Vol] 1.26 mg/dL Normal 0.70-1.30 [facility] Comment on above: Performed By: #### A 1C #### [facility] [address] [place] [address] Dr. David Magana EGFR-AF KOSOVAN >60 Normal >=60 [facility] Comment on above: Performed By: #### A 1C #### [facility] [address] [place] [address] Dr. David Magana EGFR-NON AF KOSOVAN 55 mL/min/1.73m2 Critically low >=60 [facility] Comment on above: Performed By: #### A 1C #### [facility] [address] [place] [address] Dr. David Magana Globulin (S) [Mass/Vol] 2.7 g/dL Normal [facility] Comment on above: Performed By: #### A 1C #### [facility] [address] [place] [address] Dr. David Magana Glucose [Mass/Vol] 203 mg/dL Critically high 74-106 T [facility] Comment on above: Performed By: #### A 1C #### [facility] [address] [place] [address] Dr. David Magana Potassium [Moles/Vol] 4.0 mmol/L Normal 3.5-5.1 [facility] Comment on above: Performed By: #### A 1C #### [facility] [address] [place] [address] Dr. David Magana Protein [Mass/Vol] 5.3 g/dL Critically low 6.4-8.2 Th [facility] Comment on above: Performed By: #### A 1C #### [facility] [address] [place] [address] Dr. David Magana Sodium [Moles/Vol] 139 mmol/L Normal 136-145 [facility] Comment on above: Performed By: #### A 1C #### [facility] [address] [place] [address] Dr. David Magana Urea nitrogen [Mass/Vol] 33.0 mg/dL Critically high 7.0-18.0 [facility] Comment on above: Performed By: #### A 1C #### [facility] [address] [place] [address] Dr. David Magana Urea nitrogen/Creatinine [Mass ratio] 26.2 mg/mg Normal [facility] Comment on above: Performed By: #### A 1C #### [facility] [address] [place] [address] Dr. David Magana BNPon 07-20-2022 Natriuretic peptide B (Bld) [Mass/Vol] 7478.0 pg/mL Critically high <=1,800.0 [facility] Comment on above: Performed By: #### A 1C #### [facility] [address] [place] [address] Dr. David Magana CBC AUTO DIFFon 07-20-2022 BASO # 0.1 103/ul Normal 0.0-0.1 [facility] Comment on above: Performed By: #### ERICK Jacques, PHOS #### [facility] [address] [place] [address] Dr. David Magana Basophils/100 WBC (Bld) 0.8 % Normal 0.2-2.0 [facility] Comment on above: Performed By: #### ERICK Jacques, PHOS #### [facility] [address] [place] [address] Dr. David Magana EO # 0.1 103/ul Normal 0.0-0.7 [facility] Comment on above: Performed By: #### ERICK Jacques, PHOS #### [facility] [address] [place] [address] Dr. David Magana Eosinophils/100 WBC (Bld) 0.6 % Critically low 0.9-7.0 [facility] Comment on above: Performed By: #### M ERICK Faith, PHOS #### [facility] [address] [place] [address] Dr. David Magana Erythrocyte distribution width (RBC) [Ratio] 13.4 % Normal 11.0-15.0 [facility] Comment on above: Performed By: #### M ERICK Faith, PHOS #### [facility] [address] [place] [address] Dr. David Magana Hematocrit (Bld) [Volume fraction] 43.2 % Normal 42.0-54.0 [facility] Comment on above: Performed By: #### ERICK Jacques, PHOS #### [facility] [address] [place] [address] Dr. David Magana Hemoglobin (Bld) [Mass/Vol] 14.2 g/dL Normal 14.0-18.0 [facility] Comment on above: Performed By: #### ERICK Jacques, PHOS #### [facility] [address] [place] [address] Dr. David Magana IG # 0.21 10e3/ul Critically high 0.00-0.03 [facility] Comment on above: Performed By: #### ERICK Jacques, PHOS #### [facility] [address] [place] [address] Dr. David Magana IG % 2.0 % Critically high 0.0-0.5 [facility] Comment on above: Performed By: #### ERICK Jacques, PHOS #### [facility] [address] [place] [address] Dr. David Magana LYMPH # 0.8 103/ul Critically low 1.2-3.8 [facility] Comment on above: Performed By: #### ERICK Jacques, PHOS #### [facility] [address] [place] [address] Dr. David Magana Lymphocytes/100 WBC (Bld) 7.7 % Critically low 20.5-60.0 [facility] Comment on above: Performed By: #### ERICK Jacques, PHOS #### [facility] [address] [place] [address] Dr. David Magana MANUAL DIFF REQ NO Normal [facility] Comment on above: Performed By: #### ERICK Jacques, PHOS #### [facility] [address] [place] [address] Dr. David Magana MCH (RBC) [Entitic mass] 33.2 pg Normal 25.9-34.0 [facility] Comment on above: Performed By: #### ERICK Jacques, PHOS #### [facility] [address] [place] [address] Dr. David Magana MCHC (RBC) [Mass/Vol] 32.9 g/dL Normal 29.9-35.2 [facility] Comment on above: Performed By: #### ERICK Jacques, PHOS #### [facility] [address] [place] [address] Dr. David Magana MCV (RBC) [Entitic vol] 100.9 fL Critically high 80.0-94.0 [facility] Comment on above: Performed By: #### ERICK Jacques, PHOS #### [facility] [address] [place] [address] Dr. David Magana MONO # 1.0 103/ul Critically high 0.3-0.8 [facility] Comment on above: Performed By: #### ERICK Jacques, PHOS #### [facility] [address] [place] [address] Dr. David Magana Monocytes/100 WBC (Bld) 10.0 % Normal 1.7-12.0 [facility] Comment on above: Performed By: #### M Marcell BMP, PHOS #### [facility] [address] [place] [address] Dr. David Magana NEUT # 8.1 103/ul Critically high 1.4-6.5 [facility] Comment on above: Performed By: #### M Marcell BMP, PHOS #### [facility] [address] [place] [address] Dr. David Magana Neutrophils/100 WBC (Bld) 78.9 % Critically high 43.0-75.0 [facility] Comment on above: Performed By: #### ERICK Jacques, PHOS #### [facility] [address] [place] [address] Dr. David Magana Platelet mean volume (Bld) [Entitic vol] 10.8 fL Normal 9.5-13.5 [facility] Comment on above: Performed By: #### ERICK Jacques, PHOS #### [facility] [address] [place] [address] Dr. David Magana PLT 172 103/ul Normal 150-450 [facility] Comment on above: Performed By: #### ERICK Jacques, PHOS #### [facility] [address] [place] [address] Dr. David Magana RBC 4.28 106/ul Critically low 4.70-6.10 [facility] Comment on above: Performed By: #### ERICK Jacques, PHOS #### [facility] [address] [place] [address] Dr. David Magana WBC 10.3 103/ul Normal 4.0-11.0 [facility] Comment on above: Performed By: #### ERICK Jacques, PHOS #### [facility] [address] [place] [address] Dr. David Magana CULTURE URINEon 07-20-2022 CULTURE [...] F Trimethoprim/Sulfameth oxazole >=320 R F Normal [facility] Comment on above: Performed By: #### ERICK Jacques, PHOS #### [facility] [address] [place] [address] Dr. David Magana PROF 14(COMP METB)on 022 Albumin [Mass/Vol] 2.6 g/dL Critically low 3.4-5.0 [facility] Comment on above: Performed By: #### A 1C #### [facility] [address] [place] [address] Dr. David Magana Albumin/Globulin [Mass ratio] 0.9 {ratio} Normal [facility] Comment on above: Performed By: #### A 1C #### [facility] [address] [place] [address] Dr. David Magana ALP [Catalytic activity/Vol] 48 U/L Normal 46-116 [facility] Comment on above: Performed By: #### A 1C #### [facility] [address] [place] [address] Dr. David Magana ALT [Catalytic activity/Vol] 27 U/L Normal 16-63 [facility] Comment on above: Performed By: #### A 1C #### [facility] [address] [place] [address] Dr. David Magana Anion gap [Moles/Vol] 13.4 mmol/L Normal [facility] Comment on above: Performed By: #### A 1C #### [facility] [address] [place] [address] Dr. David Magana AST [Catalytic activity/Vol] 22 U/L Normal 15-37 [facility] Comment on above: Performed By: #### A 1C #### [facility] [address] [place] [address] Dr. David Magana Bilirubin [Mass/Vol] 0.5 mg/dL Normal 0.2-1.0 [facility] Comment on above: Performed By: #### A 1C #### [facility] [address] [place] [address] Dr. David Magana Calcium [Mass/Vol] 8.3 mg/dL Critically low 8.5-10.1 [facility] Comment on above: Performed By: #### A 1C #### [facility] [address] [address] [address] David Magana Chloride [Moles/Vol] 105 mmol/L Normal 98-107 [facility] Comment on above: Performed By: #### A 1C #### [facility] [address] [address] [address] David Magana CO2 [Moles/Vol] 21.0 mmol/L Normal 21.0-32.0 [facility] Comment on above: Performed By: #### A 1C #### [facility] [address] [place] [address] Dr. David Magana Creatinine [Mass/Vol] 1.38 mg/dL Critically high 0.70-1.30 [facility] Comment on above: Performed By: #### A 1C #### [facility] [address] [place] [address] Dr. David Magana EGFR-AF KOSOVAN 60 mL/min/1.73m2 Normal >=60 [facility] Comment on above: Performed By: #### A 1C #### [facility] [address] [place] [address] Dr. David Magana EGFR-NON AF KOSOVAN 49 mL/min/1.73m2 Critically low >=60 [facility] Comment on above: Performed By: #### A 1C #### [facility] [address] [place] [address] Dr. David Magana Globulin (S) [Mass/Vol] 2.8 g/dL Normal [facility] Comment on above: Performed By: #### A 1C #### [facility] [address] [place] [address] Dr. David Magana Glucose [Mass/Vol] 156 mg/dL Critically high 74-106 T [facility] Comment on above: Performed By: #### A 1C #### [facility] [address] [place] [address] Dr. David Magana Potassium [Moles/Vol] 4.4 mmol/L Normal 3.5-5.1 [facility] Comment on above: Performed By: #### A 1C #### [facility] [address] [place] [address] Dr. David Magana Protein [Mass/Vol] 5.4 g/dL Critically low 6.4-8.2 Th [facility] Comment on above: Performed By: #### A 1C #### [facility] [address] [place] [address] Dr. David Magana Sodium [Moles/Vol] 135 mmol/L Critically low 136-145 Th [facility] Comment on above: Performed By: #### A 1C #### [facility] [address] [place] [address] Dr. David Magana Urea nitrogen [Mass/Vol] 40.0 mg/dL Critically high 7.0-18.0 [facility] Comment on above: Performed By: #### A 1C #### [facility] [address] [place] [address] Dr. David Magana Urea nitrogen/Creatinine [Mass ratio] 29.0 mg/mg Normal [facility] Comment on above: Performed By: #### A 1C #### [facility] [address] [place] [address] Dr. David Magana BNPon 07-19-2022 Natriuretic peptide B (Bld) [Mass/Vol] 16036.0 pg/mL Critically high <=1,800.0 [facility] Comment on above: Performed By: #### C VDTB #### [facility] [address] [place] [address] Dr. David Magana CBC AUTO DIFFon 07-19-2022 BASO # 0.0 103/ul Normal 0.0-0.1 [facility] Comment on above: Performed By: #### C BC #### [facility] [address] [place] [address] Dr. David Magana Basophils/100 WBC (Bld) 0.3 % Normal 0.2-2.0 [facility] Comment on above: Performed By: #### C BC #### [facility] [address] [place] [address] Dr. David Magana EO # 0.0 103/ul Normal 0.0-0.7 [facility] Comment on above: Performed By: #### C BC #### [facility] [address] [address] [address] David Magana Eosinophils/100 WBC (Bld) 0.2 % Critically low 0.9-7.0 [facility] Comment on above: Performed By: #### C BC #### [facility] [address] [address] [address] David Magana Erythrocyte distribution width (RBC) [Ratio] 13.4 % Normal 11.0-15.0 [facility] Comment on above: Performed By: #### C BC #### [facility] [address] [place] [address] Dr. David Magana Hematocrit (Bld) [Volume fraction] 43.4 % Normal 42.0-54.0 [facility] Comment on above: Performed By: #### C BC #### [facility] [address] [place] [address] Dr. David Magana Hemoglobin (Bld) [Mass/Vol] 14.6 g/dL Normal 14.0-18.0 [facility] Comment on above: Performed By: #### C BC #### [facility] [address] [place] [address] Dr. David Magana IG # 0.18 10e3/ul Critically high 0.00-0.03 [facility] Comment on above: Performed By: #### C BC #### [facility] [address] [place] [address] Dr. David Magana IG % 1.5 % Critically high 0.0-0.5 [facility] Comment on above: Performed By: #### C BC #### [facility] [address] [place] [address] Dr. David Magana LYMPH # 0.8 103/ul Critically low 1.2-3.8 [facility] Comment on above: Performed By: #### C BC #### [facility] [address] [place] [address] Dr. David Magana Lymphocytes/100 WBC (Bld) 6.6 % Critically low 20.5-60.0 [facility] Comment on above: Performed By: #### C BC #### [facility] [address] [place] [address] Dr. David Magana MANUAL DIFF REQ NO Normal [facility] Comment on above: Performed By: #### C BC #### [facility] [address] [place] [address] Dr. David Magana MCH (RBC) [Entitic mass] 33.7 pg Normal 25.9-34.0 [facility] Comment on above: Performed By: #### C BC #### [facility] [address] [place] [address] Dr. David Magana MCHC (RBC) [Mass/Vol] 33.6 g/dL Normal 29.9-35.2 [facility] Comment on above: Performed By: #### C BC #### [facility] [address] [place] [address] Dr. David Magana MCV (RBC) [Entitic vol] 100.2 fL Critically high 80.0-94.0 [facility] Comment on above: Performed By: #### C BC #### [facility] [address] [place] [address] Dr. David Magana MONO # 1.1 103/ul Critically high 0.3-0.8 [facility] Comment on above: Performed By: #### C BC #### [facility] [address] [place] [address] Dr. David Magana Monocytes/100 WBC (Bld) 9.3 % Normal 1.7-12.0 [facility] Comment on above: Performed By: #### C BC #### [facility] [address] [place] [address] Dr. David Magana NEUT # 9.6 103/ul Critically high 1.4-6.5 [facility] Comment on above: Performed By: #### C BC #### [facility] [address] [place] [address] Dr. David Magana Neutrophils/100 WBC (Bld) 82.1 % Critically high 43.0-75.0 [facility] Comment on above: Performed By: #### C BC #### [facility] [address] [place] [address] Dr. David Magana Platelet mean volume (Bld) [Entitic vol] 10.8 fL Normal 9.5-13.5 [facility] Comment on above: Performed By: #### C BC #### [facility] [address] [address] [address] David Magana PLT 202 103/ul Normal 150-450 [facility] Comment on above: Performed By: #### C BC #### [facility] [address] [place] [address] Dr. David Magana RBC 4.33 106/ul Critically low 4.70-6.10 [facility] Comment on above: Performed By: #### C BC #### [facility] [address] [place] [address] Dr. David Magana WBC 11.7 103/ul Critically high 4.0-11.0 [facility] Comment on above: Performed By: #### C BC #### [facility] [address] [place] [address] Dr. David Magana PROF 14(COMP METB)on 022 Albumin [Mass/Vol] 3.4 g/dL Normal 3.4-5.0 [facility] Comment on above: Performed By: #### A 1C #### [facility] [address] [place] [address] Dr. David Magana Albumin/Globulin [Mass ratio] 1.1 {ratio} Normal [facility] Comment on above: Performed By: #### A 1C #### [facility] [address] [place] [address] Dr. David Magana ALP [Catalytic activity/Vol] 63 U/L Normal 46-116 [facility] Comment on above: Performed By: #### A 1C #### [facility] [address] [place] [address] Dr. David Magana ALT [Catalytic activity/Vol] 34 U/L Normal 16-63 [facility] Comment on above: Performed By: #### A 1C #### [facility] [address] [address] [address] David Magana Anion gap [Moles/Vol] 20.9 mmol/L Normal Th [facility] Comment on above: Performed By: #### A 1C #### [facility] [address] [place] [address] Dr. David Magana AST [Catalytic activity/Vol] 18 U/L Normal 15-37 [facility] Comment on above: Performed By: #### A 1C #### [facility] [address] [place] [address] Dr. David Magana Bilirubin [Mass/Vol] 0.5 mg/dL Normal 0.2-1.0 [facility] Comment on above: Performed By: #### A 1C #### [facility] [address] [place] [address] Dr. David Magana Calcium [Mass/Vol] 8.5 mg/dL Normal 8.5-10.1 [facility] Comment on above: Performed By: #### A 1C #### [facility] [address] [place] [address] Dr. David Magana Chloride [Moles/Vol] 99 mmol/L Normal 98-107 [facility] Comment on above: Performed By: #### A 1C #### [facility] [address] [place] [address] Dr. David Magana CO2 [Moles/Vol] 19.1 mmol/L Critically low 21.0-32.0 [facility] Comment on above: Performed By: #### A 1C #### [facility] [address] [place] [address] Dr. David Magana Creatinine [Mass/Vol] 1.80 mg/dL Critically high 0.70-1.30 [facility] Comment on above: Performed By: #### A 1C #### [facility] [address] [place] [address] Dr. David Magana EGFR-AF KOSOVAN 44 mL/min/1.73m2 Critically low >=60 [facility] Comment on above: Performed By: #### A 1C #### [facility] [address] [place] [address] Dr. David Magana EGFR-NON AF KOSOVAN 36 mL/min/1.73m2 Critically low >=60 [facility] Comment on above: Performed By: #### A 1C #### [facility] [address] [place] [address] Dr. David Magana Globulin (S) [Mass/Vol] 3.2 g/dL Normal [facility] Comment on above: Performed By: #### A 1C #### [facility] [address] [address] [address] David Magana Glucose [Mass/Vol] 287 mg/dL Critically high 74-106 T [facility] Comment on above: Performed By: #### A 1C #### [facility] [address] [place] [address] Dr. David Magana Potassium [Moles/Vol] 5.0 mmol/L Normal 3.5-5.1 [facility] Comment on above: Performed By: #### A 1C #### [facility] [address] [place] [address] Dr. David Magana Protein [Mass/Vol] 6.6 g/dL Normal 6.4-8.2 [facility] Comment on above: Performed By: #### A 1C #### [facility] [address] [place] [address] Dr. David Magana Sodium [Moles/Vol] 134 mmol/L Critically low 136-145 Th [facility] Comment on above: Performed By: #### A 1C #### [facility] [address] [place] [address] Dr. David Magana Urea nitrogen [Mass/Vol] 51.0 mg/dL Critically high 7.0-18.0 [facility] Comment on above: Performed By: #### A 1C #### [facility] [address] [place] [address] Dr. David Magana Urea nitrogen/Creatinine [Mass ratio] 28.3 mg/mg Normal [facility] Comment on above: Performed By: #### A 1C #### [facility] [address] [place] [address] Dr. David Mag[facility] 02 MODE NASAL CANNULA Normal [facility] Comment on above: Performed By: #### A 1C #### [facility] [address] [place] [address] Dr. David Magana ALLENS TEST Positive [facility] Comment on above: Performed By: #### A 1C #### [facility] [address] [place] [address] Dr. David Magana Base excess Calc (Bld) [Moles/Vol] -9.0000 mmol/L Critically low -2.0-2.0 [facility] Comment on above: Performed By: #### A 1C #### [facility] [address] [place] [address] Dr. David Magana BIPAP PRESSURE [facility] Comment on above: Performed By: #### A 1C #### [facility] [address] [place] [address] Dr. David Magana CPAP [facility] Comment on above: Performed By: #### A 1C #### [facility] [address] [place] [address] Dr. David Magana FIO2 [facility] Comment on above: Performed By: #### A 1C #### [facility] [address] [place] [address] Dr. David Magana HCO3 (Bld) [Moles/Vol] 18.4 mmol/L Critically low 22.0-26.0 [facility] Comment on above: Performed By: #### A 1C #### [facility] [address] [place] [address] Dr. David Magana LPM 1.5 [facility] Comment on above: Performed By: #### A 1C #### [facility] [address] [place] [address] Dr. David Magana MINUTE VOLUME Normal [facility] Comment on above: Performed By: #### A 1C #### [facility] [address] [place] [address] Dr. David Magana Oxygen (Bld) [Partial pressure] 69.5 mm[Hg] Critically low 80.0-100.0 [facility] Comment on above: Performed By: #### A 1C #### [facility] [address] [place] [address] Dr. Dvaid Magana Oxygen saturation in Blood 94.2 % Critically low 95.0-100.0 [facility] Comment on above: Performed By: #### A 1C #### [facility] [address] [place] [address] Dr. David Magana PCO2 29.6 mmHg Critically low 35.0-45.0 [facility] Comment on above: Performed By: #### A 1C #### [facility] [address] [place] [address] Dr. David Magana [facility] Comment on above: Performed By: #### A 1C #### [facility] [address] [place] [address] Dr. David Magana pH (Bld) 7.355 [pH] Normal 7.350-7.450 [facility] Comment on above: Performed By: #### A 1C #### [facility] [address] [place] [address] Dr. David Magana [facility] Comment on above: Performed By: #### A 1C #### [facility] [address] [place] [address] Dr. David Magana [facility] Comment on above: Performed By: #### A 1C #### [facility] [address] [place] [address] Dr. David Magana PUNCTURE SITE LR [facility] Comment on above: Performed By: #### A 1C #### [facility] [address] [place] [address] Dr. David Magana RATE [facility] Comment on above: Performed By: #### A 1C #### [facility] [address] [place] [address] Dr. David Magana VENT MODE [facility] Comment on above: Performed By: #### A 1C #### [facility] [address] [place] [address] Dr. David Magana [facility] Comment on above: Performed By: #### A 1C #### [facility] [address] [place] [address] Dr. David Magana BNPon 07-18-2022 Natriuretic peptide B (Bld) [Mass/Vol] 7047.0 pg/mL Critically high <=1,800.0 [facility] Comment on above: Performed By: #### C VDTBH #### [facility] [address] [place] [address] Dr. David Magana CARDIAC BARRIE 3-6on 2 CK [Catalytic activity/Vol] 396 U/L Critically high 39-308 [facility] Comment on above: Performed By: #### M ERICK Faith, PHOS #### [facility] [address] [place] [address] Dr. David Magana CK.MB [Mass/Vol] 2.94 ng/mL Normal <=3.60 [facility] Comment on above: Performed By: #### ERICK Jacques, PHOS #### [facility] [address] [place] [address] Dr. David Magana HSTROP 11.1 pg/mL Normal 4.0-76.1 [facility] Comment on above: Result Comment: CUT- OFF POINTS HAVE BEEN ESTABLISHED BASED ON THE FOURTH UNIVERSAL DEFINITIONS OF MYOCARDIAL INFARCTION. THE UPPER REFERENCE LIMIT (URL) OF TROPONIN, DEFINED THE 99TH PERCENTILE OF cTnI DISTRIBUTION IN A REFERENCE POPULATION, HAS BEEN CONFIRMED THE DECISION THRESHOLD FOR [place] DIAGNOSIS. Performed By: #### ERICK Jacques, PHOS #### [facility] [address] [place] [address] Dr. David Magana CK [Catalytic activity/Vol] 58 U/L Normal 39-308 [facility] Comment on above: Performed By: #### M ERICK Faith, PHOS #### [facility] [address] [place] [address] Dr. David Magana CK.MB [Mass/Vol] 1.71 ng/mL Normal <=3.60 [facility] Comment on above: Performed By: #### ERICK Jacques, PHOS #### [facility] [address] [address] [address] David Magana HSTROP 10.6 pg/mL Normal 4.0-76.1 [facility] Comment on above: Result Comment: CUT- OFF POINTS HAVE BEEN ESTABLISHED BASED ON THE FOURTH UNIVERSAL DEFINITIONS OF MYOCARDIAL INFARCTION. THE UPPER REFERENCE LIMIT (URL) OF TROPONIN, DEFINED THE 99TH PERCENTILE OF cTnI DISTRIBUTION IN A REFERENCE POPULATION, HAS BEEN CONFIRMED THE DECISION THRESHOLD FOR VT DIAGNOSIS. Performed By: #### M G BMP, PHOS #### [facility] [address] [address] [address] David Magana CBC AUTO DIFFon 07-18-2022 BASO # 0.0 103/ul Normal 0.0-0.1 [facility] Comment on above: Performed By: #### M Marcell BMP, PHOS #### [facility] [address] [place] [address] Dr. David Magana Basophils/100 WBC (Bld) 0.2 % Normal 0.2-2.0 [facility] Comment on above: Performed By: #### M G BMP, PHOS #### [facility] [address] [address] [address] David Magana EO # 0.0 103/ul Normal 0.0-0.7 [facility] Comment on above: Performed By: #### M G BMP, PHOS #### [facility] [address] [address] [address] David Magana Eosinophils/100 WBC (Bld) 0.2 % Critically low 0.9-7.0 [facility] Comment on above: Performed By: #### M G, BMP, PHOS #### [facility] [address] [address] [address] David Magana Erythrocyte distribution width (RBC) [Ratio] 13.2 % Normal 11.0-15.0 [facility] Comment on above: Performed By: #### M G, BMP, PHOS #### [facility] [address] [address] [address] David Magana Hematocrit (Bld) [Volume fraction] 43.8 % Normal 42.0-54.0 [facility] Comment on above: Performed By: #### M ERICK Faith, PHOS #### [facility] [address] [place] [address] Dr. David Magana Hemoglobin (Bld) [Mass/Vol] 14.5 g/dL Normal 14.0-18.0 [facility] Comment on above: Performed By: #### ERICK Jacques, PHOS #### [facility] [address] [place] [address] Dr. David Magana IG # 0.15 10e3/ul Critically high 0.00-0.03 [facility] Comment on above: Performed By: #### ERICK Jacques, PHOS #### [facility] [address] [place] [address] Dr. David Magana IG % 1.3 % Critically high 0.0-0.5 [facility] Comment on above: Performed By: #### ERICK Jacques, PHOS #### [facility] [address] [place] [address] Dr. David Magana LYMPH # 0.5 103/ul Critically low 1.2-3.8 [facility] Comment on above: Performed By: #### ERICK Jacques, PHOS #### [facility] [address] [place] [address] Dr. David Magana Lymphocytes/100 WBC (Bld) 3.8 % Critically low 20.5-60.0 [facility] Comment on above: Performed By: #### ERICK Jacques, PHOS #### [facility] [address] [place] [address] Dr. David Magana MANUAL DIFF REQ NO Normal [facility] Comment on above: Performed By: #### ERICK Jacques, PHOS #### [facility] [address] [place] [address] Dr. David Magana MCH (RBC) [Entitic mass] 32.7 pg Normal 25.9-34.0 [facility] Comment on above: Performed By: #### ERICK Jacques, PHOS #### [facility] [address] [place] [address] Dr. David Magana MCHC (RBC) [Mass/Vol] 33.1 g/dL Normal 29.9-35.2 [facility] Comment on above: Performed By: #### M G, BMP, PHOS #### [facility] [address] [place] [address] Dr. David Magana MCV (RBC) [Entitic vol] 98.9 fL Critically high 80.0-94.0 [facility] Comment on above: Performed By: #### M G, BMP, PHOS #### [facility] [address] [place] [address] Dr. David Magana MONO # 0.7 103/ul Normal 0.3-0.8 [facility] Comment on above: Performed By: #### M G, BMP, PHOS #### [facility] [address] [place] [address] Dr. David Magana Monocytes/100 WBC (Bld) 5.7 % Normal 1.7-12.0 [facility] Comment on above: Performed By: #### M G, BMP, PHOS #### [facility] [address] [place] [address] Dr. David Magana NEUT # 10.4 103/ul Critically high 1.4-6.5 [facility] Comment on above: Performed By: #### M G, BMP, PHOS #### [facility] [address] [place] [address] Dr. David Magana Neutrophils/100 WBC (Bld) 88.8 % Critically high 43.0-75.0 [facility] Comment on above: Performed By: #### M G, BMP, PHOS #### [facility] [address] [place] [address] Dr. David Magana Platelet mean volume (Bld) [Entitic vol] 11.0 fL Normal 9.5-13.5 [facility] Comment on above: Performed By: #### M G, BMP, PHOS #### [facility] [address] [place] [address] Dr. David Magana PLT 198 103/ul Normal 150-450 [facility] Comment on above: Performed By: #### M ERICK Faith, PHOS #### [facility] [address] [place], [place] [address] Dr. David Magana RBC 4.43 106/ul Critically low 4.70-6.10 [facility] Comment on above: Performed By: #### M ERICK Faith, PHOS #### [facility] [address] [place], [place] [address] Dr. David Magana WBC 11.8 103/ul Critically high 4.0-11.0 [facility] Comment on above: Performed By: #### M ERICK Faith, PHOS #### [facility] [address] [place], [place] [address] HEAD WO CONon [...] FRANCISCO ZELAYA Date: 2022-07-18 05:12 Normal [facility] Covid-19 PCR (CVDTBH)on SARS-CoV-2 (COVID-19) RNA SULTANA+probe Ql (Unsp spec) Detected Critically abnormal NOT DETECTED [facility] Comment on above: Result Comment: This test is not yet approved or cleared by the [place] FDA. When there are no FDA-approved or cleared tests available, and other criteria are met, FDA can make tests available under an emergency access mechanism called an Emergency Use Authorization (EUA). The EUA for this test is supported by the [place] Att[employer] of Health and Human Service's declaration that [...] used). Performed By: #### C VDTBH #### [facility] [address] [place] [address] Dr. David Magana D-DIMERon 07-18-2022 D-DIMER 1.69 mg/L FEU Critically high <=0.59 [facility] Comment on above: Performed By: #### C BC #### [facility] [address] [place] [address] Dr. David Magana D-DIMER COMMENTS SEE BELOW Normal [facility] Comment on above: Result Comment: Incr [...] hospitalization. Performed By: #### C BC #### [facility] [address] [place] [address] Dr. David Magana POINT OF CARE GLUCOSEon Glucose [Mass/Vol] 329 mg/dL Critically high 74-106 [facility] Comment on above: Performed By: #### P OCGLUC #### [facility] [address] [place] [address] Dr. David Magana Glucose [Mass/Vol] 354 mg/dL Critically high 74-106 [facility] Comment on above: Performed By: #### P OCGLUC #### [facility] [address] [place] [address] Dr. David Magana PROF 14(COMP METB)on 022 Albumin [Mass/Vol] 3.6 g/dL Normal 3.4-5.0 [facility] Comment on above: Performed By: #### C VDTBH #### [facility] [address] [place] [address] Dr. David Magana Albumin/Globulin [Mass ratio] 1.1 {ratio} Normal [facility] Comment on above: Performed By: #### C VDTBH #### [facility] [address] [address] [address] David Magana ALP [Catalytic activity/Vol] 67 U/L Normal 46-116 [facility] Comment on above: Performed By: #### C VDTBH #### [facility] [address] [place] [address] Dr. David Magana ALT [Catalytic activity/Vol] 33 U/L Normal 16-63 [facility] Comment on above: Performed By: #### C VDTBH #### [facility] [address] [place] [address] Dr. David Magana Anion gap [Moles/Vol] 23.5 mmol/L Normal [facility] Comment on above: Performed By: #### C VDTBH #### [facility] [address] [place] [address] Dr. David Magana AST [Catalytic activity/Vol] 13 U/L Critically low 15-37 [facility] Comment on above: Performed By: #### C VDTBH #### [facility] [address] [place] [address] Dr. David Magana Bilirubin [Mass/Vol] 0.6 mg/dL Normal 0.2-1.0 [facility] Comment on above: Performed By: #### C VDTBH #### [facility] [address] [place] [address] Dr. David Magana Calcium [Mass/Vol] 8.4 mg/dL Critically low 8.5-10.1 [facility] Comment on above: Performed By: #### C VDTBH #### [facility] [address] [place] [address] Dr. David Magana Chloride [Moles/Vol] 93 mmol/L Critically low 98-107 [facility] Comment on above: Performed By: #### C VDTBH #### [facility] [address] [place] [address] Dr. David Magana CO2 [Moles/Vol] 17.9 mmol/L Critically low 21.0-32.0 [facility] Comment on above: Performed By: #### C VDTBH #### [facility] [address] [place] [address] Dr. David Magana Creatinine [Mass/Vol] 2.15 mg/dL Critically high 0.70-1.30 [facility] Comment on above: Performed By: #### C VDTBH #### [facility] [address] [place] [address] Dr. David Magana EGFR-AF KOSOVAN 36 mL/min/1.73m2 Critically low >=60 [facility] Comment on above: Performed By: #### C VDTBH #### [facility] [address] [place] [address] Dr. David Magana EGFR-NON AF KOSOVAN 30 mL/min/1.73m2 Critically low >=60 [facility] Comment on above: Performed By: #### C VDTBH #### [facility] [address] [place] [address] Dr. David Magana Globulin (S) [Mass/Vol] 3.2 g/dL Normal [facility] Comment on above: Performed By: #### C VDTBH #### [facility] [address] [place] [address] Dr. David Magana Glucose [Mass/Vol] 345 mg/dL Critically high 74-106 [facility] Comment on above: Performed By: #### C VDTBH #### [facility] [address] [place] [address] Dr. David Magana Potassium [Moles/Vol] 5.4 mmol/L Critically high 3.5-5.1 [facility] Comment on above: Performed By: #### C VDTBH #### [facility] [address] [place] [address] Dr. David Magana Performed By: #### K #### [facility] [address] [place] [address] Dr. David Magana Protein [Mass/Vol] 6.8 g/dL Normal 6.4-8.2 [facility] Comment on above: Performed By: #### C VDTBH #### [facility] [address] [place] [address] Dr. David Magana Sodium [Moles/Vol] 129 mmol/L Critically low 136-145 [facility] Comment on above: Performed By: #### C VDTBH #### [facility] [address] [place] [address] Dr. David Magana Urea nitrogen [Mass/Vol] 65.0 mg/dL Critically high 7.0-18.0 [facility] Comment on above: Performed By: #### C VDTBH #### [facility] [address] [place] [address] Dr. David Magana Urea nitrogen/Creatinine [Mass ratio] 30.2 mg/mg Normal [facility] Comment on above: Performed By: #### C VDTBH #### [facility] [address] [place] [address] Dr. David Magana UA RANDOM W/MICROSCOPICon BACTERIA NONE SEEN Normal NONE SEEN [facility] Comment on above: Performed By: #### M G, BMP, PHOS #### [facility] [address] [place] [address] Dr. David Magana Bilirubin Ql (U) Negative Normal NEGATIVE [facility] Comment on above: Performed By: #### M G, BMP, PHOS #### [facility] [address] [place] [address] Dr. David Magana CAST NONE SEEN Normal NONE SEEN [facility] Comment on above: Performed By: #### M G, BMP, PHOS #### [facility] [address] [place] [address] Dr. David Magana Clarity (U) CLEAR Normal CLEAR [facility] Comment on above: Performed By: #### M G, BMP, PHOS #### [facility] [address] [address] [address] David Magana Color (U) LT. YELLOW Normal YELLOW [facility] Comment on above: Performed By: #### M G, BMP, PHOS #### [facility] [address] [address] [address] David Magana Crystals LM Nom (Urine sed) NONE SEEN Normal NONE SEEN [facility] Comment on above: Performed By: #### M G, BMP, PHOS #### [facility] [address] [address] [address] David Magana Epithelial cells LM Ql (Urine sed) RARE Normal NONE SEEN /RARE [facility] Comment on above: Performed By: #### M Marcell, BMP, PHOS #### [facility] [address] [place] [address] Dr. David Magana Glucose Ql (U) 1000 mg/dl Abnormal NEGATIVE [facility] Comment on above: Performed By: #### M Marcell, BMP, PHOS #### [facility] [address] [address] [address] David Magana Hemoglobin Ql (U) Negative Normal NEGATIVE [facility] Comment on above: Performed By: #### M G, BMP, PHOS #### [facility] [address] [place] [address] Dr. David Magana Ketones Ql (U) 15 mg/dl Abnormal NEGATIVE [facility] Comment on above: Performed By: #### M Marcell, BMP, PHOS #### [facility] [address] [place] [address] Dr. David Magana LEUKOCYTES Negative Normal NEGATIVE [facility] Comment on above: Performed By: #### M G, BMP, PHOS #### [facility] [address] [place] [address] Dr. David Magana MUCOUS NONE SEEN Normal NONE SEEN [facility] Comment on above: Performed By: #### M G, BMP, PHOS #### [facility] [address] [address] [address] David Magana Nitrite Ql (U) Negative Normal NEGATIVE [facility] Comment on above: Performed By: #### M G, BMP, PHOS #### [facility] [address] [place] [address] Dr. David Magana pH (U) 5.5 [pH] Normal 5-9 [facility] Comment on above: Performed By: #### M G, BMP, PHOS #### [facility] [address] [place] [address] Dr. David Magana RBC NONE SEEN Abnormal 0-2 [facility] Comment on above: Performed By: #### M G, BMP, PHOS #### [facility] [address] [place] [address] Dr. David Magana SPEC GRAVITY <=1.005 Abnormal 1.005-<=1.02 5 [facility] Comment on above: Performed By: #### M G, BMP, PHOS #### [facility] [address] [place] [address] Dr. David Magana UA PROTEIN Negative Normal NEGATIVE/ TRACE [facility] Comment on above: Performed By: #### M G, BMP, PHOS #### [facility] [address] [place] [address] Dr. David Magana Urobilinogen Qn (U) 0.2 {Dionna'U}/dL Normal 0.2 - 1. 0 [facility] Comment on above: Performed By: #### M G, BMP, PHOS #### [facility] [address] [place] [address] Dr. David Magana WBC NONE SEEN Normal NONE SEEN [facility] Comment on above: Performed By: #### M G, BMP, PHOS #### [facility] [address] [place] [address] Dr. David Magana XR CHEST 1 Von [...] Yefri DWYER Date: 2022-07-18 00:09 Normal [facility] CARDIAC BARRIE ADMITon 022 CK [Catalytic activity/Vol] 61 U/L Normal 39-308 [facility] Comment on above: Performed By: #### C BC #### [facility] [address] [address] [address] David Magana CK.MB [Mass/Vol] 1.84 ng/mL Normal <=3.60 [facility] Comment on above: Performed By: #### C BC #### [facility] [address] [place] [address] Dr. David Magana HSTROP 9.4 pg/mL Normal 4.0-76.1 [facility] Comment on above: Result Comment: CUT- OFF POINTS HAVE BEEN ESTABLISHED BASED ON THE FOURTH UNIVERSAL DEFINITIONS OF MYOCARDIAL INFARCTION. THE UPPER REFERENCE LIMIT (URL) OF TROPONIN, DEFINED THE 99TH PERCENTILE OF cTnI DISTRIBUTION IN A REFERENCE POPULATION, HAS BEEN CONFIRMED THE DECISION THRESHOLD FOR [place] DIAGNOSIS. Performed By: #### C BC #### [facility] [address] [address] [address] David Magana DUSTIN 533 ng/mL Critically high 16-96 [facility] Comment on above: Performed By: #### C BC #### [facility] [address] [address] [address] David Magana CBC AUTO DIFFon 07-17-2022 BASO # 0.0 103/ul Normal 0.0-0.1 [facility] Comment on above: Performed By: #### M G, BMP, PHOS #### [facility] [address] [address] [address] David Magana Basophils/100 WBC (Bld) 0.2 % Normal 0.2-2.0 [facility] Comment on above: Performed By: #### M G, BMP, PHOS #### [facility] [address] [address] [address] David Magana EO # 0.0 103/ul Normal 0.0-0.7 [facility] Comment on above: Performed By: #### M ERICK Faith, PHOS #### [facility] [address] [place] [address] Dr. David Magana Eosinophils/100 WBC (Bld) 0.1 % Critically low 0.9-7.0 [facility] Comment on above: Performed By: #### ERICK Jacques, PHOS #### [facility] [address] [place] [address] Dr. David Magana Erythrocyte distribution width (RBC) [Ratio] 13.2 % Normal 11.0-15.0 [facility] Comment on above: Performed By: #### ERICK Jacques, PHOS #### [facility] [address] [place] [address] Dr. David Magana Hematocrit (Bld) [Volume fraction] 43.1 % Normal 42.0-54.0 [facility] Comment on above: Performed By: #### ERICK Jacques, PHOS #### [facility] [address] [place] [address] Dr. David Magana Hemoglobin (Bld) [Mass/Vol] 14.5 g/dL Normal 14.0-18.0 [facility] Comment on above: Performed By: #### ERICK Jacques, PHOS #### [facility] [address] [place] [address] Dr. Daivd Magana IG # 0.14 10e3/ul Critically high 0.00-0.03 [facility] Comment on above: Performed By: #### ERICK Jacques, PHOS #### [facility] [address] [place] [address] Dr. David Magana IG % 1.2 % Critically high 0.0-0.5 [facility] Comment on above: Performed By: #### M ERICK Faith, PHOS #### [facility] [address] [place] [address] Dr. David Magana LYMPH # 0.4 103/ul Critically low 1.2-3.8 [facility] Comment on above: Performed By: #### M ERICK Faith, PHOS #### [facility] [address] [place] [address] Dr. David Magana Lymphocytes/100 WBC (Bld) 3.4 % Critically low 20.5-60.0 [facility] Comment on above: Performed By: #### M G, BMP, PHOS #### [facility] [address] [place] [address] Dr. David Magana MANUAL DIFF REQ NO Normal [facility] Comment on above: Performed By: #### M G, BMP, PHOS #### [facility] [address] [place] [address] Dr. David Magana MCH (RBC) [Entitic mass] 33.3 pg Normal 25.9-34.0 [facility] Comment on above: Performed By: #### M G, BMP, PHOS #### [facility] [address] [place] [address] Dr. David Magana MCHC (RBC) [Mass/Vol] 33.6 g/dL Normal 29.9-35.2 [facility] Comment on above: Performed By: #### M G, BMP, PHOS #### [facility] [address] [place] [address] Dr. David Magana MCV (RBC) [Entitic vol] 98.9 fL Critically high 80.0-94.0 [facility] Comment on above: Performed By: #### M G, BMP, PHOS #### [facility] [address] [place] [address] Dr. David Magana MONO # 1.1 103/ul Critically high 0.3-0.8 [facility] Comment on above: Performed By: #### M G, BMP, PHOS #### [facility] [address] [place] [address] Dr. David Magana Monocytes/100 WBC (Bld) 8.9 % Normal 1.7-12.0 [facility] Comment on above: Performed By: #### M G, BMP, PHOS #### [facility] [address] [place] [address] Dr. David Magana NEUT # 10.3 103/ul Critically high 1.4-6.5 [facility] Comment on above: Performed By: #### M ERICK Faith, PHOS #### [facility] [address] [place] [address] Dr. David Magana Neutrophils/100 WBC (Bld) 86.2 % Critically high 43.0-75.0 [facility] Comment on above: Performed By: #### ERICK Jacques, PHOS #### [facility] [address] [place] [address] Dr. David Magana Platelet mean volume (Bld) [Entitic vol] 11.1 fL Normal 9.5-13.5 [facility] Comment on above: Performed By: #### ERICK Jacques, PHOS #### [facility] [address] [place] [address] Dr. David Magana PLT 229 103/ul Normal 150-450 [facility] Comment on above: Performed By: #### ERICK Jacques, PHOS #### [facility] [address] [place] [address] Dr. David Magana RBC 4.36 106/ul Critically low 4.70-6.10 [facility] Comment on above: Performed By: #### ERICK Jacques, PHOS #### [facility] [address] [place] [address] Dr. David Magana WBC 11.9 103/ul Critically high 4.0-11.0 [facility] Comment on above: Performed By: #### ERICK Jacques, PHOS #### [facility] [address] [place] [address] Dr. David Magana PROF CHEM 8 (BAS METB)on Anion gap [Moles/Vol] 26.5 mmol/L Normal [facility] Comment on above: Performed By: #### C BC #### [facility] [address] [place] [address] Dr. David Magana Calcium [Mass/Vol] 8.2 mg/dL Critically low 8.5-10.1 [facility] Comment on above: Performed By: #### C BC #### [facility] [address] [address] [address] David Magana Chloride [Moles/Vol] 89 mmol/L Critically low 98-107 [facility] Comment on above: Performed By: #### C BC #### [facility] [address] [address] [address] David Magana CO2 [Moles/Vol] 14.5 mmol/L Critically low 21.0-32.0 [facility] Comment on above: Performed By: #### C BC #### [facility] [address] [address] [address] David Magana Creatinine [Mass/Vol] 2.78 mg/dL Critically high 0.70-1.30 [facility] Comment on above: Performed By: #### C BC #### [facility] [address] [address] [address] David Magana EGFR-AF KOSOVAN 27 mL/min/1.73m2 Critically low >=60 [facility] Comment on above: Performed By: #### C BC #### [facility] [address] [address] [address] David Magana EGFR-NON AF KOSOVAN 22 mL/min/1.73m2 Critically low >=60 [facility] Comment on above: Performed By: #### C BC #### [facility] [address] [address] [address] David Magana Glucose [Mass/Vol] 442 mg/dL Critically high 74-106 T [facility] Comment on above: Performed By: #### C BC #### [facility] [address] [address] [address] David Magana Potassium [Moles/Vol] 6.0 mmol/L Critically high 3.5-5.1 [facility] Comment on above: Performed By: #### C BC #### [facility] [address] [address] [address] David Magana Sodium [Moles/Vol] 124 mmol/L Critically low 136-145 Th [facility] Comment on above: Performed By: #### C BC #### [facility] [address] [place], [place] [address] Dr. David Magana Urea nitrogen [Mass/Vol] 73.0 mg/dL Critically high 7.0-18.0 [facility] Comment on above: Performed By: #### C BC #### [facility] [address] [place], [place] [address] Dr. David Magana Urea nitrogen/Creatinine [Mass ratio] 26.3 mg/mg Normal [facility] Comment on above: Performed By: #### C BC #### [facility] [address] [place], [place] [address] Dr. David Magana Covid-19 PCR ([facility])on 06-16 SARS-CoV-2 (COVID-19) RNA SULTANA+probe Ql (Unsp spec) Detected Critically abnormal NOT DETECTED [facility] Comment on above: Result Comment: This test is not yet approved or cleared by the [place] FDA. When there are no FDA-approved or cleared tests available, and other criteria are met, FDA can make tests available under an emergency access mechanism called an Emergency Use Authorization (EUA). The EUA for this test is supported by the [place] of Health and Human Service's (HHS's) declaration [...] By: #### M G, BMP, PHOS #### [facility] [id number] David Magana ECHOCARDIO M/2D COMPLETEon 0 07-01-2022 ECHOCARDIO M/2D COMPLETE Patient: NADIR BETH Exam Date: 07/01/2022 : 1940 Gender:M Ordering : DR CLARIBEL CISNEROS M.D. Admission #: [id number] Family : DR VAN YOUSSEF . Order #: [id number] CLICK HERE TO VIEW EXAM ECHOCARDIOGRAM REPORT [...] M.D. on 07/01/2022 at 16:27 Normal [facility] Covid-19 PCR ([facility])on SARS-CoV-2 (COVID-19) RNA SULTANA+probe Ql (Unsp spec) Not detected Normal NOT DETECTED [facility] Comment on above: Result Comment: [...] for this test is supported by the [place] of Health and Human Service's declaration that [...] used). Performed By: #### C VDTB #### [facility] [address] [place] [address] Dr. David Magana CREATININE URINEon 2 URINE CREAT 14.70 mg/dL Critically low 20.00-300.00 [facility] Comment on above: Performed By: #### M ERICK Faith, PHOS #### [facility] [address] [place] [address] Dr. David Magana GLYCOHEMOGLOBIN A1Con 2021 ADA RECOMMENDATION SEE BELOW Normal [facility] Comment on above: Result Comment: ADA RECOMMENDED LIMIT 4.0 - 6.0 ADA THERAPEUTIC TARGET < 7.0 ACTION SUGGESTED > 7.0 Performed By: #### A 1C #### [facility] [address] [place] [address] Dr. David Magana Glucose [Mass/Vol] 209 mg/dL Normal [facility] Comment on above: Performed By: #### A 1C #### [facility] [address] [place] [address] Dr. David Magana HbA1c (Bld) [Mass fraction] 8.9 % Critically high 4.5-6.2 [facility] Comment on above: Performed By: #### A 1C #### [facility] [address] [place] [address] Dr. David Magana MAGNESIUMon 06-08-2022 Magnesium [Mass/Vol] 2.3 mg/dL Normal 1.8-2.4 [facility] Comment on above: Performed By: #### M ERICK Faith, PHOS #### [facility] [address] [place] [address] Dr. David Magana PHOSPHORUSon 06-08-2022 Phosphate [Mass/Vol] 3.5 mg/dL Normal 2.6-4.7 [facility] Comment on above: Performed By: #### ERICK Jacques, PHOS #### [facility] [address] [place] [address] Dr. David Magana PROF CHEM 8 (BAS METB)on Anion gap [Moles/Vol] 10.6 mmol/L Normal Th [facility] Comment on above: Performed By: #### M G, BMP, PHOS #### [facility] [address] [address] [address] David Magana Calcium [Mass/Vol] 9.2 mg/dL Normal 8.5-10.1 [facility] Comment on above: Performed By: #### M G, BMP, PHOS #### [facility] [address] [address] [address] David Magana Chloride [Moles/Vol] 102 mmol/L Normal 98-107 [facility] Comment on above: Performed By: #### M Marcell, BMP, PHOS #### [facility] [address] [address] [address] David Magana CO2 [Moles/Vol] 30.1 mmol/L Normal 21.0-32.0 [facility] Comment on above: Performed By: #### M Marcell, BMP, PHOS #### [facility] [address] [address] [address] David Magana Creatinine [Mass/Vol] 1.70 mg/dL Critically high 0.70-1.30 [facility] Comment on above: Performed By: #### M G, BMP, PHOS #### [facility] [address] [address] [address] David Magana EGFR-AF KOSOVAN 47 mL/min/1.73m2 Critically low >=60 [facility] Comment on above: Performed By: #### M G, BMP, PHOS #### [facility] [address] [address] [address] David Magana EGFR-NON AF KOSOVAN 39 mL/min/1.73m2 Critically low >=60 [facility] Comment on above: Performed By: #### M G, BMP, PHOS #### [facility] [address] [address] [address] David Magana Glucose [Mass/Vol] 197 mg/dL Critically high 74-106 [facility] Comment on above: Performed By: #### M ERICK Faith, PHOS #### [facility] [address] [place] [address] Dr. David Magana Potassium [Moles/Vol] 4.7 mmol/L Normal 3.5-5.1 [facility] Comment on above: Performed By: #### M Marcell BMP, PHOS #### [facility] [address] [place] [address] Dr. David Magana Sodium [Moles/Vol] 138 mmol/L Normal 136-145 [facility] Comment on above: Performed By: #### M ERICK Faith, PHOS #### [facility] [address] [place] [address] Dr. David Magana Urea nitrogen [Mass/Vol] 25.0 mg/dL Critically high 7.0-18.0 [facility] Comment on above: Performed By: #### ERICK Jacques, PHOS #### [facility] [address] [place] [address] Dr. David Magana Urea nitrogen/Creatinine [Mass ratio] 14.7 mg/mg Normal [facility] Comment on above: Performed By: #### M ERICK Faith, PHOS #### [facility] [address] [place] [address] Dr. David Magana PROTEIN RAND URINEon 022 UR PROT <5.0 Normal <=11.9 [facility] Comment on above: Performed By: #### C REAU, PROTU #### [facility] [address] [place] [address] Dr. David Magana BILIRUBIN CONJUGATED (DIRECT )on 04-28-2022 BILI, CONJUGATED 0.1 mg/dL Normal 0.0-0.2 [facility] Comment on above: Performed By: #### P OCGLUC #### [facility] [address] [place] [address] Dr. David Magana CBC AUTO DIFFon 04-28-2022 BASO # 0.1 103/ul Normal 0.0-0.1 [facility] Comment on above: Performed By: #### C VDTBH #### [facility] [address] [place] [address] Dr. David Magana Basophils/100 WBC (Bld) 0.7 % Normal 0.2-2.0 [facility] Comment on above: Performed By: #### C VDTBH #### [facility] [address] [place] [address] Dr. David Magana EO # 0.5 103/ul Normal 0.0-0.7 [facility] Comment on above: Performed By: #### C VDTBH #### [facility] [address] [place] [address] Dr. David Magana Eosinophils/100 WBC (Bld) 6.7 % Normal 0.9-7.0 [facility] Comment on above: Performed By: #### C VDTBH #### [facility] [address] [place] [address] Dr. David Magana Erythrocyte distribution width (RBC) [Ratio] 13.6 % Normal 11.0-15.0 [facility] Comment on above: Performed By: #### C VDTBH #### [facility] [address] [place] [address] Dr. David Magana Hematocrit (Bld) [Volume fraction] 45.9 % Normal 42.0-54.0 [facility] Comment on above: Performed By: #### C VDTBH #### [facility] [address] [place] [address] Dr. David Magana Hemoglobin (Bld) [Mass/Vol] 14.9 g/dL Normal 14.0-18.0 [facility] Comment on above: Performed By: #### C VDTBH #### [facility] [address] [place] [address] Dr. David Magana IG # 0.03 10e3/ul Normal 0.00-0.03 [facility] Comment on above: Performed By: #### C VDTBH #### [facility] [address] [place] [address] Dr. David Magana IG % 0.4 % Normal 0.0-0.5 [facility] Comment on above: Performed By: #### C VDTBH #### [facility] [address] [address] [address] David Magana LYMPH # 1.0 103/ul Critically low 1.2-3.8 [facility] Comment on above: Performed By: #### C VDTBH #### [facility] [address] [address] [address] David Magana Lymphocytes/100 WBC (Bld) 13.4 % Critically low 20.5-60.0 [facility] Comment on above: Performed By: #### C VDTBH #### [facility] [address] [address] [address] David Magana MANUAL DIFF REQ NO Normal [facility] Comment on above: Performed By: #### C VDTBH #### [facility] [address] [address] [address] David Magana MCH (RBC) [Entitic mass] 33.8 pg Normal 25.9-34.0 [facility] Comment on above: Performed By: #### C VDTBH #### [facility] [address] [address] [address] David Magana MCHC (RBC) [Mass/Vol] 32.5 g/dL Normal 29.9-35.2 [facility] Comment on above: Performed By: #### C VDTBH #### [facility] [address] [address] [address] David Magana MCV (RBC) [Entitic vol] 104.1 fL Critically high 80.0-94.0 [facility] Comment on above: Performed By: #### C VDTBH #### [facility] [address] [address] [address] David Magana MONO # 0.8 103/ul Normal 0.3-0.8 [facility] Comment on above: Performed By: #### C VDTBH #### [facility] [address] [address] [address] David Magana Monocytes/100 WBC (Bld) 10.2 % Normal 1.7-12.0 [facility] Comment on above: Performed By: #### C VDTBH #### [facility] [address] [address] [address] David Magana NEUT # 5.1 103/ul Normal 1.4-6.5 [facility] Comment on above: Performed By: #### C VDTBH #### [facility] [address] [address] [address] David Magana Neutrophils/100 WBC (Bld) 68.6 % Normal 43.0-75.0 [facility] Comment on above: Performed By: #### C VDTBH #### [facility] [address] [place] [address] Dr. David Magana Platelet mean volume (Bld) [Entitic vol] 11.3 fL Normal 9.5-13.5 [facility] Comment on above: Performed By: #### C VDTBH #### [facility] [address] [place] [address] Dr. David Magana PLT 185 103/ul Normal 150-450 [facility] Comment on above: Performed By: #### C VDTBH #### [facility] [address] [place] [address] Dr. David Magana RBC 4.41 106/ul Critically low 4.70-6.10 [facility] Comment on above: Performed By: #### C VDTBH #### [facility] [address] [place] [address] Dr. David Magana WBC 7.5 103/ul Normal 4.0-11.0 [facility] Comment on above: Performed By: #### C VDTBH #### [facility] [address] [address] [address] David Magana FREE T3on 04-28-2022 FREE T3 2.17 pg/mlL Critically low 2.18-3.98 [facility] Comment on above: Performed By: #### P OCGLUC #### [facility] [address] [place] [address] Dr. David Magana LIPID PROFILEon 04-28-2022 CHOL-HDL RATIO NORM SEE BELOW Normal [facility] Comment on above: Result Comment: 3.3 - 4.4 LOW RISK 4.4 - 7.1 AVERAGE RISK 7.1 - 11.0 MODERATE RISK >11.0 HIGH RISK Performed By: #### P OCGLUC #### [facility] [address] [address] [address] David Magana Cholesterol [Mass/Vol] 234 mg/dL Critically high <=200 [facility] Comment on above: Performed By: #### P OCGLUC #### [facility] [address] [address] [address] David Magana Cholesterol in HDL [Mass/Vol] 58 mg/dL Normal 40-60 [facility] Comment on above: Performed By: #### P OCGLUC #### [facility] [address] [address] [address] David Magana Cholesterol in LDL [Mass/Vol] 129.0 mg/dL Normal [facility] Comment on above: Performed By: #### P OCGLUC #### [facility] [address] [address] [address] David Magana Cholesterol.total/Cho lesterol in HDL [Mass ratio] 4.0 {ratio} Normal [facility] Comment on above: Performed By: #### P OCGLUC #### [facility] [address] [address] [address] David Magana HDL NORMAL > or = 60 mg/dl - LO W CARDIOVASCULAR RISK <40 mg/dl - HIGH CARDIOVASCULAR RISK Normal [facility] Comment on above: Performed By: #### P OCGLUC #### [facility] [address] [address] [address] David Magana LDL CALC NORMAL SEE BELOW Normal [facility] Comment on above: Result Comment: <100 mg/dl OPTIMAL 100 - 129 mg/dl NEAR OR ABOVE OPTIMAL 130 - 159 mg/dl BORDERLINE HIGH 160 - 189 mg/dl HIGH >190 mg/dl VERY HIGH Performed By: #### P OCGLUC #### [facility] [address] [address] [address] David Magana Triglyceride [Mass/Vol] 235 mg/dL Critically high <=150 [facility] Comment on above: Performed By: #### P OCGLUC #### [facility] [address] [address] [address] David Magana VLDL CALC 47.0 mg/dL Normal [facility] Comment on above: Performed By: #### P OCGLUC #### [facility] [address] [place] [address] Dr. David Magana PROF 14(COMP METB)on 022 Albumin [Mass/Vol] 3.2 g/dL Critically low 3.4-5.0 [facility] Comment on above: Performed By: #### P OCGLUC #### [facility] [address] [place] [address] Dr. David Magana Albumin/Globulin [Mass ratio] 0.9 {ratio} Normal [facility] Comment on above: Performed By: #### P OCGLUC #### [facility] [address] [place] [address] Dr. David Magana ALP [Catalytic activity/Vol] 77 U/L Normal 46-116 [facility] Comment on above: Performed By: #### P OCGLUC #### [facility] [address] [place] [address] Dr. David Magana ALT [Catalytic activity/Vol] 24 U/L Normal 16-63 [facility] Comment on above: Performed By: #### P OCGLUC #### [facility] [address] [place] [address] Dr. David Magana Anion gap [Moles/Vol] 13.1 mmol/L Normal [facility] Comment on above: Performed By: #### P OCGLUC #### [facility] [address] [address] [address] David Magana AST [Catalytic activity/Vol] 13 U/L Critically low 15-37 [facility] Comment on above: Performed By: #### P OCGLUC #### [facility] [address] [place] [address] Dr. David Magana Bilirubin [Mass/Vol] 0.3 mg/dL Normal 0.2-1.0 [facility] Comment on above: Performed By: #### P OCGLUC #### [facility] [address] [address] [address] David Magana Calcium [Mass/Vol] 8.8 mg/dL Normal 8.5-10.1 [facility] Comment on above: Performed By: #### P OCGLUC #### [facility] [address] [address] [address] David Magana Chloride [Moles/Vol] 106 mmol/L Normal 98-107 [facility] Comment on above: Performed By: #### P OCGLUC #### [facility] [address] [address] [address] David Magana CO2 [Moles/Vol] 27.5 mmol/L Normal 21.0-32.0 [facility] Comment on above: Performed By: #### P OCGLUC #### [facility] [address] [address] [address] David Magana Creatinine [Mass/Vol] 1.62 mg/dL Critically high 0.70-1.30 [facility] Comment on above: Performed By: #### P OCGLUC #### [facility] [address] [address] [address] David Magana EGFR-AF KOSOVAN 50 mL/min/1.73m2 Critically low >=60 [facility] Comment on above: Performed By: #### P OCGLUC #### [facility] [address] [address] [address] David Magana EGFR-NON AF KOSOVAN 41 mL/min/1.73m2 Critically low >=60 [facility] Comment on above: Performed By: #### P OCGLUC #### [facility] [address] [address] [address] David Magana Globulin (S) [Mass/Vol] 3.4 g/dL Normal [facility] Comment on above: Performed By: #### P OCGLUC #### [facility] [address] [address] [address] David Magana Glucose [Mass/Vol] 206 mg/dL Critically high 74-106 [facility] Comment on above: Performed By: #### P OCGLUC #### [facility] [address] [address] [address] David Magana Potassium [Moles/Vol] 4.6 mmol/L Normal 3.5-5.1 [facility] Comment on above: Performed By: #### P OCGLUC #### [facility] [address] [address] [address] David Magana Protein [Mass/Vol] 6.6 g/dL Normal 6.4-8.2 [facility] Comment on above: Performed By: #### P OCGLUC #### [facility] [address] [address] [address] David Magana Sodium [Moles/Vol] 142 mmol/L Normal 136-145 [facility] Comment on above: Performed By: #### P OCGLUC #### [facility] [address] [address] [address] David Magana Urea nitrogen [Mass/Vol] 26.0 mg/dL Critically high 7.0-18.0 [facility] Comment on above: Performed By: #### P OCGLUC #### [facility] [address] [address] [address] David Magana Urea nitrogen/Creatinine [Mass ratio] 16.0 mg/mg Normal [facility] Comment on above: Performed By: #### P OCGLUC #### [facility] [address] [address] [address] David Magana T4on 04-28-2022 T4 [Mass/Vol] 7.70 ug/dL Normal 4.50-12.10 [facility] Comment on above: Performed By: #### P OCGLUC #### [facility] [address] [place] [address] Dr. David Magana TSHon 04-28-2022 TSH 2.187 uIU/mL Normal 0.358-3.740 [facility] Comment on above: Performed By: #### P OCGLUC #### [facility] [address] [place] [address] Dr. David Magana TSH RANGE SEE BELOW Normal [facility] Comment on above: Result Comment: <0.3 4 UIU/ml HYPERTHYROID 0.34-5.60 UIU/ml EUTHYROID >5.60 UIU/ml HYPOTHYROID Performed By: #### P OCGLUC #### [facility] [address] [address] [address] David Magana Vital Signs Date Time Vital Sign Value Performing Clinician Facility 09-14-2024 08:19-0400 Body height 182.9 cm Blaise Chicas DPM Work Phone: [facility] 09-14-2024 08:19-0400 Body mass index (BMI) [Ratio] 39.2 kg/m2 Blaise Chicas DPM Work Phone: [facility] 09-14-2024 08:19-0400 Body weight 131.09 kg Blaise Chicas DPM Work Phone: [facility] 09-14-2024 08:19-0400 Diastolic blood pressure 79 mm[Hg] Blaise Chicas DPM Work Phone: [facility] 09-14-2024 08:19-0400 Heart rate 81 /min Blaise Chicas DPM Work Phone: [facility] 09-14-2024 08:19-0400 Systolic blood pressure 128 mm[Hg] Blaise Chicas DPM Work Phone: [facility] 08-08-2024 10:25-0400 Blood Pressure Location MARQUIS NKANSAH-AMANKRA [facility] 08-08-2024 10:25-0400 Diastolic blood pressure 82 mm[Hg] MARQUIS NKANSAH-AMANKRA [facility] 08-08-2024 10:25-0400 Systolic blood pressure 140 mm[Hg] MARQUIS NKANSAH-AMANKRA [facility] 10-14-2023 14:33-0500 Diastolic blood pressure 70 mm[Hg] Nereyda Patricia [facility] 10-14-2023 14:33-0500 Mean blood pressure 93 mm[Hg] Nereyda Patricia [facility] 10-14-2023 14:33-0500 Systolic blood pressure 138 mm[Hg] Nereyda Patricia [facility] 10-14-2023 14:18-0500 Blood Pressure Location Nereyda Patricia [facility] 10-14-2023 14:18-0500 Body temperature 97.88 [degF] Nereyda Patricia [facility] 10-14-2023 14:18-0500 Diastolic blood pressure 73 mm[Hg] Nereyda Patricia [facility] 10-14-2023 14:18-0500 Heart rate 91 /min Nereyda Patricia [facility] 10-14-2023 14:18-0500 Systolic blood pressure 143 mm[Hg] Nereyda Patricia [facility] 10-01-2023 12:13-0500 Diastolic blood pressure 66 mm[Hg] Nereyda Patricia [facility] 10-01-2023 12:13-0500 Mean blood pressure 104 mm[Hg] Nereyda Patricia [facility] 10-01-2023 12:13-0500 Systolic blood pressure 179 mm[Hg] Nereyda Patricia [facility] 10-01-2023 12:10-0500 Blood Pressure Location Nereyda Patricia [facility] 10-01-2023 12:10-0500 Body temperature 98.42 [degF] Nereyda Patricia [facility] 10-01-2023 12:10-0500 Diastolic blood pressure 77 mm[Hg] Nereyda Patricia [facility] 10-01-2023 12:10-0500 Heart rate 81 /min Nereyda Patricia [facility] 10-01-2023 12:10-0500 Respiratory rate 14 /min Nereyda Patricia [facility] 10-01-2023 12:10-0500 Systolic blood pressure 168 mm[Hg] Nereyda Patricia [facility] 06-10-2023 10:43-0400 Diastolic blood pressure 64 mm[Hg] Nereyda Patricia [facility] 06-10-2023 10:43-0400 Heart rate 76 /min Nereyda Patricia [facility] 06-10-2023 10:43-0400 Respiratory rate 16 /min Nereyda Patricia [facility] 06-10-2023 10:43-0400 SaO2% (BldA) [Mass fraction] 95 % Nereyda Patricia [facility] 06-10-2023 10:43-0400 Systolic blood pressure 121 mm[Hg] Nereyda Patricia [facility] 04-13-2023 14:19-0400 Diastolic blood pressure 70 mm[Hg] Nereyda Patricia [facility] 04-13-2023 14:19-0400 Mean blood pressure 95 mm[Hg] Nereyda Patricia [facility] 04-13-2023 14:19-0400 Systolic blood pressure 146 mm[Hg] Nereyda Patricia [facility] 04-13-2023 14:15-0400 Blood Pressure Location Nereyda Patricia [facility] 04-13-2023 14:15-0400 Body temperature 97.7 [degF] Nereyda Patricia [facility] 04-13-2023 14:15-0400 Diastolic blood pressure 87 mm[Hg] Nereyda Patricia [facility] 04-13-2023 14:15-0400 Heart rate 70 /min Nereyda Patricia [facility] 04-13-2023 14:15-0400 Systolic blood pressure 150 mm[Hg] Nereyda Patricia [facility] 06-09-2022 10:02-0400 Body temperature 96.98 [degF] Nereyda Patricia [facility] 06-09-2022 10:02-0400 Diastolic blood pressure 75 mm[Hg] Nereyda Patricia [facility] 06-09-2022 10:02-0400 Heart rate 72 /min Nereyda Patricia [facility] 06-09-2022 10:02-0400 SaO2% (BldA) [Mass fraction] 97 % Nereyda Patricia [facility] 06-09-2022 10:02-0400 Systolic blood pressure 139 mm[Hg] Nereyda Gomez [facility] 05-11-2022 11:30-0400 Diastolic blood pressure 102 mm[Hg] Bender SALAM [facility] 05-11-2022 11:30-0400 Heart rate 86 /min Bender SALAM [facility] 05-11-2022 11:30-0400 Respiratory rate 15 /min Bender SALAM [facility] 05-11-2022 11:30-0400 SaO2% (BldA) [Mass fraction] 95 % Bender SALAM [facility] 05-11-2022 11:30-0400 Systolic blood pressure 172 mm[Hg] Bender SALAM [facility] 05-11-2022 11:15-0400 Diastolic blood pressure 88 mm[Hg] Bender SALAM [facility] 05-11-2022 11:15-0400 Heart rate 86 /min Bender SALAM [facility] 05-11-2022 11:15-0400 Respiratory rate 18 /min Bender SALAM [facility] 05-11-2022 11:15-0400 SaO2% (BldA) [Mass fraction] 97 % Bender SALAM [facility] 05-11-2022 11:15-0400 Systolic blood pressure 170 mm[Hg] Bender SALAM [facility] 05-11-2022 11:10-0400 Diastolic blood pressure 108 mm[Hg] Bender SALAM [facility] 05-11-2022 11:10-0400 Heart rate 85 /min Bender SALAM [facility] 05-11-2022 11:10-0400 Respiratory rate 14 /min Bender SALAM [facility] 05-11-2022 11:10-0400 SaO2% (BldA) [Mass fraction] 97 % Bender SALAM [facility] 05-11-2022 11:10-0400 Systolic blood pressure 157 mm[Hg] Bender SALAM [facility] 05-11-2022 11:02-0400 Body temperature 97.34 [degF] Bender SALAM [facility] 05-11-2022 10:27-0400 Blood Pressure Location Bender SALAM [facility] 05-11-2022 10:23-0400 Blood Pressure Location Bender SALAM [facility] 05-11-2022 10:23-0400 Body temperature 98.24 [degF] Bender SALAM [facility] 03-31-2022 09:53-0400 Blood Pressure Location Nereyda Patricia [facility] 03-31-2022 09:53-0400 Body temperature 97.7 [degF] Nereyda Gomez [facility] 03-31-2022 09:53-0400 Diastolic blood pressure 72 mm[Hg] Nereyda Gomez [facility] 03-31-2022 09:53-0400 Heart rate 73 /min Nereyda Gomez [facility] 03-31-2022 09:53-0400 SaO2% (BldA) [Mass fraction] 96 % Nereyda Gomez [facility] 03-31-2022 09:53-0400 Systolic blood pressure 129 mm[Hg] Nereyda Gomez [facility] Encounters Encounter Date Encounter Type Care Provider Facility Start: 12-04-2024 ambulatory MD MARQUIS LOUISE Facility: [place] Start: 10-25-2024 End: 10-25-2024 ambulatory MD MARQUIS LOUISE Facility:[facility] Start: 10-23-2024 End: 10-23-2024 ambulatory MD MARQUIS LOUISE Facility:[facility] Start: 10-23-2024 End: 10-23-2024 Patient encounter procedure MARQUIS LOUISE [facility] Start: 10-02-2024 End: 10-02-2024 [facility] Start: 09-25-2024 End: 09-25-2024 ambulatory MD MARQUIS LOUISE Facility:[facility] Start: 09-25-2024 End: 09-25-2024 Patient encounter procedure MARQUIS LOUISE [facility] Start: 09-14-2024 End: 09-14-2024 Deangelo Chicas [...] underlying condition with diabetic polyneuropathy, unspecified whether [place] [facility] [place] use ([facility]); Pain due to onychomycosis of [...] Available Start: 08-22-2024 ambulatory Nereyda Gomez Facility :[facility] Start: 08-17-2024 ambulatory MD MARQUIS LOUISE Facility: [facility] Start: 08-14-2024 End: 08-17-2024 Telephone encounter Barrie Montoya MD Work Phone: [facility] Start: 08-08-2024 End: 08-08-2024 ambulatory MD MARQUIS LOUISE Facility:[facility] Start: 08-08-2024 End: 08-08-2024 Patient encounter procedure MARQUIS LOUISE [facility] Alex Start: 08-03-2024 End: 08-03-2024 ambulatory BLAISE [...] Available Start: 07-05-2024 End: 07-05-2024 ambulatory JEFF [facility] Start: 06-07-2024 End: 06-07-2024 ambulatory RUTHIE [facility] Start: 06-05-2024 End: 06-05-2024 ambulatory [facility] Start: 06-01-2024 End: 06-01-2024 ambulatory BLAISE A BROWN Not Available Start: 04-20-2024 End: 04-20-2024 ambulatory BLAISE A BROWN Not Available Start: 03-03-2024 End: 03-03-2024 ambulatory [facility] Start: 02-10-2024 End: 02-10-2024 ambulatory BLAISE A BROWN Not Available Start: 02-02-2024 ambulatory Nereyda A Patricia Facili ty:[facility] Start: 01-11-2024 End: 01-11-2024 ambulatory BARRIE Gil BEBubba Not Available Start: 12-09-2023 ambulatory Nereyda A Patricia Facili ty:[facility] Start: 12-02-2023 End: 12-02-2023 ambulatory BLAISE A BROWN Not Available Start: 11-17-2023 End: 11-17-2023 ambulatory DANA [facility] Start: 10-14-2023 End: 10-14-2023 Patient encounter procedure Nereyda Gomez [facility] Start: 10-01-2023 End: 10-01-2023 Patient encounter procedure Nereyda Gomez [facility] Start: 10-01-2023 End: 10-01-2023 Patient encounter procedure Nereyda Donatoz [facility] Start: 09-17-2023 End: 09-17-2023 ambulatory [facility] Start: 09-13-2023 End: 09-13-2023 Patient encounter procedure Nereyda Gomez [facility] Start: 08-31-2023 End: 08-31-2023 ambulatory [facility] Start: 07-21-2023 End: 07-21-2023 ambulatory [facility] Start: 06-10-2023 End: 06-10-2023 Patient encounter procedure Nereyda Gomez [facility] Start: 04-15-2023 End: 04-15-2023 Lab Drop off Nereyda A Patricia [facility] Start: 04-13-2023 End: 04-13-2023 Patient encounter procedure Nereydabruce Joyametz [facility] Start: 03-24-2023 End: [...] 06-09-2022 Patient encounter procedure Nereyda Gomez [facility] Start: 06-08-2022 End: 06-09-2022 ambulatory GAMALIEL DALEY Facility:[facility] Start: 05-11-2022 End: 05-11-2022 Patient encounter procedure Napoleon NOVA [facility] Start: 04-28-2022 End: 04-29-[address] VAN YOUSSEF . Facility:[facility] Start: 03-31-2022 End: 03-31-2022 Patient encounter procedure Nereyda Gomez [facility] Start: 2019 End: 02-07-2019 Patient encounter procedure DEFAULT PHYSICIAN Facility:[facility] Procedures Date Procedure Procedure Detail Performing [...] DERM [address] [place] [address] Rodney Joy MD [address] [place] [address] [facility] Start: 11-30-2024 End: 11-30-2024 Patient encounter procedure 11/30/2024 8:40 AM EST Office Visit [facility] [address] [facility] [address] [place] [address] Blaise Chicas DPM [address] [facility] [address] [place] [address] [facility] Start: 10-10-2024 End: 10-10-2024 Patient encounter procedure 10/10/2024 10:45 AM EST Office Visit [facility] [address] [place] [address] Barrie Montoya MD [address] [facility] [address] [place], [place] [id number] [facility] Start: 09-14-2024 End: 09-14-2024 Patient encounter procedure [facility] Comment on above: Verruca plantaris (P rimary Dx); Foot pain, right; Diabetes mellitus due to underlying condition with diabetic polyneuropathy, unspecified whether [place] [facility] use ([facility]); Pain due to onychomycosis of toenails of both feet Start: 08-24-2024 End: 08-24-2024 Patient encounter procedure [facility] Comment on above: Arrived Start: 08-03-2024 End: 08-03-2024 Patient encounter procedure 08/03/2024 8:50 AM EDT Office Visit [facility] [address] [facility] [address] [place] [address] Blaise Chicas DPM [address] [facility] 5 [place] [address] [facility] Start: 08-01-2024 End: 08-01-2024 Patient encounter procedure 08/01/2024 11:30 AM EDT Office Visit [facility] [address] [facility] [address] [place] [address] Barrie Montoya MD [address] [facility] [address] [place], [place] [id number] Arrived [facility] Comment on above: Arrived Start: 07-16-2024 Influenza vaccination Influenza Vacc ine (#1) [facility] Immunizations Immunization Date Immunization Notes Care Provider Fa [facility] 08-20-2023 influenza virus vaccine, unspecified formulation Barrie Montoya MD Work Phone: [facility] 10-21-2022 SARS-CoV-2 (COVID-19 ) [id number] Nereyda Gomez [facility] Comment on above: Result Comment: 2022: [id number] 08-26-2021 SARS-CoV-2 (COVID-19 ) mRNA BNT-162b2 vax Nereyda Gomez [facility] 01-01-2021 SARS-CoV-2 (COVID-19 ) mRNA BNT-162b2 vax Nereyda Joyametz [facility] 12-09-2020 SARS-CoV-2 (COVID-19 ) mRNA BNT-162b2 vax Nereyda Joyametz [facility] 08-27-2020 influenza virus vaccine, unspecified formulation Nereyda Patricia [facility] 08-16-2017 pneumococcal conjugate vaccine, 13 valent Nereyda Joyametz [facility] 08-05-2017 influenza, unspecified formulation Nereyda Patricia [facility] 09-20-2015 zoster vaccine, live [facility] NEGATED: Highlighted row has not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 AUTHOR'S ORGANIZ ATION 09/15/2024 [facility] EPIC DATE CREATED AUTHOR AUTHOR'S ORGANIZ ATION 10/26/2024 [facility] Care Team (unrecognized sect ion and content) Personnel Name: Van Youssef MD Address: Address: [address] [place] [address] Embedded Systems Designer Relationship Specialty Start Date End Date Van Youssef MD [address] [place] [address] [phone] PCP - General Family Medicine 12/02/23 [employer] Designer Relationship Specialty Start Date End Date Van Youssef MD [address] [place] [address] [phone] PCP - General Family Medicine 12/02/23 [employer] Systems Designer Relationship Specialty Start Date End Date Van Youssef MD [address] [place] [facility] [place] [phone] PCP - General Family Medicine 12/02/23 [employer]ded Systems Designer Relationship Specialty Start Date End Date Van Youssef MD [address] [place] [facility] [place] [phone] PCP - General Family Medicine 12/02/23 [employer]ded Systems Designer Relationship Specialty Start Date End Date Van Youssef MD [address] [place] [facility] [place] [phone] PCP - General Family Medicine 12/02/23 [employer] Systems Designer Relationship Specialty Start Date End Date Van Youssef MD [address] [place] [facility] [place] [phone] PCP - General Family Medicine 12/02/23 Reason [...] BE BASED ON THE PRIMARY CLINICAL RECORDS. [facility] [employer] [facility]. provides no warranty or guarantee of the accuracy or completeness of information in this document.
--- NOTE | 2024-10-30 06:31 | PC.NURSE ---
Patient's CBI ran wide open all shift. Manually irrigated the weiner every 4 hours per order. I evacuated several large blood clots from catheter at 2000 and midnight he also had moderate amount of pain with the manual irrigation.When I manually irrigated catheter at 0400 there was very few small blood clots. Patient did not c/o pain at all with 0400 irrigation. Urine has been a watermelon to gorman color most of this shift. VSS Patient is resting comfortably at this time.
[2024-10-30 06:55] LABS: Basophils Percent Auto 0.2 % (0.2-2.0); Eosinophils Absolute Auto 0.1 10^3/uL (0.0-0.7); Eosinophils Percent Auto 0.9 % (0.9-7.0); Hematocrit 35.3 % (42.0-54.0); Hemoglobin 11.6 g/dL (14.0-18.0); Immature Granulocytes Abs Auto 0.07 10^3/uL (0.00-0.03); Immature Granulocytes Pct Auto 0.5 % (0.0-0.5); Lymphocytes Absolute Auto 1.3 10^3/uL (1.2-3.8); Lymphocytes Percent Auto 9.4 % (20.5-60.0); Mean Corpuscular HGB Conc 32.9 g/dL (29.9-35.2); Mean Corpuscular Hemoglobin 34.1 pg (25.9-34.0); Mean Corpuscular Volume 103.8 fL (80.0-94.0); Mean Platelet Volume 12.1 fL (9.5-13.5); Monocytes Absolute Auto 1.4 10^3/uL (0.3-0.8); Monocytes Percent Auto 9.9 % (1.7-12.0); Neutrophils Absolute Auto 11.1 10^3/uL (1.4-6.5); Neutrophils Percent Auto 79.1 % (43.0-75.0); Platelet Count 185 10^3/uL (150-450); Red Cell Distribution Width 14.6 % (11.0-15.0)
[2024-10-30 07:14] LABS: BUN Creatinine Ratio 19.3; Calcium 8.9 mg/dL (8.5-10.1); Carbon Dioxide 26.3 mmol/L (21.0-32.0); Chloride 106 mmol/L (98-107); Estimated GFR (African America 42 (>=60 mL/min/1.73m^2); Estimated GFR (Non-African Ame 34 (>=60 mL/min/1.73m^2); Glucose 199 mg/dL (74-106); Potassium 4.3 mmol/L (3.5-5.1); Sodium 144 mmol/L (136-145)
--- NOTE | 2024-10-30 08:22 | P.PN_ITS ---
Progress Note: Subjective Subjective Interval history: States he did sleep better last night, pain is improved, discussed care with nurse and overnight had less clots and Palomares but still having hematuria despite CBI Exam Constitutional Vital Signs, click to edit/add: Last Vital Signs Temp 97.9 F 10/30/24 04:00 Pulse 73 10/30/24 04:00 Resp 18 10/30/24 04:00 BP 125/64 10/30/24 04:00 Pulse Ox 95 10/30/24 04:00 O2 Del Method Room Air 10/30/24 04:00 Documenting provider has reviewed patient's vital signs: yes Common normals: no apparent distress Chest Common normals: inspection of chest normal Respiratory Common normals: normal respiratory effort and no retractions Cardio Common normals: regular rate and regular rhythm; murmurs detected GI Common normals: Normal to inspection, nondistended, normoactive bowel sounds present Bladder/kidney exam: catheter in place Catheter type (Male): urethral (Hematuria) Progress Note: Objective Labs Labs: Short CBC 10/30/24 Range/Units 06:08 WBC 14.0 H (4.0-11.0) 10^3/uL Hgb 11.6 L (14.0-18.0) g/dL Hct 35.3 L (42.0-54.0) % Plt Count 185 (150-450) 10^3/uL BMP 10/30/24 06:08 Sodium 144 Potassium 4.3 Chloride 106 Carbon Dioxide 26.3 BUN 36.0 H Creatinine 1.87 H Glucose 199 H Calcium 8.9 Progress Note: A&P Assessment and Plan (1) Acute urinary obstruction: (2) Hematuria: Qualifiers: Hematuria type: gross Qualified Code(s): R31.0 - Gross hematuria (3) Clot retention of urine: (4) Congestive heart failure: Qualifiers: Heart failure chronicity: chronic Heart failure type: unspecified Qualified Code(s): I50.9 - Heart failure, unspecified (5) Diabetes: Qualifiers: Diabetes mellitus type: type 2 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: without marine oil terminal superintendent use Diabetes mellitus complication status: with hyperglycemia Qualified Code(s): E11.65 - Type 2 diabetes mellitus with hyperglycemia (6) History of hypertension: (7) Atrial fibrillation: Qualifiers: Atrial fibrillation type: paroxysmal Qualified Code(s): I48.0 - Paroxysmal atrial fibrillation (8) BPH with obstruction/lower urinary tract symptoms: Plan Admission findings: Tachycardia, increasing pain secondary to bladder outlet obstruction resulting in hematuria with clots creating new obstruction, likely from stretch of bladder on initial presentation to ER Acute urinary obstruction secondary to BPH with hematuria and blood clots causing further [id number] in place, continue with CBI, consult to marie thomason, their input greatly appreciated Congestive heart failure: No signs of active heart failure., Denies shortness of breath but not active Diabetes: Sugar significantly elevated, will increase IV scale and restart two of his home medications History of hypertension: Continue with home medications Atrial fibrillation: So far rate controlled-continue to hold Esther Generalized anxiety disorder-continue with home medications Irritable bowel syndrome-continue with home medications Depression-continue with home medications Iron deficiency anemia continue with home medications 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 Having failed the initial observational time. Change patient to inpatient status as of 10/29/2024 Urinary Catheter Management Urinary Catheter Management 3-way Urethral: Cath placed during this visit: yes, but has since been removed by the nurse Insertion date: 10/28/24 Insertion time: 19:35 Removal date: 10/28/24 Removal time: 20:30
[2024-10-30] MEDS: INSULIN ASPART 300 UNIT/3 ML PEN SUBQ ×4 (08:39→21:30)
[2024-10-30 08:42] VITALS: BP 145/67; PULSE 87; TEMP 36.5; O2SAT 91
[2024-10-30] MEDS: ACYCLOVIR 200 MG CAPSULE 400 MG PO ×2 (10:08→20:46)
[2024-10-30] MEDS: POTASSIUM CHLORIDE 10 MEQ ER TABLET 40 MEQ PO (10:09)
[2024-10-30] MEDS: GUAIFENESIN DM 600-30 MG 12 HR TAB 1 TAB PO ×2 (10:09→20:47)
[2024-10-30] MEDS: CANAGLIFLOZIN 100 MG TABLET 300 MG PO (10:09)
[2024-10-30] MEDS: DULOXETINE HCL 20 MG CAPSULE.DR PO (10:09)
[2024-10-30] MEDS: MAGNESIUM OXIDE 400 MG TABLET 800 MG PO ×2 (10:09→20:47)
[2024-10-30] MEDS: FERROUS SULFATE 325 MG TABLET PO ×2 (10:10→20:46)
[2024-10-30] MEDS: CHOLECALCIFEROL (VITAMIN D3) 25 MCG/1,000 UNITS TABLET 50 MCG PO (10:10)
[2024-10-30] MEDS: CLONIDINE HCL 0.1 MG TABLET 0.2 MG PO (10:10)
[2024-10-30] MEDS: EZETIMIBE 10 MG TABLET PO (10:10)
[2024-10-30] MEDS: ALPRAZOLAM 0.25 MG TABLET PO ×2 (10:10→20:46)
[2024-10-30] MEDS: ESCITALOPRAM 10 MG TABLET 5 MG PO (10:10)
--- NOTE | 2024-10-30 10:23 | SWNOTE1 ---
SW met with pt to discuss dc needs. Pt lives at home with his . Pt's in room and answered all questions while pt was trimming his vernon. Pt is independent at home and does not use any DME. Pt has no services coming in. At this time pt's denies any discharge needs. SW to follow as needed.
[2024-10-30] MEDS: LABETALOL HCL 100 MG TABLET PO (10:24)
[2024-10-30] MEDS: LABETALOL HCL 200 MG TABLET PO (10:25)
--- NOTE | 2024-10-30 10:37 | SWNOTE1 ---
Important Message from [employer] reviewed and discussed with patient's . Pt's verbalized understanding and signed the form. Original given to patient and and copy placed in patient?s chart.
[2024-10-30 11:03] LABS: Glucometer 306 mg/dL (74-106)
[2024-10-30] MEDS: B COMPLEX/FOLIC ACID SOFTGEL CAPSULE 1 CAP PO (11:43)
--- NOTE | 2024-10-30 11:58 | PC.NURSE ---
RN manually irrigated catheter, moderate to large amount of small clots noted, no clots have been noted in the weiner, just clear watermelon color
[2024-10-30 13:35] VITALS: BP 113/65; PULSE 69; TEMP 36.7; O2SAT 94
--- NOTE | 2024-10-30 13:39 | PC.NURSE ---
RN spoke with Dr. Rivas and updated him
[2024-10-30 16:34] LABS: Glucometer 175 mg/dL (74-106)
--- NOTE | 2024-10-30 16:57 | PM.PN ---
Progress Note: Subjective Subjective Interval history: States he did sleep better last night, pain is improved, discussed care with nurse and overnight had less clots and Palomares but still having hematuria despite CBI. Was called to gross hematuria and clot retention again all day long. Exam Narrative Exam Narrative: Patient is lying in bed and moaning in pain. Abdomen is distended. From his penis is a 24 [place] three-way coud? Palomares with a large portion of catheter protruding. The Palomares balloon had 30 cc inflated. No urine was draining. The balloon was deflated and I then advanced the catheter and was able to get it into the bladder. The balloon was then reinflated. Immediately bloody urine came out. I then manually irrigated for a half an hour and obtained copious clots. Upon completion the urine was draining clear with CBI. Constitutional Vital Signs, click to edit/add: Last Vital Signs Temp 98.0 F 10/30/24 13:35 Pulse 69 10/30/24 13:35 Resp 18 10/30/24 13:35 BP 113/65 10/30/24 13:35 Pulse Ox 94 L 10/30/24 13:35 O2 Del Method Room Air 10/30/24 13:35 Progress Note: Objective Labs Labs: Short CBC 10/30/24 Range/Units 06:08 WBC 14.0 H (4.0-11.0) 10^3/uL Hgb 11.6 L (14.0-18.0) g/dL Hct 35.3 L (42.0-54.0) % Plt Count 185 (150-450) 10^3/uL BMP 10/30/24 06:08 Sodium 144 Potassium 4.3 Chloride 106 Carbon Dioxide 26.3 BUN 36.0 H Creatinine 1.87 H Glucose 199 H Calcium 8.9 Progress Note: A&P Assessment and Plan (1) Acute urinary obstruction: (2) Hematuria: Assessment and Plan: He has dropped his hemoglobin nearly 2 g since his admission. Qualifiers: Hematuria type: gross Qualified Code(s): R31.0 - Gross hematuria (3) Clot retention of urine: Assessment and Plan: This gentleman had clot retention again. Numerous clots were evacuated at the bedside. He now has a 24 [place] three-way coud? Palomares placed correctly and draining to gravity and CBI is running clear. He is still off of his blood thinners and on prophylactic antibiotics., I would continue the CBI and titrated down and continue manual irrigations every 4 hours until tomorrow morning. If all is good tomorrow, the scheduled irrigations can stop and the CBI can be weaned to off. Upon discharge, he will need to go home with this Palomares catheter indwelling. 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: without intermodal owner operator truck driver use Diabetes mellitus complication status: with hyperglycemia Qualified Code(s): E11.65 - Type 2 diabetes mellitus with hyperglycemia (6) History of hypertension: (7) Atrial fibrillation: Qualifiers: Atrial fibrillation type: paroxysmal Qualified Code(s): I48.0 - Paroxysmal atrial fibrillation (8) BPH with obstruction/lower urinary tract symptoms: Urinary Catheter Management Urinary Catheter Management 3-way Urethral: Cath placed during this visit: yes, but has since been removed by the nurse Insertion date: 10/28/24 Insertion time: 19:35 Removal date: 10/28/24 Removal time: 20:30
[2024-10-30] MEDS: DICYCLOMINE HCL 10 MG CAPSULE PO (18:56)
[2024-10-30 19:32] VITALS: BP 150/63; PULSE 76; TEMP 36.6; O2SAT 93
[2024-10-30] MEDS: LABETALOL HCL 100 MG TABLET 300 MG PO (20:46)
[2024-10-30] MEDS: TAMSULOSIN HCL 0.4 MG CAPSULE PO (20:46)
[2024-10-30] MEDS: METOCLOPRAMIDE HCL 10 MG TABLET 5 MG PO (21:29)
[2024-10-30 21:30] LABS: Glucometer 256 mg/dL (74-106)
[2024-10-30] MEDS: DIPHENHYDRAMINE HCL 25 MG CAPSULE PO (21:30)
[2024-10-30] MEDS: ACETAMINOPHEN 500 MG TABLET PO (21:30)
[2024-10-30] MEDS: CEFTRIAXONE 1,000 MG in 0.9 % SODIUM CHLORIDE 50 ML 100 MG IV (21:32)
[2024-10-31] VITALS: BP 125/70; PULSE 74; TEMP 36.9; O2SAT 91
[2024-10-31] MEDS: SODIUM CHLORIDE IRRIG SOLUTION 3,000 ML 3000 ML IRR ×3 (01:24→06:03)
[2024-10-31 03:47] VITALS: BP 138/76; PULSE 90; TEMP 36.6; O2SAT 91
[2024-10-31 06:40] LABS: Basophils Percent Auto 0.3 % (0.2-2.0); Eosinophils Absolute Auto 0.2 10^3/uL (0.0-0.7); Eosinophils Percent Auto 1.7 % (0.9-7.0); Hematocrit 31.8 % (42.0-54.0); Hemoglobin 10.5 g/dL (14.0-18.0); Immature Granulocytes Abs Auto 0.09 10^3/uL (0.00-0.03); Immature Granulocytes Pct Auto 0.8 % (0.0-0.5); Lymphocytes Absolute Auto 1.3 10^3/uL (1.2-3.8); Lymphocytes Percent Auto 10.8 % (20.5-60.0); Mean Corpuscular Hemoglobin 34.3 pg (25.9-34.0); Mean Corpuscular Volume 103.9 fL (80.0-94.0); Mean Platelet Volume 11.6 fL (9.5-13.5); Monocytes Absolute Auto 1.4 10^3/uL (0.3-0.8); Monocytes Percent Auto 11.8 % (1.7-12.0); Neutrophils Absolute Auto 8.9 10^3/uL (1.4-6.5); Neutrophils Percent Auto 74.6 % (43.0-75.0); Platelet Count 196 10^3/uL (150-450); Red Blood Count 3.06 10^6/uL (4.70-6.10); Red Cell Distribution Width 14.6 % (11.0-15.0); White Blood Count 11.9 10^3/uL (4.0-11.0)
[2024-10-31 06:54] LABS: Anion Gap 15.5; BUN Creatinine Ratio 17.8; Calcium 8.3 mg/dL (8.5-10.1); Carbon Dioxide 25.1 mmol/L (21.0-32.0); Chloride 104 mmol/L (98-107); Estimated GFR (African America 47 (>=60 mL/min/1.73m^2); Estimated GFR (Non-African Ame 39 (>=60 mL/min/1.73m^2); Glucose 202 mg/dL (74-106); Potassium 4.6 mmol/L (3.5-5.1); Sodium 140 mmol/L (136-145)
--- NOTE | 2024-10-31 07:18 | P.DS_ITS ---
DS: Providers Provider Date of admission: 10/29/24 07:56 Primary care physician: Pj Sung MD Consults: 10/28/24 23:33 Consult to Urology Routine Consulting Provider: Mejia Hoffmann Reason for consultation: urien retension 10/29/24 07:00 Consult to Urology Routine Consulting Provider: Mejia Hoffmann Reason for consultation: Urinary retention with hematuria Has provider been notified: Yes DS: Diagnosis Discharge Diagnosis (1) Acute urinary obstruction: (2) Hematuria: Qualifiers: Hematuria type: gross Qualified Code(s): R31.0 - Gross hematuria (3) Clot retention of urine: (4) Congestive heart failure: Qualifiers: Heart failure chronicity: chronic Heart failure type: unspecified Qualified Code(s): I50.9 - Heart failure, unspecified (5) Diabetes: Qualifiers: Diabetes mellitus type: type 2 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 insulin use: without assisted use Diabetes mellitus complication status: with hyperglycemia Qualified Code(s): E11.65 - Type 2 diabetes mellitus with hyperglycemia (6) History of hypertension: (7) Atrial fibrillation: Qualifiers: Atrial fibrillation type: paroxysmal Qualified Code(s): I48.0 - Paroxysmal atrial fibrillation (8) BPH with obstruction/lower urinary tract symptoms: Plan Admission findings: Tachycardia, increasing pain secondary to bladder outlet obstruction resulting in hematuria with clots creating new obstruction, likely from stretch of bladder on initial presentation to ER Acute urinary obstruction secondary to BPH with hematuria and blood clots causing further [id number] in place, much improved at the time of discharge Acute blood loss anemia secondary to hematuria-over 2 g down from admission Congestive heart failure: Stable at discharge Diabetes: Sugars continue to fluctuate-monitor as an outpatient History of hypertension: Continue with home medications Atrial fibrillation: Restarting Eliquis Generalized anxiety disorder-continue with home medications Irritable bowel syndrome-continue with home medications Depression-continue with home medications Iron deficiency anemia continue with home medications-see above 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 Having failed the initial observational time. Change patient to inpatient status as of 10/29/2024 DS: Summary Hospital Course Hospital Course: Patient was seen and evaluated in the emergency room with bladder outlet obs truction, Palomares catheter was placed, returned later with significant hematuria. Three-way catheter was placed and it was irrigated. I then repeat irrigation and then manually yesterday by urology. Bleeding is slowed down since that time of removal of significant number of clots yesterday and day before. So far this morning with the CBI running at a low rate urine is clear. The plan is to wean off the CBI, if no further hematuria we can restart his Eliquis and patient will be discharged to home in improving condition. Medications see list. Follow-up with urology within the next week. Time Spent with Patient Time attestation: Total time spent providing and/or coordinating discharge services: Exam Constitutional Vital Signs, click to edit/add: Last Vital Signs Temp 97.9 F 10/31/24 03:47 Pulse 90 10/31/24 03:47 Resp 16 10/31/24 03:47 BP 138/76 10/31/24 03:47 Pulse Ox 91 L 10/31/24 03:47 O2 Del Method Room Air 10/31/24 03:47 Documenting provider has reviewed patient's vital signs: yes Common normals: no apparent distress Chest Common normals: inspection of chest normal Respiratory Common normals: normal respiratory effort and no retractions Cardio Common normals: regular rate and regular rhythm; murmurs detected GI Common normals: Normal to inspection, nondistended, normoactive bowel sounds present Bladder/kidney exam: catheter in place Catheter type (Male): urethral (Hematuria) DS: Data Data Completed and Pending Labs on day of discharge: Labs from last 24 hours 10/31/24 10/30/24 10/30/24 06:03 21:29 16:30 WBC 11.9 H RBC 3.06 L Hgb 10.5 L Hct 31.8 L MCV 103.9 H MCH 34.3 H MCHC 33.0 RDW 14.6 Plt Count 196 MPV 11.6 Neut % (Auto) 74.6 Lymph % (Auto) 10.8 L Meade % (Auto) 11.8 Eos % (Auto) 1.7 Baso % (Auto) 0.3 Neut # (Auto) 8.9 H Lymph # (Auto) 1.3 Meade # (Auto) 1.4 H Eos # (Auto) 0.2 Baso # (Auto) 0.0 Abs Immat Gran (auto) 0.09 H Imm/Tot Granulo (auto) 0.8 H Sodium 140 Potassium 4.6 Chloride 104 Carbon Dioxide 25.1 Anion Gap 15.5 BUN 30.0 H Creatinine 1.69 H Est GFR ( Amer) 47 L Est GFR (Non-Af Amer) 39 L BUN/Creatinine Ratio 17.8 Glucose 202 H Calcium 8.3 L POC Glucose 256 H 175 H 10/30/24 10/30/24 10:59 06:08 WBC RBC Hgb Hct MCV MCH MCHC RDW Plt Count MPV Neut % (Auto) Lymph % (Auto) Meade % (Auto) Eos % (Auto) Baso % (Auto) Neut # (Auto) Lymph # (Auto) Meade # (Auto) Eos # (Auto) Baso # (Auto) Abs Immat Gran (auto) Imm/Tot Granulo (auto) Sodium 144 Potassium 4.3 Chloride 106 Carbon Dioxide 26.3 Anion Gap 16.0 BUN 36.0 H Creatinine 1.87 H Est GFR ( Amer) 42 L Est GFR (Non-Af Amer) 34 L BUN/Creatinine Ratio 19.3 Glucose 199 H Calcium 8.9 POC Glucose 306 H Discharge Plan Discharge Disposition: Home, Self-Care Discharge Medications: New cefdinir 300 mg capsule 600 mg PO DAILY Qty: 10 0RF Continued pioglitazone [Actos] 45 mg tablet 45 mg PO DAILY alprazolam 0.25 mg tablet 0.25 mg PO BID duloxetine 20 mg capsule,delayed release(DR/EC) 20 mg PO .QD escitalopram oxalate 5 mg tablet 5 mg PO .QD potassium chloride 20 mEq tablet,ER particles/crystals 40 meq PO .QD dextromethorphan-guaifenesin 30-600 mg tablet extended release 12 hr 1 tab PO Q12H clonidine HCl 0.1 mg Tablet 0.2 mg PO Q12H Qty: 120 11RF phenazopyridine 100 mg tablet 100 mg PO Q8H PRN (Reason: pain) acyclovir 400 mg tablet 400 mg PO Q12H dicyclomine 10 mg capsule 10 mg PO QID PRN (Reason: abdominal pain) ezetimibe 10 mg tablet 10 mg PO DAILY ferrous sulfate 325 mg (65 mg iron) tablet 325 mg PO BID furosemide 40 mg tablet 40 mg PO Q12H glimepiride 4 mg tablet 8 mg PO DAILY Rx Instructions: AT NOON labetalol 300 mg tablet 300 mg PO Q12H metoclopramide HCl 5 mg tablet 5 mg PO BEDTIME tamsulosin 0.4 mg capsule 0.4 mg PO Q24H magnesium 500 mg See Rx Instructions PO BID Rx Instructions: 2 TABLETS orally twice a day; Jardiance 25 mg tablet 25 mg PO DAILY Vitamin B-Complex tablet 1 tab PO .NOON cholecalciferol (vitamin D3) [Thera-D] 50 mcg (2,000 unit) tablet 2,000 unit PO DAILY ACETAMINOPHEN PM tablet 1 tab PO BEDTIME aspirin [Adult Low Dose Aspirin] 81 mg tablet,delayed release (DR/EC) 81 mg PO DAILY apixaban 2.5 mg tablet 2.5 mg PO BID alogliptin 25 mg tablet 25 mg PO DAILY Print Language: Greenlandic Forms: Portal Instructions
[2024-10-31 08:19] VITALS: BP 161/78; PULSE 77; TEMP 36.7; O2SAT 94
[2024-10-31] MEDS: INSULIN ASPART 300 UNIT/3 ML PEN SUBQ ×2 (08:25→12:39)
[2024-10-31] MEDS: LABETALOL HCL 100 MG TABLET 300 MG PO (08:25)
[2024-10-31] MEDS: CANAGLIFLOZIN 100 MG TABLET 300 MG PO (08:25)
[2024-10-31] MEDS: MAGNESIUM OXIDE 400 MG TABLET 800 MG PO (08:25)
[2024-10-31] MEDS: POTASSIUM CHLORIDE 10 MEQ ER TABLET 40 MEQ PO (08:25)
[2024-10-31] MEDS: DULOXETINE HCL 20 MG CAPSULE.DR PO (08:25)
[2024-10-31] MEDS: CHOLECALCIFEROL (VITAMIN D3) 25 MCG/1,000 UNITS TABLET 50 MCG PO (08:25)
[2024-10-31] MEDS: EZETIMIBE 10 MG TABLET PO (08:26)
[2024-10-31] MEDS: GUAIFENESIN DM 600-30 MG 12 HR TAB 1 TAB PO (08:26)
[2024-10-31] MEDS: FERROUS SULFATE 325 MG TABLET PO (08:26)
[2024-10-31] MEDS: ESCITALOPRAM 10 MG TABLET 5 MG PO (08:26)
[2024-10-31] MEDS: ACYCLOVIR 200 MG CAPSULE 400 MG PO (08:26)
[2024-10-31] MEDS: APIXABAN 5 MG TABLET 2.5 MG PO (08:26)
[2024-10-31] MEDS: ALPRAZOLAM 0.25 MG TABLET PO (08:26)
--- NOTE | 2024-10-31 10:12 | SWNOTE1 ---
SW spoke to nurse and therapy is assessing pt for discharge needs as pt has not been out of bed due to CBI running. SW to review therapy notes prior to discharge.
[2024-10-31 11:32] LABS: Glucometer 227 mg/dL (74-106)
[2024-10-31] MEDS: B COMPLEX/FOLIC ACID SOFTGEL CAPSULE 1 CAP PO (12:39)
--- NOTE | 2024-10-31 12:43 | SWNOTE1 ---
SW called over to PT, but physical therapist was back over at outpt. SW called over to outpt and spoke to SHANK MAKER. She was able to ask to physical therapist what was recommended. Physical therapist recommended outpt services. SW went in and spoke to pt and . SW let them know the recommendations of outpt therapy. At this time pt and are refusing. SW advised pt and that they can reach out to PCP if pt gets home and is feeling weaker and would like outpt therapy. They voiced understanding. SW updated nurse.
--- NOTE | 2024-11-01 13:06 | CM.DCFOLLOWU ---
Person spoke with:patient's , Shanna How are you feeling? doing well, getting up and walking with walker to keep him moving How is your pain?none Did you understand your discharge instructions?yes Do you have any questions about your discharge instructions?no Were you given any prescriptions at discharge?yes Were you able to get your prescriptions filled?yes Do you understand how to take your medications as ordered?yes Do you have any questions about your follow up appointment and do you plan to keep your follow up appointment? no questions, follow up reviewed Is there anything else that you would like to discuss?no Questions/Comments/Concerns/Other:none
== END 2024-10-31 13:51 | disposition home or self-care (01) | DRG 726 ==
LOC: ER 22:34 → MS 10-29 07:11
PROVIDERS: Family Medicine; Admitting Provider Family Medicine; Emergency Provider Emergency Medicine; PCP Family Medicine; Visit Provider Family Medicine
DX: N40.1 Benign prostatic hyperplasia with lower urinary tract symptoms (principal); N13.8 Other obstructive and reflux uropathy; D62 Acute posthemorrhagic anemia; I13.0 Hypertensive heart and chronic kidney disease with heart failure and stage 1 through stage 4 chronic kidney disease, or unspecified chronic kidney disease; N32.89 Other specified disorders of bladder; N18.2 Chronic kidney disease, stage 2 (mild); R31.0 Gross hematuria; D50.9 Iron deficiency anemia, unspecified; E11.65 Type 2 diabetes mellitus with hyperglycemia; E78.00 Pure hypercholesterolemia, unspecified; F32.A Depression, unspecified; F41.1 Generalized anxiety disorder; I48.91 Unspecified atrial fibrillation; I50.9 Heart failure, unspecified; K21.9 Gastro-esophageal reflux disease without esophagitis; K58.9 Irritable bowel syndrome, unspecified; Z96.0 Presence of urogenital implants; Z98.890 Other specified postprocedural states; Z79.01 Long term (current) use of anticoagulants; Z79.82 Long term (current) use of aspirin; Z79.84 Long term (current) use of oral hypoglycemic drugs; Z90.49 Acquired absence of other specified parts of digestive tract; Z87.891 Personal history of nicotine dependence; Z88.8 Allergy status to other drugs, medicaments and biological substances; Z91.041 Radiographic dye allergy status
CPT/HCPCS: 36415; 51702; 80048; 80053; 82948; 85025; 85027; 85610; 86850; 86900; 86901; 96365; 96375; 96376; 97162; 99283; 99285; J0696; J2270; J3010; Q0177

== ENCOUNTER 2024-11-10 11:13 | Outpatient (OUT) | payer MEDICARE, SELFPAY ==
--- OUTSIDE RECORDS SUMMARY | 2024-11-10 11:19 | XMS_ITS | CCD ---
Author Organization [facility] Care Team Providers Care Arc Air Operator Name Role Phone PHYSICIAN, DEFAULT Admitting Unavailable PHYSICIAN, DEFAULT Attending Unavailable VAN YOUSSEF Primary Care Unavailable Van Youssef Primary Care Physician JANETY ., DR ARAUJO Primary Care Unavailable HOY ., DR ARAUJO Consulting Unavailable HOY ., DR ARAUJO Attending Unavailable HOY ., DR ARAUJO Admitting Unavailable ZIEBER, DR CLOVER Zimmer Consulting Unavailable KANATAK, DR CRAMER Consulting Unavailable HOY ., DR ARAUJO Primary Care Unavailable KANATAK, DR CRAMER Attending Unavailable KANATAK, DR CRAMER Admitting Unavailable KANATAK, DR CRAMER Consulting Unavailable HOY ., DR ARAUJO Primary Care Unavailable KANATAK, DR CRAMER Attending Unavailable KANATAK, DR CRAMER Admitting Unavailable HOY ., DR ARAUJO Consulting Unavailable HOY ., DR ARAUJO Primary Care Unavailable HOY ., DR ARAUJO Attending Unavailable HOY ., DR ARAUJO Admitting Unavailable KANATAK, DR CRAMER Consulting Unavailable HOY ., DR ARAUJO Primary Care Unavailable KANATAK, DR CRAMER Attending Unavailable KANATAK, DR CRAMER Admitting Unavailable HOY ., DR [...] PREETI Consulting Unavailable RUTHIE LINDA Attending Unavailable JEFF REYES Attending Unavailable MOUKARBEL, CLARIBEL Attending Unavailable MOUKARBEL, CLARIBEL Attending Unavailable MOUKARBEL, CLARIBEL Attending Unavailable MOUKARBEL, CLARIBEL Attending Unavailable DANA APARICIO Attending Unavailable EDD, CLARIBEL Referring Unavailable Pineda GUSTAFSON, Van Fernandez Primary Care Provider [phone] BLAISE CHICAS Attending Unavailable BARRIE MONTOYA Attending Unavailable BLAISE CHICAS Attending Unavailable BLAISE CHICAS Attending Unavailable BLAISE CHICAS Attending Unavailable BLAISE CHICAS Attending Unavailable BLAISE CHICAS Attending Unavailable BARRIE MONTOYA Attending Unavailable BLAISE CHICAS Attending Unavailable PETRODNEY QUINTERO Attending Unavailable BLAISE CHICAS Attending Unavailable NKANSAH-AMANKRA, MARQUIS Referring Unavail able NKANSAH-AMANKRA, MARQUIS Attending Unavail able NKANSAH-AMANKRA, MARQUIS Attending Unavail able NKANSAH-AMANKRA, MARQUIS Referring Unavail able Nereyda Gomez Attending Unavailable Nereyda Gomez Attending Unavailable Mejia SINGH Attending Unavailable Mejia SINGH Referring Unavailable NKANSAH-AMANKRA, MARQUIS Attending Unavail able NKANSAH-AMANKRA, MARQUIS Referring Unavail able NKANSAH-AMANKRA, MARQUIS Attending Unavail able Mejia SINGH Attending Unavailable NKANSAH-AMANKRA, MARQUIS Attending Unavail able NKANSAH-AMANKRA, MARQUIS Referring Unavail able NKANSAH-AMANKRA, MARQUIS Admitting Unavail able NKANSAH-AMANKRA, MARQUIS Attending Unavail able NKANSAH-AMANKRA, MARQUIS Referring Unavail able NKANSAH-AMANKRA, MARQUIS Admitting Unavail able NKANSAH-AMANKRA, MARQUIS Attending Unavail able NKANSAH-AMANKRA, MARQUIS Attending [facility] able Allergies Allergy Classification Reported Allergen(s) Allergy Type Date of Onset Reaction(s) Facility (19 sources) Aminolevulinic Acid; Translations: [aminolevulinic acid] Drug Allergy 11-04-20 13 Unknown [facility] Repository (1 source) NITRO PATCH; Translations: [NITRO PATCH] Propensity to adverse reactions (disorder) 03-18-20 12 [facility] Repository (17 sources) Contrast media; Translations: [Contrast Dye] Drug allergy Unknown (qualifier value) [facility] (20 sources) Hmg-Coa Reductase Inhibitors (Statins); Translations: [statins] Allergy to substance 08-24-[address] [facility] (20 sources) Nitroglycerin; Translations: [nitroglycerin] Drug Allergy 02-23-20 22 Unknown (qualifier value) [facility] (2 sources) black walnut pollen extract; Translations: [[id number] REDUCTASE INHIBITORS] Drug Allergy 04-21-20 17 [facility] Repository (1 source) Iodine (And Iodine Containting Drugs) Drug allergy (disorder) 05-28-20 16 [facility] Repository (20 sources) IODINATED CONTRAST MEDIA; Translations: [IODINATED CONTRAST MEDIA] Propensity to adverse reactions to drug (disorder) 07-17-20 22 [facility] Repository (19 sources) Nitroglycerin Allergy to substance 02-23-20 [facility] (3 sources) Simvastatin; Translations: [simvastatin] Drug Allergy elevated liver enzymes [facility] (1 source) Aminolevulinic Acid; Translations: [aminolevulinic acid] Drug Allergy 11-04-20 13 [facility] Repository (1 source) Nitroglycerin; Translations: [Nitroglycerin Patch] Drug Allergy [facility] Repository Medications Current Medications Medication Drug Class(es) Dates Sig (Normalized) Sig (Original) acetaminophen 325 mg / HYDROcodone bitartrate 5 mg oral tablet (3 sources) Opioid Agonist Start: 10-16-2024 take 1 tablet by mouth every six hours as needed for pain, then take 2 tablets by mouth every six hours as needed for pain [place] 325 mg-5 mg oral tablet 1 tab(s), Oral, q6hr, 2 tab(s), Refill(s) 0, Take q6hrs as needed for pain., [facility]/pharmacy #[id number], 185, cm, 10/02/24 11:15:00 EST, Height/Length [...] Status: Ordered alogliptin 25 mg oral tablet (19 sources) Start: 11-12-2022 take 1 tablet by mouth in the morning alogliptin (Nesina) 25 MG tablet Take 1 tablet by mouth in the morning. 11/12/2022 Active ALPRAZolam 0.25 mg oral tablet (19 sources) Benzodiazepine ALPRAZolam (Xanax) 0.25 MG tablet [...] mouth in the morning. Active B-Complex tablet (19 sources) B-Complex tablet as directed Orally Active Symbicort (20 sources) Corticosteroid, beta2-Adrenergic Agonist Start: 01-09-2019 Symbicort 80-4. 5 mcg/actuation, Inhalation, BID, Refill(s) 0, COPD Start Date: 01/09/19 Status: Ordered End: 08-01-2024 budesonide-formoterol (Symbi sandra) 80-4.5 MCG/ACT inhaler 1 (one) time each day at the same time. 08/01/2024 Discontinued cholecalciferol 0.025 mg oral tablet (19 sources) Vitamin D cholecalciferol (Vitamin D-[address]) 25 MCG (1000 UT) tablet Take 2,000 Units by mouth in the morning. Active ciprofloxacin 500 mg oral tablet (4 sources) Quinolone Antimicrobial Start: 024 take 1 tablet by mouth twice daily Cipro 500 mg Tab 500 mg = 1 tab(s), Oral, BID, Start 1 day prior to procedure., # 6 tab(s), Refills(s) 0, Pharmacy: [facility]/pharmacy #[id number], 185, cm, 10/02/24 11:15:00 EST, Height/Length Dosing, 91, kg, 10/02/24 11:15:00 EST, Weight Dosing Start Date: 10/16/24 Status: Ordered Start: 08-11-2024 take 1 tablet by joslyn th twice daily Cipro 500 mg Tab 500 mg = 1 tab(s), Oral, BID, Start 3 days prior to procedure., # 6 tab(s), Refills(s) 0, Pharmacy: [facility]/pharmacy #[id number], 185, cm, 08/08/24 10:28:00 EDT, Height/Length Dosing, 91, kg, 08/08/24 10:28:00 EDT, Weight Dosing Start Date: 08/11/24 Status: Ordered cloNIDine hydrochloride 0.1 mg oral tablet (20 sources) Central alpha-2 Adrenergic Agonist Start: 01-09-2019 take 0.1 mg by mouth twice daily clonidine 0.1 mg, Oral, BID, Refills(s) 0, High blood pressure Start Date: 01/09/19 Status: Ordered diazePAM 10 mg oral tablet (3 sources) Benzodiazepine Start: 10-16-2024 Valium 10 mg Tab 10 mg = 1 tab(s), Oral, Once, take one hour prior to the procedure., # 1 tab(s), Refills(s) 0, Pharmacy: [facility]/pharmacy #[id number], 185, cm, 10/02/24 11:15:00 EST, Height/Length [...] DULoxetine 20 mg delayed release oral capsule (12 sources) Serotonin and Norepinephrine Reuptake Inhibitor Start: [...] take 1 tablet by mouth in the dc rning ferrous sulfate 325 (65 Fe) MG [...] Status: Ordered gabapentin 600 mg oral tablet (16 sources) Anti-epileptic Agent Start: 01-09-2019 gabapenti n 600 mg, Oral, qNOON, Refills(s) 0, Neuropathy Start Date: 01/09/19 Status: Ordered glimepiride 2 mg oral tablet (20 sources) Sulfonylurea Start: 01-09-2019 take 2 mg by mouth once daily glimepiride 2 mg, Oral, Daily, Refills(s) 0, High blood sugar Start Date: 01/09/19 Status: Ordered take 1 tablet by mouth in the dc rning glimepiride (Amaryl) 4 MG tablet Take 1 tablet by mouth in the morning and 1 tablet before bedtime. Active hydrALAZINE hydrochloride 100 mg oral tablet (20 sources) Arteriolar Vasodilator Start: 01-09-2019 End: 08-01-2024 take 100 mg by mouth twice daily [...] DAILY Active levoFLOXacin 750 mg oral tablet (19 sources) Quinolone Antimicrobial Start: 07-23-2023 levoFLOXacin (Levaquin) 750 MG tablet 1 (one) time each day at the same time. 07/23/2023 Active magnesium oxide 500 mg oral tablet (16 sources) Start: 08-28-2020 take 500 mg by mouth once daily magnesium oxide 500 mg, Oral, Daily, Refills(s) 0, Prophylaxis Start Date: 08/28/20 Status: Ordered Start: 08-28-2020 magnesium oxid e Oral, Refills(s) 0 Start Date: 08/28/20 Status: Ordered metFORMIN hydrochloride 500 mg oral tablet (15 sources) Biguanide Start: 08-08-2024 metformin 500 mg Tab Refills(s) 0 Start Date: 08/08/24 Status: Ordered Start: 08-28-2020 End: 08-01-2024 take 1 mg by mouth once daily [...] hours Active mupirocin 20 mg/ml topical cream (5 sources) RNA Synthetase Inhibitor Antibacterial Start: 08-08-2024 mupirocin Top 2% Crm Refill(s) 0 Start Date: 08/08/24 Status: Ordered 24 hr NIFEdipine 90 mg extended release oral tablet (20 sources) Dihydropyridine Calcium Channel Ora Start: 01-09-2019 take 90 mg by mouth twice daily NIFEdipine 90 mg, Oral, BID, Refills(s) 0, High blood pressure Start Date: 01/09/19 Status: Ordered Start: 01-09-2019 take 90 mg by mouth once daily NIFEdipine 90 mg, Oral, Daily, Refills(s) 0, High blood pressure Start Date: 01/09/19 Status: Ordered End: 08-01-2024 take 1 tablet by mouth twice daily NIFEdipine XL (Procardia XL) 60 MG 24 hr tablet Take 1 tablet twice a day by oral route for 90 days. 08/01/2024 Discontinued NuLYTELY Lemus oral powder for reconstitution (1 [...] week(s), # 42 tab(s), Refills(s) 0, Pharmacy: [facility]/pharmacy #[id number], 185, cm, 10/02/24 11:15:00 EST, Height/Length [...] 90 tablet 1 08/01/2024 Active Start: 01-11-2024 End: 08-01-2024 primidone (Mysoline) 50 MG t ablet Indications: Benign essential tremor 1 tab TID 270 tablet 3 01/11/2024 08/01/2024 Discontinued (Reorder) Start: 01-09-2019 take 1 tablet by joslyn th once daily at bedtime primidone 50 mg Tab 50 mg = 1 tab(s), Oral, Once a day (at bedtime), # 30 tab(s), Refills(s) 0, Seizure Start Date: 01/09/19 Status: Ordered SITagliptin 100 mg oral tablet (16 sources) Dipeptidyl Peptidase 4 Inhibitor Start: 01-09-2019 [...] Date: 01/09/19 Status: Ordered 60 actuat tiotropium 0.33460 mg/actuat inhalation spray (15 sources) Anticholinergic Start: 01-09-2019 Spiriva Respimat 1.25 mcg/inh inhalation aerosol 2 puff(s), Inhalation, Daily, Refill(s) 0, COPD Start Date: 01/09/19 Status: Ordered Completed/Discontinued Medications Medication Drug Class(es) Dates Sig (Normalized) Sig (Original) Bacillus Coagulans-Inulin (Align Prebiotic-Probiotic ) 5-1.25 MG-GM chewable tablet (9 sources) End: 08-01-2024 Bacillus Coagulans-Inulin (Align Prebiotic-Probiotic) 5-1.25 MG-GM chewable tablet 1 capsule 1 (one) time each day at the same time. 08/01/2024 Discontinued Bacillus Coagula ns-Inulin (Align Prebiotic-Probiotic) 5-1.25 MG-GM chewable tablet 1 capsule 1 (one) time each day at the same time. Active betamethasone 0.5 mg/ml / clotrimazole 10 mg/ml topical cream (5 sources) Azole Antifungal, Corticosteroid Start: 08-08-2024 betamethasone-clotrimazole Top 0.05%-1% Crm 15 gram Refill(s) 0 Start Date: 08/08/24 Status: Ordered bifidobacterium infantis 4 mg oral capsule (16 sources) Start: 06-10-2023 End: 08-01-2024 take 1 capsule by mouth once daily Probiotic Product (Align) capsule TAKE 1 CAPSULE BY MOUTH DAILY AFTER COMPLETING THE ANTIBIOTICS COURSE 06/10/2023 08/01/2024 Discontinued Start: 08-28-2020 take 1 capsule by [facility] once daily Align 4 mg oral capsule 4 mg = 1 cap(s), Oral, Daily, Take after completing the Antibiotics course, # 28 cap(s), Refills(s) 0, [id number], cm, 08/28/20 12:05:00 EDT, Height/Length Dosing, 103.7, kg, 08/28/20 12:05:00 EDT, Weight Dosing Start Date: 08/28/20 Status: Ordered psyllium 525 mg oral capsule (16 sources) Start: 08-28-2020 take 8 capsules by mouth once daily Metamucil 525 mg oral capsule 1,050 mg = 2 cap(s), Oral, Daily, Take 2 hour apart from the other medications with at least 8 ounces of water, # 160 cap(s), Refills(s) 1, [id number], cm, 08/28/20 12:05:00 EDT, Height/Length Dosing, 103.7, kg, 08/28/20 12:05:00 EDT, Weight Dosing Start Date: 08/28/20 Status: Ordered Problems Active Problems Problem Classification Problem Date Documented Da te Episodic/Chronic Abdominal pain (1 source) Abdominal pain; Translations: [Unspecified abdominal pain] Onset: 10-01-2023 Episodic Asthma (16 sources) Asthma 08-28-2020 Chronic Cardiac dysrhythmias (1 [...] disease (2 sources) Atherosclerotic heart disease of [place] coronary artery without angina pectoris; Translations: [Atherosclerotic heart disease of [place] coronary artery without angina pectoris] Onset: 03-03-2024 Chronic Deficiency and other anemia (1 source) Anemia, unspecified; Translations: [ANEMIA UNSPECIFIED] Onset: 03-04-2023 Episodic Diabetes mellitus with complications (8 sources) Type 2 diabetes mellitus with hyperglycemia; Translations: [Type 2 diabetes mellitus with diabetic chronic kidney disease] Onset: 08-27-2022 Chronic Diabetes mellitus without complication (17 sources) Diabetes mellitus; Translations: [Type 2 diabetes mellitus without complications] Onset: 04-30-2022 08-28-2020 Chronic Disorders of lipid metabolism (4 sources) Hyperlipidemia, unspecified; Translations: [HYPERLIPIDEMIA UNSPECIFIED] Onset: 04-28-2022 Chronic Diverticulosis and diverticulitis (15 sources) Diverticula of intestine; Translations: [Diverticulosis of intestine, part unspecified, without perforation or abscess without bleeding] Onset: 06-09-2022 Chronic Essential hypertension (3 sources) Essential (primary) hypertension; Translations: [ESSENTIAL PRIMARY HYPERTENSION] Onset: 04-30-2022 Chronic Fluid and electrolyte disorders (5 sources) Hypo-osmolality and hyponatremia; Translations: [Hyperkalemia] Onset: 08-27-2022 Episodic Genitourinary symptoms and ill-defined conditions (10 sources) Retention of urine; Translations: [Retention of urine, unspecified] Onset: 08-08-2024 Episodic Heart valve disorders (7 sources) Nonrheumatic aortic (valve) stenosis; Translations: [Rheumatic tricuspid insufficiency] Onset: 07-01-2022 Chronic Hemorrhoids (15 sources) Hemorrhoids; Translations: [Unspecified hemorrhoids] Onset: 06-09-2022 Episodic Hyperplasia of prostate (7 sources) Benign prostatic hypertrophy with outflow obstruction; Translations: [Benign prostatic hyperplasia with lower urinary tract symptoms] Onset: 08-08-2024 Chronic Hypertension with complications and secondary hypertension (1 source) Hypertensive chronic kidney disease with stage 1 through stage 4 chronic kidney disease, or unspecified chronic kidney disease; Translations: [HTN CKD W/STAGE 1-4 CKD/UNS CKD] Onset: 08-27-2022 Chronic Inflammatory conditions of male genital organs (7 sources) Balanitis; 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] Onset: 08-08-2024 Chronic Mycoses (4 sources) Pain in toe; Translations: [Tinea unguium] 09-08-2024 Episodic Nausea and vomiting (9 sources) Nausea; Translations: [Nausea] Onset: 10-01-2023 Episodic Nutritional deficiencies (2 sources) Vitamin D deficiency, unspecified; Translations: [Vitamin D deficiency, unspecified] Onset: 06-07-2024 Chronic Other aftercare (2 sources) Long-term current use of anticoagulant; Translations: [residential (current) use of anticoagulants] Onset: 08-08-2024 Episodic Other and unspecified benign neoplasm (20 sources) History of polyp of colon; Translations: [Personal history of colonic polyps] Onset: 03-31-2022 Episodic Other and unspecified benign neoplasm (17 sources) Polyp of colon; Translations: [Polyp of colon] Onset: 06-09-2022 08-28-2020 Episodic Other and unspecified benign neoplasm (2 sources) Melanocytic nevus of trunk; Translations: [Melanocytic nevi of trunk] 08-24-2024 Episodic Other connective tissue disease (8 sources) Pain in right foot; Translations: [Pain in right foot] 09-08-2024 Episodic Other diseases of bladder and urethra (2 sources) Detrusor overactivity; Translations: [Overactive bladder] Onset: 08-08-2024 Chronic Other diseases of bladder and urethra (5 sources) Overactive bladder 08-08-2024 Chronic Other diseases of kidney and ureters (1 source) Urinary tract obstruction; Translations: [Other obstructive and reflux uropathy] Onset: 09-25-2024 Episodic Other gastrointestinal disorders (16 sources) Chronic constipation with overflow 08-28-2020 Episodic Other gastrointestinal disorders (4 sources) Other fecal abnormalities; Translations: [OTHER FECAL ABNORMALITIES] Onset: 02-27-2023 Episodic Other gastrointestinal disorders (15 sources) Urgent desire for stool; Translations: [Fecal urgency] Onset: 04-13-2023 Episodic Other gastrointestinal disorders (2 sources) Abnormal feces; Translations: [Other fecal abnormalities] Onset: 04-13-2023 Episodic Other gastrointestinal disorders (13 sources) Loose stool 04-13-2023 Episodic Other gastrointestinal disorders (11 sources) Abdominal wind pain; Translations: [Gas pain] Onset: 06-10-2023 Episodic Other gastrointestinal disorders (2 sources) Constipation, unspecified; Translations: [Constipation, unspecified] Onset: 10-01-2023 Episodic Other gastrointestinal disorders (8 sources) Constipation 10-01-2023 Episodic Other hereditary and degenerative nervous system conditions (20 sources) Essential tremor; Translations: [Essential tremor] Onset: 01-07-2024 01-07-2024 Chronic Other male genital disorders (7 sources) Acquired buried penis; 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] Onset: 08-08-2024 Chronic Other nervous system disorders (19 sources) Polyneuropathy; Translations: [Polyneuropathy, unspecified] Onset: 01-07-2024 [...] UNSPECIFIED] Onset: 08-27-2022 Chronic Residual codes; unclassified (19 sources) Obstructive sleep apnea syndrome; Translations: [Obstructive sleep apnea (adult) (pediatric)] Onset: 01-11-2024 01-11-2024 Chronic Residual codes; unclassified (7 sources) Family history of malignant neoplasm of digestive organ; Translations: [Family history of malignant neoplasm of digestive organs] Onset: 03-31-2022 Episodic Residual codes; unclassified (16 sources) Family history of cancer of colon 03-31-2022 Episodic Unclassified (4 sources) CHRN KIDNEY DISEASE STG 3 UNSP; Translations: [CHRN KIDNEY DISEASE STG 3 UNSP] Onset: 08-27-2022 Unclassified (3 sources) CONTACT W/AND (SUSP) EXPOS COVID-19; Translations: [CONTACT W/AND (SUSP) EXPOS COVID-19] Onset: 06-19-2022 Unclassified (1 source) COUGH, UNSPECIFIED; Translations: [COUGH, UNSPECIFIED] Onset: 06-19-2022 Unclassified (8 sources) Finding of sensation of abdomen 10-01-2023 Unclassified (2 sources) Longstanding persistent atrial fibrillation; Translations: [Longstanding persistent atrial fibrillation] Onset: 03-03-2024 Unclassified (1 source) Other pericardial effusion (noninflammatory); Translations: [Other pericardial effusion (noninflammatory)] Onset: 10-05-2022 Unclassified (5 sources) Drug therapy finding 08-08-2024 Viral infection (8 sources) Verruca plantaris; Translations: [Plantar wart] 09-08-2024 [...] Onset: 04-30-2022 Episodic Other aftercare (1 source) rodent 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 (current) use of aspirin; Translations: [NURSING HOME CURRENT USE OF ASPIRIN] Onset: 08-27-2022 Episodic Other aftercare (1 source) rodent 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 (current) use of anticoagulants; Translations: [NURSING HOME CURRNT USE ANTICOAGULANTS] Onset: 08-27-2022 Episodic Other aftercare (1 source) Other truck terminal manager (current) drug therapy; Translations: [OTH ELECTRICIAN MAINTENANCE CURRENT DRUG THERAPY] Onset: 08-27-2022 Episodic Other circulatory disease (1 source) Other specified symptoms and signs involving the circulatory and respiratory systems; Translations: [OTH SPEC SX SIGNS INVLV CIRC RS] Onset: 06-19-2022 Episodic Other connective tissue disease (19 sources) Spasm of cervical paraspinous muscle; Translations: [Other muscle spasm] Onset: 01-07-2024 01-07-2024 Episodic Other connective tissue disease (20 sources) Neurogenic pain; Translations: [Neuralgia and neuritis, unspecified] Onset: 01-07-2024 01-07-2024 Episodic Other connective tissue disease (2 sources) Pain of toes of bilateral feet; Translations: [Pain in right toe(s)] 07-06-2024 Episodic Other skin disorders (6 sources) Asteatosis cutis; Translations: [Xerosis cutis] 07-06-2024 Episodic Residual codes; unclassified (6 sources) Localized edema; Translations: [LOCALIZED EDEMA] Onset: 11-02-2022 Episodic Residual codes; unclassified (1 source) Edema, unspecified; Translations: [EDEMA UNSPECIFIED] Onset: 08-27-2022 Episodic Unclassified (19 sources) Parkinson's disease; Translations: [Parkinson disease] Onset: [...] Interpretation Reference Range Facility Ambulatory Visit Summaryon 01-07-2024 Ambulatory Visit Summary Ambulatory Visit Summary NADIR BETH :1940 Visit Date:11/06/2024 Ambulatory Visit Instructions Your Care Team Attending Physician - Mejia SINGH MD Primary Care Physician - Van Youssef MD This Is Your Medications List NIFEdipine acetaminophen-hydrocod one ([place] 325 mg-5 mg oral tablet) acyclovir apixaban [...] MARQUIS LOUISE MD Where: [facility] [address], [address] [place] [address]- Medications What How Much When Why Instructions Unchanged acetaminophen-hydrocod one ([place] 325 mg-5 mg oral tablet) 1 Tablets [...] (Unknown) Nitroglycerin Patch (Unknown) aminolevulinic acid (Unknown) simvastatin (elevated liver enzymes) statins (Unknown) Problems Ongoing - Any problem that you are currently receiving treatment for. Abdominal cramping Acquired buried penis Anticoagulated Asthma Balanitis BPH with urinary obstruction Chronic constipation with overflow Colon polyps Constipation Diabetes Diverticulosis Family history of colon cancer Fecal urgency Gas pain Gross hematuria Hemorrhoids History of colon polyps Incomplete bladder emptying Nausea OAB (overactive bladder) Historical - Any problem that you are no longer receiving treatment for. Loose stools Patient Survey You may receive a survey v (more content not included)... Normal [facility] Ambulatory Visit Summaryon 1 01-03-2024 Ambulatory Visit Summary Ambulatory Visit Summary NADIR BETH :1940 Visit Date:11/02/2024 Ambulatory Visit Instructions Your Diagnosis BPH with urinary obstruction Gross hematuria Incomplete bladder emptying OAB (overactive bladder) Acquired buried penis Balanitis Anticoagulated Your Care Team Attending Physician - ADRIAN GUSTAFSON, MARQUIS Primary Care Physician - Van Youssef MD This Is Your Medications List acetaminophen-hydrocod one ([place] 325 mg-5 mg oral tablet) ciprofloxacin (Cipro 500 mg Tab) diazepam (Valium 10 mg Tab) Contact prescribing physician if questions [...] repair, Tonsillectomy. Discharge Vitals Heart Rate (Peripheral) 65 Blood Pressure 102/67 Height 185 cm Height 73 in Weight 91 kg Weight 200.62 lb BMI 26.59 What to do next Scheduled Follow-Up Appointments Wednesday 9:00 AM EST With: Where: [facility] [place] [address] [place] [address]- Wednesday 8:40 AM EST With: MARQUIS LOUISE MD Where: [facility] [place] [address], [address] [place] [address]- You Need to Schedule the Following Appointments Follow Up with ADRIAN GUSTAFSON, ADAN CHO When: Where: Medications What How Much When Why Instructions Unchanged acetaminophen-hydrocod one ([place] 325 mg-5 mg oral tablet) 1 Tablets By Mouth Every 6 hours Take q6hrs as needed for pain. Unchanged ciprofloxacin (Cipro 500 mg Tab) 1 Tablets By Mouth 2 times a day Start 1 day prior to procedure. Unchanged diazepam (Valium 10 mg Tab) 1 Tablets By Mouth Once take one hour prior to the procedure. Unchanged acyclovir 400 Milligram By Mouth 2 [...] day Contact prescribing physician if questions or co (more content not included)... Normal [facility] Urology Office/Clinic Noteon 11-02-2024 Urology Office/Clinic Note Urology Office/Clinic Note Chief Complaint er f/u HPI Staff 84 year old male here for [facility] ER F/U, difficulty urinating. Bladder scan showed approximately 800 cc of urine. Palomares was placed Previous DX: BPH w/LUTS, incomplete bladder emptying, balanitis, acquired buried penis, OAB and anticoagulated S/P UroLift 10/23/24 and Cysto/TRUS 09/25/24 Pt presents with daughter and . Currently on cefdinr. No noticeable blood in cath since leaving the hospital. Denies any pain or burning. History of Present Illness Tests reviewed: reviewed ER records. I have reviewed the previous health [...] See HPI. Physical Exam Vitals & Measurements HR: 65(Peripheral) BP: 102/67 HT: 73 in HT: 185 cm WT: 91 kg WT: 200.62 lb BMI: 26.59 General Appearance: alert, no distress, well nourished, well developed male. Assessment/Plan Prior KEITH 2. Pt accompanied by and daughter today. Portions of this record may have been created with voice recognition artificial intelligence software, specifically [employer], [employer] and or [employer]. Substitutions may have occurred due to the inherent limitations of voice recognition and artificial intelligence software. 1. BPH with urinary obstruction (N40.1: Benign prostatic hyperplasia with lower urinary tract symptoms) PSA: 01/13/19 - 3.43 03/17/24 - 2.6 & 32.3% LATRELL 08/08/24: ~ 60g, no nodules, no bogginess. S/p cysto/TRUS for sizing 09/25/24 - 4 cm prostatic urethral length with bilobar hypertrophy kissing lobes and a small protuberant median lobe. Moderate trabeculations with no bladder stone or tumors noted. Prostate volume 64.1 cc. S/p UroLift 6 implants 10/23/24. Palomares placed. Palomares removed 10/25/24. Pt's daughter called 10/23/24 stating pt had blood coming out of his penis. Pt presented to [facility] ER 10/28/24 due to clot retention. Seen in consult by Dr. Singh. 24 Fr three-way palomares placed. CBI initiated. Prior IPSS 23. Taking Flomax 0.4mg qd which he has been on for years. Still has Palomares in place. Urine is clear. Denies issues since being discharged from the hospital 10/31. On Cefdinir. Pt is now ambulating with a walker. Daughter reports pt is weak due to being in the hospital. Also mentions he has bouts of confusion. Discussed the appropriate timing of Palomares removal. Recommended leaving Palomares in place until Wednesday. Pt agrees with plan. -Nurse visit 11/06 for Palomares removal 2. Gross hematuria (R31.0: Gross hematuria) See #1. 3. Incomplete bladder emptying (R33.9: Retention of urine, unspecified) PVR: 08/08/24 - 472 cc Has Palomares. See #1. 4. OAB (overactive bladder) (N32.81: Overactive bladder) See #1 and 2. Likely exacerbated by incomplete emptying and Lasix. -Dm control 5. 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 -Behavioral modifications 6. 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) Pt presented to [facility] ER 08/06/24 with redness on the [...] position of glans penis. -Cont symptomatic monitoring 7. 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 Hx of cardioversion. Increased risk for bleeding. Elevated risk for periop complications. Patient underwent a UroLift procedure approximately a week and a half ago. Unfortunately, he developed gross hematuria with clot retention that required hand irrigation with a three-way Palomares catheter. He presents today for an (more content not included)... Normal [facility] Comment on above: Result Comment: Elec tronically Signed By: MARQUIS LOUISE MD\.br\Date and Time Signed: 11/02/24 08:40 EST\.br\Electronically Co-Signed By: Roxy Gatica\.br\Date and Time Co-Signed: 11/02/24 08:27 EST\.br\Electronically Co-Signed By: Roxy Gatica\.br\Date and Time Co-Signed: 11/02/24 08:29 EST Ambulatory Visit Summaryon 1 12-26-2023 Ambulatory Visit Summary Ambulatory Visit Summary NADIR BETH Joy :1940 Visit Date:10/25/2024 Ambulatory Visit Instructions Your Care Team Attending Physician - MARQUIS LOUISE MD Primary Care Physician - Van Youssef MD Referring Physician - MARQUIS LOUISE MD This Is Your Medications List NIFEdipine acetaminophen-hydrocod one ([place] 325 mg-5 mg oral tablet) acyclovir apixaban [...] MARQUIS LOUISE MD Where: [facility] [address], [address] [place] [address]- Medications What How Much When Why Instructions Unchanged acetaminophen-hydrocod one ([place] 325 mg-5 mg oral tablet) 1 Tablets [...] emptying Naus (more content not included)... Normal [facility] Inpatient Patient Summaryon 10-23-2024 Inpatient Patient Summary Inpatient Patient Summary [address] [address] Clinical Summary Person Information Name: NADIR BETH Age: 84 Years : 1940 Sex: Male PCP: Van Youssef MD Marital Status: Race: White Ethnicity: Non- or Language: Maldivian Visit Id: Visit Reason: BPH WITH URINARY OBSTRUCTION, INCOMPLETE BLADDER EMPTYING Speciality: Acuity: Enc Type: Outpatient Med Service: Surgery Arrival: 10/23/2024 13:48:15 Discharge: Dispo Type: Address: [address] [place] [phone] Provider Notes: Diagnosis: Problems Active BPH with [...] This Visit Final Med List: acetaminophen-hydrocod one ([place] 325 mg-5 mg oral tablet) 1 Tablets [...] Hyperplasia Normal [facility] Main OR Intraoperative Recor don 10-23-2024 Main OR Intraoperative Record Main OR Intraoperative Record IntraOp Document Type FTURO Summary Primary Physician: MARQUIS LOUISE MD Finalized Date/Time: 10/23/24 15:03:19 Pt. Name: ZOEYMiroslavaNADIR DUVALL/Sex: 1940 Male Med Rec #: [id number] Physician: MARQUIS LOUISE MD Financial #: [id number] Pt. Type: O Room/Bed: / Admit/Disch: 10/23/24 [...] 3 Case Attendee ADRIAN GUSTAFSON, Oliva Goel [facility], Ana CHO Role Performed Surgeon - Primary Global Climate Change Analyst - Primary Scrub - Primary Time In [...] WITH UROLIFT Primary Procedure Yes Primary Surgeon ADRIAN GUSTAFSON, MARQUIS Start 10/23/24 14:20:00 Stop 10/23/24 14:38:00 Anesthesia [...] Implant Implant Identification Description UROLIFT Lot Number [id number] Plaster Mixer UROLIFT Catalog ???# [id number] Expiration Date 11/30/25 [...] Oliva Goel (more content not included)... Normal [facility] Main OR Preoperative Recordo n 10-23-2024 Main OR Preoperative Record Main OR Preoperative Record Holding Area Document Type FTURO Summary Primary Physician: MARQUIS LOUISE MD Finalized Date/Time: 10/23/24 14:17:30 Pt. Name: NADIR BETH /Sex: 1940 Male Med Rec #: [id number] Physician: MARQUIS LOUISE MD Financial #: [id number] Pt. Type: O Room/Bed: / Admit/Disch: 10/23/24 [...] Complaints of Pain: No Skin Integrity Intact, Spiro, Warm, & Dry Vitals - EU Blood Pressure 152/78 Pulse 84 bpm Respirations 18 br/min SPO2 90 % Additional None RN Reviewed Yes Specimens Collected Last Modified By: Oliva Goel 10/23/24 14:17:29 Finalized By: Oliva Goel Document Signatures Signed By: Preeti Kaur LPN 10/23/24 14:05 Oliva Goel 10/23/24 14:17 Normal [facility] Operative Reporton Operative Report Operative Report Patient: [...] urethral meatus. We then placed the 20 Luxembourgish cystoscope into the bladder. Bilobar hyperplasia was [...] able to easily navigate with a 20 Luxembourgish scope. Scope was then removed and an 18 Luxembourgish Palomares catheter was placed with return of light pink urine and no clots noted. This concluded the procedure. Patient was then transferred to PACU in stable condition. PLAN: Patient will follow-up in 2 days for Palomares catheter removal. 10 cc in the balloon Follow-up in 6 to 8 weeks with IPSS at that time Normal [facility] Comment on above: Result Comment: Elec tronically Signed By: MARQUIS LOUISE MD\.br\Date and Time Signed: 10/23/24 15:06 EST Outpatient Surgery Discharge Instructionon 10-23-2024 Outpatient Surgery Discharge Instruction Outpatient Surgery Discharge Instruction [place] [id number] Patient Discharge Instructions PERSON INFORMATION Name: RANADIR HORN Date of : 1940 Current Date: 10/23/2024 [...] amount of (more content not included)... Normal [facility] Ambulatory Visit Summaryon 1 12-02-2023 Ambulatory Visit Summary Ambulatory Visit Summary NADIR BETH :1940 Visit Date:10/02/2024 Ambulatory Visit Instructions Your Diagnosis BPH with urinary obstruction Incomplete bladder emptying Balanitis Acquired buried penis OAB (overactive bladder) Anticoagulated Your Care Team Attending Physician - ADRIAN GUSTAFSON, MARQUIS Primary Care Physician - Van Youssef MD Referring Physician - MARQUIS LOUISE MD This Is Your Medications List NIFEdipine [...] Follow-Up Appointments Wednesday 11:00 AM EST Where: [facility] Wednesday 3:00 PM EST Where: [facility] You Need to Schedule [...] included)... Normal [facility] Ambulatory Visit Summary Ambulatory Visit Summary NADIR [...] us for (more content not included)... Normal [facility] Urology Office/Clinic Noteon 10-02-2024 Urology Office/Clinic Note [...] with voice recognition artificial intelligence software, specifically [employer], [employer] and or [employer]. Substitutions may have occurred due to the [...] -Cipro 500mg bid start the day prior, [place] 325-5mg #2 q6hrs as needed for pain, [...] 3. 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) Pt presented to [facility] ER 08/06/24 with redness on the [...] and Lasix. -Dm control 6. 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 Hx of cardioversion. Elevated risk for periop complications. Based on patient's age, multiple medical comorbidities and his prostate size we discussed extensively that he will benefit most likely from a UroLift procedure. He is amenable to (more content not included)... Normal [facility] Comment on above: Result Comment: Elec tronically Signed By: MARQUIS LOUISE MD\.br\Date and Time Signed: 10/02/24 11:43 EST\.br\Electronically Co-Signed By: Roxy Gatica\.br\Date and Time Co-Signed: 10/02/24 11:21 EST\.br\Electronically Co-Signed By: Roxy Gatica\.br\Date and Time Co-Signed: 10/02/24 11:22 EST\.br\Electronically Co-Signed By: Roxy Gatica\.br\Date and Time Co-Signed: 10/02/24 11:23 EST Inpatient Patient Summaryon 09-25-2024 Inpatient Patient Summary Inpatient Patient Summary [address] [address] Clinical Summary Person Information Name: NADIR BETH Age: 84 Years : 1940 Sex: Male PCP: Van Youssef MD Marital Status: Race: White Ethnicity: Non- or Language: Maldivian Visit Id: Visit Reason: ENLARGED PROSTATE WITH URINARY OBSTRUCTION, INCOMPLETE BLADDER EMPTYING Speciality: Acuity: Enc Type: Outpatient Med Service: Surgery Arrival: 09/25/2024 11:42:27 Discharge: Dispo Type: Address: [address] [place] [address] [phone] Provider Notes: Diagnosis: Problems Active BPH with [...] With: Address: When: MARQUIS LOUISE [address] [place] [address] [phone] Business (1) Comments: Follow-up in the office in 2 weeks to discuss next plan With: Address: When: MARQUIS LOUISE [address] [place] [address] [phone] Business (1) Patient Education Information: Benign Prostatic Hyperplasia Normal [facility] Main OR Intraoperative Recor don 09-25-2024 Main OR Intraoperative Record Main OR Intraoperative Record IntraOp Document Type FTURO Summary Primary Physician: MARQUIS LOUISE MD Finalized Date/Time: 09/25/24 13:23:58 Pt. Name: KIRITNADIR/Sex: 1940 Male Med Rec #: [id number] Physician: MARQUIS LOUISE MD Financial #: [id number] Pt. Type: O Room/Bed: / Admit/Disch: 09/25/24 [...] C KWABENA Role Performed Surgeon - Primary Global Climate Change Analyst - Primary Scrub - Primary Time In [...] Goel 09/25/24 13:23 Oliva Goel 09/25/24 13:23 [facility] Main OR Preoperative Recordo n 09-25-2024 Main OR Preoperative Record Main OR Preoperative Record Holding Area Document Type FTURO Summary Primary Physician: MARQUIS LOUISE MD Finalized Date/Time: 09/25/24 13:04:51 Pt. Name: NADIR BETH/Sex: 1940 Male Med Rec #: [id number] Physician: MARQUIS LOUISE MD Financial #: [id number] Pt. Type: O Room/Bed: / Admit/Disch: 09/25/24 [...] Complaints of Pain: No Skin Integrity Intact, Spiro, Warm, & Dry Vitals - EU Blood Pressure Pulse Respirations SPO2 Additional None RN Reviewed Yes Specimens Collected Last Modified By: Oliva Goel 09/25/24 13:04:50 Finalized By: Oliva Goel Document Signatures Signed By: Preeti Kaur LPN 09/25/24 12:49 Oliva Goel 09/25/24 13:04 Normal [facility] Operative Reporton 4 Operative Report Operative Report Patient: NADIR BETH Age: 84 years Sex: Male : 1940 Associated Diagnoses: None Author: ADRIAN GUSTAFSON, MARQUIS Procedure Indication for procedure: Patient is a [...] steps Impression and Plan Counseled: Family. Normal [facility] Comment on above: Result Comment: Elec tronically Signed By: MARQUIS LOUISE MD\.br\Date and Time Signed: 09/25/24 13:27 EST Outpatient Surgery Discharge Instructionon 09-25-2024 Outpatient Surgery Discharge Instruction Outpatient Surgery Discharge Instruction [place] [id number] Patient Discharge Instructions PERSON INFORMATION Name: NADIR [...] 911 Follow up: With: Address: When: MARQUIS LOUISE [address] [place] [address] [phone] [employer] (1) Comments: Follow-up in the office in 2 weeks to discuss next plan With: Address: When: MARQUIS LOUISE [address] [place] [address] [phone] Business (1) Comment: PATIENT EDUCATION INFORMATION Instructions: Benign [...] included)... Normal [facility] No Panel Informationon 08-24 [facility] Ambulatory Visit Summaryon 0 08-08-2024 Ambulatory Visit [...] included)... Normal [facility] Urology Office/Clinic Noteon 08-08-2024 Urology Office/Clinic Note Urology Office/Clinic Note Chief Complaint follow up to [facility] ER HPI Staff 84 year old male new patient follow up to [facility] 08/06/24 presented due to redness on [...] require treatment. Family hx of colon CA. EKITH 3. Not a priority. PSA: 01/13/19 - 3.43 03/17/24 - 2.6 & 32.3% 1. 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) Pt presented to [facility] ER 08/06/24 with redness on the [...] included)... Normal [facility] Comment on above: Result Comment: Elec tronically Signed By: MARQUIS LOUISE MD\.br\Date and Time Signed: 08/08/24 11:05 EDT\.br\Electronically Co-Signed By: Roxy Gatica\.br\Date and Time Co-Signed: 08/08/24 10:46 EDT\.br\Electronically Co-Signed By: Roxy Gatica\.br\Date and Time Co-Signed: 08/08/24 10:53 EDT Office Visiton 07-05-2024 Follow-up visit [id number] Nadir Beth 1940 M Date Provider Department Center 07/05/2024 RUTHIE OWEN [facility] NEPHRO Comprehensiv Family History Problem Relation Age of Onset Coronary artery disease Father Family Status - Relation Status Age at Father Level of Service:08881 [place] OFFICE/OUTPATIENT ESTABLISHED MOD MDM 30 MIN Reason for Visit and Comments: Follow-up [[id number]] [facility] 3606-20-2024 36 Regarding echo resul t from 06/09/2024: [...] her he should have another echo at [facility] in Oct 2024, prior to his follow up with Dr. Cisneros in Nov 2024. She verbalized understanding. Echo order faxed to [facility]. [facility] 3606-14-2024 36 Patients called and stating that dr. Linda told her to call and let him know that her husbands blood pressure is better and she would like a call back. [facility] 36on 06-09-2024 36 Spoke with patient's Kervin and made sure she understood to increase labetalol per Dr. Linda. She also understands not to resume hydralazine. [facility] 36on 06-07-2024 36 I'm Stephanie from Dr. Cisneros's office with Cardiology. Patient's daughter called and wanted to know if Dr. Linda had restarted patient's hydralazine- NOT hydroxyzine. I don't see in the note that it was restarted. Dr. Linda, or someone from his office- can you clarify this for me? Thanks so much. [facility] Follow-Upon 06-07-2024 Follow-Up [id number] gonzalodonatonathanielNadir Joy 1940 M Date Provider Department Center 06/07/2024 Salvador-RUTHIE LINDA [facility]PHRO Comprehensiv Family History Problem Relation Age of Onset Coronary artery disease Father Family Status - Relation Status Age at Father Level of Service:88986 [place] OFFICE/OUTPATIENT ESTABLISHED MOD MDM 30 MIN () Reason for Visit and Comments: Follow-up [[id number]] [facility] Telephoneon 06-07-2024 Telephone [id number] HakeemnereidaBunnyNadir L 1940 M Date Provider Department Center 06/07/2024 IRIS FRANZ [facility]PHRO Comprehensiv Family History Problem Relation Age of Onset Coronary artery disease Father Family Status - Relation Status Age at Father [facility] Office Visiton 06-05-2024 Follow-up visit [id number] rileyBunnyNadir L 1940 M Date Provider Department Center 06/05/2024 CLARIBEL VILLALOBOS MILKA Beckett Family History Problem Relation Age of Onset Coronary artery disease Father Family Status - Relation Status Age at Father Level of Service:89154 [place] OFFICE/OUTPATIENT ESTABLISHED MOD MDM 30 MIN [facility] 36on 05-17-2024 36 Faxed lab orders 05/17/24 [facility] 3605-15-2024 36 Patient states that he needs his blood work to go to [facility] before his appointment on 05/31/24. [facility] 05-10-2024 36 LM on VM for patient or his to return my call. [facility] 05-08-2024 36 Patient's bucio lidia with concerns of elevated BP since hydralazine was stopped at last apt. She said sometimes it's very good - 110/60's and sometimes 152/70. He's scheduled to see you in a few weeks. Did you want to change anything? Please advise. Thanks. [facility] 04-04-2024 36 Regarding blood work from 04/03/2024: MD Stephanie Kelley MA Stable renal function. Continue same treatment and follow-up as planned. Patient's made aware. [facility] Orders Onlyon 03-21-2024 Orders Only [id number] Nadir Beth 1940 M Date Provider Department Center 03/21/2024 LUCRETIA BENZ MILKA Beckett Family History Problem Relation Age of Onset Coronary artery disease Father Family Status - Relation Status Age at Father [facility] Office Visiton 03-03-2024 Follow-up visit [id number] Nadir Beth 1940 M Date Provider Department Center 03/03/2024 CLARIBEL VILLALOBOS Family History Problem Relation Age of Onset Coronary artery disease Father Family Status - Relation Status Age at Father Level of Service:66796 [place] OFFICE/OUTPATIENT ESTABLISHED MOD MDM 30 MIN Reason for Visit and Comments: Follow-up [[id number]] [facility] 12-29-2023 36 Called and spoke wit h patient and rescheduled patients appointment from 05/31 to 06/07. [facility] 3612-28-2023 36 Called patient lvm t o contact the office back to reschedule appointment. [facility] Follow-Upon 11-17-2023 Follow-Up [id number] Nadir Beth 1940 M Date Provider Department Center 11/17/2023 RUTHIE OWEN [facility]RO Comprehensiv Family History Problem Relation Age of Onset Coronary artery disease Father Family Status - Relation Status Age at Father Level of Service:30676 [place] OFFICE/OUTPATIENT ESTABLISHED MOD MDM 30 MIN () Reason for Visit and Comments: Follow-up [963912] Chronic Kidney Disease [176] [facility] 36on 10-12-2023 36 Patient called to wander maynard aware that he was in [facility] ED on (Wednesday) for SOB. He wanted you to look over his records. I have uploaded them all into his digital media planner for your review. His BNP is increased to 4000 and was previously 2600 about 1 month ago. Looks like they gave him extra lasix in the ED and recommended he follow up with Dr. Youssef outpatient. Can you please review and let me know if you'd like anything done/ordered? Thanks. [facility] 36on 09-20-2023 36 Called and spoke wit h and rescheduled appointment and informed her patient would need to get labs done. [facility] 36 Patients called in to reschedule appointment from 09/08 [facility] Office Visiton 09-17-2023 Follow-up visit [id number] Nadir Beth 1940 M Date Provider Department Center 09/17/2023 CLARIBEL VILLALOBOS [facility] Family History Problem Relation Age of Onset Coronary artery disease Father Family Status - Relation Status Age at Father Level of Service:58203 [place] OFFICE/OUTPATIENT ESTABLISHED MOD MDM 30-39 MIN Reason for Visit and Comments: Follow-up [[id number]] [facility] HPon 08-31-2023 [facility] Cardiology [facility] Subjective Nadir Beth is a 83 y.o. year old male patient being seen for Follow-up Patient Active Problem List Diagnosis Aortic valve disorder Atherosclerosis of renal artery (CMS/HCC) Chronic atrial fibrillation (CMS/HCC) Coronary arteriosclerosis Bradycardia Aortic valve stenosis Type 1 diabetes mellitus (CMS/HCC) Type 2 diabetes mellitus with stage 3 chronic kidney disease, without long-term current use of insulin ([facility]) Stage 3 chronic kidney disease ([facility]/HCC) Sleep apnea Pulmonary edema Primary hypertension Dyspnea Edema of extremities Acute on chronic diastolic heart failure ([facility]/HCC) 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 disease ([facility]/HCC) Pericardial effusion Chronic constipation with overflow Colon [...] extremity edema. He was admitted to the [facility] in August 2022 due to hyponatremia, hyperkalemia and acute kidney injury, leukocytosis secondary to COVID-19 causing dehydration. I saw him on 05/24/2023 and the office and he had significant evidence of volume overload by exam and echocardiogram. I intensified his diuretic regimen. He ended up getting admitted to the [facility] with acute heart failure exacerbation and [...] Allergies Allergen Reactions Iodinated Contrast Media Nitroglycerin Tsoqqck-Tsu-Egp Reductase Inhibitors Medications Current Outpatient Medications: acyclovir [...] 1 ta (more content not included)... Normal [facility] NURSNOTEon 08-31-2023 NURSNOTE Pt performed and passed bedside swallow study. RN educated pt on d/c instructions. RN encouraged pt to voice any questions or concerns. Pt verbalizes no questions or concerns at this time. Pt was wheeled off of unit with all of belongings. Normal [facility] Telephoneon 08-24-2023 Telephone [id number] Nadir Beth 1940 M Date Provider Department Center 08/24/2023 PapiANA RABIA [facility] Family History Problem Relation Age of Onset Coronary artery disease Father Family Status - Relation Status Age at Father Normal [facility] Office Visiton 07-21-2023 Follow-up visit [id number] Nadir Beth 1940 M Date Provider Department Center 07/21/2023 CLARIBEL VILLALOBOS MILKA Beckett Family History Problem Relation Age of Onset Coronary artery disease Father Family Status - Relation Status Age at Father Level of Service:24975 [place] OFFICE/OUTPATIENT ESTABLISHED MOD [facility] 30-39 MIN Reason for Visit and Comments: Follow-up [940379] Normal [facility] [facility] OTHER TESTSOrdered By: Francisco Bolanos on [...] 37 mL/min/1.73 m2 Low >=59mL/min/1 .73 m2 [facility] Chem S Globulin (S) [Mass/Vol] [...] [Mass/Vol] 3.3 g/dL Critically low 3.4-5.0 [facility] Comment on above: Performed By: #### M ERICK Faith, PHOS #### [facility] [address] [address] [address] David Magana GLYCOHEMOGLOBIN A1Con 2022 ADA RECOMMENDATION SEE BELOW Normal [facility] Comment on above: Result Comment: ADA RECOMMENDED LIMIT 4.0 - 6.0 ADA THERAPEUTIC TARGET < 7.0 ACTION SUGGESTED > 7.0 Performed By: #### A 1C #### [facility] [address] [address] [address] David Magana Glucose [Mass/Vol] 108 mg/dL Normal [facility] Comment on above: Performed By: #### A 1C #### [facility] [address] [place] [address] Dr. David Magana HbA1c (Bld) [Mass fraction] 5.4 % Normal 4.5-6.2 [facility] Comment on above: Performed By: #### A 1C #### [facility] [address] [place] [address] Dr. David Magana PHOSPHORUSon 03-24-2023 Phosphate [Mass/Vol] 3.6 mg/dL Normal 2.6-4.7 [facility] Comment on above: Performed By: #### M ERICK Faith, PHOS #### [facility] [address] [place] [address] Dr. David Magana PROF CHEM 8 (BAS METB)on Anion gap [Moles/Vol] 11.6 mmol/L Normal [facility] Comment on above: Performed By: #### M Marcell BMP, PHOS #### [facility] [address] [place] [address] Dr. David Magana Calcium [Mass/Vol] 8.9 mg/dL Normal 8.5-10.1 [facility] Comment on above: Performed By: #### M Marcell BMP, PHOS #### [facility] [address] [place] [address] Dr. David Magana Chloride [Moles/Vol] 107 mmol/L Normal 98-107 [facility] Comment on above: Performed By: #### M G, BMP, PHOS #### [facility] [address] [address] [address] David Magana CO2 [Moles/Vol] 30.8 mmol/L Normal 21.0-32.0 [facility] Comment on above: Performed By: #### M G, BMP, PHOS #### [facility] [address] [place] [address] Dr. David Magana Creatinine [Mass/Vol] 1.67 mg/dL Critically high 0.70-1.30 [facility] Comment on above: Performed By: #### M G, BMP, PHOS #### [facility] [address] [place] [address] Dr. David Magana EGFR-AF SIERRA LEONEAN 48 mL/min/1.73m2 Critically low >=60 [facility] Comment on above: Performed By: #### M Marcell BMP, PHOS #### [facility] [address] [place] [address] Dr. David Magana EGFR-NON AF SIERRA LEONEAN 39 mL/min/1.73m2 Critically low >=60 [facility] Comment on above: Performed By: #### M Marcell BMP, PHOS #### [facility] [address] [place] [address] Dr. David Magana Glucose [Mass/Vol] 128 mg/dL Critically high 74-106 [facility] Comment on above: Performed By: #### M Marcell BMP, PHOS #### [facility] [address] [place] [address] Dr. David Magana Potassium [Moles/Vol] 4.4 mmol/L Normal 3.5-5.1 [facility] Comment on above: Performed By: #### M G, BMP, PHOS #### [facility] [address] [place] [address] Dr. David Magana Sodium [Moles/Vol] 145 mmol/L Normal 136-145 [facility] Comment on above: Performed By: #### M Marcell, BMP, PHOS #### [facility] [address] [place] [address] Dr. David Magana Urea nitrogen [Mass/Vol] 25.0 mg/dL Critically high 7.0-18.0 [facility] Comment on above: Performed By: #### ERICK Jacques, PHOS #### [facility] [address] [place] [address] Dr. David Magana Urea nitrogen/Creatinine [Mass ratio] 15.0 mg/mg Normal [facility] Comment on above: Performed By: #### ERICK Jacques, PHOS #### [facility] [address] [place] [address] Dr. David Magana VITAMIN D 25 OHon 03-24-2023 VIT D 25-OH 11.6 ng/mL Normal [facility] Comment on above: Performed By: #### C BC #### [facility] [address] [place] [address] Dr. David Magana VIT D RANGES SEE BELOW Normal [facility] Comment on above: Result Comment: <20 ng/mL Vit D deficient 20 - <30 ng/mL Vit D insufficient 30 - 100 ng/mL Vit D sufficient >100 ng/mL Potential Toxicity Performed By: #### C BC #### [facility] [address] [place] [address] Dr. Dvaid Magana CBC AUTO DIFFon 02-27-2023 BASO # 0.0 103/ul Normal 0.0-0.1 [facility] Comment on above: Performed By: #### ERICK Jacques, PHOS #### [facility] [address] [place] [address] Dr. David Magana Basophils/100 WBC (Bld) 0.5 % Normal 0.2-2.0 [facility] Comment on above: Performed By: #### ERICK Jacques, PHOS #### [facility] [address] [place] [address] Dr. David Magana EO # 0.7 103/ul Normal 0.0-0.7 [facility] Comment on above: Performed By: #### ERICK Jacques, PHOS #### [facility] [address] [place] [address] Dr. David Magana Eosinophils/100 WBC (Bld) 9.3 % Critically high 0.9-7.0 [facility] Comment on above: Performed By: #### ERICK Jacques, PHOS #### [facility] [address] [place] [address] Dr. David Magana Erythrocyte distribution width (RBC) [Ratio] 14.6 % Normal 11.0-15.0 [facility] Comment on above: Performed By: #### ERICK Jacques, PHOS #### [facility] [address] [place] [address] Dr. David Magana Hematocrit (Bld) [Volume fraction] 41.5 % Critically low 42.0-54.0 [facility] Comment on above: Performed By: #### ERICK Jacques, PHOS #### [facility] [address] [place] [address] Dr. David Magana Hemoglobin (Bld) [Mass/Vol] 13.9 g/dL Critically low 14.0-18.0 [facility] Comment on above: Performed By: #### ERICK Jacques, PHOS #### [facility] [address] [place] [address] Dr. David Magana IG # 0.02 10e3/ul Normal 0.00-0.03 [facility] Comment on above: Performed By: #### ERICK Jacques, PHOS #### [facility] [address] [place] [address] Dr. David Magana IG % 0.3 % Normal 0.0-0.5 [facility] Comment on above: Performed By: #### ERICK Jacques, PHOS #### [facility] [address] [place] [address] Dr. David Magana LYMPH # 1.0 103/ul Critically low 1.2-3.8 The [facility] Comment on above: Performed By: #### ERICK Jacques, PHOS #### [facility] [address] [place] [address] Dr. David Magana Lymphocytes/100 WBC (Bld) 13.0 % Critically low 20.5-60.0 [facility] Comment on above: Performed By: #### M G, BMP, PHOS #### [facility] [address] [place] [address] Dr. David Magana MANUAL DIFF REQ NO Normal [facility] Comment on above: Performed By: #### M G, BMP, PHOS #### [facility] [address] [place] [address] Dr. David Magana MCH (RBC) [Entitic mass] 33.5 pg Normal 25.9-34.0 [facility] Comment on above: Performed By: #### M G, BMP, PHOS #### [facility] [address] [place] [address] Dr. David Magana MCHC (RBC) [Mass/Vol] 33.5 g/dL Normal 29.9-35.2 [facility] Comment on above: Performed By: #### M Marcell BMP, PHOS #### [facility] [address] [place] [address] Dr. David Magana MCV (RBC) [Entitic vol] 100.0 fL Critically high 80.0-94.0 [facility] Comment on above: Performed By: #### M ERICK Faith, PHOS #### [facility] [address] [place] [address] Dr. David Magana MONO # 0.8 103/ul Normal 0.3-0.8 [facility] Comment on above: Performed By: #### M ERICK Faith, PHOS #### [facility] [address] [place] [address] Dr. David Magana Monocytes/100 WBC (Bld) 10.1 % Normal 1.7-12.0 [facility] Comment on above: Performed By: #### M Marcell BMP, PHOS #### [facility] [address] [place] [address] Dr. David Magana NEUT # 5.0 103/ul Normal 1.4-6.5 [facility] Comment on above: Performed By: #### M Marcell BMP, PHOS #### [facility] [address] [place] [address] Dr. David Magana Neutrophils/100 WBC (Bld) 66.8 % Normal 43.0-75.0 [facility] Comment on above: Performed By: #### ERICK Jacques, PHOS #### [facility] [address] [place] [address] Dr. David Magana Platelet mean volume (Bld) [Entitic vol] 11.2 fL Normal 9.5-13.5 [facility] Comment on above: Performed By: #### ERICK Jacques, PHOS #### [facility] [address] [address] [address] David Magana PLT 187 103/ul Normal 150-450 [facility] Comment on above: Performed By: #### ERICK Jacques, PHOS #### [facility] [address] [place] [address] Dr. David Magana RBC 4.15 106/ul Critically low 4.70-6.10 [facility] Comment on above: Performed By: #### ERICK Jacques, PHOS #### [facility] [address] [place] [address] Dr. David Magana WBC 7.5 103/ul Normal 4.0-11.0 [facility] Comment on above: Performed By: #### ERICK Jacques, PHOS #### [facility] [address] [place] [address] Dr. David Magana PROF 14(COMP METB)on 023 Albumin [Mass/Vol] 3.5 g/dL Normal 3.4-5.0 [facility] Comment on above: Performed By: #### A 1C #### [facility] [address] [place] [address] Dr. David Magana Albumin/Globulin [Mass ratio] 1.1 {ratio} Normal [facility] Comment on above: Performed By: #### A 1C #### [facility] [address] [place] [address] Dr. David Magana ALP [Catalytic activity/Vol] 76 U/L Normal 46-116 [facility] Comment on above: Performed By: #### A 1C #### [facility] [address] [address] [address] David Magana ALT [Catalytic activity/Vol] 23 U/L Normal 16-63 [facility] Comment on above: Performed By: #### A 1C #### [facility] [address] [address] [address] David Magana Anion gap [Moles/Vol] 13.1 mmol/L Normal [facility] Comment on above: Performed By: #### A 1C #### [facility] [address] [address] [address] David Magana AST [Catalytic activity/Vol] 17 U/L Normal 15-37 [facility] Comment on above: Performed By: #### A 1C #### [facility] [address] [place] [address] Dr. David Magana Bilirubin [Mass/Vol] 0.7 mg/dL Normal 0.2-1.0 [facility] Comment on above: Performed By: #### A 1C #### [facility] [address] [address] [address] David Magana Calcium [Mass/Vol] 9.0 mg/dL Normal 8.5-10.1 [facility] Comment on above: Performed By: #### A 1C #### [facility] [address] [place] [address] Dr. David Magnaa Chloride [Moles/Vol] 105 mmol/L Normal 98-107 [facility] Comment on above: Performed By: #### A 1C #### [facility] [address] [place] [address] Dr. David Magana CO2 [Moles/Vol] 29.0 mmol/L Normal 21.0-32.0 [facility] Comment on above: Performed By: #### A 1C #### [facility] [address] [address] [address] David Magana Creatinine [Mass/Vol] 1.77 mg/dL Critically high 0.70-1.30 [facility] Comment on above: Performed By: #### A 1C #### [facility] [address] [address] [address] David Magana EGFR-AF SIERRA LEONEAN 45 mL/min/1.73m2 Critically low >=60 [facility] Comment on above: Performed By: #### A 1C #### [facility] [address] [address] [address] David Magana EGFR-NON AF SIERRA LEONEAN 37 mL/min/1.73m2 Critically low >=60 [facility] Comment on above: Performed By: #### A 1C #### [facility] [address] [address] [address] David Magana Globulin (S) [Mass/Vol] 3.3 g/dL Normal [facility] Comment on above: Performed By: #### A 1C #### [facility] [address] [address] [address] David Magana Glucose [Mass/Vol] 135 mg/dL Critically high 74-106 [facility] Comment on above: Performed By: #### A 1C #### [facility] [address] [address] [address] David Magana Potassium [Moles/Vol] 4.1 mmol/L Normal 3.5-5.1 [facility] Comment on above: Performed By: #### A 1C #### [facility] [address] [place] [address] Dr. David Magana Protein [Mass/Vol] 6.8 g/dL Normal 6.4-8.2 [facility] Comment on above: Performed By: #### A 1C #### [facility] [address] [address] [address] David Magana Sodium [Moles/Vol] 143 mmol/L Normal 136-145 [facility] Comment on above: Performed By: #### A 1C #### [facility] [address] [address] [address] David Magana Urea nitrogen [Mass/Vol] 31.0 mg/dL Critically high 7.0-18.0 [facility] Comment on above: Performed By: #### A 1C #### [facility] [address] [address] [address] David Magana Urea nitrogen/Creatinine [Mass ratio] 17.5 mg/mg Normal [facility] Comment on above: Performed By: #### A 1C #### [facility] [address] [place] [address] Dr. David Magana PROTIMEon 02-27-2023 INR Coag (PPP) [Relative time] 0.99 {INR} Normal [facility] Comment on above: Performed By: #### A 1C #### [facility] [address] [place] [address] Dr. David Magana INR GUIDELINES SEE BELOW Normal [facility] Comment on above: Result Comment: IDANIA RED INR: 2.0 - 3.0 CONDITIONS NOT LISTED BELOW 2.5 - 3.5 FOR PROSTHETIC HEART VALVE REPLACEMENT 2.5 - 3.5 RECURRENT THROMBOSIS Performed By: #### A 1C #### [facility] [address] [place] [address] Dr. David Magana PT Coag (PPP) [Time] 10.5 s Normal 9.0-11.6 [facility] Comment on above: Performed By: #### A 1C #### [facility] [address] [place] [address] Dr. David Magana PTTon 02-27-2023 aPTT Coag (Bld) [Time] 33.0 s Normal 22.3-36.2 [facility] Comment on above: Performed By: #### P OCGLUC #### [facility] [address] [place] [address] Dr. David Magana ALBUMINon 12-28-2022 Albumin [Mass/Vol] 3.6 g/dL Normal 3.4-5.0 [facility] Comment on above: Performed By: #### C BC #### [facility] [address] [place] [address] Dr. David Magana GLYCOHEMOGLOBIN A1Con 2022 ADA RECOMMENDATION SEE BELOW Normal [facility] Comment on above: Result Comment: ADA RECOMMENDED LIMIT 4.0 - 6.0 ADA THERAPEUTIC TARGET < 7.0 ACTION SUGGESTED > 7.0 Performed By: #### P OCGLUC #### [facility] [address] [address] [address] David Magana Glucose [Mass/Vol] 140 mg/dL Normal [facility] Comment on above: Performed By: #### P OCGLUC #### [facility] [address] [address] [address] David Magana HbA1c (Bld) [Mass fraction] 6.5 % Critically high 4.5-6.2 [facility] Comment on above: Performed By: #### P OCGLUC #### [facility] [address] [address] [address] David Magana MAGNESIUMon 12-28-2022 Magnesium [Mass/Vol] 2.3 mg/dL Normal 1.8-2.4 [facility] Comment on above: Performed By: #### P OCGLUC #### [facility] [address] [place] [address] Dr. aDvid Magana PROF CHEM 8 (BAS METB)on Anion gap [Moles/Vol] 13.2 mmol/L Normal [facility] Comment on above: Performed By: #### P OCGLUC #### [facility] [address] [address] [address] David Magana Calcium [Mass/Vol] 9.0 mg/dL Normal 8.5-10.1 [facility] Comment on above: Performed By: #### P OCGLUC #### [facility] [address] [address] [address] David Magana Chloride [Moles/Vol] 105 mmol/L Normal 98-107 [facility] Comment on above: Performed By: #### P OCGLUC #### [facility] [address] [address] [address] David Magana CO2 [Moles/Vol] 28.9 mmol/L Normal 21.0-32.0 [facility] Comment on above: Performed By: #### P OCGLUC #### [facility] [address] [place] [address] Dr. David Magana Creatinine [Mass/Vol] 1.66 mg/dL Critically high 0.70-1.30 [facility] Comment on above: Performed By: #### P OCGLUC #### [facility] [address] [address] [address] David Magana EGFR-AF SIERRA LEONEAN 48 mL/min/1.73m2 Critically low >=60 [facility] Comment on above: Performed By: #### P OCGLUC #### [facility] [address] [address] [address] David Magana EGFR-NON AF SIERRA LEONEAN 40 mL/min/1.73m2 Critically low >=60 [facility] Comment on above: Performed By: #### P OCGLUC #### [facility] [address] [address] [address] David Magana Glucose [Mass/Vol] 123 mg/dL Critically high 74-106 [facility] Comment on above: Performed By: #### P OCGLUC #### [facility] [address] [address] [address] David Magana Potassium [Moles/Vol] 4.1 mmol/L Normal 3.5-5.1 [facility] Comment on above: Performed By: #### P OCGLUC #### [facility] [address] [address] [address] David Magana Sodium [Moles/Vol] 143 mmol/L Normal 136-145 [facility] Comment on above: Performed By: #### P OCGLUC #### [facility] [address] [address] [address] David Magana Urea nitrogen [Mass/Vol] 29.0 mg/dL Critically high 7.0-18.0 [facility] Comment on above: Performed By: #### P OCGLUC #### [facility] [address] [address] [address] David Magana Urea nitrogen/Creatinine [Mass ratio] 17.5 mg/mg Normal [facility] Comment on above: Performed By: #### P OCGLUC #### [facility] [address] [address] [address] David Magana URINE T PROTEIN CREAT RATIOo n 12-28-2022 UR TOTAL PROTEIN <6.0 Normal <=12.0 [facility] Comment on above: Performed By: #### M ERICK Faith, PHOS #### [facility] [address] [place] [address] Dr. David Magana URINE CREAT 41.21 mg/dL Normal 20.00-300.00 [facility] Comment on above: Performed By: #### M Marcell BMP, PHOS #### [facility] [address] [place] [address] Dr. David Magana ALBUMINon 11-16-2022 Albumin [Mass/Vol] 3.3 g/dL Critically low 3.4-5.0 Th [facility] Comment on above: Performed By: #### C BC #### [facility] [address] [place] [address] Dr. David Magana CREATININE URINEon URINE CREAT 19.69 mg/dL Critically low 20.00-300.00 [facility] Comment on above: Performed By: #### ERICK Jacques, PHOS #### [facility] [address] [place] [address] Dr. David Magana HEMOGLOBINon 11-16-2022 Hemoglobin (Bld) [Mass/Vol] 14.9 g/dL Normal 14.0-18.0 [facility] Comment on above: Performed By: #### ERICK Jacques, PHOS #### [facility] [address] [place] [address] Dr. David Magana MAGNESIUMon 11-16-2022 Magnesium [Mass/Vol] 2.2 mg/dL Normal 1.8-2.4 [facility] Comment on above: Performed By: #### C BC #### [facility] [address] [place] [address] Dr. David Magana PHOSPHORUSon 11-16-2022 Phosphate [Mass/Vol] 3.9 mg/dL Normal 2.6-4.7 [facility] Comment on above: Performed By: #### C BC #### [facility] [address] [place] [address] Dr. David Magana PROF CHEM 8 (BAS METB)on Anion gap [Moles/Vol] 11.9 mmol/L Normal [facility] Comment on above: Performed By: #### C BC #### [facility] [address] [address] [address] David Magana Calcium [Mass/Vol] 8.8 mg/dL Normal 8.5-10.1 [facility] Comment on above: Performed By: #### C BC #### [facility] [address] [address] [address] David Magana Chloride [Moles/Vol] 104 mmol/L Normal 98-107 [facility] Comment on above: Performed By: #### C BC #### [facility] [address] [place] [address] Dr. David Magana CO2 [Moles/Vol] 27.4 mmol/L Normal 21.0-32.0 [facility] Comment on above: Performed By: #### C BC #### [facility] [address] [address] [address] David Magana Creatinine [Mass/Vol] 1.68 mg/dL Critically high 0.70-1.30 [facility] Comment on above: Performed By: #### C BC #### [facility] [address] [place] [address] Dr. David Magana EGFR-AF SIERRA LEONEAN 48 mL/min/1.73m2 Critically low >=60 [facility] Comment on above: Performed By: #### C BC #### [facility] [address] [address] [address] David Magana EGFR-NON AF SIERRA LEONEAN 39 mL/min/1.73m2 Critically low >=60 [facility] Comment on above: Performed By: #### C BC #### [facility] [address] [address] [address] David Magana Glucose [Mass/Vol] 212 mg/dL Critically high 74-106 [facility] Comment on above: Performed By: #### C BC #### [facility] [address] [address] [address] David Magana Potassium [Moles/Vol] 4.3 mmol/L Normal 3.5-5.1 [facility] Comment on above: Performed By: #### C BC #### [facility] [address] [place] [address] Dr. David Magana Sodium [Moles/Vol] 139 mmol/L Normal 136-145 [facility] Comment on above: Performed By: #### C BC #### [facility] [address] [place] [address] Dr. David Magana Urea nitrogen [Mass/Vol] 25.0 mg/dL Critically high 7.0-18.0 [facility] Comment on above: Performed By: #### C BC #### [facility] [address] [place] [address] Dr. David Magana Urea nitrogen/Creatinine [Mass ratio] 14.9 mg/mg Normal [facility] Comment on above: Performed By: #### C BC #### [facility] [address] [place] [address] Dr. David Magana PROTEIN RAND URINEon 023 UR PROT <5.0 Normal <=11.9 [facility] Comment on above: Performed By: #### ERICK Jacques PHOS #### [facility] [address] [place] [address] Dr. David Magana US CHANI DOP LEG [...] by: CLOVER PEREZ Date: 2022-11-02 16:21 Normal [facility] BNPon 07-22-2022 Natriuretic peptide B (Bld) [Mass/Vol] 2143.0 pg/mL Critically high <=1,800.0 [facility] Comment on above: Performed By: #### M ERICK Faith PHOS #### [facility] [address] [address] [address] David Magana CBC AUTO DIFFon 07-22-2022 BASO # 0.0 103/ul Normal 0.0-0.1 [facility] Comment on above: Performed By: #### A 1C #### [facility] [address] [address] [address] David Magana Basophils/100 WBC (Bld) 0.3 % Normal 0.2-2.0 [facility] Comment on above: Performed By: #### A 1C #### [facility] [address] [address] [address] David Magana EO # 0.3 103/ul Normal 0.0-0.7 [facility] Comment on above: Performed By: #### A 1C #### [facility] [address] [address] [address] David Magana Eosinophils/100 WBC (Bld) 2.4 % Normal 0.9-7.0 [facility] Comment on above: Performed By: #### A 1C #### [facility] [address] [address] [address] David Magana Erythrocyte distribution width (RBC) [Ratio] 13.4 % Normal 11.0-15.0 [facility] Comment on above: Performed By: #### A 1C #### [facility] [address] [address] [address] David Magana Hematocrit (Bld) [Volume fraction] 42.7 % Normal 42.0-54.0 [facility] Comment on above: Performed By: #### A 1C #### [facility] [address] [address] [address] David Magana Hemoglobin (Bld) [Mass/Vol] 14.2 g/dL Normal 14.0-18.0 [facility] Comment on above: Performed By: #### A 1C #### [facility] [address] [address] [address] David Magana IG # 0.18 10e3/ul Critically high 0.00-0.03 [facility] Comment on above: Performed By: #### A 1C #### [facility] [address] [address] [address] David Magana IG % 1.6 % Critically high 0.0-0.5 [facility] Comment on above: Performed By: #### A 1C #### [facility] [address] [place] [address] Dr. David Magana LYMPH # 0.9 103/ul Critically low 1.2-3.8 [facility] Comment on above: Performed By: #### A 1C #### [facility] [address] [place] [address] Dr. David Magana Lymphocytes/100 WBC (Bld) 8.1 % Critically low 20.5-60.0 [facility] Comment on above: Performed By: #### A 1C #### [facility] [address] [place] [address] Dr. David Magana MANUAL DIFF REQ NO Normal [facility] Comment on above: Performed By: #### A 1C #### [facility] [address] [address] [address] David Magana MCH (RBC) [Entitic mass] 33.3 pg Normal 25.9-34.0 [facility] Comment on above: Performed By: #### A 1C #### [facility] [address] [place] [address] Dr. David Magana MCHC (RBC) [Mass/Vol] 33.3 g/dL Normal 29.9-35.2 [facility] Comment on above: Performed By: #### A 1C #### [facility] [address] [place] [address] Dr. David Magana MCV (RBC) [Entitic vol] 100.2 fL Critically high 80.0-94.0 [facility] Comment on above: Performed By: #### A 1C #### [facility] [address] [place] [address] Dr. David Magana MONO # 1.2 103/ul Critically high 0.3-0.8 [facility] Comment on above: Performed By: #### A 1C #### [facility] [address] [address] [address] David Magana Monocytes/100 WBC (Bld) 10.5 % Normal 1.7-12.0 [facility] Comment on above: Performed By: #### A 1C #### [facility] [address] [address] [address] David Magana NEUT # 8.9 103/ul Critically high 1.4-6.5 [facility] Comment on above: Performed By: #### A 1C #### [facility] [address] [address] [address] David Magana Neutrophils/100 WBC (Bld) 77.1 % Critically high 43.0-75.0 [facility] Comment on above: Performed By: #### A 1C #### [facility] [address] [place] [address] Dr. David Magana Platelet mean volume (Bld) [Entitic vol] 11.3 fL Normal 9.5-13.5 [facility] Comment on above: Performed By: #### A 1C #### [facility] [address] [address] [address] David Magana PLT 175 103/ul Normal 150-450 [facility] Comment on above: Performed By: #### A 1C #### [facility] [address] [place] [address] Dr. David Magana RBC 4.26 106/ul Critically low 4.70-6.10 [facility] Comment on above: Performed By: #### A 1C #### [facility] [address] [address] [address] David Magana WBC 11.5 103/ul Critically high 4.0-11.0 [facility] Comment on above: Performed By: #### A 1C #### [facility] [address] [place] [address] Dr. David Magana PROF 14(COMP METB)on 022 Albumin [Mass/Vol] 2.6 g/dL Critically low 3.4-5.0 [facility] Comment on above: Performed By: #### M G, BMP, PHOS #### [facility] [address] [address] [address] David Magana Albumin/Globulin [Mass ratio] 0.9 {ratio} Normal [facility] Comment on above: Performed By: #### M G, BMP, PHOS #### [facility] [address] [address] [address] David Magana ALP [Catalytic activity/Vol] 49 U/L Normal 46-116 [facility] Comment on above: Performed By: #### M G, BMP, PHOS #### [facility] [address] [address] [address] David Magana ALT [Catalytic activity/Vol] 25 U/L Normal 16-63 [facility] Comment on above: Performed By: #### M G, BMP, PHOS #### [facility] [address] [address] [address] David Magana Anion gap [Moles/Vol] 12.8 mmol/L Normal [facility] Comment on above: Performed By: #### M G, BMP, PHOS #### [facility] [address] [address] [address] David Magana AST [Catalytic activity/Vol] 9 U/L Critically low 15-37 [facility] Comment on above: Performed By: #### M G, BMP, PHOS #### [facility] [address] [address] [address] David Magana Bilirubin [Mass/Vol] 0.5 mg/dL Normal 0.2-1.0 [facility] Comment on above: Performed By: #### M G, BMP, PHOS #### [facility] [address] [address] [address] David Magana Calcium [Mass/Vol] 8.3 mg/dL Critically low 8.5-10.1 [facility] Comment on above: Performed By: #### M G, BMP, PHOS #### [facility] [address] [address] [address] David Magana Chloride [Moles/Vol] 105 mmol/L Normal 98-107 [facility] Comment on above: Performed By: #### ERICK Jacques, PHOS #### [facility] [address] [place] [address] Dr. David Magana CO2 [Moles/Vol] 24.2 mmol/L Normal 21.0-32.0 [facility] Comment on above: Performed By: #### ERICK Jacques, PHOS #### [facility] [address] [place] [address] Dr. David Magana Creatinine [Mass/Vol] 1.28 mg/dL Normal 0.70-1.30 [facility] Comment on above: Performed By: #### ERICK Jacquse, PHOS #### [facility] [address] [place] [address] Dr. David Magana EGFR-AF SIERRA LEONEAN >60 Normal >=60 [facility] Comment on above: Performed By: #### ERICK Jacques, PHOS #### [facility] [address] [place] [address] Dr. David Magana EGFR-NON AF SIERRA LEONEAN 54 mL/min/1.73m2 Critically low >=60 [facility] Comment on above: Performed By: #### ERICK Jacques, PHOS #### [facility] [address] [place] [address] Dr. David Magana Globulin (S) [Mass/Vol] 2.9 g/dL Normal [facility] Comment on above: Performed By: #### ERICK Jacques, PHOS #### [facility] [address] [place] [address] Dr. David Magana Glucose [Mass/Vol] 205 mg/dL Critically high 74-106 [facility] Comment on above: Performed By: #### ERICK Jacques, PHOS #### [facility] [address] [place] [address] Dr. David Magana Potassium [Moles/Vol] 4.0 mmol/L Normal 3.5-5.1 [facility] Comment on above: Performed By: #### ERICK Jacques, PHOS #### [facility] [address] [place] [address] Dr. David Magana Protein [Mass/Vol] 5.5 g/dL Critically low 6.4-8.2 [facility] Comment on above: Performed By: #### M ERICK Faith, PHOS #### [facility] [address] [place] [address] Dr. David Magana Sodium [Moles/Vol] 138 mmol/L Normal 136-145 [facility] Comment on above: Performed By: #### M ERICK Faith, PHOS #### [facility] [address] [place] [address] Dr. David Magana Urea nitrogen [Mass/Vol] 36.0 mg/dL Critically high 7.0-18.0 [facility] Comment on above: Performed By: #### M ERICK Faith, PHOS #### [facility] [address] [place] [address] Dr. David Magana Urea nitrogen/Creatinine [Mass ratio] 28.1 mg/mg Normal [facility] Comment on above: Performed By: #### M ERICK Faith, PHOS #### [facility] [address] [place] [address] Dr. David Magana BNPon 07-21-2022 Natriuretic peptide B (Bld) [Mass/Vol] 3485.0 pg/mL Critically high <=1,800.0 [facility] Comment on above: Result Comment: repe ated Performed By: #### A 1C #### [facility] [address] [place] [address] Dr. David Magana CBC AUTO DIFFon 07-21-2022 BASO # 0.0 103/ul Normal 0.0-0.1 [facility] Comment on above: Performed By: #### C BC #### [facility] [address] [place] [address] Dr. David Magana Basophils/100 WBC (Bld) 0.3 % Normal 0.2-2.0 [facility] Comment on above: Performed By: #### C BC #### [facility] [address] [place] [address] Dr. David Magana EO # 0.2 103/ul Normal 0.0-0.7 [facility] Comment on above: Performed By: #### C BC #### [facility] [address] [place] [address] Dr. David Magana Eosinophils/100 WBC (Bld) 1.9 % Normal 0.9-7.0 [facility] Comment on above: Performed By: #### C BC #### [facility] [address] [place] [address] Dr. David Magana Erythrocyte distribution width (RBC) [Ratio] 13.4 % Normal 11.0-15.0 [facility] Comment on above: Performed By: #### C BC #### [facility] [address] [place] [address] Dr. David Magana Hematocrit (Bld) [Volume fraction] 42.5 % Normal 42.0-54.0 [facility] Comment on above: Performed By: #### C BC #### [facility] [address] [place] [address] Dr. David Magana Hemoglobin (Bld) [Mass/Vol] 14.2 g/dL Normal 14.0-18.0 [facility] Comment on above: Performed By: #### C BC #### [facility] [address] [place] [address] Dr. David Magana IG # 0.22 10e3/ul Critically high 0.00-0.03 [facility] Comment on above: Performed By: #### C BC #### [facility] [address] [place] [address] Dr. David Magana IG % 2.1 % Critically high 0.0-0.5 [facility] Comment on above: Performed By: #### C BC #### [facility] [address] [place] [address] Dr. David Magana LYMPH # 0.8 103/ul Critically low 1.2-3.8 [facility] Comment on above: Performed By: #### C BC #### [facility] [address] [place] [address] Dr. David Magana Lymphocytes/100 WBC (Bld) 7.7 % Critically low 20.5-60.0 [facility] Comment on above: Performed By: #### C BC #### [facility] [address] [place] [address] Dr. David Magana MANUAL DIFF REQ NO Normal [facility] Comment on above: Performed By: #### C BC #### [facility] [address] [place] [address] Dr. David Magana MCH (RBC) [Entitic mass] 33.0 pg Normal 25.9-34.0 [facility] Comment on above: Performed By: #### C BC #### [facility] [address] [place] [address] Dr. David Magana MCHC (RBC) [Mass/Vol] 33.4 g/dL Normal 29.9-35.2 [facility] Comment on above: Performed By: #### C BC #### [facility] [address] [place] [address] Dr. David Magana MCV (RBC) [Entitic vol] 98.8 fL Critically high 80.0-94.0 [facility] Comment on above: Performed By: #### C BC #### [facility] [address] [place] [address] Dr. David Magana MONO # 1.0 103/ul Critically high 0.3-0.8 [facility] Comment on above: Performed By: #### C BC #### [facility] [address] [place] [address] Dr. David Magana Monocytes/100 WBC (Bld) 9.7 % Normal 1.7-12.0 [facility] Comment on above: Performed By: #### C BC #### [facility] [address] [place] [address] Dr. David Magana NEUT # 8.1 103/ul Critically high 1.4-6.5 [facility] Comment on above: Performed By: #### C BC #### [facility] [address] [place] [address] Dr. David Magana Neutrophils/100 WBC (Bld) 78.3 % Critically high 43.0-75.0 [facility] Comment on above: Performed By: #### C BC #### [facility] [address] [place] [address] Dr. David Magana Platelet mean volume (Bld) [Entitic vol] 10.7 fL Normal 9.5-13.5 [facility] Comment on above: Performed By: #### C BC #### [facility] [address] [place] [address] Dr. David Magana PLT 177 103/ul Normal 150-450 [facility] Comment on above: Performed By: #### C BC #### [facility] [address] [place] [address] Dr. David Magana RBC 4.30 106/ul Critically low 4.70-6.10 [facility] Comment on above: Performed By: #### C BC #### [facility] [address] [place] [address] Dr. David Magana WBC 10.4 103/ul Normal 4.0-11.0 [facility] Comment on above: Performed By: #### C BC #### [facility] [address] [place] [address] Dr. David Magana PROF 14(COMP METB)on 022 Albumin [Mass/Vol] 2.6 g/dL Critically low 3.4-5.0 [facility] Comment on above: Performed By: #### A 1C #### [facility] [address] [place] [address] Dr. David Magana Albumin/Globulin [Mass ratio] 1.0 {ratio} Normal [facility] Comment on above: Performed By: #### A 1C #### [facility] [address] [place] [address] Dr. David Magana ALP [Catalytic activity/Vol] 50 U/L Normal 46-116 [facility] Comment on above: Performed By: #### A 1C #### [facility] [address] [place] [address] Dr. David Magana ALT [Catalytic activity/Vol] 28 U/L Normal 16-63 [facility] Comment on above: Performed By: #### A 1C #### [facility] [address] [address] [address] David Magana Anion gap [Moles/Vol] 11.4 mmol/L Normal [facility] Comment on above: Performed By: #### A 1C #### [facility] [address] [address] [address] David Magana AST [Catalytic activity/Vol] 13 U/L Critically low 15-37 [facility] Comment on above: Performed By: #### A 1C #### [facility] [address] [address] [address] David Magana Bilirubin [Mass/Vol] 0.4 mg/dL Normal 0.2-1.0 [facility] Comment on above: Performed By: #### A 1C #### [facility] [address] [address] [address] David Magana Calcium [Mass/Vol] 8.4 mg/dL Critically low 8.5-10.1 [facility] Comment on above: Performed By: #### A 1C #### [facility] [address] [address] [address] David Magana Chloride [Moles/Vol] 107 mmol/L Normal 98-107 [facility] Comment on above: Performed By: #### A 1C #### [facility] [address] [address] [address] David Magana CO2 [Moles/Vol] 24.6 mmol/L Normal 21.0-32.0 [facility] Comment on above: Performed By: #### A 1C #### [facility] [address] [address] [address] David Magana Creatinine [Mass/Vol] 1.26 mg/dL Normal 0.70-1.30 [facility] Comment on above: Performed By: #### A 1C #### [facility] [address] [address] [address] David Magana EGFR-AF SIERRA LEONEAN >60 Normal >=60 [facility] Comment on above: Performed By: #### A 1C #### [facility] [address] [address] [address] David Magana EGFR-NON AF SIERRA LEONEAN 55 mL/min/1.73m2 Critically low >=60 [facility] Comment on above: Performed By: #### A 1C #### [facility] [address] [address] [address] David Magana Globulin (S) [Mass/Vol] 2.7 g/dL Normal [facility] Comment on above: Performed By: #### A 1C #### [facility] [address] [address] [address] David Magana Glucose [Mass/Vol] 203 mg/dL Critically high 74-106 [facility] Comment on above: Performed By: #### A 1C #### [facility] [address] [address] [address] David Magana Potassium [Moles/Vol] 4.0 mmol/L Normal 3.5-5.1 [facility] Comment on above: Performed By: #### A 1C #### [facility] [address] [address] [address] David Magana Protein [Mass/Vol] 5.3 g/dL Critically low 6.4-8.2 [facility] Comment on above: Performed By: #### A 1C #### [facility] [address] [address] [address] David Magana Sodium [Moles/Vol] 139 mmol/L Normal 136-145 [facility] Comment on above: Performed By: #### A 1C #### [facility] [address] [address] [address] David Magana Urea nitrogen [Mass/Vol] 33.0 mg/dL Critically high 7.0-18.0 [facility] Comment on above: Performed By: #### A 1C #### [facility] [address] [address] [address] David Magana Urea nitrogen/Creatinine [Mass ratio] 26.2 mg/mg [facility] Comment on above: Performed By: #### A 1C #### [facility] [address] [place] [address] Dr. David Magana BNPon 07-20-2022 Natriuretic peptide B (Bld) [Mass/Vol] 7478.0 pg/mL Critically high <=1,800.0 [facility] Comment on above: Performed By: #### A 1C #### [facility] [address] [place] [address] Dr. David Magana CBC AUTO DIFFon 07-20-2022 BASO # 0.1 103/ul Normal 0.0-0.1 [facility] Comment on above: Performed By: #### ERICK Jacques, PHOS #### [facility] [address] [place] [address] Dr. David Magana Basophils/100 WBC (Bld) 0.8 % Normal 0.2-2.0 [facility] Comment on above: Performed By: #### ERICK Jacques, PHOS #### [facility] [address] [place] [address] Dr. David Magana EO # 0.1 103/ul Normal 0.0-0.7 [facility] Comment on above: Performed By: #### ERICK Jacques, PHOS #### [facility] [address] [place] [address] Dr. David Magana Eosinophils/100 WBC (Bld) 0.6 % Critically low 0.9-7.0 [facility] Comment on above: Performed By: #### ERICK Jacques, PHOS #### [facility] [address] [place] [address] Dr. David Magana Erythrocyte distribution width (RBC) [Ratio] 13.4 % Normal 11.0-15.0 [facility] Comment on above: Performed By: #### ERICK Jacques, PHOS #### [facility] [address] [place] [address] Dr. David Magana Hematocrit (Bld) [Volume fraction] 43.2 % Normal 42.0-54.0 [facility] Comment on above: Performed By: #### ERICK Jacques, PHOS #### [facility] [address] [address] [address] David Magana Hemoglobin (Bld) [Mass/Vol] 14.2 g/dL Normal 14.0-18.0 [facility] Comment on above: Performed By: #### M G, BMP, PHOS #### [facility] [address] [address] [address] David Magana IG # 0.21 10e3/ul Critically high 0.00-0.03 [facility] Comment on above: Performed By: #### M G, BMP, PHOS #### [facility] [address] [place] [address] Dr. David Magana IG % 2.0 % Critically high 0.0-0.5 [facility] Comment on above: Performed By: #### M G, BMP, PHOS #### [facility] [address] [place] [address] Dr. David Magana LYMPH # 0.8 103/ul Critically low 1.2-3.8 [facility] Comment on above: Performed By: #### M G, BMP, PHOS #### [facility] [address] [place] [address] Dr. David Magana Lymphocytes/100 WBC (Bld) 7.7 % Critically low 20.5-60.0 [facility] Comment on above: Performed By: #### M G, BMP, PHOS #### [facility] [address] [place] [address] Dr. David Magana MANUAL DIFF REQ NO Normal [facility] Comment on above: Performed By: #### M G, BMP, PHOS #### [facility] [address] [place] [address] Dr. David Magana MCH (RBC) [Entitic mass] 33.2 pg Normal 25.9-34.0 [facility] Comment on above: Performed By: #### M G, BMP, PHOS #### [facility] [address] [place] [address] Dr. David Magana MCHC (RBC) [Mass/Vol] 32.9 g/dL Normal 29.9-35.2 [facility] Comment on above: Performed By: #### M ERICK Faith, PHOS #### [facility] [address] [place] [address] Dr. David Magana MCV (RBC) [Entitic vol] 100.9 fL Critically high 80.0-94.0 [facility] Comment on above: Performed By: #### M ERICK Faith, PHOS #### [facility] [address] [place] [address] Dr. David Magana MONO # 1.0 103/ul Critically high 0.3-0.8 [facility] Comment on above: Performed By: #### ERICK Jacques, PHOS #### [facility] [address] [place] [address] Dr. David Magana Monocytes/100 WBC (Bld) 10.0 % Normal 1.7-12.0 [facility] Comment on above: Performed By: #### ERICK Jacques, PHOS #### [facility] [address] [place] [address] Dr. David Magana NEUT # 8.1 103/ul Critically high 1.4-6.5 [facility] Comment on above: Performed By: #### ERICK Jacques, PHOS #### [facility] [address] [place] [address] Dr. David Magana Neutrophils/100 WBC (Bld) 78.9 % Critically high 43.0-75.0 [facility] Comment on above: Performed By: #### ERICK Jacques, PHOS #### [facility] [address] [place] [address] Dr. David Magana Platelet mean volume (Bld) [Entitic vol] 10.8 fL Normal 9.5-13.5 [facility] Comment on above: Performed By: #### ERICK Jacques, PHOS #### [facility] [address] [place] [address] Dr. David Magana PLT 172 103/ul Normal 150-450 [facility] Comment on above: Performed By: #### ERICK Jacques, PHOS #### [facility] [address] [place] [address] Dr. David Magana RBC 4.28 106/ul Critically low 4.70-6.10 [facility] Comment on above: Performed By: #### M ERICK Faith, PHOS #### [facility] [address] [place] [address] Dr. David Magana WBC 10.3 103/ul Normal 4.0-11.0 [facility] Comment on above: Performed By: #### ERICK Jacques, PHOS #### [facility] [address] [place] [address] Dr. David Magana CULTURE URINEon 07-20-2022 CULTURE [...] F Trimethoprim/Sulfameth oxazole >=320 R F Normal [facility] Comment on above: Performed By: #### ERICK Jacques, PHOS #### [facility] [address] [place] [address] Dr. David Magana PROF 14(COMP METB)on 022 Albumin [Mass/Vol] 2.6 g/dL Critically low 3.4-5.0 [facility] Comment on above: Performed By: #### A 1C #### [facility] [address] [place] [address] Dr. David Magana Albumin/Globulin [Mass ratio] 0.9 {ratio} Normal [facility] Comment on above: Performed By: #### A 1C #### [facility] [address] [place] [address] Dr. David Magana ALP [Catalytic activity/Vol] 48 U/L Normal 46-116 [facility] Comment on above: Performed By: #### A 1C #### [facility] [address] [address] [address] David Magana ALT [Catalytic activity/Vol] 27 U/L Normal 16-63 [facility] Comment on above: Performed By: #### A 1C #### [facility] [address] [address] [address] David Magana Anion gap [Moles/Vol] 13.4 mmol/L Normal [facility] Comment on above: Performed By: #### A 1C #### [facility] [address] [address] [address] David Magana AST [Catalytic activity/Vol] 22 U/L Normal 15-37 [facility] Comment on above: Performed By: #### A 1C #### [facility] [address] [address] [address] David Magana Bilirubin [Mass/Vol] 0.5 mg/dL Normal 0.2-1.0 [facility] Comment on above: Performed By: #### A 1C #### [facility] [address] [address] [address] David Magana Calcium [Mass/Vol] 8.3 mg/dL Critically low 8.5-10.1 [facility] Comment on above: Performed By: #### A 1C #### [facility] [address] [address] [address] David Magana Chloride [Moles/Vol] 105 mmol/L Normal 98-107 [facility] Comment on above: Performed By: #### A 1C #### [facility] [address] [address] [address] David Magana CO2 [Moles/Vol] 21.0 mmol/L Normal 21.0-32.0 [facility] Comment on above: Performed By: #### A 1C #### [facility] [address] [address] [address] David Magana Creatinine [Mass/Vol] 1.38 mg/dL Critically high 0.70-1.30 [facility] Comment on above: Performed By: #### A 1C #### [facility] [address] [address] [address] David Magana EGFR-AF SIERRA LEONEAN 60 mL/min/1.73m2 Normal >=60 [facility] Comment on above: Performed By: #### A 1C #### [facility] [address] [address] [address] David Magana EGFR-NON AF SIERRA LEONEAN 49 mL/min/1.73m2 Critically low >=60 [facility] Comment on above: Performed By: #### A 1C #### [facility] [address] [address] [address] David Magana Globulin (S) [Mass/Vol] 2.8 g/dL Normal [facility] Comment on above: Performed By: #### A 1C #### [facility] [address] [address] [address] David Magana Glucose [Mass/Vol] 156 mg/dL Critically high 74-106 [facility] Comment on above: Performed By: #### A 1C #### [facility] [address] [address] [address] David Magana Potassium [Moles/Vol] 4.4 mmol/L Normal 3.5-5.1 [facility] Comment on above: Performed By: #### A 1C #### [facility] [address] [address] [address] David Magana Protein [Mass/Vol] 5.4 g/dL Critically low 6.4-8.2 [facility] Comment on above: Performed By: #### A 1C #### [facility] [address] [address] [address] David Magana Sodium [Moles/Vol] 135 mmol/L Critically low 136-145 [facility] Comment on above: Performed By: #### A 1C #### [facility] [address] [address] [address] David Magana Urea nitrogen [Mass/Vol] 40.0 mg/dL Critically high 7.0-18.0 [facility] Comment on above: Performed By: #### A 1C #### [facility] [address] [place] [address] Dr. David Magana Urea nitrogen/Creatinine [Mass ratio] 29.0 mg/mg Normal [facility] Comment on above: Performed By: #### A 1C #### [facility] [address] [place] [address] Dr. David Magana BNPon 07-19-2022 Natriuretic peptide B (Bld) [Mass/Vol] 32162.0 pg/mL Critically high <=1,800.0 [facility] Comment on above: Performed By: #### C VDTBH #### [facility] [address] [place] [address] Dr. David Magana CBC AUTO DIFFon 07-19-2022 BASO # 0.0 103/ul Normal 0.0-0.1 [facility] Comment on above: Performed By: #### C BC #### [facility] [address] [place] [address] Dr. David Magana Basophils/100 WBC (Bld) 0.3 % Normal 0.2-2.0 [facility] Comment on above: Performed By: #### C BC #### [facility] [address] [place] [address] Dr. David Magana EO # 0.0 103/ul Normal 0.0-0.7 [facility] Comment on above: Performed By: #### C BC #### [facility] [address] [place] [address] Dr. David Magana Eosinophils/100 WBC (Bld) 0.2 % Critically low 0.9-7.0 [facility] Comment on above: Performed By: #### C BC #### [facility] [address] [place] [address] Dr. David Magana Erythrocyte distribution width (RBC) [Ratio] 13.4 % Normal 11.0-15.0 [facility] Comment on above: Performed By: #### C BC #### [facility] [address] [place] [address] Dr. David Magana Hematocrit (Bld) [Volume fraction] 43.4 % Normal 42.0-54.0 [facility] Comment on above: Performed By: #### C BC #### [facility] [address] [place] [address] Dr. David Magana Hemoglobin (Bld) [Mass/Vol] 14.6 g/dL Normal 14.0-18.0 [facility] Comment on above: Performed By: #### C BC #### [facility] [address] [place] [address] Dr. David Magana IG # 0.18 10e3/ul Critically high 0.00-0.03 [facility] Comment on above: Performed By: #### C BC #### [facility] [address] [place] [address] Dr. David Magana IG % 1.5 % Critically high 0.0-0.5 [facility] Comment on above: Performed By: #### C BC #### [facility] [address] [place] [address] Dr. David Magana LYMPH # 0.8 103/ul Critically low 1.2-3.8 [facility] Comment on above: Performed By: #### C BC #### [facility] [address] [place] [address] Dr. David Magana Lymphocytes/100 WBC (Bld) 6.6 % Critically low 20.5-60.0 [facility] Comment on above: Performed By: #### C BC #### [facility] [address] [place] [address] Dr. David Magana MANUAL DIFF REQ NO Normal [facility] Comment on above: Performed By: #### C BC #### [facility] [address] [place] [address] Dr. David Magana MCH (RBC) [Entitic mass] 33.7 pg Normal 25.9-34.0 [facility] Comment on above: Performed By: #### C BC #### [facility] [address] [place] [address] Dr. David Magana MCHC (RBC) [Mass/Vol] 33.6 g/dL Normal 29.9-35.2 [facility] Comment on above: Performed By: #### C BC #### [facility] [address] [address] [address] David Magana MCV (RBC) [Entitic vol] 100.2 fL Critically high 80.0-94.0 [facility] Comment on above: Performed By: #### C BC #### [facility] [address] [place] [address] Dr. David Magana MONO # 1.1 103/ul Critically high 0.3-0.8 [facility] Comment on above: Performed By: #### C BC #### [facility] [address] [place] [address] Dr. David Magana Monocytes/100 WBC (Bld) 9.3 % Normal 1.7-12.0 [facility] Comment on above: Performed By: #### C BC #### [facility] [address] [place] [address] Dr. David Magana NEUT # 9.6 103/ul Critically high 1.4-6.5 [facility] Comment on above: Performed By: #### C BC #### [facility] [address] [place] [address] Dr. David Magana Neutrophils/100 WBC (Bld) 82.1 % Critically high 43.0-75.0 [facility] Comment on above: Performed By: #### C BC #### [facility] [address] [place] [address] Dr. David Magana Platelet mean volume (Bld) [Entitic vol] 10.8 fL Normal 9.5-13.5 [facility] Comment on above: Performed By: #### C BC #### [facility] [address] [place] [address] Dr. David Magana PLT 202 103/ul Normal 150-450 [facility] Comment on above: Performed By: #### C BC #### [facility] [address] [place] [address] Dr. David Magana RBC 4.33 106/ul Critically low 4.70-6.10 [facility] Comment on above: Performed By: #### C BC #### [facility] [address] [place] [address] Dr. David Magana WBC 11.7 103/ul Critically high 4.0-11.0 [facility] Comment on above: Performed By: #### C BC #### [facility] [address] [place] [address] Dr. David Magana PROF 14(COMP METB)on 022 Albumin [Mass/Vol] 3.4 g/dL Normal 3.4-5.0 [facility] Comment on above: Performed By: #### A 1C #### [facility] [address] [place] [address] Dr. David Magana Albumin/Globulin [Mass ratio] 1.1 {ratio} Normal [facility] Comment on above: Performed By: #### A 1C #### [facility] [address] [place] [address] Dr. David Magana ALP [Catalytic activity/Vol] 63 U/L Normal 46-116 [facility] Comment on above: Performed By: #### A 1C #### [facility] [address] [place] [address] Dr. David Magana ALT [Catalytic activity/Vol] 34 U/L Normal 16-63 [facility] Comment on above: Performed By: #### A 1C #### [facility] [address] [place] [address] Dr. David Magana Anion gap [Moles/Vol] 20.9 mmol/L Normal [facility] Comment on above: Performed By: #### A 1C #### [facility] [address] [place] [address] Dr. David Magana AST [Catalytic activity/Vol] 18 U/L Normal 15-37 [facility] Comment on above: Performed By: #### A 1C #### [facility] [address] [place] [address] Dr. David Magana Bilirubin [Mass/Vol] 0.5 mg/dL Normal 0.2-1.0 [facility] Comment on above: Performed By: #### A 1C #### [facility] [address] [address] [address] David Magana Calcium [Mass/Vol] 8.5 mg/dL Normal 8.5-10.1 [facility] Comment on above: Performed By: #### A 1C #### [facility] [address] [address] [address] David Magana Chloride [Moles/Vol] 99 mmol/L Normal 98-107 [facility] Comment on above: Performed By: #### A 1C #### [facility] [address] [address] [address] David Magana CO2 [Moles/Vol] 19.1 mmol/L Critically low 21.0-32.0 [facility] Comment on above: Performed By: #### A 1C #### [facility] [address] [place] [address] Dr. David Magana Creatinine [Mass/Vol] 1.80 mg/dL Critically high 0.70-1.30 [facility] Comment on above: Performed By: #### A 1C #### [facility] [address] [address] [address] David Magana EGFR-AF SIERRA LEONEAN 44 mL/min/1.73m2 Critically low >=60 [facility] Comment on above: Performed By: #### A 1C #### [facility] [address] [address] [address] David Magana EGFR-NON AF SIERRA LEONEAN 36 mL/min/1.73m2 Critically low >=60 [facility] Comment on above: Performed By: #### A 1C #### [facility] [address] [address] [address] David Magana Globulin (S) [Mass/Vol] 3.2 g/dL Normal [facility] Comment on above: Performed By: #### A 1C #### [facility] [address] [address] [address] David Magana Glucose [Mass/Vol] 287 mg/dL Critically high 74-106 [facility] Comment on above: Performed By: #### A 1C #### [facility] [address] [address] [address] David Magana Potassium [Moles/Vol] 5.0 mmol/L Normal 3.5-5.1 [facility] Comment on above: Performed By: #### A 1C #### [facility] [address] [address] [address] David Magana Protein [Mass/Vol] 6.6 g/dL Normal 6.4-8.2 [facility] Comment on above: Performed By: #### A 1C #### [facility] [address] [address] [address] David Magana Sodium [Moles/Vol] 134 mmol/L Critically low 136-145 [facility] Comment on above: Performed By: #### A 1C #### [facility] [address] [address] [address] David Magana Urea nitrogen [Mass/Vol] 51.0 mg/dL Critically high 7.0-18.0 [facility] Comment on above: Performed By: #### A 1C #### [facility] [address] [address] [address] David Magana Urea nitrogen/Creatinine [Mass ratio] 28.3 mg/mg Normal [facility] Comment on above: Performed By: #### A 1C #### [facility] [address] [address] [address] David Magana BLOOD GASES BTYon 07-18-2022 02 MODE NASAL CANNULA Normal [facility] Comment on above: Performed By: #### A 1C #### [facility] [address] [address] [address] David Magana ALLENS TEST Positive Normal [facility] Comment on above: Performed By: #### A 1C #### [facility] [address] [place] [address] Dr. David Magana Base excess Calc (Bld) [Moles/Vol] -9.0000 mmol/L Critically low -2.0-2.0 [facility] Comment on above: Performed By: #### A 1C #### [facility] [address] [place] [address] Dr. David Magana BIPAP PRESSURE Normal [facility] Comment on above: Performed By: #### A 1C #### [facility] [address] [place] [address] Dr. David Magana CPAP Normal [facility] Comment on above: Performed By: #### A 1C #### [facility] [address] [place] [address] Dr. David Magana FIO2 [facility] Comment on above: Performed By: #### A 1C #### [facility] [address] [place] [address] Dr. David Magana HCO3 (Bld) [Moles/Vol] 18.4 mmol/L Critically low 22.0-26.0 [facility] Comment on above: Performed By: #### A 1C #### [facility] [address] [place] [address] Dr. David Magana LPM 1.5 Normal [facility] Comment on above: Performed By: #### A 1C #### [facility] [address] [place] [address] Dr. David Magana MINUTE VOLUME Normal [facility] Comment on above: Performed By: #### A 1C #### [facility] [address] [place] [address] Dr. David Magana Oxygen (Bld) [Partial pressure] 69.5 mm[Hg] Critically low 80.0-100.0 [facility] Comment on above: Performed By: #### A 1C #### [facility] [address] [place] [address] Dr. David Magana Oxygen saturation in Blood 94.2 % Critically low 95.0-100.0 [facility] Comment on above: Performed By: #### A 1C #### [facility] [address] [place] [address] Dr. David Magana PCO2 29.6 mmHg Critically low 35.0-45.0 [facility] Comment on above: Performed By: #### A 1C #### [facility] [address] [place] [address] Dr. David Magana PEEP [facility] Comment on above: Performed By: #### A 1C #### [facility] [address] [place] [address] Dr. David Magana pH (Bld) 7.355 [pH] Normal 7.350-7.450 [facility] Comment on above: Performed By: #### A 1C #### [facility] [address] [place] [address] Dr. David Magana [facility] Comment on above: Performed By: #### A 1C #### [facility] [address] [place] [address] Dr. David Magana [facility] Comment on above: Performed By: #### A 1C #### [facility] [address] [place] [address] Dr. David Magana PUNCTURE SITE LR [facility] Comment on above: Performed By: #### A 1C #### [facility] [address] [place] [address] Dr. David Magana [facility] Comment on above: Performed By: #### A 1C #### [facility] [address] [place] [address] Dr. David Magana VENT [facility] Comment on above: Performed By: #### A 1C #### [facility] [address] [place] [address] Dr. David Magana [facility] Comment on above: Performed By: #### A 1C #### [facility] [address] [place] [address] Dr. David Magana BNPon 07-18-2022 Natriuretic peptide B (Bld) [Mass/Vol] 7047.0 pg/mL Critically high <=1,800.0 [facility] Comment on above: Performed By: #### C VDTB #### [facility] [address] [place] [address] Dr. David Magana CARDIAC BARRIE 3-6on 2 CK [Catalytic activity/Vol] 396 U/L Critically high 39-308 [facility] Comment on above: Performed By: #### M G, BMP, PHOS #### [facility] [address] [address] [address] David Magana CK.MB [Mass/Vol] 2.94 ng/mL Normal <=3.60 [facility] Comment on above: Performed By: #### M G, BMP, PHOS #### [facility] [address] [address] [address] David Magana HSTROP 11.1 pg/mL Normal 4.0-76.1 [facility] Comment on above: Result Comment: CUT- OFF POINTS HAVE BEEN ESTABLISHED BASED ON THE FOURTH UNIVERSAL DEFINITIONS OF MYOCARDIAL INFARCTION. THE UPPER REFERENCE LIMIT (URL) OF TROPONIN, DEFINED THE 99TH PERCENTILE OF cTnI DISTRIBUTION IN A REFERENCE POPULATION, HAS BEEN CONFIRMED THE DECISION THRESHOLD FOR [place] DIAGNOSIS. Performed By: #### M G, BMP, PHOS #### [facility] [address] [place] [address] Dr. David Magana CK [Catalytic activity/Vol] 58 U/L Normal 39-308 [facility] Comment on above: Performed By: #### M G, BMP, PHOS #### [facility] [address] [address] [address] David Magana CK.MB [Mass/Vol] 1.71 ng/mL Normal <=3.60 [facility] Comment on above: Performed By: #### M G, BMP, PHOS #### [facility] [address] [address] [address] David Magana HSTROP 10.6 pg/mL Normal 4.0-76.1 [facility] Comment on above: Result Comment: CUT- OFF POINTS HAVE BEEN ESTABLISHED BASED ON THE FOURTH UNIVERSAL DEFINITIONS OF MYOCARDIAL INFARCTION. THE UPPER REFERENCE LIMIT (URL) OF TROPONIN, DEFINED THE 99TH PERCENTILE OF cTnI DISTRIBUTION IN A REFERENCE POPULATION, HAS BEEN CONFIRMED THE DECISION THRESHOLD FOR [place] DIAGNOSIS. Performed By: #### M G, BMP, PHOS #### [facility] [address] [address] [address] David Magana CBC AUTO DIFFon 07-18-2022 BASO # 0.0 103/ul Normal 0.0-0.1 [facility] Comment on above: Performed By: #### M ERICK Faith, PHOS #### [facility] [address] [place] [address] Dr. David Magana Basophils/100 WBC (Bld) 0.2 % Normal 0.2-2.0 [facility] Comment on above: Performed By: #### M ERICK Faith, PHOS #### [facility] [address] [place] [address] Dr. David Magana EO # 0.0 103/ul Normal 0.0-0.7 [facility] Comment on above: Performed By: #### ERICK Jacques, PHOS #### [facility] [address] [place] [address] Dr. David Magana Eosinophils/100 WBC (Bld) 0.2 % Critically low 0.9-7.0 [facility] Comment on above: Performed By: #### ERICK Jacques, PHOS #### [facility] [address] [place] [address] Dr. David Magana Erythrocyte distribution width (RBC) [Ratio] 13.2 % Normal 11.0-15.0 [facility] Comment on above: Performed By: #### M ERICK Faith, PHOS #### [facility] [address] [place] [address] Dr. David Magana Hematocrit (Bld) [Volume fraction] 43.8 % Normal 42.0-54.0 [facility] Comment on above: Performed By: #### ERICK Jacques, PHOS #### [facility] [address] [place] [address] Dr. David Magana Hemoglobin (Bld) [Mass/Vol] 14.5 g/dL Normal 14.0-18.0 [facility] Comment on above: Performed By: #### ERICK Jacques, PHOS #### [facility] [address] [place] [address] Dr. David Magana IG # 0.15 10e3/ul Critically high 0.00-0.03 [facility] Comment on above: Performed By: #### M G, BMP, PHOS #### [facility] [address] [place] [address] Dr. David Magana IG % 1.3 % Critically high 0.0-0.5 [facility] Comment on above: Performed By: #### M G, BMP, PHOS #### [facility] [address] [place] [address] Dr. David Magana LYMPH # 0.5 103/ul Critically low 1.2-3.8 [facility] Comment on above: Performed By: #### M G, BMP, PHOS #### [facility] [address] [place] [address] Dr. David Magana Lymphocytes/100 WBC (Bld) 3.8 % Critically low 20.5-60.0 [facility] Comment on above: Performed By: #### M G, BMP, PHOS #### [facility] [address] [place] [address] Dr. David Magana MANUAL DIFF REQ NO Normal [facility] Comment on above: Performed By: #### M G, BMP, PHOS #### [facility] [address] [place] [address] Dr. David Magana MCH (RBC) [Entitic mass] 32.7 pg Normal 25.9-34.0 [facility] Comment on above: Performed By: #### M G, BMP, PHOS #### [facility] [address] [place] [address] Dr. David Magana MCHC (RBC) [Mass/Vol] 33.1 g/dL Normal 29.9-35.2 [facility] Comment on above: Performed By: #### M G, BMP, PHOS #### [facility] [address] [place] [address] Dr. David Magana MCV (RBC) [Entitic vol] 98.9 fL Critically high 80.0-94.0 [facility] Comment on above: Performed By: #### M G, BMP, PHOS #### [facility] [address] [place] [address] Dr. David Magana MONO # 0.7 103/ul Normal 0.3-0.8 [facility] Comment on above: Performed By: #### M ERICK Faith, PHOS #### [facility] [address] [address] [address] David Magana Monocytes/100 WBC (Bld) 5.7 % Normal 1.7-12.0 [facility] Comment on above: Performed By: #### ERICK Jacuqes, PHOS #### [facility] [address] [place] [address] Dr. David Magana NEUT # 10.4 103/ul Critically high 1.4-6.5 [facility] Comment on above: Performed By: #### ERICK Jacques, PHOS #### [facility] [address] [place] [address] Dr. David Magana Neutrophils/100 WBC (Bld) 88.8 % Critically high 43.0-75.0 [facility] Comment on above: Performed By: #### ERICK Jacques, PHOS #### [facility] [address] [place] [address] Dr. David Magana Platelet mean volume (Bld) [Entitic vol] 11.0 fL Normal 9.5-13.5 [facility] Comment on above: Performed By: #### ERICK Jacques, PHOS #### [facility] [address] [place] [address] Dr. David Magana PLT 198 103/ul Normal 150-450 [facility] Comment on above: Performed By: #### ERICK Jacques, PHOS #### [facility] [address] [place] [address] Dr. David Magana RBC 4.43 106/ul Critically low 4.70-6.10 [facility] Comment on above: Performed By: #### ERICK Jacques, PHOS #### [facility] [address] [place] [address] Dr. David Magana WBC 11.8 103/ul Critically high 4.0-11.0 [facility] Comment on above: Performed By: #### M G, BMP, PHOS #### [facility] [address], [place] [address] HEAD WO CONon [...] FRANCISCO ZELAYA Date: 2022-07-18 05:12 Normal [facility] Covid-19 PCR (CVDTBH)on SARS-CoV-2 (COVID-19) RNA SULTANA+probe Ql (Unsp spec) Detected Critically abnormal NOT DETECTED [facility] Comment on above: Result Comment: This test is not yet approved or cleared by the [place] FDA. When there are no FDA-approved or cleared tests available, and other criteria are met, FDA can make tests available under an emergency access mechanism called an Emergency Use Authorization (EUA). The EUA for this test is supported by the [place] of Health and Human Service's declaration that [...] used). Performed By: #### C VDTBH #### [facility] [address], [place] [address] Dr. David Magana D-DIMERon 07-18-2022 D-DIMER 1.69 mg/L FEU Critically high <=0.59 [facility] Comment on above: Performed By: #### C BC #### [facility] [address] [place] [address] Dr. David Magana D-DIMER COMMENTS SEE BELOW Normal [facility] Comment on above: Result Comment: Incr eases [...] hospitalization. Performed By: #### C BC #### [facility] [address] [place] [address] Dr. David Magana POINT OF CARE GLUCOSEon Glucose [Mass/Vol] 329 mg/dL Critically high 74-106 [facility] Comment on above: Performed By: #### P OCGLUC #### [facility] [address] [place] [address] Dr. David Magana Glucose [Mass/Vol] 354 mg/dL Critically high 74-106 [facility] Comment on above: Performed By: #### P OCGLUC #### [facility] [address] [place] [address] Dr. David Magana PROF 14(COMP METB)on 022 Albumin [Mass/Vol] 3.6 g/dL Normal 3.4-5.0 [facility] Comment on above: Performed By: #### C VDTBH #### [facility] [address] [place] [address] Dr. David Magana Albumin/Globulin [Mass ratio] 1.1 {ratio} Normal [facility] Comment on above: Performed By: #### C VDTBH #### [facility] [address] [place] [address] Dr. David Magana ALP [Catalytic activity/Vol] 67 U/L Normal 46-116 [facility] Comment on above: Performed By: #### C VDTBH #### [facility] [address] [address] [address] David Magana ALT [Catalytic activity/Vol] 33 U/L Normal 16-63 [facility] Comment on above: Performed By: #### C VDTBH #### [facility] [address] [address] [address] David Magana Anion gap [Moles/Vol] 23.5 mmol/L Normal [facility] Comment on above: Performed By: #### C VDTBH #### [facility] [address] [address] [address] David Magana AST [Catalytic activity/Vol] 13 U/L Critically low 15-37 [facility] Comment on above: Performed By: #### C VDTBH #### [facility] [address] [place] [address] Dr. David Magana Bilirubin [Mass/Vol] 0.6 mg/dL Normal 0.2-1.0 [facility] Comment on above: Performed By: #### C VDTBH #### [facility] [address] [address] [address] David Magana Calcium [Mass/Vol] 8.4 mg/dL Critically low 8.5-10.1 [facility] Comment on above: Performed By: #### C VDTBH #### [facility] [address] [place] [address] Dr. David Magana Chloride [Moles/Vol] 93 mmol/L Critically low 98-107 [facility] Comment on above: Performed By: #### C VDTBH #### [facility] [address] [address] [address] David Magana CO2 [Moles/Vol] 17.9 mmol/L Critically low 21.0-32.0 [facility] Comment on above: Performed By: #### C VDTBH #### [facility] [address] [address] [address] David Magana Creatinine [Mass/Vol] 2.15 mg/dL Critically high 0.70-1.30 [facility] Comment on above: Performed By: #### C VDTBH #### [facility] [address] [address] [address] David Magana EGFR-AF SIERRA LEONEAN 36 mL/min/1.73m2 Critically low >=60 [facility] Comment on above: Performed By: #### C VDTBH #### [facility] [address] [address] [address] David Magana EGFR-NON AF SIERRA LEONEAN 30 mL/min/1.73m2 Critically low >=60 [facility] Comment on above: Performed By: #### C VDTBH #### [facility] [address] [address] [address] David Magana Globulin (S) [Mass/Vol] 3.2 g/dL Normal [facility] Comment on above: Performed By: #### C VDTBH #### [facility] [address] [place] [address] Dr. David Magana Glucose [Mass/Vol] 345 mg/dL Critically high 74-106 [facility] Comment on above: Performed By: #### C VDTBH #### [facility] [address] [address] [address] David Magana Potassium [Moles/Vol] 5.4 mmol/L Critically high 3.5-5.1 [facility] Comment on above: Performed By: #### C VDTBH #### [facility] [address] [place] [address] Dr. David Magana Performed By: #### K #### [facility] [address] [place] [address] Dr. David Magana Protein [Mass/Vol] 6.8 g/dL Normal 6.4-8.2 [facility] Comment on above: Performed By: #### C VDTBH #### [facility] [address] [place] [address] Dr. David Magana Sodium [Moles/Vol] 129 mmol/L Critically low 136-145 [facility] Comment on above: Performed By: #### C VDTBH #### [facility] [address] [place] [address] Dr. David Magana Urea nitrogen [Mass/Vol] 65.0 mg/dL Critically high 7.0-18.0 [facility] Comment on above: Performed By: #### C VDTBH #### [facility] [address] [place] [address] Dr. David Magana Urea nitrogen/Creatinine [Mass ratio] 30.2 mg/mg Normal [facility] Comment on above: Performed By: #### C VDTBH #### [facility] [address] [place] [address] Dr. David Magana UA RANDOM W/MICROSCOPICon BACTERIA NONE SEEN Normal NONE SEEN [facility] Comment on above: Performed By: #### M ERICK Faith, PHOS #### [facility] [address] [place] [address] Dr. David Magana Bilirubin Ql (U) Negative Normal NEGATIVE The [facility] Comment on above: Performed By: #### Jim Faith BMP, PHOS #### [facility] [address] [place] [address] Dr. David Magana CAST NONE SEEN Normal NONE SEEN [facility] Comment on above: Performed By: #### M Marcell BMP, PHOS #### [facility] [address] [place] [address] Dr. Dvaid Magana Clarity (U) CLEAR Normal CLEAR [facility] Comment on above: Performed By: #### M Marcell BMP, PHOS #### [facility] [address] [place] [address] Dr. David Magana Color (U) LT. YELLOW Normal YELLOW [facility] Comment on above: Performed By: #### M G, BMP, PHOS #### [facility] [address] [place] [address] Dr. David Magana Crystals LM Nom (Urine sed) NONE SEEN Normal NONE SEEN [facility] Comment on above: Performed By: #### M Marcell BMP, PHOS #### [facility] [address] [place] [address] Dr. David Magana Epithelial cells LM Ql (Urine sed) RARE Normal NONE SEEN /RARE [facility] Comment on above: Performed By: #### M G, BMP, PHOS #### [facility] [address] [address] [address] David Magana Glucose Ql (U) 1000 mg/dl Abnormal NEGATIVE The [facility] Comment on above: Performed By: #### M G, BMP, PHOS #### [facility] [address] [address] [address] David Magana Hemoglobin Ql (U) Negative Normal NEGATIVE The [facility] Comment on above: Performed By: #### M G, BMP, PHOS #### [facility] [address] [address] [address] David Magana Ketones Ql (U) 15 mg/dl Abnormal NEGATIVE The [facility] Comment on above: Performed By: #### M G, BMP, PHOS #### [facility] [address] [place] [address] Dr. David Magana LEUKOCYTES Negative Normal NEGATIVE [facility] Comment on above: Performed By: #### M G, BMP, PHOS #### [facility] [address] [place] [address] Dr. David Magana MUCOUS NONE SEEN Normal NONE SEEN [facility] Comment on above: Performed By: #### M G, BMP, PHOS #### [facility] [address] [place] [address] Dr. David Magana Nitrite Ql (U) Negative Normal NEGATIVE The [facility] Comment on above: Performed By: #### M G, BMP, PHOS #### [facility] [address] [place] [address] Dr. David Magana pH (U) 5.5 [pH] Normal 5-9 [facility] Comment on above: Performed By: #### M G, BMP, PHOS #### [facility] [address] [place] [address] Dr. David Magana RBC NONE SEEN Abnormal 0-2 [facility] Comment on above: Performed By: #### M G, BMP, PHOS #### [facility] [address] [place] [address] Dr. David Magana SPEC GRAVITY <=1.005 Abnormal 1.005-<=1.02 5 [facility] Comment on above: Performed By: #### ERICK Jacques, PHOS #### [facility] [address] [address] [address] David Magana UA PROTEIN Negative Normal NEGATIVE/ TRACE [facility] Comment on above: Performed By: #### ERICK Jacques, PHOS #### [facility] [address] [address] [address] David Magana Urobilinogen Qn (U) 0.2 {Dionna'U}/dL Normal 0.2 - 1. 0 [facility] Comment on above: Performed By: #### ERICK Jacques, PHOS #### [facility] [address] [place] [address] Dr. David Magana WBC NONE SEEN Normal NONE SEEN [facility] Comment on above: Performed By: #### ERICK Jacques, PHOS #### [facility] [address] [place] [address] Dr. David Magana XR CHEST 1 Von [...] Yefri DWYER Date: 2022-07-18 00:09 Normal [facility] CARDIAC BARRIE ADMITon 022 CK [Catalytic activity/Vol] 61 U/L Normal 39-308 [facility] Comment on above: Performed By: #### C BC #### [facility] [address] [place] [address] Dr. David Magana CK.MB [Mass/Vol] 1.84 ng/mL Normal <=3.60 The [facility] Comment on above: Performed By: #### C BC #### [facility] [address] [place] [address] Dr. David Magana HSTROP 9.4 pg/mL Normal 4.0-76.1 [facility] Comment on above: Result Comment: CUT- OFF POINTS HAVE BEEN ESTABLISHED BASED ON THE FOURTH UNIVERSAL DEFINITIONS OF MYOCARDIAL INFARCTION. THE UPPER REFERENCE LIMIT (URL) OF TROPONIN, DEFINED THE 99TH PERCENTILE OF cTnI DISTRIBUTION IN A REFERENCE POPULATION, HAS BEEN CONFIRMED THE DECISION THRESHOLD FOR [place] DIAGNOSIS. Performed By: #### C BC #### [facility] [address] [address] [address] David Magana DUSTIN 533 ng/mL Critically high 16-96 [facility] Comment on above: Performed By: #### C BC #### [facility] [address] [place] [address] Dr. David Magana CBC AUTO DIFFon 07-17-2022 BASO # 0.0 103/ul Normal 0.0-0.1 [facility] Comment on above: Performed By: #### M ERICK Faith, PHOS #### [facility] [address] [place] [address] Dr. David Magana Basophils/100 WBC (Bld) 0.2 % Normal 0.2-2.0 [facility] Comment on above: Performed By: #### M ERICK Faith, PHOS #### [facility] [address] [place] [address] Dr. David Magana EO # 0.0 103/ul Normal 0.0-0.7 [facility] Comment on above: Performed By: #### M ERICK Faith, PHOS #### [facility] [address] [place] [address] Dr. David Magana Eosinophils/100 WBC (Bld) 0.1 % Critically low 0.9-7.0 [facility] Comment on above: Performed By: #### M ERICK Faith, PHOS #### [facility] [address] [place] [address] Dr. David Magana Erythrocyte distribution width (RBC) [Ratio] 13.2 % Normal 11.0-15.0 [facility] Comment on above: Performed By: #### M G, BMP, PHOS #### [facility] [address] [place] [address] Dr. David Magana Hematocrit (Bld) [Volume fraction] 43.1 % Normal 42.0-54.0 [facility] Comment on above: Performed By: #### M G, BMP, PHOS #### [facility] [address] [place] [address] Dr. David Magana Hemoglobin (Bld) [Mass/Vol] 14.5 g/dL Normal 14.0-18.0 [facility] Comment on above: Performed By: #### M G, BMP, PHOS #### [facility] [address] [place] [address] Dr. David Magana IG # 0.14 10e3/ul Critically high 0.00-0.03 [facility] Comment on above: Performed By: #### M Marcell, BMP, PHOS #### [facility] [address] [place] [address] Dr. David Magana IG % 1.2 % Critically high 0.0-0.5 [facility] Comment on above: Performed By: #### M Marcell BMP, PHOS #### [facility] [address] [place] [address] Dr. David Magana LYMPH # 0.4 103/ul Critically low 1.2-3.8 [facility] Comment on above: Performed By: #### M Marcell BMP, PHOS #### [facility] [address] [place] [address] Dr. David Magana Lymphocytes/100 WBC (Bld) 3.4 % Critically low 20.5-60.0 [facility] Comment on above: Performed By: #### M G BMP, PHOS #### [facility] [address] [place] [address] Dr. David Magana MANUAL DIFF REQ NO Normal [facility] Comment on above: Performed By: #### M G, BMP, PHOS #### [facility] [address] [place] [address] Dr. David Magana MCH (RBC) [Entitic mass] 33.3 pg Normal 25.9-34.0 [facility] Comment on above: Performed By: #### M ERICK Faith, PHOS #### [facility] [address] [place] [address] Dr. David Magana MCHC (RBC) [Mass/Vol] 33.6 g/dL Normal 29.9-35.2 [facility] Comment on above: Performed By: #### M Marcell, BMP, PHOS #### [facility] [address] [place] [address] Dr. David Magana MCV (RBC) [Entitic vol] 98.9 fL Critically high 80.0-94.0 [facility] Comment on above: Performed By: #### M ERICK Faith, PHOS #### [facility] [address] [place] [address] Dr. David Magana MONO # 1.1 103/ul Critically high 0.3-0.8 The [facility] Comment on above: Performed By: #### M ERICK Faith, PHOS #### [facility] [address] [place] [address] Dr. David Magana Monocytes/100 WBC (Bld) 8.9 % Normal 1.7-12.0 [facility] Comment on above: Performed By: #### M ERICK Faith, PHOS #### [facility] [address] [place] [address] Dr. David Magana NEUT # 10.3 103/ul Critically high 1.4-6.5 [facility] Comment on above: Performed By: #### M Marcell BMP, PHOS #### [facility] [address] [place] [address] Dr. David Magana Neutrophils/100 WBC (Bld) 86.2 % Critically high 43.0-75.0 [facility] Comment on above: Performed By: #### M Marcell BMP, PHOS #### [facility] [address] [place] [address] Dr. David Magana Platelet mean volume (Bld) [Entitic vol] 11.1 fL Normal 9.5-13.5 [facility] Comment on above: Performed By: #### M Marcell BMP, PHOS #### [facility] [address] [place] [address] Dr. David Magana PLT 229 103/ul Normal 150-450 [facility] Comment on above: Performed By: #### M Marcell, BMP, PHOS #### [facility] [address] [place] [address] Dr. David Magana RBC 4.36 106/ul Critically low 4.70-6.10 [facility] Comment on above: Performed By: #### M Marcell, BMP, PHOS #### [facility] [address] [place] [address] Dr. David Magana WBC 11.9 103/ul Critically high 4.0-11.0 [facility] Comment on above: Performed By: #### M ERICK Faith, PHOS #### [facility] [address] [place] [address] Dr. David Magana PROF CHEM 8 (BAS METB)on Anion gap [Moles/Vol] 26.5 mmol/L Normal [facility] Comment on above: Performed By: #### C BC #### [facility] [address] [place] [address] Dr. David Magana Calcium [Mass/Vol] 8.2 mg/dL Critically low 8.5-10.1 [facility] Comment on above: Performed By: #### C BC #### [facility] [address] [place] [address] Dr. David Magana Chloride [Moles/Vol] 89 mmol/L Critically low 98-107 [facility] Comment on above: Performed By: #### C BC #### [facility] [address] [place] [address] Dr. David Magana CO2 [Moles/Vol] 14.5 mmol/L Critically low 21.0-32.0 [facility] Comment on above: Performed By: #### C BC #### [facility] [address] [place] [address] Dr. David Magana Creatinine [Mass/Vol] 2.78 mg/dL Critically high 0.70-1.30 [facility] Comment on above: Performed By: #### C BC #### [facility] [address] [address] [address] David Magana EGFR-AF SIERRA LEONEAN 27 mL/min/1.73m2 Critically low >=60 [facility] Comment on above: Performed By: #### C BC #### [facility] [address] [address] [address] David Magana EGFR-NON AF SIERRA LEONEAN 22 mL/min/1.73m2 Critically low >=60 [facility] Comment on above: Performed By: #### C BC #### [facility] [address] [address] [address] David Magana Glucose [Mass/Vol] 442 mg/dL Critically high 74-106 [facility] Comment on above: Performed By: #### C BC #### [facility] [address] [address] [address] David Magnaa Potassium [Moles/Vol] 6.0 mmol/L Critically high 3.5-5.1 [facility] Comment on above: Performed By: #### C BC #### [facility] [address] [place] [address] Dr. David Magana Sodium [Moles/Vol] 124 mmol/L Critically low 136-145 [facility] Comment on above: Performed By: #### C BC #### [facility] [address] [address] [address] David Magana Urea nitrogen [Mass/Vol] 73.0 mg/dL Critically high 7.0-18.0 [facility] Comment on above: Performed By: #### C BC #### [facility] [address] [place] [address] Dr. David Magana Urea nitrogen/Creatinine [Mass ratio] 26.3 mg/mg Normal [facility] Comment on above: Performed By: #### C BC #### [facility] [address] [place] [address] Dr. David Magana Covid-19 PCR (CVDTBH)on 06-16 SARS-CoV-2 (COVID-19) RNA SULTANA+probe Ql (Unsp spec) Detected Critically abnormal NOT DETECTED [facility] Comment on above: Result Comment: This test is not yet approved or cleared by the [place] FDA. When there are no FDA-approved or cleared tests available, and other criteria are met, FDA can make tests available under an emergency access mechanism called an Emergency Use Authorization (EUA). The EUA for this test is supported by the [employer] of Health and Human Service's (HHS's) [...] By: #### M ERICK Faith, JOSUE #### [facility] [address] [place] [address] Dr. David Magana ECHOCARDIO M/2D COMPLETEon 0 07-01-2022 ECHOCARDIO M/2D COMPLETE Patient: NADIR BETH Exam Date: 07/01/2022 : 1940 Gender:M Ordering : DR CLARIBEL CISNEROS M.D. Admission #: [id number] Family : DR VAN YOUSSEF . Order #: [id number] CLICK HERE TO VIEW EXAM ECHOCARDIOGRAM REPORT [...] M.D. on 07/01/2022 at 16:27 Normal [facility] Covid-19 PCR (CVDTBH)on SARS-CoV-2 (COVID-19) RNA SULTANA+probe Ql (Unsp spec) Not detected Normal NOT DETECTED [facility] Comment on above: Result Comment: When [...] for this test is supported by the [place] of Health and Human Service's declaration that [...] used). Performed By: #### C VDTBH #### [facility] [address] [address] [address] David Magana CREATININE URINEon 2 URINE CREAT 14.70 mg/dL Critically low 20.00-300.00 [facility] Comment on above: Performed By: #### M ERICK Faith, PHOS #### [facility] [address] [place], [place] [address] Dr. David Magana GLYCOHEMOGLOBIN A1Con 2021 ADA RECOMMENDATION SEE BELOW Normal [facility] Comment on above: Result Comment: ADA RECOMMENDED LIMIT 4.0 - 6.0 ADA THERAPEUTIC TARGET < 7.0 ACTION SUGGESTED > 7.0 Performed By: #### A 1C #### [facility] [address] [place] [address] Dr. David Magana Glucose [Mass/Vol] 209 mg/dL Normal [facility] Comment on above: Performed By: #### A 1C #### [facility] [address] [place] [address] Dr. David Magana HbA1c (Bld) [Mass fraction] 8.9 % Critically high 4.5-6.2 [facility] Comment on above: Performed By: #### A 1C #### [facility] [address] [place] [address] Dr. David Magana MAGNESIUMon 06-08-2022 Magnesium [Mass/Vol] 2.3 mg/dL Normal 1.8-2.4 [facility] Comment on above: Performed By: #### M Marcell BMP, PHOS #### [facility] [address] [place] [address] Dr. David Magana PHOSPHORUSon 06-08-2022 Phosphate [Mass/Vol] 3.5 mg/dL Normal 2.6-4.7 [facility] Comment on above: Performed By: #### M Marcell, BMP, PHOS #### [facility] [address] [place] [address] Dr. David Magana PROF CHEM 8 (BAS METB)on Anion gap [Moles/Vol] 10.6 mmol/L Normal [facility] Comment on above: Performed By: #### M G, BMP, PHOS #### [facility] [address] [place] [address] Dr. David Magana Calcium [Mass/Vol] 9.2 mg/dL Normal 8.5-10.1 [facility] Comment on above: Performed By: #### M G, BMP, PHOS #### [facility] [address] [place] [address] Dr. David Magana Chloride [Moles/Vol] 102 mmol/L Normal 98-107 [facility] Comment on above: Performed By: #### M ERICK Faith, PHOS #### [facility] [address] [place] [address] Dr. David Magana CO2 [Moles/Vol] 30.1 mmol/L Normal 21.0-32.0 [facility] Comment on above: Performed By: #### M ERICK Faith, PHOS #### [facility] [address] [place] [address] Dr. David Magana Creatinine [Mass/Vol] 1.70 mg/dL Critically high 0.70-1.30 [facility] Comment on above: Performed By: #### ERICK Jacques, PHOS #### [facility] [address] [place] [address] Dr. David Magana EGFR-AF SIERRA LEONEAN 47 mL/min/1.73m2 Critically low >=60 [facility] Comment on above: Performed By: #### ERICK Jacques, PHOS #### [facility] [address] [place] [address] Dr. David Magana EGFR-NON AF SIERRA LEONEAN 39 mL/min/1.73m2 Critically low >=60 [facility] Comment on above: Performed By: #### ERICK Jacques, PHOS #### [facility] [address] [place] [address] Dr. David Magana Glucose [Mass/Vol] 197 mg/dL Critically high 74-106 [facility] Comment on above: Performed By: #### ERICK Jacques, PHOS #### [facility] [address] [place] [address] Dr. David Magana Potassium [Moles/Vol] 4.7 mmol/L Normal 3.5-5.1 [facility] Comment on above: Performed By: #### ERICK Jacques, PHOS #### [facility] [address] [place] [address] Dr. David Magana Sodium [Moles/Vol] 138 mmol/L Normal 136-145 [facility] Comment on above: Performed By: #### Jim Faith BMP, PHOS #### [facility] [address] [place] [address] Dr. David Magana Urea nitrogen [Mass/Vol] 25.0 mg/dL Critically high 7.0-18.0 [facility] Comment on above: Performed By: #### M G BMP, PHOS #### [facility] [address] [place] [address] Dr. David Magana Urea nitrogen/Creatinine [Mass ratio] 14.7 mg/mg Normal [facility] Comment on above: Performed By: #### M Marcell BMP, PHOS #### [facility] [address] [place] [address] Dr. David Magana PROTEIN RAND URINEon 022 UR PROT <5.0 Normal <=11.9 [facility] Comment on above: Performed By: #### C REAU, PROTU #### [facility] [address] [place] [address] Dr. David Magana BILIRUBIN CONJUGATED (DIRECT )on 04-28-2022 BILI, CONJUGATED 0.1 mg/dL Normal 0.0-0.2 [facility] Comment on above: Performed By: #### P OCGLUC #### [facility] [address] [place] [address] Dr. David Magana CBC AUTO DIFFon 04-28-2022 BASO # 0.1 103/ul Normal 0.0-0.1 [facility] Comment on above: Performed By: #### C VDTBH #### [facility] [address] [place] [address] Dr. David Magana Basophils/100 WBC (Bld) 0.7 % Normal 0.2-2.0 [facility] Comment on above: Performed By: #### C VDTBH #### [facility] [address] [place] [address] Dr. David Magana EO # 0.5 103/ul Normal 0.0-0.7 [facility] Comment on above: Performed By: #### C VDTBH #### [facility] [address] [place] [address] Dr. David Magana Eosinophils/100 WBC (Bld) 6.7 % Normal 0.9-7.0 [facility] Comment on above: Performed By: #### C VDTBH #### [facility] [address] [place] [address] Dr. David Magana Erythrocyte distribution width (RBC) [Ratio] 13.6 % Normal 11.0-15.0 [facility] Comment on above: Performed By: #### C VDTBH #### [facility] [address] [place] [address] Dr. David Magana Hematocrit (Bld) [Volume fraction] 45.9 % Normal 42.0-54.0 [facility] Comment on above: Performed By: #### C VDTBH #### [facility] [address] [place] [address] Dr. David Magana Hemoglobin (Bld) [Mass/Vol] 14.9 g/dL Normal 14.0-18.0 [facility] Comment on above: Performed By: #### C VDTBH #### [facility] [address] [place] [address] Dr. David Magana IG # 0.03 10e3/ul Normal 0.00-0.03 [facility] Comment on above: Performed By: #### C VDTBH #### [facility] [address] [place] [address] Dr. David Magana IG % 0.4 % Normal 0.0-0.5 [facility] Comment on above: Performed By: #### C VDTBH #### [facility] [address] [place] [address] Dr. David Magana LYMPH # 1.0 103/ul Critically low 1.2-3.8 [facility] Comment on above: Performed By: #### C VDTBH #### [facility] [address] [place] [address] Dr. David Magana Lymphocytes/100 WBC (Bld) 13.4 % Critically low 20.5-60.0 [facility] Comment on above: Performed By: #### C VDTBH #### [facility] [address] [place] [address] Dr. David Magana MANUAL DIFF REQ NO Normal [facility] Comment on above: Performed By: #### C VDTBH #### [facility] [address] [place] [address] Dr. David Magana MCH (RBC) [Entitic mass] 33.8 pg Normal 25.9-34.0 [facility] Comment on above: Performed By: #### C VDTBH #### [facility] [address] [place] [address] Dr. David Magana MCHC (RBC) [Mass/Vol] 32.5 g/dL Normal 29.9-35.2 [facility] Comment on above: Performed By: #### C VDTBH #### [facility] [address] [place] [address] Dr. David Magana MCV (RBC) [Entitic vol] 104.1 fL Critically high 80.0-94.0 [facility] Comment on above: Performed By: #### C VDTBH #### [facility] [address] [place] [address] Dr. David Magana MONO # 0.8 103/ul Normal 0.3-0.8 [facility] Comment on above: Performed By: #### C VDTBH #### [facility] [address] [place] [address] Dr. David Magana Monocytes/100 WBC (Bld) 10.2 % Normal 1.7-12.0 [facility] Comment on above: Performed By: #### C VDTBH #### [facility] [address] [place] [address] Dr. David Magana NEUT # 5.1 103/ul Normal 1.4-6.5 [facility] Comment on above: Performed By: #### C VDTBH #### [facility] [address] [place] [address] Dr. David Magana Neutrophils/100 WBC (Bld) 68.6 % Normal 43.0-75.0 [facility] Comment on above: Performed By: #### C VDTBH #### [facility] [address] [address] [address] David Magana Platelet mean volume (Bld) [Entitic vol] 11.3 fL Normal 9.5-13.5 [facility] Comment on above: Performed By: #### C VDTBH #### [facility] [address] [address] [address] David Magana PLT 185 103/ul Normal 150-450 [facility] Comment on above: Performed By: #### C VDTBH #### [facility] [address] [address] [address] David Magana RBC 4.41 106/ul Critically low 4.70-6.10 [facility] Comment on above: Performed By: #### C VDTBH #### [facility] [address] [place] [address] Dr. David Magana WBC 7.5 103/ul Normal 4.0-11.0 [facility] Comment on above: Performed By: #### C VDTBH #### [facility] [address] [place] [address] Dr. David Magana FREE T3on 04-28-2022 FREE T3 2.17 pg/mlL Critically low 2.18-3.98 [facility] Comment on above: Performed By: #### P OCGLUC #### [facility] [address] [place] [address] Dr. David Magana LIPID PROFILEon 04-28-2022 CHOL-HDL RATIO NORM SEE BELOW Normal [facility] Comment on above: Result Comment: 3.3 - 4.4 LOW RISK 4.4 - 7.1 AVERAGE RISK 7.1 - 11.0 MODERATE RISK >11.0 HIGH RISK Performed By: #### P OCGLUC #### [facility] [address] [place] [address] Dr. David Magana Cholesterol [Mass/Vol] 234 mg/dL Critically high <=200 [facility] Comment on above: Performed By: #### P OCGLUC #### [facility] [address] [address] [address] David Magana Cholesterol in HDL [Mass/Vol] 58 mg/dL Normal 40-60 [facility] Comment on above: Performed By: #### P OCGLUC #### [facility] [address] [address] [address] David Magana Cholesterol in LDL [Mass/Vol] 129.0 mg/dL Normal [facility] Comment on above: Performed By: #### P OCGLUC #### [facility] [address] [address] [address] David Magana Cholesterol.total/Cho lesterol in HDL [Mass ratio] 4.0 {ratio} Normal [facility] Comment on above: Performed By: #### P OCGLUC #### [facility] [address] [address] [address] David Magana HDL NORMAL > or = 60 mg/dl - LO W CARDIOVASCULAR RISK <40 mg/dl - HIGH CARDIOVASCULAR RISK Normal [facility] Comment on above: Performed By: #### P OCGLUC #### [facility] [address] [address] [address] David Magana LDL CALC NORMAL SEE BELOW Normal [facility] Comment on above: Result Comment: <100 mg/dl OPTIMAL 100 - 129 mg/dl NEAR OR ABOVE OPTIMAL 130 - 159 mg/dl BORDERLINE HIGH 160 - 189 mg/dl HIGH >190 mg/dl VERY HIGH Performed By: #### P OCGLUC #### [facility] [address] [address] [address] David Magana Triglyceride [Mass/Vol] 235 mg/dL Critically high <=150 [facility] Comment on above: Performed By: #### P OCGLUC #### [facility] [address] [address] [address] David Magana VLDL CALC 47.0 mg/dL Normal [facility] Comment on above: Performed By: #### P OCGLUC #### [facility] [address] [address] [address] David Magana PROF 14(COMP METB)on 022 Albumin [Mass/Vol] 3.2 g/dL Critically low 3.4-5.0 [facility] Comment on above: Performed By: #### P OCGLUC #### [facility] [address] [address] [address] David Magana Albumin/Globulin [Mass ratio] 0.9 {ratio} Normal [facility] Comment on above: Performed By: #### P OCGLUC #### [facility] [address] [address] [address] David Magana ALP [Catalytic activity/Vol] 77 U/L Normal 46-116 [facility] Comment on above: Performed By: #### P OCGLUC #### [facility] [address] [address] [address] David Magana ALT [Catalytic activity/Vol] 24 U/L Normal 16-63 [facility] Comment on above: Performed By: #### P OCGLUC #### [facility] [address] [place] [address] Dr. David Magana Anion gap [Moles/Vol] 13.1 mmol/L Normal [facility] Comment on above: Performed By: #### P OCGLUC #### [facility] [address] [place] [address] Dr. David Magana AST [Catalytic activity/Vol] 13 U/L Critically low 15-37 [facility] Comment on above: Performed By: #### P OCGLUC #### [facility] [address] [place] [address] Dr. David Magana Bilirubin [Mass/Vol] 0.3 mg/dL Normal 0.2-1.0 [facility] Comment on above: Performed By: #### P OCGLUC #### [facility] [address] [address] [address] David Magana Calcium [Mass/Vol] 8.8 mg/dL Normal 8.5-10.1 [facility] Comment on above: Performed By: #### P OCGLUC #### [facility] [address] [address] [address] David Magana Chloride [Moles/Vol] 106 mmol/L Normal 98-107 [facility] Comment on above: Performed By: #### P OCGLUC #### [facility] [address] [place] [address] Dr. Daivd Magana CO2 [Moles/Vol] 27.5 mmol/L Normal 21.0-32.0 [facility] Comment on above: Performed By: #### P OCGLUC #### [facility] [address] [address] [address] David Magana Creatinine [Mass/Vol] 1.62 mg/dL Critically high 0.70-1.30 [facility] Comment on above: Performed By: #### P OCGLUC #### [facility] [address] [address] [address] David Magana EGFR-AF SIERRA LEONEAN 50 mL/min/1.73m2 Critically low >=60 [facility] Comment on above: Performed By: #### P OCGLUC #### [facility] [address] [address] [address] David Magana EGFR-NON AF SIERRA LEONEAN 41 mL/min/1.73m2 Critically low >=60 [facility] Comment on above: Performed By: #### P OCGLUC #### [facility] [address] [address] [address] David Magana Globulin (S) [Mass/Vol] 3.4 g/dL Normal [facility] Comment on above: Performed By: #### P OCGLUC #### [facility] [address] [address] [address] David Magana Glucose [Mass/Vol] 206 mg/dL Critically high 74-106 [facility] Comment on above: Performed By: #### P OCGLUC #### [facility] [address] [address] [address] David Magana Potassium [Moles/Vol] 4.6 mmol/L Normal 3.5-5.1 [facility] Comment on above: Performed By: #### P OCGLUC #### [facility] [address] [address] [address] David Magana Protein [Mass/Vol] 6.6 g/dL Normal 6.4-8.2 [facility] Comment on above: Performed By: #### P OCGLUC #### [facility] [address] [address] [address] David Magana Sodium [Moles/Vol] 142 mmol/L Normal 136-145 [facility] Comment on above: Performed By: #### P OCGLUC #### [facility] [address] [place] [address] Dr. David Magana Urea nitrogen [Mass/Vol] 26.0 mg/dL Critically high 7.0-18.0 [facility] Comment on above: Performed By: #### P OCGLUC #### [facility] [address] [place] [address] Dr. David Magana Urea nitrogen/Creatinine [Mass ratio] 16.0 mg/mg Normal [facility] Comment on above: Performed By: #### P OCGLUC #### [facility] [address] [place] [address] Dr. David Magana T4on 04-28-2022 T4 [Mass/Vol] 7.70 ug/dL Normal 4.50-12.10 [facility] Comment on above: Performed By: #### P OCGLUC #### [facility] [address] [place] [address] Dr. David Magana TSHon 04-28-2022 TSH 2.187 uIU/mL Normal 0.358-3.740 [facility] Comment on above: Performed By: #### P OCGLUC #### [facility] [address] [place] [address] Dr. David Magana TSH RANGE SEE BELOW Normal [facility] Comment on above: Result Comment: <0.3 4 UIU/ml HYPERTHYROID 0.34-5.60 UIU/ml EUTHYROID >5.60 UIU/ml HYPOTHYROID Performed By: #### P OCGLUC #### [facility] [address] [place] [address] Dr. David Magana Vital Signs Date Time Vital Sign Value Performing Clinician Facility 11-02-2024 08:09-0500 Blood Pressure Location MARQUIS LOUISE [facility] 11-02-2024 08:09-0500 Diastolic blood pressure 67 mm[Hg] MARQUIS NKANSAH-AMANKRA [facility] 11-02-2024 08:09-0500 Heart rate 65 /min MARQUIS NKANSAH-AMANKRA [facility] 11-02-2024 08:09-0500 Systolic blood pressure 102 mm[Hg] MARQUIS NKANSAH-AMANKRA [facility] 09-14-2024 08:19-0400 Body height 182.9 cm Blaise Chicas DPM Work Phone: [facility] 09-14-2024 08:19-0400 Body mass index (BMI) [Ratio] 39.2 kg/m2 Blaise Chicas DPM Work Phone: [facility] 09-14-2024 08:19-0400 Body weight 131.09 kg Blaise Chicas DPM Work Phone: [facility] 09-14-2024 08:19-0400 Diastolic blood pressure 79 mm[Hg] Blaise Chicas DPM Work Phone: [facility] 09-14-2024 08:19-0400 Heart rate 81 /min Blaise Chicas DPM Work Phone: [facility] 09-14-2024 08:19-0400 Systolic blood pressure 128 mm[Hg] Blaise Chicas DPM Work Phone: [facility] 08-08-2024 10:25-0400 Blood Pressure Location MARQUIS NKANSAH-AMANKRA [facility] 08-08-2024 10:25-0400 Diastolic blood pressure 82 mm[Hg] MARQUIS NKANSAH-AMANKRA [facility] 08-08-2024 10:25-0400 Systolic blood pressure 140 mm[Hg] MARQUIS LOUISE [facility] 08-03-2024 08:45-0400 Body height 182.9 cm Blaise Chicas DPM Work Phone: [facility] 08-03-2024 08:45-0400 Body mass index (BMI) [Ratio] 39.2 kg/m2 Blaise Chicas DPM Work Phone: [facility] 08-03-2024 08:45-0400 Body weight 131.09 kg Blaise Chicas DPM Work Phone: [facility] 08-03-2024 08:45-0400 Diastolic blood pressure 82 mm[Hg] Blaise Chicas DPM Work Phone: [facility] 08-03-2024 08:45-0400 Heart rate 75 /min Blaise Chicas DPM Work Phone: [facility] 08-03-2024 08:45-0400 Respiratory rate 18 /min Blaise Chicas DPM Work Phone: [facility] 08-03-2024 08:45-0400 Systolic blood pressure 130 mm[Hg] Blaise Chicas DPM Work Phone: [facility] 08-01-2024 11:24-0400 Body height 182.9 cm Barrie Montoya MD Work Phone: [facility] 08-01-2024 11:24-0400 Body mass index (BMI) [Ratio] 39.2 kg/m2 Barrie Montoya MD Work Phone: [facility] 08-01-2024 11:24-0400 Body weight 131.09 kg Barrie Montoya MD Work Phone: [facility] 08-01-2024 11:24-0400 Diastolic blood pressure 93 mm[Hg] Barrie Montoya MD Work Phone: [facility] 08-01-2024 11:24-0400 Heart rate 73 /min Barrei Montoya MD Work Phone: [facility] 08-01-2024 11:24-0400 Systolic blood pressure 182 mm[Hg] Barrie Montoya MD Work Phone: [facility] 07-20-2024 08:27-0400 Body height 182.9 cm Blaise Brown DPM Work Phone: [facility] 07-20-2024 08:27-0400 Body mass index (BMI) [Ratio] 26.04 kg/m2 Blaise Brown DPM Work Phone: [facility] 07-20-2024 08:27-0400 Body weight 87.09 kg Blaise Brown DPM Work Phone: [facility] 07-20-2024 08:27-0400 Diastolic blood pressure 81 mm[Hg] Blaise Brown DPM Work Phone: [facility] 07-20-2024 08:27-0400 Heart rate 75 /min Blaise Brown DPM Work Phone: [facility] 07-20-2024 08:27-0400 Respiratory rate 18 /min Blaise Brown DPM Work Phone: [facility] 07-20-2024 08:27-0400 Systolic blood pressure 130 mm[Hg] Blaise Brown DPM Work Phone: [facility] 07-06-2024 08:27-0400 Body height 182.9 cm Blaise Brown DPM Work Phone: [facility] 07-06-2024 08:27-0400 Body mass index (BMI) [Ratio] 26.04 kg/m2 Blaise Brown DPM Work Phone: [facility] 07-06-2024 08:27-0400 Body weight 87.09 kg Blaise Brown DPM Work Phone: [facility] 07-06-2024 08:27-0400 Diastolic blood pressure 81 mm[Hg] Blaise Brown DPM Work Phone: [facility] 07-06-2024 08:27-0400 Heart rate 77 /min Blaise Dao DPM Work Phone: [facility] 07-06-2024 08:27-0400 Systolic blood pressure 128 mm[Hg] Blaise Chicas DPM Work Phone: [facility] 10-14-2023 14:33-0500 Diastolic blood pressure 70 mm[Hg] Nereyda Patricia [facility] 10-14-2023 14:33-0500 Mean blood pressure 93 mm[Hg] Nereyda Patricia [facility] 10-14-2023 14:33-0500 Systolic blood pressure 138 mm[Hg] Nereyda Patricia [facility] 10-14-2023 14:18-0500 Blood Pressure Location Nereyda Patricia [facility] 10-14-2023 14:18-0500 Body temperature 97.88 [degF] Nereyda Patricia [facility] 10-14-2023 14:18-0500 Diastolic blood pressure 73 mm[Hg] Nereyda Patricia [facility] 10-14-2023 14:18-0500 Heart rate 91 /min Nereyda Patricia [facility] 10-14-2023 14:18-0500 Systolic blood pressure 143 mm[Hg] Nereyda Patricia [facility] 10-01-2023 12:13-0500 Diastolic blood pressure 66 mm[Hg] Nereyda Patricia [facility] 10-01-2023 12:13-0500 Mean blood pressure 104 mm[Hg] Nereyda Patricia [facility] 10-01-2023 12:13-0500 Systolic blood pressure 179 mm[Hg] Nereyda Patricia [facility] 10-01-2023 12:10-0500 Blood Pressure Location Nereyda Patricia [facility] 10-01-2023 12:10-0500 Body temperature 98.42 [degF] Nereyda Patricia [facility] 10-01-2023 12:10-0500 Diastolic blood pressure 77 mm[Hg] Nereyda Patricia [facility] 10-01-2023 12:10-0500 Heart rate 81 /min Nereyda Patricia [facility] 10-01-2023 12:10-0500 Respiratory rate 14 /min Nereyda Patricia [facility] 10-01-2023 12:10-0500 Systolic blood pressure 168 mm[Hg] Nereyda Patricia [facility] 06-10-2023 10:43-0400 Diastolic blood pressure 64 mm[Hg] Nereyda Patricia [facility] 06-10-2023 10:43-0400 Heart rate 76 /min Nereyda Patricia [facility] 06-10-2023 10:43-0400 Respiratory rate 16 /min Nereyda Patricia [facility] 06-10-2023 10:43-0400 SaO2% (BldA) [Mass fraction] 95 % Nereyda Patricia [facility] 06-10-2023 10:43-0400 Systolic blood pressure 121 mm[Hg] Nereyda Patricia [facility] 04-13-2023 14:19-0400 Diastolic blood pressure 70 mm[Hg] Nereyda Patricia [facility] 04-13-2023 14:19-0400 Mean blood pressure 95 mm[Hg] Nereyda Patricia [facility] 04-13-2023 14:19-0400 Systolic blood pressure 146 mm[Hg] Nereyda Patricia [facility] 04-13-2023 14:15-0400 Blood Pressure Location Nereyda Patricia [facility] 04-13-2023 14:15-0400 Body temperature 97.7 [degF] Nereyda Patricia [facility] 04-13-2023 14:15-0400 Diastolic blood pressure 87 mm[Hg] Nereyda Patricia [facility] 04-13-2023 14:15-0400 Heart rate 70 /min Nereyda Patricia [facility] 04-13-2023 14:15-0400 Systolic blood pressure 150 mm[Hg] Nereyda Patricia [facility] 06-09-2022 10:02-0400 Body temperature 96.98 [degF] Nereyda Patricia [facility] 06-09-2022 10:02-0400 Diastolic blood pressure 75 mm[Hg] Nereyda Patricia [facility] 06-09-2022 10:02-0400 Heart rate 72 /min Nereydabruce JoyaPatricia [facility] 06-09-2022 10:02-0400 SaO2% (BldA) [Mass fraction] 97 % Nereydabruce JoyaPatricia [facility] 06-09-2022 10:02-0400 Systolic blood pressure 139 mm[Hg] Nereydabruce JoyaPatricia [facility] 05-11-2022 11:30-0400 Diastolic blood pressure 102 mm[Hg] Bender SALAM [facility] 05-11-2022 11:30-0400 Heart rate 86 /min Bender SALAM [facility] 05-11-2022 11:30-0400 Respiratory rate 15 /min Bender SALAM [facility] 05-11-2022 11:30-0400 SaO2% (BldA) [Mass fraction] 95 % Bender SALAM [facility] 05-11-2022 11:30-0400 Systolic blood pressure 172 mm[Hg] Bender SALAM [facility] 05-11-2022 11:15-0400 Diastolic blood pressure 88 mm[Hg] Bender SALAM [facility] 05-11-2022 11:15-0400 Heart rate 86 /min Bender SALAM [facility] 05-11-2022 11:15-0400 Respiratory rate 18 /min Bender SALAM [facility] 05-11-2022 11:15-0400 SaO2% (BldA) [Mass fraction] 97 % Bender SALAM [facility] 05-11-2022 11:15-0400 Systolic blood pressure 170 mm[Hg] Bender SALAM [facility] 05-11-2022 11:10-0400 Diastolic blood pressure 108 mm[Hg] Bender SALAM [facility] 05-11-2022 11:10-0400 Heart rate 85 /min Bender SALAM [facility] 05-11-2022 11:10-0400 Respiratory rate 14 /min Bender SALAM [facility] 05-11-2022 11:10-0400 SaO2% (BldA) [Mass fraction] 97 % Bender SALAM [facility] 05-11-2022 11:10-0400 Systolic blood pressure 157 mm[Hg] Bender SALAM [facility] 05-11-2022 11:02-0400 Body temperature 97.34 [degF] Bender SALAM [facility] 05-11-2022 10:27-0400 Blood Pressure Location Bender SALAM [facility] 05-11-2022 10:23-0400 Blood Pressure Location Bender SALAM [facility] 05-11-2022 10:23-0400 Body temperature 98.24 [degF] Bender SALAM [facility] 03-31-2022 09:53-0400 Blood Pressure Location Nereyda Patricia [facility] 03-31-2022 09:53-0400 Body temperature 97.7 [degF] Nereyda Gomez [facility] 03-31-2022 09:53-0400 Diastolic blood pressure 72 mm[Hg] Nereyda Gomez [facility] 03-31-2022 09:53-0400 Heart rate 73 /min Nereyda Gomez [facility] 03-31-2022 09:53-0400 SaO2% (BldA) [Mass fraction] 96 % Nereyda Gomez [facility] 03-31-2022 09:53-0400 Systolic blood pressure 129 mm[Hg] Nereyda Gomez [facility] Encounters Encounter Date Encounter Type Care Provider Facility Start: 11-06-2024 End: 11-06-2024 ambulatory Mejia SINGH Facility:[facility] Start: 11-06-2024 End: 11-06-2024 Patient encounter procedure Mejia SINGH [facility] Start: 11-02-2024 End: 11-02-2024 ambulatory MARQUIS NKANSAH-AMANKRA Facility:[facility] [place] Start: 11-02-2024 End: 11-02-2024 Patient encounter procedure MARQUIS NKANSAH-AMANKRA [facility] [place] Start: 10-30-2024 End: 10-30-2024 ambulatory Mejia SINGH Facility:[id number] Start: 10-25-2024 End: 10-25-2024 ambulatory MARQUIS NKANSAH-QIANRA Facility:[facility] Start: 10-23-2024 End: 10-23-2024 ambulatory MARQUIS LOUISE Facility:[facility] Start: 10-23-2024 End: 10-23-2024 Patient encounter procedure MARQUIS LOUISE [facility] Start: 10-02-2024 End: 10-02-2024 ambulatory MARQUIS LOUISE Facility:[facility] Start: 09-25-2024 End: 09-25-2024 ambulatory MARQUIS LOUISE Facility:[facility] Start: 09-25-2024 End: 09-25-2024 Patient encounter procedure MARQUIS LOUISE [facility] Start: 09-14-2024 End: 09-14-2024 Bamboo flowsheet Blaise Chicas DPM Work Phone: [facility] Start: 09-14-2024 End: 09-14-2024 Bamboo flowspatrick Chicas DPM Work Phone: [facility] Start: 09-14-2024 End: 09-14-2024 Patient encounter procedure Blaise Chicas DPM Work Phone: [facility] Comment on above: Verruca plantaris (P rimary Dx); Foot pain, right; Diabetes mellitus due to underlying condition with diabetic polyneuropathy, 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 Start: 08-14-2024 End: 08-17-2024 Telephone encounter Barrie Montoya MD Work Phone: [facility] Start: 08-08-2024 End: 08-08-2024 ambulatory MARQUIS JANINAANSAH-AMANKRA Facility:[facility] Start: 08-08-2024 End: 08-08-2024 Patient encounter procedure MARQUIS NEELY-AMJOVANIRA [facility] Start: 08-03-2024 End: 08-03-2024 Bamboo flowsheet Blaise Chicas DPM Work Phone: [facility] Start: 08-03-2024 End: 08-03-2024 Bamboo flowsheet Blaise Chicas DPM Work Phone: [facility] Start: 08-03-2024 End: 08-03-2024 Patient encounter procedure Blaise Chicas DPM Work Phone: [facility] Comment on above: Verruca plantaris (P rimary Dx); Foot pain, right; Xerosis cutis Start: 08-03-2024 End: 08-03-2024 ambulatory BLAISE CHICAS Not Available Start: 08-01-2024 End: 08-01-2024 Bamboo flowsheet Barrie Montoya MD Work Phone: [facility] Start: 08-01-2024 End: 08-01-2024 Bamboo flowsheet Barrie Montoya MD Work Phone: [facility] Start: 08-01-2024 End: 08-01-2024 Office outpatient visit 25 minutes Barrie Montoya MD Work Phone: [facility] Comment on above: Neurogenic pain (Jyothi kervin Dx); Benign essential tremor Start: 08-01-2024 End: 08-01-2024 ambulatory BARRIE MONTOYA Not Available Start: 07-20-2024 End: 07-20-2024 Bamboo flowsheet Blaise Chicas DPM Work Phone: [facility] Start: 07-20-2024 End: 07-20-2024 Bamboo flowsheet Blaise Chicas DPM Work Phone: [facility] Start: 07-20-2024 End: 07-20-2024 Patient encounter procedure Blaise Chicas DPM Work Phone: [facility] Comment on above: Verruca plantaris (P rimary Dx); Foot pain, right; Xerosis cutis Start: 07-20-2024 End: 07-20-2024 ambulatory BLAISE CHICAS Not Available Start: 07-06-2024 End: 07-06-2024 Bamboo flowsheet Blaise Chicas DPM Work Phone: [facility] Start: 07-06-2024 End: 07-06-2024 Bamboo flowsheet Blaise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 metoclopramide (Reglan) 5 MG tablet, every 12 (twelve) hours, Disp: , Rfl: NIFEdipine XL (Procardia XL) 60 MG 24 hr tablet, Take 1 tablet twice a day by oral route for 90 days., Disp: , Rfl: omeprazole (PriLOSEC) 20 MG [...] DAY DIRECTED, Disp: , Rfl: primidone (Mysoline) 50 MG tablet, 1 tab TID, Disp: 270 tablet, Rfl: 3 Probiotic Product (Align) capsule, TAKE 1 CAPSULE BY MOUTH DAILY AFTER COMPLETING THE ANTIBIOTICS COURSE, Disp: , Rfl: tamsulosin (Flomax) 0.4 MG 24 hr capsule, Take 1 capsule every day by oral route for 90 days., Disp: , Rfl: Social History: Social History Socioeconomic History Marital status: Spouse name: Not on file Number of children: Not on file Years of education: Not on file Highest education level: Not on file Occupational History Not on file Tobacco Use Smoking status: Unknown Smokeless tobacco: Not on file Vaping Use Vaping status: Unknown Substance and Sexual Activity Alcohol use: Never Comment: caffeine 1-2 cups/day Drug use: Never Sexual activity: Defer Other Topics Concern Not on file Social History Narrative Not on file Social Determinants of Health Financial Resource Strain: Not on file Food Insecurity: Not on file Transportation Needs: Not on file Physical Activity: Not on file Stress: Not on file Social Connections: Not on file Intimate Partner Violence: Unknown (01/06/2024) [facility] [place] [facility] Fear of Current [...] and negative PT pedal pulses NEURO: 5.07 [employer] monofilament test diminished to digits and forefoot bilaterally 125Hz tuning fork diminished to 1st MPJ bilaterally ORTHO: Positive pain on palpation to nails 1 through 10 Minimal pain on palpation of right foot lesion ASSESSMENT 1. Verruca plantaris 2. Foot pain, right 3. Xerosis cutis PLAN Application of salinocaine acid medication to [...] with creams feet and advocated twice daily Blaise A Brown, DPM documented in this encounterFreeman Orthopaedics & Sports [id number] History of Present illness Narrative* Barrie Montoya MD - 08/01/2024 11:49 AM EDTAssociated Problem(s): JOSIAH (obstructive sleep apnea) Get original PSG (only received PAPT). * Barrie Montoya MD - 08/01/2024 11:49 AM EDTAssociated Problem(s): Cervical paraspinal muscle spasm (Continue home PT.) * Barrie Montoya MD - 08/01/2024 11:48 AM EDTAssociated Problem(s): Neurogenic pain Add duloxetine 20 hs. May try 40; call if more effective. * Barrie Montoya MD - 08/01/2024 11:44 AM EDTAssociated Problem(s): Benign essential tremor Incr current supply to 50/50/100. Send in PRM 250, 1/2 pill bid (verbally instructed that, if too sleepy with this AM dose, take 1/4 1/4 1/2 pill). * Barrie Montoya MD - 08/01/2024 11:30 AM EDT Images from the original note were not included. Outpatient Progress Note Prev Appt: Visit date not found Chief Complaint Patient presents with Tremors Assessment and Plan - Benign essential tremor Incr current supply to 50/50/100. Send in PRM 250, 1/2 pill bid (verbally instructed that, if too sleepy with this AM dose, take 1/4 1/4 1/2 pill). Neurogenic pain Add duloxetine 20 hs. May try 40; call if more effective. Cervical paraspinal muscle spasm (Continue home PT.) JOSIAH (obstructive sleep apnea) Get original PSG (only received PAPT). No orders of the defined types were placed in this encounter. Follow-Up - Follow up in about 2 months (around 10/01/2024). History of Present Illness, Associated Treatments and Results - Dx (JOSIAH) Tx BiPAP @ 31/10 AEs Hx JOSIAH - (Per Dr. John, [facility]). Failed Semeiology Circadian Noct oxim PSG _ ([place]) - _ PAPT ([place]) - AHI=8.1 @ 31/10 (max pressure) MSLT MWT Imaging Testing Surgery Dx TREMOR Tx PRM 50 tid (+ labetalol --card) AEs Hx Worsening, only somewhat controlled. Interested in increase. Onset Semeiology Tremor R>>L hand, often at rest. Handwriting messy, smaller. Imaging Testing Surgery Failed Sinemet 25/100 bid (ineff) Dx PN / PAIN / (B12) / B6 Tx (NOW OFF GBP 1200 qpm (written for 600 tid) --PCP) B complex (for B6) (B12 inj --PCP) AEs Hx Burning all the time since stopping GBP. Onset Semeiology Numbness constantly. Burning when walking. Imaging Testing Labs - 576/16/475/16, was 285/16/503/14.1 ... B6=29, was 6.5L Surgery Failed GBP 1800 (somn) Dx MYOFASCIITIS Tx Home PT AEs Hx No complaints. Onset Semeiology Imaging Testing Surgery Failed Physical Exam - General appearance, mentation, extraocular movements, facial strength and movement, hearing, upper and lower extremity strength and tone, sensation to gross testing, coordination, and gait are normalor at baseline unless noted below. HEENT - ___, unchanged: ___, orig: ___ MS - ___, unchanged: ___, orig: ___ CNN - ___, unchanged: ___, orig: ___ Motor - ___, unchanged: ___, orig: ___ Sens - ___, unchanged: Vibr, temp loss distal LEs, orig: ___ Reflex - ___, unchanged: AJ 0B, orig: ___ Coord - ___, unchanged: Tremor R>>L hand dane end of travel ... Handwriting messy but not small, orig: ___ Gait - ___, unchanged: Somewhat wide ... Short steps, hunched ... A bit atactic on turn, orig: ___ Vestib - ___, unchanged: ___, orig: ___ MSK - Spasm - SCMs Tr C mild, unchanged: ___, orig: ___ Other - ___, unchanged: ___, orig: ___ Vital Signs - Visit Vitals BP (!) 182/93 Pulse 73 Ht 6' Wt 289 lb BMI 39.20 kg/m Smoking Status Unknown BSA 2.58 m Review of Systems - . Const: Denies appetite change, fever, chills. Allergy: Denies medication reaction. Ocular: Denies visual acuity change. ENT: Denies hearing change. Endoc: Denies weight loss. Resp: Denies dyspnoea, wheezing. Cardiac: Denies angina, palpitations. GI: Denies nausea, vomiting. Haem: Denies bleeding. : Denies incontinence. MSK: Denies arthralgias, joint oedema. Derm: Denies rash, hair loss. Neuro: Denies ataxia, tremor. Also see HPI for elements of ROS documented therein and for details of positive findings, which shall supersede the foregoing. PMH, PSH, Allergies, FH, SH - Past Medical History: Diagnosis Date Actinic keratosis Basal cell carcinoma COVID-19 11/22/2020 Diabetes (CMS/HCC) Past Surgical History: Procedure Laterality Date BACK SURGERY 1988 CHOLECYSTECTOMY 1998 GALL BLADDER HERNIA REPAIR 1979 RENAL ARTERY STENT 2016 stents kidney Allergies Allergen Reactions Iodinated Contrast Media Other Reaction(s): Unknown Nitroglycerin Other Reaction(s): Not available, Unknown Statins Other Reaction(s): elevated liver enzymes, Unknown Family History Problem Relation Name Age of Onset Cancer Mother Heart disease Father Melanoma Neg Hx Outpatient Encounter Medications as of 08/01/2024 Medication Sig Dispense Refill acyclovir (Zovirax) 400 MG tablet Take 1 tablet twice a day by oral route for 30 days. alogliptin (Nesina) 25 MG tablet Take 1 tablet by mouth in the morning. ALPRAZolam (Xanax) 0.25 MG tablet every 12 (twelve) hours. apixaban (Eliquis) 2.5 MG tablet every 12 (twelve) hours. aspirin 81 MG EC tablet Take 1 tablet by mouth in the morning. B-Complex tablet as directed Orally cholecalciferol (Vitamin D-[address]) 25 MCG (1000 UT) tablet Take 2,000 Units by mouth in the morning. cloNIDine (Catapres) 0.1 MG tablet Take 1 tablet by mouth in the morning and 1 tablet before bedtime. dicyclomine (Bentyl) 10 MG capsule Take 1 capsule every day by oral route. empagliflozin (Jardiance) 25 MG Take 1 tablet by mouth in the morning. ezetimibe (Zetia) 10 MG tablet Take 1 tablet by mouth in the morning. ezetimibe (Zetia) 10 MG tablet Take 10 mg by mouth in the morning. ferrous sulfate 325 (65 Fe) MG tablet Take 1 tablet by mouth in the morning and 1 tablet before bedtime. glimepiride (Amaryl) 4 MG tablet Take 1 tablet by mouth in the morning and 1 tablet before bedtime. KLOR-CON 20 MEQ ER tablet Take 1 tablet by mouth in the morning and 1 tablet before bedtime. labetalol (Normodyne) 300 MG tablet 3 (three) times a day Lasix 20 MG tablet 1 (one) time each day at the same time. levoFLOXacin (Levaquin) 750 MG tablet 1 (one) time each day at the same time. metoclopramide (Reglan) 5 MG tablet every 12 (twelve) hours omeprazole (PriLOSEC) [address] capsule Take 2 capsules every day by oral route for 90 days. pioglitazone (Actos) 30 MG tablet TAKE 1 TABLET BY MOUTH EVERY DAY Oral for 90 pioglitazone (Actos) 45 MG tablet TAKE 1 TABLET BY MOUTH EVERY DAY for 90 prednisoLONE acetate (Pred-Forte) 1 % ophthalmic suspension INSTILL 1 DROP INTO RIGHT EYE 3 TIMES ADAY DIRECTED primidone (Mysoline) 50 MG tablet 1 tab TID 270 tablet 3 tamsulosin (Flomax) 0.4 MG 24 hr capsule Take 1 capsule every day by oral route for 90 days. [DISCONTINUED] Bacillus Coagulans-Inulin (Align Prebiotic-Probiotic) 5-1.25 MG- GM chewable tablet 1capsule 1 (one) time each day at the same time. [DISCONTINUED] budesonide-formoterol (Symbicort) 80-4.5 MCG/ACT inhaler 1 (one) time each day at the same time. [DISCONTINUED] hydrALAZINE (Apresoline) 100 MG tablet Take 1 tablet twice a day by oral route for 90 days. [DISCONTINUED] metFORMIN (Glucophage) 500 MG tablet TAKE 1 TABLET BY MOUTH EVERY DAY FOR 30 DAYS for 30 [DISCONTINUED] NIFEdipine XL (Procardia XL) 60 MG 24 hr tablet Take 1 tablet twice a day by oral route for 90 days. [DISCONTINUED] Probiotic Product (Align) capsule TAKE 1 CAPSULE BY MOUTH DAILY AFTER COMPLETING THEANTIBIOTICS COURSE No facility-administered encounter medications on file as of 08/01/2024. Barrie Montoya M.D. documented in this encounterFreeman Orthopaedics & Sports [id number] History of Present illness Narrative* Blaise Chicas, DPM - 07/20/2024 8:30 AM EDT Patient: Nadir Hamilton Kirit : 1940 PCP: Van Youssef MD SUBJECTIVE Nadir Beth 84 y.o. presents today for follow up of skin lesion/neoplasm of unknown origin to the right foot Pt states that previous treatment of acid tx with some improvement Pt rates pain the pain on a 1-10 scale an intensity of 1 Pt presents today for followup. Patient is DM2 Allergies: Allergies Allergen Reactions Iodinated Contrast Media [...] tablet, as directed Orally, Disp: , Rfl: Bacillus Coagulans-Inulin (Align Prebiotic-Probiotic) 5-1.25 MG-GM chewable tablet, 1 capsule 1 (one) time each day at the same time., Disp: , Rfl: budesonide-formoterol (Symbicort) 80-4.5 MCG/ACT inhaler, 1 (one) time each day at the same time., Disp: , Rfl: cholecalciferol (Vitamin D-[address]) 25 MCG (1000 UT) tablet, Take 2,000 Units by mouth in the morning., Disp: , Rfl: cloNIDine (Catapres) 0.1 MG tablet, Take 1 tablet by mouth in the morning and 1 tablet before bedtime., Disp: , Rfl: dicyclomine (Bentyl) 10 MG capsule, Take 1 capsule every day by oral route., Disp: , Rfl: empagliflozin (Jardiance) 25 MG, Take 1 tablet [...] 1 tablet before bedtime., Disp: , Rfl: hydrALAZINE (Apresoline) 100 MG tablet, Take 1 tablet twice a day by oral route for 90 days., Disp:, Rfl: KLOR-CON 20 MEQ ER tablet, Take 1 tablet by mouth in the morning and 1 tablet before bedtime., Disp: , Rfl: labetalol (Normodyne) 300 MG tablet, TAKE 1/2 TABLET BY MOUTH 2 TIMES DAILY, Disp: , Rfl: Lasix 20 MG tablet, 1 (one) time each day at the same time., Disp: , Rfl: levoFLOXacin (Levaquin) 750 MG tablet, 1 (one) time each day at the same time., Disp: , Rfl: metFORMIN (Glucophage) 500 MG tablet, TAKE 1 TABLET BY MOUTH EVERY DAY FOR 30 DAYS for 30, Disp: , Rfl: metoclopramide (Reglan) 5 MG tablet, every 12 (twelve) hours, Disp: , Rfl: NIFEdipine XL (Procardia XL) 60 MG 24 hr tablet, Take 1 tablet twice a day by oral route for 90 days., Disp: , Rfl: omeprazole (PriLOSEC) 20 MG [...] DAY DIRECTED, Disp: , Rfl: primidone (Mysoline) 50 MG tablet, 1 tab TID, Disp: 270 tablet, Rfl: 3 Probiotic Product (Align) capsule, TAKE 1 CAPSULE BY MOUTH DAILY AFTER COMPLETING THE ANTIBIOTICS COURSE, Disp: , Rfl: tamsulosin (Flomax) 0.4 MG 24 hr capsule, Take 1 capsule every day by oral route for 90 days., Disp: , Rfl: Social History: Social History Socioeconomic History Marital status: Spouse name: Not on file Number of children: Not on file Years of education: Not on file Highest education level: Not on file Occupational History Not on file Tobacco Use Smoking status: Unknown Smokeless tobacco: Not on file Vaping Use Vaping status: Unknown Substance and Sexual Activity Alcohol use: Never Comment: caffeine 1-2 cups/day Drug use: Never Sexual activity: Defer Other Topics Concern Not on file Social History Narrative Not on file Social Determinants of Health Financial Resource Strain: Not on file Food Insecurity: Not on file Transportation Needs: Not on file Physical Activity: Not on file Stress: Not on file Social Connections: Not on file Intimate Partner Violence: Unknown (01/06/2024) [facility] [place] [facility] Fear of Current [...] at the right sub 2nd metatarsal measuring 0.3cm x 0.2cm. VASC: Negative DP and negative PT pedal pulses NEURO: 5.07 [employer] monofilament test diminished to digits and forefoot bilaterally 125Hz tuning fork diminished to 1st MPJ bilaterally ORTHO: Positive pain on palpation to nails 1 through 10 Minimal pain on palpation of right foot lesion ASSESSMENT 1. Verruca plantaris 2. Foot pain, right 3. Xerosis cutis PLAN Application of salinocaine acid medication to [...] with creams feet and advocated twice daily Patient to follow up in near future for surgical excision lesion in office Blaise Chicas DPM documented in this encounterFreeman Orthopaedics & Sports [id number] History of Present illness Narrative* Blaise Chicas DPM - 07/06/2024 8:40 AM EDT Patient: Nadir Beth : 1940 PCP: Van Youssef MD SUBJECTIVE Patient presents today for follow-up of dry skin and fissures to feet and has been using prescribedor recommended wvic-bdc-wczxyap cream with positive improvement. Patient presents today for follow up of skin lesion/neoplasm of unknown origin to the right foot Pt states that previous treatment of acid tx with some improvement Pt rates pain the pain on a 1-10 scale an intensity of. 7 Pt presents today for followup. Patient presents today with a CC of elongated, thick nails. Pt states nails have been elongated and thick for many years and cause pain with ambulation in shoegear. Pt has tried previous treatment with minimal relief. Pt presents today for nail care and treatment. Patient is DM2 Allergies: Allergies Allergen Reactions Iodinated Contrast Media [...] tablet, as directed Orally, Disp: , Rfl: Bacillus Coagulans-Inulin (Align Prebiotic-Probiotic) 5-1.25 MG-GM chewable tablet, 1 capsule 1 (one) time each day at the same time., Disp: , Rfl: budesonide-formoterol (Symbicort) 80-4.5 MCG/ACT inhaler, 1 (one) time each day at the same time., Disp: , Rfl: cholecalciferol (Vitamin D-[address]) 25 MCG (1000 UT) tablet, Take 2,000 Units by mouth in the morning., Disp: , Rfl: cloNIDine (Catapres) 0.1 MG tablet, Take 1 tablet by mouth in the morning and 1 tablet before bedtime., Disp: , Rfl: dicyclomine (Bentyl) 10 MG capsule, Take 1 capsule every day by oral route., Disp: , Rfl: empagliflozin (Jardiance) 25 MG, Take 1 tablet [...] 1 tablet before bedtime., Disp: , Rfl: hydrALAZINE (Apresoline) 100 MG tablet, Take 1 tablet twice a day by oral route for 90 days., Disp:, Rfl: KLOR-CON 20 MEQ ER tablet, Take 1 tablet by mouth in the morning and 1 tablet before bedtime., Disp: , Rfl: labetalol (Normodyne) 300 MG tablet, TAKE 1/2 TABLET BY MOUTH 2 TIMES DAILY, Disp: , Rfl: Lasix 20 MG tablet, 1 (one) time each day at the same time., Disp: , Rfl: levoFLOXacin (Levaquin) 750 MG tablet, 1 (one) time each day at the same time., Disp: , Rfl: metFORMIN (Glucophage) 500 MG tablet, TAKE 1 TABLET BY MOUTH EVERY DAY FOR 30 DAYS for 30, Disp: , Rfl: metoclopramide (Reglan) 5 MG tablet, every 12 (twelve) hours, Disp: , Rfl: NIFEdipine XL (Procardia XL) 60 MG 24 hr tablet, Take 1 tablet twice a day by oral route for 90 days., Disp: , Rfl: omeprazole (PriLOSEC) 20 MG [...] DAY DIRECTED, Disp: , Rfl: primidone (Mysoline) 50 MG tablet, 1 tab TID, Disp: 270 tablet, Rfl: 3 Probiotic Product (Align) capsule, TAKE 1 CAPSULE BY MOUTH DAILY AFTER COMPLETING THE ANTIBIOTICS COURSE, Disp: , Rfl: tamsulosin (Flomax) 0.4 MG 24 hr capsule, Take 1 capsule every day by oral route for 90 days., Disp: , Rfl: Social History: Social History Socioeconomic History Marital status: Spouse name: Not on file Number of children: Not on file Years of education: Not on file Highest education level: Not on file Occupational History Not on file Tobacco Use Smoking status: Unknown Smokeless tobacco: Not on file Vaping Use Vaping status: Unknown Substance and Sexual Activity Alcohol use: Never Comment: caffeine 1-2 cups/day Drug use: Never Sexual activity: Defer Other Topics Concern Not on file Social History Narrative Not on file Social Determinants of Health Financial Resource Strain: Not on file Food Insecurity: Not on file Transportation Needs: Not on file Physical Activity: Not on file Stress: Not on file Social Connections: Not on file Intimate Partner Violence: Unknown (01/06/2024) [facility] [place] [facility] Fear of Current [...] growth with thin shiny atrophic skin bilaterally. Positive Dry and scaly skin to bilateral feet with small fissures to heels with negative erythema or drainage +1 pitting edema to bilateral ankles Nummular lesion measuring at the right sub 2nd metatarsal measuring 0.3cm x 0.3cm. VASC: Negative DP and negative PT pedal pulses NEURO: 5.07 [employer] monofilament test diminished to digits and forefoot bilaterally 125Hz tuning fork diminished to 1st MPJ bilaterally ORTHO: Positive pain on palpation to nails 1 through 10 Minimal pain on palpation of right foot lesion ASSESSMENT 1. Verruca plantaris 2. Foot pain, right 3. Diabetes mellitus due to underlying condition with diabetic polyneuropathy, unspecified whether [place] [facility]) 4. Onychomycosis 5. Toe pain, bilateral 6. Xerosis cutis PLAN Application of salinocaine acid medication to [...] with creams feet and advocated twice daily Discussed proper foot care with patient today. Debride nails in length and thickness digits 1 through 10 Patient to follow up in near future for surgical excision lesion in office Blaise Chicas DPM documented in this encounterFreeman Orthopaedics & Sports [id number] NoteComGallup [facility] Patient: Nadir Beth; 84 y.o. Visit date: 07/05/24 Reason for today's visit: Follow up for CKD stage 3, Hypertension, Edema/ Fluid overload, and Electrolytes disturbances SUBJECTIVE: BACKGROUND: Nadir Beth is a 84 y.o. male has a past medical history of Atrial fibrillation ([facility]), CHF (congestive heart failure) ([facility]), Chronic kidney disease, COPD (chronic obstructive pulmonary disease) ([facility]), Coronary artery disease, Diabetes mellitus ([facility]), Heart valve disease, Hypertension, Pericardial effusion, and Sleep apnea. History of paroxysmal atrial fibrillation maintained on anticoagulation with Eliquis, aortic stenosis, renal artery stenosis, and hypertension. He had stenting of the left renal artery from the left radial approach on 05/01/2015 (Express SD 6 mm x 18 mm stent). He was admitted to the [facility] in August 2022 due to hyponatremia, [...] crush or chew. p (more content not included)...[facility]07-24-2024 Note Attestation signed by Ruthie Linda MD at 06/07/2024 7:40 PM I saw, interviewed, examined and evaluated the patient with Nephrology fellow Dr. Jeff Reyes. I participated in the medical management of the patient. I reviewed the fellow's note and agree with the fellow's documentation in the note. Ruthie Linda MD Faculty, Division of Nephrology, Department of Medicine, [facility] Sciences. [facility] Patient: Nadir Beth; 84 y.o. Visit date: 06/07/24 Reason for today's visit: Follow up for CKD stage 3, Hypertension, Edema/ Fluid overload, and Electrolytes disturbances SUBJECTIVE: BACKGROUND: Nadir Beth is a 84 y.o. male has a past medical history of Atrial fibrillation ([facility]), CHF (congestive heart failure) ([facility]), Chronic kidney disease, COPD (chronic obstructive pulmonary disease) ([facility]), Coronary artery disease, Diabetes mellitus ([facility]), Heart valve disease, Hypertension, Pericardial effusion, and Sleep apnea. History of paroxysmal atrial fibrillation maintained on anticoagulation with Eliquis, aortic stenosis, renal artery stenosis, and hypertension. He had stenting of the left renal artery from the left radial approach on 05/01/2015 (Express SD 6 mm x 18 mm stent). He was admitted to the [facility] in August 2022 due to hyponatremia, [...] cholecalciferol (Vitamin D3) 25 (more content not included)...[facility]07-22-2024 NoteUT Cardiology - [facility] Subjective Nadir Beth is a [...] diuretic therapy. He was admitted to the [facility] in August 2022 due to hyponatremia, hyperkalemia and acute kidney injury, leukocytosis secondary to COVID-19 causing dehydration. I saw him on 05/24/2023 and the office and he had significant evidence of volume overload by exam and echocardiogram. I intensified his diuretic regimen. He ended up getting admitted to the [facility] with acute heart failure exacerbation and [...] and 2+ o (more content not included)... [facility]04-19-2024 NoteUT Cardiology - [facility] Subjective Nadir Beth is a [...] extremity edema. He was admitted to the [facility] in August 2022 due to hyponatremia, hyperkalemia and acute kidney injury, leukocytosis secondary to COVID-19 causing dehydration. I saw him on 05/24/2023 and the office and he had significant evidence of volume overload by exam and echocardiogram. I intensified his diuretic regimen. He ended up getting admitted to the [facility] with acute heart failure exacerbation and [...] tenderness. Musculoskeletal: General: N (more content not included)...[facility] 11-17-2023 Note Attestation signed by Ruthie Linda MD at 11/21/2023 6:55 PM I saw, interviewed, examined and evaluated the patient with Nephrology fellow, Dr. Dana Aparicio. I participated in the medical management of the patient. I reviewed the fellow's note and agree with the fellow's documentation in the note. Ruthie Linda MD Faculty, Division of Nephrology, Department of Medicine, [facility]. [facility] Patient: Nadir Beth; 83 y.o. Visit date: 11/17/23 Reason for today's visit: Follow up for CKD stage 3, Hypertension, Edema/ Fluid overload, and Electrolytes disturbances SUBJECTIVE: BACKGROUND: Nadir Beth is a 83 y.o. male has a past medical history of Atrial fibrillation ([facility]), CHF (congestive heart failure) ([facility]), Chronic kidney disease, COPD (chronic obstructive pulmonary disease) ([facility]), Coronary artery disease, Diabetes mellitus ([facility]), Heart valve disease, Hypertension, Pericardial effusion, and Sleep apnea. History of paroxysmal atrial fibrillation maintained on anticoagulation with Eliquis, aortic stenosis, renal artery stenosis, and hypertension. He had stenting of the left renal artery from the left radial approach on 05/01/2015 (Express SD 6 mm x 18 mm stent). He was admitted to the [facility] in August 2022 due to hyponatremia, [...] person, place, and time (more content not included)...[facility]11-30-2023 Hospital Discharge instructions Patient Education 10/14/2023 15:05:48 [...] as fried or sweet foods. These include malian fries, hamburgers, cookies, candies, and soda. Drink enough fluid to keep your urine pale yellow. General instructions Exercise regularly or as told by your health care provider. Try to do 150 minutes of moderate exercise each week. Use the bathroom when you have the urge to go. Do not hold it in. Take jbuq-qvj-iaxbmdx and prescription medicines only as told by [...] to keep your urine pale yellow. Take rgom-cwu-ttkcpat and prescription medicines only as told by your health care provider. This includes any fiber supplements. This information is not intended to replace advice given to you by your health care provider. Make sure you discuss any questions you have with your health care provider. Document Revised: 09/18/2020 Document Reviewed: 09/18/2020 Elsevier Patient Education 2022 [employer]. Follow Up Care 10/01/2023 12:57:46 With:Nereyda Gomez CNP Address: When:[address] [facility] 11-17-2023 Hospital Discharge instructions [...] Bulgur wheat. Millet. Quinoa. Bran muffins. Popcorn. [place]ongaloo wafer crackers. Meats and other proteins Pillager beans, kidney beans, and mendez beans. Soybeans. [...] Cream cheese. Sour cream. Fats and oils Loop. Beverages Soft drinks. Other foods Cakes and [...] provider. Document Revised: 03/06/2021 Document Reviewed: 03/06/2021 [employer] Patient Education 2022 [employer]. Follow Up Care 09/20/2023 08:43:45 With:Nereyda Gomez CNP Address:Unknown When: Unknown [facility] 11-17-2023 Evaluation + Plan note Future Scheduled Tests Laboratory* CBC w/ Auto Diff 10/01/23 * Comprehensive Metabolic Panel 10/01/23 * Thyroid Stimulating Hormone 10/01/23 [facility] 11-03-2023 NoteUT Cardiology - [facility] Subjective Nadir Joy Guallpariley is a 83 y.o. year old male [...] extremity edema. He was admitted to the [facility] in August 2022 due to hyponatremia, hyperkalemia and acute kidney injury, leukocytosis secondary to COVID-19 causing dehydration. I saw him on 05/24/2023 and the office and he had significant evidence of volume overload by exam and echocardiogram. I intensified his diuretic regimen. He ended up getting admitted to the [facility] with acute heart failure exacerbation and [...] Allergies Allergen Reactions Iodinated Contrast Media Nitroglycerin Wwsjmej-Kav-Hey Reductase Inhibitors Medications Current Outpatient Medications: (more content not included)...[facility]10-17-2023 NotePatient: Nadir Beth Procedure Information Date/Time: 08/31/23 [...] products discussed with patient who. [facility] Subjective Nadir Beth is [...] extremity edema. He was admitted to the [facility] in August 2022 due to hyponatremia, hyperkalemia and acute kidney injury, leukocytosis secondary to COVID-19 causing dehydration. I saw him on 05/24/2023 and the office and he had significant evidence of volume overload by exam and echocardiogram. I intensified his diuretic regimen. He ended up getting admitted to the [facility] with acute heart failure exacerbation and [...] Allergies Allergen Reactions Iodinated Contrast Media Nitroglycerin Yusdrsu-Vag-Eas Reductase Inhibitors Medications Current Outpatient Medications: acyclovir [...] tablet every day by (more content not included)...[facility]07-27-2023 Hospital Discharge instructions Patient Education 06/10/2023 10:41:11 [...] hard liquor (44 mL). General instructions Take knnm-tte-nbiibnp and prescription medicines only as told by [...] provider. Document Revised: 02/19/2021 Document Reviewed: 02/19/2021 [employer] Patient Education 2022 [employer]. Follow Up Care 04/13/2023 14:39:27 With:Nereyda Gomez CNP Address: When:[address] [facility] 05-30-2023 Hospital Discharge instructions [...] including vitamins, herbs, eye drops, creams, and aben-pkg-irgjwvb medicines. Any problems you or family members [...] provider tells you to take them. Taking vchl-hsr-qvqjfze medicines, vitamins, herbs, and supplements. General instructions [...] provider. Document Revised: 10/26/2022 Document Reviewed: 06/24/2022 [employer] Patient Education 2022 [employer]. Follow Up Care 04/09/2023 11:27:16 With:Nereyda Gomez CNP Address: When:[address] [facility] 09-03-2022 NoteEXAM: [place] CHANI [...] Electronically authenticated by: PREETI ROBERTS Date: 2022-07-18 09:05[facility]07-26-2022 Hospital Discharge instructions Patient Education 06/09/2022 [...] per serving. Talk with a diet and agricultural extension specialist (dietitian) if you have questions about [...] Bulgur wheat. Millet. Quinoa. Bran muffins. Popcorn. Shongaloo wafer crackers. Meats and other proteins Pillager, kidney, and mendez beans. Soybeans. Split peas. [...] Cream cheese. Sour cream. Fats and oils Loop. Beverages Soft drinks. Other foods Cakes and [...] 11/01/2006 Document Revised: 09/05/2018 Document Reviewed: 09/05/2018 [employer] Patient Education 2020 [employer]. 06/09/2022 10:13:34 Hemorrhoids Hemorrhoids Hemorrhoids are swollen [...] 3 times a day. General instructions Take xpua-rln-nxqmedr and prescription medicines only as told by [...] 10/29/2001 Document Revised: 03/29/2020 Document Reviewed: 03/23/2019 [employer] Patient Education 2020 [employer] 06/09/2022 10:13:31 Diverticulosis Diverticulosis Diverticulosis is [...] overweight. Not getting enough exercise. Smoking. Taking sdzc-rga-levytyn pain medicines, like aspirin and ibuprofen. Having [...] health care provider or your diet and agricultural extension specialist (dietitian). ?Take a fiber supplement or probiotic, if your health care provider approves. Take qmia-jst-dnntifr and prescription medicines only as told by [...] 07/29/2005 Document Revised: 10/14/2018 Document Reviewed: 09/20/2017 [employer] Patient Education 2020 [employer]. 06/09/2022 10:13:30 Colon Polyps Colon Polyps Polyps [...] 07/28/2005 Document Revised: 02/16/2019 Document Reviewed: 02/16/2019 [employer] Patient Education 2019 [employer]. Follow Up Care 05/13/2022 14:18:17 With:Nereyda Gomez CNP Address: When:1 year only if needed [facility] [phone] Evaluation + Plan noteExtracted from: Title:Anesthesia post op endo Author:Jeffrey Gr MD Date:05/11/22 Plan Transfer/ Discharge: Patient can be discharged from PACU when criteria met. Condition good. Extracted from: Title:Anesthesia Pre-Op endo 2 Author:Jeffrey Gr MD Date:05/11/22 Plan [place] [employer] Anesthesi[employer] (ASA) physical status classification: [...] heart and lungs, allergic reactions, and .. [facility]06-27-2022 Hospital Discharge instructions Patient Education 05/11/2022 [...] 07/28/2005 Document Revised: 02/16/2019 Document Reviewed: 02/16/2019 [employer] Patient Education 2020 [employer]. 05/11/2022 11:13:39 Diverticulosis MAGR (CUSTOM) Diverticulosis Many [...] unsweetened, w/added ascorbic acid 1 cup 0.5 [place] 1 cup 0.7 Vegetables Cooked Green beans 1 cup 4.0 Carrots 1/2 cup sliced 2.3 Peas 1 cup 8.8 Potato (baked, with skin) 1 medium potato 3.8 Raw [place]ship (with peel) 1 cucumber 1.5 Lettuce 1 [...] 8.7 Peanuts 1/2 cup 7.9 Chart from [facility] 2013. SEEK IMMEDIATE MEDICAL [...] Information adapted from: ExitCare Patient Information 2009 Gyst. Informative 2012 [email or web address]/[email or web address] Follow Up Care 03/31/2022 10:27:32 With:Napoleon NOVA Address: [address] [place] [address] Business (1) When: Unknown Comments:office will call for follow up [facility]05-17-2022 Hospital Discharge instructions Patient Education 03/31/2022 [...] including vitamins, herbs, eye drops, creams, and wgrp-rtk-msonmml medicines. Any problems you or family members [...] 10/29/2001 Document Revised: 08/24/2018 Document Reviewed: 01/12/2017 [employer] Patient Education 2020 [employer] Follow Up Care 03/23/2022 12:11:50 With:Nereyda Gomez CNP Address: When:[address] [facility] Evaluation + Plan note Future Appointments Appointment Date:05/25/2022 08:45:00 AM Scheduled Provider: Location:[facility] Appointment Type:Surgery FT [facility] Evaluation + Plan note Future Appointments Appointment Date:06/10/2023 10:40:00 AM Scheduled Provider:Nereyda Gomez CNP Location:[facility] Appointment Type:[facility] Follow Up Future Scheduled Tests Laboratory* Fecal WBC Lactoferrin 04/13/23 * Giardia lamblia, Direct Detection EIA 04/13/23 * O & P Exam, Routine 04/13/23 * Clostridium Difficile PCR 04/13/23 * Enteric Panel by PCR 04/13/[address] [facility] Evaluation + Plan note Future Appointments Appointment Date:06/10/2023 10:40:00 AM Scheduled Provider:Nereyda Gomez CNP Location:[facility] Appointment Type:[facility] Follow Up Diagnostic Tests Pending * O & P Exam, Routine 04/15/23 * Giardia lamblia, Direct Detection EIA [facility]23 [facility]ments Appointment Date:09/13/2023 10:40:00 AM Scheduled Provider:Nereyda Gomez CNP Location:[facility] Appointment Type:[facility] Follow Up [facility] Evaluation + Plan note Future Appointments Appointment Date:10/14/2023 02:20:00 PM Scheduled Provider:Nereyda Gomez CNP Location:[facility] Appointment Type:[facility] Follow Up Future Scheduled Tests Laboratory* CBC w/ Auto Diff 10/01/23 * Comprehensive Metabolic Panel 10/01/23 * Thyroid Stimulating Hormone 10/01/[address] [facility] Evaluation + Plan note Future Appointments Appointment Date:12/09/2023 02:00:00 PM Scheduled Provider:Nereyda Gomez CNP Location:[facility] Appointment Type:[facility] Follow Up Future Scheduled Tests Laboratory* CBC w/ Auto Diff 10/01/23 * Comprehensive Metabolic Panel 10/01/23 * Thyroid Stimulating Hormone 10/01/[address] [facility] Evaluation + Plan note Future Appointments Appointment Date:10/26/2024 09:30:00 AM Scheduled Provider: Location:[facility] Appointment Type:URO Nurse Visit Appointment Date:12/04/2024 08:40:00 AM Scheduled Provider:MARQUIS LOUISE MD Location:[facility] Appointment Type:URO Office Visit Future Scheduled Tests Laboratory* CBC w/ Auto Diff 10/01/23 * Comprehensive Metabolic Panel 10/01/23 * Thyroid Stimulating Hormone 10/01/23 [facility] Evaluation + Plan note Future Appointments Appointment Date:11/06/2024 09:00:00 AM Scheduled Provider: Location:[facility] Appointment Type:URO Nurse Visit Appointment Date:12/04/2024 08:40:00 AM Scheduled Provider:MARQUIS LOUISE MD Location:[facility] Appointment Type:URO Office Visit Future Scheduled Tests Laboratory* CBC w/ Auto Diff 10/01/23 * Comprehensive Metabolic Panel 10/01/23 * Thyroid Stimulating Hormone 10/01/23 [facility] Evaluation + Plan note Future Appointments Appointment Date:12/04/2024 08:40:00 AM Scheduled Provider:MARQUIS LOUISE MD Location:[facility] Appointment Type:URO Office Visit Future Scheduled Tests Laboratory* CBC w/ Auto Diff 10/01/23 * Comprehensive Metabolic Panel 10/01/23 * Thyroid Stimulating Hormone 10/01/23 [facility] evaluation note* Diagnosis Melanocytic nevus of trunk- [...] underlying condition with diabetic polyneuropathy, 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 (CMS/HCC) Pain due to onychomycosis of toenails of both feet documented in this encounter [facility] Healthcare[facility] note* Diagnosis Xerosis cutis- Primary Other specified disease of sebaceous glands Verruca plantaris Plantar wart Foot pain, right Pain in soft tissues of limb Diabetes mellitus due to underlying condition with diabetic polyneuropathy, unspecified whether [place] insulin use (CMS/HCC) Onychomycosis Dermatophytosis of nail Toe pain, bilateral documented in this encounter [facility] HealthcareEvaluation note* Diagnosis Verruca plantaris- Primary Plantar wart Foot pain, right Pain in soft tissues of limb Xerosis cutis Other specified disease of sebaceous glands documented in this encounter [facility] HealthcareEvaluation note* Diagnosis Neurogenic pain- Primary Benign essential tremor Essential and other specified forms of tremor documented in this encounter [facility] HealthcareHospital course Narrative No data available for this section [facility] Hospital Discharge instructions No data available for this section [facility] data available for this section [facility] Summary Purpose Family History No Family [...] and content) DATE CREATED AUTHOR 02/09/2019 [facility] DATE CREATED AUTHOR AUTHOR'S ORGANIZ ATION 03/28/2023 [facility] DATE CREATED AUTHOR AUTHOR'S ORGANIZ ATION 07/12/2024 [facility] DATE CREATED AUTHOR AUTHOR'S ORGANIZ ATION 09/15/2024 [facility] EPIC DATE CREATED AUTHOR AUTHOR'S ORGANIZ ATION [facility]20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 Relationship Specialty Start Date End Date Van Youssef MD [address] [facility] [place] [address] PCP - General Family Medicine 12/02/23 Arc Air Operator Relationship Specialty Start Date End Date Van Youssef MD [address] [facility] [place] [address] PCP - General Family Medicine 12/02/23 Arc Air Operator Relationship Specialty Start Date End Date Van Youssef MD [address] [place] [facility] [place] [address] PCP - General Family Medicine 12/02/23 Arc Air Operator Relationship Specialty Start Date End Date Van Youssef MD [address] [facility] [place] [address] PCP - General Family Medicine 12/02/23 Arc Air Operator Relationship Specialty Start Date End Date Van Youssef MD [address] [facility] [place] [address] PCP - General Family Medicine 12/02/23 Arc Air Operator Relationship Specialty Start Date End Date Van Youssef MD [address] [facility] [place] [phone] PCP - General Family Medicine 12/02/23 Arc Air Operator Relationship Specialty Start Date End Date Van Youssef MD [address] [place] [address] PCP - General Family Medicine 12/02/23 Arc Air Operator Relationship Specialty Start Date End Date Van Youssef MD [address] [place] [address] PCP - General Family Medicine 12/02/23 Reason for Visit (unrecogniz ed section and content) Reason Comments Skin Check Reason Comments DM Foot Care DM Nails Reason Comments DM Foot Care Dm Nails Reason Comments Follow-up Rt lesion follow up Reason Comments Follow-up Rt lesions Reason Comments Tremors FOR RECORDS PERTAINING TO PATIENTS WHO ARE [...] BE BASED ON THE PRIMARY CLINICAL RECORDS. [facility]. provides no warranty or guarantee of the accuracy or completeness of information in this document.
[2024-11-10 12:13] LABS: Anion Gap 15.2; BUN Creatinine Ratio 12.7; Calcium 8.7 mg/dL (8.5-10.1); Carbon Dioxide 26.8 mmol/L (21.0-32.0); Chloride 103 mmol/L (98-107); Estimated GFR (African America 48 (>=60 mL/min/1.73m^2); Estimated GFR (Non-African Ame 40 (>=60 mL/min/1.73m^2); Glucose 344 mg/dL (74-106); Sodium 140 mmol/L (136-145)
== END 2024-11-10 11:14 | disposition home or self-care (01) ==
LOC: LAB 11:13
PROVIDERS: PCP Family Medicine; Visit Provider Internal Medicine Interventional Cardiology
DX: R60.9 Edema, unspecified (principal)
CPT/HCPCS: 36415; 80048

== ENCOUNTER 2024-12-22 08:14 | Outpatient (OUT) | payer MEDICARE, SELFPAY ==
[2024-12-22 08:31] LABS: Hemoglobin 12.1 g/dL (14.0-18.0)
[2024-12-22 08:58] LABS: Creatinine Urine Random 52.46 mg/dL (20.00-300.00); Protein Creatinine Ratio Urine 0.27; Total Protein Urine Random 14.3 mg/dL (<=11.9)
[2024-12-22 09:24] LABS: Albumin Level 3.3 g/dL (3.4-5.0); Anion Gap 13.5; BUN Creatinine Ratio 15.9; Calcium 8.7 mg/dL (8.5-10.1); Carbon Dioxide 28.1 mmol/L (21.0-32.0); Chloride 105 mmol/L (98-107); Estimated GFR (African America 51 (>=60 mL/min/1.73m^2); Estimated GFR (Non-African Ame 42 (>=60 mL/min/1.73m^2); Glucose 282 mg/dL (74-106); Magnesium 2.2 mg/dL (1.8-2.4); Phosphorus 3.7 mg/dL (2.6-4.7); Potassium 4.6 mmol/L (3.5-5.1); Sodium 142 mmol/L (136-145)
== END 2024-12-22 08:15 | disposition home or self-care (01) ==
LOC: LAB 08:14
PROVIDERS: PCP Family Medicine; Visit Provider Internal Medicine Nephrology
DX: N18.32 Chronic kidney disease, stage 3b (principal); E55.9 Vitamin D deficiency, unspecified
CPT/HCPCS: 36415; 80048; 82042; 82306; 82570; 83735; 84100; 84156; 85018

== ENCOUNTER 2025-01-18 11:07 | Outpatient (OUT) | payer MEDICARE, SELFPAY ==
--- OUTSIDE RECORDS SUMMARY | 2025-01-18 11:14 | XMS_ITS | CCD ---
Author Organization [facility] Care Team Providers Care [place] Sanitarian Name Role Phone PHYSICIAN, DEFAULT Admitting Unavailable PHYSICIAN, DEFAULT Attending Unavailable PJ YOUSSEF Primary Care Unavailable Pj Youssef Primary Care Physician HOY ., DR ARAUJO Primary Care Unavailable HOY ., DR ARAUJO Consulting Unavailable HOY ., DR ARAUJO Attending Unavailable HOY ., DR ARAUJO Admitting Unavailable ZIEBER, DR CLOVER Zimmer Consulting Unavailable BAY MILLS, DR CRAMER Consulting Unavailable HOY ., DR ARAUJO Primary Care Unavailable BAY MILLS, DR CRAMER Attending Unavailable BAY MILLS, DR CRAMER Admitting Unavailable BAY MILLS, DR CRAMER Consulting Unavailable HOY ., DR ARAUJO Primary Care Unavailable BAY MILLS, DR CRAMER Attending Unavailable BAY MILLS, DR CRAMER Admitting Unavailable HOY ., DR ARAUJO Consulting Unavailable HOY ., DR ARAUJO Primary Care Unavailable HOY ., DR ARAUJO Attending Unavailable HOY ., DR ARAUJO Admitting Unavailable BAY MILLS, DR CRAMER Consulting Unavailable HOY ., DR ARAUJO Primary Care Unavailable BAY MILLS, DR CRAMER Attending Unavailable BAY MILLS, DR CRAMER Admitting Unavailable HOY ., DR [...] Dwyer Consulting Unavailable FRANCISCO ZELAYA Consulting Unavailable PREETI ROBERTS Consulting Unavailable Pineda GUSTAFSON, Pj Fernandez Primary Care Provider [phone] BARRIE MONTOYA Attending Unavailable BLAISE CHICAS Attending Unavailable BLAISE CHICAS Attending Unavailable AVIVA, BLAISE Marroquin Attending Unavailable BLAISE CHICAS Attending Unavailable BLAISE CHICAS Attending Unavailable BARRIE MONTOYA Attending Unavailable BLAISE CHICAS Attending Unavailable PETITTRODNEY Mixon Attending Unavailable BLAISE CHICAS Attending Unavailable BLAISE CHICAS A Attending Unavailable NKANSAH-AMANKRA, MARQUIS Attending Unavail able NKANSAH-AMANKRA, MARQUIS Referring Unavail able Nereyda Gomez Attending Unavailable Nereyda Gomez Attending Unavailable Mejia SINGH Attending Unavailable Mejia SINGH Referring Unavailable NKANSAH-AMANKRA, MARQUIS Attending Unavail able Mejia SINGH Attending Unavailable NKANSAH-AMANKRA, MARQUIS Referring Unavail able NKANSAH-AMANKRA, MARQUIS Attending Unavail able LU OLMEDO Attending Unavailable NKANSAH-AMANKRA, MARQUIS Attending Unavail able NKANSAH-AMANKRA, MARQUIS Referring Unavail able NKANSAH-AMANKRA, MARQUIS Admitting Unavail able NKANSAH-AMANKRA, MARQUIS Referring Unavail able NKANSAH-AMANKRA, MARQUIS Admitting Unavail able NKANSAH-AMANKRA, MARQUIS Attending Unavail able NKANSAH-AMANKRA, MARQUIS Referring Unavail able NKANSAH-AMANKRA, MARQUIS Attending Unavail able NKANSAH-AMANKRA, MARQUIS Attending Unavail able NKANSAH-AMANKRA, MARQUIS Attending Unavail able CLARBIEL CISNEROS Attending Unavailable ROBERUKACLARIBEL ARCHER Attending Unavailable CLARIBEL CISNEROS Attending Unavailable JEFF REYES Attending Unavailable BAY MILLSRUTHIE Attending Unavailable RUTHIE LINDA Attending Unavailable Allergies Allergy Classification Reported Allergen(s) Allergy Type Date of Onset Reaction(s) Facility (20 sources) Aminolevulinic Acid; Translations: [aminolevulinic acid] Drug Allergy 11-04-20 13 Unknown [facility] Repository (1 source) NITRO PATCH; Translations: [NITRO PATCH] Propensity to adverse reactions (disorder) 03-18-20 12 [facility] Rep[facility] (18 sources) Contrast media; Translations: [Contrast Dye] Drug allergy Unknown (qualifier value) [facility] (20 sources) Hmg-Coa Reductase Inhibitors (Statins); Translations: [statins] Allergy to substance 08-24-20 23 Unknown [facility] (20 sources) Nitroglycerin; Translations: [nitroglycerin] Drug Allergy 02-23-20 22 Unknown (qualifier value) [facility] (2 sources) black walnut pollen extract; Translations: [CYEAUIB-ANZ-CJT REDUCTASE INHIBITORS] Drug Allergy 04-21-[address] [facility] Rep[facility] (1 source) Iodine (And Iodine Containting Drugs) Drug allergy (disorder) 05-28-[address] [facility] (20 sources) Nitroglycerin Allergy to substance 02-23-20 22 [facility] (20 sources) Iodinated Contrast Media; Translations: [IODINATED CONTRAST MEDIA] Drug Allergy 07-17-20 22 [facility] (4 sources) Simvastatin; Translations: [simvastatin] Drug Allergy elevated liver enzymes [facility] (1 source) Aminolevulinic Acid; Translations: [aminolevulinic acid] Drug Allergy 11-04-20 13 [facility] Repository (1 source) Nitroglycerin; Translations: [Nitroglycerin Patch] Drug Allergy [facility] Repository Medications Current Medications Medication Drug Class(es) Dates Sig (Normalized) Sig (Original) acetaminophen 325 mg / HYDROcodone bitartrate 5 mg oral tablet (4 sources) Opioid Agonist Start: 10-16-2024 take 1 tablet by mouth every six hours as needed for pain, then take 2 tablets by mouth every six hours as needed for pain Bokoshe 325 mg-5 mg oral tablet 1 tab(s), Oral, q6hr, 2 tab(s), Refill(s) 0, Take q6hrs as needed for pain., [facility]/pharmacy #[id number], 185, cm, 10/02/24 11:15:00 [...] Status: Ordered alogliptin 25 mg oral tablet (20 sources) Start: 11-12-2022 take 1 tablet by mouth in the morning alogliptin (Nesina) 25 MG tablet Take 1 tablet by mouth in the morning. 11/12/2022 Active ALPRAZolam 0.25 mg oral tablet (20 sources) Benzodiazepine ALPRAZolam (Xanax) 0.25 MG tablet [...] mouth in the morning. Active B-Complex tablet (20 sources) B-Complex tablet as directed Orally Active Symbicort (20 sources) Corticosteroid, beta2-Adrenergic Agonist Start: 01-09-2019 Symbicort 80-4. 5 mcg/actuation, Inhalation, BID, Refill(s) 0, COPD Start Date: 01/09/19 Status: Ordered End: 08-01-2024 budesonide-formoterol (Symbi sandra) 80-4.5 MCG/ACT inhaler 1 (one) time each day at the same time. 08/01/2024 Discontinued cholecalciferol 0.025 mg oral tablet (20 sources) Vitamin D cholecalciferol (Vitamin D-[address]) 25 MCG (1000 UT) tablet Take 2,000 Units by mouth in the morning. Active ciprofloxacin 500 mg oral tablet (5 sources) Quinolone Antimicrobial Start: take 1 tablet by mouth twice daily Cipro 500 mg Tab 500 mg = 1 tab(s), Oral, BID, Start 1 day prior to procedure., # 6 tab(s), Refills(s) 0, Pharmacy: [facility]/pharmacy #[id number], 185, cm, 10/02/24 11:15:00 EST, Height/Length Dosing, 91, kg, 10/02/24 11:15:00 EST, Weight Dosing Start Date: 10/16/24 Status: Ordered Start: 08-11-2024 take 1 tablet by joslyn th twice daily Cipro 500 mg Tab 500 mg = 1 tab(s), Oral, BID, Start 3 days prior to procedure., # 6 tab(s), Refills(s) 0, Pharmacy: [facility]/pharmacy #[id number], 185, cm, 08/08/24 10:28:00 EDT, Height/Length Dosing, 91, kg, 08/08/24 10:28:00 EDT, Weight Dosing Start Date: 08/11/24 Status: Ordered cloNIDine hydrochloride 0.1 mg oral tablet (20 sources) Central alpha-2 Adrenergic Agonist Start: 01-09-2019 take 0.1 mg by mouth twice daily clonidine 0.1 mg, Oral, BID, Refills(s) 0, High blood pressure Start Date: 01/09/19 Status: Ordered diazePAM 10 mg oral tablet (4 sources) Benzodiazepine Start: 10-16-2024 Valium 10 mg Tab 10 mg = 1 tab(s), Oral, Once, take one hour prior to the procedure., # 1 tab(s), Refills(s) 0, Pharmacy: [facility]/pharmacy #[id number], 185, cm, 10/02/24 11:15:00 [...] DULoxetine 20 mg delayed release oral capsule (15 sources) Serotonin and Norepinephrine Reuptake Inhibitor Start: [...] Status: Ordered gabapentin 600 mg oral tablet (17 sources) Anti-epileptic Agent Start: 01-09-2019 gabapenti n 600 mg, Oral, qNOON, Refills(s) 0, Neuropathy Start Date: 01/09/19 Status: Ordered glimepiride 2 mg oral tablet (20 sources) Sulfonylurea Start: 01-09-2019 take 2 mg by mouth once daily glimepiride 2 mg, Oral, Daily, Refills(s) 0, High blood sugar Start Date: 01/09/19 Status: Ordered take 1 tablet by mouth in the ks rning glimepiride (Amaryl) 4 MG tablet Take [...] DAILY Active levoFLOXacin 750 mg oral tablet (20 sources) Quinolone Antimicrobial Start: 07-23-2023 levoFLOXacin (Levaquin) 750 MG tablet 1 (one) time each day at the same time. 07/23/2023 Active magnesium oxide 500 mg oral tablet (17 sources) Start: 08-28-2020 take 500 mg by mouth once daily magnesium oxide 500 mg, Oral, Daily, Refills(s) 0, Prophylaxis Start Date: 08/28/20 Status: Ordered Start: 08-28-2020 magnesium oxid e Oral, Refills(s) 0 Start Date: 08/28/20 Status: Ordered metFORMIN hydrochloride 500 mg oral tablet (16 sources) Biguanide Start: 08-08-2024 metformin 500 mg [...] hours Active mupirocin 20 mg/ml topical cream (6 sources) RNA Synthetase Inhibitor Antibacterial Start: 08-08-2024 [...] Daily Prior to colonoscopy Per physician's instructions, [facility]/pharmacy #[id number], 185, cm, 03/31/22 9:58:00 [...] week(s), # 42 tab(s), Refills(s) 0, Pharmacy: [facility]/pharmacy #[id number], 185, cm, 10/02/24 11:15:00 [...] Status: Ordered SITagliptin 100 mg oral tablet (17 sources) Dipeptidyl Peptidase 4 Inhibitor Start: 01-09-2019 [...] Date: 01/09/19 Status: Ordered 60 actuat tiotropium 0.58299 mg/actuat inhalation spray (16 sources) Anticholinergic Start: 01-09-2019 Spiriva Respimat 1.25 [...] mg/ml / clotrimazole 10 mg/ml topical cream (6 sources) Azole Antifungal, Corticosteroid Start: 08-08-2024 betamethasone-clotrimazole Top 0.05%-1% Crm 15 gram Refill(s) 0 Start Date: 08/08/24 Status: Ordered bifidobacterium infantis 4 mg oral capsule (16 sources) Start: 06-10-2023 End: 08-01-2024 take 1 capsule by mouth once daily Probiotic Product (Align) capsule TAKE 1 CAPSULE BY MOUTH DAILY AFTER COMPLETING THE ANTIBIOTICS COURSE 06/10/2023 08/01/2024 Discontinued Start: 08-28-2020 take 1 capsule by [facility] once daily Align 4 mg oral capsule 4 mg = 1 cap(s), Oral, Daily, Take after completing the Antibiotics course, # 28 cap(s), Refills(s) 0, [id number], cm, 08/28/20 12:05:00 EDT, Height/Length Dosing, 103.7, kg, 08/28/20 12:05:00 EDT, Weight Dosing Start Date: 08/28/20 Status: Ordered psyllium 525 mg oral capsule (17 sources) Start: 08-28-2020 take 8 capsules by mouth once daily Metamucil 525 mg oral capsule 1,050 mg = 2 cap(s), Oral, Daily, Take 2 hour apart from the other medications with at least 8 ounces of water, # 160 cap(s), Refills(s) 1, [id number], 185, cm, 08/28/20 12:05:00 EDT, Height/Length Dosing, 103.7, kg, 08/28/20 12:05:00 EDT, Weight Dosing Start Date: 08/28/20 Status: Ordered Problems Active Problems Problem Classification Problem Date Documented Da te Episodic/Chronic Abdominal pain (1 source) Abdominal pain; Translations: [Unspecified abdominal pain] Onset: 10-01-2023 Episodic Asthma (17 sources) Asthma 08-28-2020 Chronic Cardiac dysrhythmias (1 [...] disease (2 sources) Atherosclerotic heart disease of [place] coronary artery without angina pectoris; Translations: [Atherosclerotic heart disease of [place] coronary artery without angina pectoris] Onset: 12-14-2024 Chronic Deficiency and other anemia (1 source) Anemia, unspecified; Translations: [ANEMIA UNSPECIFIED] Onset: 03-04-2023 Episodic Diabetes mellitus with complications (10 sources) Type 2 diabetes mellitus with hyperglycemia; Translations: [Type 2 diabetes mellitus with diabetic chronic kidney disease] Onset: 08-27-2022 09-08-2024 Chronic Diabetes mellitus without complication (18 sources) Diabetes mellitus; Translations: [Type 2 diabetes mellitus without complications] Onset: 04-30-2022 08-28-2020 Chronic Disorders of lipid metabolism (4 sources) Hyperlipidemia, unspecified; Translations: [HYPERLIPIDEMIA UNSPECIFIED] Onset: 04-28-2022 Chronic Diverticulosis and diverticulitis (16 sources) Diverticula of intestine; Translations: [Diverticulosis of intestine, part unspecified, without perforation or abscess without bleeding] Onset: 06-09-2022 Chronic Essential hypertension (3 sources) Essential (primary) hypertension; Translations: [ESSENTIAL PRIMARY HYPERTENSION] Onset: 04-30-2022 Chronic Genitourinary symptoms and ill-defined conditions (2 sources) Post-void dribbling; Translations: [Post-micturition incontinence ] Onset: 12-04-2024 Chronic Genitourinary symptoms and ill-defined conditions (14 sources) Retention of urine; Translations: [Retention of urine, unspecified] Onset: 08-08-2024 Episodic Heart valve disorders (7 sources) Nonrheumatic aortic (valve) stenosis; Translations: [Rheumatic tricuspid insufficiency] Onset: 07-01-2022 Chronic Hemorrhoids (16 sources) Hemorrhoids; Translations: [Unspecified hemorrhoids] Onset: 06-09-2022 Episodic Hyperplasia of prostate (9 sources) Benign prostatic hypertrophy with outflow obstruction; Translations: [Benign prostatic hyperplasia with lower urinary tract symptoms] Onset: 08-08-2024 Chronic Hypertension with complications and secondary hypertension (1 source) Hypertensive chronic kidney disease with stage 1 through stage 4 chronic kidney disease, or unspecified chronic kidney disease; Translations: [HTN CKD W/STAGE 1-4 CKD/UNS CKD] Onset: 08-27-2022 Chronic Inflammatory conditions of male genital organs (9 sources) Balanitis; 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] Onset: 08-08-2024 Chronic Mycoses (6 sources) Pain in toe; Translations: [Tinea unguium] 09-08-2024 Episodic Nausea and vomiting (10 sources) Nausea; Translations: [Nausea] Onset: 10-01-2023 Episodic Nutritional deficiencies (2 sources) Vitamin D deficiency, unspecified; Translations: [Vitamin D deficiency, unspecified] Onset: 07-05-2024 Chronic Other aftercare (3 sources) Long-term current use of anticoagulant; Translations: [care home (current) use of anticoagulants] Onset: 08-08-2024 Episodic Other and unspecified benign neoplasm (20 sources) History of polyp of colon; Translations: [Personal history of colonic polyps] Onset: 03-31-2022 Episodic Other and unspecified benign neoplasm (18 sources) Polyp of colon; Translations: [Polyp of colon] Onset: 06-09-2022 08-28-2020 Episodic Other and unspecified benign neoplasm (2 sources) Melanocytic nevus of trunk; Translations: [Melanocytic nevi of trunk] 08-24-2024 Episodic Other connective tissue disease (10 sources) Pain in right foot; Translations: [Pain in right foot] 09-08-2024 Episodic Other diseases of bladder and urethra (3 sources) Detrusor overactivity; Translations: [Overactive bladder] Onset: 08-08-2024 Chronic Other diseases of bladder and urethra (6 sources) Overactive bladder 08-08-2024 Chronic Other diseases of kidney and ureters (2 sources) Urinary tract obstruction; Translations: [Other obstructive and reflux uropathy] Onset: 09-25-2024 Episodic Other gastrointestinal disorders (17 sources) Chronic constipation with overflow 08-28-2020 Episodic Other gastrointestinal disorders (4 sources) Other fecal abnormalities; Translations: [OTHER FECAL ABNORMALITIES] Onset: 02-27-2023 Episodic Other gastrointestinal disorders (16 sources) Urgent desire for stool; Translations: [Fecal urgency] Onset: 04-13-2023 Episodic Other gastrointestinal disorders (2 sources) Abnormal feces; Translations: [Other fecal abnormalities] Onset: 04-13-2023 Episodic Other gastrointestinal disorders (14 sources) Loose stool 04-13-2023 Episodic Other gastrointestinal disorders (12 sources) Abdominal wind pain; Translations: [Gas pain] Onset: 06-10-2023 Episodic Other gastrointestinal disorders (2 sources) Constipation, unspecified; Translations: [Constipation, unspecified] Onset: 10-01-2023 Episodic Other gastrointestinal disorders (9 sources) Constipation 10-01-2023 Episodic Other hereditary and degenerative nervous system conditions (20 sources) Essential tremor; Translations: [Essential tremor] Onset: 01-07-2024 01-07-2024 Chronic Other male genital disorders (9 sources) Acquired buried penis; 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] Onset: 08-08-2024 Chronic Other nervous system disorders (20 sources) Polyneuropathy; Translations: [Polyneuropathy, unspecified] Onset: 01-07-2024 [...] UNSPECIFIED] Onset: 08-27-2022 Chronic Residual codes; unclassified (20 sources) Obstructive sleep apnea syndrome; Translations: [Obstructive sleep apnea (adult) (pediatric)] Onset: 01-11-2024 01-11-2024 Chronic Residual codes; unclassified (7 sources) Family history of malignant neoplasm of digestive organ; Translations: [Family history of malignant neoplasm of digestive organs] Onset: 03-31-2022 Episodic Residual codes; unclassified (17 sources) Family history of cancer of colon 03-31-2022 Episodic Unclassified (4 sources) CHRN KIDNEY DISEASE STG 3 UNSP; Translations: [CHRN KIDNEY DISEASE STG 3 UNSP] Onset: 08-27-2022 Unclassified (3 sources) CONTACT W/AND (SUSP) EXPOS COVID-19; Translations: [CONTACT W/AND (SUSP) EXPOS COVID-19] Onset: 06-19-2022 Unclassified (1 source) COUGH, UNSPECIFIED; Translations: [COUGH, UNSPECIFIED] Onset: 06-19-2022 Unclassified (9 sources) Finding of sensation of abdomen 10-01-2023 Unclassified (6 sources) Drug therapy finding 08-08-2024 Unclassified (1 source) Other pericardial effusion (noninflammatory); Translations: [Other pericardial effusion (noninflammatory)] Onset: 10-05-2022 Unclassified (2 sources) Longstanding persistent atrial fibrillation; Translations: [Longstanding persistent atrial fibrillation] Onset: 12-14-2024 Viral infection (10 sources) Verruca plantaris; Translations: [Plantar wart] 09-08-2024 [...] CAUSE DX CLASS ELSEWHERE] Onset: 08-27-2022 Episodic Fluid and electrolyte disorders (5 sources) Hypo-osmolality and hyponatremia; Translations: [Hyperkalemia] Onset: 08-27-2022 Episodic Malaise and fatigue (2 sources) Weakness; Translations: [Other fatigue] Onset: 04-30-2022 Episodic Other aftercare (1 source) care home (current) use of aspirin; Translations: [[facility] CURRENT USE OF ASPIRIN] Onset: 08-27-2022 Episodic Other aftercare (1 source) care home (current) use of anticoagulants; Translations: [LOGISTICS OFFICER CURRNT USE ANTICOAGULANTS] Onset: 08-27-2022 Episodic Other aftercare (1 source) Other residential (current) drug therapy; Translations: [OTH LOGISTICS OFFICER CURRENT DRUG THERAPY] Onset: 08-27-2022 Episodic Other circulatory disease (1 source) Other specified symptoms and signs involving the circulatory and respiratory systems; Translations: [OTH SPEC SX SIGNS INVLV CIRC RS] Onset: 06-19-2022 Episodic Other connective tissue disease (20 sources) Spasm of cervical paraspinous muscle; Translations: [...] [Xerosis cutis] 07-06-2024 Episodic Residual codes; unclassified (4 sources) Localized edema; Translations: [LOCALIZED EDEMA] Onset: 11-02-2022 Episodic Residual codes; unclassified (1 source) Edema, unspecified; Translations: [EDEMA UNSPECIFIED] Onset: 08-27-2022 Episodic Unclassified (20 sources) Parkinson's disease; Translations: [Parkinson disease] Onset: 01-07-2024 Resolved: 01-11-2024 01-11-2024 Chronic Unclassified (1 source) CHRN KIDNEY DISEASE STG 3 UNSP; Translations: [CHRN KIDNEY DISEASE STG 3 UNSP] Onset: 12-28-2022 Unclassified (1 source) CONTACT W/AND (SUSP) EXPOS COVID-19; Translations: [CONTACT W/AND (SUSP) EXPOS COVID-19] Onset: 07-13-2022 Unclassified (1 source) Other pericardial effusion (noninflammatory); Translations: [Other pericardial effusion (noninflammatory)] Onset: 12-14-2024 Urinary tract infections (1 source) Urinary tract infection, site not specified; Translations: [UTI SITE NOT SPECIFIED] Onset: 08-27-2022 Episodic Results Test Name Value Interpretation Reference Range Facility Follow-Upon 01-03-2025 Follow-Up [id number] Nadir Beth 1940 M Date Provider Department Center 01/03/2025 RUTHIE OWEN [facility] Comprehensiv Family History Problem Relation Age of Onset Coronary artery disease Father Family Status - Relation Status Age at Father Level of Service:47198 [place] OFFICE/OUTPATIENT ESTABLISHED MOD MDM 30 MIN () Reason for Visit and Comments: Follow-up [768332] [facility] Office Visiton 12-14-2024 Follow-up visit [id number] KiritNadir L 1940 M Date Provider Department Center 12/14/2024 CLARIBEL VILLALOBOS MILKA Dominguez [facility] Family History Problem Relation Age of Onset Coronary artery disease Father Family Status - Relation Status Age at Father Level of Service:01464 MT OFFICE/OUTPATIENT ESTABLISHED MOD MDM 30 MIN Normal [facility] Ambulatory Visit Summaryon 0 12-04-2024 Ambulatory Visit Summary Ambulatory Visit Summary NADIR BETH :1940 Visit Date:12/04/2024 Ambulatory Visit Instructions Your Diagnosis BPH with urinary obstruction Gross hematuria Incomplete bladder emptying OAB (overactive bladder) Post-void dribbling Acquired buried penis Balanitis Anticoagulated Other obstructive and reflux uropathy Your Care Team Attending Physician - ADRIAN GUSTAFSON, MARQUIS Primary Care Physician - Pj Youssef MD Referring Physician - MARQUIS LOUISE MD This Is Your Medications List acetaminophen-hydrocod one (Bokoshe 325 mg-5 mg oral tablet) ciprofloxacin (Cipro [...] repair, Tonsillectomy. Discharge Vitals Heart Rate (Peripheral) 78 Blood Pressure 160/90 Height 185 cm Height 73 in Weight 91 kg Weight 200.62 lb BMI 26.59 What to do next Scheduled Follow-Up Appointments Wednesday 11:40 AM EDT With: SHARA HENDERSON, LU Sweet Where: [facility] [address] [place] [address] [place] [address]- You Need to Schedule the Following Appointments Follow Up with ADRIAN GUSTAFSON, ADAN CHO When: In 6 months Comments: Can see DIAMANTE, w/PVR Where: Medications What How Much When Why Instructions Unchanged acetaminophen-hydrocod one (Bokoshe 325 mg-5 mg oral tablet) 1 Tablets [...] Contact prescribing physician if questions or concerns Uncha (more content not included)... Normal [facility] Urology Office/Clinic Noteon 12-04-2024 Urology Office/Clinic Note Urology Office/Clinic Note Chief Complaint 6-8 wk f/u w/ PVR HPI Staff 84 year old male here for 5 wk follow up Needs pvr Previous Dx: bph with luts S/P urlift 10/23/24- continues flomax 0.4mg qd*, Gross hematuria, Incomplete bladder emptying, OAB, acquired buried penis, balanitis Cath removed IO 11/06 pt states at times his urine stream sprays to the side. No other issues History of Present Illness Tests reviewed: reviewed UA and PVR. I have reviewed the previous health record information and history for this patient from . I have reviewed and verified the staff [...] HPI. Physical Exam Vitals & Measurements HR: 78(Peripheral) BP: 160/90 HT: 73 in HT: 185 cm WT: 91 kg WT: 200.62 lb BMI: 26.59 General Appearance: alert, no distress, well nourished, well developed male. Genitourinary: normal scrotum, normal testes, normal urethra, normal epididymis, normal vas deferens/spermatic cord. Flank Pain: none. Bladder: nonpalpable. Prostate: normal prostate, estimated weight 35 gms, no hard nodule observed. Assessment/Plan 1. BPH with urinary obstruction (N40.1: Benign [...] out of his penis. Pt presented to [facility] ER 10/28/24 due to clot retention. Seen in consult by Dr. Singh. 24 Fr three-way palomares placed. CBI initiated. Palomares was removed on 11/06/24. Prior IPSS 11(23). Taking Flomax 0.4mg qd which he has been on for years. Pt states that the biggest improvement was his frequency, his stream is spraying at times, has noticed that the stream is a little bit better than what it was before. Pt states that he does have some leaking, can control it, has post void dribbling at the end of his stream. Advised pt that he can try to sit and void or to do double voiding maneuvers to ensure that he is emptying better. Follow up in 6 mos w/PVR w/DIAMANTE. All questions/concerns were discussed. Pt to call the office if he encounters any issues prior. Pt acknowledges understanding. -Double Voiding 2. Gross hematuria (R31.0: Gross hematuria) UA today shows no signs of blood or infection. Pt denies any recent episodes of visible blood in his urine. Pt knows to call our office if he see's visible blood in his urine. -See #1. 3. Incomplete bladder emptying (R33.9: Retention of urine, unspecified) PVR(cc): 08/08/24 - 472 12/04/24 - 198 Advised pt that he is emptying fine. See #1. 4. OAB (overactive bladder) (N32.81: Overactive bladder) See #1 and 2. Likely exacerbated by incomplete emptying and Lasix. -Dm control 5. Post-void dribbling (N39.43: Post-void dribbling) -See #1 6. 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 -Behavioral modifications 7. 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) Pt presented to [facility] ER 08/06/24 with redness on the [...] position of glans penis. -Cont symptomatic monitoring 8. Anticoagulated (Z79.01: care home (current) use of anticoagulants) Taking Eliquis, has restarted since UroLift. Hx of cardioversion. Increased risk for bleeding. Elevated r (more content not included)... Normal [facility] Comment on above: Result Comment: Elec tronically Signed By: MARQUIS LOUISE MD\.br\Date and Time Signed: 12/04/24 09:21 EST\.br\Electronically Co-Signed By: Deepthi Kevin\.br\Date and Time Co-Signed: 12/04/24 09:11 EST Ambulatory Visit Summaryon 1 01-07-2024 Ambulatory Visit Summary Ambulatory Visit Summary NADIR BETH :1940 Visit Date:11/06/2024 Ambulatory Visit Instructions Your Care Team Attending Physician - SAMANTHA GUSTAFSON, Mejia Zimmer Primary Care Physician - Pj Youssef MD This Is Your Medications List NIFEdipine acetaminophen-hydrocod one (Bokoshe 325 mg-5 mg oral tablet) acyclovir apixaban [...] MARQUIS LOUISE MD Where: [facility] [address], [address] [place] [address]- Medications What How Much When Why Instructions Unchanged acetaminophen-hydrocod one (Bokoshe 325 mg-5 mg oral tablet) 1 Tablets [...] survey v (more content not included)... Normal [facility] Ambulatory Visit Summaryon 1 01-03-2024 Ambulatory Visit Summary Ambulatory Visit Summary NADIR BETH :1940 Visit Date:11/02/2024 Ambulatory Visit Instructions Your Diagnosis BPH with urinary obstruction Gross hematuria Incomplete bladder emptying OAB (overactive bladder) Acquired buried penis Balanitis Anticoagulated Your Care Team Attending Physician - ADRIAN GUSTAFSON, MARQUIS Primary Care Physician - Pj Youssef MD This Is Your Medications List acetaminophen-hydrocod one (Bokoshe 325 mg-5 mg oral tablet) ciprofloxacin (Cipro [...] AM EST With: Where: [facility] [address] [place] [address] [place] [address]- Wednesday 8:40 AM EST With: MARQUIS LOUISE MD Where: [facility] [address], [address] [place] [address]- You Need to Schedule the Following Appointments Follow Up with ADRIAN GUSTAFSON, ADAN CHO When: Where: Medications What How Much When Why Instructions Unchanged acetaminophen-hydrocod one (Bokoshe 325 mg-5 mg oral tablet) 1 Tablets [...] or co (more content not included)... Normal [facility] Urology Office/Clinic Noteon 11-02-2024 Urology Office/Clinic Note Urology Office/Clinic Note Chief Complaint er f/u HPI Staff 84 year old male here for [facility] ER F/U, difficulty urinating. Bladder scan [...] with voice recognition artificial intelligence software, specifically Viddsee, Intelipost and or Rostima. Substitutions may have occurred due to the [...] out of his penis. Pt presented to [facility] ER 10/28/24 due to clot retention. [...] 6. 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) Pt presented to [facility] ER 08/06/24 with redness on the [...] penis. -Cont symptomatic monitoring 7. Anticoagulated (Z79.01: salvage determiner (current) use of anticoagulants) Taking Eliquis, has restarted since UroLift. Hx of cardioversion. Increased risk for bleeding. Elevated risk for periop complications. Patient underwent a UroLift procedure approximately a week and a half ago. Unfortunately, he developed gross hematuria with clot retention that required hand irrigation with a three-way Palomares catheter. He presents today for an (more content not included)... Normal [facility] Comment on above: Result Comment: [...] MARQUIS LOUISE MD Primary Care Physician - Pj Youssef MD Referring Physician - MARQUIS LOUISE MD This Is Your Medications List NIFEdipine acetaminophen-hydrocod one (Bokoshe 325 mg-5 mg oral tablet) acyclovir apixaban [...] MARQUIS LOUISE MD Where: [facility] [address], [address] [place] [address]- Medications What How Much When Why Instructions Unchanged acetaminophen-hydrocod one (Bokoshe 325 mg-5 mg oral tablet) 1 Tablets [...] emptying Naus (more content not included)... Normal [facility] Inpatient Patient Summaryon 10-23-2024 Inpatient Patient Summary Inpatient Patient Summary [place] [address] Clinical Summary Person Information Name: NADIR BETH Age: 84 Years : 1940 Sex: Male PCP: Pj Youssef MD Marital Status: Race: White Ethnicity: Non- or Language: Danish Visit Id: Visit Reason: BPH WITH URINARY OBSTRUCTION, INCOMPLETE BLADDER EMPTYING Speciality: Acuity: Enc Type: Outpatient Med Service: Surgery Arrival: 10/23/2024 13:48:15 Discharge: Dispo Type: Address: [address] [facility] [id number] Provider Notes: Diagnosis: Problems Active BPH with [...] This Visit Final Med List: acetaminophen-hydrocod one (Bokoshe 325 mg-5 mg oral tablet) 1 Tablets [...] Patient Education Information: Benign Prostatic Hyperplasia Normal [facility] Main OR Intraoperative Recor don 10-23-2024 Main OR Intraoperative Record Main OR Intraoperative Record IntraOp Document Type FTURO Summary Primary Physician: MARQUIS LOUISE MD Finalized Date/Time: 10/23/24 15:03:19 Pt. Name: NADIR BETH /Sex: 1940 Male Med Rec #: [id number] Physician: MARQUIS LOUISE MD Financial #: [id number] Pt. Type: O Room/Bed: / Admit/Disch: 10/23/24 [...] 3 Case Attendee ADRIAN GUSTAFSON, Oliva Goel RUST, Ana CHO Role Performed Surgeon - Primary Sample Case Porter - Primary Scrub - Primary Time In [...] Participants Manasa CHO, Applicable) Walt Pool CST, Ana Marroquin Time Out Complete 10/23/24 14:19:00 Allergies Reviewed? [...] Implant Implant Identification Description UROLIFT Lot Number [id number] Plant Taxonomist UROLIFT Catalog ???# UL2-C Expiration Date 11/30/25 [...] Oliva Goel (more content not included)... Normal [facility] Main OR Preoperative Recordo n 10-23-2024 Main OR Preoperative Record Main OR Preoperative Record Holding Area Document Type FTURO Summary Primary Physician: MARQUIS LOUISE MD Finalized Date/Time: 10/23/24 14:17:30 Pt. Name: KIRITNADIR/Sex: 1940 Male Med Rec #: [id number] Physician: MARQUIS LUOISE MD Financial #: [id number] Pt. Type: O Room/Bed: / Admit/Disch: 10/23/24 [...] Complaints of Pain: No Skin Integrity Intact, Mcgovern, Warm, & Dry Vitals - EU Blood Pressure 152/78 Pulse 84 bpm Respirations 18 br/min SPO2 90 % Additional None RN Reviewed Yes Specimens Collected Last Modified By: Oliva Goel 10/23/24 14:17:29 Finalized By: Oliva Goel Document Signatures Signed By: Preeti Kaur LPN 10/23/24 14:05 Oliva Goel 10/23/24 14:17 Normal [facility] Operative Reporton 4 Operative Report Operative Report [...] urethral meatus. We then placed the 20 Bhutanese cystoscope into the bladder. Bilobar hyperplasia was [...] able to easily navigate with a 20 Bhutanese scope. Scope was then removed and an 18 Bhutanese Palomares catheter was placed with return of light pink urine and no clots noted. This concluded the procedure. Patient was then transferred to PACU in stable condition. PLAN: Patient will follow-up in 2 days for Palomares catheter removal. 10 cc in the balloon Follow-up in 6 to 8 weeks with IPSS at that time Normal [facility] Comment on above: Result Comment: Elec tronically Signed By: MARQUIS LOUISE MD\.br\Date and Time Signed: 10/23/24 15:06 EST Outpatient Surgery Discharge Instructionon 10-23-2024 Outpatient Surgery Discharge Instruction Outpatient Surgery Discharge Instruction [place] [address] Patient Discharge Instructions PERSON INFORMATION Name: NADIR [...] amount of (more content not included)... Normal [facility] Ambulatory Visit Summaryon 1 12-02-2023 Ambulatory Visit Summary Ambulatory Visit Summary NADIR BETH :1940 Visit Date:10/02/2024 Ambulatory Visit Instructions Your Diagnosis BPH with urinary obstruction Incomplete bladder emptying Balanitis Acquired buried penis OAB (overactive bladder) Anticoagulated Your Care Team Attending Physician - MARQUIS LOUISE MD Primary Care Physician - Pj Youssef MD Referring Physician - MARQUIS LOUISE [...] Survey Yo (more content not included)... Normal [facility] Ambulatory Visit Summary Ambulatory Visit Summary NADIR BETH :1940 Visit Date:10/02/2024 Ambulatory Visit Instructions Your Diagnosis BPH with urinary obstruction Incomplete bladder emptying Balanitis Acquired buried penis OAB (overactive bladder) Anticoagulated Your Care Team Attending Physician - ADRIAN GUSTAFSON, MARQUIS Primary Care Physician - HoPj preston MD Referring Physician - MARQUIS LOUISE MD [...] for (more content not included)... Normal [facility] Urology Office/Clinic Noteon 10-02-2024 Urology Office/Clinic [...] with voice recognition artificial intelligence software, specifically Viddsee, Intelipost and or Rostima. Substitutions may have occurred due to the [...] -Cipro 500mg bid start the day prior, Bokoshe 325-5mg #2 q6hrs as needed for pain, [...] 3. 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) Pt presented to [facility] ER 08/06/24 with redness on the [...] and Lasix. -Dm control 6. Anticoagulated (Z79.01: care home (current) use of anticoagulants) Taking Eliquis. Hx of cardioversion. Elevated risk for periop complications. Based on patient's age, multiple medical comorbidities and his prostate size we discussed extensively that he will benefit most likely from a UroLift procedure. He is amenable to (more content not included)... Normal [facility] Comment on above: Result Comment: Elec tronically Signed By: MARQUIS LOUISE MD\.br\Date and Time Signed: 10/02/24 11:43 EST\.br\Electronically Co-Signed By: Roxy Gatica\.br\Date and Time Co-Signed: 10/02/24 11:21 EST\.br\Electronically Co-Signed By: Roxy Gatica\.br\Date and Time Co-Signed: 10/02/24 11:22 EST\.br\Electronically Co-Signed By: Roxy Gatica\.br\Date and Time Co-Signed: 10/02/24 11:23 EST Inpatient Patient Summaryon 09-25-2024 Inpatient Patient Summary Inpatient Patient Summary [place] [address] Clinical Summary Person Information Name: NADIR BETH Age: 84 Years : 1940 Sex: Male PCP: Pj Youssef MD Marital Status: Race: White Ethnicity: Non- or Language: Danish Visit Id: Visit Reason: ENLARGED PROSTATE WITH URINARY OBSTRUCTION, INCOMPLETE BLADDER EMPTYING Speciality: Acuity: Enc Type: Outpatient Med Service: Surgery Arrival: 09/25/2024 11:42:27 Discharge: Dispo Type: Address: [address] [facility] [id number] Provider Notes: Diagnosis: Problems Active BPH with [...] With: Address: When: MARQUIS LOUISE [address] [place] [address] [phone] Business (1) Comments: Follow-up in the office in 2 weeks to discuss next plan With: Address: When: MARQUIS LOUISE [address] [place] [phone] Business (1) Patient Education Information: Benign Prostatic Hyperplasia Normal [facility] Main OR Intraoperative Recor don 09-25-2024 Main OR Intraoperative Record Main OR Intraoperative Record IntraOp Document Type FTURO Summary Primary Physician: MARQUIS LOUISE MD Finalized Date/Time: 09/25/24 13:23:58 Pt. Name: NADIR BETH Joy Borja/Sex: 1940 Male Med Rec #: [id number] Physician: MARQUIS LOUISE MD Financial #: [id number] Pt. Type: O Room/Bed: / Admit/Disch: 09/25/24 [...] C KWABENA Role Performed Surgeon - Primary Sample Case Porter - Primary Scrub - Primary Time In [...] 09/25/24 13:23 Oliva Goel 09/25/24 13:23 Normal [facility] Main OR Preoperative Recordo n 09-25-2024 Main OR Preoperative Record Main OR Preoperative Record Holding Area Document Type FTURO Summary Primary Physician: MARQUIS LOUISE MD Finalized Date/Time: 09/25/24 13:04:51 Pt. Name: NADIR BETH Joy Borja/Sex: 1940 Male Med Rec #: [id number] Physician: MARQUIS LOUISE MD Financial #: [id number] Pt. Type: O Room/Bed: / Admit/Disch: 09/25/24 [...] Complaints of Pain: No Skin Integrity Intact, Mcgovern, Warm, & Dry Vitals - EU Blood Pressure Pulse Respirations SPO2 Additional None RN Reviewed Yes Specimens Collected Last Modified By: Oliva Goel 09/25/24 13:04:50 Finalized By: Oliva Goel Document Signatures Signed By: Preeti Kaur LPN 09/25/24 12:49 Oliva Goel 09/25/24 13:04 [facility] Operative Reporton Operative Report Operative Report [...] next steps Impression and Plan Counseled: Family. [facility] Comment on above: Result Comment: Elec tronically Signed By: MARQUIS LOUISE MD\.br\Date and Time Signed: 09/25/24 13:27 EST Outpatient Surgery Discharge Instructionon 09-25-2024 Outpatient Surgery Discharge Instruction Outpatient Surgery Discharge Instruction [place] [id number] Patient Discharge Instructions PERSON INFORMATION Name: NADIR [...] With: Address: When: MARQUIS ADRIAN [address] [place] [phone] Business (1) Comments: Follow-up in the office in 2 weeks to discuss next plan With: Address: When: MARQUIS ADRIAN [address] [place] [address] [phone] clipsync (1) Comment: PATIENT EDUCATION INFORMATION Instructions: Benign [...] radio frequen (more content not included)... Normal [facility] No Panel Informationon 08-24 [facility] Ambulatory Visit Summaryon 0 08-08-2024 Ambulatory Visit [...] 525 mg (more content not included)... Normal [facility] Urology Office/Clinic Noteon 08-08-2024 Urology Office/Clinic Note Urology Office/Clinic Note Chief Complaint follow up to [facility] ER HPI Staff 84 year old male new patient follow up to [facility] 08/06/24 presented due to redness on [...] 1. 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) Pt presented to [facility] ER 08/06/24 with redness on the [...] urinary channel, (more content not included)... Normal [facility] Comment on above: Result Comment: Elec tronically Signed By: MARQUIS LOUISE MD\.br\Date and Time Signed: 08/08/24 11:05 EDT\.br\Electronically Co-Signed By: Roxy Gatica\.br\Date and Time Co-Signed: 08/08/24 10:46 EDT\.br\Electronically Co-Signed By: Roxy Gatica\.br\Date and Time Co-Signed: 08/08/24 10:53 EDT Office Visiton 07-05-2024 Follow-up visit [id number] KiritNadir Joy 1940 M Date Provider Department Center 07/05/2024 RUTHIE OWEN [facility] Comprehensiv Family History Problem Relation Age of Onset Coronary artery disease Father Family Status - Relation Status Age at Father Level of Service:14475 MT OFFICE/OUTPATIENT ESTABLISHED MOD MDM 30 MIN Reason for Visit and Comments: Follow-up [[id number]] [facility] 06-20-2024 36 Regarding echo resul t from [...] her he should have another echo at [facility] in Oct 2024, prior to his follow up with Dr. Cisneros in Nov 2024. She verbalized understanding. Echo order faxed to [facility]. [facility] 06-14-2024 36 Patients called and stating that dr. Linda told her to call and let him know that her husbands blood pressure is better and she would like a call back. [facility] 06-09-2024 36 Spoke with patient's Kervin and made sure she understood to increase labetalol per Dr. Linda. She also understands not to resume hydralazine. [facility] 06-07-2024 36 I'm Stephanie from Dr. Cisneros's office with Cardiology. Patient's daughter called and wanted to know if Dr. Linda had restarted patient's hydralazine- NOT hydroxyzine. I don't see in the note that it was restarted. Dr. Linda, or someone from his office- can you clarify this for me? Thanks so much. [facility] Follow-Upon 06-07-2024 Follow-Up [id number] Nadir Beth 1940 M Date Provider Department Center 06/07/2024 Salvador-RUTHIE LINDA [facility] Comprehensiv Family History Problem Relation Age of Onset Coronary artery disease Father Family Status - Relation Status Age at Father Level of Service:05893 MT OFFICE/OUTPATIENT ESTABLISHED MOD MDM 30 MIN () Reason for Visit and Comments: Follow-up [020591] [facility] Telephoneon 06-07-2024 Telephone [id number] Nadir Beth 1940 M Date Provider Department Center 06/07/2024 Francisco-IRIS GUADALUPE [facility] Comprehensiv Family History Problem Relation Age of Onset Coronary artery disease Father Family Status - Relation Status Age at Father [facility] Office Visiton 06-05-2024 Follow-up visit [id number] Nadir Beth 1940 M Date Provider Department Center 06/05/2024 367-CLARIBEL CISNEROS MILKA Dominguez [facility] Family History Problem Relation Age of Onset Coronary artery disease Father Family Status - Relation Status Age at Father Level of Service:51265 MT OFFICE/OUTPATIENT ESTABLISHED MOD MDM [address] [facility] 36on 05-17-2024 36 Faxed lab orders 05/17/[address] [facility] 36on 05-15-2024 36 Patient states that he needs his blood work to go [facility] before his appointment on 05/31/24. [facility] 36on 05-10-2024 36 LM on for patient or his to return my call. [facility] 36on 05-08-2024 36 Patient's bucio d with concerns of elevated BP since hydralazine was stopped at last apt. She said sometimes it's very good - 110/60's and sometimes 152/70. He's scheduled to see you in a few weeks. Did you want to change anything? Please advise. Thanks. [facility] 3604-04-2024 36 Regarding blood work from 04/03/2024: MD Stephanie Kelley MA Stable renal function. Continue same treatment and follow-up as planned. Patient's made aware. [facility] Orders Onlyon 03-21-2024 Orders Only [id number] Nadir Beth 1940 M Date Provider Department Center 03/21/2024 895-LUCRETIA MURPHY CARD [facility] Family History Problem Relation Age of Onset Coronary artery disease Father Family Status - Relation Status Age at Father Normal [facility] Office Visiton 03-03-2024 Follow-up visit [id number] Nadir Beth Joy 1940 M Date Provider Department Center 03/03/2024 SrideviGONZÁLEZANJUMCLARIBEL DINH [facility] Family History Problem Relation Age of Onset Coronary artery disease Father Family Status - Relation Status Age at Father Level of Service:84945 MT OFFICE/OUTPATIENT ESTABLISHED MOD MDM 30 MIN Reason for Visit and Comments: Follow-up [069171] Normal [facility] MICRO OTHER TESTSOrdered By: Francisco Bolanos [...] mg/mg Normal 10 - 20 FT Remisol HEMATOLOGYOrdered By: SYSTEM SYSTEM on 04-13-2023 [...] 68.5 % Normal 36.0 - 75.0 % FT HemeAutoSS Neutrophils/Leukocyte s Auto (Bld) [Pure # fraction] 4.6 E9/L Normal 2.0 - 7.5 E9/L FT HemeAutoSS HEMATOLOGYOrdered By: Gauri Scott on 04-13-2023 [...] 6.7 E9/L Normal 4.0 - 11.0 E9/L [facility]eAutoSS ALBUMINon 03-24-2023 Albumin [Mass/Vol] 3.3 g/dL Critically low 3.4-5.[address] [facility] Comment on above: Performed By: #### M ERICK Faith PHOS #### [facility] [address] [place] [address] Dr. David Magana GLYCOHEMOGLOBIN A1Con 2022 ADA RECOMMENDATION SEE BELOW Normal [facility] Comment on above: Result Comment: ADA RECOMMENDED LIMIT 4.0 - 6.0 ADA THERAPEUTIC TARGET < 7.0 ACTION SUGGESTED > 7.0 Performed By: #### A 1C #### [facility] [address] [place] [address] Dr. David Magana Glucose [Mass/Vol] 108 mg/dL Normal [facility] Comment on above: Performed By: #### A 1C #### [facility] [address] [place] [address] Dr. David Magana HbA1c (Bld) [Mass fraction] 5.4 % Normal 4.5-6.2 [facility] Comment on above: Performed By: #### A 1C #### [facility] [address] [place] [address] Dr. David Magana PHOSPHORUSon 03-24-2023 Phosphate [Mass/Vol] 3.6 mg/dL Normal 2.6-4.7 [facility] Comment on above: Performed By: #### M ERICK Faith, PHOS #### [facility] [address] [place] [address] Dr. David Magana PROF CHEM 8 (BAS METB)on Anion gap [Moles/Vol] 11.6 mmol/L Normal [facility] Comment on above: Performed By: #### M ERICK Faith, PHOS #### [facility] [address] [place] [address] Dr. David Magana Calcium [Mass/Vol] 8.9 mg/dL Normal 8.5-10.1 [facility] Comment on above: Performed By: #### Jim Faith BMP, PHOS #### [facility] [address] [place] [address] Dr. David Magana Chloride [Moles/Vol] 107 mmol/L Normal 98-107 [facility] Comment on above: Performed By: #### M ERICK Faith, PHOS #### [facility] [address] [place] [address] Dr. David Magana CO2 [Moles/Vol] 30.8 mmol/L Normal 21.0-32.0 [facility] Comment on above: Performed By: #### M ERICK Faith, PHOS #### [facility] [address] [place] [address] [address] David Magana Creatinine [Mass/Vol] 1.67 mg/dL Critically high 0.70-1.30 [facility] Comment on above: Performed By: #### M G, BMP, PHOS #### [facility] [address] [place] [address] [address] David Magana EGFR-AF MONTSERRATIAN 48 mL/min/1.73m2 Critically low >=60 [facility] Comment on above: Performed By: #### M G, BMP, PHOS #### [facility] [address] [place] [address] [address] David Magana EGFR-NON AF MONTSERRATIAN 39 mL/min/1.73m2 Critically low >=60 [facility] Comment on above: Performed By: #### M G, BMP, PHOS #### [facility] [address] [place] [address] Dr. David Magana Glucose [Mass/Vol] 128 mg/dL Critically high 74-106 [facility] Comment on above: Performed By: #### M Marcell, BMP, PHOS #### [facility] [address] [place] [address] [address] David Magana Potassium [Moles/Vol] 4.4 mmol/L Normal 3.5-5.1 [facility] Comment on above: Performed By: #### M Marcell, BMP, PHOS #### [facility] [address] [place] [address] Dr. David Magana Sodium [Moles/Vol] 145 mmol/L Normal 136-145 [facility] Comment on above: Performed By: #### M G, BMP, PHOS #### [facility] [address] [place] [address] [address] David Magana Urea nitrogen [Mass/Vol] 25.0 mg/dL Critically high 7.0-18.0 [facility] Comment on above: Performed By: #### M G, BMP, PHOS #### [facility] [address] [place] [address] [address] David Magana Urea nitrogen/Creatinine [Mass ratio] 15.0 mg/mg Normal [facility] Comment on above: Performed By: #### M ERICK Faith, PHOS #### [facility] [address] [place] [address] Dr. David Magana VITAMIN D 25 OHon 03-24-2023 VIT D 25-OH 11.6 ng/mL Normal [facility] Comment on above: Performed By: #### C BC #### [facility] [address] [place] [address] Dr. David Magana VIT D RANGES SEE BELOW Normal [facility] Comment on above: Result Comment: <20 ng/mL Vit D deficient 20 - <30 ng/mL Vit D insufficient 30 - 100 ng/mL Vit D sufficient >100 ng/mL Potential Toxicity Performed By: #### C BC #### [facility] [address] [place] [address] Dr. David Magana CBC AUTO DIFFon 02-27-2023 BASO # 0.0 103/ul Normal 0.0-0.1 [facility] Comment on above: Performed By: #### M ERICK Faith, PHOS #### [facility] [address] [place] [address] Dr. David Magana Basophils/100 WBC (Bld) 0.5 % Normal 0.2-2.0 [facility] Comment on above: Performed By: #### ERICK Jacques, PHOS #### [facility] [address] [place] [address] Dr. David Magana EO # 0.7 103/ul Normal 0.0-0.7 [facility] Comment on above: Performed By: #### M ERICK Faith, PHOS #### [facility] [address] [place] [address] Dr. David Magana Eosinophils/100 WBC (Bld) 9.3 % Critically high 0.9-7.0 [facility] Comment on above: Performed By: #### M ERICK Faith, PHOS #### [facility] [address] [place] [address] Dr. David Magana Erythrocyte distribution width (RBC) [Ratio] 14.6 % Normal 11.0-15.0 [facility] Comment on above: Performed By: #### M ERICK Faith, PHOS #### [facility] [address] [place] [address] Dr. David Magana Hematocrit (Bld) [Volume fraction] 41.5 % Critically low 42.0-54.0 [facility] Comment on above: Performed By: #### M ERICK Faith, PHOS #### [facility] [address] [place] [address] Dr. David Magana Hemoglobin (Bld) [Mass/Vol] 13.9 g/dL Critically low 14.0-18.0 [facility] Comment on above: Performed By: #### M ERICK Faith, PHOS #### [facility] [address] [place] [address] Dr. David Magana IG # 0.02 10e3/ul Normal 0.00-0.03 [facility] Comment on above: Performed By: #### ERICK Jacques, PHOS #### [facility] [address] [place] [address] Dr. David Magana IG % 0.3 % Normal 0.0-0.5 [facility] Comment on above: Performed By: #### M ERICK Faith, PHOS #### [facility] [address] [place] [address] Dr. David Magana LYMPH # 1.0 103/ul Critically low 1.2-3.[address] [facility] Comment on above: Performed By: #### ERICK Jacques, PHOS #### [facility] [address] [place] [address] Dr. David Magana Lymphocytes/100 WBC (Bld) 13.0 % Critically low 20.5-60.0 [facility] Comment on above: Performed By: #### M ERICK Faith, PHOS #### [facility] [address] [place] [address] Dr. David Magana MANUAL DIFF REQ NO Normal [facility] Comment on above: Performed By: #### ERICK Jacques, PHOS #### [facility] [address] [place] [address] Dr. David Magana MCH (RBC) [Entitic mass] 33.5 pg Normal 25.9-34.[address] [facility] Comment on above: Performed By: #### M ERICK Faith, PHOS #### [facility] [address] [place] [address] Dr. David Magana MCHC (RBC) [Mass/Vol] 33.5 g/dL Normal 29.9-35.[address] [facility] Comment on above: Performed By: #### M ERICK Faith, PHOS #### [facility] [address] [place] [address] Dr. David Magana MCV (RBC) [Entitic vol] 100.0 fL Critically high 80.0-94.[address] [facility] Comment on above: Performed By: #### M ERICK Faith, PHOS #### [facility] [address] [place] [address] Dr. David Maagna MONO # 0.8 103/ul Normal 0.3-0.[address] [facility] Comment on above: Performed By: #### ERICK Jacques, PHOS #### [facility] [address] [place] [address] Dr. David Magana Monocytes/100 WBC (Bld) 10.1 % Normal 1.7-12.[address] [facility] Comment on above: Performed By: #### M ERICK Faith, PHOS #### [facility] [address] [place] [address] Dr. David Magana NEUT # 5.0 103/ul Normal 1.4-6.[address] [facility] Comment on above: Performed By: #### M ERICK Faith, PHOS #### [facility] [address] [place] [address] Dr. David Magana Neutrophils/100 WBC (Bld) 66.8 % Normal 43.0-75.[address] [facility] Comment on above: Performed By: #### M ERICK Faith, PHOS #### [facility] [address] [place] [address] Dr. David Magana Platelet mean volume (Bld) [Entitic vol] 11.2 fL Normal 9.5-13.5 [facility] Comment on above: Performed By: #### M ERICK Faith, PHOS #### [facility] [address] [place] [address] Dr. David Magana PLT 187 103/ul Normal 150-450 [facility] Comment on above: Performed By: #### M ERICK Faith, PHOS #### [facility] [address] [place] [address] Dr. David Magana RBC 4.15 106/ul Critically low 4.70-6.10 [facility] Comment on above: Performed By: #### M ERICK Faith, PHOS #### [facility] [address] [place] [address] Dr. David Magana WBC 7.5 103/ul Normal 4.0-11.0 [facility] Comment on above: Performed By: #### ERICK Jacques, PHOS #### [facility] [address] [place] [address] Dr. David Magana PROF 14(COMP METB)on 023 Albumin [Mass/Vol] 3.5 g/dL Normal 3.4-5.0 [facility] Comment on above: Performed By: #### A 1C #### [facility] [address] [place] [address] Dr. David Magana Albumin/Globulin [Mass ratio] 1.1 {ratio} Normal [facility] Comment on above: Performed By: #### A 1C #### [facility] [address] [place] [address] Dr. David Magana ALP [Catalytic activity/Vol] 76 U/L Normal 46-116 [facility] Comment on above: Performed By: #### A 1C #### [facility] [address] [place] [address] Dr. David Magana ALT [Catalytic activity/Vol] 23 U/L Normal 16-63 [facility] Comment on above: Performed By: #### A 1C #### [facility] [address] [place] [address] Dr. David Magana Anion gap [Moles/Vol] 13.1 mmol/L Normal [facility] Comment on above: Performed By: #### A 1C #### [facility] [address] [address] [address] David Magana AST [Catalytic activity/Vol] 17 U/L Normal 15-37 [facility] Comment on above: Performed By: #### A 1C #### [facility] [address] [address] [address] David Magana Bilirubin [Mass/Vol] 0.7 mg/dL Normal 0.2-1.0 [facility] Comment on above: Performed By: #### A 1C #### [facility] [address] [address] [address] David Magana Calcium [Mass/Vol] 9.0 mg/dL Normal 8.5-10.1 [facility] Comment on above: Performed By: #### A 1C #### [facility] [address] [address] [address] David aMgana Chloride [Moles/Vol] 105 mmol/L Normal 98-107 [facility] Comment on above: Performed By: #### A 1C #### [facility] [address] [address] [address] David Magana CO2 [Moles/Vol] 29.0 mmol/L Normal 21.0-32.0 [facility] Comment on above: Performed By: #### A 1C #### [facility] [address] [address] [address] David Magana Creatinine [Mass/Vol] 1.77 mg/dL Critically high 0.70-1.30 [facility] Comment on above: Performed By: #### A 1C #### [facility] [address] [address] [address] David Mgaana EGFR-AF MONTSERRATIAN 45 mL/min/1.73m2 Critically low >=60 [facility] Comment on above: Performed By: #### A 1C #### [facility] [address] [address] [address] David Magana EGFR-NON AF MONTSERRATIAN 37 mL/min/1.73m2 Critically low >=60 [facility] Comment on above: Performed By: #### A 1C #### [facility] [address] [address] [address] David Magana Globulin (S) [Mass/Vol] 3.3 g/dL Normal [facility] Comment on above: Performed By: #### A 1C #### [facility] [address] [address] [address] David Magana Glucose [Mass/Vol] 135 mg/dL Critically high 74-106 [facility] Comment on above: Performed By: #### A 1C #### [facility] [address] [address] [address] David Magana Potassium [Moles/Vol] 4.1 mmol/L Normal 3.5-5.1 [facility] Comment on above: Performed By: #### A 1C #### [facility] [address] [place] [address] Dr. David Magana Protein [Mass/Vol] 6.8 g/dL Normal 6.4-8.2 [facility] Comment on above: Performed By: #### A 1C #### [facility] [address] [place] [address] Dr. David Magana Sodium [Moles/Vol] 143 mmol/L Normal 136-145 [facility] Comment on above: Performed By: #### A 1C #### [facility] [address] [place] [address] Dr. David Magana Urea nitrogen [Mass/Vol] 31.0 mg/dL Critically high 7.0-18.0 [facility] Comment on above: Performed By: #### A 1C #### [facility] [address] [place] [address] Dr. David Magana Urea nitrogen/Creatinine [Mass ratio] 17.5 mg/mg Normal [facility] Comment on above: Performed By: #### A 1C #### [facility] [address] [place] [address] Dr. David Magana PROTIMEon 02-27-2023 INR Coag (PPP) [Relative time] 0.99 {INR} Normal [facility] Comment on above: Performed By: #### A 1C #### [facility] [address] [place] [address] Dr. David Magana INR GUIDELINES SEE BELOW Normal [facility] Comment on above: Result Comment: IDANIA RED INR: 2.0 - 3.0 CONDITIONS NOT LISTED BELOW 2.5 - 3.5 FOR PROSTHETIC HEART VALVE REPLACEMENT 2.5 - 3.5 RECURRENT THROMBOSIS Performed By: #### A 1C #### [facility] [address] [place] [address] Dr. David Magana PT Coag (PPP) [Time] 10.5 s Normal 9.0-11.[address] [facility] Comment on above: Performed By: #### A 1C #### [facility] [address] [place] [address] Dr. David Magana PTTon 02-27-2023 aPTT Coag (Bld) [Time] 33.0 s Normal 22.3-36.2 [facility] Comment on above: Performed By: #### P OCGLUC #### [facility] [address] [place] [address] Dr. David Magana ALBUMINon 12-28-2022 Albumin [Mass/Vol] 3.6 g/dL Normal 3.4-5.0 [facility] Comment on above: Performed By: #### C BC #### [facility] [address] [place] [address] Dr. David Magana GLYCOHEMOGLOBIN A1Con 2022 ADA RECOMMENDATION SEE BELOW Normal [facility] Comment on above: Result Comment: ADA RECOMMENDED LIMIT 4.0 - 6.0 ADA THERAPEUTIC TARGET < 7.0 ACTION SUGGESTED > 7.0 Performed By: #### P OCGLUC #### [facility] [address] [place] [address] Dr. David Magana Glucose [Mass/Vol] 140 mg/dL Normal [facility] Comment on above: Performed By: #### P OCGLUC #### [facility] [address] [place] [address] Dr. David Magana HbA1c (Bld) [Mass fraction] 6.5 % Critically high 4.5-6.2 [facility] Comment on above: Performed By: #### P OCGLUC #### [facility] [address] [address] [address] David aMgana MAGNESIUMon 12-28-2022 Magnesium [Mass/Vol] 2.3 mg/dL Normal 1.8-2.4 [facility] Comment on above: Performed By: #### P OCGLUC #### [facility] [address] [place] [address] Dr. David Magana PROF CHEM 8 (BAS METB)on Anion gap [Moles/Vol] 13.2 mmol/L Normal [facility] Comment on above: Performed By: #### P OCGLUC #### [facility] [address] [place] [address] Dr. David Magana Calcium [Mass/Vol] 9.0 mg/dL Normal 8.5-10.1 [facility] Comment on above: Performed By: #### P OCGLUC #### [facility] [address] [place] [address] Dr. David Magana Chloride [Moles/Vol] 105 mmol/L Normal 98-107 [facility] Comment on above: Performed By: #### P OCGLUC #### [facility] [address] [place] [address] Dr. David Magana CO2 [Moles/Vol] 28.9 mmol/L Normal 21.0-32.0 [facility] Comment on above: Performed By: #### P OCGLUC #### [facility] [address] [place] [address] Dr. David Magana Creatinine [Mass/Vol] 1.66 mg/dL Critically high 0.70-1.30 [facility] Comment on above: Performed By: #### P OCGLUC #### [facility] [address] [place] [address] Dr. David Magana EGFR-AF MONTSERRATIAN 48 mL/min/1.73m2 Critically low >=[address] [facility] Comment on above: Performed By: #### P OCGLUC #### [facility] [address] [place] [address] Dr. David Magana EGFR-NON AF MONTSERRATIAN 40 mL/min/1.73m2 Critically low >=60 [facility] Comment on above: Performed By: #### P OCGLUC #### [facility] [address] [address] [address] David Magana Glucose [Mass/Vol] 123 mg/dL Critically high 74-106 [facility] Comment on above: Performed By: #### P OCGLUC #### [facility] [address] [address] [address] David Magana Potassium [Moles/Vol] 4.1 mmol/L Normal 3.5-5.1 [facility] Comment on above: Performed By: #### P OCGLUC #### [facility] [address] [address] [address] David Magana Sodium [Moles/Vol] 143 mmol/L Normal 136-145 [facility] Comment on above: Performed By: #### P OCGLUC #### [facility] [address] [address] [address] David Magana Urea nitrogen [Mass/Vol] 29.0 mg/dL Critically high 7.0-18.0 [facility] Comment on above: Performed By: #### P OCGLUC #### [facility] [address] [address] [address] David Magana Urea nitrogen/Creatinine [Mass ratio] 17.5 mg/mg Normal [facility] Comment on above: Performed By: #### P OCGLUC #### [facility] [address] [address] [address] David Magana URINE T PROTEIN CREAT RATIOo n 12-28-2022 UR TOTAL PROTEIN <6.0 Normal <=12.0 [facility] Comment on above: Performed By: #### ERICK Jacques PHOS #### [facility] [address] [address] [address] David Magana URINE CREAT 41.21 mg/dL Normal 20.00-300.[address] [facility] Comment on above: Performed By: #### ERICK Jacques PHOS #### [facility] [address] [place] [address] Dr. David Magana ALBUMINon 11-16-2022 Albumin [Mass/Vol] 3.3 g/dL Critically low 3.4-5.0 [facility] Comment on above: Performed By: #### C BC #### [facility] [address] [place] [address] Dr. David Magana CREATININE URINEon URINE CREAT 19.69 mg/dL Critically low 20.00-300.00 [facility] Comment on above: Performed By: #### M ERICK Faith, PHOS #### [facility] [address] [place] [address] Dr. David Magana HEMOGLOBINon 11-16-2022 Hemoglobin (Bld) [Mass/Vol] 14.9 g/dL Normal 14.0-18.0 [facility] Comment on above: Performed By: #### ERICK Jacques, PHOS #### [facility] [address] [place] [address] Dr. David Magana MAGNESIUMon 11-16-2022 Magnesium [Mass/Vol] 2.2 mg/dL Normal 1.8-2.4 [facility] Comment on above: Performed By: #### C BC #### [facility] [address] [place] [address] Dr. David Magana PHOSPHORUSon 11-16-2022 Phosphate [Mass/Vol] 3.9 mg/dL Normal 2.6-4.7 [facility] Comment on above: Performed By: #### C BC #### [facility] [address] [place] [address] Dr. David Magana PROF CHEM 8 (BAS METB)on Anion gap [Moles/Vol] 11.9 mmol/L Normal [facility] Comment on above: Performed By: #### C BC #### [facility] [address] [place] [address] Dr. David Magana Calcium [Mass/Vol] 8.8 mg/dL Normal 8.5-10.1 [facility] Comment on above: Performed By: #### C BC #### [facility] [address] [address] [address] David Magana Chloride [Moles/Vol] 104 mmol/L Normal 98-107 [facility] Comment on above: Performed By: #### C BC #### [facility] [address] [address] [address] David Magana CO2 [Moles/Vol] 27.4 mmol/L Normal 21.0-32.0 [facility] Comment on above: Performed By: #### C BC #### [facility] [address] [address] [address] David Magana Creatinine [Mass/Vol] 1.68 mg/dL Critically high 0.70-1.30 [facility] Comment on above: Performed By: #### C BC #### [facility] [address] [address] [address] David Magana EGFR-AF MONTSERRATIAN 48 mL/min/1.73m2 Critically low >=60 [facility] Comment on above: Performed By: #### C BC #### [facility] [address] [address] [address] David Magana EGFR-NON AF MONTSERRATIAN 39 mL/min/1.73m2 Critically low >=60 [facility] Comment on above: Performed By: #### C BC #### [facility] [address] [address] [address] David Magana Glucose [Mass/Vol] 212 mg/dL Critically high 74-106 [facility] Comment on above: Performed By: #### C BC #### [facility] [address] [address] [address] David Magana Potassium [Moles/Vol] 4.3 mmol/L Normal 3.5-5.1 [facility] Comment on above: Performed By: #### C BC #### [facility] [address] [address] [address] David Magana Sodium [Moles/Vol] 139 mmol/L Normal 136-145 [facility] Comment on above: Performed By: #### C BC #### [facility] [address] [place] [address] Dr. David Magana Urea nitrogen [Mass/Vol] 25.0 mg/dL Critically high 7.0-18.0 [facility] Comment on above: Performed By: #### C BC #### [facility] [address] [place] [address] Dr. David Magana Urea nitrogen/Creatinine [Mass ratio] 14.9 mg/mg Normal [facility] Comment on above: Performed By: #### C BC #### [facility] [address] [place] [address] Dr. David Magana PROTEIN RAND URINEon 023 UR PROT <5.0 Normal <=11.9 [facility] Comment on above: Performed By: #### ERICK Jacques PHOS #### [facility] [address] [place] [address] Dr. David Magana US CHANI DOP LEG [...] CLOVER PEREZ Date: 2022-11-02 16:[address] [facility] BNPon 07-22-2022 Natriuretic peptide B (Bld) [Mass/Vol] 2143.0 pg/mL Critically high <=1,800.[address] [facility] Comment on above: Performed By: #### ERICK Jacques, PHOS #### [facility] [address] [place] [address] Dr. David Magana CBC AUTO DIFFon 07-22-2022 BASO # 0.0 103/ul Normal 0.0-0.1 [facility] Comment on above: Performed By: #### A 1C #### [facility] [address] [place] [address] Dr. David Magana Basophils/100 WBC (Bld) 0.3 % Normal 0.2-2.0 [facility] Comment on above: Performed By: #### A 1C #### [facility] [address] [place] [address] Dr. David Magana EO # 0.3 103/ul Normal 0.0-0.7 [facility] Comment on above: Performed By: #### A 1C #### [facility] [address] [place] [address] Dr. David Magana Eosinophils/100 WBC (Bld) 2.4 % Normal 0.9-7.0 [facility] Comment on above: Performed By: #### A 1C #### [facility] [address] [place] [address] Dr. David Magana Erythrocyte distribution width (RBC) [Ratio] 13.4 % Normal 11.0-15.0 [facility] Comment on above: Performed By: #### A 1C #### [facility] [address] [place] [address] Dr. David Magana Hematocrit (Bld) [Volume fraction] 42.7 % Normal 42.0-54.0 [facility] Comment on above: Performed By: #### A 1C #### [facility] [address] [place] [address] Dr. David Magana Hemoglobin (Bld) [Mass/Vol] 14.2 g/dL Normal 14.0-18.0 [facility] Comment on above: Performed By: #### A 1C #### [facility] [address] [place] [address] Dr. David Magana IG # 0.18 10e3/ul Critically high 0.00-0.03 [facility] Comment on above: Performed By: #### A 1C #### [facility] [address] [place] [address] Dr. David Magana IG % 1.6 % Critically high 0.0-0.5 [facility] Comment on above: Performed By: #### A 1C #### [facility] [address] [place] [address] Dr. David Magana LYMPH # 0.9 103/ul Critically low 1.2-3.[address] [facility] Comment on above: Performed By: #### A 1C #### [facility] [address] [place] [address] Dr. David Magana Lymphocytes/100 WBC (Bld) 8.1 % Critically low 20.5-60.0 [facility] Comment on above: Performed By: #### A 1C #### [facility] [address] [place] [address] Dr. David Magana MANUAL DIFF REQ NO Normal [facility] Comment on above: Performed By: #### A 1C #### [facility] [address] [place] [address] Dr. David Magana MCH (RBC) [Entitic mass] 33.3 pg Normal 25.9-34.0 [facility] Comment on above: Performed By: #### A 1C #### [facility] [address] [place] [address] Dr. David Magana MCHC (RBC) [Mass/Vol] 33.3 g/dL Normal 29.9-35.2 [facility] Comment on above: Performed By: #### A 1C #### [facility] [address] [place] [address] Dr. David Magana MCV (RBC) [Entitic vol] 100.2 fL Critically high 80.0-94.0 [facility] Comment on above: Performed By: #### A 1C #### [facility] [address] [place] [address] Dr. David Magana MONO # 1.2 103/ul Critically high 0.3-0.8 [facility] Comment on above: Performed By: #### A 1C #### [facility] [address] [place] [address] Dr. David Magana Monocytes/100 WBC (Bld) 10.5 % Normal 1.7-12.0 [facility] Comment on above: Performed By: #### A 1C #### [facility] [address] [place] [address] Dr. David Magana NEUT # 8.9 103/ul Critically high 1.4-6.5 [facility] Comment on above: Performed By: #### A 1C #### [facility] [address] [place] [address] Dr. David Magana Neutrophils/100 WBC (Bld) 77.1 % Critically high 43.0-75.0 [facility] Comment on above: Performed By: #### A 1C #### [facility] [address] [place] [address] Dr. David Magana Platelet mean volume (Bld) [Entitic vol] 11.3 fL Normal 9.5-13.5 [facility] Comment on above: Performed By: #### A 1C #### [facility] [address] [place] [address] Dr. David Magana PLT 175 103/ul Normal 150-450 [facility] Comment on above: Performed By: #### A 1C #### [facility] [address] [place] [address] Dr. David aMgana RBC 4.26 106/ul Critically low 4.70-6.10 [facility] Comment on above: Performed By: #### A 1C #### [facility] [address] [place] [address] Dr. David Magana WBC 11.5 103/ul Critically high 4.0-11.0 [facility] Comment on above: Performed By: #### A 1C #### [facility] [address] [place] [address] Dr. David Magana PROF 14(COMP METB)on 022 Albumin [Mass/Vol] 2.6 g/dL Critically low 3.4-5.0 [facility] Comment on above: Performed By: #### ERICK Jacques PHOS #### [facility] [address] [place] [address] Dr. David Magana Albumin/Globulin [Mass ratio] 0.9 {ratio} Normal [facility] Comment on above: Performed By: #### ERICK Jacques PHOS #### [facility] [address] [place] [address] Dr. David Magana ALP [Catalytic activity/Vol] 49 U/L Normal 46-116 [facility] Comment on above: Performed By: #### ERICK Jacques, PHOS #### [facility] [address] [address] [address] David Magana ALT [Catalytic activity/Vol] 25 U/L Normal 16-63 [facility] Comment on above: Performed By: #### ERICK Jacques, PHOS #### [facility] [address] [address] [address] David Magana Anion gap [Moles/Vol] 12.8 mmol/L Normal [facility] Comment on above: Performed By: #### ERICK Jacques, PHOS #### [facility] [address] [place] [address] Dr. David Magana AST [Catalytic activity/Vol] 9 U/L Critically low 15-37 [facility] Comment on above: Performed By: #### ERICK Jacques, PHOS #### [facility] [address] [place] [address] Dr. David Magana Bilirubin [Mass/Vol] 0.5 mg/dL Normal 0.2-1.0 [facility] Comment on above: Performed By: #### ERICK Jacques, PHOS #### [facility] [address] [place] [address] Dr. David Magana Calcium [Mass/Vol] 8.3 mg/dL Critically low 8.5-10.1 [facility] Comment on above: Performed By: #### ERICK Jacques, PHOS #### [facility] [address] [place] [address] Dr. David Magana Chloride [Moles/Vol] 105 mmol/L Normal 98-107 [facility] Comment on above: Performed By: #### ERICK Jacques, PHOS #### [facility] [address] [place] [address] Dr. David Magana CO2 [Moles/Vol] 24.2 mmol/L Normal 21.0-32.0 [facility] Comment on above: Performed By: #### ERICK Jacques, PHOS #### [facility] [address] [address] [address] David Magana Creatinine [Mass/Vol] 1.28 mg/dL Normal 0.70-1.30 [facility] Comment on above: Performed By: #### M G, BMP, PHOS #### [facility] [address] [address] [address] David Magana EGFR-AF MONTSERRATIAN >60 Normal >=60 [facility] Comment on above: Performed By: #### M G, BMP, PHOS #### [facility] [address] [address] [address] David Magana EGFR-NON AF MONTSERRATIAN 54 mL/min/1.73m2 Critically low >=60 [facility] Comment on above: Performed By: #### M G, BMP, PHOS #### [facility] [address] [place] [address] Dr. David Magana Globulin (S) [Mass/Vol] 2.9 g/dL Normal [facility] Comment on above: Performed By: #### M G, BMP, PHOS #### [facility] [address] [address] [address] David Magana Glucose [Mass/Vol] 205 mg/dL Critically high 74-106 [facility] Comment on above: Performed By: #### M G, BMP, PHOS #### [facility] [address] [address] [address] David Magana Potassium [Moles/Vol] 4.0 mmol/L Normal 3.5-5.1 [facility] Comment on above: Performed By: #### M G, BMP, PHOS #### [facility] [address] [address] [address] David Magana Protein [Mass/Vol] 5.5 g/dL Critically low 6.4-8.2 [facility] Comment on above: Performed By: #### M G, BMP, PHOS #### [facility] [address] [address] [address] David Magana Sodium [Moles/Vol] 138 mmol/L Normal 136-145 [facility] Comment on above: Performed By: #### ERICK Jacques PHOS #### [facility] [address] [place] [address] Dr. David Magana Urea nitrogen [Mass/Vol] 36.0 mg/dL Critically high 7.0-18.0 [facility] Comment on above: Performed By: #### ERICK Jacques PHOS #### [facility] [address] [place] [address] Dr. David Magana Urea nitrogen/Creatinine [Mass ratio] 28.1 mg/mg Normal [facility] Comment on above: Performed By: #### ERICK Jacques PHOS #### [facility] [address] [place] [address] Dr. David Magana BNPon 07-21-2022 Natriuretic peptide B (Bld) [Mass/Vol] 3485.0 pg/mL Critically high <=1,800.0 [facility] Comment on above: Result Comment: repe ated Performed By: #### A 1C #### [facility] [address] [place] [address] Dr. David Magana CBC AUTO DIFFon 07-21-2022 BASO # 0.0 103/ul Normal 0.0-0.1 [facility] Comment on above: Performed By: #### C BC #### [facility] [address] [place] [address] Dr. David Magana Basophils/100 WBC (Bld) 0.3 % Normal 0.2-2.0 [facility] Comment on above: Performed By: #### C BC #### [facility] [address] [place] [address] Dr. David Magana EO # 0.2 103/ul Normal 0.0-0.7 [facility] Comment on above: Performed By: #### C BC #### [facility] [address] [place] [address] Dr. David Magana Eosinophils/100 WBC (Bld) 1.9 % Normal 0.9-7.0 [facility] Comment on above: Performed By: #### C BC #### [facility] [address] [place] [address] Dr. David Magana Erythrocyte distribution width (RBC) [Ratio] 13.4 % Normal 11.0-15.0 [facility] Comment on above: Performed By: #### C BC #### [facility] [address] [place] [address] Dr. David Magana Hematocrit (Bld) [Volume fraction] 42.5 % Normal 42.0-54.0 [facility] Comment on above: Performed By: #### C BC #### [facility] [address] [place] [address] Dr. David Magana Hemoglobin (Bld) [Mass/Vol] 14.2 g/dL Normal 14.0-18.0 [facility] Comment on above: Performed By: #### C BC #### [facility] [address] [place] [address] Dr. David Magana IG # 0.22 10e3/ul Critically high 0.00-0.03 [facility] Comment on above: Performed By: #### C BC #### [facility] [address] [place] [address] Dr. David Magana IG % 2.1 % Critically high 0.0-0.5 [facility] Comment on above: Performed By: #### C BC #### [facility] [address] [place] [address] Dr. David Magana LYMPH # 0.8 103/ul Critically low 1.2-3.8 [facility] Comment on above: Performed By: #### C BC #### [facility] [address] [place] [address] Dr. David Magana Lymphocytes/100 WBC (Bld) 7.7 % Critically low 20.5-60.0 [facility] Comment on above: Performed By: #### C BC #### [facility] [address] [place] [address] Dr. David Magana MANUAL DIFF REQ NO Normal [facility] Comment on above: Performed By: #### C BC #### [facility] [address] [address] [address] David Magana MCH (RBC) [Entitic mass] 33.0 pg Normal 25.9-34.[address] [facility] Comment on above: Performed By: #### C BC #### [facility] [address] [place] [address] Dr. David Magana MCHC (RBC) [Mass/Vol] 33.4 g/dL Normal 29.9-35.[address] [facility] Comment on above: Performed By: #### C BC #### [facility] [address] [place] [address] Dr. David Magana MCV (RBC) [Entitic vol] 98.8 fL Critically high 80.0-94.0 [facility] Comment on above: Performed By: #### C BC #### [facility] [address] [place] [address] Dr. David Magana MONO # 1.0 103/ul Critically high 0.3-0.8 [facility] Comment on above: Performed By: #### C BC #### [facility] [address] [place] [address] Dr. David Magana Monocytes/100 WBC (Bld) 9.7 % Normal 1.7-12.0 [facility] Comment on above: Performed By: #### C BC #### [facility] [address] [place] [address] Dr. David Magana NEUT # 8.1 103/ul Critically high 1.4-6.5 [facility] Comment on above: Performed By: #### C BC #### [facility] [address] [place] [address] Dr. David Magana Neutrophils/100 WBC (Bld) 78.3 % Critically high 43.0-75.[address] [facility] Comment on above: Performed By: #### C BC #### [facility] [address] [place] [address] Dr. David Magana Platelet mean volume (Bld) [Entitic vol] 10.7 fL Normal 9.5-13.[address] [facility] Comment on above: Performed By: #### C BC #### [facility] [address] [place] [address] Dr. David Magana PLT 177 103/ul Normal 150-450 [facility] Comment on above: Performed By: #### C BC #### [facility] [address] [place] [address] Dr. David Magana RBC 4.30 106/ul Critically low 4.70-6.10 [facility] Comment on above: Performed By: #### C BC #### [facility] [address] [place] [address] Dr. David Magana WBC 10.4 103/ul Normal 4.0-11.0 [facility] Comment on above: Performed By: #### C BC #### [facility] [address] [place] [address] Dr. David Magana PROF 14(COMP METB)on 022 Albumin [Mass/Vol] 2.6 g/dL Critically low 3.4-5.0 [facility] Comment on above: Performed By: #### A 1C #### [facility] [address] [place] [address] Dr. David Magana Albumin/Globulin [Mass ratio] 1.0 {ratio} Normal [facility] Comment on above: Performed By: #### A 1C #### [facility] [address] [place] [address] Dr. David Magana ALP [Catalytic activity/Vol] 50 U/L Normal 46-116 [facility] Comment on above: Performed By: #### A 1C #### [facility] [address] [place] [address] Dr. David Magana ALT [Catalytic activity/Vol] 28 U/L Normal 16-63 [facility] Comment on above: Performed By: #### A 1C #### [facility] [address] [place] [address] Dr. David Magana Anion gap [Moles/Vol] 11.4 mmol/L Normal [facility] Comment on above: Performed By: #### A 1C #### [facility] [address] [address] [address] David Magana AST [Catalytic activity/Vol] 13 U/L Critically low 15-37 [facility] Comment on above: Performed By: #### A 1C #### [facility] [address] [place] [address] Dr. David Magana Bilirubin [Mass/Vol] 0.4 mg/dL Normal 0.2-1.0 [facility] Comment on above: Performed By: #### A 1C #### [facility] [address] [place] [address] Dr. David Magana Calcium [Mass/Vol] 8.4 mg/dL Critically low 8.5-10.[address] [facility] Comment on above: Performed By: #### A 1C #### [facility] [address] [place] [address] Dr. David Magana Chloride [Moles/Vol] 107 mmol/L Normal 98-107 [facility] Comment on above: Performed By: #### A 1C #### [facility] [address] [place] [address] Dr. David Magana CO2 [Moles/Vol] 24.6 mmol/L Normal 21.0-32.0 [facility] Comment on above: Performed By: #### A 1C #### [facility] [address] [place] [address] Dr. David Magana Creatinine [Mass/Vol] 1.26 mg/dL Normal 0.70-1.30 [facility] Comment on above: Performed By: #### A 1C #### [facility] [address] [place] [address] Dr. David Magana EGFR-AF MONTSERRATIAN >60 Normal >=60 [facility] Comment on above: Performed By: #### A 1C #### [facility] [address] [place] [address] Dr. David Magana EGFR-NON AF MONTSERRATIAN 55 mL/min/1.73m2 Critically low >=[address] [facility] Comment on above: Performed By: #### A 1C #### [facility] [address] [place] [address] Dr. David Magana Globulin (S) [Mass/Vol] 2.7 g/dL Normal [facility] Comment on above: Performed By: #### A 1C #### [facility] [address] [place] [address] Dr. David Magana Glucose [Mass/Vol] 203 mg/dL Critically high 74-106 [facility] Comment on above: Performed By: #### A 1C #### [facility] [address] [place] [address] Dr. David Magana Potassium [Moles/Vol] 4.0 mmol/L Normal 3.5-5.1 [facility] Comment on above: Performed By: #### A 1C #### [facility] [address] [place] [address] Dr. David Magana Protein [Mass/Vol] 5.3 g/dL Critically low 6.4-8.2 [facility] Comment on above: Performed By: #### A 1C #### [facility] [address] [place] [address] Dr. David Magana Sodium [Moles/Vol] 139 mmol/L Normal 136-145 [facility] Comment on above: Performed By: #### A 1C #### [facility] [address] [place] [address] Dr. David Magana Urea nitrogen [Mass/Vol] 33.0 mg/dL Critically high 7.0-18.0 [facility] Comment on above: Performed By: #### A 1C #### [facility] [address] [place] [address] Dr. David Magana Urea nitrogen/Creatinine [Mass ratio] 26.2 mg/mg Normal [facility] Comment on above: Performed By: #### A 1C #### [facility] [address] [place] [address] Dr. David Magana BNPon 07-20-2022 Natriuretic peptide B (Bld) [Mass/Vol] 7478.0 pg/mL Critically high <=1,800.0 [facility] Comment on above: Performed By: #### A 1C #### [facility] [address] [place] [address] Dr. David Magana CBC AUTO DIFFon 07-20-2022 BASO # 0.1 103/ul Normal 0.0-0.1 [facility] Comment on above: Performed By: #### M G, BMP, PHOS #### [facility] [address] [address] [address] David Magana Basophils/100 WBC (Bld) 0.8 % Normal 0.2-2.0 [facility] Comment on above: Performed By: #### M G, BMP, PHOS #### [facility] [address] [address] [address] David Magana EO # 0.1 103/ul Normal 0.0-0.7 [facility] Comment on above: Performed By: #### M G, BMP, PHOS #### [facility] [address] [place] [address] Dr. David Magana Eosinophils/100 WBC (Bld) 0.6 % Critically low 0.9-7.0 [facility] Comment on above: Performed By: #### M G, BMP, PHOS #### [facility] [address] [place] [address] Dr. David Magana Erythrocyte distribution width (RBC) [Ratio] 13.4 % Normal 11.0-15.0 [facility] Comment on above: Performed By: #### M G, BMP, PHOS #### [facility] [address] [place] [address] Dr. David Magana Hematocrit (Bld) [Volume fraction] 43.2 % Normal 42.0-54.0 [facility] Comment on above: Performed By: #### M G, BMP, PHOS #### [facility] [address] [place] [address] Dr. David Magana Hemoglobin (Bld) [Mass/Vol] 14.2 g/dL Normal 14.0-18.0 [facility] Comment on above: Performed By: #### M G, BMP, PHOS #### [facility] [address] [place] [address] Dr. David Magana IG # 0.21 10e3/ul Critically high 0.00-0.03 [facility] Comment on above: Performed By: #### M ERICK Faith, PHOS #### [facility] [address] [place] [address] Dr. David Magana IG % 2.0 % Critically high 0.0-0.5 [facility] Comment on above: Performed By: #### ERICK Jacques, PHOS #### [facility] [address] [place] [address] Dr. David Magana LYMPH # 0.8 103/ul Critically low 1.2-3.8 [facility] Comment on above: Performed By: #### ERICK Jacques, PHOS #### [facility] [address] [place] [address] Dr. David Magana Lymphocytes/100 WBC (Bld) 7.7 % Critically low 20.5-60.0 [facility] Comment on above: Performed By: #### ERICK Jacques, PHOS #### [facility] [address] [place] [address] Dr. David Magana MANUAL DIFF REQ NO Normal [facility] Comment on above: Performed By: #### ERICK Jacques, PHOS #### [facility] [address] [place] [address] Dr. David Magana MCH (RBC) [Entitic mass] 33.2 pg Normal 25.9-34.0 [facility] Comment on above: Performed By: #### ERICK Jacques, PHOS #### [facility] [address] [place] [address] Dr. David Magana MCHC (RBC) [Mass/Vol] 32.9 g/dL Normal 29.9-35.[address] [facility] Comment on above: Performed By: #### ERICK Jacques, PHOS #### [facility] [address] [place] [address] Dr. David Magana MCV (RBC) [Entitic vol] 100.9 fL Critically high 80.0-94.0 [facility] Comment on above: Performed By: #### M G, BMP, PHOS #### [facility] [address] [address] [address] David Magana MONO # 1.0 103/ul Critically high 0.3-0.8 [facility] Comment on above: Performed By: #### M G, BMP, PHOS #### [facility] [address] [address] [address] David Magana Monocytes/100 WBC (Bld) 10.0 % Normal 1.7-12.0 [facility] Comment on above: Performed By: #### M G, BMP, PHOS #### [facility] [address] [place] [address] Dr. David Magana NEUT # 8.1 103/ul Critically high 1.4-6.5 [facility] Comment on above: Performed By: #### M G, BMP, PHOS #### [facility] [address] [place] [address] Dr. David Magana Neutrophils/100 WBC (Bld) 78.9 % Critically high 43.0-75.0 [facility] Comment on above: Performed By: #### M G, BMP, PHOS #### [facility] [address] [address] [address] David Magana Platelet mean volume (Bld) [Entitic vol] 10.8 fL Normal 9.5-13.5 [facility] Comment on above: Performed By: #### M G, BMP, PHOS #### [facility] [address] [place] [address] Dr. David Magana PLT 172 103/ul Normal 150-[address] [facility] Comment on above: Performed By: #### M G, BMP, PHOS #### [facility] [address] [address] [address] David Magana RBC 4.28 106/ul Critically low 4.70-6.10 [facility] Comment on above: Performed By: #### M G, BMP, PHOS #### [facility] [address] [place] [address] Dr. David Magana WBC 10.3 103/ul Normal 4.0-11.0 [facility] Comment on above: Performed By: #### M ERICK Faith, PHOS #### [facility] [address] [place] [address] Dr. David Magana CULTURE URINEon 07-20-2022 CULTURE [...] F Trimethoprim/Sulfameth oxazole >=320 R F Normal [facility] Comment on above: Performed By: #### ERICK Jacques, PHOS #### [facility] [address] [place] [address] Dr. David Magana PROF 14(COMP METB)on 022 Albumin [Mass/Vol] 2.6 g/dL Critically low 3.4-5.0 [facility] Comment on above: Performed By: #### A 1C #### [facility] [address] [place] [address] Dr. David Magana Albumin/Globulin [Mass ratio] 0.9 {ratio} Normal [facility] Comment on above: Performed By: #### A 1C #### [facility] [address] [place] [address] Dr. David Magana ALP [Catalytic activity/Vol] 48 U/L Normal 46-116 [facility] Comment on above: Performed By: #### A 1C #### [facility] [address] [place] [address] Dr. David Magana ALT [Catalytic activity/Vol] 27 U/L Normal 16-63 [facility] Comment on above: Performed By: #### A 1C #### [facility] [address] [place], [place] [address] Dr. David Magana Anion gap [Moles/Vol] 13.4 mmol/L Normal [facility] Comment on above: Performed By: #### A 1C #### [facility] [address] [place] [address] Dr. David Magana AST [Catalytic activity/Vol] 22 U/L Normal 15-37 [facility] Comment on above: Performed By: #### A 1C #### [facility] [address] [address] [address] David Magana Bilirubin [Mass/Vol] 0.5 mg/dL Normal 0.2-1.0 [facility] Comment on above: Performed By: #### A 1C #### [facility] [address] [place] [address] Dr. David Magana Calcium [Mass/Vol] 8.3 mg/dL Critically low 8.5-10.1 [facility] Comment on above: Performed By: #### A 1C #### [facility] [address] [place] [address] Dr. David Magana Chloride [Moles/Vol] 105 mmol/L Normal 98-107 [facility] Comment on above: Performed By: #### A 1C #### [facility] [address] [place] [address] Dr. David Magana CO2 [Moles/Vol] 21.0 mmol/L Normal 21.0-32.0 [facility] Comment on above: Performed By: #### A 1C #### [facility] [address] [place] [address] Dr. David Magana Creatinine [Mass/Vol] 1.38 mg/dL Critically high 0.70-1.30 [facility] Comment on above: Performed By: #### A 1C #### [facility] [address] [place] [address] Dr. David Magana EGFR-AF MONTSERRATIAN 60 mL/min/1.73m2 Normal >=60 [facility] Comment on above: Performed By: #### A 1C #### [facility] [address] [place] [address] Dr. David Magana EGFR-NON AF MONTSERRATIAN 49 mL/min/1.73m2 Critically low >=60 [facility] Comment on above: Performed By: #### A 1C #### [facility] [address] [place] [address] Dr. David Magana Globulin (S) [Mass/Vol] 2.8 g/dL Normal [facility] Comment on above: Performed By: #### A 1C #### [facility] [address] [address] [address] David Magana Glucose [Mass/Vol] 156 mg/dL Critically high 74-106 T [facility] Comment on above: Performed By: #### A 1C #### [facility] [address] [place] [address] Dr. David Magana Potassium [Moles/Vol] 4.4 mmol/L Normal 3.5-5.1 [facility] Comment on above: Performed By: #### A 1C #### [facility] [address] [place] [address] Dr. David Magana Protein [Mass/Vol] 5.4 g/dL Critically low 6.4-8.2 [facility] Comment on above: Performed By: #### A 1C #### [facility] [address] [place] [address] Dr. David Magana Sodium [Moles/Vol] 135 mmol/L Critically low 136-145 [facility] Comment on above: Performed By: #### A 1C #### [facility] [address] [place] [address] Dr. David Magana Urea nitrogen [Mass/Vol] 40.0 mg/dL Critically high 7.0-18.0 [facility] Comment on above: Performed By: #### A 1C #### [facility] [address] [place] [address] Dr. David Magana Urea nitrogen/Creatinine [Mass ratio] 29.0 mg/mg Normal [facility] Comment on above: Performed By: #### A 1C #### [facility] [address] [place] [address] Dr. David Magana BNPon 07-19-2022 Natriuretic peptide B (Bld) [Mass/Vol] 94419.0 pg/mL Critically high <=1,800.[address] [facility] Comment on above: Performed By: #### C VDTB #### [facility] [address] [place] [address] Dr. David Magana CBC AUTO DIFFon 07-19-2022 BASO # 0.0 103/ul Normal 0.0-0.1 [facility] Comment on above: Performed By: #### C BC #### [facility] [address] [place] [address] Dr. David Magana Basophils/100 WBC (Bld) 0.3 % Normal 0.2-2.0 [facility] Comment on above: Performed By: #### C BC #### [facility] [address] [place] [address] Dr. David Magana EO # 0.0 103/ul Normal 0.0-0.[address] [facility] Comment on above: Performed By: #### C BC #### [facility] [address] [place] [address] Dr. David Magana Eosinophils/100 WBC (Bld) 0.2 % Critically low 0.9-7.0 [facility] Comment on above: Performed By: #### C BC #### [facility] [address] [place] [address] Dr. David Magana Erythrocyte distribution width (RBC) [Ratio] 13.4 % Normal 11.0-15.[address] [facility] Comment on above: Performed By: #### C BC #### [facility] [address] [place] [address] Dr. David Magana Hematocrit (Bld) [Volume fraction] 43.4 % Normal 42.0-54.0 [facility] Comment on above: Performed By: #### C BC #### [facility] [address] [place] [address] Dr. David Magana Hemoglobin (Bld) [Mass/Vol] 14.6 g/dL Normal 14.0-18.[address] [facility] Comment on above: Performed By: #### C BC #### [facility] [address] [address] [address] David Magana IG # 0.18 10e3/ul Critically high 0.00-0.03 [facility] Comment on above: Performed By: #### C BC #### [facility] [address] [address] [address] David Magana IG % 1.5 % Critically high 0.0-0.5 [facility] Comment on above: Performed By: #### C BC #### [facility] [address] [place] [address] Dr. David Magana LYMPH # 0.8 103/ul Critically low 1.2-3.[address] [facility] Comment on above: Performed By: #### C BC #### [facility] [address] [place] [address] Dr. David Magana Lymphocytes/100 WBC (Bld) 6.6 % Critically low 20.5-60.0 [facility] Comment on above: Performed By: #### C BC #### [facility] [address] [place] [address] Dr. David Magana MANUAL DIFF REQ NO Normal [facility] Comment on above: Performed By: #### C BC #### [facility] [address] [place] [address] Dr. David Magana MCH (RBC) [Entitic mass] 33.7 pg Normal 25.9-34.0 [facility] Comment on above: Performed By: #### C BC #### [facility] [address] [place] [address] Dr. David Magana MCHC (RBC) [Mass/Vol] 33.6 g/dL Normal 29.9-35.2 [facility] Comment on above: Performed By: #### C BC #### [facility] [address] [place] [address] Dr. David Magana MCV (RBC) [Entitic vol] 100.2 fL Critically high 80.0-94.0 [facility] Comment on above: Performed By: #### C BC #### [facility] [id number] David Magana MONO # 1.1 103/ul Critically high 0.3-0.8 [facility] Comment on above: Performed By: #### C BC #### [facility] [id number] David Magana Monocytes/100 WBC (Bld) 9.3 % Normal 1.7-12.[address] [facility] Comment on above: Performed By: #### C BC #### [facility] [address] [address] [address] David Magana NEUT # 9.6 103/ul Critically high 1.4-6.5 [facility] Comment on above: Performed By: #### C BC #### [facility] [address] [place] [address] Dr. Daivd Magana Neutrophils/100 WBC (Bld) 82.1 % Critically high 43.0-75.[address] [facility] Comment on above: Performed By: #### C BC #### [facility] [address] [address] [address] David Magana Platelet mean volume (Bld) [Entitic vol] 10.8 fL Normal 9.5-13.[address] [facility] Comment on above: Performed By: #### C BC #### [facility] [id number] David Magana PLT 202 103/ul Normal 150-[address] [facility] Comment on above: Performed By: #### C BC #### [facility] [address] [place] [address] Dr. David Magana RBC 4.33 106/ul Critically low 4.70-6.10 [facility] Comment on above: Performed By: #### C BC #### [facility] [id number] David Magana WBC 11.7 103/ul Critically high 4.0-11.0 [facility] Comment on above: Performed By: #### C BC #### [facility] [address] [place] [address] Dr. David Magana PROF 14(COMP METB)on 022 Albumin [Mass/Vol] 3.4 g/dL Normal 3.4-5.0 [facility] Comment on above: Performed By: #### A 1C #### [facility] [address] [place] [address] Dr. David Magana Albumin/Globulin [Mass ratio] 1.1 {ratio} Normal [facility] Comment on above: Performed By: #### A 1C #### [facility] [address] [place] [address] Dr. David Magana ALP [Catalytic activity/Vol] 63 U/L Normal 46-116 [facility] Comment on above: Performed By: #### A 1C #### [facility] [address] [place] [address] Dr. David Magana ALT [Catalytic activity/Vol] 34 U/L Normal 16-63 [facility] Comment on above: Performed By: #### A 1C #### [facility] [address] [place] [address] Dr. David Magana Anion gap [Moles/Vol] 20.9 mmol/L Normal [facility] Comment on above: Performed By: #### A 1C #### [facility] [address] [place] [address] Dr. David Magana AST [Catalytic activity/Vol] 18 U/L Normal 15-37 [facility] Comment on above: Performed By: #### A 1C #### [facility] [address] [place] [address] Dr. David Magana Bilirubin [Mass/Vol] 0.5 mg/dL Normal 0.2-1.0 [facility] Comment on above: Performed By: #### A 1C #### [facility] [address] [place] [address] Dr. David Magana Calcium [Mass/Vol] 8.5 mg/dL Normal 8.5-10.1 [facility] Comment on above: Performed By: #### A 1C #### [facility] [address] [place] [address] Dr. David Magana Chloride [Moles/Vol] 99 mmol/L Normal 98-107 [facility] Comment on above: Performed By: #### A 1C #### [facility] [address] [place] [address] Dr. David Magana CO2 [Moles/Vol] 19.1 mmol/L Critically low 21.0-32.0 [facility] Comment on above: Performed By: #### A 1C #### [facility] [address] [place] [address] Dr. David Magana Creatinine [Mass/Vol] 1.80 mg/dL Critically high 0.70-1.30 [facility] Comment on above: Performed By: #### A 1C #### [facility] [address] [place] [address] Dr. David Magana EGFR-AF MONTSERRATIAN 44 mL/min/1.73m2 Critically low >=60 [facility] Comment on above: Performed By: #### A 1C #### [facility] [address] [place] [address] Dr. David Magana EGFR-NON AF MONTSERRATIAN 36 mL/min/1.73m2 Critically low >=60 [facility] Comment on above: Performed By: #### A 1C #### [facility] [address] [place] [address] Dr. David Magana Globulin (S) [Mass/Vol] 3.2 g/dL Normal [facility] Comment on above: Performed By: #### A 1C #### [facility] [address] [place] [address] Dr. David Magana Glucose [Mass/Vol] 287 mg/dL Critically high 74-106 [facility] Comment on above: Performed By: #### A 1C #### [facility] [address] [address] [address] David Magana Potassium [Moles/Vol] 5.0 mmol/L Normal 3.5-5.1 [facility] Comment on above: Performed By: #### A 1C #### [facility] [address] [place] [address] Dr. David Magana Protein [Mass/Vol] 6.6 g/dL Normal 6.4-8.2 [facility] Comment on above: Performed By: #### A 1C #### [facility] [address] [place] [address] Dr. David Magana Sodium [Moles/Vol] 134 mmol/L Critically low 136-145 [facility] Comment on above: Performed By: #### A 1C #### [facility] [address] [place] [address] Dr. David Magana Urea nitrogen [Mass/Vol] 51.0 mg/dL Critically high 7.0-18.0 [facility] Comment on above: Performed By: #### A 1C #### [facility] [address] [place] [address] Dr. David Magana Urea nitrogen/Creatinine [Mass ratio] 28.3 mg/mg [facility] Comment on above: Performed By: #### A 1C #### [facility] [address] [place] [address] Dr. David Magana BLOOD GASES [facility] 07-18-2022 02 MODE NASAL CANNULA [facility] Comment on above: Performed By: #### A 1C #### [facility] [address] [place] [address] Dr. David Magana ALLENS TEST Positive [facility] Comment on above: Performed By: #### A 1C #### [facility] [address] [place] [address] Dr. David Magana Base excess Calc (Bld) [Moles/Vol] -9.0000 mmol/L Critically low -2.0-2.0 [facility] Comment on above: Performed By: #### A 1C #### [facility] [address] [place] [address] Dr. David Magana BIPAP PRESSURE Normal [facility] Comment on above: Performed By: #### A 1C #### [facility] [address] [place] [address] Dr. David Magana CPAP [facility] Comment on above: Performed By: #### A 1C #### [facility] [address] [address] [address] David Magana FIO2 Normal [facility] Comment on above: Performed By: #### A 1C #### [facility] [address] [place] [address] Dr. David Magana HCO3 (Bld) [Moles/Vol] 18.4 mmol/L Critically low 22.0-26.0 [facility] Comment on above: Performed By: #### A 1C #### [facility] [address] [place] [address] Dr. David Magana LPM 1.5 Normal [facility] Comment on above: Performed By: #### A 1C #### [facility] [address] [place] [address] Dr. David Magana MINUTE VOLUME Normal [facility] Comment on above: Performed By: #### A 1C #### [facility] [address] [place] [address] Dr. David Magana Oxygen (Bld) [Partial pressure] 69.5 mm[Hg] Critically low 80.0-100.0 [facility] Comment on above: Performed By: #### A 1C #### [facility] [address] [place] [address] Dr. David Magana Oxygen saturation in Blood 94.2 % Critically low 95.0-100.0 [facility] Comment on above: Performed By: #### A 1C #### [facility] [address] [place] [address] Dr. David Magana PCO2 29.6 mmHg Critically low 35.0-45.0 [facility] Comment on above: Performed By: #### A 1C #### [facility] [address] [place] [address] Dr. David Magana PEEP [facility] Comment on above: Performed By: #### A 1C #### [facility] [address] [place] [address] Dr. David Magana pH (Bld) 7.355 [pH] Normal 7.350-7.450 [facility] Comment on above: Performed By: #### A 1C #### [facility] [address] [place] [address] Dr. David Magana [facility] Comment on above: Performed By: #### A 1C #### [facility] [address] [place] [address] Dr. David Magana [facility] Comment on above: Performed By: #### A 1C #### [facility] [address] [place] [address] Dr. David Magana PUNCTURE SITE LR [facility] Comment on above: Performed By: #### A 1C #### [facility] [address] [place] [address] Dr. David Magana [facility] Comment on above: Performed By: #### A 1C #### [facility] [address] [place] [address] Dr. David Magana VENT [facility] Comment on above: Performed By: #### A 1C #### [facility] [address] [place] [address] Dr. David Magana [facility] Comment on above: Performed By: #### A 1C #### [facility] [address] [place] [address] Dr. David Magana BNPon 07-18-2022 Natriuretic peptide B (Bld) [Mass/Vol] 7047.0 pg/mL Critically high <=1,800.0 [facility] Comment on above: Performed By: #### C VDTBH #### [facility] [address] [place] [address] Dr. David Magana CARDIAC BARRIE 3-6on 2 CK [Catalytic activity/Vol] 396 U/L Critically high 39-308 [facility] Comment on above: Performed By: #### M ERICK Faith, PHOS #### [facility] [address] [place] [address] Dr. David Magana CK.MB [Mass/Vol] 2.94 ng/mL Normal <=3.60 [facility] Comment on above: Performed By: #### M ERICK Faith, PHOS #### [facility] [address] [place] [address] Dr. David Magana HSTROP 11.1 pg/mL Normal 4.0-76.[address] [facility] Comment on above: Result Comment: CUT- OFF POINTS HAVE BEEN ESTABLISHED BASED ON THE FOURTH UNIVERSAL DEFINITIONS OF MYOCARDIAL INFARCTION. THE UPPER REFERENCE LIMIT (URL) OF TROPONIN, DEFINED THE 99TH PERCENTILE OF cTnI DISTRIBUTION IN A REFERENCE POPULATION, HAS BEEN CONFIRMED THE DECISION THRESHOLD FOR OR DIAGNOSIS. Performed By: #### ERICK Jacques, PHOS #### [facility] [address] [address] [address] David Magana CK [Catalytic activity/Vol] 58 U/L Normal 39-[address] [facility] Comment on above: Performed By: #### ERICK Jacques, PHOS #### [facility] [address] [place] [address] Dr. David Magana CK.MB [Mass/Vol] 1.71 ng/mL Normal <=3.60 [facility] Comment on above: Performed By: #### ERICK Jacques, PHOS #### [facility] [address] [place] [address] Dr. David Magana HSTROP 10.6 pg/mL Normal 4.0-76.[address] [facility] Comment on above: Result Comment: CUT- OFF POINTS HAVE BEEN ESTABLISHED BASED ON THE FOURTH UNIVERSAL DEFINITIONS OF MYOCARDIAL INFARCTION. THE UPPER REFERENCE LIMIT (URL) OF TROPONIN, DEFINED THE 99TH PERCENTILE OF cTnI DISTRIBUTION IN A REFERENCE POPULATION, HAS BEEN CONFIRMED THE DECISION THRESHOLD FOR OR DIAGNOSIS. Performed By: #### ERICK Jacques PHOS #### [facility] [address] [place] [address] Dr. David Magana CBC AUTO DIFFon 07-18-2022 BASO # 0.0 103/ul Normal 0.0-0.[address] [facility] Comment on above: Performed By: #### ERICK Jacques, PHOS #### [facility] [address] [place] [address] Dr. David Magana Basophils/100 WBC (Bld) 0.2 % Normal 0.2-2.[address] [facility] Comment on above: Performed By: #### ERICK Jacques, PHOS #### [facility] [address] [place] [address] Dr. David Magana EO # 0.0 103/ul Normal 0.0-0.7 [facility] Comment on above: Performed By: #### M G, BMP, PHOS #### [facility] [address] [place] [address] Dr. David Magana Eosinophils/100 WBC (Bld) 0.2 % Critically low 0.9-7.0 [facility] Comment on above: Performed By: #### M G, BMP, PHOS #### [facility] [address] [place] [address] Dr. David Magana Erythrocyte distribution width (RBC) [Ratio] 13.2 % Normal 11.0-15.0 [facility] Comment on above: Performed By: #### M G, BMP, PHOS #### [facility] [address] [place] [address] Dr. Davdi Magana Hematocrit (Bld) [Volume fraction] 43.8 % Normal 42.0-54.0 [facility] Comment on above: Performed By: #### M G, BMP, PHOS #### [facility] [address] [place] [address] Dr. David Magana Hemoglobin (Bld) [Mass/Vol] 14.5 g/dL Normal 14.0-18.0 [facility] Comment on above: Performed By: #### M G, BMP, PHOS #### [facility] [address] [place] [address] Dr. David Magana IG # 0.15 10e3/ul Critically high 0.00-0.03 [facility] Comment on above: Performed By: #### M G, BMP, PHOS #### [facility] [address] [place] [address] Dr. David Magana IG % 1.3 % Critically high 0.0-0.5 [facility] Comment on above: Performed By: #### M G, BMP, PHOS #### [facility] [address] [place] [address] Dr. David Magana LYMPH # 0.5 103/ul Critically low 1.2-3.8 [facility] Comment on above: Performed By: #### ERICK Jacques, PHOS #### [facility] [address] [place] [address] Dr. David Magana Lymphocytes/100 WBC (Bld) 3.8 % Critically low 20.5-60.0 [facility] Comment on above: Performed By: #### ERICK Jacques, PHOS #### [facility] [address] [place] [address] Dr. David Magana MANUAL DIFF REQ NO Normal [facility] Comment on above: Performed By: #### ERICK Jacques, PHOS #### [facility] [address] [place] [address] Dr. David Magana MCH (RBC) [Entitic mass] 32.7 pg Normal 25.9-34.0 [facility] Comment on above: Performed By: #### ERICK Jacques, PHOS #### [facility] [address] [place] [address] Dr. David Magana MCHC (RBC) [Mass/Vol] 33.1 g/dL Normal 29.9-35.[address] [facility] Comment on above: Performed By: #### ERICK Jacques, PHOS #### [facility] [address] [place] [address] Dr. David Magana MCV (RBC) [Entitic vol] 98.9 fL Critically high 80.0-94.0 [facility] Comment on above: Performed By: #### ERICK Jacques, PHOS #### [facility] [address] [place] [address] Dr. David Magana MONO # 0.7 103/ul Normal 0.3-0.[address] [facility] Comment on above: Performed By: #### ERICK Jacques, PHOS #### [facility] [address] [place] [address] Dr. David Magana Monocytes/100 WBC (Bld) 5.7 % Normal 1.7-12.0 [facility] Comment on above: Performed By: #### M Marcell BMP, PHOS #### [facility] [address] [address] [address] David Magana NEUT # 10.4 103/ul Critically high 1.4-6.5 [facility] Comment on above: Performed By: #### M Marcell BMP, PHOS #### [facility] [address] [place] [address] Dr. David Magana Neutrophils/100 WBC (Bld) 88.8 % Critically high 43.0-75.0 [facility] Comment on above: Performed By: #### M Marcell, BMP, PHOS #### [facility] [address] [place] [address] Dr. David Magana Platelet mean volume (Bld) [Entitic vol] 11.0 fL Normal 9.5-13.5 [facility] Comment on above: Performed By: #### ERICK Jacques, PHOS #### [facility] [address] [place] [address] Dr. David Magana PLT 198 103/ul Normal 150-[address] [facility] Comment on above: Performed By: #### ERICK Jacques, PHOS #### [facility] [address] [place] [address] Dr. David Magana RBC 4.43 106/ul Critically low 4.70-6.10 [facility] Comment on above: Performed By: #### ERICK Jacques, PHOS #### [facility] [address] [place] [address] Dr. David Magana WBC 11.8 103/ul Critically high 4.0-11.0 [facility] Comment on above: Performed By: #### M ERICK Faith, PHOS #### [facility] [address] [place] [address] HEAD WO CONon [...] FRANCISCO ZELAYA Date: 2022-07-18 05:[address] [facility] Covid-19 PCR (CVDTBH)on SARS-CoV-2 (COVID-19) RNA SULTANA+probe Ql (Unsp spec) Detected Critically abnormal NOT DETECTED [facility] Comment on above: Result Comment: This test is not yet approved or cleared by the [place] FDA. When there are no FDA-approved or cleared tests available, and other criteria are met, FDA can make tests available under an emergency access mechanism called an Emergency Use Authorization (EUA). The EUA for this test is supported by the [place] of Health and Human Service's declaration that [...] used). Performed By: #### C VDTB #### [facility] [address] [address] [address] David Magana D-DIMERon 07-18-2022 D-DIMER 1.69 mg/L FEU Critically high <=0.59 [facility] Comment on above: Performed By: #### C BC #### [facility] [address] [address] [address] David Magana D-DIMER COMMENTS SEE BELOW Normal [facility] Comment on above: Result Comment: Incr [...] hospitalization. Performed By: #### C BC #### [facility] [address] [place] [address] Dr. David Magana POINT OF CARE GLUCOSEon Glucose [Mass/Vol] 329 mg/dL Critically high 74-106 [facility] Comment on above: Performed By: #### P OCGLUC #### [facility] [address] [place] [address] Dr. David Magana Glucose [Mass/Vol] 354 mg/dL Critically high -106 [facility] Comment on above: Performed By: #### P OCGLUC #### [facility] [address] [place] [address] Dr. David Magana PROF 14(COMP METB)on 022 Albumin [Mass/Vol] 3.6 g/dL Normal 3.4-5.0 [facility] Comment on above: Performed By: #### C VDTBH #### [facility] [address] [place] [address] Dr. David Magana Albumin/Globulin [Mass ratio] 1.1 {ratio} Normal [facility] Comment on above: Performed By: #### C VDTBH #### [facility] [address] [place] [address] Dr. David Magana ALP [Catalytic activity/Vol] 67 U/L Normal 46-116 [facility] Comment on above: Performed By: #### C VDTBH #### [facility] [address] [place] [address] Dr. David Magana ALT [Catalytic activity/Vol] 33 U/L Normal 16-63 [facility] Comment on above: Performed By: #### C VDTBH #### [facility] [address] [place] [address] Dr. David Magana Anion gap [Moles/Vol] 23.5 mmol/L Normal [facility] Comment on above: Performed By: #### C VDTBH #### [facility] [address] [place] [address] Dr. David Magana AST [Catalytic activity/Vol] 13 U/L Critically low 15-37 [facility] Comment on above: Performed By: #### C VDTBH #### [facility] [address] [place] [address] Dr. David Magana Bilirubin [Mass/Vol] 0.6 mg/dL Normal 0.2-1.0 [facility] Comment on above: Performed By: #### C VDTBH #### [facility] [address] [place] [address] Dr. David Magana Calcium [Mass/Vol] 8.4 mg/dL Critically low 8.5-10.1 [facility] Comment on above: Performed By: #### C VDTBH #### [facility] [address] [place] [address] Dr. David Magana Chloride [Moles/Vol] 93 mmol/L Critically low 98-107 [facility] Comment on above: Performed By: #### C VDTBH #### [facility] [address] [place] [address] Dr. David Magana CO2 [Moles/Vol] 17.9 mmol/L Critically low 21.0-32.0 [facility] Comment on above: Performed By: #### C VDTBH #### [facility] [address] [place] [address] Dr. David Magana Creatinine [Mass/Vol] 2.15 mg/dL Critically high 0.70-1.30 [facility] Comment on above: Performed By: #### C VDTBH #### [facility] [address] [place] [address] Dr. David Magana EGFR-AF MONTSERRATIAN 36 mL/min/1.73m2 Critically low >=60 [facility] Comment on above: Performed By: #### C VDTBH #### [facility] [address] [place] [address] Dr. David Magana EGFR-NON AF MONTSERRATIAN 30 mL/min/1.73m2 Critically low >=60 [facility] Comment on above: Performed By: #### C VDTBH #### [facility] [address] [address] [address] David Magana Globulin (S) [Mass/Vol] 3.2 g/dL Normal [facility] Comment on above: Performed By: #### C VDTBH #### [facility] [address] [address] [address] David Magana Glucose [Mass/Vol] 345 mg/dL Critically high 74-106 [facility] Comment on above: Performed By: #### C VDTBH #### [facility] [address] [place] [address] Dr. David Magana Potassium [Moles/Vol] 5.4 mmol/L Critically high 3.5-5.1 [facility] Comment on above: Performed By: #### C VDTBH #### [facility] [address] [place] [address] Dr. Davdi Magana Performed By: #### K #### [facility] [address] [place] [address] Dr. David Magana Protein [Mass/Vol] 6.8 g/dL Normal 6.4-8.2 [facility] Comment on above: Performed By: #### C VDTBH #### [facility] [address] [place] [address] Dr. David Magana Sodium [Moles/Vol] 129 mmol/L Critically low 136-145 [facility] Comment on above: Performed By: #### C VDTBH #### [facility] [address] [place] [address] Dr. David Magana Urea nitrogen [Mass/Vol] 65.0 mg/dL Critically high 7.0-18.0 [facility] Comment on above: Performed By: #### C VDTBH #### [facility] [address] [place] [address] Dr. David Magana Urea nitrogen/Creatinine [Mass ratio] 30.2 mg/mg Normal [facility] Comment on above: Performed By: #### C VDTBH #### [facility] [address] [address] [address] David Magana UA RANDOM W/MICROSCOPICon BACTERIA NONE SEEN Normal NONE SEEN [facility] Comment on above: Performed By: #### M G, BMP, PHOS #### [facility] [address] [place] [address] Dr. David Magana Bilirubin Ql (U) Negative Normal NEGATIVE [facility] Comment on above: Performed By: #### M G, BMP, PHOS #### [facility] [address] [place] [address] Dr. David Magana CAST NONE SEEN Normal NONE SEEN [facility] Comment on above: Performed By: #### M G, BMP, PHOS #### [facility] [address] [place] [address] Dr. David Magana Clarity (U) CLEAR Normal CLEAR [facility] Comment on above: Performed By: #### M G, BMP, PHOS #### [facility] [address] [place] [address] Dr. David Magana Color (U) LT. YELLOW Normal YELLOW [facility] Comment on above: Performed By: #### M Marcell, BMP, PHOS #### [facility] [address] [place] [address] Dr. David Magana Crystals LM Nom (Urine sed) NONE SEEN Normal NONE SEEN [facility] Comment on above: Performed By: #### M G, BMP, PHOS #### [facility] [address] [place] [address] Dr. David Magana Epithelial cells LM Ql (Urine sed) RARE Normal NONE SEEN /RARE [facility] Comment on above: Performed By: #### M G, BMP, PHOS #### [facility] [address] [place] [address] Dr. David Magana Glucose Ql (U) 1000 mg/dl Abnormal NEGATIVE [facility] Comment on above: Performed By: #### M Marcell, BMP, PHOS #### [facility] [address] [address] [address] David Magana Hemoglobin Ql (U) Negative Normal NEGATIVE [facility] Comment on above: Performed By: #### M G, BMP, PHOS #### [facility] [address] [address] [address] David Magana Ketones Ql (U) 15 mg/dl Abnormal NEGATIVE [facility] Comment on above: Performed By: #### M G, BMP, PHOS #### [facility] [address] [address] [address] David Magana LEUKOCYTES Negative Normal NEGATIVE [facility] Comment on above: Performed By: #### M G, BMP, PHOS #### [facility] [address] [place] [address] Dr. David Magana MUCOUS NONE SEEN Normal NONE SEEN [facility] Comment on above: Performed By: #### M G, BMP, PHOS #### [facility] [address] [place] [address] Dr. David Magana Nitrite Ql (U) Negative Normal NEGATIVE [facility] Comment on above: Performed By: #### M G, BMP, PHOS #### [facility] [address] [place] [address] Dr. David Magana pH (U) 5.5 [pH] Normal 5-9 [facility] Comment on above: Performed By: #### M G, BMP, PHOS #### [facility] [address] [place] [address] Dr. David Magana RBC NONE SEEN Abnormal 0-[address] [facility] Comment on above: Performed By: #### M G, BMP, PHOS #### [facility] [address] [place] [address] Dr. David Magana SPEC GRAVITY <=1.005 Abnormal 1.005-<=1.02 5 [facility] Comment on above: Performed By: #### M G, BMP, PHOS #### [facility] [address] [place] [address] Dr. David Magana UA PROTEIN Negative Normal NEGATIVE/ TRACE [facility] Comment on above: Performed By: #### M G, BMP, PHOS #### [facility] [address] [address] [address] David Magana Urobilinogen Qn (U) 0.2 {Dionna'U}/dL Normal 0.2 - 1. 0 [facility] Comment on above: Performed By: #### M Marcell, BMP, PHOS #### [facility] [address] [address] [address] David Magana WBC NONE SEEN Normal NONE SEEN [facility] Comment on above: Performed By: #### M G, BMP, PHOS #### [facility] [address] [address] [address] David Magana XR CHEST 1 Von [...] Yefri DWYER Date: 2022-07-18 00:[address] [facility] CARDIAC BARRIE ADMITon 022 CK [Catalytic activity/Vol] 61 U/L Normal 39-[address] [facility] Comment on above: Performed By: #### C BC #### [facility] [address] [place] [address] Dr. David Magana CK.MB [Mass/Vol] 1.84 ng/mL Normal <=3.60 [facility] Comment on above: Performed By: #### C BC #### [facility] [address] [address] [address] David Magana HSTROP 9.4 pg/mL Normal 4.0-76.[address] [facility] Comment on above: Result Comment: CUT- OFF POINTS HAVE BEEN ESTABLISHED BASED ON THE FOURTH UNIVERSAL DEFINITIONS OF MYOCARDIAL INFARCTION. THE UPPER REFERENCE LIMIT (URL) OF TROPONIN, DEFINED THE 99TH PERCENTILE OF cTnI DISTRIBUTION IN A REFERENCE POPULATION, HAS BEEN CONFIRMED THE DECISION THRESHOLD FOR OR DIAGNOSIS. Performed By: #### C BC #### [facility] [address] [place] [address] Dr. David Magana DUSTIN 533 ng/mL Critically high 16-96 [facility] Comment on above: Performed By: #### C BC #### [facility] [address] [place] [address] Dr. David Magana CBC AUTO DIFFon 07-17-2022 BASO # 0.0 103/ul Normal 0.0-0.1 [facility] Comment on above: Performed By: #### M G, BMP, PHOS #### [facility] [address] [place] [address] Dr. David Magana Basophils/100 WBC (Bld) 0.2 % Normal 0.2-2.0 [facility] Comment on above: Performed By: #### M G, BMP, PHOS #### [facility] [address] [place] [address] Dr. David Magana EO # 0.0 103/ul Normal 0.0-0.7 [facility] Comment on above: Performed By: #### M G, BMP, PHOS #### [facility] [address] [place] [address] Dr. David Magana Eosinophils/100 WBC (Bld) 0.1 % Critically low 0.9-7.0 [facility] Comment on above: Performed By: #### M G, BMP, PHOS #### [facility] [address] [place] [address] Dr. David Magana Erythrocyte distribution width (RBC) [Ratio] 13.2 % Normal 11.0-15.0 [facility] Comment on above: Performed By: #### M G, BMP, PHOS #### [facility] [address] [place] [address] Dr. David Magana Hematocrit (Bld) [Volume fraction] 43.1 % Normal 42.0-54.0 [facility] Comment on above: Performed By: #### M G, BMP, PHOS #### [facility] [address] [place] [address] Dr. David Magana Hemoglobin (Bld) [Mass/Vol] 14.5 g/dL Normal 14.0-18.0 [facility] Comment on above: Performed By: #### M ERICK Faith, PHOS #### [facility] [address] [place] [address] Dr. David Magana IG # 0.14 10e3/ul Critically high 0.00-0.03 [facility] Comment on above: Performed By: #### M ERICK Faith, PHOS #### [facility] [address] [place] [address] Dr. David Magana IG % 1.2 % Critically high 0.0-0.5 [facility] Comment on above: Performed By: #### ERICK Jacques, PHOS #### [facility] [address] [place] [address] Dr. David Magana LYMPH # 0.4 103/ul Critically low 1.2-3.8 [facility] Comment on above: Performed By: #### ERICK Jacques, PHOS #### [facility] [address] [place] [address] Dr. David Magana Lymphocytes/100 WBC (Bld) 3.4 % Critically low 20.5-60.0 [facility] Comment on above: Performed By: #### ERICK Jacques, PHOS #### [facility] [address] [place] [address] Dr. David Magana MANUAL DIFF REQ NO Normal [facility] Comment on above: Performed By: #### ERICK Jacques, PHOS #### [facility] [address] [place] [address] Dr. David Magana MCH (RBC) [Entitic mass] 33.3 pg Normal 25.9-34.0 [facility] Comment on above: Performed By: #### ERICK Jacques, PHOS #### [facility] [address] [place] [address] Dr. David Magana MCHC (RBC) [Mass/Vol] 33.6 g/dL Normal 29.9-35.2 [facility] Comment on above: Performed By: #### M G, BMP, PHOS #### [facility] [address] [place] [address] Dr. David Magana MCV (RBC) [Entitic vol] 98.9 fL Critically high 80.0-94.0 [facility] Comment on above: Performed By: #### M G, BMP, PHOS #### [facility] [address] [place] [address] Dr. David Magana MONO # 1.1 103/ul Critically high 0.3-0.8 [facility] Comment on above: Performed By: #### M G, BMP, PHOS #### [facility] [address] [place] [address] Dr. David Magana Monocytes/100 WBC (Bld) 8.9 % Normal 1.7-12.0 [facility] Comment on above: Performed By: #### M Marcell BMP, PHOS #### [facility] [address] [place] [address] Dr. David Magana NEUT # 10.3 103/ul Critically high 1.4-6.5 [facility] Comment on above: Performed By: #### M Marcell BMP, PHOS #### [facility] [address] [place] [address] Dr. David Magana Neutrophils/100 WBC (Bld) 86.2 % Critically high 43.0-75.0 [facility] Comment on above: Performed By: #### M Marcell BMP, PHOS #### [facility] [address] [place] [address] Dr. David Magana Platelet mean volume (Bld) [Entitic vol] 11.1 fL Normal 9.5-13.[address] [facility] Comment on above: Performed By: #### M Marcell BMP, PHOS #### [facility] [address] [place] [address] Dr. David Magana PLT 229 103/ul Normal 150-[address] [facility] Comment on above: Performed By: #### M Marcell, BMP, PHOS #### [facility] [address] [place] [address] Dr. David Magana RBC 4.36 106/ul Critically low 4.70-6.10 [facility] Comment on above: Performed By: #### M ERICK Faith, PHOS #### [facility] [address] [address] [address] David Magana WBC 11.9 103/ul Critically high 4.0-11.0 [facility] Comment on above: Performed By: #### M ERICK Faith, PHOS #### [facility] [address] [place] [address] Dr. David Magana PROF CHEM 8 (BAS METB)on Anion gap [Moles/Vol] 26.5 mmol/L Normal [facility] Comment on above: Performed By: #### C BC #### [facility] [address] [place] [address] Dr. David Magana Calcium [Mass/Vol] 8.2 mg/dL Critically low 8.5-10.1 [facility] Comment on above: Performed By: #### C BC #### [facility] [address] [place] [address] Dr. David Magana Chloride [Moles/Vol] 89 mmol/L Critically low 98-107 [facility] Comment on above: Performed By: #### C BC #### [facility] [address] [place] [address] Dr. David Magana CO2 [Moles/Vol] 14.5 mmol/L Critically low 21.0-32.0 [facility] Comment on above: Performed By: #### C BC #### [facility] [address] [place] [address] Dr. David Magana Creatinine [Mass/Vol] 2.78 mg/dL Critically high 0.70-1.30 [facility] Comment on above: Performed By: #### C BC #### [facility] [address] [place] [address] Dr. David Magana EGFR-AF MONTSERRATIAN 27 mL/min/1.73m2 Critically low >=60 [facility] Comment on above: Performed By: #### C BC #### [facility] [address] [address] [address] David Magana EGFR-NON AF MONTSERRATIAN 22 mL/min/1.73m2 Critically low >=60 [facility] Comment on above: Performed By: #### C BC #### [facility] [address] [address] [address] David Magana Glucose [Mass/Vol] 442 mg/dL Critically high 74-106 [facility] Comment on above: Performed By: #### C BC #### [facility] [address] [address] [address] David Magana Potassium [Moles/Vol] 6.0 mmol/L Critically high 3.5-5.1 [facility] Comment on above: Performed By: #### C BC #### [facility] [address] [address] [address] David Magana Sodium [Moles/Vol] 124 mmol/L Critically low 136-145 [facility] Comment on above: Performed By: #### C BC #### [facility] [address] [address] [address] David Magana Urea nitrogen [Mass/Vol] 73.0 mg/dL Critically high 7.0-18.0 [facility] Comment on above: Performed By: #### C BC #### [facility] [address] [address] [address] David Magana Urea nitrogen/Creatinine [Mass ratio] 26.3 mg/mg Normal [facility] Comment on above: Performed By: #### C BC #### [facility] [address] [address] [address] David Mag[facility]16 SARS-CoV-2 (COVID-19) RNA SULTANA+probe Ql (Unsp spec) Detected Critically abnormal NOT DETECTED [facility] Comment on above: Result Comment: This test is not yet approved or cleared by the [place] FDA. When there are no FDA-approved or cleared tests available, and other criteria are met, FDA can make tests available under an emergency access mechanism called an Emergency Use Authorization (EUA). The EUA for this test is supported by the [place] of Health and Human Service's (HHS's) declaration [...] used). Performed By: #### M Marcell, ERICK, PHOS #### [facility] [address] [address] [address] David Magana ECHOCARDIO M/2D COMPLETEon 0 07-01-2022 ECHOCARDIO M/2D COMPLETE Patient: NADIR BETH Exam Date: 07/01/2022 : 1940 Gender:M Ordering : DR CLARIBEL CISNEROS M.D. Admission #: [id number] Family : DR PJ YOUSSEF . Order #: [id number] CLICK HERE TO VIEW EXAM ECHOCARDIOGRAM REPORT [...] M.D. on 07/01/2022 at 16:[address] [facility] Covid-19 PCR ([facility])on SARS-CoV-2 (COVID-19) RNA SULTANA+probe Ql (Unsp spec) Not detected Normal NOT DETECTED [facility] Comment on above: Result Comment: When [...] for this test is supported by the [employer] of Health and Human Service's declaration that [...] used). Performed By: #### C VDTB #### [facility] [address] [place] [address] Dr. David Magana CREATININE URINEon 2 URINE CREAT 14.70 mg/dL Critically low 20.00-300.00 [facility] Comment on above: Performed By: #### M Marcell, ERICK, PHOS #### [facility] [address] [place] [address] Dr. David Magana GLYCOHEMOGLOBIN A1Con 2021 ADA RECOMMENDATION SEE BELOW Normal [facility] Comment on above: Result Comment: ADA RECOMMENDED LIMIT 4.0 - 6.0 ADA THERAPEUTIC TARGET < 7.0 ACTION SUGGESTED > 7.0 Performed By: #### A 1C #### [facility] [address] [place] [address] Dr. David Magana Glucose [Mass/Vol] 209 mg/dL Normal [facility] Comment on above: Performed By: #### A 1C #### [facility] [address] [place] [address] Dr. David Magana HbA1c (Bld) [Mass fraction] 8.9 % Critically high 4.5-6.2 [facility] Comment on above: Performed By: #### A 1C #### [facility] [address] [place] [address] Dr. David Magana MAGNESIUMon 06-08-2022 Magnesium [Mass/Vol] 2.3 mg/dL Normal 1.8-2.4 [facility] Comment on above: Performed By: #### M G, BMP, PHOS #### [facility] [address] [place] [address] Dr. David Magana PHOSPHORUSon 06-08-2022 Phosphate [Mass/Vol] 3.5 mg/dL Normal 2.6-4.7 [facility] Comment on above: Performed By: #### M Marcell, BMP, PHOS #### [facility] [address] [place] [address] Dr. David Magana PROF CHEM 8 (BAS METB)on Anion gap [Moles/Vol] 10.6 mmol/L Normal [facility] Comment on above: Performed By: #### M G, BMP, PHOS #### [facility] [address] [place] [address] Dr. David Magana Calcium [Mass/Vol] 9.2 mg/dL Normal 8.5-10.1 [facility] Comment on above: Performed By: #### M G, BMP, PHOS #### [facility] [address] [place] [address] Dr. David Magana Chloride [Moles/Vol] 102 mmol/L Normal 98-107 [facility] Comment on above: Performed By: #### M G, BMP, PHOS #### [facility] [address] [place] [address] Dr. David Magana CO2 [Moles/Vol] 30.1 mmol/L Normal 21.0-32.0 [facility] Comment on above: Performed By: #### M G, BMP, PHOS #### [facility] [address] [address] [address] David Magana Creatinine [Mass/Vol] 1.70 mg/dL Critically high 0.70-1.30 [facility] Comment on above: Performed By: #### M G, BMP, PHOS #### [facility] [address] [address] [address] David Magana EGFR-AF MONTSERRATIAN 47 mL/min/1.73m2 Critically low >=60 [facility] Comment on above: Performed By: #### M G, BMP, PHOS #### [facility] [address] [address] [address] David Magana EGFR-NON AF MONTSERRATIAN 39 mL/min/1.73m2 Critically low >=60 [facility] Comment on above: Performed By: #### M G, BMP, PHOS #### [facility] [address] [address] [address] David Magana Glucose [Mass/Vol] 197 mg/dL Critically high 74-106 [facility] Comment on above: Performed By: #### M G, BMP, PHOS #### [facility] [address] [address] [address] David Magana Potassium [Moles/Vol] 4.7 mmol/L Normal 3.5-5.1 [facility] Comment on above: Performed By: #### M G, BMP, PHOS #### [facility] [address] [address] [address] David Magana Sodium [Moles/Vol] 138 mmol/L Normal 136-145 [facility] Comment on above: Performed By: #### M G, BMP, PHOS #### [facility] [address] [address] [address] David Magana Urea nitrogen [Mass/Vol] 25.0 mg/dL Critically high 7.0-18.0 [facility] Comment on above: Performed By: #### M G, BMP, PHOS #### [facility] [address] [address] [address] David Magana Urea nitrogen/Creatinine [Mass ratio] 14.7 mg/mg Normal [facility] Comment on above: Performed By: #### M G, BMP, PHOS #### [facility] [address] [place] [address] Dr. David Magana PROTEIN RAND URINEon 022 UR PROT <5.0 Normal <=11.9 [facility] Comment on above: Performed By: #### C REAU, PROTU #### [facility] [address] [place] [address] Dr. David Magana BILIRUBIN CONJUGATED (DIRECT )on 04-28-2022 BILI, CONJUGATED 0.1 mg/dL Normal 0.0-0.2 [facility] Comment on above: Performed By: #### P OCGLUC #### [facility] [address] [place] [address] Dr. David Magana CBC AUTO DIFFon 04-28-2022 BASO # 0.1 103/ul Normal 0.0-0.1 [facility] Comment on above: Performed By: #### C VDTBH #### [facility] [address] [place] [address] Dr. David Magana Basophils/100 WBC (Bld) 0.7 % Normal 0.2-2.0 [facility] Comment on above: Performed By: #### C VDTBH #### [facility] [address] [place] [address] Dr. David Magana EO # 0.5 103/ul Normal 0.0-0.[address] [facility] Comment on above: Performed By: #### C VDTBH #### [facility] [address] [place] [address] Dr. David Magana Eosinophils/100 WBC (Bld) 6.7 % Normal 0.9-7.[address] [facility] Comment on above: Performed By: #### C VDTBH #### [facility] [address] [place] [address] Dr. David Magana Erythrocyte distribution width (RBC) [Ratio] 13.6 % Normal 11.0-15.0 [facility] Comment on above: Performed By: #### C VDTBH #### [facility] [address] [place] [address] Dr. David Magana Hematocrit (Bld) [Volume fraction] 45.9 % Normal 42.0-54.0 [facility] Comment on above: Performed By: #### C VDTBH #### [facility] [address] [place] [address] Dr. David Magana Hemoglobin (Bld) [Mass/Vol] 14.9 g/dL Normal 14.0-18.0 [facility] Comment on above: Performed By: #### C VDTBH #### [facility] [address] [place] [address] Dr. David Magana IG # 0.03 10e3/ul Normal 0.00-0.03 [facility] Comment on above: Performed By: #### C VDTBH #### [facility] [address] [place] [address] Dr. David Magana IG % 0.4 % Normal 0.0-0.5 [facility] Comment on above: Performed By: #### C VDTBH #### [facility] [address] [place] [address] Dr. David Magana LYMPH # 1.0 103/ul Critically low 1.2-3.[address] [facility] Comment on above: Performed By: #### C VDTBH #### [facility] [address] [place] [address] Dr. David Magana Lymphocytes/100 WBC (Bld) 13.4 % Critically low 20.5-60.0 [facility] Comment on above: Performed By: #### C VDTBH #### [facility] [address] [place] [address] Dr. David Magana MANUAL DIFF REQ NO Normal [facility] Comment on above: Performed By: #### C VDTBH #### [facility] [address] [place] [address] Dr. David Magana MCH (RBC) [Entitic mass] 33.8 pg Normal 25.9-34.0 [facility] Comment on above: Performed By: #### C VDTBH #### [facility] [address] [address] [address] David Magana MCHC (RBC) [Mass/Vol] 32.5 g/dL Normal 29.9-35.2 [facility] Comment on above: Performed By: #### C VDTBH #### [facility] [address] [place] [address] Dr. David Magana MCV (RBC) [Entitic vol] 104.1 fL Critically high 80.0-94.0 [facility] Comment on above: Performed By: #### C VDTBH #### [facility] [address] [place] [address] Dr. David Magana MONO # 0.8 103/ul Normal 0.3-0.8 [facility] Comment on above: Performed By: #### C VDTBH #### [facility] [address] [place] [address] Dr. David Magana Monocytes/100 WBC (Bld) 10.2 % Normal 1.7-12.0 [facility] Comment on above: Performed By: #### C VDTBH #### [facility] [address] [place] [address] Dr. David Magana NEUT # 5.1 103/ul Normal 1.4-6.5 [facility] Comment on above: Performed By: #### C VDTBH #### [facility] [address] [place] [address] Dr. David Magana Neutrophils/100 WBC (Bld) 68.6 % Normal 43.0-75.[address] [facility] Comment on above: Performed By: #### C VDTBH #### [facility] [address] [place] [address] Dr. David Magana Platelet mean volume (Bld) [Entitic vol] 11.3 fL Normal 9.5-13.5 [facility] Comment on above: Performed By: #### C VDTBH #### [facility] [address] [place] [address] Dr. David Magana PLT 185 103/ul Normal 150-[address] [facility] Comment on above: Performed By: #### C VDTBH #### [facility] [address] [address] [address] David Magana RBC 4.41 106/ul Critically low 4.70-6.10 [facility] Comment on above: Performed By: #### C VDTBH #### [facility] [address] [address] [address] David Magana WBC 7.5 103/ul Normal 4.0-11.0 [facility] Comment on above: Performed By: #### C VDTBH #### [facility] [address] [address] [address] David Magana FREE T3on 04-28-2022 FREE T3 2.17 pg/mlL Critically low 2.18-3.98 [facility] Comment on above: Performed By: #### P OCGLUC #### [facility] [address] [place] [address] Dr. David Magana LIPID PROFILEon 04-28-2022 CHOL-HDL RATIO NORM SEE BELOW Normal [facility] Comment on above: Result Comment: 3.3 - 4.4 LOW RISK 4.4 - 7.1 AVERAGE RISK 7.1 - 11.0 MODERATE RISK >11.0 HIGH RISK Performed By: #### P OCGLUC #### [facility] [address] [place] [address] Dr. David Magana Cholesterol [Mass/Vol] 234 mg/dL Critically high <=200 [facility] Comment on above: Performed By: #### P OCGLUC #### [facility] [address] [place] [address] Dr. David Magana Cholesterol in HDL [Mass/Vol] 58 mg/dL Normal 40-60 [facility] Comment on above: Performed By: #### P OCGLUC #### [facility] [address] [place] [address] Dr. David Magana Cholesterol in LDL [Mass/Vol] 129.0 mg/dL Normal [facility] Comment on above: Performed By: #### P OCGLUC #### [facility] [address] [place] [address] Dr. David Magana Cholesterol.total/Cho lesterol in HDL [Mass ratio] 4.0 {ratio} Normal [facility] Comment on above: Performed By: #### P OCGLUC #### [facility] [address] [address] [address] David Magana HDL NORMAL > or = 60 mg/dl - LO W CARDIOVASCULAR RISK <40 mg/dl - HIGH CARDIOVASCULAR RISK Normal [facility] Comment on above: Performed By: #### P OCGLUC #### [facility] [address] [address] [address] David Magana LDL CALC NORMAL SEE BELOW Normal [facility] Comment on above: Result Comment: <100 mg/dl OPTIMAL 100 - 129 mg/dl NEAR OR ABOVE OPTIMAL 130 - 159 mg/dl BORDERLINE HIGH 160 - 189 mg/dl HIGH >190 mg/dl VERY HIGH Performed By: #### P OCGLUC #### [facility] [address] [address] [address] David Magana Triglyceride [Mass/Vol] 235 mg/dL Critically high <=150 [facility] Comment on above: Performed By: #### P OCGLUC #### [facility] [address] [address] [address] David Magana VLDL CALC 47.0 mg/dL Normal [facility] Comment on above: Performed By: #### P OCGLUC #### [facility] [address] [address] [address] David Magana PROF 14(COMP METB)on 022 Albumin [Mass/Vol] 3.2 g/dL Critically low 3.4-5.[address] [facility] Comment on above: Performed By: #### P OCGLUC #### [facility] [address] [address] [address] David Magana Albumin/Globulin [Mass ratio] 0.9 {ratio} Normal [facility] Comment on above: Performed By: #### P OCGLUC #### [facility] [address] [address] [address] David Magana ALP [Catalytic activity/Vol] 77 U/L Normal 46-116 [facility] Comment on above: Performed By: #### P OCGLUC #### [facility] [address] [address] [address] David Magana ALT [Catalytic activity/Vol] 24 U/L Normal 16-63 [facility] Comment on above: Performed By: #### P OCGLUC #### [facility] [address] [address] [address] David Magana Anion gap [Moles/Vol] 13.1 mmol/L Normal [facility] Comment on above: Performed By: #### P OCGLUC #### [facility] [address] [address] [address] David Magana AST [Catalytic activity/Vol] 13 U/L Critically low 15-37 [facility] Comment on above: Performed By: #### P OCGLUC #### [facility] [address] [address] [address] David Magana Bilirubin [Mass/Vol] 0.3 mg/dL Normal 0.2-1.0 [facility] Comment on above: Performed By: #### P OCGLUC #### [facility] [address] [address] [address] David Magana Calcium [Mass/Vol] 8.8 mg/dL Normal 8.5-10.1 [facility] Comment on above: Performed By: #### P OCGLUC #### [facility] [address] [address] [address] David Magana Chloride [Moles/Vol] 106 mmol/L Normal 98-107 [facility] Comment on above: Performed By: #### P OCGLUC #### [facility] [address] [address] [address] David Magana CO2 [Moles/Vol] 27.5 mmol/L Normal 21.0-32.0 [facility] Comment on above: Performed By: #### P OCGLUC #### [facility] [address] [address] [address] David Magana Creatinine [Mass/Vol] 1.62 mg/dL Critically high 0.70-1.30 [facility] Comment on above: Performed By: #### P OCGLUC #### [facility] [address] [address] [address] David Magana EGFR-AF MONTSERRATIAN 50 mL/min/1.73m2 Critically low >=60 [facility] Comment on above: Performed By: #### P OCGLUC #### [facility] [address] [address] [address] David Magana EGFR-NON AF MONTSERRATIAN 41 mL/min/1.73m2 Critically low >=60 [facility] Comment on above: Performed By: #### P OCGLUC #### [facility] [address] [address] [address] David Magana Globulin (S) [Mass/Vol] 3.4 g/dL Normal [facility] Comment on above: Performed By: #### P OCGLUC #### [facility] [address] [address] [address] David Magana Glucose [Mass/Vol] 206 mg/dL Critically high 74-106 [facility] Comment on above: Performed By: #### P OCGLUC #### [facility] [address] [address] [address] David Magana Potassium [Moles/Vol] 4.6 mmol/L Normal 3.5-5.1 [facility] Comment on above: Performed By: #### P OCGLUC #### [facility] [address] [address] [address] David Magana Protein [Mass/Vol] 6.6 g/dL Normal 6.4-8.2 [facility] Comment on above: Performed By: #### P OCGLUC #### [facility] [address] [address] [address] David Magana Sodium [Moles/Vol] 142 mmol/L Normal 136-145 [facility] Comment on above: Performed By: #### P OCGLUC #### [facility] [address] [address] [address] David Magana Urea nitrogen [Mass/Vol] 26.0 mg/dL Critically high 7.0-18.0 [facility] Comment on above: Performed By: #### P OCGLUC #### [facility] [address] [address] [address] David Magana Urea nitrogen/Creatinine [Mass ratio] 16.0 mg/mg Normal [facility] Comment on above: Performed By: #### P OCGLUC #### [facility] [address] [place] [address] Dr. David Magana T4on 04-28-2022 T4 [Mass/Vol] 7.70 ug/dL Normal 4.50-12.10 [facility] Comment on above: Performed By: #### P OCGLUC #### [facility] [address] [address] [address] David Magana TSHon 04-28-2022 TSH 2.187 uIU/mL Normal 0.358-3.740 [facility] Comment on above: Performed By: #### P OCGLUC #### [facility] [address] [place] [address] Dr. David Magana TSH RANGE SEE BELOW Normal [facility] Comment on above: Result Comment: <0.3 4 UIU/ml HYPERTHYROID 0.34-5.60 UIU/ml EUTHYROID >5.60 UIU/ml HYPOTHYROID Performed By: #### P OCGLUC #### [facility] [address] [place] [address] Dr. David Magana Vital Signs Date Time Vital Sign Value Performing Clinician Facility 12-04-2024 08:44-0500 Diastolic blood pressure 90 mm[Hg] MARQUIS LOUISE [facility] 12-04-2024 08:44-0500 Heart rate 78 /min MARQUIS LOUISE [facility] 12-04-2024 08:44-0500 Systolic blood pressure 160 mm[Hg] MARQUIS LOUISE [facility] 11-30-2024 08:28-0500 Body height 182.9 cm Blaise Chicas DPM Work Phone: [facility] 11-30-2024 08:28-0500 Body mass index (BMI) [Ratio] 39.2 kg/m2 Blaise Chicas DPM Work Phone: [facility] 11-30-2024 08:28-0500 Body weight 131.09 kg Blaise Chicas DPM Work Phone: [facility] 11-30-2024 08:28-0500 Respiratory rate 16 /min Blaise Chicas DPM Work Phone: [facility] 11-02-2024 08:09-0500 Blood Pressure Location MARQUIS NKANSAH-AMANKRA [facility] 11-02-2024 08:09-0500 Diastolic blood pressure 67 mm[Hg] MARQUIS NKANSAH-AMANKRA [facility] 11-02-2024 08:09-0500 Heart rate 65 /min MARQUIS NKANSAH-AMANKRA [facility] 11-02-2024 08:09-0500 Systolic blood pressure 102 mm[Hg] MARQUIS NKANSAH-AMANKRA [facility] 09-14-2024 08:19-0400 Body height 182.9 cm Blaise Brown DPM Work Phone: [facility] 09-14-2024 08:19-0400 Body mass index (BMI) [Ratio] 39.2 kg/m2 Blaise Chicas DPM Work Phone: [facility] 09-14-2024 08:19-0400 Body weight 131.09 kg Blaise Chicas DPM Work Phone: [facility] 09-14-2024 08:19-0400 Diastolic blood pressure 79 mm[Hg] Blaise Chicas DPM Work Phone: [facility] 09-14-2024 08:19-0400 Heart rate 81 /min Blaise Chicas DPM Work Phone: [facility] 09-14-2024 08:19-0400 Systolic blood pressure 128 mm[Hg] Blaise Chicas DPM Work Phone: [facility] 08-08-2024 10:25-0400 Blood Pressure Location MARQUIS NKANSAH-AMANKRA [facility] 08-08-2024 10:25-0400 Diastolic blood pressure 82 mm[Hg] MARQUIS NKANSAH-AMANKRA [facility] 08-08-2024 10:25-0400 Systolic blood pressure 140 mm[Hg] MARQUIS NKANSAH-AMANKRA [facility] 08-03-2024 08:45-0400 Body height 182.9 cm Blaise Chicas DPM Work Phone: [facility] 08-03-2024 08:45-0400 Body mass index (BMI) [Ratio] 39.2 kg/m2 Blaise Chicas DPM Work Phone: [facility] 08-03-2024 08:45-0400 Body weight 131.09 kg Blaise Chicas DPM Work Phone: [facility] 08-03-2024 08:45-0400 Diastolic blood pressure 82 mm[Hg] Blaise Chicas DPM Work Phone: [facility] 08-03-2024 08:45-0400 Heart rate 75 /min Blaise Chicas DPM Work Phone: [facility] 08-03-2024 08:45-0400 Respiratory rate 18 /min Blaise Chicas DPM Work Phone: [facility] 08-03-2024 08:45-0400 Systolic blood pressure 130 mm[Hg] Blaise Chicas DPM Work Phone: [facility] 08-01-2024 11:24-0400 Body height 182.9 cm Barrie Montoya MD Work Phone: [facility] 08-01-2024 11:24-0400 Body mass index (BMI) [Ratio] 39.2 kg/m2 Barrie Montoya MD Work Phone: [facility] 08-01-2024 11:24-0400 Body weight 131.09 kg Barrie Montoya MD Work Phone: [facility] 08-01-2024 11:24-0400 Diastolic blood pressure 93 mm[Hg] Barrie Montoya MD Work Phone: [facility] 08-01-2024 11:24-0400 Heart rate 73 /min Barrie Montoya MD Work Phone: [facility] 08-01-2024 11:24-0400 Systolic blood pressure 182 mm[Hg] Barrie Montoya MD Work Phone: [facility] 07-20-2024 08:27-0400 Body height 182.9 cm Blaise Chicas DPM Work Phone: [facility] 07-20-2024 08:27-0400 Body mass index (BMI) [Ratio] 26.04 kg/m2 Blaise Chicas DPM Work Phone: [facility] 07-20-2024 08:27-0400 Body weight 87.09 kg Blaise Chicas DPM Work Phone: [facility] 07-20-2024 08:27-0400 Diastolic blood pressure 81 mm[Hg] lBaise Chicas DPM Work Phone: [facility] 07-20-2024 08:27-0400 Heart rate 75 /min Blaise Chicas DPM Work Phone: [facility] 07-20-2024 08:27-0400 Respiratory rate 18 /min Blaise Chicas DPM Work Phone: [facility] 07-20-2024 08:27-0400 Systolic blood pressure 130 mm[Hg] Blaise Aviva DPM Work Phone: [facility] 07-06-2024 08:27-0400 Body height 182.9 cm Blaise Aviva DPM Work Phone: [facility] 07-06-2024 08:27-0400 Body mass index (BMI) [Ratio] 26.04 kg/m2 Blaise Chicas DPM Work Phone: [facility] 07-06-2024 08:27-0400 Body weight 87.09 kg Blaise Chicas DPM Work Phone: [facility] 07-06-2024 08:27-0400 Diastolic blood pressure 81 mm[Hg] Blaise Aviva DPM Work Phone: [facility] 07-06-2024 08:27-0400 Heart rate 77 /min Blaise Chicas DPM Work Phone: [facility] 07-06-2024 08:27-0400 Systolic blood pressure 128 mm[Hg] Blaise Chicas DPM Work Phone: [facility] 10-14-2023 14:33-0500 Diastolic blood pressure 70 mm[Hg] Nereyda Patricia [facility] 10-14-2023 14:33-0500 Mean blood pressure 93 mm[Hg] Nereyda Patricia [facility] 10-14-2023 14:33-0500 Systolic blood pressure 138 mm[Hg] Nereyda Patricia [facility] 10-14-2023 14:18-0500 Blood Pressure Location Nereyda Particia [facility] 10-14-2023 14:18-0500 Body temperature 97.88 [degF] Nereyda Patricia [facility] 10-14-2023 14:18-0500 Diastolic blood pressure 73 mm[Hg] Nereyda Patricia [facility] 10-14-2023 14:18-0500 Heart rate 91 /min Nereyda Patricia [facility] 10-14-2023 14:18-0500 Systolic blood pressure 143 mm[Hg] Nereyda Patricia [facility] 10-01-2023 12:13-0500 Diastolic blood pressure 66 mm[Hg] Nereyda Patricia [facility] 10-01-2023 12:13-0500 Mean blood pressure 104 mm[Hg] Nereyda Patricia [facility] 10-01-2023 12:13-0500 Systolic blood pressure 179 mm[Hg] Nereyda Patricia [facility] 10-01-2023 12:10-0500 Blood Pressure Location Nereyda Patricia [facility] 10-01-2023 12:10-0500 Body temperature 98.42 [degF] Nereyda Patricia [facility] 10-01-2023 12:10-0500 Diastolic blood pressure 77 mm[Hg] Nereyda Patricia [facility] 10-01-2023 12:10-0500 Heart rate 81 /min Nereyda Patricia [facility] 10-01-2023 12:10-0500 Respiratory rate 14 /min Nereyda Patricia [facility] 10-01-2023 12:10-0500 Systolic blood pressure 168 mm[Hg] Nereyda Patricia [facility] 06-10-2023 10:43-0400 Diastolic blood pressure 64 mm[Hg] Nereyda Patricia [facility] 06-10-2023 10:43-0400 Heart rate 76 /min Nereyda Patricia [facility] 06-10-2023 10:43-0400 Respiratory rate 16 /min Nereyda Patricia [facility] 06-10-2023 10:43-0400 SaO2% (BldA) [Mass fraction] 95 % Nereyda Patricia [facility] 06-10-2023 10:43-0400 Systolic blood pressure 121 mm[Hg] Nereyda Patricia [facility] 04-13-2023 14:19-0400 Diastolic blood pressure 70 mm[Hg] Nereyda Patricia [facility] 04-13-2023 14:19-0400 Mean blood pressure 95 mm[Hg] Nereyda Patricia [facility] 04-13-2023 14:19-0400 Systolic blood pressure 146 mm[Hg] Nereyda Patricia [facility] 04-13-2023 14:15-0400 Blood Pressure Location Nereyda Patricia [facility] 04-13-2023 14:15-0400 Body temperature 97.7 [degF] Nereyda Patricia [facility] 04-13-2023 14:15-0400 Diastolic blood pressure 87 mm[Hg] Nereyda Joyametz [facility] 04-13-2023 14:15-0400 Heart rate 70 /min Nereydabruce JoyaPatricia [facility] 04-13-2023 14:15-0400 Systolic blood pressure 150 mm[Hg] Nereyda Joyametz [facility] 06-09-2022 10:02-0400 Body temperature 96.98 [degF] Nreeyda Joyametz [facility] 06-09-2022 10:02-0400 Diastolic blood pressure 75 mm[Hg] Nereyda Joyametz [facility] 06-09-2022 10:02-0400 Heart rate 72 /min Nereydabruce JoyaPatricia [facility] 06-09-2022 10:02-0400 SaO2% (BldA) [Mass fraction] 97 % Nereyda Joyametz [facility] 06-09-2022 10:02-0400 Systolic blood pressure 139 mm[Hg] Nereydabruce JoyaPatricia [facility] 05-11-2022 11:30-0400 Diastolic blood pressure 102 mm[Hg] Bender SALAM [facility] 05-11-2022 11:30-0400 Heart rate 86 /min Bender SALAM [facility] 05-11-2022 11:30-0400 Respiratory rate 15 /min Bender SALAM [facility] 05-11-2022 11:30-0400 SaO2% (BldA) [Mass fraction] 95 % Bender SALAM [facility] 05-11-2022 11:30-0400 Systolic blood pressure 172 mm[Hg] Bender SALAM [facility] 05-11-2022 11:15-0400 Diastolic blood pressure 88 mm[Hg] Bender SALAM [facility] 05-11-2022 11:15-0400 Heart rate 86 /min Bender SALAM [facility] 05-11-2022 11:15-0400 Respiratory rate 18 /min Bender SALAM [facility] 05-11-2022 11:15-0400 SaO2% (BldA) [Mass fraction] 97 % Ebnder SALAM [facility] 05-11-2022 11:15-0400 Systolic blood pressure 170 mm[Hg] Bender SALAM [facility] 05-11-2022 11:10-0400 Diastolic blood pressure 108 mm[Hg] Bender SALAM [facility] 05-11-2022 11:10-0400 Heart rate 85 /min Bender SALAM [facility] 05-11-2022 11:10-0400 Respiratory rate 14 /min Bender SALAM [facility] 05-11-2022 11:10-0400 SaO2% (BldA) [Mass fraction] 97 % Bender SALAM [facility] 05-11-2022 11:10-0400 Systolic blood pressure 157 mm[Hg] Bender SALAM [facility] 05-11-2022 11:02-0400 Body temperature 97.34 [degF] Bender SALAM [facility] 05-11-2022 10:27-0400 Blood Pressure Location Bender SALAM [facility] 05-11-2022 10:23-0400 Blood Pressure Location Bender SALAM [facility] 05-11-2022 10:23-0400 Body temperature 98.24 [degF] Bender SALAM [facility] 03-31-2022 09:53-0400 Blood Pressure Location Nereyda Joyametz [facility] 03-31-2022 09:53-0400 Body temperature 97.7 [degF] Nereyda Gomez [facility] 03-31-2022 09:53-0400 Diastolic blood pressure 72 mm[Hg] Nereyda Joyametz [facility] 03-31-2022 09:53-0400 Heart rate 73 /min Nereyda Gomez [facility] 03-31-2022 09:53-0400 SaO2% (BldA) [Mass fraction] 96 % Nereydabruce JoyaPatricia [facility] 03-31-2022 09:53-0400 Systolic blood pressure 129 mm[Hg] Nereydabruce JoyaPatricia [facility] Encounters Encounter Date Encounter Type Care Provider Facility Start: 06-11-2025 ambulatory LU Sweet SHARA Rick ty:[facility] Start: 01-03-2025 End: 01-03-2025 ambulatory RUTHIE BAY MILLS [facility] Start: 12-14-2024 End: 12-14-2024 ambulatory CLARIBEL CISNEROS [facility] Start: 12-04-2024 End: 12-04-2024 ambulatory MARQUIS ROANEELAEMMYMadeleineDAYSI Facility:[facility] Start: 12-04-2024 End: 12-04-2024 Patient encounter procedure MARQUIS NEELY-DAYSI [facility] Start: 11-30-2024 End: 11-30-2024 Bamboo flowsheet Blaise Chicas DPM Work Phone: [facility] Start: 11-30-2024 End: 11-30-2024 Bamboo flowsheet Blaise Chicas DPM Work Phone: [facility] Start: 11-30-2024 End: 11-30-2024 Patient encounter procedure Blaise Chicas DPM Work Phone: [facility] Comment on above: Verruca plantaris (P rimary Dx); Foot pain, right; Diabetes mellitus due to underlying condition with diabetic polyneuropathy, unspecified whether residential insulin use ([facility]); Pain due to onychomycosis of toenails of both feet Start: 11-30-2024 End: 11-30-2024 ambulatory BLAISE CHICAS Not Available Start: 11-06-2024 End: 11-06-2024 ambulatory Mejia SINGH Facility:[facility] Start: 11-06-2024 End: 11-06-2024 Patient encounter procedure Mejia SINGH [facility] Start: 11-02-2024 End: 11-02-2024 ambulatory MARQUIS NKANSAH-AMANKRA Facility:[facility] [place] Start: 11-02-2024 End: 11-02-2024 Patient encounter procedure MARQUIS NKANSAH-AMANKRA [facility] Start: 10-30-2024 End: 10-30-2024 ambulatory Mejia SINGH Facility::[id number] Start: 10-25-2024 End: 10-25-2024 ambulatory MARQUIS NKANSAH-AMANKRA Facility:[facility] Start: 10-23-2024 End: 10-23-2024 ambulatory MARQUIS NKANSAH-AMANKRA [facility] Start: 10-23-2024 End: 10-23-2024 Patient encounter procedure MARQUIS JANINAANSAH-AMANKRA [facility] Start: 10-02-2024 End: 10-02-2024 ambulatory MARQUIS NKANSAH-AMANKRA Facility:[facility] [place] Start: 09-25-2024 End: 09-25-2024 ambulatory MARQUIS NKANSAH-AMANKRA [facility] Start: 09-25-2024 End: 09-25-2024 Patient encounter procedure MARQUIS JANINAANSAH-AMANKRA [facility] Start: 09-14-2024 End: 09-14-2024 Bamboo flowsheet Blaise [...] underlying condition with diabetic polyneuropathy, 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 ([facility]); Pain due to onychomycosis of toenails of both feet Start: 09-14-2024 End: 09-14-2024 ambulatory BLAISE CHICAS Not Available Start: 08-24-2024 End: 08-24-2024 Bamboo flowspatrick Joy [...] RODNEY JOY Not Available Start: 08-22-2024 ambulatory [facility] Facility:[facility] Start: 08-17-2024 [facility]ulatory [facility] Start: 08-14-2024 End: 08-17-2024 Telephone encounter Barrie Montoya MD Work Phone: [facility] 111 Start: 08-08-2024 End: 08-08-2024 ambulatory [facility] Facility:[facility] Start: 08-08-2024 End: 08-08-2024 [facility] Start: 08-03-2024 End: 08-03-2024 Bamboo flowsheet Blaise Chicas DPM Work Phone: [facility] Start: 08-03-2024 End: 08-03-2024 Bamboo flowsheet Blaise Chicas DPM Work Phone: [facility] Start: 08-03-2024 End: 08-03-2024 Patient encounter procedure Blaise Chicas DPM Work Phone: [facility] Comment on above: Verruca plantaris (P rimary Dx); Foot pain, right; Xerosis cutis Start: 08-03-2024 End: 08-03-2024 ambulatory BLAISE CHICAS Not Available Start: 08-01-2024 End: 08-01-2024 Bamboo flowsheet Barrie Montoya MD Work Phone: [facility] Start: 08-01-2024 End: 08-01-2024 Bamboo flowsheet Barrie Montoya MD Work Phone: [facility] Start: 08-01-2024 End: 08-01-2024 Office outpatient visit 25 minutes Barrie Montoya MD Work Phone: [facility] Comment on above: Neurogenic pain (Jyothi kervin Dx); Benign essential tremor Start: 08-01-2024 End: 08-01-2024 ambulatory BARRIE MONTOYA Not Available Start: 07-20-2024 End: 07-20-2024 Bamboo flowsheet Blaise Chicas DPM Work Phone: [facility] Start: 07-20-2024 End: 07-20-2024 Bamboo flowsheet Blaise Chicas DPM Work Phone: [facility] Start: 07-20-2024 End: 07-20-2024 Patient encounter procedure Blaise Chicas DPM Work Phone: [facility] Comment on above: Verruca plantaris (P rimary Dx); Foot pain, right; Xerosis cutis Start: 07-20-2024 End: 07-20-2024 ambulatory BLAISE CHICAS Not Available Start: 07-06-2024 End: 07-06-2024 Bamboo flowsheet Blaise Chicas DPM Work Phone: [facility] Start: 07-06-2024 End: 07-06-2024 Perezboo tarik Blaise Chicas DPM Work Phone: [facility] Start: 07-06-2024 End: 07-06-2024 Office outpatient visit 15 minutes Blaise Chicas DPM Work Phone: [facility] Comment on above: Xerosis cutis (Prima ry Dx); Verruca plantaris; Foot pain, right; Diabetes mellitus due to underlying condition with diabetic polyneuropathy, unspecified whether residential insulin use (CMS/[facility]); Onychomycosis; Toe pain, bilateral Start: 07-06-2024 End: 07-06-2024 ambulatory BLAISE CHICAS Not Available Start: 07-05-2024 End: 07-05-2024 ambulatory JEFF [facility] Start: 06-07-2024 End: 06-07-2024 ambulatory RUTHIE [facility] Start: 06-05-2024 End: 06-05-2024 ambulatory [facility] Start: 06-01-2024 End: 06-01-2024 ambulatory BLAISE CHICAS Not Available Start: 04-20-2024 End: 04-20-2024 ambulatory BLAISE CHICAS Not Available Start: 03-03-2024 End: 03-03-2024 ambulatory [facility] Start: 02-10-2024 End: 02-10-2024 ambulatory BLAISE CHICAS Not Available Start: 02-02-2024 ambulatory Nereyda Cabrera ty:Uri Start: 01-11-2024 End: 01-11-2024 ambulatory BARRIE MONTOYA Not Available Start: 12-09-2023 ambulatory Nereyda Cabrera ty:Uri Start: 10-14-2023 End: 10-14-2023 Patient encounter procedure Nereyda Gomez [facility] Start: 10-01-2023 End: 10-01-2023 Patient encounter procedure Nereyda Gomez [facility] Start: 10-01-2023 End: 10-01-2023 Patient encounter procedure Nereyda Gomez [facility] Start: 09-13-2023 End: 09-13-2023 Patient encounter procedure Nereyda Gomez [facility] Start: 06-10-2023 End: 06-10-2023 Patient encounter procedure Nereyda Gomez [facility] Start: 04-15-2023 End: 04-15-2023 Lab Drop off Nereyda Gomez [facility] Start: 04-13-2023 End: 04-13-2023 Patient encounter procedure Nereyda Gomez [facility] Start: 03-24-2023 End: 03-25-2023 ambulatory [...] End: 06-09-2022 Patient encounter procedure Nereyda Gomez [facility] Start: 06-08-2022 End: 06-09-2022 ambulatory ALSTON THUY Facility:[facility] Start: 05-11-2022 End: 05-11-2022 Patient encounter procedure Napoleon NOVA [facility] Start: 04-28-2022 End: 04-29-[address] PJ YOUSSEF . Facility:[facility] Start: 03-31-2022 End: 03-31-2022 Patient encounter procedure Nereyda Gomez [facility] Start: 2019 End: 02-07-2019 Patient [...] DERM [address] [place] [address] Rodney Joy MD [address] [place] [address] [facility] Start: 02-15-2025 End: 02-15-2025 Patient encounter procedure 02/15/2025 8:40 AM EDT Office Visit [facility] [address] [facility] [address] [place] [address] Blaise Chicas, DPM [address] [facility] [address] [place] [address] [facility] Start: 11-30-2024 End: 11-30-2024 Patient encounter procedure [facility] Comment on above: Verruca plantaris (P rimary Dx); Foot pain, right; Diabetes mellitus due to underlying condition with diabetic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 Reason for today's visit: Follow up for CKD stage 3, Hypertension, Edema/ Fluid overload, and Electrolytes disturbances SUBJECTIVE: BACKGROUND: Nadir Beth is a 84 y.o. male has a past medical history of Atrial fibrillation ([facility]), CHF (congestive heart failure) ([facility]), Chronic kidney disease, COPD (chronic obstructive pulmonary disease) ([facility]), Coronary artery disease, Diabetes mellitus ([facility]), Heart valve disease, Hypertension, Pericardial effusion, and Sleep apnea. History of paroxysmal atrial fibrillation maintained on anticoagulation with Eliquis, aortic stenosis, renal artery stenosis, and hypertension. He had stenting of the left renal artery from the left radial approach on 05/01/2015 (Express SD 6 mm x 18 mm stent). He was admitted to the [facility] in August 2022 due to hyponatremia, [...] crush or chew. p (more content not included)...[facility]07-24-2024 Note Attestation signed by Ruthie Linda MD at 06/07/2024 7:40 PM I saw, interviewed, examined and evaluated the patient with Nephrology fellow Dr. Jeff Reyes. I participated in the medical management of the patient. I reviewed the fellow's note and agree with the fellow's documentation in the note. Ruthie Linda MD Faculty, Division of Nephrology, Department of Medicine, [facility]. [facility] Patient: Nadir Beth; 84 y.o. Visit date: 06/07/24 Reason for today's visit: Follow up for CKD stage 3, Hypertension, Edema/ Fluid overload, and Electrolytes disturbances SUBJECTIVE: BACKGROUND: Nadir Beth is a 84 y.o. male has a past medical history of Atrial fibrillation ([facility]), CHF (congestive heart failure) ([facility]), Chronic kidney disease, COPD (chronic obstructive pulmonary disease) ([facility]), Coronary artery disease, Diabetes mellitus ([facility]), Heart valve disease, Hypertension, Pericardial effusion, and Sleep apnea. History of paroxysmal atrial fibrillation maintained on anticoagulation with Eliquis, aortic stenosis, renal artery stenosis, and hypertension. He had stenting of the left renal artery from the left radial approach on 05/01/2015 (Express SD 6 mm x 18 mm stent). He was admitted to the [facility] in August 2022 due to hyponatremia, [...] cholecalciferol (Vitamin D3) 25 (more content not included)...[facility]07-22-2024 NoteUT [facility]iology - [facility] Subjective Nadir Beth is a [...] diuretic therapy. He was admitted to the [facility] in August 2022 due to hyponatremia, hyperkalemia and acute kidney injury, leukocytosis secondary to COVID-19 causing dehydration. I saw him on 05/24/2023 and the office and he had significant evidence of volume overload by exam and echocardiogram. I intensified his diuretic regimen. He ended up getting admitted to the [facility] with acute heart failure exacerbation and [...] and 2+ o (more content not included)... [facility]04-19-2024 NoteUT Cardiology [facility] Subjective Nadir Beth is a [...] extremity edema. He was admitted to the [facility] in August 2022 due to hyponatremia, hyperkalemia and acute kidney injury, leukocytosis secondary to COVID-19 causing dehydration. I saw him on 05/24/2023 and the office and he had significant evidence of volume overload by exam and echocardiogram. I intensified his diuretic regimen. He ended up getting admitted to the [facility] with acute heart failure exacerbation and [...] tenderness. Musculoskeletal: General: N (more content not included)...[facility] 10-14-2023 Hospital Discharge instructions Patient Education [...] as fried or sweet foods. These include maltese fries, hamburgers, cookies, candies, and soda. Drink enough fluid to keep your urine pale yellow. General instructions Exercise regularly or as told by your health care provider. Try to do 150 minutes of moderate exercise each week. Use the bathroom when you have the urge to go. Do not hold it in. Take gidu-tdv-ggahfpx and prescription medicines only as told by [...] to keep your urine pale yellow. Take kdhq-map-heujbmb and prescription medicines only as told by your health care provider. This includes any fiber supplements. This information is not intended to replace advice given to you by your health care provider. Make sure you discuss any questions you have with your health care provider. Document Revised: 09/18/2020 Document Reviewed: 09/18/2020 [employer] Patient Education 2022 [employer]. Follow Up Care 10/01/2023 12:57:46 With:Nereyda Gomez CNP Address: When:1 month [facility] 11-17-2023 Hospital Discharge instructions Patient [...] Bulgur wheat. Millet. Quinoa. Bran muffins. Popcorn. Fontana wafer crackers. Meats and other proteins [place] beans, kidney beans, and mendez beans. Soybeans. [...] Cream cheese. Sour cream. Fats and oils [place]. Beverages Soft drinks. Other foods Cakes and [...] provider. Document Revised: 03/06/2021 Document Reviewed: 03/06/2021 [employer] Patient Education 2022 [employer]. Follow Up Care 09/20/2023 08:43:45 With:Nereyda Gomez CNP Address:Unknown When: Unknown [facility] 11-17-2023 Evaluation + Plan note Future Scheduled Tests Laboratory* CBC w/ Auto Diff 10/01/23 * Comprehensive Metabolic Panel 10/01/23 * Thyroid Stimulating Hormone 10/01/23 [facility] 07-27-2023 Hospital Discharge instructions Patient Education 06/10/2023 10:41:11 [...] hard liquor (44 mL). General instructions Take acmx-pjd-wwrmqtf and prescription medicines only as told by [...] provider. Document Revised: 02/19/2021 Document Reviewed: 02/19/2021 [employer] Patient Education 2022 KAYAK Follow Up Care 04/13/2023 14:39:27 With:Nereyda Gomez CNP Address: When:3 months [facility] 05-30-2023 Hospital Discharge instructions Patient [...] including vitamins, herbs, eye drops, creams, and qjno-din-nerpnap medicines. Any problems you or family members [...] provider tells you to take them. Taking twer-ddh-qsilcvt medicines, vitamins, herbs, and supplements. General instructions [...] provider. Document Revised: 10/26/2022 Document Reviewed: 06/24/2022 [employer] Patient Education 2022 [employer]. Follow Up Care 04/09/2023 11:27:16 With:Nereyda Gomez CNP Address: When:1 month [facility] 09-03-2022 NoteEXAM: US CHANI DOP [...] Electronically authenticated by: PREETI ROBERTS Date: 2022-07-18 09:05[facility]07-26-2022 Hospital Discharge instructions Patient Education 06/09/2022 [...] per serving. Talk with a diet and fire prevention specialist (dietitian) if you have questions about [...] Bulgur wheat. Millet. Quinoa. Bran muffins. Popcorn. Fontana wafer crackers. Meats and other proteins [place], kidney, and mendze beans. Soybeans. Split peas. Lentils. Nuts and [...] Cream cheese. Sour cream. Fats and oils [place]. Beverages Soft drinks. Other foods Cakes and [...] 11/01/2006 Document Revised: 09/05/2018 Document Reviewed: 09/05/2018 [employer] Patient Education 2020 [employer]. 06/09/2022 10:13:34 Hemorrhoids Hemorrhoids Hemorrhoids are swollen [...] 3 times a day. General instructions Take vvks-jtz-apvyibc and prescription medicines only as told by [...] 10/29/2001 Document Revised: 03/29/2020 Document Reviewed: 03/23/2019 [employer] Patient Education 2020 [employer]. 06/09/2022 10:13:31 Diverticulosis Diverticulosis Diverticulosis is a [...] overweight. Not getting enough exercise. Smoking. Taking swxt-ioy-ivnlier pain medicines, like aspirin and ibuprofen. Having [...] health care provider or your diet and fire prevention specialist (dietitian). ?Take a fiber supplement or probiotic, if your health care provider approves. Take ckwv-ykn-vyddpau and prescription medicines only as told by [...] 07/29/2005 Document Revised: 10/14/2018 Document Reviewed: 09/20/2017 [employer] Patient Education 2020 [employer]. 06/09/2022 10:13:30 Colon Polyps Colon Polyps Polyps [...] 07/28/2005 Document Revised: 02/16/2019 Document Reviewed: 02/16/2019 [employer] Patient Education 2020 [employer]. Follow Up Care 05/13/2022 14:18:17 With:Nereyda Gomez CNP Address: When:1 year only if needed [facility] [id number] Evaluation + Plan noteExtracted from: Title:Anesthesia post op endo Author:Jeffrey Gr MD Date:05/11/22 Plan Transfer/ Discharge: Patient can be discharged from PACU when criteria met. Condition good. Extracted from: Title:Anesthesia Pre-Op endo 2 Author:Jeffrey Gr MD Date:05/11/22 Plan [place] [employer] Anesthesiologists (ASA) physical status classification: [...] heart and lungs, allergic reactions, and .. [facility]06-27-2022 Hospital Discharge instructions Patient Education 05/11/2022 11:13:39 Colonoscopy, Care After Surgery Salam (CUSTOM) Colonoscopy Care After Surgery Please read the instructions outlined below and refer to this sheet in the next few weeks. These discharge instructions provide you with general information on caring for yourself after you leave thehospital. Your doctor may also give you specific [...] 07/28/2005 Document Revised: 02/16/2019 Document Reviewed: 02/16/2019 [employer] Patient Education 2020 [employer]. 05/11/2022 11:13:39 Diverticulosis MAGR (CUSTOM) Diverticulosis Many [...] unsweetened, w/added ascorbic acid 1 cup 0.5 [place] 1 cup 0.7 Vegetables Cooked Green beans 1 cup 4.0 Carrots 1/2 cup sliced 2.3 Peas 1 cup 8.8 Potato (baked, with skin) 1 medium potato 3.8 [place] (with peel) 1 cucumber 1.5 Lettuce 1 [...] 8.7 Peanuts 1/2 cup 7.9 Chart from UpDate 2013. SEEK IMMEDIATE MEDICAL CARE IF: You [...] Reference. Available at http://www.nal.usda.gov/fnic/foodcomp/search/. Information adapted from: [facility] Patient Information 2009 [employer]. [employer] 2012 http://www.[employer]ark[employer]/contents/kndwgvrvgmsj-ifhisoc-uutzgc-the-basics Follow Up Care 03/31/2022 10:27:32 With:Napoleon NOVA Address: [address] [place], [place] [address]dict [address] [place] [address] Business (1) When: Unknown Comments:office will call for follow up [facility]05-17-2022 Hospital Discharge instructions Patient Education 03/31/2022 09:58:01 [...] including vitamins, herbs, eye drops, creams, and uuxu-jxs-ufncolp medicines. Any problems you or family members [...] 10/29/2001 Document Revised: 08/24/2018 Document Reviewed: 01/12/2017 [employer] Patient Education 2020 [employer]. Follow Up Care 03/23/2022 12:11:50 With:Nereyda Gomez CNP Address: When:1 month [facility] Evaluation + Plan note Future Appointments Appointment Date:05/25/2022 08:45:00 AM Scheduled Provider: Location:[facility] Appointment Type:Surgery FT [facility] Evaluation + Plan note Future Appointments Appointment Date:06/10/2023 10:40:00 AM Scheduled Provider:Nereyda Gomez CNP [facility] Type[facility] Follow Up Future Scheduled Tests Laboratory* Fecal WBC Lactoferrin 04/13/23 * Giardia lamblia, Direct Detection EIA 04/13/23 * O & P Exam, Routine 04/13/23 * Clostridium Difficile PCR 04/13/23 * Enteric Panel by PCR 04/13/23 [facility] Evaluation + Plan note Future Appointments Appointment Date:06/10/2023 10:40:00 AM Scheduled Provider:Nereyda Gomez CNP Location:[facility] Appointment Type:[facility] Follow Up Diagnostic Tests Pending * O & P Exam, Routine 04/15/23 * Giardia lamblia, Direct Detection EIA [facility]23 [facility] App[facility]ments Appointment Date:09/13/2023 10:40:00 AM Scheduled Provider:Nereyda Gomez CNP Location:[facility] Appointment Type:BAD Follow Up [facility] Evaluation + Plan note Future Appointments Appointment Date:10/14/2023 02:20:00 PM Scheduled Provider:Nereyda Gomez CNP Location[facility] App[facility]ment Type:[facility] Follow Up Future Scheduled Tests Laboratory* CBC w/ Auto Diff 10/01/23 * Comprehensive Metabolic Panel 10/01/23 * Thyroid Stimulating Hormone 10/01/23 [facility] Evaluation + Plan note Future Appointments Appointment Date:12/09/2023 02:00:00 PM Scheduled Provider:Nereyda Gomez CNP Location[facility] Appointment Type:[facility] Follow Up Future Scheduled Tests Laboratory* CBC w/ Auto Diff 10/01/23 * Comprehensive Metabolic Panel 10/01/23 * Thyroid Stimulating Hormone 10/01/23 [facility] Evaluation + Plan note Future Appointments Appointment Date:10/26/2024 09:30:00 AM Scheduled Provider: Location:[facility] Appointment Type:URO Nurse Visit Appointment Date:12/04/2024 08:40:00 AM Scheduled Provider:MARQUIS LOUISE MD Location:[facility] Appointment Type:URO Office Visit Future Scheduled Tests Laboratory* CBC w/ Auto Diff 10/01/23 * Comprehensive Metabolic Panel 10/01/23 * Thyroid Stimulating Hormone 10/01/23 [facility] Evaluation + Plan note Future Appointments Appointment Date:11/06/2024 09:00:00 AM Scheduled Provider: Location:[facility] Appointment Type:URO Nurse Visit Appointment Date:12/04/2024 08:40:00 AM Scheduled Provider:MARQUIS LOUISE MD Location:[facility] Appointment Type:URO Office Visit Future Scheduled Tests Laboratory* CBC w/ Auto Diff 10/01/23 * Comprehensive Metabolic Panel 10/01/23 * Thyroid Stimulating Hormone 10/01/23 [facility] Evaluation + Plan note Future Appointments Appointment Date:12/04/2024 08:40:00 AM Scheduled Provider:MARQUIS LOUISE MD Location:[facility] Appointment Type:URO Office Visit Future Scheduled Tests Laboratory* CBC w/ Auto Diff 10/01/23 * Comprehensive Metabolic Panel 10/01/23 * Thyroid Stimulating Hormone 10/01/23 [facility] evaluation + Plan note Future Appointments Appointment Date:06/11/2025 11:40:00 AM Scheduled Provider:LU OLMEDO PA-C Location:[facility] Appointment Type:URO Office Visit Future Scheduled Tests Laboratory* CBC w/ Auto Diff 10/01/23 * Comprehensive Metabolic Panel 10/01/23 * Thyroid Stimulating Hormone 10/01/23 [facility] Evaluation note* Diagnosis Melanocytic nevus of trunk- Primary Benign neoplasm of skin of trunk, except scrotum Actinic keratosis Lentigines Seborrheic keratosis documented in this encounter [facility] HealthcareEvaluation note* Diagnosis Benign essential tremor- Primary [...] underlying condition with diabetic polyneuropathy, 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 (CMS/HCC) Pain due to onychomycosis of toenails of both feet documented in this encounter [facility] HealthcareEvaluation note* Diagnosis Xerosis cutis- Primary Other specified disease of sebaceous glands Verruca plantaris Plantar wart Foot pain, right Pain in soft tissues of limb Diabetes mellitus due to underlying condition with diabetic polyneuropathy, unspecified whether residential insulin use (CMS/HCC) Onychomycosis Dermatophytosis of nail Toe pain, bilateral documented in this encounter [facility] HealthcareEvaluation note* Diagnosis Verruca plantaris- Primary Plantar wart Foot pain, right Pain in soft tissues of limb Xerosis cutis Other specified disease of sebaceous glands documented in this encounter [facility] HealthcareEvaluation note* Diagnosis Neurogenic pain- Primary Benign essential tremor Essential and other specified forms of tremor documented in this encounter [facility] HealthcareEvaluation note* Diagnosis Benign essential tremor- Primary [...] underlying condition with diabetic polyneuropathy, unspecified whether residential insulin use (CMS/HCC) Pain due to onychomycosis of toenails of both feet documented in this encounter [facility] HealthcareHospital course Narrative No data available for this section [facility] Discharge instructions No data available for this [facility] available for this section [facility] Summary Purpose Family History No Family History [...] and content) DATE CREATED AUTHOR 02/09/2019 [facility] DATE CREATED AUTHOR AUTHOR'S ORGANIZ ATION 03/28/2023 [facility] DATE CREATED AUTHOR AUTHOR'S ORGANIZ ATION 12/03/2024 [facility] EPIC DATE CREATED AUTHOR AUTHOR'S ORGANIZ ATION 12/06/2024 [facility] DATE CREATED AUTHOR AUTHOR'S ORGANIZ ATION 01/10/2025 [facility] (unrecognized sect ion and content) [employer] Relationship Specialty Start Date End Date Pj Youssef MD [address] [place] [address] PCP - General Family Medicine 12/02/23 [employer] Relationship Specialty Start Date End Date Pj Youssef MD [address] [place] [address] PCP - General Family Medicine 12/02/23 [employer] Relationship Specialty Start Date End Date jP Youssef MD [address] [place] [address] PCP - General Family Medicine 12/02/23 [employer] Relationship Specialty Start Date End Date Pj Youssef MD [address] [facility] [address] PCP - General Family Medicine 12/02/23 [employer] Relationship Specialty Start Date End Date Pj Youssef MD [address] [facility] [address] PCP - General Family Medicine 12/02/23 [employer] Relationship Specialty Start Date End Date Pj Youssef MD [address] [facility] [address] PCP - General Family Medicine 12/02/23 [employer] Relationship Specialty Start Date End Date Pj Youssef MD [address] [facility] [address] PCP - General Family Medicine 12/02/23 [employer] Relationship Specialty Start Date End Date Pj Youssef MD [address] [facility] [address] PCP - General Family Medicine 12/02/23 [employer] Relationship Specialty Start Date End Date jP Youssef MD [address] [facility] [address] PCP - General Family Medicine 12/02/23 [employer] Relationship Specialty Start Date End Date Pj Youssef MD [address] [facility] [address] PCP - General Family Medicine 1/18/24 Reason for Visit (unrecogniz ed section and content) Reason Comments Skin Check Reason Comments DM Foot Care DM Nails Reason Comments DM Foot Care Dm Nails Reason Comments Follow-up Rt lesion follow up Reason Comments Follow-up Rt lesions Reason Comments Tremors Reason Comments DM Foot Care Dm nail care FOR RECORDS PERTAINING TO PATIENTS WHO ARE [...] BE BASED ON THE PRIMARY CLINICAL RECORDS. [employer] provides no warranty or guarantee of the accuracy or completeness of information in this document.
[2025-01-18 11:30] LABS: Basophils Absolute Auto 0.1 10^3/uL (0.0-0.1); Basophils Percent Auto 0.6 % (0.2-2.0); Eosinophils Absolute Auto 0.3 10^3/uL (0.0-0.7); Eosinophils Percent Auto 2.8 % (0.9-7.0); Hematocrit 37.4 % (42.0-54.0); Hemoglobin 11.6 g/dL (14.0-18.0); Immature Granulocytes Abs Auto 0.03 10^3/uL (0.00-0.03); Immature Granulocytes Pct Auto 0.3 % (0.0-0.5); Lymphocytes Absolute Auto 0.8 10^3/uL (1.2-3.8); Mean Corpuscular Hemoglobin 30.1 pg (25.9-34.0); Mean Corpuscular Volume 96.9 fL (80.0-94.0); Mean Platelet Volume 11.5 fL (9.5-13.5); Monocytes Absolute Auto 0.7 10^3/uL (0.3-0.8); Monocytes Percent Auto 8.1 % (1.7-12.0); Neutrophils Absolute Auto 7.1 10^3/uL (1.4-6.5); Neutrophils Percent Auto 79.2 % (43.0-75.0); Platelet Count 242 10^3/uL (150-450); Red Blood Count 3.86 10^6/uL (4.70-6.10)
[2025-01-18 11:41] LABS: Ammonia <10 umol/L (11-32)
[2025-01-18 11:56] LABS: Alanine Aminotransferase 21 U/L (16-63); Albumin Level 3.3 g/dL (3.4-5.0); Alkaline Phosphatase 89 U/L (46-116); Aspartate Amino Transferase 13 U/L (15-37); BUN Creatinine Ratio 18.1; Bilirubin Total 0.3 mg/dL (0.2-1.0); Calcium 8.9 mg/dL (8.5-10.1); Carbon Dioxide 27.5 mmol/L (21.0-32.0); Chloride 105 mmol/L (98-107); Estimated GFR (African America 50 (>=60 mL/min/1.73m^2); Estimated GFR (Non-African Ame 41 (>=60 mL/min/1.73m^2); Free T3 2.15 pg/mL (2.18-3.98); Globulin 3.4 g/dL; Glucose 260 mg/dL (74-106); Potassium 4.5 mmol/L (3.5-5.1); Sodium 142 mmol/L (136-145); Thyroid Stimulating Hormone 1.472 uIU/mL (0.358-3.740); Total Protein 6.7 g/dL (6.4-8.2)
== END 2025-01-18 11:08 | disposition home or self-care (01) ==
LOC: LAB 11:08
PROVIDERS: PCP Family Medicine; Visit Provider Family Medicine
DX: R35.0 Frequency of micturition (principal); R60.9 Edema, unspecified; E11.9 Type 2 diabetes mellitus without complications; I50.30 Unspecified diastolic (congestive) heart failure; I11.0 Hypertensive heart disease with heart failure
CPT/HCPCS: 36415; 80053; 82140; 83880; 84436; 84443; 84481; 85025

== ENCOUNTER 2025-01-21 08:52 | Outpatient (REF) | payer MEDICARE, SELFPAY | END 2025-01-21 08:53 | disposition home or self-care (01) | LOC: LAB 08:52 | PROVIDERS: PCP Family Medicine; Visit Provider Family Medicine | DX: R60.9 Edema, unspecified (principal); R35.0 Frequency of micturition; E11.9 Type 2 diabetes mellitus without complications; I50.30 Unspecified diastolic (congestive) heart failure; I11.0 Hypertensive heart disease with heart failure | CPT/HCPCS: 87070; 87205 ==

== ENCOUNTER 2025-02-14 06:39 | Outpatient (OUT) | payer MEDICARE, SELFPAY ==
--- OUTSIDE RECORDS SUMMARY | 2025-02-14 06:42 | XMS_ITS | CCD ---
Author Organization [facility] Care Team Providers Care Catheterization Laboratory Technician Name Role Phone PHYSICIAN, DEFAULT Admitting Unavailable PHYSICIAN, DEFAULT Attending Unavailable PJ YOUSSEF Primary Care Unavailable Pj Youssef Primary Care Physician [phone] HOY ., DR ARAUJO Primary Care Unavailable HOY ., DR ARAUJO Consulting Unavailable HOY ., DR ARAUJO Attending Unavailable HOY ., DR ARAUJO Admitting Unavailable ZIEBER, DR CLOVER Zimmer Consulting Unavailable BISHOP PAIUTE, DR CRAMER Consulting Unavailable HOY ., DR ARAUJO Primary Care Unavailable BISHOP PAIUTE, DR CRAMER Attending Unavailable BISHOP PAIUTE, DR CRAMER Admitting Unavailable BISHOP PAIUTE, DR CRAMER Consulting Unavailable HOY ., DR ARAUJO Primary Care Unavailable BISHOP PAIUTE, DR CRAMER Attending Unavailable BISHOP PAIUTE, DR CRAMER Admitting Unavailable HOY ., DR ARAUJO Consulting Unavailable HOY ., DR ARAUJO Primary Care Unavailable HOY ., DR ARAUJO Attending Unavailable HOY ., DR ARAUJO Admitting Unavailable BISHOP PAIUTE, DR CRAMER Consulting Unavailable HOY ., DR ARAUJO Primary Care Unavailable BISHOP PAIUTE, DR CRAMER Attending Unavailable BISHOP PAIUTE, DR CRAMER Admitting Unavailable HOY ., DR [...] Pineda GUSTAFSON, Pj Fernandez Primary Care Provider [phone] BARRIE MONTOYA Attending Unavailable BLAISE CHICAS Attending [...] Unavail able NKANSAH-AMANKRA, MARQUIS Attending Unavail able CLARIBEL CISNEROS Attending Unavailable ROBERUKACLARIBEL ARCHER Attending Unavailable CLARIBEL CISNEROS Attending Unavailable JEFF REYES Attending Unavailable BISHOP PAIUTERUTHIE Attending Unavailable RUTHIE LINDA Attending Unavailable Allergies Allergy Classification Reported Allergen(s) Allergy Type Date of Onset Reaction(s) Facility (20 sources) Aminolevulinic Acid; Translations: [aminolevulinic acid] Drug Allergy 11-04-20 13 Unknown [facility] Repository (1 source) NITRO PATCH; Translations: [NITRO PATCH] Propensity to adverse reactions (disorder) 03-18-20 12 [facility] Repository (18 sources) Contrast media; Translations: [Contrast Dye] Drug allergy Unknown (qualifier value) [facility] (20 sources) Hmg-Coa Reductase Inhibitors (Statins); Translations: [statins] Allergy to substance 08-24-20 23 Unknown [facility] (20 sources) Nitroglycerin; Translations: [nitroglycerin] Drug Allergy 02-23-20 22 Unknown (qualifier value) [facility] (2 sources) black walnut pollen extract; Translations: [ABHPHAC-CCO-MMG REDUCTASE INHIBITORS] Drug Allergy 04-21-20 17 [facility] Repository (1 source) Iodine (And Iodine Containting Drugs) Drug allergy (disorder) 05-28-20 16 [facility] Repository (20 sources) Nitroglycerin Allergy to substance 02-23-20 22 [facility] (20 sources) Iodinated Contrast Media; Translations: [IODINATED CONTRAST MEDIA] Drug Allergy 07-17-20 22 [facility] (4 sources) Simvastatin; Translations: [simvastatin] Drug Allergy elevated liver enzymes [facility] (1 source) Aminolevulinic Acid; Translations: [aminolevulinic acid] Drug Allergy 11-04-20 13 [facility] Repository (1 source) Nitroglycerin; Translations: [Nitroglycerin Patch] Drug Allergy [facility] Repository Medications Current Medications Medication Drug Class(es) Dates Sig (Normalized) Sig (Original) acetaminophen 325 mg / HYDROcodone bitartrate 5 mg oral tablet (4 sources) Opioid Agonist Start: 10-16-2024 take 1 tablet by mouth every six hours as needed for pain, then take 2 tablets by mouth every six hours as needed for pain Ruidoso 325 mg-5 mg oral tablet 1 tab(s), Oral, q6hr, 2 tab(s), Refill(s) 0, Take q6hrs as needed for pain., [facility]/pharmacy #[id number], 185, cm, 10/02/24 11:15:00 [...] procedure., # 6 tab(s), Refills(s) 0, Pharmacy: [facility]/pharmacy #[id number], 185, cm, 10/02/24 11:15:00 EST, Height/Length Dosing, 91, kg, 10/02/24 11:15:00 EST, Weight Dosing Start Date: 10/16/24 Status: Ordered Start: 08-11-2024 take 1 tablet by joslyn th twice daily Cipro 500 mg Tab 500 mg = 1 tab(s), Oral, BID, Start 3 days prior to procedure., # 6 tab(s), Refills(s) 0, Pharmacy: [facility]/pharmacy #[id number], 185, cm, 08/08/24 10:28:00 [...] procedure., # 1 tab(s), Refills(s) 0, Pharmacy: [facility]/pharmacy #[id number], 185, cm, 10/02/24 11:15:00 [...] take 1 tablet by mouth in the ak rning glimepiride (Amaryl) 4 MG tablet Take [...] Prior to colonoscopy Per physician's instructions, [facility]/pharmacy #[id number], 185, cm, 03/31/22 9:58:00 [...] week(s), # 42 tab(s), Refills(s) 0, Pharmacy: [facility]/pharmacy #[id number], 185, cm, 10/02/24 11:15:00 [...] Date: 01/09/19 Status: Ordered 60 actuat tiotropium 0.55251 mg/actuat inhalation spray (16 sources) Anticholinergic Start: [...] Discontinued Start: 08-28-2020 take 1 capsule by [facility] once daily Align 4 mg oral capsule 4 mg = 1 cap(s), Oral, Daily, Take after completing the Antibiotics course, # 28 cap(s), Refills(s) 0, [id number], cm, 08/28/20 12:05:00 EDT, [...] # 160 cap(s), Refills(s) 1, [id number] 185, cm, 08/28/20 12:05:00 EDT, [...] disease (2 sources) Atherosclerotic heart disease of [place] coronary artery without angina pectoris; Translations: [Atherosclerotic heart disease of [place] coronary artery without angina pectoris] Onset: 12-14-2024 [...] sources) Long-term current use of anticoagulant; Translations: [assisted [...] Onset: 04-30-2022 Episodic Other aftercare (1 source) assisted (current) use of aspirin; Translations: [GROUP HOME CURRENT USE OF ASPIRIN] Onset: 08-27-2022 Episodic Other aftercare (1 source) assisted (current) use of anticoagulants; Translations: [BATTERY ENGINEER CURRNT USE ANTICOAGULANTS] Onset: 08-27-2022 Episodic Other aftercare (1 source) Other chcf (current) drug therapy; Translations: [OTH BATTERY ENGINEER CURRENT DRUG THERAPY] Onset: 08-27-2022 Episodic Other [...] Interpretation Reference Range Facility Follow-Upon 01-03-2025 Follow-Up [id number] Nadir Beth 1940 M Date Provider Department Center 01/03/2025 RUTHIE OWEN [facility] Comprehensiv Family History Problem Relation Age of Onset Coronary artery disease Father Family Status - Relation Status Age at Father Level of Service:52052 AR OFFICE/OUTPATIENT ESTABLISHED MOD MDM 30 MIN () Reason for Visit and Comments: Follow-up [603404] [facility] Office Visiton 12-14-2024 Follow-up visit [id number] KiritNadir L 1940 M Date Provider Department Center 12/14/2024 CLARIBEL VILLALOBOS MILKA Dominguez [facility] Family History Problem Relation Age of Onset Coronary artery disease Father Family Status - Relation Status Age at Father Level of Service:40453 AR OFFICE/OUTPATIENT ESTABLISHED MOD MDM 30 MIN [facility] Ambulatory Visit Summaryon 0 12-04-2024 Ambulatory [...] This Is Your Medications List acetaminophen-hydrocod one (Ruidoso 325 mg-5 mg oral tablet) ciprofloxacin (Cipro [...] HENDERSON, LU Sweet Where: [facility] [address] [place] [address] [place] [address]- You Need to Schedule the Following Appointments Follow Up with ADRIAN GUSTAFSON, ADAN CHO When: In 6 months Comments: Can see DIAMANTE, w/PVR Where: Medications What How Much When Why Instructions Unchanged acetaminophen-hydrocod one (Ruidoso 325 mg-5 mg oral tablet) 1 Tablets [...] concerns Uncha (more content not included)... Normal [facility] Urology Office/Clinic Noteon 12-04-2024 Urology Office/Clinic Note [...] out of his penis. Pt presented to [facility] ER 10/28/24 due to clot retention. [...] 7. 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) Pt presented to [facility] ER 08/06/24 with redness on the [...] penis. -Cont symptomatic monitoring 8. Anticoagulated (Z79.01: assisted (current) use of anticoagulants) Taking Eliquis, has restarted since UroLift. Hx of cardioversion. Increased risk for bleeding. Elevated r (more content not included)... Normal [facility] Comment on above: Result Comment: Elec tronically [...] Is Your Medications List NIFEdipine acetaminophen-hydrocod one (Ruidoso 325 mg-5 mg oral tablet) acyclovir apixaban [...] MARQUIS LOUISE MD Where: [facility] [address], [address] [place] [address]- Medications What How Much When Why Instructions Unchanged acetaminophen-hydrocod one (Ruidoso 325 mg-5 mg oral tablet) 1 Tablets [...] included)... Normal [facility] Ambulatory Visit Summaryon 1 01-03-2024 Ambulatory Visit Summary Ambulatory Visit Summary NADIR BETH :1940 Visit Date:11/02/2024 Ambulatory Visit Instructions Your Diagnosis BPH with urinary obstruction Gross hematuria Incomplete bladder emptying OAB (overactive bladder) Acquired buried penis Balanitis Anticoagulated Your Care Team Attending Physician - ADRIAN GUSTAFSON, MARQUIS Primary Care Physician - Pj Youssef MD This Is Your Medications List acetaminophen-hydrocod one (Ruidoso 325 mg-5 mg oral tablet) ciprofloxacin (Cipro [...] AM EST With: Where: [facility] [address] [place] [address] [place] [address]- Wednesday 8:40 AM EST With: MARQUIS LOUISE MD Where: [facility] [address], [address] [place] [address]- You Need to Schedule the Following Appointments Follow Up with ADRIAN GUSTAFSON, ADAN CHO When: Where: Medications What How Much When Why Instructions Unchanged acetaminophen-hydrocod one (Ruidoso 325 mg-5 mg oral tablet) 1 Tablets [...] included)... Normal [facility] Urology Office/Clinic Noteon 11-02-2024 Urology Office/Clinic Note Urology Office/Clinic Note Chief Complaint er f/u HPI Staff 84 year old male here for [facility] ER F/U, difficulty urinating. Bladder scan [...] with voice recognition artificial intelligence software, specifically Lighting by LED, Tip or Skip and or AgFlow. Substitutions may have occurred due to the [...] out of his penis. Pt presented to [facility] ER 10/28/24 due to clot retention. [...] 6. 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) Pt presented to [facility] ER 08/06/24 with redness on the [...] penis. -Cont symptomatic monitoring 7. 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 Normal [facility] Comment on above: Result Comment: Elec tronically [...] Is Your Medications List NIFEdipine acetaminophen-hydrocod one (Ruidoso 325 mg-5 mg oral tablet) acyclovir apixaban [...] MARQUIS LOUISE MD Where: [facility] [address] [place] [address]- Medications What How Much When Why Instructions Unchanged acetaminophen-hydrocod one (Ruidoso 325 mg-5 mg oral tablet) 1 Tablets [...] included)... Normal [facility] Inpatient Patient Summaryon 10-23-2024 Inpatient Patient Summary Inpatient Patient Summary [place] [address] Clinical Summary Person Information Name: NADIR BETH Age: 84 Years : 1940 Sex: Male PCP: Pj Youssef MD Marital Status: Race: White Ethnicity: Non- or Language: Bulgarian Visit Id: Visit Reason: BPH WITH URINARY OBSTRUCTION, INCOMPLETE BLADDER EMPTYING Speciality: Acuity: Enc Type: Outpatient Med Service: Surgery Arrival: 10/23/2024 13:48:15 Discharge: Dispo Type: Address: [address] [facility] [id number] Provider Notes: Diagnosis: Problems Active BPH with [...] This Visit Final Med List: acetaminophen-hydrocod one (Ruidoso 325 mg-5 mg oral tablet) 1 Tablets [...] Hyperplasia Normal [facility] Main OR Intraoperative Recor don 10-23-2024 Main OR Intraoperative Record Main OR Intraoperative Record IntraOp Document Type FTURO Summary Primary Physician: MARQUIS LOUISE MD Finalized Date/Time: 10/23/24 15:03:19 Pt. Name: NADIR BETH /Sex: 1940 Male Med Rec #: [id number] Physician: MARQUIS LOUISE MD Financial #: [id number] Pt. Type: O Room/Bed: / Admit/Disch: 10/23/24 [...] Ana CHO Role Performed Surgeon - Primary Appraisal Specialist - Primary Scrub - Primary Time In [...] Implant Implant Identification Description UROLIFT Lot Number [id number] [employer] UROLIFT Catalog ???# UL2-[id number] Expiration Date 11/30/25 [...] included)... Normal [facility] Main OR Preoperative Recordo n 10-23-2024 Main OR Preoperative Record Main OR Preoperative Record Holding Area Document Type FTURO Summary Primary Physician: MARQUIS LOUISE MD Finalized Date/Time: 10/23/24 14:17:30 Pt. Name: KIRITNADIR/Sex: 1940 Male Med Rec #: [id number] Physician: MARQUIS LOUISE MD Financial #: [id number] Pt. Type: O Room/Bed: / Admit/Disch: 10/23/24 [...] Complaints of Pain: No Skin Integrity Intact, Start, Warm, & Dry Vitals - EU Blood Pressure 152/78 Pulse 84 bpm Respirations 18 br/min SPO2 90 % Additional None RN Reviewed Yes Specimens Collected Last Modified By: Oliva Goel 10/23/24 14:17:29 Finalized By: Oliva Goel Document Signatures Signed By: Preeti Kaur LPN 10/23/24 14:05 Oliva Goel 10/23/24 14:17 Normal [facility] Operative Reporton 4 Operative Report Operative Report [...] urethral meatus. We then placed the 20 Liberian cystoscope into the bladder. Bilobar hyperplasia was [...] able to easily navigate with a 20 Liberian scope. Scope was then removed and an 18 Liberian Palomares catheter was placed with return of light pink urine and no clots noted. This concluded the procedure. Patient was then transferred to PACU in stable condition. PLAN: Patient will follow-up in 2 days for Palomares catheter removal. 10 cc in the balloon Follow-up in 6 to 8 weeks with IPSS at that time Normal [facility] Comment on above: Result Comment: Elec tronically Signed By: MARQUIS LOUISE MD\.br\Date and Time Signed: 10/23/24 15:06 EST Outpatient Surgery Discharge Instructionon 10-23-2024 Outpatient Surgery Discharge Instruction Outpatient Surgery Discharge Instruction [place] [address] Patient Discharge Instructions PERSON INFORMATION Name: NADIR [...] included)... Normal [facility] Ambulatory Visit Summaryon 1 12-02-2023 Ambulatory Visit [...] included)... Normal [facility] Ambulatory Visit Summary Ambulatory Visit Summary NADIR [...] for (more content not included)... Normal [facility] Urology Office/Clinic Noteon 10-02-2024 Urology Office/Clinic Note [...] with voice recognition artificial intelligence software, specifically Lighting by LED, Tip or Skip and or AgFlow. Substitutions may have occurred due to the [...] -Cipro 500mg bid start the day prior, Ruidoso 325-5mg #2 q6hrs as needed for pain, [...] 3. 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) Pt presented to [facility] ER 08/06/24 with redness on the [...] and Lasix. -Dm control 6. Anticoagulated (Z79.01: assisted (current) use of anticoagulants) Taking Eliquis. Hx of cardioversion. Elevated risk for periop complications. Based on patient's age, multiple medical comorbidities and his prostate size we discussed extensively that he will benefit most likely from a UroLift procedure. He is amenable to (more content not included)... Normal [facility] Comment on above: Result Comment: Elec tronically Signed By: MARQUIS LOUISE MD\.br\Date and Time Signed: 10/02/24 11:43 EST\.br\Electronically Co-Signed By: Roxy Gatica\.br\Date and Time Co-Signed: 10/02/24 11:21 EST\.br\Electronically Co-Signed By: Roxy Gatica\.br\Date and Time Co-Signed: 10/02/24 11:22 EST\.br\Electronically Co-Signed By: Roxy Gatica\.br\Date and Time Co-Signed: 10/02/24 11:23 EST Inpatient Patient Summaryon 09-25-2024 Inpatient Patient Summary Inpatient Patient Summary [place] [address] Clinical Summary Person Information Name: NADIR BETH Age: 84 Years : 1940 Sex: Male PCP: Pj Youssef MD Marital Status: Race: White Ethnicity: Non- or Language: Bulgarian Visit Id: Visit Reason: ENLARGED PROSTATE WITH URINARY OBSTRUCTION, INCOMPLETE BLADDER EMPTYING Speciality: Acuity: Enc Type: Outpatient Med Service: Surgery Arrival: 09/25/2024 11:42:27 Discharge: Dispo Type: Address: [address] [facility] [id number] Provider Notes: Diagnosis: Problems Active BPH with [...] With: Address: When: MARQUIS LOUISE [address] [place] [phone] Business (1) Comments: Follow-up in the office in 2 weeks to discuss next plan With: Address: When: MARQUIS LOUISE [address] [place] [address] [phone] Business (1) Patient Education Information: Benign Prostatic Hyperplasia Normal [facility] Main OR Intraoperative Recor don 09-25-2024 Main OR Intraoperative Record Main OR Intraoperative Record IntraOp Document Type FTURO Summary Primary Physician: MARQUIS LOUISE MD Finalized Date/Time: 09/25/24 13:23:58 Pt. Name: NADIR BETH Joy Borja/Sex: 1940 Male Med Rec #: [id number] Physician: MARQUIS LOUISE MD Financial #: [id number] Pt. Type: O Room/Bed: / Admit/Disch: 09/25/24 [...] C KWABENA Role Performed Surgeon - Primary Appraisal Specialist - Primary Scrub - Primary Time In [...] 13:23 Normal [facility] Main OR Preoperative Recordo n 09-25-2024 Main OR Preoperative Record Main OR Preoperative Record Holding Area Document Type FTURO Summary Primary Physician: MARQIUS LOUISE MD Finalized Date/Time: 09/25/24 13:04:51 Pt. Name: NADIR BETH Joy Borja/Sex: 1940 Male Med Rec #: [id number] Physician: MARQUIS LOUISE MD Financial #: [id number] Pt. Type: O Room/Bed: / Admit/Disch: 09/25/24 [...] Complaints of Pain: No Skin Integrity Intact, Start, Warm, & Dry Vitals - EU Blood Pressure Pulse Respirations SPO2 Additional None RN Reviewed Yes Specimens Collected Last Modified By: Oliva Goel 09/25/24 13:04:50 Finalized By: Oliva Goel Document Signatures Signed By: Preeti Kaur LPN 09/25/24 12:49 Oliva Goel 09/25/24 13:04 [facility] Operative Reporton Operative Report Operative Report Patient: [...] next steps Impression and Plan Counseled: Family. [facility] Comment on above: Result Comment: Elec tronically Signed By: MARQUIS LOUISE MD\.br\Date and Time Signed: 09/25/24 13:27 EST Outpatient Surgery Discharge Instructionon 09-25-2024 Outpatient Surgery Discharge Instruction Outpatient Surgery Discharge Instruction [place] [id number] Patient Discharge Instructions PERSON INFORMATION Name: NADIR [...] MARQUIS ADRIAN [address] [place] [address] [phone] Business (1) Comments: Follow-up in the office in 2 weeks to discuss next plan With: Address: When: MARQUIS ADRIAN [address] [place] [address] [phone] Vontu (1) Comment: PATIENT EDUCATION INFORMATION Instructions: Benign [...] included)... Normal [facility] No Panel Informationon 08-24 [facility] Ambulatory Visit Summaryon 0 08-08-2024 Ambulatory Visit [...] included)... Normal [facility] Urology Office/Clinic Noteon 08-08-2024 Urology Office/Clinic Note Urology Office/Clinic Note Chief Complaint follow up to [facility] ER HPI Staff 84 year old male new patient follow up to [facility] 08/06/24 presented due to redness on [...] 1. 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) Pt presented to [facility] ER 08/06/24 with redness on the [...] included)... Normal [facility] Comment on above: Result Comment: Elec tronically Signed By: MARQUIS LOUISE MD\.br\Date and Time Signed: 08/08/24 11:05 EDT\.br\Electronically Co-Signed By: Roxy Gatica\.br\Date and Time Co-Signed: 08/08/24 10:46 EDT\.br\Electronically Co-Signed By: Roxy Gatica\.br\Date and Time Co-Signed: 08/08/24 10:53 EDT Office Visiton 07-05-2024 Follow-up visit [id number] KiritNadir Joy 1940 M Date Provider Department Center 07/05/2024 RUTHIE OWEN [facility] Comprehensiv Family History Problem Relation Age of Onset Coronary artery disease Father Family Status - Relation Status Age at Father Level of Service:56839 AR OFFICE/OUTPATIENT ESTABLISHED MOD MDM 30 MIN Reason for Visit and Comments: Follow-up [[id number]] [facility] 06-20-2024 36 Regarding echo resul t from [...] her he should have another echo at [facility] in Oct 2024, prior to his follow up with Dr. Cisneros in Nov 2024. She verbalized understanding. Echo order faxed to [facility]. [facility] 06-14-2024 36 Patients called and stating that dr. Linda told her to call and let him know that her husbands blood pressure is better and she would like a call back. [facility] 06-09-2024 36 Spoke with patient's Kervin and made sure she understood to increase labetalol per Dr. Linda. She also understands not to resume hydralazine. [facility] 06-07-2024 36 I'm Stephanie from Dr. Cisneros's office with Cardiology. Patient's daughter called and wanted to know if Dr. Linda had restarted patient's hydralazine- NOT hydroxyzine. I don't see in the note that it was restarted. Dr. Linda, or someone from his office- can you clarify this for me? Thanks so much. [facility] Follow-Upon 06-07-2024 Follow-Up [id number] Nadir Beth 1940 M Date Provider Department Center 06/07/2024 Salvador-RUTHIE LINDA [facility] Comprehensiv Family History Problem Relation Age of Onset Coronary artery disease Father Family Status - Relation Status Age at Father Level of Service:95844 AR OFFICE/OUTPATIENT ESTABLISHED MOD MDM 30 MIN () Reason for Visit and Comments: Follow-up [[id number]] [facility] Telephoneon 06-07-2024 Telephone [id number] Nadir Beth 1940 M Date Provider Department Center 06/07/2024 Francisco-IRIS GUADALUPE [facility] Comprehensiv Family History Problem Relation Age of Onset Coronary artery disease Father Family Status - Relation Status Age at Father [facility] Office Visiton 06-05-2024 Follow-up visit [id number] Nadir Beth 1940 M Date Provider Department Center 06/05/2024 367-CLARIBEL CISNEROS MILKA Dominguez [facility] Family History Problem Relation Age of Onset Coronary artery disease Father Family Status - Relation Status Age at Father Level of Service:13148 AR OFFICE/OUTPATIENT ESTABLISHED MOD MDM 30 MIN [facility] 36on 05-17-2024 36 Faxed lab orders 05/17/24 [facility] 36on 05-15-2024 36 Patient states that he needs his blood work to go to [facility] before his appointment on 05/31/24. [facility] 36on 05-10-2024 36 LM on for patient or his to return my call. [facility] 36on 05-08-2024 36 Patient's bucio d with concerns of elevated BP since hydralazine was stopped at last apt. She said sometimes it's very good - 110/60's and sometimes 152/70. He's scheduled to see you in a few weeks. Did you want to change anything? Please advise. Thanks. [facility] 3604-04-2024 36 Regarding blood work from 04/03/2024: MD Stephanie Kelley MA Stable renal function. Continue same treatment and follow-up as planned. Patient's made aware. [facility] Orders Onlyon 03-21-2024 Orders Only [id number] Nadir Beth 1940 M Date Provider Department Center 03/21/2024 [id number]-LUCRETIA MURPHY CARD [facility] Family History Problem Relation Age of Onset Coronary artery disease Father Family Status - Relation Status Age at Father Normal [facility] Office Visiton 03-03-2024 Follow-up visit [id number] Nadir Beth Joy 1940 M Date Provider Department Center 03/03/2024 SrideviGONZÁLEZANJUMCLARIBEL DINH [facility] Family History Problem Relation Age of Onset Coronary artery disease Father Family Status - Relation Status Age at Father Level of Service:35759 AR OFFICE/OUTPATIENT ESTABLISHED MOD MDM 30 MIN Reason for Visit and Comments: Follow-up [694552] Normal [facility] MICRO OTHER TESTSOrdered By: Francisco Bolanos [...] 6.7 E9/L Normal 4.0 - 11.0 E9/L [facility] HemeAutoSS ALBUMINon 03-24-2023 Albumin [Mass/Vol] 3.3 g/dL Critically low 3.4-5.0 Th e [facility] Comment on above: Performed By: #### M ERICK Faith PHOS #### [facility] [address] [place] [address] Dr. David Magana GLYCOHEMOGLOBIN A1Con 2022 ADA RECOMMENDATION SEE BELOW Normal [facility] Comment on above: Result Comment: ADA RECOMMENDED LIMIT 4.0 - 6.0 ADA THERAPEUTIC TARGET < 7.0 ACTION SUGGESTED > 7.0 Performed By: #### A 1C #### [facility] [address] [place] [address] Dr. David Magana Glucose [Mass/Vol] 108 mg/dL Normal [facility] Comment on above: Performed By: #### A 1C #### [facility] [address] [place] [address] Dr. David Magana HbA1c (Bld) [Mass fraction] 5.4 % Normal 4.5-6.2 [facility] Comment on above: Performed By: #### A 1C #### [facility] [address] [place] [address] Dr. David Magana PHOSPHORUSon 03-24-2023 Phosphate [Mass/Vol] 3.6 mg/dL Normal 2.6-4.7 [facility] Comment on above: Performed By: #### M ERICK Faith, PHOS #### [facility] [address] [place] [address] Dr. David Magana PROF CHEM 8 (BAS METB)on Anion gap [Moles/Vol] 11.6 mmol/L Normal [facility] Comment on above: Performed By: #### M ERICK Faith, PHOS #### [facility] [address] [place] [address] Dr. David Magana Calcium [Mass/Vol] 8.9 mg/dL Normal 8.5-10.1 [facility] Comment on above: Performed By: #### Jim Faith BMP, PHOS #### [facility] [address] [place] [address] Dr. David Magana Chloride [Moles/Vol] 107 mmol/L Normal 98-107 [facility] Comment on above: Performed By: #### M ERICK Faith, PHOS #### [facility] [address] [place] [address] Dr. David Magana CO2 [Moles/Vol] 30.8 mmol/L Normal 21.0-32.0 [facility] Comment on above: Performed By: #### M ERICK Faith, PHOS #### [facility] [address] [address] [address] David Magana Creatinine [Mass/Vol] 1.67 mg/dL Critically high 0.70-1.30 [facility] Comment on above: Performed By: #### M G, BMP, PHOS #### [facility] [address] [address] [address] David Magana EGFR-AF SOUTH AFRICAN 48 mL/min/1.73m2 Critically low >=60 [facility] Comment on above: Performed By: #### M G, BMP, PHOS #### [facility] [address] [address] [address] David Magana EGFR-NON AF SOUTH AFRICAN 39 mL/min/1.73m2 Critically low >=60 [facility] Comment on above: Performed By: #### M G, BMP, PHOS #### [facility] [address] [place] [address] Dr. David Magana Glucose [Mass/Vol] 128 mg/dL Critically high 74-106 T [facility] Comment on above: Performed By: #### M Marcell, BMP, PHOS #### [facility] [address] [address] [address] David Magana Potassium [Moles/Vol] 4.4 mmol/L Normal 3.5-5.1 [facility] Comment on above: Performed By: #### M Marcell, BMP, PHOS #### [facility] [address] [place] [address] Dr. David Magana Sodium [Moles/Vol] 145 mmol/L Normal 136-145 [facility] Comment on above: Performed By: #### M G, BMP, PHOS #### [facility] [address] [address] [address] David Magana Urea nitrogen [Mass/Vol] 25.0 mg/dL Critically high 7.0-18.0 [facility] Comment on above: Performed By: #### M G, BMP, PHOS #### [facility] [address] [address] [address] David Magana Urea nitrogen/Creatinine [Mass ratio] 15.0 mg/mg Normal [facility] Comment on above: Performed By: #### M ERICK Faith, PHOS #### [facility] [address] [place] [address] Dr. David Magana VITAMIN D 25 OHon 03-24-2023 VIT D 25-OH 11.6 ng/mL Normal [facility] Comment on above: Performed By: #### C BC #### [facility] [address] [place] [address] Dr. David Magana VIT D RANGES SEE BELOW Normal [facility] Comment on above: Result Comment: <20 ng/mL Vit D deficient 20 - <30 ng/mL Vit D insufficient 30 - 100 ng/mL Vit D sufficient >100 ng/mL Potential Toxicity Performed By: #### C BC #### [facility] [address] [place] [address] Dr. David Magana CBC AUTO DIFFon 02-27-2023 BASO # 0.0 103/ul Normal 0.0-0.1 [facility] Comment on above: Performed By: #### M ERICK Faith, PHOS #### [facility] [address] [place] [address] Dr. David Magana Basophils/100 WBC (Bld) 0.5 % Normal 0.2-2.0 [facility] Comment on above: Performed By: #### ERICK Jacques, PHOS #### [facility] [address] [place] [address] Dr. David Magana EO # 0.7 103/ul Normal 0.0-0.7 [facility] Comment on above: Performed By: #### M ERICK Faith, PHOS #### [facility] [address] [place] [address] Dr. David Magana Eosinophils/100 WBC (Bld) 9.3 % Critically high 0.9-7.0 [facility] Comment on above: Performed By: #### M ERICK Faith, PHOS #### [facility] [address] [place] [address] Dr. David Magana Erythrocyte distribution width (RBC) [Ratio] 14.6 % Normal 11.0-15.0 [facility] Comment on above: Performed By: #### M ERICK Faith, PHOS #### [facility] [address] [place] [address] Dr. David Magana Hematocrit (Bld) [Volume fraction] 41.5 % Critically low 42.0-54.0 [facility] Comment on above: Performed By: #### M ERICK Faith, PHOS #### [facility] [address] [place] [address] Dr. David Magana Hemoglobin (Bld) [Mass/Vol] 13.9 g/dL Critically low 14.0-18.0 [facility] Comment on above: Performed By: #### M ERICK Faith, PHOS #### [facility] [address] [place] [address] Dr. David Magana IG # 0.02 10e3/ul Normal 0.00-0.03 [facility] Comment on above: Performed By: #### ERICK Jacques, PHOS #### [facility] [address] [place] [address] Dr. David Magana IG % 0.3 % Normal 0.0-0.5 [facility] Comment on above: Performed By: #### M ERICK Faith, PHOS #### [facility] [address] [place] [address] Dr. David Magana LYMPH # 1.0 103/ul Critically low 1.2-3.8 [facility] Comment on above: Performed By: #### ERICK Jacques, PHOS #### [facility] [address] [place] [address] Dr. David Magana Lymphocytes/100 WBC (Bld) 13.0 % Critically low 20.5-60.0 [facility] Comment on above: Performed By: #### M ERICK Faith, PHOS #### [facility] [address] [place] [address] Dr. David Magana MANUAL DIFF REQ NO Normal [facility] Comment on above: Performed By: #### ERICK Jacques, PHOS #### [facility] [address] [place] [address] Dr. David Magana MCH (RBC) [Entitic mass] 33.5 pg Normal 25.9-34.0 [facility] Comment on above: Performed By: #### M ERICK Faith, PHOS #### [facility] [address] [place] [address] Dr. David Magana MCHC (RBC) [Mass/Vol] 33.5 g/dL Normal 29.9-35.2 [facility] Comment on above: Performed By: #### M ERICK Faith, PHOS #### [facility] [address] [place] [address] Dr. David Magnaa MCV (RBC) [Entitic vol] 100.0 fL Critically high 80.0-94.0 [facility] Comment on above: Performed By: #### M ERICK Faith, PHOS #### [facility] [address] [place] [address] Dr. David Magana MONO # 0.8 103/ul Normal 0.3-0.8 [facility] Comment on above: Performed By: #### ERICK Jacques, PHOS #### [facility] [address] [place] [address] Dr. David Magana Monocytes/100 WBC (Bld) 10.1 % Normal 1.7-12.0 [facility] Comment on above: Performed By: #### M ERICK Faith, PHOS #### [facility] [address] [place] [address] Dr. David Magana NEUT # 5.0 103/ul Normal 1.4-6.5 [facility] Comment on above: Performed By: #### M ERICK Faith, PHOS #### [facility] [address] [place] [address] Dr. David Magana Neutrophils/100 WBC (Bld) 66.8 % Normal 43.0-75.0 [facility] Comment on above: Performed By: #### M ERICK Faith, PHOS #### [facility] [address] [place] [address] Dr. David Magana Platelet mean volume (Bld) [Entitic vol] 11.2 fL Normal 9.5-13.5 [facility] Comment on above: Performed By: #### M ERICK Faith, PHOS #### [facility] [address] [place] [address] Dr. David Magana PLT 187 103/ul Normal 150-450 [facility] Comment on above: Performed By: #### M ERICK Faith, PHOS #### [facility] [address] [place] [address] Dr. aDvid Magana RBC 4.15 106/ul Critically low 4.70-6.10 [facility] Comment on above: Performed By: #### M ERICK Faith, PHOS #### [facility] [address] [place] [address] Dr. David Magana WBC 7.5 103/ul Normal 4.0-11.0 [facility] Comment on above: Performed By: #### ERICK Jacques, PHOS #### [facility] [address] [place] [address] Dr. David Maagna PROF 14(COMP METB)on 023 Albumin [Mass/Vol] 3.5 g/dL Normal 3.4-5.0 [facility] Comment on above: Performed By: #### A 1C #### [facility] [address] [place] [address] Dr. David Magana Albumin/Globulin [Mass ratio] 1.1 {ratio} Normal [facility] Comment on above: Performed By: #### A 1C #### [facility] [address] [place] [address] Dr. David Magana ALP [Catalytic activity/Vol] 76 U/L Normal 46-116 [facility] Comment on above: Performed By: #### A 1C #### [facility] [address] [place] [address] Dr. David Magana ALT [Catalytic activity/Vol] 23 U/L Normal 16-63 [facility] Comment on above: Performed By: #### A 1C #### [facility] [address] [place] [address] Dr. David Magana Anion gap [Moles/Vol] 13.1 mmol/L Normal [facility] Comment on above: Performed By: #### A 1C #### [facility] [address] [address] [address] David Magana AST [Catalytic activity/Vol] 17 U/L Normal 15-37 [facility] Comment on above: Performed By: #### A 1C #### [facility] [address] [address] [address] David Magana Bilirubin [Mass/Vol] 0.7 mg/dL Normal 0.2-1.0 [facility] Comment on above: Performed By: #### A 1C #### [facility] [address] [address] [address] David Magana Calcium [Mass/Vol] 9.0 mg/dL Normal 8.5-10.1 [facility] Comment on above: Performed By: #### A 1C #### [facility] [address] [address] [address] David Magana Chloride [Moles/Vol] 105 mmol/L Normal 98-107 [facility] Comment on above: Performed By: #### A 1C #### [facility] [address] [address] [address] David Magana CO2 [Moles/Vol] 29.0 mmol/L Normal 21.0-32.0 [facility] Comment on above: Performed By: #### A 1C #### [facility] [address] [address] [address] David Magana Creatinine [Mass/Vol] 1.77 mg/dL Critically high 0.70-1.30 [facility] Comment on above: Performed By: #### A 1C #### [facility] [address] [address] [address] David Magana EGFR-AF SOUTH AFRICAN 45 mL/min/1.73m2 Critically low >=60 [facility] Comment on above: Performed By: #### A 1C #### [facility] [address] [address] [address] David Magana EGFR-NON AF S[place]TH AFR[place] 37 mL/min/1.73m2 Critically low >=60 [facility] Comment on above: Performed By: #### A 1C #### [facility] [address] [address] [address] David Magana Globulin (S) [Mass/Vol] 3.3 g/dL Normal [facility] Comment on above: Performed By: #### A 1C #### [facility] [address] [address] [address] David Magana Glucose [Mass/Vol] 135 mg/dL Critically high 74-106 [facility] Comment on above: Performed By: #### A 1C #### [facility] [address] [address] [address] David Magana Potassium [Moles/Vol] 4.1 mmol/L Normal 3.5-5.1 [facility] Comment on above: Performed By: #### A 1C #### [facility] [address] [place] [address] Dr. David Magana Protein [Mass/Vol] 6.8 g/dL Normal 6.4-8.2 [facility] Comment on above: Performed By: #### A 1C #### [facility] [address] [place] [address] Dr. David Magana Sodium [Moles/Vol] 143 mmol/L Normal 136-145 [facility] Comment on above: Performed By: #### A 1C #### [facility] [address] [place] [address] Dr. David Magana Urea nitrogen [Mass/Vol] 31.0 mg/dL Critically high 7.0-18.0 [facility] Comment on above: Performed By: #### A 1C #### [facility] [address] [place] [address] Dr. David Magana Urea nitrogen/Creatinine [Mass ratio] 17.5 mg/mg Normal [facility] Comment on above: Performed By: #### A 1C #### [facility] [address] [place] [address] Dr. David Magana PROTIMEon 02-27-2023 INR Coag (PPP) [Relative time] 0.99 {INR} Normal [facility] Comment on above: Performed By: #### A 1C #### [facility] [address] [place] [address] Dr. David Magana INR GUIDELINES SEE BELOW Normal [facility] Comment on above: Result Comment: IDANIA RED INR: 2.0 - 3.0 CONDITIONS NOT LISTED BELOW 2.5 - 3.5 FOR PROSTHETIC HEART VALVE REPLACEMENT 2.5 - 3.5 RECURRENT THROMBOSIS Performed By: #### A 1C #### [facility] [address] [place] [address] Dr. David Magana PT Coag (PPP) [Time] 10.5 s Normal 9.0-11.6 [facility] Comment on above: Performed By: #### A 1C #### [facility] [address] [place] [address] Dr. David Magana PTTon 02-27-2023 aPTT Coag (Bld) [Time] 33.0 s Normal 22.3-36.2 [facility] Comment on above: Performed By: #### P OCGLUC #### [facility] [address] [place] [address] Dr. David Magana ALBUMINon 12-28-2022 Albumin [Mass/Vol] 3.6 g/dL Normal 3.4-5.[address] [facility] Comment on above: Performed By: #### C BC #### [facility] [address] [place] [address] Dr. David Magana GLYCOHEMOGLOBIN A1Con 2022 ADA RECOMMENDATION SEE BELOW Normal [facility] Comment on above: Result Comment: ADA RECOMMENDED LIMIT 4.0 - 6.0 ADA THERAPEUTIC TARGET < 7.0 ACTION SUGGESTED > 7.0 Performed By: #### P OCGLUC #### [facility] [address] [place] [address] Dr. David Magana Glucose [Mass/Vol] 140 mg/dL Normal [facility] Comment on above: Performed By: #### P OCGLUC #### [facility] [address] [place] [address] Dr. David Magana HbA1c (Bld) [Mass fraction] 6.5 % Critically high 4.5-6.2 [facility] Comment on above: Performed By: #### P OCGLUC #### [facility] [address] [address] [address] David Magana MAGNESIUMon 12-28-2022 Magnesium [Mass/Vol] 2.3 mg/dL Normal 1.8-2.4 [facility] Comment on above: Performed By: #### P OCGLUC #### [facility] [address] [place] [address] Dr. David Magana PROF CHEM 8 (BAS METB)on Anion gap [Moles/Vol] 13.2 mmol/L Normal [facility] Comment on above: Performed By: #### P OCGLUC #### [facility] [address] [place] [address] Dr. David Magana Calcium [Mass/Vol] 9.0 mg/dL Normal 8.5-10.1 [facility] Comment on above: Performed By: #### P OCGLUC #### [facility] [address] [place] [address] Dr. David Magana Chloride [Moles/Vol] 105 mmol/L Normal 98-107 [facility] Comment on above: Performed By: #### P OCGLUC #### [facility] [address] [place] [address] Dr. David Magana CO2 [Moles/Vol] 28.9 mmol/L Normal 21.0-32.0 [facility] Comment on above: Performed By: #### P OCGLUC #### [facility] [address] [place] [address] Dr. David Magana Creatinine [Mass/Vol] 1.66 mg/dL Critically high 0.70-1.30 [facility] Comment on above: Performed By: #### P OCGLUC #### [facility] [address] [place] [address] Dr. David Magana EGFR-AF S[place]TH [place]FR[place] 48 mL/min/1.73m2 Critically low >=60 [facility] Comment on above: Performed By: #### P OCGLUC #### [facility] [address] [place] [address] Dr. David Magana EGFR-NON AF [place]FR[place] 40 mL/min/1.73m2 Critically low >=60 [facility] Comment on above: Performed By: #### P OCGLUC #### [facility] [address] [address] [address] David Magana Glucose [Mass/Vol] 123 mg/dL Critically high 74-106 T [facility] Comment on above: Performed By: #### P OCGLUC #### [facility] [address] [address] [address] David Magana Potassium [Moles/Vol] 4.1 mmol/L Normal 3.5-5.1 [facility] Comment on above: Performed By: #### P OCGLUC #### [facility] [address] [address] [address] David Magana Sodium [Moles/Vol] 143 mmol/L Normal 136-145 [facility] Comment on above: Performed By: #### P OCGLUC #### [facility] [address] [address] [address] David Magana Urea nitrogen [Mass/Vol] 29.0 mg/dL Critically high 7.0-18.0 [facility] Comment on above: Performed By: #### P OCGLUC #### [facility] [address] [address] [address] David Magana Urea nitrogen/Creatinine [Mass ratio] 17.5 mg/mg Normal [facility] Comment on above: Performed By: #### P OCGLUC #### [facility] [address] [address] [address] David Magana URINE T PROTEIN CREAT RATIOo n 12-28-2022 UR TOTAL PROTEIN <6.0 Normal <=12.0 [facility] Comment on above: Performed By: #### ERICK Jacques PHOS #### [facility] [address] [address] [address] David Magana URINE CREAT 41.21 mg/dL Normal 20.00-300.00 [facility] Comment on above: Performed By: #### ERICK Jacques PHOS #### [facility] [address] [place] [address] Dr. David Magana ALBUMINon 11-16-2022 Albumin [Mass/Vol] 3.3 g/dL Critically low 3.4-5.0 [facility] Comment on above: Performed By: #### C BC #### [facility] [address] [place] [address] Dr. David Magana CREATININE URINEon URINE CREAT 19.69 mg/dL Critically low 20.00-300.00 [facility] Comment on above: Performed By: #### M ERICK Faith, PHOS #### [facility] [address] [place] [address] Dr. David Magana HEMOGLOBINon 11-16-2022 Hemoglobin (Bld) [Mass/Vol] 14.9 g/dL Normal 14.0-18.0 [facility] Comment on above: Performed By: #### ERICK Jacques, PHOS #### [facility] [address] [place] [address] Dr. David Magana MAGNESIUMon 11-16-2022 Magnesium [Mass/Vol] 2.2 mg/dL Normal 1.8-2.4 [facility] Comment on above: Performed By: #### C BC #### [facility] [address] [place] [address] Dr. David Magana PHOSPHORUSon 11-16-2022 Phosphate [Mass/Vol] 3.9 mg/dL Normal 2.6-4.7 [facility] Comment on above: Performed By: #### C BC #### [facility] [address] [place] [address] Dr. David Magana PROF CHEM 8 (BAS METB)on Anion gap [Moles/Vol] 11.9 mmol/L Normal [facility] Comment on above: Performed By: #### C BC #### [facility] [address] [place] [address] Dr. David Magana Calcium [Mass/Vol] 8.8 mg/dL Normal 8.5-10.1 [facility] Comment on above: Performed By: #### C BC #### [facility] [address] [address] [address] David Magana Chloride [Moles/Vol] 104 mmol/L Normal 98-107 [facility] Comment on above: Performed By: #### C BC #### [facility] [address] [address] [address] David Magana CO2 [Moles/Vol] 27.4 mmol/L Normal 21.0-32.0 [facility] Comment on above: Performed By: #### C BC #### [facility] [address] [address] [address] David Magana Creatinine [Mass/Vol] 1.68 mg/dL Critically high 0.70-1.30 [facility] Comment on above: Performed By: #### C BC #### [facility] [address] [address] [address] David Magana EGFR-AF SOUTH [place]FR[place] 48 mL/min/1.73m2 Critically low >=60 [facility] Comment on above: Performed By: #### C BC #### [facility] [address] [address] [address] David Magana EGFR-NON AF [place] 39 mL/min/1.73m2 Critically low >=60 [facility] Comment on above: Performed By: #### C BC #### [facility] [address] [address] [address] David Magana Glucose [Mass/Vol] 212 mg/dL Critically high 74-106 [facility] Comment on above: Performed By: #### C BC #### [facility] Laboratory [address] [address] [address] David Magana Potassium [Moles/Vol] 4.3 mmol/L Normal 3.5-5.1 [facility] Comment on above: Performed By: #### C BC #### [facility] [address] [address] [address] David Magana Sodium [Moles/Vol] 139 mmol/L Normal 136-145 [facility] Comment on above: Performed By: #### C BC #### [facility] [address] [place] [address] Dr. David Magana Urea nitrogen [Mass/Vol] 25.0 mg/dL Critically high 7.0-18.0 [facility] Comment on above: Performed By: #### C BC #### [facility] [address] [place] [address] Dr. David Magana Urea nitrogen/Creatinine [Mass ratio] 14.9 mg/mg Normal [facility] Comment on above: Performed By: #### C BC #### [facility] [address] [place] [address] Dr. David Magana PROTEIN RAND URINEon 023 UR PROT <5.0 Normal <=11.9 [facility] Comment on above: Performed By: #### ERICK Jacques PHOS #### [facility] [address] [place] [address] Dr. David Magana US CHANI DOP LEG [...] PEREZ Date: 2022-11-02 16:21 Normal [facility] BNPon 07-22-2022 Natriuretic peptide B (Bld) [Mass/Vol] 2143.0 pg/mL Critically high <=1,800.0 [facility] Comment on above: Performed By: #### ERICK Jacques, PHOS #### [facility] [address] [place] [address] Dr. David Magana CBC AUTO DIFFon 07-22-2022 BASO # 0.0 103/ul Normal 0.0-0.1 [facility] Comment on above: Performed By: #### A 1C #### [facility] [address] [place] [address] Dr. David Magana Basophils/100 WBC (Bld) 0.3 % Normal 0.2-2.0 [facility] Comment on above: Performed By: #### A 1C #### [facility] [address] [place] [address] Dr. David Magana EO # 0.3 103/ul Normal 0.0-0.7 [facility] Comment on above: Performed By: #### A 1C #### [facility] [address] [place] [address] Dr. David Magana Eosinophils/100 WBC (Bld) 2.4 % Normal 0.9-7.0 [facility] Comment on above: Performed By: #### A 1C #### [facility] [address] [place] [address] Dr. David Magana Erythrocyte distribution width (RBC) [Ratio] 13.4 % Normal 11.0-15.0 [facility] Comment on above: Performed By: #### A 1C #### [facility] [address] [place] [address] Dr. David Magana Hematocrit (Bld) [Volume fraction] 42.7 % Normal 42.0-54.0 [facility] Comment on above: Performed By: #### A 1C #### [facility] [address] [place] [address] Dr. David Magana Hemoglobin (Bld) [Mass/Vol] 14.2 g/dL Normal 14.0-18.0 [facility] Comment on above: Performed By: #### A 1C #### [facility] [address] [place] [address] Dr. David Magana IG # 0.18 10e3/ul Critically high 0.00-0.03 [facility] Comment on above: Performed By: #### A 1C #### [facility] [address] [place] [address] Dr. David Magana IG % 1.6 % Critically high 0.0-0.5 [facility] Comment on above: Performed By: #### A 1C #### [facility] [address] [place] [address] Dr. David Magana LYMPH # 0.9 103/ul Critically low 1.2-3.8 [facility] Comment on above: Performed By: #### A 1C #### [facility] [address] [place] [address] Dr. David Magana Lymphocytes/100 WBC (Bld) 8.1 % Critically low 20.5-60.0 [facility] Comment on above: Performed By: #### A 1C #### [facility] [address] [place] [address] Dr. David Magana MANUAL DIFF REQ NO Normal [facility] Comment on above: Performed By: #### A 1C #### [facility] [address] [place] [address] Dr. David Magana MCH (RBC) [Entitic mass] 33.3 pg Normal 25.9-34.0 [facility] Comment on above: Performed By: #### A 1C #### [facility] [address] [place] [address] Dr. David Magana MCHC (RBC) [Mass/Vol] 33.3 g/dL Normal 29.9-35.2 [facility] Comment on above: Performed By: #### A 1C #### [facility] [address] [place] [address] Dr. David Magana MCV (RBC) [Entitic vol] 100.2 fL Critically high 80.0-94.0 [facility] Comment on above: Performed By: #### A 1C #### [facility] [address] [place] [address] Dr. David Magana MONO # 1.2 103/ul Critically high 0.3-0.8 [facility] Comment on above: Performed By: #### A 1C #### [facility] [address] [place] [address] Dr. David Magana Monocytes/100 WBC (Bld) 10.5 % Normal 1.7-12.0 [facility] Comment on above: Performed By: #### A 1C #### [facility] [address] [place] [address] Dr. David Magana NEUT # 8.9 103/ul Critically high 1.4-6.5 [facility] Comment on above: Performed By: #### A 1C #### [facility] [address] [place] [address] Dr. David Magana Neutrophils/100 WBC (Bld) 77.1 % Critically high 43.0-75.0 [facility] Comment on above: Performed By: #### A 1C #### [facility] [address] [place] [address] Dr. David Magana Platelet mean volume (Bld) [Entitic vol] 11.3 fL Normal 9.5-13.5 [facility] Comment on above: Performed By: #### A 1C #### [facility] [address] [place] [address] Dr. David Magana PLT 175 103/ul Normal 150-450 [facility] Comment on above: Performed By: #### A 1C #### [facility] [address] [place] [address] Dr. David Magana RBC 4.26 106/ul Critically low 4.70-6.10 [facility] Comment on above: Performed By: #### A 1C #### [facility] [address] [place] [address] Dr. David Magana WBC 11.5 103/ul Critically high 4.0-11.0 [facility] Comment on above: Performed By: #### A 1C #### [facility] [address] [place] [address] Dr. David Magana PROF 14(COMP METB)on 022 Albumin [Mass/Vol] 2.6 g/dL Critically low 3.4-5.0 [facility] Comment on above: Performed By: #### ERICK Jacques PHOS #### [facility] [address] [place] [address] Dr. David Magana Albumin/Globulin [Mass ratio] 0.9 {ratio} Normal [facility] Comment on above: Performed By: #### ERICK Jacques PHOS #### [facility] [address] [place] [address] Dr. David Magana ALP [Catalytic activity/Vol] 49 U/L Normal 46-116 [facility] Comment on above: Performed By: #### ERICK Jacques, PHOS #### [facility] [address] [address] [address] David Magana ALT [Catalytic activity/Vol] 25 U/L Normal 16-63 [facility] Comment on above: Performed By: #### ERICK Jacques, PHOS #### [facility] [address] [address] [address] David Magana Anion gap [Moles/Vol] 12.8 mmol/L Normal [facility] Comment on above: Performed By: #### ERICK Jacques, PHOS #### [facility] [address] [place] [address] Dr. David Magana AST [Catalytic activity/Vol] 9 U/L Critically low 15-37 [facility] Comment on above: Performed By: #### ERICK Jacques, PHOS #### [facility] [address] [place] [address] Dr. David Magana Bilirubin [Mass/Vol] 0.5 mg/dL Normal 0.2-1.0 [facility] Comment on above: Performed By: #### ERICK Jacques, PHOS #### [facility] [address] [place] [address] Dr. David Magana Calcium [Mass/Vol] 8.3 mg/dL Critically low 8.5-10.1 [facility] Comment on above: Performed By: #### ERICK Jacques, PHOS #### [facility] [address] [place] [address] Dr. David Magana Chloride [Moles/Vol] 105 mmol/L Normal 98-107 [facility] Comment on above: Performed By: #### ERICK Jacques, PHOS #### [facility] [address] [place] [address] Dr. David Magana CO2 [Moles/Vol] 24.2 mmol/L Normal 21.0-32.0 [facility] Comment on above: Performed By: #### ERICK Jacques, PHOS #### [facility] [address] [address] [address] David Magana Creatinine [Mass/Vol] 1.28 mg/dL Normal 0.70-1.30 [facility] Comment on above: Performed By: #### M G, BMP, PHOS #### [facility] [address] [address] [address] David Magana EGFR-AF SOUTH AFRICAN >60 Normal >=60 [facility] Comment on above: Performed By: #### M G, BMP, PHOS #### [facility] [address] [address] [address] David Magana EGFR-NON AF SOUTH AFRICAN 54 mL/min/1.73m2 Critically low >=60 [facility] Comment on above: Performed By: #### M G, BMP, PHOS #### [facility] [address] [place] [address] Dr. David Magana Globulin (S) [Mass/Vol] 2.9 g/dL Normal [facility] Comment on above: Performed By: #### M G, BMP, PHOS #### [facility] [address] [address] [address] David Magana Glucose [Mass/Vol] 205 mg/dL Critically high 74-106 [facility] Comment on above: Performed By: #### M G, BMP, PHOS #### [facility] [address] [address] [address] David Magana Potassium [Moles/Vol] 4.0 mmol/L Normal 3.5-5.1 [facility] Comment on above: Performed By: #### M G, BMP, PHOS #### [facility] [address] [address] [address] David Magana Protein [Mass/Vol] 5.5 g/dL Critically low 6.4-8.2 [facility] Comment on above: Performed By: #### M G, BMP, PHOS #### [facility] [address] [address] [address] David Magana Sodium [Moles/Vol] 138 mmol/L Normal 136-145 [facility] Comment on above: Performed By: #### ERICK Jacques PHOS #### [facility] [address] [place] [address] Dr. David Magana Urea nitrogen [Mass/Vol] 36.0 mg/dL Critically high 7.0-18.0 [facility] Comment on above: Performed By: #### ERICK Jacques PHOS #### [facility] [address] [place] [address] Dr. David Magana Urea nitrogen/Creatinine [Mass ratio] 28.1 mg/mg Normal [facility] Comment on above: Performed By: #### ERICK Jacques PHOS #### [facility] [address] [place] [address] Dr. David Magana BNPon 07-21-2022 Natriuretic peptide B (Bld) [Mass/Vol] 3485.0 pg/mL Critically high <=1,800.0 [facility] Comment on above: Result Comment: repe ated Performed By: #### A 1C #### [facility] [address] [place] [address] Dr. David Magana CBC AUTO DIFFon 07-21-2022 BASO # 0.0 103/ul Normal 0.0-0.1 [facility] Comment on above: Performed By: #### C BC #### [facility] [address] [place] [address] Dr. David Magana Basophils/100 WBC (Bld) 0.3 % Normal 0.2-2.0 [facility] Comment on above: Performed By: #### C BC #### [facility] [address] [place] [address] Dr. David Magana EO # 0.2 103/ul Normal 0.0-0.7 [facility] Comment on above: Performed By: #### C BC #### [facility] [address] [place] [address] Dr. David Magana Eosinophils/100 WBC (Bld) 1.9 % Normal 0.9-7.0 [facility] Comment on above: Performed By: #### C BC #### [facility] [address] [place] [address] Dr. David Magana Erythrocyte distribution width (RBC) [Ratio] 13.4 % Normal 11.0-15.0 [facility] Comment on above: Performed By: #### C BC #### [facility] [address] [place] [address] Dr. David Magana Hematocrit (Bld) [Volume fraction] 42.5 % Normal 42.0-54.0 [facility] Comment on above: Performed By: #### C BC #### [facility] [address] [place] [address] Dr. David Magana Hemoglobin (Bld) [Mass/Vol] 14.2 g/dL Normal 14.0-18.0 [facility] Comment on above: Performed By: #### C BC #### [facility] [address] [place] [address] Dr. David Magana IG # 0.22 10e3/ul Critically high 0.00-0.03 [facility] Comment on above: Performed By: #### C BC #### [facility] [address] [place] [address] Dr. David Magana IG % 2.1 % Critically high 0.0-0.5 [facility] Comment on above: Performed By: #### C BC #### [facility] [address] [place] [address] Dr. David Magana LYMPH # 0.8 103/ul Critically low 1.2-3.8 [facility] Comment on above: Performed By: #### C BC #### [facility] [address] [place] [address] Dr. David Magana Lymphocytes/100 WBC (Bld) 7.7 % Critically low 20.5-60.0 [facility] Comment on above: Performed By: #### C BC #### [facility] [address] [place] [address] Dr. David Magana MANUAL DIFF REQ NO Normal [facility] Comment on above: Performed By: #### C BC #### [facility] [address] [address] [address] David Magana MCH (RBC) [Entitic mass] 33.0 pg Normal 25.9-34.0 [facility] Comment on above: Performed By: #### C BC #### [facility] [address] [place] [address] Dr. David Magana MCHC (RBC) [Mass/Vol] 33.4 g/dL Normal 29.9-35.2 [facility] Comment on above: Performed By: #### C BC #### [facility] [address] [place] [address] Dr. David Magana MCV (RBC) [Entitic vol] 98.8 fL Critically high 80.0-94.0 [facility] Comment on above: Performed By: #### C BC #### [facility] [address] [place] [address] Dr. David Magana MONO # 1.0 103/ul Critically high 0.3-0.8 [facility] Comment on above: Performed By: #### C BC #### [facility] [address] [place] [address] Dr. David Magana Monocytes/100 WBC (Bld) 9.7 % Normal 1.7-12.0 [facility] Comment on above: Performed By: #### C BC #### [facility] [address] [place] [address] Dr. David Magana NEUT # 8.1 103/ul Critically high 1.4-6.5 [facility] Comment on above: Performed By: #### C BC #### [facility] [address] [place] [address] Dr. David Magana Neutrophils/100 WBC (Bld) 78.3 % Critically high 43.0-75.0 [facility] Comment on above: Performed By: #### C BC #### [facility] [address] [place] [address] Dr. David Magana Platelet mean volume (Bld) [Entitic vol] 10.7 fL Normal 9.5-13.5 [facility] Comment on above: Performed By: #### C BC #### [facility] [address] [place] [address] Dr. David Magana PLT 177 103/ul Normal 150-450 [facility] Comment on above: Performed By: #### C BC #### [facility] [address] [place] [address] Dr. David Magana RBC 4.30 106/ul Critically low 4.70-6.10 [facility] Comment on above: Performed By: #### C BC #### [facility] [address] [place] [address] Dr. David Magana WBC 10.4 103/ul Normal 4.0-11.0 [facility] Comment on above: Performed By: #### C BC #### [facility] [address] [place] [address] Dr. David Magana PROF 14(COMP METB)on 022 Albumin [Mass/Vol] 2.6 g/dL Critically low 3.4-5.0 [facility] Comment on above: Performed By: #### A 1C #### [facility] [address] [place] [address] Dr. David Magana Albumin/Globulin [Mass ratio] 1.0 {ratio} Normal [facility] Comment on above: Performed By: #### A 1C #### [facility] [address] [place] [address] Dr. David Magana ALP [Catalytic activity/Vol] 50 U/L Normal 46-116 [facility] Comment on above: Performed By: #### A 1C #### [facility] [address] [place] [address] Dr. David Magana ALT [Catalytic activity/Vol] 28 U/L Normal 16-63 [facility] Comment on above: Performed By: #### A 1C #### [facility] [address] [place] [address] Dr. David Magana Anion gap [Moles/Vol] 11.4 mmol/L Normal [facility] Comment on above: Performed By: #### A 1C #### [facility] [address] [address] [address] David Magana AST [Catalytic activity/Vol] 13 U/L Critically low 15-37 [facility] Comment on above: Performed By: #### A 1C #### [facility] [address] [place] [address] Dr. David Magana Bilirubin [Mass/Vol] 0.4 mg/dL Normal 0.2-1.0 [facility] Comment on above: Performed By: #### A 1C #### [facility] [address] [place] [address] Dr. David Magana Calcium [Mass/Vol] 8.4 mg/dL Critically low 8.5-10.1 [facility] Comment on above: Performed By: #### A 1C #### [facility] [address] [place] [address] Dr. David Magana Chloride [Moles/Vol] 107 mmol/L Normal 98-107 [facility] Comment on above: Performed By: #### A 1C #### [facility] [address] [place] [address] Dr. David Magana CO2 [Moles/Vol] 24.6 mmol/L Normal 21.0-32.0 [facility] Comment on above: Performed By: #### A 1C #### [facility] [address] [place] [address] Dr. David Magana Creatinine [Mass/Vol] 1.26 mg/dL Normal 0.70-1.30 [facility] Comment on above: Performed By: #### A 1C #### [facility] [address] [place] [address] Dr. David Magana EGFR-AF S[place]FR[place] >60 Normal >=60 [facility] Comment on above: Performed By: #### A 1C #### [facility] [address] [place] [address] Dr. David Magana EGFR-NON AF [place]FR[place] 55 mL/min/1.73m2 Critically low >=60 [facility] Comment on above: Performed By: #### A 1C #### [facility] [address] [place] [address] Dr. David Magana Globulin (S) [Mass/Vol] 2.7 g/dL Normal [facility] Comment on above: Performed By: #### A 1C #### [facility] [address] [place] [address] Dr. David Magana Glucose [Mass/Vol] 203 mg/dL Critically high 74-106 T [facility] Comment on above: Performed By: #### A 1C #### [facility] [address] [place] [address] Dr. David Magana Potassium [Moles/Vol] 4.0 mmol/L Normal 3.5-5.1 [facility] Comment on above: Performed By: #### A 1C #### [facility] [address] [place] [address] Dr. David Magana Protein [Mass/Vol] 5.3 g/dL Critically low 6.4-8.2 [facility] Comment on above: Performed By: #### A 1C #### [facility] [address] [place] [address] Dr. David Magana Sodium [Moles/Vol] 139 mmol/L Normal 136-145 [facility] Comment on above: Performed By: #### A 1C #### [facility] [address] [place] [address] Dr. David Magana Urea nitrogen [Mass/Vol] 33.0 mg/dL Critically high 7.0-18.0 [facility] Comment on above: Performed By: #### A 1C #### [facility] [address] [place] [address] Dr. David Magana Urea nitrogen/Creatinine [Mass ratio] 26.2 mg/mg Normal [facility] Comment on above: Performed By: #### A 1C #### [facility] [address] [place] [address] Dr. David Magana BNPon 07-20-2022 Natriuretic peptide B (Bld) [Mass/Vol] 7478.0 pg/mL Critically high <=1,800.0 [facility] Comment on above: Performed By: #### A 1C #### [facility] [address] [place] [address] Dr. David Magana CBC AUTO DIFFon 07-20-2022 BASO # 0.1 103/ul Normal 0.0-0.1 [facility] Comment on above: Performed By: #### M G, BMP, PHOS #### [facility] [address] [address] [address] David Magana Basophils/100 WBC (Bld) 0.8 % Normal 0.2-2.0 [facility] Comment on above: Performed By: #### M G, BMP, PHOS #### [facility] [address] [address] [address] David Magana EO # 0.1 103/ul Normal 0.0-0.7 [facility] Comment on above: Performed By: #### M G, BMP, PHOS #### [facility] [address] [place] [address] Dr. David Magana Eosinophils/100 WBC (Bld) 0.6 % Critically low 0.9-7.0 [facility] Comment on above: Performed By: #### M G, BMP, PHOS #### [facility] [address] [place] [address] Dr. David Magana Erythrocyte distribution width (RBC) [Ratio] 13.4 % Normal 11.0-15.0 [facility] Comment on above: Performed By: #### M G, BMP, PHOS #### [facility] [address] [place] [address] Dr. David Magana Hematocrit (Bld) [Volume fraction] 43.2 % Normal 42.0-54.0 [facility] Comment on above: Performed By: #### M G, BMP, PHOS #### [facility] [address] [place] [address] Dr. David Magana Hemoglobin (Bld) [Mass/Vol] 14.2 g/dL Normal 14.0-18.0 [facility] Comment on above: Performed By: #### M G, BMP, PHOS #### [facility] [address] [place] [address] Dr. David Magana IG # 0.21 10e3/ul Critically high 0.00-0.03 [facility] Comment on above: Performed By: #### M ERICK Faith, PHOS #### [facility] [address] [place] [address] Dr. David Magana IG % 2.0 % Critically high 0.0-0.5 [facility] Comment on above: Performed By: #### ERICK Jacques, PHOS #### [facility] [address] [place] [address] Dr. David Magana LYMPH # 0.8 103/ul Critically low 1.2-3.8 [facility] Comment on above: Performed By: #### ERICK Jacques, PHOS #### [facility] [address] [place] [address] Dr. David Magana Lymphocytes/100 WBC (Bld) 7.7 % Critically low 20.5-60.0 [facility] Comment on above: Performed By: #### ERICK Jacques, PHOS #### [facility] [address] [place] [address] Dr. David Magana MANUAL DIFF REQ NO Normal [facility] Comment on above: Performed By: #### ERICK Jacques, PHOS #### [facility] [address] [place] [address] Dr. David Magana MCH (RBC) [Entitic mass] 33.2 pg Normal 25.9-34.0 [facility] Comment on above: Performed By: #### ERICK Jacques, PHOS #### [facility] [address] [place] [address] Dr. David Magana MCHC (RBC) [Mass/Vol] 32.9 g/dL Normal 29.9-35.2 [facility] Comment on above: Performed By: #### ERICK Jacques, PHOS #### [facility] [address] [place] [address] Dr. David Magana MCV (RBC) [Entitic vol] 100.9 fL Critically high 80.0-94.0 [facility] Comment on above: Performed By: #### M G, BMP, PHOS #### [facility] [address] [address] [address] David Magana MONO # 1.0 103/ul Critically high 0.3-0.8 [facility] Comment on above: Performed By: #### M G, BMP, PHOS #### [facility] [address] [address] [address] David Magana Monocytes/100 WBC (Bld) 10.0 % Normal 1.7-12.0 [facility] Comment on above: Performed By: #### M G, BMP, PHOS #### [facility] [address] [place] [address] Dr. David Magana NEUT # 8.1 103/ul Critically high 1.4-6.5 [facility] Comment on above: Performed By: #### M G, BMP, PHOS #### [facility] [address] [place] [address] Dr. David Magana Neutrophils/100 WBC (Bld) 78.9 % Critically high 43.0-75.0 [facility] Comment on above: Performed By: #### M G, BMP, PHOS #### [facility] [address] [address] [address] David Magana Platelet mean volume (Bld) [Entitic vol] 10.8 fL Normal 9.5-13.5 [facility] Comment on above: Performed By: #### M G, BMP, PHOS #### [facility] [address] [place] [address] Dr. David Magana PLT 172 103/ul Normal 150-450 [facility] Comment on above: Performed By: #### M G, BMP, PHOS #### [facility] [address] [address] [address] David Magana RBC 4.28 106/ul Critically low 4.70-6.10 [facility] Comment on above: Performed By: #### M G, BMP, PHOS #### [facility] [address] [place] [address] Dr. David Magana WBC 10.3 103/ul Normal 4.0-11.0 [facility] Comment on above: Performed By: #### M ERICK Faith, PHOS #### [facility] [address] [place] [address] Dr. David Magana CULTURE URINEon 07-20-2022 CULTURE [...] F Trimethoprim/Sulfameth oxazole >=320 R F Normal [facility] Comment on above: Performed By: #### ERICK Jacques, PHOS #### [facility] [address] [place] [address] Dr. David Magana PROF 14(COMP METB)on 022 Albumin [Mass/Vol] 2.6 g/dL Critically low 3.4-5.0 [facility] Comment on above: Performed By: #### A 1C #### [facility] [address] [place] [address] Dr. David Magana Albumin/Globulin [Mass ratio] 0.9 {ratio} Normal [facility] Comment on above: Performed By: #### A 1C #### [facility] [address] [place] [address] Dr. David Magana ALP [Catalytic activity/Vol] 48 U/L Normal 46-116 [facility] Comment on above: Performed By: #### A 1C #### [facility] [address] [place] [address] Dr. David Magana ALT [Catalytic activity/Vol] 27 U/L Normal 16-63 [facility] Comment on above: Performed By: #### A 1C #### [facility] [address] [place], [place] [id number] Dr. David Magana Anion gap [Moles/Vol] 13.4 mmol/L Normal [facility] Comment on above: Performed By: #### A 1C #### [facility] [address] [place] [address] Dr. David Magana AST [Catalytic activity/Vol] 22 U/L Normal 15-37 [facility] Comment on above: Performed By: #### A 1C #### [facility] [address] [address] [address] David Magana Bilirubin [Mass/Vol] 0.5 mg/dL Normal 0.2-1.0 [facility] Comment on above: Performed By: #### A 1C #### [facility] [address] [place] [address] Dr. David Magana Calcium [Mass/Vol] 8.3 mg/dL Critically low 8.5-10.1 [facility] Comment on above: Performed By: #### A 1C #### [facility] [address] [place] [address] Dr. David Magana Chloride [Moles/Vol] 105 mmol/L Normal 98-107 [facility] Comment on above: Performed By: #### A 1C #### [facility] [address] [place] [address] Dr. David Magana CO2 [Moles/Vol] 21.0 mmol/L Normal 21.0-32.0 [facility] Comment on above: Performed By: #### A 1C #### [facility] [address] [place] [address] Dr. David Magana Creatinine [Mass/Vol] 1.38 mg/dL Critically high 0.70-1.30 [facility] Comment on above: Performed By: #### A 1C #### [facility] [address] [place] [address] Dr. David Magana EGFR-AF SOUTH AFRICAN 60 mL/min/1.73m2 Normal >=60 [facility] Comment on above: Performed By: #### A 1C #### [facility] [address] [place] [address] Dr. David Magana EGFR-NON AF SOUTH AFRICAN 49 mL/min/1.73m2 Critically low >=60 [facility] Comment on above: Performed By: #### A 1C #### [facility] [address] [place] [address] Dr. David Magana Globulin (S) [Mass/Vol] 2.8 g/dL Normal [facility] Comment on above: Performed By: #### A 1C #### [facility] [address] [address] [address] David Magana Glucose [Mass/Vol] 156 mg/dL Critically high 74-106 [facility] Comment on above: Performed By: #### A 1C #### [facility] [address] [place] [address] Dr. David Magana Potassium [Moles/Vol] 4.4 mmol/L Normal 3.5-5.1 [facility] Comment on above: Performed By: #### A 1C #### [facility] [address] [place] [address] Dr. David Magana Protein [Mass/Vol] 5.4 g/dL Critically low 6.4-8.2 [facility] Comment on above: Performed By: #### A 1C #### [facility] [address] [place] [address] Dr. David Magana Sodium [Moles/Vol] 135 mmol/L Critically low 136-145 [facility] Comment on above: Performed By: #### A 1C #### [facility] [address] [place] [address] Dr. David Magana Urea nitrogen [Mass/Vol] 40.0 mg/dL Critically high 7.0-18.0 [facility] Comment on above: Performed By: #### A 1C #### [facility] [address] [place] [address] Dr. David Magana Urea nitrogen/Creatinine [Mass ratio] 29.0 mg/mg Normal [facility] Comment on above: Performed By: #### A 1C #### [facility] [address] [place] [address] Dr. David Magana BNPon 07-19-2022 Natriuretic peptide B (Bld) [Mass/Vol] 59964.0 pg/mL Critically high <=1,800.0 [facility] Comment on above: Performed By: #### C VDTB #### [facility] [address] [place] [address] Dr. David Magana CBC AUTO DIFFon 07-19-2022 BASO # 0.0 103/ul Normal 0.0-0.1 [facility] Comment on above: Performed By: #### C BC #### [facility] [address] [place] [address] Dr. David Magana Basophils/100 WBC (Bld) 0.3 % Normal 0.2-2.0 [facility] Comment on above: Performed By: #### C BC #### [facility] [address] [place] [address] Dr. David Magana EO # 0.0 103/ul Normal 0.0-0.7 [facility] Comment on above: Performed By: #### C BC #### [facility] [address] [place] [address] Dr. David Magana Eosinophils/100 WBC (Bld) 0.2 % Critically low 0.9-7.0 [facility] Comment on above: Performed By: #### C BC #### [facility] [address] [place] [address] Dr. David Magana Erythrocyte distribution width (RBC) [Ratio] 13.4 % Normal 11.0-15.0 [facility] Comment on above: Performed By: #### C BC #### [facility] [address] [place] [address] Dr. David Magana Hematocrit (Bld) [Volume fraction] 43.4 % Normal 42.0-54.0 [facility] Comment on above: Performed By: #### C BC #### [facility] [address] [place] [address] Dr. David Magana Hemoglobin (Bld) [Mass/Vol] 14.6 g/dL Normal 14.0-18.0 [facility] Comment on above: Performed By: #### C BC #### [facility] [address] [address] [address] David Magana IG # 0.18 10e3/ul Critically high 0.00-0.03 [facility] Comment on above: Performed By: #### C BC #### [facility] [address] [address] [address] David Magana IG % 1.5 % Critically high 0.0-0.5 [facility] Comment on above: Performed By: #### C BC #### [facility] [address] [place] [address] Dr. David Magana LYMPH # 0.8 103/ul Critically low 1.2-3.8 [facility] Comment on above: Performed By: #### C BC #### [facility] [address] [place] [address] Dr. David Magana Lymphocytes/100 WBC (Bld) 6.6 % Critically low 20.5-60.0 [facility] Comment on above: Performed By: #### C BC #### [facility] [address] [place] [address] Dr. David Magana MANUAL DIFF REQ NO Normal [facility] Comment on above: Performed By: #### C BC #### [facility] [address] [place] [address] Dr. David Magana MCH (RBC) [Entitic mass] 33.7 pg Normal 25.9-34.0 [facility] Comment on above: Performed By: #### C BC #### [facility] [address] [place] [address] Dr. David Magana MCHC (RBC) [Mass/Vol] 33.6 g/dL Normal 29.9-35.2 [facility] Comment on above: Performed By: #### C BC #### [facility] [address] [place] [address] Dr. David Magana MCV (RBC) [Entitic vol] 100.2 fL Critically high 80.0-94.0 [facility] Comment on above: Performed By: #### C BC #### [facility] [address] [id number] [address] David Magana MONO # 1.1 103/ul Critically high 0.3-0.8 [facility] Comment on above: Performed By: #### C BC #### [facility] [address] [id number] [address] David Magana Monocytes/100 WBC (Bld) 9.3 % Normal 1.7-12.0 [facility] Comment on above: Performed By: #### C BC #### [facility] [address] [address] [address] David Magana NEUT # 9.6 103/ul Critically high 1.4-6.5 [facility] Comment on above: Performed By: #### C BC #### [facility] [address] [place] [address] Dr. David Magana Neutrophils/100 WBC (Bld) 82.1 % Critically high 43.0-75.0 [facility] Comment on above: Performed By: #### C BC #### [facility] [address] [address] [address] David Magana Platelet mean volume (Bld) [Entitic vol] 10.8 fL Normal 9.5-13.5 [facility] Comment on above: Performed By: #### C BC #### [facility] [address] [id number] [address] David Magana PLT 202 103/ul Normal 150-450 [facility] Comment on above: Performed By: #### C BC #### [facility] [address] [place] [address] Dr. David Magana RBC 4.33 106/ul Critically low 4.70-6.10 [facility] Comment on above: Performed By: #### C BC #### [facility] [address] [id number] [address] David Magana WBC 11.7 103/ul Critically high 4.0-11.0 [facility] Comment on above: Performed By: #### C BC #### [facility] [address] [place] [address] Dr. David Magana PROF 14(COMP METB)on 022 Albumin [Mass/Vol] 3.4 g/dL Normal 3.4-5.0 [facility] Comment on above: Performed By: #### A 1C #### [facility] [address] [place] [address] Dr. David Magana Albumin/Globulin [Mass ratio] 1.1 {ratio} Normal [facility] Comment on above: Performed By: #### A 1C #### [facility] [address] [place] [address] Dr. David Magana ALP [Catalytic activity/Vol] 63 U/L Normal 46-116 [facility] Comment on above: Performed By: #### A 1C #### [facility] [address] [place] [address] Dr. David Magana ALT [Catalytic activity/Vol] 34 U/L Normal 16-63 [facility] Comment on above: Performed By: #### A 1C #### [facility] [address] [place] [address] Dr. David Magana Anion gap [Moles/Vol] 20.9 mmol/L Normal [facility] Comment on above: Performed By: #### A 1C #### [facility] [address] [place] [address] Dr. David Magana AST [Catalytic activity/Vol] 18 U/L Normal 15-37 [facility] Comment on above: Performed By: #### A 1C #### [facility] [address] [place] [address] Dr. David Magana Bilirubin [Mass/Vol] 0.5 mg/dL Normal 0.2-1.0 [facility] Comment on above: Performed By: #### A 1C #### [facility] [address] [place] [address] Dr. David Magana Calcium [Mass/Vol] 8.5 mg/dL Normal 8.5-10.1 [facility] Comment on above: Performed By: #### A 1C #### [facility] [address] [place] [address] Dr. David Magana Chloride [Moles/Vol] 99 mmol/L Normal 98-107 [facility] Comment on above: Performed By: #### A 1C #### [facility] [address] [place] [address] Dr. David Magana CO2 [Moles/Vol] 19.1 mmol/L Critically low 21.0-32.0 [facility] Comment on above: Performed By: #### A 1C #### [facility] [address] [place] [address] Dr. David Magana Creatinine [Mass/Vol] 1.80 mg/dL Critically high 0.70-1.30 [facility] Comment on above: Performed By: #### A 1C #### [facility] [address] [place] [address] Dr. David Magana EGFR-AF SOUTH [place]FR[place] 44 mL/min/1.73m2 Critically low >=60 [facility] Comment on above: Performed By: #### A 1C #### [facility] [address] [place] [address] Dr. David Magana EGFR-NON AF S[place]TH AFR[place] 36 mL/min/1.73m2 Critically low >=60 [facility] Comment on above: Performed By: #### A 1C #### [facility] [address] [place] [address] Dr. David Magana Globulin (S) [Mass/Vol] 3.2 g/dL Normal [facility] Comment on above: Performed By: #### A 1C #### [facility] [address] [place] [address] Dr. David Magana Glucose [Mass/Vol] 287 mg/dL Critically high 74-106 T [facility] Comment on above: Performed By: #### A 1C #### [facility] [address] [address] [address] David Magana Potassium [Moles/Vol] 5.0 mmol/L Normal 3.5-5.1 [facility] Comment on above: Performed By: #### A 1C #### [facility] [address] [place] [address] Dr. David Magana Protein [Mass/Vol] 6.6 g/dL Normal 6.4-8.2 [facility] Comment on above: Performed By: #### A 1C #### [facility] [address] [place] [address] Dr. David Magana Sodium [Moles/Vol] 134 mmol/L Critically low 136-145 [facility] Comment on above: Performed By: #### A 1C #### [facility] [address] [place] [address] Dr. David Magana Urea nitrogen [Mass/Vol] 51.0 mg/dL Critically high 7.0-18.0 [facility] Comment on above: Performed By: #### A 1C #### [facility] [address] [place] [address] Dr. David Magana Urea nitrogen/Creatinine [Mass ratio] 28.3 mg/mg [facility] Comment on above: Performed By: #### A 1C #### [facility] [address] [place] [address] Dr. David Magana BLOOD GASES [facility] 07-18-2022 02 MODE NASAL CANNULA [facility] Comment on above: Performed By: #### A 1C #### [facility] [address] [place] [address] Dr. David Magana ALLENS TEST Positive [facility] Comment on above: Performed By: #### A 1C #### [facility] [address] [place] [address] Dr. David Magana Base excess Calc (Bld) [Moles/Vol] -9.0000 mmol/L Critically low -2.0-2.0 [facility] Comment on above: Performed By: #### A 1C #### [facility] [address] [place] [address] Dr. David Magana BIPAP PRESSURE Normal [facility] Comment on above: Performed By: #### A 1C #### [facility] [address] [place] [address] Dr. David Magana CPAP [facility] Comment on above: Performed By: #### A 1C #### [facility] [address] [address] [address] David Magana FIO2 Normal [facility] Comment on above: Performed By: #### A 1C #### [facility] [address] [place] [address] Dr. David Magana HCO3 (Bld) [Moles/Vol] 18.4 mmol/L Critically low 22.0-26.0 [facility] Comment on above: Performed By: #### A 1C #### [facility] [address] [place] [address] Dr. David Magana LPM 1.5 Normal [facility] Comment on above: Performed By: #### A 1C #### [facility] [address] [place] [address] Dr. David Magana MINUTE VOLUME Normal [facility] Comment on above: Performed By: #### A 1C #### [facility] [address] [place] [address] Dr. David Magana Oxygen (Bld) [Partial pressure] 69.5 mm[Hg] Critically low 80.0-100.0 [facility] Comment on above: Performed By: #### A 1C #### [facility] [address] [place] [address] Dr. David Magana Oxygen saturation in Blood 94.2 % Critically low 95.0-100.0 [facility] Comment on above: Performed By: #### A 1C #### [facility] [address] [place] [address] Dr. David Magana PCO2 29.6 mmHg Critically low 35.0-45.0 [facility] Comment on above: Performed By: #### A 1C #### [facility] [address] [place] [address] Dr. David Magana PEEP [facility] Comment on above: Performed By: #### A 1C #### [facility] [address] [place] [address] Dr. David Magana pH (Bld) 7.355 [pH] Normal 7.350-7.450 [facility] Comment on above: Performed By: #### A 1C #### [facility] [address] [place] [address] Dr. David Magana [facility] Comment on above: Performed By: #### A 1C #### [facility] [address] [place] [address] Dr. David Magana [facility] Comment on above: Performed By: #### A 1C #### [facility] [address] [place] [address] Dr. David Magana PUNCTURE SITE LR [facility] Comment on above: Performed By: #### A 1C #### [facility] [address] [place] [address] Dr. David Magana [facility] Comment on above: Performed By: #### A 1C #### [facility] [address] [place] [address] Dr. David Magana VENT [facility] Comment on above: Performed By: #### A 1C #### [facility] [address] [place] [address] Dr. David Magana [facility] Comment on above: Performed By: #### A 1C #### [facility] [address] [place] [address] Dr. David Magana BNPon 07-18-2022 Natriuretic peptide B (Bld) [Mass/Vol] 7047.0 pg/mL Critically high <=1,800.0 [facility] Comment on above: Performed By: #### C VDTBH #### [facility] [address] [place] [address] Dr. David Magana CARDIAC BARRIE 3-6on 2 CK [Catalytic activity/Vol] 396 U/L Critically high 39-308 [facility] Comment on above: Performed By: #### M ERICK Faith, PHOS #### [facility] [address] [place] [address] Dr. David Magana CK.MB [Mass/Vol] 2.94 ng/mL Normal <=3.60 [facility] Comment on above: Performed By: #### M ERICK Faith, PHOS #### [facility] [address] [place] [address] Dr. David Magana HSTROP 11.1 pg/mL Normal 4.0-76.1 [facility] Comment on above: Result Comment: CUT- OFF POINTS HAVE BEEN ESTABLISHED BASED ON THE FOURTH UNIVERSAL DEFINITIONS OF MYOCARDIAL INFARCTION. THE UPPER REFERENCE LIMIT (URL) OF TROPONIN, DEFINED THE 99TH PERCENTILE OF cTnI DISTRIBUTION IN A REFERENCE POPULATION, HAS BEEN CONFIRMED THE DECISION THRESHOLD FOR ID DIAGNOSIS. Performed By: #### ERICK Jacques, PHOS #### [facility] [address] [address] [address] David Magana CK [Catalytic activity/Vol] 58 U/L Normal 39-308 [facility] Comment on above: Performed By: #### ERICK Jacques, PHOS #### [facility] [address] [place] [address] Dr. David Magana CK.MB [Mass/Vol] 1.71 ng/mL Normal <=3.60 [facility] Comment on above: Performed By: #### ERICK Jacques, PHOS #### [facility] [address] [place] [address] Dr. David Magana HSTROP 10.6 pg/mL Normal 4.0-76.1 [facility] Comment on above: Result Comment: CUT- OFF POINTS HAVE BEEN ESTABLISHED BASED ON THE FOURTH UNIVERSAL DEFINITIONS OF MYOCARDIAL INFARCTION. THE UPPER REFERENCE LIMIT (URL) OF TROPONIN, DEFINED THE 99TH PERCENTILE OF cTnI DISTRIBUTION IN A REFERENCE POPULATION, HAS BEEN CONFIRMED THE DECISION THRESHOLD FOR ID DIAGNOSIS. Performed By: #### ERICK Jacques PHOS #### [facility] [address] [place] [address] Dr. David Magana CBC AUTO DIFFon 07-18-2022 BASO # 0.0 103/ul Normal 0.0-0.1 [facility] Comment on above: Performed By: #### ERICK Jacques, PHOS #### [facility] [address] [place] [address] Dr. David Magana Basophils/100 WBC (Bld) 0.2 % Normal 0.2-2.0 [facility] Comment on above: Performed By: #### ERICK Jacques, PHOS #### [facility] [address] [place] [address] Dr. David Magana EO # 0.0 103/ul Normal 0.0-0.7 [facility] Comment on above: Performed By: #### M G, BMP, PHOS #### [facility] [address] [place] [address] Dr. David Magana Eosinophils/100 WBC (Bld) 0.2 % Critically low 0.9-7.0 [facility] Comment on above: Performed By: #### M G, BMP, PHOS #### [facility] [address] [place] [address] Dr. David Magana Erythrocyte distribution width (RBC) [Ratio] 13.2 % Normal 11.0-15.0 [facility] Comment on above: Performed By: #### M G, BMP, PHOS #### [facility] [address] [place] [address] Dr. David Magana Hematocrit (Bld) [Volume fraction] 43.8 % Normal 42.0-54.0 [facility] Comment on above: Performed By: #### M G, BMP, PHOS #### [facility] [address] [place] [address] Dr. David Magana Hemoglobin (Bld) [Mass/Vol] 14.5 g/dL Normal 14.0-18.0 [facility] Comment on above: Performed By: #### M G, BMP, PHOS #### [facility] [address] [place] [address] Dr. David Magana IG # 0.15 10e3/ul Critically high 0.00-0.03 [facility] Comment on above: Performed By: #### M G, BMP, PHOS #### [facility] [address] [place] [address] Dr. David Magana IG % 1.3 % Critically high 0.0-0.5 [facility] Comment on above: Performed By: #### M G, BMP, PHOS #### [facility] [address] [place] [address] Dr. David Magana LYMPH # 0.5 103/ul Critically low 1.2-3.8 [facility] Comment on above: Performed By: #### ERICK Jacques, PHOS #### [facility] [address] [place] [address] Dr. David Magana Lymphocytes/100 WBC (Bld) 3.8 % Critically low 20.5-60.0 [facility] Comment on above: Performed By: #### ERICK Jacques, PHOS #### [facility] [address] [place] [address] Dr. David Magana MANUAL DIFF REQ NO Normal [facility] Comment on above: Performed By: #### ERICK Jacques, PHOS #### [facility] [address] [place] [address] Dr. David Magana MCH (RBC) [Entitic mass] 32.7 pg Normal 25.9-34.0 [facility] Comment on above: Performed By: #### ERICK Jacques, PHOS #### [facility] [address] [place] [address] Dr. David Magana MCHC (RBC) [Mass/Vol] 33.1 g/dL Normal 29.9-35.2 [facility] Comment on above: Performed By: #### ERICK Jacques, PHOS #### [facility] [address] [place] [address] Dr. David Magana MCV (RBC) [Entitic vol] 98.9 fL Critically high 80.0-94.0 [facility] Comment on above: Performed By: #### ERICK Jacques, PHOS #### [facility] [address] [place] [address] Dr. David Magana MONO # 0.7 103/ul Normal 0.3-0.8 [facility] Comment on above: Performed By: #### ERICK Jacques, PHOS #### [facility] [address] [place] [address] Dr. David Magana Monocytes/100 WBC (Bld) 5.7 % Normal 1.7-12.0 [facility] Comment on above: Performed By: #### M Marcell BMP, PHOS #### [facility] [address] [address] [address] David Magana NEUT # 10.4 103/ul Critically high 1.4-6.5 [facility] Comment on above: Performed By: #### M Marcell BMP, PHOS #### [facility] [address] [place] [address] Dr. David Magana Neutrophils/100 WBC (Bld) 88.8 % Critically high 43.0-75.0 [facility] Comment on above: Performed By: #### M Marcell, BMP, PHOS #### [facility] [address] [place] [address] Dr. David Magana Platelet mean volume (Bld) [Entitic vol] 11.0 fL Normal 9.5-13.5 [facility] Comment on above: Performed By: #### ERICK Jacques, PHOS #### [facility] [address] [place] [address] Dr. David Magana PLT 198 103/ul Normal 150-450 [facility] Comment on above: Performed By: #### ERICK Jacques, PHOS #### [facility] [address] [place] [address] Dr. David Magana RBC 4.43 106/ul Critically low 4.70-6.10 [facility] Comment on above: Performed By: #### ERICK Jacques, PHOS #### [facility] [address] [place] [address] Dr. David Magana WBC 11.8 103/ul Critically high 4.0-11.0 [facility] Comment on above: Performed By: #### M ERICK Faith, PHOS #### [facility] [address] [place] [address] HEAD WO CONon [...] ZELAYA Date: 2022-07-18 05:12 Normal [facility] Covid-19 PCR (CVDTBH)on SARS-CoV-2 (COVID-19) RNA SULTANA+probe Ql (Unsp spec) Detected Critically abnormal NOT DETECTED [facility] Comment on above: Result Comment: This test is not yet approved or cleared by the [place] FDA. When there are no FDA-approved or cleared tests available, and other criteria are met, FDA can make tests available under an emergency access mechanism called an Emergency Use Authorization (EUA). The EUA for this test is supported by the [place] of Health and Human Service's declaration that [...] used). Performed By: #### C VDTB #### [facility] [address] [address] [address] David Magana D-DIMERon 07-18-2022 D-DIMER 1.69 mg/L FEU Critically high <=0.[address] [facility] Comment on above: Performed By: #### C BC #### [facility] [address] [address] [address] David Magana D-DIMER COMMENTS SEE BELOW Normal [facility] Comment on above: [...] Performed By: #### C BC #### [facility] [address] [place] [address] Dr. David Magana POINT OF CARE GLUCOSEon Glucose [Mass/Vol] 329 mg/dL Critically high 74-106 [facility] Comment on above: Performed By: #### P OCGLUC #### [facility] [address] [place] [address] Dr. David Magana Glucose [Mass/Vol] 354 mg/dL Critically high -106 [facility] Comment on above: Performed By: #### P OCGLUC #### [facility] [address] [place] [address] Dr. David Magana PROF 14(COMP METB)on 022 Albumin [Mass/Vol] 3.6 g/dL Normal 3.4-5.0 [facility] Comment on above: Performed By: #### C VDTBH #### [facility] [address] [place] [address] Dr. David Magana Albumin/Globulin [Mass ratio] 1.1 {ratio} Normal [facility] Comment on above: Performed By: #### C VDTBH #### [facility] [address] [place] [address] Dr. David Magana ALP [Catalytic activity/Vol] 67 U/L Normal 46-116 [facility] Comment on above: Performed By: #### C VDTBH #### [facility] [address] [place] [address] Dr. David Magana ALT [Catalytic activity/Vol] 33 U/L Normal 16-63 [facility] Comment on above: Performed By: #### C VDTBH #### [facility] [address] [place] [address] Dr. David Magana Anion gap [Moles/Vol] 23.5 mmol/L Normal [facility] Comment on above: Performed By: #### C VDTBH #### [facility] [address] [place] [address] Dr. David Magana AST [Catalytic activity/Vol] 13 U/L Critically low 15-37 [facility] Comment on above: Performed By: #### C VDTBH #### [facility] [address] [place] [address] Dr. David Magana Bilirubin [Mass/Vol] 0.6 mg/dL Normal 0.2-1.0 [facility] Comment on above: Performed By: #### C VDTBH #### [facility] [address] [place] [address] Dr. David Magana Calcium [Mass/Vol] 8.4 mg/dL Critically low 8.5-10.1 [facility] Comment on above: Performed By: #### C VDTBH #### [facility] [address] [place] [address] Dr. David Magana Chloride [Moles/Vol] 93 mmol/L Critically low 98-107 [facility] Comment on above: Performed By: #### C VDTBH #### [facility] [address] [place] [address] Dr. David Magana CO2 [Moles/Vol] 17.9 mmol/L Critically low 21.0-32.0 [facility] Comment on above: Performed By: #### C VDTBH #### [facility] [address] [place] [address] Dr. David Magana Creatinine [Mass/Vol] 2.15 mg/dL Critically high 0.70-1.30 [facility] Comment on above: Performed By: #### C VDTBH #### [facility] [address] [place] [address] Dr. David Magana EGFR-AF SOUTH AFRICAN 36 mL/min/1.73m2 Critically low >=60 [facility] Comment on above: Performed By: #### C VDTBH #### [facility] [address] [place] [address] Dr. David Magana EGFR-NON AF SOUTH AFR[place] 30 mL/min/1.73m2 Critically low >=60 [facility] Comment on above: Performed By: #### C VDTBH #### [facility] [address] [address] [address] David Magana Globulin (S) [Mass/Vol] 3.2 g/dL Normal [facility] Comment on above: Performed By: #### C VDTBH #### [facility] [address] [address] [address] David Magana Glucose [Mass/Vol] 345 mg/dL Critically high 74-106 [facility] Comment on above: Performed By: #### C VDTBH #### [facility] [address] [place] [address] Dr. David Magana Potassium [Moles/Vol] 5.4 mmol/L Critically high 3.5-5.1 [facility] Comment on above: Performed By: #### C VDTBH #### [facility] [address] [place] [address] Dr. David Magana Performed By: #### K #### [facility] [address] [place] [address] Dr. David Magana Protein [Mass/Vol] 6.8 g/dL Normal 6.4-8.2 [facility] Comment on above: Performed By: #### C VDTBH #### [facility] [address] [place] [address] Dr. David Magana Sodium [Moles/Vol] 129 mmol/L Critically low 136-145 [facility] Comment on above: Performed By: #### C VDTBH #### [facility] [address] [place] [address] Dr. David Magana Urea nitrogen [Mass/Vol] 65.0 mg/dL Critically high 7.0-18.0 [facility] Comment on above: Performed By: #### C VDTBH #### [facility] [address] [place] [address] Dr. David Magana Urea nitrogen/Creatinine [Mass ratio] 30.2 mg/mg Normal [facility] Comment on above: Performed By: #### C VDTBH #### [facility] [address] [address] [address] David Magana UA RANDOM W/MICROSCOPICon BACTERIA NONE SEEN Normal NONE SEEN [facility] Comment on above: Performed By: #### M G, BMP, PHOS #### [facility] [address] [place] [address] Dr. David Magana Bilirubin Ql (U) Negative Normal NEGATIVE [facility] Comment on above: Performed By: #### M G, BMP, PHOS #### [facility] [address] [place] [address] Dr. David Magana CAST NONE SEEN Normal NONE SEEN [facility] Comment on above: Performed By: #### M G, BMP, PHOS #### [facility] [address] [place] [address] Dr. David Magana Clarity (U) CLEAR Normal CLEAR [facility] Comment on above: Performed By: #### M G, BMP, PHOS #### [facility] [address] [place] [address] Dr. David Magana Color (U) LT. YELLOW Normal YELLOW [facility] Comment on above: Performed By: #### M Marcell, BMP, PHOS #### [facility] [address] [place] [address] Dr. David Magana Crystals LM Nom (Urine sed) NONE SEEN Normal NONE SEEN [facility] Comment on above: Performed By: #### M G, BMP, PHOS #### [facility] [address] [place] [address] Dr. David Magana Epithelial cells LM Ql (Urine sed) RARE Normal NONE SEEN /RARE [facility] Comment on above: Performed By: #### M G, BMP, PHOS #### [facility] [address] [place] [address] Dr. David Magana Glucose Ql (U) 1000 mg/dl Abnormal NEGATIVE [facility] Comment on above: Performed By: #### M Marcell, BMP, PHOS #### [facility] [address] [address] [address] David Magana Hemoglobin Ql (U) Negative Normal NEGATIVE [facility] Comment on above: Performed By: #### M G, BMP, PHOS #### [facility] [address] [address] [address] David Magana Ketones Ql (U) 15 mg/dl Abnormal NEGATIVE [facility] Comment on above: Performed By: #### M G, BMP, PHOS #### [facility] [address] [address] [address] David Magana LEUKOCYTES Negative Normal NEGATIVE [facility] Comment on above: Performed By: #### M G, BMP, PHOS #### [facility] [address] [place] [address] Dr. David Magana MUCOUS NONE SEEN Normal NONE SEEN [facility] Comment on above: Performed By: #### M G, BMP, PHOS #### [facility] [address] [place] [address] Dr. David Magana Nitrite Ql (U) Negative Normal NEGATIVE [facility] Comment on above: Performed By: #### M G, BMP, PHOS #### [facility] [address] [place] [address] Dr. David Magana pH (U) 5.5 [pH] Normal 5-9 [facility] Comment on above: Performed By: #### M G, BMP, PHOS #### [facility] [address] [place] [address] Dr. David Magana RBC NONE SEEN Abnormal 0-2 [facility] Comment on above: Performed By: #### M G, BMP, PHOS #### [facility] [address] [place] [address] Dr. David Magana SPEC GRAVITY <=1.005 Abnormal 1.005-<=1.02 5 [facility] Comment on above: Performed By: #### M G, BMP, PHOS #### [facility] [address] [place] [address] Dr. David Magana UA PROTEIN Negative Normal NEGATIVE/ TRACE [facility] Comment on above: Performed By: #### M G, BMP, PHOS #### [facility] [address] [address] [address] David Magana Urobilinogen Qn (U) 0.2 {Dionna'U}/dL Normal 0.2 - 1. 0 [facility] Comment on above: Performed By: #### M Marcell, BMP, PHOS #### [facility] [address] [address] [address] David Magana WBC NONE SEEN Normal NONE SEEN [facility] Comment on above: Performed By: #### M G, BMP, PHOS #### [facility] [address] [address] [address] David Magana XR CHEST 1 Von [...] DWYER Date: 2022-07-18 00:09 Normal [facility] CARDIAC BARRIE ADMITon 022 CK [Catalytic activity/Vol] 61 U/L Normal 39-308 [facility] Comment on above: Performed By: #### C BC #### [facility] [address] [place] [address] Dr. David Magana CK.MB [Mass/Vol] 1.84 ng/mL Normal <=3.60 [facility] Comment on above: Performed By: #### C BC #### [facility] [address] [address] [address] David Magana HSTROP 9.4 pg/mL Normal 4.0-76.1 [facility] Comment on above: Result Comment: CUT- OFF POINTS HAVE BEEN ESTABLISHED BASED ON THE FOURTH UNIVERSAL DEFINITIONS OF MYOCARDIAL INFARCTION. THE UPPER REFERENCE LIMIT (URL) OF TROPONIN, DEFINED THE 99TH PERCENTILE OF cTnI DISTRIBUTION IN A REFERENCE POPULATION, HAS BEEN CONFIRMED THE DECISION THRESHOLD FOR ID DIAGNOSIS. Performed By: #### C BC #### [facility] [address] [place] [address] Dr. David Magana DUSTIN 533 ng/mL Critically high 16-96 [facility] Comment on above: Performed By: #### C BC #### [facility] [address] [place] [address] Dr. David Magana CBC AUTO DIFFon 07-17-2022 BASO # 0.0 103/ul Normal 0.0-0.1 [facility] Comment on above: Performed By: #### M G, BMP, PHOS #### [facility] [address] [place] [address] Dr. David Magana Basophils/100 WBC (Bld) 0.2 % Normal 0.2-2.0 [facility] Comment on above: Performed By: #### M G, BMP, PHOS #### [facility] [address] [place] [address] Dr. David Magana EO # 0.0 103/ul Normal 0.0-0.7 [facility] Comment on above: Performed By: #### M G, BMP, PHOS #### [facility] [address] [place] [address] Dr. David Magana Eosinophils/100 WBC (Bld) 0.1 % Critically low 0.9-7.0 [facility] Comment on above: Performed By: #### M G, BMP, PHOS #### [facility] [address] [place] [address] Dr. David Magana Erythrocyte distribution width (RBC) [Ratio] 13.2 % Normal 11.0-15.0 [facility] Comment on above: Performed By: #### M G, BMP, PHOS #### [facility] [address] [place] [address] Dr. David Magana Hematocrit (Bld) [Volume fraction] 43.1 % Normal 42.0-54.0 [facility] Comment on above: Performed By: #### M G, BMP, PHOS #### [facility] [address] [place] [address] Dr. David Magana Hemoglobin (Bld) [Mass/Vol] 14.5 g/dL Normal 14.0-18.0 [facility] Comment on above: Performed By: #### M ERICK Faith, PHOS #### [facility] [address] [place] [address] Dr. David Magana IG # 0.14 10e3/ul Critically high 0.00-0.03 [facility] Comment on above: Performed By: #### M ERICK Faith, PHOS #### [facility] [address] [place] [address] Dr. David Magana IG % 1.2 % Critically high 0.0-0.5 [facility] Comment on above: Performed By: #### ERICK Jacques, PHOS #### [facility] [address] [place] [address] Dr. David Magana LYMPH # 0.4 103/ul Critically low 1.2-3.8 [facility] Comment on above: Performed By: #### ERICK Jacques, PHOS #### [facility] [address] [place] [address] Dr. David Magana Lymphocytes/100 WBC (Bld) 3.4 % Critically low 20.5-60.0 [facility] Comment on above: Performed By: #### ERICK Jacques, PHOS #### [facility] [address] [place] [address] Dr. David Magana MANUAL DIFF REQ NO Normal [facility] Comment on above: Performed By: #### ERICK Jacques, PHOS #### [facility] [address] [place] [address] Dr. David Magana MCH (RBC) [Entitic mass] 33.3 pg Normal 25.9-34.0 [facility] Comment on above: Performed By: #### ERICK Jacques, PHOS #### [facility] [address] [place] [address] Dr. David Magana MCHC (RBC) [Mass/Vol] 33.6 g/dL Normal 29.9-35.2 [facility] Comment on above: Performed By: #### M G, BMP, PHOS #### [facility] [address] [place] [address] Dr. David Magana MCV (RBC) [Entitic vol] 98.9 fL Critically high 80.0-94.0 [facility] Comment on above: Performed By: #### M G, BMP, PHOS #### [facility] [address] [place] [address] Dr. David Magana MONO # 1.1 103/ul Critically high 0.3-0.8 [facility] Comment on above: Performed By: #### M G, BMP, PHOS #### [facility] [address] [place] [address] Dr. David Magana Monocytes/100 WBC (Bld) 8.9 % Normal 1.7-12.0 [facility] Comment on above: Performed By: #### M Marcell BMP, PHOS #### [facility] [address] [place] [address] Dr. David Magana NEUT # 10.3 103/ul Critically high 1.4-6.5 [facility] Comment on above: Performed By: #### M Marcell BMP, PHOS #### [facility] [address] [place] [address] Dr. David Magana Neutrophils/100 WBC (Bld) 86.2 % Critically high 43.0-75.0 [facility] Comment on above: Performed By: #### M Marcell BMP, PHOS #### [facility] [address] [place] [address] Dr. David Magana Platelet mean volume (Bld) [Entitic vol] 11.1 fL Normal 9.5-13.5 [facility] Comment on above: Performed By: #### M Marcell BMP, PHOS #### [facility] [address] [place] [address] Dr. David Magana PLT 229 103/ul Normal 150-450 [facility] Comment on above: Performed By: #### M Marcell, BMP, PHOS #### [facility] [address] [place] [address] Dr. David Magana RBC 4.36 106/ul Critically low 4.70-6.10 [facility] Comment on above: Performed By: #### M ERICK Faith, PHOS #### [facility] [address] [address] [address] David Magana WBC 11.9 103/ul Critically high 4.0-11.0 [facility] Comment on above: Performed By: #### M ERICK Faith, PHOS #### [facility] [address] [place] [address] Dr. David Magana PROF CHEM 8 (BAS METB)on Anion gap [Moles/Vol] 26.5 mmol/L Normal [facility] Comment on above: Performed By: #### C BC #### [facility] [address] [place] [address] Dr. David Magana Calcium [Mass/Vol] 8.2 mg/dL Critically low 8.5-10.1 [facility] Comment on above: Performed By: #### C BC #### [facility] [address] [place] [address] Dr. David Magana Chloride [Moles/Vol] 89 mmol/L Critically low 98-107 [facility] Comment on above: Performed By: #### C BC #### [facility] [address] [place] [place] [address] Dr. David Magana CO2 [Moles/Vol] 14.5 mmol/L Critically low 21.0-32.0 [facility] Comment on above: Performed By: #### C BC #### [facility] [address] [place] [address] Dr. David Magana Creatinine [Mass/Vol] 2.78 mg/dL Critically high 0.70-1.30 [facility] Comment on above: Performed By: #### C BC #### [facility] [address] [place] [address] Dr. David Magana EGFR-AF SOUTH AFRICAN 27 mL/min/1.73m2 Critically low >=60 [facility] Comment on above: Performed By: #### C BC #### [facility] [address] [address] [address] David Magana EGFR-NON AF SOUTH AFRICAN 22 mL/min/1.73m2 Critically low >=60 [facility] Comment on above: Performed By: #### C BC #### [facility] [address] [address] [address] David Magana Glucose [Mass/Vol] 442 mg/dL Critically high 74-106 T [facility] Comment on above: Performed By: #### C BC #### [facility] [address] [address] [address] David Magana Potassium [Moles/Vol] 6.0 mmol/L Critically high 3.5-5.1 [facility] Comment on above: Performed By: #### C BC #### [facility] [address] [address] [address] David Magana Sodium [Moles/Vol] 124 mmol/L Critically low 136-145 [facility] Comment on above: Performed By: #### C BC #### [facility] [address] [address] [address] David Magana Urea nitrogen [Mass/Vol] 73.0 mg/dL Critically high 7.0-18.0 [facility] Comment on above: Performed By: #### C BC #### [facility] [address] [address] [address] David Magana Urea nitrogen/Creatinine [Mass ratio] 26.3 mg/mg Normal [facility] Comment on above: Performed By: #### C BC #### [facility] [address] [address] [address] David Mag[facility]16 SARS-CoV-2 (COVID-19) RNA SULTANA+probe Ql (Unsp spec) Detected Critically abnormal NOT DETECTED [facility] Comment on above: Result Comment: This test is not yet approved or cleared by the [place] FDA. When there are no FDA-approved or cleared tests available, and other criteria are met, FDA can make tests available under an emergency access mechanism called an Emergency Use Authorization (EUA). The EUA for this test is supported by the [place] of Health and Human Service's (HHS's) declaration [...] #### M Marcell, ERICK, PHOS #### [facility] [address] [address] [address] David Magana ECHOCARDIO M/2D COMPLETEon 0 07-01-2022 ECHOCARDIO M/2D COMPLETE Patient: NADIR BETH Exam Date: 07/01/2022 : 1940 Gender:M Ordering : DR CLARIBEL CISNEROS M.D. Admission #: [id number] Family : DR PJ YOUSSEF . Order #: [id number] CLICK HERE TO VIEW EXAM ECHOCARDIOGRAM REPORT [...] on 07/01/2022 at 16:27 Normal [facility] Covid-19 PCR ([facility])on SARS-CoV-2 (COVID-19) RNA SULTANA+probe Ql (Unsp spec) Not detected Normal NOT DETECTED [facility] Comment on above: Result Comment: When [...] for this test is supported by the [place] of Health and Human Service's declaration that [...] used). Performed By: #### C VDTB #### [facility] [address] [place] [address] Dr. David aMgana CREATININE URINEon 2 URINE CREAT 14.70 mg/dL Critically low 20.00-300.[address] [facility] Comment on above: Performed By: #### M Marcell, ERICK, PHOS #### [facility] [address] [place] [address] Dr. David Magana GLYCOHEMOGLOBIN A1Con 2021 ADA RECOMMENDATION SEE BELOW Normal [facility] Comment on above: Result Comment: ADA RECOMMENDED LIMIT 4.0 - 6.0 ADA THERAPEUTIC TARGET < 7.0 ACTION SUGGESTED > 7.0 Performed By: #### A 1C #### [facility] [address] [place] [address] Dr. David Magana Glucose [Mass/Vol] 209 mg/dL Normal [facility] Comment on above: Performed By: #### A 1C #### [facility] [address] [place] [address] Dr. David Magana HbA1c (Bld) [Mass fraction] 8.9 % Critically high 4.5-6.2 [facility] Comment on above: Performed By: #### A 1C #### [facility] [address] [place] [address] Dr. David Magana MAGNESIUMon 06-08-2022 Magnesium [Mass/Vol] 2.3 mg/dL Normal 1.8-2.4 [facility] Comment on above: Performed By: #### M G, BMP, PHOS #### [facility] [address] [place] [address] Dr. David Magana PHOSPHORUSon 06-08-2022 Phosphate [Mass/Vol] 3.5 mg/dL Normal 2.6-4.7 [facility] Comment on above: Performed By: #### M Marcell, BMP, PHOS #### [facility] [address] [place] [address] Dr. David Magana PROF CHEM 8 (BAS METB)on Anion gap [Moles/Vol] 10.6 mmol/L Normal [facility] Comment on above: Performed By: #### M G, BMP, PHOS #### [facility] [address] [place] [address] Dr. David Magana Calcium [Mass/Vol] 9.2 mg/dL Normal 8.5-10.[address] [facility] Comment on above: Performed By: #### M G, BMP, PHOS #### [facility] [address] [place] [address] Dr. David Magana Chloride [Moles/Vol] 102 mmol/L Normal 98-107 [facility] Comment on above: Performed By: #### M G, BMP, PHOS #### [facility] [address] [place] [address] Dr. David Magana CO2 [Moles/Vol] 30.1 mmol/L Normal 21.0-32.0 [facility] Comment on above: Performed By: #### M G, BMP, PHOS #### [facility] [address] [address] [address] David Magana Creatinine [Mass/Vol] 1.70 mg/dL Critically high 0.70-1.30 [facility] Comment on above: Performed By: #### M G, BMP, PHOS #### [facility] [address] [address] [address] David Magana EGFR-AF SOUTH AFRICAN 47 mL/min/1.73m2 Critically low >=60 [facility] Comment on above: Performed By: #### M G, BMP, PHOS #### [facility] [address] [address] [address] David Magana EGFR-NON AF S[place]TH AFRICAN 39 mL/min/1.73m2 Critically low >=60 [facility] Comment on above: Performed By: #### M G, BMP, PHOS #### [facility] [address] [address] [address] David Magana Glucose [Mass/Vol] 197 mg/dL Critically high 74-106 [facility] Comment on above: Performed By: #### M G, BMP, PHOS #### [facility] [address] [address] [address] David Magana Potassium [Moles/Vol] 4.7 mmol/L Normal 3.5-5.1 [facility] Comment on above: Performed By: #### M G, BMP, PHOS #### [facility] [address] [address] [address] David Magana Sodium [Moles/Vol] 138 mmol/L Normal 136-145 [facility] Comment on above: Performed By: #### M G, BMP, PHOS #### [facility] [address] [address] [address] David Magana Urea nitrogen [Mass/Vol] 25.0 mg/dL Critically high 7.0-18.0 [facility] Comment on above: Performed By: #### M G, BMP, PHOS #### [facility] [address] [address] [address] David Magana Urea nitrogen/Creatinine [Mass ratio] 14.7 mg/mg Normal [facility] Comment on above: Performed By: #### M G, BMP, PHOS #### [facility] [address] [place] [address] Dr. David Magana PROTEIN RAND URINEon 022 UR PROT <5.0 Normal <=11.9 [facility] Comment on above: Performed By: #### C REAU, PROTU #### [facility] [address] [place] [address] Dr. David Magana BILIRUBIN CONJUGATED (DIRECT )on 04-28-2022 BILI, CONJUGATED 0.1 mg/dL Normal 0.0-0.2 [facility] Comment on above: Performed By: #### P OCGLUC #### [facility] [address] [place] [address] Dr. David Magana CBC AUTO DIFFon 04-28-2022 BASO # 0.1 103/ul Normal 0.0-0.1 [facility] Comment on above: Performed By: #### C VDTBH #### [facility] [address] [place] [address] Dr. David Magana Basophils/100 WBC (Bld) 0.7 % Normal 0.2-2.0 [facility] Comment on above: Performed By: #### C VDTBH #### [facility] [address] [place] [address] Dr. David Magana EO # 0.5 103/ul Normal 0.0-0.7 [facility] Comment on above: Performed By: #### C VDTBH #### [facility] [address] [place] [address] Dr. David Magana Eosinophils/100 WBC (Bld) 6.7 % Normal 0.9-7.0 [facility] Comment on above: Performed By: #### C VDTBH #### [facility] [address] [place] [address] Dr. David Magana Erythrocyte distribution width (RBC) [Ratio] 13.6 % Normal 11.0-15.0 [facility] Comment on above: Performed By: #### C VDTBH #### [facility] [address] [place] [address] Dr. David Magana Hematocrit (Bld) [Volume fraction] 45.9 % Normal 42.0-54.0 [facility] Comment on above: Performed By: #### C VDTBH #### [facility] [address] [place] [address] Dr. David Magana Hemoglobin (Bld) [Mass/Vol] 14.9 g/dL Normal 14.0-18.0 [facility] Comment on above: Performed By: #### C VDTBH #### [facility] [address] [place] [address] Dr. David Magana IG # 0.03 10e3/ul Normal 0.00-0.03 [facility] Comment on above: Performed By: #### C VDTBH #### [facility] [address] [place] [address] Dr. David Magana IG % 0.4 % Normal 0.0-0.5 [facility] Comment on above: Performed By: #### C VDTBH #### [facility] [address] [place] [address] Dr. David Magana LYMPH # 1.0 103/ul Critically low 1.2-3.8 [facility] Comment on above: Performed By: #### C VDTBH #### [facility] [address] [place] [address] Dr. David Magana Lymphocytes/100 WBC (Bld) 13.4 % Critically low 20.5-60.0 [facility] Comment on above: Performed By: #### C VDTBH #### [facility] [address] [place] [address] Dr. David Magana MANUAL DIFF REQ NO Normal [facility] Comment on above: Performed By: #### C VDTBH #### [facility] [address] [place] [address] Dr. David Magana MCH (RBC) [Entitic mass] 33.8 pg Normal 25.9-34.0 [facility] Comment on above: Performed By: #### C VDTBH #### [facility] [address] [address] [address] David Magana MCHC (RBC) [Mass/Vol] 32.5 g/dL Normal 29.9-35.2 [facility] Comment on above: Performed By: #### C VDTBH #### [facility] [address] [place] [address] Dr. David Magana MCV (RBC) [Entitic vol] 104.1 fL Critically high 80.0-94.0 [facility] Comment on above: Performed By: #### C VDTBH #### [facility] [address] [place] [address] Dr. David Magana MONO # 0.8 103/ul Normal 0.3-0.8 [facility] Comment on above: Performed By: #### C VDTBH #### [facility] [address] [place] [address] Dr. David Magana Monocytes/100 WBC (Bld) 10.2 % Normal 1.7-12.0 [facility] Comment on above: Performed By: #### C VDTBH #### [facility] [address] [place] [address] Dr. David Magana NEUT # 5.1 103/ul Normal 1.4-6.5 [facility] Comment on above: Performed By: #### C VDTBH #### [facility] [address] [place] [address] Dr. David Magana Neutrophils/100 WBC (Bld) 68.6 % Normal 43.0-75.0 [facility] Comment on above: Performed By: #### C VDTBH #### [facility] [address] [place] [address] Dr. David Magana Platelet mean volume (Bld) [Entitic vol] 11.3 fL Normal 9.5-13.5 [facility] Comment on above: Performed By: #### C VDTBH #### [facility] [address] [place] [address] Dr. David Magana PLT 185 103/ul Normal 150-450 [facility] Comment on above: Performed By: #### C VDTBH #### [facility] [address] [address] [address] David Magana RBC 4.41 106/ul Critically low 4.70-6.10 [facility] Comment on above: Performed By: #### C VDTBH #### [facility] [address] [address] [address] David Magana WBC 7.5 103/ul Normal 4.0-11.0 [facility] Comment on above: Performed By: #### C VDTBH #### [facility] [address] [address] [address] David Magana FREE T3on 04-28-2022 FREE T3 2.17 pg/mlL Critically low 2.18-3.98 [facility] Comment on above: Performed By: #### P OCGLUC #### [facility] [address] [place] [address] Dr. David Magana LIPID PROFILEon 04-28-2022 CHOL-HDL RATIO NORM SEE BELOW Normal [facility] Comment on above: Result Comment: 3.3 - 4.4 LOW RISK 4.4 - 7.1 AVERAGE RISK 7.1 - 11.0 MODERATE RISK >11.0 HIGH RISK Performed By: #### P OCGLUC #### [facility] [address] [place] [address] Dr. David Magana Cholesterol [Mass/Vol] 234 mg/dL Critically high <=200 [facility] Comment on above: Performed By: #### P OCGLUC #### [facility] [address] [place] [address] Dr. David Magana Cholesterol in HDL [Mass/Vol] 58 mg/dL Normal 40-60 [facility] Comment on above: Performed By: #### P OCGLUC #### [facility] [address] [place] [address] Dr. David Magana Cholesterol in LDL [Mass/Vol] 129.0 mg/dL Normal [facility] Comment on above: Performed By: #### P OCGLUC #### [facility] [address] [place] [address] Dr. David Magana Cholesterol.total/Cho lesterol in HDL [Mass ratio] 4.0 {ratio} Normal [facility] Comment on above: Performed By: #### P OCGLUC #### [facility] [address] [address] [address] David Magana HDL NORMAL > or = 60 mg/dl - LO W CARDIOVASCULAR RISK <40 mg/dl - HIGH CARDIOVASCULAR RISK Normal [facility] Comment on above: Performed By: #### P OCGLUC #### [facility] [address] [address] [address] David Magana LDL CALC NORMAL SEE BELOW Normal [facility] Comment on above: Result Comment: <100 mg/dl OPTIMAL 100 - 129 mg/dl NEAR OR ABOVE OPTIMAL 130 - 159 mg/dl BORDERLINE HIGH 160 - 189 mg/dl HIGH >190 mg/dl VERY HIGH Performed By: #### P OCGLUC #### [facility] [address] [address] [address] David Magana Triglyceride [Mass/Vol] 235 mg/dL Critically high <=150 [facility] Comment on above: Performed By: #### P OCGLUC #### [facility] [address] [address] [address] David Magana VLDL CALC 47.0 mg/dL Normal [facility] Comment on above: Performed By: #### P OCGLUC #### [facility] [address] [address] [address] David Magana PROF 14(COMP METB)on 022 Albumin [Mass/Vol] 3.2 g/dL Critically low 3.4-5.0 Th e [facility] Comment on above: Performed By: #### P OCGLUC #### [facility] [address] [address] [address] David Magana Albumin/Globulin [Mass ratio] 0.9 {ratio} Normal [facility] Comment on above: Performed By: #### P OCGLUC #### [facility] [address] [address] [address] David Magana ALP [Catalytic activity/Vol] 77 U/L Normal 46-116 [facility] Comment on above: Performed By: #### P OCGLUC #### [facility] [address] [address] [address] David Magana ALT [Catalytic activity/Vol] 24 U/L Normal 16-63 [facility] Comment on above: Performed By: #### P OCGLUC #### [facility] [address] [address] [address] David Magana Anion gap [Moles/Vol] 13.1 mmol/L Normal [facility] Comment on above: Performed By: #### P OCGLUC #### [facility] [address] [address] [address] David Magana AST [Catalytic activity/Vol] 13 U/L Critically low 15-37 [facility] Comment on above: Performed By: #### P OCGLUC #### [facility] [address] [address] [address] David Magana Bilirubin [Mass/Vol] 0.3 mg/dL Normal 0.2-1.0 [facility] Comment on above: Performed By: #### P OCGLUC #### [facility] [address] [address] [address] David Magana Calcium [Mass/Vol] 8.8 mg/dL Normal 8.5-10.1 [facility] Comment on above: Performed By: #### P OCGLUC #### [facility] [address] [address] [address] David Magana Chloride [Moles/Vol] 106 mmol/L Normal 98-107 [facility] Comment on above: Performed By: #### P OCGLUC #### [facility] [address] [address] [address] David Magana CO2 [Moles/Vol] 27.5 mmol/L Normal 21.0-32.0 [facility] Comment on above: Performed By: #### P OCGLUC #### [facility] [address] [address] [address] David Magana Creatinine [Mass/Vol] 1.62 mg/dL Critically high 0.70-1.30 [facility] Comment on above: Performed By: #### P OCGLUC #### [facility] [address] [address] [address] David Magana EGFR-AF SOUTH AFR[place] 50 mL/min/1.73m2 Critically low >=60 [facility] Comment on above: Performed By: #### P OCGLUC #### [facility] [address] [address] [address] David Magana EGFR-NON AF S[place]TH [place]FR[place] 41 mL/min/1.73m2 Critically low >=60 [facility] Comment on above: Performed By: #### P OCGLUC #### [facility] [address] [address] [address] David Magana Globulin (S) [Mass/Vol] 3.4 g/dL Normal [facility] Comment on above: Performed By: #### P OCGLUC #### [facility] [address] [address] [address] David Magana Glucose [Mass/Vol] 206 mg/dL Critically high 74-106 [facility] Comment on above: Performed By: #### P OCGLUC #### [facility] [address] [address] [address] David Magana Potassium [Moles/Vol] 4.6 mmol/L Normal 3.5-5.1 [facility] Comment on above: Performed By: #### P OCGLUC #### [facility] [address] [address] [address] David Magana Protein [Mass/Vol] 6.6 g/dL Normal 6.4-8.[address] [facility] Comment on above: Performed By: #### P OCGLUC #### [facility] [address] [address] [address] David Magana Sodium [Moles/Vol] 142 mmol/L Normal 136-145 [facility] Comment on above: Performed By: #### P OCGLUC #### [facility] [address] [address] [address] David Magana Urea nitrogen [Mass/Vol] 26.0 mg/dL Critically high 7.0-18.0 [facility] Comment on above: Performed By: #### P OCGLUC #### [facility] [address] [address] [address] David Magana Urea nitrogen/Creatinine [Mass ratio] 16.0 mg/mg Normal [facility] Comment on above: Performed By: #### P OCGLUC #### [facility] [address] [place] [address] Dr. David Magana T4on 04-28-2022 T4 [Mass/Vol] 7.70 ug/dL Normal 4.50-12.10 [facility] Comment on above: Performed By: #### P OCGLUC #### [facility] [address] [address] [address] David Magana TSHon 04-28-2022 TSH 2.187 uIU/mL Normal 0.358-3.740 [facility] Comment on above: Performed By: #### P OCGLUC #### [facility] [address] [place] [address] Dr. David Magana TSH RANGE SEE BELOW Normal [facility] Comment on above: Result Comment: <0.3 4 UIU/ml HYPERTHYROID 0.34-5.60 UIU/ml EUTHYROID >5.60 UIU/ml HYPOTHYROID Performed By: #### P OCGLUC #### [facility] [address] [place] [address] Dr. David Magana Vital Signs Date Time Vital Sign Value Performing Clinician Facility 12-04-2024 08:44-0500 Diastolic blood pressure 90 mm[Hg] MARQUIS LOUISE [facility] 12-04-2024 08:44-0500 Heart rate 78 /min MARQUIS LOUISE [facility] 12-04-2024 08:44-0500 Systolic blood pressure 160 mm[Hg] MARQUIS LOUISE [facility] 11-30-2024 08:28-0500 Body height 182.9 cm Blaise Chicas DPM Work Phone: [facility] 11-30-2024 08:28-0500 Body mass index (BMI) [Ratio] 39.2 kg/m2 Blaise Chicas DPM Work Phone: [facility] 11-30-2024 08:28-0500 Body weight 131.09 kg Blaise Chicas DPM Work Phone: [facility] 11-30-2024 08:28-0500 Respiratory rate 16 /min Blaise Chicas DPM Work Phone: [facility] 11-02-2024 08:09-0500 Blood Pressure Location MARQUIS NKANSAH-AMANKRA [facility] 11-02-2024 08:09-0500 Diastolic blood pressure 67 mm[Hg] MARQUIS NKANSAH-AMANKRA [facility] 11-02-2024 08:09-0500 Heart rate 65 /min MARQUIS NKANSAH-AMANKRA [facility] 11-02-2024 08:09-0500 Systolic blood pressure 102 mm[Hg] MARQUIS NKANSAH-AMANKRA [facility] 09-14-2024 08:19-0400 Body height 182.9 cm Blaise Brown DPM Work Phone: [facility] 09-14-2024 08:19-0400 Body mass index (BMI) [Ratio] 39.2 kg/m2 Blaise Chicas DPM Work Phone: [facility] 09-14-2024 08:19-0400 Body weight 131.09 kg Blaise Chicas DPM Work Phone: [facility] 09-14-2024 08:19-0400 Diastolic blood pressure 79 mm[Hg] Blaise Chicas DPM Work Phone: [facility] 09-14-2024 08:19-0400 Heart rate 81 /min Blaise Chicas DPM Work Phone: [facility] 09-14-2024 08:19-0400 Systolic blood pressure 128 mm[Hg] Blaise Chicas DPM Work Phone: [facility] 08-08-2024 10:25-0400 Blood Pressure Location MARQUIS NKANSAH-AMANKRA [facility] 08-08-2024 10:25-0400 Diastolic blood pressure 82 mm[Hg] MARQUIS NKANSAH-AMANKRA [facility] 08-08-2024 10:25-0400 Systolic blood pressure 140 mm[Hg] MARQUIS NKANSAH-AMANKRA [facility] 08-03-2024 08:45-0400 Body height 182.9 cm Blaise Chicas DPM Work Phone: [facility] 08-03-2024 08:45-0400 Body mass index (BMI) [Ratio] 39.2 kg/m2 Blaise Chicas DPM Work Phone: [facility] 08-03-2024 08:45-0400 Body weight 131.09 kg Blaise Chicas DPM [facility] System 08-03-2024 08:45-0400 Diastolic blood pressure 82 mm[Hg] Blaise Chicas DPM Work Phone: [facility] 08-03-2024 08:45-0400 Heart rate 75 /min Blaise Chicas DPM Work Phone: [facility] 08-03-2024 08:45-0400 Respiratory rate 18 /min Blaise Chicas DPM Work Phone: [facility] 08-03-2024 08:45-0400 Systolic blood pressure 130 mm[Hg] Blaise Chicas DPM Work Phone: [facility] 08-01-2024 11:24-0400 Body height 182.9 cm Barrie Montoya MD Work Phone: [facility] 08-01-2024 11:24-0400 Body mass index (BMI) [Ratio] 39.2 kg/m2 Barrie Montoya MD Work Phone: [facility] 08-01-2024 11:24-0400 Body weight 131.09 kg Barrie Montoya MD Work Phone: [facility] 08-01-2024 11:24-0400 Diastolic blood pressure 93 mm[Hg] Barrie Montoya MD Work Phone: [facility] 08-01-2024 11:24-0400 Heart rate 73 /min Barrie Montoya MD Work Phone: [facility] 08-01-2024 11:24-0400 Systolic blood pressure 182 mm[Hg] Barrie Montoya MD Work Phone: [facility] 07-20-2024 08:27-0400 Body height 182.9 cm Blaise Chicas DPM Work Phone: [facility] 07-20-2024 08:27-0400 Body mass index (BMI) [Ratio] 26.04 kg/m2 Blaise Chicas DPM Work Phone: [facility] 07-20-2024 08:27-0400 Body weight 87.09 kg Blaise Chicas DPM Work Phone: [facility] 07-20-2024 08:27-0400 Diastolic blood pressure 81 mm[Hg] Blaise Chicas DPM Work Phone: [facility] 07-20-2024 08:27-0400 Heart rate 75 /min Blaise Chicas DPM Work Phone: [facility] 07-20-2024 08:27-0400 Respiratory rate 18 /min Blaise Chicas DPM Work Phone: [facility] 07-20-2024 08:27-0400 Systolic blood pressure 130 mm[Hg] Blaise Aviva DPM Work Phone: [facility] 07-06-2024 08:27-0400 Body height 182.9 cm Blaise Aviva DPM Work Phone: [facility] 07-06-2024 08:27-0400 Body mass index (BMI) [Ratio] 26.04 kg/m2 Blaise Chicas DPM Work Phone: [facility] 07-06-2024 08:27-0400 Body weight 87.09 kg Blaise Chicas DPM Work Phone: [facility] 07-06-2024 08:27-0400 Diastolic blood pressure 81 mm[Hg] Blaise Aviva DPM Work Phone: [facility] 07-06-2024 08:27-0400 Heart rate 77 /min Blaise Chicas DPM Work Phone: [facility] 07-06-2024 08:27-0400 Systolic blood pressure 128 mm[Hg] Blaise Chicas DPM Work Phone: [facility] 10-14-2023 14:33-0500 Diastolic blood pressure 70 mm[Hg] Nereyda Patricia [facility] 10-14-2023 14:33-0500 Mean blood pressure 93 mm[Hg] Nereyda Patricia [facility] 10-14-2023 14:33-0500 Systolic blood pressure 138 mm[Hg] Nereyda Patricia [facility] 10-14-2023 14:18-0500 Blood Pressure Location Nereyda Patricia [facility] 10-14-2023 14:18-0500 Body temperature 97.88 [degF] Nereyda Patricia [facility] 10-14-2023 14:18-0500 Diastolic blood pressure 73 mm[Hg] Nereyda Patricia [facility] 10-14-2023 14:18-0500 Heart rate 91 /min Nereyda Patricia [facility] 10-14-2023 14:18-0500 Systolic blood pressure 143 mm[Hg] Nereyda Patricia [facility] 10-01-2023 12:13-0500 Diastolic blood pressure 66 mm[Hg] Nereyda Patricia [facility] 10-01-2023 12:13-0500 Mean blood pressure 104 mm[Hg] Nereyda Patricia [facility] 10-01-2023 12:13-0500 Systolic blood pressure 179 mm[Hg] Nereyda Patricia [facility] 10-01-2023 12:10-0500 Blood Pressure Location Nereyda Patricia [facility] 10-01-2023 12:10-0500 Body temperature 98.42 [degF] Nereyda Patricia [facility] 10-01-2023 12:10-0500 Diastolic blood pressure 77 mm[Hg] Nereyda Patricia [facility] 10-01-2023 12:10-0500 Heart rate 81 /min Nereyda Patricia [facility] 10-01-2023 12:10-0500 Respiratory rate 14 /min Nereyda Patricia [facility] 10-01-2023 12:10-0500 Systolic blood pressure 168 mm[Hg] Nereyda Patricia [facility] 06-10-2023 10:43-0400 Diastolic blood pressure 64 mm[Hg] Nereyda Patricia [facility] 06-10-2023 10:43-0400 Heart rate 76 /min Nereyda Patricia [facility] 06-10-2023 10:43-0400 Respiratory rate 16 /min Nereyda Patricia [facility] 06-10-2023 10:43-0400 SaO2% (BldA) [Mass fraction] 95 % Nereyda Patricia [facility] 06-10-2023 10:43-0400 Systolic blood pressure 121 mm[Hg] Nereyda Patricia [facility] 04-13-2023 14:19-0400 Diastolic blood pressure 70 mm[Hg] Nereyda Patricia [facility] 04-13-2023 14:19-0400 Mean blood pressure 95 mm[Hg] Nereyda Patricia [facility] 04-13-2023 14:19-0400 Systolic blood pressure 146 mm[Hg] Nereyda Patricia [facility] 04-13-2023 14:15-0400 Blood Pressure Location Nereyda Patricia [facility] 04-13-2023 14:15-0400 Body temperature 97.7 [degF] Nereyda Patricia [facility] 04-13-2023 14:15-0400 Diastolic blood pressure 87 mm[Hg] Nereyda Joyametz [facility] 04-13-2023 14:15-0400 Heart rate 70 /min Nereydabruce JoyaPatricia [facility] 04-13-2023 14:15-0400 Systolic blood pressure 150 mm[Hg] Nereyda Joyametz [facility] 06-09-2022 10:02-0400 Body temperature 96.98 [degF] Nereyda Joyametz [facility] 06-09-2022 10:02-0400 Diastolic blood pressure 75 mm[Hg] Nereyda Joyametz [facility] 06-09-2022 10:02-0400 Heart rate 72 /min Nereydabruce JoyaPatricia [facility] 06-09-2022 10:02-0400 SaO2% (BldA) [Mass fraction] 97 % Nereyda Joyametz [facility] 06-09-2022 10:02-0400 Systolic blood pressure 139 mm[Hg] Nereydabruce JoyaPatricia [facility] 05-11-2022 11:30-0400 Diastolic blood pressure 102 mm[Hg] Bender SALAM [facility] 05-11-2022 11:30-0400 Heart rate 86 /min Bender SALAM [facility] 05-11-2022 11:30-0400 Respiratory rate 15 /min Bender SALAM [facility] 05-11-2022 11:30-0400 SaO2% (BldA) [Mass fraction] 95 % Bender SALAM [facility] 05-11-2022 11:30-0400 Systolic blood pressure 172 mm[Hg] Bender SALAM [facility] 05-11-2022 11:15-0400 Diastolic blood pressure 88 mm[Hg] Bender SALAM [facility] 05-11-2022 11:15-0400 Heart rate 86 /min Bender SALAM [facility] 05-11-2022 11:15-0400 Respiratory rate 18 /min Bender SALAM [facility] 05-11-2022 11:15-0400 SaO2% (BldA) [Mass fraction] 97 % Bender SALAM [facility] 05-11-2022 11:15-0400 Systolic blood pressure 170 mm[Hg] Bender SALAM [facility] 05-11-2022 11:10-0400 Diastolic blood pressure 108 mm[Hg] Bender SALAM [facility] 05-11-2022 11:10-0400 Heart rate 85 /min Bender SALAM [facility] 05-11-2022 11:10-0400 Respiratory rate 14 /min Bender SALAM [facility] 05-11-2022 11:10-0400 SaO2% (BldA) [Mass fraction] 97 % Bender SALAM [facility] 05-11-2022 11:10-0400 Systolic blood pressure 157 mm[Hg] Bender SALAM [facility] 05-11-2022 11:02-0400 Body temperature 97.34 [degF] Bender SALAM [facility] 05-11-2022 10:27-0400 Blood Pressure Location Bender SALAM [facility] 05-11-2022 10:23-0400 Blood Pressure Location Bender SALAM [facility] 05-11-2022 10:23-0400 Body temperature 98.24 [degF] Bender SALAM [facility] 03-31-2022 09:53-0400 Blood Pressure Location Nereyda Joyametz [facility] 03-31-2022 09:53-0400 Body temperature 97.7 [degF] Nereyda Gomez [facility] 03-31-2022 09:53-0400 Diastolic blood pressure 72 mm[Hg] Nereyda Joyametz [facility] 03-31-2022 09:53-0400 Heart rate 73 /min Nereyda Gomez [facility] 03-31-2022 09:53-0400 SaO2% (BldA) [Mass fraction] 96 % Nereydabruce JoyaPatricia [facility] 03-31-2022 09:53-0400 Systolic blood pressure 129 mm[Hg] Nereydabruce JoyaPatricia [facility] Encounters Encounter Date Encounter Type Care Provider Facility Start: 06-11-2025 ambulatory LU Sweet SHARA Rick ty:[facility] Start: 01-03-2025 End: 01-03-2025 ambulatory RUTHIE BISHOP PAIUTE [facility] Start: 12-14-2024 End: 12-14-2024 ambulatory CLARIBEL CISNEROS [facility] Start: 12-04-2024 End: 12-04-2024 ambulatory MARQUIS ROANEELAEMMYMadeleineDAYSI Facility:[facility] Start: 12-04-2024 End: 12-04-2024 Patient encounter procedure MARUQIS NEELY-DAYSI [facility] Start: 11-30-2024 End: 11-30-2024 Bamboo flowsheet Blaise [...] diabetic polyneuropathy, unspecified whether chcf insulin use ([facility]); Pain due to onychomycosis of toenails of both feet Start: 11-30-2024 End: 11-30-2024 ambulatory BLAISE CHICAS Not Available Start: 11-06-2024 End: 11-06-2024 ambulatory Mejia SINGH Facility:[facility] Start: 11-06-2024 End: 11-06-2024 Patient encounter procedure Mejia SINGH [facility] Start: 11-02-2024 End: 11-02-2024 ambulatory MARQUIS NKANSAH-AMANKRA Facility:[facility] [place] Start: 11-02-2024 End: 11-02-2024 Patient encounter procedure MARQUIS NKANSAH-AMANKRA [facility] Start: 10-30-2024 End: 10-30-2024 ambulatory Mejia SINGH Facility::[id number] Start: 10-25-2024 End: 10-25-2024 ambulatory MARQUIS NKANSAH-AMANKRA Facility:[facility] Start: 10-23-2024 End: 10-23-2024 ambulatory MARQUIS NKANSAH-AMANKRA Facility:[facility] Start: 10-23-2024 End: 10-23-2024 Patient encounter procedure MARQUIS JANINAANSAH-AMANKRA [facility] Start: 10-02-2024 End: 10-02-2024 ambulatory MARQUIS NKANSAH-AMANKRA Facility:[facility] [place] Start: 09-25-2024 End: 09-25-2024 ambulatory MARQUIS NKANSAH-AMANKRA Facility:[facility] Start: 09-25-2024 End: 09-25-2024 Patient encounter procedure MARQUIS JANINAANSAH-AMANKRA [facility] Start: 09-14-2024 End: 09-14-2024 Bamboo flowsheet Blaise [...] underlying condition with diabetic polyneuropathy, unspecified whether buttermaker insulin use ([facility]); Pain due to onychomycosis of toenails of [...] RODNEY JOY Not Available Start: 08-22-2024 ambulatory [facility] Facility:[facility] Start: 08-17-2024 [facility] Start: 08-14-2024 End: 08-17-2024 Telephone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 history of Atrial fibrillation ([facility]), CHF (congestive heart failure) ([facility]), Chronic kidney disease, COPD (chronic obstructive pulmonary disease) ([facility]), Coronary artery disease, Diabetes mellitus ([facility]), Heart valve disease, Hypertension, Pericardial effusion, and Sleep apnea. History of paroxysmal atrial fibrillation maintained on anticoagulation with Eliquis, aortic stenosis, renal artery stenosis, and hypertension. He had stenting of the left renal artery from the left radial approach on 05/01/2015 (Express SD 6 mm x 18 mm stent). He was admitted to the [facility] in August 2022 due to hyponatremia, [...] cholecalciferol (Vitamin D3) 25 (more content not included)...[facility]07-22-2024 [place]UT Cardiology - [facility] Subjective Nadir Beth is a [...] therapy. He was admitted to the [facility] in August 2022 due to hyponatremia, hyperkalemia and acute kidney injury, leukocytosis secondary to COVID-19 causing dehydration. I saw him on 05/24/2023 and the office and he had significant evidence of volume overload by exam and echocardiogram. I intensified his diuretic regimen. He ended up getting admitted to the [facility] with acute heart failure exacerbation and [...] o (more content not included)... [facility]04-19-2024 NoteUT Cardiology - [facility] Subjective Nadir Beth is a [...] edema. He was admitted to the [facility] in August 2022 due to hyponatremia, hyperkalemia and acute kidney injury, leukocytosis secondary to COVID-19 causing dehydration. I saw him on 05/24/2023 and the office and he had significant evidence of volume overload by exam and echocardiogram. I intensified his diuretic regimen. He ended up getting admitted to the [facility] with acute heart failure exacerbation and [...] tenderness. Musculoskeletal: General: N (more content not included)...[facility] 10-14-2023 Hospital Discharge instructions Patient Education [...] go. Do not hold it in. Take jtwb-koe-slyogso and prescription medicines only as told by [...] to keep your urine pale yellow. Take iclv-uic-sovmhnk and prescription medicines only as told by your health care provider. This includes any fiber supplements. This information is not intended to replace advice given to you by your health care provider. Make sure you discuss any questions you have with your health care provider. Document Revised: 09/18/2020 Document Reviewed: 09/18/2020 [employer] Patient Education 2022 [employer]. Follow Up Care 10/01/2023 12:57:46 With:Nereyda Gomez CNP Address: When:1 month [facility] 11-17-2023 Hospital Discharge instructions [...] Bulgur wheat. Millet. Quinoa. Bran muffins. Popcorn. [place] wafer crackers. Meats and other proteins [place] beans, kidney beans, and mendez beans. Soybeans. [...] Cream cheese. Sour cream. Fats and oils Makena. Beverages Soft drinks. Other foods Cakes and [...] provider. Document Revised: 03/06/2021 Document Reviewed: 03/06/2021 [employer] Patient Education 2022 [employer]. Follow Up Care 09/20/2023 08:43:45 With:Nereyda Gomez CNP Address:Unknown When: Unknown [facility] 11-17-2023 Evaluation + Plan note Future Scheduled Tests Laboratory* CBC w/ Auto Diff 10/01/23 * Comprehensive Metabolic Panel 10/01/23 * Thyroid Stimulating Hormone 10/01/23 [facility] 07-27-2023 Hospital Discharge instructions Patient Education 06/10/2023 [...] hard liquor (44 mL). General instructions Take fskg-zvq-hyjdnkq and prescription medicines only as told by [...] provider. Document Revised: 02/19/2021 Document Reviewed: 02/19/2021 [employer] Patient Education 2022 [employer] Follow Up Care 04/13/2023 14:39:27 With:Nereyda Gomez CNP Address: When:3 months [facility] 05-30-2023 Hospital Discharge instructions [...] including vitamins, herbs, eye drops, creams, and lfye-bdb-sfyryyr medicines. Any problems you or family members [...] provider tells you to take them. Taking czpn-zsf-utpwryc medicines, vitamins, herbs, and supplements. General instructions [...] provider. Document Revised: 10/26/2022 Document Reviewed: 06/24/2022 [employer] Patient Education 2022 [employer]. Follow Up Care 04/09/2023 11:27:16 With:Nereyda Gomez CNP Address: When:1 month [facility] 09-03-2022 NoteEXAM: US CHANI [...] Electronically authenticated by: PREETI ROBERTS Date: 2022-07-18 09:05[facility]07-26-2022 Hospital Discharge instructions Patient Education 06/09/2022 10:13:38 [...] Bulgur wheat. Millet. Quinoa. Bran muffins. Popcorn. [place] wafer crackers. Meats and other proteins [place], kidney, and mendez beans. Soybeans. Split peas. [...] Cream cheese. Sour cream. Fats and oils Makena. Beverages Soft drinks. Other foods Cakes and [...] 11/01/2006 Document Revised: 09/05/2018 Document Reviewed: 09/05/2018 [employer] Patient Education 2020 [employer]. 06/09/2022 10:13:34 Hemorrhoids Hemorrhoids Hemorrhoids are swollen [...] 3 times a day. General instructions Take qook-lbm-aeibpfo and prescription medicines only as told by [...] 10/29/2001 Document Revised: 03/29/2020 Document Reviewed: 03/23/2019 [employer] Patient Education 2020 [employer]. 06/09/2022 10:13:31 Diverticulosis Diverticulosis Diverticulosis is a [...] overweight. Not getting enough exercise. Smoking. Taking ntec-ddp-ulheqni pain medicines, like aspirin and ibuprofen. Having [...] if your health care provider approves. Take ihln-iri-dzzicyy and prescription medicines only as told by [...] 07/29/2005 Document Revised: 10/14/2018 Document Reviewed: 09/20/2017 [employer] Patient Education 2020 [employer]. 06/09/2022 10:13:30 Colon Polyps Colon Polyps Polyps [...] 07/28/2005 Document Revised: 02/16/2019 Document Reviewed: 02/16/2019 [employer] Patient Education 2020 [employer]. Follow Up Care 05/13/2022 14:18:17 With:Nereyda Gomez CNP Address: When:1 year only if needed [facility] [id number] Evaluation + Plan noteExtracted from: Title:Anesthesia post op endo Author:Jeffrey Gr MD Date:05/11/22 Plan Transfer/ Discharge: Patient can be discharged from PACU when criteria met. Condition good. Extracted from: Title:Anesthesia Pre-Op endo 2 Author:Jeffrey Gr MD Date:05/11/22 Plan [place] [employer] Anesthesiologists (ASA) physical status classification: [...] heart and lungs, allergic reactions, and .. [facility]06-27-2022 Hospital Discharge instructions Patient Education 05/11/2022 [...] 07/28/2005 Document Revised: 02/16/2019 Document Reviewed: 02/16/2019 [employer] Patient Education 2020 [employer]. 05/11/2022 11:13:39 Diverticulosis MAGR (CUSTOM) Diverticulosis Many [...] unsweetened, w/added ascorbic acid 1 cup 0.5 Ava 1 cup 0.7 Vegetables Cooked Green beans 1 cup 4.0 Carrots 1/2 cup sliced 2.3 Peas 1 cup 8.8 Potato (baked, with skin) 1 medium potato 3.8 Raw [place] (with peel) 1 cucumber 1.5 Lettuce 1 [...] Reference. Available at http://www.nal.usda.gov/fnic/foodcomp/search/. Information adapted from: [facility] Patient Information 2009 [employer]. [employer] 2012 http://www.[employer] acquired by [employer] Electric/contents/cxngpvamqjcy-gzpllii-wyhhll-the-basics Follow Up Care 03/31/2022 10:27:32 With:Napoleon NOVA Address: [address] [place], [place] [address]dict Evie. [address] [place] [address] Business (1) When: Unknown Comments:office will call for follow up [facility]05-17-2022 Hospital Discharge instructions Patient Education 03/31/2022 [...] including vitamins, herbs, eye drops, creams, and [id number] medicines. Any problems you or family members [...] 10/29/2001 Document Revised: 08/24/2018 Document Reviewed: 01/12/2017 [employer] Patient Education 2020 [employer]. Follow Up Care 03/23/2022 12:11:50 With:Nereyda Gomez CNP Address: When:1 month [facility] Evaluation + Plan note Future Appointments Appointment Date:05/25/2022 08:45:00 AM Scheduled Provider: Location:[facility] Appointment Type:Surgery FT [facility] Evaluation + Plan note Future Appointments Appointment Date:06/10/2023 10:40:00 AM Scheduled Provider:Nereyda Gomez CNP Location:[facility] Appointment Type:[facility] Follow Up Future Scheduled Tests Laboratory* Fecal WBC Lactoferrin 04/13/23 * Giardia lamblia, Direct Detection EIA 04/13/23 * O & P Exam, Routine 04/13/23 * Clostridium Difficile PCR 04/13/23 * Enteric Panel by PCR 04/13/23 [facility] Evaluation + Plan note Future Appointments Appointment Date:06/10/2023 10:40:00 AM Scheduled Provider:Nereyda Gomez CNP Location:[facility] Appointment Type:[facility] Follow Up Diagnostic Tests Pending * O & P Exam, Routine 04/15/23 * Giardia lamblia, Direct Detection EIA 04/15/23 [facility] Future Appointments Appointment Date:09/13/2023 10:40:00 AM Scheduled Provider:Nereyda Gomez CNP Location:[facility] Appointment Type:BAD Follow Up [facility] Evaluation + Plan note Future Appointments Appointment Date:10/14/2023 02:20:00 PM Scheduled Provider:Nereyda Gomez CNP Location:[facility] Appointment Type:[facility] Follow Up Future Scheduled Tests Laboratory* CBC w/ Auto Diff 10/01/23 * Comprehensive Metabolic Panel 10/01/23 * Thyroid Stimulating Hormone 10/01/23 [facility] Evaluation + Plan note Future Appointments Appointment Date:12/09/2023 02:00:00 PM Scheduled Provider:Nereyda Gomez CNP Location:[facility] Appointment Type:[facility] Follow Up Future Scheduled Tests Laboratory* CBC w/ Auto Diff 10/01/23 * Comprehensive Metabolic Panel 10/01/23 * Thyroid Stimulating Hormone 10/01/23 [facility] Evaluation + Plan note Future Appointments Appointment Date:10/26/2024 09:30:00 AM Scheduled Provider: Location:[facility] Appointment Type:URO Nurse Visit Appointment Date:12/04/2024 08:40:00 AM Scheduled Provider:MARQUIS LOUISE MD Location:[facility] Appointment Type:URO Office Visit Future Scheduled Tests Laboratory* CBC w/ Auto Diff 10/01/23 * Comprehensive Metabolic Panel 10/01/23 * Thyroid Stimulating Hormone 10/01/23 [facility] Evaluation + Plan note Future Appointments Appointment Date:11/06/2024 09:00:00 AM Scheduled Provider: Location:[facility] Appointment Type:URO Nurse Visit Appointment Date:12/04/2024 08:40:00 AM Scheduled Provider:MARQUIS LOUISE MD Location:[facility] Appointment Type:URO Office Visit Future Scheduled Tests Laboratory* CBC w/ Auto Diff 10/01/23 * Comprehensive Metabolic Panel 10/01/23 * Thyroid Stimulating Hormone 10/01/23 [facility] Evaluation + Plan note Future Appointments Appointment Date:12/04/2024 08:40:00 AM Scheduled Provider:MARQUIS LOUISE MD Location:[facility] Appointment Type:URO Office Visit Future Scheduled Tests Laboratory* CBC w/ Auto Diff 10/01/23 * Comprehensive Metabolic Panel 10/01/23 * Thyroid Stimulating Hormone 10/01/23 [facility] evaluation + Plan note Future Appointments Appointment Date:06/11/2025 11:40:00 AM Scheduled Provider:LU OLMEDO PA-C Location:[facility] Appointment Type:URO Office Visit Future Scheduled Tests Laboratory* CBC w/ Auto Diff 10/01/23 * Comprehensive Metabolic Panel 10/01/23 * Thyroid Stimulating Hormone 10/01/23 [facility] Evaluation note* Diagnosis Melanocytic nevus of trunk- Primary Benign neoplasm of skin of trunk, except scrotum Actinic keratosis Lentigines Seborrheic keratosis documented in this encounter [facility]* Diagnosis Benign essential tremor- Primary [...] underlying condition with diabetic polyneuropathy, unspecified whether buttermaker insulin use (CMS/HCC) Pain due to onychomycosis of toenails of both feet documented in this encounter [facility] Healthcare[facility] note* Diagnosis Xerosis cutis- Primary Other specified disease of sebaceous glands Verruca plantaris Plantar wart Foot pain, right Pain in soft tissues of limb Diabetes mellitus due to underlying condition with diabetic polyneuropathy, unspecified whether chcf insulin use (CMS/HCC) Onychomycosis Dermatophytosis of nail Toe pain, bilateral documented in this encounter [facility] HealthcareEvaluation note* Diagnosis Verruca plantaris- Primary Plantar wart Foot pain, right Pain in soft tissues of limb Xerosis cutis Other specified disease of sebaceous glands documented in this encounter [facility] HealthcareEvaluation note* Diagnosis Neurogenic pain- Primary Benign essential tremor Essential and other specified forms of tremor documented in this encounter [facility] HealthcareEvaluation note* Diagnosis Benign essential tremor- Primary [...] of both feet documented in this encounter [facility] course Narrative No data available for this section [facility] Discharge instructions No data available for this section [facility] No data available for this section [facility] Summary Purpose Family History No Family [...] and content) DATE CREATED AUTHOR 02/09/[address] [facility] DATE CREATED AUTHOR AUTHOR'S ORGANIZ ATION 03/28/2023 [facility] DATE CREATED AUTHOR AUTHOR'S ORGANIZ ATION 12/03/2024 [facility] EPIC DATE CREATED AUTHOR AUTHOR'S ORGANIZ ATION 12/06/2024 [facility] DATE CREATED AUTHOR AUTHOR'S ORGANIZ ATION 01/10/[address] [facility] Care Team (unrecognized sect ion and content) Catheterization Laboratory Technician Relationship Specialty Start Date End Date Pj Youssef MD [address] [place] [address] PCP - General Family Medicine 12/02/23 Catheterization Laboratory Technician Relationship Specialty Start Date End Date Pj Youssef MD [address] [place] [address] PCP - General Family Medicine 12/02/23 Catheterization Laboratory Technician Relationship Specialty Start Date End Date Pj Youssef MD [address] [place] [address] PCP - General Family Medicine 12/02/23 Catheterization Laboratory Technician Relationship Specialty Start Date End Date Pj Youssef MD [address] [place] [address] PCP - General Family Medicine 12/02/23 Catheterization Laboratory Technician Relationship Specialty Start Date End Date Pj Youssef MD [address] [place] [address] PCP - General Family Medicine 12/02/23 Catheterization Laboratory Technician Relationship Specialty Start Date End Date Pj Youssef MD [address] [place] [address] PCP - General Family Medicine 12/02/23 Catheterization Laboratory Technician Relationship Specialty Start Date End Date Pj Youssef MD [address] [place] [address] PCP - General Family Medicine 12/02/23 Catheterization Laboratory Technician Relationship Specialty Start Date End Date Pj Youssef MD [address] [place] [address] PCP - General Family Medicine 12/02/23 Catheterization Laboratory Technician Relationship Specialty Start Date End Date Pj Youssef MD [address] [place] [address] PCP - General Family Medicine 12/02/23 Catheterization Laboratory Technician Relationship Specialty Start Date End Date Pj Yousesf MD [address] [place] [address] PCP - General Family Medicine 1/18/24 Reason [...] BE BASED ON THE PRIMARY CLINICAL RECORDS. [employer] provides no warranty or guarantee of the accuracy or completeness of information in this document.
--- NOTE | 2025-02-14 06:43 | MR_ITS ---
The [address] [address] Patient Name: NADIR HEREDIA MRN: [id number] date: 1940 Sex: M Assigned Patient Location: MRI Current Patient Location: MRI Accession/Order Number: [id number] Exam Date: 02/14/2025 08:47 Report Date: 02/14/2025 09:20 At the request of: VAN YOUSSEF MD Procedure: MR head/brain wo con EXAMINATION: MRI OF THE BRAIN WITHOUT CONTRAST CLINICAL HISTORY: altered mental status R41.82 COMPARISON: CT 09/08/2024 TECHNIQUE: Multiecho, multiplanar imaging of the brain was performed without enhancement. There is generalized atrophy. The ventricles are normal in size and position. Patchy increased T2 and FLAIR signal is visualized within the periventricular white matter compatible with chronic microvascular disease. There are also additional small areas of increased T2 and FLAIR signal at the dacosta radiata and splenium of the corpus callosum on the right as well as inferior to the frontal horn of the left lateral ventricle. These areas have associated restricted diffusion compatible with recent small vessel infarcts. There are no additional areas of abnormal signal intensity or restricted diffusion elsewhere within the supra- or infratentorial brain. No midline abnormalities are noted. There are no extra-axial collections or mass effect. There is minimal ethmoid mucosal thickening. MR/MR head/brain wo con IMPRESSION: GENERALIZED ATROPHY. SMALL VESSEL ISCHEMIC CHANGE INCLUDING RECENT WHITE MATTER INFARCTS, DESCRIBED. Impression dictated by: Radha Wright M.D.02/14/2025 9:20 AM Dictation Location: [place] [address] Electronically authenticated by: [id number] Y Date: 02/14/2025 09:20
== END 2025-02-14 06:40 | disposition home or self-care (01) ==
LOC: MRI 06:39
PROVIDERS: PCP Family Medicine; Visit Provider Family Medicine
DX: R41.82 Altered mental status, unspecified (principal); I67.82 Cerebral ischemia
CPT/HCPCS: 70544; 70547; 70551

== ENCOUNTER 2025-02-14 09:36 | Inpatient (IN) | payer MEDICARE, SELFPAY ==
[2025-02-14] VITALS (11 sets, daily range): BP systolic 123–184; BP diastolic 58–81; PULSE 65–88; TEMP 36.5–36.7; O2SAT 90–96; BMI 24.8; BMI 24.4; BMI 24.7
--- OUTSIDE RECORDS SUMMARY | 2025-02-14 09:43 | XMS_ITS | CCD ---
Author Organization [facility] Care Team Providers Care Trustee Of Estate Name Role Phone PHYSICIAN, DEFAULT Admitting Unavailable PHYSICIAN, DEFAULT Attending Unavailable PJ YOUSSEF Primary Care Unavailable Pj Youssef Primary Care Physician [phone] HOY ., DR ARAUJO Primary Care Unavailable HOY ., DR ARAUJO Consulting Unavailable HOY ., DR ARAUJO Attending Unavailable HOY ., DR ARAUJO Admitting Unavailable ZIEBER, DR CLOVER Zimmer Consulting Unavailable [place], DR CRAMER Consulting Unavailable HOY ., DR ARAUJO Primary Care Unavailable [place], DR CRAMER Attending Unavailable [place], DR CRAMER Admitting Unavailable [place], DR CRAMER Consulting Unavailable HOY ., DR ARAUJO Primary Care Unavailable [place], DR CRAMER Attending Unavailable [place], DR CRAMER Admitting Unavailable HOY ., DR ARAUJO Consulting Unavailable HOY ., DR ARAUJO Primary Care Unavailable HOY ., DR ARAUJO Attending Unavailable HOY ., DR ARAUJO Admitting Unavailable [place], DR CRAMER Consulting Unavailable HOY ., DR ARAUJO Primary Care Unavailable [place], DR CRAMER Attending Unavailable [place], DR CRAMER Admitting Unavailable HOY ., DR [...] Pineda GUSTAFSON, Pj Fernandez Primary Care Provider [phone] BARRIE MONTOYA Attending Unavailable BLAISE CHICAS Attending [...] CISNEROS Attending Unavailable JEFF REYES Attending Unavailable PRIBILOF ISLANDSRUTHIE Attending Unavailable RUTHIE LINDA Attending Unavailable Allergies Allergy Classification Reported Allergen(s) Allergy Type Date of Onset Reaction(s) Facility (20 sources) Aminolevulinic Acid; Translations: [aminolevulinic acid] Drug Allergy 11-04-20 13 Unknown [facility] Repository (1 source) NITRO PATCH; Translations: [NITRO PATCH] Propensity to adverse reactions (disorder) 03-18-20 12 [facility] Repository (18 sources) Contrast media; Translations: [Contrast Dye] Drug allergy Unknown (qualifier value) [facility] (20 sources) Hmg-Coa Reductase Inhibitors (Statins); Translations: [statins] Allergy to substance 08-24-20 23 Unknown [facility] (20 sources) Nitroglycerin; Translations: [nitroglycerin] Drug Allergy 02-23-20 22 Unknown (qualifier value) [facility] (2 sources) black walnut pollen extract; Translations: [QIINUBY-HSF-FTI REDUCTASE INHIBITORS] Drug Allergy 04-21-20 17 [facility] Repository (1 source) Iodine (And Iodine Containting Drugs) Drug allergy (disorder) 05-28-20 16 [facility] Repository (20 sources) Nitroglycerin Allergy to substance 02-23-20 22 [facility] (20 sources) Iodinated Contrast Media; Translations: [IODINATED CONTRAST MEDIA] Drug Allergy 07-17-20 22 [facility] (4 sources) Simvastatin; Translations: [simvastatin] Drug Allergy elevated liver enzymes [facility] (1 source) Aminolevulinic Acid; Translations: [aminolevulinic acid] Drug Allergy 11-04-20 13 [facility] Repository (1 source) Nitroglycerin; Translations: [Nitroglycerin Patch] Drug Allergy [facility] Repository Medications Current Medications Medication Drug Class(es) Dates Sig (Normalized) Sig (Original) acetaminophen 325 mg / HYDROcodone bitartrate 5 mg oral tablet (4 sources) Opioid Agonist Start: 10-16-2024 take 1 tablet by mouth every six hours as needed for pain, then take 2 tablets by mouth every six hours as needed for pain Bridge[place] 325 mg-5 mg oral tablet 1 tab(s), [...] take 1 tablet by mouth in the or rning glimepiride (Amaryl) 4 MG tablet Take [...] Date: 01/09/19 Status: Ordered 60 actuat tiotropium 0.42677 mg/actuat inhalation spray (16 sources) Anticholinergic Start: [...] Discontinued Start: 08-28-2020 take 1 capsule by [facility] once daily Align 4 mg oral capsule 4 mg = 1 cap(s), Oral, Daily, Take after completing the Antibiotics course, # 28 cap(s), Refills(s) 0, [id number], cm, 08/28/20 12:05:00 EDT, [...] # 160 cap(s), Refills(s) 1, [id number], cm, 08/28/20 12:05:00 EDT, [...] disease (2 sources) Atherosclerotic heart disease of [place] coronary artery without angina pectoris; Translations: [Atherosclerotic heart disease of [place] coronary artery without angina pectoris] Onset: 12-14-2024 [...] sources) Long-term current use of anticoagulant; Translations: [shelter (current) use of anticoagulants] Onset: 08-08-2024 Episodic [...] Onset: 04-30-2022 Episodic Other aftercare (1 source) shelter (current) use of aspirin; Translations: [NURSING HOME CURRENT USE OF ASPIRIN] Onset: 08-27-2022 Episodic Other aftercare (1 source) shelter (current) use of anticoagulants; Translations: [ANIMATION PRODUCER CURRNT USE ANTICOAGULANTS] Onset: 08-27-2022 Episodic Other aftercare (1 source) Other group home (current) drug therapy; Translations: [OTH ANIMATION PRODUCER CURRENT DRUG THERAPY] Onset: 08-27-2022 Episodic Other [...] Interpretation Reference Range Facility Follow-Upon 01-03-2025 Follow-Up [id number] Nadir Beth 1940 M Date Provider Department Center 01/03/2025 [facility] Comprehensiv Family History Problem Relation Age of Onset Coronary artery disease Father Family Status - Relation Status Age at Father Level of Service:03204 ID OFFICE/OUTPATIENT ESTABLISHED MOD MDM 30 MIN () Reason for Visit and Comments: Follow-up [120704] [facility] Office Visiton 12-14-2024 Follow-up visit [id number] KiritNadir L 1940 M Date Provider Department Center 12/14/2024 CLARIBEL VILLALOBOS MILKA Dominguez [facility] Family History Problem Relation Age of Onset Coronary artery disease Father Family Status - Relation Status Age at Father Level of Service:57444 ID OFFICE/OUTPATIENT ESTABLISHED MOD MDM 30 MIN [facility] Ambulatory Visit Summaryon 0 12-04-2024 Ambulatory [...] This Is Your Medications List acetaminophen-hydrocod one ([place] 325 mg-5 mg oral tablet) ciprofloxacin (Cipro [...] HENDERSON, LU Sweet Where: [facility] [address] [place] [address] [place] [address]- You Need to Schedule the Following Appointments Follow Up with ADRIAN GUSTAFSON, ADAN CHO When: In 6 months Comments: Can see DIAMANTE, w/PVR Where: Medications What How Much When Why Instructions Unchanged acetaminophen-hydrocod one ([place] 325 mg-5 mg oral tablet) 1 Tablets [...] concerns Uncha (more content not included)... [facility] Urology Office/Clinic Noteon 12-04-2024 Urology Office/Clinic Note [...] out of his penis. Pt presented to [facility] ER 10/28/24 due to clot [...] 7. 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) Pt presented to [facility] ER 08/06/24 with redness on [...] penis. -Cont symptomatic monitoring 8. Anticoagulated (Z79.01: shelter (current) use of anticoagulants) Taking Eliquis, has restarted since UroLift. Hx of cardioversion. Increased risk for bleeding. Elevated r (more content not included)... [facility] Comment on above: Result Comment: Elec [...] Is Your Medications List NIFEdipine acetaminophen-hydrocod one ([place] 325 mg-5 mg oral tablet) acyclovir apixaban [...] LOUISE MD Where: [facility] [address], [address] [place] [address]- Medications What How Much When Why Instructions Unchanged acetaminophen-hydrocod one ([place] 325 mg-5 mg oral tablet) 1 Tablets [...] survey v (more content not included)... [facility] Ambulatory Visit Summaryon 1 01-03-2024 Ambulatory Visit Summary Ambulatory Visit Summary NADIR BETH :1940 Visit Date:11/02/2024 Ambulatory Visit Instructions Your Diagnosis BPH with urinary obstruction Gross hematuria Incomplete bladder emptying OAB (overactive bladder) Acquired buried penis Balanitis Anticoagulated Your Care Team Attending Physician - ADRIAN GUSTAFSON, MARQUIS Primary Care Physician - Pj Youssef MD This Is Your Medications List acetaminophen-hydrocod one ([place] 325 mg-5 mg oral tablet) ciprofloxacin (Cipro [...] AM EST With: Where: [facility] [address] [place] [address] [place] [address]- Wednesday 8:40 AM EST With: MARQUIS LOUISE MD Where: [facility] [address], [address] [place] [address]- You Need to Schedule the Following Appointments Follow Up with ADRIAN GUSTAFSON, ADAN CHO When: Where: Medications What How Much When Why Instructions Unchanged acetaminophen-hydrocod one ([place] 325 mg-5 mg oral tablet) 1 Tablets [...] or co (more content not included)... [facility] Urology Office/Clinic Noteon 11-02-2024 Urology Office/Clinic Note Urology Office/Clinic Note Chief Complaint er f/u HPI Staff 84 year old male here for [facility] ER F/U, difficulty urinating. Bladder [...] with voice recognition artificial intelligence software, specifically [employer], [employer] and or [employer]. Substitutions may have occurred due to the [...] out of his penis. Pt presented to [facility] ER 10/28/24 due to clot [...] 6. 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) Pt presented to [facility] ER 08/06/24 with redness on [...] penis. -Cont symptomatic monitoring 7. 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 Hx of cardioversion. Increased risk for bleeding. Elevated risk for periop complications. Patient underwent a UroLift procedure approximately a week and a half ago. Unfortunately, he developed gross hematuria with clot retention that required hand irrigation with a three-way Palomares catheter. He presents today for an (more content not included)... [facility] Comment on above: Result Comment: Elec [...] Is Your Medications List NIFEdipine acetaminophen-hydrocod one ([place] 325 mg-5 mg oral tablet) acyclovir apixaban [...] LOUISE MD Where: [facility] [address] [place] [address]- Medications What How Much When Why Instructions Unchanged acetaminophen-hydrocod one ([place] 325 mg-5 mg oral tablet) 1 Tablets [...] emptying Naus (more content not included)... [facility] Inpatient Patient Summaryon 10-23-2024 Inpatient Patient Summary Inpatient Patient Summary [place] [address] Clinical Summary Person Information Name: NADIR BETH Age: 84 Years : 1940 Sex: Male PCP: Pj Youssef MD Marital Status: Race: White Ethnicity: Non- or Language: Occitan Visit Id: Visit Reason: BPH WITH URINARY OBSTRUCTION, INCOMPLETE BLADDER EMPTYING Speciality: Acuity: Enc Type: Outpatient Med Service: Surgery Arrival: 10/23/2024 13:48:15 Discharge: Dispo Type: Address: [address] [facility] [id number] Provider Notes: Diagnosis: Problems Active BPH with [...] This Visit Final Med List: acetaminophen-hydrocod one ([place] 325 mg-5 mg oral tablet) 1 Tablets [...] Patient Education Information: Benign Prostatic Hyperplasia [facility] Main OR Intraoperative Recor don 10-23-2024 Main OR Intraoperative Record Main OR Intraoperative Record IntraOp Document Type FTURO Summary Primary Physician: MARQUIS LOUISE MD Finalized Date/Time: 10/23/24 15:03:19 Pt. Name: NADIR BETH /Sex: 1940 Male Med Rec #: [id number] Physician: MARQUIS LOUISE MD Financial #: [id number] Pt. Type: O Room/Bed: / Admit/Disch: 10/23/24 [...] 3 Case Attendee ADRIAN GUSTAFSON, Oliva Goel [facility], Ana CHO Role Performed Surgeon - Primary Tailercpa - Primary Scrub - Primary Time In [...] Implant Implant Identification Description UROLIFT Lot Number [id number] Pharmacist Intern [employer]IFT Catalog ???# [id number] Expiration Date 11/30/25 [...] Oliva Goel (more content not included)... [facility] Main OR Preoperative Recordo n 10-23-2024 Main OR Preoperative Record Main OR Preoperative Record Holding Area Document Type FTURO Summary Primary Physician: MARQUIS LOUISE MD Finalized Date/Time: 10/23/24 14:17:30 Pt. Name: KIRITNADIR/Sex: 1940 Male Med Rec #: [id number] Physician: MARQUIS LOUISE MD Financial #: [id number] Pt. Type: O Room/Bed: / Admit/Disch: 10/23/24 [...] Complaints of Pain: No Skin Integrity Intact, [place], Warm, & Dry Vitals - EU Blood Pressure 152/78 Pulse 84 bpm Respirations 18 br/min SPO2 90 % Additional None RN Reviewed Yes Specimens Collected Last Modified By: Oliva Goel 10/23/24 14:17:29 Finalized By: Oliva Goel Document Signatures Signed By: Preeti Kaur LPN 10/23/24 14:05 Oliva Goel 10/23/24 14:17 [facility] Operative Reporton 4 Operative Report Operative [...] urethral meatus. We then placed the 20 Faroese cystoscope into the bladder. Bilobar hyperplasia was [...] able to easily navigate with a 20 Faroese scope. Scope was then removed and an 18 Faroese Palomares catheter was placed with return of light pink urine and no clots noted. This concluded the procedure. Patient was then transferred to PACU in stable condition. PLAN: Patient will follow-up in 2 days for Palomares catheter removal. 10 cc in the balloon Follow-up in 6 to 8 weeks with IPSS at that time [facility] Comment on above: Result Comment: Elec tronically Signed By: MARQUIS LOUISE MD\.br\Date and Time Signed: 10/23/24 15:06 EST Outpatient Surgery Discharge Instructionon 10-23-2024 Outpatient Surgery Discharge Instruction Outpatient Surgery Discharge Instruction [place] [address] Patient Discharge Instructions PERSON INFORMATION Name: NADIR [...] amount of (more content not included)... [facility] Ambulatory Visit Summaryon 1 12-02-2023 Ambulatory [...] Survey Yo (more content not included)... [facility] Ambulatory Visit Summary Ambulatory Visit Summary [...] for (more content not included)... [facility] Urology Office/Clinic Noteon 10-02-2024 Urology Office/Clinic [...] with voice recognition artificial intelligence software, specifically [employer], [employer]ou and or [employer]. Substitutions may have occurred due to the [...] -Cipro 500mg bid start the day prior, [place] 325-5mg #2 q6hrs as needed for pain, [...] 3. 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) Pt presented to [facility] ER 08/06/24 with redness on [...] and Lasix. -Dm control 6. Anticoagulated (Z79.01: shelter (current) use of anticoagulants) Taking Eliquis. Hx of cardioversion. Elevated risk for periop complications. Based on patient's age, multiple medical comorbidities and his prostate size we discussed extensively that he will benefit most likely from a UroLift procedure. He is amenable to (more content not included)... [facility] Comment on above: Result Comment: Elec tronically Signed By: MARQUIS LOUISE MD\.br\Date and Time Signed: 10/02/24 11:43 EST\.br\Electronically Co-Signed By: Roxy Gatica\.br\Date and Time Co-Signed: 10/02/24 11:21 EST\.br\Electronically Co-Signed By: Roxy Gatica\.br\Date and Time Co-Signed: 10/02/24 11:22 EST\.br\Electronically Co-Signed By: Roxy Gatica\.br\Date and Time Co-Signed: 10/02/24 11:23 EST Inpatient Patient Summaryon 09-25-2024 Inpatient Patient Summary Inpatient Patient Summary [place] [address] Clinical Summary Person Information Name: NADIR BETH Age: 84 Years : 1940 Sex: Male PCP: Pj Youssef MD Marital Status: Race: White Ethnicity: Non- or Language: Occitan Visit Id: Visit Reason: ENLARGED PROSTATE WITH URINARY OBSTRUCTION, INCOMPLETE BLADDER EMPTYING Speciality: Acuity: Enc Type: Outpatient Med Service: Surgery Arrival: 09/25/2024 11:42:27 Discharge: Dispo Type: Address: [address] [facility] [id number] Provider Notes: Diagnosis: Problems Active BPH with [...] With: Address: When: MARQUIS LOUISE [address] [place] [address] [phone] Business (1) Comments: Follow-up in the office in 2 weeks to discuss next plan With: Address: When: MARQUIS LOUISE [address] [place] [address] [phone] Business (1) Patient Education Information: Benign Prostatic Hyperplasia [facility] Main OR Intraoperative Recor don 09-25-2024 Main OR Intraoperative Record Main OR Intraoperative Record IntraOp Document Type FTURO Summary Primary Physician: MARQUIS LOUISE MD Finalized Date/Time: 09/25/24 13:23:58 Pt. Name: NADIR BETH Joy Borja/Sex: 1940 Male Med Rec #: [id number] Physician: MARQUIS LOUISE MD Financial #: [id number] Pt. Type: O Room/Bed: / Admit/Disch: 09/25/24 [...] C KWABENA Role Performed Surgeon - Primary Tailercpa - Primary Scrub - Primary Time In [...] 09/25/24 13:23 Oliva Goel 09/25/24 13:23 [facility] Main OR Preoperative Recordo n 09-25-2024 Main OR Preoperative Record Main OR Preoperative Record Holding Area Document Type FTURO Summary Primary Physician: MARQUIS LOUISE MD Finalized Date/Time: 09/25/24 13:04:51 Pt. Name: NADIR BETH Joy Borja/Sex: 1940 Male Med Rec #: [id number] Physician: MARQUIS LOUISE MD Financial #: [id number] Pt. Type: O Room/Bed: / Admit/Disch: 09/25/24 [...] Complaints of Pain: No Skin Integrity Intact, [place], Warm, & Dry Vitals - EU Blood Pressure Pulse Respirations SPO2 Additional None RN Reviewed Yes Specimens Collected Last Modified By: Oliva Goel 09/25/24 13:04:50 Finalized By: Oliva Goel Document Signatures Signed By: Preeti Kaur LPN 09/25/24 12:49 Oliva Goel 09/25/24 13:04 [facility] Operative Reporton Operative Report Operative Report [...] next steps Impression and Plan Counseled: Family. [facility] Comment on above: Result Comment: Elec tronically Signed By: MARQUIS LOUISE MD\.br\Date and Time Signed: 09/25/24 13:27 EST Outpatient Surgery Discharge Instructionon 09-25-2024 Outpatient Surgery Discharge Instruction Outpatient Surgery Discharge Instruction [place] [id number] Patient Discharge Instructions PERSON INFORMATION Name: NADIR [...] MARQUIS ADRIAN [address] [place] [place] [phone] Business (1) Comments: Follow-up in the office in 2 weeks to discuss next plan With: Address: When: MARQUIS ADRIAN [address] [place] [phone] [employer]Freeq (1) Comment: PATIENT EDUCATION INFORMATION Instructions: Benign [...] radio frequen (more content not included)... [facility] No Panel Informationon 08-24 [facility] Ambulatory Visit Summaryon 0 08-08-2024 Ambulatory [...] 525 mg (more content not included)... [facility] Urology Office/Clinic Noteon 08-08-2024 Urology Office/Clinic Note Urology Office/Clinic Note Chief Complaint follow up to [facility] ER HPI Staff 84 year old male new patient follow up to [facility] 08/06/24 presented due to redness [...] 1. 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) Pt presented to [facility] ER 08/06/24 with redness on [...] urinary channel, (more content not included)... [facility] Comment on above: Result Comment: Elec tronically Signed By: MARQUIS LOUISE MD\.br\Date and Time Signed: 08/08/24 11:05 EDT\.br\Electronically Co-Signed By: Roxy Gatica\.br\Date and Time Co-Signed: 08/08/24 10:46 EDT\.br\Electronically Co-Signed By: Roxy Gatica\.br\Date and Time Co-Signed: 08/08/24 10:53 EDT Office Visiton 07-05-2024 Follow-up visit [id number] KiritNadir Joy 1940 M Date Provider Department Center 07/05/2024 [facility] Comprehensiv Family History Problem Relation Age of Onset Coronary artery disease Father Family Status - Relation Status Age at Father Level of Service:18173 ID OFFICE/OUTPATIENT ESTABLISHED MOD MDM 30 MIN Reason for Visit and Comments: Follow-up [030612] [facility] 06-20-2024 36 Regarding echo resul t from [...] her he should have another echo at [facility] in Oct 2024, prior to his follow up with Dr. Cisneros in Nov 2024. She verbalized understanding. Echo order faxed to [facility]. [facility] 06-14-2024 36 Patients called and stating that dr. Linda told her to call and let him know that her husbands blood pressure is better and she would like a call back. [facility] 06-09-2024 36 Spoke with patient's Kervin and made sure she understood to increase labetalol per Dr. Linda. She also understands not to resume hydralazine. [facility] 06-07-2024 36 I'm Stephanie from Dr. Cisneros's office with Cardiology. Patient's daughter called and wanted to know if Dr. Linda had restarted patient's hydralazine- NOT hydroxyzine. I don't see in the note that it was restarted. Dr. Linda, or someone from his office- can you clarify this for me? Thanks so much. [facility] Follow-Upon 06-07-2024 Follow-Up [id number] Nadir Beth 1940 M Date Provider Department Center 06/07/2024 [facility] Comprehensiv Family History Problem Relation Age of Onset Coronary artery disease Father Family Status - Relation Status Age at Father Level of Service:53327 ID OFFICE/OUTPATIENT ESTABLISHED MOD MDM 30 MIN () Reason for Visit and Comments: Follow-up [340736] [facility] Telephoneon 06-07-2024 Telephone [id number] Nadir Beth 1940 M Date Provider Department Center 06/07/2024 [place]-[facility]RO Comprehensiv Family History Problem Relation Age of Onset Coronary artery disease Father Family Status - Relation Status Age at Father [facility] Office Visiton 06-05-2024 Follow-up visit [id number] Nadir Beth 1940 M Date Provider Department Center 06/05/2024 367-CLARIBEL CISNEROS MILKA Dominguez [facility] Family History Problem Relation Age of Onset Coronary artery disease Father Family Status - Relation Status Age at Father Level of Service:56662 ID OFFICE/OUTPATIENT ESTABLISHED MOD MDM 30 MIN [facility] 36on 05-17-2024 36 Faxed lab orders 05/17/24 [facility] 36on 05-15-2024 36 Patient states that he [facility] his appointment on 05/31/24. [facility] 36on 05-10-2024 36 LM on for patient or his to return my call. [facility] 36on 05-08-2024 36 Patient's bucio d with concerns of elevated BP since hydralazine was stopped at last apt. She said sometimes it's very good - 110/60's and sometimes 152/70. He's scheduled to see you in a few weeks. Did you want to change anything? Please advise. Thanks. [facility] 3604-04-2024 36 Regarding blood work from 04/03/2024: MD Stephanie Kelley MA Stable renal function. Continue same treatment and follow-up as planned. Patient's made aware. [facility] Orders Onlyon 03-21-2024 Orders Only [id number] Nadir Beth 1940 M Date Provider Department Center 03/21/2024 895-LUCRETIA MURPHY CARD [facility] Family History Problem Relation Age of Onset Coronary artery disease Father Family Status - Relation Status Age at Father Normal [facility] Office Visiton 03-03-2024 Follow-up visit [id number] Nadir Beth Joy 1940 M Date Provider Department Center 03/03/2024 SrideviGONZÁLEZANJUMCLARIBEL DINH [facility] Family History Problem Relation Age of Onset Coronary artery disease Father Family Status - Relation Status Age at Father Level of Service:35819 ID OFFICE/OUTPATIENT ESTABLISHED MOD MDM 30 MIN Reason for Visit and Comments: Follow-up [894691] Normal [facility] MICRO OTHER [...] 6.7 E9/L Normal 4.0 - 11.0 E9/L [facility] ALBUMINon 03-24-2023 Albumin [Mass/Vol] 3.3 g/dL Critically low 3.4-5.0 Th e [facility] Comment on above: Performed By: #### M ERICK Faith PHOS #### [facility] [address] [place] [address] Dr. David Magana GLYCOHEMOGLOBIN A1Con 2022 ADA RECOMMENDATION SEE BELOW Normal [facility] Comment on above: Result Comment: ADA RECOMMENDED LIMIT 4.0 - 6.0 ADA THERAPEUTIC TARGET < 7.0 ACTION SUGGESTED > 7.0 Performed By: #### A 1C #### [facility] [address] [place] [address] Dr. David Magana Glucose [Mass/Vol] 108 mg/dL Normal [facility] Comment on above: Performed By: #### A 1C #### [facility] [address] [place] [address] Dr. David Magana HbA1c (Bld) [Mass fraction] 5.4 % Normal 4.5-6.2 [facility] Comment on above: Performed By: #### A 1C #### [facility] [address] [place] [address] Dr. David Magana PHOSPHORUSon 03-24-2023 Phosphate [Mass/Vol] 3.6 mg/dL Normal 2.6-4.7 [facility] Comment on above: Performed By: #### M ERICK Faith, PHOS #### [facility] [address] [place] [address] Dr. David Magana PROF CHEM 8 (BAS METB)on Anion gap [Moles/Vol] 11.6 mmol/L Normal [facility] Comment on above: Performed By: #### M ERICK Faith, PHOS #### [facility] [address] [place] [address] Dr. David Magana Calcium [Mass/Vol] 8.9 mg/dL Normal 8.5-10.[address] [facility] Comment on above: Performed By: #### Jim Faith BMP, PHOS #### [facility] [address] [place] [address] Dr. David Mgaana Chloride [Moles/Vol] 107 mmol/L Normal 98-107 [facility] Comment on above: Performed By: #### M ERICK Faith, PHOS #### [facility] [address] [place] [address] Dr. David Magana CO2 [Moles/Vol] 30.8 mmol/L Normal 21.0-32.0 [facility] Comment on above: Performed By: #### M ERICK Faith, PHOS #### [facility] [address] [address] [address] David Magana Creatinine [Mass/Vol] 1.67 mg/dL Critically high 0.70-1.30 [facility] Comment on above: Performed By: #### M G, BMP, PHOS #### [facility] [address] [address] [address] David Magana EGFR-AF WELSH 48 mL/min/1.73m2 Critically low >=60 [facility] Comment on above: Performed By: #### M G, BMP, PHOS #### [facility] [address] [address] [address] David Magana EGFR-NON AF WELSH 39 mL/min/1.73m2 Critically low >=60 [facility] Comment on above: Performed By: #### M G, BMP, PHOS #### [facility] [address] [place] [address] Dr. David Magana Glucose [Mass/Vol] 128 mg/dL Critically high 74-106 [facility] Comment on above: Performed By: #### M Marcell, BMP, PHOS #### [facility] [address] [address] [address] David Magana Potassium [Moles/Vol] 4.4 mmol/L Normal 3.5-5.1 [facility] Comment on above: Performed By: #### M Marcell, BMP, PHOS #### [facility] [address] [place] [address] Dr. David Magana Sodium [Moles/Vol] 145 mmol/L Normal 136-[address] [facility] Comment on above: Performed By: #### M G, BMP, PHOS #### [facility] [address] [address] [address] David Magana Urea nitrogen [Mass/Vol] 25.0 mg/dL Critically high 7.0-18.0 [facility] Comment on above: Performed By: #### M G, BMP, PHOS #### [facility] [address] [address] [address] David Magana Urea nitrogen/Creatinine [Mass ratio] 15.0 mg/mg Normal [facility] Comment on above: Performed By: #### M ERICK Faith, PHOS #### [facility] [address] [place] [address] Dr. David Magana VITAMIN D 25 OHon 03-24-2023 VIT D 25-OH 11.6 ng/mL Normal [facility] Comment on above: Performed By: #### C BC #### [facility] [address] [place] [address] Dr. David Magana VIT D RANGES SEE BELOW Normal [facility] Comment on above: Result Comment: <20 ng/mL Vit D deficient 20 - <30 ng/mL Vit D insufficient 30 - 100 ng/mL Vit D sufficient >100 ng/mL Potential Toxicity Performed By: #### C BC #### [facility] [address] [place] [address] Dr. David Magana CBC AUTO DIFFon 02-27-2023 BASO # 0.0 103/ul Normal 0.0-0.1 [facility] Comment on above: Performed By: #### M ERICK Faith, PHOS #### [facility] [address] [place] [address] Dr. David Magana Basophils/100 WBC (Bld) 0.5 % Normal 0.2-2.0 [facility] Comment on above: Performed By: #### ERICK Jacques, PHOS #### [facility] [address] [place] [address] Dr. David Magana EO # 0.7 103/ul Normal 0.0-0.7 [facility] Comment on above: Performed By: #### M ERICK Faith, PHOS #### [facility] [address] [place] [address] Dr. David Magana Eosinophils/100 WBC (Bld) 9.3 % Critically high 0.9-7.0 [facility] Comment on above: Performed By: #### M ERICK Faith, PHOS #### [facility] [address] [place] [address] Dr. David Magana Erythrocyte distribution width (RBC) [Ratio] 14.6 % Normal 11.0-15.0 [facility] Comment on above: Performed By: #### M ERICK Faith, PHOS #### [facility] [address] [place] [address] Dr. David Magana Hematocrit (Bld) [Volume fraction] 41.5 % Critically low 42.0-54.0 [facility] Comment on above: Performed By: #### M ERICK Faith, PHOS #### [facility] [address] [place] [address] Dr. David Magana Hemoglobin (Bld) [Mass/Vol] 13.9 g/dL Critically low 14.0-18.0 [facility] Comment on above: Performed By: #### M ERICK Faith, PHOS #### [facility] [address] [place] [address] Dr. David Magana IG # 0.02 10e3/ul Normal 0.00-0.03 [facility] Comment on above: Performed By: #### ERICK Jacques, PHOS #### [facility] [address] [place] [address] Dr. David Magana IG % 0.3 % Normal 0.0-0.5 [facility] Comment on above: Performed By: #### M ERICK Faith, PHOS #### [facility] [address] [place] [address] Dr. David Magana LYMPH # 1.0 103/ul Critically low 1.2-3.8 [facility] Comment on above: Performed By: #### ERICK Jacques, PHOS #### [facility] [address] [place] [address] Dr. David Magana Lymphocytes/100 WBC (Bld) 13.0 % Critically low 20.5-60.0 [facility] Comment on above: Performed By: #### M ERICK Faith, PHOS #### [facility] [address] [place] [address] Dr. David Magana MANUAL DIFF REQ NO Normal [facility] Comment on above: Performed By: #### ERICK Jacques, PHOS #### [facility] [address] [place] [address] Dr. David Magana MCH (RBC) [Entitic mass] 33.5 pg Normal 25.9-34.0 [facility] Comment on above: Performed By: #### M ERICK Faith, PHOS #### [facility] [address] [place] [address] Dr. David Magana MCHC (RBC) [Mass/Vol] 33.5 g/dL Normal 29.9-35.2 [facility] Comment on above: Performed By: #### M ERICK Faith, PHOS #### [facility] [address] [place] [address] Dr. David Magana MCV (RBC) [Entitic vol] 100.0 fL Critically high 80.0-94.0 [facility] Comment on above: Performed By: #### M ERICK Faith, PHOS #### [facility] [address] [place] [address] Dr. David Magana MONO # 0.8 103/ul Normal 0.3-0.8 [facility] Comment on above: Performed By: #### ERICK Jacques, PHOS #### [facility] [address] [place] [address] Dr. David Magana Monocytes/100 WBC (Bld) 10.1 % Normal 1.7-12.0 [facility] Comment on above: Performed By: #### M ERICK Faith, PHOS #### [facility] [address] [place] [address] Dr. David Magana NEUT # 5.0 103/ul Normal 1.4-6.5 [facility] Comment on above: Performed By: #### M ERICK Faith, PHOS #### [facility] [address] [place] [address] Dr. David Magana Neutrophils/100 WBC (Bld) 66.8 % Normal 43.0-75.0 [facility] Comment on above: Performed By: #### M ERICK Fatih, PHOS #### [facility] [address] [place] [address] Dr. David Magana Platelet mean volume (Bld) [Entitic vol] 11.2 fL Normal 9.5-13.5 [facility] Comment on above: Performed By: #### M ERICK Faith, PHOS #### [facility] [address] [place] [address] Dr. David Magana PLT 187 103/ul Normal 150-450 [facility] Comment on above: Performed By: #### M ERICK Faith, PHOS #### [facility] [address] [place] [address] Dr. David Magana RBC 4.15 106/ul Critically low 4.70-6.[address] [facility] Comment on above: Performed By: #### M ERICK Faith, PHOS #### [facility] [address] [place] [address] Dr. David Magana WBC 7.5 103/ul Normal 4.0-11.0 [facility] Comment on above: Performed By: #### ERICK Jacques, PHOS #### [facility] [address] [place] [address] Dr. David Magana PROF 14(COMP METB)on 023 Albumin [Mass/Vol] 3.5 g/dL Normal 3.4-5.[address] [facility] Comment on above: Performed By: #### A 1C #### [facility] [address] [place] [address] Dr. David Magana Albumin/Globulin [Mass ratio] 1.1 {ratio} Normal [facility] Comment on above: Performed By: #### A 1C #### [facility] [address] [place] [address] Dr. David Magana ALP [Catalytic activity/Vol] 76 U/L Normal 46-116 [facility] Comment on above: Performed By: #### A 1C #### [facility] [address] [place] [address] Dr. David Magana ALT [Catalytic activity/Vol] 23 U/L Normal 16-63 [facility] Comment on above: Performed By: #### A 1C #### [facility] [address] [place] [address] Dr. David Magana Anion gap [Moles/Vol] 13.1 mmol/L Normal [facility] Comment on above: Performed By: #### A 1C #### [facility] [address] [address] [address] David Magana AST [Catalytic activity/Vol] 17 U/L Normal 15-37 [facility] Comment on above: Performed By: #### A 1C #### [facility] [address] [address] [address] David Magana Bilirubin [Mass/Vol] 0.7 mg/dL Normal 0.2-1.0 [facility] Comment on above: Performed By: #### A 1C #### [facility] [address] [address] [address] David Magana Calcium [Mass/Vol] 9.0 mg/dL Normal 8.5-10.[address] [facility] Comment on above: Performed By: #### A 1C #### [facility] [address] [address] [address] David Magana Chloride [Moles/Vol] 105 mmol/L Normal 98-107 [facility] Comment on above: Performed By: #### A 1C #### [facility] [address] [address] [address] David Magana CO2 [Moles/Vol] 29.0 mmol/L Normal 21.0-32.0 [facility] Comment on above: Performed By: #### A 1C #### [facility] [address] [address] [address] David Magana Creatinine [Mass/Vol] 1.77 mg/dL Critically high 0.70-1.30 [facility] Comment on above: Performed By: #### A 1C #### [facility] [address] [address] [address] David Magana EGFR-AF WELSH 45 mL/min/1.73m2 Critically low >=60 [facility] Comment on above: Performed By: #### A 1C #### [facility] [address] [address] [address] David Magana EGFR-NON AF WELSH 37 mL/min/1.73m2 Critically low >=60 [facility] Comment on above: Performed By: #### A 1C #### [facility] [address] [address] [address] David Magana Globulin (S) [Mass/Vol] 3.3 g/dL Normal [facility] Comment on above: Performed By: #### A 1C #### [facility] [address] [address] [address] David Magana Glucose [Mass/Vol] 135 mg/dL Critically high 74-106 [facility] Comment on above: Performed By: #### A 1C #### [facility] [address] [address] [address] David Magana Potassium [Moles/Vol] 4.1 mmol/L Normal 3.5-5.1 [facility] Comment on above: Performed By: #### A 1C #### [facility] [address] [place] [address] Dr. David Magana Protein [Mass/Vol] 6.8 g/dL Normal 6.4-8.[address] [facility] Comment on above: Performed By: #### A 1C #### [facility] [address] [place] [address] Dr. David Magana Sodium [Moles/Vol] 143 mmol/L Normal 136-[address] [facility] Comment on above: Performed By: #### A 1C #### [facility] [address] [place] [address] Dr. David Magana Urea nitrogen [Mass/Vol] 31.0 mg/dL Critically high 7.0-18.0 [facility] Comment on above: Performed By: #### A 1C #### [facility] [address] [place] [address] Dr. David Magana Urea nitrogen/Creatinine [Mass ratio] 17.5 mg/mg Normal [facility] Comment on above: Performed By: #### A 1C #### [facility] [address] [place] [address] Dr. David Magana PROTIMEon 02-27-2023 INR Coag (PPP) [Relative time] 0.99 {INR} Normal [facility] Comment on above: Performed By: #### A 1C #### [facility] [address] [place] [address] Dr. David Magana INR GUIDELINES SEE BELOW Normal [facility] Comment on above: Result Comment: IDANIA RED INR: 2.0 - 3.0 CONDITIONS NOT LISTED BELOW 2.5 - 3.5 FOR PROSTHETIC HEART VALVE REPLACEMENT 2.5 - 3.5 RECURRENT THROMBOSIS Performed By: #### A 1C #### [facility] [address] [place] [address] Dr. David Magana PT Coag (PPP) [Time] 10.5 s Normal 9.0-11.6 [facility] Comment on above: Performed By: #### A 1C #### [facility] [address] [place] [address] Dr. Davdi Magana PTTon 02-27-2023 aPTT Coag (Bld) [Time] 33.0 s Normal 22.3-36.2 [facility] Comment on above: Performed By: #### P OCGLUC #### [facility] [address] [place] [address] Dr. David Magana ALBUMINon 12-28-2022 Albumin [Mass/Vol] 3.6 g/dL Normal 3.4-5.0 [facility] Comment on above: Performed By: #### C BC #### [facility] [address] [place] [address] Dr. David Magana GLYCOHEMOGLOBIN A1Con 2022 ADA RECOMMENDATION SEE BELOW Normal [facility] Comment on above: Result Comment: ADA RECOMMENDED LIMIT 4.0 - 6.0 ADA THERAPEUTIC TARGET < 7.0 ACTION SUGGESTED > 7.0 Performed By: #### P OCGLUC #### [facility] [address] [place] [address] Dr. David Magana Glucose [Mass/Vol] 140 mg/dL Normal [facility] Comment on above: Performed By: #### P OCGLUC #### [facility] [address] [place] [address] Dr. David Magana HbA1c (Bld) [Mass fraction] 6.5 % Critically high 4.5-6.2 [facility] Comment on above: Performed By: #### P OCGLUC #### [facility] [address] [address] [address] David Magana MAGNESIUMon 12-28-2022 Magnesium [Mass/Vol] 2.3 mg/dL Normal 1.8-2.4 [facility] Comment on above: Performed By: #### P OCGLUC #### [facility] [address] [place] [address] Dr. David Magana PROF CHEM 8 (BAS METB)on Anion gap [Moles/Vol] 13.2 mmol/L Normal [facility] Comment on above: Performed By: #### P OCGLUC #### [facility] [address] [place] [address] Dr. David Magana Calcium [Mass/Vol] 9.0 mg/dL Normal 8.5-10.[address] [facility] Comment on above: Performed By: #### P OCGLUC #### [facility] [address] [place] [address] Dr. David Magana Chloride [Moles/Vol] 105 mmol/L Normal 98-107 [facility] Comment on above: Performed By: #### P OCGLUC #### [facility] [address] [place] [address] Dr. David Magana CO2 [Moles/Vol] 28.9 mmol/L Normal 21.0-32.0 [facility] Comment on above: Performed By: #### P OCGLUC #### [facility] [address] [place] [address] Dr. David Magana Creatinine [Mass/Vol] 1.66 mg/dL Critically high 0.70-1.30 [facility] Comment on above: Performed By: #### P OCGLUC #### [facility] [address] [place] [address] Dr. David Magana EGFR-AF WELSH 48 mL/min/1.73m2 Critically low >=60 [facility] Comment on above: Performed By: #### P OCGLUC #### [facility] [address] [place] [address] Dr. David Magana EGFR-NON AF WELSH 40 mL/min/1.73m2 Critically low >=60 [facility] Comment on above: Performed By: #### P OCGLUC #### [facility] [address] [address] [address] David Magana Glucose [Mass/Vol] 123 mg/dL Critically high 74-106 [facility] Comment on above: Performed By: #### P OCGLUC #### [facility] [address] [address] [address] David Magana Potassium [Moles/Vol] 4.1 mmol/L Normal 3.5-5.1 [facility] Comment on above: Performed By: #### P OCGLUC #### [facility] [address] [address] [address] David Magana Sodium [Moles/Vol] 143 mmol/L Normal 136-[address] [facility] Comment on above: Performed By: #### P OCGLUC #### [facility] [address] [address] [address] David Magana Urea nitrogen [Mass/Vol] 29.0 mg/dL Critically high 7.0-18.0 [facility] Comment on above: Performed By: #### P OCGLUC #### [facility] [address] [address] [address] David Magana Urea nitrogen/Creatinine [Mass ratio] 17.5 mg/mg Normal [facility] Comment on above: Performed By: #### P OCGLUC #### [facility] [address] [address] [address] David Magana URINE T PROTEIN CREAT RATIOo n 12-28-2022 UR TOTAL PROTEIN <6.0 Normal <=12.0 [facility] Comment on above: Performed By: #### ERICK Jacques PHOS #### [facility] [address] [address] [address] David Magana URINE CREAT 41.21 mg/dL Normal 20.00-300.00 [facility] Comment on above: Performed By: #### ERICK Jacques PHOS #### [facility] [address] [place] [address] Dr. David Magana ALBUMINon 11-16-2022 Albumin [Mass/Vol] 3.3 g/dL Critically low 3.4-5.0 [facility] Comment on above: Performed By: #### C BC #### [facility] [address] [place] [address] Dr. David Magana CREATININE URINEon URINE CREAT 19.69 mg/dL Critically low 20.00-300.[address] [facility] Comment on above: Performed By: #### M ERICK Faith, PHOS #### [facility] [address] [place] [address] Dr. David Magana HEMOGLOBINon 11-16-2022 Hemoglobin (Bld) [Mass/Vol] 14.9 g/dL Normal 14.0-18.0 [facility] Comment on above: Performed By: #### ERICK Jacques, PHOS #### [facility] [address] [place] [address] Dr. David Magana MAGNESIUMon 11-16-2022 Magnesium [Mass/Vol] 2.2 mg/dL Normal 1.8-2.4 [facility] Comment on above: Performed By: #### C BC #### [facility] [address] [place] [address] Dr. David Magana PHOSPHORUSon 11-16-2022 Phosphate [Mass/Vol] 3.9 mg/dL Normal 2.6-4.7 [facility] Comment on above: Performed By: #### C BC #### [facility] [address] [place] [address] Dr. David Magana PROF CHEM 8 (BAS METB)on Anion gap [Moles/Vol] 11.9 mmol/L Normal [facility] Comment on above: Performed By: #### C BC #### [facility] [address] [place] [address] Dr. David Magana Calcium [Mass/Vol] 8.8 mg/dL Normal 8.5-10.[address] [facility] Comment on above: Performed By: #### C BC #### [facility] [address] [address] [address] David Magana Chloride [Moles/Vol] 104 mmol/L Normal 98-107 [facility] Comment on above: Performed By: #### C BC #### [facility] [address] [address] [address] David Magana CO2 [Moles/Vol] 27.4 mmol/L Normal 21.0-32.0 [facility] Comment on above: Performed By: #### C BC #### [facility] [address] [address] [address] David Magana Creatinine [Mass/Vol] 1.68 mg/dL Critically high 0.70-1.30 [facility] Comment on above: Performed By: #### C BC #### [facility] [address] [address] [address] David Magana EGFR-AF WELSH 48 mL/min/1.73m2 Critically low >=60 [facility] Comment on above: Performed By: #### C BC #### [facility] [address] [address] [address] David Magana EGFR-NON AF WELSH 39 mL/min/1.73m2 Critically low >=60 [facility] Comment on above: Performed By: #### C BC #### [facility] [address] [address] [address] David Magana Glucose [Mass/Vol] 212 mg/dL Critically high 74-106 [facility] Comment on above: Performed By: #### C BC #### [facility] [address] [address] [address] David Magana Potassium [Moles/Vol] 4.3 mmol/L Normal 3.5-5.1 [facility] Comment on above: Performed By: #### C BC #### [facility] [address] [address] [address] David Magana Sodium [Moles/Vol] 139 mmol/L Normal 136-[address] [facility] Comment on above: Performed By: #### C BC #### [facility] [address] [place] [address] Dr. David Magana Urea nitrogen [Mass/Vol] 25.0 mg/dL Critically high 7.0-18.0 [facility] Comment on above: Performed By: #### C BC #### [facility] [address] [place] [address] Dr. David Magana Urea nitrogen/Creatinine [Mass ratio] 14.9 mg/mg Normal [facility] Comment on above: Performed By: #### C BC #### [facility] [address] [place] [address] Dr. David Magana PROTEIN RAND URINEon 023 UR PROT <5.0 Normal <=11.9 [facility] Comment on above: Performed By: #### ERICK Jacques PHOS #### [facility] [address] [place] [address] Dr. David Magana US CHANI DOP LEG [...] CLOVER PEREZ Date: 2022-11-02 16:21 Normal [facility] BNPon 07-22-2022 Natriuretic peptide B (Bld) [Mass/Vol] 2143.0 pg/mL Critically high <=1,800.0 [facility] Comment on above: Performed By: #### ERICK Jacques, PHOS #### [facility] [address] [place] [address] Dr. David Magana CBC AUTO DIFFon 07-22-2022 BASO # 0.0 103/ul Normal 0.0-0.1 [facility] Comment on above: Performed By: #### A 1C #### [facility] [address] [place] [address] Dr. David Magana Basophils/100 WBC (Bld) 0.3 % Normal 0.2-2.0 [facility] Comment on above: Performed By: #### A 1C #### [facility] [address] [place] [address] Dr. David Magana EO # 0.3 103/ul Normal 0.0-0.7 [facility] Comment on above: Performed By: #### A 1C #### [facility] [address] [place] [address] Dr. David Magana Eosinophils/100 WBC (Bld) 2.4 % Normal 0.9-7.0 [facility] Comment on above: Performed By: #### A 1C #### [facility] [address] [place] [address] Dr. David Magana Erythrocyte distribution width (RBC) [Ratio] 13.4 % Normal 11.0-15.0 [facility] Comment on above: Performed By: #### A 1C #### [facility] [address] [place] [address] Dr. David Magana Hematocrit (Bld) [Volume fraction] 42.7 % Normal 42.0-54.0 [facility] Comment on above: Performed By: #### A 1C #### [facility] [address] [place] [address] Dr. David Magana Hemoglobin (Bld) [Mass/Vol] 14.2 g/dL Normal 14.0-18.0 [facility] Comment on above: Performed By: #### A 1C #### [facility] [address] [place] [address] Dr. David Magana IG # 0.18 10e3/ul Critically high 0.00-0.03 [facility] Comment on above: Performed By: #### A 1C #### [facility] [address] [place] [address] Dr. David Magana IG % 1.6 % Critically high 0.0-0.5 [facility] Comment on above: Performed By: #### A 1C #### [facility] [address] [place] [address] Dr. David Magana LYMPH # 0.9 103/ul Critically low 1.2-3.8 [facility] Comment on above: Performed By: #### A 1C #### [facility] [address] [place] [address] Dr. David Magana Lymphocytes/100 WBC (Bld) 8.1 % Critically low 20.5-60.0 [facility] Comment on above: Performed By: #### A 1C #### [facility] [address] [place] [address] Dr. David Magana MANUAL DIFF REQ NO Normal [facility] Comment on above: Performed By: #### A 1C #### [facility] [address] [place] [address] Dr. David Magana MCH (RBC) [Entitic mass] 33.3 pg Normal 25.9-34.0 [facility] Comment on above: Performed By: #### A 1C #### [facility] [address] [place] [address] Dr. David Magana MCHC (RBC) [Mass/Vol] 33.3 g/dL Normal 29.9-35.2 [facility] Comment on above: Performed By: #### A 1C #### [facility] [address] [place] [address] Dr. David Magana MCV (RBC) [Entitic vol] 100.2 fL Critically high 80.0-94.0 [facility] Comment on above: Performed By: #### A 1C #### [facility] [address] [place] [address] Dr. David Magana MONO # 1.2 103/ul Critically high 0.3-0.[address] [facility] Comment on above: Performed By: #### A 1C #### [facility] [address] [place] [address] Dr. David Magana Monocytes/100 WBC (Bld) 10.5 % Normal 1.7-12.0 [facility] Comment on above: Performed By: #### A 1C #### [facility] [address] [place] [address] Dr. David Magana NEUT # 8.9 103/ul Critically high 1.4-6.[address] [facility] Comment on above: Performed By: #### A 1C #### [facility] [address] [place] [address] Dr. David Magana Neutrophils/100 WBC (Bld) 77.1 % Critically high 43.0-75.0 [facility] Comment on above: Performed By: #### A 1C #### [facility] [address] [place] [address] Dr. David Magana Platelet mean volume (Bld) [Entitic vol] 11.3 fL Normal 9.5-13.5 [facility] Comment on above: Performed By: #### A 1C #### [facility] [address] [place] [address] Dr. David Magana PLT 175 103/ul Normal 150-450 [facility] Comment on above: Performed By: #### A 1C #### [facility] [address] [place] [address] Dr. David Magana RBC 4.26 106/ul Critically low 4.70-6.[address] [facility] Comment on above: Performed By: #### A 1C #### [facility] [address] [place] [address] Dr. David Magana WBC 11.5 103/ul Critically high 4.0-11.0 [facility] Comment on above: Performed By: #### A 1C #### [facility] [address] [place] [address] Dr. David Magana PROF 14(COMP METB)on 022 Albumin [Mass/Vol] 2.6 g/dL Critically low 3.4-5.0 [facility] Comment on above: Performed By: #### ERICK Jacques PHOS #### [facility] [address] [place] [address] Dr. David Magana Albumin/Globulin [Mass ratio] 0.9 {ratio} Normal [facility] Comment on above: Performed By: #### ERICK Jacques PHOS #### [facility] [address] [place] [address] Dr. David Magana ALP [Catalytic activity/Vol] 49 U/L Normal 46-116 [facility] Comment on above: Performed By: #### ERICK Jacques, PHOS #### [facility] [address] [address] [address] David Magana ALT [Catalytic activity/Vol] 25 U/L Normal 16-63 [facility] Comment on above: Performed By: #### ERICK Jacques, PHOS #### [facility] [address] [address] [address] David Magana Anion gap [Moles/Vol] 12.8 mmol/L Normal [facility] Comment on above: Performed By: #### ERICK Jacques, PHOS #### [facility] [address] [place] [address] Dr. David Magana AST [Catalytic activity/Vol] 9 U/L Critically low 15-37 [facility] Comment on above: Performed By: #### ERICK Jacques, PHOS #### [facility] [address] [place] [address] Dr. David Magana Bilirubin [Mass/Vol] 0.5 mg/dL Normal 0.2-1.0 [facility] Comment on above: Performed By: #### ERICK Jacques, PHOS #### [facility] [address] [place] [address] Dr. David Magana Calcium [Mass/Vol] 8.3 mg/dL Critically low 8.5-10.1 [facility] Comment on above: Performed By: #### ERICK Jacques, PHOS #### [facility] [address] [place] [address] Dr. David Mgaana Chloride [Moles/Vol] 105 mmol/L Normal 98-107 [facility] Comment on above: Performed By: #### ERICK Jacques, PHOS #### [facility] [address] [place] [address] Dr. David Magana CO2 [Moles/Vol] 24.2 mmol/L Normal 21.0-32.0 [facility] Comment on above: Performed By: #### ERICK Jacques, PHOS #### [facility] [address] [address] [address] David Magana Creatinine [Mass/Vol] 1.28 mg/dL Normal 0.70-1.30 [facility] Comment on above: Performed By: #### M G, BMP, PHOS #### [facility] [address] [address] [address] David Magana EGFR-AF WELSH >60 Normal >=60 [facility] Comment on above: Performed By: #### M G, BMP, PHOS #### [facility] [address] [address] [address] David Magana EGFR-NON AF WELSH 54 mL/min/1.73m2 Critically low >=60 [facility] Comment on above: Performed By: #### M G, BMP, PHOS #### [facility] [address] [place] [address] Dr. David Magana Globulin (S) [Mass/Vol] 2.9 g/dL Normal [facility] Comment on above: Performed By: #### M G, BMP, PHOS #### [facility] [address] [address] [address] David Magana Glucose [Mass/Vol] 205 mg/dL Critically high 74-106 [facility] Comment on above: Performed By: #### M G, BMP, PHOS #### [facility] [address] [address] [address] David Magana Potassium [Moles/Vol] 4.0 mmol/L Normal 3.5-5.1 [facility] Comment on above: Performed By: #### M G, BMP, PHOS #### [facility] [address] [address] [address] David Magana Protein [Mass/Vol] 5.5 g/dL Critically low 6.4-8.2 Th [facility] Comment on above: Performed By: #### M G, BMP, PHOS #### [facility] [address] [address] [address] David Magana Sodium [Moles/Vol] 138 mmol/L Normal 136-[address] [facility] Comment on above: Performed By: #### ERICK Jacques PHOS #### [facility] [address] [place] [address] Dr. David Magana Urea nitrogen [Mass/Vol] 36.0 mg/dL Critically high 7.0-18.0 [facility] Comment on above: Performed By: #### ERICK Jacques PHOS #### [facility] [address] [place] [address] Dr. David Magana Urea nitrogen/Creatinine [Mass ratio] 28.1 mg/mg Normal [facility] Comment on above: Performed By: #### ERICK Jacques PHOS #### [facility] [address] [place] [address] Dr. David Magana BNPon 07-21-2022 Natriuretic peptide B (Bld) [Mass/Vol] 3485.0 pg/mL Critically high <=1,800.0 [facility] Comment on above: Result Comment: repe ated Performed By: #### A 1C #### [facility] [address] [place] [address] Dr. David Magana CBC AUTO DIFFon 07-21-2022 BASO # 0.0 103/ul Normal 0.0-0.1 [facility] Comment on above: Performed By: #### C BC #### [facility] [address] [place] [address] Dr. David Magana Basophils/100 WBC (Bld) 0.3 % Normal 0.2-2.0 [facility] Comment on above: Performed By: #### C BC #### [facility] [address] [place] [address] Dr. David Magana EO # 0.2 103/ul Normal 0.0-0.7 [facility] Comment on above: Performed By: #### C BC #### [facility] [address] [place] [address] Dr. David Magana Eosinophils/100 WBC (Bld) 1.9 % Normal 0.9-7.0 [facility] Comment on above: Performed By: #### C BC #### [facility] [address] [place] [address] Dr. David Magana Erythrocyte distribution width (RBC) [Ratio] 13.4 % Normal 11.0-15.0 [facility] Comment on above: Performed By: #### C BC #### [facility] [address] [place] [address] Dr. David Magana Hematocrit (Bld) [Volume fraction] 42.5 % Normal 42.0-54.0 [facility] Comment on above: Performed By: #### C BC #### [facility] [address] [place] [address] Dr. David Magana Hemoglobin (Bld) [Mass/Vol] 14.2 g/dL Normal 14.0-18.0 [facility] Comment on above: Performed By: #### C BC #### [facility] [address] [place] [address] Dr. David Magana IG # 0.22 10e3/ul Critically high 0.00-0.03 [facility] Comment on above: Performed By: #### C BC #### [facility] [address] [place] [address] Dr. David Magana IG % 2.1 % Critically high 0.0-0.[address] [facility] Comment on above: Performed By: #### C BC #### [facility] [address] [place] [address] Dr. David Magana LYMPH # 0.8 103/ul Critically low 1.2-3.8 [facility] Comment on above: Performed By: #### C BC #### [facility] [address] [place] [address] Dr. David Magana Lymphocytes/100 WBC (Bld) 7.7 % Critically low 20.5-60.0 [facility] Comment on above: Performed By: #### C BC #### [facility] [address] [place] [address] Dr. David Magana MANUAL DIFF REQ NO Normal [facility] Comment on above: Performed By: #### C BC #### [facility] [address] [address] [address] David Magana MCH (RBC) [Entitic mass] 33.0 pg Normal 25.9-34.0 [facility] Comment on above: Performed By: #### C BC #### [facility] [address] [place] [address] Dr. David Magana MCHC (RBC) [Mass/Vol] 33.4 g/dL Normal 29.9-35.2 [facility] Comment on above: Performed By: #### C BC #### [facility] [address] [place] [address] Dr. David Magana MCV (RBC) [Entitic vol] 98.8 fL Critically high 80.0-94.0 [facility] Comment on above: Performed By: #### C BC #### [facility] [address] [place] [address] Dr. David Magana MONO # 1.0 103/ul Critically high 0.3-0.[address] [facility] Comment on above: Performed By: #### C BC #### [facility] [address] [place] [address] Dr. David Magana Monocytes/100 WBC (Bld) 9.7 % Normal 1.7-12.0 [facility] Comment on above: Performed By: #### C BC #### [facility] [address] [place] [address] Dr. David Magana NEUT # 8.1 103/ul Critically high 1.4-6.5 [facility] Comment on above: Performed By: #### C BC #### [facility] [address] [place] [address] Dr. David Magana Neutrophils/100 WBC (Bld) 78.3 % Critically high 43.0-75.0 [facility] Comment on above: Performed By: #### C BC #### [facility] [address] [place] [address] Dr. David Magana Platelet mean volume (Bld) [Entitic vol] 10.7 fL Normal 9.5-13.5 [facility] Comment on above: Performed By: #### C BC #### [facility] [address] [place] [address] Dr. David Magana PLT 177 103/ul Normal 150-450 [facility] Comment on above: Performed By: #### C BC #### [facility] [address] [place] [address] Dr. David Magana RBC 4.30 106/ul Critically low 4.70-6.[address] [facility] Comment on above: Performed By: #### C BC #### [facility] [address] [place] [address] Dr. David Magana WBC 10.4 103/ul Normal 4.0-11.0 [facility] Comment on above: Performed By: #### C BC #### [facility] [address] [place] [address] Dr. David Magana PROF 14(COMP METB)on 022 Albumin [Mass/Vol] 2.6 g/dL Critically low 3.4-5.0 [facility] Comment on above: Performed By: #### A 1C #### [facility] [address] [place] [address] Dr. David Magana Albumin/Globulin [Mass ratio] 1.0 {ratio} Normal [facility] Comment on above: Performed By: #### A 1C #### [facility] [address] [place] [address] Dr. David Magana ALP [Catalytic activity/Vol] 50 U/L Normal 46-116 [facility] Comment on above: Performed By: #### A 1C #### [facility] [address] [place] [address] Dr. David Magana ALT [Catalytic activity/Vol] 28 U/L Normal 16-63 [facility] Comment on above: Performed By: #### A 1C #### [facility] [address] [place] [address] Dr. David Magana Anion gap [Moles/Vol] 11.4 mmol/L Normal [facility] Comment on above: Performed By: #### A 1C #### [facility] [address] [address] [address] David Magana AST [Catalytic activity/Vol] 13 U/L Critically low 15-37 [facility] Comment on above: Performed By: #### A 1C #### [facility] [address] [place] [address] Dr. David Magana Bilirubin [Mass/Vol] 0.4 mg/dL Normal 0.2-1.0 [facility] Comment on above: Performed By: #### A 1C #### [facility] [address] [place] [address] Dr. David Magana Calcium [Mass/Vol] 8.4 mg/dL Critically low 8.5-10.1 [facility] Comment on above: Performed By: #### A 1C #### [facility] [address] [place] [address] Dr. David Magana Chloride [Moles/Vol] 107 mmol/L Normal 98-107 [facility] Comment on above: Performed By: #### A 1C #### [facility] [address] [place] [address] Dr. David Magana CO2 [Moles/Vol] 24.6 mmol/L Normal 21.0-32.0 [facility] Comment on above: Performed By: #### A 1C #### [facility] [address] [place] [address] Dr. David Magana Creatinine [Mass/Vol] 1.26 mg/dL Normal 0.70-1.30 [facility] Comment on above: Performed By: #### A 1C #### [facility] [address] [place] [address] Dr. David Magana EGFR-AF WELSH >60 Normal >=60 [facility] Comment on above: Performed By: #### A 1C #### [facility] [address] [place] [address] Dr. David Magana EGFR-NON AF WELSH 55 mL/min/1.73m2 Critically low >=60 [facility] Comment on above: Performed By: #### A 1C #### [facility] [address] [place] [address] Dr. David Magana Globulin (S) [Mass/Vol] 2.7 g/dL Normal [facility] Comment on above: Performed By: #### A 1C #### [facility] [address] [place] [address] Dr. David Magana Glucose [Mass/Vol] 203 mg/dL Critically high 74-106 T [facility] Comment on above: Performed By: #### A 1C #### [facility] [address] [place] [address] Dr. David Magana Potassium [Moles/Vol] 4.0 mmol/L Normal 3.5-5.1 [facility] Comment on above: Performed By: #### A 1C #### [facility] [address] [place] [address] Dr. David Magana Protein [Mass/Vol] 5.3 g/dL Critically low 6.4-8.2 Th [facility] Comment on above: Performed By: #### A 1C #### [facility] [address] [place] [address] Dr. David Magana Sodium [Moles/Vol] 139 mmol/L Normal 136-[address] [facility] Comment on above: Performed By: #### A 1C #### [facility] [address] [place] [address] Dr. David Magana Urea nitrogen [Mass/Vol] 33.0 mg/dL Critically high 7.0-18.0 [facility] Comment on above: Performed By: #### A 1C #### [facility] [address] [place] [address] Dr. David Magana Urea nitrogen/Creatinine [Mass ratio] 26.2 mg/mg Normal [facility] Comment on above: Performed By: #### A 1C #### [facility] [address] [place] [address] Dr. David Magana BNPon 07-20-2022 Natriuretic peptide B (Bld) [Mass/Vol] 7478.0 pg/mL Critically high <=1,800.0 [facility] Comment on above: Performed By: #### A 1C #### [facility] [address] [place] [address] Dr. David Magana CBC AUTO DIFFon 07-20-2022 BASO # 0.1 103/ul Normal 0.0-0.1 [facility] Comment on above: Performed By: #### M G, BMP, PHOS #### [facility] [address] [address] [address] David Magana Basophils/100 WBC (Bld) 0.8 % Normal 0.2-2.0 [facility] Comment on above: Performed By: #### M G, BMP, PHOS #### [facility] [address] [address] [address] David Magana EO # 0.1 103/ul Normal 0.0-0.7 [facility] Comment on above: Performed By: #### M G, BMP, PHOS #### [facility] [address] [place] [address] Dr. David Magana Eosinophils/100 WBC (Bld) 0.6 % Critically low 0.9-7.0 [facility] Comment on above: Performed By: #### M G, BMP, PHOS #### [facility] [address] [place] [address] Dr. David Magana Erythrocyte distribution width (RBC) [Ratio] 13.4 % Normal 11.0-15.0 [facility] Comment on above: Performed By: #### M G, BMP, PHOS #### [facility] [address] [place] [address] Dr. David Magana Hematocrit (Bld) [Volume fraction] 43.2 % Normal 42.0-54.0 [facility] Comment on above: Performed By: #### M G, BMP, PHOS #### [facility] [address] [place] [address] Dr. David Magana Hemoglobin (Bld) [Mass/Vol] 14.2 g/dL Normal 14.0-18.0 [facility] Comment on above: Performed By: #### M G, BMP, PHOS #### [facility] [address] [place] [address] Dr. David Magana IG # 0.21 10e3/ul Critically high 0.00-0.03 [facility] Comment on above: Performed By: #### M ERICK Faith, PHOS #### [facility] [address] [place] [address] Dr. David Magana IG % 2.0 % Critically high 0.0-0.[address] [facility] Comment on above: Performed By: #### ERICK Jacques, PHOS #### [facility] [address] [place] [address] Dr. David Magana LYMPH # 0.8 103/ul Critically low 1.2-3.8 [facility] Comment on above: Performed By: #### ERICK Jacques, PHOS #### [facility] [address] [place] [address] Dr. David Magana Lymphocytes/100 WBC (Bld) 7.7 % Critically low 20.5-60.0 [facility] Comment on above: Performed By: #### ERICK Jacques, PHOS #### [facility] [address] [place] [address] Dr. David Magana MANUAL DIFF REQ NO Normal [facility] Comment on above: Performed By: #### ERICK Jacques, PHOS #### [facility] [address] [place] [address] Dr. David Magana MCH (RBC) [Entitic mass] 33.2 pg Normal 25.9-34.0 [facility] Comment on above: Performed By: #### ERICK Jacques, PHOS #### [facility] [address] [place] [address] Dr. David Magana MCHC (RBC) [Mass/Vol] 32.9 g/dL Normal 29.9-35.2 [facility] Comment on above: Performed By: #### ERICK Jacques, PHOS #### [facility] [address] [place] [address] Dr. David Magana MCV (RBC) [Entitic vol] 100.9 fL Critically high 80.0-94.0 [facility] Comment on above: Performed By: #### M G, BMP, PHOS #### [facility] [address] [address] [address] David Magana MONO # 1.0 103/ul Critically high 0.3-0.8 [facility] Comment on above: Performed By: #### M G, BMP, PHOS #### [facility] [address] [address] [address] David Magana Monocytes/100 WBC (Bld) 10.0 % Normal 1.7-12.0 [facility] Comment on above: Performed By: #### M G, BMP, PHOS #### [facility] [address] [place] [address] Dr. David Magana NEUT # 8.1 103/ul Critically high 1.4-6.5 [facility] Comment on above: Performed By: #### M G, BMP, PHOS #### [facility] [address] [place] [address] Dr. David Magana Neutrophils/100 WBC (Bld) 78.9 % Critically high 43.0-75.0 [facility] Comment on above: Performed By: #### M G, BMP, PHOS #### [facility] [address] [address] [address] David Magana Platelet mean volume (Bld) [Entitic vol] 10.8 fL Normal 9.5-13.5 [facility] Comment on above: Performed By: #### M G, BMP, PHOS #### [facility] [address] [place] [address] Dr. David Magana PLT 172 103/ul Normal 150-450 [facility] Comment on above: Performed By: #### M G, BMP, PHOS #### [facility] [address] [address] [address] David Magana RBC 4.28 106/ul Critically low 4.70-6.10 [facility] Comment on above: Performed By: #### M G, BMP, PHOS #### [facility] [address] [place] [address] Dr. David Magana WBC 10.3 103/ul Normal 4.0-11.0 [facility] Comment on above: Performed By: #### M ERICK Faith, PHOS #### [facility] [address] [place] [address] Dr. David Magana CULTURE URINEon 07-20-2022 CULTURE [...] F Trimethoprim/Sulfameth oxazole >=320 R F Normal [facility] Comment on above: Performed By: #### ERICK Jacques, PHOS #### [facility] [address] [place] [address] Dr. David Magana PROF 14(COMP METB)on 022 Albumin [Mass/Vol] 2.6 g/dL Critically low 3.4-5.0 Th [facility] Comment on above: Performed By: #### A 1C #### [facility] [address] [place] [address] Dr. David Magana Albumin/Globulin [Mass ratio] 0.9 {ratio} Normal [facility] Comment on above: Performed By: #### A 1C #### [facility] [address] [place] [address] Dr. David Magana ALP [Catalytic activity/Vol] 48 U/L Normal 46-116 [facility] Comment on above: Performed By: #### A 1C #### [facility] [address] [place] [address] Dr. David Magana ALT [Catalytic activity/Vol] 27 U/L Normal 16-63 [facility] Comment on above: Performed By: #### A 1C #### [facility] [address] [place], [place] [id number] Dr. David Magana Anion gap [Moles/Vol] 13.4 mmol/L Normal [facility] Comment on above: Performed By: #### A 1C #### [facility] [address] [place] [address] Dr. David Magana AST [Catalytic activity/Vol] 22 U/L Normal 15-37 [facility] Comment on above: Performed By: #### A 1C #### [facility] [address] [address] [address] David Magana Bilirubin [Mass/Vol] 0.5 mg/dL Normal 0.2-1.0 [facility] Comment on above: Performed By: #### A 1C #### [facility] [address] [place] [address] Dr. David Magana Calcium [Mass/Vol] 8.3 mg/dL Critically low 8.5-10.1 Th [facility] Comment on above: Performed By: #### A 1C #### [facility] [address] [place] [address] Dr. David Magana Chloride [Moles/Vol] 105 mmol/L Normal 98-107 [facility] Comment on above: Performed By: #### A 1C #### [facility] [address] [place] [address] Dr. David Magana CO2 [Moles/Vol] 21.0 mmol/L Normal 21.0-32.0 [facility] Comment on above: Performed By: #### A 1C #### [facility] [address] [place] [address] Dr. David Magana Creatinine [Mass/Vol] 1.38 mg/dL Critically high 0.70-1.30 [facility] Comment on above: Performed By: #### A 1C #### [facility] [address] [place] [address] Dr. David Magana EGFR-AF WELSH 60 mL/min/1.73m2 Normal >=60 Th [facility] Comment on above: Performed By: #### A 1C #### [facility] [address] [place] [address] Dr. David Magana EGFR-NON AF WELSH 49 mL/min/1.73m2 Critically low >=60 [facility] Comment on above: Performed By: #### A 1C #### [facility] [address] [place] [address] Dr. David Magana Globulin (S) [Mass/Vol] 2.8 g/dL Normal [facility] Comment on above: Performed By: #### A 1C #### [facility] [address] [address] [address] David Magana Glucose [Mass/Vol] 156 mg/dL Critically high 74-106 T [facility] Comment on above: Performed By: #### A 1C #### [facility] [address] [place] [address] Dr. David Magana Potassium [Moles/Vol] 4.4 mmol/L Normal 3.5-5.1 [facility] Comment on above: Performed By: #### A 1C #### [facility] [address] [place] [address] Dr. David Magana Protein [Mass/Vol] 5.4 g/dL Critically low 6.4-8.2 Th [facility] Comment on above: Performed By: #### A 1C #### [facility] [address] [place] [address] Dr. David Magana Sodium [Moles/Vol] 135 mmol/L Critically low 136-145 Th [facility] Comment on above: Performed By: #### A 1C #### [facility] [address] [place] [address] Dr. David Magana Urea nitrogen [Mass/Vol] 40.0 mg/dL Critically high 7.0-18.0 [facility] Comment on above: Performed By: #### A 1C #### [facility] [address] [place] [address] Dr. David Magana Urea nitrogen/Creatinine [Mass ratio] 29.0 mg/mg Normal [facility] Comment on above: Performed By: #### A 1C #### [facility] [address] [place] [address] Dr. David Magana BNPon 07-19-2022 Natriuretic peptide B (Bld) [Mass/Vol] 73100.0 pg/mL Critically high <=1,800.0 [facility] Comment on above: Performed By: #### C VDTB #### [facility] [address] [place] [address] Dr. David Magana CBC AUTO DIFFon 07-19-2022 BASO # 0.0 103/ul Normal 0.0-0.1 [facility] Comment on above: Performed By: #### C BC #### [facility] [address] [place] [address] Dr. David Magana Basophils/100 WBC (Bld) 0.3 % Normal 0.2-2.0 [facility] Comment on above: Performed By: #### C BC #### [facility] [address] [place] [address] Dr. David Magana EO # 0.0 103/ul Normal 0.0-0.7 [facility] Comment on above: Performed By: #### C BC #### [facility] [address] [place] [address] Dr. David Magana Eosinophils/100 WBC (Bld) 0.2 % Critically low 0.9-7.0 [facility] Comment on above: Performed By: #### C BC #### [facility] [address] [place] [address] Dr. David Magana Erythrocyte distribution width (RBC) [Ratio] 13.4 % Normal 11.0-15.0 [facility] Comment on above: Performed By: #### C BC #### [facility] [address] [place] [address] Dr. David Magana Hematocrit (Bld) [Volume fraction] 43.4 % Normal 42.0-54.0 [facility] Comment on above: Performed By: #### C BC #### [facility] [address] [place] [address] Dr. David Magana Hemoglobin (Bld) [Mass/Vol] 14.6 g/dL Normal 14.0-18.0 [facility] Comment on above: Performed By: #### C BC #### [facility] [address] [address] [address] David Magana IG # 0.18 10e3/ul Critically high 0.00-0.03 [facility] Comment on above: Performed By: #### C BC #### [facility] [address] [address] [address] David Magana IG % 1.5 % Critically high 0.0-0.[address] [facility] Comment on above: Performed By: #### C BC #### [facility] [address] [place] [address] Dr. David Magana LYMPH # 0.8 103/ul Critically low 1.2-3.8 [facility] Comment on above: Performed By: #### C BC #### [facility] [address] [place] [address] Dr. David Magana Lymphocytes/100 WBC (Bld) 6.6 % Critically low 20.5-60.0 [facility] Comment on above: Performed By: #### C BC #### [facility] [address] [place] [address] Dr. David Magana MANUAL DIFF REQ NO Normal [facility] Comment on above: Performed By: #### C BC #### [facility] [address] [place] [address] Dr. David Magana MCH (RBC) [Entitic mass] 33.7 pg Normal 25.9-34.0 [facility] Comment on above: Performed By: #### C BC #### [facility] [address] [place] [address] Dr. David Magana MCHC (RBC) [Mass/Vol] 33.6 g/dL Normal 29.9-35.2 [facility] Comment on above: Performed By: #### C BC #### [facility] [address] [place] [address] Dr. David Magana MCV (RBC) [Entitic vol] 100.2 fL Critically high 80.0-94.0 [facility] Comment on above: Performed By: #### C BC #### [facility] [id number] David Magana MONO # 1.1 103/ul Critically high 0.3-0.8 [facility] Comment on above: Performed By: #### C BC #### [facility] [id number] David Magana Monocytes/100 WBC (Bld) 9.3 % Normal 1.7-12.0 [facility] Comment on above: Performed By: #### C BC #### [facility] [address] [address] [address] David Magana NEUT # 9.6 103/ul Critically high 1.4-6.5 [facility] Comment on above: Performed By: #### C BC #### [facility] [address] [place] [address] Dr. David Magana Neutrophils/100 WBC (Bld) 82.1 % Critically high 43.0-75.0 [facility] Comment on above: Performed By: #### C BC #### [facility] [address] [address] [address] David Magana Platelet mean volume (Bld) [Entitic vol] 10.8 fL Normal 9.5-13.5 [facility] Comment on above: Performed By: #### C BC #### [facility] [id number] David Magana PLT 202 103/ul Normal 150-450 [facility] Comment on above: Performed By: #### C BC #### [facility] [address] [place] [address] Dr. David Magana RBC 4.33 106/ul Critically low 4.70-6.10 [facility] Comment on above: Performed By: #### C BC #### [facility] [id number] David Magana WBC 11.7 103/ul Critically high 4.0-11.0 [facility] Comment on above: Performed By: #### C BC #### [facility] [address] [place] [address] Dr. David Magana PROF 14(COMP METB)on 022 Albumin [Mass/Vol] 3.4 g/dL Normal 3.4-5.[address] [facility] Comment on above: Performed By: #### A 1C #### [facility] [address] [place] [address] Dr. David Magana Albumin/Globulin [Mass ratio] 1.1 {ratio} Normal [facility] Comment on above: Performed By: #### A 1C #### [facility] [address] [place] [address] Dr. David Magana ALP [Catalytic activity/Vol] 63 U/L Normal 46-116 [facility] Comment on above: Performed By: #### A 1C #### [facility] [address] [place] [address] Dr. David Magana ALT [Catalytic activity/Vol] 34 U/L Normal 16-63 [facility] Comment on above: Performed By: #### A 1C #### [facility] [address] [place] [address] Dr. David Magana Anion gap [Moles/Vol] 20.9 mmol/L Normal [facility] Comment on above: Performed By: #### A 1C #### [facility] [address] [place] [address] Dr. David Magana AST [Catalytic activity/Vol] 18 U/L Normal 15-37 [facility] Comment on above: Performed By: #### A 1C #### [facility] [address] [place] [address] Dr. David Magana Bilirubin [Mass/Vol] 0.5 mg/dL Normal 0.2-1.0 [facility] Comment on above: Performed By: #### A 1C #### [facility] [address] [place] [address] Dr. David Magana Calcium [Mass/Vol] 8.5 mg/dL Normal 8.5-10.[address] [facility] Comment on above: Performed By: #### A 1C #### [facility] [address] [place] [address] Dr. David Magana Chloride [Moles/Vol] 99 mmol/L Normal 98-107 [facility] Comment on above: Performed By: #### A 1C #### [facility] [address] [place] [address] Dr. David Magana CO2 [Moles/Vol] 19.1 mmol/L Critically low 21.0-32.0 [facility] Comment on above: Performed By: #### A 1C #### [facility] [address] [place] [address] Dr. David Magana Creatinine [Mass/Vol] 1.80 mg/dL Critically high 0.70-1.30 [facility] Comment on above: Performed By: #### A 1C #### [facility] [address] [place] [address] Dr. David Magana EGFR-AF WELSH 44 mL/min/1.73m2 Critically low >=60 [facility] Comment on above: Performed By: #### A 1C #### [facility] [address] [place] [address] Dr. David Magana EGFR-NON AF WELSH 36 mL/min/1.73m2 Critically low >=60 [facility] Comment on above: Performed By: #### A 1C #### [facility] [address] [place] [address] Dr. David Magana Globulin (S) [Mass/Vol] 3.2 g/dL Normal [facility] Comment on above: Performed By: #### A 1C #### [facility] [address] [place] [address] Dr. David Magana Glucose [Mass/Vol] 287 mg/dL Critically high 74-106 T [facility] Comment on above: Performed By: #### A 1C #### [facility] [address] [address] [address] David Magana Potassium [Moles/Vol] 5.0 mmol/L Normal 3.5-5.1 [facility] Comment on above: Performed By: #### A 1C #### [facility] [address] [place] [address] Dr. David Magana Protein [Mass/Vol] 6.6 g/dL Normal 6.4-8.[address] [facility] Comment on above: Performed By: #### A 1C #### [facility] [address] [place] [address] Dr. David Magana Sodium [Moles/Vol] 134 mmol/L Critically low 136-145 Th [facility] Comment on above: Performed By: #### A 1C #### [facility] [address] [place] [address] Dr. David Magana Urea nitrogen [Mass/Vol] 51.0 mg/dL Critically high 7.0-18.0 [facility] Comment on above: Performed By: #### A 1C #### [facility] [address] [place] [address] Dr. David Magana Urea nitrogen/Creatinine [Mass ratio] 28.3 mg/mg [facility] Comment on above: Performed By: #### A 1C #### [facility] [address] [place] [address] Dr. David Magana BLOOD GASES [facility] 07-18-2022 02 MODE NASAL CANNULA [facility] Comment on above: Performed By: #### A 1C #### [facility] [address] [place] [address] Dr. David Magana ALLENS TEST Positive [facility] Comment on above: Performed By: #### A 1C #### [facility] [address] [place] [address] Dr. David Magana Base excess Calc (Bld) [Moles/Vol] -9.0000 mmol/L Critically low -2.0-2.0 [facility] Comment on above: Performed By: #### A 1C #### [facility] [address] [place] [address] Dr. David Magana BIPAP PRESSURE Normal [facility] Comment on above: Performed By: #### A 1C #### [facility] [address] [place] [address] Dr. David Magana CPAP [facility] Comment on above: Performed By: #### A 1C #### [facility] [address] [address] [address] David Magana FIO2 Normal [facility] Comment on above: Performed By: #### A 1C #### [facility] [address] [place] [address] Dr. David Magana HCO3 (Bld) [Moles/Vol] 18.4 mmol/L Critically low 22.0-26.0 [facility] Comment on above: Performed By: #### A 1C #### [facility] [address] [place] [address] Dr. David Magana LPM 1.5 Normal [facility] Comment on above: Performed By: #### A 1C #### [facility] [address] [place] [address] Dr. David Magana MINUTE VOLUME Normal [facility] Comment on above: Performed By: #### A 1C #### [facility] [address] [place] [address] Dr. David Magana Oxygen (Bld) [Partial pressure] 69.5 mm[Hg] Critically low 80.0-100.0 [facility] Comment on above: Performed By: #### A 1C #### [facility] [address] [place] [address] Dr. David Magana Oxygen saturation in Blood 94.2 % Critically low 95.0-100.0 [facility] Comment on above: Performed By: #### A 1C #### [facility] [address] [place] [address] Dr. David Magana PCO2 29.6 mmHg Critically low 35.0-45.0 [facility] Comment on above: Performed By: #### A 1C #### [facility] [address] [place] [address] Dr. David Magana PEEP [facility] Comment on above: Performed By: #### A 1C #### [facility] [address] [place] [address] Dr. David Magana pH (Bld) 7.355 [pH] Normal 7.350-7.450 [facility] Comment on above: Performed By: #### A 1C #### [facility] [address] [place] [address] Dr. David Magana [facility] Comment on above: Performed By: #### A 1C #### [facility] [address] [place] [address] Dr. David Magana [facility] Comment on above: Performed By: #### A 1C #### [facility] [address] [place] [address] Dr. David Magana PUNCTURE SITE LR [facility] Comment on above: Performed By: #### A 1C #### [facility] [address] [place] [address] Dr. David Magana [facility] Comment on above: Performed By: #### A 1C #### [facility] [address] [place] [address] Dr. David Magana VENT [facility] Comment on above: Performed By: #### A 1C #### [facility] [address] [place] [address] Dr. David Magana [facility] Comment on above: Performed By: #### A 1C #### [facility] [address] [place] [address] Dr. David Magana BNPon 07-18-2022 Natriuretic peptide B (Bld) [Mass/Vol] 7047.0 pg/mL Critically high <=1,800.0 [facility] Comment on above: Performed By: #### C VDTBH #### [facility] [address] [place] [address] Dr. David Magana CARDIAC BARRIE 3-6on 2 CK [Catalytic activity/Vol] 396 U/L Critically high 39-308 [facility] Comment on above: Performed By: #### M ERICK Faith, PHOS #### [facility] [address] [place] [address] Dr. David Magana CK.MB [Mass/Vol] 2.94 ng/mL Normal <=3.60 [facility] Comment on above: Performed By: #### M ERICK Faith, PHOS #### [facility] [address] [place] [address] Dr. David Magana HSTROP 11.1 pg/mL Normal 4.0-76.1 [facility] Comment on above: Result Comment: CUT- OFF POINTS HAVE BEEN ESTABLISHED BASED ON THE FOURTH UNIVERSAL DEFINITIONS OF MYOCARDIAL INFARCTION. THE UPPER REFERENCE LIMIT (URL) OF TROPONIN, DEFINED THE 99TH PERCENTILE OF cTnI DISTRIBUTION IN A REFERENCE POPULATION, HAS BEEN CONFIRMED THE DECISION THRESHOLD FOR PA DIAGNOSIS. Performed By: #### ERICK Jacques, PHOS #### [facility] [address] [address] [address] David Magana CK [Catalytic activity/Vol] 58 U/L Normal 39-308 [facility] Comment on above: Performed By: #### ERICK Jacques, PHOS #### [facility] [address] [place] [address] Dr. David Magana CK.MB [Mass/Vol] 1.71 ng/mL Normal <=3.60 [facility] Comment on above: Performed By: #### ERICK Jacques, PHOS #### [facility] [address] [place] [address] Dr. David Magana HSTROP 10.6 pg/mL Normal 4.0-76.1 [facility] Comment on above: Result Comment: CUT- OFF POINTS HAVE BEEN ESTABLISHED BASED ON THE FOURTH UNIVERSAL DEFINITIONS OF MYOCARDIAL INFARCTION. THE UPPER REFERENCE LIMIT (URL) OF TROPONIN, DEFINED THE 99TH PERCENTILE OF cTnI DISTRIBUTION IN A REFERENCE POPULATION, HAS BEEN CONFIRMED THE DECISION THRESHOLD FOR PA DIAGNOSIS. Performed By: #### ERICK Jacques PHOS #### [facility] [address] [place] [address] Dr. David Magana CBC AUTO DIFFon 07-18-2022 BASO # 0.0 103/ul Normal 0.0-0.1 [facility] Comment on above: Performed By: #### ERICK Jacques, PHOS #### [facility] [address] [place] [address] Dr. David Magana Basophils/100 WBC (Bld) 0.2 % Normal 0.2-2.0 [facility] Comment on above: Performed By: #### ERICK Jacques, PHOS #### [facility] [address] [place] [address] Dr. David Magana EO # 0.0 103/ul Normal 0.0-0.7 [facility] Comment on above: Performed By: #### M G, BMP, PHOS #### [facility] [address] [place] [address] Dr. David Magana Eosinophils/100 WBC (Bld) 0.2 % Critically low 0.9-7.0 [facility] Comment on above: Performed By: #### M G, BMP, PHOS #### [facility] [address] [place] [address] Dr. David Magana Erythrocyte distribution width (RBC) [Ratio] 13.2 % Normal 11.0-15.0 [facility] Comment on above: Performed By: #### M G, BMP, PHOS #### [facility] [address] [place] [address] Dr. David Magana Hematocrit (Bld) [Volume fraction] 43.8 % Normal 42.0-54.0 [facility] Comment on above: Performed By: #### M G, BMP, PHOS #### [facility] [address] [place] [address] Dr. David Magana Hemoglobin (Bld) [Mass/Vol] 14.5 g/dL Normal 14.0-18.0 [facility] Comment on above: Performed By: #### M G, BMP, PHOS #### [facility] [address] [place] [address] Dr. David Magana IG # 0.15 10e3/ul Critically high 0.00-0.03 [facility] Comment on above: Performed By: #### M G, BMP, PHOS #### [facility] [address] [place] [address] Dr. David Magana IG % 1.3 % Critically high 0.0-0.[address] [facility] Comment on above: Performed By: #### M G, BMP, PHOS #### [facility] [address] [place] [address] Dr. David Magana LYMPH # 0.5 103/ul Critically low 1.2-3.8 [facility] Comment on above: Performed By: #### ERICK Jacques, PHOS #### [facility] [address] [place] [address] Dr. David Magana Lymphocytes/100 WBC (Bld) 3.8 % Critically low 20.5-60.0 [facility] Comment on above: Performed By: #### ERICK Jacques, PHOS #### [facility] [address] [place] [address] Dr. David Magana MANUAL DIFF REQ NO Normal [facility] Comment on above: Performed By: #### ERICK Jacques, PHOS #### [facility] [address] [place] [address] Dr. David Magana MCH (RBC) [Entitic mass] 32.7 pg Normal 25.9-34.0 [facility] Comment on above: Performed By: #### ERICK Jacques, PHOS #### [facility] [address] [place] [address] Dr. David Magana MCHC (RBC) [Mass/Vol] 33.1 g/dL Normal 29.9-35.2 [facility] Comment on above: Performed By: #### ERICK Jacques, PHOS #### [facility] [address] [place] [address] Dr. David Magana MCV (RBC) [Entitic vol] 98.9 fL Critically high 80.0-94.0 [facility] Comment on above: Performed By: #### ERICK Jacques, PHOS #### [facility] [address] [place] [address] Dr. David Magana MONO # 0.7 103/ul Normal 0.3-0.8 [facility] Comment on above: Performed By: #### ERICK Jacques, PHOS #### [facility] [address] [place] [address] Dr. David Magana Monocytes/100 WBC (Bld) 5.7 % Normal 1.7-12.0 [facility] Comment on above: Performed By: #### M Marcell BMP, PHOS #### [facility] [address] [address] [address] David Magana NEUT # 10.4 103/ul Critically high 1.4-6.5 [facility] Comment on above: Performed By: #### M Marcell BMP, PHOS #### [facility] [address] [place] [address] Dr. David Magana Neutrophils/100 WBC (Bld) 88.8 % Critically high 43.0-75.0 [facility] Comment on above: Performed By: #### M Marcell, BMP, PHOS #### [facility] [address] [place] [address] Dr. David Magana Platelet mean volume (Bld) [Entitic vol] 11.0 fL Normal 9.5-13.5 [facility] Comment on above: Performed By: #### ERICK Jacques, PHOS #### [facility] [address] [place] [address] Dr. David Magana PLT 198 103/ul Normal 150-450 [facility] Comment on above: Performed By: #### ERICK Jacques, PHOS #### [facility] [address] [place] [address] Dr. David Magana RBC 4.43 106/ul Critically low 4.70-6.10 [facility] Comment on above: Performed By: #### ERICK Jacques, PHOS #### [facility] [address] [place] [address] Dr. David Magana WBC 11.8 103/ul Critically high 4.0-11.0 [facility] Comment on above: Performed By: #### M ERICK Faith, PHOS #### [facility] [address] [place] [address] HEAD WO CONon [...] FRANCISCO ZELAYA Date: 2022-07-18 05:12 Normal [facility] Covid-19 PCR (CVDTBH)on SARS-CoV-2 (COVID-19) RNA SULTANA+probe Ql (Unsp spec) Detected Critically abnormal NOT DETECTED [facility] Comment on above: Result Comment: This test is not yet approved or cleared by the [place] FDA. When there are no FDA-approved or cleared tests available, and other criteria are met, FDA can make tests available under an emergency access mechanism called an Emergency Use Authorization (EUA). The EUA for this test is supported by the [place] of Health and Human Service's declaration that [...] used). Performed By: #### C VDTB #### [facility] [address] [address] [address] David Magana D-DIMERon 07-18-2022 D-DIMER 1.69 mg/L FEU Critically high <=0.59 [facility] Comment on above: Performed By: #### C BC #### [facility] [address] [address] [address] David Magana D-DIMER COMMENTS SEE BELOW Normal [facility] Comment on above: Result Comment: [...] hospitalization. Performed By: #### C BC #### [facility] [address] [place] [address] Dr. David Magana POINT OF CARE GLUCOSEon Glucose [Mass/Vol] 329 mg/dL Critically high 74-106 [facility] Comment on above: Performed By: #### P OCGLUC #### [facility] [address] [place] [address] Dr. David Magana Glucose [Mass/Vol] 354 mg/dL Critically high -106 [facility] Comment on above: Performed By: #### P OCGLUC #### [facility] [address] [place] [address] Dr. David Magana PROF 14(COMP METB)on 022 Albumin [Mass/Vol] 3.6 g/dL Normal 3.4-5.[address] [facility] Comment on above: Performed By: #### C VDTBH #### [facility] [address] [place] [address] Dr. David Magana Albumin/Globulin [Mass ratio] 1.1 {ratio} Normal [facility] Comment on above: Performed By: #### C VDTBH #### [facility] [address] [place] [address] Dr. David Magana ALP [Catalytic activity/Vol] 67 U/L Normal 46-116 [facility] Comment on above: Performed By: #### C VDTBH #### [facility] [address] [place] [address] Dr. David Magana ALT [Catalytic activity/Vol] 33 U/L Normal 16-63 [facility] Comment on above: Performed By: #### C VDTBH #### [facility] [address] [place] [address] Dr. David Magana Anion gap [Moles/Vol] 23.5 mmol/L Normal [facility] Comment on above: Performed By: #### C VDTBH #### [facility] [address] [place] [address] Dr. David Magana AST [Catalytic activity/Vol] 13 U/L Critically low 15-37 [facility] Comment on above: Performed By: #### C VDTBH #### [facility] [address] [place] [address] Dr. David Magana Bilirubin [Mass/Vol] 0.6 mg/dL Normal 0.2-1.0 [facility] Comment on above: Performed By: #### C VDTBH #### [facility] [address] [place] [address] Dr. David Magana Calcium [Mass/Vol] 8.4 mg/dL Critically low 8.5-10.1 [facility] Comment on above: Performed By: #### C VDTBH #### [facility] [address] [place] [address] Dr. David Magana Chloride [Moles/Vol] 93 mmol/L Critically low 98-107 [facility] Comment on above: Performed By: #### C VDTBH #### [facility] [address] [place] [address] Dr. David Magana CO2 [Moles/Vol] 17.9 mmol/L Critically low 21.0-32.0 [facility] Comment on above: Performed By: #### C VDTBH #### [facility] [address] [place] [address] Dr. David Magana Creatinine [Mass/Vol] 2.15 mg/dL Critically high 0.70-1.30 [facility] Comment on above: Performed By: #### C VDTBH #### [facility] [address] [place] [address] Dr. David Magana EGFR-AF WELSH 36 mL/min/1.73m2 Critically low >=60 [facility] Comment on above: Performed By: #### C VDTBH #### [facility] [address] [place] [address] Dr. David Magana EGFR-NON AF WELSH 30 mL/min/1.73m2 Critically low >=60 [facility] Comment on above: Performed By: #### C VDTBH #### [facility] [address] [address] [address] David Magana Globulin (S) [Mass/Vol] 3.2 g/dL Normal [facility] Comment on above: Performed By: #### C VDTBH #### [facility] [address] [address] [address] David Magana Glucose [Mass/Vol] 345 mg/dL Critically high 74-106 [facility] Comment on above: Performed By: #### C VDTBH #### [facility] [address] [place] [address] Dr. David Magana Potassium [Moles/Vol] 5.4 mmol/L Critically high 3.5-5.1 [facility] Comment on above: Performed By: #### C VDTBH #### [facility] [address] [place] [address] Dr. David Magana Performed By: #### K #### [facility] [address] [place] [address] Dr. David Magana Protein [Mass/Vol] 6.8 g/dL Normal 6.4-8.[address] [facility] Comment on above: Performed By: #### C VDTBH #### [facility] [address] [place] [address] Dr. David Magana Sodium [Moles/Vol] 129 mmol/L Critically low 136-145 [facility] Comment on above: Performed By: #### C VDTBH #### [facility] [address] [place] [address] Dr. David Magana Urea nitrogen [Mass/Vol] 65.0 mg/dL Critically high 7.0-18.0 [facility] Comment on above: Performed By: #### C VDTBH #### [facility] [address] [place] [address] Dr. David Magana Urea nitrogen/Creatinine [Mass ratio] 30.2 mg/mg Normal [facility] Comment on above: Performed By: #### C VDTBH #### [facility] [address] [address] [address] David Magana UA RANDOM W/MICROSCOPICon BACTERIA NONE SEEN Normal NONE SEEN [facility] Comment on above: Performed By: #### M G, BMP, PHOS #### [facility] [address] [place] [address] Dr. David Magana Bilirubin Ql (U) Negative Normal NEGATIVE [facility] Comment on above: Performed By: #### M G, BMP, PHOS #### [facility] [address] [place] [address] Dr. David Mgaana CAST NONE SEEN Normal NONE SEEN [facility] Comment on above: Performed By: #### M G, BMP, PHOS #### [facility] [address] [place] [address] Dr. David Magana Clarity (U) CLEAR Normal CLEAR [facility] Comment on above: Performed By: #### M G, BMP, PHOS #### [facility] [address] [place] [address] Dr. David Magana Color (U) LT. YELLOW Normal YELLOW [facility] Comment on above: Performed By: #### M Marcell, BMP, PHOS #### [facility] [address] [place] [address] Dr. David Magana Crystals LM Nom (Urine sed) NONE SEEN Normal NONE SEEN [facility] Comment on above: Performed By: #### M G, BMP, PHOS #### [facility] [address] [place] [address] Dr. David Magana Epithelial cells LM Ql (Urine sed) RARE Normal NONE SEEN /RARE [facility] Comment on above: Performed By: #### M G, BMP, PHOS #### [facility] [address] [place] [address] Dr. David Magana Glucose Ql (U) 1000 mg/dl Abnormal NEGATIVE [facility] Comment on above: Performed By: #### M Marcell, BMP, PHOS #### [facility] [address] [address] [address] David Magana Hemoglobin Ql (U) Negative Normal NEGATIVE [facility] Comment on above: Performed By: #### M G, BMP, PHOS #### [facility] [address] [address] [address] David Magana Ketones Ql (U) 15 mg/dl Abnormal NEGATIVE [facility] Comment on above: Performed By: #### M G, BMP, PHOS #### [facility] [address] [address] [address] David Magana LEUKOCYTES Negative Normal NEGATIVE [facility] Comment on above: Performed By: #### M G, BMP, PHOS #### [facility] [address] [place] [address] Dr. David Magana MUCOUS NONE SEEN Normal NONE SEEN [facility] Comment on above: Performed By: #### M G, BMP, PHOS #### [facility] [address] [place] [address] Dr. David Magana Nitrite Ql (U) Negative Normal NEGATIVE [facility] Comment on above: Performed By: #### M G, BMP, PHOS #### [facility] [address] [place] [address] Dr. David Magana pH (U) 5.5 [pH] Normal 5-9 [facility] Comment on above: Performed By: #### M G, BMP, PHOS #### [facility] [address] [place] [address] Dr. David Magana RBC NONE SEEN Abnormal 0-2 [facility] Comment on above: Performed By: #### M G, BMP, PHOS #### [facility] [address] [place] [address] Dr. David Magana SPEC GRAVITY <=1.005 Abnormal 1.005-<=1.02 5 [facility] Comment on above: Performed By: #### M G, BMP, PHOS #### [facility] [address] [place] [address] Dr. David Magana UA PROTEIN Negative Normal NEGATIVE/ TRACE [facility] Comment on above: Performed By: #### M G, BMP, PHOS #### [facility] [address] [address] [address] David Magana Urobilinogen Qn (U) 0.2 {Dionna'U}/dL Normal 0.2 - 1. 0 [facility] Comment on above: Performed By: #### M Marcell, BMP, PHOS #### [facility] [address] [address] [address] David Magana WBC NONE SEEN Normal NONE SEEN [facility] Comment on above: Performed By: #### M G, BMP, PHOS #### [facility] [address] [address] [address] David Magana XR CHEST 1 Von [...] Yefri DWYER Date: 2022-07-18 00:09 Normal [facility] CARDIAC BARRIE ADMITon 022 CK [Catalytic activity/Vol] 61 U/L Normal 39-308 [facility] Comment on above: Performed By: #### C BC #### [facility] [address] [place] [address] Dr. David Magana CK.MB [Mass/Vol] 1.84 ng/mL Normal <=3.60 [facility] Comment on above: Performed By: #### C BC #### [facility] [address] [address] [address] David Magana HSTROP 9.4 pg/mL Normal 4.0-76.1 [facility] Comment on above: Result Comment: CUT- OFF POINTS HAVE BEEN ESTABLISHED BASED ON THE FOURTH UNIVERSAL DEFINITIONS OF MYOCARDIAL INFARCTION. THE UPPER REFERENCE LIMIT (URL) OF TROPONIN, DEFINED THE 99TH PERCENTILE OF cTnI DISTRIBUTION IN A REFERENCE POPULATION, HAS BEEN CONFIRMED THE DECISION THRESHOLD FOR PA DIAGNOSIS. Performed By: #### C BC #### [facility] [address] [place] [address] Dr. David Magana DUSTIN 533 ng/mL Critically high 16-[address] [facility] Comment on above: Performed By: #### C BC #### [facility] [address] [place] [address] Dr. David Magana CBC AUTO DIFFon 07-17-2022 BASO # 0.0 103/ul Normal 0.0-0.1 [facility] Comment on above: Performed By: #### M G, BMP, PHOS #### [facility] [address] [place] [address] Dr. David Magana Basophils/100 WBC (Bld) 0.2 % Normal 0.2-2.0 [facility] Comment on above: Performed By: #### M G, BMP, PHOS #### [facility] [address] [place] [address] Dr. David Magana EO # 0.0 103/ul Normal 0.0-0.7 [facility] Comment on above: Performed By: #### M G, BMP, PHOS #### [facility] [address] [place] [address] Dr. David Magana Eosinophils/100 WBC (Bld) 0.1 % Critically low 0.9-7.0 [facility] Comment on above: Performed By: #### M G, BMP, PHOS #### [facility] [address] [place] [address] Dr. David Magana Erythrocyte distribution width (RBC) [Ratio] 13.2 % Normal 11.0-15.0 [facility] Comment on above: Performed By: #### M G, BMP, PHOS #### [facility] [address] [place] [address] Dr. David Magana Hematocrit (Bld) [Volume fraction] 43.1 % Normal 42.0-54.0 [facility] Comment on above: Performed By: #### M G, BMP, PHOS #### [facility] [address] [place] [address] Dr. David Magana Hemoglobin (Bld) [Mass/Vol] 14.5 g/dL Normal 14.0-18.0 [facility] Comment on above: Performed By: #### M ERICK Faith, PHOS #### [facility] [address] [place] [address] Dr. David Magana IG # 0.14 10e3/ul Critically high 0.00-0.03 [facility] Comment on above: Performed By: #### M ERICK Faith, PHOS #### [facility] [address] [place] [address] Dr. David Magana IG % 1.2 % Critically high 0.0-0.5 [facility] Comment on above: Performed By: #### ERICK Jacques, PHOS #### [facility] [address] [place] [address] Dr. David Magana LYMPH # 0.4 103/ul Critically low 1.2-3.8 [facility] Comment on above: Performed By: #### ERICK Jacques, PHOS #### [facility] [address] [place] [address] Dr. David Magana Lymphocytes/100 WBC (Bld) 3.4 % Critically low 20.5-60.0 [facility] Comment on above: Performed By: #### ERICK Jacques, PHOS #### [facility] [address] [place] [address] Dr. David Magana MANUAL DIFF REQ NO Normal [facility] Comment on above: Performed By: #### ERICK Jacques, PHOS #### [facility] [address] [place] [address] Dr. David Magana MCH (RBC) [Entitic mass] 33.3 pg Normal 25.9-34.0 [facility] Comment on above: Performed By: #### ERICK Jacques, PHOS #### [facility] [address] [place] [address] Dr. David Magana MCHC (RBC) [Mass/Vol] 33.6 g/dL Normal 29.9-35.2 [facility] Comment on above: Performed By: #### M G, BMP, PHOS #### [facility] [address] [place] [address] Dr. David Magana MCV (RBC) [Entitic vol] 98.9 fL Critically high 80.0-94.0 [facility] Comment on above: Performed By: #### M G, BMP, PHOS #### [facility] [address] [place] [address] Dr. David Magana MONO # 1.1 103/ul Critically high 0.3-0.[address] [facility] Comment on above: Performed By: #### M G, BMP, PHOS #### [facility] [address] [place] [address] Dr. David Magana Monocytes/100 WBC (Bld) 8.9 % Normal 1.7-12.0 [facility] Comment on above: Performed By: #### M Macrell BMP, PHOS #### [facility] [address] [place] [address] Dr. David Magana NEUT # 10.3 103/ul Critically high 1.4-6.5 [facility] Comment on above: Performed By: #### M Marcell BMP, PHOS #### [facility] [address] [place] [address] Dr. David Magana Neutrophils/100 WBC (Bld) 86.2 % Critically high 43.0-75.0 [facility] Comment on above: Performed By: #### M Marcell BMP, PHOS #### [facility] [address] [place] [address] Dr. David Magana Platelet mean volume (Bld) [Entitic vol] 11.1 fL Normal 9.5-13.5 [facility] Comment on above: Performed By: #### M Marcell BMP, PHOS #### [facility] [address] [place] [address] Dr. David Magana PLT 229 103/ul Normal 150-450 [facility] Comment on above: Performed By: #### M Marcell, BMP, PHOS #### [facility] [address] [place] [address] Dr. David Magana RBC 4.36 106/ul Critically low 4.70-6.[address] [facility] Comment on above: Performed By: #### M ERICK Faith, PHOS #### [facility] [address] [address] [address] Dvaid Magana WBC 11.9 103/ul Critically high 4.0-11.0 [facility] Comment on above: Performed By: #### M ERICK Faith, PHOS #### [facility] [address] [place] [address] Dr. David Magana PROF CHEM 8 (BAS METB)on Anion gap [Moles/Vol] 26.5 mmol/L Normal [facility] Comment on above: Performed By: #### C BC #### [facility] [address] [place] [address] Dr. David Magana Calcium [Mass/Vol] 8.2 mg/dL Critically low 8.5-10.1 [facility] Comment on above: Performed By: #### C BC #### [facility] [address] [place] [address] Dr. David Magana Chloride [Moles/Vol] 89 mmol/L Critically low 98-107 [facility] Comment on above: Performed By: #### C BC #### [facility] [address] [place] [address] Dr. David Magana CO2 [Moles/Vol] 14.5 mmol/L Critically low 21.0-32.0 [facility] Comment on above: Performed By: #### C BC #### [facility] [address] [place] [address] Dr. David Magana Creatinine [Mass/Vol] 2.78 mg/dL Critically high 0.70-1.30 [facility] Comment on above: Performed By: #### C BC #### [facility] [address] [place] [address] Dr. David Magana EGFR-AF WELSH 27 mL/min/1.73m2 Critically low >=60 [facility] Comment on above: Performed By: #### C BC #### [facility] [address] [address] [address] David Magana EGFR-NON AF WELSH 22 mL/min/1.73m2 Critically low >=60 [facility] Comment on above: Performed By: #### C BC #### [facility] [address] [address] [address] David Magana Glucose [Mass/Vol] 442 mg/dL Critically high 74-106 [facility] Comment on above: Performed By: #### C BC #### [facility] [address] [address] [address] David Magana Potassium [Moles/Vol] 6.0 mmol/L Critically high 3.5-5.1 [facility] Comment on above: Performed By: #### C BC #### [facility] [address] [address] [address] David Magana Sodium [Moles/Vol] 124 mmol/L Critically low 136-145 Th [facility] Comment on above: Performed By: #### C BC #### [facility] [address] [address] [address] David Magana Urea nitrogen [Mass/Vol] 73.0 mg/dL Critically high 7.0-18.0 [facility] Comment on above: Performed By: #### C BC #### [facility] [address] [address] [address] David Magana Urea nitrogen/Creatinine [Mass ratio] 26.3 mg/mg Normal [facility] Comment on above: Performed By: #### C BC #### [facility] [address] [address] [address] David Mag[facility] SARS-CoV-2 (COVID-19) RNA SULTANA+probe Ql (Unsp spec) Detected Critically abnormal NOT DETECTED [facility] Comment on above: Result Comment: This test is not yet approved or cleared by the [place] FDA. When there are no FDA-approved or cleared tests available, and other criteria are met, FDA can make tests available under an emergency access mechanism called an Emergency Use Authorization (EUA). The EUA for this test is supported by the [place] of Health and Human Service's (HHS's) declaration [...] By: #### M Marcell, ERICK, PHOS #### [facility] [address] [address] [address] David Magana ECHOCARDIO M/2D COMPLETEon 0 07-01-2022 ECHOCARDIO M/2D COMPLETE Patient: NADIR BETH Exam Date: 07/01/2022 : 1940 Gender:M Ordering : DR CLARIBEL CISNEROS M.D. Admission #: [id number] Family : DR PJ YOUSSEF . Order #: [id number] CLICK HERE TO VIEW EXAM ECHOCARDIOGRAM REPORT [...] M.D. on 07/01/2022 at 16:27 Normal [facility] Covid-19 PCR ([facility])on SARS-CoV-2 (COVID-19) RNA SULTANA+probe Ql (Unsp spec) Not detected Normal NOT DETECTED [facility] Comment on above: [...] for this test is supported by the [employer] of Health and Human Service's declaration that [...] used). Performed By: #### C VDTB #### [facility] [address] [place] [address] Dr. David Magana CREATININE URINEon 2 URINE CREAT 14.70 mg/dL Critically low 20.00-300.00 [facility] Comment on above: Performed By: #### M Marcell, ERICK, PHOS #### [facility] [address] [place] [address] Dr. David Magana GLYCOHEMOGLOBIN A1Con 2021 ADA RECOMMENDATION SEE BELOW Normal [facility] Comment on above: Result Comment: ADA RECOMMENDED LIMIT 4.0 - 6.0 ADA THERAPEUTIC TARGET < 7.0 ACTION SUGGESTED > 7.0 Performed By: #### A 1C #### [facility] [address] [place] [address] Dr. David Magana Glucose [Mass/Vol] 209 mg/dL Normal [facility] Comment on above: Performed By: #### A 1C #### [facility] [address] [place] [address] Dr. David Magana HbA1c (Bld) [Mass fraction] 8.9 % Critically high 4.5-6.2 [facility] Comment on above: Performed By: #### A 1C #### [facility] [address] [place] [address] Dr. David Magana MAGNESIUMon 06-08-2022 Magnesium [Mass/Vol] 2.3 mg/dL Normal 1.8-2.4 [facility] Comment on above: Performed By: #### M G, BMP, PHOS #### [facility] [address] [place] [address] Dr. David Magana PHOSPHORUSon 06-08-2022 Phosphate [Mass/Vol] 3.5 mg/dL Normal 2.6-4.7 [facility] Comment on above: Performed By: #### M Marcell, BMP, PHOS #### [facility] [address] [place] [address] Dr. David Magana PROF CHEM 8 (BAS METB)on Anion gap [Moles/Vol] 10.6 mmol/L Normal [facility] Comment on above: Performed By: #### M G, BMP, PHOS #### [facility] [address] [place] [address] Dr. David Magana Calcium [Mass/Vol] 9.2 mg/dL Normal 8.5-10.1 [facility] Comment on above: Performed By: #### M G, BMP, PHOS #### [facility] [address] [place] [address] Dr. David Magana Chloride [Moles/Vol] 102 mmol/L Normal 98-107 [facility] Comment on above: Performed By: #### M G, BMP, PHOS #### [facility] [address] [place] [address] Dr. David Magana CO2 [Moles/Vol] 30.1 mmol/L Normal 21.0-32.0 [facility] Comment on above: Performed By: #### M G, BMP, PHOS #### [facility] [address] [address] [address] David Magana Creatinine [Mass/Vol] 1.70 mg/dL Critically high 0.70-1.30 [facility] Comment on above: Performed By: #### M G, BMP, PHOS #### [facility] [address] [address] [address] David Magana EGFR-AF WELSH 47 mL/min/1.73m2 Critically low >=60 [facility] Comment on above: Performed By: #### M G, BMP, PHOS #### [facility] [address] [address] [address] David Magana EGFR-NON AF WELSH 39 mL/min/1.73m2 Critically low >=60 [facility] Comment on above: Performed By: #### M G, BMP, PHOS #### [facility] [address] [address] [address] David Magana Glucose [Mass/Vol] 197 mg/dL Critically high 74-106 [facility] Comment on above: Performed By: #### M G, BMP, PHOS #### [facility] [address] [address] [address] David Magana Potassium [Moles/Vol] 4.7 mmol/L Normal 3.5-5.1 [facility] Comment on above: Performed By: #### M G, BMP, PHOS #### [facility] [address] [address] [address] David Magana Sodium [Moles/Vol] 138 mmol/L Normal 136-[address] [facility] Comment on above: Performed By: #### M G, BMP, PHOS #### [facility] [address] [address] [address] David Magana Urea nitrogen [Mass/Vol] 25.0 mg/dL Critically high 7.0-18.0 [facility] Comment on above: Performed By: #### M G, BMP, PHOS #### [facility] [address] [address] [address] David Magana Urea nitrogen/Creatinine [Mass ratio] 14.7 mg/mg Normal [facility] Comment on above: Performed By: #### M G, BMP, PHOS #### [facility] [address] [place] [address] Dr. David Magana PROTEIN RAND URINEon 022 UR PROT <5.0 Normal <=11.9 [facility] Comment on above: Performed By: #### C REAU, PROTU #### [facility] [address] [place] [address] Dr. David Magana BILIRUBIN CONJUGATED (DIRECT )on 04-28-2022 BILI, CONJUGATED 0.1 mg/dL Normal 0.0-0.2 [facility] Comment on above: Performed By: #### P OCGLUC #### [facility] [address] [place] [address] Dr. David Magana CBC AUTO DIFFon 04-28-2022 BASO # 0.1 103/ul Normal 0.0-0.1 [facility] Comment on above: Performed By: #### C VDTBH #### [facility] [address] [place] [address] Dr. David Magana Basophils/100 WBC (Bld) 0.7 % Normal 0.2-2.0 [facility] Comment on above: Performed By: #### C VDTBH #### [facility] [address] [place] [address] Dr. David Magana EO # 0.5 103/ul Normal 0.0-0.7 [facility] Comment on above: Performed By: #### C VDTBH #### [facility] [address] [place] [address] Dr. David Magana Eosinophils/100 WBC (Bld) 6.7 % Normal 0.9-7.0 [facility] Comment on above: Performed By: #### C VDTBH #### [facility] [address] [place] [address] Dr. David Magana Erythrocyte distribution width (RBC) [Ratio] 13.6 % Normal 11.0-15.0 [facility] Comment on above: Performed By: #### C VDTBH #### [facility] [address] [place] [address] Dr. David Magana Hematocrit (Bld) [Volume fraction] 45.9 % Normal 42.0-54.0 [facility] Comment on above: Performed By: #### C VDTBH #### [facility] [address] [place] [address] Dr. David Magana Hemoglobin (Bld) [Mass/Vol] 14.9 g/dL Normal 14.0-18.0 [facility] Comment on above: Performed By: #### C VDTBH #### [facility] [address] [place] [address] Dr. David Magana IG # 0.03 10e3/ul Normal 0.00-0.03 [facility] Comment on above: Performed By: #### C VDTBH #### [facility] [address] [place] [address] Dr. David Magana IG % 0.4 % Normal 0.0-0.5 [facility] Comment on above: Performed By: #### C VDTBH #### [facility] [address] [place] [address] Dr. David Magana LYMPH # 1.0 103/ul Critically low 1.2-3.8 [facility] Comment on above: Performed By: #### C VDTBH #### [facility] [address] [place] [address] Dr. David Magana Lymphocytes/100 WBC (Bld) 13.4 % Critically low 20.5-60.0 [facility] Comment on above: Performed By: #### C VDTBH #### [facility] [address] [place] [address] Dr. David Magana MANUAL DIFF REQ NO Normal [facility] Comment on above: Performed By: #### C VDTBH #### [facility] [address] [place] [address] Dr. David Magana MCH (RBC) [Entitic mass] 33.8 pg Normal 25.9-34.0 [facility] Comment on above: Performed By: #### C VDTBH #### [facility] [address] [address] [address] David Magana MCHC (RBC) [Mass/Vol] 32.5 g/dL Normal 29.9-35.2 [facility] Comment on above: Performed By: #### C VDTBH #### [facility] [address] [place] [address] Dr. David Magana MCV (RBC) [Entitic vol] 104.1 fL Critically high 80.0-94.0 [facility] Comment on above: Performed By: #### C VDTBH #### [facility] [address] [place] [address] Dr. David Magana MONO # 0.8 103/ul Normal 0.3-0.8 [facility] Comment on above: Performed By: #### C VDTBH #### [facility] [address] [place] [address] Dr. David Magana Monocytes/100 WBC (Bld) 10.2 % Normal 1.7-12.0 [facility] Comment on above: Performed By: #### C VDTBH #### [facility] [address] [place] [address] Dr. David Magana NEUT # 5.1 103/ul Normal 1.4-6.5 [facility] Comment on above: Performed By: #### C VDTBH #### [facility] [address] [place] [address] Dr. David Magana Neutrophils/100 WBC (Bld) 68.6 % Normal 43.0-75.0 [facility] Comment on above: Performed By: #### C VDTBH #### [facility] [address] [place] [address] Dr. David Magana Platelet mean volume (Bld) [Entitic vol] 11.3 fL Normal 9.5-13.5 [facility] Comment on above: Performed By: #### C VDTBH #### [facility] [address] [place] [address] Dr. David Magana PLT 185 103/ul Normal 150-450 [facility] Comment on above: Performed By: #### C VDTBH #### [facility] [address] [address] [address] David Magana RBC 4.41 106/ul Critically low 4.70-6.10 [facility] Comment on above: Performed By: #### C VDTBH #### [facility] [address] [address] [address] David Magana WBC 7.5 103/ul Normal 4.0-11.0 [facility] Comment on above: Performed By: #### C VDTBH #### [facility] [address] [address] [address] David Magana FREE T3on 04-28-2022 FREE T3 2.17 pg/mlL Critically low 2.18-3.[address] [facility] Comment on above: Performed By: #### P OCGLUC #### [facility] [address] [place] [address] Dr. David Magana LIPID PROFILEon 04-28-2022 CHOL-HDL RATIO NORM SEE BELOW Normal [facility] Comment on above: Result Comment: 3.3 - 4.4 LOW RISK 4.4 - 7.1 AVERAGE RISK 7.1 - 11.0 MODERATE RISK >11.0 HIGH RISK Performed By: #### P OCGLUC #### [facility] [address] [place] [address] Dr. David Magana Cholesterol [Mass/Vol] 234 mg/dL Critically high <=200 [facility] Comment on above: Performed By: #### P OCGLUC #### [facility] [address] [place] [address] Dr. David Magana Cholesterol in HDL [Mass/Vol] 58 mg/dL Normal 40-60 [facility] Comment on above: Performed By: #### P OCGLUC #### [facility] [address] [place] [address] Dr. David Magana Cholesterol in LDL [Mass/Vol] 129.0 mg/dL Normal [facility] Comment on above: Performed By: #### P OCGLUC #### [facility] [address] [place] [address] Dr. David Magana Cholesterol.total/Cho lesterol in HDL [Mass ratio] 4.0 {ratio} Normal [facility] Comment on above: Performed By: #### P OCGLUC #### [facility] [address] [address] [address] David Magana HDL NORMAL > or = 60 mg/dl - LO W CARDIOVASCULAR RISK <40 mg/dl - HIGH CARDIOVASCULAR RISK Normal [facility] Comment on above: Performed By: #### P OCGLUC #### [facility] [address] [address] [address] David Magana LDL CALC NORMAL SEE BELOW Normal [facility] Comment on above: Result Comment: <100 mg/dl OPTIMAL 100 - 129 mg/dl NEAR OR ABOVE OPTIMAL 130 - 159 mg/dl BORDERLINE HIGH 160 - 189 mg/dl HIGH >190 mg/dl VERY HIGH Performed By: #### P OCGLUC #### [facility] [address] [address] [address] David Magana Triglyceride [Mass/Vol] 235 mg/dL Critically high <=150 [facility] Comment on above: Performed By: #### P OCGLUC #### [facility] [address] [address] [address] David Magana VLDL CALC 47.0 mg/dL Normal [facility] Comment on above: Performed By: #### P OCGLUC #### [facility] [address] [address] [address] David Magana PROF 14(COMP METB)on 022 Albumin [Mass/Vol] 3.2 g/dL Critically low 3.4-5.0 [facility] Comment on above: Performed By: #### P OCGLUC #### [facility] [address] [address] [address] David Magana Albumin/Globulin [Mass ratio] 0.9 {ratio} Normal [facility] Comment on above: Performed By: #### P OCGLUC #### [facility] [address] [address] [address] David Magana ALP [Catalytic activity/Vol] 77 U/L Normal 46-116 [facility] Comment on above: Performed By: #### P OCGLUC #### [facility] [address] [address] [address] David Magana ALT [Catalytic activity/Vol] 24 U/L Normal 16-63 [facility] Comment on above: Performed By: #### P OCGLUC #### [facility] [address] [address] [address] David Magana Anion gap [Moles/Vol] 13.1 mmol/L Normal [facility] Comment on above: Performed By: #### P OCGLUC #### [facility] [address] [address] [address] David Magana AST [Catalytic activity/Vol] 13 U/L Critically low 15-37 [facility] Comment on above: Performed By: #### P OCGLUC #### [facility] [address] [address] [address] David Magana Bilirubin [Mass/Vol] 0.3 mg/dL Normal 0.2-1.0 [facility] Comment on above: Performed By: #### P OCGLUC #### [facility] [address] [address] [address] David Magana Calcium [Mass/Vol] 8.8 mg/dL Normal 8.5-10.[address] [facility] Comment on above: Performed By: #### P OCGLUC #### [facility] [address] [address] [address] David Magana Chloride [Moles/Vol] 106 mmol/L Normal 98-107 [facility] Comment on above: Performed By: #### P OCGLUC #### [facility] [address] [address] [address] David Magana CO2 [Moles/Vol] 27.5 mmol/L Normal 21.0-32.0 [facility] Comment on above: Performed By: #### P OCGLUC #### [facility] [address] [address] [address] David Magana Creatinine [Mass/Vol] 1.62 mg/dL Critically high 0.70-1.30 [facility] Comment on above: Performed By: #### P OCGLUC #### [facility] [address] [address] [address] David Magana EGFR-AF WELSH 50 mL/min/1.73m2 Critically low >=60 [facility] Comment on above: Performed By: #### P OCGLUC #### [facility] [address] [address] [address] David Magana EGFR-NON AF WELSH 41 mL/min/1.73m2 Critically low >=60 [facility] Comment on above: Performed By: #### P OCGLUC #### [facility] [address] [address] [address] David Magana Globulin (S) [Mass/Vol] 3.4 g/dL Normal [facility] Comment on above: Performed By: #### P OCGLUC #### [facility] [address] [address] [address] David Magana Glucose [Mass/Vol] 206 mg/dL Critically high 74-106 [facility] Comment on above: Performed By: #### P OCGLUC #### [facility] [address] [address] [address] David Magana Potassium [Moles/Vol] 4.6 mmol/L Normal 3.5-5.1 [facility] Comment on above: Performed By: #### P OCGLUC #### [facility] [address] [address] [address] David Magana Protein [Mass/Vol] 6.6 g/dL Normal 6.4-8.2 [facility] Comment on above: Performed By: #### P OCGLUC #### [facility] [address] [address] [address] David Magana Sodium [Moles/Vol] 142 mmol/L Normal 136-[address] [facility] Comment on above: Performed By: #### P OCGLUC #### [facility] [address] [address] [address] David Magana Urea nitrogen [Mass/Vol] 26.0 mg/dL Critically high 7.0-18.0 [facility] Comment on above: Performed By: #### P OCGLUC #### [facility] [address] [address] [address] David Magana Urea nitrogen/Creatinine [Mass ratio] 16.0 mg/mg Normal [facility] Comment on above: Performed By: #### P OCGLUC #### [facility] [address] [place] [address] Dr. David Magana T4on 04-28-2022 T4 [Mass/Vol] 7.70 ug/dL Normal 4.50-12.10 [facility] Comment on above: Performed By: #### P OCGLUC #### [facility] [address] [address] [address] David Magana TSHon 04-28-2022 TSH 2.187 uIU/mL Normal 0.358-3.740 [facility] Comment on above: Performed By: #### P OCGLUC #### [facility] [address] [place] [address] Dr. David Magana TSH RANGE SEE BELOW Normal [facility] Comment on above: Result Comment: <0.3 4 UIU/ml HYPERTHYROID 0.34-5.60 UIU/ml EUTHYROID >5.60 UIU/ml HYPOTHYROID Performed By: #### P OCGLUC #### [facility] [address] [place] [address] Dr. David Magana Vital Signs Date Time Vital Sign Value Performing Clinician Facility 12-04-2024 08:44-0500 Diastolic blood pressure 90 mm[Hg] MARQUIS LOUISE [facility] 12-04-2024 08:44-0500 Heart rate 78 /min MARQUIS LOUISE [facility] 12-04-2024 08:44-0500 Systolic blood pressure 160 mm[Hg] MARQUIS LOUISE [facility] 11-30-2024 08:28-0500 Body height 182.9 cm Blaise Chicas DPM Work Phone: [facility] 11-30-2024 08:28-0500 Body mass index (BMI) [Ratio] 39.2 kg/m2 Blaise Chicas DPM Work Phone: [facility] 11-30-2024 08:28-0500 Body weight 131.09 kg Blaise Chicas DPM Work Phone: [facility] 11-30-2024 08:28-0500 Respiratory rate 16 /min Blaise Chicas DPM Work Phone: [facility] 11-02-2024 08:09-0500 Blood Pressure Location MARQUIS NKANSAH-AMANKRA [facility] 11-02-2024 08:09-0500 Diastolic blood pressure 67 mm[Hg] MARQUIS NKANSAH-AMANKRA [facility] 11-02-2024 08:09-0500 Heart rate 65 /min MARQUIS NKANSAH-AMANKRA [facility] 11-02-2024 08:09-0500 Systolic blood pressure 102 mm[Hg] MARQUIS NKANSAH-AMANKRA [facility] 09-14-2024 08:19-0400 Body height 182.9 cm Blaise Brown DPM Work Phone: [facility] 09-14-2024 08:19-0400 Body mass index (BMI) [Ratio] 39.2 kg/m2 Blaise Chicas DPM Work Phone: [facility] 09-14-2024 08:19-0400 Body weight 131.09 kg Blaise Chicas DPM Work Phone: [facility] 09-14-2024 08:19-0400 Diastolic blood pressure 79 mm[Hg] Blaise Chicas DPM Work Phone: [facility] 09-14-2024 08:19-0400 Heart rate 81 /min Blaise Chicas DPM Work Phone: [facility] 09-14-2024 08:19-0400 Systolic blood pressure 128 mm[Hg] Blaise Chicas DPM Work Phone: [facility] 08-08-2024 10:25-0400 Blood Pressure Location MARQUIS NKANSAH-AMANKRA [facility] 08-08-2024 10:25-0400 Diastolic blood pressure 82 mm[Hg] MARQUIS NKANSAH-AMANKRA [facility] 08-08-2024 10:25-0400 Systolic blood pressure 140 mm[Hg] MARQUIS NKANSAH-AMANKRA [facility] 08-03-2024 08:45-0400 Body height 182.9 cm Blaise Chicas DPM Work Phone: [facility] 08-03-2024 08:45-0400 Body mass index (BMI) [Ratio] 39.2 kg/m2 Blaise Chicas DPM Work Phone: [facility] 08-03-2024 08:45-0400 Body weight 131.09 kg Blaise Chicas DPM Work Phone: [facility] 08-03-2024 08:45-0400 Diastolic blood pressure 82 mm[Hg] Blaise Chicas DPM Work Phone: [facility] 08-03-2024 08:45-0400 Heart rate 75 /min Blaise Chicas DPM Work Phone: [facility] 08-03-2024 08:45-0400 Respiratory rate 18 /min Blaise Chicas DPM Work Phone: [facility] 08-03-2024 08:45-0400 Systolic blood pressure 130 mm[Hg] Blaise Chicas DPM Work Phone: [facility] 08-01-2024 11:24-0400 Body height 182.9 cm Barrie Montoya MD Work Phone: [facility] 08-01-2024 11:24-0400 Body mass index (BMI) [Ratio] 39.2 kg/m2 Barrie Montoya MD Work Phone: [facility] 08-01-2024 11:24-0400 Body weight 131.09 kg Barrie Montoya MD Work Phone: [facility] 08-01-2024 11:24-0400 Diastolic blood pressure 93 mm[Hg] Barrie Montoya MD Work Phone: [facility] 08-01-2024 11:24-0400 Heart rate 73 /min Barrie Montoya MD Work Phone: [facility] 08-01-2024 11:24-0400 Systolic blood pressure 182 mm[Hg] Barrie Montoya MD Work Phone: [facility] 07-20-2024 08:27-0400 Body height 182.9 cm Blaise Chicas DPM Work Phone: [facility] 07-20-2024 08:27-0400 Body mass index (BMI) [Ratio] 26.04 kg/m2 Blaise Chicas DPM Work Phone: [facility] 07-20-2024 08:27-0400 Body weight 87.09 kg Blaise Chicas DPM Work Phone: [facility] 07-20-2024 08:27-0400 Diastolic blood pressure 81 mm[Hg] Blaise Chicas DPM Work Phone: [facility] 07-20-2024 08:27-0400 Heart rate 75 /min Blaise Chicas DPM Work Phone: [facility] 07-20-2024 08:27-0400 Respiratory rate 18 /min Blaise Chicas DPM Work Phone: [facility] 07-20-2024 08:27-0400 Systolic blood pressure 130 mm[Hg] Blaise Aviva DPM Work Phone: [facility] 07-06-2024 08:27-0400 Body height 182.9 cm Blaise Aviva DPM Work Phone: [facility] 07-06-2024 08:27-0400 Body mass index (BMI) [Ratio] 26.04 kg/m2 Blaise Chicas DPM Work Phone: [facility] 07-06-2024 08:27-0400 Body weight 87.09 kg Blaise Chicas DPM Work Phone: [facility] 07-06-2024 08:27-0400 Diastolic blood pressure 81 mm[Hg] Blaise Aviva DPM Work Phone: [facility] 07-06-2024 08:27-0400 Heart rate 77 /min Blaise Chicas DPM Work Phone: [facility] 07-06-2024 08:27-0400 Systolic blood pressure 128 mm[Hg] Blaise Chicas DPM Work Phone: [facility] 10-14-2023 14:33-0500 Diastolic blood pressure 70 mm[Hg] Nereyda Patricia [facility] 10-14-2023 14:33-0500 Mean blood pressure 93 mm[Hg] Nereyda Patricia [facility] 10-14-2023 14:33-0500 Systolic blood pressure 138 mm[Hg] Nereyda Patricia [facility] 10-14-2023 14:18-0500 Blood Pressure Location Nereyda Patricia [facility] 10-14-2023 14:18-0500 Body temperature 97.88 [degF] Nereyda Patricia [facility] 10-14-2023 14:18-0500 Diastolic blood pressure 73 mm[Hg] Nereyda Patricia [facility] 10-14-2023 14:18-0500 Heart rate 91 /min Nereyda Patricia [facility] 10-14-2023 14:18-0500 Systolic blood pressure 143 mm[Hg] Nereyda Patricia [facility] 10-01-2023 12:13-0500 Diastolic blood pressure 66 mm[Hg] Nereyda Patricia [facility] 10-01-2023 12:13-0500 Mean blood pressure 104 mm[Hg] Nereyda Patricia [facility] 10-01-2023 12:13-0500 Systolic blood pressure 179 mm[Hg] Nereyda Patricia [facility] 10-01-2023 12:10-0500 Blood Pressure Location Nereyda Patricia [facility] 10-01-2023 12:10-0500 Body temperature 98.42 [degF] Nereyda Patricia [facility] 10-01-2023 12:10-0500 Diastolic blood pressure 77 mm[Hg] Nereyda Patricia [facility] 10-01-2023 12:10-0500 Heart rate 81 /min Nereyda Patricia [facility] 10-01-2023 12:10-0500 Respiratory rate 14 /min Nereyda Ptaricia [facility] 10-01-2023 12:10-0500 Systolic blood pressure 168 mm[Hg] Nereyda Patricia [facility] 06-10-2023 10:43-0400 Diastolic blood pressure 64 mm[Hg] Nereyda Patricia [facility] 06-10-2023 10:43-0400 Heart rate 76 /min Nereyda Patricia [facility] 06-10-2023 10:43-0400 Respiratory rate 16 /min Nereyda Patricia [facility] 06-10-2023 10:43-0400 SaO2% (BldA) [Mass fraction] 95 % Nereyda Patricia [facility] 06-10-2023 10:43-0400 Systolic blood pressure 121 mm[Hg] Nereyda Patricia [facility] 04-13-2023 14:19-0400 Diastolic blood pressure 70 mm[Hg] Nereyda Patricia [facility] 04-13-2023 14:19-0400 Mean blood pressure 95 mm[Hg] Nereyda Patricia [facility] 04-13-2023 14:19-0400 Systolic blood pressure 146 mm[Hg] Nereyda Patricia [facility] 04-13-2023 14:15-0400 Blood Pressure Location Nereyda Patricia [facility] 04-13-2023 14:15-0400 Body temperature 97.7 [degF] Nereyda Patricia [facility] 04-13-2023 14:15-0400 Diastolic blood pressure 87 mm[Hg] Nereyda Joyametz [facility] 04-13-2023 14:15-0400 Heart rate 70 /min Nereydabruce JoyaPatricia [facility] 04-13-2023 14:15-0400 Systolic blood pressure 150 mm[Hg] Nereyda Joyametz [facility] 06-09-2022 10:02-0400 Body temperature 96.98 [degF] Nereyda Joyametz [facility] 06-09-2022 10:02-0400 Diastolic blood pressure 75 mm[Hg] Nereyda Joyametz [facility] 06-09-2022 10:02-0400 Heart rate 72 /min Nereydabruce JoyaPatricia [facility] 06-09-2022 10:02-0400 SaO2% (BldA) [Mass fraction] 97 % Nereyda Joyametz [facility] 06-09-2022 10:02-0400 Systolic blood pressure 139 mm[Hg] Nereydabruce JoyaPatricia [facility] 05-11-2022 11:30-0400 Diastolic blood pressure 102 mm[Hg] Bender SALAM [facility] 05-11-2022 11:30-0400 Heart rate 86 /min Bender SALAM [facility] 05-11-2022 11:30-0400 Respiratory rate 15 /min Bender SALAM [facility] 05-11-2022 11:30-0400 SaO2% (BldA) [Mass fraction] 95 % Bender SALAM [facility] 05-11-2022 11:30-0400 Systolic blood pressure 172 mm[Hg] Bender SALAM [facility] 05-11-2022 11:15-0400 Diastolic blood pressure 88 mm[Hg] Bender SALAM [facility] 05-11-2022 11:15-0400 Heart rate 86 /min Bender SALAM [facility] 05-11-2022 11:15-0400 Respiratory rate 18 /min Bender SALAM [facility] 05-11-2022 11:15-0400 SaO2% (BldA) [Mass fraction] 97 % Bender SALAM [facility] 05-11-2022 11:15-0400 Systolic blood pressure 170 mm[Hg] Bender SALAM [facility] 05-11-2022 11:10-0400 Diastolic blood pressure 108 mm[Hg] Bender SALAM [facility] 05-11-2022 11:10-0400 Heart rate 85 /min Bender SALAM [facility] 05-11-2022 11:10-0400 Respiratory rate 14 /min Bender SALAM [facility] 05-11-2022 11:10-0400 SaO2% (BldA) [Mass fraction] 97 % Bender SALAM [facility] 05-11-2022 11:10-0400 Systolic blood pressure 157 mm[Hg] Bender SALAM [facility] 05-11-2022 11:02-0400 Body temperature 97.34 [degF] Bender SALAM [facility] 05-11-2022 10:27-0400 Blood Pressure Location Bender SALAM [facility] 05-11-2022 10:23-0400 Blood Pressure Location Bender SALAM [facility] 05-11-2022 10:23-0400 Body temperature 98.24 [degF] Bender SALAM [facility] 03-31-2022 09:53-0400 Blood Pressure Location Nereyda Joyametz [facility] 03-31-2022 09:53-0400 Body temperature 97.7 [degF] Nereyda Gomez [facility] 03-31-2022 09:53-0400 Diastolic blood pressure 72 mm[Hg] Nereyda Joyametz [facility] 03-31-2022 09:53-0400 Heart rate 73 /min Nereyda Gomez [facility] 03-31-2022 09:53-0400 SaO2% (BldA) [Mass fraction] 96 % Nereydabruce JoyaPatricia [facility] 03-31-2022 09:53-0400 Systolic blood pressure 129 mm[Hg] Nereydabruce JoyaPatricia [facility] Encounters Encounter Date Encounter Type Care Provider Facility Start: 06-11-2025 ambulatory LU Sweet SHARA Rick ty:NAV Dominguez Start: 01-03-2025 End: 01-03-2025 ambulatory [place] [facility] Start: 12-14-2024 End: 12-14-2024 ambulatory CLARIBEL CISNEROS [facility] Start: 12-04-2024 End: 12-04-2024 ambulatory MARQUIS ROANEELAEMMYMadeleineDAYSI Facility:[facility] Start: 12-04-2024 End: 12-04-2024 Patient encounter procedure MARQUIS NEELY-DAYSI [facility] Start: 11-30-2024 End: 11-30-2024 Bamboo flowsheet Blaise [...] underlying condition with diabetic polyneuropathy, unspecified whether group home insulin use ([facility]); Pain due to onychomycosis of toenails of both feet Start: 11-30-2024 End: 11-30-2024 ambulatory BLAISE CHICAS Not Available Start: 11-06-2024 End: 11-06-2024 ambulatory Mejia SINHG Facility:[facility] Start: 11-06-2024 End: 11-06-2024 Patient encounter procedure Mejia SINGH [facility] Start: 11-02-2024 End: 11-02-2024 ambulatory MARQUIS NKANSAH-AMANKRA Facility:[facility] Start: 11-02-2024 End: 11-02-2024 Patient encounter procedure MARQUIS NKANSAH-AMANKRA [facility] Start: 10-30-2024 End: 10-30-2024 ambulatory Mejia SINGH Facility::[id number] Start: 10-25-2024 End: 10-25-2024 ambulatory MARQUIS NKANSAH-AMANKRA Facility:[facility] Start: 10-23-2024 End: 10-23-2024 ambulatory MARQUIS NKANSAH-AMANKRA [facility] Start: 10-23-2024 End: 10-23-2024 Patient encounter procedure MARQUIS JANINAANSAH-AMANKRA [facility] Start: 10-02-2024 End: 10-02-2024 ambulatory MARQUIS NKANSAH-AMANKRA Facility:[facility] Start: 09-25-2024 End: 09-25-2024 ambulatory MARQUIS NKANSAH-AMANKRA [facility] Start: 09-25-2024 End: 09-25-2024 Patient encounter procedure MARQUIS JANINAANSAH-AMANKRA [facility] Start: 09-14-2024 End: 09-14-2024 Bamboo flowsheet Blaise [...] underlying condition with diabetic polyneuropathy, unspecified whether erector operator insulin use ([facility]); Pain due to onychomycosis of [...] RODNEY JOY Not Available Start: 08-22-2024 ambulatory [facility] Facility[facility] Start: 08-17-2024 [facility] Start: 08-14-2024 End: 08-17-2024 Telephone encounter Barrie Montoya MD Work Phone: [facility] 111 Start: 08-08-2024 End: 08-08-2024 ambulatory [facility] Facility:[facility] Start: 08-08-2024 End: 08-08-2024 [facility] Start: 08-03-2024 End: 08-03-2024 Bamboo flowsheet Blaise Chicas DPM Work Phone: [facility] Start: 08-03-2024 End: 08-03-2024 Bamboo flowsheet Blaise Chicas DPM Work Phone: [facility] Start: 08-03-2024 End: 08-03-2024 Patient encounter procedure Blaise Chicas DPM Work Phone: [facility] Comment on above: Verruca plantaris (P rimary Dx); Foot pain, right; Xerosis cutis Start: 08-03-2024 End: 08-03-2024 ambulatory BLAISE CHICAS Not Available Start: 08-01-2024 End: 08-01-2024 Bamboo flowsheet Barrie Montoya MD Work Phone: [facility] Start: 08-01-2024 End: 08-01-2024 Bamboo flowsheet Barrie Montoya MD Work Phone: [facility] Start: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 and the office and he had significant evidence of volume overload by exam and echocardiogram. I intensified his diuretic regimen. He ended up getting admitted to the [facility] with acute heart failure exacerbation [...] (more content not included)... [facility]04-19-2024 NoteUT Cardiology - [facility] Subjective Nadir Beth is [...] extremity edema. He was admitted to the [facility] in August 2022 due to hyponatremia, hyperkalemia and acute kidney injury, leukocytosis secondary to COVID-19 causing dehydration. I saw him on 05/24/2023 and the office and he had significant evidence of volume overload by exam and echocardiogram. I intensified his diuretic regimen. He ended up getting admitted to the [facility] with acute heart failure exacerbation [...] General: N (more content not included)...[facility] 10-14-2023 Hospital Discharge instructions [...] as fried or sweet foods. These include belarusian fries, hamburgers, cookies, candies, and soda. Drink enough fluid to keep your urine pale yellow. General instructions Exercise regularly or as told by your health care provider. Try to do 150 minutes of moderate exercise each week. Use the bathroom when you have the urge to go. Do not hold it in. Take ndzv-vlr-zofrstw and prescription medicines only as told by [...] to keep your urine pale yellow. Take ijsz-lbz-sitptcd and prescription medicines only as told by your health care provider. This includes any fiber supplements. This information is not intended to replace advice given to you by your health care provider. Make sure you discuss any questions you have with your health care provider. Document Revised: 09/18/2020 Document Reviewed: 09/18/2020 [employer] Patient Education 2022 [employer]. Follow Up Care 10/01/2023 12:57:46 With:Nereyda Gomez CNP Address: When:1 month [facility] 11-17-2023 Hospital Discharge [...] Bulgur wheat. Millet. Quinoa. Bran muffins. Popcorn. [place] wafer crackers. Meats and other proteins [place] beans, kidney beans, and mendez beans. Soybeans. [...] Cream cheese. Sour cream. Fats and oils [place]. Beverages Soft drinks. Other foods Cakes and [...] provider. Document Revised: 03/06/2021 Document Reviewed: 03/06/2021 [employer] Patient Education 2022 [employer]. Follow Up Care 09/20/2023 08:43:45 With:Nereyda Gomez CNP Address:Unknown When: Unknown [facility] 11-17-2023 Evaluation + Plan note Future Scheduled Tests Laboratory* CBC w/ Auto Diff 10/01/23 * Comprehensive Metabolic Panel 10/01/23 * Thyroid Stimulating Hormone 10/01/23 [facility] 07-27-2023 Hospital Discharge instructions Patient Education 06/10/2023 [...] hard liquor (44 mL). General instructions Take ugfg-bxh-msplsbc and prescription medicines only as told by [...] provider. Document Revised: 02/19/2021 Document Reviewed: 02/19/2021 [employer] Patient Education 2022 [employer] Follow Up Care 04/13/2023 14:39:27 With:Nereyda Gomez CNP Address: When:3 months [facility] 05-30-2023 Hospital Discharge [...] including vitamins, herbs, eye drops, creams, and gozb-lmn-gpxbpkq medicines. Any problems you or family members [...] provider tells you to take them. Taking didb-bfc-ltpswdt medicines, vitamins, herbs, and supplements. General instructions [...] provider. Document Revised: 10/26/2022 Document Reviewed: 06/24/2022 [employer] Patient Education 2022 [employer]. Follow Up Care 04/09/2023 11:27:16 With:Nereyda Gomez CNP Address: When:1 month [facility] 09-03-2022 NoteEXAM: US [...] Electronically authenticated by: PREETI ROBERTS Date: 2022-07-18 09:05[facility]07-26-2022 Hospital Discharge instructions Patient Education 06/09/2022 [...] per serving. Talk with a diet and research nutritionist (dietitian) if you have questions about specific [...] Bulgur wheat. Millet. Quinoa. Bran muffins. Popcorn. [place] wafer crackers. Meats and other proteins [place], kidney, and mendez beans. Soybeans. Split peas. [...] Cream cheese. Sour cream. Fats and oils [place]. Beverages Soft drinks. Other foods Cakes and [...] 11/01/2006 Document Revised: 09/05/2018 Document Reviewed: 09/05/2018 [employer] Patient Education 2020 [employer]. 06/09/2022 10:13:34 Hemorrhoids Hemorrhoids Hemorrhoids are swollen [...] 3 times a day. General instructions Take fjcc-wod-klmizwi and prescription medicines only as told by [...] 10/29/2001 Document Revised: 03/29/2020 Document Reviewed: 03/23/2019 [employer] Patient Education 2020 [employer]. 06/09/2022 10:13:31 Diverticulosis Diverticulosis Diverticulosis is a [...] overweight. Not getting enough exercise. Smoking. Taking umyr-ico-wdkwsyj pain medicines, like aspirin and ibuprofen. Having [...] health care provider or your diet and research nutritionist (dietitian). ?Take a fiber supplement or probiotic, if your health care provider approves. Take byqi-smd-vjakhax and prescription medicines only as told by [...] 07/29/2005 Document Revised: 10/14/2018 Document Reviewed: 09/20/2017 [employer] Patient Education 2020 [employer]. 06/09/2022 10:13:30 Colon Polyps Colon Polyps Polyps [...] 07/28/2005 Document Revised: 02/16/2019 Document Reviewed: 02/16/2019 [employer] Patient Education 2020 [employer]. Follow Up Care 05/13/2022 14:18:17 With:Nereyda Gomez CNP Address: When:1 year only if needed [facility] [id number] Evaluation + Plan noteExtracted from: Title:Anesthesia post [...] heart and lungs, allergic reactions, and .. [facility]06-27-2022 Hospital Discharge instructions Patient Education 05/11/2022 [...] 07/28/2005 Document Revised: 02/16/2019 Document Reviewed: 02/16/2019 [employer] Patient Education 2020 [employer]. 05/11/2022 11:13:39 Diverticulosis MAGR (CUSTOM) Diverticulosis Many [...] unsweetened, w/added ascorbic acid 1 cup 0.5 [place] 1 cup 0.7 Vegetables Cooked Green beans 1 cup 4.0 Carrots 1/2 cup sliced 2.3 Peas 1 cup 8.8 Potato (baked, with skin) 1 medium potato 3.8 Raw [place] (with peel) 1 cucumber 1.5 Lettuce 1 [...] Reference. Available at http://www.nal.usda.gov/fnic/foodcomp/search/. Information adapted from: [facility] Patient Information 2009 [employer] 2012 http://www.PagoPago/contents/gqwdeuizhqeu-xklsbag-qqiuyx-the-basics Follow Up Care 03/31/2022 10:27:32 With:Napoleon NOVA Address: [address] [place], [place] [address]dict [address]. [address] [place] [address] Business (1) When: Unknown Comments:office will call for follow up [facility]05-17-2022 Hospital Discharge instructions Patient Education 03/31/2022 [...] including vitamins, herbs, eye drops, creams, and etwj-szg-kngkfub medicines. Any problems you or family members [...] 10/29/2001 Document Revised: 08/24/2018 Document Reviewed: 01/12/2017 [employer] Patient Education 2020 [employer]. Follow Up Care 03/23/2022 12:11:50 With:Nereyda Gomez CNP Address: When:1 month [facility] Evaluation + Plan note Future Appointments Appointment Date:05/25/2022 08:45:00 AM Scheduled Provider: Location:[facility] Appointment Type:Surgery FT [facility] Evaluation + Plan note Future Appointments Appointment Date:06/10/2023 10:40:00 AM Scheduled Provider:Nereyda Gomez CNP [facility] Type:[facility] Follow Up Future Scheduled Tests Laboratory* Fecal WBC Lactoferrin 04/13/23 * Giardia lamblia, Direct Detection EIA 04/13/23 * O & P Exam, Routine 04/13/23 * Clostridium Difficile PCR 04/13/23 * Enteric Panel by PCR 04/13/23 [facility] Evaluation + Plan note Future Appointments Appointment Date:06/10/2023 10:40:00 AM Scheduled Provider:Nereyda Gomez CNP Location:[facility] Appointment Type:[facility] Follow Up Diagnostic Tests Pending * O & P Exam, Routine 04/15/23 * Giardia lamblia, Direct Detection EIA [facility]15/23 [facility] Future Appointments Appointment Date:09/13/2023 10:40:00 AM Scheduled Provider:Nereyda Gomez CNP Location[facility] Appointment Type:BAD Follow Up [facility] Evaluation + Plan note Future Appointments Appointment Date:10/14/2023 02:20:00 PM Scheduled Provider:Nereyda Gomez CNP [facility] Appointment Type:[facility] Follow Up Future Scheduled Tests Laboratory* CBC w/ Auto Diff 10/01/23 * Comprehensive Metabolic Panel 10/01/23 * Thyroid Stimulating Hormone 10/01/23 [facility] Evaluation + Plan note Future Appointments Appointment Date:12/09/2023 02:00:00 PM Scheduled Provider:Nereyda Gomez CNP Location[facility] Appointment Type:[facility] Follow Up Future Scheduled Tests Laboratory* CBC w/ Auto Diff 10/01/23 * Comprehensive Metabolic Panel 10/01/23 * Thyroid Stimulating Hormone 10/01/23 [facility] Evaluation + Plan note Future Appointments Appointment Date:10/26/2024 09:30:00 AM Scheduled Provider: Location:[facility] Appointment Type:URO Nurse Visit Appointment Date:12/04/2024 08:40:00 AM Scheduled Provider:MARQUIS LOUISE MD Location:[facility] Appointment Type:URO Office Visit Future Scheduled Tests Laboratory* CBC w/ Auto Diff 10/01/23 * Comprehensive Metabolic Panel 10/01/23 * Thyroid Stimulating Hormone 10/01/23 [facility] Evaluation + Plan note Future Appointments Appointment Date:11/06/2024 09:00:00 AM Scheduled Provider: Location:[facility] Appointment Type:URO Nurse Visit Appointment Date:12/04/2024 08:40:00 AM Scheduled Provider:MARQUIS LOUISE MD Location:[facility] Appointment Type:URO Office Visit Future Scheduled Tests Laboratory* CBC w/ Auto Diff 10/01/23 * Comprehensive Metabolic Panel 10/01/23 * Thyroid Stimulating Hormone 10/01/23 [facility] Evaluation + Plan note Future Appointments Appointment Date:12/04/2024 08:40:00 AM Scheduled Provider:MARQUIS LOUISE MD Location:[facility] Appointment Type:URO Office Visit Future Scheduled Tests Laboratory* CBC w/ Auto Diff 10/01/23 * Comprehensive Metabolic Panel 10/01/23 * Thyroid Stimulating Hormone 10/01/23 [facility] evaluation + Plan note Future Appointments Appointment Date:06/11/2025 11:40:00 AM Scheduled Provider:LU OLMEDO PA-C Location:[facility] Appointment Type:URO Office Visit Future Scheduled Tests Laboratory* CBC w/ Auto Diff 10/01/23 * Comprehensive Metabolic Panel 10/01/23 * Thyroid Stimulating Hormone 10/01/23 [facility] Evaluation note* Diagnosis Melanocytic nevus of trunk- Primary Benign neoplasm of skin of trunk, except scrotum Actinic keratosis Lentigines Seborrheic keratosis documented in this encounter [facility] HealthcareEvaluation note* Diagnosis Benign essential tremor- [...] underlying condition with diabetic polyneuropathy, unspecified whether erector operator insulin use (CMS/HCC) Pain due to onychomycosis of toenails of both feet documented in this encounter [facility] HealthcareEvaluation note* Diagnosis Xerosis cutis- Primary Other specified disease of sebaceous glands Verruca plantaris Plantar wart Foot pain, right Pain in soft tissues of limb Diabetes mellitus due to underlying condition with diabetic polyneuropathy, unspecified whether group home insulin use (CMS/HCC) Onychomycosis Dermatophytosis of nail Toe pain, bilateral documented in this encounter [facility] HealthcareEvaluation note* Diagnosis Verruca plantaris- Primary Plantar wart Foot pain, right Pain in soft tissues of limb Xerosis cutis Other specified disease of sebaceous glands documented in this encounter [facility] HealthcareEvaluation note* Diagnosis Neurogenic pain- Primary Benign essential tremor Essential and other specified forms of tremor documented in this encounter [facility] HealthcareEvaluation note* Diagnosis Benign essential tremor- [...] underlying condition with diabetic polyneuropathy, unspecified whether group home insulin use (CMS/HCC) Pain due to onychomycosis of toenails of both feet documented in this encounter [facility] HealthcareHospital course Narrative No data available for this section [facility] Hospital Discharge instructions No data available for this section [facility] No data available for this section [facility] Summary Purpose Family History No Family [...] and content) DATE CREATED AUTHOR 02/09/2019 [facility] DATE CREATED AUTHOR AUTHOR'S ORGANIZ ATION 03/28/2023 [facility] pital DATE CREATED AUTHOR AUTHOR'S ORGANIZ ATION 12/03/2024 [facility] EPIC DATE CREATED AUTHOR AUTHOR'S ORGANIZ ATION 12/06/2024 [facility] DATE CREATED AUTHOR AUTHOR'S ORGANIZ ATION 01/10/2025 [facility] Care Team (unrecognized sect ion and content) Trustee Of Estate Relationship Specialty Start Date End Date Pj Youssef MD [address] [place] [address] PCP - General Family Medicine 12/02/23 Trustee Of Estate Relationship Specialty Start Date End Date Pj Youssef MD [address] [place] [address] PCP - General Family Medicine 12/02/23 Trustee Of Estate Relationship Specialty Start Date End Date Pj Youssef MD [address] [place] [address] PCP - General Family Medicine 12/02/23 Trustee Of Estate Relationship Specialty Start Date End Date Pj Youssef MD [address] [place] [facility] [address] PCP - General Family Medicine 12/02/23 Trustee Of Estate Relationship Specialty Start Date End Date Pj Youssef MD [address] [place] [facility] [address] PCP - General Family Medicine 12/02/23 Trustee Of Estate Relationship Specialty Start Date End Date Pj Youssef MD [address] [place] [facility] [place] [address] PCP - General Family Medicine 12/02/23 Trustee Of Estate Relationship Specialty Start Date End Date Pj Youssef MD [address] [place] [facility] [place] [address] PCP - General Family Medicine 12/02/23 Trustee Of Estate Relationship Specialty Start Date End Date Pj Youssef MD [address] [place] [facility] [address] PCP - General Family Medicine 12/02/23 Trustee Of Estate Relationship Specialty Start Date End Date Pj Youssef MD [address] [place] [facility] [address] PCP - General Family Medicine 12/02/23 Trustee Of Estate Relationship Specialty Start Date End Date Pj Youssef MD [address] [place] [facility] [place] [address] PCP - General Family Medicine 1/18/24 Reason [...] BE BASED ON THE PRIMARY CLINICAL RECORDS. [employer] provides no warranty or guarantee of the accuracy or completeness of information in this document.
--- NOTE | 2025-02-14 09:57 | ECG_ITS ---
[facility] Test Date: 2025-02-14 Pat Name: NADIR HEREDIA Department: Room: - Gender: Male Nipple Maker: : 1940 Requested By: [id number] Order Number: [id number] Reading MD: CLAIRBEL PUGA M.D. Measurements Intervals [place] Rate: 75 P: -[id number] KS: -[id number] QRS: -60 QRSD: 100 T: 68 QT: 406 QTc: 435 Interpretive Statements 1210 Atrial fibrillation 3433 Septal myocardial infarction, probably old 7200 Abnormal left axis deviation 9150 abnormal ECG Compared to ECG 09/08/2024 12:03:04 Left-axis deviation now present Aberrant conduction of supraventricular beat(s) no longer present Electronically Signed On 02-14-2025 17:28:44 EDT by CLARIBEL PUGA M.D.
--- NOTE | 2025-02-14 10:03 | PC.NURSE ---
Per patient and they were sent to ER by Dr. Sung after having MRI of brain this morning.
[2025-02-14 10:11] LABS: Basophils Percent Auto 0.4 % (0.2-2.0); Eosinophils Absolute Auto 0.2 10^3/uL (0.0-0.7); Hematocrit 34.6 % (42.0-54.0); Hemoglobin 11.1 g/dL (14.0-18.0); Immature Granulocytes Abs Auto 0.04 10^3/uL (0.00-0.03); Immature Granulocytes Pct Auto 0.5 % (0.0-0.5); Lymphocytes Absolute Auto 0.7 10^3/uL (1.2-3.8); Lymphocytes Percent Auto 8.4 % (20.5-60.0); Mean Corpuscular HGB Conc 32.1 g/dL (29.9-35.2); Mean Corpuscular Hemoglobin 28.9 pg (25.9-34.0); Mean Corpuscular Volume 90.1 fL (80.0-94.0); Mean Platelet Volume 11.6 fL (9.5-13.5); Monocytes Absolute Auto 0.6 10^3/uL (0.3-0.8); Monocytes Percent Auto 7.6 % (1.7-12.0); Neutrophils Absolute Auto 6.6 10^3/uL (1.4-6.5); Neutrophils Percent Auto 81.1 % (43.0-75.0); Platelet Count 229 10^3/uL (150-450); Red Blood Count 3.84 10^6/uL (4.70-6.10); Red Cell Distribution Width 16.6 % (11.0-15.0); White Blood Count 8.1 10^3/uL (4.0-11.0)
[2025-02-14 10:25] LABS: INR 1.01; Prothrombin Time 10.7 sec (9.0-11.6)
[2025-02-14 10:27] LABS: Alanine Aminotransferase 11 U/L (16-63); Albumin Level 3.4 g/dL (3.4-5.0); Alkaline Phosphatase 92 U/L (46-116); Anion Gap 14.3; Aspartate Amino Transferase 14 U/L (15-37); BUN Creatinine Ratio 17.5; Bilirubin Total 0.4 mg/dL (0.2-1.0); Chloride 101 mmol/L (98-107); Estimated GFR (African America 44 (>=60 mL/min/1.73m^2); Estimated GFR (Non-African Ame 37 (>=60 mL/min/1.73m^2); Globulin 3.5 g/dL; Glucose 256 mg/dL (74-106); Potassium 4.3 mmol/L (3.5-5.1); Sodium 139 mmol/L (136-145); Total Protein 6.9 g/dL (6.4-8.2)
--- NOTE | 2025-02-14 11:00 | PC.NURSE ---
Pati pharmacist notified regarding patient medication list, she is going to review list.
[2025-02-14 11:10] LABS: Bilirubin Urine NEGATIVE (NEGATIVE); Blood Urine NEGATIVE (NEGATIVE); Clarity Urine CLEAR (CLEAR); Color Urine LT. YELLOW (YELLOW); Glucose Urine UA >=1000 mg/dL (NEGATIVE); Ketones Urine NEGATIVE (NEGATIVE); Leukocyte Esterase Urine NEGATIVE (NEGATIVE); Nitrite Urine NEGATIVE (NEGATIVE); Protein Urine NEGATIVE (NEG/TRACE); Urobilinogen Urine 0.2 EU/dL (0.2-1.0)
[2025-02-14 11:12] LABS: Urine Microscopic Indicated NO
--- NOTE | 2025-02-14 11:21 | PC.NURSE ---
Dr. Astudillo speaking with neurologist via telephone at this time.
--- NOTE | 2025-02-14 11:25 | PC.NURSE ---
Radiology contacted to push MRI through to [facility] at request of neurologist.
--- NOTE | 2025-02-14 12:07 | ED_ITS ---
HPI HPI - General Adult General Chief complaint: Recheck/Abnormal Lab/Rx Stated complaint: ABNORMAL LAB RECHECK Time Seen by Provider: 02/14/25 09:48 Source: patient and family Mode of arrival: walk-in Limitations: no limitations History of Present Illness HPI narrative: The patient has been evaluated outpatient by his primary care doctor with an MRI of the brain, was sent to the ER to be evaluated further after the results of the MRI showed some small vessel ischemic changes, the patient according to his as well as himself he has been having some nightmares and confusion for the last 1 week almost. The patient according to the has been having some hallucinations where he sees things that are not in the room, he also has been waking up with multiple nightmares and bad dreams according to him The patient denies any specific weakness or any other symptoms Related Data Home Medications ?Medication ?Instructions ?Recorded ?Confirmed Vitamin B-Complex 1 tab PO .NOON 05/31/23 02/14/25 acyclovir 400 mg tablet 400 mg PO Q8H 05/31/23 10/29/24 apixaban 2.5 mg tablet 2.5 mg PO BID 05/31/23 10/29/24 aspirin 81 mg tablet,delayed 81 mg PO DAILY 05/31/23 02/14/25 release (Adult Low Dose Aspirin) dicyclomine 10 mg capsule 10 mg PO QID PRN abdominal pain 05/31/23 02/14/25 empagliflozin 25 mg tablet 25 mg PO DAILY 05/31/23 10/29/24 (Jardiance) ezetimibe 10 mg tablet 10 mg PO DAILY 05/31/23 02/14/25 glimepiride 4 mg tablet 8 mg PO DAILY 05/31/23 02/14/25 labetalol 300 mg tablet 300 mg PO TID 05/31/23 02/14/25 magnesium See Rx Instructions PO BID 05/31/23 02/14/25 metoclopramide HCl 5 mg tablet 5 mg PO BEDTIME 05/31/23 10/29/24 tamsulosin 0.4 mg capsule 0.4 mg PO Q24H 05/31/23 02/14/25 alprazolam 0.25 mg tablet 0.25 mg PO BID PRN anxiety 08/16/24 02/14/25 dextromethorphan-guaifenesin 30 1 tab PO Q12H 08/16/24 10/29/24 mg-600 mg tablet extended [id number] hr duloxetine 20 mg capsule,delayed 20 mg PO .QD 08/16/24 10/29/24 release escitalopram oxalate 5 mg tablet 5 mg PO .QD 08/16/24 10/29/24 pioglitazone 45 mg tablet (Actos) 45 mg PO DAILY 08/16/24 02/14/25 potassium chloride 20 mEq 40 meq PO .QD 08/16/24 10/29/24 tablet,extended release(part/cryst) cetirizine 10 mg tablet (Allergy 10 mg PO BID 02/14/25 02/14/25 Relief (cetirizine)) cholecalciferol (vitamin D3) 25 125 mcg PO DAILY 02/14/25 02/14/25 mcg (1,000 unit) capsule diphenhydramine 25 1 tab PO .QHS 02/14/25 02/14/25 mg-acetaminophen 500 mg tablet (Acetaminophen PM) furosemide 40 mg tablet (Lasix) 80 mg PO BID 02/14/25 02/14/25 omeprazole 20 mg capsule,delayed 20 mg PO BID 02/14/25 02/14/25 release prednisolone acetate 1 % eye 1 drp ophthalmic (eye) TID 02/14/25 02/14/25 drops,suspension primidone 50 mg tablet 50 mg PO Q8H 02/14/25 02/14/25 sitagliptin phosphate 100 mg 100 mg PO DAILY 02/14/25 02/14/25 tablet (Januvia) Previous Rx's ?Medication ?Instructions ?Recorded clonidine HCl 0.1 mg tablet 0.2 mg (2 x 0.1 mg) PO Q12H #120 08/17/24 tabs Allergies Allergy/AdvReac Type Severity Reaction Status Date / Time nitroglycerin Allergy Intermediate Hypotension Verified 10/28/24 19:28 Iodinated Contrast Media AdvReac Intermediate renal Verified 10/28/24 19:28 problem Opioid HPI Opioid Management Most Recent Opioid Data: Last Pain Scale 2 10/30/24 19:00 10/30/24 Last ORT Total Score 0 10/29/24 00:41 10/29/24 Last ORT Risk Category Low Risk 10/29/24 00:41 10/29/24 Review of Systems ROS Status of ROS 10 or more systems reviewed and unremark able except as noted in history and below [facility] Medical History (Updated 02/14/25 @ 12:30 by Josie Astudillo MD) BPH with obstruction/lower urinary tract symptoms ?N40.1 - Benign prostatic hyperplasia with lower urinary tract symptoms (ICD- 10) ?N13.8 - Other obstructive and reflux uropathy (ICD-10) Clot retention of urine ?R33.8 - Other retention of urine (ICD-10) Hematuria ?R31.9 - Hematuria, unspecified (ICD-10) Acute urinary obstruction ?N13.9 - Obstructive and reflux uropathy, unspecified (ICD-10) Atrial fibrillation ?I48.91 - Unspecified atrial fibrillation (ICD-10) Lethargy ?R53.83 - Other fatigue (ICD-10) Difficulty with speech ?R47.9 - Unspecified speech disturbances (ICD-10) AMS (altered mental status) ?R41.82 - Altered mental status, unspecified (ICD-10) Balanitis ?N48.1 - Balanitis (ICD-10) Pulmonary edema ?J81.1 - Chronic pulmonary edema (ICD-10) Dyspnea ?R06.00 - Dyspnea, unspecified (ICD-10) Congestive heart failure ?I50.9 - Heart failure, unspecified (ICD-10) Heart failure ?I50.9 - Heart failure, unspecified (ICD-10) Neuropathy ?G62.9 - Polyneuropathy, unspecified (ICD-10) Occasional tremors ?R25.1 - Tremor, unspecified (ICD-10) History of diverticulosis ?Z87.19 - Personal history of other diseases of the digestive system (ICD-10) History of sleep apnea ?Z86.69 - Personal history of other diseases of the nervous system and sense organs (ICD-10) Diabetes ?E11.9 - Type 2 diabetes mellitus without complications (ICD-10) History of hypertension ?Z86.79 - Personal history of other diseases of the circulatory system (ICD- 10) History of gastroesophageal reflux (GERD) ?Z87.19 - Personal history of other diseases of the digestive system (ICD-10) History of asthma ?Z87.09 - Personal history of other diseases of the respiratory system (ICD- 10) Surgical History History of cardiac catheterization ?Z98.890 - Other specified postprocedural states (ICD-10) History of cholecystectomy ?Z90.49 - Acquired absence of other specified parts of digestive tract (ICD- 10) Family History Father Family history of myocardial infarction Family history of CHF (congestive heart failure) Family history of hypertension Mother Family history of cancer Grandmother Family history of diabetes mellitus Social History Within the past year, how often did you have a drink containing alcohol: 2-4 times a month Smoking status: Former smoker Non-prescribed substance use: denies use Highest level of school completed/degree received: 9th grade Little interest or pleasure in doing things: not at all Feeling down, depressed, or hopeless: not at all Do you think of yourself as: straight/heterosexual Gender Identity: male Exam Narrative Exam Narrative: Nurses notes and vital signs reviewed and patient is not hypoxic. General: Well-appearing and in no apparent distress. Skin: Warm, dry, no pallor noted. No rash. Head: Normocephalic, atraumatic. Neck: Supple, non-tender. Cardiovascular: Regular Rate and Rhythm without murmur, gallop or rub. Respiratory: No accessory muscle use or respiratory distress. Lungs are clear to auscultation, no wheezing, rales or rhonchi Chest Wall: no tenderness Back: No midline thoracic or lumbar vertebral tenderness. No CVA tenderness Musculoskeletal: normal ROM, no calf or popliteal tenderness, no lower extremity edema/swelling GI: Abdomen is soft, non-distended. Normal bowel sounds. No masses appreciated. No tenderness to palpation. No rebound, guarding, or rigidity noted. Neurological: A&O x4. No cranial nerve dysfunction observed. . Moves all extremities. Sensation intact. Psychiatric: Cooperative and interactive. Normal mood and affect. Constitutional Vital Signs, click to edit/add: Last Vital Signs Temp 97.8 F 02/14/25 09:44 Pulse 79 02/14/25 10:49 Resp 20 02/14/25 10:49 BP 151/66 H 02/14/25 10:49 Pulse Ox 96 02/14/25 10:49 O2 Del Method Room Air 02/14/25 10:49 Course Vital Signs Vital signs: Vital Signs Temperature 97.8 F 02/14/25 09:44 Pulse Rate 75 02/14/25 09:44 Respiratory Rate 18 02/14/25 09:44 Blood Pressure 123/58 02/14/25 09:44 Pulse Oximetry 95 02/14/25 09:44 Oxygen Delivery Method Room Air 02/14/25 09:44 Temperature 97.8 F 02/14/25 09:44 Pulse Rate 79 02/14/25 10:49 Respiratory Rate 20 02/14/25 10:49 Blood Pressure 151/66 H 02/14/25 10:49 Pulse Oximetry 96 02/14/25 10:49 Oxygen Delivery Method Room Air 02/14/25 10:49 Medical Decision Making MDM Narrative Medical decision making narrative: The patient EKG in the ER showing A-fib with a heart rate of [address] elevation or depression CBC and chemistry showed no acute significant pathology with mild increase in the BUN although the creatinine is at baseline from chronic kidney disease Urinalysis showed no UTI The patient MRI results was discussed with telestroke team and after pushing the images for [facility] to be evaluated the teleneurologist recommended the patient to be admitted for further evaluation with adding A1c and LDL to his blood workup and an echo then patient Patient case discussed with Dr. Sung and he agreed on admitting the patient for further evaluation Lab Data Labs: Lab Results 02/14/25 02/14/25 Range/Units 09:55 10:55 WBC 8.1 (4.0-11.0) 10^3/uL RBC 3.84 L (4.70-6.10) 10^6/uL Hgb 11.1 L (14.0-18.0) g/dL Hct 34.6 L (42.0-54.0) % MCV 90.1 (80.0-94.0) fL MCH 28.9 (25.9-34.0) pg MCHC 32.1 (29.9-35.2) g/dL RDW 16.6 H (11.0-15.0) % Plt Count 229 (150-450) 10^3/uL MPV 11.6 (9.5-13.5) fL Neut % (Auto) 81.1 H (43.0-75.0) % Lymph % (Auto) 8.4 L (20.5-60.0) % [place] % (Auto) 7.6 (1.7-12.0) % Eos % (Auto) 2.0 (0.9-7.0) % Baso % (Auto) 0.4 (0.2-2.0) % Neut # (Auto) 6.6 H (1.4-6.5) 10^3/uL Lymph # (Auto) 0.7 L (1.2-3.8) 10^3/uL [place] # (Auto) 0.6 (0.3-0.8) 10^3/uL Eos # (Auto) 0.2 (0.0-0.7) 10^3/uL Baso # (Auto) 0.0 (0.0-0.1) 10^3/uL Abs Immat Gran (auto) 0.04 H (0.00-0.03) 10^3/uL Imm/Tot Granulo (auto) 0.5 (0.0-0.5) % PT 10.7 (9.0-11.6) sec INR 1.01 Sodium 139 (136-145) mmol/L Potassium 4.3 (3.5-5.1) mmol/L Chloride 101 (98-107) mmol/L Carbon Dioxide 28.0 (21.0-32.0) mmol/L Anion Gap 14.3 BUN 31.0 H (7.0-18.0) mg/dL Creatinine 1.77 H (0.70-1.30) mg/dL Est GFR ( Amer) 44 L (>=60 mL/min/1.73m^2) Est GFR (Non-Af Amer) 37 L (>=60 mL/min/1.73m^2) BUN/Creatinine Ratio 17.5 Glucose 256 H (74-106) mg/dL Calcium 9.0 (8.5-10.1) mg/dL Total Bilirubin 0.4 (0.2-1.0) mg/dL AST 14 L (15-37) U/L ALT 11 L (16-63) U/L Alkaline Phosphatase 92 (46-116) U/L Total Protein 6.9 (6.4-8.2) g/dL Albumin 3.4 (3.4-5.0) g/dL Globulin 3.5 g/dL Albumin/Globulin Ratio 1.0 Urine Color Lt. yellow (YELLOW) Urine Clarity Clear (CLEAR) Urine pH 7.0 (5.0-9.0) Ur Specific [place] 1.010 (1.005-1.025) Urine Protein Negative (NEG/TRACE) mg/dL Urine Glucose (UA) >=1000 A (NEGATIVE) mg/dL Urine Ketones Negative (NEGATIVE) mg/dL Urine Occult Blood Negative (NEGATIVE) Urine Nitrite Negative (NEGATIVE) Urine Bilirubin Negative (NEGATIVE) Urine Urobilinogen 0.2 (0.2-1.0) EU/dL Ur Leukocyte Esterase Negative (NEGATIVE) Discharge Plan Discharge Chief Complaint: Recheck/Abnormal Lab/Rx Clinical Impression: CVA (cerebral vascular accident) Patient Disposition: Admitted As Inpatient Time of Disposition Decision: 12:30
[2025-02-14 13:36] LABS: Estimated Average Glucose 272 mg/dL; Glycohemoglobin A1C 11.1 % (4.5-6.2)
[2025-02-14 13:40] LABS: LDL Cholesterol Direct 120 mg/dL
[2025-02-14 13:41] LABS: Troponin I High Sensitivity 15.2 pg/mL (4.0-76.1)
[2025-02-14] MEDS: PRIMIDONE 50 MG TABLET PO ×2 (16:03→22:36)
[2025-02-14] MEDS: LABETALOL HCL 100 MG TABLET 300 MG PO ×2 (16:03→22:13)
[2025-02-14] MEDS: LACTATED RINGER'S SOLUTION 1,000 ML 50 ML IV (16:04)
[2025-02-14] MEDS: ENSURE HP 237 ML LIQUID PO ×2 (16:05→22:14)
[2025-02-14 16:16] LABS: Glucometer 229 mg/dL (74-106)
[2025-02-14] MEDS: PREDNISOLONE ACETATE OP 1% SUSP 100 DROPS/5 ML 1 DROP OP ×2 (16:28→22:18)
[2025-02-14] MEDS: INSULIN ASPART 300 UNIT/3 ML PEN SUBQ ×2 (16:29→22:19)
--- NOTE | 2025-02-14 17:18 | P.HP_ITS ---
HPI H&P: HPI History of Present Illness Chief complaint: ABNORMAL LAB RECHECK CVA AMS Narrative: Patient is well-known to the office, multiple conversations in the last week with his increasing altered mental status, patient does not recall these episodes, no focal neurological deficits but MRI scan was obtained and MRI scan showed multiple infarcts and was referred to ER, ER had conversation with telestroke who recommended admission for continued workup of the new onset multifocal strokes Opioid HPI Opioid Management Most Recent Pain and Opioid Data: Last Pain Scale 2 10/30/24 19:00 10/30/24 Last Pain Assessment 02/14/25 17:00 Last ORT Total Score 0 02/14/25 14:24 02/14/25 Last ORT Risk Category Low Risk 02/14/25 14:24 02/14/25 Review of Systems ROS Status of ROS 10 or more systems reviewed and unremark able except as noted in h istory and below [facility] Medical History (Updated 02/14/25 @ 12:34 by Josie Astudillo MD) BPH with obstruction/lower urinary tract symptoms ?N40.1 - Benign prostatic hyperplasia with lower urinary tract symptoms (ICD- 10) ?N13.8 - Other obstructive and reflux uropathy (ICD-10) Clot retention of urine ?R33.8 - Other retention of urine (ICD-10) Hematuria ?R31.9 - Hematuria, unspecified (ICD-10) Acute urinary obstruction ?N13.9 - Obstructive and reflux uropathy, unspecified (ICD-10) Atrial fibrillation ?I48.91 - Unspecified atrial fibrillation (ICD-10) Lethargy ?R53.83 - Other fatigue (ICD-10) Difficulty with speech ?R47.9 - Unspecified speech disturbances (ICD-10) AMS (altered mental status) ?R41.82 - Altered mental status, unspecified (ICD-10) Balanitis ?N48.1 - Balanitis (ICD-10) Pulmonary edema ?J81.1 - Chronic pulmonary edema (ICD-10) Dyspnea ?R06.00 - Dyspnea, unspecified (ICD-10) Congestive heart failure ?I50.9 - Heart failure, unspecified (ICD-10) Heart failure ?I50.9 - Heart failure, unspecified (ICD-10) Neuropathy ?G62.9 - Polyneuropathy, unspecified (ICD-10) Occasional tremors ?R25.1 - Tremor, unspecified (ICD-10) History of diverticulosis ?Z87.19 - Personal history of other diseases of the digestive system (ICD-10) History of sleep apnea ?Z86.69 - Personal history of other diseases of the nervous system and sense organs (ICD-10) Diabetes ?E11.9 - Type 2 diabetes mellitus without complications (ICD-10) History of hypertension ?Z86.79 - Personal history of other diseases of the circulatory system (ICD- 10) History of gastroesophageal reflux (GERD) ?Z87.19 - Personal history of other diseases of the digestive system (ICD-10) History of asthma ?Z87.09 - Personal history of other diseases of the respiratory system (ICD- 10) Surgical History History of cardiac catheterization ?Z98.890 - Other specified postprocedural states (ICD-10) History of cholecystectomy ?Z90.49 - Acquired absence of other specified parts of digestive tract (ICD- 10) Family History Father Family history of myocardial infarction Family history of CHF (congestive heart failure) Family history of hypertension Mother Family history of cancer Grandmother Family history of diabetes mellitus Social History Within the past year, how often did you have a drink containing alcohol: 2-4 times a month Smoking status: Former smoker Non-prescribed substance use: denies use Highest level of school completed/degree received: 9th grade Little interest or pleasure in doing things: not at all Feeling down, depressed, or hopeless: not at all Do you think of yourself as: straight/heterosexual Gender Identity: male Meds Home Medications and Allergies Home Medications ?Medication ?Instructions ?Recorded ?Confirmed ?Type Vitamin B-Complex 1 tab PO .NOON 05/31/23 02/14/25 History apixaban 2.5 mg tablet 2.5 mg PO BID 05/31/23 02/14/25 History aspirin 81 mg tablet,delayed 81 mg PO DAILY 05/31/23 02/14/25 History release (Adult Low Dose Aspirin) dicyclomine 10 mg capsule 10 mg PO QID PRN abdominal pain 05/31/23 02/14/25 History empagliflozin 25 mg tablet 25 mg PO DAILY 05/31/23 02/14/25 History (Jardiance) ezetimibe 10 mg tablet 10 mg PO DAILY 05/31/23 02/14/25 History glimepiride 4 mg tablet 8 mg PO DAILY 05/31/23 02/14/25 History labetalol 300 mg tablet 300 mg PO TID 05/31/23 02/14/25 History magnesium See Rx Instructions PO BID 05/31/23 02/14/25 History tamsulosin 0.4 mg capsule 0.4 mg PO Q24H 05/31/23 02/14/25 History alprazolam 0.25 mg tablet 0.25 mg PO BID PRN anxiety 08/16/24 02/14/25 History duloxetine 20 mg capsule,delayed 20 mg PO .QD 08/16/24 02/14/25 History release pioglitazone 45 mg tablet (Actos) 45 mg PO DAILY 08/16/24 02/14/25 History potassium chloride 20 mEq 40 meq PO .QD 08/16/24 02/14/25 History tablet,extended release(part/cryst) clonidine HCl 0.1 mg tablet 0.2 mg (2 x 0.1 mg) PO Q12H #120 08/17/24 02/14/25 Rx tabs cetirizine 10 mg tablet (Allergy 10 mg PO BID 02/14/25 02/14/25 History Relief (cetirizine)) cholecalciferol (vitamin D3) 25 125 mcg PO DAILY 02/14/25 02/14/25 History mcg (1,000 unit) capsule diphenhydramine 25 1 tab PO .QHS 02/14/25 02/14/25 History mg-acetaminophen 500 mg tablet (Acetaminophen PM) furosemide 40 mg tablet (Lasix) 80 mg PO BID 02/14/25 02/14/25 History omeprazole 20 mg capsule,delayed 20 mg PO BID 02/14/25 02/14/25 History release prednisolone acetate 1 % eye 1 drp ophthalmic (eye) TID 02/14/25 02/14/25 History drops,suspension primidone 50 mg tablet 50 mg PO Q8H 02/14/25 02/14/25 History sitagliptin phosphate 100 mg 100 mg PO DAILY 02/14/25 02/14/25 History tablet (Januvia) Allergies Allergy/AdvReac Type Severity Reaction Status Date / Time nitroglycerin Allergy Intermediate Hypotension Verified 10/28/24 19:28 Iodinated Contrast Media AdvReac Intermediate renal Verified 10/28/24 19:28 problem Exam Constitutional Vital Signs, click to edit/add: Last Vital Signs Temp 98 F 02/14/25 16:00 Pulse 70 02/14/25 16:00 Resp 18 02/14/25 16:00 BP 184/81 H 02/14/25 16:00 Pulse Ox 95 02/14/25 16:00 O2 Del Method Room Air 02/14/25 16:00 Documenting provider has reviewed patient's vital signs: yes Common normals: no apparent distress Respiratory Common normals: normal respiratory effort, no use of accessory muscles and clear to auscultation bilaterally Cardio Common normals: regular rate and regular rhythm; murmurs detected Results Labs Labs: Short CBC 02/14/25 Range/Units 09:55 WBC 8.1 (4.0-11.0) 10^3/uL Hgb 11.1 L (14.0-18.0) g/dL Hct 34.6 L (42.0-54.0) % Plt Count 229 (150-450) 10^3/uL BMP 02/14/25 09:55 Sodium 139 Potassium 4.3 Chloride 101 Carbon Dioxide 28.0 BUN 31.0 H Creatinine 1.77 H Glucose 256 H Calcium 9.0 Liver Function 02/14/25 Range/Units 09:55 Total Bilirubin 0.4 (0.2-1.0) mg/dL AST 14 L (15-37) U/L ALT 11 L (16-63) U/L Alkaline Phosphatase 92 (46-116) U/L Albumin 3.4 (3.4-5.0) g/dL Urine 02/14/25 Range/Units 10:55 Urine Color Lt. 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 regional 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 Diabetes mellitus complication status: with hyperglycemia Qualified Code(s): E11.65 - Type 2 diabetes mellitus with hyperglycemia Plan Admission findings: MRI scan with significant multifocal infarcts, uncontrolled hypertension, anemia, mild elevation in creatinine compared to his baseline Acute multifocal CVA's -consultation with telestroke team, will obtain MRAs of the head and neck and those were negative, echocardiogram is still pending, started Plavix, discussed with cardiology Plavix versus Eliquis, patient on Eliquis and aspirin on his medication profile but having strokes and that combination Short run of ventricular tachycardia-already on a good dose of labetalol, consult to cardiology Diabetes mellitus-very poorly controlled secondary to his oral intake-insulin sliding scale Hypertension-already controlled-improved from admission, continue to follow Tremor-continue with home primidone BPH-continue with home medications GERD continue with home medications Admission status: Patient with acute CVA, medically necessary treatment will span 2 midnights. Inpatient status
[2025-02-14] MEDS: PANTOPRAZOLE SODIUM 40 MG TABLET.DR PO (22:07)
[2025-02-14] MEDS: MAGNESIUM OXIDE 400 MG TABLET PO (22:07)
[2025-02-14] MEDS: CLONIDINE HCL 0.1 MG TABLET 0.2 MG PO (22:07)
[2025-02-14 22:21] LABS: Glucometer 161 mg/dL (74-106)
[2025-02-15] VITALS (20 sets, daily range): BP systolic 161–187; BP diastolic 66–87; PULSE 55–79; TEMP 36.4–36.9; O2SAT 92–96
[2025-02-15 05:55] LABS: Basophils Percent Auto 0.6 % (0.2-2.0); Eosinophils Absolute Auto 0.2 10^3/uL (0.0-0.7); Eosinophils Percent Auto 4.1 % (0.9-7.0); Hematocrit 31.3 % (42.0-54.0); Hemoglobin 10.3 g/dL (14.0-18.0); Immature Granulocytes Abs Auto 0.01 10^3/uL (0.00-0.03); Immature Granulocytes Pct Auto 0.2 % (0.0-0.5); Lymphocytes Absolute Auto 0.8 10^3/uL (1.2-3.8); Lymphocytes Percent Auto 15.7 % (20.5-60.0); Mean Corpuscular HGB Conc 32.9 g/dL (29.9-35.2); Mean Corpuscular Hemoglobin 29.1 pg (25.9-34.0); Mean Corpuscular Volume 88.4 fL (80.0-94.0); Mean Platelet Volume 11.8 fL (9.5-13.5); Monocytes Absolute Auto 0.7 10^3/uL (0.3-0.8); Monocytes Percent Auto 13.5 % (1.7-12.0); Neutrophils Absolute Auto 3.5 10^3/uL (1.4-6.5); Neutrophils Percent Auto 65.9 % (43.0-75.0); Platelet Count 215 10^3/uL (150-450); Red Blood Count 3.54 10^6/uL (4.70-6.10); Red Cell Distribution Width 16.5 % (11.0-15.0); White Blood Count 5.4 10^3/uL (4.0-11.0)
[2025-02-15] MEDS: PRIMIDONE 50 MG TABLET PO ×3 (06:12→21:13)
[2025-02-15] MEDS: PREDNISOLONE ACETATE OP 1% SUSP 100 DROPS/5 ML 1 DROP OP ×3 (06:12→21:15)
[2025-02-15 06:34] LABS: BUN Creatinine Ratio 20.1; Calcium 8.9 mg/dL (8.5-10.1); Carbon Dioxide 26.8 mmol/L (21.0-32.0); Chloride 103 mmol/L (98-107); Estimated GFR (African America 49 (>=60 mL/min/1.73m^2); Estimated GFR (Non-African Ame 40 (>=60 mL/min/1.73m^2); Glucose 223 mg/dL (74-106); Potassium 3.8 mmol/L (3.5-5.1); Sodium 141 mmol/L (136-145)
[2025-02-15 07:41] LABS: Glucometer 199 mg/dL (74-106)
[2025-02-15] MEDS: INSULIN ASPART 300 UNIT/3 ML PEN SUBQ ×3 (07:46→21:16)
[2025-02-15] MEDS: CANAGLIFLOZIN 100 MG TABLET PO (08:58)
[2025-02-15] MEDS: ASPIRIN 81 MG TABLET.DR PO (08:58)
[2025-02-15] MEDS: CLONIDINE HCL 0.1 MG TABLET 0.2 MG PO ×2 (08:59→21:13)
[2025-02-15] MEDS: CLOPIDOGREL BISULFATE 75 MG TABLET PO (09:00)
[2025-02-15] MEDS: EZETIMIBE 10 MG TABLET PO (09:01)
[2025-02-15] MEDS: GLIMEPIRIDE 2 MG TABLET 8 MG PO (09:02)
[2025-02-15] MEDS: PANTOPRAZOLE SODIUM 40 MG TABLET.DR PO ×2 (09:03→21:13)
[2025-02-15] MEDS: MAGNESIUM OXIDE 400 MG TABLET PO ×2 (09:03→21:13)
[2025-02-15] MEDS: ENSURE HP 237 ML LIQUID PO ×2 (09:03→21:13)
[2025-02-15] MEDS: SITAGLIPTIN PHOSPHATE 50 MG TABLET 100 MG PO (09:04)
[2025-02-15] MEDS: PIOGLITAZONE 15 MG TABLET 45 MG PO (09:04)
[2025-02-15] MEDS: TAMSULOSIN HCL 0.4 MG CAPSULE PO (09:05)
[2025-02-15] MEDS: DULOXETINE HCL 20 MG CAPSULE.DR PO (09:27)
[2025-02-15 12:11] LABS: Glucometer 196 mg/dL (74-106)
--- NOTE | 2025-02-15 12:22 | P.PN_ITS ---
Progress Note: Subjective Subjective Interval history: No new complaints - pretty awake this am Exam Constitutional Vital Signs, click to edit/add: Last Vital Signs Temp 97.5 F L 02/15/25 12:00 Pulse 59 L 02/15/25 12:00 Resp 18 02/15/25 12:00 BP 170/66 H 02/15/25 12:00 Pulse Ox 96 02/15/25 12:00 O2 Del Method Room Air 02/15/25 12:00 Documenting provider has reviewed patient's vital signs: yes Common normals: no apparent distress Respiratory Common normals: normal respiratory effort, no use of accessory muscles and clear to auscultation bilaterally Cardio Common normals: regular rate, regular rhythm, S1 normal heart sound and S2 normal heart sound; murmurs detected Neuro Common normals: oriented x3, CN's II-XII intact bilaterally and moves all extremities Progress Note: Objective Labs Labs: Short CBC 02/15/25 Range/Units 05:25 WBC 5.4 (4.0-11.0) 10^3/uL Hgb 10.3 L (14.0-18.0) g/dL Hct 31.3 L (42.0-54.0) % Plt Count 215 (150-450) 10^3/uL BMP 02/15/25 05:25 Sodium 141 Potassium 3.8 Chloride 103 Carbon Dioxide 26.8 BUN 33.0 H Creatinine 1.64 H Glucose 223 H Calcium 8.9 Progress Note: A&P Assessment and Plan (1) CVA (cerebral vascular accident): (2) AMS (altered mental status): (3) Congestive heart failure: Qualifiers: Heart failure chronicity: chronic Heart failure type: unspecified Qualified Code(s): I50.9 - Heart failure, unspecified (4) Diabetes: Qualifiers: Diabetes mellitus type: type 2 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 Diabetes mellitus complication status: with hyperglycemia Qualified Code(s): E11.65 - Type 2 diabetes mellitus with hyperglycemia Plan Admission findings: MRI scan with significant multifocal infarcts, uncontrolled hypertension, anemia, mild elevation in creatinine compared to his baseline Acute multifocal CVA's -no new symptoms overnmight Short run of ventricular tachycardia-already on a good dose of labetalol, consult to cardiology - still pending - christiane d/c unless cardiology and telestroke are needing further testing Diabetes mellitus-very poorly controlled secondary to his oral intake-insulin sliding scale Hypertension-already controlled-improved from admission, continue to follow Tremor-continue with home primidone BPH-continue with home medications GERD continue with home medications Admission status: Patient with acute CVA, medically necessary treatment will span 2 midnights. Inpatient status
--- NOTE | 2025-02-15 12:55 | CA_ITS ---
Patient Name: NADIR HEREDIA MR#: [id number] : 1940 Exam Date: 02/15/2025 Ordering Doctor: DR Pj Sung . ECHOCARDIOGRAM REPORT PROCEDURE: CA ECHO DOPPLER COMPLETE INDICATIONS: Dyspnea, CVA, atrial fibrillation, hypertension, diabetes COMPARISON: None. DESCRIPTION: COMPLETE ECHOCARDIOGRAM Real-time transthoracic echocardiography with 2D, M-mode, spectral and color flow Doppler performed. QUALITY: Technical quality was good. LEFT VENTRICLE: Normal chamber size. Moderate to Severe concentric left ventricular hypertrophy. LV EF: Normal left ventricular systolic function, No WMA, ejection fraction 65-70% DIASTOLIC: Not adequately assessed due to heart rhythm. ATRIAL SEPTUM: Agitated saline contrast does not reveal an intra-cardiac shunt. LEFT ATRIUM: Severe dilatation. RIGHT ATRIUM: Severe dilatation. RIGHT VENTRICLE: Moderate dilatation. Reduced right ventricular systolic function. TRICUSPID VALVE: Normal mobility and thickness. No stenosis with mild regurgitation. Doppler studies reveal severely (>60) elevated right sided pressures.RVSP 61 mmHg MITRAL VALVE: Normal mobility and thickness. No evidence of mitral valve stenosis. Moderate mitral annular calcification. Mild mitral regurgitation. AORTIC VALVE: Normal trileaflet appearance. Moderately calcified aortic valve. Moderately diminished mobility. Doppler velocity suggest moderate aortic valve stenosis.Mean PG 21 mmHg, DVI 0.26, MELY 1.1 cm2. Trivial aortic regurgitation. AORTIC ROOT: Aortic root is dilated (4.2 cm) PULMONIC VALVE: Normal thickness and mobility. No stenosis. Mild regurgitation. PERICARDIUM: Moderate pericardial effusion. No evidence of tamponade IVC: Not seen PLEURA: CONCLUSION: Moderate to severe concentric left ventricular hypertrophy Normal left ventricle systolic function without wall motion abnormalities, ejection fraction 65 to 70% Moderately dilated right ventricle with reduced systolic function Severely elevated right ventricle systolic pressure, RVSP 61 mmHg Severe biatrial dilatation Moderate aortic valve stenosis Trace aortic insufficiency Dilated aortic root 4.2 cm Mild mitral regurgitation Mild tricuspid regurgitation Moderate pericardial effusion without evidence of tamponade Moderate mitral annulus calcification Adult Echocardiography Procedure Report Left Ventricle LVEDD (3.7 - 5.6 cm): 4.17 cm LVESD (2.2 - 4.0 cm): 2.72 cm LVIVS thickness (0.6 - 1.2 cm): 1.74 cm LVPW thickness (0.5 - 1.0 cm): 1.55 cm LVOT Max Gradient: 2.95 mm[Hg], 2.32 mm[Hg] LVOT Area (cm2): 0.81 m/s Peak Velocity (LVOT): 0.86 m/s, 0.76 m/s Mean Velocity (LVOT): 0.58 m/s LVOT Diameter 2.21 cm Left Atrium LA Volume Index (2D A2C): 95.66 ml/m2 Left Atrium Systolic Dimension: 5.81 cm Mitral Valve Mitral Valve E-Wave Peak Velocity: 1.05 m/s Right Ventricle Aorta AO Root Diam: 4.17 cm Ascending Ao Diam: 3.54 cm Aortic Valve AoV Area (Peak Kyle): 1.00 cm2, 1.05 cm2, 0.95 cm2 AoV Area (VTI): 1.09 cm2, 1.16 cm2, 1.01 cm2 Peak Velocity(Antegrade Flow): 3.13 m/s, 3.07 m/s Peak Gradient(Antegrade Flow): 39.25 mm[Hg], 37.65 mm[Hg] Mean Velocity(Antegrade Flow): 2.14 m/s, 2.11 m/s Mean Gradient(Antegrade Flow): 21.06 mm[Hg], 20.27 mm[Hg] Velocity Time Integral: 80.36 cm, 70.58 cm Tricuspid Valve Peak Velocity (Regurgitant Flow): 3.66 m/s, 2.56 m/s, 3.63 m/s, 3.56 m/s Pulmonic Valve Peak Velocity: 0.87 m/s Peak Gradient: 2.66 mm[Hg], 3.69 mm[Hg], 2.77 mm[Hg] Right Atrium Right Atrium Systolic Pressure: 183.46 ml, 183.46 ml Dictated by: Albaro Faulkner MD on 02/15/2025 at 16:14 Approved by: Albaro Faulkner MD on 02/15/2025 at 16:31
--- NOTE | 2025-02-15 13:53 | SWNOTE1 ---
Important Message from Medicare reviewed and discussed with patient. Pt. verbalized understanding and signed the form. Original given to patient and copy placed in patient?s chart.
--- NOTE | 2025-02-15 13:53 | SWNOTE1 ---
SW met with pt, pt's , and pt's daughter in room. Pt voiced he is doing well and possibly going home later today. Pt is up and independent and does not use any devices at home. Pt has no services coming in. No anticipated discharge needs at this time. SW to follow as needed.
[2025-02-15] MEDS: LABETALOL HCL 100 MG TABLET 300 MG PO ×2 (15:19→21:13)
[2025-02-15 16:18] LABS: Glucometer 119 mg/dL (74-106)
--- NOTE | 2025-02-15 16:58 | PM.CACN ---
History of Present Illness History of Present Illness Consult date: 02/15/25 Requesting physician: Pj Sung Chief complaint: Acute CVA, mental status changes Narrative: The patient 85-year-old male with prior history of persistent atrial fibrillation on Eliquis, coronary artery disease on aspirin, valvular heart disease including moderate aortic stenosis, pulmonary hypertension, left renal artery stenosis status post PTCA and stent April 2015, history of chronic kidney disease, hypertension, hyperlipidemia, and diabetes mellitus He presented with mental status changes mainly hallucinations and night ferguson on and of for the last week. Brain MRI done as outpatient showed many acute to subacute small vessel infarctions. Patient was admitted to the hospital. Telemetry neuroconsult was obtained from [facility] and it was felt that his stroke probably cardioembolic in source. It was recommended to obtain an echo and also to increase Eliquis to 5 mg twice daily daily and to continue the aspirin or change to another DOAC, it was recommended to consult cardiology for that. Therefore cardiology consult was obtained. The patient states that he feels much better and his neurological symptoms resolved. He denies any chest pain or shortness of breath at rest or with exertion. He states that since increased his Lasix last visit he has been doing well. He denies any dizziness or palpitations. Legs edema has been much better and he has only mild edema. He denies orthopnea or paroxysmal nocturnal dyspnea. Patient and his states that he has been compliant with all his medications and he takes aspirin as well as Eliquis twice daily regularly without any interruption. He had an interruption for only 2 days of his Eliquis back in October 2024 for urology procedure and none since then. On Eliquis 2.5 mg twice daily due to his age and renal dysfunction EKG on admission showed atrial fibrillation with old septal WA and left axis deviation. TSH is normal. HbA1c is significantly high 11%, lactate 1.8, creatinine 1.64 which is around his baseline. His blood pressure has been elevated since admission. He is on clonidine and labetalol Review of Systems ROS Narrative All systems were reviewed and they were negative except for the positive findings noted above in the history [facility] Medical History (Updated 02/15/25 @ 17:50 by Albaro Faulkner MD) BPH with obstruction/lower urinary tract symptoms ?N40.1 - Benign prostatic hyperplasia with lower urinary tract symptoms (ICD-10) ?N13.8 - Other obstructive and reflux uropathy (ICD-10) Clot retention of urine ?R33.8 - Other retention of urine (ICD-10) Hematuria ?R31.9 - Hematuria, unspecified (ICD-10) Acute urinary obstruction ?N13.9 - Obstructive and reflux uropathy, unspecified (ICD-10) Atrial fibrillation ?I48.91 - Unspecified atrial fibrillation (ICD-10) Lethargy ?R53.83 - Other fatigue (ICD-10) Difficulty with speech ?R47.9 - Unspecified speech disturbances (ICD-10) AMS (altered mental status) ?R41.82 - Altered mental status, unspecified (ICD-10) Balanitis ?N48.1 - Balanitis (ICD-10) Pulmonary edema ?J81.1 - Chronic pulmonary edema (ICD-10) Dyspnea ?R06.00 - Dyspnea, unspecified (ICD-10) Congestive heart failure ?I50.9 - Heart failure, unspecified (ICD-10) Heart failure ?I50.9 - Heart failure, unspecified (ICD-10) Neuropathy ?G62.9 - Polyneuropathy, unspecified (ICD-10) Occasional tremors ?R25.1 - Tremor, unspecified (ICD-10) History of diverticulosis ?Z87.19 - Personal history of other diseases of the digestive system (ICD-10) History of sleep apnea ?Z86.69 - Personal history of other diseases of the nervous system and sense organs (ICD-10) Diabetes ?E11.9 - Type 2 diabetes mellitus without complications (ICD-10) History of hypertension ?Z86.79 - Personal history of other diseases of the circulatory system (ICD-10) History of gastroesophageal reflux (GERD) ?Z87.19 - Personal history of other diseases of the digestive system (ICD-10) History of asthma ?Z87.09 - Personal history of other diseases of the respiratory system (ICD-10) Surgical History History of cardiac catheterization ?Z98.890 - Other specified postprocedural states (ICD-10) History of cholecystectomy ?Z90.49 - Acquired absence of other specified parts of digestive tract (ICD-10) Family History Father Family history of myocardial infarction Family history of CHF (congestive heart failure) Family history of hypertension Mother Family history of cancer Grandmother Family history of diabetes mellitus Social History Within the past year, how often did you have a drink containing alcohol: 2-4 times a month Smoking status: Former smoker Non-prescribed substance use: denies use Highest level of school completed/degree received: 9th grade Little interest or pleasure in doing things: not at all Feeling down, depressed, or hopeless: not at all Do you think of yourself as: straight/heterosexual Gender Identity: male Meds Home Medications and Allergies Home Medications ?Medication ?Instructions ?Recorded ?Confirmed ?Type Vitamin B-Complex 1 tab PO .NOON 05/31/23 02/14/25 History apixaban 2.5 mg tablet 2.5 mg PO BID 05/31/23 02/14/25 History aspirin 81 mg tablet,delayed 81 mg PO DAILY 05/31/23 02/14/25 History release (Adult Low Dose Aspirin) dicyclomine 10 mg capsule 10 mg PO QID PRN abdominal pain 05/31/23 02/14/25 History empagliflozin 25 mg tablet 25 mg PO DAILY 05/31/23 02/14/25 History (Jardiance) ezetimibe 10 mg tablet 10 mg PO DAILY 05/31/23 02/14/25 History glimepiride 4 mg tablet 8 mg PO DAILY 05/31/23 02/14/25 History labetalol 300 mg tablet 300 mg PO TID 05/31/23 02/14/25 History magnesium See Rx Instructions PO BID 05/31/23 02/14/25 History tamsulosin 0.4 mg capsule 0.4 mg PO Q24H 05/31/23 02/14/25 History alprazolam 0.25 mg tablet 0.25 mg PO BID PRN anxiety 08/16/24 02/14/25 History duloxetine 20 mg capsule,delayed 20 mg PO .QD 08/16/24 02/14/25 History release pioglitazone 45 mg tablet (Actos) 45 mg PO DAILY 08/16/24 02/14/25 History potassium chloride 20 mEq 40 meq PO .QD 08/16/24 02/14/25 History tablet,extended release(part/cryst) clonidine HCl 0.1 mg tablet 0.2 mg (2 x 0.1 mg) PO Q12H #120 08/17/24 02/14/25 Rx tabs cetirizine 10 mg tablet (Allergy 10 mg PO BID 02/14/25 02/14/25 History Relief (cetirizine)) cholecalciferol (vitamin D3) 25 125 mcg PO DAILY 02/14/25 02/14/25 History mcg (1,000 unit) capsule diphenhydramine 25 1 tab PO .QHS 02/14/25 02/14/25 History mg-acetaminophen 500 mg tablet (Acetaminophen PM) furosemide 40 mg tablet (Lasix) 80 mg PO BID 02/14/25 02/14/25 History omeprazole 20 mg capsule,delayed 20 mg PO BID 02/14/25 02/14/25 History release prednisolone acetate 1 % eye 1 drp ophthalmic (eye) TID 02/14/25 02/14/25 History drops,suspension primidone 50 mg tablet 50 mg PO Q8H 02/14/25 02/14/25 History sitagliptin phosphate 100 mg 100 mg PO DAILY 02/14/25 02/14/25 History tablet (Januvia) Allergies Allergy/AdvReac Type Severity Reaction Status Date / Time nitroglycerin Allergy Intermediate Hypotension Verified 10/28/24 19:28 Iodinated Contrast Media AdvReac Intermediate renal Verified 10/28/24 19:28 problem Exam Narrative Exam Narrative: He is alert, oriented, not in apparent distress HEENT within normal limits Neck supple, normal range of motion, there is transmission of cardiac murmur to the neck, jugular venous pressure is normal Lungs fine crackles on the left base resolved with coughing. Otherwise no rhonchi or wheezes Cardiovascular system irregular irregularity, systolic ejection murmur 3/6 at the aortic area with radiation to the neck Abdomen soft benign no organomegaly or tenderness Extremities trace edema bilaterally on the right more than on the left Neurological examination grossly normal Constitutional Vital Signs, click to edit/add: Last Vital Signs Temp 98.5 F 02/15/25 15:14 Pulse 63 02/15/25 15:58 Resp 16 02/15/25 15:14 BP 167/71 H 02/15/25 15:14 Pulse Ox 95 02/15/25 15:14 O2 Del Method Room Air 02/15/25 15:14 Results Labs and Meds Lab results: CBC 02/15/25 Range/Units 05:25 WBC 5.4 (4.0-11.0) 10^3/uL RBC 3.54 L (4.70-6.10) 10^6/uL Hgb 10.3 L (14.0-18.0) g/dL Hct 31.3 L (42.0-54.0) % Plt Count 215 (150-450) 10^3/uL Neut # (Auto) 3.5 (1.4-6.5) 10^3/uL Lymph # (Auto) 0.8 L (1.2-3.8) 10^3/uL [place] # (Auto) 0.7 (0.3-0.8) 10^3/uL Eos # (Auto) 0.2 (0.0-0.7) 10^3/uL Baso # (Auto) 0.0 (0.0-0.1) 10^3/uL Comprehensive Metabolic Panel 02/15/25 Range/Units 05:25 Sodium 141 (136-145) mmol/L Potassium 3.8 (3.5-5.1) mmol/L Chloride 103 (98-107) mmol/L Carbon Dioxide 26.8 (21.0-32.0) mmol/L BUN 33.0 H (7.0-18.0) mg/dL Creatinine 1.64 H (0.70-1.30) mg/dL Glucose 223 H (74-106) mg/dL Calcium 8.9 (8.5-10.1) mg/dL Intake and Output 02/15/25 02/15/25 02/15/25 07:59 15:59 23:59 Intake Total 1518.333 / 1518.333 Output Total 300 / 400 200 / 650 450 / 650 Balance -300 / -400 1318.333 / 868.333 -450 / 868.333 Intake: Oral 720 / 720 IV 798.333 / 798.333 Lactated Ringer's Solution 1, 798.333 / 798.333 000 ml @ 50 mls/hr IV .Q20H [facility] Rx#:[id number] Output: Urine 300 / 400 200 / 650 450 / 650 Other: # Unmeasured Voids 1 Brain MRI 02/14/2025 There is generalized atrophy. The ventricles are normal in size and position. Patchy increased T2 and FLAIR signal is visualized within the periventricular white matter compatible with chronic microvascular disease. There are also additional small areas of increased T2 and FLAIR signal at the dacosta radiata and splenium of the corpus callosum on the right as well as inferior to the frontal horn of the left lateral ventricle. These areas have associated restricted diffusion compatible with recent small vessel infarcts. There are no additional areas of abnormal signal intensity or restricted diffusion elsewhere within the supra- or infratentorial brain. No midline abnormalities are noted. There are no extra-axial collections or mass effect. There is minimal ethmoid mucosal thickening. IMPRESSION: GENERALIZED ATROPHY. SMALL VESSEL ISCHEMIC CHANGE INCLUDING RECENT WHITE MATTER INFARCTS, DESCRIBED. Impression dictated by: Radha Wright M.D.02/14/2025 9:20 AM Echocardiography 02/15/2025 Moderate to severe concentric left ventricle hypertrophy Normal left ventricle systolic function without wall motion abnormalities, ejection fraction 65 to 70% Moderately dilated right ventricle with reduced systolic function Severely elevated right ventricular systolic pressure, RVSP 61 mmHg Moderate aortic stenosis Trivial aortic insufficiency Mild mitral regurgitation Mild tricuspid regurgitation Moderate pericardial effusion without evidence of tamponade Moderate mitral annulus calcification No atrial shunt by agitated saline Assessment and Plan Assessment and Plan (1) CVA (cerebral vascular accident): Assessment and Plan: Acute to subacute, many small vessel infarcts noted on brain MRI suggesting possible cardioembolic event. The patient has history of chronic atrial fibrillation. No carotid Doppler or CT angio was performed. Patient has been on Eliquis and no interruption over the last 3 months. He is also on baby aspirin (2) AMS (altered mental status): Assessment and Plan: Due to above (3) Aortic stenosis: Assessment and Plan: Moderate, appears stable on current Echo (4) Pericardial effusion: Assessment and Plan: Moderate without evidence of tamponade, stable on current echo (5) Nonsustained ventricular tachycardia: Assessment and Plan: 6 beats noted on the monitor, asymptomatic, could be A-fib with aberrancy (6) (HFpEF) heart failure with preserved ejection fraction: Assessment and Plan: Clinically stable on current medical treatment, he is on labetalol, Jardiance, and Lasix (7) Chronic kidney disease: (8) Essential hypertension: Assessment and Plan: Blood pressure has been elevated since admission. He is on clonidine, labetalol, and Lasix (9) Hyperlipidemia: Assessment and Plan: LDL: Throat: 120 (10) Type 2 diabetes mellitus: Assessment and Plan: Not well-controlled, HbA1c 11% Plan Continue for now aspirin and Eliquis on the current dose Obtain carotid Doppler study to evaluate for presence of significant stenosis. If the carotid Doppler is normal I think we should switch him to another DOAC probably Xarelto, adjust dose according to creatinine clearance per pharmacy He needs aggressive control of risk factors particularly diabetes mellitus which is not under control, also he should be started on high dose of statin atorvastatin 80 mg daily Continue to monitor blood pressure, if remains elevated add amlodipine for better control.
[2025-02-15 19:36] LABS: Glucometer 190 mg/dL (74-106)
[2025-02-16] VITALS (11 sets, daily range): BP systolic 160–174; BP diastolic 65–80; PULSE 56–77; TEMP 36.2–36.7; O2SAT 91–94
[2025-02-16] MEDS: LABETALOL HCL 100 MG TABLET 300 MG PO (05:29)
[2025-02-16] MEDS: PREDNISOLONE ACETATE OP 1% SUSP 100 DROPS/5 ML 1 DROP OP (05:30)
[2025-02-16 06:16] LABS: Basophils Percent Auto 0.5 % (0.2-2.0); Eosinophils Absolute Auto 0.2 10^3/uL (0.0-0.7); Eosinophils Percent Auto 2.8 % (0.9-7.0); Hematocrit 35.5 % (42.0-54.0); Hemoglobin 11.3 g/dL (14.0-18.0); Immature Granulocytes Abs Auto 0.02 10^3/uL (0.00-0.03); Immature Granulocytes Pct Auto 0.2 % (0.0-0.5); Lymphocytes Absolute Auto 0.8 10^3/uL (1.2-3.8); Lymphocytes Percent Auto 9.3 % (20.5-60.0); Mean Corpuscular HGB Conc 31.8 g/dL (29.9-35.2); Mean Corpuscular Hemoglobin 28.4 pg (25.9-34.0); Mean Corpuscular Volume 89.2 fL (80.0-94.0); Mean Platelet Volume 11.4 fL (9.5-13.5); Neutrophils Absolute Auto 6.2 10^3/uL (1.4-6.5); Neutrophils Percent Auto 75.2 % (43.0-75.0); Platelet Count 227 10^3/uL (150-450); Red Blood Count 3.98 10^6/uL (4.70-6.10); Red Cell Distribution Width 16.9 % (11.0-15.0); White Blood Count 8.2 10^3/uL (4.0-11.0)
[2025-02-16 06:28] LABS: Anion Gap 12.7; BUN Creatinine Ratio 21.1; Carbon Dioxide 28.7 mmol/L (21.0-32.0); Chloride 103 mmol/L (98-107); Estimated GFR (African America 46 (>=60 mL/min/1.73m^2); Estimated GFR (Non-African Ame 38 (>=60 mL/min/1.73m^2); Glucose 209 mg/dL (74-106); Potassium 4.4 mmol/L (3.5-5.1); Sodium 140 mmol/L (136-145)
[2025-02-16 08:17] LABS: Glucometer 225 mg/dL (74-106)
--- NOTE | 2025-02-16 08:29 | P.DS_ITS ---
DS: Providers Provider Date of admission: 02/14/25 13:58 Primary care physician: Pj Sung MD Consults: 02/14/25 11:13 Consult to TeleNeurology Routine Reason for consultation: confusion 02/14/25 12:52 Consult to Pharmacy Routine Consulting Provider: Reason for consultation: Please [place] me when Med Rec is Updated Has provider been notified: No Consult to Telestroke Routine Reason for consultation: Stroke - or Teleneurology - whicherone wants it Occupational Therapy Eval and Treat Routine Reason for consultation: Only if needed for Rehab Has provider been notified: No Physical Therapy Eval and Treat Routine Reason for consultation: Eval and Treat Has provider been notified: No 02/14/25 17:17 Consult to Cardiology Routine Reason for consultation: v-tach DS: Diagnosis Discharge Diagnosis (1) CVA (cerebral vascular accident): (2) AMS (altered mental status): (3) Aortic stenosis: (4) Pericardial effusion: (5) Nonsustained ventricular tachycardia: (6) (HFpEF) heart failure with preserved ejection fraction: (7) Chronic kidney disease: (8) Essential hypertension: (9) Hyperlipidemia: (10) Type 2 diabetes mellitus: Plan Admission findings: MRI scan with significant multifocal infarcts, uncontrolled hypertension, anemia, mild elevation in creatinine compared to his baseline Acute multifocal CVA's -no new symptoms overnmight Short run of ventricular tachycardia-already on a good dose of labetalol, consult to cardiology - still pending - gissellee d/c unless cardiology and telestroke are needing further testing Diabetes mellitus-very poorly controlled secondary to his oral intake-insulin sliding scale Hypertension-already controlled-improved from admission, continue to follow Tremor-continue with home primidone BPH-continue with home medications GERD continue with home medications Admission status: Patient with acute CVA, medically necessary treatment will span 2 midnights. Inpatient status ? DS: Summary Hospital Course Hospital Course: Patient well-known to me from the office with long-term relationship, having increasing altered mental status, recommended MRI scan MRI scan showed multiple infarcts, patient was admitted for evaluation, telestroke team completed their workup, cardiology also completed their workup this morning, carotid Doppler were negative, MRA head and neck were normal, MR RI of brain is where the multiple infarcts were noted, anticoagulation deferred to cardiology cardiology recommending Xarelto in place of his Eliquis and maintain aspirin, patient is improved this morning he is having some episodes of confusion but that is not significant from his baseline will be discharged to home in improved condition. Medications used. Follow-up with cardiology and me within the next week Complication during the hospitalization was runs of ventricular tachycardia, likely set up for outpatient cardiac monitoring Time Spent with Patient Time attestation: Total time spent providing and/or coordinating discharge services: Exam Constitutional Vital Signs, click to edit/add: Last Vital Signs Temp 97.5 F L 02/16/25 04:30 Pulse 66 02/16/25 08:00 Resp 18 02/16/25 04:30 BP 174/80 H 02/16/25 04:30 Pulse Ox 94 L 02/16/25 04:30 O2 Del Method Room Air 02/16/25 04:30 Documenting provider has reviewed patient's vital signs: yes Common normals: no apparent distress Respiratory Common normals: normal respiratory effort, no use of accessory muscles and clear to auscultation bilaterally Cardio Common normals: regular rate, regular rhythm, S1 normal heart sound and S2 normal heart sound; murmurs detected Neuro Common normals: oriented x3, CN's II-XII intact bilaterally and moves all extremities DS: Data Data Completed and Pending Labs on day of discharge: Labs from last 24 hours 02/16/25 02/16/25 02/15/25 08:16 05:27 19:35 WBC 8.2 RBC 3.98 L Hgb 11.3 L Hct 35.5 L MCV 89.2 MCH 28.4 MCHC 31.8 RDW 16.9 H Plt Count 227 MPV 11.4 Neut % (Auto) 75.2 H Lymph % (Auto) 9.3 L [place] % (Auto) 12.0 Eos % (Auto) 2.8 Baso % (Auto) 0.5 Neut # (Auto) 6.2 Lymph # (Auto) 0.8 L [place] # (Auto) 1.0 H Eos # (Auto) 0.2 Baso # (Auto) 0.0 Abs Immat Gran (auto) 0.02 Imm/Tot Granulo (auto) 0.2 Sodium 140 Potassium 4.4 Chloride 103 Carbon Dioxide 28.7 Anion Gap 12.7 BUN 36.0 H Creatinine 1.71 H Est GFR ( Amer) 46 L Est GFR (Non-Af Amer) 38 L BUN/Creatinine Ratio 21.1 Glucose 209 H Calcium 9.0 POC Glucose 225 H 190 H 02/15/25 02/15/25 16:16 11:59 WBC RBC Hgb Hct MCV MCH MCHC RDW Plt Count MPV Neut % (Auto) Lymph % (Auto) [place] % (Auto) Eos % (Auto) Baso % (Auto) Neut # (Auto) Lymph # (Auto) [place] # (Auto) Eos # (Auto) Baso # (Auto) Abs Immat Gran (auto) Imm/Tot Granulo (auto) Sodium Potassium Chloride Carbon Dioxide Anion Gap BUN Creatinine Est GFR ( Amer) Est GFR (Non-Af Amer) BUN/Creatinine Ratio Glucose Calcium POC Glucose 119 H 196 H Discharge Plan Discharge Disposition: Home, Self-Care Discharge Medications: New Xarelto 15 mg tablet 15 mg PO DAILY Qty: 30 11RF Rx Instructions: must administer with evening meal Continued pioglitazone [Actos] 45 mg tablet 45 mg PO DAILY alprazolam 0.25 mg tablet 0.25 mg PO BID PRN (Reason: anxiety) duloxetine 20 mg capsule,delayed release(DR/EC) 20 mg PO .QD potassium chloride 20 mEq tablet,ER particles/crystals 40 meq PO .QD clonidine HCl 0.1 mg Tablet 0.2 mg PO Q12H Qty: 120 11RF furosemide [Lasix] 40 mg tablet 80 mg PO BID primidone 50 mg tablet 50 mg PO Q8H cetirizine [Allergy Relief (cetirizine)] 10 mg tablet 10 mg PO BID prednisolone acetate 1 % drops,suspension 1 drp OPHTHALMIC (EYE) TID Patient Comments: RIGHT EYE cholecalciferol (vitamin D3) 25 mcg (1,000 unit) capsule 125 mcg PO DAILY Januvia 100 mg tablet 100 mg PO DAILY diphenhydramine-acetaminophen [Acetaminophen PM] 25-500 mg tablet 1 tab PO .QHS omeprazole 20 mg capsule,delayed release(DR/EC) 20 mg PO BID dicyclomine 10 mg capsule 10 mg PO QID PRN (Reason: abdominal pain) ezetimibe 10 mg tablet 10 mg PO DAILY glimepiride 4 mg tablet 8 mg PO DAILY Rx Instructions: AT NOON labetalol 300 mg tablet 300 mg PO TID tamsulosin 0.4 mg capsule 0.4 mg PO Q24H magnesium 500 mg See Rx Instructions PO BID Rx Instructions: 2 TABLETS orally twice a day; Jardiance 25 mg tablet 25 mg PO DAILY Vitamin B-Complex tablet 1 tab PO .NOON aspirin [Adult Low Dose Aspirin] 81 mg tablet,delayed release (DR/EC) 81 mg PO DAILY Discontinued apixaban 2.5 mg tablet 2.5 mg PO BID Activity: increase activity as tolerated Activity Detail: Use walker/cane when feeling unsteady for safety. Diet: advance to your usual diet Print Language: Bur[place]ian Patient Instructions: Rivaroxaban (By mouth), Supraventricular Tachycardia (DC), Aortic Stenosis (DC), Chronic Kidney Disease (DC), Hypertension (DC), Altered Mental Status (ED), Hyperlipidemia (DC), Stroke (DC), Type 2 Diabetes in the Older Adult (DC) Forms: Portal Instructions Follow Up Appointments: February 22 @ 10:15am with Dr. Sung [phone] Discharge Date/Time: 02/16/25 13:11
[2025-02-16] MEDS: ENSURE HP 237 ML LIQUID PO (08:36)
[2025-02-16] MEDS: INSULIN ASPART 300 UNIT/3 ML PEN SUBQ (08:38)
[2025-02-16] MEDS: GLIMEPIRIDE 2 MG TABLET 8 MG PO (08:39)
[2025-02-16] MEDS: PIOGLITAZONE 15 MG TABLET 45 MG PO (08:39)
[2025-02-16] MEDS: ASPIRIN 81 MG TABLET.DR PO (08:40)
[2025-02-16] MEDS: DULOXETINE HCL 20 MG CAPSULE.DR PO (08:40)
[2025-02-16] MEDS: FUROSEMIDE 40 MG TABLET 80 MG PO (08:40)
[2025-02-16] MEDS: SITAGLIPTIN PHOSPHATE 50 MG TABLET 100 MG PO (08:40)
[2025-02-16] MEDS: TAMSULOSIN HCL 0.4 MG CAPSULE PO (08:40)
[2025-02-16] MEDS: PANTOPRAZOLE SODIUM 40 MG TABLET.DR PO (08:40)
[2025-02-16] MEDS: CLONIDINE HCL 0.1 MG TABLET 0.2 MG PO (08:40)
[2025-02-16] MEDS: EZETIMIBE 10 MG TABLET PO (08:40)
[2025-02-16] MEDS: CLOPIDOGREL BISULFATE 75 MG TABLET PO (08:40)
[2025-02-16] MEDS: MAGNESIUM OXIDE 400 MG TABLET PO (08:40)
[2025-02-16] MEDS: CANAGLIFLOZIN 100 MG TABLET PO (08:40)
[2025-02-16] MEDS: PRIMIDONE 50 MG TABLET PO (08:41)
[2025-02-16 11:06] LABS: Glucometer 121 mg/dL (74-106)
--- NOTE | 2025-02-20 14:44 | CM.DCFOLLOWU ---
Person spoke with:patient How are you feeling?well How is your pain?none Did you understand your discharge instructions?yes Do you have any questions about your discharge instructions?no Were you given any prescriptions at discharge?yes Were you able to get your prescriptions filled? yes Do you understand how to take your medications as ordered?yes Do you have any questions about your follow up appointment and do you plan to keep your follow up appointment? no questions. follow up 02/22 Is there anything else that you would like to discuss?no Questions/Comments/Concerns/Other:no
== END 2025-02-16 13:11 | disposition home or self-care (01) | DRG 64 ==
LOC: ER 12:30 → MS 14:00
PROVIDERS: Admitting Provider Family Medicine; Emergency Provider Emergency Medicine; PCP Family Medicine; Visit Provider Family Medicine
DX: I63.9 Cerebral infarction, unspecified (principal); I50.31 Acute diastolic (congestive) heart failure; I13.0 Hypertensive heart and chronic kidney disease with heart failure and stage 1 through stage 4 chronic kidney disease, or unspecified chronic kidney disease; I31.39 Other pericardial effusion (noninflammatory); I47.20 Ventricular tachycardia, unspecified; N13.8 Other obstructive and reflux uropathy; I48.19 Other persistent atrial fibrillation; N18.4 Chronic kidney disease, stage 4 (severe); R41.82 Altered mental status, unspecified; I67.82 Cerebral ischemia; E11.65 Type 2 diabetes mellitus with hyperglycemia; D64.9 Anemia, unspecified; Z79.01 Long term (current) use of anticoagulants; Z79.82 Long term (current) use of aspirin; R25.1 Tremor, unspecified; N40.1 Benign prostatic hyperplasia with lower urinary tract symptoms; K21.9 Gastro-esophageal reflux disease without esophagitis; Z87.891 Personal history of nicotine dependence; I48.91 Unspecified atrial fibrillation; Z90.49 Acquired absence of other specified parts of digestive tract; I35.0 Nonrheumatic aortic (valve) stenosis; E78.5 Hyperlipidemia, unspecified; I25.10 Atherosclerotic heart disease of native coronary artery without angina pectoris; I27.20 Pulmonary hypertension, unspecified; E11.22 Type 2 diabetes mellitus with diabetic chronic kidney disease; E11.42 Type 2 diabetes mellitus with diabetic polyneuropathy; I08.3 Combined rheumatic disorders of mitral, aortic and tricuspid valves
CPT/HCPCS: 36415; 70544; 70547; 70551; 80048; 80053; 81003; 82948; 83036; 83721; 83735; 83880; 84484; 85025; 85610; 93005; 93306; 93880; 94667; 94668; 94761; 97161; 97165; 99285

== ENCOUNTER 2025-03-08 09:39 | Emergency (ER) | payer MEDICARE, SELFPAY ==
[2025-03-08 09:43] VITALS: BP 149/76; PULSE 77; TEMP 36.9; O2SAT 94; BMI 24.7
[2025-03-08 09:44] VITALS: O2SAT 96
--- NOTE | 2025-03-08 09:51 | ECG_ITS ---
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 Measurements Intervals Amo Rate: 70 P: -30232 NC: -72229 QRS: 48 QRSD: 100 T: 26 QT: 414 QTc: 435 Interpretive Statements 58995 Atrial fibrillation with aberrant conduction, or ventricular premature complexes 3113 Cannot rule out anterior myocardial infarction, probably old [address] depression, probably digitalis effect 9150 abnormal ECG Compared to ECG 02/14/2025 10:08:55 Ventricular premature complex(es) now present Aberrant conduction of supraventricular beat(s) now present Electronically Signed On 03-08-2025 20:43:48 EDT by CLARIBEL PUGA M.D.
[2025-03-08 09:54] VITALS: PULSE 70; O2SAT 100
[2025-03-08 09:58] LABS: Basophils Percent Auto 0.5 % (0.2-2.0); Eosinophils Absolute Auto 0.3 10^3/uL (0.0-0.7); Eosinophils Percent Auto 3.3 % (0.9-7.0); Hematocrit 33.4 % (42.0-54.0); Hemoglobin 10.4 g/dL (14.0-18.0); Immature Granulocytes Abs Auto 0.01 10^3/uL (0.00-0.03); Immature Granulocytes Pct Auto 0.1 % (0.0-0.5); Lymphocytes Absolute Auto 0.8 10^3/uL (1.2-3.8); Lymphocytes Percent Auto 9.7 % (20.5-60.0); Mean Corpuscular HGB Conc 31.1 g/dL (29.9-35.2); Mean Corpuscular Hemoglobin 27.7 pg (25.9-34.0); Mean Corpuscular Volume 89.1 fL (80.0-94.0); Mean Platelet Volume 11.5 fL (9.5-13.5); Monocytes Absolute Auto 0.8 10^3/uL (0.3-0.8); Monocytes Percent Auto 9.6 % (1.7-12.0); Neutrophils Percent Auto 76.8 % (43.0-75.0); Platelet Count 255 10^3/uL (150-450); Red Blood Count 3.75 10^6/uL (4.70-6.10); Red Cell Distribution Width 17.9 % (11.0-15.0); White Blood Count 7.8 10^3/uL (4.0-11.0)
[2025-03-08 10:00] VITALS: PULSE 78; O2SAT 94
--- NOTE | 2025-03-08 10:07 | ED_ITS ---
HPI HPI - General Adult General Chief complaint: Chest Pain Stated complaint: CHEST PAIN Time Seen by Provider: 03/08/25 09:54 Source: patient Mode of arrival: ambulance Limitations: no limitations History of Present Illness HPI narrative: 85-year-old male presents because he had 5 seconds of chest pain. He was driving in the car when this occurred. 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 After he got there he told them that he had chest pain and a squad came and picked him up. The pain lasted for 5 seconds and has not recurred. He states it felt like an alarm clock was going off in his chest. No syncope or presyncope. No back pain or shortness of breath. He has a history of chronic atrial fibrillation. Related Data Home Medications ?Medication ?Instructions ?Recorded ?Confirmed Vitamin B-Complex 1 tab PO .NOON 05/31/23 03/08/25 aspirin 81 mg tablet,delayed 81 mg PO DAILY 05/31/23 03/08/25 release (Adult Low Dose Aspirin) dicyclomine 10 mg capsule 10 mg PO QID PRN abdominal pain 05/31/23 03/08/25 empagliflozin 25 mg tablet 25 mg PO DAILY 05/31/23 03/08/25 (Jardiance) ezetimibe 10 mg tablet 10 mg PO DAILY 05/31/23 03/08/25 glimepiride 4 mg tablet 8 mg PO DAILY 05/31/23 03/08/25 labetalol 300 mg tablet 300 mg PO TID 05/31/23 03/08/25 magnesium See Rx Instructions PO BID 05/31/23 03/08/25 alprazolam 0.25 mg tablet 0.25 mg PO BID PRN anxiety 08/16/24 03/08/25 pioglitazone 45 mg tablet (Actos) 45 mg PO DAILY 08/16/24 03/08/25 potassium chloride 20 mEq 40 meq PO .QD 08/16/24 03/08/25 tablet,extended release(part/cryst) cetirizine 10 mg tablet (Allergy 10 mg PO BID 02/14/25 03/08/25 Relief (cetirizine)) cholecalciferol (vitamin D3) 25 125 mcg PO DAILY 02/14/25 03/08/25 mcg (1,000 unit) capsule diphenhydramine 25 1 tab PO .QHS 02/14/25 03/08/25 mg-acetaminophen 500 mg tablet (Acetaminophen PM) furosemide 40 mg tablet (Lasix) 80 mg PO BID 02/14/25 03/08/25 omeprazole 20 mg capsule,delayed 20 mg PO BID 02/14/25 03/08/25 release prednisolone acetate 1 % eye 1 drp ophthalmic (eye) TID 02/14/25 03/08/25 drops,suspension primidone 50 mg tablet 50 mg PO Q8H 02/14/25 03/08/25 sitagliptin phosphate 100 mg 100 mg PO DAILY 02/14/25 03/08/25 tablet (Januvia) Previous Rx's ?Medication ?Instructions ?Recorded clonidine HCl 0.1 mg tablet 0.2 mg (2 x 0.1 mg) PO Q12H #120 08/17/24 tabs rivaroxaban 15 mg tablet (Xarelto) 15 mg PO DAILY #30 tabs 02/16/25 Allergies Allergy/AdvReac Type Severity Reaction Status Date / Time nitroglycerin Allergy Intermediate Hypotension Verified 10/28/24 19:28 Iodinated Contrast Media AdvReac Intermediate renal Verified 10/28/24 19:28 problem Opioid HPI Opioid Management Most Recent Opioid Data: Last Pain Scale 0 02/16/25 10:19 02/16/25 Last ORT Total Score 0 02/14/25 14:24 02/14/25 Last ORT Risk Category Low Risk 02/14/25 14:24 02/14/25 Review of Systems ROS Narrative A ten point review of systems is negative except as noted above. [facility] Medical History (Updated 03/08/25 @ 11:28 by Flaco Haynes MD) Type 2 diabetes mellitus ?E11.9 - Type 2 diabetes mellitus without complications (ICD-10) Hyperlipidemia ?E78.5 - Hyperlipidemia, unspecified (ICD-10) Essential hypertension ?I10 - Essential (primary) hypertension (ICD-10) Nonsustained ventricular tachycardia ?I47.29 - Other ventricular tachycardia (ICD-10) (HFpEF) heart failure with preserved ejection fraction ?I50.30 - Unspecified diastolic (congestive) heart failure (ICD-10) Chronic kidney disease ?N18.9 - Chronic kidney disease, unspecified (ICD-10) Pericardial effusion ?I31.39 - Other pericardial effusion (noninflammatory) (ICD-10) Aortic stenosis ?I35.0 - Nonrheumatic aortic (valve) stenosis (ICD-10) CVA (cerebral vascular accident) ?I63.9 - Cerebral infarction, unspecified (ICD-10) Altered mental status ?R41.82 - Altered mental status, unspecified (ICD-10) BPH with obstruction/lower urinary tract symptoms ?N40.1 - Benign prostatic hyperplasia with lower urinary tract symptoms (ICD- 10) ?N13.8 - Other obstructive and reflux uropathy (ICD-10) Clot retention of urine ?R33.8 - Other retention of urine (ICD-10) Hematuria ?R31.9 - Hematuria, unspecified (ICD-10) Acute urinary obstruction ?N13.9 - Obstructive and reflux uropathy, unspecified (ICD-10) Atrial fibrillation ?I48.91 - Unspecified atrial fibrillation (ICD-10) Lethargy ?R53.83 - Other fatigue (ICD-10) Difficulty with speech ?R47.9 - Unspecified speech disturbances (ICD-10) AMS (altered mental status) ?R41.82 - Altered mental status, unspecified (ICD-10) Balanitis ?N48.1 - Balanitis (ICD-10) Pulmonary edema ?J81.1 - Chronic pulmonary edema (ICD-10) Dyspnea ?R06.00 - Dyspnea, unspecified (ICD-10) Congestive heart failure ?I50.9 - Heart failure, unspecified (ICD-10) Heart failure ?I50.9 - Heart failure, unspecified (ICD-10) Neuropathy ?G62.9 - Polyneuropathy, unspecified (ICD-10) Occasional tremors ?R25.1 - Tremor, unspecified (ICD-10) History of diverticulosis ?Z87.19 - Personal history of other diseases of the digestive system (ICD-10) History of sleep apnea ?Z86.69 - Personal history of other diseases of the nervous system and sense organs (ICD-10) Diabetes ?E11.9 - Type 2 diabetes mellitus without complications (ICD-10) History of hypertension ?Z86.79 - Personal history of other diseases of the circulatory system (ICD- 10) History of gastroesophageal reflux (GERD) ?Z87.19 - Personal history of other diseases of the digestive system (ICD-10) History of asthma ?Z87.09 - Personal history of other diseases of the respiratory system (ICD- 10) Surgical History History of cardiac catheterization ?Z98.890 - Other specified postprocedural states (ICD-10) History of cholecystectomy ?Z90.49 - Acquired absence of other specified parts of digestive tract (ICD- 10) Family History Father Family history of myocardial infarction Family history of CHF (congestive heart failure) Family history of hypertension Mother Family history of cancer Grandmother Family history of diabetes mellitus Social History Within the past year, how often did you have a drink containing alcohol: 2-4 times a month Smoking status: Former smoker Non-prescribed substance use: denies use Highest level of school completed/degree received: 9th grade Little interest or pleasure in doing things: not at all Feeling down, depressed, or hopeless: not at all Do you think of yourself as: straight/heterosexual Gender Identity: male Exam Narrative Exam Narrative: Nurses note and vital signs reviewed and patient is not hypoxic. General: The patient appears well and in no apparent distress. Patient is resting comfortably on cart. Skin: Warm, dry, no pallor noted. There is no rash noted. Head: Normocephalic, atraumatic Eye: Normal conjunctiva, no drainage Ears, Nose, Mouth, and Throat: oral mucosa is moist. Nares patent. Cardiovascular: Irregularly irregular and not tachycardia Respiratory: Patient is in no distress, no accessory muscle use, lungs are clear to auscultation, no wheezing, rales or rhonchi Back: non-tender GI: Soft and nontender Musculoskeletal: The patient has no evidence of calf tenderness, no pitting edema, symmetrical pulses noted bilaterally Neurological: A&O, normal speech Psychiatric: Cooperative Constitutional Vital Signs, click to edit/add: Last Vital Signs Temp 98.5 F 03/08/25 09:43 Pulse 65 03/08/25 10:39 Resp 18 03/08/25 10:39 BP 160/69 H 03/08/25 10:39 Pulse Ox 96 03/08/25 10:39 O2 Del Method Room Air 03/08/25 09:54 Course Vital Signs Vital signs: Vital Signs Temperature 98.5 F 03/08/25 09:43 Pulse Rate 77 03/08/25 09:43 Respiratory Rate 18 03/08/25 09:43 Blood Pressure 149/76 H 03/08/25 09:43 Pulse Oximetry 94 L 03/08/25 09:43 Oxygen Delivery Method Room Air 03/08/25 09:43 Temperature 98.5 F 03/08/25 09:43 Pulse Rate 65 03/08/25 10:39 Respiratory Rate 18 03/08/25 10:39 Blood Pressure 160/69 H 03/08/25 10:39 Pulse Oximetry 96 03/08/25 10:39 Oxygen Delivery Method Room Air 03/08/25 09:54 Medical Decision Making MDM Narrative Medical decision making narrative: 2 sets of troponin are negative and he has no symptoms. He had his symptoms for about 5 seconds. The possibility of a rapid heart rate during that time is entertained but cannot be confirmed. 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 Treatment diagnosis and follow-up were discussed with the patient and his family. Differential Diagnosis Differential Diagnosis: Chest pain, myocardial infarction, A-fib with RVR Lab Data Lab results reviewed: Yes I reviewed the patient's lab results Labs: Lab Results 03/08/25 03/08/25 Range/Units 09:48 10:58 WBC 7.8 (4.0-11.0) 10^3/uL RBC 3.75 L (4.70-6.10) 10^6/uL Hgb 10.4 L (14.0-18.0) g/dL Hct 33.4 L (42.0-54.0) % MCV 89.1 (80.0-94.0) fL MCH 27.7 (25.9-34.0) pg MCHC 31.1 (29.9-35.2) g/dL RDW 17.9 H (11.0-15.0) % Plt Count 255 (150-450) 10^3/uL MPV 11.5 (9.5-13.5) fL Neut % (Auto) 76.8 H (43.0-75.0) % Lymph % (Auto) 9.7 L (20.5-60.0) % Schuyler % (Auto) 9.6 (1.7-12.0) % Eos % (Auto) 3.3 (0.9-7.0) % Baso % (Auto) 0.5 (0.2-2.0) % Neut # (Auto) 6.0 (1.4-6.5) 10^3/uL Lymph # (Auto) 0.8 L (1.2-3.8) 10^3/uL Schuyler # (Auto) 0.8 (0.3-0.8) 10^3/uL Eos # (Auto) 0.3 (0.0-0.7) 10^3/uL Baso # (Auto) 0.0 (0.0-0.1) 10^3/uL Abs Immat Gran (auto) 0.01 (0.00-0.03) 10^3/uL Imm/Tot Granulo (auto) 0.1 (0.0-0.5) % Sodium 139 (136-145) mmol/L Potassium 4.6 (3.5-5.1) mmol/L Chloride 102 (98-107) mmol/L Carbon Dioxide 29.4 (21.0-32.0) mmol/L Anion Gap 12.2 BUN 24.0 H (7.0-18.0) mg/dL Creatinine 1.79 H (0.70-1.30) mg/dL Est GFR ( Amer) 44 L (>=60 mL/min/1.73m^2) Est GFR (Non-Af Amer) 36 L (>=60 mL/min/1.73m^2) BUN/Creatinine Ratio 13.4 Glucose 230 H (74-106) mg/dL Calcium 8.9 (8.5-10.1) mg/dL Troponin I High Sens 15.5 13.2 (4.0-76.1) pg/mL NT-Pro-B Natriuret Pep 2783.0 H* (<=1800.0) pg/mL Imaging Data Chest x-ray: Radiologist's impression: Small right pleural effusion ECG Data Attestation: I personally reviewed and interpreted this ECG as follows: (EKG on my interpretation shows atrial fibrillation with a rate of 70 and no acute change) Discharge Plan Discharge Chief Complaint: Chest Pain Clinical Impression: Chest pain Patient Disposition: Home, Self-Care Time of Disposition Decision: 11:28 Condition: Good Mode of Transportation: Private Vehicle Prescriptions / Home Meds: No Action pioglitazone [Actos] 45 mg tablet 45 mg PO DAILY alprazolam 0.25 mg tablet 0.25 mg PO BID PRN (Reason: anxiety) potassium chloride 20 mEq tablet,ER particles/crystals 40 meq PO .QD clonidine HCl 0.1 mg Tablet 0.2 mg PO Q12H Qty: 120 11RF furosemide [Lasix] 40 mg tablet 80 mg PO BID primidone 50 mg tablet 50 mg PO Q8H cetirizine [Allergy Relief (cetirizine)] 10 mg tablet 10 mg PO BID prednisolone acetate 1 % drops,suspension 1 drp OPHTHALMIC (EYE) TID Patient Comments: RIGHT EYE cholecalciferol (vitamin D3) 25 mcg (1,000 unit) capsule 125 mcg PO DAILY Januvia 100 mg tablet 100 mg PO DAILY diphenhydramine-acetaminophen [Acetaminophen PM] 25-500 mg tablet 1 tab PO .QHS omeprazole 20 mg capsule,delayed release(DR/EC) 20 mg PO BID Xarelto 15 mg tablet 15 mg PO DAILY Qty: 30 11RF Rx Instructions: must administer with evening meal dicyclomine 10 mg capsule 10 mg PO QID PRN (Reason: abdominal pain) ezetimibe 10 mg tablet 10 mg PO DAILY glimepiride 4 mg tablet 8 mg PO DAILY Rx Instructions: AT NOON labetalol 300 mg tablet 300 mg PO TID magnesium 500 mg See Rx Instructions PO BID Rx Instructions: 2 TABLETS orally twice a day; Jardiance 25 mg tablet 25 mg PO DAILY Vitamin B-Complex tablet 1 tab PO .NOON aspirin [Adult Low Dose Aspirin] 81 mg tablet,delayed release (DR/EC) 81 mg PO DAILY Print Language: Serbian Instructions: Chest Pain (ED) Referrals: Pj Sung MD [Primary Care Provider] - 1 week
[2025-03-08 10:20] LABS: Anion Gap 12.2; BUN Creatinine Ratio 13.4; Calcium 8.9 mg/dL (8.5-10.1); Carbon Dioxide 29.4 mmol/L (21.0-32.0); Chloride 102 mmol/L (98-107); Estimated GFR (African America 44 (>=60 mL/min/1.73m^2); Estimated GFR (Non-African Ame 36 (>=60 mL/min/1.73m^2); Glucose 230 mg/dL (74-106); Potassium 4.6 mmol/L (3.5-5.1); Sodium 139 mmol/L (136-145); Troponin I High Sensitivity 15.5 pg/mL (4.0-76.1)
[2025-03-08 10:30] VITALS: PULSE 63; O2SAT 95
[2025-03-08 10:39] VITALS: BP 160/69; PULSE 65; O2SAT 96
[2025-03-08 11:23] LABS: Troponin I High Sensitivity 13.2 pg/mL (4.0-76.1)
== END 2025-03-08 11:47 | disposition home or self-care (01) ==
PROVIDERS: Emergency Provider Emergency Medicine; PCP Family Medicine
DX: R07.9 Chest pain, unspecified (principal); I48.20 Chronic atrial fibrillation, unspecified; Z90.49 Acquired absence of other specified parts of digestive tract; Z87.891 Personal history of nicotine dependence; I50.30 Unspecified diastolic (congestive) heart failure; I11.0 Hypertensive heart disease with heart failure
CPT/HCPCS: 36415; 71045; 80048; 83880; 84484; 85025; 93005; 99285

== ENCOUNTER 2025-04-13 07:25 | Outpatient (OUT) | payer MEDICARE, SELFPAY ==
--- OUTSIDE RECORDS SUMMARY | 2025-03-26 05:30 | XMS_ITS ---
Author Organization [facility] in [place] Address [address] [place] [address] Care Team Providers Care Statistical Financial Analyst Name Role Phone Pineda Erik Primary Care Provider REASON FOR VISIT b-12 Encounters Encounter Location Date Provider Diagnosis [facility] [address] [place] [address] 03/26/2025 Erik Sung Vitamin B12 deficien cy E53.8 Assessments Encounter Date Diagnosis (ICD Code) Assessment Notes Treatment Notes Treatment Clinical Notes Section Notes 03/26/2025 Vitamin B12 deficiency (ICD-10 - E53.8) Plan Of Treatment Next Appt Details Provider Name:Erik Sung, 09:30:00 AM, [address] [place], [address], Medications Administered Medication Instructions Date of Administration Dosage Notes Cyanocobalamin 03/26/2025 1 mL Progress Notes * YAN Anson LDOB:[birth year] (85 yo M)Acc No.[id number]:03/26/2025 Progress Note Patient: Anson SANTILLAN Provider: Louise Sung ([facility])MD :1940 A ge:85 Y S ex:Male Date:03/26/2025 Address:[address] [place], [place] [id number] Check In:09:19 AM ESTCheck O ut:09:25 AM EST Subjective: * Chief Complaints: * B -12 * HPI: G eneral: presents to the office for a b12 injection. * Active Problem List I48.91 Atrial fibrillation Modified On:09/09/2023 Status:confirmed E78.5 Hyperlipidemia Modified On:02/24/2023 Status:confirmed I35.1 Aortic regurgitation Modified On:02/24/2023 Status:confirmed J45.909 Asthma Modified On:09/09/2023 Status:confirmed M54.12 Cervical radiculopat hy Modified On:02/24/2023 Status:confirmed I07.1 Tricuspid regurgitat ion Modified On:02/24/2023 Status:confirmed I35.0 Aortic stenosis Modified On:02/24/2023 Status:confirmed R60.9 Edema Modified On:10/08/2023 Status:confirmed F32.9 Depression Modified On:02/24/2023 Status:confirmed G62.9 Peripheral neuropath y Modified On:02/24/2023 Status:confirmed E53.8 Vitamin B12 deficien cy Modified On:02/04/2024 Status:confirmed G47.30 Sleep apnea Modified On:02/24/2023 Status:confirmed 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 Modified On:02/24/2023 Status:confirmed G43.909 Migraine Modified On:02/24/2023 Status:confirmed K27.9 Peptic ulcer Modified On:02/24/2023 Status:confirmed M47.12 Cervical spondylosis with myelopathy Modified On:02/24/2023 Status:confirmed J81.1 Pulmonary edema Modified On:10/11/2023U Status:confirmed K57.92 Diverticulitis Modified On:02/24/2023 Status:confirmed E11.40 Diabetic neuropathy Modified On:06/14/2023 Status:confirmed I50.21 Acute systolic heart failure Modified On:10/11/2023U Status:confirmed N40.0 Benign prostatic hyp erplasia Modified On:02/24/2023 Status:confirmed L30.1 Dyshidrotic eczema Modified On:02/24/2023 Status:confirmed I51.7 Ventricular hypertro phy Modified On:02/24/2023 Status:confirmed H83.09 Labyrinthitis Modified On:02/24/2023 Status:confirmed R16.0 Liver mass Modified On:02/24/2023 Status:confirmed E87.8 Electrolyte imbalanc e Modified On:02/24/2023 Status:confirmed L84 Foot callus Modified On:02/24/2023 Status:confirmed H02.839 Dermatochalasis Modified On:02/24/2023 Status:confirmed I50.31 Acute diastolic hear t failure Modified On:02/24/2023 Status:confirmed 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 Modified On:02/24/2023 Status:confirmed I51.7 Atrial enlargement, left Modified On:02/24/2023 Status:confirmed F41.1 Anxiety neurosis Modified On:02/24/2023 Status:confirmed 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 Modified On:02/24/2023 Status:confirmed I10 Essential Hypertensi on Modified On:09/09/2023 Status:confirmed 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 Modified On:02/24/2023 Status:confirmed Z98.890 History of cardiover roselyn Modified On:02/24/2023 Status:confirmed H35.30 Macular degeneration , bilateral Modified On:02/24/2023 Status:confirmed I82.90 Deep vein thrombosis (DVT) of non-extremity vein, unspecified chronicity Modified On:02/24/2023 Status:confirmed I27.20 Pulmonary hypertensi on Modified On:02/24/2023 Status:confirmed N63.10 Unspecified lump in the right breast, unspecified quadrant Modified On:02/24/2023 Status:confirmed R94.5 Liver function test abnormality Modified On:02/24/2023 Status:confirmed E11.9 Diabetes mellitus Modified On:02/24/2023 Status:confirmed G25.2 Resting tremor Modified On:02/24/2023 Status:confirmed U07.1 COVID-19 Modified On:02/24/2023 Status:confirmed I51.7 Atrial enlargement, right Modified On:02/24/2023 Status:confirmed 374.87 Dermatochalasis of b oth eyelids Modified On:02/24/2023 Status:confirmed 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 Modified On:02/24/2023 Status:confirmed E66.3 Overweight Modified On:02/24/2023 Status:confirmed F41.1 Generalized anxiety disorder Modified On:02/24/2023 Status:confirmed I35.8 Other nonrheumatic a ortic valve disorders Modified On:02/24/2023 Status:confirmed I50.41 Acute combined systo lic (congestive) and diastolic (congestive) heart failure Modified On:02/24/2023 Status:confirmed N18.3 Chronic kidney disea se, stage 3 (moderate) Modified On:02/24/2023 Status:confirmed K63.5 Polyp of colon Modified On:03/05/2023 Status:confirmed S80.829A Blister (nonthermal) , unspecified lower leg, initial encounter Modified On:03/05/2023 Status:confirmed K64.9 Hemorrhoid Modified On:05/28/2023 Status:confirmed I50.31 Acute diastolic (con gestive) heart failure Modified On:06/15/2023 Status:confirmed I35.0 Nonrheumatic aortic (valve) stenosis Modified On:06/15/2023 Status:confirmed R00.1 Bradycardia, unspeci fied Modified On:06/15/2023 Status:confirmed I25.10 Atherosclerotic hear t disease of [place] coronary artery without angina pectoris Modified On:06/15/2023 Status:confirmed N18.30 Chronic kidney disea se, stage 3 unspecified Modified On:06/15/2023 Status:confirmed I48.91 Afib Modified On:06/18/2023 Status:confirmed I21.9 Myocardial infarct Modified On:06/18/2023 Status:confirmed I50.9 CHF (congestive hear t failure) Modified On:06/25/2023 Status:confirmed J20.9 Acute bronchitis Modified On:07/14/2023 Status:confirmed J18.9 Left lower lobe pneu monia Modified On:07/23/2023 Status:confirmed I31.39 Other pericardial ef fusion (noninflammatory) Modified On:09/02/2023 Status:confirmed R06.02 Shortness of breath Modified On:10/28/2023 Status:confirmed T14.8XXA Skin abrasion Modified On:01/24/2024 Status:confirmed R41.82 Altered mental statu s Modified On:08/22/2024 Status:confirmed R41.82 Altered mental state Modified On:08/23/2024 Status:confirmed N48.1 Balanitis Modified On:08/23/2024 Status:confirmed E11.9 Diabetes Modified On:08/23/2024 Status:confirmed I10 BP (high blood press ure) Modified On:08/23/2024 Status:confirmed N13.9 Urinary obstruction Modified On:11/16/2024 Status:confirmed I50.9 Congestive heart gina lure Modified On:11/16/2024 Status:confirmed E11.9 DM2 (diabetes [facility], type 2) Modified On:11/16/2024 Status:confirmed K58.9 IBS (irritable bowel syndrome) Modified On:12/21/2024 Status:confirmed F41.1 MERA (generalized anx iety disorder) Modified On:12/21/2024 Status:confirmed D50.9 Anemia, iron deficie ncy Modified On:12/21/2024 Status:confirmed N18.2 Chronic kidney disea se (CKD), stage 2 (mild) Modified On:12/21/2024U Status:confirmed I63.9 CVA (cerebral vascul ar accident) Modified On:02/22/2025 Status:confirmed * Medical History: * Surgical History: * Hospitalization/Major Diagno stic Procedure: * Medications: Objective: * Vitals: Assessment: * Assessment: 1. V itamin B12 deficiency - E53.8 (Primary) Plan: * Treatment: * Therapeutic Injections: Cyanocobalamin : 1 mL (Route: Intramuscular) given by DHAVAL Lin on right deltoid (Vitamin B12 deficiency) * Procedure Codes: 9 [id number] THERAP.INJ. OF MED. INTRAMUSCULAR OR [id number] VITAMIN B-12 < 1000 MCG * * Sign off status: Completed Visit Status: C HK (Check Out) true * Provider: Louise Sung ([facility])MD Date: 0 03/26/2025 Generated for Nabeel lagunas/Arik/Loisitting on: 04/13/2025 07:27 AM EDT History and Physical Notes * HPI (History of Present Illness) Category Sub-Category Detail Notes Category Not es General presents to the office for a b12 injection
--- OUTSIDE RECORDS SUMMARY | 2025-04-06 06:30 | XMS_ITS ---
Author Organization [facility] in [place] Address [address] [place] [address] Care Team Providers Care Regional Environmental Manager Name Role Phone Erik Sung Primary Care Provider [phone] Allergies Allergen (clinical drug ingredient) Drug/Non Drug Allergy documented on EMR Reaction Allergy Type Onset Date Status simvastatin Simvastatin elevated liver enzymes Drug Allergy Active REASON FOR VISIT Presents to office with for c/o increase sob and BLE edema for the past couple of days Medications Medication SIG (Take, Route, Frequency, Duration) Notes Start Date End Date Status Symbicort 80-4.5 MCG/ACT 2 puffs Inhalat ion Once a day Active Tamsulosin HCl 0.4 MG TAKE 1 CAPSULE BY MOUTH DAILY for 90 Active Aldactone 50 MG 1 tablet Orally Once a day for 4 days 05/28/2023 Active Spiriva Respimat 1.25 MCG/ACT 2 puffs Inhalation Once a day Active Xarelto 15 MG 1 tablet with food Orally Once a day for 30 days Active Pioglitazone HCl 45 MG 1 tablet Orally O nce a day for 90 days Active Primidone 50 MG 1 tablet Orally twic e a day for 90 days Active Omeprazole 20 MG TAKE 2 CAPSULES BY M OUTH DAILY for 90 Active Ondansetron 4 MG 1 tablet on the ue and allow to dissolve Orally Q 6 hours PRN for 3 10/01/2023 Active Metoclopramide HCl 5 MG TAKE 1 TABLET BY MOUTH AT BEDTIME for 90 Active Jardiance 25 MG 1 tablet Orally Once a day Active Klor-Con M20 20 MEQ TAKE 1 TABLET BY DAVID TWICE A DAY for 90 Active metFORMIN HCl 500 MG TAKE 1 TABLET BY MO [facility] EVERY DAY FOR 30 DAYS for 30 Active Labetalol HCl 300 MG 1 tablet Orally TID for 90 days Active Lasix 40 MG 1 tablet Orally bid Active Januvia 100 MG 1 tablet Orally Once a day for 90 days 02/13/2025 Active Ferrous Sulfate 325 (65 Fe) MG 1 tablet Orally Once a day Active Glimepiride 4 MG TAKE 2 TABLETS BY MO [facility] EVERY DAY for 90 days Active Escitalopram Oxalate 5 MG TAKE 1 TABLET BY MOUTH EVERY DAY FOR 30 DAYS for 90 Active Ezetimibe 10 MG TAKE 1 TABLET BY DAVID TH ONCE DAILY for 90 Active Blood Glucose Test Strip Active Diabetic Shoe - - Daily Acti ve Dicyclomine HCl 10 MG 2 capsules Orally Three times a day for 90 days Active Cetirizine HCl 10 MG 1 tablet Orally Twi ce a day for 30 days Active cloNIDine HCl 0.1 MG 2 tablets Orally bi d for 90 days Active ALPRAZolam 0.25 MG 1 tablet F41.9 Orall y Twice a day 08/15/2024 Active Aspirin 81 81 MG 1 tablet Orally Once a day Active Align Prebiotic-Probiotic 5-1.25 MG-GM 1 capsule Orally once daily Active Albuterol Sulfate (2.5 MG/3ML) 0.083% 3 mL as needed Inhalation every 6 hrs Active Social History Tobacco Use: Social History Observation Description Date Details (start date - stop date) Former Smoker NA - NA Tobacco Use/Smoking Question Answer Notes Patient is a former smoker Vital Signs Blood pressure systolic 152 mm Hg 04/06/20 25 Blood pressure diastolic 80 mm Hg 025 Height 70 in 04/06/2025 Weight 186.8 lbs 04/06/2025 BMI 26.8 kg/m2 04/06/2025 Oximetry 90 % 04/06/2025 Encounters Encounter Location Date Provider Diagnosis [facility] [address] [place] [address] 04/06/2025 Erik Homohan Atrial fibrillation I48.91 and CHF (congestive heart failure) I50.9 Assessments Encounter Date Diagnosis (ICD Code) Assessment Notes Treatment Notes Treatment Clinical Notes Section Notes 04/06/2025 Atrial fibrillation (ICD-10 - I48.91) 04/06/2025 CHF (congestive heart failure) (ICD-10 - I50.9) Plan Of Treatment Medication Medication Name Sig Start Date Stop Date Notes Aldactone 50 MG 1 tablet Orally Once a day for 4 days 05/15 Next Appt Details Provider Name:Erik Sung, 09:30:00 AM, [address] [facility] [place] [place], [address], Progress Notes * Anson HEREDIA LDOB:[birth year] (85 yo M)Acc No.[id number]:04/06/2025 Progress Note Patient: Anson SANTILLAN Provider: Louise Sung ([facility])MD :1940 A ge:85 Y S ex:Male Date:04/06/2025 [address] [facility] [id number] Check In:10:16 AM ESTCheck O ut:11:04 AM EST Subjective: * Chief Complaints: * P resents to office with for c/o increase sob and BLE edema for the past couple of days * HPI: C ongestive Heart Failure: Patient presents for follow-up of congestive heart failure _ . The patient's last follow-up was _ . The patient complains of shortness of breath _ . The patient reports lower extremity swelling _ . The patient notes chest pain _ . Another symptom patient reports is lightheadedness/dizziness? . Other symptoms include _ . Patient denies _ . * ROS: G eneral/Constitutional: Lightheadedness d enies. C hange in appetite d enies. W eight Change d enies. C ardiovascular: Irregular heartbeat d enies. S welling in hands/feet?denies. R espiratory: Shortness of breath d enies. S hortness of breath at rest d enies. W heezing d enies. N eurologic: Dizziness d enies. F ainting d enies. H eadache?denies. * Active Problem List I48.91 Atrial fibrillation [...] Status:confirmed E53.8 Vitamin B12 deficien cy Modified On:02/04/2024U Status:confirmed G47.30 Sleep apnea Modified On:02/24/2023 Status:confirmed [...] Status:confirmed N40.0 Benign prostatic hyp erplasia Modified On:02/24/2023U Status:confirmed L30.1 Dyshidrotic eczema Modified On:02/24/2023U Status:confirmed I51.7 Ventricular hypertro phy Modified On:02/24/2023 [...] Status:confirmed I25.10 Atherosclerotic hear t disease of [place] coronary artery without angina pectoris Modified On:06/15/2023 [...] lure Modified On:11/16/2024 Status:confirmed E11.9 DM2 (diabetes [facility] [place], type 2) Modified On:11/16/2024 Status:confirmed K58.9 IBS (irritable bowel syndrome) Modified On:12/21/2024 Status:confirmed F41.1 MERA (generalized anx iety disorder) Modified On:12/21/2024 Status:confirmed D50.9 Anemia, iron deficie ncy Modified On:12/21/2024 Status:confirmed N18.2 Chronic kidney disea se (CKD), stage 2 (mild) Modified On:12/21/2024 Status:confirmed I63.9 CVA (cerebral vascul ar accident) Modified On:02/22/2025 Status:confirmed * Medical History: * Surgical History: C HOLECYSTECTOMY Back surgery TONSILLECTOMY,UNDER 12YRS Hiatal Hernia * Hospitalization/Major Diagno stic Procedure: S OB, Swelling in legs 05/2023Weakness, Slurred Speech 08/2024Mini Stroke 2023 * Family History: F ather: . M other: . B rother(s): alive. S ister(s): alive. S on(s): alive. 2 brother(s) , 1 sister(s) . 1 son(s) , 2 daughter(s) . . * Social History: T obacco Use: T obacco Use/Smoking P atient is a f ormer smoker * Medications: T akingAlbuterol Sulfate (2.5 MG/3ML) 0.083% Nebulization Solution 3 mL as needed Inhalation every 6 hrs Aldactone(Spironolactone) 50 MG Tablet 1 tablet Orally Once a day Align Prebiotic-Probiotic(Bacillus Coagulans-Inulin) 5-1.25 MG-GM Tablet Chewable 1 capsule Orally once daily ALPRAZolam 0.25 MG Tablet 1 tablet F41.9 Orally Twice a day Aspirin 81(Aspirin) 81 MG Tablet Chewable 1 tablet Orally Once a day Blood Glucose Test Strip Cetirizine HCl 10 MG Tablet 1 tablet Orally Twice a day cloNIDine HCl 0.1 MG Tablet 2 tablets Orally bid Diabetic Shoe - As Ordered - Daily Dicyclomine HCl 10 MG Capsule 2 capsules Orally Three times a day Escitalopram Oxalate 5 MG Tablet TAKE 1 TABLET BY MOUTH EVERY DAY FOR 30 DAYS Ezetimibe 10 MG Tablet TAKE 1 TABLET BY MOUTH ONCE DAILY Ferrous Sulfate 325 (65 Fe) MG Tablet 1 tablet Orally Once a day Glimepiride 4 MG Tablet TAKE 2 TABLETS BY MOUTH EVERY DAY Januvia(SITagliptin Phosphate) 100 MG Tablet 1 tablet Orally Once a day Jardiance(Empagliflozin) 25 MG Tablet 1 tablet Orally Once a day Klor-Con M20(Potassium Chloride Radha ER) 20 MEQ Tablet Extended Release TAKE 1 TABLET BY MOUTH TWICE A DAY Labetalol HCl 300 MG Tablet 1 tablet Orally TID Lasix(Furosemide) 40 MG Tablet 1 tablet Orally bid metFORMIN HCl 500 MG Tablet TAKE 1 TABLET BY MOUTH EVERY DAY FOR 30 DAYS Metoclopramide HCl 5 MG Tablet TAKE 1 TABLET BY MOUTH AT BEDTIME Omeprazole 20 MG Capsule Delayed Release TAKE 2 CAPSULES BY MOUTH DAILY Ondansetron 4 MG Tablet Disintegrating 1 tablet on the tongue and allow to dissolve Orally Q 6 hours PRN Pioglitazone HCl 45 MG Tablet 1 tablet Orally Once a day Primidone 50 MG Tablet 1 tablet Orally twice a day Spiriva Respimat(Tiotropium [place] Monohydrate) 1.25 MCG/ACT Aerosol Solution 2 puffs Inhalation Once a day Symbicort(Budesonide-Formoterol Fumarate) 80-4.5 MCG/ACT Aerosol 2 puffs Inhalation Once a day Tamsulosin HCl 0.4 MG Capsule TAKE 1 CAPSULE BY MOUTH DAILY Xarelto(Rivaroxaban) 15 MG Tablet 1 tablet with food Orally Once a day Medication List reviewed and reconciled with the patientTaking Albuterol Sulfate (2.5 MG/3ML) 0.083% Nebulization Solution 3 mL as needed Inhalation every 6 hrs Taking Aldactone(Spironolactone) 50 MG Tablet 1 tablet Orally Once a day Taking Align Prebiotic-Probiotic(Bacillus Coagulans-Inulin) 5-1.25 MG-GM Tablet Chewable 1 capsule Orally once daily Taking ALPRAZolam 0.25 MG Tablet 1 tablet F41.9 Orally Twice a day Taking Aspirin 81(Aspirin) 81 MG Tablet Chewable 1 tablet Orally Once a day Taking Blood Glucose Test Strip Taking Cetirizine HCl 10 MG Tablet 1 tablet Orally Twice a day Taking cloNIDine HCl 0.1 MG Tablet 2 tablets Orally bid Taking Diabetic Shoe - As Ordered - Daily Taking Dicyclomine HCl 10 MG Capsule 2 capsules Orally Three times a day Taking Escitalopram Oxalate 5 MG Tablet TAKE 1 TABLET BY MOUTH EVERY DAY FOR 30 DAYS Taking Ezetimibe 10 MG Tablet TAKE 1 TABLET BY MOUTH ONCE DAILY Taking Ferrous Sulfate 325 (65 Fe) MG Tablet 1 tablet Orally Once a day Taking Glimepiride 4 MG Tablet TAKE 2 TABLETS BY MOUTH EVERY DAY Taking Januvia(SITagliptin Phosphate) 100 MG Tablet 1 tablet Orally Once a day Taking Jardiance(Empagliflozin) 25 MG Tablet 1 tablet Orally Once a day Taking Klor-Con M20(Potassium Chloride Radha ER) 20 MEQ Tablet Extended Release TAKE 1 TABLET BY MOUTH TWICE A DAY Taking Labetalol HCl 300 MG Tablet 1 tablet Orally TID Taking Lasix(Furosemide) 40 MG Tablet 1 tablet Orally bid Taking metFORMIN HCl 500 MG Tablet TAKE 1 TABLET BY MOUTH EVERY DAY FOR 30 DAYS Taking Metoclopramide HCl 5 MG Tablet TAKE 1 TABLET BY MOUTH AT BEDTIME Taking Omeprazole 20 MG Capsule Delayed Release TAKE 2 CAPSULES BY MOUTH DAILY Taking Ondansetron 4 MG Tablet Disintegrating 1 tablet on the tongue and allow to dissolve Orally Q 6 hours PRN Taking Pioglitazone HCl 45 MG Tablet 1 tablet Orally Once a day Taking Primidone 50 MG Tablet 1 tablet Orally twice a day Taking Spiriva Respimat(Tiotropium [place] Monohydrate) 1.25 MCG/ACT Aerosol Solution 2 puffs Inhalation Once a day Taking Symbicort(Budesonide-Formoterol Fumarate) 80-4.5 MCG/ACT Aerosol 2 puffs Inhalation Once a day Taking Tamsulosin HCl 0.4 MG Capsule TAKE 1 CAPSULE BY MOUTH DAILY Taking Xarelto(Rivaroxaban) 15 MG Tablet 1 tablet with food Orally Once a day Medication List reviewed and reconciled with the patient * Allergies: S imvastatin: elevated liver enzymes - Criticality Highno[Allergies Verified] Objective: * Vitals: W t:186.8lbs, Ht: 70 in, BP:152/80mm Hg, BMI:26.8Index, Oxygen sat %:90%, Ht-cm: 177.8 cm, Wt-k.73 kg. * Examination: G eneral Examination: GENERAL APPEARANCE: in no acute distress, well developed, well nourished. LUNGS: clear to auscultation bilaterally. CARDIO: S1, S2 normal, no murmurs, rubs, gallops. EXTREMITIES: no clubbing, cyanosis, or edema. NEUROLOGIC: alert, oriented to time, place, & person.? Assessment: * Assessment: 1. A trial fibrillation - I48.91 (Primary) 2 . C HF (congestive heart failure) - I50.9 Plan: * Treatment: * Procedure Codes: * Preventive Medicine: Screenings/Counseling: B MO ACTION PLAN Above Normal BMI Follow-up D ietary management education, guidance, and counseling See treatment section of progress note for complete details of management plan. F ALL RISK SCREENING Fall Risk Assessment: N o falls in the past year * * Sign off status: Completed Visit Status: C HK (Check Out) true * Provider: Louise Sung ([facility])MD Date: 0 04/06/2025 Generated for Printi ng/Falandong/eTransmitting on: 0 04/13/2025 07:27 AM EDT History and Physical Notes * HPI (History of Present Illness) Category Sub-Category Detail Notes Category Not es Congestive Heart Failure Patient present s for follow-up of congestive heart failure The patient's last follow-up was The patient complains of shortness of br eath The patient reports lower extremity swel ling The patient notes chest pain Another symptom patient reports is light headedness/dizziness Other symptoms include Patient denies Examination Category Sub-Category Detail Notes Category Not es General Examination GENERAL APPEARANCE: in no ac [place] distress, well developed, well nourished CARDIO: S1, S2 normal, no mu rmurs, rubs, gallops LUNGS: clear to auscultatio n bilaterally NEUROLOGIC: alert, oriented to t izaiah, place, & person EXTREMITIES: no clubbing, cyanosi s, or edema
--- OUTSIDE RECORDS SUMMARY | 2025-04-10 04:18 | XMS_ITS ---
Author Organization The [facility] in [place] Address [address] [place] [address] Care Team Providers Care Spring Upholsterer Name Role Phone Erik Sung Primary Care Provider [phone] REASON FOR VISIT update Medications Medication SIG (Take, Route, Fr equency, Duration) Notes Start Date End Date Status Aldactone 25 MG 1 tablet Orally Once a day for 30 days 05/28/2023 Active Encounters Encounter Location Date Provider Diagnosis [facility] [address] [place] [address] 04/10/2025 Erik Sung Atrial fibrillation I48.91 Assessments Encounter Date Diagnosis (ICD Code) Assessment Notes Treatment Notes Treatment Clinical Notes Section Notes 04/10/2025 Atrial fibrillation (ICD-10 - I48.91) Plan Of Treatment Medication Medication Name Sig Start Date Stop Date Notes Aldactone 25 MG 1 tablet Orally Once a day for 30 days Pending Test Test Name Order Date Basic Metabolic Panel (8) 04/10/2025 BNP 04/10/2025 Next Appt Details Provider Name:Erik Sung, 09:30:00 AM, [address] [place], [address], Progress Notes * Anson HEREDIA LDOB:[birth year] (85 yo M)Acc No.[id number]:04/10/2025 Patient: Mesha Anson ROY :1940 A ge:85 Y S ex:Male Address:[address] [place] [address], [address] * Refills Refill Aldactone Tablet, 25 MG, Orally, 30 Tablet, 1 tablet, Once a day, 30 days, Refills=11 Subjective: * Chief Complaints: * U pdate * Medical History: * Surgical History: * Hospitalization/Major Diagno stic Procedure: * Medications: Objective: * Vitals: * Physical Examination: Assessment: * Assessment: 1. A trial fibrillation - I48.91 Plan: * Treatment: * Procedure Codes: * true * Date: Generated for Nabeel lagunas/Arik/Estefanysmitting on: 0 04/13/2025 07:28 AM EDT
--- OUTSIDE RECORDS SUMMARY | 2025-04-10 12:45 | XMS_ITS | Encounter Summary ---
Author Organization [facility] Address [address] [place] [address] Care Team Providers Care Digital Production Operator Name Role Phone Pj Sung MD Primary Care Provider [phone] Reason for Visit * Reason Comments Tremors Encounter Details Date Type Department Care Team ([facility] Contact Info) Description 04/10/2025 12:45 PM EDT Office Visit [facility] [address] [facility] [address] [place] [address] Leinn Montoya MD [address] [facility] [address] [place] [address] Benign essential tremor (Primary Dx); Neurogenic pain; Sequelae of cerebral infarction; Cervical paraspinal muscle spasm; JOSIAH (obstructive sleep apnea); Carotid stenosis, bilateral Social History Tobacco Use Types Packs/Day Years Used Date Smoking Tobacco: Former Cigarettes Smokeless Tobacco: Never Alcohol Use Standard Drinks/Week Comments Never 0 (1 standard drink = 0.6 oz pur e alcohol) caffeine 1-2 cups/day Sex and Gender Information Value Date Recorded Sex Assigned at Not on file Legal Sex Male 6:35 PM EDT Gender Identity Not on file Sexual Orientation Not on file documented as of this encounter Last Filed Vital Signs Vital Sign Reading Time Taken Comments Blood Pressure - - Pulse - - Temperature - - Respiratory Rate - - Oxygen Saturation - - Inhaled Oxygen Concentration - - Weight 83.5 kg (184 lb) 04/10/2025 12:58 PM EDT Height 182.9 cm (6') 04/10/2025 12:58 PM EDT Body Mass Index 24.95 04/10/2025 12:58 PM EDT documented in this encounter Progress Notes * Lenin Montoya MD - 04/10/2025 12:45 PM EDTAssociated Problem(s): Benign essential tremor (Continue current regimen.) * Lenin Montoya MD - 04/10/2025 12:45 PM EDTAssociated Problem(s): Neurogenic pain (Continue current regimen.) Pt may call for incr to 40. * Lenin Montoya MD - 04/10/2025 12:45 PM EDTAssociated Problem(s): Cervical paraspinal muscle spasm (Continue home PT.) * Leinn Montoya MD - 04/10/2025 12:45 PM EDTAssociated Problem(s): JOSIAH (obstructive sleep apnea) Still have only PAPT. Get original PSG.0 * Lenin Montoya MD - 04/10/2025 12:45 PM EDTAssociated Problem(s): Sequelae of cerebral infarction (Continue ASA.) Get MR brain report -- not received. (We have only MRA) * Lenin Montoya MD - 04/10/2025 12:45 PM EDTAssociated Problem(s): Carotid stenosis, bilateral Plan redo US carotids 2026. * Lenin Montoya MD - 04/10/2025 12:45 PM EDT Images from the original note were not included. Outpatient Progress Note Prev Appt: Visit date not found Chief Complaint Patient presents with Tremors Appointment Note -- 3 Month Assessment and Plan - Assessment & Plan Benign essential tremor (Continue current regimen.) Neurogenic pain (Continue current regimen.) Pt may call for incr to 40. Sequelae of cerebral infarction (Continue ASA.) Get MR brain report -- not received. (We have only MRA) Cervical paraspinal muscle spasm (Continue home PT.) JOSIAH (obstructive sleep apnea) Still have only PAPT. Get original PSG.0 Carotid stenosis, bilateral Plan redo US carotids 2026. No orders of the defined types were placed in this encounter. Follow-Up - Follow up in about 6 months (around 10/11/2025), or SPREADER BOX OPERATOR. History of Present Illness, Associated Treatments and Results - Dx (JOSIAH) Tx BiPAP @ 31/10 AEs [facility]x [facility] Failed Semeiology Circadian Noct oxim PSG _ (Parthenon) - _ PAPT (Alberto) - AHI=8.1 @ 31/10 (max pressure) MSLT MWT Imaging Testing Surgery Dx TREMOR Tx PRM 50/50/100 (+ labetalol --card) AEs Hx Sx reasonably controlled on higher dose. Onset Semeiology Tremor R>>L hand, often at rest. Handwriting messy, smaller. Imaging Testing Surgery Failed Sinemet 25/100 bid (ineff) Dx PN . PAIN . (B12) . B6 Tx dulox 20 B complex (for B6) (B12 inj --PCP) AEs Hx Sx now controlled. Onset Semeiology Numbness constantly. Burning when walking, incr'd when GBP stopped. Imaging Testing Labs - 576/16/475/16, was 285/16/503/14.1 ... B6=29, was 6.5L Surgery Failed GBP 1800 (somn) Dx MYOFASCIITIS Tx Home PT AEs Hx No complaints. Onset Semeiology Imaging Testing Surgery Failed Dx UBOs Tx ASA AEs Hx Recent adm Parthenon for confusion. Now baseline. Images rev'd. No clear cognitive decline. Denies forgetting names, leaving tools/stove on, getting lost, etc. Onset Semeiology Imaging MR brain (02/2025, Alberto) - rev'd with pt - no report sent - on my review, atrophy mod-sev, 8-10 UBOs, most tiny, 2 mod incl R fro & R splenium CC MRA head (02/2025, Alberto) - no stenoses MRA neck (02/2025, Alberto) - no stenoses, dom R vert US carotids (02/2025, Parthenon) - < 50% B by velocity, but mod plaque poss causing stenosis Testing Surgery Failed Physical Exam - General [...] unchanged: AJ 0B, orig: ___ Coord - Tremor L>R with intention, unchanged: Tremor hand dane end of travel ... Handwriting messy but not small, orig: initially R>>L hand Gait - ___, unchanged: Somewhat wide ... Short steps, hunched, not typically parkinsonian, no hand tremor ... A bit atactic on turn, orig: ___ Vestib - ___, unchanged: ___, orig: ___ MSK - Spasm - SCMs Tr C mild, unchanged: ___, orig: ___ Other - ___, unchanged: ___, orig: ___ Vital Signs - Visit Vitals Ht 6' Wt 184 lb BMI 24.95 kg/m?? Smoking Status Former BSA 2.06 m?? Review of Systems - . Const: Denies [...] Neg Hx Outpatient Encounter Medications as of 04/10/2025 Medication Sig Dispense Refill rivaroxaban (Xarelto) 15 MG tablet Take 15 mg by mouth acyclovir (Zovirax) 400 MG tablet Take 1 tablet twice a day by oral route for 30 days. alogliptin (Nesina) 25 MG tablet Take 1 tablet by mouth in the morning. ALPRAZolam (Xanax) 0.25 MG tablet every 12 (twelve) hours. aspirin [...] 1 capsule every day by oral route. DULoxetine (Cymbalta) [address] capsule Take 1 capsule (20 mg) by mouth at bedtime 90 capsule 1 empagliflozin (Jardiance) 25 MG Take 1 tablet [...] oral route for 90 days. pioglitazone (Actos) 45 MG tablet TAKE 1 TABLET BY MOUTH EVERY DAY for 90 prednisoLONE acetate (Pred-Forte) 1 % ophthalmic suspension INSTILL 1 DROP INTO RIGHT EYE 3 TIMES ADAY DIRECTED primidone (Mysoline) 250 MG tablet 1/2 tab BID 90 tablet 1 tamsulosin (Flomax) 0.4 MG 24 hr capsule Take 1 capsule every day by oral route for 90 days. [DISCONTINUED] apixaban (Eliquis) 2.5 MG tablet every 12 (twelve) hours. [DISCONTINUED] pioglitazone (Actos) 30 MG tablet TAKE 1 TABLET BY MOUTH EVERY DAY Oral for 90 No facility-administered encounter medications on file as of 04/10/2025. Lenin Montoya M.D. [facility] ? [address] ? [place], [place] [address] ? ? fax Neurology ? Clinical Neurophysiology ? Epilepsy ? Sleep Disorders ? Clinical Informatics documented in this encounter Plan of Treatment Upcoming Encounters Date Type Department Care Team (Late st Contact Info) Description 06/21/2025 10:40 AM EDT Office Visit [facility] [address] [facility] [address] [place] [address] Blaise Dc DPM [address] [facility] [address] [place] [address] 09/11/2025 1:15 PM EDT Office Visit [facility] [address] [place] [address] Mercedes Joy MD [address] [place] [address] 10/09/2025 1:45 PM EST Office Visit [facility] [address] [place] [address] Lenin Montoya MD [address] [facility] [address] [place], [place] [id number] documented as of this encounter Visit Diagnoses Diagnosis Benign essential tremor- Primary Essential and other specified forms of tremor Neurogenic pain 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 Cervical paraspinal muscle spasm Spasm of muscle JOSIAH (obstructive sleep apnea) Obstructive sleep apnea (adult) (pediatric) Carotid stenosis, bilateral Occlusion and stenosis of carotid artery without mention of cerebral infarction documented in this encounter Care Teams Digital Production Operator Relationship Specialty Start Date End Date Pj Sung MD [address] [place] [address] PCP - General Family Medicine 12/02/23 documented as of this encounter
--- OUTSIDE RECORDS SUMMARY | 2025-04-12 11:20 | XMS_ITS | Encounter Summary ---
Author Organization [facility] Address [address] [place] [address] Care Team Providers Care Discharge Planner Name Role Phone Pj Sung MD Primary Care Provider [phone] Reason for Visit * Reason Comments DM Foot Care Dm nail care Encounter Details Date Type Department Care Team ([facility] Contact Info) Description 04/12/2025 11:20 AM EDT Office Visit [facility] [address] [facility] [address] [place] [address] Blaise Dc, DPJim [address] [facility] [place] [address] Verruca plantaris (Primary Dx); Foot pain, right; Diabetes mellitus due to underlying condition with diabetic polyneuropathy, unspecified whether cafeteria server insulin use ([facility]); Pain due to onychomycosis of toenails of both feet Social History Tobacco Use Types Packs/Day Years Used Date Smoking Tobacco: Former Cigarettes Smokeless Tobacco: Never Tobacco Cessation:Counseling Given: Yes Alcohol Use Standard Drinks/Week Comments Never 0 [...] - - Temperature - - Respiratory Rate 16 04/12/2025 11:05 AM EDT Oxygen Saturation - - Inhaled Oxygen Concentration - - Weight 83.5 kg (184 lb) 04/12/2025 11:05 AM EDT Height 182.9 cm (6') 04/12/2025 11:05 AM EDT Body Mass Index 24.95 04/12/2025 11:05 AM EDT documented in this encounter Progress Notes * Blaise Dc, DPM - 04/12/2025 11:20 AM EDT Patient: Anson Beth : 1940 PCP: Pj Sung MD SUBJECTIVE Anson Hamilton Rariley 85 y.o. presents today for follow up of skin lesion/neoplasm of unknown origin to the right foot Pt states that previous treatment of acid tx with some improvement Pt rates pain the pain on a 1-10 scale an intensity of 3 Pt presents today for followup. Patient is DM2 Patient presents today with a CC of elongated, thick nails. Pt states nails have been elongated and thick for many years and cause pain with ambulation in shoegear. Pt has tried previous treatment with minimal relief. Pt presents today for nail care and treatment. He is dm2 Patient last seen for possible cardiac issue with sent to ER prior to appointment Allergies: Allergies Allergen Reactions Iodinated Contrast Media [...] Partner Violence: Unknown (01/06/2024) Received from [facility] Safety & Environment Fear of Current or [...] and negative PT pedal pulses NEURO: 5.07 [place]on monofilament test diminished to digits and forefoot bilaterally 125Hz tuning fork diminished to 1st MPJ bilaterally ORTHO: Positive pain on palpation to nails 1 through 10 Minimal pain on palpation of right foot lesion ASSESSMENT 1. Verruca plantaris 2. Foot pain, right 3. Diabetes mellitus due to underlying condition with diabetic polyneuropathy, unspecified whether cafeteria server insulin use ([facility]) 4. Pain due to onychomycosis of toenails [...] feet and discussed proper shoe gear Blaise Dc DPM documented in this encounter Plan of Treatment Upcoming Encounters Date Type Department Care Team (Late st Contact Info) Description 06/21/2025 10:40 AM EDT Office Visit [facility] [address] [facility] [address] [place] [address] Blaise Dc DPM [address] [facility] [place] [address] 09/11/2025 1:15 PM EDT Office Visit [facility] [address] [place] [address] Mercedes Joy MD [address] [place] [address] 10/09/2025 1:45 PM EST Office Visit [facility] [address] [place] [address] Lenin Montoya MD 8691 [facility] 111 [place], [place] [id number] documented as of this encounter Visit Diagnoses Diagnosis Verruca plantaris- Primary Plantar wart Foot pain, right Pain in soft tissues of limb Diabetes mellitus due to underlying condition with diabetic polyneuropathy, unspecified whether senior living insulin use ([facility]) Pain due to onychomycosis of toenails of both feet documented in this encounter Care Teams Discharge Planner Relationship Specialty Start Date End Date Pj Sung MD [address] [place] [address] PCP - General Family Medicine 12/02/23 documented as of this encounter
--- OUTSIDE RECORDS SUMMARY | 2025-04-13 07:28 | XMS_ITS | Clinical Summary ---
Author Organization [facility] Address [address] [facility] [place] [address] Care Team Providers Care Biometric Technician Name Role Phone Pj Sung MD Primary Care Provider [phone] Allergies Active Allergy Reactions Criticality Noted Date Comments Iodinated Contrast Media 08/24/2023 Other Reaction(s): Unknown Nitroglycerin 02/22/2022 Other Reaction(s): Not available, Unknown Statins 08/24/2023 Other Reaction(s): elevated liver enzymes, Unknown Medications acyclovir (Zovirax) 400 MG tablet Take 1 tablet twice a day by oral route for 30 days. Active alogliptin (Nesina) 25 MG tablet Take 1 tablet by mouth in the morning. 11/12/20 22 Active ALPRAZolam (Xanax) 0.25 MG tablet every 12 (twelve) hours. Active aspirin 81 MG EC tablet Take 1 tablet by mouth in the morning. Active B-Complex tablet as directed Orally Active cloNIDine (Catapres) 0.1 MG tablet Take 1 tablet by mouth in the morning and 1 tablet before bedtime. Active dicyclomine (Bentyl) 10 MG capsule Take 1 capsule every day by oral route. Active ezetimibe (Zetia) 10 MG tablet Take 1 tablet by mouth in the morning. Active ferrous sulfate 325 (65 Fe) MG tablet Take 1 tablet by mouth in the morning and 1 tablet before bedtime. Active Lasix 20 MG tablet 1 (one) time each day at the same time. 07/07/20 23 Active glimepiride (Amaryl) 4 MG tablet Take 1 tablet by mouth in the morning and 1 tablet before bedtime. Active labetalol (Normodyne) 300 MG tablet 3 (three) times a day Active levoFLOXacin (Levaquin) 750 MG tablet 1 (one) time each day at the same time. 07/23/20 23 Active omeprazole (PriLOSEC) [address] capsule Take 2 capsules every day by oral route for 90 days. Active pioglitazone (Actos) 45 MG tablet TAKE 1 TABLET BY MOUTH EVERY DAY for 90 Active KLOR-CON 20 MEQ ER tablet Take 1 tablet by mouth in the morning and 1 tablet before bedtime. Active prednisoLONE acetate (Pred-Forte) 1 % ophthalmic suspension INSTILL 1 DROP INTO RIGHT EYE 3 TIMES A DAY DIRECTED Active tamsulosin (Flomax) 0.4 MG 24 hr capsule Take 1 capsule every day by oral route for 90 days. Active cholecalcifero l (Vitamin D-[address]) 25 MCG (1000 UT) tablet Take 2,000 Units by mouth in the morning. Active metoclopramide (Reglan) 5 MG tablet every 12 (twelve) hours Active ezetimibe (Zetia) 10 MG tablet Take 10 mg by mouth in the morning. Active empagliflozin (Jardiance) 25 MG Take 1 tablet by mouth in the morning. 11/12/20 22 Active DULoxetine (Cymbalta) [address] capsuleIndicat ions:Neurogeni c pain Take 1 capsule (20 mg) by mouth at bedtime 90 capsule 1 08/01/20 24 Active rivaroxaban (Xarelto) 15 MG tablet Take 15 mg by mouth Active primidone (Mysoline) 250 MG tabletIndicati ons:Benign essential tremor 1/2 tab BID 90 tablet 1 04/10/20 25 Active apixaban (Eliquis) 2.5 MG tablet every 12 (twelve) hours. 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 (We have only MRA) Carotid stenosis, bilateral 04/10/2025 Assessment & Plan (04/10/2025 1:49 PM EDT): Plan redo US carotids 2026. JOSIAH (obstructive sleep apnea) 01/11/2024 Assessment & Plan (04/10/2025 1:49 PM EDT): Still have only PAPT. Get original PSG.0 Assessment & Plan (08/01/2024 11:49 AM EDT): Get original PSG (only received PAPT). Assessment & Plan (01/11/2024 2:07 PM EST): Get sleep studies for our records - [facility]. Also send to [facility] (though not sure if eval'd there). Polyneuropathy 01/07/2024 Benign essential tremor 01/07/2024 Assessment & Plan (04/10/2025 1:49 PM EDT): (Continue current regimen.) Assessment & Plan (08/01/2024 11:44 AM EDT): Incr current supply to 50/50/100. Send in PRM 250, 1/2 pill bid (verbally instructed that, if too sleepy with this AM dose, take 1/4 1/4 1/2 pill). Assessment & Plan (01/11/2024 2:02 PM EST): (Continue current regimen.) Option to incr to 4 pills/day if/when desired. Cervical paraspinal muscle spasm 01/07/2024 Assessment & Plan (04/10/2025 1:49 PM EDT): (Continue home PT.) Assessment & Plan (08/01/2024 11:49 AM EDT): (Continue home PT.) Assessment & Plan (01/11/2024 2:03 PM EST): (Continue home PT). Neurogenic pain 01/07/2024 Assessment & Plan (04/10/2025 1:49 PM EDT): (Continue current regimen.) Pt may call for incr to 40. Assessment & Plan (08/01/2024 11:48 AM EDT): Add duloxetine 20 hs. May try 40; call if more effective. Assessment & Plan (01/11/2024 2:03 PM EST): May request to restart GBP at a lower dose - 300 hs - when/if desired. Resolved Problems Problem Noted Date Diagnosed Date Resolved Date Parkinson disease 01/07/2024 01/11/2024 Encounters Date Type Department Care Team Description 04/12/2025 11:20 AM EDT Office Visit [facility] [address] [facility] 120 [place] [address] Blaise Dc DPM Verruca plantaris (Primary Dx); Foot pain, right; Diabetes mellitus due to underlying condition with diabetic polyneuropathy, unspecified whether mcc insulin use ([facility]); Pain due to onychomycosis of toenails of both feet 04/12/2025 Bamboo flowsheet [facility] [address] [facility] [address] [place] [address] Blaise Dc DPM 04/12/2025 Travel 04/10/2025 12:45 PM EDT Office Visit [facility] [address] [facility] [address] [place] [address] Lenin Montoya MD Benign essential tremor (Primary Dx); Neurogenic pain; Sequelae of cerebral infarction; Cervical paraspinal muscle spasm; JOSIAH (obstructive sleep apnea); Carotid stenosis, bilateral 04/10/2025 Bamboo flowsheet [facility] [address] [facility] [place] [address] Lenin Montoya MD 04/10/2025 Travel 03/08/2025 9:20 AM EDT Office Visit [facility] [address] [facility] [address] [place] [phone] Blaise Dc DPM Verruca plantaris (Primary Dx); Foot pain, right; Diabetes mellitus due to underlying condition with diabetic polyneuropathy, unspecified whether terminal operations manager insulin use ([facility]); Pain due to onychomycosis of toenails of both feet 03/08/2025 Bamboo flowsheet [facility] [address] [place] [address] [place] [phone] Blaise Dc DPM 03/08/2025 Travel from Last 3 Months Family History Medical History Relation Name Comments Heart disease Father Cancer Mother Melanoma Neg Hx Relation Name Status Comments Father Mother Social History Tobacco Use Types Packs/Day Years [...] on file Sexual Orientation Not on file Last Filed Vital Signs Vital Sign Reading Time Taken Comments Blood Pressure 128/79 09/14/2024 8:19 AM EDT Pulse 81 09/14/2024 8:19 AM EDT Temperature - - Respiratory Rate 16 04/12/2025 11:05 AM EDT Oxygen Saturation - - Inhaled Oxygen Concentration - - Weight 83.5 kg (184 lb) 04/12/2025 11:05 AM EDT Height 182.9 cm (6') 04/12/2025 11:05 AM EDT Body Mass Index 24.95 04/12/2025 11:05 AM EDT Plan of Treatment Upcoming Encounters Date Type Department Care Team ([facility] st Contact Info) Description 06/21/2025 10:40 AM EDT Office Visit [facility] [address] [facility] [address] [place] [phone] Blaise Dc DPM 3006 [facility] 5 [place] [address] 09/11/2025 1:15 PM EDT Office Visit [facility] [address] [place] [address] Mercedes Joy MD [address] [place] [address] 10/09/2025 1:45 PM EST Office Visit [facility] [address] [place] [address] Lenin Montoya MD 9908 [facility] 111 [place], [place] [phone] Health Maintenance Due Date Last Done Comments Pneumococcal Vaccine: 65+ Years Completed , 01/28/2015, 01/28/2015 Influenza Vaccine Completed 08/15/2024, , 08/18/2022, Additional history exists Insurance [facility]ICARE [facility] Care Teams Biometric Technician Relationship Specialty Start Date End Date Pj Sung MD [address] [place] [address] PCP - General Family Medicine 12/02/23
--- OUTSIDE RECORDS SUMMARY | 2025-04-13 07:28 | XMS_ITS | Encounter Summary ---
Author Organization [facility] Address [address] [place] [address] Care Team Providers Care Residential Caregiver Name Role Phone Pj Sung MD Primary Care Provider [phone] Encounter Details Date Type Department Care Team ([facility] Contact Info) Description 04/12/2025 Bamboo flowsheet [facility] [address] [facility] 120 [place] [address] Blaise Dc DPM [address] [address] Social History Tobacco Use Types Packs/Day Years [...] on file documented as of this encounter Plan of Treatment Upcoming Encounters Date Type Department Care Team ([facility] Contact Info) Description 06/21/2025 10:40 AM EDT Office Visit [facility] [address] [facility] 120 [place] [address] Blaise Dc DPM [address] [address] 09/11/2025 1:15 PM EDT Office Visit [facility] [address] [facility] 350 [place] [address] Mercedes Joy MD [address] [place] [address] 10/09/2025 1:45 PM EST Office Visit [facility] [place] [address] [place] [address] Lenin Montoya MD 2797 [facility] 111 [place], [place] [phone] documented as of this encounter Visit Diagnoses Not on filedocumented in this encounter Care Teams Residential Caregiver Relationship Specialty Start Date End Date Pj Sung MD [address] [place] [address] PCP - General Family Medicine 12/02/23 documented as of this encounter
--- OUTSIDE RECORDS SUMMARY | 2025-04-13 07:28 | XMS_ITS | Encounter Summary ---
Author Organization [id number] [address] [place] [address] Care Team Providers Care Sales Clerk Name Role Phone Pj Sung MD Primary Care Provider [phone] Encounter Details Date Type Department Care Team (Late st Contact Info) Description 02/15/2025 Orders Only [facility] External Film Storage [facility] [place] [address] Transcribe, Orders Support User Pain (Primary Dx) Social History Tobacco Use Types Packs/Day Years Used Date Smoking Tobacco: Never Assessed Sex and Gender Information Value Date Recorded Sex Assigned at Not on file Legal Sex Male 11:32 AM EDT Gender Identity Not on file Sexual Orientation Not on file documented as of this encounter Plan of Treatment Not on file documented as of this encounter Results * MRA neck without contrast (02/14/2025 3:25 PM EDT) us Scanning Provider External IMG MRI ORDERABLES Fi nal Result * MRA head without contrast (02/14/2025 3:05 PM EDT) us Scanning Provider External IMG MRI ORDERABLES Fi nal Result * MR brain without contrast (02/14/2025 8:25 AM EDT) us Scanning Provider External IMG MRI ORDERABLES Fi nal Result documented in this encounter Visit Diagnoses Diagnosis Pain- Primary Generalized pain documented in this encounter Care Teams Sales Clerk Relationship Specialty Start Date End Date Pj Sung MD [address] [place] [address] PCP - General Family Medicine 02/14/25 documented as of this encounter
--- OUTSIDE RECORDS SUMMARY | 2025-04-13 07:28 | XMS_ITS | Encounter Summary ---
Author Organization [facility] Address [address] [place] [address] Care Team Providers Care Children Counselor Name Role Phone Pj Sung MD Primary Care Provider [phone] Encounter Details Date Type Department Care Team (Latest Contact Info) Description 04/12/2025 Travel Social History Tobacco Use Types Packs/Day Years [...] EDT Office Visit [facility] 112 [facility] 120 [place] [phone] Blaise Dc DPM 3006 [facility] 5 [place] [address] 09/11/2025 1:15 PM EDT Office Visit [facility] [address] [facility] [address] [place] [address] Mercedes Joy MD [address] [facility] 350 [place] [address] 10/09/2025 1:45 PM EST Office Visit [facility] [address] [facility] [address] [place] [address] Lenin Montoya MD 6703 [facility] 111 [place] [address] documented as of this encounter Visit Diagnoses Not on filedocumented in this encounter Care Teams Children Counselor Relationship Specialty Start Date End Date Pj Sung MD [address] [place] [phone] PCP - General Family Medicine 12/02/23 documented as of this encounter
--- OUTSIDE RECORDS SUMMARY | 2025-04-13 07:28 | XMS_ITS | Encounter Summary ---
Author Organization [facility] Address [address] [place] [address] Care Team Providers Care Outsole Caser Name Role Phone Pj Sung MD Primary Care Provider [phone] Encounter Details Date Type Department Care Team (Latest Contact Info) Description 04/10/2025 Travel Social History Tobacco Use Types Packs/Day [...] PODIATRY 112 [facility] 120 [place] [address] Blaise Dc DPM 3006 [facility] 5 [place] [address] 09/11/2025 1:15 PM EDT Office Visit [facility] [address] [facility] 350 [place] [address] Mercedes Joy MD [address] [facility] 350 [place] [address] 10/09/2025 1:45 PM EST Office Visit [facility] [address] [facility] [address] [place] [address] Lenin Montoya MD 5168 [facility] 111 [place] [address] documented as of this encounter Visit Diagnoses Not on filedocumented in this encounter Care Teams Outsole Caser Relationship Specialty Start Date End Date Pj Sung MD [address] [place] [phone] PCP - General Family Medicine 12/02/23 documented as of this encounter
--- OUTSIDE RECORDS SUMMARY | 2025-04-13 07:28 | XMS_ITS | Encounter Summary ---
Author Organization [facility] Address [address] [place] [address] Care Team Providers Care Milling Machine Operator Name Role Phone Pj Sung MD Primary Care Provider [phone] Encounter Details Date Type Department Care Team ([facility] Contact Info) Description 04/10/2025 Bamboo flowsheet [facility] [address] [place] [address] Lenin Montoya MD 3052 [facility] 111 [place] [address] Social History Tobacco Use Types Packs/Day Years [...] Encounters Date Type Department Care Team (Late Contact Info) Description 06/21/2025 10:40 AM EDT Office Visit [facility] 112 [facility] 120 [place] [address] Blaise Dc DPM 3006 [facility] 5 [place] [address] 09/11/2025 1:15 PM EDT Office Visit [facility] [address] [facility] [address] [place] [address] Mercedes Joy MD [address] [facility] [address] [place] [address] 10/09/2025 1:45 PM EST Office Visit [facility] [place] [address] [place] [address] Lenin Montoya MD 7826 [facility] 111 [place], [place] [phone] documented as of this encounter Visit Diagnoses Not on filedocumented in this encounter Care Teams Milling Machine Operator Relationship Specialty Start Date End Date Pj Sung MD [address] [place] [phone] PCP - General Family Medicine 12/02/23 documented as of this encounter
--- OUTSIDE RECORDS SUMMARY | 2025-04-13 07:29 | XMS_ITS | Patient Health Record ---
Author Organization [facility] in [place] Address [address] [place] [address] Care Team Providers Care Adaptive Physical Educator Name Role Phone Pineda Erik Primary Care Provider [phone] VAN SUNG Unavailable [phone] Allergies Allergen (clinical drug ingredient) Drug/Non Drug Allergy documented on EMR Reaction Allergy Type Onset Date Status simvastatin Simvastatin elevated liver enzymes Drug Allergy Active Results Component Value Reference Range Notes UA DIP NONAUTO WO MICRO (810 02) - IN OFFICE Reviewed date:01/24/2025 06:29:49 PM Interpretation: Performing Lab: Notes/Report: COLOR yellow CLARITY clear GLUCOSE LARGE BILIRUBIN neg KETONE neg SPECIFIC GRAVITY 1.010 BLOOD TRACE PH 7 PROTEIN TRACE UROBILINOGEN neg NITRITE neg LEUKOCYTE ESTERASE neg GLYCOHEMOGLOBIN A1C Reviewed date:05/23/2024 03:36:41 PM Interpretation: Performing Lab: Notes/Report: [facility] , Glycohemoglobin A1C 8.3 4.5-6.2 % ADA RECOMMENDED LIMIT 4.0 - 6.0 ADA THERAPEUTIC TARGET < 7.0 ACTION SUGGESTED > 7.0 Estimated Average Glucose 192 Performing Lab: see note ML - [facility] LB ALBUMIN Reviewed date:06/19/2024 07:43:22 PM Interpretation: Performing Lab: Notes/Report: [facility] , Albumin Level 3.4 3.4-5.0 g/dL Performing Lab: see note ML - [facility] LB MAGNESIUM Reviewed date:06/19/2024 07:43:22 PM Interpretation: Performing Lab: Notes/Report: [facility] , Magnesium 2.1 1.8-2.4 mg/dL Performing Lab: see note ML - [facility] LB PHOSPHORUS Reviewed date:06/19/2024 07:43:22 PM Interpretation: Performing Lab: Notes/Report: [facility] , Phosphorus 3.9 2.6-4.7 mg/dL Performing Lab: see note ML - [facility] LB VITAMIN D 25 OH Reviewed date:06/19/2024 07:43:22 PM Interpretation: Performing Lab: Notes/Report: [facility] , Vitamin D 19.7 <20 ng/mL Vit D deficient 20-<30 ng/mL Vit D insufficient 30-100 ng/mL Vit D sufficient >100 ng/mL Potential Toxicity Performing Lab: see note ML - [facility] LB AMMONIA Reviewed date:08/16/2024 09:49:03 PM Interpretation: Performing Lab: Notes/Report: [facility] , Ammonia <10 11-32 umol/L Performing Lab: see note ML - [facility] LB BLOOD GASES BTY Reviewed date:08/16/2024 09:49:03 PM Interpretation: Performing Lab: Notes/Report: [facility] , pH ABG 7.451 7.350-7.450 ABG PCO2 38.3 35.0-45.0 mmHg PO2 ABG 72.2 80.0-100.0 mmHg HCO3 ABG 26.7 22.0-26.0 mmol/L Base Excess ABG 2.7 -2.0-2.0 mmol/L Oxygen Saturation ABG 94.8 Prince Test POSITIVE POSITIVE O2 Mode RA Puncture Site LR Performing Lab: see note ML - [facility] LB LACTATE or LACTIC ACID Reviewed date:08/16/2024 09:49:03 PM Interpretation: Performing Lab: Notes/Report: [facility] , Lactate/Lactic Acid 1.8 0.4-2.0 mmol/L Performing Lab: see note ML - [facility] LB XR chest 1V Reviewed date:08/16/2024 09:49:03 PM Interpretation: Performing Lab: Notes/Report: Source Facility: [facility]-[address] [place] [address] [address] XRay Report Signed Patient: NADIR HEREDIA MR#: [id number] : 1940 Acct:[id number] Age/Sex: 84 / M ADM Date: 08/16/24 Loc: ER Attending Dr: Ordering Physician: Lotus Ace D.O. Date of Service: 08/16/24 Procedure(s): XR chest 1V Accession Number(s): [id number] cc: Van Sung M.D.; Lotus Ace D.O. The [place] [id number] Patient Name: NADIR HEREDIA MRN: [id number] date: 1940 Sex: M Assigned Patient Location: ER Current Patient Location: ER Accession/Order Number: [id number] Exam Date: 08/16/2024 09:10 Report Date: 08/16/2024 09:31 At the request of: LOTUS ACE Procedure: XR chest 1V EXAMINATION: XR chest 1V HISTORY: ams COMPARISON: 10/10/2023 TECHNIQUE: AP portable FINDINGS: LUNGS: Progression of right basilar infiltrate obscuring the hemidiaphragm and partially obscuring the heart border VASCULATURE: Moderately increased pulmonary vasculature, worsening since the prior exam. PLEURA: No pneumothorax. Right pleural effusion CARDIAC: Moderate stable cardiomegaly MEDIASTINUM: No visible mass or adenopathy. BONES: No fracture or visible bone lesion. OTHER: Negative. XR/XR chest 1V IMPRESSION: Progression of now moderate right basilar infiltrate and pleural effusion Moderate pulmonary vasculature congestion with underlying cardiomegaly Electronically authenticated by: RAULITO CORBETT Date: 08/16/2024 09:31 Dictated By: Raulito Corbett M.D. Signed By: 08/16/24933 DD/ 0 TD/TT: [employer]: [place] [address] XRay Report Signed Patient: NADIR HEREDIA MR#: [id number] : 1940 Acct:[id number] Age/Sex: 84 / M ADM Date: 08/16/24 Loc: ER Attending Dr: Ordering Physician: Rice, Lotus D.O. Date of Service: 08/16/24 Procedure(s): XR chest 1V Accession Number(s): [id number] cc: Van Sung M.D. ; Lotus Ace D.O. The [address] [address] Patient Name: NADIR HEREDIA MRN: [id number] date: 1940 Sex: M Assigned Patient Location: ER Current Patient Loca tion: ER Accession/Order Numb er: [id number] Exam Date: 09:10 Report Date: 08/16/2024 09:31 At the request of: LOTUS ACE Procedure: XR chest 1V EXAMINATION: XR chest 1V HISTORY: ams COMPARISON: 10/10/2023 TECHNIQUE: AP portable FINDINGS: LUNGS: Progression o f right basilar infiltrate obscuring the hemidiaphragm and partially obscuring the heart border VASCULATURE: Moderat angella increased pulmonary vasculature, worsening since the prior exam. PLEURA: No pneumotho rax. Right pleural effusion CARDIAC: Moderate st able cardiomegaly MEDIASTINUM: No visi ble mass or adenopathy. BONES: No fracture o r visible bone lesion. OTHER: Negative. X R/XR chest 1V IMPRESSION: Progression of now moderate right basilar infiltrate and pleural effusion Moderate pulmonary vasculature congestion with underlying cardiomegaly Electronically authenticated by: RAULITO CORBETT Date: 08/16/2024 09:31 Dictated By: Carlin Corbett M.D. Signed By: 08/16/24933 DD/ 0 TD/TT: [employer]: JESUS HAQUE W or MICROSCOPIC Reviewed date:09/10/2024 09:12:17 PM Interpretation: Performing Lab: Notes/Report: [facility] , Color Urine LT. YELLOW YELLOW Clarity Urine CLEAR CLEAR Specific [place] Urine 1.010 1.005-1.025 pH Urine 7.0 5.0-9.0 Protein Urine NEGATIVE NEG/TRACE mg/dL Glucose Urine UA >=1000 NEGATIVE mg/dL Bilirubin Urine NEGATIVE NEGATIVE Ketones Urine NEGATIVE NEGATIVE mg/dL Blood Urine NEGATIVE NEGATIVE Nitrite Urine NEGATIVE NEGATIVE Urobilinogen Urine 0.2 0.2-1.0 EU/dL Leukocyte Esterase Urine NEGATIVE NEGATIVE WBC Urine 0-2 NONE SEEN #/HPF RBC Urine 0-2 0-2 #/HPF Bacteria Urine NONE SEEN NONE SEEN #/HPF Mucus Urine NONE SEEN NONE SEEN Squamous Epithelial Cell Urine RARE NONE/RARE #/LPF Crystals Seen? None Seen None Seen #/HPF Cast Seen? NONE SEEN NONE SEEN #/LPF Performing Lab: see note ML - [facility] LB XR chest 1V Reviewed date:09/10/2024 09:12:18 PM Interpretation: Performing Lab: Notes/Report: Source Facility: [place] [address] XRay Report Signed Patient: NADIR HEREDIA MR#: [id number] : 1940 Acct:[id number] Age/Sex: 84 / M ADM Date: 09/08/24 Loc: ER Attending Dr: Ordering Physician: Akhil Dobson M.D. Date of Service: 09/08/24 Procedure(s): XR chest 1V Accession Number(s): [id number] cc: Van Sung M.D.; Akhil Dobson M.D. [place] [address] Patient Name: NADIR HEREDIA MRN: [id number] date: 1940 Sex: M Assigned Patient Location: ER Current Patient Location: ER Accession/Order Number: [id number] Exam Date: 09/08/2024 12:18 Report Date: 09/08/2024 13:01 At the request of: AKHIL DOBSON Procedure: XR chest 1V EXAM: XR chest 1V HISTORY: Confusion. COMPARISON: Portable chest radiograph dated 08/16/2024. TECHNIQUE: AP erect portable chest radiograph performed. FINDINGS: Stable moderate enlargement of the cardiac silhouette which is partially obscured. Stable pulmonary vascular congestion, stable bibasilar consolidation and stable small right pleural effusion which in the right clinical setting are consistent with congestive heart failure. Correlate with clinical findings to exclude underlying pneumonia. Stable small calcified granuloma at the left lung base. There is no pneumothorax or acute osseous abnormality. XR/XR chest 1V IMPRESSION: Stable findings which in the right clinical setting are consistent with congestive heart failure and pulmonary edema. Correlate with clinical findings to exclude an underlying pneumonia. Electronically authenticated by: NATASHA US Date: 09/08/2024 13:01 Dictated By: Natasha Us M.D. Signed By: 09/08/24 1303 DD/ 1301 TD/TT: [employer]: [place] [address] XRay Report Signed Patient: NADIR HEREDIA MR#: [id number] : 1940 Acct:[id number] Age/Sex: 84 / M ADM Date: 09/08/24 Loc: ER Attending Dr: Ordering Physician: Akhil Dobson M.D. Date of Service: 09/08/24 Procedure(s): XR chest 1V Accession Number(s): [id number] cc: Van Sung M.D. ; Akhil Dobson M.D. [place] [address] Patient Name: NADIR HEREDIA MRN: [id number] date: 1940 Sex: M Assigned Patient Location: ER Current Patient Loca tion: ER Accession/Order Numb er: [id number] Exam Date: 12:18 Report Date: 09/08/2024 13:01 At the request of: AKHIL DOBSON Procedure: XR chest 1V EXAM: XR chest 1V HISTORY: Confusion. COMPARISON: Portable chest radiograph dated 08/16/2024. TECHNIQUE: AP erect portable chest radiograph performed. FINDINGS: Stable moderate enlargement of the cardiac silhouette which is partially obscured. Stable pulmonary vascular congestion, stable bibasilar consolidation and stable small rig ht pleural effusion which in the right clinical setting are consistent with congestive heart failure. Correlate with clinical findings to exclude underlying pneumonia. Stable small calcified granuloma at the left lung base. There is no pneumothorax or acute osseous abnormality. X R/XR chest 1V IMPRESSION: Stable findings whic h in the right clinical setting are consistent with congestive heart gina lure and pulmonary edema. Correlate with clinical findings to exclude an underl rodolfo pneumonia. Electronically authenticated by: NATASHA US Date: 09/08/2024 13:01 Dictated By: Yaneth Us M.D. Signed By: 09/08/24 130 DD/ 130 TD/TT: [employer]: PROF TARA Faust ([facility] MET) Reviewed date:10/30/2024 02:21:51 PM Interpretation: Performing Lab: Notes/Report: [facility] , Sodium 144 136-145 mmol/L Potassium 4.3 3.5-5.1 mmol/L Chloride 106 98-107 mmol/L Carbon Dioxide 26.3 21.0-32.0 mmol/L Anion Gap 16.0 Glucose 199 74-106 mg/dL Blood Urea Nitrogen 36.0 7.0-18.0 mg/dL Creatinine 1.87 0.70-1.30 mg/dL Estimated GFR ( Vira 42 >=60 mL/min/1.73m 2 Estimated GFR (Non- Coleen 34 >=60 mL/min/1.73m 2 BUN Creatinine Ratio 19.3 Calcium 8.9 8.5-10.1 mg/dL Performing Lab: see note ML - [facility] LB URINE T PROTEIN CREAT RATIO Reviewed date:12/24/2024 11:26:08 AM Interpretation: Performing Lab: Notes/Report: [facility] , Total Protein Urine Random 14.3 <=11.9 mg/dL Creatinine Urine Random 52.46 20.00-30 0.00 mg/dL Protein Creatinine Ratio Urine 0.27 Performing Lab: see note ML - [facility] LB PROF CHEM 8 ([facility] MET[facility]) Reviewed date:12/24/2024 11:26:08 AM Interpretation: Performing Lab: Notes/Report: [facility] , Sodium 142 136-145 mmol/L Potassium 4.6 3.5-5.1 mmol/L Chloride 105 98-107 mmol/L Carbon Dioxide 28.1 21.0-32.0 mmol/L Anion Gap 13.5 Glucose 282 74-106 mg/dL Blood Urea Nitrogen 25.0 7.0-18.0 mg/dL Creatinine 1.57 0.70-1.30 mg/dL Estimated GFR ( Vira 51 >=60 mL/min/1.73m 2 Estimated GFR (Non- Coleen 42 >=60 mL/min/1.73m 2 BUN Creatinine Ratio 15.9 Calcium 8.7 8.5-10.1 mg/dL Performing Lab: see note ML - [facility] PHOSPHORUS Reviewed date:12/24/2024 11:26:08 AM Interpretation: Performing Lab: Notes/Report: [facility] , Phosphorus 3.7 2.6-4.7 mg/dL Performing Lab: see note ML - [facility] MAGNESIUM Reviewed date:12/24/2024 11:26:08 AM Interpretation: Performing Lab: Notes/Report: [facility] , Magnesium 2.2 1.8-2.4 mg/dL Performing Lab: see note ML - [facility] HEMOGLOBIN Reviewed date:12/24/2024 11:26:08 AM Interpretation: Performing Lab: Notes/Report: [facility] , Hemoglobin 12.1 14.0-18.0 g/dL Performing Lab: see note ML - [facility] ALBUMIN Reviewed date:12/24/2024 11:26:08 AM Interpretation: Performing Lab: Notes/Report: [facility] , Albumin Level 3.3 3.4-5.0 g/dL Performing Lab: see note - [facility] PROF CHEM 8 (BAS METB) Reviewed date:11/11/2024 08:52:42 PM Interpretation: Performing Lab: Notes/Report: [facility] , Sodium 140 136-145 mmol/L Potassium 5.0 3.5-5.1 mmol/L Chloride 103 98-107 mmol/L Carbon Dioxide 26.8 21.0-32.0 mmol/L Anion Gap 15.2 Glucose 344 74-106 mg/dL Blood Urea Nitrogen 21.0 7.0-18.0 mg/dL Creatinine 1.65 0.70-1.30 mg/dL Estimated GFR ( Vira 48 >=60 mL/min/1.73m 2 Estimated GFR (Non- Coleen 40 >=60 mL/min/1.73m 2 BUN Creatinine Ratio 12.7 Calcium 8.7 8.5-10.1 mg/dL Performing Lab: see note ML - [facility] LB CBC AUTO DIFF Reviewed date:10/30/2024 02:21:51 PM Interpretation: Performing Lab: Notes/Report: [facility] , White Blood Count 14.0 4.0-11.0 10 3/uL Red Blood Count 3.40 4.70-6.10 10 6/uL Hemoglobin 11.6 14.0-18.0 g/dL Hematocrit 35.3 42.0-54.0 % Mean Corpuscular Volume 103.8 80.0-94.0 fL Mean Corpuscular Hemoglobin 34.1 25.9-34.0 pg Mean Corpuscular HGB Conc 32.9 29.9-35.2 g/dL Red Cell Distribution Width 14.6 11.0-15.0 % Platelet Count 185 150-450 10 3/uL Mean Platelet Volume 12.1 9.5-13.5 fL Neutrophils Percent Auto 79.1 43.0-75.0 % Lymphocytes Percent Auto 9.4 20.5-60.0 % Monocytes Percent Auto 9.9 1.7-12.0 % Eosinophils Percent Auto 0.9 0.9-7.0 % Basophils Percent Auto 0.2 0.2-2.0 % Immature Granulocytes Pct Auto 0.5 0.0-0.5 % Neutrophils Absolute Auto 11.1 1.4-6.5 10 3/uL Lymphocytes Absolute Auto 1.3 1.2-3.8 10 3/uL Monocytes Absolute Auto 1.4 0.3-0.8 10 3/uL Eosinophils Absolute Auto 0.1 0.0-0.7 10 3/uL Basophils Absolute Auto 0.0 0.0-0.1 10 3/uL Immature Granulocytes Abs Auto 0.07 0.00-0.03 10 3/uL Performing Lab: see note ML - [facility] LB Type and Screen Reviewed date:10/29/2024 08:20:36 PM Interpretation: Performing Lab: Notes/Report: [facility] , Blood Type A Positive Antibody Screen NEGATIVE CBC no Diff (Hemogram) Reviewed date:10/29/2024 08:20:36 PM Interpretation: Performing Lab: Notes/Report: [facility] , White Blood Count 15.4 4.0-11.0 10 3/uL Red Blood Count 3.72 4.70-6.10 10 6/uL Hemoglobin 12.7 14.0-18.0 g/dL Hematocrit 38.5 42.0-54.0 % Mean Corpuscular Volume 103.5 80.0-94.0 fL Mean Corpuscular Hemoglobin 34.1 25.9-34.0 pg Mean Corpuscular HGB Conc 33.0 29.9-35.2 g/dL Red Cell Distribution Width 14.1 11.0-15.0 % Platelet Count 211 150-450 10 3/uL Mean Platelet Volume 11.6 9.5-13.5 fL Performing Lab: see note ML - [facility] PROF CHEM 8 (BAS METB) Reviewed date:10/29/2024 08:20:36 PM Interpretation: Performing Lab: Notes/Report: [facility] , Sodium 142 136-145 mmol/L Potassium 4.6 3.5-5.1 mmol/L Chloride 102 98-107 mmol/L Carbon Dioxide 26.0 21.0-32.0 mmol/L Anion Gap 18.6 Glucose 281 74-106 mg/dL Blood Urea Nitrogen 30.0 7.0-18.0 mg/dL Creatinine 1.85 0.70-1.30 mg/dL Estimated GFR ( Vira 42 >=60 mL/min/1.73m 2 Estimated GFR (Non- Coleen 35 >=60 mL/min/1.73m 2 BUN Creatinine Ratio 16.2 Calcium 8.4 8.5-10.1 mg/dL Performing Lab: see note ML - [facility] LB Prothrombin Time INR Reviewed date:10/29/2024 08:20:36 PM Interpretation: Performing Lab: Notes/Report: [facility] , Prothrombin Time 10.5 9.0-11.6 sec INR 0.99 DESIRED INR: 2.0-3.0 CONDITIONS NOT LISTED BELOW 2.5-3.5 FOR PROSTHETIC HEART VALVE REPLACEMENT 2.5-3.5 RECURRENT THROMBOSIS Performing Lab: see note ML - [facility] LB PROF 14(COMP METB) Reviewed date:10/29/2024 08:20:36 PM Interpretation: Performing Lab: Notes/Report: [facility] , Sodium 137 136-145 mmol/L Potassium 4.1 3.5-5.1 mmol/L Chloride 103 98-107 mmol/L Carbon Dioxide 27.2 21.0-32.0 mmol/L Anion Gap 10.9 Glucose 262 74-106 mg/dL Blood Urea Nitrogen 24.0 7.0-18.0 mg/dL Creatinine 1.78 0.70-1.30 mg/dL Estimated GFR ( Vira 44 >=60 mL/min/1.73m 2 Estimated GFR (Non- Coleen 37 >=60 mL/min/1.73m 2 BUN Creatinine Ratio 13.5 Calcium 8.7 8.5-10.1 mg/dL Bilirubin Total 0.7 0.2-1.0 mg/dL Aspartate Amino Transferase 20 15-37 U/L Alanine Aminotransferase 19 16-63 U/L Alkaline Phosphatase 91 46-116 U/L Total Protein 6.1 6.4-8.2 g/dL Albumin Level 2.8 3.4-5.0 g/dL Globulin 3.3 Albumin Globulin Ratio 0.8 Performing Lab: see note ML - [facility] LB CBC AUTO DIFF Reviewed date:10/29/2024 08:20:36 PM Interpretation: Performing Lab: Notes/Report: [facility] , White Blood Count 7.5 4.0-11.0 10 3/uL Red Blood Count 4.05 4.70-6.10 10 6/uL Hemoglobin 13.9 14.0-18.0 g/dL Hematocrit 40.6 42.0-54.0 % Mean Corpuscular Volume 100.2 80.0-94.0 fL Mean Corpuscular Hemoglobin 34.3 25.9-34.0 pg Mean Corpuscular HGB Conc 34.2 29.9-35.2 g/dL Red Cell Distribution Width 14.1 11.0-15.0 % Platelet Count 194 150-450 10 3/uL Mean Platelet Volume 11.8 9.5-13.5 fL Neutrophils Percent Auto 78.8 43.0-75.0 % Lymphocytes Percent Auto 8.8 20.5-60.0 % Monocytes Percent Auto 9.6 1.7-12.0 % Eosinophils Percent Auto 1.7 0.9-7.0 % Basophils Percent Auto 0.4 0.2-2.0 % Immature Granulocytes Pct Auto 0.7 0.0-0.5 % Neutrophils Absolute Auto 5.9 1.4-6.5 10 3/uL Lymphocytes Absolute Auto 0.7 1.2-3.8 10 3/uL Monocytes Absolute Auto 0.7 0.3-0.8 10 3/uL Eosinophils Absolute Auto 0.1 0.0-0.7 10 3/uL Basophils Absolute Auto 0.0 0.0-0.1 10 3/uL Immature Granulocytes Abs Auto 0.05 0.00-0.03 10 3/uL Performing Lab: see note ML - [facility] CA echo doppler complete Reviewed date:10/18/2024 07:39:53 PM Interpretation: Performing Lab: Notes/Report: Source Facility: [place] [address] Cardiology Report Signed Patient: NADIR HEREDIA MR#: [id number] : 1940 Acct:[id number] Age/Sex: 84 / M ADM Date: 10/18/24 Loc: CARD Attending Dr: CLARIBEL PUGA Ordering Physician: CLARIBEL PUGA Date of Service: 10/18/24 Procedure(s): CA echo doppler complete Accession Number(s): [id number] cc: Van Sung M.D.; CLARIBEL PUGA Patient Name: NADIR HEREDIA MR#: [id number] : 1940 Exam Date: 10/18/2024 Ordering Doctor: DR CLARIBEL PUGA M.D. ECHOCARDIOGRAM REPORT PROCEDURE: CA ECHO DOPPLER COMPLETE INDICATIONS: Aortic valve stenosis COMPARISON: None. DESCRIPTION: COMPLETE ECHOCARDIOGRAM Real-time transthoracic echocardiography with 2D, M-mode, spectral and color flow Doppler performed. QUALITY: Technical quality was good. BSA 2.12 m2 LEFT VENTRICLE: Normal chamber size. Moderate to severe concentric left ventricular hypertrophy. Global left ventricular systolic function is normal. LV EF: Estimated left ventricular ejection fraction is 55-60%. DIASTOLIC: Not adequately assessed due to heart rhythm. ATRIAL SEPTUM: LEFT ATRIUM: Severe dilatation. RIGHT ATRIUM: Severe dilatation. RIGHT VENTRICLE: Mild dilatation. Normal right ventricular systolic function. TRICUSPID VALVE: Normal mobility and thickness. No stenosis with mild regurgitation. Severe pulmonary hypertension. RVSP 64 mmHg MITRAL VALVE: Normal mobility and thickness. No evidence of mitral valve stenosis. Mild mitral annular calcification. Mild mitral regurgitation. AORTIC VALVE: Normal trileaflet appearance. Heavily calcified aortic valve. Moderately diminished mobility. Doppler velocity suggest moderate aortic valve stenosis. DVI 0.32, MELY 1.1 cm2, Vmax 2.97 m/s, mean gradient 19 mmHg. Mild aortic regurgitation. AORTIC ROOT: Mildly dilated. Measuring 4.1 cm, ascending aorta measures 3.4 cm. PULMONIC VALVE: Normal thickness and mobility. No stenosis. Mild regurgitation. PERICARDIUM: Moderate pericardial effusion. Moderate circumflex pericardial effusion with no echocardiographic signs of tamponade. IVC: Moderate dilatation measuring 2.5 cm with partial collapse. PLEURA: CONCLUSION: 1. Moderate to severe concentric left ventricular hypertrophy with normal systolic function. LVEF is estimated at 55 to 60%. 2. Mildly dilated right ventricle with normal systolic function. 3. Severe biatrial dilatation. 4. Moderate aortic valve stenosis. The aortic valve appears heavily calcified. 5. Mild aortic, mitral, tricuspid and pulmonic regurgitation. 6. Severely elevated right-sided pressures. RVSP is 64 mmHg. 7. Moderate circumferential pericardial effusion without echocardiographic signs of tamponade. Adult Echocardiography Procedure Report Left Ventricle LVEDD (3.7 - 5.6 cm): 4.09 cm LVESD (2.2 - 4.0 cm): 2.69 cm LVIVS thickness (0.6 - 1.2 cm): 1.62 cm LVPW thickness (0.5 - 1.0 cm): 1.85 cm e': 0.06 m/s E - e': 15.84 LVOT Max Gradient: 3.69 mm[Hg] LVOT Area (cm2): 0.96 m/s Peak Velocity (LVOT): 0.96 m/s Mean Velocity (LVOT): 0.69 m/s LVOT Diameter 2.08 cm Left Ventricular Ejection Fraction: 55-60 % Left Atrium LA Volume Index (2D A2C): 88.98 ml/m2 Left Atrium Systolic Dimension: 6.15 cm Mitral Valve MV E to A Ratio: 81.18 Mitral Valve A-Wave Peak Velocity: 0.01 m/s Mitral Valve E-Wave Peak Velocity: 0.92 m/s Right Ventricle RV Internal Diastolic Dimension: 4.38 cm Aorta AO Root Diam: 4.14 cm Ascending Ao Diam: 3.45 cm Aortic Valve AoV Area (Peak Kyle): 1.20 cm2, 1.10 cm2 AoV Area (VTI): 1.42 cm2, 1.31 cm2 Peak Velocity(Antegrade Flow): 2.97 m/s, 2.49 m/s, 2.68 m/s Peak Gradient(Antegrade Flow): 35.25 mm[Hg], 24.82 mm[Hg], 28.67 mm[Hg] Mean Velocity(Antegrade Flow): 2.03 m/s, 1.76 m/s, 1.90 m/s Mean Gradient(Antegrade Flow): 18.75 mm[Hg], 13.91 mm[Hg], 16.17 mm[Hg] Velocity Time Integral: 64.15 cm, 52.78 cm, 60.06 cm Tricuspid Valve Peak Velocity (Regurgitant Flow): 2.24 m/s, 3.37 m/s, 3.51 m/s Pulmonic Valve Mean Gradient: 2.22 mm[Hg], 2.19 mm[Hg] Mean Velocity: 0.71 m/s, 0.71 m/s Peak Velocity: 0.92 m/s, 0.87 m/s Peak Gradient: 3.53 mm[Hg], 3.24 mm[Hg], 3.03 mm[Hg] Right Atrium Right Atrium Systolic Pressure: 145.35 ml, 145.35 ml Dictated by: Claribel Puga M.D. on 10/18/2024 at 14:13 Approved by: Claribel Puga M.D. on 10/18/2024 at 14:25 Dictated By: CLARIBEL PUGA Signed By: 10/18/24 1426 DD/ 1425 TD/TT: [employer]: [place] [address] Cardiology Report Signed Patient: NADIR HEREDIA MR#: [id number] : 1940 Acct:[id number] Age/Sex: 84 / M ADM Date: 10/18/24 Loc: CARD Attending Dr: CLARIBEL PUGA Ordering Physician: CLARIBEL PUGA Date of Service: 10/18/24 Procedure(s): CA ech o doppler complete Accession Number(s): [id number] cc: Van Sung M.D. ; CLARIBEL PUGA Patient Name: NADIR HEREDIA MR#: [id number] : 1940 Exam Date: 10/18/2024 Ordering Doctor: DR CLARIBEL PUGA M.D. ECHOCARDIOGRAM REPORT PROCEDURE: CA ECHO DOPPLER COMPLETE INDICATIONS: Aortic valve stenosis COMPARISON: None. DESCRIPTION: COMPLET E ECHOCARDIOGRAM Real-time transthoracic echocardiography wit h 2D, M-mode, spectral and color flow Doppler performed. QUALITY: Technical quality was good. BSA 2.12 m2 LEFT VENTRICLE: Norm al chamber size. Moderate to severe concentric left ventricular hypertro phy. Global left ventricular systolic function is normal. LV EF: Estimated lef t ventricular ejection fraction is 55-60%. DIASTOLIC: Not adequ ately assessed due to heart rhythm. ATRIAL SEPTUM: LEFT ATRIUM: Severe dilatation. RIGHT ATRIUM: Severe dilatation. RIGHT VENTRICLE: Mil d dilatation. Normal right ventricular systolic function. TRICUSPID VALVE: Nor mal mobility and thickness. No stenosis with mild regurgitation. Sever e pulmonary hypertension. RVSP 64 mmHg MITRAL VALVE: Normal mobility and thickness. No evidence of mitral valve stenosis. Mild francis l annular calcification. Mild mitral regurgitation. AORTIC VALVE: Normal trileaflet appearance. Heavily calcified aortic valve. Moderately diminished mobility. Doppler velocity suggest moderate aortic valve stenosi s. DVI 0.32, MELY 1.1 cm2, Vmax 2.97 m/s, mean gradient 19 mmHg. Mild aortic regurgitation. AORTIC ROOT: Mildly dilated. Measuring 4.1 cm, ascending aorta measures 3.4 cm. PULMONIC VALVE: Norm al thickness and mobility. No stenosis. Mild regurgitation. PERICARDIUM: Moderat e pericardial effusion. Moderate circumflex pericardial effusion with no echocardiographic signs of tamponade. IVC: Moderate dilata tion measuring 2.5 cm with partial collapse. PLEURA: CONCLUSION: 1. Moderate to sever e concentric left ventricular hypertrophy with normal systolic function. L VEF is estimated at 55 to 60%. 2. Mildly dilated ri ght ventricle with normal systolic function. 3. Severe biatrial dilatation. 4. Moderate aortic v alve stenosis. The aortic valve appears heavily calcified. 5. Mild aortic, mitr al, tricuspid and pulmonic regurgitation. 6. Severely elevated right-sided pressures. RVSP is 64 mmHg. 7. Moderate circumferential pericardial effusion without echocardiographic signs of tamponade. Adult Echocardiograp hy Procedure Report Left Ventricle LVEDD (3.7 - 5.6 cm) : 4.09 cm LVESD (2.2 - 4.0 cm) : 2.69 cm LVIVS thickness (0.6 - 1.2 cm): 1.62 cm LVPW thickness (0.5 - 1.0 cm): 1.85 cm e': 0.06 m/s E - e': 15.84 LVOT Max Gradient: 3 .69 mm[Hg] LVOT Area (cm2): 0.96 m/s Peak Velocity (LVOT) : 0.96 m/s Mean Velocity (LVOT) : 0.69 m/s LVOT Diameter 2.08 cm Left Ventricular Eje ction Fraction: 55-60 % Left Atrium LA Volume Index (2D A2C): 88.98 ml/m2 Left Atrium Systolic Dimension: 6.15 cm Mitral Valve MV E to A Ratio: 81.18 Mitral Valve A-Wave Peak Velocity: 0.01 m/s Mitral Valve E-Wave Peak Velocity: 0.92 m/s Right Ventricle RV Internal Diastoli c Dimension: 4.38 cm Aorta AO Root Diam: 4.14 cm Ascending Ao Diam: 3 .45 cm Aortic Valve AoV Area (Peak Kyle): 1.20 cm2, 1.10 cm2 AoV Area (VTI): 1.42 cm2, 1.31 cm2 Peak Velocity(Antegr leela Flow): 2.97 m/s, 2.49 m/s, 2.68 m/s Peak Gradient(Antegr leela Flow): 35.25 mm[Hg], 24.82 mm[Hg], 28.67 mm[Hg] Mean Velocity(Antegr leela Flow): 2.03 m/s, 1.76 m/s, 1.90 m/s Mean Gradient(Antegr leela Flow): 18.75 mm[Hg], 13.91 mm[Hg], 16.17 mm[Hg] Velocity Time Integr al: 64.15 cm, 52.78 cm, 60.06 cm Tricuspid Valve Peak Velocity (Regurgitant Flow): 2.24 m/s, 3.37 m/s, 3.51 m/s Pulmonic Valve Mean Gradient: 2.22 mm[Hg], 2.19 mm[Hg] Mean Velocity: 0.71 m/s, 0.71 m/s Peak Velocity: 0.92 m/s, 0.87 m/s Peak Gradient: 3.53 mm[Hg], 3.24 mm[Hg], 3.03 mm[Hg] Right Atrium Right Atrium Systoli c Pressure: 145.35 ml, 145.35 ml Dictated by: Claribel Puga M.D. on 10/18/2024 at 14:13 Approved by: Claribel Puga M.D. on 10/18/2024 at 14:25 Dictated By: CLARIBEL PUGA Signed By: 10/18/24 1426 DD/ 1425 TD/TT: [facility] [employer] [facility]: CT head/brain wo con Reviewed date:09/10/2024 09:12:17 PM Interpretation: Performing Lab: Notes/Report: Source Facility: [place] [address] CT Scan Report Signed Patient: NADIR HEREDIA MR#: [id number] : 1940 Acct:[id number] Age/Sex: 84 / M ADM Date: 09/08/24 Loc: ER Attending Dr: Ordering Physician: Akhil Dobson M.D. Date of Service: 09/08/24 Procedure(s): CT head/brain wo con Accession Number(s): [id number] cc: Van Sung M.D. [place] [address] Patient Name: NADIR HEREDIA MRN: [id number] date: 1940 Sex: M Assigned Patient Location: ER Current Patient Location: ER Accession/Order Number: [id number] Exam Date: 09/08/2024 12:45 Report Date: 09/08/2024 13:08 At the request of: AKHIL DOBSON Procedure: CT head/brain wo con EXAM: CT head/brain wo con HISTORY: Episode of confusion COMPARISON: CT head 08/16/2024. TECHNIQUE: Axial noncontrast CT imaging of the head was performed with coronal and sagittal reformats. This CT exam was performed using one or more of the following dose reduction techniques: Automated exposure control, adjustment of the MA and/or kV according to patient size, or use of iterative reconstruction technique. FINDINGS: Calvarium/skull base: No evidence of acute fracture or destructive lesion. Bilateral intraocular lens replacement. Mastoid air cells are well aerated. Paranasal sinuses: No air fluid levels. Brain: No acute intracranial hemorrhage. No acute large vascular territory infarct. 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 Mild parenchymal volume loss. No mass lesion or mass effect. No hydrocephalus. Intracranial atherosclerosis. CT/CT head/brain wo con IMPRESSION: No acute intracranial process. No substantial change in appearance of the brain parenchyma compared to 08/16/2024. Electronically authenticated by: RATNA PETERS Date: 09/08/2024 13:08 Dictated By: Ratna Peters M.D. Signed By: 09/08/24 1311 DD/ 1308 TD/TT: [facility] [employer] [facility]: [place] [address] CT Scan Report Signed Patient: NADIR HEREDIA MR#: [id number] : 1940 Acct:[id number] Age/Sex: 84 / M ADM Date: 09/08/24 Loc: ER Attending Dr: Ordering Physician: Akhil Dobson M.D. Date of Service: 09/08/24 Procedure(s): CT head/brain wo con Accession Number(s): [id number] cc: Van Sung M.D. [place] [address] Patient Name: NADIR HEREDIA MRN: [id number] date: 1940 Sex: M Assigned Patient Location: ER Current Patient Loca tion: ER Accession/Order Numb er: [id number] Exam Date: 12:45 Report Date: 09/08/2024 13:08 At the request of: AKHIL DOBSON Procedure: CT head/b rain wo con EXAM: CT head/brain wo con HISTORY: Episode of confusion COMPARISON: CT head 08/16/2024. TECHNIQUE: Axial noncontrast CT imaging of the head was performed with coronal and sagittal reforma ts. This CT exam was performed using one or more of the following dose reduc tion techniques: Automated exposure control, adjustment of the MA and/or kV according to patient size, or use of iterative reconstruction technique. FINDINGS: Calvarium/skull base : No evidence of acute fracture or destructive lesion. Bilateral intraocula r lens replacement. Mastoid air cells are well aerated. Paranasal sinuses: N o air fluid levels. Brain: No acute intracranial hemorrhage. No acute large vascular territory infarct. Remote lacu rafaela infarct of the right anterior limb of the internal capsule and right caudate. Mild parenchymal volume loss. No mass lesion or mass effect. No hydroceph alus. Intracranial atherosclerosis. C T/CT head/brain wo con IMPRESSION: No acute intracrania l process. No substantial change in appearance of the brain parenchyma compared to 08/16/2024. Electronically authenticated by: RATNA PETERS Date: 09/08/2024 13:08 Dictated By: Ratna Peters M.D. Signed By: 09/08/24 1311 DD/ 1308 TD/TT: [facility] [employer] [facility]: ECG 12 lead Reviewed date:09/13/2024 06:22:56 PM Interpretation: Performing Lab: Notes/Report: Source Facility: [facility]-[address] [place] [address] [place] [address] Electrocardiograph Report Signed Patient: NADIR HEREDIA MR#: [id number] : 1940 Acct:[id number] Age/Sex: 84 / M ADM Date: 09/08/24 Loc: ER Attending Dr: Ordering Physician: Akhil Dobson M.D. 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 Signed By: 09/12/242258 DD/ 120 TD/TT: [facility] [employer] [facility]: [place] [address] Electrocardiograph Report Signed Patient: NADIR HEREDIA MR#: [id number] : 1940 Acct:[id number] Age/Sex: 84 / M ADM Date: 09/08/24 Loc: ER Attending Dr: Ordering Physician: Akhil Dobson M.D. 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 Signed By: 09/12/242258 DD/ 1203 TD/TT: [facility] [employer] [facility]: Troponin I High Sensitivity Reviewed date:09/08/2024 12:39:03 PM Interpretation: Performing Lab: Notes/Report: [facility] , Troponin I High Sensitivity 14.8 4.0-76.1 pg/mL CUT-OFF POINTS HAVE BEEN ESTABLISHED BASED ON THE FOURTH UNIVERSAL DEFINITION OF MYOCARDIAL INFARCTION. THE UPPER REFERENCE LIMIT (URL) OF TROPONIN, DEFINED THE 99TH PERCENTILE OF cTnI DISTRIBUTION IN A REFERENCE POPULATION, HAS BEEN CONFIRMED THE DECISION THRESHOLD FOR AR DIAGNOSIS. 99TH PERCENTILE = 76.2 PG/ML NOTE: HIGH-SENSITIVITY TROPONIN ASSAY IS NOT INTENDED TO BE USED IN ISOLATION BUT SHOULD BE INTERPRETED IN CONJUNCTION WITH OTHER DIAGNOSTIC AND CLINICAL INFORMATION. Performing Lab: see note ML - [facility] LB PROF CHEM 8 (BAS METB) Reviewed date:09/08/2024 12:39:03 PM Interpretation: Performing Lab: Notes/Report: [facility] , Sodium 139 136-145 mmol/L Potassium 4.8 3.5-5.1 mmol/L Chloride 102 98-107 mmol/L Carbon Dioxide 25.6 21.0-32.0 mmol/L Anion Gap 16.2 Glucose 215 74-106 mg/dL Blood Urea Nitrogen 24.0 7.0-18.0 mg/dL Creatinine 1.59 0.70-1.30 mg/dL Estimated GFR ( Vira 50 >=60 mL/min/1.73m 2 Estimated GFR (Non- Coleen 42 >=60 mL/min/1.73m 2 BUN Creatinine Ratio 15.1 Calcium 9.0 8.5-10.1 mg/dL Performing Lab: see note ML - [facility] LB CBC AUTO DIFF Reviewed date:09/08/2024 12:40:56 PM Interpretation: Performing Lab: Notes/Report: [facility] , White Blood Count 7.9 4.0-11.0 10 3/uL Red Blood Count 4.62 4.70-6.10 10 6/uL Hemoglobin 15.8 14.0-18.0 g/dL Hematocrit 46.9 42.0-54.0 % Mean Corpuscular Volume 101.5 80.0-94.0 fL Mean Corpuscular Hemoglobin 34.2 25.9-34.0 pg Mean Corpuscular HGB Conc 33.7 29.9-35.2 g/dL Red Cell Distribution Width 14.3 11.0-15.0 % Platelet Count 168 150-450 10 3/uL Mean Platelet Volume 11.3 9.5-13.5 fL Neutrophils Percent Auto 77.8 43.0-75.0 % Lymphocytes Percent Auto 11.7 20.5-60.0 % Monocytes Percent Auto 8.1 1.7-12.0 % Eosinophils Percent Auto 1.5 0.9-7.0 % Basophils Percent Auto 0.5 0.2-2.0 % Immature Granulocytes Pct Auto 0.4 0.0-0.5 % Neutrophils Absolute Auto 6.1 1.4-6.5 10 3/uL Lymphocytes Absolute Auto 0.9 1.2-3.8 10 3/uL Monocytes Absolute Auto 0.6 0.3-0.8 10 3/uL Eosinophils Absolute Auto 0.1 0.0-0.7 10 3/uL Basophils Absolute Auto 0.0 0.0-0.1 10 3/uL Immature Granulocytes Abs Auto 0.03 0.00-0.03 10 3/uL Performing Lab: see note ML - [facility] LB PROF 14(COMP METB) Reviewed date:08/17/2024 08:52:06 PM Interpretation: Performing Lab: Notes/Report: [facility] , Sodium 139 136-145 mmol/L Potassium 4.4 3.5-5.1 mmol/L Chloride 103 98-107 mmol/L Carbon Dioxide 21.6 21.0-32.0 mmol/L Anion Gap 18.8 Glucose 202 74-106 mg/dL Blood Urea Nitrogen 27.0 7.0-18.0 mg/dL Creatinine 1.58 0.70-1.30 mg/dL Estimated GFR ( Vira 51 >=60 mL/min/1.73m 2 Estimated GFR (Non- Coleen 42 >=60 mL/min/1.73m 2 BUN Creatinine Ratio 17.1 Calcium 9.5 8.5-10.1 mg/dL Bilirubin Total 0.6 0.2-1.0 mg/dL Aspartate Amino Transferase 20 15-37 U/L Alanine Aminotransferase 26 16-63 U/L Alkaline Phosphatase 104 46-116 U/L Total Protein 6.9 6.4-8.2 g/dL Albumin Level 3.4 3.4-5.0 g/dL Globulin 3.5 Albumin Globulin Ratio 1.0 Performing Lab: see note ML - [facility] LB CBC AUTO DIFF Reviewed date:08/17/2024 08:52:06 PM Interpretation: Performing Lab: Notes/Report: [facility] , White Blood Count 9.3 4.0-11.0 10 3/uL Red Blood Count 4.94 4.70-6.10 10 6/uL Hemoglobin 16.5 14.0-18.0 g/dL Hematocrit 50.3 42.0-54.0 % Mean Corpuscular Volume 101.8 80.0-94.0 fL Mean Corpuscular Hemoglobin 33.4 25.9-34.0 pg Mean Corpuscular HGB Conc 32.8 29.9-35.2 g/dL Red Cell Distribution Width 14.5 11.0-15.0 % Platelet Count 203 150-450 10 3/uL Mean Platelet Volume 11.6 9.5-13.5 fL Neutrophils Percent Auto 75.3 43.0-75.0 % Lymphocytes Percent Auto 12.4 20.5-60.0 % Monocytes Percent Auto 8.7 1.7-12.0 % Eosinophils Percent Auto 2.9 0.9-7.0 % Basophils Percent Auto 0.3 0.2-2.0 % Immature Granulocytes Pct Auto 0.4 0.0-0.5 % Neutrophils Absolute Auto 7.0 1.4-6.5 10 3/uL Lymphocytes Absolute Auto 1.2 1.2-3.8 10 3/uL Monocytes Absolute Auto 0.8 0.3-0.8 10 3/uL Eosinophils Absolute Auto 0.3 0.0-0.7 10 3/uL Basophils Absolute Auto 0.0 0.0-0.1 10 3/uL Immature Granulocytes Abs Auto 0.04 0.00-0.03 10 3/uL Performing Lab: see note ML - [facility] LB CT head/brain wo con Reviewed date:08/16/2024 09:49:03 PM Interpretation: Performing Lab: Notes/Report: Source Facility: [facility]-[address] [place] [address] [place] [address] CT Scan Report Signed Patient: NADIR HEREDIA MR#: [id number] : 1940 Acct:[id number] Age/Sex: 84 / M ADM Date: 08/16/24 Loc: ER Attending Dr: Ordering Physician: Lotus Ace D.O. Date of Service: 08/16/24 Procedure(s): CT head/brain wo con Accession Number(s): [id number] cc: Van Sung M.D. [place] [id number] Patient Name: NADIR HEREDIA MRN: [id number] date: 1940 Sex: M Assigned Patient Location: ER Current Patient Location: ER Accession/Order Number: [id number] Exam Date: 08/16/2024 09:08 Report Date: 08/16/2024 09:22 At the request of: LOTUS ACE Procedure: CT head/brain wo con EXAM: CT head/brain wo con HISTORY: ams COMPARISON: None. TECHNIQUE: Axial soft tissue and bone windows through the calvarium with coronal and sagittal reformats. CT dose reduction technique was used including Automated Exposure Control. Findings: No extra-axial fluid collection. No intra-axial or extra-axial bleed. No mass effect or midline shift. The thompson-white matter differentiation is preserved. There are white matter low attenuation which are nonspecific but commonly attributed to chronic small vessel ischemic disease. The brain parenchymal volume is reduced yet likely age-appropriate. The ventricles are nondilated. The basal cisterns are patent. The craniovertebral junction is unremarkable. CT/CT head/brain wo con IMPRESSION: 1. No acute intracranial abnormality. MRI is more sensitive for the evaluation of acute ischemia. 2. Senescent changes. Electronically authenticated by: WERNER FERNANDEZ Date: 08/16/2024 09:22 Dictated By: Werner Fernandez M.D. Signed By: 08/16/24924 DD/ 1 TD/TT: [facility] [employer]: [place] [address] CT Scan Report Signed Patient: NADIR HEREDIA MR#: [id number] : 1940 Acct:[id number] Age/Sex: 84 / M ADM Date: 08/16/24 Loc: ER Attending Dr: Ordering Physician: Lotus Ace D.O. Date of Service: 08/16/24 Procedure(s): CT head/brain wo con Accession Number(s): [id number] cc: Van Sung M.D. [place] [address] Patient Name: NADIR HEREDIA MRN: [facility]:[id number] date: 1940 Sex: M Assigned Patient Location: ER Current Patient Loca tion: ER Accession/Order Numb er: [id number] Exam Date: 09:08 Report Date: 08/16/2024 09:22 At the request of: LOTUS ACE Procedure: CT head/b rain wo con EXAM: CT head/brain wo con HISTORY: ams COMPARISON: None. TECHNIQUE: Axial sof t tissue and bone windows through the calvarium with coronal and sagittal reformats. CT dose reduction technique was used including Automated Exposure Control. Findings: No extra-axial fluid collection. No intra-axial or extra-axial bleed. No mass effect or midline sh ift. The thompson-white matter differentiation is preserved. There are white leatha er low attenuation which are nonspecific but commonly attributed to chroni c small vessel ischemic disease. The brain parenchymal volume is reduced ye t likely age-appropriate. The ventricles are nondilated. The basal cisterns a re patent. The craniovertebral junction is unremarkable. C T/CT head/brain wo con IMPRESSION: 1. No acute intracra nial abnormality. MRI is more sensitive for the evaluation of acute ischemia. 2. Senescent changes. Electronically authenticated by: WERNER FERNANDEZ Date: 08/16/2024 09:22 Dictated By: Werner Fernandez M.D. Signed By: 08/16/24924 DD/ 1 TD/TT: [facility] [employer] [facility]: ECG 12 lead Reviewed date:08/19/2024 09:36:11 PM Interpretation: Performing Lab: Notes/Report: Source Facility: [facility]-[address] [place] [address] [place] [address] Electrocardiograph Report Signed Patient: NADIR HEREDIA MR#: [id number] : 1940 Acct:[id number] Age/Sex: 84 / M ADM Date: 08/16/24 Loc: [place] 217-[address]: Van Sung M.D. Ordering Physician: Lotus Ace D.O. 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: : 1940 Requested By: VAN SUNG Order Number: [id number] Reading MD: VAN SUNG Measurements Intervals [place] Rate: 63 P: -90503 MI: -68556 QRS: 4 QRSD: 102 T: 40 QT: 420 QTc: 427 Interpretive Statements 1210 Atrial fibrillation 3333 Anterolateral myocardial infarction, probably old 3433 Septal myocardial infarction, probably old 7300 Indeterminate axis 9150 abnormal ECG Compared to ECG 10/10/2023 06:55:21 Indeterminate axis now present ST (T wave) deviation no longer present Myocardial infarct finding still present Electronically Signed On 08-18-2024 6:48:37 EDT by VAN SUNG Dictated By: Van Sung M.D. Signed By: 08/18/24 0649 DD/ 0902 TD/TT: [facility] [employer] [facility]: [place] [address] Electrocardiograph Report Signed Patient: NADIR HEREDIA MR#: [id number] : 1940 Acct:[id number] Age/Sex: 84 / M ADM Date: 08/16/24 Loc: [place] 217-[address]: Gama Sung M.D. Ordering Physician: Lotus Ace D.O. 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 Cut Off Saw Operator: : 1940 Requ ested By: VAN SUNG Order Number: [id number] Reading MD: VAN SUNG Measurements Intervals [place] Rate: 63 P: -17710 MI: -42098 QRS: 4 QRSD: 102 T: 40 QT: 420 QTc: 427 Interpretive Statements 1210 Atrial fibrillation 3333 Anterolateral myocardial infarction, probably old 3433 Septal myocardi al infarction, probably old 7300 Indeterminate axis 9150 abnormal ECG Compared to ECG 10/10/2023 06:55:21 Indeterminate axis n ow present ST (T wave) deviatio n no longer present Myocardial infarct finding still present Electronically Rosenda d On 08-18-2024 6:48:37 EDT by VAN SUNG Dictated By: José Miguel Sung M.D. Signed By: 08/18/2449 DD/ 1 TD/TT: [facility] [employer] [facility]: SARS-CoV-2 Ag* Reviewed date:08/16/2024 09:49:03 PM Interpretation: Performing Lab: Notes/Report: [facility] , SARS-CoV-2 Ag NEGATIVE NEGATIVE This test has not been FDA cleared or approved, but has been authorized by the FDA under an Emergency Use Authorization (EUA) for use by authorized laboratories certified under CLIA that meet the requirements to perform moderate or high complexity testing. This test has been authorized only for the detection of proteins from SARS-CoV-2, not for any other viruses or pathogens. The emergency use of this test is authorized for the duration of the declaration that circumstances exist justifying the authorization of emergency use of in vitro diagnostic tests for detection and/or diagnosis of Covid-19 under section 564(b)(1) of the Act, 21 U.S.C. 360bbb-3(b)(1), unless the declaration is terminated or authorization is revoked sooner. Performing Lab: see note ML - [facility] LB Troponin I High Sensitivity Reviewed date:08/16/2024 09:49:03 PM Interpretation: Performing Lab: Notes/Report: [facility] , Troponin I High Sensitivity 17.0 4.0-76.1 pg/mL CUT-OFF POINTS HAVE BEEN ESTABLISHED BASED ON THE FOURTH UNIVERSAL DEFINITION OF MYOCARDIAL INFARCTION. THE UPPER REFERENCE LIMIT (URL) OF TROPONIN, DEFINED THE 99TH PERCENTILE OF cTnI DISTRIBUTION IN A REFERENCE POPULATION, HAS BEEN CONFIRMED THE DECISION THRESHOLD FOR AR DIAGNOSIS. 99TH PERCENTILE = 76.2 PG/ML NOTE: HIGH-SENSITIVITY TROPONIN ASSAY IS NOT INTENDED TO BE USED IN ISOLATION BUT SHOULD BE INTERPRETED IN CONJUNCTION WITH OTHER DIAGNOSTIC AND CLINICAL INFORMATION. Performing Lab: see note ML - [facility] LB Prothrombin Time INR Reviewed date:08/16/2024 09:49:03 PM Interpretation: Performing Lab: Notes/Report: [facility] , Prothrombin Time 10.5 9.0-11.6 sec INR 0.99 DESIRED INR: 2.0-3.0 CONDITIONS NOT LISTED BELOW 2.5-3.5 FOR PROSTHETIC HEART VALVE REPLACEMENT 2.5-3.5 RECURRENT THROMBOSIS Performing Lab: see note ML - [facility] LB Troponin I High Sensitivity Reviewed date:03/08/2025 07:11:26 PM Interpretation: Performing Lab: Notes/Report: [facility] , Troponin I High Sensitivity 13.2 4.0-76.1 pg/mL CUT-OFF POINTS HAVE BEEN ESTABLISHED BASED ON THE FOURTH UNIVERSAL DEFINITION OF MYOCARDIAL INFARCTION. THE UPPER REFERENCE LIMIT (URL) OF TROPONIN, DEFINED THE 99TH PERCENTILE OF cTnI DISTRIBUTION IN A REFERENCE POPULATION, HAS BEEN CONFIRMED THE DECISION THRESHOLD FOR AR DIAGNOSIS. 99TH PERCENTILE = 76.2 PG/ML NOTE: HIGH-SENSITIVITY TROPONIN ASSAY IS NOT INTENDED TO BE USED IN ISOLATION BUT SHOULD BE INTERPRETED IN CONJUNCTION WITH OTHER DIAGNOSTIC AND CLINICAL INFORMATION. Performing Lab: see note ML - [facility] LB Blood Culture 2 Reviewed date:08/21/2024 08:32:56 PM Interpretation: Performing Lab: Notes/Report: [facility] , Blood Culture 2 See Below For Report Blood Culture 2 NG5D NO GROWTH AT 5 DAYS. Performing Lab: see note ML - [facility] LB Blood Culture 1 Reviewed date:08/21/2024 08:32:56 PM Interpretation: Performing Lab: Notes/Report: [facility] , Blood Culture 1 See Below For Report Blood Culture 1 NG5D NO GROWTH AT 5 DAYS. Performing Lab: see note ML - [facility] LB UA (CLEAN or CATCH) TRANSPORTATION OFFICER or M ICRO IF IND. Reviewed date:08/16/2024 09:49:03 PM Interpretation: Performing Lab: Notes/Report: [facility] , Color Urine LT. YELLOW YELLOW Clarity Urine CLEAR CLEAR Specific [place] Urine 1.010 1.005-1.025 pH Urine 7.0 5.0-9.0 Protein Urine NEGATIVE NEG/TRACE mg/dL Glucose Urine UA >=1000 NEGATIVE mg/dL Bilirubin Urine NEGATIVE NEGATIVE Ketones Urine NEGATIVE NEGATIVE mg/dL Blood Urine NEGATIVE NEGATIVE Nitrite Urine NEGATIVE NEGATIVE Urobilinogen Urine 0.2 0.2-1.0 EU/dL Leukocyte Esterase Urine NEGATIVE NEGATIVE Urine Microscopic Indicated NO Performing Lab: see note ML - [facility] LB PROF 14(COMP METB) Reviewed date:08/16/2024 09:49:03 PM Interpretation: Performing Lab: Notes/Report: [facility] , Sodium 138 136-145 mmol/L Potassium 4.1 3.5-5.1 mmol/L Chloride 101 98-107 mmol/L Carbon Dioxide 26.9 21.0-32.0 mmol/L Anion Gap 14.2 Glucose 338 74-106 mg/dL Blood Urea Nitrogen 25.0 7.0-18.0 mg/dL Creatinine 1.71 0.70-1.30 mg/dL Estimated GFR ( Vira 46 >=60 mL/min/1.73m 2 Estimated GFR (Non- Coleen 38 >=60 mL/min/1.73m 2 BUN Creatinine Ratio 14.6 Calcium 9.4 8.5-10.1 mg/dL Bilirubin Total 0.6 0.2-1.0 mg/dL Aspartate Amino Transferase 15 15-37 U/L Alanine Aminotransferase 26 16-63 U/L Alkaline Phosphatase 108 46-116 U/L Total Protein 6.9 6.4-8.2 g/dL Albumin Level 3.5 3.4-5.0 g/dL Globulin 3.4 Albumin Globulin Ratio 1.0 Performing Lab: see note ML - [facility] LB CBC AUTO DIFF Reviewed date:08/16/2024 09:49:03 PM Interpretation: Performing Lab: Notes/Report: [facility] , White Blood Count 9.6 4.0-11.0 10 3/uL Red Blood Count 4.65 4.70-6.10 10 6/uL Hemoglobin 15.7 14.0-18.0 g/dL Hematocrit 47.8 42.0-54.0 % Mean Corpuscular Volume 102.8 80.0-94.0 fL Mean Corpuscular Hemoglobin 33.8 25.9-34.0 pg Mean Corpuscular HGB Conc 32.8 29.9-35.2 g/dL Red Cell Distribution Width 14.2 11.0-15.0 % Platelet Count 193 150-450 10 3/uL Mean Platelet Volume 11.4 9.5-13.5 fL Neutrophils Percent Auto 82.0 43.0-75.0 % Lymphocytes Percent Auto 8.0 20.5-60.0 % Monocytes Percent Auto 7.3 1.7-12.0 % Eosinophils Percent Auto 2.0 0.9-7.0 % Basophils Percent Auto 0.3 0.2-2.0 % Immature Granulocytes Pct Auto 0.4 0.0-0.5 % Neutrophils Absolute Auto 7.8 1.4-6.5 10 3/uL Lymphocytes Absolute Auto 0.8 1.2-3.8 10 3/uL Monocytes Absolute Auto 0.7 0.3-0.8 10 3/uL Eosinophils Absolute Auto 0.2 0.0-0.7 10 3/uL Basophils Absolute Auto 0.0 0.0-0.1 10 3/uL Immature Granulocytes Abs Auto 0.04 0.00-0.03 10 3/uL Performing Lab: see note ML - [facility] LB UA RANDOM W or MICROSCOPIC Reviewed date:08/06/2024 09:17:32 PM Interpretation: Performing Lab: Notes/Report: [facility] , Color Urine LT. YELLOW YELLOW Clarity Urine CLEAR CLEAR Specific [place] Urine 1.010 1.005-1.025 pH Urine 7.0 5.0-9.0 Protein Urine NEGATIVE NEG/TRACE mg/dL Glucose Urine UA >=1000 NEGATIVE mg/dL Bilirubin Urine NEGATIVE NEGATIVE Ketones Urine NEGATIVE NEGATIVE mg/dL Blood Urine TRACE-I NEGATIVE Nitrite Urine NEGATIVE NEGATIVE Urobilinogen Urine 0.2 0.2-1.0 EU/dL Leukocyte Esterase Urine NEGATIVE NEGATIVE WBC Urine NONE SEEN NONE SEEN #/HPF RBC Urine 0-2 0-2 #/HPF Bacteria Urine NONE SEEN NONE SEEN #/HPF Mucus Urine NONE SEEN NONE SEEN Squamous Epithelial Cell Urine NONE SEEN NONE/RARE #/LPF Crystals Seen? None Seen None Seen #/HPF Cast Seen? NONE SEEN NONE SEEN #/LPF Performing Lab: see note ML - [facility] LB PROF CHEM 8 (BAS METB) Reviewed date:08/06/2024 09:17:32 PM Interpretation: Performing Lab: Notes/Report: [facility] , Sodium 138 136-145 mmol/L Potassium 4.0 3.5-5.1 mmol/L Chloride 102 98-107 mmol/L Carbon Dioxide 28.4 21.0-32.0 mmol/L Anion Gap 11.6 Glucose 245 74-106 mg/dL Blood Urea Nitrogen 27.0 7.0-18.0 mg/dL Creatinine 1.56 0.70-1.30 mg/dL Estimated GFR ( Vira 52 >=60 Estimated GFR (Non- Coleen 43 >=60 BUN Creatinine Ratio 17.3 Calcium 9.1 8.5-10.1 mg/dL Performing Lab: see note ML - [facility] LB CBC AUTO DIFF Reviewed date:08/06/2024 09:17:32 PM Interpretation: Performing Lab: Notes/Report: [facility] , White Blood Count 7.9 4.0-11.0 10 3/uL Red Blood Count 4.51 4.70-6.10 10 6/uL Hemoglobin 15.2 14.0-18.0 g/dL Hematocrit 45.5 42.0-54.0 % Mean Corpuscular Volume 100.9 80.0-94.0 fL Mean Corpuscular Hemoglobin 33.7 25.9-34.0 pg Mean Corpuscular HGB Conc 33.4 29.9-35.2 g/dL Red Cell Distribution Width 13.9 11.0-15.0 % Platelet Count 189 150-450 10 3/uL Mean Platelet Volume 11.7 9.5-13.5 fL Neutrophils Percent Auto 78.6 43.0-75.0 % Lymphocytes Percent Auto 10.2 20.5-60.0 % Monocytes Percent Auto 8.2 1.7-12.0 % Eosinophils Percent Auto 2.0 0.9-7.0 % Basophils Percent Auto 0.5 0.2-2.0 % Immature Granulocytes Pct Auto 0.5 0.0-0.5 % Neutrophils Absolute Auto 6.2 1.4-6.5 10 3/uL Lymphocytes Absolute Auto 0.8 1.2-3.8 10 3/uL Monocytes Absolute Auto 0.6 0.3-0.8 10 3/uL Eosinophils Absolute Auto 0.2 0.0-0.7 10 3/uL Basophils Absolute Auto 0.0 0.0-0.1 10 3/uL Immature Granulocytes Abs Auto 0.04 0.00-0.03 10 3/uL Performing Lab: see note ML - [facility] LB URINE T PROTEIN CREAT RATIO Reviewed date:06/19/2024 07:43:22 PM Interpretation: Performing Lab: Notes/Report: [facility] , Total Protein Urine Random 7.8 <=11.9 mg/dL Creatinine Urine Random 53.15 20.00-30 0.00 mg/dL Protein Creatinine Ratio Urine 0.15 Performing Lab: see note - [facility] LB PROF CHEM 8 (BAS METB) Reviewed date:06/19/2024 07:43:22 PM Interpretation: Performing Lab: Notes/Report: [facility] , Sodium 145 136-145 mmol/L Potassium 4.1 3.5-5.1 mmol/L Chloride 107 98-107 mmol/L Carbon Dioxide 29.8 21.0-32.0 mmol/L Anion Gap 12.3 Glucose 226 74-106 mg/dL Blood Urea Nitrogen 32.0 7.0-18.0 mg/dL Creatinine 1.62 0.70-1.30 mg/dL Estimated GFR ( Vira 49 >=60 Estimated GFR (Non- Coleen 41 >=60 BUN Creatinine Ratio 19.8 Calcium 9.2 8.5-10.1 mg/dL Performing Lab: see note ML - [facility] LB HEMOGLOBIN Reviewed date:06/19/2024 07:43:22 PM Interpretation: Performing Lab: Notes/Report: [facility] , Hemoglobin 15.3 14.0-18.0 g/dL Performing Lab: see note - [facility] LB CA echo doppler complete Reviewed date:06/11/2024 11:52:26 AM Interpretation: Performing Lab: Notes/Report: Source Facility: [facility] [place] [address] [place] [address] Cardiology Report Signed Patient: NADIR HEREDIA MR#: [id number] : 1940 Acct:[id number] Age/Sex: 84 / M ADM Date: 06/09/24 Loc: CARD Attending Dr: CLARIBEL PUGA Ordering Physician: CLARIBEL PUGA Date of Service: 06/09/24 Procedure(s): CA echo doppler complete Accession Number(s): [id number] cc: Van Sung M.D.; CLARIBEL PUGA Patient Name: NADIR HEREDIA MR#: [id number] : 1940 Exam Date: 06/09/2024 Ordering Doctor: DR CLARIBEL PUGA M.D. ECHOCARDIOGRAM REPORT PROCEDURE: CA ECHO DOPPLER COMPLETE INDICATIONS: Aortic valve stenosis, pericardial effusion, COMPARISON: None. DESCRIPTION: COMPLETE ECHOCARDIOGRAM Real-time transthoracic echocardiography with 2D, M-mode, spectral and color flow Doppler performed. QUALITY: Technical quality was good. LEFT VENTRICLE: Normal chamber size. Mildly increased left ventricular wall thickness. Sigmoid septum LV EF: Global left ventricular systolic function is hyperdynamic; visually estimated ejection fraction is 65 to 70%. No obvious wall motion abnormalities. DIASTOLIC: Unable to assess diastolic function. ATRIAL SEPTUM: Visually appears intact. LEFT ATRIUM: Severe dilatation. RIGHT ATRIUM: Severe dilatation. A prominent Eustachian valve (normal variant) is seen. RIGHT VENTRICLE: Mild dilatation. Normal right ventricular systolic function. TRICUSPID VALVE: Normal mobility and thickness. No stenosis with mild regurgitation. Doppler studies reveal severely (>60) elevated right sided pressures. RVSP 64 mmHg MITRAL VALVE: Normal mobility and thickness. No evidence of mitral valve stenosis. Mild mitral annular calcification. Trivial mitral regurgitation. AORTIC VALVE: Normal trileaflet appearance. Moderate calcification. Doppler velocity suggests mild aortic stenosis. Trivial aortic regurgitation. AORTIC ROOT: Normal diameter and appearance. Ascending aorta and aortic arch are normal in size. PULMONIC VALVE: Normal thickness and mobility. No stenosis. Mild regurgitation. PERICARDIUM: There is a trivial to small anterior, and moderate posterior pericardial effusion. No obvious chamber compression is seen. Tricuspid inflow velocities are equivocal for respiratory variation IVC: Dilated IVC with no collapse. CONCLUSION: 1. Global left ventricular systolic function is hyperdynamic; visually estimated ejection fraction is 65 to 70% 2. The right ventricle is mildly dilated with normal systolic function 3. Severe biatrial enlargement 4. Mildly increased left ventricular wall thickness 5. Mild tricuspid regurgitation 6. Severely elevated right ventricular systolic pressure; RVSP 64 mmHg 7. Mild aortic valve stenosis 8. Mild pulmonic regurgitation 9. There is a trivial to small anterior and moderate posterior pericardial effusion with no convincing signs of tamponade physiology Adult Echocardiography Procedure Report Left Ventricle LVEDD (3.7 - 5.6 cm): 4.10 cm LVESD (2.2 - 4.0 cm): 3.23 cm LVIVS thickness (0.6 - 1.2 cm): 1.76 cm LVPW thickness (0.5 - 1.0 cm): 1.22 cm LVOT Max Gradient: 2.27 mm[Hg] LVOT Area (cm2): 0.75 m/s Peak Velocity (LVOT): 0.75 m/s Mean Velocity (LVOT): 0.51 m/s LVOT Diameter 2.28 cm Left Atrium LA Volume Index (2D A2C): 55.58 ml/m2 Left Atrium Systolic Dimension: 5.91 cm Mitral Valve MV E to A Ratio: 4.49 Mitral Valve A-Wave Peak Velocity: 0.20 m/s Mitral Valve E-Wave Peak Velocity: 0.88 m/s Right Ventricle Aorta AO Root Diam: 3.29 cm Ascending Ao Diam: 3.33 cm Aortic Valve AoV Area (Peak Kyle): 1.28 cm2, 1.61 cm2 AoV Area (VTI): 1.32 cm2, 1.82 cm2 Peak Velocity(Antegrade Flow): 1.90 m/s, 2.40 m/s, 2.32 m/s Peak Gradient(Antegrade Flow): 14.49 mm[Hg], 23.01 mm[Hg], 21.59 mm[Hg] Mean Velocity(Antegrade Flow): 1.15 m/s, 1.46 m/s, 1.44 m/s Mean Gradient(Antegrade Flow): 6.25 mm[Hg], 10.42 mm[Hg], 10.14 mm[Hg] Velocity Time Integral: 40.29 cm, 52.84 cm, 55.72 cm Tricuspid Valve Peak Velocity (Regurgitant Flow): 3.49 m/s Pulmonic Valve Peak Velocity: 0.81 m/s Peak Gradient: 2.61 mm[Hg] Right Atrium Right Atrium Systolic Pressure: 105.81 ml, 105.81 ml Dictated by: Rohini Traylor M.D. on 06/09/2024 at 15:04 Approved by: Rohini Traylor M.D. on 06/09/2024 at 15:15 Dictated By: Rohini Traylor M.D. Signed By: 06/09/24 1516 DD/ 1515 TD/TT: [employer]: [place] [address] Cardiology Report Signed Patient: NADIR HEREDIA MR#: [id number] : 1940 Acct:[id number] Age/Sex: 84 / M ADM Date: 06/09/24 Loc: CARD Attending Dr: CLARIBEL PUGA Ordering Physician: CLARIBEL PUGA Date of Service: 06/09/24 Procedure(s): CA ech o doppler complete Accession Number(s): [id number] cc: Van Sung M.D. ; CLARIBEL PUGA Patient Name: NADIR HEREDIA MR#: [id number] : 1940 Exam Date: 06/09/2024 Ordering Doctor: DR CLARIBEL PUGA M.D. ECHOCARDIOGRAM REPORT PROCEDURE: CA ECHO DOPPLER COMPLETE INDICATIONS: Aortic valve stenosis, pericardial effusion, COMPARISON: None. DESCRIPTION: COMPLET E ECHOCARDIOGRAM Real-time transthoracic echocardiography wit h 2D, M-mode, spectral and color flow Doppler performed. QUALITY: Technical quality was good. LEFT VENTRICLE: Norm al chamber size. Mildly increased left ventricular wall thickness. Sigm oid septum LV EF: Global left ventricular systolic function is hyperdynamic; visually estimated ejection fraction is 65 to 70%. No obvious wall motion abnormalities. DIASTOLIC: Unable to assess diastolic function. ATRIAL SEPTUM: Visua lly appears intact. LEFT ATRIUM: Severe dilatation. RIGHT ATRIUM: Severe dilatation. A prominent Eustachian valve (normal variant) is seen. RIGHT VENTRICLE: Mil d dilatation. Normal right ventricular systolic function. TRICUSPID VALVE: Nor mal mobility and thickness. No stenosis with mild regurgitation. Doppl er studies reveal severely (>60) elevated right sided pressures. RVSP 64 mmHg MITRAL VALVE: Normal mobility and thickness. No evidence of mitral valve stenosis. Mild francis l annular calcification. Trivial mitral regurgitation. AORTIC VALVE: Normal trileaflet appearance. Moderate calcification. Doppler velocity sug gests mild aortic stenosis. Trivial aortic regurgitation. AORTIC ROOT: Normal diameter and appearance. Ascending aorta and aortic arch are normal in size. PULMONIC VALVE: Norm al thickness and mobility. No stenosis. Mild regurgitation. PERICARDIUM: There i s a trivial to small anterior, and moderate posterior pericardial effusion . No obvious chamber compression is seen. Tricuspid inflow velocities ar e equivocal for respiratory variation IVC: Dilated IVC wit h no collapse. CONCLUSION: 1. Global left ventricular systolic function is hyperdynamic; visually estimated ejection fraction is 65 to 70% 2. The right ventric le is mildly dilated with normal systolic function 3. Severe biatrial enlargement 4. Mildly increased left ventricular wall thickness 5. Mild tricuspid regurgitation 6. Severely elevated right ventricular systolic pressure; RVSP 64 mmHg 7. Mild aortic valve stenosis 8. Mild pulmonic regurgitation 9. There is a trivia l to small anterior and moderate posterior pericardial effusion with no convincing signs of tamponade physiology Adult Echocardiograp hy Procedure Report Left Ventricle LVEDD (3.7 - 5.6 cm) : 4.10 cm LVESD (2.2 - 4.0 cm) : 3.23 cm LVIVS thickness (0.6 - 1.2 cm): 1.76 cm LVPW thickness (0.5 - 1.0 cm): 1.22 cm LVOT Max Gradient: 2 .27 mm[Hg] LVOT Area (cm2): 0.75 m/s Peak Velocity (LVOT) : 0.75 m/s Mean Velocity (LVOT) : 0.51 m/s LVOT Diameter 2.28 cm Left Atrium LA Volume Index (2D A2C): 55.58 ml/m2 Left Atrium Systolic Dimension: 5.91 cm Mitral Valve MV E to A Ratio: 4.49 Mitral Valve A-Wave Peak Velocity: 0.20 m/s Mitral Valve E-Wave Peak Velocity: 0.88 m/s Right Ventricle Aorta AO Root Diam: 3.29 cm Ascending Ao Diam: 3 .33 cm Aortic Valve AoV Area (Peak Kyle): 1.28 cm2, 1.61 cm2 AoV Area (VTI): 1.32 cm2, 1.82 cm2 Peak Velocity(Antegr leela Flow): 1.90 m/s, 2.40 m/s, 2.32 m/s Peak Gradient(Antegr leela Flow): 14.49 mm[Hg], 23.01 mm[Hg], 21.59 mm[Hg] Mean Velocity(Antegr leela Flow): 1.15 m/s, 1.46 m/s, 1.44 m/s Mean Gradient(Antegr leela Flow): 6.25 mm[Hg], 10.42 mm[Hg], 10.14 mm[Hg] Velocity Time Integr al: 40.29 cm, 52.84 cm, 55.72 cm Tricuspid Valve Peak Velocity (Regurgitant Flow): 3.49 m/s Pulmonic Valve Peak Velocity: 0.81 m/s Peak Gradient: 2.61 mm[Hg] Right Atrium Right Atrium Systoli c Pressure: 105.81 ml, 105.81 ml Dictated by: Rohini Traylor M.D. on 06/09/2024 at 15:04 Approved by: Rohini Traylor M.D. on 06/09/2024 at 15:15 Dictated By: Rohini Traylor M.D. Signed By: 06/09/24 1516 DD/ 1515 TD/TT: [employer]: URINE T PROTEIN CREAT RATIO Reviewed date:05/23/2024 03:36:41 PM Interpretation: Performing Lab: Notes/Report: [facility] , Total Protein Urine Random <6.0 <=11.9 mg/dL Creatinine Urine Random 14.95 20.00-30 0.00 mg/dL Protein Creatinine Ratio Urine 0.40 Performing Lab: see note ML - [facility] LB PROF CHEM 8 (BAS METB) Reviewed date:05/23/2024 03:36:41 PM Interpretation: Performing Lab: Notes/Report: [facility] , Sodium 144 136-145 mmol/L Potassium 4.0 3.5-5.1 mmol/L Chloride 105 98-107 mmol/L Carbon Dioxide 31.6 21.0-32.0 mmol/L Anion Gap 11.4 Glucose 228 74-106 mg/dL Blood Urea Nitrogen 24.0 7.0-18.0 mg/dL Creatinine 1.51 0.70-1.30 mg/dL Estimated GFR ( Vira 54 >=60 Estimated GFR (Non- Coleen 44 >=60 BUN Creatinine Ratio 15.9 Calcium 8.8 8.5-10.1 mg/dL Performing Lab: see note ML - [facility] LB PHOSPHORUS Reviewed date:05/23/2024 03:36:41 PM Interpretation: Performing Lab: Notes/Report: [facility] , Phosphorus 4.1 2.6-4.7 mg/dL Performing Lab: see note ML - [facility] LB MAGNESIUM Reviewed date:05/23/2024 03:36:41 PM Interpretation: Performing Lab: Notes/Report: [facility] , Magnesium 2.2 1.8-2.4 mg/dL Performing Lab: see note ML - [facility] LB HEMOGLOBIN Reviewed date:05/23/2024 03:36:41 PM Interpretation: Performing Lab: Notes/Report: [facility] , Hemoglobin 15.0 14.0-18.0 g/dL Performing Lab: see note ML - [facility] LB ALBUMIN Reviewed date:05/23/2024 03:36:41 PM Interpretation: Performing Lab: Notes/Report: [facility] , Albumin Level 3.3 3.4-5.0 g/dL Performing Lab: see note ML - [facility] LB BNP Reviewed date:01/18/2025 09:02:22 PM Interpretation: Performing Lab: Notes/Report: [facility] , NT Pro B Type Natriuretic Pept 5.0 <=1800.0 pg/mL RESULTS CALLED TO cynthia valenzuela lpn @BY Cecilia Elder at 1158 Performing Lab: see note ML - [facility] LB AMMONIA Reviewed date:01/18/2025 09:02:22 PM Interpretation: Performing Lab: Notes/Report: [facility] , Ammonia <10 11-32 umol/L Performing Lab: see note ML - [facility] LB Result 1 Reviewed date:01/25/2025 07:33:24 PM Interpretation: Performing Lab: Notes/Report: [facility] , Result 1 See Below For Report Result 1 Few gram positive cocci Performing Lab: see note LC - [facility] LB Epithelial Cells Reviewed date:01/25/2025 07:33:24 PM Interpretation: Performing Lab: Notes/Report: [facility] , Epithelial Cells See Below For Report Epithelial Cells Few Performing Lab: see note LC - [facility] LB White Blood Cells Reviewed date:01/25/2025 07:33:24 PM Interpretation: Performing Lab: Notes/Report: [facility] , White Blood Cells See Below For Report White Blood Cells White Blood Cells None seen White Blood Cells Performing Lab: see note LC - [facility] LB TSH Reviewed date:01/18/2025 09:02:22 PM Interpretation: Performing Lab: Notes/Report: [facility] , Thyroid Stimulating Hormone 1.472 0.358-3.740 uIU/mL Performing Lab: see note ML - [facility] LB T4 Reviewed date:01/18/2025 09:02:22 PM Interpretation: Performing Lab: Notes/Report: [facility] , T4 Thyroxine 7.00 4.50-12.10 ug/dL Performing Lab: see note - [facility] PROF 14(COMP METB) Reviewed date:01/18/2025 09:02:22 PM Interpretation: Performing Lab: Notes/Report: [facility] , Sodium 142 136-145 mmol/L Potassium 4.5 3.5-5.1 mmol/L Chloride 105 98-107 mmol/L Carbon Dioxide 27.5 21.0-32.0 mmol/L Anion Gap 14.0 Glucose 260 74-106 mg/dL Blood Urea Nitrogen 29.0 7.0-18.0 mg/dL Creatinine 1.60 0.70-1.30 mg/dL Estimated GFR ( Vira 50 >=60 mL/min/1.73m 2 Estimated GFR (Non- Coleen 41 >=60 mL/min/1.73m 2 BUN Creatinine Ratio 18.1 Calcium 8.9 8.5-10.1 mg/dL Bilirubin Total 0.3 0.2-1.0 mg/dL Aspartate Amino Transferase 13 15-37 U/L Alanine Aminotransferase 21 16-63 U/L Alkaline Phosphatase 89 46-116 U/L Total Protein 6.7 6.4-8.2 g/dL Albumin Level 3.3 3.4-5.0 g/dL Globulin 3.4 Albumin Globulin Ratio 1.0 Performing Lab: see note ML - [facility] FREE T3 Reviewed date:01/18/2025 09:02:22 PM Interpretation: Performing Lab: Notes/Report: [facility] , Free T3 2.15 2.18-3.98 pg/mL Performing Lab: see note ML - [facility] LB CBC AUTO DIFF Reviewed date:01/18/2025 09:02:22 PM Interpretation: Performing Lab: Notes/Report: [facility] , White Blood Count 9.0 4.0-11.0 10 3/uL Red Blood Count 3.86 4.70-6.10 10 6/uL Hemoglobin 11.6 14.0-18.0 g/dL Hematocrit 37.4 42.0-54.0 % Mean Corpuscular Volume 96.9 80.0-94.0 fL Mean Corpuscular Hemoglobin 30.1 25.9-34.0 pg Mean Corpuscular HGB Conc 31.0 29.9-35.2 g/dL Red Cell Distribution Width 16.0 11.0-15.0 % Platelet Count 242 150-450 10 3/uL Mean Platelet Volume 11.5 9.5-13.5 fL Neutrophils Percent Auto 79.2 43.0-75.0 % Lymphocytes Percent Auto 9.0 20.5-60.0 % Monocytes Percent Auto 8.1 1.7-12.0 % Eosinophils Percent Auto 2.8 0.9-7.0 % Basophils Percent Auto 0.6 0.2-2.0 % Immature Granulocytes Pct Auto 0.3 0.0-0.5 % Neutrophils Absolute Auto 7.1 1.4-6.5 10 3/uL Lymphocytes Absolute Auto 0.8 1.2-3.8 10 3/uL Monocytes Absolute Auto 0.7 0.3-0.8 10 3/uL Eosinophils Absolute Auto 0.3 0.0-0.7 10 3/uL Basophils Absolute Auto 0.1 0.0-0.1 10 3/uL Immature Granulocytes Abs Auto 0.03 0.00-0.03 10 3/uL Performing Lab: see note ML - [facility] LB VITAMIN D 25 OH Reviewed date:12/24/2024 11:26:08 AM Interpretation: Performing Lab: Notes/Report: [facility] , Vitamin D 19.7 <20 ng/mL Vit D deficient 20-<30 ng/mL Vit D insufficient 30-100 ng/mL Vit D sufficient >100 ng/mL Potential Toxicity Performing Lab: see note ML - [facility] LB Result 2 Reviewed date:01/25/2025 07:33:24 PM Interpretation: Performing Lab: Notes/Report: [facility] , Result 2 See Below For Report Result 2 Rare gram positive rods Performing Lab: see note LC - [facility] LB Result 3 Reviewed date:01/25/2025 07:33:24 PM Interpretation: Performing Lab: Notes/Report: [facility] , Result 3 See Below For Report Result 3 *ABNORMAL* Result 3 Rare gram negative rods. 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 Gram Stain Evaluation This specimen is of good quality and is acceptable for routine Performing Lab: see note LC - [facility] LB Lower Respiratory Culture Reviewed date:01/25/2025 07:33:24 PM Interpretation: Performing Lab: Notes/Report: [facility] , Lower Respiratory Culture See Below For Report Lower Respiratory Culture WILL FOLLOW Lower Respiratory Culture Routine respiratory shreya Lower Respiratory Culture WILL FOLLOW Lower Respiratory Culture Performed at: [facility] Lower Respiratory Culture WILL FOLLOW Lower Respiratory Culture [address] [place] [phone] Lower Respiratory Culture WILL FOLLOW Lower Respiratory Culture Pipe Bowls Paint Trimmer: Asael Pressley PhD, Phone: [phone] Lower Respiratory Culture WILL FOLLOW Performing Lab: see note LC - [facility] LB SEE REPORT - Php Website Developer Id information not found for OBX-specific news producer legend BNP Reviewed date:02/14/2025 07:52:08 PM Interpretation: Performing Lab: Notes/Report: [facility] , NT Pro B Type Natriuretic Pept 1616.0 <=1800.0 pg/mL Performing Lab: see note - [facility] LB CBC AUTO DIFF Reviewed date:02/14/2025 07:52:08 PM Interpretation: Performing Lab: Notes/Report: [facility] , White Blood Count 8.1 4.0-11.0 10 3/uL Red Blood Count 3.84 4.70-6.10 10 6/uL Hemoglobin 11.1 14.0-18.0 g/dL Hematocrit 34.6 42.0-54.0 % Mean Corpuscular Volume 90.1 80.0-94.0 fL Mean Corpuscular Hemoglobin 28.9 25.9-34.0 pg Mean Corpuscular HGB Conc 32.1 29.9-35.2 g/dL Red Cell Distribution Width 16.6 11.0-15.0 % Platelet Count 229 150-450 10 3/uL Mean Platelet Volume 11.6 9.5-13.5 fL Neutrophils Percent Auto 81.1 43.0-75.0 % Lymphocytes Percent Auto 8.4 20.5-60.0 % Monocytes Percent Auto 7.6 1.7-12.0 % Eosinophils Percent Auto 2.0 0.9-7.0 % Basophils Percent Auto 0.4 0.2-2.0 % Immature Granulocytes Pct Auto 0.5 0.0-0.5 % Neutrophils Absolute Auto 6.6 1.4-6.5 10 3/uL Lymphocytes Absolute Auto 0.7 1.2-3.8 10 3/uL Monocytes Absolute Auto 0.6 0.3-0.8 10 3/uL Eosinophils Absolute Auto 0.2 0.0-0.7 10 3/uL Basophils Absolute Auto 0.0 0.0-0.1 10 3/uL Immature Granulocytes Abs Auto 0.04 0.00-0.03 10 3/uL Performing Lab: see note ML - [facility] LB PROF CHEM 8 (BAS METB) Reviewed date:10/31/2024 12:23:54 PM Interpretation: Performing Lab: Notes/Report: [facility] , Sodium 140 136-145 mmol/L Potassium 4.6 3.5-5.1 mmol/L Chloride 104 98-107 mmol/L Carbon Dioxide 25.1 21.0-32.0 mmol/L Anion Gap 15.5 Glucose 202 74-106 mg/dL Blood Urea Nitrogen 30.0 7.0-18.0 mg/dL Creatinine 1.69 0.70-1.30 mg/dL Estimated GFR ( Vira 47 >=60 mL/min/1.73m 2 Estimated GFR (Non- Coleen 39 >=60 mL/min/1.73m 2 BUN Creatinine Ratio 17.8 Calcium 8.3 8.5-10.1 mg/dL Performing Lab: see note ML - [facility] LB CBC AUTO DIFF Reviewed date:10/31/2024 12:23:54 PM Interpretation: Performing Lab: Notes/Report: [facility] , White Blood Count 11.9 4.0-11.0 10 3/uL Red Blood Count 3.06 4.70-6.10 10 6/uL Hemoglobin 10.5 14.0-18.0 g/dL Hematocrit 31.8 42.0-54.0 % Mean Corpuscular Volume 103.9 80.0-94.0 fL Mean Corpuscular Hemoglobin 34.3 25.9-34.0 pg Mean Corpuscular HGB Conc 33.0 29.9-35.2 g/dL Red Cell Distribution Width 14.6 11.0-15.0 % Platelet Count 196 150-450 10 3/uL Mean Platelet Volume 11.6 9.5-13.5 fL Neutrophils Percent Auto 74.6 43.0-75.0 % Lymphocytes Percent Auto 10.8 20.5-60.0 % Monocytes Percent Auto 11.8 1.7-12.0 % Eosinophils Percent Auto 1.7 0.9-7.0 % Basophils Percent Auto 0.3 0.2-2.0 % Immature Granulocytes Pct Auto 0.8 0.0-0.5 % Neutrophils Absolute Auto 8.9 1.4-6.5 10 3/uL Lymphocytes Absolute Auto 1.3 1.2-3.8 10 3/uL Monocytes Absolute Auto 1.4 0.3-0.8 10 3/uL Eosinophils Absolute Auto 0.2 0.0-0.7 10 3/uL Basophils Absolute Auto 0.0 0.0-0.1 10 3/uL Immature Granulocytes Abs Auto 0.09 0.00-0.03 10 3/uL Performing Lab: see note ML - [facility] LB DIRECT LDL Reviewed date:02/14/2025 07:52:08 PM Interpretation: Performing Lab: Notes/Report: [facility] , LDL Cholesterol Direct 120 <100 mg/dl OPTIMAL 100-129 mg/dl NEAR OR ABOVE OPTIMAL 130-159 mg/dl BORDERLINE HIGH 160-189 mg/dl HIGH >190 mg/dl VERY HIGH Performing Lab: see note ML - [facility] LB GLYCOHEMOGLOBIN A1C Reviewed date:02/14/2025 07:52:08 PM Interpretation: Performing Lab: Notes/Report: [facility] , Glycohemoglobin A1C 11.1 4.5-6.2 % ADA RECOMMENDED LIMIT 4.0 - 6.0 ADA THERAPEUTIC TARGET < 7.0 ACTION SUGGESTED > 7.0 Estimated Average Glucose 272 Performing Lab: see note ML - [facility] LB MAGNESIUM Reviewed date:02/14/2025 07:52:08 PM Interpretation: Performing Lab: Notes/Report: [facility] , Magnesium 2.0 1.8-2.4 mg/dL Performing Lab: see note - [facility] LB PROF 14(COMP METB) Reviewed date:02/14/2025 07:52:08 PM Interpretation: Performing Lab: Notes/Report: [facility] , Sodium 139 136-145 mmol/L Potassium 4.3 3.5-5.1 mmol/L Chloride 101 98-107 mmol/L Carbon Dioxide 28.0 21.0-32.0 mmol/L Anion Gap 14.3 Glucose 256 74-106 mg/dL Blood Urea Nitrogen 31.0 7.0-18.0 mg/dL Creatinine 1.77 0.70-1.30 mg/dL Estimated GFR ( Vira 44 >=60 mL/min/1.73m 2 Estimated GFR (Non- Coleen 37 >=60 mL/min/1.73m 2 BUN Creatinine Ratio 17.5 Calcium 9.0 8.5-10.1 mg/dL Bilirubin Total 0.4 0.2-1.0 mg/dL Aspartate Amino Transferase 14 15-37 U/L Alanine Aminotransferase 11 16-63 U/L Alkaline Phosphatase 92 46-116 U/L Total Protein 6.9 6.4-8.2 g/dL Albumin Level 3.4 3.4-5.0 g/dL Globulin 3.5 Albumin Globulin Ratio 1.0 Performing Lab: see note - [facility] LB UA (CLEAN or CATCH) TRANSPORTATION OFFICER or M ICRO IF IND. Reviewed date:02/14/2025 07:52:08 PM Interpretation: Performing Lab: Notes/Report: [facility] , Color Urine LT. YELLOW YELLOW Clarity Urine CLEAR CLEAR Specific [place] Urine 1.010 1.005-1.025 pH Urine 7.0 5.0-9.0 Protein Urine NEGATIVE NEG/TRACE mg/dL Glucose Urine UA >=1000 NEGATIVE mg/dL Bilirubin Urine NEGATIVE NEGATIVE Ketones Urine NEGATIVE NEGATIVE mg/dL Blood Urine NEGATIVE NEGATIVE Nitrite Urine NEGATIVE NEGATIVE Urobilinogen Urine 0.2 0.2-1.0 EU/dL Leukocyte Esterase Urine NEGATIVE NEGATIVE Urine Microscopic Indicated NO Performing Lab: see note ML - [facility] LB Prothrombin Time INR Reviewed date:02/14/2025 07:52:08 PM Interpretation: Performing Lab: Notes/Report: [facility] , Prothrombin Time 10.7 9.0-11.6 sec INR 1.01 DESIRED INR: 2.0-3.0 CONDITIONS NOT LISTED BELOW 2.5-3.5 FOR PROSTHETIC HEART VALVE REPLACEMENT 2.5-3.5 RECURRENT THROMBOSIS Performing Lab: see note ML - [facility] LB Troponin I High Sensitivity Reviewed date:02/14/2025 07:52:08 PM Interpretation: Performing Lab: Notes/Report: [facility] , Troponin I High Sensitivity 15.2 4.0-76.1 pg/mL CUT-OFF POINTS HAVE BEEN ESTABLISHED BASED ON THE FOURTH UNIVERSAL DEFINITION OF MYOCARDIAL INFARCTION. THE UPPER REFERENCE LIMIT (URL) OF TROPONIN, DEFINED THE 99TH PERCENTILE OF cTnI DISTRIBUTION IN A REFERENCE POPULATION, HAS BEEN CONFIRMED THE DECISION THRESHOLD FOR AR DIAGNOSIS. 99TH PERCENTILE = 76.2 PG/ML NOTE: HIGH-SENSITIVITY TROPONIN ASSAY IS NOT INTENDED TO BE USED IN ISOLATION BUT SHOULD BE INTERPRETED IN CONJUNCTION WITH OTHER DIAGNOSTIC AND CLINICAL INFORMATION. Performing Lab: see note ML - [facility] LB ECG 12 lead Reviewed date:02/14/2025 07:52:08 PM Interpretation: Performing Lab: Notes/Report: Source Facility: [facility]-[address] [place] [address] [place] [address] Electrocardiograph Report Signed Patient: NADIR HEREDIA MR#: [id number] : 1940 Acct:[id number] Age/Sex: 85 / M ADM Date: 02/14/25 Loc: MS 203-[address]: Van Sung M.D. Ordering Physician: Josie Astudillo Date of Service: 02/14/25 Procedure(s): ECG 12 lead Accession Number(s): [id number] cc: [facility] Test Date: 2025-02-14 Pat Name: NADIR HEREDIA Department: Room: - Gender: Male Table Cut Off Saw Operator: : 1940 Requested By: 1854 Order Number: [id number] Reading MD: CLARIBEL PUGA M.D. Measurements Intervals [place] Rate: 75 P: -30036 MI: -06867 QRS: -60 QRSD: 100 T: 68 QT: 406 QTc: 435 Interpretive Statements 1210 Atrial fibrillation 3433 Septal myocardial infarction, probably old 7200 Abnormal left axis deviation 9150 abnormal ECG Compared to ECG 09/08/2024 12:03:04 Left-axis deviation now present Aberrant conduction of supraventricular beat(s) no longer present Electronically Signed On 02-14-2025 17:28:44 EDT by CLARIBEL PUGA M.D. Dictated By: CLARIBEL PUGA Signed By: 02/14/25 1728 DD/ 1008 TD/TT: [employer]: [place] [address] Electrocardiograph Report Signed Patient: NADIR HEREDIA MR#: [id number] : 1940 Acct:[id number] Age/Sex: 85 / M ADM Date: 02/14/25 Loc: MS 203-[address]: Gama Sung M.D. Ordering Physician: Josie Astudillo Date of Service: 02/14/25 Procedure(s): ECG 12 lead Accession Number(s): [id number] cc: [facility] Test Date: 2025-02-14 Pat Name: NADIR HEREDIA Department: 34 Room: - Gender: Male Table Cut Off Saw Operator: : 1940 Requ ested By: 185 Order Number: [id number] Reading MD: CLARIBEL PUGA M.D. Measurements Intervals [place] Rate: 75 P: -43129 MI: -87454 QRS: -60 QRSD: 100 T: 68 QT: 406 QTc: 435 Interpretive Statements 1210 Atrial fibrillation 3433 Septal myocardi al infarction, probably old 7200 Abnormal left a xis deviation 9150 abnormal ECG Compared to ECG 09/08/2024 12:03:04 Left-axis deviation now present Aberrant conduction of supraventricular beat(s) no longer present Electronically Rosenda d On 02-14-2025 17:28:44 EDT by CLARIBEL PUGA M.D. Dictated By: CLARIBEL PUGA Signed By: 02/14/25 1728 DD/ 1008 TD/TT: [employer]: MR head/brain wo con Reviewed date:02/14/2025 07:52:09 PM Interpretation: Performing Lab: Notes/Report: Source Facility: [place] [address] Magnetic Resonance Report Signed Patient: NADIR HEREDIA MR#: [id number] : 1940 Acct:[id number] Age/Sex: 85 / M ADM Date: 02/14/25 Loc: MRI Attending Dr: Van Sung M.D. Ordering Physician: Van Sung M.D. Date of Service: 02/14/25 Procedure(s): MR head/brain wo con Accession Number(s): [id number] cc: Van Sung M.D. [place] [id number] Patient Name: NADIR HEREDIA MRN: [id number] date: 1940 Sex: M Assigned Patient Location: MRI Current Patient Location: MRI Accession/Order Number: [id number] Exam Date: 02/14/2025 08:47 Report Date: 02/14/2025 09:20 At the request of: VAN SUNG MD Procedure: MR head/brain wo con EXAMINATION: MRI OF THE BRAIN WITHOUT CONTRAST CLINICAL HISTORY: altered mental status R41.82 COMPARISON: CT 09/08/2024 TECHNIQUE: Multiecho, multiplanar imaging of the brain was performed without enhancement. There is generalized atrophy. The ventricles are normal in size and position. Patchy increased T2 and FLAIR signal is visualized within the periventricular white matter compatible with chronic microvascular disease. There are also additional small areas of increased T2 and FLAIR signal at the dacosta radiata and splenium of the corpus callosum on the right as well as inferior to the frontal horn of the left lateral ventricle. These areas have associated restricted diffusion compatible with recent small vessel infarcts. There are no additional areas of abnormal signal intensity or restricted diffusion elsewhere within the supra- or infratentorial brain. No midline abnormalities are noted. There are no extra-axial collections or mass effect. There is minimal ethmoid mucosal thickening. MR/MR head/brain wo con IMPRESSION: GENERALIZED ATROPHY. SMALL VESSEL ISCHEMIC CHANGE INCLUDING RECENT WHITE MATTER INFARCTS, DESCRIBED. Impression dictated by: Radha Wright M.D.02/14/2025 9:20 AM Dictation Location: [place] [address] Electronically authenticated by: [id number] Y Date: 02/14/2025 09:20 Dictated By: Radha Wright M.D. Signed By: 02/14/25921 DD/ 9 TD/TT: [employer]: [place] [address] Magnetic Resonance Report Signed Patient: NADIR HEREDIA MR#: [id number] : 1940 Acct:[id number] Age/Sex: 85 / M ADM Date: 02/14/25 Loc: MRI Attending Dr: Gama Sung M.D. Ordering Physician: Van Sung M.D. Date of Service: 02/14/25 Procedure(s): MR head/brain wo con Accession Number(s): [id number] cc: Van Sung M.D. [place] [id number] Patient Name: NADIR HEREDIA MRN: [id number] date: 1940 Sex: M Assigned Patient Location: MRI Current Patient Loca tion: MRI Accession/Order Numb er: [id number] Exam Date: 02/14/2025 08:47 Report Date: 02/14/2025 09:20 At the request of: VAN SUNG MD Procedure: MR head/b rain wo con EXAMINATION: MRI OF THE BRAIN WITHOUT CONTRAST CLINICAL HISTORY: al tered mental status R41.82 COMPARISON: CT 09/08/2024 TECHNIQUE: Multiecho , multiplanar imaging of the brain was performed without enhancement. There is generalized atrophy. The ventricles are normal in size and position. Patchy increased T2 and FLAIR signal is visualized within the periventricular white matter compati ble with chronic microvascular disease. There are also additional small are as of increased T2 and FLAIR signal at the dacosta radiata and splenium of the corpus callosum on the right as well as inferior to the frontal horn of the left lateral ventricle. These areas have associated restricted diffusion compatible with recent small vessel infarcts. There are no additional areas of abnormal signal intensity or restricted diffusion elsewhere within the supra- or infratentorial brain. No midline abnormalities are noted. There are no extra-axial collections or mass effect. There is minimal ethmoid muco arnold thickening. M R/MR head/brain wo con IMPRESSION: GENERALIZED ATROPHY. SMALL VESSEL ISCHEMI C CHANGE INCLUDING RECENT WHITE MATTER INFARCTS, DESCRIBED. Impression dictated by: Radha Wright M.D.02/14/2025 9:20 AM Dictation Location: [place] [address] Electronically authenticated by: [id number] Y Date: 02/14/2025 09:20 Dictated By: Radha Wright M.D. Signed By: 02/14/25921 DD/ 9 TD/TT: [employer]: CBC AUTO DIFF Reviewed date:02/15/2025 05:24:30 PM Interpretation: Performing Lab: Notes/Report: [facility] , White Blood Count 5.4 4.0-11.0 10 3/uL Red Blood Count 3.54 4.70-6.10 10 6/uL Hemoglobin 10.3 14.0-18.0 g/dL Hematocrit 31.3 42.0-54.0 % Mean Corpuscular Volume 88.4 80.0-94.0 fL Mean Corpuscular Hemoglobin 29.1 25.9-34.0 pg Mean Corpuscular HGB Conc 32.9 29.9-35.2 g/dL Red Cell Distribution Width 16.5 11.0-15.0 % Platelet Count 215 150-450 10 3/uL Mean Platelet Volume 11.8 9.5-13.5 fL Neutrophils Percent Auto 65.9 43.0-75.0 % Lymphocytes Percent Auto 15.7 20.5-60.0 % Monocytes Percent Auto 13.5 1.7-12.0 % Eosinophils Percent Auto 4.1 0.9-7.0 % Basophils Percent Auto 0.6 0.2-2.0 % Immature Granulocytes Pct Auto 0.2 0.0-0.5 % Neutrophils Absolute Auto 3.5 1.4-6.5 10 3/uL Lymphocytes Absolute Auto 0.8 1.2-3.8 10 3/uL Monocytes Absolute Auto 0.7 0.3-0.8 10 3/uL Eosinophils Absolute Auto 0.2 0.0-0.7 10 3/uL Basophils Absolute Auto 0.0 0.0-0.1 10 3/uL Immature Granulocytes Abs Auto 0.01 0.00-0.03 10 3/uL Performing Lab: see note - [facility] PROF CHEM 8 (BAS METB) Reviewed date:02/15/2025 05:24:30 PM Interpretation: Performing Lab: Notes/Report: [facility] , Sodium 141 136-145 mmol/L Potassium 3.8 3.5-5.1 mmol/L Chloride 103 98-107 mmol/L Carbon Dioxide 26.8 21.0-32.0 mmol/L Anion Gap 15.0 Glucose 223 74-106 mg/dL Blood Urea Nitrogen 33.0 7.0-18.0 mg/dL Creatinine 1.64 0.70-1.30 mg/dL Estimated GFR ( Vira 49 >=60 mL/min/1.73m 2 Estimated GFR (Non- Coleen 40 >=60 mL/min/1.73m 2 BUN Creatinine Ratio 20.1 Calcium 8.9 8.5-10.1 mg/dL Performing Lab: see note - [facility] CA echo doppler complete Reviewed date:02/15/2025 05:24:30 PM Interpretation: Performing Lab: Notes/Report: Source Facility: [facility]-[address] [place] [address] [address] Cardiology Report Signed Patient: NADIR HEREDIA MR#: [id number] : 1940 Acct:[id number] Age/Sex: 85 / M ADM Date: 02/14/25 Loc: MS 203-[address]: Van Sung M.D. Ordering Physician: Van Sung M.D. Date of Service: 02/15/25 Procedure(s): CA echo doppler complete Accession Number(s): [id number] cc: Van Sung M.D. Patient Name: NADIR HEREDIA MR#: [id number] : 1940 Exam Date: 02/15/2025 Ordering Doctor: DR Van Sung . ECHOCARDIOGRAM REPORT PROCEDURE: CA ECHO DOPPLER COMPLETE INDICATIONS: Dyspnea, CVA, atrial fibrillation, hypertension, diabetes COMPARISON: None. DESCRIPTION: COMPLETE ECHOCARDIOGRAM Real-time transthoracic echocardiography with 2D, M-mode, spectral and color flow Doppler performed. QUALITY: Technical quality was good. LEFT VENTRICLE: Normal chamber size. Moderate to Severe concentric left ventricular hypertrophy. LV EF: Normal left ventricular systolic function, No WMA, ejection fraction 65-70% DIASTOLIC: Not adequately assessed due to heart rhythm. ATRIAL SEPTUM: Agitated saline contrast does not reveal an intra-cardiac shunt. LEFT ATRIUM: Severe dilatation. RIGHT ATRIUM: Severe dilatation. RIGHT VENTRICLE: Moderate dilatation. Reduced right ventricular systolic function. TRICUSPID VALVE: Normal mobility and thickness. No stenosis with mild regurgitation. Doppler studies reveal severely (>60) elevated right sided pressures.RVSP 61 mmHg MITRAL VALVE: Normal mobility and thickness. No evidence of mitral valve stenosis. Moderate mitral annular calcification. Mild mitral regurgitation. AORTIC VALVE: Normal trileaflet appearance. Moderately calcified aortic valve. Moderately diminished mobility. Doppler velocity suggest moderate aortic valve stenosis.Mean PG 21 mmHg, DVI 0.26, MELY 1.1 cm2. Trivial aortic regurgitation. AORTIC ROOT: Aortic root is dilated (4.2 cm) PULMONIC VALVE: Normal thickness and mobility. No stenosis. Mild regurgitation. PERICARDIUM: Moderate pericardial effusion. No evidence of tamponade IVC: Not seen PLEURA: CONCLUSION: Moderate to severe concentric left ventricular hypertrophy Normal left ventricle systolic function without wall motion abnormalities, ejection fraction 65 to 70% Moderately dilated right ventricle with reduced systolic function Severely elevated right ventricle systolic pressure, RVSP 61 mmHg Severe biatrial dilatation Moderate aortic valve stenosis Trace aortic insufficiency Dilated aortic root 4.2 cm Mild mitral regurgitation Mild tricuspid regurgitation Moderate pericardial effusion without evidence of tamponade Moderate mitral annulus calcification Adult Echocardiography Procedure Report Left Ventricle LVEDD (3.7 - 5.6 cm): 4.17 cm LVESD (2.2 - 4.0 cm): 2.72 cm LVIVS thickness (0.6 - 1.2 cm): 1.74 cm LVPW thickness (0.5 - 1.0 cm): 1.55 cm LVOT Max Gradient: 2.95 mm[Hg], 2.32 mm[Hg] LVOT Area (cm2): 0.81 m/s Peak Velocity (LVOT): 0.86 m/s, 0.76 m/s Mean Velocity (LVOT): 0.58 m/s LVOT Diameter 2.21 cm Left Atrium LA Volume Index (2D A2C): 95.66 ml/m2 Left Atrium Systolic Dimension: 5.81 cm Mitral Valve Mitral Valve E-Wave Peak Velocity: 1.05 m/s Right Ventricle Aorta AO Root Diam: 4.17 cm Ascending Ao Diam: 3.54 cm Aortic Valve AoV Area (Peak Kyle): 1.00 cm2, 1.05 cm2, 0.95 cm2 AoV Area (VTI): 1.09 cm2, 1.16 cm2, 1.01 cm2 Peak Velocity(Antegrade Flow): 3.13 m/s, 3.07 m/s Peak Gradient(Antegrade Flow): 39.25 mm[Hg], 37.65 mm[Hg] Mean Velocity(Antegrade Flow): 2.14 m/s, 2.11 m/s Mean Gradient(Antegrade Flow): 21.06 mm[Hg], 20.27 mm[Hg] Velocity Time Integral: 80.36 cm, 70.58 cm Tricuspid Valve Peak Velocity (Regurgitant Flow): 3.66 m/s, 2.56 m/s, 3.63 m/s, 3.56 m/s Pulmonic Valve Peak Velocity: 0.87 m/s Peak Gradient: 2.66 mm[Hg], 3.69 mm[Hg], 2.77 mm[Hg] Right Atrium Right Atrium Systolic Pressure: 183.46 ml, 183.46 ml Dictated by: Albaro Faulkner MD on 02/15/2025 at 16:14 Approved by: Albaro Faulkner MD on 02/15/2025 at 16:31 Dictated By: Albaro Faulkner M.D. Signed By: 02/15/25 163 DD/ 1631 TD/TT: [employer]: [place] [address] Cardiology Report Signed Patient: NADIR HEREDIA MR#: [id number] : 1940 Acct:[id number] Age/Sex: 85 / M ADM Date: 02/14/25 Loc: MS 203-[address]: Gama Sung M.D. Ordering Physician: Van Sung M.D. Date of Service: 02/15/25 Procedure(s): CA ech o doppler complete Accession Number(s): [id number] cc: Van Sung M.D. Patient Name: NADIR HEREDIA MR#: [id number] : 1940 Exam Date: 02/15/2025 Ordering Doctor: DR Van Sung . ECHOCARDIOGRAM REPORT PROCEDURE: CA ECHO DOPPLER COMPLETE INDICATIONS: Dyspnea , CVA, atrial fibrillation, hypertension, diabetes COMPARISON: None. DESCRIPTION: COMPLET E ECHOCARDIOGRAM Real-time transthoracic echocardiography wit h 2D, M-mode, spectral and color flow Doppler performed. QUALITY: Technical quality was good. LEFT VENTRICLE: Norm al chamber size. Moderate to Severe concentric left ventricular hypertrophy. LV EF: Normal left ventricular systolic function, No WMA, ejection fraction 65-70% DIASTOLIC: Not adequ ately assessed due to heart rhythm. ATRIAL SEPTUM: Agita fernando saline contrast does not reveal an intra-cardiac shunt. LEFT ATRIUM: Severe dilatation. RIGHT ATRIUM: Severe dilatation. RIGHT VENTRICLE: Mod erate dilatation. Reduced right ventricular systolic function. TRICUSPID VALVE: Nor mal mobility and thickness. No stenosis with mild regurgitation. Doppl er studies reveal severely (>60) elevated right sided pressures.RVSP 61 mmHg MITRAL VALVE: Normal mobility and thickness. No evidence of mitral valve stenosis. Moderate m itral annular calcification. Mild mitral regurgitation. AORTIC VALVE: Normal trileaflet appearance. Moderately calcified aortic valve. Moderately diminished mobility. Doppler velocity suggest moderate aortic valve stenosis.Mean PG 21 mmHg, DVI 0.26, MELY 1.1 cm2. Trivial aortic regurgitation. AORTIC ROOT: Aortic root is dilated (4.2 cm) PULMONIC VALVE: Norm al thickness and mobility. No stenosis. Mild regurgitation. PERICARDIUM: Moderat e pericardial effusion. No evidence of tamponade IVC: Not seen PLEURA: CONCLUSION: Moderate to severe concentric left ventricular hypertrophy Normal left ventricl e systolic function without wall motion abnormalities, ejection fraction 65 to 70% Moderately dilated r ight ventricle with reduced systolic function Severely elevated ri ght ventricle systolic pressure, RVSP 61 mmHg Severe biatrial dilatation Moderate aortic valv e stenosis Trace aortic insufficiency Dilated aortic root 4.2 cm Mild mitral regurgitation Mild tricuspid regurgitation Moderate pericardial effusion without evidence of tamponade Moderate mitral riccardo anthony calcification Adult Echocardiograp hy Procedure Report Left Ventricle LVEDD (3.7 - 5.6 cm) : 4.17 cm LVESD (2.2 - 4.0 cm) : 2.72 cm LVIVS thickness (0.6 - 1.2 cm): 1.74 cm LVPW thickness (0.5 - 1.0 cm): 1.55 cm LVOT Max Gradient: 2 .95 mm[Hg], 2.32 mm[Hg] LVOT Area (cm2): 0.81 m/s Peak Velocity (LVOT) : 0.86 m/s, 0.76 m/s Mean Velocity (LVOT) : 0.58 m/s LVOT Diameter 2.21 cm Left Atrium LA Volume Index (2D A2C): 95.66 ml/m2 Left Atrium Systolic Dimension: 5.81 cm Mitral Valve Mitral Valve E-Wave Peak Velocity: 1.05 m/s Right Ventricle Aorta AO Root Diam: 4.17 cm Ascending Ao Diam: 3 .54 cm Aortic Valve AoV Area (Peak Kyle): 1.00 cm2, 1.05 cm2, 0.95 cm2 AoV Area (VTI): 1.09 cm2, 1.16 cm2, 1.01 cm2 Peak Velocity(Antegr leela Flow): 3.13 m/s, 3.07 m/s Peak Gradient(Antegr leela Flow): 39.25 mm[Hg], 37.65 mm[Hg] Mean Velocity(Antegr leela Flow): 2.14 m/s, 2.11 m/s Mean Gradient(Antegr leela Flow): 21.06 mm[Hg], 20.27 mm[Hg] Velocity Time Integr al: 80.36 cm, 70.58 cm Tricuspid Valve Peak Velocity (Regurgitant Flow): 3.66 m/s, 2.56 m/s, 3.63 m/s, 3.56 m/s Pulmonic Valve Peak Velocity: 0.87 m/s Peak Gradient: 2.66 mm[Hg], 3.69 mm[Hg], 2.77 mm[Hg] Right Atrium Right Atrium Systoli c Pressure: 183.46 ml, 183.46 ml Dictated by: Albaro Faulkner MD on 02/15/2025 at 16:14 Approved by: Albaro Faulkner MD on 02/15/2025 at 16:31 Dictated By: Albaro Faulkner M.D. Signed By: 02/15/25 1632 DD/ 163 TD/TT: [employer]: BNP Reviewed date:03/08/2025 07:11:26 PM Interpretation: Performing Lab: Notes/Report: [facility] , NT Pro B Type Natriuretic Pept 2783.0 <=1800.0 pg/mL RESULTS CALLED TO RAULITO ROBERTO RN Performing Lab: see note ML - [facility] LB CBC AUTO DIFF Reviewed date:03/08/2025 07:11:26 PM Interpretation: Performing Lab: Notes/Report: [facility] , White Blood Count 7.8 4.0-11.0 10 3/uL Red Blood Count 3.75 4.70-6.10 10 6/uL Hemoglobin 10.4 14.0-18.0 g/dL Hematocrit 33.4 42.0-54.0 % Mean Corpuscular Volume 89.1 80.0-94.0 fL Mean Corpuscular Hemoglobin 27.7 25.9-34.0 pg Mean Corpuscular HGB Conc 31.1 29.9-35.2 g/dL Red Cell Distribution Width 17.9 11.0-15.0 % Platelet Count 255 150-450 10 3/uL Mean Platelet Volume 11.5 9.5-13.5 fL Neutrophils Percent Auto 76.8 43.0-75.0 % Lymphocytes Percent Auto 9.7 20.5-60.0 % Monocytes Percent Auto 9.6 1.7-12.0 % Eosinophils Percent Auto 3.3 0.9-7.0 % Basophils Percent Auto 0.5 0.2-2.0 % Immature Granulocytes Pct Auto 0.1 0.0-0.5 % Neutrophils Absolute Auto 6.0 1.4-6.5 10 3/uL Lymphocytes Absolute Auto 0.8 1.2-3.8 10 3/uL Monocytes Absolute Auto 0.8 0.3-0.8 10 3/uL Eosinophils Absolute Auto 0.3 0.0-0.7 10 3/uL Basophils Absolute Auto 0.0 0.0-0.1 10 3/uL Immature Granulocytes Abs Auto 0.01 0.00-0.03 10 3/uL Performing Lab: see note ML - [facility] LB PROF CHEM 8 (BAS METB) Reviewed date:03/08/2025 07:11:26 PM Interpretation: Performing Lab: Notes/Report: [facility] , Sodium 139 136-145 mmol/L Potassium 4.6 3.5-5.1 mmol/L Chloride 102 98-107 mmol/L Carbon Dioxide 29.4 21.0-32.0 mmol/L Anion Gap 12.2 Glucose 230 74-106 mg/dL Blood Urea Nitrogen 24.0 7.0-18.0 mg/dL Creatinine 1.79 0.70-1.30 mg/dL Estimated GFR ( Vira 44 >=60 mL/min/1.73m 2 Estimated GFR (Non- Coleen 36 >=60 mL/min/1.73m 2 BUN Creatinine Ratio 13.4 Calcium 8.9 8.5-10.1 mg/dL Performing Lab: see note ML - [facility] Troponin I High Sensitivity Reviewed date:03/08/2025 07:11:26 PM Interpretation: Performing Lab: Notes/Report: [facility] , Troponin I High Sensitivity 15.5 4.0-76.1 pg/mL CUT-OFF POINTS HAVE BEEN ESTABLISHED BASED ON THE FOURTH UNIVERSAL DEFINITION OF MYOCARDIAL INFARCTION. THE UPPER REFERENCE LIMIT (URL) OF TROPONIN, DEFINED THE 99TH PERCENTILE OF cTnI DISTRIBUTION IN A REFERENCE POPULATION, HAS BEEN CONFIRMED THE DECISION THRESHOLD FOR AR DIAGNOSIS. 99TH PERCENTILE = 76.2 PG/ML NOTE: HIGH-SENSITIVITY TROPONIN ASSAY IS NOT INTENDED TO BE USED IN ISOLATION BUT SHOULD BE INTERPRETED IN CONJUNCTION WITH OTHER DIAGNOSTIC AND CLINICAL INFORMATION. Performing Lab: see note ML - [facility] LB ECG 12 lead Reviewed date:03/08/2025 08:58:48 PM Interpretation: Performing Lab: Notes/Report: Source Facility: [facility]-[address] [place] [address] [place] [address] Electrocardiograph Report Signed Patient: NADIR HEREDIA MR#: [id number] : 1940 Acct:[id number] Age/Sex: 85 / M ADM Date: 03/08/25 Loc: ER Attending Dr: Ordering Physician: Akhil Dobson M.D. Date of Service: 03/08/25 Procedure(s): ECG 12 lead Accession Number(s): [id number] cc: [facility] Test Date: 2025-03-08 Pat Name: NADIR HEREDIA Department: Room: - Gender: Male Table Cut Off Saw Operator: : 1940 Requested By: 1030 Order Number: [id number] Reading MD: CLARIBEL PUGA M.D. Measurements Intervals [place] Rate: 70 P: -13911 MI: -21335 QRS: 48 QRSD: 100 T: 26 QT: 414 QTc: 435 Interpretive Statements 49439 Atrial fibrillation with aberrant conduction, or ventricular premature complexes 3113 Cannot rule out anterior myocardial infarction, probably old [address] depression, probably digitalis effect 9150 abnormal ECG Compared to ECG 02/14/2025 10:08:55 Ventricular premature complex(es) now present Aberrant conduction of supraventricular beat(s) now present Electronically Signed On 03-08-2025 20:43:48 EDT by CLARIBEL PUGA M.D. Dictated By: CLARIBEL PUGA Signed By: 03/08/252042 DD/ 4 TD/TT: [employer]: [place] [address] Electrocardiograph Report Signed Patient: NADIR HEREDIA MR#: [id number] : 1940 Acct:[id number] Age/Sex: 85 / M ADM Date: 03/08/25 Loc: ER Attending Dr: Ordering Physician: Akhil Dobson M.D. Date of Service: 03/08/25 Procedure(s): ECG 12 lead Accession Number(s): [id number] cc: [facility] Test Date: 2025-03-08 Pat Name: NADIR HEREDIA Department: 34 Room: - Gender: Male Table Cut Off Saw Operator: : 1940 Requ ested By: 1030 Order Number: [id number] Reading MD: CLARIBEL PUGA M.D. Measurements Intervals [place] Rate: 70 P: -24585 MI: -45727 QRS: 48 QRSD: 100 T: 26 QT: 414 QTc: 435 Interpretive Statements 50274 Atrial fibrill ation with aberrant conduction, or ventricular premature complexes 3113 Cannot rule out anterior myocardial infarction, probably old [address] depression, probably digitalis effect 9150 abnormal ECG Compared to ECG 02/14/2025 10:08:55 Ventricular prematur e complex(es) now present Aberrant conduction of supraventricular beat(s) now present Electronically Rosenda d On 03-08-2025 20:43:48 EDT by CLARIBEL PUGA M.D. Dictated By: CLARIBEL PUGA Signed By: 03/08/252042 DD/ 4 TD/TT: [employer]: CBC AUTO DIFF Reviewed date:02/18/2025 03:43:48 PM Interpretation: Performing Lab: Notes/Report: [facility] , White Blood Count 8.2 4.0-11.0 10 3/uL Red Blood Count 3.98 4.70-6.10 10 6/uL Hemoglobin 11.3 14.0-18.0 g/dL Hematocrit 35.5 42.0-54.0 % Mean Corpuscular Volume 89.2 80.0-94.0 fL Mean Corpuscular Hemoglobin 28.4 25.9-34.0 pg Mean Corpuscular HGB Conc 31.8 29.9-35.2 g/dL Red Cell Distribution Width 16.9 11.0-15.0 % Platelet Count 227 150-450 10 3/uL Mean Platelet Volume 11.4 9.5-13.5 fL Neutrophils Percent Auto 75.2 43.0-75.0 % Lymphocytes Percent Auto 9.3 20.5-60.0 % Monocytes Percent Auto 12.0 1.7-12.0 % Eosinophils Percent Auto 2.8 0.9-7.0 % Basophils Percent Auto 0.5 0.2-2.0 % Immature Granulocytes Pct Auto 0.2 0.0-0.5 % Neutrophils Absolute Auto 6.2 1.4-6.5 10 3/uL Lymphocytes Absolute Auto 0.8 1.2-3.8 10 3/uL Monocytes Absolute Auto 1.0 0.3-0.8 10 3/uL Eosinophils Absolute Auto 0.2 0.0-0.7 10 3/uL Basophils Absolute Auto 0.0 0.0-0.1 10 3/uL Immature Granulocytes Abs Auto 0.02 0.00-0.03 10 3/uL Performing Lab: see note ML - [facility] PROF CHEM 8 (BAS METB) Reviewed date:02/18/2025 03:43:48 PM Interpretation: Performing Lab: Notes/Report: [facility] , Sodium 140 136-145 mmol/L Potassium 4.4 3.5-5.1 mmol/L Chloride 103 98-107 mmol/L Carbon Dioxide 28.7 21.0-32.0 mmol/L Anion Gap 12.7 Glucose 209 74-106 mg/dL Blood Urea Nitrogen 36.0 7.0-18.0 mg/dL Creatinine 1.71 0.70-1.30 mg/dL Estimated GFR ( Vira 46 >=60 mL/min/1.73m 2 Estimated GFR (Non- Coleen 38 >=60 mL/min/1.73m 2 BUN Creatinine Ratio 21.1 Calcium 9.0 8.5-10.1 mg/dL Performing Lab: see note ML - [facility] Reason For Referral No Information Medications Medication SIG (Take, Route, Frequency, Duration) Notes Start Date End Date Status ALPRAZolam 0.25 MG 1 tablet F41.9 Orall y Twice a day 08/15/2024 Active Aspirin 81 81 MG 1 tablet Orally Once a day Active Jardiance 25 MG 1 tablet Orally Once a day Active Klor-Con M20 20 MEQ TAKE 1 TABLET BY [facility] TWICE A DAY for 90 Active Pioglitazone HCl 45 MG 1 tablet Orally O nce a day for 90 days Active Align Prebiotic-Probiotic 5-1.25 MG-GM 1 capsule Orally once daily Active Primidone 50 MG 1 tablet Orally twic e a day for 90 days Active Omeprazole 20 MG TAKE 2 CAPSULES BY [facility] DAILY for 90 Active Albuterol Sulfate (2.5 MG/3ML) 0.083% 3 mL as needed Inhalation every 6 hrs Active Ondansetron 4 MG 1 tablet on the [facility] ue and allow to dissolve Orally Q 6 hours PRN for 3 10/01/2023 Active metFORMIN HCl 500 MG TAKE 1 TABLET BY [facility] EVERY DAY FOR 30 DAYS for 30 Active Metoclopramide HCl 5 MG TAKE 1 TABLET BY MOUTH AT BEDTIME for 90 Active Labetalol HCl 300 MG 1 tablet Orally TID for 90 days Active Lasix 40 MG 1 tablet Orally bid Active Aldactone 25 MG 1 tablet Orally Once a day for 30 days 05/28/2023 Active Januvia 100 MG 1 tablet Orally Once a day for 90 days 02/13/2025 Active Symbicort 80-4.5 MCG/ACT 2 puffs Inhalat ion Once a day Active Blood Glucose Test Strip Active Tamsulosin HCl 0.4 MG TAKE 1 CAPSULE BY MOUTH DAILY for 90 Active Spiriva Respimat 1.25 MCG/ACT 2 puffs Inhalation Once a day Active Ferrous Sulfate 325 (65 Fe) MG 1 tablet Orally Once a day Active Glimepiride 4 MG TAKE 2 TABLETS BY [facility] EVERY DAY for 90 days Active Escitalopram Oxalate 5 MG TAKE 1 TABLET BY MOUTH EVERY DAY FOR 30 DAYS for 90 Active Ezetimibe 10 MG TAKE 1 TABLET BY [facility] ONCE DAILY for 90 Active Diabetic Shoe - - Daily Acti ve Dicyclomine HCl 10 MG 2 capsules Orally Three times a day for 90 days Active Cetirizine HCl 10 MG 1 tablet Orally Twi ce a day for 30 days Active Xarelto 15 MG 1 tablet with food Orally Once a day for 30 days Active cloNIDine HCl 0.1 MG 2 tablets Orally bi d for 90 days Active Immunizations Vaccine Route Administration Date Status Comme nts Flu, Fluad (5321-7775) (60616) 65 yrs+, single-dose syringe IM Intramuscular 08/20/2023 Administered Flu, Fluad (90035) 65 yrs and older, single-dose syringe IM Intramuscular 08/23/2024 Administered Social History Tobacco Use: Social History Observation Description Date Details (start date - stop date) Former Smoker NA - NA Tobacco Use/Smoking Question Answer Notes Patient is a former smoker Alcohol Screen (Audit-C) Question Answer Notes Did you have a drink containing alcohol in the p ast year? No Points 0 Interpretation Negative AUDIT-C (Standard) Question Answer Notes Did you have a drink containing alcohol in the p ast year? 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 Problem Overweight (869743242) Overweight (E66.3) Active confirmed Problem Generalized anxiety disorder (94992386) Generalized anxiety disorder (F41.1) Active confirmed Problem 78716773 Atherosclerotic heart disease of [place] coronary artery without angina pectoris (I25.10) Active confirmed Problem 75965527 Nonrheumatic aortic (valve) stenosis (I35.0) Active confirmed Problem Aortic valve disorder (0003535) Other nonrheumatic aortic valve disorders (I35.8) Active confirmed Problem 904085711 Acute diastolic (congestive) heart failure (I50.31) Active confirmed Problem Acute combined systolic and diastolic heart failure (015180455142684) 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 confirmed Problem 16460353 Polyp of colon (K63.5) Active confirmed Problem Chronic kidney disease stage 3 (disorder) (317581933) Chronic kidney disease, stage 3 (moderate) (N18.3) Active confirmed Problem Balanitis (89850756) Balanitis (N48.1) Active confirmed Problem 40826309 Bradycardia, unspecified (R00.1) Active confirmed Problem Shortness of breath (283009268) Shortness of breath (R06.02) Active confirmed Problem 538572763 Blister (nonthermal), unspecified lower leg, initial encounter (S80.406Y) Active confirmed Problem Atrial fibrillation (59156850) Atrial fibrillation (I48.91) Active confirmed Problem Hyperlipidemia (14861131) Hyperlipidemia (E78.5) Active confirmed Problem Aortic regurgitation (96702925) Aortic regurgitation (I35.1) Active confirmed Problem Congestive heart failure (55989164) CHF (congestive heart failure) (I50.9) Active confirmed Problem Asthma (977137361) Asthma (J45.909) Active conf irmed Problem Cervical radiculopathy (66371836) Cervical radiculopathy (M54.12) Active confirmed Problem Tricuspid regurgitation (445849673) Tricuspid regurgitation (I07.1) Active confirmed Problem Aortic valve disorder (9864038) Aortic stenosis (I35.0) Active confirmed Problem Atrial fibrillation (disorder) (66061601) Afib (I48.91) Active confirmed Problem Edema (15676077) Edema (R60.9) Active confirmed Problem Depression (521681197) Depression (F32.9) Active confirmed Problem Peripheral neuropathy (066596652) Peripheral neuropathy (G62.9) Active confirmed Problem Vitamin B12 deficiency (821309030) Vitamin B12 deficiency (E53.8) Active confirmed Problem Sleep apnea (80954676) Sleep apnea (G47.30) Active confirmed Problem CVA - Cerebrovascular accident (875016487) CVA (cerebral vascular accident) (I63.9) Active confirmed Problem Osteoarthritis of knee (120311725) Osteoarthritis of knee (M17.9) Active confirmed Problem Congestive heart failure (70837554) Congestive heart failure (I50.9) Active confirmed Problem Migraine (36333861) Migraine (G43.909) Active confirmed Problem Irritable bowel syndrome (07276142) IBS (irritable bowel syndrome) (K58.9) Active confirmed Problem Peptic ulcer (41178158) Peptic ulcer (K27.9) Active confirmed Problem Generalized anxiety disorder (58473646) MERA (generalized anxiety disorder) (F41.1) Active confirmed Problem Diabetes mellitus type 2 (disorder) (78804914) DM2 (diabetes mellitus, type 2) (E11.9) Active confirmed Problem Acute bronchitis (92920918) Acute bronchitis (J20.9) Active confirmed Problem Cervical spondylosis with myelopathy (M47.12) Active confirmed Problem Pulmonary edema (11897274) Pulmonary edema (J81.1) Active confirmed Problem Diverticulitis (95721292) Diverticulitis (K57.92) Active confirmed Problem Diabetic neuropathy (973565915) Diabetic neuropathy (E11.40) Active confirmed Problem Acute systolic heart failure (109555736) Acute systolic heart failure (I50.21) Active confirmed Problem Benign prostatic hyperplasia (327117684) Benign prostatic hyperplasia (N40.0) Active confirmed Problem Dyshidrotic eczema (507095600) Dyshidrotic eczema (L30.1) Active confirmed Problem Iron deficiency anemia (05051556) Anemia, iron deficiency (D50.9) Active confirmed Problem Ventricular hypertrophy (802862028) Ventricular hypertrophy (I51.7) Active confirmed Problem Hemorrhoid (92289179) Hemorrhoid (K64.9) Active confirmed Problem Labyrinthitis (29885163) Labyrinthitis (H83.09) Active confirmed Problem Altered mental status (825802190) Altered mental status (R41.82) Active confirmed Problem Liver mass (948854879) Liver mass (R16.0) Active confirmed Problem Electrolyte imbalance (167240270) Electrolyte imbalance (E87.8) Active confirmed Problem Altered mental status (401479543) Altered mental state (R41.82) Active confirmed Problem Foot callus (815132742) Foot callus (L84) Active confirmed Problem Left lower lobe pneumonia (548469793) Left lower lobe pneumonia (J18.9) Active confirmed Problem Dermatochalasis (295324192) Dermatochalasis (H02.839) Active confirmed Problem Acute diastolic heart failure (866286349) Acute diastolic heart failure (I50.31) Active confirmed Problem 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 confirmed Problem Urinary tract obstruction (4032350) Urinary obstruction (N13.9) Active confirmed Problem Cardiomegaly (0802253) Atrial enlargement, left (I51.7) Active confirmed Problem Generalized anxiety disorder (78839445) Anxiety neurosis (F41.1) Active confirmed Problem Tubulovillous adenoma of colon (8546116312) 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) Active confirmed Problem Essential hypertension (33362689) Essential Hypertension (I10) Active confirmed Problem 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 Problem Essential hypertension (09180445) BP (high blood pressure) (I10) Active confirmed Problem History of cardioversion (42964943854520) History of cardioversion (Z98.890) Active confirmed Problem Degenerative disorder of macula (004889516) Macular degeneration, 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) Active confirmed Problem Deep vein thrombosis (DVT) of non-extremity vein, unspecified chronicity (I82.90) Active confirmed Problem Chronic kidney disease stage 2 (797842196) Chronic kidney disease (CKD), stage 2 (mild) (N18.2) Active confirmed Problem Pulmonary hypertension (55350890) Pulmonary hypertension (I27.20) Active confirmed Problem Lump in right breast (02999454566324663 ) Unspecified lump in the right breast, unspecified quadrant (N63.10) Active confirmed Problem Abrasion of skin (59955792) Skin abrasion (T14.8XXA) Active confirmed Problem Liver function tests abnormal (420513591) Liver function test abnormality (R94.5) Active confirmed Problem Type II diabetes mellitus without complication (619273601) Diabetes (E11.9) Active confirmed Problem Myocardial infarct (69487290) Myocardial infarct (I21.9) Active confirmed Problem Diabetes mellitus (59958389) Diabetes mellitus (E11.9) Active confirmed Problem Resting tremor (44599160) Resting tremor (G25.2) Active confirmed Problem COVID-19 (764379454) COVID-19 (U07.1) Active confirmed Problem 751942331 Chronic kidney disease, stage 3 unspecified (N18.30) Active confirmed Problem Cardiomegaly (3583005) Atrial enlargement, right (I51.7) Active confirmed Problem 671074756 Other pericardia l effusion (noninflammatory) (I31.39) Active confirmed Vital Signs Oximetry 90 % 04/06/2025 Blood pressure diastolic 80 mm Hg 04/06/2025 Height 70 in 04/06/2025 Blood pressure systolic 152 mm Hg 04/06/2025 Weight 186.8 lbs 04/06/2025 BMI 26.8 kg/m2 04/06/2025 Encounters Encounter Location Date Provider Diagnosis [facility] [address] [place] [address] 02/13/2025 Erik Sung [facility] [address] [place] [address] 02/16/2025 Erik mohan [facility] [address] [place] [address] 02/22/2025 Erik mohan [facility] [address] [place] [address] 03/16/2025 Erik mohan [facility] [address] [place] [address] 03/16/2025 Erik mohan [facility] [address] [place] [address] 04/10/2025 Erik Sung Atrial fibrillation I48.91 [facility] [address] [place] [address] 12/24/2024 [facility] [address] [place] [address] 01/17/2025 [facility] [address] [place] [address] 01/18/2025 [facility] [address] [place] [address] 01/18/2025 Erik Sung Atrial fibrillation I48.91 [facility] [address] [place] [address] 01/29/2025 Erik mohan [facility] [address] [place] [address] 02/13/2025 Erik Sung Altered mental statu s R41.82 [facility] [address] [place] [address] 07/07/2024 Erik mohan [facility] [address] [place] [address] 08/15/2024 [facility] [address] [place] [address] 08/16/2024 Erik mohan [facility] [address] [place] [address] 08/23/2024 Erik Hoy Atrial fibrillation I48.91 [facility] [address] [place] [address] 08/25/2024 Erik Pineda Atrial fibrillation I48.91 [facility] [address] [facility] [place] [address] 09/25/2024 Erik mohan [facility] [address] [facility] [place] [address] 06/07/2024 Erik Sung [facility] [address] [facility] [place] [address] 06/08/2024 Erik Sung [facility] [address] [facility] [place] [address] 06/09/2024 Erik Kerrmohan [facility] [address] [facility] [place] [address] 06/16/2024 Erik Sung [facility] [address] [facility] [place] [address] 01/18/2025 Erik Kerry Urinary frequency R3 5.0 ; Edema R60.9 ; Essential Hypertension I10 and Diabetes mellitus E11.9 [facility] [address] [facility] [place] [address] 02/22/2025 Erik Ciriloy Vitamin B12 deficien cy E53.8 ; Hyperlipidemia E78.5 ; Atrial fibrillation I48.91 ; CVA (cerebral vascular accident) I63.9 and Diabetes mellitus E11.9 [facility] [address] [facility] [place] [address] 03/14/2025 Erik Hoy Atrial fibrillation I48.91 ; Hyperlipidemia E78.5 and Pulmonary hypertension I27.20 [facility] [address] [facility] [place] [address] 04/06/2025 Erik Hoy Atrial fibrillation I48.91 and CHF (congestive heart failure) I50.9 [facility] [address] [place] [address] 08/15/2024 Erik Kerry Benign prostatic hyperplasia N40.0 ; Anxiety neurosis F41.1 ; Essential Hypertension I10 and Resting tremor G25.2 [facility] [address] [facility] [place] [address] 08/23/2024 Erik Hoy Atrial fibrillation I48.91 ; Diabetic neuropathy E11.40 ; Essential Hypertension I10 ; Resting tremor G25.2 and Encounter for immunization Z23 [facility] [address] [facility] [place] [address] 09/22/2024 Erik Hoy Diabetic neuropathy E11.40 ; Essential Hypertension I10 ; Resting tremor G25.2 and Anxiety neurosis F41.1 [facility] [address] [facility] [place] [address] 01/15/2025 Erik Hoy Vitamin B12 deficien cy E53.8 [facility] [address] [facility] [place] [address] 03/26/2025 Erik Hoy Vitamin B12 deficien cy E53.8 [facility] [address] [place] [address] 05/04/2024 VAN HOY Vitamin B12 deficien cy E53.8 [facility] [address] [facility] [place] [address] 06/02/2024 Erik Hoy Vitamin B12 deficien cy E53.8 [facility] [address] [facility] [place] [address] 07/07/2024 Erik Hoy Vitamin B12 deficien cy E53.8 [facility] [address] [facility] [place] [address] 08/07/2024 Erik Hoy Vitamin B12 deficien cy E53.8 [facility] [address] [facility] [place] [address] 11/17/2024 Erik Hoy Vitamin B12 deficien cy E53.8 [facility] [address] [place] [address] 12/18/2024 Erik Hoy Vitamin B12 deficien cy E53.8 Assessments Encounter Date Diagnosis (ICD Code) Assessment Notes Treatment Notes Treatment Clinical Notes Section Notes 09/22/2024 Diabetic neuropathy (ICD-10 - E11.40) 09/22/2024 Essential Hypertension (ICD-10 - I10) trial of inc labetolol to TID 08/23/2024 Atrial fibrillation (ICD-10 - I48.91) rATE CONTYROLLED 08/23/2024 Diabetic neuropathy (ICD-10 - E11.40) SUGAR good 11/17/2024 Vitamin B12 deficiency (ICD-10 - E53.8) 12/18/2024 Vitamin B12 deficiency (ICD-10 - E53.8) 01/15/2025 Vitamin B12 deficiency (ICD-10 - E53.8) 01/18/2025 Urinary frequency (ICD-10 - R35.0) 01/18/2025 Edema (ICD-10 - R60.9) 02/22/2025 Vitamin B12 deficiency (ICD-10 - E53.8) 02/22/2025 Hyperlipidemia (ICD-10 - E78.5) 03/26/2025 Vitamin B12 deficiency (ICD-10 - E53.8) 04/06/2025 Atrial fibrillation (ICD-10 - I48.91) 04/06/2025 CHF (congestive heart failure) (ICD-10 - I50.9) 08/23/2024 Atrial fibrillation (ICD-10 - I48.91) 08/25/2024 Atrial fibrillation (ICD-10 - I48.91) 01/18/2025 Atrial fibrillation (ICD-10 - I48.91) 02/13/2025 Altered mental status (ICD-10 - R41.82) 04/10/2025 Atrial fibrillation (ICD-10 - I48.91) 03/14/2025 Atrial fibrillation (ICD-10 - I48.91) 03/14/2025 Hyperlipidemia (ICD-10 - E78.5) 05/04/2024 Vitamin B12 deficiency (ICD-10 - E53.8) 06/02/2024 Vitamin B12 deficiency (ICD-10 - E53.8) 07/07/2024 Vitamin B12 deficiency (ICD-10 - E53.8) 08/07/2024 Vitamin B12 deficiency (ICD-10 - E53.8) 08/15/2024 Benign prostatic hyperplasia (ICD-10 - N40.0) 08/15/2024 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) 08/15/2024 Essential Hypertension (ICD-10 - I10) 03/14/2025 Pulmonary hypertension (ICD-10 - I27.20) 02/22/2025 Atrial fibrillation (ICD-10 - I48.91) 01/18/2025 Essential Hypertension (ICD-10 - I10) 08/23/2024 Essential Hypertension (ICD-10 - I10) stable 09/22/2024 Resting tremor (ICD-10 - G25.2) 09/22/2024 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) 08/23/2024 Resting tremor (ICD-10 - G25.2) adjusteng med - primidone to 1 in am and 2 at hs 01/18/2025 Diabetes mellitus (ICD-10 - E11.9) 02/22/2025 CVA (cerebral vascular accident) (ICD-10 - I63.9) 08/15/2024 Resting tremor (ICD-10 - G25.2) 02/22/2025 Diabetes mellitus (ICD-10 - E11.9) restarting metformin 08/23/2024 Encounter for immunization (ICD-10 - Z23) Plan Of Treatment Pending Test Test Name Order Date CMP (COMPLETE METABOLIC PANEL) 4 CBC WITH DIFF 01/18/2025 XR Chest PA and Lateral (Routine CXR) * 07/23/2023 XR Chest PA and Lateral (Routine CXR) * 08/30/2023 XR Chest PA and Lateral (Routine CXR) * 09/09/2023 T3 FREE, T4 FREE and TSH 03/13/2024 FECAL OCCULT BLOOD 03/13/2024 Basic Metabolic Panel (8) 04/10/2025 MRI Brain w/o Contrast 02/13/2025 BNP 04/10/2025 CULTURE SPUTUM 07/23/2023 CULTURE SPUTUM 01/18/2025 RESPIRATORY PANEL PLUS 09/09/2023 SPUTUM GRAM STAIN 01/18/2025 THYROID PANEL (T4/TSH/FREE T3) 5 Free PSA 03/13/2024 CMP (COMP MET LYN) w/eGFR CKD-EPI 2024 Next Appt Details Provider Name:Erik Sung, 09:30:00 AM, [address] [place], [address], Insurance Providers Payer Name Payer Address Payer Phone Subscriber Number Group Number Insured Name Patient Relationship to Insured Coverage Start Date Coverage End Date [place] [address] [place] [address] [phone] [id number] Raifsnilidia er, Nadir Self - patient is the insured 4 [facility] [address] [place] [address] [phone] [id number] PLAN C ifsnid er, Nadir Self - patient is the insured 5 Medications Administered Medication Instructions Date of Administration Dosage Notes Ceftriaxone 1 gram 07/23/2023 1 g 1 gm Cyanocobalamin 03/05/2023 1 mL Cyanocobalamin 04/02/2023 1 mL Cyanocobalamin 04/02/2023 1 mL Cyanocobalamin 05/07/2023 1 mL Cyanocobalamin 06/04/2023 1 mL Cyanocobalamin 12/09/2023 1 mL Cyanocobalamin 01/07/2024 1 mL Cyanocobalamin 02/04/2024 1 mL Cyanocobalamin 03/03/2024 1 mL Cyanocobalamin 04/03/2024 1 mL Cyanocobalamin 05/04/2024 1 mL Cyanocobalamin 06/02/2024 1 mL Cyanocobalamin 07/07/2024 1 mL Cyanocobalamin 08/07/2024 1 mg Cyanocobalamin 11/17/2024 1 mL Cyanocobalamin 12/18/2024 1 mL Cyanocobalamin 01/15/2025 1 mL Cyanocobalamin 02/22/2025 1 mL Cyanocobalamin 03/26/2025 1 mL Medical (General) History Medical History History ICD Code Edema R60.9 Overweight E66.3 COVID-19 U07.1 Dyshidrotic eczema L30.1 Unspecified lump in the right breast, un specified quadrant N63.10 Essential Hypertension I10 Electrolyte imbalance E87.8 Osteoarthritis of knee M17.9 Diabetic neuropathy E11.40 Foot callus L84 Herpesviral keratitis B00.52 Pneumonia J18.9 Generalized anxiety disorder F41.1 Acute combined systolic (con gestive) and diastolic (congestive) heart failure I50.41 Tricuspid regurgitation I07.1 Aortic regurgitation I35.1 Pulmonary hypertension I27.20 Resting tremor G25.2 History of cardioversion Z98.890 Atrial fibrillation I48.91 Acute systolic heart failure I50.21 Acute diastolic heart failure I50.31 Pneumonia J18.9 Macular degeneration, bilateral H35.30 Dermatochalasis of both eyelids 374.87 Dermatochalasis H02.839 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 2 Cervical spondylosis with myelopathy M47 .12 Cervical radiculopathy M54.12 Aortic stenosis I35.0 Atrial enlargement, left I51.7 Atrial enlargement, right I51.7 Chronic kidney disease, stage 3 (moderat e) N18.3 Deep vein thrombosis (DVT) of non-extrem ity vein, unspecified chronicity I82.90 Pulmonary edema J81.1 Diabetes mellitus E11.9 Tubulovillous adenoma of colon D12.6 Lentigo maligna D03.9 Labyrinthitis H83.09 Diverticulitis K57.92 Liver mass R16.0 Liver function test abnormality R94.5 Sleep apnea G47.30 Diabetes mellitus E11.9 Asthma J45.909 Other nonrheumatic aortic valve disorder s I35.8 Ventricular hypertrophy I51.7 Anxiety neurosis F41.1 Depression F32.9 Hyperlipidemia E78.5 Peptic ulcer K27.9 Migraine G43.909 Benign prostatic hyperplasia N40.0 Peripheral neuropathy G62.9 Vitamin B12 deficiency E53.8 Surgical History Surgery Date(Month/Year) Hiatal Hernia TONSILLECTOMY,UNDER 12YRS Back surgery CHOLECYSTECTOMY Hospitalization History Reason Date(Month/Year) Mini Stroke 2023 Weakness, Slurred Speech 08/2024 SOB, Swelling in legs 05/2023
--- OUTSIDE RECORDS SUMMARY | 2025-04-13 07:29 | XMS_ITS | Clinical Summary ---
Author Organization [facility] Address [address] [place] [address] Phone Care Team Providers Care Individualized Education Plan Aide Name Role Phone Unavailable Primary Care Provider Unavailabl e Social History Tobacco Use Types Packs/Day Years Used Date Smoking Tobacco: Never Assessed Sex and Gender Information Value Date Recorded Sex Assigned at Not on file Legal Sex Male 2:16 PM EST Gender Identity Not on file Sexual Orientation Not on file Plan of Treatment Not on file
--- OUTSIDE RECORDS SUMMARY | 2025-04-13 07:29 | XMS_ITS | Clinical Summary ---
Author Organization [facility] Address [address] [place] [address] Care Team Providers Care Mold Washer Name Role Phone Pj Sung MD Primary Care Provider [phone] Allergies Active Allergy Reactions Criticality Noted Date Comments Nitro-Patch Intolerance 08/21/2013 Medications LABETALOL 200 mg tablet Take 200 mg by mouth twice daily. 06/25/2013 Active NIFEDIPINE SR 90 mg 24 hr tablet Take 90 mg by mouth once daily. 06/25/2013 Active OMEPRAZOLE 20 mg capsule Take 20 mg by mouth once daily. 07/13/2013 Active TAMSULOSIN 0.4 mg Cp24 Take 0.4 mg by mouth once daily. 06/25/2013 Active dicyclomine (BENTYL) 10 mg capsule Take 10 mg by mouth before meals and at bedtime. Active metoclopramide HCl 5 mg tablet Take 5 mg by mouth twice daily. Active Aspirin 81 mg Tab Take 81 mg by mouth once daily. Active ezetimibe (ZETIA) 10 mg tablet Take 10 mg by mouth once daily. Active olmesartan (BENICAR) 40 mg tablet Take 40 mg by mouth once daily. Active glimepiride (AMARYL) 2 mg tablet Take 2 mg by mouth daily with breakfast. Active cloNIDine TTS (CATAPRES-TTS) 0.1 mg/24 hr 08/11/2015 Active clopidogrel (PLAVIX) 75 mg tablet 05/02/2015 Active furosemide (LASIX) 20 mg tablet 08/10/2015 Active gabapentin (NEURONTIN) 100 mg capsule Take 600 mg by mouth three times daily. 05/15/2015 Active methocarbamol (ROBAXIN) 500 mg tablet 05/23/2015 Active acyclovir (ZOVIRAX) 400 mg tablet 07/18/2016 Active ALPRAZolam (XANAX) 0.25 mg tablet 06/17/2016 Active fluticasone (FLONASE) 50 mcg/actuation nasal spray 07/14/2016 Active cefdinir (OMNICEF) 300 mg capsule 05/26/2016 Active gabapentin (NEURONTIN) 600 mg tablet 08/22/2016 Active labetalol (TRANDATE) 300 mg tablet Take 150 mg by mouth twice daily. 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 Social History Tobacco Use Types Packs/Day Years Used Date Smoking Tobacco: Never Smokeless Tobacco: Never Alcohol Use Standard Drinks/Week Comments No 0 (1 standard drink = 0.6 oz pur e alcohol) Sex and Gender Information Value Date Recorded Sex Assigned at Not on file Legal Sex Male 10:12 AM EST Gender Identity Not on file Sexual Orientation Not on file Last Filed Vital Signs Vital Sign Reading Time Taken Comments Blood Pressure 146/71 08/24/2016 10:47 AM EDT Pulse 79 08/24/2016 10:47 AM EDT Temperature 36.4 C (97.5 F) 08/24/2016 10:47 AM EDT Respiratory Rate 16 08/24/2016 10:4 7 AM EDT Oxygen Saturation - - Inhaled Oxygen Concentration - - Weight 102.7 kg (226 lb 6.4 oz) 08/24/2016 10:47 AM EDT Height 182.9 cm (6') 08/24/2016 10:47 AM EDT verified dmc Body Mass Index 30.71 08/24/2016 10:47 AM EDT Plan of Treatment Health Maintenance Due Date Last Done Comments Anxiety Screening 1958 Depression Screening 1958 DTaP,Tdap,Td Vaccine (1 - Tdap) 1958 Diabetes Screening 02/07/1984 Pneumococcal Vaccine: 50+ (1 of 1 - PCV) 1989 Shingrix Vaccine (1 of 2) 1989 RSV Vaccine (1 - 1-dose 75+ series) 2014 Covid-19 Vaccine (1 - 2023- season) 2024 Advance Directive Discussion 11/15/2024 Influenza Vaccine (Season Ended) 2025 Insurance [facility]IC[facility] Care Teams Mold Washer Relationship Specialty Start Date End Date Pj Sung MD PCP - General Family Medicine 08/24/12
--- OUTSIDE RECORDS SUMMARY | 2025-04-13 07:29 | XMS_ITS | Referral Summary ---
Author Organization [facility] Address [address] [place] [address] Care Team Providers Care Chair Mender Name Role Phone Pj Sung MD Primary Care Provider [phone] Encounters Date Type Department Care Team Description 03/12/2025 9:30 AM EDT Office Visit [facility] [address] [place] [phone] Mike Cisneros MD Longstanding persistent atrial fibrillation (CMS/HCC) (Primary Dx); Nonrheumatic aortic valve stenosis; Pericardial effusion; Pulmonary hypertension (CMS/HCC); Chronic diastolic congestive heart failure (CMS/HCC); Coronary artery disease involving [place] coronary artery of [place] heart without angina pectoris; Primary hypertension; Stage 3b chronic kidney disease (CMS/HCC); Weakness of both lower extremities; Shortness of breath; Abnormal findings on diagnostic imaging of heart and coronary circulation 02/28/2025 Travel 02/28/2025 10:46 AM EDT - 02/28/2025 11:59 PM EDT Hospital Encounter [facility] [address] [place] [phone] Longstanding persistent atrial fibrillation (CMS/HCC); 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 Discharge Disposition: Home or Self Care () 02/21/2025 Telephone [facility] [address] [place] [phone] Ni Amador RN 02/19/2025 Orders Only [facility] [address] [place] [address] Siddhartha, STEPHEN Brown Longstanding persistent atrial fibrillation (CMS/HCC); 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 from Last 3 Months Allergies Active Allergy Reactions Criticality Noted Date Comments Iodinated Contrast Media 07/17/2022 Nitroglycerin 07/17/2022 Jrjfxeu-Vjn-Pnt Reductase Inhibitors 07/17/2022 Medications Medication Sig Dispensed Refills Start Date End Date Status aspirin 81 mg EC tablet Take 1 tablet every day by oral route. Active acyclovir (Zovirax) 400 mg tablet Take 1 tablet twice a day by oral route for 30 days. Active cloNIDine (Catapres) 0.1 mg tablet Take 2 tablets by mouth in the morning and at bedtime. Active ezetimibe (Zetia) 10 mg tablet Take 1 tablet every day by oral route. Active glimepiride (Amaryl) 4 mg tablet Take 1 tablet by mouth in the morning and at bedtime. Active labetalol (Normodyne) 300 mg tablet Take 300 mg by mouth three times daily. Active pioglitazone (Actos) 45 mg tablet Take 1 tablet by mouth in the morning. Active potassium chloride CR (Klor-Con M20) 20 mEq ER tablet Take 1 tablet every day by oral route for 90 days. Active primidone (Mysoline) 50 mg tablet Take 2 tablets by mouth in the morning and at bedtime. Active tiotropium (Spiriva Respimat) 1.25 mcg/actuation inhaler Inhale 2 puffs every day by inhalation route. Active tamsulosin (Flomax) 0.4 mg 24 hr capsule Take 1 capsule every day by oral route for 90 days. Active Align 4 mg capsule TAKE 1 CAPSULE BY MOUTH DAILY AFTER COMPLETING THE ANTIBIOTICS COURSE 06/10/2023 Active dicyclomine (Bentyl) 10 mg capsule Take 20 mg by mouth. Active omeprazole (PriLOSEC) [address] capsule Take 40 mg by mouth before breakfast. Do not crush or chew. Active ferrous sulfate 325 (65 Fe) MG tablet Take 65 mg by mouth with breakfast. Active cholecalciferol (Vitamin D3) 25 MCG (1000 units) tablet Take 2,000 Units by mouth in the morning. Active magnesium oxide (Mag-Ox) 250 mg magnesium tablet Take 250 mg by mouth. 11/06/2020 Active ALPRAZolam (Xanax) 0.25 mg tablet Take 1 tablet by mouth Twice daily at 6am and 6pm. 08/15/2024 Active furosemide (Lasix) 40 mg tabletIndications: Pulmonary hypertension (CMS/HCC),Chronic diastolic congestive heart failure (CMS/HCC) Take 2 tablets (80 mg) by mouth two times daily. 360 tablet 3 12/14/2024 12/14/2025 Active Additional Information Patient taking differently: 40 mgoral 2 times daily,Taking 40mg in the AM, 20mg in the PM, Reported on 03/12/2025 prednisoLONE acetate (Pred-Forte) 1 % ophthalmic suspension INSTILL 1 DROP INTO RIGHT EYE 3 TIMES A DAY DIRECTED 12/12/2024 Active cholecalciferol (Vitamin D3) 25 MCG (1000 UT) capsuleIndications :Vitamin D deficiency Take 5 capsules (125 mcg) by mouth in the morning. 150 capsule 11 01/03/2025 01/03/2026 Active rivaroxaban (Xarelto) 15 mg tablet Take 15 mg by mouth daily with evening meal. Take with food. Active empagliflozin (Jardiance) 25 mg Take 25 mg by mouth in the morning. Active metoclopramide (Reglan) 5 mg tablet Take 5 mg by mouth once daily as directed. bedtime Active SITagliptin phosphate (Januvia) 50 mg tablet Take 100 mg by mouth in the morning. Active metFORMIN (Glucophage) 500 mg tablet Take 500 mg by mouth with breakfast. 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 Cervical paraspinal muscle spasm 01/07/2024 Overview (06/05/2024): Last Assessment & Plan: (Continue home PT). Neurogenic pain 01/07/2024 Overview (06/05/2024): Last Assessment & Plan: May request to restart GBP at a lower dose - 300 hs - when/if desired. Polyneuropathy 01/07/2024 Congestive heart failure 11/17/2023 Hearing loss 11/17/2023 11/17/2023 Hyperlipidemia 11/17/2023 11/17/2023 Hypertensive heart and chron ic kidney disease with heart failure and stage 1 through stage 4 chronic kidney disease, or unspecified chronic kidney disease 11/17/2023 11/17/2023 Nausea 11/17/2023 11/17/2023 Sensorineural hearing loss, bilateral 11/17/2023 11/17/2023 Stenosis of left renal artery 11/17/2023 Tremor 11/17/2023 11/17/2023 Chronic constipation with overflow 06/10/2023 06/10/2023 Colon polyps 06/10/2023 06/10/2023 Diverticulosis 06/10/2023 06/10/2023 Family history of colon cancer 06/10/2023 0 06/10/2023 Fecal urgency 06/10/2023 06/10/2023 High serum creatinine 06/10/2023 06/10/2023 Loose stools 06/10/2023 06/10/2023 History of colon polyps 06/10/2023 06/10/20 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 disease 10/05/2022 Pericardial effusion 10/05/2022 Coronary arteriosclerosis 07/17/2022 Assessment & Plan (06/14/2023 3:03 PM EDT): Coronary artery disease is stable Continue GDMT- ASA, labetalol, zetia continue risk factor modifications- heart healthy diet, regular exercise as tolerated and continue all medications. 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 Moderate to severe aortic stenosis. Low-flow low gradient is noted. Mean gradient 13 mmHg, LV stroke-volume index 30 mL/m , MELY 1.0 cm , DVI 0.3. Mild aortic regurgitation. Mild mitral regurgitation. Mild to moderate tricuspid regurgitation. Moderately elevated right-sided pressures. RVSP 58 mmHg. Small mostly posterior pericardial effusion. Assessment & Plan (06/14/2023 3:05 PM EDT): Recent admit to [facility] for shortness of breath, acute HFpEF with ARTUR. BNP 3311, BUN 26, CR 1.5-1.9, LFT normal, K+ normal. Troponin level negative. CXR showed vascular congestion Pt was admitted and diuresed as inpt. [facility] III Continue GDMT- remains on jardiance and lasix 60 mg daily for diuresis Monitor daily weights, I&O, fluid restriction 1.5-2L/day, renal function and electrolytes- Script for BMP and CBC provided pt is also seeing PCP today Aortic valve disorder 03/18/2012 Type 1 diabetes mellitus 03/18/2012 Sleep apnea 03/18/2012 Primary hypertension 03/18/2012 Dyspnea 03/18/2012 Pulmonary heart disease, unspecified 03/18/2012 Immunizations Name Administration Dates Next Due Covid ([employer]) Bivalent Osmel ter =>12 YRS 10/21/2022 Influenza, Unspecified 08/20/2023,2021,09/11/2021,08/27,08/15/2020,08/15/2019,08/29/2018 ,08/05/2017 Influenza, trivalent, adjuvanted 08/27/2020 Pfizer Covid-19 Vaccine, & , Fall 2022-08/16/2023 Pfizer SARS-CoV-2 Vaccination 08/26/2021, 021,12/09/2020 Pneumococcal Conjugate PCV 13 08/16/2017 Pneumococcal Polysaccharide PPV23 01/28/2015 Pneumococcal, Unspecified 01/28/2015 RSV, Adult, Bivalent 10/21/2023 Tdap 10/30/2019 Zoster, Recombinant 11/06/2020,10/30/2019 Zoster, live 09/20/2015 Social History Tobacco Use Types Packs/Day Years Used Date Smoking Tobacco: Former Cigarettes Smokeless Tobacco: Never Alcohol Use Standard Drinks/Week Comments Not Currently 0 (1 standard drink = 0.6 oz pur e alcohol) PHQ-2 Answer Date Recorded Patient Health Questionnaire-2 Score 0 01/03/2025 [place] Safety & Environment Answer Date Rec orded Fear of Current or Ex-Partner Not on file Emotionally Abused Not on file 01/06/2024 Physically Abused Not on file 01/06/2024 Sexually Abused Not on file 01/06/2024 Physically or Sexually Abused Not on file Sex and Gender Information Value Date Recorded Sex Assigned at Male 06/10/2023 8:02 PM EDT Gender Identity Male 06/10/2023 8:02 PM EDT Sexual Orientation Heterosexual or Straight 05/16 8:02 PM EDT Job Start Date Occupation Industry Not on file Not on file Not on file Last Filed Vital Signs Vital Sign Reading Time Taken Comments Blood Pressure 165/67 03/12/2025 9:46 AM EDT Pulse 95 03/12/2025 9:46 AM EDT Temperature 36.1 C (96.9 F) 10/30/2020 2:57 PM EST Respiratory Rate 11 02/28/2025 1:00 PM EDT Oxygen Saturation 93% 03/12/2025 9:46 AM EDT Inhaled Oxygen Concentration - - Weight 85.3 kg (188 lb) 03/12/2025 9:46 AM EDT Height 185.4 cm (6' 1 ) 03/12/2025 9:46 AM EDT Body Mass Index 24.8 03/12/2025 9:46 AM EDT Plan of Treatment Upcoming Encounters Date Type Department Care Team (Late st Contact Info) Description 05/10/2025 10:00 AM EDT Hospital Encounter [facility] [[email or web address]] Heart [facility] [place] [facility] [address] [place] [phone] Mike Cisneros MD [address] [place] [phone] Nonrheumatic aortic valve stenosis; Chronic diastolic congestive heart failure (CMS/HCC); Shortness of breath; Abnormal findings on diagnostic imaging of heart and coronary circulation 05/10/2025 10:00 AM EDT - 05/10/2025 11:00 AM EDT Surgery [facility] [address] [place] [phone] Mike Cisneros MD [address] [place] [address] Coronary angiography [53507 (CPT )] 07/04/2025 1:00 PM EDT Office Visit [facility] [address] [place] [phone] Jeff Hutton MD [address] [place] [id number] Procedures Procedure Name Priority Date/Time Associated Diagnosis Comments TRANSESOPHAGEAL ECHO (MARK) W/ LIMITED DOPPLER AND COLOR FLOW Routine 02/28/2025 12:21 PM EDT Longstanding persistent atrial fibrillation (CMS/HCC) 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 from Last 3 Months Results * TRANSESOPHAGEAL ECHO (MARK) W/ LIMITED DOPPLER AND COLOR FLOW (02/28/2025 12:21 PM EDT) Anatomical Region Laterality Modality Other 02/28/2025 11:3 8 AM EDT Narrative 02/28/2025 6:13 PM EDT 1 [facility] [[email or web address]] Heart Station [address] [place] [address] [phone] (fax) Transesophageal Echocardiogram-[facility] [[email or web address]] Name: NADIR HEREDIA Study Date: 02/28/2025 11:38 AM B/P: 152 mmHg/76 mmHg HR: Date of : 1940 Location: [facility] [[email or web address]] Height: 73 in. Age: 85 year(s) Patient Room: Weight: 188 lb. Gender: Male Patient Status: OutPt BSA: 2.1 m2 Indication: Atrial Fibrillation Examination: MARK/Limited Doppler/CFI, Agitated Saline Image Quality: Good Patient Consent: Informed, written consent was obtained for the procedure Exam Location: A MARK was performed in the Director Of Business Development without complications Anesthesia Pharyngeal anesthesia with viscous Lidocaine Conclusions Left Ventricle: The left ventricle is normal size. Global left ventricular systolic function is hyperdynamic. The EF is 70 % visually. Left ventricular wall thickness is severely increased. Right Ventricle: The right ventricle appears normal in size. Right ventricular systolic function appears normal. Left Atrium: The left atrium is severely enlarged. IAS: Agitated saline injections suggest a PFO (with Valsalva). Mitral Valve: Mild mitral regurgitation. Aortic Valve: Severe aortic valve calcification is present. Restricted opening movement of the aortic valve is present. Mild-moderate aortic valve regurgitation. Moderate to severe aortic stenosis (appears severe on 2 D). The regurgitant jet is directed centrally. Tricuspid Valve: Mild tricuspid regurgitation. Aorta: Mild atherosclerotic plaque is seen in the aorta. Pericardium: There is a small pericardial effusion. Medications Date Time Name Route Form Dose Units Ordered By Given By Comment 02/28/2025 12:24 PM Midazolam HCL (Versed) 3 milligrams 02/28/2025 12:24 PM Fentanyl (Opiates) 25 micrograms Measurements Left Ventricle Label Value Normal Value LVEF visual 70 % Aortic Valve Label Value Normal Value AV VTI 83.9 cm Valvular Assessment LVOT 0.7 - 1.1 m/sec Aortic Valve 1.0 - 1.7 m/sec Mitral Valve 0.6 - 1.3 m/sec Tricuspid Valve 0.3 - 0.7 m/sec Pulmonic Valve 0.6 - 0.9 m/sec Regurgitation Mild-Mod Mild Mild No Stenosis ModS No No No Max Velocity 3.39 m/s Max Gradient 46.00 mmHg Mean Gradient 26.00 mmHg Findings Left Ventricle: The left ventricle is normal size. Global left ventricular systolic function is hyperdynamic. The EF is 70 % visually. Left ventricular wall thickness is severely increased. Right Ventricle: The right ventricle appears normal in size. Right ventricular systolic function appears normal. Left Atrium: The left atrium is severely enlarged. Spontaneous contrast in the left atrium. Left Atrium Appendage: The left atrial appendage is monolobular. Normal left atrial appendage, no thrombus seen. IAS: Agitated saline injections suggest a PFO (with Valsalva). Right Atrium: The right atrium appears enlarged. Mitral Valve: The mitral valve is normal in mobility and thickness. Mild mitral regurgitation. No mitral valve stenosis. Aortic Valve: Severe aortic valve calcification is present. Restricted opening movement of the aortic valve is present. Aortic valve is tri-leaflet. Mild-moderate aortic valve regurgitation. Moderate to severe aortic stenosis (appears severe on 2 D). The regurgitant jet is directed centrally. Tricuspid Valve: Normal tricuspid valve. Mild tricuspid regurgitation. No tricuspid valve stenosis. Pulmonic Valve: Normal pulmonary valve. No pulmonary regurgitation. No pulmonic valve stenosis. Aorta: Mild atherosclerotic plaque is seen in the aorta. The aortic root exhibits normal size. Great Vessels: Pulmonary Veins: Doppler flow pattern is normal. Pericardium: There is a small pericardial effusion. Procedure Staff Reading Group: [facility] Teacher: Katelyn Martinez RDCS Ordering Physician: Mike Cisneros MD Procedure Note Kyleigh Faulkner MD - 02/28/2025 1 [facility] [[email or web address]] Heart Station [address] [place] [address] (fax) Transesophageal Echocardiogram-[facility] [[email or web address]] Name: NADIR HEREDIA Study Date: 02/28/2025 11:38 AM B/P: 152 mmHg/76 mmHg HR: Date of : 1940 Location: [facility] [[email or web address]] Height: 73 in. Age: 85 year(s) Patient Room: Weight: 188 lb. Gender: Male Patient Status: OutPt BSA: 2.1 m2 Indication: Atrial Fibrillation Examination: MARK/Limited Doppler/CFI, Agitated Saline Image Quality: Good Patient Consent: Informed, written consent was obtained for the procedure Exam Location: A MARK was performed in the Director Of Business Development without complications Anesthesia Pharyngeal anesthesia with viscous Lidocaine Conclusions Left Ventricle: The left ventricle is normal size. Global left ventricular systolic function is hyperdynamic. The EF is 70 % visually. Left ventricular wall thickness is severely increased. Right Ventricle: The right ventricle appears normal in size. Right ventricular systolic function appears normal. Left Atrium: The left atrium is severely enlarged. IAS: Agitated saline injections suggest a PFO (with Valsalva). Mitral Valve: Mild mitral regurgitation. Aortic Valve: Severe aortic valve calcification is present. Restricted opening movement of the aortic valve is present. Mild-moderate aortic valve regurgitation. Moderate to severe aortic stenosis (appears severe on 2 D). The regurgitant jet is directed centrally. Tricuspid Valve: Mild tricuspid regurgitation. Aorta: Mild atherosclerotic plaque is seen in the aorta. Pericardium: There is a small pericardial effusion. Medications Date Time Name Route Form Dose Units Ordered By Given By Comment 02/28/2025 12:24 PM Midazolam HCL (Versed) 3 milligrams 02/28/2025 12:24 PM Fentanyl (Opiates) 25 micrograms Measurements Left Ventricle Label Value Normal Value LVEF visual 70 % Aortic Valve Label Value Normal Value AV VTI 83.9 cm Valvular Assessment LVOT 0.7 - 1.1 m/sec Aortic Valve 1.0 - 1.7 m/sec Mitral Valve 0.6 - 1.3 m/sec Tricuspid Valve 0.3 - 0.7 m/sec Pulmonic Valve 0.6 - 0.9 m/sec Regurgitation Mild-Mod Mild Mild No Stenosis ModS No No No Max Velocity 3.39 m/s Max Gradient 46.00 mmHg Mean Gradient 26.00 mmHg Findings Left Ventricle: The left ventricle is normal size. Global left ventricular systolic function is hyperdynamic. The EF is 70 % visually. Left ventricular wall thickness is severely increased. Right Ventricle: The right ventricle appears normal in size. Right ventricular systolic function appears normal. Left Atrium: The left atrium is severely enlarged. Spontaneous contrast in the left atrium. Left Atrium Appendage: The left atrial appendage is monolobular. Normal left atrial appendage, no thrombus seen. IAS: Agitated saline injections suggest a PFO (with Valsalva). Right Atrium: The right atrium appears enlarged. Mitral Valve: The mitral valve is normal in mobility and thickness. Mild mitral regurgitation. No mitral valve stenosis. Aortic Valve: Severe aortic valve calcification is present. Restricted opening movement of the aortic valve is present. Aortic valve is tri-leaflet. Mild-moderate aortic valve regurgitation. Moderate to severe aortic stenosis (appears severe on 2 D). The regurgitant jet is directed centrally. Tricuspid Valve: Normal tricuspid valve. Mild tricuspid regurgitation. No tricuspid valve stenosis. Pulmonic Valve: Normal pulmonary valve. No pulmonary regurgitation. No pulmonic valve stenosis. Aorta: Mild atherosclerotic plaque is seen in the aorta. The aortic root exhibits normal size. Great Vessels: Pulmonary Veins: Doppler flow pattern is normal. Pericardium: There is a small pericardial effusion. Procedure Staff Reading Group: [facility] Teacher: Katelyn Martinez RDCS Ordering Physician: Mike Cisneros MD Mike Cisneros MD CV ECHO PROCEDURES from Last 3 Months Care Teams Chair Mender Relationship Specialty Start Date End Date Pj Sung MD [address] [facility] [place] [address] PCP - General 07/17/22
--- OUTSIDE RECORDS SUMMARY | 2025-04-13 07:29 | XMS_ITS | Encounter Summary ---
Author Organization [facility] Address [address] [place] [address] Care Team Providers Care Timber Surveyor Name Role Phone Pj Sung MD Primary Care Provider [phone] Encounter Details Date Type Department Care Team (Late st Contact Info) Description 07/17/2022 Abstract [facility] Heart at [facility] [address] [place] [phone] Cheyanne Ventura MA Social History Tobacco Use Types Packs/Day Years Used Date Smoking Tobacco: Never Assessed Sex and Gender Information Value Date Recorded Sex Assigned at Male 06/10/2023 8:02 PM EDT Gender Identity Male 06/10/2023 8:02 PM EDT Sexual Orientation Heterosexual or Straight 05/16 8:02 PM EDT Job Start Date Occupation Industry Not on file Not on file Not on file documented as of this encounter Plan of Treatment Upcoming Encounters Date Type Department Care Team (Late st Contact Info) Description 05/10/2025 10:00 AM EDT Hospital Encounter [facility] Heart and Vascular Center Vascular Lab [address] [place] [phone] Mike Cisneros MD [address] [facility] [address] [facility] [place] [phone] Nonrheumatic aortic valve stenosis; Chronic diastolic congestive heart failure (CMS/HCC); Shortness of breath; Abnormal findings on diagnostic imaging of heart and coronary circulation 05/10/2025 10:00 AM EDT - 05/10/2025 11:00 AM EDT Surgery [facility] and [facility] Vascular Lab [address] [place] [phone] Mike Cisneros MD [address] [facility] [place] [address] Coronary angiography [58952 (CPT )] 07/04/2025 1:00 PM EDT Office Visit [facility] [address] [place] [phone] Jeff Hutton MD [address] [place], [place] [phone] documented as of this encounter Visit Diagnoses Not on filedocumented in this encounter Care Teams Timber Surveyor Relationship Specialty Start Date End Date Pj Sung MD [address] [facility] [place] [address] PCP - General 07/17/22 documented as of this encounter
--- OUTSIDE RECORDS SUMMARY | 2025-04-13 07:29 | XMS_ITS | Clinical Summary ---
Author Organization [employer] Address [id number] [address] [place] [address] Care Team Providers Care Production Line Welder Name Role Phone Pj Sung MD Primary Care Provider [phone] Encounters Date Type Department Care Team Description 02/15/2025 Orders Only [facility] [address] [place] [address] Transcribe, Orders Support User Pain (Primary Dx) 02/14/2025 3:25 PM EDT Ancillary Procedure [facility] [address] [place] [address] Pain 02/14/2025 3:05 PM EDT Ancillary Procedure [facility] [address] [place] [address] Pain 02/14/2025 1:48 PM EDT - 02/17/2025 12:44 PM EDT Emergency [facility] [address] [place] [phone] Discharge Disposition: Telemedicine Discharge 02/14/2025 8:25 AM EDT Ancillary Procedure [facility] [address] [place] [phone] Pain from Last 3 Months Social History Tobacco Use Types Packs/Day Years Used Date Smoking Tobacco: Never Assessed Sex and Gender Information Value Date Recorded Sex Assigned at Not on file Legal Sex Male 11:32 AM EDT Gender Identity Not on file Sexual Orientation Not on file Plan of Treatment Health Maintenance Due Date Last Done Comments Depression Screening 1952 Tobacco Screening 1952 Fall Risk Screening 02/07/2004 COVID-19 Vaccine (6 2023-2 5 season) 2024 08/16/2023, 10/21/2022, 08/26/2021, Additional history exists Influenza Vaccine 07/16/2025 08/20/2023, , 09/11/2021, Additional history exists DTaP,Tdap and Td Vaccines (2 - Td or Tdap) 10/30/2029 10/30/2019 Zoster (Shingles) Vaccine Completed 2019, 10/30/2019, 09/20/2015 Medical Devices Not on file Procedures Procedure Name Priority Date/Time Associated Diagnosis Comments MR MRA NECK WO CONT Routine 02/14/2025 3:25 PM ED T Pain MR MRA HEAD WO CONT Routine 02/14/2025 3:05 PM ED T Pain MR BRAIN WO CONT Routine 02/14/2025 8:25 AM EDT Pain from Last 3 Months Results * MRA neck without contrast (02/14/2025 3:25 PM EDT) us Scanning Provider External IMG MRI ORDERABLES Fi nal Result * MRA head without contrast (02/14/2025 3:05 PM EDT) us Scanning Provider External IMG MRI ORDERABLES Fi nal Result * MR brain without contrast (02/14/2025 8:25 AM EDT) us Scanning Provider External IMG MRI ORDERABLES Fi nal Result from Last 3 Months Insurance MEDICARE [facility] Care Teams Production Line Welder Relationship Specialty Start Date End Date Pj Sung MD [address] [place] [address] PCP - General Family Medicine 02/14/25
--- OUTSIDE RECORDS SUMMARY | 2025-04-13 07:29 | XMS_ITS | Clinical Summary ---
Author Organization [facility] Address [address] [place] [address] Care Team Providers Care In Flight Refueling Operator Name Role Phone Pj Sung MD Primary Care Provider [phone] Allergies Active Allergy Reactions Criticality Noted Date Comments Iodinated Contrast Media 07/17/2022 Nitroglycerin 07/17/2022 Apkukan-Uma-Qjo Reductase Inhibitors 07/17/2022 Medications Medication Sig Dispensed [...] (06/14/2023 3:05 PM EDT): Recent admit to [facility] for shortness of breath, acute [...] Dyspnea 03/18/2012 Pulmonary heart disease, unspecified 03/18/2012 Encounters Date Type Department Care Team Description 03/12/2025 9:30 AM EDT Office Visit [address] [address] Mike Cisneros MD Longstanding persistent atrial fibrillation (CMS/HCC) (Primary Dx); Nonrheumatic aortic valve stenosis; Pericardial effusion; Pulmonary hypertension (CMS/HCC); Chronic diastolic congestive heart failure (CMS/HCC); 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; Primary hypertension; Stage 3b chronic kidney disease (CMS/HCC); Weakness of both lower extremities; Shortness of breath; Abnormal findings on diagnostic imaging of heart and coronary circulation 02/28/2025 10:46 AM EDT - 02/28/2025 11:59 PM EDT Hospital Encounter [facility] [address] [place] [phone] Longstanding persistent atrial fibrillation (CMS/HCC); 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 Discharge Disposition: Home or Self Care () 02/28/2025 Travel 02/21/2025 Telephone [facility] [address] [place] [phone] Ni Amador, BRANDEN 02/19/2025 Orders Only [facility] [address] [place] [address] Stephanie Carl MA Longstanding persistent atrial fibrillation (CMS/HCC); 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 from Last 3 Months Immunizations Name Administration Dates Next Due Covid (Red Tricycle) Bivalent Osmel ter =>12 YRS 10/21/2022 Influenza, Unspecified 08/20/2023,2021,09/11/2021,08/27,08/15/2020,08/15/2019,08/29/2018 ,08/05/2017 Influenza, trivalent, adjuvanted 08/27/2020 Pfizer Covid-19 Vaccine, 12& up, Fall 2022-08/16/2023 Pfizer SARS-CoV-2 Vaccination 08/26/2021, 021,12/09/2020 Pneumococcal Conjugate PCV 13 08/16/2017 Pneumococcal Polysaccharide PPV23 01/28/2015 Pneumococcal, Unspecified 01/28/2015 RSV, Adult, Bivalent 10/21/2023 Tdap 10/30/2019 Zoster, Recombinant 11/06/2020,10/30/2019 Zoster, live 09/20/2015 Family History Medical History Relation Name Comments Coronary artery disease Father Relation Name Status Comments Father Social History Tobacco Use Types Packs/Day Years [...] Description 05/10/2025 10:00 AM EDT Hospital Encounter [facility] [place] [facility] [address] [place] [address] Mike Cisneros MD [address] [place] [address] Nonrheumatic aortic valve stenosis; Chronic diastolic congestive heart failure (CMS/HCC); Shortness of breath; Abnormal findings on diagnostic imaging of heart and coronary circulation 05/10/2025 10:00 AM EDT - 05/10/2025 11:00 AM EDT Surgery [facility] [place] [facility] [address] [facility] [place] [phone] Mike Cisneros MD [address] [place] [address] Coronary angiography [11193 (CPT )] 07/04/2025 1:00 PM EDT Office Visit [facility] [address] [place] [phone] Jeff Hutton MD [address] [place] [address] [phone] Health Maintenance Due Date Last Done Comments Diabetes: Hemoglobin A1C 1940 Medicare Annual Wellness (AWV) 1940 Diabetes: Retinopathy Screening 1950 COVID-19 Vaccine ( season) 2024 08/16/2023, 10/21/2022, 08/26/2021, Additional history exists Depression Screening 01/03/2026 01/03/2025 Fall Risk Screening 01/03/2026 01/03/2025 Adult Tetanus 10/30/2029 10/30/2019 Pneumococcal Vaccine: 65+ Years Completed 08/16/2017, 01/28/2015, 01/28/2015 Zoster Vaccines Completed 11/06/2020, 10/15, 09/20/2015 Influenza Vaccine Completed 08/15/2024, , 08/18/2022, Additional history exists HIB Vaccines Aged Out No longer eligi ble based on patient's age to complete this topic HPV Vaccines Aged Out No longer eligi ble based on patient's age to complete this topic IPV Vaccines Aged Out No longer eligi ble based on patient's age to complete this topic Meningococcal B Vaccine Aged Out No l onger eligible based on patient's age to complete this topic Meningococcal Vaccine Aged Out No sergio bea eligible based on patient's age to complete this topic Rotavirus Vaccines Aged Out No longer eligible based on patient's age to complete this topic Procedures Procedure Name Priority Date/Time Associated Diagnosis [...] EDT Narrative 02/28/2025 6:13 PM EDT [facility] Heart Station [address] [place] [address] [phone] (fax) Transesophageal Echocardiogram-[facility] Name: NADIR HEREDIA Study Date: 02/28/2025 11:38 AM B/P: 152 mmHg/76 mmHg HR: Date of : 1940 Location: [facility] Height: 73 in. Age: 85 year(s) Patient Room: Weight: 188 lb. Gender: Male Patient Status: OutPt BSA: 2.1 m2 Indication: Atrial Fibrillation Examination: MARK/Limited Doppler/CFI, Agitated Saline Image Quality: Good Patient Consent: Informed, written consent was obtained for the procedure Exam Location: A MARK was performed in the [employer] [facility] without complications Anesthesia Pharyngeal anesthesia with viscous [...] small pericardial effusion. Procedure Staff Reading Group: [facility] Director Critical Care: Katelyn Martinez RDCS Ordering Physician: Mike Cisneros MD Procedure Note Kyleigh Faulkner MD - 02/28/2025 1 [facility] Heart Station [address] [place] [address] [phone] (fax) Transesophageal Echocardiogram-[facility] Name: NADIR HEREDIA Study Date: 02/28/2025 11:38 AM B/P: 152 mmHg/76 mmHg HR: Date of : 1940 Location: [facility] Height: 73 in. Age: 85 year(s) Patient Room: Weight: 188 lb. Gender: Male Patient Status: OutPt BSA: 2.1 m2 Indication: Atrial Fibrillation Examination: MARK/Limited Doppler/CFI, Agitated Saline Image Quality: Good Patient Consent: Informed, written consent was obtained for the procedure Exam Location: A MARK was performed in the [employer] without complications Anesthesia Pharyngeal anesthesia with viscous [...] small pericardial effusion. Procedure Staff Reading Group: [facility] Director Critical Care: Katelyn Martinez RDCS Ordering Physician: Mike Cisneros MD Mike Cisneros MD CV ECHO PROCEDURES from Last 3 Months Care Teams In Flight Refueling Operator Relationship Specialty Start Date End Date Pj Sung MD [address] [facility] [place] [address] PCP - General 07/17/22
--- OUTSIDE RECORDS SUMMARY | 2025-04-13 07:30 | XMS_ITS | CCD ---
Author Organization [facility] CliniSyma Care Team Providers Care Community Associate Name Role Phone PHYSICIAN, DEFAULT Admitting Unavailable PHYSICIAN, DEFAULT Attending Unavailable VAN YOUSSEF Primary Care Unavailable Van Youssef Primary Care Physician MIKAEL ., DR ARAUJO Primary Care Unavailable HOY ., DR ARAUJO Consulting Unavailable HOY ., DR ARAUJO Attending Unavailable HOY ., DR ARAUJO Admitting Unavailable ZIEBER, DR CLOVER Zimmer Consulting Unavailable [place], DR CRAMER Consulting Unavailable HOY ., DR ARAUJO Primary Care Unavailable [place], DR CRAMER Attending Unavailable [place], DR CRAMER Admitting Unavailable [place], DR CRAMER Consulting Unavailable HOY ., DR ARAUJO Primary Care Unavailable [place], DR CRAMER Attending Unavailable [place], DR CRAMER Admitting Unavailable HOY ., DR ARAUJO Consulting Unavailable HOY ., DR ARAUJO Primary Care Unavailable HOY ., DR ARAUJO Attending Unavailable HOY ., DR ARAUJO Admitting Unavailable [place], DR CRAMER Consulting Unavailable HOY ., DR ARAUJO Primary Care Unavailable [place], DR CRAMER Attending Unavailable [place], DR CRAMER Admitting Unavailable HOY ., DR [...] FRANCISCO Consulting Unavailable PREETI ROBERTS Consulting Unavailable Mikael GUSTAFSON, Van Fernandez Primary Care Provider [phone] NKANSAH-AMANKRA, MARQUIS Attending Unavail able NKANSAH-AMANKRA, MARQUIS [...] Unavail able NKANSAH-AMANKRA, MARQUIS Attending Unavail able BLAISE CHICAS Attending Unavailable BLAISE CHICAS Attending Unavailable BLAISE CHICAS Attending Unavailable BLAISE CHICAS Attending Unavailable BLAISE CHICAS Attending Unavailable BARRIE MONTOYA Attending Unavailable BLAISE CHICAS Attending Unavailable RODNEY JOY Attending Unavailable BLAISE CHICAS Attending Unavailable BLAISE CHICAS Attending Unavailable MOUKARBCLARIBEL DINH Attending Unavailable MOUKARBEL, CLARIBEL Attending Unavailable MOUKARBELCLARIBEL Attending Unavailable MOUKARBELCLARIBEL Referring Unavailable [place] Attending Unavailable [place], RUTHIE Attending Unavailable AMYJEFF Attending Unavailable Van Youssef MD Primary Care Provider [phone] Van Youssef MD Primary Care Provider [phone] Allergies Allergy Classification Reported Allergen(s) Allergy Type Date of Onset Reaction(s) Facility (20 sources) Aminolevulinic Acid; Translations: [aminolevulinic acid] Drug Allergy 11-04-20 13 Unknown [facility] Repository (1 source) NITRO PATCH; Translations: [NITRO PATCH] Propensity to adverse reactions (disorder) 03-18-20 12 [facility] Repository (18 sources) Contrast media; Translations: [Contrast Dye] Drug allergy Unknown (qualifier value) [facility] (20 sources) Hmg-Coa Reductase Inhibitors (Statins); Translations: [statins] Allergy to substance 08-24-20 23 Unknown [facility] (20 sources) Nitroglycerin; Translations: [nitroglycerin] Drug Allergy 02-23-20 22 Unknown (qualifier value) [facility] (2 sources) black walnut pollen extract; Translations: [EILLQAQ-GQN-THV REDUCTASE INHIBITORS] Drug Allergy 04-21-20 17 [facility] Repository (1 source) Iodine (And Iodine Containting Drugs) Drug allergy (disorder) 05-28-20 16 [facility] Repository (20 sources) Nitroglycerin Allergy to substance 02-23-20 22 [facility] (20 sources) Iodinated Contrast Media; Translations: [IODINATED CONTRAST MEDIA] Drug Allergy 07-17-20 22 [facility] (4 sources) Simvastatin; Translations: [simvastatin] Drug Allergy elevated liver enzymes [facility] (1 source) Aminolevulinic Acid; Translations: [aminolevulinic acid] Drug Allergy 11-04-20 13 [facility] Repository (1 source) Nitroglycerin; Translations: [Nitroglycerin Patch] Drug Allergy [facility] Repository Medications Current Medications Medication Drug Class(es) Dates Sig (Normalized) Sig (Original) acetaminophen 325 mg / HYDROcodone bitartrate 5 mg oral tablet (4 sources) Opioid Agonist Start: 10-16-2024 take 1 tablet by mouth every six hours as needed for pain, then take 2 tablets by mouth every six hours as needed for pain [place] 325 mg-5 mg oral tablet 1 tab(s), Oral, q6hr, 2 tab(s), Refill(s) 0, Take q6hrs as needed for pain., [facility]/pharmacy #[id number], 185, cm, 10/02/24 11:15:00 EST, [...] Blood Thinner Start Date: 01/09/19 Status: Ordered End: 04-10-2025 apixaban (Eliquis) 2.5 MG ta blet every 12 (twelve) hours. 04/10/2025 Discontinued aspirin 81 mg oral tablet (20 sources) [...] oral tablet (5 sources) Quinolone Antimicrobial Start: 024 take 1 tablet by mouth twice daily Cipro 500 mg Tab 500 mg = 1 tab(s), Oral, BID, Start 1 day prior to procedure., # 6 tab(s), Refills(s) 0, Pharmacy: [facility]/pharmacy #[id number], 185, cm, 10/02/24 11:15:00 EST, Height/Length Dosing, 91, kg, 10/02/24 11:15:00 EST, Weight Dosing Start Date: 10/16/24 Status: Ordered Start: 08-11-2024 take 1 tablet by joslyn th twice daily Cipro 500 mg Tab 500 mg = 1 tab(s), Oral, BID, Start 3 days prior to procedure., # 6 tab(s), Refills(s) 0, Pharmacy: [facility]/pharmacy #[id number], 185, cm, 08/08/24 10:28:00 EDT, [...] procedure., # 1 tab(s), Refills(s) 0, Pharmacy: [facility]/pharmacy #[id number], 185, cm, 10/02/24 11:15:00 EST, [...] DULoxetine 20 mg delayed release oral capsule (20 sources) Serotonin and Norepinephrine Reuptake Inhibitor Start: 08-01-2024 End: 01-28-2025 take 1 capsule by mouth at bedtime DULoxetine (Cymbalta) [address] capsule Indications: Neurogenic pain Take 1 capsule (20 mg) by mouth at bedtime 90 capsule 1 08/01/2024 Active empagliflozin 25 mg oral tablet (20 [...] take 1 tablet by mouth in the [facility] glimepiride (Amaryl) 4 MG tablet Take 1 [...] Daily Prior to colonoscopy Per physician's instructions, [facility]/pharmacy #[id number], 185, cm, 03/31/22 9:58:00 [...] week(s), # 42 tab(s), Refills(s) 0, Pharmacy: [facility]/pharmacy #[id number], 185, cm, 10/02/24 11:15:00 EST, Height/Length Dosing, 91, kg, 10/02/24 11:15:00 EST, Weight Dosing Start Date: 10/16/24 Stop Date: 10/30/24 Status: Ordered pioglitazone 30 mg oral tablet (20 sources) Peroxisome Proliferator Receptor alpha Agonist, Peroxisome Proliferator Receptor gamma Agonist, Thiazolidinedione Start: 08-28-2020 End: 04-10-2025 take 1 tablet by mouth once daily [...] tablet (20 sources) Anti-epileptic Agent Start: 08-01-2024 End: 04-10-2025 primidone (Mysoline) 250 MG tablet Indications: Benign essential tremor 1/2 tab BID 90 tablet 1 04/10/2025 Active Start: 01-11-2024 End: 08-01-2024 primidone (Mysoline) 50 MG t ablet Indications: Benign essential tremor 1 tab TID 270 tablet 3 01/11/2024 08/01/2024 Discontinued (Reorder) Start: 01-09-2019 take 1 tablet by joslyn th once daily at bedtime primidone 50 mg Tab 50 mg = 1 tab(s), Oral, Once a day (at bedtime), # 30 tab(s), Refills(s) 0, Seizure Start Date: 01/09/19 Status: Ordered rivaroxaban 15 mg oral tablet (3 sources) Factor Xa Inhibitor rivaroxaban (Xarelto) 15 MG tablet Take 15 mg by mouth Active SITagliptin 100 mg oral tablet (17 sources) Dipeptidyl Peptidase 4 Inhibitor Start: 01-09-20 take 100 mg by mouth once daily Januvia 100 mg, Oral, Daily, Refill(s) 0, High blood sugar Start Date: 01/09/19 Status: Ordered Spiriva Respimat 1.25 mcg/inh inhalation aerosol (1 source) Start: 01-09-20 Spiriva Respimat 1.25 mcg/inh inhalation aerosol 2 puff(s), Inhalation, Daily, Refill(s) 0, COPD Start Date: 01/09/19 Status: Ordered tamsulosin hydrochloride 0.4 mg oral capsule (20 sources) alpha-Adrenergic Ora Start: 01-09-20 take 0.4 mg by mouth once daily Flomax 0.4 mg, Oral, Daily, Refills(s) 0, Urinary discomfort Start Date: 01/09/19 Status: Ordered 60 actuat tiotropium 0.88975 mg/actuat inhalation spray (16 sources) Anticholinergic Start: 01-09-20 Spiriva Respimat 1.25 mcg/inh inhalation aerosol 2 [...] Discontinued Start: 08-28-2020 take 1 capsule by [facility] once daily Align 4 mg oral capsule 4 mg = 1 cap(s), Oral, Daily, Take after completing the Antibiotics course, # 28 cap(s), Refills(s) 0, Pharmacy: [facility]/pharmacy #[id number], 185, cm, 08/28/20 12:05:00 [...] water, # 160 cap(s), Refills(s) 1, Pharmacy: [facility]/pharmacy #[id number], 185, cm, 08/28/20 12:05:00 [...] disease (2 sources) Atherosclerotic heart disease of [place] coronary artery without angina pectoris; Translations: [Atherosclerotic heart disease of [place] coronary artery without angina pectoris] Onset: 03-12-2025 Chronic Deficiency and other anemia (1 source) Anemia, unspecified; Translations: [ANEMIA UNSPECIFIED] Onset: 03-04-2023 Episodic Diabetes mellitus with complications (14 sources) Type 2 diabetes mellitus with hyperglycemia; [...] unspecified] Onset: 08-08-2024 Episodic Heart valve disorders (9 sources) Nonrheumatic aortic (valve) stenosis; Translations: [Rheumatic [...] sources) Balanitis; 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] Onset: 08-08-2024 Chronic Late effects of cerebrovascular disease (7 sources) Sequelae of cerebral infarction; Translations: [Unspecified sequelae of cerebral infarction] Onset: 04-10-2025 04-10-2025 Chronic Mycoses (10 sources) Pain in toe; Translations: [Tinea unguium] 09-08-2024 Episodic Nausea and vomiting (10 sources) Nausea; Translations: [Nausea] Onset: 10-01-2023 Episodic Nutritional deficiencies (2 sources) Vitamin D deficiency, unspecified; Translations: [Vitamin D deficiency, unspecified] Onset: 01-03-2025 Chronic Occlusion or stenosis of precerebral arteries (7 sources) Bilateral stenosis of carotid arteries; Translations: [Occlusion and stenosis of bilateral carotid arteries] Onset: 04-10-2025 04-10-2025 Chronic Other aftercare (3 sources) Long-term current use of anticoagulant; Translations: [custodial (current) use of anticoagulants] Onset: 08-08-2024 Episodic [...] trunk] 08-24-2024 Episodic Other connective tissue disease (20 sources) Spasm of cervical paraspinous muscle; Translations: [Other muscle spasm] Onset: 01-07-2024 01-07-2024 Episodic Other connective tissue disease (20 sources) Neurogenic pain; Translations: [Neuralgia and neuritis, unspecified] Onset: 01-07-2024 01-07-2024 Episodic Other connective tissue disease (14 sources) Pain in right foot; Translations: [Pain in right foot] 09-08-2024 Episodic Other connective tissue disease (2 sources) Other symptoms and signs involving the musculoskeletal system; Translations: [Other symptoms and signs involving the musculoskeletal system] Onset: 03-12-2025 Episodic Other diseases of bladder and urethra [...] [Essential tremor] Onset: 01-07-2024 01-07-2024 Chronic Other lower respiratory disease (2 sources) Shortness of breath; Translations: [Shortness of breath] Onset: 07-17-2022 Episodic Other male genital disorders (9 sources) Acquired buried penis; 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] Onset: 08-08-2024 Chronic Other nervous system disorders (20 sources) Polyneuropathy; Translations: [Polyneuropathy, unspecified] Onset: 01-07-2024 01-07-2024 Chronic Other screening for suspected conditions (not mental disorders or infectious disease) (3 sources) Raised prostate specific antigen; Translations: [Elevated prostate [...] (6 sources) Drug therapy finding 08-08-2024 Unclassified (2 sources) Longstanding persistent atrial fibrillation; Translations: [Longstanding persistent atrial fibrillation] Onset: 03-12-2025 Unclassified (1 source) Other pericardial effusion (noninflammatory); Translations: [Other pericardial effusion (noninflammatory)] Onset: 10-05-2022 Viral infection (14 sources) Verruca plantaris; Translations: [Plantar wart] 09-08-2024 [...] Onset: 04-30-2022 Episodic Other aftercare (1 source) custodial (current) use of aspirin; Translations: [DRIER CURRENT USE OF ASPIRIN] Onset: 08-27-2022 Episodic Other aftercare (1 source) custodial (current) use of anticoagulants; Translations: [SENIOR LIVING CURRNT USE ANTICOAGULANTS] Onset: 08-27-2022 Episodic Other aftercare (1 source) Other rat 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 (current) drug therapy; Translations: [OTH SENIOR LIVING CURRENT DRUG THERAPY] Onset: 08-27-2022 Episodic Other circulatory disease (1 source) Other specified symptoms and signs involving the circulatory and respiratory systems; Translations: [OTH SPEC SX SIGNS INVLV CIRC RS] Onset: 06-19-2022 Episodic Other connective tissue disease (2 sources) [...] (noninflammatory); Translations: [Other pericardial effusion (noninflammatory)] Onset: 03-12-2025 Urinary tract infections (1 source) Urinary tract infection, site not specified; Translations: [UTI SITE NOT SPECIFIED] Onset: 08-27-2022 Episodic Results Test Name Value Interpretation Reference Range Facility Office Visiton 03-12-2025 Follow-up visit [id number] Nadir Beth 1940 M Date Provider Department Center 03/12/2025 Parris[facility]CL[facility]EL [facility] Family History Problem Relation Age of Onset Coronary artery disease Father Family Status - Relation Status Age at Father Level of Service:12823 UT OFFICE/OUTPATIENT ESTABLISHED HIGH MDM 40 MIN Normal [facility] HPon 02-28-2025 HP -- Attestation signed by Albaro Faulkner MD at 03/01/2025 6:06 PM I personally saw and examined the patient on the same date of service as resident/fellow Dr chilel. I discussed the findings and therapeutic plan with the resident/fellow Dr chilel. I agree with the documentation, except for any edits/updates below. Teaching Physician's Revisions: None Albaro Faulkner MD, [facility] History Of Present Illness Nadir Beth is a 85 y.o. male presenting with aortic stoneosis for MARK. Past Medical History He has a past medical history of Atrial fibrillation ([facility]), CHF (congestive heart failure) ([facility]), Chronic kidney disease, COPD (chronic obstructive pulmonary disease) ([facility]), Coronary artery disease, Diabetes mellitus ([facility]), Heart valve disease, Hypertension, Pericardial effusion, and Sleep apnea. Surgical History He has a past surgical history that includes Back surgery; Cholecystectomy; Hernia repair; Tonsillectomy; Cardioversion; Cardiac catheterization (04/30/2015); and Cardiac catheterization (01/07/2015). Social History He reports that he has quit smoking. His smoking use included cigarettes. He has never used smokeless tobacco. He reports that he does not currently use alcohol. He reports that he does not use drugs. Family History Family History Problem Relation Name Age of Onset Coronary artery disease Father Allergies Iodinated contrast media, Nitroglycerin, and Rjzqglf-qvu-xdf reductase inhibitors Medications (Not in a hospital admission) Review of Systems Constitutional: Negative for activity change and appetite change. HENT: Negative for congestion, facial swelling and hearing loss. Eyes: Negative for pain and discharge. Respiratory: Negative for apnea, cough, choking, chest tightness, shortness of breath, wheezing and stridor. Cardiovascular: Negative for chest pain and leg swelling. Gastrointestinal: Negative for abdominal distention, abdominal pain, blood in stool and diarrhea. Endocrine: Negative for cold intolerance and heat intolerance. Genitourinary: Negative for dysuria, flank pain and frequency. Musculoskeletal: Negative for arthralgias, back pain and gait problem. Skin: Negative for color change and pallor. Allergic/Immunologic: Negative. Neurological: Negative for dizziness and facial asymmetry. Hematological: Negative. Negative for adenopathy. Does not bruise/bleed easily. Psychiatric/Behavioral : Negative for agitation and behavioral problems. Last Recorded Vitals Visit Vitals BP 173/64 Pulse 77 Resp 18 SpO2 94% Smoking Status Former Physical Exam Vitals reviewed. Constitutional: Appearance: Normal appearance. He is normal weight. HENT: Head: Normocephalic. Nose: Nose normal. Mouth/Throat: Mouth: Mucous membranes are moist. Pharynx: Oropharynx is clear. Eyes: Pupils: Pupils are equal, round, and reactive to light. Cardiovascular: Rate and Rhythm: Normal rate and regular rhythm. Pulses: Normal pulses. Pulmonary: Effort: Pulmonary effort is normal. Breath sounds: Normal breath sounds. Abdominal: General: Abdomen is flat. Bowel sounds are normal. Palpations: Abdomen is soft. Musculoskeletal: General: Normal range of motion. Cervical back: Normal range of motion. Skin: General: Skin is warm and dry. Capillary Refill: Capillary refill takes less than 2 seconds. Coloration: Skin is not jaundiced. Findings: No bruising. Neurological: General: No focal deficit present. Mental Status: He is alert. Mental status is at baseline. Psychiatric: Mood and Affect: Mood normal. Relevant Lab Results No results found for: NA , K , CL , CO2 , BUN , CREATININE , GLUCOSE , CALCIUM , ANIONGAP , EGFR , BCR Relevant Imaging Results Transesophageal echo (MARK) Addendum: [facility] Heart Station [address] [place] [address] [phone] (fax) Transesophageal Echocardiogram-[facility] Name: NADIR BETH Study Date: 08/31/2023 02:31 PM B/P: 190 mmHg/86 mmHg HR: 92 bpm Date of : 1940 Location: [facility] Height: 71 in. Age: 83 year(s) Patient Room: Weight: 210 lb. Gender: Male Patient Status: OutPt BSA: 2.15 m2 Indication: Aortic Valve Stenosis Examination: MARK/Limited Doppler/CFI Image Quality: Excellent Patient Consent: Informed, written consent was obtained for the procedure Exam Location: A MARK was performed in the [employer] without complications Anesthesia Pharyngeal anesthesia with viscous Lidocaine Conclusions Left Ventricle: Global left ventricular systolic function is hyperdynamic. EF range is estimated at 65 % -70 %. No regional wall motion abnormality. Right Ventricle: The right ventricle appears normal in size. Normal right kari (more content not included)... Normal [facility] NURSNOTEon 02-28-2025 NURSNOTE Bedside swallow stud y completed and passed. RN educated pt on d/c instructions. This included: site care, limited physical activity, resume normal diet, future appointments, medications, and moderate sedation instructions. RN educated pt on when to notify physician and when to go to the hospital. RN encouraged pt to voice any questions or concerns, and answered any questions or concerns if pt verbalized. Pt was wheeled off of unit with all of belongings. Normal [facility] Telephoneon 02-21-2025 Telephone [id number] Nadir Beth 1940 M Date Provider Department Center 02/21/2025 RABIA KONG [facility] [place] [facility] Family History Problem Relation Age of Onset Coronary artery disease Father Family Status - Relation Status Age at Father [facility] Follow-Upon 01-03-2025 Follow-Up [id number] Nadir Beth 1940 M Date Provider Department Center 01/03/2025 [facility] NEPHRO Comprehensiv Family History Problem Relation Age of Onset Coronary artery disease Father Family Status - Relation Status Age at Father Level of Service:67581 UT OFFICE/OUTPATIENT ESTABLISHED MOD MDM 30 MIN () Reason for Visit and Comments: Follow-up [685337] [facility] Office Visiton 12-14-2024 Follow-up visit [id number] Nadir Beth 1940 M Date Provider Department Center 12/14/2024 [facility] Family History Problem Relation Age of Onset Coronary artery disease Father Family Status - Relation Status Age at Father Level of Service:88520 UT OFFICE/OUTPATIENT ESTABLISHED MOD MDM 30 MIN [facility] Ambulatory Visit Summaryon 0 12-04-2024 Ambulatory Visit Summary Ambulatory Visit Summary NADIR BETH :1940 Visit Date:12/04/2024 Ambulatory Visit Instructions Your Diagnosis BPH with urinary obstruction Gross hematuria Incomplete bladder emptying OAB (overactive bladder) Post-void dribbling Acquired buried penis Balanitis Anticoagulated Other obstructive and reflux uropathy Your Care Team Attending Physician - MARQUIS LOUISE MD Primary Care Physician - Van Youssef MD Referring Physician - ADRIAN GUSTAFSON, MARQUIS This Is Your Medications List acetaminophen-hydrocod one ([place] 325 mg-5 mg oral tablet) ciprofloxacin (Cipro [...] Follow-Up Appointments Wednesday 11:40 AM EDT With: LU OLMEDO PA-C Where: [facility] [address] You Need to Schedule the Following Appointments Follow Up with ADRIAN GUSTAFSON, ADAN CHO When: In 6 months Comments: Can see DIAMANTE, w/PVR Where: Medications What How Much When Why Instructions Unchanged acetaminophen-hydrocod one ([place] 325 mg-5 mg oral tablet) 1 Tablets [...] concerns Uncha (more content not included)... Normal [facility] Urology Office/Clinic Noteon 12-04-2024 Urology Office/Clinic [...] out of his penis. Pt presented to [facility] ER 10/28/24 due to clot retention. [...] 7. 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) Pt presented to [facility] ER 08/06/24 with redness on the [...] penis. -Cont symptomatic monitoring 8. Anticoagulated (Z79.01: salvage determiner (current) use of anticoagulants) Taking Eliquis, has restarted since [employer]. Hx of cardioversion. Increased risk for bleeding. Elevated r (more content not included)... Normal [facility] Comment on above: Result Comment: Elec tronically Signed By: ADRIAN GUSTAFSON, MARQUIS\.br\Date and Time Signed: 12/04/24 09:21 EST\.br\Electronically Co-Signed By: Deepthi Kevin\.br\Date and Time Co-Signed: 12/04/24 09:11 EST Ambulatory Visit Summaryon 1 01-07-2024 Ambulatory Visit Summary Ambulatory Visit Summary NADIR BETH :1940 Visit Date:11/06/2024 Ambulatory Visit Instructions Your Care Team Attending Physician - Mejia SINGH MD Primary Care Physician - Van Youssef MD This Is Your Medications List NIFEdipine acetaminophen-hydrocod one ([place] 325 mg-5 mg oral tablet) acyclovir apixaban [...] Follow-Up Appointments Wednesday 8:40 AM EST With: ADRIAN GUSTAFSON, MARQUIS Where: [facility] [address], [address] [place] [address]- Medications What How Much When Why Instructions Unchanged acetaminophen-hydrocod one ([place] 325 mg-5 mg oral tablet) 1 Tablets [...] survey v (more content not included)... Normal [facility] Ambulatory Visit Summaryon 1 01-03-2024 Ambulatory Visit Summary Ambulatory Visit Summary NADIR BETH :1940 Visit Date:11/02/2024 Ambulatory Visit Instructions Your Diagnosis BPH with urinary obstruction Gross hematuria Incomplete bladder emptying OAB (overactive bladder) Acquired buried penis Balanitis Anticoagulated Your Care Team Attending Physician - MARQUIS LOUISE MD Primary Care Physician - Van Youssef MD This Is Your Medications List acetaminophen-hydrocod one ([place] 325 mg-5 mg oral tablet) ciprofloxacin (Cipro [...] AM EST With: Where: [facility] [address] [place] [address] [place] [address]- Wednesday 8:40 AM EST With: MARQUIS LOUISE MD Where: [facility] [address], [address] [place] [address]- You Need to Schedule the Following Appointments Follow Up with ADRIAN GUSTAFSON, ADAN CHO When: Where: Medications What How Much When Why Instructions Unchanged acetaminophen-hydrocod one ([place] 325 mg-5 mg oral tablet) 1 Tablets [...] or co (more content not included)... Normal [facility] Urology Office/Clinic Noteon 11-02-2024 Urology Office/Clinic Note Urology Office/Clinic Note Chief Complaint er f/u HPI Staff 84 year old male here for [facility] ER F/U, difficulty urinating. Bladder scan [...] with voice recognition artificial intelligence software, specifically [email or web address], [employer] and or Center'd. Substitutions may have occurred due to the [...] out of his penis. Pt presented to [facility] ER 10/28/24 due to clot retention. [...] 6. 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) Pt presented to [facility] ER 08/06/24 with redness on the [...] for an (more content not included)... Normal [facility] Comment on above: Result Comment: Elec tronically Signed By: MARQUIS LOUISE MD\.br\Date and Time Signed: 11/02/24 08:40 EST\.br\Electronically Co-Signed By: Roxy Gatica\.br\Date and Time Co-Signed: 11/02/24 08:27 EST\.br\Electronically Co-Signed By: Roxy Gatica\.br\Date and Time Co-Signed: 11/02/24 08:29 EST Ambulatory Visit Summaryon 1 12-26-2023 Ambulatory Visit Summary Ambulatory Visit Summary NADIR LIN Joy :1940 Visit Date:10/25/2024 Ambulatory Visit Instructions Your Care Team Attending Physician - MARQUIS LOUISE MD Primary Care Physician - Van Youssef MD Referring Physician - MARQUIS LOUISE MD This Is Your Medications List NIFEdipine acetaminophen-hydrocod one ([place] 325 mg-5 mg oral tablet) acyclovir apixaban [...] LOUISE MD Where: [facility] [address], [address] [place] [address]- Medications What How Much When Why Instructions Unchanged acetaminophen-hydrocod one ([place] 325 mg-5 mg oral tablet) 1 Tablets [...] emptying Naus (more content not included)... Normal [facility] Inpatient Patient Summaryon 10-23-2024 Inpatient Patient Summary Inpatient Patient Summary [address] [address] Clinical Summary Person Information Name: NADIR BETH Age: 84 Years : 1940 Sex: Male PCP: Van Youssef MD Marital Status: Race: White Ethnicity: Non- or Language: Italian Visit Id: Visit Reason: BPH WITH URINARY OBSTRUCTION, INCOMPLETE BLADDER EMPTYING Speciality: Acuity: Enc Type: Outpatient Med Service: Surgery Arrival: 10/23/2024 13:48:15 Discharge: Dispo Type: Address: [address] [place] [address] [phone] Provider Notes: Diagnosis: Problems Active BPH with [...] This Visit Final Med List: acetaminophen-hydrocod one ([place] 325 mg-5 mg oral tablet) 1 Tablets [...] Patient Education Information: Benign Prostatic Hyperplasia Normal [facility] Main OR Intraoperative Recor don 10-23-2024 Main OR Intraoperative Record Main OR Intraoperative Record IntraOp Document Type FTURO Summary Primary Physician: MARQUIS LOUISE MD Finalized Date/Time: 10/23/24 15:03:19 Pt. Name: ZOEYIRANADIR STEPHEN/Sex: 1940 Male Med Rec #: [id number] Physician: MARQUIS LOUISE MD Financial #: [id number] Pt. Type: O Room/Bed: / Admit/Disch: 10/23/24 [...] 3 Case Attendee ADRIAN GUSTAFSON, Oliva Goel [facility], [place] [facility] Role Performed Surgeon - Primary Buggy Operator - Primary Scrub - Primary Time In [...] Implant Implant Identification Description UROLIFT Lot Number [id number] Floor Clerk UROLIFT Catalog ???# [id number] Expiration Date 11/30/25 [...] Oliva Goel (more content not included)... Normal [facility] Main OR Preoperative Recordo n 10-23-2024 Main OR Preoperative Record Main OR Preoperative Record Holding Area Document Type FTURO Summary Primary Physician: MARQUIS LOUISE MD Finalized Date/Time: 10/23/24 14:17:30 Pt. Name: NADIR BETH /Sex: 1940 Male Med Rec #: [id number] Physician: MARQUIS LOUISE MD Financial #: [id number] Pt. Type: O Room/Bed: / Admit/Disch: 10/23/24 [...] Complaints of Pain: No Skin Integrity Intact, Cale, Warm, & Dry Vitals - EU Blood Pressure 152/78 Pulse 84 bpm Respirations 18 br/min SPO2 90 % Additional None RN Reviewed Yes Specimens Collected Last Modified By: Oliva Goel 10/23/24 14:17:29 Finalized By: Oliva Goel Document Signatures Signed By: Preeti Kaur LPN 10/23/24 14:05 Oliva Goel 10/23/24 14:17 Normal [facility] Operative Reporton 4 Operative Report Operative [...] urethral meatus. We then placed the 20 Honduran cystoscope into the bladder. Bilobar hyperplasia was [...] able to easily navigate with a 20 [place]uran scope. Scope was then removed and an 18 [place]uran Palomares catheter was placed with return of light pink urine and no clots noted. This concluded the procedure. Patient was then transferred to PACU in stable condition. PLAN: Patient will follow-up in 2 days for Palomares catheter removal. 10 cc in the balloon Follow-up in 6 to 8 weeks with IPSS at that time Normal [facility] Comment on above: Result Comment: Elec tronically Signed By: ADRIAN GUSTAFSON, MARQUIS\.mary\Date and Time Signed: 10/23/24 15:06 EST Outpatient Surgery Discharge Instructionon 10-23-2024 Outpatient Surgery Discharge Instruction Outpatient Surgery Discharge Instruction [address] [address] Patient Discharge Instructions PERSON INFORMATION [...] amount of (more content not included)... Normal [facility] Ambulatory Visit Summaryon 1 12-02-2023 Ambulatory [...] Schedule the Following Appointments Follow Up with MARQUIS LOUISE MD, URL When: Where: Medications What How Much [...] Survey Yo (more content not included)... Normal [facility] Ambulatory Visit Summary Ambulatory Visit Summary [...] us for (more content not included)... Normal [facility] Urology Office/Clinic Noteon 10-02-2024 Urology Office/Clinic [...] with voice recognition artificial intelligence software, specifically [email or web address], [employer] and or Center'd. Substitutions may have occurred due to the [...] -Cipro 500mg bid start the day prior, [place] 325-5mg #2 q6hrs as needed for pain, [...] 3. 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) Pt presented to [facility] ER 08/06/24 with redness on the [...] and Lasix. -Dm control 6. Anticoagulated (Z79.01: salvage determiner (current) use of anticoagulants) Taking Eliquis. Hx of cardioversion. Elevated risk for periop complications. Based on patient's age, multiple medical comorbidities and his prostate size we discussed extensively that he will benefit most likely from a UroLift procedure. He is amenable to (more content not included)... Normal [facility] Comment on above: Result Comment: Elec tronically Signed By: ADRIAN GUSTAFSON, MARQUIS\.br\Date and Time Signed: 10/02/24 11:43 EST\.br\Electronically Co-Signed By: Roxy Gatica\.br\Date and Time Co-Signed: 10/02/24 11:21 EST\.br\Electronically Co-Signed By: Roxy Gatica\.br\Date and Time Co-Signed: 10/02/24 11:22 EST\.br\Electronically Co-Signed By: Roxy Gatica\.br\Date and Time Co-Signed: 10/02/24 11:23 EST Inpatient Patient Summaryon 09-25-2024 Inpatient Patient Summary Inpatient Patient Summary [place] [address] Clinical Summary Person Information Name: NADIR BETH Age: 84 Years : 1940 Sex: Male PCP: Van Youssef MD Marital Status: Race: White Ethnicity: Non- or Language: Italian Visit Id: Visit Reason: ENLARGED PROSTATE WITH URINARY OBSTRUCTION, INCOMPLETE BLADDER EMPTYING Speciality: Acuity: Enc Type: Outpatient Med Service: Surgery Arrival: 09/25/2024 11:42:27 Discharge: Dispo Type: Address: [address] [place] [address] [phone] Provider Notes: Diagnosis: Problems Active BPH with [...] LOUISE MD Follow up: With: Address: When: MARQUISMARY LOUISE [address] [address] [phone] Business (1) Comments: Follow-up in the office in 2 weeks to discuss next plan With: Address: When: MARQUIS ADRIAN [address] [place] [address] [phone] Business (1) Patient Education Information: Benign Prostatic Hyperplasia Normal [facility] Main OR Intraoperative Recor don 09-25-2024 Main OR Intraoperative Record Main OR Intraoperative Record IntraOp Document Type FTURO Summary Primary Physician: MARQUIS LOUISE MD Finalized Date/Time: 09/25/24 13:23:58 Pt. Name: NADIR BETH/Sex: 1940 Male Med Rec #: [id number] Physician: MARQUIS LOUISE MD Financial #: [id number] Pt. Type: O Room/Bed: / Admit/Disch: 09/25/24 [...] C KWABENA Role Performed Surgeon - Primary Buggy Operator - Primary Scrub - Primary Time In [...] SIZING ONLY Primary Procedure Yes Primary Surgeon ADRIAN GUSTAFSON, MARQUIS Start 09/25/24 13:05:00 Stop 09/25/24 13:15:00 Anesthesia [...] Out ADRIAN GUSTAFSON, Verified (If Participants Manasa CHO Applicable) Wolf Pool Laura C Time Out [...] Goel 09/25/24 13:23 Oliva Goel 09/25/24 13:23 [facility] Main OR Preoperative Recordo n 09-25-2024 Main OR Preoperative Record Main OR Preoperative Record Holding Area Document Type FTURO Summary Primary Physician: MARQUIS LOUISE MD Finalized Date/Time: 09/25/24 13:04:51 Pt. Name: NADIR BETH/Sex: 1940 Male Med Rec #: [id number] Physician: MARQUIS LOUISE MD Financial #: [id number] Pt. Type: O Room/Bed: / Admit/Disch: 09/25/24 [...] Complaints of Pain: No Skin Integrity Intact, Cale, Warm, & Dry Vitals - EU Blood Pressure Pulse Respirations SPO2 Additional None RN Reviewed Yes Specimens Collected Last Modified By: Oliva Goel 09/25/24 13:04:50 Finalized By: Oliva Goel Document Signatures Signed By: Preeti Kaur LPN 09/25/24 12:49 Oliva Goel 09/25/24 13:04 Normal [facility] Operative Reporton 4 Operative Report Operative [...] steps Impression and Plan Counseled: Family. Normal [facility] Comment on above: Result Comment: Elec tronically Signed By: ADRIAN GUSTAFSON, MARQUIS\.br\Date and Time Signed: 09/25/24 13:27 EST Outpatient Surgery Discharge Instructionon 09-25-2024 Outpatient Surgery Discharge Instruction Outpatient Surgery Discharge Instruction [place] [id number] Patient Discharge Instructions PERSON INFORMATION Name: NADIR [...] Follow up: With: Address: When: MARQUIS LOUISE [address] [place] [address] [phone] Business (1) Comments: Follow-up in the office in 2 weeks to discuss next plan With: Address: When: MARQUIS LOUISE [address] [place] [address] [phone] Business (1) Comment: PATIENT EDUCATION INFORMATION Instructions: [...] radio frequen (more content not included)... Normal [facility] No Panel Informationon 08-24 [facility] Ambulatory Visit Summaryon 0 08-08-2024 Ambulatory Visit Summary Ambulatory Visit Summary KIRIT NADIR L :1940 Visit Date:08/08/2024 Ambulatory Visit Instructions Your [...] 525 mg (more content not included)... Normal [facility] Urology Office/Clinic Noteon 08-08-2024 Urology Office/Clinic Note Urology Office/Clinic Note Chief Complaint follow up to [facility] ER HPI Staff 84 year old male new patient follow up to [facility] 08/06/24 presented due to redness on [...] 1. 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) Pt presented to [facility] ER 08/06/24 with redness on the [...] and urinary channel, (more content not included)... [facility] Comment on above: Result Comment: Elec tronically Signed By: MARQUIS LOUISE MD\.br\Date and Time Signed: 08/08/24 11:05 EDT\.br\Electronically Co-Signed By: Roxy Gatica\.br\Date and Time Co-Signed: 08/08/24 10:46 EDT\.br\Electronically Co-Signed By: Roxy Gatica\.br\Date and Time Co-Signed: 08/08/24 10:53 EDT Office Visiton 07-05-2024 Follow-up visit [id number] Nadir Beth Joy 1940 M Date Provider Department Center 07/05/2024 [facility] Comprehensiv Family History Problem Relation Age of Onset Coronary artery disease Father Family Status - Relation Status Age at Father Level of Service:06147 UT OFFICE/OUTPATIENT ESTABLISHED MOD MDM 30 MIN Reason for Visit and Comments: Follow-up [994154] [facility] 06-20-2024 36 Regarding echo resul [...] her he should have another echo at [facility] in Oct 2024, prior to his follow up with Dr. Cisneros in Nov 2024. She verbalized understanding. Echo order faxed to [facility]. [facility] 06-14-2024 36 Patients called and stating that dr. Linda told her to call and let him know that her husbands blood pressure is better and she would like a call back. [facility] 06-09-2024 36 Spoke with patient's Kervin and made sure she understood to increase labetalol per Dr. Linda. She also understands not to resume hydralazine. [facility] 36on 06-07-2024 36 I'm Stephanie from Dr. Cisneros's office with Cardiology. Patient's daughter called and wanted to know if Dr. Linda had restarted patient's hydralazine- NOT hydroxyzine. I don't see in the note that it was restarted. Dr. Linda, or someone from his office- can you clarify this for me? Thanks so much. [facility] Follow-Upon 06-07-2024 Follow-Up [id number] Nadir Beth 1940 M Date Provider Department Center 06/07/2024 Salvador-RUTHIE LINDA [facility] Comprehensiv Family History Problem Relation Age of Onset Coronary artery disease Father Family Status - Relation Status Age at Father Level of Service:65848 UT OFFICE/OUTPATIENT ESTABLISHED MOD MDM 30 MIN () Reason for Visit and Comments: Follow-up [055115] [facility] Telephoneon 06-07-2024 Telephone [id number] Nadir Beth 1940 M Date Provider Department Center 06/07/2024 Francisco-IRIS GUADALUPE [facility] Comprehensiv Family History Problem Relation Age of Onset Coronary artery disease Father Family Status - Relation Status Age at Father [facility] Office Visiton 06-05-2024 Follow-up visit [id number] Steen 1940 M Date Provider Department Center 06/05/2024 Parris-CLARIBEL CISNEROS [facility] Family History Problem Relation Age of Onset Coronary artery disease Father Family Status - Relation Status Age at Father Level of Service:52863 UT OFFICE/OUTPATIENT ESTABLISHED MOD MDM 30 MIN [facility] 36on 05-17-2024 36 Faxed lab orders 05/17/24 [facility] 36on 05-15-2024 36 Patient states that he needs his blood work to go to [facility] before his appointment on 05/31/24. [facility] 36on 05-10-2024 36 LM on for patient or his to return my call. [facility] 05-08-2024 36 Patient's bucio lidia with concerns of elevated BP since hydralazine was stopped at last apt. She said sometimes it's very good - 110/60's and sometimes 152/70. He's scheduled to see you in a few weeks. Did you want to change anything? Please advise. Thanks. [facility] 36on 04-04-2024 36 Regarding blood work from 04/03/2024: MD Stephanie Kelley MA Stable renal function. Continue same treatment and follow-up as planned. Patient's made aware. [facility] MICRO OTHER TESTSOrdered By: Francisco Bolanos on 04-15-2023 Fecal WBC Lactoferrin Negative (04/15/23 7:00 AM) Normal Negative [facility] Sero CHEMISTRYOrdered By: SYSTEM SYSTEM on [...] 3.3 g/dL Critically low 3.4-5.0 Th e [facility] Comment on above: Performed By: #### M ERICK Faith PHOS #### [facility] [address] [place] [address] Dr. David Magana GLYCOHEMOGLOBIN A1Con 2022 ADA RECOMMENDATION SEE BELOW Normal [facility] Comment on above: Result Comment: ADA RECOMMENDED LIMIT 4.0 - 6.0 ADA THERAPEUTIC TARGET < 7.0 ACTION SUGGESTED > 7.0 Performed By: #### A 1C #### [facility] [address] [address] [address] David Magana Glucose [Mass/Vol] 108 mg/dL Normal [facility] Comment on above: Performed By: #### A 1C #### [facility] [address] [address] [address] David Magana HbA1c (Bld) [Mass fraction] 5.4 % Normal 4.5-6.2 [facility] Comment on above: Performed By: #### A 1C #### [facility] [address] [place] [address] Dr. David Magana PHOSPHORUSon 03-24-2023 Phosphate [Mass/Vol] 3.6 mg/dL Normal 2.6-4.7 [facility] Comment on above: Performed By: #### M G, BMP, PHOS #### [facility] [address] [address] [address] David Magana PROF CHEM 8 (BAS METB)on Anion gap [Moles/Vol] 11.6 mmol/L Normal [facility] Comment on above: Performed By: #### M G, BMP, PHOS #### [facility] [address] [address] [address] David Magana Calcium [Mass/Vol] 8.9 mg/dL Normal 8.5-10.1 [facility] Comment on above: Performed By: #### M G, BMP, PHOS #### [facility] [address] [address] [address] David Magana Chloride [Moles/Vol] 107 mmol/L Normal 98-107 [facility] Comment on above: Performed By: #### M G, BMP, PHOS #### [facility] [address] [address] [address] David Magana CO2 [Moles/Vol] 30.8 mmol/L Normal 21.0-32.0 [facility] Comment on above: Performed By: #### M ERICK Faith, PHOS #### [facility] [address] [address] [address] David Magana Creatinine [Mass/Vol] 1.67 mg/dL Critically high 0.70-1.30 [facility] Comment on above: Performed By: #### ERICK Jacques, PHOS #### [facility] [address] [place] [address] Dr. David Magana EGFR-AF SENEGALESE 48 mL/min/1.73m2 Critically low >=60 [facility] Comment on above: Performed By: #### M ERICK Faith, PHOS #### [facility] [address] [place] [address] Dr. David Magana EGFR-NON AF SENEGALESE 39 mL/min/1.73m2 Critically low >=60 [facility] Comment on above: Performed By: #### ERICK Jacques, PHOS #### [facility] [address] [address] [address] David Magana Glucose [Mass/Vol] 128 mg/dL Critically high 74-106 [facility] Comment on above: Performed By: #### ERICK Jacques, PHOS #### [facility] [address] [place] [address] Dr. David Magana Potassium [Moles/Vol] 4.4 mmol/L Normal 3.5-5.1 [facility] Comment on above: Performed By: #### ERICK Jacques, PHOS #### [facility] [address] [address] [address] Davdi Magana Sodium [Moles/Vol] 145 mmol/L Normal 136-145 [facility] Comment on above: Performed By: #### M ERICK Faith, PHOS #### [facility] [address] [address] [address] David Magana Urea nitrogen [Mass/Vol] 25.0 mg/dL Critically high 7.0-18.0 [facility] Comment on above: Performed By: #### M ERICK Faith, PHOS #### [facility] [address] [place] [address] Dr. David Magana Urea nitrogen/Creatinine [Mass ratio] 15.0 mg/mg Normal [facility] Comment on above: Performed By: #### ERICK Jacques, PHOS #### [facility] [address] [place] [address] Dr. David Magana VITAMIN D 25 OHon 03-24-2023 VIT D 25-OH 11.6 ng/mL Normal [facility] Comment on above: Performed By: #### C BC #### [facility] [address] [place] [address] Dr. David Magana VIT D RANGES SEE BELOW Normal [facility] Comment on above: Result Comment: <20 ng/mL Vit D deficient 20 - <30 ng/mL Vit D insufficient 30 - 100 ng/mL Vit D sufficient >100 ng/mL Potential Toxicity Performed By: #### C BC #### [facility] [address] [place] [address] Dr. David Magana CBC AUTO DIFFon 02-27-2023 BASO # 0.0 103/ul Normal 0.0-0.1 [facility] Comment on above: Performed By: #### ERICK Jacques, PHOS #### [facility] [address] [place] [address] Dr. David Magana Basophils/100 WBC (Bld) 0.5 % Normal 0.2-2.0 [facility] Comment on above: Performed By: #### ERICK Jacques, PHOS #### [facility] [address] [place] [address] Dr. David Magana EO # 0.7 103/ul Normal 0.0-0.7 [facility] Comment on above: Performed By: #### ERICK Jacques, PHOS #### [facility] [address] [place] [address] Dr. David Magana Eosinophils/100 WBC (Bld) 9.3 % Critically high 0.9-7.0 [facility] Comment on above: Performed By: #### M G, BMP, PHOS #### [facility] [address] [place] [address] Dr. David Magana Erythrocyte distribution width (RBC) [Ratio] 14.6 % Normal 11.0-15.0 [facility] Comment on above: Performed By: #### M Marcell BMP, PHOS #### [facility] [address] [place] [address] Dr. David Magana Hematocrit (Bld) [Volume fraction] 41.5 % Critically low 42.0-54.0 [facility] Comment on above: Performed By: #### M Marcell, BMP, PHOS #### [facility] [address] [place] [address] Dr. David Magana Hemoglobin (Bld) [Mass/Vol] 13.9 g/dL Critically low 14.0-18.0 [facility] Comment on above: Performed By: #### ERICK Jacques, PHOS #### [facility] [address] [place] [address] Dr. David Magana IG # 0.02 10e3/ul Normal 0.00-0.03 [facility] Comment on above: Performed By: #### ERICK Jacques, PHOS #### [facility] [address] [place] [address] Dr. David Magana IG % 0.3 % Normal 0.0-0.5 [facility] Comment on above: Performed By: #### M ERICK Faith, PHOS #### [facility] [address] [place] [address] Dr. David Magana LYMPH # 1.0 103/ul Critically low 1.2-3.8 [facility] Comment on above: Performed By: #### M ERICK Faith, PHOS #### [facility] [address] [place] [address] Dr. David Magana Lymphocytes/100 WBC (Bld) 13.0 % Critically low 20.5-60.0 [facility] Comment on above: Performed By: #### M Marcell BMP, PHOS #### [facility] [address] [place] [address] Dr. David Magana MANUAL DIFF REQ NO Normal [facility] Comment on above: Performed By: #### M ERICK Faith, PHOS #### [facility] [address] [place] [address] Dr. David Magana MCH (RBC) [Entitic mass] 33.5 pg Normal 25.9-34.0 [facility] Comment on above: Performed By: #### ERICK Jacques, PHOS #### [facility] [address] [place] [address] Dr. David Magana MCHC (RBC) [Mass/Vol] 33.5 g/dL Normal 29.9-35.2 [facility] Comment on above: Performed By: #### ERICK Jacques, PHOS #### [facility] [address] [place] [address] Dr. David Magana MCV (RBC) [Entitic vol] 100.0 fL Critically high 80.0-94.0 [facility] Comment on above: Performed By: #### ERICK Jacques, PHOS #### [facility] [address] [place] [address] Dr. David Magana MONO # 0.8 103/ul Normal 0.3-0.8 [facility] Comment on above: Performed By: #### ERICK Jacques, PHOS #### [facility] [address] [place] [address] Dr. David Magana Monocytes/100 WBC (Bld) 10.1 % Normal 1.7-12.0 [facility] Comment on above: Performed By: #### ERICK Jacques, PHOS #### [facility] [address] [place] [address] Dr. David Magana NEUT # 5.0 103/ul Normal 1.4-6.5 [facility] Comment on above: Performed By: #### ERICK Jacques, PHOS #### [facility] [address] [place] [address] Dr. David Magana Neutrophils/100 WBC (Bld) 66.8 % Normal 43.0-75.0 [facility] Comment on above: Performed By: #### M Marcell, BMP, PHOS #### [facility] [address] [address] [address] David Magana Platelet mean volume (Bld) [Entitic vol] 11.2 fL Normal 9.5-13.5 [facility] Comment on above: Performed By: #### M Marcell, BMP, PHOS #### [facility] [address] [address] [address] David Magana PLT 187 103/ul Normal 150-450 [facility] Comment on above: Performed By: #### M Marcell, BMP, PHOS #### [facility] [address] [address] [address] David Magana RBC 4.15 106/ul Critically low 4.70-6.10 [facility] Comment on above: Performed By: #### M ERICK Faith, PHOS #### [facility] [address] [place] [address] Dr. David Magana WBC 7.5 103/ul Normal 4.0-11.0 [facility] Comment on above: Performed By: #### M ERICK Faith, PHOS #### [facility] [address] [address] [address] David Magana PROF 14(COMP METB)on 023 Albumin [Mass/Vol] 3.5 g/dL Normal 3.4-5.0 [facility] Comment on above: Performed By: #### A 1C #### [facility] [address] [place] [address] Dr. David Magana Albumin/Globulin [Mass ratio] 1.1 {ratio} Normal [facility] Comment on above: Performed By: #### A 1C #### [facility] [address] [place] [address] Dr. David Magana ALP [Catalytic activity/Vol] 76 U/L Normal 46-116 [facility] Comment on above: Performed By: #### A 1C #### [facility] [address] [place] [address] Dr. David Magana ALT [Catalytic activity/Vol] 23 U/L Normal 16-63 [facility] Comment on above: Performed By: #### A 1C #### [facility] [address] [address] [address] David Magana Anion gap [Moles/Vol] 13.1 mmol/L Normal Th e [facility] Comment on above: Performed By: #### A 1C #### [facility] [address] [address] [address] David Magana AST [Catalytic activity/Vol] 17 U/L Normal 15-37 [facility] Comment on above: Performed By: #### A 1C #### [facility] [address] [address] [address] David Magana Bilirubin [Mass/Vol] 0.7 mg/dL Normal 0.2-1.0 [facility] Comment on above: Performed By: #### A 1C #### [facility] [address] [address] [address] David Magana Calcium [Mass/Vol] 9.0 mg/dL Normal 8.5-10.1 [facility] Comment on above: Performed By: #### A 1C #### [facility] [address] [address] [address] David Magana Chloride [Moles/Vol] 105 mmol/L Normal 98-107 [facility] Comment on above: Performed By: #### A 1C #### [facility] [address] [address] [address] David Magana CO2 [Moles/Vol] 29.0 mmol/L Normal 21.0-32.0 [facility] Comment on above: Performed By: #### A 1C #### [facility] [address] [address] [address] David Magana Creatinine [Mass/Vol] 1.77 mg/dL Critically high 0.70-1.30 [facility] Comment on above: Performed By: #### A 1C #### [facility] [address] [address] [address] David Magana EGFR-AF SENEGALESE 45 mL/min/1.73m2 Critically low >=60 [facility] Comment on above: Performed By: #### A 1C #### [facility] [address] [address] [address] David Magana EGFR-NON AF SENEGALESE 37 mL/min/1.73m2 Critically low >=60 [facility] Comment on above: Performed By: #### A 1C #### [facility] [address] [address] [address] David Magana Globulin (S) [Mass/Vol] 3.3 g/dL Normal [facility] Comment on above: Performed By: #### A 1C #### [facility] [address] [address] [address] David Magana Glucose [Mass/Vol] 135 mg/dL Critically high 74-106 [facility] Comment on above: Performed By: #### A 1C #### [facility] [address] [address] [address] David Magana Potassium [Moles/Vol] 4.1 mmol/L Normal 3.5-5.1 [facility] Comment on above: Performed By: #### A 1C #### [facility] [address] [address] [address] David Magana Protein [Mass/Vol] 6.8 g/dL Normal 6.4-8.2 [facility] Comment on above: Performed By: #### A 1C #### [facility] [address] [address] [address] David Magana Sodium [Moles/Vol] 143 mmol/L Normal 136-145 [facility] Comment on above: Performed By: #### A 1C #### [facility] [address] [address] [address] David Magana Urea nitrogen [Mass/Vol] 31.0 mg/dL Critically high 7.0-18.0 [facility] Comment on above: Performed By: #### A 1C #### [facility] [address] [address] [address] David Magana Urea nitrogen/Creatinine [Mass ratio] 17.5 mg/mg Normal [facility] Comment on above: Performed By: #### A 1C #### [facility] [address] [place] [address] Dr. David Magana PROTIMEon 02-27-2023 INR Coag (PPP) [Relative time] 0.99 {INR} Normal [facility] Comment on above: Performed By: #### A 1C #### [facility] [address] [place] [address] Dr. David Magana INR GUIDELINES SEE BELOW Normal [facility] Comment on above: Result Comment: IDANIA RED INR: 2.0 - 3.0 CONDITIONS NOT LISTED BELOW 2.5 - 3.5 FOR PROSTHETIC HEART VALVE REPLACEMENT 2.5 - 3.5 RECURRENT THROMBOSIS Performed By: #### A 1C #### [facility] [address] [place] [address] Dr. David Magana PT Coag (PPP) [Time] 10.5 s Normal 9.0-11.6 [facility] Comment on above: Performed By: #### A 1C #### [facility] [address] [place] [address] Dr. David Magana PTTon 02-27-2023 aPTT Coag (Bld) [Time] 33.0 s Normal 22.3-36.2 [facility] Comment on above: Performed By: #### P OCGLUC #### [facility] [address] [place] [address] Dr. David Magana ALBUMINon 12-28-2022 Albumin [Mass/Vol] 3.6 g/dL Normal 3.4-5.0 [facility] Comment on above: Performed By: #### C BC #### [facility] [address] [place] [address] Dr. David Magana GLYCOHEMOGLOBIN A1Con 2022 ADA RECOMMENDATION SEE BELOW Normal [facility] Comment on above: Result Comment: ADA RECOMMENDED LIMIT 4.0 - 6.0 ADA THERAPEUTIC TARGET < 7.0 ACTION SUGGESTED > 7.0 Performed By: #### P OCGLUC #### [facility] [address] [place] [address] Dr. David Magana Glucose [Mass/Vol] 140 mg/dL Normal [facility] Comment on above: Performed By: #### P OCGLUC #### [facility] [address] [address] [address] David Magana HbA1c (Bld) [Mass fraction] 6.5 % Critically high 4.5-6.2 [facility] Comment on above: Performed By: #### P OCGLUC #### [facility] [address] [place] [address] Dr. David Magana MAGNESIUMon 12-28-2022 Magnesium [Mass/Vol] 2.3 mg/dL Normal 1.8-2.4 [facility] Comment on above: Performed By: #### P OCGLUC #### [facility] [address] [address] [address] David Magana PROF CHEM 8 (BAS METB)on Anion gap [Moles/Vol] 13.2 mmol/L Normal [facility] Comment on above: Performed By: #### P OCGLUC #### [facility] [address] [place] [address] Dr. David Magana Calcium [Mass/Vol] 9.0 mg/dL Normal 8.5-10.1 [facility] Comment on above: Performed By: #### P OCGLUC #### [facility] [address] [place] [address] Dr. David Magana Chloride [Moles/Vol] 105 mmol/L Normal 98-107 [facility] Comment on above: Performed By: #### P OCGLUC #### [facility] [address] [address] [address] David Magana CO2 [Moles/Vol] 28.9 mmol/L Normal 21.0-32.0 [facility] Comment on above: Performed By: #### P OCGLUC #### [facility] [address] [place] [address] Dr. David Magana Creatinine [Mass/Vol] 1.66 mg/dL Critically high 0.70-1.30 [facility] Comment on above: Performed By: #### P OCGLUC #### [facility] [address] [place] [address] Dr. David Magana EGFR-AF SENEGALESE 48 mL/min/1.73m2 Critically low >=60 [facility] Comment on above: Performed By: #### P OCGLUC #### [facility] [address] [address] [address] David Magana EGFR-NON AF SENEGALESE 40 mL/min/1.73m2 Critically low >=60 [facility] Comment on above: Performed By: #### P OCGLUC #### [facility] [address] [address] [address] David Magana Glucose [Mass/Vol] 123 mg/dL Critically high 74-106 [facility] Comment on above: Performed By: #### P OCGLUC #### [facility] [address] [address] [address] David Magana Potassium [Moles/Vol] 4.1 mmol/L Normal 3.5-5.1 [facility] Comment on above: Performed By: #### P OCGLUC #### [facility] [address] [address] [address] David Magana Sodium [Moles/Vol] 143 mmol/L Normal 136-145 [facility] Comment on above: Performed By: #### P OCGLUC #### [facility] [address] [address] [address] David Magana Urea nitrogen [Mass/Vol] 29.0 mg/dL Critically high 7.0-18.0 [facility] Comment on above: Performed By: #### P OCGLUC #### [facility] [address] [address] [address] David Magana Urea nitrogen/Creatinine [Mass ratio] 17.5 mg/mg Normal [facility] Comment on above: Performed By: #### P OCGLUC #### [facility] [address] [address] [address] David Magana URINE T PROTEIN CREAT RATIOo n 12-28-2022 UR TOTAL PROTEIN <6.0 Normal <=12.0 [facility] Comment on above: Performed By: #### M G, BMP, PHOS #### [facility] [address] [place] [address] Dr. David Magana URINE CREAT 41.21 mg/dL Normal 20.00-300.00 [facility] Comment on above: Performed By: #### ERICK Jacques, PHOS #### [facility] [address] [place] [address] Dr. David Magana ALBUMINon 11-16-2022 Albumin [Mass/Vol] 3.3 g/dL Critically low 3.4-5.0 [facility] Comment on above: Performed By: #### C BC #### [facility] [address] [place] [address] Dr. David Magana CREATININE URINEon URINE CREAT 19.69 mg/dL Critically low 20.00-300.00 [facility] Comment on above: Performed By: #### ERICK Jacques, PHOS #### [facility] [address] [place] [address] Dr. David Magana HEMOGLOBINon 11-16-2022 Hemoglobin (Bld) [Mass/Vol] 14.9 g/dL Normal 14.0-18.0 [facility] Comment on above: Performed By: #### ERICK Jacques, PHOS #### [facility] [address] [place] [address] Dr. David Magana MAGNESIUMon 11-16-2022 Magnesium [Mass/Vol] 2.2 mg/dL Normal 1.8-2.4 [facility] Comment on above: Performed By: #### C BC #### [facility] [address] [place] [address] Dr. David Magana PHOSPHORUSon 11-16-2022 Phosphate [Mass/Vol] 3.9 mg/dL Normal 2.6-4.7 [facility] Comment on above: Performed By: #### C BC #### [facility] [address] [place] [address] Dr. David Magana PROF CHEM 8 (BAS METB)on Anion gap [Moles/Vol] 11.9 mmol/L Normal [facility] Comment on above: Performed By: #### C BC #### [facility] [address] [address] [address] David Magana Calcium [Mass/Vol] 8.8 mg/dL Normal 8.5-10.1 [facility] Comment on above: Performed By: #### C BC #### [facility] [address] [address] [address] David Magana Chloride [Moles/Vol] 104 mmol/L Normal 98-107 [facility] Comment on above: Performed By: #### C BC #### [facility] [address] [address] [address] David Magana CO2 [Moles/Vol] 27.4 mmol/L Normal 21.0-32.0 [facility] Comment on above: Performed By: #### C BC #### [facility] [address] [address] [address] David Magana Creatinine [Mass/Vol] 1.68 mg/dL Critically high 0.70-1.30 [facility] Comment on above: Performed By: #### C BC #### [facility] [address] [address] [address] David Magana EGFR-AF SENEGALESE 48 mL/min/1.73m2 Critically low >=60 [facility] Comment on above: Performed By: #### C BC #### [facility] [address] [address] [address] David Magana EGFR-NON AF SENEGALESE 39 mL/min/1.73m2 Critically low >=60 [facility] Comment on above: Performed By: #### C BC #### [facility] [address] [address] [address] David Magana Glucose [Mass/Vol] 212 mg/dL Critically high 74-106 [facility] Comment on above: Performed By: #### C BC #### [facility] [address] [address] [address] David Magana Potassium [Moles/Vol] 4.3 mmol/L Normal 3.5-5.1 [facility] Comment on above: Performed By: #### C BC #### [facility] [address] [address] [address] David Magana Sodium [Moles/Vol] 139 mmol/L Normal 136-145 [facility] Comment on above: Performed By: #### C BC #### [facility] [address] [address] [address] David Magana Urea nitrogen [Mass/Vol] 25.0 mg/dL Critically high 7.0-18.0 [facility] Comment on above: Performed By: #### C BC #### [facility] [address] [address] [address] David Magana Urea nitrogen/Creatinine [Mass ratio] 14.9 mg/mg Normal [facility] Comment on above: Performed By: #### C BC #### [facility] [address] [address] [address] David Magana PROTEIN RAND URINEon 023 UR PROT <5.0 Normal <=11.9 [facility] Comment on above: Performed By: #### M ERICK Faith, PHOS #### [facility] [address] [address] [address] David Magana US KARI DOP LEG BILon 022 US KARI DOP LEG PARIS EXAMINATION: US KARI DOP LEG PARIS HISTORY: Edema ; bilateral [...] CLOVER PEREZ Date: 2022-11-02 16:21 Normal [facility] BNPon 07-22-2022 Natriuretic peptide B (Bld) [Mass/Vol] 2143.0 pg/mL Critically high <=1,800.0 [facility] Comment on above: Performed By: #### M ERICK Faith, PHOS #### [facility] [address] [address] [address] David Magana CBC AUTO DIFFon 07-22-2022 BASO # 0.0 103/ul Normal 0.0-0.1 [facility] Comment on above: Performed By: #### A 1C #### [facility] [address] [place] [address] Dr. David Magana Basophils/100 WBC (Bld) 0.3 % Normal 0.2-2.0 [facility] Comment on above: Performed By: #### A 1C #### [facility] [address] [place] [address] Dr. David Magana EO # 0.3 103/ul Normal 0.0-0.7 [facility] Comment on above: Performed By: #### A 1C #### [facility] [address] [place] [address] Dr. David Magana Eosinophils/100 WBC (Bld) 2.4 % Normal 0.9-7.0 [facility] Comment on above: Performed By: #### A 1C #### [facility] [address] [place] [address] Dr. David Magana Erythrocyte distribution width (RBC) [Ratio] 13.4 % Normal 11.0-15.0 [facility] Comment on above: Performed By: #### A 1C #### [facility] [address] [place] [address] Dr. David Magana Hematocrit (Bld) [Volume fraction] 42.7 % Normal 42.0-54.0 [facility] Comment on above: Performed By: #### A 1C #### [facility] [address] [place] [address] Dr. David Magana Hemoglobin (Bld) [Mass/Vol] 14.2 g/dL Normal 14.0-18.0 [facility] Comment on above: Performed By: #### A 1C #### [facility] [address] [place] [address] Dr. David Magana IG # 0.18 10e3/ul Critically high 0.00-0.03 [facility] Comment on above: Performed By: #### A 1C #### [facility] [address] [place] [address] Dr. David Magana IG % 1.6 % Critically high 0.0-0.5 [facility] Comment on above: Performed By: #### A 1C #### [facility] [address] [place] [address] Dr. David Magana LYMPH # 0.9 103/ul Critically low 1.2-3.8 [facility] Comment on above: Performed By: #### A 1C #### [facility] [address] [place] [address] Dr. David Magana Lymphocytes/100 WBC (Bld) 8.1 % Critically low 20.5-60.0 [facility] Comment on above: Performed By: #### A 1C #### [facility] [address] [place] [address] Dr. David Magana MANUAL DIFF REQ NO Normal [facility] Comment on above: Performed By: #### A 1C #### [facility] [address] [place] [address] Dr. David Magana MCH (RBC) [Entitic mass] 33.3 pg Normal 25.9-34.0 [facility] Comment on above: Performed By: #### A 1C #### [facility] [address] [place] [address] Dr. David Magana MCHC (RBC) [Mass/Vol] 33.3 g/dL Normal 29.9-35.2 [facility] Comment on above: Performed By: #### A 1C #### [facility] [address] [place] [address] Dr. David Magana MCV (RBC) [Entitic vol] 100.2 fL Critically high 80.0-94.0 [facility] Comment on above: Performed By: #### A 1C #### [facility] [address] [place] [address] Dr. David Magana MONO # 1.2 103/ul Critically high 0.3-0.8 [facility] Comment on above: Performed By: #### A 1C #### [facility] [address] [place] [address] Dr. David Magana Monocytes/100 WBC (Bld) 10.5 % Normal 1.7-12.0 [facility] Comment on above: Performed By: #### A 1C #### [facility] [address] [address] [address] David Magana NEUT # 8.9 103/ul Critically high 1.4-6.5 [facility] Comment on above: Performed By: #### A 1C #### [facility] [address] [address] [address] David Magana Neutrophils/100 WBC (Bld) 77.1 % Critically high 43.0-75.0 [facility] Comment on above: Performed By: #### A 1C #### [facility] [address] [place] [address] Dr. David Magana Platelet mean volume (Bld) [Entitic vol] 11.3 fL Normal 9.5-13.5 [facility] Comment on above: Performed By: #### A 1C #### [facility] [address] [address] [address] David Magana PLT 175 103/ul Normal 150-450 [facility] Comment on above: Performed By: #### A 1C #### [facility] [address] [place] [address] Dr. David Magana RBC 4.26 106/ul Critically low 4.70-6.10 [facility] Comment on above: Performed By: #### A 1C #### [facility] [address] [place] [address] Dr. David Magana WBC 11.5 103/ul Critically high 4.0-11.0 [facility] Comment on above: Performed By: #### A 1C #### [facility] [address] [place] [address] Dr. David Magana PROF 14(COMP METB)on 022 Albumin [Mass/Vol] 2.6 g/dL Critically low 3.4-5.0 [facility] Comment on above: Performed By: #### M G, BMP, PHOS #### [facility] [address] [place] [address] Dr. David Magana Albumin/Globulin [Mass ratio] 0.9 {ratio} Normal [facility] Comment on above: Performed By: #### M ERICK Faith, PHOS #### [facility] [address] [place] [address] Dr. David Magana ALP [Catalytic activity/Vol] 49 U/L Normal 46-116 [facility] Comment on above: Performed By: #### M ERICK Faith, PHOS #### [facility] [address] [place] [address] Dr. David Magana ALT [Catalytic activity/Vol] 25 U/L Normal 16-63 [facility] Comment on above: Performed By: #### M ERICK Faith, PHOS #### [facility] [address] [place] [address] Dr. David Magana Anion gap [Moles/Vol] 12.8 mmol/L Normal [facility] Comment on above: Performed By: #### ERICK Jacques, PHOS #### [facility] [address] [place] [address] Dr. David Magana AST [Catalytic activity/Vol] 9 U/L Critically low 15-37 [facility] Comment on above: Performed By: #### ERICK Jacques, PHOS #### [facility] [address] [place] [address] Dr. David Magana Bilirubin [Mass/Vol] 0.5 mg/dL Normal 0.2-1.0 [facility] Comment on above: Performed By: #### ERICK Jacques, PHOS #### [facility] [address] [place] [address] Dr. David Magana Calcium [Mass/Vol] 8.3 mg/dL Critically low 8.5-10.1 [facility] Comment on above: Performed By: #### ERICK Jacques, PHOS #### [facility] [address] [place] [address] Dr. David Magana Chloride [Moles/Vol] 105 mmol/L Normal 98-107 [facility] Comment on above: Performed By: #### ERICK Jacques, PHOS #### [facility] [address] [address] [address] David Magana CO2 [Moles/Vol] 24.2 mmol/L Normal 21.0-32.0 [facility] Comment on above: Performed By: #### M G, BMP, PHOS #### [facility] [address] [address] [address] David Magana Creatinine [Mass/Vol] 1.28 mg/dL Normal 0.70-1.30 [facility] Comment on above: Performed By: #### M G, BMP, PHOS #### [facility] [address] [address] [address] David Magana EGFR-AF SENEGALESE >60 Normal >=60 [facility] Comment on above: Performed By: #### M G, BMP, PHOS #### [facility] [address] [place] [address] Dr. David Magana EGFR-NON AF SENEGALESE 54 mL/min/1.73m2 Critically low >=60 [facility] Comment on above: Performed By: #### M G, BMP, PHOS #### [facility] [address] [address] [address] David Magana Globulin (S) [Mass/Vol] 2.9 g/dL Normal [facility] Comment on above: Performed By: #### M G, BMP, PHOS #### [facility] [address] [address] [address] David Magana Glucose [Mass/Vol] 205 mg/dL Critically high 74-106 [facility] Comment on above: Performed By: #### M G, BMP, PHOS #### [facility] [address] [address] [address] David Magana Potassium [Moles/Vol] 4.0 mmol/L Normal 3.5-5.1 [facility] Comment on above: Performed By: #### M G, BMP, PHOS #### [facility] [address] [address] [address] David Magana Protein [Mass/Vol] 5.5 g/dL Critically low 6.4-8.2 Th e [facility] Comment on above: Performed By: #### M ERICK Faith, PHOS #### [facility] [address] [place] [address] Dr. David Magana Sodium [Moles/Vol] 138 mmol/L Normal 136-145 [facility] Comment on above: Performed By: #### M Marcell BMP, PHOS #### [facility] [address] [place] [address] Dr. David Magana Urea nitrogen [Mass/Vol] 36.0 mg/dL Critically high 7.0-18.0 [facility] Comment on above: Performed By: #### M ERICK Faith, PHOS #### [facility] [address] [place] [address] Dr. David Magana Urea nitrogen/Creatinine [Mass ratio] 28.1 mg/mg Normal [facility] Comment on above: Performed By: #### ERICK Jacques, PHOS #### [facility] [address] [place] [address] Dr. David Magana BNPon 07-21-2022 Natriuretic peptide B (Bld) [Mass/Vol] 3485.0 pg/mL Critically high <=1,800.0 [facility] Comment on above: Result Comment: repe ated Performed By: #### A 1C #### [facility] [address] [place] [address] Dr. David Magana CBC AUTO DIFFon 07-21-2022 BASO # 0.0 103/ul Normal 0.0-0.1 [facility] Comment on above: Performed By: #### C BC #### [facility] [address] [place] [address] Dr. David Magana Basophils/100 WBC (Bld) 0.3 % Normal 0.2-2.0 [facility] Comment on above: Performed By: #### C BC #### [facility] [address] [place] [address] Dr. David Magana EO # 0.2 103/ul Normal 0.0-0.7 [facility] Comment on above: Performed By: #### C BC #### [facility] [address] [address] [address] David Magana Eosinophils/100 WBC (Bld) 1.9 % Normal 0.9-7.0 [facility] Comment on above: Performed By: #### C BC #### [facility] [address] [place] [address] Dr. David Magana Erythrocyte distribution width (RBC) [Ratio] 13.4 % Normal 11.0-15.0 [facility] Comment on above: Performed By: #### C BC #### [facility] [address] [place] [address] Dr. David Magana Hematocrit (Bld) [Volume fraction] 42.5 % Normal 42.0-54.0 [facility] Comment on above: Performed By: #### C BC #### [facility] [address] [place] [address] Dr. David Magana Hemoglobin (Bld) [Mass/Vol] 14.2 g/dL Normal 14.0-18.0 [facility] Comment on above: Performed By: #### C BC #### [facility] [address] [place] [address] Dr. David Magana IG # 0.22 10e3/ul Critically high 0.00-0.03 [facility] Comment on above: Performed By: #### C BC #### [facility] [address] [place] [address] Dr. David Magana IG % 2.1 % Critically high 0.0-0.5 [facility] Comment on above: Performed By: #### C BC #### [facility] [address] [place] [address] Dr. David Magana LYMPH # 0.8 103/ul Critically low 1.2-3.8 [facility] Comment on above: Performed By: #### C BC #### [facility] [address] [place] [address] Dr. David Magana Lymphocytes/100 WBC (Bld) 7.7 % Critically low 20.5-60.0 [facility] Comment on above: Performed By: #### C BC #### [facility] [address] [place] [address] Dr. David Magana MANUAL DIFF REQ NO Normal [facility] Comment on above: Performed By: #### C BC #### [facility] [address] [place] [address] Dr. David Magana MCH (RBC) [Entitic mass] 33.0 pg Normal 25.9-34.0 [facility] Comment on above: Performed By: #### C BC #### [facility] [address] [place] [address] Dr. David Magana MCHC (RBC) [Mass/Vol] 33.4 g/dL Normal 29.9-35.2 [facility] Comment on above: Performed By: #### C BC #### [facility] [address] [place] [address] Dr. David Magana MCV (RBC) [Entitic vol] 98.8 fL Critically high 80.0-94.0 [facility] Comment on above: Performed By: #### C BC #### [facility] [address] [place] [address] Dr. David Magana MONO # 1.0 103/ul Critically high 0.3-0.8 [facility] Comment on above: Performed By: #### C BC #### [facility] [address] [place] [address] Dr. David Magana Monocytes/100 WBC (Bld) 9.7 % Normal 1.7-12.0 [facility] Comment on above: Performed By: #### C BC #### [facility] [address] [place] [address] Dr. David Magana NEUT # 8.1 103/ul Critically high 1.4-6.5 [facility] Comment on above: Performed By: #### C BC #### [facility] [address] [place] [address] Dr. David Magana Neutrophils/100 WBC (Bld) 78.3 % Critically high 43.0-75.0 [facility] Comment on above: Performed By: #### C BC #### [facility] [address] [place] [address] Dr. David Magana Platelet mean volume (Bld) [Entitic vol] 10.7 fL Normal 9.5-13.5 [facility] Comment on above: Performed By: #### C BC #### [facility] [address] [address] [address] David Magana PLT 177 103/ul Normal 150-450 [facility] Comment on above: Performed By: #### C BC #### [facility] [address] [place] [address] Dr. David Magana RBC 4.30 106/ul Critically low 4.70-6.10 [facility] Comment on above: Performed By: #### C BC #### [facility] [address] [place] [address] Dr. David Magana WBC 10.4 103/ul Normal 4.0-11.0 [facility] Comment on above: Performed By: #### C BC #### [facility] [address] [place] [address] Dr. David Magana PROF 14(COMP METB)on 022 Albumin [Mass/Vol] 2.6 g/dL Critically low 3.4-5.0 [facility] Comment on above: Performed By: #### A 1C #### [facility] [address] [place] [address] Dr. David Magana Albumin/Globulin [Mass ratio] 1.0 {ratio} Normal [facility] Comment on above: Performed By: #### A 1C #### [facility] [address] [place] [address] Dr. David Magana ALP [Catalytic activity/Vol] 50 U/L Normal 46-116 [facility] Comment on above: Performed By: #### A 1C #### [facility] [address] [place] [address] Dr. David Magana ALT [Catalytic activity/Vol] 28 U/L Normal 16-63 [facility] Comment on above: Performed By: #### A 1C #### [facility] [address] [address] [address] David Magana Anion gap [Moles/Vol] 11.4 mmol/L Normal [facility] Comment on above: Performed By: #### A 1C #### [facility] [address] [address] [address] David Magana AST [Catalytic activity/Vol] 13 U/L Critically low 15-37 [facility] Comment on above: Performed By: #### A 1C #### [facility] [address] [address] [address] David Magana Bilirubin [Mass/Vol] 0.4 mg/dL Normal 0.2-1.0 [facility] Comment on above: Performed By: #### A 1C #### [facility] [address] [place] [address] Dr. David Magana Calcium [Mass/Vol] 8.4 mg/dL Critically low 8.5-10.1 [facility] Comment on above: Performed By: #### A 1C #### [facility] [address] [place] [address] Dr. David Magana Chloride [Moles/Vol] 107 mmol/L Normal 98-107 [facility] Comment on above: Performed By: #### A 1C #### [facility] [address] [place] [address] Dr. David Magana CO2 [Moles/Vol] 24.6 mmol/L Normal 21.0-32.0 [facility] Comment on above: Performed By: #### A 1C #### [facility] [address] [address] [address] David Magana Creatinine [Mass/Vol] 1.26 mg/dL Normal 0.70-1.30 [facility] Comment on above: Performed By: #### A 1C #### [facility] [address] [place] [address] Dr. David Magana EGFR-AF SENEGALESE >60 Normal >=60 [facility] Comment on above: Performed By: #### A 1C #### [facility] [address] [address] [address] David Magana EGFR-NON AF SENEGALESE 55 mL/min/1.73m2 Critically low >=60 [facility] Comment on above: Performed By: #### A 1C #### [facility] [address] [place] [address] Dr. David Magana Globulin (S) [Mass/Vol] 2.7 g/dL Normal [facility] Comment on above: Performed By: #### A 1C #### [facility] [address] [place] [address] Dr. David Magana Glucose [Mass/Vol] 203 mg/dL Critically high 74-106 [facility] Comment on above: Performed By: #### A 1C #### [facility] [address] [place] [address] Dr. David Magana Potassium [Moles/Vol] 4.0 mmol/L Normal 3.5-5.1 [facility] Comment on above: Performed By: #### A 1C #### [facility] [address] [place] [address] Dr. David Magana Protein [Mass/Vol] 5.3 g/dL Critically low 6.4-8.2 [facility] Comment on above: Performed By: #### A 1C #### [facility] [address] [place] [address] Dr. David Magana Sodium [Moles/Vol] 139 mmol/L Normal 136-145 [facility] Comment on above: Performed By: #### A 1C #### [facility] [address] [place] [address] Dr. David Magana Urea nitrogen [Mass/Vol] 33.0 mg/dL Critically high 7.0-18.0 [facility] Comment on above: Performed By: #### A 1C #### [facility] [address] [place] [address] Dr. David Magana Urea nitrogen/Creatinine [Mass ratio] 26.2 mg/mg Normal [facility] Comment on above: Performed By: #### A 1C #### [facility] [address] [place] [address] Dr. David Magana BNPon 07-20-2022 Natriuretic peptide B (Bld) [Mass/Vol] 7478.0 pg/mL Critically high <=1,800.0 [facility] Comment on above: Performed By: #### A 1C #### [facility] [address] [place] [address] Dr. David Magana CBC AUTO DIFFon 07-20-2022 BASO # 0.1 103/ul Normal 0.0-0.1 [facility] Comment on above: Performed By: #### M ERICK Faith, PHOS #### [facility] [address] [place] [address] Dr. David Magana Basophils/100 WBC (Bld) 0.8 % Normal 0.2-2.0 [facility] Comment on above: Performed By: #### M ERICK Faith, PHOS #### [facility] [address] [place] [address] Dr. David Magana EO # 0.1 103/ul Normal 0.0-0.7 [facility] Comment on above: Performed By: #### M Marcell BMP, PHOS #### [facility] [address] [place] [address] Dr. David Magana Eosinophils/100 WBC (Bld) 0.6 % Critically low 0.9-7.0 [facility] Comment on above: Performed By: #### M ERICK Faith, PHOS #### [facility] [address] [place] [address] Dr. David Magana Erythrocyte distribution width (RBC) [Ratio] 13.4 % Normal 11.0-15.0 [facility] Comment on above: Performed By: #### M ERICK Faith, PHOS #### [facility] [address] [place] [address] Dr. David Magana Hematocrit (Bld) [Volume fraction] 43.2 % Normal 42.0-54.0 [facility] Comment on above: Performed By: #### M Marcell BMP, PHOS #### [facility] [address] [place] [address] Dr. David Magana Hemoglobin (Bld) [Mass/Vol] 14.2 g/dL Normal 14.0-18.0 [facility] Comment on above: Performed By: #### M G, BMP, PHOS #### [facility] [address] [place] [address] Dr. David Magana IG # 0.21 10e3/ul Critically high 0.00-0.03 [facility] Comment on above: Performed By: #### M G, BMP, PHOS #### [facility] [address] [place] [address] Dr. David Magana IG % 2.0 % Critically high 0.0-0.5 [facility] Comment on above: Performed By: #### M G BMP, PHOS #### [facility] [address] [place] [address] Dr. David Magana LYMPH # 0.8 103/ul Critically low 1.2-3.8 [facility] Comment on above: Performed By: #### ERICK Jacques, PHOS #### [facility] [address] [place] [address] Dr. David Magana Lymphocytes/100 WBC (Bld) 7.7 % Critically low 20.5-60.0 [facility] Comment on above: Performed By: #### ERICK Jacques, PHOS #### [facility] [address] [place] [address] Dr. David Magana MANUAL DIFF REQ NO Normal [facility] Comment on above: Performed By: #### M ERICK Faith, PHOS #### [facility] [address] [place] [address] Dr. David Magana MCH (RBC) [Entitic mass] 33.2 pg Normal 25.9-34.0 [facility] Comment on above: Performed By: #### M Marcell BMP, PHOS #### [facility] [address] [place] [address] Dr. David Magana MCHC (RBC) [Mass/Vol] 32.9 g/dL Normal 29.9-35.2 [facility] Comment on above: Performed By: #### M ERICK Faith, PHOS #### [facility] [address] [address] [address] David Magana MCV (RBC) [Entitic vol] 100.9 fL Critically high 80.0-94.0 [facility] Comment on above: Performed By: #### M ERICK Faith, PHOS #### [facility] [address] [place] [address] Dr. David Magana MONO # 1.0 103/ul Critically high 0.3-0.8 [facility] Comment on above: Performed By: #### M G, BMP, PHOS #### [facility] [address] [place] [address] Dr. David Magana Monocytes/100 WBC (Bld) 10.0 % Normal 1.7-12.0 [facility] Comment on above: Performed By: #### M Marcell, BMP, PHOS #### [facility] [address] [place] [address] Dr. Dvaid Magana NEUT # 8.1 103/ul Critically high 1.4-6.5 [facility] Comment on above: Performed By: #### M Marcell BMP, PHOS #### [facility] [address] [place] [address] Dr. David Magana Neutrophils/100 WBC (Bld) 78.9 % Critically high 43.0-75.0 [facility] Comment on above: Performed By: #### M Marcell BMP, PHOS #### [facility] [address] [place] [address] Dr. David Magana Platelet mean volume (Bld) [Entitic vol] 10.8 fL Normal 9.5-13.5 [facility] Comment on above: Performed By: #### M G, BMP, PHOS #### [facility] [address] [place] [address] Dr. David Magana PLT 172 103/ul Normal 150-450 [facility] Comment on above: Performed By: #### M G, BMP, PHOS #### [facility] [address] [place] [address] Dr. David Magana RBC 4.28 106/ul Critically low 4.70-6.10 [facility] Comment on above: Performed By: #### M ERICK Faith PHOS #### [facility] [address] [address] [address] David Magana WBC 10.3 103/ul Normal 4.0-11.0 [facility] Comment on above: Performed By: #### M ERICK Faith, PHOS #### [facility] [address] [address] [address] David Magana CULTURE URINEon 07-20-2022 CULTURE [...] Trimethoprim/Sulfameth oxazole >=320 R F Normal [facility] Comment on above: Performed By: #### M ERICK Faith PHOS #### [facility] [address] [place] [address] Dr. David Magana PROF 14(COMP METB)on 022 Albumin [Mass/Vol] 2.6 g/dL Critically low 3.4-5.0 [facility] Comment on above: Performed By: #### A 1C #### [facility] [address] [place] [address] Dr. David Magana Albumin/Globulin [Mass ratio] 0.9 {ratio} Normal [facility] Comment on above: Performed By: #### A 1C #### [facility] [address] [place] [address] Dr. David Magana ALP [Catalytic activity/Vol] 48 U/L Normal 46-116 [facility] Comment on above: Performed By: #### A 1C #### [facility] [address] [address] [address] David Magana ALT [Catalytic activity/Vol] 27 U/L Normal 16-63 [facility] Comment on above: Performed By: #### A 1C #### [facility] [address] [place] [address] Dr. David Magana Anion gap [Moles/Vol] 13.4 mmol/L Normal [facility] Comment on above: Performed By: #### A 1C #### [facility] [address] [place] [address] Dr. David Magana AST [Catalytic activity/Vol] 22 U/L Normal 15-37 [facility] Comment on above: Performed By: #### A 1C #### [facility] [address] [place] [address] Dr. David Magana Bilirubin [Mass/Vol] 0.5 mg/dL Normal 0.2-1.0 [facility] Comment on above: Performed By: #### A 1C #### [facility] [address] [place] [address] Dr. David Magana Calcium [Mass/Vol] 8.3 mg/dL Critically low 8.5-10.1 [facility] Comment on above: Performed By: #### A 1C #### [facility] [address] [place] [address] Dr. David Magana Chloride [Moles/Vol] 105 mmol/L Normal 98-107 [facility] Comment on above: Performed By: #### A 1C #### [facility] [address] [place] [address] Dr. David Magana CO2 [Moles/Vol] 21.0 mmol/L Normal 21.0-32.0 [facility] Comment on above: Performed By: #### A 1C #### [facility] [address] [place] [address] Dr. David Magana Creatinine [Mass/Vol] 1.38 mg/dL Critically high 0.70-1.30 [facility] Comment on above: Performed By: #### A 1C #### [facility] [address] [place] [address] Dr. David Magana EGFR-AF SENEGALESE 60 mL/min/1.73m2 Normal >=60 [facility] Comment on above: Performed By: #### A 1C #### [facility] [address] [address] [address] David Magana EGFR-NON AF SENEGALESE 49 mL/min/1.73m2 Critically low >=60 [facility] Comment on above: Performed By: #### A 1C #### [facility] [address] [address] [address] David Magana Globulin (S) [Mass/Vol] 2.8 g/dL Normal [facility] Comment on above: Performed By: #### A 1C #### [facility] [address] [address] [address] David Magana Glucose [Mass/Vol] 156 mg/dL Critically high 74-106 [facility] Comment on above: Performed By: #### A 1C #### [facility] [address] [address] [address] David Magana Potassium [Moles/Vol] 4.4 mmol/L Normal 3.5-5.1 [facility] Comment on above: Performed By: #### A 1C #### [facility] [address] [place] [address] Dr. David Magana Protein [Mass/Vol] 5.4 g/dL Critically low 6.4-8.2 [facility] Comment on above: Performed By: #### A 1C #### [facility] [address] [address] [address] David Magana Sodium [Moles/Vol] 135 mmol/L Critically low 136-145 [facility] Comment on above: Performed By: #### A 1C #### [facility] [address] [address] [address] David Magana Urea nitrogen [Mass/Vol] 40.0 mg/dL Critically high 7.0-18.0 [facility] Comment on above: Performed By: #### A 1C #### [facility] [address] [address] [address] David Magana Urea nitrogen/Creatinine [Mass ratio] 29.0 mg/mg Normal [facility] Comment on above: Performed By: #### A 1C #### [facility] [address] [place] [address] Dr. David aMgana BNPon 07-19-2022 Natriuretic peptide B (Bld) [Mass/Vol] 26573.0 pg/mL Critically high <=1,800.0 [facility] Comment on above: Performed By: #### C VDTB #### [facility] [address] [place] [address] Dr. David Magana CBC AUTO DIFFon 07-19-2022 BASO # 0.0 103/ul Normal 0.0-0.1 [facility] Comment on above: Performed By: #### C BC #### [facility] [address] [place] [address] Dr. David Magana Basophils/100 WBC (Bld) 0.3 % Normal 0.2-2.0 [facility] Comment on above: Performed By: #### C BC #### [facility] [address] [place] [address] Dr. David Magana EO # 0.0 103/ul Normal 0.0-0.7 [facility] Comment on above: Performed By: #### C BC #### [facility] [address] [place] [address] Dr. David Magana Eosinophils/100 WBC (Bld) 0.2 % Critically low 0.9-7.0 [facility] Comment on above: Performed By: #### C BC #### [facility] [address] [place] [address] Dr. David Magana Erythrocyte distribution width (RBC) [Ratio] 13.4 % Normal 11.0-15.0 [facility] Comment on above: Performed By: #### C BC #### [facility] [address] [place] [address] Dr. David Magana Hematocrit (Bld) [Volume fraction] 43.4 % Normal 42.0-54.0 [facility] Comment on above: Performed By: #### C BC #### [facility] [address] [address] [address] David Magana Hemoglobin (Bld) [Mass/Vol] 14.6 g/dL Normal 14.0-18.0 [facility] Comment on above: Performed By: #### C BC #### [facility] [address] [address] [address] David Magana IG # 0.18 10e3/ul Critically high 0.00-0.03 [facility] Comment on above: Performed By: #### C BC #### [facility] [address] [address] [address] David Magana IG % 1.5 % Critically high 0.0-0.5 [facility] Comment on above: Performed By: #### C BC #### [facility] [address] [address] [address] David Magana LYMPH # 0.8 103/ul Critically low 1.2-3.8 [facility] Comment on above: Performed By: #### C BC #### [facility] [address] [place] [address] Dr. David Magana Lymphocytes/100 WBC (Bld) 6.6 % Critically low 20.5-60.0 [facility] Comment on above: Performed By: #### C BC #### [facility] [address] [place] [address] Dr. David Magana MANUAL DIFF REQ NO Normal [facility] Comment on above: Performed By: #### C BC #### [facility] [address] [address] [address] David Magana MCH (RBC) [Entitic mass] 33.7 pg Normal 25.9-34.0 [facility] Comment on above: Performed By: #### C BC #### [facility] [address] [address] [address] David Magana MCHC (RBC) [Mass/Vol] 33.6 g/dL Normal 29.9-35.2 [facility] Comment on above: Performed By: #### C BC #### [facility] [address] [address] [address] David Magana MCV (RBC) [Entitic vol] 100.2 fL Critically high 80.0-94.0 [facility] Comment on above: Performed By: #### C BC #### [facility] [address] [place] [address] Dr. David Magana MONO # 1.1 103/ul Critically high 0.3-0.8 [facility] Comment on above: Performed By: #### C BC #### [facility] [address] [place] [address] Dr. David Magana Monocytes/100 WBC (Bld) 9.3 % Normal 1.7-12.0 [facility] Comment on above: Performed By: #### C BC #### [facility] [address] [place] [address] Dr. David Magana NEUT # 9.6 103/ul Critically high 1.4-6.5 [facility] Comment on above: Performed By: #### C BC #### [facility] [address] [place] [address] Dr. David Magana Neutrophils/100 WBC (Bld) 82.1 % Critically high 43.0-75.0 [facility] Comment on above: Performed By: #### C BC #### [facility] [address] [place] [address] Dr. Dvaid Magana Platelet mean volume (Bld) [Entitic vol] 10.8 fL Normal 9.5-13.5 [facility] Comment on above: Performed By: #### C BC #### [facility] [address] [place] [address] Dr. David Magana PLT 202 103/ul Normal 150-450 [facility] Comment on above: Performed By: #### C BC #### [facility] [address] [place] [address] Dr. David Magana RBC 4.33 106/ul Critically low 4.70-6.10 [facility] Comment on above: Performed By: #### C BC #### [facility] [address] [place] [address] Dr. David Magana WBC 11.7 103/ul Critically high 4.0-11.0 [facility] Comment on above: Performed By: #### C BC #### [facility] [address] [place] [address] Dr. David Magana PROF 14(COMP METB)on 022 Albumin [Mass/Vol] 3.4 g/dL Normal 3.4-5.0 [facility] Comment on above: Performed By: #### A 1C #### [facility] [address] [place] [address] Dr. David Magana Albumin/Globulin [Mass ratio] 1.1 {ratio} Normal [facility] Comment on above: Performed By: #### A 1C #### [facility] [address] [place] [address] Dr. David Magana ALP [Catalytic activity/Vol] 63 U/L Normal 46-116 [facility] Comment on above: Performed By: #### A 1C #### [facility] [address] [place] [address] Dr. David Magana ALT [Catalytic activity/Vol] 34 U/L Normal 16-63 [facility] Comment on above: Performed By: #### A 1C #### [facility] [address] [place] [address] Dr. David Magana Anion gap [Moles/Vol] 20.9 mmol/L Normal [facility] Comment on above: Performed By: #### A 1C #### [facility] [address] [place] [address] Dr. David Magana AST [Catalytic activity/Vol] 18 U/L Normal 15-37 [facility] Comment on above: Performed By: #### A 1C #### [facility] [address] [place] [address] Dr. David Magana Bilirubin [Mass/Vol] 0.5 mg/dL Normal 0.2-1.0 [facility] Comment on above: Performed By: #### A 1C #### [facility] [address] [place] [address] Dr. David Magana Calcium [Mass/Vol] 8.5 mg/dL Normal 8.5-10.1 [facility] Comment on above: Performed By: #### A 1C #### [facility] [address] [place] [address] Dr. David Magana Chloride [Moles/Vol] 99 mmol/L Normal 98-107 [facility] Comment on above: Performed By: #### A 1C #### [facility] [address] [place] [address] Dr. David Magana CO2 [Moles/Vol] 19.1 mmol/L Critically low 21.0-32.0 [facility] Comment on above: Performed By: #### A 1C #### [facility] [address] [place] [address] Dr. David Magana Creatinine [Mass/Vol] 1.80 mg/dL Critically high 0.70-1.30 [facility] Comment on above: Performed By: #### A 1C #### [facility] [address] [place] [address] Dr. David Magana EGFR-AF SENEGALESE 44 mL/min/1.73m2 Critically low >=60 [facility] Comment on above: Performed By: #### A 1C #### [facility] [address] [place] [address] Dr. David Magana EGFR-NON AF SENEGALESE 36 mL/min/1.73m2 Critically low >=60 [facility] Comment on above: Performed By: #### A 1C #### [facility] [address] [place] [address] Dr. David Magana Globulin (S) [Mass/Vol] 3.2 g/dL Normal [facility] Comment on above: Performed By: #### A 1C #### [facility] [address] [place] [address] Dr. David Magana Glucose [Mass/Vol] 287 mg/dL Critically high 74-106 [facility] Comment on above: Performed By: #### A 1C #### [facility] [address] [place] [address] Dr. David Magana Potassium [Moles/Vol] 5.0 mmol/L Normal 3.5-5.1 [facility] Comment on above: Performed By: #### A 1C #### [facility] [address] [place] [address] Dr. David Magana Protein [Mass/Vol] 6.6 g/dL Normal 6.4-8.2 [facility] Comment on above: Performed By: #### A 1C #### [facility] [address] [place] [address] Dr. David Magana Sodium [Moles/Vol] 134 mmol/L Critically low 136-145 [facility] Comment on above: Performed By: #### A 1C #### [facility] [address] [place] [address] Dr. David Magana Urea nitrogen [Mass/Vol] 51.0 mg/dL Critically high 7.0-18.0 [facility] Comment on above: Performed By: #### A 1C #### [facility] [address] [place] [address] Dr. David Magana Urea nitrogen/Creatinine [Mass ratio] 28.3 mg/mg [facility] Comment on above: Performed By: #### A 1C #### [facility] [address] [place] [address] Dr. David Magana BLOOD GASES [facility] 07-18-2022 02 MODE NASAL CANNULA Normal [facility] Comment on above: Performed By: #### A 1C #### [facility] [address] [place] [address] Dr. David Magana ALLENS TEST Positive [facility] Comment on above: Performed By: #### A 1C #### [facility] [address] [place] [address] Dr. David Magana Base excess Calc (Bld) [Moles/Vol] -9.0000 mmol/L Critically low -2.0-2.0 [facility] Comment on above: Performed By: #### A 1C #### [facility] [address] [place] [address] Dr. David Magana BIPAP PRESSURE Normal [facility] Comment on above: Performed By: #### A 1C #### [facility] [address] [address] [address] David Magana CPAP [facility] Comment on above: Performed By: #### A 1C #### [facility] [address] [address] [address] David Magana FIO2 Normal [facility] Comment on above: Performed By: #### A 1C #### [facility] [address] [address] [address] David Magana HCO3 (Bld) [Moles/Vol] 18.4 mmol/L Critically low 22.0-26.0 [facility] Comment on above: Performed By: #### A 1C #### [facility] [address] [place] [address] Dr. David Magana LPM 1.5 Normal [facility] Comment on above: Performed By: #### A 1C #### [facility] [address] [place] [address] Dr. David Magana MINUTE VOLUME Normal [facility] Comment on above: Performed By: #### A 1C #### [facility] [address] [place] [address] Dr. David Magana Oxygen (Bld) [Partial pressure] 69.5 mm[Hg] Critically low 80.0-100.0 [facility] Comment on above: Performed By: #### A 1C #### [facility] [address] [place] [address] Dr. David Magana Oxygen saturation in Blood 94.2 % Critically low 95.0-100.0 [facility] Comment on above: Performed By: #### A 1C #### [facility] [address] [place] [address] Dr. David Magana PCO2 29.6 mmHg Critically low 35.0-45.0 [facility] Comment on above: Performed By: #### A 1C #### [facility] [address] [place] [address] Dr. David Magana PEEP [facility] Comment on above: Performed By: #### A 1C #### [facility] [address] [place] [address] Dr. David Magana pH (Bld) 7.355 [pH] Normal 7.350-7.450 [facility] Comment on above: Performed By: #### A 1C #### [facility] [address] [place] [address] Dr. David Magana [facility] Comment on above: Performed By: #### A 1C #### [facility] [address] [place] [address] Dr. David Magana [facility] Comment on above: Performed By: #### A 1C #### [facility] [address] [place] [address] Dr. David Magana PUNCTURE SITE LR [facility] Comment on above: Performed By: #### A 1C #### [facility] [address] [place] [address] Dr. David Magana [facility] Comment on above: Performed By: #### A 1C #### [facility] [address] [place] [address] Dr. David Magana VENT MODE [facility] Comment on above: Performed By: #### A 1C #### [facility] [address] [place] [address] Dr. David Magana [facility] Comment on above: Performed By: #### A 1C #### [facility] [address] [place] [address] Dr. David Magana BNPon 07-18-2022 Natriuretic peptide B (Bld) [Mass/Vol] 7047.0 pg/mL Critically high <=1,800.0 [facility] Comment on above: Performed By: #### C VDTBH #### [facility] [address] [place] [address] Dr. David Magana CARDIAC BARRIE 3-6on 2 CK [Catalytic activity/Vol] 396 U/L Critically high 39-308 [facility] Comment on above: Performed By: #### M G, BMP, PHOS #### [facility] [address] [place] [address] Dr. David Magana CK.MB [Mass/Vol] 2.94 ng/mL Normal <=3.60 [facility] Comment on above: Performed By: #### ERICK Jacques, PHOS #### [facility] [address] [place] [address] Dr. David Magana HSTROP 11.1 pg/mL Normal 4.0-76.1 [facility] Comment on above: Result Comment: CUT- OFF POINTS HAVE BEEN ESTABLISHED BASED ON THE FOURTH UNIVERSAL DEFINITIONS OF MYOCARDIAL INFARCTION. THE UPPER REFERENCE LIMIT (URL) OF TROPONIN, DEFINED THE 99TH PERCENTILE OF cTnI DISTRIBUTION IN A REFERENCE POPULATION, HAS BEEN CONFIRMED THE DECISION THRESHOLD FOR [place] DIAGNOSIS. Performed By: #### ERICK Jacques, PHOS #### [facility] [address] [place] [address] Dr. David Magana CK [Catalytic activity/Vol] 58 U/L Normal 39-308 [facility] Comment on above: Performed By: #### ERICK Jacques, PHOS #### [facility] [address] [place] [address] Dr. David Magana CK.MB [Mass/Vol] 1.71 ng/mL Normal <=3.60 [facility] Comment on above: Performed By: #### ERICK Jacques, PHOS #### [facility] [address] [place] [address] Dr. David Magana HSTROP 10.6 pg/mL Normal 4.0-76.1 [facility] Comment on above: Result Comment: CUT- OFF POINTS HAVE BEEN ESTABLISHED BASED ON THE FOURTH UNIVERSAL DEFINITIONS OF MYOCARDIAL INFARCTION. THE UPPER REFERENCE LIMIT (URL) OF TROPONIN, DEFINED THE 99TH PERCENTILE OF cTnI DISTRIBUTION IN A REFERENCE POPULATION, HAS BEEN CONFIRMED THE DECISION THRESHOLD FOR [place] DIAGNOSIS. Performed By: #### ERICK Jacques, PHOS #### [facility] [address] [place] [address] Dr. David Magana CBC AUTO DIFFon 07-18-2022 BASO # 0.0 103/ul Normal 0.0-0.1 [facility] Comment on above: Performed By: #### ERICK Jacques, PHOS #### [facility] [address] [place] [address] Dr. David Magana Basophils/100 WBC (Bld) 0.2 % Normal 0.2-2.0 [facility] Comment on above: Performed By: #### M G, BMP, PHOS #### [facility] [address] [place] [address] Dr. David Magana EO # 0.0 103/ul Normal 0.0-0.7 [facility] Comment on above: Performed By: #### M G, BMP, PHOS #### [facility] [address] [place] [address] Dr. David Magana Eosinophils/100 WBC (Bld) 0.2 % Critically low 0.9-7.0 [facility] Comment on above: Performed By: #### M G, BMP, PHOS #### [facility] [address] [place] [address] Dr. David Magana Erythrocyte distribution width (RBC) [Ratio] 13.2 % Normal 11.0-15.0 [facility] Comment on above: Performed By: #### M G, BMP, PHOS #### [facility] [address] [place] [address] Dr. David Magana Hematocrit (Bld) [Volume fraction] 43.8 % Normal 42.0-54.0 [facility] Comment on above: Performed By: #### M G, BMP, PHOS #### [facility] [address] [place] [address] Dr. David Magana Hemoglobin (Bld) [Mass/Vol] 14.5 g/dL Normal 14.0-18.0 [facility] Comment on above: Performed By: #### M G, BMP, PHOS #### [facility] [address] [place] [address] Dr. David Magana IG # 0.15 10e3/ul Critically high 0.00-0.03 [facility] Comment on above: Performed By: #### M G, BMP, PHOS #### [facility] [address] [place] [address] Dr. David Magana IG % 1.3 % Critically high 0.0-0.5 [facility] Comment on above: Performed By: #### M ERICK Faith, PHOS #### [facility] [address] [place] [address] Dr. David Magana LYMPH # 0.5 103/ul Critically low 1.2-3.8 [facility] Comment on above: Performed By: #### M ERICK Faith, PHOS #### [facility] [address] [place] [address] Dr. David Magana Lymphocytes/100 WBC (Bld) 3.8 % Critically low 20.5-60.0 [facility] Comment on above: Performed By: #### ERICK Jacques, PHOS #### [facility] [address] [place] [address] Dr. David Magana MANUAL DIFF REQ NO Normal [facility] Comment on above: Performed By: #### ERICK Jacques, PHOS #### [facility] [address] [place] [address] Dr. David Magana MCH (RBC) [Entitic mass] 32.7 pg Normal 25.9-34.0 [facility] Comment on above: Performed By: #### ERICK Jacques, PHOS #### [facility] [address] [place] [address] Dr. David Magana MCHC (RBC) [Mass/Vol] 33.1 g/dL Normal 29.9-35.2 [facility] Comment on above: Performed By: #### ERICK Jacques, PHOS #### [facility] [address] [place] [address] Dr. David Magana MCV (RBC) [Entitic vol] 98.9 fL Critically high 80.0-94.0 [facility] Comment on above: Performed By: #### ERICK Jacques, PHOS #### [facility] [address] [place] [address] Dr. David Magana MONO # 0.7 103/ul Normal 0.3-0.8 [facility] Comment on above: Performed By: #### M G, BMP, PHOS #### [facility] [address] [address] [address] David Magana Monocytes/100 WBC (Bld) 5.7 % Normal 1.7-12.0 [facility] Comment on above: Performed By: #### M G, BMP, PHOS #### [facility] [address] [address] [address] David Magana NEUT # 10.4 103/ul Critically high 1.4-6.5 [facility] Comment on above: Performed By: #### M G, BMP, PHOS #### [facility] [address] [address] [address] David Magana Neutrophils/100 WBC (Bld) 88.8 % Critically high 43.0-75.0 [facility] Comment on above: Performed By: #### M G, BMP, PHOS #### [facility] [address] [address] [address] David Magana Platelet mean volume (Bld) [Entitic vol] 11.0 fL Normal 9.5-13.5 [facility] Comment on above: Performed By: #### M G, BMP, PHOS #### [facility] [address] [place] [address] Dr. David Magana PLT 198 103/ul Normal 150-450 [facility] Comment on above: Performed By: #### M G, BMP, PHOS #### [facility] [address] [address] [address] David Magana RBC 4.43 106/ul Critically low 4.70-6.10 [facility] Comment on above: Performed By: #### M G, BMP, PHOS #### [facility] [address] [address] [address] David Magana WBC 11.8 103/ul Critically high 4.0-11.0 [facility] Comment on above: Performed By: #### M G, BMP, PHOS #### [facility] [address] [address] [address] HEAD WO CONon [...] ZELAYA Date: 2022-07-18 05:12 Normal [facility] Covid-19 PCR (CVDTBH)on SARS-CoV-2 (COVID-19) RNA SULTANA+probe Ql (Unsp spec) Detected Critically abnormal NOT DETECTED [facility] Comment on above: Result Comment: This test is not yet approved or cleared by the [place] FDA. When there are no FDA-approved or cleared tests available, and other criteria are met, FDA can make tests available under an emergency access mechanism called an Emergency Use Authorization (EUA). The EUA for this test is supported by the [place] of Health and Human Service's declaration that [...] used). Performed By: #### C VDTBH #### [facility] [address] [place] [address] Dr. David Magana D-DIMERon 07-18-2022 D-DIMER 1.69 mg/L FEU Critically high <=0.59 [facility] Comment on above: Performed By: #### C BC #### [facility] [address] [place] [address] Dr. David Magana D-DIMER COMMENTS SEE BELOW Normal [facility] Comment on above: Result Comment: [...] Performed By: #### C BC #### [facility] [address] [place] [address] Dr. David Magana POINT OF CARE GLUCOSEon Glucose [Mass/Vol] 329 mg/dL Critically high [facility] Comment on above: Performed By: #### P OCGLUC #### [facility] [address] [place] [address] Dr. David Magana Glucose [Mass/Vol] 354 mg/dL Critically high [facility] Comment on above: Performed By: #### P OCGLUC #### [facility] [address] [place] [address] Dr. David Magana PROF 14(COMP METB)on 022 Albumin [Mass/Vol] 3.6 g/dL Normal 3.4-5.0 [facility] Comment on above: Performed By: #### C VDTBH #### [facility] [address] [place] [address] Dr. David Magana Albumin/Globulin [Mass ratio] 1.1 {ratio} Normal [facility] Comment on above: Performed By: #### C VDTBH #### [facility] [address] [place] [address] Dr. David Magana ALP [Catalytic activity/Vol] 67 U/L Normal 46-116 [facility] Comment on above: Performed By: #### C VDTBH #### [facility] [address] [place] [address] Dr. David Magana ALT [Catalytic activity/Vol] 33 U/L Normal 16-63 [facility] Comment on above: Performed By: #### C VDTBH #### [facility] [address] [place] [address] Dr. David Magana Anion gap [Moles/Vol] 23.5 mmol/L Normal [facility] Comment on above: Performed By: #### C VDTBH #### [facility] [address] [place] [address] Dr. David Magana AST [Catalytic activity/Vol] 13 U/L Critically low 15-37 [facility] Comment on above: Performed By: #### C VDTBH #### [facility] [address] [place] [address] Dr. David Magana Bilirubin [Mass/Vol] 0.6 mg/dL Normal 0.2-1.0 [facility] Comment on above: Performed By: #### C VDTBH #### [facility] [address] [place] [address] Dr. David Magana Calcium [Mass/Vol] 8.4 mg/dL Critically low 8.5-10.1 [facility] Comment on above: Performed By: #### C VDTBH #### [facility] [address] [place] [address] Dr. David Magana Chloride [Moles/Vol] 93 mmol/L Critically low 98-107 [facility] Comment on above: Performed By: #### C VDTBH #### [facility] [address] [place] [address] Dr. David Magana CO2 [Moles/Vol] 17.9 mmol/L Critically low 21.0-32.0 [facility] Comment on above: Performed By: #### C VDTBH #### [facility] [address] [place] [address] Dr. David Magana Creatinine [Mass/Vol] 2.15 mg/dL Critically high 0.70-1.30 [facility] Comment on above: Performed By: #### C VDTBH #### [facility] [address] [place] [address] Dr. David Magana EGFR-AF SENEGALESE 36 mL/min/1.73m2 Critically low >=60 [facility] Comment on above: Performed By: #### C VDTBH #### [facility] [address] [address] [address] David Magana EGFR-NON AF [place]ESE 30 mL/min/1.73m2 Critically low >=60 [facility] Comment on above: Performed By: #### C VDTBH #### [facility] [address] [address] [address] David Magana Globulin (S) [Mass/Vol] 3.2 g/dL Normal [facility] Comment on above: Performed By: #### C VDTBH #### [facility] [address] [place] [address] Dr. David Magana Glucose [Mass/Vol] 345 mg/dL Critically high 74-106 [facility] Comment on above: Performed By: #### C VDTBH #### [facility] [address] [place] [address] Dr. David Magana Potassium [Moles/Vol] 5.4 mmol/L Critically high 3.5-5.1 [facility] Comment on above: Performed By: #### C VDTBH #### [facility] [address] [place] [address] Dr. David Magana Performed By: #### K #### [facility] [address] [place] [address] Dr. David Magana Protein [Mass/Vol] 6.8 g/dL Normal 6.4-8.2 [facility] Comment on above: Performed By: #### C VDTBH #### [facility] [address] [place] [address] Dr. David Magana Sodium [Moles/Vol] 129 mmol/L Critically low 136-145 [facility] Comment on above: Performed By: #### C VDTBH #### [facility] [address] [place] [address] Dr. David Magana Urea nitrogen [Mass/Vol] 65.0 mg/dL Critically high 7.0-18.0 [facility] Comment on above: Performed By: #### C VDTBH #### [facility] [address] [address] [address] David Magana Urea nitrogen/Creatinine [Mass ratio] 30.2 mg/mg Normal [facility] Comment on above: Performed By: #### C VDTBH #### [facility] [address] [address] [address] David Magnaa UA RANDOM W/MICROSCOPICon BACTERIA NONE SEEN Normal NONE SEEN [facility] Comment on above: Performed By: #### M Marcell, BMP, PHOS #### [facility] Laboratory [address] [place] [address] Dr. David Magana Bilirubin Ql (U) Negative Normal NEGATIVE [facility] Comment on above: Performed By: #### M Marcell, BMP, PHOS #### [facility] [address] [place] [address] Dr. David Magana CAST NONE SEEN Normal NONE SEEN [facility] Comment on above: Performed By: #### M Marcell, BMP, PHOS #### [facility] [address] [place] [address] Dr. David Magana Clarity (U) CLEAR Normal CLEAR [facility] Comment on above: Performed By: #### M Marcell BMP, PHOS #### [facility] [address] [place] [address] Dr. David Magana Color (U) LT. YELLOW Normal YELLOW [facility] Comment on above: Performed By: #### M Marcell, BMP, PHOS #### [facility] [address] [place] [address] Dr. David Magana Crystals LM Nom (Urine sed) NONE SEEN Normal NONE SEEN [facility] Comment on above: Performed By: #### M G, BMP, PHOS #### [facility] [address] [place] [address] Dr. David Magana Epithelial cells LM Ql (Urine sed) RARE Normal NONE SEEN /RARE [facility] Comment on above: Performed By: #### M Marcell, BMP, PHOS #### [facility] [address] [address] [address] David Magana Glucose Ql (U) 1000 mg/dl Abnormal NEGATIVE [facility] Comment on above: Performed By: #### M G, BMP, PHOS #### [facility] [address] [place] [address] Dr. David Magana Hemoglobin Ql (U) Negative Normal NEGATIVE [facility] Comment on above: Performed By: #### M G, BMP, PHOS #### [facility] [address] [address] [address] David Magana Ketones Ql (U) 15 mg/dl Abnormal NEGATIVE [facility] Comment on above: Performed By: #### M G, BMP, PHOS #### [facility] [address] [place] [address] Dr. David Magana LEUKOCYTES Negative Normal NEGATIVE [facility] Comment on above: Performed By: #### M G, BMP, PHOS #### [facility] [address] [place] [address] Dr. David Magana MUCOUS NONE SEEN Normal NONE SEEN [facility] Comment on above: Performed By: #### M G, BMP, PHOS #### [facility] [address] [place] [address] Dr. David Magana Nitrite Ql (U) Negative Normal NEGATIVE [facility] Comment on above: Performed By: #### M G, BMP, PHOS #### [facility] [address] [place] [address] Dr. David Magana pH (U) 5.5 [pH] Normal 5-9 [facility] Comment on above: Performed By: #### M G, BMP, PHOS #### [facility] [address] [place] [address] Dr. David Magana RBC NONE SEEN Abnormal 0-2 [facility] Comment on above: Performed By: #### M G, BMP, PHOS #### [facility] [address] [place] [address] Dr. David Magana SPEC GRAVITY <=1.005 Abnormal 1.005-<=1.[address] [place] [address] Comment on above: Performed By: #### M ERICK Faith, PHOS #### [facility] [address] [address] [address] David Magana UA PROTEIN Negative Normal NEGATIVE/ TRACE [facility] Comment on above: Performed By: #### M ERICK Faith, PHOS #### [facility] [address] [address] [address] David Magana Urobilinogen Qn (U) 0.2 {Dionna'U}/dL Normal 0.2 - 1. 0 [facility] Comment on above: Performed By: #### M Marcell, ERICK, PHOS #### [facility] [address] [address] [address] David Magana WBC NONE SEEN Normal NONE SEEN [facility] Comment on above: Performed By: #### M ERICK Faith, PHOS #### [facility] [address] [address] [address] David Magana XR CHEST 1 Von [...] Yefri MORATAYA Date: 2022-07-18 00:09 Normal [facility] CARDIAC BARRIE ADMITon 022 CK [Catalytic activity/Vol] 61 U/L Normal 39-308 [facility] Comment on above: Performed By: #### C BC #### [facility] [address] [address] [address] David Magana CK.MB [Mass/Vol] 1.84 ng/mL Normal <=3.60 [facility] Comment on above: Performed By: #### C BC #### [facility] [address] [address] [address] David Magana HSTROP 9.4 pg/mL Normal 4.0-76.1 [facility] Comment on above: Result Comment: CUT- OFF POINTS HAVE BEEN ESTABLISHED BASED ON THE FOURTH UNIVERSAL DEFINITIONS OF MYOCARDIAL INFARCTION. THE UPPER REFERENCE LIMIT (URL) OF TROPONIN, DEFINED THE 99TH PERCENTILE OF cTnI DISTRIBUTION IN A REFERENCE POPULATION, HAS BEEN CONFIRMED THE DECISION THRESHOLD FOR [place] DIAGNOSIS. Performed By: #### C BC #### [facility] [address] [place] [address] Dr. David Magana DUSTIN 533 ng/mL Critically high 16-96 [facility] Comment on above: Performed By: #### C BC #### [facility] [address] [address] [address] David Magana CBC AUTO DIFFon 07-17-2022 BASO # 0.0 103/ul Normal 0.0-0.1 [facility] Comment on above: Performed By: #### M G, BMP, PHOS #### [facility] [address] [place] [address] Dr. David Magana Basophils/100 WBC (Bld) 0.2 % Normal 0.2-2.0 [facility] Comment on above: Performed By: #### M G, BMP, PHOS #### [facility] [address] [place] [address] Dr. David Magana EO # 0.0 103/ul Normal 0.0-0.7 [facility] Comment on above: Performed By: #### M G, BMP, PHOS #### [facility] [address] [place] [address] Dr. David Magana Eosinophils/100 WBC (Bld) 0.1 % Critically low 0.9-7.0 [facility] Comment on above: Performed By: #### M G, BMP, PHOS #### [facility] [address] [place] [address] Dr. David Magana Erythrocyte distribution width (RBC) [Ratio] 13.2 % Normal 11.0-15.0 [facility] Comment on above: Performed By: #### M G, BMP, PHOS #### [facility] [address] [place] [address] Dr. David Magana Hematocrit (Bld) [Volume fraction] 43.1 % Normal 42.0-54.0 [facility] Comment on above: Performed By: #### M ERICK Faith, PHOS #### [facility] [address] [place] [address] Dr. David Magana Hemoglobin (Bld) [Mass/Vol] 14.5 g/dL Normal 14.0-18.0 [facility] Comment on above: Performed By: #### ERICK Jacques, PHOS #### [facility] [address] [place] [address] Dr. David Magana IG # 0.14 10e3/ul Critically high 0.00-0.03 [facility] Comment on above: Performed By: #### ERICK Jacques, PHOS #### [facility] [address] [place] [address] Dr. David Magana IG % 1.2 % Critically high 0.0-0.5 [facility] Comment on above: Performed By: #### ERICK Jacques, PHOS #### [facility] [address] [place] [address] Dr. David Magana LYMPH # 0.4 103/ul Critically low 1.2-3.8 [facility] Comment on above: Performed By: #### ERICK Jacques, PHOS #### [facility] [address] [place] [address] Dr. David Magana Lymphocytes/100 WBC (Bld) 3.4 % Critically low 20.5-60.0 [facility] Comment on above: Performed By: #### ERICK Jacques, PHOS #### [facility] [address] [place] [address] Dr. David Magana MANUAL DIFF REQ NO Normal [facility] Comment on above: Performed By: #### ERICK Jacques, PHOS #### [facility] [address] [place] [address] Dr. David Magana MCH (RBC) [Entitic mass] 33.3 pg Normal 25.9-34.0 [facility] Comment on above: Performed By: #### ERICK Jacques, PHOS #### [facility] [address] [place] [address] Dr. David Magana MCHC (RBC) [Mass/Vol] 33.6 g/dL Normal 29.9-35.2 [facility] Comment on above: Performed By: #### M G, BMP, PHOS #### [facility] [address] [place] [address] Dr. David Magana MCV (RBC) [Entitic vol] 98.9 fL Critically high 80.0-94.0 [facility] Comment on above: Performed By: #### M G, BMP, PHOS #### [facility] [address] [place] [address] Dr. David Magana MONO # 1.1 103/ul Critically high 0.3-0.8 [facility] Comment on above: Performed By: #### M G, BMP, PHOS #### [facility] [address] [place] [address] Dr. David Magana Monocytes/100 WBC (Bld) 8.9 % Normal 1.7-12.0 [facility] Comment on above: Performed By: #### M G, BMP, PHOS #### [facility] [address] [place] [address] Dr. David Magana NEUT # 10.3 103/ul Critically high 1.4-6.5 [facility] Comment on above: Performed By: #### M G, BMP, PHOS #### [facility] [address] [place] [address] Dr. David Magana Neutrophils/100 WBC (Bld) 86.2 % Critically high 43.0-75.0 [facility] Comment on above: Performed By: #### M G, BMP, PHOS #### [facility] [address] [place] [address] Dr. David Magana Platelet mean volume (Bld) [Entitic vol] 11.1 fL Normal 9.5-13.5 [facility] Comment on above: Performed By: #### M G, BMP, PHOS #### [facility] [address] [place] [address] Dr. David Magana PLT 229 103/ul Normal 150-450 [facility] Comment on above: Performed By: #### M ERICK Faith, PHOS #### [facility] [address] [address] [address] David Magana RBC 4.36 106/ul Critically low 4.70-6.10 [facility] Comment on above: Performed By: #### ERICK Jacques, PHOS #### [facility] [address] [address] [address] David Magana WBC 11.9 103/ul Critically high 4.0-11.0 [facility] Comment on above: Performed By: #### ERICK Jacques PHOS #### [facility] [address] [place] [address] Dr. David Magana PROF CHEM 8 (BAS METB)on Anion gap [Moles/Vol] 26.5 mmol/L Normal [facility] Comment on above: Performed By: #### C BC #### [facility] [address] [address] [address] David Magana Calcium [Mass/Vol] 8.2 mg/dL Critically low 8.5-10.1 [facility] Comment on above: Performed By: #### C BC #### [facility] [address] [place] [address] Dr. David Magana Chloride [Moles/Vol] 89 mmol/L Critically low 98-107 [facility] Comment on above: Performed By: #### C BC #### [facility] [address] [place] [address] Dr. David Magana CO2 [Moles/Vol] 14.5 mmol/L Critically low 21.0-32.0 [facility] Comment on above: Performed By: #### C BC #### [facility] [address] [place] [address] Dr. David Magana Creatinine [Mass/Vol] 2.78 mg/dL Critically high 0.70-1.30 [facility] Comment on above: Performed By: #### C BC #### [facility] [address] [address] [address] David Magana EGFR-AF SENEGALESE 27 mL/min/1.73m2 Critically low >=60 [facility] Comment on above: Performed By: #### C BC #### [facility] [address] [address] [address] David Magana EGFR-NON AF SENEGALESE 22 mL/min/1.73m2 Critically low >=60 [facility] Comment on above: Performed By: #### C BC #### [facility] [address] [address] [address] David Magana Glucose [Mass/Vol] 442 mg/dL Critically high 74-106 [facility] Comment on above: Performed By: #### C BC #### [facility] [address] [address] [address] David Magana Potassium [Moles/Vol] 6.0 mmol/L Critically high 3.5-5.1 [facility] Comment on above: Performed By: #### C BC #### [facility] [address] [address] [address] David Magana Sodium [Moles/Vol] 124 mmol/L Critically low 136-145 [facility] Comment on above: Performed By: #### C BC #### [facility] [address] [address] [address] David Magana Urea nitrogen [Mass/Vol] 73.0 mg/dL Critically high 7.0-18.0 [facility] Comment on above: Performed By: #### C BC #### [facility] [address] [address] [address] David Magana Urea nitrogen/Creatinine [Mass ratio] 26.3 mg/mg Normal [facility] Comment on above: Performed By: #### C BC #### [facility] [address] [place] [address] Dr. David Magana [facility]16 SARS-CoV-2 (COVID-19) RNA SULTANA+probe Ql (Unsp spec) Detected Critically abnormal NOT DETECTED [facility] Comment on above: Result Comment: This test is not yet approved or cleared by the [place] FDA. When there are no FDA-approved or cleared tests available, and other criteria are met, FDA can make tests available under an emergency access mechanism called an Emergency Use Authorization (EUA). The EUA for this test is supported by the [employer]ent [employer] of Health and Human Service's (HHS's) declaration [...] #### M ERICK Faith PHOS #### [facility] [address] [address] [address] David Magana ECHOCARDIO M/2D COMPLETEon 0 07-01-2022 ECHOCARDIO M/2D COMPLETE Patient: NADIR BETH Exam Date: 07/01/2022 : 1940 Gender:M Ordering : DR CLARIBEL CISNEROS M.D. Admission #: [id number] Family : DR VAN YOUSSEF . Order #: [id number] CLICK HERE TO VIEW EXAM ECHOCARDIOGRAM REPORT [...] on 07/01/2022 at 16:27 Normal [facility] Covid-19 PCR ([facility])on SARS-CoV-2 (COVID-19) RNA SULTANA+probe Ql (Unsp spec) Not detected Normal NOT DETECTED [facility] Comment on above: Result Comment: When [...] for this test is supported by the Talent Rep of Health and Human Service's declaration that [...] used). Performed By: #### C VDTBH #### [facility] [address] [address] [address] David Magana CREATININE URINEon 2 URINE CREAT 14.70 mg/dL Critically low 20.00-300.00 [facility] Comment on above: Performed By: #### M ERICK Faith, MARCELAS #### [facility] [address] [address] [address] David Magana GLYCOHEMOGLOBIN A1Con 2021 ADA RECOMMENDATION SEE BELOW Normal [facility] Comment on above: Result Comment: ADA RECOMMENDED LIMIT 4.0 - 6.0 ADA THERAPEUTIC TARGET < 7.0 ACTION SUGGESTED > 7.0 Performed By: #### A 1C #### [facility] [address] [place] [address] Dr. David Magana Glucose [Mass/Vol] 209 mg/dL Normal [facility] Comment on above: Performed By: #### A 1C #### [facility] [address] [place] [address] Dr. David Magana HbA1c (Bld) [Mass fraction] 8.9 % Critically high 4.5-6.2 [facility] Comment on above: Performed By: #### A 1C #### [facility] [address] [place] [address] Dr. David Magana MAGNESIUMon 06-08-2022 Magnesium [Mass/Vol] 2.3 mg/dL Normal 1.8-2.4 [facility] Comment on above: Performed By: #### M Marcell BMP, PHOS #### [facility] [address] [place] [address] Dr. David Magana PHOSPHORUSon 06-08-2022 Phosphate [Mass/Vol] 3.5 mg/dL Normal 2.6-4.7 [facility] Comment on above: Performed By: #### M Marcell BMP, PHOS #### [facility] [address] [place] [address] Dr. David Magana PROF CHEM 8 (BAS METB)on Anion gap [Moles/Vol] 10.6 mmol/L Normal [facility] Comment on above: Performed By: #### M G, BMP, PHOS #### [facility] [address] [place] [address] Dr. David Magana Calcium [Mass/Vol] 9.2 mg/dL Normal 8.5-10.1 [facility] Comment on above: Performed By: #### M G, BMP, PHOS #### [facility] [address] [place] [address] Dr. David Magana Chloride [Moles/Vol] 102 mmol/L Normal 98-107 [facility] Comment on above: Performed By: #### M G, BMP, PHOS #### [facility] [address] [address] [address] David Magana CO2 [Moles/Vol] 30.1 mmol/L Normal 21.0-32.0 [facility] Comment on above: Performed By: #### M G, BMP, PHOS #### [facility] [address] [address] [address] David Magana Creatinine [Mass/Vol] 1.70 mg/dL Critically high 0.70-1.30 [facility] Comment on above: Performed By: #### M G, BMP, PHOS #### [facility] [address] [address] [address] David Magana EGFR-AF SENEGALESE 47 mL/min/1.73m2 Critically low >=60 [facility] Comment on above: Performed By: #### M G, BMP, PHOS #### [facility] [address] [place] [address] Dr. David Magana EGFR-NON AF SENEGALESE 39 mL/min/1.73m2 Critically low >=60 [facility] Comment on above: Performed By: #### M Marcell, BMP, PHOS #### [facility] [address] [address] [address] David Magana Glucose [Mass/Vol] 197 mg/dL Critically high 74-106 [facility] Comment on above: Performed By: #### M Marcell, BMP, PHOS #### [facility] [address] [address] [address] David Magana Potassium [Moles/Vol] 4.7 mmol/L Normal 3.5-5.1 [facility] Comment on above: Performed By: #### M G, BMP, PHOS #### [facility] [address] [address] [address] David Magana Sodium [Moles/Vol] 138 mmol/L Normal 136-145 [facility] Comment on above: Performed By: #### M G, BMP, PHOS #### [facility] [address] [address] [address] David Magana Urea nitrogen [Mass/Vol] 25.0 mg/dL Critically high 7.0-18.0 [facility] Comment on above: Performed By: #### M G, BMP, PHOS #### [facility] [address] [place] [address] Dr. David Magana Urea nitrogen/Creatinine [Mass ratio] 14.7 mg/mg Normal [facility] Comment on above: Performed By: #### M G, BMP, PHOS #### [facility] [address] [place] [address] Dr. David Magana PROTEIN RAND URINEon 022 UR PROT <5.0 Normal <=11.9 [facility] Comment on above: Performed By: #### C REAU, PROTU #### [facility] [address] [place] [address] Dr. David Magana BILIRUBIN CONJUGATED (DIRECT )on 04-28-2022 BILI, CONJUGATED 0.1 mg/dL Normal 0.0-0.2 [facility] Comment on above: Performed By: #### P OCGLUC #### [facility] [address] [place] [address] Dr. David Magana CBC AUTO DIFFon 04-28-2022 BASO # 0.1 103/ul Normal 0.0-0.1 [facility] Comment on above: Performed By: #### C VDTBH #### [facility] [address] [place] [address] Dr. David Magana Basophils/100 WBC (Bld) 0.7 % Normal 0.2-2.0 [facility] Comment on above: Performed By: #### C VDTBH #### [facility] [address] [place] [address] Dr. David Magana EO # 0.5 103/ul Normal 0.0-0.7 [facility] Comment on above: Performed By: #### C VDTBH #### [facility] [address] [place] [address] Dr. David Magana Eosinophils/100 WBC (Bld) 6.7 % Normal 0.9-7.0 [facility] Comment on above: Performed By: #### C VDTBH #### [facility] [address] [place] [address] Dr. David Magana Erythrocyte distribution width (RBC) [Ratio] 13.6 % Normal 11.0-15.0 [facility] Comment on above: Performed By: #### C VDTBH #### [facility] [address] [place] [address] Dr. David Magana Hematocrit (Bld) [Volume fraction] 45.9 % Normal 42.0-54.0 [facility] Comment on above: Performed By: #### C VDTBH #### [facility] [address] [place] [address] Dr. David Magana Hemoglobin (Bld) [Mass/Vol] 14.9 g/dL Normal 14.0-18.0 [facility] Comment on above: Performed By: #### C VDTBH #### [facility] [address] [place] [address] Dr. David Magana IG # 0.03 10e3/ul Normal 0.00-0.03 [facility] Comment on above: Performed By: #### C VDTBH #### [facility] [address] [place] [address] Dr. David Magana IG % 0.4 % Normal 0.0-0.5 [facility] Comment on above: Performed By: #### C VDTBH #### [facility] [address] [place] [address] Dr. David Magana LYMPH # 1.0 103/ul Critically low 1.2-3.8 [facility] Comment on above: Performed By: #### C VDTBH #### [facility] [address] [place] [address] Dr. David Magana Lymphocytes/100 WBC (Bld) 13.4 % Critically low 20.5-60.0 [facility] Comment on above: Performed By: #### C VDTBH #### [facility] [address] [place] [address] Dr. David Magana MANUAL DIFF REQ NO Normal [facility] Comment on above: Performed By: #### C VDTBH #### [facility] [address] [address] [address] David Magana MCH (RBC) [Entitic mass] 33.8 pg Normal 25.9-34.0 [facility] Comment on above: Performed By: #### C VDTBH #### [facility] [address] [place] [address] Dr. David Magana MCHC (RBC) [Mass/Vol] 32.5 g/dL Normal 29.9-35.2 [facility] Comment on above: Performed By: #### C VDTBH #### [facility] [address] [place] [address] Dr. David Magana MCV (RBC) [Entitic vol] 104.1 fL Critically high 80.0-94.0 [facility] Comment on above: Performed By: #### C VDTBH #### [facility] [address] [place] [address] Dr. David Magana MONO # 0.8 103/ul Normal 0.3-0.8 [facility] Comment on above: Performed By: #### C VDTBH #### [facility] [address] [place] [address] Dr. David Magana Monocytes/100 WBC (Bld) 10.2 % Normal 1.7-12.0 [facility] Comment on above: Performed By: #### C VDTBH #### [facility] [address] [place] [address] Dr. David Magana NEUT # 5.1 103/ul Normal 1.4-6.5 [facility] Comment on above: Performed By: #### C VDTBH #### [facility] [address] [place] [address] Dr. David Magana Neutrophils/100 WBC (Bld) 68.6 % Normal 43.0-75.0 [facility] Comment on above: Performed By: #### C VDTBH #### [facility] [address] [place] [address] Dr. David Magana Platelet mean volume (Bld) [Entitic vol] 11.3 fL Normal 9.5-13.5 [facility] Comment on above: Performed By: #### C VDTBH #### [facility] [address] [address] [address] David Magana PLT 185 103/ul Normal 150-450 [facility] Comment on above: Performed By: #### C VDTBH #### [facility] [address] [address] [address] David Magana RBC 4.41 106/ul Critically low 4.70-6.10 [facility] Comment on above: Performed By: #### C VDTBH #### [facility] [address] [address] [address] David Magana WBC 7.5 103/ul Normal 4.0-11.0 [facility] Comment on above: Performed By: #### C VDTBH #### [facility] [address] [place] [address] Dr. David Magana FREE T3on 04-28-2022 FREE T3 2.17 pg/mlL Critically low 2.18-3.98 [facility] Comment on above: Performed By: #### P OCGLUC #### [facility] [address] [place] [address] Dr. David Magana LIPID PROFILEon 04-28-2022 CHOL-HDL RATIO NORM SEE BELOW Normal [facility] Comment on above: Result Comment: 3.3 - 4.4 LOW RISK 4.4 - 7.1 AVERAGE RISK 7.1 - 11.0 MODERATE RISK >11.0 HIGH RISK Performed By: #### P OCGLUC #### [facility] [address] [place] [address] Dr. David Magana Cholesterol [Mass/Vol] 234 mg/dL Critically high <=200 [facility] Comment on above: Performed By: #### P OCGLUC #### [facility] [address] [place] [address] Dr. David Magana Cholesterol in HDL [Mass/Vol] 58 mg/dL Normal 40-60 [facility] Comment on above: Performed By: #### P OCGLUC #### [facility] [address] [place] [address] Dr. David Magana Cholesterol in LDL [Mass/Vol] 129.0 mg/dL Normal [facility] Comment on above: Performed By: #### P OCGLUC #### [facility] [address] [address] [address] David Magana Cholesterol.total/Cho lesterol in HDL [Mass ratio] 4.0 {ratio} Normal [facility] Comment on above: Performed By: #### P OCGLUC #### [facility] [address] [address] [address] David Magana HDL NORMAL > or = 60 mg/dl - LO W CARDIOVASCULAR RISK <40 mg/dl - HIGH CARDIOVASCULAR RISK Normal [facility] Comment on above: Performed By: #### P OCGLUC #### [facility] [address] [address] [address] David Magana LDL CALC NORMAL SEE BELOW Normal [facility] Comment on above: Result Comment: <100 mg/dl OPTIMAL 100 - 129 mg/dl NEAR OR ABOVE OPTIMAL 130 - 159 mg/dl BORDERLINE HIGH 160 - 189 mg/dl HIGH >190 mg/dl VERY HIGH Performed By: #### P OCGLUC #### [facility] [address] [address] [address] David Magana Triglyceride [Mass/Vol] 235 mg/dL Critically high <=150 [facility] Comment on above: Performed By: #### P OCGLUC #### [facility] [address] [address] [address] David Magaan VLDL CALC 47.0 mg/dL Normal [facility] Comment on above: Performed By: #### P OCGLUC #### [facility] [address] [address] [address] David Magana PROF 14(COMP METB)on 022 Albumin [Mass/Vol] 3.2 g/dL Critically low 3.4-5.0 [facility] Comment on above: Performed By: #### P OCGLUC #### [facility] [address] [address] [address] David Magana Albumin/Globulin [Mass ratio] 0.9 {ratio} Normal [facility] Comment on above: Performed By: #### P OCGLUC #### [facility] [address] [address] [address] David Magana ALP [Catalytic activity/Vol] 77 U/L Normal 46-116 [facility] Comment on above: Performed By: #### P OCGLUC #### [facility] [address] [address] [address] David Magana ALT [Catalytic activity/Vol] 24 U/L Normal 16-63 [facility] Comment on above: Performed By: #### P OCGLUC #### [facility] [address] [address] [address] David Magana Anion gap [Moles/Vol] 13.1 mmol/L Normal [facility] Comment on above: Performed By: #### P OCGLUC #### [facility] [address] [address] [address] David Magana AST [Catalytic activity/Vol] 13 U/L Critically low 15-37 [facility] Comment on above: Performed By: #### P OCGLUC #### [facility] [address] [address] [address] David Magana Bilirubin [Mass/Vol] 0.3 mg/dL Normal 0.2-1.0 [facility] Comment on above: Performed By: #### P OCGLUC #### [facility] [address] [address] [address] David Magana Calcium [Mass/Vol] 8.8 mg/dL Normal 8.5-10.1 [facility] Comment on above: Performed By: #### P OCGLUC #### [facility] [address] [address] [address] David Magana Chloride [Moles/Vol] 106 mmol/L Normal 98-107 [facility] Comment on above: Performed By: #### P OCGLUC #### [facility] [address] [address] [address] David Magana CO2 [Moles/Vol] 27.5 mmol/L Normal 21.0-32.0 [facility] Comment on above: Performed By: #### P OCGLUC #### [facility] [address] [address] [address] David Magana Creatinine [Mass/Vol] 1.62 mg/dL Critically high 0.70-1.30 [facility] Comment on above: Performed By: #### P OCGLUC #### [facility] [address] [address] [address] David Magana EGFR-AF SENEGALESE 50 mL/min/1.73m2 Critically low >=60 [facility] Comment on above: Performed By: #### P OCGLUC #### [facility] [address] [address] [address] David Magana EGFR-NON AF SENEGALESE 41 mL/min/1.73m2 Critically low >=60 [facility] Comment on above: Performed By: #### P OCGLUC #### [facility] [address] [address] [address] David Magana Globulin (S) [Mass/Vol] 3.4 g/dL Normal [facility] Comment on above: Performed By: #### P OCGLUC #### [facility] [address] [address] [address] David Magana Glucose [Mass/Vol] 206 mg/dL Critically high 74-106 [facility] Comment on above: Performed By: #### P OCGLUC #### [facility] [address] [address] [address] David Magana Potassium [Moles/Vol] 4.6 mmol/L Normal 3.5-5.1 [facility] Comment on above: Performed By: #### P OCGLUC #### [facility] [address] [address] [address] David Magana Protein [Mass/Vol] 6.6 g/dL Normal 6.4-8.2 [facility] Comment on above: Performed By: #### P OCGLUC #### [facility] [address] [address] [address] David Magana Sodium [Moles/Vol] 142 mmol/L Normal 136-145 [facility] Comment on above: Performed By: #### P OCGLUC #### [facility] [address] [place] [address] Dr. David Magana Urea nitrogen [Mass/Vol] 26.0 mg/dL Critically high 7.0-18.0 [facility] Comment on above: Performed By: #### P OCGLUC #### [facility] [address] [place] [address] Dr. David Magana Urea nitrogen/Creatinine [Mass ratio] 16.0 mg/mg Normal [facility] Comment on above: Performed By: #### P OCGLUC #### [facility] [address] [place] [address] Dr. David Magana T4on 04-28-2022 T4 [Mass/Vol] 7.70 ug/dL Normal 4.50-12.10 [facility] Comment on above: Performed By: #### P OCGLUC #### [facility] [address] [place] [address] Dr. David Magana TSHon 04-28-2022 TSH 2.187 uIU/mL Normal 0.358-3.740 [facility] Comment on above: Performed By: #### P OCGLUC #### [facility] [address] [place] [address] Dr. David Magana TSH RANGE SEE BELOW Normal [facility] Comment on above: Result Comment: <0.3 4 UIU/ml HYPERTHYROID 0.34-5.60 UIU/ml EUTHYROID >5.60 UIU/ml HYPOTHYROID Performed By: #### P OCGLUC #### [facility] [address] [place] [address] Dr. David Magana Vital Signs Date Time Vital Sign Value Performing Clinician Facility 04-12-2025 11: Body height 182.9 cm Blaise Chicas DPM Work Phone: [facility] 04-12-2025 11:05040 Body mass index (BMI) [Ratio] 24.95 kg/m2 Blaise Chicas DPM Work Phone: [facility] 04-12-2025 11:0400 Body weight 83.46 kg Blaise Chicas DPM Work Phone: [facility] 04-12-2025 11:05-0400 Respiratory rate 16 /min Blaise Chicas DPM Work Phone: [facility] 04-10-2025 12:58-0400 Body height 182.9 cm Barrie Montoya MD Work Phone: [facility] 04-10-2025 12:58-0400 Body mass index (BMI) [Ratio] 24.95 kg/m2 Barrie Montoya MD Work Phone: [facility] 04-10-2025 12:58-0400 Body weight 83.46 kg Barrie Montoya MD Work Phone: [facility] 03-08-2025 08:56-0400 Body height 182.9 cm Blaise Chicas DPM Work Phone: [facility] 03-08-2025 08:56-0400 Body mass index (BMI) [Ratio] 39.2 kg/m2 Blaise Chicas DPM Work Phone: [facility] 03-08-2025 08:56-0400 Body weight 131.09 kg Blaise Chicas DPM Work Phone: [facility] 03-08-2025 08:56-0400 Respiratory rate 18 /min Blaise Chicas DPM Work Phone: [facility] 12-04-2024 08:44-0500 Diastolic blood pressure 90 mm[Hg] MARQUIS NKANSAH-AMANKRA [facility] 12-04-2024 08:44-0500 Heart rate 78 /min MARQUIS NKANSAH-AMANKRA [facility] 12-04-2024 08:44-0500 Systolic blood pressure 160 mm[Hg] MARQUIS NKANSAH-AMANKRA [facility] 11-30-2024 08:28-0500 Body height 182.9 cm Blaise Chicas DPM Work Phone: [facility] 11-30-2024 08:28-0500 Body mass index (BMI) [Ratio] 39.2 kg/m2 Blaise Chicas DPM Work Phone: [facility] 11-30-2024 08:28-0500 Body weight 131.09 kg Blaise Chicas DPM Work Phone: [facility] 11-30-2024 08:28-0500 Respiratory rate 16 /min Blaise Chicas DPM Work Phone: [facility] 11-02-2024 08:09-0500 Blood Pressure Location MARQUIS NKANSAH-AMANKRA [facility] 11-02-2024 08:09-0500 Diastolic blood pressure 67 mm[Hg] MARQUIS NKANSAH-AMANKRA [facility] 11-02-2024 08:09-0500 Heart rate 65 /min MARQUIS NKANSAH-AMANKRA [facility] 11-02-2024 08:09-0500 Systolic blood pressure 102 mm[Hg] MARQUIS NKANSAH-AMANKRA [facility] 09-14-2024 08:19-0400 Body height 182.9 cm Blaise Chicas DPM Work Phone: [facility] 09-14-2024 08:19-0400 Body mass index (BMI) [Ratio] 39.2 kg/m2 Blaise Chicas DPM Work Phone: [facility] 09-14-2024 08:19-0400 Body weight 131.09 kg Blaise Chicas DPM Work Phone: [facility] 09-14-2024 08:19-0400 Diastolic blood pressure 79 mm[Hg] Blaise Chicas DPM Work Phone: [facility] 09-14-2024 08:19-0400 Heart rate 81 /min Blaise Chicas DPM Work Phone: [facility] 09-14-2024 08:19-0400 Systolic blood pressure 128 mm[Hg] Blaise Chicas DPM Work Phone: [facility] 08-08-2024 10:25-0400 Blood Pressure Location MARQUIS NKANSAH-AMANKRA [facility] 08-08-2024 10:25-0400 Diastolic blood pressure 82 mm[Hg] MARQUIS NKANSAH-AMANKRA [facility] 08-08-2024 10:25-0400 Systolic blood pressure 140 mm[Hg] MARQUIS NKANSAH-AMANKRA [facility] 08-03-2024 08:45-0400 Body height 182.9 cm Blaise Chicas DPM Work Phone: [facility] 08-03-2024 08:45-0400 Body mass index (BMI) [Ratio] 39.2 kg/m2 Blaise Chicas DPM Work Phone: [facility] 08-03-2024 08:45-0400 Body weight 131.09 kg Blaise Chicas DPM Work Phone: [facility] 08-03-2024 08:45-0400 Diastolic blood pressure 82 mm[Hg] Blaise Chicas DPM Work Phone: [facility] 08-03-2024 08:45-0400 Heart rate 75 /min Blaise Chicas DPM Work Phone: [facility] 08-03-2024 08:45-0400 Respiratory rate 18 /min Blaise Chicas DPM Work Phone: [facility] 08-03-2024 08:45-0400 Systolic blood pressure 130 mm[Hg] Blaise Chicas DPM Work Phone: [facility] 08-01-2024 11:24-0400 Body height 182.9 cm Barrie Montoya MD Work Phone: [facility] 08-01-2024 11:24-0400 Body mass index (BMI) [Ratio] 39.2 kg/m2 Barrie Montoya MD Work Phone: [facility] 08-01-2024 11:24-0400 Body weight 131.09 kg Barrie Montoya MD Work Phone: [facility] 08-01-2024 11:24-0400 Diastolic blood pressure 93 mm[Hg] Barrie Montoya MD Work Phone: [facility] 08-01-2024 11:24-0400 Heart rate 73 /min Barrie Montoya MD Work Phone: [facility] 08-01-2024 11:24-0400 Systolic blood pressure 182 mm[Hg] Barrie Montoya MD Work Phone: [facility] 07-20-2024 08:27-0400 Body height 182.9 cm Blaise Chicas DPM Work Phone: [facility] 07-20-2024 08:27-0400 Body mass index (BMI) [Ratio] 26.04 kg/m2 Blaise Chicas DPM Work Phone: [facility] 07-20-2024 08:27-0400 Body weight 87.09 kg Blaise Chicas DPM Work Phone: [facility] 07-20-2024 08:27-0400 Diastolic blood pressure 81 mm[Hg] Blaise Chicas DPM Work Phone: [facility] 07-20-2024 08:27-0400 Heart rate 75 /min Blaise Chicas DPM Work Phone: [facility] 07-20-2024 08:27-0400 Respiratory rate 18 /min Blaise Aviva DPM Work Phone: [facility] 07-20-2024 08:27-0400 Systolic blood pressure 130 mm[Hg] Blaise Chicas DPM Work Phone: [facility] 07-06-2024 08:27-0400 Body height 182.9 cm Blaise Chicas DPM Work Phone: [facility] 07-06-2024 08:27-0400 Body mass index (BMI) [Ratio] 26.04 kg/m2 Blaise Brown DPM Work Phone: [facility] 07-06-2024 08:27-0400 Body weight 87.09 kg Blaise Aviva DPM Work Phone: [facility] 07-06-2024 08:27-0400 Diastolic blood pressure 81 mm[Hg] Blaise Chicas DPM Work Phone: [facility] 07-06-2024 08:27-0400 Heart rate 77 /min Blaise Aviva DPM Work Phone: [facility] 07-06-2024 08:27-0400 Systolic blood pressure 128 mm[Hg] Blaise Chicas DPM Work Phone: [facility] 10-14-2023 14:33-0500 Diastolic blood pressure 70 mm[Hg] Nereyda Joyametz [facility] 10-14-2023 14:33-0500 Mean blood pressure 93 mm[Hg] Nereyda Patricia [facility] 10-14-2023 14:33-0500 Systolic blood pressure 138 mm[Hg] Nereyda Patricia [facility] 10-14-2023 14:18-0500 Blood Pressure Location Nereyda Patricia [facility] 10-14-2023 14:18-0500 Body temperature 97.88 [degF] Nereyda Patricia [facility] 10-14-2023 14:18-0500 Diastolic blood pressure 73 mm[Hg] Nereyda Patricia [facility] 10-14-2023 14:18-0500 Heart rate 91 /min Nereyda Patricia [facility] 10-14-2023 14:18-0500 Systolic blood pressure 143 mm[Hg] Nereyda Patricia [facility] 10-01-2023 12:13-0500 Diastolic blood pressure 66 mm[Hg] Nereyda Patricia [facility] 10-01-2023 12:13-0500 Mean blood pressure 104 mm[Hg] Nereyda Patricia [facility] 10-01-2023 12:13-0500 Systolic blood pressure 179 mm[Hg] Nereyda Patricia [facility] 10-01-2023 12:10-0500 Blood Pressure Location Nereyda Patricia [facility] 10-01-2023 12:10-0500 Body temperature 98.42 [degF] Nereyda Patricia [facility] 10-01-2023 12:10-0500 Diastolic blood pressure 77 mm[Hg] Nereyda Patricia [facility] 10-01-2023 12:10-0500 Heart rate 81 /min Nereyda Patricia [facility] 10-01-2023 12:10-0500 Respiratory rate 14 /min Nereyda Patricia [facility] 10-01-2023 12:10-0500 Systolic blood pressure 168 mm[Hg] Nereyda Patricia [facility] 06-10-2023 10:43-0400 Diastolic blood pressure 64 mm[Hg] Nereyda Patricia [facility] 06-10-2023 10:43-0400 Heart rate 76 /min Nereyda Patricia [facility] 06-10-2023 10:43-0400 Respiratory rate 16 /min Nereyda Patricia [facility] 06-10-2023 10:43-0400 SaO2% (BldA) [Mass fraction] 95 % Nereyda Patricia [facility] 06-10-2023 10:43-0400 Systolic blood pressure 121 mm[Hg] Nereyda Patricia [facility] 04-13-2023 14:19-0400 Diastolic blood pressure 70 mm[Hg] Nereyda Patricia [facility] 04-13-2023 14:19-0400 Mean blood pressure 95 mm[Hg] Nereyda Patricia [facility] 04-13-2023 14:19-0400 Systolic blood pressure 146 mm[Hg] Nereyda Patricia [facility] 04-13-2023 14:15-0400 Blood Pressure Location Nereyda Patricia [facility] 04-13-2023 14:15-0400 Body temperature 97.7 [degF] Nereyda Patricia [facility] 04-13-2023 14:15-0400 Diastolic blood pressure 87 mm[Hg] Nereyda Joyametz [facility] 04-13-2023 14:15-0400 Heart rate 70 /min Nereyda Patricia [facility] 04-13-2023 14:15-0400 Systolic blood pressure 150 mm[Hg] Nereydabruce JoyaPatricia [facility] 06-09-2022 10:02-0400 Body temperature 96.98 [degF] Nereydabruce JoyaPatricia [facility] 06-09-2022 10:02-0400 Diastolic blood pressure 75 mm[Hg] Nereydabruce JoyaPatricia [facility] 06-09-2022 10:02-0400 Heart rate 72 /min Nereydabruce JoyaPatricia [facility] 06-09-2022 10:02-0400 SaO2% (BldA) [Mass fraction] 97 % Nereyda Joyametz [facility] 06-09-2022 10:02-0400 Systolic blood pressure 139 mm[Hg] Nereyda Patricia [facility] 05-11-2022 11:30-0400 Diastolic blood pressure 102 mm[Hg] Bender SALAM [facility] 05-11-2022 11:30-0400 Heart rate 86 /min Bender SALAM [facility] 05-11-2022 11:30-0400 Respiratory rate 15 /min Bender SALAM [facility] 05-11-2022 11:30-0400 SaO2% (BldA) [Mass fraction] 95 % Bender SALAM [facility] 05-11-2022 11:30-0400 Systolic blood pressure 172 mm[Hg] Bender SALAM [facility] 05-11-2022 11:15-0400 Diastolic blood pressure 88 mm[Hg] Bender SALAM [facility] 05-11-2022 11:15-0400 Heart rate 86 /min Bender SALAM [facility] 05-11-2022 11:15-0400 Respiratory rate 18 /min Bender SALAM [facility] 05-11-2022 11:15-0400 SaO2% (BldA) [Mass fraction] 97 % Bender SALAM [facility] 05-11-2022 11:15-0400 Systolic blood pressure 170 mm[Hg] Bender SALAM [facility] 05-11-2022 11:10-0400 Diastolic blood pressure 108 mm[Hg] Bender SALAM [facility] 05-11-2022 11:10-0400 Heart rate 85 /min Bender SALAM [facility] 05-11-2022 11:10-0400 Respiratory rate 14 /min Bender SALAM [facility] 05-11-2022 11:10-0400 SaO2% (BldA) [Mass fraction] 97 % Bender SALAM [facility] 05-11-2022 11:10-0400 Systolic blood pressure 157 mm[Hg] Bender SALAM [facility] 05-11-2022 11:02-0400 Body temperature 97.34 [degF] Bender SALAM [facility] 05-11-2022 10:27-0400 Blood Pressure Location Bender SALAM [facility] 05-11-2022 10:23-0400 Blood Pressure Location Bender SALAM [facility] 05-11-2022 10:23-0400 Body temperature 98.24 [degF] Bender SALAM [facility] 03-31-2022 09:53-0400 Blood Pressure Location Nereydabruce JoyaPatricia [facility] 03-31-2022 09:53-0400 Body temperature 97.7 [degF] Nereydabruce JoyaPatricia [facility] 03-31-2022 09:53-0400 Diastolic blood pressure 72 mm[Hg] Nereyda Joyametz [facility] 03-31-2022 09:53-0400 Heart rate 73 /min Nereyda Joyametz [facility] 03-31-2022 09:53-0400 SaO2% (BldA) [Mass fraction] 96 % Nereydabruce JoyaPatriica [facility] 03-31-2022 09:53-0400 Systolic blood pressure 129 mm[Hg] Nereyda Joyametz [facility] Encounters Encounter Date Encounter Type Care Provider Facility Start: 06-11-2025 ambulatory LU Cabrera ty:[facility] Start: 04-12-2025 End: 04-12-2025 Bamboo flowsheet Blaise Chicas DPM Work Phone: [facility] Start: 04-12-2025 End: 04-12-2025 Bamboo flowsheet Blaise Chicas DPM Work Phone: [facility] Start: 04-12-2025 End: 04-12-2025 Patient encounter procedure Blaise Chicas DPM Work Phone: [facility] Comment on above: Verruca plantaris (P rimary Dx); Foot pain, right; Diabetes mellitus due to underlying condition with diabetic polyneuropathy, 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 ([facility]); Pain due to onychomycosis of toenails of both feet Start: 04-10-2025 End: 04-10-2025 Bamboo flowsheet Barrie Montoya MD Work Phone: [facility] Start: 04-10-2025 End: 04-10-2025 Bamboo flowsheet Barrie Montoya MD Work Phone: [facility] Start: 04-10-2025 End: 04-10-2025 Office outpatient visit 25 minutes Barrie Montoya MD Work Phone: [facility] Comment on above: Benign essential mikel mor (Primary Dx); Neurogenic pain; Sequelae of cerebral infarction; Cervical paraspinal muscle spasm; JOSIAH (obstructive sleep apnea); Carotid stenosis, bilateral Start: 03-12-2025 End: 03-12-2025 ambulatory [facility] Start: 03-08-2025 End: 03-08-2025 Bamboo flowsheet Blaise Chicas DPM Work Phone: [facility] Start: 03-08-2025 End: 03-08-2025 Bamboo flowsheet Blaise Chicas DPM Work Phone: [facility] Start: 03-08-2025 End: 03-08-2025 Postop follow up visit related to original px Blaise Chicas DPM Work Phone: [facility] Comment on above: Verruca plantaris (P rimary Dx); Foot pain, right; Diabetes mellitus due to underlying condition with diabetic polyneuropathy, 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 ([facility]); Pain due to onychomycosis of toenails of both feet Start: 03-08-2025 End: 03-08-2025 ambulatory BLAISE CHICAS Not Available Start: 02-28-2025 End: 02-28-2025 ambulatory [facility] Start: 01-03-2025 End: [facility]03[facility] Start: 12-14-2024 End: 12-14-2024 ambulatory [facility] Start: 12-04-2024 End: 12-04-2024 ambulatory MARQUIS LOUISE Facility:[facility] Start: 12-04-2024 End: 12-04-2024 Patient encounter procedure MARQUIS LOUISE [facility] Start: 11-30-2024 End: 11-30-2024 Bamboo flowsheet Blaise Chicas DPM Work Phone: [facility] Start: 11-30-2024 End: 11-30-2024 Bamboo flowsheet Blaise Chicsa DPM Work Phone: [facility] Start: 11-30-2024 End: 11-30-2024 Patient encounter procedure Blaise Chicas DPM Work Phone: [facility] Comment on above: Verruca plantaris (P rimary Dx); Foot pain, right; Diabetes mellitus due to underlying condition with diabetic polyneuropathy, unspecified whether senior care insulin use ([facility]); Pain due to onychomycosis of toenails of both feet Start: 11-30-2024 End: 11-30-2024 ambulatory BLAISE Cara AVIVA Not Available Start: 11-06-2024 End: 11-06-2024 ambulatory Mejia SINGH Facility:[facility] Start: 11-06-2024 End: 11-06-2024 Patient encounter procedure Mejia SINGH [facility] Start: 11-02-2024 End: 11-02-2024 ambulatory MARQUIS NKANSAH-AMANKRA Facility:[facility] Start: 11-02-2024 End: 11-02-2024 Patient encounter procedure MARQUIS NKANSAH-AMANKRA [facility] Start: 10-30-2024 End: 10-30-2024 ambulatory Mejia R SINGH Facility:[id number] Start: 10-25-2024 End: 10-25-2024 ambulatory MARQUIS NKANSAH-AMANKRA Facility:[facility] Start: 10-23-2024 End: 10-23-2024 ambulatory MARQUIS NKANSAH-AMANKRA Facility[facility] Start: 10-23-2024 End: 10-23-2024 Patient encounter procedure MARQUIS NKANSAH-AMANKRA [facility] Start: 10-02-2024 End: 10-02-2024 ambulatory MARQUIS NKANSAH-AMANKRA Facility:[facility] Start: 09-25-2024 End: 09-25-2024 ambulatory MARQUIS NKANSAH-AMANKRA Facility:[facility] Start: 09-25-2024 End: 09-25-2024 Patient encounter procedure MARQUIS NKANSAH-AMANKRA [facility] Start: 09-14-2024 End: 09-14-2024 Bamboo flowsheet Blaise Chicas DPM Work Phone: [facility] Start: 09-14-2024 End: 09-14-2024 Bamboo flowsheet Blaise Chicas DPM Work Phone: [facility] Start: 09-14-2024 End: 09-14-2024 Patient encounter procedure Blaise Chicas DPM Work Phone: [facility] Comment on above: Verruca [...] minutes Rodney Joy MD Work Phone: [facility] Comment on above: Melanocytic nevus of trunk (Primary Dx); Actinic keratosis; Lentigines; Seborrheic keratosis Start: 08-24-2024 End: 08-24-2024 ambulatory RODNEY JOY Not Available Start: 08-22-2024 ambulatory [facility] Facility: [place] Start: 08-17-2024 [facility] [place] Start: 08-14-2024 End: 08-17-2024 Telephone encounter Barrie Montoya MD Work Phone: [facility] Start: 08-08-2024 End: 08-08-2024 ambulatory MARQUIS LOUISE Facility:[facility] Start: 08-08-2024 End: 08-08-2024 Patient encounter procedure MARQUIS LOUISE [facility] Start: 08-03-2024 End: 08-03-2024 Bamboo [...] Bamboo flowsheet Barrie Montoya MD Work Phone: [facility] Start: 08-01-2024 End: 08-01-2024 Office [...] 07-20-2024 End: 07-20-2024 Patient encounter procedure Blaise Cara Aviva DPM Work Phone: [facility] Comment on above: Verruca plantaris (P rimary Dx); Foot pain, right; Xerosis cutis Start: 07-20-2024 End: 07-20-2024 ambulatory BLAISE CHICAS Not Available Start: 07-06-2024 End: 07-06-2024 Bamboo flowsheet Blaise Chicas DPM Work Phone: [facility] Start: 07-06-2024 End: 07-06-2024 Bamboo flowsheet Blaise Chicas DPM Work Phone: [facility] Start: 07-06-2024 End: 07-06-2024 Office outpatient visit 15 minutes Blaise Chicas DPM Work Phone: [facility] Comment on above: Xerosis cutis (Prima ry Dx); Verruca plantaris; Foot pain, right; Diabetes mellitus due to underlying condition with diabetic polyneuropathy, 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 ([facility]); Onychomycosis; Toe pain, bilateral Start: 07-06-2024 End: 07-06-2024 ambulatory BLAISE CHICAS Not Available Start: 07-05-2024 End: 07-05-2024 ambulatory JEFF [facility] Start: 06-07-2024 End: 06-07-2024 ambulatory [address]IE [facility] Start: 06-05-2024 End: 06-05-2024 [facility] Start: 06-01-2024 End: 06-01-2024 ambulatory BLAISE CHICAS Not Available Start: 04-20-2024 End: 04-20-2024 ambulatory BLAISE CHICAS Not Available Start: 02-02-2024 ambulatory Nereyda Cabrera ty:Thiagous Start: 12-09-2023 ambulatory Nereyda Gomez Facili ty:[facility] Start: 10-14-2023 End: 10-14-2023 Patient encounter procedure Nereyda Gomez [facility] Start: 10-01-2023 End: 10-01-2023 Patient encounter procedure Nereyda Gomez [facility] Start: 10-01-2023 End: 10-01-2023 Patient encounter procedure Nereyda Joyametz [facility] Start: 09-13-2023 End: 09-13-2023 Patient encounter procedure Nereyda Gomez [facility] Start: 06-10-2023 End: 06-10-2023 Patient encounter procedure Nereyda Joyametz [facility] Start: 04-15-2023 End: 04-15-2023 Lab Drop off Nereyda Gomez [facility] Start: 04-13-2023 End: 04-13-2023 Patient encounter procedure Nereyda Gomez [facility] Start: 03-24-2023 End: 03-25-2023 ambulatory [...] End: 06-09-2022 Patient encounter procedure Nereyda Gomez [facility] Start: 06-08-2022 End: 06-09-2022 ambulatory GAMALIEL DALEY Facility:[facility] Start: 05-11-2022 End: 05-11-2022 Patient encounter procedure Napoleon NOVA [facility] Start: 04-28-2022 End: 04-29-[address] VAN YOUSSEF . Facility:[facility] Start: 03-31-2022 End: 03-31-2022 Patient encounter procedure Nereyda Gomez [facility] Start: 2019 End: 02-07-2019 Patient encounter procedure DEFAULT PHYSICIAN Facility:[facility] Procedures Date Procedure Procedure [...] Treatment Date Care Activity Detail Author Start: 10-09-2025 End: 10-09-2025 Patient encounter procedure 10/09/2025 1:45 PM EST Office Visit [facility] [address] [place] [address] Barrie Montoya MD [address] [facility] [address] [place], [place] [id number] [facility] Start: 09-11-2025 End: 09-11-2025 Patient encounter procedure 09/11/2025 1:15 PM EDT Office Visit [facility] [address] [place] [address] Rodney Joy MD [address] [place] [address] [facility] Start: 08-23-2025 End: 08-23-2025 Patient encounter procedure 08/23/2025 10:50 AM EDT Office Visit [facility] [address] [place] [address] Rodney Joy MD [address] [place], [place] [id number] [facility] Start: 06-21-2025 End: 06-21-2025 Patient encounter procedure 06/21/2025 10:40 AM EDT Office Visit [facility] [address] [facility] [address] [place] [phone] Blaise Chicas, LUIS E [address] [facility] 5 [place] [address] [facility] Start: 04-12-2025 End: 04-12-2025 Patient encounter procedure [facility] Comment on above: Verruca plantaris (P rimary Dx); Foot pain, right; Diabetes mellitus due to underlying condition with diabetic polyneuropathy, unspecified whether senior care insulin use ([facility]); Pain due to onychomycosis of toenails of both feet Start: 03-08-2025 End: 03-08-2025 Patient encounter procedure 03/08/2025 9:20 AM EDT Office Visit [facility] [address] [address] Blaise Chicas DPM [address] [address] Verruca plantaris (Primary Dx); Foot pain, right; Diabetes mellitus due to underlying condition with diabetic polyneuropathy, 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 ([facility]/HCC); Pain due to onychomycosis of toenails of both feet [facility] Comment on above: Verruca plantaris (P rimary Dx); Foot pain, right; Diabetes mellitus due to underlying condition with diabetic polyneuropathy, unspecified whether senior care insulin use ([facility]); Pain due to onychomycosis of toenails of both feet Start: 02-15-2025 End: 02-15-2025 Patient encounter procedure 02/15/2025 8:40 AM EDT Office Visit [facility] [address] [phone] Blaise Chicas DPM [address] [address] [facility] Start: 11-30-2024 End: 11-30-2024 Patient encounter procedure [facility] Comment on above: Verruca plantaris (P rimary Dx); Foot pain, right; Diabetes mellitus due to underlying condition with diabetic polyneuropathy, unspecified whether senior care insulin use (CMS/HCC); Pain due to onychomycosis of toenails of both feet Start: 10-10-2024 End: 10-10-2024 Patient encounter procedure 10/10/2024 10:45 AM EST Office Visit [facility] [address] [facility] [address] [place] [phone] Barrie Montoya MD [address] [address] [facility] Start: 09-14-2024 End: [...] procedure 08/01/2024 1:30 PM EDT Office Visit [facility] [address] [place] [address] [place] [phone] Barrie Montoya MD [address] [address] [facility] Start: 08-01-2024 End: 08-01-2024 Patient encounter procedure 08/01/2024 11:30 AM EDT Office Visit [facility] [address] [facility] [address] [place] [phone] Barrie Montoya MD [address] [address] Arrived [facility] Comment on above: Arrived Start: 07-20-2024 End: 07-20-2024 Patient encounter procedure [facility] Comment on above: Verruca plantaris (P rimary Dx); Foot pain, right; Xerosis cutis Start: 07-16-2024 Influenza vaccination Influenza Vacc ine (#1) [facility] Start: 07-06-2024 End: 07-06-2024 Patient encounter procedure 07/06/2024 8:40 AM EDT Office Visit [facility] [address] [facility] [address] [place] [address] Blaise Chicas DPM [address] [facility] 5 [place] [address] Verruca plantaris (Primary Dx); Foot pain, right; Diabetes mellitus due to underlying condition with diabetic polyneuropathy, unspecified whether senior care insulin use ([facility]); Onychomycosis; Toe pain, bilateral; Xerosis cutis [facility] Comment on above: Verruca plantaris (P rimary Dx); Foot pain, right; Diabetes mellitus due to underlying condition with diabetic polyneuropathy, 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 (congestive heart failure) ([facility]), Chronic kidney disease, COPD (chronic obstructive pulmonary disease) ([facility]), Coronary artery disease, Diabetes mellitus ([facility]), Heart valve disease, Hypertension, Pericardial effusion, and Sleep apnea. History of paroxysmal atrial fibrillation maintained on anticoagulation with Eliquis, aortic stenosis, renal artery stenosis, and hypertension. He had stenting of the left renal artery from the left radial approach on 05/01/2015 (Express SD 6 mm x 18 mm stent). He was admitted to the [facility] in August 2022 due to hyponatremia, [...] Faculty, Division of Nephrology, Department of Medicine, [facility]. [facility] Patient: Nadir Beth; 84 y.o. Visit date: 06/07/24 Reason for today's visit: Follow up for CKD stage 3, Hypertension, Edema/ Fluid overload, and Electrolytes disturbances SUBJECTIVE: BACKGROUND: Nadir Beth is a 84 y.o. male has a past medical history of Atrial fibrillation ([facility]), CHF (congestive heart failure) ([facility]), Chronic kidney disease, COPD (chronic obstructive pulmonary disease) ([facility]), Coronary artery disease, Diabetes mellitus ([facility]), Heart valve disease, Hypertension, Pericardial effusion, and Sleep apnea. History of paroxysmal atrial fibrillation maintained on anticoagulation with Eliquis, aortic stenosis, renal artery stenosis, and hypertension. He had stenting of the left renal artery from the left radial approach on 05/01/2015 (Express SD 6 mm x 18 mm stent). He was admitted to the [facility] in August 2022 due to hyponatremia, [...] included)...[facility]07-22-[facility] NoteUT Cardiology - [facility] Subjective Nadir Beth is a [...] therapy. He was admitted to the [facility] in August 2022 due to hyponatremia, hyperkalemia and acute kidney injury, leukocytosis secondary to COVID-19 causing dehydration. I saw him on 05/24/2023 and the office and he had significant evidence of volume overload by exam and echocardiogram. I intensified his diuretic regimen. He ended up getting admitted to the [facility] with acute heart failure exacerbation and [...] (more content not included)... [facility]11-30-2023 Hospital Discharge instructions Patient [...] as fried or sweet foods. These include mexican fries, hamburgers, cookies, candies, and soda. Drink enough fluid to keep your urine pale yellow. General instructions Exercise regularly or as told by your health care provider. Try to do 150 minutes of moderate exercise each week. Use the bathroom when you have the urge to go. Do not hold it in. Take kuhd-yvz-mpniail and prescription medicines only as told by [...] to keep your urine pale yellow. Take wern-fjl-tuhlpqe and prescription medicines only as told by your health care provider. This includes any fiber supplements. This information is not intended to replace advice given to you by your health care provider. Make sure you discuss any questions you have with your health care provider. Document Revised: 09/18/2020 Document Reviewed: 09/18/2020 Turning Art Patient Education 2022 Vitasol. Follow Up Care 10/01/2023 12:57:46 With:Nereyda Gomez CNP Address: When:1 month [facility] 11-17-2023 Hospital Discharge instructions Patient [...] Bulgur wheat. Millet. Quinoa. Bran muffins. Popcorn. [place] wafer crackers. Meats and other proteins [place] beans, kidney beans, and menedz beans. Soybeans. Split peas. Lentils. Nuts and [...] Cream cheese. Sour cream. Fats and oils Lutsen. Beverages Soft drinks. Other foods Cakes and [...] provider. Document Revised: 03/06/2021 Document Reviewed: 03/06/2021 Turning Art Patient Education 2022 Vitasol. Follow Up Care 09/20/2023 08:43:45 With:Nereyda Gomez CNP Address:Unknown When: Unknown [facility] 11-17-2023 Evaluation + Plan note Future Scheduled Tests Laboratory* CBC w/ Auto Diff 10/01/23 * Comprehensive Metabolic Panel 10/01/23 * Thyroid Stimulating Hormone 10/01/23 [facility] 07-27-2023 Hospital Discharge instructions Patient [...] hard liquor (44 mL). General instructions Take jyxs-qdm-jfazdxv and prescription medicines only as told by [...] provider. Document Revised: 02/19/2021 Document Reviewed: 02/19/2021 Turning Art Patient Education 2022 Vitasol. Follow Up Care 04/13/2023 14:39:27 With:Nereyda Gomez CNP Address: When:3 months [facility] 05-30-2023 Hospital Discharge instructions Patient [...] including vitamins, herbs, eye drops, creams, and edhi-hzt-xrnrkue medicines. Any problems you or family members [...] provider tells you to take them. Taking gmoz-yml-wvapbin medicines, vitamins, herbs, and supplements. General instructions [...] provider. Document Revised: 10/26/2022 Document Reviewed: 06/24/2022 Turning Art Patient Education 2022 Vitasol. Follow Up Care 04/09/2023 11:27:16 With:Nereyda Gomez CNP Address: When:1 month [facility] 09-03-2022 NoteEXAM: US KARI DOP LEG RT DATE: 07/18/2022 4:46 AM [...] authenticated by: PREETI ROBERTS Date: 2022-07-18 09:05[facility]07-26-2022 Hospital Discharge instructions Patient Education 06/09/2022 [...] serving. Talk with a diet and nutrition counselor (dietitian) if you have questions about specific [...] Bulgur wheat. Millet. Quinoa. Bran muffins. Popcorn. [place] wafer crackers. Meats and other proteins [place], kidney, and mendez beans. Soybeans. Split peas. [...] Cream cheese. Sour cream. Fats and oils Lutsen. Beverages Soft drinks. Other foods Cakes and [...] Document Reviewed: 09/05/2018 Elsevier Patient Education 2020 Elsevier Inc. 06/09/2022 10:13:34 Hemorrhoids Hemorrhoids Hemorrhoids are swollen [...] 3 times a day. General instructions Take kaqz-tqw-eqbrnlf and prescription medicines only as told by [...] 10/29/2001 Document Revised: 03/29/2020 Document Reviewed: 03/23/2019 Turning Art Patient Education 2020 Vitasol. 06/09/2022 10:13:31 Diverticulosis Diverticulosis Diverticulosis is a [...] overweight. Not getting enough exercise. Smoking. Taking epjv-mum-ioyjjgv pain medicines, like aspirin and ibuprofen. Having [...] care provider or your diet and nutrition counselor (dietitian). ?Take a fiber supplement or probiotic, if your health care provider approves. Take evgp-etm-rsfndry and prescription medicines only as told by [...] 07/29/2005 Document Revised: 10/14/2018 Document Reviewed: 09/20/2017 Turning Art Patient Education 2020 Turning Art Inc. 06/09/2022 10:13:30 Colon Polyps Colon Polyps [...] 07/28/2005 Document Revised: 02/16/2019 Document Reviewed: 02/16/2019 Turning Art Patient Education 2020 Vitasol. Follow Up Care 05/13/2022 14:18:17 With:Nereyda Gomez CNP Address: When:1 year only if needed [facility] 06-27-2022 Evaluation + Plan noteExtracted from: Title:Anesthesia post op endo Author:Jeffrey Gr MD Date:05/11/22 Plan Transfer/ Discharge: Patient can be discharged from PACU when criteria met. Condition good. Extracted from: Title:Anesthesia Pre-Op endo 2 Author:Jeffrey Gr MD Date:05/11/22 Plan [place] Society of Anesthesiologists (ASA) physical status classification: [...] heart and lungs, allergic reactions, and .. [facility]06-27-2022 Hospital Discharge instructions Patient Education 05/11/2022 [...] 07/28/2005 Document Revised: 02/16/2019 Document Reviewed: 02/16/2019 Turning Art Patient Education 2020 Vitasol. 05/11/2022 11:13:39 Diverticulosis MAGR (CUSTOM) Diverticulosis Many [...] unsweetened, w/added ascorbic acid 1 cup 0.5 [place] 1 cup 0.7 Vegetables Cooked Green beans 1 cup 4.0 Carrots 1/2 cup sliced 2.3 Peas 1 cup 8.8 Potato (baked, with skin) 1 medium potato 3.8 Raw [place] (with peel) 1 cucumber 1.5 Lettuce 1 [...] 8.7 Peanuts 1/2 cup 7.9 Chart from [facility] 2013. SEEK IMMEDIATE MEDICAL CARE IF: You [...] Nutrient Database for Standard Reference. Available at http://www.[employer].usda.gov/fnic/foodcomp/search/. Information adapted from: [facility] [place] Patient Information 2010 MEDEM. ams AG 2013 http://www.SoundFocus/contents/cnjugmpeqldp-puniuyv-stgvqd-the-basics Follow Up Care 03/31/2022 10:27:32 With:Napoleon NOVA Address: [address] [place] [address]. [address] [place] [address] Business (1) When: Unknown Comments:office will call for follow up [facility]05-17-2022 Hospital Discharge instructions Patient Education 03/31/2022 [...] including vitamins, herbs, eye drops, creams, and fgre-fvl-ddetvni medicines. Any problems you or family members [...] 10/29/2001 Document Revised: 08/24/2018 Document Reviewed: 01/12/2017 Turning Art Patient Education 2020 Vitasol. Follow Up Care 03/23/2022 12:11:50 With:Nereyda Gomez CNP Address: When:1 month [facility] The Kernelation + Plan note Future Appointments Appointment Date:05/25/2022 08:45:00 AM Scheduled Provider: Location:[facility] Appointment Type:[facility] [employer]uation + Plan note Future Appointments Appointment Date:06/10/2023 10:40:00 AM Scheduled Provider:Nereyda Gomez CNP [facility] App[facility] Type:[facility] Follow Up Future Scheduled Tests Laboratory* Fecal WBC Lactoferrin 04/13/23 * Giardia lamblia, Direct Detection EIA 04/13/23 * O & P Exam, Routine 04/13/23 * Clostridium Difficile PCR 04/13/23 * Enteric Panel by PCR 04/13/23 [facility] Evaluation + Plan note Future Appointments Appointment Date:06/10/2023 10:40:00 AM Scheduled Provider:Nereyda Gomez CNP Location[facility] Appointment Type:[facility] Follow Up Diagnostic Tests Pending * O & P Exam, Routine 04/15/23 * Giardia lamblia, Direct Detection [facility]ments Appointment Date:09/13/2023 10:40:00 AM Scheduled Provider:Nereyda Gomez CNP Location:[facility] Appointment Type:[facility] Follow Up [facility] Evaluation + Plan note Future Appointments Appointment Date:10/14/2023 02:20:00 PM Scheduled Provider:Nereyda Gomez CNP Location:[facility] Appointment Type:BAD Follow Up Future Scheduled Tests Laboratory* CBC w/ Auto Diff 10/01/23 * Comprehensive Metabolic Panel 10/01/23 * Thyroid Stimulating Hormone 10/01/23 [facility] Evaluation + Plan note Future Appointments Appointment Date:12/09/2023 02:00:00 PM Scheduled Provider:Nereyda Gomez CNP Location:[facility] Appointment Type:BAD Follow Up Future Scheduled Tests Laboratory* CBC w/ Auto Diff 10/01/23 * Comprehensive Metabolic Panel 10/01/23 * Thyroid Stimulating Hormone 10/01/23 [facility] Evaluation + Plan note Future Appointments Appointment Date:10/26/2024 09:30:00 AM Scheduled Provider: Location:[facility] Appointment Type:URO Nurse Visit Appointment Date:12/04/2024 08:40:00 AM Scheduled Provider:MARQUIS LOUISE MD Location:[facility] Appointment Type:URO Office Visit Future Scheduled Tests Laboratory* CBC w/ Auto Diff 10/01/23 * Comprehensive Metabolic Panel 10/01/23 * Thyroid Stimulating Hormone 10/01/23 [facility] Evaluation + Plan note Future Appointments Appointment Date:11/06/2024 09:00:00 AM Scheduled Provider: Location:[facility] Appointment Type:URO Nurse Visit Appointment Date:12/04/2024 08:40:00 AM Scheduled Provider:MARQUIS LOUISE MD Location:[facility] Appointment Type:URO Office Visit Future Scheduled Tests Laboratory* CBC w/ Auto Diff 10/01/23 * Comprehensive Metabolic Panel 10/01/23 * Thyroid Stimulating Hormone 10/01/23 [facility] evaluation + Plan note Future Appointments Appointment Date:12/04/2024 08:40:00 AM Scheduled Provider:MARQUIS LOUISE MD Location:[facility] Appointment Type:URO Office Visit Future Scheduled Tests Laboratory* CBC w/ Auto Diff 10/01/23 * Comprehensive Metabolic Panel 10/01/23 * Thyroid Stimulating Hormone 10/01/[address] [facility] evaluation + Plan note Future Appointments Appointment Date:06/11/2025 11:40:00 AM Scheduled Provider:LU OLMEDO PA-C Location:[facility] Appointment Type:URO Office Visit Future Scheduled Tests Laboratory* CBC w/ Auto Diff 10/01/23 * Comprehensive Metabolic Panel 10/01/23 * Thyroid Stimulating Hormone 10/01/23 [facility] Evaluation note* Diagnosis Melanocytic nevus [...] condition with diabetic polyneuropathy, unspecified whether senior care insulin use (CMS/HCC) Pain due to onychomycosis of toenails of both feet [facility] Diagnosis Xerosis cutis- Primary Other specified disease of sebaceous glands Verruca plantaris Plantar wart Foot pain, right Pain in soft tissues of limb Diabetes mellitus due to underlying condition with diabetic polyneuropathy, 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 (CMS/HCC) Onychomycosis Dermatophytosis of nail Toe pain, bilateral [facility]* Diagnosis Verruca plantaris- Primary Plantar wart Foot pain, right Pain in soft tissues of limb Xerosis cutis Other specified disease of sebaceous glands [facility]* Diagnosis Neurogenic pain- Primary Benign essential tremor Essential and other specified forms of tremor [facility]* [...] condition with diabetic polyneuropathy, unspecified whether senior care insulin use (CMS/HCC) Pain due to onychomycosis of toenails of both feet [facility]* [...] of both feet documented in this encounter [facility]* Diagnosis Benign essential tremor- Primary Essential and other specified forms of tremor Neurogenic pain Cervical paraspinal muscle spasm Spasm of muscle Polyneuropathy Unspecified hereditary and idiopathic peripheral neuropathy Neurogenic pain- Primary Benign essential tremor Essential and other specified forms of tremor Benign essential tremor- Primary Essential and other specified forms of tremor Neurogenic pain 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 Cervical paraspinal muscle spasm Spasm of muscle JOSIAH (obstructive sleep apnea) Obstructive sleep apnea (adult) (pediatric) Carotid stenosis, bilateral Occlusion and stenosis of carotid artery without mention of cerebral infarction Verruca plantaris- Primary Plantar wart Foot pain, right Pain in soft tissues of limb Diabetes mellitus due to underlying condition with diabetic polyneuropathy, unspecified whether senior care insulin use (CMS/HCC) Pain due to onychomycosis of toenails of both feet [facility]* Diagnosis Benign essential tremor- Primary Essential and other specified forms of tremor Neurogenic pain Cervical paraspinal muscle spasm Spasm of muscle Polyneuropathy Unspecified hereditary and idiopathic peripheral neuropathy Neurogenic pain- Primary Benign essential tremor Essential and other specified forms of tremor Benign essential tremor- Primary Essential and other specified forms of tremor Neurogenic pain 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 prior to appointment and states he has shortness of breath as well has no cardiac history besides congestive heart failure. Patient does appear pale and Emergency squad called today [facility] Narrative No data available for this section [facility] Discharge instructions No data available for this section [facility] data available for this section [facility] Summary Purpose Family History No Family [...] content) DATE CREATED AUTHOR 02/09/2019 [facility] DATE CREATED AUTHOR AUTHOR'S ORGANIZ ATION 03/28/[address] [facility] DATE CREATED AUTHOR AUTHOR'S ORGANIZ ATION 12/06/2024 [facility] DATE CREATED AUTHOR AUTHOR'S ORGANIZ ATION 03/09/2025 [facility] DATE CREATED AUTHOR AUTHOR'S ORGANIZ ATION 03/21/2025 [facility] Care Team (unrecognized sect ion and content) Community Associate Relationship Specialty Start Date End Date Van Youssef MD [address] [place] [facility] [place] [address] PCP - General Family Medicine 12/02/23 Community Associate Relationship Specialty Start Date End Date Van Youssef MD [address] [place] [facility] [address] PCP - General Family Medicine 12/02/23 Community Associate Relationship Specialty Start Date End Date Van Youssef MD [address] [place] [facility] [address] PCP - General Family Medicine 12/02/23 Community Associate Relationship Specialty Start Date End Date Van Youssef MD [address] [place] [facility] [address] PCP - General Family Medicine 12/02/23 Community Associate Relationship Specialty Start Date End Date Van Youssef MD [address] [place] [facility] [address] PCP - General Family Medicine 12/02/23 Community Associate Relationship Specialty Start Date End Date Van Youssef MD [address] [place] [facility] [place] [address] PCP - General Family Medicine 12/02/23 Community Associate Relationship Specialty Start Date End Date Van Youssef MD [address] [place] [facility] [address] PCP - General Family Medicine 12/02/23 Community Associate Relationship Specialty Start Date End Date Van Youssef MD [address] [place] [facility] [address] PCP - General Family Medicine 12/02/23 Community Associate Relationship Specialty Start Date End Date Van Youssef MD [address] [place] [facility] [place] [address] PCP - General Family Medicine 12/02/23 Community Associate Relationship Specialty Start Date End Date Van Youssef MD [address] [place] [facility] [address] PCP - General Family Medicine 12/02/23 Community Associate Relationship Specialty Start Date End Date Van Youssef MD [address] [place] [facility] [address] PCP - General Family Medicine 12/02/23 Community Associate Relationship Specialty Start Date End Date Van Youssef MD PCP - General Family Medicine 12/02/23 Community Associate Relationship Specialty Start Date End Date Van Youssef MD [address] [place] [address] PCP - General Family Medicine 12/02/23 Community Associate Relationship Specialty Start Date End Date Van Youssef MD [address] [place] [facility] [address] PCP - General Family Medicine 12/02/23 Reason [...] BE BASED ON THE PRIMARY CLINICAL RECORDS. [facility]. provides no warranty or guarantee of the accuracy or completeness of information in this document.
[2025-04-13 08:45] LABS: Anion Gap 17.7; BUN Creatinine Ratio 17.2; Calcium 8.9 mg/dL (8.5-10.1); Carbon Dioxide 26.8 mmol/L (21.0-32.0); Chloride 104 mmol/L (98-107); Estimated GFR (African America 44 (>=60 mL/min/1.73m^2); Estimated GFR (Non-African Ame 36 (>=60 mL/min/1.73m^2); Glucose 234 mg/dL (74-106); Potassium 4.5 mmol/L (3.5-5.1); Sodium 144 mmol/L (136-145)
== END 2025-04-13 07:26 | disposition home or self-care (01) ==
LOC: LAB 07:26
PROVIDERS: PCP Family Medicine; Visit Provider Family Medicine
DX: I50.30 Unspecified diastolic (congestive) heart failure (principal); Z13.228 Encounter for screening for other metabolic disorders
CPT/HCPCS: 36415; 80048; 83880

== ENCOUNTER 2025-05-08 15:41 | Outpatient (OUT) | payer MEDICARE, SELFPAY ==
[2025-05-08 16:04] LABS: Basophils Percent Auto 0.4 % (0.2-2.0); Eosinophils Absolute Auto 0.1 10^3/uL (0.0-0.7); Eosinophils Percent Auto 1.2 % (0.9-7.0); Immature Granulocytes Abs Auto 0.06 10^3/uL (0.00-0.03); Immature Granulocytes Pct Auto 0.7 % (0.0-0.5); Lymphocytes Absolute Auto 0.7 10^3/uL (1.2-3.8); Lymphocytes Percent Auto 8.6 % (20.5-60.0); Mean Corpuscular HGB Conc 31.3 g/dL (29.9-35.2); Mean Corpuscular Hemoglobin 26.2 pg (25.9-34.0); Mean Platelet Volume 10.2 fL (9.5-13.5); Monocytes Absolute Auto 0.9 10^3/uL (0.3-0.8); Monocytes Percent Auto 11.3 % (1.7-12.0); Neutrophils Absolute Auto 6.3 10^3/uL (1.4-6.5); Neutrophils Percent Auto 77.8 % (43.0-75.0); Platelet Count 299 10^3/uL (150-450); Red Blood Count 3.81 10^6/uL (4.70-6.10); White Blood Count 8.1 10^3/uL (4.0-11.0)
[2025-05-08 16:26] LABS: Alanine Aminotransferase 17 U/L (16-63); Albumin Globulin Ratio 0.7; Albumin Level 2.9 g/dL (3.4-5.0); Alkaline Phosphatase 92 U/L (46-116); Anion Gap 14.1; Aspartate Amino Transferase 14 U/L (15-37); Bilirubin Total 0.4 mg/dL (0.2-1.0); Calcium 9.2 mg/dL (8.5-10.1); Carbon Dioxide 27.8 mmol/L (21.0-32.0); Chloride 102 mmol/L (98-107); Estimated GFR (African America 44 (>=60 mL/min/1.73m^2); Estimated GFR (Non-African Ame 36 (>=60 mL/min/1.73m^2); Globulin 3.9 g/dL; Glucose 175 mg/dL (74-106); Potassium 4.9 mmol/L (3.5-5.1); Sodium 139 mmol/L (136-145); Total Protein 6.8 g/dL (6.4-8.2)
== END 2025-05-08 15:42 | disposition home or self-care (01) ==
LOC: LAB 15:49
PROVIDERS: PCP Family Medicine; Visit Provider Family Medicine
DX: I50.9 Heart failure, unspecified (principal); R60.9 Edema, unspecified; N18.30 Chronic kidney disease, stage 3 unspecified
CPT/HCPCS: 36415; 80053; 83880; 84484; 85025

== ENCOUNTER 2025-05-08 17:51 | Inpatient (IN) | payer MEDICARE, SELFPAY ==
--- OUTSIDE RECORDS SUMMARY | 2025-04-26 05:30 | XMS_ITS ---
Author Organization [facility] in [place] Address [address] [place] [address] Care Team Providers Care Platform Operations Director Name Role Phone Erik Sung Primary Care Provider REASON FOR VISIT injection Encounters Encounter Location Date Provider Diagnosis [facility] [address] [place] [address] 04/26/2025 Erik Sung Plan Of Treatment No Information Progress Notes * Anson HEREDIA LDOB:[birth year] (85 yo M)Acc No.[id number]:04/26/2025 UNLOCKED PROGRESS NOTE Progress Note Patient: Anson SANTILLAN Provider: Louise Sung MD (TTC) :1940 A ge:85 Y S ex:Male Date:04/26/2025 Address:[address] [place], [place] [id number] Subjective: * Chief Complaints: * 1 . Injection. * Medical History: Objective: * Vitals: Assessment: Plan: * Treatment: * * Electronic signature of Erik Sung MD, [id number] on 05/08/2025 at 02:46 PM EDT Sign off status: Pending Visit Status: C ANC (Cancelled) * Provider: Louise Sung MD (TTC) Date: 04/26/2025 Generated for Printi ng/Faxing/eTransmitting on: 05/08/2025 02:46 PM EDT
--- OUTSIDE RECORDS SUMMARY | 2025-04-26 05:30 | XMS_ITS ---
Author Organization [facility] [place] Address [address] [place] [address] Care Team Providers Care Sap Architect Name Role Phone Erik Sung Primary Care Provider REASON FOR VISIT injection Encounters Encounter Location Date Provider Diagnosis [facility] [address] [place] [address] 04/26/2025 Erik Sung Plan Of Treatment No Information Progress Notes * Anson HEREDIA LDOB:[birth year] (85 yo M)Acc No.[id number]:04/26/2025 UNLOCKED PROGRESS NOTE Progress Note Patient: Anson SANTILLAN Provider: Louise Sung MD (TTC) :1940 A ge:85 Y S ex:Male Date:04/26/2025 Address:[address] [place], [place] [id number] Subjective: * Chief Complaints: * 1 . Injection. * Medical History: Objective: * Vitals: Assessment: Plan: * Treatment: * * Electronic signature of Erik Sung MD, [id number] on 05/09/2025 at 06:08 AM EDT Sign off status: Pending Visit Status: C ANC (Cancelled) * Provider: Louise Sung MD (TTC) Date: 04/26/2025 Generated for Printi ng/Faxing/eTransmitting on: 05/09/2025 06:08 AM EDT
--- OUTSIDE RECORDS SUMMARY | 2025-04-30 15:00 | XMS_ITS | Encounter Summary ---
Author Organization [facility] Address [address] [place] [address] Care Team Providers Care Mold Stamper Name Role Phone Pj Sung MD Primary Care Provider [phone] Encounter Details Date Type Department Care Team (Late st Contact Info) Description 04/30/2025 3:00 PM EDT Office Visit [facility] [address] [place] [address] Mike Cisneros MD [address] [facility] [address] [facility] [place] [address] Nonrheumatic aortic valve stenosis (Primary Dx); Chronic diastolic congestive heart failure (CMS/HCC); Shortness of breath; Longstanding persistent atrial fibrillation (CMS/HCC); Pericardial effusion; Pulmonary hypertension (CMS/HCC); Coronary artery disease involving chickahom[place] indians-eastern division coronary artery of chickahom[place] indians[place]eastern division heart without angina pectoris; Primary hypertension; Stage 3b chronic kidney disease (CMS/HCC) Social History Tobacco Use Types Packs/Day Years Used Date Smoking Tobacco: Former Cigarettes Smokeless Tobacco: Never Alcohol Use Standard Drinks/Week Comments Not Currently 0 (1 standard drink = 0.6 oz pur e alcohol) PHQ-2 Answer Date Recorded Patient Health Questionnaire-2 Score 0 01/03/2025 PR Safety & Environment Answer Date Rec orded Fear of Current or Ex-Partner Not on file Emotionally Abused Not on file 01/06/2024 Physically Abused Not on file 01/06/2024 Sexually Abused Not on file 01/06/2024 Physically or Sexually Abused Not on file Sex and Gender Information Value Date Recorded Sex Assigned at Male 06/10/2023 8:02 PM EDT Legal Sex Male 10:17 PM EDT Gender Identity Male 06/10/2023 8:02 PM EDT Sexual Orientation Heterosexual or Straight 05/16 8:02 PM EDT documented as of this encounter Last Filed Vital Signs Vital Sign Reading Time Taken Comments Blood Pressure 184/88 04/30/2025 3:10 PM EDT Pulse 70 04/30/2025 3:10 PM EDT Temperature - - Respiratory Rate - - Oxygen Saturation 94% 04/30/2025 3:10 PM EDT Inhaled Oxygen Concentration - - Weight 79.8 kg (176 lb) 04/30/2025 3:10 PM EDT Height 185.4 cm (6' 1 ) 04/30/2025 3:10 PM EDT Body Mass Index 23.22 04/30/2025 3:10 PM EDT documented in this encounter Progress Notes * Mike Cisneros MD - 04/30/2025 3:00 PM EDT Images from the original note were not included. [facility] - [facility] Subjective Anson Beth is a 85 y.o. year old male patient being seen for follow up CVA. [facility] Patient complains of HERNANDEZ and leg swelling, high blood sugars. Patient is at the [facility] for rehab. Patient Active Problem List Diagnosis Aortic valve [...] Post-void dribbling Pulmonary heart disease, unspecified (CMS/HCC) Abnormal findings on diagnostic imaging of heart and coronary circulation Family History Problem Relation Name Age of Onset Coronary artery disease Father Social History Tobacco Use Smoking status: Former Types: Cigarettes Smokeless tobacco: Never Substance Use Topics Alcohol use: Not Currently Drug use: Never HPI Anson is seen in follow up. He is [...] diuretic therapy. He was admitted to the [facility] in August 2022 due to hyponatremia, hyperkalemia and acute kidney injury, leukocytosis secondary to COVID-19 causing dehydration. I saw him on 05/24/2023 and the office and he had significant evidence of volume overload by exam and echocardiogram. I intensified his diuretic regimen. He ended up getting admitted to the [facility] with acute heart failure exacerbation and underwent diuresis. I saw him on 07/21/2023. I proceeded with a transesophageal echocardiogram to further assess his aortic valve stenosis given his admission for decompensated heart failure to rule out more severe aorticvalve stenosis that what we are seeing on [...] On 02/14/2025 he was admitted to the [facility] with altered mental status. brain MRI showed multiple infarcts. He was seen by cardiology consult and Eliquis was changed to Xarelto. He then underwent a transesophageal echocardiogram that showed no evidence of intra cardiac thrombi. The aortic v alve stenosis appeared to be severe. He was seen in the emergency room at the [facility] on 03/08/2025 with chest pain episode. Heruled out for myocardial infarction and was discharged. I last saw him on 03/12/2025 and decided to proceed with cardiac catheterization as part of his workup for aortic valve replacement. The procedure is scheduled for May 10, 2025. However in the interim he was admitted on 04/14/2025 to [facility] with apparent acute cerebrovascular accident. MRI showed possible small acute/subacute infarct. The clinical presentation was that of inability to speak. Relatively quickly. He was discharged back to rehab at the [facility]. Today he is here to see me after that event. He has been doing reasonably well. No recurrence of neurologic symptoms. He continues to have similar symptoms of shortness of breath and leg swelling. Nochest pain. His blood pressure has been elevated and today Dr. Sung increase clonidine to 0.2 mg 3 times daily. Review of Systems Cardiovascular: Positive for dyspnea on exertion and leg swelling. Objective Visit Vitals BP (!) 184/88 (BP Location: Right arm, Patient Position: Sitting) Pulse 70 Ht 1.854 m (6' 1 ) Wt 79.8 kg (176 lb) SpO2 94% BMI 23.22 kg/m?? Smoking Status Former BSA 2.03 m?? Physical Exam Constitutional: Appearance: He is well-developed. [...] murmur is present with a grade of 4/6. No friction rub. No gallop. Pulmonary: Effort: [...] present. Left lower le+ Pitting Edema present. Comments: Uses a walker to assist with ambulation Skin: General: Skin is warm and dry. Neurological: General: No focal deficit present. Mental Status: He is alert and oriented to person, place, and time. Psychiatric: Mood and Affect: Mood normal. Behavior: Behavior is cooperative. Judgment: Judgment normal. Allergies Allergies Allergen Reactions Iodinated Contrast Media Nitroglycerin Twcxgzs-Lhq-Oaz Reductase Inhibitors Medications Current Outpatient Medications: ALPRAZolam (Xanax) 0.25 mg tablet, Take 1 tablet by mouth Twice daily at 6am and 6pm., Disp: , Rfl: aspirin 81 mg EC tablet, Take 1 tablet every day by oral route., Disp: , Rfl: b complex vitamins capsule, Take 1 capsule by mouth in the morning., Disp: , Rfl: cholecalciferol (Vitamin D3) 25 MCG (1000 units) tablet, Take 2,000 Units by mouth in the morning.,Disp: , Rfl: cloNIDine (Catapres) 0.1 mg tablet, Take 2 tablets by mouth three times daily., Disp: , Rfl: dicyclomine (Bentyl) 10 mg capsule, Take 20 mg by mouth., Disp: , Rfl: empagliflozin (Jardiance) 25 mg, Take 25 mg by mouth in the morning., Disp: , Rfl: ezetimibe (Zetia) 10 mg tablet, Take 1 tablet every day by oral route., Disp: , Rfl: furosemide (Lasix) 40 mg tablet, Take 2 tablets (80 mg) by mouth two times daily., Disp: 360 tablet, Rfl: 3 glimepiride (Amaryl) 4 mg tablet, Take 1 tablet by mouth in the morning and at bedtime., Disp: , Rfl: insulin lispro (HumaLOG) 100 unit/mL injection, Inject 100 Units under the skin with breakfast, with lunch, and with evening meal., Disp: , Rfl: labetalol (Normodyne) 300 mg tablet, Take 300 mg by mouth three times daily., Disp: , Rfl: linaGLIPtin (Tradjenta) 5 mg tablet, Take 5 mg by mouth in the morning., Disp: , Rfl: loratadine (Claritin Reditabs) 10 mg disintegrating tablet, Take 10 mg by mouth in the morning., Disp: , Rfl: magnesium oxide (Mag-Ox) 250 mg magnesium tablet, Take 250 mg by mouth., Disp: , Rfl: metFORMIN (Glucophage) 500 mg tablet, Take 500 mg by mouth with breakfast., Disp: , Rfl: omeprazole (PriLOSEC) [address] capsule, Take 40 mg by mouth before breakfast. Do not crush or chew., Disp: , Rfl: pioglitazone (Actos) 45 mg tablet, Take 1 tablet by mouth in the morning., Disp: , Rfl: potassium chloride CR (Klor-Con M20) 20 mEq ER tablet, Take 1 tablet every day by oral route for 90days., Disp: , Rfl: prednisoLONE acetate (Pred-Forte) 1 % ophthalmic suspension, INSTILL 1 DROP INTO RIGHT EYE 3 TIMES A DAY DIRECTED, Disp: , Rfl: primidone (Mysoline) 50 mg tablet, Take 2 tablets by mouth in the morning and at bedtime., Disp: , Rfl: rivaroxaban (Xarelto) 15 mg tablet, Take 15 mg by mouth daily with evening meal. Take with food., Disp: , Rfl: SITagliptin phosphate (Januvia) 50 mg tablet, Take 100 mg by mouth in the morning., Disp: , Rfl: spironolactone (Aldactone) 50 mg tablet, Take 50 mg by mouth in the morning., Disp: , Rfl: tamsulosin (Flomax) 0.4 mg 24 hr capsule, Take 1 capsule every day by oral route for 90 days., Disp: , Rfl: tiotropium (Spiriva Respimat) 1.25 mcg/actuation inhaler, Inhale 2 puffs every day by inhalation route., Disp: , Rfl: acyclovir (Zovirax) 400 mg tablet, Take 1 tablet twice a day by oral route for 30 days. (Patient not taking: Reported on 04/30/2025), Disp: , Rfl: Align 4 mg capsule, TAKE 1 CAPSULE BY MOUTH DAILY AFTER COMPLETING THE ANTIBIOTICS COURSE (Patient not taking: Reported on 04/30/2025), Disp: , Rfl: cholecalciferol (Vitamin D3) 25 MCG (1000 UT) capsule, Take 5 capsules (125 mcg) by mouth in the morning. (Patient not taking: Reported on 04/30/2025), Disp: 150 capsule, Rfl: 11 ferrous sulfate 325 (65 Fe) MG tablet, Take 65 mg by mouth with breakfast. (Patient not taking: Reported on 04/30/2025), Disp: , Rfl: metoclopramide (Reglan) 5 mg tablet, Take 5 mg by mouth once daily as directed. bedtime (Patient not taking: Reported on 04/30/2025), Disp: , Rfl: Recent Labs No visits with results within 6 Month(s) from this visit. Latest known visit with results is: Documentation on 06/27/2024 Component Date Value External Fasting Glucose 06/19/2024 226 External Creatinine, Ser* 06/19/2024 1.62 External BUN 06/19/2024 32.0 External Potassium 06/19/2024 4.1 External Sodium, serum 06/19/2024 145 External CO2, total 06/19/2024 29.8 External Chloride 06/19/2024 107 External Calcium 06/19/2024 9.2 External Albumin 06/19/2024 3.4 External Phosphorus 06/16/2024 3.9 External Magnesium 06/16/2024 2.1 Blood testing 06/08/2022: Potassium 4.7, BUN 25, creatinine 1.7. EGFR 39. Blood testing 07/22/2022: Hemoglobin 14.2, platelets 175, potassium 4.0, BUN 36, creatinine 1.28, EGFR 54. Blood testing 08/30/2023: Hemoglobin 14.7, platelets 193, potassium 4.3, BUN 24, creatinine 1.62. Blood testing 10/29/2023: Potassium 4.0, BUN 32, creatinine 1.6, EGFR 41, hemoglobin 15.8. Blood testing 04/03/2024: Potassium 4.3, BUN 32, creatinine 1.68, EGFR 39. Blood testing 05/23/2024: Hemoglobin 15, potassium 4.0, BUN 24, creatinine 1.51, EGFR 44. Blood testing 11/10/2024: Potassium 5.0, BUN 21, creatinine 1.65, EGFR 40. Blood testing 03/08/2025: Hemoglobin 10.4, platelets 255, potassium 4.6, BUN 24, creatinine 1.79, EGFR 36, high-sensitivity troponin 13.2, NT proBNP 2783. Blood testing 04/18/2025: Hemoglobin 10.6, platelets 234, BUN 35, creatinine 1.6, EGFR 42, potassium 4.3. Lipid panel 04/15/2025: Cholesterol 210, triglycerides 44, HDL 88, LDL 107. High-sensitivity troponin 04/15/2025: 62. Imaging and other tests Echocardiogram 04/14/2025: Moderate left ventricular hypertrophy, ejection fraction 65 to 70%. Right ventricle appears to be dilated and dysfunctional. Aortic valve appears to be sclerotic, calcified with reduced opening, not well-seen. Mean gradient 23 mmHg, peak gradient 40 mmHg. Moderate to severe tricuspid regurgitation.RVSP 88 mmHg. Circumferential moderate pericardial effusion. MRI brain 04/16/2025: Probable T2 shine through and/or minimal acute/subacute ischemic lacunar infarcts as noted. ECG 04/14/2025: Atrial fibrillation, moderate interventricular conduction delay, moderate ST depression. Abnormal ECG. ECG 03/08/2025: Atrial fibrillation with aberrant conduction or ventricular premature complexes. Cannot rule out anterior myocardial infarction, probably old. Minimal ST depression probably digitalis effect. Chest x-ray 03/08/2025: No consolidation, small right pleural effusion, no pulmonary edema, left pleural effusion or pneumothorax. Impression: Right pleural effusion. Transesophageal echocardiogram 02/28/2025: Left Ventricle: The left ventricle is normal size. Global left ventricular systolic function is hyperdynamic. The EF is 70 % visually. Left ventricular wall thickness is severely increased. Right Ventricle: The right ventricle appears normal in size. Right ventricular systolic function appears normal. Left Atrium: The left atrium is severely enlarged. IAS: Agitated saline injections suggest a PFO(with Valsalva). Mitral Valve: Mild mitral regurgitation. Aortic [...] Pericardium: There is a small pericardial effusion. Echocardiogram 02/14/2025: CONCLUSION: Moderate to severe concentric left ventricular [...] evidence of tamponade Moderate mitral annulus calcification Echocardiogram 10/18/2024: Moderate to severe concentric left ventricular hypertrophy with normal systolic function. LVEF is estimated at 55 to 60%. Mildly dilated right ventricle with normal systolicfunction. Severe biatrial dilatation. Moderate aortic valve stenosis. The aortic valve appears heavily calcified. Mild aortic, mitral, tricuspid and pulmonic regurgitation. Severely elevated right-sided pressures. RVSP is 64 mmHg. Moderate circumferential pericardial effusion without echocardiographic signs of tamponade. ECG 09/08/2024: Atrial fibrillation with aberrant conduction, or ventricular premature complexes. Septal myocardial infarction, probably old. Lateral myocardial infarction, probably old. Indeterminate axis. Echocardiogram 03/13/2024: CONCLUSION: 1. Global left ventricular systolic function is hyperdynamic; visually estimated ejection fraction is 65 to 70% 2. The right ventricle is moderately dilated with normal systolic function 3. Diastolic dysfunction 4. Severe biatrial enlargement 5. Mildly increased left ventricular wall thickness 6. Moderate tricuspid regurgitation 7. Severely elevated right ventricular systolic pressure; RVSP 75 mmHg 8. Mild to moderate mitral regurgitation 9. Mild to moderate aortic valve stenosis; mild aortic regurgitation 10. Mild pulmonic regurgitation 11. Moderate circumferential pericardial effusion with no obvious signs of tamponade by 2D imaging Echocardiogram 02/17/2024: Normal left ventricular systolic function. LVEF is 55 to 60%. Moderately dilated right ventricle with normal systolic function. Severe biatrial dilatation. Moderate aortic valve stenosis. Mild mitral regurgitation. Mild to moderate tricuspid regurgitation. Severely elevatedright-sided pressures. RVSP is 80 mmHg. Moderate circumferential pericardial effusion. Transesophageal echocardiogram 08/31/2023: Left Ventricle: Global left ventricular systolic function is hyperdynamic. EF range is estimated at 65 % -70 %. No regional wall motion abnormality. Right Ventricle: The right ventricle appears normal in size. Normal right ventricular systolic function. Doppler studies suggest severely elevated right sided pressures. Left Atrium: The left atrium is severely enlarged. Right Atrium: The right atrium is severely enlarged. Mitral Valve: Moderate mitral regurgitation. Aortic Valve: The aortic valve is heavily calcified with reduced mobility. Mild aortic valve regurgitation. Moderate to severe aortic stenosis. Aortic Valve Measurements AV PGmean: 30.00 mmHg. MELY D (continuity eq. Vmax): 0.9 cm??. AV Vmax, Caliper: 3.41 m/s. AV DVI: 0.30. Tricuspid Valve: Moderate tricuspid regurgitation. Aorta: Severe atherosclerotic plaque is seen in the aorta. Great Vessels: IVC: The IVC is dilated. Pericardium: There is a moderate to large pericardial effusion. A pleural effusion is seen. LV stroke-volume index 34 mL/m??. Echocardiogram 05/19/2023: Global systolic function is normal. EF 55 to 60%, RV moderately dilated with normal systolic function. Severe biatrial enlargement. Moderate tricuspid regurgitation. Severelyelevated RVSP at 74 mmHg. Mild mitral regurgitation. Moderate aortic valve stenosis. Small to moderate circumferential pericardial effusion is seen. No echocardiographic evidence of chamber compression. Echocardiogram 07/01/2022: Global LV systolic function is hyperdynamic, EF 70 to 75%, no wall motionabnormalities, severe biatrial enlargement, the right ventricle is moderately dilated with normal systolic function, moderate tricuspid regurgitation, moderately elevated right-sided pressures, mild mitral regurgitation, moderate aortic valve stenosis, mild aortic regurgitation, the aortic sinuses are mildly enlarged, mild pulmonary regurgitation, there is a small anterior and moderate posterior pericardial effusion. Clot formation noted in the effusion. No 2D echo evidence of chamber compression is seen. Echocardiogram 01/08/2022: Normal LV systolic function, LVEF 60-65%, mild to moderate dilatation of the right ventricle with preserved ventricular function. Moderate to severe aortic stenosis. Low-flow low gradient is noted. Mean gradient 13 mmHg, LV stroke-volume index 30 mL/m??, MELY 1.0 cm??, DVI 0.3. Mild aortic regurgitation. Mild mitral regurgitation. Mild to moderate tricuspid regurgitation.Moderately elevated right-sided pressures. RVSP 58 mmHg. Small mostly posterior pericardial effusion. Blood testing 12/17/2021: Potassium 4.3, BUN 23, creatinine 1.56, EGFR 43, magnesium 2.3. Prior testing: [facility] 03/04/2021: BUN 30, creatinine 1.77. Potassium 4.7. Echocardiogram 06/10/2021: Normal ventricular systolic function, moderate aortic valve stenosis, moderately elevated right-sided pressures, moderate to severe atrial dilatation, small pericardial effusion. RVSP 58 mmHg. Echocardiogram 12/24/2020: LV systolic function is normal, ejection fraction 55- 60%. No wall motion abnormalities. Biatrial enlargement. Right ventricle appears enlarged with normal systolic function. Mildly elevated right-sided pressures. Mild mitral regurgitation. Mild aortic stenosis. Mild pulmonic regurgitation. Trivial effusion versus fat pad. BMP 10/22/2020: BUN 25, creatinine 1.84, potassium 4.5. Echocardiogram 06/19/2020: Normal size left ventricle. Global left ventricular systolic function is hyperdynamic. The EF is 65% visually. Left ventricular wall thickness is mildly increased. No regional wall motion abnormality. The right ventricle appears enlarged. Normal right ventricular systolic function. Doppler studies suggest moderately elevated right sided pressures (elevated pulmonary pressure). RVSP 57 mmHg. The left atrium is severely enlarged. The right atrium is severely enlarged. Mild mitral regurgitation. Mild aortic valve regurgitation. Moderate aortic valve stenosis. Mild tricuspid regurgitation. Moderate pulmonary regurgitation. Moderate aortic dilatation . There is a small to moderate pericardial effusion. BMP 05/01/2020: BUN 25, creatinine 1.62, potassium 4.7. BMP 11/29/2019: BUN 26, creatinine 1.81, potassium 4.2. BMP 09/18/2019: BUN 24, Cr 1.86. K 4.3. Echocardiogram 09/28/2019: Global left ventricular systolic function is normal (Visually estimated EF 60-65%). No regional wall motion abnormality. Right ventricular systolic function appears reduced. Mild tricuspid regurgitation. Doppler studies suggest moderately elevated right sided pressures (elevated pulmonary pressure). There is a small to moderate posterior pericardial effusion. The pericardial effusion is fibrinous. Limited study was performed to assess right sided heart pressures and for pericardial effusion. Echocardiogram 08/29/2019: Global left ventricular systolic function is normal (Visually estimated EF 65%). No regional wall motion abnormality. Normal right ventricular systolic function. The right ventricle is moderately enlarged. Severe atrial enlargement. Mild mitral regurgitation. Moderate aortic valve stenosis. Pulmonary artery pressure severely increased. RVSP is 82 mmHg. There is a moderate pericardial effusion. Pericardial effusion adjacent to the posterior LV. The peak instantaneous tranvalvular aortic gradient = 42 mmHg with a mean gradient = 18 mmHg and aortic valve area = 1.3 to 1.4 cm2 by continuity equation. The dimensionless index = 0.33 (less than 0.25 is consistent with severe aortic stenosis.) Compared to the prior echocardiogram from 01/26/17 aortic stenosis is more severe. A posterior pericardial effusion is now present. The largest dimension of the effusion in diastole = 17 mm. There is no evidence of hemodynamic compromise. ECHO in November 2018: 1. Normal biventricular systolic function. 2. Severe biatrial dilatation. 3. Severe pulmonary hypertension. RVSP 74 mmHg. 4. Moderate aortic stenosis. 5. Mild to moderate aortic, mitral and tricuspid regurgitation. 6. Small anterior pericardial effusion. Echo 03/2018: Normal left ventricular function Severe bi-atrial enlargement Mildly enlarged right ventricle Moderate tricuspid regurgitation with moderate pulmonary hypertension Calcified aortic valvewith moderate stenosis and mild to moderate regurgitation He underwent MARK guided cardioversion on 01/12/2017. ECG 01/29/2017 showed sinus bradycardia at 55 bpm. Cr was 1.62 on 01/01/2017. Echocardiogram on 01/26/2017: Global left ventricular systolic function is normal (Visually estimated EF 60%). Left ventricular wall thickness is mildly increased. Concentric left ventricular hypertrophy. No regional wall motion abnormality. Grade 2, moderate diastolic dysfunction (pseudonormalized LV filling pattern). Normal right ventricular systolic function. The right ventricle is mildly enlarged. Severe biatrial enlargement. Mild mitral regurgitation. Mild to moderate aortic valve stenosis. Mild aortic valve regurgitation. Doppler studies suggest mildly elevated right sided pressures. Blood testing in 12/2015: Cr 1.57, BUN 31. Echocardiogram 10/16/2014 showed: Global left ventricular systolic function is normal, no segmental wall motion abnormalities (EF 61 %) Grade 2, moderate diastolic dysfunction (pseudonormalized LV filling pattern) Mild left ventricular hypertrophy Normal right ventricular systolic function Doppler studies suggest moderately elevated right sided pressures (elevated pulmonary pressure) The left atrium is severely enlarged The right atrium is moderately enlarged There is a minimal pericardal effusion Moderate aortic valve stenosis His ultrasound of the renals 11/14/2013 showed evidence of elevated velocities and RAR in the rightkidney. Lexiscan stress test January 2014 showed no evidence of ischemia. There was a mild fixed inferior wall perfusion defect vs. artifact. His EF was 57%. Catheterization on 01/08/2015 showed: 1. Coronary artery disease with mild involvement of the left main, ramus and right coronary artery. 2. A 40% right renal artery stenosis. 3. A 95% left renal artery stenosis. 4. Heavy calcifications and mild atherosclerosis in the distal abdominal Assessment/Plan Diagnoses and all orders for this visit: Nonrheumatic aortic valve stenosis Chronic diastolic congestive heart failure (CMS/HCC) Shortness of breath Longstanding persistent atrial fibrillation (CMS/HCC) Pericardial effusion Pulmonary hypertension (CMS/HCC) Coronary artery disease involving chick[place]om[place] indians-eastern division coronary artery of chick[place]om[place] indians-eastern division heart without angina pectoris Primary hypertension Stage 3b chronic kidney disease (CMS/HCC) I reviewed all the documentation from the recent admission to [facility] with cerebrovascular accident. It appears that the cardiac MRI raised the possibility of acute/subacute lacunar infarct. He recovered clinically. He continues to be at the [facility] for rehab. I will continue current medications including aspirin and Xarelto. Nonrheumatic aortic valve stenosis: I had reviewed the transesophageal echocardiogram that was performed on 02/28/2025. It shows normal ventricular systolic function. The aortic valve is heavily calcified and has severely reduced mobility. I agree that the stenosis seems to be severe. I think that th is is symptomatic. I again discussed the with him and his family members and reviewed the images from the transesophageal echocardiogram with them. I think we need additional information and evaluation of his symptoms and his aortic valve stenosis. I am going to proceed with cardiac catheterizationas planned [right and left heart catheterization, aortic valve study, coronary angiography]. Hypertension: Blood pressure elevated. Clonidine was just increased to 3 times daily. I asked that blood pressure monitoring at the [facility] be forwarded to me to make additional decisions regarding adjusting blood pressure medications. Longstanding persistent atrial fibrillation: on anticoagulation. 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 Transesophageal echocardiogram did not show evidence of ventricular cardiac thrombi. He just had another neurological event and cerebrovascular accident. I discussed with him the option of left atrial appendage occlusion procedure given no good response to anticoagulation therapy. This might be performed in addition to anticoagulation therapy. Chronic diastolic heart failure: Continue current diuretic therapy. I think a lot of his diastolic heart failure is contributed for by his aortic valve stenosis. I am proceeding with cardiac catheterization. Pericardial effusion: This was present previously but continues to be present on the most recent echo and is mild to moderate in size. I will see him in follow-up after the heart catheterization procedure. He needs to stop Xarelto 2 days prior to the procedure. No follow-ups on file. Mike Cisneros MD documented in this encounter Plan of Treatment Upcoming Encounters Date Type Department Care Team (Late st Contact Info) Description 05/10/2025 8:30 AM EDT Hospital Encounter [facility] [address] [place] [phone] Mike Cisneros MD [address] [place] [phone] Nonrheumatic aortic valve stenosis; Chronic diastolic congestive heart failure (CMS/HCC); Shortness of breath; Abnormal findings on diagnostic imaging of heart and coronary circulation 05/10/2025 10:30 AM EDT - 05/10/2025 11:30 AM EDT Surgery [facility] [address] [place] [phone] Mike Cisneros MD [address] [place] [address] Coronary angiography [20674 (CPT )] 07/11/2025 1:30 PM EDT Follow-Up [facility] [address] [place] [id number] Jeff Hutton MD [address] [place] [id number] documented as of this encounter Visit Diagnoses Diagnosis Abnormal findings on diagnostic imaging of heart and coronary circulation- Primary Nonrheumatic aortic valve stenosis Chronic diastolic congestive heart failure (CMS/HCC) Shortness of breath Aortic valve stenosis Aortic valve disorders Congestive heart failure (CMS/HCC) Congestive heart failure, unspecified Dyspnea Other dyspnea and respiratory abnormality Nonrheumatic aortic valve stenosis- Primary Chronic diastolic congestive heart failure (CMS/HCC) Shortness of breath Longstanding persistent atrial fibrillation (CMS/HCC) Pericardial effusion Unspecified disease of pericardium Pulmonary hypertension (CMS/HCC) Other chronic pulmonary heart diseases Coronary artery disease involving [place] coronary artery of [place] heart without angina pectoris Primary hypertension Unspecified essential hypertension Stage 3b chronic kidney disease (CMS/HCC) Nonrheumatic aortic valve stenosis Chronic diastolic congestive heart failure (CMS/HCC) Shortness of breath Abnormal findings on diagnostic imaging of heart and coronary circulation documented in this encounter Care Teams Mold Stamper Relationship Specialty Start Date End Date Pj Sung MD [address] [place] [address] PCP - General 07/17/22 documented as of this encounter
--- OUTSIDE RECORDS SUMMARY | 2025-04-30 15:00 | XMS_ITS | Encounter Summary ---
Author Organization [facility] Address [address] [place] [address] Care Team Providers Care Manager Tax Name Role Phone Pj Sung MD Primary Care Provider [phone] Encounter Details Date Type Department Care Team (Late st Contact Info) Description 04/30/2025 3:00 PM EDT Office Visit [facility] [address] [place] [address] Mike Cisneros MD [address] [facility] [address] [facility] [place] [address] Nonrheumatic aortic valve stenosis (Primary Dx); Chronic diastolic congestive heart failure (CMS/HCC); Shortness of breath; Longstanding persistent atrial fibrillation (CMS/HCC); Pericardial effusion; Pulmonary hypertension (CMS/HCC); Coronary artery disease involving [place] coronary artery of [place] heart without angina pectoris; Primary hypertension; Stage 3b chronic kidney disease (CMS/HCC) Social History Tobacco Use Types Packs/Day Years Used Date Smoking Tobacco: Former Cigarettes Smokeless Tobacco: Never Alcohol Use Standard Drinks/Week Comments Not Currently 0 (1 standard drink = 0.6 oz pur e alcohol) PHQ-2 Answer Date Recorded Patient Health Questionnaire-2 Score 0 01/03/2025 [place] Safety & Environment Answer Date Rec orded [...] from the original note were not included. [place] [facility] Subjective Anson Beth is a 85 y.o. year old male patient being seen for follow up CVA. [facility] Patient complains of HERNANDEZ and leg swelling, high blood sugars. Patient is at the [facility] for rehab. Patient Active Problem List Diagnosis [...] diuretic therapy. He was admitted to the [facility] in August 2022 due to hyponatremia, hyperkalemia and acute kidney injury, leukocytosis secondary to COVID-19 causing dehydration. I saw him on 05/24/2023 and the office and he had significant evidence of volume overload by exam and echocardiogram. I intensified his diuretic regimen. He ended up getting admitted to the [facility] with acute heart failure exacerbation and [...] On 02/14/2025 he was admitted to the [facility] with altered mental status. brain MRI showed multiple infarcts. He was seen by cardiology consult and Eliquis was changed to Xarelto. He then underwent a transesophageal echocardiogram that showed no evidence of intra cardiac thrombi. The aortic v alve stenosis appeared to be severe. He was seen in the emergency room at the [facility] on 03/08/2025 with chest pain episode. Heruled out for myocardial infarction and was discharged. I last saw him on 03/12/2025 and decided to proceed with cardiac catheterization as part of his workup for aortic valve replacement. The procedure is scheduled for May 10, 2025. However in the interim he was admitted on 04/14/2025 to [facility] with apparent acute cerebrovascular accident. MRI showed possible small acute/subacute infarct. The clinical presentation was that of inability to speak. Relatively quickly. He was discharged back to rehab at the [facility]. Today he is here to see me [...] Allergies Allergen Reactions Iodinated Contrast Media Nitroglycerin Gvruotm-Azf-Qcl Reductase Inhibitors Medications Current Outpatient Medications: ALPRAZolam [...] 1.56, EGFR 43, magnesium 2.3. Prior testing: [facility] 03/04/2021: BUN 30, creatinine 1.77. Potassium 4.7. [...] Pulmonary hypertension (CMS/HCC) Coronary artery disease involving [place] coronary artery of [place] heart without angina pectoris Primary hypertension Stage 3b chronic kidney disease (CMS/HCC) I reviewed all the documentation from the recent admission to [facility] with cerebrovascular accident. It appears that the cardiac MRI raised the possibility of acute/subacute lacunar infarct. He recovered clinically. He continues to be at the [facility] for rehab. I will continue current medications [...] asked that blood pressure monitoring at the [facility] be forwarded to me to make additional [...] Description 05/10/2025 8:30 AM EDT Hospital Encounter [facility] [address] [place] [phone] Mike Cisneros MD [address] [facility] [place] [phone] Nonrheumatic aortic valve stenosis; Chronic diastolic congestive heart failure (CMS/HCC); Shortness of breath; Abnormal findings on diagnostic imaging of heart and coronary circulation 05/10/2025 10:30 AM EDT - 05/10/2025 11:30 AM EDT Surgery [facility] [address] [place] [phone] Mike Cisneros MD [address] [place] [address] Coronary angiography [44825 (CPT )] 07/11/2025 1:30 PM EDT Follow-Up [facility] [address] [place] [phone] Jeff Hutton MD [address] [place] [phone] documented as of this encounter Visit Diagnoses [...] pulmonary heart diseases Coronary artery disease involving [place] coronary artery of [place] heart without angina pectoris Primary hypertension Unspecified essential hypertension Stage 3b chronic kidney disease (CMS/HCC) Nonrheumatic aortic valve stenosis Chronic diastolic congestive heart failure (CMS/HCC) Shortness of breath Abnormal findings on diagnostic imaging of heart and coronary circulation documented in this encounter Care Teams Manager Tax Relationship Specialty Start Date End Date Pj Sung MD [address] [place] [address] PCP - General 07/17/22 documented as of this encounter
[2025-05-08] VITALS (35 sets, daily range): BP systolic 135–198; BP diastolic 58–105; PULSE 66–89; TEMP 37; O2SAT 88–95; BMI 25.4
--- OUTSIDE RECORDS SUMMARY | 2025-05-08 09:45 | XMS_ITS ---
Author Organization The [facility] in [place] Address [address] [place] [address] Care Team Providers Care Training Intern Name Role Phone Erik Sung Primary Care Provider REASON FOR VISIT Orders Encounters Encounter Location Date Provider Diagnosis [facility] [address] [place] [address] 05/08/2025 Erik Sung CHF (congestive hear t failure) I50.9 ; Edema R60.9 ; Chronic kidney disease, stage 3 unspecified N18.30 and Urinary obstruction N13.9 Assessments Encounter Date Diagnosis (ICD Code) Assessment Notes Treatment Notes Treatment Clinical Notes Section Notes 05/08/2025 CHF (congestive heart failure) (ICD-10 - I50.9) 05/08/2025 Edema (ICD-10 - R60.9) 05/08/2025 Chronic kidney disease, stage 3 unspecified (ICD-10 - N18.30) 05/08/2025 Urinary obstruction (ICD-10 - N13.9) Plan Of Treatment Pending Test Test Name Order Date UA (URINALYSIS, COMPLETE) 05/08/2025 Troponin 05/08/2025 CMP - Comprehensive Metabolic Panel 04/16 CBC W/AUTO DIFF 05/08/2025 BNP 05/08/2025 CULTURE SPUTUM 05/08/2025 Progress Notes * Anson HEREDIA LDOB:[birth year] (85 yo M)Acc No.[id number]:05/08/2025 Patient: Anson SANTILALN :1940 A ge:85 Y S ex:Male Address:[address] [place] [address], [phone] Subjective: * Chief Complaints: * O rders * Medical History: * Surgical History: * Hospitalization/Major Diagno stic Procedure: * Medications: Objective: * Vitals: * Physical Examination: Assessment: * Assessment: 1. C HF (congestive heart failure) - I50.9 2 . E fernanda - R60.9 ?3. C hronic kidney disease, stage 3 unspecified - N18.30 4 . U rinary obstruction - N13.9 Plan: * Treatment: 2. E fernanda L AB: Troponin L AB: CMP - Comprehensive Metabolic Panel L AB: CBC W/AUTO DIFF L AB: BNP 3. C hronic kidney disease, stage 3 unspecified L AB: Troponin L AB: CMP - Comprehensive Metabolic Panel L AB: CBC W/AUTO DIFF L AB: BNP 4. U rinary obstruction L AB: UA (URINALYSIS, COMPLETE) L AB: CULTURE SPUTUM * Procedure Codes: * true * Date: Generated for Nabeel lagunas/Arik/eTransmitting on: 0 05/08/2025 02:46 PM EDT
--- OUTSIDE RECORDS SUMMARY | 2025-05-08 09:45 | XMS_ITS ---
Author Organization The [facility] in [place] Address [address] [place] [address] Care Team Providers Care Facilities Maintenance Manager Name Role Phone Erik Sung Primary Care Provider Results Component Value Reference Range Notes BNP (Not yet reviewed by pro vider) Interpretation: Performing Lab: Notes/Report: [facility] , NT Pro B Type Natriuretic Pept 6396.0 <=1800.0 p g/mL RESULTS CALLED TO MARIA LUZ CHAPMAN Performing Lab: see note ML - [facility] REASON FOR VISIT Orders Encounters Encounter Location Date Provider Diagnosis [facility] [address] [place] [address] 05/08/2025 Erik Sung CHF (congestive hear t [...] * Anson HEREDIA LDOB:[birth year] (85 yo M)Acc No.[id number]:05/08/2025 Patient: Anson SANTILLAN :1940 A ge:85 Y S ex:Male Address:[address] [place] [address], [phone] Subjective: * Chief Complaints: * O rders [...] * true * Date: Generated for Nabeel lagunas/Arik/eTcliffsmitting on: 0 05/09/2025 06:07 AM EDT
--- OUTSIDE RECORDS SUMMARY | 2025-05-08 12:33 | XMS_ITS ---
Author Organization The [facility] in [place] Address [address] [place] [address] Care Team Providers Care Education Administrator Name Role Phone Erik Sung Primary Care Provider [phone] REASON FOR VISIT CRITICAL LAB- Sent to ER Encounters Encounter Location Date Provider Diagnosis [facility] [address] [place] [address] 05/08/2025 Erik Sung Plan Of Treatment No Information Progress Notes * YANBunnyAnson LDOB:[birth year] (85 yo M)Acc No.[id number]:05/08/2025 Patient: Anson SANTILLAN :1940 A ge:85 Y S ex:Male Address:[address] [place] [address], [phone] * true * Date: Generated for Gunnari janneth/Falandong/eTransmitting on: 0 05/08/2025 05:58 PM EDT
--- OUTSIDE RECORDS SUMMARY | 2025-05-08 12:33 | XMS_ITS ---
Author Organization The [facility] in [place] Address [address] [place] [address] Care Team Providers Care In Flight Refueling Operator Name Role Phone Erik Sung Primary Care Provider REASON FOR VISIT CRITICAL LAB- Sent to ER Encounters Encounter Location Date Provider Diagnosis [facility] [address] [place] [address] 05/08/2025 Erik Sung Plan Of Treatment No Information Progress Notes * YAN Anson LDOB:[birth year] (85 yo M)Acc No.[id number]:05/08/2025 Patient: Anson SANTILLAN :1940 A ge:85 Y S ex:Male Address:[address] [place] [address], [phone] * true * Date: Generated for Nabeel lagunas/Arik/eTransmitting on: 0 05/09/2025 06:08 AM EDT
--- OUTSIDE RECORDS SUMMARY | 2025-05-08 14:00 | XMS_ITS | Encounter Summary ---
Author Organization [facility] Address [address] [place] [address] Care Team Providers Care Machine Brusher Name Role Phone Pj Sugn MD Primary Care Provider [phone] Encounter Details Date Type Department Care Team (Late st Contact Info) Description 05/08/2025 2:00 PM EDT Office Visit [facility] [address] [facility] [address] [place] [address] Winnie Herron, FORESTRY CONSERVATION WORKER [address], [facility] [address] [place] [address] Benign essential tremor (Primary Dx); Neurogenic pain; Sequelae of cerebral infarction; Cervical paraspinal muscle spasm; JOSIAH (obstructive sleep apnea); Carotid stenosis, bilateral; Polyneuropathy Social History Tobacco Use Types Packs/Day Years [...] - Inhaled Oxygen Concentration - - Weight 83.9 kg (185 lb) 05/08/2025 4:32 PM EDT Height 182.9 cm (6') 05/08/2025 4:32 PM EDT Body Mass Index 25.09 05/08/2025 4:32 PM EDT documented in this encounter Progress Notes * Winnie Herron NP - 05/08/2025 2:00 PM EDTAssociated Problem(s): Benign essential tremor (Continue current regimen.) Primidone was decreased * Winnie Herron NP - 05/08/2025 2:00 PM EDTAssociated Problem(s): Neurogenic pain (Continue current regimen.) OFF dulox * Winnie Herron NP - 05/08/2025 2:00 PM EDTAssociated Problem(s): Sequelae of cerebral infarction (Continue ASA, Xeralto - was on eliquis, statin.) * Winnie Herron NP - 05/08/2025 2:00 PM EDTAssociated Problem(s): Cervical paraspinal muscle spasm (In SNF post stroke) * Winnie Herron NP - 05/08/2025 2:00 PM EDTAssociated Problem(s): JOSIAH (obstructive sleep apnea) Family will bring CPAP to SNF. Has been noncompliant at home May benefit from re titration study Managed by Dr John in [place] * Winnie Herron NP - 05/08/2025 2:00 PM EDTAssociated Problem(s): Carotid stenosis, bilateral Plan redo US carotids 2026. * Winnie Herron NP - 05/08/2025 2:00 PM EDTAssociated Problem(s): Polyneuropathy (Continue current regimen.) * Winnie Herron NP - 05/08/2025 2:00 PM EDT Images from the original note were not included. Outpatient Progress Note Prev Appt: Visit date not found No chief complaint on file. Appointment Note -- FU ([facility] Patient is here today for post stroke hospital FU > 60 minutes spent with the patient and his family. Assessment and Plan - Assessment & Plan Benign essential tremor (Continue current regimen.) Primidone was decreased Neurogenic pain (Continue current regimen.) OFF dulox Sequelae of cerebral infarction (Continue ASA, Xeralto - was on eliquis, statin.) Cervical paraspinal muscle spasm (In SNF post stroke) JOSIAH (obstructive sleep apnea) Family will bring CPAP to SNF. Has been noncompliant at home May benefit from re titration study Managed by Dr John in [place] Carotid stenosis, bilateral Plan redo US carotids 2026. Polyneuropathy (Continue current regimen.) No orders of the defined types were placed in this encounter. Follow-Up - No follow-ups on file. History of Present Illness, Associated Treatments and Results - Dx (JOSIAH) Tx OFF BiPAP @ 31/10 AEs Hx [facility] Failed Semeiology Circadian Noct oxim PSG _ ([place]) - _ PAPT ([place]) - AHI=8.1 @ 31/10 (max pressure) MSLT MWT Imaging Testing Surgery Dx TREMOR Tx PRM 100 BID ( dec) (+ labetalol --card) AEs Hx Sx reasonably controlled on higher dose. Onset Semeiology Tremor R>>L hand, often at rest. Handwriting messy, smaller. Imaging Testing Surgery Failed Sinemet 25/100 bid (ineff) Dx PN . PAIN . (B12) . B6 Tx OFF dulox 20 B complex (for B6) (B12 [...] UBOs Tx ASA AEs Hx Recent adm Alberto for confusion. Now baseline. Images rev'd. No clear cognitive decline. Denies forgetting names, leaving tools/stove on, getting lost, etc. Onset Semeiology Imaging MR brain (02/2025, ) - rev'd with pt - no report sent - on my review, atrophy mod-sev, 8-10 UBOs, most tiny, 2 mod incl R fro & R splenium CC MRA head (02/2025, ) - no stenoses MRA neck (02/2025, ) - no stenoses, dom R vert US carotids (02/2025, ) - < 50% B by velocity, but mod plaque poss causing stenosis Testing Surgery Failed Dx L BASAL GANGLIA STROKE/WMD/ATROPHY Tx (Continue ASA, Xeralto ?, statin.) AEs Hx Onset [address]85[address] AMS and garbled speech Semeiology To [facility]. CT and MRI showed stroke ? Subacute. Eliquis changed to Xeralto. DC to [place] for Skilled therapy. Imaging CT Head (04/2025 [facility]) 8mm hypodensity in left caudate nucleus MRI Brain (04/2025 [facility]) Subacute left basal ganglia ischemia, mild WMD, moderate atrophy CTA H/N (04/2025 [facility]) 50% ICA stenosis B. Moderate M1 right MCA stenosis Testing Echo (04/2025 [facility]) EF 65-70%, Aortic sclerosis, severe PHT RSVP 88.6 Total cholesterol 210, HDL 88, triglycerides 44, LDL 107, A1c 9.9 Surgery Failed Eliquis Physical Exam - General appearance, mentation, extraocular movements, facial strength and movement, hearing, upper and lower extremity strength and tone, sensation to gross testing, coordination, and gait are normalor at baseline unless noted below. HEENT - __Drowsy_, unchanged: ___, orig: ___ MS - ___, [...] Signs - Visit Vitals Ht 6' Wt 185 lb BMI 25.09 kg/m?? Smoking Status Former BSA 2.06 m?? [...] keratosis Basal cell carcinoma COVID-19 11/22/2020 Diabetes (HCC) Past Surgical History: Procedure Laterality Date BACK [...] Neg Hx Outpatient Encounter Medications as of 05/08/2025 Medication Sig Dispense Refill acetaminophen (Tylenol) 500 MG tablet Take 1,000 mg by mouth every 6 (six) hours if needed for mildpain ALPRAZolam (Xanax) 0.25 MG tablet every 12 (twelve) hours. aspirin 81 MG EC tablet Take 1 tablet by mouth in the morning. B-Complex tablet as directed Orally bacitracin 500 UNIT/GM ointment Apply 1 application topically in the morning and 1 application before bedtime. budesonide-formoterol (Symbicort) 80-4.5 MCG/ACT inhaler Inhale 2 puffs in the morning and 2 puffs before bedtime. Rinse mouth with water after use to reduce aftertaste and incidence of candidiasis. Do not swallow. cetirizine (ZyrTEC) 10 MG chewable tablet Chew 10 mg Daily cholecalciferol (Vitamin D-[address]) 25 MCG (1000 UT) tablet Take 2,000 Units by mouth in the morning. cloNIDine (Catapres) 0.1 MG tablet Take 1 tablet by mouth in the morning and 1 tablet before bedtime. (Patient taking differently: Take 0.2 mg by mouth in the morning and 0.2 mg before bedtime.) dicyclomine (Bentyl) 10 MG capsule Take 1 capsule every day by oral route. empagliflozin (Jardiance) 25 MG Take 1 tablet by mouth in the morning. ezetimibe (Zetia) 10 MG tablet Take 1 tablet by mouth in the morning. ferrous sulfate 325 (65 Fe) MG tablet Take 1 tablet by mouth in the morning and 1 tablet before bedtime. fluticasone-salmeterol (AirDuo RespiClick) 113-14 MCG/ACT inhaler Inhale 1 puff in the morning and 1 puff before bedtime. Rinse mouth with water after use to reduce aftertaste and incidence of candidiasis. Do not swallow. glimepiride (Amaryl) 4 MG tablet Take 1 tablet by mouth in the morning and 1 tablet before bedtime. insulin lispro protamine-insulin lispro (HumaLOG MIX 50/50 KWIKPEN) (50-50) 100 UNIT/ML injection Inject under the skin in the morning and in the evening. Inject with meals. (Patient taking differently: Inject under the skin in the morning and at noon and in the evening and before bedtime. Before meals and at bed.) labetalol (Normodyne) 300 MG tablet 3 (three) times a day Lasix 20 MG tablet 1 (one) time each day at the same time. (Patient taking differently: Take 40 mg by mouth Daily) linaGLIPtin (Tradjenta) 5 MG tablet Take 5 mg by mouth Daily loratadine (Claritin Reditabs) 10 MG disintegrating tablet Take 10 mg by mouth Daily magnesium oxide 500 MG tablet Take 500 mg by mouth in the morning and 500 mg in the evening and 500mg before bedtime. metFORMIN (Glucophage) 500 MG tablet Take 500 mg by mouth in the morning and 500 mg in the evening and 500 mg before bedtime. omeprazole (PriLOSEC) [address] capsule Take 2 capsules every day by oral route for 90 days. pioglitazone (Actos) 45 MG tablet TAKE 1 TABLET BY MOUTH EVERY DAY for 90 polyethylene glycol, PEG, 3350 (Miralax) 17 g packet Take 17 g by mouth Daily as needed potassium chloride (Klor-Con) 20 MEQ packet Take 20 mEq by mouth Daily prednisoLONE acetate (Pred-Forte) 1 % ophthalmic suspension INSTILL 1 DROP INTO RIGHT EYE 3 TIMES ADAY DIRECTED primidone (Mysoline) 250 MG tablet 1/2 tab BID (Patient taking differently: Take 100 mg by mouth inthe morning and 100 mg before bedtime. 1/2 tab BID.) 90 tablet 1 psyllium (Metamucil) 58.6 % packet Take 1 packet by mouth Daily Mix and drink with at least 8 ounces of water or juice. rivaroxaban (Xarelto) 15 MG tablet Take 15 mg by mouth spironolactone (Aldactone) 25 MG tablet Take 25 mg by mouth Daily tamsulosin (Flomax) 0.4 MG 24 hr capsule Take 1 capsule every day by oral route for 90 days. tiotropium (Spiriva) [address] 1 capsule into inhaler and inhale in the morning. acyclovir (Zovirax) 400 MG tablet Take 1 tablet twice a day by oral route for 30 days. (Patient nottaking: Reported on 05/08/2025) alogliptin (Nesina) 25 MG tablet Take 1 tablet by mouth in the morning. (Patient not taking: Reported on 05/08/2025) DULoxetine (Cymbalta) [address] capsule Take 1 capsule (20 mg) by mouth at bedtime (Patient not taking: Reported on 05/08/2025) 90 capsule 1 ezetimibe (Zetia) 10 MG tablet Take 10 mg by mouth in the morning. KLOR-CON 20 MEQ ER tablet Take 1 tablet by mouth in the morning and 1 tablet before bedtime. levoFLOXacin (Levaquin) 750 MG tablet 1 (one) time each day at the same time. metoclopramide (Reglan) 5 MG tablet every 12 (twelve) hours (Patient not taking: Reported on 05/08/2025) No facility-administered encounter medications on file as of 05/08/2025. [facility] ? [address] [facility] [address] ? [place], [place] [address] ? ? fax Neurology ? Clinical Neurophysiology ? Epilepsy ? Sleep Disorders ? Clinical Informatics documented in this encounter Plan of Treatment Upcoming Encounters Date Type Department Care Team (Late st Contact Info) Description 06/21/2025 10:40 AM EDT Office Visit [facility] [address] [place] [address] Blaise Dc, DPM [address] [facility] [address] [place] [address] 07/10/2025 10:30 AM EDT Office Visit [facility] [address] [place] [address] Lenin Montoya MD [address] [facility] [address] [id number] 09/11/2025 1:15 PM EDT Office Visit [facility] [address] [place] [address] Mercedes Joy MD [address] [facility] [address] [place] [address] 10/09/2025 1:45 PM EST Office Visit [facility] [address] [place] [address] Lenin Montoya MD [address] [facility] [address] [address] documented as of this encounter Visit Diagnoses Diagnosis Benign essential tremor- Primary Essential and other specified forms of tremor Neurogenic pain 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 Cervical paraspinal muscle spasm Spasm of muscle JOSIAH (obstructive sleep apnea) Obstructive sleep apnea (adult) (pediatric) Carotid stenosis, bilateral Occlusion and stenosis of carotid artery without mention of cerebral infarction Polyneuropathy Unspecified hereditary and idiopathic peripheral neuropathy documented in this encounter Care Teams Machine Brusher Relationship Specialty Start Date End Date Pj Sung MD [address] [facility] [place] [place] [id number] PCP - General Family Medicine 12/02/23 documented as of this encounter
--- OUTSIDE RECORDS SUMMARY | 2025-05-08 14:00 | XMS_ITS | Encounter Summary ---
Author Organization [facility] Address [address] [place] [address] Care Team Providers Care Textile Converter Name Role Phone Pj Sung MD Primary Care Provider [phone] Encounter Details Date Type Department Care Team (Late st Contact Info) Description 05/08/2025 2:00 PM EDT Office Visit [facility] [address] [facility] [address] [place] [address] Winnie Hreron, WRAP KNITTING MACHINE OPERATOR [address], [facility] [address] [place] [address] Benign essential tremor (Primary Dx); [...] titration study Managed by Dr John in [place] * Winnie Herron NP - 05/08/2025 2:00 [...] complaint on file. Appointment Note -- FU ([facility]) Patient is here today for post stroke [...] titration study Managed by Dr John in [place] Carotid stenosis, bilateral Plan redo US carotids 2026. Polyneuropathy (Continue current regimen.) No orders of the defined types were placed in this encounter. Follow-Up - No follow-ups on file. History of Present Illness, Associated Treatments and Results - Dx (JOSIAH) Tx OFF BiPAP @ 31/10 AEs Hx JOSIAH - [facility] Failed Semeiology Circadian Noct oxim PSG _ ([place] - _ PAPT ([place]) - AHI=8.1 @ 31/10 (max pressure) MSLT [...] ASA, Xeralto ?, statin.) AEs Hx Onset [address] AMS and garbled speech Semeiology To [facility]. CT and MRI showed stroke ? Subacute. Eliquis changed to Xeralto. DC to [place] for Skilled therapy. Imaging CT Head (04/2025 [facility]) 8mm hypodensity in left caudate nucleus MRI Brain (04/2025 [facility]) Subacute left basal ganglia ischemia, mild WMD, moderate atrophy CTA H/N (04/2025 [facility]) 50% ICA stenosis B. Moderate M1 right MCA stenosis Testing Echo (04/2025 [facility]) EF 65-70%, Aortic sclerosis, severe PHT RSVP [...] 05/08/2025. [facility] ? [address] [facility] [address] ? [place], [place] [address] ? ? fax Neurology ? Clinical Neurophysiology ? Epilepsy ? Sleep Disorders ? Clinical Informatics documented in this encounter Plan of Treatment Upcoming Encounters Date Type Department Care Team (Late st Contact Info) Description 06/21/2025 10:40 AM EDT Office Visit [facility] [address] [place] [address] Blaise Dc, DPM [address] [facility] 5 [place] [address] 07/10/2025 10:30 AM EDT Office Visit [facility] [address] [place] [address] Lenin Montoya MD [address] [facility] [address] [phone] 09/11/2025 1:15 PM EDT Office Visit [facility] [address] [place] [address] Mercedes Joy MD [address] [facility] [address] [place] [address] 10/09/2025 1:45 PM EST Office Visit [facility] B [address] [place] [address] Lenin Montoya MD 3211 [facility] [address] [address] documented as of this encounter Visit Diagnoses [...] neuropathy documented in this encounter Care Teams Textile Converter Relationship Specialty Start Date End Date Pj Sung MD [address] [facility] [place] [phone] PCP - General Family Medicine 12/02/23 documented as of this encounter
--- OUTSIDE RECORDS SUMMARY | 2025-05-08 17:58 | XMS_ITS | Clinical Summary ---
Author Organization [facility] Healthcare Address [address] [facility] [place] [place] [address] Care Team Providers Care Quality Reviewer Name Role Phone Pj Sung MD Primary Care Provider [phone] Allergies Active Allergy Reactions Criticality Noted Date Comments Iodinated Contrast Media 08/24/2023 Other Reaction(s): Unknown Nitroglycerin 02/22/2022 Other Reaction(s): Not available, Unknown Statins 08/24/2023 Other Reaction(s): elevated liver enzymes, Unknown Medications acyclovir (Zovirax) 400 MG tablet Take 1 tablet twice a day by oral route for 30 days. Active alogliptin (Nesina) 25 MG tablet Take 1 tablet by mouth in the morning. 022 Active ALPRAZolam (Xanax) 0.25 MG tablet every [...] time each day at the same time. 023 Active glimepiride (Amaryl) 4 MG tablet Take 1 tablet by mouth in the morning and 1 tablet before bedtime. Active labetalol (Normodyne) 300 MG tablet 3 (three) times a day Active levoFLOXacin (Levaquin) 750 MG tablet 1 (one) time each day at the same time. 023 Active omeprazole (PriLOSEC) [address] capsule [...] by oral route for 90 days. Active cholecalciferol (Vitamin D-[address]) 25 MCG (1000 UT) tablet Take 2,000 Units by mouth in the morning. Active metoclopramide (Reglan) 5 MG tablet every 12 (twelve) hours Active ezetimibe (Zetia) 10 MG tablet Take 10 mg by mouth in the morning. Active empagliflozin (Jardiance) 25 MG Take 1 tablet by mouth in the morning. 022 Active DULoxetine (Cymbalta) [address] capsuleIndication s:Neurogenic pain Take 1 capsule (20 mg) by mouth at bedtime 90 capsule 1 024 Active Additional Information Patient not taking.Reported on 05/08/2025 rivaroxaban (Xarelto) 15 MG tablet Take 15 mg by mouth Active primidone (Mysoline) 250 MG tabletIndications :Benign essential tremor 1/2 tab BID 90 tablet 1 025 Active Additional Information Patient taking differently: 100 mg Oral 2 times daily, Morning, Bedtime, 1/2 tab BID, Reported on 05/08/2025 acetaminophen (Tylenol) 500 MG tablet Take 1,000 mg by mouth every 6 (six) hours if needed for mild pain Active bacitracin 500 UNIT/GM ointment Apply 1 application topically in the morning and 1 application before bedtime. Active psyllium (Metamucil) 58.6 % packet Take 1 packet by mouth Daily Mix and drink with at least 8 ounces of water or juice. Active fluticasone-salme terol (AirDuo RespiClick) 113-14 MCG/ACT inhaler Inhale 1 puff in the morning and 1 puff before bedtime. Rinse mouth with water after use to reduce aftertaste and incidence of candidiasis. Do not swallow. Active insulin lispro protamine-insulin lispro (HumaLOG MIX 50/50 KWIKPEN) (50-50) 100 UNIT/ML injection Inject under the skin in the morning and in the evening. Inject with meals. Active loratadine (Claritin Reditabs) 10 MG disintegrating tablet Take 10 mg by mouth Daily Active magnesium oxide 500 MG tablet Take 500 mg by mouth in the morning and 500 mg in the evening and 500 mg before bedtime. Active metFORMIN (Glucophage) 500 MG tablet Take 500 mg by mouth in the morning and 500 mg in the evening and 500 mg before bedtime. Active polyethylene glycol, PEG, 3350 (Miralax) 17 g packet Take 17 g by mouth Daily as needed Active potassium chloride (Klor-Con) 20 MEQ packet Take 20 mEq by mouth Daily Active tiotropium (Spiriva) [address] 1 capsule into inhaler and inhale in the morning. Active spironolactone (Aldactone) 25 MG tablet Take 25 mg by mouth Daily Active linaGLIPtin (Tradjenta) 5 MG tablet Take 5 mg by mouth Daily Active budesonide-formot lexx (Symbicort) 80-4.5 MCG/ACT inhaler Inhale 2 puffs in the morning and 2 puffs before bedtime. Rinse mouth with water after use to reduce aftertaste and incidence of candidiasis. Do not swallow. Active cetirizine (ZyrTEC) 10 MG chewable tablet Chew 10 mg Daily Active apixaban (Eliquis) 2.5 MG tablet every 12 (twelve) hours. 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 (We have only MRA) Carotid stenosis, bilateral 04/10/2025 Assessment & Plan (05/08/2025 4:35 PM EDT): Plan redo US carotids 2026. Assessment & Plan (04/10/2025 1:49 PM EDT): Plan redo US carotids 2026. JOSIAH (obstructive sleep apnea) 01/11/2024 Assessment & Plan (05/08/2025 4:35 PM EDT): Family will bring CPAP to SNF. Has been noncompliant at home May benefit from re titration study Managed by Dr John in [place] Assessment & Plan (04/10/2025 1:49 PM EDT): Still have only PAPT. Get original PSG.0 Assessment & Plan (08/01/2024 11:49 AM EDT): Get original PSG (only received PAPT). Assessment & Plan (01/11/2024 2:07 PM EST): Get sleep studies for our records - [place]. Also send to [facility] (though not sure if liliya'd there). Polyneuropathy 01/07/2024 Assessment & Plan (05/08/2025 4:35 PM EDT): (Continue current regimen.) Benign essential tremor 01/07/2024 Assessment & Plan (05/08/2025 4:35 PM EDT): (Continue current regimen.) Primidone was decreased Assessment & Plan (04/10/2025 1:49 PM EDT): [...] paraspinal muscle spasm 01/07/2024 Assessment & Plan (05/08/2025 4:35 PM EDT): (In SNF post stroke) Assessment & Plan (04/10/2025 1:49 PM EDT): (Continue home PT.) Assessment & Plan (08/01/2024 11:49 AM EDT): (Continue home PT.) Assessment & Plan (01/11/2024 2:03 PM EST): (Continue home PT). Neurogenic pain 01/07/2024 Assessment & Plan (05/08/2025 4:35 PM EDT): (Continue current regimen.) OFF dulox Assessment & Plan (04/10/2025 1:49 PM EDT): [...] Encounters Date Type Department Care Team Description 05/08/2025 2:00 PM EDT Office Visit [facility] [address] [facility] [address] [place] [address] Winnie Herron, VANESSA Benign essential tremor (Primary Dx); Neurogenic pain; Sequelae of cerebral infarction; Cervical paraspinal muscle spasm; JOSIAH (obstructive sleep apnea); Carotid stenosis, bilateral; Polyneuropathy 05/08/2025 Bamboo flowsheet [facility] [address] [place] [address] Winnie Herron NP 05/08/2025 Travel 04/25/2025 Telephone [facility] NEURO [address] [facility] [address] [place] [address] Mulu Edgar MA 04/12/2025 11:20 AM EDT Office Visit [facility] [address] [facility] [address] [place] [address] Blaise Dc, DPJim Verruca plantaris (Primary Dx); Foot pain, right; Diabetes mellitus due to underlying condition with diabetic polyneuropathy, unspecified whether residential insulin use (HCC); Pain due to onychomycosis of toenails of both feet 04/12/2025 Bamboo flowsheet [facility] [address] [facility] [address] [place] [address] Blaise Dc DPM 04/12/2025 Travel 04/10/2025 12:45 PM EDT Office Visit [facility] NEUR B [address] [phone] Lenin Montoya MD Benign essential tremor (Primary Dx); Neurogenic pain; Sequelae of cerebral infarction; Cervical paraspinal muscle spasm; JOSIAH (obstructive sleep apnea); Carotid stenosis, bilateral 04/10/2025 Bamboo flowsheet [facility] [address] [place] [address] Lenin Montoya MD 04/10/2025 Travel 03/08/2025 9:20 AM EDT Office Visit [facility] [address] [facility] [address] [place] [phone] Blaise Dc DPM Verruca plantaris (Primary Dx); Foot pain, right; Diabetes mellitus due to underlying condition with diabetic polyneuropathy, unspecified whether 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 helper insulin use (HCC); Pain due to onychomycosis of toenails of both feet 03/08/2025 Bamboo flowsheet [facility] [address] [facility] [address] [place] [phone] Blaise Dc DPM 03/08/2025 Travel from Last [...] Mass Index 25.09 05/08/2025 4:32 PM EDT Plan of Treatment Upcoming Encounters Date Type Department Care Team (Late st Contact Info) Description 06/21/2025 10:40 AM EDT Office Visit [facility] [address] [facility] [address] [place] [phone] Blaise Dc DPM 3[address] [facility] 5 [place] [address] 07/10/2025 10:30 AM EDT Office Visit [facility] [address] [place] [address] Lenin Montoya MD [address] [phone] 09/11/2025 1:15 PM EDT Office Visit [facility] [address] [place] [address] Mercedes Joy MD [address] [place] [address] 10/09/2025 1:45 PM EST Office Visit [facility] NEUR B [address] [place] [address] Lenin Montoya MD [address] [phone] Health Maintenance Due Date Last Done Comments Pneumococcal Vaccine: 65+ Years Completed , 01/28/2015, 01/28/2015 Influenza Vaccine Completed 08/15/2024, , 08/18/2022, Additional history exists Insurance MEDICARE [facility] Care Teams Quality Reviewer Relationship Specialty Start Date End Date Pj Sung MD [address] [place] [address] PCP - General Family Medicine 12/02/23
--- OUTSIDE RECORDS SUMMARY | 2025-05-08 17:58 | XMS_ITS | Clinical Summary ---
Author Organization [employer] Address [id number] [address] [place] [address] Care Team Providers Care Home Care Provider Name Role Phone Pj Sung MD Primary Care Provider [phone] Encounters Date Type Department Care Team Description 04/14/2025 7:05 PM EDT - 04/16/2025 7:35 AM EDT Emergency [facility] [address] [place] [phone] Discharge Disposition: Telemedicine Discharge 04/14/2025 5:30 PM EDT Ancillary Procedure [facility] [place] [address] Pain 04/14/2025 5:25 PM EDT Ancillary Procedure [facility] [place] [address] Pain 04/14/2025 5:20 PM EDT Ancillary Procedure [facility] [place] [address] Pain 04/14/2025 5:00 PM EDT Ancillary Procedure [facility] [place] [address] Pain 02/15/2025 Orders Only [facility] [address] [place] [phone] Transcribe, Orders Support User Pain (Primary Dx) 02/14/2025 3:25 PM EDT Ancillary Procedure [facility] [address] [place] [address], [place] [phone] Pain 02/14/2025 3:05 PM EDT Ancillary Procedure [facility] [address] [place] [address] Pain 02/14/2025 1:48 PM EDT - 02/17/2025 12:44 PM EDT Emergency [facility] [address] [place] [phone] Discharge Disposition: Telemedicine Discharge 02/14/2025 8:25 AM EDT Ancillary Procedure [facility] [address] [place] [address] Pain from Last 3 Months Social History [...] Fall Risk Screening 02/07/2004 COVID-19 Vaccine (6 - 2023-2 5 season) 2024 08/16/2023, 10/21/2022, 08/26/2021, Additional history exists Influenza Vaccine 07/16/2025 08/20/2023, , 09/11/2021, Additional history exists DTaP,Tdap and Td Vaccines (2 - Td or Tdap) 10/30/2029 10/30/2019 Zoster (Shingles) Vaccine Completed 2024, 11/06/2020, 10/30/2019, Additional history exists Medical Devices Not on file Procedures Procedure Name Priority Date/Time Associated Diagnosis Comments XR CHEST 1 VW Routine 04/14/2025 5:[address] CTA CAROTID Routine 04/14/2025 5:[address] CTA HEAD Routine 04/14/2025 5:[address] BRAIN WO CONT Routine 04/14/2025 5:00 PM EDT Pain MR MRA NECK WO CONT Routine 02/14/2025 3:25 PM ED T Pain MR MRA HEAD WO CONT Routine 02/14/2025 3:05 PM ED T Pain MR BRAIN WO CONT Routine 02/14/2025 8:25 AM EDT Pain from Last 3 Months Results * X-ray chest 1 view (04/14/2025 5:30 PM EDT) us Scanning Provider External IMG DIAGNOSTIC IMAGIN G ORDERABLES Final Result * CT angiogram carotid (04/14/2025 5:25 PM EDT) us Scanning Provider External IMG CT ORDERABLES Fin al Result * CT angiogram head (04/14/2025 5:20 PM EDT) us Scanning Provider External IMG CT ORDERABLES Fin al Result * CT brain without contrast (04/14/2025 5:00 PM EDT) us Scanning Provider External IMG CT ORDERABLES Fin al Result * MRA neck without contrast (02/14/2025 3:25 PM EDT) us Scanning Provider External IMG MRI ORDERABLES Fi nal Result * MRA head without contrast (02/14/2025 3:05 PM EDT) us Scanning Provider External IMG MRI ORDERABLES Fi nal Result * MR brain without contrast (02/14/2025 8:25 AM EDT) us Scanning Provider External IMG MRI ORDERABLES Fi nal Result from Last 3 Months Insurance MEDICARE [facility] Care Teams Home Care Provider Relationship Specialty Start Date End Date Pj Sung MD [address] [place] [address] PCP - General Family Medicine 02/14/25
--- OUTSIDE RECORDS SUMMARY | 2025-05-08 17:58 | XMS_ITS | Clinical Summary ---
Author Organization [facility] Address [address] [place] [address] Care Team Providers Care Car Repairer Apprentice Name Role Phone Pj Sung MD Primary Care Provider [phone] Allergies Active Allergy Reactions Criticality Noted Date Comments Iodinated Contrast Media 07/17/2022 Nitroglycerin 07/17/2022 Mmgwjfr-Loi-Eqk Reductase Inhibitors 07/17/2022 Medications aspirin 81 mg EC tablet Take 1 tablet every day by oral route. Active acyclovir (Zovirax) 400 mg tablet Take 1 tablet twice a day by oral route for 30 days. Active cloNIDine (Catapres) 0.1 mg tablet Take 2 tablets by mouth three times daily. Active ezetimibe (Zetia) 10 mg tablet Take [...] MOUTH DAILY AFTER COMPLETING THE ANTIBIOTICS COURSE 06/10/20 Active dicyclomine (Bentyl) 10 mg capsule Take [...] magnesium tablet Take 250 mg by mouth. 11/06/20 Active ALPRAZolam (Xanax) 0.25 mg tablet Take 1 tablet by mouth Twice daily at 6am and 6pm. 08/15/20 24 Active furosemide (Lasix) 40 mg tabletIndications: Pulmonary hypertension (CMS/HCC),Chronic diastolic congestive heart failure (CMS/HCC) Take 2 tablets (80 mg) by mouth two times daily. 360 tablet 3 12/14/19 25 026 Active prednisoLONE acetate (Pred-Forte) 1 % ophthalmic suspension INSTILL 1 DROP INTO RIGHT EYE 3 TIMES A DAY DIRECTED 12/12/19 25 Active cholecalciferol (Vitamin D3) 25 MCG (1000 UT) capsuleIndications :Vitamin D deficiency Take 5 capsules (125 mcg) by mouth in the morning. 150 capsule 11 01/03/20 25 026 Active Additional Information Patient not taking.Reason: Other, Reported on 04/30/2025 rivaroxaban (Xarelto) 15 mg tablet Take 15 [...] 500 mg by mouth with breakfast. Active b complex vitamins capsule Take 1 capsule by mouth in the morning. Active insulin lispro (HumaLOG) 100 unit/mL injection Inject 10 Units under the skin with breakfast, with lunch, and with evening meal. Active loratadine (Claritin Reditabs) 10 mg disintegrating tablet Take 10 mg by mouth in the morning. Active spironolactone (Aldactone) 50 mg tablet Take 50 mg by mouth in the morning. 04/06/20 Active linaGLIPtin (Tradjenta) 5 mg tablet Take 5 mg by mouth in the morning. Active Active Problems Problem Noted Date Diagnosed [...] (06/14/2023 3:05 PM EDT): Recent admit to [facility] for shortness of breath, acute HFpEF with ARTUR. BNP 3311, BUN 26, CR 1.5-1.9, LFT normal, K+ normal. Troponin level negative. CXR showed vascular congestion Pt was admitted and [facility] Continue GDMT- remains on [...] Encounters Date Type Department Care Team Description 05/07/[address] [address] SiddharthaRandal rojasah [place] 05/04/2025 Telephone [facility] [address] [place] [address] Ruthie Linda MD 04/30/2025 3:00 PM EDT Office Visit [address] [address] Mike Cisneros MD Nonrheumatic aortic valve stenosis (Primary Dx); Chronic diastolic congestive heart failure (CMS/HCC); Shortness of breath; Longstanding persistent atrial fibrillation (CMS/HCC); Pericardial effusion; Pulmonary hypertension (CMS/HCC); 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 [address] [facility], [place] [address] Mike Cisneros MD Longstanding persistent atrial fibrillation (CMS/HCC) (Primary Dx); Nonrheumatic aortic valve stenosis; Pericardial effusion; Pulmonary hypertension (CMS/HCC); Chronic diastolic congestive heart failure (CMS/HCC); Coronary artery disease involving [place] coronary artery of [place] heart without angina pectoris; Primary hypertension; Stage 3b chronic kidney disease (CMS/HCC); Weakness of both lower extremities; Shortness of breath; Abnormal findings on diagnostic imaging of heart and coronary circulation 02/28/2025 10:46 AM EDT - 02/28/2025 11:59 PM EDT Hospital Encounter [facility] Heart [facility] Lab [address] [place] [address] Longstanding persistent atrial fibrillation (CMS/HCC); 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 Discharge Disposition: Home or Self Care (01) 02/28/2025 Travel 02/21/2025 Telephone [facility] [address] [place] [address] Ni Amador, RN 02/19/2025 Orders Only [facility] [address] [facility], [place] [address] Stephanie Carl MA Longstanding persistent atrial fibrillation (CMS/HCC); 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 from Last 3 Months Immunizations Immunization Administration Dates Next Due Covid (The Simple) Bivalent Osmel ter =>12 YRS 10/21/2022 Influenza, Unspecified 08/20/2023,2021,09/11/2021,08/27,08/15/2020,08/15/2019,08/29/2018 ,08/05/2017 Influenza, trivalent, adjuvanted 08/27/2020 Pfizer Covid-19 Vaccine, & up, Fall 2022-08/16/2023 Pfizer SARS-CoV-2 Vaccination 08/26/2021, 021,12/09/2020 Pneumococcal Conjugate PCV 13 08/16/2017 Pneumococcal Polysaccharide PPV23 01/28/2015 Pneumococcal, Unspecified 01/28/2015 RSV, Adult, Bivalent 10/21/2023 Tdap 10/30/2019 Zoster, Recombinant 11/06/2020,10/30/2019 Zoster, live 09/20/2015 Family History Medical History Relation Name Comments Coronary artery disease Father Relation Name Status Comments Father Mother Social History Tobacco Use Types Packs/Day Years Used Date Smoking Tobacco: Former Cigarettes Smokeless Tobacco: Never Alcohol Use Standard Drinks/Week Comments Not Currently 0 (1 standard drink = 0.6 oz pur e alcohol) PHQ-2 Answer Date Recorded Patient Health Questionnaire-2 Score 0 01/03/2025 [place] Answer Date Rec orded [...] Heterosexual or Straight 05/16 8:02 PM EDT Last Filed Vital Signs Vital Sign Reading Time Taken Comments Blood Pressure 184/88 04/30/2025 3:10 PM EDT Pulse 70 04/30/2025 3:10 PM EDT Temperature 36.1 C (96.9 F) 10/30/2020 2:57 PM EST Respiratory Rate 11 02/28/2025 1:00 PM EDT Oxygen Saturation 94% 04/30/2025 3:10 PM EDT Inhaled Oxygen Concentration - - Weight 79.8 kg (176 lb) 04/30/2025 3:10 PM EDT Height 185.4 cm (6' 1 ) 04/30/2025 3:10 PM EDT Body Mass Index 23.22 04/30/2025 3:10 PM EDT Plan of Treatment Upcoming Encounters Date Type Department Care Team (Late st Contact Info) Description 05/10/2025 8:30 AM EDT Hospital Encounter [facility] Heart [facility]ascular [place] [facility] [address] [place] [address] Mike Cisneros MD [address] [place] [address] Nonrheumatic aortic valve stenosis; Chronic diastolic congestive heart failure (CMS/HCC); Shortness of breath; Abnormal findings on diagnostic imaging of heart and coronary circulation 05/10/2025 10:30 AM EDT - 05/10/2025 11:30 AM EDT Surgery [facility] Heart [facility] [place] [facility] [address] [place] [address] Mike Cisneros MD [address] [place] [address] Coronary angiography [42190 (CPT )] 07/11/2025 1:30 PM EDT Follow-Up [facility] [address] [place] [phone] Jeff Hutton MD [address] [place] [address] [id number] Health Maintenance Due Date Last Done Comments Diabetes: Hemoglobin A1C 1940 Medicare Annual Wellness (AWV) 1940 Diabetes: Retinopathy Screening 1950 COVID-19 Vaccine ( season) 2024 08/16/2023, 10/21/2022, 08/26/2021, Additional history exists Depression Screening 01/03/2026 01/03/2025 Fall Risk Screening 01/03/2026 01/03/2025 Adult Tetanus 10/30/2029 10/30/2019 Pneumococcal Vaccine: 50+ Years Completed 08/16/2017, 01/28/2015, 01/28/2015 Influenza Vaccine Completed 08/15/2024, , 08/18/2022, Additional history exists Zoster Vaccines Completed 04/05/2025, 10/16, 10/30/2019, Additional history exists HIB Vaccines Aged Out [...] EDT Narrative 02/28/2025 6:13 PM EDT 1 [facility] Heart Station [address] [place] [address] [phone] (fax) Transesophageal Echocardiogram-[facility] Name: NADIR HEREDIA Study Date: 02/28/2025 11:38 AM B/P: 152 mmHg/76 mmHg HR: Date of : 1940 Location: [facility] Height: 73 in. Age: 85 year(s) Patient Room: Weight: 188 lb. Gender: Male Patient Status: OutPt BSA: 2.1 m2 Indication: Atrial Fibrillation Examination: MARK/Limited Doppler/CFI, Agitated Saline Image Quality: Good Patient Consent: Informed, written consent was obtained for the procedure Exam Location: A MARK was performed in the Cylinder Block Hole Reliner without complications Anesthesia Pharyngeal anesthesia with viscous [...] small pericardial effusion. Procedure Staff Reading Group: [facility] Automatic Paint Sprayer Operator: Katelyn Martinez RDCS Ordering Physician: Mike Cisneros MD Procedure Note Kyleigh Faulkner MD - 02/28/2025 1 [facility] Heart Station [address] [place] [address] [phone] (fax) Transesophageal Echocardiogram-[facility] Name: NADIR HEREDIA Study Date: 02/28/2025 11:38 AM B/P: 152 mmHg/76 mmHg HR: Date of : 1940 Location: [facility] Height: 73 in. Age: 85 year(s) Patient Room: Weight: 188 lb. Gender: Male Patient Status: OutPt BSA: 2.1 m2 Indication: Atrial Fibrillation Examination: MARK/Limited Doppler/CFI, Agitated Saline Image Quality: Good Patient Consent: Informed, written consent was obtained for the procedure Exam Location: A MARK was performed in the [place] [place] without complications Anesthesia Pharyngeal anesthesia with viscous [...] small pericardial effusion. Procedure Staff Reading Group: [facility] Automatic Paint Sprayer Operator: Katelyn Martinez RDCS Ordering Physician: Mike Cisneros MD Mike Cisneros MD CV ECHO PROCEDURES Final Res ult from Last 3 Months Insurance MEDICARE Member Subscriber Plan / Payer (Ef fective 2004-Present) Name:Nadir Heredia Joy Member ID:[id number] Relation to Subscriber:Self Name:Nadir Heredia Subscriber ID:[id number] Payer ID:[id number] Group ID:Not on file Type:Medicare Address: [facility] [address] Care Teams Car Repairer Apprentice Relationship Specialty Start Date End Date Pj Sung MD [address] [facility] [place] [address] PCP - General 07/17/22
--- OUTSIDE RECORDS SUMMARY | 2025-05-08 17:58 | XMS_ITS | Patient Health Record ---
Author Organization The [facility] in [place] Address [address] [place] [address] Care Team Providers Care Lab Nurse Name Role Phone Pineda Erik Primary Care Provider [phone] Allergies Allergen (clinical drug ingredient) Drug/Non Drug [...] UROBILINOGEN neg NITRITE neg LEUKOCYTE ESTERASE neg AMMONIA Reviewed date:01/18/2025 09:02:22 PM Interpretation: Performing Lab: Notes/Report: [facility] , Ammonia <10 11-32 umol/L Performing Lab: see note ML - [facility] LB BNP Reviewed date:01/18/2025 09:02:22 PM Interpretation: Performing Lab: Notes/Report: [facility] , NT Pro B Type Natriuretic Pept 2045.0 <=1800.0 pg/mL RESULTS CALLED TO cynthia valenzuela lpn @BY Cecilia Elder at 1158 Performing Lab: see note - [facility] BNP Reviewed date:04/15/2025 04:42:25 PM Interpretation: Performing Lab: Notes/Report: [facility] , NT Pro B Type Natriuretic Pept 2805.0 <=1800.0 pg/mL RESULTS CALLED TO DR. SUNG Performing Lab: see note - [facility] LB BNP (Not yet reviewed by pro vider) Interpretation: Performing Lab: Notes/Report: [facility] , NT Pro B Type Natriuretic Pept 6396.0 <=1800.0 pg/mL RESULTS CALLED TO MARIA LUZ CHAPMAN Performing Lab: see note ML - [facility] LB CA echo doppler complete Reviewed date:06/11/2024 11:52:26 AM Interpretation: Performing Lab: Notes/Report: Source Facility: [facility]-[address] [place] [address] [place] [address] Cardiology Report Signed Patient: NADIR HEREDIA MR#: [id number] : 1940 Acct:[id number] Age/Sex: 84 / M ADM Date: 06/09/24 Loc: CARD Attending Dr: CLARIBEL PUGA Ordering Physician: CLARIBEL PUGA Date of Service: 06/09/24 Procedure(s): CA echo doppler complete Accession Number(s): [id number] cc: Van Sung M.D.; CLARIBEL PUGA Patient Name: NADIR HEREDIA MR#: [id number] : 1940 Exam Date: 06/09/2024 Ordering Doctor: [...] Signed By: 06/09/24 1516 DD/ 1515 TD/TT: Relief Operator: [place] [address] Cardiology Report Signed Patient: NADIR HEREDIA MR#: [id number] : 1940 Acct:[id number] Age/Sex: 84 / M ADM Date: 06/09/24 Loc: CARD Attending Dr: CLARIBEL PUGA Ordering Physician: CLARIBEL PUGA Date of Service: 06/09/24 Procedure(s): CA ech o doppler complete Accession Number(s): [id number] cc: Van Sung M.D. ; CLARIBEL PUGA Patient Name: NADIR HEREDIA MR#: [id number] : 1940 Exam Date: 06/09/2024 Ordering Doctor: [...] Signed By: 06/09/24 1516 DD/ 1515 TD/TT: Relief Operator: HEMOGLOBIN Reviewed date:06/19/2024 07:43:22 PM Interpretation: Performing Lab: Notes/Report: [facility] , Hemoglobin 15.3 14.0-18.0 g/dL Performing Lab: see note ML - [facility] LB CBC AUTO DIFF Reviewed date:08/06/2024 09:17:32 PM Interpretation: Performing Lab: Notes/Report: [facility] , White Blood Count 7.9 [...] Performing Lab: see note ML - [facility] LB PROF CHEM 8 (BAS METB) Reviewed date:08/06/2024 09:17:32 PM Interpretation: Performing Lab: Notes/Report: [facility] , Sodium 138 136-145 mmol/L Potassium 4.0 3.5-5.1 mmol/L Chloride 102 98-107 mmol/L Carbon Dioxide 28.4 21.0-32.0 mmol/L Anion Gap 11.6 Glucose 245 74-106 mg/dL Blood Urea Nitrogen 27.0 7.0-18.0 mg/dL Creatinine 1.56 0.70-1.30 mg/dL Estimated GFR ( Vira 52 >=60 Estimated GFR (Non- Coleen 43 >=60 BUN Creatinine Ratio 17.3 Calcium 9.1 8.5-10.1 mg/dL Performing Lab: see note ML - [facility] LB UA RANDOM W or MICROSCOPIC Reviewed date:08/06/2024 09:17:32 PM Interpretation: Performing Lab: Notes/Report: [facility] , Color Urine LT. YELLOW YELLOW Clarity Urine CLEAR CLEAR Specific [place] Urine 1.010 1.005-1.025 pH Urine 7.0 5.0-9.0 [...] #/LPF Performing Lab: see note ML - [facility] LB AMMONIA Reviewed date:08/16/2024 09:49:03 PM Interpretation: Performing Lab: Notes/Report: [facility] , Ammonia <10 11-32 umol/L Performing Lab: see note ML - [facility] LB BLOOD GASES BTY Reviewed date:08/16/2024 09:49:03 PM Interpretation: Performing Lab: Notes/Report: [facility] , pH ABG 7.451 7.350-7.450 ABG PCO2 38.3 35.0-45.0 mmHg PO2 ABG 72.2 80.0-100.0 mmHg HCO3 ABG 26.7 22.0-26.0 mmol/L Base Excess ABG 2.7 -2.0-2.0 mmol/L Oxygen Saturation ABG 94.8 Prince Test POSITIVE POSITIVE O2 Mode RA Puncture Site LR Performing Lab: see note ML - [facility] LB LACTATE or LACTIC ACID Reviewed date:08/16/2024 09:49:03 PM Interpretation: Performing Lab: Notes/Report: [facility] , Lactate/Lactic Acid 1.8 0.4-2.0 mmol/L Performing Lab: see note ML - [facility] LB PROF 14(COMP METB) Reviewed date:08/16/2024 09:49:03 PM Interpretation: Performing Lab: Notes/Report: [facility] , Sodium 138 136-145 mmol/L [...] Performing Lab: see note ML - [facility] Troponin I High Sensitivity Reviewed date:08/16/2024 09:49:03 PM Interpretation: Performing Lab: Notes/Report: [facility] , Troponin I High Sensitivity 17.0 4.0-76.1 pg/mL CUT-OFF POINTS HAVE BEEN ESTABLISHED BASED ON THE FOURTH UNIVERSAL DEFINITION OF MYOCARDIAL INFARCTION. THE UPPER REFERENCE LIMIT (URL) OF TROPONIN, DEFINED THE 99TH PERCENTILE OF cTnI DISTRIBUTION IN A REFERENCE POPULATION, HAS BEEN CONFIRMED THE DECISION THRESHOLD FOR [place] DIAGNOSIS. 99TH PERCENTILE = 76.2 PG/ML NOTE: HIGH-SENSITIVITY TROPONIN ASSAY IS NOT INTENDED TO BE USED IN ISOLATION BUT SHOULD BE INTERPRETED IN CONJUNCTION WITH OTHER DIAGNOSTIC AND CLINICAL INFORMATION. Performing Lab: see note ML - [facility] SARS-CoV-2 Ag* Reviewed date:08/16/2024 09:49:03 PM Interpretation: Performing Lab: Notes/Report: [facility] , SARS-CoV-2 Ag NEGATIVE NEGATIVE [...] Performing Lab: see note ML - [facility] LB ECG 12 lead Reviewed date:08/19/2024 09:36:11 PM Interpretation: Performing Lab: Notes/Report: Source Facility: [facility]-[address] [place] [address] [place] [address] Electrocardiograph Report Signed Patient: NADIR HEREDIA MR#: [id number] : 1940 Acct:[id number] Age/Sex: 84 / M ADM Date: 08/16/24 Loc: MS 217-[address]: Van Sung M.D. Ordering Physician: Lotus Ace D.O. 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 Signed By: 08/18/24 0649 DD/ 1 TD/TT: Relief Operator: [place] [address] Electrocardiograph Report Signed Patient: NADIR HEREDIA MR#: [id number] : 1940 Acct:[id number] Age/Sex: 84 / M ADM Date: 08/16/24 Loc: MS 217-[address]: Gama Sung M.D. Ordering Physician: Lotus Ace D.O. Date of Service: 08/16/24 Procedure(s): ECG 12 lead Accession Number(s): [id number] cc: [facility] Test Date: 2024-08-16 Pat Name: NADIR HEREDIA Department: 34 Room: - Gender: Male National Expansion Recruiter: : 1940 Requ ested By: VAN SUNG Order Number: [id number] Reading MD: VAN SUNG Measurements Intervals [place] Rate: 63 P: -88552 AK: -70550 QRS: 4 QRSD: 102 T: 40 QT: [...] By: José Miguel Sung M.D. Signed By: 08/18/24 0649 DD/ 1 TD/TT: Relief Operator: CT head/brain wo con Reviewed date:08/16/2024 09:49:03 PM Interpretation: Performing Lab: Notes/Report: Source Facility: [place] [address] [address] [place] [id number] Scan Report Signed Patient: NADIR HEREDIA MR#: [id number] : 1940 Acct:[id number] Age/Sex: 84 / M ADM Date: 08/16/24 Loc: ER Attending Dr: Ordering Physician: Lotus Ace D.O. Date of Service: 08/16/24 Procedure(s): CT head/brain wo con Accession Number(s): [id number] cc: Van Sung M.D. The [place] [address] Patient Name: NADIR HEREDIA MRN: [id number] date: 1940 Sex: M Assigned Patient Location: ER Current Patient Location: ER Accession/Order Number: [id number] Exam Date: 08/16/2024 09:08 Report Date: 08/16/2024 [...] M.D. Signed By: 08/16/24924 DD/ 1 TD/TT: Relief Operator: The [address] [address] [address] Scan Report Signed Patient: NADIR HEREDIA MR#: [id number] : 1940 Acct:[id number] Age/Sex: 84 / M ADM Date: 08/16/24 Loc: ER Attending Dr: Ordering Physician: Lotus Ace D.O. Date of Service: 08/16/24 Procedure(s): CT head/brain wo con Accession Number(s): [id number] cc: Van Sung M.D. [address] [address] Patient Name: NADIR HEREDIA MRN: [id number] date: 1940 Sex: M Assigned Patient Location: ER Current Patient Loca tion: ER Accession/Order Numb er: [id number] Exam Date: 09:08 Report Date: 08/16/2024 09:22 [...] M.D. Signed By: 08/16/24924 DD/ 1 TD/TT: Relief Operator: NATALIYA AUTO DIFF Reviewed date:08/17/2024 08:52:06 PM Interpretation: Performing Lab: Notes/Report: [facility] , White Blood Count 9.3 [...] Performing Lab: see note ML - [facility] LB PROF 14(COMP METB) Reviewed date:08/17/2024 08:52:06 PM Interpretation: Performing Lab: Notes/Report: [facility] , Sodium 139 136-145 mmol/L [...] Performing Lab: see note ML - [facility] LB CBC AUTO DIFF Reviewed date:09/08/2024 12:40:56 PM Interpretation: Performing Lab: Notes/Report: [facility] , White Blood Count 7.9 4.0-11.0 10 [...] 10 3/uL Performing Lab: see note - [facility] LB PROF CHEM 8 ([facility] METB) Reviewed date:09/08/2024 12:39:03 PM Interpretation: Performing Lab: Notes/Report: [facility] , Sodium 139 136-145 mmol/L [...] 9.0 8.5-10.1 mg/dL Performing Lab: see note - [facility] UA RANDOM W or MICROSCOPIC Reviewed date:09/10/2024 09:12:17 PM Interpretation: Performing Lab: Notes/Report: [facility] , Color Urine LT. YELLOW YELLOW Clarity Urine CLEAR CLEAR Specific [place] Urine 1.010 1.005-1.025 pH Urine 7.0 5.0-9.0 [...] NONE SEEN #/LPF Performing Lab: see note - [facility] LB Troponin I High Sensitivity Reviewed date:09/08/2024 12:39:03 PM Interpretation: Performing Lab: Notes/Report: [facility] , Troponin I High Sensitivity 14.8 4.0-76.1 pg/mL CUT-OFF POINTS HAVE BEEN ESTABLISHED BASED ON THE FOURTH UNIVERSAL DEFINITION OF MYOCARDIAL INFARCTION. THE UPPER REFERENCE LIMIT (URL) OF TROPONIN, DEFINED THE 99TH PERCENTILE OF cTnI DISTRIBUTION IN A REFERENCE POPULATION, HAS BEEN CONFIRMED THE DECISION THRESHOLD FOR [place] DIAGNOSIS. 99TH PERCENTILE = 76.2 PG/ML NOTE: HIGH-SENSITIVITY TROPONIN ASSAY IS NOT INTENDED TO BE USED IN ISOLATION BUT SHOULD BE INTERPRETED IN CONJUNCTION WITH OTHER DIAGNOSTIC AND CLINICAL INFORMATION. Performing Lab: see note ML - [facility] LB ECG 12 lead Reviewed date:09/13/2024 06:22:56 PM Interpretation: Performing Lab: Notes/Report: Source Facility: [place] [address] [place] [address] Electrocardiograph Report Signed Patient: NADIR HEREDIA MR#: [id number] : 1940 Acct:[id number] Age/Sex: 84 / M ADM Date: 09/08/24 Loc: ER Attending Dr: Ordering Physician: Akhil Dobson M.D. Date of Service: 09/08/24 Procedure(s): ECG 12 lead Accession Number(s): [id number] cc: [facility] Test Date: 2024-09-08 Pat Name: NADIR HEREDIA Department: Room: - Gender: Male National Expansion Recruiter: : 1940 Requested By: VAN SUNG Order Number: [id number] Reading MD: NOEL DAWN Measurements Intervals [place] Rate: 72 P: -06019 AK: -93772 QRS: 97 QRSD: 94 T: 30 QT: 402 QTc: 426 Interpretive Statements 75970 Atrial fibrillation with aberrant conduction, or ventricular premature complexes 3433 Septal myocardial infarction, probably old 3533 Lateral myocardial infarction, probably old 7300 Indeterminate axis 9150 abnormal ECG Electronically Signed On 09-12-2024 22:59:43 EDT by NOEL DAWN Dictated By: Noel Dawn D.O. Signed By: 09/12/24 8508 DD/ 1203 TD/TT: Relief Operator: [place] [address] Electrocardiograph Report Signed Patient: NADIR HEREDIA MR#: [id number] : 1940 Acct:[id number] Age/Sex: 84 / M ADM Date: 09/08/24 Loc: ER Attending Dr: Ordering Physician: Akhil Dobson M.D. Date of Service: 09/08/24 Procedure(s): ECG 12 lead Accession Number(s): [id number] cc: [facility] Test Date: 2024-09-08 Pat Name: NADIR HEREDIA Department: 34 Room: - Gender: Male National Expansion Recruiter: : 1940 Requ ested By: VAN SUNG Order Number: [id number] Reading MD: NOEL DAWN Measurements Intervals [place] Rate: 72 P: -06891 AK: -15099 QRS: 97 QRSD: 94 T: 30 QT: 402 QTc: 426 Interpretive Statements 88155 Atrial fibrill ation with aberrant conduction, or ventricular premature complexes 3433 Septal myocardi al infarction, probably old 3533 Lateral myocard ial infarction, probably old 7300 Indeterminate axis 9150 abnormal ECG Electronically Rosenda d On 09-12-2024 22:59:43 EDT by NOEL DAWN Dictated By: Noel Dawn D.O. Signed By: 09/12/242258 DD/ 1203 TD/TT: Relief Operator: CT head/brain wo con Reviewed date:09/10/2024 09:12:17 PM Interpretation: Performing Lab: Notes/Report: Source Facility: [place] [address] [place] [address] CT Scan Report Signed Patient: NADIR HEREDIA MR#: [id number] : 1940 Acct:[id number] Age/Sex: 84 / M ADM Date: 09/08/24 Loc: ER Attending Dr: Ordering Physician: Akhil Dobson M.D. Date of Service: 09/08/24 Procedure(s): CT head/brain wo con Accession Number(s): [id number] cc: Van Sung M.D. The [address] [address] Patient Name: NADIR HEREDIA MRN: [facility]:[id number] date: 1940 Sex: M Assigned Patient Location: ER Current Patient Location: ER Accession/Order Number: [id number] Exam Date: 09/08/2024 12:45 Report Date: 09/08/2024 [...] Signed By: 09/08/24 1311 DD/ 1308 TD/TT: Relief Operator: [place] [address] CT Scan Report Signed Patient: NADIR HEREDIA MR#: [id number] : 1940 Acct:[id number] Age/Sex: 84 / M ADM Date: 09/08/24 Loc: ER Attending Dr: Ordering Physician: Akhil Dobson M.D. Date of Service: 09/08/24 Procedure(s): CT head/brain wo con Accession Number(s): [id number] cc: Van Sung M.D. [place] [address] Patient Name: NADIR HEREDIA MRN: [id number] date: 1940 Sex: M Assigned Patient Location: ER Current Patient Loca tion: ER Accession/Order Numb er: [id number] Exam Date: 12:45 Report Date: 09/08/2024 13:08 At the request of: AKHIL DOBSON Procedure: CT head/ brain wo con EXAM: CT head/brain wo con [...] By: Ratna Peters M.D. Signed By: 09/08/24 6820 DD/ 1421 TD/TT: Relief Operator: JOHNNY chest 1V Reviewed date:09/10/2024 09:12:18 PM Interpretation: Performing Lab: Notes/Report: Source Facility: [facility]-[address], [place] [address] XRay Report Signed Patient: NADIR HEREDIA MR#: [id number] : 1940 Acct:[id number] Age/Sex: 84 / M ADM Date: 09/08/24 Loc: ER Attending Dr: Ordering Physician: Akhil Dobson M.D. Date of Service: 09/08/24 Procedure(s): XR chest 1V Accession Number(s): [id number] cc: Van Sung M.D.; Akhli Dobson M.D. The [place] [address] Patient Name: NADIR HEREDIA MRN: [id number] date: 1940 Sex: M Assigned Patient Location: ER Current Patient Location: ER Accession/Order Number: [id number] Exam Date: 09/08/2024 12:18 Report Date: 09/08/2024 [...] Signed By: 09/08/24 1303 DD/ 1301 TD/TT: Relief Operator: [place] [address] XRay Report Signed Patient: NADIR HEREDIA MR#: [id number] : 1940 Acct:[id number] Age/Sex: 84 / M ADM Date: 09/08/24 Loc: ER Attending Dr: Ordering Physician: Akhil Dobson M.D. Date of Service: 09/08/24 Procedure(s): XR chest 1V Accession Number(s): [id number] cc: Van Sung M.D. ; Akhil Dobson M.D. [place] [id number] Patient Name: NADIR HEREDIA MRN: [id number] date: 1940 Sex: M Assigned Patient Location: ER Current Patient Loca tion: ER Accession/Order Numb er: [id number] Exam Date: 12:18 Report Date: 09/08/2024 13:01 [...] By: Yaneth Us M.D. Signed By: 09/08/24 1303 DD/ 1301 TD/TT: Relief Operator: PROF TARA Faust ([facility]) Reviewed date:10/30/2024 02:21:51 PM Interpretation: Performing Lab: Notes/Report: [facility] , Sodium 144 136-145 mmol/L [...] Performing Lab: see note ML - [facility] LB CBC AUTO DIFF Reviewed date:10/31/2024 12:23:54 PM Interpretation: Performing Lab: Notes/Report: [facility] , White Blood Count 11.9 4.0-11.0 10 [...] 3/uL Performing Lab: see note ML - [facility] PROF CHEM 8 ([facility] METB) Reviewed date:10/31/2024 12:23:54 PM Interpretation: Performing Lab: Notes/Report: [facility] , Sodium 140 136-145 mmol/L [...] mg/dL Performing Lab: see note ML - [facility] PROF CHEM 8 ([place] METB) Reviewed date:11/11/2024 08:52:42 PM Interpretation: Performing Lab: Notes/Report: [facility] , Sodium 140 136-145 mmol/L [...] 8.7 8.5-10.1 mg/dL Performing Lab: see note - [facility] ALBUMIN Reviewed date:12/24/2024 11:26:08 AM Interpretation: Performing Lab: Notes/Report: [facility] , Albumin Level 3.3 3.4-5.0 g/dL Performing Lab: see note ML - [facility] MAGNESIUM Reviewed date:12/24/2024 11:26:08 AM Interpretation: Performing Lab: Notes/Report: [facility] , Magnesium 2.2 1.8-2.4 mg/dL Performing Lab: see note - [facility] PHOSPHORUS Reviewed date:12/24/2024 11:26:08 AM Interpretation: Performing Lab: Notes/Report: [facility] , Phosphorus 3.7 2.6-4.7 mg/dL Performing Lab: see note ML - [facility] PROF CHEM 8 (BAS METB) Reviewed date:12/24/2024 11:26:08 AM Interpretation: Performing Lab: Notes/Report: [facility] , Sodium 142 136-145 mmol/L [...] 8.7 8.5-10.1 mg/dL Performing Lab: see note - [facility] URINE T PROTEIN CREAT RATIO Reviewed date:12/24/2024 11:26:08 AM Interpretation: Performing Lab: Notes/Report: [facility] , Total Protein Urine Random 14.3 <=11.9 mg/dL Creatinine Urine Random 52.46 20.00-30 0.00 mg/dL Protein Creatinine Ratio Urine 0.27 Performing Lab: see note ML - [facility] VITAMIN D 25 [place] Reviewed date:12/24/2024 11:26:08 AM Interpretation: Performing Lab: Notes/Report: [facility] , Vitamin D 19.7 <20 ng/mL Vit D deficient 20-<30 ng/mL Vit D insufficient 30-100 ng/mL Vit D sufficient >100 ng/mL Potential Toxicity Performing Lab: see note [facility] CBC AUTO DIFF Reviewed date:01/18/2025 09:02:22 PM Interpretation: Performing Lab: Notes/Report: [facility] , White Blood Count 9.0 4.0-11.0 10 [...] 3/uL Performing Lab: see note ML - [facility] LB White Blood Cells Reviewed date:01/25/2025 07:33:24 [...] see note LC - [facility] LB Result 1 Reviewed date:01/25/2025 07:33:24 PM Interpretation: Performing Lab: Notes/Report: [facility] , Result 1 See Below For Report Result 1 Few gram positive cocci Performing Lab: see note LC - [facility] LB Result 2 Reviewed date:01/25/2025 07:33:24 PM [...] 4 See Below For Report Result 4 EMPLOYEE ADVISER Performing Lab: see note LC - [facility] [...] WILL FOLLOW Lower Respiratory Culture Performed at: - [facility] Lower Respiratory Culture WILL FOLLOW Lower Respiratory Culture [address] [place], [place] [id number] Lower Respiratory Culture WILL FOLLOW Lower Respiratory Culture Vice President Payment: Asael Pressley PhD, Phone: [phone] Lower Respiratory Culture WILL FOLLOW Performing Lab: see note LC - [facility] LB SEE REPORT - Branch Chief Id information not found for OBX-specific music producer legend PROF 14(COMP METB) Reviewed date:02/14/2025 07:52:08 PM Interpretation: Performing Lab: Notes/Report: [facility] , Sodium 139 136-145 mmol/L [...] 1.0 Performing Lab: see note ML - [facility] Prothrombin Time INR Reviewed date:02/14/2025 07:52:08 PM Interpretation: Performing Lab: Notes/Report: [facility] , Prothrombin Time 10.7 9.0-11.6 sec INR 1.01 DESIRED INR: 2.0-3.0 CONDITIONS NOT LISTED BELOW 2.5-3.5 FOR PROSTHETIC HEART VALVE REPLACEMENT 2.5-3.5 RECURRENT THROMBOSIS Performing Lab: see note ML - [facility] Troponin I High Sensitivity Reviewed date:02/14/2025 07:52:08 PM Interpretation: Performing Lab: Notes/Report: [facility] , Troponin I High Sensitivity 15.2 4.0-76.1 pg/mL CUT-OFF POINTS HAVE BEEN ESTABLISHED BASED ON THE FOURTH UNIVERSAL DEFINITION OF MYOCARDIAL INFARCTION. THE UPPER REFERENCE LIMIT (URL) OF TROPONIN, DEFINED THE 99TH PERCENTILE OF cTnI DISTRIBUTION IN A REFERENCE POPULATION, HAS BEEN CONFIRMED THE DECISION THRESHOLD FOR [place] DIAGNOSIS. 99TH PERCENTILE = 76.2 PG/ML NOTE: HIGH-SENSITIVITY TROPONIN ASSAY IS NOT INTENDED TO BE USED IN ISOLATION BUT SHOULD BE INTERPRETED IN CONJUNCTION WITH OTHER DIAGNOSTIC AND CLINICAL INFORMATION. Performing Lab: see note ML - [facility] LB MR head/brain wo con Reviewed date:02/14/2025 07:52:09 PM Interpretation: Performing Lab: Notes/Report: Source Facility: [place] [address] Magnetic Resonance Report Signed Patient: NADIR HEREDIA MR#: [id number] : 1940 Acct:[id number] Age/Sex: 85 / M ADM Date: 02/14/25 Loc: MRI Attending Dr: Van Sung M.D. Ordering Physician: Van Sung M.D. Date of Service: 02/14/25 Procedure(s): MR head/brain wo con Accession Number(s): [id number] cc: Van Sung M.D. [place] [address] Patient Name: NADIR HEREDIA MRN: [id number] date: 1940 Sex: M Assigned Patient Location: MRI Current Patient Location: MRI Accession/Order Number: [id number] Exam Date: 02/14/2025 08:47 Report Date: 02/14/2025 [...] Radha Wright M.D.02/14/2025 9:20 AM Dictation Location: [place] [address] Electronically authenticated by: [id number] Y Date: 02/14/2025 09:20 Dictated By: Radha Wright M.D. Signed By: 02/14/25921 DD/ 9 TD/TT: Relief Operator: [place] [address] Magnetic Resonance Report Signed Patient: NADIR HEREDIA MR#: [id number] : 1940 Acct:[id number] Age/Sex: 85 / M ADM Date: 02/14/25 Loc: MRI Attending Dr: Gama Sung M.D. Ordering Physician: Van Sung M.D. Date of Service: 02/14/25 Procedure(s): MR head/brain wo con Accession Number(s): [id number] cc: Van Sung M.D. [place] [id number] Patient Name: NADIR HEREDIA MRN: [id number] date: 1940 Sex: M Assigned Patient Location: MRI Current Patient Loca tion: MRI Accession/Order Numb er: [id number] Exam Date: 02/14/2025 08:47 Report Date: 02/14/2025 [...] Radha Wright M.D.02/14/2025 9:20 AM Dictation Location: [place] [address] Electronically authenticated by: [id number] Y Date: 02/14/2025 09:20 Dictated By: Radha Wright M.D. Signed By: 02/14/25921 DD/ 9 TD/TT: Relief Operator: CBC AUTO DIFF Reviewed date:02/18/2025 03:43:48 PM Interpretation: Performing Lab: Notes/Report: [facility] , White Blood Count 8.2 [...] 10 3/uL Performing Lab: see note - [facility] PROF CHEM 8 ([facility] METB) Reviewed date:02/18/2025 03:43:48 PM Interpretation: Performing Lab: Notes/Report: [facility] , Sodium 140 136-145 mmol/L [...] mg/dL Performing Lab: see note ML - [facility] BNP Reviewed date:03/08/2025 07:11:26 PM Interpretation: Performing Lab: Notes/Report: [facility] , NT Pro B Type Natriuretic Pept 2783.0 <=1800.0 pg/mL RESULTS CALLED TO RAULITO ROBERTO RN Performing Lab: see note - [facility] PROF CHEM 8 ([facility] METB) Reviewed date:03/08/2025 07:11:26 PM Interpretation: Performing Lab: Notes/Report: [facility] , Sodium 139 136-145 mmol/L [...] 8.5-10.1 mg/dL Performing Lab: see note - [facility] LB Troponin I High Sensitivity Reviewed date:03/08/2025 07:11:26 PM Interpretation: Performing Lab: Notes/Report: [facility] , Troponin I High Sensitivity 15.5 4.0-76.1 pg/mL CUT-OFF POINTS HAVE BEEN ESTABLISHED BASED ON THE FOURTH UNIVERSAL DEFINITION OF MYOCARDIAL INFARCTION. THE UPPER REFERENCE LIMIT (URL) OF TROPONIN, DEFINED THE 99TH PERCENTILE OF cTnI DISTRIBUTION IN A REFERENCE POPULATION, HAS BEEN CONFIRMED THE DECISION THRESHOLD FOR [place] DIAGNOSIS. 99TH PERCENTILE = 76.2 PG/ML NOTE: HIGH-SENSITIVITY TROPONIN ASSAY IS NOT INTENDED TO BE USED IN ISOLATION BUT SHOULD BE INTERPRETED IN CONJUNCTION WITH OTHER DIAGNOSTIC AND CLINICAL INFORMATION. Performing Lab: see note - [facility] LB ECG 12 lead Reviewed date:03/08/2025 08:58:48 PM Interpretation: Performing Lab: Notes/Report: Source Facility: [place] [address] Electrocardiograph Report Signed Patient: NADIR HEREDIA MR#: [id number] : 1940 Acct:[id number] Age/Sex: 85 / M ADM Date: 03/08/25 Loc: ER Attending Dr: Ordering Physician: Akhil Dobson M.D. Date of Service: 03/08/25 Procedure(s): ECG 12 lead Accession Number(s): [id number] cc: [facility] Test Date: 2025-03-08 Pat Name: NADIR HEREDIA Department: Room: - Gender: Male National Expansion Recruiter: : 1940 Requested By: 1030 Order Number: [id number] Cristina MD: CLARIBEL PUGA M.D. Measurements Intervals [place] Rate: 70 P: -49422 AK: -28078 QRS: 48 QRSD: 100 T: 26 QT: 414 QTc: 435 Interpretive Statements 70869 Atrial fibrillation with aberrant conduction, or ventricular premature complexes 3113 Cannot rule out anterior myocardial infarction, probably old [address] depression, probably digitalis effect 9150 abnormal ECG Compared to ECG 02/14/2025 10:08:55 Ventricular premature complex(es) now present Aberrant conduction of supraventricular beat(s) now present Electronically Signed On 03-08-2025 20:43:48 EDT by CLARIBEL PUGA M.D. Dictated By: CLARIBEL PUGA Signed By: 03/08/252042 DD/ 4 TD/TT: Relief Operator: [place] [address] Electrocardiograph Report Signed Patient: NADIR HEREDIA MR#: [id number] : 1940 Acct:[id number] Age/Sex: 85 / M ADM Date: 03/08/25 Loc: ER Attending Dr: Ordering Physician: Akhil Dobson M.D. 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 Measurements Intervals [place] Rate: 70 P: -94999 AK: -71178 QRS: 48 QRSD: 100 T: 26 QT: 414 QTc: 435 Interpretive Statements 48715 Atrial fibrill ation with aberrant conduction, or ventricular premature complexes 3113 Cannot rule out anterior myocardial infarction, probably old [address] depression, probably digitalis effect 9150 abnormal ECG Compared to ECG 02/14/2025 10:08:55 Ventricular prematur e complex(es) now present Aberrant conduction of supraventricular beat(s) now present Electronically Rosenda d On 03-08-2025 20:43:48 EDT by CLARIBEL PUGA M.D. Dictated By: CLARIBEL PUGA Signed By: 03/08/252042 DD/ TD/TT: Relief Operator: PROF TARA Faust ([facility]) Reviewed date:04/15/2025 04:42:40 PM Interpretation: Performing Lab: Notes/Report: [facility] , Sodium 144 136-145 mmol/L Potassium 4.5 3.5-5.1 mmol/L Chloride 104 98-107 mmol/L Carbon Dioxide 26.8 21.0-32.0 mmol/L Anion Gap 17.7 Glucose 234 74-106 mg/dL Blood Urea Nitrogen 31.0 7.0-18.0 mg/dL Creatinine 1.80 0.70-1.30 mg/dL Estimated GFR ( Vira 44 >=60 mL/min/1.73m 2 Estimated GFR (Non- Coleen 36 >=60 mL/min/1.73m 2 BUN Creatinine Ratio 17.2 Calcium 8.9 8.5-10.1 mg/dL Performing Lab: see note ML - [facility] LB CBC AUTO DIFF (Not yet revie wed by provider) Interpretation: Performing Lab: Notes/Report: [facility] , White Blood Count 8.1 4.0-11.0 10 3/uL Red Blood Count 3.81 4.70-6.10 10 6/uL Hemoglobin 10.0 14.0-18.0 g/dL Hematocrit 32.0 42.0-54.0 % Mean Corpuscular Volume 84.0 80.0-94.0 fL Mean Corpuscular Hemoglobin 26.2 25.9-34.0 pg Mean Corpuscular HGB Conc 31.3 29.9-35.2 g/dL Red Cell Distribution Width 19.0 11.0-15.0 % Platelet Count 299 150-450 10 3/uL Mean Platelet Volume 10.2 9.5-13.5 fL Neutrophils Percent Auto 77.8 43.0-75.0 % Lymphocytes Percent Auto 8.6 20.5-60.0 % Monocytes Percent Auto 11.3 1.7-12.0 % Eosinophils Percent Auto 1.2 0.9-7.0 % Basophils Percent Auto 0.4 0.2-2.0 % Immature Granulocytes Pct Auto 0.7 0.0-0.5 % Neutrophils Absolute Auto 6.3 1.4-6.5 10 3/uL Lymphocytes Absolute Auto 0.7 1.2-3.8 10 3/uL Monocytes Absolute Auto 0.9 0.3-0.8 10 3/uL Eosinophils Absolute Auto 0.1 0.0-0.7 10 3/uL Basophils Absolute Auto 0.0 0.0-0.1 10 3/uL Immature Granulocytes Abs Auto 0.06 0.00-0.03 10 3/uL Performing Lab: see note ML - [facility] LB PROF 14(COMP METB) (Not yet reviewed by provider) Interpretation: Performing Lab: Notes/Report: [facility] , Sodium 139 136-145 mmol/L Potassium 4.9 3.5-5.1 mmol/L Chloride 102 98-107 mmol/L Carbon Dioxide 27.8 21.0-32.0 mmol/L Anion Gap 14.1 Glucose 175 74-106 mg/dL Blood Urea Nitrogen 27.0 7.0-18.0 mg/dL Creatinine 1.80 0.70-1.30 mg/dL Estimated GFR ( Vira 44 >=60 mL/min/1.73m 2 Estimated GFR (Non- Coleen 36 >=60 mL/min/1.73m 2 BUN Creatinine Ratio 15.0 Calcium 9.2 8.5-10.1 mg/dL Bilirubin Total 0.4 0.2-1.0 mg/dL Aspartate Amino Transferase 14 15-37 U/L Alanine Aminotransferase 17 16-63 U/L Alkaline Phosphatase 92 46-116 U/L Total Protein 6.8 6.4-8.2 g/dL Albumin Level 2.9 3.4-5.0 g/dL Globulin 3.9 Albumin Globulin Ratio 0.7 Performing Lab: see note ML - [facility] Troponin I High Sensitivity (Not yet reviewed by provider) Interpretation: Performing Lab: Notes/Report: [facility] , Troponin I High Sensitivity 17.0 4.0-76.1 pg/mL CUT-OFF POINTS HAVE BEEN ESTABLISHED BASED ON THE FOURTH UNIVERSAL DEFINITION OF MYOCARDIAL INFARCTION. THE UPPER REFERENCE LIMIT (URL) OF TROPONIN, DEFINED THE 99TH PERCENTILE OF cTnI DISTRIBUTION IN A REFERENCE POPULATION, HAS BEEN CONFIRMED THE DECISION THRESHOLD FOR [place] DIAGNOSIS. 99TH PERCENTILE = 76.2 PG/ML NOTE: HIGH-SENSITIVITY TROPONIN ASSAY IS NOT INTENDED TO BE USED IN ISOLATION BUT SHOULD BE INTERPRETED IN CONJUNCTION WITH OTHER DIAGNOSTIC AND CLINICAL INFORMATION. Performing Lab: see note ML - [facility] CA echo doppler complete Reviewed date:02/15/2025 05:24:30 PM Interpretation: Performing Lab: Notes/Report: Source Facility: [place] [address] [place] [address] Cardiology Report Signed Patient: NADIR HEREDIA MR#: [id number] : 1940 Acct:[id number] Age/Sex: 85 / M ADM Date: 02/14/25 Loc: MS 203-[address]: Van Sung M.D. Ordering Physician: Van Sung M.D. Date of Service: 02/15/25 Procedure(s): CA echo doppler complete Accession Number(s): [id number] cc: Van Sung M.D. Patient Name: NADIR HEREDIA MR#: [id number] : 1940 Exam Date: 02/15/2025 Ordering Doctor: [...] Faulkner M.D. Signed By: 02/15/25 1632 DD/ 1631 TD/TT: Relief Operator: [place] [address] Cardiology Report Signed Patient: NADIR HEREDIA MR#: [id number] : 1940 Acct:[id number] Age/Sex: 85 / M ADM Date: 02/14/25 Loc: MS 203-[address]: Gama Sung M.D. Ordering Physician: Van Sung M.D. Date of Service: 02/15/25 Procedure(s): CA ech o doppler complete Accession Number(s): [id number] cc: Van Sung M.D. Patient Name: NADIR HEREDIA MR#: [id number] : 1940 Exam Date: 02/15/2025 Ordering Doctor: [...] Faulkner M.D. Signed By: 02/15/25 1632 DD/ 1631 TD/TT: Relief Operator: PROF PACHECO 8 ([facility]) Reviewed date:02/15/2025 05:24:30 PM Interpretation: Performing Lab: Notes/Report: [facility] , Sodium 141 136-145 mmol/L Potassium 3.8 [...] mg/dL Performing Lab: see note ML - [facility] LB CBC AUTO DIFF Reviewed date:02/15/2025 05:24:30 PM Interpretation: Performing Lab: Notes/Report: [facility] , White Blood Count 5.4 4.0-11.0 10 [...] Performing Lab: see note ML - [facility] LB ECG 12 lead Reviewed date:02/14/2025 07:52:08 PM Interpretation: Performing Lab: Notes/Report: Source Facility: [facility] [place] [address] [place] [address] Electrocardiograph Report Signed Patient: NADIR HEREDIA MR#: [id number] : 1940 Acct:[id number] Age/Sex: 85 / M ADM Date: 02/14/25 Loc: MS 203-[address]: Van Sung M.D. 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 Measurements Intervals [place] Rate: 75 P: -11518 AK: -72879 QRS: -60 QRSD: 100 T: 68 QT: [...] Signed By: 02/14/25 1728 DD/ 1008 TD/TT: Relief Operator: [place] [address] Electrocardiograph Report Signed Patient: NADIR HEREDIA MR#: [id number] : 1940 Acct:[id number] Age/Sex: 85 / M ADM Date: 02/14/25 Loc: MS 203-[address]: Gama Sung M.D. 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 Measurements Intervals [place] Rate: 75 P: -85775 AK: -89029 QRS: -60 QRSD: 100 T: 68 QT: [...] Signed By: 02/14/25 1728 DD/ 1008 TD/TT: Relief Operator: UA (CLEAN or CATCH) MECHANICAL ADJUSTER or M ICRO IF IND. Reviewed date:02/14/2025 07:52:08 PM Interpretation: Performing Lab: Notes/Report: [facility] , Color Urine LT. YELLOW YELLOW Clarity Urine CLEAR CLEAR Specific [place] Urine 1.010 1.005-1.025 pH Urine 7.0 5.0-9.0 Protein Urine NEGATIVE NEG/TRACE mg/dL Glucose Urine UA >=1000 NEGATIVE mg/dL Bilirubin Urine NEGATIVE NEGATIVE Ketones Urine NEGATIVE NEGATIVE mg/dL Blood Urine NEGATIVE NEGATIVE Nitrite Urine NEGATIVE NEGATIVE Urobilinogen Urine 0.2 0.2-1.0 EU/dL Leukocyte Esterase Urine NEGATIVE NEGATIVE Urine Microscopic Indicated NO Performing Lab: see note ML - [facility] LB MAGNESIUM Reviewed date:02/14/2025 07:52:08 PM Interpretation: Performing Lab: Notes/Report: [facility] , Magnesium 2.0 1.8-2.4 mg/dL Performing Lab: see note ML - [facility] LB GLYCOHEMOGLOBIN A1C Reviewed date:02/14/2025 07:52:08 PM Interpretation: Performing Lab: Notes/Report: [facility] , Glycohemoglobin A1C 11.1 4.5-6.2 % ADA RECOMMENDED LIMIT 4.0 - 6.0 ADA THERAPEUTIC TARGET < 7.0 ACTION SUGGESTED > 7.0 Estimated Average Glucose 272 Performing Lab: see note ML - [facility] LB DIRECT LDL Reviewed date:02/14/2025 07:52:08 PM Interpretation: Performing Lab: Notes/Report: [facility] , LDL Cholesterol Direct 120 <100 mg/dl OPTIMAL 100-129 mg/dl NEAR OR ABOVE OPTIMAL 130-159 mg/dl BORDERLINE HIGH 160-189 mg/dl HIGH >190 mg/dl VERY HIGH Performing Lab: see note ML - [facility] LB CBC AUTO DIFF Reviewed date:02/14/2025 07:52:08 PM Interpretation: Performing Lab: Notes/Report: [facility] , White Blood Count 8.1 [...] Performing Lab: see note ML - [facility] LB BNP Reviewed date:02/14/2025 07:52:08 PM Interpretation: Performing Lab: Notes/Report: [facility] , NT Pro B Type Natriuretic Pept 1616.0 <=1800.0 pg/mL Performing Lab: see note ML - [facility] LB TSH Reviewed date:01/18/2025 09:02:22 PM Interpretation: Performing Lab: Notes/Report: [facility] , Thyroid Stimulating Hormone 1.472 0.358-3.740 uIU/mL Performing Lab: see note ML - [facility] LB T4 Reviewed date:01/18/2025 09:02:22 PM Interpretation: Performing Lab: Notes/Report: [facility] , T4 Thyroxine 7.00 4.50-12.10 ug/dL Performing Lab: see note - [facility] LB PROF 14(COMP METB) Reviewed date:01/18/2025 09:02:22 PM Interpretation: Performing Lab: Notes/Report: [facility] , Sodium 142 136-145 mmol/L [...] Performing Lab: see note ML - [facility] LB FREE T3 Reviewed date:01/18/2025 09:02:22 PM Interpretation: Performing Lab: Notes/Report: [facility] , Free T3 2.15 2.18-3.98 pg/mL Performing Lab: see note ML - [facility] LB HEMOGLOBIN Reviewed date:12/24/2024 11:26:08 AM Interpretation: Performing Lab: Notes/Report: [facility] , Hemoglobin 12.1 14.0-18.0 g/dL Performing Lab: see note ML - [facility] LB CBC AUTO DIFF Reviewed date:10/30/2024 02:21:51 PM Interpretation: Performing Lab: Notes/Report: [facility] , White Blood Count 14.0 [...] Performing Lab: see note ML - [facility] LB Type and Screen Reviewed date:10/29/2024 08:20:36 PM Interpretation: Performing Lab: Notes/Report: [facility] , Blood Type A Positive Antibody Screen NEGATIVE CBC no Diff (Hemogram) Reviewed date:10/29/2024 08:20:36 PM Interpretation: Performing Lab: Notes/Report: [facility] , White Blood Count 15.4 [...] 11.6 9.5-13.5 fL Performing Lab: see note - [facility] PROF CHEM 8 (BAS METB) Reviewed date:10/29/2024 08:20:36 PM Interpretation: Performing Lab: Notes/Report: [facility] , Sodium 142 136-145 mmol/L [...] 8.4 8.5-10.1 mg/dL Performing Lab: see note - [facility] LB Prothrombin Time INR Reviewed date:10/29/2024 08:20:36 PM Interpretation: Performing Lab: Notes/Report: [facility] , Prothrombin Time 10.5 9.0-11.6 sec INR 0.99 DESIRED INR: 2.0-3.0 CONDITIONS NOT LISTED BELOW 2.5-3.5 FOR PROSTHETIC HEART VALVE REPLACEMENT 2.5-3.5 RECURRENT THROMBOSIS Performing Lab: see note - [facility] LB PROF 14(COMP METB) Reviewed date:10/29/2024 08:20:36 PM Interpretation: Performing Lab: Notes/Report: [facility] , Sodium 137 136-145 mmol/L [...] 0.8 Performing Lab: see note ML - [facility] LB CBC AUTO DIFF Reviewed date:10/29/2024 08:20:36 PM Interpretation: Performing Lab: Notes/Report: [facility] , White Blood Count 7.5 4.0-11.0 10 [...] Performing Lab: see note ML - [facility] CA echo doppler complete Reviewed date:10/18/2024 07:39:53 PM Interpretation: Performing Lab: Notes/Report: Source Facility: [place] [address] Cardiology Report Signed Patient: NADIR HEREDIA MR#: [id number] : 1940 Acct:[id number] Age/Sex: 84 / M ADM Date: 10/18/24 Loc: CARD Attending Dr: CLARIBEL PUGA Ordering Physician: CLARIBEL PUGA Date of Service: 10/18/24 Procedure(s): [place] echo doppler complete Accession Number(s): [id number] cc: Van Sung M.D.; CLARIBEL PUGA Patient Name: NADIR HEREDIA MR#: [id number] : 1940 Exam Date: 10/18/2024 Ordering Doctor: [...] CLARIBEL PUGA Signed By: 10/18/24 1426 DD/ 142 TD/TT: Relief Operator: [place] [address] Cardiology Report Signed Patient: NADIR HEREDIA MR#: [id number] : 1940 Acct:[id number] Age/Sex: 84 / M ADM Date: 10/18/24 Loc: CARD Attending Dr: CLARIBEL PUGA Ordering Physician: CLARIBEL PUGA Date of Service: 10/18/24 Procedure(s): CA ech o doppler complete Accession Number(s): [id number] cc: Van Sung M.D. ; CLARIBEL PUGA Patient Name: NADIR HEREDIA MR#: [id number] : 1940 Exam Date: 10/18/2024 Ordering Doctor: [...] Signed By: 10/18/24 1426 DD/ 1425 TD/TT: Relief Operator: XR chest 1V Reviewed date:08/16/2024 09:49:03 PM Interpretation: Performing Lab: Notes/Report: Source Facility: [place] [address] XRay Report Signed Patient: NADIR HEREDIA MR#: [id number] : 1940 Acct:[id number] Age/Sex: 84 / M ADM Date: 08/16/24 Loc: ER Attending Dr: Ordering Physician: Lotus Ace D.O. Date of Service: 08/16/24 Procedure(s): XR chest 1V Accession Number(s): [id number] cc: Van Sung M.D.; Lotus Ace D.O. [place] [address] Patient Name: NADIR HEREDIA MRN: [id number] date: 1940 Sex: M Assigned Patient Location: ER Current Patient Location: ER Accession/Order Number: [id number] Exam Date: 08/16/2024 09:10 Report Date: 08/16/2024 [...] M.D. Signed By: 08/16/24933 DD/ 0 TD/TT: Relief Operator: [place] [address] XRay Report Signed Patient: NADIR HEREDIA MR#: [id number] : 1940 Acct:[id number] Age/Sex: 84 / M ADM Date: 08/16/24 Loc: ER Attending Dr: Ordering Physician: Lotus Ace D.O. Date of Service: 08/16/24 Procedure(s): XR chest 1V Accession Number(s): [id number] cc: Van Sung M.D. ; Lotus Ace D.O. [place] [address] Patient Name: NADIR HEREDIA MRN: [id number] date: 1940 Sex: M Assigned Patient Location: ER Current Patient Loca tion: ER Accession/Order Numb er: [id number] Exam Date: 09:10 Report Date: 08/16/2024 09:31 [...] M.D. Signed By: 08/16/24933 DD/ 0 TD/TT: Relief Operator: Prothrombin Time INR Reviewed date:08/16/2024 09:49:03 PM Interpretation: Performing Lab: Notes/Report: [facility] , Prothrombin Time 10.5 9.0-11.6 sec INR 0.99 DESIRED INR: 2.0-3.0 CONDITIONS NOT LISTED BELOW 2.5-3.5 FOR PROSTHETIC HEART VALVE REPLACEMENT 2.5-3.5 RECURRENT THROMBOSIS Performing Lab: see note ML - [facility] LB Blood Culture 2 Reviewed date:08/21/2024 08:32:56 PM Interpretation: Performing Lab: Notes/Report: [facility] , Blood Culture 2 See Below For Report Blood Culture 2 NG5D NO GROWTH AT 5 DAYS. Performing Lab: see note ML - [facility] LB Blood Culture 1 Reviewed date:08/21/2024 08:32:56 PM Interpretation: Performing Lab: Notes/Report: [facility] , Blood Culture 1 See Below For Report Blood Culture 1 NG5D NO GROWTH AT 5 DAYS. Performing Lab: see note ML - [facility] LB UA (CLEAN or CATCH) MECHANICAL ADJUSTER or M ICRO IF IND. Reviewed date:08/16/2024 09:49:03 PM Interpretation: Performing Lab: Notes/Report: [facility] , Color Urine LT. YELLOW YELLOW Clarity Urine CLEAR CLEAR Specific [place] Urine 1.010 1.005-1.025 pH Urine 7.0 5.0-9.0 Protein Urine NEGATIVE NEG/TRACE mg/dL Glucose Urine UA >=1000 NEGATIVE mg/dL Bilirubin Urine NEGATIVE NEGATIVE Ketones Urine NEGATIVE NEGATIVE mg/dL Blood Urine NEGATIVE NEGATIVE Nitrite Urine NEGATIVE NEGATIVE Urobilinogen Urine 0.2 0.2-1.0 EU/dL Leukocyte Esterase Urine NEGATIVE NEGATIVE Urine Microscopic Indicated NO Performing Lab: see note ML - [facility] LB CBC AUTO DIFF Reviewed date:08/16/2024 09:49:03 PM Interpretation: Performing Lab: Notes/Report: [facility] , White Blood Count 9.6 [...] 3/uL Performing Lab: see note ML - [facility] LB VITAMIN D 25 OH Reviewed date:06/19/2024 07:43:22 PM Interpretation: Performing Lab: Notes/Report: [facility] , Vitamin D 19.7 <20 ng/mL Vit D deficient 20-<30 ng/mL Vit D insufficient 30-100 ng/mL Vit D sufficient >100 ng/mL Potential Toxicity Performing Lab: see note ML - [facility] LB URINE T PROTEIN CREAT RATIO Reviewed date:06/19/2024 07:43:22 PM Interpretation: Performing Lab: Notes/Report: [facility] , Total Protein Urine Random 7.8 <=11.9 mg/dL Creatinine Urine Random 53.15 20.00-30 0.00 mg/dL Protein Creatinine Ratio Urine 0.15 Performing Lab: see note ML - [facility] PROF CHEM 8 (BAS METB) Reviewed date:06/19/2024 07:43:22 PM Interpretation: Performing Lab: Notes/Report: [facility] , Sodium 145 136-145 mmol/L Potassium 4.1 3.5-5.1 mmol/L Chloride 107 98-107 mmol/L Carbon Dioxide 29.8 21.0-32.0 mmol/L Anion Gap 12.3 Glucose 226 74-106 mg/dL Blood Urea Nitrogen 32.0 7.0-18.0 mg/dL Creatinine 1.62 0.70-1.30 mg/dL Estimated GFR ( Vira 49 >=60 Estimated GFR (Non- Coleen 41 >=60 BUN Creatinine Ratio 19.8 Calcium 9.2 8.5-10.1 mg/dL Performing Lab: see note ML - [facility] LB PHOSPHORUS Reviewed date:06/19/2024 07:43:22 PM Interpretation: Performing Lab: Notes/Report: [facility] , Phosphorus 3.9 2.6-4.7 mg/dL Performing Lab: see note ML - [facility] LB MAGNESIUM Reviewed date:06/19/2024 07:43:22 PM Interpretation: Performing Lab: Notes/Report: [facility] , Magnesium 2.1 1.8-2.4 mg/dL Performing Lab: see note ML - [facility] LB ALBUMIN Reviewed date:06/19/2024 07:43:22 PM Interpretation: Performing Lab: Notes/Report: [facility] , Albumin Level 3.4 3.4-5.0 g/dL Performing Lab: see note ML - [facility] LB URINE T PROTEIN CREAT RATIO Reviewed date:05/23/2024 03:36:41 PM Interpretation: Performing Lab: Notes/Report: [facility] , Total Protein Urine Random <6.0 <=11.9 mg/dL Creatinine Urine Random 14.95 20.00-30 0.00 mg/dL Protein Creatinine Ratio Urine 0.40 Performing Lab: see note ML - [facility] LB PROF CHEM 8 (BAS METB) Reviewed date:05/23/2024 03:36:41 PM Interpretation: Performing Lab: Notes/Report: [facility] , Sodium 144 136-145 mmol/L Potassium 4.0 3.5-5.1 mmol/L Chloride 105 98-107 mmol/L Carbon Dioxide 31.6 21.0-32.0 mmol/L Anion Gap 11.4 Glucose 228 74-106 mg/dL Blood Urea Nitrogen 24.0 7.0-18.0 mg/dL Creatinine 1.51 0.70-1.30 mg/dL Estimated GFR ( Vira 54 >=60 Estimated GFR (Non- Coleen 44 >=60 BUN Creatinine Ratio 15.9 Calcium 8.8 8.5-10.1 mg/dL Performing Lab: see note ML - [facility] LB PHOSPHORUS Reviewed date:05/23/2024 03:36:41 PM Interpretation: Performing Lab: Notes/Report: [facility] , Phosphorus 4.1 2.6-4.7 mg/dL Performing Lab: see note ML - [facility] LB MAGNESIUM Reviewed date:05/23/2024 03:36:41 PM Interpretation: Performing Lab: Notes/Report: [facility] , Magnesium 2.2 1.8-2.4 mg/dL Performing Lab: see note ML - [facility] LB HEMOGLOBIN Reviewed date:05/23/2024 03:36:41 PM Interpretation: Performing Lab: Notes/Report: [facility] , Hemoglobin 15.0 14.0-18.0 g/dL Performing Lab: see note ML - [facility] LB GLYCOHEMOGLOBIN A1C Reviewed date:05/23/2024 03:36:41 PM Interpretation: Performing Lab: Notes/Report: [facility] , Glycohemoglobin A1C 8.3 4.5-6.2 % ADA RECOMMENDED LIMIT 4.0 - 6.0 ADA THERAPEUTIC TARGET < 7.0 ACTION SUGGESTED > 7.0 Estimated Average Glucose 192 Performing Lab: see note ML - [facility] LB ALBUMIN Reviewed date:05/23/2024 03:36:41 PM Interpretation: Performing Lab: Notes/Report: [facility] , Albumin Level 3.3 3.4-5.0 g/dL Performing Lab: see note ML - [facility] LB Troponin I High Sensitivity Reviewed date:03/08/2025 07:11:26 PM Interpretation: Performing Lab: Notes/Report: [facility] , Troponin I High Sensitivity 13.2 4.0-76.1 pg/mL CUT-OFF POINTS HAVE BEEN ESTABLISHED BASED ON THE FOURTH UNIVERSAL DEFINITION OF MYOCARDIAL INFARCTION. THE UPPER REFERENCE LIMIT (URL) OF TROPONIN, DEFINED THE 99TH PERCENTILE OF cTnI DISTRIBUTION IN A REFERENCE POPULATION, HAS BEEN CONFIRMED THE DECISION THRESHOLD FOR [place] DIAGNOSIS. 99TH PERCENTILE = 76.2 PG/ML NOTE: HIGH-SENSITIVITY TROPONIN ASSAY IS NOT INTENDED TO BE USED IN ISOLATION BUT SHOULD BE INTERPRETED IN CONJUNCTION WITH OTHER DIAGNOSTIC AND CLINICAL INFORMATION. Performing Lab: see note ML - [facility] LB CBC AUTO DIFF Reviewed date:03/08/2025 07:11:26 PM Interpretation: Performing Lab: Notes/Report: [facility] , White Blood Count 7.8 [...] Performing Lab: see note ML - [facility] Reason For Referral No Information Medications Medication SIG (Take, Route, Frequency, Duration) Notes Start Date End Date Status ALPRAZolam 0.25 MG 1 tablet F41.9 Orall y Twice a day 08/15/2024 Active Aspirin 81 81 MG 1 tablet Orally Once a day Active Jardiance 25 MG 1 tablet Orally Once a day Active Klor-Con M20 20 MEQ TAKE 1 TABLET BY DAVID TH TWICE A DAY for 90 Active Pioglitazone HCl 45 MG 1 tablet Orally O nce a day for 90 days Active Align Prebiotic-Probiotic 5-1.25 MG-GM 1 capsule Orally once daily Active Primidone 50 MG 1 tablet Orally twic e a day for 90 days Active Omeprazole 20 MG TAKE 2 CAPSULES BY M OUTH DAILY for 90 Active Albuterol Sulfate (2.5 MG/3ML) 0.083% 3 mL as needed Inhalation every 6 hrs Active Ondansetron 4 MG 1 tablet on the tong ue and allow to dissolve Orally Q 6 hours PRN for 3 10/01/2023 Active metFORMIN HCl 500 MG TAKE 1 TABLET BY MO [facility] EVERY DAY FOR 30 DAYS for 30 [...] 4 MG TAKE 2 TABLETS BY MO DCH EVERY DAY for 90 days Active Escitalopram Oxalate 5 MG TAKE 1 TABLET BY MOUTH EVERY DAY FOR 30 DAYS for 90 Active Ezetimibe 10 MG TAKE 1 TABLET BY DAVID ONCE DAILY for 90 Active Diabetic Shoe [...] Administration Date Status Comme nts Flu, Fluad (5637-1338) (08007) 65 yrs+, single-dose syringe IM Intramuscular 08/20/2023 Administered Flu, Fluad (83443) 65 yrs and older, single-dose syringe IM [...] Risk Notes Problem Dermatochalasis of both eyelids (36520551952082527 ) Dermatochalasis of both eyelids (374.87) Active confirmed 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 Problem Overweight (481328703) Overweight (E66.3) Active confirmed Problem Generalized anxiety disorder (54249719) Generalized anxiety disorder (F41.1) Active confirmed Problem 96803771 Atherosclerotic heart disease of [place] coronary artery without angina pectoris (I25.10) Active confirmed Problem 50344580 Nonrheumatic aortic (valve) stenosis (I35.0) Active confirmed Problem Aortic valve disorder (6015233) Other nonrheumatic aortic valve disorders (I35.8) Active confirmed Problem 846755073 Acute diastolic (congestive) heart failure (I50.31) Active confirmed Problem Acute combined systolic and diastolic heart failure (229696594969971) 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 confirmed Problem 86053684 Polyp of colon (K63.5) Active confirmed Problem Chronic kidney disease stage 3 (disorder) (584387043) Chronic kidney disease, stage 3 (moderate) (N18.3) Active confirmed Problem Balanitis (30708725) Balanitis (N48.1) Active confirmed Problem 13060935 Bradycardia, unspecified (R00.1) Active confirmed Problem Shortness of breath (504128866) Shortness of breath (R06.02) Active confirmed Problem 513419240 Blister (nonthermal), unspecified lower leg, initial encounter (S80.829A) Active confirmed Problem Atrial fibrillation (06557021) Atrial fibrillation (I48.91) Active confirmed Problem Hyperlipidemia (63462768) Hyperlipidemia (E78.5) Active confirmed Problem Aortic regurgitation (36143394) Aortic regurgitation (I35.1) Active confirmed Problem Congestive heart failure (83339569) CHF (congestive heart failure) (I50.9) Active confirmed Problem Asthma (685693158) Asthma (J45.909) Active conf irmed Problem Cervical radiculopathy (19934535) Cervical radiculopathy (M54.12) Active confirmed Problem Tricuspid regurgitation (747112917) Tricuspid regurgitation (I07.1) Active confirmed Problem Aortic valve disorder (2752259) Aortic stenosis (I35.0) Active confirmed Problem Atrial fibrillation (disorder) (06480956) Afib (I48.91) Active confirmed Problem Edema (57692744) Edema (R60.9) Active confirmed Problem Depression (885712438) Depression (F32.9) Active confirmed Problem Peripheral neuropathy (696269466) Peripheral neuropathy (G62.9) Active confirmed Problem Vitamin B12 deficiency (864179598) Vitamin B12 deficiency (E53.8) Active confirmed Problem Sleep apnea (08678677) Sleep apnea (G47.30) Active confirmed Problem CVA - Cerebrovascular accident (769889172) CVA (cerebral vascular accident) (I63.9) Active confirmed Problem Osteoarthritis of knee (988859320) Osteoarthritis of knee (M17.9) Active confirmed Problem Congestive heart failure (07136224) Congestive heart failure (I50.9) Active confirmed Problem Migraine (66042479) Migraine (G43.909) Active confirmed Problem Irritable bowel syndrome (18316328) IBS (irritable bowel syndrome) (K58.9) Active confirmed Problem Peptic ulcer (32969934) Peptic ulcer (K27.9) Active confirmed Problem Generalized anxiety disorder (29118071) MERA (generalized anxiety disorder) (F41.1) Active confirmed Problem Diabetes mellitus type 2 (disorder) (07356890) DM2 (diabetes mellitus, type 2) (E11.9) Active confirmed Problem Acute bronchitis (77204376) Acute bronchitis (J20.9) Active confirmed Problem Cervical spondylosis with myelopathy (M47.12) Active confirmed Problem Pulmonary edema (32356830) Pulmonary edema (J81.1) Active confirmed Problem Diverticulitis (78956243) Diverticulitis (K57.92) Active confirmed Problem Diabetic neuropathy (851700883) Diabetic neuropathy (E11.40) Active confirmed Problem Acute systolic heart failure (284772366) Acute systolic heart failure (I50.21) Active confirmed Problem Benign prostatic hyperplasia (465441384) Benign prostatic hyperplasia (N40.0) Active confirmed Problem Dyshidrotic eczema (585169316) Dyshidrotic eczema (L30.1) Active confirmed Problem Iron deficiency anemia (73931303) Anemia, iron deficiency (D50.9) Active confirmed Problem Ventricular hypertrophy (195258188) Ventricular hypertrophy (I51.7) Active confirmed Problem Hemorrhoid (68344754) Hemorrhoid (K64.9) Active confirmed Problem Labyrinthitis (99136692) Labyrinthitis (H83.09) Active confirmed Problem Altered mental status (312924987) Altered mental status (R41.82) Active confirmed Problem Liver mass (077361286) Liver mass (R16.0) Active confirmed Problem Electrolyte imbalance (922052121) Electrolyte imbalance (E87.8) Active confirmed Problem Altered mental status (302035112) Altered mental state (R41.82) Active confirmed Problem Foot callus (530136735) Foot callus (L84) Active confirmed Problem Left lower lobe pneumonia (749225959) Left lower lobe pneumonia (J18.9) Active confirmed Problem Dermatochalasis (877100193) Dermatochalasis (H02.839) Active confirmed Problem Acute diastolic heart failure (400448675) Acute diastolic heart failure (I50.31) Active confirmed Problem 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) Active confirmed Problem Urinary tract obstruction (8241678) Urinary obstruction (N13.9) Active confirmed Problem Cardiomegaly (5539541) Atrial enlargement, left (I51.7) Active confirmed Problem Generalized anxiety disorder (02607884) Anxiety neurosis (F41.1) Active confirmed Problem Tubulovillous adenoma of colon (6429208254) 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) Active confirmed Problem Essential hypertension (10766456) Essential Hypertension (I10) Active confirmed Problem 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 Problem Essential hypertension (89476893) BP (high blood pressure) (I10) Active confirmed Problem History of cardioversion (64196791781353) History of cardioversion (Z98.890) Active confirmed Problem Degenerative disorder of macula (193740141) Macular degeneration, 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) Active confirmed Problem Deep vein thrombosis (DVT) of non-extremity vein, unspecified chronicity (I82.90) Active confirmed Problem Chronic kidney disease stage 2 (292415260) Chronic kidney disease (CKD), stage 2 (mild) (N18.2) Active confirmed Problem Pulmonary hypertension (40615732) Pulmonary hypertension (I27.20) Active confirmed Problem Lump in right breast (07054122384787586 ) Unspecified lump in the right breast, unspecified quadrant (N63.10) Active confirmed Problem Abrasion of skin (44225425) Skin abrasion (T14.8XXA) Active confirmed Problem Liver function tests abnormal (933152412) Liver function test abnormality (R94.5) Active confirmed Problem Type II diabetes mellitus without complication (117819921) Diabetes (E11.9) Active confirmed Problem Myocardial infarct (88537614) Myocardial infarct (I21.9) Active confirmed Problem Diabetes mellitus (95771620) Diabetes mellitus (E11.9) Active confirmed Problem Resting tremor (53262283) Resting tremor (G25.2) Active confirmed Problem COVID-19 (494949821) COVID-19 (U07.1) Active confirmed Problem 997588535 Chronic kidney disease, stage 3 unspecified (N18.30) Active confirmed Problem Cardiomegaly (1679802) Atrial enlargement, right (I51.7) Active confirmed Problem 976966288 Other pericardia l effusion (noninflammatory) (I31.39) Active confirmed Vital Signs Oximetry 90 % 04/06/2025 Blood pressure diastolic 80 mm Hg 04/06/2025 Height 70 in 04/06/2025 Blood pressure systolic 152 mm Hg 04/06/2025 Weight 186.8 lbs 04/06/2025 BMI 26.8 kg/m2 04/06/2025 Encounters Encounter Location Date Provider Diagnosis [facility] [address] [place] [address] 01/18/2025 Erik Hoy Urinary frequency R3 5.0 ; Edema R60.9 ; Essential Hypertension I10 and Diabetes mellitus E11.9 [facility] [address] [place] [address] 03/26/2025 Erik Hoy Vitamin B12 deficien cy E53.8 [facility] [address] [place] [address] 07/07/2024 Erik Hoy Vitamin B12 deficien cy E53.8 [facility] [address] [place] [address] 08/07/2024 Erik Hoy Vitamin B12 deficien cy E53.8 [facility] [address] [place] [address] 11/17/2024 Erik Hoy Vitamin B12 deficien cy E53.8 [facility] [address] [place] [address] 12/18/2024 Eirk Hoy Vitamin B12 deficien cy E53.8 [facility] [address] [place] [address] 01/15/2025 Erik Hoy Vitamin B12 deficien cy E53.8 [facility] [address] [place] [address] 06/02/2024 Erik Hoy Vitamin B12 deficien cy E53.8 [facility] [address] [place] [address] 02/22/2025 Erik Hoy Vitamin B12 deficien cy E53.8 ; Hyperlipidemia E78.5 ; Atrial fibrillation I48.91 ; CVA (cerebral vascular accident) I63.9 and Diabetes mellitus E11.9 [facility] [address] [place] [address] 03/14/2025 Erik Hoy Atrial fibrillation I48.91 ; Hyperlipidemia E78.5 and Pulmonary hypertension I27.20 [facility] [address] [place] [address] 04/06/2025 Erik Hoy Atrial fibrillation I48.91 and CHF (congestive heart failure) I50.9 [facility] [address] [place] [address] 08/15/2024 Erik Hoy Benign prostatic hyperplasia N40.0 ; Anxiety neurosis F41.1 ; Essential Hypertension I10 and Resting tremor G25.2 [facility] [address] [place] [address] 08/23/2024 Erik Hoy Atrial fibrillation I48.91 ; Diabetic neuropathy E11.40 ; Essential Hypertension I10 ; Resting tremor G25.2 and Encounter for immunization Z23 [facility] [address] [place] [address] 09/22/2024 Erik Hoy Diabetic neuropathy E11.40 ; Essential Hypertension I10 ; Resting tremor G25.2 and Anxiety neurosis F41.1 [facility] [address] [place] [address] 04/23/2025 Erik [facility] [address] [place] [address] 05/08/2025 Erik Kerry CHF (congestive hear t failure) I50.9 ; Edema R60.9 ; Chronic kidney disease, stage 3 unspecified N18.30 and Urinary obstruction N13.9 [facility] [address] [place] [address] 05/08/2025 Erik [facility] [address] [place] [address] 02/13/2025 Erik [facility] [address] [place] [address] 02/16/2025 Erik [facility] [address] [place] [address] 02/22/2025 Erik [facility] [address] [place] [address] 03/16/2025 Erik Sung [facility] [address] [place] [address] 03/16/2025 Erik Sung [facility] [address] [place] [address] 04/10/2025 Erik Sung Atrial fibrillation I48.91 [facility] [address] [place] [address] 12/24/2024 Erik Kerrmohan [facility] [address] [place] [address] 01/17/2025 Erik Pineda [facility] [address] [place] [address] 01/18/2025 Erik mohan [facility] [address] [place] [address] 01/18/2025 Erik Hoy Atrial fibrillation I48.91 [facility] [address] [place] [address] 01/29/2025 Erik Kerrmohan [facility] [address] [place] [address] 02/13/2025 Erik Sung Altered mental statu s R41.82 [facility] [address] [place] [address] 07/07/2024 Erik Sung [facility] [address] [place] [address] 08/15/2024 Erik Pineda [facility] [address] [place] [address] 08/16/2024 Erik Sung [facility] [address] [place] [address] 08/23/2024 Erik Hoy Atrial fibrillation I48.91 [facility] [address] [place] [address] 08/25/2024 Erik Hoy Atrial fibrillation I48.91 [facility] [address] [place] [address] 09/25/2024 Erik Sung [facility] [address] [facility] [place] [address] 06/07/2024 Erik Sung [facility] [address] [facility] [place] [address] 06/08/2024 Erik Sung [facility] [address] [place] [address] 06/09/2024 Erik Sung [facility] [address] [place] [address] 06/16/2024 Erik Sung Assessments Encounter Date Diagnosis (ICD Code) Assessment Notes Treatment Notes Treatment Clinical Notes Section Notes 09/22/2024 Diabetic neuropathy (ICD-10 - E11.40) 11/17/2024 Vitamin B12 deficiency (ICD-10 - E53.8) 12/18/2024 Vitamin B12 deficiency (ICD-10 - E53.8) 01/15/2025 Vitamin B12 deficiency (ICD-10 - E53.8) 01/18/2025 Edema (ICD-10 - R60.9) 01/18/2025 Urinary frequency (ICD-10 - R35.0) 09/22/2024 Essential Hypertension (ICD-10 - I10) trial of inc labetolol to TID 02/22/2025 Hyperlipidemia (ICD-10 - E78.5) 02/22/2025 Vitamin B12 deficiency (ICD-10 - E53.8) 03/26/2025 Vitamin B12 deficiency (ICD-10 - E53.8) 04/06/2025 Atrial fibrillation (ICD-10 - I48.91) 04/06/2025 CHF (congestive heart failure) (ICD-10 - I50.9) 08/23/2024 Atrial fibrillation (ICD-10 - I48.91) 08/25/2024 Atrial fibrillation (ICD-10 - I48.91) 01/18/2025 Atrial fibrillation (ICD-10 - I48.91) 02/13/2025 Altered mental status (ICD-10 - R41.82) 04/10/2025 Atrial fibrillation (ICD-10 - I48.91) 05/08/2025 CHF (congestive heart failure) (ICD-10 - I50.9) 06/02/2024 Vitamin B12 deficiency (ICD-10 - E53.8) 07/07/2024 Vitamin B12 deficiency (ICD-10 - E53.8) 08/07/2024 Vitamin B12 deficiency (ICD-10 - E53.8) 08/15/2024 Benign prostatic hyperplasia (ICD-10 - N40.0) 08/15/2024 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) 08/23/2024 Atrial fibrillation (ICD-10 - I48.91) rATE CONTYROLLED 08/23/2024 Diabetic neuropathy (ICD-10 - E11.40) SUGAR good 03/14/2025 Atrial fibrillation (ICD-10 - I48.91) 03/14/2025 Hyperlipidemia (ICD-10 - E78.5) 03/14/2025 Pulmonary hypertension (ICD-10 - I27.20) 08/23/2024 Essential Hypertension (ICD-10 - I10) stable 08/15/2024 Essential Hypertension (ICD-10 - I10) 05/08/2025 Edema (ICD-10 - R60.9) 09/22/2024 Resting tremor (ICD-10 - G25.2) 02/22/2025 Atrial fibrillation (ICD-10 - I48.91) 01/18/2025 Essential Hypertension (ICD-10 - I10) 09/22/2024 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) 01/18/2025 Diabetes mellitus (ICD-10 - E11.9) 02/22/2025 CVA (cerebral vascular accident) (ICD-10 - I63.9) 08/15/2024 Resting tremor (ICD-10 - G25.2) 08/23/2024 Resting tremor (ICD-10 - G25.2) adjusteng med - primidone to 1 in am and 2 at hs 05/08/2025 Chronic kidney disease, stage 3 unspecified (ICD-10 - N18.30) 08/23/2024 Encounter for immunization (ICD-10 - Z23) 02/22/2025 Diabetes mellitus (ICD-10 - E11.9) restarting metformin 05/08/2025 Urinary obstruction (ICD-10 - N13.9) Plan Of Treatment Pending Test Test Name Order Date CMP (COMPLETE METABOLIC PANEL) 04/29/202 4 UA (URINALYSIS, COMPLETE) 05/08/2025 CBC WITH DIFF 01/18/2025 XR Chest PA and Lateral (Routine CXR) * 07/23/2023 XR Chest PA and Lateral (Routine CXR) * 08/30/2023 XR Chest PA and Lateral (Routine CXR) * 09/09/2023 T3 FREE, T4 FREE and TSH 03/13/2024 FECAL OCCULT BLOOD 03/13/2024 Troponin 05/08/2025 CMP - Comprehensive Metabolic Panel 04/16 Basic Metabolic Panel (8) 04/10/2025 CBC W/AUTO DIFF 05/08/2025 MRI Brain w/o Contrast 02/13/2025 BNP 05/08/2025 CBC AUTO DIFF 05/08/2025 CULTURE SPUTUM 05/08/2025 CULTURE SPUTUM 07/23/2023 CULTURE SPUTUM 01/18/2025 PROF 14(COMP METB) 05/08/2025 RESPIRATORY PANEL PLUS 09/09/2023 SPUTUM GRAM STAIN 01/18/2025 THYROID PANEL (T4/TSH/FREE T3) Free PSA 03/13/2024 Troponin I High Sensitivity 05/08/2025 CMP (COMP MET LYN) w/eGFR CKD-EPI 2024 Insurance Providers Payer Name Payer Address Payer Phone Subscriber Number Group Number Insured Name Patient Relationship to Insured Coverage Start Date Coverage End Date [place] [address] [place] [address] [id number] Nadir Rodriguez Self - patient is the insured 4 [facility] [address] [place] [address] [id number] PLAN C Nadir Rodriguez Self - patient is the insured 5 [...]
--- OUTSIDE RECORDS SUMMARY | 2025-05-08 17:58 | XMS_ITS | Encounter Summary ---
Author Organization [facility] Address [id number] [address] [place] [address] Care Team Providers Care Injection Molding Supervisor Name Role Phone Pj Sung MD Primary Care Provider [phone] Encounter Details Date Type Department Care Team (Late st Contact Info) Description 02/15/2025 Orders Only [facility] External Film Storage [facility] [place] [address] Transcribe, Orders Support User Pain [...] pain documented in this encounter Care Teams Injection Molding Supervisor Relationship Specialty Start Date End Date Pj Sung MD [address] [place] [address] PCP - General Family Medicine 02/14/25 documented as of this encounter
--- OUTSIDE RECORDS SUMMARY | 2025-05-08 17:59 | XMS_ITS | Encounter Summary ---
Author Organization [facility] Address [address] [place] [address] Care Team Providers Care Outdoor Illuminating Engineer Name Role Phone Pj Sung MD Primary Care Provider [phone] Encounter Details Date Type Department Care Team (Latest Contact Info) Description 05/08/2025 Travel Social History Tobacco Use Types Packs/Day [...] EDT Office Visit [facility] [address] [facility] [address] [place] [phone] Blaise Dc DPM [address] [facility] 5 [place] [address] 07/10/2025 10:30 AM EDT Office Visit [facility] [address] [facility] [address] [place] [address] Lenin Montoya MD [address] [facility] [address] [place] [address] 09/11/2025 1:15 PM EDT Office Visit [facility] [address] [facility] [address] [place] [address] Mercedes Joy MD [address] [facility] [address] [place] [address] 10/09/2025 1:45 PM EST Office Visit [facility] [place] [address] [facility] [address] [place] [address] Lenin Montoya MD [address] [id number] documented as of this encounter Visit Diagnoses Not on filedocumented in this encounter Care Teams Outdoor Illuminating Engineer Relationship Specialty Start Date End Date Pj Sung MD [address] [place] [phone] PCP - General Family Medicine 12/02/23 documented as of this encounter
--- OUTSIDE RECORDS SUMMARY | 2025-05-08 17:59 | XMS_ITS | Clinical Summary ---
Author Organization [facility] Address [address] [place] [address] Phone Care Team Providers Care Consumer Marketing Manager Name Role Phone Unavailable Primary Care Provider [...]
--- OUTSIDE RECORDS SUMMARY | 2025-05-08 17:59 | XMS_ITS | Encounter Summary ---
Author Organization [facility] Address [address] [place] [address] Care Team Providers Care Family Specialist Name Role Phone Pj Sung MD Primary Care Provider [phone] Encounter Details Date Type Department Care Team (Late Contact Info) Description 05/07/2025 Telephone [facility] [address] [place] [address] [place], [place] Social History Tobacco Use Types Packs/Day Years Used Date Smoking Tobacco: Former Cigarettes Smokeless Tobacco: Never Alcohol Use Standard Drinks/Week Comments Not Currently 0 (1 standard drink = 0.6 oz pur e alcohol) PHQ-2 Answer Date Recorded Patient Health Questionnaire-2 Score 0 01/03/2025 CT Safety & Environment Answer Date Rec orded [...] PM EDT documented as of this encounter Plan of Treatment Upcoming Encounters Date Type Department Care Team (Late Contact Info) Description 05/10/2025 8:30 AM EDT Hospital Encounter [facility] Heart [facility] [address] [facility] [place] [address] Mike Cisneros MD [address] [place] [address] Nonrheumatic aortic valve stenosis; Chronic diastolic congestive heart failure (CMS/HCC); Shortness of breath; Abnormal findings on diagnostic imaging of heart and coronary circulation 05/10/2025 10:30 AM EDT - 05/10/2025 11:30 AM EDT Surgery [facility] [address] [facility] [place] [address] Mike Cisneros MD [address] [place] [address] Coronary angiography [77414 (CPT )] 07/11/2025 1:30 PM EDT Follow-Up [facility] [address] [place] [phone] Jeff Hutton MD [facility] [place], [place] [id number] documented as of this encounter Visit Diagnoses Not on filedocumented in this encounter Care Teams Family Specialist Relationship Specialty Start Date End Date Pj Sung MD [address] [facility] [place] [address] PCP - General 07/17/22 documented as of this encounter
--- OUTSIDE RECORDS SUMMARY | 2025-05-08 17:59 | XMS_ITS | Encounter Summary ---
Author Organization [facility] Address [address] [place] [address] Care Team Providers Care Radio Technician Name Role Phone Pj Sung MD Primary Care Provider [phone] Encounter Details Date Type Department Care Team (Late Contact Info) Description 04/25/2025 Telephone [facility] [address] [address] Mulu Edgar MA Social History Tobacco Use Types Packs/Day [...] on file documented as of this encounter Miscellaneous Notes * Telephone Encounter - Mulu Edgar MA - 04/25/2025 11:50 AM EDT Patient' daughter Valerie ([phone]) called to let our office know that pt had stroke after appt 04/10/25. Went to [facility]. I will get records from admission, scheduled appt with Winnie 05/08. Is 05/08 FUok or push it out further? Original FU not until 09/2025. documented in this encounter Plan of Treatment Upcoming Encounters Date Type Department Care Team (Late Contact Info) Description 06/21/2025 10:40 AM EDT Office Visit [facility] [address] [facility] [address] [place] [address] Blaise Dc DPM 3006 [facility] [address] [place] [address] 07/10/2025 10:30 AM EDT Office Visit [facility] [address] [place] [address] Lenin Montoya MD [address] [id number] 09/11/2025 1:15 PM EDT Office Visit [facility] [address] [place] [address] Mercedes Joy MD [address] [facility] [address] [place] [address] 10/09/2025 1:45 PM EST Office Visit [facility] [address] [place] [address] Lenin Montoya MD [address] [address] documented as of this encounter Visit Diagnoses Not on filedocumented in this encounter Care Teams Radio Technician Relationship Specialty Start Date End Date Pj Sung MD [address] [place] [address] PCP - General Family Medicine 12/02/23 documented as of this encounter
--- OUTSIDE RECORDS SUMMARY | 2025-05-08 17:59 | XMS_ITS | Referral Summary ---
Author Organization [facility] Address [address] [place] [address] Care Team Providers Care Taker Off Hemp Fiber Name Role Phone Pj Sung MD Primary Care Provider [phone] Encounters Date Type Department Care Team Description 05/07/[address] [address] Stephanie Carl MA 05/04/2025 Telephone [facility] [address] [place] [phone] Ruthie Linda MD 04/30/2025 3:00 PM EDT Office Visit [address] [phone] Mike Cisneros MD Nonrheumatic aortic valve stenosis (Primary Dx); Chronic diastolic congestive heart failure (CMS/HCC); Shortness of breath; Longstanding persistent atrial fibrillation (CMS/HCC); Pericardial effusion; Pulmonary hypertension (CMS/HCC); 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; Primary hypertension; Stage 3b chronic kidney disease (CMS/HCC) 04/18/[address] [phone] Stephanie Carl MA 03/12/2025 9:30 AM EDT Office Visit [address] [address] Mike Cisneros MD Longstanding persistent atrial fibrillation (CMS/HCC) (Primary Dx); Nonrheumatic aortic valve stenosis; Pericardial effusion; Pulmonary hypertension (CMS/HCC); Chronic diastolic congestive heart failure (CMS/HCC); 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; Primary hypertension; Stage 3b chronic kidney disease (CMS/HCC); Weakness of both lower extremities; Shortness of breath; Abnormal findings on diagnostic imaging of heart and coronary circulation 02/28/2025 Travel 02/28/2025 10:46 AM EDT - 02/28/2025 11:59 PM EDT Hospital Encounter [facility] Heart [facility] [address] [place] [address] Longstanding persistent atrial fibrillation (CMS/HCC); 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 Discharge Disposition: Home or Self Care () 02/21/2025 Telephone [facility] [address] [place] [address] Ni Amador RN 02/19/[address] [facility] [address] [place] [address] Stephanie Carl MA Longstanding persistent atrial fibrillation (CMS/HCC); 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 from Last 3 Months Allergies Active Allergy Reactions Criticality Noted Date Comments Iodinated Contrast Media 07/17/2022 Nitroglycerin 07/17/2022 Saexwih-Ike-Bnu Reductase Inhibitors 07/17/2022 Medications aspirin 81 mg [...] times daily. 360 tablet 3 12/14/19 25 Active prednisoLONE acetate (Pred-Forte) 1 % ophthalmic [...] (06/14/2023 3:05 PM EDT): Recent admit to [facility] for shortness of breath, acute HFpEF with ARTUR. BNP 3311, BUN 26, CR 1.5-1.9, LFT normal, K+ normal. Troponin level negative. CXR showed vascular congestion Pt was admitted and diuresed as inpt. [facility] III Continue GDMT- remains on jardiance and lasix 60 mg daily for diuresis Monitor daily weights, I&O, fluid restriction 1.5-2L/day, renal function and electrolytes- Script for BMP and CBC provided pt is also seeing PCP today Aortic valve disorder 03/18/2012 Type 1 diabetes mellitus 03/18/2012 Sleep apnea 03/18/2012 Primary hypertension 03/18/2012 Dyspnea 03/18/2012 Pulmonary heart disease, unspecified 03/18/2012 Immunizations Immunization Administration Dates Next Due Covid (MVP Interactive) Bivalent Osmel ter =>12 YRS 10/21/2022 Influenza, [...] Recorded Patient Health Questionnaire-2 Score 0 01/03/2025 [place] Safety & Environment Answer Date Rec orded [...] Description 05/10/2025 8:30 AM EDT Hospital Encounter [facility] [address] [place] [address] Mike Cisneros MD [address] [place] [phone] Nonrheumatic aortic valve stenosis; Chronic diastolic congestive heart failure (CMS/HCC); Shortness of breath; Abnormal findings on diagnostic imaging of heart and coronary circulation 05/10/2025 10:30 AM EDT - 05/10/2025 11:30 AM EDT Surgery [facility] [address] [facility] [place] [address] Mike Cisneros MD [address] [place] [address] Coronary angiography [[id number] (CPT )] 07/11/2025 1:30 PM EDT Follow-Up [facility] [address] [place] [phone] Jeff Hutton MD [address] [place] [phone] Procedures Procedure Name Priority Date/Time Associated Diagnosis [...] EDT Narrative 02/28/2025 6:13 PM EDT 1 [facility] Heart Station [address] [place] [address] (fax) Transesophageal Echocardiogram-[facility] Name: NADIR HEREDIA Study Date: 02/28/2025 11:38 AM B/P: 152 mmHg/76 mmHg HR: Date of : 1940 Location: [facility] Height: 73 in. Age: 85 year(s) Patient Room: Weight: 188 lb. Gender: Male Patient Status: OutPt BSA: 2.1 m2 Indication: Atrial Fibrillation Examination: MARK/Limited Doppler/CFI, Agitated Saline Image Quality: Good Patient Consent: Informed, written consent was obtained for the procedure Exam Location: A MARK was performed in the [facility] without complications Anesthesia Pharyngeal anesthesia with viscous [...] small pericardial effusion. Procedure Staff Reading Group: [facility] Crisis Nurse: Katelyn Martinez RDCS Ordering Physician: Mike Cisneros MD Procedure Note Kyleigh Faulkner MD - 02/28/2025 1 [facility] Heart Station [address] [facility] [place] [address] [phone] (fax) Transesophageal Echocardiogram-[facility] Name: NADIR HEREDIA Study Date: 02/28/2025 11:38 AM B/P: 152 mmHg/76 mmHg HR: Date of : 1940 Location: [facility] Height: 73 in. Age: 85 year(s) Patient Room: Weight: 188 lb. Gender: Male Patient Status: OutPt BSA: 2.1 m2 Indication: Atrial Fibrillation Examination: MARK/Limited Doppler/CFI, Agitated Saline Image Quality: Good Patient Consent: Informed, written consent was obtained for the procedure Exam Location: A MARK was performed in the [facility] without complications Anesthesia Pharyngeal anesthesia with viscous [...] small pericardial effusion. Procedure Staff Reading Group: [facility] Crisis Nurse: Katelyn Martinez RDCS Ordering Physician: Mike Cisneros MD Mike Cisneros MD CV ECHO PROCEDURES Final Res ult from Last 3 Months Insurance MEDICARE [facility] Care Teams Taker Off Hemp Fiber Relationship Specialty Start Date End Date Pj Sung MD [address] [place] [address] PCP - General 07/17/22
--- OUTSIDE RECORDS SUMMARY | 2025-05-08 17:59 | XMS_ITS | Clinical Summary ---
Author Organization [facility] Address [address] [place] [address] Care Team Providers Care Fountain Manager Name Role Phone Pj Sung MD Primary Care Provider [phone] Allergies Active Allergy Reactions Criticality Noted Date [...] 11/15/2024 Influenza Vaccine (Season Ended) [address] [facility] MEDICARE Care Teams Fountain Manager Relationship Specialty Start Date End Date Pj Sung MD PCP - General Family Medicine 08/24/12
--- OUTSIDE RECORDS SUMMARY | 2025-05-08 17:59 | XMS_ITS | Encounter Summary ---
Author Organization [facility] Address [address] [place] [address] Care Team Providers Care Receivables Specialist Name Role Phone Pj Sung MD Primary Care Provider Encounter Details Date Type Department Care Team (Late st Contact Info) Description 05/04/2025 Telephone [facility] [place] [phone] Ruthie Linda MD [address] [facility] [place] [address] Social History Tobacco Use Types Packs/Day Years Used Date Smoking Tobacco: Former Cigarettes Smokeless Tobacco: Never Alcohol Use Standard Drinks/Week Comments Not Currently 0 (1 standard drink = 0.6 oz pur e alcohol) PHQ-2 Answer Date Recorded Patient Health Questionnaire-2 Score 0 01/03/2025 [place] Safety & Environment Answer Date Rec orded [...] PM EDT documented as of this encounter Miscellaneous Notes * Telephone Encounter - Iva Washington MA - 05/08/2025 1:22 PM EDT Patient is rescheduled for 07/11. * Telephone Encounter - Liz Langley - 05/04/2025 2:57 PM EDT Lvm to reschedule patients nephrology appointment. Advised at this time, the appointment will be cancelled and to call back to reschedule. documented in this encounter Plan of Treatment Upcoming Encounters Date Type Department Care Team (Late st Contact Info) Description 05/10/2025 8:30 AM EDT Hospital Encounter [facility] [address] [facility] [place] [phone] Mike Cisneros MD [address] [place] [phone] Nonrheumatic aortic valve stenosis; Chronic diastolic congestive heart failure (CMS/HCC); Shortness of breath; Abnormal findings on diagnostic imaging of heart and coronary circulation 05/10/2025 10:30 AM EDT - 05/10/2025 11:30 AM EDT Surgery [facility] [address] [facility] [place] [phone] Mike Cisneros MD [address] [place] [phone] Coronary angiography [[id number] (CPT )] 07/11/2025 1:30 PM EDT Follow-Up [facility] [address] [place] [address] [place] [address] Jeff Hutton MD [address] [place] [address] documented as of this encounter Visit Diagnoses Not on filedocumented in this encounter Care Teams Receivables Specialist Relationship Specialty Start Date End Date Pj Sung MD [address] [facility] [place] [address] PCP - General 07/17/22 documented as of this encounter
--- OUTSIDE RECORDS SUMMARY | 2025-05-08 17:59 | XMS_ITS | Encounter Summary ---
Author Organization [facility] Address [address] [place] [address] Care Team Providers Care Demo Event Specialist Name Role Phone Pj Snug MD Primary Care Provider [phone] Encounter Details Date Type Department Care Team (Late st Contact Info) Description 07/17/2022 Abstract [facility] Heart at [facility] [address] [place] [address] Cheyanne Ventura MA Social History Tobacco Use [...] Description 05/10/2025 8:30 AM EDT Hospital Encounter [facility] Vascular Lab [address] [place] [phone] Mike Cisneros MD [address] [facility] [address] [facility] [place] [phone] Nonrheumatic aortic valve stenosis; Chronic diastolic congestive heart failure (CMS/HCC); Shortness of breath; Abnormal findings on diagnostic imaging of heart and coronary circulation 05/10/2025 10:30 AM EDT - 05/10/2025 11:30 AM EDT Surgery [facility] Vascular Lab [address] [place] [phone] Mike Cisneros MD [address] [facility] [place] [address] Coronary angiography [[id number] (CPT )] 07/11/2025 1:30 PM EDT Follow-Up [facility] [address] [place] [phone] Jeff Hutton MD [address] [place], [place] [phone] documented as of this encounter Visit Diagnoses Not on filedocumented in this encounter Care Teams Demo Event Specialist Relationship Specialty Start Date End Date Pj Sung MD [address] [facility] [place] [address] PCP - General 07/17/22 documented as of this encounter
--- NOTE | 2025-05-08 18:26 | ECG_ITS ---
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 Measurements Intervals [place] Rate: 70 P: -42247 IN: -14452 QRS: 66 QRSD: 94 T: 66 QT: 408 QTc: 429 Interpretive Statements 1210 Atrial fibrillation 3433 Septal myocardial infarction, probably old [address] depression, probably digitalis effect 9150 abnormal ECG Compared to ECG 03/08/2025 09:45:12 Aberrant conduction of supraventricular beat(s) no longer present Myocardial infarct finding still present ST (T wave) deviation still present Electronically Signed On 05-08-2025 22:01:26 EDT by CLARIBEL PUGA M.D.
--- NOTE | 2025-05-08 18:28 | ED.GENADUL1 ---
HPI HPI - General Adult General Chief complaint: Weakness Stated complaint: bilateral leg swelling Time Seen by Provider: 05/08/25 18:17 Source: family Mode of arrival: Wheelchair Limitations: no limitations History of Present Illness HPI narrative: 85-year-old male presents to the emergency department for swelling in both of his legs. He has had this for the last few days and they increased his Lasix dose today. He is not complaining of shortness of breath or chest pain. Family gives some of the history and reports that his legs have never been the swollen. He reportedly had an elevated BNP earlier today. Related Data Home Medications ?Medication ?Instructions ?Recorded ?Confirmed Vitamin B-Complex 1 tab PO .NOON 05/31/23 03/08/25 aspirin 81 mg tablet,delayed 81 mg PO DAILY 05/31/23 03/08/25 release (Adult Low Dose Aspirin) dicyclomine 10 mg capsule 10 mg PO QID PRN abdominal pain 05/31/23 03/08/25 empagliflozin 25 mg tablet 25 mg PO DAILY 05/31/23 03/08/25 (Jardiance) ezetimibe 10 mg tablet 10 mg PO DAILY 05/31/23 03/08/25 glimepiride 4 mg tablet 8 mg PO DAILY 05/31/23 03/08/25 labetalol 300 mg tablet 300 mg PO TID 05/31/23 03/08/25 magnesium See Rx Instructions PO BID 05/31/23 03/08/25 alprazolam 0.25 mg tablet 0.25 mg PO BID PRN anxiety 08/16/24 03/08/25 pioglitazone 45 mg tablet (Actos) 45 mg PO DAILY 08/16/24 03/08/25 potassium chloride 20 mEq 40 meq PO .QD 08/16/24 03/08/25 tablet,extended release(part/cryst) cetirizine 10 mg tablet (Allergy 10 mg PO BID 02/14/25 03/08/25 Relief (cetirizine)) cholecalciferol (vitamin D3) 25 125 mcg PO DAILY 02/14/25 03/08/25 mcg (1,000 unit) capsule diphenhydramine 25 1 tab PO .QHS 02/14/25 03/08/25 mg-acetaminophen 500 mg tablet (Acetaminophen PM) furosemide 40 mg tablet (Lasix) 80 mg PO BID 02/14/25 03/08/25 omeprazole 20 mg capsule,delayed 20 mg PO BID 02/14/25 03/08/25 release prednisolone acetate 1 % eye 1 drp ophthalmic (eye) TID 02/14/25 03/08/25 drops,suspension primidone 50 mg tablet 50 mg PO Q8H 02/14/25 03/08/25 sitagliptin phosphate 100 mg 100 mg PO DAILY 02/14/25 03/08/25 tablet (Januvia) Previous Rx's ?Medication ?Instructions ?Recorded clonidine HCl 0.1 mg tablet 0.2 mg (2 x 0.1 mg) PO Q12H #120 08/17/24 tabs rivaroxaban 15 mg tablet (Xarelto) 15 mg PO DAILY #30 tabs 02/16/25 Allergies Allergy/AdvReac Type Severity Reaction Status Date / Time nitroglycerin Allergy Intermediate Hypotension Verified 05/08/25 18:10 Iodinated Contrast Media AdvReac Intermediate renal Verified 05/08/25 18:10 problem Opioid HPI Opioid Management Most Recent Opioid Data: Last Pain Scale 0 02/16/25, 10:19 Last ORT Total Score 0 02/14/25, 14:24 Last ORT Risk Category Low Risk 02/14/25, 14:24 Review of Systems ROS Narrative A ten point review of systems is negative except as noted above. [facility] Medical History (Updated 05/08/25 @ 18:29 by Flaco Haynes MD) Type 2 diabetes mellitus ?E11.9 - Type 2 diabetes mellitus without complications (ICD-10) Hyperlipidemia ?E78.5 - Hyperlipidemia, unspecified (ICD-10) Essential hypertension ?I10 - Essential (primary) hypertension (ICD-10) Nonsustained ventricular tachycardia ?I47.29 - Other ventricular tachycardia (ICD-10) (HFpEF) heart failure with preserved ejection fraction ?I50.30 - Unspecified diastolic (congestive) heart failure (ICD-10) Chronic kidney disease ?N18.9 - Chronic kidney disease, unspecified (ICD-10) Pericardial effusion ?I31.39 - Other pericardial effusion (noninflammatory) (ICD-10) Aortic stenosis ?I35.0 - Nonrheumatic aortic (valve) stenosis (ICD-10) CVA (cerebral vascular accident) ?I63.9 - Cerebral infarction, unspecified (ICD-10) Altered mental status ?R41.82 - Altered mental status, unspecified (ICD-10) BPH with obstruction/lower urinary tract symptoms ?N40.1 - Benign prostatic hyperplasia with lower urinary tract symptoms (ICD-10) ?N13.8 - Other obstructive and reflux uropathy (ICD-10) Clot retention of urine ?R33.8 - Other retention of urine (ICD-10) Hematuria ?R31.9 - Hematuria, unspecified (ICD-10) Acute urinary obstruction ?N13.9 - Obstructive and reflux uropathy, unspecified (ICD-10) Atrial fibrillation ?I48.91 - Unspecified atrial fibrillation (ICD-10) Lethargy ?R53.83 - Other fatigue (ICD-10) Difficulty with speech ?R47.9 - Unspecified speech disturbances (ICD-10) AMS (altered mental status) ?R41.82 - Altered mental status, unspecified (ICD-10) Balanitis ?N48.1 - Balanitis (ICD-10) Pulmonary edema ?J81.1 - Chronic pulmonary edema (ICD-10) Dyspnea ?R06.00 - Dyspnea, unspecified (ICD-10) Congestive heart failure ?I50.9 - Heart failure, unspecified (ICD-10) Heart failure ?I50.9 - Heart failure, unspecified (ICD-10) Neuropathy ?G62.9 - Polyneuropathy, unspecified (ICD-10) Occasional tremors ?R25.1 - Tremor, unspecified (ICD-10) History of diverticulosis ?Z87.19 - Personal history of other diseases of the digestive system (ICD-10) History of sleep apnea ?Z86.69 - Personal history of other diseases of the nervous system and sense organs (ICD-10) Diabetes ?E11.9 - Type 2 diabetes mellitus without complications (ICD-10) History of hypertension ?Z86.79 - Personal history of other diseases of the circulatory system (ICD-10) History of gastroesophageal reflux (GERD) ?Z87.19 - Personal history of other diseases of the digestive system (ICD-10) History of asthma ?Z87.09 - Personal history of other diseases of the respiratory system (ICD-10) Surgical History History of cardiac catheterization ?Z98.890 - Other specified postprocedural states (ICD-10) History of cholecystectomy ?Z90.49 - Acquired absence of other specified parts of digestive tract (ICD-10) Family History Father Family history of myocardial infarction Family history of CHF (congestive heart failure) Family history of hypertension Mother Family history of cancer Grandmother Family history of diabetes mellitus Social History Within the past year, how often did you have a drink containing alcohol: 2-4 times a month Smoking status: Former smoker Non-prescribed substance use: denies use Highest level of school completed/degree received: 9th grade Little interest or pleasure in doing things: not at all Feeling down, depressed, or hopeless: not at all Do you think of yourself as: straight/heterosexual Gender Identity: male Exam Narrative Exam Narrative: Nurses note and vital signs reviewed and patient is not hypoxic. General: The patient appears in no apparent distress. Patient is resting comfortably on cart. Skin: Warm, dry, no pallor noted. There is no rash noted. Head: Normocephalic, atraumatic Eye: Normal conjunctiva, no drainage Ears, Nose, Mouth, and Throat: oral mucosa is moist. Nares patent. Cardiovascular: Regular Rate and Rhythm Respiratory: Patient is in no distress, no accessory muscle use, lungs are clear to auscultation, no wheezing, rales or rhonchi Back: non-tender GI: Soft and nontender Musculoskeletal: Bilateral lower extremity edema present Neurological: Awake and alert Psychiatric: Cooperative Constitutional Vital Signs, click to edit/add: Last Vital Signs Temp 98.6 F 05/08/25 18:04 Pulse 77 05/08/25 18:04 Resp 20 05/08/25 18:04 BP 135/58 05/08/25 18:04 Pulse Ox 93 L 05/08/25 18:04 O2 Del Method Room Air 05/08/25 18:04 Course Vital Signs Vital signs: Vital Signs Temperature 98.6 F 05/08/25 18:04 Pulse Rate 77 05/08/25 18:04 Respiratory Rate 20 05/08/25 18:04 Blood Pressure 135/58 05/08/25 18:04 Pulse Oximetry 93 L 05/08/25 18:04 Oxygen Delivery Method Room Air 05/08/25 18:04 Temperature 98.6 F 05/08/25 18:04 Pulse Rate 77 05/08/25 18:04 Respiratory Rate 20 05/08/25 18:04 Blood Pressure 135/58 05/08/25 18:04 Pulse Oximetry 93 L 05/08/25 18:04 Oxygen Delivery Method Room Air 05/08/25 18:04 Medical Decision Making MDM Narrative Medical decision making narrative: Tests are ordered and the patient is signed out to Dr. Park at change of shift. Discharge Plan Discharge Patient Disposition: Still a Patient
--- NOTE | 2025-05-08 18:55 | PC.NURSE ---
Pt presents to ER for elevated BNP per Dr. Fuentes office Pt stays at the [facility] at this time, family took him to neurology appointment today due to increased boughts of confusion Family states that patient keeps wandering more frequently at time and his daughter was concerned for the swelling in his lower legs seeming to go up to this thighs Daughter texted Dr. Sung and asked for labwork which was done today - when labs resulted the [facility] called family and said he needd to go to ER right away Pt does have pitting edema to lower extremities On assessment patient remains asleep- though arousable
[2025-05-08 18:59] LABS: Basophils Percent Auto 0.3 % (0.2-2.0); Eosinophils Absolute Auto 0.1 10^3/uL (0.0-0.7); Eosinophils Percent Auto 1.4 % (0.9-7.0); Hematocrit 31.6 % (42.0-54.0); Hemoglobin 9.9 g/dL (14.0-18.0); Immature Granulocytes Abs Auto 0.06 10^3/uL (0.00-0.03); Immature Granulocytes Pct Auto 0.7 % (0.0-0.5); Lymphocytes Absolute Auto 0.9 10^3/uL (1.2-3.8); Lymphocytes Percent Auto 10.2 % (20.5-60.0); Mean Corpuscular HGB Conc 31.3 g/dL (29.9-35.2); Mean Corpuscular Hemoglobin 26.3 pg (25.9-34.0); Mean Platelet Volume 10.4 fL (9.5-13.5); Monocytes Absolute Auto 1.2 10^3/uL (0.3-0.8); Monocytes Percent Auto 12.9 % (1.7-12.0); Neutrophils Absolute Auto 6.7 10^3/uL (1.4-6.5); Neutrophils Percent Auto 74.5 % (43.0-75.0); Platelet Count 287 10^3/uL (150-450); Red Blood Count 3.76 10^6/uL (4.70-6.10)
[2025-05-08 19:01] LABS: Bilirubin Urine NEGATIVE (NEGATIVE); Blood Urine NEGATIVE (NEGATIVE); Clarity Urine CLEAR (CLEAR); Color Urine LT. YELLOW (YELLOW); Glucose Urine UA >=1000 mg/dL (NEGATIVE); Ketones Urine NEGATIVE (NEGATIVE); Leukocyte Esterase Urine NEGATIVE (NEGATIVE); Nitrite Urine NEGATIVE (NEGATIVE); Protein Urine NEGATIVE (NEG/TRACE); Specific Gravity Urine <=1.005 (1.005-1.025); Urobilinogen Urine 0.2 EU/dL (0.2-1.0)
[2025-05-08 19:05] LABS: Urine Microscopic Indicated NO
[2025-05-08 19:21] LABS: Anion Gap 12.5; BUN Creatinine Ratio 15.8; Carbon Dioxide 28.2 mmol/L (21.0-32.0); Chloride 103 mmol/L (98-107); Estimated GFR (African America 41 (>=60 mL/min/1.73m^2); Estimated GFR (Non-African Ame 34 (>=60 mL/min/1.73m^2); Glucose 175 mg/dL (74-106); Potassium 4.7 mmol/L (3.5-5.1); Sodium 139 mmol/L (136-145)
[2025-05-08 19:26] LABS: Troponin I High Sensitivity 16.4 pg/mL (4.0-76.1)
--- NOTE | 2025-05-08 21:37 | PC.NURSE ---
Pt family notified this nurse that the patient needed to use the restroom This nurse assisted patient in standing and attempting to use urinal but patient was unable to go Pt confused, talking about his job that he has [employer] long retired from pts family at bedside states pt is becoming more confused After this nurse left the room patients daughter came out and stated that the patient is saying he has a headache and his stomach hurts pts daughter states this is what the patient experienced prior to his stroke a few weeks ago Dr. Garcia made aware
[2025-05-08] MEDS: ACETAMINOPHEN 500 MG TABLET 1000 MG PO (22:34)
[2025-05-08] MEDS: FUROSEMIDE 40 MG/4 ML VIAL 80 MG IVP (22:36)
[2025-05-08] MEDS: LABETALOL HCL 20 MG/4 ML SYRINGE 10 MG IVP (23:30)
--- OUTSIDE RECORDS SUMMARY | 2025-05-08 23:49 | XMS_ITS | CCD ---
Author Organization [facility] Care Team Providers Care Responder Name Role Phone PHYSICIAN, DEFAULT Admitting Unavailable PHYSICIAN, DEFAULT Attending Unavailable VAN YOUSSEF Primary Care Unavailable Van Youssef Primary Care Physician [phone] MIKAEL ., DR ARAUJO Primary Care Unavailable HOY ., DR ARAUJO Consulting Unavailable HOY ., DR ARAUJO Attending Unavailable HOY ., DR RAAUJO Admitting Unavailable ZIEBER, DR CLOVER Zimmer Consulting Unavailable SKAGWAY, DR CRAMER Consulting Unavailable HOY ., DR ARAUJO Primary Care Unavailable SKAGWAY, DR CRAMER Attending Unavailable SKAGWAY, DR CRAMER Admitting Unavailable SKAGWAY, DR CRAMER Consulting Unavailable HOY ., DR ARAUJO Primary Care Unavailable SKAGWAY, DR CRAMER Attending Unavailable SKAGWAY, DR CRAMER Admitting Unavailable HOY ., DR ARAUJO Consulting Unavailable HOY ., DR ARAUJO Primary Care Unavailable HOY ., DR ARAUJO Attending Unavailable HOY ., DR ARAUJO Admitting Unavailable SKAGWAY, DR CRAMER Consulting Unavailable HOY ., DR ARAUJO Primary Care Unavailable SKAGWAY, DR CRAMER Attending Unavailable SKAGWAY, DR CRAMER Admitting Unavailable HOY ., DR [...] ZELAYA Consulting Unavailable PREETI ROBERTS Consulting Unavailable Van Youssef MD Primary Care Provider [phone] Van Youssef MD Primary Care Provider [phone] Van Youssef MD Primary Care Provider [phone] BLAISE CHICAS Attending Unavailable BARRIE MONTOYA Attending Unavailable BLAISE CHICAS Attending Unavailable BLAISE CHICAS Attending Unavailable BLAISE CHICAS Attending Unavailable BLAISE CHICAS Attending Unavailable BLAISE CHICAS Attending Unavailable BARRIE MONTOYA Attending Unavailable BLAISE CHICAS Attending Unavailable RODNEY JOY Attending Unavailable BLAISE CHICAS Attending Unavailable BLAISE CHICAS Attending Unavailable NKANSAH-AMANKRA, MARQUIS Attending Unavail able NKANSAH-AMANKRA, MARQUIS Referring Unavail able NKANSAH-AMANKRA, MARQUIS Attending Unavail able NKANSAH-AMANKRA, MARQUIS Attending Unavail able NKANSAH-AMANKRA, MARQUIS Attending Unavail able NKANSAH-AMANKRA, MARQUIS Referring Unavail able Mejia SINGH Attending Unavailable Mejia SINGH Referring Unavailable NKANSAH-AMANKRA, MARQUIS Attending Unavail able NKANSAH-AMANKRA, MARQUIS Attending Unavail able NKANSAH-AMANKRA, MARQUIS Referring Unavail able Mejia SINGH Attending Unavailable SANTIAGO OLMEDO Attending Unavailab le NKANSAH-AMANKRA, MARQUIS Admitting Unavail able NKANSAH-AMANKRA, MARQUIS Attending Unavail able NKANSAH-AMANKRA, MARQUIS Referring Unavail able NKANSAH-AMANKRA, MARQUIS Admitting Unavail able NKANSAH-AMANKRA, MARQUIS Attending Unavail able NKANSAH-AMANKRA, MARQUIS Referring Unavail able Hajdari, Astrit H Attending Unavailable KARTIK, DO Ronobir R Admitting Unavailabl e KARTIK, DO Ronobir R Attending UnavailClover Villatoro Consulting Unavailable MD Clover Walker Consulting Unavailable Champlin, Clover Consulting Unavailable Champlin, Clover Consulting Unavailable Champlin, Clover Consulting Unavailable Champlin, Clover Consulting Unavailable Champlin, Clover Consulting Unavailable Champlin, Clover Consulting Unavailable Champlin, Clover Consulting [place]available [facility] [place] Consulting Unavailable [facility] Cardio, XXXX Consulting Unavailable Efrain Ferreiramozach Consulting Unavailable MD Rebeca Ferreira Consulting Unavailable Othman, Mahmoud Consulting Unavailable KARTIK, Ronobir R Admitting Unavailable KARTIK, Ronobir R Attending Unavailable [facility] [place]ound, XXXX Consulting Unavailable HOY, VAN M Primary Care Unavailable HOY, VAN M Referring Unavailable HOY, VAN M Primary Care Unavailable HOY, VAN M Referring Unavailable HOY, VAN M Primary Care Unavailable HOY, VAN M Referring Unavailable HOY, VAN M Primary Care Unavailable HOY, VAN M Referring Unavailable HOY, VAN M Primary Care Unavailable HOY, VAN M Primary Care Unavailable Marc Fajardo Attending Unavailable AMYJEFF COVARRUBIAS Attending Unavailable SKAGWAY, RUTHIE Attending Unavailable MOUKACLARIBEL ARCHER Attending Unavailable MOUKACLARIBEL ARCHER Attending Unavailable MOUKACLARIBEL ARCHER Attending Unavailable MOUKACLARIBEL ARCHER Attending Unavailable RUTHIE LINDA Attending Unavailable CLARIBEL CISNEROS Referring Unavailable Allergies Allergy Classification Reported Allergen(s) Allergy Type Date of Onset Reaction(s) Facility (20 sources) Aminolevulinic Acid; Translations: [aminolevulinic acid] Drug Allergy 11-04-20 [address] [facility] Repository (1 source) NITRO PATCH; Translations: [NITRO PATCH] Propensity to adverse reactions (disorder) 03-18-[address] [facility] Rep[facility] (20 sources) Contrast media; Translations: [Contrast Dye] Drug allergy Unknown (qualifier value) [facility] (20 sources) Hmg-Coa Reductase Inhibitors (Statins); Translations: [statins] Allergy to substance 08-24-20 23 Unknown [facility] (20 sources) Nitroglycerin; Translations: [nitroglycerin] Drug Allergy 02-23-20 Unknown (qualifier value) [facility] (2 sources) black walnut pollen extract; Translations: [[id number] REDUCTASE INHIBITORS] Drug Allergy 04-21-20 17 [facility] Rep[facility] (1 source) Iodine (And Iodine Containting Drugs) Drug allergy (disorder) 05-28-20 16 [facility] (20 sources) Nitroglycerin Allergy to substance 02-23-20 [facility] (20 sources) Iodinated Contrast Media; Translations: [IODINATED CONTRAST MEDIA] Drug Allergy 07-17-20 [facility] (11 sources) Simvastatin; Translations: [simvastatin] Drug Allergy elevated liver enzymes [facility] (7 sources) Aminolevulinic Acid; Translations: [aminolevulinic acid] Drug Allergy 11-04-20 13 [facility] Repository (7 sources) Nitroglycerin; Translations: [Nitroglycerin Patch] Drug Allergy [facility] Repository Medications Current Medications Medication Drug Class(es) Dates Sig (Normalized) Sig (Original) acetaminophen 500 mg oral tablet (2 sources) take 2 tablets by mouth every six hours as needed for pain acetaminophen (Tylenol) 500 MG tablet Take 1,000 mg by mouth every 6 (six) hours if needed for mild pain Active acetaminophen 325 mg / HYDROcodone bitartrate 5 mg oral tablet (4 sources) Opioid Agonist Start: 10-16-2024 take 1 tablet by mouth every six hours as needed for pain, then take 2 tablets by mouth every six hours as needed for pain Goldvein 325 mg-5 mg oral tablet 1 tab(s), Oral, q6hr, 2 tab(s), Refill(s) 0, Take q6hrs as needed for pain., [facility]/pharmacy #[id number], 185, cm, 10/02/24 [...] 0.25 mg oral tablet (20 sources) Benzodiazepine Start: 04-18-2025 take 1 tablet by mouth every eight hours as needed for anxiety Xanax 0.25 mg Tab 0.25 mg = 1 tab(s), Oral, q8hr, PRN as needed for anxiety, # 10 tab(s), Refills(s) 0 Start Date: 04/18/25 Status: Ordered Quantity: 10.0 Unit: tab(s) Repeat number: 1 Indications: Anxiety disorder, unspecified; ALPRAZolam (Xana x) 0.25 MG tablet every 12 (twelve) hours. [...] 0, Prophylaxis Start Date: 01/09/19 Status: Ordered Repeat number: 1 take 1 tablet by mouth in the mo rning aspirin 81 MG EC tablet Take 1 tablet by mouth in the morning. Active B Complex with Vitamin C Gummy oral tablet, chewable (1 source) Start: 04-14-2025 take 1 tablet by mouth once daily B Complex with Vitamin C Gummy oral tablet, chewable 1 tab(s), Chewed, Daily, Refill(s) 0 Start Date: 04/14/25 Status: Ordered Repeat number: 1 B-Complex tablet (20 sources) B-Complex tablet as directed Orally Active bacitracin zinc 0.5 unt/mg topical ointment (2 sources) bacitracin 500 UNIT/GM ointment Apply 1 application topically in the morning and 1 application before bedtime. Active bacitracin top 500 units/g Oint PACKET (1 source) Start: 04-18-2025 bacitracin top 500 units/g Oint PACKET Topical, BID, Refill(s) 0 Start Date: 04/18/25 Status: Ordered Repeat number: 1 Symbicort (20 sources) Corticosteroid, beta2-Adrenergi c Agonist Start: 01-09-2019 Symbicort 80-4.5 mcg/actuation, Inhalation, BID, Refill(s) 0, COPD Start Date: 01/09/19 Status: Ordered Repeat number: 1 Start: 01-09-2019 Symbicort 80-4 .5 mcg/actuation, Inhalation, BID, Refill(s) 0, COPD Start Date: 01/09/19 Status: Ordered take 2 puff(s) by in halation in the morning budesonide-formoterol (Symbicort) 80-4.5 MCG/ACT inhaler Inhale 2 puffs in the morning and 2 puffs before bedtime. Rinse mouth with water after use to reduce aftertaste and incidence of candidiasis. Do not swallow. Active End: 08-01-2024 budesonide-formoterol (Symbi sandra) 80-4.5 MCG/ACT inhaler 1 (one) time each day at the same time. 08/01/2024 Discontinued cetirizine hydrochloride 10 mg oral tablet (3 sources) Histamine-1 Receptor Antagonist Start: 04-14-2025 take 1 tablet by mouth once daily cetirizine 10 mg Tab 10 mg = 1 tab(s), Oral, Daily, Refills(s) 0 Start Date: 04/14/25 Status: Ordered Repeat number: 1 cetirizine (ZyrT EC) 10 MG chewable tablet Chew 10 mg Daily Active cholecalciferol 0.025 mg oral tablet (20 sources) [...] procedure., # 6 tab(s), Refills(s) 0, Pharmacy: [facility]/pharmacy #[id number], 185, cm, 10/02/24 11:15:00 EST, Height/Length Dosing, 91, kg, 10/02/24 11:15:00 EST, Weight Dosing Start Date: 10/16/24 Status: Ordered Start: 08-11-2024 take 1 tablet by joslyn th twice daily Cipro 500 mg Tab 500 mg = 1 tab(s), Oral, BID, Start 3 days prior to procedure., # 6 tab(s), Refills(s) 0, Pharmacy: [facility]/pharmacy #[id number], 185, cm, 08/08/24 10:28:00 EDT, Height/Length Dosing, 91, kg, 08/08/24 10:28:00 EDT, Weight Dosing Start Date: 08/11/24 Status: Ordered Daily Fiber Sugar-Free (1 source) Start: 04-14-2025 take 3 capsules by mouth once daily Daily Fiber Sugar-Free 3 capsules, Oral, Daily, Refill(s) 0 Start Date: 04/14/25 Status: Ordered Repeat number: 1 diazePAM 10 mg oral tablet (4 sources) Benzodiazepine Start: 10-16-2024 Valium 10 mg T ab 10 mg = 1 tab(s), Oral, Once, take one hour prior to the procedure., # 1 tab(s), Refills(s) 0, Pharmacy: [facility]/pharmacy #[id number], 185, cm, 10/02/24 11:15:00 EST, Height/Length Dosing, 91, kg, 10/02/24 11:15:00 EST, Weight Dosing Start Date: 10/16/24 Status: Ordered dicyclomine hydrochloride 10 mg oral tablet (20 sources) Anticholinergic Start: 01-09-2019 take 10 mg by mouth twice daily dicyclomine 10 mg, Oral, BID, Refills(s) 0, Spasm Start Date: 01/09/19 Status: Ordered Repeat number: 1 take 1 capsule by mouth once jazzy [...] in the morning. 11/12/2022 Active Start: 03-31-2022 Jardiance 10 m g oral tablet 25 mg, Oral, qAM, Refills(s) 0, Blood glucose Start Date: 03/31/22 Status: Ordered Repeat number: 1 Start: 03-31-2022 take 1 tablet by joslyn [...] High cholesterol Start Date: 01/09/19 Status: Ordered Repeat number: 1 ferrous sulfate (20 sources) Start: 01-09-2019 ferrous sulfat e 325 mg, BID, Refills(s) 0, Prophylaxis Start Date: 01/09/19 Status: Ordered take 1 tablet by mouth in the mo rning ferrous sulfate 325 (65 Fe) MG tablet Take 1 tablet by mouth in the morning and 1 tablet before bedtime. Active 60 actuat fluticasone propionate 0.113 mg/actuat / salmeterol xinafoate 0.014 mg/actuat dry powder inhaler (2 sources) Corticosteroid, beta2-Adrenergic Agonist take 1 puff(s) by mouth in the morning fluticasone-salmeterol (AirDuo RespiClick) 113-14 MCG/ACT inhaler Inhale 1 puff in the morning and 1 puff before bedtime. Rinse mouth with water after use to reduce aftertaste and incidence of candidiasis. Do not swallow. Active furosemide 20 mg oral tablet (20 sources) Loop Diuretic Start: 2023 take 1 mg by mouth once daily [...] Neuropathy Start Date: 01/09/19 Status: Ordered glimepiride 8 mg oral tablet (20 sources) Sulfonylurea Start: 01-09-2019 take 8 mg by mouth once daily glimepiride 8 mg, Oral, Daily, Refills(s) 0, High blood sugar Start Date: 01/09/19 Status: Ordered Repeat number: 1 Start: 01-09-2019 take 2 mg by mouth once daily glimepiride 2 mg, Oral, Daily, Refills(s) 0, High blood sugar Start Date: 01/09/19 Status: Ordered take 1 tablet by joslyn th in the morning glimepiride (Amaryl) 4 MG tablet Take 1 tablet by mouth in the morning and 1 tablet before bedtime. Active hydrALAZINE hydrochloride 100 mg oral tablet (20 sources) Arteriolar Vasodilator Start: 01-09-2019 End: 08-01-2024 take 100 mg by mouth twice daily hydrALAZINE 100 mg, Oral, BID, Refills(s) 0, High blood pressure Start Date: 01/09/19 Status: Ordered 3 ml insulin lispro 50 unt/ml / insulin lispro protamine, human 50 unt/ml pen injector (2 sources) Insulin Analog insulin lispro protamine-insulin lispro (HumaLOG MIX 50/50 KWIKPEN) (50-50) 100 UNIT/ML injection Inject under the skin in the morning and in the evening. Inject with meals. Active levoFLOXacin 750 mg oral tablet (20 sources) Quinolone Antimicrobial Start: 07-23-2023 levoFLOXacin (Levaquin) 750 MG tablet 1 (one) time each day at the same time. 07/23/2023 Active linagliptin 5 mg oral tablet (2 sources) Dipeptidyl Peptidase 4 Inhibitor take 1 tablet by mouth once daily linaGLIPtin (Tradjenta) 5 MG tablet Take 5 mg by mouth Daily Active loratadine 10 mg disintegrating oral tablet (2 sources) take 1 tablet by mouth once daily loratadine (Claritin Reditabs) 10 MG disintegrating tablet Take 10 mg by mouth Daily Active magnesium oxide 500 mg oral tablet (20 sources) Start: 08-28-2020 take 500 mg by mouth three times daily magnesium oxide 500 mg, Oral, TID, Refills(s) 0, Prophylaxis Start Date: 08/28/20 Status: Ordered Repeat number: 1 Start: 08-28-2020 take 500 mg by mouth once umang y magnesium oxide 500 mg, Oral, Daily, Refills(s) 0, Prophylaxis Start Date: 08/28/20 Status: Ordered Start: 08-28-2020 magnesium oxid e Oral, Refills(s) 0 Start Date: 08/28/20 Status: Ordered metFORMIN hydrochloride 500 mg oral tablet (19 sources) Biguanide Start: 08-08-2024 take 1 tablet by mouth three times daily metformin 500 mg Tab 500 mg = 1 tab(s), Oral, TID, Refills(s) 0 Start Date: 08/08/24 Status: Ordered Repeat number: 1 Start: 08-28-2020 End: 08-01-2024 take 1 mg [...] oral tablet (20 sources) Dihydropyridine Calcium Channel Charlotte Start: 01-09-2019 take 90 mg by mouth [...] Daily Prior to colonoscopy Per physician's instructions, [facility]/pharmacy #[id number], 185, cm, 03/31/22 9:58:00 EDT, Height/Length Dosing, 101, kg, 03/31/22 9:58:00 EDT, Weight Dosing Start Date: 03/31/22 Status: Ordered Omeprazole (20 sources) Proton Pump Inhibitor Start: 01-09-2019 omeprazole 20 mg, Oral, Daily, Refills(s) 0, Control of stomach acid Start Date: 01/09/19 Status: Ordered Repeat number: 1 Start: 01-09-2019 take 20 mg by mouth twice umang y omeprazole 20 mg, Oral, BID, Refills(s) 0, Control of stomach acid Start Date: 01/09/19 Status: Ordered take 2 capsules by m outh once daily omeprazole (PriLOSEC) [address] capsule Take 2 capsules every day by oral route for 90 days. Active phenazopyridine hydrochloride 100 mg oral tablet (1 source) Start: 10-16-2024 End: 10-30-2024 Pyridium 100 mg Tab 100 mg = 1 tab(s), Oral, TID, Take TID as needed., X 2 week(s), # 42 tab(s), Refills(s) 0, Pharmacy: [facility]/pharmacy #[id number], 185, cm, 10/02/24 11:15:00 EST, Height/Length Dosing, 91, kg, 10/02/24 11:15:00 EST, Weight Dosing Start Date: 10/16/24 Stop Date: 10/30/24 Status: Ordered pioglitazone 30 mg oral tablet (20 sources) Peroxisome Proliferator Receptor alpha Agonist, Peroxisome Proliferator Receptor gamma Agonist, Thiazolidinedione Start: 08-28-2020 pioglitazone 30 mg Tab 45 mg, Oral, Daily, Refills(s) 0, Blood glucose Start Date: 08/28/20 Status: Ordered Repeat number: 1 Start: 08-28-2020 End: 04-10-2025 take 1 tablet by mouth once daily pioglitazone 30 mg Tab 30 mg = 1 tab(s), Oral, Daily, Refills(s) 0, Blood glucose Start Date: 08/28/20 Status: Ordered take 1 tablet by joslyn th once daily pioglitazone (Actos) 45 MG tablet TAKE 1 TABLET BY MOUTH EVERY DAY for 90 Active polyethylene glycol 3350 86557 mg powder for oral solution (2 sources) Osmotic Laxative take 17 g by mouth every twenty-four hours as needed polyethylene glycol, PEG, 3350 (Miralax) 17 g packet Take 17 g by mouth Daily as needed Active Klor-Con (20 sources) Start: 01-09-20 19 Klor-Con 20 mEq, Oral, Daily, Refills(s) 0, Prophylaxis Start Date: 01/09/19 Status: Ordered Repeat number: 1 Start: 01-09-2019 Klor-Con 20 mE q, Oral, Daily, Refills(s) 0, Prophylaxis Start Date: 01/09/19 Status: Ordered take 1 tablet by joslyn th in the morning KLOR-CON 20 MEQ ER tablet Take 1 tablet by mouth in the morning and 1 tablet before bedtime. Active take 20 mEq by mouth once daily potassium chloride (Klor-Con) 20 MEQ packet Take 20 mEq by mouth Daily Active Pred Mild (20 sources) Corticosteroid Start: 01-09-2019 take 1 drop(s) into the eye(s) twice daily Pred Mild 1 drop(s), Eye-Both, BID, Refill(s) 0, Inflammation Start Date: 01/09/19 Status: Ordered Repeat number: 1 Start: 01-09-2019 take 1 drop(s) into the [...] 01/11/2024 08/01/2024 Discontinued (Reorder) Start: 01-09-2019 take [address] [facility] twice daily primidone 50 mg Tab 100 mg = 2 tab(s), Oral, BID, # 30 tab(s), Refills(s) 0, Seizure Start Date: 01/09/19 Status: Ordered Quantity: 30.0 Unit: tab(s) Repeat number: 1 Start: 01-09-2019 take 1 tablet by joslyn once daily at bedtime primidone 50 mg Tab 50 mg = 1 tab(s), Oral, Once a day (at bedtime), # 30 tab(s), Refills(s) 0, Seizure Start Date: 01/09/19 Status: Ordered rivaroxaban 15 mg oral tablet (7 sources) Factor Xa Inhibitor Start: 04-14-2025 take 1 tablet by mouth once daily in the evening Xarelto 15 mg oral tablet 15 mg = 1 tab(s), Oral, qPM, Refills(s) 0 Start Date: 04/14/25 Status: Ordered Repeat number: 1 SITagliptin 100 mg oral tablet (18 sources) Dipeptidyl Peptidase 4 Inhibitor Start: 01-09-2019 take 100 mg by mouth once daily Januvia 100 mg, Oral, Daily, Refill(s) 0, High blood sugar Start Date: 01/09/19 Status: Ordered Repeat number: 1 Spiriva Respimat 1.25 mcg/inh inhalation aerosol (1 source) Start: 01-09-2019 Spiriva Respimat 1.25 mcg/inh inhalation aerosol 2 puff(s), Inhalation, Daily, Refill(s) 0, COPD Start Date: 01/09/19 Status: Ordered spironolactone 25 mg oral tablet (3 sources) Aldosterone Antagonist Start: 04-14-2025 take 1 tablet by mouth once daily spironolactone 25 mg Tab 25 mg = 1 tab(s), Oral, Daily, Refills(s) 0 Start Date: 04/14/25 Status: Ordered Repeat number: 1 60 actuat tiotropium 0.28420 mg/actuat inhalation spray (19 sources) Anticholinergic Start: 01-09-2019 Spiriva Respimat 1.25 mcg/inh inhalation aerosol 2 puff(s), Inhalation, Daily, Refill(s) 0, COPD Start Date: 01/09/19 Status: Ordered Repeat number: 1 take 1 capsule by in halation in the morning tiotropium (Spiriva) [address] 1 capsule into inhaler and inhale in the morning. Active Vitamin D3 2000 intl units (1 source) Start: 04-14-2025 take 2000 [IU] by mouth once daily Vitamin D3 2000 intl units 2,000 unit(s), Oral, Daily, Refills(s) 0 Start Date: 04/14/25 Status: Ordered Repeat number: 1 Completed/Discontinued Medications Medication Drug Class(es) Dates Sig [...] mg/ml / clotrimazole 10 mg/ml topical cream (7 sources) Azole Antifungal, Corticosteroid Start: 08-08-2024 betamethasone-clotrimazole Top 0.05%-1% Crm 15 gram Refill(s) 0 Start Date: 08/08/24 Status: Ordered Repeat number: 1 bifidobacterium infantis 4 mg oral capsule (16 sources) Start: 06-10-2023 End: 08-01-2024 take 1 capsule by mouth once daily Probiotic Product (Align) capsule TAKE 1 CAPSULE BY MOUTH DAILY AFTER COMPLETING THE ANTIBIOTICS COURSE 06/10/2023 08/01/2024 Discontinued Start: 08-28-2020 take 1 capsule by [facility] once daily Align 4 mg oral capsule 4 mg = 1 cap(s), Oral, Daily, Take after completing the Antibiotics course, # 28 cap(s), Refills(s) 0, Pharmacy: [facility]/pharmacy #[id number], 185, cm, 08/28/20 12:05:00 EDT, Height/Length Dosing, 103.7, kg, 08/28/20 12:05:00 EDT, Weight Dosing Start Date: 08/28/20 Status: Ordered cloNIDine hydrochloride 0.2 mg oral tablet (20 sources) Central alpha-2 Adrenergic Agonist Start: 04-18-2025 End: 04-18-2025 Catapres 0.2 mg Tab 0.2 mg = 1 tab(s), Tab, Oral, Start date 04/18/25 9:00:00 AM EDT, 04/16/25 7:30:00 EDT Start Date: 04/18/25 Stop Date: 04/18/25 Status: Completed Repeat number: 1 Start: 01-09-2019 take 0.1 mg by mouth twice daily clonidine 0.1 mg, Oral, BID, Refills(s) 0, High blood pressure Start Date: 01/09/19 Status: Ordered Start: 01-09-2019 End: 04-16-2025 Catapres 0.2 mg Tab 0.2 mg = 1 tab(s), Tab, Oral, Start date 04/16/25 9:00:00 PM EDT, 04/16/25 7:30:00 EDT Start Date: 04/16/25 Stop Date: 04/16/25 Status: Completed Repeat number: 1 labetalol hydrochloride 100 mg oral tablet (20 sources) beta-Adrenergic Charlotte Start: 04-17-2025 End: 04-17-2025 labetalol 100 mg Tab 300 mg = 3 tab(s), Tab, Oral, Start date 04/17/25 10:00:00 PM EDT, 04/16/25 7:36:00 EDT Start Date: 04/17/25 Stop Date: 04/17/25 Status: Completed Repeat number: 1 Start: 04-16-2025 End: 04-16-2025 labetalol 100 mg Tab 300 mg = 3 tab(s), Tab, Oral, Start date 04/16/25 10:00:00 PM EDT, 04/16/25 7:36:00 EDT Start Date: 04/16/25 Stop Date: 04/16/25 Status: Completed Repeat number: 1 Start: 01-09-2019 take 300 mg by mouth three times daily labetalol 300 mg, Oral, TID, Refills(s) 0, High blood pressure Start Date: 01/09/19 Status: Ordered Repeat number: 1 Start: 01-09-2019 take 150 mg by mouth once umang y labetalol 150 mg, Oral, Daily, Refills(s) 0, High blood pressure Start Date: 01/09/19 Status: Ordered Start: 01-09-2019 take 300 mg by mouth once umang y labetalol 300 mg, Oral, Daily, Refills(s) 0, High blood pressure Start Date: 01/09/19 Status: Ordered take 0.5 tablet by m outh twice daily labetalol (Normodyne) 300 MG tablet TAKE 1/2 TABLET BY MOUTH 2 TIMES DAILY Active labetalol 5 mg/mL IV Eda (1 source) Start: 04-14-2025 End: 04-16-2025 labetalol 5 mg/mL IV Eda 5 mg = 1 mL, Injection, IV Push, q15min PRN Other (see comment), Routine, Start date 04/14/25 9:58:00 PM EDT, 04/14/25 21:58:00 EDT Start Date: 04/14/25 Stop Date: 04/16/25 Status: Discontinued Repeat number: 1 psyllium 525 mg oral capsule (20 sources) Start: 08-28-2020 take 8 capsules by mouth once daily Metamucil 525 mg oral capsule 1,050 mg = 2 cap(s), Oral, Daily, Take 2 hour apart from the other medications with at least 8 ounces of water, # 160 cap(s), Refills(s) 1, Pharmacy: [facility]/pharmacy #[id number], 185, cm, 08/28/20 12:05:00 EDT, Height/Length Dosing, 103.7, kg, 08/28/20 12:05:00 EDT, Weight Dosing Start Date: 08/28/20 Status: Ordered Quantity: 160.0 Unit: cap(s) Repeat number: 2 Indications: Other constipation; psyllium (Metamu cil) 58.6 % packet Take 1 packet by mouth Daily Mix and drink with at least 8 ounces of water or juice. Active tamsulosin hydrochloride 0.4 mg oral capsule (20 sources) alpha-Adrenergic [place] Start: 01-09-2019 End: 04-18-2025 Flomax 0.4 mg Cap 0.4 mg = 1 cap(s), Cap, Oral, Start date 04/18/25 9:00:00 AM EDT, 04/15/25 12:49:00 EDT Start Date: 04/18/25 Stop Date: 04/18/25 Status: Completed Repeat number: 1 Problems Active Problems Problem Classification Problem Date Documented Da te Episodic/Chronic Abdominal pain (1 source) Abdominal pain; Translations: [Unspecified abdominal pain] Onset: 10-01-2023 Episodic Acute cerebrovascular disease (1 source) Cerebral infarction; Translations: [Cerebral infarction, unspecified] Onset: 04-14-2025 Chronic Acute cerebrovascular disease (1 source) Acute cerebrovascular disease Onset: 02-14-2025 Anxiety disorders (2 sources) Anxiety disorder, unspecified; Translations: [F41.9] Onset: 04-18-2025 Chronic Asthma (18 sources) Asthma 08-28-2020 Chronic Cardiac dysrhythmias (2 sources) Unspecified atrial fibrillation; Translations: [UNSPECIFIED ATRIAL FIBRILLATION] Onset: 03-08-2023 Chronic Chronic kidney disease (1 source) Chronic kidney disease; Translations: [Chronic kidney disease, unspecified] Onset: 04-14-2025 Chronic Chronic kidney disease (8 sources) Chronic kidney disease; Translations: [CHRONIC KIDNEY DISEASE STAGE 3B] Onset: 07-17-2022 Congestive heart failure; nonhypertensive (3 sources) Heart failure; Translations: [Heart failure, unspecified] Onset: 03-16-2025 Chronic Coronary atherosclerosis and other heart disease (2 sources) Atherosclerotic heart disease of [place] coronary artery without angina pectoris; Translations: [Atherosclerotic heart disease of [place] coronary artery without angina pectoris] Onset: 06-05-2024 Chronic Deficiency and other anemia (1 source) Anemia, unspecified; Translations: [ANEMIA UNSPECIFIED] Onset: 03-04-2023 Episodic Diabetes mellitus with complications (14 sources) Type 2 diabetes mellitus with hyperglycemia; Translations: [Type 2 diabetes mellitus with diabetic chronic kidney disease] Onset: 08-27-2022 09-08-2024 Chronic Diabetes mellitus without complication (20 sources) Diabetes mellitus; Translations: [Type 2 diabetes mellitus without complications] Onset: 04-30-2022 08-28-2020 Chronic Disorders of lipid metabolism (4 sources) Hyperlipidemia, unspecified; Translations: [HYPERLIPIDEMIA UNSPECIFIED] Onset: 04-28-2022 Chronic Diverticulosis and diverticulitis (17 sources) Diverticula of intestine; Translations: [Diverticulosis of intestine, part unspecified, without perforation or abscess without bleeding] Onset: 06-09-2022 Chronic Essential hypertension (3 sources) Essential (primary) hypertension; Translations: [ESSENTIAL PRIMARY HYPERTENSION] Onset: 04-30-2022 Chronic Genitourinary symptoms and ill-defined conditions (3 sources) Post-void dribbling; Translations: [Post-micturition incontinence ] Onset: 12-04-2024 Chronic Genitourinary symptoms and ill-defined conditions (16 sources) Retention of urine; Translations: [Retention of urine, unspecified] Onset: 08-08-2024 Episodic Heart valve disorders (9 sources) Nonrheumatic aortic (valve) stenosis; Translations: [Rheumatic tricuspid insufficiency] Onset: 07-01-2022 Chronic Hemorrhoids (17 sources) Hemorrhoids; Translations: [Unspecified hemorrhoids] Onset: 06-09-2022 Episodic Hyperplasia of prostate (11 sources) Benign prostatic hypertrophy with outflow obstruction; Translations: [Benign prostatic hyperplasia with lower urinary tract symptoms] Onset: 08-08-2024 Chronic Hypertension with complications and secondary hypertension (2 sources) Hypertensive chronic kidney disease with stage 1 through stage 4 chronic kidney disease, or unspecified chronic kidney disease; Translations: [Hypertensive urgency ] Onset: 08-27-2022 Chronic Inflammatory conditions of male genital organs (10 sources) Balanitis; 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] Onset: 08-08-2024 Chronic Late effects of cerebrovascular disease (12 sources) Sequelae of cerebral infarction; Translations: [Unspecified sequelae of cerebral infarction] Onset: 04-10-2025 04-10-2025 Chronic Mycoses (10 sources) Pain in toe; Translations: [Tinea unguium] 09-08-2024 Episodic Nausea and vomiting (11 sources) Nausea; Translations: [Nausea] Onset: 10-01-2023 Episodic Nutritional deficiencies (2 sources) Vitamin D deficiency, unspecified; Translations: [Vitamin D deficiency, unspecified] Onset: 07-05-2024 Chronic Occlusion or stenosis of precerebral arteries (12 sources) Bilateral stenosis of carotid arteries; Translations: [Occlusion and stenosis of bilateral carotid arteries] Onset: 04-10-2025 04-10-2025 Chronic Other aftercare (3 sources) Long-term current use of anticoagulant; Translations: [emt intermediate (current) use of anticoagulants] Onset: 08-08-2024 Episodic Other aftercare (1 source) Long-term current use of drug therapy; Translations: [Other rodent 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 (current) drug therapy] Onset: 04-14-2025 Episodic Other and unspecified benign neoplasm (20 sources) History of polyp of colon; Translations: [Personal history of colonic polyps] Onset: 03-31-2022 Episodic Other and unspecified benign neoplasm (19 sources) Polyp of colon; Translations: [Polyp of [...] Chronic Other diseases of bladder and urethra (7 sources) Overactive bladder 08-08-2024 Chronic Other diseases of kidney and ureters (2 sources) Urinary tract obstruction; Translations: [Other obstructive and reflux uropathy] Onset: 09-25-2024 Episodic Other gastrointestinal disorders (18 sources) Chronic constipation with overflow 08-28-2020 Episodic Other gastrointestinal disorders (4 sources) Other fecal abnormalities; Translations: [OTHER FECAL ABNORMALITIES] Onset: 02-27-2023 Episodic Other gastrointestinal disorders (17 sources) Urgent desire for stool; Translations: [Fecal urgency] Onset: 04-13-2023 Episodic Other gastrointestinal disorders (2 sources) Abnormal feces; Translations: [Other fecal abnormalities] Onset: 04-13-2023 Episodic Other gastrointestinal disorders (15 sources) Loose stool 04-13-2023 Episodic Other gastrointestinal disorders (13 sources) Abdominal wind pain; Translations: [Gas pain] Onset: 06-10-2023 Episodic Other gastrointestinal disorders (2 sources) Constipation, unspecified; Translations: [Constipation, unspecified] Onset: 10-01-2023 Episodic Other gastrointestinal disorders (10 sources) Constipation 10-01-2023 Episodic Other gastrointestinal disorders (1 source) Other constipation; Translations: [Other constipation] Onset: 04-15-2025 Episodic Other hereditary and degenerative nervous system conditions (20 sources) Essential tremor; Translations: [Essential tremor] Onset: 01-07-2024 01-07-2024 Chronic Other lower respiratory disease (2 sources) Shortness of breath; Translations: [Shortness of breath] Onset: 03-16-2025 Episodic Other male genital disorders (10 sources) Acquired buried penis; Translations: [Acquired buried [...] keratosis; Translations: [Other seborrheic keratosis] 08-24-2024 Episodic Rosaura-; endo-; and myocarditis; cardiomyopathy (except that caused by tuberculosis or sexually transmitted disease) (1 source) Pericardial effusion - noninflammatory; Translations: [Other pericardial effusion (noninflammatory)] Onset: 04-14-2025 Episodic Phlebitis; thrombophlebitis and thromboembolism (1 source) History of thromboembolism of vein; Translations: [Personal history of other venous thrombosis and embolism] Onset: 04-14-2025 Episodic Pulmonary heart disease (4 sources) Pulmonary [...] organs] Onset: 03-31-2022 Episodic Residual codes; unclassified (18 sources) Family history of cancer of colon 03-31-2022 Episodic Residual codes; unclassified (1 source) Pain, unspecified; Translations: [Pain, unspecified] Onset: 02-15-2025 Episodic Unclassified (4 sources) CHRN KIDNEY DISEASE STG 3 UNSP; Translations: [CHRN KIDNEY DISEASE STG 3 UNSP] Onset: 08-27-2022 Unclassified (3 sources) CONTACT W/AND (SUSP) EXPOS COVID-19; Translations: [CONTACT W/AND (SUSP) EXPOS COVID-19] Onset: 06-19-2022 Unclassified (1 source) COUGH, UNSPECIFIED; Translations: [COUGH, UNSPECIFIED] Onset: 06-19-2022 Unclassified (10 sources) Finding of sensation of abdomen 10-01-2023 Unclassified (7 sources) Drug therapy finding 08-08-2024 Unclassified (2 [...] Onset: 04-30-2022 Episodic Other aftercare (1 source) detention (current) use of aspirin; Translations: [SNF CURRENT USE OF ASPIRIN] Onset: 08-27-2022 Episodic Other aftercare (1 source) emt intermediate (current) use of anticoagulants; Translations: [CARTOGRAPHIC AIDE CURRNT USE ANTICOAGULANTS] Onset: 08-27-2022 Episodic Other aftercare (1 source) Other correction (current) drug therapy; Translations: [OTH SNF CURRENT DRUG THERAPY] Onset: 08-27-2022 Episodic Other [...] Test Name Value Interpretation Reference Range Facility 36on 05-04-2025 36 Lvm to reschedule patients nephrology appointment. Advised at this time, the appointment will be cancelled and to call back to reschedule. Normal [facility] Coding Queryon 05-02-2025 Coding Query Coding Query From: Alberto OTERO, Lay To: Anai URIARTE; Cc: Ginny Talamantes; Sent: 04/30/2025 07:31:14 EDT ! Subject: Coding Query Due Date/Time: 05/01/2025 07:30:00 EDT Caller Name: NADIR BETH; Caller Number: Sergio , M Documentation in the medical record indicates this patient has been admitted with or diagnosed as having: Altered mental status The following is also documented in the medical record: dc [id number] male who was admitted to the hospital with altered mental status and workup for CVA. Went an MRI of the brain which showed probable T2 shine through and minimal acute/subacute ischemic lacunar infarcts. Pt did have HTN urgency on admission likely due to acute CVA. Based on your medical judgment, can you please clarify any underlying cause of the above clinical indicators/diagnosis? Respond back with all that apply: [___]Transient cerebral ischemic attack, unspecified [___]Metabolic encephalopathy [___]Hypertensive encephalopathy [___]Encephalopathy, unspecified [___]Other encephalopathy [___]Late effect of stroke: other sequelae of other cerebrovascular disease [___]Late effect of stroke: other sequelae following unspecified cerebrovascular disease [___]Cerebral infarction due to unspecified occlusion or stenosis of unspecified cerebral artery [___]Cerebral infarction due to thrombosis of unspecified cerebral artery [___]Cerebral infarction due to embolism of unspecified cerebral artery [___]Other specified cerebrovascular diseases: [___]Other (please specify): Present on Admission [___] Y = Diagnosis was present at time of inpatient admission [___] N = Diagnosis was not present at time of inpatient admission [___] U = Documentation insufficient to determine if the condition was present at the time of inpatient admission [___] W = Clinically undetermined. Provider unable to clinically determine whether the condition was present at the time of inpatient admission In responding to this request, please exercise your independent professional judgement. The fact that a question is asked does not imply that any particular answer is desired or expected. Thank you! Lay [phone] From: Anai URIARTE To: Alberto OTERO, Lay; Sent: 05/02/2025 17:29:45 EDT Subject: RE: Coding Query Caller Name: NADIR BETH; Caller Number: Sergio , M MRI of the brain which showed probable T2 shine through and minimal acute/subacute ischemic lacunar infarcts. likely embolic Normal [facility] Coding Query Coding Query From: Lay Dominguez RN To: Anai URIARTE; Cc: Ginny Talamantes; Sent: 04/30/2025 07:22:48 EDT ! Subject: Coding Query Due Date/Time: 05/01/2025 07:22:00 EDT Caller Name: NADIR BETH; Caller Number: Sergio , M Documentation in the medical record indicates this patient has been admitted with or diagnosed as having: chronic kidney disease The following is also documented in the medical record: Other: 04/18/2025 eGFR 42 04/14/2025 eGFR 36 04/13/2023 eGFR 37 Based on your medical judgment, can you please clarify which, if any, of the following conditions are present? Respond back with any that apply: [___]Chronic Kidney Disease Stage 3b (GFR 30-44) [___]Other (please specify): * Chronic Kidney Disease Staging Recommendation Based on KDIGO 2012 Guidelines In responding to this request, please exercise your independent professional judgement. The fact that a question is asked does not imply that any particular answer is desired or expected. Thank you! Lay [phone] From: Anai URIARTE To: Lay Dominguez RN; Sent: 05/02/2025 17:26:51 EDT Subject: RE: Coding Query Caller Name: NADIR BETH; Caller Number: Sergio , M CKD stage 3B Normal [facility] Coding Query Coding Query From: Lay Dominguez RN To: Anai URIARTE; Cc: Ginny Talamantes; Sent: 04/30/2025 07:17:51 EDT ! Subject: Coding Query Due Date/Time: 05/01/2025 07:17:00 EDT Caller Name: NADIR BEHT; Caller Number: Sergio , Jim Documentation in the medical record indicates that this patient has been identified to have and/or is being treated for wound/ulcer of the following site (one distinct site per query): Other: 04/16 interdisciplinary note-pt has a stasis ulcer on left lower leg. 1.2cm long by 1.2cm wide by 0.1 depth. staff can continue with antibiotic ointment, or may use maya and dry dressing change every other day. follow up out patient wound clinic Based on your clinical judgment, please clarify the ulcer type: Chronic Ulcer (Non-Pressure) of Skin, Underlying Condition: [___]Atherosclerosis [___]Chronic Venous Hypertension [___]Diabetic Ulcer [___]Varicose Ulcer Severity of Chronic Skin (Non-Pressure) Ulcer: [___]Limited to Skin [___]With other specified severity [___]Unspecified [___]Skin Failure due to underlying coagulopathy and microvascular changes due to COVID-19 [___]Location: [___]Other (please specify): Present on Admission [___] Y = Diagnosis was present at time of inpatient admission [___] N = Diagnosis was not present at time of inpatient admission [___] U = Documentation insufficient to determine if the condition was present at the time of inpatient admission [___] W = Clinically undetermined. Provider unable to clinically determine whether the condition was present at the time of inpatient admission In responding to this request, please exercise your independent professional judgement. The fact that a question is asked does not imply that any particular answer is desired or expected. Thank you! 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 Cisneros on 05/03/2025. [facility] 36on 04-18-2025 36 Patient's daughter called to make you aware he had a stroke and was admitted to [facility]. He will be discharged today to SNF. He's scheduled for heart cath with you 05/10. Daughter wants to know if you still want him to have this or if he needs pushed out? Do you need to see him prior to this? Please advise. Thanks. [facility] BMPon 04-18-2025 Anion gap [Moles/Vol] 12 mmol/L Normal - [facility] Comment on above: Performed By: #### 2 [id number] #### [facility] [address] [place] [address] BUN/Creat Ratio 22 No Units High 10-20 [facility] Comment on above: Performed By: #### 2 [id number] #### [facility] [address] [place] [address] Calcium [Mass/Vol] 8.7 mg/dL Low 8.9-11.1 [facility] Comment on above: Performed By: #### 2 [id number] #### [facility] [address] [place] [address] Chloride [Moles/Vol] 102 mmol/L Normal 101-111 [facility] Comment on above: Performed By: #### 2 [id number] #### [facility] [address] [place] [address] CO2 [Moles/Vol] 27 mmol/L Normal 21-31 [facility] Comment on above: Performed By: #### 2 [id number] #### [facility] [address] [place] [address] Creatinine [Mass/Vol] 1.6 mg/dL High 0.5-1.3 [facility] Comment on above: Performed By: #### 2 [id number] #### [facility] [address] [place] [address] Glucose [Mass/Vol] 233 mg/dL High 55-199 [facility] Comment on above: Performed By: #### 2 [id number] #### [facility] [address] [place] [address] Potassium [Moles/Vol] 4.3 mmol/L Normal 3.5-5.3 [facility] Comment on above: Performed By: #### 2 [id number] #### [facility] [address] [place] [address] Sodium [Moles/Vol] 137 mmol/L Normal 135-145 [facility] Comment on above: Performed By: #### 2 [id number] #### [facility] [address] [place] [address] Urea nitrogen [Mass/Vol] 35 mg/dL High 5-21 [facility] Comment on above: Performed By: #### 2 [id number] #### [facility] [address] [place] [address] CBC w/ Auto Diffon 5 Basophil Absolute 0.0 E9/L Normal 0.0-0.2 [facility] Comment on above: Performed By: #### 2 [id number] #### [facility] [address] [place] [address] Basophils/100 WBC (Bld) 0.4 % Normal 0.0-2.0 [facility] Comment on above: Performed By: #### 2 [id number] #### [facility] [address] [place] [address] Eos Absolute 0.2 E9/L Normal 0.0-0.5 [facility] Comment on above: Performed By: #### 2 [id number] #### [facility] [address] [place] [address] Eosinophils/100 WBC (Bld) 2.3 % Normal 0.0-8.0 [facility] Comment on above: Performed By: #### 2 [id number] #### [facility] [address] [place] [address] Erythrocyte distribution width (RBC) [Ratio] 20.0 % High 10.9-14.2 [facility] Comment on above: Performed By: #### 2 [id number] #### [facility] [address] [place] [address] Hematocrit (Bld) [Volume fraction] 33.0 % Low 37.7-49.0 [facility] Comment on above: Performed By: #### 2 [id number] #### [facility] [address] [place] [address] Hemoglobin (Bld) [Mass/Vol] 10.6 g/dL Low 13.5-17.5 [facility] Comment on above: Performed By: #### 2 [id number] #### [facility] [address] [place] [address] Lymph Absolute 0.7 E9/L Low 1.0-4.0 [facility] Comment on above: Performed By: #### 2 [id number] #### [facility] [address] [place] [address] Lymphocytes/100 WBC (Bld) 9.6 % Low 14.0-50.0 [facility] Comment on above: Performed By: #### 2 [id number] #### [facility] [address] [place] [address] MCH (RBC) [Entitic mass] 27.3 pg Normal 27.0-34.0 [facility] Comment on above: Performed By: #### 2 [id number] #### [facility] [address] [place] [address] MCHC (RBC) [Mass/Vol] 32.2 g/dL Normal 31.4-36.0 [facility] Comment on above: Performed By: #### 2 [id number] #### [facility] [address] [place] [address] MCV (RBC) [Entitic vol] 84.6 fL Normal 80.0-100.0 [facility] Comment on above: Performed By: #### 2 [id number] #### [facility] [address] [place] [address] [place] Absolute 0.9 E9/L Normal 0.2-1.0 [facility] Comment on above: Performed By: #### 2 [id number] #### [facility] [address] [place] [address] Monocytes/100 WBC (Bld) 11.6 % Normal 4.0-14.0 [facility] Comment on above: Performed By: #### 2 [id number] #### [facility] [address] [place] [address] Neutro Absolute 5.7 E9/L Normal 2.0-7.5 [facility] Comment on above: Performed By: #### 2 [id number] #### [facility] [address] [place] [address] Neutro Auto 76.1 % High 36.0-75.0 [facility] Comment on above: Performed By: #### 2 [id number] #### [facility] [address] [place] [address] Platelet 234.0 E9/L Normal 150.0-500.0 [facility] Comment on above: Performed By: #### 2 [id number] #### [facility] [address] [place] [address] Platelet mean volume (Bld) [Entitic vol] 9.0 fL Normal 6.4-10.8 [facility] Comment on above: Performed By: #### 2 [id number] #### [facility] [address] [place] [address] RBC 3.9 E12/L Low 4.3-5.9 [facility] Comment on above: Performed By: #### 2 [id number] #### [facility] [address] [place] [address] WBC 7.5 E9/L Normal 4.0-11.0 [facility] Comment on above: Performed By: #### 2 [id number] #### [facility] [address] [place] [address] CHEMISTRYOrdered By: Lab ROP User on 04-18-2025 Glucose [Mass/Vol] 204 mg/dL High 55 - 99 mg/dL [facility] [place] Sub[place] Comment on above: Result Comment: Tommie cortes RN/ POC Device SN [id number] Invalid Interpretation Code [facility] Subsection POC Username BOGDAN WORKMAN Invalid Interpretation Code [facility] Subsection Sodium [Moles/Vol] [id number] mmol/L Invalid Interpretation Code [facility] Subsection Glucose [Mass/Vol] 212 mg/dL High 55 - 99 mg/dL [facility] Subsection Comment on above: Result Comment: Tommie cortes RN/ POC Device SN [id number] Invalid Interpretation Code [facility] Subsection POC Username BOGDAN WORKMAN Invalid Interpretation Code [facility] Subsection Sodium [Moles/Vol] [id number] mmol/L Invalid Interpretation Code [facility] Subsection CHEMISTRYOrdered By: SYSTEM SYSTEM on 04-18-2025 Anion gap [Moles/Vol] 12 mmol/L Normal 6 - 16 mEq/L R emisol Chem Calcium [Mass/Vol] 8.7 mg/dL Low 8.9 - 11. 1 mg/dL [facility] Chloride [Moles/Vol] 102 mmol/L Normal 101 - 1 11 mmol/L [facility] CO2 [Moles/Vol] 27 mmol/L Normal 21 - 31 mmol/L [facility] Creatinine [Mass/Vol] 1.6 mg/dL High 0.5 - 1.3 mg/dL [facility] GFR/1.73 sq M.predicted MDRD (S/P/Bld) [Vol rate/Area] 42 mL/min/1.73 m2 Low >=59mL/min/1 .73 m2 Rem[facility] Glucose [Mass/Vol] 233 mg/dL High 55 - 199 mg/dL [facility] Potassium [Moles/Vol] 4.3 mmol/L Normal 3.5 - 5.3 mmol/L [facility] Sodium [Moles/Vol] 137 mmol/L Normal 135 - 145 mmol/L [facility] Urea nitrogen [Mass/Vol] 35 mg/dL High 5 - 21 mg/dL [facility] Urea nitrogen/Creatinine [Mass ratio] 22 mg/mg High 10 - 20 [facility] Capillary Glucose POCon Glucose [Mass/Vol] 204 mg/dL High 55-99 [facility] Comment on above: Result Comment: Tommie cortes RN/ Performed By: #### 2 [id number] ####[facility] [id number] [place] [address] Glucose [Mass/Vol] 212 mg/dL High 55-99 [facility] Comment on above: Result Comment: Tommie HAGEN Performed By: #### 2 [id number] #### [facility] [address] [place] [address] Discharge Note-Nursingon Discharge Note-Nursing Discharge Note-Nursing MEHNAZ BETHCONNIE Hamilton :1940 Visit Date:04/14/2025 Inpatient Discharge Instructions Your Care Team Admitting Physician - Layne VERDUGO DO Consulting Physician - Aaron GUSTAFSON, [place] [facility] [place]ound, XXXX Reason for Your Visit AMS Your Diagnosis CVA (cerebrovascular accident) Atrial fibrillation Hypertensive urgency Pericardial effusion Congestive heart failure Chronic kidney disease Essential tremor DM2 (diabetes mellitus, type 2) BPH with urinary obstruction On deep vein thrombosis (DVT) prophylaxis History of DVT in adulthood Altered mental status Anxiety Chronic constipation with overflow Headache Potential stroke Tests Performed Brain MRI w/o Contrast CT Chest w/o Contrast CT Head or Brain w/o Contrast CTA Head CTA Neck Echo Transthoracic Complete XR Chest Single View This Is Your Medications List alprazolam (Xanax 0.25 mg Tab) aspirin bacitracin topical (bacitracin top 500 units/g Oint PACKET) betamethasone-clotrima zole topical (betamethasone-clotrim azole Top 0.05%-1% Crm 15 gram) budesonide-formoterol (Symbicort) cetirizine (cetirizine 10 mg Tab) cholecalciferol (Vitamin D3 2000 intl units) clonidine dicyclomine empagliflozin (Jardiance 10 mg oral tablet) ezetimibe (Zetia) furosemide (Lasix 20 mg Tab) glimepiride labetalol magnesium oxide metformin (metformin 500 mg Tab) multivitamin (B Complex with Vitamin C Gummy oral tablet, chewable) omeprazole pioglitazone (pioglitazone 30 mg Tab) potassium chloride (Klor-Con) prednisoLONE ophthalmic (Pred Mild) primidone (primidone 50 mg Tab) psyllium (Daily Fiber Sugar-Free) psyllium (Metamucil 525 mg oral capsule) rivaroxaban (Xarelto 15 mg oral tablet) sitagliptin (Januvia) spironolactone (spironolactone 25 mg Tab) tamsulosin (Flomax) tiotropium (Spiriva Respimat 1.25 mcg/inh inhalation aerosol) [Image Removed: STOP]Stop taking these medications NIFEdipine acyclovir apixaban (Eliquis) ferrous sulfate gabapentin hydrALAZINE metoclopramide mupirocin topical (mupirocin Top 2% Crm) Procedure History Colonoscopy (05/11/2022), Cardioversion (01/11/2017), Back, Cholecystectomy, Colonoscopy, History of hernia repair, Tonsillectomy. Discharge Vitals Temperature (Oral) 36.3 ???C Heart Rate (Monitored) 63 Respiratory Rate 16 Blood Pressure 138/66 What to do next Instructions From Your Doctor Event Name Event Result Discharge Diet(s) Calorie Controlled- 1800 Calorie Diet Pending Diagnostic Test Results None Previously Scheduled Follow-Up Appointments Wednesday 11:40 AM EDT With: LU OLMEDO PA-C Where: [facility] [address] [address]- New Follow Up Appointments after Discharge Follow Up with Neurology When: Within 2 to 4 weeks Comments: Call for followup appointment Where: [phone] Medications What How Much When Why Instructions Next Dose New bacitracin topical (bacitracin top 500 units/ g Oint PACKET) Topical 2 times a day Tonight at 9:00 PM Changed alprazolam (Xanax 0.25 mg Tab) 1 Tablets By Mouth Every 8 hours as needed for as needed for anxiety Anxiety Printed Prescription As needed Changed furosemide (Lasix 20 mg Tab) 1 Tablets By Mouth Every day 04/19/2025 Unchanged aspirin 81 Milligram By Mouth Every day 04/19/2025 Unchanged betamethasone-clotrima zole topical (betamethasone-clotrim azole Top 0.05%-1% Crm 15 gram) Resume as directed Unchanged budesonide-formoterol (Symbicort) 80-4.5 mcg/actuation Inhalation 2 times a day Tonight at 9:00 PM Unchanged cetirizine (cetirizine 10 mg Tab) 1 Tablets By Mouth Every day Resume 04/19/2025 Unchanged cholecalciferol (Vitamin D3 2000 intl units) 2,000 Units By Mouth Every day Resume 04/19/2025 Unchanged clonidine 0.2 Milligram By Mouth 2 times a day Tonight at 9:00 PM Unchanged dicyclomine 10 Milligram By Mouth 2 times a day Resume tonight at 9:00 PM Unchanged empagliflozin (Jardiance 10 mg oral tablet) 25 Milligram By Mouth Once a day (in the morning) 04/19/2025 Unchanged ezetimibe (Zetia) 10 Milligram By Mouth Every day 04/19/2025 Unchanged glimepiride 8 Milligram By Mouth Every day Resume 04/19/2025 Unchanged labetalol 300 Milligram By Mouth 3 times a day Tonight at 10:00 PM Unchanged magnesium oxide 500 Milligram By Mouth 3 times a day Resume tonight at 10:00 PM Unchanged metformin (metformin 500 mg Tab) 1 Tablets By Mouth 3 times a day Resume tonight at 10:00 PM Unchanged multivitamin (B Complex with Vitamin C Gummy oral tablet, chewable) 1 Tablets Chewed Every day 04/19/2025 Unchanged omeprazole 20 Milligram By Mouth Every day 04/19/2025 Unchanged pioglitazone (pioglitazone 30 mg Tab) 45 Milligram By Mouth Every day Resume 04/19/2025 Unchanged potassium chloride (Klor-Con) 20 Milliequivalent By Mouth Every day 04/19/2025 (more content not included)... Normal [facility] HEMATOLOGYOrdered By: SYSTEM SYSTEM on 04-18-2025 Basophils/100 WBC (Bld) 0.4 % Normal 0.0 - 2.0 % Remisol Heme Basophils/Leukocytes Auto (Bld) [Pure # fraction] 0.0 E9/L Normal 0.0 - 0.2 E9/L Remisol Heme Eosinophils (Bld) [#/Vol] 0.2 E9/L Normal 0.0 - 0.5 E9/L Remisol Heme Eosinophils/100 WBC (Bld) 2.3 % Normal 0.0 - 8.0 % Remisol Heme Erythrocyte distribution width (RBC) [Ratio] 20.0 % High 10.9 - 14.2 % Remisol Heme Hematocrit (Bld) [Volume fraction] 33.0 % Low 37.7 - 49.0 % Remisol Heme Hemoglobin (Bld) [Mass/Vol] 10.6 g/dL Low 13.5 - 17.5 gm/dL Remisol Heme Lymphocytes (Bld) [#/Vol] 0.7 E9/L Low 1.0 - 4.0 E9/L Remisol Heme Lymphocytes/100 WBC (Bld) 9.6 % Low 14.0 - 50.0 % Remisol Heme MCH (RBC) [Entitic mass] 27.3 pg Normal 27.0 - 34.0 pg Remisol Heme MCHC (RBC) [Mass/Vol] 32.2 g/dL Normal 31.4 - 36.0 gm/dL Remisol Heme MCV (RBC) [Entitic vol] 84.6 fL Normal 80.0 - 100.0 fL Remisol Heme Monocytes (Bld) [#/Vol] 0.9 E9/L Normal 0.2 - 1.0 E9/L Remisol Heme Monocytes/100 WBC (Bld) 11.6 % Normal 4.0 - 14.0 % Remisol Heme Neutrophils (Bld) [#/Vol] 5.7 E9/L Normal 2.0 - 7.5 E9/L Remisol Heme Neutrophils/100 WBC (Bld) 76.1 % High 36.0 - 75.0 % Remisol Heme Platelet mean volume (Bld) [Entitic vol] 9.0 fL Normal 6.4 - 10.8 fL Remisol Heme Platelets (Bld) [#/Vol] 234.0 E9/L Normal 150.0 - 500.0 E9/L Remisol Heme RBC (Bld) [#/Vol] 3.9 E12/L Low 4.3 - 5.9 E12/L Remisol Heme WBC corrected for nucl RBC Auto (Bld) [#/Vol] 7.5 E9/L Normal 4.0 - 11.0 E9/L Remisol Heme Inpatient Clinical Summaryon 04-18-2025 Inpatient Clinical Summary Inpatient Clinical Summary [address] [address] Clinical Summary Person Information: Name: NADIR BETH Age: 85 Years : 1940 Sex: Male PCP: Van Youssef MD Marital Status: Race: White Ethnicity: Non- or Language: Jamaican Visit Id: Visit Reason: Altered mental status; Headache; Potential stroke; stroke Speciality: Acuity: Enc Type: Inpatient Med Service: Medical Arrival: 04/14/2025 16:53:36 Discharge: Dispo Type: Admitted as IP to this Hosp Address: [address] [place] [id number] Provider Notes: Diagnosis: 1:CVA (cerebrovascular accident); 2:Atrial fibrillation; 3:Hypertensive urgency; 4:Pericardial effusion; 5:Congestive heart failure; 6:Chronic kidney disease; 7:Essential tremor; 8:DM2 (diabetes mellitus, type 2); 9:BPH with urinary obstruction; 10:On deep vein thrombosis (DVT) prophylaxis; 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; Chronic constipation with overflow Problems Active Post-void dribbling Gross hematuria BPH with urinary obstruction OAB (overactive bladder) Acquired buried penis Incomplete bladder emptying Anticoagulated Balanitis Nausea Abdominal cramping Constipation Gas pain Fecal urgency Hemorrhoids Diverticulosis Colon polyps Family history of colon cancer History of colon polyps Chronic constipation with overflow Asthma Diabetes Smoking Status: Never Smoker Functional Status: Sensory Deficits: History of Falls: Mobility Assistance Prior to Admission: ADLs: Moderate assistance Current Level of Assistance for Self-Care/Mobility: Cognitive Status: Disoriented x 3 Allergies Contrast Dye (Unknown) Nitroglycerin Patch (Unknown) statins (Unknown) Nitro TD Patch-A (Unknown) aminolevulinic acid (Unknown) simvastatin (elevated liver enzymes) Measurements: Height: 182.88 cm Weight: 76.3 kg Blood Pressure: 138 mmHg / 66 mmHg BMI: 24.31 kg/m2 Procedures No Procedures Performed or Documented Immunizations No Immunizations Documented This Visit Final Med List: alprazolam (Xanax 0.25 mg Tab) 1 Tablets By Mouth every 8 hours as needed as needed for anxiety. Refills: 0. aspirin 81 Milligram By Mouth every day. bacitracin topical (bacitracin top 500 units/g Oint PACKET) Topical 2 times a day. betamethasone-clotrima zole topical (betamethasone-clotrim azole Top 0.05%-1% Crm 15 gram) budesonide-formoterol (Symbicort) 80-4.5 mcg/actuation Inhalation 2 times a day. cetirizine (cetirizine 10 mg Tab) 1 Tablets By Mouth every day. cholecalciferol (Vitamin D3 2000 intl units) 2,000 Units By Mouth every day. clonidine 0.2 Milligram By Mouth 2 times a day. dicyclomine 10 Milligram By Mouth 2 times a day. empagliflozin (Jardiance 10 mg oral tablet) 25 Milligram By Mouth once a day (in the morning). ezetimibe (Zetia) 10 Milligram By Mouth every day. furosemide (Lasix 20 mg Tab) 1 Tablets By Mouth every day. glimepiride 8 Milligram By Mouth every day. labetalol 300 Milligram By Mouth 3 times a day. magnesium oxide 500 Milligram By Mouth 3 times a day. metformin (metformin 500 mg Tab) 1 Tablets By Mouth 3 times a day. multivitamin (B Complex with Vitamin C Gummy oral tablet, chewable) 1 Tablets Chewed every day. omeprazole 20 Milligram By Mouth every day. pioglitazone (pioglitazone 30 mg Tab) 45 Milligram By Mouth every day. potassium chloride (Klor-Con) 20 Milliequivalent By Mouth every day. prednisoLONE ophthalmic (Pred Mild) 1 Drops Both eyes 2 times a day. primidone (primidone 50 mg Tab) 2 Tablets By Mouth 2 times a day. psyllium (Daily Fiber Sugar-Free) 3 capsules By Mouth every day. psyllium (Metamucil 525 mg oral capsule) 2 Capsules By Mouth every day. Take 2 hour apart from the other medications with at least 8 ounces of water. Refills: 1. rivaroxaban (Xarelto 15 mg oral tablet) 1 Tablets By Mouth once a day (in the evening). sitagliptin (Januvia) 100 Milligram By Mouth every day. spironolactone (spironolactone 25 mg Tab) 1 Tablets By Mouth every day. tamsulosin (Flomax) 0.4 Milligram By Mouth every day. tiotropium (Spiriva Respimat 1.25 mcg/inh inhalation aerosol) 2 Puffs Inhalation every day. Care Team Members: Attending Physician: Layne VERDUGO DO Consulting Physician: Clover Walker MD; [facility] [place] Referring Physician: Follow up: With: Address: When: Neurology [phone] Within 2 to 4 weeks Comments: Call for followup appointment Type Location Start [place] [facility] Office [place] [facility] [place] 06/11/2025 11:40 AM 06/11/2025 12:00 PM Confirmed Patient Education Information: Type 2 Diabetes Mellitus, Diagnosis, Adult; Atrial Fibrillation; Core Measures: Stroke (Cerebrovascular Accident) [facility] (Custom) Normal [facility] Inpatient Patient Summaryon 04-18-2025 Inpatient Patient Summary Inpatient Patient Summary [place] [address] Patient Discharge Instructions PERSON INFORMATION Name: NADIR BTEH Date of : 1940 Current Date: 04/18/2025 12:27:53 PHYSICIANS Admitting Physician: Layne VERDUGO DO Primary Care Physician: Van Youssef MD PCP Comment: Discharge Diagnosis: 1:CVA (cerebrovascular accident); 2:Atrial fibrillation; 3:Hypertensive urgency; 4:Pericardial effusion; 5:Congestive heart failure; 6:Chronic kidney disease; 7:Essential tremor; 8:DM2 (diabetes mellitus, type 2); 9:BPH with urinary obstruction; 10:On deep vein thrombosis (DVT) prophylaxis; 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; Chronic constipation with overflow Condition at Discharge: Stable NADIR BETH has been given the following list of follow-up instructions, prescriptions, and patient education materials: PATIENT FOLLOW-UP INFORMATION Diet: Calorie Controlled- 1800 Calorie Diet Discharge Activity: Discharge Restrictions: Wound Care Instructions: Remove Your Dressing In Days Call Your Doctor For: IF UNABLE TO CONTACT YOUR PHYSICIAN AND YOU FEEL IT IS AN EMERGENCY, GO TO THE NEAREST EMERGENCY ROOM OR CALL 911 Home Treatment: Devices/Equipment: Blood glucose monitor Special Services: Additional Instructions: Primary Care Physician to provide the following pending test results: None Follow up: With: Address: When: Neurology [phone] Within 2 to 4 weeks Comments: Call for followup appointment In the event that this physician does not participate in your insurance network, please consult with your insurance company to find a nearby participating provider. Type Location Start [facility] Office Visit [facility] [place] 06/11/2025 11:40 AM 06/11/2025 12:00 PM Confirmed Comment: KIRIT Mixon RONALD L, have received the attached patient education materials/instructions and have verbalized understanding: Patient Signature Date Clinican/Nurse Signature ___ Date HERE ARE THE MEDICATION CHANGES THAT OCCURRED DURING YOUR HOSPITAL STAY New Medications Other Medications bacitracin topical (bacitracin top 500 units/g Oint PACKET) Topical 2 times a day. Last Dose: ___Next Dose: ___ Medications to Continue Taking That Have Changed Printed Prescriptions START: alprazolam (Xanax 0.25 mg Tab) 1 Tablets By Mouth every 8 hours as needed as needed for anxiety. Refills: 0. Last Dose: ___Next Dose: ___ STOP: alprazolam (Xanax 0.25 mg Tab) 1 Tablets By Mouth every 8 hours as needed as needed for anxiety. Other Medications START: furosemide (Lasix 20 mg Tab) 1 Tablets By Mouth every day. Last Dose: ___Next Dose: ___ STOP: furosemide (Lasix 80 mg Tab) By Mouth every day. STOP: furosemide (Lasix) 40 Milligram. Medications to Continue with No Changes Other Medications aspirin 81 Milligram By Mouth every day. Last Dose: ___Next Dose: ___ betamethasone-clotrima zole topical (betamethasone-clotrim azole Top 0.05%-1% Crm 15 gram) Last Dose: ___Next Dose: ___ budesonide-formoterol (Symbicort) 80-4.5 mcg/actuation Inhalation 2 times a day. Last Dose: ___Next Dose: ___ cetirizine (cetirizine 10 mg Tab) 1 Tablets By Mouth every day. Last Dose: ___Next Dose: ___ cholecalciferol (Vitamin D3 2000 intl units) 2,000 Units By Mouth every day. Last Dose: ___Next Dose: ___ clonidine 0.2 Milligram By Mouth 2 times a day. Last Dose: ___Next Dose: ___ dicyclomine 10 Milligram By Mouth 2 times a day. Last Dose: ___Next Dose: ___ empagliflozin (Jardiance 10 mg oral tablet) 25 Milligram By Mouth once a day (in the morning). Last Dose: ___Next Dose: ___ ezetimibe (Zetia) 10 Milligram By Mouth every day. Last Dose: ___Next Dose: ___ glimepiride 8 Milligram By Mouth every day. Last Dose: ___Next Dose: ___ labetalol 300 Milligram By Mouth 3 times a day., 150mg BID Last Dose: ___Next Dose: ___ magnesium oxide 500 Milligram By Mouth 3 times a day. Last Dose: ___Next Dose: ___ metformin (metformin 500 mg Tab) 1 Tablets By Mouth 3 times a day. Last Dose: ___Next Dose: ___ multivitamin (B Complex with Vitamin C Gummy oral tablet, chewable) 1 Tablets Chewed every day. Last Dose: ___Next Dose: ___ omepra (more content not included)... Normal [facility] Interdisciplinary Note - Zachery e Manageron 04-18-2025 Interdisciplinary Note - [employer] Repairer Interdisciplinary Note - [employer] Repairer Patient awake and alert eating breakfast in bed. and dtr at bedside. Patient has been accepted to [facility], patient has completed 3MN and can dc when medically clear. and [place] transport [place] Patient will dc today. Denies any further concerns. Normal [facility] Comment on above: Result Comment: Elec tronically Signed By: Jihan De Oliveira\.br\Date and Time Signed: 04/18/25 09:36 EDT eGFRon 04-18-2025 eGFR 42 mL/min/1.73 m2 Low >=59 [facility] Comment on above: Performed By: #### 1 [id number] #### [facility] [address] [place] [address] BMPon 04-17-2025 Anion gap [Moles/Vol] 15 mmol/L Normal 6-16 [facility] Comment on above: Performed By: #### 2 [id number] #### [facility] [address] [place] [address] BUN/Creat Ratio 21 No Units High 10-20 [facility] Comment on above: Performed By: #### 2 [id number] #### [facility] [address] [place] [address] Calcium [Mass/Vol] 8.8 mg/dL Low 8.9-11.1 [facility] Comment on above: Performed By: #### 2 [id number] #### [facility] [address] [place] [address] Chloride [Moles/Vol] 104 mmol/L Normal 101-111 [facility] Comment on above: Performed By: #### 2 [id number] #### [facility] [address] [place] [address] CO2 [Moles/Vol] 26 mmol/L Normal 21-31 [facility] Comment on above: Performed By: #### 2 [id number] #### [facility] [address] [place] [address] Creatinine [Mass/Vol] 1.6 mg/dL High 0.5-1.3 [facility] Comment on above: Performed By: #### 2 [id number] #### [facility] [address] [place] [address] Glucose [Mass/Vol] 222 mg/dL High 55-199 [facility] Comment on above: Performed By: #### 2 [id number] #### [facility] [address] [place] [address] Potassium [Moles/Vol] 4.1 mmol/L Normal 3.5-5.3 [facility] Comment on above: Performed By: #### 2 [id number] #### [facility] [address] [place] [address] Sodium [Moles/Vol] 141 mmol/L Normal 135-145 [facility] Comment on above: Performed By: #### 2 [id number] #### [facility] [address] [place] [address] Urea nitrogen [Mass/Vol] 34 mg/dL High 5-21 [facility] Comment on above: Performed By: #### 2 [id number] #### [facility] [address] [place] [address] CBC w/ Auto Diffon 5 Basophil Absolute 0.1 E9/L Normal 0.0-0.2 [facility] Comment on above: Performed By: #### 2 [id number] #### [facility] [address] [place] [address] Basophils/100 WBC (Bld) 0.6 % Normal 0.0-2.0 [facility] Comment on above: Performed By: #### 2 [id number] #### [facility] [address] [place] [address] Eos Absolute 0.1 E9/L Normal 0.0-0.5 [facility] Comment on above: Performed By: #### 2 [id number] #### [facility] [address] [place] [address] Eosinophils/100 WBC (Bld) 0.6 % Normal 0.0-8.0 [facility] Comment on above: Performed By: #### 2 [id number] #### [facility] [address] [place] [address] Erythrocyte distribution width (RBC) [Ratio] 20.3 % High 10.9-14.2 [facility] Comment on above: Performed By: #### 2 [id number] #### [facility] [address] [place] [address] Hematocrit (Bld) [Volume fraction] 34.9 % Low 37.7-49.0 [facility] Comment on above: Performed By: #### 2 [id number] #### [facility] [address] [place] [address] Hemoglobin (Bld) [Mass/Vol] 11.2 g/dL Low 13.5-17.5 [facility] Comment on above: Performed By: #### 2 [id number] #### [facility] [address] [place] [address] Lymph Absolute 0.7 E9/L Low 1.0-4.0 [facility] Comment on above: Performed By: #### 2 [id number] #### [facility] [address] [place] [address] Lymphocytes/100 WBC (Bld) 7.1 % Low 14.0-50.0 [facility] Comment on above: Performed By: #### 2 [id number] #### [facility] [address] [place] [address] MCH (RBC) [Entitic mass] 27.5 pg Normal 27.0-34.0 [facility] Comment on above: Performed By: #### 2 [id number] #### [facility] [address] [place] [address] MCHC (RBC) [Mass/Vol] 32.2 g/dL Normal 31.4-36.0 [facility] Comment on above: Performed By: #### 2 [id number] #### [facility] [address] [place] [address] MCV (RBC) [Entitic vol] 85.4 fL Normal 80.0-100.0 [facility] Comment on above: Performed By: #### 2 [id number] #### [facility] [address] [place] [address] Hardee Absolute 1.4 E9/L High 0.2-1.0 [facility] Comment on above: Performed By: #### 2 [id number] #### [facility] [address] [place] [address] Monocytes/100 WBC (Bld) 13.7 % Normal 4.0-14.0 [facility] Comment on above: Performed By: #### 2 [id number] #### [facility] [address] [place] [address] Neutro Absolute 7.7 E9/L High 2.0-7.5 [facility] Comment on above: Performed By: #### 2 [id number] #### [facility] [address] [place] [address] Neutro Auto 78.0 % High 36.0-75.0 [facility] Comment on above: Performed By: #### 2 [id number] #### [facility] [address] [place] [address] Platelet 237.0 E9/L Normal 150.0-500.0 [facility] Comment on above: Performed By: #### 2 [id number] #### [facility] [address] [place] [address] Platelet mean volume (Bld) [Entitic vol] 9.1 fL Normal 6.4-10.8 [facility] Comment on above: Performed By: #### 2 [id number] #### [facility] [address] [place] [address] RBC 4.1 E12/L Low 4.3-5.9 [facility] Comment on above: Performed By: #### 2 [id number] #### [facility] [address] [place] [address] WBC 9.9 E9/L Normal 4.0-11.0 [facility] Comment on above: Performed By: #### 2 [id number] #### [facility] [address] [place] [address] CHEMISTRYOrdered By: Lab ROP User on 04-17-2025 Glucose [Mass/Vol] 203 mg/dL High 55 - 99 mg/dL [facility] Subsection Comment on above: Result Comment: Tommie cortes RN/ POC Device SN [id number] 1 Invalid Interpretation Code [facility] Subsection POC Username JIMENA RIBEIRO Invalid Interpretation Code [facility] Subsection Sodium [Moles/Vol] [id number] mmol/L Invalid Interpretation Code [facility] Subsection CHEMISTRYOrdered By: SYSTEM SYSTEM on 04-17-2025 Anion gap [Moles/Vol] 15 mmol/L Normal 6 - 16 mEq/L R emisol Chem Calcium [Mass/Vol] 8.8 mg/dL Low 8.9 - 11. 1 mg/dL Remisol Chem Chloride [Moles/Vol] 104 mmol/L Normal 101 - 1 11 mmol/L Rem[facility] Chem CO2 [Moles/Vol] 26 mmol/L Normal 21 - 31 mmol/L Rem[facility] Chem Creatinine [Mass/Vol] 1.6 mg/dL High 0.5 - 1.3 mg/dL Rem[facility] Chem GFR/1.73 sq M.predicted MDRD (S/P/Bld) [Vol rate/Area] 42 mL/min/1.73 m2 Low >=59mL/min/1 .73 m2 Remisol Chem Glucose [Mass/Vol] 222 mg/dL High 55 - 199 mg/dL [facility] Chem Potassium [Moles/Vol] 4.1 mmol/L Normal 3.5 - 5.3 mmol/L Rem[facility] Chem Sodium [Moles/Vol] 141 mmol/L Normal 135 - 145 mmol/L Rem[facility] Chem Urea nitrogen [Mass/Vol] 34 mg/dL High 5 - 21 mg/dL [facility] Chem Urea nitrogen/Creatinine [Mass ratio] 21 mg/mg High 10 - 20 [facility] Capillary Glucose POCon 060 Glucose [Mass/Vol] 203 mg/dL High 55-99 [facility] Comment on above: Result Comment: Tommie HAGEN Performed By: #### 2 [id number] #### [facility] [address] [place] [address] Glucose [Mass/Vol] 240 mg/dL High 55-99 [facility] Comment on above: Result Comment: Tommie HAGEN Performed By: #### 2 [id number] #### [facility] [address] [place] [address] Glucose [Mass/Vol] 304 mg/dL High 55-99 [facility] Comment on above: Result Comment: Tommie HAGEN Performed By: #### 2 [id number] #### [facility] [address] [place] [address] Glucose [Mass/Vol] 191 mg/dL High 55-99 [facility] Comment on above: Result Comment: Tommie HAGEN Performed By: #### 2 [id number] #### [facility] [address] [place] [address] Coding Queryon 04-17-2025 Coding Query Coding Query From: Tanesha Mcdowell RN To: Anai URIARTE; Sent: 04/17/2025 11:04:22 EDT ! Subject: Coding Query Due Date/Time: 04/18/2025 11:04:00 EDT Caller Name: NADIR BETH; Caller Number: , Documentation in the medical record indicates this patient has been admitted with or diagnosed as having: congestion heart failure unspecified The following is also documented in the medical record: Other: 5. Congestive heart failure (I50.9: Heart failure, unspecified) BNP 512 on admission. Given 40mg IV Lasix in ED. --now compensated. Echo See #2 Oxygen prn., Med nebs. Strict I&O daily weight Outside records pending. Spironolactone, Lasix Chest x-ray showing bilateral pleural effusions-consult pulm if needed. Echocardiogram???showi ng EF 65-70% with moderate LV hypertrophy and right ventricle dilated. Sclerotic aortic valve with moderate to severe TR. Based on your medical judgment, can you please specify a diagnosis? Select all that apply: Heart Failure: [___]Acute on Chronic Diastolic (Preserved EF) Heart Failure [___]Other: In responding to this request, please exercise your independent professional judgement. The fact that a question is asked does not imply that any particular answer is desired or expected. Thank you![email or web address] [id number] From: Anai URIARTE To: Tanesha Mcdowell RN; Sent: 04/17/2025 15:51:38 EDT Subject: RE: Coding Query Caller Name: KIRIT NADIR Hamilton; Caller Number: H , M ]Acute on Chronic Diastolic (Preserved EF) Heart Failure [facility] Coding Query Coding Query From: Tanesha Mcdowell RN To: Anai URIARTE; Sent: 04/16/2025 11:01:11 EDT ! Subject: Coding Query Due Date/Time: 04/17/2025 11:01:00 EDT Caller Name: KIRIT NADIR Hamilton; Caller Number: H , M Documentation in the medical record indicates this patient has been admitted with or diagnosed as having: Hypertensive urgency The following is also documented in the medical record: Serial troponins: 18.30, 62.60 04/15 cardiology-Elevated troponin likely due to mismatch demand supply. Continue current management. Continue to trend. Obtain 2D echo. Treat acute issues. Aggressive risk factor control. Based on your medical judgment, can you please clarify which, if any, of the following conditions are present? [___]Demand Ischemia (without a myocardial infarction) [___]Other: In responding to this request, please exercise your independent professional judgement. The fact that a question is asked does not imply that any particular answer is desired or expected. Thank you!tanesha [phone] From: Anai URIARTE To: Jeremias RN, Tanesha Marroquin; Sent: 04/17/2025 15:42:37 EDT Subject: RE: Coding Query Caller Name: NADIR BETH; Caller Number: , M __]Demand Ischemia (without a myocardial infarction) Normal [facility] HEMATOLOGYOrdered By: SYSTEM SYSTEM on 04-17-2025 Basophils/100 WBC (Bld) 0.6 % Normal 0.0 - 2.0 % Remisol Heme Basophils/Leukocytes Auto (Bld) [Pure # fraction] 0.1 E9/L Normal 0.0 - 0.2 E9/L Remisol Heme Eosinophils (Bld) [#/Vol] 0.1 E9/L Normal 0.0 - 0.5 E9/L Remisol Heme Eosinophils/100 WBC (Bld) 0.6 % Normal 0.0 - 8.0 % Remisol Heme Erythrocyte distribution width (RBC) [Ratio] 20.3 % High 10.9 - 14.2 % Remisol Heme Hematocrit (Bld) [Volume fraction] 34.9 % Low 37.7 - 49.0 % Remisol Heme Hemoglobin (Bld) [Mass/Vol] 11.2 g/dL Low 13.5 - 17.5 gm/dL Remisol Heme Lymphocytes (Bld) [#/Vol] 0.7 E9/L Low 1.0 - 4.0 E9/L Remisol Heme Lymphocytes/100 WBC (Bld) 7.1 % Low 14.0 - 50.0 % Remisol Heme MCH (RBC) [Entitic mass] 27.5 pg Normal 27.0 - 34.0 pg Remisol Heme MCHC (RBC) [Mass/Vol] 32.2 g/dL Normal 31.4 - 36.0 gm/dL Remisol Heme MCV (RBC) [Entitic vol] 85.4 fL Normal 80.0 - 100.0 fL Remisol Heme Monocytes (Bld) [#/Vol] 1.4 E9/L High 0.2 - 1.0 E9/L Remisol Heme Monocytes/100 WBC (Bld) 13.7 % Normal 4.0 - 14.0 % Remisol Heme Neutrophils (Bld) [#/Vol] 7.7 E9/L High 2.0 - 7.5 E9/L Remisol Heme Neutrophils/100 WBC (Bld) 78.0 % High 36.0 - 75.0 % Remisol Heme Platelet mean volume (Bld) [Entitic vol] 9.1 fL Normal 6.4 - 10.8 fL Remisol Heme Platelets (Bld) [#/Vol] 237.0 E9/L Normal 150.0 - 500.0 E9/L Remisol Heme RBC (Bld) [#/Vol] 4.1 E12/L Low 4.3 - 5.9 E12/L Remisol Heme WBC corrected for nucl RBC Auto (Bld) [#/Vol] 9.9 E9/L Normal 4.0 - 11.0 E9/L Remisol Heme Interdisciplinary Note - Zachery e Manageron 04-17-2025 Interdisciplinary Note - [employer] Rep[employer]r Interdisciplinary Note - [employer]r Patient awake and alert eating breakfast in bed. and dtr at bedside. Patient has been accepted to [facility], patient has completed 3MN and can dc when medically clear. and dtr unsure if they will transport patient or if they will need transport set up. Dtr states she would like to see how patient does with PT first. Denies any further concerns. Family will transport patient to [facility]. Normal [facility] Comment on above: Result Comment: Elec tronically Signed By: Jihan De Oliveira\.br\Date and Time Signed: 04/17/25 10:54 EDT Interdisciplinary Note - [employer] Repairer Interdisciplinary Note - [employer] Rep[employer]r Patient awake and alert eating breakfast in bed. and dtr at bedside. Patient has been accepted to [facility], patient has completed 3MN and can dc when medically clear. and dtr unsure if they will transport patient or if they will need transport set up. Dtr states she would like to see how patient does with PT first. Denies any further concerns. Normal [facility] Comment on above: Result Comment: Elec tronically Signed By: Jihan De Oliveira\.br\Date and Time Signed: 04/17/25 08:41 EDT RPR with Conf Rfxon 04-17-20 25 RPR Qual Non-Reactive Invalid Interpretation Code Non Reactive [facility] Comment on above: Result Comment: Perf ormed at: [facility] [address] [id number] PhD Huan Vyas Performed By: #### 1 [id number] #### [facility] [address] [place] [address] eGFRon 04-17-2025 eGFR 42 mL/min/1.73 m2 Low >=59 [facility] Comment on above: Performed By: #### 1 [id number] #### [facility] [address] [place] [address] BMPon 04-16-2025 Anion gap [Moles/Vol] 18 mmol/L High 6-16 [facility] Comment on above: Performed By: #### 2 [id number] #### [facility] [address] [place] [address] BUN/Creat Ratio 19 No Units Normal 10-20 [facility] Comment on above: Performed By: #### 2 [id number] #### [facility] [address] [place] [address] Calcium [Mass/Vol] 9.2 mg/dL Normal 8.9-11.1 [facility] Comment on above: Performed By: #### 2 [id number] #### [facility] [address] [place] [address] Chloride [Moles/Vol] 103 mmol/L Normal 101-111 [facility] Comment on above: Performed By: #### 2 [id number] #### [facility] [address] [place] [address] CO2 [Moles/Vol] 24 mmol/L Normal 21-31 [facility] Comment on above: Performed By: #### 2 [id number] #### [facility] [address] [place] [address] Creatinine [Mass/Vol] 1.7 mg/dL High 0.5-1.3 [facility] Comment on above: Performed By: #### 2 [id number] #### [facility] [address] [place] [address] Glucose [Mass/Vol] 212 mg/dL High 55-199 [facility] Comment on above: Performed By: #### 2 [id number] #### [facility] [address] [place] [address] Potassium [Moles/Vol] 3.9 mmol/L Normal 3.5-5.3 [facility] Comment on above: Performed By: #### 2 [id number] #### [facility] [address] [place] [address] Sodium [Moles/Vol] 141 mmol/L Normal 135-145 [facility] Comment on above: Performed By: #### 2 [id number] #### [facility] [address] [place] [address] Urea nitrogen [Mass/Vol] 33 mg/dL High 5-21 [facility] Comment on above: Performed By: #### 2 [id number] #### [facility] [address] [place] [address] CBC w/ Auto Diffon 5 Basophil Absolute 0.0 E9/L Normal 0.0-0.2 [facility] Comment on above: Performed By: #### 2 [id number] #### [facility] [address] [place] [address] Basophils/100 WBC (Bld) 0.1 % Normal 0.0-2.0 [facility] Comment on above: Performed By: #### 2 [id number] #### [facility] [address] [place] [address] Eos Absolute 0.0 E9/L Normal 0.0-0.5 [facility] Comment on above: Performed By: #### 2 [id number] #### [facility] [address] [place] [address] Eosinophils/100 WBC (Bld) 0.2 % Normal 0.0-8.0 [facility] Comment on above: Performed By: #### 2 [id number] #### [facility] [address] [place] [address] Erythrocyte distribution width (RBC) [Ratio] 20.4 % High 10.9-14.2 [facility] Comment on above: Performed By: #### 2 [id number] #### [facility] [address] [place] [address] Hematocrit (Bld) [Volume fraction] 37.2 % Low 37.7-49.0 [facility] Comment on above: Performed By: #### 2 [id number] #### [facility] [address] [place] [address] Hemoglobin (Bld) [Mass/Vol] 11.9 g/dL Low 13.5-17.5 [facility] Comment on above: Performed By: #### 2 [id number] #### [facility] [address] [place] [address] Lymph Absolute 0.7 E9/L Low 1.0-4.0 [facility] Comment on above: Performed By: #### 2 [id number] #### [facility] [address] [place] [address] Lymphocytes/100 WBC (Bld) 4.6 % Low 14.0-50.0 [facility] Comment on above: Performed By: #### 2 [id number] #### [facility] [address] [place] [address] MCH (RBC) [Entitic mass] 27.2 pg Normal 27.0-34.0 [facility] Comment on above: Performed By: #### 2 [id number] #### [facility] [address] [place] [address] MCHC (RBC) [Mass/Vol] 32.0 g/dL Normal 31.4-36.0 [facility] Comment on above: Performed By: #### 2 [id number] #### [facility] [address] [place] [address] MCV (RBC) [Entitic vol] 84.9 fL Normal 80.0-100.0 [facility] Comment on above: Performed By: #### 2 [id number] #### [facility] [address] [place] [address] Hardee Absolute 1.6 E9/L High 0.2-1.0 [facility] Comment on above: Performed By: #### 2 [id number] #### [facility] [address] [place] [address] Monocytes/100 WBC (Bld) 10.8 % Normal 4.0-14.0 [facility] Comment on above: Performed By: #### 2 [id number] #### [facility] [address] [place] [address] Neutro Absolute 12.3 E9/L High 2.0-7.5 [facility] Comment on above: Performed By: #### 2 [id number] #### [facility] [address] [place] [address] Neutro Auto 84.3 % High 36.0-75.0 [facility] Comment on above: Performed By: #### 2 [id number] #### [facility] [address] [place] [address] Platelet 268.0 E9/L Normal 150.0-500.0 [facility] Comment on above: Performed By: #### 2 [id number] #### [facility] [address] [place] [address] Platelet mean volume (Bld) [Entitic vol] 8.7 fL Normal 6.4-10.8 [facility] Comment on above: Performed By: #### 2 [id number] #### [facility] [address] [place] [address] RBC 4.4 E12/L Normal 4.3-5.9 [facility] Comment on above: Performed By: #### 2 [id number] #### [facility] [address] [place] [address] WBC 14.6 E9/L High 4.0-11.0 [facility] Comment on above: Performed By: #### 2 [id number] #### [facility] [address] [place] [address] CHEMISTRYOrdered By: SYSTEM SYSTEM on 04-16-2025 Anion gap [Moles/Vol] 18 mmol/L High 6 - 16 mEq/L R emisol Chem Calcium [Mass/Vol] 9.2 mg/dL Normal 8.9 - 11. 1 mg/dL Remisol Chem Chloride [Moles/Vol] 103 mmol/L Normal 101 - 1 11 mmol/L Remisol Chem CO2 [Moles/Vol] 24 mmol/L Normal 21 - 31 mmol/L Remisol Chem Creatinine [Mass/Vol] 1.7 mg/dL High 0.5 - 1.3 mg/dL Remisol Chem GFR/1.73 sq M.predicted MDRD (S/P/Bld) [Vol rate/Area] 39 mL/min/1.73 m2 Low >=59mL/min/1 .73 m2 Remisol Chem Glucose [Mass/Vol] 212 mg/dL High 55 - 199 mg/dL Remisol Chem Magnesium [Mass/Vol] 2.4 mg/dL Normal 1.3 - 2 .4 mg/dL Remisol Chem Potassium [Moles/Vol] 3.9 mmol/L Normal 3.5 - 5.3 mmol/L Remisol Chem Sodium [Moles/Vol] 141 mmol/L Normal 135 - 145 mmol/L Remisol Chem Urea nitrogen [Mass/Vol] 33 mg/dL High 5 - 21 mg/dL Remisol Chem Urea nitrogen/Creatinine [Mass ratio] 19 mg/mg Normal 10 - 20 Remisol Chem Capillary Glucose POCon Glucose [Mass/Vol] 265 mg/dL High 55-99 [facility] Comment on above: Result Comment: Tommie cortes RN/ Performed By: #### 2 [id number] #### [facility] [address] [place] [address] Glucose [Mass/Vol] 246 mg/dL High 55-99 [facility] Comment on above: Result Comment: Tommie cortes RN/ Performed By: #### 2 [id number] #### [facility] [address] [place] [address] Glucose [Mass/Vol] 294 mg/dL High 55-99 [facility] Comment on above: Result Comment: Tommie cortes RN/ Performed By: #### 2 [id number] #### [facility] [address] [place] [address] Glucose [Mass/Vol] 195 mg/dL High 55-99 [facility] Comment on above: Result Comment: Tommie HAGEN Performed By: #### 2 [id number] #### [facility] [address] [place] [address] Coding Queryon 04-16-2025 Coding Query Coding Query From: Tanesha Mcdowell RN To: Anai URIARTE; Sent: 04/16/2025 11:01:11 EDT ! Subject: Coding Query Due Date/Time: 04/17/2025 11:01:00 EDT Caller Name: NADIR BETH; Caller Number: Sergio , M Documentation in the medical record indicates this patient has been admitted with or diagnosed as having: Hypertensive urgency The following is also documented in the medical record: Serial troponins: 18.30, 62.60 04/15 cardiology-Elevated troponin likely due to mismatch demand supply. Continue current management. Continue to trend. Obtain 2D echo. Treat acute issues. Aggressive risk factor control. Based on your medical judgment, can you please clarify which, if any, of the following conditions are present? [___]Demand Ischemia (without a myocardial infarction) [___]Other: In responding to this request, please exercise your independent professional judgement. The fact that a question is asked does not imply that any particular answer is desired or expected. Thank you!tanesha [id number] Normal [facility] HEMATOLOGYOrdered By: SYSTEM SYSTEM on 04-16-2025 Basophils/100 WBC (Bld) 0.1 % Normal 0.0 - 2.0 % Remisol Heme Basophils/Leukocytes Auto (Bld) [Pure # fraction] 0.0 E9/L Normal 0.0 - 0.2 E9/L Remisol Heme Eosinophils (Bld) [#/Vol] 0.0 E9/L Normal 0.0 - 0.5 E9/L Remisol Heme Eosinophils/100 WBC (Bld) 0.2 % Normal 0.0 - 8.0 % Remisol Heme Erythrocyte distribution width (RBC) [Ratio] 20.4 % High 10.9 - 14.2 % Remisol Heme Hematocrit (Bld) [Volume fraction] 37.2 % Low 37.7 - 49.0 % Remisol Heme Hemoglobin (Bld) [Mass/Vol] 11.9 g/dL Low 13.5 - 17.5 gm/dL Remisol Heme Lymphocytes (Bld) [#/Vol] 0.7 E9/L Low 1.0 - 4.0 E9/L Remisol Heme Lymphocytes/100 WBC (Bld) 4.6 % Low 14.0 - 50.0 % Remisol Heme MCH (RBC) [Entitic mass] 27.2 pg Normal 27.0 - 34.0 pg Remisol Heme MCHC (RBC) [Mass/Vol] 32.0 g/dL Normal 31.4 - 36.0 gm/dL Remisol Heme MCV (RBC) [Entitic vol] 84.9 fL Normal 80.0 - 100.0 fL Remisol Heme Monocytes (Bld) [#/Vol] 1.6 E9/L High 0.2 - 1.0 E9/L Remisol Heme Monocytes/100 WBC (Bld) 10.8 % Normal 4.0 - 14.0 % Remisol Heme Neutrophils (Bld) [#/Vol] 12.3 E9/L High 2.0 - 7.5 E9/L Remisol Heme Neutrophils/100 WBC (Bld) 84.3 % High 36.0 - 75.0 % Remisol Heme Platelet mean volume (Bld) [Entitic vol] 8.7 fL Normal 6.4 - 10.8 fL Remisol Heme Platelets (Bld) [#/Vol] 268.0 E9/L Normal 150.0 - 500.0 E9/L Remisol Heme RBC (Bld) [#/Vol] 4.4 E12/L Normal 4.3 - 5.9 E12/L Remisol Heme WBC corrected for nucl RBC Auto (Bld) [#/Vol] 14.6 E9/L High 4.0 - 11.0 E9/L Remisol Heme [id number] 04-16-2025 HbA1c (Bld) [Mass fraction] 9.9 % High <=5.9 [facility] Comment on above: Performed By: #### 7 [id number] #### [facility] [address] [place] [address] Inpatient Clinical Summaryon 04-16-2025 Inpatient Clinical Summary Inpatient Clinical Summary [address] [address] Clinical Summary Person Information: Name: NADIR BETH Age: 85 Years : 1940 Sex: Male PCP: Van Youssef MD Marital Status: Race: White Ethnicity: Non- or Language: Jamaican Visit Id: Visit Reason: Altered mental status; Headache; Potential stroke; stroke Speciality: Acuity: Enc Type: Inpatient Med Service: Medical Arrival: 04/14/2025 16:53:36 Discharge: Dispo Type: Admitted as IP to this Hosp Address: [address] [place] [id number] Provider Notes: Diagnosis: 1:CVA (cerebrovascular accident); 2:Atrial fibrillation; 3:Hypertensive urgency; 4:Pericardial effusion; 5:Congestive heart failure; 6:Chronic kidney disease; 7:Essential tremor; 8:DM2 (diabetes mellitus, type 2); 9:BPH with urinary obstruction; 10:On deep vein thrombosis (DVT) prophylaxis; 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; Chronic constipation with overflow Problems Active Post-void dribbling Gross hematuria BPH with urinary obstruction OAB (overactive bladder) Acquired buried penis Incomplete bladder emptying Anticoagulated Balanitis Nausea Abdominal cramping Constipation Gas pain Fecal urgency Hemorrhoids Diverticulosis Colon polyps Family history of colon cancer History of colon polyps Chronic constipation with overflow Asthma Diabetes Smoking Status: Never Smoker Functional Status: Sensory Deficits: History of Falls: Mobility Assistance Prior to Admission: ADLs: Complete assist Current Level of Assistance for Self-Care/Mobility: Cognitive Status: Disoriented x 3 Allergies Contrast Dye (Unknown) Nitroglycerin Patch (Unknown) statins (Unknown) Nitro TD Patch-A (Unknown) aminolevulinic acid (Unknown) simvastatin (elevated liver enzymes) Measurements: Height: 182.88 cm Weight: 76.3 kg Blood Pressure: 181 mmHg / 83 mmHg BMI: 24.31 kg/m2 Procedures No Procedures Documented Immunizations No Immunizations Documented This Visit Final Med List: acyclovir 400 Milligram By Mouth 3 times a day. alprazolam (Xanax 0.25 mg Tab) 1 Tablets By Mouth every 8 hours as needed as needed for anxiety. apixaban (Eliquis) 2.5 Milligram By Mouth 2 times a day. aspirin 81 Milligram By Mouth every day. betamethasone-clotrima zole topical (betamethasone-clotrim azole Top 0.05%-1% Crm 15 gram) budesonide-formoterol (Symbicort) 80-4.5 mcg/actuation Inhalation 2 times a day. cetirizine (cetirizine 10 mg Tab) 1 Tablets By Mouth every day. cholecalciferol (Vitamin D3 2000 intl units) 2,000 Units By Mouth every day. clonidine 0.2 Milligram By Mouth 2 times a day. dicyclomine 10 Milligram By Mouth 2 times a day. empagliflozin (Jardiance 10 mg oral tablet) 25 Milligram By Mouth once a day (in the morning). ezetimibe (Zetia) 10 Milligram By Mouth every day. ferrous sulfate 325 Milligram 2 times a day. furosemide (Lasix 80 mg Tab) By Mouth every day. furosemide (Lasix) 40 Milligram. gabapentin 600 Milligram By Mouth every day at 12:00 noon. glimepiride 8 Milligram By Mouth every day. hydrALAZINE 100 Milligram By Mouth 2 times a day. labetalol 300 Milligram By Mouth 3 times a day. magnesium oxide 500 Milligram By Mouth 3 times a day. metformin (metformin 500 mg Tab) 1 Tablets By Mouth 3 times a day. metoclopramide 5 Milligram By Mouth 2 times a day. multivitamin (B Complex with Vitamin C Gummy oral tablet, chewable) 1 Tablets Chewed every day. mupirocin topical (mupirocin Top 2% Crm) NIFEdipine 90 Milligram By Mouth 2 times a day. omeprazole 20 Milligram By Mouth every day. pioglitazone (pioglitazone 30 mg Tab) 45 Milligram By Mouth every day. potassium chloride (Klor-Con) 20 Milliequivalent By Mouth every day. prednisoLONE ophthalmic (Pred Mild) 1 Drops Both eyes 2 times a day. primidone (primidone 50 mg Tab) 2 Tablets By Mouth 2 times a day. psyllium (Daily Fiber Sugar-Free) 3 capsules By Mouth every day. psyllium (Metamucil 525 mg oral capsule) 2 Capsules By Mouth every day. Take 2 hour apart from the other medications with at least 8 ounces of water. Refills: 1. rivaroxaban (Xarelto 15 mg oral tablet) 1 Tablets By Mouth once a day (in the evening). sitagliptin (Januvia) 100 Milligram By Mouth every day. spironolactone (spironolactone 25 mg Tab) 1 Tablets By Mouth every day. tamsulosin (Flomax) 0.4 Milligram By Mouth every day. tiotropium (Spiriva Respimat 1.25 mcg/inh inhalation aerosol) 2 Puffs Inhalation every day. Care Team Members: Attending Physician: Layne VERDUGO DO Consulting Physician: Clover Walker MD; [facility] [facility] Referring Physician: Follow up: With: Address: When: Neurology [phone] Within 2 to 4 weeks Comments: Call for followup a (more content not included)... Normal [facility] Inpatient Patient Summaryon 04-16-2025 Inpatient Patient Summary Inpatient Patient Summary [address] [address] Patient Discharge Instructions PERSON INFORMATION Name: NADIR BETH Date of : 1940 Current Date: 04/16/2025 09:29:45 PHYSICIANS Admitting Physician: Layne VERDUGO DO Primary Care Physician: Van Youssef MD PCP Comment: Discharge Diagnosis: 1:CVA (cerebrovascular accident); 2:Atrial fibrillation; 3:Hypertensive urgency; 4:Pericardial effusion; 5:Congestive heart failure; 6:Chronic kidney disease; 7:Essential tremor; 8:DM2 (diabetes mellitus, type 2); 9:BPH with urinary obstruction; 10:On deep vein thrombosis (DVT) prophylaxis; 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; Chronic constipation with overflow Condition at Discharge: KIRIT NADIR Hamilton has been given the following list of follow-up instructions, prescriptions, and patient education materials: PATIENT FOLLOW-UP INFORMATION Diet: Discharge Activity: Discharge Restrictions: Wound Care Instructions: Remove Your Dressing In Days Call Your Doctor For: IF UNABLE TO CONTACT YOUR PHYSICIAN AND YOU FEEL IT IS AN EMERGENCY, GO TO THE NEAREST EMERGENCY ROOM OR CALL 911 Home Treatment: Devices/Equipment: Blood glucose monitor Special Services: Additional Instructions: Primary Care Physician to provide the following pending test results: Follow up: With: Address: When: [facility] [phone] Within 2 to 4 weeks Comments: Call for followup appointment In the event that this physician does not participate in your insurance network, please consult with your insurance company to find a nearby participating provider. Type Location Start [facility] Office Visit [facility] 06/11/2025 11:40 AM 06/11/2025 12:00 PM Confirmed Comment: IKIRIT RONALD L, have received the attached patient education materials/instructions and have verbalized understanding: Patient Signature Date Clinican/Nurse Signature ___ Date HERE ARE THE MEDICATION CHANGES THAT OCCURRED DURING YOUR HOSPITAL STAY Medications to Continue with No Changes Other Medications acyclovir 400 Milligram By Mouth 3 times a day. Last Dose: ___Next Dose: ___ alprazolam (Xanax 0.25 mg Tab) 1 Tablets By Mouth every 8 hours as needed as needed for anxiety. Last Dose: ___Next Dose: ___ apixaban (Eliquis) 2.5 Milligram By Mouth 2 times a day. Last Dose: ___Next Dose: ___ aspirin 81 Milligram By Mouth every day. Last Dose: ___Next Dose: ___ betamethasone-clotrima zole topical (betamethasone-clotrim azole Top 0.05%-1% Crm 15 gram) Last Dose: ___Next Dose: ___ budesonide-formoterol (Symbicort) 80-4.5 mcg/actuation Inhalation 2 times a day. Last Dose: ___Next Dose: ___ cetirizine (cetirizine 10 mg Tab) 1 Tablets By Mouth every day. Last Dose: ___Next Dose: ___ cholecalciferol (Vitamin D3 2000 intl units) 2,000 Units By Mouth every day. Last Dose: ___Next Dose: ___ clonidine 0.2 Milligram By Mouth 2 times a day. Last Dose: ___Next Dose: ___ dicyclomine 10 Milligram By Mouth 2 times a day. Last Dose: ___Next Dose: ___ empagliflozin (Jardiance 10 mg oral tablet) 25 Milligram By Mouth once a day (in the morning). Last Dose: ___Next Dose: ___ ezetimibe (Zetia) 10 Milligram By Mouth every day. Last Dose: ___Next Dose: ___ ferrous sulfate 325 Milligram 2 times a day. Last Dose: ___Next Dose: ___ furosemide (Lasix 80 mg Tab) By Mouth every day. Last Dose: ___Next Dose: ___ furosemide (Lasix) 40 Milligram. Last Dose: ___Next Dose: ___ gabapentin 600 Milligram By Mouth every day at 12:00 noon. Last Dose: ___Next Dose: ___ glimepiride 8 Milligram By Mouth every day. Last Dose: ___Next Dose: ___ hydrALAZINE 100 Milligram By Mouth 2 times a day. Last Dose: ___Next Dose: ___ labetalol 300 Milligram By Mouth 3 times a day., 150mg BID Last Dose: ___Next Dose: ___ magnesium oxide 500 Milligram By Mouth 3 times a day. Last Dose: ___Next Dose: ___ metformin (metformin 500 mg Tab) 1 Tablets By Mouth 3 times a day. Last Dose: ___Next Dose: ___ metoclopramide 5 Milligram By Mouth 2 times a day. La (more content not included)... Normal [facility] Interdisciplinary Note - Zachery e Manageron 04-16-2025 Interdisciplinary Note - [employer]r Interdisciplinary Note - [employer]r CRM to room 202 Patient is awake, alert but getting ECHO. Patient spouse and family is present in room. Patient is from home with his spouse. She drives. Patient spouse verified his PCP and insurance. They do have walker, cane and RT that can be used as needed. Per Spouse PLOF was independent in self care with her assistance as needed. Patient is an inpatient. IMM completed on 04/14 and this gets reviewed. Patient came in with stroke symptoms. He has A Fib and pericardial effusion. Patient is assigned to [facility], see notes. Patient has wound, cardiology and neurology on case. Patient is pending MRI. He is getting an ECHO now. Patient has recs from therapy for SNF. Patient spouse would like him referred to [facility]. Patient can DC there if accepted on 6/3 per 3 M needed. Patient white board updated. CRM following, contact info provided. DC plan SNF, pending [facility] accepts for SNF stay Normal [facility] Comment on above: Result Comment: Elec tronically Signed By: Cierra Rouse\.br\Date and Time Signed: 04/16/25 11:58 EDT Interdisciplinary Note - [employer]r Interdisciplinary Note - [employer]r CRM to room 202 Patient is awake, alert but getting ECHO. Patient spouse and family is present in room. Patient is from home with his spouse. She drives. Patient spouse verified his PCP and insurance. They do have walker, cane and RT that can be used as needed. Per Spouse PLOF was independent in self care with her assistance as needed. Patient is an inpatient. IMM completed on 04/14 and this gets reviewed. Patient came in with stroke symptoms. He has A Fib and pericardial effusion. Patient is assigned to [facility] [employer], see notes. Patient has wound, cardiology and neurology on case. Patient is pending MRI. He is getting an ECHO now. Patient has recs from therapy for SNF. Patient spouse would like him referred to [facility]. Patient can DC there if accepted on 6/3 per 3 M needed. Patient white board updated. CRM following, contact info provided. DC plan SNF, pending [facility] Normal [facility] Comment on above: Result Comment: Elec tronically Signed By: Cierra Rouse\.br\Date and Time Signed: 04/16/25 09:48 EDT Interdisciplinary Note - Isaías damian 04-16-2025 Interdisciplinary Note - Nursing Interdisciplinary Note - Nursing pt has a stasis ulcer on left lower leg. 1.2cm long by 1.2cm wide by 0.1 depth. staff can continue with antibiotic ointment, or may use maya and dry dressing change every other day. follow up out patient wound clinic Normal [facility] Interdisciplinary Note - Denise n 06-02-2025 Interdisciplinary Note - OT Interdisciplinary Note - OT OT [facility] six clicks score 16/24 = SNF. Patient requires MIN A w/ sit to stand transfers at eob, Min- mod A w dynamic standing adls. Pt requires mod vc for walker safety and sequencing w/ all functional tasks. Inpatient OT services to follow daily to progress as tolerates w/ self help skills. Normal [facility] MRI Brain w/o Contraston MRI Brain w/o Contrast Exam Date/Time: 04/16/2025 11:05 EDT Reason for Exam: Stroke Report IMPRESSION: PROBABLE T2 SHINE THROUGH AND/OR MINIMAL ACUTE/SUBACUTE ISCHEMIC LACUNAR INFARCTS, NOTED. CHRONIC, ATROPHIC, AND INVOLUTIONAL CHANGES, NOTED. EXAM: MRI Brain w/o Contrast DATE: 04/16/2025 10:21 AM CLINICAL HISTORY: Stroke. Technologist Comments: RRS; altered mental status; high blood pressure; pt takes Xarelto *fast brain protocol used due to pt movement during exam* COMPARISON: Head CT and head and neck CTAs 04/14/2025. TECHNIQUE: Multiplanar MR imaging of the head was performed without contrast. FINDINGS: Motion artifact limits some sequences, which were shortened. Acute Change: A few small vaguely hyperintense DWI left basal ganglia, periventricular and subcortical supratentorial changes, most likely T2 shine through and/or minimal acute/subacute ischemic lacunar infarcts. Hemorrhage: No evidence of intracranial hemorrhage. Mass Lesion/ Mass Effect: No evidence of an intracranial mass or extra-axial fluid collection. No significant mass effect. Chronic Change: Mild predominantly supratentorial white matter changes most consistent with chronic small vessel ischemic disease. Parenchyma: Moderate generalized cerebral volume loss for age Ventricles: Expected ex vacuo ventricular dilatation. Skull Base: Hypothalamic and pituitary region are grossly normal. Craniocervical junction is normal. No significant marrow replacement process. Vasculature: Major intracranial arterial structures, and dural venous sinuses show typical flow void, suggesting patency. Other: Paranasal sinuses and mastoid air cells are essentially clear. Bilateral optic globe lens implants. The orbits are otherwise unremarkable. The extracranial soft tissues are unremarkable. Report Ordering Provider: Layne VERDUGO FINAL REPORT Dictated: 04/16/2025 12:11 pm Thom Rashid MD Signed (Electronic Signature): 04/16/2025 12:11 pm Signed by: Rachid GUSTAFSON, Thom Mac Transcribed by: MARII Technologist: JOSE Tovar [facility] Magnesiumon 04-16-2025 Magnesium [Mass/Vol] 2.4 mg/dL Normal 1.3-2.4 [facility] Comment on above: Performed By: #### 2 [id number] #### [facility] [address] [place] [address] eGFRon 04-16-2025 eGFR 39 mL/min/1.73 m2 Low >=59 [facility] Comment on above: Performed By: #### 1 [id number] #### [facility] [address] [place] [address] BMPon 04-15-2025 Anion gap [Moles/Vol] 20 mmol/L High 6-16 [facility] Comment on above: Performed By: #### 2 [id number] #### [facility] [address] [place] [address] BUN/Creat Ratio 18 No Units Normal 10-20 [facility] Comment on above: Performed By: #### 2 [id number] #### [facility] [address] [place] [address] Calcium [Mass/Vol] 9.4 mg/dL Normal 8.9-11.1 [facility] Comment on above: Performed By: #### 2 [id number] #### [facility] [address] [place] [address] Chloride [Moles/Vol] 102 mmol/L Normal 101-111 [facility] Comment on above: Performed By: #### 2 [id number] #### [facility] [address] [place] [address] CO2 [Moles/Vol] 24 mmol/L Normal 21-31 [facility] Comment on above: Performed By: #### 2 [id number] #### [facility] [address] [place] [address] Creatinine [Mass/Vol] 1.7 mg/dL High 0.5-1.3 [facility] Comment on above: Performed By: #### 2 [id number] #### [facility] [address] [place] [address] Glucose [Mass/Vol] 208 mg/dL High 55-199 [facility] Comment on above: Performed By: #### 2 [id number] #### [facility] [address] [place] [address] Potassium [Moles/Vol] 4.0 mmol/L Normal 3.5-5.3 [facility] Comment on above: Performed By: #### 2 [id number] #### [facility] [address] [place] [address] Sodium [Moles/Vol] 142 mmol/L Normal 135-145 [facility] Comment on above: Performed By: #### 2 [id number] #### [facility] [address] [place] [address] Urea nitrogen [Mass/Vol] 30 mg/dL High 5-21 [facility] Comment on above: Performed By: #### 2 [id number] #### [facility] [address] [place] [address] CHEMISTRYOrdered By: SYSTEM SYSTEM on 04-15-2025 Cholesterol [Mass/Vol] 210 mg/dL High 120 - 200 mg/dL [facility] Cholesterol in HDL [Mass/Vol] 88 mg/dL Invalid Interpretation Code [facility] Comment on above: Result Comment: '>= 60 LOW RISK' '<= 40 HIGH RISK' Cholesterol in LDL [Mass/Vol] 107 mg/dL Normal <=129mg/dL [facility] Cholesterol in VLDL [Mass/Vol] 9 mg/dL Normal 7 - 40 mg/dL [facility] Cobalamin (Vitamin B12) [Mass/Vol] 573 pg/mL Normal 50 - 1500 pg/mL [facility] Folate [Mass/Vol] ng/mL Normal >=6.7ng/mL [facility] Magnesium [Mass/Vol] 2.6 mg/dL High 1.3 - 2 .4 mg/dL [facility] Triglyceride [Mass/Vol] 44 mg/dL Normal <=149mg/dL [facility] Troponin HS 62.60 pg/mL Invalid Interpretation Code 15.90 - 38.40 pg/mL [facility] Comment on above: Result Comment: Crit ical Result Verified by Repeat Analysis Critical Result I_TnIHS:62.6 Called to and read back by: NAKIA DE LA TORRE at: 04/15/2025 08:13:02 by:MARIANO Interpretive Data: T he 95% CI (Confidence Interval) PPV (Positive Predictive Value) for myocardial infarction in females is 38 pg/mL, in males 51 pg/mL. The results should be used in conjunction with clinical conditions of myocardial infarction. (Access High Sensitivity Troponin I Instructions For Use, Roxane Blanca, June 2018) TSH Qn 0.50 m[IU]/L Normal 0.34 - 5.60 mcIU/mL [facility] CHEMISTRYOrdered By: Kaiser Daly on 04-15-2025 HbA1c (Bld) [Mass fraction] 9.9 % High <=5.9% [facility] COAGULATIONOrdered By: Deb Maza on 04-15-2025 aPTT Coag (PPP) [Time] 45.1 s High 25.1 - 36.5 second(s) [facility] Comment on above: Interpretive Data: P arameter 15 days - 4 weeks 1 - 5 months 6 - 11 months 1 - 5 years 6 - 10 years 11 - 17 years PTT Mean: 35.4 (27.6-45.6) Mean: 33.5 (24.8-40.7) Mean: 32.4 (25.1-40.7) Mean: 31.6 (24.0-39.2) Mean: 31.6 (26.9-38.7) Mean: 31.0 (24.6-38.4) Pediatric Reference ranges were obtained from a study by Hood Sun et al. prepared from 1437 samples obtained at 7 different centers using the same coagulation reagent and instrumentation as [facility]. Currently there are no coagulation studies available worldwide for children to 14 days, and no normal ranges. Heparin therapeutic range (represented by Anti-Factor Xa activity of 0.2 - 0.4 U/mL) corresponds to PTT of 56.6 - 109.0 sec. INR Coag (PPP) [Relative time] 0.95 {INR} Invalid Interpretation Code [facility] Comment on above: Interpretive Data: I NR results are specifically intended to assess patients stabilized on long-term Anticoagulation therapy suggested INR s Less Intensive Anticoagulation 2.0 3.0 Conventional Range 3.0 4.5 PT Coag (PPP) [Time] 10.6 s Normal 9.4 - 1 2.5 second(s) [facility] Comment on above: Interpretive Data: 1 5 days - 4 weeks 1 - 5 months 6 -11 months 1 5 years 6 10 years 11 -17 years Mean: 11.2 (9.5 12.6) Mean: 11.0 (9.7 12.8) Mean: 11.0 (9.8 13.0) Mean: 11.3 (9.9 13.4) Mean: 11.7 (10.0 14.6) Mean: 11.8 (10.0 - 14.1) Pediatric Reference ranges were obtained from a study by paul Phan prepared from 1437 samples obtained at 7 different centers using the same coagulation reagent and instrumentation as [facility]. Currently there are no coagulation studies available worldwide for children to 14 days, and no normal ranges. COAGULATIONOrdered By: Marty Naidu on 04-15-2025 aPTT Coag (PPP) [Time] 53.2 s High 25.1 - 36.5 second(s) [facility] Comment on above: Interpretive Data: P liliametantoinette 15 days - 4 weeks 1 - 5 months 6 - 11 months 1 - 5 years 6 - 10 years 11 - 17 years PTT Mean: 35.4 (27.6-45.6) Mean: 33.5 (24.8-40.7) Mean: 32.4 (25.1-40.7) Mean: 31.6 (24.0-39.2) Mean: 31.6 (26.9-38.7) Mean: 31.0 (24.6-38.4) Pediatric Reference ranges were obtained from a study by paul Phan prepared from 1437 samples obtained at 7 different centers using the same coagulation reagent and instrumentation as [facility]. Currently there are no coagulation studies available worldwide for children to 14 days, and no normal ranges. Heparin therapeutic range (represented by Anti-Factor Xa activity of 0.2 - 0.4 U/mL) corresponds to PTT of 56.6 - 109.0 sec. INR Coag (PPP) [Relative time] 0.96 {INR} Invalid Interpretation Code [facility] Comment on above: Interpretive Data: I NR results are specifically intended to assess patients stabilized on long-term Anticoagulation therapy suggested INR s Less Intensive Anticoagulation 2.0 3.0 Conventional Range 3.0 4.5 PT Coag (PPP) [Time] 10.8 s Normal 9.4 - 1 2.5 second(s) [facility] Comment on above: Interpretive Data: 1 5 days - 4 weeks 1 - 5 months 6 -11 months 1-5 years 6-10 years 11 -17 years Mean: 11.2 (9.5-12.6) Mean: 11.0 (9.7-12.8) Mean: 11.0 (9.8-13.0) Mean: 11.3 (9.9-13.4) Mean: 11.7 (10.0-14.6) Mean: 11.8 (10.0 - 14.1) Pediatric Reference ranges were obtained from a study by mayra Phan al. prepared from 1437 samples obtained at 7 different centers using the same coagulation reagent and instrumentation as [facility]. Currently there are no coagulation studies available worldwide for children to 14 days, and no normal ranges. Capillary Glucose POCon 06-0 Glucose [Mass/Vol] 177 mg/dL High 55-99 [facility] Comment on above: Result Comment: Tommie HAGEN Performed By: #### 2 [id number] #### [facility] [address] [place] [address] Glucose [Mass/Vol] 202 mg/dL High 55-99 [facility] Comment on above: Result Comment: Tommie HAGEN Performed By: #### 2 [id number] #### [facility] [address] [place] [address] Glucose [Mass/Vol] 216 mg/dL High 55-99 [facility] Comment on above: Result Comment: Tommie HAGEN Performed By: #### 2 [id number] #### [facility] [address] [place] [address] Glucose [Mass/Vol] 242 mg/dL High 55-99 [facility] Comment on above: Result Comment: Tommie cortes RN/ Performed By: #### 2 [id number] #### [facility] [address] [place] [address] Extra [place] 04-15-2025 WB Tube Collected Yes Invalid Interpretation Code [facility] Comment on above: Performed By: #### 1 [id number] #### [facility] [address] [place] [address] Folateon 04-15-2025 Folate Lvl >22.3 Normal >=6.7 [facility] Comment on above: Performed By: #### 2 [id number] #### [facility] [address] [place] [address] Hemoglobinon 04-15-2025 Hemoglobin (Bld) [Mass/Vol] 12.2 g/dL Low 13.5-17.5 [facility] Comment on above: Performed By: #### 2 [id number] #### [facility] [address] [place] [address] Interdisciplinary Note - Denise n 04-15-2025 Interdisciplinary Note - OT Interdisciplinary Note - OT OT chart reviewed and spoke to nursing with request to hold today until pt. is more medically stable. Will recheck tomorrow. Normal [facility] Interdisciplinary Note - Spe ech Languageon 04-15-2025 Interdisciplinary Note - Speech Language Interdisciplinary Note - Speech Language Pt seen for BSE this am. Pt consuming thin liquids via straw and all textures of solids with no s/s of suspected penetration or aspiration. Recommend IDDSI level 7 (regular) and thin liquids. Pt also seen for SLE. Pt with noted difficulty in following directions, confrontation naming and orientation. Pt also noted to have a weak vocal quality with slurred speech. ST to follow for speech/language/cog up to 5x/week to address these deficits. Normal [facility] Lipid Panelon 04-15-2025 Cholesterol [Mass/Vol] 210 mg/dL High 120-200 [facility] Comment on above: Performed By: #### 2 [id number] #### [facility] [address] [place] [address] Cholesterol in HDL [Mass/Vol] 88 mg/dL Invalid Interpretation Code [facility] Comment on above: Result Comment: '>= 60 LOW RISK' '<= 40 HIGH RISK' Performed By: #### 2 [id number] #### [facility] [address] [place] [address] Cholesterol in LDL [Mass/Vol] 107 mg/dL Normal <=129 [facility] Comment on above: Performed By: #### 2 [id number] #### [facility] [address] [place] [address] Cholesterol in VLDL [Mass/Vol] 9 mg/dL Normal 7-40 [facility] Comment on above: Performed By: #### 2 [id number] #### [facility] [address] [place] [address] Triglyceride [Mass/Vol] 44 mg/dL Normal <=149 [facility] Comment on above: Performed By: #### 2 [id number] #### [facility] [address] [place] [address] Magnesiumon 04-15-2025 Magnesium [Mass/Vol] 2.6 mg/dL High 1.3-2.4 [facility] Comment on above: Performed By: #### 2 [id number] #### [facility] [address] [place] [address] PT & PTTon 04-15-2025 INR Coag (PPP) [Relative time] 0.95 {INR} Invalid Interpretation Code [facility] Comment on above: Result Comment: INR results are specifically intended to assess patients stabilized on long-term Anticoagulation therapy suggested INR???s ???Less Intensive Anticoagulation??? 2.0 ??? 3.0 Conventional Range 3.0 ??? 4.5 Performed By: #### 1 [id number] #### [facility] [address] [place] [address] PT 10.6 second(s) Normal 9.4-12.5 [facility] Comment on above: Result Comment: 15 d ays - 4 weeks 1 - 5 months 6 -11 months 1 ??? 5 years 6 ??? 10 years 11 -17 years Mean: 11.2 (9.5 ??? 12.6) Mean: 11.0 (9.7 ??? 12.8) Mean: 11.0 (9.8 ??? 13.0) Mean: 11.3 (9.9 ??? 13.4) Mean: 11.7 (10.0 ??? 14.6) Mean: 11.8 (10.0 - 14.1) Pediatric Reference ranges were obtained from a study by paul Phan prepared from 1437 samples obtained at 7 different centers using the same coagulation reagent and instrumentation as [facility]. Currently there are no coagulation studies available worldwide for children to 14 days, and no normal ranges. Performed By: #### 1 [id number] #### [facility] [address] [place] [address] PTT 45.1 second(s) High 25.1-36.5 [facility] Comment on above: Result Comment: Para meter 15 days - 4 weeks 1 - 5 months 6 - 11 months 1 - 5 years 6 - 10 years 11 - 17 years PTT Mean: 35.4 (27.6-45.6) Mean: 33.5 (24.8-40.7) Mean: 32.4 (25.1-40.7) Mean: 31.6 (24.0-39.2) Mean: 31.6 (26.9-38.7) Mean: 31.0 (24.6-38.4) Pediatric Reference ranges were obtained from a study by paul Phan prepared from 1437 samples obtained at 7 different centers using the same coagulation reagent and instrumentation as [facility]. Currently there are no coagulation studies available worldwide for children to 14 days, and no normal ranges. Heparin therapeutic range (represented by Anti-Factor Xa activity of 0.2 - 0.4 U/mL) corresponds to PTT of 56.6 - 109.0 sec. Performed By: #### 1 [id number] #### [facility] [address] [place] [address] INR Coag (PPP) [Relative time] 0.96 {INR} Invalid Interpretation Code [facility] Comment on above: Result Comment: INR results are specifically intended to assess patients stabilized on long-term Anticoagulation therapy suggested INR???s ???Less Intensive Anticoagulation??? 2.0 ??? 3.0 Conventional Range 3.0 ??? 4.5 Performed By: #### 1 [id number] #### [facility] [address] [place] [address] PT 10.8 second(s) Normal 9.4-12.5 [facility] Comment on above: Result Comment: 15 d ays - 4 weeks 1 - 5 months 6 -11 months 1- 5 years 6-10 years 11 -17 years Mean: 11.2 (9.5-12.6) Mean: 11.0 (9.7-12.8) Mean: 11.0 (9.8-13.0) Mean: 11.3 (9.9-13.4) Mean: 11.7 (10.0-14.6) Mean: 11.8 (10.0 - 14.1) Pediatric Reference ranges were obtained from a study by paul Phan prepared from 1437 samples obtained at 7 different centers using the same coagulation reagent and instrumentation as [facility]. Currently there are no coagulation studies available worldwide for children to 14 days, and no normal ranges. Performed By: #### 1 [id number] #### [facility] [address] [place] [address] PTT 53.2 second(s) High 25.1-36.5 [facility] Comment on above: Result Comment: Para meter 15 days - 4 weeks 1 - 5 months 6 - 11 months 1 - 5 years 6 - 10 years 11 - 17 years PTT Mean: 35.4 (27.6-45.6) Mean: 33.5 (24.8-40.7) Mean: 32.4 (25.1-40.7) Mean: 31.6 (24.0-39.2) Mean: 31.6 (26.9-38.7) Mean: 31.0 (24.6-38.4) Pediatric Reference ranges were obtained from a study by paul Phan prepared from 1437 samples obtained at 7 different centers using the same coagulation reagent and instrumentation as [facility]. Currently there are no coagulation studies available worldwide for children to 14 days, and no normal ranges. Heparin therapeutic range (represented by Anti-Factor Xa activity of 0.2 - 0.4 U/mL) corresponds to PTT of 56.6 - 109.0 sec. Performed By: #### 1 [id number] #### [facility] [address] [place] [address] Platelet Counton 04-15-2025 Platelet 299.0 E9/L Normal 150.0-500.0 [facility] Comment on above: Performed By: #### 2 [id number] #### [facility] [address] [place] [address] Reference Laboratory Testing Ordered By: Generated DomainUser on 04-15-2025 Reagin Ab RPR Ql (S) Non-Reactive Invalid Interpretation Code Non Reactive [facility] [employer] Comment on above: Result Comment: Perf ormed at: [facility] [address] [id number] PhD Huan Vyas TSH With T4fr Reflexon 04-15 TSH Qn 0.50 m[IU]/L Normal 0.34-5.60 [facility] Comment on above: Performed By: #### 1 [id number] #### [facility] [address] [place] [id number] Troponinon 04-15-2025 Troponin HS 62.60 pg/mL Abnormal 15.90-38.40 [facility] Comment on above: Result Comment: Crit ical Result Verified by Repeat Analysis Critical Result I_TnIHS:62.6 Called to and read back by: NAKIA DE LA TORRE at: 04/15/2025 08:13:02 by:MARIANO The 95% CI (Confidence Interval) PPV (Positive Predictive Value) for myocardial infarction in females is 38 pg/mL, in males 51 pg/mL. The results should be used in conjunction with clinical conditions of myocardial infarction. (Access High Sensitivity Troponin I Instructions For Use, Roxane Blanca, June 2018) Performed By: #### 2 [id number] #### [facility] [address] [place] [address] UA with Cult Rflxon 04-15-20 25 Color (U) Light-Yellow Normal Yellow [facility] Comment on above: Result Comment: Micr oscopic readings are only performed on those samples that meet specific criteria set forth by [facility]. Performed By: #### 4 [id number] #### [facility] [address] [place] [address] Ketones Ql (U) 1+ mg/dL Abnormal Negative [facility] Comment on above: Performed By: #### 4 [id number] #### [facility] [address] [place] [address] UA Blood Trace Abnormal Negative [facility] Comment on above: Performed By: #### 4 [id number] #### [facility] [address] [place] [address] UA Clarity Clear Normal Clear [facility] Comment on above: Performed By: #### 4 [id number] #### [facility] [address] [place] [address] UA Glucose 4+ mg/dL Abnormal Negative [facility] Comment on above: Performed By: #### 4 [id number] #### [facility] [address] [place] [address] UA Leuk Est Negative Normal Negative [facility] Comment on above: Performed By: #### 4 [id number] #### [facility] [address] [place] [address] UA Nitrite Negative Normal Negative [facility] Comment on above: Performed By: #### 4 [id number] #### [facility] [address] [place] [address] UA pH 6.0 Invalid Interpretation Code 5.0-9.0 [facility] Comment on above: Performed By: #### 4 [id number] #### [facility] [address] [place] [address] UA Protein Negative Normal Negative [facility] Comment on above: Performed By: #### 4 [id number] #### [facility] [address] [place] [address] UA Spec Grav 1.023 Invalid Interpretation Code 1.005-1.030 [facility] Comment on above: Performed By: #### 4 [id number] #### [facility] [address] [place] [address] UA Urobilinogen Negative Normal Negative [facility] Comment on above: Performed By: #### 4 [id number] #### [facility] [address] [place] [address] Urobilinogen (U) [Mass/Vol] Negative Normal Negative [facility] Comment on above: Performed By: #### 4 [id number] #### [facility] [address] [place] [address] URINALYSISOrdered By: SYSTEM SYSTEM on 04-15-2025 Bilirubin Ql (U) Negative Normal Negativemg/ d L [facility] [place]A Auto SS Clarity (U) Clear (04/15/25 4:58 AM) Normal Clear [facility] UA Auto SS Color (U) Light-Yellow 1 (04/15/25 4:58 AM) Normal Yellow [facility] UA Auto SS Comment on above: Interpretive Data: M icroscopic readings are only performed on those samples that meet specific criteria set forth by [facility]. Glucose Ql (U) 4+ mg/dL Invalid Interpretation Code Negativemg/d L FT UA Auto SS Hemoglobin Auto test strip (U) [Mass/Vol] Trace mg/dL Invalid Interpretation Code Negativemg/d L FT UA Auto SS Ketones Auto test strip Ql (U) 1+ mg/dL Invalid Interpretation Code Negativemg/d L FT UA Auto SS Leukocyte esterase Auto test strip Ql (U) Negative Normal NegativeLeu/ uL FT UA Auto SS Nitrite Auto test strip Ql (U) Negative Normal Negativemg/d L FT UA Auto SS pH (U) 6.0 *NA* (04/15/25 4:58 AM) Invalid Interpretation Code 5.0 - 9.0 FT UA Auto SS Protein Ql (U) Negative Normal Negativemg/d L FT UA Auto SS Specific gravity (U) [Rel density] 1.023 *NA* (04/15/25 4:58 AM) Invalid Interpretation Code 1.005 - 1.030 FT UA Auto SS Urobilinogen (U) [Mass/Vol] Negative Normal Negativemg/d L [facility] UA Auto SS URINALYSISOrdered By: Nick Farmer on 04-15-2025 UA Spec Desc Clean Catch (04/15/25 4:58 AM) Normal [facility] UA Auto SS Vit B12on 04-15-2025 Cobalamin (Vitamin B12) [Mass/Vol] 573 pg/mL Normal 50-1500 [facility] Comment on above: Performed By: #### 2 [id number] #### [facility] [address] [place] [address] eGFRon 04-15-2025 eGFR 39 mL/min/1.73 m2 Low >=59 [facility] Comment on above: Performed By: #### 1 [id number] #### [facility] [address] [place] [address] BB Draw & Holdon 04-14-2025 BB D&H Sample drawn for Blo od Ba Normal [facility] Comment on above: Performed By: #### 1 [id number] #### [facility] [address] [place] [address] BMPon 04-14-2025 Anion gap [Moles/Vol] 15 mmol/L Normal 6-16 [facility] Comment on above: Performed By: #### 2 [id number] #### [facility] [address] [place] [address] BUN/Creat Ratio 16 No Units Normal 10-20 [facility] Comment on above: Performed By: #### 2 [id number] #### [facility] [address] [place] [address] Calcium [Mass/Vol] 9.0 mg/dL Normal 8.9-11.1 [facility] Comment on above: Performed By: #### 2 [id number] #### [facility] [address] [place] [address] Chloride [Moles/Vol] 103 mmol/L Normal 101-111 [facility] Comment on above: Performed By: #### 2 [id number] #### [facility] [address] [place] [address] CO2 [Moles/Vol] 24 mmol/L Normal 21-31 [facility] Comment on above: Performed By: #### 2 [id number] #### [facility] [address] [place] [address] Creatinine [Mass/Vol] 1.8 mg/dL High 0.5-1.3 [facility] Comment on above: Performed By: #### 2 [id number] #### [facility] [address] [place] [address] Glucose [Mass/Vol] 245 mg/dL High 55-199 [facility] Comment on above: Performed By: #### 2 [id number] #### [facility] [address] [place] [address] Potassium [Moles/Vol] 5.0 mmol/L Normal 3.5-5.3 [facility] Comment on above: Performed By: #### 2 [id number] #### [facility] [address] [place] [address] Sodium [Moles/Vol] 137 mmol/L Normal 135-145 [facility] Comment on above: Performed By: #### 2 [id number] #### [facility] [address] [place] [address] Urea nitrogen [Mass/Vol] 28 mg/dL High 5-21 [facility] Comment on above: Performed By: #### 2 [id number] #### [facility] [address] [place] [address] BNPon 04-14-2025 Natriuretic peptide B (Bld) [Mass/Vol] 512 pg/mL High 5-80 [facility] Comment on above: Performed By: #### 1 [id number] #### [facility] [address] [place] [address] CBC w/ Auto Diffon 5 Basophil Absolute 0.1 E9/L Normal 0.0-0.2 [facility] Comment on above: Performed By: #### 2 [id number] #### [facility] [address] [place] [address] Basophils/100 WBC (Bld) 0.8 % Normal 0.0-2.0 [facility] Comment on above: Performed By: #### 2 [id number] #### [facility] [address] [place] [address] Eos Absolute 0.1 E9/L Normal 0.0-0.5 [facility] Comment on above: Performed By: #### 2 [id number] #### [facility] [address] [place] [address] Eosinophils/100 WBC (Bld) 1.5 % Normal 0.0-8.0 [facility] Comment on above: Performed By: #### 2 [id number] #### [facility] [address] [place] [address] Erythrocyte distribution width (RBC) [Ratio] 19.7 % High 10.9-14.2 [facility] Comment on above: Performed By: #### 2 [id number] #### [facility] [address] [place] [address] Hematocrit (Bld) [Volume fraction] 33.7 % Low 37.7-49.0 [facility] Comment on above: Performed By: #### 2 [id number] #### [facility] [address] [place] [address] Hemoglobin (Bld) [Mass/Vol] 11.0 g/dL Low 13.5-17.5 [facility] Comment on above: Performed By: #### 2 [id number] #### [facility] [address] [place] [address] Lymph Absolute 0.6 E9/L Low 1.0-4.0 [facility] Comment on above: Performed By: #### 2 [id number] #### [facility] [address] [place] [address] Lymphocytes/100 WBC (Bld) 7.8 % Low 14.0-50.0 [facility] Comment on above: Performed By: #### 2 [id number] #### [facility] [address] [place] [address] MCH (RBC) [Entitic mass] 27.5 pg Normal 27.0-34.0 [facility] Comment on above: Performed By: #### 2 [id number] #### [facility] [address] [place] [address] MCHC (RBC) [Mass/Vol] 32.7 g/dL Normal 31.4-36.0 [facility] Comment on above: Performed By: #### 2 [id number] #### [facility] [address] [place] [address] MCV (RBC) [Entitic vol] 84.0 fL Normal 80.0-100.0 [facility] Comment on above: Performed By: #### 2 [id number] #### [facility] [address] [place] [address] Hardee Absolute 0.8 E9/L Normal 0.2-1.0 [facility] Comment on above: Performed By: #### 2 [id number] #### [facility] [address] [place] [address] Monocytes/100 WBC (Bld) 9.9 % Normal 4.0-14.0 [facility] Comment on above: Performed By: #### 2 [id number] #### [facility] [address] [place] [address] Neutro Absolute 6.5 E9/L Normal 2.0-7.5 [facility] Comment on above: Performed By: #### 2 [id number] #### [facility] [address] [place] [address] Neutro Auto 80.0 % High 36.0-75.0 [facility] Comment on above: Performed By: #### 2 [id number] #### [facility] [address] [place] [address] Platelet 216.0 E9/L Normal 150.0-500.0 [facility] Comment on above: Performed By: #### 2 [id number] #### [facility] [address] [place] [address] Platelet mean volume (Bld) [Entitic vol] 9.3 fL Normal 6.4-10.8 [facility] Comment on above: Performed By: #### 2 [id number] #### [facility] [address] [place] [address] RBC 4.0 E12/L Low 4.3-5.9 [facility] Comment on above: Performed By: #### 2 [id number] #### [facility] [address] [place] [address] WBC 8.1 E9/L Normal 4.0-11.0 [facility] Comment on above: Result Comment: Rosaura pheral smear review performed. Performed By: #### 2 [id number] #### [facility] [address] [place] [address] CHEMISTRYOrdered By: Minuum SYSTEM on 04-14-2025 Lactate [Moles/Vol] 1.5 mmol/L Normal 0.5 - 2. 2 mmol/L [facility] Procalcitonin 0.06 ng/mL Normal 0.00 - 0.50 ng/mL [facility] Comment on above: Interpretive Data: < 0.5 ng/mL Low risk of severe sepsis and/or shock >2.0 ng/mL High risk of severe sepsis and/or shock Concentrations under 0.5 ng/mL do not exclude local infections or systemic infections in their initial stages (e.g.. under six hours from onset of illness). PCT concentrations between 0.5 and 2.0 ng/mL should be interpreted with consideration of the patient's history. In this range, it is recommended to retest PCT within 6 to 24 hours. CHEMISTRYOrdered By: Summer Mcguire on 04-14-2025 Natriuretic peptide B (Bld) [Mass/Vol] 512 pg/mL High 5 - 80 pg/mL [facility] CHEMISTRYOrdered By: Samir Naidu on 04-14-2025 Magnesium [Mass/Vol] 2.2 mg/dL Normal 1.3 - 2 .4 mg/dL [facility] Troponin HS 18.30 pg/mL Normal 15.90 - 38.40 pg/mL [facility] Comment on above: Interpretive Data: T he 95% CI (Confidence Interval) PPV (Positive Predictive Value) for myocardial infarction in females is 38 pg/mL, in males 51 pg/mL. The results should be used in conjunction with clinical conditions of myocardial infarction. (Access High Sensitivity Troponin I Instructions For Use, Roxane Blanca, June 2018) COAGULATIONOrdered By: Kellee Mcguire on 04-14-2025 aPTT Coag (PPP) [Time] 33.3 s Normal 25.1 - 36.5 second(s) [facility] Comment on above: Interpretive Data: P liliameter 15 days - 4 weeks 1 - 5 months 6 - 11 months 1 - 5 years 6 - 10 years 11 - 17 years PTT Mean: 35.4 (27.6-45.6) Mean: 33.5 (24.8-40.7) Mean: 32.4 (25.1-40.7) Mean: 31.6 (24.0-39.2) Mean: 31.6 (26.9-38.7) Mean: 31.0 (24.6-38.4) Pediatric Reference ranges were obtained from a study by Hood Sun et al. prepared from 1437 samples obtained at 7 different centers using the same coagulation reagent and instrumentation as [facility]. Currently there are no coagulation studies available worldwide for children to 14 days, and no normal ranges. Heparin therapeutic range (represented by Anti-Factor Xa activity of 0.2 - 0.4 U/mL) corresponds to PTT of 56.6 - 109.0 sec. INR Coag (PPP) [Relative time] 0.98 {INR} Invalid Interpretation Code [facility] Comment on above: Interpretive Data: I NR results are specifically intended to assess patients stabilized on long-term Anticoagulation therapy suggested INR s Less Intensive Anticoagulation 2.0 3.0 Conventional Range 3.0 4.5 PT Coag (PPP) [Time] 11.0 s Normal 9.4 - 1 2.5 second(s) [facility] Comment on above: Interpretive Data: 1 5 days - 4 weeks 1 - 5 months 6 -11 months 1-5 years 6-10 years 11 -17 years Mean: 11.2 (9.5-12.6) Mean: 11.0 (9.7-12.8) Mean: 11.0 (9.8-13.0) Mean: 11.3 (9.9-13.4) Mean: 11.7 (10.0-14.6) Mean: 11.8 (10.0 - 14.1) Pediatric Reference ranges were obtained from a study by mayra Phan al. prepared from 1437 samples obtained at 7 different centers using the same coagulation reagent and instrumentation as [facility]. Currently there are no coagulation studies available worldwide for children to 14 days, and no normal ranges. 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 PERICARDIAL EFFUSION MEASURING UP TO 2.3 CM IN THICKNESS. MODERATE RIGHT AND SMALL LEFT PLEURAL EFFUSIONS. EXAM: CT Chest w/o Contrast History: Altered mental status. Hypertension. Technique: Multiple contiguous axial images were obtained of the thorax from the thoracic inlet through the upper abdomen without IV contrast. Multiplanar reformats were obtained. Unless otherwise stated, incidental findings identified in this report do not require routine follow-up imaging. Comparison: Chest radiograph performed earlier on the same date Findings: Visualized portion of the thyroid gland is within normal limits. There are multiple borderline mildly enlarged mediastinal lymph nodes that are likely reactive. No axillary lymphadenopathy. No thoracic aortic aneurysm. Atherosclerotic calcification of the thoracic aorta. Heart size is mildly to moderately enlarged. A pericardial effusion measures up to 2.3 cm along the left ventricle. Coronary artery calcifications are identified. Esophagus is within normal limits. Moderate right and small left pleural effusions with adjacent atelectasis. No suspicious nodule identified given respiratory motion artifact. No pneumothorax. Visualized upper abdomen demonstrates no acute abnormality. Severe left renal atrophy. No acute osseous abnormality. Decreased bone mineralization. Degenerative changes of the spine. All CT scans at this facility use dose modulation, iterative reconstruction, and/or weight based dosing when appropriate to reduce radiation dose to as low as reasonably achievable. Report Technical Comments: Ordering Provider: Rivas Griggs FINAL REPORT Dictated: 04/14/2025 7:18 pm Yoel Rodriguez DO Signed (Electronic Signature): 04/14/2025 7:18 pm Signed by: Yoel Rodriguez DO Transcribed by: MARII Technologist: ADÁN Tovar [facility] CT Head or Brain w/o Contras ton 04-14-2025 CT Head or Brain w/o Contrast Exam Date/Time: 04/14/2025 17:02 EDT Reason for Exam: Neuro deficit, acute, stroke suspected;Stroke Report IMPRESSION: 8MM HYPODENSITY OF THE HEAD OF THE LEFT CAUDATE NUCLEUS IS CONCERNING FOR SUBACUTE ISCHEMIA. NO ACUTE INTRACRANIAL HEMORRHAGE. EXAMINATION: CT of the brain without contrast HISTORY: Altered mental status. Hypertension. COMPARISON: None available TECHNIQUE: Multiple axial images were obtained of the brain from the skull base through the vertex. Multiplanar reformats were obtained. FINDINGS: Prominence of the sulci and ventricles compatible with mild generalized parenchymal volume loss. Leach-white matter differentiation is preserved. Areas of bilateral supratentorial white matter hypoattenuation are nonspecific but most likely due to chronic small vessel ischemic changes in a patient of this age. 8 mm hypodensity of the head of the left caudate nucleus. No acute hemorrhage or abnormal extra-axial fluid collection. Basal cisterns are patent. No mass effect or midline shift. The visualized paranasal sinuses and mastoid air cells are clear. Calvarium is intact. All CT scans at this facility use dose modulation, iterative reconstruction, and/or weight based dosing when appropriate to reduce radiation dose to as low as reasonably achievable. Ordering Provider: Nick Farmer FINAL REPORT Dictated: 04/14/2025 5:08 pm Yoel Rodriguez DO Signed (Electronic Signature): 04/14/2025 5:08 pm Signed by: Yoel Rodriguez DO Transcribed by: MARII Technologist: ADÁN Tovar [facility] CTA Headon 04-14-2025 CTA Head Exam Date/Time: 04/14/2025 17:33 EDT Reason for Exam: NEURO DEFICIT, ACUTE, STROKE SUSPECTED;Other (please specify) Report Please see CTA neck report. 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 CTA NECK: NO DISSECTION OR HIGH-GRADE STENOSIS. Exam: CT angiography of the head CT angiography of the neck History: Altered mental status. Hypertension. Headache. Technique: Axial images were obtained from the thoracic inlet through the [place] of [place] after administration of intravenous contrast. Multiplanar reformatted images and multiplanar maximum intensity projection images were obtained, as were postprocessed 3-D volume rendered images. Luminal narrowings are estimated using NASCET criteria. Comparison: None available Findings: CTA neck: Normal appearance of the aortic arch and is branches without high-grade stenosis or aneurysm. The bilateral common carotid arteries are of normal course and caliber. The bilateral external carotid arteries are of normal course and caliber. Atherosclerotic calcification at the carotid bulbs. Approximately 50% stenosis of the proximal right internal carotid artery at its origin for length of approximately 1 cm. Approximately 50% stenosis of the proximal left internal carotid artery at its origin for a length of approximately 0.5 cm. The vertebral arteries are normal in course and caliber. No dissection, high grade stenosis or aneurysm. Moderate right pleural effusion. Degenerative changes of the cervical spine. Report CTA head: The internal carotid arteries through the skull base are patent. The bilateral middle cerebral arteries through the trifurcation and M3 branches are patent. Approximately 50% stenosis of the proximal M1 segment of the right middle cerebral artery. The basilar artery and posterior cerebral arteries are patent. Posterior communicating arteries are patent. The bilateral anterior cerebral arteries and anterior communicating artery are patent. No aneurysm or high-grade stenosis. Dural venous sinuses are patent. All CT scans at this facility use dose modulation, iterative reconstruction, and/or weight based dosing when appropriate to reduce radiation dose to as low as reasonably achievable. Technical Comments: GFR (mL/min/1/73m2) n/a-rr stroke Contrast: Isovue 370 Contrast amount in ml's: 100.00 Ordering Provider: Rivas Griggs FINAL REPORT Dictated: 04/14/2025 5:51 pm Yoel Rodriguez DO Signed (Electronic Signature): 04/14/2025 5:51 pm Signed by: Yoel Rodriguez DO Transcribed by: MARII Technologist: CONSTANTIN Normal [facility] Capillary Glucose POCon 03-17 Glucose [Mass/Vol] 261 mg/dL High 55-99 [facility] Comment on above: Performed By: #### 2 [id number] #### [facility] [address] [place] [address] ED Clinical Summaryon 2024 ED Clinical Summary ED Clinical Summary [address] [address] ED Clinical Summary Person Information Name: NADIR BETH [facility] Age: 85 Years : 1940 Sex: Male Language: Jamaican PCP: Van Youssef MD Marital Status: Visit Id: Visit Reason: Altered mental status; Headache; Potential stroke; stroke Speciality: Acuity: 2 Enc Type: Inpatient Med Service: Medical Arrival: 04/14/2025 16:53:36 Discharge: LOS: 000 03:59 Checkin: 04/14/2025 16:53:36 Checkout: 04/14/2025 20:52:18 Dispo Type: Admitted as IP to this [facility] EVENTS: Event Name Event Status Request Date/Time Start Date/Time Complete Date/Time Arrive Complete 04/14/2025 16:53:36 04/14/2025 16:53:36 04/14/2025 16:53:36 Document Home Meds Request 04/14/2025 16:53:36 Triage Complete 04/14/2025 16:53:36 04/14/2025 16:56:24 04/14/2025 16:56:24 Bed Assign Complete 04/14/2025 16:53:36 04/14/2025 16:53:36 04/14/2025 16:53:36 Dr Exam Complete 04/14/2025 16:53:36 04/14/2025 17:02:37 04/14/2025 17:02:37 RN Exam Complete 04/14/2025 16:53:36 04/14/2025 17:46:05 04/14/2025 17:46:05 RR Stroke Request 04/14/2025 16:54:26 EKG Complete 04/14/2025 16:54:28 04/14/2025 17:34:55 NPO Request 04/14/2025 16:54:28 Pending Labs Request 04/14/2025 16:54:28 Blood Collect Request 04/14/2025 16:54:28 Lab Complete 04/14/2025 16:54:28 04/14/2025 18:00:30 Patient Care Request 04/14/2025 16:54:28 CT Complete 04/14/2025 16:54:28 04/14/2025 16:56:47 04/14/2025 17:02:40 X-Ray Complete 04/14/2025 16:54:28 04/14/2025 17:09:04 04/14/2025 17:32:22 RT Request 04/14/2025 16:54:28 CT Complete 04/14/2025 17:00:09 04/14/2025 17:25:12 04/14/2025 17:33:08 Registration Complete 04/14/2025 17:00:38 04/14/2025 17:00:38 04/14/2025 17:00:38 Reg Complete Request 04/14/2025 17:00:38 Reg Bed Request Complete 04/14/2025 17:00:38 04/14/2025 17:00:38 04/14/2025 17:00:38 Registration Complete 04/14/2025 17:02:37 04/14/2025 18:39:48 04/14/2025 18:39:48 Consult Request 04/14/2025 17:03:14 Pending Labs Complete 04/14/2025 17:12:20 04/14/2025 17:12:20 04/14/2025 17:56:16 Lab Complete 04/14/2025 17:12:20 04/14/2025 17:12:20 04/14/2025 17:56:16 Pending Labs Cancel 04/14/2025 17:27:45 04/14/2025 17:28:36 Lab Cancel 04/14/2025 17:27:45 04/14/2025 17:28:36 Pending Labs Complete 04/14/2025 17:29:29 04/14/2025 17:29:29 04/14/2025 17:56:16 Lab Complete 04/14/2025 17:29:29 04/14/2025 17:29:29 04/14/2025 17:56:16 Wet Read Request 04/14/2025 17:32:22 Fall Risk Request 04/14/2025 17:46:05 RR Stroke Request 04/14/2025 17:46:05 Pending Labs Inlab 04/14/2025 17:59:16 Lab Inlab 04/14/2025 17:59:16 Meds Admin Cancel 04/14/2025 18:03:20 04/14/2025 18:38:02 Pending Labs Complete 04/14/2025 18:03:30 04/14/2025 18:33:40 Lab Complete 04/14/2025 18:03:30 04/14/2025 18:33:40 Pending Labs Complete 04/14/2025 18:13:27 04/14/2025 18:13:27 04/14/2025 18:38:50 Meds Admin Cancel 04/14/2025 18:50:54 04/14/2025 18:57:50 Meds Admin Request 04/14/2025 18:51:36 CT Complete 04/14/2025 18:51:56 04/14/2025 18:52:45 04/14/2025 19:05:02 Dr Exam Complete 04/14/2025 18:55:20 04/14/2025 18:55:20 04/14/2025 18:55:20 Registration Complete 04/14/2025 18:55:20 04/14/2025 19:11:01 04/14/2025 19:11:01 Pending Labs Request 04/14/2025 19:13:05 Lab Request 04/14/2025 19:13:05 Pending Labs Complete 04/14/2025 19:18:32 04/14/2025 19:18:32 04/14/2025 19:18:33 Meds Admin Complete 04/14/2025 19:34:39 04/14/2025 19:38:44 Admit Request 04/14/2025 19:37:15 Patient Care Request 04/14/2025 19:37:17 Patient Care Request 04/14/2025 19:37:17 Patient Care Request 04/14/2025 19:37:18 Patient Care Request 04/14/2025 19:37:18 Medicare Form Complete 04/14/2025 19:37:19 04/14/2025 19:43:47 Patient Care Request 04/14/2025 19:37:19 Patient Care Request 04/14/2025 19:37:19 Pending Labs Request 04/14/2025 19:50:50 ADDRESS: [address] [place] [id number] PHYS DOC NOTES: Addendum by Oleg Doll DO on April 14, 2025 19:50:02 EDT MEDICAL INFORMATION: Prescriptions Given: Medications to Continue with No Changes Other Medications acetaminophen-hydrocod one (Goldvein 325 mg-5 mg oral tablet) 1 Tablets [...] By Mouth once a day (in the morn (more content not included)... Normal [facility] ED Note-Physicianon 04-14-20 ED Note-Physician ED Note-Physician Basic Information Time Seen: Indu Slaughter, Rivas Hill 04/14/2025 17:02 Chief Complaint pt presents via [facility] d/t ams. family states pt complains of worst headache of his life. LKW today @ 1530. R sided weakness on arrival. pt slow to respond History of Present Illness The patient is an 85-year-old male past medical history of DVT on Xarelto, hypertension, diabetes mellitus, chronic kidney disease who presented to the emergency room via EMS for possible stroke. Per EMS the patient had complained of severe headache 1 hour prior to the arrival then after that he was not responsive. The patient is awake and alert, mumbles and does not follow commands consistently. The patient's came later and stated that this afternoon around 3 PM he looked like he was not himself. He appeared to be weak. He normally walks without a walker. She gave him the walker. At 3:30 he started complaining of severe headache. She gave him couple tablets which she states they were for headache and she does not know what they are exactly where and his speech was slurred. She called 911. She states he ambulated with walker outside and waiting for the EMS. Per EMS the patient had complained of a headache to them. He denies any pain when asked if he is on any pain. Review of Systems Unable to obtain due to clinical condition. Physical Exam Vitals & Measurements T: 36.3 ???C(Oral) HR: 83(Monitored) RR: 20 BP: 218/100 SpO2: 95% HT: 185 cm WT: 84.5 kg BMI: 24.69 General: alert, no acute distress Skin: warm, dry Head: no trauma, normocephalic Neck: Trachea midline, no tenderness, supple Eye: normal conjunctiva, sclera clear, PERRL, EOMI, vision unchanged ENMT: Oral mucosa moist, no pharyngeal erythema or exudate Cardiovascular: regular rate and rhythm Respiratory: Lungs decreased breath sounds bilaterally, respirations non labored, breath sounds equal, symmetrical expansion Gastrointestinal: soft, non distended, no tenderness, no guarding Extremities: no deformity, no trauma, bilateral pedal edema Neurological: Alert and oriented, CN II-XII intact, weakness on the right, sensation equal & normal bilaterally, speech dysarthic, aphasia Psychiatric: cooperative Medical Decision Making MEDICAL DECISION MAKING Number and Complexity of Problems Differential Diagnosis: [] [facility] Data External documents reviewed: [] My EKG interpretation: [] My CT interpretation: [] My X-ray interpretation: [] My Ultrasound interpretation: [] Decision rules/scores evaluated: [] Discussed with: Dr Narayan Treatment and Disposition ED Course: The patient presented with strokelike symptoms. He does have right-sided deficit with the facial droop and aphasia and slurred speech. The NIH stroke scale score is 9. The patient is not a candidate for tenecteplase because he is on Xarelto. The CT of the brain shows density on the left caudate nucleus consistent with subacute ischemic stroke. The EKG shows atrial fibrillation. The chest x-ray shows right upper lung nodule with a right pleural effusion and right basilar mass and the radiologist is reading consistent with congestive heart failure. BN peptide is elevated. Less likely pneumonia. Procalcitonin is normal. Patient is afebrile. White count is normal. The has reported some cough recently. Blood work reviewed. Creatinine is 1.8. His creatinine in November was 1.8. The states that he is not allergic to IV contrast however has caused kidney damage to him and they do not wanted to give it to him. We discussed the potential of large vessel occlusion versus kidney injury from contrast and the risks were explained to the and she agreed to get the CTA scan of the head and neck with IV contrast. 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 The case was discussed with who agreed patient is not a candidate for thrombolytics and after reviewing CT scans himself he recommends that patient be started on a low intensity dose heparin and patient can stay to our facility and figure out the right upper lung mass. At 1 point his blood pressure increased to 212/122 and shortly repeat after that improved to 207/107. recommends treating blood pressure if systolic is more than 220. Because his diastolic is 122 we were going to order labetalol however blood pressure improved on its own. The care of the patient was transitioned to Dr. Charles upon shift change to follow-up with CT results of the chest and admission to the hospital. Shared decision making: Patient, patient's and his daughter Code status: [] Critical Care Time: 40 minutes, critical care time is separate from any procedures that are performed. The following was considered in the determination of critical care but not limited to the level medical decision-making, intensive cardiac and/ (more content not included)... Normal [facility] Comment on above: Result Comment: Elec tronically Signed By: Oleg Doll DO.mary\Date and Time Signed: 04/14/25 19:50 EDT ED Patient Education Noteon 04-14-2025 ED Patient Education Note ED Patient Education Note Normal [facility] ED Patient Summaryon 025 ED Patient Summary ED Patient Summary [place] [id number] Patient Discharge Instructions Person Information Name: NADIR BETH Age: 85 Years Arrival Date: 04/14/2025 16:53:36 Discharge Diagnosis: 1:CVA (cerebrovascular accident); 2:Congestive heart failure; 3:Chronic kidney disease; 4:Hypertensive urgency; Pericardial effusion; Pleural effusion Primary Care Physician: Van Youssef MD Provider Information Primary Provider: Rivas Griggs M.D. Advanced Leather Staker:None The exam and treatment you received in the Emergency Department were for an urgent problem and are not intended as complete care. It is important that you follow up with a doctor, nurse practitioner, or physician???s religious assistant for ongoing care. If your symptoms become worse or you do not improve as expected and you are unable to reach your usual health care provider, you should return to the Emergency Department. We are available 24 hours a day. NADIR BETH has been given the following list of patient education materials, prescriptions and follow-up instructions: Follow-up Instructions: In the event that this physician does not participate in your insurance network, please consult with your insurance company to find a nearby participating provider. Patient Education Materials: A MESSAGE TO ALL PATIENTS REGARDING OPIOIDS PRESCRIPTION OPIOIDS: WHAT YOU NEED TO KNOW Prescription opioids can be used to help relieve cnuxxiqt-yf-qfupbr pain and are often prescribed following a surgery or injury, or for certain health conditions. These medications can be an important part of the treatment but also come with serious risks. It is important to work with your healthcare provider to make sure you are getting the safest, most effective care. WHAT ARE THE RISKS AND SIDE EFFECTS OF OPIOID USE? Prescription opioids carry serious risks of addiction and overdose, especially with prolonged use. An opioid overdose, often marked by slowed breathing, can cause sudden . The use of prescription opioids can have a number of side effects as well, even when taken as directed: ??? Tolerance???meaning you might need to take more of the medication for the same pain relief ??? Physical dependence???meaning you have symptoms of withdrawal when a medication is stopped ??? Increased sensitivity to pain ??? Constipation ??? Nausea, vomiting, and dry mouth ??? Sleepiness and dizziness ??? Confusion ??? Depression ??? Low levels of testosterone that can result in lower sex drive, energy, and strength ??? Itching and sweating RISKS ARE GREATER WITH: ??? History of drug misuse, substance use disorder, or overdose ??? Mental health conditions (such as depression or anxiety) ??? Sleep apnea ??? Older age (65 years and older) ??? Avoid alcohol while taking prescription opioids. Also, unless specifically advised by your health care provider, medications to avoid include: ??? Benzodiazepines (such as Xanax or Valium) ??? Muscle relaxants (such as Soma or Flexeril) ??? Hypnotics (such as Ambien or Lunesta) ??? Other prescription opioids KNOW YOUR OPTIONS Talk to your health care provider about ways to manage your pain that don???t involve prescription opioids. Some of these options may actually work better and have fewer risks and side effects. Options may include: ??? Pain relievers such as acetaminophen, ibuprofen, and naproxen ??? Some medication that are also used for depression or seizures ??? Physical therapy and exercise ??? Cognitive behavioral therapy, a psychological, goal-directed approach, in which patients learn how to modify physical, behavioral, and emotional triggers of pain and stress. IF YOU ARE PRESCRIBED OPIOIDS FOR PAIN: ??? Never take opioids in greater amounts or more often than prescribed. ??? Follow up with your primary health care provider. o Work together to create a plan on how to manage your pain. o Talk about ways to help manage your pain that don???t involve prescription opioids. o Talk about any and all concerns and side effects. ??? Help prevent misuse and abuse o Never sell or share prescription opioids. o Never use another person???s prescription opioids. ??? Store prescription opioids in a secure place and out of reach of others (this may include visitors, children, friends, and family). ??? Safely dispose of unused prescription opioids: Find your community drug take-back program or your pharmacy mail-back program, or flush them down the toilet, following guidance from the Food and Drug Administration (www.fda.gov/Drugs/Res ourcesForYou). ??? Visit www.cdc.gov/drugoverdo se to learn about the risks of opioids abuse and overdose. ??? If you believe you may be struggling with addiction, tell your health inspector health care facilities and ask for guidance or call [facility] (more content not included)... Normal [facility] Lactic Acidon 04-14-2025 Lactic Acid Lvl 1.5 mmol/L Normal 0.5-2.2 [facility] Comment on above: Performed By: #### 2 [id number] #### [facility] [address] [id number] Magnesiumon 04-14-2025 Magnesium [Mass/Vol] 2.2 mg/dL Normal 1.3-2.4 [facility] Comment on above: Performed By: #### 2 [id number] #### [facility] [address] [place] [address] No Panel InformationOrdered By: [facility] on 04-14-2025 Blood Culture Charcoal No growth at 4 days. Final to follow at 7 days. [facility] Blood Culture Charcoal No growth at 4 days. Final to follow at 7 days. [facility] PT & PTTon 04-14-2025 INR Coag (PPP) [Relative time] 0.98 {INR} Invalid Interpretation Code [facility] Comment on above: Result Comment: INR results are specifically intended to assess patients stabilized on long-term Anticoagulation therapy suggested INR???s ???Less Intensive Anticoagulation??? 2.0 ??? 3.0 Conventional Range 3.0 ??? 4.5 Performed By: #### 1 [id number] #### [facility] [address] [place] [address] PT 11.0 second(s) Normal 9.4-12.5 [facility] Comment on above: Result Comment: 15 d ays - 4 weeks 1 - 5 months 6 -11 months 1- 5 years 6-10 years 11 -17 years Mean: 11.2 (9.5-12.6) Mean: 11.0 (9.7-12.8) Mean: 11.0 (9.8-13.0) Mean: 11.3 (9.9-13.4) Mean: 11.7 (10.0-14.6) Mean: 11.8 (10.0 - 14.1) Pediatric Reference ranges were obtained from a study by paul Phan prepared from 1437 samples obtained at 7 different centers using the same coagulation reagent and instrumentation as [facility]. Currently there are no coagulation studies available worldwide for children to 14 days, and no normal ranges. Performed By: #### 1 [id number] #### [facility] [address] [place] [address] PTT 33.3 second(s) Normal 25.1-36.5 [facility] Comment on above: Result Comment: Para meter 15 days - 4 weeks 1 - 5 months 6 - 11 months 1 - 5 years 6 - 10 years 11 - 17 years PTT Mean: 35.4 (27.6-45.6) Mean: 33.5 (24.8-40.7) Mean: 32.4 (25.1-40.7) Mean: 31.6 (24.0-39.2) Mean: 31.6 (26.9-38.7) Mean: 31.0 (24.6-38.4) Pediatric Reference ranges were obtained from a study by paul Phan prepared from 1437 samples obtained at 7 different centers using the same coagulation reagent and instrumentation as [facility]. Currently there are no coagulation studies available worldwide for children to 14 days, and no normal ranges. Heparin therapeutic range (represented by Anti-Factor Xa activity of 0.2 - 0.4 U/mL) corresponds to PTT of 56.6 - 109.0 sec. Performed By: #### 1 [id number] #### [facility] [address] [place] [address] Pre-Arrival Noteon Pre-Arrival Note Pre-Arrival Note Pre-Arrival Summary Name: , [facility] Current Date: 04/14/2025 16:54:02 EDT Gender: Male Date of : Age: 85 Pre-Arrival Type: EMS ETA: 04/14/2025 17:17:00 EDT Primary Care Physician: Presenting Problem: Pre-Arrival User: Abdoul Mcmillan Referring Source: Location: [place] Completion Date/Time: 04/14/2025 16:47:00 [facility] Emergency Department Pre-Hospital Report Form Vital Signs: Pre-Hospital Report: Treatment in Route: Response to Treatment: Misc. Issues: Normal [facility] Procalcitoninon 04-14-2025 Procalcitonin .06 ng/mL Normal .00-.50 [facility] Comment on above: Result Comment: <0.5 ng/mL Low risk of severe sepsis and/or shock >2.0 ng/mL High risk of severe sepsis and/or shock Concentrations under 0.5 ng/mL do not exclude local infections or systemic infections in their initial stages (e.g.. under six hours from onset of illness). PCT concentrations between 0.5 and 2.0 ng/mL should be interpreted with consideration of the patient's history. In this range, it is recommended to retest PCT within 6 to 24 hours. Performed By: #### 2 [id number] #### [facility] [address] [place] [address] Troponin 0 Hr.on 04-14-2025 Troponin HS 18.30 pg/mL Normal 15.90-38.40 [facility] Comment on above: Result Comment: The 95% CI (Confidence Interval) PPV (Positive Predictive Value) for myocardial infarction in females is 38 pg/mL, in males 51 pg/mL. The results should be used in conjunction with clinical conditions of myocardial infarction. (Access High Sensitivity Troponin I Instructions For Use, Roxane Dille, June 2018) Performed By: #### 1 [id number] #### [facility] [address] [place] [address] UA with Cult Rflxon 04-14-20 25 UA Spec Desc Clean Catch Normal [facility] Comment on above: Performed By: #### 4 [id number] #### [facility] [address] [place] [address] XR Chest Single Viewon 04-14 XR Chest Single View Exam Date/Time: 04/14/2025 17:32 EDT Reason for Exam: Chest pain Report IMPRESSION: FINDINGS LIKELY REPRESENTING FLUID OVERLOAD/CHF. EXAM: XR Chest Single View History: Chest pain Technique: Portable AP view of the chest. Comparison: None available Findings: Atherosclerotic calcification of the thoracic aorta. Heart size is enlarged. Pulmonary vascular congestion. Moderate right and small left pleural effusions. Patchy right lung base opacities. No pneumothorax. No acute osseous abnormality. Ordering Provider: Nick Farmer FINAL REPORT Dictated: 04/14/2025 6:09 pm Yoel Rodriguez DO Signed (Electronic Signature): 04/14/2025 6:09 pm Signed by: Yoel Rodriguez DO Transcribed by: MARII Technologist: ADÁN Normal [facility] eGFRon 04-14-2025 eGFR 36 mL/min/1.73 m2 Low >=59 [facility] Comment on above: Performed By: #### 1 [id number] #### [facility] [address] [place] [address] Office Visiton 03-12-2025 Follow-up visit [id number] Nadir Beth 1940 M Date Provider Department Center 03/12/2025 CLARIBEL VILLALOBOS [facility] Alberto Hos Family History Problem Relation Age of Onset Coronary artery disease Father Family Status - Relation Status Age at Father Level of Service:54527 DE OFFICE/OUTPATIENT ESTABLISHED HIGH MDM 40 MIN Normal [facility] 02-28-2025 -- Attestation signed by Albaro Faulkner MD at 03/01/2025 6:06 PM I personally saw and examined the patient on the same date of service as resident/fellow Dr chilel. I discussed the findings and therapeutic plan with the resident/fellow Dr chilel. I agree with the documentation, except for any edits/updates below. Teaching Physician's Revisions: None Albaro Faulkner MD, [facility] History Of Present Illness Nadir Beth is a 85 y.o. male presenting with aortic stoneosis for MARK. Past Medical History He has a past medical history of Atrial fibrillation ([facility]), CHF (congestive heart failure) ([facility]), Chronic kidney disease, COPD (chronic obstructive pulmonary disease) ([facility]), Coronary artery disease, Diabetes mellitus ([facility]), Heart valve disease, Hypertension, Pericardial [...] Father Allergies Iodinated contrast media, Nitroglycerin, and Ezyqcjn-lyq-zwy reductase inhibitors Medications (Not in a hospital [...] Imaging Results Transesophageal echo (MARK) Addendum: 1 OR [facility] Heart Station [address] [place] [address] [phone] (fax) Transesophageal Echocardiogram-[facility] Name: NADIR BETH Study Date: 08/31/2023 02:31 PM B/P: 190 mmHg/86 mmHg HR: 92 bpm Date of : 1940 Location: [facility] Height: 71 in. Age: 83 year(s) Patient Room: Weight: 210 lb. Gender: Male Patient Status: OutPt BSA: 2.15 m2 Indication: Aortic Valve Stenosis Examination: MARK/Limited Doppler/CFI Image Quality: Excellent Patient Consent: Informed, written consent was obtained for the procedure Exam Location: A MARK was performed in the [facility] without complications Anesthesia Pharyngeal anesthesia with viscous Lidocaine Conclusions Left Ventricle: Global left ventricular systolic function is hyperdynamic. EF range is estimated at 65 % -70 %. No regional wall motion abnormality. Right Ventricle: The right ventricle appears normal in size. Normal right kari (more content not included)... Normal [facility] NURSNOTEon 02-28-2025 NURSNOTE Bedside swallow stud [...] with all of belongings. Normal [facility] Telephoneon 02-21-2025 Telephone [id number] Nadir Beth 1940 M Date Provider Department Center 02/21/2025 RABIA KONG [facility] V[facility] OR HeartVAS Family History Problem Relation Age of Onset Coronary artery disease Father Family Status - Relation Status Age at Father Normal [facility] Follow-Upon 01-03-2025 Follow-Up [id number] Nadir Beth 1940 M Date Provider Department Center 01/03/2025 Salvador-RUTHIE LINDA [facility] NEPHRO Comprehensiv Family History Problem Relation Age of Onset Coronary artery disease Father Family Status - Relation Status Age at Father Level of Service:19876 DE OFFICE/OUTPATIENT ESTABLISHED MOD MDM 30 MIN () Reason for Visit and Comments: Follow-up [200992] [facility] Office Visiton 12-14-2024 Follow-up visit [id number] Nadir Beth 1940 M Date Provider Department Center 12/14/2024 CLARIBEL VILLALOBOS [facility] Family History Problem Relation Age of Onset Coronary artery disease Father Family Status - Relation Status Age at Father Level of Service:88865 DE OFFICE/OUTPATIENT ESTABLISHED MOD MDM 30 MIN [facility] Ambulatory Visit Summaryon 0 12-04-2024 [...] This Is Your Medications List acetaminophen-hydrocod one (Goldvein 325 mg-5 mg oral tablet) ciprofloxacin (Cipro [...] HENDERSON, LU Sweet Where: [facility] [address] [address]- You Need to Schedule the Following Appointments Follow Up with ADRIAN GUSTAFSON, ADAN CHO When: In 6 months Comments: Can see DIAMANTE, w/PVR Where: Medications What How Much When Why Instructions Unchanged acetaminophen-hydrocod one (Goldvein 325 mg-5 mg oral tablet) 1 Tablets [...] concerns Uncha (more content not included)... Normal [facility] Urology Office/Clinic Noteon 12-04-2024 Urology Office/Clinic Note [...] out of his penis. Pt presented to [facility] ER 10/28/24 due to clot retention. Seen [...] 7. 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) Pt presented to [facility] ER 08/06/24 with redness on [...] penis. -Cont symptomatic monitoring 8. Anticoagulated (Z79.01: emt intermediate (current) use of anticoagulants) Taking Eliquis, has restarted since UroLift. Hx of cardioversion. Increased risk for bleeding. Elevated r (more content not included)... Normal [facility] Comment on above: Result Comment: Elec tronically Signed By: ADRIAN GUSTAFSON, MARQUIS\.br\Date and Time Signed: 12/04/24 09:21 EST\.br\Electronically Co-Signed By: Deepthi Kevin\.br\Date and Time Co-Signed: 12/04/24 09:11 EST Ambulatory Visit Summaryon 1 01-07-2024 Ambulatory Visit Summary Ambulatory Visit Summary NADIR BETH :1940 Visit Date:11/06/2024 Ambulatory Visit Instructions Your Care Team Attending Physician - SAMANTHA GUSTAFSON, Mejia Zimmer Primary Care Physician - Van Youssef MD This Is Your Medications List NIFEdipine acetaminophen-hydrocod one (Goldvein 325 mg-5 mg oral tablet) acyclovir apixaban [...] MARQUIS LOUISE MD Where: [facility] [place] [address], [address] [place] [address]- Medications What How Much When Why Instructions Unchanged acetaminophen-hydrocod one (Goldvein 325 mg-5 mg oral tablet) 1 Tablets [...] survey v (more content not included)... Normal [facility] Ambulatory Visit Summaryon 1 01-03-2024 Ambulatory Visit Summary Ambulatory Visit Summary ZOEYNADIR SULLIVAN Joy :1940 Visit Date:11/02/2024 Ambulatory Visit Instructions Your Diagnosis BPH with urinary obstruction Gross hematuria Incomplete bladder emptying OAB (overactive bladder) Acquired buried penis Balanitis Anticoagulated Your Care Team Attending Physician - ADRIAN GUSTAFSON, MARQUIS Primary Care Physician - Van Youssef MD This Is Your Medications List acetaminophen-hydrocod one (Goldvein 325 mg-5 mg oral tablet) ciprofloxacin (Cipro [...] AM EST With: Where: [facility] [address] [place] [address] [place] [address]- Wednesday 8:40 AM EST With: MARQUIS LOUISE MD Where: [facility] [address], [address] [place] [address]- You Need to Schedule the Following Appointments Follow Up with MARQUIS LOUISE MD, URL When: Where: Medications What How Much When Why Instructions Unchanged acetaminophen-hydrocod one (Goldvein 325 mg-5 mg oral tablet) 1 Tablets [...] or co (more content not included)... Normal [facility] Urology Office/Clinic Noteon 11-02-2024 Urology Office/Clinic Note Urology Office/Clinic Note Chief Complaint er f/u HPI Staff 84 year old male here for [facility] ER F/U, difficulty urinating. Bladder scan showed [...] with voice recognition artificial intelligence software, specifically [employer], [employer] and or [employer]. Substitutions may have occurred due to the [...] out of his penis. Pt presented to [facility] ER 10/28/24 due to clot retention. Seen [...] 6. 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) Pt presented to [facility] ER 08/06/24 with redness on [...] penis. -Cont symptomatic monitoring 7. Anticoagulated (Z79.01: detention (current) use of anticoagulants) Taking Eliquis, has restarted since UroLift. Hx of cardioversion. Increased risk for bleeding. Elevated risk for periop complications. Patient underwent a UroLift procedure approximately a week and a half ago. Unfortunately, he developed gross hematuria with clot retention that required hand irrigation with a three-way Palomares catheter. He presents today for an (more content not included)... Normal [facility] Comment on above: Result Comment: Elec tronically [...] Is Your Medications List NIFEdipine acetaminophen-hydrocod one (Goldvein 325 mg-5 mg oral tablet) acyclovir apixaban [...] MARQUIS LOUISE MD Where: [facility] of [address], [address] [place] [address]- Medications What How Much When Why Instructions Unchanged acetaminophen-hydrocod one (Goldvein 325 mg-5 mg oral tablet) 1 Tablets [...] emptying Naus (more content not included)... Normal [facility] Inpatient Patient Summaryon 10-23-2024 Inpatient Patient Summary Inpatient Patient Summary [address] [address] Clinical Summary Person Information Name: NADIR BETH Age: 84 Years : 1940 Sex: Male PCP: Van Youssef MD Marital Status: Race: White Ethnicity: Non- or Language: Jamaican Visit Id: Visit Reason: BPH WITH URINARY OBSTRUCTION, INCOMPLETE BLADDER EMPTYING Speciality: Acuity: Enc Type: Outpatient Med Service: Surgery Arrival: 10/23/2024 13:48:15 Discharge: Dispo Type: Address: [address] [place] [address] [phone] Provider Notes: Diagnosis: Problems Active BPH with [...] This Visit Final Med List: acetaminophen-hydrocod one (Goldvein 325 mg-5 mg oral tablet) 1 Tablets [...] Patient Education Information: Benign Prostatic Hyperplasia Normal [facility] Main OR Intraoperative Recor don 10-23-2024 Main OR Intraoperative Record Main OR Intraoperative Record IntraOp Document Type FTURO Summary Primary Physician: MARQUIS LOUISE MD Finalized Date/Time: 10/23/24 15:03:19 Pt. Name: NADIR BETH Joy Borja/Sex: 1940 Male Med Rec #: [id number] Physician: MARQUIS LOUISE MD Financial #: [id number] Pt. Type: O Room/Bed: / Admit/Disch: 10/23/24 [...] 3 Case Attendee ADRIAN GUSTAFSON, Oliva Goel FINANCE PROFESSOR, Ana CHO Role Performed Surgeon - Primary Senior Software Qa Analyst - Primary Scrub - Primary Time [...] Implant Implant Identification Description UROLIFT Lot Number [id number] Baby Sitter UROLIFT Catalog ???# UL2-C Expiration Date 11/30/25 [...] Oliva Goel (more content not included)... Normal [facility] Main OR Preoperative Recordo n 10-23-2024 Main OR Preoperative Record Main OR Preoperative Record Holding Area Document Type FTURO Summary Primary Physician: MARQUIS LOUISE MD Finalized Date/Time: 10/23/24 14:17:30 Pt. Name: NADIR BETH/Sex: 1940 Male Med Rec #: [id number] Physician: MARQUIS LOUISE MD Financial #: [id number] Pt. Type: O Room/Bed: / Admit/Disch: 10/23/24 [...] Complaints of Pain: No Skin Integrity Intact, Trent, Warm, & Dry Vitals - EU Blood Pressure 152/78 Pulse 84 bpm Respirations 18 br/min SPO2 90 % Additional None RN Reviewed Yes Specimens Collected Last Modified By: Oliva Goel 10/23/24 14:17:29 Finalized By: Oliva Goel Document Signatures Signed By: Preeti Kaur LPN 10/23/24 14:05 Oliva Goel 10/23/24 14:17 Normal [facility] Operative Reporton 4 Operative Report Operative Report Patient: NADIR BETH Age: 84 years Sex: Male : 1940 Associated Diagnoses: None Author: ADRIAN GUSTAFSON, MARQUIS Procedure SURGEON: Marquis Louise MD PREOPERATIVE DIAGNOSIS: [...] urethral meatus. We then placed the 20 Martiniquais cystoscope into the bladder. Bilobar hyperplasia was [...] able to easily navigate with a 20 Martiniquais scope. Scope was then removed and an 18 Martiniquais Palomares catheter was placed with return of light pink urine and no clots noted. This concluded the procedure. Patient was then transferred to PACU in stable condition. PLAN: Patient will follow-up in 2 days for Palomares catheter removal. 10 cc in the balloon Follow-up in 6 to 8 weeks with IPSS at that time Normal [facility] Comment on above: Result Comment: Elec tronically Signed By: MARQUIS LOUISE MD\.br\Date and Time Signed: 10/23/24 15:06 EST Outpatient Surgery Discharge Instructionon 10-23-2024 Outpatient Surgery Discharge Instruction Outpatient Surgery Discharge Instruction [place] [id number] Patient Discharge Instructions PERSON INFORMATION Name: NADIR [...] amount of (more content not included)... Normal [facility] Ambulatory Visit Summaryon 1 12-02-2023 Ambulatory Visit [...] Survey Yo (more content not included)... Normal [facility] Ambulatory Visit Summary Ambulatory Visit Summary NADIR [...] us for (more content not included)... Normal [facility] Urology Office/Clinic Noteon 10-02-2024 Urology Office/Clinic Note [...] with voice recognition artificial intelligence software, specifically [employer], [employer] and or [employer]. Substitutions may have occurred due to the [...] -Cipro 500mg bid start the day prior, Goldvein 325-5mg #2 q6hrs as needed for pain, [...] 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) Pt presented to [facility] ER 08/06/24 with redness on [...] and Lasix. -Dm control 6. Anticoagulated (Z79.01: detention (current) use of anticoagulants) Taking Eliquis. Hx of cardioversion. Elevated risk for periop complications. Based on patient's age, multiple medical comorbidities and his prostate size we discussed extensively that he will benefit most likely from a UroLift procedure. He is amenable to (more content not included)... Normal [facility] Comment on above: Result Comment: Elec tronically Signed By: MARQUIS LOUISE MD\.br\Date and Time Signed: 10/02/24 11:43 EST\.br\Electronically Co-Signed By: Roxy Gatica\.br\Date and Time Co-Signed: 10/02/24 11:21 EST\.br\Electronically Co-Signed By: Roxy Gatica\.br\Date and Time Co-Signed: 10/02/24 11:22 EST\.br\Electronically Co-Signed By: Roxy Gatica\.br\Date and Time Co-Signed: 10/02/24 11:23 EST Inpatient Patient Summaryon 09-25-2024 Inpatient Patient Summary Inpatient Patient Summary [address] [address] Clinical Summary Person Information Name: NADIR BETH Age: 84 Years : 1940 Sex: Male PCP: Van Youssef MD Marital Status: Race: White Ethnicity: Non- or Language: Jamaican Visit Id: Visit Reason: ENLARGED PROSTATE WITH URINARY OBSTRUCTION, INCOMPLETE BLADDER EMPTYING Speciality: Acuity: Enc Type: Outpatient Med Service: Surgery Arrival: 09/25/2024 11:42:27 Discharge: Dispo Type: Address: [address] [place] [address] [phone] Provider Notes: Diagnosis: Problems Active BPH with [...] Follow up: With: Address: When: MARQUIS LOUISE [address] [place] [address] [phone] Business (1) Comments: Follow-up in the office in 2 weeks to discuss next plan With: Address: When: MARQUIS LOUISE [address] [place] [address] [phone] Business (1) Patient Education Information: Benign Prostatic Hyperplasia Normal [facility] Main OR Intraoperative Recor don 09-25-2024 Main OR Intraoperative Record Main OR Intraoperative Record IntraOp Document Type FTURO Summary Primary Physician: MARQUIS LOUISE MD Finalized Date/Time: 09/25/24 13:23:58 Pt. Name: SHAHBAZNADIR STEPHEN /Sex: 1940 Male Med Rec #: [id number] Physician: MARQUIS LOUISE MD Financial #: [id number] Pt. Type: O Room/Bed: / Admit/Disch: 09/25/24 [...] C KWABENA Role Performed Surgeon - Primary Senior Software Qa Analyst - Primary Scrub - Primary Time [...] Goel 09/25/24 13:23 Oliva Goel 09/25/24 13:23 [facility] Main OR Preoperative Recordo n 09-25-2024 Main OR Preoperative Record Main OR Preoperative Record Holding Area Document Type FTURO Summary Primary Physician: MARQUIS LOUISE MD Finalized Date/Time: 09/25/24 13:04:51 Pt. Name: KIRITNADIR/Sex: 1940 Male Med Rec #: [id number] Physician: MARQUIS LOUISE MD Financial #: [id number] Pt. Type: O Room/Bed: / Admit/Disch: 09/25/24 [...] Complaints of Pain: No Skin Integrity Intact, Trent, Warm, & Dry Vitals - EU Blood Pressure Pulse Respirations SPO2 Additional None RN Reviewed Yes Specimens Collected Last Modified By: Oliva Goel 09/25/24 13:04:50 Finalized By: Oliva Goel Document Signatures Signed By: Preeti Kaur LPN 09/25/24 12:49 Oliva Goel 09/25/24 13:04 Normal [facility] Operative Reporton Operative Report Operative Report Patient: [...] steps Impression and Plan Counseled: Family. Normal [facility] Comment on above: Result Comment: Elec tronically Signed By: MARQUIS LOUISE MD\.br\Date and Time Signed: 09/25/24 13:27 EST Outpatient Surgery Discharge Instructionon 09-25-2024 Outpatient Surgery Discharge Instruction Outpatient Surgery Discharge Instruction [address] [address] Patient Discharge Instructions PERSON INFORMATION [...] Address: When: MARQUIS LOUISE [address] [place] [address] [phone] Assured Labor (1) Comments: Follow-up in the office in 2 weeks to discuss next plan With: Address: When: MARQUIS LOUISE [address] [place] [address] [phone] [employer] (1) Comment: PATIENT EDUCATION INFORMATION Instructions: Benign [...] radio frequen (more content not included)... Normal [facility] No Panel Informationon 08-24 [facility] Ambulatory Visit Summaryon 0 [...] 525 mg (more content not included)... Normal [facility] Urology Office/Clinic Noteon 08-08-2024 Urology Office/Clinic Note Urology Office/Clinic Note Chief Complaint follow up to [facility] ER HPI Staff 84 year old male new patient follow up to [facility] 08/06/24 presented due to redness [...] 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) Pt presented to [facility] ER 08/06/24 with redness on [...] urinary channel, (more content not included)... Normal [facility] Comment on above: Result Comment: Elec tronically Signed By: MARQUIS LOUISE MD\.br\Date and Time Signed: 08/08/24 11:05 EDT\.br\Electronically Co-Signed By: Roxy Gatica.br\Date and Time Co-Signed: 08/08/24 10:46 EDT\.br\Electronically Co-Signed By: Roxy Gatica.mary\Date and Time Co-Signed: 08/08/24 10:53 EDT Office Visiton 07-05-2024 Follow-up visit [id number] Nadir Beth 1940 M Date Provider Department Center 07/05/2024 Salvador-SKAGWAY RUTHIE [facility] NEPHRO Comprehensiv Family History Problem Relation Age of Onset Coronary artery disease Father Family Status - Relation Status Age at Father Level of Service:49612 DE OFFICE/OUTPATIENT ESTABLISHED MOD MDM 30 MIN Reason for Visit and Comments: Follow-up [420693] [facility] 06-20-2024 36 Regarding echo resul [...] he should have another echo at [facility] in Oct 2024, prior to his follow up with Dr. Cisneros in Nov 2024. She verbalized understanding. Echo order faxed to [facility]. [facility] 06-14-2024 36 Patients called and stating that dr. Linda told her to call and let him know that her husbands blood pressure is better and she would like a call back. [facility] 06-09-2024 36 Spoke with patient's Kervin and made sure she understood to increase labetalol per Dr. Linda. She also understands not to resume hydralazine. [facility] 06-07-2024 36 I'm Stephanie from Dr. Cisneros's office with Cardiology. Patient's daughter called and wanted to know if Dr. Linda had restarted patient's hydralazine- NOT hydroxyzine. I don't see in the note that it was restarted. Dr. Linda, or someone from his office- can you clarify this for me? Thanks so much. [facility] Follow-Upon 06-07-2024 Follow-Up [id number] Nadir Beth 1940 M Date Provider Department Center 06/07/2024 Salvador-RUTHIE LINDA [facility] NEPHRO Comprehensiv Family History Problem Relation Age of Onset Coronary artery disease Father Family Status - Relation Status Age at Father Level of Service:50671 DE OFFICE/OUTPATIENT ESTABLISHED MOD MDM 30 MIN () Reason for Visit and Comments: Follow-up [216974] [facility] Telephoneon 06-07-2024 Telephone [id number] Nadir Beth 1940 M Date Provider Department Center 06/07/2024 Francisco-IRIS GUADALUPE [facility] NEPHRO Comprehensiv Family History Problem Relation Age of Onset Coronary artery disease Father Family Status - Relation Status Age at Father [facility] Office Visiton 06-05-2024 Follow-up visit [id number] Steen 1940 M Date Provider Department Center 06/05/2024 Parris-CLARIBEL CISNEROS [facility] Family History Problem Relation Age of Onset Coronary artery disease Father Family Status - Relation Status Age at Father Level of Service:74726 DE OFFICE/OUTPATIENT ESTABLISHED MOD MDM 30 MIN [facility] 05-17-2024 36 Faxed lab orders 05/17/24 [facility] 05-15-2024 36 Patient states that he needs his blood work to go to [facility] before his appointment on 05/31/24. [facility] 05-10-2024 36 LM on for patient or his to return my call. [facility] 05-08-2024 36 Patient's bucio louise with concerns of elevated BP since hydralazine was stopped at last apt. She said sometimes it's very good - 110/60's and sometimes 152/70. He's scheduled to see you in a few weeks. Did you want to change anything? Please advise. Thanks. Normal [facility] MICRO OTHER TESTSOrdered By: Francisco Bolanos on 04-15-2023 Fecal WBC Lactoferrin Negative (04/15/23 7:00 AM) Normal Negative [facility] [place] CHEMISTRYOrdered By: SYSTEM SYSTEM on [...] 3.3 g/dL Critically low 3.4-5.0 Th e [facility] Comment on above: Performed By: #### M ERICK Faith PHOS #### [facility] [address] [address] [address] David Magana GLYCOHEMOGLOBIN A1Con 2022 ADA RECOMMENDATION SEE BELOW Normal [facility] Comment on above: Result Comment: ADA RECOMMENDED LIMIT 4.0 - 6.0 ADA THERAPEUTIC TARGET < 7.0 ACTION SUGGESTED > 7.0 Performed By: #### A 1C #### [facility] [address] [address] [address] David Magana Glucose [Mass/Vol] 108 mg/dL Normal [facility] Comment on above: Performed By: #### A 1C #### [facility] [address] [place] [address] Dr. David Magana HbA1c (Bld) [Mass fraction] 5.4 % Normal 4.5-6.2 [facility] Comment on above: Performed By: #### A 1C #### [facility] [address] [place] [address] Dr. David Magana PHOSPHORUSon 03-24-2023 Phosphate [Mass/Vol] 3.6 mg/dL Normal 2.6-4.7 [facility] Comment on above: Performed By: #### M Marcell BMP, PHOS #### [facility] [address] [place] [address] Dr. David Magana PROF CHEM 8 (BAS METB)on Anion gap [Moles/Vol] 11.6 mmol/L Normal [facility] Comment on above: Performed By: #### M Marcell BMP, PHOS #### [facility] [address] [place] [address] Dr. David Magana Calcium [Mass/Vol] 8.9 mg/dL Normal 8.5-10.1 [facility] Comment on above: Performed By: #### M Marcell BMP, PHOS #### [facility] [address] [place] [address] Dr. David Magana Chloride [Moles/Vol] 107 mmol/L Normal 98-107 [facility] Comment on above: Performed By: #### M Marcell BMP, PHOS #### [facility] [address] [place] [address] Dr. David Magana CO2 [Moles/Vol] 30.8 mmol/L Normal 21.0-32.0 [facility] Comment on above: Performed By: #### M Marcell, BMP, PHOS #### [facility] [address] [place] [address] Dr. David Magana Creatinine [Mass/Vol] 1.67 mg/dL Critically high 0.70-1.30 [facility] Comment on above: Performed By: #### M Marcell BMP, PHOS #### [facility] [address] [place] [address] Dr. David Magana EGFR-AF [place] 48 mL/min/1.73m2 Critically low >=60 [facility] Comment on above: Performed By: #### M Marcell, BMP, PHOS #### [facility] [address] [address] [address] David Magana EGFR-NON AF [place] 39 mL/min/1.73m2 Critically low >=60 [facility] Comment on above: Performed By: #### M ERICK Faith, PHOS #### [facility] [address] [address] [address] David Magana Glucose [Mass/Vol] 128 mg/dL Critically high 74-106 [facility] Comment on above: Performed By: #### M Marcell, BMP, PHOS #### [facility] [address] [address] [address] David Magana Potassium [Moles/Vol] 4.4 mmol/L Normal 3.5-5.1 [facility] Comment on above: Performed By: #### M Marcell BMP, PHOS #### [facility] [address] [place] [address] Dr. David Magana Sodium [Moles/Vol] 145 mmol/L Normal 136-145 [facility] Comment on above: Performed By: #### M Marcell BMP, PHOS #### [facility] [address] [address] [address] David Magana Urea nitrogen [Mass/Vol] 25.0 mg/dL Critically high 7.0-18.0 [facility] Comment on above: Performed By: #### ERICK Jacques, PHOS #### [facility] [address] [address] [address] David Magana Urea nitrogen/Creatinine [Mass ratio] 15.0 mg/mg Normal [facility] Comment on above: Performed By: #### M Marcell, BMP, PHOS #### [facility] [address] [address] [address] David Magana VITAMIN D 25 OHon 03-24-2023 VIT D 25-OH 11.6 ng/mL Normal [facility] Comment on above: Performed By: #### C BC #### [facility] [address] [place] [address] Dr. David Magana VIT D RANGES SEE BELOW Normal [facility] Comment on above: Result Comment: <20 ng/mL Vit D deficient 20 - <30 ng/mL Vit D insufficient 30 - 100 ng/mL Vit D sufficient >100 ng/mL Potential Toxicity Performed By: #### C BC #### [facility] [address] [place] [address] Dr. David Magana CBC AUTO DIFFon 02-27-2023 BASO # 0.0 103/ul Normal 0.0-0.1 [facility] Comment on above: Performed By: #### M ERICK Faith, PHOS #### [facility] [address] [place] [address] Dr. David Magana Basophils/100 WBC (Bld) 0.5 % Normal 0.2-2.0 [facility] Comment on above: Performed By: #### M ERICK Faith, PHOS #### [facility] [address] [place] [address] Dr. David Magana EO # 0.7 103/ul Normal 0.0-0.7 [facility] Comment on above: Performed By: #### M ERICK Faith, PHOS #### [facility] [address] [place] [address] Dr. David Magana Eosinophils/100 WBC (Bld) 9.3 % Critically high 0.9-7.0 [facility] Comment on above: Performed By: #### M ERICK Faith, PHOS #### [facility] [address] [place] [address] Dr. David Magana Erythrocyte distribution width (RBC) [Ratio] 14.6 % Normal 11.0-15.0 [facility] Comment on above: Performed By: #### M ERICK Faith, PHOS #### [facility] [address] [place] [address] Dr. David Magana Hematocrit (Bld) [Volume fraction] 41.5 % Critically low 42.0-54.0 [facility] Comment on above: Performed By: #### M ERICK Faith, PHOS #### [facility] [address] [place] [address] Dr. David Magana Hemoglobin (Bld) [Mass/Vol] 13.9 g/dL Critically low 14.0-18.0 [facility] Comment on above: Performed By: #### M ERICK Faith, PHOS #### [facility] [address] [place] [address] Dr. David Magana IG # 0.02 10e3/ul Normal 0.00-0.03 [facility] Comment on above: Performed By: #### M Marcell BMP, PHOS #### [facility] [address] [place] [address] Dr. David Magana IG % 0.3 % Normal 0.0-0.5 [facility] Comment on above: Performed By: #### ERICK Jacques, PHOS #### [facility] [address] [place] [address] Dr. David Magana LYMPH # 1.0 103/ul Critically low 1.2-3.8 [facility] Comment on above: Performed By: #### ERICK Jacques, PHOS #### [facility] [address] [place] [address] Dr. David Magana Lymphocytes/100 WBC (Bld) 13.0 % Critically low 20.5-60.0 [facility] Comment on above: Performed By: #### ERICK Jacques, PHOS #### [facility] [address] [place] [address] Dr. David Magana MANUAL DIFF REQ NO Normal [facility] Comment on above: Performed By: #### M ERICK Faith, PHOS #### [facility] [address] [place] [address] Dr. David Magana MCH (RBC) [Entitic mass] 33.5 pg Normal 25.9-34.0 [facility] Comment on above: Performed By: #### M ERICK Faith, PHOS #### [facility] [address] [place] [address] Dr. David Magana MCHC (RBC) [Mass/Vol] 33.5 g/dL Normal 29.9-35.2 [facility] Comment on above: Performed By: #### ERICK Jacques, PHOS #### [facility] [address] [place], [place] [id number] Dr. David Magana MCV (RBC) [Entitic vol] 100.0 fL Critically high 80.0-94.0 [facility] Comment on above: Performed By: #### M ERICK Faith, PHOS #### [facility] [address] [place] [address] Dr. David Magana MONO # 0.8 103/ul Normal 0.3-0.8 [facility] Comment on above: Performed By: #### M ERICK Faith, PHOS #### [facility] [address] [place] [address] Dr. David Magana Monocytes/100 WBC (Bld) 10.1 % Normal 1.7-12.0 [facility] Comment on above: Performed By: #### M ERICK Faith, PHOS #### [facility] [address] [place] [address] Dr. David Magana NEUT # 5.0 103/ul Normal 1.4-6.5 [facility] Comment on above: Performed By: #### M ERICK Faith, PHOS #### [facility] [address] [place] [address] Dr. David Magana Neutrophils/100 WBC (Bld) 66.8 % Normal 43.0-75.0 [facility] Comment on above: Performed By: #### M ERICK Faith, PHOS #### [facility] [address] [place] [address] Dr. David Magana Platelet mean volume (Bld) [Entitic vol] 11.2 fL Normal 9.5-13.5 [facility] Comment on above: Performed By: #### M ERICK Faith, PHOS #### [facility] [address] [place] [address] Dr. David Magana PLT 187 103/ul Normal 150-450 [facility] Comment on above: Performed By: #### M Marcell BMP, PHOS #### [facility] [address] [place] [address] Dr. David Magana RBC 4.15 106/ul Critically low 4.70-6.10 [facility] Comment on above: Performed By: #### M ERICK Faith, PHOS #### [facility] [address] [place] [address] Dr. David Magana WBC 7.5 103/ul Normal 4.0-11.0 [facility] Comment on above: Performed By: #### M ERICK Faith, PHOS #### [facility] [address] [place] [address] Dr. David Magana PROF 14(COMP METB)on 023 Albumin [Mass/Vol] 3.5 g/dL Normal 3.4-5.0 [facility] Comment on above: Performed By: #### A 1C #### [facility] [address] [place] [address] Dr. David Magana Albumin/Globulin [Mass ratio] 1.1 {ratio} Normal [facility] Comment on above: Performed By: #### A 1C #### [facility] [address] [place] [address] Dr. David Magana ALP [Catalytic activity/Vol] 76 U/L Normal 46-116 [facility] Comment on above: Performed By: #### A 1C #### [facility] [address] [place] [address] Dr. David Magana ALT [Catalytic activity/Vol] 23 U/L Normal 16-63 [facility] Comment on above: Performed By: #### A 1C #### [facility] [address] [place] [address] Dr. David Magana Anion gap [Moles/Vol] 13.1 mmol/L Normal [facility] Comment on above: Performed By: #### A 1C #### [facility] [address] [place] [address] Dr. David Magana AST [Catalytic activity/Vol] 17 U/L Normal 15-37 [facility] Comment on above: Performed By: #### A 1C #### [facility] [address] [place] [address] Dr. David Magana Bilirubin [Mass/Vol] 0.7 mg/dL Normal 0.2-1.0 [facility] Comment on above: Performed By: #### A 1C #### [facility] [address] [address] [address] David Magana Calcium [Mass/Vol] 9.0 mg/dL Normal 8.5-10.1 [facility] Comment on above: Performed By: #### A 1C #### [facility] [address] [address] [address] David Magana Chloride [Moles/Vol] 105 mmol/L Normal 98-107 [facility] Comment on above: Performed By: #### A 1C #### [facility] [address] [address] [address] David Magana CO2 [Moles/Vol] 29.0 mmol/L Normal 21.0-32.0 [facility] Comment on above: Performed By: #### A 1C #### [facility] [address] [place] [address] Dr. David Magana Creatinine [Mass/Vol] 1.77 mg/dL Critically high 0.70-1.30 [facility] Comment on above: Performed By: #### A 1C #### [facility] [address] [address] [address] David Magana EGFR-AF COSTA RICAN 45 mL/min/1.73m2 Critically low >=60 [facility] Comment on above: Performed By: #### A 1C #### [facility] [address] [address] [address] David Magana EGFR-NON AF COSTA RICAN 37 mL/min/1.73m2 Critically low >=60 [facility] Comment on above: Performed By: #### A 1C #### [facility] [address] [address] [address] David Magana Globulin (S) [Mass/Vol] 3.3 g/dL Normal [facility] Comment on above: Performed By: #### A 1C #### [facility] [address] [address] [address] David Magana Glucose [Mass/Vol] 135 mg/dL Critically high 74-106 [facility] Comment on above: Performed By: #### A 1C #### [facility] [address] [address] [address] David Magana Potassium [Moles/Vol] 4.1 mmol/L Normal 3.5-5.1 [facility] Comment on above: Performed By: #### A 1C #### [facility] [address] [address] [address] David Magana Protein [Mass/Vol] 6.8 g/dL Normal 6.4-8.2 [facility] Comment on above: Performed By: #### A 1C #### [facility] [address] [address] [address] David Magana Sodium [Moles/Vol] 143 mmol/L Normal 136-145 [facility] Comment on above: Performed By: #### A 1C #### [facility] [address] [address] [address] David Magana Urea nitrogen [Mass/Vol] 31.0 mg/dL Critically high 7.0-18.0 [facility] Comment on above: Performed By: #### A 1C #### [facility] [address] [address] [address] David Magana Urea nitrogen/Creatinine [Mass ratio] 17.5 mg/mg Normal [facility] Comment on above: Performed By: #### A 1C #### [facility] [address] [address] [address] David Magana PROTIMEon 02-27-2023 INR Coag (PPP) [Relative time] 0.99 {INR} Normal [facility] Comment on above: Performed By: #### A 1C #### [facility] [address] [address] [address] David Magana INR GUIDELINES SEE BELOW Normal [facility] Comment on above: Result Comment: IDANIA RED INR: 2.0 - 3.0 CONDITIONS NOT LISTED BELOW 2.5 - 3.5 FOR PROSTHETIC HEART VALVE REPLACEMENT 2.5 - 3.5 RECURRENT THROMBOSIS Performed By: #### A 1C #### [facility] [address] [address] [address] David Magana PT Coag (PPP) [Time] 10.5 s Normal 9.0-11.6 [facility] Comment on above: Performed By: #### A 1C #### [facility] [address] [address] [address] David Magana PTTon 02-27-2023 aPTT Coag (Bld) [Time] 33.0 s Normal 22.3-36.2 [facility] Comment on above: Performed By: #### P OCGLUC #### [facility] [address] [address] [address] David Magana ALBUMINon 12-28-2022 Albumin [Mass/Vol] 3.6 g/dL Normal 3.4-5.0 [facility] Comment on above: Performed By: #### C BC #### [facility] [address] [place] [address] Dr. David Magana GLYCOHEMOGLOBIN A1Con 2022 ADA RECOMMENDATION SEE BELOW Normal [facility] Comment on above: Result Comment: ADA RECOMMENDED LIMIT 4.0 - 6.0 ADA THERAPEUTIC TARGET < 7.0 ACTION SUGGESTED > 7.0 Performed By: #### P OCGLUC #### [facility] [address] [address] [address] David Magana Glucose [Mass/Vol] 140 mg/dL Normal [facility] Comment on above: Performed By: #### P OCGLUC #### [facility] [address] [place] [address] Dr. David Magana HbA1c (Bld) [Mass fraction] 6.5 % Critically high 4.5-6.2 [facility] Comment on above: Performed By: #### P OCGLUC #### [facility] [address] [address] [address] David Magana MAGNESIUMon 12-28-2022 Magnesium [Mass/Vol] 2.3 mg/dL Normal 1.8-2.4 [facility] Comment on above: Performed By: #### P OCGLUC #### [facility] [address] [place] [address] Dr. David Magana PROF CHEM 8 (BAS METB)on Anion gap [Moles/Vol] 13.2 mmol/L Normal [facility] Comment on above: Performed By: #### P OCGLUC #### [facility] [address] [address] [address] David Magana Calcium [Mass/Vol] 9.0 mg/dL Normal 8.5-10.1 [facility] Comment on above: Performed By: #### P OCGLUC #### [facility] [address] [address] [address] David Magana Chloride [Moles/Vol] 105 mmol/L Normal 98-107 [facility] Comment on above: Performed By: #### P OCGLUC #### [facility] [address] [address] [address] David Magana CO2 [Moles/Vol] 28.9 mmol/L Normal 21.0-32.0 [facility] Comment on above: Performed By: #### P OCGLUC #### [facility] [address] [address] [address] David Magana Creatinine [Mass/Vol] 1.66 mg/dL Critically high 0.70-1.30 [facility] Comment on above: Performed By: #### P OCGLUC #### [facility] [address] [place] [address] Dr. David Magana EGFR-AF COSTA RICAN 48 mL/min/1.73m2 Critically low >=60 [facility] Comment on above: Performed By: #### P OCGLUC #### [facility] [address] [address] [address] David Magana EGFR-NON AF COSTA RICAN 40 mL/min/1.73m2 Critically low >=60 [facility] Comment on above: Performed By: #### P OCGLUC #### [facility] [address] [place] [address] Dr. David Magana Glucose [Mass/Vol] 123 mg/dL Critically high 74-106 [facility] Comment on above: Performed By: #### P OCGLUC #### [facility] [address] [place] [address] Dr. David Magana Potassium [Moles/Vol] 4.1 mmol/L Normal 3.5-5.1 [facility] Comment on above: Performed By: #### P OCGLUC #### [facility] [address] [address] [address] David Magana Sodium [Moles/Vol] 143 mmol/L Normal 136-145 [facility] Comment on above: Performed By: #### P OCGLUC #### [facility] [address] [address] [address] David Magana Urea nitrogen [Mass/Vol] 29.0 mg/dL Critically high 7.0-18.0 [facility] Comment on above: Performed By: #### P OCGLUC #### [facility] [address] [place] [address] Dr. David Magana Urea nitrogen/Creatinine [Mass ratio] 17.5 mg/mg Normal [facility] Comment on above: Performed By: #### P OCGLUC #### [facility] [address] [place] [address] Dr. David Magana URINE T PROTEIN CREAT RATIOo n 12-28-2022 UR TOTAL PROTEIN <6.0 Normal <=12.0 [facility] Comment on above: Performed By: #### M ERICK Faith, PHOS #### [facility] [address] [place] [address] Dr. David Magana URINE CREAT 41.21 mg/dL Normal 20.00-300.00 [facility] Comment on above: Performed By: #### M Marcell BMP, PHOS #### [facility] [address] [place] [address] Dr. David Magana ALBUMINon 11-16-2022 Albumin [Mass/Vol] 3.3 g/dL Critically low 3.4-5.0 [facility] Comment on above: Performed By: #### C BC #### [facility] [address] [place] [address] Dr. David Magana CREATININE URINEon URINE CREAT 19.69 mg/dL Critically low 20.00-300.00 [facility] Comment on above: Performed By: #### M ERICK Faith, PHOS #### [facility] [address] [place] [address] Dr. David Magana HEMOGLOBINon 11-16-2022 Hemoglobin (Bld) [Mass/Vol] 14.9 g/dL Normal 14.0-18.0 [facility] Comment on above: Performed By: #### M ERICK Faith, PHOS #### [facility] [address] [place] [address] Dr. David Magana MAGNESIUMon 11-16-2022 Magnesium [Mass/Vol] 2.2 mg/dL Normal 1.8-2.4 [facility] Comment on above: Performed By: #### C BC #### [facility] [address] [place] [address] Dr. David Magana PHOSPHORUSon 11-16-2022 Phosphate [Mass/Vol] 3.9 mg/dL Normal 2.6-4.7 [facility] Comment on above: Performed By: #### C BC #### [facility] [address] [place] [address] Dr. David Magana PROF CHEM 8 (BAS METB)on Anion gap [Moles/Vol] 11.9 mmol/L Normal [facility] Comment on above: Performed By: #### C BC #### [facility] [address] [place] [address] Dr. David Magana Calcium [Mass/Vol] 8.8 mg/dL Normal 8.5-10.1 [facility] Comment on above: Performed By: #### C BC #### [facility] [address] [place] [address] Dr. David Magana Chloride [Moles/Vol] 104 mmol/L Normal 98-107 [facility] Comment on above: Performed By: #### C BC #### [facility] [address] [place] [address] Dr. David Magana CO2 [Moles/Vol] 27.4 mmol/L Normal 21.0-32.0 [facility] Comment on above: Performed By: #### C BC #### [facility] [address] [address] [address] David Magana Creatinine [Mass/Vol] 1.68 mg/dL Critically high 0.70-1.30 [facility] Comment on above: Performed By: #### C BC #### [facility] [address] [address] [address] David Magana EGFR-AF COSTA RICAN 48 mL/min/1.73m2 Critically low >=60 [facility] Comment on above: Performed By: #### C BC #### [facility] [address] [address] [address] David Magana EGFR-NON AF COSTA RICAN 39 mL/min/1.73m2 Critically low >=60 [facility] Comment on above: Performed By: #### C BC #### [facility] [address] [address] [address] David Magana Glucose [Mass/Vol] 212 mg/dL Critically high 74-106 [facility] Comment on above: Performed By: #### C BC #### [facility] [address] [address] [address] David Magana Potassium [Moles/Vol] 4.3 mmol/L Normal 3.5-5.1 [facility] Comment on above: Performed By: #### C BC #### [facility] [address] [address] [address] David Magana Sodium [Moles/Vol] 139 mmol/L Normal 136-145 [facility] Comment on above: Performed By: #### C BC #### [facility] [address] [address] [address] David Magana Urea nitrogen [Mass/Vol] 25.0 mg/dL Critically high 7.0-18.0 [facility] Comment on above: Performed By: #### C BC #### [facility] [address] [address] [address] David Magana Urea nitrogen/Creatinine [Mass ratio] 14.9 mg/mg Normal [facility] Comment on above: Performed By: #### C BC #### [facility] [address] [place] [address] Dr. David Magana PROTEIN RAND URINEon 023 UR PROT <5.0 Normal <=11.9 [facility] Comment on above: Performed By: #### ERICK Jacques PHOS #### [facility] [address] [place] [address] Dr. David Magana US KARI DOP LEG [...] CLOVER PEREZ Date: 2022-11-02 16:21 Normal [facility] BNPon 07-22-2022 Natriuretic peptide B (Bld) [Mass/Vol] 2143.0 pg/mL Critically high <=1,800.0 [facility] Comment on above: Performed By: #### ERICK Jacques PHOS #### [facility] [address] [place] [address] Dr. David Magana CBC AUTO DIFFon 07-22-2022 BASO # 0.0 103/ul Normal 0.0-0.1 [facility] Comment on above: Performed By: #### A 1C #### [facility] [address] [place] [address] Dr. David Magana Basophils/100 WBC (Bld) 0.3 % Normal 0.2-2.0 [facility] Comment on above: Performed By: #### A 1C #### [facility] [address] [place] [address] Dr. David Magana EO # 0.3 103/ul Normal 0.0-0.7 [facility] Comment on above: Performed By: #### A 1C #### [facility] [address] [place] [address] Dr. David Magana Eosinophils/100 WBC (Bld) 2.4 % Normal 0.9-7.0 [facility] Comment on above: Performed By: #### A 1C #### [facility] [address] [place] [address] Dr. David Magana Erythrocyte distribution width (RBC) [Ratio] 13.4 % Normal 11.0-15.0 [facility] Comment on above: Performed By: #### A 1C #### [facility] [address] [place] [address] Dr. David Magana Hematocrit (Bld) [Volume fraction] 42.7 % Normal 42.0-54.0 [facility] Comment on above: Performed By: #### A 1C #### [facility] [address] [place] [address] Dr. David Magana Hemoglobin (Bld) [Mass/Vol] 14.2 g/dL Normal 14.0-18.0 [facility] Comment on above: Performed By: #### A 1C #### [facility] [address] [place] [address] Dr. David Magana IG # 0.18 10e3/ul Critically high 0.00-0.[address] [facility] Comment on above: Performed By: #### A 1C #### [facility] [address] [place] [address] Dr. David Magana IG % 1.6 % Critically high 0.0-0.5 [facility] Comment on above: Performed By: #### A 1C #### [facility] [address] [place] [address] Dr. David Magana LYMPH # 0.9 103/ul Critically low 1.2-3.8 [facility] Comment on above: Performed By: #### A 1C #### [facility] [address] [place] [address] Dr. David Magana Lymphocytes/100 WBC (Bld) 8.1 % Critically low 20.5-60.0 [facility] Comment on above: Performed By: #### A 1C #### [facility] [address] [place] [address] Dr. David Magana MANUAL DIFF REQ NO Normal [facility] Comment on above: Performed By: #### A 1C #### [facility] [address] [place] [address] Dr. David Magana MCH (RBC) [Entitic mass] 33.3 pg Normal 25.9-34.0 [facility] Comment on above: Performed By: #### A 1C #### [facility] [address] [place] [address] Dr. David Magana MCHC (RBC) [Mass/Vol] 33.3 g/dL Normal 29.9-35.2 [facility] Comment on above: Performed By: #### A 1C #### [facility] [address] [place] [address] Dr. David Magana MCV (RBC) [Entitic vol] 100.2 fL Critically high 80.0-94.0 [facility] Comment on above: Performed By: #### A 1C #### [facility] [address] [place] [address] Dr. David Magana MONO # 1.2 103/ul Critically high 0.3-0.8 [facility] Comment on above: Performed By: #### A 1C #### [facility] [address] [place] [address] Dr. David Magana Monocytes/100 WBC (Bld) 10.5 % Normal 1.7-12.0 [facility] Comment on above: Performed By: #### A 1C #### [facility] [address] [place] [address] Dr. David Magana NEUT # 8.9 103/ul Critically high 1.4-6.5 [facility] Comment on above: Performed By: #### A 1C #### [facility] [address] [place] [address] Dr. David Magana Neutrophils/100 WBC (Bld) 77.1 % Critically high 43.0-75.0 [facility] Comment on above: Performed By: #### A 1C #### [facility] [address] [place] [address] Dr. David Magana Platelet mean volume (Bld) [Entitic vol] 11.3 fL Normal 9.5-13.5 [facility] Comment on above: Performed By: #### A 1C #### [facility] [address] [place] [address] Dr. David Magana PLT 175 103/ul Normal 150-450 [facility] Comment on above: Performed By: #### A 1C #### [facility] [address] [place] [address] Dr. David Magana RBC 4.26 106/ul Critically low 4.70-6.10 [facility] Comment on above: Performed By: #### A 1C #### [facility] [address] [place] [address] Dr. David Magana WBC 11.5 103/ul Critically high 4.0-11.0 [facility] Comment on above: Performed By: #### A 1C #### [facility] [address] [place] [address] Dr. David Magana PROF 14(COMP METB)on 022 Albumin [Mass/Vol] 2.6 g/dL Critically low 3.4-5.0 [facility] Comment on above: Performed By: #### ERICK Jacques PHOS #### [facility] [address] [place] [address] Dr. David Magana Albumin/Globulin [Mass ratio] 0.9 {ratio} Normal [facility] Comment on above: Performed By: #### ERICK Jacques, PHOS #### [facility] [address] [place] [address] Dr. David Magana ALP [Catalytic activity/Vol] 49 U/L Normal 46-116 [facility] Comment on above: Performed By: #### M ERICK Faith, PHOS #### [facility] [address] [place] [address] Dr. David Magana ALT [Catalytic activity/Vol] 25 U/L Normal 16-63 [facility] Comment on above: Performed By: #### ERICK Jacques, PHOS #### [facility] [address] [place] [address] Dr. David Magana Anion gap [Moles/Vol] 12.8 mmol/L Normal [facility] Comment on above: Performed By: #### M ERICK Faith, PHOS #### [facility] [address] [address] [address] David Magana AST [Catalytic activity/Vol] 9 U/L Critically low 15-37 [facility] Comment on above: Performed By: #### ERICK Jacques, PHOS #### [facility] [address] [place] [address] Dr. David Magana Bilirubin [Mass/Vol] 0.5 mg/dL Normal 0.2-1.0 [facility] Comment on above: Performed By: #### ERICK Jacques, PHOS #### [facility] [address] [place] [address] Dr. David Magana Calcium [Mass/Vol] 8.3 mg/dL Critically low 8.5-10.1 [facility] Comment on above: Performed By: #### ERICK Jacques, PHOS #### [facility] [address] [place] [address] Dr. David Magana Chloride [Moles/Vol] 105 mmol/L Normal 98-107 [facility] Comment on above: Performed By: #### ERICK Jacques, PHOS #### [facility] [address] [place] [address] Dr. David Magana CO2 [Moles/Vol] 24.2 mmol/L Normal 21.0-32.0 [facility] Comment on above: Performed By: #### ERICK Jacques, PHOS #### [facility] [address] [place] [address] Dr. David Magana Creatinine [Mass/Vol] 1.28 mg/dL Normal 0.70-1.30 [facility] Comment on above: Performed By: #### ERICK Jacques, PHOS #### [facility] [address] [place] [address] Dr. David Magana EGFR-AF COSTA RICAN >60 Normal >=60 [facility] Comment on above: Performed By: #### M G, BMP, PHOS #### [facility] [address] [address] [address] David Magana EGFR-NON AF COSTA RICAN 54 mL/min/1.73m2 Critically low >=60 [facility] Comment on above: Performed By: #### M G, BMP, PHOS #### [facility] [address] [address] [address] David Magana Globulin (S) [Mass/Vol] 2.9 g/dL Normal [facility] Comment on above: Performed By: #### M G, BMP, PHOS #### [facility] [address] [address] [address] David Magana Glucose [Mass/Vol] 205 mg/dL Critically high 74-106 [facility] Comment on above: Performed By: #### M G, BMP, PHOS #### [facility] [address] [address] [address] David Magana Potassium [Moles/Vol] 4.0 mmol/L Normal 3.5-5.1 [facility] Comment on above: Performed By: #### M G, BMP, PHOS #### [facility] [address] [address] [address] David Magana Protein [Mass/Vol] 5.5 g/dL Critically low 6.4-8.2 [facility] Comment on above: Performed By: #### M G, BMP, PHOS #### [facility] [address] [address] [address] David Magana Sodium [Moles/Vol] 138 mmol/L Normal 136-145 [facility] Comment on above: Performed By: #### M G, BMP, PHOS #### [facility] [address] [address] [address] David Magana Urea nitrogen [Mass/Vol] 36.0 mg/dL Critically high 7.0-18.0 [facility] Comment on above: Performed By: #### M G, BMP, PHOS #### [facility] [address] [address] [address] David Magana Urea nitrogen/Creatinine [Mass ratio] 28.1 mg/mg Normal [facility] Comment on above: Performed By: #### M G, BMP, PHOS #### [facility] [address] [place] [address] Dr. David Magana BNPon 07-21-2022 Natriuretic peptide B (Bld) [Mass/Vol] 3485.0 pg/mL Critically high <=1,800.0 [facility] Comment on above: Result Comment: repe ated Performed By: #### A 1C #### [facility] [address] [place] [address] Dr. David Magana CBC AUTO DIFFon 07-21-2022 BASO # 0.0 103/ul Normal 0.0-0.1 [facility] Comment on above: Performed By: #### C BC #### [facility] [address] [place] [address] Dr. David Magana Basophils/100 WBC (Bld) 0.3 % Normal 0.2-2.0 [facility] Comment on above: Performed By: #### C BC #### [facility] [address] [place] [address] Dr. David Magana EO # 0.2 103/ul Normal 0.0-0.7 [facility] Comment on above: Performed By: #### C BC #### [facility] [address] [place] [address] Dr. David Magana Eosinophils/100 WBC (Bld) 1.9 % Normal 0.9-7.0 [facility] Comment on above: Performed By: #### C BC #### [facility] [address] [place] [address] Dr. David Magana Erythrocyte distribution width (RBC) [Ratio] 13.4 % Normal 11.0-15.0 The [facility] Comment on above: Performed By: #### C BC #### [facility] [address] [place] [address] Dr. David Magana Hematocrit (Bld) [Volume fraction] 42.5 % Normal 42.0-54.0 [facility] Comment on above: Performed By: #### C BC #### [facility] [address] [address] [address] David Magana Hemoglobin (Bld) [Mass/Vol] 14.2 g/dL Normal 14.0-18.0 [facility] Comment on above: Performed By: #### C BC #### [facility] [address] [address] [address] David Magana IG # 0.22 10e3/ul Critically high 0.00-0.[address] [facility] Comment on above: Performed By: #### C BC #### [facility] [address] [address] [address] David Magana IG % 2.1 % Critically high 0.0-0.5 [facility] Comment on above: Performed By: #### C BC #### [facility] [address] [address] [address] David Magana LYMPH # 0.8 103/ul Critically low 1.2-3.8 [facility] Comment on above: Performed By: #### C BC #### [facility] [address] [address] [address] David Magana Lymphocytes/100 WBC (Bld) 7.7 % Critically low 20.5-60.0 [facility] Comment on above: Performed By: #### C BC #### [facility] [address] [address] [address] David Magana MANUAL DIFF REQ NO Normal [facility] Comment on above: Performed By: #### C BC #### [facility] [address] [address] [address] David Magana MCH (RBC) [Entitic mass] 33.0 pg Normal 25.9-34.0 [facility] Comment on above: Performed By: #### C BC #### [facility] [address] [address] [address] David Magana MCHC (RBC) [Mass/Vol] 33.4 g/dL Normal 29.9-35.2 [facility] Comment on above: Performed By: #### C BC #### [facility] [address] [id number] David Magana MCV (RBC) [Entitic vol] 98.8 fL Critically high 80.0-94.0 [facility] Comment on above: Performed By: #### C BC #### [facility] [address] [address] [address] David Magana MONO # 1.0 103/ul Critically high 0.3-0.8 [facility] Comment on above: Performed By: #### C BC #### [facility] [address] [address] [address] David Magana Monocytes/100 WBC (Bld) 9.7 % Normal 1.7-12.0 [facility] Comment on above: Performed By: #### C BC #### [facility] [address] [place] [address] Dr. David Magana NEUT # 8.1 103/ul Critically high 1.4-6.5 [facility] Comment on above: Performed By: #### C BC #### [facility] [address] [place] [address] Dr. David Magana Neutrophils/100 WBC (Bld) 78.3 % Critically high 43.0-75.0 [facility] Comment on above: Performed By: #### C BC #### [facility] [address] [place] [address] Dr. David Magana Platelet mean volume (Bld) [Entitic vol] 10.7 fL Normal 9.5-13.5 [facility] Comment on above: Performed By: #### C BC #### [facility] [address] [place] [address] Dr. David Magana PLT 177 103/ul Normal 150-450 [facility] Comment on above: Performed By: #### C BC #### [facility] [address] [place], [place] [id number] Dr. David Magana RBC 4.30 106/ul Critically low 4.70-6.10 [facility] Comment on above: Performed By: #### C BC #### [facility] [address] [place] [address] Dr. David Magana WBC 10.4 103/ul Normal 4.0-11.0 [facility] Comment on above: Performed By: #### C BC #### [facility] [address] [place] [address] Dr. David Magana PROF 14(COMP METB)on 022 Albumin [Mass/Vol] 2.6 g/dL Critically low 3.4-5.0 [facility] Comment on above: Performed By: #### A 1C #### [facility] [address] [place] [address] Dr. David Magana Albumin/Globulin [Mass ratio] 1.0 {ratio} Normal [facility] Comment on above: Performed By: #### A 1C #### [facility] [address] [place] [address] Dr. David Magana ALP [Catalytic activity/Vol] 50 U/L Normal 46-116 [facility] Comment on above: Performed By: #### A 1C #### [facility] [address] [place] [address] Dr. David Magana ALT [Catalytic activity/Vol] 28 U/L Normal 16-63 [facility] Comment on above: Performed By: #### A 1C #### [facility] [address] [place] [address] Dr. David Magana Anion gap [Moles/Vol] 11.4 mmol/L Normal [facility] Comment on above: Performed By: #### A 1C #### [facility] [address] [place] [address] Dr. David Magana AST [Catalytic activity/Vol] 13 U/L Critically low 15-37 [facility] Comment on above: Performed By: #### A 1C #### [facility] [address] [place] [address] Dr. David Magana Bilirubin [Mass/Vol] 0.4 mg/dL Normal 0.2-1.0 [facility] Comment on above: Performed By: #### A 1C #### [facility] [address] [place] [address] Dr. David Magana Calcium [Mass/Vol] 8.4 mg/dL Critically low 8.5-10.1 [facility] Comment on above: Performed By: #### A 1C #### [facility] [address] [place] [address] Dr. David Magana Chloride [Moles/Vol] 107 mmol/L Normal 98-107 [facility] Comment on above: Performed By: #### A 1C #### [facility] [address] [place] [address] Dr. David Magana CO2 [Moles/Vol] 24.6 mmol/L Normal 21.0-32.0 [facility] Comment on above: Performed By: #### A 1C #### [facility] [address] [place] [address] Dr. David Magana Creatinine [Mass/Vol] 1.26 mg/dL Normal 0.70-1.30 [facility] Comment on above: Performed By: #### A 1C #### [facility] [address] [place] [address] Dr. David Magana EGFR-AF COSTA RICAN >60 Normal >=60 [facility] Comment on above: Performed By: #### A 1C #### [facility] [address] [place] [address] Dr. David Magana EGFR-NON AF COSTA RICAN 55 mL/min/1.73m2 Critically low >=60 [facility] Comment on above: Performed By: #### A 1C #### [facility] [address] [place] [address] Dr. David Magana Globulin (S) [Mass/Vol] 2.7 g/dL Normal [facility] Comment on above: Performed By: #### A 1C #### [facility] [address] [place] [address] Dr. David Magana Glucose [Mass/Vol] 203 mg/dL Critically high 74-106 [facility] Comment on above: Performed By: #### A 1C #### [facility] [address] [place] [address] Dr. David Magana Potassium [Moles/Vol] 4.0 mmol/L Normal 3.5-5.1 [facility] Comment on above: Performed By: #### A 1C #### [facility] [address] [place] [address] Dr. David Magana Protein [Mass/Vol] 5.3 g/dL Critically low 6.4-8.2 [facility] Comment on above: Performed By: #### A 1C #### [facility] [address] [place] [address] Dr. David Magana Sodium [Moles/Vol] 139 mmol/L Normal 136-145 [facility] Comment on above: Performed By: #### A 1C #### [facility] [address] [place] [address] Dr. David Magana Urea nitrogen [Mass/Vol] 33.0 mg/dL Critically high 7.0-18.0 [facility] Comment on above: Performed By: #### A 1C #### [facility] [address] [place] [address] Dr. David Magana Urea nitrogen/Creatinine [Mass ratio] 26.2 mg/mg Normal [facility] Comment on above: Performed By: #### A 1C #### [facility] [address] [place] [address] Dr. David Magana BNPon 07-20-2022 Natriuretic peptide B (Bld) [Mass/Vol] 7478.0 pg/mL Critically high <=1,800.0 [facility] Comment on above: Performed By: #### A 1C #### [facility] [address] [place] [address] Dr. David Magana CBC AUTO DIFFon 07-20-2022 BASO # 0.1 103/ul Normal 0.0-0.1 [facility] Comment on above: Performed By: #### ERICK Jacques PHOS #### [facility] [address] [place] [address] Dr. David Magana Basophils/100 WBC (Bld) 0.8 % Normal 0.2-2.0 [facility] Comment on above: Performed By: #### ERICK Jacques PHOS #### [facility] [address] [place] [address] Dr. David Magana EO # 0.1 103/ul Normal 0.0-0.7 [facility] Comment on above: Performed By: #### M G, BMP, PHOS #### [facility] [address] [place] [address] Dr. David Magana Eosinophils/100 WBC (Bld) 0.6 % Critically low 0.9-7.0 [facility] Comment on above: Performed By: #### M G, BMP, PHOS #### [facility] [address] [place] [address] Dr. David Magana Erythrocyte distribution width (RBC) [Ratio] 13.4 % Normal 11.0-15.0 [facility] Comment on above: Performed By: #### M G, BMP, PHOS #### [facility] [address] [place] [address] Dr. David Magana Hematocrit (Bld) [Volume fraction] 43.2 % Normal 42.0-54.0 [facility] Comment on above: Performed By: #### M G, BMP, PHOS #### [facility] [address] [place] [address] Dr. David Magana Hemoglobin (Bld) [Mass/Vol] 14.2 g/dL Normal 14.0-18.0 [facility] Comment on above: Performed By: #### M G, BMP, PHOS #### [facility] [address] [place] [address] Dr. David Magana IG # 0.21 10e3/ul Critically high 0.00-0.[address] [facility] Comment on above: Performed By: #### M G, BMP, PHOS #### [facility] [address] [place] [address] Dr. David Magana IG % 2.0 % Critically high 0.0-0.5 [facility] Comment on above: Performed By: #### M G, BMP, PHOS #### [facility] [address] [place] [address] Dr. David Magana LYMPH # 0.8 103/ul Critically low 1.2-3.8 [facility] Comment on above: Performed By: #### ERICK Jacques, PHOS #### [facility] [address] [place] [address] Dr. David Magana Lymphocytes/100 WBC (Bld) 7.7 % Critically low 20.5-60.0 [facility] Comment on above: Performed By: #### ERICK Jacques, PHOS #### [facility] [address] [place] [address] Dr. David Magana MANUAL DIFF REQ NO Normal [facility] Comment on above: Performed By: #### ERICK Jacques, PHOS #### [facility] [address] [place] [address] Dr. David Magana MCH (RBC) [Entitic mass] 33.2 pg Normal 25.9-34.0 [facility] Comment on above: Performed By: #### ERICK Jacques, PHOS #### [facility] [address] [place] [address] Dr. David Magana MCHC (RBC) [Mass/Vol] 32.9 g/dL Normal 29.9-35.2 [facility] Comment on above: Performed By: #### ERICK Jacques, PHOS #### [facility] [address] [place] [address] Dr. David Magana MCV (RBC) [Entitic vol] 100.9 fL Critically high 80.0-94.0 [facility] Comment on above: Performed By: #### ERICK Jacques, PHOS #### [facility] [address] [place] [address] Dr. David Magana MONO # 1.0 103/ul Critically high 0.3-0.8 [facility] Comment on above: Performed By: #### ERICK Jacques, PHOS #### [facility] [address] [place] [address] Dr. David Magana Monocytes/100 WBC (Bld) 10.0 % Normal 1.7-12.0 [facility] Comment on above: Performed By: #### M G, BMP, PHOS #### [facility] [address] [address] [address] David Magana NEUT # 8.1 103/ul Critically high 1.4-6.5 [facility] Comment on above: Performed By: #### M G, BMP, PHOS #### [facility] [address] [address] [address] David Magana Neutrophils/100 WBC (Bld) 78.9 % Critically high 43.0-75.0 [facility] Comment on above: Performed By: #### M Marcell, BMP, PHOS #### [facility] [address] [address] [address] David Magana Platelet mean volume (Bld) [Entitic vol] 10.8 fL Normal 9.5-13.5 [facility] Comment on above: Performed By: #### M Marcell BMP, PHOS #### [facility] [address] [address] [address] David Magana PLT 172 103/ul Normal 150-450 [facility] Comment on above: Performed By: #### M ERICK Faith, PHOS #### [facility] [address] [address] [address] David Magana RBC 4.28 106/ul Critically low 4.70-6.10 [facility] Comment on above: Performed By: #### M Marcell BMP, PHOS #### [facility] [address] [address] [address] David Magana WBC 10.3 103/ul Normal 4.0-11.0 [facility] Comment on above: Performed By: #### M Marcell, BMP, PHOS #### [facility] [address] [place] [address] Dr. David Magana CULTURE URINEon 07-20-2022 CULTURE [...] F Trimethoprim/Sulfameth oxazole >=320 R F Normal [facility] Comment on above: Performed By: #### M G, BMP, PHOS #### [facility] [address] [place] [address] Dr. David Magana PROF 14(COMP METB)on 022 Albumin [Mass/Vol] 2.6 g/dL Critically low 3.4-5.0 [facility] Comment on above: Performed By: #### A 1C #### [facility] [address] [place] [address] Dr. David Magana Albumin/Globulin [Mass ratio] 0.9 {ratio} Normal [facility] Comment on above: Performed By: #### A 1C #### [facility] [address] [place] [address] Dr. David Magana ALP [Catalytic activity/Vol] 48 U/L Normal 46-116 [facility] Comment on above: Performed By: #### A 1C #### [facility] [address] [place] [address] Dr. David Magana ALT [Catalytic activity/Vol] 27 U/L Normal 16-63 [facility] Comment on above: Performed By: #### A 1C #### [facility] [address] [place] [address] Dr. David Magana Anion gap [Moles/Vol] 13.4 mmol/L Normal [facility] Comment on above: Performed By: #### A 1C #### [facility] [address] [place] [address] Dr. David Magana AST [Catalytic activity/Vol] 22 U/L Normal 15-37 [facility] Comment on above: Performed By: #### A 1C #### [facility] [address] [place] [address] Dr. David Magana Bilirubin [Mass/Vol] 0.5 mg/dL Normal 0.2-1.0 [facility] Comment on above: Performed By: #### A 1C #### [facility] [address] [address] [address] David Magana Calcium [Mass/Vol] 8.3 mg/dL Critically low 8.5-10.1 [facility] Comment on above: Performed By: #### A 1C #### [facility] [address] [address] [address] David Magana Chloride [Moles/Vol] 105 mmol/L Normal 98-107 [facility] Comment on above: Performed By: #### A 1C #### [facility] [address] [place] [address] Dr. David Magana CO2 [Moles/Vol] 21.0 mmol/L Normal 21.0-32.0 [facility] Comment on above: Performed By: #### A 1C #### [facility] [address] [place] [address] Dr. David Magana Creatinine [Mass/Vol] 1.38 mg/dL Critically high 0.70-1.30 [facility] Comment on above: Performed By: #### A 1C #### [facility] [address] [place] [address] Dr. David Magana EGFR-AF COSTA RICAN 60 mL/min/1.73m2 Normal >=60 [facility] Comment on above: Performed By: #### A 1C #### [facility] [address] [address] [address] David Magana EGFR-NON AF COSTA RICAN 49 mL/min/1.73m2 Critically low >=60 [facility] Comment on above: Performed By: #### A 1C #### [facility] [address] [place] [address] Dr. David Magana Globulin (S) [Mass/Vol] 2.8 g/dL Normal [facility] Comment on above: Performed By: #### A 1C #### [facility] [address] [place] [address] Dr. David Magana Glucose [Mass/Vol] 156 mg/dL Critically high 74-106 [facility] Comment on above: Performed By: #### A 1C #### [facility] [address] [place] [address] Dr. David Magana Potassium [Moles/Vol] 4.4 mmol/L Normal 3.5-5.1 [facility] Comment on above: Performed By: #### A 1C #### [facility] [address] [place] [address] Dr. David Magana Protein [Mass/Vol] 5.4 g/dL Critically low 6.4-8.2 Th [facility] Comment on above: Performed By: #### A 1C #### [facility] [address] [place] [address] Dr. David Magana Sodium [Moles/Vol] 135 mmol/L Critically low 136-145 Th [facility] Comment on above: Performed By: #### A 1C #### [facility] [address] [place] [address] Dr. David Magana Urea nitrogen [Mass/Vol] 40.0 mg/dL Critically high 7.0-18.0 [facility] Comment on above: Performed By: #### A 1C #### [facility] [address] [place] [address] Dr. David Magana Urea nitrogen/Creatinine [Mass ratio] 29.0 mg/mg Normal [facility] Comment on above: Performed By: #### A 1C #### [facility] [address] [place] [address] Dr. David Magana BNPon 07-19-2022 Natriuretic peptide B (Bld) [Mass/Vol] 50700.0 pg/mL Critically high <=1,800.0 [facility] Comment on above: Performed By: #### C VDTB #### [facility] [address] [place] [address] Dr. David Magana CBC AUTO DIFFon 07-19-2022 BASO # 0.0 103/ul Normal 0.0-0.1 [facility] Comment on above: Performed By: #### C BC #### [facility] [address] [address] [address] David Magana Basophils/100 WBC (Bld) 0.3 % Normal 0.2-2.0 [facility] Comment on above: Performed By: #### C BC #### [facility] [address] [place] [address] Dr. David Magana EO # 0.0 103/ul Normal 0.0-0.7 [facility] Comment on above: Performed By: #### C BC #### [facility] [address] [place] [address] Dr. David Magana Eosinophils/100 WBC (Bld) 0.2 % Critically low 0.9-7.0 [facility] Comment on above: Performed By: #### C BC #### [facility] [address] [place] [address] Dr. David Magana Erythrocyte distribution width (RBC) [Ratio] 13.4 % Normal 11.0-15.0 [facility] Comment on above: Performed By: #### C BC #### [facility] [address] [place] [address] Dr. David Magana Hematocrit (Bld) [Volume fraction] 43.4 % Normal 42.0-54.0 [facility] Comment on above: Performed By: #### C BC #### [facility] [address] [place] [address] Dr. David Magana Hemoglobin (Bld) [Mass/Vol] 14.6 g/dL Normal 14.0-18.0 [facility] Comment on above: Performed By: #### C BC #### [facility] [address] [place] [address] Dr. David Magana IG # 0.18 10e3/ul Critically high 0.00-0.03 [facility] Comment on above: Performed By: #### C BC #### [facility] [address] [place] [address] Dr. David Magana IG % 1.5 % Critically high 0.0-0.5 [facility] Comment on above: Performed By: #### C BC #### [facility] [address] [address] [address] David Magana LYMPH # 0.8 103/ul Critically low 1.2-3.8 [facility] Comment on above: Performed By: #### C BC #### [facility] [address] [place] [address] Dr. David Magana Lymphocytes/100 WBC (Bld) 6.6 % Critically low 20.5-60.0 [facility] Comment on above: Performed By: #### C BC #### [facility] [address] [place] [address] Dr. David Magana MANUAL DIFF REQ NO Normal [facility] Comment on above: Performed By: #### C BC #### [facility] [address] [place] [address] Dr. David Magana MCH (RBC) [Entitic mass] 33.7 pg Normal 25.9-34.0 [facility] Comment on above: Performed By: #### C BC #### [facility] [address] [place] [address] Dr. David Magana MCHC (RBC) [Mass/Vol] 33.6 g/dL Normal 29.9-35.2 [facility] Comment on above: Performed By: #### C BC #### [facility] [address] [place] [address] Dr. David Magana MCV (RBC) [Entitic vol] 100.2 fL Critically high 80.0-94.0 [facility] Comment on above: Performed By: #### C BC #### [facility] [address] [place] [address] Dr. David Magana MONO # 1.1 103/ul Critically high 0.3-0.8 [facility] Comment on above: Performed By: #### C BC #### [facility] [address] [place] [address] Dr. David Magana Monocytes/100 WBC (Bld) 9.3 % Normal 1.7-12.0 [facility] Comment on above: Performed By: #### C BC #### [facility] [address] [place] [address] Dr. David Magana NEUT # 9.6 103/ul Critically high 1.4-6.5 [facility] Comment on above: Performed By: #### C BC #### [facility] [address] [address] [address] David Magana Neutrophils/100 WBC (Bld) 82.1 % Critically high 43.0-75.0 [facility] Comment on above: Performed By: #### C BC #### [facility] [address] [address] [address] David Magana Platelet mean volume (Bld) [Entitic vol] 10.8 fL Normal 9.5-13.5 [facility] Comment on above: Performed By: #### C BC #### [facility] [address] [address] [address] David Magana PLT 202 103/ul Normal 150-450 [facility] Comment on above: Performed By: #### C BC #### [facility] [address] [address] [address] David Magana RBC 4.33 106/ul Critically low 4.70-6.10 [facility] Comment on above: Performed By: #### C BC #### [facility] [address] [address] [address] David Magana WBC 11.7 103/ul Critically high 4.0-11.0 [facility] Comment on above: Performed By: #### C BC #### [facility] [facility] [address] [address] [address] David Magana PROF 14(COMP METB)on 022 Albumin [Mass/Vol] 3.4 g/dL Normal 3.4-5.0 [facility] Comment on above: Performed By: #### A 1C #### [facility] [address] [address] [address] David Magana Albumin/Globulin [Mass ratio] 1.1 {ratio} Normal [facility] Comment on above: Performed By: #### A 1C #### [facility] [address] [address] [address] David Magana ALP [Catalytic activity/Vol] 63 U/L Normal 46-116 [facility] Comment on above: Performed By: #### A 1C #### [facility] [address] [address] [address] David Magana ALT [Catalytic activity/Vol] 34 U/L Normal 16-63 [facility] Comment on above: Performed By: #### A 1C #### [facility] [address] [address] [address] David Magana Anion gap [Moles/Vol] 20.9 mmol/L Normal Th [facility] Comment on above: Performed By: #### A 1C #### [facility] [address] [place] [address] Dr. David Magana AST [Catalytic activity/Vol] 18 U/L Normal 15-37 [facility] Comment on above: Performed By: #### A 1C #### [facility] [address] [place] [address] Dr. David Magana Bilirubin [Mass/Vol] 0.5 mg/dL Normal 0.2-1.0 [facility] Comment on above: Performed By: #### A 1C #### [facility] [address] [place] [address] Dr. David Magana Calcium [Mass/Vol] 8.5 mg/dL Normal 8.5-10.1 [facility] Comment on above: Performed By: #### A 1C #### [facility] [address] [place] [address] Dr. David Magana Chloride [Moles/Vol] 99 mmol/L Normal 98-107 [facility] Comment on above: Performed By: #### A 1C #### [facility] [address] [address] [address] David Magana CO2 [Moles/Vol] 19.1 mmol/L Critically low 21.0-32.0 [facility] Comment on above: Performed By: #### A 1C #### [facility] [address] [place] [address] Dr. David Magana Creatinine [Mass/Vol] 1.80 mg/dL Critically high 0.70-1.30 [facility] Comment on above: Performed By: #### A 1C #### [facility] [address] [place] [address] Dr. David Magana EGFR-AF COSTA RICAN 44 mL/min/1.73m2 Critically low >=60 [facility] Comment on above: Performed By: #### A 1C #### [facility] [address] [address] [address] David Magana EGFR-NON AF COSTA RICAN 36 mL/min/1.73m2 Critically low >=60 [facility] Comment on above: Performed By: #### A 1C #### [facility] [address] [place] [address] Dr. David Magana Globulin (S) [Mass/Vol] 3.2 g/dL Normal [facility] Comment on above: Performed By: #### A 1C #### [facility] [address] [address] [address] David Magana Glucose [Mass/Vol] 287 mg/dL Critically high 74-106 [facility] Comment on above: Performed By: #### A 1C #### [facility] [address] [address] [address] David Magana Potassium [Moles/Vol] 5.0 mmol/L Normal 3.5-5.1 [facility] Comment on above: Performed By: #### A 1C #### [facility] [address] [address] [address] David Magana Protein [Mass/Vol] 6.6 g/dL Normal 6.4-8.2 [facility] Comment on above: Performed By: #### A 1C #### [facility] [address] [address] [address] David Magana Sodium [Moles/Vol] 134 mmol/L Critically low 136-145 [facility] Comment on above: Performed By: #### A 1C #### [facility] [address] [address] [address] David Magana Urea nitrogen [Mass/Vol] 51.0 mg/dL Critically high 7.0-18.0 [facility] Comment on above: Performed By: #### A 1C #### [facility] [address] [address] [address] David Magana Urea nitrogen/Creatinine [Mass ratio] 28.3 mg/mg Normal [facility] Comment on above: Performed By: #### A 1C #### [facility] [address] [address] [address] David Magana BLOOD GASES BTYon 07-18-2022 02 MODE NASAL CANNULA Normal [facility] Comment on above: Performed By: #### A 1C #### [facility] [address] [address] [address] David Magana ALLENS TEST Positive [facility] Comment on above: Performed By: #### A 1C #### [facility] [address] [address] [address] David Magana Base excess Calc (Bld) [Moles/Vol] -9.0000 mmol/L Critically low -2.0-2.0 [facility] Comment on above: Performed By: #### A 1C #### [facility] [address] [address] [address] David Magana BIPAP PRESSURE Normal [facility] Comment on above: Performed By: #### A 1C #### [facility] [address] [address] [address] David Magana CPAP [facility] Comment on above: Performed By: #### A 1C #### [facility] [address] [address] [address] David Magana FIO2 [facility] Comment on above: Performed By: #### A 1C #### [facility] [address] [address] [address] David Magana HCO3 (Bld) [Moles/Vol] 18.4 mmol/L Critically low 22.0-26.0 [facility] Comment on above: Performed By: #### A 1C #### [facility] [address] [address] [address] David Magana LPM 1.5 Normal [facility] Comment on above: Performed By: #### A 1C #### [facility] [address] [address] [address] David Magana MINUTE VOLUME Normal [facility] Comment on above: Performed By: #### A 1C #### [facility] [address] [address] [address] David Magana Oxygen (Bld) [Partial pressure] 69.5 mm[Hg] Critically low 80.0-100.0 [facility] Comment on above: Performed By: #### A 1C #### [facility] [address] [place] [address] Dr. David Magana Oxygen saturation in Blood 94.2 % Critically low 95.0-100.0 [facility] Comment on above: Performed By: #### A 1C #### [facility] [address] [place] [address] Dr. David Magana PCO2 29.6 mmHg Critically low 35.0-45.0 [facility] Comment on above: Performed By: #### A 1C #### [facility] [address] [place] [address] Dr. David Magana PEEP [facility] Comment on above: Performed By: #### A 1C #### [facility] [address] [place] [address] Dr. David Magana pH (Bld) 7.355 [pH] Normal 7.350-7.450 [facility] Comment on above: Performed By: #### A 1C #### [facility] [address] [place] [address] Dr. David Magana PIP [facility] Comment on above: Performed By: #### A 1C #### [facility] [address] [place] [address] Dr. David Magana PS [facility] Comment on above: Performed By: #### A 1C #### [facility] [address] [place] [address] Dr. David Magana PUNCTURE SITE LR [facility] Comment on above: Performed By: #### A 1C #### [facility] [address] [place] [address] Dr. David Magana [facility] Comment on above: Performed By: #### A 1C #### [facility] [address] [place] [address] Dr. David Magana [facility] Comment on above: Performed By: #### A 1C #### [facility] [address] [place] [address] Dr. David Magana [facility] Comment on above: Performed By: #### A 1C #### [facility] [address] [place] [address] Dr. David Magana BNPon 07-18-2022 Natriuretic peptide B (Bld) [Mass/Vol] 7047.0 pg/mL Critically high <=1,800.0 [facility] Comment on above: Performed By: #### C VDTB #### [facility] [address] [place] [address] Dr. David Magana CARDIAC BARRIE 3-6on 2 CK [Catalytic activity/Vol] 396 U/L Critically high 39-308 [facility] Comment on above: Performed By: #### ERICK Jacques PHOS #### [facility] [address] [place] [address] Dr. David Magana CK.MB [Mass/Vol] 2.94 ng/mL Normal <=3.60 [facility] Comment on above: Performed By: #### ERICK Jacques, PHOS #### [facility] [address] [place] [address] Dr. David Magana HSTROP 11.1 pg/mL Normal 4.0-76.1 [facility] Comment on above: Result Comment: CUT- OFF POINTS HAVE BEEN ESTABLISHED BASED ON THE FOURTH UNIVERSAL DEFINITIONS OF MYOCARDIAL INFARCTION. THE UPPER REFERENCE LIMIT (URL) OF TROPONIN, DEFINED THE 99TH PERCENTILE OF cTnI DISTRIBUTION IN A REFERENCE POPULATION, HAS BEEN CONFIRMED THE DECISION THRESHOLD FOR CA DIAGNOSIS. Performed By: #### M ERICK Faith, PHOS #### [facility] [address] [place] [address] Dr. David Magana CK [Catalytic activity/Vol] 58 U/L Normal 39-308 [facility] Comment on above: Performed By: #### ERICK Jacques, PHOS #### [facility] [address] [place] [address] Dr. David Magana CK.MB [Mass/Vol] 1.71 ng/mL Normal <=3.60 [facility] Comment on above: Performed By: #### ERICK Jacques, PHOS #### [facility] [address] [place] [address] Dr. David Magana HSTROP 10.6 pg/mL Normal 4.0-76.1 [facility] Comment on above: Result Comment: CUT- OFF POINTS HAVE BEEN ESTABLISHED BASED ON THE FOURTH UNIVERSAL DEFINITIONS OF MYOCARDIAL INFARCTION. THE UPPER REFERENCE LIMIT (URL) OF TROPONIN, DEFINED THE 99TH PERCENTILE OF cTnI DISTRIBUTION IN A REFERENCE POPULATION, HAS BEEN CONFIRMED THE DECISION THRESHOLD FOR CA DIAGNOSIS. Performed By: #### ERICK Jacques, PHOS #### [facility] [address] [place] [address] Dr. David Magana CBC AUTO DIFFon 07-18-2022 BASO # 0.0 103/ul Normal 0.0-0.1 [facility] Comment on above: Performed By: #### ERICK Jacques, PHOS #### [facility] [address] [place] [address] Dr. David Magana Basophils/100 WBC (Bld) 0.2 % Normal 0.2-2.0 [facility] Comment on above: Performed By: #### ERICK Jacques, PHOS #### [facility] [address] [place] [address] Dr. David Magana EO # 0.0 103/ul Normal 0.0-0.7 [facility] Comment on above: Performed By: #### ERICK Jacques, PHOS #### [facility] [address] [place] [address] Dr. David Magana Eosinophils/100 WBC (Bld) 0.2 % Critically low 0.9-7.0 [facility] Comment on above: Performed By: #### ERICK Jacques, PHOS #### [facility] [address] [place] [address] Dr. David Magana Erythrocyte distribution width (RBC) [Ratio] 13.2 % Normal 11.0-15.0 [facility] Comment on above: Performed By: #### M G, BMP, PHOS #### [facility] [address] [place] [address] Dr. David Magana Hematocrit (Bld) [Volume fraction] 43.8 % Normal 42.0-54.0 [facility] Comment on above: Performed By: #### M G, BMP, PHOS #### [facility] [address] [place] [address] Dr. David Magana Hemoglobin (Bld) [Mass/Vol] 14.5 g/dL Normal 14.0-18.0 [facility] Comment on above: Performed By: #### M G, BMP, PHOS #### [facility] [address] [place] [address] Dr. David Magana IG # 0.15 10e3/ul Critically high 0.00-0.[address] [facility] Comment on above: Performed By: #### M G, BMP, PHOS #### [facility] [address] [place] [address] Dr. David Magana IG % 1.3 % Critically high 0.0-0.5 [facility] Comment on above: Performed By: #### M G, BMP, PHOS #### [facility] [address] [place] [address] Dr. David Magana LYMPH # 0.5 103/ul Critically low 1.2-3.8 [facility] Comment on above: Performed By: #### M G, BMP, PHOS #### [facility] [address] [place] [address] Dr. David Magana Lymphocytes/100 WBC (Bld) 3.8 % Critically low 20.5-60.0 [facility] Comment on above: Performed By: #### M G, BMP, PHOS #### [facility] [address] [place] [address] Dr. David Magana MANUAL DIFF REQ NO Normal [facility] Comment on above: Performed By: #### M ERICK Faith, PHOS #### [facility] [address] [place] [address] Dr. David Magana MCH (RBC) [Entitic mass] 32.7 pg Normal 25.9-34.0 [facility] Comment on above: Performed By: #### M ERICK Faith, PHOS #### [facility] [address] [place] [address] Dr. David Magana MCHC (RBC) [Mass/Vol] 33.1 g/dL Normal 29.9-35.2 [facility] Comment on above: Performed By: #### ERICK Jacques, PHOS #### [facility] [address] [place] [address] Dr. David Magana MCV (RBC) [Entitic vol] 98.9 fL Critically high 80.0-94.0 [facility] Comment on above: Performed By: #### ERICK Jacques, PHOS #### [facility] [address] [place] [address] Dr. David Magana MONO # 0.7 103/ul Normal 0.3-0.8 [facility] Comment on above: Performed By: #### ERICK Jacques, PHOS #### [facility] [address] [place] [address] Dr. David Magana Monocytes/100 WBC (Bld) 5.7 % Normal 1.7-12.0 [facility] Comment on above: Performed By: #### ERICK Jacques, PHOS #### [facility] [address] [place] [address] Dr. David Magana NEUT # 10.4 103/ul Critically high 1.4-6.5 [facility] Comment on above: Performed By: #### ERICK Jacques, PHOS #### [facility] [address] [place] [address] Dr. David Magana Neutrophils/100 WBC (Bld) 88.8 % Critically high 43.0-75.0 [facility] Comment on above: Performed By: #### M G, BMP, PHOS #### [facility] [address], [place] [address] Dr. David Magana Platelet mean volume (Bld) [Entitic vol] 11.0 fL Normal 9.5-13.5 [facility] Comment on above: Performed By: #### M G, BMP, PHOS #### [facility] [address] [place], [place] [address] Dr. David Magana PLT 198 103/ul Normal 150-450 [facility] Comment on above: Performed By: #### M G, BMP, PHOS #### [facility] [address] [place], [place] [address] Dr. David Magana RBC 4.43 106/ul Critically low 4.70-6.10 [facility] Comment on above: Performed By: #### M G, BMP, PHOS #### [facility] [address] [place], [place] [address] Dr. David Magana WBC 11.8 103/ul Critically high 4.0-11.0 [facility] Comment on above: Performed By: #### M G, BMP, PHOS #### [facility] [address] [place], [place] [address] HEAD WO CONon 07-18-2022 CT HEAD WO CON INDICATION: 82 years old; Male. Change in mental status. TECHNIQUE: CT Head (ax/cor/sag reformats). Ionizing radiation dose reduced via iterative reconstruction/FBP blend and body size kV/mA adjustment. Comparison: None FINDINGS: POSTOPERATIVE CHANGES: None. BRAIN PARENCHYMA: No hemorrhage, mass or acute infarct. Normal leach/white differentiation. VENTRICLES/EXTRA-AXIAL SPACES: Widened, consistent with atrophy. [...] FRANCISCO ZELAYA Date: 2022-07-18 05:12 Normal [facility] Covid-19 PCR (CVDTBH)on SARS-CoV-2 (COVID-19) RNA SULTANA+probe Ql (Unsp spec) Detected Critically abnormal NOT DETECTED [facility] Comment on above: Result Comment: This test is not yet approved or cleared by the [place] FDA. When there are no FDA-approved or cleared tests available, and other criteria are met, FDA can make tests available under an emergency access mechanism called an Emergency Use Authorization (EUA). The EUA for this test is supported by the [place] of Health and Human Service's declaration that [...] used). Performed By: #### C VDTBH #### [facility] [address] [place] [address] Dr. David Magana D-DIMERon 07-18-2022 D-DIMER 1.69 mg/L FEU Critically high <=0.59 [facility] Comment on above: Performed By: #### C BC #### [facility] [address] [place] [address] Dr. David Magana D-DIMER COMMENTS SEE BELOW Normal [facility] [...] hospitalization. Performed By: #### C BC #### [facility] [address] [place] [address] Dr. David Magana POINT OF CARE GLUCOSEon Glucose [Mass/Vol] 329 mg/dL Critically high 74-106 [facility] Comment on above: Performed By: #### P OCGLUC #### [facility] [address] [address] [address] David Magana Glucose [Mass/Vol] 354 mg/dL Critically high 74-106 [facility] Comment on above: Performed By: #### P OCGLUC #### [facility] [address] [place] [address] Dr. David Magana PROF 14(COMP METB)on 022 Albumin [Mass/Vol] 3.6 g/dL Normal 3.4-5.0 [facility] Comment on above: Performed By: #### C VDTBH #### [facility] [address] [place] [address] Dr. David Magnaa Albumin/Globulin [Mass ratio] 1.1 {ratio} Normal [facility] Comment on above: Performed By: #### C VDTBH #### [facility] [address] [place] [address] Dr. David Magana ALP [Catalytic activity/Vol] 67 U/L Normal 46-116 [facility] Comment on above: Performed By: #### C VDTBH #### [facility] [address] [place] [address] Dr. David Magana ALT [Catalytic activity/Vol] 33 U/L Normal 16-63 [facility] Comment on above: Performed By: #### C VDTBH #### [facility] [address] [address] [address] David Magana Anion gap [Moles/Vol] 23.5 mmol/L Normal [facility] Comment on above: Performed By: #### C VDTBH #### [facility] [address] [address] [address] David Magana AST [Catalytic activity/Vol] 13 U/L Critically low 15-37 [facility] Comment on above: Performed By: #### C VDTBH #### [facility] [address] [place] [address] Dr. David Magana Bilirubin [Mass/Vol] 0.6 mg/dL Normal 0.2-1.0 [facility] Comment on above: Performed By: #### C VDTBH #### [facility] [address] [place] [address] Dr. David Magana Calcium [Mass/Vol] 8.4 mg/dL Critically low 8.5-10.1 [facility] Comment on above: Performed By: #### C VDTBH #### [facility] [address] [place] [address] Dr. David Magana Chloride [Moles/Vol] 93 mmol/L Critically low 98-107 [facility] Comment on above: Performed By: #### C VDTBH #### [facility] [address] [place] [address] Dr. David Magana CO2 [Moles/Vol] 17.9 mmol/L Critically low 21.0-32.0 [facility] Comment on above: Performed By: #### C VDTBH #### [facility] [address] [place] [address] Dr. David Magana Creatinine [Mass/Vol] 2.15 mg/dL Critically high 0.70-1.30 [facility] Comment on above: Performed By: #### C VDTBH #### [facility] [address] [place] [address] Dr. David Magana EGFR-AF COSTA RICAN 36 mL/min/1.73m2 Critically low >=60 [facility] Comment on above: Performed By: #### C VDTBH #### [facility] [address] [place] [address] Dr. David Magana EGFR-NON AF CO[place] RICAN 30 mL/min/1.73m2 Critically low >=60 [facility] Comment on above: Performed By: #### C VDTBH #### [facility] [address] [place] [address] Dr. David Magana Globulin (S) [Mass/Vol] 3.2 g/dL Normal [facility] Comment on above: Performed By: #### C VDTBH #### [facility] [address] [place] [address] Dr. David Magnaa Glucose [Mass/Vol] 345 mg/dL Critically high 74-106 [facility] Comment on above: Performed By: #### C VDTBH #### [facility] [address] [address] [address] David Magana Potassium [Moles/Vol] 5.4 mmol/L Critically high 3.5-5.1 [facility] Comment on above: Performed By: #### C VDTBH #### [facility] [address] [address] [address] David Magana Performed By: #### K #### [facility] [address] [place] [address] Dr. David Magana Protein [Mass/Vol] 6.8 g/dL Normal 6.4-8.2 [facility] Comment on above: Performed By: #### C VDTBH #### [facility] [address] [place] [address] Dr. David Magana Sodium [Moles/Vol] 129 mmol/L Critically low 136-145 Th [facility] Comment on above: Performed By: #### C VDTBH #### [facility] [address] [place] [address] Dr. David Magana Urea nitrogen [Mass/Vol] 65.0 mg/dL Critically high 7.0-18.0 [facility] Comment on above: Performed By: #### C VDTBH #### [facility] [address] [place] [address] Dr. David Magana Urea nitrogen/Creatinine [Mass ratio] 30.2 mg/mg Normal [facility] Comment on above: Performed By: #### C VDTBH #### [facility] [address] [place] [address] Dr. David Magana UA RANDOM W/MICROSCOPICon BACTERIA NONE SEEN Normal NONE SEEN [facility] Comment on above: Performed By: #### ERICK Jacques, PHOS #### [facility] [address] [place] [address] Dr. David Magana Bilirubin Ql (U) Negative Normal NEGATIVE [facility] Comment on above: Performed By: #### M G, BMP, PHOS #### [facility] [address] [place] [address] Dr. David Magana CAST NONE SEEN Normal NONE SEEN [facility] Comment on above: Performed By: #### M G, BMP, PHOS #### [facility] [address] [place] [address] Dr. David Magana Clarity (U) CLEAR Normal CLEAR [facility] Comment on above: Performed By: #### M G, BMP, PHOS #### [facility] [address] [place] [address] Dr. David aMgana Color (U) LT. YELLOW Normal YELLOW [facility] Comment on above: Performed By: #### M G, BMP, PHOS #### [facility] [address] [place] [address] Dr. David Magana Crystals LM Nom (Urine sed) NONE SEEN Normal NONE SEEN [facility] Comment on above: Performed By: #### M Marcell, BMP, PHOS #### [facility] [address] [place] [address] Dr. David Magana Epithelial cells LM Ql (Urine sed) RARE Normal NONE SEEN /RARE [facility] Comment on above: Performed By: #### M Marcell, BMP, PHOS #### [facility] [address] [place] [address] Dr. David Magana Glucose Ql (U) 1000 mg/dl Abnormal NEGATIVE [facility] Comment on above: Performed By: #### M Marcell, BMP, PHOS #### [facility] [address] [place] [address] Dr. David Magana Hemoglobin Ql (U) Negative Normal NEGATIVE [facility] Comment on above: Performed By: #### M G, BMP, PHOS #### [facility] [address] [place] [address] Dr. David Magana Ketones Ql (U) 15 mg/dl Abnormal NEGATIVE [facility] Comment on above: Performed By: #### M G, BMP, PHOS #### [facility] [address] [place] [address] Dr. David Magana LEUKOCYTES Negative Normal NEGATIVE [facility] Comment on above: Performed By: #### M G, BMP, PHOS #### [facility] [address] [address] [address] David Magana MUCOUS NONE SEEN Normal NONE SEEN [facility] Comment on above: Performed By: #### M G, BMP, PHOS #### [facility] [address] [address] [address] David Magana Nitrite Ql (U) Negative Normal NEGATIVE [facility] Comment on above: Performed By: #### M G, BMP, PHOS #### [facility] [address] [address] [address] David Magana pH (U) 5.5 [pH] Normal 5-9 [facility] Comment on above: Performed By: #### M G, BMP, PHOS #### [facility] [address] [place] [address] Dr. David Magana RBC NONE SEEN Abnormal 0-2 [facility] Comment on above: Performed By: #### M G, BMP, PHOS #### [facility] [address] [place] [address] Dr. David Magana SPEC GRAVITY <=1.005 Abnormal 1.005-<=1.02 5 [facility] Comment on above: Performed By: #### M G, BMP, PHOS #### [facility] [address] [place] [address] Dr. David Magana UA PROTEIN Negative Normal NEGATIVE/ TRACE [facility] Comment on above: Performed By: #### M G, BMP, PHOS #### [facility] [address] [address] [address] David Magana Urobilinogen Qn (U) 0.2 {Dionna'U}/dL Normal 0.2 - 1. 0 [facility] Comment on above: Performed By: #### M G, BMP, PHOS #### [facility] [address] [place] [address] Dr. David Magana WBC NONE SEEN Normal NONE SEEN [facility] Comment on above: Performed By: #### M G, BMP, PHOS #### [facility] [address] [address] [address] David Magana XR CHEST 1 Von [...] Yefri DWYER Date: 2022-07-18 00:09 Normal [facility] CARDIAC BARRIE ADMITon 022 CK [Catalytic activity/Vol] 61 U/L Normal 39-308 [facility] Comment on above: Performed By: #### C BC #### [facility] [address] [place] [address] Dr. David Magana CK.MB [Mass/Vol] 1.84 ng/mL Normal <=3.60 [facility] Comment on above: Performed By: #### C BC #### [facility] [address] [address] [address] David Magana HSTROP 9.4 pg/mL Normal 4.0-76.1 [facility] Comment on above: Result Comment: CUT- OFF POINTS HAVE BEEN ESTABLISHED BASED ON THE FOURTH UNIVERSAL DEFINITIONS OF MYOCARDIAL INFARCTION. THE UPPER REFERENCE LIMIT (URL) OF TROPONIN, DEFINED THE 99TH PERCENTILE OF cTnI DISTRIBUTION IN A REFERENCE POPULATION, HAS BEEN CONFIRMED THE DECISION THRESHOLD FOR CA DIAGNOSIS. Performed By: #### C BC #### [facility] [address] [address] [address] David Magana DUSTIN 533 ng/mL Critically high 16-96 [facility] Comment on above: Performed By: #### C BC #### [facility] [address] [place] [address] Dr. David Magana CBC AUTO DIFFon 07-17-2022 BASO # 0.0 103/ul Normal 0.0-0.1 [facility] Comment on above: Performed By: #### M ERICK Faith, PHOS #### [facility] [address] [place] [address] Dr. David Magana Basophils/100 WBC (Bld) 0.2 % Normal 0.2-2.0 [facility] Comment on above: Performed By: #### M Marcell BMP, PHOS #### [facility] [address] [place] [address] Dr. David Magana EO # 0.0 103/ul Normal 0.0-0.7 [facility] Comment on above: Performed By: #### M ERICK Faith, PHOS #### [facility] [address] [place] [address] Dr. David Magana Eosinophils/100 WBC (Bld) 0.1 % Critically low 0.9-7.0 [facility] Comment on above: Performed By: #### ERICK Jacques, PHOS #### [facility] [address] [place] [address] Dr. David Magana Erythrocyte distribution width (RBC) [Ratio] 13.2 % Normal 11.0-15.0 [facility] Comment on above: Performed By: #### ERICK Jacques, PHOS #### [facility] [address] [place] [address] Dr. David Magana Hematocrit (Bld) [Volume fraction] 43.1 % Normal 42.0-54.0 [facility] Comment on above: Performed By: #### M ERICK Faith, PHOS #### [facility] [address] [place] [address] Dr. David Magana Hemoglobin (Bld) [Mass/Vol] 14.5 g/dL Normal 14.0-18.0 [facility] Comment on above: Performed By: #### M ERICK Faith, PHOS #### [facility] [address] [place] [address] Dr. David Magana IG # 0.14 10e3/ul Critically high 0.00-0.[address] [facility] Comment on above: Performed By: #### M ERICK Faith, PHOS #### [facility] [address] [place] [address] Dr. David Magana IG % 1.2 % Critically high 0.0-0.5 [facility] Comment on above: Performed By: #### M ERICK Faith, PHOS #### [facility] [address] [place] [address] Dr. David Magana LYMPH # 0.4 103/ul Critically low 1.2-3.8 [facility] Comment on above: Performed By: #### M Marcell, ERICK, PHOS #### [facility] [address] [place] [address] Dr. David Magana Lymphocytes/100 WBC (Bld) 3.4 % Critically low 20.5-60.0 [facility] Comment on above: Performed By: #### M ERICK Faith, PHOS #### [facility] [address] [place] [address] Dr. David Magana MANUAL DIFF REQ NO Normal [facility] Comment on above: Performed By: #### M ERICK Faith, PHOS #### [facility] [address] [place] [address] Dr. David Magana MCH (RBC) [Entitic mass] 33.3 pg Normal 25.9-34.0 [facility] Comment on above: Performed By: #### M ERICK Faith, PHOS #### [facility] [address] [place] [address] Dr. David Magana MCHC (RBC) [Mass/Vol] 33.6 g/dL Normal 29.9-35.2 [facility] Comment on above: Performed By: #### M ERICK Faith, PHOS #### [facility] [address] [place] [address] Dr. David Magana MCV (RBC) [Entitic vol] 98.9 fL Critically high 80.0-94.0 [facility] Comment on above: Performed By: #### M ERICK Faith, PHOS #### [facility] [address] [place] [address] Dr. David Magana MONO # 1.1 103/ul Critically high 0.3-0.8 [facility] Comment on above: Performed By: #### M Marcell BMP, PHOS #### [facility] [address] [address] [address] David Magana Monocytes/100 WBC (Bld) 8.9 % Normal 1.7-12.0 [facility] Comment on above: Performed By: #### M G, BMP, PHOS #### [facility] [address] [place] [address] Dr. David Magana NEUT # 10.3 103/ul Critically high 1.4-6.5 [facility] Comment on above: Performed By: #### M Marcell BMP, PHOS #### [facility] [address] [place] [address] Dr. David Magana Neutrophils/100 WBC (Bld) 86.2 % Critically high 43.0-75.0 [facility] Comment on above: Performed By: #### ERICK Jacques, PHOS #### [facility] [address] [place] [address] Dr. David Magana Platelet mean volume (Bld) [Entitic vol] 11.1 fL Normal 9.5-13.5 [facility] Comment on above: Performed By: #### Jim Faith BMP, PHOS #### [facility] [address] [place] [address] Dr. David Magana PLT 229 103/ul Normal 150-450 [facility] Comment on above: Performed By: #### ERICK Jacques, PHOS #### [facility] [address] [place] [address] Dr. David Magana RBC 4.36 106/ul Critically low 4.70-6.10 [facility] Comment on above: Performed By: #### M Marcell BMP, PHOS #### [facility] [address] [place] [address] Dr. David Magana WBC 11.9 103/ul Critically high 4.0-11.0 [facility] Comment on above: Performed By: #### M Marcell BMP, PHOS #### [facility] [address] [place] [address] Dr. David Magana PROF CHEM 8 (BAS METB)on Anion gap [Moles/Vol] 26.5 mmol/L Normal [facility] Comment on above: Performed By: #### C BC #### [facility] [address] [address] [address] David Magana Calcium [Mass/Vol] 8.2 mg/dL Critically low 8.5-10.1 [facility] Comment on above: Performed By: #### C BC #### [facility] [address] [address] [address] David Magana Chloride [Moles/Vol] 89 mmol/L Critically low 98-107 [facility] Comment on above: Performed By: #### C BC #### [facility] [address] [address] [address] David Magana CO2 [Moles/Vol] 14.5 mmol/L Critically low 21.0-32.0 [facility] Comment on above: Performed By: #### C BC #### [facility] [address] [address] [address] David Magana Creatinine [Mass/Vol] 2.78 mg/dL Critically high 0.70-1.30 [facility] Comment on above: Performed By: #### C BC #### [facility] [address] [address] [address] David Magana EGFR-AF COSTA RICAN 27 mL/min/1.73m2 Critically low >=60 [facility] Comment on above: Performed By: #### C BC #### [facility] [address] [address] [address] David Magana EGFR-NON AF COSTA RICAN 22 mL/min/1.73m2 Critically low >=60 [facility] Comment on above: Performed By: #### C BC #### [facility] [address] [address] [address] David Magana Glucose [Mass/Vol] 442 mg/dL Critically high 74-106 [facility] Comment on above: Performed By: #### C BC #### [facility] [address] [address] [address] David Magana Potassium [Moles/Vol] 6.0 mmol/L Critically high 3.5-5.1 [facility] Comment on above: Performed By: #### C BC #### [facility] [address] [address] [address] David Magana Sodium [Moles/Vol] 124 mmol/L Critically low 136-145 [facility] Comment on above: Performed By: #### C BC #### [facility] [address] [address] [address] David Magana Urea nitrogen [Mass/Vol] 73.0 mg/dL Critically high 7.0-18.0 [facility] Comment on above: Performed By: #### C BC #### [facility] [address] [place] [address] Dr. David Magana Urea nitrogen/Creatinine [Mass ratio] 26.3 mg/mg Normal [facility] Comment on above: Performed By: #### C BC #### [facility] [address] [place] [address] Dr. David Magana Covid-19 PCR ([facility])on 06-16 SARS-CoV-2 (COVID-19) RNA SULTANA+probe Ql (Unsp spec) Detected Critically abnormal NOT DETECTED [facility] Comment on above: Result Comment: This test is not yet approved or cleared by the [place] FDA. When there are no FDA-approved or cleared tests available, and other criteria are met, FDA can make tests available under an emergency access mechanism called an Emergency Use Authorization (EUA). The EUA for this test is supported by the Anodizing Line Operator of Health and Human Service's (HHS's) declaration [...] By: #### M ERICK Faith PHOS #### [facility] [address] [place], [place] [address] Dr. David Magana ECHOCARDIO M/2D COMPLETEon 0 07-01-2022 ECHOCARDIO M/2D COMPLETE Patient: NADIR BETH Exam Date: 07/01/2022 : 1940 Gender:M Ordering : DR CLARIBEL CISNEROS M.D. Admission #: [id number] Family : VAN GONZALESBebeto . Order #: [id number] CLICK HERE TO VIEW EXAM ECHOCARDIOGRAM REPORT [...] 3.49 m/s, 3.49 m/s AoV Area (Peak Daija): 1.23 cm2, 1.37 cm2, 1.23 cm2, 1.37 [...] m/s, 0.50 m/s Pulmonic Valve PV Max Daija (0.6 - 0.9 m per sec): 1.02 m/s PV Max Gradient: 4.15 mm[Hg] Right Atrium Dictated by: Rohini Traylor M.D. on 07/01/2022 at 16:21 Approved by: Rohini Traylor M.D. on 07/01/2022 at 16:27 Normal [facility] Covid-19 PCR (CVD[facility])on SARS-CoV-2 (COVID-19) RNA SULTANA+probe Ql (Unsp spec) Not detected Normal NOT DETECTED [facility] Comment on above: Result [...] for this test is supported by the [place] of Health and Human Service's declaration that [...] used). Performed By: #### C VDTB #### [facility] [address] [place] [address] Dr. David Magana CREATININE URINEon URINE CREAT 14.70 mg/dL Critically low 20.00-300.00 [facility] Comment on above: Performed By: #### ERICK Jacques, PHOS #### [facility] [address] [place] [address] Dr. David Magana GLYCOHEMOGLOBIN A1Con 2021 ADA RECOMMENDATION SEE BELOW Normal [facility] Comment on above: Result Comment: ADA RECOMMENDED LIMIT 4.0 - 6.0 ADA THERAPEUTIC TARGET < 7.0 ACTION SUGGESTED > 7.0 Performed By: #### A 1C #### [facility] [address] [place] [address] Dr. David Magana Glucose [Mass/Vol] 209 mg/dL Normal [facility] Comment on above: Performed By: #### A 1C #### [facility] [address] [place] [address] Dr. David Magana HbA1c (Bld) [Mass fraction] 8.9 % Critically high 4.5-6.2 [facility] Comment on above: Performed By: #### A 1C #### [facility] [address] [place] [address] Dr. David Magana MAGNESIUMon 06-08-2022 Magnesium [Mass/Vol] 2.3 mg/dL Normal 1.8-2.4 [facility] Comment on above: Performed By: #### M G, BMP, PHOS #### [facility] [address] [place] [address] Dr. David Magana PHOSPHORUSon 06-08-2022 Phosphate [Mass/Vol] 3.5 mg/dL Normal 2.6-4.7 [facility] Comment on above: Performed By: #### M G, BMP, PHOS #### [facility] [address] [place] [address] Dr. David Magana PROF CHEM 8 (BAS METB)on Anion gap [Moles/Vol] 10.6 mmol/L Normal [facility] Comment on above: Performed By: #### M Marcell, BMP, PHOS #### [facility] [address] [place] [address] Dr. David Magana Calcium [Mass/Vol] 9.2 mg/dL Normal 8.5-10.1 [facility] Comment on above: Performed By: #### M Marcell, BMP, PHOS #### [facility] [address] [place] [address] Dr. David Magana Chloride [Moles/Vol] 102 mmol/L Normal 98-107 [facility] Comment on above: Performed By: #### M Marcell BMP, PHOS #### [facility] [address] [place] [address] Dr. David Magana CO2 [Moles/Vol] 30.1 mmol/L Normal 21.0-32.0 [facility] Comment on above: Performed By: #### M G, BMP, PHOS #### [facility] [address] [place] [address] Dr. David Magana Creatinine [Mass/Vol] 1.70 mg/dL Critically high 0.70-1.30 [facility] Comment on above: Performed By: #### M G, BMP, PHOS #### [facility] [address] [place] [address] Dr. David Magana EGFR-AF COSTA RICAN 47 mL/min/1.73m2 Critically low >=60 [facility] Comment on above: Performed By: #### M G, BMP, PHOS #### [facility] [address] [address] [address] David Magana EGFR-NON AF COSTA RICAN 39 mL/min/1.73m2 Critically low >=60 [facility] Comment on above: Performed By: #### M G, BMP, PHOS #### [facility] [address] [address] [address] David Magana Glucose [Mass/Vol] 197 mg/dL Critically high 74-106 [facility] Comment on above: Performed By: #### M G, BMP, PHOS #### [facility] [address] [address] [address] David Magana Potassium [Moles/Vol] 4.7 mmol/L Normal 3.5-5.1 [facility] Comment on above: Performed By: #### M G, BMP, PHOS #### [facility] [address] [address] [address] David Magana Sodium [Moles/Vol] 138 mmol/L Normal 136-145 [facility] Comment on above: Performed By: #### M G, BMP, PHOS #### [facility] [address] [address] [address] David Magana Urea nitrogen [Mass/Vol] 25.0 mg/dL Critically high 7.0-18.0 [facility] Comment on above: Performed By: #### M G, BMP, PHOS #### [facility] [address] [address] [address] David Magana Urea nitrogen/Creatinine [Mass ratio] 14.7 mg/mg Normal [facility] Comment on above: Performed By: #### M G, BMP, PHOS #### [facility] [address] [address] [address] David Magana PROTEIN RAND URINEon 022 UR PROT <5.0 Normal <=11.9 [facility] Comment on above: Performed By: #### C REAU, PROTU #### [facility] [address] [address] [address] David Magana BILIRUBIN CONJUGATED (DIRECT )on 04-28-2022 BILI, CONJUGATED 0.1 mg/dL Normal 0.0-0.2 [facility] Comment on above: Performed By: #### P OCGLUC #### [facility] [address] [place] [address] Dr. David Magana CBC AUTO DIFFon 04-28-2022 BASO # 0.1 103/ul Normal 0.0-0.1 [facility] Comment on above: Performed By: #### C VDTBH #### [facility] [address] [place] [address] Dr. David Magana Basophils/100 WBC (Bld) 0.7 % Normal 0.2-2.0 [facility] Comment on above: Performed By: #### C VDTBH #### [facility] [address] [place] [address] Dr. David Magana EO # 0.5 103/ul Normal 0.0-0.7 [facility] Comment on above: Performed By: #### C VDTBH #### [facility] [address] [place] [address] Dr. David Magana Eosinophils/100 WBC (Bld) 6.7 % Normal 0.9-7.0 [facility] Comment on above: Performed By: #### C VDTBH #### [facility] [address] [place] [address] Dr. David Magana Erythrocyte distribution width (RBC) [Ratio] 13.6 % Normal 11.0-15.0 [facility] Comment on above: Performed By: #### C VDTBH #### [facility] [address] [place] [address] Dr. David Magana Hematocrit (Bld) [Volume fraction] 45.9 % Normal 42.0-54.0 [facility] Comment on above: Performed By: #### C VDTBH #### [facility] [address] [place] [address] Dr. David Magana Hemoglobin (Bld) [Mass/Vol] 14.9 g/dL Normal 14.0-18.0 [facility] Comment on above: Performed By: #### C VDTBH #### [facility] [address] [address] [address] aDvid Magana IG # 0.03 10e3/ul Normal 0.00-0.03 [facility] Comment on above: Performed By: #### C VDTBH #### [facility] [address] [address] [address] David Magana IG % 0.4 % Normal 0.0-0.5 [facility] Comment on above: Performed By: #### C VDTBH #### [facility] [address] [place] [address] Dr. David Magana LYMPH # 1.0 103/ul Critically low 1.2-3.8 [facility] Comment on above: Performed By: #### C VDTBH #### [facility] [address] [place] [address] Dr. David Magana Lymphocytes/100 WBC (Bld) 13.4 % Critically low 20.5-60.0 [facility] Comment on above: Performed By: #### C VDTBH #### [facility] [address] [place] [address] Dr. David Magana MANUAL DIFF REQ NO Normal [facility] Comment on above: Performed By: #### C VDTBH #### [facility] [address] [place] [address] Dr. David Magana MCH (RBC) [Entitic mass] 33.8 pg Normal 25.9-34.0 [facility] Comment on above: Performed By: #### C VDTBH #### [facility] [address] [place] [address] Dr. David Magana MCHC (RBC) [Mass/Vol] 32.5 g/dL Normal 29.9-35.2 [facility] Comment on above: Performed By: #### C VDTBH #### [facility] [address] [place] [address] Dr. David Magana MCV (RBC) [Entitic vol] 104.1 fL Critically high 80.0-94.0 [facility] Comment on above: Performed By: #### C VDTBH #### [facility] [address] [address] [address] David Magana MONO # 0.8 103/ul Normal 0.3-0.8 [facility] Comment on above: Performed By: #### C VDTBH #### [facility] [address] [place] [address] Dr. David Magana Monocytes/100 WBC (Bld) 10.2 % Normal 1.7-12.0 [facility] Comment on above: Performed By: #### C VDTBH #### [facility] [address] [place] [address] Dr. David Magana NEUT # 5.1 103/ul Normal 1.4-6.5 [facility] Comment on above: Performed By: #### C VDTBH #### [facility] [address] [place] [address] Dr. David Magana Neutrophils/100 WBC (Bld) 68.6 % Normal 43.0-75.0 [facility] Comment on above: Performed By: #### C VDTBH #### [facility] [address] [place] [address] Dr. David Magana Platelet mean volume (Bld) [Entitic vol] 11.3 fL Normal 9.5-13.5 [facility] Comment on above: Performed By: #### C VDTBH #### [facility] [address] [place] [address] Dr. David Magana PLT 185 103/ul Normal 150-450 [facility] Comment on above: Performed By: #### C VDTBH #### [facility] [address] [place] [address] Dr. David Magana RBC 4.41 106/ul Critically low 4.70-6.10 [facility] Comment on above: Performed By: #### C VDTBH #### [facility] [address] [place] [address] Dr. David Magana WBC 7.5 103/ul Normal 4.0-11.0 [facility] Comment on above: Performed By: #### C VDTBH #### [facility] [address] [address] [address] David Magana FREE T3on 04-28-2022 FREE T3 2.17 pg/mlL Critically low 2.18-3.98 [facility] Comment on above: Performed By: #### P OCGLUC #### [facility] [address] [address] [address] David Magana LIPID PROFILEon 04-28-2022 CHOL-HDL RATIO NORM SEE BELOW Normal [facility] Comment on above: Result Comment: 3.3 - 4.4 LOW RISK 4.4 - 7.1 AVERAGE RISK 7.1 - 11.0 MODERATE RISK >11.0 HIGH RISK Performed By: #### P OCGLUC #### [facility] [address] [address] [address] David Magana Cholesterol [Mass/Vol] 234 mg/dL Critically high <=200 [facility] Comment on above: Performed By: #### P OCGLUC #### [facility] [address] [address] [address] David Magana Cholesterol in HDL [Mass/Vol] 58 mg/dL Normal 40-60 [facility] Comment on above: Performed By: #### P OCGLUC #### [facility] [address] [address] [address] David Magana Cholesterol in LDL [Mass/Vol] 129.0 mg/dL Normal [facility] Comment on above: Performed By: #### P OCGLUC #### [facility] [address] [address] [address] David Magana Cholesterol.total/Cho lesterol in HDL [Mass ratio] 4.0 {ratio} Normal [facility] Comment on above: Performed By: #### P OCGLUC #### [facility] [address] [address] [address] David Magana HDL NORMAL > or = 60 mg/dl - LO W CARDIOVASCULAR RISK <40 mg/dl - HIGH CARDIOVASCULAR RISK Normal [facility] Comment on above: Performed By: #### P OCGLUC #### [facility] [address] [address] [address] David Magana LDL CALC NORMAL SEE BELOW Normal [facility] Comment on above: Result Comment: <100 mg/dl OPTIMAL 100 - 129 mg/dl NEAR OR ABOVE OPTIMAL 130 - 159 mg/dl BORDERLINE HIGH 160 - 189 mg/dl HIGH >190 mg/dl VERY HIGH Performed By: #### P OCGLUC #### [facility] [address] [address] [address] David Magana Triglyceride [Mass/Vol] 235 mg/dL Critically high <=150 [facility] Comment on above: Performed By: #### P OCGLUC #### [facility] [address] [address] [address] David Magana VLDL CALC 47.0 mg/dL Normal [facility] Comment on above: Performed By: #### P OCGLUC #### [facility] [address] [address] [address] David Magana PROF 14(COMP METB)on 022 Albumin [Mass/Vol] 3.2 g/dL Critically low 3.4-5.0 [facility] Comment on above: Performed By: #### P OCGLUC #### [facility] [address] [address] [address] David Magana Albumin/Globulin [Mass ratio] 0.9 {ratio} Normal [facility] Comment on above: Performed By: #### P OCGLUC #### [facility] [address] [address] [address] David Magana ALP [Catalytic activity/Vol] 77 U/L Normal 46-116 [facility] Comment on above: Performed By: #### P OCGLUC #### [facility] [address] [address] [address] David Magana ALT [Catalytic activity/Vol] 24 U/L Normal 16-63 [facility] Comment on above: Performed By: #### P OCGLUC #### [facility] [address] [address] [address] David Magana Anion gap [Moles/Vol] 13.1 mmol/L Normal [facility] Comment on above: Performed By: #### P OCGLUC #### [facility] [address] [address] [address] David Magana AST [Catalytic activity/Vol] 13 U/L Critically low 15-37 [facility] Comment on above: Performed By: #### P OCGLUC #### [facility] [address] [address] [address] David aMgana Bilirubin [Mass/Vol] 0.3 mg/dL Normal 0.2-1.0 [facility] Comment on above: Performed By: #### P OCGLUC #### [facility] [address] [address] [address] David Magana Calcium [Mass/Vol] 8.8 mg/dL Normal 8.5-10.1 [facility] Comment on above: Performed By: #### P OCGLUC #### [facility] [address] [address] [address] David Magana Chloride [Moles/Vol] 106 mmol/L Normal 98-107 [facility] Comment on above: Performed By: #### P OCGLUC #### [facility] [address] [address] [address] David Magana CO2 [Moles/Vol] 27.5 mmol/L Normal 21.0-32.0 [facility] Comment on above: Performed By: #### P OCGLUC #### [facility] [address] [address] [address] David Magana Creatinine [Mass/Vol] 1.62 mg/dL Critically high 0.70-1.30 [facility] Comment on above: Performed By: #### P OCGLUC #### [facility] [address] [address] [address] David Magana EGFR-AF COSTA RICAN 50 mL/min/1.73m2 Critically low >=60 [facility] Comment on above: Performed By: #### P OCGLUC #### [facility] [address] [address] [address] David Magana EGFR-NON AF COSTA RICAN 41 mL/min/1.73m2 Critically low >=60 [facility] Comment on above: Performed By: #### P OCGLUC #### [facility] [address] [address] [address] David Magana Globulin (S) [Mass/Vol] 3.4 g/dL Normal [facility] Comment on above: Performed By: #### P OCGLUC #### [facility] [address] [address] [address] David Magana Glucose [Mass/Vol] 206 mg/dL Critically high 74-106 [facility] Comment on above: Performed By: #### P OCGLUC #### [facility] [address] [address] [address] David Magana Potassium [Moles/Vol] 4.6 mmol/L Normal 3.5-5.1 [facility] Comment on above: Performed By: #### P OCGLUC #### [facility] [address] [address] [address] David Magana Protein [Mass/Vol] 6.6 g/dL Normal 6.4-8.2 [facility] Comment on above: Performed By: #### P OCGLUC #### [facility] [address] [address] [address] David Magana Sodium [Moles/Vol] 142 mmol/L Normal 136-145 [facility] Comment on above: Performed By: #### P OCGLUC #### [facility] [address] [address] [address] David Magana Urea nitrogen [Mass/Vol] 26.0 mg/dL Critically high 7.0-18.0 [facility] Comment on above: Performed By: #### P OCGLUC #### [facility] [address] [address] [address] David Magana Urea nitrogen/Creatinine [Mass ratio] 16.0 mg/mg Normal [facility] Comment on above: Performed By: #### P OCGLUC #### [facility] [address] [address] [address] David Magana T4on 04-28-2022 T4 [Mass/Vol] 7.70 ug/dL Normal 4.50-12.10 [facility] Comment on above: Performed By: #### P OCGLUC #### [facility] [address] [address] [address] David Magana TSHon 04-28-2022 TSH 2.187 uIU/mL Normal 0.358-3.740 [facility] Comment on above: Performed By: #### P OCGLUC #### [facility] [address] [address] [address] David Magana TSH RANGE SEE BELOW Normal [facility] Comment on above: Result Comment: <0.3 4 UIU/ml HYPERTHYROID 0.34-5.60 UIU/ml EUTHYROID >5.60 UIU/ml HYPOTHYROID Performed By: #### P OCGLUC #### [facility] [address] [place] [address] Dr. David Magana Vital Signs Date Time Vital Sign Value Performing Clinician Facility 05-08-2025 16:32-0400 Body height 182.9 cm Winnie Herron [employer] Work Phone: [facility] 05-08-2025 16:32-0400 Body mass index (BMI) [Ratio] 25.09 kg/m2 Winnie Herron [employer] Work Phone: [facility] 05-08-2025 16:32-0400 Body weight 83.92 kg Winnie Herron [employer] Work Phone: [facility] 04-12-2025 11:05-0400 Body height 182.9 cm Blaise Chicas DPM Work Phone: [facility] 04-12-2025 11:05-0400 Body mass index (BMI) [Ratio] 24.95 kg/m2 Blaise Chicas DPM Work Phone: [facility] 04-12-2025 11:05-0400 Body weight 83.46 kg Blaise Chicas DPM Work Phone: [facility] 04-12-2025 11:05-0400 Respiratory rate 16 /min Blaise Chicas DPM Work Phone: [facility] 04-10-2025 12:58-0400 Body height 182.9 cm Barrie Montoya MD Work Phone: [facility] 04-10-2025 12:58-0400 Body mass index (BMI) [Ratio] 24.95 kg/m2 Barrie Montoya MD Work Phone: [facility] 04-10-2025 12:58-0400 Body weight 83.46 kg Barrie Montoya MD Work Phone: [facility] 03-08-2025 08:56-0400 Body height 182.9 cm Blaise Chicas DPM Work Phone: [facility] 03-08-2025 08:56-0400 Body mass index (BMI) [Ratio] 39.2 kg/m2 Blaise Chicas DPM Work Phone: [facility] 03-08-2025 08:56-0400 Body weight 131.09 kg Blaise Chicas DPM Work Phone: [facility] 03-08-2025 08:56-0400 Respiratory rate 18 /min Blaise Chicas DPM Work Phone: [facility] 12-04-2024 08:44-0500 Diastolic blood pressure 90 mm[Hg] MARQUIS NKANSAH-AMANKRA [facility] 12-04-2024 08:44-0500 Heart rate 78 /min MARQUIS NKANSAH-AMANKRA [facility] 12-04-2024 08:44-0500 Systolic blood pressure 160 mm[Hg] MARQUIS NKANSAH-AMANKRA [facility] 11-30-2024 08:28-0500 Body height 182.9 cm Blaise Chicas DPM Work Phone: [facility] 11-30-2024 08:28-0500 Body mass index (BMI) [Ratio] 39.2 kg/m2 Blaise Chicas DPM Work Phone: [facility] 11-30-2024 08:28-0500 Body weight 131.09 kg Blaise Chicas DPM Work Phone: [facility] 11-30-2024 08:28-0500 Respiratory rate 16 /min Blaise Chicas DPM Work Phone: [facility] 11-02-2024 08:09-0500 Blood Pressure Location MARQUIS NKANSAH-AMANKRA [facility] 11-02-2024 08:09-0500 Diastolic blood pressure 67 mm[Hg] MARQUIS NKANSAH-AMANKRA [facility] 11-02-2024 08:09-0500 Heart rate 65 /min MARQUIS NKANSAH-AMANKRA [facility] 11-02-2024 08:09-0500 Systolic blood pressure 102 mm[Hg] MARQUIS NKANSAH-AMANKRA [facility] 09-14-2024 08:19-0400 Body height 182.9 cm Blaise Chicas DPM Work Phone: [facility] 09-14-2024 08:19-0400 Body mass index (BMI) [Ratio] 39.2 kg/m2 Blaise Chicas DPM Work Phone: [facility] 09-14-2024 08:19-0400 Body weight 131.09 kg Blaise Chicas DPM Work Phone: [facility] 09-14-2024 08:19-0400 Diastolic blood pressure 79 mm[Hg] Blaise Chicas DPM Work Phone: [facility] 09-14-2024 08:19-0400 Heart rate 81 /min Blaise Chicas DPM Work Phone: [facility] 09-14-2024 08:19-0400 Systolic blood pressure 128 mm[Hg] Blaies Chicas DPM Work Phone: [facility] 08-08-2024 10:25-0400 Blood Pressure Location MARQUIS NKANSAH-AMANKRA [facility] 08-08-2024 10:25-0400 Diastolic blood pressure 82 mm[Hg] MARQUIS NKANSAH-AMANKRA [facility] 08-08-2024 10:25-0400 Systolic blood pressure 140 mm[Hg] MARQUIS NKANSAH-AMANKRA [facility] 08-03-2024 08:45-0400 Body height 182.9 cm Blaise Chicas DPM Work Phone: [facility] 08-03-2024 08:45-0400 Body mass index (BMI) [Ratio] 39.2 kg/m2 Blaise Chicas DPM Work Phone: [facility] 08-03-2024 08:45-0400 Body weight 131.09 kg Blaise Chicas DPM Work Phone: [facility] 08-03-2024 08:45-0400 Diastolic blood pressure 82 mm[Hg] Blaise Chicas DPM Work Phone: [facility] 08-03-2024 08:45-0400 Heart rate 75 /min Blaise Chicas DPM Work Phone: [facility] 08-03-2024 08:45-0400 Respiratory rate 18 /min Blaise Chicas DPM Work Phone: [facility] 08-03-2024 08:45-0400 Systolic blood pressure 130 mm[Hg] Blaise Chicas DPM Work Phone: [facility] 08-01-2024 11:24-0400 Body height 182.9 cm Barrie Montoya MD Work Phone: [facility] 08-01-2024 11:24-0400 Body mass index (BMI) [Ratio] 39.2 kg/m2 Barrie Montoya MD Work Phone: [facility] 08-01-2024 11:24-0400 Body weight 131.09 kg Barrie Montoya MD Work Phone: [facility] 08-01-2024 11:24-0400 Diastolic blood pressure 93 mm[Hg] Barrie Montoya MD Work Phone: [facility] 08-01-2024 11:24-0400 Heart rate 73 /min Barrie Montoya MD Work Phone: [facility] 08-01-2024 11:24-0400 Systolic blood pressure 182 mm[Hg] Barrie Montoya MD Work Phone: [facility] 07-20-2024 08:27-0400 Body height 182.9 cm Blaise Chicas DPM Work Phone: [facility] 07-20-2024 08:27-0400 Body mass index (BMI) [Ratio] 26.04 kg/m2 Blaise Chicas DPM Work Phone: [facility] 07-20-2024 08:27-0400 Body weight 87.09 kg Blaise Chicas DPM Work Phone: [facility] 07-20-2024 08:27-0400 Diastolic blood pressure 81 mm[Hg] Blaise Chicas DPM Work Phone: [facility] 07-20-2024 08:27-0400 Heart rate 75 /min Blaise Chicas DPM Work Phone: [facility] 07-20-2024 08:27-0400 Respiratory rate 18 /min Blaise Chicas DPM Work Phone: [facility] 07-20-2024 08:27-0400 Systolic blood pressure 130 mm[Hg] Blaise Chicas DPM Work Phone: [facility] 07-06-2024 08:27-0400 Body height 182.9 cm Blaise Chicas DPM Work Phone: [facility] 07-06-2024 08:27-0400 Body mass index (BMI) [Ratio] 26.04 kg/m2 Blaise Chicas DPM Work Phone: [facility] 07-06-2024 08:27-0400 Body weight 87.09 kg Blaise Chicas DPM Work Phone: [facility] 07-06-2024 08:27-0400 Diastolic blood pressure 81 mm[Hg] Blaise Chicas DPM Work Phone: [facility] 07-06-2024 08:27-0400 Heart rate 77 /min Blaise Chicas DPM Work Phone: [facility] 07-06-2024 08:27-0400 Systolic blood pressure 128 mm[Hg] Blaise Chicas DPM Work Phone: [facility] 10-14-2023 14:33-0500 Diastolic blood pressure 70 mm[Hg] Nereydasergio JoyaPatricia [facility] 10-14-2023 14:33-0500 Mean blood pressure 93 mm[Hg] Nereydasergio JoyaPatricia [facility] 10-14-2023 14:33-0500 Systolic blood pressure 138 mm[Hg] Nereyda Patricia [facility] 10-14-2023 14:18-0500 Blood Pressure Location Nereyda Patricia [facility] 10-14-2023 14:18-0500 Body temperature 97.88 [degF] Nereydasergio JoyaPatricia [facility] 10-14-2023 14:18-0500 Diastolic blood pressure 73 mm[Hg] Nereyda Patricia [facility] 10-14-2023 14:18-0500 Heart rate 91 /min Nereyda Patricia [facility] 10-14-2023 14:18-0500 Systolic blood pressure 143 mm[Hg] Nereyda Patricia [facility] 10-01-2023 12:13-0500 Diastolic blood pressure 66 mm[Hg] Nereyda Patricia [facility] 10-01-2023 12:13-0500 Mean blood pressure 104 mm[Hg] Nereyda Patricia [facility] 10-01-2023 12:13-0500 Systolic blood pressure 179 mm[Hg] Nereyda Patricia [facility] 10-01-2023 12:10-0500 Blood Pressure Location Nereyda Patricia [facility] 10-01-2023 12:10-0500 Body temperature 98.42 [degF] Nereyda Patricia [facility] 10-01-2023 12:10-0500 Diastolic blood pressure 77 mm[Hg] Nereyda Patricia [facility] 10-01-2023 12:10-0500 Heart rate 81 /min Nereyda Patricia [facility] 10-01-2023 12:10-0500 Respiratory rate 14 /min Nereyda Patricia [facility] 10-01-2023 12:10-0500 Systolic blood pressure 168 mm[Hg] Nereyda Patricia [facility] 06-10-2023 10:43-0400 Diastolic blood pressure 64 mm[Hg] Nereyda Patricia [facility] 06-10-2023 10:43-0400 Heart rate 76 /min Nereyda Patricia [facility] 06-10-2023 10:43-0400 Respiratory rate 16 /min Nereyda Patricia [facility] 06-10-2023 10:43-0400 SaO2% (BldA) [Mass fraction] 95 % Nereyda Patricia [facility] 06-10-2023 10:43-0400 Systolic blood pressure 121 mm[Hg] Nereyda Patricia [facility] 04-13-2023 14:19-0400 Diastolic blood pressure 70 mm[Hg] Nereyda Patricia [facility] 04-13-2023 14:19-0400 Mean blood pressure 95 mm[Hg] Nereyda Patricia [facility] 04-13-2023 14:19-0400 Systolic blood pressure 146 mm[Hg] Nereyda Patricia [facility] 04-13-2023 14:15-0400 Blood Pressure Location Nereyda Patricia [facility] 04-13-2023 14:15-0400 Body temperature 97.7 [degF] Nereyda Patricia [facility] 04-13-2023 14:15-0400 Diastolic blood pressure 87 mm[Hg] Nereyda Patricia [facility] 04-13-2023 14:15-0400 Heart rate 70 /min Nereyda Patricia [facility] 04-13-2023 14:15-0400 Systolic blood pressure 150 mm[Hg] Nereyda Gomez [facility] 06-09-2022 10:02-0400 Body temperature 96.98 [degF] Nereyda Gomez [facility] 06-09-2022 10:02-0400 Diastolic blood pressure 75 mm[Hg] Nereyda Gomez [facility] 06-09-2022 10:02-0400 Heart rate 72 /min Nereyda Gomez [facility] 06-09-2022 10:02-0400 SaO2% (BldA) [Mass fraction] 97 % Nereyda Gomez [facility] 06-09-2022 10:02-0400 Systolic blood pressure 139 mm[Hg] Nereyda Donatoz [facility] 05-11-2022 11:30-0400 Diastolic blood pressure 102 mm[Hg] Bender SALAM [facility] 05-11-2022 11:30-0400 Heart rate 86 /min Bender SALAM [facility] 05-11-2022 11:30-0400 Respiratory rate 15 /min Bender SALAM [facility] 05-11-2022 11:30-0400 SaO2% (BldA) [Mass fraction] 95 % Bender SALAM [facility] 05-11-2022 11:30-0400 Systolic blood pressure 172 mm[Hg] Bender SALAM [facility] 05-11-2022 11:15-0400 Diastolic blood pressure 88 mm[Hg] Bender SALAM [facility] 05-11-2022 11:15-0400 Heart rate 86 /min Bender SALAM [facility] 05-11-2022 11:15-0400 Respiratory rate 18 /min Bender SALAM [facility] 05-11-2022 11:15-0400 SaO2% (BldA) [Mass fraction] 97 % Bender SALAM [facility] 05-11-2022 11:15-0400 Systolic blood pressure 170 mm[Hg] Bender SALAM [facility] 05-11-2022 11:10-0400 Diastolic blood pressure 108 mm[Hg] Bender SALAM [facility] 05-11-2022 11:10-0400 Heart rate 85 /min Bender SALAM [facility] 05-11-2022 11:10-0400 Respiratory rate 14 /min Bender SALAM [facility] 05-11-2022 11:10-0400 SaO2% (BldA) [Mass fraction] 97 % Bender SALAM [facility] 05-11-2022 11:10-0400 Systolic blood pressure 157 mm[Hg] Bender SALAM [facility] 05-11-2022 11:02-0400 Body temperature 97.34 [degF] Bender SALAM [facility] 05-11-2022 10:27-0400 Blood Pressure Location Benderantoinette MARKAM [facility] 05-11-2022 10:23-0400 Blood Pressure Location Napoleon MARKAM [facility] 05-11-2022 10:23-0400 Body temperature 98.24 [degF] Napoleon MARKAM [facility] 03-31-2022 09:53-0400 Blood Pressure Location Nereyda Gomez [facility] 03-31-2022 09:53-0400 Body temperature 97.7 [degF] Nereyda Gomez [facility] 03-31-2022 09:53-0400 Diastolic blood pressure 72 mm[Hg] Nereyda Gomez [facility] 03-31-2022 09:53-0400 Heart rate 73 /min Nereyda Gomez [facility] 03-31-2022 09:53-0400 SaO2% (BldA) [Mass fraction] 96 % Nereyda Gomez [facility] 03-31-2022 09:53-0400 Systolic blood pressure 129 mm[Hg] Nereyda Joyametz [facility] Encounters Encounter Date Encounter Type Care Provider Facility Start: 06-11-2025 ambulatory SANTIAGO Torres acility:[facility] Start: 05-08-2025 End: 05-08-2025 Bamboo flowsheet Winnie Herron NP Work Phone: [facility] Start: 05-08-2025 End: 05-08-2025 Bamboo flowsheet Winnie Herron [employer] Work Phone: [facility] Start: 05-08-2025 End: 05-08-2025 Office outpatient visit 40 minutes Winnie Herron [employer] Work Phone: [facility] Comment on above: Benign essential mikel mor (Primary Dx); Neurogenic pain; Sequelae of cerebral infarction; Cervical paraspinal muscle spasm; JOSIAH (obstructive sleep apnea); Carotid stenosis, bilateral; Polyneuropathy Start: 04-30-2025 End: 04-30-2025 ambulatory [facility] Start: 04-14-2025 End: 04-18-2025 Evaluation and management of inpatient DO Ronobir R KARTIK [place] Start: 04-14-2025 End: 04-16-2025 Emergency department patient visit [facility] Start: 04-14-2025 ambulatory [facility] Start: 04-14-2025 Emergency department patient visit Rivas Beaverssushma [facility] Start: 04-14-2025 End: 04-18-2025 Evaluation and management of inpatient Ronobir R KARTIK [facility] Start: 04-12-2025 End: 04-12-2025 Bamboo flowsheet Blaise Chicas DPM Work Phone: [facility] Start: 04-12-2025 End: 04-12-2025 Bamboo flowsheet Blaise Chicas DPM Work Phone: [facility] Start: 04-12-2025 End: 04-12-2025 Patient encounter procedure Blaise Chicas DPM Work Phone: [facility] Comment on above: Verruca plantaris (P rimary Dx); Foot pain, right; Diabetes mellitus due to underlying condition with diabetic polyneuropathy, unspecified whether correction insulin use (CMS/HCC); Pain due to onychomycosis of toenails of both feet Start: 04-12-2025 End: 04-12-2025 ambulatory BLAISE CHICAS Not Available Start: 04-10-2025 End: 04-10-2025 Bamboo flowspatrick Montoya MD Work Phone: [facility] Start: 04-10-2025 End: 04-10-2025 Bamboo flowspatrick Montoya MD Work Phone: [facility] Start: 04-10-2025 End: 04-10-2025 Office outpatient visit 25 minutes Barrie Montoya MD Work Phone: [facility] Comment on above: Benign essential mikel mor (Primary Dx); Neurogenic pain; Sequelae of cerebral infarction; Cervical paraspinal muscle spasm; JOSIAH (obstructive sleep apnea); Carotid stenosis, bilateral Start: 04-10-2025 End: 04-10-2025 ambulatory BARRIE MONTOYA Not Available Start: 03-12-2025 End: 03-12-2025 ambulatory [facility] Start: 03-08-2025 End: 03-08-2025 Bamboo flowspatrick Chicas DPM Work Phone: [facility] Start: 03-08-2025 End: 03-08-2025 Bamboo tarik Chicas DPM Work Phone: [facility] Start: 03-08-2025 End: 03-08-2025 Postop follow up visit related to original px Blaise Chicas DPM Work Phone: [facility] Comment on above: Verruca plantaris (P rimary Dx); Foot pain, right; Diabetes mellitus due to underlying condition with diabetic polyneuropathy, unspecified whether correction insulin use (CMS/HCC); Pain due to onychomycosis of toenails of both feet Start: 03-08-2025 End: 03-08-2025 ambulatory BLAISE CHICAS Not Available Start: 02-28-2025 End: 02-28-2025 ambulatory [facility] Start: 02-15-2025 ambulatory [facility] Start: 02-14-2025 End: 02-17-2025 Emergency department patient visit [facility] Start: 01-03-2025 End: 01-03-2025 ambulatory RUTHIE [facility] Start: 12-14-2024 End: 12-14-2024 ambulatory [facility] Start: 12-04-2024 End: 12-04-2024 ambulatory MARQUIS ADRIAN [facility] Start: 12-04-2024 End: 12-04-2024 Patient encounter procedure MARQUIS ADRIAN [facility] Start: 11-30-2024 End: 11-30-2024 Bamboo [...] underlying condition with diabetic polyneuropathy, unspecified whether correction insulin use ([facility]); Pain due to onychomycosis of toenails of both feet Start: 11-30-2024 End: 11-30-2024 ambulatory BLAISE CHICAS Not Available Start: 11-06-2024 End: 11-06-2024 ambulatory Mejia SINGH Facility:[facility] Start: 11-06-2024 End: 11-06-2024 Patient encounter procedure Mejia SINGH [facility] Start: 11-02-2024 End: 11-02-2024 ambulatory MARQUIS NKANSAH-AMANKRA Facility:[facility] Start: 11-02-2024 End: 11-02-2024 Patient encounter procedure MARQUIS NKANSAH-AMANKRA [facility] Start: 10-30-2024 End: 10-30-2024 ambulatory Mejia SINGH Facility:[id number] Start: 10-25-2024 End: 10-25-2024 ambulatory MARQUIS NKANSAH-AMANKRA Facility:[facility] Start: 10-23-2024 End: 10-23-2024 ambulatory MARQUIS NKANSAH-AMANKRA [facility] Start: 10-23-2024 End: 10-23-2024 Patient encounter procedure MARQUIS NKANSAH-AMANKRA [facility] Start: 10-02-2024 End: 10-02-2024 ambulatory MARQUIS NKANSAH-AMANKRA Facility:[facility] Start: 09-25-2024 End: 09-25-2024 ambulatory MARQUIS NKANSAH-AMANKRA [facility] Start: 09-25-2024 End: 09-25-2024 Patient encounter procedure MARQUIS NKANSAH-AMANKRA [facility] Start: 09-14-2024 End: 09-14-2024 Bamboo flowsheet Blaise Chicas DPM Work Phone: [facility] Start: 09-14-2024 End: 09-14-2024 Bamboo flowsheet Blaise Chicas DPM Work Phone: [facility] Start: 09-14-2024 End: 09-14-2024 Patient encounter procedure Blaise Chicas DPM Work Phone: [facility] Comment on above: Verruca plantaris (P rimary Dx); Foot pain, right; Diabetes mellitus due to underlying condition with diabetic polyneuropathy, unspecified whether correction insulin use ([facility]); Pain due to onychomycosis of [...] JOY Not Available Start: 08-22-2024 ambulatory MARQUIS ARLETH-AMANKRA Facility:[facility] Start: 08-17-[address] [facility] Start: 08-14-2024 End: 08-17-2024 Telephone encounter Barrie Montoya MD Work Phone: [facility] 111 Start: 08-08-2024 End: 08-08-[address] [facility] Start: 08-08-2024 End: 08-08-2024 Patient encounter procedure MARQUIS ROANEELAEMMY-AMJOVANIRA [facility] Start: 08-03-2024 End: 08-03-2024 Bamboo flowsheet Blaise Chicas DPM Work Phone: [facility] Start: 08-03-2024 End: 08-03-2024 Bamboo flowsheet Blaise Chicas DPM Work Phone: [facility] Start: 08-03-2024 End: 08-03-2024 Patient encounter procedure Blaise Chicas DPM Work Phone: [facility] Comment on above: Verruca plantaris (P rimary Dx); Foot pain, right; Xerosis cutis Start: 08-03-2024 End: 08-03-2024 ambulatory BLAISE CHICAS Not Available Start: 08-01-2024 End: 08-01-2024 Bamboo flowsheet Barrie Montoya MD Work Phone: [facility] Start: 08-01-2024 End: 08-01-2024 Bamboo flowsheet Barrie Montoya MD Work Phone: [facility] Start: 08-01-2024 End: 08-01-2024 Office outpatient visit 25 minutes Barrie Montoya MD Work Phone: [facility] Comment on above: Neurogenic pain (Jyothi kervin Dx); Benign essential tremor Start: 08-01-2024 End: 08-01-2024 ambulatory BARRIE MONTOYA Not Available Start: 07-20-2024 End: 07-20-2024 Bamboo flowsheet Blaise Chicas DPM Work Phone: [facility] Start: 07-20-2024 End: 07-20-2024 Bamboo flowsheet Blaise Chicas DPM Work Phone: [facility] Start: 07-20-2024 End: 07-20-2024 Patient encounter procedure Blaise Chicas DPM Work Phone: [facility] Comment on above: Verruca plantaris (P rimary Dx); Foot pain, right; Xerosis cutis Start: 07-20-2024 End: 07-20-2024 ambulatory BLAISE CHICAS Not Available Start: 07-06-2024 End: 07-06-2024 Bamboo flowsheet Blaise Chicas DPM Work Phone: [facility] Start: 07-06-2024 End: 07-06-2024 Bamboo flowsheet Blaise Chicas DPM Work Phone: [facility] Start: 07-06-2024 End: 07-06-2024 Office outpatient visit 15 minutes Blaise Chicas DPM Work Phone: [facility] Comment on above: Xerosis cutis (Prima ry Dx); Verruca plantaris; Foot pain, right; Diabetes mellitus due to underlying condition with diabetic polyneuropathy, unspecified whether correction insulin use ([facility]); Onychomycosis; Toe pain, bilateral Start: 07-06-2024 End: 07-06-2024 ambulatory BLAISE CHICAS Not Available Start: 07-05-2024 End: 07-05-2024 [facility] Start: 06-07-2024 End: 06-07-2024 ambulatory RUTHIE [facility] Start: 06-05-2024 End: 06-05-2024 [facility] Start: 06-01-2024 End: 06-01-2024 ambulatory BLAISE CHICAS Not Available Start: 04-20-2024 End: 04-20-2024 ambulatory BLAISE CHICAS Not Available Start: 10-14-2023 End: 10-14-2023 Patient encounter procedure Nereyda Gomez [facility] Start: 10-01-2023 End: 10-01-2023 Patient encounter procedure Nereyda Gomez [facility] Start: 10-01-2023 End: 10-01-2023 Patient encounter procedure Nereyda Gomez [facility] Start: 09-13-2023 End: 09-13-2023 Patient encounter procedure Nereyda Gomez [facility] Start: 06-10-2023 End: 06-10-2023 Patient encounter procedure Nereyda Gomez [facility] Start: 04-15-2023 End: 04-15-2023 Lab Drop off Nereyda Gomez [facility] Start: 04-13-2023 End: 04-13-2023 Patient encounter procedure Nereyda Gomez [facility] Start: 03-24-2023 End: 03-25-2023 [...] End: 06-09-2022 Patient encounter procedure Nereyda Gomez [facility] Start: 06-08-2022 End: 06-09-2022 ambulatory GAMALIEL DALEY Facility:[facility] Start: 05-11-2022 End: 05-11-2022 Patient encounter procedure Napoleon NOVA [facility] Start: 04-28-2022 End: 04-29-[address] VAN YOUSSEF . Facility:[facility] Start: 03-31-2022 End: 03-31-2022 Patient encounter procedure Nereyda Gomez [facility] Start: 2019 End: 02-07-2019 Patient encounter procedure DEFAULT PHYSICIAN Facility:[facility] Procedures Date Procedure Procedure Detail Performing Clinician Start: 08-24-2024 CRYOTHERAPY SKIN LESION Rodney Joy MD Work Phone: Start: 05-11-2022 Colonoscopy Napoleon Fernandez Comment on above: 2 polyps, diveticulo sis, IH Start: 01-11-2017 Cardioversion Nereyda Rian nmetz Back structure, excl uding neck (body structure) Nereydasergio Donatoz Cholecystectomy Nereyda Good mcdonough Colonoscopy Nereyda Donatoz History of hernia repair Bet sergio Patricia Tonsillectomy Nereyda Patricia Plan of Treatment Date Care Activity Detail Author Start: 10-09-2025 End: 10-09-2025 Patient encounter procedure 10/09/2025 1:45 PM EST Office Visit [facility] [address] [place] [address] Barrie Montoya MD [address] [facility] [address] [address] [facility] Start: 09-11-2025 End: 09-11-2025 Patient encounter procedure 09/11/2025 1:15 PM EDT Office Visit [facility] [address] [place] [address] Rodney Joy MD [address] [place] [address] [facility] Start: 08-23-2025 End: 08-23-2025 Patient encounter procedure 08/23/2025 10:50 AM EDT Office Visit [facility] [address] [place] [address] Rodney Joy MD [address] [place] [address] [facility] Start: 07-10-2025 End: 07-10-2025 Patient encounter procedure 07/10/2025 10:30 AM EDT Office Visit [facility] [address] [place] [address] Barrie Montoya MD [address] [facility] [address] [address] [facility] Start: 06-21-2025 End: 06-21-2025 Patient encounter procedure 06/21/2025 10:40 AM EDT Office Visit [facility] [address] [facility] [address] [place] [address] Blaise Chicas, DPM [address] [facility] [address] [place] [address] [facility] Start: 05-08-2025 End: 05-08-2025 Patient encounter procedure 05/08/2025 2:00 PM EDT Office Visit [facility] [address] [facility] [[email or web address] [address] [place] [address] Winnie Herron, [employer] [address] [place] [id number] Arrived [facility] Comment on above: Arrived Start: 04-12-2025 End: 04-12-2025 Patient encounter procedure [facility] Comment on above: Verruca plantaris (P rimary Dx); Foot pain, right; Diabetes mellitus due to underlying condition with diabetic polyneuropathy, unspecified whether rodent 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 insulin use (CMS/HCC); Pain due to onychomycosis of toenails of both feet Start: 03-08-2025 End: 03-08-2025 Patient encounter procedure 03/08/2025 9:20 AM EDT Office Visit [facility] [address] [facility] [address] [place] [phone] Blaise Chicas, DPM [address] [address] Verruca plantaris (Primary Dx); Foot pain, right; Diabetes mellitus due to underlying condition with diabetic polyneuropathy, unspecified whether correction insulin use (CMS/HCC); Pain due to onychomycosis of toenails of both feet [facility] Comment on above: Verruca plantaris (P rimary Dx); Foot pain, right; Diabetes mellitus due to underlying condition with diabetic polyneuropathy, unspecified whether correction insulin use (CMS/HCC); Pain due to onychomycosis of toenails of both feet Start: 02-15-2025 End: 02-15-2025 Patient encounter procedure 02/15/2025 8:40 AM EDT Office Visit [facility] [address] [facility] [address] [place] [address] Blaise Chicas, DPM [address] [address] [facility] Start: 11-30-2024 End: 11-30-2024 Patient encounter procedure [facility] Comment on above: Verruca plantaris (P rimary Dx); Foot pain, right; Diabetes mellitus due to underlying condition with diabetic polyneuropathy, unspecified whether rodent 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 insulin use (CMS/HCC); Pain due to onychomycosis of toenails of both feet Start: 10-10-2024 End: 10-10-2024 Patient encounter procedure 10/10/2024 10:45 AM EST Office Visit [facility] [address] [facility] [[email or web address] [address] [place] [phone] Barrie Montoya MD [address] [address] [facility] Start: 09-14-2024 End: 09-14-2024 Patient encounter procedure [facility] Comment on above: Verruca plantaris (P rimary Dx); Foot pain, right; Diabetes mellitus due to underlying condition with diabetic polyneuropathy, unspecified whether rodent 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 insulin use ([facility]); Pain due to onychomycosis of toenails of both feet Start: 08-24-2024 End: 08-24-2024 Patient encounter procedure [facility] Comment on above: Arrived Start: 08-03-2024 End: 08-03-2024 Patient encounter procedure [facility] Comment on above: Verruca plantaris (P rimary Dx); Foot pain, right; Xerosis cutis Start: 08-01-2024 End: 08-01-2024 Patient encounter procedure 08/01/2024 1:30 PM EDT Office Visit [facility] [address] [facility] [[email or web address] [address] [place] [phone] Barrie Montoya MD [address] [id number] [facility] Start: 08-01-2024 End: 08-01-2024 Patient encounter procedure 08/01/2024 11:30 AM EDT Office Visit [facility] [address] [facility] [address] [place] [address] Barrie Montoya MD [address] [facility] [address] [place] [address] [facility]rived [facility] Comment on above: Arrived Start: 07-20-2024 End: 07-20-2024 Patient encounter procedure [facility] Comment on above: Verruca plantaris (P rimary Dx); Foot pain, right; Xerosis cutis Start: 07-16-2024 Influenza vaccination Influenza Vacc ine (#1) [facility] Start: 07-06-2024 End: 07-06-2024 Patient encounter procedure 07/06/2024 8:40 AM EDT Office Visit [facility] [address] [facility] [address] [place] [address] Blaise Chicas DPM [address] [facility] [address] [place] [address] Verruca plantaris (Primary Dx); Foot pain, right; Diabetes mellitus due to underlying condition with diabetic polyneuropathy, unspecified whether correction insulin use ([facility]); Onychomycosis; Toe pain, bilateral; Xerosis cutis [facility] Comment on above: Verruca plantaris (P rimary Dx); Foot pain, right; Diabetes mellitus due to underlying condition with diabetic polyneuropathy, unspecified whether rodent 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 insulin use ([facility]); Onychomycosis; Toe pain, bilateral; Xerosis cutis Immunizations Immunization Date Immunization Notes Care Provider [facility] 08-20-2023 influenza virus vaccine, unspecified formulation Blaise Chicas DPM Work Phone: [facility] 10-21-2022 SARS-CoV-2 (COVID-19 ) [id number] Nereyda Patircia [facility] Comment on above: Result Comment: 2022: [id number] 08-26-2021 SARS-CoV-2 (COVID-19 ) mRNA BNT-162v1 vax Nereydasergio JoyaPatricia [facility] 01-01-2021 SARS-CoV-2 (COVID-19 ) mRNA BNT-162b2 vax Nereyda Patricia [facility] 12-09-2020 SARS-CoV-2 (COVID-19 ) mRNA BNT-162d5 vax Nereydasergio JoyaPatricia [facility] 08-27-2020 influenza virus vaccine, unspecified formulation Nereyda Patricia [facility] 08-16-2017 pneumococcal conjugate vaccine, 13 valent Nereydasergio JoyaPatricia [facility] 08-05-2017 influenza, unspecified formulation Nereyda Patricia [facility] 09-20-2015 zoster vaccine, live [facility] NEGATED: Highlighted row has not occurred!10-13-2023 influenza virus vaccine, unspecified formulation Nereyda Patricia [facility] NEGATED: Highlighted row has not occurred!09-29-2023 influenza virus vaccine, unspecified formulation Nereyda Patricia [facility] Payers Date Payer Category Payer Private Health Insurance [id number] 2022 Unknown 2005 Unknown [id number] 2004 Medicare [id number] 1959 Medicare [id number] 1939 Unknown [id number] 2.16.8 40.1.224587.3.579.2.647 1939 Unknown [id number] 2.16.84 0.1.173865.3.579.2.593 1939 Unknown [id number] 2.16.84 0.1.694386.3.579.2.593 1939 Unknown [id number] 2.16.84 0.1.087301.3.579.2.593 1939 Unknown [id number] 2.16.84 0.1.218125.3.579.2.593 1939 Unknown [id number] 2.16.84 0.1.455392.3.579.2.593 1939 Unknown [id number] 2.16.84 0.1.877722.3.579.2.593 1939 Unknown [id number] 2.16.84 0.1.452340.3.579.2.593 1939 Unknown [id number] 2.16.84 0.1.801303.3.579.2.593 1939 Unknown [id number] 2.16.84 0.1.125528.3.579.2.593 1939 Unknown [id number] 2.16.84 0.1.682304.3.579.2.593 1939 Unknown [id number] 2.16.84 0.1.862682.3.579.2.593 1939 Unknown [id number] 2.16.84 0.1.520593.3.579.2.1259 1939 Unknown [id number] 2.16.84 0.1.023237.3.579.2.1259 1939 Unknown [id number] 2.16.84 0.1.794881.3.579.2.1259 1939 Unknown [id number] 2.16.84 0.1.630983.3.579.2.1259 1939 Unknown [id number] 2.16.84 0.1.917128.3.579.2.1259 1939 Unknown [id number] 2.16.84 0.1.360297.3.579.2.1259 1939 Unknown [id number] 2.16.84 0.1.240323.3.579.2.1259 1939 Unknown [id number] 2.16.84 0.1.991205.3.579.2.125 1939 Unknown [id number] 2.16.84 0.1.666683.3.579.2.9 1939 Unknown [id number] 2.16.84 0.1.588147.3.579.2.125 1939 Unknown [id number] 2.16.84 0.1.003023.3.579.2.1259 1939 Unknown [id number] 2.16.84 0.1.861398.3.579.2.1258 1939 Unknown [id number] 2.16.8 40.1.254848.3.579.2.727 1939 Unknown [id number] 2.16.8 40.1.858118.3.579.2.72 1939 Unknown [id number] 2.16.8 40.1.753116.3.579.2.72 1939 Unknown [id number] 2.16.8 40.1.835048.3.579.2.727 1939 Unknown [id number] 2.16.8 40.1.359758.3.579.2.72 1939 Unknown [id number] 2.16.8 40.1.635831.3.579.2.72 1939 Unknown [id number] 2.16.8 40.1.520251.3.579.2.727 1939 Unknown [id number] 2.16.8 40.1.671926.3.579.2.727 1939 Unknown [id number] 2.16.8 40.1.097830.3.579.2.727 1939 Unknown [id number] 2.16.8 40.1.117229.3.579.2.727 1939 Unknown [id number] 2.16.8 40.1.624818.3.579.2.727 1939 Unknown [id number] 2.16.8 40.1.346405.3.579.2.727 1939 Unknown [id number] 2.16.8 40.1.789972.3.579.2.727 1939 Unknown [id number] 2.16.8 40.1.486527.3.579.2.727 1939 Unknown [id number] 2.16.8 40.1.434926.3.579.2.727 1939 Unknown [id number] 2.16.8 40.1.405618.3.579.2.727 1939 Unknown [id number] 2.16.8 40.1.978696.3.579.2.727 1939 Unknown [id number] 2.16.8 40.1.521476.3.579.2.727 1939 Unknown [id number] 2.16. 840.1.543641.3.579.2.1286 1939 Unknown [id number] 2.16. 840.1.984608.3.579.2.1286 1939 Unknown [id number] 2.16. 840.1.441757.3.579.2.1286 1939 Unknown [id number] 2.16. 840.1.739511.3.579.2.1286 1939 Unknown [id number] 2.16. 840.1.507582.3.579.2.1286 1939 Unknown [id number] 2.16. 840.1.847903.3.579.2.1286 1939 Unknown [id number] 2.16. 840.1.879279.3.579.2.1286 1939 Unknown [id number] 2.16. 840.1.223039.3.579.2.1286 1939 Unknown [id number] 2.16. 840.1.599383.3.579.2.1286 1939 Unknown [id number] 2.16.8 40.1.361924.3.579.2.727 Social History Date Type Detail Facility Start: 03-31-2022 End: 08-24-2024 Tobacco smoking status Ex-smoker (finding) [facility] Tobacco smoking status Never [facility] Start: 08-24-2024 End: 04-12-2025 Sex Assigned At Male [facility] Start: 08-24-2023 [facility] consumption [facility] Start: 08-03-2024 End: 04-12-2025 Alcoholic beverage intake Lifetime non-drinker (finding) [facility] [...] 08-24-2024 End: 04-12-2025 History of Social function [facility] Sexual Orientation [facility] Start: 02-26-2010 Sex Male (finding) [facility] Functional Status Date Assessment Result Facility 12-04-2024 Functional Status N/A [facility] 11-02-2024 Functional Status N/A [facility] 10-23-2024 Functional Status N/A [facility] 09-25-2024 Functional Status N/A [facility] 08-08-2024 Functional Status N/A [facility] 10-14-2023 Functional Status N/A [facility] 10-01-2023 Functional Status No [facility] 04-13-2023 Functional Status N/A [facility] 06-09-2022 Functional Status N/A [facility] 05-11-2022 Functional Status N/A [facility] Clinical Notes 03-31-2022 to 05-08-2025 Winnie Herron NP - 05/08/2025 2:00 PM EDOscar Herron NP - 05/08/2025 2:00 PM Endy Herron NP - 05/08/2025 2:00 PM EDOscar Herron NP - 05/08/2025 2:00 PM EDT Note Date & Type Note Facility 05-08-2025 History of Present illness Narrative Associated Problem(s): Benign essential tremor (Continue current regimen.) Primidone was decreased Associated Problem(s): Neurogenic pain (Continue current regimen.) OFF dulox Associated Problem(s): Sequelae of cerebral infarction (Continue ASA, Xeralto - was on eliquis, statin.) Associated Problem(s): Cervical paraspinal muscle spasm (In SNF post stroke) Associated Problem(s): JOSIAH (obstructive sleep apnea) Family will bring CPAP to SNF. Has been noncompliant at home May benefit from re titration study Managed by Dr John in [place] Associated Problem(s): Carotid stenosis, bilateral Plan redo US carotids 2026. Associated Problem(s): Polyneuropathy (Continue current regimen.) Images from the original note were not included. Outpatient Progress Note Prev Appt: Visit date not found No chief complaint on file. Appointment Note -- [facility] Patient is here today for post stroke [...] titration study Managed by Dr John in [place] Carotid stenosis, bilateral Plan redo US carotids 2026. Polyneuropathy (Continue current regimen.) No orders of the defined types were placed in this encounter. Follow-Up - No follow-ups on file. History of Present Illness, Associated Treatments and Results - Dx (JOSIAH) Tx OFF BiPAP @ 31/10 AEs Hx JOSIAH - (Per Dr. John, [facility] Failed Semeiology Circadian Noct oxim PSG _ ([facility]) - _ PAPT ([facility]) - AHI=8.1 @ 31/10 (max pressure) MSLT [...] UBOs Tx ASA AEs Hx Recent adm [facility] for confusion. Now baseline. Images rev'd. No clear cognitive decline. Denies forgetting names, leaving tools/stove on, getting lost, etc. Onset Semeiology Imaging MR brain (02/2025, [facility]) - rev'd with pt - no report sent - on my review, atrophy mod-sev, 8-10 UBOs, most tiny, 2 mod incl R fro & R splenium CC MRA head (02/2025, [facility]) - no stenoses MRA neck (02/2025, [facility]) - no stenoses, dom R vert US carotids (02/2025, [facility]) - < 50% B by velocity, but mod plaque poss causing stenosis Testing Surgery Failed Dx L BASAL GANGLIA STROKE/WMD/ATROPHY Tx (Continue ASA, Xeralto ?, statin.) AEs Hx Onset [id number] AMS and garbled speech Semeiology To [facility] and MRI showed stroke ? Subacute. Eliquis changed to Xeralto. DC to [facility] Skilled therapy. Imaging CT Head (04/2025 [facility] 8mm hypodensity in left caudate nucleus MRI Brain (04/2025 [facility] Subacute left basal ganglia ischemia, mild WMD, moderate atrophy CTA H/N (04/2025 [facility] 50% ICA stenosis B. Moderate M1 right MCA stenosis Testing Echo (04/2025 [facility] EF 65-70%, Aortic sclerosis, severe PHT RSVP [...] Ht 6' Wt 185 lb BMI 25.09 kg/m Smoking Status Former BSA 2.06 m [...] (six) hours if needed for mild pain ALPRAZolam (Xanax) 0.25 MG tablet every 12 [...] the evening and 500 mg before bedtime. metFORMIN (Glucophage) 500 MG tablet [...] taking differently: Take 100 mg by mouth in the morning and 100 mg before bedtime. 1/2 [...] 30 days. (Patient not taking: Reported on 05/08/2025) alogliptin (Nesina) 25 MG [...] encounter medications on file as of 05/08/2025. [facility] Neurology ? [address] ? [place], [place] [address] ? ? fax Neurology ? Clinical Neurophysiology ? Epilepsy ? Sleep Disorders ? Clinical Informatics documented in this encounter [facility] 04-30-2025 Note OR Cardiology - [facility] Subjective Nadir Beth is a 85 y.o. year old male patient being seen for follow up CVA. Patient was in [place] for 4 days. Patient complains of HERNANDEZ and leg swelling, high blood sugars. Patient is at the [facility] for rehab. Patient Active Problem List Diagnosis [...] diuretic therapy. He was admitted to the [facility] in August 2022 due to hyponatremia, hyperkalemia and acute kidney injury, leukocytosis secondary to COVID-19 causing dehydration. I saw him on 05/24/2023 and the office and he had significant evidence of volume overload by exam and echocardiogram. I intensified his diuretic regimen. He ended up getting admitted to the [facility] with acute heart failure [...] On 02/14/2025 he was admitted to the [facility] with altered mental status. brain MRI showed multiple infarcts. He was seen by cardiology consult and Eliquis was changed to Xarelto. He then underwent a transesophageal echocardiogram that showed no evidence of intra cardiac thrombi. The aortic valve stenosis appeared to be severe. He was seen in the emergency room at the [facility] on 03/08/2025 with chest pain episode. He ruled out for myocardial infarction and was discharged. I last saw him on 03/12/2025 and decided to proceed with cardiac catheterization as part of his workup for aortic valve replacement. The procedure is scheduled for May 10, 2025. However in the interim he was admitted on 04/14/2025 to [facility] with apparent acute cerebrovascular accident. MRI showed possible small acute/subacute infarct. The clinical presentation was that of inability to speak. Relatively quickly. He was discharged back to rehab at the [facility] (more content not included)... [facility] 04-30-2025 Note Discharge Summary Admission and Discharge Information Admit Date/Time:04/14/2025 19:37 Admitting Physician - Layne VERUDGO DO Consulting Physician - [facility] [place] Admitting Diagnoses: Anxiety, 04/18/2025 Discharge Diagnoses 1. CVA (cerebrovascular accident), 04/14/2025 2. Atrial fibrillation, 04/14/2025 3. Hypertensive urgency, 04/14/2025 4. Pericardial effusion, 04/14/2025 5. Congestive heart failure, 04/14/2025 6. Chronic kidney disease, 04/14/2025 7. Essential tremor, 04/15/2025 8. DM2 (diabetes mellitus, type 2), 04/14/2025 9. BPH with urinary obstruction, 04/14/2025 10. On deep vein thrombosis (DVT) prophylaxis, 04/14/2025 11. History of DVT in adulthood, 04/14/2025 Altered mental status, 04/14/2025 Anxiety, 04/18/2025 Chronic constipation with overflow, 04/15/2025 Headache, 04/14/2025 Potential stroke, 04/14/2025 Procedure History Colonoscopy (05/11/2022), Cardioversion (01/11/2017), Back, Cholecystectomy, Colonoscopy, History of hernia repair, Tonsillectomy. Hospital Course 85-year-old male who was admitted to the hospital with altered mental status and workup for CVA. Went an MRI of the brain which showed probable T2 shine through and minimal acute/subacute ischemic lacunar infarcts. Patient was resumed on Xarelto/aspirin 81 mg daily. Patient was seen by speech therapy and passed swallow evaluation and placed on regular diet. Consultation was placed to neurology who confirmed acute to subacute embolic ischemic stroke. Recommendation to decrease primidone which patient uses for essential tremor which has potent hepatic enzymatic inducer which could make the Xarelto less effective. Pt was in Atrial fibrillation on admission which is chronic for patient and currently controlled; Pt was initally placed on Heparin gtt until cleared for oral meds. pt already on Xarelto/ASA which was resumed. Pt underwent and echocardiogram which showed normal left ventricular size with moderate left ventricular hypertrophy. EF of 65 to 70%. Aortic valve appeared to be sclerotic with reduced opening. Overall with mild to moderate aortic valve stenosis. Troponin leak secondary to above. Consultation was placed to cardiology who cleared patient for discharge home with recommendations of above and with follow-up as outpatient. Pt did have HTN urgency on admission likely due to acute CVA. Pt w/elevated BNP on admission. Pt w/ acute heart failure /pericardial effusion Today on exam patient is doing well. Vitals labs are stable. PT/OT recommending SNF at discharge. Patient was accepted to the [facility] which patient will transfer there today in stable condition. Case was discussed with Dr. Gomes who is in agreement with current discharge plan. Discharge Time: 40 minutes spent performing discharge services, including reviewing the patient's medications, discussing the plan of care, and providing instructions for follow-up care . Services Consulted Consult to Tele-Neurology - Completed -- 04/14/25 17:03:00 EDT, Stroke, Consult and Co-manage Consult to Wound Care - Completed -- 04/15/25 2:31:00 EDT, left lower leg wound, Consult and Co-manage Physical Exam General: no acute distress Skin: warm, dry Head: no trauma, normocephalic Neck: Trachea midline, no adenopathy, no tenderness Eye: normal conjunctiva, sclera clear ENMT: oral mucosa moist, no pharyngeal erythema or exudate. hearing grossly intact Cardiovascular: Irregular, irregular rhythm, +2/6 ANGELI best heard at aortic position Respiratory: Lungs CTA, respirations non labored , no w/r/r Gastrointestinal: Positive bowel sound, soft, non distended, no tenderness, no guarding. Extremities: no deformity, no trauma Neurological: Alert able to state name. unable to obtain other orientation questions. Speech soft and slightly slurry. Severe dysarthria: unintelligible slurring or out of proportion to dysphasia Weaker RUE/RLE. Psychiatric: Unable to obtain due to mental status. Tests Performed Brain MRI w/o Contrast CT Chest w/o Contrast CT Head or Brain w/o Contrast CTA Head CTA Neck Echo Transthoracic Complete XR Chest Single View Discharge Plan Discharge Disposition Discharge To, Anticipated II - Custodial Unit Discharged to - Other: [facility] Discharge Diet Discharge Diet(s): Calorie Controlled- 1800 Calorie Diet (04/18/25 12:27:00) Discharge Medication List Prescriptions Metamucil 525 mg oral capsule, 1050 mg= 2 cap(s), Oral, Daily, 1 refills Xanax 0.25 mg Tab, 0.25 mg= 1 tab(s), Oral, q8hr, PRN Home aspirin, 81 mg, Oral, Daily B Complex with Vitamin C Gummy oral tablet, chewable, 1 tab(s), Chewed, Daily bacitracin top 500 units/g Oint PACKET, Topical, BID betamethasone-clotrimazole Top 0.05%-1% Crm 15 gram cetirizine 10 mg Tab, 10 mg= 1 tab(s), Oral, Daily clonidine, 0.2 mg, Oral, BID Daily Fiber Sugar-Free, 3 capsules, Oral, Daily dicyclomine, 10 mg, Oral, BID Flomax, 0.4 m (more content not included)... [facility] Comment on above: Result Comment: Elec tronically Signed By: Anai URIARTE\.br\Date and Time Signed: 04/28/25 11:42 EDT\.br\Electronically Co-Signed By: Marc Fajardo DO\.br\Date and Time Co-Signed: 04/30/25 11:03 EDT 04-23-2025 Note Progress Note-Physic zac Assessment/Plan PLAN: 1. CVA (cerebrovascular accident) (I63.9: Cerebral infarction, unspecified) MRI of brain without contrast pending. Vitamin B12, folate, RPR, TSH hemoglobin A1c and fasting lipid panel Aspirin 81 mg resume Allow Permissive hypertension PRN labetalol IV for SBP >200 Speech therapy passed eval and can start Regular Diet Occupational Therapy and physical therapy-pending. Consult neurology-appreciated. Resume Xarelto/ASA 2. Atrial fibrillation (I48.91: Unspecified atrial fibrillation) Currently rate controlled Unsure if history Consult cardiology pending. ASA/Xarelto Heparin gtt DC 'd . Echocardiogram???pending Troponin leak which may be related to cerebral ischemia rather than cardiac process???cardiology consult pending 3. Hypertensive urgency (I16.0: Hypertensive urgency) Allow permissive HTN Labetalol prn for SPB >200 Clonidine, Hydralazine, Labetalol 4. Pericardial effusion (I31.39: Other pericardial effusion (noninflammatory)) IV Lasix given in ED Cardiology consult pending. 5. Congestive heart failure (I50.9: Heart failure, unspecified) BNP 512 on admission. Given 40mg IV lasix in ED. Echo pending. Oxygen prn., Med nebs. Strict I&O daily weight Outside records pending. Spironolactone, Lasix given in ED will continue 6. Chronic kidney disease (N18.9: Chronic kidney disease, unspecified) CKD --may be at baseline CR 1.8 on admission was same as prior lab from 2022 Avoid nephrotoxic meds 7. Essential tremor (G25.0: Essential tremor) Decrease primidone from 100 mg twice daily to 50 mg twice daily per neurology with plans to wean off eventually 8. DM2 (diabetes mellitus, type 2) (E11.9: Type 2 diabetes mellitus without complications) AccuChecks AC/HS w/ ss insulin Jardiance Hold Metformin , Glimepiride, pioglitazone HgA1C pending 9. BPH with urinary obstruction (N40.1: Benign prostatic hyperplasia with lower urinary tract symptoms) Flomax 10. On deep vein thrombosis (DVT) prophylaxis (Z79.899: Other rodent 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 (current) drug therapy) Resume Xarelto 11. History of DVT in adulthood (Z86.718: Personal history of other venous thrombosis and embolism) Xarelto Chronic constipation with overflow (K59.09: Other constipation) Ordered: psyllium, 1,050 mg, Cap, Oral, Daily, Routine, Start date 04/16/25 9:00:00 EDT, 04/15/25 12:49:00 EDT Orders: albuterol, 2.5 mg, 3 mL, Soln-Inh, Inhalation, QID, Routine, Start date 04/15/25 16:00:00 EDT alprazolam, 0.25 mg = 1 tab(s), Tab, Oral, q8hr PRN Anxiety, Routine, Start date 04/15/25 12:47:00 EDT, 04/15/25 12:47:00 EDT aspirin, 81 mg = 1 tab(s), Tab-EC, Oral, Daily, NOW, Start date 04/15/25 12:46:00 EDT, 04/15/25 12:46:00 EDT budesonide, 0.25 mg = 2 mL, Susp-Inh, NEB, BID, Routine, Start date 04/15/25 20:00:00 EDT, 04/15/25 12:46:00 EDT empagliflozin, 25 mg = 2.5 tab(s), Tab, Oral, qAM, Routine, Start date 04/16/25 7:30:00 EDT, 04/15/25 12:47:00 EDT furosemide, 20 mg = 1 tab(s), Tab, Oral, Daily, NOW, Start date 04/15/25 12:48:00 EDT, 04/15/25 12:48:00 EDT loratadine, 10 mg = 1 tab(s), Tab, Oral, Daily, Routine, Start date 04/16/25 9:00:00 EDT, 04/15/25 12:47:00 EDT pantoprazole, 40 mg = 1 tab(s), Tab-DR, Oral, Daily, Routine, Start date 04/16/25 9:00:00 EDT, 04/15/25 12:48:00 EDT primidone, 50 mg = 1 tab(s), Tab, Oral, BID, Routine, Start date 04/15/25 21:00:00 EDT, 04/15/25 12:49:00 EDT rivaroxaban, 15 mg = 1 tab(s), Tab, Oral, qPM, Routine, Start date 04/15/25 16:30:00 EDT, 04/15/25 12:49:00 EDT sitagliptin, 100 mg = 1 tab(s), Tab, Oral, Daily, NOW, Start date 04/15/25 12:49:00 EDT, 04/15/25 12:49:00 EDT spironolactone, 25 mg = 1 tab(s), Tab, Oral, Daily, NOW, Start date 04/15/25 12:49:00 EDT, 04/15/25 12:49:00 EDT tamsulosin, 0.4 mg = 1 cap(s), Cap, Oral, Daily, NOW, Start date 04/15/25 12:49:00 EDT, 04/15/25 12:49:00 EDT Echo Transthoracic Complete PTT Routine Capillary Glucose POC Subjective Pt was seen at the bedside family was present in the room; Pt able to state his name and attempts to follow commands. Difficulty to obtain subjective. Objective Vitals & Measurements T: 37.1 ???C(Axillary) TMIN: 36.3 ???C(Oral) TMAX: 37.3 ???C(Axillary) HR: 89(Monitored) RR: 17 BP: 167/73 SpO2: 99% HT: 182.88 cm WT: 81.3 kg Intake & Output This visit (24 hour periods starting at 07:00 EDT) 04/15/25 * 04/14/25 04/13/25 Total Summary Intake mL -- 7 -- Output mL -- 2,150 -- Fluid Balance -- -2,143 -- Intake (2) furosemide mL -- 4 -- labetalol mL -- 3 -- Total -- 7 -- Output (1) Urine Voided mL -- 2,150 -- Total -- 2,150 -- Counts (0) * This column has not completed the indicated time period. Physical Exam General: no acute distress Skin: warm, dry Head: no trauma, normocephalic Neck: Trachea midline, no adenopathy, no tenderness Eye: normal conjunctiva, sclera clear E (more content not included)... [facility] Comment on above: Result Comment: Elec tronically Signed By: Anai URIARTE\.br\Date and Time Signed: 04/15/25 12:52 EDT\.br\Electronically Co-Signed By: Grey Carl III, DO.br\Date and Time Co-Signed: 04/23/25 07:20 EDT 04-22-2025 Note Microbiology PROCEDURE: Blood Culture Charcoal [R1] SOURCE: Blood BODY SITE: Hand L COLLECTED DATE/TIME: 04/14/2025 18:05 EDT RECEIVED DATE/TIME: 04/14/2025 18:40 EDT START DATE/TIME: 04/14/2025 18:40 EDT FREE TEXT SOURCE: Indu Slaughter, Rivas Griggs M.D., Astrit H FINAL REPORTS Final Report [] Verified Date/Time: 04/21/2025 21:00 EDT No growth at 7 days. Performing Locations R1: This test was performed at: [facility], [address] [place] [address], [address] [place] [address], [address] [place] [address] Comment on above: Performed By: #### 1 [id number] #### [facility] [address] [place] [address] 04-22-2025 Note Microbiology PROCEDURE: Blood Culture Charcoal [R1] SOURCE: Blood BODY SITE: Hand R COLLECTED DATE/TIME: 04/14/2025 18:04 EDT RECEIVED DATE/TIME: 04/14/2025 18:41 EDT START DATE/TIME: 04/14/2025 18:41 EDT FREE TEXT SOURCE: Indu Slaughter, Rivas Griggs M.D., Astrit H FINAL REPORTS Final Report [] Verified Date/Time: 04/21/2025 21:00 EDT No growth at 7 days. Performing Locations R1: This test was performed at: [facility], [address] [place] [address], [address] [place] [address], [address] [place] [address] Comment on above: Performed By: #### 1 [id number] #### [facility] [address] [place] [address] 04-21-2025 Note Microbiology PROCEDURE: Blood Culture Charcoal [R1] SOURCE: Blood BODY SITE: Hand L COLLECTED DATE/TIME: 04/14/2025 18:05 EDT RECEIVED DATE/TIME: 04/14/2025 18:40 EDT START DATE/TIME: 04/14/2025 18:40 EDT FREE TEXT SOURCE: Peripheral vein site #2 Indu Slaughter, Rivas Griggs M.D., Astrit H FINAL REPORTS Final Report [] Verified Date/Time: 04/21/2025 21:00 EDT No growth at 7 days. Performing Locations R1: This test was performed at: [facility], [address] [place] [address], [id number] [place] [address], [facility] Comment on above: Performed By: #### 1 [id number] #### [facility] [address] [place] [id number] 04-21-2025 Note Microbiology PROCEDURE: Blood Culture Charcoal [R1] SOURCE: Blood BODY SITE: Hand R COLLECTED DATE/TIME: 04/14/2025 18:04 EDT RECEIVED DATE/TIME: 04/14/2025 18:41 EDT START DATE/TIME: 04/14/2025 18:41 EDT FREE TEXT SOURCE: Peripheral vein site #1 Indu Slaughter, Rivas Griggs M.D., Rivas Hill FINAL REPORTS Final Report [] Verified Date/Time: 04/21/2025 21:00 EDT No growth at 7 days. Performing Locations R1: [facility], [address] [place] [address], [id number] [place] [address], [facility] Comment on above: Performed By: #### 1 [id number] #### [facility] [address] [place] [address] 04-18-2025 Note GetWell Understands Education Yes GetWell Education Video Statins: Should You Take Them to Lower Your Risk? GetWell Learning Participants Patient [facility] 04-18-2025 Note GetWell Education Vi maria guadalupe After a Stroke: Your Self-Care Plan GetWell Learning Participants Patient GetWell Understands Education Yes [facility] 04-18-2025 Note GetWell Understands Education Yes GetWell Education Video After a Stroke: Taking an Antiplatelet GetWell Learning Participants Patient [facility] 04-18-2025 Note GetWell Education Vi maria guadalupe After a Stroke: Taking an Antiplatelet GetWell Learning Participants Patient GetWell Understands Education Yes [facility] 04-18-2025 Note GetWell Understands Education Yes GetWell Education Video Your Hospital Stay: Moving to Another Care Facility GetWell Learning Participants Patient [facility] 04-18-2025 Note GetWell Understands Education GetWell Education Video Stroke: Fast facts GetWell Learning Participants [facility] 04-18-2025 Note GetWell Understands Education GetWell Education Video Stroke: Fast facts GetWell Learning Participants [facility] 04-18-2025 Note GetWell Understands Education Yes GetWell Education Video After a Hospital Stay: Managing Appointments GetWell Learning Participants Patient [facility] 04-18-2025 Note GetWell Understands Education Yes GetWell Education Video Preventing Falls in the Hospital GetWell Learning Participants Patient [facility] 04-18-2025 Note GetWell Understands Education Yes GetWell Education Video Avoiding Infections in the Hospital GetWell Learning Participants Patient [facility] 04-18-2025 Note GetWell Learning Par ticipants Patient GetWell Understands Education Yes GetWell Education Video What Is a Stroke? [facility] 04-17-2025 Evaluation + Plan note Extrac fernando from: Title:APSO Note Author:Roro URIARTE Date:04/17/25 PLAN: 1. CVA (cerebrovascular accident) (I63.9: Cerebral infarction, unspecified) MRI of brain positive for lacunar infarcts. PRN labetalol IV for SBP >200 Speech therapy -regular diet Occupational Therapy/ physical therapy--recommending SNF Consult neurology-appreciated. Continue Xarelto/ASA BP control 2. Atrial fibrillation (I48.91: Unspecified atrial fibrillation) Currently rate controlled Unsure if history Consult cardiology appreciated. ASA/Xarelto Resume home Labatelol. Heparin gtt DC 'd . Echocardiogram showing EF 65-70% with moderate LV hypertrophy and right ventricle dilated. Sclerotic aortic valve with moderate to severe TR. Troponin leak secondary to mismatch demand supply. cardiology consult appreciated. Per family today patient is pending cardiac cath at [facility] towards the end of this month for evaluation for Watchman device. 3. Hypertensive urgency (I16.0: Hypertensive urgency) Allow permissive HTN Labatelol, Clonidine, Lasix, Spironolactone. 4. Pericardial effusion (I31.39: Other pericardial effusion (noninflammatory)) IV Lasix given in ED Cardiology consult appreciated Echo see #2 TSH normal. 5. Congestive heart failure (I50.9: Heart failure, unspecified) BNP 512 on admission. Given 40mg IV Lasix in ED. --now compensated. Echo See #2 Oxygen prn., Med nebs. Strict I&O daily weight Outside records pending. Spironolactone, Lasix Chest x-ray showing bilateral pleural effusions-consult pulm if needed. 6. Chronic kidney disease (N18.9: Chronic kidney disease, unspecified) CKD --may be at baseline CR 1.8 on admission was same as prior lab from 2022 Avoid nephrotoxic meds Improving. 7. Essential tremor (G25.0: Essential tremor) Decrease primidone from 100 mg twice daily to 50 mg twice daily per neurology with plans to wean off eventually 8. DM2 (diabetes mellitus, type 2) (E11.9: Type 2 diabetes mellitus without complications) AccuChecks AC/HS w/ ss insulin Jardiance Hold Metformin , Glimepiride, pioglitazone HgA1C 9.9 consider long acting insulin 9. BPH with urinary obstruction (N40.1: Benign prostatic hyperplasia with lower urinary tract symptoms) Flomax 10. On deep vein thrombosis (DVT) prophylaxis (Z79.899: Other correction (current) drug therapy) Resume Xarelto 11. History of DVT in adulthood (Z86.718: Personal history of other venous thrombosis and embolism) Xarelto Extracted from: Title:APSO Note-neurology Author:Nadir Quinones RN Date:04/17/25 ASSESSMENT: Acute to subacute embolic ischemic stroke. MRI of his brain shows scattered punctate foci of diffusion restriction within the left basal ganglia and left anterior periventricular area, the right frontal white matter, and in the right aspect of the splenium of the corpus callosum which has a ring shaped appearance. There is some T2 shine through that suggest that these are past the acute phase. I suspect these are cardioembolic and related to his atrial fibrillation, despite his rivaroxaban. He also takes an aspirin. He has a statin intolerance. He is on of primidone for essential tremor which is a potent hepatic enzymatic inducer and might render the rivaroxaban less effective. Transthoracic echocardiogram looks consistent with a heart failure picture, with EF 65 to 70% with a dilated dysfunctional right ventricle, moderate aortic insufficiency, and RVSP severely elevated with evidence of pericardial effusion. The left atrium is moderate to severely dilated, consistent with his atrial fibrillation. PLAN: 1. Continue rivaroxaban for the atrial fibrillation 2. Continue the primidone at 50 mg twice daily (home dose 100 mg twice daily) with plans of eventual weaning and discontinuation in the outpatient setting 3. Continue the aspirin, a home medication 4. No other recommendations at this time 1. CVA (cerebrovascular accident) (I63.9: Cerebral infarction, unspecified) 2. Atrial fibrillation (I48.91: Unspecified atrial fibrillation) 3. Hypertensive urgency (I16.0: Hypertensive urgency) 4. Pericardial effusion (I31.39: Other pericardial effusion (noninflammatory)) 5. Congestive heart failure (I50.9: Heart failure, unspecified) 6. Chronic kidney disease (N18.9: Chronic kidney disease, unspecified) 7. Essential tremor (G25.0: Essential tremor) 8. DM2 (diabetes mellitus, type 2) (E11.9: Type 2 diabetes mellitus without complications) 9. BPH with urinary obstruction (N40.1: Benign prostatic hyperplasia with lower urinary tract symptoms) 10. On deep vein thrombosis (DVT) prophylaxis (Z79.899: Other rodent 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 (current) drug therapy) 11. History of DVT in adulthood (Z86.718: Personal history of other venous thrombosis and embolism) Chronic constipation with overflow (K59.09: Other constipation) Extracted from: Title:Progress/SOAP Note Author:Hanna GUSTAFSON, [facility] Date:04/16/25 1. CVA (cerebrovascular acci dent) (I63.9: Cerebral infarction, unspecified) 2. Atrial fibrillation (I48.91: Unspecified atrial fibrillation) 3. Hypertensive urgency (I16.0: Hypertensive urgency) 4. Pericardial effusion (I31.39: Other pericardial effusion (noninflammatory)) 5. Congestive heart failure (I50.9: Heart failure, unspecified) 6. Chronic kidney disease (N18.9: Chronic kidney disease, unspecified) 7. Essential tremor (G25.0: Essential tremor) 8. DM2 (diabetes mellitus, type 2) (E11.9: Type 2 diabetes mellitus without complications) 9. BPH with urinary obstruction (N40.1: Benign prostatic hyperplasia with lower urinary tract symptoms) 10. On deep vein thrombosis (DVT) prophylaxis (Z79.899: Other correction (current) drug therapy) 11. History of DVT in adulthood (Z86.718: Personal history of other venous thrombosis and embolism) Chronic constipation with overflow (K59.09: Other constipation) Extracted from: Title:APSO Note Author:PEPE CADE Sheajeremy sweet Date:04/16/25 PLAN: 1. CVA (cerebrovascular accident) (I63.9: Cerebral infarction, unspecified) MRI of brain without contrast pending. Aspirin 81 mg resume PRN labetalol IV for SBP >200 Speech therapy /Occupational Therapy/ physical therapy Consult neurology-appreciated. Resume Xarelto/ASA BP control today 2. Atrial fibrillation (I48.91: Unspecified atrial fibrillation) Currently rate controlled Unsure if history Consult cardiology appreciated. ASA/Xarelto Resume home Labatelol. Heparin gtt DC 'd . Echocardiogram pending Troponin leak secondary to mismatch demand supply. cardiology consult appreciated. 3. Hypertensive urgency (I16.0: Hypertensive urgency) Allow permissive HTN Labatelol, Clonidine, Lasix, Spironolactone. 4. Pericardial effusion (I31.39: Other pericardial effusion (noninflammatory)) IV Lasix given in ED Cardiology consult appreciated Echo pending. TSH normal. 5. Congestive heart failure (I50.9: Heart failure, unspecified) BNP 512 on admission. Given 40mg IV Lasix in ED. --now compensated. Echo pending. Oxygen prn., Med nebs. Strict I&O daily weight Outside records pending. Spironolactone, Lasix given in ED will continue 6. Chronic kidney disease (N18.9: Chronic kidney disease, unspecified) CKD --may be at baseline CR 1.8 on admission was same as prior lab from 2022 Avoid nephrotoxic meds 7. Essential tremor (G25.0: Essential tremor) Decrease primidone from 100 mg twice daily to 50 mg twice daily per neurology with plans to wean off eventually 8. DM2 (diabetes mellitus, type 2) (E11.9: Type 2 diabetes mellitus without complications) AccuChecks AC/HS w/ ss insulin Jardiance Hold Metformin , Glimepiride, pioglitazone HgA1C pending 9. BPH with urinary obstruction (N40.1: Benign prostatic hyperplasia with lower urinary tract symptoms) Flomax 10. On deep vein thrombosis (DVT) prophylaxis (Z79.899: Other correction (current) drug therapy) Resume Xarelto 11. History of DVT in adulthood (Z86.718: Personal history of other venous thrombosis and embolism) Xarelto Extracted from: Title:APSO Note- Neurology Author:Ascencion Lancaster RN Date:04/16/25 ASSESSMENT: His presentation is very concerning for an acute left hemispheric ischemic stroke. There is some hypodensity that appears to be evolving in the left frontal white matter near the head of the caudate on his CT scan. His atrial fibrillation is probably his biggest stroke risk factor, and he also has severe hypertension. Etiology for his presumed stroke will be determined based on the appearance on MRI. He is on rivaroxaban for atrial fibrillation and also takes aspirin. He has a statin intolerance. He is on of primidone for essential tremor which is a potent hepatic enzymatic inducer and might render the rivaroxaban less effective. PLAN: 1. MRI brain pending 2. Transthoracic echocardiogram pending 3. Continue rivaroxaban for the atrial fibrillation 4. Continue the primidone at 50 mg twice daily (home dose 100 mg twice daily) with plans of eventual weaning and discontinuation 5. Further recommendations to foll ow 1. CVA (cerebrovascular accident) (I63.9: Cerebral infarction, unspecified) 2. Atrial fibrillation (I48.91: Unspecified atrial fibrillation) 3. Hypertensive urgency (I16.0: Hypertensive urgency) 4. Pericardial effusion (I31.39: Other pericardial effusion (noninflammatory)) 5. Congestive heart failure (I50.9: Heart failure, unspecified) 6. Chronic kidney disease (N18.9: Chronic kidney disease, unspecified) 7. Essential tremor (G25.0: Essential tremor) 8. DM2 (diabetes mellitus, type 2) (E11.9: Type 2 diabetes mellitus without complications) 9. BPH with urinary obstruction (N40.1: Benign prostatic hyperplasia with lower urinary tract symptoms) 10. On deep vein thrombosis (DVT) prophylaxis (Z79.899: Other correction (current) drug therapy) 11. History of DVT in adulthood (Z86.718: Personal history of other venous thrombosis and embolism) Chronic constipation with overflow (K59.09: Other constipation) Extracted from: Title:Consult Note Author:Hanna GUSTAFSON, Rebeca Rod e:04/15/25 1. CVA (cerebrovascular acci dent) (I63.9: Cerebral infarction, unspecified) Workup in progress 2. Atrial fibrillation (I48.91: Unspecified atrial fibrillation) Patient did have a history of A-fib as mentioned above. He was on Eliquis and then was switched recently to Xarelto he has been compliant with Xarelto. Will continue rate control for now. Treat acute issues. 3. Hypertensive urgency (I16.0: Hypertensive urgency) Please document his blood pressure home medications. Resume them as feasible. Please also check whether he is on clonidine at he might be withdrawing from that. If he is on clonidine as an outpatient and cannot take p.o. meds you could start clonidine patch to avoid withdrawing symptoms. Goal of blood pressure control per neurology. 4. Pericardial effusion (I31.39: Other pericardial effusion (noninflammatory)) That was reported on CAT scan. Will obtain 2D echo. Patient seems to be not in tamponade. Check TSH if not done recently. 5. Congestive heart failure (I50.9: Heart failure, unspecified) Will obtain echo seems to be compensated blood pressure control 6. Chronic kidney disease (N18.9: Chronic kidney disease, unspecified) Avoid nephrotoxic agents 7. DM2 (diabetes mellitus, type 2) (E11.9: Type 2 diabetes mellitus without complications) 8. BPH with urinary obstruction (N40.1: Benign prostatic hyperplasia with lower urinary tract symptoms) 9. On deep vein thrombosis (DVT) prophylaxis (Z79.899: Other rodent 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 (current) drug therapy) 10. History of DVT in adulthood (Z86.718: Personal history of other venous thrombosis and embolism) Elevated troponin likely due to mismatch demand supply. Continue current management. Continue to trend. Obtain 2D echo. Treat acute issues. Aggressive risk factor control. Thank you for the consult discussed with the patient family at bedside. Extracted from: Title:Consult Note-Neurology Author:Riaz OTERO, Randal Fernandez Date:04/15/25 ASSESSMENT: His presentation is very concerning for an acute left hemispheric ischemic stroke. There is some hypodensity that appears to be evolving in the left frontal white matter near the head of the caudate on his CT scan. His atrial fibrillation is probably his biggest stroke risk factor, and he also has severe hypertension. Etiology for his presumed stroke will be determined based on the appearance on MRI. He is on rivaroxaban for atrial fibrillation and also takes aspirin. He has a statin intolerance. He is on of primidone for essential tremor which is a potent hepatic enzymatic inducer and might render the rivaroxaban less effective. PLAN: 1. MRI brain pending 2. Transthoracic echocardiogram pending 3. He is currently on a heparin drip. If he is safe to swallow his Xarelto then he can just remain on his oral anticoagulant from my standpoint. He does have a troponin leak, which may be related to cerebral ischemia rather than any cardiac process. 4. Speech therapy evaluation 5. Once no longer n.p.o., decrease the home primidone 100 mg twice daily dosing to 50 mg twice daily with plans to wean off entirely eventually 6. Further recommendations to follow 1. CVA (cerebrovascular accident) (I63.9: Cerebral infarction, unspecified) 2. Atrial fibrillation (I48.91: Unspecified atrial fibrillation) 3. Hypertensive urgency (I16.0: Hypertensive urgency) 4. Pericardial effusion (I31.39: Other pericardial effusion (noninflammatory)) 5. History of DVT in adulthood (Z86.718: Personal history of other venous thrombosis and embolism) 6. Congestive heart failure (I50.9: Heart failure, unspecified) 7. Chronic kidney disease (N18.9: Chronic kidney disease, unspecified) 8. BPH with urinary obstruction (N40.1: Benign prostatic hyperplasia with lower urinary tract symptoms) 9. DM2 (diabetes mellitus, type 2) (E11.9: Type 2 diabetes mellitus without complications) 10. On deep vein thrombosis (DVT) prophylaxis (Z79.899: Other rodent 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 (current) drug therapy) Other obstructive and reflux uropathy (N13.8: Other obstructive and reflux uropathy) Pleural effusion (J90: Pleural effusion, not elsewhere classified) Extracted from: Title:Admission H & P Author:Layne VERDUGO DO Date:04/14/25 1. CVA (cerebrovascular acci dent) (I63.9: Cerebral infarction, unspecified) Interventional neurology was consulted from the emergency department at [facility]. They recommended patient started on a low intensity heparin drip. See ED note for details. Will maintain patient on heparin drip for time being. Will check MRI of brain without contrast. Will check vitamin B12, folate, RPR, TSH with morning labs. Will check hemoglobin A1c and fasting lipid panel for risk stratification. Aspirin 81 mg p.o. daily. Permissive hypertension, labetalol IV as ordered below. Will have speech therapy, Occupational Therapy and physical therapy work with patient. Patient will be n.p.o. for time being because of inability understand. Consult neurology. 2. Atrial fibrillation (I48.91: Unspecified atrial fibrillation) Will need to clarify with family if patient has a history of A-fib. Cardiology will be consulted. Patient is on heparin drip for time being. Currently rate controlled. 3. Hypertensive urgency (I16.0: Hypertensive urgency) Permissive hypertension. Labetalol IV as needed. 4. Pericardial effusion (I31.39: Other pericardial effusion (noninflammatory)) Patient was given 1 dose of Lasix in the emergency department. Will await cardiology input. 5. History of DVT in adulthood (Z86.718: Personal history of other venous thrombosis and embolism) Heparin drip for time being. 6. Congestive heart failure (I50.9: Heart failure, unspecified) Will need to get patient's outside medical history to determine baseline. Supportive care for time being. Oxygen as needed. Albuterol neb as needed. 7. Chronic kidney disease (N18.9: Chronic kidney disease, unspecified) Elevated creatinine at admission. Will recheck with morning labs. CKD noted in medical history. Will avoid unnecessary nephrotoxic drugs. No recent labs in our computer system. Will need to contact PCP to get a result. Last creatinine 1.8 in our system. 8. BPH with urinary obstruction (N40.1: Benign prostatic hyperplasia with lower urinary tract symptoms) Will resume alpha-charlotte when able to take oral medications. 9. DM2 (diabetes mellitus, type 2) (E11.9: Type 2 diabetes mellitus without complications) Sliding scale insulin constant every 6 hours. 10. On deep vein thrombosis (DVT) prophylaxis (Z79.899: Other correction (current) drug therapy) SCD, heparin Orders: albuterol, 2.5 mg, 3 mL, Soln-Inh, Inhalation, q2hr PRN Shortness of breath or wheezing, Routine, Start date 04/14/25 22:02:00 EDT diazepam, 2.5 mg = 0.5 mL, Injection, IV Push, Once PRN Agitation, Routine, Start date 04/14/25 21:58:00 EDT, 04/14/25 21:58:00 EDT glucose, 50 mL, Soln-IV, IV Push, Once PRN Blood glucose, Routine, Start date 04/14/25 22:04:00 EDT heparin 25,000 unit(s) [12 unit/kg/hr] + Dextrose 5% in Water intravenous solution 500 mL, 500 mL, IV, 20.28 mL/hr, Routine, Start date 04/14/25 22:26:00 EDT, 24.7 hour(s), Total volume (mL): 500, Titrate per low intensity heparin protocol (Table 3 on reference text), 84.5 kg, Max INITIAL rate = 1000 unit(s)/hr (20 mL/hr). May go above this... insulin lispro, 0-10 Unit(s), Injection-Insulin, SubCutaneous, q6hrFT, Routine, Start date 04/15/25 0:00:00 EDT labetalol, 5 mg = 1 mL, Injection, IV Push, q15min PRN Other (see comment), Routine, Start date 04/14/25 21:58:00 EDT, 04/14/25 21:58:00 EDT ondansetron, 4 mg = 2 mL, Injection, IV Push, q6hr PRN Nausea/Vomiting, Routine, Start date 04/14/25 21:55:00 EDT, 04/14/25 21:55:00 EDT Ambulate with Assistance Basic Metabolic Panel Below the Knee Intermittent Pneumatic Compression Device Cardiac Monitoring Communication Order Communication Order Physician to Nursing Communication Order Physician to Nursing Communication Order Physician to Nursing Communication Order Physician to Nursing Communication Order Physician to Nursing Communication Order Physician to Nursing Communication Order Physician to Nursing Consult to Cardiology Consult to Neurology Consult to Provider Dysphagia Screen Evaluate Need For Continued Telemetry Folate Level Hemoglobin HgbA1c Hypoglycemia Protocol Responsive Patient Hypoglycemia Protocol Unresponsive Patient Lipid Panel Magnesium Level MRI Brain w/o Contrast Neurological Assessment Neurological Assessment Notify Provider Notify Provider Notify Provider Notify Provider Notify Provider Vital Signs Notify Provider Vital Signs NPO Diet Occupational Therapy Evaluate Patient, Develop a Plan of Care and Implement Plan Oxygen Protocol Physical Therapy Evaluate Patient, Develop a Plan of Care and Implement Plan Platelet Count Platelet Count Precautions Resuscitation Status - Full Routine Capillary Glucose POC RPR with Conf Rfx Speech Language Pathology Evaluate Patient, Develop a Plan of Care and Implement Plan Speech Language Pathology Swallow Eval; Evaluate Pt, Develop a Plan of Care & Implement Plan Stroke Education Stroke Quality Measures Troponin TSH With T4fr Reflex Vital Signs Vitamin B12 Level Weight Anticipated stay greater than 2 midnights due to above Addendum by Lupillo VERDUGO DO on April 15, 2025 02:29:09 EDT Left elliott with 3 mm open ulcer, no erythema or exudate. - POA. will consult [facility]. bacitracin bid. Extracted from: Title:ED Note Author:Indu Slaughter, Rivas Gillis te:04/14/25 1. CVA (cerebrovascular acci dent) (I63.9: Cerebral infarction, unspecified) 2. Congestive heart failure (I50.9: Heart failure, unspecified) 3. Chronic kidney disease (N18.9: Chronic kidney disease, unspecified) 4. Hypertensive urgency (I16.0: Hypertensive urgency) Orders: heparin 25,000 unit(s) [12 unit/kg/hr] + Dextrose 5% in Water intravenous solution 500 mL, 500 mL, IV, 20.28 mL/hr, Routine, Start date 04/14/25 18:51:00 EDT, 24.7 hour(s), Total volume (mL): 500, Titrate per low intensity heparin protocol (Table 3 on reference text), 84.5 kg, Max INITIAL rate = 1000 unit(s)/hr (20 mL/hr). May go above this... B-Type Natriuretic Peptide Blood Culture Charcoal Blood Culture Charcoal Consult to Tele-Neurology CT Chest w/o Contrast CTA Head CTA Neck Lactic Acid Addendum by Jodi Doll DO on April 14, 2025 19:50:02 EDT Patient signed out pending CT imaging results CT imaging results show bilateral pleural effusions with a pericardial effusion. No evidence of lung mass. Discussed findings with patient and family they are understanding. I did discuss the case with the hospitalist accepts the patient for admission. Patient's blood pressure did elevate to the 240s over 110s is given 40 mg of IV Lasix is also given 5 mg of labetalol for blood pressure control. Additional diagnosis: Pleural effusion, pericardial effusion Future Appointments Appointment Date:06/11/2025 11:40:00 AM Scheduled Provider:LU OLMEDO PA-C Location:[facility] Appointment Type:URO Office Visit [facility] 06-03-2025 NoteProgress Note-Physician Assessment/Plan PLAN: 1. CVA (cerebrovascular accident) (I63.9: Cerebral infarction, unspecified) MRI of brain positive for lacunar infarcts. PRN labetalol IV for SBP >200 Speech therapy -regular diet Occupational Therapy/ physical therapy--recommending SNF Consult neurology-appreciated. Continue Xarelto/ASA BP control 2. Atrial fibrillation (I48.91: Unspecified atrial fibrillation) Currently rate controlled Unsure if history Consult cardiology appreciated. ASA/Xarelto Resume home Labatelol. Heparin gtt DC 'd . Echocardiogram???showing EF 65-70% with moderate LV hypertrophy and right ventricle dilated. Sclerotic aortic valve with moderate to severe TR. Troponin leak secondary to mismatch demand supply. cardiology consult appreciated. Per family today patient is pending cardiac cath at [facility] towards the end of this month for evaluation for Watchman device. 3. Hypertensive urgency (I16.0: Hypertensive urgency) Allow permissive HTN Labatelol, Clonidine, Lasix, Spironolactone. 4. Pericardial effusion (I31.39: Other pericardial effusion (noninflammatory)) IV Lasix given in ED Cardiology consult appreciated Echo see #2 TSH normal. 5. Congestive heart failure (I50.9: Heart failure, unspecified) BNP 512 on admission. Given 40mg IV Lasix in ED. --now compensated. Echo See #2 Oxygen prn., Med nebs. Strict I&O daily weight Outside records pending. Spironolactone, Lasix Chest x-ray showing bilateral pleural effusions-consult pulm if needed. 6. Chronic kidney disease (N18.9: Chronic kidney disease, unspecified) CKD --may be at baseline CR 1.8 on admission was same as prior lab from 2022 Avoid nephrotoxic meds Improving. 7. Essential tremor (G25.0: Essential tremor) Decrease primidone from 100 mg twice daily to 50 mg twice daily per neurology with plans to wean off eventually 8. DM2 (diabetes mellitus, type 2) (E11.9: Type 2 diabetes mellitus without complications) AccuChecks AC/HS w/ ss insulin Jardiance Hold Metformin , Glimepiride, pioglitazone HgA1C 9.9 consider long acting insulin 9. BPH with urinary obstruction (N40.1: Benign prostatic hyperplasia with lower urinary tract symptoms) Flomax 10. On deep vein thrombosis (DVT) prophylaxis (Z79.899: Other correction (current) drug therapy) Resume Xarelto 11. History of DVT in adulthood (Z86.718: Personal history of other venous thrombosis and embolism) Xarelto Subjective Patient seen at bedside this morning. No acute issues last night. Patient is alert sitting up in bed feeding himself. Able to move all extremities no issues. Speech is more clear today. Family at bedside updated on test results and plan of care. Patient denies any headache, dizziness, fevers, chills, chest pain or shortness of breath. Objective Vitals & Measurements T: 36.6 ???C(Axillary) TMIN: 36.5 ???C(Axillary) TMAX: 36.6 ???C(Oral) HR: 86(Monitored) RR: 18 BP:181/83 SpO2: 92% Intake & Output This visit (24 hour periods starting at 07:00 EDT) 04/17/25 * 04/16/25 04/15/25 Total Summary Intake mL -- 400 -- Output mL -- 950 250 Fluid Balance -- -550 -250 Intake (1) Oral Intake mL -- 400 -- Total -- 400 -- Output (1) Urine Voided mL -- 950 250 Total -- 950 250 Counts (0) * This column has not completed the indicated time period. Physical Exam General: no acute distress Skin: warm, dry Head: no trauma, normocephalic Neck: Trachea midline, no adenopathy, no tenderness Eye: normal conjunctiva, sclera clear ENMT: oral mucosa moist, no pharyngeal erythema or exudate. hearing grossly intact Cardiovascular: Irregular, irregular rhythm, +2/6 ANGELI best heard at aortic position Respiratory: Lungs CTA, respirations non labored , no w/r/r Gastrointestinal: Positive bowel sound, soft, non distended, no tenderness, no guarding. Extremities: no deformity, no trauma Neurological: Alert able to state name. unable to obtain other orientation questions. Speech soft and slightly slurry. Severe dysarthria: unintelligible slurring or out of proportion to dysphasia Weaker RUE/RLE. Psychiatric: Unable to obtain due to mental status Lab Results WBC: 9.9 E9/L (04/17/25 06:01:00) RBC: 4.1 E12/L Low (04/17/25 06:01:00) HGB: 11.2 gm/dL Low (04/17/25 06:01:00) Hct: 34.9 % Low (04/17/25 06:01:00) MCV: 85.4 fL (04/17/25 06:01:00) MCH: 27.5 pg (04/17/25 06:01:00) MCHC: 32.2 gm/dL (04/17/25 06:01:00) RDW: 20.3 % High (04/17/25 06:01:00) Platelet: 237 E9/L (04/17/25 06:01:00) MPV: 9.1 fL (04/17/25 06:01:00) Neutro Auto: 78 % High (04/17/25 06:01:00) Lymph Auto: 7.1 % Low (04/17/25 06:01:00) Hardee Auto: 13.7 % (04/17/25 06:01:00) Eos Auto: 0.6 % (04/17/25 06:01:00) Basophil Auto: 0.6 % (04/17/25 06:01:00) Neutro Absolute: 7.7 E9/L High (04/17/25 06:01:00) Lymph Absolute: 0.7 E9/L Low (04/17/25 06:01:00) Hardee Absolute: 1.4 E9/L High (06 (more content not included)...[facility] MemorialComment on above:Result Comment: Electronically Signed By: Anai URIARTE\.br\Date and Time Signed: 04/17/25 08:59 EDT\.br\Electronically Co-Signed By: Marc Fajardo DO\.br\Date and Time Co- Signed: 04/17/25 13:29 [id number] NoteProgress Note-Physician Assessment/Plan ASSESSMENT: Acute to subacute embolic ischemic stroke. MRI of his brain shows scattered punctate foci of diffusion restriction within the left basal ganglia and left anterior periventricular area, the right frontal white matter, and in the right aspect of the splenium of the corpus callosum which has a ring shaped appearance. There is some T2 shine through that suggest that these are past the acute phase. I suspect these are cardioembolic and related to his atrial fibrillation, despite his rivaroxaban. He also takes an aspirin. He has a statin intolerance. He is on of primidone for essential tremor whichis a potent hepatic enzymatic inducer and might render the rivaroxaban less effective. Transthoracic echocardiogram looks consistent with a heart failure picture, with EF 65 to 70% with a dilated dysfunctional right ventricle, moderate aortic insufficiency, and RVSP severely elevated with evidence of pericardial effusion. The left atrium is moderate to severely dilated, consistent with his atrial fibrillation. PLAN: 1. Continue rivaroxaban for the atrial fibrillation 2. Continue the primidone at 50 mg twice daily (home dose 100 mg twice daily) with plans of eventual weaning and discontinuation in the outpatient setting 3. Continue the aspirin, a home medication 4. No other recommendations at this time 1. CVA (cerebrovascular accident) (I63.9: Cerebral infarction, unspecified) 2. Atrial fibrillation (I48.91: Unspecified atrial fibrillation) 3. Hypertensive urgency (I16.0: Hypertensive urgency) 4. Pericardial effusion (I31.39: Other pericardial effusion (noninflammatory)) 5. Congestive heart failure (I50.9: Heart failure, unspecified) 6. Chronic kidney disease (N18.9: Chronic kidney disease, unspecified) 7. Essential tremor (G25.0: Essential tremor) 8. DM2 (diabetes mellitus, type 2) (E11.9: Type 2 diabetes mellitus without complications) 9. BPH with urinary obstruction (N40.1: Benign prostatic hyperplasia with lower urinary tract symptoms) 10. On deep vein thrombosis (DVT) prophylaxis (Z79.899: Other rodent 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 (current) drug therapy) 11. History of DVT in adulthood (Z86.718: Personal history of other venous thrombosis and embolism) Chronic constipation with overflow (K59.09: Other constipation) Subjective His family members remarked that he continues to improve in terms of language function. No new symptoms. No overnight events. Nothing to add to review of systems. Objective Vitals & Measurements T: 36.6 ???C(Axillary) TMIN: 36.5 ???C(Axillary) TMAX: 36.6 ???C(Oral) HR: 85(Monitored) RR: 18 BP:172/82 SpO2: 91% Intake & Output This visit (24 hour periods starting at 07:00 EDT) 04/17/25 * 04/16/25 04/15/25 Total Summary Intake mL -- 400 -- Output mL -- 950 250 Fluid Balance -- -550 -250 Intake (1) Oral Intake mL -- 400 -- Total -- 400 -- Output (1) Urine Voided mL -- 950 250 Total -- 950 250 Counts (0) * This column has not completed the indicated time period. Physical Exam GEN: General appearance normal. Well-kempt. No distress. No visualized deformities or trauma. CARDIO/VASC: Limbs without significant edema and appear well-perfused. PULM: Normal work of breathing. SKIN: Visualized skin is intact and without lesions aside from age-related findings. MS: Affect is normal. Patient is alert and generally oriented. Normal attention. LANG: Speech soft but clear and still tending to speak in short phrases. Following commands. EYES: Pupils equal. Ocular motility full. No pathologic nystagmus. CN: Facial sensation normal. Hearing acuity normal. Face without droop and with normal motor function. MOTOR: Muscle bulk normal. Muscle tone normal. No hemiparesis apparent. No significant postural tremors. REFLEXES: No pathologic reflexes. SENSORY: Light touch intact. CEREBELLAR: No limb ataxia. [1] Date/Time:04/17/25 0918 Level of Consciousness: Alert = 0 Current month and age: Answers both correctly = 0 Open and close eyes/assembler movement release hand: Obeys both correctly = 0 Best gaze: Normal = 0 Visual field testing: No visual field loss = 0 Facial paresis: Normal symmetric movement = 0 Motor function left arm: Normal = 0 Motor function right arm: Normal = 0 Motor function left leg: Normal = 0 Motor function right leg: Normal = 0 Limb ataxia: No ataxia = 0 Sensory: Normal = 0 Best language: No aphasia = 0 Dysarthria: Normal articulation = 0 Extinction and inattention: Normal = 0 Total Score (severe deficit >22): Notes: Lab Results WBC: 9.9 E9/L (04/17/25 06:01:00) RBC: 4.1 E12/L Low (04/17/25 06:01:00) HGB: 11.2 gm/dL Low (04/17/25 06:01:00) Hct: 34.9 % Low (04/17/25 06:01:00) MCV: 85.4 fL (04/17/25 06:01:00) MCH: 27.5 pg (04/17/25 06:01:00) MCHC: 32.2 gm/dL (04/17/25 06:01:00) RDW: 20.3 % High (04/17/25 06:01:00) Platelet: 237 E9/L (04/17/25 06:01:00) MPV: 9.1 fL ( (more content not included)...[facility] Comment on above:Result Comment: Electronically Signed By: Pati Quinones RN\.br\Date and Time Signed: 04/17/25 09:21 EDT\.br\Electronically Co- Signed By: Ruy Molina DO\.br\Date and Time Co-Signed: 04/17/25 10:46 EDT 04-16-2025 NoteProgress Note-Physician Subjective Patient off floor for MRI. I did discuss the echo findings with the patient family. 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 Patient tape making machine operator showed be able to get access to patient current echo results. Meanwhile continue current management. Will need to have close follow-up and repeat echo in few months to assess his pericardial effusion and that was discussed with the patient family. Resume blood pressure home medications as tolerated. Please call for questions Objective Vitals & Measurements T: 36.5 ???C(Axillary) TMIN: 36.4 ???C(Oral) TMAX: 37.1 ???C(Axillary) HR: 84(Monitored) RR: 14 BP:176/84 SpO2: 92% WT: 76.3 kg Intake & Output This visit (24 hour periods starting at 07:00 EDT) 04/16/25 * 04/15/25 04/14/25 Total Summary Intake mL -- -- 7 Output mL -- 250 2,150 Fluid Balance -- -250 -2,143 Intake (2) furosemide mL -- -- 4 labetalol mL -- -- 3 Total -- -- 7 Output (1) Urine Voided mL -- 250 2,150 Total -- 250 2,150 Counts (0) * This column has not completed the indicated time period. Lab Results WBC: 14.6 E9/L High (04/16/25 06:05:00) RBC: 4.4 E12/L (04/16/25 06:05:00) HGB: 11.9 gm/dL Low (04/16/25 06:05:00) Hct: 37.2 % Low (04/16/25 06:05:00) MCV: 84.9 fL (04/16/25 06:05:00) MCH: 27.2 pg (04/16/25 06:05:00) MCHC: 32 gm/dL (04/16/25 06:05:00) RDW: 20.4 % High (04/16/25 06:05:00) Platelet: 268 E9/L (04/16/25 06:05:00) MPV: 8.7 fL (04/16/25 06:05:00) Neutro Auto: 84.3 % High (04/16/25 06:05:00) Lymph Auto: 4.6 % Low (04/16/25 06:05:00) Hardee Auto: 10.8 % (04/16/25 06:05:00) Eos Auto: 0.2 % (04/16/25 06:05:00) Basophil Auto: 0.1 % (04/16/25 06:05:00) Neutro Absolute: 12.3 E9/L High (04/16/25 06:05:00) Lymph Absolute: 0.7 E9/L Low (04/16/25 06:05:00) [place]ee Absolute: 1.6 E9/L High (04/16/25 06:05:00) Eos Absolute: 0 E9/L (04/16/25 06:05:00) Basophil Absolute: 0 E9/L (04/16/25 06:05:00) Glucose Lvl: 212 mg/dL High (04/16/25 06:05:00) BUN: 33 mg/dL High (04/16/25 06:05:00) Creatinine: 1.7 mg/dL High (04/16/25 06:05:00) eGFR: 39 mL/min/1.73 m2 Low (04/16/25 06:05:00) BUN/Creat Ratio: 19 (04/16/25 06:05:00) Sodium Lvl: 141 mmol/L (04/16/25 06:05:00) Potassium Lvl: 3.9 mmol/L (04/16/25 06:05:00) Chloride: 103 mmol/L (04/16/25 06:05:00) CO2: 24 mmol/L (04/16/25 06:05:00) AGAP: 18 mEq/L High (04/16/25 06:05:00) Calcium Lvl: 9.2 mg/dL (04/16/25 06:05:00) Magnesium: 2.4 mg/dL (04/16/25 06:05:00) Glucose Cap: 294 mg/dL High (04/16/25 11:23:00) POC Device SN: [id number] (04/16/25 11:23:00) POC User ID: [id number] (04/16/25 11:23:00) POC Username: WICHO NORRIS (04/16/25 11:23:00) Assessment/Plan 1. CVA (cerebrovascular accident) (I63.9: Cerebral infarction, unspecified) 2. Atrial fibrillation (I48.91: Unspecified atrial fibrillation) 3. Hypertensive urgency (I16.0: Hypertensive urgency) 4. Pericardial effusion (I31.39: Other pericardial effusion (noninflammatory)) 5. Congestive heart failure (I50.9: Heart failure, unspecified) 6. Chronic kidney disease (N18.9: Chronic kidney disease, unspecified) 7. Essential tremor (G25.0: Essential tremor) 8. DM2 (diabetes mellitus, type 2) (E11.9: Type 2 diabetes mellitus without complications) 9. BPH with urinary obstruction (N40.1: Benign prostatic hyperplasia with lower urinary tract symptoms) 10. On deep vein thrombosis (DVT) prophylaxis (Z79.899: Other rodent 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 (current) drug therapy) 11. History of DVT in adulthood (Z86.718: Personal history of other venous thrombosis and embolism) Chronic constipation with overflow (K59.09: Other constipation) Problem List/Past Medical History Ongoing Abdominal cramping Acquired buried penis Anticoagulated Asthma Balanitis BPH with urinary obstruction Chronic constipation with overflow Colon polyps Constipation Diabetes Diverticulosis Family history of colon cancer Fecal urgency Gas pain Gross hematuria Hemorrhoids History of colon polyps Incomplete bladder emptying Nausea OAB (overactive bladder) Post-void dribbling Historical Loose stools Medications Inpatient albuterol 0.083% Inh Eda 3 mL, 2.5 mg= 3 mL, Inhalation, q2hr, PRN albuterol 0.083% Inh Eda 3 mL, 2.5 mg= 3 mL, Inhalation, QID aspirin 81 mg Oral EC Tab, 81 mg= 1 tab(s), Oral, Daily bacitracin top 500 units/g Oint PACKET, 1 diamante, Topical, BID budesonide 0.25 mg/2 mL Inh Susp, 0.25 mg= 2 mL, NEB, BID Catapres 0.2 mg Tab, 0.2 mg= 1 tab(s), Oral, BID Dextrose 50% Soln-IV, 50 mL, IV Push, Once, PRN Flomax 0.4 mg Cap, 0.4 mg= 1 cap(s), Oral, Daily HumaLOG Sliding Scale, 0-10 Unit(s), SubCutaneous, QIDACHS Januvia 50 mg Tab, 50 mg= 2 tab(s), Oral, Daily Jardiance 10 mg oral tablet, 25 mg= 2.5 tab(s), Oral, qAM labetalol 100 mg Tab, 300 mg= 3 tab(s), Oral, TID Lasix 20 mg Tab, 20 mg= 1 tab(s), Oral, Daily loratadine 10 mg Tab, (more content not included)...[facility] Comment on above:Result Comment: Electronically Signed By: Hanna GUSTAFSON, Rebeca\.br\Date and Time Signed: 04/16/25 12:15 [id number] NoteProgress Note-Physician Assessment/Plan PLAN: 1. CVA (cerebrovascular accident) (I63.9: Cerebral infarction, unspecified) MRI of brain without contrast pending. Aspirin 81 mg resume PRN labetalol IV for SBP >200 Speech therapy /Occupational Therapy/ physical therapy Consult neurology-appreciated. Resume Xarelto/ASA BP control today 2. Atrial fibrillation (I48.91: Unspecified atrial fibrillation) Currently rate controlled Unsure if history Consult cardiology appreciated. ASA/Xarelto Resume home Labatelol. Heparin gtt DC 'd . Echocardiogram???pending Troponin leak secondary to mismatch demand supply. cardiology consult appreciated. 3. Hypertensive urgency (I16.0: Hypertensive urgency) Allow permissive HTN Labatelol, Clonidine, Lasix, Spironolactone. 4. Pericardial effusion (I31.39: Other pericardial effusion (noninflammatory)) IV Lasix given in ED Cardiology consult appreciated Echo pending. TSH normal. 5. Congestive heart failure (I50.9: Heart failure, unspecified) BNP 512 on admission. Given 40mg IV Lasix in ED. --now compensated. Echo pending. Oxygen prn., Med nebs. Strict I&O daily weight Outside records pending. Spironolactone, Lasix given in ED will continue 6. Chronic kidney disease (N18.9: Chronic kidney disease, unspecified) CKD --may be at baseline CR 1.8 on admission was same as prior lab from 2022 Avoid nephrotoxic meds 7. Essential tremor (G25.0: Essential tremor) Decrease primidone from 100 mg twice daily to 50 mg twice daily per neurology with plans to wean off eventually 8. DM2 (diabetes mellitus, type 2) (E11.9: Type 2 diabetes mellitus without complications) AccuChecks AC/HS w/ ss insulin Jardiance Hold Metformin , Glimepiride, pioglitazone HgA1C pending 9. BPH with urinary obstruction (N40.1: Benign prostatic hyperplasia with lower urinary tract symptoms) Flomax 10. On deep vein thrombosis (DVT) prophylaxis (Z79.899: Other correction (current) drug therapy) Resume Xarelto 11. History of DVT in adulthood (Z86.718: Personal history of other venous thrombosis and embolism) Xarelto Subjective Patient seen at bedside this morning. Patient opens eyes able to talk this morning. Still appears weak. Patient denies headache, visual changes, chest pain or shortness of breath. States he just feels really tired. Patient was able to move all extremities today states he feels better. Speech very soft-spoken but able to understand better than yesterday. Objective Vitals & Measurements T: 36.5 ???C(Axillary) TMIN: 36.4 ???C(Oral) TMAX: 37.1 ???C(Axillary) HR: 92(Monitored) RR: 16 BP:181/83 SpO2: 100% WT: 76.3 kg Intake & Output This visit (24 hour periods starting at 07:00 EDT) 04/16/25 * 04/15/25 04/14/25 Total Summary Intake mL -- -- 7 Output mL -- 250 2,150 Fluid Balance -- -250 -2,143 Intake (2) furosemide mL -- -- 4 labetalol mL -- -- 3 Total -- -- 7 Output (1) Urine Voided mL -- 250 2,150 Total -- 250 2,150 Counts (0) * This column has not completed the indicated time period. Physical Exam General: no acute distress Skin: warm, dry Head: no trauma, normocephalic Neck: Trachea midline, no adenopathy, no tenderness Eye: normal conjunctiva, sclera clear ENMT: oral mucosa moist, no pharyngeal erythema or exudate. hearing grossly intact Cardiovascular: Irregular, irregular rhythm, +2/6 ANGELI best heard at aortic position Respiratory: Lungs CTA, respirations non labored , no w/r/r Gastrointestinal: Positive bowel sound, soft, non distended, no tenderness, no guarding. Extremities: no deformity, no trauma Neurological: Alert able to state name. unable to obtain other orientation questions. Speech soft and slightly slurry. Severe dysarthria: unintelligible slurring or out of proportion to dysphasia Weaker RUE/RLE. Psychiatric: Unable to obtain due to mental status Lab Results WBC: 14.6 E9/L High (04/16/25 06:05:00) RBC: 4.4 E12/L (04/16/25 06:05:00) HGB: 11.9 gm/dL Low (04/16/25 06:05:00) Hct: 37.2 % Low (04/16/25 06:05:00) MCV: 84.9 fL (04/16/25 06:05:00) MCH: 27.2 pg (04/16/25 06:05:00) MCHC: 32 gm/dL (04/16/25 06:05:00) RDW: 20.4 % High (04/16/25 06:05:00) Platelet: 268 E9/L (04/16/25 06:05:00) MPV: 8.7 fL (04/16/25 06:05:00) Neutro Auto: 84.3 % High (04/16/25 06:05:00) Lymph Auto: 4.6 % Low (04/16/25 06:05:00) Hardee Auto: 10.8 % (04/16/25 06:05:00) Eos Auto: 0.2 % (04/16/25 06:05:00) Basophil Auto: 0.1 % (04/16/25 06:05:00) Neutro Absolute: 12.3 E9/L High (04/16/25 06:05:00) Lymph Absolute: 0.7 E9/L Low (04/16/25 06:05:00) Hardee Absolute: 1.6 E9/L High (04/16/25 06:05:00) Eos Absolute: 0 E9/L (04/16/25 06:05:00) Basophil Absolute: 0 E9/L (04/16/25 06:05:00) Glucose Lvl: 212 mg/dL High (04/16/25 06:05:00) BUN: 33 mg/dL High (04/16/25 06:05:00) Creatinine: 1.7 mg/dL High (04/16/25 06:05:00) eGFR: 39 mL/min/1.73 (more content not included)...[facility] Comment on above:Result Comment: Electronically Signed By: Anai URIARTE\.br\Date and Time Signed: 04/16/25 07:41 EDT\.br\Electronically Co- Signed By: Marc Fajardo DO.br\Date and Time Co-Signed: 04/16/25 11:48 EDT 04-16-2025 Hospital Discharge instructions Patient Education 04/16/2025 09:29:43 Type 2 Diabetes Mellitus, Diagnosis, Adult Type 2 Diabetes Mellitus, Diagnosis, Adult Type 2 diabetes (type 2 diabetes mellitus) is a long-term, or chronic, disease. In type 2 diabetes,one or both of these problems may be present: The pancreas does not make enough of a hormone called insulin. Cells in the body do not respond properly to the insulin that the body makes (insulin resistance). Normally, insulin allows blood sugar (glucose) to enter cells in the body. The cells use glucose for energy. Insulin resistance or lack of insulin causes excess glucose to build up in the blood instead of going into cells. This causes high blood glucose (hyperglycemia). What are the causes? The exact cause of type 2 diabetes is not known. What increases the risk? The following factors may make you more likely to develop this condition: Having a family member with type 2 diabetes. Being overweight or obese. Being inactive (sedentary). Having been diagnosed with insulin resistance. Having a history of prediabetes, diabetes when you were (gestational diabetes), or polycystic ovary syndrome (PCOS). What are the signs or symptoms? In the early stage of this condition, you may not have symptoms. Symptoms develop slowly and may include: Increased thirst or hunger. Increased urination. Unexplained weight loss. Tiredness (fatigue) or weakness. Vision changes, such as blurry vision. Dark patches on the skin. How is this diagnosed? This condition is diagnosed based on your symptoms, your medical history, a physical exam, and yourblood glucose level. Your blood glucose may be checked with one or more of the following blood tests: A fasting blood glucose (FBG) test. You will not be allowed to eat (you will fast) for 8 hours or longer before a blood sample is taken. A random blood glucose test. This test checks blood glucose at any time of day regardless of when you ate. An A1C (hemoglobin A1C) blood test. This test provides information about blood glucose levels over the previous 2 3 months. An oral glucose tolerance test (OGTT). This test measures your blood glucose at two times: ?After fasting. This is your baseline blood glucose level. ?Two hours after drinking a beverage that contains glucose. You may be diagnosed with type 2 diabetes if: Your fasting blood glucose level is 126 mg/dL (7.0 mmol/L) or higher. Your random blood glucose level is 200 mg/dL (11.1 mmol/L) or higher. Your A1C level is 6.5% or higher. Your oral glucose tolerance test result is higher than 200 mg/dL (11.1 mmol/L). These blood tests may be repeated to confirm your diagnosis. How is this treated? Your treatment may be managed by a specialist called an cob sawyer. Type 2 diabetes may be treated by following instructions from your health care provider about: Making dietary and lifestyle changes. These may include: ?Following a personalized nutrition plan that is developed by a registered dietitian. ?Exercising regularly. ?Finding ways to manage stress. Checking your blood glucose level as often as told. Taking diabetes medicines or insulin daily. This helps to keep your blood glucose levels in the healthy range. Taking medicines to help prevent complications from diabetes. Medicines may include: ?Aspirin. ?Medicine to lower cholesterol. ?Medicine to control blood pressure. Your health care provider will set treatment goals for you. Your goals will be based on your age, other medical conditions you have, and how you respond to diabetes treatment. Generally, the goal of treatment is to maintain the following blood glucose levels: Before meals: 80 130 mg/dL (4.4 7.2 mmol/L). After meals: below 180 mg/dL (10 mmol/L). A1C level: less than 7%. Follow these instructions at home: Questions to ask your health care provider Consider asking the following questions: Should I meet with a certified diabetes care and drug abuse resistance education officer? What diabetes medicines do I need, and when should I take them? What equipment will I need to manage my diabetes at home? How often do I need to check my blood glucose? Where can I find a support group for people with diabetes? What number can I call if I have questions? When is my next appointment? General instructions Take [id number] and prescription medicines only as told by your health care provider. Keep all follow-up visits. This is important. Where to find more information For help and guidance and for more information about diabetes, please visit: [place] [employer] (ADA): www.diabetes.org [place] [employer] Care and Education Specialists (ADCES): www.diabeteseducator.org International Diabetes Federation (IDF): www.idf.org Contact a health care provider if: Your blood glucose is at or above 240 mg/dL (13.3 mmol/L) for 2 days in a row. You have been sick or have had a fever for 2 days or longer, and you are not getting better. You have any of the following problems for more than 6 hours: ?You cannot eat or drink. ?You have nausea and vomiting. ?You have diarrhea. Get help right away if: You have severe hypoglycemia. This means your blood glucose is lower than 54 mg/dL (3.0 mmol/L). You become confused or you have trouble thinking clearly. You have difficulty breathing. You have moderate or large ketone levels in your urine. These symptoms may represent a serious problem that is an emergency. Do not wait to see if the symptoms will go away. Get medical help right away. Call your local emergency services (911 in the [place] Do not drive yourself to the hospital. Summary Type 2 diabetes mellitus is a long-term, or chronic, disease. In type 2 diabetes, the pancreas doesnot make enough of a hormone called insulin, or cells in the body do not respond properly to insulin that the body makes. This condition is treated by making dietary and lifestyle changes and taking diabetes medicines or insulin. Your health care provider will set treatment goals for you. Your goals will be based on your age, other medical conditions you have, and how you respond to diabetes treatment. Keep all follow-up visits. This is important. This information is not intended to replace advice given to you by your health care provider. Make sure you discuss any questions you have with your health care provider. Document Revised: 01/26/2022 Document Reviewed: 01/26/2022 [employer] Patient Education 2023 [employer]. 04/16/2025 09:29:43 Atrial Fibrillation Atrial Fibrillation Atrial fibrillation (AFib) is a type of irregular or rapid heartbeat (arrhythmia). In AFib, the toppart of the heart (atria) beats in an irregular pattern. This makes the heart unable to pump blood normally and effectively. The goal of treatment is to prevent blood clots from forming, control your heart rate, or restore your heartbeat to a normal rhythm. If this condition is not treated, it can cause serious problems, such as a weakened heart muscle (cardiomyopathy) or a stroke. What are the causes? This condition is often caused by medical conditions that damage the heart's electrical system. These include: High blood pressure (hypertension). This is the most common cause. Certain heart problems or conditions, such as heart failure, coronary artery disease, heart valve problems, or heart surgery. Diabetes. Overactive thyroid (hyperthyroidism). Chronic kidney disease. Certain lung conditions, such as emphysema, pneumonia, or COPD. Obstructive sleep apnea. In some cases, the cause of this condition is not known. What increases the risk? This condition is more likely to develop in: Older adults. Athletes who do endurance exercise. People who have a family history of AFib. Males. People who are . People who are obese. People who smoke or misuse alcohol. What are the signs or symptoms? Symptoms of this condition include: Fast or irregular heartbeats (palpitations). Discomfort or pain in your chest. Shortness of breath. Sudden light-headedness or weakness. Tiring easily during exercise or activity. Syncope (fainting). Sweating. In some cases, there are no symptoms. How is this diagnosed? Your health care provider may detect AFib when taking your pulse. If detected, this condition may be diagnosed with: An electrocardiogram (ECG) to check electrical signals of the heart. An ambulatory bus driver/monitor to record your heart's activity for a few days. A transthoracic echocardiogram (TTE) to create pictures of your heart. A transesophageal echocardiogram (MARK) to create even clearer pictures of your heart. A stress test to check your blood supply while you exercise. Imaging tests, such as a CT scan or chest X-ray. Blood tests. How is this treated? Treatment depends on underlying conditions and how you feel when you get AFib. This condition may be treated with: Medicines to prevent blood clots or to treat heart rate or heart rhythm problems. Electrical cardioversion to reset the heart's rhythm. A pacemaker to correct abnormal heart rhythm. Ablation to remove the heart tissue that sends abnormal signals. Left atrial appendage closure to seal the area where blood clots can form. In some cases, underlying conditions will be treated. Follow these instructions at home: Medicines Take over-the counter and prescription medicines only as told by your provider. Do not take any new medicines without talking to your provider. If you are taking blood thinners: ?Talk with your provider before taking aspirin or NSAIDs. These medicines can raise your risk of bleeding. ?Take your medicines as told. Take them at the same time each day. ?Do not do things that could hurt or bruise you. Be careful to avoid falls. ?Wear an alert bracelet or carry a card that says that you take blood thinners. Lifestyle Do not use any products that contain nicotine or tobacco. These products include cigarettes, chewing tobacco, and vaping devices, such as e-cigarettes. If you need help quitting, ask your provider. Eat heart-healthy foods. Talk with a food expert (dietitian) to make an eating plan that is right for you. Exercise regularly as told by your provider. Do not drink alcohol. Lose weight if you are overweight. General instructions If you have obstructive sleep apnea, manage your condition as told by your provider. Do not use diet pills unless your provider approves. Diet pills can make heart problems worse. Keep all follow-up visits. Your provider will want to check your heart rate and rhythm regularly. Contact a health care provider if: You notice a change in the rate, rhythm, or strength of your heartbeat. You are taking a blood thinner and you notice more bruising. You tire more easily when you exercise or do heavy work. You have a sudden change in weight. Get help right away if: You have chest pain. You have trouble breathing. You have side effects of blood thinners, such as blood in your vomit, poop (stool), or pee (urine),or bleeding that does not stop. You have any symptoms of a stroke. BE FAST is an easy way to remember the main warning signs of astroke: ?B - Balance. Signs are dizziness, sudden trouble walking, or loss of balance. ?E - Eyes. Signs are trouble seeing or a sudden change in vision. ?F - Face. Signs are sudden weakness or numbness of the face, or the face or eyelid drooping on oneside. ?A - Arms. Signs are weakness or numbness in an arm. This happens suddenly and usually on one side of the body. ?S - Speech.Signs are sudden trouble speaking, slurred speech, or trouble understanding what peoplesay. ?T - Time. Time to call emergency services. Write down what time symptoms started. Other signs of a stroke, such as: ?A sudden, severe headache with no known cause. ?Nausea or vomiting. ?Seizure. These symptoms may be an emergency. Get help right away. Call 911. Do not wait to see if the symptoms will go away. Do not drive yourself to the hospital. This information is not intended to replace advice given to you by your health care provider. Make sure you discuss any questions you have with your health care provider. Document Revised: 07/21/2023 Document Reviewed: 07/21/2023 [employer] Patient Education 2023 [employer]. 04/16/2025 09:29:43 Core Measures: Stroke (Cerebrovascular Accident) [facility] [place] Stroke (Cerebrovascular Accident) A stroke is acute of brain tissue, and it is a neurologic emergency. A stroke can cause permanent loss of function of the central nervous system (brain). If the symptoms of a stroke end withoutcomplications in 24 hours, it is diagnosed as a transient ischemic attack (TIA). If the symptoms are not resolved within 24 hours, it is defined as a stroke. CAUSES A stroke is caused by a decrease of oxygen supply to an area of your brain. It is usually the result of a small blood clot or hardening of the arteries. Blockages in, or damage to, the carotid arteries leading to the brain can also cause a stroke. Bleeding in the brain can cause, or accompany, a stroke. SYMPTOMS These symptoms usually develop suddenly (or may be newly present upon awakening from sleep): Loss of vision. Double vision. Confusion. Numbness or weakness on one side of the face or body. Inability to speak (aphasia). DIAGNOSIS Your caregiver can often determine the presence or absence of a stroke based on your symptoms, history, and examination. A CT scan of the brain is usually performed to confirm the stroke, look for causes, and determine the severity. Other tests may be done to find the cause of the stroke, including: An EKG and heart monitoring. An echocardiogram (ultrasound evaluation of the heart). An ultrasound evaluation of your carotid arteries. Determination of blood oxygen level and blood tests. PREVENTION The likelihood of a stroke can be decreased by appropriate treatment of high blood pressure, high cholesterol, diabetes, and by stopping smoking. RISK FACTORS: If you have been told by your doctor or nurse practitioner that you have any of the following risk factors for stroke, work with your health inspector health care facilities to control them. High Blood Pressure: High blood pressure is one of the main causes of stroke. It is the most important risk factor to control. Take your blood pressure medication, lose weight, increase your activity, and limit your salt intake to help control your blood pressure.Take your your blood pressure and write it down and then take them to your next doctor's appointment. Smoking: If you smoke: QUIT! We can help. Please call [facility] at [phone] [place] [place] or [phone], ext. [phone] Diabetes: Work with your healthcare professional to keep your blood sugar under control. Check yourblood sugar and take the results to your next doctor's visit. Take your medications as directed. Eating a healthy diet and exercising will also help keep your diabetes under control. For information on [facility] please call, . Carotid or other Artery Diseases: The carotid arteries in your neck carry blood to the brain. A stroke can be caused by a blood clot blocking an artery that has been damaged by a fatty buildup insidethe artery wall. Discuss ways to manage this with your health care provider. Atrial Fibrillation (A Fib): In A fib, your heart does not have a normal beat. This may allow clotsto form and puts you at a greater risk for having a stroke. Work with your health care provider to control your A fib. Your doctor may order special medication that helps prevent clots from forming. High blood cholesterol or high blood fats: High cholesterol increases your risk of stroke. Exerciseregularly, but talk to your health care provider first. A diet low in fat and cholesterol can help.If you have any questions about a low fat, low cholesterol diet, you can call our [facility] trust manager assistant at [phone] Ext. [phone]. The goal for total cholesterol is less than 200, and for LDL or thebad cholesterol is less than 100. Lifestyle Management: You increase your risk of stroke if you are overweight or obese, are not veryactive, or drink too much alcohol. Enjoy a diet rich in fruits and vegetables. Exercise regularly and drink alcohol in moderation or no more than two drinks a day for men and no more than one drink aday for non- women, or don't drink at all. This will help decrease your risk of stroke. Oral Contraceptives: Taking control pills or the pill can be a risk factor for stroke especially if you smoke. Discuss using the oral contraceptives and your risk of stroke with your health inspector health care facilities. TREATMENT TIME IS OF THE ESSENCE! Medications to dissolve a blood clot can only be used within four and a half hours of the onset of symptoms. After that time, treatment of stroke depends on duration of symptoms, severity, and cause. Medications and diet measures may be used to address diabetes, high blood pr essure, and other risk factors. Physical therapy, speech therapy, and occupational therapy specialists will assess you and work to improve any functions impaired by the stroke. Measures will be takento prevent short and rodent 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 complications, including aspiration pneumonia, blood clots in the leg s, bedsores, and falls. HOME CARE INSTRUCTIONS Care at home after a stroke can be complicated. Medications Blood thinners may be used to prevent another stroke. Blood thinners need to be used exactly as instructed. Medicines may also be used to control risk factors for a stroke. Be sure you understand all your medication instructions. It is very important to not run out of your medicine. Getmore while you still have a one-week supply. Do not stop taking your medicine without speaking to your healthcare professional. Take all of your medications or an updated list of your medications to all of your doctor's appointments. Physical, occupational, and speech therapy Ongoing therapy is often necessary to maximize recovery after a stroke. If you have been advised to use a walker or a cane, use it at all times. Be sure youkeep your therapy appointments. Diet Certain diets may be prescribed to address high blood pressure, high cholesterol, or diabetes.Foods may need to be a special consistency (soft, pureed, small bites) to avoid food going into your lungs or choking. Home safety A safe home environment is important to reduce the risk of falls. Your caregiver may arrange for specialists to evaluate your home. Grab bars in the bedroom and bathroom are often important. Your caregiver may arrange for special equipment to be used at home, such as raised toilets and a seat for the shower. It s important to know and control your risk factors, but it is also important to recognize the signs and symptoms of stroke/TIA and know what to do: Call 911 if any of these things happen: Sudden numbness or weakness of the face, arm, or leg especially on one side of the body. Sudden confusion, trouble speaking, or understanding. Sudden trouble seeing in one or both eyes. Sudden trouble walking, dizziness, loss of balance or coordination Sudden severe headache with no known cause * It is very important for you to follow-up with your Primary Care Doctor and your Neurologist after you go home. Make sure that you keep your doctor visits. Remember: TIME LOST is BRAIN LOST Resources: for more information on strokes, log onto [email or web address] or [email or web address] or call the [place] [employer] at . Revised 11/2018 Follow Up Care 04/14/2025 16:54:01 With:Neurology Address: [phone] When:2 to 4 weeks Comments:Call for followup appointment [facility] 06-02-2025 NoteEchocardiology Procedure Exam Date/Time Accession # Ordering Echo Transthoracic 04/16/2025 10:06 EDT [id number] PEPE AGELENITA, Complete Anai CPT code 65504 [id number] Reason for Exam (Echo Transthoracic Complete) CVA Report [facility] [address] [place] [address] Adult Echocardiogram Report Name: NADIR BETH Study Date: 04/16/2025 09:15 AM BP: 172/80 mmHg Patient [place]: [id number] [id number] [facility] [place] [facility]: 94 : 1940 Gender: Male Height: 71.5 in Age: 85 yrs Ethnicity: T Weight: 168 lb Reason For Study: CVA BSA: 2.0 m2 History: AFIB, HTN, CKD, DM, CHF Ordering Physician: Anai CANTU Performed By: Rabia Heredia RDCS Interpretation Summary The left ventricle is normal in size. moderate left ventricular hypertrophy. Ejection Fraction = 65-70%. The left ventricular ejection fraction is normal. The right ventricle appears to be dilated and dysfunctional. Aortic valve appears to be sclerotic,calcified with reduced opening, not well- seen. Mean gradient 23 mmHg, peak gradient 40 mmHg. Dimensionless index 0.32 (values less than 0.32 indicates severe aortic valve stenosis) Overall mild to moderate aortic valve stenosis. Mild AI. There is moderate to severe tricuspid regurgitation. Estimated RVSP is severely elevated at 88.6 mmHg. There is circumferential moderate pericardial effusion. Procedure A complete two-dimensional transthoracic echocardiogram was performed (2D, M- mode, spectral and color flow Doppler). Echocardiology Report Left Ventricle The left ventricle is normal in size. moderate left ventricular hypertrophy. Ejection Fraction = 65-70%. The left ventricular ejection fraction is normal. No obvious regional wall motion abnormalities noted. Left Atrium The left atrium is moderate to severely dilated. Right Atrium The right atrium is moderately dilated. Right Ventricle The right ventricle appears to be dilated and dysfunctional. Aortic Valve Aortic valve appears to be sclerotic,calcified with reduced opening, not well- seen. Mean gradient 23 mmHg, peak gradient 40 mmHg. Dimensionless index 0.32 (values less than 0.32 indicates severe aortic valve stenosis) Overall mild to moderate aortic valve stenosis. Mild AI. Mitral Valve Mild thickening of the mitral valve leaflets. There is mild mitral valve annular dilation. There is Trace mitral regurgitation. Tricuspid Valve There is moderate to severe tricuspid regurgitation. Estimated RVSP is severely elevated at 88.6 mmHg. Venous Moderately dilated inferior vena cava. Effusion There is circumferential moderate pericardial effusion. MMode/2D Measurements & Calculations RVDd: 4.2 cm LVIDd: 3.9 cm FS: 30.3 % Ao root diam: 3.5 cm IVSd: 1.4 cm LVIDs: 2.7 cm EDV(Teich): 66.5 ml Ao root area: 9.5 cm2 LVPWd: 1.4 cm ESV(Teich): 27.7 ml LA dimension: 5.6 cm EF(Teich): 58.3 % asc Aorta Diam: 3.4 cm LVOT diam: 2.2 cm LVLd ap4: 8.5 cm EDV(MOD-sp2): 89.0 ml LVOT area: 3.8 cm2 EDV(MOD-sp4): 109.0 ml ESV(MOD-sp2): 39.7 ml LVLs ap4: 6.7 cm EF(MOD-sp2): 55.4 % ESV(MOD-sp4): 26.7 ml EF(MOD-sp4): 75.5 % SV(MOD-sp4): 82.3 ml Ao Sinus of Valsalva: 3.7 cm Ao Sinotubular Junction: 3.1 cm IVC Diam: 2.3 cm Echocardiology Report PE to Lat Wall_phl: 1.1 cm RV Base_phl: 4.2 cm RVIDd/LVIDd: 1.1 PE to RV_phl: 1.6 cm RA A4Cs_phl: 25.3 cm2 RV Length_phl: 7.3 cm RV Mid_phl: 4.1 cm EF (MOD-bp): 66.9 % LA Vol Index: 78.7 ml/m2 Doppler Measurements & Calculations MV E max daija: 123.0 cm/sec MV dec time: 0.15 sec Ao V2 max: 314.7 cm/sec LV V1 max P.5 mmHg Ao max P.6 mmHg LV V1 mean P.0 mmHg Ao V2 mean: 237.3 cm/sec LV V1 max: 93.6 cm/sec Ao mean P.7 mmHg LV V1 mean: 69.8 cm/sec Ao V2 VTI: 67.1 cm LV V1 VTI: 21.7 cm MELY(I,D): 1.2 cm2 MELY(V,D): 1.1 cm2 SV(LVOT): 81.7 ml TR max daija: 457.2 cm/sec RAP systole: 5.0 mmHg AV VR: 0.30 TR max P.6 mmHg MELY(VTI)/BSA_phl: 0.62 RVSP(TR): 88.6 mmHg FINAL REPORT Dictated: 04/16/2025 9:15 am Rebeca Ferreira MD Signed (Electronic Signature): 04/16/2025 10:32 am Signed by: Rebeca Ferreira MD Transcribed by: ROBER Technologist: [facility]06-02-2025 Note Progress Note-Physician Assessment/Plan ASSESSMENT: His presentation is very concerning for an acute left hemispheric ischemic stroke. There is some hypodensity that appears to be evolving in the left frontal white matter near the head of the caudate on his CT scan. His atrial fibrillation is probably his biggest stroke risk factor, and he also has severe hypertension. Etiology for his presumed stroke will be determined based on the appearance on MRI. He is on rivaroxaban for atrial fibrillation and also takes aspirin. He has a statin intolerance. He is on of primidone for essential tremor which is a potent hepatic enzymatic inducer and might render the rivaroxaban less effective. PLAN: 1. MRI brain pending 2. Transthoracic echocardiogram pending 3. Continue rivaroxaban for the atrial fibrillation 4. Continue the primidone at 50 mg twice daily (home dose 100 mg twice daily) with plans of eventual weaning and discontinuation 5. Further recommendations to follow 1. CVA (cerebrovascular accident) (I63.9: Cerebral infarction, unspecified) 2. Atrial fibrillation (I48.91: Unspecified atrial fibrillation) 3. Hypertensive urgency (I16.0: Hypertensive urgency) 4. Pericardial effusion (I31.39: Other pericardial effusion (noninflammatory)) 5. Congestive heart failure (I50.9: Heart failure, unspecified) 6. Chronic kidney disease (N18.9: Chronic kidney disease, unspecified) 7. Essential tremor (G25.0: Essential tremor) 8. DM2 (diabetes mellitus, type 2) (E11.9: Type 2 diabetes mellitus without complications) 9. BPH with urinary obstruction (N40.1: Benign prostatic hyperplasia with lower urinary tract symptoms) 10. On deep vein thrombosis (DVT) prophylaxis (Z79.899: Other rodent 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 (current) drug therapy) 11. History of DVT in adulthood (Z86.718: Personal history of other venous thrombosis and embolism) Chronic constipation with overflow (K59.09: Other constipation) Subjective Sitting up in bed. Family members are present. Language impairment has improved. He is speaking in short phrases. Review of Systems Still could not obtain due to language impairment[1] Objective Vitals & Measurements T: 36.5 ???C(Axillary) TMIN: 36.4 ???C(Oral) TMAX: 37.1 ???C(Axillary) HR: 94(Monitored) RR: 14 BP:181/83 SpO2: 92% WT: 76.3 kg Intake & Output This visit (24 hour periods starting at 07:00 EDT) 04/16/25 * 04/15/25 04/14/25 Total Summary Intake mL -- -- 7 Output mL -- 250 2,150 Fluid Balance -- -250 -2,143 Intake (2) furosemide mL -- -- 4 labetalol mL -- -- 3 Total -- -- 7 Output (1) Urine Voided mL -- 250 2,150 Total -- 250 2,150 Counts (0) * This column has not completed the indicated time period. Physical Exam GEN: General appearance normal. Well-kempt. No distress. No visualized deformities or trauma. CARDIO/VASC: Limbs without significant edema and appear well-perfused. PULM: Normal work of breathing. SKIN: Visualized skin is intact and without lesions aside from age-related findings. MS: Affect is normal. Patient is alert and generally oriented. Normal attention. LANG: Speech soft, muffled, speaking in short phrases, intermittently intelligible. Following commands today. EYES: Pupils equal. Ocular motility full. No pathologic nystagmus. CN: Facial sensation normal. Hearing acuity normal. Face without droop and with normal motor function. MOTOR: Muscle bulk normal. Muscle tone normal. No hemiparesis apparent. No significant postural tremors. REFLEXES: No pathologic reflexes. SENSORY: Light touch intact. CEREBELLAR: No limb ataxia. Date/Time: Level of Consciousness: Alert = 0 Current month and age: Both incorrect = 1 Open and close eyes/assembler movement release hand: Obeys both correctly = 0 Best gaze: Normal = 0 Visual field testing: No visual field loss = 0 Facial paresis: Normal symmetric movement = 0 Motor function left arm: Normal = 0 Motor function right arm: Drift =0 Motor function left leg: Drift = 0 Motor function right leg: Drift = 0 Limb ataxia: No ataxia = 0 Sensory: Normal = 0 Best language: Severe aphasia =1 Dysarthria: Mild to moderate slurring of words = 0 Extinction and inattention: Normal = 0 Total Score (severe deficit >22): 2 down from 8 Notes: [2] Lab Results WBC: 14.6 E9/L High (04/16/25 06:05:00) RBC: 4.4 E12/L (04/16/25 06:05:00) HGB: 11.9 gm/dL Low (04/16/25 06:05:00) Hct: 37.2 % Low (04/16/25 06:05:00) MCV: 84.9 fL (04/16/25 06:05:00) MCH: 27.2 pg (04/16/25 06:05:00) MCHC: 32 gm/dL (04/16/25 06:05:00) RDW: 20.4 % High (04/16/25 06:05:00) Platelet: 268 E9/L (04/16/25 06:05:00) MPV: 8.7 fL (04/16/25 06:05:00) Neutro Auto: 84.3 % High (04/16/25 06:05:00) Lymph Auto: 4.6 % Low (04/16/25 06:05:00) Hardee Auto: 10.8 % (04/16/25 06:05:00) Eos Auto: 0.2 % (04/16/25 06:05:00) Basophil Auto: 0.1 % (04/16/25 06:05:00) Neutro Absolute: 12.3 E9/L High (04/16/25 06:05:00) Lymph Absolut (more content not included)...[facility]Comment on above:Result Comment: Electronically Signed By: Tonny OTERO, Preethi Marroquin\.br\Date and Time Signed: 04/16/25 07:32 EDT\.br\Electronically Co-Signed By: Ruy Molina DO\.br\Date and Time Co-Signed: 04/16/25 09:47 [id number] Note Interdisciplinary Note - PT PT Evaluation done this date. Pt. with on AM-PAC this date. Min Ax1 and FWW with all activityfor safety. Recommend SNF at this time, will continue to follow.[facility]06-01-2025 NoteInterdisciplinary Note - PT PT evaluation order received. Pt has an MRI still pending and as per nursing should be on hold for today. Will attempt tomorrow.[facility] 04-15-2025 NoteConsultation Note Chief Complaint AMS History of Present Illness Patient is an 85-year-old male with past medical history as noted below comes in with above-stated chief complaint. Patient was at his baseline state of health until the afternoon of 04/14/2025. At approximately 1500 patient came to have altered mental status which prompted to call squad. Patient had complained of a severe headache prior to the altered mental status. When squad arrived they noted significant right-sided weakness in their report. When I see patient he is not able to follow any commands or answer questions. He does speak some words but very softly and not necessarily appropriately. When I lift left arm and left leg up he is able to hold it up. When I lift up his right yaya right leg they drop to the bed immediately. Patient's daughter Valerie is healthcare power of litigation attorney. She was on the phone. She states that for the time being she would like patient to be a full code. She will discuss this with her family and notify us if she makes any changes. Family does note that patient was admitted for a stroke at [facility] about 6 weeks ago. They state that he hasfull recovery and has been home since then. At baseline patient is still driving. Patient had driven earlier in the day and did fine on the drive out. states that when driving back home he was having some difficulty maneuvering in their driveway which is unusual for him. Family does not know of any obvious symptoms of recent fevers, chills, nausea, vomiting, cough, shortness of breath. Patient was seen earlier in the morning and most of the history was taken from reviewing the chart and talking to his family at bedside. Patient does have a history of chronic A-fib. He was on Eliquis but then that was switched few weeks ago after having MRI of the brain and then subsequently was put on Xarelto. Patient has been doing okay until yesterday when he was brought to the hospital. No further information is obtained. 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 Review of Systems As per HPI Physical Exam Vitals & Measurements T: 37.3 ???C(Axillary) TMIN: 36.3 ???C(Oral) TMAX: 37.3 ???C(Axillary) HR: 96(Monitored) RR: 19 BP:182/75 SpO2: 96% HT: 182.88 cm WT: 81.3 kg Pleasant open his eyes and then fall asleep Heart S1-S2 systolic murmur over the second intercostal space. Lungs decreased breath sounds. Abdomen nontender. Extremities bilateral edema Assessment/Plan 1. CVA (cerebrovascular accident) (I63.9: Cerebral infarction, unspecified) Workup in progress 2. Atrial fibrillation (I48.91: Unspecified atrial fibrillation) Patient did have a history of A-fib as mentioned above. He was on Eliquis and then was switched recently to Xarelto he has been compliant with Xarelto. Will continue rate control for now. Treat acuteissues. 3. Hypertensive urgency (I16.0: Hypertensive urgency) Please document his blood pressure home medications. Resume them as feasible. Please also check whether he is on clonidine at he might be withdrawing from that. If he is on clonidine as an outpatientand cannot take p.o. meds you could start clonidine patch to avoid withdrawing symptoms. Goal of blood pressure control per neurology. 4. Pericardial effusion (I31.39: Other pericardial effusion (noninflammatory)) That was reported on CAT scan. Will obtain 2D echo. Patient seems to be not in tamponade. Check TSHif not done recently. 5. Congestive heart failure (I50.9: Heart failure, unspecified) Will obtain echo seems to be compensated blood pressure control 6. Chronic kidney disease (N18.9: Chronic kidney disease, unspecified) Avoid nephrotoxic agents 7. DM2 (diabetes mellitus, type 2) (E11.9: Type 2 diabetes mellitus without complications) 8. BPH with urinary obstruction (N40.1: Benign prostatic hyperplasia with lower urinary tract symptoms) 9. On deep vein thrombosis (DVT) prophylaxis (Z79.899: Other rodent 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 (current) drug therapy) 10. History of DVT in adulthood (Z86.718: Personal history of other venous thrombosis and embolism) Elevated troponin likely due to mismatch demand supply. Continue current management. Continue to trend. Obtain 2D echo. Treat acute issues. Aggressive risk factor control. Thank you for the consult discussed with the patient family at bedside. Problem List/Past Medical History Ongoing Abdominal cramping Acquired buried penis Anticoagulated Asthma Balanitis BPH with urinary obstruction Chronic constipation with overflow Colon polyps Constipation Diabetes Diverticulosis Family history of colon cancer Fecal urgency Gas pain Gross hematuria Hemorrhoids History of colon polyps Incomplete bladder emptying Nausea OAB (overactive bladder) Post-void dribbling Historical Loose stools Procedure/Surgical History Colonoscopy (05/11/2022), Cardioversion (01/11/2017), Back, Cholecystectomy, Colonoscopy, History of hernia repair, Tonsillectomy. Medications (more content not included)...[facility] MemorialComment on above:Result Comment: Electronically Signed By: Rebeca Ferreira MD\.mary\Date and Time Signed: 04/15/25 09:39 [id number] NoteConsultation Note Chief Complaint AMS Reason for Consultation Stroke History of Present Illness 85-year-old man. Yesterday he complained about headache to his . Details are unclear. Around 3 PM he became suddenly confused, or so it seemed. He was unable to follow commands or answer questions. His speech became soft and unintelligible. He initially had some significant right sided weakness, and when being assessed when his right arm or right leg were lifted they would drop to the bed immediately. His family member said that he was admitted for stroke workup at the [facility] about a month and a half ago but had full recovery. His said that they saw mini strokes on MRI. At home he is on Xarelto and aspirin. He is said to have a statin intolerance. He is on primidone 100 mg twice daily. A CT of his head here shows a hypodense area near his left caudate nucleus. CTA study showed 50% stenosis at the proximal right M1. His blood pressures have been as high as 206/102. He seems to be unable to verbalize complaints today. When asked if he has a headache he says yes. Heanswers yes to a lot of questions. He is not able to provide details. Some of his speech is unintelligible. Could not obtain review of systems. Review of Systems Could not obtain due to language impairment Physical Exam Vitals & Measurements T: 36.5 ???C(Oral) TMIN: 36.3 ???C(Oral) TMAX: 36.9 ???C(Oral) HR: 117(Peripheral) RR: 24 BP: 197/88 SpO2: 99% HT: 182.88 cm WT: 81.3 kg GEN: General appearance normal. Well-kempt. No distress. No visualized deformities or trauma. CARDIO/VASC: Limbs without significant edema and appear well-perfused. PULM: Normal work of breathing. SKIN: Visualized skin is intact and without lesions aside from age-related findings. MS: Affect is normal. Patient is alert and generally oriented. Normal attention. LANG: Speech soft, muffled, unintelligible. Not following any commands. Seems to have significant aphasia. EYES: Pupils equal. Ocular motility full. No pathologic nystagmus. CN: Facial sensation normal. Hearing acuity normal. Face without droop and with normal motor function. MOTOR: Muscle bulk normal. Muscle tone normal. Could not formally assess muscle strength. He seems to be able to hold up all limbs temporarily but the right side drifts faster than the left. No significant postural tremors. REFLEXES: No pathologic reflexes. SENSORY: Light touch intact. CEREBELLAR: No limb ataxia. Date/Time: Level of Consciousness: Alert = 0 Current month and age: Both incorrect = 2 Open and close eyes/assembler movement release hand: Obeys both correctly = 0 Best gaze: Normal = 0 Visual field testing: No visual field loss = 0 Facial paresis: Normal symmetric movement = 0 Motor function left arm: Normal = 0 Motor function right arm: Drift = 1 Motor function left leg: Drift = 1 Motor function right leg: Drift = 1 Limb ataxia: No ataxia = 0 Sensory: Normal = 0 Best language: Severe aphasia = 2 Dysarthria: Mild to moderate slurring of words = 1 Extinction and inattention: Normal = 0 Total Score (severe deficit >22): 8 Notes: Assessment/Plan ASSESSMENT: His presentation is very concerning for an acute left hemispheric ischemic stroke. There is some hypodensity that appears to be evolving in the left frontal white matter near the head of the caudate on his CT scan. His atrial fibrillation is probably his biggest stroke risk factor, and he also has severe hypertension. Etiology for his presumed stroke will be determined based on the appearance on MRI. He is on rivaroxaban for atrial fibrillation and also takes aspirin. He has a statin intolerance. He is on of primidone for essential tremor which is a potent hepatic enzymatic inducer and might render the rivaroxaban less effective. PLAN: 1. MRI brain pending 2. Transthoracic echocardiogram pending 3. He is currently on a heparin drip. If he is safe to swallow his Xarelto then he can just remain on his oral anticoagulant from my standpoint. He does have a troponin leak, which may be related to cerebral ischemia rather than any cardiac process. 4. Speech therapy evaluation 5. Once no longer n.p.o., decrease the home primidone 100 mg twice daily dosing to 50 mg twice daily with plans to wean off entirely eventually 6. Further recommendations to follow 1. CVA (cerebrovascular accident) (I63.9: Cerebral infarction, unspecified) 2. Atrial fibrillation (I48.91: Unspecified atrial fibrillation) 3. Hypertensive urgency (I16.0: Hypertensive urgency) 4. Pericardial effusion (I31.39: Other pericardial effusion (noninflammatory)) 5. History of DVT in adulthood (Z86.718: Personal history of other venous thrombosis and embolism) 6. Congestive heart failure (I50.9: Heart failure, unspecified) 7. Chronic kidney disease (N18.9: Chronic kidney disease, unspecified) 8. BPH with urinary obstruction (N40.1: Benign prostatic hyperplasia with lower urinary tract symptoms) 9. DM2 (diabetes elio (more content not included)...[facility] Comment on above:Result Comment: Electronically Signed By: Stephanie Mello RN\.br\Date and Time Signed: 04/15/25 06:55EDT\.br\Electronically Co-Signed By: Ruy Molina DO\.br\Date and Time Co-Signed: 04/15/25 09:37 [id number] Note History and Physical Basic Information Admit Date/Time:04/14/2025 19:37 Chief Complaint AMS History of Present Illness Patient is an 85-year-old male with past medical history as noted below comes in with above-stated chief complaint. Patient was at his baseline state of health until the afternoon of 04/14/2025. At approximately 1500 patient came to have altered mental status which prompted to call squad. Patient had complained of a severe headache prior to the altered mental status. When squad arrived they noted significant right-sided weakness in their report. When I see patient he is not able to follow any commands or answer questions. He does speak some words but very softly and not necessarily appropriately. When I lift left arm and left leg up he is able to hold it up. When I lift up his right yaya right leg they drop to the bed immediately. Patient's daughter Valerie is healthcare power of litigation attorney. She was on the phone. She states that for the time being she would like patient to be a full code. She will discuss this with her family and notify us if she makes any changes. Family does note that patient was admitted for a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
[2025-05-09] VITALS (23 sets, daily range): BP systolic 159–184; BP diastolic 66–90; PULSE 72–106; TEMP 36.3–36.7; O2SAT 90–94; BMI 25.2
[2025-05-09] MEDS: HYDRALAZINE HCL 20 MG/ML VIAL 10 MG IVP (04:19)
[2025-05-09] MEDS: LABETALOL HCL 100 MG TABLET 300 MG PO ×3 (05:05→21:27)
[2025-05-09] MEDS: IPRATROPIUM BROMIDE 0.5 MG/2.5 ML VIAL.NEB IH (05:17)
--- OUTSIDE RECORDS SUMMARY | 2025-05-09 06:07 | XMS_ITS | Encounter Summary ---
Author Organization [facility] Address [id number] [address] [place] [address] Care Team Providers Care Manufacturing Production Manager Name Role Phone Pj Sung MD Primary Care Provider [phone] Encounter Details Date Type Department Care Team (Late st Contact Info) Description 02/15/2025 Orders Only [facility] [address] [place] [address] Transcribe, Orders Support User Pain [...] pain documented in this encounter Care Teams Manufacturing Production Manager Relationship Specialty Start Date End Date Pj Sung MD [address] [place] [address] PCP - General Family Medicine 02/14/25 documented as of this encounter
--- OUTSIDE RECORDS SUMMARY | 2025-05-09 06:07 | XMS_ITS | Clinical Summary ---
Author Organization [facility] Healthcare Address [address] [place] [facility] [place] [address] Care Team Providers Care Save All Operator Name Role Phone Pj Sung MD Primary Care Provider [phone] Allergies Active Allergy Reactions Criticality Noted Date [...] titration study Managed by Dr John in [place] Assessment & Plan (04/10/2025 1:49 PM EDT): Still have only PAPT. Get original PSG.0 Assessment & Plan (08/01/2024 11:49 AM EDT): Get original PSG (only received PAPT). Assessment & Plan (01/11/2024 2:07 PM EST): Get sleep studies for our records - [place]. Also send to Gian [facility] (though not [...] [facility] [address] [facility] [address] [place] [address] Winnie Herron, VANESSA Benign essential tremor (Primary Dx); Neurogenic pain; Sequelae of cerebral infarction; Cervical paraspinal muscle spasm; JOSIAH (obstructive sleep apnea); Carotid stenosis, bilateral; Polyneuropathy 05/08/2025 Bamboo flowsheet [facility] [address] [place] [address] Winnie Herron NP 05/08/2025 Travel 04/25/2025 Telephone [facility] NE[facility]O [address] [facility] [address] [place] [address] Mulu Edgar MA 04/12/2025 11:20 AM EDT Office Visit [facility] [address] [facility] [address] [place] [address] Blaise Dc, DPJim Verruca plantaris (Primary Dx); Foot pain, right; Diabetes mellitus due to underlying condition with diabetic polyneuropathy, unspecified whether prison insulin use (HCC); Pain due to onychomycosis of toenails of both feet 04/12/2025 Bamboo flowsheet [facility] [address] [facility] [address] [place] [address] Blaise Dc DPM 04/12/2025 Travel 04/10/2025 12:45 PM EDT Office Visit [facility] NEUR B [address] [phone] Lenin Montoya MD Benign essential tremor (Primary Dx); Neurogenic pain; Sequelae of cerebral infarction; Cervical paraspinal muscle spasm; JOSIAH (obstructive sleep apnea); Carotid stenosis, bilateral 04/10/2025 Bamboo flowsheet [facility] [address] [place] [address] Lenin Montoya MD 04/10/2025 Travel 03/08/2025 9:20 AM EDT Office Visit [facility] [address] [facility] [address] [place] [phone] Blaise Dc DPM Verruca plantaris (Primary Dx); Foot pain, right; Diabetes mellitus due to underlying condition with diabetic polyneuropathy, 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); Pain due to onychomycosis of toenails of both feet 03/08/2025 Bamboo flowsheet [facility] [address] [facility] [address] [place] [phone] Blaise Dc DPM 03/08/2025 Travel from Last [...] EDT Office Visit [facility] [address] [facility] [address] [place] [phone] Blaise Dc DPM [address] [facility] [address] [place] [address] 07/10/2025 10:30 AM EDT Office Visit [facility] [address] [place] [address] Lenin Montoya MD [address] [id number] 09/11/2025 1:15 PM EDT Office Visit [facility] [address] [place] [address] Mercedes Joy MD [address] [place] [address] 10/09/2025 1:45 PM EST Office Visit [facility] NEUR B [address] [place] [address] Lenin Montoya MD [address] [phone] Health Maintenance Due Date Last Done Comments Pneumococcal Vaccine: 65+ Years Completed , 01/28/2015, 01/28/2015 Influenza Vaccine Completed 08/15/2024, , 08/18/2022, Additional history exists Insurance [facility]ICARE [facility] Care Teams Save All Operator Relationship Specialty Start Date End Date Pj Sung MD [address] [place] [address] PCP - General Family Medicine 12/02/23
--- OUTSIDE RECORDS SUMMARY | 2025-05-09 06:08 | XMS_ITS | Encounter Summary ---
Author Organization [facility] Address [address] [place] [address] Care Team Providers Care Shipping And Receiving Operator Name Role Phone Pj Sung MD Primary Care Provider [phone] Encounter Details Date Type Department Care Team (Late st Contact Info) Description 07/17/2022 Abstract [facility] [address] [place] [address] Cheyanne Ventura MA Social History [...] Description 05/10/2025 8:30 AM EDT Hospital Encounter [facility] Heart and Vascular Center Vascular Lab [address] [place] [phone] Mike Cisneros MD [address] [facility] [address] [facility] [place] [phone] Nonrheumatic aortic valve stenosis; Chronic diastolic congestive heart failure (CMS/HCC); Shortness of breath; Abnormal findings on diagnostic imaging of heart and coronary circulation 05/10/2025 10:30 AM EDT - 05/10/2025 11:30 AM EDT Surgery [facility] Heart and Vascular Center Vascular Lab [address] [place] [phone] Mike Cisneros MD [address] [facility] [place] [address] Coronary angiography [77110 (CPT )] 07/11/2025 1:30 PM EDT Follow-Up [facility] [address] [place] [phone] Jeff Hutton MD [address] [place], [place] [phone] documented as of this encounter Visit Diagnoses Not on filedocumented in this encounter Care Teams Shipping And Receiving Operator Relationship Specialty Start Date End Date Pj Sung MD [address] [facility] [place] [address] PCP - General 07/17/22 documented as of this encounter
--- OUTSIDE RECORDS SUMMARY | 2025-05-09 06:08 | XMS_ITS | Patient Health Record ---
Author Organization The [facility] [place] Address [address] [place] [address] Care Team Providers Care Desk Director Name Role Phone Erik Sung Primary Care Provider Allergies Allergen (clinical drug ingredient) Drug/Non Drug Allergy documented on EMR Reaction Allergy Type Onset Date Status simvastatin Simvastatin elevated liver enzymes Drug Allergy Active Results Component Value Reference Range Notes PROF CHEM 8 (BAS METB) Reviewed date:09/08/2024 12:39:03 PM Interpretation: Performing Lab: Notes/Report: [facility] , Sodium 139 136-145 mmol/L Potassium [...] Performing Lab: see note ML - [facility] LB Troponin I High Sensitivity Reviewed date:09/08/2024 12:39:03 PM Interpretation: Performing Lab: Notes/Report: [facility] , Troponin I High Sensitivity 14.8 4.0-76.1 pg/mL CUT-OFF POINTS HAVE BEEN ESTABLISHED BASED ON THE FOURTH UNIVERSAL DEFINITION OF MYOCARDIAL INFARCTION. THE UPPER REFERENCE LIMIT (URL) OF TROPONIN, DEFINED THE 99TH PERCENTILE OF cTnI DISTRIBUTION IN A REFERENCE POPULATION, HAS BEEN CONFIRMED THE DECISION THRESHOLD FOR VT DIAGNOSIS. 99TH PERCENTILE = 76.2 PG/ML NOTE: HIGH-SENSITIVITY TROPONIN ASSAY IS NOT INTENDED TO BE USED IN ISOLATION BUT SHOULD BE INTERPRETED IN CONJUNCTION WITH OTHER DIAGNOSTIC AND CLINICAL INFORMATION. Performing Lab: see note ML - [facility] LB CBC AUTO DIFF Reviewed date:09/08/2024 12:40:56 PM Interpretation: Performing Lab: Notes/Report: [facility] , White Blood Count 7.9 [...] Performing Lab: see note ML - [facility] LB XR chest 1V Reviewed date:08/16/2024 09:49:03 PM Interpretation: Performing Lab: Notes/Report: Source Facility: [place] [address] [place] [address] XRay Report Signed Patient: NADIR HEREDIA MR#: [id number] : 1940 Acct:[id number] Age/Sex: 84 / M ADM Date: 08/16/24 Loc: ER Attending Dr: Ordering Physician: Lotus Ace D.O. Date of Service: 08/16/24 Procedure(s): XR chest 1V Accession Number(s): [id number] cc: Van Sung M.D.; Lotus Ace D.O. The [place] [address] Patient Name: NADIR HEREDIA MRN: TBH:[id number] date: 1940 Sex: M Assigned Patient Location: ER Current Patient Location: ER Accession/Order Number: [id number] Exam Date: 08/16/2024 09:10 Report Date: 08/16/2024 [...] M.D. Signed By: 08/16/24933 DD/ 0 TD/TT: [facility] [place]: [place] [address] XRay Report Signed Patient: NADIR HEREDIA MR#: [id number] : 1940 Acct:[id number] Age/Sex: 84 / M ADM Date: 08/16/24 Loc: ER Attending Dr: Ordering Physician: Lotus Ace D.O. Date of Service: 08/16/24 Procedure(s): XR chest 1V Accession Number(s): [id number] cc: Van Sung M.D. ; Lotus Ace D.O. The [place] [address] Patient Name: NADIR HEREDIA MRN: [id number] date: 1940 Sex: M Assigned Patient Location: ER Current Patient Loca tion: ER Accession/Order Numb er: [id number] Exam Date: 09:10 Report Date: 08/16/2024 09:31 [...] M.D. Signed By: 08/16/24933 DD/ 0 TD/TT: [facility]: CT head/brain wo con Reviewed date:08/16/2024 09:49:03 PM Interpretation: Performing Lab: Notes/Report: Source Facility: [facility]-[address] [place] [address] [place] [address] CT Scan Report Signed Patient: NADIR HEREDIA MR#: [id number] : 1940 Acct:[id number] Age/Sex: 84 / M ADM Date: 08/16/24 Loc: ER Attending Dr: Ordering Physician: Lotus Ace D.O. Date of Service: 08/16/24 Procedure(s): CT head/brain wo con Accession Number(s): [id number] cc: Van Sung M.D. The [place] [address] Patient Name: NADIR HEREDIA MRN: TBH:[id number] date: 1940 Sex: M Assigned Patient Location: ER Current Patient Location: ER Accession/Order Number: [id number] Exam Date: 08/16/2024 09:08 Report Date: 08/16/2024 [...] M.D. Signed By: 08/16/24924 DD/ 1 TD/TT: [facility] [place]: [place] [address] CT Scan Report Signed Patient: NADIR HEREDIA MR#: [id number] : 1940 Acct:[id number] Age/Sex: 84 / M ADM Date: 08/16/24 Loc: ER Attending Dr: Ordering Physician: Lotus Ace D.O. Date of Service: 08/16/24 Procedure(s): CT head/brain wo con Accession Number(s): [id number] cc: Van Sung M.D. [place] [address] Patient Name: NADIR HEREDIA MRN: [facility]:[id number] date: 1940 Sex: M Assigned Patient Location: ER Current Patient Loca tion: ER Accession/Order Numb er: [id number] Exam Date: 09:08 Report Date: 08/16/2024 09:22 [...] M.D. Signed By: 08/16/24924 DD/ 1 TD/TT: [facility]: ECG 12 lead Reviewed date:08/19/2024 09:36:11 PM Interpretation: Performing Lab: Notes/Report: Source Facility: [place] [address] [place] [address] Electrocardiograph Report Signed Patient: NADIR HEREDIA MR#: [id number] : 1940 Acct:[id number] Age/Sex: 84 / M ADM Date: 08/16/24 Loc: [place] 217-[address]: Van Sung M.D. Ordering Physician: Lotus Ace D.O. Date of Service: 08/16/24 Procedure(s): ECG 12 lead Accession Number(s): [id number] cc: [facility] Test Date: 2024-08-16 Pat Name: NADIR HEREDIA Department: Room: - Gender: Male Cardiographer: : 1940 Requested By: VAN SUNG Order Number: [id number] Reading MD: VAN SUNG Measurements Intervals Mott Rate: 63 P: -09016 UT: -31063 QRS: 4 QRSD: 102 T: 40 QT: [...] Signed By: 08/18/24 0649 DD/ 0902 TD/TT: [facility] [place]: The [place] [id number] Electrocardiograph Report Signed Patient: NADIR HEREDIA MR#: [id number] : 1940 Acct:[id number] Age/Sex: 84 / M ADM Date: 08/16/24 Loc: MS 217-[address]: Gama Sung M.D. Ordering Physician: Lotus Ace D.O. Date of Service: 08/16/24 Procedure(s): ECG 12 lead Accession Number(s): [id number] cc: [facility] Test Date: 2024-08-16 Pat Name: NADIR HEREDIA Department: 34 Room: - Gender: Male Cardiographer: : 1940 Requ ested By: VAN SUNG Order Number: [id number] Reading MD: VAN SUNG Measurements Intervals Mott Rate: 63 P: -36792 UT: -20786 QRS: 4 QRSD: 102 T: 40 QT: 420 QTc: 427 Interpretive Statements 1210 Atrial fibrillation 3333 Anterolateral myocardial infarction, probably old 3433 Septal myocardi al infarction, probably old 7300 Indeterminate axis 9150 abnormal ECG Compared to ECG 10/10/2023 06:55:21 Indeterminate axis n ow present ST (T wave) deviatio n no longer present Myocardial infarct finding still present Electronically Rosen[place] d On 08-18-2024 6:48:37 EDT by VAN SUNG Dictated By: José Miguel Sung M.D. Signed By: 08/18/2449 DD/ 1 TD/TT: [facility]: SARS-CoV-2 Ag* Reviewed date:08/16/2024 09:49:03 PM Interpretation: Performing Lab: Notes/Report: [facility] , SARS-CoV-2 Ag NEGATIVE NEGATIVE [...] Performing Lab: see note ML - [facility] LB Troponin I High Sensitivity Reviewed date:08/16/2024 09:49:03 PM Interpretation: Performing Lab: Notes/Report: [facility] , Troponin I High Sensitivity 17.0 4.0-76.1 pg/mL CUT-OFF POINTS HAVE BEEN ESTABLISHED BASED ON THE FOURTH UNIVERSAL DEFINITION OF MYOCARDIAL INFARCTION. THE UPPER REFERENCE LIMIT (URL) OF TROPONIN, DEFINED THE 99TH PERCENTILE OF cTnI DISTRIBUTION IN A REFERENCE POPULATION, HAS BEEN CONFIRMED THE DECISION THRESHOLD FOR VT DIAGNOSIS. 99TH PERCENTILE = 76.2 PG/ML NOTE: HIGH-SENSITIVITY TROPONIN ASSAY IS NOT INTENDED TO BE USED IN ISOLATION BUT SHOULD BE INTERPRETED IN CONJUNCTION WITH OTHER DIAGNOSTIC AND CLINICAL INFORMATION. Performing Lab: see note - [facility] Prothrombin Time INR Reviewed date:08/16/2024 09:49:03 PM Interpretation: Performing Lab: Notes/Report: [facility] , Prothrombin Time 10.5 9.0-11.6 sec INR 0.99 DESIRED INR: 2.0-3.0 CONDITIONS NOT LISTED BELOW 2.5-3.5 FOR PROSTHETIC HEART VALVE REPLACEMENT 2.5-3.5 RECURRENT THROMBOSIS Performing Lab: see note - [facility] Blood Culture 2 Reviewed date:08/21/2024 08:32:56 PM Interpretation: Performing Lab: Notes/Report: [facility] , Blood Culture 2 See Below For Report Blood Culture 2 NG5D NO GROWTH AT 5 DAYS. Performing Lab: see note - [facility] PROF CHEM 8 (BAS METB) Reviewed date:11/11/2024 08:52:42 PM Interpretation: Performing Lab: Notes/Report: [facility] , Sodium 140 136-145 mmol/L Potassium [...] 8.5-10.1 mg/dL Performing Lab: see note - [facility] Blood Culture 1 Reviewed date:08/21/2024 08:32:56 PM Interpretation: Performing Lab: Notes/Report: [facility] , Blood Culture 1 See Below For Report Blood Culture 1 NG5D NO GROWTH AT 5 DAYS. Performing Lab: see note ML - [facility] LB UA (CLEAN or CATCH) CUTTING MACHINE TENDER DECORATIVE or M ICRO IF IND. Reviewed date:08/16/2024 09:49:03 PM Interpretation: Performing Lab: Notes/Report: [facility] , Color Urine LT. YELLOW YELLOW Clarity Urine CLEAR CLEAR Specific [place] Urine 1.010 1.005-1.025 pH Urine 7.0 5.0-9.0 Protein Urine NEGATIVE NEG/TRACE mg/dL Glucose Urine UA >=1000 NEGATIVE mg/dL Bilirubin Urine NEGATIVE NEGATIVE Ketones Urine NEGATIVE NEGATIVE mg/dL Blood Urine NEGATIVE NEGATIVE Nitrite Urine NEGATIVE NEGATIVE Urobilinogen Urine 0.2 0.2-1.0 EU/dL Leukocyte Esterase Urine NEGATIVE NEGATIVE Urine Microscopic Indicated NO Performing Lab: see note ML - [facility] LB PROF 14(COMP METB) Reviewed date:08/16/2024 09:49:03 PM Interpretation: Performing Lab: Notes/Report: [facility] , Sodium 138 136-145 mmol/L [...] 1.0 Performing Lab: see note ML - [facility] LB LACTATE or LACTIC ACID Reviewed date:08/16/2024 09:49:03 PM Interpretation: Performing Lab: Notes/Report: [facility] , Lactate/Lactic Acid 1.8 0.4-2.0 mmol/L Performing Lab: see note ML - [facility] LB CBC AUTO DIFF Reviewed date:08/16/2024 09:49:03 PM Interpretation: Performing Lab: Notes/Report: [facility] , White Blood Count 9.6 [...] Performing Lab: see note ML - [facility] LB BLOOD GASES BTY Reviewed date:08/16/2024 09:49:03 PM Interpretation: Performing Lab: Notes/Report: [facility] , pH ABG 7.451 7.350-7.450 ABG PCO2 38.3 35.0-45.0 mmHg PO2 ABG 72.2 80.0-100.0 mmHg HCO3 ABG 26.7 22.0-26.0 mmol/L Base Excess ABG 2.7 -2.0-2.0 mmol/L Oxygen Saturation ABG 94.8 Prince Test POSITIVE POSITIVE O2 Mode RA Puncture Site LR Performing Lab: see note ML - [facility] LB AMMONIA Reviewed date:08/16/2024 09:49:03 PM Interpretation: Performing Lab: Notes/Report: [facility] , Ammonia <10 11-32 umol/L Performing Lab: see note ML - [facility] LB UA RANDOM W or MICROSCOPIC Reviewed date:08/06/2024 09:17:32 PM Interpretation: Performing Lab: Notes/Report: [facility] , Color Urine LT. YELLOW YELLOW Clarity Urine CLEAR CLEAR Specific [place] Urine 1.010 1.005-1.025 pH Urine 7.0 5.0-9.0 [...] #/LPF Performing Lab: see note ML - [facility] PROF CHEM 8 (BAS METB) Reviewed date:08/06/2024 09:17:32 PM Interpretation: Performing Lab: Notes/Report: [facility] , Sodium 138 136-145 mmol/L Potassium 4.0 3.5-5.1 mmol/L Chloride 102 98-107 mmol/L Carbon Dioxide 28.4 21.0-32.0 mmol/L Anion Gap 11.6 Glucose 245 74-106 mg/dL Blood Urea Nitrogen 27.0 7.0-18.0 mg/dL Creatinine 1.56 0.70-1.30 mg/dL Estimated GFR ( Vira 52 >=60 Estimated GFR (Non- Coleen 43 >=60 BUN Creatinine Ratio 17.3 Calcium 9.1 8.5-10.1 mg/dL Performing Lab: see note ML - [facility] LB CBC AUTO DIFF Reviewed date:08/06/2024 09:17:32 PM Interpretation: Performing Lab: Notes/Report: [facility] , White Blood Count 7.9 [...] 10 3/uL Performing Lab: see note - [facility] LB VITAMIN D 25 [place] Reviewed date:06/19/2024 07:43:22 PM Interpretation: Performing Lab: Notes/Report: [facility] , Vitamin D 19.7 <20 ng/mL Vit D deficient 20-<30 ng/mL Vit D insufficient 30-100 ng/mL Vit D sufficient >100 ng/mL Potential Toxicity Performing Lab: see note [facility] LB URINE T PROTEIN CREAT RATIO Reviewed date:06/19/2024 07:43:22 PM Interpretation: Performing Lab: Notes/Report: [facility] , Total Protein Urine Random 7.8 <=11.9 mg/dL Creatinine Urine Random 53.15 20.00-30 0.00 mg/dL Protein Creatinine Ratio Urine 0.15 Performing Lab: see note ML - [facility] LB PROF CHEM 8 ([facility] ) Reviewed date:06/19/2024 07:43:22 PM Interpretation: Performing Lab: Notes/Report: [facility] , Sodium 145 136-145 mmol/L Potassium 4.1 3.5-5.1 mmol/L Chloride 107 98-107 mmol/L Carbon Dioxide 29.8 21.0-32.0 mmol/L Anion Gap 12.3 Glucose 226 74-106 mg/dL Blood Urea Nitrogen 32.0 7.0-18.0 mg/dL Creatinine 1.62 0.70-1.30 mg/dL Estimated GFR ( Vira 49 >=60 Estimated GFR (Non- Coleen 41 >=60 BUN Creatinine Ratio 19.8 Calcium 9.2 8.5-10.1 mg/dL Performing Lab: see note ML - [facility] LB PHOSPHORUS Reviewed date:06/19/2024 07:43:22 PM Interpretation: Performing Lab: Notes/Report: [facility] , Phosphorus 3.9 2.6-4.7 mg/dL Performing Lab: see note ML - [facility] LB MAGNESIUM Reviewed date:06/19/2024 07:43:22 PM Interpretation: Performing Lab: Notes/Report: [facility] , Magnesium 2.1 1.8-2.4 mg/dL Performing Lab: see note ML - [facility] LB HEMOGLOBIN Reviewed date:06/19/2024 07:43:22 PM Interpretation: Performing Lab: Notes/Report: [facility] , Hemoglobin 15.3 14.0-18.0 g/dL Performing Lab: see note ML - [facility] LB ALBUMIN Reviewed date:06/19/2024 07:43:22 PM Interpretation: Performing Lab: Notes/Report: [facility] , Albumin Level 3.4 3.4-5.0 g/dL Performing Lab: see note ML - [facility] LB CA echo doppler complete Reviewed date:06/11/2024 11:52:26 AM Interpretation: Performing Lab: Notes/Report: Source Facility: [facility]-[address] [place] [address] [place] [address] Cardiology Report Signed Patient: NADIR HEREDIA MR#: [id number] : 1940 Acct:[id number] Age/Sex: 84 / M ADM Date: 06/09/24 Loc: CARD Attending Dr: CLARIBEL PUGA Ordering Physician: CLARIBEL PUGA Date of Service: 06/09/24 Procedure(s): CA echo doppler complete Accession Number(s): [id number] cc: Van Sung M.D.; CLARIBEL PUGA Patient Name: NADIR HEREDIA MR#: [id number] : 1940 Exam Date: 06/09/2024 Ordering Doctor: [...] Traylor M.D. Signed By: 06/09/24 1516 DD/ 151 TD/TT: [employer] [place]: [place] [address] Cardiology Report Signed Patient: NADIR HEREDIA MR#: [id number] : 1940 Acct:[id number] Age/Sex: 84 / M ADM Date: 06/09/24 Loc: CARD Attending Dr: CLARIBEL PUGA Ordering Physician: CLARIBEL PUGA Date of Service: 06/09/24 Procedure(s): CA ech o doppler complete Accession Number(s): [id number] cc: Van Sung M.D. ; CLARIBEL PUGA Patient Name: NADIR HEREDIA MR#: [id number] : 1940 Exam Date: 06/09/2024 Ordering Doctor: [...] Signed By: 06/09/24 1516 DD/ 1515 TD/TT: [facility]: URINE T PROTEIN CREAT RATIO Reviewed date:05/23/2024 03:36:41 PM Interpretation: Performing Lab: Notes/Report: [facility] , Total Protein Urine Random <6.0 <=11.9 mg/dL Creatinine Urine Random 14.95 20.00-30 0.00 mg/dL Protein Creatinine Ratio Urine 0.40 Performing Lab: see note ML - [facility] LB PROF CHEM 8 (BAS METB) Reviewed date:05/23/2024 03:36:41 PM Interpretation: Performing Lab: Notes/Report: [facility] , Sodium 144 136-145 mmol/L [...] Performing Lab: see note ML - [facility] LB PHOSPHORUS Reviewed date:05/23/2024 03:36:41 PM Interpretation: Performing Lab: Notes/Report: [facility] , Phosphorus 4.1 2.6-4.7 mg/dL Performing Lab: see note ML - [facility] LB MAGNESIUM Reviewed date:05/23/2024 03:36:41 PM Interpretation: Performing Lab: Notes/Report: [facility] , Magnesium 2.2 1.8-2.4 mg/dL Performing Lab: see note ML - [facility] HEMOGLOBIN Reviewed date:05/23/2024 03:36:41 PM Interpretation: Performing Lab: Notes/Report: [facility] , Hemoglobin 15.0 14.0-18.0 g/dL Performing Lab: see note ML - [facility] LB GLYCOHEMOGLOBIN A1C Reviewed date:05/23/2024 03:36:41 PM Interpretation: Performing Lab: Notes/Report: [facility] , Glycohemoglobin A1C 8.3 4.5-6.2 % ADA RECOMMENDED LIMIT 4.0 - 6.0 ADA THERAPEUTIC TARGET < 7.0 ACTION SUGGESTED > 7.0 Estimated Average Glucose 192 Performing Lab: see note ML - [facility] LB ALBUMIN Reviewed date:05/23/2024 03:36:41 PM Interpretation: Performing Lab: Notes/Report: [facility] , Albumin Level 3.3 3.4-5.0 g/dL Performing Lab: see note ML - [facility] LB UA (CLEAN or CATCH) CUTTING MACHINE TENDER DECORATIVE or M ICRO IF IND. (Not yet reviewed by provider) Interpretation: Performing Lab: Notes/Report: [facility] , Color Urine LT. YELLOW YELLOW Clarity Urine CLEAR CLEAR Specific [place] Urine <=1.005 1.005-1.025 pH Urine 6.0 5.0-9.0 Protein Urine NEGATIVE NEG/TRACE mg/dL Glucose Urine UA >=1000 NEGATIVE mg/dL Bilirubin Urine NEGATIVE NEGATIVE Ketones Urine NEGATIVE NEGATIVE mg/dL Blood Urine NEGATIVE NEGATIVE Nitrite Urine NEGATIVE NEGATIVE Urobilinogen Urine 0.2 0.2-1.0 EU/dL Leukocyte Esterase Urine NEGATIVE NEGATIVE Urine Microscopic Indicated NO Performing Lab: see note ML - [facility] BNP (Not yet reviewed by pro vider) Interpretation: Performing Lab: Notes/Report: [facility] , NT Pro B Type Natriuretic Pept 6396.0 <=1800.0 pg/mL RESULTS CALLED TO MARIA LUZ CHAPMAN Performing Lab: see note ML - [facility] BNP Reviewed date:04/15/2025 04:42:25 PM Interpretation: Performing Lab: Notes/Report: [facility] , NT Pro B Type Natriuretic Pept 2805.0 <=1800.0 pg/mL RESULTS CALLED TO DR. SUNG Performing Lab: see note ML - [facility] BNP Reviewed date:01/18/2025 09:02:22 PM Interpretation: Performing Lab: Notes/Report: [facility] , NT Pro B Type Natriuretic Pept 2045.0 <=1800.0 pg/mL RESULTS CALLED TO cynthia valenzuela, terrazzo worker apprentice @BY Cecilia Elder at 1158 Performing Lab: see note ML - [facility] AMMONIA Reviewed date:01/18/2025 09:02:22 PM Interpretation: Performing Lab: Notes/Report: [facility] , Ammonia <10 11-32 umol/L Performing Lab: see note ML - [facility] UA DIP NONAUTO WO MICRO (810 02) - IN OFFICE Reviewed date:01/24/2025 06:29:49 PM Interpretation: Performing Lab: Notes/Report: COLOR yellow CLARITY clear GLUCOSE LARGE BILIRUBIN neg KETONE neg SPECIFIC GRAVITY 1.010 BLOOD TRACE PH 7 PROTEIN TRACE UROBILINOGEN neg NITRITE neg LEUKOCYTE ESTERASE neg Prothrombin Time INR Reviewed date:10/29/2024 08:20:36 PM Interpretation: Performing Lab: Notes/Report: [facility] , Prothrombin Time 10.5 9.0-11.6 sec INR 0.99 DESIRED INR: 2.0-3.0 CONDITIONS NOT LISTED BELOW 2.5-3.5 FOR PROSTHETIC HEART VALVE REPLACEMENT 2.5-3.5 RECURRENT THROMBOSIS Performing Lab: see note - [facility] LB PROF 14(COMP METB) Reviewed date:10/29/2024 08:20:36 PM Interpretation: Performing Lab: Notes/Report: [facility] , Sodium 137 136-145 mmol/L [...] 0.8 Performing Lab: see note ML - [facility] LB CBC AUTO DIFF Reviewed date:10/29/2024 08:20:36 PM Interpretation: Performing Lab: Notes/Report: [facility] , White Blood Count 7.5 4.0-11.0 10 [...] 3/uL Performing Lab: see note ML - [facility] CA echo doppler complete Reviewed date:10/18/2024 07:39:53 PM Interpretation: Performing Lab: Notes/Report: Source Facility: [place] [address] Cardiology Report Signed Patient: NADIR HEREDIA MR#: [id number] : 1940 Acct:[id number] Age/Sex: 84 / M ADM Date: 10/18/24 Loc: CARD Attending Dr: CLARIBEL PUGA Ordering Physician: CLARIBEL PUGA Date of Service: 10/18/24 Procedure(s): CA echo doppler complete Accession Number(s): [id number] cc: Van Sung M.D.; CLARIBEL PUGA Patient Name: NADIR HEREDIA MR#: [id number] : 1940 Exam Date: 10/18/2024 Ordering Doctor: [...] Signed By: 10/18/24 1426 DD/ 142 TD/TT: [facility] [place]: [place] [address] Cardiology Report Signed Patient: NADIR HEREDIA MR#: [id number] : 1940 Acct:[id number] Age/Sex: 84 / M ADM Date: 10/18/24 Loc: CARD Attending Dr: CLARIBEL PUGA Ordering Physician: CLARIBEL PUGA Date of Service: 10/18/24 Procedure(s): CA ech o doppler complete Accession Number(s): [id number] cc: Van Sung M.D. ; CLARIBEL PUGA Patient Name: NADIR HEREDIA MR#: [id number] : 1940 Exam Date: 10/18/2024 Ordering Doctor: [...] SEPTUM: LEFT ATRIUM: Severe dilatation. RIGHT ATRIUM: Sever e dilatation. RIGHT VENTRICLE: Mil d dilatation. Normal [...] 14:25 Dictated By: CLARIBEL PUGA Signed By: 10/18/241425 DD/ 24 TD/TT: [facility]: XR chest 1V Reviewed date:09/10/2024 09:12:18 PM Interpretation: Performing Lab: Notes/Report: Source Facility: [place] [address] XRay Report Signed Patient: NADIR HEREDIA MR#: [id number] : 1940 Acct:[id number] Age/Sex: 84 / M ADM Date: 09/08/24 Loc: ER Attending Dr: Ordering Physician: Akhil Dobson M.D. Date of Service: 09/08/24 Procedure(s): XR chest 1V Accession Number(s): [id number] cc: Van Sung M.D.; Akhil Dobson M.D. [place] [address] Patient Name: NADIR HEREDIA MRN: [id number] date: 1940 Sex: M Assigned Patient Location: ER Current Patient Location: ER Accession/Order Number: [id number] Exam Date: 09/08/2024 12:18 Report Date: 09/08/2024 [...] Signed By: 09/08/24 1303 DD/ 1301 TD/TT: [facility] [place]: [place] [address] XRay Report Signed Patient: NADIR HEREDIA MR#: [id number] : 1940 Acct:[id number] Age/Sex: 84 / M ADM Date: 09/08/24 Loc: ER Attending Dr: Ordering Physician: Akhil Dobson M.D. Date of Service: 09/08/24 Procedure(s): XR chest 1V Accession Number(s): [id number] cc: Van Sung M.D. ; Akhil Dobson M.D. The [address] [address] Patient Name: NADIR HEREDIA MRN: [id number] date: 1940 Sex: M Assigned Patient Location: ER Current Patient Loca tion: ER Accession/Order Numb er: [id number] Exam Date: 12:18 Report Date: 09/08/2024 13:01 [...] Signed By: 09/08/24 1303 DD/ 1301 TD/TT: [facility]: CT head/brain wo con Reviewed date:09/10/2024 09:12:17 PM Interpretation: Performing Lab: Notes/Report: Source Facility: [place] [address] CT Scan Report Signed Patient: NADIR HEREDIA MR#: [id number] : 1940 Acct:[id number] Age/Sex: 84 / M ADM Date: 09/08/24 Loc: ER Attending Dr: Ordering Physician: Akhil Dobson M.D. Date of Service: 09/08/24 Procedure(s): CT head/brain wo con Accession Number(s): [id number] cc: Van Sung M.D. [place] [address] Patient Name: NADIR HEREDIA MRN: [id number] date: 1940 Sex: M Assigned Patient Location: ER Current Patient Location: ER Accession/Order Number: [id number] Exam Date: 09/08/2024 12:45 Report Date: 09/08/2024 [...] Signed By: 09/08/24 1311 DD/ 1308 TD/TT: [facility] [place]: [place] [address] CT Scan Report Signed Patient: NADIR HEREDIA MR#: [id number] : 1940 Acct:[id number] Age/Sex: 84 / M ADM Date: 09/08/24 Loc: ER Attending Dr: Ordering Physician: Akhil Dobson M.D. Date of Service: 09/08/24 Procedure(s): CT head/brain wo con Accession Number(s): [id number] cc: Van Sung M.D. The [address] [address] Patient Name: NADIR HEREDIA MRN: [id number] date: 1940 Sex: M Assigned Patient Location: ER Current Patient Loca tion: ER Accession/Order Numb er: [id number] Exam Date: 12:45 Report Date: 09/08/2024 13:08 [...] Signed By: 09/08/24 1311 DD/ 1308 TD/TT: [facility]: ECG 12 lead Reviewed date:09/13/2024 06:22:56 PM Interpretation: Performing Lab: Notes/Report: Source Facility: [facility]-[address] [place] [address] [place] [address] Electrocardiograph Report Signed Patient: NADIR HEREDIA MR#: [id number] : 1940 Acct:[id number] Age/Sex: 84 / M ADM Date: 09/08/24 Loc: ER Attending Dr: Ordering Physician: Akhil Dobson M.D. Date of Service: 09/08/24 Procedure(s): ECG 12 lead Accession Number(s): [id number] cc: [facility] Test Date: 2024-09-08 Pat Name: NADIR HEREDIA Department: Room: - Gender: Male Cardiographer: : 1940 Requested By: VAN SUNG Order Number: [id number] Reading MD: NOEL DAWN Measurements Intervals Mott Rate: 72 P: -48208 UT: -43861 QRS: 97 QRSD: 94 T: 30 QT: 402 QTc: 426 Interpretive Statements 04251 Atrial fibrillation with aberrant conduction, or ventricular premature complexes 3433 Septal myocardial infarction, probably old 3533 Lateral myocardial infarction, probably old 7300 Indeterminate axis 9150 abnormal ECG Electronically Signed On 09-12-2024 22:59:43 EDT by NOEL DAWN Dictated By: Noel Dawn D.O. Signed By: 09/12/24 225 DD/ 1203 TD/TT: [facility] [place]: [place] [address] Electrocardiograph Report Signed Patient: NADIR HEREDIA MR#: [id number] : 1940 Acct:[id number] Age/Sex: 84 / M ADM Date: 09/08/24 Loc: ER Attending Dr: Ordering Physician: Akhil Dobson M.D. Date of Service: 09/08/24 Procedure(s): ECG 12 lead Accession Number(s): [id number] cc: [facility] Test Date: 2024-09-08 Pat Name: NADIR HEREDIA Department: 34 Room: - Gender: Male Cardiographer: : 1940 Requ ested By: VAN SUNG Order Number: [id number] Reading MD: NOEL DAWN Measurements Intervals Mott Rate: 72 P: -82805 UT: -00405 QRS: 97 QRSD: 94 T: 30 QT: 402 QTc: 426 Interpretive Statements 72519 Atrial fibrill ation with aberrant conduction, or ventricular premature complexes 3433 Septal myocardi al infarction, probably old 3533 Lateral myocard ial infarction, probably old 7300 Indeterminate axis 9150 abnormal ECG Electronically Rosenda d On 09-12-2024 22:59:43 EDT by NOEL DAWN Dictated By: Noel Dawn D.O. Signed By: 09/12/24 8757 DD/ 1205 TD/TT: [facility] [place]: UA RANDOM W or MICROSCOPIC Reviewed date:09/10/2024 09:12:17 PM Interpretation: Performing Lab: Notes/Report: [facility] , Color Urine LT. YELLOW YELLOW Clarity Urine CLEAR CLEAR Specific [place] Urine 1.010 1.005-1.025 pH Urine 7.0 5.0-9.0 [...] #/LPF Performing Lab: see note ML - [facility] LB PROF CHEM 8 (BAS METB) Reviewed date:10/29/2024 08:20:36 PM Interpretation: Performing Lab: Notes/Report: [facility] , Sodium 142 136-145 mmol/L [...] mg/dL Performing Lab: see note ML - [facility] LB PROF 14(COMP METB) Reviewed date:08/17/2024 08:52:06 PM Interpretation: Performing Lab: Notes/Report: [facility] , Sodium 139 136-145 mmol/L [...] 1.0 Performing Lab: see note ML - [facility] LB CBC AUTO DIFF Reviewed date:08/17/2024 08:52:06 PM Interpretation: Performing Lab: Notes/Report: [facility] , White Blood Count 9.3 [...] 3/uL Performing Lab: see note ML - [facility] LB CBC no Diff (Hemogram) Reviewed date:10/29/2024 08:20:36 PM Interpretation: Performing Lab: Notes/Report: [facility] , White Blood Count 15.4 [...] fL Performing Lab: see note ML - [facility] LB Type and Screen Reviewed date:10/29/2024 08:20:36 PM Interpretation: Performing Lab: Notes/Report: [facility] , Blood Type A Positive Antibody Screen NEGATIVE CBC AUTO DIFF Reviewed date:10/30/2024 02:21:51 PM Interpretation: Performing Lab: Notes/Report: [facility] , White Blood Count 14.0 [...] 3/uL Performing Lab: see note ML - [facility] PROF CHEM 8 (BAS METB) Reviewed date:10/30/2024 02:21:51 PM Interpretation: Performing Lab: Notes/Report: [facility] , Sodium 144 136-145 mmol/L [...] [facility] LB CBC AUTO DIFF Reviewed date:10/31/2024 12:23:54 PM Interpretation: Performing Lab: Notes/Report: [facility] , White Blood Count 11.9 [...] Performing Lab: see note ML - [facility] LB PROF CHEM 8 (BAS METB) Reviewed date:10/31/2024 12:23:54 PM Interpretation: Performing Lab: Notes/Report: [facility] , Sodium 140 136-145 mmol/L [...] Performing Lab: see note ML - [facility] LB ALBUMIN Reviewed date:12/24/2024 11:26:08 AM Interpretation: Performing Lab: Notes/Report: [facility] , Albumin Level 3.3 3.4-5.0 g/dL Performing Lab: see note ML - [facility] LB HEMOGLOBIN Reviewed date:12/24/2024 11:26:08 AM Interpretation: Performing Lab: Notes/Report: [facility] , Hemoglobin 12.1 14.0-18.0 g/dL Performing Lab: see note ML - [facility] LB MAGNESIUM Reviewed date:12/24/2024 11:26:08 AM Interpretation: Performing Lab: Notes/Report: [facility] , Magnesium 2.2 1.8-2.4 mg/dL Performing Lab: see note ML - [facility] LB PHOSPHORUS Reviewed date:12/24/2024 11:26:08 AM Interpretation: Performing Lab: Notes/Report: [facility] , Phosphorus 3.7 2.6-4.7 mg/dL Performing Lab: see note ML - [facility] LB PROF CHEM 8 (BAS METB) Reviewed date:12/24/2024 11:26:08 AM Interpretation: Performing Lab: Notes/Report: [facility] , Sodium 142 136-145 mmol/L [...] 8.5-10.1 mg/dL Performing Lab: see note - [facility] LB URINE T PROTEIN CREAT RATIO Reviewed date:12/24/2024 11:26:08 AM Interpretation: Performing Lab: Notes/Report: [facility] , Total Protein Urine Random 14.3 <=11.9 mg/dL Creatinine Urine Random 52.46 20.00-30 0.00 mg/dL Protein Creatinine Ratio Urine 0.27 Performing Lab: see note [facility] LB VITAMIN D 25 OH Reviewed date:12/24/2024 11:26:08 AM Interpretation: Performing Lab: Notes/Report: [facility] , Vitamin D 19.7 <20 ng/mL Vit D deficient 20-<30 ng/mL Vit D insufficient 30-100 ng/mL Vit D sufficient >100 ng/mL Potential Toxicity Performing Lab: see note [facility] LB CBC AUTO DIFF Reviewed date:01/18/2025 09:02:22 PM Interpretation: Performing Lab: Notes/Report: [facility] , White Blood Count 9.0 [...] 3/uL Performing Lab: see note ML - [facility] FREE T3 Reviewed date:01/18/2025 09:02:22 PM Interpretation: Performing Lab: Notes/Report: [facility] Free T3 2.15 2.18-3.98 pg/mL Performing Lab: see note ML - [facility] PROF 14(COMP METB) Reviewed date:01/18/2025 09:02:22 PM Interpretation: Performing Lab: Notes/Report: [facility] , Sodium 142 136-145 mmol/L [...] 1.0 Performing Lab: see note ML - [facility] LB T4 Reviewed date:01/18/2025 09:02:22 PM Interpretation: Performing Lab: Notes/Report: [facility] , T4 Thyroxine 7.00 4.50-12.10 ug/dL Performing Lab: see note ML - [facility] LB TSH Reviewed date:01/18/2025 09:02:22 PM Interpretation: Performing Lab: Notes/Report: [facility] , Thyroid Stimulating Hormone 1.472 0.358-3.740 uIU/mL Performing Lab: see note - [facility] LB White Blood Cells Reviewed date:01/25/2025 07:33:24 [...] 4 See Below For Report Result 4 PRECISION AGRICULTURE SPECIALIST Performing Lab: see note LC - [facility] [...] FOLLOW Lower Respiratory Culture Performed at: - [facility] [place] Lower Respiratory Culture WILL FOLLOW Lower Respiratory Culture [address], [place] [id number] Lower Respiratory Culture WILL FOLLOW Lower Respiratory Culture Insole Channeler: Asael Pressley PhD, Phone: [phone] Lower Respiratory Culture WILL FOLLOW Performing Lab: see note LC - [facility] LB SEE REPORT - Cathead Operator Id information not found for OBX-specific type proof reproducer legend BNP Reviewed date:02/14/2025 07:52:08 PM Interpretation: Performing Lab: Notes/Report: [facility] , NT Pro B Type Natriuretic Pept 1616.0 <=1800.0 pg/mL Performing Lab: see note ML - [facility] LB CBC AUTO DIFF Reviewed date:02/14/2025 07:52:08 PM Interpretation: Performing Lab: Notes/Report: [facility] , White Blood Count 8.1 [...] 3/uL Performing Lab: see note ML - [facility] LB DIRECT LDL Reviewed date:02/14/2025 07:52:08 PM Interpretation: Performing Lab: Notes/Report: [facility] , LDL Cholesterol Direct 120 <100 mg/dl OPTIMAL 100-129 mg/dl NEAR OR ABOVE OPTIMAL 130-159 mg/dl BORDERLINE HIGH 160-189 mg/dl HIGH >190 mg/dl VERY HIGH Performing Lab: see note ML - [facility] LB GLYCOHEMOGLOBIN A1C Reviewed date:02/14/2025 07:52:08 PM Interpretation: Performing Lab: Notes/Report: [facility] , Glycohemoglobin A1C 11.1 4.5-6.2 % ADA RECOMMENDED LIMIT 4.0 - 6.0 ADA THERAPEUTIC TARGET < 7.0 ACTION SUGGESTED > 7.0 Estimated Average Glucose 272 Performing Lab: see note ML - [facility] LB MAGNESIUM Reviewed date:02/14/2025 07:52:08 PM Interpretation: Performing Lab: Notes/Report: [facility] , Magnesium 2.0 1.8-2.4 mg/dL Performing Lab: see note [facility] LB PROF 14(COMP METB) Reviewed date:02/14/2025 07:52:08 PM Interpretation: Performing Lab: Notes/Report: [facility] , Sodium 139 136-145 mmol/L [...] 1.0 Performing Lab: see note ML - [facility] LB UA (CLEAN or CATCH) CUTTING MACHINE TENDER DECORATIVE or M ICRO IF IND. Reviewed date:02/14/2025 07:52:08 PM Interpretation: Performing Lab: Notes/Report: [facility] , Color Urine LT. YELLOW YELLOW Clarity Urine CLEAR CLEAR Specific [place] Urine 1.010 1.005-1.025 pH Urine 7.0 5.0-9.0 Protein Urine NEGATIVE NEG/TRACE mg/dL Glucose Urine UA >=1000 NEGATIVE mg/dL Bilirubin Urine NEGATIVE NEGATIVE Ketones Urine NEGATIVE NEGATIVE mg/dL Blood Urine NEGATIVE NEGATIVE Nitrite Urine NEGATIVE NEGATIVE Urobilinogen Urine 0.2 0.2-1.0 EU/dL Leukocyte Esterase Urine NEGATIVE NEGATIVE Urine Microscopic Indicated NO Performing Lab: see note ML - [facility] LB Prothrombin Time INR Reviewed date:02/14/2025 07:52:08 PM Interpretation: Performing Lab: Notes/Report: [facility] , Prothrombin Time 10.7 9.0-11.6 sec INR 1.01 DESIRED INR: 2.0-3.0 CONDITIONS NOT LISTED BELOW 2.5-3.5 FOR PROSTHETIC HEART VALVE REPLACEMENT 2.5-3.5 RECURRENT THROMBOSIS Performing Lab: see note ML - [facility] Troponin I High Sensitivity Reviewed date:02/14/2025 07:52:08 PM Interpretation: Performing Lab: Notes/Report: [facility] , Troponin I High Sensitivity 15.2 4.0-76.1 pg/mL CUT-OFF POINTS HAVE BEEN ESTABLISHED BASED ON THE FOURTH UNIVERSAL DEFINITION OF MYOCARDIAL INFARCTION. THE UPPER REFERENCE LIMIT (URL) OF TROPONIN, DEFINED THE 99TH PERCENTILE OF cTnI DISTRIBUTION IN A REFERENCE POPULATION, HAS BEEN CONFIRMED THE DECISION THRESHOLD FOR VT DIAGNOSIS. 99TH PERCENTILE = 76.2 PG/ML NOTE: HIGH-SENSITIVITY TROPONIN ASSAY IS NOT INTENDED TO BE USED IN ISOLATION BUT SHOULD BE INTERPRETED IN CONJUNCTION WITH OTHER DIAGNOSTIC AND CLINICAL INFORMATION. Performing Lab: see note ML - [facility] LB ECG 12 lead Reviewed date:02/14/2025 07:52:08 PM Interpretation: Performing Lab: Notes/Report: Source Facility: [facility]-[address] [place] [address] [place] [address] Electrocardiograph Report Signed Patient: NADIR HEREDIA MR#: [id number] : 1940 Acct:[id number] Age/Sex: 85 / M ADM Date: 02/14/25 Loc: MS 203-[address]: Van Sung M.D. Ordering Physician: Josie Astudillo Date of Service: 02/14/25 Procedure(s): ECG 12 lead Accession Number(s): [id number] cc: [facility] Test Date: 2025-02-14 Pat Name: NADIR HEREDIA Department: Room: - Gender: Male Cardiographer: : 1940 Requested By: 1854 Order Number: [id number] Reading MD: CLARIBEL PUGA M.D. Measurements Intervals Mott Rate: 75 P: -09293 UT: -88129 QRS: -60 QRSD: 100 T: 68 QT: [...] Signed By: 02/14/25 1728 DD/ 1008 TD/TT: [employer]: [place] [address] Electrocardiograph Report Signed Patient: NADIR HEREDIA MR#: [id number] : 1940 Acct:[id number] Age/Sex: 85 / M ADM Date: 02/14/25 Loc: MS 203-[address]: Gama Sung M.D. Ordering Physician: Josie Astudillo Date of Service: 02/14/25 Procedure(s): ECG 12 lead Accession Number(s): [id number] cc: [facility] Test Date: 2025-02-14 Pat Name: NADIR HEREDIA Department: 34 Room: - Gender: Male Cardiographer: : 1940 Oren mayes By: 1854 Order Number: [id number] Reading MD: CLARIBEL PUGA M.D. Measurements Intervals Mott Rate: 75 P: -51776 UT: -96685 QRS: -60 QRSD: 100 T: 68 QT: [...] Signed By: 02/14/25 1728 DD/ 1008 TD/TT: [facility]: MR head/brain wo con Reviewed date:02/14/2025 07:52:09 PM Interpretation: Performing Lab: Notes/Report: Source Facility: [place] [address] Magnetic Resonance Report Signed Patient: NADIR HEREDIA MR#: [id number] : 1940 Acct:[id number] Age/Sex: 85 / M ADM Date: 02/14/25 Loc: MRI Attending Dr: Van Sung M.D. Ordering Physician: Van Sung M.D. Date of Service: 02/14/25 Procedure(s): MR head/brain wo con Accession Number(s): [id number] cc: Van Sung M.D. [place] [address] Patient Name: NADIR HEREDIA MRN: [facility]:[id number] date: 1940 Sex: M Assigned Patient Location: MRI Current Patient Location: MRI Accession/Order Number: [id number] Exam Date: 02/14/2025 08:47 Report Date: 02/14/2025 [...] Radha Wright M.D.02/14/2025 9:20 AM Dictation Location: [place] [address] Electronically authenticated by: [id number] Y Date: 02/14/2025 09:20 Dictated By: Radha Wright M.D. Signed By: 02/14/25921 DD/ 9 TD/TT: [employer]: [place] [address] Magnetic Resonance Report Signed Patient: NADIR HEREDIA MR#: [id number] : 1940 Acct:[id number] Age/Sex: 85 / M ADM Date: 02/14/25 Loc: MRI Attending Dr: Gama Sung M.D. Ordering Physician: Van Sung M.D. Date of Service: 02/14/25 Procedure(s): MR head/brain wo con Accession Number(s): [id number] cc: Van Sung M.D. The [place] [address] Patient Name: NADIR HEREDIA MRN: [facility]:[id number] date: 1940 Sex: M Assigned Patient Location: MRI Current Patient Loca tion: MRI Accession/Order Numb er: [id number] Exam Date: 02/14/2025 08:47 Report Date: 02/14/2025 [...] Radha Wright M.D.02/14/2025 9:20 AM Dictation Location: [place] [address] Electronically authenticated by: [id number] Y Date: 02/14/2025 09:20 Dictated By: Radha Wright M.D. Signed By: 02/14/25921 DD/ 9 TD/TT: [facility] [employer]: [place] echo doppler complete Reviewed date:02/15/2025 05:24:30 PM Interpretation: Performing Lab: Notes/Report: Source Facility: [place] [address] [address] Cardiology Report Signed Patient: NADIR HEREDIA MR#: [id number] : 1940 Acct:[id number] Age/Sex: 85 / M ADM Date: 02/14/25 Loc: MS 203-[address]: Van Sung M.D. Ordering Physician: Van Sung M.D. Date of Service: 02/15/25 Procedure(s): CA echo doppler complete Accession Number(s): [id number] cc: Van Sung M.D. Patient Name: NADIR HEREDIA MR#: [id number] : 1940 Exam Date: 02/15/2025 Ordering Doctor: [...] Signed By: 02/15/25 1632 DD/ 1631 TD/TT: [facility] [place]: [place] [address] Cardiology Report Signed Patient: NADIR HEREDIA MR#: [id number] : 1940 Acct:[id number] Age/Sex: 85 / M ADM Date: 02/14/25 Loc: MS 203-[address]: Gama Sung M.D. Ordering Physician: Van Sung M.D. Date of Service: 02/15/25 Procedure(s): CA ech o doppler complete Accession Number(s): [id number] cc: Van Sung M.D. Patient Name: NADIR HEREDIA MR#: [id number] : 1940 Exam Date: 02/15/2025 Ordering Doctor: [...] Reduced right ventricular systolic function. TRICUSPID VALVE: No rmal mobility and thickness. No stenosis with mild [...] Signed By: 02/15/25 1632 DD/ 1631 TD/TT: [facility]: CBC AUTO DIFF Reviewed date:02/18/2025 03:43:48 PM Interpretation: Performing Lab: Notes/Report: [facility] , White Blood Count 8.2 [...] 3/uL Performing Lab: see note ML - [facility] LB PROF CHEM 8 (BAS METB) Reviewed date:02/18/2025 03:43:48 PM Interpretation: Performing Lab: Notes/Report: [facility] , Sodium 140 136-145 mmol/L [...] mg/dL Performing Lab: see note ML - [facility] LB BNP Reviewed date:03/08/2025 07:11:26 PM Interpretation: Performing Lab: Notes/Report: [facility] , NT Pro B Type Natriuretic Pept 2783.0 <=1800.0 pg/mL RESULTS CALLED TO RAULITO ROBERTO RN Performing Lab: see note - [facility] LB CBC AUTO DIFF Reviewed date:03/08/2025 07:11:26 PM Interpretation: Performing Lab: Notes/Report: [facility] , White Blood Count 7.8 [...] Performing Lab: see note ML - [facility] LB PROF CHEM 8 (BAS METB) Reviewed date:03/08/2025 07:11:26 PM Interpretation: Performing Lab: Notes/Report: [facility] , Sodium 139 136-145 mmol/L [...] Performing Lab: see note ML - [facility] LB Troponin I High Sensitivity Reviewed date:03/08/2025 07:11:26 PM Interpretation: Performing Lab: Notes/Report: [facility] , Troponin I High Sensitivity 15.5 4.0-76.1 pg/mL CUT-OFF POINTS HAVE BEEN ESTABLISHED BASED ON THE FOURTH UNIVERSAL DEFINITION OF MYOCARDIAL INFARCTION. THE UPPER REFERENCE LIMIT (URL) OF TROPONIN, DEFINED THE 99TH PERCENTILE OF cTnI DISTRIBUTION IN A REFERENCE POPULATION, HAS BEEN CONFIRMED THE DECISION THRESHOLD FOR VT DIAGNOSIS. 99TH PERCENTILE = 76.2 PG/ML NOTE: HIGH-SENSITIVITY TROPONIN ASSAY IS NOT INTENDED TO BE USED IN ISOLATION BUT SHOULD BE INTERPRETED IN CONJUNCTION WITH OTHER DIAGNOSTIC AND CLINICAL INFORMATION. Performing Lab: see note - [facility] LB ECG 12 lead Reviewed date:03/08/2025 08:58:48 PM Interpretation: Performing Lab: Notes/Report: Source Facility: [place] [address] [place] [address] Electrocardiograph Report Signed Patient: NADIR HEREDIA MR#: [id number] : 1940 Acct:[id number] Age/Sex: 85 / M ADM Date: 03/08/25 Loc: ER Attending Dr: Ordering Physician: Akhil Dobson M.D. Date of Service: 03/08/25 Procedure(s): ECG 12 lead Accession Number(s): [id number] cc: [facility] Test Date: 2025-03-08 Pat Name: NADIR HEREDIA Department: Room: - Gender: Male Cardiographer: : 1940 Requested By: 1030 Order Number: [id number] Cristina MD: CLARIBEL PUGA M.D. Measurements Intervals Mott Rate: 70 P: -75293 UT: -47419 QRS: 48 QRSD: 100 T: 26 QT: 414 QTc: 435 Interpretive Statements 89839 Atrial fibrillation with aberrant conduction, or ventricular premature complexes 3113 Cannot rule out anterior myocardial infarction, probably old [address] depression, probably digitalis effect 9150 abnormal ECG Compared to ECG 02/14/2025 10:08:55 Ventricular premature complex(es) now present Aberrant conduction of supraventricular beat(s) now present Electronically Signed On 03-08-2025 20:43:48 EDT by CLARIBEL PUGA M.D. Dictated By: CLARIBEL PUGA Signed By: 03/08/252042 DD/ 4 TD/TT: [employer] [place]: [place] [address] Electrocardiograph Report Signed Patient: NADIR HEREDIA MR#: [id number] : 1940 Acct:[id number] Age/Sex: 85 / M ADM Date: 03/08/25 Loc: ER Attending Dr: Ordering Physician: Akhil Dobson M.D. Date of Service: 03/08/25 Procedure(s): ECG 12 lead Accession Number(s): [id number] cc: [facility] Test Date: 2025-03-08 Pat Name: NADIR HEREDIA Department: 34 Room: - Gender: Male Cardiographer: : 1940 Requested By: 1030 Order Number: [id number] Reading MD: CLARIBEL PUGA M.D. Measurements Intervals Mott Rate: 70 P: -27191 UT: -63549 QRS: 48 QRSD: 100 T: 26 QT: 414 QTc: 435 Interpretive Statements 36612 Atrial fibrill ation with aberrant conduction, or ventricular premature complexes 3113 Cannot rule out anterior myocardial infarction, probably old [address] depression, probably digitalis effect 9150 abnormal ECG Compared to ECG 02/14/2025 10:08:55 Ventricular prematur e complex(es) now present Aberrant conduction of supraventricular beat(s) now present Electronically Rosenda d On 03-08-2025 20:43:48 EDT by CLARIBEL PUGA M.D. Dictated By: CLARIBEL PUGA Signed By: 03/08/252042 DD/ 4 TD/TT: [facility]: Troponin I High Sensitivity Reviewed date:03/08/2025 07:11:26 PM Interpretation: Performing Lab: Notes/Report: [facility] , Troponin I High Sensitivity 13.2 4.0-76.1 pg/mL CUT-OFF POINTS HAVE BEEN ESTABLISHED BASED ON THE FOURTH UNIVERSAL DEFINITION OF MYOCARDIAL INFARCTION. THE UPPER REFERENCE LIMIT (URL) OF TROPONIN, DEFINED THE 99TH PERCENTILE OF cTnI DISTRIBUTION IN A REFERENCE POPULATION, HAS BEEN CONFIRMED THE DECISION THRESHOLD FOR VT DIAGNOSIS. 99TH PERCENTILE = 76.2 PG/ML NOTE: HIGH-SENSITIVITY TROPONIN ASSAY IS NOT INTENDED TO BE USED IN ISOLATION BUT SHOULD BE INTERPRETED IN CONJUNCTION WITH OTHER DIAGNOSTIC AND CLINICAL INFORMATION. Performing Lab: see note ML - [facility] PROF CHEM 8 (BAS METAscencion) Reviewed date:04/15/2025 04:42:40 PM Interpretation: Performing Lab: Notes/Report: [facility] , Sodium 144 136-145 mmol/L [...] Performing Lab: see note ML - [facility] BNP (Not yet reviewed by pro vider) Interpretation: Performing Lab: Notes/Report: [facility] , NT Pro B Type Natriuretic Pept 6214.0 <=1800.0 pg/mL RESULTS CALLED TO DR. NASH CARABALLO at 1926 Performing Lab: see note ML - [facility] CBC AUTO DIFF (Not yet revie wed by provider) Interpretation: Performing Lab: Notes/Report: [facility] , White Blood Count 8.1 [...] Performing Lab: see note ML - [facility] LB PROF 14(COMP METB) (Not yet reviewed by provider) Interpretation: Performing Lab: Notes/Report: [facility] , Sodium 139 136-145 mmol/L [...] Performing Lab: see note ML - [facility] LB PROF CHEM 8 (BAS METB) (Not yet reviewed by provider) Interpretation: Performing Lab: Notes/Report: [facility] , Sodium 139 136-145 mmol/L Potassium 4.7 3.5-5.1 mmol/L Chloride 103 98-107 mmol/L Carbon Dioxide 28.2 21.0-32.0 mmol/L Anion Gap 12.5 Glucose 175 74-106 mg/dL Blood Urea Nitrogen 30.0 7.0-18.0 mg/dL Creatinine 1.90 0.70-1.30 mg/dL Estimated GFR ( Vira 41 >=60 mL/min/1.73m 2 Estimated GFR (Non- Coleen 34 >=60 mL/min/1.73m 2 BUN Creatinine Ratio 15.8 Calcium 9.0 8.5-10.1 mg/dL Performing Lab: see note ML - [facility] LB Troponin I High Sensitivity (Not yet reviewed by provider) Interpretation: Performing Lab: Notes/Report: [facility] , Troponin I High Sensitivity 17.0 4.0-76.1 pg/mL CUT-OFF POINTS HAVE BEEN ESTABLISHED BASED ON THE FOURTH UNIVERSAL DEFINITION OF MYOCARDIAL INFARCTION. THE UPPER REFERENCE LIMIT (URL) OF TROPONIN, DEFINED THE 99TH PERCENTILE OF cTnI DISTRIBUTION IN A REFERENCE POPULATION, HAS BEEN CONFIRMED THE DECISION THRESHOLD FOR VT DIAGNOSIS. 99TH PERCENTILE = 76.2 PG/ML NOTE: HIGH-SENSITIVITY TROPONIN ASSAY IS NOT INTENDED TO BE USED IN ISOLATION BUT SHOULD BE INTERPRETED IN CONJUNCTION WITH OTHER DIAGNOSTIC AND CLINICAL INFORMATION. Performing Lab: see note ML - [facility] LB ECG 12 lead (Not yet reviewe d by provider) Interpretation: Performing Lab: Notes/Report: Source Facility: [facility]-[address] [place] [address] [place] [address] Electrocardiograph Report Signed Patient: NADIR HEREDIA MR#: [id number] : 1940 Acct:[id number] Age/Sex: 85 / M ADM Date: 05/08/25 Loc: ER Attending Dr: Ordering Physician: Akhil Dobson M.D. Date of Service: 05/08/25 Procedure(s): ECG 12 lead Accession Number(s): [id number] cc: [facility] Test Date: 2025-05-08 Pat Name: NADIR HEREDIA Department: Room: - Gender: Male Cardiographer: : 1940 Requested By: 1030 Order Number: [id number] Reading MD: CLARIBEL PUGA M.D. Measurements Intervals Mott Rate: 70 P: -27665 UT: -54548 QRS: 66 QRSD: 94 T: 66 QT: 408 QTc: 429 Interpretive Statements 1210 Atrial fibrillation 3433 Septal myocardial infarction, probably old [address] depression, probably digitalis effect 9150 abnormal ECG Compared to ECG 03/08/2025 09:45:12 Aberrant conduction of supraventricular beat(s) no longer present Myocardial infarct finding still present ST (T wave) deviation still present Electronically Signed On 05-08-2025 22:01:26 EDT by CLARIBEL PUGA M.D. Dictated By: CLARIBEL PUGA Signed By: 05/08/25 2201 DD/ 1840 TD/TT: [facility] [employer]: [place] [address] Electrocardiograph Report Signed Patient: NADIR HEREDIA MR#: [id number] : 1940 Acct:[id number] Age/Sex: 85 / M ADM Date: 05/08/25 Loc: ER Attending Dr: Ordering Physician: Akhil Dobson M.D. Date of Service: 05/08/25 Procedure(s): ECG 12 lead Accession Number(s): [id number] cc: [facility] Test Date: 2025-05-08 Pat Name: NADIR HEREDIA Department: 34 Room: - Gender: Male Cardiographer: : 1940 Requ ested By: 1030 Order Number: [id number] Reading MD: CLARIBEL PUGA M.D. Measurements Intervals Mott Rate: 70 P: -71463 UT: -87528 QRS: 66 QRSD: 94 T: 66 QT: 408 QTc: 429 Interpretive Statements 1210 Atrial fibrillation 3433 Septal myocardi al infarction, probably old [address] depression, probably digitalis effect 9150 abnormal ECG Compared to ECG 03/08/2025 09:45:12 Aberrant conduction of supraventricular beat(s) no longer present Myocardial infarct finding still present ST (T wave) deviatio n still present Electronically Rosenda d On 05-08-2025 22:01:26 EDT by CLARIBEL PUGA M.D. Dictated By: CLARIBEL PUGA Signed By: 05/08/252200 DD/ 39 TD/TT: [employer]: CBC AUTO DIFF (Not yet revie wed by provider) Interpretation: Performing Lab: Notes/Report: [facility] , White Blood Count 9.0 4.0-11.0 10 3/uL Red Blood Count 3.76 4.70-6.10 10 6/uL Hemoglobin 9.9 14.0-18.0 g/dL Hematocrit 31.6 42.0-54.0 % Mean Corpuscular Volume 84.0 80.0-94.0 fL Mean Corpuscular Hemoglobin 26.3 25.9-34.0 pg Mean Corpuscular HGB Conc 31.3 29.9-35.2 g/dL Red Cell Distribution Width 19.0 11.0-15.0 % Platelet Count 287 150-450 10 3/uL Mean Platelet Volume 10.4 9.5-13.5 fL Neutrophils Percent Auto 74.5 43.0-75.0 % Lymphocytes Percent Auto 10.2 20.5-60.0 % Monocytes Percent Auto 12.9 1.7-12.0 % Eosinophils Percent Auto 1.4 0.9-7.0 % Basophils Percent Auto 0.3 0.2-2.0 % Immature Granulocytes Pct Auto 0.7 0.0-0.5 % Neutrophils Absolute Auto 6.7 1.4-6.5 10 3/uL Lymphocytes Absolute Auto 0.9 1.2-3.8 10 3/uL Monocytes Absolute Auto 1.2 0.3-0.8 10 3/uL Eosinophils Absolute Auto 0.1 0.0-0.7 10 3/uL Basophils Absolute Auto 0.0 0.0-0.1 10 3/uL Immature Granulocytes Abs Auto 0.06 0.00-0.03 10 3/uL Performing Lab: see note ML - [facility] LB Troponin I High Sensitivity (Not yet reviewed by provider) Interpretation: Performing Lab: Notes/Report: [facility] , Troponin I High Sensitivity 16.4 4.0-76.1 pg/mL CUT-OFF POINTS HAVE BEEN ESTABLISHED BASED ON THE FOURTH UNIVERSAL DEFINITION OF MYOCARDIAL INFARCTION. THE UPPER REFERENCE LIMIT (URL) OF TROPONIN, DEFINED THE 99TH PERCENTILE OF cTnI DISTRIBUTION IN A REFERENCE POPULATION, HAS BEEN CONFIRMED THE DECISION THRESHOLD FOR VT DIAGNOSIS. 99TH PERCENTILE = 76.2 PG/ML NOTE: HIGH-SENSITIVITY TROPONIN ASSAY IS NOT INTENDED TO BE USED IN ISOLATION BUT SHOULD BE INTERPRETED IN CONJUNCTION WITH OTHER DIAGNOSTIC AND CLINICAL INFORMATION. Performing Lab: see note ML - [facility] LB CBC AUTO DIFF Reviewed date:02/15/2025 05:24:30 PM Interpretation: Performing Lab: Notes/Report: [facility] , White Blood Count 5.4 [...] Performing Lab: see note ML - [facility] LB PROF CHEM 8 (CYRUS RAMIREZ) Reviewed date:02/15/2025 05:24:30 PM Interpretation: Performing Lab: Notes/Report: [facility] , Sodium 141 136-145 mmol/L [...] Performing Lab: see note ML - [facility] Reason For Referral No Information Medications Medication [...] DAVID TWICE A DAY for 90 Active Pioglitazone [...] 500 MG TAKE 1 TABLET BY MO [facility] EVERY DAY FOR 30 DAYS for 30 [...] 4 MG TAKE 2 TABLETS BY MO [facility] EVERY DAY for 90 days Active Escitalopram Oxalate 5 MG TAKE 1 TABLET BY MOUTH EVERY DAY FOR 30 DAYS for 90 Active Ezetimibe 10 MG TAKE 1 TABLET BY DAVID TH ONCE DAILY for 90 Active Diabetic Shoe [...] Administration Date Status Comme nts Flu, Fluad (1821-3233) (66810) 65 yrs+, single-dose syringe IM Intramuscular 08/20/2023 Administered Flu, Fluad (01584) 65 yrs and older, single-dose syringe IM [...] Risk Notes Problem Dermatochalasis of both eyelids (09912481150831630 ) Dermatochalasis of both eyelids (374.87) Active confirmed Problem 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 Problem Overweight (872062234) Overweight (E66.3) Active confirmed Problem Generalized anxiety disorder (94220570) Generalized anxiety disorder (F41.1) Active confirmed Problem 46949647 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) Active confirmed Problem 94805062 Nonrheumatic aortic (valve) stenosis (I35.0) Active confirmed Problem Aortic valve disorder (7063619) Other nonrheumatic aortic valve disorders (I35.8) Active confirmed Problem 837354625 Acute diastolic (congestive) heart failure (I50.31) Active confirmed Problem Acute combined systolic and diastolic heart failure (297774045868003) 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 confirmed Problem 19660988 Polyp of colon (K63.5) Active confirmed Problem Chronic kidney disease stage 3 (disorder) (276078908) Chronic kidney disease, stage 3 (moderate) (N18.3) Active confirmed Problem Balanitis (56952215) Balanitis (N48.1) Active confirmed Problem 00154221 Bradycardia, unspecified (R00.1) Active confirmed Problem Shortness of breath (223606812) Shortness of breath (R06.02) Active confirmed Problem 003333898 Blister (nonthermal), unspecified lower leg, initial encounter (S80.829A) Active confirmed Problem Atrial fibrillation (42063585) Atrial fibrillation (I48.91) Active confirmed Problem Hyperlipidemia (64501460) Hyperlipidemia (E78.5) Active confirmed Problem Aortic regurgitation (16822619) Aortic regurgitation (I35.1) Active confirmed Problem Congestive heart failure (12140702) CHF (congestive heart failure) (I50.9) Active confirmed Problem Asthma (175104709) Asthma (J45.909) Active conf irmed Problem Cervical radiculopathy (94657832) Cervical radiculopathy (M54.12) Active confirmed Problem Tricuspid regurgitation (689217615) Tricuspid regurgitation (I07.1) Active confirmed Problem Aortic valve disorder (5475632) Aortic stenosis (I35.0) Active confirmed Problem Atrial fibrillation (disorder) (22293052) Afib (I48.91) Active confirmed Problem Edema (37591707) Edema (R60.9) Active confirmed Problem Depression (975734896) Depression (F32.9) Active confirmed Problem Peripheral neuropathy (517544755) Peripheral neuropathy (G62.9) Active confirmed Problem Vitamin B12 deficiency (517287011) Vitamin B12 deficiency (E53.8) Active confirmed Problem Sleep apnea (24191951) Sleep apnea (G47.30) Active confirmed Problem CVA - Cerebrovascular accident (317012650) CVA (cerebral vascular accident) (I63.9) Active confirmed Problem Osteoarthritis of knee (958370622) Osteoarthritis of knee (M17.9) Active confirmed Problem Congestive heart failure (75052273) Congestive heart failure (I50.9) Active confirmed Problem Migraine (82694545) Migraine (G43.909) Active confirmed Problem Irritable bowel syndrome (98273777) IBS (irritable bowel syndrome) (K58.9) Active confirmed Problem Peptic ulcer (79491502) Peptic ulcer (K27.9) Active confirmed Problem Generalized anxiety disorder (55540868) MERA (generalized anxiety disorder) (F41.1) Active confirmed Problem Diabetes mellitus type 2 (disorder) (64436478) DM2 (diabetes mellitus, type 2) (E11.9) Active confirmed Problem Acute bronchitis (12572631) Acute bronchitis (J20.9) Active confirmed Problem Cervical spondylosis with myelopathy (M47.12) Active confirmed Problem Pulmonary edema (55856658) Pulmonary edema (J81.1) Active confirmed Problem Diverticulitis (62698356) Diverticulitis (K57.92) Active confirmed Problem Diabetic neuropathy (749693061) Diabetic neuropathy (E11.40) Active confirmed Problem Acute systolic heart failure (762991681) Acute systolic heart failure (I50.21) Active confirmed Problem Benign prostatic hyperplasia (593472025) Benign prostatic hyperplasia (N40.0) Active confirmed Problem Dyshidrotic eczema (723471576) Dyshidrotic eczema (L30.1) Active confirmed Problem Iron deficiency anemia (66082626) Anemia, iron deficiency (D50.9) Active confirmed Problem Ventricular hypertrophy (052468303) Ventricular hypertrophy (I51.7) Active confirmed Problem Hemorrhoid (01217885) Hemorrhoid (K64.9) Active confirmed Problem Labyrinthitis (12904914) Labyrinthitis (H83.09) Active confirmed Problem Altered mental status (422872274) Altered mental status (R41.82) Active confirmed Problem Liver mass (600302583) Liver mass (R16.0) Active confirmed Problem Electrolyte imbalance (620655504) Electrolyte imbalance (E87.8) Active confirmed Problem Altered mental status (172193093) Altered mental state (R41.82) Active confirmed Problem Foot callus (153120469) Foot callus (L84) Active confirmed Problem Left lower lobe pneumonia (001215934) Left lower lobe pneumonia (J18.9) Active confirmed Problem Dermatochalasis (807020335) Dermatochalasis (H02.839) Active confirmed Problem Acute diastolic heart failure (288782719) Acute diastolic heart failure (I50.31) Active confirmed Problem 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 Problem Urinary tract obstruction (7863973) Urinary obstruction (N13.9) Active confirmed Problem Cardiomegaly (5710345) Atrial enlargement, left (I51.7) Active confirmed Problem Generalized anxiety disorder (09066862) Anxiety neurosis (F41.1) Active confirmed Problem Tubulovillous adenoma of colon (0039176115) 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) Active confirmed Problem Essential hypertension (16279687) Essential Hypertension (I10) Active confirmed Problem 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 Problem Essential hypertension (47044087) BP (high blood pressure) (I10) Active confirmed Problem History of cardioversion (81928036616239) History of cardioversion (Z98.890) Active confirmed Problem Degenerative disorder of macula (765258716) Macular degeneration, 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) Active confirmed Problem Deep vein thrombosis (DVT) of non-extremity vein, unspecified chronicity (I82.90) Active confirmed Problem Chronic kidney disease stage 2 (217557671) Chronic kidney disease (CKD), stage 2 (mild) (N18.2) Active confirmed Problem Pulmonary hypertension (24338467) Pulmonary hypertension (I27.20) Active confirmed Problem Lump in right breast (71198500544309148 ) Unspecified lump in the right breast, unspecified quadrant (N63.10) Active confirmed Problem Abrasion of skin (65128746) Skin abrasion (T14.8XXA) Active confirmed Problem Liver function tests abnormal (311780551) Liver function test abnormality (R94.5) Active confirmed Problem Type II diabetes mellitus without complication (295115121) Diabetes (E11.9) Active confirmed Problem Myocardial infarct (58881205) Myocardial infarct (I21.9) Active confirmed Problem Diabetes mellitus (06651823) Diabetes mellitus (E11.9) Active confirmed Problem Resting tremor (33882220) Resting tremor (G25.2) Active confirmed Problem COVID-19 (955358558) COVID-19 (U07.1) Active confirmed Problem 676499516 Chronic kidney disease, stage 3 unspecified (N18.30) Active confirmed Problem Cardiomegaly (9317619) Atrial enlargement, right (I51.7) Active confirmed Problem 068913477 Other pericardia l effusion (noninflammatory) (I31.39) Active confirmed Vital Signs Oximetry 90 % 04/06/2025 Blood pressure diastolic 80 mm Hg 04/06/2025 Height 70 in 04/06/2025 Blood pressure systolic 152 mm Hg 04/06/2025 Weight 186.8 lbs 04/06/2025 BMI 26.8 kg/m2 04/06/2025 Encounters Encounter Location Date Provider Diagnosis [address] [address] 01/18/2025 Erik Hoy Urinary frequency R3 5.0 ; Edema R60.9 ; Essential Hypertension I10 and Diabetes mellitus E11.[address] [address] 02/22/2025 Erik Hoy Vitamin B12 deficien cy E53.8 ; Hyperlipidemia E78.5 ; Atrial fibrillation I48.91 ; CVA (cerebral vascular accident) I63.9 and Diabetes mellitus E11.[address] [address] 03/14/2025 Erik Hoy Atrial fibrillation I48.91 ; Hyperlipidemia E78.5 and Pulmonary hypertension I27.[address] [address] 08/15/2024 Erik Hoy Benign prostatic hyperplasia N40.0 ; Anxiety neurosis F41.1 ; Essential Hypertension I10 and Resting tremor G25.2 [facility] [address] [place] [address] 08/23/2024 Erik Hoy Atrial fibrillation I48.91 ; Diabetic neuropathy E11.40 ; Essential Hypertension I10 ; Resting tremor G25.2 and Encounter for immunization Z23 [facility] [address] [place] [address] 09/22/2024 Erik Hoy Diabetic neuropathy E11.40 ; Essential Hypertension I10 ; Resting tremor G25.2 and Anxiety neurosis F41.1 [facility] [address] [place] [address] 04/06/2025 Erik Hoy Atrial fibrillation I48.91 and CHF (congestive heart failure) I50.9 [facility] [address] [place] [address] 06/02/2024 Erik Hoy Vitamin B12 deficien cy E53.8 [facility] [address] [place] [facility] [place] [place] [address] 07/07/2024 Erik Hoy Vitamin B12 deficien cy E53.8 [facility] [address] [place] [address] 08/07/2024 Erik Hoy Vitamin B12 deficien cy E53.8 [facility] [address] [place] [address] 11/17/2024 Erik Hoy Vitamin B12 deficien cy E53.8 [facility] [address] [place] [facility] [place] [address] 12/18/2024 Erik Hoy Vitamin B12 deficien cy E53.8 [facility] [address] [place] [address] 01/15/2025 Erik Hoy Vitamin B12 deficien cy E53.8 [facility] [address] [place] [address] 03/26/2025 Erik Hoy Vitamin B12 deficien cy E53.8 [facility] [address] [place] [address] 06/07/2024 Erik Pineda [facility] [address] [place] [address] 06/08/2024 [facility] [address] [place] [address] 06/09/2024 [facility] [address] [place] [address] 06/16/2024 [facility] [address] [place] [address] 07/07/2024 [facility] [address] [place] [address] 08/15/2024 [facility] [address] [place] [address] 08/16/2024 [facility] [address] [place] [address] 08/23/2024 Erik Hoy Atrial fibrillation I48.91 [facility] [address] [place] [address] 08/25/2024 Erik Hoy Atrial fibrillation I48.91 [facility] [address] [place] [address] 09/25/2024 [facility] [address] [place] [address] 12/24/2024 [facility] [address] [place] [address] 01/17/2025 [facility] [address] [place] [address] 01/18/2025 [facility] [address] [place] [address] 01/18/2025 Erik Hoy Atrial fibrillation I48.91 [facility] [address] [place] [address] 01/29/2025 [facility] [address] [place] [address] 02/13/2025 Erik Sung Altered mental statu s R41.82 [facility] [address] [place] [facility] [place] [address] 02/13/2025 Erik Sung [facility] [address] [place] [address] 02/16/2025 Erik Sung [facility] [address] [place] [address] 02/22/2025 Erki Kerrmohan [facility] [address] [place] [address] 03/16/2025 Erik Kerrmohan [facility] [address] [place] [address] 03/16/2025 Erik Sung [facility] [address] [place] [address] 04/10/2025 Erik Sung Atrial fibrillation I48.91 [facility] [address] [place] [address] 04/23/2025 Erik Sung [facility] [address] [place] [address] 05/08/2025 Erik Sung CHF (congestive hear t failure) I50.9 ; Edema R60.9 ; Chronic kidney disease, stage 3 unspecified N18.30 and Urinary obstruction N13.9 [place] [address] [facility] [address] 05/08/2025 Erik Sung Assessments Encounter Date Diagnosis (ICD [...] N40.0) 08/15/2024 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) 03/14/2025 Atrial fibrillation (ICD-10 - I48.91) 03/14/2025 Hyperlipidemia (ICD-10 - E78.5) 03/14/2025 Pulmonary hypertension (ICD-10 - I27.20) 08/15/2024 Essential Hypertension (ICD-10 - I10) 05/08/2025 Edema (ICD-10 - R60.9) 02/22/2025 Atrial fibrillation (ICD-10 - I48.91) 01/18/2025 Essential Hypertension (ICD-10 - I10) 08/23/2024 Essential Hypertension (ICD-10 - I10) stable 09/22/2024 Resting tremor (ICD-10 - G25.2) 09/22/2024 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) 08/23/2024 Resting tremor (ICD-10 - G25.2) adjusteng med - primidone to 1 in am and 2 at hs 01/18/2025 Diabetes mellitus (ICD-10 - E11.9) 02/22/2025 CVA (cerebral vascular accident) (ICD-10 - I63.9) 05/08/2025 Chronic kidney disease, stage 3 unspecified (ICD-10 - N18.30) 08/15/2024 Resting tremor (ICD-10 - G25.2) 05/08/2025 Urinary obstruction (ICD-10 - N13.9) 02/22/2025 Diabetes mellitus (ICD-10 - E11.9) restarting metformin 08/23/2024 Encounter for immunization (ICD-10 - Z23) Plan Of Treatment Pending Test Test Name Order Date CMP (COMPLETE METABOLIC PANEL) UA (URINALYSIS, COMPLETE) 05/08/2025 CBC WITH DIFF [...] MRI Brain w/o Contrast 02/13/2025 BNP 05/08/2025 BNP 05/08/2025 CBC AUTO DIFF 05/08/2025 CBC AUTO DIFF 05/08/2025 CULTURE SPUTUM 05/08/2025 CULTURE SPUTUM 07/23/2023 CULTURE SPUTUM 01/18/2025 PROF 14(COMP METB) 05/08/2025 PROF CHEM 8 (BAS METB) 05/08/2025 RESPIRATORY PANEL PLUS 09/09/2023 SPUTUM GRAM STAIN 01/18/2025 UA (CLEAN or CATCH) CUTTING MACHINE TENDER DECORATIVE or MICRO IF IND. 05/08/2025 THYROID PANEL (T4/TSH/FREE T3) Free PSA 03/13/2024 ECG 12 lead 05/08/2025 Troponin I High Sensitivity 05/08/2025 Troponin I High Sensitivity 05/08/2025 CMP (COMP MET LYN) w/eGFR CKD-EPI 2024 Insurance Providers Payer Name Payer Address Payer Phone Subscriber Number Group Number Insured Name Patient Relationship to Insured Coverage Start Date Coverage End Date [place]IC[place] [address] [place] [place] [address] [id number] Lauradorene curryNadir Self - patient is the insured 4 [facility] [address] [place] [address] [id number] PLAN C Perry curryNadir Self - patient is the insured 5 [...] B12 deficiency E53.8 Surgical History Surgery Date(Month/Year) Back surgery TONSILLECTOMY,UNDER 12YRS Hiatal Hernia CHOLECYSTECTOMY Hospitalization History Reason Date(Month/Year) Mini Stroke 2023 Weakness, Slurred Speech 08/2024 SOB, Swelling in legs 05/2023
--- OUTSIDE RECORDS SUMMARY | 2025-05-09 06:08 | XMS_ITS | Encounter Summary ---
Author Organization [facility] Address [address] [place] [address] Care Team Providers Care Appeals Manager Name Role Phone Pj Sung MD Primary Care Provider [phone] Encounter Details Date Type Department Care Team (Late st Contact Info) Description 05/04/2025 Telephone [facility] [address] [place] [address] Ruthie Linda MD [address] [facility] [place] [place] [address] Social History Tobacco Use Types Packs/Day Years Used Date Smoking Tobacco: Former Cigarettes Smokeless Tobacco: Never Alcohol Use Standard Drinks/Week Comments Not Currently 0 (1 standard drink = 0.6 oz pur e alcohol) PHQ-2 Answer Date Recorded Patient Health Questionnaire-2 Score 0 01/03/2025 [place] Safety & Environment Answer Date Rec orded [...] Description 05/10/2025 8:30 AM EDT Hospital Encounter [facility] [address] [facility] [place] [address] Mike Cisneros MD [address] [place] [address] Nonrheumatic aortic valve stenosis; Chronic diastolic congestive heart failure (CMS/HCC); Shortness of breath; Abnormal findings on diagnostic imaging of heart and coronary circulation 05/10/2025 10:30 AM EDT - 05/10/2025 11:30 AM EDT Surgery [facility] [address] [facility] [place] [address] Mike Cisneros MD [address] [place] [address] Coronary angiography [77963 (CPT )] 07/11/2025 1:30 PM EDT Follow-Up [facility] [address] [place] [address] [place] [address] Jeff Hutton MD [address] [place] [address] documented as of this encounter Visit Diagnoses Not on filedocumented in this encounter Care Teams Appeals Manager Relationship Specialty Start Date End Date Pj Sung MD [address] [place] [address] PCP - General 07/17/22 documented as of this encounter
--- OUTSIDE RECORDS SUMMARY | 2025-05-09 06:08 | XMS_ITS | Referral Summary ---
Author Organization [facility] Address [address] [place] [address] Care Team Providers Care Livestock Caretaker Name Role Phone Pj Sung MD Primary Care Provider [phone] Encounters Date Type Department Care Team Description 05/07/[address] [address] Stephanie Carl MA 05/04/2025 Telephone [facility] [address] [place] [phone] Ruthie Linda MD 04/30/2025 3:00 PM EDT Office Visit [address] [phone] Mike Cisneros MD Nonrheumatic aortic valve stenosis (Primary Dx); Chronic diastolic congestive heart failure (CMS/HCC); Shortness of breath; Longstanding persistent atrial fibrillation (CMS/HCC); Pericardial effusion; Pulmonary hypertension (CMS/HCC); Coronary artery disease involving [place] coronary artery of [place] heart without angina pectoris; Primary hypertension; Stage 3b chronic kidney disease (CMS/HCC) 04/18/[address] [phone] Stephanie Carl MA 03/12/2025 9:30 AM EDT Office Visit [address] [address] Mike Cisneros MD Longstanding persistent atrial fibrillation (CMS/HCC) (Primary Dx); Nonrheumatic aortic valve stenosis; Pericardial effusion; Pulmonary hypertension (CMS/HCC); Chronic diastolic congestive heart failure (CMS/HCC); Coronary artery disease involving [place] coronary artery of [place] heart without angina pectoris; Primary hypertension; Stage 3b chronic kidney disease (CMS/HCC); Weakness of both lower extremities; Shortness of breath; Abnormal findings on diagnostic imaging of heart and coronary circulation 02/28/2025 Travel 02/28/2025 10:46 AM EDT - 02/28/2025 11:59 PM EDT Hospital Encounter [facility] Heart [facility] Vascular [place] [facility] [address] [place] [address] Longstanding persistent atrial fibrillation (CMS/HCC); 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 Discharge Disposition: Home or Self Care () 02/21/2025 Telephone [facility] [address] [place] [address] Ni Amador RN 02/19/2025 Orders Only [facility] [address] [place] [address] Stephanie Carl MA Longstanding persistent atrial fibrillation (CMS/HCC); 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 from Last 3 Months Allergies Active Allergy Reactions Criticality Noted Date Comments Iodinated Contrast Media 07/17/2022 Nitroglycerin 07/17/2022 Tmsdmet-Iti-Zcl Reductase Inhibitors 07/17/2022 Medications aspirin 81 mg [...] (06/14/2023 3:05 PM EDT): Recent admit to [facility] for shortness of breath, acute HFpEF with ARTUR. BNP 3311, BUN 26, CR 1.5-1.9, LFT normal, K+ normal. Troponin level negative. CXR showed vascular congestion Pt was admitted and diuresed as inpt. [facility] III Continue GDMT- remains on jardiance [...] Immunizations Immunization Administration Dates Next Due Covid ([employer]) Bivalent Osmel ter =>12 YRS 10/21/2022 Influenza, [...] Recorded Patient Health Questionnaire-2 Score 0 01/03/2025 [place] Safety & Environment Answer Date Rec orded [...] Vascular Center Vascular Lab [address] [place] [address] Mike Cisneros MD [address] [place] [phone] Nonrheumatic aortic valve stenosis; Chronic diastolic congestive heart failure (CMS/HCC); Shortness of breath; Abnormal findings on diagnostic imaging of heart and coronary circulation 05/10/2025 10:30 AM EDT - 05/10/2025 11:30 AM EDT Surgery [facility] [address] [facility] [place] [address] Mike Cisneros MD [address] [place] [address] Coronary angiography [19017 (CPT )] 07/11/2025 1:30 PM EDT Follow-Up [facility] [address] [place] [phone] Jeff Hutton MD [address] [place] [address] [phone] Procedures Procedure Name Priority Date/Time Associated Diagnosis [...] EDT Narrative 02/28/2025 6:13 PM EDT 1 [facility] Heart Station [address] [place] [address] (fax) Transesophageal Echocardiogram-[facility] Name: NADIR HEREDIA Study Date: 02/28/2025 11:38 AM B/P: 152 mmHg/76 mmHg HR: Date of : 1940 Location: [facility] Height: 73 in. Age: 85 year(s) Patient Room: Weight: 188 lb. Gender: Male Patient Status: OutPt BSA: 2.1 m2 Indication: Atrial Fibrillation Examination: MARK/Limited Doppler/CFI, Agitated Saline Image Quality: Good Patient Consent: Informed, written consent was obtained for the procedure Exam Location: A MARK was performed in the Rough [place] without complications Anesthesia Pharyngeal anesthesia with viscous [...] small pericardial effusion. Procedure Staff Reading Group: [facility] Blunger Machine Operator: Katelyn Martinez RDCS Ordering Physician: Mike Cisneros MD Procedure Note Kyleigh Faulkner MD - 02/28/2025 1 [facility] Heart Station [address] [facility] [place] [address] [phone] (fax) Transesophageal Echocardiogram-[facility] Name: NADIR HEREDIA Study Date: 02/28/2025 11:38 AM B/P: 152 mmHg/76 mmHg HR: Date of : 1940 Location: [facility] Height: 73 in. Age: 85 year(s) Patient Room: Weight: 188 lb. Gender: Male Patient Status: OutPt BSA: 2.1 m2 Indication: Atrial Fibrillation Examination: MARK/Limited Doppler/CFI, Agitated Saline Image Quality: Good Patient Consent: Informed, written consent was obtained for the procedure Exam Location: A MARK was performed in the [place] without complications Anesthesia Pharyngeal anesthesia with viscous [...] small pericardial effusion. Procedure Staff Reading Group: [facility] Blunger Machine Operator: Katelyn Martinez RDCS Ordering Physician: Mike Cisneros MD Mike Cisneros MD CV ECHO PROCEDURES Final Res ult from Last 3 Months Insurance MEDICARE [facility] Care Teams Livestock Caretaker Relationship Specialty Start Date End Date Pj Sung MD [address] [facility] [place] [address] PCP - General 07/17/22
--- OUTSIDE RECORDS SUMMARY | 2025-05-09 06:08 | XMS_ITS | Encounter Summary ---
Author Organization [facility] Address [address] [place] [address] Care Team Providers Care Document Review Specialist Name Role Phone Pj Sung MD Primary Care Provider [phone] Encounter Details Date Type Department Care Team [...] Office Visit [facility] [address] [facility] 120 [place] [phone] Blaise Dc DPM [address] [facility] [address] [place] [address] 07/10/2025 10:30 AM EDT Office Visit [facility] [address] [facility] [address] [place] [address] Lenin Montoya MD 2[address] [facility] 111 [place] [address] 09/11/2025 1:15 PM EDT Office Visit [facility] [address] [facility] [address] [place] [address] Mercedes Joy MD [address] [facility] [address] [place] [address] 10/09/2025 1:45 PM EST Office Visit [facility] [place] [address] [facility] [address] [place] [address] Lenin Montoya MD [address] [phone] documented as of this encounter Visit Diagnoses Not on filedocumented in this encounter Care Teams Document Review Specialist Relationship Specialty Start Date End Date Pj Sung MD [address] [place] [address] PCP - General Family Medicine 12/02/23 documented as of this encounter
--- OUTSIDE RECORDS SUMMARY | 2025-05-09 06:08 | XMS_ITS | Clinical Summary ---
Author Organization [employer] Address [id number] [address] [place] [address] Care Team Providers Care Care Program Director Name Role Phone Pj Sung MD Primary Care Provider [phone] Encounters Date Type Department Care Team Description 04/14/2025 7:05 PM EDT - 04/16/2025 7:35 AM EDT Emergency [facility] [address] [place] [phone] Discharge Disposition: Telemedicine Discharge 04/14/2025 5:30 PM EDT Ancillary Procedure [facility] [place] [address] Pain 04/14/2025 5:25 PM EDT Ancillary Procedure [facility] [place] [address] Pain 04/14/2025 5:20 PM EDT Ancillary Procedure [facility] [place] [address] Pain 04/14/2025 5:00 PM EDT Ancillary Procedure [facility] [place] [address] Pain 02/15/2025 Orders Only [facility] [address] [place] [phone] Transcribe, Orders Support User Pain (Primary Dx) 02/14/2025 3:25 PM EDT Ancillary Procedure [facility] [address] [place] [address], [place] [phone] Pain 02/14/2025 3:05 PM EDT Ancillary Procedure [facility] [address] [place] [address] Pain 02/14/2025 1:48 PM EDT - 02/17/2025 12:44 PM EDT Emergency [facility] [address] [place] [phone] Discharge Disposition: Telemedicine Discharge 02/14/2025 8:25 AM EDT Ancillary Procedure [facility] [address] [place] [address] Pain from Last 3 Months [...] Result from Last 3 Months Insurance MEDICARE [facility] Care Teams Care Program Director Relationship Specialty Start Date End Date Pj Sung MD [address] [place] [address] PCP - General Family Medicine 02/14/25
--- OUTSIDE RECORDS SUMMARY | 2025-05-09 06:08 | XMS_ITS | Encounter Summary ---
Author Organization [facility] Address [address] [place] [address] Care Team Providers Care Pilot Teacher Name Role Phone Pj Sung MD Primary Care Provider [phone] Encounter Details Date Type Department Care Team (Late Contact Info) Description 05/07/2025 Telephone [facility] [address] [place] [address] Randal Carlah, [place] Social History Tobacco Use Types Packs/Day Years Used Date Smoking Tobacco: Former Cigarettes Smokeless Tobacco: Never Alcohol Use Standard Drinks/Week Comments Not Currently 0 (1 standard drink = 0.6 oz pur e alcohol) PHQ-2 Answer Date Recorded Patient Health Questionnaire-2 Score 0 01/03/2025 [place] Safety & Environment Answer Date Rec orded [...] Description 05/10/2025 8:30 AM EDT Hospital Encounter [facility] Heart [facility] Vascular [place] [facility] [address] [facility] [place] [address] Mike Cisneros MD [address] [place] [address] Nonrheumatic aortic valve stenosis; Chronic diastolic congestive heart failure (CMS/HCC); Shortness of breath; Abnormal findings on diagnostic imaging of heart and coronary circulation 05/10/2025 10:30 AM EDT - 05/10/2025 11:30 AM EDT Surgery [facility] Vascular [place] [facility] [address] [facility] [place] [address] Mike Cisneros MD [address] [place] [address] Coronary angiography [[id number] (CPT )] 07/11/2025 1:30 PM EDT Follow-Up [facility] [address] [place] [phone] Jeff Hutton MD [facility] [place], [place] [phone] documented as of this encounter Visit Diagnoses Not on filedocumented in this encounter Care Teams Pilot Teacher Relationship Specialty Start Date End Date Pj Sung MD [address] [facility] [place] [address] PCP - General 07/17/22 documented as of this encounter
--- OUTSIDE RECORDS SUMMARY | 2025-05-09 06:08 | XMS_ITS | Clinical Summary ---
Author Organization [facility] Address [address] [place] [address] Care Team Providers Care Chief Nuclear Medicine Technologist Name Role Phone Pj Sung MD Primary Care Provider [phone] Allergies Active Allergy Reactions Criticality Noted Date Comments Iodinated Contrast Media 07/17/2022 Nitroglycerin 07/17/2022 Brihvcx-Hcn-Brz Reductase Inhibitors 07/17/2022 Medications aspirin 81 mg [...] (06/14/2023 3:05 PM EDT): Recent admit to [facility] for shortness of breath, acute HFpEF with ARTUR. BNP 3311, BUN 26, CR 1.5-1.9, LFT normal, K+ normal. Troponin level negative. CXR showed vascular congestion Pt was admitted and diuresed as [facility]. [facility] III Continue GDMT- remains on jardiance and [...] Type Department Care Team Description 05/07/[address] [address] SiddharthaRandal rojasah [place] 05/04/2025 Telephone [facility] [address] [place] [address] Ruthie Lnida MD 04/30/2025 3:00 PM EDT Office Visit [address] [address] Mike Cisneros MD Nonrheumatic aortic valve stenosis (Primary Dx); Chronic diastolic congestive heart failure (CMS/HCC); Shortness of breath; Longstanding persistent atrial fibrillation (CMS/HCC); Pericardial effusion; Pulmonary hypertension (CMS/HCC); Coronary artery disease involving [place] coronary artery of [place] heart without angina pectoris; Primary hypertension; Stage 3b chronic kidney disease (CMS/HCC) 04/18/[address] [place] [address] Stephanie Carl MA 03/12/2025 9:30 AM EDT Office Visit [facility] [address] [facility] [address] Mike Cisneros MD Longstanding persistent atrial fibrillation (CMS/HCC) (Primary Dx); Nonrheumatic aortic valve stenosis; Pericardial effusion; Pulmonary hypertension (CMS/HCC); Chronic diastolic congestive heart failure (CMS/HCC); Coronary artery disease involving [place] coronary artery of [place] heart without angina pectoris; Primary hypertension; Stage 3b chronic kidney disease (CMS/HCC); Weakness of both lower extremities; Shortness of breath; Abnormal findings on diagnostic imaging of heart and coronary circulation 02/28/2025 10:46 AM EDT - 02/28/2025 11:59 PM EDT Hospital Encounter [facility] Heart [facility] Vascular Lab [address] [place] [address] Longstanding persistent atrial fibrillation (CMS/HCC); 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 Discharge Disposition: Home or Self Care (01) 02/28/2025 Travel 02/21/2025 Telephone [facility] Lab [address] [place] [address] Ni Amador, RN 02/19/2025 Orders Only [facility] [address] [facility] [place] [address] Stephanie Carl MA Longstanding persistent atrial fibrillation (CMS/HCC); 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 from Last 3 Months Immunizations Immunization Administration Dates Next Due Covid ([employer]) Bivalent Osmel ter =>12 YRS 10/21/2022 Influenza, [...] Recorded Patient Health Questionnaire-2 Score 0 01/03/2025 [place] Safety & Environment Answer Date Rec orded [...] Description 05/10/2025 8:30 AM EDT Hospital Encounter [facility] Vascular [place] [facility] [address] [place] [address] Mike Cisneros MD [address] [place] [address] Nonrheumatic aortic valve stenosis; Chronic diastolic congestive heart failure (CMS/HCC); Shortness of breath; Abnormal findings on diagnostic imaging of heart and coronary circulation 05/10/2025 10:30 AM EDT - 05/10/2025 11:30 AM EDT Surgery [facility] Vascular [place] [facility] [address] [place] [address] Mike Cisneros MD [address] [place] [address] Coronary angiography [[id number] (CPT )] 07/11/2025 1:30 PM EDT Follow-Up [facility]rology Clinic [address] [place] [phone] Jeff Hutton MD [address] [place] [address] [phone] Health Maintenance Due Date Last Done Comments [...] EDT Narrative 02/28/2025 6:13 PM EDT 1 [place] [facility] Heart Station [address] [place] [address] [phone] (fax) Transesophageal Echocardiogram-[facility] Name: NADIR HEREDIA Study Date: 02/28/2025 11:38 AM B/P: 152 mmHg/76 mmHg HR: Date of : 1940 Location: [facility] Height: 73 in. Age: 85 year(s) Patient Room: Weight: 188 lb. Gender: Male Patient Status: OutPt BSA: 2.1 m2 Indication: Atrial Fibrillation Examination: MARK/Limited Doppler/CFI, Agitated Saline Image Quality: Good Patient Consent: Informed, written consent was obtained for the procedure Exam Location: A MARK was performed in the Heat Treat Operator without complications Anesthesia Pharyngeal anesthesia with viscous [...] small pericardial effusion. Procedure Staff Reading Group: [facility] Consulting Engineer: Katelyn Martinez RDCS Ordering Physician: Mike Cisneros MD Procedure Note Kyleigh Faulkner MD - 02/28/2025 1 [place] [facility] Heart Station [address] [place] [address] [phone] (fax) Transesophageal Echocardiogram-[facility] Name: NADIR HEREDIA Study Date: 02/28/2025 11:38 AM B/P: 152 mmHg/76 mmHg HR: Date of : 1940 Location: [facility] Height: 73 in. Age: 85 year(s) Patient Room: Weight: 188 lb. Gender: Male Patient Status: OutPt BSA: 2.1 m2 Indication: Atrial Fibrillation Examination: MARK/Limited Doppler/CFI, Agitated Saline Image Quality: Good Patient Consent: Informed, written consent was obtained for the procedure Exam Location: A MARK was performed in the Heat Treat Operator without complications Anesthesia Pharyngeal anesthesia with viscous [...] small pericardial effusion. Procedure Staff Reading Group: [facility] [facility] Consulting Engineer: Katelyn Martinez RDCS Ordering Physician: Mike Cisneros MD Mike Cisneros MD CV ECHO PROCEDURES Final Res ult from Last 3 Months Insurance MEDICARE Member Subscriber Plan / Payer (Ef fective 2004-Present) Name:Nadir Heredia Joy Member ID:[id number] Relation to Subscriber:Self Name:Nadir Heredia Subscriber ID:[id number] Payer ID:[id number] Group ID:Not on file Type:Medicare Address: [facility] [address] Care Teams Chief Nuclear Medicine Technologist Relationship Specialty Start Date End Date Pj Sung MD [address] [place] [address] PCP - General 07/17/22
[2025-05-09 06:09] LABS: Hemoglobin 10.7 g/dL (14.0-18.0); Mean Corpuscular HGB Conc 31.5 g/dL (29.9-35.2); Mean Corpuscular Hemoglobin 25.9 pg (25.9-34.0); Mean Corpuscular Volume 82.3 fL (80.0-94.0); Mean Platelet Volume 10.9 fL (9.5-13.5); Platelet Count 314 10^3/uL (150-450); Red Blood Count 4.13 10^6/uL (4.70-6.10)
--- OUTSIDE RECORDS SUMMARY | 2025-05-09 06:09 | XMS_ITS | CCD ---
Author Organization [facility] Care Team Providers Care Tire Bladder Maker Name Role Phone PHYSICIAN, DEFAULT Admitting Unavailable PHYSICIAN, DEFAULT Attending Unavailable VAN YOUSSEF Primary Care Unavailable Van Youssef Primary Care Physician MIKAEL ., DR ARAUJO Primary Care Unavailable HOY ., DR ARAUJO Consulting Unavailable HOY ., DR ARAUJO Attending Unavailable HOY ., DR ARAUJO Admitting Unavailable ZIEBER, DR CLOVER Zimmer Consulting Unavailable AKHIOK, DR CRAMER Consulting Unavailable HOY ., DR ARAUJO Primary Care Unavailable AKHIOK, DR CRAMER Attending Unavailable AKHIOK, DR CRAMER Admitting Unavailable AKHIOK, DR CRAMER Consulting Unavailable HOY ., DR ARAUJO Primary Care Unavailable AKHIOK, DR CRAMER Attending Unavailable AKHIOK, DR CRAMER Admitting Unavailable HOY ., DR ARAUJO Consulting Unavailable HOY ., DR ARAUJO Primary Care Unavailable HOY ., DR ARAUJO Attending Unavailable HOY ., DR ARAUJO Admitting Unavailable AKHIOK, DR CRAMER Consulting Unavailable HOY ., DR ARAUJO Primary Care Unavailable AKHIOK, DR CRAMER Attending Unavailable AKHIOK, DR CRAMER Admitting Unavailable HOY ., DR [...] Unavailable Van Youssef MD Primary Care Provider [phone] Van Youssef MD Primary Care Provider [phone] Van Youssef MD Primary Care Provider [phone] BLAISE CHICAS Attending Unavailable BARRIE MONTOYA Attending [...] Consulting Unavailable MD Clover Walker Consulting Unavailable Gonzales, Clover Consulting Unavailable Gonzales, Clover Consulting Unavailable Gonzales, Clover Consulting Unavailable Gonzales, Clover Consulting Unavailable Gonzales, Clover Consulting Unavailable Gonzales, Clover Consulting Unavailable Gonzales, Clover Consulting Unavailable [facility] [place] Consulting Unavailable [facility] [place]io[place] Consulting Unavailable Efrain Ferreiarmozach Consulting Unavailable MD Rebeca Ferreira Consulting Unavailable Othman, Mahmoud Consulting Unavailable KARTIK, Ronobir R Admitting Unavailable KARTIK, Ronobir R Attending Unavailable [facility] [place] Consulting Unavailable HOY, VAN M [...] Fajardo Attending Unavailable AMYJEFF COVARRUBIAS Attending Unavailable AKHIOK, RUTHIE Attending Unavailable MOUKACLARIBEL ARCHER Attending Unavailable MOUKACLARIBEL ARCHER Attending Unavailable MOUKACLARIBEL ARCHER Attending Unavailable MOUKACLARIBEL ARCHER Attending Unavailable RUTHIE LINDA Attending Unavailable CLARIBEL CISNEROS Referring Unavailable Allergies Allergy Classification Reported Allergen(s) Allergy Type Date of Onset Reaction(s) Facility (20 sources) Aminolevulinic Acid; Translations: [aminolevulinic acid] Drug Allergy 11-04-20 13 Unknown [facility] Repository (1 source) NITRO PATCH; Translations: [NITRO PATCH] Propensity to adverse reactions (disorder) 03-18-20 12 [facility] Repository (20 sources) Contrast media; Translations: [Contrast Dye] Drug allergy Unknown (qualifier value) [facility] (20 sources) Hmg-Coa Reductase Inhibitors (Statins); Translations: [statins] Allergy to substance 08-24-20 23 Unknown [facility] (20 sources) Nitroglycerin; Translations: [nitroglycerin] Drug Allergy 02-23-20 Unknown (qualifier value) [facility] (2 sources) black walnut pollen extract; Translations: [YLUOAQM-DWI-YXP REDUCTASE INHIBITORS] Drug Allergy 04-21-20 17 [facility] Repository (1 source) Iodine (And Iodine Containting Drugs) Drug allergy (disorder) 05-28-20 16 [facility] Repository (20 sources) Nitroglycerin Allergy to substance 02-23-20 [facility] (20 sources) Iodinated Contrast Media; Translations: [IODINATED CONTRAST MEDIA] Drug Allergy 07-17-20 [facility] (11 sources) Simvastatin; Translations: [simvastatin] Drug Allergy elevated liver enzymes [facility] (7 sources) Aminolevulinic Acid; Translations: [aminolevulinic acid] Drug Allergy 11-04-[address] [facility] Repository (7 sources) Nitroglycerin; Translations: [Nitroglycerin Patch] Drug Allergy [facility] Repository Medications Current Medications [...] every six hours as needed for pain [place] 325 mg-5 mg oral tablet 1 tab(s), Oral, q6hr, 2 tab(s), Refill(s) 0, Take q6hrs as needed for pain., [facility]/pharmacy #[id number], 185, cm, 10/02/24 11:15:00 EST, Height/Length [...] procedure., # 6 tab(s), Refills(s) 0, Pharmacy: [facility]/pharmacy #[id number], 185, cm, 10/02/24 11:15:00 EST, Height/Length Dosing, 91, kg, 10/02/24 11:15:00 EST, Weight Dosing Start Date: 10/16/24 Status: Ordered Start: 08-11-2024 take 1 tablet by joslyn th twice daily Cipro 500 mg Tab 500 mg = 1 tab(s), Oral, BID, Start 3 days prior to procedure., # 6 tab(s), Refills(s) 0, Pharmacy: [facility]/pharmacy #[id number], 185, cm, 08/08/24 10:28:00 EDT, Height/Length [...] procedure., # 1 tab(s), Refills(s) 0, Pharmacy: [facility]/pharmacy #[id number], 185, cm, 10/02/24 11:15:00 EST, Height/Length [...] Prior to colonoscopy Per physician's instructions, [facility]/pharmacy #[id number], 185, cm, 03/31/22 9:58:00 EDT, Height/Length [...] week(s), # 42 tab(s), Refills(s) 0, Pharmacy: [facility]/pharmacy #[id number], 185, cm, 10/02/24 11:15:00 EST, Height/Length [...] DAY for 90 Active polyethylene glycol 3350 08749 mg powder for oral solution (2 sources) [...] Start: 01-09-2019 take 2 tablets by mo [facility] twice daily primidone 50 mg Tab 100 [...] Ordered Repeat number: 1 60 actuat tiotropium 0.07327 mg/actuat inhalation spray (19 sources) Anticholinergic Start: [...] Discontinued Start: 08-28-2020 take 1 capsule by [facility] once daily Align 4 mg oral capsule 4 mg = 1 cap(s), Oral, Daily, Take after completing the Antibiotics course, # 28 cap(s), Refills(s) 0, Pharmacy: [facility]/pharmacy #[id number], 185, cm, 08/28/20 12:05:00 EDT, Height/Length [...] # 160 cap(s), Refills(s) 1, Pharmacy: [facility]/pharmacy #[id number], 185, cm, 08/28/20 12:05:00 EDT, Height/Length [...] disease (2 sources) Atherosclerotic heart disease of [place] coronary artery without angina pectoris; Translations: [Atherosclerotic heart disease of [place] coronary artery without angina pectoris] Onset: 06-05-2024 [...] sources) Long-term current use of anticoagulant; Translations: [financial engineer (current) use of anticoagulants] Onset: 08-08-2024 Episodic Other aftercare (1 source) Long-term current use of drug therapy; Translations: [Other lens maker (current) drug therapy] Onset: 04-14-2025 Episodic Other [...] Onset: 04-30-2022 Episodic Other aftercare (1 source) alf (current) use of aspirin; Translations: [LONG-TERM CURRENT USE OF ASPIRIN] Onset: 08-27-2022 Episodic Other aftercare (1 source) financial engineer (current) use of anticoagulants; Translations: [HEALTHCARE BUSINESS ANALYST CURRNT USE ANTICOAGULANTS] Onset: 08-27-2022 Episodic Other aftercare (1 source) Other intermediate (current) drug therapy; Translations: [OTH LONG-TERM CURRENT DRUG THERAPY] Onset: 08-27-2022 Episodic Other [...] and to call back to reschedule. 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 Coding Query Coding Query From: Lay Dominguez [...] Sergio , M CKD stage 3B Normal [facility] Coding Query Coding Query From: Lay Dominguez RN To: Anai URIARTE; Cc: Ginny Talamantes; Sent: 04/30/2025 07:17:51 EDT ! 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 Cisneros on 05/03/2025. [facility] 36on 04-18-2025 36 Patient's daughter called to make you aware he had a stroke and was admitted to [facility]. He will be discharged today to SNF. He's scheduled for heart cath with you 05/10. Daughter wants to know if you still want him to have this or if he needs pushed out? Do you need to see him prior to this? Please advise. Thanks. [facility] BMPon 04-18-2025 Anion gap [Moles/Vol] 12 mmol/L Normal - [facility] Comment on above: Performed By: #### 2 [id number] #### [facility] [address] [place] [address] BUN/Creat Ratio 22 No Units High 10-20 [facility] Comment on above: Performed By: #### 2 [id number] #### [facility] [address] [place] [address] Calcium [Mass/Vol] 8.7 mg/dL Low 8.9-11.[address] [facility] Comment on above: Performed By: #### 2 [id number] #### [facility] [address] [place] [address] Chloride [Moles/Vol] 102 mmol/L Normal 101-111 [facility] Comment on above: Performed By: #### 2 [id number] #### [facility] [address] [place] [address] CO2 [Moles/Vol] 27 mmol/L Normal 21-31 [facility] Comment on above: Performed By: #### 2 [id number] #### [facility] [address] [place] [address] Creatinine [Mass/Vol] 1.6 mg/dL High 0.5-1.3 [facility] Comment on above: Performed By: #### 2 [id number] #### [facility] [address] [place] [address] Glucose [Mass/Vol] 233 mg/dL High 55-[address] [facility] Comment on above: Performed By: #### 2 [id number] #### [facility] [address] [place] [address] Potassium [Moles/Vol] 4.3 mmol/L Normal 3.5-5.3 [facility] Comment on above: Performed By: #### 2 [id number] #### [facility] [address] [place] [address] Sodium [Moles/Vol] 137 mmol/L Normal 135-[address] [facility] Comment on above: Performed By: #### 2 [id number] #### [facility] [address] [place] [address] Urea nitrogen [Mass/Vol] 35 mg/dL High 5-[address] [facility] Comment on above: Performed By: #### 2 [id number] #### [facility] [address] [place] [address] CBC w/ Auto Diffon 5 Basophil Absolute 0.0 E9/L Normal 0.0-0.[address] [facility] Comment on above: Performed By: #### 2 [id number] #### [facility] [address] [place] [address] Basophils/100 WBC (Bld) 0.4 % Normal 0.0-2.[address] [facility] Comment on above: Performed By: #### 2 [id number] #### [facility] [address] [place] [address] Eos Absolute 0.2 E9/L Normal 0.0-0.[address] [facility] Comment on above: Performed By: #### 2 [id number] #### [facility] [address] [place] [address] Eosinophils/100 WBC (Bld) 2.3 % Normal 0.0-8.[address] [facility] Comment on above: Performed By: #### 2 784854 #### [facility] [address] [place] [address] Erythrocyte distribution width (RBC) [Ratio] 20.0 % High 10.9-14.[address] [facility] Comment on above: Performed By: #### 2 [id number] #### [facility] [address] [place] [address] Hematocrit (Bld) [Volume fraction] 33.0 % Low 37.7-49.[address] [facility] Comment on above: Performed By: #### 2 947338 #### [facility] [address] [place] [address] Hemoglobin (Bld) [Mass/Vol] 10.6 g/dL Low 13.5-17.[address] [facility] Comment on above: Performed By: #### 2 170512 #### [facility] [address] [place] [address] Lymph Absolute 0.7 E9/L Low 1.0-4.0 [facility] Comment on above: Performed By: #### 2 867993 #### [facility] [address] [place] [address] Lymphocytes/100 WBC (Bld) 9.6 % Low 14.0-50.[address] [facility] Comment on above: Performed By: #### 2 702336 #### [facility] [address] [place] [address] MCH (RBC) [Entitic mass] 27.3 pg Normal 27.0-34.[address] [facility] Comment on above: Performed By: #### 2 455807 #### [facility] [address] [place] [address] MCHC (RBC) [Mass/Vol] 32.2 g/dL Normal 31.4-36.0 [facility] Comment on above: Performed By: #### 2 957442 #### [facility] [address] [place] [address] MCV (RBC) [Entitic vol] 84.6 fL Normal 80.0-100.[address] [facility] Comment on above: Performed By: #### 2 837981 #### [facility] [address] [place] [address] Van Zandt Absolute 0.9 E9/L Normal 0.2-1.0 [facility] Comment on above: Performed By: #### 2 616821 #### [facility] [address] [place] [address] Monocytes/100 WBC (Bld) 11.6 % Normal 4.0-14.[address] [facility] Comment on above: Performed By: #### 2 839014 #### [facility] [address] [place] [address] Neutro Absolute 5.7 E9/L Normal 2.0-7.5 [facility] Comment on above: Performed By: #### 2 [id number] #### [facility] [address] [place] [address] Neutro Auto 76.1 % High 36.0-75.[address] [facility] Comment on above: Performed By: #### 2 [id number] #### [facility] [address] [place] [address] Platelet 234.0 E9/L Normal 150.0-500.[address] [facility] Comment on above: Performed By: #### 2 [id number] #### [facility] [address] [place] [address] Platelet mean volume (Bld) [Entitic vol] 9.0 fL Normal 6.4-10.[address] [facility] Comment on above: Performed By: #### 2 [id number] #### [facility] [address] [place] [address] RBC 3.9 E12/L Low 4.3-5.[address] [facility] Comment on above: Performed By: #### 2 [id number] #### [facility] [address] [place] [address] WBC 7.5 E9/L Normal 4.0-11.[address] [facility] Comment on above: Performed By: #### 2 623538 #### [facility] [address] [place] [address] CHEMISTRYOrdered By: Lab ROP User on 04-18-2025 Glucose [Mass/Vol] 204 mg/dL High 55 - 99 mg/dL [facility] POC Subsection Comment on above: Result Comment: Tommie cortes RN/ POC Device SN [id number] Invalid Interpretation Code [facility] [place] Subsection POC Username BOGDAN WORKMAN Invalid Interpretation Code [facility] P[place] Subsection Sodium [Moles/Vol] [id number] mmol/L Invalid Interpretation Code [facility] [place]OC Subsection Glucose [Mass/Vol] 212 mg/dL High 55 - 99 mg/dL [facility] [place] Subsection Comment on above: Result Comment: Tommie cortes RN/ POC Device SN [id number] Invalid Interpretation Code [facility] P[place] Subsection POC Username BOGDAN WORKMAN Invalid Interpretation Code [facility] [place] Subsection Sodium [Moles/Vol] [id number] mmol/L Invalid Interpretation Code [facility] P[place] Subsection CHEMISTRYOrdered By: SYSTEM SYSTEM on [...] POCon Glucose [Mass/Vol] 204 mg/dL High 55-[address] [facility] Comment on above: Result Comment: Tommie cortes RN/ Performed By: #### 2 [id number] ####[facility] [address] [place] [address] Glucose [Mass/Vol] 212 mg/dL High 55-[address] [facility] Comment on above: Result Comment: Tommie HAGEN Performed By: #### 2 [id number] #### [facility] [address] [place] [address] Discharge Note-Nursingon Discharge Note-Nursing Discharge Note-Nursing MEHNAZ BETHCONNIE Hamilton :1940 Visit Date:04/14/2025 Inpatient Discharge Instructions Your Care Team Admitting Physician - Layne VERDUGO DO Consulting Physician - Aaron GUSTAFSON, Clover [facility] [place], XXXX Reason for Your Visit AMS [...] LU OLMEDO PA-C Where: [facility] [address] [address]- New Follow Up Appointments after Discharge Follow Up with Neurology When: Within 2 to 4 weeks Comments: Call for followup appointment Where: [phone] Medications What How Much When Why Instructions [...] day 04/19/2025 (more content not included)... Normal [facility] HEMATOLOGYOrdered By: SYSTEM SYSTEM on 04-18-2025 Basophils/100 [...] 04-18-2025 Inpatient Clinical Summary Inpatient Clinical Summary [address] [address] Clinical Summary Person Information: Name: NADIR BETH Age: 85 Years : 1940 Sex: Male PCP: Van Youssef MD Marital Status: Race: White Ethnicity: Non- or Language: Pakistani Visit Id: Visit Reason: Altered mental status; Headache; Potential stroke; stroke Speciality: Acuity: Enc Type: Inpatient Med Service: Medical Arrival: 04/14/2025 16:53:36 Discharge: Dispo Type: Admitted as IP to this Hosp Address: [address] [place] [address] [id number] Provider Notes: Diagnosis: 1:CVA (cerebrovascular accident); 2:Atrial [...] VERDUGO DO Consulting Physician: Clover Walker MD; [facility] [place], XXXX Referring Physician: Follow up: With: Address: When: Neurology [phone] Within 2 to 4 weeks Comments: Call for followup appointment Type Location Start [place] [facility] Office Visit [facility] [place] Alberto 06/11/2025 11:40 AM 06/11/2025 12:00 PM Confirmed Patient Education Information: Type 2 Diabetes Mellitus, Diagnosis, Adult; Atrial Fibrillation; Core Measures: Stroke (Cerebrovascular Accident) [facility], (Custom) Normal [facility] Inpatient Patient Summaryon 04-18-2025 Inpatient Patient Summary Inpatient Patient Summary [place] [address] Patient Discharge Instructions PERSON INFORMATION Name: NADIR BETH Date of : 1940 Current Date: 04/18/2025 12:27:53 PHYSICIANS Admitting Physician: Layne VERDUGO DO Primary Care Physician: Van oYussef MD PCP Comment: Discharge Diagnosis: 1:CVA (cerebrovascular [...] None Follow up: With: Address: When: Neurology [phone] Within 2 to 4 weeks Comments: Call for followup appointment In the event that this physician does not participate in your insurance network, please consult with your insurance company to find a nearby participating provider. Type Location Start [facility] Office Visit [facility] Alberto 06/11/2025 11:40 AM 06/11/2025 12:00 [...] ___ omepra (more content not included)... Normal [facility] Interdisciplinary Note - Zachery e Manageron 04-18-2025 Interdisciplinary Note - Machine Paint Mixer Interdisciplinary Note - Machine Paint Mixer Patient awake and alert eating breakfast in bed. and dtr at bedside. Patient has been accepted to [facility], patient has completed 3MN and can dc when medically clear. and daughter will transport at [place]. Patient will dc today. Denies any further concerns. Normal [facility] Comment on above: Result Comment: Elec tronically Signed By: Jihan De Oliveira\.br\Date and Time Signed: 04/18/25 09:36 EDT eGFRon 04-18-2025 eGFR 42 mL/min/1.73 m2 Low >=[address] [facility] Comment on above: Performed By: #### 1 [id number] #### [facility] [address] [place] [address] BMPon 04-17-2025 Anion gap [Moles/Vol] 15 mmol/L Normal 6-16 [facility] Comment on above: Performed By: #### 2 [id number] #### [facility] [address] [place] [address] BUN/Creat Ratio 21 No Units High 10-20 [facility] Comment on above: Performed By: #### 2 [id number] #### [facility] [address] [place] [address] Calcium [Mass/Vol] 8.8 mg/dL Low 8.9-11.[address] [facility] Comment on above: Performed By: #### 2 968146 #### [facility] [address] [place] [address] Chloride [Moles/Vol] 104 mmol/L Normal 101-111 [facility] Comment on above: Performed By: #### 2 766412 #### [facility] [address] [place] [address] CO2 [Moles/Vol] 26 mmol/L Normal 21-31 [facility] Comment on above: Performed By: #### 2 059149 #### [facility] [address] [place] [address] Creatinine [Mass/Vol] 1.6 mg/dL High 0.5-1.3 [facility] Comment on above: Performed By: #### 2 [id number] #### [facility] [address] [place] [address] Glucose [Mass/Vol] 222 mg/dL High 55-[address] [facility] Comment on above: Performed By: #### 2 303296 #### [facility] [address] [place] [address] Potassium [Moles/Vol] 4.1 mmol/L Normal 3.5-5.3 [facility] Comment on above: Performed By: #### 2 477148 #### [facility] [address] [place] [address] Sodium [Moles/Vol] 141 mmol/L Normal 135-[address] [facility] Comment on above: Performed By: #### 2 119281 #### [facility] [address] [place] [address] Urea nitrogen [Mass/Vol] 34 mg/dL High 5-[address] [facility] Comment on above: Performed By: #### 2 [id number] #### [facility] [address] [place] [address] CBC w/ Auto Diffon 5 Basophil Absolute 0.1 E9/L Normal 0.0-0.[address] [facility] Comment on above: Performed By: #### 2 009719 #### [facility] [address] [place] [address] Basophils/100 WBC (Bld) 0.6 % Normal 0.0-2.[address] [facility] Comment on above: Performed By: #### 2 [id number] #### [facility] [address] [place] [address] Eos Absolute 0.1 E9/L Normal 0.0-0.[address] [facility] Comment on above: Performed By: #### 2 010929 #### [facility] [address] [place] [address] Eosinophils/100 WBC (Bld) 0.6 % Normal 0.0-8.[address] [facility] Comment on above: Performed By: #### 2 [id number] #### [facility] [address] [place] [address] Erythrocyte distribution width (RBC) [Ratio] 20.3 % High 10.9-14.[address] [facility] Comment on above: Performed By: #### 2 [id number] #### [facility] [address] [place] [address] Hematocrit (Bld) [Volume fraction] 34.9 % Low 37.7-49.[address] [facility] Comment on above: Performed By: #### 2 848519 #### [facility] [address] [place] [address] Hemoglobin (Bld) [Mass/Vol] 11.2 g/dL Low 13.5-17.[address] [facility] Comment on above: Performed By: #### 2 [id number] #### [facility] [address] [place] [address] Lymph Absolute 0.7 E9/L Low 1.0-4.0 [facility] Comment on above: Performed By: #### 2 [id number] #### [facility] [address] [place] [address] Lymphocytes/100 WBC (Bld) 7.1 % Low 14.0-50.[address] [facility] Comment on above: Performed By: #### 2 [id number] #### [facility] [address] [place] [address] MCH (RBC) [Entitic mass] 27.5 pg Normal 27.0-34.[address] [facility] Comment on above: Performed By: #### 2 [id number] #### [facility] [address] [place] [address] MCHC (RBC) [Mass/Vol] 32.2 g/dL Normal 31.4-36.0 [facility] Comment on above: Performed By: #### 2 [id number] #### [facility] [address] [place] [address] MCV (RBC) [Entitic vol] 85.4 fL Normal 80.0-100.[address] [facility] Comment on above: Performed By: #### 2 [id number] #### [facility] [address] [place] [address] Van Zandt Absolute 1.4 E9/L High 0.2-1.0 [facility] Comment on above: Performed By: #### 2 [id number] #### [facility] [address] [place] [address] Monocytes/100 WBC (Bld) 13.7 % Normal 4.0-14.[address] [facility] Comment on above: Performed By: #### 2 [id number] #### [facility] [address] [place] [address] Neutro Absolute 7.7 E9/L High 2.0-7.5 [facility] Comment on above: Performed By: #### 2 [id number] #### [facility] [address] [place] [address] Neutro Auto 78.0 % High 36.0-75.[address] [facility] Comment on above: Performed By: #### 2 [id number] #### [facility] [address] [place] [address] Platelet 237.0 E9/L Normal 150.0-500.[address] [facility] Comment on above: Performed By: #### 2 [id number] #### [facility] [address] [place] [address] Platelet mean volume (Bld) [Entitic vol] 9.1 fL Normal 6.4-10.[address] [facility] Comment on above: Performed By: #### 2 [id number] #### [facility] [address] [place] [address] RBC 4.1 E12/L Low 4.3-5.[address] [facility] Comment on above: Performed By: #### 2 [id number] #### [facility] [address] [place] [address] WBC 9.9 E9/L Normal 4.0-11.[address] [facility] Comment on above: Performed By: #### 2 [id number] #### [facility] [address] [place] [address] CHEMISTRYOrdered By: Lab ROP User on 04-17-2025 Glucose [Mass/Vol] 203 mg/dL High 55 - 99 mg/dL [facility] [place] Subsection Comment on above: Result Comment: Tommie cortes RN/ POC Device SN [id number] Invalid Interpretation Code [facility] [place] Subsection POC Username JIMENA RIBEIRO Invalid Interpretation Code [facility] [place] Subsection Sodium [Moles/Vol] 829403007 mmol/L Invalid Interpretation Code [facility] [place] Subsection CHEMISTRYOrdered By: SYSTEM SYSTEM on [...] 060 Glucose [Mass/Vol] 203 mg/dL High 55-[address] [facility] Comment on above: Result Comment: Tommie HAGEN Performed By: #### 2 [id number] #### [facility] [address] [place] [address] Glucose [Mass/Vol] 240 mg/dL High 55-[address] [facility] Comment on above: Result Comment: Tommie HAGEN Performed By: #### 2 [id number] #### [facility] [address] [place] [address] Glucose [Mass/Vol] 304 mg/dL High 55-[address] [facility] Comment on above: Result Comment: Tommie HAGEN Performed By: #### 2 [id number] #### [facility] [address] [place] [address] Glucose [Mass/Vol] 191 mg/dL High 55-[address] [facility] Comment on above: Result Comment: Tommie HAGEN Performed By: #### 2 [id number] #### [facility] [address] [place] [address] Coding Queryon 04-17-2025 Coding Query Coding Query [...] on Chronic Diastolic (Preserved EF) Heart Failure [facility] Coding Query Coding Query From: Tanesha Mcdowell [...] __]Demand Ischemia (without a myocardial infarction) Normal [facility] HEMATOLOGYOrdered By: SYSTEM SYSTEM on 04-17-2025 Basophils/100 [...] Zachery e Manageron 04-17-2025 Interdisciplinary Note - Machine Paint Mixer Interdisciplinary Note - Machine Paint Mixer Patient awake and alert eating breakfast in bed. and dtr at bedside. Patient has been accepted to [facility], patient has completed 3MN and can dc when medically clear. and dtr unsure if they will transport patient or if they will need transport set up. Dtr states she would like to see how patient does with PT first. Denies any further concerns. Family will transport patient to [facility]. Normal [facility] Comment on above: Result Comment: Elec tronically Signed By: Jihan De Oliveira\.br\Date and Time Signed: 04/17/25 10:54 EDT Interdisciplinary Note - Machine Paint Mixer Interdisciplinary Note - Machine Paint Mixer Patient awake and alert eating breakfast in bed. and dtr at bedside. Patient has been accepted to [facility], patient has completed 3MN and can dc when medically clear. and dtr unsure if they will transport patient or if they will need transport set up. Dtr states she would like to see how patient does with PT first. Denies any further concerns. Normal [facility] Comment on above: Result Comment: Elec tronically Signed By: Jihan De Oliveira\.br\Date and Time Signed: 04/17/25 08:41 EDT RPR with Conf Rfxon 04-17-20 25 RPR Qual Non-Reactive Invalid Interpretation Code Non Reactive [facility] Comment on above: Result Comment: Perf ormed at: [facility] [address] [id number] PhD Huan Vyas Performed By: #### 1 [id number] #### [facility] [address] [place] [address] eGFRon 04-17-2025 eGFR 42 mL/min/1.73 m2 Low >=[address] [facility] Comment on above: Performed By: #### 1 [id number] #### [facility] [address] [place] [address] BMPon 04-16-2025 Anion gap [Moles/Vol] 18 mmol/L High 6-16 [facility] Comment on above: Performed By: #### 2 [id number] #### [facility] [address] [place] [address] BUN/Creat Ratio 19 No Units Normal 10-20 [facility] Comment on above: Performed By: #### 2 [id number] #### [facility] [address] [place] [address] Calcium [Mass/Vol] 9.2 mg/dL Normal 8.9-11.[address] [facility] Comment on above: Performed By: #### 2 [id number] #### [facility] [address] [place] [address] Chloride [Moles/Vol] 103 mmol/L Normal 101-111 [facility] Comment on above: Performed By: #### 2 [id number] #### [facility] [address] [place] [address] CO2 [Moles/Vol] 24 mmol/L Normal 21-31 [facility] Comment on above: Performed By: #### 2 [id number] #### [facility] [address] [place] [address] Creatinine [Mass/Vol] 1.7 mg/dL High 0.5-1.3 [facility] Comment on above: Performed By: #### 2 107522 #### [facility] [address] [place] [address] Glucose [Mass/Vol] 212 mg/dL High 55-[address] [facility] Comment on above: Performed By: #### 2 [id number] #### [facility] [address] [place] [address] Potassium [Moles/Vol] 3.9 mmol/L Normal 3.5-5.3 [facility] Comment on above: Performed By: #### 2 [id number] #### [facility] [address] [place] [address] Sodium [Moles/Vol] 141 mmol/L Normal 135-[address] [facility] Comment on above: Performed By: #### 2 [id number] #### [facility] [address] [place] [address] Urea nitrogen [Mass/Vol] 33 mg/dL High 5-[address] [facility] Comment on above: Performed By: #### 2 [id number] #### [facility] [address] [place] [address] CBC w/ Auto Diffon 5 Basophil Absolute 0.0 E9/L Normal 0.0-0.[address] [facility] Comment on above: Performed By: #### 2 105353 #### [facility] [address] [place] [address] Basophils/100 WBC (Bld) 0.1 % Normal 0.0-2.[address] [facility] Comment on above: Performed By: #### 2 226404 #### [facility] [address] [place] [address] Eos Absolute 0.0 E9/L Normal 0.0-0.[address] [facility] Comment on above: Performed By: #### 2 362115 #### [facility] [address] [place] [address] Eosinophils/100 WBC (Bld) 0.2 % Normal 0.0-8.[address] [facility] Comment on above: Performed By: #### 2 [id number] #### [facility] [address] [place] [address] Erythrocyte distribution width (RBC) [Ratio] 20.4 % High 10.9-14.[address] [facility] Comment on above: Performed By: #### 2 [id number] #### [facility] [address] [place] [address] Hematocrit (Bld) [Volume fraction] 37.2 % Low 37.7-49.[address] [facility] Comment on above: Performed By: #### 2 [id number] #### [facility] [address] [place] [address] Hemoglobin (Bld) [Mass/Vol] 11.9 g/dL Low 13.5-17.[address] [facility] Comment on above: Performed By: #### 2 [id number] #### [facility] [address] [place] [address] Lymph Absolute 0.7 E9/L Low 1.0-4.0 [facility] Comment on above: Performed By: #### 2 [id number] #### [facility] [address] [place] [address] Lymphocytes/100 WBC (Bld) 4.6 % Low 14.0-50.[address] [facility] Comment on above: Performed By: #### 2 723107 #### [facility] [address] [place] [address] MCH (RBC) [Entitic mass] 27.2 pg Normal 27.0-34.[address] [facility] Comment on above: Performed By: #### 2 179443 #### [facility] [address] [place] [address] MCHC (RBC) [Mass/Vol] 32.0 g/dL Normal 31.4-36.0 [facility] Comment on above: Performed By: #### 2 291403 #### [facility] [address] [place] [address] MCV (RBC) [Entitic vol] 84.9 fL Normal 80.0-100.[address] [facility] Comment on above: Performed By: #### 2 002324 #### [facility] [address] [place] [address] Van Zandt Absolute 1.6 E9/L High 0.2-1.0 [facility] Comment on above: Performed By: #### 2 [id number] #### [facility] [address] [place] [address] Monocytes/100 WBC (Bld) 10.8 % Normal 4.0-14.[address] [facility] Comment on above: Performed By: #### 2 [id number] #### [facility] [address] [place] [address] Neutro Absolute 12.3 E9/L High 2.0-7.5 [facility] Comment on above: Performed By: #### 2 [id number] #### [facility] [address] [place] [address] Neutro Auto 84.3 % High 36.0-75.[address] [facility] Comment on above: Performed By: #### 2 [id number] #### [facility] [address] [place] [address] Platelet 268.0 E9/L Normal 150.0-500.[address] [facility] Comment on above: Performed By: #### 2 [id number] #### [facility] [address] [place] [address] Platelet mean volume (Bld) [Entitic vol] 8.7 fL Normal 6.4-10.[address] [facility] Comment on above: Performed By: #### 2 [id number] #### [facility] [address] [place] [address] RBC 4.4 E12/L Normal 4.3-5.[address] [facility] Comment on above: Performed By: #### 2 [id number] #### [facility] [address] [place] [address] WBC 14.6 E9/L High 4.0-11.[address] [facility] Comment on above: Performed By: #### 2 768674 #### [facility] [address] [place] [address] CHEMISTRYOrdered By: SYSTEM SYSTEM on 04-16-2025 Anion [...] POCon Glucose [Mass/Vol] 265 mg/dL High 55-[address] [facility] Comment on above: Result Comment: Tommie cortes RN/ Performed By: #### 2 [id number] #### [facility] [address] [place] [address] Glucose [Mass/Vol] 246 mg/dL High 55-[address] [facility] Comment on above: Result Comment: Tommie cortes RN/ Performed By: #### 2 [id number] #### [facility] [address] [place] [address] Glucose [Mass/Vol] 294 mg/dL High 55-[address] [facility] Comment on above: Result Comment: Tommie cortes RN/ Performed By: #### 2 [id number] #### [facility] [address] [place] [address] Glucose [Mass/Vol] 195 mg/dL High 55-[address] [facility] Comment on above: Result Comment: Tommie HAGEN Performed By: #### 2 [id number] #### [facility] [address] [place] [address] Coding Queryon 04-16-2025 Coding Query Coding Query [...] desired or expected. Thank you!tanesha [phone] [facility] HEMATOLOGYOrdered By: SYSTEM SYSTEM on 04-16-2025 Basophils/100 [...] High 4.0 - 11.0 E9/L Remisol Heme [id number] 04-16-2025 HbA1c (Bld) [Mass fraction] 9.9 % High <=5.[address] [facility] Comment on above: Performed By: #### 7 [id number] #### [facility] [address] [place] [address] Inpatient Clinical Summaryon 04-16-2025 Inpatient Clinical Summary Inpatient Clinical Summary [address] [address] Clinical Summary Person Information: Name: NADIR BETH Age: 85 Years : 1940 Sex: Male PCP: Van Youssef MD Marital Status: Race: White Ethnicity: Non- or Language: Pakistani Visit Id: Visit Reason: Altered mental status; Headache; Potential stroke; stroke Speciality: Acuity: Enc Type: Inpatient Med Service: Medical Arrival: 04/14/2025 16:53:36 Discharge: Dispo Type: Admitted as IP to this Hosp Address: [address] [place] [address] [id number] Provider Notes: Diagnosis: 1:CVA (cerebrovascular accident); 2:Atrial [...] VERDUGO DO Consulting Physician: Clover Walker MD; [facility] [place], [place]; [facility] [place]ound, [place] Referring Physician: Follow up: With: Address: When: Neurology [phone] Within 2 to 4 weeks Comments: Call for followup a (more content not included)... Normal [facility] Inpatient Patient Summaryon 04-16-2025 Inpatient Patient Summary Inpatient Patient Summary [address] [address] Patient Discharge Instructions PERSON INFORMATION [...] test results: Follow up: With: Address: When: [facility] [phone] Within 2 to 4 weeks Comments: Call for followup appointment In the event that this physician does not participate in your insurance network, please consult with your insurance company to find a nearby participating provider. Type Location Start [facility] Office Visit [facility] 06/11/2025 11:40 AM 06/11/2025 12:00 PM Confirmed [...] day. La (more content not included)... Normal [facility] Interdisciplinary Note - Zachery e Manageron 04-16-2025 Interdisciplinary Note - Machine Paint Mixer Interdisciplinary Note - Machine Paint Mixer CRM to room 202 Patient is awake, [...] and pericardial effusion. Patient is assigned to [facility], see notes. Patient has wound, cardiology and neurology on case. Patient is pending MRI. He is getting an ECHO now. Patient has recs from therapy for SNF. Patient spouse would like him referred to [facility]. Patient can DC there if accepted on 6/3 per 3 M needed. Patient white board updated. CRM following, contact info provided. DC plan SNF, pending [facility] accepts for SNF stay Normal [facility] Comment on above: Result Comment: Elec tronically Signed By: Cierra Rouse\.br\Date and Time Signed: 04/16/25 11:58 EDT Interdisciplinary Note - Machine Paint Mixer Interdisciplinary Note - Machine Paint Mixer CRM to room 202 Patient is awake, [...] and pericardial effusion. Patient is assigned to [facility] CARE PHYSICIAN, see notes. Patient has wound, cardiology and neurology on case. Patient is pending MRI. He is getting an ECHO now. Patient has recs from therapy for SNF. Patient spouse would like him referred to [facility]. Patient can DC there if accepted on 6/3 per 3 M needed. Patient white board updated. CRM following, contact info provided. DC plan SNF, pending [facility] Normal [facility] Comment on above: Result [...] follow up out patient wound clinic Normal [facility] Interdisciplinary Note - Denise n 06-02-2025 Interdisciplinary Note - OT Interdisciplinary Note - OT OT [facility] six clicks score 16/24 = SNF. Patient requires MIN A w/ sit to stand transfers at eob, Min- mod A w dynamic standing adls. Pt requires mod vc for walker safety and sequencing w/ all functional tasks. Inpatient OT services to follow daily to progress as tolerates w/ self help skills. Normal [facility] MRI Brain w/o Contraston MRI Brain w/o [...] Mac Transcribed by: MARII Technologist: JOSE Tovar [facility] Magnesiumon 04-16-2025 Magnesium [Mass/Vol] 2.4 mg/dL Normal 1.3-2.4 [facility] Comment on above: Performed By: #### 2 [id number] #### [facility] [address] [place] [address] eGFRon 04-16-2025 eGFR 39 mL/min/1.73 m2 Low >=[address] [facility] Comment on above: Performed By: #### 1 [id number] #### [facility] [address] [place] [address] BMPon 04-15-2025 Anion gap [Moles/Vol] 20 mmol/L High 6-16 [facility] Comment on above: Performed By: #### 2 [id number] #### [facility] [address] [place] [address] BUN/Creat Ratio 18 No Units Normal 10-20 [facility] Comment on above: Performed By: #### 2 [id number] #### [facility] [address] [place] [address] Calcium [Mass/Vol] 9.4 mg/dL Normal 8.9-11.[address] [facility] Comment on above: Performed By: #### 2 [id number] #### [facility] [address] [place] [address] Chloride [Moles/Vol] 102 mmol/L Normal 101-111 [facility] Comment on above: Performed By: #### 2 [id number] #### [facility] [address] [place] [address] CO2 [Moles/Vol] 24 mmol/L Normal 21-31 [facility] Comment on above: Performed By: #### 2 [id number] #### [facility] [address] [place] [address] Creatinine [Mass/Vol] 1.7 mg/dL High 0.5-1.3 [facility] Comment on above: Performed By: #### 2 [id number] #### [facility] [address] [place] [address] Glucose [Mass/Vol] 208 mg/dL High 55-[address] [facility] Comment on above: Performed By: #### 2 [id number] #### [facility] [address] [place] [address] Potassium [Moles/Vol] 4.0 mmol/L Normal 3.5-5.3 [facility] Comment on above: Performed By: #### 2 [id number] #### [facility] [address] [place] [address] Sodium [Moles/Vol] 142 mmol/L Normal 135-[address] [facility] Comment on above: Performed By: #### 2 [id number] #### [facility] [address] [place] [address] Urea nitrogen [Mass/Vol] 30 mg/dL High 5-[address] [facility] Comment on above: Performed By: #### 2 [id number] #### [facility] [address] [place] [address] CHEMISTRYOrdered By: SYSTEM SYSTEM on 04-15-2025 Cholesterol [...] (Bld) [Mass fraction] 9.9 % High <=5.9% [facility] ChemAutoSS COAGULATIONOrdered By: Deb Maza on 04-15-2025 aPTT Coag (PPP) [Time] 45.1 s High 25.1 - 36.5 second(s) [facility] Comment on above: Interpretive Data: P arameter 15 days - 4 weeks 1 - 5 months 6 - 11 months 1 - 5 years 6 - 10 years 11 - 17 years PTT Mean: 35.4 (27.6-45.6) Mean: 33.5 (24.8-40.7) Mean: 32.4 (25.1-40.7) Mean: 31.6 (24.0-39.2) Mean: 31.6 (26.9-38.7) Mean: 31.0 (24.6-38.4) Pediatric Reference ranges were obtained from a study by oHod Sun et al. prepared from 1437 samples obtained at 7 different centers using the same coagulation reagent and instrumentation as [facility]. Currently there are no coagulation studies available worldwide for children to 14 days, and no normal ranges. Heparin therapeutic range (represented by Anti-Factor Xa activity of 0.2 - 0.4 U/mL) corresponds to PTT of 56.6 - 109.0 sec. INR Coag (PPP) [Relative time] 0.95 {INR} Invalid Interpretation Code [facility] Comment on above: Interpretive Data: I NR results are specifically intended to assess patients stabilized on long-term Anticoagulation therapy suggested INR s Less Intensive Anticoagulation 2.0 3.0 Conventional Range 3.0 4.5 PT Coag (PPP) [Time] 10.6 s Normal 9.4 - 1 2.5 second(s) [facility] Comment on above: Interpretive Data: [...] the same coagulation reagent and instrumentation as [facility]. Currently there are no coagulation studies available worldwide for children to 14 days, and no normal ranges. COAGULATIONOrdered By: Marty Naidu on 04-15-2025 aPTT Coag (PPP) [Time] 53.2 s High 25.1 - 36.5 second(s) [facility] Comment on above: Interpretive Data: [...] the same coagulation reagent and instrumentation as [facility]. Currently there are no coagulation studies available worldwide for children to 14 days, and no normal ranges. Heparin therapeutic range (represented by Anti-Factor Xa activity of 0.2 - 0.4 U/mL) corresponds to PTT of 56.6 - 109.0 sec. INR Coag (PPP) [Relative time] 0.96 {INR} Invalid Interpretation Code [facility] Comment on above: Interpretive Data: I NR results are specifically intended to assess patients stabilized on long-term Anticoagulation therapy suggested INR s Less Intensive Anticoagulation 2.0 3.0 Conventional Range 3.0 4.5 PT Coag (PPP) [Time] 10.8 s Normal 9.4 - 1 2.5 second(s) [facility] Comment on above: Interpretive Data: [...] the same coagulation reagent and instrumentation as [facility]. Currently there are no coagulation studies available worldwide for children to 14 days, and no normal ranges. Capillary Glucose POCon 06-0 Glucose [Mass/Vol] 177 mg/dL High 55-[address] [facility] Comment on above: Result Comment: Tommie HAGEN Performed By: #### 2 [id number] #### [facility] [address] [place] [address] Glucose [Mass/Vol] 202 mg/dL High 55-[address] [facility] Comment on above: Result Comment: Tommie HAGEN Performed By: #### 2 [id number] #### [facility] [address] [place] [address] Glucose [Mass/Vol] 216 mg/dL High 55-[address] [facility] Comment on above: Result Comment: Tommie HAGEN Performed By: #### 2 [id number] #### [facility] [facility] [address] [place] [address] Glucose [Mass/Vol] 242 mg/dL High 55-[address] [facility] Comment on above: Result Comment: Tommie cortes RN/ Performed By: #### 2 [id number] #### [facility] [address] [place] [address] Extra Hobson 04-15-2025 WB Tube Collected Yes Invalid Interpretation Code [facility] Comment on above: Performed By: #### 1 [id number] #### [facility] [address] [place] [address] Folateon 04-15-2025 Folate Lvl >22.3 Normal >=6.[address] [facility] Comment on above: Performed By: #### 2 [id number] #### [facility] [address] [place] [address] Hemoglobinon 04-15-2025 Hemoglobin (Bld) [Mass/Vol] 12.2 g/dL Low 13.5-17.[address] [facility] Comment on above: Performed By: #### 2 [id number] #### [facility] [address] [place] [address] Interdisciplinary Note - Denise n 04-15-2025 Interdisciplinary Note - OT Interdisciplinary Note - OT OT chart reviewed and spoke to nursing with request to hold today until pt. is more medically stable. Will recheck tomorrow. Normal [facility] Interdisciplinary Note - Spe ech Languageon 04-15-2025 [...] to 5x/week to address these deficits. Normal [facility] Lipid Panelon 04-15-2025 Cholesterol [Mass/Vol] 210 mg/dL High 120-[address] [facility] Comment on above: Performed By: #### 2 [id number] #### [facility] [address] [place] [address] Cholesterol in HDL [Mass/Vol] 88 mg/dL Invalid Interpretation Code [facility] Comment on above: Result Comment: '>= 60 LOW RISK' '<= 40 HIGH RISK' Performed By: #### 2 [id number] #### [facility] [address] [place] [address] Cholesterol in LDL [Mass/Vol] 107 mg/dL Normal <=[address] [facility] Comment on above: Performed By: #### 2 [id number] #### [facility] [address] [place] [address] Cholesterol in VLDL [Mass/Vol] 9 mg/dL Normal 7-[address] [facility] Comment on above: Performed By: #### 2 [id number] #### [facility] [address] [place] [address] Triglyceride [Mass/Vol] 44 mg/dL Normal <=[address] [facility] Comment on above: Performed By: #### 2 [id number] #### [facility] [address] [place] [address] Magnesiumon 04-15-2025 Magnesium [Mass/Vol] 2.6 mg/dL High 1.3-2.4 [facility] Comment on above: Performed By: #### 2 [id number] #### [facility] [address] [place] [address] PT & PTTon 04-15-2025 INR Coag (PPP) [Relative time] 0.95 {INR} Invalid Interpretation Code [facility] Comment on above: Result Comment: INR results are specifically intended to assess patients stabilized on long-term Anticoagulation therapy suggested INR???s ???Less Intensive Anticoagulation??? 2.0 ??? 3.0 Conventional Range 3.0 ??? 4.5 Performed By: #### 1 [id number] #### [facility] [address] [place] [address] PT 10.6 second(s) Normal 9.4-12.5 [facility] Comment on above: Result Comment: 15 d [...] the same coagulation reagent and instrumentation [place] [facility] Currently there are no coagulation studies available worldwide for children to 14 days, and no normal ranges. Performed By: #### 1 [id number] #### [facility] [address] [place] [address] PTT 45.1 second(s) High 25.1-36.5 [facility] Comment on above: Result Comment: Para meter [...] the same coagulation reagent and instrumentation as [facility]. Currently there are no coagulation studies available worldwide for children to 14 days, and no normal ranges. Heparin therapeutic range (represented by Anti-Factor Xa activity of 0.2 - 0.4 U/mL) corresponds to PTT of 56.6 - 109.0 sec. Performed By: #### 1 [id number] #### [facility] [address] [place] [address] INR Coag (PPP) [Relative time] 0.96 {INR} Invalid Interpretation Code [facility] Comment on above: Result Comment: INR results are specifically intended to assess patients stabilized on long-term Anticoagulation therapy suggested INR???s ???Less Intensive Anticoagulation??? 2.0 ??? 3.0 Conventional Range 3.0 ??? 4.5 Performed By: #### 1 [id number] #### [facility] [address] [place] [address] PT 10.8 second(s) Normal 9.4-12.5 [facility] Comment on above: Result Comment: 15 d [...] the same coagulation reagent and instrumentation as [facility]. Currently there are no coagulation studies available worldwide for children to 14 days, and no normal ranges. Performed By: #### 1 [id number] #### [facility] [address] [place] [address] PTT 53.2 second(s) High 25.1-36.5 [facility] Comment on above: Result Comment: Para meter [...] the same coagulation reagent and instrumentation as [facility]. Currently there are no coagulation studies available worldwide for children to 14 days, and no normal ranges. Heparin therapeutic range (represented by Anti-Factor Xa activity of 0.2 - 0.4 U/mL) corresponds to PTT of 56.6 - 109.0 sec. Performed By: #### 1 [id number] #### [facility] [address] [place] [address] Platelet Counton 04-15-2025 Platelet 299.0 E9/L Normal 150.0-500.[address] [facility] Comment on above: Performed By: #### 2 [id number] #### [facility] [address] [place] [address] Reference Laboratory Testing Ordered By: Generated DomainUser on 04-15-2025 Reagin Ab RPR Ql (S) Non-Reactive Invalid Interpretation Code Non Reactive [facility] Comment on above: Result Comment: Perf ormed at: [facility] [address] [id number] PhD Huan Vyas TSH With T4fr Reflexon 04-15 TSH Qn 0.50 m[IU]/L Normal 0.34-5.[address] [facility] Comment on above: Performed By: #### 1 [id number] #### [facility] [address] [place] [id number] Troponinon 04-15-2025 Troponin HS 62.60 pg/mL Abnormal 15.90-38.40 [facility] Comment on above: Result Comment: Crit [...] Blanca, June 2018) Performed By: #### 2 [id number] #### [facility] [address] [place] [address] UA with Cult Rflxon 04-15-20 25 Color (U) Light-Yellow Normal Yellow [facility] Comment on above: Result Comment: Micr oscopic readings are only performed on those samples that meet specific criteria set forth by [facility]. Performed By: #### 4 [id number] #### [facility] [address] [place] [address] Ketones Ql (U) 1+ mg/dL Abnormal Negative [facility] Comment on above: Performed By: #### 4 [id number] #### [facility] [address] [place] [address] UA Blood Trace Abnormal Negative [facility] Comment on above: Performed By: #### 4 [id number] #### [facility] [address] [place] [address] UA Clarity Clear Normal Clear [facility] Comment on above: Performed By: #### 4 [id number] #### [facility] [address] [place] [address] UA Glucose 4+ mg/dL Abnormal Negative [facility] Comment on above: Performed By: #### 4 [id number] #### [facility] [address] [place] [address] UA Leuk Est Negative Normal Negative [facility] Comment on above: Performed By: #### 4 [id number] #### [facility] [address] [place] [address] UA Nitrite Negative Normal Negative [facility] Comment on above: Performed By: #### 4 [id number] #### [facility] [address] [place] [address] UA pH 6.0 Invalid Interpretation Code 5.0-9.[address] [facility] Comment on above: Performed By: #### 4 [id number] #### [facility] [address] [place] [address] UA Protein Negative Normal Negative [facility] Comment on above: Performed By: #### 4 [id number] #### [facility] [address] [place] [address] UA Spec Grav 1.023 Invalid Interpretation Code 1.005-1.[address] [facility] Comment on above: Performed By: #### 4 [id number] #### [facility] [address] [place] [address] UA Urobilinogen Negative Normal Negative [facility] Comment on above: Performed By: #### 4 [id number] #### [facility] [address] [place] [address] Urobilinogen (U) [Mass/Vol] Negative Normal Negative [facility] Comment on above: Performed By: #### 4 [id number] #### [facility] [address] [place] [address] URINALYSISOrdered By: SYSTEM SYSTEM on 04-15-2025 Bilirubin Ql (U) Negative Normal Negativemg/ d L [facility] UA Auto SS Clarity (U) Clear (04/15/25 4:58 AM) Normal Clear [facility] UA Auto SS Color (U) Light-Yellow 1 (04/15/25 4:58 AM) Normal Yellow [facility] UA Auto SS Comment on above: Interpretive Data: M icroscopic readings are only performed on those samples that meet specific criteria set forth by [facility]. Glucose Ql (U) 4+ mg/dL Invalid [...] Urobilinogen (U) [Mass/Vol] Negative Normal Negativemg/d L [facility] UA Auto SS URINALYSISOrdered By: Nick Farmer on 04-15-2025 UA Spec Desc Clean Catch (04/15/25 4:58 AM) Normal [facility] UA Auto SS Vit B12on 04-15-2025 Cobalamin (Vitamin B12) [Mass/Vol] 573 pg/mL Normal 50-[address] [facility] Comment on above: Performed By: #### 2 [id number] #### [facility] [address] [place] [address] eGFRon 04-15-2025 eGFR 39 mL/min/1.73 m2 Low >=[address] [facility] Comment on above: Performed By: #### 1 [id number] #### [facility] [address] [place] [address] BB Draw & Holdon 04-14-2025 BB D&H Sample drawn for Blo od Ba Normal [facility] Comment on above: Performed By: #### 1 [id number] #### [facility] [address] [place] [address] BMPon 04-14-2025 Anion gap [Moles/Vol] 15 mmol/L Normal 6-16 [facility] Comment on above: Performed By: #### 2 [id number] #### [facility] [address] [place] [address] BUN/Creat Ratio 16 No Units Normal 10-20 [facility] Comment on above: Performed By: #### 2 [id number] #### [facility] [address] [place] [address] Calcium [Mass/Vol] 9.0 mg/dL Normal 8.9-11.[address] [facility] Comment on above: Performed By: #### 2 [id number] #### [facility] [address] [place] [address] Chloride [Moles/Vol] 103 mmol/L Normal 101-111 [facility] Comment on above: Performed By: #### 2 [id number] #### [facility] [address] [place] [address] CO2 [Moles/Vol] 24 mmol/L Normal 21-31 [facility] Comment on above: Performed By: #### 2 [id number] #### [facility] [address] [place] [address] Creatinine [Mass/Vol] 1.8 mg/dL High 0.5-1.3 [facility] Comment on above: Performed By: #### 2 [id number] #### [facility] [address] [place] [address] Glucose [Mass/Vol] 245 mg/dL High 55-[address] [facility] Comment on above: Performed By: #### 2 [id number] #### [facility] [address] [place] [address] Potassium [Moles/Vol] 5.0 mmol/L Normal 3.5-5.3 [facility] Comment on above: Performed By: #### 2 [id number] #### [facility] [address] [place] [address] Sodium [Moles/Vol] 137 mmol/L Normal 135-[address] [facility] Comment on above: Performed By: #### 2 [id number] #### [facility] [address] [place] [address] Urea nitrogen [Mass/Vol] 28 mg/dL High 5-[address] [facility] Comment on above: Performed By: #### 2 [id number] #### [facility] [address] [place] [address] BNPon 04-14-2025 Natriuretic peptide B (Bld) [Mass/Vol] 512 pg/mL High 5-[address] [facility] Comment on above: Performed By: #### 1 [id number] #### [facility] [address] [place] [address] CBC w/ Auto Diffon 5 Basophil Absolute 0.1 E9/L Normal 0.0-0.[address] [facility] Comment on above: Performed By: #### 2 [id number] #### [facility] [address] [place] [address] Basophils/100 WBC (Bld) 0.8 % Normal 0.0-2.[address] [facility] Comment on above: Performed By: #### 2 [id number] #### [facility] [address] [place] [address] Eos Absolute 0.1 E9/L Normal 0.0-0.[address] [facility] Comment on above: Performed By: #### 2 [id number] #### [facility] [address] [place] [address] Eosinophils/100 WBC (Bld) 1.5 % Normal 0.0-8.[address] [facility] Comment on above: Performed By: #### 2 [id number] #### [facility] [address] [place] [address] Erythrocyte distribution width (RBC) [Ratio] 19.7 % High 10.9-14.[address] [facility] Comment on above: Performed By: #### 2 [id number] #### [facility] [address] [place] [address] Hematocrit (Bld) [Volume fraction] 33.7 % Low 37.7-49.[address] [facility] Comment on above: Performed By: #### 2 [id number] #### [facility] [address] [place] [address] Hemoglobin (Bld) [Mass/Vol] 11.0 g/dL Low 13.5-17.[address] [facility] Comment on above: Performed By: #### 2 [id number] #### [facility] [address] [place] [address] Lymph Absolute 0.6 E9/L Low 1.0-4.0 [facility] Comment on above: Performed By: #### 2 [id number] #### [facility] [address] [place] [address] Lymphocytes/100 WBC (Bld) 7.8 % Low 14.0-50.[address] [facility] Comment on above: Performed By: #### 2 [id number] #### [facility] [address] [place] [address] MCH (RBC) [Entitic mass] 27.5 pg Normal 27.0-34.[address] [facility] Comment on above: Performed By: #### 2 [id number] #### [facility] [address] [place] [address] MCHC (RBC) [Mass/Vol] 32.7 g/dL Normal 31.4-36.0 [facility] Comment on above: Performed By: #### 2 [id number] #### [facility] [address] [place] [address] MCV (RBC) [Entitic vol] 84.0 fL Normal 80.0-100.[address] [facility] Comment on above: Performed By: #### 2 [id number] #### [facility] [address] [place] [address] Van Zandt Absolute 0.8 E9/L Normal 0.2-1.0 [facility] Comment on above: Performed By: #### 2 [id number] #### [facility] [address] [place] [address] Monocytes/100 WBC (Bld) 9.9 % Normal 4.0-14.[address] [facility] Comment on above: Performed By: #### 2 [id number] #### [facility] [address] [place] [address] Neutro Absolute 6.5 E9/L Normal 2.0-7.5 [facility] Comment on above: Performed By: #### 2 [id number] #### [facility] [address] [place] [address] Neutro Auto 80.0 % High 36.0-75.[address] [facility] Comment on above: Performed By: #### 2 [id number] #### [facility] [address] [place] [address] Platelet 216.0 E9/L Normal 150.0-500.[address] [facility] Comment on above: Performed By: #### 2 [id number] #### [facility] [address] [place] [address] Platelet mean volume (Bld) [Entitic vol] 9.3 fL Normal 6.4-10.[address] [facility] Comment on above: Performed By: #### 2 [id number] #### [facility] [address] [place] [address] RBC 4.0 E12/L Low 4.3-5.[address] [facility] Comment on above: Performed By: #### 2 [id number] #### [facility] [address] [place] [address] WBC 8.1 E9/L Normal 4.0-11.[address] [facility] Comment on above: Result Comment: Rosaura pheral smear review performed. Performed By: #### 2 [id number] #### [facility] [address] [place] [address] CHEMISTRYOrdered By: [employer] on 04-14-2025 Lactate [Moles/Vol] 1.5 mmol/L [...] 512 pg/mL High 5 - 80 pg/mL [facility] CHEMISTRYOrdered By: Samir Naidu on 04-14-2025 Magnesium [...] 33.3 s Normal 25.1 - 36.5 second(s) [facility] Auto Coag Comment on above: Interpretive Data: [...] the same coagulation reagent and instrumentation as [facility]. Currently there are no coagulation studies available worldwide for children to 14 days, and no normal ranges. Heparin therapeutic range (represented by Anti-Factor Xa activity of 0.2 - 0.4 U/mL) corresponds to PTT of 56.6 - 109.0 sec. INR Coag (PPP) [Relative time] 0.98 {INR} Invalid Interpretation Code [facility] Auto Coag Comment on above: Interpretive Data: I NR results are specifically intended to assess patients stabilized on long-term Anticoagulation therapy suggested INR s Less Intensive Anticoagulation 2.0 3.0 Conventional Range 3.0 4.5 PT Coag (PPP) [Time] 11.0 s Normal 9.4 - 1 2.5 second(s) [facility] Auto Coag Comment on above: Interpretive Data: [...] the same coagulation reagent and instrumentation as [facility]. Currently there are no coagulation studies available [...] DO Transcribed by: MARII Technologist: ADÁN Tovar [facility] CT Head or Brain w/o Contras ton [...] DO Transcribed by: MARII Technologist: ADÁN Tovar [facility] CTA Headon 04-14-2025 CTA Head Exam Date/Time: 04/14/2025 17:33 EDT Reason for Exam: NEURO DEFICIT, ACUTE, STROKE SUSPECTED;Other (please specify) Report Please see CTA neck report. Ordering Provider: Rivas Griggs FINAL REPORT Dictated: 04/14/2025 5:55 pm Yoel Rodriguez DO Signed (Electronic Signature): 04/14/2025 5:55 pm Signed by: Yoel Rodriguez DO Transcribed by: MARII Technologist: CONSTANTIN Tovar [facility] CTA Neckon 04-14-2025 CTA Neck Exam Date/Time: [...] obtained from the thoracic inlet through the hopi of [place] after administration of intravenous contrast. [...] DO Transcribed by: MARII Technologist: CONSTANTIN Normal [facility] Capillary Glucose POCon 03-17 Glucose [Mass/Vol] 261 mg/dL High 55-[address] [facility] Comment on above: Performed By: #### 2 [id number] #### [facility] [address] [place] [address] ED Clinical Summaryon 2024 ED Clinical Summary ED Clinical Summary [address] [address] ED Clinical Summary Person Information Name: NADIR BETH [facility] Age: 85 Years : 1940 Sex: Male Language: Pakistani PCP: Van Youssef MD Marital Status: Visit Id: Visit Reason: Altered mental status; Headache; Potential stroke; stroke Speciality: Acuity: 2 Enc Type: Inpatient Med Service: Medical Arrival: 04/14/2025 16:53:36 Discharge: LOS: 000 03:59 Checkin: 04/14/2025 16:53:36 Checkout: 04/14/2025 20:52:18 Dispo Type: Admitted as IP to this [facility] EVENTS: Event Name Event Status Request [...] 19:37:19 Pending Labs Request 04/14/2025 19:50:50 ADDRESS: [address] [place] [phone] PHYS DOC NOTES: Addendum by Oleg Doll DO on April 14, 2025 19:50:02 EDT MEDICAL INFORMATION: Prescriptions Given: Medications to Continue with No Changes Other Medications acetaminophen-hydrocod one ([place] 325 mg-5 mg oral tablet) 1 Tablets [...] the morn (more content not included)... Normal [facility] ED Note-Physicianon 04-14-20 ED Note-Physician ED Note-Physician Basic Information Time Seen: Indu Slaughter, Rivas Hill 04/14/2025 17:02 Chief Complaint pt presents via [facility] d/t ams. family states pt complains of [...] and Complexity of Problems Differential Diagnosis: [] [facility] Data External documents reviewed: [] My EKG [...] cardiac and/ (more content not included)... Normal [facility] Comment on above: Result Comment: Elec tronically Signed By: Oleg Doll DO.mary\Date and Time Signed: 04/14/25 19:50 EDT ED Patient Education Noteon 04-14-2025 ED Patient Education Note ED Patient Education Note Normal [facility] ED Patient Summaryon 025 ED Patient Summary ED Patient Summary [place] [address] Patient Discharge Instructions Person Information Name: NADIR BETH Age: 85 Years Arrival Date: 04/14/2025 16:53:36 Discharge Diagnosis: 1:CVA (cerebrovascular accident); 2:Congestive heart failure; 3:Chronic kidney disease; 4:Hypertensive urgency; Pericardial effusion; Pleural effusion Primary Care Physician: Van Youssef MD Provider Information Primary Provider: Rivas Griggs M.D. Advanced [place] Singer:None The exam and treatment you received in the Emergency Department were for an urgent problem and are not intended as complete care. It is important that you follow up with a doctor, nurse practitioner, or physician???s visitor services assistant for ongoing care. If your symptoms [...] opioids can be used to help relieve rsiivsgt-tp-wyhcnj pain and are often prescribed following a [...] be struggling with addiction, tell your health early breastfeeding care specialist and ask for guidance or call [facility] (more content not included)... Normal [facility] Lactic Acidon 04-14-2025 Lactic Acid Lvl 1.5 mmol/L Normal 0.5-2.2 [facility] Comment on above: Performed By: #### 2 [id number] #### [facility] [address] [place] [id number] Magnesiumon 04-14-2025 Magnesium [Mass/Vol] 2.2 mg/dL Normal 1.3-2.4 [facility] Comment on above: Performed By: #### 2 [id number] #### [facility] [address] [place] [address] No Panel InformationOrdered By: [facility] on 04-14-2025 Blood Culture Charcoal No growth at 4 days. Final to follow at 7 days. [facility] Blood Culture Charcoal No growth at 4 days. Final to follow at 7 days. [facility] PT & PTTon 04-14-2025 INR Coag (PPP) [Relative time] 0.98 {INR} Invalid Interpretation Code [facility] Comment on above: Result Comment: INR results are specifically intended to assess patients stabilized on long-term Anticoagulation therapy suggested INR???s ???Less Intensive Anticoagulation??? 2.0 ??? 3.0 Conventional Range 3.0 ??? 4.5 Performed By: #### 1 [id number] #### [facility] [address] [place] [address] PT 11.0 second(s) Normal 9.4-12.5 [facility] Comment on above: Result Comment: 15 d [...] the same coagulation reagent and instrumentation as [facility]. Currently there are no coagulation studies available worldwide for children to 14 days, and no normal ranges. Performed By: #### 1 [id number] #### [facility] [address] [place] [address] PTT 33.3 second(s) Normal 25.1-36.5 [facility] Comment on above: Result Comment: Para meter [...] the same coagulation reagent and instrumentation as [facility] Currently there are no coagulation studies available worldwide for children to 14 days, and no normal ranges. Heparin therapeutic range (represented by Anti-Factor Xa activity of 0.2 - 0.4 U/mL) corresponds to PTT of 56.6 - 109.0 sec. Performed By: #### 1 [id number] #### [facility] [address] [place] [address] Pre-Arrival Noteon Pre-Arrival Note Pre-Arrival Note Pre-Arrival Summary Name: , [facility] Current Date: 04/14/2025 16:54:02 EDT Gender: Male Date of : Age: 85 Pre-Arrival Type: EMS ETA: 04/14/2025 17:17:00 EDT Primary Care Physician: Presenting Problem: Pre-Arrival User: Abdoul Mcmillan Referring Source: Location: [place] Completion Date/Time: 04/14/2025 16:47:00 [facility] Emergency Department Pre-Hospital Report Form Vital Signs: Pre-Hospital Report: Treatment in Route: Response to Treatment: Misc. Issues: Normal [facility] Procalcitoninon 04-14-2025 Procalcitonin .06 ng/mL Normal .00-.50 [facility] Comment on above: Result Comment: <0.5 [...] to 24 hours. Performed By: #### 2 [id number] #### [facility] [address] [place] [address] Troponin 0 Hr.on 04-14-2025 Troponin HS 18.30 pg/mL Normal 15.90-38.40 [facility] Comment on above: Result Comment: The 95% CI (Confidence Interval) PPV (Positive Predictive Value) for myocardial infarction in females is 38 pg/mL, in males 51 pg/mL. The results should be used in conjunction with clinical conditions of myocardial infarction. (Access High Sensitivity Troponin I Instructions For Use, Roxane Lemmon, June 2018) Performed By: #### 1 [id number] #### [facility] [address] [place] [address] UA with Cult Rflxon 04-14-20 25 UA Spec Desc Clean Catch Normal [facility] Comment on above: Performed By: #### 4 [id number] #### [facility] [address] [place] [address] XR Chest Single Viewon 04-14 XR Chest [...] DO Transcribed by: MARII Technologist: ADÁN Normal [facility] eGFRon 04-14-2025 eGFR 36 mL/min/1.73 m2 Low >=[address] [facility] Comment on above: Performed By: #### 1 [id number] #### [facility] [address] [place] [address] Office Visiton 03-12-2025 Follow-up visit [id number] Nadir Beth 1940 M Date Provider Department Center 03/12/2025 CLARIBEL VILLALOBOS [facility] Alberto Hos Family History Problem Relation Age of Onset Coronary artery disease Father Family Status - Relation Status Age at Father Level of Service:07461 MS OFFICE/OUTPATIENT ESTABLISHED HIGH MDM 40 MIN Normal [facility] 02-28-2025 -- Attestation signed by Albaro Faulkner MD at 03/01/2025 6:06 PM I personally saw and examined the patient on the same date of service as resident/fellow Dr chilel. I discussed the findings and therapeutic plan with the resident/fellow Dr chilel. I agree with the documentation, except for any edits/updates below. Teaching Physician's Revisions: None Albaro Faulkner MD, [facility] History Of Present Illness Nadir Beth is a 85 y.o. male presenting with aortic stoneosis for MARK. Past Medical History He has a past medical history of Atrial fibrillation ([facility]), CHF (congestive heart failure) ([facility]), Chronic kidney disease, COPD (chronic obstructive pulmonary disease) ([facility]), Coronary artery disease, Diabetes mellitus ([facility]), Heart valve disease, Hypertension, Pericardial effusion, [...] Father Allergies Iodinated contrast media, Nitroglycerin, and Qwayyaq-sfi-sts reductase inhibitors Medications (Not in a hospital [...] Imaging Results Transesophageal echo (MARK) Addendum: [facility] Heart Station [address] [place] [address] [phone] (fax) Transesophageal Echocardiogram-[facility] Name: NADIR BETH Study Date: 08/31/2023 02:31 PM B/P: 190 mmHg/86 mmHg HR: 92 bpm Date of : 1940 Location: [facility] Height: 71 in. Age: 83 year(s) Patient Room: Weight: 210 lb. Gender: Male Patient Status: OutPt BSA: 2.15 m2 Indication: Aortic Valve Stenosis Examination: MARK/Limited Doppler/CFI Image Quality: Excellent Patient Consent: Informed, written consent was obtained for the procedure Exam Location: A MARK was performed in the [employer]rom[employer] without complications Anesthesia Pharyngeal anesthesia with viscous Lidocaine Conclusions Left Ventricle: Global left ventricular systolic function is hyperdynamic. EF range is estimated at 65 % -70 %. No regional wall motion abnormality. Right Ventricle: The right ventricle appears normal in size. Normal right kari (more content not included)... Normal [facility] NURSNOTEon 02-28-2025 NURSNOTE Bedside swallow stud y [...] of unit with all of belongings. Normal [facility] Telephoneon 02-21-2025 Telephone [id number] Nadir Beth 1940 M Date Provider Department Center 02/21/2025 RABIA KONG [facility] AL HeartVAS Family History Problem Relation Age of Onset Coronary artery disease Father Family Status - Relation Status Age at Father Normal [facility] Follow-Upon 01-03-2025 Follow-Up [id number] Nadir Beth 1940 M Date Provider Department Center 01/03/2025 Salvador-RUTHIE LINDA [facility] NEPHRO Comprehensiv Family History Problem Relation Age of Onset Coronary artery disease Father Family Status - Relation Status Age at Father Level of Service:69836 MS OFFICE/OUTPATIENT ESTABLISHED MOD MDM 30 MIN () Reason for Visit and Comments: Follow-up [159939] [facility] Office Visiton 12-14-2024 Follow-up visit [id number] Nadir Beth 1940 M Date Provider Department Center 12/14/2024 CLARIBEL VILLALOBOS MILKA Beckett Family History Problem Relation Age of Onset Coronary artery disease Father Family Status - Relation Status Age at Father Level of Service:66760 MS OFFICE/OUTPATIENT ESTABLISHED MOD MDM 30 MIN [facility] Ambulatory Visit Summaryon 0 12-04-2024 Ambulatory [...] This Is Your Medications List acetaminophen-hydrocod one (Atlanta 325 mg-5 mg oral tablet) ciprofloxacin (Cipro [...] HENDERSON, LU Sweet Where: [facility] [address] [address]- You Need to Schedule the Following Appointments Follow Up with ADRIAN GUSTAFSON, ADAN CHO When: In 6 months Comments: Can see DIAMANTE, w/PVR Where: Medications What How Much When Why Instructions Unchanged acetaminophen-hydrocod one (Atlanta 325 mg-5 mg oral tablet) 1 Tablets [...] concerns Uncha (more content not included)... Normal [facility] Urology Office/Clinic Noteon 12-04-2024 Urology Office/Clinic [...] out of his penis. Pt presented to [facility] ER 10/28/24 due to clot retention. Seen [...] 7. 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) Pt presented to [facility] ER 08/06/24 with redness on the shaft [...] penis. -Cont symptomatic monitoring 8. 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 Hx of cardioversion. Increased risk for bleeding. Elevated r (more content not included)... Normal [facility] Comment on above: Result [...] Is Your Medications List NIFEdipine acetaminophen-hydrocod one (Atlanta 325 mg-5 mg oral tablet) acyclovir apixaban [...] MARQUIS LOUISE MD Where: [facility] [place] [address], [address] [place] [address]- Medications What How Much When Why Instructions Unchanged acetaminophen-hydrocod one (Atlanta 325 mg-5 mg oral tablet) 1 Tablets [...] survey v (more content not included)... Normal [facility] Ambulatory Visit Summaryon 1 01-03-2024 Ambulatory Visit Summary Ambulatory Visit Summary ZOEYNADIR SULLIVAN Joy :1940 Visit Date:11/02/2024 Ambulatory Visit Instructions Your Diagnosis BPH with urinary obstruction Gross hematuria Incomplete bladder emptying OAB (overactive bladder) Acquired buried penis Balanitis Anticoagulated Your Care Team Attending Physician - ADRIAN GUSTAFSON, MARQUIS Primary Care Physician - Van Youssef MD This Is Your Medications List acetaminophen-hydrocod one (Atlanta 325 mg-5 mg oral tablet) ciprofloxacin (Cipro [...] AM EST With: Where: [facility] [address] [place] [address] [place] [address]- Wednesday 8:40 AM EST With: MARQUIS LOUISE MD Where: [facility] [address], [address] [place] [address]- You Need to Schedule the Following Appointments Follow Up with MARQUIS LOUISE MD, URL When: Where: Medications What How Much When Why Instructions Unchanged acetaminophen-hydrocod one (Atlanta 325 mg-5 mg oral tablet) 1 Tablets [...] or co (more content not included)... Normal [facility] Urology Office/Clinic Noteon 11-02-2024 Urology Office/Clinic Note Urology Office/Clinic Note Chief Complaint er f/u HPI Staff 84 year old male here for [facility] ER F/U, difficulty urinating. Bladder scan showed [...] with voice recognition artificial intelligence software, specifically [employer], [employer] and or [employer]. Substitutions may have occurred due to the [...] out of his penis. Pt presented to [facility] ER 10/28/24 due to clot retention. Seen [...] 6. 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) Pt presented to [facility] ER 08/06/24 with redness on the shaft [...] penis. -Cont symptomatic monitoring 7. Anticoagulated (Z79.01: alf (current) use of anticoagulants) Taking Eliquis, has restarted since UroLift. Hx of cardioversion. Increased risk for bleeding. Elevated risk for periop complications. Patient underwent a UroLift procedure approximately a week and a half ago. Unfortunately, he developed gross hematuria with clot retention that required hand irrigation with a three-way Palomares catheter. He presents today for an (more content not included)... Normal [facility] Comment on above: Result [...] Is Your Medications List NIFEdipine acetaminophen-hydrocod one (Atlanta 325 mg-5 mg oral tablet) acyclovir apixaban [...] MARQUIS LOUISE MD Where: [facility] [address], [address] [place] [address]- Medications What How Much When Why Instructions Unchanged acetaminophen-hydrocod one (Atlanta 325 mg-5 mg oral tablet) 1 Tablets [...] emptying Naus (more content not included)... Normal [facility] Inpatient Patient Summaryon 10-23-2024 Inpatient Patient Summary Inpatient Patient Summary [address] [address] Clinical Summary Person Information Name: NADIR BETH Age: 84 Years : 1940 Sex: Male PCP: Van Youssef MD Marital Status: Race: White Ethnicity: Non- or Language: Pakistani Visit Id: Visit Reason: BPH WITH URINARY OBSTRUCTION, INCOMPLETE BLADDER EMPTYING Speciality: Acuity: Enc Type: Outpatient Med Service: Surgery Arrival: 10/23/2024 13:48:15 Discharge: Dispo Type: Address: [address] [place] [phone] Provider Notes: Diagnosis: Problems Active BPH with [...] This Visit Final Med List: acetaminophen-hydrocod one (Atlanta 325 mg-5 mg oral tablet) 1 Tablets [...] Patient Education Information: Benign Prostatic Hyperplasia Normal [facility] Main OR Intraoperative Recor don 10-23-2024 Main OR Intraoperative Record Main OR Intraoperative Record IntraOp Document Type FTURO Summary Primary Physician: MARQUIS LOUISE MD Finalized Date/Time: 10/23/24 15:03:19 Pt. Name: NADIR BETH Joy Borja/Sex: 1940 Male Med Rec #: [id number] Physician: MARQUIS LOUISE MD Financial #: [id number] Pt. Type: O Room/Bed: / Admit/Disch: 10/23/24 [...] 3 Case Attendee ADRIAN GUSTAFSON, Oliva Goel COLLABORATING SUPERVISING PHYSICIAN, Ana CHO Role Performed Surgeon - Primary Sports Physiologist - Primary Scrub - Primary Time In [...] Implant Implant Identification Description UROLIFT Lot Number [id number] Vp Cardiovascular Service Line UROLIFT Catalog ???# [id number] Expiration Date 11/30/25 [...] Oliva Goel (more content not included)... Normal [facility] Main OR Preoperative Recordo n 10-23-2024 Main OR Preoperative Record Main OR Preoperative Record Holding Area Document Type FTURO Summary Primary Physician: MARQUIS LOUISE MD Finalized Date/Time: 10/23/24 14:17:30 Pt. Name: NADIR BETH/Sex: 1940 Male Med Rec #: [id number] Physician: MARQUIS LOUISE MD Financial #: [id number] Pt. Type: O Room/Bed: / Admit/Disch: 10/23/24 [...] Complaints of Pain: No Skin Integrity Intact, [place], Warm, & Dry Vitals - EU Blood Pressure 152/78 Pulse 84 bpm Respirations 18 br/min SPO2 90 % Additional None RN Reviewed Yes Specimens Collected Last Modified By: Oliva Goel 10/23/24 14:17:29 Finalized By: Oliva Goel Document Signatures Signed By: Preeti Kaur LPN 10/23/24 14:05 Oliva Goel 10/23/24 14:[address] [facility] Operative Reporton 4 Operative Report Operative [...] urethral meatus. We then placed the 20 [place] cystoscope into the bladder. Bilobar hyperplasia was [...] able to easily navigate with a 20 [place] scope. Scope was then removed and an 18 [place] Palomares catheter was placed with return of light pink urine and no clots noted. This concluded the procedure. Patient was then transferred to PACU in stable condition. PLAN: Patient will follow-up in 2 days for Palomares catheter removal. 10 cc in the balloon Follow-up in 6 to 8 weeks with IPSS at that time Normal [facility] Comment on above: Result Comment: Elec tronically Signed By: MARQUIS LOUISE MD\.br\Date and Time Signed: 10/23/24 15:06 EST Outpatient Surgery Discharge Instructionon 10-23-2024 Outpatient Surgery Discharge Instruction Outpatient Surgery Discharge Instruction [place] [id number] Patient Discharge Instructions PERSON INFORMATION Name: NADIR [...] amount of (more content not included)... Normal [facility] Ambulatory Visit Summaryon 1 12-02-2023 Ambulatory [...] Survey Yo (more content not included)... Normal [facility] Ambulatory Visit Summary Ambulatory Visit Summary [...] us for (more content not included)... Normal [facility] Urology Office/Clinic Noteon 10-02-2024 Urology Office/Clinic [...] with voice recognition artificial intelligence software, specifically [employer], [employer] and or [employer]. Substitutions may have occurred due to the [...] -Cipro 500mg bid start the day prior, Atlanta 325-5mg #2 q6hrs as needed for pain, [...] 3. 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) Pt presented to [facility] ER 08/06/24 with redness on the shaft [...] and Lasix. -Dm control 6. Anticoagulated (Z79.01: alf (current) use of anticoagulants) Taking Eliquis. Hx of cardioversion. Elevated risk for periop complications. Based on patient's age, multiple medical comorbidities and his prostate size we discussed extensively that he will benefit most likely from a UroLift procedure. He is amenable to (more content not included)... Normal [facility] Comment on above: Result Comment: Elec tronically Signed By: MARQUIS LOUISE MD\.br\Date and Time Signed: 10/02/24 11:43 EST\.br\Electronically Co-Signed By: Roxy Gatica\.br\Date and Time Co-Signed: 10/02/24 11:21 EST\.br\Electronically Co-Signed By: Roxy Gatica\.br\Date and Time Co-Signed: 10/02/24 11:22 EST\.br\Electronically Co-Signed By: Roxy Gatica\.br\Date and Time Co-Signed: 10/02/24 11:23 EST Inpatient Patient Summaryon 09-25-2024 Inpatient Patient Summary Inpatient Patient Summary [address] [address] Clinical Summary Person Information Name: NADIR BETH Age: 84 Years : 1940 Sex: Male PCP: Van Youssef MD Marital Status: Race: White Ethnicity: Non- or Language: Pakistani Visit Id: Visit Reason: ENLARGED PROSTATE WITH URINARY OBSTRUCTION, INCOMPLETE BLADDER EMPTYING Speciality: Acuity: Enc Type: Outpatient Med Service: Surgery Arrival: 09/25/2024 11:42:27 Discharge: Dispo Type: Address: [address] [place] [phone] Provider Notes: Diagnosis: Problems Active BPH with [...] Follow up: With: Address: When: MARQUIS LOUISE [address] [place] [address] [phone] Business (1) Comments: Follow-up in the office in 2 weeks to discuss next plan With: Address: When: MARQUIS LOUISE [address] [place] [address] [phone] Business (1) Patient Education Information: Benign Prostatic Hyperplasia Normal [facility] Main OR Intraoperative Recor don 09-25-2024 Main OR Intraoperative Record Main OR Intraoperative Record IntraOp Document Type FTURO Summary Primary Physician: MARQUIS LOUISE MD Finalized Date/Time: 09/25/24 13:23:58 Pt. Name: SHAHBAZNADIR STEPHEN /Sex: 1940 Male Med Rec #: [id number] Physician: MARQUIS LOUISE MD Financial #: [id number] Pt. Type: O Room/Bed: / Admit/Disch: 09/25/24 [...] C KWABENA Role Performed Surgeon - Primary Sports Physiologist - Primary Scrub - Primary Time In [...] Goel 09/25/24 13:23 Oliva Goel 09/25/24 13:23 [facility] Main OR Preoperative Recordo n 09-25-2024 Main OR Preoperative Record Main OR Preoperative Record Holding Area Document Type FTURO Summary Primary Physician: MARQUIS LOUISE MD Finalized Date/Time: 09/25/24 13:04:51 Pt. Name: KIRITNADIR/Sex: 1940 Male Med Rec #: [id number] Physician: MARQUIS LOUISE MD Financial #: [id number] Pt. Type: O Room/Bed: / Admit/Disch: 09/25/24 [...] Complaints of Pain: No Skin Integrity Intact, [place], Warm, & Dry Vitals - EU Blood Pressure Pulse Respirations SPO2 Additional None RN Reviewed Yes Specimens Collected Last Modified By: Oliva Goel 09/25/24 13:04:50 Finalized By: Oliva Goel Document Signatures Signed By: Preeti Kaur LPN 09/25/24 12:49 Oliva Goel 09/25/24 13:[address] [facility] Operative Reporton Operative Report Operative Report [...] steps Impression and Plan Counseled: Family. Normal [facility] Comment on above: Result Comment: Elec tronically Signed By: MARQUIS LOUISE MD\.br\Date and Time Signed: 09/25/24 13:27 EST Outpatient Surgery Discharge Instructionon 09-25-2024 Outpatient Surgery Discharge Instruction Outpatient Surgery Discharge Instruction [address] [address] Patient Discharge Instructions PERSON INFORMATION [...] Address: When: MARQUIS LOUISE [address] [place] [address] [phone] [employer] (1) Comments: Follow-up in the office in 2 weeks to discuss next plan With: Address: When: MARQUIS LOUISE [address] [place] [address] [phone] [employer] (1) Comment: PATIENT EDUCATION INFORMATION Instructions: Benign [...] radio frequen (more content not included)... Normal [facility] No Panel Informationon 08-24 [facility] Ambulatory Visit Summaryon 0 08-08-2024 [...] 525 mg (more content not included)... Normal [facility] Urology Office/Clinic Noteon 08-08-2024 Urology Office/Clinic Note Urology Office/Clinic Note Chief Complaint follow up to [facility] HPI Staff 84 year old male new patient follow up to [facility] 08/06/24 presented due to redness on the [...] 1. 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) Pt presented to [facility] 08/06/24 with redness on the shaft [...] content not included)... Normal [facility] Comment on above: Result Comment: Elec tronically Signed By: MARQUIS LOUISE MD\.br\Date and Time Signed: 08/08/24 11:05 EDT\.br\Electronically Co-Signed By: Roxy Gatica.br\Date and Time Co-Signed: 08/08/24 10:46 EDT\.br\Electronically Co-Signed By: Roxy Gatica.mary\Date and Time Co-Signed: 08/08/24 10:53 EDT Office Visiton 07-05-2024 Follow-up visit [id number] Nadir Beth 1940 M Date Provider Department Center 07/05/2024 Salvador-AKHIOK RUTHIE [facility] NEPHRO Comprehensiv Family History Problem Relation Age of Onset Coronary artery disease Father Family Status - Relation Status Age at Father Level of Service:02874 MS OFFICE/OUTPATIENT ESTABLISHED MOD MDM 30 MIN Reason for Visit and Comments: Follow-up [122332] [facility] 06-20-2024 36 Regarding echo resul t [...] her he should have another echo at [facility] in Oct 2024, prior to his follow up with Dr. Cisneros in Nov 2024. She verbalized understanding. Echo order faxed to [facility]. [facility] 06-14-2024 36 Patients called and stating that dr. Linda told her to call and let him know that her husbands blood pressure is better and she would like a call back. [facility] 06-09-2024 36 Spoke with patient's Kervin and made sure she understood to increase labetalol per Dr. Linda. She also understands not to resume hydralazine. [facility] 06-07-2024 36 I'm Stephanie from Dr. Cisneros's office with Cardiology. Patient's daughter called and wanted to know if Dr. Linda had restarted patient's hydralazine- NOT hydroxyzine. I don't see in the note that it was restarted. Dr. Linda, or someone from his office- can you clarify this for me? Thanks so much. [facility] Follow-Upon 06-07-2024 Follow-Up [id number] Nadir Beth 1940 M Date Provider Department Center 06/07/2024 Salvador-RUTHIE LINDA [facility] NEPHRO Comprehensiv Family History Problem Relation Age of Onset Coronary artery disease Father Family Status - Relation Status Age at Father Level of Service:85150 MS OFFICE/OUTPATIENT ESTABLISHED MOD MDM 30 MIN () Reason for Visit and Comments: Follow-up [022130] [facility] Telephoneon 06-07-2024 Telephone [id number] Nadir Beth 1940 M Date Provider Department Center 06/07/2024 Francisco-IRIS GUADALUPE [facility] NEPHRO Comprehensiv Family History Problem Relation Age of Onset Coronary artery disease Father Family Status - Relation Status Age at Father [facility] Office Visiton 06-05-2024 Follow-up visit [id number] Steen 1940 M Date Provider Department Center 06/05/2024 Parris-CLARIBEL CISNEROS [facility] Family History Problem Relation Age of Onset Coronary artery disease Father Family Status - Relation Status Age at Father Level of Service:77260 MS OFFICE/OUTPATIENT ESTABLISHED MOD MDM 30 MIN [facility] 05-17-2024 36 Faxed lab orders 05/17/24 [facility] 05-15-2024 36 Patient states that he needs his blood work to [facility] before his appointment on 05/31/24. [facility] 05-10-2024 36 LM on for patient or his to return my call. [facility] 05-08-2024 36 Patient's bucio louise with concerns of elevated BP since hydralazine was stopped at last apt. She said sometimes it's very good - 110/60's and sometimes 152/70. He's scheduled to see you in a few weeks. Did you want to change anything? Please advise. Thanks. Normal [facility] MICRO OTHER TESTSOrdered By: Francisco Bolanos on 04-15-2023 Fecal WBC Lactoferrin Negative (04/15/23 7:00 AM) Normal Negative [facility] Man Sero CHEMISTRYOrdered By: SYSTEM [...] 3.3 g/dL Critically low 3.4-5.0 Th e [facility] Comment on above: Performed By: #### M ERICK Faith PHOS #### [facility] [address] [address] [address] David Magana GLYCOHEMOGLOBIN A1Con 2022 ADA RECOMMENDATION SEE BELOW Normal [facility] Comment on above: Result Comment: ADA RECOMMENDED LIMIT 4.0 - 6.0 ADA THERAPEUTIC TARGET < 7.0 ACTION SUGGESTED > 7.0 Performed By: #### A 1C #### [facility] [address] [address] [address] David Magana Glucose [Mass/Vol] 108 mg/dL Normal [facility] Comment on above: Performed By: #### A 1C #### [facility] [address] [place] [address] Dr. David Magana HbA1c (Bld) [Mass fraction] 5.4 % Normal 4.5-6.2 [facility] Comment on above: Performed By: #### A 1C #### [facility] [address] [place] [address] Dr. David Magana PHOSPHORUSon 03-24-2023 Phosphate [Mass/Vol] 3.6 mg/dL Normal 2.6-4.7 [facility] Comment on above: Performed By: #### M Marcell BMP, PHOS #### [facility] [address] [place] [address] Dr. David Magana PROF CHEM 8 (BAS METB)on Anion gap [Moles/Vol] 11.6 mmol/L Normal [facility] Comment on above: Performed By: #### M Marcell BMP, PHOS #### [facility] [address] [place] [address] Dr. David Magana Calcium [Mass/Vol] 8.9 mg/dL Normal 8.5-10.1 [facility] Comment on above: Performed By: #### M Marcell BMP, PHOS #### [facility] [address] [place] [address] Dr. David Magana Chloride [Moles/Vol] 107 mmol/L Normal 98-107 [facility] Comment on above: Performed By: #### M Marcell BMP, PHOS #### [facility] [address] [place] [address] Dr. David Magnaa CO2 [Moles/Vol] 30.8 mmol/L Normal 21.0-32.0 [facility] Comment on above: Performed By: #### M Marcell, BMP, PHOS #### [facility] [address] [place] [address] Dr. David Magana Creatinine [Mass/Vol] 1.67 mg/dL Critically high 0.70-1.30 [facility] Comment on above: Performed By: #### M Marcell BMP, PHOS #### [facility] [address] [place] [address] Dr. David Magana EGFR-AF BERMUDIAN 48 mL/min/1.73m2 Critically low >=60 [facility] Comment on above: Performed By: #### M Marcell, BMP, PHOS #### [facility] [address] [address] [address] David Magana EGFR-NON AF BERMUDIAN 39 mL/min/1.73m2 Critically low >=60 [facility] Comment on above: Performed By: #### M ERICK Faith, PHOS #### [facility] [address] [address] [address] David Magana Glucose [Mass/Vol] 128 mg/dL Critically high 74-106 [facility] Comment on above: Performed By: #### M Marcell, BMP, PHOS #### [facility] [address] [address] [address] David Magana Potassium [Moles/Vol] 4.4 mmol/L Normal 3.5-5.1 [facility] Comment on above: Performed By: #### M Marcell BMP, PHOS #### [facility] [address] [place] [address] Dr. David Magana Sodium [Moles/Vol] 145 mmol/L Normal 136-145 [facility] Comment on above: Performed By: #### M Marcell BMP, PHOS #### [facility] [address] [address] [address] David Magana Urea nitrogen [Mass/Vol] 25.0 mg/dL Critically high 7.0-18.0 [facility] Comment on above: Performed By: #### ERICK Jacques, PHOS #### [facility] [address] [address] [address] David Magana Urea nitrogen/Creatinine [Mass ratio] 15.0 mg/mg Normal [facility] Comment on above: Performed By: #### M Marcell, BMP, PHOS #### [facility] [address] [address] [address] David Magana VITAMIN D 25 OHon 03-24-2023 VIT D 25-OH 11.6 ng/mL Normal [facility] Comment on above: Performed By: #### C BC #### [facility] [address] [place] [address] Dr. David Magana VIT D RANGES SEE BELOW Normal [facility] Comment on above: Result Comment: <20 ng/mL Vit D deficient 20 - <30 ng/mL Vit D insufficient 30 - 100 ng/mL Vit D sufficient >100 ng/mL Potential Toxicity Performed By: #### C BC #### [facility] [address] [place] [address] Dr. David Magana CBC AUTO DIFFon 02-27-2023 BASO # 0.0 103/ul Normal 0.0-0.1 [facility] Comment on above: Performed By: #### M ERICK Faith, PHOS #### [facility] [address] [place] [address] Dr. David Magana Basophils/100 WBC (Bld) 0.5 % Normal 0.2-2.0 [facility] Comment on above: Performed By: #### M ERICK Faith, PHOS #### [facility] [address] [place] [address] Dr. David Magana EO # 0.7 103/ul Normal 0.0-0.7 [facility] Comment on above: Performed By: #### M ERICK Faith, PHOS #### [facility] [address] [place] [address] Dr. David Magana Eosinophils/100 WBC (Bld) 9.3 % Critically high 0.9-7.0 [facility] Comment on above: Performed By: #### M ERICK Faith, PHOS #### [facility] [address] [place] [address] Dr. David Magana Erythrocyte distribution width (RBC) [Ratio] 14.6 % Normal 11.0-15.0 [facility] Comment on above: Performed By: #### M ERICK Faith, PHOS #### [facility] [address] [place] [address] Dr. David Magana Hematocrit (Bld) [Volume fraction] 41.5 % Critically low 42.0-54.0 [facility] Comment on above: Performed By: #### M ERICK Faith, PHOS #### [facility] [address] [place] [address] Dr. David Magana Hemoglobin (Bld) [Mass/Vol] 13.9 g/dL Critically low 14.0-18.0 [facility] Comment on above: Performed By: #### M ERICK Faith, PHOS #### [facility] [address] [place] [address] Dr. David Magana IG # 0.02 10e3/ul Normal 0.00-0.03 [facility] Comment on above: Performed By: #### M Marcell BMP, PHOS #### [facility] [address] [place] [address] Dr. David Magana IG % 0.3 % Normal 0.0-0.5 [facility] Comment on above: Performed By: #### ERICK Jacques, PHOS #### [facility] [address] [place] [address] Dr. David Magana LYMPH # 1.0 103/ul Critically low 1.2-3.8 [facility] Comment on above: Performed By: #### ERICK Jacques, PHOS #### [facility] [address] [place] [address] Dr. David Magana Lymphocytes/100 WBC (Bld) 13.0 % Critically low 20.5-60.0 [facility] Comment on above: Performed By: #### ERICK Jacques, PHOS #### [facility] [address] [place] [address] Dr. David Magana MANUAL DIFF REQ NO Normal [facility] Comment on above: Performed By: #### M ERICK Faith, PHOS #### [facility] [address] [place] [address] Dr. David Magana MCH (RBC) [Entitic mass] 33.5 pg Normal 25.9-34.0 [facility] Comment on above: Performed By: #### M ERICK Faith, PHOS #### [facility] [address] [place] [address] Dr. David Magana MCHC (RBC) [Mass/Vol] 33.5 g/dL Normal 29.9-35.2 [facility] Comment on above: Performed By: #### ERICK Jacques, PHOS #### [facility] [address] [place], [place] [id number] Dr. David Magana MCV (RBC) [Entitic vol] 100.0 fL Critically high 80.0-94.0 [facility] Comment on above: Performed By: #### M ERICK Faith, PHOS #### [facility] [address] [place] [address] Dr. David Magana MONO # 0.8 103/ul Normal 0.3-0.8 [facility] Comment on above: Performed By: #### M ERICK Faith, PHOS #### [facility] [address] [place] [address] Dr. David Magana Monocytes/100 WBC (Bld) 10.1 % Normal 1.7-12.0 [facility] Comment on above: Performed By: #### M ERICK Faith, PHOS #### [facility] [address] [place] [address] Dr. David Magana NEUT # 5.0 103/ul Normal 1.4-6.5 [facility] Comment on above: Performed By: #### M ERICK Faith, PHOS #### [facility] [address] [place] [address] Dr. David Magana Neutrophils/100 WBC (Bld) 66.8 % Normal 43.0-75.0 [facility] Comment on above: Performed By: #### M ERICK Faith, PHOS #### [facility] [address] [place] [address] Dr. David Magana Platelet mean volume (Bld) [Entitic vol] 11.2 fL Normal 9.5-13.5 [facility] Comment on above: Performed By: #### M ERICK Faith, PHOS #### [facility] [address] [place] [address] Dr. David Magana PLT 187 103/ul Normal 150-450 [facility] Comment on above: Performed By: #### M Marcell BMP, PHOS #### [facility] [address] [place] [address] Dr. David Magana RBC 4.15 106/ul Critically low 4.70-6.10 [facility] Comment on above: Performed By: #### M ERICK Faith, PHOS #### [facility] [address] [place] [address] Dr. David Magana WBC 7.5 103/ul Normal 4.0-11.0 [facility] Comment on above: Performed By: #### M ERICK Faith, PHOS #### [facility] [address] [place] [address] Dr. David Magana PROF 14(COMP METB)on 023 Albumin [Mass/Vol] 3.5 g/dL Normal 3.4-5.0 [facility] Comment on above: Performed By: #### A 1C #### [facility] [address] [place] [address] Dr. David Magana Albumin/Globulin [Mass ratio] 1.1 {ratio} Normal [facility] Comment on above: Performed By: #### A 1C #### [facility] [address] [place] [address] Dr. David Magana ALP [Catalytic activity/Vol] 76 U/L Normal 46-116 [facility] Comment on above: Performed By: #### A 1C #### [facility] [address] [place] [address] Dr. David Magana ALT [Catalytic activity/Vol] 23 U/L Normal 16-63 [facility] Comment on above: Performed By: #### A 1C #### [facility] [address] [place] [address] Dr. David Magana Anion gap [Moles/Vol] 13.1 mmol/L Normal [facility] Comment on above: Performed By: #### A 1C #### [facility] [address] [place] [address] Dr. David Magana AST [Catalytic activity/Vol] 17 U/L Normal 15-37 [facility] Comment on above: Performed By: #### A 1C #### [facility] [address] [place] [address] Dr. David Magana Bilirubin [Mass/Vol] 0.7 mg/dL Normal 0.2-1.0 [facility] Comment on above: Performed By: #### A 1C #### [facility] [address] [address] [address] David Magana Calcium [Mass/Vol] 9.0 mg/dL Normal 8.5-10.1 [facility] Comment on above: Performed By: #### A 1C #### [facility] [address] [address] [address] David Magana Chloride [Moles/Vol] 105 mmol/L Normal 98-107 [facility] Comment on above: Performed By: #### A 1C #### [facility] [address] [address] [address] David Magana CO2 [Moles/Vol] 29.0 mmol/L Normal 21.0-32.0 [facility] Comment on above: Performed By: #### A 1C #### [facility] [address] [place] [address] Dr. David Magana Creatinine [Mass/Vol] 1.77 mg/dL Critically high 0.70-1.30 [facility] Comment on above: Performed By: #### A 1C #### [facility] [address] [address] [address] David Magana EGFR-AF BERMUDIAN 45 mL/min/1.73m2 Critically low >=60 [facility] Comment on above: Performed By: #### A 1C #### [facility] [address] [address] [address] David Magana EGFR-NON AF BERMUDIAN 37 mL/min/1.73m2 Critically low >=60 [facility] Comment on above: Performed By: #### A 1C #### [facility] [address] [address] [address] David Magana Globulin (S) [Mass/Vol] 3.3 g/dL Normal [facility] Comment on above: Performed By: #### A 1C #### [facility] [address] [address] [address] David Magana Glucose [Mass/Vol] 135 mg/dL Critically high 74-106 [facility] Comment on above: Performed By: #### A 1C #### [facility] [address] [address] [address] David Magana Potassium [Moles/Vol] 4.1 mmol/L Normal 3.5-5.1 [facility] Comment on above: Performed By: #### A 1C #### [facility] [address] [address] [address] David Magana Protein [Mass/Vol] 6.8 g/dL Normal 6.4-8.2 [facility] Comment on above: Performed By: #### A 1C #### [facility] [address] [address] [address] David Magana Sodium [Moles/Vol] 143 mmol/L Normal 136-145 [facility] Comment on above: Performed By: #### A 1C #### [facility] [address] [address] [address] David Magana Urea nitrogen [Mass/Vol] 31.0 mg/dL Critically high 7.0-18.0 [facility] Comment on above: Performed By: #### A 1C #### [facility] [address] [address] [address] David Magana Urea nitrogen/Creatinine [Mass ratio] 17.5 mg/mg Normal [facility] Comment on above: Performed By: #### A 1C #### [facility] [address] [address] [address] David Magana PROTIMEon 02-27-2023 INR Coag (PPP) [Relative time] 0.99 {INR} Normal [facility] Comment on above: Performed By: #### A 1C #### [facility] [address] [address] [address] David Magana INR GUIDELINES SEE BELOW Normal [facility] Comment on above: Result Comment: IDANIA RED INR: 2.0 - 3.0 CONDITIONS NOT LISTED BELOW 2.5 - 3.5 FOR PROSTHETIC HEART VALVE REPLACEMENT 2.5 - 3.5 RECURRENT THROMBOSIS Performed By: #### A 1C #### [facility] [address] [address] [address] David Magana PT Coag (PPP) [Time] 10.5 s Normal 9.0-11.6 [facility] Comment on above: Performed By: #### A 1C #### [facility] [address] [address] [address] David Magana PTTon 02-27-2023 aPTT Coag (Bld) [Time] 33.0 s Normal 22.3-36.2 [facility] Comment on above: Performed By: #### P OCGLUC #### [facility] [address] [address] [address] David Magana ALBUMINon 12-28-2022 Albumin [Mass/Vol] 3.6 g/dL Normal 3.4-5.0 [facility] Comment on above: Performed By: #### C BC #### [facility] [address] [place] [address] Dr. David Magana GLYCOHEMOGLOBIN A1Con 2022 ADA RECOMMENDATION SEE BELOW Normal [facility] Comment on above: Result Comment: ADA RECOMMENDED LIMIT 4.0 - 6.0 ADA THERAPEUTIC TARGET < 7.0 ACTION SUGGESTED > 7.0 Performed By: #### P OCGLUC #### [facility] [address] [address] [address] David Magana Glucose [Mass/Vol] 140 mg/dL Normal [facility] Comment on above: Performed By: #### P OCGLUC #### [facility] [address] [place] [address] Dr. David Magana HbA1c (Bld) [Mass fraction] 6.5 % Critically high 4.5-6.2 [facility] Comment on above: Performed By: #### P OCGLUC #### [facility] [address] [address] [address] David Magana MAGNESIUMon 12-28-2022 Magnesium [Mass/Vol] 2.3 mg/dL Normal 1.8-2.4 [facility] Comment on above: Performed By: #### P OCGLUC #### [facility] [address] [place] [address] Dr. David Magana PROF CHEM 8 (BAS METB)on Anion gap [Moles/Vol] 13.2 mmol/L Normal [facility] Comment on above: Performed By: #### P OCGLUC #### [facility] [address] [address] [address] aDvid Magana Calcium [Mass/Vol] 9.0 mg/dL Normal 8.5-10.1 [facility] Comment on above: Performed By: #### P OCGLUC #### [facility] [address] [address] [address] David Magana Chloride [Moles/Vol] 105 mmol/L Normal 98-107 [facility] Comment on above: Performed By: #### P OCGLUC #### [facility] [address] [address] [address] David Magana CO2 [Moles/Vol] 28.9 mmol/L Normal 21.0-32.0 [facility] Comment on above: Performed By: #### P OCGLUC #### [facility] [address] [address] [address] David Magana Creatinine [Mass/Vol] 1.66 mg/dL Critically high 0.70-1.30 [facility] Comment on above: Performed By: #### P OCGLUC #### [facility] [address] [place] [address] Dr. David Magana EGFR-AF BERMUDIAN 48 mL/min/1.73m2 Critically low >=60 [facility] Comment on above: Performed By: #### P OCGLUC #### [facility] [address] [address] [address] David Magana EGFR-NON AF BERMUDIAN 40 mL/min/1.73m2 Critically low >=60 [facility] Comment on above: Performed By: #### P OCGLUC #### [facility] [address] [place] [address] Dr. David Magana Glucose [Mass/Vol] 123 mg/dL Critically high 74-106 [facility] Comment on above: Performed By: #### P OCGLUC #### [facility] [address] [place] [address] Dr. David Magana Potassium [Moles/Vol] 4.1 mmol/L Normal 3.5-5.1 [facility] Comment on above: Performed By: #### P OCGLUC #### [facility] [address] [address] [address] David Magana Sodium [Moles/Vol] 143 mmol/L Normal 136-145 [facility] Comment on above: Performed By: #### P OCGLUC #### [facility] [address] [address] [address] David Magana Urea nitrogen [Mass/Vol] 29.0 mg/dL Critically high 7.0-18.0 [facility] Comment on above: Performed By: #### P OCGLUC #### [facility] [address] [place] [address] Dr. David Magana Urea nitrogen/Creatinine [Mass ratio] 17.5 mg/mg Normal [facility] Comment on above: Performed By: #### P OCGLUC #### [facility] [address] [place] [address] Dr. David Magana URINE T PROTEIN CREAT RATIOo n 12-28-2022 UR TOTAL PROTEIN <6.0 Normal <=12.0 [facility] Comment on above: Performed By: #### M EIRCK Faith, PHOS #### [facility] [address] [place] [address] Dr. David Magana URINE CREAT 41.21 mg/dL Normal 20.00-300.00 [facility] Comment on above: Performed By: #### M Marcell BMP, PHOS #### [facility] [address] [place] [address] Dr. David Magana ALBUMINon 11-16-2022 Albumin [Mass/Vol] 3.3 g/dL Critically low 3.4-5.0 [facility] Comment on above: Performed By: #### C BC #### [facility] [address] [place] [address] Dr. David Magana CREATININE URINEon URINE CREAT 19.69 mg/dL Critically low 20.00-300.00 [facility] Comment on above: Performed By: #### M ERICK Faith, PHOS #### [facility] [address] [place] [address] Dr. David Magana HEMOGLOBINon 11-16-2022 Hemoglobin (Bld) [Mass/Vol] 14.9 g/dL Normal 14.0-18.0 [facility] Comment on above: Performed By: #### M ERICK Faith, PHOS #### [facility] [address] [place] [address] Dr. David Magana MAGNESIUMon 11-16-2022 Magnesium [Mass/Vol] 2.2 mg/dL Normal 1.8-2.4 [facility] Comment on above: Performed By: #### C BC #### [facility] [address] [place] [address] Dr. David Magana PHOSPHORUSon 11-16-2022 Phosphate [Mass/Vol] 3.9 mg/dL Normal 2.6-4.7 [facility] Comment on above: Performed By: #### C BC #### [facility] [address] [place] [address] Dr. David Magana PROF CHEM 8 (BAS METB)on Anion gap [Moles/Vol] 11.9 mmol/L Normal [facility] Comment on above: Performed By: #### C BC #### [facility] [address] [place] [address] Dr. David Magana Calcium [Mass/Vol] 8.8 mg/dL Normal 8.5-10.1 [facility] Comment on above: Performed By: #### C BC #### [facility] [address] [place] [address] Dr. David Magana Chloride [Moles/Vol] 104 mmol/L Normal 98-107 [facility] Comment on above: Performed By: #### C BC #### [facility] [address] [place] [address] Dr. David Magana CO2 [Moles/Vol] 27.4 mmol/L Normal 21.0-32.0 [facility] Comment on above: Performed By: #### C BC #### [facility] [address] [address] [address] David Magana Creatinine [Mass/Vol] 1.68 mg/dL Critically high 0.70-1.30 [facility] Comment on above: Performed By: #### C BC #### [facility] [address] [address] [address] David Magana EGFR-AF BERMUDIAN 48 mL/min/1.73m2 Critically low >=60 [facility] Comment on above: Performed By: #### C BC #### [facility] [address] [address] [address] David Magana EGFR-NON AF BERMUDIAN 39 mL/min/1.73m2 Critically low >=60 [facility] Comment on above: Performed By: #### C BC #### [facility] [address] [address] [address] David Magana Glucose [Mass/Vol] 212 mg/dL Critically high 74-106 [facility] Comment on above: Performed By: #### C BC #### [facility] [address] [address] [address] David Magana Potassium [Moles/Vol] 4.3 mmol/L Normal 3.5-5.1 [facility] Comment on above: Performed By: #### C BC #### [facility] [address] [address] [address] David Magana Sodium [Moles/Vol] 139 mmol/L Normal 136-145 [facility] Comment on above: Performed By: #### C BC #### [facility] [address] [address] [address] David Magana Urea nitrogen [Mass/Vol] 25.0 mg/dL Critically high 7.0-18.0 [facility] Comment on above: Performed By: #### C BC #### [facility] [address] [address] [address] David Magana Urea nitrogen/Creatinine [Mass ratio] 14.9 mg/mg Normal [facility] Comment on above: Performed By: #### C BC #### [facility] [address] [place] [address] Dr. David Magana PROTEIN RAND URINEon 023 UR PROT <5.0 Normal <=11.9 [facility] Comment on above: Performed By: #### ERICK Jacques PHOS #### [facility] [address] [place] [address] Dr. David Magana US KARI DOP LEG [...] CLOVER PEREZ Date: 2022-11-02 16:21 Normal [facility] BNPon 07-22-2022 Natriuretic peptide B (Bld) [Mass/Vol] 2143.0 pg/mL Critically high <=1,800.0 [facility] Comment on above: Performed By: #### ERICK Jacques PHOS #### [facility] [address] [place] [address] Dr. David Magana CBC AUTO DIFFon 07-22-2022 BASO # 0.0 103/ul Normal 0.0-0.1 [facility] Comment on above: Performed By: #### A 1C #### [facility] [address] [place] [address] Dr. David Magana Basophils/100 WBC (Bld) 0.3 % Normal 0.2-2.0 [facility] Comment on above: Performed By: #### A 1C #### [facility] [address] [place] [address] Dr. David Magana EO # 0.3 103/ul Normal 0.0-0.7 [facility] Comment on above: Performed By: #### A 1C #### [facility] [address] [place] [address] Dr. David Magana Eosinophils/100 WBC (Bld) 2.4 % Normal 0.9-7.0 [facility] Comment on above: Performed By: #### A 1C #### [facility] [address] [place] [address] Dr. David Magana Erythrocyte distribution width (RBC) [Ratio] 13.4 % Normal 11.0-15.0 [facility] Comment on above: Performed By: #### A 1C #### [facility] [address] [place] [address] Dr. David Magana Hematocrit (Bld) [Volume fraction] 42.7 % Normal 42.0-54.0 [facility] Comment on above: Performed By: #### A 1C #### [facility] [address] [place] [address] Dr. David Magana Hemoglobin (Bld) [Mass/Vol] 14.2 g/dL Normal 14.0-18.0 [facility] Comment on above: Performed By: #### A 1C #### [facility] [address] [place] [address] Dr. David Magana IG # 0.18 10e3/ul Critically high 0.00-0.03 [facility] Comment on above: Performed By: #### A 1C #### [facility] [address] [place] [address] Dr. David Magana IG % 1.6 % Critically high 0.0-0.5 [facility] Comment on above: Performed By: #### A 1C #### [facility] [address] [place] [address] Dr. David Magana LYMPH # 0.9 103/ul Critically low 1.2-3.8 [facility] Comment on above: Performed By: #### A 1C #### [facility] [address] [place] [address] Dr. David Magana Lymphocytes/100 WBC (Bld) 8.1 % Critically low 20.5-60.0 [facility] Comment on above: Performed By: #### A 1C #### [facility] [address] [place] [address] Dr. David Magana MANUAL DIFF REQ NO Normal [facility] Comment on above: Performed By: #### A 1C #### [facility] [address] [place] [address] Dr. David Magana MCH (RBC) [Entitic mass] 33.3 pg Normal 25.9-34.0 [facility] Comment on above: Performed By: #### A 1C #### [facility] [address] [place] [address] Dr. David Magana MCHC (RBC) [Mass/Vol] 33.3 g/dL Normal 29.9-35.2 [facility] Comment on above: Performed By: #### A 1C #### [facility] [address] [place] [address] Dr. David Magana MCV (RBC) [Entitic vol] 100.2 fL Critically high 80.0-94.0 [facility] Comment on above: Performed By: #### A 1C #### [facility] [address] [place] [address] Dr. David Magana MONO # 1.2 103/ul Critically high 0.3-0.8 [facility] Comment on above: Performed By: #### A 1C #### [facility] [address] [place] [address] Dr. David Magana Monocytes/100 WBC (Bld) 10.5 % Normal 1.7-12.0 [facility] Comment on above: Performed By: #### A 1C #### [facility] [address] [place] [address] Dr. David Magana NEUT # 8.9 103/ul Critically high 1.4-6.5 [facility] Comment on above: Performed By: #### A 1C #### [facility] [address] [place] [address] Dr. David Magana Neutrophils/100 WBC (Bld) 77.1 % Critically high 43.0-75.0 [facility] Comment on above: Performed By: #### A 1C #### [facility] [address] [place] [address] Dr. David Magana Platelet mean volume (Bld) [Entitic vol] 11.3 fL Normal 9.5-13.5 [facility] Comment on above: Performed By: #### A 1C #### [facility] [address] [place] [address] Dr. David Magana PLT 175 103/ul Normal 150-450 [facility] Comment on above: Performed By: #### A 1C #### [facility] [address] [place] [address] Dr. David Magana RBC 4.26 106/ul Critically low 4.70-6.10 [facility] Comment on above: Performed By: #### A 1C #### [facility] [address] [place] [address] Dr. David Magana WBC 11.5 103/ul Critically high 4.0-11.0 [facility] Comment on above: Performed By: #### A 1C #### [facility] [address] [place] [address] Dr. David Magana PROF 14(COMP METB)on 022 Albumin [Mass/Vol] 2.6 g/dL Critically low 3.4-5.0 [facility] Comment on above: Performed By: #### ERICK Jacques PHOS #### [facility] [address] [place] [address] Dr. David Magana Albumin/Globulin [Mass ratio] 0.9 {ratio} Normal [facility] Comment on above: Performed By: #### ERICK Jacques, PHOS #### [facility] [address] [place] [address] Dr. David Magana ALP [Catalytic activity/Vol] 49 U/L Normal 46-116 [facility] Comment on above: Performed By: #### M ERICK Faith, PHOS #### [facility] [address] [place] [address] Dr. David Magana ALT [Catalytic activity/Vol] 25 U/L Normal 16-63 [facility] Comment on above: Performed By: #### ERICK Jacques, PHOS #### [facility] [address] [place] [address] Dr. David Magana Anion gap [Moles/Vol] 12.8 mmol/L Normal [facility] Comment on above: Performed By: #### M ERICK Faith, PHOS #### [facility] [address] [address] [address] David Magana AST [Catalytic activity/Vol] 9 U/L Critically low 15-37 [facility] Comment on above: Performed By: #### ERICK Jacques, PHOS #### [facility] [address] [place] [address] Dr. David Magana Bilirubin [Mass/Vol] 0.5 mg/dL Normal 0.2-1.0 [facility] Comment on above: Performed By: #### ERICK Jacques, PHOS #### [facility] [address] [place] [address] Dr. David Magana Calcium [Mass/Vol] 8.3 mg/dL Critically low 8.5-10.1 [facility] Comment on above: Performed By: #### ERICK Jacques, PHOS #### [facility] [address] [place] [address] Dr. David Magana Chloride [Moles/Vol] 105 mmol/L Normal 98-107 [facility] Comment on above: Performed By: #### ERICK Jacques, PHOS #### [facility] [address] [place] [address] Dr. David Magana CO2 [Moles/Vol] 24.2 mmol/L Normal 21.0-32.0 [facility] Comment on above: Performed By: #### ERICK Jacques, PHOS #### [facility] [address] [place] [address] Dr. David Magana Creatinine [Mass/Vol] 1.28 mg/dL Normal 0.70-1.30 [facility] Comment on above: Performed By: #### ERICK Jacques, PHOS #### [facility] [address] [place] [address] Dr. David Magana EGFR-AF BERMUDIAN >60 Normal >=60 [facility] Comment on above: Performed By: #### M G, BMP, PHOS #### [facility] [address] [address] [address] David Magana EGFR-NON AF BERMUDIAN 54 mL/min/1.73m2 Critically low >=60 [facility] Comment on above: Performed By: #### M G, BMP, PHOS #### [facility] [address] [address] [address] David Magana Globulin (S) [Mass/Vol] 2.9 g/dL Normal [facility] Comment on above: Performed By: #### M G, BMP, PHOS #### [facility] [address] [address] [address] David Magana Glucose [Mass/Vol] 205 mg/dL Critically high 74-106 [facility] Comment on above: Performed By: #### M G, BMP, PHOS #### [facility] [address] [address] [address] David Magana Potassium [Moles/Vol] 4.0 mmol/L Normal 3.5-5.1 [facility] Comment on above: Performed By: #### M G, BMP, PHOS #### [facility] [address] [address] [address] David Magana Protein [Mass/Vol] 5.5 g/dL Critically low 6.4-8.2 [facility] Comment on above: Performed By: #### M G, BMP, PHOS #### [facility] [address] [address] [address] David Magana Sodium [Moles/Vol] 138 mmol/L Normal 136-145 [facility] Comment on above: Performed By: #### M G, BMP, PHOS #### [facility] [address] [address] [address] David Magana Urea nitrogen [Mass/Vol] 36.0 mg/dL Critically high 7.0-18.0 [facility] Comment on above: Performed By: #### M G, BMP, PHOS #### [facility] [address] [address] [address] David Magana Urea nitrogen/Creatinine [Mass ratio] 28.1 mg/mg Normal [facility] Comment on above: Performed By: #### M G, BMP, PHOS #### [facility] [address] [place] [address] Dr. David Magana BNPon 07-21-2022 Natriuretic peptide B (Bld) [Mass/Vol] 3485.0 pg/mL Critically high <=1,800.0 [facility] Comment on above: Result Comment: repe ated Performed By: #### A 1C #### [facility] [address] [place] [address] Dr. David Magana CBC AUTO DIFFon 07-21-2022 BASO # 0.0 103/ul Normal 0.0-0.1 [facility] Comment on above: Performed By: #### C BC #### [facility] [address] [place] [address] Dr. David Magana Basophils/100 WBC (Bld) 0.3 % Normal 0.2-2.0 [facility] Comment on above: Performed By: #### C BC #### [facility] [address] [place] [address] Dr. David Magana EO # 0.2 103/ul Normal 0.0-0.7 [facility] Comment on above: Performed By: #### C BC #### [facility] [address] [place] [address] Dr. David Magana Eosinophils/100 WBC (Bld) 1.9 % Normal 0.9-7.0 [facility] Comment on above: Performed By: #### C BC #### [facility] [address] [place] [address] Dr. David Magana Erythrocyte distribution width (RBC) [Ratio] 13.4 % Normal 11.0-15.0 [facility] Comment on above: Performed By: #### C BC #### [facility] [address] [place] [address] Dr. David Magana Hematocrit (Bld) [Volume fraction] 42.5 % Normal 42.0-54.0 [facility] Comment on above: Performed By: #### C BC #### [facility] [address] [address] [address] David Magana Hemoglobin (Bld) [Mass/Vol] 14.2 g/dL Normal 14.0-18.0 [facility] Comment on above: Performed By: #### C BC #### [facility] [address] [address] [address] David Magana IG # 0.22 10e3/ul Critically high 0.00-0.03 [facility] Comment on above: Performed By: #### C BC #### [facility] [address] [address] [address] David Magana IG % 2.1 % Critically high 0.0-0.5 [facility] Comment on above: Performed By: #### C BC #### [facility] [address] [address] [address] David Magana LYMPH # 0.8 103/ul Critically low 1.2-3.8 [facility] Comment on above: Performed By: #### C BC #### [facility] [address] [address] [address] David Magana Lymphocytes/100 WBC (Bld) 7.7 % Critically low 20.5-60.0 [facility] Comment on above: Performed By: #### C BC #### [facility] [address] [address] [address] David Magana MANUAL DIFF REQ NO Normal [facility] Comment on above: Performed By: #### C BC #### [facility] [address] [address] [address] David Magana MCH (RBC) [Entitic mass] 33.0 pg Normal 25.9-34.0 [facility] Comment on above: Performed By: #### C BC #### [facility] [address] [address] [address] David Magana MCHC (RBC) [Mass/Vol] 33.4 g/dL Normal 29.9-35.2 [facility] Comment on above: Performed By: #### C BC #### [facility] [address] [id number] [address] David Magana MCV (RBC) [Entitic vol] 98.8 fL Critically high 80.0-94.0 [facility] Comment on above: Performed By: #### C BC #### [facility] [address] [address] [address] David Magana MONO # 1.0 103/ul Critically high 0.3-0.8 [facility] Comment on above: Performed By: #### C BC #### [facility] [address] [address] [address] David Magana Monocytes/100 WBC (Bld) 9.7 % Normal 1.7-12.0 [facility] Comment on above: Performed By: #### C BC #### [facility] [address] [place] [address] Dr. David Magana NEUT # 8.1 103/ul Critically high 1.4-6.5 [facility] Comment on above: Performed By: #### C BC #### [facility] [address] [place] [address] Dr. David Magana Neutrophils/100 WBC (Bld) 78.3 % Critically high 43.0-75.0 [facility] Comment on above: Performed By: #### C BC #### [facility] [address] [place] [address] Dr. David Magana Platelet mean volume (Bld) [Entitic vol] 10.7 fL Normal 9.5-13.5 [facility] Comment on above: Performed By: #### C BC #### [facility] [address] [place] [address] Dr. David Magana PLT 177 103/ul Normal 150-450 [facility] Comment on above: Performed By: #### C BC #### [facility] [address] [place], [place] [id number] Dr. David Magana RBC 4.30 106/ul Critically low 4.70-6.10 [facility] Comment on above: Performed By: #### C BC #### [facility] [address] [place] [address] Dr. David Magana WBC 10.4 103/ul Normal 4.0-11.0 [facility] Comment on above: Performed By: #### C BC #### [facility] [address] [place] [address] Dr. David Magana PROF 14(COMP METB)on 022 Albumin [Mass/Vol] 2.6 g/dL Critically low 3.4-5.0 [facility] Comment on above: Performed By: #### A 1C #### [facility] [address] [place] [address] Dr. David Magana Albumin/Globulin [Mass ratio] 1.0 {ratio} Normal [facility] Comment on above: Performed By: #### A 1C #### [facility] [address] [place] [address] Dr. David Magana ALP [Catalytic activity/Vol] 50 U/L Normal 46-116 [facility] Comment on above: Performed By: #### A 1C #### [facility] [address] [place] [address] Dr. David Magana ALT [Catalytic activity/Vol] 28 U/L Normal 16-63 [facility] Comment on above: Performed By: #### A 1C #### [facility] [address] [place] [address] Dr. David Magana Anion gap [Moles/Vol] 11.4 mmol/L Normal [facility] Comment on above: Performed By: #### A 1C #### [facility] [address] [place] [address] Dr. David Magana AST [Catalytic activity/Vol] 13 U/L Critically low 15-37 [facility] Comment on above: Performed By: #### A 1C #### [facility] [address] [place] [address] Dr. David Magana Bilirubin [Mass/Vol] 0.4 mg/dL Normal 0.2-1.0 [facility] Comment on above: Performed By: #### A 1C #### [facility] [address] [place] [address] Dr. David Magana Calcium [Mass/Vol] 8.4 mg/dL Critically low 8.5-10.1 [facility] Comment on above: Performed By: #### A 1C #### [facility] [address] [place] [address] Dr. David Magana Chloride [Moles/Vol] 107 mmol/L Normal 98-107 [facility] Comment on above: Performed By: #### A 1C #### [facility] [address] [place] [address] Dr. David Magana CO2 [Moles/Vol] 24.6 mmol/L Normal 21.0-32.0 [facility] Comment on above: Performed By: #### A 1C #### [facility] [address] [place] [address] Dr. David Magana Creatinine [Mass/Vol] 1.26 mg/dL Normal 0.70-1.30 [facility] Comment on above: Performed By: #### A 1C #### [facility] [address] [place] [address] Dr. David Magana EGFR-AF BERMUDIAN >60 Normal >=60 [facility] Comment on above: Performed By: #### A 1C #### [facility] [address] [place] [address] Dr. Dvaid Magana EGFR-NON AF BERMUDIAN 55 mL/min/1.73m2 Critically low >=60 [facility] Comment on above: Performed By: #### A 1C #### [facility] [address] [place] [address] Dr. David Magana Globulin (S) [Mass/Vol] 2.7 g/dL Normal [facility] Comment on above: Performed By: #### A 1C #### [facility] [address] [place] [address] Dr. David Magana Glucose [Mass/Vol] 203 mg/dL Critically high 74-106 [facility] Comment on above: Performed By: #### A 1C #### [facility] [address] [place] [address] Dr. David Magana Potassium [Moles/Vol] 4.0 mmol/L Normal 3.5-5.1 [facility] Comment on above: Performed By: #### A 1C #### [facility] [address] [place] [address] Dr. David Magana Protein [Mass/Vol] 5.3 g/dL Critically low 6.4-8.2 [facility] Comment on above: Performed By: #### A 1C #### [facility] [address] [place] [address] Dr. David Magana Sodium [Moles/Vol] 139 mmol/L Normal 136-145 [facility] Comment on above: Performed By: #### A 1C #### [facility] [address] [place] [address] Dr. David Magana Urea nitrogen [Mass/Vol] 33.0 mg/dL Critically high 7.0-18.0 [facility] Comment on above: Performed By: #### A 1C #### [facility] [address] [place] [address] Dr. David Magana Urea nitrogen/Creatinine [Mass ratio] 26.2 mg/mg Normal [facility] Comment on above: Performed By: #### A 1C #### [facility] [address] [place] [address] Dr. David Magana BNPon 07-20-2022 Natriuretic peptide B (Bld) [Mass/Vol] 7478.0 pg/mL Critically high <=1,800.0 [facility] Comment on above: Performed By: #### A 1C #### [facility] [address] [place] [address] Dr. David Magana CBC AUTO DIFFon 07-20-2022 BASO # 0.1 103/ul Normal 0.0-0.1 [facility] Comment on above: Performed By: #### ERICK Jacques PHOS #### [facility] [address] [place] [address] Dr. David Magana Basophils/100 WBC (Bld) 0.8 % Normal 0.2-2.0 [facility] Comment on above: Performed By: #### ERICK Jacques PHOS #### [facility] [address] [place] [address] Dr. David Magana EO # 0.1 103/ul Normal 0.0-0.7 [facility] Comment on above: Performed By: #### M G, BMP, PHOS #### [facility] [address] [place] [address] Dr. David Magana Eosinophils/100 WBC (Bld) 0.6 % Critically low 0.9-7.0 [facility] Comment on above: Performed By: #### M G, BMP, PHOS #### [facility] [address] [place] [address] Dr. David Magana Erythrocyte distribution width (RBC) [Ratio] 13.4 % Normal 11.0-15.0 [facility] Comment on above: Performed By: #### M G, BMP, PHOS #### [facility] [address] [place] [address] Dr. David Magana Hematocrit (Bld) [Volume fraction] 43.2 % Normal 42.0-54.0 [facility] Comment on above: Performed By: #### M G, BMP, PHOS #### [facility] [address] [place] [address] Dr. David Magana Hemoglobin (Bld) [Mass/Vol] 14.2 g/dL Normal 14.0-18.0 [facility] Comment on above: Performed By: #### M G, BMP, PHOS #### [facility] [address] [place] [address] Dr. David Magana IG # 0.21 10e3/ul Critically high 0.00-0.03 [facility] Comment on above: Performed By: #### M G, BMP, PHOS #### [facility] [address] [place] [address] Dr. David Magana IG % 2.0 % Critically high 0.0-0.5 [facility] Comment on above: Performed By: #### M G, BMP, PHOS #### [facility] [address] [place] [address] Dr. David Magana LYMPH # 0.8 103/ul Critically low 1.2-3.8 [facility] Comment on above: Performed By: #### ERICK Jacques, PHOS #### [facility] [address] [place] [address] Dr. David Magana Lymphocytes/100 WBC (Bld) 7.7 % Critically low 20.5-60.0 [facility] Comment on above: Performed By: #### ERICK Jacques, PHOS #### [facility] [address] [place] [address] Dr. David Magana MANUAL DIFF REQ NO Normal [facility] Comment on above: Performed By: #### ERICK Jacques, PHOS #### [facility] [address] [place] [address] Dr. David Magana MCH (RBC) [Entitic mass] 33.2 pg Normal 25.9-34.0 [facility] Comment on above: Performed By: #### ERICK Jacques, PHOS #### [facility] [address] [place] [address] Dr. David Magana MCHC (RBC) [Mass/Vol] 32.9 g/dL Normal 29.9-35.2 [facility] Comment on above: Performed By: #### ERICK Jacques, PHOS #### [facility] [address] [place] [address] Dr. David Magana MCV (RBC) [Entitic vol] 100.9 fL Critically high 80.0-94.0 [facility] Comment on above: Performed By: #### ERICK Jacques, PHOS #### [facility] [address] [place] [address] Dr. David Magana MONO # 1.0 103/ul Critically high 0.3-0.8 [facility] Comment on above: Performed By: #### ERICK Jacques, PHOS #### [facility] [address] [place] [address] Dr. David Magana Monocytes/100 WBC (Bld) 10.0 % Normal 1.7-12.0 [facility] Comment on above: Performed By: #### M G, BMP, PHOS #### [facility] [address] [address] [address] David Magana NEUT # 8.1 103/ul Critically high 1.4-6.5 [facility] Comment on above: Performed By: #### M G, BMP, PHOS #### [facility] [address] [address] [address] David Magana Neutrophils/100 WBC (Bld) 78.9 % Critically high 43.0-75.0 [facility] Comment on above: Performed By: #### M Marcell, BMP, PHOS #### [facility] [address] [address] [address] David Magana Platelet mean volume (Bld) [Entitic vol] 10.8 fL Normal 9.5-13.5 [facility] Comment on above: Performed By: #### M Marcell BMP, PHOS #### [facility] [address] [address] [address] David Magana PLT 172 103/ul Normal 150-450 [facility] Comment on above: Performed By: #### M ERICK Faith, PHOS #### [facility] [address] [address] [address] David Magana RBC 4.28 106/ul Critically low 4.70-6.10 [facility] Comment on above: Performed By: #### M Marcell BMP, PHOS #### [facility] [address] [address] [address] David Magana WBC 10.3 103/ul Normal 4.0-11.0 [facility] Comment on above: Performed By: #### M Marcell, BMP, PHOS #### [facility] [address] [place] [address] Dr. David Magana CULTURE URINEon 07-20-2022 CULTURE [...] F Trimethoprim/Sulfameth oxazole >=320 R F Normal [facility] Comment on above: Performed By: #### M G, BMP, PHOS #### [facility] [address] [place] [address] Dr. David Magana PROF 14(COMP METB)on 022 Albumin [Mass/Vol] 2.6 g/dL Critically low 3.4-5.0 [facility] Comment on above: Performed By: #### A 1C #### [facility] [address] [place] [address] Dr. David Magana Albumin/Globulin [Mass ratio] 0.9 {ratio} Normal [facility] Comment on above: Performed By: #### A 1C #### [facility] [address] [place] [address] Dr. David Magana ALP [Catalytic activity/Vol] 48 U/L Normal 46-116 [facility] Comment on above: Performed By: #### A 1C #### [facility] [address] [place] [address] Dr. David Magana ALT [Catalytic activity/Vol] 27 U/L Normal 16-63 [facility] Comment on above: Performed By: #### A 1C #### [facility] [address] [place] [address] Dr. David Magana Anion gap [Moles/Vol] 13.4 mmol/L Normal [facility] Comment on above: Performed By: #### A 1C #### [facility] [address] [place] [address] Dr. David Magana AST [Catalytic activity/Vol] 22 U/L Normal 15-37 [facility] Comment on above: Performed By: #### A 1C #### [facility] [address] [place] [address] Dr. David Magana Bilirubin [Mass/Vol] 0.5 mg/dL Normal 0.2-1.0 [facility] Comment on above: Performed By: #### A 1C #### [facility] [address] [address] [address] David Magana Calcium [Mass/Vol] 8.3 mg/dL Critically low 8.5-10.1 [facility] Comment on above: Performed By: #### A 1C #### [facility] [address] [address] [address] David Magana Chloride [Moles/Vol] 105 mmol/L Normal 98-107 [facility] Comment on above: Performed By: #### A 1C #### [facility] [address] [place] [address] Dr. David Magana CO2 [Moles/Vol] 21.0 mmol/L Normal 21.0-32.0 [facility] Comment on above: Performed By: #### A 1C #### [facility] [address] [place] [address] Dr. David Magana Creatinine [Mass/Vol] 1.38 mg/dL Critically high 0.70-1.30 [facility] Comment on above: Performed By: #### A 1C #### [facility] [address] [place] [address] Dr. David Magana EGFR-AF BERMUDIAN 60 mL/min/1.73m2 Normal >=60 [facility] Comment on above: Performed By: #### A 1C #### [facility] [address] [address] [address] David Magana EGFR-NON AF BERMUDIAN 49 mL/min/1.73m2 Critically low >=60 [facility] Comment on above: Performed By: #### A 1C #### [facility] [address] [place] [address] Dr. David Magana Globulin (S) [Mass/Vol] 2.8 g/dL Normal [facility] Comment on above: Performed By: #### A 1C #### [facility] [address] [place] [address] Dr. David Magana Glucose [Mass/Vol] 156 mg/dL Critically high 74-106 [facility] Comment on above: Performed By: #### A 1C #### [facility] [address] [place] [address] Dr. David Magana Potassium [Moles/Vol] 4.4 mmol/L Normal 3.5-5.1 [facility] Comment on above: Performed By: #### A 1C #### [facility] [address] [place] [address] Dr. David Magana Protein [Mass/Vol] 5.4 g/dL Critically low 6.4-8.2 [facility] Comment on above: Performed By: #### A 1C #### [facility] [address] [place] [address] Dr. David Magana Sodium [Moles/Vol] 135 mmol/L Critically low 136-145 [facility] Comment on above: Performed By: #### A 1C #### [facility] [address] [place] [address] Dr. David Magana Urea nitrogen [Mass/Vol] 40.0 mg/dL Critically high 7.0-18.0 [facility] Comment on above: Performed By: #### A 1C #### [facility] [address] [place] [address] Dr. David Magana Urea nitrogen/Creatinine [Mass ratio] 29.0 mg/mg Normal [facility] Comment on above: Performed By: #### A 1C #### [facility] [address] [place] [address] Dr. David Magana BNPon 07-19-2022 Natriuretic peptide B (Bld) [Mass/Vol] 72791.0 pg/mL Critically high <=1,800.0 [facility] Comment on above: Performed By: #### C VDTB #### [facility] [address] [place] [address] Dr. David Magana CBC AUTO DIFFon 07-19-2022 BASO # 0.0 103/ul Normal 0.0-0.1 [facility] Comment on above: Performed By: #### C BC #### [facility] [address] [address] [address] David Magana Basophils/100 WBC (Bld) 0.3 % Normal 0.2-2.0 [facility] Comment on above: Performed By: #### C BC #### [facility] [address] [place] [address] Dr. David Magana EO # 0.0 103/ul Normal 0.0-0.7 [facility] Comment on above: Performed By: #### C BC #### [facility] [address] [place] [address] Dr. David Magana Eosinophils/100 WBC (Bld) 0.2 % Critically low 0.9-7.0 [facility] Comment on above: Performed By: #### C BC #### [facility] [address] [place] [address] Dr. David Magana Erythrocyte distribution width (RBC) [Ratio] 13.4 % Normal 11.0-15.0 [facility] Comment on above: Performed By: #### C BC #### [facility] [address] [place] [address] Dr. David Magana Hematocrit (Bld) [Volume fraction] 43.4 % Normal 42.0-54.0 [facility] Comment on above: Performed By: #### C BC #### [facility] [address] [place] [address] Dr. David Magana Hemoglobin (Bld) [Mass/Vol] 14.6 g/dL Normal 14.0-18.0 [facility] Comment on above: Performed By: #### C BC #### [facility] [address] [place] [address] Dr. David Magana IG # 0.18 10e3/ul Critically high 0.00-0.[address] [facility] Comment on above: Performed By: #### C BC #### [facility] [address] [place] [address] Dr. David Magana IG % 1.5 % Critically high 0.0-0.5 [facility] Comment on above: Performed By: #### C BC #### [facility] [address] [address] [address] David Magana LYMPH # 0.8 103/ul Critically low 1.2-3.8 [facility] Comment on above: Performed By: #### C BC #### [facility] [address] [place] [address] Dr. David Magana Lymphocytes/100 WBC (Bld) 6.6 % Critically low 20.5-60.0 [facility] Comment on above: Performed By: #### C BC #### [facility] [address] [place] [address] Dr. David Magana MANUAL DIFF REQ NO Normal [facility] Comment on above: Performed By: #### C BC #### [facility] [address] [place] [address] Dr. David Magana MCH (RBC) [Entitic mass] 33.7 pg Normal 25.9-34.0 [facility] Comment on above: Performed By: #### C BC #### [facility] [address] [place] [address] Dr. David Magana MCHC (RBC) [Mass/Vol] 33.6 g/dL Normal 29.9-35.2 [facility] Comment on above: Performed By: #### C BC #### [facility] [address] [place] [address] Dr. David Magana MCV (RBC) [Entitic vol] 100.2 fL Critically high 80.0-94.0 [facility] Comment on above: Performed By: #### C BC #### [facility] [address] [place] [address] Dr. David Magana MONO # 1.1 103/ul Critically high 0.3-0.8 [facility] Comment on above: Performed By: #### C BC #### [facility] [address] [place] [address] Dr. David Magana Monocytes/100 WBC (Bld) 9.3 % Normal 1.7-12.0 [facility] Comment on above: Performed By: #### C BC #### [facility] [address] [place] [address] Dr. David Magana NEUT # 9.6 103/ul Critically high 1.4-6.5 [facility] Comment on above: Performed By: #### C BC #### [facility] [address] [address] [address] David Magana Neutrophils/100 WBC (Bld) 82.1 % Critically high 43.0-75.0 [facility] Comment on above: Performed By: #### C BC #### [facility] [address] [address] [address] David Magana Platelet mean volume (Bld) [Entitic vol] 10.8 fL Normal 9.5-13.5 [facility] Comment on above: Performed By: #### C BC #### [facility] [address] [address] [address] David Magana PLT 202 103/ul Normal 150-450 [facility] Comment on above: Performed By: #### C BC #### [facility] [address] [address] [address] David Magana RBC 4.33 106/ul Critically low 4.70-6.10 [facility] Comment on above: Performed By: #### C BC #### [facility] [address] [address] [address] David Magana WBC 11.7 103/ul Critically high 4.0-11.0 [facility] Comment on above: Performed By: #### C BC #### [facility] [address] [address] [address] David Magana PROF 14(COMP METB)on 022 Albumin [Mass/Vol] 3.4 g/dL Normal 3.4-5.0 [facility] Comment on above: Performed By: #### A 1C #### [facility] [address] [address] [address] David Magana Albumin/Globulin [Mass ratio] 1.1 {ratio} Normal [facility] Comment on above: Performed By: #### A 1C #### [facility] [address] [address] [address] David Magana ALP [Catalytic activity/Vol] 63 U/L Normal 46-116 [facility] Comment on above: Performed By: #### A 1C #### [facility] [address] [address] [address] David Magana ALT [Catalytic activity/Vol] 34 U/L Normal 16-63 [facility] Comment on above: Performed By: #### A 1C #### [facility] [address] [address] [address] David Magana Anion gap [Moles/Vol] 20.9 mmol/L Normal [facility] Comment on above: Performed By: #### A 1C #### [facility] [address] [place] [address] Dr. David Magana AST [Catalytic activity/Vol] 18 U/L Normal 15-37 [facility] Comment on above: Performed By: #### A 1C #### [facility] [address] [place] [address] Dr. David Magana Bilirubin [Mass/Vol] 0.5 mg/dL Normal 0.2-1.0 [facility] Comment on above: Performed By: #### A 1C #### [facility] [address] [place] [address] Dr. David Magana Calcium [Mass/Vol] 8.5 mg/dL Normal 8.5-10.1 [facility] Comment on above: Performed By: #### A 1C #### [facility] [address] [place] [address] Dr. David Magana Chloride [Moles/Vol] 99 mmol/L Normal 98-107 [facility] Comment on above: Performed By: #### A 1C #### [facility] [address] [address] [address] Dvaid Magana CO2 [Moles/Vol] 19.1 mmol/L Critically low 21.0-32.0 [facility] Comment on above: Performed By: #### A 1C #### [facility] [address] [place] [address] Dr. David Magana Creatinine [Mass/Vol] 1.80 mg/dL Critically high 0.70-1.30 [facility] Comment on above: Performed By: #### A 1C #### [facility] [address] [place] [address] Dr. David Magana EGFR-AF BERMUDIAN 44 mL/min/1.73m2 Critically low >=60 [facility] Comment on above: Performed By: #### A 1C #### [facility] [address] [address] [address] David Magana EGFR-NON AF BERMUDIAN 36 mL/min/1.73m2 Critically low >=60 [facility] Comment on above: Performed By: #### A 1C #### [facility] [address] [place] [address] Dr. David Magana Globulin (S) [Mass/Vol] 3.2 g/dL Normal [facility] Comment on above: Performed By: #### A 1C #### [facility] [address] [address] [address] David Magana Glucose [Mass/Vol] 287 mg/dL Critically high 74-106 [facility] Comment on above: Performed By: #### A 1C #### [facility] [address] [address] [address] David Magana Potassium [Moles/Vol] 5.0 mmol/L Normal 3.5-5.1 [facility] Comment on above: Performed By: #### A 1C #### [facility] [address] [address] [address] David Magana Protein [Mass/Vol] 6.6 g/dL Normal 6.4-8.2 [facility] Comment on above: Performed By: #### A 1C #### [facility] [address] [address] [address] David Magana Sodium [Moles/Vol] 134 mmol/L Critically low 136-145 [facility] Comment on above: Performed By: #### A 1C #### [facility] [address] [address] [address] David Magana Urea nitrogen [Mass/Vol] 51.0 mg/dL Critically high 7.0-18.0 [facility] Comment on above: Performed By: #### A 1C #### [facility] [address] [address] [address] David Magana Urea nitrogen/Creatinine [Mass ratio] 28.3 mg/mg Normal [facility] Comment on above: Performed By: #### A 1C #### [facility] [address] [address] [address] David Magana BLOOD GASES BTYon 07-18-2022 02 MODE NASAL CANNULA Normal [facility] Comment on above: Performed By: #### A 1C #### [facility] [address] [address] [address] David Magana ALLENS TEST Positive [facility] Comment on above: Performed By: #### A 1C #### [facility] [address] [address] [address] David Magana Base excess Calc (Bld) [Moles/Vol] -9.0000 mmol/L Critically low -2.0-2.0 [facility] Comment on above: Performed By: #### A 1C #### [facility] [address] [address] [address] David Magana BIPAP PRESSURE Normal [facility] Comment on above: Performed By: #### A 1C #### [facility] [address] [address] [address] David Magana CPAP [facility] Comment on above: Performed By: #### A 1C #### [facility] [address] [address] [address] David Magana FIO2 [facility] Comment on above: Performed By: #### A 1C #### [facility] [address] [address] [address] David Magana HCO3 (Bld) [Moles/Vol] 18.4 mmol/L Critically low 22.0-26.0 [facility] Comment on above: Performed By: #### A 1C #### [facility] [address] [address] [address] David Magana LPM 1.5 Normal [facility] Comment on above: Performed By: #### A 1C #### [facility] [address] [address] [address] David Magana MINUTE VOLUME Normal [facility] Comment on above: Performed By: #### A 1C #### [facility] [address] [address] [address] David Magana Oxygen (Bld) [Partial pressure] 69.5 mm[Hg] Critically low 80.0-100.0 [facility] Comment on above: Performed By: #### A 1C #### [facility] [address] [place] [address] Dr. David Magana Oxygen saturation in Blood 94.2 % Critically low 95.0-100.0 [facility] Comment on above: Performed By: #### A 1C #### [facility] [address] [place] [address] Dr. David Magana PCO2 29.6 mmHg Critically low 35.0-45.0 [facility] Comment on above: Performed By: #### A 1C #### [facility] [address] [place] [address] Dr. David Magana PEEP [facility] Comment on above: Performed By: #### A 1C #### [facility] [address] [place] [address] Dr. David Magana pH (Bld) 7.355 [pH] Normal 7.350-7.450 [facility] Comment on above: Performed By: #### A 1C #### [facility] [address] [place] [address] Dr. David Magana PIP [facility] Comment on above: Performed By: #### A 1C #### [facility] [address] [place] [address] Dr. David Magana PS [facility] Comment on above: Performed By: #### A 1C #### [facility] [address] [place] [address] Dr. David Magana PUNCTURE SITE LR [facility] Comment on above: Performed By: #### A 1C #### [facility] [address] [place] [address] Dr. David Magana [facility] Comment on above: Performed By: #### A 1C #### [facility] [address] [place] [address] Dr. David Magana [facility] Comment on above: Performed By: #### A 1C #### [facility] [address] [place] [address] Dr. David Magana [facility] Comment on above: Performed By: #### A 1C #### [facility] [address] [place] [address] Dr. David Magana BNPon 07-18-2022 Natriuretic peptide B (Bld) [Mass/Vol] 7047.0 pg/mL Critically high <=1,800.0 [facility] Comment on above: Performed By: #### C VDTB #### [facility] [address] [place] [address] Dr. David Magana CARDIAC BARRIE 3-6on 2 CK [Catalytic activity/Vol] 396 U/L Critically high 39-308 [facility] Comment on above: Performed By: #### ERICK Jacques PHOS #### [facility] [address] [place] [address] Dr. David Magana CK.MB [Mass/Vol] 2.94 ng/mL Normal <=3.60 [facility] Comment on above: Performed By: #### ERICK Jacques, PHOS #### [facility] [address] [place] [address] Dr. David Magana HSTROP 11.1 pg/mL Normal 4.0-76.1 [facility] Comment on above: Result Comment: CUT- OFF POINTS HAVE BEEN ESTABLISHED BASED ON THE FOURTH UNIVERSAL DEFINITIONS OF MYOCARDIAL INFARCTION. THE UPPER REFERENCE LIMIT (URL) OF TROPONIN, DEFINED THE 99TH PERCENTILE OF cTnI DISTRIBUTION IN A REFERENCE POPULATION, HAS BEEN CONFIRMED THE DECISION THRESHOLD FOR [place] DIAGNOSIS. Performed By: #### M ERICK Faith, PHOS #### [facility] [address] [place] [address] Dr. David Magana CK [Catalytic activity/Vol] 58 U/L Normal 39-308 [facility] Comment on above: Performed By: #### ERICK Jacques, PHOS #### [facility] [address] [place] [address] Dr. David Magana CK.MB [Mass/Vol] 1.71 ng/mL Normal <=3.60 [facility] Comment on above: Performed By: #### ERICK Jacques, PHOS #### [facility] [address] [place] [address] Dr. David Magana HSTROP 10.6 pg/mL Normal 4.0-76.1 [facility] Comment on above: Result Comment: CUT- OFF POINTS HAVE BEEN ESTABLISHED BASED ON THE FOURTH UNIVERSAL DEFINITIONS OF MYOCARDIAL INFARCTION. THE UPPER REFERENCE LIMIT (URL) OF TROPONIN, DEFINED THE 99TH PERCENTILE OF cTnI DISTRIBUTION IN A REFERENCE POPULATION, HAS BEEN CONFIRMED THE DECISION THRESHOLD FOR [place] DIAGNOSIS. Performed By: #### ERICK Jacques, PHOS #### [facility] [address] [place] [address] Dr. David Magana CBC AUTO DIFFon 07-18-2022 BASO # 0.0 103/ul Normal 0.0-0.1 [facility] Comment on above: Performed By: #### ERICK Jacques, PHOS #### [facility] [address] [place] [address] Dr. David Magana Basophils/100 WBC (Bld) 0.2 % Normal 0.2-2.0 [facility] Comment on above: Performed By: #### ERICK Jacques, PHOS #### [facility] [address] [place] [address] Dr. David Magana EO # 0.0 103/ul Normal 0.0-0.7 [facility] Comment on above: Performed By: #### ERICK Jacques, PHOS #### [facility] [address] [place] [address] Dr. David Magana Eosinophils/100 WBC (Bld) 0.2 % Critically low 0.9-7.0 [facility] Comment on above: Performed By: #### ERICK Jacques, PHOS #### [facility] [address] [place] [address] Dr. David Magana Erythrocyte distribution width (RBC) [Ratio] 13.2 % Normal 11.0-15.0 [facility] Comment on above: Performed By: #### M G, BMP, PHOS #### [facility] [address] [place] [address] Dr. David Magana Hematocrit (Bld) [Volume fraction] 43.8 % Normal 42.0-54.0 [facility] Comment on above: Performed By: #### M G, BMP, PHOS #### [facility] [address] [place] [address] Dr. David Magana Hemoglobin (Bld) [Mass/Vol] 14.5 g/dL Normal 14.0-18.0 [facility] Comment on above: Performed By: #### M G, BMP, PHOS #### [facility] [address] [place] [address] Dr. David Magana IG # 0.15 10e3/ul Critically high 0.00-0.03 [facility] Comment on above: Performed By: #### M G, BMP, PHOS #### [facility] [address] [place] [address] Dr. David Magana IG % 1.3 % Critically high 0.0-0.5 [facility] Comment on above: Performed By: #### M G, BMP, PHOS #### [facility] [address] [place] [address] Dr. David Magana LYMPH # 0.5 103/ul Critically low 1.2-3.8 [facility] Comment on above: Performed By: #### M G, BMP, PHOS #### [facility] [address] [place] [address] Dr. David Magana Lymphocytes/100 WBC (Bld) 3.8 % Critically low 20.5-60.0 [facility] Comment on above: Performed By: #### M G, BMP, PHOS #### [facility] [address] [place] [address] Dr. David Magana MANUAL DIFF REQ NO Normal [facility] Comment on above: Performed By: #### M ERICK Faith, PHOS #### [facility] [address] [place] [address] Dr. David Magana MCH (RBC) [Entitic mass] 32.7 pg Normal 25.9-34.0 [facility] Comment on above: Performed By: #### M ERICK Faith, PHOS #### [facility] [address] [place] [address] Dr. David Magana MCHC (RBC) [Mass/Vol] 33.1 g/dL Normal 29.9-35.2 [facility] Comment on above: Performed By: #### ERICK Jacques, PHOS #### [facility] [address] [place] [address] Dr. David Magana MCV (RBC) [Entitic vol] 98.9 fL Critically high 80.0-94.0 [facility] Comment on above: Performed By: #### ERICK Jacques, PHOS #### [facility] [address] [place] [address] Dr. David Magana MONO # 0.7 103/ul Normal 0.3-0.8 [facility] Comment on above: Performed By: #### ERICK Jacques, PHOS #### [facility] [address] [place] [address] Dr. David Magana Monocytes/100 WBC (Bld) 5.7 % Normal 1.7-12.0 [facility] Comment on above: Performed By: #### ERICK Jacques, PHOS #### [facility] [address] [place] [address] Dr. David Magana NEUT # 10.4 103/ul Critically high 1.4-6.5 [facility] Comment on above: Performed By: #### ERICK Jacques, PHOS #### [facility] [address] [place] [address] Dr. David Magana Neutrophils/100 WBC (Bld) 88.8 % Critically high 43.0-75.0 [facility] Comment on above: Performed By: #### M G, BMP, PHOS #### [facility] [address] [place], [place] [address] Dr. David Magana Platelet mean volume (Bld) [Entitic vol] 11.0 fL Normal 9.5-13.5 [facility] Comment on above: Performed By: #### M G, BMP, PHOS #### [facility] [address] [place], [place] [address] Dr. David Magana PLT 198 103/ul Normal 150-450 [facility] Comment on above: Performed By: #### M G, BMP, PHOS #### [facility] [address] [place], [place] [address] Dr. David Magana RBC 4.43 106/ul Critically low 4.70-6.10 [facility] Comment on above: Performed By: #### M G, BMP, PHOS #### [facility] [address] [place], [place] [address] Dr. David Magana WBC 11.8 103/ul Critically high 4.0-11.0 [facility] Comment on above: Performed By: #### M G, BMP, PHOS #### [facility] [address] [place], [place] [address] HEAD WO CONon [...] FRANCISCO ZELAYA Date: 2022-07-18 05:12 Normal [facility] Covid-19 PCR (CVDTBH)on SARS-CoV-2 (COVID-19) RNA SULTANA+probe Ql (Unsp spec) Detected Critically abnormal NOT DETECTED [facility] Comment on above: Result Comment: This test is not yet approved or cleared by the [place] FDA. When there are no FDA-approved or cleared tests available, and other criteria are met, FDA can make tests available under an emergency access mechanism called an Emergency Use Authorization (EUA). The EUA for this test is supported by the [place] of Health and Human Service's declaration that [...] used). Performed By: #### C VDTBH #### [facility] [address] [place] [address] Dr. David Magana D-DIMERon 07-18-2022 D-DIMER 1.69 mg/L FEU Critically high <=0.59 [facility] Comment on above: Performed By: #### C BC #### [facility] [address] [place] [address] Dr. David Magana D-DIMER COMMENTS SEE BELOW Normal [facility] Comment on above: Result Comment: Incr [...] hospitalization. Performed By: #### C BC #### [facility] [address] [place] [address] Dr. David Magana POINT OF CARE GLUCOSEon Glucose [Mass/Vol] 329 mg/dL Critically high 74-106 [facility] Comment on above: Performed By: #### P OCGLUC #### [facility] [address] [address] [address] David Magana Glucose [Mass/Vol] 354 mg/dL Critically high 74-106 [facility] Comment on above: Performed By: #### P OCGLUC #### [facility] [address] [place] [address] Dr. David Magana PROF 14(COMP METB)on 022 Albumin [Mass/Vol] 3.6 g/dL Normal 3.4-5.0 [facility] Comment on above: Performed By: #### C VDTBH #### [facility] [address] [place] [address] Dr. David Magana Albumin/Globulin [Mass ratio] 1.1 {ratio} Normal [facility] Comment on above: Performed By: #### C VDTBH #### [facility] [address] [place] [address] Dr. David Magana ALP [Catalytic activity/Vol] 67 U/L Normal 46-116 [facility] Comment on above: Performed By: #### C VDTBH #### [facility] [address] [place] [address] Dr. David Magana ALT [Catalytic activity/Vol] 33 U/L Normal 16-63 [facility] Comment on above: Performed By: #### C VDTBH #### [facility] [address] [address] [address] David Magana Anion gap [Moles/Vol] 23.5 mmol/L Normal [facility] Comment on above: Performed By: #### C VDTBH #### [facility] [address] [address] [address] David Magana AST [Catalytic activity/Vol] 13 U/L Critically low 15-37 [facility] Comment on above: Performed By: #### C VDTBH #### [facility] [address] [place] [address] Dr. David Magana Bilirubin [Mass/Vol] 0.6 mg/dL Normal 0.2-1.0 [facility] Comment on above: Performed By: #### C VDTBH #### [facility] [address] [place] [address] Dr. David Magana Calcium [Mass/Vol] 8.4 mg/dL Critically low 8.5-10.1 [facility] Comment on above: Performed By: #### C VDTBH #### [facility] [address] [place] [address] Dr. David Magana Chloride [Moles/Vol] 93 mmol/L Critically low 98-107 [facility] Comment on above: Performed By: #### C VDTBH #### [facility] [address] [place] [address] Dr. David Magana CO2 [Moles/Vol] 17.9 mmol/L Critically low 21.0-32.0 [facility] Comment on above: Performed By: #### C VDTBH #### [facility] [address] [place] [address] Dr. David Magana Creatinine [Mass/Vol] 2.15 mg/dL Critically high 0.70-1.30 [facility] Comment on above: Performed By: #### C VDTBH #### [facility] [address] [place] [address] Dr. David Magana EGFR-AF BERMUDIAN 36 mL/min/1.73m2 Critically low >=60 [facility] Comment on above: Performed By: #### C VDTBH #### [facility] [address] [place] [address] Dr. David Magana EGFR-NON AF BERMUDIAN 30 mL/min/1.73m2 Critically low >=60 [facility] Comment on above: Performed By: #### C VDTBH #### [facility] [address] [place] [address] Dr. David Magana Globulin (S) [Mass/Vol] 3.2 g/dL Normal [facility] Comment on above: Performed By: #### C VDTBH #### [facility] [address] [place] [address] Dr. David Magana Glucose [Mass/Vol] 345 mg/dL Critically high 74-106 [facility] Comment on above: Performed By: #### C VDTBH #### [facility] [address] [address] [address] David Magana Potassium [Moles/Vol] 5.4 mmol/L Critically high 3.5-5.1 [facility] Comment on above: Performed By: #### C VDTBH #### [facility] [address] [address] [address] David Magana Performed By: #### K #### [facility] [address] [place] [address] Dr. David Magana Protein [Mass/Vol] 6.8 g/dL Normal 6.4-8.2 [facility] Comment on above: Performed By: #### C VDTBH #### [facility] [address] [place] [address] Dr. David Magana Sodium [Moles/Vol] 129 mmol/L Critically low 136-145 [facility] Comment on above: Performed By: #### C VDTBH #### [facility] [address] [place] [address] Dr. David Magana Urea nitrogen [Mass/Vol] 65.0 mg/dL Critically high 7.0-18.0 [facility] Comment on above: Performed By: #### C VDTBH #### [facility] [address] [place] [address] Dr. David Magana Urea nitrogen/Creatinine [Mass ratio] 30.2 mg/mg Normal [facility] Comment on above: Performed By: #### C VDTBH #### [facility] [address] [place] [address] Dr. David Magana UA RANDOM W/MICROSCOPICon BACTERIA NONE SEEN Normal NONE SEEN [facility] Comment on above: Performed By: #### ERICK Jacques, PHOS #### [facility] [address] [place] [address] Dr. David Magana Bilirubin Ql (U) Negative Normal NEGATIVE [facility] Comment on above: Performed By: #### M G, BMP, PHOS #### [facility] [address] [place] [address] Dr. David Magana CAST NONE SEEN Normal NONE SEEN [facility] Comment on above: Performed By: #### M G, BMP, PHOS #### [facility] [address] [place] [address] Dr. David Magana Clarity (U) CLEAR Normal CLEAR [facility] Comment on above: Performed By: #### M G, BMP, PHOS #### [facility] [address] [place] [address] Dr. David Magana Color (U) LT. YELLOW Normal YELLOW [facility] Comment on above: Performed By: #### M G, BMP, PHOS #### [facility] [address] [place] [address] Dr. David Magana Crystals LM Nom (Urine sed) NONE SEEN Normal NONE SEEN [facility] Comment on above: Performed By: #### M Marcell, BMP, PHOS #### [facility] [address] [place] [address] Dr. David Magana Epithelial cells LM Ql (Urine sed) RARE Normal NONE SEEN /RARE [facility] Comment on above: Performed By: #### M Marcell, BMP, PHOS #### [facility] [address] [place] [address] Dr. David Magana Glucose Ql (U) 1000 mg/dl Abnormal NEGATIVE [facility] Comment on above: Performed By: #### M Marcell, BMP, PHOS #### [facility] [address] [place] [address] Dr. David Magana Hemoglobin Ql (U) Negative Normal NEGATIVE The [facility] Comment on above: Performed By: #### M G, BMP, PHOS #### [facility] [address] [place] [address] Dr. David Magana Ketones Ql (U) 15 mg/dl Abnormal NEGATIVE [facility] Comment on above: Performed By: #### M G, BMP, PHOS #### [facility] [address] [place] [address] Dr. David Magana LEUKOCYTES Negative Normal NEGATIVE [facility] Comment on above: Performed By: #### M G, BMP, PHOS #### [facility] [address] [address] [address] David Magana MUCOUS NONE SEEN Normal NONE SEEN [facility] Comment on above: Performed By: #### M G, BMP, PHOS #### [facility] [address] [address] [address] David Magana Nitrite Ql (U) Negative Normal NEGATIVE [facility] Comment on above: Performed By: #### M G, BMP, PHOS #### [facility] [address] [address] [address] David Magana pH (U) 5.5 [pH] Normal 5-9 [facility] Comment on above: Performed By: #### M G, BMP, PHOS #### [facility] [address] [place] [address] Dr. David Magana RBC NONE SEEN Abnormal 0-2 [facility] Comment on above: Performed By: #### M G, BMP, PHOS #### [facility] [address] [place] [address] Dr. David Magana SPEC GRAVITY <=1.005 Abnormal 1.005-<=1.02 5 [facility] Comment on above: Performed By: #### M G, BMP, PHOS #### [facility] [address] [place] [address] Dr. David Magana UA PROTEIN Negative Normal NEGATIVE/ TRACE [facility] Comment on above: Performed By: #### M G, BMP, PHOS #### [facility] [address] [address] [address] David Magana Urobilinogen Qn (U) 0.2 {Dionna'U}/dL Normal 0.2 - 1. 0 [facility] Comment on above: Performed By: #### M G, BMP, PHOS #### [facility] [address] [place] [address] Dr. David Magana WBC NONE SEEN Normal NONE SEEN [facility] Comment on above: Performed By: #### M G, BMP, PHOS #### [facility] [address] [address] [address] David Magana XR CHEST 1 Von [...] Yefri DWYER Date: 2022-07-18 00:09 Normal [facility] CARDIAC BARRIE ADMITon 022 CK [Catalytic activity/Vol] 61 U/L Normal 39-308 [facility] Comment on above: Performed By: #### C BC #### [facility] [address] [place] [address] Dr. David Magana CK.MB [Mass/Vol] 1.84 ng/mL Normal <=3.60 [facility] Comment on above: Performed By: #### C BC #### [facility] [address] [address] [address] David Magana HSTROP 9.4 pg/mL Normal 4.0-76.1 [facility] Comment on above: Result Comment: CUT- OFF POINTS HAVE BEEN ESTABLISHED BASED ON THE FOURTH UNIVERSAL DEFINITIONS OF MYOCARDIAL INFARCTION. THE UPPER REFERENCE LIMIT (URL) OF TROPONIN, DEFINED THE 99TH PERCENTILE OF cTnI DISTRIBUTION IN A REFERENCE POPULATION, HAS BEEN CONFIRMED THE DECISION THRESHOLD FOR [place] DIAGNOSIS. Performed By: #### C BC #### [facility] [address] [address] [address] David Magana DUSTIN 533 ng/mL Critically high 16-96 [facility] Comment on above: Performed By: #### C BC #### [facility] [address] [place] [address] Dr. David Magana CBC AUTO DIFFon 07-17-2022 BASO # 0.0 103/ul Normal 0.0-0.1 [facility] Comment on above: Performed By: #### M ERICK Faith, PHOS #### [facility] [address] [place] [address] Dr. David Magana Basophils/100 WBC (Bld) 0.2 % Normal 0.2-2.0 [facility] Comment on above: Performed By: #### M Marcell BMP, PHOS #### [facility] [address] [place] [address] Dr. David Magana EO # 0.0 103/ul Normal 0.0-0.7 [facility] Comment on above: Performed By: #### M ERICK Faith, PHOS #### [facility] [address] [place] [address] Dr. David Magana Eosinophils/100 WBC (Bld) 0.1 % Critically low 0.9-7.0 [facility] Comment on above: Performed By: #### ERICK Jacques, PHOS #### [facility] [address] [place] [address] Dr. David Magana Erythrocyte distribution width (RBC) [Ratio] 13.2 % Normal 11.0-15.0 [facility] Comment on above: Performed By: #### ERICK Jacques, PHOS #### [facility] [address] [place] [address] Dr. David Magana Hematocrit (Bld) [Volume fraction] 43.1 % Normal 42.0-54.0 [facility] Comment on above: Performed By: #### M ERICK Faith, PHOS #### [facility] [address] [place] [address] Dr. David Magana Hemoglobin (Bld) [Mass/Vol] 14.5 g/dL Normal 14.0-18.0 [facility] Comment on above: Performed By: #### M ERICK Faith, PHOS #### [facility] [address] [place] [address] Dr. David Magana IG # 0.14 10e3/ul Critically high 0.00-0.03 [facility] Comment on above: Performed By: #### M ERICK Faith, PHOS #### [facility] [address] [place] [address] Dr. David Magana IG % 1.2 % Critically high 0.0-0.5 [facility] Comment on above: Performed By: #### M ERICK Faith, PHOS #### [facility] [address] [place] [address] Dr. David Magana LYMPH # 0.4 103/ul Critically low 1.2-3.8 [facility] Comment on above: Performed By: #### M Marcell, ERICK, PHOS #### [facility] [address] [place] [address] Dr. David Magana Lymphocytes/100 WBC (Bld) 3.4 % Critically low 20.5-60.0 [facility] Comment on above: Performed By: #### M ERICK Faith, PHOS #### [facility] [address] [place] [address] Dr. David Magana MANUAL DIFF REQ NO Normal [facility] Comment on above: Performed By: #### M ERICK Faith, PHOS #### [facility] [address] [place] [address] Dr. David Magana MCH (RBC) [Entitic mass] 33.3 pg Normal 25.9-34.0 [facility] Comment on above: Performed By: #### M ERICK Faith, PHOS #### [facility] [address] [place] [address] Dr. David Magana MCHC (RBC) [Mass/Vol] 33.6 g/dL Normal 29.9-35.2 [facility] Comment on above: Performed By: #### M ERICK Faith, PHOS #### [facility] [address] [place] [address] Dr. David Magana MCV (RBC) [Entitic vol] 98.9 fL Critically high 80.0-94.0 [facility] Comment on above: Performed By: #### M ERICK Faith, PHOS #### [facility] [address] [place] [address] Dr. David Magana MONO # 1.1 103/ul Critically high 0.3-0.8 [facility] Comment on above: Performed By: #### M Marcell BMP, PHOS #### [facility] [address] [address] [address] David Magana Monocytes/100 WBC (Bld) 8.9 % Normal 1.7-12.0 [facility] Comment on above: Performed By: #### M G, BMP, PHOS #### [facility] [address] [place] [address] Dr. David Magana NEUT # 10.3 103/ul Critically high 1.4-6.5 [facility] Comment on above: Performed By: #### M Marcell BMP, PHOS #### [facility] [address] [place] [address] Dr. David Magana Neutrophils/100 WBC (Bld) 86.2 % Critically high 43.0-75.0 [facility] Comment on above: Performed By: #### ERICK Jacques, PHOS #### [facility] [address] [place] [address] Dr. David Magana Platelet mean volume (Bld) [Entitic vol] 11.1 fL Normal 9.5-13.5 [facility] Comment on above: Performed By: #### Jim Faith BMP, PHOS #### [facility] [address] [place] [address] Dr. David Magana PLT 229 103/ul Normal 150-450 [facility] Comment on above: Performed By: #### ERICK Jacques, PHOS #### [facility] [address] [place] [address] Dr. David Magana RBC 4.36 106/ul Critically low 4.70-6.10 [facility] Comment on above: Performed By: #### M Marcell BMP, PHOS #### [facility] [address] [place] [address] Dr. David Magana WBC 11.9 103/ul Critically high 4.0-11.0 [facility] Comment on above: Performed By: #### M Marcell BMP, PHOS #### [facility] [address] [place] [address] Dr. David Magana PROF CHEM 8 (BAS METB)on Anion gap [Moles/Vol] 26.5 mmol/L Normal [facility] Comment on above: Performed By: #### C BC #### [facility] [address] [address] [address] David Magana Calcium [Mass/Vol] 8.2 mg/dL Critically low 8.5-10.1 [facility] Comment on above: Performed By: #### C BC #### [facility] [address] [address] [address] David Magana Chloride [Moles/Vol] 89 mmol/L Critically low 98-107 [facility] Comment on above: Performed By: #### C BC #### [facility] [address] [address] [address] David Magana CO2 [Moles/Vol] 14.5 mmol/L Critically low 21.0-32.0 [facility] Comment on above: Performed By: #### C BC #### [facility] [address] [address] [address] David Magana Creatinine [Mass/Vol] 2.78 mg/dL Critically high 0.70-1.30 [facility] Comment on above: Performed By: #### C BC #### [facility] [address] [address] [address] David Magana EGFR-AF BERMUDIAN 27 mL/min/1.73m2 Critically low >=60 [facility] Comment on above: Performed By: #### C BC #### [facility] [address] [address] [address] David Magana EGFR-NON AF BERMUDIAN 22 mL/min/1.73m2 Critically low >=60 [facility] Comment on above: Performed By: #### C BC #### [facility] [address] [address] [address] David Magana Glucose [Mass/Vol] 442 mg/dL Critically high 74-106 [facility] Comment on above: Performed By: #### C BC #### [facility] [address] [address] [address] David Magana Potassium [Moles/Vol] 6.0 mmol/L Critically high 3.5-5.1 [facility] Comment on above: Performed By: #### C BC #### [facility] [address] [address] [address] David Magana Sodium [Moles/Vol] 124 mmol/L Critically low 136-145 [facility] Comment on above: Performed By: #### C BC #### [facility] [address] [address] [address] David Magana Urea nitrogen [Mass/Vol] 73.0 mg/dL Critically high 7.0-18.0 [facility] Comment on above: Performed By: #### C BC #### [facility] [address] [place] [address] Dr. David Magana Urea nitrogen/Creatinine [Mass ratio] 26.3 mg/mg Normal [facility] Comment on above: Performed By: #### C BC #### [facility] [address] [place] [address] Dr. David Magana Covid-19 PCR ([facility])on 06-16 SARS-CoV-2 (COVID-19) RNA SULTANA+probe Ql (Unsp spec) Detected Critically abnormal NOT DETECTED [facility] Comment on above: Result Comment: This test is not yet approved or cleared by the [place] FDA. When there are no FDA-approved or cleared tests available, and other criteria are met, FDA can make tests available under an emergency access mechanism called an Emergency Use Authorization (EUA). The EUA for this test is supported by the [employer] of Health and Human Service's (HHS's) declaration [...] By: #### M ERICK Faith PHOS #### [facility] [address] [place], [place] [address] Dr. David Magana ECHOCARDIO M/2D COMPLETEon 0 07-01-2022 ECHOCARDIO M/2D COMPLETE Patient: NADIR BETH Exam Date: 07/01/2022 : 1940 Gender:M Ordering : DR CLARIBEL CISNEROS M.D. Admission #: [id number] Family : VAN GONZALESBebeto . Order #: [id number] CLICK HERE TO VIEW EXAM ECHOCARDIOGRAM REPORT [...] M.D. on 07/01/2022 at 16:27 Normal [facility] Covid-19 PCR (CVDTB)on SARS-CoV-2 (COVID-19) RNA SULTANA+probe Ql (Unsp spec) Not detected Normal NOT DETECTED [facility] Comment on above: Result Comment: When diagnostic [...] for this test is supported by the [place] of Health and Human Service's declaration that [...] used). Performed By: #### C VDTB #### [facility] [address] [place] [address] Dr. David Magana CREATININE URINEon URINE CREAT 14.70 mg/dL Critically low 20.00-300.00 [facility] Comment on above: Performed By: #### ERICK Jacques, PHOS #### [facility] [address] [place] [address] Dr. David Magana GLYCOHEMOGLOBIN A1Con 2021 ADA RECOMMENDATION SEE BELOW Normal [facility] Comment on above: Result Comment: ADA RECOMMENDED LIMIT 4.0 - 6.0 ADA THERAPEUTIC TARGET < 7.0 ACTION SUGGESTED > 7.0 Performed By: #### A 1C #### [facility] [address] [place] [address] Dr. David Magana Glucose [Mass/Vol] 209 mg/dL Normal [facility] Comment on above: Performed By: #### A 1C #### [facility] [address] [place] [address] Dr. David Magana HbA1c (Bld) [Mass fraction] 8.9 % Critically high 4.5-6.2 [facility] Comment on above: Performed By: #### A 1C #### [facility] [address] [place] [address] Dr. David Magana MAGNESIUMon 06-08-2022 Magnesium [Mass/Vol] 2.3 mg/dL Normal 1.8-2.4 [facility] Comment on above: Performed By: #### M G, BMP, PHOS #### [facility] [address] [place] [address] Dr. David Magana PHOSPHORUSon 06-08-2022 Phosphate [Mass/Vol] 3.5 mg/dL Normal 2.6-4.7 [facility] Comment on above: Performed By: #### M G, BMP, PHOS #### [facility] [address] [place] [address] Dr. David Magana PROF CHEM 8 (BAS METB)on Anion gap [Moles/Vol] 10.6 mmol/L Normal [facility] Comment on above: Performed By: #### M Marcell, BMP, PHOS #### [facility] [address] [place] [address] Dr. David Magana Calcium [Mass/Vol] 9.2 mg/dL Normal 8.5-10.1 [facility] Comment on above: Performed By: #### M Marcell, BMP, PHOS #### [facility] [address] [place] [address] Dr. David Magana Chloride [Moles/Vol] 102 mmol/L Normal 98-107 [facility] Comment on above: Performed By: #### M Marcell BMP, PHOS #### [facility] [address] [place] [address] Dr. David Magana CO2 [Moles/Vol] 30.1 mmol/L Normal 21.0-32.0 [facility] Comment on above: Performed By: #### M G, BMP, PHOS #### [facility] [address] [place] [address] Dr. David Magana Creatinine [Mass/Vol] 1.70 mg/dL Critically high 0.70-1.30 [facility] Comment on above: Performed By: #### M G, BMP, PHOS #### [facility] [address] [place] [address] Dr. David Magana EGFR-AF BERMUDIAN 47 mL/min/1.73m2 Critically low >=60 [facility] Comment on above: Performed By: #### M G, BMP, PHOS #### [facility] [address] [address] [address] David Magana EGFR-NON AF BERMUDIAN 39 mL/min/1.73m2 Critically low >=60 [facility] Comment on above: Performed By: #### M G, BMP, PHOS #### [facility] [address] [address] [address] David Magana Glucose [Mass/Vol] 197 mg/dL Critically high 74-106 [facility] Comment on above: Performed By: #### M G, BMP, PHOS #### [facility] [address] [address] [address] David Magana Potassium [Moles/Vol] 4.7 mmol/L Normal 3.5-5.1 [facility] Comment on above: Performed By: #### M G, BMP, PHOS #### [facility] [address] [address] [address] David Magana Sodium [Moles/Vol] 138 mmol/L Normal 136-145 [facility] Comment on above: Performed By: #### M G, BMP, PHOS #### [facility] [address] [address] [address] David Magana Urea nitrogen [Mass/Vol] 25.0 mg/dL Critically high 7.0-18.0 [facility] Comment on above: Performed By: #### M G, BMP, PHOS #### [facility] [address] [address] [address] David Magana Urea nitrogen/Creatinine [Mass ratio] 14.7 mg/mg Normal [facility] Comment on above: Performed By: #### M G, BMP, PHOS #### [facility] [address] [address] [address] David Magana PROTEIN RAND URINEon 022 UR PROT <5.0 Normal <=11.9 [facility] Comment on above: Performed By: #### C REAU, PROTU #### [facility] [address] [address] [address] David Magana BILIRUBIN CONJUGATED (DIRECT )on 04-28-2022 BILI, CONJUGATED 0.1 mg/dL Normal 0.0-0.2 [facility] Comment on above: Performed By: #### P OCGLUC #### [facility] [address] [place] [address] Dr. David Magana CBC AUTO DIFFon 04-28-2022 BASO # 0.1 103/ul Normal 0.0-0.1 [facility] Comment on above: Performed By: #### C VDTBH #### [facility] [address] [place] [address] Dr. David Magana Basophils/100 WBC (Bld) 0.7 % Normal 0.2-2.0 [facility] Comment on above: Performed By: #### C VDTBH #### [facility] [address] [place] [address] Dr. David Magana EO # 0.5 103/ul Normal 0.0-0.7 [facility] Comment on above: Performed By: #### C VDTBH #### [facility] [address] [place] [address] Dr. David Magana Eosinophils/100 WBC (Bld) 6.7 % Normal 0.9-7.0 [facility] Comment on above: Performed By: #### C VDTBH #### [facility] [address] [place] [address] Dr. David Magana Erythrocyte distribution width (RBC) [Ratio] 13.6 % Normal 11.0-15.0 [facility] Comment on above: Performed By: #### C VDTBH #### [facility] [address] [place] [address] Dr. David Magana Hematocrit (Bld) [Volume fraction] 45.9 % Normal 42.0-54.0 [facility] Comment on above: Performed By: #### C VDTBH #### [facility] [address] [place] [address] Dr. David Magana Hemoglobin (Bld) [Mass/Vol] 14.9 g/dL Normal 14.0-18.0 [facility] Comment on above: Performed By: #### C VDTBH #### [facility] [address] [address] [address] David Magana IG # 0.03 10e3/ul Normal 0.00-0.03 [facility] Comment on above: Performed By: #### C VDTBH #### [facility] [address] [address] [address] David Magana IG % 0.4 % Normal 0.0-0.5 [facility] Comment on above: Performed By: #### C VDTBH #### [facility] [address] [place] [address] Dr. David Magana LYMPH # 1.0 103/ul Critically low 1.2-3.8 [facility] Comment on above: Performed By: #### C VDTBH #### [facility] [address] [place] [address] Dr. David Magana Lymphocytes/100 WBC (Bld) 13.4 % Critically low 20.5-60.0 [facility] Comment on above: Performed By: #### C VDTBH #### [facility] [address] [place] [address] Dr. David Magana MANUAL DIFF REQ NO Normal [facility] Comment on above: Performed By: #### C VDTBH #### [facility] [address] [place] [address] Dr. David Magana MCH (RBC) [Entitic mass] 33.8 pg Normal 25.9-34.0 [facility] Comment on above: Performed By: #### C VDTBH #### [facility] [address] [place] [address] Dr. David Magana MCHC (RBC) [Mass/Vol] 32.5 g/dL Normal 29.9-35.2 [facility] Comment on above: Performed By: #### C VDTBH #### [facility] [address] [place] [address] Dr. David Magana MCV (RBC) [Entitic vol] 104.1 fL Critically high 80.0-94.0 [facility] Comment on above: Performed By: #### C VDTBH #### [facility] [address] [address] [address] David Magana MONO # 0.8 103/ul Normal 0.3-0.8 [facility] Comment on above: Performed By: #### C VDTBH #### [facility] [address] [place] [address] Dr. David Magana Monocytes/100 WBC (Bld) 10.2 % Normal 1.7-12.0 [facility] Comment on above: Performed By: #### C VDTBH #### [facility] [address] [place] [address] Dr. David Magana NEUT # 5.1 103/ul Normal 1.4-6.5 [facility] Comment on above: Performed By: #### C VDTBH #### [facility] [address] [place] [address] Dr. David Magana Neutrophils/100 WBC (Bld) 68.6 % Normal 43.0-75.0 [facility] Comment on above: Performed By: #### C VDTBH #### [facility] [address] [place] [address] Dr. David Magana Platelet mean volume (Bld) [Entitic vol] 11.3 fL Normal 9.5-13.5 [facility] Comment on above: Performed By: #### C VDTBH #### [facility] [address] [place] [address] Dr. David Magana PLT 185 103/ul Normal 150-450 [facility] Comment on above: Performed By: #### C VDTBH #### [facility] [address] [place] [address] Dr. David Magana RBC 4.41 106/ul Critically low 4.70-6.10 [facility] Comment on above: Performed By: #### C VDTBH #### [facility] [address] [place] [address] Dr. David Magana WBC 7.5 103/ul Normal 4.0-11.0 [facility] Comment on above: Performed By: #### C VDTBH #### [facility] [address] [address] [address] David Magana FREE T3on 04-28-2022 FREE T3 2.17 pg/mlL Critically low 2.18-3.98 [facility] Comment on above: Performed By: #### P OCGLUC #### [facility] [address] [address] [address] David Magana LIPID PROFILEon 04-28-2022 CHOL-HDL RATIO NORM SEE BELOW Normal [facility] Comment on above: Result Comment: 3.3 - 4.4 LOW RISK 4.4 - 7.1 AVERAGE RISK 7.1 - 11.0 MODERATE RISK >11.0 HIGH RISK Performed By: #### P OCGLUC #### [facility] [address] [address] [address] David Magana Cholesterol [Mass/Vol] 234 mg/dL Critically high <=200 [facility] Comment on above: Performed By: #### P OCGLUC #### [facility] [address] [address] [address] David Magana Cholesterol in HDL [Mass/Vol] 58 mg/dL Normal 40-60 [facility] Comment on above: Performed By: #### P OCGLUC #### [facility] [address] [address] [address] David Magana Cholesterol in LDL [Mass/Vol] 129.0 mg/dL Normal [facility] Comment on above: Performed By: #### P OCGLUC #### [facility] [address] [address] [address] David Magana Cholesterol.total/Cho lesterol in HDL [Mass ratio] 4.0 {ratio} Normal [facility] Comment on above: Performed By: #### P OCGLUC #### [facility] [address] [address] [address] David Magana HDL NORMAL > or = 60 mg/dl - LO W CARDIOVASCULAR RISK <40 mg/dl - HIGH CARDIOVASCULAR RISK Normal [facility] Comment on above: Performed By: #### P OCGLUC #### [facility] [address] [address] [address] David Magana LDL CALC NORMAL SEE BELOW Normal [facility] Comment on above: Result Comment: <100 mg/dl OPTIMAL 100 - 129 mg/dl NEAR OR ABOVE OPTIMAL 130 - 159 mg/dl BORDERLINE HIGH 160 - 189 mg/dl HIGH >190 mg/dl VERY HIGH Performed By: #### P OCGLUC #### [facility] [address] [address] [address] David Magana Triglyceride [Mass/Vol] 235 mg/dL Critically high <=150 [facility] Comment on above: Performed By: #### P OCGLUC #### [facility] [address] [address] [address] David Magana VLDL CALC 47.0 mg/dL Normal [facility] Comment on above: Performed By: #### P OCGLUC #### [facility] [address] [address] [address] David Magana PROF 14(COMP METB)on 022 Albumin [Mass/Vol] 3.2 g/dL Critically low 3.4-5.0 [facility] Comment on above: Performed By: #### P OCGLUC #### [facility] [address] [address] [address] David Magana Albumin/Globulin [Mass ratio] 0.9 {ratio} Normal [facility] Comment on above: Performed By: #### P OCGLUC #### [facility] [address] [address] [address] David Magana ALP [Catalytic activity/Vol] 77 U/L Normal 46-116 [facility] Comment on above: Performed By: #### P OCGLUC #### [facility] [address] [address] [address] David Magana ALT [Catalytic activity/Vol] 24 U/L Normal 16-63 [facility] Comment on above: Performed By: #### P OCGLUC #### [facility] [address] [address] [address] David Magana Anion gap [Moles/Vol] 13.1 mmol/L Normal [facility] Comment on above: Performed By: #### P OCGLUC #### [facility] [address] [address] [address] David Magana AST [Catalytic activity/Vol] 13 U/L Critically low 15-37 [facility] Comment on above: Performed By: #### P OCGLUC #### [facility] [address] [address] [address] David Magana Bilirubin [Mass/Vol] 0.3 mg/dL Normal 0.2-1.0 [facility] Comment on above: Performed By: #### P OCGLUC #### [facility] [address] [address] [address] David Magana Calcium [Mass/Vol] 8.8 mg/dL Normal 8.5-10.1 [facility] Comment on above: Performed By: #### P OCGLUC #### [facility] [address] [address] [address] David Magana Chloride [Moles/Vol] 106 mmol/L Normal 98-107 [facility] Comment on above: Performed By: #### P OCGLUC #### [facility] [address] [address] [address] David Magana CO2 [Moles/Vol] 27.5 mmol/L Normal 21.0-32.0 [facility] Comment on above: Performed By: #### P OCGLUC #### [facility] [address] [address] [address] David Magana Creatinine [Mass/Vol] 1.62 mg/dL Critically high 0.70-1.30 [facility] Comment on above: Performed By: #### P OCGLUC #### [facility] [address] [address] [address] David Magana EGFR-AF BERMUDIAN 50 mL/min/1.73m2 Critically low >=60 [facility] Comment on above: Performed By: #### P OCGLUC #### [facility] [address] [address] [address] David Magana EGFR-NON AF BERMUDIAN 41 mL/min/1.73m2 Critically low >=60 [facility] Comment on above: Performed By: #### P OCGLUC #### [facility] [address] [address] [address] David Magana Globulin (S) [Mass/Vol] 3.4 g/dL Normal [facility] Comment on above: Performed By: #### P OCGLUC #### [facility] [address] [address] [address] David Magana Glucose [Mass/Vol] 206 mg/dL Critically high 74-106 [facility] Comment on above: Performed By: #### P OCGLUC #### [facility] [address] [address] [address] David Magana Potassium [Moles/Vol] 4.6 mmol/L Normal 3.5-5.1 [facility] Comment on above: Performed By: #### P OCGLUC #### [facility] [address] [address] [address] David Magana Protein [Mass/Vol] 6.6 g/dL Normal 6.4-8.2 [facility] Comment on above: Performed By: #### P OCGLUC #### [facility] [address] [address] [address] David Magana Sodium [Moles/Vol] 142 mmol/L Normal 136-145 [facility] Comment on above: Performed By: #### P OCGLUC #### [facility] [address] [address] [address] David Magana Urea nitrogen [Mass/Vol] 26.0 mg/dL Critically high 7.0-18.0 [facility] Comment on above: Performed By: #### P OCGLUC #### [facility] [address] [address] [address] David Magana Urea nitrogen/Creatinine [Mass ratio] 16.0 mg/mg Normal [facility] Comment on above: Performed By: #### P OCGLUC #### [facility] [address] [address] [address] David Magana T4on 04-28-2022 T4 [Mass/Vol] 7.70 ug/dL Normal 4.50-12.10 [facility] Comment on above: Performed By: #### P OCGLUC #### [facility] [address] [address] [address] David Magana TSHon 04-28-2022 TSH 2.187 uIU/mL Normal 0.358-3.740 [facility] Comment on above: Performed By: #### P OCGLUC #### [facility] [address] [address] [address] David Magana TSH RANGE SEE BELOW Normal [facility] Comment on above: Result Comment: <0.3 4 UIU/ml HYPERTHYROID 0.34-5.60 UIU/ml EUTHYROID >5.60 UIU/ml HYPOTHYROID Performed By: #### P OCGLUC #### [facility] [address] [place] [address] Dr. David Magana Vital Signs Date Time Vital Sign Value Performing Clinician Facility 05-08-2025 16:32-0400 Body height 182.9 cm Winnie Herron PLANNER INTERN Work Phone: [facility] 05-08-2025 16:32-0400 Body mass index (BMI) [Ratio] 25.09 kg/m2 Winnie Herron PLANNER INTERN Work Phone: [facility] 05-08-2025 16:32-0400 Body weight 83.92 kg Winnie Herron PLANNER INTERN Work Phone: [facility] 04-12-2025 11:05-0400 Body height 182.9 cm Blaise Chicas DPM Work Phone: [facility] 04-12-2025 11:05-0400 Body mass index (BMI) [Ratio] 24.95 kg/m2 Blaise Chicas DPM Work Phone: [facility] 04-12-2025 11:05-0400 Body weight 83.46 kg Blaise Chicsa DPM Work Phone: [facility] 04-12-2025 11:05-0400 Respiratory rate 16 /min Blaise Chicas DPM Work Phone: [facility] 04-10-2025 12:58-0400 Body height 182.9 cm Barrie Montoya MD Work Phone: [facility] 04-10-2025 12:58-0400 Body mass index (BMI) [Ratio] 24.95 kg/m2 Barrie Montoya MD Work Phone: [facility] 04-10-2025 12:58-0400 Body weight 83.46 kg Barrie Montoya MD Work Phone: [facility] 03-08-2025 08:56-0400 Body height 182.9 cm Blaise Chicas DPM Work Phone: [facility] 03-08-2025 08:56-0400 Body mass index (BMI) [Ratio] 39.2 kg/m2 Blaise Chicas DPM Work Phone: [facility] 03-08-2025 08:56-0400 Body weight 131.09 kg Blaise Chicas DPM Work Phone: [facility] 03-08-2025 08:56-0400 Respiratory rate 18 /min Blaise Chicas DPM Work Phone: [facility] 12-04-2024 08:44-0500 Diastolic blood pressure 90 mm[Hg] MARQUIS NKANSAH-AMANKRA [facility] 12-04-2024 08:44-0500 Heart rate 78 /min MARQUIS NKANSAH-AMANKRA [facility] 12-04-2024 08:44-0500 Systolic blood pressure 160 mm[Hg] MARQUIS NKANSAH-AMANKRA [facility] 11-30-2024 08:28-0500 Body height 182.9 cm Blaise Chicas DPM Work Phone: [facility] 11-30-2024 08:28-0500 Body mass index (BMI) [Ratio] 39.2 kg/m2 Blaise Chicas DPM Work Phone: [facility] 11-30-2024 08:28-0500 Body weight 131.09 kg Blaise Chicas DPM Work Phone: [facility] 11-30-2024 08:28-0500 Respiratory rate 16 /min Blaise Chicas DPM Work Phone: [facility] 11-02-2024 08:09-0500 Blood Pressure Location MARQUIS NKANSAH-AMANKRA [facility] 11-02-2024 08:09-0500 Diastolic blood pressure 67 mm[Hg] MARQUIS NKANSAH-AMANKRA [facility] 11-02-2024 08:09-0500 Heart rate 65 /min MARQUIS NKANSAH-AMANKRA [facility] 11-02-2024 08:09-0500 Systolic blood pressure 102 mm[Hg] MARQUIS NKANSAH-AMANKRA [facility] 09-14-2024 08:19-0400 Body height 182.9 cm Blaise Chicas DPM Work Phone: [facility] 09-14-2024 08:19-0400 Body mass index (BMI) [Ratio] 39.2 kg/m2 Blaise Chicas DPM Work Phone: [facility] 09-14-2024 08:19-0400 Body weight 131.09 kg Blaise hCicas DPM Work Phone: [facility] 09-14-2024 08:19-0400 Diastolic blood pressure 79 mm[Hg] Blaise Chicas DPM Work Phone: [facility] 09-14-2024 08:19-0400 Heart rate 81 /min Blaise Chicas DPM Work Phone: [facility] 09-14-2024 08:19-0400 Systolic blood pressure 128 mm[Hg] Blaise Chicas DPM Work Phone: [facility] 08-08-2024 10:25-0400 Blood Pressure Location MARQUIS NKANSAH-AMANKRA [facility] 08-08-2024 10:25-0400 Diastolic blood pressure 82 mm[Hg] MARQUIS NKANSAH-AMANKRA [facility] 08-08-2024 10:25-0400 Systolic blood pressure 140 mm[Hg] MARQUIS NKANSAH-AMANKRA [facility] 08-03-2024 08:45-0400 Body height 182.9 cm Blaise Chicas DPM Work Phone: [facility] 08-03-2024 08:45-0400 Body mass index (BMI) [Ratio] 39.2 kg/m2 Blaise Chicas DPM Work Phone: [facility] 08-03-2024 08:45-0400 Body weight 131.09 kg Blaise Chicas DPM Work Phone: [facility] 08-03-2024 08:45-0400 Diastolic blood pressure 82 mm[Hg] Blaise Chicas DPM Work Phone: [facility] 08-03-2024 08:45-0400 Heart rate 75 /min Blaise Chicas DPM Work Phone: [facility] 08-03-2024 08:45-0400 Respiratory rate 18 /min Blaise Chicas DPM Work Phone: [facility] 08-03-2024 08:45-0400 Systolic blood pressure 130 mm[Hg] Blaise Chicas DPM Work Phone: [facility] 08-01-2024 11:24-0400 Body height 182.9 cm Barrie Montoya MD Work Phone: [facility] 08-01-2024 11:24-0400 Body mass index (BMI) [Ratio] 39.2 kg/m2 Barrie Montoya MD Work Phone: [facility] 08-01-2024 11:24-0400 Body weight 131.09 kg Barrie Montoya MD Work Phone: [facility] 08-01-2024 11:24-0400 Diastolic blood pressure 93 mm[Hg] Barrie Montoya MD Work Phone: [facility] 08-01-2024 11:24-0400 Heart rate 73 /min Barrie Montoya MD Work Phone: [facility] 08-01-2024 11:24-0400 Systolic blood pressure 182 mm[Hg] Barrie Montoya MD Work Phone: [facility] 07-20-2024 08:27-0400 Body height 182.9 cm Blaise Chicas DPM Work Phone: [facility] 07-20-2024 08:27-0400 Body mass index (BMI) [Ratio] 26.04 kg/m2 Blaise Chicas DPM Work Phone: [facility] 07-20-2024 08:27-0400 Body weight 87.09 kg Blaise Chicas DPM Work Phone: [facility] 07-20-2024 08:27-0400 Diastolic blood pressure 81 mm[Hg] Blaise Chicas DPM Work Phone: [facility] 07-20-2024 08:27-0400 Heart rate 75 /min Blaise Chicas DPM Work Phone: [facility] 07-20-2024 08:27-0400 Respiratory rate 18 /min Blaise Chicas DPM Work Phone: [facility] 07-20-2024 08:27-0400 Systolic blood pressure 130 mm[Hg] Blaise Chicas DPM Work Phone: [facility] 07-06-2024 08:27-0400 Body height 182.9 cm Blaise Chicas DPM Work Phone: [facility] 07-06-2024 08:27-0400 Body mass index (BMI) [Ratio] 26.04 kg/m2 Blaise Chicas DPM Work Phone: [facility] 07-06-2024 08:27-0400 Body weight 87.09 kg Blaise Chicas DPM Work Phone: [facility] 07-06-2024 08:27-0400 Diastolic blood pressure 81 mm[Hg] Blaise Cihcas DPM Work Phone: [facility] 07-06-2024 08:27-0400 Heart rate 77 /min Blaise Chicas DPM Work Phone: [facility] 07-06-2024 08:27-0400 Systolic blood pressure 128 mm[Hg] Blaise Chicas DPM Work Phone: [facility] 10-14-2023 14:33-0500 Diastolic blood pressure 70 mm[Hg] [facility]-14[facility] 14:33-0500 Mean blood pressure 93 mm[Hg] [facility] 10-14-2023 14:33-0500 Systolic blood pressure 138 mm[Hg] [facility] 10-14-2023 14:18-0500 Blood Pressure Location [facility] 10-14-2023 14:18-0500 Body temperature 97.88 [degF] [facility] 10-14-2023 14:18-0500 Diastolic blood pressure 73 mm[Hg] [facility] 10-14-2023 14:18-0500 Heart rate 91 /min [facility] 10-14-2023 14:18-0500 Systolic blood pressure 143 mm[Hg] [facility] 10-01-2023 12:13-0500 Diastolic blood pressure 66 mm[Hg] [facility] 10-01-2023 12:13-0500 Mean blood pressure 104 mm[Hg] [facility] 10-01-2023 12:13-0500 Systolic blood pressure 179 mm[Hg] [facility] 10-01-2023 12:10-0500 Blood Pressure Location [facility] 10-01-2023 12:10-0500 Body temperature 98.42 [degF] [facility] 10-01-2023 12:10-0500 Diastolic blood pressure 77 mm[Hg] [facility] 10-01-2023 12:10-0500 Heart rate 81 /min [facility] 10-01-2023 12:10-0500 Respiratory rate 14 /min [facility] 10-01-2023 12:10-0500 Systolic blood pressure 168 mm[Hg] [facility] 06-10-2023 10:43-0400 Diastolic blood pressure 64 mm[Hg] [facility] 06-10-2023 10:43-0400 Heart rate 76 /min [facility] 06-10-2023 10:43-0400 Respiratory rate 16 /min [facility] 06-10-2023 10:43-0400 SaO2% (BldA) [Mass fraction] 95 % [facility] 06-10-2023 10:43-0400 Systolic blood pressure 121 mm[Hg] [facility] 04-13-2023 14:19-0400 Diastolic blood pressure 70 mm[Hg] [facility] 04-13-2023 14:19-0400 Mean blood pressure 95 mm[Hg] [facility] 04-13-2023 14:19-0400 Systolic blood pressure 146 mm[Hg] [facility] 04-13-2023 14:15-0400 Blood Pressure Location [facility] 04-13-2023 14:15-0400 Body temperature 97.7 [degF] [facility] 04-13-2023 14:15-0400 Diastolic blood pressure 87 mm[Hg] [facility] 04-13-2023 14:15-0400 Heart rate 70 /min Nereyda Patricia [facility] 04-13-2023 14:15-0400 Systolic blood pressure 150 mm[Hg] Nereyda Gomez [facility] 06-09-2022 10:02-0400 Body temperature 96.98 [degF] Nereyda Gomez [facility] 06-09-2022 10:02-0400 Diastolic blood pressure 75 mm[Hg] Nereyda Gomez [facility] 06-09-2022 10:02-0400 Heart rate 72 /min Nereyda Gomez [facility] 06-09-2022 10:02-0400 SaO2% (BldA) [Mass fraction] 97 % Nereyda Gomez [facility] 06-09-2022 10:02-0400 Systolic blood pressure 139 mm[Hg] Nereyda Donatoz [facility] 05-11-2022 11:30-0400 Diastolic blood pressure 102 mm[Hg] Bender SALAM [facility] 05-11-2022 11:30-0400 Heart rate 86 /min Bender SALAM [facility] 05-11-2022 11:30-0400 Respiratory rate 15 /min Bender SALAM [facility] 05-11-2022 11:30-0400 SaO2% (BldA) [Mass fraction] 95 % Bender SALAM [facility] 05-11-2022 11:30-0400 Systolic blood pressure 172 mm[Hg] Bender SALAM [facility] 05-11-2022 11:15-0400 Diastolic blood pressure 88 mm[Hg] Bender SALAM [facility] 05-11-2022 11:15-0400 Heart rate 86 /min Bender SALAM [facility] 05-11-2022 11:15-0400 Respiratory rate 18 /min Bender SALAM [facility] 05-11-2022 11:15-0400 SaO2% (BldA) [Mass fraction] 97 % Bender SALAM [facility] 05-11-2022 11:15-0400 Systolic blood pressure 170 mm[Hg] Bender SALAM [facility] 05-11-2022 11:10-0400 Diastolic blood pressure 108 mm[Hg] Bender SALAM [facility] 05-11-2022 11:10-0400 Heart rate 85 /min Bender SALAM [facility] 05-11-2022 11:10-0400 Respiratory rate 14 /min Bender SALAM [facility] 05-11-2022 11:10-0400 SaO2% (BldA) [Mass fraction] 97 % Bender SALAM [facility] 05-11-2022 11:10-0400 Systolic blood pressure 157 mm[Hg] Bender SALAM [facility] 05-11-2022 11:02-0400 Body temperature 97.34 [degF] Bender SALAM [facility] 05-11-2022 10:27-0400 Blood Pressure Location Benderantoinette MARKAM [facility] 05-11-2022 10:23-0400 Blood Pressure Location Napoleon MARKAM [facility] 05-11-2022 10:23-0400 Body temperature 98.24 [degF] Napoleon MARKAM [facility] 03-31-2022 09:53-0400 Blood Pressure Location Nereyda Gomez [facility] 03-31-2022 09:53-0400 Body temperature 97.7 [degF] Nereyda Gomez [facility] 03-31-2022 09:53-0400 Diastolic blood pressure 72 mm[Hg] Nereyda Gomez [facility] 03-31-2022 09:53-0400 Heart rate 73 /min Nereyda Gomez [facility] 03-31-2022 09:53-0400 SaO2% (BldA) [Mass fraction] 96 % Nereyda Gomez [facility] 03-31-2022 09:53-0400 Systolic blood pressure 129 mm[Hg] Nereyda Joyametz [facility] Encounters Encounter Date Encounter Type Care Provider Facility Start: 06-11-2025 ambulatory SANTIAGO Torres acility:[facility] Start: 05-08-2025 End: 05-08-2025 Bamboo flowsheet Winnie Herron NP Work Phone: [facility] Start: 05-08-2025 End: 05-08-2025 Bamboo flowsheet Winnie Herron PLANNER INTERN Work Phone: [facility] Start: 05-08-2025 End: 05-08-2025 Office outpatient visit 40 minutes Winnie Herron PLANNER INTERN Work Phone: [facility] Comment on above: Benign essential mikel mor (Primary Dx); Neurogenic pain; Sequelae of cerebral infarction; Cervical paraspinal muscle spasm; JOSIAH (obstructive sleep apnea); Carotid stenosis, bilateral; Polyneuropathy Start: 04-30-2025 End: 04-30-2025 ambulatory [facility] Start: 04-14-2025 End: 04-18-2025 Evaluation and management of inpatient DO Ronobir R KARTIK [place] Start: 04-14-2025 End: 04-16-2025 Emergency department patient visit [facility] Start: 04-14-2025 ambulatory [facility] Start: 04-14-2025 Emergency department patient visit Rivas Beaverssushma Facility[place] Start: 04-14-2025 End: 04-18-2025 Evaluation and management of inpatient Ronobir R KARTIK [facility] Start: 04-12-2025 End: 04-12-2025 Bamboo flowsheet Blaise Chicas DPM Work Phone: [facility] Start: 04-12-2025 End: 04-12-2025 Bamboo flowsheet lBaise Chicas DPM Work Phone: [facility] Start: 04-12-2025 End: 04-12-2025 Patient encounter procedure Blaise Chicas DPM Work Phone: [facility] Comment on above: Verruca plantaris (P rimary Dx); Foot pain, right; Diabetes mellitus due to underlying condition with diabetic polyneuropathy, unspecified whether intermediate insulin use (CMS/HCC); Pain due to onychomycosis of toenails of both feet Start: 04-12-2025 End: 04-12-2025 ambulatory BLAISE CHICAS Not Available Start: 04-10-2025 End: 04-10-2025 Bamboo flowspatrick Montoya MD Work Phone: [facility] Start: 04-10-2025 End: 04-10-2025 Bamboo flowspatrick Montoya MD Work Phone: [facility] Start: 04-10-2025 End: 04-10-2025 Office outpatient visit 25 minutes Barrie Montoya MD Work Phone: [facility] Comment on above: Benign essential mikel mor (Primary Dx); Neurogenic pain; Sequelae of cerebral infarction; Cervical paraspinal muscle spasm; JOSIAH (obstructive sleep apnea); Carotid stenosis, bilateral Start: 04-10-2025 End: 04-10-2025 ambulatory BARRIE MONTOYA Not Available Start: 03-12-2025 End: 03-12-2025 ambulatory [facility] Start: 03-08-2025 End: 03-08-2025 Bamboo flowspatrick Chicas DPM Work Phone: [facility] Start: 03-08-2025 End: 03-08-2025 Bamboo tarik Chicas DPM Work Phone: [facility] Start: 03-08-2025 End: 03-08-2025 Postop follow up visit related to original px Blaise Chicas DPM Work Phone: [facility] Comment on above: Verruca plantaris (P rimary Dx); Foot pain, right; Diabetes mellitus due to underlying condition with diabetic polyneuropathy, unspecified whether intermediate insulin use (CMS/HCC); Pain due to onychomycosis of toenails of both feet Start: 03-08-2025 End: 03-08-2025 ambulatory BLAISE CHICAS Not Available Start: 02-28-2025 End: 02-28-2025 ambulatory [facility] Start: 02-15-2025 ambulatory [facility] Start: 02-14-2025 End: 02-17-2025 Emergency department patient visit [facility] Start: 01-03-2025 End: 01-03-2025 ambulatory RUTH[facility] Start: 12-14-2024 End: 12-14-2024 ambulatory [facility] Start: 12-04-2024 End: 12-04-2024 ambulatory MARQUIS ADRIAN [place] [place] Start: 12-04-2024 End: 12-04-2024 Patient encounter procedure MARQUIS ADRIAN [facility] Start: 11-30-2024 End: 11-30-2024 Bamboo [...] underlying condition with diabetic polyneuropathy, unspecified whether intermediate insulin use ([facility]); Pain due to onychomycosis of toenails of both feet Start: 11-30-2024 End: 11-30-2024 ambulatory BLAISE CHICAS Not Available Start: 11-06-2024 End: 11-06-2024 ambulatory Mejia SINGH Facility:[facility] [place] Start: 11-06-2024 End: 11-06-2024 Patient encounter procedure Mejia SINGH [facility] [place] Start: 11-02-2024 End: 11-02-2024 ambulatory MARQUIS NKANSAH-AMANKRA Facility:[facility] Start: 11-02-2024 End: 11-02-2024 Patient encounter procedure MARQUIS NKANSAH-AMANKRA [facility] Start: 10-30-2024 End: 10-30-2024 ambulatory Mejia SINGH Facility:[id number] Start: 10-25-2024 End: 10-25-2024 ambulatory MARQUIS NKANSAH-AMANKRA Facility:[facility] Start: 10-23-2024 End: 10-23-2024 ambulatory MARQUIS NKANSAH-AMANKRA [place] Start: 10-23-2024 End: 10-23-2024 Patient encounter procedure MARQUIS NKANSAH-AMANKRA [facility] Start: 10-02-2024 End: 10-02-2024 ambulatory MARQUIS NKANSAH-AMANKRA Facility:[facility] Start: 09-25-2024 End: 09-25-2024 ambulatory MARQUIS NKANSAH-AMANKRA [facility] Start: 09-25-2024 End: 09-25-2024 Patient encounter procedure MARQUIS NKANSAH-AMANKRA [facility] Start: 09-14-2024 End: 09-14-2024 Bamboo flowsheet Blaise Chicas DPM Work Phone: [facility] Start: 09-14-2024 End: 09-14-2024 Bamboo flowsheet Blaise Chicas DPM Work Phone: [facility] Start: 09-14-2024 End: 09-14-2024 Patient encounter procedure Blaise Chicas DPM Work Phone: [facility] Comment on above: Verruca plantaris (P rimary Dx); Foot pain, right; Diabetes mellitus due to underlying condition with diabetic polyneuropathy, unspecified whether intermediate insulin use ([facility]); Pain due to onychomycosis of toenails of [...] Not Available Start: 08-22-2024 ambulatory MARQUIS ARLETH-AMANKRA Facility:[facility] Start: 08-17-2024 [facility] Start: 08-14-2024 End: 08-17-2024 Telephone encounter Barrie Montoya MD Work Phone: [facility] Start: 08-08-2024 End: 08-08-2024 [facility] Start: 08-08-2024 End: 08-08-2024 Patient encounter procedure MARQUIS ROANEELAEMMY-AMJOVANIRA [facility] Start: 08-03-2024 End: 08-03-2024 Bamboo flowsheet Blaise Chicas DPM Work Phone: [facility] Start: 08-03-2024 End: 08-03-2024 Bamboo flowsheet Blaise Chicas DPM Work Phone: [facility] Start: 08-03-2024 End: 08-03-2024 Patient encounter procedure Blaise Chicas DPM Work Phone: [facility] Comment on above: Verruca plantaris (P rimary Dx); Foot pain, right; Xerosis cutis Start: 08-03-2024 End: 08-03-2024 ambulatory BLAISE CHICAS Not Available Start: 08-01-2024 End: 08-01-2024 Bamboo flowsheet Barrie Montoya MD Work Phone: [facility] Start: 08-01-2024 End: 08-01-2024 Bamboo flowsheet Barrie Montoya MD Work Phone: [facility] Start: 08-01-2024 End: 08-01-2024 Office outpatient visit 25 minutes Barrie Montoya MD Work Phone: [facility] Comment on above: Neurogenic pain (Jyothi kervin Dx); Benign essential tremor Start: 08-01-2024 End: 08-01-2024 ambulatory BARRIE MONTOYA Not Available Start: 07-20-2024 End: 07-20-2024 Bamboo flowsheet Blaise Chicas DPM Work Phone: [facility] Start: 07-20-2024 End: 07-20-2024 Bamboo flowsheet Blaise Chicas DPM Work Phone: [facility] Start: 07-20-2024 End: 07-20-2024 Patient encounter procedure Blaise Chicas DPM Work Phone: [facility] Comment on above: Verruca plantaris (P rimary Dx); Foot pain, right; Xerosis cutis Start: 07-20-2024 End: 07-20-2024 ambulatory BLAISE CHICAS Not Available Start: 07-06-2024 End: 07-06-2024 Bamboo flowsheet Blaise Chicas DPM Work Phone: [facility] Start: 07-06-2024 End: 07-06-2024 Bamboo flowsheet Blaise Chicas DPM Work Phone: [facility] Start: 07-06-2024 End: 07-06-2024 Office outpatient visit 15 minutes Blaise Chicas DPM Work Phone: [facility] Comment on above: Xerosis cutis (Prima ry Dx); Verruca plantaris; Foot pain, right; Diabetes mellitus due to underlying condition with diabetic polyneuropathy, unspecified whether intermediate insulin use ([facility]); Onychomycosis; Toe pain, bilateral Start: 07-06-2024 End: 07-06-2024 ambulatory BLAISE CHICAS Not Available Start: 07-05-2024 End: 07-05-2024 [facility] Start: 06-07-2024 End: 06-07-2024 ambulatory RUTH[facility] Start: 06-05-2024 End: 06-05-2024 [facility] Start: 06-01-2024 End: 06-01-2024 ambulatory BLAISE CHICAS Not Available Start: 04-20-2024 End: 04-20-2024 ambulatory BLAISE CHICAS Not Available Start: 10-14-2023 End: 10-14-2023 Patient encounter procedure Nereyda Gomez [facility] Start: 10-01-2023 End: 10-01-2023 Patient encounter procedure Nereyda Gomez [facility] Start: 10-01-2023 End: 10-01-2023 Patient encounter procedure Nereyda Gomez [facility] Start: 09-13-2023 End: 09-13-2023 Patient encounter procedure Nereyda Gomez [facility] Start: 06-10-2023 End: 06-10-2023 Patient encounter procedure Nereyda Gomez [facility] Start: 04-15-2023 End: 04-15-2023 Lab Drop off Nereyda Gomez [facility] Start: 04-13-2023 End: 04-13-2023 Patient encounter procedure Nereyda Gomez [facility] Start: 03-24-2023 End: [...] End: 06-09-2022 Patient encounter procedure Nereyda Gomez [facility] Start: 06-08-2022 End: 06-09-2022 ambulatory GAMALIEL DALEY Facility:[facility] Start: 05-11-2022 End: 05-11-2022 Patient encounter procedure Napoleon NOVA [facility] Start: 04-28-2022 End: 04-29-[address] VAN YOUSSEF . Facility:[facility] Start: 03-31-2022 End: 03-31-2022 Patient encounter procedure Nereyda Gomez [facility] Start: 2019 End: 02-07-2019 Patient encounter procedure DEFAULT PHYSICIAN Facility:[facility] Procedures Date Procedure Procedure Detail Performing [...] B [address] [place] [address] Barrie Montoya MD [address] [facility] [address] [address] [facility] Start: 09-11-2025 End: 09-11-2025 Patient encounter procedure 09/11/2025 1:15 PM EDT Office Visit [facility] [address] [place] [address] Rodney Joy MD [address] [place] [address] [facility] Start: 08-23-2025 End: 08-23-2025 Patient encounter procedure 08/23/2025 10:50 AM EDT Office Visit [facility] [address] [place] [address] Rodney Joy MD [address] [place] [address] [facility] Start: 07-10-2025 End: 07-10-2025 Patient encounter procedure 07/10/2025 10:30 AM EDT Office Visit [facility] [address] [place] [address] Barrie Montoya MD [address] [facility] [address] [address] [facility] Start: 06-21-2025 End: 06-21-2025 Patient encounter procedure 06/21/2025 10:40 AM EDT Office Visit [facility] [address] [facility] [address] [place] [address] Blaise Chicas, DPM [address] [facility] [address] [place] [address] [facility] Start: 05-08-2025 End: 05-08-2025 Patient encounter procedure 05/08/2025 2:00 PM EDT Office Visit [facility] [address] [facility] [address] [place] [address] Winnie Herron, PLANNER INTERN [address] [place] [phone] Arrived [facility] Comment on above: Arrived Start: 04-12-2025 End: 04-12-2025 Patient encounter procedure [facility] Comment on above: Verruca plantaris (P rimary Dx); Foot pain, right; Diabetes mellitus due to underlying condition with diabetic polyneuropathy, unspecified whether lens maker insulin use (CMS/HCC); Pain due to onychomycosis of toenails of both feet Start: 03-08-2025 End: 03-08-2025 Patient encounter procedure 03/08/2025 9:20 AM EDT Office Visit [facility] [address] [facility] [address] [place] [phone] Blaise Chicas, DPM [address] [address] Verruca plantaris (Primary Dx); Foot pain, right; Diabetes mellitus due to underlying condition with diabetic polyneuropathy, unspecified whether intermediate insulin use (CMS/HCC); Pain due to onychomycosis of toenails of both feet [facility] Comment on above: Verruca plantaris (P rimary Dx); Foot pain, right; Diabetes mellitus due to underlying condition with diabetic polyneuropathy, unspecified whether intermediate insulin use (CMS/HCC); Pain due to onychomycosis of toenails of both feet Start: 02-15-2025 End: 02-15-2025 Patient encounter procedure 02/15/2025 8:40 AM EDT Office Visit [facility] [address] [facility] [address] [place] [phone] Blaise Chicas, DPM [address] [address] [facility] Start: 11-30-2024 End: 11-30-2024 Patient encounter procedure [facility] Comment on above: Verruca plantaris (P rimary Dx); Foot pain, right; Diabetes mellitus due to underlying condition with diabetic polyneuropathy, unspecified whether lens maker insulin use (CMS/HCC); Pain due to onychomycosis of toenails of both feet Start: 10-10-2024 End: 10-10-2024 Patient encounter procedure 10/10/2024 10:45 AM EST Office Visit [facility] [address] [facility] [address] [place] [phone] Barrie Montoya MD [address] [address] [facility] Start: 09-14-2024 End: 09-14-2024 Patient encounter procedure [facility] Comment on above: Verruca plantaris (P rimary Dx); Foot pain, right; Diabetes mellitus due to underlying condition with diabetic polyneuropathy, unspecified whether lens maker insulin use ([facility]); Pain due to onychomycosis of toenails of both feet Start: 08-24-2024 End: 08-24-2024 Patient encounter procedure [facility] Comment on above: Arrived Start: 08-03-2024 End: 08-03-2024 Patient encounter procedure [facility] Comment on above: Verruca plantaris (P rimary Dx); Foot pain, right; Xerosis cutis Start: 08-01-2024 End: 08-01-2024 Patient encounter procedure 08/01/2024 1:30 PM EDT Office Visit [facility] [address] [facility] [address] [place] [phone] Barrie Montoya MD [address] [id number] [facility] Start: 08-01-2024 End: 08-01-2024 Patient encounter procedure 08/01/2024 11:30 AM EDT Office Visit [facility] [address] [facility] [address] [place] [address] Barrie Montoya MD [address] [facility] [address] [place] [address] [facility] Comment on above: Arrived Start: 07-20-2024 End: 07-20-2024 Patient encounter procedure [facility] Comment on above: Verruca plantaris (P rimary Dx); Foot pain, right; Xerosis cutis Start: 07-16-2024 Influenza vaccination Influenza Vacc ine (#1) [facility] Start: 07-06-2024 End: 07-06-2024 Patient encounter procedure 07/06/2024 8:40 AM EDT Office Visit [facility] [address] [facility] [address] [place] [address] Blaise Chicas DPM [address] [facility] [address] [place] [address] Verruca plantaris (Primary Dx); Foot pain, right; Diabetes mellitus due to underlying condition with diabetic polyneuropathy, unspecified whether intermediate insulin use ([facility]); Onychomycosis; Toe pain, bilateral; Xerosis cutis [facility] Comment on above: Verruca plantaris (P rimary Dx); Foot pain, right; Diabetes mellitus due to underlying condition with diabetic polyneuropathy, unspecified whether lens maker insulin use ([facility]); Onychomycosis; Toe pain, bilateral; Xerosis cutis Immunizations Immunization Date Immunization Notes Care Provider [facility] 08-20-2023 influenza virus vaccine, unspecified formulation Blaise Chicas DPM Work Phone: [facility] 10-21-2022 SARS-CoV-2 (COVID-19 ) [id number] Nereyda Patricia [facility] Comment on above: Result Comment: 2022: [id number] 08-26-2021 SARS-CoV-2 (COVID-19 ) mRNA BNT-162y5 vax Nereydasergio JoyaPatricia [facility] 01-01-2021 SARS-CoV-2 (COVID-19 ) mRNA BNT-162b2 vax Nereyda Patricia [facility] 12-09-2020 SARS-CoV-2 (COVID-19 ) mRNA BNT-162e5 vax Nereydasergio JoyaPatricia [facility] 08-27-2020 influenza virus vaccine, unspecified formulation Nereyda Patricia [facility] 08-16-2017 pneumococcal conjugate vaccine, 13 valent Nereydasergio JoyaPatricia [facility] 08-05-2017 influenza, unspecified formulation Nereyda Patricia [facility] 09-20-2015 zoster vaccine, live [facility] NEGATED: Highlighted row has not occurred!10-13-2023 influenza virus vaccine, unspecified formulation Nereyda Patricia [facility] NEGATED: Highlighted row has not occurred!09-29-2023 influenza virus vaccine, unspecified formulation Nereyda Patricia [facility] Payers Date Payer Category Payer Private Health Insurance [id number] 2022 Unknown 2005 Unknown [id number] 2004 Medicare [id number] 1959 Medicare [id number] 1939 Unknown [id number] 2.16.8 40.1.850852.3.579.2.647 1939 Unknown [id number] 2.16.84 0.1.257805.3.579.2.593 1939 Unknown [id number] 2.16.84 0.1.482656.3.579.2.593 1939 Unknown [id number] 2.16.84 0.1.906152.3.579.2.593 1939 Unknown [id number] 2.16.84 0.1.182773.3.579.2.593 1939 Unknown [id number] 2.16.84 0.1.402710.3.579.2.593 1939 Unknown [id number] 2.16.84 0.1.453627.3.579.2.593 1939 Unknown [id number] 2.16.84 0.1.874374.3.579.2.593 1939 Unknown [id number] 2.16.84 0.1.273124.3.579.2.593 1939 Unknown [id number] 2.16.84 0.1.719753.3.579.2.593 1939 Unknown [id number] 2.16.84 0.1.934452.3.579.2.593 1939 Unknown [id number] 2.16.84 0.1.727357.3.579.2.593 1939 Unknown [id number] 2.16.84 0.1.055423.3.579.2.1259 1939 Unknown [id number] 2.16.84 0.1.383904.3.579.2.1259 1939 Unknown [id number] 2.16.84 0.1.491568.3.579.2.1259 1939 Unknown [id number] 2.16.84 0.1.775527.3.579.2.1259 1939 Unknown [id number] 2.16.84 0.1.881380.3.579.2.1259 1939 Unknown [id number] 2.16.84 0.1.073048.3.579.2.1259 1939 Unknown [id number] 2.16.84 0.1.884628.3.579.2.1259 1939 Unknown [id number] 2.16.84 0.1.348825.3.579.2.125 1939 Unknown [id number] 2.16.84 0.1.950927.3.579.2.9 1939 Unknown [id number] 2.16.84 0.1.824600.3.579.2.125 1939 Unknown [id number] 2.16.84 0.1.341456.3.579.2.1259 1939 Unknown [id number] 2.16.84 0.1.327241.3.579.2.1258 1939 Unknown [id number] 2.16.8 40.1.053649.3.579.2.727 1939 Unknown [id number] 2.16.8 40.1.276054.3.579.2.72 1939 Unknown [id number] 2.16.8 40.1.093845.3.579.2.72 1939 Unknown [id number] 2.16.8 40.1.724644.3.579.2.727 1939 Unknown [id number] 2.16.8 40.1.334207.3.579.2.72 1939 Unknown [id number] 2.16.8 40.1.289032.3.579.2.72 1939 Unknown [id number] 2.16.8 40.1.753771.3.579.2.727 1939 Unknown [id number] 2.16.8 40.1.359466.3.579.2.727 1939 Unknown [id number] 2.16.8 40.1.456150.3.579.2.727 1939 Unknown [id number] 2.16.8 40.1.490973.3.579.2.727 1939 Unknown [id number] 2.16.8 40.1.206587.3.579.2.727 1939 Unknown [id number] 2.16.8 40.1.270638.3.579.2.727 1939 Unknown [id number] 2.16.8 40.1.511684.3.579.2.727 1939 Unknown [id number] 2.16.8 40.1.793455.3.579.2.727 1939 Unknown [id number] 2.16.8 40.1.770055.3.579.2.727 1939 Unknown [id number] 2.16.8 40.1.544162.3.579.2.727 1939 Unknown [id number] 2.16.8 40.1.777298.3.579.2.727 1939 Unknown [id number] 2.16.8 40.1.561519.3.579.2.727 1939 Unknown [id number] 2.16. 840.1.362138.3.579.2.1286 1939 Unknown [id number] 2.16. 840.1.278152.3.579.2.1286 1939 Unknown [id number] 2.16. 840.1.005158.3.579.2.1286 1939 Unknown [id number] 2.16. 840.1.422737.3.579.2.1286 1939 Unknown [id number] 2.16. 840.1.569542.3.579.2.1286 1939 Unknown [id number] 2.16. 840.1.977387.3.579.2.1286 1939 Unknown [id number] 2.16. 840.1.344620.3.579.2.1286 1939 Unknown [id number] 2.16. 840.1.452678.3.579.2.1286 1939 Unknown [id number] 2.16. 840.1.463898.3.579.2.1286 1939 Unknown [id number] 2.16.8 40.1.226303.3.579.2.727 Social History Date Type Detail Facility Start: 03-31-2022 End: 08-24-2024 Tobacco smoking status Ex-smoker (finding) [facility] Tobacco smoking status Never [facility] Start: 08-24-2024 End: 04-12-2025 Sex Assigned At Male [facility] Start: 08-24-[address] [facility] Start: [...] of Social function [facility] Sexual Orientation [facility] Start: 02-26-2010 Sex Male (finding) [facility] Functional Status Date Assessment Result Facility 12-04-2024 Functional Status N/A [facility] 11-02-2024 Functional Status N/A [facility] 10-23-2024 Functional Status N/A [facility] 09-25-2024 Functional Status N/A [facility] 08-08-2024 Functional Status N/A [facility] 10-14-2023 Functional Status N/A [facility] 10-01-2023 Functional Status No [facility] 04-13-2023 Functional Status N/A [facility] 06-09-2022 Functional Status N/A [facility] 05-11-2022 Functional Status N/A [facility] Clinical Notes 03-31-2022 to 05-08-2025 Winnie Herron [...] titration study Managed by Dr John in [place] Associated Problem(s): Carotid stenosis, bilateral Plan redo US carotids 2026. Associated Problem(s): Polyneuropathy (Continue current regimen.) Images from the original note were not included. Outpatient Progress Note Prev Appt: Visit date not found No chief complaint on file. Appointment Note -- FU ([facility] Patient is here today for post stroke [...] titration study Managed by Dr John in [place] Carotid stenosis, bilateral Plan redo US carotids [...] Failed Semeiology Circadian Noct oxim PSG _ ([place]) - _ PAPT ([place]) - AHI=8.1 @ 31/10 (max pressure) MSLT [...] UBOs Tx ASA AEs Hx Recent adm [place] for confusion. Now baseline. Images rev'd. No clear cognitive decline. Denies forgetting names, leaving tools/stove on, getting lost, etc. Onset Semeiology Imaging MR brain (02/2025, [place]) - rev'd with pt - no report sent - on my review, atrophy mod-sev, 8-10 UBOs, most tiny, 2 mod incl R fro & R splenium CC MRA head (02/2025, [place]) - no stenoses MRA neck (02/2025, [place]) - no stenoses, dom R vert US carotids (02/2025, [place]) - < 50% B by velocity, but mod plaque poss causing stenosis Testing Surgery Failed Dx L BASAL GANGLIA STROKE/WMD/ATROPHY Tx (Continue ASA, Xeralto ?, statin.) AEs Hx Onset 27078 AMS and garbled speech Semeiology [place] [facility] and MRI showed stroke ? Subacute. Eliquis changed to Xeralto. DC to [facility] for Skilled therapy. Imaging CT Head (04/2025 [facility] 8mm hypodensity in left caudate nucleus MRI Brain (04/2025 [facility] Subacute left basal ganglia ischemia, mild WMD, moderate atrophy CTA H/N (04/2025 [facility] 50% ICA stenosis B. Moderate M1 right MCA stenosis Testing Echo (04/2025 [facility] EF 65-70%, Aortic sclerosis, severe PHT RSVP [...] encounter medications on file as of 05/08/2025. [facility] Neurology ? [address] ? [place], [place] [address] ? ? fax Neurology ? Clinical Neurophysiology ? Epilepsy ? Sleep Disorders ? Clinical Informatics documented in this encounter [facility] 04-30-2025 Note AL Cardiology - [facility] Subjective Nadir Beth is a 85 y.o. year old male patient being seen for follow up CVA. Patient was in [place] for 4 days. Patient complains of HERNANDEZ and leg swelling, high blood sugars. Patient is at the [facility] for rehab. Patient Active Problem List Diagnosis [...] diuretic therapy. He was admitted to the [facility] in August 2022 due to hyponatremia, hyperkalemia and acute kidney injury, leukocytosis secondary to COVID-19 causing dehydration. I saw him on 05/24/2023 and the office and he had significant evidence of volume overload by exam and echocardiogram. I intensified his diuretic regimen. He ended up getting admitted to the [facility] with acute heart failure exacerbation and underwent [...] On 02/14/2025 he was admitted to the [facility] with altered mental status. brain MRI showed multiple infarcts. He was seen by cardiology consult and Eliquis was changed to Xarelto. He then underwent a transesophageal echocardiogram that showed no evidence of intra cardiac thrombi. The aortic valve stenosis appeared to be severe. He was seen in the emergency room at the [facility] on 03/08/2025 with chest pain episode. He ruled out for myocardial infarction and was discharged. I last saw him on 03/12/2025 and decided to proceed with cardiac catheterization as part of his workup for aortic valve replacement. The procedure is scheduled for May 10, 2025. However in the interim he was admitted on 04/14/2025 to [facility] with apparent acute cerebrovascular accident. MRI showed possible small acute/subacute infarct. The clinical presentation was that of inability to speak. Relatively quickly. He was discharged back to rehab at the [facility] (more content not included)... [facility] 04-30-2025 Note Discharge Summary Admission and Discharge Information Admit Date/Time:04/14/2025 19:37 Admitting Physician - Layne VERDUGO DO Consulting Physician - [facility] Wound, XXXX Admitting Diagnoses: Anxiety, 04/18/2025 Discharge [...] at discharge. Patient was accepted to the [facility] which patient will transfer there [...] Discharge Disposition Discharge To, Anticipated II - [facility] Discharged to - Other: [facility] [place] Discharge Diet Discharge Diet(s): Calorie Controlled- 1800 [...] Flomax, 0.4 m (more content not included)... [facility] Comment on above: Result [...] deep vein thrombosis (DVT) prophylaxis (Z79.899: Other lens maker (current) drug therapy) Resume Xarelto 11. History [...] sclera clear E (more content not included)... [facility] Comment on above: Result [...] Locations R1: This test was performed at: [facility], [address] [place] [address], [address] [place] [address], [address] [place] [address] Comment on above: Performed By: #### 1 [id number] #### [facility] [address] [place] [address] 04-22-2025 Note Microbiology PROCEDURE: Blood Culture Charcoal [R1] SOURCE: Blood BODY SITE: Hand R COLLECTED DATE/TIME: 04/14/2025 18:04 EDT RECEIVED DATE/TIME: 04/14/2025 18:41 EDT START DATE/TIME: 04/14/2025 18:41 EDT FREE TEXT SOURCE: Indu Slaughter, Rivas Griggs M.D., Astrit H FINAL REPORTS Final Report [] Verified Date/Time: 04/21/2025 21:00 EDT No growth at 7 days. Performing Locations R1: This test was performed at: [facility], [address] [place] [address], [address] [place] [address], [address] [place] [address] Comment on above: Performed By: #### 1 [id number] #### [facility] [address] [place] [address] 04-21-2025 Note Microbiology PROCEDURE: Blood Culture Charcoal [...] Locations R1: This test was performed at: [facility], [address] [place] [address], [id number] [place] [address], [facility] Comment on above: Performed By: #### 1 [id number] #### [facility] [address] [place] [address] 04-21-2025 Note Microbiology PROCEDURE: Blood Culture Charcoal [...] Locations R1: This test was performed at: [facility], [address] [place] [address], [id number] [place] [address], [facility] Comment on above: Performed By: #### 1 [id number] #### [facility] [address] [place] [address] 04-18-2025 Note GetWell Understands Education Yes GetWell Education Video Statins: Should You Take Them to Lower Your Risk? GetWell Learning Participants Patient [facility] 04-18-2025 Note GetWell Education Vi maria guadalupe After a Stroke: Your Self-Care Plan GetWell Learning Participants Patient GetWell Understands Education Yes [facility] 04-18-2025 Note GetWell Understands Education Yes GetWell Education Video After a Stroke: Taking an Antiplatelet [employer] Learning Participants Patient [facility] 04-18-2025 Note GetWell Education Vi maria guadalupe After a Stroke: Taking an Antiplatelet [employer] Learning Participants Patient GetWell Understands Education Yes [facility] 04-18-2025 Note GetWell Understands Education Yes GetWell Education Video Your Hospital Stay: Moving to Another Care Facility [employer] Learning Participants Patient [facility] 04-18-2025 Note GetWell Understands Education GetWell Education Video Stroke: Fast facts GetWell Learning Participants [facility] 04-18-2025 Note GetWell Understands Education GetWell Education Video Stroke: Fast facts GetWell Learning Participants [facility] 04-18-2025 Note GetWell Understands Education Yes GetWell Education Video After a Hospital Stay: Managing Appointments GetWell Learning Participants Patient [facility] 04-18-2025 Note GetWell Understands Education Yes GetWell Education Video Preventing Falls in the Hospital GetWell Learning Participants Patient [facility] 04-18-2025 Note GetWell Understands Education Yes GetWell Education Video Avoiding Infections in the Hospital GetWell Learning Participants Patient [facility] 04-18-2025 Note GetWell Learning Par ticipants Patient GetWell Understands Education Yes GetWell Education Video What Is a Stroke? [facility] 04-17-2025 Evaluation + Plan note Extrac fernando [...] today patient is pending cardiac cath at [facility] towards the end of this month for [...] deep vein thrombosis (DVT) prophylaxis (Z79.899: Other intermediate (current) drug therapy) Resume Xarelto 11. History [...] deep vein thrombosis (DVT) prophylaxis (Z79.899: Other lens maker (current) drug therapy) 11. History of DVT in adulthood (Z86.718: Personal history of other venous thrombosis and embolism) Chronic constipation with overflow (K59.09: Other constipation) Extracted from: Title:Progress/SOAP Note Author:Hanna GUSTAFSON, [facility] Date:04/16/25 1. CVA (cerebrovascular acci dent) (I63.9: [...] deep vein thrombosis (DVT) prophylaxis (Z79.899: Other intermediate (current) drug therapy) 11. History of DVT [...] deep vein thrombosis (DVT) prophylaxis (Z79.899: Other intermediate (current) drug therapy) Resume Xarelto 11. History [...] deep vein thrombosis (DVT) prophylaxis (Z79.899: Other intermediate (current) drug therapy) 11. History of DVT [...] deep vein thrombosis (DVT) prophylaxis (Z79.899: Other lens maker (current) drug therapy) 10. History of DVT [...] deep vein thrombosis (DVT) prophylaxis (Z79.899: Other lens maker (current) drug therapy) Other obstructive and reflux uropathy (N13.8: Other obstructive and reflux uropathy) Pleural effusion (J90: Pleural effusion, not elsewhere classified) Extracted from: Title:Admission H & P Author:Layne VERDUGO DO Date:04/14/25 1. CVA (cerebrovascular acci dent) (I63.9: Cerebral infarction, unspecified) Interventional neurology was consulted from the emergency department at [facility]. They recommended patient started on a low [...] deep vein thrombosis (DVT) prophylaxis (Z79.899: Other intermediate (current) drug therapy) SCD, heparin Orders: albuterol, [...] erythema or exudate. - POA. will consult [facility]. bacitracin bid. Extracted from: Title:ED Note Author:Indu [...] Date:06/11/2025 11:40:00 AM Scheduled Provider:LU OLMEDO PA-C Location:[facility] Appointment Type:URO Office Visit [facility] 06-03-2025 NoteProgress Note-Physician Assessment/Plan PLAN: 1. [...] today patient is pending cardiac cath at [facility] towards the end of this month for [...] deep vein thrombosis (DVT) prophylaxis (Z79.899: Other intermediate (current) drug therapy) Resume Xarelto 11. History [...] Lymph Auto: 7.1 % Low (04/17/25 06:01:00) Van Zandt Auto: 13.7 % (04/17/25 06:01:00) Eos Auto: 0.6 % (04/17/25 06:01:00) Basophil Auto: 0.6 % (04/17/25 06:01:00) Neutro Absolute: 7.7 E9/L High (04/17/25 06:01:00) Lymph Absolute: 0.7 E9/L Low (04/17/25 06:01:00) Van Zandt Absolute: 1.4 E9/L High (06 (more content not included)...[facility]Result Comment: Electronically Signed By: Anai URIARTE\.br\Date and Time Signed: 04/17/25 08:59 EDT\.br\Electronically Co-Signed By: Marc Fajardo DO\.br\Date and Time Co- Signed: 04/17/25 13:29 [id number] NoteProgress Note-Physician Assessment/Plan ASSESSMENT: Acute to subacute [...] deep vein thrombosis (DVT) prophylaxis (Z79.899: Other lens maker (current) drug therapy) 11. History of DVT [...] both correctly = 0 Open and close eyes/blind installer release hand: Obeys both correctly = 0 [...] MPV: 9.1 fL ( (more content not included)...[facility] Comment on above:Result Comment: Electronically Signed By: Pati Quinones RN\.br\Date and Time Signed: 04/17/25 09:21 EDT\.br\Electronically Co- Signed By: Ruy Molina DO\.br\Date and Time Co-Signed: 04/17/25 10:46 EDT 04-16-2025 NoteProgress Note-Physician Subjective Patient off floor for MRI. I did discuss the echo findings with the patient family. Patient family was advised to follow-up with his outpatient treating medical laboratory technician. Patient medical laboratory technician showed be able to get access to [...] Lymph Auto: 4.6 % Low (04/16/25 06:05:00) Van Zandt Auto: 10.8 % (04/16/25 06:05:00) Eos Auto: 0.2 % (04/16/25 06:05:00) Basophil Auto: 0.1 % (04/16/25 06:05:00) Neutro Absolute: 12.3 E9/L High (04/16/25 06:05:00) Lymph Absolute: 0.7 E9/L Low (04/16/25 06:05:00) Van Zandt Absolute: 1.6 E9/L High (04/16/25 06:05:00) Eos [...] mg/dL High (04/16/25 11:23:00) POC Device SN: [id number] (04/16/25 11:23:00) POC User ID: [id number] (04/16/25 11:23:00) POC Username: IWCHO NORRIS (04/16/25 11:23:00) Assessment/Plan 1. CVA (cerebrovascular [...] deep vein thrombosis (DVT) prophylaxis (Z79.899: Other lens maker (current) drug therapy) 11. History of DVT [...] loratadine 10 mg Tab, (more content not included)...[facility] Comment on above:Result Comment: Electronically Signed By: Hanna GUSTAFSON, Rebeca\.br\Date and Time Signed: 04/16/25 12:15 [id number] NoteProgress Note-Physician Assessment/Plan PLAN: 1. CVA (cerebrovascular [...] deep vein thrombosis (DVT) prophylaxis (Z79.899: Other intermediate (current) drug therapy) Resume Xarelto 11. History [...] Lymph Auto: 4.6 % Low (04/16/25 06:05:00) Van Zandt Auto: 10.8 % (04/16/25 06:05:00) Eos Auto: 0.2 % (04/16/25 06:05:00) Basophil Auto: 0.1 % (04/16/25 06:05:00) Neutro Absolute: 12.3 E9/L High (04/16/25 06:05:00) Lymph Absolute: 0.7 E9/L Low (04/16/25 06:05:00) Van Zandt Absolute: 1.6 E9/L High (04/16/25 06:05:00) Eos Absolute: 0 E9/L (04/16/25 06:05:00) Basophil Absolute: 0 E9/L (04/16/25 06:05:00) Glucose Lvl: 212 mg/dL High (04/16/25 06:05:00) BUN: 33 mg/dL High (04/16/25 06:05:00) Creatinine: 1.7 mg/dL High (04/16/25 06:05:00) eGFR: 39 mL/min/1.73 (more content not included)...[facility] Comment on above:Result Comment: Electronically Signed By: [...] be managed by a specialist called an warper fixer. Type 2 diabetes may be treated by [...] meet with a certified diabetes care and education and development manager? What diabetes medicines do I need, and when should I take them? What equipment will I need to manage my diabetes at home? How often do I need to check my blood glucose? Where can I find a support group for people with diabetes? What number can I call if I have questions? When is my next appointment? General instructions Take mezc-wsw-tbbgyvm and prescription medicines only as told by your health care provider. Keep all follow-up visits. This is important. Where to find more information For help and guidance and for more information about diabetes, please visit: [place] Diabetes Association (ADA): www.diabetes.org [place] Association of Diabetes Care and Education Specialists [...] provider. Document Revised: 01/26/2022 Document Reviewed: 01/26/2022 [employer] Patient Education 2023 [employer]. 04/16/2025 09:29:43 Atrial Fibrillation Atrial Fibrillation Atrial [...] electrical signals of the heart. An ambulatory campus monitor to record your heart's activity for a [...] provider. Document Revised: 07/21/2023 Document Reviewed: 07/21/2023 [employer] Patient Education 2023 [employer]. 04/16/2025 09:29:43 Core Measures: Stroke (Cerebrovascular Accident) [facility] (Custom) Stroke (Cerebrovascular Accident) A stroke is [...] factors for stroke, work with your health early breastfeeding care specialist to control them. High Blood Pressure: High [...] Please call [facility] Smoking Cessation Program at [phone] ([facility]), or [phone], ext. [phone] Diabetes: Work with your healthcare professional to [...] cholesterol diet, you can call our [facility] collaborating supervising physician at [phone] Ext. [phone]. The goal for total cholesterol is less [...] your risk of stroke with your health early breastfeeding care specialist. TREATMENT TIME IS OF THE ESSENCE! Medications [...] Measures will be takento prevent short and lens maker complications, including aspiration pneumonia, blood clots in [...] for more information on strokes, log onto www.[email or web address].com or www.strokeassociation.org or call the [place] Heart Association at . Revised 11/2018 Follow Up Care 04/14/2025 16:54:01 With:Neurology Address: [phone] When:2 to 4 weeks Comments:Call for followup appointment [facility] 06-02-2025 NoteEchocardiology Procedure Exam Date/Time Accession # Ordering Echo Transthoracic 04/16/2025 10:06 EDT [id number] PEPE AGELENITA, Complete Anai CPT code 61326 [id number] Reason for Exam (Echo Transthoracic Complete) CVA Report [facility] [address] [place] [address] Adult Echocardiogram Report Name: NADIR BETH Study Date: 04/16/2025 09:15 AM BP: 172/80 mmHg Patient Location: [id number] [id number] [facility] Bed(s) [facility] HR: 94 : 1940 Gender: Male Height: [...] Rebeca Ferreira MD Transcribed by: ROBER Technologist: [facility]06-02-2025 Note Progress Note-Physician Assessment/Plan ASSESSMENT: His presentation [...] deep vein thrombosis (DVT) prophylaxis (Z79.899: Other lens maker (current) drug therapy) 11. History of DVT [...] Both incorrect = 1 Open and close eyes/blind installer release hand: Obeys both correctly = 0 [...] Lymph Auto: 4.6 % Low (04/16/25 06:05:00) Van Zandt Auto: 10.8 % (04/16/25 06:05:00) Eos Auto: 0.2 % (04/16/25 06:05:00) Basophil Auto: 0.1 % (04/16/25 06:05:00) Neutro Absolute: 12.3 E9/L High (04/16/25 06:05:00) Lymph Absolut (more content not included)...[facility]:Result Comment: Electronically Signed By: Tonny OTERO, Preethi Marroquin\.br\Date and Time Signed: 04/16/25 07:32 EDT\.br\Electronically Co-Signed By: Ruy Molina DO\.br\Date and Time Co-Signed: 04/16/25 09:47 [id number] Note Interdisciplinary Note - PT PT Evaluation done this date. Pt. with on AM-PAC this date. Min Ax1 and FWW with all activityfor safety. Recommend SNF at this time, will continue to follow.[facility]06-01-2025 NoteInterdisciplinary Note - PT PT evaluation order received. Pt has an MRI still pending and as per nursing should be on hold for today. Will attempt tomorrow.[facility] 04-15-2025 NoteConsultation Note Chief Complaint AMS History [...] Patient's daughter Valerie is healthcare power of commercial painter. She was on the phone. She states that for the time being she would like patient to be a full code. She will discuss this with her family and notify us if she makes any changes. Family does note that patient was admitted for a stroke at [facility] about 6 weeks ago. They state that [...] is obtained. He does follow-up with outpatient medical laboratory technician. Review of Systems As per HPI Physical [...] deep vein thrombosis (DVT) prophylaxis (Z79.899: Other lens maker (current) drug therapy) 10. History of DVT [...] hernia repair, Tonsillectomy. Medications (more content not included)...[facility]:Result Comment: Electronically Signed By: Rebeca Ferreira MD\.mary\Date and Time Signed: 04/15/25 09:39 [id number] NoteConsultation Note Chief Complaint AMS Reason for [...] was admitted for stroke workup at the [facility] about a month and a half ago [...] Both incorrect = 2 Open and close eyes/blind installer release hand: Obeys both correctly = 0 [...] 9. DM2 (diabetes elio (more content not included)...[facility] Comment on above:Result Comment: Electronically Signed By: Stephanie Mello RN\.br\Date and Time Signed: 04/15/25 06:55EDT\.br\Electronically Co-Signed By: Ruy Molina DO\.br\Date and Time Co-Signed: 04/15/25 09:37 [id number] Note History and Physical Basic Information Admit [...] Patient's daughter Valerie is healthcare power of commercial painter. She was on the phone. She states that for the time being she would like patient to be a full code. She will discuss this with her family and notify us if she makes any changes. Family does note that patient was admitted for a stroke at [facility] about 6 weeks ago. They state that [...] other details. NIH Stroke Scale/Score (NIHSS) from [employer] on 04/14/2025 All calculations should be rechecked [...] Lymph Auto: 7.8 % Low (04/14/25 17:08:00) Van Zandt Auto: 9.9 % (04/14/25 17:08:00) Eos Auto: 1.5 % (04/14/25 17:08:00) Basophil Auto: 0.8 % (04/14/25 17:08:00) Neutro Absolute: 6.5 E9/L (04/14/25 17:08:00) Lymph Absolute: 0.6 E9/L Low (04/14/25 17:08:00) Van Zandt Absolute: 0.8 E9/L (04/14/25 17:08:00) Eos Absolute: 0.1 E9/L (04/14/25 17:08:00) Basophil Absolute: 0.1 E9/L (04/14/25 17:08:00) PT: 11 second(s) (04/14/25 17:08:00) INR: 0.98 (04/14/25 17:08:00) PTT: 33.3 second(s) (04/14/25 17:08:00) Glucose Lvl: 245 mg/dL High (04/14/25 17:08:00) BUN: 28 mg/dL High (04/14/25 17:08:00) Creatinine: 1.8 mg/dL High (04/14/25 17:08:00) eGFR: 36 mL (more content not included)...[facility]:Result Comment: Electronically Signed By: Layne VERDUGO DO\Date and Time Signed: 04/15/25 02:30 [id number] NoteHistory and Physical Basic Information Admit Date/Time:04/14/2025 [...] up. When I lift up his right yyaa right leg they drop to the bed immediately. Patient's daughter Valerie is healthcare power of commercial painter. She was on the phone. She states that for the time being she would like patient to be a full code. She will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 Carrots 1/2 cup sliced 2.3 Peas 1 cup 8.8 Potato (baked, with skin) 1 medium potato 3.8 Raw Chancellor (with peel) 1 cucumber 1.5 Lettuce 1 [...] Peanuts 1/2 cup 7.9 Chart from [facility] 2012. SEEK IMMEDIATE MEDICAL CARE IF: [...] Reference. Available at http://www.nal.usda.gov/fnic/foodcomp/search/. Information adapted from: [facility] Patient Information 2009 [employer]. [employer] 2012 http://www.Humansized/contents/jhceqjitpxbx-fylphty-rfdfzh-the-basics Follow Up Care 03/31/2022 10:27:32 With:Napoleon NOVA Address: [address] [place] [address]. [address] [place] [address] Business (1) When: Unknown Comments:office will call for follow up [facility]05-17-2022 Hospital Discharge instructions Patient Education 03/31/2022 [...] including vitamins, herbs, eye drops, creams, and jauf-iuj-rzrfamq medicines. Any problems you or family members [...] 10/29/2001 Document Revised: 08/24/2018 Document Reviewed: 01/12/2017 [facility] Patient Education [employer]. Follow Up Care 03/23/2022 12:11:50 With:Nereyda Gomez CNP Address: When:1 month [facility] [employer] + Plan note Future Appointments Appointment Date:05/25/2022 08:45:00 AM Scheduled Provider: Location:[facility] Appointment Type:Surgery FT [facility] evaluation + Plan note Future Appointments Appointment Date:06/10/2023 10:40:00 AM Scheduled Provider:Nereyda Gomez CNP [place] Appointment Type:[facility] Follow Up Future Scheduled Tests Laboratory* Fecal WBC Lactoferrin 04/13/23 * Giardia lamblia, Direct Detection EIA 04/13/23 * O & P Exam, Routine 04/13/23 * Clostridium Difficile PCR 04/13/23 * Enteric Panel by PCR 04/13/23 [facility] evaluation + Plan note Future Appointments Appointment Date:06/10/2023 10:40:00 AM Scheduled Provider:Nereyda Gomez CNP [place] Appointment Type:[facility] Follow Up Diagnostic Tests Pending * O & P Exam, Routine 04/15/23 * Giardia lamblia, Direct Detection EIA [facility]15[facility]23 [facility] Future Appointments Appointment Date:09/13/2023 10:40:00 AM Scheduled Provider:Nereyda Gomez CNP Location:[facility] Appointment Type:BAD Follow Up [facility] evaluation + Plan note Future Appointments Appointment Date:10/14/2023 02:20:00 PM Scheduled Provider:Nereyda Gomez CNP Location:[facility] Appointment Type:[facility] Follow Up Future Scheduled Tests Laboratory* CBC w/ Auto Diff 10/01/23 * Comprehensive Metabolic Panel 10/01/23 * Thyroid Stimulating Hormone 10/01/23 [facility] Evaluation + Plan note Future Appointments Appointment Date:12/09/2023 02:00:00 PM Scheduled Provider:Nereyda Gomez CNP Location:[facility] Appointment Type:[facility] Follow Up Future Scheduled Tests Laboratory* CBC w/ Auto Diff 10/01/23 * Comprehensive Metabolic Panel 10/01/23 * Thyroid Stimulating Hormone 10/01/23 [facility] Evaluation + Plan note Future Appointments Appointment Date:10/26/2024 09:30:00 AM Scheduled Provider: Location:[facility] Appointment Type:URO Nurse Visit Appointment Date:12/04/2024 08:40:00 AM Scheduled Provider:MARQUIS LOUISE MD Location:[facility] Appointment Type:URO Office Visit Future Scheduled Tests Laboratory* CBC w/ Auto Diff 10/01/23 * Comprehensive Metabolic Panel 10/01/23 * Thyroid Stimulating Hormone 10/01/23 [facility] evaluation + Plan note Future Appointments Appointment Date:11/06/2024 09:00:00 AM Scheduled Provider: Location:[facility] Appointment Type:URO Nurse Visit Appointment Date:12/04/2024 08:40:00 AM Scheduled Provider:MARQUIS LOUISE MD Location:[facility] Appointment Type:URO Office Visit Future Scheduled Tests Laboratory* CBC w/ Auto Diff 10/01/23 * Comprehensive Metabolic Panel 10/01/23 * Thyroid Stimulating Hormone 10/01/23 [facility] Evaluation + Plan note Future Appointments Appointment Date:12/04/2024 08:40:00 AM Scheduled Provider:MARQUIS LOUISE MD Location:[facility] Appointment Type:URO Office Visit Future Scheduled Tests Laboratory* CBC w/ Auto Diff 10/01/23 * Comprehensive Metabolic Panel 10/01/23 * Thyroid Stimulating Hormone 10/01/23 [facility] evaluation + Plan note Future Appointments Appointment Date:06/11/2025 11:40:00 AM Scheduled Provider:LU OLMEDO PA-C Location:[facility] Appointment Type:URO Office Visit Future Scheduled Tests Laboratory* CBC w/ Auto Diff 10/01/23 * Comprehensive Metabolic Panel 10/01/23 * Thyroid Stimulating Hormone 10/01/23 [facility] Evaluation note* Diagnosis Melanocytic nevus [...] underlying condition with diabetic polyneuropathy, unspecified whether lens maker insulin use (CMS/HCC) Pain due to onychomycosis of toenails of both feet [facility] Diagnosis Xerosis cutis- Primary Other specified disease of sebaceous glands Verruca plantaris Plantar wart Foot pain, right Pain in soft tissues of limb Diabetes mellitus due to underlying condition with diabetic polyneuropathy, unspecified whether intermediate insulin use (CMS/HCC) Onychomycosis Dermatophytosis of nail [...] underlying condition with diabetic polyneuropathy, unspecified whether intermediate insulin use (CMS/HCC) Pain due to onychomycosis [...] underlying condition with diabetic polyneuropathy, unspecified whether lens maker insulin use (CMS/HCC) Pain due to onychomycosis [...] underlying condition with diabetic polyneuropathy, unspecified whether lens maker insulin use (CMS/HCC) Pain due to onychomycosis [...] Emergency squad called today documented in this [facility] Narrative No data available for this section [facility] Hospital Discharge instructions No data available for this section [facility] No data available for this section [facility] Summary Purpose Family History No Family [...] section and content) DATE CREATED AUTHOR 02/09/2019 [facility] DATE CREATED AUTHOR AUTHOR'S ORGANIZ ATION 03/28/2023 [facility] DATE CREATED AUTHOR AUTHOR'S ORGANIZ ATION 04/13/2025 [facility] EP[facility] DATE CREATED AUTHOR AUTHOR'S ORGANIZ ATION 04/15/2025 [facility] DATE CREATED AUTHOR AUTHOR'S ORGANIZ ATION 04/16/2025 [facility] DATE CREATED AUTHOR AUTHOR'S ORGANIZ ATION 04/17/2025 [facility] DATE CREATED AUTHOR AUTHOR'S ORGANIZ ATION 04/18/2025 [facility] DATE CREATED AUTHOR AUTHOR'S ORGANIZ ATION 04/19/2025 [facility] DATE CREATED AUTHOR AUTHOR'S ORGANIZ ATION 04/21/2025 [facility] DATE CREATED AUTHOR AUTHOR'S ORGANIZ ATION 04/22/2025 [facility] DATE CREATED AUTHOR AUTHOR'S ORGANIZ ATION 05/06/2025 [facility] DATE CREATED AUTHOR AUTHOR'S ORGANIZ ATION 05/07/2025 [facility] Care Team (unrecognized sect ion and content) Tire Bladder Maker Relationship Specialty Start Date End Date Van Youssef MD [address] [place] [address] PCP - General Family Medicine 12/02/23 Tire Bladder Maker Relationship Specialty Start Date End Date Van Youssef MD [address] [place] [address] PCP - General Family Medicine 12/02/23 Tire Bladder Maker Relationship Specialty Start Date End Date Van Youssef MD [address] [facility] [place] [address] PCP - General Family Medicine 12/02/23 Tire Bladder Maker Relationship Specialty Start Date End Date Van Youssef MD [address] [facility] [place] [address] PCP - General Family Medicine 12/02/23 Tire Bladder Maker Relationship Specialty Start Date End Date Van Youssef MD [address] [facility] [place] [address] PCP - General Family Medicine 12/02/23 Tire Bladder Maker Relationship Specialty Start Date End Date Van Youssef MD [address] [facility] [place] [address] PCP - General Family Medicine 12/02/23 Tire Bladder Maker Relationship Specialty Start Date End Date Van Youssef MD [address] [facility] [place] [address] PCP - General Family Medicine 12/02/23 Tire Bladder Maker Relationship Specialty Start Date End Date Van Youssef MD [address] [facility] [place] [address] PCP - General Family Medicine 12/02/23 Tire Bladder Maker Relationship Specialty Start Date End Date Van Youssef MD [address] [facility] [place] [address] PCP - General Family Medicine 12/02/23 Tire Bladder Maker Relationship Specialty Start Date End Date Van Youssef MD [address] [facility] [place] [address] PCP - General Family Medicine 12/02/23 Tire Bladder Maker Relationship Specialty Start Date End Date Van Youssef MD [address] [facility] [place] [address] PCP - General Family Medicine 12/02/23 Tire Bladder Maker Relationship Specialty Start Date End Date Van Youssef MD PCP - General Family Medicine 12/02/23 Tire Bladder Maker Relationship Specialty Start Date End Date Van Youssef MD [address] [facility] [place] [address] PCP - General Family Medicine 12/02/23 Tire Bladder Maker Relationship Specialty Start Date End Date Van Youssef MD [address] [facility] [place] [address] PCP - General Family Medicine 12/02/23 Tire Bladder Maker Relationship Specialty Start Date End Date Van Youssef MD [address] [facility] [place] [address] PCP - General Family Medicine 12/02/23 Tire Bladder Maker Relationship Specialty Start Date End Date Van Youssef MD [address] [facility] [place] [address] PCP - General Family Medicine 12/02/23 Reason [...] BE BASED ON THE PRIMARY CLINICAL RECORDS. [facility]. provides no warranty or guarantee of the accuracy or completeness of information in this document.
--- OUTSIDE RECORDS SUMMARY | 2025-05-09 06:09 | XMS_ITS | Clinical Summary ---
Author Organization [facility] Address [address] [place] [address] Care Team Providers Care Information Assurance Analyst Name Role Phone Pj Sung MD Primary Care Provider [phone] Allergies Active Allergy Reactions Criticality Noted Date [...] Vaccine (Season Ended) 2025 Insurance [facility] MEDICARE Care Teams Information Assurance Analyst Relationship Specialty Start Date End Date Pj Sung MD PCP - General Family Medicine 08/24/12
--- OUTSIDE RECORDS SUMMARY | 2025-05-09 06:09 | XMS_ITS | Clinical Summary ---
Author Organization [facility] Address [address] [place] [address] Phone Care Team Providers Care Emergency Generator Mechanic Name Role Phone Unavailable Primary Care Provider [...]
--- OUTSIDE RECORDS SUMMARY | 2025-05-09 06:09 | XMS_ITS | Encounter Summary ---
Author Organization [facility] Address [address] [place] [address] Care Team Providers Care Photograph Developer Name Role Phone Pj Sung MD Primary Care Provider [phone] Encounter Details Date Type Department Care Team (Late Contact Info) Description 04/25/2025 Telephone [facility] [address] [address] Mulu Edgar MA Social History [...] 04/25/2025 11:50 AM EDT Patient' daughter Valerie ([phone]) called to let our office know that pt had stroke after appt 04/10/25. Went to [facility]. I will get records from admission, scheduled appt with Winnie 05/08. Is 05/08 FUok or push it out further? Original FU not until 09/2025. documented in this encounter Plan of Treatment Upcoming Encounters Date Type Department Care Team (Late Contact Info) Description 06/21/2025 10:40 AM EDT Office Visit [facility] [address] [facility] [address] [place] [phone] Blaise Dc DPM [address] [facility] [address] [place] [address] 07/10/2025 10:30 AM EDT Office Visit [facility] [address] [place] [address] Lenin Montoya MD [address] [id number] 09/11/2025 1:15 PM EDT Office Visit [facility] [address] [place] [address] Mercedes Joy MD [address] [facility] [address] [place] [address] 10/09/2025 1:45 PM EST Office Visit [facility] [address] [place] [address] Lenin Montoya MD [address] [address] documented as of this encounter Visit Diagnoses Not on filedocumented in this encounter Care Teams Photograph Developer Relationship Specialty Start Date End Date Pj Snug MD [address] [place] [address] PCP - General Family Medicine 12/02/23 documented as of this encounter
[2025-05-09 06:28] LABS: Anion Gap 14.5; BUN Creatinine Ratio 18.6; Calcium 9.3 mg/dL (8.5-10.1); Carbon Dioxide 28.5 mmol/L (21.0-32.0); Chloride 104 mmol/L (98-107); Estimated GFR (African America 44 (>=60 mL/min/1.73m^2); Estimated GFR (Non-African Ame 37 (>=60 mL/min/1.73m^2); Glucose 169 mg/dL (74-106); Magnesium 2.2 mg/dL (1.8-2.4); Sodium 143 mmol/L (136-145); Troponin I High Sensitivity 16.9 pg/mL (4.0-76.1)
--- NOTE | 2025-05-09 08:36 | SWNOTE1 ---
SW and I met with pt in room. SW did ask where pt came from before the hospital, pt stated the [facility]. SW asked how long he had been there, pt voiced about 3 days but he wasn't too sure. SW to call [facility] to confirm. SW asked pt if he liked the [facility] and planned to return there at discharge, pt voiced yes. Pt also uses a cane. Pt has no further questions or concerns. SW to follow as needed.
--- NOTE | 2025-05-09 08:41 | SWNOTE1 ---
MATHEW sent message to Mikey at [facility] and pt is from there skilled and has been there since 04/18/25.
--- NOTE | 2025-05-09 08:43 | CA_ITS ---
Patient Name: NADIR HEREDIA MR#: [id number] : 1940 Exam Date: 05/09/2025 Ordering Doctor: JADEN PIEDRA ECHOCARDIOGRAM REPORT PROCEDURE: CA ECHO LIMITED INDICATIONS: CHF exacerbation, atrial fibrillation, hypertension, diabetes COMPARISON: None. DESCRIPTION: Limited ECHOCARDIOGRAM Real-time transthoracic echocardiography with 2D and M-mode performed. QUALITY: Technical quality was good. Limited echocardiogram per physician order. LEFT VENTRICLE: Normal chamber size. Severe concentric left ventricular hypertrophy. Estimated left ventricular ejection fraction is 65% LV EF: Normal left ventricular ejection fraction, (>55%). DIASTOLIC: ATRIAL SEPTUM: LEFT ATRIUM: Severe dilatation. RIGHT ATRIUM: Severe dilatation. RIGHT VENTRICLE: Moderate dilatation. Normal systolic function. TRICUSPID VALVE: Normal mobility and thickness. Mild to moderate regurgitation. Severely elevated right-sided pressures. RVSP is 78 mmHg, which is greater than previous echocardiogram done 02/15/25 measuring at 61 mmHg. MITRAL VALVE: Normal mobility and thickness. Mild mitral annular calcification. AORTIC VALVE: Normal trileaflet appearance. Severely calcified aortic valve. Severely diminished mobility. 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 PULMONIC VALVE: Normal thickness and mobility. PERICARDIUM: Moderate pericardial effusion. IVC: IVC is dilated (3.1 cm), does not collapse. PLEURA: CONCLUSION: 1. Severe concentric left ventricular hypertrophy with normal systolic function. LVEF is 65%. 2. Moderately dilated right ventricle with normal systolic function. 3. Severe biatrial dilatation. 4. Mild to moderate tricuspid regurgitation. 5. Heavily calcified aortic valve with severely reduced leaflet mobility. 6. Severely elevated right-sided pressures. RVSP is 78 mmHg. 7. Limited study performed as requested. Adult Echocardiography Procedure Report Left Ventricle LVEDD (3.7 - 5.6 cm): 4.12 cm LVESD (2.2 - 4.0 cm): 2.58 cm LVIVS thickness (0.6 - 1.2 cm): 1.81 cm LVPW thickness (0.5 - 1.0 cm): 1.58 cm LVOT Diameter 2.24 cm Left Ventricular Ejection Fraction: 65 % Left Atrium LA Volume Index (2D A2C): 132.73 ml/m2 Left Atrium Systolic Dimension: 6.27 cm Mitral Valve Right Ventricle Aorta AO Root Diam: 4.18 cm Aortic Valve Tricuspid Valve Peak Velocity (Regurgitant Flow): 3.80 m/s, 4.26 m/s, 4.05 m/s, 3.79 m/s Pulmonic Valve Right Atrium Right Atrium Systolic Pressure: 132.84 ml, 132.84 ml Dictated by: Mike Cisneros M.D. on 05/09/2025 at 19:15 Approved by: Mike Cisneros M.D. on 05/09/2025 at 19:20
[2025-05-09] MEDS: PRIMIDONE 50 MG TABLET 100 MG PO ×2 (09:26→21:28)
[2025-05-09] MEDS: TAMSULOSIN HCL 0.4 MG CAPSULE PO (09:26)
[2025-05-09] MEDS: PANTOPRAZOLE SODIUM 40 MG TABLET.DR PO (09:26)
[2025-05-09] MEDS: EZETIMIBE 10 MG TABLET PO (09:26)
[2025-05-09] MEDS: DICYCLOMINE HCL 10 MG CAPSULE PO ×2 (09:26→21:28)
[2025-05-09] MEDS: RIVAROXABAN 10 MG TABLET 15 MG PO (09:26)
[2025-05-09] MEDS: FUROSEMIDE 40 MG/4 ML VIAL 80 MG IVP (09:26)
[2025-05-09] MEDS: ASPIRIN 81 MG TABLET.DR PO (09:26)
[2025-05-09] MEDS: CLONIDINE HCL 0.1 MG TABLET 0.2 MG PO ×2 (09:27→21:27)
[2025-05-09] MEDS: MAGNESIUM OXIDE 400 MG TABLET PO ×3 (09:27→21:27)
[2025-05-09] MEDS: FOLIC ACID/VIT B6/VIT B12 TABLET 1 TAB PO (09:27)
[2025-05-09] MEDS: CETIRIZINE HCL 10 MG TABLET PO (09:27)
--- NOTE | 2025-05-09 09:35 | SWNOTE1 ---
Important Message from Medicare reviewed and discussed with patient's over the phone. Pt's verbalized understanding and SW signed the form that it was reviewed. Original placed in pt's room and copy placed in patient?s chart.
--- NOTE | 2025-05-09 09:36 | SWNOTE1 ---
MATHEW called and spoke to pt's over the phone. She was not feeling well and going to doctor later this morning. She voiced he is doing well at [facility] and plan is to return. MATHEW did ask about code status and voiced she thinks they would want everthing done. MATHEW advised that MATHEW will reach out to Dr. Sung and have him discuss with pt and . [facility] also confirmed they have pt as a full code as well. MATHEW updated pt's nurse.
--- NOTE | 2025-05-09 10:43 | PC.NURSE ---
Daughter Valerie notified of transfer to [facility] for heart cath. Daughter stated that Dr Venutra's office already informed me Nurse states that she will keep family updated about time of transfer/ bed available. Daughter states to not say anything to pt until after time is known for transport as he will be very upset about having to ride in the ambulance (due prior negative experience in the past)
[2025-05-09] MEDS: BUDESONIDE 0.5 MG/2 ML AMPULE NEB IH ×2 (11:27→22:02)
[2025-05-09] MEDS: IPRATROPIUM/ALBUTEROL SULFATE 3 ML AMPUL.NEB IH ×3 (11:27→22:02)
[2025-05-09 11:30] LABS: Glucometer 316 mg/dL (74-106)
[2025-05-09] MEDS: INSULIN ASPART 300 UNIT/3 ML PEN SUBQ ×3 (11:53→21:28)
--- NOTE | 2025-05-09 11:55 | CM.NOTE ---
Rounds made with Dr. Medina. Dr. Medina reviews findings with Mr. Sancheznishinereida and will also call family member. PT/OT ordered.
--- NOTE | 2025-05-09 12:09 | P.IMPN_ITS ---
Progress Note: A&P Assessment and Plan (1) Acute exacerbation of CHF (congestive heart failure): (2) Aortic stenosis: (3) Atrial fibrillation: Qualifiers: Atrial fibrillation type: paroxysmal Qualified Code(s): I48.0 - Paroxysmal atrial fibrillation (4) AMS (altered mental status): Plan Acute exacerbation of chronic diastolic CHF, NYHA class III, Stage C Component of moderate aortic stenosis CKD stage III Delirium, likely worsening dementia with no apparent trigger for metabolic encephalopathy Recent history of CVA, A-fib on chronic anticoagulation with Xarelto - Patient was admitted to [facility] floor under hospitalist service - Start IV Lasix 40 mg twice daily will be careful with IV diuresis to avoid over to decreasing the preload, given the patient's right heart failure as well as aortic stenosis - Reviewed the orders, will continue with rivaroxaban as well as pantoprazole for GI prophy - Insulin sliding scale - I received a call from Dr. Cisneros, as the patient was scheduled for a cardiac cath tomorrow as part of his evaluation for his worsening SOB and HERNANDEZ as well as evaluation for possible need for TAVR given his symptomatic aortic stenosis. He was scheduled for the procedure tomorrow at [facility]. He [place] be transferred today [place] [facility] [place] get [place]. I discussed the plan with his insurance plan specialist, explained that neurologically patient does not have any new focal deficits. CT head without contrast did not show any acute pathology and admission. I also discussed in details the plan with his daughter who is okay with him being transferred to [facility], states that his symptoms wax and wanes which is part of his post stroke clinical picture and is followed with neurology she does not believe her dad has anything acute to be worried about. From neurology standpoint. From a heart failure standpoint I explained to the insurance plan specialist that I am continuing his IV diuresis and the he is getting to euvolemic state the next 24 hours. I will defer the final examination of the day of the procedure to cardiology in the patient's team on the floor [facility]. As of now, patient appears to be fit to be transferred to [facility] for further workup and examination as well as assessment by cardiology and medical floor in [facility]. Awaiting final decision from cardiology whether they need to transfer the patient today or not Internal Medicine - PN: Subj Subjective Interval history: Please be aware that I am seeing this patient for the first time this morning, and I took over this patient's care from an overnight admission. This is a 85 y.o male with past medical Hx of BPH, Atrial fibrillation, CHF and aortic stenosis, JOSIAH, Diverticulosis, on anticoagulation with xarelto, [facility] was at the [facility] for acute rehab, type 2 diabetes, GERD, HTN, and asthma here for altered mentation and SOB over the last week. Hx obtained from the pt at bedside, ED documentation, and from his daughter Caro over the phone. He is a patient of Dr. Sung, had a blood work with him and showed elevated BNP. Patient was complaining of significant worsening lower extremity edema as well as shortness of breath with exertion. This was at daughter states that over the last few months he has been having the shortness of breath that is significant with any type of exertion he does. He is being followed with Dr. Cisneros, cardiology will schedule him for cardiac cath tomorrow at [facility]. Dr. Cisneros told me that his aortic stenosis has been under evaluation as well. He denies any fever or chills but complains of orthopnea and PND as well. No nausea no vomiting. He states that he has been confused at times. When he has his daughter she states that at times he appears to be confused specially at night but then gets better in the morning. He follows Dr. Montoya, neurology and he just met his nurse practitioner yesterday after before being admitted here. In the ED, patient had normocytic anemia was displayed and leukocyte count were normal. His CMP showed BUN of 33 with creatinine of 1.77 similar to his baseline. A1c back in February was 11. His UA was negative for UTI in the ED. His chest x-ray showed mild pulmonary vascular congestion with right greater than left pleural effusions. His CT head without contrast was negative for acute pathology. When I saw him, he was at baseline mental status oriented x 2 not to the year however very pleasant and cooperative. He does have confusion at times as per the nursing team however with me he was answering all the basic questions following commands. He did have some generalized weakness however nothing more. No focal deficit on exam he was already started on IV diuresis with the nighttimes for this. Exam Narrative Exam Narrative: Frail elderly male, he is alert, oriented, x 2 not to the year not in apparent distress sitting up in HEENT within normal limits Neck supple, normal range of motion, no JVD, no Lungs fine crackles on the left base resolved with coughing. Otherwise no rhonchi or wheezes Cardiovascular system irregular irregularity, systolic ejection murmur 3/6 at the aortic area with radiation to the neck Abdomen soft benign no organomegaly or tenderness Extremities trace edema bilaterally on the right more than on the left, 2+ on the right 1+ on the left Neurological examination grossly normal Constitutional Vital Signs, click to edit/add: Last Vital Signs Temp 97.9 F 05/09/25 12:00 Pulse 94 H 05/09/25 12:00 Resp 20 05/09/25 12:00 BP 161/76 H 05/09/25 12:00 Pulse Ox 92 L 05/09/25 12:00 O2 Del Method Room Air 05/09/25 12:00 Internal Medicine - PN: Obj Da Labs Labs: Laboratory Results - last 24 hr 05/08/25 05/08/25 05/09/25 18:25 18:50 05:19 WBC 9.0 10.0 RBC 3.76 L 4.13 L Hgb 9.9 L 10.7 L Hct 31.6 L 34.0 L MCV 84.0 82.3 MCH 26.3 25.9 MCHC 31.3 31.5 RDW 19.0 H 19.0 H Plt Count 287 314 MPV 10.4 10.9 Neut % (Auto) 74.5 Lymph % (Auto) 10.2 L Stanton % (Auto) 12.9 H Eos % (Auto) 1.4 Baso % (Auto) 0.3 Neut # (Auto) 6.7 H Lymph # (Auto) 0.9 L Stanton # (Auto) 1.2 H Eos # (Auto) 0.1 Baso # (Auto) 0.0 Abs Immat Gran (auto) 0.06 H Imm/Tot Granulo (auto) 0.7 H Sodium 139 143 Potassium 4.7 4.0 Chloride 103 104 Carbon Dioxide 28.2 28.5 Anion Gap 12.5 14.5 BUN 30.0 H 33.0 H Creatinine 1.90 H 1.77 H Est GFR ( Amer) 41 L 44 L Est GFR (Non-Af Amer) 34 L 37 L BUN/Creatinine Ratio 15.8 18.6 Glucose 175 H 169 H Calcium 9.0 9.3 Magnesium 2.2 Troponin I High Sens 16.4 16.9 NT-Pro-B Natriuret Pep 6214.0 H* Urine Color Lt. yellow Urine Clarity Clear Urine pH 6.0 Ur Specific [place] <=1.005 A Urine Protein Negative Urine Glucose (UA) >=1000 A Urine Ketones Negative Urine Occult Blood Negative Urine Nitrite Negative Urine Bilirubin Negative Urine Urobilinogen 0.2 Ur Leukocyte Esterase Negative POC Glucose 05/09/25 11:20 WBC RBC Hgb Hct MCV MCH MCHC RDW Plt Count MPV Neut % (Auto) Lymph % (Auto) Stanton % (Auto) Eos % (Auto) Baso % (Auto) Neut # (Auto) Lymph # (Auto) Stanton # (Auto) Eos # (Auto) Baso # (Auto) Abs Immat Gran (auto) Imm/Tot Granulo (auto) Sodium Potassium Chloride Carbon Dioxide Anion Gap BUN Creatinine Est GFR ( Amer) Est GFR (Non-Af Amer) BUN/Creatinine Ratio Glucose Calcium Magnesium Troponin I High Sens NT-Pro-B Natriuret Pep Urine Color Urine Clarity Urine pH Ur Specific [place] Urine Protein Urine Glucose (UA) Urine Ketones Urine Occult Blood Urine Nitrite Urine Bilirubin Urine Urobilinogen Ur Leukocyte Esterase POC Glucose 316 H Urinary Catheter Management Urinary Catheter Management Pure Wick: Cath placed during this visit: yes Urethral indwelling: No Insertion date: 05/09/25 Insertion time: 01:10
--- NOTE | 2025-05-09 13:06 | SWNOTE1 ---
SW reviewed doctor note and plan is for pt to be transferred to [facility] for heart cath. MATHEW updated [place].
[2025-05-09 16:49] LABS: Glucometer 176 mg/dL (74-106)
[2025-05-09 21:15] LABS: Glucometer 157 mg/dL (74-106)
[2025-05-09] MEDS: FUROSEMIDE 40 MG/4 ML VIAL IVP (21:28)
[2025-05-09] MEDS: PREDNISOLONE ACETATE OP 1% SUSP 100 DROPS/5 ML 1 DROP EYE-BOTH (21:42)
== END 2025-05-10 01:22 | disposition short-term general hospital (02) | DRG 291 ==
LOC: ER 22:02 → MS 05-09 06:04
PROVIDERS: Emergency Medicine; Registered Nurse; Admitting Provider Student in an Organized Health Care Education/Training Program; Emergency Provider Emergency Medicine; PCP Family Medicine; Visit Provider Family Medicine
DX: I13.0 Hypertensive heart and chronic kidney disease with heart failure and stage 1 through stage 4 chronic kidney disease, or unspecified chronic kidney disease (principal); I50.33 Acute on chronic diastolic (congestive) heart failure; N13.8 Other obstructive and reflux uropathy; N18.30 Chronic kidney disease, stage 3 unspecified; E11.22 Type 2 diabetes mellitus with diabetic chronic kidney disease; Z79.84 Long term (current) use of oral hypoglycemic drugs; I35.0 Nonrheumatic aortic (valve) stenosis; I48.0 Paroxysmal atrial fibrillation; Z86.73 Personal history of transient ischemic attack (TIA), and cerebral infarction without residual deficits; Z79.01 Long term (current) use of anticoagulants; R41.0 Disorientation, unspecified; Z66 Do not resuscitate; G47.33 Obstructive sleep apnea (adult) (pediatric); K57.90 Diverticulosis of intestine, part unspecified, without perforation or abscess without bleeding; E78.5 Hyperlipidemia, unspecified; N40.1 Benign prostatic hyperplasia with lower urinary tract symptoms; Z90.49 Acquired absence of other specified parts of digestive tract; Z87.891 Personal history of nicotine dependence; Z79.899 Other long term (current) drug therapy; Z79.82 Long term (current) use of aspirin; K21.9 Gastro-esophageal reflux disease without esophagitis; J45.909 Unspecified asthma, uncomplicated; E11.40 Type 2 diabetes mellitus with diabetic neuropathy, unspecified
CPT/HCPCS: 36415; 70450; 71045; 80048; 80053; 81003; 82948; 83735; 83880; 84484; 85025; 85027; 93005; 93308; 94640; 96374; 96375; 97161; 97165; 99285; J0360; J1920; J1938

== ENCOUNTER 2025-05-25 13:26 | Outpatient (OUT) | payer MEDICARE, SELFPAY ==
--- NOTE | 2025-05-25 13:32 | CT_ITS ---
The [address] [address] Patient Name: NADIR HEREDIA MRN: [id number] date: 1940 Sex: M Assigned Patient Location: CT Current Patient Location: CT Accession/Order Number: [id number] Exam Date: 05/25/2025 19:35 Report Date: 05/25/2025 19:38 At the request of: VAN YOUSSEF MD Procedure: CT chest wo con CT CHEST WITHOUT IV CONTRAST: CLINICAL HISTORY: Pleural Effusion COMPARISON: Chest x-ray 05/08/2025 TECHNIQUE: Spiral images were obtained through the chest without IV contrast. This CT exam was performed using one or more following dose reduction techniques: Automated exposure control, adjustment of the mA and/or kV according to patient size, or use of iterative reconstruction technique. FINDINGS: Mediastinum:Cardiomegaly. Pericardial effusion noted. Prior aortic valvular surgery. Coronary artery disease noted. No bulky mediastinal or hilar adenopathy on this noncontrast examination. . Lungs:Moderate right-sided and mild left-sided pleural effusions. There are consolidative changes notably involving the right lower lobe less so the right middle lobe and left lower lobe likely due to areas of atelectasis and associated volume loss. Minimal parenchymal opacities involving the left lower lobe noted likely chronic finding. Abd: Upper abdominal images demonstrate atrophic left kidney. Soft tissues/Bones: []Multilevel degenerative changes throughout the thoracic spine. CT/CT chest wo con IMPRESSION: Bilateral effusions and areas of atelectasis. Impression dictated by: Carlos Doll M.D. 05/25/2025 7:38 PM Dictation Location: [place] [address] Electronically authenticated by: [id number] Y Date: 05/25/2025 19:38
== END 2025-05-25 13:27 | disposition home or self-care (01) ==
LOC: CT 13:26
PROVIDERS: PCP Family Medicine; Visit Provider Family Medicine
DX: J90 Pleural effusion, not elsewhere classified (principal)
CPT/HCPCS: 71250

== ENCOUNTER 2025-05-28 13:45 | Outpatient (OUT) | payer MEDICARE, SELFPAY ==
--- OUTSIDE RECORDS SUMMARY | 2024-12-07 07:00 | XMS_ITS | Encounter Summary ---
Author Name [facility] [facility] Address [address] [place] [address] Care Team Providers Care Cognos Administrator Name Role Phone IRIS ROBLERO Primary Care Provider Unavail able Insurance Providers: All historical and current Section Date Range: From patient's date of to the date document was created. This section includes the names of all active insurance providers for the patient. Insurance Provider Type of Coverage Plan Name Start of Policy Coverage End of Policy Coverage Group Number Member ID Insurance Provider's Telephone Number Policy Henry's Name Patient's Relationship to Policy Henry AARP MED SUPP MEDIGAP PLAN C PLAN C Nov 15, 2016 PLAN C [id number] [phone] JO ZimmerNADIR PATIENT MEDICARE (WNR) MEDICARE (M) PART B Jan 14, 2004 PART B [id number] JO ZimmerNADIR PATIENT MEDICARE (WNR) MEDICARE (M) PART A Jan 14, 2004 PART A [id number] JO ZimmerNADIR PATIENT Selected Encounter This section includes the information on record at [place] for the Encounter. Date/Time Encounter Type Encounter Description Reason Provider Source Dec 07, 2024 11:00 AM [facility] FACILITY FEE PRIMARY CARE/MEDICINE ICD-10-CM E11.9 Type 2 diabetes mellitus without complications DACIA ZAVALETA Encounter Template Text not used by [place] Assessments - Encounter Diagnoses This section includes the primary and secondary diagnoses documented for the Encounter. Date/Time Primary/Secondary Diagnosis Diagnosis Name Provider Source Dec 07, 2024 11:25 AM PRIMARY Type 2 diabetes mellitus without complications [facility] Social History: Smoking Status (Most current) and Tobacco Use (All prior to encounter date) This section includes the most current, and the historical, smoking and tobacco- related health factors from the [place] facility where the Encounter took place. Current Smoking Status This section includes the most current smoking, or tobacco-related health factor, from the [place] facility where the Encounter took place. Date/Time Current Smoking Status Comment Jasmin morfiny Dec 07, 2024 11:00 AM VA-TOBACCO USE FORMER CIGARETTES [facility] Tobacco Use History This section includes a history of the smoking, or tobacco-related health factors, that were collected on or before the date of the Encounter. The data comes from the [place] facility where the Encounter took place. Date/Time Smoking Status/Tobacco Use Comment Brian ernst Dec 07, 2024 11:00 AM VA-TOBACCO USE FORMER CIGARETTES [facility] Oct 21, 2023 03:00 PM VA-TOBACCO FORMER USER [facility] Oct 21, 2023 03:00 PM VA-TOBACCO QUIT 15 YRS OR MORE [facility] Nov 12, 2022 01:30 PM VA-TOBACCO FORMER USER [facility] Nov 12, 2022 01:30 PM VA-TOBACCO QUIT 15 YRS OR MORE [facility] Oct 31, 2021 09:00 AM VA-TOBACCO FORMER USER [facility] Oct 31, 2021 09:00 AM VA-TOBACCO QUIT 15 YRS OR MORE [facility] Nov 06, 2020 02:30 PM VA-TOBACCO FORMER USER [facility] Nov 06, 2020 02:30 PM VA-TOBACCO QUIT 15 YRS OR MORE [facility] Nov 04, 2018 09:26 AM VA-TOBACCO FORMER USER [facility] Nov 04, 2018 09:26 AM VA-TOBACCO QUIT 15 YRS OR MORE [facility] Nov 04, 2018 08:47 AM VA-TOBACCO NEVER USED [facility] Nov 05, 2017 10:43 AM QUIT TOBACCO >7 YEARS AGO [facility] Encounter Notes: All associated encounter notes This section contains the clinical notes associated to the Encounter. Date/Time Encounter Note(s) Provider Source Dec 07, 2024 10:55 AM PRIMARY CARE NURSI DAMARIS NOTE: LOCAL TITLE: OUTPATIENT NURSING INTAKE NOTE (T) STANDARD TITLE: PRIMARY CARE NURSING NOTE DATE OF NOTE: DEC 07, 2024@10:55 ENTRY DATE: DEC 07, 2024@10:55:28 AUTHOR: DACIA ZAVALETA COSIGNER: URGENCY: STATUS: COMPLETED Hemoglobin A1C Results: Collection DT Specimen Test Name Result Units Ref Range 10/17/2024 13:26 BLOOD HEMOGLOBIN A1C 10.1 H % 3.6 - 5.7 Comment: Values obtained from A1C measurements can vary. For typical A1C Comment: assays, a reported value of 7.0 could actually be between 6.72 and Comment: 7.28 if measured by a reference method. A reported value of 9.0 Comment: could actually be between 8.73 and 9.27. Ref: Comment: [email or web address] 10/21/2023 14:27 BLOOD HEMOGLOBIN A1C 6.8 H % 3.6 - 5.7 Comment: Values obtained from A1C measurements can vary. For typical A1C Comment: assays, a reported value of 7.0 could actually be between 6.72 and Comment: 7.28 if measured by a reference method. A reported value of 9.0 Comment: could actually be between 8.73 and 9.27. Ref: Comment: [email or web address] 10/16/2022 10:09 BLOOD HEMOGLOBIN A1C 6.7 H % 3.6 - 5.7 Review Allergies Allergies reviewed and updated per protocol. ALLERGIES/ADVERSE REACTIONS Type: DRUG Date/Time Reactant Severity Reaction 11/05/2017 11:05 INTRAVASCULAR CONT UNKNOWN 11/05/2017 10:48 TRANSDERMAL NITROG HYPOTENSION MEDICATION LIST REVIEW REPORT Patient states no change in documented OTC/Herbals at this visit. 1. Has the patient been feeling sad or distressed? No 2. Has the patient been having personal or family problems? No 3. Has the patient been experiencing worry and/or stress? No 4. Has the patient been having problems with drugs and/or alcohol? No 5. [place] [facility] pocket card was provided to patient. No/patient declined [facility] ([place] [place] [employer]) What matters most to you? Comment: My health Clinical Reminders Activity Advance Directive Education Screen: Patient received information regarding Advance Directives: No - Patient declined information at this time. Patient states AD's are in place. Alcohol Use Screen (AUDIT-C): Alcohol Screen: SCREEN FOR ALCOHOL (AUDIT-C) An alcohol screening test (AUDIT-C) was negative (score=1). 1. How often did you have a drink containing alcohol in the past year? Consider a drink to be a 12 ounce can or bottle of regular beer, 8 ounces of malt liquor, a 5 ounce glass of table wine, or a 1.5 ounce shot of liquor (like scotch, gin, or vodka). Monthly or less 2. How many drinks containing alcohol did you have on a typical day when you were drinking in the past year? One or two drinks 3. How often did you have six or more drinks on one occasion in the past year? Never COVID-19 Immunization: Refused Pfizer Monovalent COVID-19 vaccine Immunization: COVID-19 (PFIZER), MRNA, LNP-S, PF, AUDREY-SUCROSE, 30 MCG/0.3 ML (AGES 12+ YEARS) Refusal Reason: PATIENT DECISION Patient refuses all immunization(s) in the COVID-19 group Date Documented: 12/07/24 10:57 Depression Screening: Perform PHQ-2 A PHQ-2 screen was performed. The score was 0 which is a negative screen for depression. Over the past two weeks, how often have you been bothered by the following problems? 1. Little interest or pleasure in doing things Not at all 2. Feeling down, depressed, or hopeless Not at all Fall Screen: Patient was asked if he/she has had any falls within the past 12 months. Patients states no falls in past 12 months. Teaching Method: Verbal discussion Education Topic: Falls Risk Level of Understanding: Good Foot Exam: PAVE: The foot check was not completed. : Patient declines and states he sees Dr. Dc every 6 months for foot check. Frail/Elderly Screen: ADL Screen - [place] Index of [place] in Activities of Daily Living Record INDEX of ADL. Score = 18 1. Bathing: either sponge bath, tub bath or shower. Receives no assistance (gets in and out of tub by self, if tub is usual means of bathing). 2. Dressing: gets clothes from closets and drawers, including under-clothes, outer garments and using fasteners (including braces if worn). Gets clothes and dresses self without assistance. 3. Toileting: going to the toilet room for bowel and urine elimination; cleaning self after elimination and arranging clothes. (May use cane, walker, or wheelchair, and manage bedpan or commode, emptying same next morning). No assistance needed. 4. Transfer: Moves in and out of bed, or chair, without assistance (may use support object like cane or walker). 5. Continence: Controls urination and bowel movement completely by self. 6. Feeding: Feeds self without assistance. IADL Screen - [place] Instrumental Activities of Daily Living Scale Ability to use telephone: (1 point) Operates Telephone on own initiative; looks up and dials numbers. Shopping: (1 point) Takes care of all shopping needs independently. Food preparation: (1 point) Plans, prepares, and serves adequate meals independently. Housekeeping: (1 point) Maintains house alone with occasional assistance (heavy work). Laundry: (1 point) Does personal laundry completely. Mode of transportation: (1 point) Travels independently on public transportation or drives own car. Responsibility for own medications: (1 point) Is responsible for taking medications in correct dosages at correct times. Ability to handle finances: (1 point) Manages financial matters independently (budgets, writes checks, pays rent and bills, goes to bank); collects and keeps track of income. Total score: 8 points 8 = High function, independent 0 = Low function, dependent Homelessness/Food Insecurity Screen: In the past 2 months, have you been living in stable housing that you own, rent, or stay in as part of a household? Yes - Living in stable housing. Are you worried or concerned that in the next 2 months you may NOT have stable housing that you own, rent, or stay in as part of a household? No - Not worried about housing near future The reports the following: Within the past 12 months, you worried whether your food would run out before you got money to buy more. Never true Within the past 12 months, the food you bought just didn't last and you didn't have money to get more. Never true Influenza Immunization: The patient has received the seasonal influenza vaccine for the current season at another location. Documented: INFLUENZA, UNSPECIFIED FORMULATION Historical Date Administered: Aug 2024 Exact date unknown Outside Location: DR. Sung Information Source: FROM PATIENT'S RECALL Learning Assessment: LEARNING NEEDS ASSESSMENT: I. Learning Preference: Visual II. Barriers to Learning: No Barriers to Learning III. Social Influences Related to Educational Needs: No social barriers to learning IV. Readiness to Learn: Patient Appears ready to learn. Suicide Screen: C-SSRS Screening [place] Suicide Severity Rating Scale (C-SSRS) screener 1. Over the past month, have you wished you were or wished you could go to sleep and not wake up? No 2. Over the past month, have you had any actual thoughts of killing yourself? No 3. Over the past month, have you been thinking about how you might do this? Response not required due to responses to other questions. 4. Over the past month, have you had these thoughts and had some intention of acting on them? Response not required due to responses to other questions. 5. Over the past month, have you started to work out or worked out the details of how to kill yourself? Response not required due to responses to other questions. 6. If yes, at any time in the past month did you intend to carry out this plan? Response not required due to responses to other questions. 7. In your lifetime, have you ever done anything, started to do anything, or prepared to do anything to end your life (for example, collected pills, obtained a gun, gave away valuables, went to the roof but didn't jump)? No 8. If YES, was this within the past 3 months? Response not required due to responses to other questions. Tobacco Use Screening: The patient is a former cigarette smoker. The patient has never used other types of tobacco. /dottie/ DACIA ZAVALETA LICENSED PRACTICAL NURSE Signed: 12/07/2024 11:04 DACIA ZAVALETA [facility]
--- OUTSIDE RECORDS SUMMARY | 2025-05-08 08:54 | XMS_ITS | Continuity of Care Document ---
Author Name [facility] Organization [facility] Care Team Providers Care Airbrush Artist Technical Name Role Phone [facility] Unavailable Unavailable Problems Combined list of problems from Department of Defense and Veterans [facility] facilities. It does not include entries that were removed or entered in error. Problem Status Onset Date Problem Type Date of Resolution Comments Source Atrial fibrillation Active Condition [facility] Chronic kidney disease stage 3 Active Condition [facility] Chronic kidney disease stage 3B Active Condition [facility] Congestive heart failure Active Condition [facility] Diabetes mellitus Active Condition [facility] Essential hypertension Active Condition [facility] Hearing loss Active Condition [facility] Hyperlipidemia Active [facility] Irritable bowel Active Condition [facility] Sensorineural hearing loss, bilateral Active Condition [facility] 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 Medication Details Route Status Patient Instructions Prescription Expires Prescription Number Last Dispense Date Ordering Provider Order Date Order Qty Source ACETAMINOPH EN/CHLORPHE NIRAMINE TAB TAKE BY MOUTH Q6H PRN ORAL ACTIVE [facility] 2018 [facility] ACYCLOVIR 200MG CAP TAKE 2 CAPSULES BY MOUTH TWICE A DAY ORAL ACTIVE LEX [facility]ANT[facility] 2016 [facility] APIXABAN 5MG TAB TAKE ONE TABLET BY MOUTH TWICE A DAY ORAL ACTIVE LEX [facility]ANT[facility] 2016 [facility] ASPIRIN 81MG TAB,EC TAKE ONE TABLET BY MOUTH EVERY DAY ORAL ACTIVE LEX CANTU 2016 [facility] CLONIDINE HCL 0.1MG TAB TAKE ONE TABLET BY MOUTH TWICE A DAY ORAL ACTIVE LEX CANTU 2018 [facility] DICYCLOMINE HCL 20MG TAB TAKE ONE-HALF TABLET BY MOUTH TWICE A DAY NEEDED ORAL ACTIVE LEX CANTU R 2018 [facility] DULAGLUTIDE 0.75MG/0.5M L INJ,SOLN,PE N INJECT CONTENT OF 1 PEN SUBCUTAN EOUSLY EVERY WEEK SUBCUT ANEOUS ACTIVE LEX CANTU R 2021 LUCRECIA [facility] EMPAGLIFLOZ IN 25MG TAB TAKE ONE TABLET BY MOUTH EVERY DAY ORAL SUSPEND ED 05/08/2026 [id number] 5 Kee ROBLERO A 2024 90 [facility] EMPAGLIFLOZ IN 25MG TAB TAKE ONE TABLET BY MOUTH EVERY DAY ORAL DISCONT INUED 08/15/2025 [id number] LEX CANTU R 2024 90 [facility]CREC[facility] EMPAGLIFLOZ IN 25MG TAB TAKE ONE TABLET BY MOUTH EVERY DAY ORAL DISCONT INUED 08/15/2025 [id number] LEX CANTU R 2023 90 [facility] EMPAGLIFLOZ IN 25MG TAB TAKE ONE TABLET BY MOUTH EVERY DAY ORAL DISCONT INUED 09/20/2024 [id number] LEX CANTU R 2023 90 [facility] EMPAGLIFLOZ IN 25MG TAB TAKE ONE TABLET BY MOUTH EVERY DAY ORAL DISCONT INUED 09/20/2024 [id number] LEX CANTU R 2023 90 [facility] EZETIMIBE 10MG TAB TAKE ONE TABLET BY MOUTH EVERY DAY ORAL ACTIVE LEX CANTU 2018 [facility] FERROUS SO4 325MG TAB TAKE ONE TABLET BY MOUTH TWICE A DAY ORAL ACTIVE LEX CANTU 2016 [facility] FLUTICASONE PROPIONATE 50MCG/SPRAY SOLN,NASAL, 16GM USE 2 SPRAYS IN EACH NOSTRIL EVERY DAY NASAL ACTIVE LEX CANTU 2016 [facility] FUROSEMIDE 40MG TAB TAKE ONE TABLET BY MOUTH TWICE A DAY ORAL ACTIVE LEX CANTU R 2018 [facility] GABAPENTIN 300MG CAP TAKE 2 CAPSULES BY MOUTH TWICE A DAY ORAL ACTIVE LEX CANTU R 2018 [facility] HYDRALAZINE HCL 50MG TAB TAKE TWO TABLETS BY MOUTH TWICE A DAY ORAL ACTIVE LEX [facility]ANT[facility] 2016 [facility] LABETALOL TAB TAB TAKE 150MG BY MOUTH TWICE A DAY ORAL ACTIVE LEX CANTU R 2016 [facility] LACTOBACILL US ACIDOPHILUS TAB,CHEWABL E CHEW AND SWALLOW ONE TABLET BY MOUTH EVERY DAY ORAL ACTIVE LEX CANTU R 2022 [facility] MAGNESIUM OXIDE 250MG TAB TAKE ONE TABLET BY MOUTH TWICE A DAY ORAL ACTIVE LEX CANTU R 2019 [place] METFORMIN HCL 1000MG TAB TAKE ONE TABLET BY MOUTH TWICE A DAY WITH MEALS ORAL ACTIVE LEX [facility]ANTU 2018 [facility] METOCLOPRAM RENZO HCL 5MG TAB TAKE ONE TABLET BY MOUTH EVERY EVENING ORAL ACTIVE LEX CANTU R 2016 [facility] NIFEDIPINE (EQV-CC) 60MG TAB,SA TAKE ONE TABLET BY MOUTH TWICE A DAY ORAL ACTIVE LEX CANTU 2016 [facility] OMEPRAZOLE 20MG CAP,EC TAKE 2 CAPSULES BY MOUTH EVERY MORNING, ON AN EMPTY STOMACH ORAL ACTIVE LEX CANTU 2016 [facility] PIOGLITAZON E HCL 30MG TAB TAKE ONE TABLET BY MOUTH EVERY DAY ORAL ACTIVE LEX CANTU R 2018 [facility] POTASSIUM CHLORIDE 20MEQ TAB,SA (DISPERSIBL E) TAKE ONE TABLET BY MOUTH TWICE A DAY ORAL ACTIVE LEX CANTU 2018 [facility] PRIMIDONE 50MG TAB TAKE ONE TABLET BY MOUTH EVERY DAY ORAL ACTIVE LEX CANTU 2016 [facility] SITAGLIPTIN (EQV-ZITUVI O) 50MG TAB TAKE ONE TABLET BY MOUTH EVERY DAY FOR TYPE 2 DIABETES MELLITUS DISPE NSE IN ORIGINAL CONTAINE R ORAL ACTIVE 03/17/2026 [id number] Kee ROBLERO 2024 90 [facility] SITAGLIPTIN (EQV-ZITUVI O) 50MG TAB TAKE ONE TABLET BY MOUTH EVERY DAY FOR TYPE 2 DIABETES MELLITUS ORAL DISCONT INUED (EDIT) 11/21/2025 [id number] REUBENCHRISTIE DINH 2024 90 [facility] SITAGLIPTIN (EQV-ZITUVI O) 50MG TAB TAKE ONE TABLET BY MOUTH EVERY DAY FOR TYPE 2 DIABETES MELLITUS ORAL DISCONT INUED 12/08/2024 [id number] LEX CANTU 2023 90 [facility] SITAGLIPTIN (EQV-ZITUVI O) 50MG TAB TAKE ONE TABLET BY MOUTH EVERY DAY FOR TYPE 2 DIABETES MELLITUS ORAL DISCONT INUED 04/06/2025 [id number] LEX CANTU 2023 90 [facility] TAMSULOSIN HCL 0.4MG CAP TAKE 1 CAPSULE BY MOUTH AT BEDTIME ORAL ACTIVE LEX CANTU 2016 [facility] Allergies, Adverse Reactions, Alerts Combined list of allergies from Department of Defense and Veterans Affairs facilities. It does not include entries that were removed or entered in error. Substance Category Reaction Severity Reaction type Status Date Reported Comments Source INTRAVASCULAR CONTRAST MEDIA Propensity to adverse reactions to drug (finding) active 7 [facility] TRANSDERMAL NITROGLYCERIN PATCH Propensity to adverse reactions to drug (finding) Low blood pressure active 7 [facility] Immunizations Combined list of available immunizations from the Department of Defense and Veterans Affairs facilities. Immunization Series Date Given Administered By Site Reaction Lot Number CVX Code Drug Signal Operator Technical Status Comments Source INFLUENZA, UNSPECIFIED FORMULATION 2023 88 complet ed HISTORICA L INFORMATI ON - FROM PATIENT'S RECALL, [facility] RSV, BIVALENT, PROTEIN SUBUNIT RSVPREF, DILUENT RECONSTITUTED , 0.5 ML, PF 2022 DACIA ZAVALETA LEFT DELTO ID [id number] 305 complet ed [facility] [place] [facility] [place], Patient tolerated injection well. [facility] INFLUENZA, UNSPECIFIED FORMULATION 2022 88 complet ed HISTORICA L INFORMATI ON - FROM PATIENT'S RECALL, [facility] COVID-19 (PFIZER), MRNA, LNP-S, PF, AUDREY-SUCROSE, 30 MCG/0.3 ML (AGES 12+ YEARS) 2022 309 complet ed HISTORICA L INFORMATI ON - FROM OTHER REGISTRY, [facility] COVID-19 (PFIZER), MRNA, LNP-S, BIVALENT BOOSTER, PF, 30 MCG/0.3 ML DOSE 2021 300 complet ed Booster for Series, HISTORICA L INFORMATI ON - SOURCE UNSPECIFI ED, Per COVID-19 Vaccinati on Record Card Lot#: [id number] Mfr: PFIZER, INC [facility] INFLUENZA, UNSPECIFIED FORMULATION 2021 88 complet ed HISTORICA L INFORMATI ON - SOURCE UNSPECIFI ED, Per patient [facility] INFLUENZA, UNSPECIFIED FORMULATION 2020 88 complet ed [facility] COVID-19 (PFIZER), MRNA, LNP-S, PF, 30 MCG/0.3 ML DOSE 3 2020 208 complet ed HISTORICA L INFORMATI ON - SOURCE UNSPECIFI ED, Per COVID-19 Vaccinati on Record Card Mfr: PFIZER, INC [facility] COVID-19 (PFIZER), MRNA, LNP-S, PF, 30 MCG/0.3 ML DOSE 2 2020 208 complet ed [facility] COVID-19 (PFIZER), MRNA, LNP-S, PF, 30 MCG/0.3 ML DOSE 1 2020 208 complet ed [facility] ZOSTER RECOMBINANT 2019 187 complet ed [facility] INFLUENZA, TRIVALENT, ADJUVANTED 2 2019 168 complet ed HISTORICA L INFORMATI ON - FROM OTHER REGISTRY, [facility] INFLUENZA, UNSPECIFIED FORMULATION 2019 88 complet ed [facility] TDAP 2018 115 complet ed [facility] ZOSTER RECOMBINANT 2018 187 complet ed [facility] INFLUENZA (HISTORICAL) [address] [facility] INFLUENZA (HISTORICAL) 2017 88 complet ed Civil pcp [facility] PNEUMOCOCCAL CONJUGATE PCV 13 2016 133 complet ed Immunizat ion record received from [place], tel: , fax: [phone]. [facility] INFLUENZA (HISTORICAL) [address] Pj Olson, [facility] INFLUENZA, UNSPECIFIED FORMULATION 1 2016 88 complet ed HISTORICA L INFORMATI ON - FROM OTHER REGISTRY, [facility] ZOSTER LIVE 1 2014 121 complet ed HISTORICA L INFORMATI ON - FROM OTHER REGISTRY, [facility] PNEUMOCOCCAL POLYSACCHARID E PPV23 2014 33 complet ed Immunizat ion record received from [place], tel: , fax: . [facility] PNEUMOCOCCAL, UNSPECIFIED FORMULATION 2014 109 complet ed Immunizat ion record received from [place], tel: , fax: [phone]. [facility] Results Combined list of recent chemistry, hematology and other laboratory results from Department of Defense and Veterans Affairs, ranging from 15 months to all on record, depending upon the facility. Order Name Results Value Reference Range Date Interpretation Specimen Comments Source CBC LEUKOCYTES [#/VOLUME] IN BLOOD BY AUTOMATED COUNT 6.6 10*3/u L 3.6 - 11.0 10/17 Specimen Type: BLOOD No comment entered. Ordering Provider: NATALIE CANTU Report Released Date/Time: Oct 21, 2023 03:23 PM Reporting Lab: [address] [phone] Performing Lab: [address] [address] [facility] CBC ERYTHROCYTE S [#/VOLUME] IN BLOOD BY AUTOMATED COUNT 4.50 10*6/u L 4.47 - 5.83 10/17 Specimen Type: BLOOD No comment entered. Ordering Provider: NATALIE CANTU Report Released Date/Time: Oct 21, 2023 03:23 PM Reporting Lab: [address] [address] Performing Lab: [place] [phone] [facility] CBC HEMOGLOBIN [MASS/VOLUM E] IN BLOOD 15.5 g/dL 13.6 - 17.4 10/17 Specimen Type: BLOOD No comment entered. Ordering Provider: NATALIE CANTU Report Released Date/Time: Oct 21, 2023 03:23 PM Reporting Lab: [place] [phone] Performing Lab: [place] [phone] [place] [address] CBC HEMATOCRIT [VOLUME FRACTION] OF BLOOD BY AUTOMATED COUNT 45.9 40.0 - 51.0 10/17 Specimen Type: BLOOD No comment entered. Ordering Provider: NATALIE CANTU Report Released Date/Time: Oct 21, 2023 03:23 PM Reporting Lab: [place] [phone] Performing Lab: [place] [phone] [place] [address] CBC MCV [ENTITIC VOLUME] BY AUTOMATED COUNT 101.9 fL 80.0 - 96.0 10/17 H Specimen Type: BLOOD No comment entered. Ordering Provider: NATALIE CANTU Report Released Date/Time: Oct 21, 2023 03:23 PM Reporting Lab: [place] [phone] Performing Lab: [place] [phone] [facility] CBC MCH [ENTITIC MASS] BY AUTOMATED COUNT 34.3 pg 27.0 - 31.0 10/17 H Specimen Type: BLOOD No comment entered. Ordering Provider: NATALIE CANTU Report Released Date/Time: Oct 21, 2023 03:23 PM Reporting Lab: [address] [address] Performing Lab: [place] [phone] [facility] CBC MCHC [MASS/VOLUM E] BY AUTOMATED COUNT 33.7 g/dL 31.5 - 36.5 10/17 Specimen Type: BLOOD No comment entered. Ordering Provider: NATALIE CANTU R Report Released Date/Time: Oct 21, 2023 03:23 PM Reporting Lab: [address] [address] Performing Lab: [place] [phone] [facility] CBC PLATELETS [#/VOLUME] IN BLOOD BY AUTOMATED COUNT 165 10*3/u L 150 - 400 10/17 Specimen Type: BLOOD No comment entered. Ordering Provider: NATALIE CANTU R Report Released Date/Time: Oct 21, 2023 03:23 PM Reporting Lab: [place] [phone] Performing Lab: [place] [phone] [place] [address] CBC LYMPHOCYTES /100 LEUKOCYTES IN BLOOD BY AUTOMATED COUNT 11.4 21.0 - 51.0 10/17 L Specimen Type: BLOOD No comment entered. Ordering Provider: NATALIE CANTU R Report Released Date/Time: Oct 21, 2023 03:23 PM Reporting Lab: [place] [phone] Performing Lab: [place] [id number] [place] [address] CBC MONOCYTES/1 00 LEUKOCYTES IN BLOOD BY AUTOMATED COUNT 8.3 4.0 - 8.0 10/17 H Specimen Type: BLOOD No comment entered. Ordering Provider: NATALIE CANTU Report Released Date/Time: Oct 21, 2023 03:23 PM Reporting Lab: [place] [phone] Performing Lab: [place] [id number] [place] [address] CBC NUCLEATED ERYTHROCYTE S/100 LEUKOCYTES [RATIO] IN BLOOD BY MANUAL COUNT 0.0 /100{W BCs} 10/17 Specimen Type: BLOOD No comment entered. Ordering Provider: NATALIE CANTU Report Released Date/Time: Oct 21, 2023 03:23 PM Reporting Lab: [address] [address] Performing Lab: [place] [phone] [facility] CBC ERYTHROCYTE DISTRIBUTIO N WIDTH [RATIO] BY AUTOMATED COUNT 14.6 11.2 - 15.8 10/17 Specimen Type: BLOOD No comment entered. Ordering Provider: NATALIE CANTU Report Released Date/Time: Oct 21, 2023 03:23 PM Reporting Lab: [place] [phone] Performing Lab: [place] [phone] CBC NEUTROPHILS /100 LEUKOCYTES IN BLOOD BY AUTOMATED COUNT 78.0 54.0 - 78.0 10/17 Specimen Type: BLOOD No comment entered. Ordering Provider: NATALIE CANTU Report Released Date/Time: Oct 21, 2023 03:23 PM Reporting Lab: [place] [phone] Performing Lab: [address] CBC EOSINOPHILS /100 LEUKOCYTES IN BLOOD BY AUTOMATED COUNT 2.0 0.0 - 3.0 10/17 Specimen Type: BLOOD No comment entered. Ordering Provider: NATALIE CANTU Report Released Date/Time: Oct 21, 2023 03:23 PM Reporting Lab: [place] [phone] Performing Lab: [place] [phone] CBC BASOPHILS/1 00 LEUKOCYTES IN BLOOD BY AUTOMATED COUNT 0.3 0.0 - 3.0 10/17 Specimen Type: BLOOD No comment entered. Ordering Provider: NATALIE CANTU Report Released Date/Time: Oct 21, 2023 03:23 PM Reporting Lab: [place] [phone] Performing Lab: [place] [phone] CBC LYMPHOCYTES [#/VOLUME] IN BLOOD BY AUTOMATED COUNT 0.8 10*3/u L 0.8 - 5.0 10/17 Specimen Type: BLOOD No comment entered. Ordering Provider: NATALIE CANTU Report Released Date/Time: Oct 21, 2023 03:23 PM Reporting Lab: [place] [phone] Performing Lab: [place] [phone] CBC NEUTROPHILS [#/VOLUME] IN BLOOD 5.1 10*3/u L 1.9 - 8.6 10/17 Specimen Type: BLOOD No comment entered. Ordering Provider: NATALIE CANTU Report Released Date/Time: Oct 21, 2023 03:23 PM Reporting Lab: [place] [phone] Performing Lab: [place] [phone] CBC BASOPHILS [#/VOLUME] IN BLOOD BY AUTOMATED COUNT 0.0 10*3/u L 0.0 - 0.3 10/17 Specimen Type: BLOOD No comment entered. Ordering Provider: NATALIE CANTU Report Released Date/Time: Oct 21, 2023 03:23 PM Reporting Lab: [place] [phone] Performing Lab: [place] [phone] CBC MONOCYTES [#/VOLUME] IN BLOOD BY AUTOMATED COUNT 0.6 10*3/u L 0.1 - 0.9 10/17 Specimen Type: BLOOD No comment entered. Ordering Provider: NATALIE CANTU Report Released Date/Time: Oct 21, 2023 03:23 PM Reporting Lab: [place] [phone] Performing Lab: [place] [phone] CBC EOSINOPHILS [#/VOLUME] IN BLOOD BY AUTOMATED COUNT 0.1 10*3/u L 0.0 - 0.3 10/17 Specimen Type: BLOOD No comment entered. Ordering Provider: NATALIE CANTU Report Released Date/Time: Oct 21, 2023 03:23 PM Reporting Lab: [place] [phone] Performing Lab: [place] [phone] CBC PLATELET MEAN VOLUME [ENTITIC VOLUME] IN BLOOD BY AUTOMATED COUNT 10.2 fL 7.4 - 11.4 10/17 Specimen Type: BLOOD No comment entered. Ordering Provider: NATALIE CANTU Report Released Date/Time: Oct 21, 2023 03:23 PM Reporting Lab: [place] [phone] Performing Lab: [place] [phone] [place] [address] COMPREHEN SIVE METABOLIC PANEL ALBUMIN [MASS/VOLUM E] IN SERUM OR PLASMA 3.8 g/dL 3.2 - 4.6 10/17 Specimen Type: PLASMA Comment: DLDLREF RANGE: NEAR OR ABOVE OPTIMAL: 100-129 mg/dL BORDERLINE DLDLHIGH: 130-159 mg/dL HIGH: 160-189 mg/dL VERY HIGH: >=190 TRIG REF RANGE: BORDERLINE HIGH: 150-199 mg/dL HIGH: 200-499 mg/dL TRIG VERY HIGH: >=500 mg/dL CREA eGFR was calculated using the CKD-EPI 2020 equation. CHOL REF RANGE: BORDERLINE HIGH: 200-239 mg/dL HIGH: >=240 mg/dL Ordering Provider: NATALIE CANTU Report Released Date/Time: Oct 21, 2023 03:23 PM Reporting Lab: [place] [phone] Performing Lab: [place] [phone] [place] [address] COMPREHEN SIVE METABOLIC PANEL ALKALINE PHOSPHATASE [ENZYMATIC ACTIVITY/VO LUME] IN SERUM OR PLASMA 84 U/L 40 - 150 10/17 Specimen Type: PLASMA Comment: DLDLREF RANGE: NEAR OR ABOVE OPTIMAL: 100-129 mg/dL BORDERLINE DLDLHIGH: 130-159 mg/dL HIGH: 160-189 mg/dL VERY HIGH: >=190 TRIG REF RANGE: BORDERLINE HIGH: 150-199 mg/dL HIGH: 200-499 mg/dL TRIG VERY HIGH: >=500 mg/dL CREA eGFR was calculated using the CKD-EPI 2020 equation. CHOL REF RANGE: BORDERLINE HIGH: 200-239 mg/dL HIGH: >=240 mg/dL Ordering Provider: NATALIE CANTU Report Released Date/Time: Oct 21, 2023 03:23 PM Reporting Lab: [place] [phone] Performing Lab: [place] [phone] [facility] COMPREHEN SIVE METABOLIC PANEL ALANINE AMINOTRANSF ERASE [ENZYMATIC ACTIVITY/VO LUME] IN SERUM OR PLASMA 21 U/L <55 - 55 10/17 Specimen Type: PLASMA Comment: DLDLREF RANGE: NEAR OR ABOVE OPTIMAL: 100-129 mg/dL BORDERLINE DLDLHIGH: 130-159 mg/dL HIGH: 160-189 mg/dL VERY HIGH: >=190 TRIG REF RANGE: BORDERLINE HIGH: 150-199 mg/dL HIGH: 200-499 mg/dL TRIG VERY HIGH: >=500 mg/dL CREA eGFR was calculated using the CKD-EPI 2020 equation. CHOL REF RANGE: BORDERLINE HIGH: 200-239 mg/dL HIGH: >=240 mg/dL Ordering Provider: NATALIE CANTU Report Released Date/Time: Oct 21, 2023 03:23 PM Reporting Lab: [place] [phone] Performing Lab: [place] [phone] [place] [address] COMPREHEN SIVE METABOLIC PANEL ASPARTATE AMINOTRANSF ERASE [ENZYMATIC ACTIVITY/VO LUME] IN SERUM OR PLASMA 23 U/L 5 - 34 10/17 Specimen Type: PLASMA Comment: DLDLREF RANGE: NEAR OR ABOVE OPTIMAL: 100-129 mg/dL BORDERLINE DLDLHIGH: 130-159 mg/dL HIGH: 160-189 mg/dL VERY HIGH: >=190 TRIG REF RANGE: BORDERLINE HIGH: 150-199 mg/dL HIGH: 200-499 mg/dL TRIG VERY HIGH: >=500 mg/dL CREA eGFR was calculated using the CKD-EPI 2020 equation. CHOL REF RANGE: BORDERLINE HIGH: 200-239 mg/dL HIGH: >=240 mg/dL Ordering Provider: NATALIE CANTU Report Released Date/Time: Oct 21, 2023 03:23 PM Reporting Lab: [place] [phone] Performing Lab: [place] [phone] [facility] COMPREHEN SIVE METABOLIC PANEL UREA NITROGEN [MASS/VOLUM E] IN SERUM OR PLASMA 28 mg/dL 8.4 - 25.7 10/17 H Specimen Type: PLASMA Comment: DLDLREF RANGE: NEAR OR ABOVE OPTIMAL: 100-129 mg/dL BORDERLINE DLDLHIGH: 130-159 mg/dL HIGH: 160-189 mg/dL VERY HIGH: >=190 TRIG REF RANGE: BORDERLINE HIGH: 150-199 mg/dL HIGH: 200-499 mg/dL TRIG VERY HIGH: >=500 mg/dL CREA eGFR was calculated using the CKD-EPI 2020 equation. CHOL REF RANGE: BORDERLINE HIGH: 200-239 mg/dL HIGH: >=240 mg/dL Ordering Provider: NATALIE CANTU Report Released Date/Time: Oct 21, 2023 03:23 PM Reporting Lab: [place] [phone] Performing Lab: [place] [phone] [place] [address] COMPREHEN SIVE METABOLIC PANEL CALCIUM [MASS/VOLUM E] IN SERUM OR PLASMA 9.3 mg/dL 8.8 - 10.0 10/17 Specimen Type: PLASMA Comment: DLDLREF RANGE: NEAR OR ABOVE OPTIMAL: 100-129 mg/dL BORDERLINE DLDLHIGH: 130-159 mg/dL HIGH: 160-189 mg/dL VERY HIGH: >=190 TRIG REF RANGE: BORDERLINE HIGH: 150-199 mg/dL HIGH: 200-499 mg/dL TRIG VERY HIGH: >=500 mg/dL CREA eGFR was calculated using the CKD-EPI 2020 equation. CHOL REF RANGE: BORDERLINE HIGH: 200-239 mg/dL HIGH: >=240 mg/dL Ordering Provider: NATALIE CANTU Report Released Date/Time: Oct 21, 2023 03:23 PM Reporting Lab: [place] [phone] Performing Lab: [place] [phone] [facility] COMPREHEN SIVE METABOLIC PANEL CREATININE [MASS/VOLUM E] IN SERUM OR PLASMA 1.7 mg/dL 0.72 - 1.25 10/17 H Specimen Type: PLASMA Comment: DLDLREF RANGE: NEAR OR ABOVE OPTIMAL: 100-129 mg/dL BORDERLINE DLDLHIGH: 130-159 mg/dL HIGH: 160-189 mg/dL VERY HIGH: >=190 TRIG REF RANGE: BORDERLINE HIGH: 150-199 mg/dL HIGH: 200-499 mg/dL TRIG VERY HIGH: >=500 mg/dL CREA eGFR was calculated using the CKD-EPI 2020 equation. CHOL REF RANGE: BORDERLINE HIGH: 200-239 mg/dL HIGH: >=240 mg/dL Ordering Provider: NATALIE CANTU Report Released Date/Time: Oct 21, 2023 03:23 PM Reporting Lab: [place] [phone] Performing Lab: [place] [phone] [place] [address] COMPREHEN SIVE METABOLIC PANEL CARBON DIOXIDE, TOTAL [MOLES/VOLU ME] IN SERUM OR PLASMA 25 mmol/L 23 - 31 10/17 Specimen Type: PLASMA Comment: DLDLREF RANGE: NEAR OR ABOVE OPTIMAL: 100-129 mg/dL BORDERLINE DLDLHIGH: 130-159 mg/dL HIGH: 160-189 mg/dL VERY HIGH: >=190 TRIG REF RANGE: BORDERLINE HIGH: 150-199 mg/dL HIGH: 200-499 mg/dL TRIG VERY HIGH: >=500 mg/dL CREA eGFR was calculated using the CKD-EPI 2020 equation. CHOL REF RANGE: BORDERLINE HIGH: 200-239 mg/dL HIGH: >=240 mg/dL Ordering Provider: NATALIE CANTU Report Released Date/Time: Oct 21, 2023 03:23 PM Reporting Lab: [place] [phone] Performing Lab: [place] [id number] [place] [address] COMPREHEN SIVE METABOLIC PANEL GLUCOSE [MASS/VOLUM E] IN SERUM OR PLASMA 298 mg/dL 82 - 115 10/17 H Specimen Type: PLASMA Comment: DLDLREF RANGE: NEAR OR ABOVE OPTIMAL: 100-129 mg/dL BORDERLINE DLDLHIGH: 130-159 mg/dL HIGH: 160-189 mg/dL VERY HIGH: >=190 TRIG REF RANGE: BORDERLINE HIGH: 150-199 mg/dL HIGH: 200-499 mg/dL TRIG VERY HIGH: >=500 mg/dL CREA eGFR was calculated using the CKD-EPI 2020 equation. CHOL REF RANGE: BORDERLINE HIGH: 200-239 mg/dL HIGH: >=240 mg/dL Ordering Provider: NATALIE CANTU Report Released Date/Time: Oct 21, 2023 03:23 PM Reporting Lab: [address] [phone] Performing Lab: [place] [phone] [facility] COMPREHEN SIVE METABOLIC PANEL PROTEIN [MASS/VOLUM E] IN SERUM OR PLASMA 6.5 g/dL 6.4 - 8.3 10/17 Specimen Type: PLASMA Comment: DLDLREF RANGE: NEAR OR ABOVE OPTIMAL: 100-129 mg/dL BORDERLINE DLDLHIGH: 130-159 mg/dL HIGH: 160-189 mg/dL VERY HIGH: >=190 TRIG REF RANGE: BORDERLINE HIGH: 150-199 mg/dL HIGH: 200-499 mg/dL TRIG VERY HIGH: >=500 mg/dL CREA eGFR was calculated using the CKD-EPI 2020 equation. CHOL REF RANGE: BORDERLINE HIGH: 200-239 mg/dL HIGH: >=240 mg/dL Ordering Provider: NATALIE CANTU R Report Released Date/Time: Oct 21, 2023 03:23 PM Reporting Lab: [place] [id number] Performing Lab: [place] [phone] [place] [address] COMPREHEN SIVE METABOLIC PANEL SODIUM [MOLES/VOLU ME] IN SERUM OR PLASMA 137 mmol/L 136 - 145 10/17 Specimen Type: PLASMA Comment: DLDLREF RANGE: NEAR OR ABOVE OPTIMAL: 100-129 mg/dL BORDERLINE DLDLHIGH: 130-159 mg/dL HIGH: 160-189 mg/dL VERY HIGH: >=190 TRIG REF RANGE: BORDERLINE HIGH: 150-199 mg/dL HIGH: 200-499 mg/dL TRIG VERY HIGH: >=500 mg/dL CREA eGFR was calculated using the CKD-EPI 2020 equation. CHOL REF RANGE: BORDERLINE HIGH: 200-239 mg/dL HIGH: >=240 mg/dL Ordering Provider: NATALIE CANTU Report Released Date/Time: Oct 21, 2023 03:23 PM Reporting Lab: [address] [id number] Performing Lab: [place] [id number] [facility] COMPREHEN SIVE METABOLIC PANEL CHLORIDE [MOLES/VOLU ME] IN SERUM OR PLASMA 103 mmol/L 98 - 107 10/17 Specimen Type: PLASMA Comment: DLDLREF RANGE: NEAR OR ABOVE OPTIMAL: 100-129 mg/dL BORDERLINE DLDLHIGH: 130-159 mg/dL HIGH: 160-189 mg/dL VERY HIGH: >=190 TRIG REF RANGE: BORDERLINE HIGH: 150-199 mg/dL HIGH: 200-499 mg/dL TRIG VERY HIGH: >=500 mg/dL CREA eGFR was calculated using the CKD-EPI 2020 equation. CHOL REF RANGE: BORDERLINE HIGH: 200-239 mg/dL HIGH: >=240 mg/dL Ordering Provider: NATALIE CANTU R Report Released Date/Time: Oct 21, 2023 03:23 PM Reporting Lab: [place] [phone] Performing Lab: [place] [id number] [place] [address] COMPREHEN SIVE METABOLIC PANEL BILIRUBIN.T OTAL [MASS/VOLUM E] IN SERUM OR PLASMA 0.5 mg/dL 0.2 - 1.2 10/17 Specimen Type: PLASMA Comment: DLDLREF RANGE: NEAR OR ABOVE OPTIMAL: 100-129 mg/dL BORDERLINE DLDLHIGH: 130-159 mg/dL HIGH: 160-189 mg/dL VERY HIGH: >=190 TRIG REF RANGE: BORDERLINE HIGH: 150-199 mg/dL HIGH: 200-499 mg/dL TRIG VERY HIGH: >=500 mg/dL CREA eGFR was calculated using the CKD-EPI 2020 equation. CHOL REF RANGE: BORDERLINE HIGH: 200-239 mg/dL HIGH: >=240 mg/dL Ordering Provider: NATALIE CANTU Report Released Date/Time: Oct 21, 2023 03:23 PM Reporting Lab: [place] [phone] Performing Lab: [place] [phone] [place] [address] COMPREHEN SIVE METABOLIC PANEL POTASSIUM [MOLES/VOLU ME] IN SERUM OR PLASMA 4.8 mmol/L 3.5 - 5.1 10/17 Specimen Type: PLASMA Comment: DLDLREF RANGE: NEAR OR ABOVE OPTIMAL: 100-129 mg/dL BORDERLINE DLDLHIGH: 130-159 mg/dL HIGH: 160-189 mg/dL VERY HIGH: >=190 TRIG REF RANGE: BORDERLINE HIGH: 150-199 mg/dL HIGH: 200-499 mg/dL TRIG VERY HIGH: >=500 mg/dL CREA eGFR was calculated using the CKD-EPI 2021 equation. CHOL REF RANGE: BORDERLINE HIGH: 200-239 mg/dL HIGH: >=240 mg/dL Ordering Provider: NATALIE CANTU Report Released Date/Time: Oct 21, 2023 03:23 PM Reporting Lab: [place] [phone] Performing Lab: [place] [phone] [facility] ANION GAP IN SERUM OR PLASMA 13.8 mmol/L - 10/17 Specimen Type: PLASMA Comment: DLDLREF RANGE: NEAR OR ABOVE OPTIMAL: 100-129 mg/dL BORDERLINE DLDLHIGH: 130-159 mg/dL HIGH: 160-189 mg/dL VERY HIGH: >=190 TRIG REF RANGE: BORDERLINE HIGH: 150-199 mg/dL HIGH: 200-499 mg/dL TRIG VERY HIGH: >=500 mg/dL CREA eGFR was calculated using the CKD-EPI 2020 equation. CHOL REF RANGE: BORDERLINE HIGH: 200-239 mg/dL HIGH: >=240 mg/dL Ordering Provider: NATALIE CANTU Report Released Date/Time: Oct 21, 2023 03:23 PM Reporting Lab: [place] [phone] Performing Lab: [place] [phone] [place] [address] METABOLIC PANEL GLOMERULAR FILTRATION RATE/1.73 SQ M.PREDICTED [VOLUME RATE/AREA] IN SERUM, PLASMA OR BLOOD BY CREATININE- BASED FORMULA (CKD-EPI 2020) 39.0 mL/min 10/17 Specimen Type: PLASMA Comment: DLDLREF RANGE: NEAR OR ABOVE OPTIMAL: 100-129 mg/dL BORDERLINE DLDLHIGH: 130-159 mg/dL HIGH: 160-189 mg/dL VERY HIGH: >=190 TRIG REF RANGE: BORDERLINE HIGH: 150-199 mg/dL HIGH: 200-499 mg/dL TRIG VERY HIGH: >=500 mg/dL CREA eGFR was calculated using the CKD-EPI 2020 equation. CHOL REF RANGE: BORDERLINE HIGH: 200-239 mg/dL HIGH: >=240 mg/dL Ordering Provider: NATALIE CANTU Report Released Date/Time: Oct 21, 2023 03:23 PM Reporting Lab: [place] [phone] Performing Lab: [address] [phone] [facility] HEMOGLOBI N A1C HEMOGLOBIN A1C/HEMOGLO BIN.TOTAL IN BLOOD 10.1 3.6 - 5.7 10/17 H Specimen Type: BLOOD Comment: Values obtained from A1C measurement s can vary. For typical A1C assays, a reported value of 7.0 could actually be between 6.72 and 7.28 if measured by a reference method. A reported value of 9.0 could actually be between 8.73 and 9.27. Ref: http://www. ngsp.org/[place] Pdata.asp Ordering Provider: NATALIE CANTU R Report Released Date/Time: Oct 21, 2023 03:23 PM Reporting Lab: [address] [address] Performing Lab: [place] [phone] [facility] LIPID PROFILE CHOLESTEROL [MASS/VOLUM E] IN SERUM OR PLASMA 229 mg/dL <199 - 199 10/17 H Specimen Type: PLASMA Comment: DLDLREF RANGE: NEAR OR ABOVE OPTIMAL: 100-129 mg/dL BORDERLINE DLDLHIGH: 130-159 mg/dL HIGH: 160-189 mg/dL VERY HIGH: >=190 TRIG REF RANGE: BORDERLINE HIGH: 150-199 mg/dL HIGH: 200-499 mg/dL TRIG VERY HIGH: >=500 mg/dL CREA eGFR was calculated using the CKD-EPI 2020 equation. CHOL REF RANGE: BORDERLINE HIGH: 200-239 mg/dL HIGH: >=240 mg/dL Ordering Provider: NATALIE CANTU R Report Released Date/Time: Oct 21, 2023 03:23 PM Reporting Lab: [address] [phone] Performing Lab: [place] [phone] [facility] LIPID PROFILE CHOLESTEROL IN LDL [MASS/VOLUM E] IN SERUM OR PLASMA BY DIRECT ASSAY 142 mg/dL <99 - 99 10/17 H Specimen Type: PLASMA Comment: DLDLREF RANGE: NEAR OR ABOVE OPTIMAL: 100-129 mg/dL BORDERLINE DLDLHIGH: 130-159 mg/dL HIGH: 160-189 mg/dL VERY HIGH: >=190 TRIG REF RANGE: BORDERLINE HIGH: 150-199 mg/dL HIGH: 200-499 mg/dL TRIG VERY HIGH: >=500 mg/dL CREA eGFR was calculated using the CKD-EPI 2020 equation. CHOL REF RANGE: BORDERLINE HIGH: 200-239 mg/dL HIGH: >=240 mg/dL Ordering Provider: NATALIE CANTU Report Released Date/Time: Oct 21, 2023 03:23 PM Reporting Lab: [place] [phone] Performing Lab: [place] [phone] [place] [address] LIPID PROFILE CHOLESTEROL IN HDL [MASS/VOLUM E] IN SERUM OR PLASMA 68 mg/dL 60 10/17 Specimen Type: PLASMA Comment: DLDLREF RANGE: NEAR OR ABOVE OPTIMAL: 100-129 mg/dL BORDERLINE DLDLHIGH: 130-159 mg/dL HIGH: 160-189 mg/dL VERY HIGH: >=190 TRIG REF RANGE: BORDERLINE HIGH: 150-199 mg/dL HIGH: 200-499 mg/dL TRIG VERY HIGH: >=500 mg/dL CREA eGFR was calculated using the CKD-EPI 2020 equation. CHOL REF RANGE: BORDERLINE HIGH: 200-239 mg/dL HIGH: >=240 mg/dL Ordering Provider: NATALIE CANTU Report Released Date/Time: Oct 21, 2023 03:23 PM Reporting Lab: [place] [phone] Performing Lab: [place] [phone] [facility] LIPID PROFILE TRIGLYCERID E [MASS/VOLUM E] IN SERUM OR PLASMA 139 mg/dL <149 - 149 10/17 Specimen Type: PLASMA Comment: DLDLREF RANGE: NEAR OR ABOVE OPTIMAL: 100-129 mg/dL BORDERLINE DLDLHIGH: 130-159 mg/dL HIGH: 160-189 mg/dL VERY HIGH: >=190 TRIG REF RANGE: BORDERLINE HIGH: 150-199 mg/dL HIGH: 200-499 mg/dL TRIG VERY HIGH: >=500 mg/dL CREA eGFR was calculated using the CKD-EPI 2020 equation. CHOL REF RANGE: BORDERLINE HIGH: 200-239 mg/dL HIGH: >=240 mg/dL Ordering Provider: PEPE,AL EX R Report Released Date/Time: Oct 21, 2023 03:23 PM Reporting Lab: [place] [phone] Performing Lab: [place] [phone] MAGNESIUM MAGNESIUM [MASS/VOLUM E] IN SERUM OR PLASMA 2.2 mg/dL 1.6 - 2.6 10/17 Specimen Type: PLASMA Comment: DLDLREF RANGE: NEAR OR ABOVE OPTIMAL: 100-129 mg/dL BORDERLINE DLDLHIGH: 130-159 mg/dL HIGH: 160-189 mg/dL VERY HIGH: >=190 TRIG REF RANGE: BORDERLINE HIGH: 150-199 mg/dL HIGH: 200-499 mg/dL TRIG VERY HIGH: >=500 mg/dL CREA eGFR was calculated using the CKD-EPI 2020 equation. CHOL REF RANGE: BORDERLINE HIGH: 200-239 mg/dL HIGH: >=240 mg/dL Ordering Provider: NATAILE CANTU Report Released Date/Time: Oct 21, 2023 03:23 PM Reporting Lab: [place] [phone] Performing Lab: [place] [phone] CBC LEUKOCYTES [#/VOLUME] IN BLOOD BY AUTOMATED COUNT 6.6 10*3/u L 3.6 - 11.0 10/21 Specimen Type: BLOOD No comment entered. Ordering Provider: NATALIE CANTU Report Released Date/Time: Nov 12, 2022 02:04 PM Reporting Lab: [place] [phone] Performing Lab: [place] [phone] [place] [address] CBC ERYTHROCYTE S [#/VOLUME] IN BLOOD BY AUTOMATED COUNT 4.67 10*6/u L 4.47 - 5.83 10/21 Specimen Type: BLOOD No comment entered. Ordering Provider: NATALIE CANTU Report Released Date/Time: Nov 12, 2022 02:04 PM Reporting Lab: [address] [phone] Performing Lab: [place] [phone] [facility] CBC HEMOGLOBIN [MASS/VOLUM E] IN BLOOD 15.9 g/dL 13.6 - 17.4 10/21 Specimen Type: BLOOD No comment entered. Ordering Provider: NATALIE CANTU Report Released Date/Time: Nov 12, 2022 02:04 PM Reporting Lab: [place] [phone] Performing Lab: [place] [phone] CBC HEMATOCRIT [VOLUME FRACTION] OF BLOOD BY AUTOMATED COUNT 48.0 40.0 - 51.0 10/21 Specimen Type: BLOOD No comment entered. Ordering Provider: NATALIE CANTU Report Released Date/Time: Nov 12, 2022 02:04 PM Reporting Lab: [place] [phone] Performing Lab: [place] [phone] CBC MCV [ENTITIC VOLUME] BY AUTOMATED COUNT 102.8 fL 80.0 - 96.0 10/21 H Specimen Type: BLOOD No comment entered. Ordering Provider: NATALIE CANTU Report Released Date/Time: Nov 12, 2022 02:04 PM Reporting Lab: [place] [phone] Performing Lab: [place] [phone] CBC MCH [ENTITIC MASS] BY AUTOMATED COUNT 34.1 pg 27.0 - 31.0 10/21 H Specimen Type: BLOOD No comment entered. Ordering Provider: NATALIE CANTU Report Released Date/Time: Nov 12, 2022 02:04 PM Reporting Lab: [place] [phone] Performing Lab: [place] [phone] [place] [address] CBC MCHC [MASS/VOLUM E] BY AUTOMATED COUNT 33.2 g/dL 31.5 - 36.5 10/21 Specimen Type: BLOOD No comment entered. Ordering Provider: NATALIE CANTU R Report Released Date/Time: Nov 12, 2022 02:04 PM Reporting Lab: [place] [phone] Performing Lab: [place] [phone] [facility] CBC PLATELETS [#/VOLUME] IN BLOOD BY AUTOMATED COUNT 175 10*3/u L 150 - 400 10/21 Specimen Type: BLOOD No comment entered. Ordering Provider: NATALIE CANTU R Report Released Date/Time: Nov 12, 2022 02:04 PM Reporting Lab: [place] [phone] Performing Lab: [place] [phone] CBC LYMPHOCYTES /100 LEUKOCYTES IN BLOOD BY AUTOMATED COUNT 12.2 21.0 - 51.0 10/21 L Specimen Type: BLOOD No comment entered. Ordering Provider: NATALIE CANTU R Report Released Date/Time: Nov 12, 2022 02:04 PM Reporting Lab: [place] [phone] Performing Lab: [place] [phone] CBC MONOCYTES/1 00 LEUKOCYTES IN BLOOD BY AUTOMATED COUNT 9.1 4.0 - 8.0 10/21 H Specimen Type: BLOOD No comment entered. Ordering Provider: NATALIE CANTU Report Released Date/Time: Nov 12, 2022 02:04 PM Reporting Lab: [place] [phone] Performing Lab: [place] [phone] CBC NUCLEATED ERYTHROCYTE S/100 LEUKOCYTES [RATIO] IN BLOOD BY MANUAL COUNT 0.1 /100{W BCs} 10/21 Specimen Type: BLOOD No comment entered. Ordering Provider: NATALIE CANTU Report Released Date/Time: Nov 12, 2022 02:04 PM Reporting Lab: [place] [phone] Performing Lab: [place] [phone] CBC ERYTHROCYTE DISTRIBUTIO N WIDTH [RATIO] BY AUTOMATED COUNT 15.3 11.2 - 15.8 10/21 Specimen Type: BLOOD No comment entered. Ordering Provider: NATALIE CANTU R Report Released Date/Time: Nov 12, 2022 02:04 PM Reporting Lab: [place] [phone] Performing Lab: [place] [phone] [place] [address] CBC NEUTROPHILS /100 LEUKOCYTES IN BLOOD BY AUTOMATED COUNT 76.6 54.0 - 78.0 10/21 Specimen Type: BLOOD No comment entered. Ordering Provider: NATALIE CANTU Report Released Date/Time: Nov 12, 2022 02:04 PM Reporting Lab: [place] [phone] Performing Lab: [place] [phone] [place] [address] CBC EOSINOPHILS /100 LEUKOCYTES IN BLOOD BY AUTOMATED COUNT 1.5 0.0 - 3.0 10/21 Specimen Type: BLOOD No comment entered. Ordering Provider: NATALIE CANTU Report Released Date/Time: Nov 12, 2022 02:04 PM Reporting Lab: [place] [phone] Performing Lab: [place] [phone] CBC BASOPHILS/1 00 LEUKOCYTES IN BLOOD BY AUTOMATED COUNT 0.6 0.0 - 3.0 10/21 Specimen Type: BLOOD No comment entered. Ordering Provider: NATALIE CANTU Report Released Date/Time: Nov 12, 2022 02:04 PM Reporting Lab: [place] [phone] Performing Lab: [place] [phone] CBC LYMPHOCYTES [#/VOLUME] IN BLOOD BY AUTOMATED COUNT 0.8 10*3/u L 0.8 - 5.0 10/21 Specimen Type: BLOOD No comment entered. Ordering Provider: NATALIE CANTU Report Released Date/Time: Nov 12, 2022 02:04 PM Reporting Lab: [place] [phone] Performing Lab: [place] [phone] [place] [address] CBC NEUTROPHILS [#/VOLUME] IN BLOOD 5.1 10*3/u L 1.9 - 8.6 10/21 Specimen Type: BLOOD No comment entered. Ordering Provider: NATALIE CANTU Report Released Date/Time: Nov 12, 2022 02:04 PM Reporting Lab: [place] [phone] Performing Lab: [place] [phone] CBC BASOPHILS [#/VOLUME] IN BLOOD BY AUTOMATED COUNT 0.0 10*3/u L 0.0 - 0.3 10/21 Specimen Type: BLOOD No comment entered. Ordering Provider: NATALIE CANTU Report Released Date/Time: Nov 12, 2022 02:04 PM Reporting Lab: [place] [phone] Performing Lab: [place] [phone] CBC MONOCYTES [#/VOLUME] IN BLOOD BY AUTOMATED COUNT 0.6 10*3/u L 0.1 - 0.9 10/21 Specimen Type: BLOOD No comment entered. Ordering Provider: NATALIE CANTU Report Released Date/Time: Nov 12, 2022 02:04 PM Reporting Lab: [place] [phone] Performing Lab: [place] [phone] CBC EOSINOPHILS [#/VOLUME] IN BLOOD BY AUTOMATED COUNT 0.1 10*3/u L 0.0 - 0.3 10/21 Specimen Type: BLOOD No comment entered. Ordering Provider: NATALIE CANTU Report Released Date/Time: Nov 12, 2022 02:04 PM Reporting Lab: [place] [phone] Performing Lab: [place] [phone] [place] [address] CBC PLATELET MEAN VOLUME [ENTITIC VOLUME] IN BLOOD BY AUTOMATED COUNT 10.3 fL 7.4 - 11.4 10/21 Specimen Type: BLOOD No comment entered. Ordering Provider: NATALIE CANTU Report Released Date/Time: Nov 12, 2022 02:04 PM Reporting Lab: [place] [phone] Performing Lab: [place] [phone] [facility] COMPREHEN SIVE METABOLIC PANEL ALBUMIN [MASS/VOLUM E] IN SERUM OR PLASMA 4.0 g/dL 3.2 - 4.8 10/21 Specimen Type: PLASMA Comment: TRIGLYCERID E REF RANGE: NORMAL <150 mg/dL BORDERLINE HIGH: 150-199 TRIGLYCERID E mg/dL HIGH: 200-499 mg/dL VERY HIGH: >=500 mg/dL CREATININE eGFR was calculated using the CKD-EPI 2020 equation. Ordering Provider: NATALIE CANTU R Report Released Date/Time: Nov 12, 2022 02:04 PM Reporting Lab: [place] [phone] Performing Lab: [place] [phone] [place] [address] COMPREHEN SIVE METABOLIC PANEL ALKALINE PHOSPHATASE [ENZYMATIC ACTIVITY/VO LUME] IN SERUM OR PLASMA 69 U/L 46 - 116 10/21 Specimen Type: PLASMA Comment: TRIGLYCERID E REF RANGE: NORMAL <150 mg/dL BORDERLINE HIGH: 150-199 TRIGLYCERID E mg/dL HIGH: 200-499 mg/dL VERY HIGH: >=500 mg/dL CREATININE eGFR was calculated using the CKD-EPI 2020 equation. Ordering Provider: NATALIE CANTU Report Released Date/Time: Nov 12, 2022 02:04 PM Reporting Lab: [place] [phone] Performing Lab: [place] [phone] [place] [address] COMPREH SIVE METABOLIC PANEL ALANINE AMINOTRANSF ERASE [ENZYMATIC ACTIVITY/VO LUME] IN SERUM OR PLASMA 15 U/L 10 - 45 10/21 Specimen Type: PLASMA Comment: TRIGLYCERID E REF RANGE: NORMAL <150 mg/dL BORDERLINE HIGH: 150-199 TRIGLYCERID E mg/dL HIGH: 200-499 mg/dL VERY HIGH: >=500 mg/dL CREATININE eGFR was calculated using the CKD-EPI 2020 equation. Ordering Provider: NATALIE CANTU R Report Released Date/Time: Nov 12, 2022 02:04 PM Reporting Lab: [place] [phone] Performing Lab: [address] [phone] [place] [address] COMPREHEN SIVE METABOLIC PANEL ASPARTATE AMINOTRANSF ERASE [ENZYMATIC ACTIVITY/VO LUME] IN SERUM OR PLASMA 21 U/L 0 - 33.9 10/21 Specimen Type: PLASMA Comment: TRIGLYCERID E REF RANGE: NORMAL <150 mg/dL BORDERLINE HIGH: 150-199 TRIGLYCERID E mg/dL HIGH: 200-499 mg/dL VERY HIGH: >=500 mg/dL CREATININE eGFR was calculated using the CKD-EPI 2020 equation. Ordering Provider: NATALIE CANTU Report Released Date/Time: Nov 12, 2022 02:04 PM Reporting Lab: [place] [phone] Performing Lab: [address] COMPREHEN SIVE METABOLIC PANEL UREA NITROGEN [MASS/VOLUM E] IN SERUM OR PLASMA 19 mg/dL 9 - 23 10/21 Specimen Type: PLASMA Comment: TRIGLYCERID E REF RANGE: NORMAL <150 mg/dL BORDERLINE HIGH: 150-199 TRIGLYCERID E mg/dL HIGH: 200-499 mg/dL VERY HIGH: >=500 mg/dL CREATININE eGFR was calculated using the CKD-EPI 2020 equation. Ordering Provider: NATALIE CANTU Report Released Date/Time: Nov 12, 2022 02:04 PM Reporting Lab: [place] [phone] Performing Lab: [address] COMPREHEN SIVE METABOLIC PANEL CALCIUM [MASS/VOLUM E] IN SERUM OR PLASMA 9.7 mg/dL 8.7 - 10.4 10/21 Specimen Type: PLASMA Comment: TRIGLYCERID E REF RANGE: NORMAL <150 mg/dL BORDERLINE HIGH: 150-199 TRIGLYCERID E mg/dL HIGH: 200-499 mg/dL VERY HIGH: >=500 mg/dL CREATININE eGFR was calculated using the CKD-EPI 2020 equation. Ordering Provider: NATALIE CANTU Report Released Date/Time: Nov 12, 2022 02:04 PM Reporting Lab: [place] [phone] Performing Lab: [place] [phone] [facility] COMPREHEN SIVE METABOLIC PANEL CREATININE [MASS/VOLUM E] IN SERUM OR PLASMA 1.6 mg/dL 0.70 - 1.30 10/21 H Specimen Type: PLASMA Comment: TRIGLYCERID E REF RANGE: NORMAL <150 mg/dL BORDERLINE HIGH: 150-199 TRIGLYCERID E mg/dL HIGH: 200-499 mg/dL VERY HIGH: >=500 mg/dL CREATININE eGFR was calculated using the CKD-EPI 2020 equation. Ordering Provider: NATALIE CANTU R Report Released Date/Time: Nov 12, 2022 02:04 PM Reporting Lab: [place] [phone] Performing Lab: [place] [id number] [place] [address] COMPREHEN SIVE METABOLIC PANEL CARBON DIOXIDE, TOTAL [MOLES/VOLU ME] IN SERUM OR PLASMA 25 mmol/L 21 - 32 10/21 Specimen Type: PLASMA Comment: TRIGLYCERID E REF RANGE: NORMAL <150 mg/dL BORDERLINE HIGH: 150-199 TRIGLYCERID E mg/dL HIGH: 200-499 mg/dL VERY HIGH: >=500 mg/dL CREATININE eGFR was calculated using the CKD-EPI 2020 equation. Ordering Provider: NATALIE CANTU Report Released Date/Time: Nov 12, 2022 02:04 PM Reporting Lab: [place] [phone] Performing Lab: [place] [phone] [place] [address] COMPREHEN SIVE METABOLIC PANEL GLUCOSE [MASS/VOLUM E] IN SERUM OR PLASMA 155 mg/dL 74 - 106 10/21 H Specimen Type: PLASMA Comment: TRIGLYCERID E REF RANGE: NORMAL <150 mg/dL BORDERLINE HIGH: 150-199 TRIGLYCERID E mg/dL HIGH: 200-499 mg/dL VERY HIGH: >=500 mg/dL CREATININE eGFR was calculated using the CKD-EPI 2020 equation. Ordering Provider: NATALIE CANTU Report Released Date/Time: Nov 12, 2022 02:04 PM Reporting Lab: [place] [phone] Performing Lab: [place] [phone] [facility] COMPREHEN SIVE METABOLIC PANEL PROTEIN [MASS/VOLUM E] IN SERUM OR PLASMA 6.8 g/dL 6.4 - 8.5 10/21 Specimen Type: PLASMA Comment: TRIGLYCERID E REF RANGE: NORMAL <150 mg/dL BORDERLINE HIGH: 150-199 TRIGLYCERID E mg/dL HIGH: 200-499 mg/dL VERY HIGH: >=500 mg/dL CREATININE eGFR was calculated using the CKD-EPI 2020 equation. Ordering Provider: NATALIE CANTU R Report Released Date/Time: Nov 12, 2022 02:04 PM Reporting Lab: [place] [phone] Performing Lab: [address] COMPREHEN SIVE METABOLIC PANEL SODIUM [MOLES/VOLU ME] IN SERUM OR PLASMA 142 mmol/L 136 - 148 10/21 Specimen Type: PLASMA Comment: TRIGLYCERID E REF RANGE: NORMAL <150 mg/dL BORDERLINE HIGH: 150-199 TRIGLYCERID E mg/dL HIGH: 200-499 mg/dL VERY HIGH: >=500 mg/dL CREATININE eGFR was calculated using the CKD-EPI 2020 equation. Ordering Provider: NATALIE CANTU Report Released Date/Time: Nov 12, 2022 02:04 PM Reporting Lab: [place] [phone] Performing Lab: [address] COMPREHEN SIVE METABOLIC PANEL CHLORIDE [MOLES/VOLU ME] IN SERUM OR PLASMA 104 mmol/L 98 - 107 10/21 Specimen Type: PLASMA Comment: TRIGLYCERID E REF RANGE: NORMAL <150 mg/dL BORDERLINE HIGH: 150-199 TRIGLYCERID E mg/dL HIGH: 200-499 mg/dL VERY HIGH: >=500 mg/dL CREATININE eGFR was calculated using the CKD-EPI 2020 equation. Ordering Provider: NATALIE CANTU Report Released Date/Time: Nov 12, 2022 02:04 PM Reporting Lab: [place] [phone] Performing Lab: [place] [phone] COMPREHEN SIVE METABOLIC PANEL BILIRUBIN.T OTAL [MASS/VOLUM E] IN SERUM OR PLASMA 0.4 mg/dL 0.3 - 1.2 10/21 Specimen Type: PLASMA Comment: TRIGLYCERID E REF RANGE: NORMAL <150 mg/dL BORDERLINE HIGH: 150-199 TRIGLYCERID E mg/dL HIGH: 200-499 mg/dL VERY HIGH: >=500 mg/dL CREATININE eGFR was calculated using the CKD-EPI 2020 equation. Ordering Provider: NATALIE CANTU R Report Released Date/Time: Nov 12, 2022 02:04 PM Reporting Lab: [place] [phone] Performing Lab: [place] [id number] [place] [address] COMPREHEN SIVE METABOLIC PANEL POTASSIUM [MOLES/VOLU ME] IN SERUM OR PLASMA 4.2 mmol/L 3.5 - 5.1 10/21 Specimen Type: PLASMA Comment: TRIGLYCERID E REF RANGE: NORMAL <150 mg/dL BORDERLINE HIGH: 150-199 TRIGLYCERID E mg/dL HIGH: 200-499 mg/dL VERY HIGH: >=500 mg/dL CREATININE eGFR was calculated using the CKD-EPI 2020 equation. Ordering Provider: NATALIE CANTU Report Released Date/Time: Nov 12, 2022 02:04 PM Reporting Lab: [place] [phone] Performing Lab: [place] [phone] COMPREHEN SIVE METABOLIC PANEL ANION GAP IN SERUM OR PLASMA 17.2 mmol/L 10 - 20 10/21 Specimen Type: PLASMA Comment: TRIGLYCERID E REF RANGE: NORMAL <150 mg/dL BORDERLINE HIGH: 150-199 TRIGLYCERID E mg/dL HIGH: 200-499 mg/dL VERY HIGH: >=500 mg/dL CREATININE eGFR was calculated using the CKD-EPI 2020 equation. Ordering Provider: NATALIE CANTU Report Released Date/Time: Nov 12, 2022 02:04 PM Reporting Lab: [place] [phone] Performing Lab: [place] [phone] COMPREHEN SIVE METABOLIC PANEL GLOMERULAR FILTRATION RATE/1.73 SQ M.PREDICTED [VOLUME RATE/AREA] IN SERUM, PLASMA OR BLOOD BY CREATININE- BASED FORMULA (CKD-EPI 2020) 42 mL/min 10/21 Specimen Type: PLASMA Comment: TRIGLYCERID E REF RANGE: NORMAL <150 mg/dL BORDERLINE HIGH: 150-199 TRIGLYCERID E mg/dL HIGH: 200-499 mg/dL VERY HIGH: >=500 mg/dL CREATININE eGFR was calculated using the CKD-EPI 2020 equation. Ordering Provider: NATALIE CANTU Report Released Date/Time: Nov 12, 2022 02:04 PM Reporting Lab: [address] [id number] Performing Lab: [place] [phone] [facility] HEMOGLOBI N A1C HEMOGLOBIN A1C/HEMOGLO BIN.TOTAL IN BLOOD 6.8 3.6 - 5.7 10/21 H Specimen Type: BLOOD Comment: Values obtained from A1C measurement s can vary. For typical A1C assays, a reported value of 7.0 could actually be between 6.72 and 7.28 if measured by a reference method. A reported value of 9.0 could actually be between 8.73 and 9.27. Ref: http://[email or web address] [email or web address]/[place] Pdata.asp Ordering Provider: NATALIE CANTU Report Released Date/Time: Nov 12, 2022 02:04 PM Reporting Lab: [place] [phone] Performing Lab: [place] [phone] [facility] LIPID PROFILE CHOLESTEROL [MASS/VOLUM E] IN SERUM OR PLASMA 210 mg/dL 135 - 200 10/21 H Specimen Type: PLASMA Comment: TRIGLYCERID E REF RANGE: NORMAL <150 mg/dL BORDERLINE HIGH: 150-199 TRIGLYCERID E mg/dL HIGH: 200-499 mg/dL VERY HIGH: >=500 mg/dL CREATININE eGFR was calculated using the CKD-EPI 2020 equation. Ordering Provider: NATALIE CANTU Report Released Date/Time: Nov 12, 2022 02:04 PM Reporting Lab: [address] [phone] Performing Lab: [place] [phone] [facility] LIPID PROFILE CHOLESTEROL IN LDL [MASS/VOLUM E] IN SERUM OR PLASMA BY DIRECT ASSAY 124.0 mg/dL 0 - 110 10/21 H Specimen Type: PLASMA Comment: TRIGLYCERID E REF RANGE: NORMAL <150 mg/dL BORDERLINE HIGH: 150-199 TRIGLYCERID E mg/dL HIGH: 200-499 mg/dL VERY HIGH: >=500 mg/dL CREATININE eGFR was calculated using the CKD-EPI 2020 equation. Ordering Provider: NATALIE CANTU R Report Released Date/Time: Nov 12, 2022 02:04 PM Reporting Lab: [place] [phone] Performing Lab: [place] [phone] LIPID PROFILE CHOLESTEROL IN HDL [MASS/VOLUM E] IN SERUM OR PLASMA 64 mg/dL 40 - 60 10/21 H Specimen Type: PLASMA Comment: TRIGLYCERID E REF RANGE: NORMAL <150 mg/dL BORDERLINE HIGH: 150-199 TRIGLYCERID E mg/dL HIGH: 200-499 mg/dL VERY HIGH: >=500 mg/dL CREATININE eGFR was calculated using the CKD-EPI 2020 equation. Ordering Provider: NATALIE CANTU Report Released Date/Time: Nov 12, 2022 02:04 PM Reporting Lab: [place] [phone] Performing Lab: [place] [phone] LIPID PROFILE TRIGLYCERID E [MASS/VOLUM E] IN SERUM OR PLASMA 144 mg/dL 0 - 149 10/21 Specimen Type: PLASMA Comment: TRIGLYCERID E REF RANGE: NORMAL <150 mg/dL BORDERLINE HIGH: 150-199 TRIGLYCERID E mg/dL HIGH: 200-499 mg/dL VERY HIGH: >=500 mg/dL CREATININE eGFR was calculated using the CKD-EPI 2020 equation. Ordering Provider: NATALIE CANTU Report Released Date/Time: Nov 12, 2022 02:04 PM Reporting Lab: [place] [id number] Performing Lab: [place] [id number] MAGNESIUM MAGNESIUM [MASS/VOLUM E] IN SERUM OR PLASMA 2.2 mg/dL 1.8 - 2.4 10/21 Specimen Type: PLASMA Comment: TRIGLYCERID E REF RANGE: NORMAL <150 mg/dL BORDERLINE HIGH: 150-199 TRIGLYCERID E mg/dL HIGH: 200-499 mg/dL VERY HIGH: >=500 mg/dL Ordering Provider: NATALIE CANTU Report Released Date/Time: Nov 12, 2022 02:04 PM Reporting Lab: [facility] [facility] [id number] [id number] Performing Lab: [address] [address] [facility] Vital Signs Combined list of inpatient and outpatient Vital Signs from Department of [facility] and [facility], ranging from 12 months to all on record, depending upon the facility. Vital Sign Value Date Comments Source SYSTOLIC BLOOD PRESSURE 131 12/07/2024 10:54:29 [facility] DIASTOLIC BLOOD PRESSURE 69 12/07/2024 10:54:29 [facility] PULSE OXIMETRY 94 12/07/2024 10:54:29 [facility] WEIGHT 187.9 12/07/2024 10:54:29 [facility] BMI 27 kg/m2 12/07/2024 10:54:29 [facility] PAIN 0 12/07/2024 10:54:29 [facility] TEMPERATURE 97.9 12/07/2024 10:54:29 [facility] PULSE 76 12/07/2024 10:54:29 [facility] RESPIRATION 16 12/07/2024 10:54:29 [facility] Encounters Combined list of: 1) Encounters from 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 Location Location Details Encounter Type Encounter Number Reason For Visit Attending Provider ADM Date DC Date Status Disposition Source [facility] Outpatient Encounter [id number] 04/05 [facility] Outpatient Encounter [id number] 08/05 [facility] Outpatient Encounter [id number] 08/11 [facility] Outpatient Encounter [id number] 08/15 [facility] Outpatient Encounter [id number] 09/09 [facility] Outpatient Encounter [id number] 11/18 [facility] Outpatient Encounter [id number] 11/20 [facility] FEE [id number] Diagnos is: ICD-10- CM E11.9 Type 2 diabete s mellitu s without complic ations CHRISTIE ZAVALETA 12/07 MANISH Tate [facility] OFFICE O/P EST MOD 30 MIN [id number] Diagnos is: ICD-10- CM E11.9 Type 2 diabete s mellitu s without complic ations JAMIE ALEXIS 12/07 [facility] Outpatient Encounter [id number] 12/08 [facility] Outpatient Encounter [id number] 03/16 [facility] NQHP OL DIG ASSMT&MGMT 5-10 [id number] Diagnos is: ICD-10- CM N18.32 Chronic kidney disease , stage 3b GINI NUNEZ 03/16 [facility] Outpatient Encounter [id number] 05/06 [facility] Social History Combined list of available smoking, tobacco, and other social history from Department of Defense and Veterans Affairs facilities. Social History Type Response Date Comment Sourc e Tobacco smoking status NHIS VA-TOBACCO USE FORMER CIGARETTES 12/07/2024 [facility] History of tobacco use VA-TOBACCO NEVER USED OTHER TYPE 12/07/2024 [facility] History of tobacco use VA-TOBACCO FORMER USER 10/21/2023 [facility] History of tobacco use VA-TOBACCO FORMER USER 11/12/2022 [facility] History of tobacco use VA-TOBACCO FORMER USER 10/31/2021 [facility] History of tobacco use VA-TOBACCO FORMER USER 11/06/2020 [facility] History of tobacco use VA-TOBACCO FORMER USER 11/04/2018 [facility] History of tobacco use VA-TOBACCO NEVER USED 11/04/2018 [facility] History of tobacco use QUIT TOBACCO >7 YEARS AGO 7 [facility] Plan of Care List of future care activities from Department of Veterans Affairs facilities. Additional future care activities may be listed in the Assessment and Plan section. Date/Time Care Activity Care Activity Detail Facili ty 06/08/2025 AMBULATORY - NONE AMBULATORY - NONE [facility]
--- OUTSIDE RECORDS SUMMARY | 2025-05-10 02:37 | XMS_ITS | Encounter Summary ---
Author Organization [facility] Address [address] [place] [address] Care Team Providers Care Primer Press Operator Name Role Phone Pj Sung MD Primary Care Provider [phone] Pj Sung MD Unavailable Reason for Referral * Consultation (Routine) - Pending Review Specialty Diagnoses / Procedures Referred By Contac t Referred To Contact Pulmonary Disease / Pulmonology Diagnoses Pleural effusion Procedures [place] OFFICE/OUTPATIENT [facility] 60 MINUTES Nikolas Gonzalez MD [address] [place] [address] Phone: tel: fax: [facility] Pulmonary [address] [place] [phone] Phone: tel: fax: Referral ID Status Reason Start Date Expiration Date Visits Requested Visits Authorized [id number] Pending Review Specialty Services Required 05/17/2025 05/17/2026 1 1 * Cardiac Stress Testing (Routine) - Pending Review Specialty Diagnoses / Procedures Referred By Contac t Referred To Contact Cardiology Diagnoses LBBB (left bundle branch block) Palpitations Procedures Cardiac event monitor Nikolas Gonzalez MD [address] [place] [address] Phone: tel: fax: Referral ID Status Reason Start Date Expiration Date V isits Requested Visits Authorized [id number] Pending Review 05/17/2025 05/17/2026 1 1 * (Routine) - Pending Review Specialty Diagnoses / Procedures Referred By Contac t Referred To Contact Procedures ECG 12 lead Mike Cisneros MD [address] [facility] [address] [place] [address] Phone: tel: fax: Referral ID Status Reason Start Date Expiration Date V isits Requested Visits Authorized [id number] Pending Review 05/16/2025 05/16/2026 1 1 * (Emergency) - Pending Review Specialty Diagnoses / Procedures Referred By Contac t Referred To Contact Procedures ECG 12 lead Shamar Nolan MD [address] [facility] 2 [facility] [place] [address] Phone: tel: fax: Referral ID Status Reason Start Date Expiration Date V isits Requested Visits Authorized [id number] Pending Review 05/16/2025 05/16/2026 1 1 * (Routine) - Pending Review Specialty Diagnoses / Procedures Referred By Contac t Referred To Contact Procedures ECG 12 lead Julio Cesar Medina MD [address] [place] [address] Phone: tel: fax: Referral ID Status Reason Start Date Expiration Date V isits Requested Visits Authorized [id number] Pending Review 05/15/2025 05/15/2026 1 1 * Consultation (Routine) - Pending Review Specialty Diagnoses / Procedures Referred By Contact Referred To Contact Cardiopulmonary Rehab / CardioPulmonary Rehab Diagnoses S/P TAVR (transcatheter aortic valve replacement) Procedures [place] OFFICE/OUTPATIENT [facility] MDM 60 MINUTES Promise Pelaez CNP [address] [place] [address] Phone: tel: fax: [facility] [address] [place] [address] [place] [address] Phone: tel:[phone] fax:[phone] Referral ID Status Reason Start Date Expiration Date Visits Requested Visits Authorized [id number] Pending Review Specialty Services Required 05/15/2025 05/15/2026 1 1 * (Routine) - Pending Review Specialty Diagnoses / Procedures Referred By Manpreet beckett Referred To Contact Procedures ECG 12 lead Promise Pelaez CNP [address] [place] [address] Phone: tel: fax: Referral ID Status Reason Start Date Expiration Date V isits Requested Visits Authorized [id number] Pending Review 05/14/2025 05/14/2026 1 1 Reason for Visit * Auth/Cert (Routine) Specialty Diagnoses / Procedures Referred By Manpreet beckett Referred To Contact Diagnoses Chest pain Chest Pain Procedures no coded services Estuardo Reed MD [address] [place] [address] Phone: tel: fax: [facility] [address] [place] [address] Phone: tel: fax: Referral ID Status Reason Start Date Expiration Date Visits Re quested Visits Authorized [id number] 1 1 Encounter Details Date Type Department Care Team (Late st Contact Info) Description 05/10/2025 2:37 AM EDT - 05/17/2025 8:26 PM EDT Hospital Encounter [facility] [address] [place] [address] Gabriela Vargas MD [address] [facility] [place], [place] [id number] Julio Cesar Medina MD [address] [facility] [place] [address] Mike Cisneros MD [address] [place] [address] Nikolas Gonzalez MD [address] [facility] [place] [address] Aortic stenosis, severe (Primary Dx); Chest pain; Angina pectoris, unstable (CMS/HCC); Acute diastolic congestive heart failure (CMS/HCC); Chest pain due to myocardial ischemia, unspecified ischemic chest pain type; Nonrheumatic aortic valve stenosis; S/P TAVR (transcatheter aortic valve replacement); LBBB (left bundle branch block); Cardiac arrhythmia, unspecified cardiac arrhythmia type; Palpitations; Primary hypertension; Pleural effusion Discharge Disposition: Longterm Facility (03) Social History Tobacco Use Types Packs/Day Years Used Date Smoking Tobacco: Former Cigarettes Smokeless Tobacco: Never Tobacco Cessation:Counseling Given: Not Answered [facility] Utilities Answer Date Recorded In the past 12 months has e [employer], oil, or water [employer] threatened to shut off services in your home? No 05/10/2025 Humiliation, Afraid, Rape, and Kick questionnair e Answer Date Recorded Within the last year, have y ou been afraid of your partner or ex-partner? No 05/10/2025 Emotionally Abused Not on file 05/10/2025 Physically Abused Not on file 05/10/2025 Sexually Abused Not on file 05/10/2025 Overall Financial Resource Strain (CARDIA) Answe r Date Recorded How hard is it for you to pa y for the very basics like food, housing, medical care, and heating? Not hard at all 05/10/2025 PHQ-2 Answer Date Recorded Patient Health Questionnaire-2 Score 0 01/03/2025 Transportation Answer Date Recorded In the past 12 months, has l ack of transportation kept you from medical appointments or from getting medications? No 05/10/2025 Lack of Transportation (Non-Medical) Not on file 05/10/2025 Housing Stability Vital Sign Answer Rod e Recorded In the last 12 months, was t here a time when you were not able to pay the mortgage or rent on time? No 05/10/2025 Number of Times Moved in the Last Year Not on fi le 05/10/2025 At any time in the past 12 m [facility], were you homeless or living in a [facility] (including now)? No 05/10/2025 Hunger Vital Sign Answer Date Recorded Within the past 12 months, y ou worried that your food would run out before you got the money to buy more. Never true 05/10/20 25 Ran Out of Food in the Last Year Not on file 05/10/2025 Sex and Gender Information Value Date Recorded Sex Assigned at Male 06/10/2023 8:02 PM EDT Legal Sex Male 10:17 PM EDT Gender Identity Male 06/10/2023 8:02 PM EDT Sexual Orientation Heterosexual or Straight 05/16 8:02 PM EDT documented as of this encounter Last Filed Vital Signs Vital Sign Reading Time Taken Comments Blood Pressure 131/65 05/17/2025 7:25 PM EDT Pulse 76 05/17/2025 7:25 PM EDT Temperature 36.7 C (98.1 F) 05/17/2025 7:25 PM EDT Respiratory Rate 18 05/17/2025 7:25 PM EDT Oxygen Saturation 97% 05/17/2025 7:25 PM EDT Inhaled Oxygen Concentration - - Weight 72.9 kg (160 lb 12.8 oz) 05/17/2025 5:26 AM EDT Height 182.8 cm (5' 11.97 ) 05/10/2025 3:00 AM E DT Body Mass Index 21.83 05/10/2025 3:00 AM EDT documented in this encounter Functional Status * Suicidal Ideation Question Answer Date of Assessment Author 1. Wish to be (Lifetime) No 05/10/2025 2:56 AM EDT Karen Paula, RN 2. Non-Specific Active Suici mohsen Thoughts (Lifetime) No 05/10/2025 2:56 AM EDT Karen Paula, RN documented as of this encounter Discharge Summaries * Nitin Raza MD - 05/17/2025 3:40 PM EDT Images from the original note were not included. Primary Pulmonary Service Discharge Summary Discharge Summary Final Discharge Diagnosis: Acute on chronic HFpEF 2/2 aortic stenosis s/p TAVR 05/15 HFpEF NYHA II Leukocytosis Right sided pleural effusion on CXR 05/16 Paroxysmal A-fib CHADVASC 7 Primary hypertension with hypertensive urgency on admission Type II Diabetes with long-term current use of insulin New LBBB Admission Diagnosis: Chest pain [R07.9] S/P TAVR (transcatheter aortic valve replacement) [Z95.2] Aortic stenosis, severe [I35.0] Hospital course: Nadir Beth is an 85 y.o. male with a PMH of HFpEF, paroxysmal A-fib on Xarelto, CVA 4 months ago, T2DM, hypertension, renal artery stenosis left renal stent, CKD, and hyperlipidemia who was admitted as a direct transfer from [facility] on 05/10/2025 for acute on chronic heart failure. 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 He presented to the ED on the advice of his physician following an increase in lower extremity edema with associated labs showing a BNP 6200. In the [facility] ED he was found to have pulmonary vascular congestion with right sided pleural effusion on chest x-ray, and found to be hypertensive at 190/68, and EKG showed A-fib, he was initially managed medically with lasix and antihypertensives prior to transfer. Patient follows up with Dr. Bland who had scheduled right heart cath on 05/10/2025. At [facility] echo was performed which was unable to obtain an EF due to heart rhythm but was preserved, there was associated severe RA and LA enlargement, moderate to severe , AR, mild MR and TR. Right heart cath revealed moderate coronary artery disease with a borderline significant mid LAD lesion and was recommended TAVR which was performed on 05/15/2025 and transferred to the ICU for 24 hour observation. Repeat echo showed EF of 70% mean PG 3 mmHg, no valvular or paravalvular insufficiency. Repeat echo on day of discharge revealed small to moderate pericardial effusion. Pericardial effusion appears unchanged from 05/16/25. Cardiology was okay with discharge and follow up outpatient with an event monitor given new LBBB. Follow- up scheduled 05/28/25, 06/18/[address] Cisneros. Of note, CXR on 05/16 revealed new right sided pleural effusion. Patient received zosyn for 2 days and will be discharged on augmentin for 3 more days for a total of 5 days of treatment for presumed pneumonia as patient has leukocytosis. He is afebrile and on room air. Discussed with family, and plan is to continue diuresis with outpatient follow up and CXR in one week. Will need follow up with pulm outpatient to determine the need for diagnostic thoracentesis. Of note, he came in with hypertensive urgency and was managed by cardiology using clonidine 0.2 mg 3 times daily, hydralazine 25 mg 3 times daily, labetalol 300 mg 3 times daily, and spironolactone 25 mg daily. He will need outpatient follow up with PCP for better BP monitoring. Surgical, Invasive or Diagnostic Procedures Done During Admission: TAVR Consultations During Admission: Cardiology and cardiothoracic surgery Deamesha Sung MD, Ronald is advised to follow up with you within 1-2 weeks. Items to follow up in ambulatory setting: CHEST X-RAY in one week Follow-up with: Cardiology and Pulmonary Scheduled appointments: Future Appointments Date Time Provider Department Center 05/28/2025 2:20 PM Ruy Amanda CNP [facility] 06/15/2025 10:30 AM [facility] CV ECHO ROOM 2 [facility] 06/18/2025 11:30 AM Mike Cisneros MD [facility] Your medication list START taking these medications Instructions Last Dose Given Next Dose Due amoxicillin-pot clavulanate 875-125 mg tablet Commonly known as: Augmentin Take 1 tablet by mouth two times daily for 3 days. dapagliflozin propanediol 10 mg Commonly known as: Farxiga Start taking on: May 18, 2025 Replaces: empagliflozin 25 mg Take 1 tablet (10 mg) by mouth in the morning. CONTINUE taking these medications Instructions Last Dose Given Next Dose Due acetaminophen 500 mg tablet Commonly known as: Tylenol aspirin 81 mg EC tablet b complex 0.4 mg tablet bacitracin 500 unit/gram ointment calcium polycarbophil 625 mg tablet Commonly known as: Fibercon cholecalciferol 25 MCG (1000 UT) capsule Commonly known as: Vitamin D-3 cloNIDine 0.2 mg tablet Commonly known as: Catapres dicyclomine 10 mg capsule Commonly known as: Bentyl ezetimibe 10 mg tablet Commonly known as: Zetia fluticasone propion-salmeteroL 113 mcg-14 mcg/actuation aero powdr breath act w/sensor furosemide 40 mg tablet Commonly known as: Lasix glimepiride 4 mg tablet Commonly known as: Amaryl insulin lispro 100 unit/mL injection pen Commonly known as: HumaLOG labetalol 300 mg tablet Commonly known as: Normodyne linaGLIPtin 5 mg tablet Commonly known as: Tradjenta loratadine 10 mg tablet Commonly known as: Claritin magnesium oxide 500 mg magnesium tablet metFORMIN 500 mg tablet Commonly known as: Glucophage omeprazole [address] capsule Commonly known as: PriLOSEC pioglitazone 45 mg tablet Commonly known as: Actos polyethylene glycol oral powder Commonly known as: Glycolax potassium chloride CR 10 mEq ER tablet Commonly known as: Klor-Con M10 prednisoLONE acetate 1 % ophthalmic suspension Commonly known as: Pred-Forte primidone 50 mg tablet Commonly known as: Mysoline psyllium 0.52 gram capsule Commonly known as: Metamucil spironolactone 25 mg tablet Commonly known as: Aldactone tamsulosin 0.4 mg 24 hr capsule Commonly known as: Flomax tiotropium 1.25 mcg/actuation inhaler Commonly known as: Spiriva Respimat Xarelto 15 mg tablet Generic drug: rivaroxaban STOP taking these medications empagliflozin 25 mg Commonly known as: Jardiance Replaced by: dapagliflozin propanediol 10 mg Where to Get Your Medications Information about where to get these medications is not yet available Ask your nurse or doctor about these medications amoxicillin-pot clavulanate 875-125 mg tablet dapagliflozin propanediol 10 mg Nadir is allergic to aminolevulinic acid hcl, iodinated contrast media, nitroglycerin, and simvastatin. Disposition: Longterm Facility (03) Discharge Condition: Stable Code Status: Full Code Diagnostic Results Hematology: Results from last 7 days Lab Units 05/17/25 0859 05/16/25 0310 WBC AUTO 10*3/uL 12.14* 14.93* HEMOGLOBIN g/dL 10.4* 10.0* HEMATOCRIT % 34.2* 33.1* MCV fL 84.2 84.0 PLATELETS AUTO 10*3/uL 256 306 Chemistry: Results from last 7 days Lab Units 05/17/25 0859 05/16/25 0310 05/15/25 0339 SODIUM mmol/L 140 140 137 POTASSIUM mmol/L 3.9 4.2 4.5 CHLORIDE mmol/L 104 103 99 CO2 mmol/L 25 22 27 BUN mg/dL 38* 41* 34* CREATININE mg/dL 1.73* 1.71* 1.61* GLUCOSE mg/dL 239* 222* 255* CALCIUM mg/dL 8.6 8.6 8.9 Results from last 7 days Lab Units 05/17/25 0859 AST U/L 13 ALT U/L <3* ALK PHOS U/L 68 BILIRUBIN TOTAL mg/dL 0.5 Test Results Pending At Discharge: Pending Labs Order Current Status Blood culture, peripheral #1 Preliminary result Blood culture, peripheral #2 Preliminary result Diet at the time of discharge: regular diet Nutrition Screen Activity: Patient currently has no discharge activity orders Objective Blood pressure 143/62, pulse 74, temperature 36.5 ??C (97.7 ??F), temperature source Temporal, resp. rate 15, height 1.828 m (5' 11.97 ), weight 72.9 kg (160 lb 12.8 oz), SpO2 99%. Physical Exam Constitutional: General: He is not in acute distress. Appearance: He is not ill-appearing. HENT: Head: Normocephalic. Eyes: Pupils: Pupils are equal, round, and reactive to light. Cardiovascular: Rate and Rhythm: Normal rate and regular rhythm. Pulses: Normal pulses. Heart sounds: Normal heart sounds. Pulmonary: Effort: Pulmonary effort is normal. No respiratory distress. Abdominal: General: There is no distension. Palpations: Abdomen is soft. Musculoskeletal: Cervical back: Neck supple. Right lower leg: Edema present. Left lower leg: Edema present. Skin: General: Skin is warm. Capillary Refill: Capillary refill takes less than 2 seconds. Neurological: General: No focal deficit present. Mental Status: He is alert. Mental status is at baseline. Psychiatric: Mood and Affect: Mood normal. Signed Nitin Raza MD Primary Pulmonary Medicine Service 05/17/2025 3:52 PM CC: MD Pineda Cosigned by Nikolas Gonzalez MD at 05/23/2025 8:30 AM EDT Associated attestation - Nikolas Gonzalez MD - 05/23/2025 8:30 AM EDT I agree with the assessment and plan of Dr. Raza documented in this encounter Discharge Instructions * Discharge Instructions* Nitin Raza MD - 05/17/2025 3:42 PM EDT You will need to follow up with your PCP, cardiology, pulmonology and need to repeat CXR in one week Continue taking your medications as prescribed * Discharge Instr - AVS First Page* Radha Cool RN - 05/17/2025 9:52 AM EDT Any questions or concerns * Discharge Instr - Activity* Radha Cool RN - 05/14/2025 9:11 AM EDT Activity as tolerated Fall risk precautions PT/OT eval and Treat * Discharge Instr - Diet* Radha Cool RN - 05/14/2025 9:12 AM EDT Dietary consult: Heart Healthy (2 grams of sodium per day/low fat/low cholesterol) Diabetic Male Diet (60 grams of carbohydrates per meal) Regular texture, thin liquids Accuchecks before meals and before bedtime * Discharge Instr - Other Orders* Radha Cool RN - 05/14/2025 9:12 AM EDT CBC, BMP in 3-5 days Full code Follow Post cath instructions: (radial)left wrist. 05/08/[address] Nolan No lifting greater than 5 pounds for 72 hours after procedure You may resume your normal activities gradually over the next week, or as instructed Keep arm elevated on pillow overnight with brachial and radial cath sites. Keep puncture site dry for 24 hours; may shower 24 hours after procedure Remove band aid dressing from site the morning after the procedure Do not sit in bath water, Jacuzzi or pool/pond/hameed for one week Notify physician if you develop: IF BLEEDING APPLY FIRM PRESSURE TO THE SITE If bleeding heavily report to the emergency room Severe pain to cath site Hard, painful, swelling larger than a quarter at puncture site Numbness and or tingling Fever greater than 101 degrees Redness, warmth, drainage at puncture site Cardiac Event Monitor recommended per cardiology: 30 day cardiac event monitor, please wear as instructed per your cardiology team Please call prior to leaving the hospital PLEASE wear as instructed and follow up with cardiology at [facility] documented in this encounter Medications at Time of Discharge aspirin 81 mg EC tablet Take 81 mg by mouth in the morning. b complex vitamins capsule Take 1 capsule by mouth in the morning. calcium polycarbophil (Fibercon) 625 mg tablet Take 1,250 mg by mouth in the morning. cholecalciferol (Vitamin D-3) 25 MCG (1000 UT) capsule Take 25 mcg by mouth in the morning. cholecalciferol (Vitamin D3) 25 MCG (1000 units) tablet Take 2,000 Units by mouth in the morning. cloNIDine (Catapres) 0.2 mg tablet Take 0.2 mg by mouth three times daily. dapagliflozin propanediol (Farxiga) 10 mgIndications:Acute diastolic congestive heart failure (CMS/HCC) Take 1 tablet (10 mg) by mouth in the morning. 05/18/2025 06/17/20 25 ezetimibe (Zetia) 10 mg tablet Take 10 mg by mouth in the morning. fluticasone propion-salmeteroL 113 mcg-14 mcg/actuation aero powdr breath act w/sensor Inhale 1 Inhalation two times daily. furosemide (Lasix) 40 mg tabletIndications:P ulmonary hypertension (CMS/HCC),Chronic diastolic congestive heart failure (CMS/HCC) Take 2 tablets (80 mg) by mouth two times daily. 360 tablet 3 12/14/2024 12/14/19 26 furosemide (Lasix) 40 mg tablet Take 40 mg by mouth in the morning. glimepiride (Amaryl) 4 mg tablet Take 1 tablet by mouth in the morning and at bedtime. glimepiride (Amaryl) 4 mg tablet Take 8 mg by mouth before breakfast. insulin lispro (HumaLOG) 100 unit/mL injection pen Inject 2-10 Units under the skin with breakfast, with lunch, and with evening meal. insulin lispro (HumaLOG) 100 unit/mL injection Inject 10 Units under the skin with breakfast, with lunch, and with evening meal. labetalol (Normodyne) 300 mg tablet Take 300 mg by mouth three times daily. labetalol (Normodyne) 300 mg tablet Take 300 mg by mouth three times daily. linaGLIPtin (Tradjenta) 5 mg tablet Take 5 mg by mouth in the morning. loratadine (Claritin Reditabs) 10 mg disintegrating tablet Take 10 mg by mouth in the morning. loratadine (Claritin) 10 mg tablet Take 10 mg by mouth in the morning. magnesium oxide 500 mg magnesium tablet Take 500 mg by mouth three times daily. metFORMIN (Glucophage) 500 mg tablet Take 500 mg by mouth three times daily. omeprazole (PriLOSEC) [address] capsule Take 20 mg by mouth before breakfast. Do not crush or chew. pioglitazone (Actos) 45 mg tablet Take 45 mg by mouth in the morning. polyethylene glycol (Glycolax) oral powder Take 17 g by mouth if needed each day (constipation). potassium chloride CR (Klor-Con M20) 20 mEq ER tablet Take 1 tablet every day by oral route for 90 days. prednisoLONE acetate (Pred-Forte) 1 % ophthalmic suspension Administer 1 drop into the right eye two times daily. primidone (Mysoline) 50 mg tablet Take 50 mg by mouth two times daily. psyllium (Metamucil) 0.52 gram capsule Take 1.52 g by mouth in the morning. rivaroxaban (Xarelto) 15 mg tablet Take 15 mg by mouth daily with evening meal. Take with food. tiotropium (Spiriva Respimat) 1.25 mcg/actuation inhaler Inhale 2 puffs in the morning. acetaminophen (Tylenol) 500 mg tablet Take 1,000 mg by mouth every 6 (six) hours if needed for mild pain (1-3 pain score). acyclovir (Zovirax) 400 mg tablet Take 1 tablet twice a day by oral route for 30 days. Align 4 mg capsule TAKE 1 CAPSULE BY MOUTH DAILY AFTER COMPLETING THE ANTIBIOTICS COURSE 06/10/2023 ALPRAZolam (Xanax) 0.25 mg tablet Take 1 tablet by mouth Twice daily at 6am and 6pm. 08/15/2024 aspirin 81 mg EC tablet Take 1 tablet every day by oral route. b complex 0.4 mg tablet Take 1 tablet by mouth in the morning. bacitracin 500 unit/gram ointment Apply 1 Application topically two times daily. cholecalciferol (Vitamin D3) 25 MCG (1000 UT) capsuleIndications: Vitamin D deficiency Take 5 capsules (125 mcg) by mouth in the morning. 150 capsule 11 01/03/2025 01/03/20 26 cloNIDine (Catapres) 0.1 mg tablet Take 2 tablets by mouth three times daily. dicyclomine (Bentyl) 10 mg capsule Take 20 mg by mouth. dicyclomine (Bentyl) 10 mg capsule Take 10 mg by mouth two times daily. empagliflozin (Jardiance) 25 mg Take 25 mg by mouth in the morning. ezetimibe (Zetia) 10 mg tablet Take 1 tablet every day by oral route. ferrous sulfate 325 (65 Fe) MG tablet Take 65 mg by mouth with breakfast. linaGLIPtin (Tradjenta) 5 mg tablet Take 5 mg by mouth in the morning. magnesium oxide (Mag-Ox) 250 mg magnesium tablet Take 250 mg by mouth. 11/06/2020 metFORMIN (Glucophage) 500 mg tablet Take 500 mg by mouth with breakfast. metoclopramide (Reglan) 5 mg tablet Take 5 mg by mouth once daily as directed. bedtime omeprazole (PriLOSEC) [address] capsule Take 40 mg by mouth before breakfast. Do not crush or chew. pioglitazone (Actos) 45 mg tablet Take 1 tablet by mouth in the morning. potassium chloride CR (Klor-Con M10) 10 mEq ER tablet Take 20 mEq by mouth in the morning. Do not crush or chew. prednisoLONE acetate (Pred-Forte) 1 % ophthalmic suspension INSTILL 1 DROP INTO RIGHT EYE 3 TIMES A DAY DIRECTED 12/12/2024 primidone (Mysoline) 50 mg tablet Take 2 tablets by mouth in the morning and at bedtime. rivaroxaban (Xarelto) 15 mg tablet Take 15 mg by mouth daily with evening meal. Take with food. SITagliptin phosphate (Januvia) 50 mg tablet Take 100 mg by mouth in the morning. spironolactone (Aldactone) 25 mg tablet Take 25 mg by mouth in the morning. spironolactone (Aldactone) 50 mg tablet Take 50 mg by mouth in the morning. 04/06/2025 tamsulosin (Flomax) 0.4 mg 24 hr capsule Take 1 capsule every day by oral route for 90 days. tamsulosin (Flomax) 0.4 mg 24 hr capsule Take 0.4 mg by mouth in the morning. tiotropium (Spiriva Respimat) 1.25 mcg/actuation inhaler Inhale 2 puffs every day by inhalation route. amoxicillin-pot clavulanate (Augmentin) 875-125 mg tabletIndications:P leural effusion Take 1 tablet by mouth two times daily for 3 days. 05/17/2025 05/20/20 documented as of this encounter Progress Notes * Chris River, PT - 05/17/2025 4:25 PM EDT Physical Therapy Physical Therapy Treatment Patient Name: Nadir Beth : 1940 Today's Date: 05/17/2025 Problem List[1] Start Time: 155 Stop Time: 1610 Time Calculation (min): 18 min PT Therapeutic Procedures Time Entry Therapeutic Activity Time Entry: 15 Objective General Visit Information: PT Last Visit PT Received On: 05/17/25 General Subjective: The patient was agreeable to PT, and was very pleasant, and cooperative. Vision - Basic Vision - Basic Assessment Current Vision: Wears glasses all the time Precautions Precautions UE Weight Bearing Status: (No BUE WB restrictions) LE Weight Bearing Status: (No BLE WB restrictions.) Pain Pain Assessment Pain Score: 3 Pain Type: Chronic pain Pain Location: (BLEs) Cognition Cognition Overall Cognitive Status: Within Functional Limits Arousal/Alertness: Appropriate responses to stimuli Orientation Level: Oriented X4 Following Commands: Follows all commands and directions without difficulty Safety Judgment: Decreased awareness of need for assistance Awareness of Errors: Decreased awareness of errors Attention Span: Attends with cues to redirect Memory: Appears intact Problem Solving: Assistance required to identify errors made Communication: Intact General Assessment General Assessment Skin Integrity: warm, dry with chronic skin discoloration noted throughout the B lower legs. Edema: none significant noted throughout all 4 extremities peripherally. Tone: (no tonal abnormalities noted.) Static Sitting Balance Static Sitting Balance Static Sitting-Balance Support: Feet supported, No upper extremity supported Static Sitting-Level of Assistance: Independent Static Standing Balance Static Standing Balance Static Standing-Balance Support: Right upper extremity supported, Left upper extremity supported, With device Static Standing-Level of Assistance: Independent Dynamic Standing Balance Dynamic Standing Balance Dynamic Standing-Balance Support: Right upper extremity supported, Left upper extremity supported, With device Dynamic Standing-Balance: Forward lean Dynamic Standing Balance-Level of Assistance: Contact guard General Assessments: Cognition Overall Cognitive Status: Within Functional Limits Arousal/Alertness: Appropriate responses to stimuli Orientation Level: Oriented X4 Following Commands: Follows all commands and directions without difficulty Safety Judgment: Decreased awareness of need for assistance Awareness of Errors: Decreased awareness of errors Attention Span: Attends with cues to redirect Memory: Appears intact Problem Solving: Assistance required to identify errors made Communication: Intact Treatment: Therapeutic Exercise Therapeutic Exercise Activity 1: The patient performed seated B LAQs, hip flexion, ankle pumps prior to standing/ambulating. Therapeutic Activity Therapeutic Activity Time Entry: 15 Transfers Ambulation comments: The patient ambulated 35 ft. x 1 with a wheeled walker and a CGA of 1 requiredfor decreased balance, and weakness throughout the BLEs. Outcome Assessments 6 Clicks (Mobility) Help from another person turning from your back to your side while in a flat bed without using bedrails: A little Help from another person moving from lying on your back to sitting on the side of a flat bed without using bedrails: A little Help from another person moving to and from a bed to a chair (including a wheelchair): A little Help from another person standing up from a chair using your arms (e.g. wheelchair or bedside chair): None Help from another person to walk in hospital room: A little Help from another person climbing 3-5 steps with a railing: A lot Mobility 6 Clicks T-Score: 18 Assessment/Plan PT Assessment PT Assessment/PROJECT CONSTRUCTION MANAGER Summary: The patient tolerated the PT session well. No adverse response. Patient will continue to benefit from skilled PT intervention in order to maixmize his potential to reach all functional goals, and increase overall strength/endurance. Prognosis: Good Evaluation/Treatment Tolerance: Patient tolerated treatment well Medical Staff Made Aware: Yes PT Education/Comments: Role of PT, correct transfer techniques, use of walker. Plan Treatment/Interventions: Functional transfer training, LE strengthening/ROM, Endurance training, Gait training, Balance training PT Plan: Skilled PT PT Frequency: 4 times per week PT Discharge Recommendations: Patient is able to return to prior living environment (Recommend PT at his rehabilitation facility in order to improve overall functional skill level, and increase overall strength.) PT - Discharge Recommendations Placed: Yes The patient was left in the bedside chair sitting up with legs reclined/elevated following PT treatment. The patient's call light was within reach, telemetry, and chair alarm were reconnected, and activated, and patient's needs were met. Family was present in the room for the PT treatment. Goals: Multi-Disciplinary Problems (from Physical Therapy) Active Problems Problem: Balance Start Date: 05/10/25 Goal Start Date Expected End Date End Date LTG - Patient will maintain standing and sitting balance to allow for completion of daily activities 05/10/25 05/24/25 -- Problem: Mobility Start Date: 05/10/25 Goal Start Date Expected End Date End Date LTG - Patient will ambulate at least 100 feet with stand-by/contact guard using least restrictive device to improve tolerance to activity 05/10/25 05/24/25 -- Problem: Transfers Start Date: 05/10/25 Goal Start Date Expected End Date End Date LTG - Patient will complete all transfers with stand-by/contact guard using least restrictive device to improve functional independence 05/10/25 05/24/25 -- Goal Start Date Expected End Date End Date LTG - Patient will perform all bed mobility with no assistance to improve functional independence 05/10/25 05/24/25 -- Problem: PT Misc Start Date: 05/10/25 Goal Start Date Expected End Date End Date Patient will participate in at least 25 minutes of physical activity to improve tolerance to activity 05/10/25 05/24/25 -- Goal Start Date Expected End Date End Date Patient will participate in strength training to maintain functional strength required for independent mobility. 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 Cardiology Inpatient Progress Note Subjective Reason for consult: Acute on chronic HFpEF, hypertension urgency, TAVR. HPI: Nadir Beth is a 85 y.o. year old male with significant medical history of A-fib on Xarelto, hypertension, HFpEF, CKD, recent history of CVA 4 months back, renal artery stenosis transferred from [facility] for acute on chronic heart failure. Patient had history of stroke 4 months back and was in rehab patient has been having progressive lower extremity edema for few days. Patient was advised to increase his Lasix from 20 to 40 mg and blood work was done which showed BNP 6214 and was advised to go to the ED. In [place] ED chest x-ray showed pulmonary vascular congestion with right-sided pleural effusion and EKG showed A-fib, patient was found to be hypertensive with blood pressure 190/68. Patient follows up with Dr. Bland who had scheduled right heart cath on 05/10/2025. Echo done today showed unable to obtain EF secondary to rhythm however it was preserved, severe RA and LA enlargement, moderate to severe , AR, mild MR and TR. 05/17/2025: Patient seen evaluated bedside today. He appears more coherent today. Denies chest pain, shortness of breath, palpitations, lightheadedness or dizziness, or lower extremity edema. 12-24 hour telemetry reviewed: A fib 78-86 bpm. 05/16/2025: Patient is seen and evaluated at the bedside today, he is status post TAVR yesterday. He was confused overnight and currently wearing mitts. Denies chest pain, shortness of breath, palpitations, lightheadedness/dizziness or lower extremity. Temporary pacer placed due to new LBBB. EKG still has LBBB. Echo shows good TAVR function, moderatepericardial effusion (he had at baseline also).Temporary pacer removed. Plan for limited TTE tomorrow to eval pericardial effusion. Discharge tomorrow with 30 day event monitor due to new LBBB. 12-24 hour telemetry reviewed: a fib 97, 80-105, PVC 11 05/15/2025: Patient seen evaluated bedside today, he is accompanied by his family. No events overnight. He denies chest pain, shortness of breath, palpitations, lightheadedness dizziness, lower extreme edema. Remains in stable condition. Plan for TAVR today. 12-24 hour telemetry reviewed: A fib, 64-92 bpm. 05/14/2025: Patient seen evaluated bedside today. He appears in no acute distress, denies chest pain, shortnessof breath, palpitations, lightheaded dizziness, or lower extremity edema. Tentative plan for TAVR tomorrow pending scheduling 12-24 hour telemetry reviewed: SR 72, 61-96 bpm 05/13/2025: Patient seen and evaluated at the bedside today, he is accompanied by his bedside nurse. Currently eating breakfast, appears in no acute distress, awake and alert. He remains on room air saturating 94 to 95%. Reportedly confused overnight. Blood pressure noted to be elevated in the 150's systolic, however he has not received morning antihypertensive medications yet. Otherwise, he denies chest pain, shortness of breath, palpitations, lightheaded or dizziness, or lower extremity edema. Plan to transition from IV Lasix to p.o. Plan to ambulate today. 12-24 hour telemetry reviewed: A fib 78-86 bpm. PAST MEDICAL HISTORY: Medical History[1] PAST SURGICAL HISTORY: Surgical History[2] FAMILY HISTORY: family history is not on file. SOCIAL HISTORY: Social History[3] REVIEW OF SYSTEMS: General: Denies fever, chills, fatigue, weight loss, or malaise. HENT: Head: Denies headache or dizziness. Eyes: Denies vision changes. Nose: Denies nasal congestion, discharge, or epistaxis. Throat: Denies pain or difficulty swallowing. Pulmonary: Denies shortness of breath, cough, wheezing, or hemoptysis. Cardiovascular: Denies chest pain, palpitations, dizziness, or syncope. Peripheral Vascular: Denies leg swelling, cold extremities or claudication. Abdomen: Denies abdominal pain, nausea, vomiting, diarrhea, constipation, or bloating. No changes in appetite. Neurological: Denies headaches, weakness, numbness, tingling, or difficulty with coordination. Skin: Denies rashes, lesions, or itching. ALLERGIES: Allergies[4] Objective 12-24 hour telemetry reviewed: a fib 78-86, PVC 25 CURRENT MEDS: cholecalciferol, 1,000 Units, oral, Daily cloNIDine, 0.2 mg, oral, TID dapagliflozin propanediol, 10 mg, oral, Daily ezetimibe, 10 mg, oral, Daily furosemide, 40 mg, oral, Daily hydrALAZINE, 25 mg, oral, TID insulin glargine, 10 Units, subcutaneous, BID insulin lispro, 0-10 Units, subcutaneous, TID with meals And insulin lispro, 0-8 Units, subcutaneous, Nightly labetalol, 300 mg, oral, TID mometasone-formoterol, 2 puff, inhalation, BID piperacillin-tazobactam, 4.5 g, intravenous, q8h prednisoLONE acetate, 1 drop, Right Eye, BID primidone, 50 mg, oral, BID rivaroxaban, 15 mg, oral, Daily with evening meal spironolactone, 25 mg, oral, Daily tamsulosin, 0.4 mg, oral, Daily with evening meal umeclidinium, 1 puff, inhalation, Daily PRN medications: acetaminophen, glucose OR dextrose 50 % in water (D50W), melatonin, polyethylene glycol Patient Vitals for the past 24 hrs: BP Temp Temp src Pulse Resp SpO2 Weight 05/17/25 1202 143/62 36.5 ??C (97.7 ??F) Temporal 74 15 99 % -- 05/17/25 0918 167/78 36.6 ??C (97.9 ??F) Temporal 88 26 100 % -- 05/17/25 0526 -- -- -- -- -- -- 72.9 kg (160 lb 12.8 oz) 05/17/25 0400 (!) 115/44 -- -- 80 12 96 % -- 05/17/25 0000 111/51 -- -- 76 19 99 % -- 05/16/25 2000 135/55 36.5 ??C (97.7 ??F) Temporal 86 11 97 % -- 05/16/25 1601 141/68 -- -- 85 13 95 % -- 05/16/25 1505 130/57 36.4 ??C (97.5 ??F) Temporal -- 14 -- -- BP 143/62 Pulse 74 Temp 36.5 ??C (97.7 ??F) (Temporal) Resp 15 Ht 1.828 m (5' 11.97 ) Wt 72.9 kg (160 lb 12.8 oz) SpO2 99% BMI 21.83 kg/m?? Wt Readings from Last 3 Encounters: 05/17/25 72.9 kg (160 lb 12.8 oz) PHYSICAL EXAM: General: Alert and oriented, Appears comfortable in no acute distress. HENT: Head: Normocephalic, atraumatic. Eyes: Conjunctiva clear, sclera anicteric. No periorbital edema. Nose: No nasal congestion or discharge. Throat: Mucous membranes moist and pink. Neck: Supple, no lymphadenopathy. No bruits. No jugular venous distension (JVD) at 45??. Pulmonary: Symmetrical chest rise, no accessory muscle use. Clear to auscultation bilaterally. No wheezes, rales, or rhonchi. No tenderness. Cardiovascular: RUSB murmur. Peripheral Vascular: Pulses (radial, dorsalis pedis, posterior tibial) 2+ bilaterally and symmetrical. No edema, cyanosis, or clubbing. Capillary refill <2 seconds. Abdomen: Flat, no visible pulsations or distension. Bowel sounds normoactive in all quadrants. Soft, non-tender, no masses or hepatosplenomegaly. Extremities: No cyanosis, clubbing, or edema. Warm to touch, full range of motion. No tenderness. Neurological: Alert and oriented to person, place, and time. Normal sensation in all extremities. Skin: Warm, dry, and intact. No rashes, lesions, pallor, or cyanosis. Capillary refill <2 seconds. No diaphoresis or ecchymosis. Relevant Lab Results: Lab Results Component Value Date WBC 12.14 (H) 05/17/2025 HGB 10.4 (L) 05/17/2025 HCT 34.2 (L) 05/17/2025 MCV 84.2 05/17/2025 PLT 256 05/17/2025 Lab Results Component Value Date NA 140 05/17/2025 K 3.9 05/17/2025 CL 104 05/17/2025 ANIONGAP 15 05/17/2025 BUN 38 (H) 05/17/2025 CREATININE 1.73 (H) 05/17/2025 CALCIUM 8.6 05/17/2025 MG 2.0 05/10/2025 Lab Results Component Value Date BILITOT 0.5 05/17/2025 ALKPHOS 68 05/17/2025 AST 13 05/17/2025 ALT <3 (L) 05/17/2025 PROT 6.3 05/17/2025 ALBUMIN 3.4 (L) 05/17/2025 Lab Results Component Value Date CHOLESTEROL 187 05/11/2025 TRIGLYCERIDES 93 05/11/2025 HDL 69 05/11/2025 LDL CALC 99 05/11/2025 Lab Results Component Value Date TSH 1.34 05/10/2025 No results found for: DIGOXIN LVL Lab Results Component Value Date HGBA1C 9.3 (H) 05/11/2025 No results found for: TROPONIN I , TROPONIN T , POC TROPONIN I , POC TROPONIN I. Lab Results Component Value Date BNP 736 (H) 05/10/2025 I have personally reviewed and analyzed the above laboratory results. These findings have been analyzed in the context of the patient's clinical presentation. Relevant Imaging Results / Cardiovascular Diagnostic Studies: Encounter Date: 05/10/25 ECG 12 lead Result Value Ventricular Rate 85 QRS DURATION 146 QT Interval 424 QTC CALCULATION(BAZETT) 504 R-[place] -56 T Wave [place] 106 Impression Atrial fibrillation Left axis deviation Left bundle branch block Abnormal ECG When compared with ECG of 16-MAY-2025 10:06, (unconfirmed) No significant change was found Confirmed by Kasandra DELAROSA, GERI Penn ([id number]) on 05/16/2025 4:16:44 PM Limited Echo (TTE) w/wo Limited Doppler, Color Flow, Imaging Agent, Strain, 3D, Bubble Study 1 1 [facility] Heart Station [address] [place] [address] [phone] (fax) Echocardiogram-[facility] Name: NADIR BETH Study Date: 05/17/2025 08:04 AM B/P: 115 mmHg/40 mmHg HR: Date of : 1940 Location: [facility] Height: 71 in. Age: 85 year(s) Patient Room: 3184 Weight: 160 lb. Gender: Male Patient Status: InPt BSA: 1.92 m2 Indication: Pericardial Effusion, S/P TAVR procedure;26 mm [place] S3 Ultra Resilia valve Examination: Limited Echo/Limited Doppler, Color flow imaging Image Quality: Fair Patient Consent: Procedure explained to patient Conclusions Left Ventricle: Global left ventricular systolic function is difficult to assess due to rhythm but appears preserved. Right Ventricle: Right ventricular systolic function appears normal. Doppler studies suggest severely elevated right sided pressures. Left Atrium: The left atrium appears enlarged. Aortic Valve: The TAVR valve appears to be well seated with no residual flow.. Tricuspid Valve: Mild-moderate tricuspid regurgitation. Pericardium: There is a small to moderate pericardial effusion. Pericardial effusion appears unchanged from 05/16/25. Measurements Left Ventricle Label Value Normal Value LVOT VTI 16.3 cm (18cm - 22cm) LVOT PGmax 3 mmHg LVOT PGmean 2 mmHg Tricuspid Valve Label Value Normal Value RA Pressure 15 mmHg RVSP 73 mmHg Valvular Assessment LVOT 0.7 - 1.1 m/sec Aortic Valve 1.0 - 1.7 m/sec Mitral Valve 0.6 - 1.3 m/sec Tricuspid Valve 0.3 - 0.7 m/sec Pulmonic Valve 0.6 - 0.9 m/sec Regurgitation Trivial MildMod Max Velocity 0.82 m/sec Findings Left Ventricle: Global left ventricular systolic function is difficult to assess due to rhythm but appears preserved. Right Ventricle: Right ventricular systolic function appears normal. Doppler studies suggest severely elevated right sided pressures. Left Atrium: The left atrium appears enlarged. Right Atrium: The right atrium appears enlarged. Mitral Valve: The mitral valve is normal in mobility and thickness. Trivial mitral regurgitation. Aortic Valve: The TAVR valve appears to be well seated with no residual flow.. Tricuspid Valve: Normal tricuspid valve. Mild-moderate tricuspid regurgitation. Pulmonic Valve: Pulmonary valve not visualized. Great Vessels: IVC: The IVC is mildly dilated. Respiratory inspiration less than 50%. Pericardium: There is a small to moderate pericardial effusion. Pericardial effusion appears unchanged from 05/16/25. Procedure Staff Reading Group: [facility] National Sales Representative: Albert Bee RDCS Ordering Physician: NICOLE REYES 05/10/2025: Left Ventricle: The left ventricle is normal size. Global left ventricular systolic function is difficult to assess due to rhythm but appears preserved. Left ventricular wall thickness is increased. Right Ventricle: The right ventricle is normal in size. Normal right ventricular systolic function. Doppler studies suggest severely elevated right sided pressures. Left Atrium: The left atrium is severely enlarged. Mitral Valve: Mild mitral regurgitation. Aortic Valve: Mild aortic valve regurgitation. Moderate to severe aortic stenosis. Overall Conclusions: Doppler velocities may be underestimated due to rhythm. I have personally reviewed and analyzed all available cardiac diagnostic tests and imaging reports.Findings have been analyzed in the context of the patient's clinical status. ASSESSMENT & PLAN #Aortic stenosis #Status post TAVR HERNANDEZ with stair climbing Severe aortic stenosis on 05/10/2025 TTE LHC/RHC 05/11/2025: Moderate CAD, PCWP 28 mmHg, normal cardiac index of 2.7. He was seen by CT surgery for aortic stenosis evaluation. He is not a current surgical candidate for aortic valve replacement Status post TAVR 05/15/25: Temporary pacer placed due to new LBBB. EKG still has LBBB. Echo shows good TAVR function, moderatepericardial effusion (he had at baseline also).Temporary pacer removed. Plan for limited TTE tomorrow to eval pericardial effusion. Discharge tomorrow with 30 day event monitor due to new LBBB. - Continue Xarelto 15 mg #HFpEF NYHA II Appears euvolemic Compensated Weight today is 160 pounds ---> 178 pounds on admission 05/10/2025 I's and O's: Net -5.6 L since admission, net -60 cc overnight Most recent TTE 05/10/2025: Left ventricular systolic function appears preserved. Mild MR, moderate to severe aortic stenosis. Right heart cath 05/11/25: PCWP 28 mmHg (large V waves to 40 mmHg also noted, consistent with acute heart failure and/or mitral valve disease) Left heart cath 05/11/25: Moderate CAD 05/17/2025 labs: Sodium 140, potassium 3.9, creatinine 1.73, albumin 3.4, EGFR 38.0 GDMT limited by CKD: - Continue Farxiga 10 mg daily - Continue furosemide 40 mg daily p.o. - Continue spironolactone 25 mg daily #Paroxysmal A-fib [id number] = 5 (HTN, age, HF, CVA) Denies palpitations 12-24 hour telemetry reviewed: a fib 78-86, PVC 25 - Was transition to heparin gtt in anticipation of TAVR today #Elevated troponin Denies chest pain Mildly elevated troponin most likely secondary to chronic myocardial injury Troponin 21--> 26 last on 05/10/2025 #Hypertension urgency Stable - Continue clonidine 0.2 mg 3 times daily - Continue hydralazine 25 mg 3 times daily - Continue labetalol 300 mg 3 times daily - Continue spironolactone 25 mg daily #CAD Denies chest pain Moderate coronary artery disease on coronary angiogram 05/11/2025 - Continue aspirin 81 mg daily - Continue ezetimibe 10 mg daily #CVA Recent stroke #Renal artery stenosis Renal artery stenosis status post left renal artery stent 2014 #CKD Improved #Hyperlipidemia Has statin allergy List recent lipid panel reviewed, 05/11/2025: LDL 99, HDL 69, triglycerides 93, total cholesterol 187 LDL target goal should be at least < 70, ideally < 55 per most recent guidelines - Consider PCKS9 inhibitor - Continue ezetimibe 10 mg daily Plan Overview: Okay to discharge cardiology standpoint Discharge with 30 day event monitor due to new LBBB Follow-up scheduled 05/28/25, 06/18/[address] Cisneros This note was partially composed using voice recognition software. While every effort was made to ensure accuracy, some unintentional telescope repairer errors may be present. [facility] [1] History reviewed. No pertinent past medical history. [2] History reviewed. No pertinent surgical history. [3] Social History Tobacco Use Smoking status: Former Types: Cigarettes Smokeless tobacco: Never [4] Allergies Allergen Reactions Aminolevulinic Acid Hcl Unknown Iodinated Contrast Media Unknown Nitroglycerin Other hypotension Simvastatin Unknown * JIN Haas - 05/17/2025 10:38 AM EDT Discharge Planning MATHEW sent [facility] to [facility]. Patient is medically ready for discharge. MATHEW confirmed facility is able to accept patient today. MATHEW set up ambulance transport with [facility] for 7:35 PM. Call report # ([phone]. Patient and his family notified. Treatment team and facility notified. DC packet left with patient's physical chart. * Chris River PT - 05/17/2025 8:49 AM EDT Physical Therapy A PT treatment was attempted, however the patient was unavailable and out of the room. Will continue to follow patient for PT intervention. * Duane Woods CNP - 05/17/2025 8:38 AM EDT Images from the original note were not included. Cardiothoracic Surgery Progress Note 05/17/2025 Room: [address] [place] [address] Subjective Sitting in bed. No complaints. Denies chest pain. Discharged from ICU yesterday. Temp pacer has been removed. No bradyarrhythmias overnight. Resumed Xerelto yesterday. Tolerating regular diet. Objective Patient Vitals for the past 24 hrs: BP Temp Temp src Pulse Resp SpO2 Weight 05/17/25 0918 167/78 36.6 ??C (97.9 ??F) Temporal 88 26 100 % -- 05/17/25 0526 -- -- -- -- -- -- 72.9 kg (160 lb 12.8 oz) 05/17/25 0400 (!) 115/44 -- -- 80 12 96 % -- 05/17/25 0000 111/51 -- -- 76 19 99 % -- 05/16/25 2000 135/55 36.5 ??C (97.7 ??F) Temporal 86 11 97 % -- 05/16/25 1601 141/68 -- -- 85 13 95 % -- 05/16/25 1505 130/57 36.4 ??C (97.5 ??F) Temporal -- 14 -- -- 05/16/25 1200 111/53 -- -- 76 14 94 % -- Physical Exam Appears comfortable without distress. Respirations are easy and breath sounds are clear throughout. Heart RRR, S1 is 2 without murmur. Abdomen is soft and nondistended. Skin is warm and dry. No lower extremity edema Peripheral pulses are weak, but palpable. Lab Results Component Value Date NA 140 05/17/2025 K 3.9 05/17/2025 CL 104 05/17/2025 ANIONGAP 15 05/17/2025 BUN 38 (H) 05/17/2025 CREATININE 1.73 (H) 05/17/2025 CALCIUM 8.6 05/17/2025 MG 2.0 05/10/2025 Lab Results Component Value Date BILITOT 0.5 05/17/2025 ALKPHOS 68 05/17/2025 AST 13 05/17/2025 ALT <3 (L) 05/17/2025 PROT 6.3 05/17/2025 ALBUMIN 3.4 (L) 05/17/2025 Lab Results Component Value Date WBC 12.14 (H) 05/17/2025 RBC 4.06 (L) 05/17/2025 HGB 10.4 (L) 05/17/2025 HCT 34.2 (L) 05/17/2025 PLT 256 05/17/2025 NRBC 0.0 05/17/2025 No results found for this or any previous visit from the past 1 day. Assessment/Plan Principal Problem: Chest pain Active Problems: Primary hypertension Acute congestive heart failure ([facility]) History of CVA (cerebrovascular accident) Type 2 diabetes mellitus, with long-term current use of insulin ([facility]) Other hyperlipidemia Chronic atrial fibrillation ([facility]) Chronic kidney disease Elevated troponin S/P TAVR (transcatheter aortic valve replacement) Aortic stenosis, severe Angina pectoris, unstable ([facility]) Nonrheumatic aortic valve stenosis Plan: S/P TAVR on 05/15/25. Temporary pacer was placed due to new LBBB. It has since been removed. No bradyarrhythmias. -Echocardiogram on 05/16/25 showed TAVR valve to be seated in the aortic position with normal Dopplerflows. No prosthesis regurgitation. Aortic Valve Measurements AV PGmean: 5.00 mmHg. Tricuspid Valve: Moderate tricuspid regurgitation. Pericardium: There is a small to moderate pericardial effusion. Features are not consistent with tamponade physiology. -Scheduled for limited TTE this AM to re-evaluate the pericardial effusion. Plan for discharge later today with 30 day event monitor due to new LBBB. -Medical management per primary and cardiology teams To reach Cardiothoracic Surgery Inpatient from 8am-4pm call Ascom #[phone]. Only use [employer]Digital chat for general questions. If unable to reach Ascom Number call hospital stave log cut off saw operator for Cardiothoracic Provider Wood [employer]inder. Cardiothoracic Surgery outpatient Office Number [phone]. Cardiothoracic Surgery outpatient . * Nitin Raza MD - 05/17/2025 7:13 AM EDT Images from the original note were not included. Primary Pulmonology Progress Note Patient - Nadir Beth Age - 85 y.o. - 1940 Date of Admission - 05/10/2025 2:37 AM INTERVAL HISTORY No acute overnight events. On RA. hemoglobin stable. BP controlled. Seen after echo in the am having breakfast in chair, in no acute distress. Subjective HPI/Hospital Course Nadir Beth is an 85 y.o. male with a PMH of HFpEF, paroxysmal A-fib on Xarelto, CVA 4 monthsago, T2DM, hypertension, renal artery stenosis left renal stent, CKD, and hyperlipidemia who was admitted as a direct transfer from [facility] on 05/10/2025 for acute on chronic heart failure. 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 He presented to the ED on the advice of his physician following an increase in lower extremity edema with associated labs showing a BNP 6200. In the [facility] ED he was found to have pulmonary vascular congestion with right sided pleural effusion on chest x-ray, and found to be hypertensive at 190/68, and EKG showed A-fib, he was initially managed medically with lasix and antihypertensives prior to transfer. Patient follows up with Dr. Bland who had scheduled right heart cath on 05/10/2025. At [facility] echo was performed which was unable to obtain an EF due to heart rhythm but was preserved, there was associated severe RA and LA enlargement, moderate to severe , AR, mild MR and TR. Right heart cath revealed moderate coronary artery disease with a borderline significant mid LAD lesion and was recommended TAVR which was performed on 05/15/2025 and transferred to the ICU for 24 hour observation. Repeat echo showed EF of 70% mean PG 3 mmHg, no valvular or paravalvular insufficiency. OBJECTIVE Vitals: height is 1.828 m (5' 11.97 ) and weight is 72.9 kg (160 lb 12.8 oz). His temporal temperature is 36.5 ??C (97.7 ??F). His blood pressure is 115/44 (abnormal) and his pulse is 80. His respiration is 12 and oxygen saturation is 96%. Temp: [36.4 ??C (97.5 ??F)-36.5 ??C (97.7 ??F)] 36.5 ??C (97.7 ??F) Heart Rate: [76-90] 80 Resp: [11-19] 12 BP: (109-141)/(44-81) 115/44 Physical Exam Constitutional: General: He is not in acute distress. Appearance: He is not ill-appearing. HENT: Head: Normocephalic. Eyes: Pupils: Pupils are equal, round, and reactive to light. Cardiovascular: Rate and Rhythm: Normal rate and regular rhythm. Pulses: Normal pulses. Heart sounds: Normal heart sounds. Pulmonary: Effort: Pulmonary effort is normal. No respiratory distress. Abdominal: General: There is no distension. Palpations: Abdomen is soft. Musculoskeletal: Cervical back: Neck supple. Right lower leg: Edema present. Left lower leg: Edema present. Skin: General: Skin is warm. Capillary Refill: Capillary refill takes less than 2 seconds. Neurological: General: No focal deficit present. Mental Status: He is alert. Mental status is at baseline. Psychiatric: Mood and Affect: Mood normal. Objective Weight: Admission weight: 81 kg (178 lb 9.2 oz) Wt Readings from Last 1 Encounters: 05/17/25 72.9 kg (160 lb 12.8 oz) Input/Output: Intake/Output Summary (Last 24 hours) at 05/17/2025 1922 Last data filed at 05/17/2025 0631 Gross per 24 hour Intake 672.71 ml Output 500 ml Net 172.71 ml Ventilator: Lab Results ABG: No results found for: PHART , HQI5YFQ , PO2ART , OBG0HTS , IONCALART No results found for: PHVEN , PDW7OIA , PO2VEN , AZK7DQR , IONCALVEN CBC: Results from last 7 days Lab Units 05/16/25 0310 05/15/25 0339 05/14/25 1528 05/13/25 0343 WBC AUTO 10*3/uL 14.93* 12.04* -- 10.18 HEMOGLOBIN g/dL 10.0* 10.3* -- 9.8* HEMATOCRIT % 33.1* 33.6* -- 31.3* PLATELETS AUTO 10*3/uL 306 306 297 287 Coagulation: Results from last 7 days Lab Units 05/16/25 1504 05/16/25 0645 05/15/25 1134 APTT Seconds 77.8* 63.8* 73.2* Metabolic Panel: Results from last 7 days Lab Units 05/16/25 0310 05/15/25 0339 05/14/25 0338 SODIUM mmol/L 140 137 138 POTASSIUM mmol/L 4.2 4.5 3.8 CHLORIDE mmol/L 103 99 100 CO2 mmol/L 22 27 29 BUN mg/dL 41* 34* 34* CREATININE mg/dL 1.71* 1.61* 1.74* GLUCOSE mg/dL 222* 255* 186* CALCIUM mg/dL 8.6 8.9 8.4* Liver Panel: No lab exists for component: TOTALPROTEI , LABBILIRUBIN , TOTALBILIRUB , BILIRUB , BILIRUBIND Glucose: Hgb A1c: Results from last 7 days Lab Units 05/11/25 0427 HEMOGLOBIN A1C % 9.3* Cardiac: Results from last 7 days Lab Units 05/10/25 0821 BNP pg/mL 736* Anemia Labs: Lipid Panel: Results from last 7 days Lab Units 05/11/25 0427 CHOLESTEROL mg/dL 187 HDL mg/dL 69 LDL CALC mg/dL 99 TRIGLYCERIDES mg/dL 93 Urine Labs: No results found for: WBCU , UROBILINOGEN Additional Labs: No lab exists for component: LACTICACID , PROCALCITON Radiology ECG 12 lead Atrial fibrillation Left axis deviation Left bundle branch block Abnormal ECG When compared with ECG of 16-MAY-2025 10:06, (unconfirmed) No significant change was found Confirmed by Kasandra DELAROSA, GERI Penn ([id number]) on 05/16/2025 4:16:44 PM ECG 12 lead Atrial fibrillation with a competing junctional pacemaker with premature ventricular or aberrantly conducted complexes Left axis deviation Left bundle branch block Abnormal ECG When compared with ECG of 15-MAY-2025 14:37, No significant change was found Confirmed by Kasandra DELAROSA, GERI Penn ([id number]) on 05/16/2025 4:16:18 PM Limited Echo (TTE) w/wo Limited Doppler, Color Flow, Imaging Agent, Strain, 3D, Bubble Study 1 1 [facility] Heart Station [address] [place], [place] [id number] (fax) Echocardiogram-[facility] Name: NADIR BETH Study Date: 05/16/2025 10:05 AM B/P: 125 mmHg/44 mmHg HR: Date of : 1940 Location: [facility] Height: 71 in. Age: 85 year(s) Patient Room: 3184 Weight: 158 lb. Gender: Male Patient Status: InPt BSA: 1.91 m2 Indication: Aortic Valve Stenosis, S/P TAVR procedure;26 mm [place] S3 Ultra Resilia valve Examination: Limited Echo/Limited Doppler, Color flow imaging Image Quality: Fair Patient Consent: Procedure explained to patient Conclusions Left Ventricle: The left ventricle appears normal in size. Global left ventricular systolic function is normal. The EF is 65 % visually. Left ventricular wall thickness is normal. No regional wall motion abnormality. Right Ventricle: The right ventricle appears normal in size. Right ventricular systolic function appears normal. Left Atrium: The left atrium appears enlarged. Right Atrium: The right atrium appears enlarged. Mitral Valve: Mild mitral regurgitation. Aortic Valve: The TAVR valve is well seated in the aortic position with normal Doppler flows. No prosthesis regurgitation. Aortic Valve Measurements AV PGmean: 5.00 mmHg. Tricuspid Valve: Moderate tricuspid regurgitation. Pericardium: There is a small to moderate pericardial effusion. Features are not consistent with tamponade physiology. Measurements Left Ventricle Label Value Normal Value LVOT VTI 21.9 cm (18cm - 22cm) LVOT PGmax 4 mmHg LVEF visual 65 % LVOT PGmean 2 mmHg Aortic Valve Label Value Normal Value AV DVI 0.64 AV VTI 28.7 cm Valvular Assessment LVOT 0.7 - 1.1 m/sec Aortic Valve 1.0 - 1.7 m/sec Mitral Valve 0.6 - 1.3 m/sec Tricuspid Valve 0.3 - 0.7 m/sec Pulmonic Valve 0.6 - 0.9 m/sec Regurgitation Mild Moderate Max Velocity 1.00 m/sec 1.57 m/s Max Gradient 10.00 mmHg Mean Gradient 5.00 mmHg Findings Left Ventricle: The left ventricle appears normal in size. Global left ventricular systolic function is normal. The EF is 65 % visually. Left ventricular wall thickness is normal. No regional wall motion abnormality. Right Ventricle: The right ventricle appears normal in size. Right ventricular systolic function appears normal. A pacemaker wire is seen in the right ventricle. Left Atrium: The left atrium appears enlarged. Right Atrium: The right atrium appears enlarged. Mitral Valve: There is nonspecific thickening of the mitral valve leaflet. Mild mitral annular calcification. Mild mitral regurgitation. Aortic Valve: The TAVR valve is well seated in the aortic position with normal Doppler flows. No prosthesis regurgitation. Aortic Valve Measurements AV PGmean: 5.00 mmHg. Tricuspid Valve: Normal tricuspid valve. Moderate tricuspid regurgitation. Pulmonic Valve: Pulmonary valve appears normal. Aorta: The aortic root exhibits normal size. Great Vessels: IVC: The inferior vena cava is poorly visualized. Pericardium: There is a small to moderate pericardial effusion. Features are not consistent with tamponade physiology. Procedure Staff Reading Group: [facility] National Sales Representative: Katelyn Martinez RDCS Ordering Physician: Shamar Nolan MD chest 1 view Narrative: XR CHEST 1 VIEW 05/16/2025 10:09 AM CLINICAL INDICATIONS: Shortness of breath COMPARISON: None FINDINGS: Right-sided electronic lead noted projected in the region of the right ventricle. Aortic valve replacement.. There is congested lungs particularly on the right with effusion and and poor definition of the lung base and the right hemidiaphragm. Similar changes on the left. Impression: Fluid overload. Evaluate position of the tip of the electronic lead which is thought to be positioned near the apex of the right ventricle. Electronically signed: Mark Melendez MD. Cultures No results found for: BLOOD CULTURE , URINE CULTURE , WOUND CULTURE , CSF CULTURE , TISSUE CULTURE ONLY Medications Scheduled: cholecalciferol, 1,000 Units, oral, Daily cloNIDine, 0.2 mg, oral, TID dapagliflozin propanediol, 10 mg, oral, Daily ezetimibe, 10 mg, oral, Daily furosemide, 40 mg, oral, Daily hydrALAZINE, 25 mg, oral, TID insulin lispro, 0-10 Units, subcutaneous, TID with meals And insulin lispro, 0-8 Units, subcutaneous, Nightly labetalol, 300 mg, oral, TID mometasone-formoterol, 2 puff, inhalation, BID piperacillin-tazobactam, 4.5 g, intravenous, q8h prednisoLONE acetate, 1 drop, Right Eye, BID primidone, 50 mg, oral, BID rivaroxaban, 15 mg, oral, Daily with evening meal spironolactone, 25 mg, oral, Daily tamsulosin, 0.4 mg, oral, Daily with evening meal umeclidinium, 1 puff, inhalation, Daily Infusions: As Needed: PRN medications: acetaminophen, glucose OR dextrose 50 % in water (D50W), melatonin, polyethylene glycol ASSESSMENT AND PLAN Nadir Beth is a 85 y.o. male who presented PMH of HFpEF, paroxysmal A-fib on Xarelto, CVA, T2DM, hypertension, renal artery stenosis left renal stent, and hyperlipidemia who is status post TAVR on 05/15 for aortic stenosis. Post TAVR echo showed a mean PG 3 mmHg and no valvular or paravalvularinsufficiency. Assessment and Plan: Acute on chronic HFpEF 2/2 aortic stenosis s/p TAVR 05/15 HFpEF NYHA II Pre TAVR: Severe aortic valve calcification is present. No aortic valve regurgitation. Severe aortic valve stenosis. Post TAVR: mean PG 3 mmHg, no valvular or paravalvular insufficiency Echo post TAVR 05/15 showed 70% EF. Repeat echo scheduled 05/17: small to moderate pericardial effusion. Pericardial effusion appears unchanged from 05/16/25 GDMT limited by CKD: on faxriga 10 mg daily and aldactone 25 mg daily Continue lasix 40 mg daily home dose (previously on 40 mg BID) Is/Os Cardiology on board Okay to discharge with event monitor from cardiology perspective Leukocytosis Right sided pleural effusion on CXR 05/16 Patient afebrile Follow up blood cultures, pending CXR 05/16: Right pleural effusion; On zosyn 4.5 g q8 started on 05/16 (day 2), continue Discussed with family regarding continue diuresis with outpatient follow up and CXR vs holding xarelto and doing thoracentesis inpatient, they want to discuss more with the daughter Paroxysmal A-fib CHADVASC 7 On xarelto 15 mg, resumed Labetalol 300 mg TID for rate control Primary hypertension with hypertensive urgency on admission cardiology on board On clonidine 0.2 mg 3 times daily, hydralazine 25 mg 3 times daily, labetalol 300 mg 3 times daily,and spironolactone 25 mg daily Monitor BP Type II Diabetes with long-term current use of insulin On metformin, MCS, pioglitazone 45 mg, jardiance 25 mg, and glimepiride 8 mg at home Last A1c: 9.3 on 05/12/25 HumaLog sliding scale ACHS Start lantus 10 units BID, monitor blood sugar level Chronic issues: Hx of CVA Moderate coronary artery disease on coronary angiogram 05/11/2025 Hyperlipidemia Continue Asprin 81 mg daily Continue Zetia 10 mg daily Allergic to statins CKD - no baseline Monitor BMP daily. Avoid nephrotoxic medications DVT prophylaxis: xarelto Lines: PIV Diet: regular Fluids: PO Disposition: [facility] Code Status: Full Code The patient's care was discussed with the attending physician, Nikolas Gonzalez MD. Please see attendingattestation for additional details. Nitin Raza MD Please reach out to the Primary Pulmonary Service if you have any questions or concerns: Primary Bus Repair Supervisor: [phone] Primary Pulmonary Senior Resident: [phone] Cosigned by Nikolas Gonzalez MD at 05/23/2025 8:29 AM EDT Associated attestation - Nikolas Gonzalez MD - 05/23/2025 8:29 AM EDT I reviewed the salient portions of the patient history. I have seen and examined the patient duringrounds with the resident/fellow Dr. Raza on 05/17. I repeated the stephenson components of the exam. Agree with the noted assessment and plan. After reviewing the imaging, the small pleural effusion likely started before the TAVR and seems related to heart failure. We discussed the case with the patient and family, and decided to treat withdiuretics, plan outpatient follow- up with repeat imaging, and if thoracentesis is needed later, anticoagulation should be held. Nikolas Gonzalez MD [facility] Pulmonary and Critical Care Medicine * PAM Ann - 05/16/2025 3:25 PM EDT Physical Therapy Patient defers session at this time due to significant fatigue and headache. Patient recently transferred out of MICU status post TAVR on 05/15. PT will check back at a later time to complete session. Cosigned by Landen Rice PT at 05/16/2025 4:07 PM EDT * Stevo Kinney MD - 05/16/2025 10:21 AM EDT Images from the original note were not included. Medical ICU Progress Note Patient - Nadir Beth Age - 85 y.o. - 1940 Date of Admission - 05/10/2025 2:37 AM HPI/Hospital Course Subjective Nadir Beth is an 85 y.o. male with a PMH of HFpEF, paroxysmal A-fib on Xarelto, CVA, T2DM, hypertension, renal artery stenosis left renal stent, and hyperlipidemia who was admitted as a directtransfer from [facility] on 05/10/2025 for acute on chronic heart failure. 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 He presented to the ED on the advice of his physician following an increase in lower extremity edema with associated labs showing a BNP 6200. In the [facility] ED he was found to have pulmonary vascular congestion with right sided pleural effusion on chest x-ray, and found to be hypertensive at 190/68, initially managed medically with lasix and antihypertensives prior to transfer. At [facility] echo was performed which was unable to obtain an EF due to heart rhythm but was preserved, there was associated severe RA and LA enlargement, moderate to severe , AR, mild MR and TR. Right heart cath revealed moderate coronary artery disease with a borderline significant mid LAD lesion and was recommended TAVR which was performed on 05/15/2025 and transferred to the ICU for 24 hour observation. Repeat echo showed EF of 70% mean PG 3 mmHg, no valvular or paravalvular insufficiency SUBJECTIVE Mr. Beth had no acute overnight events. He is fatigued and oriented to person and time but not place. There are no complaints of chest pain or SOB, but is endorsing mild abdominal pain. He was placed in soft restraints for pulling at IV lines. OBJECTIVE Vitals height is 1.828 m (5' 11.97 ) and weight is 71.8 kg (158 lb 4.6 oz). His temporal temperature is 36.3 ??C (97.3 ??F). His blood pressure is 125/44 (abnormal) and his pulse is 81. His respiration is 13 and oxygen saturation is 95%. Temp: [36.3 ??C (97.3 ??F)-37.2 ??C (99 ??F)] 36.3 ??C (97.3 ??F) Heart Rate: [80-103] 81 Resp: [12-20] 13 BP: (111-171)/(44-100) 125/44 Physical Exam: General: No acute distress, fatigued appearing, Aox2 person and time HEENT: Normocephalic, atraumatic, EOMI, no scleral icterus or erythema Neck: Supple, trachea midline Cardiovascular: Regular rate, variable rhythm, systolic murmur at 6th intercostal midaxillary Respiratory: No acute respiratory distress, clear to auscultation bilaterally, no wheezing, no rales Abdomen: Soft, nontender, nondistended, positive bowel sounds Extremities: No cyanosis, 1+ non pitting edema in LE's Neuro: No focal deficits Skin: Warm, dry, no rashes Weight: Admission weight: 81 kg (178 lb 9.2 oz) Wt Readings from Last 1 Encounters: 05/16/25 71.8 kg (158 lb 4.6 oz) Input/Output: Intake/Output Summary (Last 24 hours) at 05/16/2025 1021 Last data filed at 05/16/2025 0700 Gross per 24 hour Intake 1196.73 ml Output 460 ml Net 736.73 ml Lab Results ABG: No results found for: PHART , SZL9FDX , PO2ART , QCH7ZUC , IONCALART No results found for: PHVEN , SNG6HPR , PO2VEN , TYG9OFF , IONCALVEN CBC: Results from last 7 days Lab Units 05/16/25 0310 05/15/25 0339 05/14/25 1528 05/13/25 0343 WBC AUTO 10*3/uL 14.93* 12.04* -- 10.18 HEMOGLOBIN g/dL 10.0* 10.3* -- 9.8* HEMATOCRIT % 33.1* 33.6* -- 31.3* PLATELETS AUTO 10*3/uL 306 306 297 287 Coagulation: Results from last 7 days Lab Units 05/16/25 0645 05/15/25 1134 05/15/25 0339 APTT Seconds 63.8* 73.2* 51.8* Metabolic Panel: Results from last 7 days Lab Units 05/16/25 0310 05/15/25 0339 05/14/25 0338 05/11/25 0427 05/10/25 0454 SODIUM mmol/L 140 137 138 < > 139 POTASSIUM mmol/L 4.2 4.5 3.8 < > 3.6 CHLORIDE mmol/L 103 99 100 < > 101 CO2 mmol/L 22 27 29 < > 26 BUN mg/dL 41* 34* 34* < > 28* CREATININE mg/dL 1.71* 1.61* 1.74* < > 1.45* GLUCOSE mg/dL 222* 255* 186* < > 156* CALCIUM mg/dL 8.6 8.9 8.4* < > 8.5* MAGNESIUM mg/dL -- -- -- -- 2.0 < > = values in this interval not displayed. Liver Panel: Results from last 7 days Lab Units 05/10/25 0454 ALBUMIN g/dL 3.5 BILIRUBIN TOTAL mg/dL 0.4 ALT U/L 7 AST U/L 14 ALK PHOS U/L 72 Hgb A1c: Results from last 7 days Lab Units 05/11/25 0427 HEMOGLOBIN A1C % 9.3* Cardiac: Results from last 7 days Lab Units 05/10/25 0821 BNP pg/mL 736* Lipid Panel: Results from last 7 days Lab Units 05/11/25 0427 CHOLESTEROL mg/dL 187 HDL mg/dL 69 LDL CALC mg/dL 99 TRIGLYCERIDES mg/dL 93 Radiology ECG 12 lead Atrial fibrillation with a competing junctional pacemaker with premature ventricular or aberrantly conducted complexes Left axis deviation Left bundle branch block Abnormal ECG When compared with ECG of 15-MAY-2025 14:37, No significant change was found Cultures No results found for: BLOOD CULTURE , URINE CULTURE , WOUND CULTURE , CSF CULTURE , TISSUE CULTURE ONLY Medications Scheduled: cholecalciferol, 1,000 Units, oral, Daily cloNIDine, 0.2 mg, oral, TID dapagliflozin propanediol, 10 mg, oral, Daily ezetimibe, 10 mg, oral, Daily furosemide, 40 mg, oral, Daily hydrALAZINE, 25 mg, oral, TID insulin lispro, 0-10 Units, subcutaneous, TID with meals And insulin lispro, 0-8 Units, subcutaneous, Nightly labetalol, 300 mg, oral, TID mometasone-formoterol, 2 puff, inhalation, BID prednisoLONE acetate, 1 drop, Right Eye, BID primidone, 50 mg, oral, BID rivaroxaban, 15 mg, oral, Daily with evening meal spironolactone, 25 mg, oral, Daily tamsulosin, 0.4 mg, oral, Daily with evening meal umeclidinium, 1 puff, inhalation, Daily Infusions: heparin, 0-28 Units/kg/hr, Last Rate: 19 Units/kg/hr (05/16/25 0833) As Needed: PRN medications: glucose OR dextrose 50 % in water (D50W), melatonin, polyethylene glycol ASSESSMENT AND PLAN Assessment Mr. Nadir Beth is a 85 y/o M with PMH of HFpEF, paroxysmal A-fib on Xarelto, CVA, T2DM, hypertension, renal artery stenosis left renal stent, and hyperlipidemia who is status post TAVR on 05/15 for aortic stenosis. Post TAVR echo showed a mean PG 3 mmHg and no valvular or paravalvular insufficiency. He was transferred to the ICU for 24 hour observation period. Plan Acute on chronic HFpEF 2/2 aortic stenosis HFpEF NYHA II Status post TAVR on 05/15 Repeat echo scheduled 05/16 Echo post TAVR 05/15 showed 70% EF Pre TAVR: Severe aortic valve calcification is present. No aortic valve regurgitation. Severe aortic valve stenosis. Post TAVR: mean PG 3 mmHg, no valvular or paravalvular insufficiency Removal of temporary pacemaker scheduled 05/15 Cardiology following Paroxysmal A-fib CHADVASC 7 Holding Xeralto for TAVR; currently on heparin drip, bridging back on 05/16 Labetalol 300 mg TID for rate control Hypertensive urgency - managed by cardiology Continue clonidine 0.2 mg 3 times daily Continue hydralazine 25 mg 3 times daily Continue labetalol 300 mg 3 times daily Continue spironolactone 25 mg daily Type II Diabetes with long-term current use of insulin HumaLog sliding scale ACHS A1c: 9.3 05/12/25 Elevated white count Trend: 10->12->15 Blood cultures Chest ray 05/15 Right pleural effusion; potential pneumonia in setting of elevated white count Zosyn 4.5 g every 8 hours started 05/16 Pulmonology consult Hx of CVA Hyperlipidemia Continue Asprin 81 mg daily Continue Zetia 10 mg daily Allergic to statins CKD - no baseline DVT prophylaxis: Heparin drip Lines: PIV, RIJ central line, temporary pacemaker Diet: Regular Diet Heart Healthy/HTN, CABG,Stroke, (2gNA, low fat, low cholesterol) Fluids: PRN Code Status: Full Cosigned by García Tse MD at 05/16/2025 12:52 PM EDT Associated attestation - García Tse MD - 05/16/2025 12:52 PM EDT I reviewed the salient portions of the patient history. I have seen and examined the patient duringrounds with the resident/fellow Stevo. I repeated the stephenson components of the exam. Agree with the noted assessment and plan. right lower lobe effusion with pneumonia will start the patient on Zosyn. Patient is status post TAVR procedure. García Tse MD * DEBRA Butler - 05/16/2025 10:04 AM EDT Occupational Therapy Name: Nadir Beth Date of : 1940 Today's Date: 05/16/25 Pt is unable to be seen for therapy at this time secondary to Pt is currently on bed rest per nursing and will require OT check after TAVR due to decreased medical status and transfer to MICU. Will check back and complete therapy session as appropriate. Check No Charge Time attempted: 1004 Cosigned by Erin Karimi OT at 05/16/2025 2:22 PM EDT * Ruy Amanda CNP - 05/16/2025 9:40 AM EDT Images from the original note were not included. Cardiology Inpatient Progress Note Subjective Reason for consult: Acute on chronic HFpEF, hypertension urgency, TAVR. HPI: Nadir Beth is a 85 y.o. year old male with significant medical history of A-fib on Xarelto, hypertension, HFpEF, CKD, recent history of CVA 4 months back, renal artery stenosis transferred from [facility] for acute on chronic heart failure. Patient had history of stroke 4 months back and was in rehab patient has been having progressive lower extremity edema for few days. Patient was advised to increase his Lasix from 20 to 40 mg and blood work was done which showed BNP 6214 and was advised to go to the ED. In [place] ED chest x-ray showed pulmonary vascular congestion with right-sided pleural effusion and EKG showed A-fib, patient was found to be hypertensive with blood pressure 190/68. Patient follows up with Dr. Bland who had scheduled right heart cath on 05/10/2025. Echo done today showed unable to obtain EF secondary to rhythm however it was preserved, severe RA and LA enlargement, moderate to severe , AR, mild MR and TR. 05/16/2025: Patient is seen and evaluated at the bedside today, he is status post TAVR yesterday. He was confused overnight and currently wearing mitts. Denies chest pain, shortness of breath, palpitations, lightheadedness/dizziness or lower extremity. Temporary pacer placed due to new LBBB. EKG still has LBBB. Echo shows good TAVR function, moderatepericardial effusion (he had at baseline also).Temporary pacer removed. Plan for limited TTE tomorrow to eval pericardial effusion. Discharge tomorrow with 30 day event monitor due to new LBBB. 12-24 hour telemetry reviewed: a fib 97, 80-105, PVC 11 05/15/2025: Patient seen evaluated bedside today, he is accompanied by his family. No events overnight. He denies chest pain, shortness of breath, palpitations, lightheadedness dizziness, lower extreme edema. Remains in stable condition. Plan for TAVR today. 12-24 hour telemetry reviewed: A fib, 64-92 bpm. 05/14/2025: Patient seen evaluated bedside today. He appears in no acute distress, denies chest pain, shortnessof breath, palpitations, lightheaded dizziness, or lower extremity edema. Tentative plan for TAVR tomorrow pending scheduling 12-24 hour telemetry reviewed: SR 72, 61-96 bpm 05/13/2025: Patient seen and evaluated at the bedside today, he is accompanied by his bedside nurse. Currently eating breakfast, appears in no acute distress, awake and alert. He remains on room air saturating 94 to 95%. Reportedly confused overnight. Blood pressure noted to be elevated in the 150's systolic, however he has not received morning antihypertensive medications yet. Otherwise, he denies chest pain, shortness of breath, palpitations, lightheaded or dizziness, or lower extremity edema. Plan to transition from IV Lasix to p.o. Plan to ambulate today. 12-24 hour telemetry reviewed: A fib 72-100 bpm. PAST MEDICAL HISTORY: Medical History[1] PAST SURGICAL HISTORY: Surgical History[2] FAMILY HISTORY: family history is not on file. SOCIAL HISTORY: Social History[3] REVIEW OF SYSTEMS: General: Denies fever, chills, fatigue, weight loss, or malaise. HENT: Head: Denies headache or dizziness. Eyes: Denies vision changes. Nose: Denies nasal congestion, discharge, or epistaxis. Throat: Denies pain or difficulty swallowing. Pulmonary: Denies shortness of breath, cough, wheezing, or hemoptysis. Cardiovascular: Denies chest pain, palpitations, dizziness, or syncope. Peripheral Vascular: Denies leg swelling, cold extremities or claudication. Abdomen: Denies abdominal pain, nausea, vomiting, diarrhea, constipation, or bloating. No changes in appetite. Neurological: Denies headaches, weakness, numbness, tingling, or difficulty with coordination. Skin: Denies rashes, lesions, or itching. ALLERGIES: Allergies[4] Objective 12-24 hour telemetry reviewed: a fib 97, 80-105, PVC 11 CURRENT MEDS: cholecalciferol, 1,000 Units, oral, Daily cloNIDine, 0.2 mg, oral, TID dapagliflozin propanediol, 10 mg, oral, Daily ezetimibe, 10 mg, oral, Daily furosemide, 40 mg, oral, Daily hydrALAZINE, 25 mg, oral, TID insulin lispro, 0-10 Units, subcutaneous, TID with meals And insulin lispro, 0-8 Units, subcutaneous, Nightly labetalol, 300 mg, oral, TID mometasone-formoterol, 2 puff, inhalation, BID piperacillin-tazobactam, 4.5 g, intravenous, q8h prednisoLONE acetate, 1 drop, Right Eye, BID primidone, 50 mg, oral, BID rivaroxaban, 15 mg, oral, Daily with evening meal spironolactone, 25 mg, oral, Daily tamsulosin, 0.4 mg, oral, Daily with evening meal umeclidinium, 1 puff, inhalation, Daily PRN medications: acetaminophen, glucose OR dextrose 50 % in water (D50W), melatonin, polyethylene glycol Patient Vitals for the past 24 hrs: BP Temp Temp src Pulse Resp SpO2 Weight 05/16/25 1601 141/68 -- -- 85 13 95 % -- 05/16/25 1505 130/57 36.4 ??C (97.5 ??F) Temporal -- 14 -- -- 05/16/25 1200 111/53 -- -- 76 14 94 % -- 05/16/25 1100 109/50 -- -- 80 13 97 % -- 05/16/25 1000 139/61 -- -- 87 13 94 % -- 05/16/25 0900 140/59 -- -- 80 13 93 % -- 05/16/25 0800 127/81 -- -- 90 17 98 % -- 05/16/25 0700 (!) 125/44 -- -- 81 13 95 % -- 05/16/25 0601 -- -- -- -- -- -- 71.8 kg (158 lb 4.6 oz) 05/16/25 0600 147/59 -- -- 80 15 93 % -- 05/16/25 0500 132/71 -- -- 87 16 92 % -- 05/16/25 0400 136/54 36.3 ??C (97.3 ??F) Temporal 89 13 94 % -- 05/16/25 0300 127/50 -- -- 83 16 94 % -- 05/16/25 0200 (!) 127/49 -- -- 90 19 97 % -- 05/16/25 0100 117/50 -- -- 83 17 96 % -- 05/16/25 0000 111/55 36.7 ??C (98.1 ??F) -- 83 14 94 % -- 05/15/25 2300 139/55 -- -- 97 16 95 % -- 05/15/25 2200 140/74 -- -- 95 20 93 % -- 05/15/25 2100 158/62 -- -- 86 19 99 % -- 05/15/25 2000 138/61 37.2 ??C (99 ??F) Temporal 84 14 99 % -- 05/15/25 1900 141/58 -- -- 87 14 97 % -- BP 141/68 Pulse 85 Temp 36.4 ??C (97.5 ??F) (Temporal) Resp 13 Ht 1.828 m (5' 11.97 ) Wt 71.8 kg (158 lb 4.6 oz) SpO2 95% BMI 21.49 kg/m?? Wt Readings from Last 3 Encounters: 05/16/25 71.8 kg (158 lb 4.6 oz) PHYSICAL EXAM: General: Alert and oriented, Appears comfortable in no acute distress. HENT: Head: Normocephalic, atraumatic. Eyes: Conjunctiva clear, sclera anicteric. No periorbital edema. Nose: No nasal congestion or discharge. Throat: Mucous membranes moist and pink. Neck: Supple, no lymphadenopathy. No bruits. No jugular venous distension (JVD) at 45??. Pulmonary: Symmetrical chest rise, no accessory muscle use. Clear to auscultation bilaterally. No wheezes, rales, or rhonchi. No tenderness. Cardiovascular: RUSB murmur. Peripheral Vascular: Pulses (radial, dorsalis pedis, posterior tibial) 2+ bilaterally and symmetrical. No edema, cyanosis, or clubbing. Capillary refill <2 seconds. Abdomen: Flat, no visible pulsations or distension. Bowel sounds normoactive in all quadrants. Soft, non-tender, no masses or hepatosplenomegaly. Extremities: No cyanosis, clubbing, or edema. Warm to touch, full range of motion. No tenderness. Neurological: Alert and oriented to person, place, and time. Normal sensation in all extremities. Skin: Warm, dry, and intact. No rashes, lesions, pallor, or cyanosis. Capillary refill <2 seconds. No diaphoresis or ecchymosis. Relevant Lab Results: Lab Results Component Value Date WBC 14.93 (H) 05/16/2025 HGB 10.0 (L) 05/16/2025 HCT 33.1 (L) 05/16/2025 MCV 84.0 05/16/2025 PLT 306 05/16/2025 Lab Results Component Value Date NA 140 05/16/2025 K 4.2 05/16/2025 CL 103 05/16/2025 ANIONGAP 19 05/16/2025 BUN 41 (H) 05/16/2025 CREATININE 1.71 (H) 05/16/2025 CALCIUM 8.6 05/16/2025 MG 2.0 05/10/2025 Lab Results Component Value Date BILITOT 0.4 05/10/2025 ALKPHOS 72 05/10/2025 AST 14 05/10/2025 ALT 7 05/10/2025 PROT 6.2 05/10/2025 ALBUMIN 3.5 05/10/2025 Lab Results Component Value Date CHOLESTEROL 187 05/11/2025 TRIGLYCERIDES 93 05/11/2025 HDL 69 05/11/2025 LDL CALC 99 05/11/2025 Lab Results Component Value Date TSH 1.34 05/10/2025 No results found for: DIGOXIN LVL Lab Results Component Value Date HGBA1C 9.3 (H) 05/11/2025 No results found for: TROPONIN I , TROPONIN T , POC TROPONIN I , POC TROPONIN I. Lab Results Component Value Date BNP 736 (H) 05/10/2025 I have personally reviewed and analyzed the above laboratory results. These findings have been analyzed in the context of the patient's clinical presentation. Relevant Imaging Results / Cardiovascular Diagnostic Studies: Encounter Date: 05/10/25 ECG 12 lead Result Value Ventricular Rate 85 QRS DURATION 146 QT Interval 424 QTC CALCULATION(BAZETT) 504 R-[place] -56 T Wave [place] 106 Impression Atrial fibrillation Left axis deviation Left bundle branch block Abnormal ECG When compared with ECG of 16-MAY-2025 10:06, (unconfirmed) No significant change was found Confirmed by Kasandra DELAROSA, GERI Penn ([id number]) on 05/16/2025 4:16:44 PM ECG 12 lead Atrial fibrillation Left axis deviation Left bundle branch block Abnormal ECG When compared with ECG of 16-MAY-2025 10:06, (unconfirmed) No significant change was found Confirmed by Kasandra DELAROSA, GERI Penn ([id number]) on 05/16/2025 4:16:44 PM ECG 12 lead Atrial fibrillation with a competing junctional pacemaker with premature ventricular or aberrantly conducted complexes Left axis deviation Left bundle branch block Abnormal ECG When compared with ECG of 15-MAY-2025 14:37, No significant change was found Confirmed by Kasandra DELAROSA, GERI Penn ([id number]) on 05/16/2025 4:16:18 PM Limited Echo (TTE) w/wo Limited Doppler, Color Flow, Imaging Agent, Strain, 3D, Bubble Study 1 1 [facility] Heart Station [address] [place] [address] [phone] (fax) Echocardiogram-[facility] Name: NADIR BETH Study Date: 05/16/2025 10:05 AM B/P: 125 mmHg/44 mmHg HR: Date of : 1940 Location: [facility] Height: 71 in. Age: 85 year(s) Patient Room: 3184 Weight: 158 lb. Gender: Male Patient Status: InPt BSA: 1.91 m2 Indication: Aortic Valve Stenosis, S/P TAVR procedure;26 mm Le Moiz S3 Ultra Resilia valve Examination: Limited Echo/Limited Doppler, Color flow imaging Image Quality: Fair Patient Consent: Procedure explained to patient Conclusions Left Ventricle: The left ventricle appears normal in size. Global left ventricular systolic function is normal. The EF is 65 % visually. Left ventricular wall thickness is normal. No regional wall motion abnormality. Right Ventricle: The right ventricle appears normal in size. Right ventricular systolic function appears normal. Left Atrium: The left atrium appears enlarged. Right Atrium: The right atrium appears enlarged. Mitral Valve: Mild mitral regurgitation. Aortic Valve: The TAVR valve is well seated in the aortic position with normal Doppler flows. No prosthesis regurgitation. Aortic Valve Measurements AV PGmean: 5.00 mmHg. Tricuspid Valve: Moderate tricuspid regurgitation. Pericardium: There is a small to moderate pericardial effusion. Features are not consistent with tamponade physiology. Measurements Left Ventricle Label Value Normal Value LVOT VTI 21.9 cm (18cm - 22cm) LVOT PGmax 4 mmHg LVEF visual 65 % LVOT PGmean 2 mmHg Aortic Valve Label Value Normal Value AV DVI 0.64 AV VTI 28.7 cm Valvular Assessment LVOT 0.7 - 1.1 m/sec Aortic Valve 1.0 - 1.7 m/sec Mitral Valve 0.6 - 1.3 m/sec Tricuspid Valve 0.3 - 0.7 m/sec Pulmonic Valve 0.6 - 0.9 m/sec Regurgitation Mild Moderate Max Velocity 1.00 m/sec 1.57 m/s Max Gradient 10.00 mmHg Mean Gradient 5.00 mmHg Findings Left Ventricle: The left ventricle appears normal in size. Global left ventricular systolic function is normal. The EF is 65 % visually. Left ventricular wall thickness is normal. No regional wall motion abnormality. Right Ventricle: The right ventricle appears normal in size. Right ventricular systolic function appears normal. A pacemaker wire is seen in the right ventricle. Left Atrium: The left atrium appears enlarged. Right Atrium: The right atrium appears enlarged. Mitral Valve: There is nonspecific thickening of the mitral valve leaflet. Mild mitral annular calcification. Mild mitral regurgitation. Aortic Valve: The TAVR valve is well seated in the aortic position with normal Doppler flows. No prosthesis regurgitation. Aortic Valve Measurements AV PGmean: 5.00 mmHg. Tricuspid Valve: Normal tricuspid valve. Moderate tricuspid regurgitation. Pulmonic Valve: Pulmonary valve appears normal. Aorta: The aortic root exhibits normal size. Great Vessels: IVC: The inferior vena cava is poorly visualized. Pericardium: There is a small to moderate pericardial effusion. Features are not consistent with tamponade physiology. Procedure Staff Reading Group: [facility] National Sales Representative: Katelyn Martinez RDCS Ordering Physician: Shamar Nolan MD chest 1 view Narrative: XR CHEST 1 VIEW 05/16/2025 10:09 AM CLINICAL INDICATIONS: Shortness of breath COMPARISON: None FINDINGS: Right-sided electronic lead noted projected in the region of the right ventricle. Aortic valve replacement.. There is congested lungs particularly on the right with effusion and and poor definition of the lung base and the right hemidiaphragm. Similar changes on the left. Impression: Fluid overload. Evaluate position of the tip of the electronic lead which is thought to be positioned near the apex of the right ventricle. Electronically signed: Mark Melendez MD. TTE 05/10/2025: Left Ventricle: The left ventricle is normal size. Global left ventricular systolic function is difficult to assess due to rhythm but appears preserved. Left ventricular wall thickness is increased. Right Ventricle: The right ventricle is normal in size. Normal right ventricular systolic function. Doppler studies suggest severely elevated right sided pressures. Left Atrium: The left atrium is severely enlarged. Mitral Valve: Mild mitral regurgitation. Aortic Valve: Mild aortic valve regurgitation. Moderate to severe aortic stenosis. Overall Conclusions: Doppler velocities may be underestimated due to rhythm. I have personally reviewed and analyzed all available cardiac diagnostic tests and imaging reports.Findings have been analyzed in the context of the patient's clinical status. ASSESSMENT & PLAN #Aortic stenosis #Status post TAVR HERNANDEZ with stair climbing Severe aortic stenosis on 05/10/2025 TTE LHC/RHC 05/11/2025: Moderate CAD, PCWP 28 mmHg, normal cardiac index of 2.7. He was seen by CT surgery for aortic stenosis evaluation. He is not a current surgical candidate for aortic valve replacement Status post TAVR 05/15/25: Temporary pacer placed due to new LBBB. EKG still has LBBB. Echo shows good TAVR function, moderatepericardial effusion (he had at baseline also).Temporary pacer removed. Plan for limited TTE tomorrow to eval pericardial effusion. Discharge tomorrow with 30 day event monitor due to new LBBB. - Xarelto to be resumed #HFpEF NYHA II Appears euvolemic Compensated Weight today is 158 pounds ---> 178 pounds on admission 05/10/2025 I's and O's: Net -6 L since admission, net -174 cc overnight Most recent TTE 05/10/2025: Left ventricular systolic function appears preserved. Mild MR, moderate to severe aortic stenosis. Right heart cath 05/11/25: PCWP 28 mmHg (large V waves to 40 mmHg also noted, consistent with acute heart failure and/or mitral valve disease) Left heart cath 05/11/25: Moderate CAD Most recent labs reviewed, 05/15/2025: Sodium 137, potassium 4.5, creatinine 1.61, BUN 34, glucose 255, calcium 8.9, EGFR 41.4, WBC 12, hemoglobin 10.3, platelets 306 GDMT limited by CKD: - Continue Farxiga 10 mg daily - Furosemide now decreased to 40 mg daily from twice daily - Continue spironolactone 25 mg daily #Paroxysmal A-fib [id number] = 5 (HTN, age, HF, CVA) Denies palpitations 12-24 hour telemetry reviewed: a fib 97, 80-105, PVC 11 - Was transition to heparin gtt in anticipation of TAVR today #Elevated troponin Denies chest pain Mildly elevated troponin most likely secondary to chronic myocardial injury Troponin 21--> 26 last on 05/10/2025 #Hypertension urgency Stable - Continue clonidine 0.2 mg 3 times daily - Continue hydralazine 25 mg 3 times daily - Continue labetalol 300 mg 3 times daily - Continue spironolactone 25 mg daily #CAD Denies chest pain Moderate coronary artery disease on coronary angiogram 05/11/2025 - Continue aspirin 81 mg daily - Continue ezetimibe 10 mg daily #CVA Recent stroke #Renal artery stenosis Renal artery stenosis status post left renal artery stent 2014 #CKD Improved from yesterday 05/14 Most recent labs reviewed, 05/15/2025: Sodium 137, potassium 4.5, creatinine 1.61, BUN 34, glucose 255, calcium 8.9, EGFR 41.4, WBC 12, hemoglobin 10.3, platelets 306 05/14/2025: Sodium 136, potassium 3.8, BUN 34, creatinine 1.74, EGFR 37.7, glucose 186 Labs 05/13/2025: Sodium 138, potassium 3.5, BUN 32, creatinine 1.65, glucose 206, calcium 8.5, EGFR 40.2, WBC 10.1, hemoglobin 9.8, platelets 287 Most recent labs reviewed, 05/14/2025: Sodium 138, potassium 3.8, BUN 34, creatinine 1.74, glucose 186, calcium 8.4, EGFR #Hyperlipidemia Has statin allergy List recent lipid panel reviewed, 05/11/2025: LDL 99, HDL 69, triglycerides 93, total cholesterol 187 LDL target goal should be at least < 70, ideally < 55 per most recent guidelines - Consider PCKS9 inhibitor - Continue ezetimibe 10 mg daily Plan Overview: Resume Xarelto Transfer out of ICU Furosemide now 40 mg daily from twice daily ---> continue monitoring renal function, electrolytes Continue strict I&O monitoring and daily weights to guide volume management Discharge tomorrow with 30 day event monitor due to new LBBB. This note was partially composed using voice recognition software. While every effort was made to ensure accuracy, some unintentional telescope repairer errors may be present. [facility] [1] History reviewed. No pertinent past medical history. [2] History reviewed. No pertinent surgical history. [3] Social History Tobacco Use Smoking status: Former Types: Cigarettes Smokeless tobacco: Never [4] Allergies Allergen Reactions Aminolevulinic Acid Hcl Unknown Iodinated Contrast Media Unknown Nitroglycerin Other hypotension Simvastatin Unknown * Ricky Ferrari, BALWINDER - 05/16/2025 8:25 AM EDT Images from the original note were not included. Cardiothoracic Surgery Progress Note 05/16/2025 Room: [address] [place] [address] Nadir Beth is a 85 y.o. 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 He was evaluated in Cardiology and Cardiothoracic Surgery Clinics, and was deemed appropriatefor TAVR as treatment for his aortic valve stenosis. He is admitted with acute decompensated diastolic heart failure. 05/16/2025 s/p successful transcatheter aortic valve replacement using a 26 mm Le MOIZ 3 UltraRESILIA valve deployed at nominal volume +2 ml via percutaneous transfemoral access. Interval: Resting in bed appeared comfortable. Oriented to self. Denies chest pain or SOB. Objective Patient Vitals for the past 24 hrs: BP Temp Temp src Pulse Resp SpO2 Weight 05/16/25 0700 (!) 125/44 -- -- 81 13 95 % -- 05/16/25 0601 -- -- -- -- -- -- 71.8 kg (158 lb 4.6 oz) 05/16/25 0600 147/59 -- -- 80 15 93 % -- 05/16/25 0500 132/71 -- -- 87 16 92 % -- 05/16/25 0400 136/54 36.3 ??C (97.3 ??F) Temporal 89 13 94 % -- 05/16/25 0300 127/50 -- -- 83 16 94 % -- 05/16/25 0200 (!) 127/49 -- -- 90 19 97 % -- 05/16/25 0100 117/50 -- -- 83 17 96 % -- 05/16/25 0000 111/55 36.7 ??C (98.1 ??F) -- 83 14 94 % -- 05/15/25 2300 139/55 -- -- 97 16 95 % -- 05/15/25 2200 140/74 -- -- 95 20 93 % -- 05/15/25 2100 158/62 -- -- 86 19 99 % -- 05/15/25 2000 138/61 37.2 ??C (99 ??F) Temporal 84 14 99 % -- 05/15/25 1900 141/58 -- -- 87 14 97 % -- 05/15/25 1800 112/59 -- -- 89 13 98 % -- 05/15/25 1715 145/74 -- -- 94 15 93 % -- 05/15/25 1700 162/79 -- -- 103 12 97 % -- 05/15/25 1645 146/73 -- -- 94 12 98 % -- 05/15/25 1630 164/67 -- -- 99 14 100 % -- 05/15/25 1615 146/63 -- -- 90 13 99 % -- 05/15/25 1600 155/78 -- -- 97 14 98 % -- 05/15/25 1530 132/51 -- -- 86 15 100 % -- 05/15/25 1515 119/70 -- -- 88 13 95 % -- 05/15/25 1500 148/86 -- -- 88 14 96 % -- 05/15/25 1439 -- -- -- -- -- 98 % -- 05/15/25 1439 156/70 -- -- 95 16 98 % -- 05/15/25 1429 (!) 171/100 -- -- 97 17 98 % -- 05/15/25 1307 -- -- -- -- -- 98 % -- 05/15/25 1152 122/68 36.6 ??C (97.9 ??F) Temporal 98 15 96 % -- 05/15/25 0832 145/66 -- -- 94 18 96 % -- Physical Exam Vitals reviewed. Constitutional: General: He is not in acute distress. Appearance: Normal appearance. He is normal weight. He is not ill-appearing. HENT: Head: Normocephalic and atraumatic. Mouth/Throat: Mouth: Mucous membranes are moist. Pharynx: Oropharynx is clear. Eyes: Extraocular Movements: Extraocular movements intact. Conjunctiva/sclera: Conjunctivae normal. Pupils: Pupils are equal, round, and reactive to light. Neck: Vascular: No carotid bruit. Comments: Right internal jugular cordis with transvenous pacer. Cardiovascular: Rate and Rhythm: Normal rate and regular rhythm. Pulses: Normal pulses. Radial pulses are 2+ on the right side and 2+ on the left side. Dorsalis pedis pulses are 2+ on the left side. Posterior tibial pulses are 2+ on the right side and 2+ on the left side. Heart sounds: Normal heart sounds. No murmur heard. Pulmonary: Effort: Pulmonary effort is normal. No respiratory distress. Breath sounds: Normal breath sounds. Comments: RA Abdominal: General: Abdomen is flat. There is no distension. Palpations: Abdomen is soft. Musculoskeletal: General: Normal range of motion. Cervical back: Normal range of motion. Right lower leg: No edema. Left lower leg: No edema. Skin: General: Skin is warm and dry. Capillary Refill: Capillary refill takes less than 2 seconds. Coloration: Skin is not pale. Comments: Bilateral groin sites intact, no drainage. Occlusive dressing in place. No hematoma. Neurological: General: No focal deficit present. Mental Status: He is alert and oriented to person, place, and time. Mental status is at baseline. Psychiatric: Mood and Affect: Mood normal. Behavior: Behavior normal. Thought Content: Thought content normal. Judgment: Judgment normal. Lab Results Component Value Date NA 140 05/16/2025 K 4.2 05/16/2025 CL 103 05/16/2025 ANIONGAP 19 05/16/2025 BUN 41 (H) 05/16/2025 CREATININE 1.71 (H) 05/16/2025 CALCIUM 8.6 05/16/2025 MG 2.0 05/10/2025 Lab Results Component Value Date BILITOT 0.4 05/10/2025 ALKPHOS 72 05/10/2025 AST 14 05/10/2025 ALT 7 05/10/2025 PROT 6.2 05/10/2025 ALBUMIN 3.5 05/10/2025 Lab Results Component Value Date WBC 14.93 (H) 05/16/2025 RBC 3.94 (L) 05/16/2025 HGB 10.0 (L) 05/16/2025 HCT 33.1 (L) 05/16/2025 PLT 306 05/16/2025 NRBC 0.0 05/10/2025 Transthoracic echo (TTE) limited Result Date: 05/15/2025 1 1 [facility] Heart Station [address] [place] [address] [phone] (fax) Echocardiogram-[facility] Name: NADIR BETH Study Date: 05/15/2025 12:46 PM B/P: 171 mmHg/100 mmHg HR: 87 bpm Date of : 1940 Location: [facility] Height: 72 in. Age: 85 year(s) Patient Room: 312 Weight: 163 lb. Gender: Male Patient Status: InPt BSA: 1.95 m2 Indication: Aortic stenosis, TAVR procedure Examination: Limited Echo/LimitedDoppler, Color flow imaging Image Quality: Fair Patient Consent: Procedure explained to patient Conclusions Left Ventricle: The left ventricle is normal size. Global left ventricular systolic function is normal. The EF is 70 % visually. Left ventricular wall thickness is mildly increased. Right Ventricle: The right ventricle is normal in size. Normal right ventricular systolic function. Left Atrium: The left atrium is severely enlarged. Right Atrium: The right atrium is severely enlarged. Aortic Valve: Pre TAVR: Severe aortic valve calcification is present. No aortic valve regurgitation. Severe aortic valve stenosis. Post TAVR: mean PG 3 mmHg, no valvular or paravalvular insufficiency Pericardium: There is a small pericardial effusion noted prior to TAVR and remained the same post procedure. A left pleural effusion is seen. Overall Conclusions: POST TAVR procedure the mean gradient is 3mmHg with no residual insufficiency. Measurements Left Ventricle Label Value Normal Value LVOT VTI 20.6 cm (18cm - 22cm) LVOT PGmax 4 mmHg LVEF visual 70 % LVDd, 2D 4.87 cm (4.2cm - 5.9cm) IVSd, 2D 0.96 cm (0.6cm - 1.1cm) LVPWd, 2D 1 cm (0.6cm - 1cm) LV Mass, 2D ASE 169.59 g LV Mass Index, 2D ASE 87 g/m?? (50g/m?? - 102.4g/m??) RWT, MM 0.41 (0 - 0.42) LVOT PGmean 3 mmHg Aortic Valve Label Value Normal Value AV DVI 0.29 AV VTI 69.2 cm Great Vessels Label Value Normal Value IVC 2.29 cm (1.2cm - 2.3cm) Valvular Assessment LVOT 0.7 - 1.1 m/sec Aortic Valve 1.0 - 1.7 m/sec Mitral Valve 0.6 - 1.3 m/sec Tricuspid Valve 0.3 - 0.7 m/sec Pulmonic Valve 0.6 - 0.9 m/sec Regurgitation No Stenosis Severe Max Velocity 0.94 m/sec 3.26 m/s Max Gradient 43.00 mmHg Mean Gradient 26.00 mmHg Findings Left Ventricle: The left ventricle is normal size. Global left ventricular systolic function is normal. The EF is 70 % visually. Left ventricular wall thickness is mildly increased. Right Ventricle: The right v entricle is normal in size. Normal right ventricular systolic function. Left Atrium: The left atrium is severely enlarged. Right Atrium: The right atrium is severely enlarged. Mitral Valve: There is nonspecific thickening of the mitral valve leaflet. There is mild mitral annular calcification. Aortic Valve: Pre TAVR: Severe aortic valve calcification is present. No aortic valve regurgitation. Severe aortic valve stenosis. Post TAVR: mean PG 3 mmHg, no valvular or paravalvular insufficiency Tricuspid Valve: Normal tricuspid valve. Pulmonic Valve: Pulmonary valve not well visualized. Great Vessels: IVC: The IVC is mildly dilated. Pericardium: There is a small pericardial effusion noted prior to TAVR and remained the same post procedure. A left pleural effusion is seen. Procedure Staff Reading Group: [facility] National Sales Representative: SEAN Bailey, RDCS Ordering Physician: PROMISE PELAEZ Complete Echo (TTE) w/wo Imaging Agent, Strain, 3D, Bubble Study Result Date: 05/10/2025 1 1 [facility] Heart Station [address] [place] [address] [phone] (fax) Echocardiogram-[facility] Name: NADIR BETH Study Date: 05/10/2025 09:19 AM B/P: 178 mmHg/92 mmHg HR: 104 bpm Date of : 1940 Location: [facility] Height: 72 in. Age: 85 year(s) Patient Room: 3122 Weight: 178 lb. Gender: Male Patient Status: InPt BSA: 2.03 m2 Indication: elevated troponins, dyspnea, ckd, Pericardial Effusion, Atrial Fibrillation Examination: Echocardiogram (Complete) Image Quality: Fair Patient Consent: Procedure explained to patient Conclusions Left Ventricle: The left ventricle is normal size. Global left ventricular systolic function is difficult to assess due to rhythm but appears preserved. Left ventricular wall thickness is increased. Right Ventricle: The right ventricle is normal in size. Normal right ventricular systolic function. Doppler studies suggest severely elevated right sided pressures. Left Atrium: The left atrium is severely enlarged. Mitral Valve: Mild mitral regurgitation. Aortic Valve: Mild aortic valve regurgitation. Moderate to severe aortic stenosis. Overall Conclusions: Doppler velocities may be underestimated due to rhythm. Measurements Left Ventricle Label Value Normal Value LVOTd 1.9 cm (19cm - 21cm) LVOT VTI 21 cm (18cm - 22cm) LVOT PGmax 3 mmHg LVDd, 2D 4.84 cm (4.2cm - 5.9cm) LVDs, 2D 3.74 cm (2.1cm - 4cm) IVSd, 2D 1.27 cm (0.6cm - 1.1cm) LVPWd, 2D 1.16 cm (0.6cm - 1cm) LV Mass, 2D ASE 225.96 g LV Mass Index, 2D ASE 111.3 g/m?? (50g/m?? - 102.4g/m??) RWT, MM 0.48 (0 - 0.42) LVSVI, 2D 24.6 ml/m2 LVOT PGmean 2 mmHg LVSV_LVOT 60 ml Right Ventricle Label Value Normal Value RVDd, 2D 4.14 cm (1.9cm - 3.8cm) TAPSE 1.47 cm Left Atrium Label Value Normal Value LA Volume, B P 134 ml (18ml - 58ml) LAESV index, BP 66 ml/m?? Right Atrium Label Value Normal Value RA Area 30.6cm?? Aortic Valve Label Value Normal Value AV DVI 0.29 AV VTI 61.5 cm Mitral Valve Label Value Normal Value MV E Vmax 1.1 m/s MV E/E' lateral 14.6 MV E' lateral 0.08 m/s Tricuspid Valve Label Value Normal Value RA Pressure 3 mmHg RVSP 73 mmHg Aorta Label Value Normal Value AoRoot, 2D 3.99 cm (1.4cm- 3.8cm) Great Vessels Label Value Normal Value IVC 2 cm (1.2cm - 2.3cm) Valvular Assessment LVOT 0.7 - 1.1 m/sec Aortic Valve 1.0 - 1.7 m/sec Mitral Valve 0.6 - 1.3 m/sec Tricuspid Valve 0.3 - 0.7 m/sec Pulmonic Valve 0.6 - 0.9 m/sec Regurgitation Mild Mild Mild No Stenosis ModS No No No Max Velocity 0.90 m/sec 3.06 m/s 1.10 m/sec 0.95 m/s Max Gradient 37.00 mmHg 4.00 mmHg Mean Gradient 20.00 mmHg Valve Area 0.8 cm?? Findings Left Ventricle: The left ventricle is normal size. Global left ventricular systolic function is difficult to assess due to rhythm but appears preserved. Left ventricular wall thickness is increased. Right Ventricle: The right ventricle is normal in size. Normal right ventricular systolic function. Doppler studies suggest severely elevated right sided pressures. LeftAtrium: The left atrium is severely enlarged. Right Atrium: The right atrium is severely enlarged. Mitral Valve: There is nonspecific thickening of the mitral valve leaflet. Mild mitral regurgitation. No mitral valve stenosis. There is mild to moderate mitral annular calcification. Aortic Valve: Severe aortic valve calcification is present. Mild aortic valve regurgitation. Moderate to severe aortic stenosis. Tricuspid Valve: Normal tricuspid valve. Mild tricuspid regurgitation. No tricuspid valve stenosis. Pulmonic Valve: Normal pulmonary valve. No pulmonary regurgitation. No pulmonic valve stenosis. Aorta: The aortic root exhibits mild dilatation. Great Vessels: IVC: The IVC is normal in size. Respiratory inspiration greater than 50%. Pericardium: There is a small pericardial effusion. Aleft pleural effusion is seen. Procedure Staff Reading Group: [facility] National Sales Representative: Bianca Armendariz BS, RDCS Ordering Physician: ESTUARDO REED Electronically signed by MD Geri Delarosa 05/10/2025 at 10:24 AM Assessment/Plan Principal Problem: Chest pain Active Problems: Primary hypertension Acute congestive heart failure (CMS/HCC) History of CVA (cerebrovascular accident) Type 2 diabetes mellitus, with long-term current use of insulin (CMS/HCC) Other hyperlipidemia Chronic atrial fibrillation (CMS/HCC) Chronic kidney disease Elevated troponin S/P TAVR (transcatheter aortic valve replacement) Aortic stenosis, severe Angina pectoris, unstable (CMS/HCC) Nonrheumatic aortic valve stenosis 85 y.o male with severe symptomatic stage D3 non-rheumatic aortic valve stenosis, 05/16/2025 s/p successful transcatheter aortic valve replacement using a 26 mm Le MOIZ 3 Ultra RESILIA valve deployed at nominal volume +2 ml via percutaneous transfemoral access. Plan: -Echocardiogram pending this morning, will follow with the results. Clinically patient appears to be doing well. Remains on heparin infusion. Still has trans venous pacer in place. -Medical management per cardiology team. -No further follow-up with CT Surgery is needed. To reach Cardiothoracic Surgery Inpatient from 8am-4pm call Ascom #[phone]. Only use [employer] chat for general questions. If unable to reach Ascom Number call hospital stave log cut off saw operator for Cardiothoracic Provider [employer]. Cardiothoracic Surgery outpatient Office Number [phone]. Cardiothoracic Surgery outpatient . Cosigned by Negro Lopez MD at 05/16/2025 3:40 PM EDT * Mulu Daly PTA - 05/15/2025 3:24 PM EDT Name: Nadir Beth Date of : 1940 Today's Date: 05/15/25 Pt is unable to be seen for Physical Therapy at this time secondary to: per RN, pt currently off floor for TAVR. Will check back and complete therapy session as appropriate. Check No Charge Time attempted: 5 Cosigned by Connie Dela Cruz PT at 05/17/2025 9:47 AM EDT * DEBRA Butler - 05/15/2025 3:01 PM EDT Occupational Therapy Name: Nadir Beth Date of : 1940 Today's Date: 05/15/25 Pt is unable to be seen for therapy at this time secondary to Pt is off unit for TAVR. Will check back and complete therapy session as appropriate. Check No Charge Time attempted: 1501 Cosigned by Erin Karimi OT at 05/15/2025 4:10 PM EDT * Julio Cesar Medina MD - 05/15/2025 1:08 PM EDT Images from the original note were not included. [facility] Medicine Daily Progress Note - 05/15/2025 1:08 PM; Room: [address] [place] [address] Admission: 05/10/2025 2:37 AM; Length of stay: 5 days THE HOSPITALIST TEAM PREFERS TO USE [employer] FOR NON-URGENT COMMUNICATION 7AM- 7PM. IF I DO NOT RESPOND WITHIN 20 MINUTES OR URGENT MATTERS, PLEASE CALL THROUGH THE [facility] [employer]. FROM 7PM-7AM, PLEASE PAGE [phone](COVR). Code Status: Full Code Barriers to Discharge: Possible TAVR inpatient Expected Discharge Date: 1-2 days Discharge Destination: home Overview Patient is seen for evaluation and management of CHF and mild troponin elevations. Subjective Seen today in his room, alert and in no acute distress. Denies significant chest pain or shortness of breath Physical Exam Cardiovascular: Rate and Rhythm: Normal rate. Rhythm irregular. Pulses: Normal pulses. Heart sounds: Murmur can be heard in the right sternal border Pulmonary: Effort: Pulmonary effort is normal. Breath sounds: Normal breath sounds. Abdominal: General: Abdomen is flat. Palpations: Abdomen is soft. Musculoskeletal: Right lower leg: No edema. Left lower leg: No edema. Neurological: General: No focal deficit present. Visit Vitals BP 122/68 Pulse 98 Temp 36.6 ??C (97.9 ??F) (Temporal) Resp 15 Intake/Output Summary (Last 24 hours) at 05/15/2025 1308 Last data filed at 05/15/2025 0512 Gross per 24 hour Intake 480 ml Output 600 ml Net -120 ml Estimated body mass index is 22.13 kg/m?? as calculated from the following: Height as of this encounter: 1.828 m (5' 11.97 ). Weight as of this encounter: 73.9 kg (163 lb). Assessment and Plan Assessment & Plan Primary hypertension Continue current clonidine 0.2/3 times daily, hydralazine 25/ 3 times daily and labetalol Acute congestive heart failure ([facility]) Acute on chronic heart failure with preserved EF BNP of 736 Echo 05/10 showed EF preserved. Moderate AAS and AR, mild MR and TR Cardiac cath was done on 05/11: Moderate coronary artery disease and wedge pressure of 28 with cardiac output of 5.4 L/min cardiac index of 2.7 L/min/m?? Echo was done and showed EF appear preserved. Moderate to severe aortic stenosis Lasix 40 IV every 8 hours, likely to be switched to p.o. today Continue goal-directed medical therapy Farxiga, labetalol, Aldactone Farxiga and Aldactone were added. Patient also on labetalol Patient was evaluated by cardiothoracic team felt that patient undergo TAVR with possible PCI to LAD. Plan for TAVR today by interventional cardiology She is too high risk for CABG/AVR specially with history of CVA History of CVA (cerebrovascular accident) On aspirin and Zetia Type 2 diabetes mellitus, with long-term current use of insulin ([facility]) Continue sliding scale insulin A1c came back of 9.3 Other hyperlipidemia Continue Zetia Chronic atrial fibrillation ([facility]) CHADS2 DS vascular score is 7 currently on Xarelto Patient already on labetalol Chronic kidney disease Not sure baseline kidney function, creatinine today 1.61 Will decrease Lasix to 40 mg daily Elevated troponin Highest troponin went up to 26 Likely combination of chronic kidney disease and CHF History of recent CVA about 4 months ago History of renal artery stenosis status post left renal artery stent in 2014 VTE Prophylaxis: On Xarelto Scheduled Meds aspirin, 81 mg, oral, Daily cholecalciferol, 1,000 Units, oral, Daily cloNIDine, 0.2 mg, oral, TID dapagliflozin propanediol, 10 mg, oral, Daily ezetimibe, 10 mg, oral, Daily furosemide, 40 mg, oral, Daily hydrALAZINE, 25 mg, oral, TID insulin lispro, 0-10 Units, subcutaneous, TID with meals And insulin lispro, 0-8 Units, subcutaneous, Nightly labetalol, 300 mg, oral, TID mometasone-formoterol, 2 puff, inhalation, BID prednisoLONE acetate, 1 drop, Right Eye, BID primidone, 50 mg, oral, BID [Held by provider] rivaroxaban, 20 mg, oral, Daily with evening meal spironolactone, 25 mg, oral, Daily tamsulosin, 0.4 mg, oral, Daily with evening meal umeclidinium, 1 puff, inhalation, Daily heparin, 0-28 Units/kg/hr, Last Rate: 18 Units/kg/hr (05/15/25 0442) Pertinent Investigations Hematology: Results from last 7 days Lab Units 05/15/25 0339 05/14/25 1528 05/13/25 0343 WBC AUTO 10*3/uL 12.04* -- 10.18 HEMOGLOBIN g/dL 10.3* -- 9.8* HEMATOCRIT % 33.6* -- 31.3* MCV fL 82.4 -- 82.4 PLATELETS AUTO 10*3/uL 306 297 287 Chemistry: Results from last 7 days Lab Units 05/15/25 03305/14/25 0338 05/13/25 0343 05/11/25 0427 05/10/25 0454 SODIUM mmol/L 137 138 138 < > 139 POTASSIUM mmol/L 4.5 3.8 3.5 < > 3.6 CHLORIDE mmol/L 99 100 99 < > 101 CO2 mmol/L 27 29 29 < > 26 BUN mg/dL 34* 34* 32* < > 28* CREATININE mg/dL 1.61* 1.74* 1.65* < > 1.45* GLUCOSE mg/dL 255* 186* 206* < > 156* MAGNESIUM mg/dL -- -- -- -- 2.0 CALCIUM mg/dL 8.9 8.4* 8.5* < > 8.5* < > = values in this interval not displayed. Results from last 7 days Lab Units 05/10/25 0454 AST U/L 14 ALT U/L 7 ALK PHOS U/L 72 BILIRUBIN TOTAL mg/dL 0.4 Results from last 7 days Lab Units 05/15/25 1123 05/15/25 0755 05/14/25201805/14/25 1656 05/14/25 1213 05/14/25 0705 POCT GLUCOSE mg/dL 288* 351* 303* 254* 225* 209* Historical Values: (Includes values prior to this admission) Lab Results Component Value Date TSH 1.34 05/10/2025 HDL 69 05/11/2025 LDL 118 05/11/2025 No results found for: [id number] , IRON , TIBC , C3 , C4 , SHERRY , CANCA , ASO , PSA , CEA , CA125 , CA199 , AFP , CA153 Imaging Cardiac catheterization PROCEDURE PHYSICIAN: Shamar Nolan MD Clinical Presentation: 85 y.o. Male with history of A-fib on Xarelto, hypertension, HFpEF, CKD, recent history of CVA 4 months ago, renal artery stenosis transferred from [facility] for acute on chronic HFpEF and aortic stenosis. He presents for coronary angiogram and heart catheterization as part of the pre-TAVR workup. Final Impression: 1) coronary angiogram revealed moderate CAD 2) Echo showed severely decompensated heart failure with mean wedge pressure of 28 mmHg Plan: 1) optimal med therapy for CAD and HFpEF 2) further diuresis and optimization of HFpEF med therapy as tolerated Procedures Performed: coronary angiogram, right heart catheterization, conscious sedation 34 min, ultrasound guidance for vascular access Procedure Description: The patient was brought to the cardiac catheterization lab in a fasting state. Informed written consent was obtained. he was prepped and draped in usual sterile fashion over the left wrist and right neck and bilateral groins. Time-out was performed. he was given Versed and fentanyl for sedation. 1% lidocaine was infiltrated over the right internal jugular vein. Using ultrasound guidance and a micropuncture access technique a 6 Moldovan sheath was placed in the right internal jugular vein. The Garza catheter was advanced under fluoroscopic and hemodynamic monitoring to the right atrium. Pressure obtained of the right atrium, right ventricle, pulmonary artery, pulmonary capillary position. Oxygen saturation drawn for the pulmonary artery and Mary cardiac with a cardiac index were calculated. 1% lidocaine was infiltrated over the left radial artery. A 6-Moldovan Terumo Glidesheath slender was placed in left radial artery. Radial anti-vasospasm cocktail of verapamil 1.25 mg and nitroglycerin 100 mcg was administered through the sheath. All catheter exchanges were made over the Hendricks guidewire. Coronary angiogram was performed with a JL4 to engage the left main and a JR4 to engage the RCA. Coronary angiogram was performed in multiple orthogonal views. All catheters and wires were removed. The left radial sheath was removed and a TR band was applied to obtain hemostasis. The right internal jugular venous sheath was also removed and manual pressure applied for hemostasis. Specimens Removed: None Complications: None Hemodynamic Data: RA: 12 mmHg RV: 62/30 mmHg PA: 64/20 (41) mmHg PCWP: 28 mmHg (large V waves to 40 mmHg also noted, consistent with acute heart failure and/or mitral valve disease) AO: 133/55 (MAP 85) mmHg CO: 5.4 L/min CI: 2.7 L/min/m2 O2 Sat: PA sat: 64% AO sat: 99% Coronary Angiogram: Left main: The left main is a large vessel and is. Mid left main is 20% stenosis. The distal left main splits into 4 different branches including the LAD, ramus, and a high OM1 and a circumflex LAD: the ostial LAD has 30% stenosis. The mid LAD has a 50% stenosis. The remainder the LAD and diagonal branches are patent with luminal irregularities. RAMUS: patent with luminal irregularities LCX: The left circumflex is a moderate caliber vessel. The proximal to mid left circumflex is a diffuse 40% stenosis. The remainder of the circumflex is patent with luminal irregularities. RCA: The RCA is a large vessel and is dominant. The proximal RCA has 30% stenosis. Remainder the RCA is luminal irregularities but is otherwise patent. The right PDA and FELIPE are both patent. XR transfer of outside films This order has been auto-finalized and does not contain a result. CT transfer of outside films This order has been auto-finalized and does not contain a result. Vascular US carotid artery duplex bilateral Narrative: Procedure: The carotid arteries, including common carotid, internal and external carotidartery were evaluated bilaterally. This was done using real- time imaging with velocity measurement,color Doppler, and spectral analysis. The vertebral arteries were evaluated bilaterally using colorultrasound and velocity measurement. Procedure: The carotid arteries, including common carotid, internal and external carotid artery were evaluated bilaterally. This was done using real-time imaging with velocity measurement, color Doppler, and spectral analysis. The vertebral arteries were evaluated bilaterally using color ultrasoundand velocity measurement. Impression: Right: Homogeneous smooth plaque with no significant ICA spectral Doppler or color flowdisturbances: ICA 80/3 cm/sec; consistent with <50% diameter reduction. Antegrade vertebral artery flow. Left: Homogeneous smooth plaque with no significant ICA spectral Doppler or color flow disturbances: ICA 80/23 cm/sec; consistent with <50% diameter reduction. Antegrade vertebral artery flow. Right: Homogeneous smooth plaque with no significant ICA spectral Doppler or color flow disturbances: ICA 80/3 cm/sec; consistent with <50% diameter reduction. Antegrade vertebral artery flow. Left: Homogeneous smooth plaque with no significant ICA spectral Doppler or color flow disturbances: ICA 80/23 cm/sec; consistent with <50% diameter reduction. Antegrade vertebral artery flow. Conclusions: Antegrade flow of bilateral vertebral arteries. High resistance to flow in both vertebral arteries. <50% stenosis in right internal carotid artery. <50% stenosis in left internal carotid artery. Discharge Planning Expected Discharge Disposition: Longterm Facility (03) PT Discharge Recommendations: Patient is able to return to prior living environment (presents from SNF) OT Discharge Recommendations: Patient is able to return to prior living environment Signed Julio Cesar Medina MD [facility] 05/15/2025 1:08 PM * Ruy Amanda CNP - 05/15/2025 9:45 AM EDT Images from the original note were not included. Cardiology Inpatient Progress Note Subjective Reason for consult: Acute on chronic HFpEF, hypertension urgency, TAVR. HPI: Nadir Beth is a 85 y.o. year old male with significant medical history of A-fib on Xarelto, hypertension, HFpEF, CKD, recent history of CVA 4 months back, renal artery stenosis transferred from [facility] for acute on chronic heart failure. Patient had history of stroke 4 months back and was in rehab patient has been having progressive lower extremity edema for few days. Patient was advised to increase his Lasix from 20 to 40 mg and blood work was done which showed BNP 6214 and was advised to go to the ED. In [place] ED chest x-ray showed pulmonary vascular congestion with right-sided pleural effusion and EKG showed A-fib, patient was found to be hypertensive with blood pressure 190/68. Patient follows up with Dr. Bland who had scheduled right heart cath on 05/10/2025. Echo done today showed unable to obtain EF secondary to rhythm however it was preserved, severe RA and LA enlargement, moderate to severe , AR, mild MR and TR. 05/15/2025: Patient seen evaluated bedside today, he is accompanied by his family. No events overnight. He denies chest pain, shortness of breath, palpitations, lightheadedness dizziness, lower extreme edema. Remains in stable condition. Plan for TAVR today. 12-24 hour telemetry reviewed: A fib, 64-92 bpm. 05/14/2025: Patient seen evaluated bedside today. He appears in no acute distress, denies chest pain, shortnessof breath, palpitations, lightheaded dizziness, or lower extremity edema. Tentative plan for TAVR tomorrow pending scheduling 12-24 hour telemetry reviewed: A fib, average 71 bpm. 05/13/2025: Patient seen and evaluated at the bedside today, he is accompanied by his bedside nurse. Currently eating breakfast, appears in no acute distress, awake and alert. He remains on room air saturating 94 to 95%. Reportedly confused overnight. Blood pressure noted to be elevated in the 150's systolic, however he has not received morning antihypertensive medications yet. Otherwise, he denies chest pain, shortness of breath, palpitations, lightheaded or dizziness, or lower extremity edema. Plan to transition from IV Lasix to p.o. Plan to ambulate today. 12-24 hour telemetry reviewed: A fib 72-100 bpm. PAST MEDICAL HISTORY: Medical History[1] PAST SURGICAL HISTORY: Surgical History[2] FAMILY HISTORY: family history is not on file. SOCIAL HISTORY: Social History[3] REVIEW OF SYSTEMS: General: Denies fever, chills, fatigue, weight loss, or malaise. HENT: Head: Denies headache or dizziness. Eyes: Denies vision changes. Nose: Denies nasal congestion, discharge, or epistaxis. Throat: Denies pain or difficulty swallowing. Pulmonary: Denies shortness of breath, cough, wheezing, or hemoptysis. Cardiovascular: Denies chest pain, palpitations, dizziness, or syncope. Peripheral Vascular: Denies leg swelling, cold extremities or claudication. Abdomen: Denies abdominal pain, nausea, vomiting, diarrhea, constipation, or bloating. No changes in appetite. Neurological: Denies headaches, weakness, numbness, tingling, or difficulty with coordination. Skin: Denies rashes, lesions, or itching. ALLERGIES: Allergies[4] Objective 12-24 hour telemetry reviewed: A fib, 64-92 bpm. CURRENT MEDS: aspirin, 81 mg, oral, Daily cholecalciferol, 1,000 Units, oral, Daily cloNIDine, 0.2 mg, oral, TID dapagliflozin propanediol, 10 mg, oral, Daily ezetimibe, 10 mg, oral, Daily furosemide, 40 mg, oral, Daily hydrALAZINE, 25 mg, oral, TID insulin lispro, 0-10 Units, subcutaneous, TID with meals And insulin lispro, 0-8 Units, subcutaneous, Nightly labetalol, 300 mg, oral, TID mometasone-formoterol, 2 puff, inhalation, BID prednisoLONE acetate, 1 drop, Right Eye, BID primidone, 50 mg, oral, BID [Held by provider] rivaroxaban, 20 mg, oral, Daily with evening meal spironolactone, 25 mg, oral, Daily tamsulosin, 0.4 mg, oral, Daily with evening meal umeclidinium, 1 puff, inhalation, Daily heparin, 0-28 Units/kg/hr, Last Rate: 18 Units/kg/hr (05/15/25 0442) PRN medications: acetaminophen, glucose OR dextrose 50 % in water (D50W), melatonin, polyethylene glycol Patient Vitals for the past 24 hrs: BP Temp Temp src Pulse Resp SpO2 Weight 05/15/25 0832 145/66 -- -- 94 18 96 % -- 05/15/25 0712 161/71 36.4 ??C (97.5 ??F) Temporal 92 23 97 % -- 05/15/25 0512 -- -- -- -- -- -- 73.9 kg (163 lb) 05/15/25 0406 154/82 -- -- 84 14 94 % -- 05/14/259 127/50 -- -- 66 -- -- -- 05/14/251999 110/84 -- -- 68 -- -- -- 05/14/25 1600 159/61 36.4 ??C (97.5 ??F) Temporal 77 22 96 % -- 05/14/25 1539 149/72 -- -- 71 -- -- -- 05/14/25 1132 147/52 36.6 ??C (97.9 ??F) Temporal 76 13 97 % -- BP 145/66 Pulse 94 Temp 36.4 ??C (97.5 ??F) (Temporal) Resp 18 Ht 1.828 m (5' 11.97 ) Wt 73.9 kg (163 lb) SpO2 96% BMI 22.13 kg/m?? Wt Readings from Last 3 Encounters: 05/15/25 73.9 kg (163 lb) PHYSICAL EXAM: General: Alert and oriented, Appears comfortable in no acute distress. HENT: Head: Normocephalic, atraumatic. Eyes: Conjunctiva clear, sclera anicteric. No periorbital edema. Nose: No nasal congestion or discharge. Throat: Mucous membranes moist and pink. Neck: Supple, no lymphadenopathy. No bruits. No jugular venous distension (JVD) at 45??. Pulmonary: Symmetrical chest rise, no accessory muscle use. Clear to auscultation bilaterally. No wheezes, rales, or rhonchi. No tenderness. Cardiovascular: RUSB murmur. Peripheral Vascular: Pulses (radial, dorsalis pedis, posterior tibial) 2+ bilaterally and symmetrical. No edema, cyanosis, or clubbing. Capillary refill <2 seconds. Abdomen: Flat, no visible pulsations or distension. Bowel sounds normoactive in all quadrants. Soft, non-tender, no masses or hepatosplenomegaly. Extremities: No cyanosis, clubbing, or edema. Warm to touch, full range of motion. No tenderness. Neurological: Alert and oriented to person, place, and time. Normal sensation in all extremities. Skin: Warm, dry, and intact. No rashes, lesions, pallor, or cyanosis. Capillary refill <2 seconds. No diaphoresis or ecchymosis. Relevant Lab Results: Lab Results Component Value Date WBC 12.04 (H) 05/15/2025 HGB 10.3 (L) 05/15/2025 HCT 33.6 (L) 05/15/2025 MCV 82.4 05/15/2025 PLT 306 05/15/2025 Lab Results Component Value Date NA 137 05/15/2025 K 4.5 05/15/2025 CL 99 05/15/2025 ANIONGAP 16 05/15/2025 BUN 34 (H) 05/15/2025 CREATININE 1.61 (H) 05/15/2025 CALCIUM 8.9 05/15/2025 MG 2.0 05/10/2025 Lab Results Component Value Date BILITOT 0.4 05/10/2025 ALKPHOS 72 05/10/2025 AST 14 05/10/2025 ALT 7 05/10/2025 PROT 6.2 05/10/2025 ALBUMIN 3.5 05/10/2025 Lab Results Component Value Date CHOLESTEROL 187 05/11/2025 TRIGLYCERIDES 93 05/11/2025 HDL 69 05/11/2025 LDL CALC 99 05/11/2025 Lab Results Component Value Date TSH 1.34 05/10/2025 No results found for: DIGOXIN LVL Lab Results Component Value Date HGBA1C 9.3 (H) 05/11/2025 No results found for: TROPONIN I , TROPONIN T , POC TROPONIN I , POC TROPONIN I. Lab Results Component Value Date BNP 736 (H) 05/10/2025 I have personally reviewed and analyzed the above laboratory results. These findings have been analyzed in the context of the patient's clinical presentation. Relevant Imaging Results / Cardiovascular Diagnostic Studies: Encounter Date: 05/10/25 ECG 12 lead Result Value Ventricular Rate 67 QRS DURATION 102 QT Interval 414 QTC CALCULATION(BAZETT) 437 R-[place] -30 T Wave [place] 28 Impression Atrial fibrillation Left axis deviation Minimal voltage criteria for LVH, may be normal variant ( Gregorio product ) Anterior infarct , age undetermined Abnormal ECG No previous ECGs available XR transfer of outside films This order has been auto-finalized and does not contain a result. CT transfer of outside films This order has been auto-finalized and does not contain a result. Vascular US carotid artery duplex bilateral Narrative: Procedure: The carotid arteries, including common carotid, internal and external carotidartery were evaluated bilaterally. This was done using real- time imaging with velocity measurement,color Doppler, and spectral analysis. The vertebral arteries were evaluated bilaterally using colorultrasound and velocity measurement. Procedure: The carotid arteries, including common carotid, internal and external carotid artery were evaluated bilaterally. This was done using real-time imaging with velocity measurement, color Doppler, and spectral analysis. The vertebral arteries were evaluated bilaterally using color ultrasoundand velocity measurement. Impression: Right: Homogeneous smooth plaque with no significant ICA spectral Doppler or color flowdisturbances: ICA 80/3 cm/sec; consistent with <50% diameter reduction. Antegrade vertebral artery flow. Left: Homogeneous smooth plaque with no significant ICA spectral Doppler or color flow disturbances: ICA 80/23 cm/sec; consistent with <50% diameter reduction. Antegrade vertebral artery flow. Right: Homogeneous smooth plaque with no significant ICA spectral Doppler or color flow disturbances: ICA 80/3 cm/sec; consistent with <50% diameter reduction. Antegrade vertebral artery flow. Left: Homogeneous smooth plaque with no significant ICA spectral Doppler or color flow disturbances: ICA 80/23 cm/sec; consistent with <50% diameter reduction. Antegrade vertebral artery flow. Conclusions: Antegrade flow of bilateral vertebral arteries. High resistance to flow in both vertebral arteries. <50% stenosis in right internal carotid artery. <50% stenosis in left internal carotid artery. TTE 05/10/2025: Left Ventricle: The left ventricle is normal size. Global left ventricular systolic function is difficult to assess due to rhythm but appears preserved. Left ventricular wall thickness is increased. Right Ventricle: The right ventricle is normal in size. Normal right ventricular systolic function. Doppler studies suggest severely elevated right sided pressures. Left Atrium: The left atrium is severely enlarged. Mitral Valve: Mild mitral regurgitation. Aortic Valve: Mild aortic valve regurgitation. Moderate to severe aortic stenosis. Overall Conclusions: Doppler velocities may be underestimated due to rhythm. I have personally reviewed and analyzed all available cardiac diagnostic tests and imaging reports.Findings have been analyzed in the context of the patient's clinical status. ASSESSMENT & PLAN #Aortic stenosis Reports HERNANDEZ with stair climbing. Severe aortic stenosis on 05/10/2025 TTE LHC/RHC 05/11/2025: Moderate CAD, PCWP 28 mmHg, normal cardiac index of 2.7. He was seen by CT surgery for aortic stenosis evaluation. He is not a current surgical candidate for aortic valve replacement and CT surgery recommends TAVR. This will be done outpatient. - Plan for TAVR today---> n.p.o. - Xarelto on hold; heparin gtt in anticipation for TAVR today #HFpEF NYHA II Appears euvolemic Compensated Weight today is 163 pounds ---> 178 pounds on admission 05/10/2025 I's and O's: Net -7 L since admission, net -600 cc overnight Most recent TTE 05/10/2025: Left ventricular systolic function appears preserved. Mild MR, moderate to severe aortic stenosis. Right heart cath 05/11/25: PCWP 28 mmHg (large V waves to 40 mmHg also noted, consistent with acute heart failure and/or mitral valve disease) Left heart cath 05/11/25: Moderate CAD Most recent labs reviewed, 05/15/2025: Sodium 137, potassium 4.5, creatinine 1.61, BUN 34, glucose 255, calcium 8.9, EGFR 41.4, WBC 12, hemoglobin 10.3, platelets 306 GDMT limited by CKD: - Continue Farxiga 10 mg daily - Furosemide now decreased to 40 mg daily from twice daily - Continue spironolactone 25 mg daily #Paroxysmal A-fib [id number] = 5 (HTN, age, HF, CVA) Denies palpitations 12-24 hour telemetry reviewed: A fib, 64-92 bpm. - Was transition to heparin gtt in anticipation of TAVR today #Elevated troponin Denies chest pain Mildly elevated troponin most likely secondary to chronic myocardial injury Troponin 21--> 26 last on 05/10/2025 #Hypertension urgency Elevated Most recent blood pressure 145/66 at 08:32, 07:12 161/71 - Will prioritize hemodynamic stability pre-procedure to ensure adequate coronary perfusion across a stenotic valve - avoid excessive afterload reduction or intravascular volume shifts - Continue clonidine 0.2 mg 3 times daily - Continue hydralazine 25 mg 3 times daily - Continue labetalol 300 mg 3 times daily - Continue spironolactone 25 mg daily #CAD Denies chest pain Moderate coronary artery disease on coronary angiogram 05/11/2025 - Continue aspirin 81 mg daily - Continue ezetimibe 10 mg daily #CVA Recent stroke #Renal artery stenosis Renal artery stenosis status post left renal artery stent 2014 #CKD Improved from yesterday 05/14 Most recent labs reviewed, 05/15/2025: Sodium 137, potassium 4.5, creatinine 1.61, BUN 34, glucose 255, calcium 8.9, EGFR 41.4, WBC 12, hemoglobin 10.3, platelets 306 05/14/2025: Sodium 136, potassium 3.8, BUN 34, creatinine 1.74, EGFR 37.7, glucose 186 Labs 05/13/2025: Sodium 138, potassium 3.5, BUN 32, creatinine 1.65, glucose 206, calcium 8.5, EGFR 40.2, WBC 10.1, hemoglobin 9.8, platelets 287 Most recent labs reviewed, 05/14/2025: Sodium 138, potassium 3.8, BUN 34, creatinine 1.74, glucose 186, calcium 8.4, EGFR #Hyperlipidemia Has statin allergy List recent lipid panel reviewed, 05/11/2025: LDL 99, HDL 69, triglycerides 93, total cholesterol 187 LDL target goal should be at least < 70, ideally < 55 per most recent guidelines - Consider PCKS9 inhibitor - Continue ezetimibe 10 mg daily Plan Overview: Plan for TAVR today Xarelto on hold; on heparin gtt in anticipation of TAVR today Prioritize hemodynamic stability pre-procedure to ensure adequate coronary perfusion across a stenotic valve - avoid excessive afterload reduction or intravascular volume shifts Furosemide now 40 mg daily from twice daily ---> continue monitoring renal function, electrolytes Continue strict I&O monitoring and daily weights to guide volume management This note was partially composed using voice recognition software. While every effort was made to ensure accuracy, some unintentional telescope repairer errors may be present. Ruy Amanda [facility] Cardiovascular Medicine [1] History reviewed. No pertinent past medical history. [2] History reviewed. No pertinent surgical history. [3] Social History Tobacco Use Smoking status: Former Types: Cigarettes Smokeless tobacco: Never [4] Allergies Allergen Reactions Aminolevulinic Acid Hcl Unknown Iodinated Contrast Media Unknown Nitroglycerin Other hypotension Simvastatin Unknown * Mulu Daly PTA - 05/14/2025 3:51 PM EDT Physical Therapy Physical Therapy Treatment Patient Name: Nadir Beth : 1940 Today's Date: 05/14/2025 Problem List[1] Objective General Visit Information: PT Last Visit PT Received On: 05/14/25 Response to Previous Treatment: Patient with no complaints from previous session. General Family/Caregiver Present: Yes (Pt's and daughter are at bedside upon entry and remain throughout session.) Subjective: Pt seen bedside for PT session this p.m. Upon entry, pt in bedside chair from earlier session with RICHARDSON with family present at bedside. Pt is noted to be mostly asleep and initially difficult to awaken. Pt does become more alert as lines and pillows are moved. Family is reporting that pt has his days and nights mixed up . Pt is agreeable to working with PT as able, RN okays session. Vision - Basic Vision - Basic Assessment Current Vision: Wears glasses all the time Precautions Precautions Medical Precautions: fall risk, telemetry, IV, bed alarm, chair alarm (condom cath) Pain Pain Assessment Pain Assessment: No/denies pain Cognition Cognition Arousal/Alertness: Delayed responses to stimuli (lethargic) Orientation Level: Oriented to person Following Commands: Follows one step commands with increased time, Follows one step commands with repetition Safety Judgment: Decreased awareness of need for assistance, Decreased awareness of need for safety Awareness of Errors: Decreased awareness of errors Deficits: Decreased awareness of deficits Attention Span: Difficulty attending to directions Problem Solving: Assistance required to identify errors made, Assistance required to generate solutions, Assistance required to implement solutions Communication: (decreased communication with this PROJECT CONSTRUCTION MANAGER d/t lethargy) General Assessment General Assessment Hearing: ROSEBUD - family reports he has hearing aids but does not wear Hand Dominance: Right Static Sitting Balance Static Sitting Balance Static Sitting-Balance Support: Right upper extremity supported, Left upper extremity supported, Feet supported Static Sitting-Level of Assistance: Contact guard Static Sitting-Comment/Number of Minutes: at EOB Dynamic Sitting Balance Dynamic Sitting Balance Dynamic Sitting-Balance Support: Right upper extremity supported, Left upper extremity supported, Feet supported Dynamic Sitting Balance-Level of Assistance: Contact guard Dynamic Sitting-Comments: scooting/positioning at EOB Static Standing Balance Static Standing Balance Static Standing-Balance Support: Right upper extremity supported, Left upper extremity supported, With device (with RW) Static Standing-Level of Assistance: Contact guard Static Standing-Comment/Number of Minutes: CGA for overall safety/stability Dynamic Standing Balance Dynamic Standing Balance Dynamic Standing-Balance Support: Right upper extremity supported, Left upper extremity supported, With device (with RW) Dynamic Standing Balance-Level of Assistance: Minimum assistance (Min A to manage RW) Dynamic Standing-Comments: during ambulation General Assessments: Activity Tolerance Endurance: Stage II Stage II (METs 1.4-2.0) - Sittin-10 mins Activity Tolerance Comments: Upon entry, pt on RA and does not require supplemental O2 during session. Prior to activities while seated in bedside chair (HR 70, O2 96%). At end of session while supine in bed (HR 72, O2 96%). Pt does exhibit sig fatigue during session, but no SOB. Treatment: Ambulation Ambulation: Yes Ambulation 1 Surface 1: Level tile Device 1: Rolling walker Assistance 1: Minimum assistance Quality of Gait 1: Assist to manage RW d/t lethargy. Fwd flexed posture with verbal and tactile cues to correct. Short, shuffling steps to advance gait. Instability noted throughout, but no LOB. Comments/Distance (ft) 1: ~16' Stairs Stairs: No Bed Mobility Bed Mobility: Yes Bed Mobility 1 Bed Mobility From 1: Short sit Bed Mobility Type 1: To Bed Mobility to 1: Supine Level of Assistance 1: Minimum assistance (Min A to fully advance BLEs onto bed then to manage upper body.) Bed Mobility Comments 1: HOB slightly elevated Transfers Transfer: Yes Transfer 1 Transfer From 1: Sit Transfer Type 1: To and from Transfer to 1: Stand Technique 1: Sit to stand, Stand to sit (stand from EOB, sitting to EOB) Transfer Device 1: rolling walker Transfer Level of Assistance 1: Minimum assistance, Moderate verbal cues (verbal cues for correct hand placement both prior to standing and sitting) Outcome Assessments 6 Clicks (Mobility) Help from another person turning from your back to your side while in a flat bed without using bedrails: A little Help from another person moving from lying on your back to sitting on the side of a flat bed without using bedrails: A little Help from another person moving to and from a bed to a chair (including a wheelchair): A little Help from another person standing up from a chair using your arms (e.g. wheelchair or bedside chair): A little Help from another person to walk in hospital room: A little Help from another person climbing 3-5 steps with a railing: A lot Mobility 6 Clicks T-Score: 17 Assessment/Plan PT Assessment PT Assessment/PROJECT CONSTRUCTION MANAGER Summary: Pt limited by lethargy this session. He will benefit from cont skilled PT to cont to address overall balance, strength andd mobility deficits. Prognosis: Fair Evaluation/Treatment Tolerance: Patient limited by fatigue Medical Staff Made Aware: Yes PT Education/Comments: Pt returned to bed at end of session and remains there upon this PROJECT CONSTRUCTION MANAGER exitingroom. Tray table and call light are within reach. Bed alarm is armed and RN aware. Family remains at bedside. Plan Level of assist: 1 assist Treatment/Interventions: Functional transfer training, Bed mobility, Gait training, Balance training PT Plan: Skilled PT PT Frequency: 4 times per week PT Discharge Recommendations: Patient is able to return to prior living environment (presents from SNF) Goals: Multi-Disciplinary Problems (from Physical Therapy) Active Problems Problem: Balance Start Date: 05/10/25 Goal Start Date Expected End Date End Date LTG - Patient will maintain standing and sitting balance to allow for completion of daily activities 05/10/25 05/24/25 -- Problem: Mobility Start Date: 05/10/25 Goal Start Date Expected End Date End Date LTG - Patient will ambulate at least 100 feet with stand-by/contact guard using least restrictive device to improve tolerance to activity 05/10/25 05/24/25 -- Problem: Transfers Start Date: 05/10/25 Goal Start Date Expected End Date End Date LTG - Patient will complete all transfers with stand-by/contact guard using least restrictive device to improve functional independence 05/10/25 05/24/25 -- Goal Start Date Expected End Date End Date LTG - Patient will perform all bed mobility with no assistance to improve functional independence 05/10/25 05/24/25 -- Problem: PT Misc Start Date: 05/10/25 Goal Start Date Expected End Date End Date Patient will participate in at least 25 minutes of physical activity to improve tolerance to activity 05/10/25 05/24/25 -- Goal Start Date Expected End Date End Date Patient will participate in strength training to maintain functional strength required for independent mobility. 05/10/25 05/24/25 -- Mulu Daly, PROJECT CONSTRUCTION MANAGER Time in/out: 1341 - 1404 [1] Patient Active Problem List Diagnosis Primary hypertension Acute congestive heart failure ([facility]/H[facility]) History of CVA (cerebrovascular accident) Type 2 diabetes mellitus, with long-term current use of insulin ([facility]) Other hyperlipidemia Chronic atrial fibrillation ([facility]) Chest pain Angina pectoris, unstable ([facility]) Chronic kidney disease Elevated troponin Cosigned by Landen Rice PT at 05/14/2025 3:59 PM EDT * Linnea Dias RN - 05/14/2025 1:59 PM EDT Patient was admitted to the hospital for: Chest pain. Epic chart echo from 05/10/2025 reports: The left ventricle is normal size. Global left ventricular systolic function is difficult to assess due to rhythm but appears preserved. The current echo report does Not qualify for Cardiopulmonary Rehab services per CMS eligibility criteria. A Cardiopulmonary Rehab referral diagnosis and ICD code must also meet CMS criteria. Linnea Dias RN, BSN Cardiology Outpatient Coordinator Cardiopulmonary Rehab * Julio Cesar Medina MD - 05/14/2025 12:11 PM EDT Images from the original note were not included. Hospital Medicine Daily Progress Note - 05/14/2025 12:11 PM; Room: [address] [place] [address] Admission: 05/10/2025 2:37 AM; Length of stay: 4 days THE HOSPITALIST TEAM PREFERS TO USE EPIC CHAT FOR NON-URGENT COMMUNICATION 7AM- 7PM. IF I DO NOT RESPOND WITHIN 20 MINUTES OR URGENT MATTERS, PLEASE CALL THROUGH THE [facility] [employer]. FROM 7PM-7AM, PLEASE PAGE [phone](COVR). Code Status: Full Code Barriers to Discharge: Possible TAVR inpatient Expected Discharge Date: 1-2 days Discharge Destination: home Overview Patient is seen for evaluation and management of CHF and mild troponin elevations. Subjective Seen today in his room, alert and in no acute distress. Denies significant chest pain or shortness of breath Physical Exam Cardiovascular: Rate and Rhythm: Normal rate. Rhythm irregular. Pulses: Normal pulses. Heart sounds: Murmur can be heard in the right sternal border Pulmonary: Effort: Pulmonary effort is normal. Breath sounds: Normal breath sounds. Abdominal: General: Abdomen is flat. Palpations: Abdomen is soft. Musculoskeletal: Right lower leg: No edema. Left lower leg: No edema. Neurological: General: No focal deficit present. Visit Vitals BP 147/52 Pulse 76 Temp 36.6 ??C (97.9 ??F) (Temporal) Resp 13 Intake/Output Summary (Last 24 hours) at 05/14/2025 1211 Last data filed at 05/13/20251999 Gross per 24 hour Intake -- Output 650 ml Net -650 ml Estimated body mass index is 22.18 kg/m?? as calculated from the following: Height as of this encounter: 1.828 m (5' 11.97 ). Weight as of this encounter: 74.1 kg (163 lb 6.4 oz). Assessment and Plan Assessment & Plan Primary hypertension Continue current clonidine 0.2/3 times daily, hydralazine 25/ 3 times daily and labetalol Acute congestive heart failure ([facility]) Acute on chronic heart failure with preserved EF BNP of 736 Echo 05/10 showed EF preserved. Moderate AAS and AR, mild MR and TR Cardiac cath was done on 05/11: Moderate coronary artery disease and wedge pressure of 28 with cardiac output of 5.4 L/min cardiac index of 2.7 L/min/m?? Echo was done and showed EF appear preserved. Moderate to severe aortic stenosis Lasix 40 IV every 8 hours, likely to be switched to p.o. today Continue goal-directed medical therapy Farxiga, labetalol, Aldactone Farxiga and Aldactone were added. Patient also on labetalol Patient was evaluated by cardiothoracic team felt that patient undergo TAVR with possible PCI to LAD. CABG/AVR are too high to put proceed to recommend coronary artery bypass grafting/AVR specially with history of CVA History of CVA (cerebrovascular accident) On aspirin and Zetia Type 2 diabetes mellitus, with long-term current use of insulin ([facility]) Continue sliding scale insulin A1c came back of 9.3 Other hyperlipidemia Continue Zetia Chronic atrial fibrillation ([facility]) CHADS2 DS vascular score is 7 currently on Xarelto Patient already on labetalol Chronic kidney disease Not sure baseline kidney function, creatinine today 1.74 Will decrease Lasix to 40 mg daily Elevated troponin Highest troponin went up to 26 Likely combination of chronic kidney disease and CHF History of recent CVA about 4 months ago History of renal artery stenosis status post left renal artery stent in 2015 VTE Prophylaxis: On Xarelto Scheduled Meds aspirin, 81 mg, oral, Daily cholecalciferol, 1,000 Units, oral, Daily cloNIDine, 0.2 mg, oral, TID dapagliflozin propanediol, 10 mg, oral, Daily ezetimibe, 10 mg, oral, Daily furosemide, 40 mg, oral, BID hydrALAZINE, 25 mg, oral, TID insulin lispro, 0-10 Units, subcutaneous, TID with meals And insulin lispro, 0-8 Units, subcutaneous, Nightly labetalol, 300 mg, oral, TID rivaroxaban, 20 mg, oral, Daily with evening meal spironolactone, 25 mg, oral, Daily Pertinent Investigations Hematology: Results from last 7 days Lab Units 05/13/25 03405/11/25 0427 WBC AUTO 10*3/uL 10.18 11.58* HEMOGLOBIN g/dL 9.8* 9.9* HEMATOCRIT % 31.3* 31.8* MCV fL 82.4 82.8 PLATELETS AUTO 10*3/uL 287 312 Chemistry: Results from last 7 days Lab Units 05/14/25 0338 05/13/25 0343 05/12/25 0346 05/11/25 04205/10/25 0454 SODIUM mmol/L 138 138 138 < > 139 POTASSIUM mmol/L 3.8 3.5 3.5 < > 3.6 CHLORIDE mmol/L 100 99 99 < > 101 CO2 mmol/L 29 29 29 < > 26 BUN mg/dL 34* 32* 36* < > 28* CREATININE mg/dL 1.74* 1.65* 1.63* < > 1.45* GLUCOSE mg/dL 186* 206* 191* < > 156* MAGNESIUM mg/dL -- -- -- -- 2.0 CALCIUM mg/dL 8.4* 8.5* 8.5* < > 8.5* < > = values in this interval not displayed. Results from last 7 days Lab Units 05/10/25 0454 AST U/L 14 ALT U/L 7 ALK PHOS U/L 72 BILIRUBIN TOTAL mg/dL 0.4 Results from last 7 days Lab Units 05/14/25 0705 05/13/25205429/25 1644 05/13/25 1137 05/13/25 0704 05/12/252003 POCT GLUCOSE mg/dL 209* 219* 277* 274* 222* 275* Historical Values: (Includes values prior to this admission) Lab Results Component Value Date TSH 1.34 05/10/2025 HDL 69 05/11/2025 LDL 118 05/11/2025 No results found for: [id number] , IRON , TIBC , C3 , C4 , SHERRY , CANCA , ASO , PSA , CEA , CA125 , CA199 , AFP , CA153 Imaging Cardiac catheterization PROCEDURE PHYSICIAN: Shamar Nolan MD Clinical Presentation: 85 y.o. Male with history of A-fib on Xarelto, hypertension, HFpEF, CKD, recent history of CVA 4 months ago, renal artery stenosis transferred from [facility] for acute on chronic HFpEF and aortic stenosis. He presents for coronary angiogram and heart catheterization as part of the pre-TAVR workup. Final Impression: 1) coronary angiogram revealed moderate CAD 2) Echo showed severely decompensated heart failure with mean wedge pressure of 28 mmHg Plan: 1) optimal med therapy for CAD and HFpEF 2) further diuresis and optimization of HFpEF med therapy as tolerated Procedures Performed: coronary angiogram, right heart catheterization, conscious sedation 34 min, ultrasound guidance for vascular access Procedure Description: The patient was brought to the cardiac catheterization lab in a fasting state. Informed written consent was obtained. he was prepped and draped in usual sterile fashion over the left wrist and right neck and bilateral groins. Time-out was performed. he was given Versed and fentanyl for sedation. 1% lidocaine was infiltrated over the right internal jugular vein. Using ultrasound guidance and a micropuncture access technique a 6 Moldovan sheath was placed in the right internal jugular vein. The Garza catheter was advanced under fluoroscopic and hemodynamic monitoring to the right atrium. Pressure obtained of the right atrium, right ventricle, pulmonary artery, pulmonary capillary position. Oxygen saturation drawn for the pulmonary artery and Mary cardiac with a cardiac index were calculated. 1% lidocaine was infiltrated over the left radial artery. A 6-Moldovan Terumo Glidesheath slender was placed in left radial artery. Radial anti-vasospasm cocktail of verapamil 1.25 mg and nitroglycerin 100 mcg was administered through the sheath. All catheter exchanges were made over the Hendricks guidewire. Coronary angiogram was performed with a JL4 to engage the left main and a JR4 to engage the RCA. Coronary angiogram was performed in multiple orthogonal views. All catheters and wires were removed. The left radial sheath was removed and a TR band was applied to obtain hemostasis. The right internal jugular venous sheath was also removed and manual pressure applied for hemostasis. Specimens Removed: None Complications: None Hemodynamic Data: RA: 12 mmHg RV: 62/30 mmHg PA: 64/20 (41) mmHg PCWP: 28 mmHg (large V waves to 40 mmHg also noted, consistent with acute heart failure and/or mitral valve disease) AO: 133/55 (MAP 85) mmHg CO: 5.4 L/min CI: 2.7 L/min/m2 O2 Sat: PA sat: 64% AO sat: 99% Coronary Angiogram: Left main: The left main is a large vessel and is. Mid left main is 20% stenosis. The distal left main splits into 4 different branches including the LAD, ramus, and a high OM1 and a circumflex LAD: the ostial LAD has 30% stenosis. The mid LAD has a 50% stenosis. The remainder the LAD and diagonal branches are patent with luminal irregularities. RAMUS: patent with luminal irregularities LCX: The left circumflex is a moderate caliber vessel. The proximal to mid left circumflex is a diffuse 40% stenosis. The remainder of the circumflex is patent with luminal irregularities. RCA: The RCA is a large vessel and is dominant. The proximal RCA has 30% stenosis. Remainder the RCA is luminal irregularities but is otherwise patent. The right PDA and FELIPE are both patent. Discharge Planning Expected Discharge Disposition: Longterm Facility (03) PT Discharge Recommendations: Patient is able to return to prior living environment (Presents from SNF) OT Discharge Recommendations: Patient is able to return to prior living environment Signed Julio Cesar Medina MD [facility] Medicine 05/14/2025 12:11 PM * DEBRA Butler - 05/14/2025 11:39 AM EDT Occupational Therapy Occupational Therapy Treatment Patient Name: Nadir Beth : 1940 Today's Date: 05/14/2025 Start Time: 1139 Stop Time: 1223 Time Calculation (min): 44 min OT Therapeutic Procedures Time Entry Therapeutic Activity Time Entry: 10 Therapeutic Exercise Time Entry: 34 Problem List Problem List[1] Pain: Pain Assessment Pain Assessment: No/denies pain Objective General Visit Information: OT Last Visit OT Received On: 05/14/25 General Subjective: Pt was friendly and cooperative Session Comments: Upon arrival resume writer noted pts male purwick had leaked. Brief and bedding was soaked through Family/Caregiver Present: Yes (Daughter and pts spouse) ADL Assessment: UE Bathing UE Bathing Level of Assistance: Setup UE Bathing Where Assessed: Edge of bed UE Bathing Comments: With cues for encouragement LE Bathing LE Bathing Level of Assistance: Minimum assistance LE Bathing Where Assessed: (Standing with use of walker) LE Bathing Comments: (Assist required for thoroughness of perianal hygiene) UE Dressing UE Dressing Level of Assistance: Minimum assistance UE Dressing Where Assessed: Edge of bed UE Dressing Comments: To change gowns. Assist required to tie/untie LE Dressing LE Dressing: Yes Adult Briefs Level of Assistance: Maximum assistance LE Dressing Where Assessed: (Standing with walker) Static Sitting Balance Static Sitting Balance Static Sitting-Balance Support: Right upper extremity supported, Left upper extremity supported, Noupper extremity supported, Unilateral upper extremity supported, Feet supported Static Sitting-Level of Assistance: Contact guard Static Sitting-Comment/Number of Minutes: Web Producer noted posterior lean while utilizing B UE's in bathing task. Tactile cues required to resume writer self Dynamic Sitting Balance Dynamic Sitting Balance Dynamic Sitting-Balance Support: Right upper extremity supported, Left upper extremity supported, Unilateral upper extremity supported, No upper extremity supported, Feet supported Dynamic Sitting-Balance: (While participating in bathing tasks) Dynamic Sitting Balance-Level of Assistance: Contact guard Dynamic Sitting-Comments: (Posterior lean noted, cues to correct) Static Standing Balance Static Standing Balance Static Standing-Balance Support: Right upper extremity supported, Unilateral upper extremity supported, Left upper extremity supported, With device Static Standing-Level of Assistance: Close supervision Dynamic Standing Balance Dynamic Standing Balance Dynamic Standing-Balance Support: Right upper extremity supported, Left upper extremity supported, Unilateral upper extremity supported, With device Dynamic Standing-Balance: (While participating in gunnar hygiene) Dynamic Standing Balance-Level of Assistance: Contact guard Bed Mobility Bed Mobility Bed Mobility: Yes Bed Mobility 1 Bed Mobility From 1: Supine Bed Mobility Type 1: To and from Bed Mobility to 1: Short sit Level of Assistance 1: Minimum assistance Bed Mobility Comments 1: With use of hospital bed and cues for encouragement. Transfers Transfers Transfer: Yes Transfer 1 Transfer From 1: Sit Transfer Type 1: To and from Transfer to 1: Stand Technique 1: Sit to stand, Stand to sit Transfer Device 1: rolling walker Transfer Level of Assistance 1: Minimum assistance Trials/Comments 1: (1) Transfers 2 Transfer From 2: Bed Transfer Type 2: To Transfer to 2: Chair with arms Technique 2: (Ambulating) Transfer Device 2: rolling walker Transfer Level of Assistance 2: Minimum assistance Trials/Comments 2: 1 Treatment: Therapeutic Exercise Therapeutic Exercise Time Entry: 34 Therapeutic Activity Therapeutic Activity Time Entry: 10 Treatment Comments: Pt was up in chair at EOS with alarm on and family present Outcome Assessments AM-PAC 6 Clicks Putting on and taking off regular lower body clothing?: A Little (Min Assist/Contact Guard/Supervision) Bathing(Including washing,rinsing,drying)?: A Little (Min Assist/Contact Guard/Supervision) Toileting, which includes using the toilet,bedpan,or urinal?: A Little (Min Assist/Contact Guard/Supervision) Putting on and taking off regular upper body clothing?: None (Independent) Taking care of personal grooming such as brushing teeth?: None (Independent) Eating meals?: None (Independent) Total Score OT [facility]: 21 Assessment/Plan OT Assessment OT Impairments: Decreased ADL status, Decreased endurance, Decreased functional mobility, DecreasedIADLs OT Assessment/DENNY Summary: Pt is progressing toward goals but would benefit from continued therapy to increase balance, safety and endurance during functional mobility and ADL's to return to PLOF Prognosis: Fair Evaluation/Treatment Tolerance: Patient tolerated treatment well Medical Staff Made Aware: Yes Strengths: Support of extended family/friends, Support and attitude of living partners, Premorbid level of function Barriers to Discharge: Capable of completing ADLs semi/independent OT Education/Comments: Purpose of therapy, hand placement during transfers. Plan Level of assist: 1 assist Treatment Interventions: ADL retraining, Functional transfer training, Endurance training, Neuromuscular reeducation, Patient/family training OT Plan: Skilled OT OT Frequency: 5 times per week OT Discharge Recommendations: Patient is able to return to prior living environment Equipment Recommended: (TBD) OT Goals: Multi-Disciplinary Problems (from Occupational Therapy) Active Problems Problem: Balance Start Date: 05/10/25 Goal Start Date Expected End Date End Date LTG - Patient will maintain stand balance to allow for safe mobility 05/10/25 05/24/25 -- Problem: Bathing Start Date: 05/10/25 Goal Start Date Expected End Date End Date LTG - Patient will utilize adaptive techniques to bathe body with no assistance 05/10/25 05/24/25 -- Problem: Dressings Lower Extremities Start Date: 05/10/25 Goal Start Date Expected End Date End Date LTG - Patient will dress lower body with no assistance 05/10/25 05/24/25 -- Problem: Toileting Start Date: 05/10/25 Goal Start Date Expected End Date End Date LTG - Patient will utilize adaptive techniques/equipment to complete daily toileting tasks with no assistance 05/10/25 05/24/25 -- Problem: OT Misc Start Date: 05/10/25 Goal Start Date Expected End Date End Date Mod I adl transfers 50 feet and standing 10 minutes 05/10/25 05/24/25 -- DEBRA Butler [1] Patient Active Problem List Diagnosis Primary hypertension Acute congestive heart failure ([facility]/H[facility]) History of CVA (cerebrovascular accident) Type 2 diabetes mellitus, with long-term current use of insulin ([facility]) Other hyperlipidemia Chronic atrial fibrillation ([facility]) Chest pain Angina pectoris, unstable ([facility]) Chronic kidney disease Elevated troponin Cosigned by Robinson Gurrola OT at 05/15/2025 9:45 AM EDT * Ruy Amanda CNP - 05/14/2025 10:00 AM EDT Images from the original note were not included. Cardiology Inpatient Progress Note Subjective Reason for consult: Acute on chronic HFpEF, hypertension urgency, TAVR. HPI: Nadir Beth is a 85 y.o. year old male with significant medical history of A-fib on Xarelto, hypertension, HFpEF, CKD, recent history of CVA 4 months back, renal artery stenosis transferred from [facility] for acute on chronic heart failure. Patient had history of stroke 4 months back and was in rehab patient has been having progressive lower extremity edema for few days. Patient was advised to increase his Lasix from 20 to 40 mg and blood work was done which showed BNP 6214 and was advised to go to the ED. In [place] ED chest x-ray showed pulmonary vascular congestion with right-sided pleural effusion and EKG showed A-fib, patient was found to be hypertensive with blood pressure 190/68. Patient follows up with Dr. Bland who had scheduled right heart cath on 05/10/2025. Echo done today showed unable to obtain EF secondary to rhythm however it was preserved, severe RA and LA enlargement, moderate to severe , AR, mild MR and TR. 05/14/2025: Patient seen evaluated bedside today. He appears in no acute distress, denies chest pain, shortnessof breath, palpitations, lightheaded dizziness, or lower extremity edema. Tentative plan for TAVR tomorrow pending scheduling 12-24 hour telemetry reviewed: A fib, average 71 bpm. 05/13/2025: Patient seen and evaluated at the bedside today, he is accompanied by his bedside nurse. Currently eating breakfast, appears in no acute distress, awake and alert. He remains on room air saturating 94 to 95%. Reportedly confused overnight. Blood pressure noted to be elevated in the 150's systolic, however he has not received morning antihypertensive medications yet. Otherwise, he denies chest pain, shortness of breath, palpitations, lightheaded or dizziness, or lower extremity edema. Plan to transition from IV Lasix to p.o. Plan to ambulate today. 12-24 hour telemetry reviewed: A fib 72-100 bpm. PAST MEDICAL HISTORY: Medical History[1] PAST SURGICAL HISTORY: Surgical History[2] FAMILY HISTORY: family history is not on file. SOCIAL HISTORY: Social History[3] REVIEW OF SYSTEMS: General: Denies fever, chills, fatigue, weight loss, or malaise. HENT: Head: Denies headache or dizziness. Eyes: Denies vision changes. Nose: Denies nasal congestion, discharge, or epistaxis. Throat: Denies pain or difficulty swallowing. Pulmonary: Denies shortness of breath, cough, wheezing, or hemoptysis. Cardiovascular: Denies chest pain, palpitations, dizziness, or syncope. Peripheral Vascular: Denies leg swelling, cold extremities or claudication. Abdomen: Denies abdominal pain, nausea, vomiting, diarrhea, constipation, or bloating. No changes in appetite. Neurological: Denies headaches, weakness, numbness, tingling, or difficulty with coordination. Skin: Denies rashes, lesions, or itching. ALLERGIES: Allergies[4] Objective 12-24 hour telemetry reviewed: Cara champion, average 71 bpm. CURRENT MEDS: aspirin, 81 mg, oral, Daily cholecalciferol, 1,000 Units, oral, Daily cloNIDine, 0.2 mg, oral, TID dapagliflozin propanediol, 10 mg, oral, Daily ezetimibe, 10 mg, oral, Daily furosemide, 40 mg, oral, BID hydrALAZINE, 25 mg, oral, TID insulin lispro, 0-10 Units, subcutaneous, TID with meals And insulin lispro, 0-8 Units, subcutaneous, Nightly labetalol, 300 mg, oral, TID rivaroxaban, 20 mg, oral, Daily with evening meal spironolactone, 25 mg, oral, Daily PRN medications: acetaminophen, glucose OR dextrose 50 % in water (D50W), melatonin, polyethylene glycol Patient Vitals for the past 24 hrs: BP Temp Temp src Pulse Resp SpO2 Weight 05/14/25 1016 163/65 -- -- 79 -- -- -- 05/14/25 0746 166/68 36.7 ??C (98.1 ??F) Oral 79 12 -- -- 05/14/25 0745 163/77 36.7 ??C (98.1 ??F) Oral 79 16 97 % -- 05/14/25 0602 -- -- -- -- -- -- 74.1 kg (163 lb 6.4 oz) 05/14/25 0400 146/60 -- -- 74 12 92 % -- 05/14/25 0000 141/54 -- -- 80 16 98 % -- 05/13/25 2100 160/63 -- -- 79 -- -- -- 05/13/25 2000 145/56 -- -- 71 12 99 % -- 05/13/25 1642 130/54 -- -- -- -- -- -- 05/13/25 1200 128/52 36.2 ??C (97.2 ??F) Temporal 78 17 96 % -- BP 163/65 Pulse 79 Temp 36.7 ??C (98.1 ??F) (Oral) Resp 12 Ht 1.828 m (5' 11.97 ) Wt 74.1kg (163 lb 6.4 oz) SpO2 97% BMI 22.18 kg/m?? Wt Readings from Last 3 Encounters: 05/14/25 74.1 kg (163 lb 6.4 oz) PHYSICAL EXAM: General: Alert and oriented, Appears comfortable in no acute distress. HENT: Head: Normocephalic, atraumatic. Eyes: Conjunctiva clear, sclera anicteric. No periorbital edema. Nose: No nasal congestion or discharge. Throat: Mucous membranes moist and pink. Neck: Supple, no lymphadenopathy. No bruits. No jugular venous distension (JVD) at 45??. Pulmonary: Symmetrical chest rise, no accessory muscle use. Clear to auscultation bilaterally. No wheezes, rales, or rhonchi. No tenderness. Cardiovascular: RUSB murmur. Peripheral Vascular: Pulses (radial, dorsalis pedis, posterior tibial) 2+ bilaterally and symmetrical. No edema, cyanosis, or clubbing. Capillary refill <2 seconds. Abdomen: Flat, no visible pulsations or distension. Bowel sounds normoactive in all quadrants. Soft, non-tender, no masses or hepatosplenomegaly. Extremities: No cyanosis, clubbing, or edema. Warm to touch, full range of motion. No tenderness. Neurological: Alert and oriented to person, place, and time. Normal sensation in all extremities. Skin: Warm, dry, and intact. No rashes, lesions, pallor, or cyanosis. Capillary refill <2 seconds. No diaphoresis or ecchymosis. Relevant Lab Results: Lab Results Component Value Date WBC 10.18 05/13/2025 HGB 9.8 (L) 05/13/2025 HCT 31.3 (L) 05/13/2025 MCV 82.4 05/13/2025 PLT 287 05/13/2025 Lab Results Component Value Date NA 138 05/14/2025 K 3.8 05/14/2025 CL 100 05/14/2025 ANIONGAP 13 05/14/2025 BUN 34 (H) 05/14/2025 CREATININE 1.74 (H) 05/14/2025 CALCIUM 8.4 (L) 05/14/2025 MG 2.0 05/10/2025 Lab Results Component Value Date BILITOT 0.4 05/10/2025 ALKPHOS 72 05/10/2025 AST 14 05/10/2025 ALT 7 05/10/2025 PROT 6.2 05/10/2025 ALBUMIN 3.5 05/10/2025 Lab Results Component Value Date CHOLESTEROL 187 05/11/2025 TRIGLYCERIDES 93 05/11/2025 HDL 69 05/11/2025 LDL CALC 99 05/11/2025 Lab Results Component Value Date TSH 1.34 05/10/2025 No results found for: DIGOXIN LVL Lab Results Component Value Date HGBA1C 9.3 (H) 05/11/2025 No results found for: TROPONIN I , TROPONIN T , POC TROPONIN I , POC TROPONIN I. Lab Results Component Value Date BNP 736 (H) 05/10/2025 I have personally reviewed and analyzed the above laboratory results. These findings have been analyzed in the context of the patient's clinical presentation. Relevant Imaging Results / Cardiovascular Diagnostic Studies: No results found for this or any previous visit (from the past 4464 hours). Cardiac catheterization PROCEDURE PHYSICIAN: Shamar Nolan MD Clinical Presentation: 85 y.o. Male with history of A-fib on Xarelto, hypertension, HFpEF, CKD, recent history of CVA 4 months ago, renal artery stenosis transferred from [facility] for acute on chronic HFpEF and aortic stenosis. He presents for coronary angiogram and heart catheterization as part of the pre-TAVR workup. Final Impression: 1) coronary angiogram revealed moderate CAD 2) Echo showed severely decompensated heart failure with mean wedge pressure of 28 mmHg Plan: 1) optimal med therapy for CAD and HFpEF 2) further diuresis and optimization of HFpEF med therapy as tolerated Procedures Performed: coronary angiogram, right heart catheterization, conscious sedation 34 min, ultrasound guidance for vascular access Procedure Description: The patient was brought to the cardiac catheterization lab in a fasting state. Informed written consent was obtained. he was prepped and draped in usual sterile fashion over the left wrist and right neck and bilateral groins. Time-out was performed. he was given Versed and fentanyl for sedation. 1% lidocaine was infiltrated over the right internal jugular vein. Using ultrasound guidance and a micropuncture access technique a 6 Moldovan sheath was placed in the right internal jugular vein. The Garza catheter was advanced under fluoroscopic and hemodynamic monitoring to the right atrium. Pressure obtained of the right atrium, right ventricle, pulmonary artery, pulmonary capillary position. Oxygen saturation drawn for the pulmonary artery and Mary cardiac with a cardiac index were calculated. 1% lidocaine was infiltrated over the left radial artery. A 6-[place] Terumo Glidesheath slender was placed in left radial artery. Radial anti-vasospasm cocktail of verapamil 1.25 mg and nitroglycerin 100 mcg was administered through the sheath. All catheter exchanges were made over the Hendricks guidewire. Coronary angiogram was performed with a JL4 to engage the left main and a JR4 to engage the RCA. Coronary angiogram was performed in multiple orthogonal views. All catheters and wires were removed. The left radial sheath was removed and a TR band was applied to obtain hemostasis. The right internal jugular venous sheath was also removed and manual pressure applied for hemostasis. Specimens Removed: None Complications: None Hemodynamic Data: RA: 12 mmHg RV: 62/30 mmHg PA: 64/20 (41) mmHg PCWP: 28 mmHg (large V waves to 40 mmHg also noted, consistent with acute heart failure and/or mitral valve disease) AO: 133/55 (MAP 85) mmHg CO: 5.4 L/min CI: 2.7 L/min/m2 O2 Sat: PA sat: 64% AO sat: 99% Coronary Angiogram: Left main: The left main is a large vessel and is. Mid left main is 20% stenosis. The distal left main splits into 4 different branches including the LAD, ramus, and a high OM1 and a circumflex LAD: the ostial LAD has 30% stenosis. The mid LAD has a 50% stenosis. The remainder the LAD and diagonal branches are patent with luminal irregularities. RAMUS: patent with luminal irregularities LCX: The left circumflex is a moderate caliber vessel. The proximal to mid left circumflex is a diffuse 40% stenosis. The remainder of the circumflex is patent with luminal irregularities. RCA: The RCA is a large vessel and is dominant. The proximal RCA has 30% stenosis. Remainder the RCA is luminal irregularities but is otherwise patent. The right PDA and FELIPE are both patent. TTE 05/10/2025: Left Ventricle: The left ventricle is normal size. Global left ventricular systolic function is difficult to assess due to rhythm but appears preserved. Left ventricular wall thickness is increased. Right Ventricle: The right ventricle is normal in size. Normal right ventricular systolic function. Doppler studies suggest severely elevated right sided pressures. Left Atrium: The left atrium is severely enlarged. Mitral Valve: Mild mitral regurgitation. Aortic Valve: Mild aortic valve regurgitation. Moderate to severe aortic stenosis. Overall Conclusions: Doppler velocities may be underestimated due to rhythm. I have personally reviewed and analyzed all available cardiac diagnostic tests and imaging reports.Findings have been analyzed in the context of the patient's clinical status. ASSESSMENT & PLAN #HFpEF NYHA II Appears euvolemic Compensated Weight today is 163 pounds ---> 178 pounds on admission 05/10/2025 I's and O's: Net -6.8 L since admission, net -650 cc overnight Most recent TTE 05/10/2025: Left ventricular systolic function appears preserved. Mild MR, moderate to severe aortic stenosis. Right heart cath 05/11/25: PCWP 28 mmHg (large V waves to 40 mmHg also noted, consistent with acute heart failure and/or mitral valve disease) Left heart cath 05/11/25: Moderate CAD Most recent labs reviewed, 05/14/2025: Sodium 136, potassium 3.8, BUN 34, creatinine 1.74, EGFR 37.7, glucose 186 GDMT limited by CKD: - Continue Farxiga 10 mg daily - Continue furosemide 40 mg twice daily (transition yesterday 05/14 from 40 mg IV q8) - Continue spironolactone 25 mg daily #Aortic stenosis Denies chest pain. Independent with ADLs and ambulates without SOB on flat ground, but reports HERNANDEZ with stair climbing. Severe aortic stenosis on 05/10/2025 TTE LHC/RHC 05/11/2025 please order for heparin GTT moderate CAD, PCWP 28 mmHg, normal cardiac index of 2.7. He was seen by CT surgery for aortic stenosis evaluation. He is not a current surgical candidate for aortic valve replacement and CT surgery recommends TAVR. This will be done outpatient. - Plan for TAVR tomorrow ---> n.p.o. midnight - Xarelto on hold; order for heparin gtt #Elevated troponin Denies chest pain Mildly elevated troponin most likely secondary to chronic myocardial injury Troponin 21--> 26 last on 05/10/2025 #Paroxysmal A-fib [id number] = 5 (HTN, age, HF, CVA) Denies palpitations 12-24 hour telemetry reviewed: A fib, average 71 bpm. - Continue Xarelto 20 mg daily #Hypertension urgency Elevated Blood pressure this morning before medications 163/65 (HR 79), trends overnight 140s to 160s - Will prioritize hemodynamic stability pre-procedure to ensure adequate coronary perfusion across a stenotic valve - avoid excessive afterload reduction or intravascular volume shifts - Continue clonidine 0.2 mg 3 times daily - Continue hydralazine 25 mg 3 times daily - Continue labetalol 300 mg 3 times daily - Continue spironolactone 25 mg daily #CAD Denies chest pain Moderate coronary artery disease on coronary angiogram 05/11/2025 - Continue aspirin 81 mg daily - Continue ezetimibe 10 mg daily #CVA Recent stroke #Renal artery stenosis Renal artery stenosis status post left renal artery stent 2014 #CKD Slightly worse today Most recent labs reviewed, 05/14/2025: Sodium 136, potassium 3.8, BUN 34, creatinine 1.74, EGFR 37.7, glucose 186 Labs 05/13/2025: Sodium 138, potassium 3.5, BUN 32, creatinine 1.65, glucose 206, calcium 8.5, EGFR 40.2, WBC 10.1, hemoglobin 9.8, platelets 287 Most recent labs reviewed, 05/14/2025: Sodium 138, potassium 3.8, BUN 34, creatinine 1.74, glucose 186, calcium 8.4, EGFR #Hyperlipidemia Has statin allergy List recent lipid panel reviewed, 05/11/2025: LDL 99, HDL 69, triglycerides 93, total cholesterol 187 LDL target goal should be at least < 70, ideally < 55 per most recent guidelines - Consider PCKS9 inhibitor - Continue ezetimibe 10 mg daily Plan Overview: Plan for TAVR tomorrow ---> n.p.o. midnight Xarelto on hold; order placed for heparin gtt Prioritize hemodynamic stability pre-procedure to ensure adequate coronary perfusion across a stenotic valve - avoid excessive afterload reduction or intravascular volume shifts Continue furosemide 40 mg twice daily ---> continue monitoring renal function, electrolytes Continue strict I&O monitoring and daily weights to guide volume management This note was partially composed using voice recognition software. While every effort was made to ensure accuracy, some unintentional telescope repairer errors may be present. Ruy Amanda [facility] Cardiovascular Medicine [1] History reviewed. No pertinent past medical history. [2] History reviewed. No pertinent surgical history. [3] Social History Tobacco Use Smoking status: Former Types: Cigarettes Smokeless tobacco: Never [4] Allergies Allergen Reactions Aminolevulinic Acid Hcl Unknown Iodinated Contrast Media Unknown Nitroglycerin Other hypotension Simvastatin Unknown * Paradise Garrison - 05/14/2025 9:17 AM EDT discharge planning: return to [facility] 0917 updates sent to [facility], via [employer] system [id number]; notice sent to SNF, via [employer] system, with request to confirm bed availability today 1028 SNF has bed today but Discharge Order has been removed for Patient to have TAVR tomorrow; SNF notified via [employer] system discharge barriers: [] no insurance precert needed for SNF, but confirm bed at discharge [] * Julio Cesar Medina MD - 05/13/2025 10:51 AM EDT Images from the original note were not included. Hospital Medicine Daily Progress Note - 05/13/2025 10:51 AM; Room: [address] [place] [address] Admission: 05/10/2025 2:37 AM; Length of stay: 3 days THE HOSPITALIST TEAM PREFERS TO USE EPIC CHAT FOR NON-URGENT COMMUNICATION 7AM- 7PM. IF I DO NOT RESPOND WITHIN 20 MINUTES OR URGENT MATTERS, PLEASE CALL THROUGH THE APPEALS [facility] [employer]. FROM 7PM-7AM, PLEASE PAGE [phone](COVR). Code Status: Full Code Barriers to Discharge: Cardiac workup Expected Discharge Date: 1day Discharge Destination: home Overview Patient is seen for evaluation and management of CHF and mild troponin elevations. Subjective Seen today in his room, alert and in no acute distress. Denies significant chest pain or shortness of breath Physical Exam Cardiovascular: Rate and Rhythm: Normal rate. Rhythm irregular. Pulses: Normal pulses. Heart sounds: Murmur can be heard in the right sternal border Pulmonary: Effort: Pulmonary effort is normal. Breath sounds: Normal breath sounds. Abdominal: General: Abdomen is flat. Palpations: Abdomen is soft. Musculoskeletal: Right lower leg: No edema. Left lower leg: No edema. Neurological: General: No focal deficit present. Visit Vitals BP 151/55 Pulse 81 Temp 36.4 ??C (97.5 ??F) (Temporal) Resp 15 Intake/Output Summary (Last 24 hours) at 05/13/2025 1051 Last data filed at 05/13/2025 0900 Gross per 24 hour Intake 1020 ml Output 2610 ml Net -1590 ml Estimated body mass index is 22.42 kg/m?? as calculated from the following: Height as of this encounter: 1.828 m (5' 11.97 ). Weight as of this encounter: 74.9 kg (165 lb 3.2 oz). Assessment and Plan Assessment & Plan Primary hypertension Continue current clonidine 0.2 3 times daily, hydralazine 25 3 times daily and labetalol Acute congestive heart failure (CMS/HCC) Acute on chronic heart failure with preserved EF BNP of 736 Echo 05/10 showed EF preserved. Moderate AAS and AR, mild MR and TR Cardiac cath was done on 05/11: Moderate coronary artery disease and wedge pressure of 28 with cardiac output of 5.4 L/min cardiac index of 2.7 L/min/m?? Echo was done and showed EF appear preserved. Moderate to severe aortic stenosis Lasix 40 IV every 8 hours, likely to be switched to p.o. today Continue goal-directed medical therapy Farxiga, labetalol, Aldactone Farxiga and Aldactone were added. Patient also on labetalol Patient was evaluated by cardiothoracic team felt that patient undergo TAVR with possible PCI to LAD. Plan to be done outpatient CABG/AVR are too high to put proceed to recommend coronary artery bypass grafting/AVR specially with history of CVA History of CVA (cerebrovascular accident) On aspirin and Zetia Type 2 diabetes mellitus, with long-term current use of insulin ([facility]) Continue sliding scale insulin A1c came back of 9.3 Other hyperlipidemia Continue Zetia Chronic atrial fibrillation ([facility]) CHADS2 DS vascular score is 7 currently on Xarelto Patient already on labetalol Chronic kidney disease Not sure baseline kidney function, creatinine today 1.65 Elevated troponin Highest troponin went up to 26 Likely combination of chronic kidney disease and CHF History of recent CVA about 4 months ago History of renal artery stenosis status post left renal artery stent in 2014 VTE Prophylaxis: On Xarelto Scheduled Meds aspirin, 81 mg, oral, Daily cholecalciferol, 1,000 Units, oral, Daily cloNIDine, 0.2 mg, oral, TID dapagliflozin propanediol, 10 mg, oral, Daily ezetimibe, 10 mg, oral, Daily furosemide, 40 mg, intravenous, q8h hydrALAZINE, 25 mg, oral, TID insulin lispro, 0-10 Units, subcutaneous, TID with meals And insulin lispro, 0-8 Units, subcutaneous, Nightly labetalol, 300 mg, oral, TID rivaroxaban, 20 mg, oral, Daily with evening meal spironolactone, 25 mg, oral, Daily Pertinent Investigations Hematology: Results from last 7 days Lab Units 05/13/2534205/11/25426 WBC AUTO 10*3/uL 10.18 11.58* HEMOGLOBIN g/dL 9.8* 9.9* HEMATOCRIT % 31.3* 31.8* MCV fL 82.4 82.8 PLATELETS AUTO 10*3/uL 287 312 Chemistry: Results from last 7 days Lab Units 05/13/2534205/12/2534505/11/257 05/10/25 0454 SODIUM mmol/L 138 138 140 139 POTASSIUM mmol/L 3.5 3.5 4.2 3.6 CHLORIDE mmol/L 99 99 101 101 CO2 mmol/L 29 29 28 26 BUN mg/dL 32* 36* 31* 28* CREATININE mg/dL 1.65* 1.63* 1.56* 1.45* GLUCOSE mg/dL 206* 191* 237* 156* MAGNESIUM mg/dL -- -- -- 2.0 CALCIUM mg/dL 8.5* 8.5* 8.4* 8.5* Results from last 7 days Lab Units 05/10/25 0454 AST U/L 14 ALT U/L 7 ALK PHOS U/L 72 BILIRUBIN TOTAL mg/dL 0.4 Results from last 7 days Lab Units 05/13/25 0704 05/12/25200305/12/25 1615 05/12/25 1123 05/12/25 0707 05/11/25 2102 POCT GLUCOSE mg/dL 222* 275* 285* 332* 214* 306* Historical Values: (Includes values prior to this admission) Lab Results Component Value Date TSH 1.34 05/10/2025 HDL 69 05/11/2025 LDL 118 05/11/2025 No results found for: [id number] , IRON , TIBC , C3 , C4 , SHERRY , CANCA , ASO , PSA , CEA , CA125 , CA199 , AFP , CA153 Imaging Cardiac catheterization PROCEDURE PHYSICIAN: Shamar Nolan MD Clinical Presentation: 85 y.o. Male with history of A-fib on Xarelto, hypertension, HFpEF, CKD, recent history of CVA 4 months ago, renal artery stenosis transferred from [facility] for acute on chronic HFpEF and aortic stenosis. He presents for coronary angiogram and heart catheterization as part of the pre-TAVR workup. Final Impression: 1) coronary angiogram revealed moderate CAD 2) Echo showed severely decompensated heart failure with mean wedge pressure of 28 mmHg Plan: 1) optimal med therapy for CAD and HFpEF 2) further diuresis and optimization of HFpEF med therapy as tolerated Procedures Performed: coronary angiogram, right heart catheterization, conscious sedation 34 min, ultrasound guidance for vascular access Procedure Description: The patient was brought to the cardiac catheterization lab in a fasting state. Informed written consent was obtained. he was prepped and draped in usual sterile fashion over the left wrist and right neck and bilateral groins. Time-out was performed. he was given Versed and fentanyl for sedation. 1% lidocaine was infiltrated over the right internal jugular vein. Using ultrasound guidance and a micropuncture access technique a 6 Moldovan sheath was placed in the right internal jugular vein. The Garza catheter was advanced under fluoroscopic and hemodynamic monitoring to the right atrium. Pressure obtained of the right atrium, right ventricle, pulmonary artery, pulmonary capillary position. Oxygen saturation drawn for the pulmonary artery and Mary cardiac with a cardiac index were calculated. 1% lidocaine was infiltrated over the left radial artery. A 6-[place] Terumo Glidesheath slender was placed in left radial artery. Radial anti-vasospasm cocktail of verapamil 1.25 mg and nitroglycerin 100 mcg was administered through the sheath. All catheter exchanges were made over the Hendricks guidewire. Coronary angiogram was performed with a JL4 to engage the left main and a JR4 to engage the RCA. Coronary angiogram was performed in multiple orthogonal views. All catheters and wires were removed. The left radial sheath was removed and a TR band was applied to obtain hemostasis. The right internal jugular venous sheath was also removed and manual pressure applied for hemostasis. Specimens Removed: None Complications: None Hemodynamic Data: RA: 12 mmHg RV: 62/30 mmHg PA: 64/20 (41) mmHg PCWP: 28 mmHg (large V waves to 40 mmHg also noted, consistent with acute heart failure and/or mitral valve disease) AO: 133/55 (MAP 85) mmHg CO: 5.4 L/min CI: 2.7 L/min/m2 O2 Sat: PA sat: 64% AO sat: 99% Coronary Angiogram: Left main: The left main is a large vessel and is. Mid left main is 20% stenosis. The distal left main splits into 4 different branches including the LAD, ramus, and a high OM1 and a circumflex LAD: the ostial LAD has 30% stenosis. The mid LAD has a 50% stenosis. The remainder the LAD and diagonal branches are patent with luminal irregularities. RAMUS: patent with luminal irregularities LCX: The left circumflex is a moderate caliber vessel. The proximal to mid left circumflex is a diffuse 40% stenosis. The remainder of the circumflex is patent with luminal irregularities. RCA: The RCA is a large vessel and is dominant. The proximal RCA has 30% stenosis. Remainder the RCA is luminal irregularities but is otherwise patent. The right PDA and FELIPE are both patent. Discharge Planning Expected Discharge Disposition: Longterm Facility (03) PT Discharge Recommendations: Patient is able to return to prior living environment (Presents from SNF) OT Discharge Recommendations: Patient is able to return to prior living environment Signed Julio Cesar Medina MD Hospital Medicine 05/13/2025 10:51 AM * Ruy Amanda CNP - 05/13/2025 8:50 AM EDT Images from the original note were not included. Cardiology Inpatient Progress Note Subjective Reason for consult: Acute on chronic HFpEF, hypertension urgency HPI: Nadir Beth is a 85 y.o. year old male with significant medical history of A-fib on Xarelto, hypertension, HFpEF, CKD, recent history of CVA 4 months back, renal artery stenosis transferred from [facility] for acute on chronic heart failure. Patient had history of stroke 4 months back and was in rehab patient has been having progressive lower extremity edema for few days. Patient was advised to increase his Lasix from 20 to 40 mg and blood work was done which showed BNP 6214 and was advised to go to the ED. In [place] ED chest x-ray showed pulmonary vascular congestion with right-sided pleural effusion and EKG showed A-fib, patient was found to be hypertensive with blood pressure 190/68. Patient follows up with Dr. Bland who had scheduled right heart cath on 05/10/2025. Echo done today showed unable to obtain EF secondary to rhythm however it was preserved, severe RA and LA enlargement, moderate to severe , AR, mild MR and TR. 05/13/2025: Patient seen and evaluated at the bedside today, he is accompanied by his bedside nurse. Currently eating breakfast, appears in no acute distress, awake and alert. He remains on room air saturating 94 to 95%. Reportedly confused overnight. Blood pressure noted to be elevated in the 150's systolic, however he has not received morning antihypertensive medications yet. Otherwise, he denies chest pain, shortness of breath, palpitations, lightheaded or dizziness, or lower extremity edema. Plan to transition from IV Lasix to p.o. Plan to ambulate today. 12-24 hour telemetry reviewed: A fib 72-100 bpm. PAST MEDICAL HISTORY: Medical History[1] PAST SURGICAL HISTORY: Surgical History[2] FAMILY HISTORY: family history is not on file. SOCIAL HISTORY: Social History[3] REVIEW OF SYSTEMS: General: Denies fever, chills, fatigue, weight loss, or malaise. HENT: Head: Denies headache or dizziness. Eyes: Denies vision changes. Nose: Denies nasal congestion, discharge, or epistaxis. Throat: Denies pain or difficulty swallowing. Pulmonary: Denies shortness of breath, cough, wheezing, or hemoptysis. Cardiovascular: Denies chest pain, palpitations, dizziness, or syncope. Peripheral Vascular: Denies leg swelling, cold extremities or claudication. Abdomen: Denies abdominal pain, nausea, vomiting, diarrhea, constipation, or bloating. No changes in appetite. Neurological: Denies headaches, weakness, numbness, tingling, or difficulty with coordination. Skin: Denies rashes, lesions, or itching. ALLERGIES: Allergies[4] Objective 12-24 hour telemetry reviewed: A fib 72-100 bpm. CURRENT MEDS: aspirin, 81 mg, oral, Daily cholecalciferol, 1,000 Units, oral, Daily cloNIDine, 0.2 mg, oral, TID dapagliflozin propanediol, 10 mg, oral, Daily ezetimibe, 10 mg, oral, Daily furosemide, 40 mg, intravenous, q8h hydrALAZINE, 25 mg, oral, TID insulin lispro, 0-10 Units, subcutaneous, TID with meals And insulin lispro, 0-8 Units, subcutaneous, Nightly labetalol, 300 mg, oral, TID rivaroxaban, 20 mg, oral, Daily with evening meal spironolactone, 25 mg, oral, Daily PRN medications: acetaminophen, glucose OR dextrose 50 % in water (D50W), polyethylene glycol Patient Vitals for the past 24 hrs: BP Temp Temp src Pulse Resp SpO2 Weight 05/13/25 0800 151/55 36.4 ??C (97.5 ??F) Temporal 81 15 94 % -- 05/13/25 0425 -- -- -- -- -- -- 74.9 kg (165 lb 3.2 oz) 05/13/25 0400 (!) 135/92 36.2 ??C (97.2 ??F) Temporal 90 20 90 % -- 05/13/25 0004 125/54 36.8 ??C (98.2 ??F) Temporal 73 22 95 % -- 05/12/25 2154 149/69 -- -- 80 17 96 % -- 05/12/25 1935 144/62 36.6 ??C (97.9 ??F) Temporal 71 17 92 % -- 05/12/25 1800 112/60 -- -- 69 20 94 % -- 05/12/25 1637 155/61 -- -- -- -- -- -- 05/12/25 1200 123/61 36.5 ??C (97.7 ??F) Temporal 74 14 92 % -- BP 151/55 Pulse 81 Temp 36.4 ??C (97.5 ??F) (Temporal) Resp 15 Ht 1.828 m (5' 11.97 ) Wt 74.9 kg (165 lb 3.2 oz) SpO2 94% BMI 22.42 kg/m?? Wt Readings from Last 3 Encounters: 05/13/25 74.9 kg (165 lb 3.2 oz) PHYSICAL EXAM: General: Alert and oriented, Appears comfortable in no acute distress. HENT: Head: Normocephalic, atraumatic. Eyes: Conjunctiva clear, sclera anicteric. No periorbital edema. Nose: No nasal congestion or discharge. Throat: Mucous membranes moist and pink. Neck: Supple, no lymphadenopathy. No bruits. No jugular venous distension (JVD) at 45??. Pulmonary: Symmetrical chest rise, no accessory muscle use. Clear to auscultation bilaterally. No wheezes, rales, or rhonchi. No tenderness. Cardiovascular: RUSB murmur. Peripheral Vascular: Pulses (radial, dorsalis pedis, posterior tibial) 2+ bilaterally and symmetrical. No edema, cyanosis, or clubbing. Capillary refill <2 seconds. Abdomen: Flat, no visible pulsations or distension. Bowel sounds normoactive in all quadrants. Soft, non-tender, no masses or hepatosplenomegaly. Extremities: No cyanosis, clubbing, or edema. Warm to touch, full range of motion. No tenderness. Neurological: Alert and oriented to person, place, and time. Normal sensation in all extremities. Skin: Warm, dry, and intact. No rashes, lesions, pallor, or cyanosis. Capillary refill <2 seconds. No diaphoresis or ecchymosis. Relevant Lab Results: Lab Results Component Value Date WBC 10.18 05/13/2025 HGB 9.8 (L) 05/13/2025 HCT 31.3 (L) 05/13/2025 MCV 82.4 05/13/2025 PLT 287 05/13/2025 Lab Results Component Value Date NA 138 05/13/2025 K 3.5 05/13/2025 CL 99 05/13/2025 ANIONGAP 14 05/13/2025 BUN 32 (H) 05/13/2025 CREATININE 1.65 (H) 05/13/2025 CALCIUM 8.5 (L) 05/13/2025 MG 2.0 05/10/2025 Lab Results Component Value Date BILITOT 0.4 05/10/2025 ALKPHOS 72 05/10/2025 AST 14 05/10/2025 ALT 7 05/10/2025 PROT 6.2 05/10/2025 ALBUMIN 3.5 05/10/2025 Lab Results Component Value Date CHOLESTEROL 187 05/11/2025 TRIGLYCERIDES 93 05/11/2025 HDL 69 05/11/2025 LDL CALC 99 05/11/2025 Lab Results Component Value Date TSH 1.34 05/10/2025 No results found for: DIGOXIN LVL Lab Results Component Value Date HGBA1C 9.3 (H) 05/11/2025 No results found for: TROPONIN I , TROPONIN T , POC TROPONIN I , POC TROPONIN I. Lab Results Component Value Date BNP 736 (H) 05/10/2025 I have personally reviewed and analyzed the above laboratory results. These findings have been analyzed in the context of the patient's clinical presentation. Relevant Imaging Results / Cardiovascular Diagnostic Studies: No results found for this or any previous visit (from the past 4464 hours). Cardiac catheterization PROCEDURE PHYSICIAN: Shamar Nolan MD Clinical Presentation: 85 y.o. Male with history of A-fib on Xarelto, hypertension, HFpEF, CKD, recent history of CVA 4 months ago, renal artery stenosis transferred from [facility] for acute on chronic HFpEF and aortic stenosis. He presents for coronary angiogram and heart catheterization as part of the pre-TAVR workup. Final Impression: 1) coronary angiogram revealed moderate CAD 2) Echo showed severely decompensated heart failure with mean wedge pressure of 28 mmHg Plan: 1) optimal med therapy for CAD and HFpEF 2) further diuresis and optimization of HFpEF med therapy as tolerated Procedures Performed: coronary angiogram, right heart catheterization, conscious sedation 34 min, ultrasound guidance for vascular access Procedure Description: The patient was brought to the cardiac catheterization lab in a fasting state. Informed written consent was obtained. he was prepped and draped in usual sterile fashion over the left wrist and right neck and bilateral groins. Time-out was performed. he was given Versed and fentanyl for sedation. 1% lidocaine was infiltrated over the right internal jugular vein. Using ultrasound guidance and a micropuncture access technique a 6 Moldovan sheath was placed in the right internal jugular vein. The Garza catheter was advanced under fluoroscopic and hemodynamic monitoring to the right atrium. Pressure obtained of the right atrium, right ventricle, pulmonary artery, pulmonary capillary position. Oxygen saturation drawn for the pulmonary artery and Mary cardiac with a cardiac index were calculated. 1% lidocaine was infiltrated over the left radial artery. A 6-[place] Terumo Glidesheath slender was placed in left radial artery. Radial anti-vasospasm cocktail of verapamil 1.25 mg and nitroglycerin 100 mcg was administered through the sheath. All catheter exchanges were made over the Hendricks guidewire. Coronary angiogram was performed with a JL4 to engage the left main and a JR4 to engage the RCA. Coronary angiogram was performed in multiple orthogonal views. All catheters and wires were removed. The left radial sheath was removed and a TR band was applied to obtain hemostasis. The right internal jugular venous sheath was also removed and manual pressure applied for hemostasis. Specimens Removed: None Complications: None Hemodynamic Data: RA: 12 mmHg RV: 62/30 mmHg PA: 64/20 (41) mmHg PCWP: 28 mmHg (large V waves to 40 mmHg also noted, consistent with acute heart failure and/or mitral valve disease) AO: 133/55 (MAP 85) mmHg CO: 5.4 L/min CI: 2.7 L/min/m2 O2 Sat: PA sat: 64% AO sat: 99% Coronary Angiogram: Left main: The left main is a large vessel and is. Mid left main is 20% stenosis. The distal left main splits into 4 different branches including the LAD, ramus, and a high OM1 and a circumflex LAD: the ostial LAD has 30% stenosis. The mid LAD has a 50% stenosis. The remainder the LAD and diagonal branches are patent with luminal irregularities. RAMUS: patent with luminal irregularities LCX: The left circumflex is a moderate caliber vessel. The proximal to mid left circumflex is a diffuse 40% stenosis. The remainder of the circumflex is patent with luminal irregularities. RCA: The RCA is a large vessel and is dominant. The proximal RCA has 30% stenosis. Remainder the RCA is luminal irregularities but is otherwise patent. The right PDA and FELIPE are both patent. TTE 05/10/2025: Left Ventricle: The left ventricle is normal size. Global left ventricular systolic function is difficult to assess due to rhythm but appears preserved. Left ventricular wall thickness is increased. Right Ventricle: The right ventricle is normal in size. Normal right ventricular systolic function. Doppler studies suggest severely elevated right sided pressures. Left Atrium: The left atrium is severely enlarged. Mitral Valve: Mild mitral regurgitation. Aortic Valve: Mild aortic valve regurgitation. Moderate to severe aortic stenosis. Overall Conclusions: Doppler velocities may be underestimated due to rhythm. I have personally reviewed and analyzed all available cardiac diagnostic tests and imaging reports.Findings have been analyzed in the context of the patient's clinical status. ASSESSMENT & PLAN #HFpEF NYHA II Appears euvolemic Compensated Weight today is 165 pounds ---> 178 pounds on admission 05/10/2025 I's and O's: Net -6.2 L since admission, net -860 cc overnight Most recent TTE 05/10/2025: Left ventricular systolic function appears preserved. Mild MR, moderate to severe aortic stenosis. Right heart cath 05/11/25: PCWP 28 mmHg (large V waves to 40 mmHg also noted, consistent with acute heart failure and/or mitral valve disease) Left heart cath 05/11/25: Moderate CAD Most recent labs reviewed, 05/13/2025: Sodium 138, potassium 3.5, BUN 32, creatinine 1.65, glucose 206, calcium 8.5, EGFR 40.2, WBC 10.1, hemoglobin 9.8, platelets 287 GDMT limited by CKD: - Continue Farxiga 10 mg daily - Transitioning to oral Lasix 40 mg BID today - may consider increasing or adding midday dose if signs of congestion recur - Continue spironolactone 25 mg daily #Elevated troponin Denies chest pain Mildly elevated troponin most likely secondary to chronic myocardial injury Troponin 21--> 26 last on 05/10/2025 #Aortic stenosis Denies chest pain. Independent with ADLs and ambulates without SOB on flat ground, but reports HERNANDEZ with stair climbing. Moderate to severe aortic stenosis on 05/10/2025 TTE LHC/RHC 05/11/2025: Moderate CAD, PCWP 28 mmHg, normal cardiac index of 2.7. He was seen by CT surgery for aortic stenosis evaluation. He is not a current surgical candidate for aortic valve replacement and CT surgery recommends TAVR. This will be done outpatient. - Outpatient TAVR eval / workup #Paroxysmal A-fib [id number] = 5 (HTN, age, HF, CVA) Denies palpitations 12-24 hour telemetry reviewed: A fib 72-100 bpm. - Continue Xarelto 20 mg daily #Hypertension urgency Elevated Blood pressure this morning before medications 151/55, heart rate 81 - Continue clonidine 0.2 mg 3 times daily - Continue hydralazine 25 mg 3 times daily - Continue labetalol 300 mg 3 times daily - Continue spironolactone 25 mg daily #CAD Denies chest pain Moderate coronary artery disease on coronary angiogram 05/11/2025 - Continue aspirin 81 mg daily - Continue ezetimibe 10 mg daily #CVA Recent stroke #Renal artery stenosis Renal artery stenosis status post left renal artery stent 2014 #CKD Most recent labs reviewed, 05/13/2025: Sodium 138, potassium 3.5, BUN 32, creatinine 1.65, glucose 206, calcium 8.5, EGFR 40.2, WBC 10.1, hemoglobin 9.8, platelets 287 Plan Overview: Outpatient TAVR eval / workup ---> CTS recommends TAVR Transitioning to oral Lasix 40 mg BID today - may consider increasing or adding midday dose if signs of congestion recur Continue daily weights and strict I's and O's Continue to monitor electrolytes, renal function This note was partially composed using voice recognition software. While every effort was made to ensure accuracy, some unintentional telescope repairer errors may be present. Ruy Amanda, [facility] Cardiovascular Medicine [1] History reviewed. No pertinent past medical history. [2] History reviewed. No pertinent surgical history. [3] Social History Tobacco Use Smoking status: Former Types: Cigarettes Smokeless tobacco: Never [4] Allergies Allergen Reactions Aminolevulinic Acid Hcl Unknown Iodinated Contrast Media Unknown Nitroglycerin Other hypotension Simvastatin Unknown * Julio Cesar Medina MD - 05/12/2025 12:25 PM EDT Images from the original note were not included. [facility] Medicine Daily Progress Note - 05/12/2025 12:25 PM; Room: [address] [place] [address] Admission: 05/10/2025 2:37 AM; Length of stay: 2 days THE HOSPITALIST TEAM PREFERS TO USE [employer] FOR NON-URGENT COMMUNICATION 7AM- 7PM. IF I DO NOT RESPOND WITHIN 20 MINUTES OR URGENT MATTERS, PLEASE CALL THROUGH THE [facility] [employer]. FROM 7PM-7AM, PLEASE PAGE [phone](COVR). Code Status: Full Code Barriers to Discharge: Cardiac workup Expected Discharge Date: 1-2 days Discharge Destination: home Overview Patient is seen for evaluation and management of CHF and mild troponin elevations. Subjective Seen today in his room, alert and in no acute distress. Denies significant chest pain or shortness of breath Physical Exam Cardiovascular: Rate and Rhythm: Normal rate. Rhythm irregular. Pulses: Normal pulses. Heart sounds: Murmur can be heard in the right sternal border Pulmonary: Effort: Pulmonary effort is normal. Breath sounds: Normal breath sounds. Abdominal: General: Abdomen is flat. Palpations: Abdomen is soft. Musculoskeletal: Right lower leg: No edema. Left lower leg: No edema. Neurological: General: No focal deficit present. Visit Vitals BP 145/63 Pulse 85 Temp 36.4 ??C (97.5 ??F) (Temporal) Resp 13 Intake/Output Summary (Last 24 hours) at 05/12/2025 1225 Last data filed at 05/12/2025 1014 Gross per 24 hour Intake -- Output 3450 ml Net -3450 ml Estimated body mass index is 22.83 kg/m?? as calculated from the following: Height as of this encounter: 1.828 m (5' 11.97 ). Weight as of this encounter: 76.3 kg (168 lb 3.2 oz). Assessment and Plan Assessment & Plan Primary hypertension Continue current clonidine 0.2 3 times daily, hydralazine 25 3 times daily and labetalol Acute congestive heart failure (CMS/HCC) Acute on chronic heart failure with preserved EF BNP of 736 Echo 05/10 showed EF preserved. Moderate AAS and AR, mild MR and TR Cardiac cath was done on 05/11: Moderate coronary artery disease and wedge pressure of 28 with cardiac output of 5.4 L/min cardiac index of 2.7 L/min/m?? Echo was done and showed EF appear preserved. Moderate to severe aortic stenosis Lasix 40 IV every 8 hours Continue goal-directed medical therapy Farxiga, labetalol, Aldactone Farxiga and Aldactone were added. Patient also on labetalol Patient was evaluated by cardiothoracic team felt that patient undergo TAVR with possible PCI to LAD. CABG/AVR are too high to put proceed to recommend coronary artery bypass grafting/AVR specially with history of CVA History of CVA (cerebrovascular accident) On aspirin and Zetia Type 2 diabetes mellitus, with long-term current use of insulin ([facility]) Continue sliding scale insulin A1c came back of 9.3 Other hyperlipidemia Continue Zetia Chronic atrial fibrillation ([facility]) CHADS2 DS vascular score is 7 currently on Xarelto Patient already on labetalol Chronic kidney disease Not sure baseline kidney function, creatinine today 1.63 Elevated troponin Highest troponin went up to 26 Likely combination of chronic kidney disease and CHF History of recent CVA about 4 months ago History of renal artery stenosis status post left renal artery stent in 2014 VTE Prophylaxis: On Xarelto Scheduled Meds aspirin, 81 mg, oral, Daily cholecalciferol, 1,000 Units, oral, Daily cloNIDine, 0.2 mg, oral, TID dapagliflozin propanediol, 10 mg, oral, Daily ezetimibe, 10 mg, oral, Daily furosemide, 40 mg, intravenous, q8h guaiFENesin, 600 mg, oral, BID hydrALAZINE, 25 mg, oral, TID insulin lispro, 0-10 Units, subcutaneous, TID with meals And insulin lispro, 0-8 Units, subcutaneous, Nightly labetalol, 300 mg, oral, TID rivaroxaban, 20 mg, oral, Daily with evening meal spironolactone, 25 mg, oral, Daily Pertinent Investigations Hematology: Results from last 7 days Lab Units 05/11/25 0427 05/10/25 1051 05/10/25 0454 WBC AUTO 10*3/uL 11.58* -- 10.50 HEMOGLOBIN g/dL 9.9* -- 10.4* HEMATOCRIT % 31.8* -- 33.3* MCV fL 82.8 -- 82.2 PLATELETS AUTO 10*3/uL 312 349 311 Chemistry: Results from last 7 days Lab Units 05/12/25 0346 05/11/25 0427 05/10/25 0454 SODIUM mmol/L 138 140 139 POTASSIUM mmol/L 3.5 4.2 3.6 CHLORIDE mmol/L 99 101 101 CO2 mmol/L 29 28 26 BUN mg/dL 36* 31* 28* CREATININE mg/dL 1.63* 1.56* 1.45* GLUCOSE mg/dL 191* 237* 156* MAGNESIUM mg/dL -- -- 2.0 CALCIUM mg/dL 8.5* 8.4* 8.5* Results from last 7 days Lab Units 05/10/25 0454 AST U/L 14 ALT U/L 7 ALK PHOS U/L 72 BILIRUBIN TOTAL mg/dL 0.4 Results from last 7 days Lab Units 05/12/25 1123 05/12/25 0707 05/11/25 2102 05/11/25 1642 05/11/25 1135 05/11/25 0748 POCT GLUCOSE mg/dL 332* 214* 306* 348* 201* 224* Historical Values: (Includes values prior to this admission) Lab Results Component Value Date TSH 1.34 05/10/2025 HDL 69 05/11/2025 LDL 118 05/11/2025 No results found for: EVXBONIS05 , IRON , TIBC , C3 , C4 , SHERRY , CANCA , ASO , PSA , CEA , CA125 , CA199 , AFP , CA153 Imaging Cardiac catheterization PROCEDURE PHYSICIAN: Shamar Nolan MD Clinical Presentation: 85 y.o. Male with history of A-fib on Xarelto, hypertension, HFpEF, CKD, recent history of CVA 4 months ago, renal artery stenosis transferred from [facility] for acute on chronic HFpEF and aortic stenosis. He presents for coronary angiogram and heart catheterization as part of the pre-TAVR workup. Final Impression: 1) coronary angiogram revealed moderate CAD 2) Echo showed severely decompensated heart failure with mean wedge pressure of 28 mmHg Plan: 1) optimal med therapy for CAD and HFpEF 2) further diuresis and optimization of HFpEF med therapy as tolerated Procedures Performed: coronary angiogram, right heart catheterization, conscious sedation 34 min, ultrasound guidance for vascular access Procedure Description: The patient was brought to the cardiac catheterization lab in a fasting state. Informed written consent was obtained. he was prepped and draped in usual sterile fashion over the left wrist and right neck and bilateral groins. Time-out was performed. he was given Versed and fentanyl for sedation. 1% lidocaine was infiltrated over the right internal jugular vein. Using ultrasound guidance and a micropuncture access technique a 6 Moldovan sheath was placed in the right internal jugular vein. The Garza catheter was advanced under fluoroscopic and hemodynamic monitoring to the right atrium. Pressure obtained of the right atrium, right ventricle, pulmonary artery, pulmonary capillary position. Oxygen saturation drawn for the pulmonary artery and Mary cardiac with a cardiac index were calculated. 1% lidocaine was infiltrated over the left radial artery. A 6-Moldovan Terumo Glidesheath slender was placed in left radial artery. Radial anti-vasospasm cocktail of verapamil 1.25 mg and nitroglycerin 100 mcg was administered through the sheath. All catheter exchanges were made over the Hendricks guidewire. Coronary angiogram was performed with a JL4 to engage the left main and a JR4 to engage the RCA. Coronary angiogram was performed in multiple orthogonal views. All catheters and wires were removed. The left radial sheath was removed and a TR band was applied to obtain hemostasis. The right internal jugular venous sheath was also removed and manual pressure applied for hemostasis. Specimens Removed: None Complications: None Hemodynamic Data: RA: 12 mmHg RV: 62/30 mmHg PA: 64/20 (41) mmHg PCWP: 28 mmHg (large V waves to 40 mmHg also noted, consistent with acute heart failure and/or mitral valve disease) AO: 133/55 (MAP 85) mmHg CO: 5.4 L/min CI: 2.7 L/min/m2 O2 Sat: PA sat: 64% AO sat: 99% Coronary Angiogram: Left main: The left main is a large vessel and is. Mid left main is 20% stenosis. The distal left main splits into 4 different branches including the LAD, ramus, and a high OM1 and a circumflex LAD: the ostial LAD has 30% stenosis. The mid LAD has a 50% stenosis. The remainder the LAD and diagonal branches are patent with luminal irregularities. RAMUS: patent with luminal irregularities LCX: The left circumflex is a moderate caliber vessel. The proximal to mid left circumflex is a diffuse 40% stenosis. The remainder of the circumflex is patent with luminal irregularities. RCA: The RCA is a large vessel and is dominant. The proximal RCA has 30% stenosis. Remainder the RCA is luminal irregularities but is otherwise patent. The right PDA and FELIPE are both patent. Discharge Planning Expected Discharge Disposition: Longterm Facility (03) PT Discharge Recommendations: Patient is able to return to prior living environment (Presents from SNF) OT Discharge Recommendations: Patient is able to return to prior living environment Signed Julio Cesar Medina MD [facility] Medicine 05/12/2025 12:25 PM * Cathie Henson MD - 05/12/2025 11:40 AM EDT Images from the original note were not included. Cardiology Progress Note Subjective Patient was examined at the bedside. No acute events overnight. Underwent cath yesterday and showedmoderate CAD and had elevated PCWP of 28 mmHg. Objective Current Medications[1] Objective: Patient Vitals for the past 24 hrs: BP Temp Temp src Pulse Resp SpO2 Weight 05/12/25 1014 145/63 -- -- -- -- -- -- 05/12/25 0800 171/77 36.4 ??C (97.5 ??F) Temporal 85 13 93 % -- 05/12/25 0512 -- -- -- -- -- -- 76.3 kg (168 lb 3.2 oz) 05/12/25 0322 161/79 -- -- 80 13 98 % -- 05/12/25 0000 150/56 -- -- 70 13 97 % -- 05/11/25 2300 137/62 -- -- 64 12 97 % -- 05/11/25 2200 132/62 -- -- 66 12 96 % -- 05/11/25 2129 94/76 -- -- 68 14 96 % -- 05/11/25 2045 118/51 -- -- 74 21 96 % -- 05/11/252029 (!) 119/47 -- -- 74 11 96 % -- 05/11/252014 136/52 -- -- 71 14 98 % -- 05/11/252009 138/51 -- -- 88 18 95 % -- 05/11/25 1715 130/63 -- -- 88 23 -- -- 05/11/25 1615 124/57 -- -- 79 13 -- -- 05/11/25 1600 131/53 36.5 ??C (97.7 ??F) Temporal 80 12 97 % -- 05/11/25 1515 138/62 -- -- 83 18 -- -- 05/11/25 1500 140/56 -- -- 83 16 98 % -- 05/11/25 1330 140/64 -- -- 81 (!) 27 94 % -- 05/11/25 1315 (!) 165/93 -- -- 87 17 98 % -- 05/11/25 1300 163/68 -- -- 72 21 99 % -- 05/11/25 1245 148/58 -- -- 81 19 99 % -- 05/11/25 1230 148/62 -- -- 76 17 97 % -- 05/11/25 1215 131/69 -- -- 68 16 98 % -- 05/11/25 1200 145/61 -- -- 86 12 99 % -- 05/11/25 1145 151/68 -- -- 71 18 98 % -- Physical Examination: Physical Exam Cardiovascular: Rate and Rhythm: Normal rate. Rhythm irregular. Pulses: Normal pulses. Heart sounds: Murmur (Aortic ejection systolic murmur) heard. Pulmonary: Effort: Pulmonary effort is normal. Breath sounds: Normal breath sounds. Abdominal: General: Abdomen is flat. Palpations: Abdomen is soft. Musculoskeletal: Right lower leg: No edema. Left lower leg: No edema. Neurological: General: No focal deficit present. Relevant Lab Results No results found for this or any previous visit (from the past 4464 hours). No results found for: CKTOTAL , CKMB , CKMBINDEX , TROPONINI Complete Echo (TTE) w/wo Imaging Agent, Strain, 3D, Bubble Study Result Date: 05/10/2025 1 1 [facility] Heart Station [address] [place] [address] [phone] (fax) Echocardiogram-[facility] Name: NADIR BETH Study Date: 05/10/2025 09:19 AM B/P: 178 mmHg/92 mmHg HR: 104 bpm Date of : 1940 Location: [facility] Height: 72 in. Age: 85 year(s) Patient Room: 3122 Weight: 178 lb. Gender: Male Patient Status: InPt BSA: 2.03 m2 Indication: elevated troponins, dyspnea, ckd, Pericardial Effusion, Atrial Fibrillation Examination: Echocardiogram (Complete) Image Quality: Fair Patient Consent: Procedure explained to patient Conclusions Left Ventricle: The left ventricle is normal size. Global left ventricular systolic function is difficult to assess due to rhythm but appears preserved. Left ventricular wall thickness is increased. Right Ventricle: The right ventricle is normal in size. Normal right ventricular systolic function. Doppler studies suggest severely elevated right sided pressures. Left Atrium: The left atrium is severely enlarged. Mitral Valve: Mild mitral regurgitation. Aortic Valve: Mild aortic valve regurgitation. Moderate to severe aortic stenosis. Overall Conclusions: Doppler velocities may be underestimated due to rhythm. Measurements Left Ventricle Label Value Normal Value LVOTd 1.9 cm (19cm - 21cm) LVOT VTI 21 cm (18cm - 22cm) LVOT PGmax 3 mmHg LVDd, 2D 4.84 cm (4.2cm - 5.9cm) LVDs, 2D 3.74 cm (2.1cm - 4cm) IVSd, 2D 1.27 cm (0.6cm - 1.1cm) LVPWd, 2D 1.16 cm (0.6cm - 1cm) LV Mass, 2D ASE 225.96 g LV Mass Index, 2D ASE 111.3 g/m?? (50g/m?? - 102.4g/m??) RWT, MM 0.48 (0 - 0.42) LVSVI, 2D 24.6 ml/m2 LVOT PGmean 2 mmHg LVSV_LVOT 60 ml Right Ventricle Label Value Normal Value RVDd, 2D 4.14 cm (1.9cm - 3.8cm) TAPSE 1.47 cm Left Atrium Label Value Normal Value LA Volume, B P 134 ml (18ml - 58ml) LAESV index, BP 66 ml/m?? Right Atrium Label Value Normal Value RA Area 30.6cm?? Aortic Valve Label Value Normal Value AV DVI 0.29 AV VTI 61.5 cm Mitral Valve Label Value Normal Value MV E Vmax 1.1 m/s MV E/E' lateral 14.6 MV E' lateral 0.08 m/s Tricuspid Valve Label Value Normal Value RA Pressure 3 mmHg RVSP 73 mmHg Aorta Label Value Normal Value AoRoot, 2D 3.99 cm (1.4cm- 3.8cm) Great Vessels Label Value Normal Value IVC 2 cm (1.2cm - 2.3cm) Valvular Assessment LVOT 0.7 - 1.1 m/sec Aortic Valve 1.0 - 1.7 m/sec Mitral Valve 0.6 - 1.3 m/sec Tricuspid Valve 0.3 - 0.7 m/sec Pulmonic Valve 0.6 - 0.9 m/sec Regurgitation Mild Mild Mild No Stenosis ModS No No No Max Velocity 0.90 m/sec 3.06 m/s 1.10 m/sec 0.95 m/s Max Gradient 37.00 mmHg 4.00 mmHg Mean Gradient 20.00 mmHg Valve Area 0.8 cm?? Findings Left Ventricle: The left ventricle is normal size. Global left ventricular systolic function is difficult to assess due to rhythm but appears preserved. Left ventricular wall thickness is increased. Right Ventricle: The right ventricle is normal in size. Normal right ventricular systolic function. Doppler studies suggest severely elevated right sided pressures. LeftAtrium: The left atrium is severely enlarged. Right Atrium: The right atrium is severely enlarged. Mitral Valve: There is nonspecific thickening of the mitral valve leaflet. Mild mitral regurgitation. No mitral valve stenosis. There is mild to moderate mitral annular calcification. Aortic Valve: Severe aortic valve calcification is present. Mild aortic valve regurgitation. Moderate to severe aortic stenosis. Tricuspid Valve: Normal tricuspid valve. Mild tricuspid regurgitation. No tricuspid valve stenosis. Pulmonic Valve: Normal pulmonary valve. No pulmonary regurgitation. No pulmonic valve stenosis. Aorta: The aortic root exhibits mild dilatation. Great Vessels: IVC: The IVC is normal in size. Respiratory inspiration greater than 50%. Pericardium: There is a small pericardial effusion. Aleft pleural effusion is seen. Procedure Staff Reading Group: [facility] National Sales Representative: SEAN Bailey, RDCS Ordering Physician: ESTUARDO REED Electronically signed by MD Geri Delarosa on05/10/2025 at 10:24 AM No nuclear medicine results found for the past 12 months Relevant Imaging Results Cardiac catheterization PROCEDURE PHYSICIAN: Shamar Nolan MD Clinical Presentation: 85 y.o. Male with history of A-fib on Xarelto, hypertension, HFpEF, CKD, recent history of CVA 4 months ago, renal artery stenosis transferred from [facility] for acute on chronic HFpEF and aortic stenosis. He presents for coronary angiogram and heart catheterization as part of the pre-TAVR workup. Final Impression: 1) coronary angiogram revealed moderate CAD 2) Echo showed severely decompensated heart failure with mean wedge pressure of 28 mmHg Plan: 1) optimal med therapy for CAD and HFpEF 2) further diuresis and optimization of HFpEF med therapy as tolerated Procedures Performed: coronary angiogram, right heart catheterization, conscious sedation 34 min, ultrasound guidance for vascular access Procedure Description: The patient was brought to the cardiac catheterization lab in a fasting state. Informed written consent was obtained. he was prepped and draped in usual sterile fashion over the left wrist and right neck and bilateral groins. Time-out was performed. he was given Versed and fentanyl for sedation. 1% lidocaine was infiltrated over the right internal jugular vein. Using ultrasound guidance and a micropuncture access technique a 6 Moldovan sheath was placed in the right internal jugular vein. The Garza catheter was advanced under fluoroscopic and hemodynamic monitoring to the right atrium. Pressure obtained of the right atrium, right ventricle, pulmonary artery, pulmonary capillary position. Oxygen saturation drawn for the pulmonary artery and Mary cardiac with a cardiac index were calculated. 1% lidocaine was infiltrated over the left radial artery. A 6-Moldovan Terumo Glidesheath slender was placed in left radial artery. Radial anti-vasospasm cocktail of verapamil 1.25 mg and nitroglycerin 100 mcg was administered through the sheath. All catheter exchanges were made over the Hendricks guidewire. Coronary angiogram was performed with a JL4 to engage the left main and a JR4 to engage the RCA. Coronary angiogram was performed in multiple orthogonal views. All catheters and wires were removed. The left radial sheath was removed and a TR band was applied to obtain hemostasis. The right internal jugular venous sheath was also removed and manual pressure applied for hemostasis. Specimens Removed: None Complications: None Hemodynamic Data: RA: 12 mmHg RV: 62/30 mmHg PA: 64/20 (41) mmHg PCWP: 28 mmHg (large V waves to 40 mmHg also noted, consistent with acute heart failure and/or mitral valve disease) AO: 133/55 (MAP 85) mmHg CO: 5.4 L/min CI: 2.7 L/min/m2 O2 Sat: PA sat: 64% AO sat: 99% Coronary Angiogram: Left main: The left main is a large vessel and is. Mid left main is 20% stenosis. The distal left main splits into 4 different branches including the LAD, ramus, and a high OM1 and a circumflex LAD: the ostial LAD has 30% stenosis. The mid LAD has a 50% stenosis. The remainder the LAD and diagonal branches are patent with luminal irregularities. RAMUS: patent with luminal irregularities LCX: The left circumflex is a moderate caliber vessel. The proximal to mid left circumflex is a diffuse 40% stenosis. The remainder of the circumflex is patent with luminal irregularities. RCA: The RCA is a large vessel and is dominant. The proximal RCA has 30% stenosis. Remainder the RCA is luminal irregularities but is otherwise patent. The right PDA and FELIPE are both patent. ASSESSMENT Acute on chronic heart failure with preserved EF Echo 05/10 showed EF preserved difficult access secondary to rhythm, moderate to severe and AR, mild MR and TR RHC Hemodynamic Data: RA: 12 mmHg RV: 62/30 mmHg PA: 64/20 (41) mmHg PCWP: 28 mmHg (large V waves to 40 mmHg also noted, consistent with acute heart failure and/or mitral valve disease) AO: 133/55 (MAP 85) mmHg CO: 5.4 L/min CI: 2.7 L/min/m2 O2 Sat: PA sat: 64% AO sat: 99% Mildly elevated troponin most likely secondary to chronic myocardial injury Troponin 21--> 26 Nonrheumatic aortic valve stenosis Paroxysmal A-fib ([id number]) Hypertension Recent stroke History of renal artery stenosis status post left renal artery stent 2014 CKD PLAN Coronary angiogram showed moderate CAD. RHC showed PCWP 28 mmHg, normal cardiac index of 2.7. Continue diuresis with Lasix 40 Mg 3 times daily Consider cutting down tomorrow He was seen by CT surgery for aortic stenosis evaluation. He is not a current surgical candidate for aortic valve replacement and CT surgery recommends TAVR. This will be done outpatient. Resumed oral anticoagulation with Xarelto 20 Mg daily GDMT: Farxiga, labetalol and Aldactone, holding JAY/ARB's for history of renal artery stenosis Strict I&O's Remainder of care as per primary team and other consultative services Cardiology team will continue to follow This note was, at least in part, completed using a voice telescope repairer system. Every effort was made to ensure accuracy. However, inadvertent computerized telescope repairer errors may be present. Cathie Henson MD PGY-4 Manager [employer] [facility] Pager: [phone] [1] Current Facility-Administered Medications: acetaminophen (Tylenol) tablet 500 mg, 500 mg, oral, q6h PRN, Estuardo Reed MD, 500 mg at 05/10/25 1659 aspirin EC tablet 81 mg, 81 mg, oral, Daily, Estuardo Reed MD, 81 mg at 05/12/25 1014 cholecalciferol (Vitamin D-3) tablet 1,000 Units, 1,000 Units, oral, Daily, Estuardo Reed MD, 1,000 Units at 05/12/25 1014 cloNIDine (Catapres) tablet 0.2 mg, 0.2 mg, oral, TID, Cathie Henson MD, 0.2 mg at 05/12/25 1014 dapagliflozin propanediol (Farxiga) tablet 10 mg, 10 mg, oral, Daily, Estuardo Reed MD, 10 mg at05/12/25 1014 glucose chewable tablet 24 g, 24 g, oral, q15 min PRN OR dextrose 50 % in water (D50W) syringe 25 g, 25 g, intravenous, q15 min PRN, Estuardo Reed MD ezetimibe (Zetia) tablet 10 mg, 10 mg, oral, Daily, Estuardo Reed MD, 10 mg at 05/12/25 1014 furosemide (Lasix) injection 40 mg, 40 mg, intravenous, q8h, Cathie Henson MD guaiFENesin (Mucinex) 12 hr tablet 600 mg, 600 mg, oral, BID, Julio Cesar Medina MD, 600 mg at 05/12/25 1014 hydrALAZINE (Apresoline) tablet 25 mg, 25 mg, oral, TID, Estuardo Reed MD, 25 mg at 05/12/25 1014 insulin lispro (HumaLOG) injection 0-10 Units, 0-10 Units, subcutaneous, TID with meals, 4 Units at05/12/25 0857 AND insulin lispro (HumaLOG) injection 0-8 Units, 0-8 Units, subcutaneous, Nightly, Estuardo Reed MD, 6 Units at 05/11/25 2127 labetalol (Normodyne) tablet 300 mg, 300 mg, oral, TID, Cathie Henson MD, 300 mg at 05/12/25 1014 polyethylene glycol (Glycolax) packet 17 g, 17 g, oral, Daily PRN, Estuardo Reed MD rivaroxaban (Xarelto) tablet 20 mg, 20 mg, oral, Daily with evening meal, Cathie Henson MD spironolactone (Aldactone) tablet 25 mg, 25 mg, oral, Daily, Cathie Henson MD, 25 mg at 05/12/25 1014 Cosigned by Nicole Reyes MD at 05/12/2025 10:18 PM EDT Associated attestation - Nicole Reyes MD - 05/12/2025 10:18 PM EDT 05/12/25 By using the attestations below, the signing clinician agrees that I have read and verify that thedocumentation has been personally reviewed by me and ensure that the documentation accurately reflects the encounter. GC: I personally saw this patient on the day of the encounter, performed the stephenson portion(s) of the service and participated in the management and confirm the resident's documentation. Please note there may be an additional personal documentation from me. My additional comments are as follows: Agree with the detailed note below, particularly the aspect re: Aortic stenosis eval with CT surgery and structural team. He is more suitable for TAVR. Nicole Reyes MD, ScM, MSc Cardiac Heel Painter Email: [email or web address] Nicole Reyes MD, ScM, MSc Cardiac Heel Painter Email: [email or web address] * Julio Cesar Medina MD - 05/11/2025 4:14 PM EDT Images from the original note were not included. Hospital Medicine Daily Progress Note - 05/11/2025 4:14 PM; Room: [address] [place] [address] Admission: 05/10/2025 2:37 AM; Length of stay: 1 days THE HOSPITALIST TEAM PREFERS TO USE [employer] CHAT FOR NON-URGENT COMMUNICATION 7AM- 7PM. IF I DO NOT RESPOND WITHIN 20 MINUTES OR URGENT MATTERS, PLEASE CALL THROUGH THE [facility] [employer]. FROM 7PM-7AM, PLEASE PAGE [phone](COVR). Code Status: Full Code Barriers to Discharge: Cardiac workup Expected Discharge Date: 1-2 days Discharge Destination: home Overview Patient is seen for evaluation and management of CHF and mild troponin elevations. Subjective Seen today in his room, alert and in no acute distress. Denies significant chest pain or shortness of breath Physical Exam Cardiovascular: Rate and Rhythm: Normal rate. Rhythm irregular. Pulses: Normal pulses. Heart sounds: Murmur can be heard in the right sternal border Pulmonary: Effort: Pulmonary effort is normal. Breath sounds: Normal breath sounds. Abdominal: General: Abdomen is flat. Palpations: Abdomen is soft. Musculoskeletal: Right lower leg: No edema. Left lower leg: No edema. Neurological: General: No focal deficit present. Visit Vitals BP 140/64 Pulse 81 Temp 36.5 ??C (97.7 ??F) (Temporal) Resp (!) 27 Intake/Output Summary (Last 24 hours) at 05/11/2025 1614 Last data filed at 05/11/2025 1106 Gross per 24 hour Intake 253.27 ml Output 1210 ml Net -956.73 ml Estimated body mass index is 23.94 kg/m?? as calculated from the following: Height as of this encounter: 1.828 m (5' 11.97 ). Weight as of this encounter: 80 kg (176 lb 5.9 oz). Assessment and Plan Assessment & Plan Primary hypertension Continue current clonidine 0.2 3 times daily, hydralazine 25 3 times daily and labetalol Acute congestive heart failure ([facility]) Acute on chronic heart failure with preserved EF BNP of 736 Echo 05/10 showed EF preserved. Moderate AAS and AR, mild MR and TR Patient scheduled for cardiac cath today Lasix 40 IV every 8 hours Continue goal-directed medical therapy Farxiga, labetalol, Aldactone Uptitrate meds after Cardiac cath History of CVA (cerebrovascular accident) On aspirin statin with deconditioning and gait abnormality with fall risk PT OT to see him Type 2 diabetes mellitus, with long-term current use of insulin ([facility]) Insulin blood sugar check diet A1c came back of 9.3 Other hyperlipidemia Continue Zetia Chronic atrial fibrillation ([facility]) CHADS2 DS vascular score is 7 currently on Eliquis Patient on heparin drip and plan to switch on Eliquis after procedure Patient already on labetalol Chronic kidney disease Not sure baseline kidney function, creatinine today 1.56, will monitor Elevated troponin Highest troponin went up to 26 Likely combination of chronic kidney disease and CHF History of recent CVA about 4 months ago History of renal artery stenosis status post left renal artery stent in 2014 VTE Prophylaxis: IV heparin Scheduled Meds aspirin, 81 mg, oral, Daily cholecalciferol, 1,000 Units, oral, Daily cloNIDine, 0.2 mg, oral, TID dapagliflozin propanediol, 10 mg, oral, Daily ezetimibe, 10 mg, oral, Daily furosemide, 40 mg, intravenous, q8h guaiFENesin, 600 mg, oral, BID hydrALAZINE, 25 mg, oral, TID insulin lispro, 0-10 Units, subcutaneous, TID with meals And insulin lispro, 0-8 Units, subcutaneous, Nightly labetalol, 300 mg, oral, TID spironolactone, 25 mg, oral, Daily heparin, 0-28 Units/kg/hr, Last Rate: 16 Units/kg/hr (05/11/25 1500) Pertinent Investigations Hematology: Results from last 7 days Lab Units 05/11/25 0427 05/10/25 1051 05/10/25 0454 WBC AUTO 10*3/uL 11.58* -- 10.50 HEMOGLOBIN g/dL 9.9* -- 10.4* HEMATOCRIT % 31.8* -- 33.3* MCV fL 82.8 -- 82.2 PLATELETS AUTO 10*3/uL 312 349 311 Chemistry: Results from last 7 days Lab Units 05/11/25 0427 05/10/25 0454 SODIUM mmol/L 140 139 POTASSIUM mmol/L 4.2 3.6 CHLORIDE mmol/L 101 101 CO2 mmol/L 28 26 BUN mg/dL 31* 28* CREATININE mg/dL 1.56* 1.45* GLUCOSE mg/dL 237* 156* MAGNESIUM mg/dL -- 2.0 CALCIUM mg/dL 8.4* 8.5* Results from last 7 days Lab Units 05/10/25 0454 AST U/L 14 ALT U/L 7 ALK PHOS U/L 72 BILIRUBIN TOTAL mg/dL 0.4 Results from last 7 days Lab Units 05/11/25 1135 05/11/25 0748 05/10/25201205/10/25 1623 05/10/25 1117 05/10/25 0717 POCT GLUCOSE mg/dL 201* 224* 237* 159* 172* 186* Historical Values: (Includes values prior to this admission) Lab Results Component Value Date TSH 1.34 05/10/2025 HDL 69 05/11/2025 LDL 118 05/11/2025 No results found for: PRPUFLRK85 , IRON , TIBC , C3 , C4 , SHERRY , CANCA , ASO , PSA , CEA , CA125 , CA199 , AFP , CA153 Imaging Complete Echo (TTE) w/wo Imaging Agent, Strain, 3D, Bubble Study 1 1 [facility] Heart Station [address] [place] [address] [phone] (fax) Echocardiogram-[facility] Name: NADIR BETH Study Date: 05/10/2025 09:19 AM B/P: 178 mmHg/92 mmHg HR: 104 bpm Date of : 1940 Location: [facility] Height: 72 in. Age: 85 year(s) Patient Room: 3122 Weight: 178 lb. Gender: Male Patient Status: InPt BSA: 2.03 m2 Indication: elevated troponins, dyspnea, ckd, Pericardial Effusion, Atrial Fibrillation Examination: Echocardiogram (Complete) Image Quality: Fair Patient Consent: Procedure explained to patient Conclusions Left Ventricle: The left ventricle is normal size. Global left ventricular systolic function is difficult to assess due to rhythm but appears preserved. Left ventricular wall thickness is increased. Right Ventricle: The right ventricle is normal in size. Normal right ventricular systolic function. Doppler studies suggest severely elevated right sided pressures. Left Atrium: The left atrium is severely enlarged. Mitral Valve: Mild mitral regurgitation. Aortic Valve: Mild aortic valve regurgitation. Moderate to severe aortic stenosis. Overall Conclusions: Doppler velocities may be underestimated due to rhythm. Measurements Left Ventricle Label Value Normal Value LVOTd 1.9 cm (19cm - 21cm) LVOT VTI 21 cm (18cm - 22cm) LVOT PGmax 3 mmHg LVDd, 2D 4.84 cm (4.2cm - 5.9cm) LVDs, 2D 3.74 cm (2.1cm - 4cm) IVSd, 2D 1.27 cm (0.6cm - 1.1cm) LVPWd, 2D 1.16 cm (0.6cm - 1cm) LV Mass, 2D ASE 225.96 g LV Mass Index, 2D ASE 111.3 g/m?? (50g/m?? - 102.4g/m??) RWT, MM 0.48 (0 - 0.42) LVSVI, 2D 24.6 ml/m2 LVOT PGmean 2 mmHg LVSV_LVOT 60 ml Right Ventricle Label Value Normal Value RVDd, 2D 4.14 cm (1.9cm - 3.8cm) TAPSE 1.47 cm Left Atrium Label Value Normal Value LA Volume, BP 134 ml (18ml - 58ml) LAESV index, BP 66 ml/m?? Right Atrium Label Value Normal Value RA Area 30.6 cm?? Aortic Valve Label Value Normal Value AV DVI 0.29 AV VTI 61.5 cm Mitral Valve Label Value Normal Value MV E Vmax 1.1 m/s MV E/E' lateral 14.6 MV E' lateral 0.08 m/s Tricuspid Valve Label Value Normal Value RA Pressure 3 mmHg RVSP 73 mmHg Aorta Label Value Normal Value AoRoot, 2D 3.99 cm (1.4cm - 3.8cm) Great Vessels Label Value Normal Value IVC 2 cm (1.2cm - 2.3cm) Valvular Assessment LVOT 0.7 - 1.1 m/sec Aortic Valve 1.0 - 1.7 m/sec Mitral Valve 0.6 - 1.3 m/sec Tricuspid Valve 0.3 - 0.7 m/sec Pulmonic Valve 0.6 - 0.9 m/sec Regurgitation Mild Mild Mild No Stenosis ModS No No No Max Velocity 0.90 m/sec 3.06 m/s 1.10 m/sec 0.95 m/s Max Gradient 37.00 mmHg 4.00 mmHg Mean Gradient 20.00 mmHg Valve Area 0.8 cm?? Findings Left Ventricle: The left ventricle is normal size. Global left ventricular systolic function is difficult to assess due to rhythm but appears preserved. Left ventricular wall thickness is increased. Right Ventricle: The right ventricle is normal in size. Normal right ventricular systolic function. Doppler studies suggest severely elevated right sided pressures. Left Atrium: The left atrium is severely enlarged. Right Atrium: The right atrium is severely enlarged. Mitral Valve: There is nonspecific thickening of the mitral valve leaflet. Mild mitral regurgitation. No mitral valve stenosis. There is mild to moderate mitral annular calcification. Aortic Valve: Severe aortic valve calcification is present. Mild aortic valve regurgitation. Moderate to severe aortic stenosis. Tricuspid Valve: Normal tricuspid valve. Mild tricuspid regurgitation. No tricuspid valve stenosis. Pulmonic Valve: Normal pulmonary valve. No pulmonary regurgitation. No pulmonic valve stenosis. Aorta: The aortic root exhibits mild dilatation. Great Vessels: IVC: The IVC is normal in size. Respiratory inspiration greater than 50%. Pericardium: There is a small pericardial effusion. A left pleural effusion is seen. Procedure Staff Reading Group: [facility] National Sales Representative: SEAN Bailey, RDCS Ordering Physician: ESTUARDO REED Discharge Planning Expected Discharge Disposition: Longterm Facility (03) PT Discharge Recommendations: Patient is able to return to prior living environment (Presents from SNF) OT Discharge Recommendations: Patient is able to return to prior living environment Signed Julio Cesar Medina MD [facility] Medicine 05/11/2025 4:14 PM * Paradise Garrison - 05/11/2025 3:05 PM EDT discharge planning: to return to [facility] Nursing [facility] updates sent to [facility], via [employer] system discharge barriers: [] no insurance precert needed for any placement from this admission, but confirm bed still available before discharge [] * Stevie Nuñez MD - 05/11/2025 10:22 AM EDT Images from the original note were not included. Cardiology Progress Note Subjective Patient was examined at the bedside. No acute events overnight. Patient scheduled for cardiac cath today. Objective Current Medications[1] Objective: Patient Vitals for the past 24 hrs: BP Temp Temp src Pulse Resp SpO2 Weight 05/11/25 0800 149/57 36.5 ??C (97.7 ??F) Temporal 72 14 97 % -- 05/11/25 0600 138/54 -- -- 75 11 98 % -- 05/11/25 0547 -- -- -- -- -- -- 80 kg (176 lb 5.9 oz) 05/11/25 0400 147/61 36.6 ??C (97.9 ??F) -- 82 14 98 % -- 05/11/25 0200 135/60 -- -- 82 12 97 % -- 05/11/25 0000 127/50 36.5 ??C (97.7 ??F) -- 78 13 95 % -- 05/10/25 1738 134/60 -- -- 71 13 97 % -- 05/10/25 1647 146/71 -- -- -- -- -- -- 05/10/25 1600 146/71 -- -- 73 16 99 % -- 05/10/25 1211 156/71 36.5 ??C (97.7 ??F) Temporal 75 13 95 % -- Physical Examination: Physical Exam Cardiovascular: Rate and Rhythm: Normal rate. Rhythm irregular. Pulses: Normal pulses. Heart sounds: Murmur (Aortic ejection systolic murmur) heard. Pulmonary: Effort: Pulmonary effort is normal. Breath sounds: Normal breath sounds. Abdominal: General: Abdomen is flat. Palpations: Abdomen is soft. Musculoskeletal: Right lower leg: No edema. Left lower leg: No edema. Neurological: General: No focal deficit present. Relevant Lab Results No results found for this or any previous visit (from the past 4464 hours). No results found for: CKTOTAL , CKMB , CKMBINDEX , TROPONINI Complete Echo (TTE) w/wo Imaging Agent, Strain, 3D, Bubble Study Result Date: 05/10/2025 1 1 [facility] Heart Station [address] [place] [address] [phone] (fax) Echocardiogram-[facility] Name: NADIR BETH Study Date: 05/10/2025 09:19 AM B/P: 178 mmHg/92 mmHg HR: 104 bpm Date of : 1940 Location: [facility] Height: 72 in. Age: 85 year(s) Patient Room: 3122 Weight: 178 lb. Gender: Male Patient Status: InPt BSA: 2.03 m2 Indication: elevated troponins, dyspnea, ckd, Pericardial Effusion, Atrial Fibrillation Examination: Echocardiogram (Complete) Image Quality: Fair Patient Consent: Procedure explained to patient Conclusions Left Ventricle: The left ventricle is normal size. Global left ventricular systolic function is difficult to assess due to rhythm but appears preserved. Left ventricular wall thickness is increased. Right Ventricle: The right ventricle is normal in size. Normal right ventricular systolic function. Doppler studies suggest severely elevated right sided pressures. Left Atrium: The left atrium is severely enlarged. Mitral Valve: Mild mitral regurgitation. Aortic Valve: Mild aortic valve regurgitation. Moderate to severe aortic stenosis. Overall Conclusions: Doppler velocities may be underestimated due to rhythm. Measurements Left Ventricle Label Value Normal Value LVOTd 1.9 cm (19cm - 21cm) LVOT VTI 21 cm (18cm - 22cm) LVOT PGmax 3 mmHg LVDd, 2D 4.84 cm (4.2cm - 5.9cm) LVDs, 2D 3.74 cm (2.1cm - 4cm) IVSd, 2D 1.27 cm (0.6cm - 1.1cm) LVPWd, 2D 1.16 cm (0.6cm - 1cm) LV Mass, 2D ASE 225.96 g LV Mass Index, 2D ASE 111.3 g/m?? (50g/m?? - 102.4g/m??) RWT, MM 0.48 (0 - 0.42) LVSVI, 2D 24.6 ml/m2 LVOT PGmean 2 mmHg LVSV_LVOT 60 ml Right Ventricle Label Value Normal Value RVDd, 2D 4.14 cm (1.9cm - 3.8cm) TAPSE 1.47 cm Left Atrium Label Value Normal Value LA Volume, B P 134 ml (18ml - 58ml) LAESV index, BP 66 ml/m?? Right Atrium Label Value Normal Value RA Area 30.6cm?? Aortic Valve Label Value Normal Value AV DVI 0.29 AV VTI 61.5 cm Mitral Valve Label Value Normal Value MV E Vmax 1.1 m/s MV E/E' lateral 14.6 MV E' lateral 0.08 m/s Tricuspid Valve Label Value Normal Value RA Pressure 3 mmHg RVSP 73 mmHg Aorta Label Value Normal Value AoRoot, 2D 3.99 cm (1.4cm- 3.8cm) Great Vessels Label Value Normal Value IVC 2 cm (1.2cm - 2.3cm) Valvular Assessment LVOT 0.7 - 1.1 m/sec Aortic Valve 1.0 - 1.7 m/sec Mitral Valve 0.6 - 1.3 m/sec Tricuspid Valve 0.3 - 0.7 m/sec Pulmonic Valve 0.6 - 0.9 m/sec Regurgitation Mild Mild Mild No Stenosis ModS No No No Max Velocity 0.90 m/sec 3.06 m/s 1.10 m/sec 0.95 m/s Max Gradient 37.00 mmHg 4.00 mmHg Mean Gradient 20.00 mmHg Valve Area 0.8 cm?? Findings Left Ventricle: The left ventricle is normal size. Global left ventricular systolic function is difficult to assess due to rhythm but appears preserved. Left ventricular wall thickness is increased. Right Ventricle: The right ventricle is normal in size. Normal right ventricular systolic function. Doppler studies suggest severely elevated right sided pressures. LeftAtrium: The left atrium is severely enlarged. Right Atrium: The right atrium is severely enlarged. Mitral Valve: There is nonspecific thickening of the mitral valve leaflet. Mild mitral regurgitation. No mitral valve stenosis. There is mild to moderate mitral annular calcification. Aortic Valve: Severe aortic valve calcification is present. Mild aortic valve regurgitation. Moderate to severe aortic stenosis. Tricuspid Valve: Normal tricuspid valve. Mild tricuspid regurgitation. No tricuspid valve stenosis. Pulmonic Valve: Normal pulmonary valve. No pulmonary regurgitation. No pulmonic valve stenosis. Aorta: The aortic root exhibits mild dilatation. Great Vessels: IVC: The IVC is normal in size. Respiratory inspiration greater than 50%. Pericardium: There is a small pericardial effusion. Aleft pleural effusion is seen. Procedure Staff Reading Group: [facility] National Sales Representative: SEAN Bailey, RDCS Ordering Physician: ESTUARDO REED Electronically signed by MD Geri Delarosa on05/10/2025 at 10:24 AM No nuclear medicine results found for the past 12 months Relevant Imaging Results Complete Echo (TTE) w/wo Imaging Agent, Strain, 3D, Bubble Study 1 1 [facility] Heart Station [address] [place] [address] [phone] (fax) Echocardiogram-[facility] Name: NADIR BETH Study Date: 05/10/2025 09:19 AM B/P: 178 mmHg/92 mmHg HR: 104 bpm Date of : 1940 Location: [facility] Height: 72 in. Age: 85 year(s) Patient Room: 3122 Weight: 178 lb. Gender: Male Patient Status: InPt BSA: 2.03 m2 Indication: elevated troponins, dyspnea, ckd, Pericardial Effusion, Atrial Fibrillation Examination: Echocardiogram (Complete) Image Quality: Fair Patient Consent: Procedure explained to patient Conclusions Left Ventricle: The left ventricle is normal size. Global left ventricular systolic function is difficult to assess due to rhythm but appears preserved. Left ventricular wall thickness is increased. Right Ventricle: The right ventricle is normal in size. Normal right ventricular systolic function. Doppler studies suggest severely elevated right sided pressures. Left Atrium: The left atrium is severely enlarged. Mitral Valve: Mild mitral regurgitation. Aortic Valve: Mild aortic valve regurgitation. Moderate to severe aortic stenosis. Overall Conclusions: Doppler velocities may be underestimated due to rhythm. Measurements Left Ventricle Label Value Normal Value LVOTd 1.9 cm (19cm - 21cm) LVOT VTI 21 cm (18cm - 22cm) LVOT PGmax 3 mmHg LVDd, 2D 4.84 cm (4.2cm - 5.9cm) LVDs, 2D 3.74 cm (2.1cm - 4cm) IVSd, 2D 1.27 cm (0.6cm - 1.1cm) LVPWd, 2D 1.16 cm (0.6cm - 1cm) LV Mass, 2D ASE 225.96 g LV Mass Index, 2D ASE 111.3 g/m?? (50g/m?? - 102.4g/m??) RWT, MM 0.48 (0 - 0.42) LVSVI, 2D 24.6 ml/m2 LVOT PGmean 2 mmHg LVSV_LVOT 60 ml Right Ventricle Label Value Normal Value RVDd, 2D 4.14 cm (1.9cm - 3.8cm) TAPSE 1.47 cm Left Atrium Label Value Normal Value LA Volume, BP 134 ml (18ml - 58ml) LAESV index, BP 66 ml/m?? Right Atrium Label Value Normal Value RA Area 30.6 cm?? Aortic Valve Label Value Normal Value AV DVI 0.29 AV VTI 61.5 cm Mitral Valve Label Value Normal Value MV E Vmax 1.1 m/s MV E/E' lateral 14.6 MV E' lateral 0.08 m/s Tricuspid Valve Label Value Normal Value RA Pressure 3 mmHg RVSP 73 mmHg Aorta Label Value Normal Value AoRoot, 2D 3.99 cm (1.4cm - 3.8cm) Great Vessels Label Value Normal Value IVC 2 cm (1.2cm - 2.3cm) Valvular Assessment LVOT 0.7 - 1.1 m/sec Aortic Valve 1.0 - 1.7 m/sec Mitral Valve 0.6 - 1.3 m/sec Tricuspid Valve 0.3 - 0.7 m/sec Pulmonic Valve 0.6 - 0.9 m/sec Regurgitation Mild Mild Mild No Stenosis ModS No No No Max Velocity 0.90 m/sec 3.06 m/s 1.10 m/sec 0.95 m/s Max Gradient 37.00 mmHg 4.00 mmHg Mean Gradient 20.00 mmHg Valve Area 0.8 cm?? Findings Left Ventricle: The left ventricle is normal size. Global left ventricular systolic function is difficult to assess due to rhythm but appears preserved. Left ventricular wall thickness is increased. Right Ventricle: The right ventricle is normal in size. Normal right ventricular systolic function. Doppler studies suggest severely elevated right sided pressures. Left Atrium: The left atrium is severely enlarged. Right Atrium: The right atrium is severely enlarged. Mitral Valve: There is nonspecific thickening of the mitral valve leaflet. Mild mitral regurgitation. No mitral valve stenosis. There is mild to moderate mitral annular calcification. Aortic Valve: Severe aortic valve calcification is present. Mild aortic valve regurgitation. Moderate to severe aortic stenosis. Tricuspid Valve: Normal tricuspid valve. Mild tricuspid regurgitation. No tricuspid valve stenosis. Pulmonic Valve: Normal pulmonary valve. No pulmonary regurgitation. No pulmonic valve stenosis. Aorta: The aortic root exhibits mild dilatation. Great Vessels: IVC: The IVC is normal in size. Respiratory inspiration greater than 50%. Pericardium: There is a small pericardial effusion. A left pleural effusion is seen. Procedure Staff Reading Group: [facility] National Sales Representative: SEAN Bailey, RDCS Ordering Physician: ESTUARDO REED SSMENT Acute on chronic heart failure with preserved EF Echo 05/10 showed EF preserved difficult access secondary to rhythm, moderate to severe and AR, mild MR and TR Mildly elevated troponin most likely secondary to chronic myocardial injury Troponin 21--> 26 Nonrheumatic aortic valve stenosis Paroxysmal A-fib ([id number]) Hypertension Recent stroke History of renal artery stenosis status post left renal artery stent 2014 CKD PLAN Right heart cath today for aortic stenosis work up Will adjust diuretics after obtaining right heart cath results GDMT: Farxiga, labetalol and Aldactone, holding JAY/ARB's for history of renal artery stenosis Strict I&O's Remainder of care as per primary team and other consultative services Cardiology team will continue to follow This note was, at least in part, completed using a voice telescope repairer system. Every effort was made to ensure accuracy. However, inadvertent computerized telescope repairer errors may be present. Stevie Nuñez MD PGY-2 Internal Medicine Cardiology Consult Service [facility] [1] Current Facility-Administered Medications: acetaminophen (Tylenol) tablet 500 mg, 500 mg, oral, q6h PRN, Estuardo Reed MD, 500 mg at 05/10/25 1659 aspirin EC tablet 81 mg, 81 mg, oral, Daily, Estuardo Reed MD, 81 mg at 05/11/25 0900 cholecalciferol (Vitamin D-3) tablet 1,000 Units, 1,000 Units, oral, Daily, Estuardo Reed MD, 1,000 Units at 05/11/25 0900 cloNIDine (Catapres) tablet 0.2 mg, 0.2 mg, oral, TID, Cathie Henson MD, 0.2 mg at 05/11/25 0900 dapagliflozin propanediol (Farxiga) tablet 10 mg, 10 mg, oral, Daily, Estuardo Reed MD, 10 mg at05/11/25 0900 glucose chewable tablet 24 g, 24 g, oral, q15 min PRN OR dextrose 50 % in water (D50W) syringe 25 g, 25 g, intravenous, q15 min PRN, Estuardo Reed MD ezetimibe (Zetia) tablet 10 mg, 10 mg, oral, Daily, Estuardo Reed MD, 10 mg at 05/11/25 0900 furosemide (Lasix) injection 40 mg, 40 mg, intravenous, q8h, Cathie Henson MD, 40 mg at 05/11/25 0505 heparin infusion 100 units/mL in D5W, 0-28 Units/kg/hr, intravenous, Continuous, Cathie Henson MD, Last Rate: 13 mL/hr at 05/11/25 1017, 16 Units/kg/hr at 05/11/25 1017 hydrALAZINE (Apresoline) tablet 25 mg, 25 mg, oral, TID, Estuardo Reed MD, 25 mg at 05/11/25 0900 insulin lispro (HumaLOG) injection 0-10 Units, 0-10 Units, subcutaneous, TID with meals, 4 Units at05/11/25 0859 AND insulin lispro (HumaLOG) injection 0-8 Units, 0-8 Units, subcutaneous, Nightly, Estuardo Reed MD, 2 Units at 05/10/25 2148 labetalol (Normodyne) tablet 300 mg, 300 mg, oral, TID, Cathie Henson MD, 300 mg at 05/11/25 0903 polyethylene glycol (Glycolax) packet 17 g, 17 g, oral, Daily PRN, Estuardo Reed MD spironolactone (Aldactone) tablet 25 mg, 25 mg, oral, Daily, Cathie Henson MD, 25 mg at 05/11/25 0900 Cosigned by Azeem Green MD at 05/11/2025 4:45 PM EDT Associated attestation - Azeem Green MD - 05/11/2025 4:45 PM EDT I personally saw and examined the patient on rounds and agree with the assessment and plan of the medical insurance coder * Landen Buttjossue, PT - 05/11/2025 10:19 AM EDT Physical Therapy Physical Therapy Treatment Patient Name: Nadir Beth : 1940 Today's Date: 05/11/2025 Problem List[1] Start Time: 916 Stop Time: 941 Time Calculation (min): 25 min PT Therapeutic Procedures Time Entry Therapeutic Activity Time Entry: 10 Therapeutic Exercise Time Entry: 15 Objective General Visit Information: PT Last Visit PT Received On: 05/11/25 General Family/Caregiver Present: No Subjective: RN approved PT session and OOB activity this date. In bed upon arrival, agreeable to session. Upon completion, patient left in the chair with call light within reach, RN aware Vision - Basic Vision - Basic Assessment Current Vision: Wears glasses all the time Vision - Complex Precautions Precautions Medical Precautions: fall risk, Purewick, oxygen, telemetry, IV (2L O2) Pain Pain Assessment Pain Assessment: No/denies pain Pain Score: 0 - No pain Cognition Cognition Overall Cognitive Status: Within Functional Limits Arousal/Alertness: Appropriate responses to stimuli Following Commands: Follows one step commands with increased time General Assessment General Assessment Hearing: Mild ROSEBUD Hand Dominance: Right Static Sitting Balance Static Sitting Balance Static Sitting-Balance Support: Feet supported Static Sitting-Level of Assistance: Independent Dynamic Sitting Balance Dynamic Sitting Balance Dynamic Sitting-Balance Support: Right upper extremity supported, Left upper extremity supported, Feet supported Dynamic Sitting-Balance: Lateral lean, Forward lean Dynamic Sitting Balance-Level of Assistance: Close supervision Static Standing Balance Static Standing Balance Static Standing-Balance Support: With device (RW) Static Standing-Level of Assistance: Close supervision Dynamic Standing Balance Dynamic Standing Balance Dynamic Standing-Balance Support: With device (RW) Dynamic Standing Balance-Level of Assistance: Contact guard General Assessments: Activity Tolerance Endurance: Stage III Cognition Overall Cognitive Status: Within Functional Limits Arousal/Alertness: Appropriate responses to stimuli Following Commands: Follows one step commands with increased time Treatment: Therapeutic Exercise Therapeutic Exercise Time Entry: 15 Therapeutic Exercise Activity 1: Seated BLE exercise including: BLE seated marches, LAQ, ankle pumps x10 repetitions. Therapeutic Exercise Activity 2: Standing calf raises with use of RW for support x10 Ambulation Ambulation: Yes Ambulation 1 Surface 1: Level tile Device 1: Rolling walker Assistance 1: Close supervision Quality of Gait 1: Mild fwd flexed posture with short step length. No significant bouts of instability or LOB Comments/Distance (ft) 1: 30 ft x2 Bed Mobility Bed Mobility: Yes Bed Mobility 1 Bed Mobility From 1: Supine Bed Mobility Type 1: To Bed Mobility to 1: Short sit Level of Assistance 1: Minimum assistance Bed Mobility Comments 1: Primarily CGA though did require Min (A) X1 to scoot forward to proper position at EOB. HOB elevated ~30 degrees Transfers Transfer: Yes Transfer 1 Technique 1: Sit to stand, Stand to sit (From EOB as well as from bedside chair) Transfer Device 1: rolling walker Transfer Level of Assistance 1: Contact guard Trials/Comments 1: Verbal cues for anterior weight shift and fwd lean to assist with positioning. CGA required Treatment Comments: Tolerated session well today, mild SOB with ambulation this morning completed on room air, oxygen saturation 90% upon returning to chair. Outcome Assessments 6 Clicks (Mobility) Help from another person turning from your back to your side while in a flat bed without using bedrails: None Help from another person moving from lying on your back to sitting on the side of a flat bed without using bedrails: A little Help from another person moving to and from a bed to a chair (including a wheelchair): A little Help from another person standing up from a chair using your arms (e.g. wheelchair or bedside chair): A little Help from another person to walk in hospital room: A little Help from another person climbing 3-5 steps with a railing: A lot Mobility 6 Clicks T-Score: 18 Assessment/Plan PT Assessment PT Assessment/PROJECT CONSTRUCTION MANAGER Summary: Patient is a 85 y/o male presenting with impaired strength/functional independence. Will continue to benefit from additional skilled PT services to maximize safety/indepeneence. Prognosis: Good Evaluation/Treatment Tolerance: Patient tolerated treatment well Plan Level of assist: 1 assist PT Discharge Recommendations: Patient is able to return to prior living environment (Presents from SNF) Equipment Recommended: none Goals: Multi-Disciplinary Problems (from Physical Therapy) Active Problems Problem: Balance Start Date: 05/10/25 Goal Start Date Expected End Date End Date LTG - Patient will maintain standing and sitting balance to allow for completion of daily activities 05/10/25 05/24/25 -- Problem: Mobility Start Date: 05/10/25 Goal Start Date Expected End Date End Date LTG - Patient will ambulate at least 100 feet with stand-by/contact guard using least restrictive device to improve tolerance to activity 05/10/25 05/24/25 -- Problem: Transfers Start Date: 05/10/25 Goal Start Date Expected End Date End Date LTG - Patient will complete all transfers with stand-by/contact guard using least restrictive device to improve functional independence 05/10/25 05/24/25 -- Goal Start Date Expected End Date End Date LTG - Patient will perform all bed mobility with no assistance to improve functional independence 05/10/25 05/24/25 -- Problem: PT Misc Start Date: 05/10/25 Goal Start Date Expected End Date End Date Patient will participate in at least 25 minutes of physical activity to improve tolerance to activity 05/10/25 05/24/25 -- Goal Start Date Expected End Date End Date Patient will participate in strength training to maintain functional strength required for independent mobility. 05/10/25 05/24/25 -- [1] Patient Active Problem List Diagnosis Primary hypertension Acute congestive heart failure (CMS/HCC) History of CVA (cerebrovascular accident) Type 2 diabetes mellitus, with long-term current use of insulin (CMS/HCC) Other hyperlipidemia Chronic atrial fibrillation (CMS/HCC) Chest pain Angina pectoris, unstable (CMS/HCC) * Chantal Arizmendirer, SPT - 05/10/2025 3:45 PM EDT Physical Therapy Physical Therapy Evaluation Patient Name: Nadir Beth : 1940 Today's Date: 05/10/2025 Start Time: 1432 Stop Time: 1504 Time Calculation (min): 32 min PT Evaluation Time Entry PT Evaluation (Moderate) Time Entry: 32 General Subjective: Patient lying supine in bed upon arrival and was agreeable to session. Patient reportedfeeling slightly dizzy when sitting EOB that improved with time. Required Greg to stand from EOB with RW and SBA during ambulation with RW. Completed session supine in bed. Patient Summary: Patient is an 85 y/o male admitted 05/10/25 from [facility] where he presented following outpatient labs done by his PCP which included high BNP and progressive lower extremityedema. Chest x-ray showed pulmonary vascular congestion with right-sided pleural effusion and EKG showed A-fib. PMH CVA 4 months ago. PT Diagnosis: Decreased tolerance to activity Problem List[1] Medical History[2] Surgical History[3] Precautions Precautions Medical Precautions: fall risk, Purewick, IV, oxygen, bed alarm, telemetry (2L O2) Pain Pain Assessment Pain Assessment: No/denies pain Pain Score: 0 - No pain Cognition Cognition Overall Cognitive Status: Within Functional Limits Arousal/Alertness: Appropriate responses to stimuli Orientation Level: Oriented to person Following Commands: Follows one step commands without difficulty Safety Judgment: Decreased awareness of need for assistance Awareness of Errors: Good awareness of errors made Deficits: Decreased awareness of deficits Attention Span: Appears intact Memory: Appears intact Problem Solving: Assistance required to generate solutions Communication: Intact General Assessment General Assessment Hearing: mild [place] Hand Dominance: Right Home Living Home Living Type of Home: House Lives With: Spouse Home Adaptive Equipment: Walker rolling, Cane, Rollator Home Living Comments: Primarily using RW in home and community Home Layout: Two level, Able to live on main level with bedroom/bathroom (Family reports that patient currently lives only on main level) Home Access: Stairs to enter with rails Entrance Stairs-Number of Steps: 5 Bathroom Shower/Tub: Tub/shower unit Bathroom Toilet: Handicapped height Bathroom Equipment: Grab bars in shower, Shower chair with back, Hand-held shower Prior Level of Function Prior Function Level of [place]: Independent with ADLs and functional transfers, Independent with homemaking with ambulation Prior Functional Mobility: Independent with rolling walker Receives Help From: Family Vision Basic Assessment Vision - Basic Assessment Current Vision: Wears glasses all the time General Assessments Activity Tolerance Endurance: Stage III Activity Tolerance Comments: Activity limited by fatigue Sensation Light Touch: No apparent deficits Proprioception Proprioception: No apparent deficits Perception Inattention/Neglect: Appears intact Initiation: Appears intact Motor Planning: Appears intact Perseveration: Not present Coordination Movements are Fluid and Coordinated: Yes Postural Control Posture Assessment: Independent sitting EOB, able to correct to midline posture at EOB Postural Control: Within Functional Limits Static Sitting Balance Static Sitting-Balance Support: Feet supported Static Sitting-Level of Assistance: Independent Dynamic Sitting Balance Dynamic Sitting-Balance Support: Feet supported Dynamic Sitting-Balance: Forward lean, Reaching for objects Dynamic Sitting Balance-Level of Assistance: Close supervision Static Standing Balance Static Standing-Balance Support: With device (RW) Static Standing-Level of Assistance: Close supervision Dynamic Standing Balance Dynamic Standing-Balance Support: With device (RW) Dynamic Standing Balance-Level of Assistance: Close supervision Functional Assessments Bed Mobility Bed Mobility: Yes Bed Mobility 1 Bed Mobility From 1: Supine Bed Mobility Type 1: To and from Bed Mobility to 1: Short sit Level of Assistance 1: Close supervision Bed Mobility Comments 1: HOB elevated ~60 degrees, foot of bed flattened to assist pt in sitting upright EOB Transfers Transfer: Yes Transfer 1 Transfer From 1: Bed Transfer Type 1: To and from Transfer to 1: Stand Transfer Device 1: rolling walker Transfer Level of Assistance 1: Minimum assistance Trials/Comments 1: Greg to ensure stability and assist in initiation/anterior weight shift. Patientdemos good LE strength required to execute movement Ambulation Ambulation: Yes Ambulation 1 Surface 1: Level tile Device 1: Rolling walker (2L O2) Assistance 1: Close supervision Quality of Gait 1: Patient demonstrated good strength and stability during ambulation, mild shortness of breath noted Comments/Distance (ft) 1: ~110 ft SBA with RW Stairs Stairs: No Extremity Assessments RLE Assessment RLE Assessment: Within Functional Limits (Grossly 4/5) LLE Assessment LLE Assessment: Within Functional Limits (Grossly 4/5) Outcome Assessments 6 Clicks (Mobility) Help from another person turning from your back to your side while in a flat bed without using bedrails: None Help from another person moving from lying on your back to sitting on the side of a flat bed without using bedrails: A little Help from another person moving to and from a bed to a chair (including a wheelchair): A little Help from another person standing up from a chair using your arms (e.g. wheelchair or bedside chair): A little Help from another person to walk in hospital room: A little Help from another person climbing 3-5 steps with a railing: A lot Mobility 6 Clicks T-Score: 18 Assessment/Plan PT Assessment Impairments: Decreased strength, Decreased range of motion, Decreased endurance, Impaired balance, Decreased mobility, Decreased coordination PT Assessment: Patient is an 85 y/o male admitted 05/10/25 from [facility] with high BNP and progressive lower extremity edema. Patient presents with the above impairments and would benefit from skilled PT to improve tolerance to activity and strength required for independent function. Prognosis: Good Evaluation/Treatment Tolerance: Patient tolerated treatment well Medical Staff Made Aware: Yes Strengths: Support of extended family/friends, Support and attitude of living partners, Capable of completing ADLs semi/independent, Rehab experience, Access to adaptive/assistive products Barriers to Discharge: Comorbidities Plan Level of assist: 1 assist Treatment/Interventions: Bed mobility, Functional transfer training, Gait training, LE strengthening/ROM, Endurance training, Balance training, Patient/family training PT Plan: Skilled PT PT Frequency: 4 times per week PT Discharge Recommendations: Patient is able to return to prior living environment PT - Discharge Recommendations Placed: Yes PT Goals Multi-Disciplinary Problems (from Physical Therapy) Active Problems Problem: Balance Start Date: 05/10/25 Goal Start Date Expected End Date End Date LTG - Patient will maintain standing and sitting balance to allow for completion of daily activities 05/10/25 05/24/25 -- Problem: Mobility Start Date: 05/10/25 Goal Start Date Expected End Date End Date LTG - Patient will ambulate at least 100 feet with stand-by/contact guard using least restrictive device to improve tolerance to activity 05/10/25 05/24/25 -- Problem: Transfers Start Date: 05/10/25 Goal Start Date Expected End Date End Date LTG - Patient will complete all transfers with stand-by/contact guard using least restrictive device to improve functional independence 05/10/25 05/24/25 -- Goal Start Date Expected End Date End Date LTG - Patient will perform all bed mobility with no assistance to improve functional independence 05/10/25 05/24/25 -- Problem: PT Misc Start Date: 05/10/25 Goal Start Date Expected End Date End Date Patient will participate in at least 25 minutes of physical activity to improve tolerance to activity 05/10/25 05/24/25 -- Goal Start Date Expected End Date End Date Patient will participate in strength training to maintain functional strength required for independent mobility. 05/10/25 05/24/25 -- [1] Patient Active Problem List Diagnosis Primary hypertension Acute congestive heart failure (CMS/HCC) History of CVA (cerebrovascular accident) Type 2 diabetes mellitus, with long-term current use of insulin (CMS/HCC) Other hyperlipidemia Chronic atrial fibrillation (CMS/HCC) Chest pain Angina pectoris, unstable (CMS/HCC) [2] History reviewed. No pertinent past medical history. [3] History reviewed. No pertinent surgical history. Cosigned by Landen Rice PT at 05/10/2025 3:50 PM EDT Associated attestation - Landen Rice PT - 05/10/2025 3:50 PM EDT This resume writer (PT) provided one-on-one supervision, direction of patient care/therapeutic interventions, and reviewed documentation. * Lenin Hunter, OT - 05/10/2025 8:26 AM EDT Occupational Therapy Occupational Therapy Evaluation Patient Name: Nadir Beth : 1940 Today's Date: 05/10/2025 General Subjective: friendly and cooperative Problem List[1] Medical History[2] Surgical History[3] Precautions Precautions Medical Precautions: fall risk, chair alarm Pain Pain Assessment Pain Assessment: No/denies pain Cognition Cognition Overall Cognitive Status: Impaired Arousal/Alertness: Appropriate responses to stimuli Orientation Level: Oriented to person, Oriented to time, Disoriented to place, Disoriented to situation Following Commands: Follows all commands and directions without difficulty Safety Judgment: (not impulsive) Awareness of Errors: Good awareness of errors made Attention Span: Appears intact Memory: Decreased short term memory Communication: Intact General Assessment General Assessment Hearing: (mild [place]) Hand Dominance: Right Home Living Home Living Type of Home: House Lives With: Spouse Home Adaptive Equipment: Walker rolling, Cane (sc, gb, hhs) Home Layout: One level Home Access: Stairs to enter with rails (5) Bathroom Shower/Tub: Tub/shower unit Prior Level of Function Prior Function Level of [place]: Independent with ADLs and functional transfers, Independent with homemaking with ambulation Prior Functional Mobility: Independent without device (drives) Prior IADLs IADL History Homemaking Responsibilities: Yes Static Sitting Balance Dynamic Sitting Balance Dynamic Sitting Balance Dynamic Sitting Balance-Level of Assistance: Independent Static Standing Balance Static Standing Balance Static Standing-Level of Assistance: Minimum assistance Dynamic Standing Balance ADL ADL LE Dressing Assistance: Minimal Bed Mobility Transfers Transfers Transfer: (indep supine to sit EOB, min A : sit to stand, take a few steps to chair and sit) Objective General Assessments Activity Tolerance Endurance: Stage II Vision - Basic Assessment Current Vision: No visual deficits Sensation Light Touch: No apparent deficits Coordination Movements are Fluid and Coordinated: Yes Extremity Assessments RUE Assessment RUE Assessment: Within Functional Limits LUE Assessment LUE Assessment: Within Functional Limits Outcome Assessments AM-PAC 6 Clicks Putting on and taking off regular lower body clothing?: A Little (Min Assist/Contact Guard/Supervision) Bathing(Including washing,rinsing,drying)?: A Little (Min Assist/Contact Guard/Supervision) Toileting, which includes using the toilet,bedpan,or urinal?: A Little (Min Assist/Contact Guard/Supervision) Putting on and taking off regular upper body clothing?: None (Independent) Taking care of personal grooming such as brushing teeth?: None (Independent) Eating meals?: None (Independent) Total Score OT AMPAC: 21 Assessment/Plan OT Assessment OT Impairments: Decreased ADL status, Decreased endurance, Decreased functional mobility OT Assessment/DENNY Summary: (needs skilled OT due to weakness and fatigue) Prognosis: Good Evaluation/Treatment Tolerance: Patient limited by fatigue Medical Staff Made Aware: Yes OT Education/Comments: (LB adl and adl transfer safety / techique with good return demo) Plan Level of assist: 1 assist Treatment Interventions: ADL retraining, Functional transfer training, Endurance training, Patient/family training, Neuromuscular reeducation, Compensatory technique education OT Plan: Skilled OT OT Frequency: 5 times per week OT Discharge Recommendations: Patient is able to return to prior living environment OT - Discharge Recommendations Placed: Yes OT Goals Multi-Disciplinary Problems (from Occupational Therapy) Active Problems Problem: Balance Start Date: 05/10/25 Goal Start Date Expected End Date End Date LTG - Patient will maintain stand balance to allow for safe mobility 05/10/25 05/24/25 -- Problem: Bathing Start Date: 05/10/25 Goal Start Date Expected End Date End Date LTG - Patient will utilize adaptive techniques to bathe body with no assistance 05/10/25 05/24/25 -- Problem: Dressings Lower Extremities Start Date: 05/10/25 Goal Start Date Expected End Date End Date LTG - Patient will dress lower body with no assistance 05/10/25 05/24/25 -- Problem: Toileting Start Date: 05/10/25 Goal Start Date Expected End Date End Date LTG - Patient will utilize adaptive techniques/equipment to complete daily toileting tasks with no assistance 05/10/25 05/24/25 -- Problem: OT Misc Start Date: 05/10/25 Goal Start Date Expected End Date End Date Mod I adl transfers 50 feet and standing 10 minutes 05/10/25 05/24/25 -- [1] Patient Active Problem List Diagnosis Primary hypertension Acute congestive heart failure (CMS/HCC) History of CVA (cerebrovascular accident) Type 2 diabetes mellitus, with long-term current use of insulin (CMS/[facility]) Other hyperlipidemia Chronic atrial fibrillation (CMS/HCC) Chest pain [2] History reviewed. No pertinent past medical history. [3] History reviewed. No pertinent surgical history. documented in this encounter H&P Notes * Fabio Renee MD - 05/15/2025 2:51 PM EDT Images from the original note were not included. Adult ICU History & Physical Patient - [facility] Beth [facility] 85 [facility] 1940 [id number] Date of Admission - 05/10/2025 2:37 AM History of Present Illness Nadir Beth is an 85 y.o. male with a PMH of HFpEF, paroxysmal A-fib on Xarelto, CVA, T2DM, hypertension, renal artery stenosis left renal stent, and hyperlipidemia who was admitted as a directtransfer from [facility] on 05/10/2025 for acute on chronic heart failure. 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 He presented to the ED on the advice of his physician following an increase in lower extremity edema with associated labs showing a BNP 6200. In the [facility] ED he was found to have pulmonary vascular congestion with right sided pleural effusion on chest x-ray, and found to be hypertensive at 190/68, initially managed medically with lasix and antihypertensives prior to transfer. At [facility] echo was performed which was unable to obtain an EF due to heart rhythm but was preserved, there was associated severe RA and LA enlargement, moderate to severe , AR, mild MR and TR. Right heart cath revealed moderate coronary artery disease with a borderline significant mid LAD lesion and was recommended TAVR which was performed on 05/15/2025 and transferred to the ICU for 24 hour observation. Repeat echo showed EF of 70% mean PG 3 mmHg, no valvular or paravalvular insufficiency. PMH: Patient has a PMH of HFpEF, chronic A-fib on Xarelto, CVA, T2DM, hypertension, renal artery stenosis and hyperlipidemia PSH: Per family. 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 His smoking use included cigarettes. He has never used smokeless tobacco. Alc/Tobacco/Drug: Per family social drinking, smoking history until the mid , denies elicit drugs Medications: Patient Current Medications[1] Allergies: Patient Aminolevulinic acid hcl, Iodinated contrast media, Nitroglycerin, and Simvastatin Family history: Per family colon cancer in mother, heart disease in parents ROS, Vitals and Physical Exam Review of Systems Sedated. Unable to elicit ROS Ht Readings from Last 1 Encounters: 05/10/25 1.828 m (5' 11.97 ) Wt Readings from Last 1 Encounters: 05/15/25 73.9 kg (163 lb) height is 1.828 m (5' 11.97 ) and weight is 73.9 kg (163 lb). His temporal temperature is 36.6 ??C (97.9 ??F). His blood pressure is 156/70 and his pulse is 95. His respiration is 16 and oxygen saturation is 98%. Intake/Output Summary (Last 24 hours) at 05/15/2025 1451 Last data filed at 05/15/2025 1429 Gross per 24 hour Intake 480 ml Output 610 ml Net -130 ml Temp: [36.4 ??C (97.5 ??F)-36.6 ??C (97.9 ??F)] 36.6 ??C (97.9 ??F) Heart Rate: [66-98] 95 Resp: [14-23] 16 BP: (110-171)/(50-100) 156/70 Physical Exam Constitutional: Appearance: He is normal weight. HENT: Head: Normocephalic and atraumatic. Cardiovascular: Rate and Rhythm: Normal rate and regular rhythm. Heart sounds: Murmur heard. Systolic murmur is present. Pulmonary: Effort: Pulmonary effort is normal. Breath sounds: Normal breath sounds and air entry. Abdominal: General: Abdomen is flat. Palpations: Abdomen is soft. Tenderness: There is no abdominal tenderness. Musculoskeletal: Cervical back: Neck supple. Right lower leg: Normal. No edema. Left lower leg: Normal. No edema. Right ankle: No swelling. Neurological: Mental Status: He is lethargic. General: Patient is alert and oriented x3, not in acute distress. HEENT: Atraumatic, normocephalic, PERRLA Neck: Supple neck. Respiratory: Clear breathing sound bilaterally, no wheezing no crackles. Heart: Regular rhythm, no murmur, no rub. Neurology: Can move all extremities, no focal deficit. Abdomen: Soft, not distended, not tender,. Extremities: No cyanosis, lower extremity edema. Skin: Warm and dry. Labs/Imaging Hematology: Results from last 7 days Lab Units 05/15/25 0339 05/14/25 1528 05/13/25 0343 WBC AUTO 10*3/uL 12.04* -- 10.18 HEMOGLOBIN g/dL 10.3* -- 9.8* HEMATOCRIT % 33.6* -- 31.3* MCV fL 82.4 -- 82.4 PLATELETS AUTO 10*3/uL 306 297 287 Chemistry: Results from last 7 days Lab Units 05/15/25 0339 05/14/25 0338 05/13/25 0343 05/11/25 0427 05/10/25 0454 SODIUM mmol/L 137 138 138 < > 139 POTASSIUM mmol/L 4.5 3.8 3.5 < > 3.6 CHLORIDE mmol/L 99 100 99 < > 101 CO2 mmol/L 27 29 29 < > 26 BUN mg/dL 34* 34* 32* < > 28* CREATININE mg/dL 1.61* 1.74* 1.65* < > 1.45* GLUCOSE mg/dL 255* 186* 206* < > 156* MAGNESIUM mg/dL -- -- -- -- 2.0 CALCIUM mg/dL 8.9 8.4* 8.5* < > 8.5* < > = values in this interval not displayed. Results from last 7 days Lab Units 05/10/25 0454 AST U/L 14 ALT U/L 7 ALK PHOS U/L 72 BILIRUBIN TOTAL mg/dL 0.4 Results from last 7 days Lab Units 05/15/25 1123 05/15/25 0755 05/14/25 2019 05/14/25 1656 05/14/25 1213 05/14/25 0705 POCT GLUCOSE mg/dL 288* 351* 303* 254* 225* 209* Historical Values: (Includes values prior to this admission) Lab Results Component Value Date TSH 1.34 05/10/2025 HDL 69 05/11/2025 LDL 118 05/11/2025 No results found for: [id number] , IRON , TIBC , C3 , C4 , SHERRY , CANCA , ASO , PSA , CEA , CA125 , CA199 , AFP , CA153 TAVR INDICATION: Nadir Beth is a 85 y.o. 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 he was evaluated in Cardiology and Cardiothoracic Surgery Clinics, and was deemed appropriate for TAVR as treatment for his aortic valve stenosis. He is admitted with acute decompensated diastolic heart failure. he had shared decision making and agreed to the procedure. he is brought today for that purpose. PROCEDURES: Successful transcatheter aortic valve replacement using a 26 mm Le MOIZ 3 Ultra RESILIA valve deployed at nominal volume +2 ml via percutaneous transfemoral access. Aortic root angiography. Placement of a temporary pacemaker wire. Left heart catheterization. Access into the right internal jugular vein, right and left common femoral arteries under ultrasound guidance. Preclosure in the right common femoral artery using two 6-Moldovan ProGlide devices. Angio-Seal vascular closure in the left common femoral artery. Placement of SENTINEL cerebral embolic protection device. OPERATORS: Interventional Cardiology Electrical Controls Engineer: Mike Cisneros MD Cardiac Surgery Electrical Controls Engineer: Negro Lopez MD Machine Builder Interventional Cardiology Electrical Controls Engineer: Shamar Nolan METHODS: Procedure was explained to the patient with risks and benefits. he signed informed consent. he was brought to labor training manager in a fasting state. The procedure was performed in the cardiac labor training manager under conscious sedation. The right wrist area was prepped and draped in usual fashion. Access was obtained using ultrasound guidance and micropuncture technique in the right radial artery and a 6-Moldovan x 11 cm Hydrophilic sheath was placed. Verapamil was given through the sheath. Both groin areas, and the right neck area were prepped and draped in usual fashion. Ultrasound guidance was used for micropuncture access in the right internal jugular vein and a 6-Moldovan x 11 cm introducer sheath was secured in place. Micropuncture technique and ultrasound guidance were used for access in the right common femoral artery and inner cannula angiography was performed followed by upsizing to a 6-Moldovan x 11 cm sheath. The same was done for the access in the left common femoral artery. At this time, we proceeded with the preclosure in the right common femoral artery using 2 crossing Perclose devices and the access was then upsized over a wire to a 10-Moldovan sheath. A 5-Moldovan balloon-tipped pacemaker wire was advanced through the internal jugular vein sheath to the right ventricular apex and adequate capture was confirmed. Heparin was given intravenously and therapeutic ACT confirmed during the rest of the procedure and additional heparin given as needed. Through the left common femoral sheath, an angled 6-Moldovan pigtail catheter was then advanced to the ascending aorta and placed in the noncoronary cusp. Aortic root angiography was performed in the coplanar view as determined by prior CT scan measurements. A 6-Moldovan IM diagnostic catheter was then advanced through the right radial sheath and then navigated using an 0.035 inch wire to the ascending aorta and this was used to place an exchange length Grandslam 0.014 inch wire. The wire was advanced to the left carotid artery. A [place] device was then prepped using standard techniques and then advanced. The proximal filter was deployed in the innominate artery followed by deployment of the distal filter. The [place] device was then secured in place. The right common femoral access was then upsized using an exchange length Lunderquist wire [which was placed through a multipurpose catheter] to the 14-Moldovan Le E-sheath. The sheath was secured in place. A 6-Moldovan AL1 diagnostic catheter was advanced via the E-sheath, and using a straight stiff Glidewire, the aortic valve was crossed and the catheter was advanced in the left ventricular cavity, and using an exchange length J-wire, a 6-Moldovan angled pigtail catheter was advanced to make sure no entanglement under mitral valve apparatus. The pigtail catheter was then used to place an exchange length Amplatz Extra Stiff wire with a distal curve. Based on the prior CT scan measurements, we proceeded with a Le MOIZ 3 Ultra RESILIA 26 mm valve. This was prepped using standard technique at nominal volume +2 ml. The valve was then advanced over the wire and across the aortic valve. Aortic root angiography in the coplanar view was performed confirming adequate valve position. Under rapid pacing at 180 beats per minute, the valve was deployed. The balloon was deflated, and pacing was stopped. The delivery catheter was retracted. The delivery catheter of the valve was exchanged over the wire to a 6-Moldovan angled pigtail catheter which was advanced across the valve into the left ventricular cavity and used to perform left heart catheterization and assessment of the valvular gradient. There was 0 mm Hg mean transvalvular gradient. Echocardiography was performed showing no perivalvular leak and 2 mmHg mean gradient across the valve, and no pericardial effusion. Aortic root angiography was then performed with power injection of contrast showing trivial paravalvular leak and adequate position of the valve at 100/0 aortic/ventricular. The pigtail catheters were retracted. The [place] device was recaptured. At this stage, the procedure was concluded. An electrocardiogram was performed showing atrial fibrillation and new LBBB. Therefore, the temporary pacemaker wire was secured in place. The previously placed Perclose sutures were tightened in the right common femoral artery achieving good hemostasis. A 6-Moldovan Angioseal device was used for hemostasis in the left common femoral artery. Distal pulses in the feet were comparable to baseline. The radial sheath was removed and TR band was used for hemostasis in the right radial artery. The internal jugular venous sheath was secured in place. Protamine 50 mg was administered at the end of the procedure. he tolerated the procedure well. he was hemodynamically stable and awake throughout the procedure with no apparent complications. he will be transferred to the hospital bed for further management. RECOMMENDATIONS: 1, Aspirin 81 mg daily for life. Xarelto 15 mg once daily to start tomorrow evening. 2. Echocardiogram the next morning. 3. Endocarditis prophylaxis for life after transcatheter aortic valve replacement. 4. Follow up in Cardiology Clinic in 1 month with echocardiogram. Mike Cisneros MD Cardiac catheterization PROCEDURE PHYSICIAN: Shamar Nolan MD Clinical Presentation: 85 y.o. Male with history of A-fib on Xarelto, hypertension, HFpEF, CKD, recent history of CVA 4 months ago, renal artery stenosis transferred from [facility] for acute on chronic HFpEF and aortic stenosis. He presents for coronary angiogram and heart catheterization as part of the pre-TAVR workup. Final Impression: 1) coronary angiogram revealed moderate CAD 2) Echo showed severely decompensated heart failure with mean wedge pressure of 28 mmHg Plan: 1) optimal med therapy for CAD and HFpEF 2) further diuresis and optimization of HFpEF med therapy as tolerated Procedures Performed: coronary angiogram, right heart catheterization, conscious sedation 34 min, ultrasound guidance for vascular access Procedure Description: The patient was brought to the cardiac catheterization lab in a fasting state. Informed written consent was obtained. he was prepped and draped in usual sterile fashion over the left wrist and right neck and bilateral groins. Time-out was performed. he was given Versed and fentanyl for sedation. 1% lidocaine was infiltrated over the right internal jugular vein. Using ultrasound guidance and a micropuncture access technique a 6 Moldovan sheath was placed in the right internal jugular vein. The Garza catheter was advanced under fluoroscopic and hemodynamic monitoring to the right atrium. Pressure obtained of the right atrium, right ventricle, pulmonary artery, pulmonary capillary position. Oxygen saturation drawn for the pulmonary artery and Mary cardiac with a cardiac index were calculated. 1% lidocaine was infiltrated over the left radial artery. A 6-Moldovan Terumo Glidesheath slender was placed in left radial artery. Radial anti-vasospasm cocktail of verapamil 1.25 mg and nitroglycerin 100 mcg was administered through the sheath. All catheter exchanges were made over the Hendricks guidewire. Coronary angiogram was performed with a JL4 to engage the left main and a JR4 to engage the RCA. Coronary angiogram was performed in multiple orthogonal views. All catheters and wires were removed. The left radial sheath was removed and a TR band was applied to obtain hemostasis. The right internal jugular venous sheath was also removed and manual pressure applied for hemostasis. Specimens Removed: None Complications: None Hemodynamic Data: RA: 12 mmHg RV: 62/30 mmHg PA: 64/20 (41) mmHg PCWP: 28 mmHg (large V waves to 40 mmHg also noted, consistent with acute heart failure and/or mitral valve disease) AO: 133/55 (MAP 85) mmHg CO: 5.4 L/min CI: 2.7 L/min/m2 O2 Sat: PA sat: 64% AO sat: 99% Coronary Angiogram: Left main: The left main is a large vessel and is. Mid left main is 20% stenosis. The distal left main splits into 4 different branches including the LAD, ramus, and a high OM1 and a circumflex LAD: the ostial LAD has 30% stenosis. The mid LAD has a 50% stenosis. The remainder the LAD and diagonal branches are patent with luminal irregularities. RAMUS: patent with luminal irregularities LCX: The left circumflex is a moderate caliber vessel. The proximal to mid left circumflex is a diffuse 40% stenosis. The remainder of the circumflex is patent with luminal irregularities. RCA: The RCA is a large vessel and is dominant. The proximal RCA has 30% stenosis. Remainder the RCA is luminal irregularities but is otherwise patent. The right PDA and FELIPE are both patent. XR transfer of outside films This order has been auto-finalized and does not contain a result. CT transfer of outside films This order has been auto-finalized and does not contain a result. Vascular US carotid artery duplex bilateral Narrative: Procedure: The carotid arteries, including common carotid, internal and external carotidartery were evaluated bilaterally. This was done using real- time imaging with velocity measurement,color Doppler, and spectral analysis. The vertebral arteries were evaluated bilaterally using colorultrasound and velocity measurement. Procedure: The carotid arteries, including common carotid, internal and external carotid artery were evaluated bilaterally. This was done using real-time imaging with velocity measurement, color Doppler, and spectral analysis. The vertebral arteries were evaluated bilaterally using color ultrasoundand velocity measurement. Impression: Right: Homogeneous smooth plaque with no significant ICA spectral Doppler or color flowdisturbances: ICA 80/3 cm/sec; consistent with <50% diameter reduction. Antegrade vertebral artery flow. Left: Homogeneous smooth plaque with no significant ICA spectral Doppler or color flow disturbances: ICA 80/23 cm/sec; consistent with <50% diameter reduction. Antegrade vertebral artery flow. Right: Homogeneous smooth plaque with no significant ICA spectral Doppler or color flow disturbances: ICA 80/3 cm/sec; consistent with <50% diameter reduction. Antegrade vertebral artery flow. Left: Homogeneous smooth plaque with no significant ICA spectral Doppler or color flow disturbances: ICA 80/23 cm/sec; consistent with <50% diameter reduction. Antegrade vertebral artery flow. Conclusions: Antegrade flow of bilateral vertebral arteries. High resistance to flow in both vertebral arteries. <50% stenosis in right internal carotid artery. <50% stenosis in left internal carotid artery. ASSESSMENT Mr. Nadir Beth is a 85 y/o M with PMH of HFpEF, paroxysmal A-fib on Xarelto, CVA, T2DM, hypertension, renal artery stenosis left renal stent, and hyperlipidemia who is status post TAVR on 05/15 for aortic stenosis. Post TAVR echo showed a mean PG 3 mmHg and no valvular or paravalvular insufficiency. He was transferred to the ICU for 24 hour observation period. PLAN Acute on chronic HFpEF 2/2 aortic stenosis HFpEF NYHA II Status post TAVR on 05/15 Repeat echo post TAVR showed 70% EF Pre TAVR: Severe aortic valve calcification is present. No aortic valve regurgitation. Severe aortic valve stenosis. Post TAVR: mean PG 3 mmHg, no valvular or paravalvular insufficiency Cardiology following Paroxysmal A-fib CHADVASC 7 Holding Xeralto for TAVR Labetalol 300 mg TID for rate control Hypertensive urgency Per cardiology recommendations Continue clonidine 0.2 mg 3 times daily Continue hydralazine 25 mg 3 times daily Continue labetalol 300 mg 3 times daily Continue spironolactone 25 mg daily Type II Diabetes with long-term current use of insulin HumaLog sliding scale ACHS A1c: 9.3 05/12/25 Hx of CVA Hyperlipidemia Continue Asprin 81 mg daily Continue Zetia 10 mg daily Allergic to statins CKD - no baseline DVT prophylaxis: Heparin infusion, holding Xeralto Diet: Current NPO Fluids: PRN Code Status: Full [1] Current Facility-Administered Medications: acetaminophen (Tylenol) tablet 500 mg, 500 mg, oral, q6h PRN, Estuardo Reed MD, 500 mg at 05/10/25 1659 aspirin EC tablet 81 mg, 81 mg, oral, Daily, Estuardo Reed MD, 81 mg at 05/15/25 0829 ceFAZolin (Ancef) 2 g in sodium chloride 0.9 % 50 mL IVPB, , , Continuous PRN, Mike Cisneros MD, 2 g at 05/15/25 1323 cholecalciferol (Vitamin D-3) tablet 1,000 Units, 1,000 Units, oral, Daily, Estuardo Reed MD, 1,000 Units at 05/15/25 0829 cloNIDine (Catapres) tablet 0.2 mg, 0.2 mg, oral, TID, Cathie Henson MD, 0.2 mg at 05/14/25 2101 dapagliflozin propanediol (Farxiga) tablet 10 mg, 10 mg, oral, Daily, Estuardo Reed MD, 10 mg at05/15/25 0829 glucose chewable tablet 24 g, 24 g, oral, q15 min PRN OR dextrose 50 % in water (D50W) syringe 25 g, 25 g, intravenous, q15 min PRN, Estuardo Reed MD diphenhydrAMINE (BENADryl) injection, , , PRN, Mike Cisneros MD, 25 mg at 05/15/25 1313 ezetimibe (Zetia) tablet 10 mg, 10 mg, oral, Daily, Estuardo Reed MD, 10 mg at 05/15/25 0828 fentaNYL (Sublimaze) injection, , , PRN, Mike Cisneros MD, 25 mcg at 05/15/25 1420 furosemide (Lasix) tablet 40 mg, 40 mg, oral, Daily, Julio Cesar Medina MD, 40 mg at 05/15/25 0828 heparin (porcine) injection, , , PRN, Mike Cisneros MD, 3,000 Units at 05/15/25 1408 heparin infusion 100 units/mL in D5W, 0-28 Units/kg/hr, intravenous, Continuous, Ruy Amanda CNP, Last Rate: 13.3 mL/hr at 05/15/25 0442, 18 Units/kg/hr at 05/15/25 0442 heparin irrigation 2 units/mL in NS, , , PRN, Mike Cisneros MD, 1,000 mL at 05/15/25 1345 hydrALAZINE (Apresoline) tablet 25 mg, 25 mg, oral, TID, Estuardo Reed MD, 25 mg at 05/15/25 0900 insulin lispro (HumaLOG) injection 0-10 Units, 0-10 Units, subcutaneous, TID with meals, 6 Units at05/14/25 1754 AND insulin lispro (HumaLOG) injection 0-8 Units, 0-8 Units, subcutaneous, Nightly, Estuardo Reed MD, 6 Units at 05/14/25 2102 iodixanol (VISIPaque) 320 mg iodine/mL injection, , , PRN, Mike Cisneros MD, 66 mL at 05/15/25 1434 labetalol (Normodyne) tablet 300 mg, 300 mg, oral, TID, Cathie Henson MD, 300 mg at 05/15/25 0900 lidocaine (PF) (Xylocaine) 10 mg/mL (1 %) injection, , , PRN, Mike Cisneros MD, 40 mL at 05/15/25 1313 melatonin tablet 2 mg, 2 mg, oral, Nightly PRN, JulioC esar Medina MD, 2 mg at 05/14/25 2101 midazolam (Versed) injection, , , PRN, Mike Cisneros MD, 1 mg at 05/15/25 1355 mometasone-formoterol (Dulera 100) 100-5 mcg/actuation inhaler 2 puff, 2 puff, inhalation, BID, Julio Cesar Medina MD, 2 puff at 05/15/25 1050 polyethylene glycol (Glycolax) packet 17 g, 17 g, oral, Daily PRN, Estuardo Reed MD, 17 g at 05/13/25 1045 prednisoLONE acetate (Pred-Forte) 1 % ophthalmic suspension 1 drop, 1 drop, Right Eye, BID, Julio Cesar Medina MD, 1 drop at 05/15/25 1050 primidone (Mysoline) tablet 50 mg, 50 mg, oral, BID, Julio Cesar Medina MD, 50 mg at 05/15/25 1051 protamine injection, , , Continuous PRN, Mike Cisneros MD, 50 mg at 05/15/25 1437 [Held by provider] rivaroxaban (Xarelto) tablet 20 mg, 20 mg, oral, Daily with evening meal, Cathie Henson MD, 20 mg at 05/13/25 1643 sodium chloride 0.9 % infusion, , , Continuous PRN, Mike Cisneros MD, Last Rate: 100 mL/hr at 05/15/25 1313, 100 mL/hr at 05/15/25 1313 sodium chloride irrigation solution 0.9 %, , , PRN, Mike Cisneros MD, 1,000 mL at 05/15/25 1344 spironolactone (Aldactone) tablet 25 mg, 25 mg, oral, Daily, Cathie Henson MD, 25 mg at 05/15/25 0829 tamsulosin (Flomax) 24 hr capsule 0.4 mg, 0.4 mg, oral, Daily with evening meal, Julio Cesar Medina MD umeclidinium (Incruse Ellipta) 62.5 mcg/actuation inhalation 62.5 mcg, 1 puff, inhalation, Daily, Julio Cesar Medina MD, 62.5 mcg at 05/15/25 1050 verapamil (Isoptin) injection, , , PRN, Mike Cisneros MD, 1.5 mg at 05/15/25 1311 Cosigned by García Tse MD at 05/16/2025 6:39 PM EDT Associated attestation - García Tse MD - 05/16/2025 6:39 PM EDT I reviewed the salient portions of the patient history. I have seen and examined the patient duringrounds with the resident/fellow Bachar. I repeated the stephenson components of the exam. Agree with the noted assessment and plan. García Tse MD * Mike Cisneros MD - 05/15/2025 9:17 AM EDT H&P reviewed. The patient was examined and there are no changes to the H&P. He has severe nonrheumatic aortic valve stenosis with recurrent heart failure. Currently admitted with acute decompensated heart failure with preserved ejection fraction. he was discussed at the multidisciplinary team meeting with interventional cardiology and cardiothoracic surgery and deemed to be appropriate for TAVR and high risk candidate for SAVR. STS-PROM is 7.31% and risk of mortality/mobidity is 22.7%. Shared decision making was performed with him and his family members and they agreed to TAVR. Source Note - Negro Lopez MD - 05/11/2025 4:38 PM EDT Reason For Consult aortic stenosis Referring Provider: Mesha Nolan MD History Of Present Illness Nadir Beth is a 85 y.o. male presenting with acute on chronic heart failure. He was found tohave a BMP greater than [address] Sung's office in [place] yesterday. He also had signs of congestive heart failure with effusion in the right chest and peripheral edema; patient was treated with increasing Lasix. He was referred to Dr. Cisneros who admitted the patient. The patient's ejection fraction was difficult to assess on recent echocardiogram. Patient has known moderate-severe aortic stenosis with a mean gradient of 20 maximum, max gradient of 38, and aortic valve area of 0.8. The patient has paroxysmal atrial fibrillation on Xarelto. His states he has had a stroke 4 weeks agothat manifested with difficulty speaking and lower leg paresis. He saw Dr. 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 Patient is now neurologically intact; they state the sx lasted for 2 days. Patient also had mildly elevated troponins on this admission, probably from chronic myocardial injury; troponin went from 2 1-26. Patient had cardiac catheterization today that reveals moderate disease : there are multiple 30 to 40% non-significant coronary lesions; however; there is a mid LAD with 50% lesion which may need PCI. It also should be noted the patient had a right heart cath that revealed RV pressure of 62/30 , PA pressure of 64/20,mild MR, wedge of 28 with a large V wave of 40. RA pressure was 12. 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; no recurrence Hx Lap cholecystectomy Hx bilateral cataract removal Family History Family History[3] Non contributory Social History Smoking -10 pack year;quit 1959 Social History Socioeconomic History Marital status: Spouse name: None Number of children: None Years of education: None Highest education level: None Occupational History None Tobacco Use Smoking status: Former Types: Cigarettes Smokeless tobacco: Never Substance and Sexual Activity Alcohol use: None Drug use: None Sexual activity: None Other Topics Concern None Social History Narrative None Social Drivers of Health Financial Resource Strain: Low Risk (05/10/2025) Overall Financial Resource Strain (CARDIA) Difficulty of Paying Living Expenses: Not hard at all Food Insecurity: No Food Insecurity (05/10/2025) Hunger Vital Sign Worried About Running Out of Food in the Last Year: Never true Ran Out of Food in the Last Year: Not on file Transportation Needs: No Transportation Needs (05/10/2025) Transportation Lack of Transportation (Medical): No Lack of Transportation (Non-Medical): Not on file Physical Activity: Not on file Stress: Not on file Social Connections: Not on file Intimate Partner Violence: Unknown (05/10/2025) Humiliation, Afraid, Rape, and Kick questionnaire Fear of Current or Ex-Partner: No Emotionally Abused: Not on file Physically Abused: Not on file Sexually Abused: Not on file Housing Stability: Low Risk (05/10/2025) Housing Stability Vital Sign Unable to Pay for Housing in the Last Year: No Number of Times Moved in the Last Year: Not on file Homeless in the Last Year: No Allergies Allergies[4] Aminovulinic acid, iodinated contrast, NTG, Simvastatin Medications Prescriptions Prior to Admission[5] See nursing log Review of Systems Pertinent positives- negative for neurologic sx,negative for CP; recent SOB worsening,Negative for SX; no cough; no GI sx; Last Recorded Vitals Patient Vitals for the past 24 hrs: BP Temp Temp src Pulse Resp SpO2 Weight 05/11/25 1330 140/64 -- -- 81 (!) 27 94 % -- 05/11/25 1315 (!) 165/93 -- -- 87 17 98 % -- 05/11/25 1300 163/68 -- -- 72 21 99 % -- 05/11/25 1245 148/58 -- -- 81 19 99 % -- 05/11/25 1230 148/62 -- -- 76 17 97 % -- 05/11/25 1215 131/69 -- -- 68 16 98 % -- 05/11/25 1200 145/61 -- -- 86 12 99 % -- 05/11/25 1145 151/68 -- -- 71 18 98 % -- 05/11/25 1138 152/63 -- -- 73 17 98 % -- 05/11/25 1120 150/61 -- -- 73 22 -- -- 05/11/25 1106 155/67 -- -- 77 17 93 % -- 05/11/25 1031 -- -- -- -- -- 98 % -- 05/11/25 1030 145/60 -- -- 77 14 98 % -- 05/11/25 0800 149/57 36.5 ??C (97.7 ??F) Temporal 72 14 97 % -- 05/11/25 0600 138/54 -- -- 75 11 98 % -- 05/11/25 0547 -- -- -- -- -- -- 80 kg (176 lb 5.9 oz) 05/11/25 0400 147/61 36.6 ??C (97.9 ??F) -- 82 14 98 % -- 05/11/25 0200 135/60 -- -- 82 12 97 % -- 05/11/25 0000 127/50 36.5 ??C (97.7 ??F) -- 78 13 95 % -- 05/10/25 1738 134/60 -- -- 71 13 97 % -- 05/10/25 1647 146/71 -- -- -- -- -- -- Physical Exam NAD, alert and oriented x3 Faint carotid bruit on left CV- irreg irreg rhythm,ANGELI RUSB,syst murmur at apex Pulm- Decreased BS right base, otherwise clear. Rales present bilaterall, ABD_ soft nontender, pos BS, Mild distention, upper midline scar MUS/Skel no calf tenderness,minimal edema Neurovasc No focal deficits,Physiologic Good peripheral pulses, relevant Results Admission on 05/10/2025 Component Date Value Ref Range Status Sodium 05/10/2025 139 136 - 145 mmol/L Final Potassium 05/10/2025 3.6 3.5 - 5.1 mmol/L Final Chloride 05/10/2025 101 98 - 107 mmol/L Final CO2 05/10/2025 26 21 - 31 mmol/L Final Anion Gap 05/10/2025 16 7 - 20 mmol/L Final BUN 05/10/2025 28 (H) 7 - 25 mg/dL Final Creatinine 05/10/2025 1.45 (H) 0.70 - 1.30 mg/dL Final BUN/Creatinine Ratio 05/10/2025 19.3 Final Glucose 05/10/2025 156 (H) 70 - 100 mg/dL Final Calcium 05/10/2025 8.5 (L) 8.6 - 10.3 mg/dL Final AST 05/10/2025 14 13 - 39 U/L Final ALT (SGPT) 05/10/2025 7 7 - 52 U/L Final Alkaline Phosphatase 05/10/2025 72 34 - 104 U/L Final Total Protein 05/10/2025 6.2 6.0 - 8.3 g/dL Final Albumin 05/10/2025 3.5 3.5 - 5.7 g/dL Final Total Bilirubin 05/10/2025 0.4 0.3 - 1.0 mg/dL Final eGFR 05/10/2025 46.9 (L) >60.0 mL/min/1.73m*2 Final [facility]???s estimated glomerular filtration rate (eGFR) will no longer include consideration of race in its calculation. The [employer]???s eGFR Task Force developed new recommendations for the estimation of the glomerular filtration rate in the [place] They recommend immediate implementation of the new equation refit without the race variable in all laboratories because the calculation does not include race. In addition to not including race in the calculation and reporting, it included diversity in its development, and has acceptable performance characteristics and potential consequences that do not disproportionately affect any one group of individuals. Magnesium 05/10/2025 2.0 1.9 - 2.7 mg/dL Final TSH 05/10/2025 1.34 0.34 - 5.60 mIU/L Final High Sensitivity Troponin I 05/10/2025 21 (H) <20 ng/L Final High Sensitivity Troponin I 05/10/2025 21 (H) <20 ng/L Final High Sensitivity Troponin I 05/10/2025 26 (H) <20 ng/L Final Auto WBC 05/10/2025 10.50 4.00 - 10.60 10*3/uL Final RBC 05/10/2025 4.05 (L) 4.20 - 5.70 10*6/uL Final Hemoglobin 05/10/2025 10.4 (L) 13.0 - 17.0 g/dL Final Hematocrit 05/10/2025 33.3 (L) 39.0 - 50.0 % Final MCV 05/10/2025 82.2 82.0 - 98.0 fL Final MCH 05/10/2025 25.7 (L) 27.0 - 33.0 pg Final MCHC 05/10/2025 31.2 (L) 32.0 - 35.0 g/dL Final RDW 05/10/2025 19.2 (H) 11.5 - 15.0 % Final Neutrophils % 05/10/2025 79.1 (H) 40.0 - 72.0 % Final Lymphocytes % 05/10/2025 8.2 (L) 20.0 - 45.0 % Final Monocytes % 05/10/2025 10.3 5.0 - 12.0 % Final Eosinophils % 05/10/2025 1.4 0.0 - 6.0 % Final Basophils % 05/10/2025 0.4 0.0 - 1.0 % Final Neutrophils Absolute 05/10/2025 8.31 (H) 1.60 - 7.60 10*3/uL Final Lymphocytes Absolute 05/10/2025 0.86 (L) 1.20 - 4.00 10*3/uL Final Monocytes Absolute 05/10/2025 1.08 (H) 0.10 - 1.00 10*3/uL Final Eosinophils Absolute 05/10/2025 0.15 0.00 - 0.50 10*3/uL Final Basophils Absolute 05/10/2025 0.04 0.00 - 0.20 10*3/uL Final Platelets 05/10/2025 311 150 - 400 10*3/uL Final nRBC % 05/10/2025 0.0 0 % Final Immature Granulocytes % 05/10/2025 0.6 0.0 - 1.0 % Final Immature Granulocytes Absolute 05/10/2025 0.06 0.00 - 0.20 10*3/uL Final Glucose POC 05/10/2025 186 (H) 70 - 105 mg/dL Final isegura2 BNP 05/10/2025 736 (H) 0 - 100 pg/mL Final Anti-Xa (Heparin) 05/10/2025 0.21 (L) 0.3 - 0.7 IU/mL Final Rivaroxaban and Apixaban will interfere with the anti Xa assay used to monitor UFH and LMWH. aPTT 05/10/2025 34.1 25.0 - 35.0 Seconds Final Clinical significance of the APTT is questionable in the presence of heparin. Platelets 05/10/2025 349 150 - 400 10*3/uL Final Glucose POC 05/10/2025 172 (H) 70 - 105 mg/dL Final isegura2 Anti-Xa (Heparin) 05/10/2025 0.25 (L) 0.3 - 0.7 IU/mL Final Rivaroxaban and Apixaban will interfere with the anti Xa assay used to monitor UFH and LMWH. Glucose POC 05/10/2025 159 (H) 70 - 105 mg/dL Final isegura2 Anti-Xa (Heparin) 05/11/2025 0.28 (L) 0.3 - 0.7 IU/mL Final Rivaroxaban and Apixaban will interfere with the anti Xa assay used to monitor UFH and LMWH. Glucose POC 05/10/2025 237 (H) 70 - 105 mg/dL Final [id number] Auto WBC 05/11/2025 11.58 (H) 4.00 - 10.60 10*3/uL Final RBC 05/11/2025 3.84 (L) 4.20 - 5.70 10*6/uL Final Hemoglobin 05/11/2025 9.9 (L) 13.0 - 17.0 g/dL Final Hematocrit 05/11/2025 31.8 (L) 39.0 - 50.0 % Final MCV 05/11/2025 82.8 82.0 - 98.0 fL Final MCH 05/11/2025 25.8 (L) 27.0 - 33.0 pg Final MCHC 05/11/2025 31.1 (L) 32.0 - 35.0 g/dL Final RDW 05/11/2025 19.0 (H) 11.5 - 15.0 % Final Platelets 05/11/2025 312 150 - 400 10*3/uL Final Sodium 05/11/2025 140 136 - 145 mmol/L Final Potassium 05/11/2025 4.2 3.5 - 5.1 mmol/L Final Chloride 05/11/2025 101 98 - 107 mmol/L Final CO2 05/11/2025 28 21 - 31 mmol/L Final BUN 05/11/2025 31 (H) 7 - 25 mg/dL Final Creatinine 05/11/2025 1.56 (H) 0.70 - 1.30 mg/dL Final Glucose 05/11/2025 237 (H) 70 - 100 mg/dL Final Calcium 05/11/2025 8.4 (L) 8.6 - 10.3 mg/dL Final Anion Gap 05/11/2025 15 7 - 20 mmol/L Final eGFR 05/11/2025 43.0 (L) >60.0 mL/min/1.73m*2 Final [facility]???s estimated glomerular filtration rate (eGFR) will no longer include consideration of race in its calculation. The [employer]???s eGFR Task Force developed new recommendations for the estimation of the glomerular filtration rate in the [place] They recommend immediate implementation of the new equation refit without the race variable in all laboratories because the calculation does not include race. In addition to not including race in the calculation and reporting, it included diversity in its development, and has acceptable performance characteristics and potential consequences that do not disproportionately affect any one group of individuals. BUN/Creatinine Ratio 05/11/2025 19.9 Final Extra Tube 05/11/2025 Hold for add-ons. Final Auto resulted. Anti-Xa (Heparin) 05/11/2025 0.38 0.3 - 0.7 IU/mL Final Rivaroxaban and Apixaban will interfere with the anti Xa assay used to monitor UFH and LMWH. Glucose POC 05/11/2025 224 (H) 70 - 105 mg/dL Final [facility] Triglycerides 05/11/2025 93 <150 mg/dL Final TRIGLYCERIDE REFERENCE RANGE: 20 YEARS AND OLDER CARDIOVASCULAR RISK LESS THAN 150 mg/dL LOW RISK 150 TO 199 mg/dL BORDERLINE RISK 200 mg/dL AND GREATER HIGH RISK Cholesterol 05/11/2025 187 120 - 200 mg/dL Final LDL Calculated 05/11/2025 99 0 - 160 mg/dL Final HDL 05/11/2025 69 23 - 92 mg/dL Final Non HDL Cholesterol 05/11/2025 118 Final Total VLDL-C 05/11/2025 19 0 - 40 mg/dL Final Cholesterol/HDL Ratio 05/11/2025 2.7 mg/dL Final Hemoglobin A1C 05/11/2025 9.3 (H) 4.0 - 6.0 % Final Estimated Average Glucose 05/11/2025 220 mg/dL Final Glucose POC 05/11/2025 201 (H) 70 - 105 mg/dL Final [facility] Assessment & Plan Chest pain Primary hypertension Acute congestive heart failure ([facility]/HCC) History of CVA (cerebrovascular accident) Type 2 diabetes mellitus, with long-term current use of insulin ([facility]) . No associated orders from this encounter found during lookback period of 72 hours. Other hyperlipidemia . No associated orders from this encounter found during lookback period of 72 hours. Chronic atrial fibrillation (CMS/HCC) Chronic kidney disease Elevated troponin Angina pectoris, unstable (CMS/HCC) COrders from past 72 hours: Case Request Special Deputy Sheriff: Coronary angiography, Right heart cath; Standing Cardiac catheterization; Standing A/P This 85-year-old gentleman presented with acute on chronic heart failure. His ejection fraction is difficult to assess on recent echocardiogram, but he has known moderate to severe aortic stenosis AR, mild TR and MR. Patient has the above-stated past medical history. His states he had of stroke 3 to [address] Garcia at [facility] says was a small embolic stroke from his paroxysmal atrial fibrillation. His daughter states it was on the right side. His neurologic symptoms have cleared . Patient has moderate pulmonary hypertension with PA pressures of 64/24, wedge of 28 and had a largeV wave- indicating heart failure. Patient is presently getting goal-directed medical therapy as outlined in the cardiology consult note. Specifications are being made due to his history of renal artery stenosis. Patient had heart cath today that reveals moderate coronary artery disease with a borderline significant mid LAD lesion. I feel this 85-year-old gentleman should undergo TAVR with possible PCI of LAD if it i is felt to be clinically significant by the buffer copper. I believe the risks and benefits of CABG/AVR are too high to proceed to recommend coronary artery bypass grafting/AVR, especially with a possible history of recent cva. However I feel his history and testing warrant aortic valve replacement and would recommend TAVR. We will obtain the records of his stroke from [facility]. Negro Lopez MD Cardiac Surgery [1] History reviewed. No pertinent past medical history. [2] History reviewed. No pertinent surgical history. [3] No family history on file. [4] Allergies Allergen Reactions Aminolevulinic Acid Hcl Unknown Iodinated Contrast Media Unknown Nitroglycerin Other hypotension Simvastatin Unknown [5] Medications Prior to Admission Medication Sig Dispense Refill Last Dose/Taking acetaminophen (Tylenol) 500 mg tablet Take 1,000 mg by mouth every 6 (six) hours if needed for mildpain (1-3 pain score). aspirin 81 mg EC tablet Take 81 mg by mouth in the morning. b complex 0.4 mg tablet Take 1 tablet by mouth in the morning. bacitracin 500 unit/gram ointment Apply 1 Application topically two times daily. calcium polycarbophil (Fibercon) 625 mg tablet Take 1,250 mg by mouth in the morning. cholecalciferol (Vitamin D-3) 25 MCG (1000 UT) capsule Take 25 mcg by mouth in the morning. cloNIDine (Catapres) 0.2 mg tablet Take 0.2 mg by mouth three times daily. dicyclomine (Bentyl) 10 mg capsule Take 10 mg by mouth two times daily. empagliflozin (Jardiance) 25 mg Take 25 mg by mouth in the morning. ezetimibe (Zetia) 10 mg tablet Take 10 mg by mouth in the morning. fluticasone propion-salmeteroL 113 mcg-14 mcg/actuation aero powdr breath act w/sensor Inhale 1 Inhalation two times daily. furosemide (Lasix) 40 mg tablet Take 40 mg by mouth in the morning. glimepiride (Amaryl) 4 mg tablet Take 8 mg by mouth before breakfast. insulin lispro (HumaLOG) 100 unit/mL injection pen Inject 2-10 Units under the skin with breakfast,with lunch, and with evening meal. labetalol (Normodyne) 300 mg tablet Take 300 mg by mouth three times daily. linaGLIPtin (Tradjenta) 5 mg tablet Take 5 mg by mouth in the morning. loratadine (Claritin) 10 mg tablet Take 10 mg by mouth in the morning. magnesium oxide 500 mg magnesium tablet Take 500 mg by mouth three times daily. metFORMIN (Glucophage) 500 mg tablet Take 500 mg by mouth three times daily. omeprazole (PriLOSEC) [address] capsule Take 20 mg by mouth before breakfast. Do not crush or chew. pioglitazone (Actos) 45 mg tablet Take 45 mg by mouth in the morning. polyethylene glycol (Glycolax) oral powder Take 17 g by mouth if needed each day (constipation). potassium chloride CR (Klor-Con M10) 10 mEq ER tablet Take 20 mEq by mouth in the morning. Do not crush or chew. prednisoLONE acetate (Pred Mild) 0.12 % ophthalmic suspension Administer 1 drop into both eyes two times daily. primidone (Mysoline) 50 mg tablet Take 100 mg by mouth two times daily. psyllium (Metamucil) 0.52 gram capsule Take 1.52 g by mouth in the morning. spironolactone (Aldactone) 25 mg tablet Take 25 mg by mouth in the morning. tamsulosin (Flomax) 0.4 mg 24 hr capsule Take 0.4 mg by mouth in the morning. tiotropium (Spiriva Respimat) 1.25 mcg/actuation inhaler Inhale 2 puffs in the morning. * Shamar Nolan MD - 05/11/2025 10:05 AM EDT H&P reviewed. The patient was examined and there are no changes to the H&P. Will proceed with RHC and coronary angiogram for acute on chronic HFpEF and aortic stenosis work up. Source Note - Stevie Nuñez MD - 05/10/2025 2:27 PM EDT Images from the original note were not included. Cardiology Consult Note Reason for Consult: Acute on chronic HFpEF, hypertensive urgency HPI: Nadir Beth is a 85 y.o. male with past medical history of A-fib on Xarelto, hypertension, HFpEF, CKD, recent history of CVA 4 months back, renal artery stenosis transferred from [facility] for acute on chronic heart failure. Patient had history of stroke 4 months back and was in rehab patient has been having progressive lower extremity edema for few days. Patient was advised to increase his Lasix from 20 to 40 mg and blood work was done which showed BNP 6214 and was advised to go to the ED. In [place] ED chest x-ray showed pulmonary vascular congestion with right-sided pleural effusion and EKG showed A-fib, patient was found to be hypertensive with blood pressure 190/68. Patient follows up with Dr. Bland who had scheduled right heart cath on 05/10/2025. Echo done today showed unable to obtain EF secondary to rhythm however it was preserved, severe RA and LA enlargement, moderate to severe , AR, mild MR and TR. Cardiology ROS: Review of Systems Respiratory: Negative for cough and shortness of breath. Cardiovascular: Negative for chest pain and leg swelling. Neurological: Negative for dizziness, light-headedness and headaches. Past Medical History He has no past medical history on file. Surgical History He has no past surgical history on file. Social History He reports that he has quit smoking. His smoking use included cigarettes. He has never used smokeless tobacco. No history on file for alcohol use and drug use. Family History Family History[1] Allergies Aminolevulinic acid hcl, Iodinated contrast media, Nitroglycerin, and Simvastatin Medications Current Outpatient Medications Medication Instructions acetaminophen (TYLENOL) 1,000 mg, oral, Every 6 hours PRN aspirin 81 mg, oral, Daily b complex 0.4 mg tablet 1 tablet, oral, Daily bacitracin 500 unit/gram ointment 1 Application, Topical, 2 times daily calcium polycarbophil (FIBERCON) 1,250 mg, oral, Daily cholecalciferol (VITAMIN D-3) 25 mcg, oral, Daily cloNIDine (CATAPRES) 0.2 mg, oral, 3 times daily dicyclomine (BENTYL) 10 mg, oral, 2 times daily empagliflozin (JARDIANCE) 25 mg, oral, Daily ezetimibe (ZETIA) 10 mg, oral, Daily fluticasone propion-salmeteroL 113 mcg-14 mcg/actuation aero powdr breath act w/sensor 1 Inhalation, inhalation, 2 times daily furosemide (LASIX) 40 mg, oral, Daily glimepiride (AMARYL) 8 mg, oral, Daily before breakfast insulin lispro (HUMALOG) 2-10 Units, subcutaneous, 3 times daily with meals labetalol (NORMODYNE) 300 mg, oral, 3 times daily linaGLIPtin (TRADJENTA) 5 mg, oral, Daily loratadine (CLARITIN) 10 mg, oral, Daily magnesium oxide 500 mg, oral, 3 times daily metFORMIN (GLUCOPHAGE) 500 mg, oral, 3 times daily omeprazole (PRILOSEC) 20 mg, oral, Daily before breakfast, Do not crush or chew. pioglitazone (ACTOS) 45 mg, oral, Daily polyethylene glycol (Glycolax) oral powder 17 g, oral, Daily PRN potassium chloride CR (Klor-Con M10) 10 mEq ER tablet 20 mEq, oral, Daily, Do not crush or chew. prednisoLONE acetate (Pred Mild) 0.12 % ophthalmic suspension 1 drop, Both Eyes, 2 times daily primidone (MYSOLINE) 100 mg, oral, 2 times daily psyllium (METAMUCIL) 1.52 g, oral, Daily spironolactone (ALDACTONE) 25 mg, oral, Daily tamsulosin (FLOMAX) 0.4 mg, oral, Daily tiotropium (Spiriva Respimat) 1.25 mcg/actuation inhaler 2 puffs, inhalation, Daily Prescriptions Prior to Admission[2] Last Recorded Vitals Patient Vitals for the past 24 hrs: BP Temp Temp src Pulse Resp SpO2 Height Weight 05/10/25 1211 156/71 36.5 ??C (97.7 ??F) Temporal 75 13 95 % -- -- 05/10/25 1005 172/80 -- -- 89 -- -- -- -- 05/10/25 0752 (!) 178/92 36.6 ??C (97.9 ??F) Temporal 99 19 93 % -- -- 05/10/25 0725 -- -- Temporal -- -- -- -- -- 05/10/25 0600 (!) 188/95 -- -- 91 15 93 % -- -- 05/10/25 0526 -- -- -- -- -- -- -- 81 kg (178 lb 9.2 oz) 05/10/25 0500 (!) 190/68 -- -- 95 18 91 % -- -- 05/10/25 0400 174/80 36.6 ??C (97.9 ??F) -- 78 14 97 % -- -- 05/10/25 0300 -- -- -- -- -- -- 1.828 m (5' 11.97 ) 81 kg (178 lb 9.2 oz) 05/10/25 0252 (!) 189/89 36.5 ??C (97.7 ??F) -- 88 17 91 % -- -- Physical Examination: Physical Exam Cardiovascular: Rate and Rhythm: Normal rate. Rhythm irregular. Heart sounds: Murmur (Pansystolic murmur on aortic and mitral region) heard. Pulmonary: Effort: Pulmonary effort is normal. Breath sounds: Rales present. Abdominal: General: Abdomen is flat. Palpations: Abdomen is soft. Musculoskeletal: Cervical back: Normal range of motion. Right lower leg: No edema. Left lower leg: No edema. Neurological: General: No focal deficit present. Relevant Lab Results No results found for this or any previous visit (from the past 4464 hours). No results found for: CKTOTAL , CKMB , CKMBINDEX , TROPONINI Complete Echo (TTE) w/wo Imaging Agent, Strain, 3D, Bubble Study Result Date: 05/10/2025 1 1 [facility] Heart [facility] [address] [place] [address] [phone] (fax) Echocardiogram-[facility] Name: NADIR BETH Study Date: 05/10/2025 09:19 AM B/P: 178 mmHg/92 mmHg HR: 104 bpm Date of : 1940 Location: [facility] Height: 72 in. Age: 85 year(s) Patient Room: 3122 Weight: 178 lb. Gender: Male Patient Status: InPt BSA: 2.03 m2 Indication: elevated troponins, dyspnea, ckd, Pericardial Effusion, Atrial Fibrillation Examination: Echocardiogram (Complete) Image Quality: Fair Patient Consent: Procedure explained to patient Conclusions Left Ventricle: The left ventricle is normal size. Global left ventricular systolic function is difficult to assess due to rhythm but appears preserved. Left ventricular wall thickness is increased. Right Ventricle: The right ventricle is normal in size. Normal right ventricular systolic function. Doppler studies suggest severely elevated right sided pressures. Left Atrium: The left atrium is severely enlarged. Mitral Valve: Mild mitral regurgitation. Aortic Valve: Mild aortic valve regurgitation. Moderate to severe aortic stenosis. Overall Conclusions: Doppler velocities may be underestimated due to rhythm. Measurements Left Ventricle Label Value Normal Value LVOTd 1.9 cm (19cm - 21cm) LVOT VTI 21 cm (18cm - 22cm) LVOT PGmax 3 mmHg LVDd, 2D 4.84 cm (4.2cm - 5.9cm) LVDs, 2D 3.74 cm (2.1cm - 4cm) IVSd, 2D 1.27 cm (0.6cm - 1.1cm) LVPWd, 2D 1.16 cm (0.6cm - 1cm) LV Mass, 2D ASE 225.96 g LV Mass Index, 2D ASE 111.3 g/m?? (50g/m?? - 102.4g/m??) RWT, MM 0.48 (0 - 0.42) LVSVI, 2D 24.6 ml/m2 LVOT PGmean 2 mmHg LVSV_LVOT 60 ml Right Ventricle Label Value Normal Value RVDd, 2D 4.14 cm (1.9cm - 3.8cm) TAPSE 1.47 cm Left Atrium Label Value Normal Value LA Volume, B P 134 ml (18ml - 58ml) LAESV index, BP 66 ml/m?? Right Atrium Label Value Normal Value RA Area 30.6cm?? Aortic Valve Label Value Normal Value AV DVI 0.29 AV VTI 61.5 cm Mitral Valve Label Value Normal Value MV E Vmax 1.1 m/s MV E/E' lateral 14.6 MV E' lateral 0.08 m/s Tricuspid Valve Label Value Normal Value RA Pressure 3 mmHg RVSP 73 mmHg Aorta Label Value Normal Value AoRoot, 2D 3.99 cm (1.4cm- 3.8cm) Great Vessels Label Value Normal Value IVC 2 cm (1.2cm - 2.3cm) Valvular Assessment LVOT 0.7 - 1.1 m/sec Aortic Valve 1.0 - 1.7 m/sec Mitral Valve 0.6 - 1.3 m/sec Tricuspid Valve 0.3 - 0.7 m/sec Pulmonic Valve 0.6 - 0.9 m/sec Regurgitation Mild Mild Mild No Stenosis ModS No No No Max Velocity 0.90 m/sec 3.06 m/s 1.10 m/sec 0.95 m/s Max Gradient 37.00 mmHg 4.00 mmHg Mean Gradient 20.00 mmHg Valve Area 0.8 cm?? Findings Left Ventricle: The left ventricle is normal size. Global left ventricular systolic function is difficult to assess due to rhythm but appears preserved. Left ventricular wall thickness is increased. Right Ventricle: The right ventricle is normal in size. Normal right ventricular systolic function. Doppler studies suggest severely elevated right sided pressures. LeftAtrium: The left atrium is severely enlarged. Right Atrium: The right atrium is severely enlarged. Mitral Valve: There is nonspecific thickening of the mitral valve leaflet. Mild mitral regurgitation. No mitral valve stenosis. There is mild to moderate mitral annular calcification. Aortic Valve: Severe aortic valve calcification is present. Mild aortic valve regurgitation. Moderate to severe aortic stenosis. Tricuspid Valve: Normal tricuspid valve. Mild tricuspid regurgitation. No tricuspid valve stenosis. Pulmonic Valve: Normal pulmonary valve. No pulmonary regurgitation. No pulmonic valve stenosis. Aorta: The aortic root exhibits mild dilatation. Great Vessels: IVC: The IVC is normal in size. Respiratory inspiration greater than 50%. Pericardium: There is a small pericardial effusion. Aleft pleural effusion is seen. Procedure Staff Reading Group: [facility] National Sales Representative: SEAN Bailey, RDCS Ordering Physician: ESTUARDO REED Electronically signed by MD Geri Delarosa on05/10/2025 at 10:24 AM No nuclear medicine results found for the past 12 months Relevant Imaging Results Complete Echo (TTE) w/wo Imaging Agent, Strain, 3D, Bubble Study 1 1 [facility] Heart Station [address] [phone] (fax) Echocardiogram-[facility] Name: NADIR BETH Study Date: 05/10/2025 09:19 AM B/P: 178 mmHg/92 mmHg HR: 104 bpm Date of : 1940 Location: [facility] Height: 72 in. Age: 85 year(s) Patient Room: 3122 Weight: 178 lb. Gender: Male Patient Status: InPt BSA: 2.03 m2 Indication: elevated troponins, dyspnea, ckd, Pericardial Effusion, Atrial Fibrillation Examination: Echocardiogram (Complete) Image Quality: Fair Patient Consent: Procedure explained to patient Conclusions Left Ventricle: The left ventricle is normal size. Global left ventricular systolic function is difficult to assess due to rhythm but appears preserved. Left ventricular wall thickness is increased. Right Ventricle: The right ventricle is normal in size. Normal right ventricular systolic function. Doppler studies suggest severely elevated right sided pressures. Left Atrium: The left atrium is severely enlarged. Mitral Valve: Mild mitral regurgitation. Aortic Valve: Mild aortic valve regurgitation. Moderate to severe aortic stenosis. Overall Conclusions: Doppler velocities may be underestimated due to rhythm. Measurements Left Ventricle Label Value Normal Value LVOTd 1.9 cm (19cm - 21cm) LVOT VTI 21 cm (18cm - 22cm) LVOT PGmax 3 mmHg LVDd, 2D 4.84 cm (4.2cm - 5.9cm) LVDs, 2D 3.74 cm (2.1cm - 4cm) IVSd, 2D 1.27 cm (0.6cm - 1.1cm) LVPWd, 2D 1.16 cm (0.6cm - 1cm) LV Mass, 2D ASE 225.96 g LV Mass Index, 2D ASE 111.3 g/m?? (50g/m?? - 102.4g/m??) RWT, MM 0.48 (0 - 0.42) LVSVI, 2D 24.6 ml/m2 LVOT PGmean 2 mmHg LVSV_LVOT 60 ml Right Ventricle Label Value Normal Value RVDd, 2D 4.14 cm (1.9cm - 3.8cm) TAPSE 1.47 cm Left Atrium Label Value Normal Value LA Volume, BP 134 ml (18ml - 58ml) LAESV index, BP 66 ml/m?? Right Atrium Label Value Normal Value RA Area 30.6 cm?? Aortic Valve Label Value Normal Value AV DVI 0.29 AV VTI 61.5 cm Mitral Valve Label Value Normal Value MV E Vmax 1.1 m/s MV E/E' lateral 14.6 MV E' lateral 0.08 m/s Tricuspid Valve Label Value Normal Value RA Pressure 3 mmHg RVSP 73 mmHg Aorta Label Value Normal Value AoRoot, 2D 3.99 cm (1.4cm - 3.8cm) Great Vessels Label Value Normal Value IVC 2 cm (1.2cm - 2.3cm) Valvular Assessment LVOT 0.7 - 1.1 m/sec Aortic Valve 1.0 - 1.7 m/sec Mitral Valve 0.6 - 1.3 m/sec Tricuspid Valve 0.3 - 0.7 m/sec Pulmonic Valve 0.6 - 0.9 m/sec Regurgitation Mild Mild Mild No Stenosis ModS No No No Max Velocity 0.90 m/sec 3.06 m/s 1.10 m/sec 0.95 m/s Max Gradient 37.00 mmHg 4.00 mmHg Mean Gradient 20.00 mmHg Valve Area 0.8 cm?? Findings Left Ventricle: The left ventricle is normal size. Global left ventricular systolic function is difficult to assess due to rhythm but appears preserved. Left ventricular wall thickness is increased. Right Ventricle: The right ventricle is normal in size. Normal right ventricular systolic function. Doppler studies suggest severely elevated right sided pressures. Left Atrium: The left atrium is severely enlarged. Right Atrium: The right atrium is severely enlarged. Mitral Valve: There is nonspecific thickening of the mitral valve leaflet. Mild mitral regurgitation. No mitral valve stenosis. There is mild to moderate mitral annular calcification. Aortic Valve: Severe aortic valve calcification is present. Mild aortic valve regurgitation. Moderate to severe aortic stenosis. Tricuspid Valve: Normal tricuspid valve. Mild tricuspid regurgitation. No tricuspid valve stenosis. Pulmonic Valve: Normal pulmonary valve. No pulmonary regurgitation. No pulmonic valve stenosis. Aorta: The aortic root exhibits mild dilatation. Great Vessels: IVC: The IVC is normal in size. Respiratory inspiration greater than 50%. Pericardium: There is a small pericardial effusion. A left pleural effusion is seen. Procedure Staff Reading Group: [facility] National Sales Representative: Bianca Armendariz BS, RDCS Ordering Physician: ESTUARDO REED SSMENT Acute on chronic heart failure with preserved EF Echo 05/10 showed EF preserved difficult access secondary to rhythm, moderate to severe and AR, mild MR and TR Mildly elevated troponin most likely secondary to chronic myocardial injury Troponin 21--> 26 Nonrheumatic aortic valve stenosis Paroxysmal A-fib ([id number]) Hypertension Recent stroke History of renal artery stenosis status post left renal artery stent 2014 CKD PLAN Patient scheduled for right heart cath today with Dr. Ventura for aortic valve repair Continue heparin drip, plan to switch to oral Eliquis after cath GDMT: Farxiga, labetalol and Aldactone, uptitrate after Cath, holding JAY/ARB's for history of renal artery stenosis Currently diuresis with IV Lasix 40 3 times daily Strict I&O's Remainder of care as per primary team and other consultative services Cardiology team will continue to follow This note was, at least in part, completed using a voice telescope repairer system. Every effort was made to ensure accuracy. However, inadvertent computerized telescope repairer errors may be present. Stevie Nuñez MD PGY-2 Internal Medicine Cardiology Consult Service [facility] [1] No family history on file. [2] Medications Prior to Admission Medication Sig Dispense Refill Last Dose/Taking acetaminophen (Tylenol) 500 mg tablet Take 1,000 mg by mouth every 6 (six) hours if needed for mildpain (1-3 pain score). aspirin 81 mg EC tablet Take 81 mg by mouth in the morning. b complex 0.4 mg tablet Take 1 tablet by mouth in the morning. bacitracin 500 unit/gram ointment Apply 1 Application topically two times daily. calcium polycarbophil (Fibercon) 625 mg tablet Take 1,250 mg by mouth in the morning. cholecalciferol (Vitamin D-3) 25 MCG (1000 UT) capsule Take 25 mcg by mouth in the morning. cloNIDine (Catapres) 0.2 mg tablet Take 0.2 mg by mouth three times daily. dicyclomine (Bentyl) 10 mg capsule Take 10 mg by mouth two times daily. empagliflozin (Jardiance) 25 mg Take 25 mg by mouth in the morning. ezetimibe (Zetia) 10 mg tablet Take 10 mg by mouth in the morning. fluticasone propion-salmeteroL 113 mcg-14 mcg/actuation aero powdr breath act w/sensor Inhale 1 Inhalation two times daily. furosemide (Lasix) 40 mg tablet Take 40 mg by mouth in the morning. glimepiride (Amaryl) 4 mg tablet Take 8 mg by mouth before breakfast. insulin lispro (HumaLOG) 100 unit/mL injection pen Inject 2-10 Units under the skin with breakfast,with lunch, and with evening meal. labetalol (Normodyne) 300 mg tablet Take 300 mg by mouth three times daily. linaGLIPtin (Tradjenta) 5 mg tablet Take 5 mg by mouth in the morning. loratadine (Claritin) 10 mg tablet Take 10 mg by mouth in the morning. magnesium oxide 500 mg magnesium tablet Take 500 mg by mouth three times daily. metFORMIN (Glucophage) 500 mg tablet Take 500 mg by mouth three times daily. omeprazole (PriLOSEC) [address] capsule Take 20 mg by mouth before breakfast. Do not crush or chew. pioglitazone (Actos) 45 mg tablet Take 45 mg by mouth in the morning. polyethylene glycol (Glycolax) oral powder Take 17 g by mouth if needed each day (constipation). potassium chloride CR (Klor-Con M10) 10 mEq ER tablet Take 20 mEq by mouth in the morning. Do not crush or chew. prednisoLONE acetate (Pred Mild) 0.12 % ophthalmic suspension Administer 1 drop into both eyes two times daily. primidone (Mysoline) 50 mg tablet Take 100 mg by mouth two times daily. psyllium (Metamucil) 0.52 gram capsule Take 1.52 g by mouth in the morning. spironolactone (Aldactone) 25 mg tablet Take 25 mg by mouth in the morning. tamsulosin (Flomax) 0.4 mg 24 hr capsule Take 0.4 mg by mouth in the morning. tiotropium (Spiriva Respimat) 1.25 mcg/actuation inhaler Inhale 2 puffs in the morning. Cosigned by Azeem Green MD at 05/10/2025 7:15 PM EDT * Estuardo Reed MD - 05/10/2025 4:12 AM EDT Images from the original note were not included. Hospital Medicine History and Physical 05/10/2025 4:12 AM THE HOSPITALIST TEAM PREFERS TO USE [employer] CHAT FOR NON-URGENT COMMUNICATION 7AM- 7PM. IF I DO NOT RESPOND WITHIN 20 MINUTES OR URGENT MATTERS, PLEASE CALL THROUGH THE APPEALS COURT [employer]. FROM 7PM-7AM, PLEASE PAGE [phone](COVR). Chief Complaint No chief complaint on file. History of Present Illness Nadir Turner is an 85 y.o. male admitted as a direct transfer from [facility] where he presented following outpatient labs done by his PCP which included a BNP which was noted to be 60 214 and progressive lower extremity edema. He was in the ER where his workup showed increased pulmonary vascular congestion and right-sided pleural effusion at the time of evaluation the labs showed hemoglobin of 9.9 hematocrit 31.6 platelet 287 BUN 30 creatinine 1.9 estimated GFR 34 glucose was 175 and troponin 16.4 potassium was 4.7 EKG showed A-fib chest x-ray pulm vascular congestion and right-sided effusion. Patient awake alert in no distress denies chest pain cough shortness of breath he does complain of having dyspnea on exertion denies PND orthopnea no dizziness lightheaded no syncope hehas history of stroke in the past and history of diabetes chronic kidney disease pericardial effusion and history of atrial fibrillation Review of System and Physical Exam Temp: [36.5 ??C (97.7 ??F)] 36.5 ??C (97.7 ??F) Heart Rate: [88] 88 Resp: [17] 17 BP: (189)/(89) 189/89 Physical Exam Vitals reviewed. Constitutional: Appearance: Normal appearance. HENT: Head: Normocephalic and atraumatic. Nose: Nose normal. Mouth/Throat: Mouth: Mucous membranes are moist. Pharynx: Oropharynx is clear. Eyes: Extraocular Movements: Extraocular movements intact. Conjunctiva/sclera: Conjunctivae normal. Pupils: Pupils are equal, round, and reactive to light. Cardiovascular: Rate and Rhythm: Normal rate. Pulses: Normal pulses. Heart sounds: Normal heart sounds. Comments: [id number] s4 systolic murmur Pulmonary: Effort: Pulmonary effort is normal. Breath sounds: Rales present. Abdominal: General: Abdomen is flat. Bowel sounds are normal. Palpations: Abdomen is soft. Musculoskeletal: General: Normal range of motion. Cervical back: Normal range of motion and neck supple. Right lower leg: Edema present. Left lower leg: Edema present. Skin: General: Skin is warm and dry. Capillary Refill: Capillary refill takes 2 to 3 seconds. Neurological: Mental Status: He is alert. Mental status is at baseline. Psychiatric: Mood and Affect: Mood normal. Review of Systems Constitutional: Positive for activity change and fatigue. HENT: Negative. Eyes: Negative. Respiratory: Negative. Cardiovascular: Negative. Gastrointestinal: Negative. Endocrine: Negative. Genitourinary: Negative. Musculoskeletal: Negative. Allergic/Immunologic: Negative. Neurological: Negative. Hematological: Negative. Psychiatric/Behavioral: Negative. Assessment and Plan Assessment & Plan Primary hypertension Adjust antihypertensives low-salt diet with renal insufficiency unable to start JAY or ARB Acute congestive heart failure (CMS/HCC) Per review of chart patient has diastolic heart failure had history of pericardial effusion as wellwe will optimize guideline directed medical therapy with limitation due to renal insufficiency obtain echocardiogram cycle troponins cardiology to see him History of CVA (cerebrovascular accident) On aspirin statin with deconditioning and gait abnormality with fall risk PT OT to see him Type 2 diabetes mellitus, with long-term current use of insulin (CMS/[facility]) Insulin blood sugar check diet Other hyperlipidemia Antilipemic agents diet Chronic atrial fibrillation (CMS/[facility]) CHADS2 DS vascular score is 7 currently on Eliquis Chronic kidney disease stage IIIb avoid nephrotoxic meds hypovolemia nephrology consult CODE STATUS DNR CCA VTE Prophylaxis: Esther ----- Focus of this inpatient stay will remain on problems that need acute care setting for care. We will review available studies and will order additional labs, imaging and other studies as appropriate. As needed medicines are ordered as appropriate. VTE Prophylaxis will be ordered as appropriate. Please see above for management plan for individual hospital problems. Home medications are reviewed and will be continued as appropriate. Patient will be continued to be followed during this hospital stay by a member of [facility]. Past Medical History Medical History[1] Past Surgical History Surgical History[2] Social History Social History Socioeconomic History Marital status: Not on file Spouse name: Not on file Number of children: Not on file Years of education: Not on file Highest education level: Not on file Occupational History Not on file Tobacco Use Smoking status: Former Types: Cigarettes Smokeless tobacco: Never Substance and Sexual Activity Alcohol use: Not on file Drug use: Not on file Sexual activity: Not on file Other Topics Concern Not on file Social History Narrative Not on file Social Drivers of Health Financial Resource Strain: Low Risk (05/10/2025) Overall Financial Resource Strain (CARDIA) Difficulty of Paying Living Expenses: Not hard at all Food Insecurity: No Food Insecurity (05/10/2025) Hunger Vital Sign Worried About Running Out of Food in the Last Year: Never true Ran Out of Food in the Last Year: Not on file Transportation Needs: No Transportation Needs (05/10/2025) Transportation Lack of Transportation (Medical): No Lack of Transportation (Non-Medical): Not on file Physical Activity: Not on file Stress: Not on file Social Connections: Not on file Intimate Partner Violence: Unknown (05/10/2025) Humiliation, Afraid, Rape, and Kick questionnaire Fear of Current or Ex-Partner: No Emotionally Abused: Not on file Physically Abused: Not on file Sexually Abused: Not on file Housing Stability: Low Risk (05/10/2025) Housing Stability Vital Sign Unable to Pay for Housing in the Last Year: No Number of Times Moved in the Last Year: Not on file Homeless in the Last Year: No Family History family history is not on file. Allergies is allergic to aminolevulinic acid hcl, iodinated contrast media, nitroglycerin, and simvastatin. Prior to Admission Medications Prescriptions Prior to Admission[3] Labs Labs Reviewed CBC AND DIFFERENTIAL Narrative: The following orders were created for panel order CBC and differential. Procedure Abnormality Status --------- ------ CBC auto differential[[id number]] Please view results for these tests on the individual orders. COMPREHENSIVE METABOLIC PANEL MAGNESIUM TSH3 REFLEX TO FT4 HIGH SENSITIVITY TROPONIN I HIGH SENSITIVITY TROPONIN I HIGH SENSITIVITY TROPONIN I CBC WITH AUTO DIFFERENTIAL Imaging No image results found. Signed Estuardo Reed MD [facility] 05/10/2025 4:12 AM [1] History reviewed. No pertinent past medical history. [2] History reviewed. No pertinent surgical history. [3] Medications Prior to Admission Medication Sig Dispense Refill Last Dose/Taking acetaminophen (Tylenol) 500 mg tablet Take 1,000 mg by mouth every 6 (six) hours if needed for mildpain (1-3 pain score). aspirin 81 mg EC tablet Take 81 mg by mouth in the morning. b complex 0.4 mg tablet Take 1 tablet by mouth in the morning. bacitracin 500 unit/gram ointment Apply 1 Application topically two times daily. calcium polycarbophil (Fibercon) 625 mg tablet Take 1,250 mg by mouth in the morning. cholecalciferol (Vitamin D-3) 25 MCG (1000 UT) capsule Take 25 mcg by mouth in the morning. cloNIDine (Catapres) 0.2 mg tablet Take 0.2 mg by mouth three times daily. dicyclomine (Bentyl) 10 mg capsule Take 10 mg by mouth two times daily. empagliflozin (Jardiance) 25 mg Take 25 mg by mouth in the morning. ezetimibe (Zetia) 10 mg tablet Take 10 mg by mouth in the morning. fluticasone propion-salmeteroL 113 mcg-14 mcg/actuation aero powdr breath act w/sensor Inhale 1 Inhalation two times daily. furosemide (Lasix) 40 mg tablet Take 40 mg by mouth in the morning. glimepiride (Amaryl) 4 mg tablet Take 8 mg by mouth before breakfast. insulin lispro (HumaLOG) 100 unit/mL injection pen Inject 2-10 Units under the skin with breakfast,with lunch, and with evening meal. labetalol (Normodyne) 300 mg tablet Take 300 mg by mouth three times daily. linaGLIPtin (Tradjenta) 5 mg tablet Take 5 mg by mouth in the morning. loratadine (Claritin) 10 mg tablet Take 10 mg by mouth in the morning. magnesium oxide 500 mg magnesium tablet Take 500 mg by mouth three times daily. metFORMIN (Glucophage) 500 mg tablet Take 500 mg by mouth three times daily. omeprazole (PriLOSEC) [address] capsule Take 20 mg by mouth before breakfast. Do not crush or chew. pioglitazone (Actos) 45 mg tablet Take 45 mg by mouth in the morning. polyethylene glycol (Glycolax) oral powder Take 17 g by mouth if needed each day (constipation). potassium chloride CR (Klor-Con M10) 10 mEq ER tablet Take 20 mEq by mouth in the morning. Do not crush or chew. prednisoLONE acetate (Pred Mild) 0.12 % ophthalmic suspension Administer 1 drop into both eyes two times daily. primidone (Mysoline) 50 mg tablet Take 100 mg by mouth two times daily. psyllium (Metamucil) 0.52 gram capsule Take 1.52 g by mouth in the morning. spironolactone (Aldactone) 25 mg tablet Take 25 mg by mouth in the morning. tamsulosin (Flomax) 0.4 mg 24 hr capsule Take 0.4 mg by mouth in the morning. tiotropium (Spiriva Respimat) 1.25 mcg/actuation inhaler Inhale 2 puffs in the morning. documented in this encounter Consult Notes * Negro Lopez MD - 05/11/2025 4:38 PM EDTAssociated Order(s): IP CONSULT TO CARDIOTHORACIC SURGERY Reason For Consult aortic stenosis Referring Provider: Mesha Nolan MD History Of Present Illness Nadir Beth is a 85 y.o. male presenting with acute on chronic heart failure. He was found tohave a BMP greater than [address] Sung's office in [place] yesterday. He also had signs of congestive heart failure with effusion in the right chest and peripheral edema; patient was treated with increasing Lasix. He was referred to Dr. Cisneros who admitted the patient. The patient's ejection fraction was difficult to assess on recent echocardiogram. Patient has known moderate-severe aortic stenosis with a mean gradient of 20 maximum, max gradient of 38, and aortic valve area of 0.8. The patient has paroxysmal atrial fibrillation on Xarelto. His states he has had a stroke 4 weeks agothat manifested with difficulty speaking and lower leg paresis. He saw Dr. 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 Patient is now neurologically intact; they state the sx lasted for 2 days. Patient also had mildly elevated troponins on this admission, probably from chronic myocardial injury; troponin went from 2 -. Patient had cardiac catheterization today that reveals moderate disease : there are multiple 30 to 40% non-significant coronary lesions; however; there is a mid LAD with 50% lesion which may need PCI. It also should be noted the patient had a right heart cath that revealed RV pressure of 62/30 , PA pressure of 64/20,mild MR, wedge of 28 with a large V wave of 40. RA pressure was 12. 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; no recurrence Hx Lap cholecystectomy Hx bilateral cataract removal Family History Family History[3] Non contributory Social History Smoking -10 pack year;quit 1960 Social History Socioeconomic History Marital status: Spouse name: None Number of children: None Years of education: None Highest education level: None Occupational History None Tobacco Use Smoking status: Former Types: Cigarettes Smokeless tobacco: Never Substance and Sexual Activity Alcohol use: None Drug use: None Sexual activity: None Other Topics Concern None Social History Narrative None Social Drivers of Health Financial Resource Strain: Low Risk (05/10/2025) Overall Financial Resource Strain (CARDIA) Difficulty of Paying Living Expenses: Not hard at all Food Insecurity: No Food Insecurity (05/10/2025) Hunger Vital Sign Worried About Running Out of Food in the Last Year: Never true Ran Out of Food in the Last Year: Not on file Transportation Needs: No Transportation Needs (05/10/2025) Transportation Lack of Transportation (Medical): No Lack of Transportation (Non-Medical): Not on file Physical Activity: Not on file Stress: Not on file Social Connections: Not on file Intimate Partner Violence: Unknown (05/10/2025) Humiliation, Afraid, Rape, and Kick questionnaire Fear of Current or Ex-Partner: No Emotionally Abused: Not on file Physically Abused: Not on file Sexually Abused: Not on file Housing Stability: Low Risk (05/10/2025) Housing Stability Vital Sign Unable to Pay for Housing in the Last Year: No Number of Times Moved in the Last Year: Not on file Homeless in the Last Year: No Allergies Allergies[4] Aminovulinic acid, iodinated contrast, NTG, Simvastatin Medications Prescriptions Prior to Admission[5] See nursing log Review of Systems Pertinent positives- negative for neurologic sx,negative for CP; recent SOB worsening,Negative for SX; no cough; no GI sx; Last Recorded Vitals Patient Vitals for the past 24 hrs: BP Temp Temp src Pulse Resp SpO2 Weight 05/11/25 1330 140/64 -- -- 81 (!) 27 94 % -- 05/11/25 1315 (!) 165/93 -- -- 87 17 98 % -- 05/11/25 1300 163/68 -- -- 72 21 99 % -- 05/11/25 1245 148/58 -- -- 81 19 99 % -- 05/11/25 1230 148/62 -- -- 76 17 97 % -- 05/11/25 1215 131/69 -- -- 68 16 98 % -- 05/11/25 1200 145/61 -- -- 86 12 99 % -- 05/11/25 1145 151/68 -- -- 71 18 98 % -- 05/11/25 1138 152/63 -- -- 73 17 98 % -- 05/11/25 1120 150/61 -- -- 73 22 -- -- 05/11/25 1106 155/67 -- -- 77 17 93 % -- 05/11/25 1031 -- -- -- -- -- 98 % -- 05/11/25 1030 145/60 -- -- 77 14 98 % -- 05/11/25 0800 149/57 36.5 ??C (97.7 ??F) Temporal 72 14 97 % -- 05/11/25 0600 138/54 -- -- 75 11 98 % -- 05/11/25 0547 -- -- -- -- -- -- 80 kg (176 lb 5.9 oz) 05/11/25 0400 147/61 36.6 ??C (97.9 ??F) -- 82 14 98 % -- 05/11/25 0200 135/60 -- -- 82 12 97 % -- 05/11/25 0000 127/50 36.5 ??C (97.7 ??F) -- 78 13 95 % -- 05/10/25 1738 134/60 -- -- 71 13 97 % -- 05/10/25 1647 146/71 -- -- -- -- -- -- Physical Exam NAD, alert and oriented x3 Faint carotid bruit on left CV- irreg irreg rhythm,ANGELI RUSB,syst murmur at apex Pulm- Decreased BS right base, otherwise clear. Rales present bilaterall, ABD_ soft nontender, pos BS, Mild distention, upper midline scar MUS/Skel no calf tenderness,minimal edema Neurovasc No focal deficits,Physiologic Good peripheral pulses, relevant Results Admission on 05/10/2025 Component Date Value Ref Range Status Sodium 05/10/2025 139 136 - 145 mmol/L Final Potassium 05/10/2025 3.6 3.5 - 5.1 mmol/L Final Chloride 05/10/2025 101 98 - 107 mmol/L Final CO2 05/10/2025 26 21 - 31 mmol/L Final Anion Gap 05/10/2025 16 7 - 20 mmol/L Final BUN 05/10/2025 28 (H) 7 - 25 mg/dL Final Creatinine 05/10/2025 1.45 (H) 0.70 - 1.30 mg/dL Final BUN/Creatinine Ratio 05/10/2025 19.3 Final Glucose 05/10/2025 156 (H) 70 - 100 mg/dL Final Calcium 05/10/2025 8.5 (L) 8.6 - 10.3 mg/dL Final AST 05/10/2025 14 13 - 39 U/L Final ALT (SGPT) 05/10/2025 7 7 - 52 U/L Final Alkaline Phosphatase 05/10/2025 72 34 - 104 U/L Final Total Protein 05/10/2025 6.2 6.0 - 8.3 g/dL Final Albumin 05/10/2025 3.5 3.5 - 5.7 g/dL Final Total Bilirubin 05/10/2025 0.4 0.3 - 1.0 mg/dL Final eGFR 05/10/2025 46.9 (L) >60.0 mL/min/1.73m*2 Final [facility]???s estimated glomerular filtration rate (eGFR) will no longer include consideration of race in its calculation. The National Kidney Foundation???s eGFR Task Force developed new recommendations for the estimation of the glomerular filtration rate in the [place] They recommend immediate implementation of the new equation refit without the race variable in all laboratories because the calculation does not include race. In addition to not including race in the calculation and reporting, it included diversity in its development, and has acceptable performance characteristics and potential consequences that do not disproportionately affect any one group of individuals. Magnesium 05/10/2025 2.0 1.9 - 2.7 mg/dL Final TSH 05/10/2025 1.34 0.34 - 5.60 mIU/L Final High Sensitivity Troponin I 05/10/2025 21 (H) <20 ng/L Final High Sensitivity Troponin I 05/10/2025 21 (H) <20 ng/L Final High Sensitivity Troponin I 05/10/2025 26 (H) <20 ng/L Final Auto WBC 05/10/2025 10.50 4.00 - 10.60 10*3/uL Final RBC 05/10/2025 4.05 (L) 4.20 - 5.70 10*6/uL Final Hemoglobin 05/10/2025 10.4 (L) 13.0 - 17.0 g/dL Final Hematocrit 05/10/2025 33.3 (L) 39.0 - 50.0 % Final MCV 05/10/2025 82.2 82.0 - 98.0 fL Final MCH 05/10/2025 25.7 (L) 27.0 - 33.0 pg Final MCHC 05/10/2025 31.2 (L) 32.0 - 35.0 g/dL Final RDW 05/10/2025 19.2 (H) 11.5 - 15.0 % Final Neutrophils % 05/10/2025 79.1 (H) 40.0 - 72.0 % Final Lymphocytes % 05/10/2025 8.2 (L) 20.0 - 45.0 % Final Monocytes % 05/10/2025 10.3 5.0 - 12.0 % Final Eosinophils % 05/10/2025 1.4 0.0 - 6.0 % Final Basophils % 05/10/2025 0.4 0.0 - 1.0 % Final Neutrophils Absolute 05/10/2025 8.31 (H) 1.60 - 7.60 10*3/uL Final Lymphocytes Absolute 05/10/2025 0.86 (L) 1.20 - 4.00 10*3/uL Final Monocytes Absolute 05/10/2025 1.08 (H) 0.10 - 1.00 10*3/uL Final Eosinophils Absolute 05/10/2025 0.15 0.00 - 0.50 10*3/uL Final Basophils Absolute 05/10/2025 0.04 0.00 - 0.20 10*3/uL Final Platelets 05/10/2025 311 150 - 400 10*3/uL Final nRBC % 05/10/2025 0.0 0 % Final Immature Granulocytes % 05/10/2025 0.6 0.0 - 1.0 % Final Immature Granulocytes Absolute 05/10/2025 0.06 0.00 - 0.20 10*3/uL Final Glucose POC 05/10/2025 186 (H) 70 - 105 mg/dL Final isegura2 BNP 05/10/2025 736 (H) 0 - 100 pg/mL Final Anti-Xa (Heparin) 05/10/2025 0.21 (L) 0.3 - 0.7 IU/mL Final Rivaroxaban and Apixaban will interfere with the anti Xa assay used to monitor UFH and LMWH. aPTT 05/10/2025 34.1 25.0 - 35.0 Seconds Final Clinical significance of the APTT is questionable in the presence of heparin. Platelets 05/10/2025 349 150 - 400 10*3/uL Final Glucose POC 05/10/2025 172 (H) 70 - 105 mg/dL Final isegura2 Anti-Xa (Heparin) 05/10/2025 0.25 (L) 0.3 - 0.7 IU/mL Final Rivaroxaban and Apixaban will interfere with the anti Xa assay used to monitor UFH and LMWH. Glucose POC 05/10/2025 159 (H) 70 - 105 mg/dL Final isegura2 Anti-Xa (Heparin) 05/11/2025 0.28 (L) 0.3 - 0.7 IU/mL Final Rivaroxaban and Apixaban will interfere with the anti Xa assay used to monitor UFH and LMWH. Glucose POC 05/10/2025 237 (H) 70 - 105 mg/dL Final [id number] Auto WBC 05/11/2025 11.58 (H) 4.00 - 10.60 10*3/uL Final RBC 05/11/2025 3.84 (L) 4.20 - 5.70 10*6/uL Final Hemoglobin 05/11/2025 9.9 (L) 13.0 - 17.0 g/dL Final Hematocrit 05/11/2025 31.8 (L) 39.0 - 50.0 % Final MCV 05/11/2025 82.8 82.0 - 98.0 fL Final MCH 05/11/2025 25.8 (L) 27.0 - 33.0 pg Final MCHC 05/11/2025 31.1 (L) 32.0 - 35.0 g/dL Final RDW 05/11/2025 19.0 (H) 11.5 - 15.0 % Final Platelets 05/11/2025 312 150 - 400 10*3/uL Final Sodium 05/11/2025 140 136 - 145 mmol/L Final Potassium 05/11/2025 4.2 3.5 - 5.1 mmol/L Final Chloride 05/11/2025 101 98 - 107 mmol/L Final CO2 05/11/2025 28 21 - 31 mmol/L Final BUN 05/11/2025 31 (H) 7 - 25 mg/dL Final Creatinine 05/11/2025 1.56 (H) 0.70 - 1.30 mg/dL Final Glucose 05/11/2025 237 (H) 70 - 100 mg/dL Final Calcium 05/11/2025 8.4 (L) 8.6 - 10.3 mg/dL Final Anion Gap 05/11/2025 15 7 - 20 mmol/L Final eGFR 05/11/2025 43.0 (L) >60.0 mL/min/1.73m*2 Final [facility]???s estimated glomerular filtration rate (eGFR) will no longer include consideration of race in its calculation. The National Kidney Foundation???s eGFR Task Force developed new recommendations for the estimation of the glomerular filtration rate in the [place] They recommend immediate implementation of the new equation refit without the race variable in all laboratories because the calculation does not include race. In addition to not including race in the calculation and reporting, it included diversity in its development, and has acceptable performance characteristics and potential consequences that do not disproportionately affect any one group of individuals. BUN/Creatinine Ratio 05/11/2025 19.9 Final Extra Tube 05/11/2025 Hold for add-ons. Final Auto resulted. Anti-Xa (Heparin) 05/11/2025 0.38 0.3 - 0.7 IU/mL Final Rivaroxaban and Apixaban will interfere with the anti Xa assay used to monitor UFH and LMWH. Glucose POC 05/11/2025 224 (H) 70 - 105 mg/dL Final clarcom Triglycerides 05/11/2025 93 <150 mg/dL Final TRIGLYCERIDE REFERENCE RANGE: 20 YEARS AND OLDER CARDIOVASCULAR RISK LESS THAN 150 mg/dL LOW RISK 150 TO 199 mg/dL BORDERLINE RISK 200 mg/dL AND GREATER HIGH RISK Cholesterol 05/11/2025 187 120 - 200 mg/dL Final LDL Calculated 05/11/2025 99 0 - 160 mg/dL Final HDL 05/11/2025 69 23 - 92 mg/dL Final Non HDL Cholesterol 05/11/2025 118 Final Total VLDL-C 05/11/2025 19 0 - 40 mg/dL Final Cholesterol/HDL Ratio 05/11/2025 2.7 mg/dL Final Hemoglobin A1C 05/11/2025 9.3 (H) 4.0 - 6.0 % Final Estimated Average Glucose 05/11/2025 220 mg/dL Final Glucose POC 05/11/2025 201 (H) 70 - 105 mg/dL Final clarcom Assessment & Plan Chest pain Primary hypertension Acute congestive heart failure (CMS/HCC) History of CVA (cerebrovascular accident) Type 2 diabetes mellitus, with long-term current use of insulin ([facility]) . No associated orders from this encounter found during lookback period of 72 hours. Other hyperlipidemia . No associated orders from this encounter found during lookback period of 72 hours. Chronic atrial fibrillation (CMS/HCC) Chronic kidney disease Elevated troponin Angina pectoris, unstable (CMS/[facility]) COrders from past 72 hours: Case Request Special Deputy Sheriff: Coronary angiography, Right heart cath; Standing Cardiac catheterization; Standing A/P This 85-year-old gentleman presented with acute on chronic heart failure. His ejection fraction is difficult to assess on recent echocardiogram, but he has known moderate to severe aortic stenosis AR, mild TR and MR. Patient has the above-stated past medical history. His states he had of stroke 3 to [address] Garcia at [facility] says was a small embolic stroke from his paroxysmal atrial fibrillation. His daughter states it was on the right side. His neurologic symptoms have cleared . Patient has moderate pulmonary hypertension with PA pressures of 64/24, wedge of 28 and had a largeV wave- indicating heart failure. Patient is presently getting goal-directed medical therapy as outlined in the cardiology consult note. Specifications are being made due to his history of renal artery stenosis. Patient had heart cath today that reveals moderate coronary artery disease with a borderline significant mid LAD lesion. I feel this 85-year-old gentleman should undergo TAVR with possible PCI of LAD if it i is felt to be clinically significant by the buffer copper. I believe the risks and benefits of CABG/AVR are too high to proceed to recommend coronary artery bypass grafting/AVR, especially with a possible history of recent cva. However I feel his history and testing warrant aortic valve replacement and would recommend TAVR. We will obtain the records of his stroke from [facility]. Negro Lopez MD Cardiac Surgery [1] History reviewed. No pertinent past medical history. [2] History reviewed. No pertinent surgical history. [3] No family history on file. [4] Allergies Allergen Reactions Aminolevulinic Acid Hcl Unknown Iodinated Contrast Media Unknown Nitroglycerin Other hypotension Simvastatin Unknown [5] Medications Prior to Admission Medication Sig Dispense Refill Last Dose/Taking acetaminophen (Tylenol) 500 mg tablet Take 1,000 mg by mouth every 6 (six) hours if needed for mildpain (1-3 pain score). aspirin 81 mg EC tablet Take 81 mg by mouth in the morning. b complex 0.4 mg tablet Take 1 tablet by mouth in the morning. bacitracin 500 unit/gram ointment Apply 1 Application topically two times daily. calcium polycarbophil (Fibercon) 625 mg tablet Take 1,250 mg by mouth in the morning. cholecalciferol (Vitamin D-3) 25 MCG (1000 UT) capsule Take 25 mcg by mouth in the morning. cloNIDine (Catapres) 0.2 mg tablet Take 0.2 mg by mouth three times daily. dicyclomine (Bentyl) 10 mg capsule Take 10 mg by mouth two times daily. empagliflozin (Jardiance) 25 mg Take 25 mg by mouth in the morning. ezetimibe (Zetia) 10 mg tablet Take 10 mg by mouth in the morning. fluticasone propion-salmeteroL 113 mcg-14 mcg/actuation aero powdr breath act w/sensor Inhale 1 Inhalation two times daily. furosemide (Lasix) 40 mg tablet Take 40 mg by mouth in the morning. glimepiride (Amaryl) 4 mg tablet Take 8 mg by mouth before breakfast. insulin lispro (HumaLOG) 100 unit/mL injection pen Inject 2-10 Units under the skin with breakfast,with lunch, and with evening meal. labetalol (Normodyne) 300 mg tablet Take 300 mg by mouth three times daily. linaGLIPtin (Tradjenta) 5 mg tablet Take 5 mg by mouth in the morning. loratadine (Claritin) 10 mg tablet Take 10 mg by mouth in the morning. magnesium oxide 500 mg magnesium tablet Take 500 mg by mouth three times daily. metFORMIN (Glucophage) 500 mg tablet Take 500 mg by mouth three times daily. omeprazole (PriLOSEC) [address] capsule Take 20 mg by mouth before breakfast. Do not crush or chew. pioglitazone (Actos) 45 mg tablet Take 45 mg by mouth in the morning. polyethylene glycol (Glycolax) oral powder Take 17 g by mouth if needed each day (constipation). potassium chloride CR (Klor-Con M10) 10 mEq ER tablet Take 20 mEq by mouth in the morning. Do not crush or chew. prednisoLONE acetate (Pred Mild) 0.12 % ophthalmic suspension Administer 1 drop into both eyes two times daily. primidone (Mysoline) 50 mg tablet Take 100 mg by mouth two times daily. psyllium (Metamucil) 0.52 gram capsule Take 1.52 g by mouth in the morning. spironolactone (Aldactone) 25 mg tablet Take 25 mg by mouth in the morning. tamsulosin (Flomax) 0.4 mg 24 hr capsule Take 0.4 mg by mouth in the morning. tiotropium (Spiriva Respimat) 1.25 mcg/actuation inhaler Inhale 2 puffs in the morning. * Paradise Garrison - 05/10/2025 4:07 PM EDTAssociated Order(s): IP CONSULT TO SOCIAL WORK discharge planning: to return to [facility] Longterm [facility] Patient came to this admission from [facility]. - Occupational Therapy Eval noting Patient is able to return to prior living environment - Physical Therapy Eval noting Patient is able to return to prior living environment - LDAs tab not listing any open wounds or closed skin issues - I/O wVital flowsheet noting Patient on Room Air at this [facility] - PC to [facility]; Erin confirmed Patient is from their facility, specifically their Longterm unit (not ECF or PRISON) discharge barriers: [] no insurance precert needed for any placement from this admission [] * Stevie Nuñez MD - 05/10/2025 2:27 PM EDTAssociated Order(s): IP CONSULT TO CARDIOLOGY Images from the original note were not included. Cardiology Consult Note Reason for Consult: Acute on chronic HFpEF, hypertensive urgency HPI: Nadir Beth is a 85 y.o. male with past medical history of A-fib on Xarelto, hypertension, HFpEF, CKD, recent history of CVA 4 months back, renal artery stenosis transferred from [facility] for acute on chronic heart failure. Patient had history of stroke 4 months back and was in rehab patient has been having progressive lower extremity edema for few days. Patient was advised to increase his Lasix from 20 to 40 mg and blood work was done which showed BNP 6214 and was advised to go to the ED. In [place] ED chest x-ray showed pulmonary vascular congestion with right-sided pleural effusion and EKG showed A-fib, patient was found to be hypertensive with blood pressure 190/68. Patient follows up with Dr. Bland who had scheduled right heart cath on 05/10/2025. Echo done today showed unable to obtain EF secondary to rhythm however it was preserved, severe RA and LA enlargement, moderate to severe , AR, mild MR and TR. Cardiology ROS: Review of Systems Respiratory: Negative for cough and shortness of breath. Cardiovascular: Negative for chest pain and leg swelling. Neurological: Negative for dizziness, light-headedness and headaches. Past Medical History He has no past medical history on file. Surgical History He has no past surgical history on file. Social History He reports that he has quit smoking. His smoking use included cigarettes. He has never used smokeless tobacco. No history on file for alcohol use and drug use. Family History Family History[1] Allergies Aminolevulinic acid hcl, Iodinated contrast media, Nitroglycerin, and Simvastatin Medications Current Outpatient Medications Medication Instructions acetaminophen (TYLENOL) 1,000 mg, oral, Every 6 hours PRN aspirin 81 mg, oral, Daily b complex 0.4 mg tablet 1 tablet, oral, Daily bacitracin 500 unit/gram ointment 1 Application, Topical, 2 times daily calcium polycarbophil (FIBERCON) 1,250 mg, oral, Daily cholecalciferol (VITAMIN D-3) 25 mcg, oral, Daily cloNIDine (CATAPRES) 0.2 mg, oral, 3 times daily dicyclomine (BENTYL) 10 mg, oral, 2 times daily empagliflozin (JARDIANCE) 25 mg, oral, Daily ezetimibe (ZETIA) 10 mg, oral, Daily fluticasone propion-salmeteroL 113 mcg-14 mcg/actuation aero powdr breath act w/sensor 1 Inhalation, inhalation, 2 times daily furosemide (LASIX) 40 mg, oral, Daily glimepiride (AMARYL) 8 mg, oral, Daily before breakfast insulin lispro (HUMALOG) 2-10 Units, subcutaneous, 3 times daily with meals labetalol (NORMODYNE) 300 mg, oral, 3 times daily linaGLIPtin (TRADJENTA) 5 mg, oral, Daily loratadine (CLARITIN) 10 mg, oral, Daily magnesium oxide 500 mg, oral, 3 times daily metFORMIN (GLUCOPHAGE) 500 mg, oral, 3 times daily omeprazole (PRILOSEC) 20 mg, oral, Daily before breakfast, Do not crush or chew. pioglitazone (ACTOS) 45 mg, oral, Daily polyethylene glycol (Glycolax) oral powder 17 g, oral, Daily PRN potassium chloride CR (Klor-Con M10) 10 mEq ER tablet 20 mEq, oral, Daily, Do not crush or chew. prednisoLONE acetate (Pred Mild) 0.12 % ophthalmic suspension 1 drop, Both Eyes, 2 times daily primidone (MYSOLINE) 100 mg, oral, 2 times daily psyllium (METAMUCIL) 1.52 g, oral, Daily spironolactone (ALDACTONE) 25 mg, oral, Daily tamsulosin (FLOMAX) 0.4 mg, oral, Daily tiotropium (Spiriva Respimat) 1.25 mcg/actuation inhaler 2 puffs, inhalation, Daily Prescriptions Prior to Admission[2] Last Recorded Vitals Patient Vitals for the past 24 hrs: BP Temp Temp src Pulse Resp SpO2 Height Weight 05/10/25 1211 156/71 36.5 ??C (97.7 ??F) Temporal 75 13 95 % -- -- 05/10/25 1005 172/80 -- -- 89 -- -- -- -- 05/10/25 0752 (!) 178/92 36.6 ??C (97.9 ??F) Temporal 99 19 93 % -- -- 05/10/25 0725 -- -- Temporal -- -- -- -- -- 05/10/25 0600 (!) 188/95 -- -- 91 15 93 % -- -- 05/10/25 0526 -- -- -- -- -- -- -- 81 kg (178 lb 9.2 oz) 05/10/25 0500 (!) 190/68 -- -- 95 18 91 % -- -- 05/10/25 0400 174/80 36.6 ??C (97.9 ??F) -- 78 14 97 % -- -- 05/10/25 0300 -- -- -- -- -- -- 1.828 m (5' 11.97 ) 81 kg (178 lb 9.2 oz) 05/10/25 0252 (!) 189/89 36.5 ??C (97.7 ??F) -- 88 17 91 % -- -- Physical Examination: Physical Exam Cardiovascular: Rate and Rhythm: Normal rate. Rhythm irregular. Heart sounds: Murmur (Pansystolic murmur on aortic and mitral region) heard. Pulmonary: Effort: Pulmonary effort is normal. Breath sounds: Rales present. Abdominal: General: Abdomen is flat. Palpations: Abdomen is soft. Musculoskeletal: Cervical back: Normal range of motion. Right lower leg: No edema. Left lower leg: No edema. Neurological: General: No focal deficit present. Relevant Lab Results No results found for this or any previous visit (from the past 4464 hours). No results found for: CKTOTAL , CKMB , CKMBINDEX , TROPONINI Complete Echo (TTE) w/wo Imaging Agent, Strain, 3D, Bubble Study Result Date: 05/10/2025 1 1 [facility] Heart Station [address] [phone] (fax) Echocardiogram-[facility] Name: NADIR BETH Study Date: 05/10/2025 09:19 AM B/P: 178 mmHg/92 mmHg HR: 104 bpm Date of : 1940 Location: [facility] Height: 72 in. Age: 85 year(s) Patient Room: 3122 Weight: 178 lb. Gender: Male Patient Status: InPt BSA: 2.03 m2 Indication: elevated troponins, dyspnea, ckd, Pericardial Effusion, Atrial Fibrillation Examination: Echocardiogram (Complete) Image Quality: Fair Patient Consent: Procedure explained to patient Conclusions Left Ventricle: The left ventricle is normal size. Global left ventricular systolic function is difficult to assess due to rhythm but appears preserved. Left ventricular wall thickness is increased. Right Ventricle: The right ventricle is normal in size. Normal right ventricular systolic function. Doppler studies suggest severely elevated right sided pressures. Left Atrium: The left atrium is severely enlarged. Mitral Valve: Mild mitral regurgitation. Aortic Valve: Mild aortic valve regurgitation. Moderate to severe aortic stenosis. Overall Conclusions: Doppler velocities may be underestimated due to rhythm. Measurements Left Ventricle Label Value Normal Value LVOTd 1.9 cm (19cm - 21cm) LVOT VTI 21 cm (18cm - 22cm) LVOT PGmax 3 mmHg LVDd, 2D 4.84 cm (4.2cm - 5.9cm) LVDs, 2D 3.74 cm (2.1cm - 4cm) IVSd, 2D 1.27 cm (0.6cm - 1.1cm) LVPWd, 2D 1.16 cm (0.6cm - 1cm) LV Mass, 2D ASE 225.96 g LV Mass Index, 2D ASE 111.3 g/m?? (50g/m?? - 102.4g/m??) RWT, MM 0.48 (0 - 0.42) LVSVI, 2D 24.6 ml/m2 LVOT PGmean 2 mmHg LVSV_LVOT 60 ml Right Ventricle Label Value Normal Value RVDd, 2D 4.14 cm (1.9cm - 3.8cm) TAPSE 1.47 cm Left Atrium Label Value Normal Value LA Volume, B P 134 ml (18ml - 58ml) LAESV index, BP 66 ml/m?? Right Atrium Label Value Normal Value RA Area 30.6cm?? Aortic Valve Label Value Normal Value AV DVI 0.29 AV VTI 61.5 cm Mitral Valve Label Value Normal Value MV E Vmax 1.1 m/s MV E/E' lateral 14.6 MV E' lateral 0.08 m/s Tricuspid Valve Label Value Normal Value RA Pressure 3 mmHg RVSP 73 mmHg Aorta Label Value Normal Value AoRoot, 2D 3.99 cm (1.4cm- 3.8cm) Great Vessels Label Value Normal Value IVC 2 cm (1.2cm - 2.3cm) Valvular Assessment LVOT 0.7 - 1.1 m/sec Aortic Valve 1.0 - 1.7 m/sec Mitral Valve 0.6 - 1.3 m/sec Tricuspid Valve 0.3 - 0.7 m/sec Pulmonic Valve 0.6 - 0.9 m/sec Regurgitation Mild Mild Mild No Stenosis ModS No No No Max Velocity 0.90 m/sec 3.06 m/s 1.10 m/sec 0.95 m/s Max Gradient 37.00 mmHg 4.00 mmHg Mean Gradient 20.00 mmHg Valve Area 0.8 cm?? Findings Left Ventricle: The left ventricle is normal size. Global left ventricular systolic function is difficult to assess due to rhythm but appears preserved. Left ventricular wall thickness is increased. Right Ventricle: The right ventricle is normal in size. Normal right ventricular systolic function. Doppler studies suggest severely elevated right sided pressures. LeftAtrium: The left atrium is severely enlarged. Right Atrium: The right atrium is severely enlarged. Mitral Valve: There is nonspecific thickening of the mitral valve leaflet. Mild mitral regurgitation. No mitral valve stenosis. There is mild to moderate mitral annular calcification. Aortic Valve: Severe aortic valve calcification is present. Mild aortic valve regurgitation. Moderate to severe aortic stenosis. Tricuspid Valve: Normal tricuspid valve. Mild tricuspid regurgitation. No tricuspid valve stenosis. Pulmonic Valve: Normal pulmonary valve. No pulmonary regurgitation. No pulmonic valve stenosis. Aorta: The aortic root exhibits mild dilatation. Great Vessels: IVC: The IVC is normal in size. Respiratory inspiration greater than 50%. Pericardium: There is a small pericardial effusion. Aleft pleural effusion is seen. Procedure Staff Reading Group: [facility] National Sales Representative: SEAN Bailey, RDCS Ordering Physician: ESTUARDO REED Electronically signed by MD Geri Delarosa on05/10/2025 at 10:24 AM No nuclear medicine results found for the past 12 months Relevant Imaging Results Complete Echo (TTE) w/wo Imaging Agent, Strain, 3D, Bubble Study 1 1 [facility] Heart Station [address] [place] [address] [phone] (fax) Echocardiogram-[facility] Name: NADIR BETH Study Date: 05/10/2025 09:19 AM B/P: 178 mmHg/92 mmHg HR: 104 bpm Date of : 1940 Location: [facility] Height: 72 in. Age: 85 year(s) Patient Room: 3122 Weight: 178 lb. Gender: Male Patient Status: InPt BSA: 2.03 m2 Indication: elevated troponins, dyspnea, ckd, Pericardial Effusion, Atrial Fibrillation Examination: Echocardiogram (Complete) Image Quality: Fair Patient Consent: Procedure explained to patient Conclusions Left Ventricle: The left ventricle is normal size. Global left ventricular systolic function is difficult to assess due to rhythm but appears preserved. Left ventricular wall thickness is increased. Right Ventricle: The right ventricle is normal in size. Normal right ventricular systolic function. Doppler studies suggest severely elevated right sided pressures. Left Atrium: The left atrium is severely enlarged. Mitral Valve: Mild mitral regurgitation. Aortic Valve: Mild aortic valve regurgitation. Moderate to severe aortic stenosis. Overall Conclusions: Doppler velocities may be underestimated due to rhythm. Measurements Left Ventricle Label Value Normal Value LVOTd 1.9 cm (19cm - 21cm) LVOT VTI 21 cm (18cm - 22cm) LVOT PGmax 3 mmHg LVDd, 2D 4.84 cm (4.2cm - 5.9cm) LVDs, 2D 3.74 cm (2.1cm - 4cm) IVSd, 2D 1.27 cm (0.6cm - 1.1cm) LVPWd, 2D 1.16 cm (0.6cm - 1cm) LV Mass, 2D ASE 225.96 g LV Mass Index, 2D ASE 111.3 g/m?? (50g/m?? - 102.4g/m??) RWT, MM 0.48 (0 - 0.42) LVSVI, 2D 24.6 ml/m2 LVOT PGmean 2 mmHg LVSV_LVOT 60 ml Right Ventricle Label Value Normal Value RVDd, 2D 4.14 cm (1.9cm - 3.8cm) TAPSE 1.47 cm Left Atrium Label Value Normal Value LA Volume, BP 134 ml (18ml - 58ml) LAESV index, BP 66 ml/m?? Right Atrium Label Value Normal Value RA Area 30.6 cm?? Aortic Valve Label Value Normal Value AV DVI 0.29 AV VTI 61.5 cm Mitral Valve Label Value Normal Value MV E Vmax 1.1 m/s MV E/E' lateral 14.6 MV E' lateral 0.08 m/s Tricuspid Valve Label Value Normal Value RA Pressure 3 mmHg RVSP 73 mmHg Aorta Label Value Normal Value AoRoot, 2D 3.99 cm (1.4cm - 3.8cm) Great Vessels Label Value Normal Value IVC 2 cm (1.2cm - 2.3cm) Valvular Assessment LVOT 0.7 - 1.1 m/sec Aortic Valve 1.0 - 1.7 m/sec Mitral Valve 0.6 - 1.3 m/sec Tricuspid Valve 0.3 - 0.7 m/sec Pulmonic Valve 0.6 - 0.9 m/sec Regurgitation Mild Mild Mild No Stenosis ModS No No No Max Velocity 0.90 m/sec 3.06 m/s 1.10 m/sec 0.95 m/s Max Gradient 37.00 mmHg 4.00 mmHg Mean Gradient 20.00 mmHg Valve Area 0.8 cm?? Findings Left Ventricle: The left ventricle is normal size. Global left ventricular systolic function is difficult to assess due to rhythm but appears preserved. Left ventricular wall thickness is increased. Right Ventricle: The right ventricle is normal in size. Normal right ventricular systolic function. Doppler studies suggest severely elevated right sided pressures. Left Atrium: The left atrium is severely enlarged. Right Atrium: The right atrium is severely enlarged. Mitral Valve: There is nonspecific thickening of the mitral valve leaflet. Mild mitral regurgitation. No mitral valve stenosis. There is mild to moderate mitral annular calcification. Aortic Valve: Severe aortic valve calcification is present. Mild aortic valve regurgitation. Moderate to severe aortic stenosis. Tricuspid Valve: Normal tricuspid valve. Mild tricuspid regurgitation. No tricuspid valve stenosis. Pulmonic Valve: Normal pulmonary valve. No pulmonary regurgitation. No pulmonic valve stenosis. Aorta: The aortic root exhibits mild dilatation. Great Vessels: IVC: The IVC is normal in size. Respiratory inspiration greater than 50%. Pericardium: There is a small pericardial effusion. A left pleural effusion is seen. Procedure Staff Reading Group: [facility] National Sales Representative: Bianca Armendariz, BS, RDCS Ordering Physician: ESTUARDO REED SSMENT Acute on chronic heart failure with preserved EF Echo 05/10 showed EF preserved difficult access secondary to rhythm, moderate to severe and AR, mild MR and TR Mildly elevated troponin most likely secondary to chronic myocardial injury Troponin 21--> 26 Nonrheumatic aortic valve stenosis Paroxysmal A-fib ([id number] 5) Hypertension Recent stroke History of renal artery stenosis status post left renal artery stent 2014 CKD PLAN Patient scheduled for right heart cath today with Dr. Ventura for aortic valve repair Continue heparin drip, plan to switch to oral Eliquis after cath GDMT: Farxiga, labetalol and Aldactone, uptitrate after Cath, holding JAY/ARB's for history of renal artery stenosis Currently diuresis with IV Lasix 40 3 times daily Strict I&O's Remainder of care as per primary team and other consultative services Cardiology team will continue to follow This note was, at least in part, completed using a voice telescope repairer system. Every effort was made to ensure accuracy. However, inadvertent computerized telescope repairer errors may be present. Stevie Nuñez MD PGY-2 Internal Medicine Cardiology Consult Service [facility] [1] No family history on file. [2] Medications Prior to Admission Medication Sig Dispense Refill Last Dose/Taking acetaminophen (Tylenol) 500 mg tablet Take 1,000 mg by mouth every 6 (six) hours if needed for mildpain (1-3 pain score). aspirin 81 mg EC tablet Take 81 mg by mouth in the morning. b complex 0.4 mg tablet Take 1 tablet by mouth in the morning. bacitracin 500 unit/gram ointment Apply 1 Application topically two times daily. calcium polycarbophil (Fibercon) 625 mg tablet Take 1,250 mg by mouth in the morning. cholecalciferol (Vitamin D-3) 25 MCG (1000 UT) capsule Take 25 mcg by mouth in the morning. cloNIDine (Catapres) 0.2 mg tablet Take 0.2 mg by mouth three times daily. dicyclomine (Bentyl) 10 mg capsule Take 10 mg by mouth two times daily. empagliflozin (Jardiance) 25 mg Take 25 mg by mouth in the morning. ezetimibe (Zetia) 10 mg tablet Take 10 mg by mouth in the morning. fluticasone propion-salmeteroL 113 mcg-14 mcg/actuation aero powdr breath act w/sensor Inhale 1 Inhalation two times daily. furosemide (Lasix) 40 mg tablet Take 40 mg by mouth in the morning. glimepiride (Amaryl) 4 mg tablet Take 8 mg by mouth before breakfast. insulin lispro (HumaLOG) 100 unit/mL injection pen Inject 2-10 Units under the skin with breakfast,with lunch, and with evening meal. labetalol (Normodyne) 300 mg tablet Take 300 mg by mouth three times daily. linaGLIPtin (Tradjenta) 5 mg tablet Take 5 mg by mouth in the morning. loratadine (Claritin) 10 mg tablet Take 10 mg by mouth in the morning. magnesium oxide 500 mg magnesium tablet Take 500 mg by mouth three times daily. metFORMIN (Glucophage) 500 mg tablet Take 500 mg by mouth three times daily. omeprazole (PriLOSEC) [address] capsule Take 20 mg by mouth before breakfast. Do not crush or chew. pioglitazone (Actos) 45 mg tablet Take 45 mg by mouth in the morning. polyethylene glycol (Glycolax) oral powder Take 17 g by mouth if needed each day (constipation). potassium chloride CR (Klor-Con M10) 10 mEq ER tablet Take 20 mEq by mouth in the morning. Do not crush or chew. prednisoLONE acetate (Pred Mild) 0.12 % ophthalmic suspension Administer 1 drop into both eyes two times daily. primidone (Mysoline) 50 mg tablet Take 100 mg by mouth two times daily. psyllium (Metamucil) 0.52 gram capsule Take 1.52 g by mouth in the morning. spironolactone (Aldactone) 25 mg tablet Take 25 mg by mouth in the morning. tamsulosin (Flomax) 0.4 mg 24 hr capsule Take 0.4 mg by mouth in the morning. tiotropium (Spiriva Respimat) 1.25 mcg/actuation inhaler Inhale 2 puffs in the morning. Cosigned by Azeem Green MD at 05/10/2025 7:15 PM EDT Associated attestation - Azeem Green MD - 05/10/2025 7:15 PM EDT I personally saw and evaluated the patient on rounds with the medical insurance coder and agree with his assessment and plan as documented in the progress note from today * Pura Skinner RD - 05/10/2025 10:26 AM EDTAssociated Order(s): IP CONSULT TO NUTRITION SERVICES Adult Nutrition Assessment: Name: Nadir Beth Date: 1940 Date of Visit: 05/10/25 Admission Dx: Chest pain [R07.9] Reason for assessment: MD referral Information obtained from: patient, family, and medical record Medical History[1] Current Medications: aspirin, 81 mg, oral, Daily carvedilol, 25 mg, oral, BID cholecalciferol, 1,000 Units, oral, Daily cloNIDine, 0.2 mg, oral, TID dapagliflozin propanediol, 10 mg, oral, Daily ezetimibe, 10 mg, oral, Daily furosemide, 40 mg, intravenous, q12h hydrALAZINE, 25 mg, oral, TID insulin lispro, 0-10 Units, subcutaneous, TID with meals And insulin lispro, 0-8 Units, subcutaneous, Nightly labetalol, 300 mg, oral, TID spironolactone, 25 mg, oral, Daily heparin, 0-28 Units/kg/hr Labs: 0 Lab Value Date/Time POCGLU 186 (H) 05/10/2025 0717 BUN 28 (H) 05/10/2025 0454 CREATININE 1.45 (H) 05/10/2025 0454 NA 139 05/10/2025 0454 K 3.6 05/10/2025 0454 MG 2.0 05/10/2025 0454 HGB 10.4 (L) 05/10/2025 0454 WBC 10.50 05/10/2025 0454 Allergies: Allergies[2] Nutrition Problems: Swallowing Assessment: pt denies swallowing difficulty Mouth: pt denies chewing difficulty Abdominal Assessment: Pt's family reported that pt will either get diarrhea or constipation; last BM 05/09 Appetite: good Cognition: oriented to person and time Feeding Skills: Pt came from rehab where meals were prepared for him, but at home family would prepare meals Skin Integrity: no documented skin issues Edema: generalized +1; BUE +1; BLE +2 Nutrition Data/Clinical Indicators of Nutrition Status: Height: 182.8 cm (5' 11.97 ) Weight: 81 kg (178 lb 9.2 oz) BMI (Calculated): 24.24 Wt Readings from Last 10 Encounters: 05/10/25 81 kg (178 lb 9.2 oz) IBW: 80.9 kg Weight change: No recent weight history. Pt reported that he has lose 35 lbs and family reported that this has been a gradual weight loss. Nutrition Assessment: Family reported that pt has not had any changes in his appetite or intake. Family reported that pt will typically eat 3 meals a day. Pt will eat things like diet coke, sandwiches, meats, vegetables. Family has been trying to limit pt's carbs and have been providing sugar free foods. Family reportedthat it is harder pt to follow a heart healthy diet at rehab as there are a lot of desserts, pasta,potatoes, and bread. Family reported that pt does not add a lot of salt to foods. Nutrition Risk: Low Nutrition Diagnosis: No nutrition diagnosis at this time Malnutrition Assessment: Per Registered Dietitian assessment and evaluation, patient does not currently meet criteria OR there is not enough information to support the diagnosis of malnutrition per the clinical criteria set by the Academy of Nutrition and Dietetics (AND) and the [place] [employer] of Enteral and Parenteral Nutrition (ASPEN). Nutrition Education: Diet literature: Heart Failure Nutrition Therapy (explained CHF-diet relationship, reviewed and encouraged flavoring alternatives to salt, recommended adequate intake of fruits/vegetables at each meal and for snacks, encouraged choosing lean proteins, encouraged preparing more meals at home, and recommended decreasing frequency of eating out/take-out foods) Diabetes Nutrition Therapy (discussed the importance of regular scheduled meals and snacks, discussed the importance of fiber and incorporating into meals and snacks, discussed the importance of protein and incorporating into meals and snacks, and encouraged more meals prepared at home) Expected compliance/patient understanding: good, pt's family was understanding of education Teach back method: family verbalized understanding Time spent: 15 minutes Treatment Plan: Recommend obtaining A1C Recommend regular heart healthy, DM male diet Monitor tolerance Daily weights Monitor for unintentional weight loss Continue to review diet education as able Medically manage blood glucose as needed Goals: Adequate po intakes (kcals and protein); >75% meals Understanding of nutrition education/adherence to diet recommendations No significant unintentional wt loss BG control To reach the Clinical Dietitian, please utilize [employer] chat Wednesday-Wednesday from 8AM-4PM or call extension [phone]. For weekends (Wednesday-Wednesday) and holidays, the Clinical Dietitian can be reached via pager [phone]) from 9AM-3PM. The Clinical Nutrition Department is unable to respond to [employer] chat messages on Sundays and . [1] History reviewed. No pertinent past medical history. [2] Allergies Allergen Reactions Aminolevulinic Acid Hcl Unknown Iodinated Contrast Media Unknown Nitroglycerin Other hypotension Simvastatin Unknown documented in this encounter Nursing Notes * Yolanda Syed RN - 05/17/2025 5:31 PM EDT Report called to BRANDEN Norton at [facility]. * Liz Joshi RN - 05/17/2025 10:34 AM EDT Patient Name: Nadir Beth : 1940 Primary Care Physician: Pj Sung MD Admission Date: 05/10/2025 RAPID RESPONSE TEAM ICU TRANSFER FOLLOW-UP NOTE SUBJECTIVE / OBJECTIVE: Follow-up for previous transfer out of the ICU notification for 05/16/25 at 1504. ASSESSMENT / INTERVENTIONS: Recent Vital Signs: Vitals: 05/17/25 0000 05/17/25 0400 05/17/25 0526 05/17/25 0918 BP: 111/51 (!) 115/44 167/78 Pulse: 76 80 88 Resp: Temp: 36.6 ??C (97.9 ??F) TempSrc: Temporal SpO2: 99% 96% 100% Weight: 72.9 kg (160 lb 12.8 oz) Height: Latest Labs: Lab Results Component Value Date WBC 12.14 (H) 05/17/2025 WBC 14.93 (H) 05/16/2025 HGB 10.4 (L) 05/17/2025 HGB 10.0 (L) 05/16/2025 HCT 34.2 (L) 05/17/2025 HCT 33.1 (L) 05/16/2025 MCV 84.2 05/17/2025 MCV 84.0 05/16/2025 PLT 256 05/17/2025 PLT 306 05/16/2025 NEUTROABS 8.31 (H) 05/10/2025 Lab Results Component Value Date GLUCOSE 239 (H) 05/17/2025 GLUCOSE 222 (H) 05/16/2025 CALCIUM 8.6 05/17/2025 CALCIUM 8.6 05/16/2025 NA 140 05/17/2025 NA 140 05/16/2025 K 3.9 05/17/2025 K 4.2 05/16/2025 CO2 25 05/17/2025 CO2 22 05/16/2025 CL 104 05/17/2025 CL 103 05/16/2025 BUN 38 (H) 05/17/2025 BUN 41 (H) 05/16/2025 CREATININE 1.73 (H) 05/17/2025 CREATININE 1.71 (H) 05/16/2025 EGFR 38.0 (L) 05/17/2025 EGFR 38.5 (L) 05/16/2025 BCR 22.0 05/17/2025 BCR 24.0 05/16/2025 Lab Results Component Value Date MG 2.0 05/10/2025 No results found for: PHOS Lab Results Component Value Date ALT <3 (L) 05/17/2025 ALT 7 05/10/2025 AST 13 05/17/2025 AST 14 05/10/2025 ALKPHOS 68 05/17/2025 ALKPHOS 72 05/10/2025 BILITOT 0.5 05/17/2025 BILITOT 0.4 05/10/2025 No results found for: INR Follow-up: Patient seen resting in bed at the time of follow up. Vitals and lab work have been consistent and stable since transfer out of ICU. No concerns are voiced regarding his care. If emergent concerns arise, please call rapid response. Liz Joshi RN Rapid Response Team Nurse [phone] 05/17/2025 10:35 AM * Marc Araiza RN - 05/17/2025 2:32 AM EDT Patient Name: Nadir Beth : 1940 Primary Care Physician: Pj Sung MD Admission Date: 05/10/2025 RAPID RESPONSE TEAM ICU TRANSFER FOLLOW-UP NOTE SUBJECTIVE / OBJECTIVE: Follow-up for previous transfer out of the ICU notification for 05/16 at 1504. ASSESSMENT / INTERVENTIONS: Recent Vital Signs: Vitals: 05/16/25 1505 05/16/25 1601 05/16/25199905/17/25 0000 BP: 130/57 141/68 135/55 111/51 Pulse: 85 86 76 Resp: 14 13 11 19 Temp: 36.4 ??C (97.5 ??F) 36.5 ??C (97.7 ??F) TempSrc: Temporal Temporal SpO2: 95% 97% 99% Weight: Height: Latest Labs: Lab Results Component Value Date WBC 14.93 (H) 05/16/2025 WBC 12.04 (H) 05/15/2025 HGB 10.0 (L) 05/16/2025 HGB 10.3 (L) 05/15/2025 HCT 33.1 (L) 05/16/2025 HCT 33.6 (L) 05/15/2025 MCV 84.0 05/16/2025 MCV 82.4 05/15/2025 PLT 306 05/16/2025 PLT 306 05/15/2025 NEUTROABS 8.31 (H) 05/10/2025 Lab Results Component Value Date GLUCOSE 222 (H) 05/16/2025 GLUCOSE 255 (H) 05/15/2025 CALCIUM 8.6 05/16/2025 CALCIUM 8.9 05/15/2025 NA 140 05/16/2025 NA 137 05/15/2025 K 4.2 05/16/2025 K 4.5 05/15/2025 CO2 22 05/16/2025 CO2 27 05/15/2025 CL 103 05/16/2025 CL 99 05/15/2025 BUN 41 (H) 05/16/2025 BUN 34 (H) 05/15/2025 CREATININE 1.71 (H) 05/16/2025 CREATININE 1.61 (H) 05/15/2025 EGFR 38.5 (L) 05/16/2025 EGFR 41.4 (L) 05/15/2025 BCR 24.0 05/16/2025 BCR 21.1 05/15/2025 Lab Results Component Value Date MG 2.0 05/10/2025 No results found for: PHOS Lab Results Component Value Date ALT 7 05/10/2025 AST 14 05/10/2025 ALKPHOS 72 05/10/2025 BILITOT 0.4 05/10/2025 No results found for: INR Follow-up: Vital signs have remained stable since transfer out of MICU. Recent lab work is largely unchanged from previous. Patient's nurse reported that he has been mildly confused over night, however this is not new. No other questions or concerns reported at this time, but encouraged to reach out to APPLICATION SUPPORT TECHNICIAN if anything changes. Marc Araiza RN Rapid Response Team Nurse [phone] 05/17/2025 2:32 AM * Maddy Enrique RN - 05/15/2025 5:13 PM EDT Report called to Karen OTERO on MICU. documented in this encounter Miscellaneous Notes * Care Plan - Radha Cool RN - 05/17/2025 5:05 PM EDT Daily Case Management Update Barriers to Discharge: Patient is to discharge to half-way facility [facility] today. Stretcher transport has been established with [facility], bead picker time 1934. Diet: Dietary Orders (From admission, onward) Start Ordered 05/17/25 1637 Special Kitchen Request Once Comments: Chicken stir zuluaga, diet coke, sugar free chocolate ice cream 05/17/25 1637 05/17/25 1221 Special Kitchen Request Once Comments: Diet coke 05/17/25 1220 05/17/25 1136 Special Kitchen Request Once Comments: Hot turkey sandwich with mashed potatoes Coleslaw Fruit cup 05/17/25 1136 05/17/25 0802 Special Kitchen Request Once Comments: Omelet with green pepper, kyrgyz cheese and onion Wheat toast Sausage Raisin bran Milk Decaf coffee 05/17/25 0802 05/16/25 1553 Special Kitchen Request Once Comments: [place] burger with cheese On the side: tomato, onion, ketchup, mustard Apple sauce Sugar free ice cream Diet coke :) 05/16/25 1553 05/16/25 1303 Special Kitchen Request Once Comments: Mixed fruit cup x3 05/16/25 1302 05/15/25 2340 Regular Diet Heart Healthy/HTN, CABG,Stroke, (2gNA, low fat, low cholesterol); Diabetic Male (carb 60g/meal) Diet effective now Question Answer Comment Room Service? Yes Fat restriction: Heart Healthy/HTN, CABG,Stroke, (2gNA, low fat, low cholesterol) Carbohydrate restriction: Diabetic Male (carb 60g/meal) 05/15/25 2339 05/14/25 0631 Special Kitchen Request Once Comments: Omelet with green pepper, kyrgyz cheese and onion, 1 slice wheat toast, decaf coffee, cheerios with 2% milk please :) 05/14/25 0633 05/12/25 0700 Special Kitchen Request Once Comments: Fruit cup, 1 piece of wheat toast, southwest eggs, raisin bran and decaf coffee please :) 05/12/25 0410 05/10/25 180 Special Kitchen Request Once Comments: Please deliver on last round! Hot turkey sandwich with mashed potatoes, green beans, sugar free ice cream and a diet coke 05/10/25 180 Physician Expected Discharge Date: 05/17/2025 Discharge Delays: PT Six Click Score: 18 OT Six Click Score: 21 PT Recommendations: Patient is able to return to prior living environment (Recommend PT at his rehabilitation facility in order to improve overall functional skill level, and increase overall strength.) OT Recommendations: Patient is able to return to prior living environment New Consults: Consult Orders (From admission, onward) Start Ordered 05/16/25 1229 Inpatient consult to Pulmonology Once Specialty: Pulmonary Disease Provider: (Not yet assigned) Question Answer Comment Consulting Group Pulmonary Consult Reason for Consult? Pneumonia Level of Consultation Consultation and Management 05/16/25 1228 Therapy Orders (From admission, onward) Start Ordered 05/10/25 0411 PT eval and treat Until therapy completed Question: Reason for PT? Answer: weakness 05/10/25 0411 05/10/25 0411 OT eval and treat Until therapy completed Question: Reason for OT? Answer: gait abnormality 05/10/25410 * Care Plan - Yolanda Syed RN - 05/17/2025 2:37 PM EDT The patient is Moderately Stable - Low risk of patient condition declining or worsening The patient's goals for the shift include comfort, rest The clinical goals for the shift include VSS; safety Problem: Pain - Adult Goal: Verbalizes/displays adequate comfort level or baseline comfort level Outcome: Progressing Problem: Safety - Adult Goal: Free from fall injury Outcome: Progressing Problem: Discharge Planning Goal: Discharge to home or other facility with appropriate resources Outcome: Progressing Problem: Chronic Conditions and Co-morbidities Goal: Patient's chronic conditions and co-morbidity symptoms are monitored and maintained or improved Outcome: Progressing Problem: Heart Failure diagnosis knowledge deficit Goal: Patient will verbalize understanding of how heart failure affects the body Outcome: Progressing Goal: Patient will verbalize understanding of how other conditions affect the heart Outcome: Progressing Problem: Fluid retention/overload Goal: Patient will be able to identify signs and symptoms of fluid retention Outcome: Progressing Problem: Heart failure medication adherence Goal: Consistently take heart failure medication as prescribed Outcome: Progressing Problem: Insufficient exercise regimen Goal: Patient will engage in physical activity safely Outcome: Progressing Problem: Heart failure progression and care needs Goal: Patient will verbalize understanding of heart failure progression Outcome: Progressing Problem: Heart failure maintenance Goal: Patient will not experience any symptoms of shortness of breath or body swelling over the next 3 months Outcome: Progressing Problem: Neurosensory - Adult Goal: Achieves stable or improved neurological status Outcome: Progressing Problem: Respiratory - Adult Goal: Achieves optimal ventilation and oxygenation Outcome: Progressing Problem: Cardiovascular - Adult Goal: Maintains optimal cardiac output and hemodynamic stability Outcome: Progressing Goal: Absence of cardiac dysrhythmias or at baseline Outcome: Progressing Problem: Skin/Tissue Integrity - Adult Goal: Skin integrity remains intact Outcome: Progressing Goal: Incisions, wounds, or drain sites healing without S/S of infection Outcome: Progressing Problem: Musculoskeletal - Adult Goal: Return mobility to safest level of function Outcome: Progressing Problem: Gastrointestinal - Adult Goal: Maintains or returns to baseline bowel function Outcome: Progressing Goal: Maintains adequate nutritional intake Outcome: Progressing Problem: Genitourinary - Adult Goal: Absence of urinary retention Outcome: Progressing Problem: Infection - Adult Goal: Absence of infection at discharge Outcome: Progressing Problem: Metabolic/Fluid and Electrolytes - Adult Goal: Electrolytes maintained within normal limits Outcome: Progressing Goal: Hemodynamic stability and optimal renal function maintained Outcome: Progressing Goal: Glucose maintained within prescribed range Outcome: Progressing Problem: Hematologic - Adult Goal: Maintains hematologic stability Outcome: Progressing * Care Plan - Cee Watkins RN - 05/16/2025 10:59 PM EDT The patient is Moderately Stable - Low risk of patient condition declining or worsening The patient's goals for the shift include comfort, rest The clinical goals for the shift include vss, safety Over the shift, the patient did make progress toward the following goals. Problem: Pain - Adult Goal: Verbalizes/displays adequate comfort level or baseline comfort level 05/16/20252258 by Cee Wtakins RN Outcome: Progressing Flowsheets (Taken 05/16/20251999) Verbalizes/displays adequate comfort level or baseline comfort level: Encourage patient to monitor pain and request assistance Assess pain using appropriate pain scale Administer analgesics based on type and severity of pain and evaluate response Consider cultural and social influences on pain and pain management Implement non-pharmacological measures as appropriate and evaluate response Notify Licensed Independent Practitioner if interventions unsuccessful or patient reports new pain Problem: Safety - Adult Goal: Free from fall injury 05/16/20252258 by Cee Watkins RN Outcome: Progressing Flowsheets (Taken 05/16/20251999) Free from fall injury: Assess patient frequently for physical needs Identify cognitive and physical deficits and behaviors that affect risk of falls [place] fall precautions as indicated by assessment Educate patient/family on patient safety, including physical limitations Instruct patient to call for assistance with activity based on assessment Modify environment to reduce risk of injury Consider OT/PT consult to assist with strengthening/mobility Problem: Discharge Planning Goal: Discharge to home or other facility with appropriate resources 05/16/20252258 by Cee Watkins RN Outcome: Progressing Flowsheets (Taken 05/16/20251999) Discharge to home or other facility with appropriate resources: Identify barriers to discharge with patient and caregiver Identify discharge learning needs (meds, wound care, etc) Arrange for needed discharge resources and transportation as appropriate Arrange for interpreters to assist at discharge as needed Refer to discharge planning if patient needs post-hospital services based on physician order or complex needs related to functional status, cognitive ability or social support system Problem: Chronic Conditions and Co-morbidities Goal: Patient's chronic conditions and co-morbidity symptoms are monitored and maintained or improved 05/16/20252258 by Cee Watkins RN Outcome: Progressing Problem: Neurosensory - Adult Goal: Achieves stable or improved neurological status 05/16/20252258 by Cee Watkins RN Outcome: Progressing Flowsheets (Taken 05/16/20251999) Achieves stable or improved neurological status: Assess for and report changes in neurological status Initiate measures to prevent increased intracranial pressure Maintain blood pressure and fluid volume within ordered parameters to optimize cerebral perfusion and minimize risk of hemorrhage Monitor temperature, glucose, and sodium. Initiate appropriate interventions as ordered Problem: Respiratory - Adult Goal: Achieves optimal ventilation and oxygenation 05/16/20252258 by Cee Watkins RN Outcome: Progressing Flowsheets (Taken 05/16/20251999) Achieves optimal ventilation and oxygenation: Assess for changes in respiratory status Assess for changes in mentation and behavior Position to facilitate oxygenation and minimize respiratory effort Oxygen supplementation based on oxygen saturation or arterial blood gases Assess the need for suctioning and aspirate as needed Initiate smoking cessation protocol as indicated Encourage broncho-pulmonary hygiene including cough, deep breathe, incentive spirometry Assess and instruct to report shortness of breath or any respiratory difficulty Respiratory therapy support as indicated Problem: Cardiovascular - Adult Goal: Maintains optimal cardiac output and hemodynamic stability 05/16/20252258 by Cee Watkins RN Outcome: Progressing Flowsheets (Taken 05/16/20251999) Maintains optimal cardiac output and hemodynamic stability: Monitor blood pressure and heart rate Monitor urine output and notify Licensed Independent Practitioner for values outside of normal range Assess for signs of decreased cardiac output Administer fluid and/or volume expanders as ordered Administer vasoactive medications as ordered Problem: Cardiovascular - Adult Goal: Absence of cardiac dysrhythmias or at baseline 05/16/20252258 by Cee Watkins RN Outcome: Progressing Flowsheets (Taken 05/16/20251999) Absence of cardiac dysrhythmias or at baseline: Monitor cardiac rate and rhythm Assess for signs of decreased cardiac output Administer antiarrhythmia medication and electrolyte replacement as ordered Problem: Skin/Tissue Integrity - Adult Goal: Skin integrity remains intact 05/16/20252258 by Cee Watkins RN Outcome: Progressing Flowsheets (Taken 05/16/20251999) Skin integrity remains intact: Monitor for areas of redness and/or skin breakdown Assess vascular access sites hourly Change oxygen saturation probe site as needed Problem: Skin/Tissue Integrity - Adult Goal: Incisions, wounds, or drain sites healing without S/S of infection 05/16/20252258 by Cee Watkins RN Outcome: Progressing Flowsheets (Taken 05/16/20251999) Incisions, wounds, or drain sites healing without sign and symptoms of infection: TWICE DAILY: Assess and document skin integrity ADMISSION and DAILY: Assess and document risk factors for pressure ulcer development TWICE DAILY: Assess and document dressing/incision, wound bed, drain sites and surrounding tissue Implement wound care per orders Initiate isolation precautions as appropriate Initiate pressure ulcer prevention bundle as indicated Problem: Musculoskeletal - Adult Goal: Return mobility to safest level of function 05/16/20252258 by Cee Watknis RN Outcome: Progressing Flowsheets (Taken 05/16/20251999) Return mobility to safest level of function: Assess patient stability and activity tolerance for standing, transferring and ambulating with or without assistive devices Assist with transfers and ambulation using safe patient handling equipment as needed Ensure adequate protection for wounds/incisions during mobilization Instruct patient/family in ordered activity level Apply continuous passive motion per provider or physical therapy orders to increase flexion toward goal Obtain physical therapy/occupational therapy consults as needed Problem: Gastrointestinal - Adult Goal: Maintains or returns to baseline bowel function 05/16/20252258 by Cee Watkins RN Outcome: Progressing Flowsheets (Taken 05/16/20251999) Maintains or returns to baseline bowel function: Administer IV fluids as ordered to ensure adequate hydration Administer ordered medications as needed Encourage mobilization and activity Encourage oral fluids to ensure adequate hydration Assess bowel function Nutrition consult to assist patient with appropriate food choices Problem: Gastrointestinal - Adult Goal: Maintains adequate nutritional intake 05/16/20252258 by Cee Watkins RN Outcome: Progressing Flowsheets (Taken 05/16/20251999) Maintains adequate nutritional intake: Monitor percentage of each meal consumed Identify factors contributing to decreased intake, treat as appropriate Assist with meals as needed Monitor intake and output, weight and lab values Obtain nutritional consult as needed Problem: Genitourinary - Adult Goal: Absence of urinary retention 05/16/20252258 by Cee Watkins RN Outcome: Progressing Flowsheets (Taken 05/16/20251999) Absence of urinary retention: Assess patient???s ability to void and empty bladder Monitor intake/output and perform bladder scan as needed Problem: Infection - Adult Goal: Absence of infection at discharge 05/16/20252258 by Cee Watkins RN Outcome: Progressing Problem: Metabolic/Fluid and Electrolytes - Adult Goal: Electrolytes maintained within normal limits 05/16/20252258 by Cee Watkins RN Outcome: Progressing Flowsheets (Taken 05/16/20251999) Electrolytes maintained within normal limits: Monitor labs and assess patient for signs and symptoms of electrolyte imbalances Administer electrolyte replacement as ordered Monitor response to electrolyte replacements, including repeat lab results as appropriate Fluid restriction as ordered Instruct patient on fluid and nutrition restrictions as appropriate Problem: Metabolic/Fluid and Electrolytes - Adult Goal: Hemodynamic stability and optimal renal function maintained 05/16/20252258 by Cee Watkins RN Outcome: Progressing Flowsheets (Taken 05/16/20251999) Hemodynamic stability and optimal renal function maintained: Monitor labs and assess for signs and symptoms of volume excess or deficit Monitor intake, output and patient weight Monitor urine specific gravity, serum osmolarity and serum sodium as indicated or ordered Monitor response to interventions for patient's volume status, including labs, urine output, blood pressure (other measures as available) Encourage oral intake as appropriate Instruct patient on fluid and nutrition restrictions as appropriate Problem: Metabolic/Fluid and Electrolytes - Adult Goal: Glucose maintained within prescribed range 05/16/20252258 by Cee Watkins RN Outcome: Progressing Flowsheets (Taken 05/16/20251999) Glucose maintained within prescribed range: Monitor blood glucose as ordered Assess for signs and symptoms of hyperglycemia and hypoglycemia Administer ordered medications to maintain glucose within target range Assess barriers to adequate nutritional intake and initiate nutrition consult as needed Instruct patient on self management of diabetes and initiate consult as needed Problem: Hematologic - Adult Goal: Maintains hematologic stability 05/16/20252258 by Cee Watkins RN Outcome: Progressing Flowsheets (Taken 05/16/20251999) Maintains hematologic stability: Assess for signs and symptoms of bleeding or hemorrhage Monitor labs for bleeding or clotting disorders Administer blood products/factors as ordered * Care Plan - Radha Cool RN - 05/16/2025 5:11 PM EDT Daily Case Management Update Barriers to Discharge: Pending clinical course and clearance. POD #1 TAVR. Needs PT & OT to reevaluate to make sure patient can still return home. Slight ARTUR. ECHO today. Blood cultures pending. Diet: Dietary Orders (From admission, onward) Start Ordered 05/16/25 1553 Special Kitchen Request Once Comments: [place] burger with cheese On the side: tomato, onion, ketchup, mustard Apple sauce Sugar free ice cream Diet coke :) 05/16/25 1553 05/16/25 1303 Special Kitchen Request Once Comments: Mixed fruit cup x3 05/16/25 1302 05/15/25 2340 Regular Diet Heart Healthy/HTN, CABG,Stroke, (2gNA, low fat, low cholesterol); Diabetic Male (carb 60g/meal) Diet effective now Question Answer Comment Room Service? Yes Fat restriction: Heart Healthy/HTN, CABG,Stroke, (2gNA, low fat, low cholesterol) Carbohydrate restriction: Diabetic Male (carb 60g/meal) 05/15/25 2339 05/14/25 0631 Special Kitchen Request Once Comments: Omelet with green pepper, kyrgyz cheese and onion, 1 slice wheat toast, decaf coffee, cheerios with 2% milk please :) 05/14/25 0633 05/12/25 0700 Special Kitchen Request Once Comments: Fruit cup, 1 piece of wheat toast, southwest eggs, raisin bran and decaf coffee please :) 05/12/25 0410 05/10/25 1807 Special Kitchen Request Once Comments: Please deliver on last round! Hot turkey sandwich with mashed potatoes, green beans, sugar free ice cream and a diet coke 05/10/25 180 Physician Expected Discharge Date: 05/12/2025 Discharge Delays: PT Six Click Score: 17 OT Six Click Score: 21 PT Recommendations: Patient is able to return to prior living environment (presents from SNF) OT Recommendations: Patient is able to return to prior living environment New Consults: Consult Orders (From admission, onward) Start Ordered 05/16/25 1229 Inpatient consult to Pulmonology Once Specialty: Pulmonary Disease Provider: (Not yet assigned) Question Answer Comment Consulting Group Pulmonary Consult Reason for Consult? Pneumonia Level of Consultation Consultation and Management 05/16/25 1228 Therapy Orders (From admission, onward) Start Ordered 05/10/25 0411 PT eval and treat Until therapy completed Question: Reason for PT? Answer: weakness 061 05/10/25 041 OT eval and treat Until therapy completed Question: Reason for OT? Answer: gait abnormality 05/10/25410 * Care Plan - Ynes Bloom RN - 05/15/2025 5:29 PM EDT Daily Case Management Update Multidisciplinary rounds have been completed. Barriers to Discharge: Patient to go for TAVR Today. Discharge dispo: pending clinical course, Prior to Operation PT/OT rec Patient is able to return topmenifeer living environment (Presents from SNF). Patient is from [facility], with tentative plan to return when medically ready. Diet: Dietary Orders (From admission, onward) Start Ordered 05/15/25 0001 Diet NPO Diet effective midnight Comments: Sips with medications Question: Reason for NPO: Answer: Operation/Procedure 05/14/25 1521 05/14/25 0631 Special Kitchen Request Once Comments: Omelet with green pepper, kyrgyz cheese and onion, 1 slice wheat toast, decaf coffee, cheerios with 2% milk please :) 05/14/25 0633 05/12/25 0700 Special Kitchen Request Once Comments: Fruit cup, 1 piece of wheat toast, southwest eggs, raisin bran and decaf coffee please :) 05/12/25 0410 05/10/25 1807 Special Kitchen Request Once Comments: Please deliver on last round! Hot turkey sandwich with mashed potatoes, green beans, sugar free ice cream and a diet coke 05/10/25 180 Physician Expected Discharge Date: 05/12/2025 Discharge Delays: PT Six Click Score: 17 OT Six Click Score: 21 PT Recommendations: Patient is able to return to prior living environment (presents from SNF) OT Recommendations: Patient is able to return to prior living environment New Consults: Therapy Orders (From admission, onward) Start Ordered 05/10/25410 PT eval and treat Until therapy completed Question: Reason for PT? Answer: weakness 05/10/25 0411 05/10/25 041 OT eval and treat Until therapy completed Question: Reason for OT? Answer: gait abnormality 05/10/25410 * Assessment & Plan Note - Julio Cesar Medina MD - 05/15/2025 1:32 PM EDTAssociated Problem(s): Acute congestive heart failure (CMS/HCC) Acute on chronic heart failure with preserved EF BNP of 736 Echo 05/10 showed EF preserved. Moderate AAS and AR, mild MR and TR Cardiac cath was done on 05/11: Moderate coronary artery disease and wedge pressure of 28 with cardiac output of 5.4 L/min cardiac index of 2.7 L/min/m?? Echo was done and showed EF appear preserved. Moderate to severe aortic stenosis Lasix 40 IV every 8 hours, likely to be switched to p.o. today Continue goal-directed medical therapy Farxiga, labetalol, Aldactone Farxiga and Aldactone were added. Patient also on labetalol Patient was evaluated by cardiothoracic team felt that patient undergo TAVR with possible PCI to LAD. Plan for TAVR today by interventional cardiology She is too high risk for CABG/AVR specially with history of CVA * Assessment & Plan Note - Julio Cesar Medina MD - 05/15/2025 1:32 PM EDTAssociated Problem(s): Chronic kidney disease Not sure baseline kidney function, creatinine today 1.61 Will decrease Lasix to 40 mg daily * Assessment & Plan Note - Julio Cesar Medina MD - 05/15/2025 1:19 PM EDTAssociated Problem(s): Primary hypertension Continue current clonidine 0.2/3 times daily, hydralazine 25/ 3 times daily and labetalol * Assessment & Plan Note - Julio Cesar Medina MD - 05/15/2025 1:19 PM EDTAssociated Problem(s): History of CVA (cerebrovascular accident) On aspirin and Zetia * Assessment & Plan Note - Julio Cesar Medina MD - 05/15/2025 1:19 PM EDTAssociated Problem(s): Type 2 diabetes mellitus, with long-term current use of insulin ([facility]) Continue sliding scale insulin A1c came back of 9.3 * Assessment & Plan Note - Julio Cesar Medina MD - 05/15/2025 1:19 PM EDTAssociated Problem(s): Other hyperlipidemia Continue Zetia * Assessment & Plan Note - Julio Cesar Medina MD - 05/15/2025 1:19 PM EDTAssociated Problem(s): Chronic atrial fibrillation ([facility]) CHADS2 DS vascular score is 7 currently on Xarelto Patient already on labetalol * Assessment & Plan Note - Julio Cesar Medina MD - 05/15/2025 1:19 PM EDTAssociated Problem(s): Elevated troponin Highest troponin went up to 26 Likely combination of chronic kidney disease and CHF * Op Note - Negro Lopez MD - 05/15/2025 12:46 PM EDT TAVR Operative Note Date: 05/15/2025 Location: [facility] (Cath) Name: Nadir Guallpariley, : 1940, Diagnosis Pre-op Diagnosis * Nonrheumatic aortic valve stenosis [I35.0] Post-op Diagnosis * Nonrheumatic aortic valve stenosis [I35.0] INDICATION: Nadir Beth is a 85 y.o. 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 he was evaluated in Cardiology and Cardiothoracic Surgery Clinics, and was deemedappropriate for TAVR as treatment for his aortic valve stenosis. He is admitted with acute decompensated diastolic heart failure. he had shared decision making and agreed to the procedure. he is brought today for that purpose. PROCEDURES: Successful transcatheter aortic valve replacement using a 26 mm Le MOIZ 3 Ultra RESILIA valve deployed at nominal volume +2 ml via percutaneous transfemoral access. Aortic root angiography. Placement of a temporary pacemaker wire. Left heart catheterization. Access into the right internal jugular vein, right and left common femoral arteries under ultrasound guidance. Preclosure in the right common femoral artery using two 6-Moldovan ProGlide devices. Angio-Seal vascular closure in the left common femoral artery. Placement of SENTINEL cerebral embolic protection device. OPERATORS: Interventional Cardiology Electrical Controls Engineer: Mike Cisneros MD Cardiac Surgery Electrical Controls Engineer: Negro Lopez MD Machine Builder Interventional Cardiology Electrical Controls Engineer: Shamar Nolan METHODS: Procedure was explained to the patient with risks and benefits. he signed informed consent. he was brought to labor training manager in a fasting state. The procedure was performed in the cardiac labor training manager under conscious sedation. The right wrist area was prepped and draped in usual fashion. Access was obtained using ultrasound guidance and micropuncture technique in the right radial artery and a 6-Moldovan x 11cm Hydrophilic sheath was placed. Verapamil was given through the sheath. Both groin areas, and theright neck area were prepped and draped in usual fashion. Ultrasound guidance was used for micropuncture access in the right internal jugular vein and a 6-Moldovan x 11 cm introducer sheath was secured in place. Micropuncture technique and ultrasound guidance were used for access in the right common femoral artery and inner cannula angiography was performed followed by upsizing to a 6-Moldovan x 11 cm sheath. The same was done for the access in the left common femoral artery. At this time, we proceeded with the preclosure in the right common femoral artery using 2 crossing Perclose devices and the access was then upsized over a wire to a 10-Moldovan sheath. A 5-Moldovan balloon-tipped pacemaker wire was advanced through the internal jugular vein sheath to the right ventricular apex and adequate capture was confirmed. Heparin was given intravenously and therapeutic ACT confirmed during the rest of the procedure and additional heparin given as needed. Through the left common femoral sheath, an angled 6-Moldovan pigtail catheter was then advanced to the ascending aorta and placed in the noncoronary cusp. Aortic root angiography was performed in the coplanar view as determined by prior CT scan measurements. A 6-Moldovan IM diagnostic catheter was then advanced through the right radial sheath and then navigated using an 0.035 inch wire to the ascending aorta and this was used to place an exchange length [place] 0.014 inch wire. The wire was advanced to the left carotid artery. A [place] device was then prepped using standard techniques and then advanced. The proximal filter was deployed in the innominate artery followed by deployment of the distal filter. The [place] device was then secured in place. The right common femoral access was then upsized using an exchange length Lunderquist wire [which was placed through a multipurpose catheter] to the 14- Moldovan Le E-sheath. The sheath was securedin place. A 6-Moldovan AL1 diagnostic catheter was advanced via the E-sheath, and using a straight stiff Glidewire, the aortic valve was crossed and the catheter was advanced in the left ventricular cavity, and using an exchange length J-wire, a 6-Moldovan angled pigtail catheter was advanced to make sure no entanglement under mitral valve apparatus. The pigtail catheter was then used to place an exchange length Amplatz Extra Stiff wire with a distal curve. Based on the prior CT scan measurements, we proceeded with a Le MOIZ 3 Ultra RESILIA 26 mm valve. This was prepped using standard technique at nominal volume +2 ml. The valve was then advanced over the wire and across the aortic valve. Aortic root angiography in the coplanar view was performed confirming adequate valve position. Under rapid pacing at 180 beats per minute, the valve was deployed. The balloon was deflated, and pacing was stopped. The delivery catheter was retracted. The delivery catheter of the valve was exchanged over the wire to a 6-Moldovan angled pigtail catheter which was advanced across the valve into the left ventricular cavity and usedto perform left heart catheterization and assessment of the valvular gradient. There was 0 mm Hg mean transvalvular gradient. Echocardiography was performed showing no perivalvular leak and 2 mmHg mean gradient across the valve, and no pericardial effusion. Aortic root angiography was then performed with power injection of contrast showing trivial paravalvular leak and adequate position of the valve at 100/0 aortic/ventricular. The pigtail catheters were retracted. The [place] device was recaptured. At this stage, the procedure was concluded. An electrocardiogram was performed showing atrial fibrillation and new LBBB. Therefore, the temporary pacemaker wire was secured in place. The previously placed Perclose sutures were tightened in the right common femoral artery achieving good hemostasis. A 6-Moldovan Angioseal device was used for hemostasis in the left common femoral artery. Distal pulsesin the feet were comparable to baseline. The radial sheath was removed and TR band was used for hemostasis in the right radial artery. The internal jugular venous sheath was secured in place. Protamine 50 mg was administered at the end of the procedure. he tolerated the procedure well. he was hemodynamically stable and awake throughout the procedure with no apparent complications. he will be transferred to the hospital bed for further management. Procedure Summary Anesthesia: Moderate Sedation ASA: ASA status not filed in the log. Estimated Blood Loss: 10 mL Drains: Male External Urinary Catheter (Active) Output (mL) 600 mL 05/15/25 0512 Implants Type Name Action Serial No. Pacemaker ELECTRODE,PACING,TEMP,5F,110CM - [id number] Used, Not Implanted Prosthetic Valve KIT,HEART VALVE,SAPIEN3,26MM - [id number] - [id number] Implanted [id number] Staff: Scrub Person: Tita Deal RT; Inderjit Sanchez RT Documenter: Makenzie Brown RT; Mulu Pimentel RT Invasive Nurse: BRANDEN Johnson MD Cardiac Surgery * Pre-Sedation Documentation - Mike Cisneros MD - 05/15/2025 9:16 AM EDT Patient: Nadir Beth Procedure Information Date/Time: 05/15/25 1100 Procedure: TAVR Location: [facility] / [facility] (Cath) Providers: Mike Cisneros MD Clinical information reviewed: Tobacco Allergies Meds Med Hx Surg Hx Fam Hx Soc Hx Physical Exam Airway Mallampati: III TM distance: >3 FB Neck ROM: full Cardiovascular Rhythm: irregular Rate: normal (+) murmur Dental Pulmonary Breath sounds clear to auscultation Neurological Abdominal Anesthesia Plan ASA 3 other (Conscious sedation.) Anesthetic plan and risks discussed with patient. Use of blood products discussed with patient who consented to blood products. Additional Equipment Requests * Care Plan - Radha Ortiz RN - 05/15/2025 4:32 AM EDT The patient is Moderately Stable - Low risk of patient condition declining or worsening The patient's goals for the shift include comfort, rest The clinical goals for the shift include vss, safety Problem: Pain - Adult Goal: Verbalizes/displays adequate comfort level or baseline comfort level Outcome: Progressing Problem: Safety - Adult Goal: Free from fall injury Outcome: Progressing Problem: Discharge Planning Goal: Discharge to home or other facility with appropriate resources Outcome: Progressing Flowsheets (Taken 05/14/20251999) Discharge to home or other facility with appropriate resources: Identify barriers to discharge with patient and caregiver Arrange for needed discharge resources and transportation as appropriate Identify discharge learning needs (meds, wound care, etc) Problem: Chronic Conditions and Co-morbidities Goal: Patient's chronic conditions and co-morbidity symptoms are monitored and maintained or improved Outcome: Progressing Flowsheets (Taken 05/14/20251999) Care Plan - Patient's Chronic Conditions and Co-Morbidity Symptoms are Monitored and Maintained or Improved: Collaborate with multidisciplinary team to address chronic and comorbid conditions and prevent exacerbation or deterioration Monitor and assess patient's chronic conditions and comorbid symptoms for stability, deterioration,or improvement Update acute care plan with appropriate goals if chronic or comorbid symptoms are exacerbated and prevent overall improvement and discharge Problem: Heart Failure diagnosis knowledge deficit Goal: Patient will verbalize understanding of how heart failure affects the body Outcome: Progressing Goal: Patient will verbalize understanding of how other conditions affect the heart Outcome: Progressing Problem: Fluid retention/overload Goal: Patient will be able to identify signs and symptoms of fluid retention Outcome: Progressing Problem: Heart failure medication adherence Goal: Consistently take heart failure medication as prescribed Outcome: Progressing Problem: Insufficient exercise regimen Goal: Patient will engage in physical activity safely Outcome: Progressing Problem: Heart failure progression and care needs Goal: Patient will verbalize understanding of heart failure progression Outcome: Progressing Problem: Heart failure maintenance Goal: Patient will not experience any symptoms of shortness of breath or body swelling over the next 3 months Outcome: Progressing * Assessment & Plan Note - Julio Cesar Medina MD - 05/14/2025 12:13 PM EDTAssociated Problem(s): Primary hypertension Continue current clonidine 0.2/3 times daily, hydralazine 25/ 3 times daily and labetalol * Assessment & Plan Note - Julio Cesar Medina MD - 05/14/2025 12:13 PM EDTAssociated Problem(s): Acute congestive heart failure (CMS/HCC) Acute on chronic heart failure with preserved EF BNP of 736 Echo 05/10 showed EF preserved. Moderate AAS and AR, mild MR and TR Cardiac cath was done on 05/11: Moderate coronary artery disease and wedge pressure of 28 with cardiac output of 5.4 L/min cardiac index of 2.7 L/min/m?? Echo was done and showed EF appear preserved. Moderate to severe aortic stenosis Lasix 40 IV every 8 hours, likely to be switched to p.o. today Continue goal-directed medical therapy Farxiga, labetalol, Aldactone Farxiga and Aldactone were added. Patient also on labetalol Patient was evaluated by cardiothoracic team felt that patient undergo TAVR with possible PCI to LAD. CABG/AVR are too high to put proceed to recommend coronary artery bypass grafting/AVR specially with history of CVA * Assessment & Plan Note - Julio Cesar Medina MD - 05/14/2025 12:13 PM EDTAssociated Problem(s): History of CVA (cerebrovascular accident) On aspirin and Zetia * Assessment & Plan Note - Julio Cesar Medina MD - 05/14/2025 12:13 PM EDTAssociated Problem(s): Type 2 diabetes mellitus, with long-term current use of insulin ([facility]) Continue sliding scale insulin A1c came back of 9.3 * Assessment & Plan Note - Julio Cesar Medina MD - 05/14/2025 12:13 PM EDTAssociated Problem(s): Other hyperlipidemia Continue Zetia * Assessment & Plan Note - Julio Cesar Medina MD - 05/14/2025 12:13 PM EDTAssociated Problem(s): Chronic atrial fibrillation ([facility]) CHADS2 DS vascular score is 7 currently on Xarelto Patient already on labetalol * Assessment & Plan Note - Julio Cesar Medina MD - 05/14/2025 12:13 PM EDTAssociated Problem(s): Chronic kidney disease Not sure baseline kidney function, creatinine today 1.74 Will decrease Lasix to 40 mg daily * Assessment & Plan Note - Julio Cesar Medina MD - 05/14/2025 12:13 PM EDTAssociated Problem(s): Elevated troponin Highest troponin went up to 26 Likely combination of chronic kidney disease and CHF * Care Plan - Ynes Bloom RN - 05/14/2025 12:13 PM EDT Daily Case Management Update Multidisciplinary rounds have been completed. Barriers to Discharge: patient s/p heart cath, CT Surgery consulted for possible CABG/AVR versus TAVR/possible PCI if needed. CT Surgery rec TAVR with possible PCI of LAD. Cardiology consulted and has possible plan to take patient for TAVR Tomorrow. Discharge dispo: pending clinical course, PT/OT rec Patient is able to return to prior living environment (Presents from SNF). Plan at this time is for patient to discharge to [facility] when medically ready. Diet: Dietary Orders (From admission, onward) Start Ordered 05/14/25 0631 Special Kitchen Request Once Comments: Omelet with green pepper, kyrgyz cheese and onion, 1 slice wheat toast, decaf coffee, cheerios with 2% milk please :) 05/14/25 0633 05/12/25 0700 Special Kitchen Request Once Comments: Fruit cup, 1 piece of wheat toast, southwest eggs, raisin bran and decaf coffee please :) 05/12/25 0410 05/11/25 1135 Regular Diet Heart Healthy/HTN, CABG,Stroke, (2gNA, low fat, low cholesterol) Diet effective now Question Answer Comment Room Service? Yes Fat restriction: Heart Healthy/HTN, CABG,Stroke, (2gNA, low fat, low cholesterol) 05/11/25 1134 05/10/25 1807 Special Kitchen Request Once Comments: Please deliver on last round! Hot turkey sandwich with mashed potatoes, green beans, sugar free ice cream and a diet coke 05/10/25 180 Physician Expected Discharge Date: 05/14/2025 Discharge Delays: PT Six Click Score: 18 OT Six Click Score: 21 PT Recommendations: Patient is able to return to prior living environment (Presents from SNF) OT Recommendations: Patient is able to return to prior living environment New Consults: Therapy Orders (From admission, onward) Start Ordered 05/10/25410 PT eval and treat Until therapy completed Question: Reason for PT? Answer: weakness 05/10/25 0411 05/10/25 041 OT eval and treat Until therapy completed Question: Reason for OT? Answer: gait abnormality 05/10/25410 * Care Plan - Joselito Lyon RN - 05/14/2025 10:47 AM EDT The patient is Moderately Stable - Low risk of patient condition declining or worsening The patient's goals for the shift include comfort, rest The clinical goals for the shift include vss, safety Over the shift, the patient did make progress toward the following goals. Problem: Pain - Adult Goal: Verbalizes/displays adequate comfort level or baseline comfort level Outcome: Progressing Problem: Safety - Adult Goal: Free from fall injury Outcome: Progressing Problem: Discharge Planning Goal: Discharge to home or other facility with appropriate resources Outcome: Progressing Problem: Chronic Conditions and Co-morbidities Goal: Patient's chronic conditions and co-morbidity symptoms are monitored and maintained or improved Outcome: Progressing Problem: Heart Failure diagnosis knowledge deficit Goal: Patient will verbalize understanding of how heart failure affects the body Outcome: Progressing Goal: Patient will verbalize understanding of how other conditions affect the heart Outcome: Progressing Problem: Fluid retention/overload Goal: Patient will be able to identify signs and symptoms of fluid retention Outcome: Progressing Problem: Heart failure medication adherence Goal: Consistently take heart failure medication as prescribed Outcome: Progressing Problem: Insufficient exercise regimen Goal: Patient will engage in physical activity safely Outcome: Progressing Problem: Heart failure progression and care needs Goal: Patient will verbalize understanding of heart failure progression Outcome: Progressing Problem: Heart failure maintenance Goal: Patient will not experience any symptoms of shortness of breath or body swelling over the next 3 months Outcome: Progressing * Care Plan - Yolanda Syed RN - 05/13/2025 6:46 PM EDT The patient is Moderately Stable - Low risk of patient condition declining or worsening The patient's goals for the shift include comfort, rest The clinical goals for the shift include VSS, comfort Problem: Pain - Adult Goal: Verbalizes/displays adequate comfort level or baseline comfort level Outcome: Progressing Problem: Safety - Adult Goal: Free from fall injury Outcome: Progressing Problem: Discharge Planning Goal: Discharge to home or other facility with appropriate resources Outcome: Progressing Problem: Chronic Conditions and Co-morbidities Goal: Patient's chronic conditions and co-morbidity symptoms are monitored and maintained or improved Outcome: Progressing Problem: Heart Failure diagnosis knowledge deficit Goal: Patient will verbalize understanding of how heart failure affects the body Outcome: Progressing Goal: Patient will verbalize understanding of how other conditions affect the heart Outcome: Progressing Problem: Fluid retention/overload Goal: Patient will be able to identify signs and symptoms of fluid retention Outcome: Progressing Problem: Heart failure medication adherence Goal: Consistently take heart failure medication as prescribed Outcome: Progressing Problem: Insufficient exercise regimen Goal: Patient will engage in physical activity safely Outcome: Progressing Problem: Heart failure progression and care needs Goal: Patient will verbalize understanding of heart failure progression Outcome: Progressing Problem: Heart failure maintenance Goal: Patient will not experience any symptoms of shortness of breath or body swelling over the next 3 months Outcome: Progressing * Assessment & Plan Note - Julio Cesar Medina MD - 05/13/2025 10:52 AM EDTAssociated Problem(s): Primary hypertension Continue current clonidine 0.2 3 times daily, hydralazine 25 3 times daily and labetalol * Assessment & Plan Note - Julio Cesar Medina MD - 05/13/2025 10:52 AM EDTAssociated Problem(s): Acute congestive heart failure (CMS/HCC) Acute on chronic heart failure with preserved EF BNP of 736 Echo 05/10 showed EF preserved. Moderate AAS and AR, mild MR and TR Cardiac cath was done on 05/11: Moderate coronary artery disease and wedge pressure of 28 with cardiac output of 5.4 L/min cardiac index of 2.7 L/min/m?? Echo was done and showed EF appear preserved. Moderate to severe aortic stenosis Lasix 40 IV every 8 hours, likely to be switched to p.o. today Continue goal-directed medical therapy Farxiga, labetalol, Aldactone Farxiga and Aldactone were added. Patient also on labetalol Patient was evaluated by cardiothoracic team felt that patient undergo TAVR with possible PCI to LAD. Plan to be done outpatient CABG/AVR are too high to put proceed to recommend coronary artery bypass grafting/AVR specially with history of CVA * Assessment & Plan Note - Julio Cesar Medina MD - 05/13/2025 10:52 AM EDTAssociated Problem(s): History of CVA (cerebrovascular accident) On aspirin and Zetia * Assessment & Plan Note - Julio Cesar Medina MD - 05/13/2025 10:52 AM EDTAssociated Problem(s): Type 2 diabetes mellitus, with long-term current use of insulin ([facility]) Continue sliding scale insulin A1c came back of 9.3 * Assessment & Plan Note - Julio Cesar Medina MD - 05/13/2025 10:52 AM EDTAssociated Problem(s): Other hyperlipidemia Continue Zetia * Assessment & Plan Note - Julio Cesar Medina MD - 05/13/2025 10:52 AM EDTAssociated Problem(s): Chronic atrial fibrillation ([facility]) CHADS2 DS vascular score is 7 currently on Xarelto Patient already on labetalol * Assessment & Plan Note - Julio Cesar Medina MD - 05/13/2025 10:52 AM EDTAssociated Problem(s): Chronic kidney disease Not sure baseline kidney function, creatinine today 1.65 * Assessment & Plan Note - Julio Cesar Medina MD - 05/13/2025 10:52 AM EDTAssociated Problem(s): Elevated troponin Highest troponin went up to 26 Likely combination of chronic kidney disease and CHF * Care Plan - Yuni Patrick RN - 05/12/2025 11:01 PM EDT The patient is Moderately Stable - Low risk of patient condition declining or worsening The patient's goals for the shift include Comfort, rest The clinical goals for the shift include Stable vitals, comfort * Care Plan - Yolanda Syed RN - 05/12/2025 2:52 PM EDT The patient is Moderately Stable - Low risk of patient condition declining or worsening The patient's goals for the shift include comfort, rest The clinical goals for the shift include VSS; safety Problem: Pain - Adult Goal: Verbalizes/displays adequate comfort level or baseline comfort level Outcome: Progressing Problem: Safety - Adult Goal: Free from fall injury Outcome: Progressing Problem: Discharge Planning Goal: Discharge to home or other facility with appropriate resources Outcome: Progressing Problem: Chronic Conditions and Co-morbidities Goal: Patient's chronic conditions and co-morbidity symptoms are monitored and maintained or improved Outcome: Progressing Problem: Heart Failure diagnosis knowledge deficit Goal: Patient will verbalize understanding of how heart failure affects the body Outcome: Progressing Goal: Patient will verbalize understanding of how other conditions affect the heart Outcome: Progressing Problem: Fluid retention/overload Goal: Patient will be able to identify signs and symptoms of fluid retention Outcome: Progressing Problem: Heart failure medication adherence Goal: Consistently take heart failure medication as prescribed Outcome: Progressing Problem: Insufficient exercise regimen Goal: Patient will engage in physical activity safely Outcome: Progressing Problem: Heart failure progression and care needs Goal: Patient will verbalize understanding of heart failure progression Outcome: Progressing Problem: Heart failure maintenance Goal: Patient will not experience any symptoms of shortness of breath or body swelling over the next 3 months Outcome: Progressing * Assessment & Plan Note - Julio Cesar Medina MD - 05/12/2025 12:34 PM EDTAssociated Problem(s): Chronic atrial fibrillation (CMS/HCC) CHADS2 DS vascular score is 7 currently on Xarelto Patient already on labetalol * Assessment & Plan Note - Julio Cesar Medina MD - 05/12/2025 12:32 PM EDTAssociated Problem(s): Primary hypertension Continue current clonidine 0.2 3 times daily, hydralazine 25 3 times daily and labetalol * Assessment & Plan Note - Julio Cesar Medina MD - 05/12/2025 12:32 PM EDTAssociated Problem(s): Acute congestive heart failure (CMS/HCC) Acute on chronic heart failure with preserved EF BNP of 736 Echo 05/10 showed EF preserved. Moderate AAS and AR, mild MR and TR Cardiac cath was done on 05/11: Moderate coronary artery disease and wedge pressure of 28 with cardiac output of 5.4 L/min cardiac index of 2.7 L/min/m?? Echo was done and showed EF appear preserved. Moderate to severe aortic stenosis Lasix 40 IV every 8 hours Continue goal-directed medical therapy Farxiga, labetalol, Aldactone Farxiga and Aldactone were added. Patient also on labetalol Patient was evaluated by cardiothoracic team felt that patient undergo TAVR with possible PCI to LAD. CABG/AVR are too high to put proceed to recommend coronary artery bypass grafting/AVR specially with history of CVA * Assessment & Plan Note - Julio Cesar Medina MD - 05/12/2025 12:32 PM EDTAssociated Problem(s): History of CVA (cerebrovascular accident) On aspirin and Zetia * Assessment & Plan Note - Julio Cesar Medina MD - 05/12/2025 12:32 PM EDTAssociated Problem(s): Type 2 diabetes mellitus, with long-term current use of insulin (CMS/HCC) Continue sliding scale insulin A1c came back of 9.3 * Assessment & Plan Note - Julio Cesar Medina MD - 05/12/2025 12:32 PM EDTAssociated Problem(s): Other hyperlipidemia Continue Zetia * Assessment & Plan Note - Julio Cesar Medina MD - 05/12/2025 12:32 PM EDTAssociated Problem(s): Chronic kidney disease Not sure baseline kidney function, creatinine today 1.63 * Assessment & Plan Note - Julio Cesar Medina MD - 05/12/2025 12:32 PM EDTAssociated Problem(s): Elevated troponin Highest troponin went up to 26 Likely combination of chronic kidney disease and CHF * Care Plan - Radha Ortiz RN - 05/12/2025 6:07 AM EDT The patient is Moderately Stable - Low risk of patient condition declining or worsening The patient's goals for the shift include comfrot, rest The clinical goals for the shift include vss, safety Problem: Pain - Adult Goal: Verbalizes/displays adequate comfort level or baseline comfort level Outcome: Progressing Problem: Safety - Adult Goal: Free from fall injury Outcome: Progressing Problem: Discharge Planning Goal: Discharge to home or other facility with appropriate resources Outcome: Progressing Flowsheets (Taken 05/11/20252009) Discharge to home or other facility with appropriate resources: Identify barriers to discharge with patient and caregiver Arrange for needed discharge resources and transportation as appropriate Identify discharge learning needs (meds, wound care, etc) Problem: Chronic Conditions and Co-morbidities Goal: Patient's chronic conditions and co-morbidity symptoms are monitored and maintained or improved Outcome: Progressing Flowsheets (Taken 05/11/20252009) Care Plan - Patient's Chronic Conditions and Co-Morbidity Symptoms are Monitored and Maintained or Improved: Monitor and assess patient's chronic conditions and comorbid symptoms for stability, deterioration,or improvement Collaborate with multidisciplinary team to address chronic and comorbid conditions and prevent exacerbation or deterioration Update acute care plan with appropriate goals if chronic or comorbid symptoms are exacerbated and prevent overall improvement and discharge Problem: Heart Failure diagnosis knowledge deficit Goal: Patient will verbalize understanding of how heart failure affects the body Outcome: Progressing Goal: Patient will verbalize understanding of how other conditions affect the heart Outcome: Progressing Problem: Fluid retention/overload Goal: Patient will be able to identify signs and symptoms of fluid retention Outcome: Progressing Problem: Heart failure medication adherence Goal: Consistently take heart failure medication as prescribed Outcome: Progressing Problem: Insufficient exercise regimen Goal: Patient will engage in physical activity safely Outcome: Progressing Problem: Heart failure progression and care needs Goal: Patient will verbalize understanding of heart failure progression Outcome: Progressing Problem: Heart failure maintenance Goal: Patient will not experience any symptoms of shortness of breath or body swelling over the next 3 months Outcome: Progressing * Assessment & Plan Note - Negro Lopez MD - 05/11/2025 5:43 PM EDTAssociated Problem(s): Chest pain * Assessment & Plan Note - Negro Lopez MD - 05/11/2025 5:43 PM EDTAssociated Problem(s): Primary hypertension * Assessment & Plan Note - Negro Lopez MD - 05/11/2025 5:43 PM EDTAssociated Problem(s): Acute congestive heart failure (CMS/HCC) * Assessment & Plan Note - Negro Lopez MD - 05/11/2025 5:43 PM EDTAssociated Problem(s): History of CVA (cerebrovascular accident) * Assessment & Plan Note - Negro Lopez MD - 05/11/2025 5:43 PM EDTAssociated Problem(s): Type 2 diabetes mellitus, with long-term current use of insulin (CMS/HCC) . No associated orders from this encounter found during lookback period of 72 hours. * Assessment & Plan Note - Negro Lopez MD - 05/11/2025 5:43 PM EDTAssociated Problem(s): Other hyperlipidemia . No associated orders from this encounter found during lookback period of 72 hours. * Assessment & Plan Note - Negro Lopez MD - 05/11/2025 5:43 PM EDTAssociated Problem(s): Chronic atrial fibrillation (CMS/HCC) * Assessment & Plan Note - Negro Lopez MD - 05/11/2025 5:43 PM EDTAssociated Problem(s): Chronic kidney disease * Assessment & Plan Note - Negro Lopez MD - 05/11/2025 5:43 PM EDTAssociated Problem(s): Elevated troponin * Assessment & Plan Note - Negro Lopez MD - 05/11/2025 5:43 PM EDTAssociated Problem(s): Angina pectoris, unstable (CMS/HCC) COrders from past 72 hours: Case Request Special Deputy Sheriff: Coronary angiography, Right heart cath; Standing Cardiac catheterization; Standing * Assessment & Plan Note - Julio Cesar Medina MD - 05/11/2025 4:23 PM EDTAssociated Problem(s): Type 2 diabetes mellitus, with long-term current use of insulin (CMS/HCC) Insulin blood sugar check diet A1c came back of 9.3 * Assessment & Plan Note - Julio Cesar Medina MD - 05/11/2025 4:23 PM EDTAssociated Problem(s): Other hyperlipidemia Continue Zetia * Assessment & Plan Note - Julio Cesar Medina MD - 05/11/2025 4:23 PM EDTAssociated Problem(s): Chronic atrial fibrillation (CMS/HCC) CHADS2 DS vascular score is 7 currently on Eliquis Patient on heparin drip and plan to switch on Eliquis after procedure Patient already on labetalol * Assessment & Plan Note - Julio Cesar Medina MD - 05/11/2025 4:23 PM EDTAssociated Problem(s): Chronic kidney disease Not sure baseline kidney function, creatinine today 1.56, will monitor * Assessment & Plan Note - Julio Cesar Medina MD - 05/11/2025 4:23 PM EDTAssociated Problem(s): Elevated troponin Highest troponin went up to 26 Likely combination of chronic kidney disease and CHF * Assessment & Plan Note - Julio Cesar Medina MD - 05/11/2025 4:23 PM EDTAssociated Problem(s): Primary hypertension Continue current clonidine 0.2 3 times daily, hydralazine 25 3 times daily and labetalol * Assessment & Plan Note - Julio Cesar Medina MD - 05/11/2025 4:23 PM EDTAssociated Problem(s): Acute congestive heart failure (CMS/HCC) Acute on chronic heart failure with preserved EF BNP of 736 Echo 05/10 showed EF preserved. Moderate AAS and AR, mild MR and TR Patient scheduled for cardiac cath today Lasix 40 IV every 8 hours Continue goal-directed medical therapy Farxiga, labetalol, Aldactone Uptitrate meds after Cardiac cath * Assessment & Plan Note - Julio Cesar Medina MD - 05/11/2025 4:23 PM EDTAssociated Problem(s): History of CVA (cerebrovascular accident) On aspirin statin with deconditioning and gait abnormality with fall risk PT OT to see him * Care Plan - Gisela Ramirez RN - 05/11/2025 10:16 AM EDT The patient is Moderately Stable - Low risk of patient condition declining or worsening The patient's goals for the shift include comfort rest The clinical goals for the shift include VSS Over the shift, the patient did not make progress toward the following goals. Barriers to progression include. Recommendations to address these barriers include. * Pre-Sedation Documentation - Shamar Nolan MD - 05/11/2025 10:04 AM EDT Patient: Nadir Beth Procedure Information Date/Time: 05/11/25 1130 Procedures: Coronary angiography Right heart cath Location: [facility] / [facility] (Cath) Providers: Shamar Nolan MD Clinical information reviewed: Tobacco Allergies Meds Med Hx Surg Hx Fam Hx Soc Hx Physical Exam Airway Mallampati: III TM distance: <3 FB Neck ROM: full Cardiovascular - normal exam Rhythm: regular (+) murmur Dental Pulmonary - normal exam Neurological Abdominal - normal exam Anesthesia Plan ASA 3 other (Conscious sedation) Anesthetic plan and risks discussed with patient. Use of blood products discussed with patient who consented to blood products. Additional Equipment Requests * Significant Event - Мария Holland RN - 05/10/2025 3:34 PM EDT 05/10/25 1520 Admission Assessment Questions Verify insurance with patient Yes Do you understand medical disease or what brought you into the hospital? Yes Who is your current PCP? Pj Sung Can I schedule a follow up appointment for you at the time of discharge? No () Do you understand why you are taking your current medications? Yes Are you taking your medications as prescribed? Yes Did patient provide teach back? Yes Pharmacy Bedside Delivery Status Interested ([facility] in [facility]) Does the patient have a case resource manager assigned to them through their insurance? No Living Arrangement (Current/Prior to Hospitalization) Private residence;Inpatient rehab facility (2 story house w/ 5 steps. Lives with his and she is able to help after discharge as needed. Came to us from [facility] x 3 weeks / Bedhold.) Does the patient have history of HHC or SNF? Yes (Hx HHC et Current SNF.) Assistive Device Walker;Wheelchair (@ [facility]. Walker at home.) Patient's goal for discharge [facility] Was patient reminded that goal for discharge is 11am? Yes Does the patient have transportation at discharge? No Type of Residence Inpatient behavioral health unit/facility Is PT/OT appropriate? Yes Is PT/OT ordered? No Is SW consult appropriate? Yes Is SW consult ordered? Yes Do you understand the benefits of MyChart? Yes Were you able to send link and activate MyChart? Yes Admission Assessment Completed with the patient's family members at his bedside. * Care Plan - Yolanda Syed RN - 05/10/2025 2:33 PM EDT The patient is Moderately Stable - Low risk of patient condition declining or worsening The patient's goals for the shift include comfort, rest The clinical goals for the shift include VSS Problem: Pain - Adult Goal: Verbalizes/displays adequate comfort level or baseline comfort level Outcome: Progressing Problem: Safety - Adult Goal: Free from fall injury Outcome: Progressing Problem: Discharge Planning Goal: Discharge to home or other facility with appropriate resources Outcome: Progressing Problem: Chronic Conditions and Co-morbidities Goal: Patient's chronic conditions and co-morbidity symptoms are monitored and maintained or improved Outcome: Progressing Problem: Heart Failure diagnosis knowledge deficit Goal: Patient will verbalize understanding of how heart failure affects the body Outcome: Progressing Goal: Patient will verbalize understanding of how other conditions affect the heart Outcome: Progressing Problem: Fluid retention/overload Goal: Patient will be able to identify signs and symptoms of fluid retention Outcome: Progressing Problem: Heart failure medication adherence Goal: Consistently take heart failure medication as prescribed Outcome: Progressing Problem: Insufficient exercise regimen Goal: Patient will engage in physical activity safely Outcome: Progressing Problem: Heart failure progression and care needs Goal: Patient will verbalize understanding of heart failure progression Outcome: Progressing Problem: Heart failure maintenance Goal: Patient will not experience any symptoms of shortness of breath or body swelling over the next 3 months Outcome: Progressing * Care Plan - Мария Holland RN - 05/10/2025 7:27 AM EDT Daily Case Management Update Barriers to Discharge et per Progress Note: Transfer from [facility] for elevated BNP et BLEEdema. CHF. TTE. HS Trop this am = 21. Cardiology Consulted; pending. PT OT SW ordered; pending. UPDATE @ 0900 Multidisciplinary Rounds completed with Dr. Medina. Diet: Physician Expected Discharge Date: 05/12/2025 Discharge Delays: PT Six Click Score: OT Six Click Score: PT Recommendations: OT Recommendations: New Consults: Consult Orders (From admission, onward) Start Ordered 05/10/25 0425 Inpatient consult to Cardiology Once Specialty: Cardiology Provider: (Not yet assigned) Question Answer Comment Consulting Group CARDIOLOGY TEAM Reason for Consult? Hypertensive urgency CHF Level of Consultation Consultation and Management 05/10/25 0424 Ancillary Consults (From admission, onward) Start Ordered 05/10/25 0409 Inpatient consult to Social Work Once Provider: (Not yet assigned) Question Answer Comment Select all services needed for the patient Other Other: Heart Failure 05/10/25 0411 05/10/25 0409 Consult to Nutrition Services Once Provider: (Not yet assigned) Question: Reason for Consult? Answer: Heart Failure 05/10/25 0411 Therapy Orders (From admission, onward) Start Ordered 05/10/25 0411 PT eval and treat Until therapy completed Question: Reason for PT? Answer: weakness 05/10/25 0411 05/10/25 0411 OT eval and treat Until therapy completed Question: Reason for OT? Answer: gait abnormality 05/10/25410 * Assessment & Plan Note - Estuardo Reed MD - 05/10/2025 4:23 AM EDT Associated Problem(s): Primary hypertension Adjust antihypertensives low-salt diet with renal insufficiency unable to start JAY or ARB * Assessment & Plan Note - Estuardo Reed MD - 05/10/2025 4:23 AM EDT Associated Problem(s): Acute congestive heart failure (CMS/[facility]) Per review of chart patient has diastolic heart failure had history of pericardial effusion as wellwe will optimize guideline directed medical therapy with limitation due to renal insufficiency obtain echocardiogram cycle troponins cardiology to see him * Assessment & Plan Note - Estuardo Reed MD - 05/10/2025 4:23 AM EDT Associated Problem(s): History of CVA (cerebrovascular accident) On aspirin statin with deconditioning and gait abnormality with fall risk PT OT to see him * Assessment & Plan Note - Estuardo Reed MD - 05/10/2025 4:23 AM EDT Associated Problem(s): Type 2 diabetes mellitus, with long-term current use of insulin (CMS/HCC) Insulin blood sugar check diet * Assessment & Plan Note - Estuardo Reed MD - 05/10/2025 4:23 AM EDT Associated Problem(s): Other hyperlipidemia Antilipemic agents diet * Assessment & Plan Note - Estuardo Reed MD - 05/10/2025 4:23 AM EDT Associated Problem(s): Chronic atrial fibrillation (CMS/HCC) CHADS2 DS vascular score is 7 currently on Eliquis Chronic kidney disease stage IIIb avoid nephrotoxic meds hypovolemia nephrology consult * Care Plan - Karen Paula RN - 05/10/2025 2:53 AM EDT The patient is Moderately Stable - Low risk of patient condition declining or worsening The patient's goals for the shift include comfort The clinical goals for the shift include VSS documented in this encounter Plan of Treatment Upcoming Encounters Date Type Department Care Team (Late st Contact Info) Description 06/18/2025 11:30 AM EDT Office Visit [address] [phone] Mike Cisneros MD [address] [facility] [address] [place] [address] 07/11/2025 1:30 PM EDT Follow-Up [facility] [address] [place] [phone] Jeff Hutton MD [address] [place] [id number] Pending Results Name Type Priority Associated Diagnoses Date /Time Cardiac event monitor Cardiac Services Routine S/P TAVR (transcatheter aortic valve replacement) LBBB (left bundle branch block) Cardiac arrhythmia, unspecified cardiac arrhythmia type Palpitations 05/17/2025 8:59 PM EDT Scheduled Orders Name Type Priority Associated Diagnoses Orde r Schedule Cardiac event monitor Cardiac Services Routine S/P TAVR (transcatheter aortic valve replacement) LBBB (left bundle branch block) Cardiac arrhythmia, unspecified cardiac arrhythmia type Palpitations Once for 1 Occurrences starting 05/17/2025 until 05/17/2025 XR chest 2 views Imaging Routine Pleural effusion Expected: 05/24/2025, Expires: 05/17/2026 Cardiac event monitor Cardiac Services Routine LBBB (left bundle branch block) Palpitations Expected: 05/17/2025 (Approximate), Expires: 05/17/2027 Scheduled Referrals Name Type Priority Associated Diagnoses Order Schedule Ambulatory referral to Cardiac Rehab Outpatient Referral Routine S/P TAVR (transcatheter aortic valve replacement) Expected: 05/15/2025 (Approximate), Expires: 11/15/2025 Ambulatory referral to Pulmonology Outpatient Referral Routine Pleural effusion Expected: 05/17/2025 (Approximate), Expires: 11/17/2025 documented as of this encounter Procedures Procedure Name Priority Date/Time Associated Diagnosis Comments POCT GLUCOSE METER UNSOLICITED RESULTS Routine 05/17/2025 4:24 PM EDT POCT GLUCOSE METER UNSOLICITED RESULTS Routine 05/17/2025 11:04 AM EDT CBC WITH AUTO DIFFERENTIAL Pending Discharge 05/17/2025 8:59 AM EDT MANUAL DIFFERENTIAL Pending Discharge 05/17/2025 8:59 AM EDT CBC AND DIFFERENTIAL Routine 05/17/2025 8:59 AM EDT COMPREHENSIVE METABOLIC PANEL Pending Discharge 05/17/2025 8:59 AM EDT LIMITED ECHOCARDIOGRAM (TTE) W/ LTD DOPPLER AND COLOR FLOW Routine 05/17/2025 8:23 AM EDT POCT GLUCOSE METER UNSOLICITED RESULTS Routine 05/17/2025 7:16 AM EDT POCT GLUCOSE METER UNSOLICITED RESULTS Routine 05/16/2025 8:20 PM EDT POCT GLUCOSE METER UNSOLICITED RESULTS Routine 05/16/2025 4:10 PM EDT APTT STAT 05/16/2025 3:04 PM EDT POCT GLUCOSE METER UNSOLICITED RESULTS Routine 05/16/2025 11:35 AM EDT ECG 12-LEAD Routine 05/16/2025 11:31 AM EDT BLOOD CULTURE Pending Discharge 05/16/2025 11:08 AM EDT BLOOD CULTURE Pending Discharge 05/16/2025 11:08 AM EDT XR CHEST 1 VIEW Routine 05/16/2025 10:37 AM EDT LIMITED ECHOCARDIOGRAM (TTE) W/ LTD DOPPLER AND COLOR FLOW Routine 05/16/2025 10:32 AM EDT ECG 12-LEAD STAT 05/16/2025 10:10 AM EDT POCT GLUCOSE METER UNSOLICITED RESULTS Routine 05/16/2025 8:16 AM EDT APTT Pending Discharge 05/16/2025 6:45 AM EDT ACTIVATED CLOTTING TIME Routine 05/16/2025 5:08 AM EDT ACTIVATED CLOTTING TIME Routine 05/16/2025 5:08 AM EDT ACTIVATED CLOTTING TIME Routine 05/16/2025 5:08 AM EDT ACTIVATED CLOTTING TIME Routine 05/16/2025 5:08 AM EDT CBC Pending Discharge 05/16/2025 3:10 AM EDT BASIC METABOLIC PANEL Pending Discharge 05/16/2025 3:10 AM EDT POCT GLUCOSE METER UNSOLICITED RESULTS Routine 05/15/2025 10:27 PM EDT POCT GLUCOSE METER UNSOLICITED RESULTS Routine 05/15/2025 5:59 PM EDT ECG 12-LEAD Routine 05/15/2025 3:35 PM EDT LIMITED ECHOCARDIOGRAM (TTE) W/ LTD DOPPLER AND COLOR FLOW Routine 05/15/2025 2:34 PM EDT TAVR Routine 05/15/2025 2:29 PM EDT Nonrheumatic aortic valve stenosis APTT STAT 05/15/2025 11:34 AM EDT POCT GLUCOSE METER UNSOLICITED RESULTS Routine 05/15/2025 11:23 AM EDT XR TRANSFER OF OUTSIDE FILMS Routine 05/15/2025 9:[address] TRANSFER OF OUTSIDE FILMS Routine 05/15/2025 9:18 AM EDT POCT GLUCOSE METER UNSOLICITED RESULTS Routine 05/15/2025 7:55 AM EDT APTT Pending Discharge 05/15/2025 3:39 AM EDT CBC Pending Discharge 05/15/2025 3:39 AM EDT BASIC METABOLIC PANEL Pending Discharge 05/15/2025 3:39 AM EDT EXTRA TUBES Routine 05/14/2025 10:23 PM EDT RED TOP Routine 05/14/2025 10:23 PM EDT APTT Pending Discharge 05/14/2025 10:23 PM EDT ECG 12-LEAD Routine 05/14/2025 8:36 PM EDT POCT GLUCOSE METER UNSOLICITED RESULTS Routine 05/14/2025 8:19 PM EDT VASC US CAROTID ARTERY DUPLEX BILATERAL STAT 05/14/2025 5:23 PM EDT POCT GLUCOSE METER UNSOLICITED RESULTS Routine 05/14/2025 4:56 PM EDT APTT STAT 05/14/2025 3:28 PM EDT PLATELET COUNT STAT 05/14/2025 3:28 PM EDT POCT GLUCOSE METER UNSOLICITED RESULTS Routine 05/14/2025 12:13 PM EDT POCT GLUCOSE METER UNSOLICITED RESULTS Routine 05/14/2025 7:05 AM EDT EXTRA TUBES Routine 05/14/2025 3:38 AM EDT LAVENDER TOP Routine 05/14/2025 3:38 AM EDT BASIC METABOLIC PANEL Pending Discharge 05/14/2025 3:38 AM EDT POCT GLUCOSE METER UNSOLICITED RESULTS Routine 05/13/2025 8:55 PM EDT POCT GLUCOSE METER UNSOLICITED RESULTS Routine 05/13/2025 4:44 PM EDT POCT GLUCOSE METER UNSOLICITED RESULTS Routine 05/13/2025 11:37 AM EDT POCT GLUCOSE METER UNSOLICITED RESULTS Routine 05/13/2025 7:04 AM EDT CBC Pending Discharge 05/13/2025 3:43 AM EDT BASIC METABOLIC PANEL Pending Discharge 05/13/2025 3:43 AM EDT POCT GLUCOSE METER UNSOLICITED RESULTS Routine 05/12/2025 8:04 PM EDT POCT GLUCOSE METER UNSOLICITED RESULTS Routine 05/12/2025 4:15 PM EDT POCT GLUCOSE METER UNSOLICITED RESULTS Routine 05/12/2025 11:23 AM EDT ANTI-FACTOR XA Pending Discharge 05/12/2025 9:26 AM EDT POCT GLUCOSE METER UNSOLICITED RESULTS Routine 05/12/2025 7:07 AM EDT EXTRA TUBES Routine 05/12/2025 3:46 AM EDT LAVENDER TOP Routine 05/12/2025 3:46 AM EDT ANTI-FACTOR XA Pending Discharge 05/12/2025 3:46 AM EDT BASIC METABOLIC PANEL Pending Discharge 05/12/2025 3:46 AM EDT POCT GLUCOSE METER UNSOLICITED RESULTS Routine 05/11/2025 9:02 PM EDT ANTI-FACTOR XA Routine 05/11/2025 8:42 PM EDT POCT GLUCOSE METER UNSOLICITED RESULTS Routine 05/11/2025 4:42 PM EDT CTA ABDOMEN PELVIS W IV CONTRAST Routine 05/11/2025 2:23 PM EDT CTA CHEST W IV CONTRAST Routine 05/11/2025 2:23 PM EDT POCT GLUCOSE METER UNSOLICITED RESULTS Routine 05/11/2025 11:35 AM EDT RIGHT HEART CATH Routine 05/11/2025 11:0 5 AM EDT Angina pectoris, unstable (CMS/HCC) Acute diastolic congestive heart failure (CMS/HCC) CORONARY ANGIOGRAPHY Routine 05/11/2025 11:05 AM EDT Angina pectoris, unstable (CMS/HCC) Acute diastolic congestive heart failure (CMS/HCC) POCT HBO2% Routine 05/11/2025 10:41 AM EDT ANTI-FACTOR XA STAT 05/11/2025 8:36 AM EDT POCT GLUCOSE METER UNSOLICITED RESULTS Routine 05/11/2025 7:48 AM EDT EXTRA TUBES Routine 05/11/2025 4:28 AM EDT LIGHT BLUE TOP Routine 05/11/2025 4:28 AM EDT CBC Routine 05/11/2025 4:27 AM EDT HEMOGLOBIN A1C Add-On 05/11/2025 4:27 AM EDT LIPID PANEL Add-On 05/11/2025 4:27 AM EDT BASIC METABOLIC PANEL Routine 05/11/2025 4:27 AM EDT ANTI-FACTOR XA Routine 05/11/2025 12:26 AM EDT POCT GLUCOSE METER UNSOLICITED RESULTS Routine 05/10/2025 8:13 PM EDT ANTI-FACTOR XA Routine 05/10/2025 5:34 PM EDT POCT GLUCOSE METER UNSOLICITED RESULTS Routine 05/10/2025 4:23 PM EDT ANTI-FACTOR XA Timed 05/10/2025 2:10 PM EDT POCT GLUCOSE METER UNSOLICITED RESULTS Routine 05/10/2025 11:17 AM EDT HIGH SENSITIVITY TROPONIN I Timed 05/10/2025 10:51 AM EDT APTT STAT 05/10/2025 10:51 AM EDT PLATELET COUNT STAT 05/10/2025 10:51 AM EDT COMPLETE ECHO (TTE) Routine 05/10/2025 9 :49 AM EDT HIGH SENSITIVITY TROPONIN I Timed 05/10/2025 8:21 AM EDT B-TYPE NATRIURETIC PEPTIDE Routine 05/10/2025 8:21 AM EDT POCT GLUCOSE METER UNSOLICITED RESULTS Routine 05/10/2025 7:17 AM EDT HIGH SENSITIVITY TROPONIN I Timed 05/10/2025 4:54 AM EDT TSH3 REFLEX TO FT4 Routine 05/10/2025 4: 54 AM EDT CBC WITH AUTO DIFFERENTIAL Routine 05/10/2025 4:54 AM EDT CBC AND DIFFERENTIAL Routine 05/10/2025 4:54 AM EDT MAGNESIUM Routine 05/10/2025 4:54 AM EDT COMPREHENSIVE METABOLIC PANEL Routine 05/10/2025 4:54 AM EDT documented in this encounter Results * (ABNORMAL) POCT glucose meter (05/17/2025 4:24 PM EDT) Glucose POC 331(H) 70 - 105 mg/dL 05/17/2025 4:36 PM EDT [facility] ([facility]) Comment:[email or web address] Blood Capillary blood specimen / Unknown 05/17/2025 4:24 PM EDT 05/17/2025 4:36 PM EDT [facility] ([facility]) - 05/17/2025 4:36 PM EDT Waived Testing in the ED is performed under the ED CLIA certificate #[id number]. us Nikolas Gonzalez MD LAB BLOOD ORDERABLES Final Resul t [facility] ([facility]) [address] [place] [address] * (ABNORMAL) POCT glucose meter (05/17/2025 11:04 AM EDT) Glucose POC 310(H) 70 - 105 mg/dL 05/17/2025 11:14 AM EDT [facility] ([facility]) Comment:[email or web address] Blood Capillary blood specimen / Unknown 05/17/2025 11:04 AM EDT 05/17/2025 11:14 AM EDT [facility] ([facility]) - 05/17/2025 11:14 AM EDT Waived Testing in the ED is performed under the ED CLIA certificate #[id number]. us Nikolas Gonzalez MD LAB BLOOD ORDERABLES Final Resul t [facility] ([facility]) [address] [place] [address] * (ABNORMAL) Manual Differential (05/17/2025 8:59 AM EDT) Immature Granulocytes % 0.6 0.0 - 1.0 % 05/17/2025 11:57 AM EDT [facility] ([facility]) Neutrophils Absolute 9.2(H) 1.6 - 7.6 10*3/uL 05/17/2025 11:57 AM EDT [facility] ([facility]) Lymphocytes Absolute 0.87(L) 1.20 - 4.00 10*3/uL 05/17/2025 11:57 AM EDT [facility] ([facility]) Monocytes Absolute 1.92(H) 0.10 - 1.00 10*3/uL 05/17/2025 11:57 AM EDT [facility] ([facility]) Eosinophils Absolute 0.05 0.00 - 0.50 10*3/uL 05/17/2025 11:57 AM EDT [facility] ([facility]) Basophils Absolute 0.05 0.00 - 0.20 10*3/uL 05/17/2025 11:57 AM EDT [facility] ([facility]) Neutrophils % 75.6(H) 40.0 - 72.0 % 05/17/2025 11:57 AM EDT [facility] ([facility]) Lymphocytes % 7.2(L) 20.0 - 45.0 % 05/17/2025 11:57 AM EDT [facility] ([facility]) Monocytes % 15.8(H) 5.0 - 12.0 % 05/17/2025 11:57 AM EDT [facility] ([facility]) Eosinophils % 0.4 0.0 - 6.0 % 05/17/2025 11:57 AM EDT [facility]) Basophils % 0.4 0.0 - 1.0 % 05/17/2025 11:57 AM EDT [facility] ([facility]) Immature Granulocytes Absolute 0.07 0.00 - 0.20 10*3/uL 05/17/2025 11:57 AM EDT [facility] ([facility]) Blood Venous blood specimen / Unknown Venipuncture / Unknown 05/17/2025 8:59 AM EDT 05/17/2025 9:12 AM EDT us Nikolas Gonzalez MD LAB BLOOD ORDERABLES Final Resul t [facility] ([facility]) [address] [place] [address] * (ABNORMAL) Comprehensive metabolic panel (05/17/2025 8:59 AM EDT) Sodium 140 136 - 145 mmol/L 05/17/2025 9:44 AM EDT [facility] ([facility]) Potassium 3.9 3.5 - 5.1 mmol/L 05/17/2025 9:44 AM EDT [facility] ([facility]) Chloride 104 98 - 107 mmol/L 05/17/2025 9:44 AM EDT [facility] ([facility]) CO2 25 21 - 31 mmol/L 05/17/2025 9:44 AM EDT [facility] ([facility]) Anion Gap 15 7 - 20 mmol/L 05/17/2025 9:44 AM EDT [facility] ([facility]) BUN 38(H) 7 - 25 mg/dL 05/17/2025 9:44 AM EDT [facility] ([facility]) Creatinine 1.73(H) 0.70 - 1.30 mg/dL 05/17/2025 9:44 AM EDT [facility] ([facility]) BUN/Creatinine Ratio 22.0 07/0 01/2025 9:44 AM EDT [facility] ([facility]) Glucose 239(H) 70 - 100 mg/dL 05/17/2025 9:44 AM EDT [facility] ([facility]) Calcium 8.6 8.6 - 10.3 mg/dL 05/17/2025 9:44 AM EDT [facility] ([facility]) AST 13 13 - 39 U/L 05/17/2025 9:44 AM EDT [facility] ([facility]) ALT (SGPT) <3(L) 7 - 52 U/L 05/17/2025 9:44 AM EDT [facility] ([facility]) Alkaline Phosphatase 68 34 - 104 U/L 05/17/2025 9:44 AM EDT [facility] ([facility]) Total Protein 6.3 6.0 - 8.3 g/dL 05/17/2025 9:44 AM EDT [facility] ([facility]) Albumin 3.4(L) 3.5 - 5.7 g/dL 05/17/2025 9:44 AM EDT [facility] ([facility]) Total Bilirubin 0.5 0.3 - 1.0 mg/dL 05/17/2025 9:44 AM EDT [facility] ([facility]) eGFR 38.0(L) >60.0 mL/min/1. 73m*2 05/17/2025 9:44 AM EDT [facility] ([facility]) Comment:The [facility] s estimated glomerular filtration rate (eGFR) will no longer include consideration of race in its calculation. The [employer] s eGFR Task Force developed new recommendations for the estimation of the glomerular filtration rate in the [place] They recommend immediate implementation of the new equation refit without the race variable in all laboratories because the calculation does not include race. In addition to not including race in the calculation and reporting, it included diversity in its development, and has acceptable performance characteristics and potential consequences that do not disproportionately affect any one group of individuals. Blood Venous blood specimen / Unknown Venipuncture / Unknown 05/17/2025 8:59 AM EDT 05/17/2025 9:11 AM EDT us Nikolas Gonzalez MD LAB BLOOD ORDERABLES Final Resul t [facility] ([facility]) [address], [place] [id number] * (ABNORMAL) CBC auto differential (05/17/2025 8:59 AM EDT) Auto WBC 12.14(H) 4.00 - 10.60 10*3/uL 05/17/2025 9:21 AM EDT [facility] ([facility]) RBC 4.06(L) 4.20 - 5.70 10*6/uL 05/17/2025 9:21 AM EDT [facility] ([facility]) Hemoglobin 10.4(L) 13.0 - 17.0 g/dL 05/17/2025 9:21 AM EDT [facility] ([facility]) Hematocrit 34.2(L) 39.0 - 50.0 % 05/17/2025 9:21 AM EDT [facility] ([facility]) MCV 84.2 82.0 - 98.0 fL 05/17/2025 9:21 AM EDT [facility] ([facility]) MCH 25.6(L) 27.0 - 33.0 pg 05/17/2025 9:21 AM EDT [facility] ([facility]) MCHC 30.4(L) 32.0 - 35.0 g/dL 05/17/2025 9:21 AM EDT [facility] ([facility]) RDW 19.8(H) 11.5 - 15.0 % 05/17/2025 9:21 AM EDT [facility] ([facility]) Platelets 256 150 - 400 10*3/uL 05/17/2025 9:21 AM EDT [facility] ([facility]) nRBC % 0.0 0 % 05/17/2025 9:21 AM EDT [facility] ([facility]) Blood Venous blood specimen / Unknown Venipuncture / Unknown 05/17/2025 8:59 AM EDT 05/17/2025 9:12 AM EDT us Nikolas Gonzalez MD LAB BLOOD ORDERABLES Final Resul t [facility]) [address] [place] [address] * LIMITED ECHOCARDIOGRAM (TTE) W/ LTD DOPPLER AND COLOR FLOW (05/17/2025 8:23 AM EDT) Anatomical Region Laterality Modality Other 05/17/2025 8:04 AM EDT Narrative 05/17/2025 11:46 AM EDT 1 [facility] Heart Station [address] [place] [address] [phone] (fax) Echocardiogram-[facility] Name: NADIR BETH Study Date: 05/17/2025 08:04 AM B/P: 115 mmHg/40 mmHg HR: Date of : 1940 Location: [facility] Height: 71 in. Age: 85 year(s) Patient Room: [facility]4 Weight: 160 lb. Gender: Male Patient Status: InPt BSA: 1.92 m2 Indication: Pericardial Effusion, S/P TAVR procedure;26 mm Le Moiz S3 Ultra Resilia valve Examination: Limited Echo/Limited Doppler, Color flow imaging Image Quality: Fair Patient Consent: Procedure explained to patient Conclusions Left Ventricle: Global left ventricular systolic function is difficult to assess due to rhythm but appears preserved. Right Ventricle: Right ventricular systolic function appears normal. Doppler studies suggest severely elevated right sided pressures. Left Atrium: The left atrium appears enlarged. Aortic Valve: The TAVR valve appears to be well seated with no residual flow.. Tricuspid Valve: Mild-moderate tricuspid regurgitation. Pericardium: There is a small to moderate pericardial effusion. Pericardial effusion appears unchanged from 05/16/25. Measurements Left Ventricle Label Value Normal Value LVOT VTI 16.3 cm (18cm - 22cm) LVOT PGmax 3 mmHg LVOT PGmean 2 mmHg Tricuspid Valve Label Value Normal Value RA Pressure 15 mmHg RVSP 73 mmHg Valvular Assessment LVOT 0.7 - 1.1 m/sec Aortic Valve 1.0 - 1.7 m/sec Mitral Valve 0.6 - 1.3 m/sec Tricuspid Valve 0.3 - 0.7 m/sec Pulmonic Valve 0.6 - 0.9 m/sec Regurgitation Trivial MildMod Max Velocity 0.82 m/sec Findings Left Ventricle: Global left ventricular systolic function is difficult to assess due to rhythm but appears preserved. Right Ventricle: Right ventricular systolic function appears normal. Doppler studies suggest severely elevated right sided pressures. Left Atrium: The left atrium appears enlarged. Right Atrium: The right atrium appears enlarged. Mitral Valve: The mitral valve is normal in mobility and thickness. Trivial mitral regurgitation. Aortic Valve: The TAVR valve appears to be well seated with no residual flow.. Tricuspid Valve: Normal tricuspid valve. Mild-moderate tricuspid regurgitation. Pulmonic Valve: Pulmonary valve not visualized. Great Vessels: IVC: The IVC is mildly dilated. Respiratory inspiration less than 50%. Pericardium: There is a small to moderate pericardial effusion. Pericardial effusion appears unchanged from 05/16/25. Procedure Staff Reading Group: [facility] National Sales Representative: Albert Bee RDCS Ordering Physician: NICOLE REYES Procedure Note Geri Delarosa MD - 05/17/2025 1 1 [facility] Heart Station [address] [place] [address] [phone] (fax) Echocardiogram-[facility] Name: NADIR BETH Study Date: 05/17/2025 08:04 AM B/P: 115 mmHg/40 mmHg HR: Date of : 1940 Location: [facility] Height: 71 in. Age: 85 year(s) Patient Room: 3184 Weight: 160 lb. Gender: Male Patient Status: InPt BSA: 1.92 m2 Indication: Pericardial Effusion, S/P TAVR procedure;26 mm Le Moiz S3 Ultra Resilia valve Examination: Limited Echo/Limited Doppler, Color flow imaging Image Quality: Fair Patient Consent: Procedure explained to patient Conclusions Left Ventricle: Global left ventricular systolic function is difficult to assess due to rhythm but appears preserved. Right Ventricle: Right ventricular systolic function appears normal. Doppler studies suggest severely elevated right sided pressures. Left Atrium: The left atrium appears enlarged. Aortic Valve: The TAVR valve appears to be well seated with no residual flow.. Tricuspid Valve: Mild-moderate tricuspid regurgitation. Pericardium: There is a small to moderate pericardial effusion. Pericardial effusion appears unchanged from 05/16/25. Measurements Left Ventricle Label Value Normal Value LVOT VTI 16.3 cm (18cm - 22cm) LVOT PGmax 3 mmHg LVOT PGmean 2 mmHg Tricuspid Valve Label Value Normal Value RA Pressure 15 mmHg RVSP 73 mmHg Valvular Assessment LVOT 0.7 - 1.1 m/sec Aortic Valve 1.0 - 1.7 m/sec Mitral Valve 0.6 - 1.3 m/sec Tricuspid Valve 0.3 - 0.7 m/sec Pulmonic Valve 0.6 - 0.9 m/sec Regurgitation Trivial MildMod Max Velocity 0.82 m/sec Findings Left Ventricle: Global left ventricular systolic function is difficult to assess due to rhythm but appears preserved. Right Ventricle: Right ventricular systolic function appears normal. Doppler studies suggest severely elevated right sided pressures. Left Atrium: The left atrium appears enlarged. Right Atrium: The right atrium appears enlarged. Mitral Valve: The mitral valve is normal in mobility and thickness. Trivial mitral regurgitation. Aortic Valve: The TAVR valve appears to be well seated with no residual flow.. Tricuspid Valve: Normal tricuspid valve. Mild-moderate tricuspid regurgitation. Pulmonic Valve: Pulmonary valve not visualized. Great Vessels: IVC: The IVC is mildly dilated. Respiratory inspiration less than 50%. Pericardium: There is a small to moderate pericardial effusion. Pericardial effusion appears unchanged from 05/16/25. Procedure Staff Reading Group: [facility] National Sales Representative: Albert Bee RDCS Ordering Physician: NICOLE REYES us Nicole Reyes MD CV ECHO PROCEDURES Final Result * (ABNORMAL) POCT glucose meter (05/17/2025 7:16 AM EDT) Glucose POC 235(H) 70 - 105 mg/dL 05/17/2025 7:29 AM EDT [facility] ([facility]) Comment:[email or web address] Blood Capillary blood specimen / Unknown 05/17/2025 7:16 AM EDT 05/17/2025 7:29 AM EDT Narrative [facility] ([facility]) - 05/17/2025 7:29 AM EDT Waived Testing in the ED is performed under the ED CLIA certificate #[id number]. us Nikolas Gonzalez MD LAB BLOOD ORDERABLES Final Resul t [facility] ([facility]) [address] [place] [address] * (ABNORMAL) POCT glucose meter (05/16/2025 8:20 PM EDT) Glucose POC 374(H) 70 - 105 mg/dL 05/16/2025 8:31 PM EDT [facility] ([facility]) Comment:[email or web address] Blood Capillary blood specimen / Unknown 05/16/2025 8:20 PM EDT 05/16/2025 8:31 PM EDT [facility] ([facility]) - 05/16/2025 8:31 PM EDT Waived Testing in the ED is performed under the ED CLIA certificate #[id number]. Mike Cisneros MD LAB BLOOD ORDERABLES Final R esult Performing Organization Address [facility]/ZIP Co de Phone Number [facility]) [address] [place] [address] * (ABNORMAL) POCT glucose meter (05/16/2025 4:10 PM EDT) Glucose POC 292(H) 70 - 105 mg/dL 05/16/2025 4:32 PM EDT [facility] ([facility]) Comment:[email or web address] Blood Capillary blood specimen / Unknown 05/16/2025 4:10 PM EDT 05/16/2025 4:32 PM EDT [facility]) - 05/16/2025 4:32 PM EDT Waived Testing in the ED is performed under the ED CLIA certificate #[id number]. Mike Cisneros MD LAB BLOOD ORDERABLES Final R esult [facility]) [address] [place] [address] * (ABNORMAL) APTT (05/16/2025 3:04 PM EDT) aPTT 77.8(H) 25.0 - 35.0 Seconds 05/16/2025 3:56 PM EDT [facility] ([facility]) Comment:Clinical significanc e of the APTT is questionable in the presence of heparin. Blood Venous blood specimen / Unknown Venipuncture / Unknown 05/16/2025 3:04 PM EDT 05/16/2025 3:17 PM EDT Mike Cisneros MD LAB BLOOD ORDERABLES Final R esult Performing Organization Address City/[facility] Co de Phone Number [facility] ([facility]) [address] [place] [address] * (ABNORMAL) POCT glucose meter (05/16/2025 11:35 AM EDT) Glucose POC 254(H) 70 - 105 mg/dL 05/16/2025 11:46 AM EDT [facility] ([facility]) Comment:[email or web address] Blood Capillary blood specimen / Unknown 05/16/2025 11:35 AM EDT 05/16/2025 11:46 AM EDT Narrative [facility] ([facility]) - 05/16/2025 11:46 AM EDT Waived Testing in the ED is performed under the ED CLIA certificate #[id number]. Mike Cisneros MD LAB BLOOD ORDERABLES Final R esult Performing Organization Address [facility] Co de Phone Number [facility]) [address] [place] [address] * ECG 12 lead (05/16/2025 11:31 AM EDT) Ventricular Rate 85 BPM GE MUSE QRS DURATION 146 ms GE MUSE QT Interval 424 ms GE MUSE QTC CALCULATION(BAZE TT) 504 ms GE MUSE R-[place] -56 degrees GE MUSE T Wave [place] 106 degrees GE MUSE 05/16/2025 11:2 6 AM EDT 05/16/2025 4:16 PM EDT Impressions GE MUSE - 05/16/2025 4:16 PM EDT Atrial fibrillation Left axis deviation Left bundle branch block Abnormal ECG When compared with ECG of 16-MAY-2025 10:06, (unconfirmed) No significant change was found Confirmed by Kasandra DELAROSA, GERI Penn ([id number]) on 05/16/2025 4:16:44 PM Narrative Procedure Note Geri Delarosa MD - 05/16/2025 IMPRESSION: Atrial fibrillation Left axis deviation Left bundle branch block Abnormal ECG When compared with ECG of 16-MAY-2025 10:06, (unconfirmed) No significant change was found Confirmed by Kasandra DELAROSA, GERI Penn (57) on 05/16/2025 4:16:44 PM us Mike Cisneros MD ECG ORDERABLES Final Result GE MUSE * Blood culture, peripheral #2 (05/16/2025 11:08 AM EDT) Blood Culture No growth at 5 days DAVE 05/21/2025 12:01 PM EDT [facility] ([facility]) Blood Venous blood specimen / Unknown Venipuncture / Unknown 05/16/2025 11:08 AM EDT 05/16/2025 11:13 AM EDT us García Tse MD LAB MICROBIOLOGY - GENERAL ORDE RABLES Final Result [facility] ([facility]) [address] [place] [address] * Blood culture, peripheral #1 (05/16/2025 11:08 AM EDT) Blood Culture No growth at 5 days DAVE 05/21/2025 12:01 PM EDT [facility] ([facility]) Blood Venous blood specimen / Unknown Venipuncture / Unknown 05/16/2025 11:08 AM EDT 05/16/2025 11:16 AM EDT us García Tse MD LAB MICROBIOLOGY - GENERAL JOJO CURRIE Final Result [facility] ([facility]) [address] [place], [place] [id number] * XR chest 1 view (05/16/2025 10:37 AM EDT) Anatomical Region Laterality Modality Chest Computed Radiogr aphy 05/16/2025 10:5 3 AM EDT Impressions 05/16/2025 11:02 AM EDT Fluid overload. Evaluate position of the tip of the electronic lead which is thought to be positioned near the apex of the right ventricle. Electronically signed: Mark Melendez MD. Narrative 05/16/2025 11:02 AM EDT XR CHEST 1 VIEW 05/16/2025 10:09 AM CLINICAL INDICATIONS: Shortness of breath COMPARISON: None FINDINGS: Right-sided electronic lead noted projected in the region of the right ventricle. Aortic valve replacement.. There is congested lungs particularly on the right with effusion and and poor definition of the lung base and the right hemidiaphragm. Similar changes on the left. Procedure Note Mark Melendez MD - 05/16/2025 XR CHEST 1 VIEW 05/16/2025 10:09 AM CLINICAL INDICATIONS: Shortness of breath COMPARISON: None FINDINGS: Right-sided electronic lead noted projected in the region of theright ventricle. Aortic valve replacement.. There is congested lungs particularly on the right with effusion and andpoor definition of the lung base and the right hemidiaphragm. Similar changeson the left. IMPRESSION: Fluid overload. Evaluate position of the tip of the electronic lead which is thought karlo positioned near the apex of the right ventricle. Electronically signed: Mark Melendez MD. García Tse MD IMG XR PROCEDURES Final Result * LIMITED ECHOCARDIOGRAM (TTE) W/ LTD DOPPLER AND COLOR FLOW (05/16/2025 10:32 AM EDT) Anatomical Region Laterality Modality Other 05/16/2025 10:0 5 AM EDT Narrative 05/16/2025 3:18 PM EDT 1 1 [facility] Heart Station [address] [place] [address] [phone] (fax) Echocardiogram-[facility] Name: NADIR BETH Study Date: 05/16/2025 10:05 AM B/P: 125 mmHg/44 mmHg HR: Date of : 1940 Location: [facility] Height: 71 in. Age: 85 year(s) Patient Room: 3184 Weight: 158 lb. Gender: Male Patient Status: InPt BSA: 1.91 m2 Indication: Aortic Valve Stenosis, S/P TAVR procedure;26 mm [place] S3 Ultra Resilia valve Examination: Limited Echo/Limited Doppler, Color flow imaging Image Quality: Fair Patient Consent: Procedure explained to patient Conclusions Left Ventricle: The left ventricle appears normal in size. Global left ventricular systolic function is normal. The EF is 65 % visually. Left ventricular wall thickness is normal. No regional wall motion abnormality. Right Ventricle: The right ventricle appears normal in size. Right ventricular systolic function appears normal. Left Atrium: The left atrium appears enlarged. Right Atrium: The right atrium appears enlarged. Mitral Valve: Mild mitral regurgitation. Aortic Valve: The TAVR valve is well seated in the aortic position with normal Doppler flows. No prosthesis regurgitation. Aortic Valve Measurements AV PGmean: 5.00 mmHg. Tricuspid Valve: Moderate tricuspid regurgitation. Pericardium: There is a small to moderate pericardial effusion. Features are not consistent with tamponade physiology. Measurements Left Ventricle Label Value Normal Value LVOT VTI 21.9 cm (18cm - 22cm) LVOT PGmax 4 mmHg LVEF visual 65 % LVOT PGmean 2 mmHg Aortic Valve Label Value Normal Value AV DVI 0.64 AV VTI 28.7 cm Valvular Assessment LVOT 0.7 - 1.1 m/sec Aortic Valve 1.0 - 1.7 m/sec Mitral Valve 0.6 - 1.3 m/sec Tricuspid Valve 0.3 - 0.7 m/sec Pulmonic Valve 0.6 - 0.9 m/sec Regurgitation Mild Moderate Max Velocity 1.00 m/sec 1.57 m/s Max Gradient 10.00 mmHg Mean Gradient 5.00 mmHg Findings Left Ventricle: The left ventricle appears normal in size. Global left ventricular systolic function is normal. The EF is 65 % visually. Left ventricular wall thickness is normal. No regional wall motion abnormality. Right Ventricle: The right ventricle appears normal in size. Right ventricular systolic function appears normal. A pacemaker wire is seen in the right ventricle. Left Atrium: The left atrium appears enlarged. Right Atrium: The right atrium appears enlarged. Mitral Valve: There is nonspecific thickening of the mitral valve leaflet. Mild mitral annular calcification. Mild mitral regurgitation. Aortic Valve: The TAVR valve is well seated in the aortic position with normal Doppler flows. No prosthesis regurgitation. Aortic Valve Measurements AV PGmean: 5.00 mmHg. Tricuspid Valve: Normal tricuspid valve. Moderate tricuspid regurgitation. Pulmonic Valve: Pulmonary valve appears normal. Aorta: The aortic root exhibits normal size. Great Vessels: IVC: The inferior vena cava is poorly visualized. Pericardium: There is a small to moderate pericardial effusion. Features are not consistent with tamponade physiology. Procedure Staff Reading Group: [facility] National Sales Representative: Katelyn Martinez RDCS Ordering Physician: Shamar Nolan MD Procedure Note Geri Delarosa MD - 05/16/2025 1 1 [facility] Heart Station [address] [place] [address] [phone] (fax) Echocardiogram-[facility] Name: NADIR BETH Study Date: 05/16/2025 10:05 AM B/P: 125 mmHg/44 mmHg HR: Date of : 1940 Location: [facility] Height: 71 in. Age: 85 year(s) Patient Room: 3184 Weight: 158 lb. Gender: Male Patient Status: InPt BSA: 1.91 m2 Indication: Aortic Valve Stenosis, S/P TAVR procedure;26 mm Le Moiz S3 Ultra Resilia valve Examination: Limited Echo/Limited Doppler, Color flow imaging Image Quality: Fair Patient Consent: Procedure explained to patient Conclusions Left Ventricle: The left ventricle appears normal in size. Global left ventricular systolic function is normal. The EF is 65 % visually. Left ventricular wall thickness is normal. No regional wall motion abnormality. Right Ventricle: The right ventricle appears normal in size. Right ventricular systolic function appears normal. Left Atrium: The left atrium appears enlarged. Right Atrium: The right atrium appears enlarged. Mitral Valve: Mild mitral regurgitation. Aortic Valve: The TAVR valve is well seated in the aortic position with normal Doppler flows. No prosthesis regurgitation. Aortic Valve Measurements AV PGmean: 5.00 mmHg. Tricuspid Valve: Moderate tricuspid regurgitation. Pericardium: There is a small to moderate pericardial effusion. Features are not consistent with tamponade physiology. Measurements Left Ventricle Label Value Normal Value LVOT VTI 21.9 cm (18cm - 22cm) LVOT PGmax 4 mmHg LVEF visual 65 % LVOT PGmean 2 mmHg Aortic Valve Label Value Normal Value AV DVI 0.64 AV VTI 28.7 cm Valvular Assessment LVOT 0.7 - 1.1 m/sec Aortic Valve 1.0 - 1.7 m/sec Mitral Valve 0.6 - 1.3 m/sec Tricuspid Valve 0.3 - 0.7 m/sec Pulmonic Valve 0.6 - 0.9 m/sec Regurgitation Mild Moderate Max Velocity 1.00 m/sec 1.57 m/s Max Gradient 10.00 mmHg Mean Gradient 5.00 mmHg Findings Left Ventricle: The left ventricle appears normal in size. Global left ventricular systolic function is normal. The EF is 65 % visually. Left ventricular wall thickness is normal. No regional wall motion abnormality. Right Ventricle: The right ventricle appears normal in size. Right ventricular systolic function appears normal. A pacemaker wire is seen in the right ventricle. Left Atrium: The left atrium appears enlarged. Right Atrium: The right atrium appears enlarged. Mitral Valve: There is nonspecific thickening of the mitral valve leaflet. Mild mitral annular calcification. Mild mitral regurgitation. Aortic Valve: The TAVR valve is well seated in the aortic position with normal Doppler flows. No prosthesis regurgitation. Aortic Valve Measurements AV PGmean: 5.00 mmHg. Tricuspid Valve: Normal tricuspid valve. Moderate tricuspid regurgitation. Pulmonic Valve: Pulmonary valve appears normal. Aorta: The aortic root exhibits normal size. Great Vessels: IVC: The inferior vena cava is poorly visualized. Pericardium: There is a small to moderate pericardial effusion. Features are not consistent with tamponade physiology. Procedure Staff Reading Group: [facility] National Sales Representative: Katelyn Martinez RDCS Ordering Physician: Shamar Nolan MD us Shamar Nolan MD CV ECHO PROCEDURES Final Result * ECG 12 lead (05/16/2025 10:10 AM EDT) Pathologist [facility] Ventricular Rate 87 BPM GE MUSE QRS DURATION 152 ms GE MUSE QT Interval 412 ms GE MUSE QTC CALCULATION(BAZE TT) 495 ms GE MUSE R-[place] -50 degrees GE MUSE T Wave [place] 100 degrees GE MUSE 05/16/2025 10:0 6 AM EDT 05/16/2025 4:16 PM EDT Impressions GE MUSE - 05/16/2025 4:16 PM EDT Atrial fibrillation with a competing junctional pacemaker with premature ventricular or aberrantly conducted complexes Left axis deviation Left bundle branch block Abnormal ECG When compared with ECG of 15-MAY-2025 14:37, No significant change was found Confirmed by Kasandra DELAROSA, GERI Penn ([id number]) on 05/16/2025 4:16:18 PM Narrative Procedure Note Geri Delarosa MD - 05/16/2025 IMPRESSION: Atrial fibrillation with a competing junctional pacemaker with premature ventricular or aberrantly conducted complexes Left axis deviation Left bundle branch block Abnormal ECG When compared with ECG of 15-MAY-2025 14:37, No significant change was found Confirmed by Kasandra DELAROSA SAMER J. ([id number]) on 05/16/2025 4:16:18 PM us Shamar Nolan MD ECG ORDERABLES Final Result GE MUSE * (ABNORMAL) POCT glucose meter (05/16/2025 8:16 AM EDT) [facility] Glucose POC 272(H) 70 - 105 mg/dL 05/16/2025 8:29 AM EDT [facility] ([facility]) Comment:[email or web address] Blood Capillary blood specimen / Unknown 05/16/2025 8:16 AM EDT 05/16/2025 8:29 AM EDT Narrative [facility] ([facility]) - 05/16/2025 8:29 AM EDT Waived Testing in the ED is performed under the ED CLIA certificate #[id number]. Mike Cisneros MD LAB BLOOD ORDERABLES Final R esult Performing Organization Address [facility] Co de Phone Number [facility]) [address] [place] [address] * (ABNORMAL) APTT (05/16/2025 6:45 AM EDT) aPTT 63.8(H) 25.0 - 35.0 Seconds 05/16/2025 7:08 AM EDT [facility] ([facility]) Comment:Clinical significanc e of the APTT is questionable in the presence of heparin. Blood Venous blood specimen / Unknown Existing Catheter / Unknown 05/16/2025 6:45 AM EDT 05/16/2025 6:48 AM EDT Mike Cisneros MD LAB BLOOD ORDERABLES Final R esult Performing Organization Address [facility] de Phone Number [facility]) [address] [place] [phone] * (ABNORMAL) Activated clotting time (05/16/2025 5:08 AM EDT) Activated Clotting Time 284(H) 82 - 152 s 05/16/2025 5:08 AM EDT [facility] ([facility]) Blood Venous blood specimen / Unknown 05/16/2025 5:08 AM EDT 05/16/2025 5:08 AM EDT us Mike Cisneros MD LAB POINT OF CARE TE ST DOCKED DEVICE UNSOLICITED RESULTS Final Result Performing Organization Address City/[facility]/ZIP Co de Phone Number [facility]) [address] [place] [address] * (ABNORMAL) Activated clotting time (05/16/2025 5:08 AM EDT) Activated Clotting Time 240(H) 82 - 152 s 05/16/2025 5:08 AM EDT [facility] ([facility]) Blood Venous blood specimen / Unknown 05/16/2025 5:08 AM EDT 05/16/2025 5:08 AM EDT us Mike Cisneros MD LAB POINT OF CARE TE ST DOCKED DEVICE UNSOLICITED RESULTS Final Result Performing Organization Address City/[facility]/ZIP Co de Phone Number [facility] ([facility]) [address] [place] [address] * (ABNORMAL) Activated clotting time (05/16/2025 5:08 AM EDT) Activated Clotting Time 267(H) 82 - 152 s 05/16/2025 5:08 AM EDT [facility] ([facility]) Blood Venous blood specimen / Unknown 05/16/2025 5:08 AM EDT 05/16/2025 5:08 AM EDT us Mike Cisneros MD LAB POINT OF CARE TE ST DOCKED DEVICE UNSOLICITED RESULTS Final Result Performing Organization Address City/[facility] Co de Phone Number [facility] ([facility]) [address] [place] [address] * (ABNORMAL) Activated clotting time (05/16/2025 5:08 AM EDT) Activated Clotting Time 283(H) 82 - 152 s 05/16/2025 5:08 AM EDT [facility] ([facility]) Blood Venous blood specimen / Unknown 05/16/2025 5:08 AM EDT 05/16/2025 5:08 AM EDT us Mike Cisneros MD LAB POINT OF CARE TE ST DOCKED DEVICE UNSOLICITED RESULTS Final Result [facility] ([facility]) [address] [place] [address] * (ABNORMAL) Basic metabolic panel (05/16/2025 3:10 AM EDT) Sodium 140 136 - 145 mmol/L 05/16/2025 3:52 AM EDT [facility] ([facility]) Potassium 4.2 3.5 - 5.1 mmol/L 05/16/2025 3:52 AM EDT [facility] ([facility]) Chloride 103 98 - 107 mmol/L 05/16/2025 3:52 AM EDT [facility] ([facility]) CO2 22 21 - 31 mmol/L 05/16/2025 3:52 AM EDT [facility] ([facility]) BUN 41(H) 7 - 25 mg/dL 05/16/2025 3:52 AM EDT [facility] ([facility]) Creatinine 1.71(H) 0.70 - 1.30 mg/dL 05/16/2025 3:52 AM EDT [facility] ([facility]) Glucose 222(H) 70 - 100 mg/dL 05/16/2025 3:52 AM EDT [facility] ([facility]) Calcium 8.6 8.6 - 10.3 mg/dL 05/16/2025 3:52 AM EDT [facility] ([facility]) Anion Gap 19 7 - 20 mmol/L 05/16/2025 3:52 AM EDT [facility] ([facility]) eGFR 38.5(L) >60.0 mL/min/1. 73m*2 05/16/2025 3:52 AM EDT [facility] ([facility]) Comment:The [facility] s estimated glomerular filtration rate (eGFR) will no longer include consideration of race in its calculation. The [employer] s eGFR Task Force developed new recommendations for the estimation of the glomerular filtration rate in the [place] They recommend immediate implementation of the new equation refit without the race variable in all laboratories because the calculation does not include race. In addition to not including race in the calculation and reporting, it included diversity in its development, and has acceptable performance characteristics and potential consequences that do not disproportionately affect any one group of individuals. BUN/Creatinine Ratio 24.0 12/2024 3:52 AM EDT [facility] ([facility]) Blood Venous blood specimen / Unknown Existing Catheter / Unknown 05/16/2025 3:10 AM EDT 05/16/2025 3:27 AM EDT us Julio Cesar Medina MD LAB BLOOD ORDERABLES Final Resul t [facility] ([facility]) [address] [place] [address] * (ABNORMAL) CBC (05/16/2025 3:10 AM EDT) Auto WBC 14.93(H) 4.00 - 10.60 10*3/uL 05/16/2025 3:38 AM EDT [facility] ([facility]) RBC 3.94(L) 4.20 - 5.70 10*6/uL 05/16/2025 3:38 AM EDT [facility] ([facility]) Hemoglobin 10.0(L) 13.0 - 17.0 g/dL 05/16/2025 3:38 AM EDT [facility] ([facility]) Hematocrit 33.1(L) 39.0 - 50.0 % 05/16/2025 3:38 AM EDT [facility] ([facility]) MCV 84.0 82.0 - 98.0 fL 05/16/2025 3:38 AM EDT [facility] ([facility]) MCH 25.4(L) 27.0 - 33.0 pg 05/16/2025 3:38 AM EDT [facility] ([facility]) MCHC 30.2(L) 32.0 - 35.0 g/dL 05/16/2025 3:38 AM EDT [facility] ([facility]) RDW 19.5(H) 11.5 - 15.0 % 05/16/2025 3:38 AM EDT [facility] ([facility]) Platelets 306 150 - 400 10*3/uL 05/16/2025 3:38 AM EDT [facility] ([facility]) Blood Venous blood specimen / Unknown Existing Catheter / Unknown 05/16/2025 3:10 AM EDT 05/16/2025 3:27 AM EDT Julio Cesar Medina MD LAB BLOOD ORDERABLES Final Resul t [facility] ([facility]) [address] [place] [address] * (ABNORMAL) POCT glucose meter (05/15/2025 10:27 PM EDT) Glucose POC 193(H) 70 - 105 mg/dL 05/15/2025 10:37 PM EDT [facility] ([facility]) Comment:[email or web address] Blood Capillary blood specimen / Unknown 05/15/2025 10:27 PM EDT 05/15/2025 10:37 PM EDT Narrative [facility] ([facility]) - 05/15/2025 10:37 PM EDT Waived Testing in the ED is performed under the ED CLIA certificate #[id number]. Mike Cisneros MD LAB BLOOD ORDERABLES Final R esult Performing Organization Address City/[facility]/ZIP Co de Phone Number [facility] ([facility]) [address] [place] [phone] * (ABNORMAL) POCT glucose meter (05/15/2025 5:59 PM EDT) Glucose POC 334(H) 70 - 105 mg/dL 05/15/2025 6:10 PM EDT [facility] ([facility]) Comment:[email or web address] Blood Capillary blood specimen / Unknown 05/15/2025 5:59 PM EDT 05/15/2025 6:10 PM EDT Narrative [facility] ([facility]) - 05/15/2025 6:10 PM EDT Waived Testing in the ED is performed under the ED CLIA certificate #[id number]. Mike Cisneros MD LAB BLOOD ORDERABLES Final R esult [facility] [address] [place] [address] * ECG 12 lead (05/15/2025 3:35 PM EDT) Ventricular Rate 99 BPM GE MUSE QRS DURATION 146 ms GE MUSE QT Interval 358 ms GE MUSE QTC CALCULATION(BAZE TT) 459 ms GE MUSE R-[place] -66 degrees GE MUSE T Wave [place] 103 degrees GE MUSE 05/15/2025 2:37 PM EDT 05/15/2025 9:39 PM EDT Impressions GE MUSE - 05/15/2025 9:39 PM EDT Atrial fibrillation Left axis deviation Left bundle branch block Abnormal ECG When compared with ECG of 14-MAY-2025 20:32, (unconfirmed) Left bundle branch block is now Present Criteria for Anterior infarct are no longer Present Confirmed by Kasandra DELAROSA, GERI Penn (57) on 05/15/2025 9:39:26 PM Narrative Procedure Note Geri Delarosa MD - 05/15/2025 IMPRESSION: Atrial fibrillation Left axis deviation Left bundle branch block Abnormal ECG When compared with ECG of 14-MAY-2025 20:32, (unconfirmed) Left bundle branch block is now Present Criteria for Anterior infarct are no longer Present Confirmed by Kasandra DELAROSA SAMER J. ([id number]) on 05/15/2025 9:39:26 PM us Julio Cesar Medina MD ECG ORDERABLES Final Result [facility] * LIMITED ECHOCARDIOGRAM (TTE) W/ LTD DOPPLER AND COLOR FLOW (05/15/2025 2:34 PM EDT) Anatomical Region Laterality Modality Other 05/15/2025 12:4 6 PM EDT Narrative 05/15/2025 3:05 PM EDT 1 1 [facility] Heart Station [address] [place] [address] (fax) Echocardiogram-[facility] Name: NADIR BETH Study Date: 05/15/2025 12:46 PM B/P: 171 mmHg/100 mmHg HR: 87 bpm Date of : 1940 Location: [facility] Height: 72 in. Age: 85 year(s) Patient Room: 3122 Weight: 163 lb. Gender: Male Patient Status: InPt BSA: 1.95 m2 Indication: Aortic stenosis, TAVR procedure Examination: Limited Echo/Limited Doppler, Color flow imaging Image Quality: Fair Patient Consent: Procedure explained to patient Conclusions Left Ventricle: The left ventricle is normal size. Global left ventricular systolic function is normal. The EF is 70 % visually. Left ventricular wall thickness is mildly increased. Right Ventricle: The right ventricle is normal in size. Normal right ventricular systolic function. Left Atrium: The left atrium is severely enlarged. Right Atrium: The right atrium is severely enlarged. Aortic Valve: Pre TAVR: Severe aortic valve calcification is present. No aortic valve regurgitation. Severe aortic valve stenosis. Post TAVR: mean PG 3 mmHg, no valvular or paravalvular insufficiency Pericardium: There is a small pericardial effusion noted prior to TAVR and remained the same post procedure. A left pleural effusion is seen. Overall Conclusions: POST TAVR procedure the mean gradient is 3mmHg with no residual insufficiency. Measurements Left Ventricle Label Value Normal Value LVOT VTI 20.6 cm (18cm - 22cm) LVOT PGmax 4 mmHg LVEF visual 70 % LVDd, 2D 4.87 cm (4.2cm - 5.9cm) IVSd, 2D 0.96 cm (0.6cm - 1.1cm) LVPWd, 2D 1 cm (0.6cm - 1cm) LV Mass, 2D ASE 169.59 g LV Mass Index, 2D ASE 87 g/m?? (50g/m?? - 102.4g/m??) RWT, MM 0.41 (0 - 0.42) LVOT PGmean 3 mmHg Aortic Valve Label Value Normal Value AV DVI 0.29 AV VTI 69.2 cm Great Vessels Label Value Normal Value IVC 2.29 cm (1.2cm - 2.3cm) Valvular Assessment LVOT 0.7 - 1.1 m/sec Aortic Valve 1.0 - 1.7 m/sec Mitral Valve 0.6 - 1.3 m/sec Tricuspid Valve 0.3 - 0.7 m/sec Pulmonic Valve 0.6 - 0.9 m/sec Regurgitation No Stenosis Severe Max Velocity 0.94 m/sec 3.26 m/s Max Gradient 43.00 mmHg Mean Gradient 26.00 mmHg Findings Left Ventricle: The left ventricle is normal size. Global left ventricular systolic function is normal. The EF is 70 % visually. Left ventricular wall thickness is mildly increased. Right Ventricle: The right ventricle is normal in size. Normal right ventricular systolic function. Left Atrium: The left atrium is severely enlarged. Right Atrium: The right atrium is severely enlarged. Mitral Valve: There is nonspecific thickening of the mitral valve leaflet. There is mild mitral annular calcification. Aortic Valve: Pre TAVR: Severe aortic valve calcification is present. No aortic valve regurgitation. Severe aortic valve stenosis. Post TAVR: mean PG 3 mmHg, no valvular or paravalvular insufficiency Tricuspid Valve: Normal tricuspid valve. Pulmonic Valve: Pulmonary valve not well visualized. Great Vessels: IVC: The IVC is mildly dilated. Pericardium: There is a small pericardial effusion noted prior to TAVR and remained the same post procedure. A left pleural effusion is seen. Procedure Staff Reading Group: [facility] National Sales Representative: SEAN Bailey, RDCS Ordering Physician: PROMISE PELAEZ Procedure Note Kyleigh Faulkner MD - 05/15/2025 1 1 [facility] Heart Station [address] [place] [address] [phone] (fax) Echocardiogram-[facility] Name: NADIR BETH Study Date: 05/15/2025 12:46 PM B/P: 171 mmHg/100 mmHg HR: 87 bpm Date of : 1940 Location: [facility] Height: 72 in. Age: 85 year(s) Patient Room: 3122 Weight: 163 lb. Gender: Male Patient Status: InPt BSA: 1.95 m2 Indication: Aortic stenosis, TAVR procedure Examination: Limited Echo/Limited Doppler, Color flow imaging Image Quality: Fair Patient Consent: Procedure explained to patient Conclusions Left Ventricle: The left ventricle is normal size. Global left ventricular systolic function is normal. The EF is 70 % visually. Left ventricular wall thickness is mildly increased. Right Ventricle: The right ventricle is normal in size. Normal right ventricular systolic function. Left Atrium: The left atrium is severely enlarged. Right Atrium: The right atrium is severely enlarged. Aortic Valve: Pre TAVR: Severe aortic valve calcification is present. No aortic valve regurgitation. Severe aortic valve stenosis. Post TAVR: mean PG 3 mmHg, no valvular or paravalvular insufficiency Pericardium: There is a small pericardial effusion noted prior to TAVR and remained the same post procedure. A left pleural effusion is seen. Overall Conclusions: POST TAVR procedure the mean gradient is 3mmHg with no residual insufficiency. Measurements Left Ventricle Label Value Normal Value LVOT VTI 20.6 cm (18cm - 22cm) LVOT PGmax 4 mmHg LVEF visual 70 % LVDd, 2D 4.87 cm (4.2cm - 5.9cm) IVSd, 2D 0.96 cm (0.6cm - 1.1cm) LVPWd, 2D 1 cm (0.6cm - 1cm) LV Mass, 2D ASE 169.59 g LV Mass Index, 2D ASE 87 g/m?? (50g/m?? - 102.4g/m??) RWT, MM 0.41 (0 - 0.42) LVOT PGmean 3 mmHg Aortic Valve Label Value Normal Value AV DVI 0.29 AV VTI 69.2 cm Great Vessels Label Value Normal Value IVC 2.29 cm (1.2cm - 2.3cm) Valvular Assessment LVOT 0.7 - 1.1 m/sec Aortic Valve 1.0 - 1.7 m/sec Mitral Valve 0.6 - 1.3 m/sec Tricuspid Valve 0.3 - 0.7 m/sec Pulmonic Valve 0.6 - 0.9 m/sec Regurgitation No Stenosis Severe Max Velocity 0.94 m/sec 3.26 m/s Max Gradient 43.00 mmHg Mean Gradient 26.00 mmHg Findings Left Ventricle: The left ventricle is normal size. Global left ventricular systolic function is normal. The EF is 70 % visually. Left ventricular wall thickness is mildly increased. Right Ventricle: The right ventricle is normal in size. Normal right ventricular systolic function. Left Atrium: The left atrium is severely enlarged. Right Atrium: The right atrium is severely enlarged. Mitral Valve: There is nonspecific thickening of the mitral valve leaflet. There is mild mitral annular calcification. Aortic Valve: Pre TAVR: Severe aortic valve calcification is present. No aortic valve regurgitation. Severe aortic valve stenosis. Post TAVR: mean PG 3 mmHg, no valvular or paravalvular insufficiency Tricuspid Valve: Normal tricuspid valve. Pulmonic Valve: Pulmonary valve not well visualized. Great Vessels: IVC: The IVC is mildly dilated. Pericardium: There is a small pericardial effusion noted prior to TAVR and remained the same post procedure. A left pleural effusion is seen. Procedure Staff Reading Group: [facility] National Sales Representative: SEAN Bailey, RDCS Ordering Physician: PROMISE PELAEZ Promise Pelaez CARD GAME OPERATOR CV ECHO PROCEDURES Final Resu lt * TAVR (05/15/2025 2:29 PM EDT) Anatomical Region Laterality Modality Other Narrative 05/15/2025 2:54 PM EDT INDICATION: Nadir Beth is a 85 y.o. 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 he was evaluated in Cardiology and Cardiothoracic Surgery Clinics, and was deemed appropriate for TAVR as treatment for his aortic valve stenosis. He is admitted with acute decompensated diastolic heart failure. he had shared decision making and agreed to the procedure. he is brought today for that purpose. PROCEDURES: Successful transcatheter aortic valve replacement using a 26 mm Le MOIZ 3 Ultra RESILIA valve deployed at nominal volume +2 ml via percutaneous transfemoral access. Aortic root angiography. Placement of a temporary pacemaker wire. Left heart catheterization. Access into the right internal jugular vein, right and left common femoral arteries under ultrasound guidance. Preclosure in the right common femoral artery using two 6-[place] ProGlide devices. Angio-Seal vascular closure in the left common femoral artery. Placement of SENTINEL cerebral embolic protection device. OPERATORS: Interventional Cardiology Electrical Controls Engineer: Mike Cisneros MD Cardiac Surgery Electrical Controls Engineer: Negro Lopez MD Machine Builder Interventional Cardiology Electrical Controls Engineer: Shamar Nolan METHODS: Procedure was explained to the patient with risks and benefits. he signed informed consent. he was brought to labor training manager in a fasting state. The procedure was performed in the cardiac labor training manager under conscious sedation. The right wrist area was prepped and draped in usual fashion. Access was obtained using ultrasound guidance and micropuncture technique in the right radial artery and a 6-[place]oldovan x 11 cm Hydrophilic sheath was placed. Verapamil was given through the sheath. Both groin areas, and the right neck area were prepped and draped in usual fashion. Ultrasound guidance was used for micropuncture access in the right internal jugular vein and a 6-[place] x 11 cm introducer sheath was secured in place. Micropuncture technique and ultrasound guidance were used for access in the right common femoral artery and inner cannula angiography was performed followed by upsizing to a 6-[place] x 11 cm sheath. The same was done for the access in the left common femoral artery. At this time, we proceeded with the preclosure in the right common femoral artery using 2 crossing Perclose devices and the access was then upsized over a wire to a 10-Moldovan sheath. A 5-Moldovan balloon-tipped pacemaker wire was advanced through the internal jugular vein sheath to the right ventricular apex and adequate capture was confirmed. Heparin was given intravenously and therapeutic ACT confirmed during the rest of the procedure and additional heparin given as needed. Through the left common femoral sheath, an angled 6-Moldovan pigtail catheter was then advanced to the ascending aorta and placed in the noncoronary cusp. Aortic root angiography was performed in the coplanar view as determined by prior CT scan measurements. A 6-Moldovan IM diagnostic catheter was then advanced through the right radial sheath and then navigated using an 0.035 inch wire to the ascending aorta and this was used to place an exchange length Grandslam 0.014 inch wire. The wire was advanced to the left carotid artery. A [place] device was then prepped using standard techniques and then advanced. The proximal filter was deployed in the innominate artery followed by deployment of the distal filter. The [place] device was then secured in place. The right common femoral access was then upsized using an exchange length Lunderquist wire [which was placed through a multipurpose catheter] to the 14-Moldovan Le E-sheath. The sheath was secured in place. A 6-Moldovan AL1 diagnostic catheter was advanced via the E-sheath, and using a straight stiff Glidewire, the aortic valve was crossed and the catheter was advanced in the left ventricular cavity, and using an exchange length J-wire, a 6-Moldovan angled pigtail catheter was advanced to make sure no entanglement under mitral valve apparatus. The pigtail catheter was then used to place an exchange length Amplatz Extra Stiff wire with a distal curve. Based on the prior CT scan measurements, we proceeded with a Le MOIZ 3 Ultra RESILIA 26 mm valve. This was prepped using standard technique at nominal volume +2 ml. The valve was then advanced over the wire and across the aortic valve. Aortic root angiography in the coplanar view was performed confirming adequate valve position. Under rapid pacing at 180 beats per minute, the valve was deployed. The balloon was deflated, and pacing was stopped. The delivery catheter was retracted. The delivery catheter of the valve was exchanged over the wire to a 6-Moldovan angled pigtail catheter which was advanced across the valve into the left ventricular cavity and used to perform left heart catheterization and assessment of the valvular gradient. There was 0 mm Hg mean transvalvular gradient. Echocardiography was performed showing no perivalvular leak and 2 mmHg mean gradient across the valve, and no pericardial effusion. Aortic root angiography was then performed with power injection of contrast showing trivial paravalvular leak and adequate position of the valve at 100/0 aortic/ventricular. The pigtail catheters were retracted. The Lakeville device was recaptured. At this stage, the procedure was concluded. An electrocardiogram was performed showing atrial fibrillation and new LBBB. Therefore, the temporary pacemaker wire was secured in place. The previously placed Perclose sutures were tightened in the right common femoral artery achieving good hemostasis. A 6-Moldovan Angioseal device was used for hemostasis in the left common femoral artery. Distal pulses in the feet were comparable to baseline. The radial sheath was removed and TR band was used for hemostasis in the right radial artery. The internal jugular venous sheath was secured in place. Protamine 50 mg was administered at the end of the procedure. he tolerated the procedure well. he was hemodynamically stable and awake throughout the procedure with no apparent complications. he will be transferred to the hospital bed for further management. RECOMMENDATIONS: 1, Aspirin 81 mg daily for life. Xarelto 15 mg once daily to start tomorrow evening. 2. Echocardiogram the next morning. 3. Endocarditis prophylaxis for life after transcatheter aortic valve replacement. 4. Follow up in Cardiology Clinic in 1 month with echocardiogram. Mike Cisneros MD Study Details Nonrheumatic aortic valve stenosis [I35.0] us Promise Pelaez CNP CV CARDIAC CATH PROCEDURES Fi nal Result * (ABNORMAL) APTT (05/15/2025 11:34 AM EDT) aPTT 73.2(H) 25.0 - 35.0 Seconds 05/15/2025 12:00 PM EDT [facility] ([facility]) Comment:Clinical significanc e of the APTT is questionable in the presence of heparin. Blood Venous blood specimen / Unknown Venipuncture / Unknown 05/15/2025 11:34 AM EDT 05/15/2025 11:36 AM EDT us Julio Cesar Medina MD LAB BLOOD ORDERABLES Final Resul t Performing Organization Address City/[facility]/ZIP Co de Phone Number [facility]) [address] [place] [phone] * (ABNORMAL) POCT glucose meter (05/15/2025 11:23 AM EDT) Glucose POC 288(H) 70 - 105 mg/dL 05/15/2025 11:37 AM EDT [facility] ([facility]) Comment:[email or web address] Blood Capillary blood specimen / Unknown 05/15/2025 11:23 AM EDT 05/15/2025 11:37 AM EDT Narrative [facility] ([facility]) - 05/15/2025 11:37 AM EDT Waived Testing in the ED is performed under the ED CLIA certificate #[id number]. us Julio Cesar Medina MD LAB BLOOD ORDERABLES Final Resul t [facility]) [address] [place] [phone] * XR transfer of outside films (05/15/2025 9:19 AM EDT) Narrative IMAGING - 05/15/2025 9:19 AM EDT This order has been auto-finalized and does not contain a result. us Kodak Perez MD IMG XR PROCEDURES Final Result Performing Organization Address City/[facility]/ZIP Co de Phone Number IMAGING * CT transfer of outside films (05/15/2025 9:18 AM EDT) Narrative IMAGING - 05/15/2025 9:18 AM EDT This order has been auto-finalized and does not contain a result. us Kodak Perez MD IMG CT PROCEDURES Final Result Performing Organization Address [facility] Co de Phone Number IMAGING * (ABNORMAL) POCT glucose meter (05/15/2025 7:55 AM EDT) Glucose POC 351(H) 70 - 105 mg/dL 05/15/2025 8:07 AM EDT [facility] ([facility]) Comment:[email or web address] Blood Capillary blood specimen / Unknown 05/15/2025 7:55 AM EDT 05/15/2025 8:06 AM EDT Narrative [facility] ([facility]) - 05/15/2025 8:07 AM EDT Waived Testing in the ED is performed under the ED CLIA certificate #[id number]. Julio Cesar Medina MD LAB BLOOD ORDERABLES Final Resul t Performing Organization Address [facility] Co de Phone Number [facility] ([facility]) [address] [place] [address] * (ABNORMAL) APTT (05/15/2025 3:39 AM EDT) aPTT 51.8(H) 25.0 - 35.0 Seconds 05/15/2025 4:32 AM EDT [facility] ([facility]) Comment:Clinical significanc e of the APTT is questionable in the presence of heparin. Blood Venous blood specimen / Unknown Venipuncture / Unknown 05/15/2025 3:39 AM EDT 05/15/2025 3:54 AM EDT us Julio Cesar Medina MD LAB BLOOD ORDERABLES Final Resul t [facility] ([facility]) [address] [place] [address] * (ABNORMAL) CBC (05/15/2025 3:39 AM EDT) Auto WBC 12.04(H) 4.00 - 10.60 10*3/uL 05/15/2025 4:20 AM EDT [facility] ([facility]) RBC 4.08(L) 4.20 - 5.70 10*6/uL 05/15/2025 4:20 AM EDT [facility] ([facility]) Hemoglobin 10.3(L) 13.0 - 17.0 g/dL 05/15/2025 4:20 AM EDT [facility] ([facility]) Hematocrit 33.6(L) 39.0 - 50.0 % 05/15/2025 4:20 AM EDT [facility] ([facility]) MCV 82.4 82.0 - 98.0 fL 05/15/2025 4:20 AM EDT [facility] ([facility]) MCH 25.2(L) 27.0 - 33.0 pg 05/15/2025 4:20 AM EDT [facility] ([facility]) MCHC 30.7(L) 32.0 - 35.0 g/dL 05/15/2025 4:20 AM EDT [facility] ([facility]) RDW 19.0(H) 11.5 - 15.0 % 05/15/2025 4:20 AM EDT [facility] ([facility]) Platelets 306 150 - 400 10*3/uL 05/15/2025 4:20 AM EDT [facility] ([facility]) Blood Venous blood specimen / Unknown Venipuncture / Unknown 05/15/2025 3:39 AM EDT 05/15/2025 4:05 AM EDT us Julio Cesar Medina MD LAB BLOOD ORDERABLES Final Resul t [facility] ([facility]) [address] [place] [address] * (ABNORMAL) Basic metabolic panel (05/15/2025 3:39 AM EDT) Sodium 137 136 - 145 mmol/L 05/15/2025 4:28 AM EDT [facility] ([facility]) Potassium 4.5 3.5 - 5.1 mmol/L 05/15/2025 4:28 AM EDT [facility] ([facility]) Chloride 99 98 - 107 mmol/L 05/15/2025 4:28 AM EDT [facility] ([facility]) CO2 27 21 - 31 mmol/L 05/15/2025 4:28 AM EDT [facility] ([facility]) BUN 34(H) 7 - 25 mg/dL 05/15/2025 4:28 AM EDT [facility] ([facility]) Creatinine 1.61(H) 0.70 - 1.30 mg/dL 05/15/2025 4:28 AM EDT [facility] ([facility]) Glucose 255(H) 70 - 100 mg/dL 05/15/2025 4:28 AM EDT [facility] ([facility]) Calcium 8.9 8.6 - 10.3 mg/dL 05/15/2025 4:28 AM EDT [facility] ([facility]) Anion Gap 16 7 - 20 mmol/L 05/15/2025 4:28 AM EDT [facility] ([facility]) eGFR 41.4(L) >60.0 mL/min/1. 73m*2 05/15/2025 4:28 AM EDT [facility] ([facility]) Comment:The [facility] s estimated glomerular filtration rate (eGFR) will no longer include consideration of race in its calculation. The [employer] s eGFR Task Force developed new recommendations for the estimation of the glomerular filtration rate in the [place] They recommend immediate implementation of the new equation refit without the race variable in all laboratories because the calculation does not include race. In addition to not including race in the calculation and reporting, it included diversity in its development, and has acceptable performance characteristics and potential consequences that do not disproportionately affect any one group of individuals. BUN/Creatinine Ratio 21.1 07/0 11/2024 4:28 AM EDT [facility] ([facility]) Blood Venous blood specimen / Unknown Venipuncture / Unknown 05/15/2025 3:39 AM EDT 05/15/2025 4:04 AM EDT us Julio Cesar Medina MD LAB BLOOD ORDERABLES Final Resul t Performing Organization Address City/[facility] Co de Phone Number [facility] ([facility]) [address] [place] [address] * Red Top (05/14/2025 10:23 PM EDT) Extra Tube Hold for add-ons. 05/15/2025 12:01 AM EDT [facility] ([facility]) Comment:Auto resulted. Blood Venous blood specimen / Unknown 05/14/2025 10:23 PM EDT 05/14/2025 10:56 PM EDT us Julio Cesar Medina MD LAB BLOOD ORDERABLES Final Resul t Performing Organization Address [facility] Co de Phone Number [facility]) [address] [place] [address] * (ABNORMAL) APTT (05/14/2025 10:23 PM EDT) aPTT 57.1(H) 25.0 - 35.0 Seconds 05/14/2025 11:28 PM EDT [facility] ([facility]) Comment:Clinical significanc e of the APTT is questionable in the presence of heparin. Blood Venous blood specimen / Unknown Venipuncture / Unknown 05/14/2025 10:23 PM EDT 05/14/2025 10:56 PM EDT us Julio Cesar Medina MD LAB BLOOD ORDERABLES Final Resul t Performing Organization Address City/[facility]/ZIP Co de Phone Number [facility]) [address] [place] [address] * ECG 12 lead (05/14/2025 8:36 PM EDT) Ventricular Rate 67 BPM GE MUSE QRS DURATION 102 ms GE MUSE QT Interval 414 ms GE MUSE QTC CALCULATION(BAZE TT) 437 ms GE MUSE R-[place] -30 degrees GE MUSE T Wave [place] 28 degrees GE MUSE 05/14/2025 8:32 PM EDT 05/15/2025 9:35 PM EDT Impressions GE MUSE - 05/15/2025 9:35 PM EDT Atrial fibrillation Left axis deviation Minimal voltage criteria for LVH, may be normal variant ( Gregorio product ) Anterior infarct , age undetermined Abnormal ECG No previous ECGs available Confirmed by Kasandra DELAROSA, GERI Penn (56) on 05/15/2025 9:35:53 PM Narrative Procedure Note Geri Delarosa MD - 05/15/2025 IMPRESSION: Atrial fibrillation Left axis deviation Minimal voltage criteria for LVH, may be normal variant ( Gregorio product ) Anterior infarct , age undetermined Abnormal ECG No previous ECGs available Confirmed by Kasandra DELAROSA SAMER J. (56) on 05/15/2025 9:35:53 PM us Promise Pelaez CNP ECG ORDERABLES Final Result GE MUSE * (ABNORMAL) POCT glucose meter (05/14/2025 8:19 PM EDT) [facility] Glucose POC 303(H) 70 - 105 mg/dL 05/14/2025 8:32 PM EDT [facility] ([facility]) Comment:[email or web address] Blood Capillary blood specimen / Unknown 05/14/2025 8:19 PM EDT 05/14/2025 8:32 PM EDT Narrative [facility] ([facility]) - 05/14/2025 8:32 PM EDT Waived Testing in the ED is performed under the ED CLIA certificate #[id number]. us Julio Cesar Medina MD LAB BLOOD ORDERABLES Final Resul t [facility] ([facility]) [address] [place] [address] * Vascular US carotid artery duplex bilateral (05/14/2025 5:23 PM EDT) Anatomical Region Laterality Modality Neck Ultrasound 05/14/2025 5:22 PM EDT Impressions 05/15/2025 7:53 AM EDT Right: Homogeneous smooth plaque with no significant ICA spectral Doppler or color flow disturbances: ICA 80/3 cm/sec; consistent with <50% diameter reduction. Antegrade vertebral artery flow. Left: Homogeneous smooth plaque with no significant ICA spectral Doppler or color flow disturbances: ICA 80/23 cm/sec; consistent with <50% diameter reduction. Antegrade vertebral artery flow. Right: Homogeneous smooth plaque with no significant ICA spectral Doppler or color flow disturbances: ICA 80/3 cm/sec; consistent with <50% diameter reduction. Antegrade vertebral artery flow. Left: Homogeneous smooth plaque with no significant ICA spectral Doppler or color flow disturbances: ICA 80/23 cm/sec; consistent with <50% diameter reduction. Antegrade vertebral artery flow. Conclusions: Antegrade flow of bilateral vertebral arteries. High resistance to flow in both vertebral arteries. <50% stenosis in right internal carotid artery. <50% stenosis in left internal carotid artery. Narrative 05/15/2025 7:53 AM EDT Procedure: The carotid arteries, including common carotid, internal and external carotid artery were evaluated bilaterally. This was done using real-time imaging with velocity measurement, color Doppler, and spectral analysis. The vertebral arteries were evaluated bilaterally using color ultrasound and velocity measurement. Procedure: The carotid arteries, including common carotid, internal and external carotid artery were evaluated bilaterally. This was done using real-time imaging with velocity measurement, color Doppler, and spectral analysis. The vertebral arteries were evaluated bilaterally using color ultrasound and velocity measurement. Procedure Note Tom Gonzalez MD - 05/15/2025 Procedure: The carotid arteries, including common carotid, internal andexternal carotid artery were evaluated bilaterally. This was done usingreal-time imaging with velocity measurement, color Doppler, and spectralanalysis. The vertebral arteries were evaluated bilaterally using colorultrasound and velocity measurement. Procedure: The carotid arteries, including common carotid, internal andexternal carotid artery were evaluated bilaterally. This was done usingreal-time imaging with velocity measurement, color Doppler, and spectralanalysis. The vertebral arteries were evaluated bilaterally using colorultrasound and velocity measurement. IMPRESSION: Right: Homogeneous smooth plaque with no significant ICA spectral Doppleror color flow disturbances: ICA 80/3 cm/sec; consistent with <50% diameterreduction. Antegrade vertebral artery flow. Left: Homogeneous smooth plaque with no significant ICA spectral Doppleror color flow disturbances: ICA 80/23 cm/sec; consistent with <50%diameter reduction. Antegrade vertebral artery flow. Right: Homogeneous smooth plaque with no significant ICA spectral Doppleror color flow disturbances: ICA 80/3 cm/sec; consistent with <50% diameterreduction. Antegrade vertebral artery flow. Left: Homogeneous smooth plaque with no significant ICA spectral Doppleror color flow disturbances: ICA 80/23 cm/sec; consistent with <50%diameter reduction. Antegrade vertebral artery flow. Conclusions: Antegrade flow of bilateral vertebral arteries. Highresistance to flow in both vertebral arteries. <50% stenosis in right internal carotid artery. <50% stenosis in left internal carotid artery. Promise Pelaez CNP IMG CV VASCULAR PROCEDURES Fi nal Result * (ABNORMAL) POCT glucose meter (05/14/2025 4:56 PM EDT) [facility] Glucose POC 254(H) 70 - 105 mg/dL 05/14/2025 5:07 PM EDT [facility] ([facility]) Comment:[email or web address] Blood Capillary blood specimen / Unknown 05/14/2025 4:56 PM EDT 05/14/2025 5:06 PM EDT Narrative [facility] ([facility]) - 05/14/2025 5:07 PM EDT Waived Testing in the ED is performed under the ED CLIA certificate #[id number]. us Julio Cesar Medina MD LAB BLOOD ORDERABLES Final Resul t [facility] ([facility]) [address] [place] [address] * Platelet count (05/14/2025 3:28 PM EDT) Platelets 297 150 - 400 10*3/uL 05/14/2025 3:45 PM EDT [facility] ([facility]) Blood Venous blood specimen / Unknown Venipuncture / Unknown 05/14/2025 3:28 PM EDT 05/14/2025 3:37 PM EDT [facility] Final Resul t Performing Organization Address City/[facility] Co de Phone Number [facility]) [address] [place] [address] * aPTT - baseline (05/14/2025 3:28 PM EDT) aPTT 33.6 25.0 - 35.0 Seconds 05/14/2025 3:57 PM EDT [facility] ([facility]) Comment:Clinical significanc e of the APTT is questionable in the presence of heparin. Blood Venous blood specimen / Unknown Venipuncture / Unknown 05/14/2025 3:28 PM EDT 05/14/2025 3:32 PM EDT [facility] Final Resul t Performing Organization Address [facility] Co de Phone Number [facility]) [address] [place] [address] * (ABNORMAL) POCT glucose meter (05/14/2025 12:13 PM EDT) Glucose POC 225(H) 70 - 105 mg/dL 05/14/2025 12:26 PM EDT [facility]) Comment:[email or web address] Blood Capillary blood specimen / Unknown 05/14/2025 12:13 PM EDT 05/14/2025 12:26 PM EDT Narrative [facility]) - 05/14/2025 12:26 PM EDT Waived Testing in the ED is performed under the ED CLIA certificate #[id number]. us Julio Cesar Medina MD LAB BLOOD ORDERABLES Final Resul t Performing Organization Address City/[facility]/ZIP Co de Phone Number [facility] ([facility]) [address] [place] [address] * (ABNORMAL) POCT glucose meter (05/14/2025 7:05 AM EDT) Glucose POC 209(H) 70 - 105 mg/dL 05/14/2025 7:19 AM EDT [facility] ([facility]) Comment:ooperac Blood Capillary blood specimen / Unknown 05/14/2025 7:05 AM EDT 05/14/2025 7:18 AM EDT Narrative [facility] ([facility]) - 05/14/2025 7:19 AM EDT Waived Testing in the ED is performed under the ED CLIA certificate #[id number]. us Julio Cesar Medina MD LAB BLOOD ORDERABLES Final Resul t Performing Organization Address [facility] Co de Phone Number [facility] ([facility]) [address] [place] [phone] * Lavender Top (05/14/2025 3:38 AM EDT) Pathologist [facility] Extra Tube Hold for add-ons. 05/14/2025 6:01 AM EDT [facility] ([facility]) Comment:Auto resulted. Blood Venous blood specimen / Unknown Venipuncture / Unknown 05/14/2025 3:38 AM EDT 05/14/2025 4:06 AM EDT us Julio Cesar Medina MD LAB BLOOD ORDERABLES Final Resul t Performing Organization Address [facility]/ZIP Co de Phone Number [facility] ([facility]) [address] [place] [address] * (ABNORMAL) Basic metabolic panel (05/14/2025 3:38 AM EDT) Sodium 138 136 - 145 mmol/L 05/14/2025 4:26 AM [facility] ([facility]) Potassium 3.8 3.5 - 5.1 mmol/L 05/14/2025 4:26 AM [facility] ([facility]) Chloride 100 98 - 107 mmol/L 05/14/2025 4:26 AM [facility] ([facility]) CO2 29 21 - 31 mmol/L 05/14/2025 4:26 AM [facility] ([facility]) BUN 34(H) 7 - 25 mg/dL 05/14/2025 4:26 AM [facility] ([facility]) Creatinine 1.74(H) 0.70 - 1.30 mg/dL 05/14/2025 4:26 AM [facility] ([facility]) Glucose 186(H) 70 - 100 mg/dL 05/14/2025 4:26 AM [facility] ([facility]) Calcium 8.4(L) 8.6 - 10.3 mg/dL 05/14/2025 4:26 AM [facility] ([facility]) Anion Gap 13 7 - 20 mmol/L 05/14/2025 4:26 AM [facility] ([facility]) eGFR 37.7(L) >60.0 mL/min/1. 73m*2 05/14/2025 4:26 AM [facility] ([facility]) Comment:The [facility] s estimated glomerular filtration rate (eGFR) will no longer include consideration of race in its calculation. The [employer] s eGFR Task Force developed new recommendations for the estimation of the glomerular filtration rate in the [place] They recommend immediate implementation of the new equation refit without the race variable in all laboratories because the calculation does not include race. In addition to not including race in the calculation and reporting, it included diversity in its development, and has acceptable performance characteristics and potential consequences that do not disproportionately affect any one group of individuals. BUN/Creatinine Ratio 19.5 04/17 4:26 AM [facility] ([facility]) Blood Venous blood specimen / Unknown Venipuncture / Unknown 05/14/2025 3:38 AM EDT 05/14/2025 3:58 AM EDT us Julio Cesar Medina MD LAB BLOOD ORDERABLES Final Resul t Performing Organization Address City/[facility]/ZIP Co de Phone Number [facility] ([facility]) [address] [place] [address] * (ABNORMAL) POCT glucose meter (05/13/2025 8:55 PM EDT) Glucose POC 219(H) 70 - 105 mg/dL 05/13/2025 9:06 PM EDT [facility] ([facility]) Comment:[email or web address] Blood Capillary blood specimen / Unknown 05/13/2025 8:55 PM EDT 05/13/2025 9:06 PM EDT Narrative [facility] ([facility]) - 05/13/2025 9:06 PM EDT Waived Testing in the ED is performed under the ED CLIA certificate #[id number]. us Julio Cesar Medina MD LAB BLOOD ORDERABLES Final Resul t Performing Organization Address [facility] Co de Phone Number [facility] ([address] [address] * (ABNORMAL) POCT glucose meter (05/13/2025 4:44 PM EDT) Glucose POC 277(H) 70 - 105 mg/dL 05/13/2025 4:55 PM EDT [facility] ([facility]) Comment:[email or web address] Blood Capillary blood specimen / Unknown 05/13/2025 4:44 PM EDT 05/13/2025 4:55 PM EDT Narrative [facility] ([facility]) - 05/13/2025 4:55 PM EDT Waived Testing in the ED is performed under the ED CLIA certificate #[id number]. us Julio Cesar Medina MD LAB BLOOD ORDERABLES Final Resul t [facility] ([facility]) [address] [place] [address] * (ABNORMAL) POCT glucose meter (05/13/2025 11:37 AM EDT) Glucose POC 274(H) 70 - 105 mg/dL 05/13/2025 12:05 PM EDT [facility] ([facility]) Comment:[email or web address] Blood Capillary blood specimen / Unknown 05/13/2025 11:37 AM EDT 05/13/2025 12:05 PM EDT Narrative [facility] ([facility]) - 05/13/2025 12:05 PM EDT Waived Testing in the ED is performed under the ED CLIA certificate #[id number]. us Julio Cesar Medina MD LAB BLOOD ORDERABLES Final Resul t [facility]) [address] [place] [phone] * (ABNORMAL) POCT glucose meter (05/13/2025 7:04 AM EDT) Glucose POC 222(H) 70 - 105 mg/dL 05/13/2025 7:16 AM EDT [facility] ([facility]) Comment:[email or web address] Blood Capillary blood specimen / Unknown 05/13/2025 7:04 AM EDT 05/13/2025 7:16 AM EDT Narrative [facility]) - 05/13/2025 7:16 AM EDT Waived Testing in the ED is performed under the ED CLIA certificate #[id number]. us Julio Cesar Medina MD LAB BLOOD ORDERABLES Final Resul t [facility]) [address] [place] [address] * (ABNORMAL) CBC (05/13/2025 3:43 AM EDT) Auto WBC 10.18 4.00 - 10.60 10*3/uL 05/13/2025 4:12 AM EDT [facility] ([facility]) RBC 3.80(L) 4.20 - 5.70 10*6/uL 05/13/2025 4:12 AM EDT [facility] ([facility]) Hemoglobin 9.8(L) 13.0 - 17.0 g/dL 05/13/2025 4:12 AM EDT [facility] ([facility]) Hematocrit 31.3(L) 39.0 - 50.0 % 05/13/2025 4:12 AM EDT [facility] ([facility]) MCV 82.4 82.0 - 98.0 fL 05/13/2025 4:12 AM EDT [facility] ([facility]) MCH 25.8(L) 27.0 - 33.0 pg 05/13/2025 4:12 AM EDT [facility] ([facility]) MCHC 31.3(L) 32.0 - 35.0 g/dL 05/13/2025 4:12 AM EDT [facility] ([facility]) RDW 18.9(H) 11.5 - 15.0 % 05/13/2025 4:12 AM EDT [facility] ([facility]) Platelets 287 150 - 400 10*3/uL 05/13/2025 4:12 AM EDT [facility] ([facility]) Blood Venous blood specimen / Unknown Venipuncture / Unknown 05/13/2025 3:43 AM EDT 05/13/2025 4:01 AM EDT us Julio Cesar Medina MD LAB BLOOD ORDERABLES Final Resul t [facility] ([facility]) [address] [place] [address] * (ABNORMAL) Basic metabolic panel (05/13/2025 3:43 AM EDT) Sodium 138 136 - 145 mmol/L 05/13/2025 4:23 AM EDT [facility] ([facility]) Potassium 3.5 3.5 - 5.1 mmol/L 05/13/2025 4:23 AM EDT [facility] ([facility]) Chloride 99 98 - 107 mmol/L 05/13/2025 4:23 AM EDT [facility] ([facility]) CO2 29 21 - 31 mmol/L 05/13/2025 4:23 AM EDT [facility] ([facility]) BUN 32(H) 7 - 25 mg/dL 05/13/2025 4:23 AM EDT [facility] ([facility]) Creatinine 1.65(H) 0.70 - 1.30 mg/dL 05/13/2025 4:23 AM EDT [facility] ([facility]) Glucose 206(H) 70 - 100 mg/dL 05/13/2025 4:23 AM T [facility] ([facility]) Calcium 8.5(L) 8.6 - 10.3 mg/dL 05/13/2025 4:23 AM T [facility] ([facility]) Anion Gap 14 7 - 20 mmol/L 05/13/2025 4:23 AM T [facility] ([facility]) eGFR 40.2(L) >60.0 mL/min/1. 73m*2 05/13/2025 4:23 AM T [facility] ([facility]) Comment:The [facility] s estimated glomerular filtration rate (eGFR) will no longer include consideration of race in its calculation. The [employer] s eGFR Task Force developed new recommendations for the estimation of the glomerular filtration rate in the [place] They recommend immediate implementation of the new equation refit without the race variable in all laboratories because the calculation does not include race. In addition to not including race in the calculation and reporting, it included diversity in its development, and has acceptable performance characteristics and potential consequences that do not disproportionately affect any one group of individuals. BUN/Creatinine Ratio 19.4 04/16 4:23 AM T [facility] ([facility]) Blood Venous blood specimen / Unknown Venipuncture / Unknown 05/13/2025 3:43 AM EDT 05/13/2025 4:01 AM EDT us Julio Cesar Medina MD LAB BLOOD ORDERABLES Final Resul t [facility] ([facility]) [address] [place] [address] * (ABNORMAL) POCT glucose meter (05/12/2025 8:04 PM EDT) Glucose POC 275(H) 70 - 105 mg/dL 05/12/2025 8:16 PM EDT [facility] ([facility]) Comment:[email or web address] Blood Capillary blood specimen / Unknown 05/12/2025 8:04 PM EDT 05/12/2025 8:16 PM EDT Narrative [facility] ([facility]) - 05/12/2025 8:16 PM EDT Waived Testing in the ED is performed under the ED CLIA certificate #[id number]. us Julio Cesar Medina MD LAB BLOOD ORDERABLES Final Resul t Performing Organization Address [facility]/ZIP Co de Phone Number [facility]) [address] [place] [address] * (ABNORMAL) POCT glucose meter (05/12/2025 4:15 PM EDT) Glucose POC 285(H) 70 - 105 mg/dL 05/12/2025 4:26 PM EDT [facility] ([facility]) Comment:[email or web address] Blood Capillary blood specimen / Unknown 05/12/2025 4:15 PM EDT 05/12/2025 4:26 PM EDT Narrative [facility] ([facility]) - 05/12/2025 4:26 PM EDT Waived Testing in the ED is performed under the ED CLIA certificate #[id number]. us Julio Cesar Medina MD LAB BLOOD ORDERABLES Final Resul t [facility] ([facility]) [address] [place] [address] * (ABNORMAL) POCT glucose meter (05/12/2025 11:23 AM EDT) Glucose POC 332(H) 70 - 105 mg/dL 05/12/2025 11:34 AM EDT [facility] ([facility]) Comment:[email or web address] Blood Capillary blood specimen / Unknown 05/12/2025 11:23 AM EDT 05/12/2025 11:34 AM EDT Narrative [facility] ([facility]) - 05/12/2025 11:34 AM EDT Waived Testing in the ED is performed under the ED CLIA certificate #[id number]. us Julio Cesar Medina MD LAB BLOOD ORDERABLES Final Resul t Performing Organization Address City/[facility]/ZIP Co de Phone Number [facility]) [address] [place] [phone] * Anti-Xa (Heparin Level) (05/12/2025 9:26 AM EDT) Anti-Xa (Heparin) 0.32 0.3 - 0.7 IU/mL 05/12/2025 10:52 AM EDT [facility] ([facility]) Comment:Rivaroxaban and Apix aban will interfere with the anti Xa assay used to monitor UFH and LMWH. Blood Venous blood specimen / Unknown Venipuncture / Unknown 05/12/2025 9:26 AM EDT 05/12/2025 10:21 AM EDT us Julio Cesar Medina MD LAB BLOOD ORDERABLES Final Resul t Performing Organization Address City/[facility]/ZIP Co de Phone Number [facility] ([facility]) [address] [place] [phone] * (ABNORMAL) POCT glucose meter (05/12/2025 7:07 AM EDT) Glucose POC 214(H) 70 - 105 mg/dL 05/12/2025 7:19 AM EDT [facility] ([facility]) Comment:[email or web address] Blood Capillary blood specimen / Unknown 05/12/2025 7:07 AM EDT 05/12/2025 7:19 AM EDT Narrative [facility] ([facility]) - 05/12/2025 7:19 AM EDT Waived Testing in the ED is performed under the ED CLIA certificate #[id number]. Julio Cesar Medina MD LAB BLOOD ORDERABLES Final Resul t Performing Organization Address City/[facility]/ZIP Co de Phone Number [facility] ([facility]) [address] [place] [address] * Lavender Top (05/12/2025 3:46 AM EDT) Extra Tube Hold for add-ons. 05/12/2025 6:01 AM EDT [facility] ([facility]) Comment:Auto resulted. Blood Venous blood specimen / Unknown Venipuncture / Unknown 05/12/2025 3:46 AM EDT 05/12/2025 4:06 AM EDT Julio Cesar Medina MD LAB BLOOD ORDERABLES Final Resul t Performing Organization Address [facility] de Phone Number [facility] ([facility]) [address] [place] [address] * Anti-Xa (Heparin Level) (05/12/2025 3:46 AM EDT) Anti-Xa (Heparin) 0.42 0.3 - 0.7 IU/mL 05/12/2025 4:32 AM EDT [facility]) Comment:Rivaroxaban and Apix aban will interfere with the anti Xa assay used to monitor UFH and LMWH. Blood Venous blood specimen / Unknown Venipuncture / Unknown 05/12/2025 3:46 AM EDT 05/12/2025 4:02 AM EDT us Julio Cesar Medina MD LAB BLOOD ORDERABLES Final Resul t Performing Organization Address City/[facility]/ZIP Co de Phone Number [facility] ([facility]) [address] [place] [address] * (ABNORMAL) Basic metabolic panel (05/12/2025 3:46 AM EDT) Sodium 138 136 - 145 mmol/L 05/12/2025 4:37 AM [facility] ([facility]) Potassium 3.5 3.5 - 5.1 mmol/L 05/12/2025 4:37 AM [facility] ([facility]) Chloride 99 98 - 107 mmol/L 05/12/2025 4:37 AM [facility] ([facility]) CO2 29 21 - 31 mmol/L 05/12/2025 4:37 AM [facility] ([facility]) BUN 36(H) 7 - 25 mg/dL 05/12/2025 4:37 AM [facility] ([facility]) Creatinine 1.63(H) 0.70 - 1.30 mg/dL 05/12/2025 4:37 AM [facility] ([facility]) Glucose 191(H) 70 - 100 mg/dL 05/12/2025 4:37 AM [facility] ([facility]) Calcium 8.5(L) 8.6 - 10.3 mg/dL 05/12/2025 4:37 AM [facility] ([facility]) Anion Gap 14 7 - 20 mmol/L 05/12/2025 4:37 AM [facility] ([facility]) eGFR 40.8(L) >60.0 mL/min/1. 73m*2 05/12/2025 4:37 AM [facility] ([facility]) Comment:The [facility] s estimated glomerular filtration rate (eGFR) will no longer include consideration of race in its calculation. The [employer] s eGFR Task Force developed new recommendations for the estimation of the glomerular filtration rate in the [place] They recommend immediate implementation of the new equation refit without the race variable in all laboratories because the calculation does not include race. In addition to not including race in the calculation and reporting, it included diversity in its development, and has acceptable performance characteristics and potential consequences that do not disproportionately affect any one group of individuals. BUN/Creatinine Ratio 22.1 04/16 4:37 AM [facility] ([facility]) Blood Venous blood specimen / Unknown Venipuncture / Unknown 05/12/2025 3:46 AM EDT 05/12/2025 4:06 AM EDT us Julio Cesar Medina MD LAB BLOOD ORDERABLES Final Resul t Performing Organization Address [facility] Co de Phone Number [facility]) [address] [place] [address] * (ABNORMAL) POCT glucose meter (05/11/2025 9:02 PM EDT) Glucose POC 306(H) 70 - 105 mg/dL 05/11/2025 9:13 PM EDT [facility] ([facility]) Comment:[email or web address] Blood Capillary blood specimen / Unknown 05/11/2025 9:02 PM EDT 05/11/2025 9:13 PM EDT Narrative [facility] ([facility]) - 05/11/2025 9:13 PM EDT Waived Testing in the ED is performed under the ED CLIA certificate #[id number]. us Julio Cesar Medina MD LAB BLOOD ORDERABLES Final Resul t Performing Organization Address [facility] de Phone Number [facility] ([facility]) [address] [place] [phone] * (ABNORMAL) Anti-Xa (Heparin Level) (05/11/2025 8:42 PM EDT) Anti-Xa (Heparin) 0.27(L) 0.3 - 0.7 IU/mL 05/11/2025 10:07 PM EDT [facility] ([facility]) Comment:Rivaroxaban and Apix aban will interfere with the anti Xa assay used to monitor UFH and LMWH. Blood Venous blood specimen / Unknown Venipuncture / Unknown 05/11/2025 8:42 PM EDT 05/11/2025 9:25 PM EDT us Julio Cesar Medina MD LAB BLOOD ORDERABLES Final Resul t Performing Organization Address City/[facility]/ZIP Co de Phone Number [facility] ([facility]) [address] [place], [place] [phone] * (ABNORMAL) POCT glucose meter (05/11/2025 4:42 PM EDT) Glucose POC 348(H) 70 - 105 mg/dL 05/11/2025 4:54 PM EDT [facility] ([facility]) Comment:[email or web address] Blood Capillary blood specimen / Unknown 05/11/2025 4:42 PM EDT 05/11/2025 4:54 PM EDT Narrative [facility] ([facility]) - 05/11/2025 4:54 PM EDT Waived Testing in the ED is performed under the ED CLIA certificate #[id number]. us Julio Cesar Medina MD LAB BLOOD ORDERABLES Final Resul t Performing Organization Address [facility] Co de Phone Number [facility] ([facility]) [address] [place] [address] * CTA Abdomen Pelvis W IV Contrast (05/11/2025 2:23 PM EDT) Anatomical Region Laterality Modality Body, Pelvis, Abdomen Computed T omography 05/14/2025 5:55 PM EDT Impressions 05/14/2025 6:10 PM EDT Evidence of prior cholecystectomy. Prostate metallic seeds in place. Calcified granulomas in the spleen. 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 Electronically signed: Yenni Stafford MD. Narrative 05/14/2025 6:10 PM EDT CTA ABDOMEN PELVIS W IV CONTRAST 05/11/2025 1:46 PM CLINICAL INDICATIONS: Aortic valve stenosis. Pre-T aVR evaluation. PROTOCOL: CTA abdomen and pelvis. CONTRAST: 100 mL Omnipaque 350 TECHNIQUE: Multidetector CT angiography axial slices of the abdomen and pelvis were obtained with IV contrast. Multiplanar reformats, MIP, and volume rendered 3-D images were generated on a separate workstation and reviewed to further define anatomy and possible pathology. All CT scans at this facility use dose modulation, iterative reconstruction, and/or weight based dosing when appropriate to reduce radiation dose to as low as reasonably achievable. COMPARISON: None. FINDINGS: Lower Chest: Please refer to chest CT report from the same day for full details. ABDOMEN: Liver: Visualized part of the liver reveals normal enhancement and no definite abnormality. Bile Ducts: Normal caliber. Gallbladder: Absent gallbladder with metallic clips seen at the gallbladder fossa from prior cholecystectomy. Pancreas: Atrophic and fatty infiltrated pancreas with no focal lesions Spleen: A few calcified granulomas in visualized part of the spleen. Adrenals: Within normal limits. Kidneys: Markedly atrophic and nonfunctioning left kidney with cyst at the inferior portion and stent in the proximal left renal artery which appears occluded in visualized part of the right kidney revealed normal nephrogram and satisfactory flow in the right renal artery Pelvis: Reproductive Organs: Prostate metallic seeds in place. Ureters: Within normal limits. Bladder: Contrast filling the urinary bladder. Bowel: Normal caliber. Mesenteric Lymph Nodes: No enlarged mesenteric lymph nodes. Peritoneum: No ascites or free air, no fluid collection. Vessels: Atherosclerotic changes with significant vascular calcification seen in the aorta and branches.. Retroperitoneum: Within normal limits. Abdominal Wall: Within normal limits. Bones: Lower lumbar spondylosis mainly at L5-S1 level with disc space narrowing and vacuum phenomenon as well as bony spurring. Facet joint disease at L4-5 was mild anterolisthesis. Procedure Note Yenni Stafford MD - 05/14/2025 CTA ABDOMEN PELVIS W IV CONTRAST 05/11/2025 1:46 PM CLINICAL INDICATIONS: Aortic valve stenosis. Pre-T aVR evaluation. PROTOCOL: CTA abdomen and pelvis. CONTRAST: 100 mL Omnipaque 350 TECHNIQUE: Multidetector CT angiography axial slices of the abdomen andpelvis were obtained with IV contrast. Multiplanar reformats, MIP, and volumerendered 3-D images were generated on a separate workstation and reviewed tofurther define anatomy and possible pathology. All CT scans at this facility use dose modulation, iterativereconstruction, and/or weight based dosing when appropriate to reduce radiation dose to aslow as reasonably achievable. COMPARISON: None. FINDINGS: Lower Chest: Please refer to chest CT report from the same day for fulldetails. ABDOMEN: Liver: Visualized part of the liver reveals normal enhancement and nodefinite abnormality. Bile Ducts: Normal caliber. Gallbladder: Absent gallbladder with metallic clips seen at thegallbladder fossa from prior cholecystectomy. Pancreas: Atrophic and fatty infiltrated pancreas with no focal lesions Spleen: A few calcified granulomas in visualized part of the spleen. Adrenals: Within normal limits. Kidneys: Markedly atrophic and nonfunctioning left kidney with cyst atthe inferior portion and stent in the proximal left renal artery whichappears occluded in visualized part of the right kidney revealed normal nephrogramand satisfactory flow in the right renal artery Pelvis: Reproductive Organs: Prostate metallic seeds in place. Ureters: Within normal limits. Bladder: Contrast filling the urinary bladder. Bowel: Normal caliber. Mesenteric Lymph Nodes: No enlarged mesenteric lymph nodes. Peritoneum: No ascites or free air, no fluid collection. Vessels: Atherosclerotic changes with significant vascular calcificationseen in the aorta and branches.. Retroperitoneum: Within normal limits. Abdominal Wall: Within normal limits. Bones: Lower lumbar spondylosis mainly at L5-S1 level with disc spacenarrowing and vacuum phenomenon as well as bony spurring. Facet joint disease atL4-5 was mild anterolisthesis. IMPRESSION: Evidence of prior cholecystectomy. Prostate metallic seeds in place. Calcified granulomas in the spleen. Atrophic nonfunctional left kidneywith stent in the proximal left renal artery and occluded vessel seen. Electronically signed: Yenni Stafford MD. Promise Pelaez [facility] CT PROCEDURES Final Resul t * CTA Chest W IV Contrast (05/11/2025 2:23 PM EDT) Anatomical Region Laterality Modality Body, Chest Computed Tomogra phy 05/14/2025 5:26 PM EDT Impressions 05/14/2025 5:55 PM EDT Moderate to large right and small left pleural effusions with adjacent compressive atelectasis. Small calcified granuloma in the lung bases and calcified left hilar and mediastinal granulomatous lymph nodes with borderline lymph nodes in the mediastinum. Mild cardiomegaly and moderate pericardial effusion. Mitral valve annular calcification. Grade 3 aortic cusp calcification and total calcium scoring of 4210. T aVR measurements as listed above and suggested valve diameter of 26 mm Electronically signed: Yenni Stafford MD. Narrative 05/14/2025 5:55 PM EDT CTA CHEST W IV CONTRAST 05/11/2025 1:46 PM CLINICAL INDICATIONS: Aortic valve stenosis. Pre-T aVR evaluation. PROTOCOL: Gated chest CTA and noncontrast calcium scoring CONTRAST: 100 mL Omnipaque 350 TECHNIQUE: Multidetector CT axial slices of the chest were obtained with IV contrast. Multiplanar reformats were performed and viewed on a separate workstation and reviewed to further define anatomy and possible pathology. All CT scans at this facility use dose modulation, iterative reconstruction, and/or weight based dosing when appropriate to reduce radiation dose to as low as reasonably achievable. COMPARISON: None. FINDINGS: Lower neck: Thyroid gland within normal limits, no supraclavicle adenopathy. Vessels: Pulmonary arteries are Within normal limits. Moderate atherosclerotic changes in the aorta. and coronary arteries. Bovine arch configuration with common origin of the brachycephalic and left common carotid artery Mediastinum and Renu: Borderline mediastinal lymph nodes. Small calcified subcarinal and left hilar granulomatous lymph nodes. Heart: Mild cardiomegaly. Moderate pericardial effusion. Airways: Within normal limits Lungs: Bilateral compressive atelectasis in the, right more than left. Calcified granulomas in the left lower lobe. Pleura: Moderate right and small left pleural effusions Chest Wall: Within normal limits. Upper Abdomen: Please refer to abdomen pelvis CT report from the same day for full details Bones: Lower cervical and thoracic spondylosis with bony spurring seen. Noncontrast calcium scoring study revealed grade 3 coarse aortic cusp calcification and total calcium scoring of 4210. There is also mitral valve annular calcification seen. T aVR evaluation: Coronal reconstruction of the aortic root and ascending aorta. 3-D volume rendered images are obtained and saved as well as coronal reconstruction. Localization of the left coronary cusp, right coronary cusp and noncoronary cusp in axial images and 3-D volume rendered images as well as localization of the esophagus. 3 cusped view, anterior view, and no [employer] view are saved in 3-D volume rendered images. The annulus measures 29.2 x 23.7 mm and surface area is 4.91 sq cm. The perimeter is 86.4 mm. Embedded geometric suggest valve diameter of 26 mm. The height of the left coronary artery is 14.8 mm from the annulus and right coronary artery is 12.3 mm from the annulus. Diameter of the right coronary sinus is 39.6 mm, left sinus 41.2 mm and noncoronary sinus 41.7 mm. Diameter of the sinotubular junction is 39.2 mm, ascending aorta 38.2 mm and infrarenal abdominal aorta is 16.9 mm with vascular calcification seen. Diameter of the right common iliac artery is 7.7 mm, right external iliac artery is 7.8 mm and right femoral artery is 6 mm with vascular calcification seen. The height of the left common iliac artery is 8.4 mm, left external iliac artery is 8.3 mm and left femoral artery is 6.6 mm with vascular calcification seen. 3-D volume rendered images revealed tortuosity of the common and external iliac arteries bilaterally. Procedure Note Yenni Stafford MD - 05/14/2025 CTA CHEST W IV CONTRAST 05/11/2025 1:46 PM CLINICAL INDICATIONS: Aortic valve stenosis. Pre-T aVR evaluation. PROTOCOL: Gated chest CTA and noncontrast calcium scoring CONTRAST: 100 mL Omnipaque 350 TECHNIQUE: Multidetector CT axial slices of the chest were obtained withIV contrast. Multiplanar reformats were performed and viewed on a separate workstation and reviewed to further define anatomy and possible pathology. All CT scans at this facility use dose modulation, iterativereconstruction, and/or weight based dosing when appropriate to reduce radiation dose to aslow as reasonably achievable. COMPARISON: None. FINDINGS: Lower neck: Thyroid gland within normal limits, no supraclavicleadenopathy. Vessels: Pulmonary arteries are Within normal limits. Moderateatherosclerotic changes in the aorta. and coronary arteries. Bovine arch configurationwith common origin of the brachycephalic and left common carotid artery Mediastinum and Renu: Borderline mediastinal lymph nodes. Smallcalcified subcarinal and left hilar granulomatous lymph nodes. Heart: Mild cardiomegaly. Moderate pericardial effusion. Airways: Within normal limits Lungs: Bilateral compressive atelectasis in the, right more than left.Calcified granulomas in the left lower lobe. Pleura: Moderate right and small left pleural effusions Chest Wall: Within normal limits. Upper Abdomen: Please refer to abdomen pelvis CT report from the same dayfor full details Bones: Lower cervical and thoracic spondylosis with bony spurring seen. Noncontrast calcium scoring study revealed grade 3 coarse aortic cusp calcification and total calcium scoring of 4210. There is also mitralvalve annular calcification seen. T aVR evaluation: Coronal reconstruction of the aortic root and ascending aorta. 3-Dvolume rendered images are obtained and saved as well as coronalreconstruction. Localization of the left coronary cusp, right coronary cusp andnoncoronary cusp in axial images and 3-D volume rendered images as well as localization ofthe esophagus. 3 cusped view, anterior view, and no [employer] TECH[employer]ICIAN-[employer] view are saved in 3-Dvolume rendered images. The annulus measures 29.2 x 23.7 mm and surface area is 4.91 sq cm. The perimeter is 86.4 mm. Embedded geometric suggest valve diameter of 26 mm. The height of the left coronary artery is 14.8 mm from the annulus andright coronary artery is 12.3 mm from the annulus. Diameter of the right coronary sinus is 39.6 mm, left sinus 41.2 mm and noncoronary sinus 41.7 mm. Diameter of the sinotubular junction is 39.2 mm, ascending aorta 38.2 mmand infrarenal abdominal aorta is 16.9 mm with vascular calcification seen. Diameter of the right common iliac artery is 7.7 mm, right external iliacartery is 7.8 mm and right femoral artery is 6 mm with vascular calcificationseen. The height of the left common iliac artery is 8.4 mm, left external iliacartery is 8.3 mm and left femoral artery is 6.6 mm with vascular calcificationseen. 3-D volume rendered images revealed tortuosity of the common and externaliliac arteries bilaterally. IMPRESSION: Moderate to large right and small left pleural effusions with adjacent compressive atelectasis. Small calcified granuloma in the lung bases and calcified left hilar and mediastinal granulomatous lymph nodes with borderline lymph nodes in the mediastinum. Mild cardiomegaly and moderate pericardial effusion. Mitral valveannular calcification. Grade 3 aortic cusp calcification and total calcium scoring of 4210. T aVR measurements as listed above and suggested valve diameter of 26 mm Electronically signed: Yenni Stafford MD. Promise Pelaez CNP [facility] CT PROCEDURES Final Resul t * (ABNORMAL) POCT glucose meter (05/11/2025 11:35 AM EDT) Glucose POC 201(H) 70 - 105 mg/dL 05/11/2025 11:52 AM EDT [facility] Comment:[email or web address] Blood Capillary blood specimen / Unknown 05/11/2025 11:35 AM EDT 05/11/2025 11:52 AM EDT Narrative [facility] ([facility]) - 05/11/2025 11:52 AM EDT Waived Testing in the ED is performed under the ED CLIA certificate #[id number]. us Julio Cesar Medina MD LAB BLOOD ORDERABLES Final Resul t [facility] ([facility]) [address] [place] [address] * CORONARY ANGIOGRAPHY, RIGHT HEART CATH (05/11/2025 11:05 AM EDT) Anatomical Region Laterality Modality Other Narrative 05/11/2025 4:28 PM EDT PROCEDURE PHYSICIAN: Shamar Nolan MD Clinical Presentation: 85 y.o. Male with history of A-fib on Xarelto, hypertension, HFpEF, CKD, recent history of CVA 4 months ago, renal artery stenosis transferred from [facility] for acute on chronic HFpEF and aortic stenosis. He presents for coronary angiogram and heart catheterization as part of the pre-TAVR workup. Final Impression: 1) coronary angiogram revealed moderate CAD 2) Echo showed severely decompensated heart failure with mean wedge pressure of 28 mmHg Plan: 1) optimal med therapy for CAD and HFpEF 2) further diuresis and optimization of HFpEF med therapy as tolerated Procedures Performed: coronary angiogram, right heart catheterization, conscious sedation 34 min, ultrasound guidance for vascular access Procedure Description: The patient was brought to the cardiac catheterization lab in a fasting state. Informed written consent was obtained. he was prepped and draped in usual sterile fashion over the left wrist and right neck and bilateral groins. Time-out was performed. he was given Versed and fentanyl for sedation. 1% lidocaine was infiltrated over the right internal jugular vein. Using ultrasound guidance and a micropuncture access technique a 6 Moldovan sheath was placed in the right internal jugular vein. The Garza catheter was advanced under fluoroscopic and hemodynamic monitoring to the right atrium. Pressure obtained of the right atrium, right ventricle, pulmonary artery, pulmonary capillary position. Oxygen saturation drawn for the pulmonary artery and Mary cardiac with a cardiac index were calculated. 1% lidocaine was infiltrated over the left radial artery. A 6-Moldovan Terumo Glidesheath slender was placed in left radial artery. Radial anti-vasospasm cocktail of verapamil 1.25 mg and nitroglycerin 100 mcg was administered through the sheath. All catheter exchanges were made over the Hendricks guidewire. Coronary angiogram was performed with a JL4 to engage the left main and a JR4 to engage the RCA. Coronary angiogram was performed in multiple orthogonal views. All catheters and wires were removed. The left radial sheath was removed and a TR band was applied to obtain hemostasis. The right internal jugular venous sheath was also removed and manual pressure applied for hemostasis. Specimens Removed: None Complications: None Hemodynamic Data: RA: 12 mmHg RV: 62/30 mmHg PA: 64/20 (41) mmHg PCWP: 28 mmHg (large V waves to 40 mmHg also noted, consistent with acute heart failure and/or mitral valve disease) AO: 133/55 (MAP 85) mmHg CO: 5.4 L/min CI: 2.7 L/min/m2 O2 Sat: PA sat: 64% AO sat: 99% Coronary Angiogram: Left main: The left main is a large vessel and is. Mid left main is 20% stenosis. The distal left main splits into 4 different branches including the LAD, ramus, and a high OM1 and a circumflex LAD: the ostial LAD has 30% stenosis. The mid LAD has a 50% stenosis. The remainder the LAD and diagonal branches are patent with luminal irregularities. RAMUS: patent with luminal irregularities LCX: The left circumflex is a moderate caliber vessel. The proximal to mid left circumflex is a diffuse 40% stenosis. The remainder of the circumflex is patent with luminal irregularities. RCA: The RCA is a large vessel and is dominant. The proximal RCA has 30% stenosis. Remainder the RCA is luminal irregularities but is otherwise patent. The right PDA and FELIPE are both patent. Study Details Aortic stenosis, acute on chronic HFpEF, CAD us Julio Cesar Medina MD CV CARDIAC CATH PROCEDURES Final Result * (ABNORMAL) POC Hb02% (05/11/2025 10:41 AM EDT) TSDUNR19% 64.1(A) 90 - 95 % QC Pass/Fail Passed QC LOT # [id number] QC Expiration Date 73,126 SAMPLESITE nl Blood Venous blood specimen / Unknown 05/11/2025 10:41 AM EDT Narrative [place]ura Schultz, [place] - 05/14/2025 8:56 AM EDT Oper [id number] us Julio Cesar Medina MD POINT OF CARE TEST ENTER/EDIT OR DERABLES Final Result * Anti-Xa (Heparin Level) (05/11/2025 8:36 AM EDT) [facility] Anti-Xa (Heparin) 0.38 0.3 - 0.7 IU/mL 05/11/2025 9:15 AM EDT [facility]) Comment:Rivaroxaban and Apix aban will interfere with the anti Xa assay used to monitor UFH and LMWH. Blood Venous blood specimen / Unknown Venipuncture / Unknown 05/11/2025 8:36 AM EDT 05/11/2025 8:44 AM EDT us Julio Cesar Medina MD LAB BLOOD ORDERABLES Final Resul t [facility] ([facility]) [address] [place] [address] * (ABNORMAL) POCT glucose meter (05/11/2025 7:48 AM EDT) [facility] Glucose POC 224(H) 70 - 105 mg/dL 05/11/2025 8:00 AM EDT [facility]) Comment:[email or web address] Blood Capillary blood specimen / Unknown 05/11/2025 7:48 AM EDT 05/11/2025 8:00 AM EDT Narrative [facility] ([facility]) - 05/11/2025 8:00 AM EDT Waived Testing in the ED is performed under the ED CLIA certificate #[id number]. us Julio Cesar Medina MD LAB BLOOD ORDERABLES Final Resul t Performing Organization Address City/[facility]/ZIP Co de Phone Number [facility] ([facility]) [address] [place] [address] * Light Blue Top (05/11/2025 4:28 AM EDT) Pathologist [facility] [place] Extra Tube Hold for add-ons. 05/11/2025 6:01 AM EDT [facility]) Comment:Auto resulted. Blood Venous blood specimen / Unknown 05/11/2025 4:28 AM EDT 05/11/2025 4:32 AM EDT us Julio Cesar Medina MD LAB BLOOD ORDERABLES Final Resul t Performing Organization Address [facility] Co de Phone Number [facility]) [address] [place] [address] * (ABNORMAL) Hemoglobin A1c (05/11/2025 4:27 AM EDT) Pathologist [facility] Hemoglobin A1C 9.3(H) 4.0 - 6.0 % 05/11/2025 1:51 PM EDT [facility]) Estimated Average Glucose 220 mg/dL 05/11/2025 1:51 PM EDT [facility]) Blood Venous blood specimen / Unknown Venipuncture / Unknown 05/11/2025 4:27 AM EDT 05/11/2025 4:37 AM EDT us Julio Cesar Medina MD LAB BLOOD ORDERABLES Final Resul t Performing Organization Address City/[facility]/ZIP Co de Phone Number [facility] ([facility]) [address] [place] [address] * Lipid panel (05/11/2025 4:27 AM EDT) Triglycerides 93 <150 mg/dL 05/11/2025 11:01 AM EDT [facility]) Comment: TRIGLYCERIDE REFERENCE RANGE: 20 YEARS AND OLDER CARDIOVASCULAR RISK LESS THAN 150 mg/dL LOW RISK 150 TO 199 mg/dL BORDERLINE RISK 200 mg/dL AND GREATER HIGH RISK Cholesterol 187 120 - 200 mg/dL 05/11/2025 11:01 AM EDT [facility]) LDL Calculated 99 0 - 160 mg/dL 05/11/2025 11:01 AM EDT [facility]) HDL 69 23 - 92 mg/dL 05/11/2025 11:01 AM EDT [facility]) Non HDL Cholesterol 118 05/11/2025 11:01 AM EDT [facility]) Total VLDL-C 19 0 - 40 mg/dL 05/11/2025 11:01 AM EDT [facility]) Cholesterol/HDL Ratio 2.7 mg/dL 05/11/2025 11:01 AM EDT [facility]) Blood Venous blood specimen / Unknown Venipuncture / Unknown 05/11/2025 4:27 AM EDT 05/11/2025 4:37 AM EDT us Julio Cesar Medina MD LAB BLOOD ORDERABLES Final Resul t [facility]) [address] [place] [address] * (ABNORMAL) CBC (05/11/2025 4:27 AM EDT) Auto WBC 11.58(H) 4.00 - 10.60 10*3/uL 05/11/2025 4:46 AM EDT [facility]) RBC 3.84(L) 4.20 - 5.70 10*6/uL 05/11/2025 4:46 AM EDT [facility]) Hemoglobin 9.9(L) 13.0 - 17.0 g/dL 05/11/2025 4:46 AM EDT [facility]) Hematocrit 31.8(L) 39.0 - 50.0 % 05/11/2025 4:46 AM EDT [facility]) MCV 82.8 82.0 - 98.0 fL 05/11/2025 4:46 AM EDT [facility]) MCH 25.8(L) 27.0 - 33.0 pg 05/11/2025 4:46 AM EDT [facility]) MCHC 31.1(L) 32.0 - 35.0 g/dL 05/11/2025 4:46 AM EDT [facility]) RDW 19.0(H) 11.5 - 15.0 % 05/11/2025 4:46 AM EDT [facility]) Platelets 312 150 - 400 10*3/uL 05/11/2025 4:46 AM EDT [facility]) Blood Venous blood specimen / Unknown Venipuncture / Unknown 05/11/2025 4:27 AM EDT 05/11/2025 4:37 AM EDT us Julio Cesar Medina MD LAB BLOOD ORDERABLES Final Resul t [facility]) [address] [place] [address] * (ABNORMAL) Basic metabolic panel (05/11/2025 4:27 AM EDT) Sodium 140 136 - 145 mmol/L 05/11/2025 5:02 AM EDT [facility]) Potassium 4.2 3.5 - 5.1 mmol/L 05/11/2025 5:02 AM EDT [facility]) Chloride 101 98 - 107 mmol/L 05/11/2025 5:02 AM EDT [facility]) CO2 28 21 - 31 mmol/L 05/11/2025 5:02 AM EDT [facility]) BUN 31(H) 7 - 25 mg/dL 05/11/2025 5:02 AM EDT [facility]) Creatinine 1.56(H) 0.70 - 1.30 mg/dL 05/11/2025 5:02 AM EDT [facility]) Glucose 237(H) 70 - 100 mg/dL 05/11/2025 5:02 AM EDT [facility]) Calcium 8.4(L) 8.6 - 10.3 mg/dL 05/11/2025 5:02 AM EDT [facility]) Anion Gap 15 7 - 20 mmol/L 05/11/2025 5:02 AM EDT [facility]) eGFR 43.0(L) >60.0 mL/min/1. 73m*2 05/11/2025 5:02 AM EDT [facility]) Comment:The [facility] s estimated glomerular filtration rate (eGFR) will no longer include consideration of race in its calculation. The [employer] s eGFR Task Force developed new recommendations for the estimation of the glomerular filtration rate in the [place] They recommend immediate implementation of the new equation refit without the race variable in all laboratories because the calculation does not include race. In addition to not including race in the calculation and reporting, it included diversity in its development, and has acceptable performance characteristics and potential consequences that do not disproportionately affect any one group of individuals. BUN/Creatinine Ratio 19.9 04/16 5:02 AM EDT [facility]) Blood Venous blood specimen / Unknown Venipuncture / Unknown 05/11/2025 4:27 AM EDT 05/11/2025 4:37 AM EDT us Julio Cesar Medina MD LAB BLOOD ORDERABLES Final Resul t [facility] ([facility]) [address] [place] [address] * (ABNORMAL) Anti-Xa (Heparin Level) (05/11/2025 12:26 AM EDT) Anti-Xa (Heparin) 0.28(L) 0.3 - 0.7 IU/mL 05/11/2025 12:58 AM EDT [facility]) Comment:Rivaroxaban and Apix aban will interfere with the anti Xa assay used to monitor UFH and LMWH. Blood Venous blood specimen / Unknown Venipuncture / Unknown 05/11/2025 12:26 AM EDT 05/11/2025 12:35 AM EDT us Julio Cesar Medina MD LAB BLOOD ORDERABLES Final Resul t Performing Organization Address City/[facility]/ZIP Co de Phone Number [facility]) [address] [place] [address] * (ABNORMAL) POCT glucose meter (05/10/2025 8:13 PM EDT) Glucose POC 237(H) 70 - 105 mg/dL 05/10/2025 8:24 PM EDT [facility]) Comment: Blood Capillary blood specimen / Unknown 05/10/2025 8:13 PM EDT 05/10/2025 8:24 PM EDT Narrative [facility] ([facility]) - 05/10/2025 8:24 PM EDT Waived Testing in the ED is performed under the ED CLIA certificate #[id number]. us Julio Cesar Medina MD LAB BLOOD ORDERABLES Final Resul t Performing Organization Address [facility] de Phone Number [facility] ([address] [address] * (ABNORMAL) Anti-Xa (Heparin Level) (05/10/2025 5:34 PM EDT) Anti-Xa (Heparin) 0.25(L) 0.3 - 0.7 IU/mL 05/10/2025 6:20 PM EDT [facility] ([facility]) Comment:Rivaroxaban and Apix aban will interfere with the anti Xa assay used to monitor UFH and LMWH. Blood Venous blood specimen / Unknown Venipuncture / Unknown 05/10/2025 5:34 PM EDT 05/10/2025 5:59 PM EDT us Julio Cesar Medina MD LAB BLOOD ORDERABLES Final Resul t [facility] ([facility]) [address] [place] [address] * (ABNORMAL) POCT glucose meter (05/10/2025 4:23 PM EDT) Glucose POC 159(H) 70 - 105 mg/dL 05/10/2025 4:34 PM EDT [facility]) Comment:[email or web address] Blood Capillary blood specimen / Unknown 05/10/2025 4:23 PM EDT 05/10/2025 4:34 PM EDT Narrative [facility] ([facility]) - 05/10/2025 4:34 PM EDT Waived Testing in the ED is performed under the ED CLIA certificate #[id number]. us Julio Cesar Medina MD LAB BLOOD ORDERABLES Final Resul t [facility]) [address] [place] [id number] * (ABNORMAL) Anti-Xa (Heparin Level) (05/10/2025 2:10 PM EDT) Anti-Xa (Heparin) 0.21(L) 0.3 - 0.7 IU/mL 05/10/2025 2:56 PM EDT [facility] ([facility]) Comment:Rivaroxaban and Apix aban will interfere with the anti Xa assay used to monitor UFH and LMWH. Blood Venous blood specimen / Unknown Venipuncture / Unknown 05/10/2025 2:10 PM EDT 05/10/2025 2:20 PM EDT us Julio Cesar Medina MD LAB BLOOD ORDERABLES Final Resul t [facility] ([facility]) [address] [place] [address] * (ABNORMAL) POCT glucose meter (05/10/2025 11:17 AM EDT) Glucose POC 172(H) 70 - 105 mg/dL 05/10/2025 11:28 AM EDT [facility]) Comment:[email or web address] Blood Capillary blood specimen / Unknown 05/10/2025 11:17 AM EDT 05/10/2025 11:28 AM EDT Narrative [facility] ([facility]) - 05/10/2025 11:28 AM EDT Waived Testing in the ED is performed under the ED CLIA certificate #[id number]. us Julio Cesar Medina MD LAB BLOOD ORDERABLES Final Resul t Performing Organization Address City/[facility]/ZIP Co de Phone Number [facility]) [address] [place] [phone] * Platelet count (05/10/2025 10:51 AM EDT) Platelets 349 150 - 400 10*3/uL 05/10/2025 11:27 AM EDT [facility]) Blood Venous blood specimen / Unknown Venipuncture / Unknown 05/10/2025 10:51 AM EDT 05/10/2025 11:18 AM EDT us Julio Cesar Medina MD LAB BLOOD ORDERABLES Final Resul t Performing Organization Address [facility] Co de Phone Number [facility]) [address] [place] [address] * aPTT - baseline (05/10/2025 10:51 AM EDT) aPTT 34.1 25.0 - 35.0 Seconds 05/10/2025 11:41 AM EDT [facility]) Comment:Clinical significanc e of the APTT is questionable in the presence of heparin. Blood Venous blood specimen / Unknown Venipuncture / Unknown 05/10/2025 10:51 AM EDT 05/10/2025 11:15 AM EDT us Julio Cesar Medina MD LAB BLOOD ORDERABLES Final Resul t [facility] ([facility]) [address] [place] [address] * (ABNORMAL) High Sensitivity Troponin I (05/10/2025 10:51 AM EDT) High Sensitivity Troponin I 26(H) <20 ng/L 05/10/2025 11:46 AM EDT [facility] ([facility]) Blood Venous blood specimen / Unknown Venipuncture / Unknown 05/10/2025 10:51 AM EDT 05/10/2025 11:18 AM EDT us Estuardo Reed MD LAB BLOOD ORDERABLES Final Re sult [facility] ([facility]) [address] [place] [address] * COMPLETE ECHO (TTE) (05/10/2025 9:49 AM EDT) Anatomical Region Laterality Modality Other 05/10/2025 9:19 AM EDT Narrative 05/10/2025 10:24 AM EDT 1 [facility] Heart Station [address] [place] [address] [phone] (fax) Echocardiogram-[facility] Name: NADIR BETH Study Date: 05/10/2025 09:19 AM B/P: 178 mmHg/92 mmHg HR: 104 bpm Date of : 1940 Location: [facility] Height: 72 in. Age: 85 year(s) Patient Room: 3122 Weight: 178 lb. Gender: Male Patient Status: InPt BSA: 2.03 m2 Indication: elevated troponins, dyspnea, ckd, Pericardial Effusion, Atrial Fibrillation Examination: Echocardiogram (Complete) Image Quality: Fair Patient Consent: Procedure explained to patient Conclusions Left Ventricle: The left ventricle is normal size. Global left ventricular systolic function is difficult to assess due to rhythm but appears preserved. Left ventricular wall thickness is increased. Right Ventricle: The right ventricle is normal in size. Normal right ventricular systolic function. Doppler studies suggest severely elevated right sided pressures. Left Atrium: The left atrium is severely enlarged. Mitral Valve: Mild mitral regurgitation. Aortic Valve: Mild aortic valve regurgitation. Moderate to severe aortic stenosis. Overall Conclusions: Doppler velocities may be underestimated due to rhythm. Measurements Left Ventricle Label Value Normal Value LVOTd 1.9 cm (19cm - 21cm) LVOT VTI 21 cm (18cm - 22cm) LVOT PGmax 3 mmHg LVDd, 2D 4.84 cm (4.2cm - 5.9cm) LVDs, 2D 3.74 cm (2.1cm - 4cm) IVSd, 2D 1.27 cm (0.6cm - 1.1cm) LVPWd, 2D 1.16 cm (0.6cm - 1cm) LV Mass, 2D ASE 225.96 g LV Mass Index, 2D ASE 111.3 g/m?? (50g/m?? - 102.4g/m??) RWT, MM 0.48 (0 - 0.42) LVSVI, 2D 24.6 ml/m2 LVOT PGmean 2 mmHg LVSV_LVOT 60 ml Right Ventricle Label Value Normal Value RVDd, 2D 4.14 cm (1.9cm - 3.8cm) TAPSE 1.47 cm Left Atrium Label Value Normal Value LA Volume, BP 134 ml (18ml - 58ml) LAESV index, BP 66 ml/m?? Right Atrium Label Value Normal Value RA Area 30.6 cm?? Aortic Valve Label Value Normal Value AV DVI 0.29 AV VTI 61.5 cm Mitral Valve Label Value Normal Value MV E Vmax 1.1 m/s MV E/E' lateral 14.6 MV E' lateral 0.08 m/s Tricuspid Valve Label Value Normal Value RA Pressure 3 mmHg RVSP 73 mmHg Aorta Label Value Normal Value AoRoot, 2D 3.99 cm (1.4cm - 3.8cm) Great Vessels Label Value Normal Value IVC 2 cm (1.2cm - 2.3cm) Valvular Assessment LVOT 0.7 - 1.1 m/sec Aortic Valve 1.0 - 1.7 m/sec Mitral Valve 0.6 - 1.3 m/sec Tricuspid Valve 0.3 - 0.7 m/sec Pulmonic Valve 0.6 - 0.9 m/sec Regurgitation Mild Mild Mild No Stenosis ModS No No No Max Velocity 0.90 m/sec 3.06 m/s 1.10 m/sec 0.95 m/s Max Gradient 37.00 mmHg 4.00 mmHg Mean Gradient 20.00 mmHg Valve Area 0.8 cm?? Findings Left Ventricle: The left ventricle is normal size. Global left ventricular systolic function is difficult to assess due to rhythm but appears preserved. Left ventricular wall thickness is increased. Right Ventricle: The right ventricle is normal in size. Normal right ventricular systolic function. Doppler studies suggest severely elevated right sided pressures. Left Atrium: The left atrium is severely enlarged. Right Atrium: The right atrium is severely enlarged. Mitral Valve: There is nonspecific thickening of the mitral valve leaflet. Mild mitral regurgitation. No mitral valve stenosis. There is mild to moderate mitral annular calcification. Aortic Valve: Severe aortic valve calcification is present. Mild aortic valve regurgitation. Moderate to severe aortic stenosis. Tricuspid Valve: Normal tricuspid valve. Mild tricuspid regurgitation. No tricuspid valve stenosis. Pulmonic Valve: Normal pulmonary valve. No pulmonary regurgitation. No pulmonic valve stenosis. Aorta: The aortic root exhibits mild dilatation. Great Vessels: IVC: The IVC is normal in size. Respiratory inspiration greater than 50%. Pericardium: There is a small pericardial effusion. A left pleural effusion is seen. Procedure Staff Reading Group: [facility] National Sales Representative: SEAN Bailey, RDCS Ordering Physician: ESTUARDO REED Procedure Note Geri Delarosa MD - 05/10/2025 1 1 [facility] Heart Station [address] [facility] [place] [address] [phone] (fax) Echocardiogram-[facility] Name: NADIR BETH Study Date: 05/10/2025 09:19 AM B/P: 178 mmHg/92 mmHg HR: 104 bpm Date of : 1940 Location: [facility] Height: 72 in. Age: 85 year(s) Patient Room: 3122 Weight: 178 lb. Gender: Male Patient Status: InPt BSA: 2.03 m2 Indication: elevated troponins, dyspnea, ckd, Pericardial Effusion, Atrial Fibrillation Examination: Echocardiogram (Complete) Image Quality: Fair Patient Consent: Procedure explained to patient Conclusions Left Ventricle: The left ventricle is normal size. Global left ventricular systolic function is difficult to assess due to rhythm but appears preserved. Left ventricular wall thickness is increased. Right Ventricle: The right ventricle is normal in size. Normal right ventricular systolic function. Doppler studies suggest severely elevated right sided pressures. Left Atrium: The left atrium is severely enlarged. Mitral Valve: Mild mitral regurgitation. Aortic Valve: Mild aortic valve regurgitation. Moderate to severe aortic stenosis. Overall Conclusions: Doppler velocities may be underestimated due to rhythm. Measurements Left Ventricle Label Value Normal Value LVOTd 1.9 cm (19cm - 21cm) LVOT VTI 21 cm (18cm - 22cm) LVOT PGmax 3 mmHg LVDd, 2D 4.84 cm (4.2cm - 5.9cm) LVDs, 2D 3.74 cm (2.1cm - 4cm) IVSd, 2D 1.27 cm (0.6cm - 1.1cm) LVPWd, 2D 1.16 cm (0.6cm - 1cm) LV Mass, 2D ASE 225.96 g LV Mass Index, 2D ASE 111.3 g/m?? (50g/m?? - 102.4g/m??) RWT,MM 0.48 (0 - 0.42) LVSVI, 2D 24.6 ml/m2 LVOT PGmean 2 mmHg LVSV_LVOT 60 ml Right Ventricle Label Value Normal Value RVDd, 2D 4.14 cm (1.9cm - 3.8cm) TAPSE 1.47 cm Left Atrium Label Value Normal Value LA Volume, BP 134 ml (18ml - 58ml) LAESV index, BP 66 ml/m?? Right Atrium Label Value Normal Value RA Area 30.6 cm?? Aortic Valve Label Value Normal Value AV DVI 0.29 AV VTI 61.5 cm Mitral Valve Label Value Normal Value MV E Vmax 1.1 m/s MV E/E' lateral 14.6 MV E' lateral 0.08 m/s Tricuspid Valve Label Value Normal Value RA Pressure 3 mmHg RVSP 73 mmHg Aorta Label Value Normal Value AoRoot, 2D 3.99 cm (1.4cm - 3.8cm) Great Vessels Label Value Normal Value IVC 2 cm (1.2cm - 2.3cm) Valvular Assessment LVOT 0.7 - 1.1 m/sec Aortic Valve 1.0 - 1.7 m/sec Mitral Valve 0.6 - 1.3 m/sec Tricuspid Valve 0.3 - 0.7 m/sec Pulmonic Valve 0.6 - 0.9 m/sec Regurgitation Mild Mild Mild No Stenosis ModS No No No Max Velocity 0.90 m/sec 3.06 m/s 1.10 m/sec 0.95 m/s Max Gradient 37.00 mmHg 4.00 mmHg Mean Gradient 20.00 mmHg Valve Area 0.8 cm?? Findings Left Ventricle: The left ventricle is normal size. Global left ventricular systolic function is difficult to assess due to rhythm but appears preserved. Left ventricular wall thickness is increased. Right Ventricle: The right ventricle is normal in size. Normal right ventricular systolic function. Doppler studies suggest severely elevated right sided pressures. Left Atrium: The left atrium is severely enlarged. Right Atrium: The right atrium is severely enlarged. Mitral Valve: There is nonspecific thickening of the mitral valve leaflet. Mild mitral regurgitation. No mitral valve stenosis. There is mild to moderate mitral annular calcification. Aortic Valve: Severe aortic valve calcification is present. Mild aortic valve regurgitation. Moderate to severe aortic stenosis. Tricuspid Valve: Normal tricuspid valve. Mild tricuspid regurgitation. No tricuspid valve stenosis. Pulmonic Valve: Normal pulmonary valve. No pulmonary regurgitation. No pulmonic valve stenosis. Aorta: The aortic root exhibits mild dilatation. Great Vessels: IVC: The IVC is normal in size. Respiratory inspiration greater than 50%. Pericardium: There is a small pericardial effusion. A left pleural effusion is seen. Procedure Staff Reading Group: [facility] National Sales Representative: SEAN Bailey, RDCS Ordering Physician: ESTUARDO REED us Estuardo Reed MD CV ECHO PROCEDURES Final Resu lt * (ABNORMAL) B-type natriuretic peptide (05/10/2025 8:21 AM EDT) BNP 736(H) 0 - 100 pg/mL 05/10/2025 9:09 AM EDT [facility] Blood Venous blood specimen / Unknown Venipuncture / Unknown 05/10/2025 8:21 AM EDT 05/10/2025 8:40 AM EDT us Azeem Green MD LAB BLOOD ORDERABLES Final Resul t Performing Organization Address City/[facility]/ZIP Co de Phone Number [facility]) [address] [place] [address] * (ABNORMAL) High Sensitivity Troponin I (05/10/2025 8:21 AM EDT) High Sensitivity Troponin I 21(H) <20 ng/L 05/10/2025 9:09 AM EDT [facility] ([facility]) Blood Venous blood specimen / Unknown Venipuncture / Unknown 05/10/2025 8:21 AM EDT 05/10/2025 8:39 AM EDT us Estuardo Reed MD LAB BLOOD ORDERABLES Final Re sult Performing Organization Address City/[facility]/ZIP Co de Phone Number [facility]) [address] [place] [phone] * (ABNORMAL) POCT glucose meter (05/10/2025 7:17 AM EDT) Glucose POC 186(H) 70 - 105 mg/dL 05/10/2025 7:28 AM EDT [facility] ([facility]) Comment:[email or web address] Blood Capillary blood specimen / Unknown 05/10/2025 7:17 AM EDT 05/10/2025 7:28 AM EDT Narrative [facility]) - 05/10/2025 7:28 AM EDT Waived Testing in the ED is performed under the ED CLIA certificate #[id number]. us Julio Cesar Medina MD LAB BLOOD ORDERABLES Final Resul t Performing Organization Address City/[facility]/ZIP Co de Phone Number [facility]) [address] [place] [address] * (ABNORMAL) CBC auto differential (05/10/2025 4:54 AM EDT) Auto WBC 10.50 4.00 - 10.60 10*3/uL 05/10/2025 5:41 AM EDT [facility] ([facility]) RBC 4.05(L) 4.20 - 5.70 10*6/uL 05/10/2025 5:41 AM EDT [facility] ([facility]) Hemoglobin 10.4(L) 13.0 - 17.0 g/dL 05/10/2025 5:41 AM EDT [facility] ([facility]) Hematocrit 33.3(L) 39.0 - 50.0 % 05/10/2025 5:41 AM EDT [facility] ([facility]) MCV 82.2 82.0 - 98.0 fL 05/10/2025 5:41 AM EDT [facility] ([facility]) MCH 25.7(L) 27.0 - 33.0 pg 05/10/2025 5:41 AM EDT [facility] ([facility]) MCHC 31.2(L) 32.0 - 35.0 g/dL 05/10/2025 5:41 AM EDT [facility] ([facility]) RDW 19.2(H) 11.5 - 15.0 % 05/10/2025 5:41 AM EDT [facility] ([facility]) Neutrophils % 79.1(H) 40.0 - 72.0 % 05/10/2025 5:41 AM EDT [facility]) Lymphocytes % 8.2(L) 20.0 - 45.0 % 05/10/2025 5:41 AM EDT [facility] ([facility]) Monocytes % 10.3 5.0 - 12.0 % 05/10/2025 5:41 AM EDT [facility] ([facility]) Eosinophils % 1.4 0.0 - 6.0 % 05/10/2025 5:41 AM EDT [facility] ([facility]) Basophils % 0.4 0.0 - 1.0 % 05/10/2025 5:41 AM EDT [facility] ([facility]) Neutrophils Absolute 8.31(H) 1.60 - 7.60 10*3/uL 05/10/2025 5:41 AM EDT [facility] ([facility]) Lymphocytes Absolute 0.86(L) 1.20 - 4.00 10*3/uL 05/10/2025 5:41 AM EDT [facility] ([facility]) Monocytes Absolute 1.08(H) 0.10 - 1.00 10*3/uL 05/10/2025 5:41 AM EDT [facility] ([facility]) Eosinophils Absolute 0.15 0.00 - 0.50 10*3/uL 05/10/2025 5:41 AM EDT [facility] ([facility]) Basophils Absolute 0.04 0.00 - 0.20 10*3/uL 05/10/2025 5:41 AM EDT [facility] ([facility]) Platelets 311 150 - 400 10*3/uL 05/10/2025 5:41 AM EDT [facility] ([facility]) nRBC % 0.0 0 % 05/10/2025 5:41 AM EDT [facility] ([facility]) Immature Granulocytes % 0.6 0.0 - 1.0 % 05/10/2025 5:41 AM EDT [facility] ([facility]) Immature Granulocytes Absolute 0.06 0.00 - 0.20 10*3/uL 05/10/2025 5:41 AM EDT [facility] ([facility]) Blood Venous blood specimen / Unknown Venipuncture / Unknown 05/10/2025 4:54 AM EDT 05/10/2025 5:10 AM EDT us Estuardo Reed MD LAB BLOOD ORDERABLES Final Re sult [facility] ([facility]) [address] [place] [address] * (ABNORMAL) High Sensitivity Troponin I (05/10/2025 4:54 AM EDT) Pathologist [facility] High Sensitivity Troponin I 21(H) <20 ng/L 05/10/2025 5:49 AM EDT [facility] ([facility]) Blood Venous blood specimen / Unknown Venipuncture / Unknown 05/10/2025 4:54 AM EDT 05/10/2025 5:08 AM EDT us Estaurdo Reed MD LAB BLOOD ORDERABLES Final Re sult [facility]) [address] [place] [address] * TSH3 Reflex to FT4 (05/10/2025 4:54 AM EDT) TSH 1.34 0.34 - 5.60 mIU/L 05/10/2025 5:49 AM EDT [facility] ([facility]) Blood Venous blood specimen / Unknown Venipuncture / Unknown 05/10/2025 4:54 AM EDT 05/10/2025 5:08 AM EDT us Estuardo Reed MD LAB BLOOD ORDERABLES Final Re sult Performing Organization Address City/[facility]/ZIP Co de Phone Number [facility]) [address] [place] [address] * Magnesium (05/10/2025 4:54 AM EDT) Magnesium 2.0 1.9 - 2.7 mg/dL 05/10/2025 5:49 AM EDT [facility]) Blood Venous blood specimen / Unknown Venipuncture / Unknown 05/10/2025 4:54 AM EDT 05/10/2025 5:08 AM EDT us Estuardo Reed MD LAB BLOOD ORDERABLES Final Re sult [facility] ([facility]) [address] [place] [address] * (ABNORMAL) Comprehensive metabolic panel (05/10/2025 4:54 AM EDT) Sodium 139 136 - 145 mmol/L 05/10/2025 5:49 AM T [facility] ([facility]) Potassium 3.6 3.5 - 5.1 mmol/L 05/10/2025 5:49 AM [facility] ([facility]) Chloride 101 98 - 107 mmol/L 05/10/2025 5:49 AM T [facility] ([facility]) CO2 26 21 - 31 mmol/L 05/10/2025 5:49 AM [facility] ([facility]) Anion Gap 16 7 - 20 mmol/L 05/10/2025 5:49 AM T [facility] ([facility]) BUN 28(H) 7 - 25 mg/dL 05/10/2025 5:49 AM [facility] ([facility]) Creatinine 1.45(H) 0.70 - 1.30 mg/dL 05/10/2025 5:49 AM [facility] ([facility]) BUN/Creatinine Ratio 19.3 04/16 5:49 AM [facility] ([facility]) Glucose 156(H) 70 - 100 mg/dL 05/10/2025 5:49 AM [facility] ([facility]) Calcium 8.5(L) 8.6 - 10.3 mg/dL 05/10/2025 5:49 AM [facility] ([facility]) AST 14 13 - 39 U/L 05/10/2025 5:49 AM [facility] ([facility]) ALT (SGPT) 7 7 - 52 U/L 05/10/2025 5:49 AM [facility] ([facility]) Alkaline Phosphatase 72 34 - 104 U/L 05/10/2025 5:49 AM [facility] ([facility]) Total Protein 6.2 6.0 - 8.3 g/dL 05/10/2025 5:49 AM [facility] ([facility]) Albumin 3.5 3.5 - 5.7 g/dL 05/10/2025 5:49 AM [facility] ([facility]) Total Bilirubin 0.4 0.3 - 1.0 mg/dL 05/10/2025 5:49 AM EDT [facility] ([facility]) eGFR 46.9(L) >60.0 mL/min/1. 73m*2 05/10/2025 5:49 AM EDT [facility] ([facility]) Comment:The [facility] s estimated glomerular filtration rate (eGFR) will no longer include consideration of race in its calculation. The [employer] s eGFR Task Force developed new recommendations for the estimation of the glomerular filtration rate in the [place] They recommend immediate implementation of the new equation refit without the race variable in all laboratories because the calculation does not include race. In addition to not including race in the calculation and reporting, it included diversity in its development, and has acceptable performance characteristics and potential consequences that do not disproportionately affect any one group of individuals. 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) Aortic stenosis, severe LBBB (left bundle branch block) Other left bundle branch block Cardiac arrhythmia, unspecified cardiac arrhythmia type Palpitations Primary hypertension Unspecified essential hypertension Pleural effusion Unspecified pleural effusion Primary hypertension Unspecified essential hypertension Acute congestive heart failure (CMS/HCC) Congestive heart failure, unspecified History of CVA (cerebrovascular accident) Transient ischemic attack (TIA), and cerebral infarction without residual deficits Type 2 diabetes mellitus, with long-term current use of insulin (CMS/HCC) Other hyperlipidemia Chronic atrial fibrillation (CMS/HCC) Atrial fibrillation Angina pectoris, unstable (CMS/HCC) Intermediate coronary syndrome Chronic kidney disease Chronic kidney disease, unspecified Elevated troponin Other abnormal blood chemistry 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) Aortic stenosis, severe Nonrheumatic aortic valve stenosis 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 Angina pectoris, unstable (CMS/HCC) Intermediate coronary syndrome Acute diastolic congestive heart failure (CMS/HCC) Nonrheumatic aortic valve stenosis documented in this encounter Admitting Diagnoses Diagnosis Chest pain Unspecified chest pain Angina pectoris, unstable (CMS/HCC) Intermediate coronary syndrome 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) Aortic stenosis, severe documented in this encounter Administered Medications Inactive Administered Medications - up to 3 most recent administrations Medication Order MAR Action Action Date Dose Rate Site acetaminophen (Tylenol) tablet 500 mg 500 mg, oral, Every 6 hours PRN, mild pain (1-3 pain score), Starting on Wed05/10/25 at 0403, For 99 days Given 05/10/2025 4:59 PM EDT 500 mg acetaminophen (Tylenol) tablet 650 mg 650 mg, oral, Every 6 hours PRN, mild pain (1-3 pain score), Starting on Wed05/16/25 at 1533, For 99 days Given 05/17/2025 9:11 AM EDT 650 mg Given 05/16/2025 3:41 PM EDT 650 mg aspirin EC tablet 81 mg 81 mg, oral, Daily, First dose on Wed05/10/25 at 1000, For 99 days, Do not crush, chew, or split. Given 05/15/2025 8:29 AM EDT 81 mg Given 05/14/2025 10:16 AM EDT 81 mg Given 05/13/2025 10:17 AM EDT 81 mg carvedilol (Coreg) tablet 25 mg 25 mg, oral, 2 times daily, First dose on Wed05/10/25 at 1000, For 99 days Given 05/10/2025 10:05 AM EDT 25 mg cholecalciferol (Vitamin D-3) tablet 1,000 Units 1,000 Units, oral, Daily, First dose on Wed05/10/25 at 1000 Given 05/17/2025 9:18 AM EDT 1,000 Units Given 05/16/2025 9:44 AM EDT 1,000 Units Given 05/15/2025 8:29 AM EDT 1,000 Units cloNIDine (Catapres) tablet 0.2 mg 0.2 mg, oral, 3 times daily, First dose on Wed05/10/25 at 1000, For 99 days Given 05/17/2025 9:18 AM EDT 0.2 mg Given 05/16/2025 10:41 PM EDT 0.2 mg Given 05/16/2025 9:44 AM EDT 0.2 mg dapagliflozin propanediol (Farxiga) tablet 10 mg 10 mg, oral, Daily, First dose on Sol 05/10/25 at 1000 Given 05/17/2025 9:18 AM EDT 10 mg Given 05/16/2025 9:45 AM EDT 10 mg Given 05/15/2025 8:29 AM EDT 10 mg dextrose 50 % in water (D50W) syringe 25 g 25 g, intravenous, Every 15 min PRN, capillary blood glucose < 70 mg/dL and patient unable to take oral and has IV access, Starting on Wed05/10/25 at 0411, For 99 days, - Recheck blood glucose 5 minutes after dextrose administration. - Repeat treatment as ordered until blood glucose is greater than or equal to 80 mg/dL. - Provide a snack/meal within 1 hour after correction of hypoglycemia if not NPO. - If patient NPO or on enteral tube feeds, contact physician for potential additional interventions(s) (i.e. 5% or 10% dextrose IV fluids or tube feeding bolus) diphenhydrAMINE (BENADryl) injection 25 mg 25 mg, intravenous, Once, On Wed05/11/25 at 0845, For 1 dose, Recovery & On Unit Given 05/11/2025 8:59 AM EDT 25 mg diphenhydrAMINE (BENADryl) injection 50 mg 50 mg, intravenous, Once, On Wed05/10/25 at 1730, For 1 dose, Administer 1 hour prior to contrasted exam. Given 05/10/2025 5:13 PM EDT 50 mg ezetimibe (Zetia) tablet 10 mg 10 mg, oral, Daily, First dose on Sol 05/10/25 at 1000, For 99 days Given 05/17/2025 9:18 AM EDT 10 mg Given 05/16/2025 9:45 AM EDT 10 mg Given 05/15/2025 8:28 AM EDT 10 mg furosemide (Lasix) injection 40 mg 40 mg, intravenous, Every 12 hours, First dose on Sol 05/10/25 at 0500, For 99 days, Administer undiluted IV push at a rate no greater than 20 mg/minute. Given 05/10/2025 6:25 AM EDT 40 mg furosemide (Lasix) injection 40 mg 40 mg, intravenous, Every 8 hours, First dose (after last modification) on Sol 05/10/25 at 1330, Administer undiluted IV push at a rate no greater than 20 mg/minute. Given 05/11/2025 2:43 PM EDT 40 mg Given 05/11/2025 5:05 AM EDT 40 mg Given 05/10/2025 9:49 PM EDT 40 mg furosemide (Lasix) injection 40 mg 40 mg, intravenous, Every 8 hours, First dose (after last modification) on [facility] 05/12/25 at 1330, Administer undiluted IV push at a rate no greater than 20 mg/minute. Given 05/13/2025 5:58 AM EDT 40 mg Given 05/12/2025 9:56 PM EDT 40 mg Given 05/12/2025 2:14 PM EDT 40 mg furosemide (Lasix) injection 60 mg 60 mg, intravenous, Every 8 hours, First dose (after last modification) on Wed05/11/25 at 2130, Administer undiluted IV push at a rate no greater than 20 mg/minute. Given 05/12/2025 4:42 AM EDT 60 mg Given 05/11/2025 9:26 PM EDT 60 mg furosemide (Lasix) tablet 40 mg 40 mg, oral, 2 times daily, First dose on Wed05/13/25 at 1130, For 99 days Given 05/14/2025 10:16 AM EDT 40 mg Given 05/13/2025 9:07 PM EDT 40 mg Given 05/13/2025 12:32 PM EDT 40 mg furosemide (Lasix) tablet 40 mg 40 mg, oral, Daily, First dose (after last modification) on Wed05/15/25 at 1000 Given 05/17/2025 9:59 AM EDT 40 mg Given 05/16/2025 9:45 AM EDT 40 mg Given 05/15/2025 8:28 AM EDT 40 mg glucose chewable tablet 24 g 24 g, oral, Every 15 min PRN, capillary blood glucose < 70 mg/dL and patient alert and eating, Starting on Sol 05/10/25 at 0411, For 99 days, - Recheck blood glucose 5 minutes after dextrose administration. - Repeat treatment as ordered until blood glucose is greater than or equal to 80 mg/dL. - Provide a snack/meal within 1 hour after correction of hypoglycemia if not NPO. - If patient NPO or on enteral tube feeds, contact physician for potential additional interventions(s) (i.e. 5% or 10% dextrose IV fluids or tube feeding bolus) guaiFENesin (Mucinex) 12 hr tablet 600 mg 600 mg, oral, 2 times daily, First dose on Wed05/11/25 at 1400, For 99 days, Administer with plenty of fluids to ensure proper action. Do not crush, chew, or split. Given 05/12/2025 10:14 AM EDT 600 m g Given 05/11/2025 9:26 PM EDT 600 mg Given 05/11/2025 2:44 PM EDT 600 mg heparin (porcine) injection 5,000 Units 5,000 Units, intravenous, Once, On 05/14/25 at 1530, For 1 dose, Cardiac/Stroke protocol - Initial bolus. Maximum dose 5000 units. Given 05/14/2025 4:46 PM EDT 5,000 Units heparin infusion 100 units/mL in D5W 0-28 Units/kg/hr 81 kg (0-22.68 mL/hr, rounded to 0-22.7 mL/hr), intravenous, Continuous, Starting on Sol 05/10/25 at 0845, For 99 days, Cardiac/Stroke protocol - Monitor antiXa level 6 hours after rate change, then every 6 hours until therapeutic twice. While therapeutic monitor every AM., Initial Heparin rate (units/kg/hr): 15, Anti-Xa < 0.20 Maintenance Dose Adjustment (units/kg/hr): 2, Anti-Xa < 0.20 Bolus Dose (units/kg): 0, Anti-Xa 0.2-0.29 Heparin Maintenance Dose Adjustment (units/kg/hr): 1, Anti-Xa 0.3-0.7 Maintenance Dose Adjustment (units/kg/hr): 0, Anti-Xa 0.71-0.8 Maintenance Dose Adjustment (units/kg/hr): -1, Anti-Xa 0.81-0.99 Maintenance Dose Adjustment (units/kg/hr): -2, Anti-Xa 1.00 or greater = Maintenance Dose Adjustment (units/kg/hr): -2, Anti-Xa 1.0 or greater = Bolus Dose (units/kg): 0, Anti-Xa 1.0 or greater = adjust current infusion: Hold infusion for 1 hour, then restart at 2 units/kg/hr below current dose., Indication: Cardiac/Stroke New Bag 05/12/2025 8:56 AM EDT 17 Units/kg/hr 13.8 mL/hr Rate/Dose Verify 05/12/2025 4:51 AM EDT 17 Units/kg/hr 13. 8 mL/hr Rate/Dose Change 05/11/2025 10:13 PM EDT 17 Units/kg/hr 13 .8 mL/hr heparin infusion 100 units/mL in D5W 0-28 Units/kg/hr 74.1 kg (0-20.748 mL/hr, rounded to 0-20.7 mL/hr), intravenous, Continuous, Starting on Wed05/14/25 at 1530, For 2 days 2 hours, Initial Heparin rate (units/kg/hr): 15, PTT below 55s - Bolus heparin IV (units/kg): 0, PTT < 55 Maintenance Dose Adjustment (units/kg/hr): 2, PTT 55-69 Heparin Maintenance Dose Adjustment (units/kg/hr): 1, PTT 70-130 Maintenance dose adjustment (units/kg/hr): 0, PTT 131-170 Maintenance Dose Adjustment (units/kg/hr): -1, PTT 171-200 Maintenance Dose Adjustment (units/kg/hr): -2, PTT > 200 Maintenance Dose Adjustment (units/kg/hr): -2, PTT ABOVE 200 - Change current infusion: Hold infusion for 1 hour, then restart at rate shown above (2 units/kg/hr below current rate)., Indication: Cardiac/Stroke Rate/Dose Verify 05/16/2025 4:12 PM EDT 19 Units/kg/hr 14.1 mL/hr Rate/Dose Verify 05/16/2025 11:00 AM EDT 19 Units/kg/hr 14 .1 mL/hr Rate/Dose Verify 05/16/2025 10:00 AM EDT 19 Units/kg/hr 14 .1 mL/hr hydrALAZINE (Apresoline) tablet 25 mg 25 mg, oral, 3 times daily, First dose on Wed05/10/25 at 1000, For 99 days Given 05/17/2025 9:18 AM EDT 25 mg Given 05/16/2025 10:41 PM EDT 25 mg Given 05/16/2025 9:44 AM EDT 25 mg insulin glargine (Lantus) injection vial 10 Units 10 Units, subcutaneous, 2 times daily, First dose on Wed05/17/25 at 1000, For 99 days Given 05/17/2025 9:59 AM EDT 10 Units Left Lower Abdomen insulin lispro (HumaLOG) injection 0-10 Units 0-10 Units, subcutaneous, 3 times daily with meals, First dose on Wed05/10/25 at 0800, For 99 days, BG less than 110 instructions: Hold Insulin. If BG less than 70, implement hypoglycemia orders., BG 110-150: 0, BG 151-200: 2, BG 201-250: 4, BG 251-300: 6, BG 301-350: 8, BG 351-400: 10, BG greater than 400 instructions: Call Physician Given 05/17/2025 5:35 PM EDT 8 Units Left Lower Abdomen Given 05/17/2025 12:25 PM EDT 8 Units L eft Lower Abdomen Given 05/17/2025 9:11 AM EDT 4 Units Le ft Lower Abdomen insulin lispro (HumaLOG) injection 0-8 Units 0-8 Units, subcutaneous, Nightly, First dose on Sol 05/10/25 at 2200, For 99 days, BG less than 110 instructions: Hold Insulin. If BG less than 70, implement hypoglycemia orders, BG 110-150: 0, BG 151-200: 0, BG 201-250: 2, BG 251-300: 4, BG 301-350: 6, BG 351-400: 8, BG greater than 400 instructions: Call Physician Given 05/16/2025 10:37 PM EDT 8 Units Left Upper Arm (Back ) Given 05/14/2025 9:02 PM EDT 6 Units Le ft Lower Abdomen Given 05/13/2025 9:07 PM EDT 2 Units Le ft Lower Abdomen iohexol (OMNIPaque) 350 mg iodine/mL injection 100 mL 100 mL, intravenous, Once in imaging, Starting on Wed05/11/25 at 1353, For 1 dose Given 05/11/2025 2:12 PM E DT 100 mL labetalol (Normodyne) tablet 300 mg 300 mg, oral, 3 times daily, First dose on Wed05/10/25 at 1000 Given 05/17/2025 3:51 PM EDT 300 mg Given 05/17/2025 9:18 AM EDT 300 mg Given 05/16/2025 10:38 PM EDT 300 mg melatonin tablet 2 mg 2 mg, oral, Nightly PRN, sleep, Starting on Wed05/13/25 at 1903, For 99 days Given 05/14/2025 9:01 PM EDT 2 mg Given 05/13/2025 9:07 PM EDT 2 mg methylPREDNISolone sod suc(PF) (SOLU-Medrol) 125 mg/2 mL injection 125 mg 125 mg, intravenous, Once, On Wed05/10/25 at 1730, For 1 dose, Administer 1 hour prior to contrasted exam. If powder-only vial dispensed, reconstitute with 2 mL Sterile Water for Injection for a concentration of 125mg/2mL. Given 05/10/2025 5:14 PM EDT 125 mg methylPREDNISolone sod suc(PF) (SOLU-Medrol) 125 mg/2 mL injection 125 mg 125 mg, intravenous, Once, On Wed05/11/25 at 0845, For 1 dose, If powder-only vial dispensed, reconstitute with 2 mL Sterile Water for Injection for a concentration of 125mg/2mL. Given 05/11/2025 8:59 AM EDT 125 mg mometasone-formoterol (Dulera 100) 100-5 mcg/actuation inhaler 2 puff 2 puff, inhalation, 2 times daily RT, First dose on Wed05/15/25 at 1000, Rinse mouth with water after use to reduce aftertaste and incidence of candidiasis. Do not swallow. Given 05/17/2025 9:59 AM EDT 2 puffs Given 05/16/2025 10:37 PM EDT 2 puffs Given 05/16/2025 9:32 AM EDT 2 puffs piperacillin-tazobactam (Zosyn) IVPB 4.5 g in 100 mL NS Mini-Bag Plus 4.5 g, intravenous, at 200 mL/hr, Administer over 0.5 Hours, Once, On Wed05/16/25 at 1145, For 1 dose, Suspected Indication (Select all that apply): Pneumonia, Type of Pneumonia: Community-Acquired, Pseudomonas Aeruginosa Risk Factors: Recent hospitalization with greater than 72 hours of IV antibiotics New Bag 05/16/2025 12:51 PM EDT 4.5 g 200 mL/hr piperacillin-tazobactam (Zosyn) IVPB 4.5 g in 100 mL NS Mini-Bag Plus 4.5 g, intravenous, at 25 mL/hr, Administer over 4 Hours, Every 8 hours, First dose on Wed05/16/25 at 1545, For 3 days, Suspected Indication (Select all that apply): Pneumonia, Type of Pneumonia: Community-Acquired, Pseudomonas Aeruginosa Risk Factors: Recent hospitalization with greater than 72 hours of IV antibiotics New Bag 05/17/2025 3:34 PM EDT 4.5 g 25 mL/h r New Bag 05/17/2025 6:31 AM EDT 4.5 g 25 mL/hr New Bag 05/17/2025 12:07 AM EDT 4.5 g 25 mL/hr polyethylene glycol (Glycolax) packet 17 g 17 g, oral, Daily PRN, constipation, Starting on Wed05/10/25 at 0405, For 99 days Given 05/13/2025 10:45 AM EDT 17 g prednisoLONE acetate (Pred-Forte) 1 % ophthalmic suspension 1 drop 1 drop, Right Eye, 2 times daily, First dose on Wed05/15/25 at 1000, For 99 days, SHAKE WELL Given 05/17/2025 9:19 AM EDT 1 drop Given 05/16/2025 9:46 AM EDT 1 drop Given 05/16/2025 1:11 AM EDT 1 drop predniSONE (Deltasone) tablet 60 mg 60 mg, oral, Once, On Wed05/14/25 at 2200, For 1 dose Given 05/14/2025 10:12 PM EDT 60 mg predniSONE (Deltasone) tablet 60 mg 60 mg, oral, Once, On Wed05/15/25 at 0700, For 1 dose Given 05/15/2025 6:03 AM EDT 60 mg primidone (Mysoline) tablet 50 mg 50 mg, oral, 2 times daily, First dose on Wed05/15/25 at 1000, For 99 days Given 05/17/2025 9:18 AM EDT 50 mg Given 05/16/2025 10:38 PM EDT 50 mg Given 05/16/2025 9:46 AM EDT 50 mg rivaroxaban (Xarelto) tablet 15 mg 15 mg, oral, Daily with evening meal, First dose (after last modification) on Wed05/16/25 at 1700, For 96 doses, Best administered with food or immediately before tube feedings. If ordered via NG or G-tube route, crush and mix with 50 mL water; give within 4 hours of mixing., Rivaroxaban indication: Non-valvular Atrial Fibrillation Given 05/17/2025 5:35 PM EDT 15 mg Given 05/16/2025 4:20 PM EDT 15 mg rivaroxaban (Xarelto) tablet 20 mg 20 mg, oral, Daily with evening meal, First dose on Wed05/12/25 at 1700, For 99 days, Best administered with food or immediately before tube feedings. If ordered via NG or G-tube route, crush and mix with 50 mL water; give within 4 hours of mixing., Rivaroxaban indication: Non-valvular Atrial Fibrillation, On hold since Wed05/14/2025 at 1517 until manually unheld Given 05/13/2025 4:43 PM EDT 20 mg Given 05/12/2025 4:37 PM EDT 20 mg spironolactone (Aldactone) tablet 25 mg 25 mg, oral, Daily, First dose on Wed05/10/25 at 1000, For 99 days Given 05/17/2025 9:18 AM EDT 25 mg Given 05/16/2025 9:45 AM EDT 25 mg Given 05/15/2025 8:29 AM EDT 25 mg tamsulosin (Flomax) 24 hr capsule 0.4 mg 0.4 mg, oral, Daily with evening meal, First dose on Wed05/15/25 at 1700, For 99 days, Do not crush, chew, or split. Given 05/17/2025 5:35 PM EDT 0.4 mg Given 05/16/2025 4:20 PM EDT 0.4 mg umeclidinium (Incruse Ellipta) 62.5 mcg/actuation inhalation 62.5 mcg 62.5 mcg (1 puff), inhalation, Daily RT, First dose on Wed05/15/25 at 1000, For 99 days Given 05/15/2025 10:50 AM EDT 62.5 mcg documented in this encounter Active and Recently Administered Medications Times are shown in EDT. Scheduled Medication Order 05/15/2025 05/16/2025 05/17/2025 aspirin EC tablet 81 mg (CANCELED) 81 mg, oral, Daily, First dose on Wed05/10/25 at 1000, For 99 days, Do not crush, chew, or split. 0829 (Given - Provider: Cara Bullock RN - Comment: ok per [employer]) cholecalciferol (Vitamin D-3) tablet 1,000 Units 1,000 Units, oral, Daily, First dose on Wed05/10/25 at 1000 0829 (Given - Provider: Cara Bullock RN - Comment: ok per [employer]) 0944 (Given - Provider: Pauline Duran RN) 0918 (Given - Provider: Yolanda Syed, BRANDEN) cloNIDine (Catapres) tablet 0.2 mg 0.2 mg, oral, 3 times daily, First dose on Wed05/10/25 at 1000, For 99 days 0900 (Not Given - Provider: Cara Bullock RN - Reason: See Provider Order - Comment: hold per [employer])1600 (Canceled Entry - Provider: Pauline Duran RN - Comment: pt in procedure)2240 (Given - Provider: Elvira Wheatley RN) 0944 (Given - Provider: Pauline Duran, BRANDEN)1600 (Not Given - Provider: Yolanda Syed RN - Reason: Other - Comment: per provider)2241 (Given - Provider: Cee Watkins RN) 0918 (Given - Provider: Yolanda Syed, BRANDEN)1600 (Not Given - Provider: Yolanda Syed RN - Reason: Other - Comment: per provider)2200 (Canceled Entry - Provider: Automatic Discharge Provider - Comment: Automatically canceled at discontinue of medication order) dapagliflozin propanediol (Farxiga) tablet 10 mg 10 mg, oral, Daily, First dose on Wed05/10/25 at 1000 0829 (Given - Provider: Cara Bullock RN - Comment: ok per [employer]) 0945 (Given - Provider: Pauline Duran RN) 0918 (Given - Provider: Yolanda Syed, RN) ezetimibe (Zetia) tablet 10 mg 10 mg, oral, Daily, First dose on Wed05/10/25 at 1000, For 99 days 0828 (Given - Provider: Cara Bullock RN - Comment: ok per Manager Media) 0945 (Given - Provider: Pauline Duran RN) 0918 (Given - Provider: Yolanda Syed RN) furosemide (Lasix) tablet 40 mg 40 mg, oral, Daily, First dose (after last modification) on Wed05/15/25 at 1000 0828 (Given - Provider: Cara Bullock RN - Comment: ok per Manager [employer]) 0945 (Given - Provider: Pauline Duran RN) 0959 (Given - Provider: Yolanda Syed, BRANDEN) hydrALAZINE (Apresoline) tablet 25 mg 25 mg, oral, 3 times daily, First dose on Wed05/10/25 at 1000, For 99 days 0900 (Given - Provider: Cara Bullock RN)1600 (Not Given - Provider: Pauline Duran RN - Reason: Other - Comment: in prodecure)2240 (Given - Provider: Elvira Wheatley RN) 0944 (Given - Provider: Pauline Duran RN)1600 (Not Given - Provider: Yolanda Syed RN - Reason: Other - Comment: per provider)2241 (Given - Provider: Cee Watkins RN) 0918 (Given - Provider: Yolanda Syed, BRANDEN)1600 (Not Given - Provider: Yolanda Syed RN - Reason: Other - Comment: per provider)2200 (Canceled Entry - Provider: Automatic Discharge Provider - Comment: Automatically canceled at discontinue of medication order) insulin glargine (Lantus) injection vial 10 Units 10 Units, subcutaneous, 2 times daily, First dose on Wed05/17/25 at 1000, For 99 days 0959 (Given - Provider: Yolanda Syed RN)2200 (Canceled Entry - Provider: Automatic Discharge Provider - Comment: Automatically canceled at discontinue of medication order) insulin lispro (HumaLOG) injection 0-10 Units(Linked Group 1) 0-10 Units, subcutaneous, 3 times daily with meals, First dose on Sol 05/10/25 at 0800, For 99 days, BG less than 110 instructions: Hold Insulin. If BG less than 70, implement hypoglycemia orders., BG 110-150: 0, BG 151-200: 2, BG 201-250: 4, BG 251-300: 6, BG 301-350: 8, BG 351-400: 10, BG greater than 400 instructions: Call Physician 0900 (Not Given - Provider: Cara Bullock RN - Reason: NPO - Comment: hold for procedure, patient NPO)1200 (Not Given - Provider: Cara Bullock RN - Reason: NPO - Comment: NPO for procedure)1700 (Given - Provider: Pauline Duran RN) 0945 (Given - Provider: Pauline Duran RN)1251 (Given - Provider: Pauline Duran RN)1620 (Given - Provider: Yolanda Syed RN) 0911 (Given - Provider: Yolanda Syed RN)1225 (Given - Provider: Yolanda Syed RN)1735 (Given - Provider: Yolanda Syed RN) insulin lispro (HumaLOG) injection 0-8 Units(Linked Group 1) 0-8 Units, subcutaneous, Nightly, First dose on Sol 05/10/25 at 2200, For 99 days, BG less than 110 instructions: Hold Insulin. If BG less than 70, implement hypoglycemia orders, BG 110-150: 0, BG 151-200: 0, BG 201-250: 2, BG 251-300: 4, BG 301-350: 6, BG 351-400: 8, BG greater than 400 instructions: Call Physician 2199 (Not Given - Provider: Elvira Wheatley RN - Reason: Order parameters not met) 2236 (Given - Provider: Cee Watkins RN) 220 (Canceled Entry - Provider: Automatic Discharge Provider - Comment: Automatically canceled at discontinue of medication order) labetalol (Normodyne) tablet 300 mg 300 mg, oral, 3 times daily, First dose on Wed05/10/25 at 1000 0900 (Given - Provider: Cara Bullock RN)1600 (Not Given - Provider: Pauline Duran RN - Reason: Other - Comment: in procedure)2240 (Given - Provider: Elvira Wheatley RN) 0944 (Given - Provider: Pauline Duran RN)1620 (Given - Provider: Yolanda Syed, BRANDEN)2238 (Given - Provider: Cee Watkins RN) 0918 (Given - Provider: Yolanda Syed, RN)1551 (Given - Provider: Yolanda Syed, BRANDEN)2200 (Canceled Entry - Provider: Automatic Discharge Provider - Comment: Automatically canceled at discontinue of medication order) mometasone-formoterol (Dulera 100) 100-5 mcg/actuation inhaler 2 puff 2 puff, inhalation, 2 times daily RT, First dose on Wed05/15/25 at 1000, Rinse mouth with water after use to reduce aftertaste and incidence of candidiasis. Do not swallow. 1050 (Given - Provider: Cara Bullock RN)1999 (Canceled Entry - Provider: Maxine Rodgers RRT) 0932 (Given - Provider: Ness Alvarado, DELLA)2237 (Given - Provider: Cee Watkins, BRANDEN) 0959 (Given - Provider: Yolanda Syed, BRANDEN)1999 (Canceled Entry - Provider: Automatic Discharge Provider - Comment: Automatically canceled at discontinue of medication order) piperacillin-tazobactam (Zosyn) IVPB 4.5 g in 100 mL NS Mini-Bag Plus (COMPLETED)(Linked Group 2) 4.5 g, intravenous, at 200 mL/hr, Administer over 0.5 Hours, Once, On Wed05/16/25 at 1145, For 1 dose, Suspected Indication (Select all that apply): Pneumonia, Type of Pneumonia: Community-Acquired, Pseudomonas Aeruginosa Risk Factors: Recent hospitalization with greater than 72 hours of IV antibiotics 1251 (New Bag - Provider: Pauline Duran RN)1321 (Stopped - Provider: Pauline Duran RN) piperacillin-tazobactam (Zosyn) IVPB 4.5 g in 100 mL NS Mini-Bag Plus(Linked Group 2) 4.5 g, intravenous, at 25 mL/hr, Administer over 4 Hours, Every 8 hours, First dose on Wed05/16/25 at 1545, For 3 days, Suspected Indication (Select all that apply): Pneumonia, Type of Pneumonia: Community-Acquired, Pseudomonas Aeruginosa Risk Factors: Recent hospitalization with greater than 72 hours of IV antibiotics 1550 (New Bag - Provider: Yolanda Syed RN)1950 (Stopped - Provider: Cee Watkins RN) 0007 (New Bag - Provider: Cee Watkins RN)0407 (Stopped - Provider: Cee Watkins RN)0631 (New Bag - Provider: Cee Watkins RN)1031 (Stopped - Provider: Yolanda Syed, RN)1534 (New Bag - Provider: Yolanda Syed, RN)1934 (Due: Stopped - Provider: Yolanda Syed RN) prednisoLONE acetate (Pred-Forte) 1 % ophthalmic suspension 1 drop 1 drop, Right Eye, 2 times daily, First dose on Wed05/15/25 at 1000, For 99 days, SHAKE WELL 1050 (Given - Provider: Cara Bullock RN) 0111 (Given - Provider: Elvira Wheatley RN)0946 (Given - Provider: Pauline Duran RN)2200 (Not Given - Provider: Cee Watkins RN - Reason: Medication not available) 0919 (Given - Provider: Yolanda Syed, BRANDEN)2200 (Canceled Entry - Provider: Automatic Discharge Provider - Comment: Automatically canceled at discontinue of medication order) predniSONE (Deltasone) tablet 60 mg (COMPLETED) 60 mg, oral, Once, On Wed05/15/25 at 0700, For 1 dose 0603 (Given - Provider: Radha Ortiz RN) primidone (Mysoline) tablet 50 mg 50 mg, oral, 2 times daily, First dose on Wed05/15/25 at 1000, For 99 days 1051 (Given - Provider: Cara Bullock RN)2240 (Given - Provider: Elvira Wheatley RN) 0946 (Given - Provider: Pauline Duran RN)2238 (Given - Provider: Cee Watkins RN) 0918 (Given - Provider: Yolanda Syed, BRANDEN)2200 (Canceled Entry - Provider: Automatic Discharge Provider - Comment: Automatically canceled at discontinue of medication order) rivaroxaban (Xarelto) tablet 15 mg 15 mg, oral, Daily with evening meal, First dose (after last modification) on Wed05/16/25 at 1700, For 96 doses, Best administered with food or immediately before tube feedings. If ordered via NG or G-tube route, crush and mix with 50 mL water; give within 4 hours of mixing., Rivaroxaban indication: Non-valvular Atrial Fibrillation 1620 (Given - Provider: Yolanda Syed, BRNADEN) 1735 (Given - Provider: Yolanda Syed RN) spironolactone (Aldactone) tablet 25 mg 25 mg, oral, Daily, First dose on Wed05/10/25 at 1000, For 99 days 0829 (Given - Provider: Cara Bullock RN - Comment: ok per Manager [employer]) 0945 (Given - Provider: Pauline Duran RN) 0918 (Given - Provider: Yolanda Syed, BRANDEN) tamsulosin (Flomax) 24 hr capsule 0.4 mg 0.4 mg, oral, Daily with evening meal, First dose on Wed05/15/25 at 1700, For 99 days, Do not crush, chew, or split. 1700 (Canceled Entry - Provider: Pauline Duran RN - Comment: very lethargic and unable to take pillspost procedure) 1620 (Given - Provider: Yolanda Syed RN) 1735 (Given - Provider: Yolanda Syed RN) umeclidinium (Incruse Ellipta) 62.5 mcg/actuation inhalation 62.5 mcg 62.5 mcg (1 puff), inhalation, Daily RT, First dose on Wed05/15/25 at 1000, For 99 days 1050 (Given - Provider: Cara Bullock RN) 0800 (Not Given - Provider: Ness Alvarado, APPLICATION SUPPORT TECHNICIAN - Reason: Medication not available) 0800 (Not Given - Provider: Yolanda Syed RN - Reason: Medication not available) Continuous Medication Order 05/15/2025 05/16/2025 05/17/2025 heparin infusion 100 units/mL in D5W () 0-28 Units/kg/hr 74.1 kg (0-20.748 mL/hr, rounded to 0-20.7 mL/hr), intravenous, Continuous, Starting on Wed05/14/25 at 1530, For 2 days 2 hours, Initial Heparin rate (units/kg/hr): 15, PTT below 55s - Bolus heparin IV (units/kg): 0, PTT < 55 Maintenance Dose Adjustment (units/kg/hr): 2, PTT 55-69 Heparin Maintenance Dose Adjustment (units/kg/hr): 1, PTT 70-130 Maintenance dose adjustment (units/kg/hr): 0, PTT 131-170 Maintenance Dose Adjustment (units/kg/hr): -1, PTT 171-200 Maintenance Dose Adjustment (units/kg/hr): -2, PTT > 200 Maintenance Dose Adjustment (units/kg/hr): -2, PTT ABOVE 200 - Change current infusion: Hold infusion for 1 hour, then restart at rate shown above (2 units/kg/hr below current rate)., Indication: Cardiac/Stroke 0442 (Rate/Dose Change - Provider: Radha Ortiz RN)1759 (Stopped - Provider: Elvira Wheatley RN - Comment: Arrived to MICU from procedure without this medication infusing. Unsure of exact time medication was stopped in labor training manager or prior to labor training manager.)1800 (Canceled Entry - Provider: Elvira Wheatley RN - Comment: Cancelled from back documented administration.) 0021 (New Bag - Provider: Elvira Wheatley RN)0100 (Rate/Dose Verify - Provider: Elvira Wheatley RN)0200 (Rate/Dose Verify - Provider: Elvira Wheatley RN)0300 (Rate/Dose Verify - Provider: Elvira Wheatley RN)0400 (Rate/Dose Verify - Provider: Elvira Wheatley RN)0500 (Rate/Dose Verify - Provider: Elvira Wheatley RN)0600 (Rate/Dose Verify - Provider: Elvira Wheatley RN)0700 (Rate/Dose Verify - Provider: Elvira Wheatley RN)0800 (Rate/Dose Verify - Provider: Pauline Renee, RN)0833 (Rate/Dose Change - Provider: Pauline Duran RN)0900 (Rate/Dose Verify - Provider: Pauline Duran RN)1000 (Rate/Dose Verify - Provider: Pauline Duran RN)1100 (Rate/Dose Verify - Provider: Pauline Duran RN)1612 (Rate/Dose Verify - Provider: Yolanda Syed RN)1630 (Stopped - Provider: Yolanda Syed RN - Comment: [Order ends at this time. Document the following action when infusion is complete: Stopped]) PRN Medication Order 05/15/2025 05/16/2025 05/17/2025 acetaminophen (Tylenol) tablet 650 mg 650 mg, oral, Every 6 hours PRN, mild pain (1-3 pain score), Starting on Wed05/16/25 at 1533, For 99 days 1541 (Given - Provider: Yolanda Syed RN) 0911 (Given - Provider: Yolanda Syed RN) ceFAZolin (Ancef) 2 g in sodium chloride 0.9 % 50 mL IVPB (COMPLETED) Administer over 30 Minutes, Continuous PRN, Starting on Wed05/15/25 at 1323, Intraprocedure 1323 (New Bag - Provider: Colleen Del Cid RN)1839 (Stopped - Provider: Pauline Duran RN - Comment: done before pt came up to unit) dextrose 50 % in water (D50W) syringe 25 g(Linked Group 3) 25 g, intravenous, Every 15 min PRN, capillary blood glucose < 70 mg/dL and patient unable to take oral and has IV access, Starting on Sol 05/10/25 at 0411, For 99 days, - Recheck blood glucose 5 minutes after dextrose administration. - Repeat treatment as ordered until blood glucose is greater than or equal to 80 mg/dL. - Provide a snack/meal within 1 hour after correction of hypoglycemia if not NPO. - If patient NPO or on enteral tube feeds, contact physician for potential additional interventions(s) (i.e. 5% or 10% dextrose IV fluids or tube feeding bolus) diphenhydrAMINE (BENADryl) injection (CANCELED) As needed, Starting on Wed05/15/25 at 1313, Intraprocedure 1313 (Given - Provider: Colleen Del Cid RN) fentaNYL (Sublimaze) injection (CANCELED) As needed, Starting on e 05/15/25 at 1314, Intraprocedure 1314 (Given - Provider: Colleen Del Cid RN)1355 (Given - Provider: Colleen Del Cid RN)1420 (Given - Provider: Colleen Del Cid RN) glucose chewable tablet 24 g(Linked Group 3) 24 g, oral, Every 15 min PRN, capillary blood glucose < 70 mg/dL and patient alert and eating, Starting on Sol 05/10/25 at 0411, For 99 days, - Recheck blood glucose 5 minutes after dextrose administration. - Repeat treatment as ordered until blood glucose is greater than or equal to 80 mg/dL. - Provide a snack/meal within 1 hour after correction of hypoglycemia if not NPO. - If patient NPO or on enteral tube feeds, contact physician for potential additional interventions(s) (i.e. 5% or 10% dextrose IV fluids or tube feeding bolus) heparin (porcine) injection (CANCELED) As needed, Starting on Wed05/15/25 at 1331, Intraprocedure 1331 (Given - Provider: Colleen Del Cid RN)1342 (Given - Provider: Colleen Del Cid RN)1353 (Given - Provider: Colleen Del Cid RN)1408 (Given - Provider: Colleen Del Cid RN) heparin irrigation 2 units/mL in NS (CANCELED) As needed, Starting on Wed05/15/25 at 1313, Intraprocedure 1313 (Given - Provider: Mike Cisneros MD)1345 (Given - Provider: Mike Cisneros MD) iodixanol (VISIPaque) 320 mg iodine/mL injection (CANCELED) As needed, Starting on Wed05/15/25 at 1434, Intraprocedure 1434 (Given - Provider: Mike Cisneros MD) lidocaine (PF) (Xylocaine) 10 mg/mL (1 %) injection (CANCELED) As needed, Starting on Wed05/15/25 at 1313, Intraprocedure 1313 (Given - Provider: Mike Cisneros MD) melatonin tablet 2 mg 2 mg, oral, Nightly PRN, sleep, Starting on Wed05/13/25 at 1903, For 99 days midazolam (Versed) injection (CANCELED) As needed, Starting on Wed05/15/25 at 1313, Intraprocedure 1313 (Given - Provider: Colleen Del Cid RN)1355 (Given - Provider: Colleen Del Cid RN) polyethylene glycol (Glycolax) packet 17 g 17 g, oral, Daily PRN, constipation, Starting on Wed05/10/25 at 0405, For 99 days protamine injection (COMPLETED) Continuous PRN, Starting on Wed05/15/25 at 1437, Intraprocedure 1437 (New Bag - Provider: Colleen Del Cid RN - Comment: post TAVR)1840 (Stopped - Provider: Pauline Duran RN - Comment: stopped before pt came to unit) sodium chloride 0.9 % infusion (COMPLETED) Continuous PRN, Starting on Wed05/15/25 at 1313, Intraprocedure 1313 (New Bag - Provider: Colleen Del Cid RN)1840 (Stopped - Provider: Pauline Duran RN - Comment: stopped before pt came to unit) sodium chloride irrigation solution 0.9 % (CANCELED) As needed, Starting on Wed05/15/25 at 1344, Intraprocedure 1344 (Given - Provider: Colleen Del Cid RN - Comment: irrigation for TAVR prep table) verapamil (Isoptin) injection (CANCELED) As needed, Starting on Wed05/15/25 at 1311, Intraprocedure 1311 (Given - Provider: Mike Cisneros MD) Linked Groups Order Group 1: insulin lispro (HumaLOG) injection 0-10 UnitsJump to med 0-10 Units, subcutaneous, 3 times daily with meals, First dose on Wed05/10/25 at 0800, For 99 days, BG less than 110 instructions: Hold Insulin. If BG less than 70, implement hypoglycemia orders., BG 110-150: 0, BG 151-200: 2, BG 201-250: 4, BG 251-300: 6, BG 301-350: 8, BG 351-400: 10, BG greater than 400 instructions: Call Physician And insulin lispro (HumaLOG) injection 0-8 UnitsJump to med 0-8 Units, subcutaneous, Nightly, First dose on Wed05/10/25 at 2200, For 99 days, BG less than 110 instructions: Hold Insulin. If BG less than 70, implement hypoglycemia orders, BG 110-150: 0, BG 151-200: 0, BG 201-250: 2, BG 251-300: 4, BG 301-350: 6, BG 351-400: 8, BG greater than 400 instructions: Call Physician Group 2: piperacillin-tazobactam (Zosyn) IVPB 4.5 g in 100 mL NS Mini-Bag Plus (COMPLETED)Jump to med 4.5 g, intravenous, at 200 mL/hr, Administer over 0.5 Hours, Once, On Wed05/16/25 at 1145, For 1 dose, Suspected Indication (Select all that apply): Pneumonia, Type of Pneumonia: Community-Acquired, Pseudomonas Aeruginosa Risk Factors: Recent hospitalization with greater than 72 hours of IV antibiotics Followed by piperacillin-tazobactam (Zosyn) IVPB 4.5 g in 100 mL NS Mini-Bag PlusJump to med 4.5 g, intravenous, at 25 mL/hr, Administer over 4 Hours, Every 8 hours, First dose on Wed05/16/25 at 1545, For 3 days, Suspected Indication (Select all that apply): Pneumonia, Type of Pneumonia: Community-Acquired, Pseudomonas Aeruginosa Risk Factors: Recent hospitalization with greater than 72 hours of IV antibiotics Group 3: glucose chewable tablet 24 gJump to med 24 g, oral, Every 15 min PRN, capillary blood glucose < 70 mg/dL and patient alert and eating, Starting on Wed05/10/25 at 0411, For 99 days, - Recheck blood glucose 5 minutes after dextrose administration. - Repeat treatment as ordered until blood glucose is greater than or equal to 80 mg/dL. - Provide a snack/meal within 1 hour after correction of hypoglycemia if not NPO. - If patient NPO or on enteral tube feeds, contact physician for potential additional interventions(s) (i.e. 5% or 10% dextrose IV fluids or tube feeding bolus) Or dextrose 50 % in water (D50W) syringe 25 gJump to med 25 g, intravenous, Every 15 min PRN, capillary blood glucose < 70 mg/dL and patient unable to take oral and has IV access, Starting on Sol 05/10/25 at 0411, For 99 days, - Recheck blood glucose 5 minutes after dextrose administration. - Repeat treatment as ordered until blood glucose is greater than or equal to 80 mg/dL. - Provide a snack/meal within 1 hour after correction of hypoglycemia if not NPO. - If patient NPO or on enteral tube feeds, contact physician for potential additional interventions(s) (i.e. 5% or 10% dextrose IV fluids or tube feeding bolus) documented in this encounter Care Teams Primer Press Operator Relationship Specialty Start Date End Date Pj Sung MD [address] [place] [id number] PCP - General Family Medicine 05/10/25 Pj Sung MD [address] [place] [id number] 05/10/25 documented as of this encounter
--- OUTSIDE RECORDS SUMMARY | 2025-05-15 09:18 | XMS_ITS | Encounter Summary ---
Author Organization [facility] Address [address] [place] [address] Care Team Providers Care Behavioral Health Professional Name Role Phone Pj Sung MD Primary Care Provider [phone] Pj Sung MD Unavailable Encounter Details Date Type Department Care Team (Latest Contact Info) Description 05/15/2025 9:18 AM EDT Hospital Encounter [facility] Radiology External Films [address] [place] [phone] Discharge Disposition: Home or Self Care () Social History Tobacco Use Types Packs/Day Years Used Date Smoking Tobacco: Former Cigarettes Smokeless Tobacco: Never [facility] Utilities Answer Date Recorded In the past 12 months has [employer], gas, oil, or water [employer] threatened to shut off services in your [...] any time in the past 12 m [facility], were you homeless or living in a penitentiary (including now)? No 05/10/2025 Hunger Vital Sign [...] PM EDT documented as of this encounter Medications at Time of Discharge acetaminophen (Tylenol) 500 mg tablet Take 1,000 [...] 1 tablet every day by oral route. aspirin 81 mg EC tablet Take 81 mg by mouth in the morning. b complex 0.4 mg tablet Take 1 tablet by mouth in the morning. b complex vitamins capsule Take 1 capsule by mouth in the morning. bacitracin 500 unit/gram ointment Apply 1 Application topically two times daily. calcium polycarbophil (Fibercon) 625 mg tablet Take 1,250 mg by mouth in the morning. cholecalciferol (Vitamin D-3) 25 MCG (1000 UT) capsule Take 25 mcg by mouth in the morning. cholecalciferol (Vitamin D3) 25 MCG (1000 units) tablet Take 2,000 Units by mouth in the morning. cholecalciferol (Vitamin D3) 25 MCG (1000 UT) capsuleIndications: Vitamin D deficiency Take 5 capsules (125 mcg) by mouth in the morning. 150 capsule 11 01/03/2025 01/03/20 26 cloNIDine (Catapres) 0.1 mg tablet Take 2 tablets by mouth three times daily. cloNIDine (Catapres) 0.2 mg tablet Take 0.2 mg by mouth three times daily. dapagliflozin propanediol (Farxiga) 10 mgIndications:Acute diastolic congestive heart failure (CMS/HCC) Take 1 tablet (10 mg) by mouth in the morning. 05/18/2025 06/17/20 25 dicyclomine (Bentyl) 10 mg capsule Take 20 mg by mouth. dicyclomine (Bentyl) 10 mg capsule Take 10 mg by mouth two times daily. empagliflozin (Jardiance) 25 mg Take 25 mg by mouth in the morning. ezetimibe (Zetia) 10 mg tablet Take 1 tablet every day by oral route. ezetimibe (Zetia) 10 mg tablet Take 10 mg by mouth in the morning. ferrous sulfate 325 (65 Fe) MG tablet Take 65 mg by mouth with breakfast. fluticasone propion-salmeteroL 113 mcg-14 mcg/actuation aero powdr [...] 5 mg by mouth in the morning. linaGLIPtin (Tradjenta) 5 mg tablet Take 5 mg by mouth in the morning. loratadine (Claritin Reditabs) 10 mg disintegrating tablet Take 10 mg by mouth in the morning. loratadine (Claritin) 10 mg tablet Take 10 mg by mouth in the morning. magnesium oxide (Mag-Ox) 250 mg magnesium tablet Take 250 mg by mouth. 11/06/2020 magnesium oxide 500 mg magnesium tablet Take 500 mg by mouth three times daily. metFORMIN (Glucophage) 500 mg tablet Take 500 mg by mouth with breakfast. metFORMIN (Glucophage) 500 mg tablet Take 500 mg by mouth three times daily. metoclopramide (Reglan) 5 mg tablet Take 5 mg by mouth once daily as directed. bedtime omeprazole (PriLOSEC) [address] capsule Take 40 mg by mouth before breakfast. Do not crush or chew. omeprazole (PriLOSEC) [address] capsule Take 20 mg by mouth before breakfast. Do not crush or chew. pioglitazone (Actos) 45 mg tablet Take 1 tablet by mouth in the morning. pioglitazone (Actos) 45 mg tablet Take 45 mg by mouth in the morning. polyethylene glycol (Glycolax) oral powder Take 17 g by mouth if needed each day (constipation). potassium chloride CR (Klor-Con M10) 10 mEq ER tablet Take 20 mEq by mouth in the morning. Do not crush or chew. potassium chloride CR (Klor-Con M20) 20 mEq ER tablet Take 1 tablet every day by oral route for 90 days. prednisoLONE acetate (Pred-Forte) 1 % ophthalmic suspension INSTILL 1 DROP INTO RIGHT EYE 3 TIMES A DAY DIRECTED 12/12/2024 prednisoLONE acetate (Pred-Forte) 1 % ophthalmic suspension Administer 1 drop into the right eye two times daily. primidone (Mysoline) 50 mg tablet Take 2 tablets by mouth in the morning and at bedtime. primidone (Mysoline) 50 mg tablet Take 50 mg by mouth two times daily. psyllium (Metamucil) 0.52 gram capsule Take 1.52 g by mouth in the morning. rivaroxaban (Xarelto) 15 mg tablet Take 15 mg by mouth daily with evening meal. Take with food. rivaroxaban (Xarelto) 15 mg tablet Take 15 [...] 2 puffs every day by inhalation route. tiotropium (Spiriva Respimat) 1.25 mcg/actuation inhaler Inhale 2 puffs in the morning. amoxicillin-pot clavulanate (Augmentin) 875-125 mg tabletIndications:P leural effusion Take 1 tablet by mouth two times daily for 3 days. 05/17/2025 05/20/20 25 empagliflozin (Jardiance) 25 mg Take 25 mg by mouth in the morning. 05/17/20 25 hydrALAZINE (Apresoline) 25 mg tabletIndications:P rimary hypertension Take 1 tablet (25 mg) by mouth three times daily. 05/17/2025 05/17/20 25 documented as of this encounter Plan of Treatment Upcoming Encounters Date Type Department Care Team (Late st Contact Info) Description 06/18/2025 11:30 AM EDT Office Visit [facility] [address] [place] [address] Mike Cisneros [facility] [address] [facility] [address] [facility] [place] [address] 07/11/2025 1:30 PM EDT Follow-Up [facility] [address] [place], [place] [address] [place] [phone] Jeff Hutton MD [address] [place] [phone] documented as of this encounter Procedures Procedure Name Priority Date/Time Associated Diagnosis Comments CT TRANSFER OF OUTSIDE FILMS Routine 05/15/2025 9:18 AM EDT documented in this encounter Results * CT transfer of outside films (05/15/2025 9:18 AM EDT) Narrative IMAGING - 05/15/2025 9:18 AM EDT This order has been auto-finalized and does not contain a result. Kodak Perez MD IMG CT PROCEDURES Final Result IMAGING documented in this encounter Visit Diagnoses Not on filedocumented in this encounter Care Teams Behavioral Health Professional Relationship Specialty Start Date End Date Pj Sung MD [address] [place] [address] PCP - General Family Medicine 05/10/25 Pj Sung MD [address] [place] [id number] 05/10/25 documented as of this encounter
--- OUTSIDE RECORDS SUMMARY | 2025-05-15 09:19 | XMS_ITS | Encounter Summary ---
Author Organization [facility] Address [address] [place] [address] Care Team Providers Care [employer] Counter Associate Name Role Phone Pj Sung MD Primary Care Provider [phone] Pj Sung MD Unavailable Encounter Details Date Type Department Care Team (Latest Contact Info) Description 05/15/2025 9:19 AM EDT - 05/15/2025 11:59 PM EDT Hospital Encounter [facility] Radiology External Films [address] [place] [phone] Discharge Disposition: Home or Self Care () Social History Tobacco Use Types Packs/Day Years Used Date Smoking Tobacco: Former Cigarettes Smokeless Tobacco: Never [facility] Utilities Answer Date Recorded In the past 12 months has [employer], gas, oil, or water [employer] threatened to shut off services in your [...] any time in the past 12 m [facility], were you homeless or living in a retirement (including now)? No 05/10/2025 Hunger Vital Sign [...] Description 06/18/2025 11:30 AM EDT Office Visit [facility] [address] [place] [address] Mike Cisneros MD [address] [facility] [place] [address] 07/11/2025 1:30 PM EDT Follow-Up [facility] [address] [place] [phone] Jeff Hutton MD [address] [place] [phone] documented as of this encounter Procedures Procedure Name Priority Date/Time Associated Diagnosis Comments XR TRANSFER OF OUTSIDE FILMS Routine 05/15/2025 9:19 AM EDT documented in this encounter Results * XR transfer of outside films (05/15/2025 9:19 AM EDT) Narrative IMAGING - 05/15/2025 9:19 AM EDT This order has been auto-finalized and does not contain a result. Kodak Perez MD IMG XR PROCEDURES Final Result IMAGING documented in this encounter Visit Diagnoses Not on filedocumented in this encounter Care Teams [employer] Counter Associate Relationship Specialty Start Date End Date Pj Sung MD [address] [place] [address] PCP - General Family Medicine 05/10/25 Pj Sung MD [address] [place] [address] 05/10/25 documented as of this encounter
--- OUTSIDE RECORDS SUMMARY | 2025-05-15 11:00 | XMS_ITS | Encounter Summary ---
Author Organization [facility] Address [address] [place] [address] Care Team Providers Care Doughnut Glazier Name Role Phone Pj Sung MD Primary Care Provider [phone] Pj Sung MD Unavailable Reason for Visit * Auth/Cert (Routine) Specialty Diagnoses / Procedures Referred By Contnery t Referred To Contact Diagnoses Chest pain Chest Pain Procedures no coded services Estuardo Reed MD [address] [place] [address] Phone: tel: fax: [facility] [address] [place] [address] Phone: tel: fax: Referral ID Status Reason Start Date Expiration Date Visits Re quested Visits Authorized [id number] 1 1 Encounter Details Date Type Department Care Team (Late st Contact Info) Description 05/15/2025 11:00 AM EDT - 05/15/2025 1:30 PM EDT Surgery [facility] Vascular Lab [address] [place] [address] Mike Cisneros MD [address] [facility] [address] [facility] [place] [id number] TAVR Social History Tobacco Use Types Packs/Day Years Used Date Smoking Tobacco: Former Cigarettes Smokeless Tobacco: Never Tobacco Cessation:Counseling Given: Not Answered [facility] Utilities Answer Date Recorded In the past 12 months has th e electric, gas, oil, or water company threatened to shut off services in your [...] any time in the past 12 m [facility], were you homeless or living in a prison (including now)? No 05/10/2025 Hunger Vital Sign [...] Sign Reading Time Taken Comments Blood Pressure 122/68 05/15/2025 11:52 AM EDT Pulse 98 05/15/2025 11:52 AM EDT Temperature 36.6 C (97.9 F) 05/15/2025 11:52 AM EDT Respiratory Rate 15 05/15/2025 11:52 AM EDT Oxygen Saturation 98% 05/15/2025 1:07 PM EDT Inhaled Oxygen Concentration - - Weight 73.9 kg (163 lb) 05/15/2025 5:12 AM EDT Height 182.8 cm (5' 11.97 ) 05/10/2025 3:00 AM E DT Body Mass Index 21.83 05/10/2025 3:00 AM EDT documented in this encounter Functional Status * Suicidal Ideation Question Answer Date of Assessment Author 1. Wish to be (Lifetime) No 05/10/2025 2:56 AM EDT Karen Paula, BRANDEN 2. Non-Specific Active Suici mohsen Thoughts (Lifetime) No 05/10/2025 2:56 AM EDT Karen Paula, BRANDEN documented as of this encounter Discharge Summaries [...] was admitted as a direct transfer from [place] on 05/10/2025 for acute on chronic heart failure. 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 He presented to the ED on the advice of his physician following an increase in lower extremity edema with associated labs showing a BNP 6200. In the [place] ED he was found to have pulmonary vascular congestion with right sided pleural effusion on chest x-ray, and found to be hypertensive at 190/68, and EKG showed A-fib, he was initially managed medically with lasix and antihypertensives prior to transfer. Patient follows up with Dr. Bland who had scheduled right heart cath on 05/10/2025. At [facility] echo was performed which was unable to [...] Consultations During Admission: Cardiology and cardiothoracic surgery Dear MD Sung Ronald is advised to follow up with you within 1-2 weeks. Items to follow up in ambulatory setting: CHEST X-RAY in one week Follow-up with: Cardiology and Pulmonary Scheduled appointments: Future Appointments Date Time Provider Department Center 05/28/2025 2:20 PM Ruy Amanda CNP MILKA Beckett 06/15/2025 10:30 AM [facility] CV ECHO ROOM 2 [facility] [place] [facility] 06/18/2025 11:30 AM Mike Cisneros MD [...] iodinated contrast media, nitroglycerin, and simvastatin. Disposition: [facility] Facility (03) Discharge Condition: Stable Code Status: [...] instructed and follow up with cardiology at [facility] documented in this encounter Medications at Time [...] morning. 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 Patient had history of stroke 4 months back and was in rehab patient has been having progressive lower extremity edema for few days. Patient was advised to increase his Lasix from 20 to 40 mg and blood work was done which showed BNP 6214 and was advised to go to the ED. In [place] ED chest x-ray showed pulmonary vascular congestion [...] 146 QT Interval 424 QTC CALCULATION(BAZETT) 504 R-Tipton -56 T Wave Tipton 106 Impression Atrial fibrillation Left axis deviation Left bundle branch block Abnormal ECG When compared with ECG of 16-MAY-2025 10:06, (unconfirmed) No significant change was found Confirmed by Kasandra DELAROSA, GERI Penn (57) on 05/16/2025 4:16:44 PM Limited Echo (TTE) w/wo Limited Doppler, Color Flow, Imaging Agent, Strain, 3D, Bubble Study 1 1 [place] [facility] Heart Station [address] [place] [address] [phone] (fax) Echocardiogram-[facility] Name: NADIR BETH Study Date: 05/17/2025 08:04 AM B/P: 115 mmHg/40 mmHg HR: Date of : 1940 Location: [facility] Height: 71 in. Age: 85 year(s) Patient [...] unchanged from 05/16/25. Procedure Staff Reading Group: [facility] Claims Examiner: Albert Bee RDCS Ordering Physician: NICOLE REYES [...] Continue spironolactone 25 mg daily #Paroxysmal A-fib [id number] = 5 (HTN, age, HF, CVA) Denies [...] was made to ensure accuracy, some unintentional boiler operators supervisor errors may be present. Ruy Amanda [facility] Cardiovascular Medicine [1] History reviewed. No pertinent past medical history. [2] History reviewed. No pertinent surgical history. [3] Social History Tobacco Use Smoking status: Former Types: Cigarettes Smokeless tobacco: Never [4] Allergies Allergen Reactions Aminolevulinic Acid Hcl Unknown Iodinated Contrast Media Unknown Nitroglycerin Other hypotension Simvastatin Unknown * JIN Haas - 05/17/2025 10:38 AM EDT Discharge Planning MATHEW sent updates through [facility] to [facility]. Patient is medically ready for discharge. MATHEW confirmed facility is able to accept patient today. MATHEW set up ambulance transport with [facility] for 7:35 PM. Call report # ([phone]. Patient and his family notified. Treatment team [...] included. Cardiothoracic Surgery Progress Note 05/17/2025 Room: [address] [place] [address] Subjective Sitting in bed. No complaints. Denies [...] Problems: Primary hypertension Acute congestive heart failure ([facility]) History of CVA (cerebrovascular accident) Type 2 diabetes mellitus, with long-term current use of insulin ([facility]) Other hyperlipidemia Chronic atrial fibrillation ([facility]) Chronic kidney disease Elevated troponin S/P TAVR (transcatheter aortic valve replacement) Aortic stenosis, severe Angina pectoris, unstable ([facility]) Nonrheumatic aortic valve stenosis Plan: S/P TAVR [...] Cardiothoracic Surgery Inpatient from 8am-4pm call Ascom #[phone]. Only use [email or web address] chat for general questions. If unable to reach Ascom Number call hospital tractor trailer operator for Cardiothoracic Provider Baling Press Operator. Cardiothoracic Surgery outpatient Office Number [phone]. Cardiothoracic Surgery outpatient . * Nitin Raza [...] was admitted as a direct transfer from [place] on 05/10/2025 for acute on chronic heart failure. 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 He presented to the ED on the advice of his physician following an increase in lower extremity edema with associated labs showing a BNP 6200. In the [place] ED he was found to have pulmonary vascular congestion with right sided pleural effusion on chest x-ray, and found to be hypertensive at 190/68, and EKG showed A-fib, he was initially managed medically with lasix and antihypertensives prior to transfer. Patient follows up with Dr. Bland who had scheduled right heart cath on 05/10/2025. At [facility] echo was performed which was unable to [...] Intake/Output Summary (Last 24 hours) at 05/17/2025 0713 Last data filed at 05/17/2025 0631 Gross per 24 hour Intake 672.71 ml Output 500 ml Net 172.71 ml Ventilator: Lab Results ABG: No results found for: PHART , XPK0YNQ , PO2ART , IAL4HQJ , IONCALART No results found for: PHVEN , WYO7ZKK , PO2VEN , YQI8AVN , IONCALVEN CBC: Results from last 7 [...] Agent, Strain, 3D, Bubble Study 1 1 [place] [facility] Heart Station [address] [id number] [phone] (fax) Echocardiogram-[facility] Name: NADIR BETH Study Date: 05/16/2025 10:05 AM B/P: 125 mmHg/44 mmHg HR: Date of : 1940 Location: [facility] Height: 71 in. Age: 85 year(s) Patient [...] with tamponade physiology. Procedure Staff Reading Group: [facility] Claims Examiner: Katelyn Martinez RDCS Ordering Physician: Shamar Nolan [...] Lines: PIV Diet: regular Fluids: PO Disposition: [facility] [place] Code Status: Full Code The patient's care was discussed with the attending physician, Nikolas Gonzalez MD. Please see attendingattestation for additional details. Nitin Raza MD Please reach out to the Primary Pulmonary Service if you have any questions or concerns: Primary Assembler Motor Vehicle: [phone] Primary Pulmonary Senior Resident: [phone] Cosigned by Nikolas Gonzalez MD at 05/23/2025 [...] anticoagulation should be held. Nikolas Gonzalez MD [facility] Pulmonary and Critical Care Medicine [...] [facility] 85 [facility] 1940 [id number] Date of Admission - 05/10/2025 2:37 AM HPI/Hospital Course Subjective Nadir Beth is an 85 y.o. male with a PMH of HFpEF, paroxysmal A-fib on Xarelto, CVA, T2DM, hypertension, renal artery stenosis left renal stent, and hyperlipidemia who was admitted as a directtransfer from [place] on 05/10/2025 for acute on chronic heart failure. 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 He presented to the ED on the advice of his physician following an increase in lower extremity edema with associated labs showing a BNP 6200. In the [place] ED he was found to have pulmonary vascular congestion with right sided pleural effusion on chest x-ray, and found to be hypertensive at 190/68, initially managed medically with lasix and antihypertensives prior to transfer. At [facility] echo was performed which was unable to [...] ABG: No results found for: PHART , GOH3GOA , PO2ART , GSL1FRB , IONCALART No results found for: PHVEN , YOM9DSN , PO2VEN , GQI5OMH , IONCALVEN CBC: Results from last 7 [...] months back, renal artery stenosis transferred from [facility] for acute on chronic heart failure. Patient had history of stroke 4 months back and was in rehab patient has been having progressive lower extremity edema for few days. Patient was advised to increase his Lasix from 20 to 40 mg and blood work was done which showed BNP 6214 and was advised to go to the ED. In [place] ED chest x-ray showed pulmonary vascular congestion [...] 146 QT Interval 424 QTC CALCULATION(BAZETT) 504 R-Tipton -56 T Wave Tipton 106 Impression Atrial fibrillation Left axis deviation [...] Kasandra DELAROSA SAMER J. (57) on 05/16/2025 4:16:44 PM ECG 12 lead Atrial fibrillation with a competing junctional pacemaker with premature ventricular or aberrantly conducted complexes Left axis deviation Left bundle branch block Abnormal ECG When compared with ECG of 15-MAY-2025 14:37, No significant change was found Confirmed by Kasandra DELAROSA SAMER J. (57) on 05/16/2025 4:16:18 PM Limited Echo (TTE) w/wo Limited Doppler, Color Flow, Imaging Agent, Strain, 3D, Bubble Study 1 1 [place] [facility] Heart Station [address] [facility] [place] [address] [phone] (fax) Echocardiogram-[facility] Name: NADIR BETH Study Date: 05/16/2025 10:05 AM B/P: 125 mmHg/44 mmHg HR: Date of : 1940 Location: [facility] Height: 71 in. Age: 85 year(s) Patient [...] with tamponade physiology. Procedure Staff Reading Group: [facility] Claims Examiner: Katelyn Martinez RDCS Ordering Physician: Shamar Nolan [...] Continue spironolactone 25 mg daily #Paroxysmal A-fib [id number] = 5 (HTN, age, HF, CVA) Denies [...] was made to ensure accuracy, some unintentional boiler operators supervisor errors may be present. Ruy Amanda [facility] Cardiovascular Medicine [1] History reviewed. No pertinent past medical history. [2] History reviewed. No pertinent surgical history. [3] Social History Tobacco Use Smoking status: Former Types: Cigarettes Smokeless tobacco: Never [4] Allergies Allergen Reactions Aminolevulinic Acid Hcl Unknown Iodinated Contrast Media Unknown Nitroglycerin Other hypotension Simvastatin Unknown * Ricky Ferrari CNP - 05/16/2025 8:25 AM EDT Images from the original note were not included. Cardiothoracic Surgery Progress Note 05/16/2025 Room: [facility]/3221- Subjective Nadir Beth is a 85 y.o. male [...] (TTE) limited Result Date: 05/15/2025 1 1 [place] [facility] Heart Station [address] [place] [address] [phone] (fax) Echocardiogram-[facility] Name: NADIR BETH Study Date: 05/15/2025 12:46 PM B/P: 171 mmHg/100 mmHg HR: 87 bpm Date of : 1940 Location: [facility] Height: 72 in. Age: 85 year(s) Patient [...] effusion is seen. Procedure Staff Reading Group: [facility] Claims Examiner: SEAN Bailey, RDCS Ordering Physician: PROMISE PELAEZ Complete Echo (TTE) w/wo Imaging Agent, Strain, 3D, Bubble Study Result Date: 05/10/2025 1 1 [facility] Heart Station [address] [place] [address] [phone] (fax) Echocardiogram-[facility] Name: NADIR BETH Study Date: 05/10/2025 09:19 AM B/P: 178 mmHg/92 mmHg HR: 104 bpm Date of : 1940 Location: [facility] Height: 72 in. Age: 85 year(s) Patient [...] effusion is seen. Procedure Staff Reading Group: [facility] Claims Examiner: SEAN Bailey, RDCS Ordering Physician: ESTUARDO REED Electronically signed by MD Geri Delarosa on05/10/2025 at 10:24 AM Assessment/Plan Principal Problem: Chest pain Active Problems: Primary hypertension Acute congestive heart failure (CMS/HCC) History of CVA (cerebrovascular accident) Type 2 diabetes mellitus, with long-term current use of insulin (CMS/[facility]) Other hyperlipidemia Chronic atrial fibrillation (CMS/HCC) Chronic kidney disease Elevated troponin S/P TAVR (transcatheter aortic valve replacement) Aortic stenosis, severe Angina pectoris, unstable (CMS/[facility]) Nonrheumatic aortic valve stenosis 85 y.o male [...] Cardiothoracic Surgery Inpatient from 8am-4pm call Ascom #[phone]. Only use [email or web address] chat for general questions. If unable to reach Ascom Number call hospital tractor trailer operator for Cardiothoracic Provider Baling Press Operator. Cardiothoracic Surgery outpatient Office Number [phone]. Cardiothoracic Surgery outpatient . Cosigned by Negro [...] as appropriate. Check No Charge Time attempted: 1515 Cosigned by Connie Dela Cruz PT at [...] included. Hospital Medicine Daily Progress Note - 05/15/2025 1:08 PM; Room: [address] [place] [address] Admission: 05/10/2025 2:37 AM; Length of stay: 5 days THE HOSPITALIST TEAM PREFERS TO USE [employer] CHAT FOR NON-URGENT COMMUNICATION 7AM- 7PM. IF I DO NOT RESPOND WITHIN 20 MINUTES OR URGENT MATTERS, PLEASE CALL THROUGH THE BACK TENDER CLOTH PRINTING. FROM 7PM-7AM, PLEASE PAGE [phone](COVR). Code Status: Full Code Barriers to Discharge: [...] mellitus, with long-term current use of insulin ([facility]) Continue sliding scale insulin A1c came back of 9.3 Other hyperlipidemia Continue Zetia Chronic atrial fibrillation ([facility]) CHADS2 DS vascular score is 7 currently [...] LDL 118 05/11/2025 No results found for: [id number] , IRON , TIBC , C3 , C4 , SHERRY , CANCA , ASO , PSA , CEA , CA125 , CA199 , AFP , CA153 Imaging Cardiac catheterization PROCEDURE PHYSICIAN: Shamar Nolan MD Clinical Presentation: 85 y.o. Male with history of A-fib on Xarelto, hypertension, HFpEF, CKD, recent history of CVA 4 months ago, renal artery stenosis transferred from [facility] for acute on chronic HFpEF and [...] and a micropuncture access technique a 6 English sheath was placed in the right internal jugular vein. The Garza catheter was advanced under fluoroscopic and hemodynamic monitoring to the right atrium. Pressure obtained of the right atrium, right ventricle, pulmonary artery, pulmonary capillary position. Oxygen saturation drawn for the pulmonary artery and Mary cardiac with a cardiac index were calculated. 1% lidocaine was infiltrated over the left radial artery. A 6-English Terumo Glidesheath slender was placed in left [...] carotid artery. Discharge Planning Expected Discharge Disposition: [facility] Facility (03) PT Discharge Recommendations: Patient is able to return to prior living environment (presents from SNF) OT Discharge Recommendations: Patient is able to return to prior living environment Signed Julio Cesar Medina MD [facility] Medicine 05/15/2025 1:08 PM * Ruy Amanda, NUCLEAR WORKER TECHNICIAN - 05/15/2025 9:45 AM EDT Images from the original note were not included. Cardiology Inpatient Progress Note Subjective Reason for consult: Acute on chronic HFpEF, hypertension urgency, TAVR. HPI: Nadir Beth is a 85 y.o. year old male with significant medical history of A-fib on Xarelto, hypertension, HFpEF, CKD, recent history of CVA 4 months back, renal artery stenosis transferred from [facility] for acute on chronic heart failure. Patient had history of stroke 4 months back and was in rehab patient has been having progressive lower extremity edema for few days. Patient was advised to increase his Lasix from 20 to 40 mg and blood work was done which showed BNP 6214 and was advised to go to the ED. In [place] ED chest x-ray showed pulmonary vascular congestion [...] -- -- 84 14 94 % -- 05/14/25 2039 127/50 -- -- 66 -- -- -- 05/14/25 2000 110/84 -- -- 68 -- -- -- [...] 102 QT Interval 414 QTC CALCULATION(BAZETT) 437 R-Tipton -30 T Wave Tipton 28 Impression Atrial fibrillation Left axis deviation Minimal voltage criteria for LVH, may be normal variant ( Tipton product ) Anterior infarct , age undetermined [...] Continue spironolactone 25 mg daily #Paroxysmal A-fib [id number] = 5 (HTN, age, HF, CVA) Denies [...] was made to ensure accuracy, some unintentional boiler operators supervisor errors may be present. Ruy Amanda [facility] Cardiovascular Medicine [1] History reviewed. No pertinent past medical history. [2] History reviewed. No pertinent surgical history. [3] Social History Tobacco Use Smoking status: Former Types: Cigarettes Smokeless tobacco: Never [4] Allergies Allergen Reactions Aminolevulinic Acid Hcl Unknown Iodinated Contrast Media Unknown Nitroglycerin Other hypotension Simvastatin Unknown * Mulu Daly, WM - 05/14/2025 3:51 PM EDT Physical Therapy [...] implement solutions Communication: (decreased communication with this MATHEMATICAL ENGINEERING TECHNICIAN d/t lethargy) General Assessment General Assessment Hearing: [place] - family reports he has hearing aids [...] Clicks T-Score: 17 Assessment/Plan PT Assessment PT Assessment/MATHEMATICAL ENGINEERING TECHNICIAN Summary: Pt limited by lethargy this session. He will benefit from cont skilled PT to cont to address overall balance, strength andd mobility deficits. Prognosis: Fair Evaluation/Treatment Tolerance: Patient limited by fatigue Medical Staff Made Aware: Yes PT Education/Comments: Pt returned to bed at end of session and remains there upon this MATHEMATICAL ENGINEERING TECHNICIAN exitingroom. Tray table and call light are [...] for independent mobility. 05/10/25 05/24/25 -- Mulu Daly PTA Time in/out: 1341 - 1404 [1] Patient Active Problem List Diagnosis Primary hypertension Acute congestive heart failure ([facility]/HCC) History of CVA (cerebrovascular accident) Type 2 diabetes mellitus, with long-term current use of insulin ([facility]) Other hyperlipidemia Chronic atrial fibrillation ([facility]/HCC) Chest pain Angina pectoris, unstable ([facility]) Chronic kidney disease Elevated troponin Cosigned by [...] from the original note were not included. [facility] Daily Progress Note - 05/14/2025 12:11 PM; Room: [address] [place] [address] Admission: 05/10/2025 2:37 AM; Length of stay: 4 days THE HOSPITALIST TEAM PREFERS TO USE [employer] CHAT FOR NON-URGENT COMMUNICATION 7AM- 7PM. IF I DO NOT RESPOND WITHIN 20 MINUTES OR URGENT MATTERS, PLEASE CALL THROUGH THE BACK TENDER CLOTH PRINTING. FROM 7PM-7AM, PLEASE PAGE [phone](COVR). Code Status: Full Code Barriers to Discharge: [...] mellitus, with long-term current use of insulin ([facility]) Continue sliding scale insulin A1c came back of 9.3 Other hyperlipidemia Continue Zetia Chronic atrial fibrillation ([facility]) CHADS2 DS vascular score is 7 currently [...] from last 7 days Lab Units 05/13/25 0343 05/11/25 0427 WBC AUTO 10*3/uL 10.18 11.58* HEMOGLOBIN g/dL 9.8* 9.9* HEMATOCRIT % 31.3* 31.8* MCV fL 82.4 82.8 PLATELETS AUTO 10*3/uL 287 312 Chemistry: Results from last 7 days Lab Units 05/14/25 0338 05/13/25 0343 05/12/25 0346 05/11/25 0427 05/10/25 0454 SODIUM mmol/L 138 138 138 < [...] last 7 days Lab Units 05/14/25 0705 05/13/255 05/13/25 1644 05/13/25 1137 05/13/25 0704 05/12/252003 POCT GLUCOSE mg/dL 209* 219* 277* 274* 222* 275* Historical Values: (Includes values prior to this admission) Lab Results Component Value Date TSH 1.34 05/10/2025 HDL 69 05/11/2025 LDL 118 05/11/2025 No results found for: [id number] , IRON , TIBC , C3 , C4 , SHERRY , CANCA , ASO , PSA , CEA , CA125 , CA199 , AFP , CA153 Imaging Cardiac catheterization PROCEDURE PHYSICIAN: Shamar Nolan MD Clinical Presentation: 85 y.o. Male with history of A-fib on Xarelto, hypertension, HFpEF, CKD, recent history of CVA 4 months ago, [facility] stenosis [facility] [facility] for acute on chronic HFpEF and [...] and a micropuncture access technique a 6 English sheath was placed in the right internal jugular vein. The Garza catheter was advanced under fluoroscopic and hemodynamic monitoring to the right atrium. Pressure obtained of the right atrium, right ventricle, pulmonary artery, pulmonary capillary position. Oxygen saturation drawn for the pulmonary artery and Mary cardiac with a cardiac index were calculated. 1% lidocaine was infiltrated over the left radial artery. A 6-English Terumo Glidesheath slender was placed in left [...] both patent. Discharge Planning Expected Discharge Disposition: [facility] Facility (03) PT Discharge Recommendations: Patient is able to return to prior living environment (Presents from SNF) OT Discharge Recommendations: Patient is able to return to prior living environment Signed Julio Cesar Medina MD [facility] Medicine 05/14/2025 12:11 PM * DEBRA [...] friendly and cooperative Session Comments: Upon arrival chief underwriter noted pts male purwick had leaked. Brief [...] Assistance: Contact guard Static Sitting-Comment/Number of Minutes: Customs House Broker noted posterior lean while utilizing B UE's in bathing task. Tactile cues required to chief underwriter self Dynamic Sitting Balance Dynamic Sitting Balance [...] Eating meals?: None (Independent) Total Score OT [facility]: 21 Assessment/Plan OT Assessment OT Impairments: Decreased ADL status, Decreased endurance, Decreased functional mobility, DecreasedIADLs OT Assessment/REMEDIATION CONSULTANT Summary: Pt is progressing toward goals but [...] unstable (CMS/HCC) Chronic kidney disease Elevated troponin Cosigned by [...] months back, renal artery stenosis transferred from [facility] for acute on chronic heart failure. Patient had history of stroke 4 months back and was in rehab patient has been having progressive lower extremity edema for few days. Patient was advised to increase his Lasix from 20 to 40 mg and blood work was done which showed BNP 6214 and was advised to go to the ED. In [place] ED chest x-ray showed pulmonary vascular congestion [...] Objective 12-24 hour telemetry reviewed: A fib, average 71 bpm. CURRENT MEDS: aspirin, 81 [...] months ago, renal artery stenosis transferred from [facility] for acute on chronic HFpEF and [...] and a micropuncture access technique a 6 English sheath was placed in the right internal jugular vein. The Garza catheter was advanced under fluoroscopic and hemodynamic monitoring to the right atrium. Pressure obtained of the right atrium, right ventricle, pulmonary artery, pulmonary capillary position. Oxygen saturation drawn for the pulmonary artery and Mary cardiac with a cardiac index were calculated. 1% lidocaine was infiltrated over the left radial artery. A 6-English Terumo Glidesheath slender was placed in left [...] 21--> 26 last on 05/10/2025 #Paroxysmal A-fib [id number] = 5 (HTN, age, HF, CVA) Denies [...] was made to ensure accuracy, some unintentional boiler operators supervisor errors may be present. Ruy Amanda [facility] Cardiovascular Medicine [1] History reviewed. No pertinent past medical history. [2] History reviewed. No pertinent surgical history. [3] Social History Tobacco Use Smoking status: Former Types: Cigarettes Smokeless tobacco: Never [4] Allergies Allergen Reactions Aminolevulinic Acid Hcl Unknown Iodinated Contrast Media Unknown Nitroglycerin Other hypotension Simvastatin Unknown * Paradise Garrison - 05/14/2025 9:17 AM EDT discharge planning: return to [facility] 0917 updates sent to [facility], via [employer] system [address]; notice sent to SNF, via [employer] system, with request to confirm bed availability today 1028 SNF has bed today but Discharge Order has been removed for Patient to have TAVR tomorrow; SNF notified via [employer] system discharge barriers: [] no insurance precert needed for SNF, but confirm bed at discharge [] * Julio Cesar Medina MD - 05/13/2025 10:51 AM EDT Images from the original note were not included. Hospital Medicine Daily Progress Note - 05/13/2025 10:51 AM; Room: [address] [place] [address] Admission: 05/10/2025 2:37 AM; Length of stay: 3 days THE HOSPITALIST TEAM PREFERS TO USE [employer] CHAT FOR NON-URGENT COMMUNICATION 7AM- 7PM. IF I DO NOT RESPOND WITHIN 20 MINUTES OR URGENT MATTERS, PLEASE CALL THROUGH THE BACK TENDER CLOTH PRINTING. FROM 7PM-7AM, PLEASE PAGE [phone](COVR). Code Status: Full Code Barriers to Discharge: [...] daily and labetalol Acute congestive heart failure ([facility]) Acute on chronic heart failure with preserved [...] mellitus, with long-term current use of insulin ([facility]) Continue sliding scale insulin A1c came back of 9.3 Other hyperlipidemia Continue Zetia Chronic atrial fibrillation ([facility]) CHADS2 DS vascular score is 7 currently [...] from last 7 days Lab Units 05/13/25 0343 05/11/25 0427 WBC AUTO 10*3/uL 10.18 11.58* HEMOGLOBIN g/dL 9.8* 9.9* HEMATOCRIT % 31.3* 31.8* MCV fL 82.4 82.8 PLATELETS AUTO 10*3/uL 287 312 Chemistry: Results from last 7 days Lab Units 05/13/25 0343 05/12/25 0346 05/11/25 0427 05/10/25 0454 SODIUM mmol/L 138 138 140 139 POTASSIUM mmol/L 3.5 3.5 4.2 3.6 CHLORIDE mmol/L 99 99 101 101 CO2 mmol/L BUN mg/dL 32* 36* 31* 28* CREATININE [...] LDL 118 05/11/2025 No results found for: [id number] , IRON , TIBC , C3 , C4 , SHERRY , CANCA , ASO , PSA , CEA , CA125 , CA199 , AFP , CA153 Imaging Cardiac catheterization PROCEDURE PHYSICIAN: Shamar Nolan MD Clinical Presentation: 85 y.o. Male with history of A-fib on Xarelto, hypertension, HFpEF, CKD, recent history of CVA 4 months ago, renal artery stenosis transferred from [facility] for acute on chronic HFpEF and [...] and a micropuncture access technique a 6 English sheath was placed in the right internal jugular vein. The Garza catheter was advanced under fluoroscopic and hemodynamic monitoring to the right atrium. Pressure obtained of the right atrium, right ventricle, pulmonary artery, pulmonary capillary position. Oxygen saturation drawn for the pulmonary artery and Mary cardiac with a cardiac index were calculated. 1% lidocaine was infiltrated over the left radial artery. A 6-English Terumo Glidesheath slender was placed in left [...] both patent. Discharge Planning Expected Discharge Disposition: [facility] (03) PT Discharge Recommendations: Patient is able to return to prior living environment (Presents from SNF) OT Discharge Recommendations: Patient is able to return to prior living environment Signed Julio Cesar Medina MD [facility] 05/13/2025 10:51 AM * Ruy [...] months back, renal artery stenosis transferred from [facility] for acute on chronic heart failure. Patient had history of stroke 4 months back and was in rehab patient has been having progressive lower extremity edema for few days. Patient was advised to increase his Lasix from 20 to 40 mg and blood work was done which showed BNP 6214 and was advised to go to the ED. In [place] ED chest x-ray showed pulmonary vascular congestion [...] months ago, renal artery stenosis transferred from [facility] for acute on chronic HFpEF and [...] and a micropuncture access technique a 6 English sheath was placed in the right internal jugular vein. The Garza catheter was advanced under fluoroscopic and hemodynamic monitoring to the right atrium. Pressure obtained of the right atrium, right ventricle, pulmonary artery, pulmonary capillary position. Oxygen saturation drawn for the pulmonary artery and Mary cardiac with a cardiac index were calculated. 1% lidocaine was infiltrated over the left radial artery. A 6-English Terumo Glidesheath slender was placed in left [...] Outpatient TAVR eval / workup #Paroxysmal A-fib [id number] = 5 (HTN, age, HF, CVA) Denies [...] Overview: Outpatient TAVR eval / workup ---> [facility] recommends TAVR Transitioning to oral Lasix 40 mg BID today - may consider increasing or adding midday dose if signs of congestion recur Continue daily weights and strict I's and O's Continue to monitor electrolytes, renal function This note was partially composed using voice recognition software. While every effort was made to ensure accuracy, some unintentional boiler operators supervisor errors may be present. Ruy Amanda [facility] Cardiovascular Medicine [1] History reviewed. [...] included. Hospital Medicine Daily Progress Note - 05/12/2025 12:25 PM; Room: [address] [place] [address] Admission: 05/10/2025 2:37 AM; Length of stay: 2 days THE HOSPITALIST TEAM PREFERS TO USE [employer] CHAT FOR NON-URGENT COMMUNICATION 7AM- 7PM. IF I DO NOT RESPOND WITHIN 20 MINUTES OR URGENT MATTERS, PLEASE CALL THROUGH THE BACK T[employer]. FROM 7PM-7AM, PLEASE PAGE [phone](COVR). Code Status: Full Code Barriers to Discharge: [...] daily and labetalol Acute congestive heart failure ([facility]) Acute on chronic heart failure with preserved [...] mellitus, with long-term current use of insulin ([facility]) Continue sliding scale insulin A1c came back of 9.3 Other hyperlipidemia Continue Zetia Chronic atrial fibrillation ([facility]) CHADS2 DS vascular score is 7 currently [...] LDL 118 05/11/2025 No results found for: [id number] , IRON , TIBC , C3 , C4 , SHERRY , CANCA , ASO , PSA , CEA , CA125 , CA199 , AFP , CA153 Imaging Cardiac catheterization PROCEDURE PHYSICIAN: Shamar Nolan MD Clinical Presentation: 85 y.o. Male with history of A-fib on Xarelto, hypertension, HFpEF, CKD, recent history of CVA 4 months ago, renal artery stenosis transferred from [facility] for acute on chronic HFpEF and [...] and a micropuncture access technique a 6 English sheath was placed in the right internal jugular vein. The Garza catheter was advanced under fluoroscopic and hemodynamic monitoring to the right atrium. Pressure obtained of the right atrium, right ventricle, pulmonary artery, pulmonary capillary position. Oxygen saturation drawn for the pulmonary artery and Mary cardiac with a cardiac index were calculated. 1% lidocaine was infiltrated over the left radial artery. A 6-English Terumo Glidesheath slender was placed in left [...] both patent. Discharge Planning Expected Discharge Disposition: [facility] (03) PT Discharge Recommendations: Patient is able to return to prior living environment (Presents from SNF) OT Discharge Recommendations: Patient is able to return to prior living environment Signed Julio Cesar Medina MD [facility] 05/12/2025 12:25 PM * Cathie [...] Bubble Study Result Date: 05/10/2025 1 1 [facility] Heart Station [address] [place] [address] [phone] (fax) Echocardiogram-[facility] Name: NADIR BETH Study Date: 05/10/2025 09:19 AM B/P: 178 mmHg/92 mmHg HR: 104 bpm Date of : 1940 Location: [facility] Height: 72 in. Age: 85 year(s) Patient [...] effusion is seen. Procedure Staff Reading Group: [facility] Claims Examiner: SEAN Bailey, RDCS Ordering Physician: ESTUARDO REED Electronically signed by MD Geri Delarosa on05/10/2025 at 10:24 AM No nuclear medicine results found for the past 12 months Relevant Imaging Results Cardiac catheterization PROCEDURE PHYSICIAN: Shamar Nolan MD Clinical Presentation: 85 y.o. Male with history of A-fib on Xarelto, hypertension, HFpEF, CKD, recent history of CVA 4 months ago, renal artery stenosis transferred from [facility] for acute on chronic HFpEF and [...] and a micropuncture access technique a 6 English sheath was placed in the right internal jugular vein. The Garza catheter was advanced under fluoroscopic and hemodynamic monitoring to the right atrium. Pressure obtained of the right atrium, right ventricle, pulmonary artery, pulmonary capillary position. Oxygen saturation drawn for the pulmonary artery and Mary cardiac with a cardiac index were calculated. 1% lidocaine was infiltrated over the left radial artery. A 6-English Terumo Glidesheath slender was placed in left [...] 26 Nonrheumatic aortic valve stenosis Paroxysmal A-fib ([id number] 5) Hypertension Recent stroke History of renal [...] least in part, completed using a voice boiler operators supervisor system. Every effort was made to ensure accuracy. However, inadvertent computerized boiler operators supervisor errors may be present. Cathie Henson MD PGY-4 Vibrator Equipment Tester [facility] Pager: [phone] [1] Current Facility-Administered Medications: acetaminophen (Tylenol) tablet [...] TAVR. Nicole Reyes MD, ScM, MSc Cardiac Legal Administrator Email: [email or web address] Nicole Reyes MD, ScM, MSc Cardiac Legal Administrator Email: [email or web address] * Julio Cesar Medina MD - 05/11/2025 4:14 PM EDT Images from the original note were not included. [facility] Medicine Daily Progress Note - 05/11/2025 4:14 PM; Room: [address] [place] [address] Admission: 05/10/2025 2:37 AM; Length of stay: 1 days THE HOSPITALIST TEAM PREFERS TO USE [employer] CHAT FOR NON-URGENT COMMUNICATION 7AM- 7PM. IF I DO NOT RESPOND WITHIN 20 MINUTES OR URGENT MATTERS, PLEASE CALL THROUGH THE BACK TENDER [employer]. FROM 7PM-7AM, PLEASE PAGE [phone](COVR). Code Status: Full Code Barriers to Discharge: [...] daily and labetalol Acute congestive heart failure ([facility]) Acute on chronic heart failure with preserved [...] mellitus, with long-term current use of insulin ([facility]) Insulin blood sugar check diet A1c came back of 9.3 Other hyperlipidemia Continue Zetia Chronic atrial fibrillation ([facility]) CHADS2 DS vascular score is 7 currently [...] LDL 118 05/11/2025 No results found for: [id number] , IRON , TIBC , C3 , C4 , SHERRY , CANCA , ASO , PSA , CEA , CA125 , CA199 , AFP , CA153 Imaging Complete Echo (TTE) w/wo Imaging Agent, Strain, 3D, Bubble Study 1 1 [facility] Heart Station [address] [place] [address] [phone] (fax) Echocardiogram-[facility] Name: NADIR BETH Study Date: 05/10/2025 09:19 AM B/P: 178 mmHg/92 mmHg HR: 104 bpm Date of : 1940 Location: [facility] Height: 72 in. Age: 85 year(s) Patient [...] effusion is seen. Procedure Staff Reading Group: [facility] Claims Examiner: SEAN Bailey, RDCS Ordering Physician: ESTUARDO REED Discharge Planning Expected Discharge Disposition: [facility] (03) PT Discharge Recommendations: Patient is able to return to prior living environment (Presents from SNF) OT Discharge Recommendations: Patient is able to return to prior living environment Signed Julio Cesar Medina MD Hospital Medicine 05/11/2025 4:14 PM * Paradise Garrison - 05/11/2025 3:05 PM EDT discharge planning: to return to [facility] updates sent to [facility], via [employer] system discharge barriers: [] no insurance precert [...] Bubble Study Result Date: 05/10/2025 1 1 [facility] Heart Station [address] [place] [address] [phone] (fax) Echocardiogram-[facility] Name: NADIR BETH Study Date: 05/10/2025 09:19 AM B/P: 178 mmHg/92 mmHg HR: 104 bpm Date of : 1940 Location: [facility] Height: 72 in. Age: 85 year(s) Patient [...] effusion is seen. Procedure Staff Reading Group: [facility] Claims Examiner: SEAN Bailey, RDCS Ordering Physician: ESTUARDO REED Electronically signed by MD Geri Delarosa on05/10/2025 at 10:24 AM No nuclear medicine results found for the past 12 months Relevant Imaging Results Complete Echo (TTE) w/wo Imaging Agent, Strain, 3D, Bubble Study 1 1 [facility] Heart Station [address] [place] [address] [phone] (fax) Echocardiogram-[facility] Name: NADIR BETH Study Date: 05/10/2025 09:19 AM B/P: 178 mmHg/92 mmHg HR: 104 bpm Date of : 1940 Location: [facility] Height: 72 in. Age: 85 year(s) Patient [...] effusion is seen. Procedure Staff Reading Group: [facility] Claims Examiner: Bianca Armendariz, BS, RDCS Ordering Physician: ESTUARDO REED SSMENT Acute on chronic heart failure with preserved EF Echo 05/10 showed EF preserved difficult access secondary to rhythm, moderate to severe and AR, mild MR and TR Mildly elevated troponin most likely secondary to chronic myocardial injury Troponin 21--> 26 Nonrheumatic aortic valve stenosis Paroxysmal A-fib ([id number] 5) Hypertension Recent stroke History of renal [...] least in part, completed using a voice boiler operators supervisor system. Every effort was made to ensure accuracy. However, inadvertent computerized boiler operators supervisor errors may be present. Stevie Nuñez MD PGY-2 Internal Medicine Cardiology Consult Service [facility] [1] Current Facility-Administered Medications: acetaminophen (Tylenol) [...] with the assessment and plan of the director of medical education * Landen Rice, PT - 05/11/2025 10:19 AM EDT Physical [...] time General Assessment General Assessment Hearing: Mild [place] Hand Dominance: Right Static Sitting Balance Static [...] Clicks T-Score: 18 Assessment/Plan PT Assessment PT Assessment/MATHEMATICAL ENGINEERING TECHNICIAN Summary: Patient is a 85 y/o male [...] fibrillation (CMS/HCC) Chest pain Angina pectoris, unstable ([facility]) * Chantal Sepulveda, SPT - 05/10/2025 3:45 PM EDT Physical [...] an 85 y/o male admitted 05/10/25 from [facility] where he presented following outpatient labs [...] Intact General Assessment General Assessment Hearing: mild [place] Hand Dominance: Right Home Living Home Living [...] Level of Function Prior Function Level of [place]: Independent with ADLs and functional transfers, Independent [...] an 85 y/o male admitted 05/10/25 from [facility] with high BNP and progressive lower [...] No pertinent surgical history. Cosigned by Landen Rice, PT at 05/10/2025 3:50 PM EDT Associated attestation - Landen Rice PT - 05/10/2025 3:50 PM EDT This chief underwriter (PT) provided one-on-one supervision, direction of patient [...] Intact General Assessment General Assessment Hearing: (mild [place]) Hand Dominance: Right Home Living Home Living Type of Home: House Lives With: Spouse Home Adaptive Equipment: Walker rolling, Cane (sc, gb, hhs) Home Layout: One level Home Access: Stairs to enter with rails (5) Bathroom Shower/Tub: Tub/shower unit Prior Level of Function Prior Function Level of [place]: Independent with ADLs and functional transfers, Independent [...] Eating meals?: None (Independent) Total Score OT [facility]: 21 Assessment/Plan OT Assessment OT Impairments: Decreased ADL status, Decreased endurance, Decreased functional mobility OT Assessment/REMEDIATION CONSULTANT Summary: (needs skilled OT due to weakness [...] who was admitted as a directtransfer from [place] on 05/10/2025 for acute on chronic heart failure. 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 He presented to the ED on the advice of his physician following an increase in lower extremity edema with associated labs showing a BNP 6200. In the [place] ED he was found to have pulmonary vascular congestion with right sided pleural effusion on chest x-ray, and found to be hypertensive at 190/68, initially managed medically with lasix and antihypertensives prior to transfer. At [facility] echo was performed which was unable to [...] LDL 118 05/11/2025 No results found for: [id number] , IRON , TIBC , C3 , [...] the right common femoral artery using two 6-English ProGlide devices. Angio-Seal vascular closure in the left common femoral artery. Placement of SENTINEL cerebral embolic protection device. OPERATORS: Interventional Cardiology Equipment Installer: Mike Cisneros MD Cardiac Surgery Equipment Installer: Negro Lopez MD Head Start Assistant Teacher Interventional Cardiology Equipment Installer: Shamar Nolan METHODS: Procedure was explained to the patient with risks and benefits. he signed informed consent. he was brought to label designer in a fasting state. The procedure was performed in the cardiac label designer under conscious sedation. The right wrist area was prepped and draped in usual fashion. Access was obtained using ultrasound guidance and micropuncture technique in the right radial artery and a 6-English x 11 cm Hydrophilic sheath was placed. Verapamil was given through the sheath. Both groin areas, and the right neck area were prepped and draped in usual fashion. Ultrasound guidance was used for micropuncture access in the right internal jugular vein and a 6-English x 11 cm introducer sheath was secured in place. Micropuncture technique and ultrasound guidance were used for access in the right common femoral artery and inner cannula angiography was performed followed by upsizing to a 6-English x 11 cm sheath. The same was done for the access in the left common femoral artery. At this time, we proceeded with the preclosure in the right common femoral artery using 2 crossing Perclose devices and the access was then upsized over a wire to a 10-English sheath. A 5-English balloon-tipped pacemaker wire was advanced through the internal jugular vein sheath to the right ventricular apex and adequate capture was confirmed. Heparin was given intravenously and therapeutic ACT confirmed during the rest of the procedure and additional heparin given as needed. Through the left common femoral sheath, an angled 6-English pigtail catheter was then advanced to the ascending aorta and placed in the noncoronary cusp. Aortic root angiography was performed in the coplanar view as determined by prior CT scan measurements. A 6-English IM diagnostic catheter was then advanced through the right radial sheath and then navigated using an 0.035 inch wire to the ascending aorta and this was used to place an exchange length [place] 0.014 inch wire. The wire was advanced to the left carotid artery. A [place] device was then prepped using standard techniques and then advanced. The proximal filter was deployed in the innominate artery followed by deployment of the distal filter. The [place] device was then secured in place. The right common femoral access was then upsized using an exchange length [place]under[place] wire [which was placed through a multipurpose catheter] to the 14-English Le E-sheath. The sheath was secured in place. A 6-English AL1 diagnostic catheter was advanced via the E-sheath, and using a straight stiff Glidewire, the aortic valve was crossed and the catheter was advanced in the left ventricular cavity, and using an exchange length J-wire, a 6-English angled pigtail catheter was advanced to make [...] was exchanged over the wire to a 6-English angled pigtail catheter which was advanced across [...] aortic/ventricular. The pigtail catheters were retracted. The [place] device was recaptured. At this stage, the procedure was concluded. An electrocardiogram was performed showing atrial fibrillation and new LBBB. Therefore, the temporary pacemaker wire was secured in place. The previously placed Perclose sutures were tightened in the right common femoral artery achieving good hemostasis. A 6-English Angioseal device was used for hemostasis in [...] months ago, renal artery stenosis transferred from [facility] for acute on chronic HFpEF and [...] and a micropuncture access technique a 6 English sheath was placed in the right internal jugular vein. The Garza catheter was advanced under fluoroscopic and hemodynamic monitoring to the right atrium. Pressure obtained of the right atrium, right ventricle, pulmonary artery, pulmonary capillary position. Oxygen saturation drawn for the pulmonary artery and Mary cardiac with a cardiac index were calculated. 1% lidocaine was infiltrated over the left radial artery. A 6-English Terumo Glidesheath slender was placed in left [...] 2 mg, 2 mg, oral, Nightly PRN, Julio Cesar Medina MD, 2 mg at 05/14/25 210 midazolam (Versed) injection, , , PRN, Mike [...] examined the patient duringrounds with the resident/fellow Fabio. I repeated the stephenson components of the [...] than [address] Sung's office in [place] yesterday. He also had signs of congestive [...] leg paresis. He saw Dr. 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 [...] 05/10/2025 46.9 (L) >60.0 mL/min/1.73m*2 Final [facility]???s estimated glomerular filtration rate (eGFR) will no [...] 237 (H) 70 - 105 mg/dL Final [id number] Auto WBC 05/11/2025 11.58 (H) 4.00 - [...] 05/11/2025 43.0 (L) >60.0 mL/min/1.73m*2 Final [facility]???s estimated glomerular filtration rate (eGFR) will no [...] 201 (H) 70 - 105 mg/dL Final [facility] Assessment & Plan Chest pain Primary hypertension Acute congestive heart failure ([facility]) History of CVA (cerebrovascular accident) Type 2 diabetes mellitus, with long-term current use of insulin ([facility]) . No associated orders from this encounter found during lookback period of 72 hours. Other hyperlipidemia . No associated orders from this encounter found during lookback period of 72 hours. Chronic atrial fibrillation ([facility]) Chronic kidney disease Elevated troponin Angina pectoris, unstable ([facility]) COrders from past 72 hours: Case Request Manager Strategy & Account: Coronary angiography, Right heart cath; Standing Cardiac [...] [address] Garcia at [facility] says was a small embolic stroke from [...] felt to be clinically significant by the loadmaster. I believe the risks and benefits of CABG/AVR are too high to proceed to recommend coronary artery bypass grafting/AVR, especially with a possible history of recent cva. However I feel his history and testing warrant aortic valve replacement and would recommend TAVR. We will obtain the records of his stroke from [facility]. Negro Lopez MD Cardiac Surgery [1] History [...] months back, renal artery stenosis transferred from [facility] for acute on chronic heart failure. Patient had history of stroke 4 months back and was in rehab patient has been having progressive lower extremity edema for few days. Patient was advised to increase his Lasix from 20 to 40 mg and blood work was done which showed BNP 6214 and was advised to go to the ED. In [place] ED chest x-ray showed pulmonary vascular congestion [...] Bubble Study Result Date: 05/10/2025 1 1 [facility] Heart Station [address] [id number] [phone] (fax) Echocardiogram-[facility] Name: NADIR BETH Study Date: 05/10/2025 09:19 AM B/P: 178 mmHg/92 mmHg HR: 104 bpm Date of : 1940 Location: [facility] Height: 72 in. Age: 85 year(s) Patient [...] effusion is seen. Procedure Staff Reading Group: [facility] Claims Examiner: SEAN Bailey, RDCS Ordering Physician: ESTUARDO REED Electronically signed by MD Geri Delarosa on05/10/2025 at 10:24 AM No nuclear medicine results found for the past 12 months Relevant Imaging Results Complete Echo (TTE) w/wo Imaging Agent, Strain, 3D, Bubble Study 1 1 [facility] Heart Station [address] [place] [address] [phone] (fax) Echocardiogram-[facility] Name: NADIR BETH Study Date: 05/10/2025 09:19 AM B/P: 178 mmHg/92 mmHg HR: 104 bpm Date of : 1940 Location: [facility] Height: 72 in. Age: 85 year(s) Patient [...] effusion is seen. Procedure Staff Reading Group: [facility] Claims Examiner: Bianca Armendariz BS, RDCS Ordering Physician: ESTUARDO REED SSMENT Acute on chronic heart failure with preserved EF Echo 05/10 showed EF preserved difficult access secondary to rhythm, moderate to severe and AR, mild MR and TR Mildly elevated troponin most likely secondary to chronic myocardial injury Troponin 21--> 26 Nonrheumatic aortic valve stenosis Paroxysmal A-fib ([id number] 5) Hypertension Recent stroke History of renal [...] least in part, completed using a voice boiler operators supervisor system. Every effort was made to ensure accuracy. However, inadvertent computerized boiler operators supervisor errors may be present. Stevie Nuñez MD PGY-2 Internal Medicine Cardiology Consult Service [facility] [1] No family history on file. [...] AM THE HOSPITALIST TEAM PREFERS TO USE [employer] CHAT FOR NON-URGENT COMMUNICATION 7AM- 7PM. IF I DO NOT RESPOND WITHIN 20 MINUTES OR URGENT MATTERS, PLEASE CALL THROUGH THE BACK TENDER [employer]. FROM 7PM-7AM, PLEASE PAGE [phone](COVR). Chief Complaint No chief complaint on file. History of Present Illness Nadir Turner is an 85 y.o. male admitted as a direct transfer from [facility] where he presented following outpatient labs [...] pulses. Heart sounds: Normal heart sounds. Comments: [id number] s4 systolic murmur Pulmonary: Effort: Pulmonary effort [...] JAY or ARB Acute congestive heart failure ([facility]) Per review of chart patient has diastolic [...] mellitus, with long-term current use of insulin ([facility]) Insulin blood sugar check diet Other hyperlipidemia Antilipemic agents diet Chronic atrial fibrillation ([facility]) CHADS2 DS vascular score is 7 currently on Eliquis Chronic kidney disease stage IIIb avoid nephrotoxic meds hypovolemia nephrology consult CODE STATUS DNR CCA VTE Prophylaxis: Eliquis ----- Focus of this inpatient stay will [...] this hospital stay by a member of [facility] Medicine. Past Medical History Medical History[1] [...] Procedure Abnormality Status --------- ------ CBC auto differential[[id number]] Please view results for these tests on the individual orders. COMPREHENSIVE METABOLIC PANEL MAGNESIUM TSH3 REFLEX TO FT4 HIGH SENSITIVITY TROPONIN I HIGH SENSITIVITY TROPONIN I HIGH SENSITIVITY TROPONIN I CBC WITH AUTO DIFFERENTIAL Imaging No image results found. Signed Estuardo Reed MD [facility] Medicine 05/10/2025 4:12 AM [1] History [...] than [address] Sung's office in [place] yesterday. He also had signs of congestive [...] leg paresis. He saw Dr. 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 [...] 05/10/2025 46.9 (L) >60.0 mL/min/1.73m*2 Final [facility]???s estimated glomerular filtration rate (eGFR) will no [...] 237 (H) 70 - 105 mg/dL Final [id number] Auto WBC 05/11/2025 11.58 (H) 4.00 - [...] 05/11/2025 43.0 (L) >60.0 mL/min/1.73m*2 Final [facility]???s estimated glomerular filtration rate (eGFR) will no [...] 201 (H) 70 - 105 mg/dL Final [facility] Assessment & Plan Chest pain Primary hypertension Acute congestive heart failure (CMS/HCC) History of CVA (cerebrovascular accident) Type 2 diabetes mellitus, with long-term current use of insulin (CMS/[facility]) . No associated orders from this encounter found during lookback period of 72 hours. Other hyperlipidemia . No associated orders from this encounter found during lookback period of 72 hours. Chronic atrial fibrillation (CMS/HCC) Chronic kidney disease Elevated troponin Angina pectoris, unstable (CMS/HCC) COrders from past 72 hours: Case Request Manager Strategy & Account: Coronary angiography, Right heart cath; Standing Cardiac [...] [address] Garcia at [facility] says was a small embolic stroke from [...] felt to be clinically significant by the loadmaster. I believe the risks and benefits of CABG/AVR are too high to proceed to recommend coronary artery bypass grafting/AVR, especially with a possible history of recent cva. However I feel his history and testing warrant aortic valve replacement and would recommend TAVR. We will obtain the records of his stroke from [facility]. Negro Lopez MD Cardiac Surgery [1] History [...] 2 puffs in the morning. * Paradise Bladimir - 05/10/2025 4:07 PM EDTAssociated Order(s): IP CONSULT TO SOCIAL WORK discharge planning: to return to [facility] Patient came to this admission from [facility]. - Occupational Therapy Eval noting Patient is able to return to prior living environment - Physical Therapy Eval noting Patient is able to return to prior living environment - LDAs tab not listing any open wounds or closed skin issues - I/O wVital flowsheet noting Patient on Room Air at this tie - PC to [facility]; Erin confirmed Patient is from their facility, specifically their Fpc unit (not ECF or LONGTERM) discharge barriers: [] no insurance precert needed [...] months back, renal artery stenosis transferred from [facility] for acute on chronic heart failure. Patient had history of stroke 4 months back and was in rehab patient has been having progressive lower extremity edema for few days. Patient was advised to increase his Lasix from 20 to 40 mg and blood work was done which showed BNP 6214 and was advised to go to the ED. In [place] ED chest x-ray showed pulmonary vascular congestion [...] Bubble Study Result Date: 05/10/2025 1 1 [facility] Heart Station [address] [place] [address] [phone] (fax) Echocardiogram-[facility] Name: NADIR BETH Study Date: 05/10/2025 09:19 AM B/P: 178 mmHg/92 mmHg HR: 104 bpm Date of : 1940 Location: [facility] Height: 72 in. Age: 85 year(s) Patient [...] effusion is seen. Procedure Staff Reading Group: [facility] Claims Examiner: SEAN Bailey, RDCS Ordering Physician: ESTUARDO REED Electronically signed by MD Geri Delarosa 05/10/2025 at 10:24 AM No nuclear medicine results found for the past 12 months Relevant Imaging Results Complete Echo (TTE) w/wo Imaging Agent, Strain, 3D, Bubble Study 1 1 [facility] Heart Station [address] [place] [address] [phone] (fax) Echocardiogram-[facility] Name: NADIR BETH Study Date: 05/10/2025 09:19 AM B/P: 178 mmHg/92 mmHg HR: 104 bpm Date of : 1940 Location: [facility] Height: 72 in. Age: 85 year(s) Patient [...] effusion is seen. Procedure Staff Reading Group: [facility] Claims Examiner: SEAN Bailey, RDCS Ordering Physician: ESTUARDO REED SSMENT Acute on chronic heart failure with preserved EF Echo 05/10 showed EF preserved difficult access secondary to rhythm, moderate to severe and AR, mild MR and TR Mildly elevated troponin most likely secondary to chronic myocardial injury Troponin 21--> 26 Nonrheumatic aortic valve stenosis Paroxysmal A-fib ([id number] 5) Hypertension Recent stroke History of renal [...] least in part, completed using a voice boiler operators supervisor system. Every effort was made to ensure accuracy. However, inadvertent computerized boiler operators supervisor errors may be present. Stevie Nuñez MD PGY-2 Internal Medicine Cardiology Consult Service [facility] [1] No family history on file. [...] evaluated the patient on rounds with the director of medical education and agree with his assessment and plan [...] 186 (H) 05/10/2025 0717 BUN 28 (H) 05/10/2025453 CREATININE 1.45 (H) 05/10/2025453 NA 139 05/10/2025 045 K 3.6 05/10/2025 045 MG 2.0 05/10/2025453 HGB 10.4 (L) 05/10/2025453 WBC 10.50 05/10/2025 045 Allergies: Allergies[2] Nutrition Problems: Swallowing Assessment: pt [...] of Nutrition and Dietetics (AND) and the [place] Society of Enteral and Parenteral Nutrition (ASPEN). [...] To reach the Clinical Dietitian, please utilize [employer] chat Wednesday-Wednesday from 8AM-4PM or call extension [phone]. For weekends (Wednesday-Wednesday) and hols, the Clinical Dietitian can be reached via pager ([phone]) from 9AM-3PM. The Clinical Nutrition Department is unable to respond to [employer] messages on Sundays and . [1] History reviewed. No pertinent past medical history. [2] Allergies Allergen Reactions Aminolevulinic Acid Hcl Unknown Iodinated Contrast Media Unknown Nitroglycerin Other hypotension Simvastatin Unknown documented in this encounter Nursing Notes * Yolanda Syed RN - 05/17/2025 5:31 PM EDT Report called to BRANDEN Norton at [facility]. * Liz Joshi RN - 05/17/2025 10:34 [...] 115/44 167/78 Pulse: 76 80 88 Resp: 19 12 26 Temp: 36.6 ??C (97.9 ??F) TempSrc: Temporal [...] Liz Joshi RN Rapid Response Team Nurse [phone] 05/17/2025 10:35 AM * Marc Araiza RN - 05/17/2025 2:32 AM EDT Patient Name: Nadir Beth : 1940 Primary Care Physician: Pj Sung MD Admission Date: 05/10/2025 RAPID RESPONSE TEAM ICU TRANSFER FOLLOW-UP NOTE SUBJECTIVE / OBJECTIVE: Follow-up for previous transfer out of the ICU notification for 05/16 at 1504. ASSESSMENT / INTERVENTIONS: Recent Vital Signs: Vitals: 05/16/25 1505 05/16/25 1601 05/16/25 2000 05/17/25 0000 BP: 130/57 141/68 135/55 111/51 Pulse: [...] time, but encouraged to reach out to PLAY WRITER if anything changes. Marc Araiza RN Rapid Response Team Nurse [phone] 05/17/2025 2:32 AM * Maddy Enrique RN - 05/15/2025 5:13 PM EDT Report called to Karen OTERO on MICU. documented in this encounter Miscellaneous Notes * Care Plan - Radha Cool RN - 05/17/2025 5:05 PM EDT Daily Case Management Update Barriers to Discharge: Patient is to discharge to longterm facility [facility] today. Stretcher transport has been established with [facility], poultry picker time 1934. Diet: Dietary Orders (From [...] Request Once Comments: Omelet with green pepper, cymraes cheese and onion Wheat toast Sausage Raisin bran Milk Decaf coffee 05/17/25 0802 05/16/25 1553 Special Kitchen Request Once Comments: [place] burger with cheese On the side: tomato, [...] Request Once Comments: Omelet with green pepper, cymraes cheese and onion, 1 slice wheat toast, [...] Question: Reason for OT? Answer: gait abnormality 05/10/25 0411 * Care Plan - Yolanda Syed RN [...] or baseline comfort level 05/16/20252258 by Cee Watkins RN Outcome: Progressing Flowsheets (Taken 05/16/20251999) Verbalizes/displays [...] and behaviors that affect risk of falls [place] fall precautions as indicated by assessment Educate [...] safest level of function 05/16/20252258 by Cee Watkins RN Outcome: Progressing Flowsheets (Taken 05/16/20251999) Return [...] 05/16/25 1553 Special Kitchen Request Once Comments: [place]t burger with cheese On the side: tomato, [...] Request Once Comments: Omelet with green pepper, cymraes cheese and onion, 1 slice wheat toast, [...] ice cream and a diet coke 05/10/25 1807 Physician Expected Discharge Date: 05/12/2025 Discharge Delays: [...] Question: Reason for OT? Answer: gait abnormality 05/10/25 0411 * Care Plan - Ynes Bloom RN - 05/15/2025 5:29 PM EDT Daily Case Management Update Multidisciplinary rounds have been completed. Barriers to Discharge: Patient to go for TAVR Today. Discharge dispo: pending clinical course, Prior to Operation PT/OT rec [facility] ([facility] Patient is from [facility], with tentative plan to return when medically ready. Diet: Dietary Orders (From admission, onward) Start Ordered 05/15/25 0001 Diet NPO Diet effective midnight Comments: Sips with medications Question: Reason for NPO: Answer: Operation/Procedure 05/14/25 1521 05/14/25 0631 Special Kitchen Request Once Comments: Omelet with green pepper, cymraes cheese and onion, 1 slice wheat toast, decaf coffee, cheerios with 2% milk please :) 05/14/25 0633 05/12/25 0700 Special Kitchen Request Once Comments: Fruit cup, 1 piece of wheat toast, southwest eggs, raisin bran and decaf coffee please :) 05/12/25 0410 05/10/251806 Special Kitchen Request Once Comments: Please deliver on last round! Hot turkey sandwich with mashed potatoes, green beans, sugar free ice cream and a diet coke 05/10/251806 Physician Expected Discharge Date: 05/12/2025 Discharge Delays: [...] Reason for PT? Answer: weakness 05/10/25 0411 05/10/25410 OT eval and treat Until therapy completed Question: Reason for OT? Answer: gait abnormality 05/10/25410 * Assessment & Plan Note - Julio Cesar Medina MD - 05/15/2025 1:32 PM EDTAssociated Problem(s): Acute congestive heart failure (CMS/[facility]) Acute on chronic heart failure with preserved [...] 1:19 PM EDTAssociated Problem(s): Chronic atrial fibrillation (CMS/HCC) [...] EDT TAVR Operative Note Date: 05/15/2025 Location: [facility] (Cath) Name: Nadir Beth, : 1940, Diagnosis Pre-op Diagnosis * Nonrheumatic [...] the right common femoral artery using two 6-English ProGlide devices. Angio-Seal vascular closure in the left common femoral artery. Placement of SENTINEL cerebral embolic protection device. OPERATORS: Interventional Cardiology Equipment Installer: Mike Cisneros MD Cardiac Surgery Equipment Installer: Negro Lopez MD Head Start Assistant Teacher Interventional Cardiology Equipment Installer: Shamar Nolan METHODS: Procedure was explained to the patient with risks and benefits. he signed informed consent. he was brought to label designer in a fasting state. The procedure was performed in the cardiac label designer under conscious sedation. The right wrist area was prepped and draped in usual fashion. Access was obtained using ultrasound guidance and micropuncture technique in the right radial artery and a 6-English x 11cm Hydrophilic sheath was placed. Verapamil was given through the sheath. Both groin areas, and theright neck area were prepped and draped in usual fashion. Ultrasound guidance was used for micropuncture access in the right internal jugular vein and a 6-English x 11 cm introducer sheath was secured in place. Micropuncture technique and ultrasound guidance were used for access in the right common femoral artery and inner cannula angiography was performed followed by upsizing to a 6-English x 11 cm sheath. The same was done for the access in the left common femoral artery. At this time, we proceeded with the preclosure in the right common femoral artery using 2 crossing Perclose devices and the access was then upsized over a wire to a 10-English sheath. A 5-English balloon-tipped pacemaker wire was advanced through the internal jugular vein sheath to the right ventricular apex and adequate capture was confirmed. Heparin was given intravenously and therapeutic ACT confirmed during the rest of the procedure and additional heparin given as needed. Through the left common femoral sheath, an angled 6-English pigtail catheter was then advanced to the ascending aorta and placed in the noncoronary cusp. Aortic root angiography was performed in the coplanar view as determined by prior CT scan measurements. A 6-English IM diagnostic catheter was then advanced through the right radial sheath and then navigated using an 0.035 inch wire to the ascending aorta and this was used to place an exchange length [place] 0.014 inch wire. The wire was advanced to the left carotid artery. A New [place] device was then prepped using standard techniques and then advanced. The proximal filter was deployed in the innominate artery followed by deployment of the distal filter. The [place] device was then secured in place. The right common femoral access was then upsized using an exchange length Lunderquist wire [which was placed through a multipurpose catheter] to the 14- English Le E-sheath. The sheath was securedin place. A 6-English AL1 diagnostic catheter was advanced via the E-sheath, and using a straight stiff Glidewire, the aortic valve was crossed and the catheter was advanced in the left ventricular cavity, and using an exchange length J-wire, a 6-English angled pigtail catheter was advanced to make [...] was exchanged over the wire to a 6-English angled pigtail catheter which was advanced across [...] aortic/ventricular. The pigtail catheters were retracted. The [place] device was recaptured. At this stage, the procedure was concluded. An electrocardiogram was performed showing atrial fibrillation and new LBBB. Therefore, the temporary pacemaker wire was secured in place. The previously placed Perclose sutures were tightened in the right common femoral artery achieving good hemostasis. A 6-English Angioseal device was used for hemostasis in [...] Name Action Serial No. Pacemaker ELECTRODE,PACING,TEMP,5F,110CM - [id number] Used, Not Implanted Prosthetic Valve KIT,HEART VALVE,SAPIEN3,26MM - [id number] - [id number] Implanted [id number] Staff: Scrub Person: Tita Deal, RT; Inderjit Sanchez, RT Documenter: Makenzie Brown, RT; Mulu Pimentel, RT Invasive Nurse: BRANDEN Johnson MD Cardiac Surgery * Pre-Sedation Documentation - Mike Cisneros MD - 05/15/2025 9:16 AM EDT Patient: Nadir Beth Procedure Information Date/Time: 05/15/251099 Procedure: TAVR Location: [facility] [address] / [facility] (Cath) Providers: Mike [...] 12:13 PM EDTAssociated Problem(s): Chronic atrial fibrillation (CMS/HCC) [...] Request Once Comments: Omelet with green pepper, cymraes cheese and onion, 1 slice wheat toast, [...] ice cream and a diet coke 05/10/25 1807 Physician Expected Discharge Date: 05/14/2025 Discharge Delays: [...] 10:52 AM EDTAssociated Problem(s): Chronic atrial fibrillation (CMS/HCC) CHADS2 [...] mellitus, with long-term current use of insulin ([facility]) Continue sliding scale insulin A1c came back [...] COrders from past 72 hours: Case Request Manager Strategy & Account: Coronary angiography, Right heart cath; Standing Cardiac [...] to see him * Care Plan - Giseal Ramirez RN - 05/11/2025 10:16 AM EDT [...] Procedures: Coronary angiography Right heart cath Location: [facility] 3 / [facility] (Cath) Providers: Shamar [...] back? Yes Pharmacy Bedside Delivery Status Interested ([facility] in [facility]) Does the patient have a case maker assigned to them through their insurance? No Living Arrangement (Current/Prior to Hospitalization) Private residence;Inpatient rehab facility (2 story house w/ 5 steps. Lives with his and she is able to help after discharge as needed. Came to us from [facility] x 3 weeks / Bedhold.) Does the patient have history of HHC or SNF? Yes (Hx HHC et Current SNF.) Assistive Device Walker;Wheelchair (@ [facility]. Walker at home.) Patient's goal for discharge [facility] Was patient reminded that goal for [...] Discharge et per Progress Note: Transfer from [facility] for elevated BNP et BLEEdema. CHF. [...] Question: Reason for OT? Answer: gait abnormality 05/10/25 0411 * Assessment & Plan Note - Estuardo Reed MD - 05/10/2025 4:23 AM EDT Associated Problem(s): Primary hypertension Adjust antihypertensives low-salt diet with renal insufficiency unable to start JAY or ARB * Assessment & Plan Note - Estuardo Reed MD - 05/10/2025 4:23 AM EDT Associated Problem(s): Acute congestive heart failure (CMS/HCC) Per review [...] Description 06/18/2025 11:30 AM EDT Office Visit [facility] [place] [address] [place] [address] Mike Cisneros MD [address] [facility] Juan [address] [facility] [place] [address] 07/11/2025 1:30 PM EDT Follow-Up [facility] [address] [place] [phone] Jeff Hutton MD [address] [place] [phone] Pending Results Name Type Priority Associated Diagnoses [...] POCT glucose meter (05/17/2025 4:24 PM EDT) [facility] Glucose POC 331(H) 70 - 105 mg/dL 05/17/2025 4:36 PM EDT [facility] ([facility]) Comment:[email or web address] Blood Capillary blood specimen / Unknown 05/17/2025 4:24 PM EDT 05/17/2025 4:36 PM EDT Narrative [facility] ([facility]) - 05/17/2025 4:36 PM EDT Waived Testing in the ED is performed under the ED CLIA certificate #[id number]. us Nikolas Gonzalez MD LAB BLOOD ORDERABLES Final Resul t [facility] ([facility]) [address] [place], [place] [id number] * (ABNORMAL) POCT glucose meter (05/17/2025 11:04 AM EDT) Glucose POC 310(H) 70 - 105 mg/dL 05/17/2025 11:14 AM EDT [facility] ([facility]) Comment:[email or web address] Blood Capillary blood specimen / Unknown 05/17/2025 11:04 AM EDT 05/17/2025 11:14 AM EDT Narrative [facility] ([facility]) - 05/17/2025 11:14 AM EDT Waived Testing in the ED is performed under the ED CLIA certificate #[id number]. us Nikolas Gonzalez MD LAB BLOOD ORDERABLES Final Resul t [facility]) [address] [place] [address] * (ABNORMAL) Manual Differential (05/17/2025 8:59 AM EDT) Immature Granulocytes % 0.6 0.0 - 1.0 % 05/17/2025 11:57 AM EDT [facility] ([facility]) Neutrophils Absolute 9.2(H) 1.6 - 7.6 10*3/uL 05/17/2025 11:57 AM EDT [facility] ([facility]) Lymphocytes Absolute 0.87(L) 1.20 - 4.00 10*3/uL 05/17/2025 11:57 AM EDT [facility] ([facility]) Monocytes Absolute 1.92(H) 0.10 - 1.00 10*3/uL 05/17/2025 11:57 AM EDT [facility] ([facility]) Eosinophils Absolute 0.05 0.00 - 0.50 10*3/uL 05/17/2025 11:57 AM EDT [facility] ([facility]) Basophils Absolute 0.05 0.00 - 0.20 10*3/uL 05/17/2025 11:57 AM EDT [facility] ([facility]) Neutrophils % 75.6(H) 40.0 - 72.0 % 05/17/2025 11:57 AM EDT [facility] ([facility]) Lymphocytes % 7.2(L) 20.0 - 45.0 % 05/17/2025 11:57 AM EDT [facility] ([facility]) Monocytes % 15.8(H) 5.0 - 12.0 % 05/17/2025 11:57 AM EDT [facility] ([facility]) Eosinophils % 0.4 0.0 - 6.0 % 05/17/2025 11:57 AM EDT [facility] ([facility]) Basophils % 0.4 0.0 - 1.0 % 05/17/2025 11:57 AM EDT [facility] ([facility]) Immature Granulocytes Absolute 0.07 0.00 - 0.20 10*3/uL 05/17/2025 11:57 AM EDT [facility] ([facility]) Blood Venous blood specimen / Unknown Venipuncture / Unknown 05/17/2025 8:59 AM EDT 05/17/2025 9:12 AM EDT us Nikolas Gonzalez MD LAB BLOOD ORDERABLES Final Resul t [facility] ([facility]) [address] [place] [id number] * (ABNORMAL) Comprehensive metabolic panel (05/17/2025 8:59 AM EDT) Sodium 140 136 - 145 mmol/L 05/17/2025 9:44 AM EDT [facility] ([facility]) Potassium 3.9 3.5 - 5.1 mmol/L 05/17/2025 9:44 AM EDT [facility] ([facility]) Chloride 104 98 - 107 mmol/L 05/17/2025 9:44 AM EDT [facility] ([facility]) CO2 25 21 - 31 mmol/L 05/17/2025 9:44 AM EDT [facility] ([facility]) Anion Gap 15 7 - 20 mmol/L 05/17/2025 9:44 AM [facility] ([facility]) BUN 38(H) 7 - 25 mg/dL 05/17/2025 9:44 AM [facility] ([facility]) Creatinine 1.73(H) 0.70 - 1.30 mg/dL 05/17/2025 9:44 AM [facility] ([facility]) BUN/Creatinine Ratio 22.0 01/2025 9:44 AM [facility] ([facility]) Glucose 239(H) 70 - 100 mg/dL 05/17/2025 9:44 AM [facility] ([facility]) Calcium 8.6 8.6 - 10.3 mg/dL 05/17/2025 9:44 AM [facility] ([facility]) AST 13 13 - 39 U/L 05/17/2025 9:44 AM [facility] ([facility]) ALT (SGPT) <3(L) 7 - 52 U/L 05/17/2025 9:44 AM [facility] ([facility]) Alkaline Phosphatase 68 34 - 104 U/L 05/17/2025 9:44 AM [facility] ([facility]) Total Protein 6.3 6.0 - 8.3 g/dL 05/17/2025 9:44 AM [facility] ([facility]) Albumin 3.4(L) 3.5 - 5.7 g/dL 05/17/2025 9:44 AM [facility] ([facility]) Total Bilirubin 0.5 0.3 - 1.0 mg/dL 05/17/2025 9:44 AM [facility] ([facility]) eGFR 38.0(L) >60.0 mL/min/1. 73m*2 05/17/2025 9:44 AM [facility] ([facility]) Comment:The [facility] s estimated glomerular filtration rate (eGFR) will [...] MD LAB BLOOD ORDERABLES Final Resul t [facility] ([facility]) [address] [place], [place] [id number] * (ABNORMAL) CBC auto differential (05/17/2025 8:59 AM EDT) Auto WBC 12.14(H) 4.00 - 10.60 10*3/uL 05/17/2025 9:21 AM EDT [facility] ([facility]) RBC 4.06(L) 4.20 - 5.70 10*6/uL 05/17/2025 9:21 AM EDT [facility] ([facility]) Hemoglobin 10.4(L) 13.0 - 17.0 g/dL 05/17/2025 9:21 AM EDT [facility] ([facility]) Hematocrit 34.2(L) 39.0 - 50.0 % 05/17/2025 9:21 AM EDT [facility] ([facility]) MCV 84.2 82.0 - 98.0 fL 05/17/2025 9:21 AM EDT [facility] ([facility]) MCH 25.6(L) 27.0 - 33.0 pg 05/17/2025 9:21 AM EDT [facility] ([facility]) MCHC 30.4(L) 32.0 - 35.0 g/dL 05/17/2025 9:21 AM EDT [facility] ([facility]) RDW 19.8(H) 11.5 - 15.0 % 05/17/2025 9:21 AM EDT [facility] ([facility]) Platelets 256 150 - 400 10*3/uL 05/17/2025 9:21 AM EDT [facility] ([facility]) nRBC % 0.0 0 % 05/17/2025 9:21 AM EDT [facility] ([facility]) Blood Venous blood specimen / Unknown Venipuncture / Unknown 05/17/2025 8:59 AM EDT 05/17/2025 9:12 AM EDT us Nikolas Gonzalez MD LAB BLOOD ORDERABLES Final Resul t [facility] ([facility]) [address] [place] [address] * LIMITED ECHOCARDIOGRAM (TTE) W/ LTD DOPPLER AND COLOR FLOW (05/17/2025 8:23 AM EDT) Anatomical Region Laterality Modality Other 05/17/2025 8:04 AM EDT Narrative 05/17/2025 11:46 AM EDT 1 1 [facility] Heart Station [address] [place] [address] [phone] (fax) Echocardiogram-[facility] Name: NADIR BETH Study Date: 05/17/2025 08:04 AM B/P: 115 mmHg/40 mmHg HR: Date of : 1940 Location: [facility] Height: 71 in. Age: 85 year(s) Patient [...] unchanged from 05/16/25. Procedure Staff Reading Group: [facility] Claims Examiner: Albert Bee RDCS Ordering Physician: NICOLE REYES Procedure Note Geri Delarosa MD - 05/17/2025 1 1 [facility] Heart Station [address] [place] [address] [phone] (fax) Echocardiogram-[facility] Name: NADIR BETH Study Date: 05/17/2025 08:04 AM B/P: 115 mmHg/40 mmHg HR: Date of : 1940 Location: [facility] Height: 71 in. Age: 85 year(s) Patient [...] unchanged from 05/16/25. Procedure Staff Reading Group: [facility] Claims Examiner: Albert Bee RDCS Ordering Physician: NICOLE REYES Nicole Reyes MD ECHO PROCEDURES Final Result * (ABNORMAL) POCT glucose meter (05/17/2025 7:16 AM EDT) Glucose POC 235(H) 70 - 105 mg/dL 05/17/2025 7:29 AM EDT [facility] ([facility]) Comment:[email or web address] Blood Capillary blood specimen / Unknown 05/17/2025 7:16 AM EDT 05/17/2025 7:29 AM EDT [facility] ([facility]) - 05/17/2025 7:29 AM EDT Waived Testing in the ED is performed under the ED CLIA certificate #[id number]. us Nikolas Gonzalez MD LAB BLOOD ORDERABLES Final Resul t Performing Organization Address [facility]/ZIP Co de Phone Number [facility]) [address] [place], [place] [id number] * (ABNORMAL) POCT glucose meter (05/16/2025 8:20 PM EDT) Glucose POC 374(H) 70 - 105 mg/dL 05/16/2025 8:31 PM EDT [facility] ([facility]) Comment:[email or web address] Blood Capillary blood specimen / Unknown 05/16/2025 8:20 PM EDT 05/16/2025 8:31 PM EDT [facility] ([facility]) - 05/16/2025 8:31 PM EDT Waived Testing in the ED is performed under the ED CLIA certificate #[id number]. us Mike Cisneros MD LAB BLOOD ORDERABLES Final R esult [facility]) [address] [place] [address] * (ABNORMAL) POCT glucose meter (05/16/2025 4:10 PM EDT) Glucose POC 292(H) 70 - 105 mg/dL 05/16/2025 4:32 PM EDT [facility] ([facility]) Comment:[email or web address] Blood Capillary blood specimen / Unknown 05/16/2025 4:10 PM EDT 05/16/2025 4:32 PM EDT Narrative [facility] ([facility]) - 05/16/2025 4:32 PM EDT Waived Testing in the ED is performed under the ED CLIA certificate #[id number]. us Mike Cisneros MD LAB BLOOD ORDERABLES Final R esult Performing Organization Address [facility] Co de Phone Number [facility]) [address] [place] [address] * (ABNORMAL) APTT (05/16/2025 3:04 PM EDT) aPTT 77.8(H) 25.0 - 35.0 Seconds 05/16/2025 3:56 PM EDT [facility] ([facility]) Comment:Clinical significanc e of the APTT is questionable in the presence of heparin. Blood Venous blood specimen / Unknown Venipuncture / Unknown 05/16/2025 3:04 PM EDT 05/16/2025 3:17 PM EDT us Mike Cisneros MD LAB BLOOD ORDERABLES Final R esult Performing Organization Address [facility] Co de Phone Number [facility]) [address] [place] [address] * (ABNORMAL) POCT glucose meter (05/16/2025 11:35 AM EDT) Glucose POC 254(H) 70 - 105 mg/dL 05/16/2025 11:46 AM EDT [facility] ([facility]) Comment:[email or web address] Blood Capillary blood specimen / Unknown 05/16/2025 11:35 AM EDT 05/16/2025 11:46 AM EDT Narrative [facility] ([facility]) - 05/16/2025 11:46 AM EDT Waived Testing in the ED is performed under the ED CLIA certificate #[id number]. Mike Cisneros MD LAB BLOOD ORDERABLES Final R esult [facility] ([facility]) [address] [place] [address] * ECG 12 lead (05/16/2025 11:31 AM EDT) Ventricular Rate 85 BPM GE MUSE QRS DURATION 146 ms GE MUSE QT Interval 424 ms GE MUSE QTC CALCULATION(BAZE TT) 504 ms GE MUSE R-Tipton -56 degrees GE MUSE T Wave Tipton 106 degrees GE MUSE 05/16/2025 11:2 6 [...] Kasandra DELAROSA SAMER J. (56) on 05/16/2025 4:16:44 PM Mike Cisneros MD ECG ORDERABLES Final Result GE MUSE * Blood culture, peripheral #2 (05/16/2025 11:08 AM EDT) Blood Culture No growth at 5 days DAVE 05/21/2025 12:01 PM EDT [facility] ([facility]) Blood Venous blood specimen / Unknown Venipuncture / Unknown 05/16/2025 11:08 AM EDT 05/16/2025 11:13 AM EDT García Tse MD LAB MICROBIOLOGY - GENERAL ORDE ROSEY Final Result [facility] ([facility]) [address] [place] [address] * Blood culture, peripheral #1 (05/16/2025 11:08 AM EDT) Blood Culture No growth at 5 days DAVE 05/21/2025 12:01 PM EDT [facility] ([facility]) Blood Venous blood specimen / Unknown Venipuncture / Unknown 05/16/2025 11:08 AM EDT 05/16/2025 11:16 AM EDT García Tse MD LAB MICROBIOLOGY - GENERAL ORDE ROSEY Final Result Performing Organization Address City/[facility] Co de Phone Number [facility] ([facility]) [address] [place] [address] * XR chest 1 view (05/16/2025 10:37 [...] right ventricle. Electronically signed: Mark Melendez MD. us García Tse MD IMG XR PROCEDURES Final Result * LIMITED ECHOCARDIOGRAM (TTE) W/ LTD DOPPLER AND COLOR FLOW (05/16/2025 10:32 AM EDT) Anatomical Region Laterality Modality Other 05/16/2025 10:0 5 AM EDT Narrative 05/16/2025 3:18 PM EDT 1 1 [place] [facility] Heart Station [address] [facility] [place] [address] (fax) Echocardiogram-[facility] Name: NADIR BETH Study Date: 05/16/2025 10:05 AM B/P: 125 mmHg/44 mmHg HR: Date of : 1940 Location: [facility] Height: 71 in. Age: 85 year(s) Patient [...] with tamponade physiology. Procedure Staff Reading Group: [facility] Claims Examiner: Katelyn Martinez RDCS Ordering Physician: Shamar Nolan MD Procedure Note Geri Delarosa MD - 05/16/2025 1 1 [facility] Heart Station [address] [place] [address] (fax) Echocardiogram-[facility] Name: NADIR BETH Study Date: 05/16/2025 10:05 AM B/P: 125 mmHg/44 mmHg HR: Date of : 1940 Location: [facility] Height: 71 in. Age: 85 year(s) Patient [...] with tamponade physiology. Procedure Staff Reading Group: [facility] Claims Examiner: Katelyn Martinez RDCS Ordering Physician: Shamar Nolan MD us Shamar Nolan MD CV ECHO PROCEDURES Final Result * ECG 12 lead (05/16/2025 10:10 AM EDT) Ventricular Rate 87 BPM GE MUSE QRS DURATION 152 ms GE MUSE QT Interval 412 ms GE MUSE QTC CALCULATION(BAZE TT) 495 ms GE MUSE R-Tipton -50 degrees GE MUSE T Wave [place] 100 degrees GE MUSE 05/16/2025 10:0 6 [...] GERI Penn (56) on 05/16/2025 4:16:18 PM Shamar Nolan MD ECG ORDERABLES Final Result Performing Organization Address [facility] Co de Phone Number GE MUSE * (ABNORMAL) POCT glucose meter (05/16/2025 8:16 AM EDT) Glucose POC 272(H) 70 - 105 mg/dL 05/16/2025 8:29 AM EDT [facility] ([facility]) Comment:[email or web address] Blood Capillary blood specimen / Unknown 05/16/2025 8:16 AM EDT 05/16/2025 8:29 AM EDT Narrative [facility] ([facility]) - 05/16/2025 8:29 AM EDT Waived Testing in the ED is performed under the ED CLIA certificate #[id number]. Mike Cisneros MD LAB BLOOD ORDERABLES Final R esult Performing Organization Address [facility] de Phone Number [facility] ([facility]) [address] [place] [address] * (ABNORMAL) APTT (05/16/2025 6:45 AM EDT) aPTT 63.8(H) 25.0 - 35.0 Seconds 05/16/2025 7:08 AM EDT [facility] ([facility]) Comment:Clinical significanc e of the APTT is questionable in the presence of heparin. Blood Venous blood specimen / Unknown Existing Catheter / Unknown 05/16/2025 6:45 AM EDT 05/16/2025 6:48 AM EDT Mike Cisneros MD LAB BLOOD ORDERABLES Final R esult Performing Organization Address [facility] Co de Phone Number [facility] ([facility]) [address] [place] [address] * (ABNORMAL) Activated clotting time (05/16/2025 5:08 AM EDT) Activated Clotting Time 284(H) 82 - 152 s 05/16/2025 5:08 AM EDT [facility] ([facility]) Blood Venous blood specimen / Unknown 05/16/2025 5:08 AM EDT 05/16/2025 5:08 AM EDT us Mike Cisneros MD LAB POINT OF CARE TE ST DOCKED DEVICE UNSOLICITED RESULTS Final Result [facility]) [facility] [place] [address] * (ABNORMAL) Activated clotting time (05/16/2025 5:08 AM EDT) Activated Clotting Time 240(H) 82 - 152 s 05/16/2025 5:08 AM EDT [facility] ([facility]) Blood Venous blood specimen / Unknown 05/16/2025 5:08 AM EDT 05/16/2025 5:08 AM EDT us Mike Cisneros MD LAB POINT OF CARE TE ST DOCKED DEVICE UNSOLICITED RESULTS Final Result [facility]) [address] [place] [address] * (ABNORMAL) Activated clotting time (05/16/2025 5:08 AM EDT) Activated Clotting Time 267(H) 82 - 152 s 05/16/2025 5:08 AM EDT [facility] ([facility]) Blood Venous blood specimen / Unknown 05/16/2025 5:08 AM EDT 05/16/2025 5:08 AM EDT us Mike Cisneros MD LAB POINT OF CARE TE ST DOCKED DEVICE UNSOLICITED RESULTS Final Result Performing Organization Address [facility]/ZIP Co de Phone Number [facility] ([facility]) [address] [place] [address] * (ABNORMAL) Activated clotting time (05/16/2025 5:08 AM EDT) Activated Clotting Time 283(H) 82 - 152 s 05/16/2025 5:08 AM EDT [facility] ([facility]) Blood Venous blood specimen / Unknown 05/16/2025 5:08 AM EDT 05/16/2025 5:08 AM EDT Mike Cisneros MD LAB POINT OF CARE TE ST DOCKED DEVICE UNSOLICITED RESULTS Final Result Performing Organization Address [facility] Co de Phone Number [facility] ([facility]) [address] [place] [address] * (ABNORMAL) Basic metabolic panel (05/16/2025 3:10 AM EDT) Sodium 140 136 - 145 mmol/L 05/16/2025 3:52 AM EDT [facility] ([facility]) Potassium 4.2 3.5 - 5.1 mmol/L 05/16/2025 3:52 AM EDT [facility] ([facility]) Chloride 103 98 - 107 mmol/L 05/16/2025 3:52 AM EDT [facility] ([facility]) CO2 22 21 - 31 mmol/L 05/16/2025 3:52 AM EDT [facility] ([facility]) BUN 41(H) 7 - 25 mg/dL 05/16/2025 3:52 AM EDT [facility] ([facility]) Creatinine 1.71(H) 0.70 - 1.30 mg/dL 05/16/2025 3:52 AM EDT [facility] ([facility]) Glucose 222(H) 70 - 100 mg/dL 05/16/2025 3:52 AM EDT [facility] ([facility]) Calcium 8.6 8.6 - 10.3 mg/dL 05/16/2025 3:52 AM EDT [facility] ([facility]) Anion Gap 19 7 - 20 mmol/L 05/16/2025 3:52 AM EDT [facility] ([facility]) eGFR 38.5(L) >60.0 mL/min/1. 73m*2 05/16/2025 3:52 AM EDT [facility] ([facility]) Comment:[facility] s estimated glomerular filtration rate (eGFR) will [...] BUN/Creatinine Ratio 24.0 12/2024 3:52 AM EDT [facility] ([facility]) Blood Venous blood specimen / Unknown Existing Catheter / Unknown 05/16/2025 3:10 AM EDT 05/16/2025 3:27 AM EDT us Julio Cesar Medina MD LAB BLOOD ORDERABLES Final Resul t [facility] ([facility]) [address] [place] [address] * (ABNORMAL) CBC (05/16/2025 3:10 AM EDT) Auto WBC 14.93(H) 4.00 - 10.60 10*3/uL 05/16/2025 3:38 AM EDT [facility] ([facility]) RBC 3.94(L) 4.20 - 5.70 10*6/uL 05/16/2025 3:38 AM EDT [facility] ([facility]) Hemoglobin 10.0(L) 13.0 - 17.0 g/dL 05/16/2025 3:38 AM EDT [facility] ([facility]) Hematocrit 33.1(L) 39.0 - 50.0 % 05/16/2025 3:38 AM EDT [facility] ([facility]) MCV 84.0 82.0 - 98.0 fL 05/16/2025 3:38 AM EDT [facility] ([facility]) MCH 25.4(L) 27.0 - 33.0 pg 05/16/2025 3:38 AM EDT [facility] ([facility]) MCHC 30.2(L) 32.0 - 35.0 g/dL 05/16/2025 3:38 AM EDT [facility] ([facility]) RDW 19.5(H) 11.5 - 15.0 % 05/16/2025 3:38 AM EDT [facility] ([facility]) Platelets 306 150 - 400 10*3/uL 05/16/2025 3:38 AM EDT [facility] ([facility]) Blood Venous blood specimen / Unknown Existing Catheter / Unknown 05/16/2025 3:10 AM EDT 05/16/2025 3:27 AM EDT us Julio Cesar Medina MD LAB BLOOD ORDERABLES Final Resul t Performing Organization Address City/[facility]/ZIP Co de Phone Number [facility]) [address] [place], [place] [id number] * (ABNORMAL) POCT glucose meter (05/15/2025 10:27 PM EDT) Glucose POC 193(H) 70 - 105 mg/dL 05/15/2025 10:37 PM EDT [facility] ([facility]) Comment:[email or web address] Blood Capillary blood specimen / Unknown 05/15/2025 10:27 PM EDT 05/15/2025 10:37 PM EDT Narrative [facility]) - 05/15/2025 10:37 PM EDT Waived Testing in the ED is performed under the ED CLIA certificate #[id number]. us Mike Cisneros MD LAB BLOOD ORDERABLES Final R esult [facility]) [address] [place] [address] * (ABNORMAL) POCT glucose meter (05/15/2025 5:59 PM EDT) Pathologist [facility] Glucose POC 334(H) 70 - 105 mg/dL 05/15/2025 6:10 PM EDT [facility] ([facility]) Comment:[email or web address] Blood Capillary blood specimen / Unknown 05/15/2025 5:59 PM EDT 05/15/2025 6:10 PM EDT Narrative [facility] ([facility]) - 05/15/2025 6:10 PM EDT Waived Testing in the ED is performed under the ED CLIA certificate #[id number]. us Mike Cisneros MD LAB BLOOD ORDERABLES Final R esult [facility] ([facility]) [address] [place] [address] * ECG 12 lead (05/15/2025 3:35 PM EDT) [facility] Ventricular Rate 99 BPM GE MUSE QRS DURATION 146 ms GE MUSE QT Interval 358 ms GE MUSE QTC CALCULATION(BAZE TT) 459 ms GE MUSE R-Tipton -66 degrees GE MUSE T Wave Tipton 103 degrees GE MUSE 05/15/2025 2:37 PM [...] GERI Penn (56) on 05/15/2025 9:39:26 PM us Julio Cesar Medina MD ECG ORDERABLES Final Result GE MUSE * LIMITED ECHOCARDIOGRAM (TTE) W/ LTD DOPPLER AND COLOR FLOW (05/15/2025 2:34 PM EDT) Anatomical Region Laterality Modality Other 05/15/2025 12:4 6 PM EDT Narrative 05/15/2025 3:05 PM EDT 1 1 [facility] Heart Station [address] [place] [address] [phone] (fax) Echocardiogram-[facility] Name: NADIR BETH Study Date: 05/15/2025 12:46 PM B/P: 171 mmHg/100 mmHg HR: 87 bpm Date of : 1940 Location: [facility] Height: 72 in. Age: 85 year(s) Patient [...] effusion is seen. Procedure Staff Reading Group: [facility] Claims Examiner: SEAN Bailey, RDCS Ordering Physician: PROMISE PELAEZ Procedure Note Kyleigh Faulkner MD - 05/15/2025 1 1 [facility] Heart Station [address] [place] [address] [phone] (fax) Echocardiogram-[facility] Name: NADIR BETH Study Date: 05/15/2025 12:46 PM B/P: 171 mmHg/100 mmHg HR: 87 bpm Date of : 1940 Location: [facility] Height: 72 in. Age: 85 year(s) Patient [...] effusion is seen. Procedure Staff Reading Group: [facility] Claims Examiner: SEAN Bailey, RDCS Ordering Physician: PROMISE PELAEZ Promise Pelaez NUCLEAR WORKER TECHNICIAN CV ECHO PROCEDURES Final Resu lt * [...] the right common femoral artery using two 6-English ProGlide devices. Angio-Seal vascular closure in the left common femoral artery. Placement of SENTINEL cerebral embolic protection device. OPERATORS: Interventional Cardiology Equipment Installer: Mike Cisneros MD Cardiac Surgery Equipment Installer: Negro Lopez MD Head Start Assistant Teacher Interventional Cardiology Equipment Installer: Shamar Nolan METHODS: Procedure was explained to the patient with risks and benefits. he signed informed consent. he was brought to label designer in a fasting state. The procedure was performed in the cardiac label designer under conscious sedation. The right wrist area was prepped and draped in usual fashion. Access was obtained using ultrasound guidance and micropuncture technique in the right radial artery and a 6-English x 11 cm Hydrophilic sheath was placed. Verapamil was given through the sheath. Both groin areas, and the right neck area were prepped and draped in usual fashion. Ultrasound guidance was used for micropuncture access in the right internal jugular vein and a 6-English x 11 cm introducer sheath was secured in place. Micropuncture technique and ultrasound guidance were used for access in the right common femoral artery and inner cannula angiography was performed followed by upsizing to a 6-English x 11 cm sheath. The same was done for the access in the left common femoral artery. At this time, we proceeded with the preclosure in the right common femoral artery using 2 crossing Perclose devices and the access was then upsized over a wire to a 10-English sheath. A 5-English balloon-tipped pacemaker wire was advanced through the internal jugular vein sheath to the right ventricular apex and adequate capture was confirmed. Heparin was given intravenously and therapeutic ACT confirmed during the rest of the procedure and additional heparin given as needed. Through the left common femoral sheath, an angled 6-English pigtail catheter was then advanced to the ascending aorta and placed in the noncoronary cusp. Aortic root angiography was performed in the coplanar view as determined by prior CT scan measurements. A 6-English IM diagnostic catheter was then advanced through the right radial sheath and then navigated using an 0.035 inch wire to the ascending aorta and this was used to place an exchange length Grandslam 0.014 inch wire. The wire was advanced to the left carotid artery. A [place] device was then prepped using standard techniques and then advanced. The proximal filter was deployed in the innominate artery followed by deployment of the distal filter. The [place] device was then secured in place. The right common femoral access was then upsized using an exchange length Lunderquist wire [which was placed through a multipurpose catheter] to the 14-English Le E-sheath. The sheath was secured in place. A 6-English AL1 diagnostic catheter was advanced via the E-sheath, and using a straight stiff Glidewire, the aortic valve was crossed and the catheter was advanced in the left ventricular cavity, and using an exchange length J-wire, a 6-English angled pigtail catheter was advanced to make [...] was exchanged over the wire to a 6-English angled pigtail catheter which was advanced across [...] aortic/ventricular. The pigtail catheters were retracted. The [place] device was recaptured. At this stage, the procedure was concluded. An electrocardiogram was performed showing atrial fibrillation and new LBBB. Therefore, the temporary pacemaker wire was secured in place. The previously placed Perclose sutures were tightened in the right common femoral artery achieving good hemostasis. A 6-English Angioseal device was used for hemostasis in [...] Study Details Nonrheumatic aortic valve stenosis [I35.0] Promise Pelaez CNP CV CARDIAC CATH PROCEDURES Fi nal Result * (ABNORMAL) APTT (05/15/2025 11:34 AM EDT) aPTT 73.2(H) 25.0 - 35.0 Seconds 05/15/2025 12:00 PM EDT [facility] ([facility]) Comment:Clinical significanc e of the APTT is questionable in the presence of heparin. Blood Venous blood specimen / Unknown Venipuncture / Unknown 05/15/2025 11:34 AM EDT 05/15/2025 11:36 AM EDT Julio Cesar Medina MD LAB BLOOD ORDERABLES Final Resul t [facility] ([facility]) [address] [place] [address] * (ABNORMAL) POCT glucose meter (05/15/2025 11:23 AM EDT) Glucose POC 288(H) 70 - 105 mg/dL 05/15/2025 11:37 AM EDT [facility] ([facility]) Comment:[email or web address] Blood Capillary blood specimen / Unknown 05/15/2025 11:23 AM EDT 05/15/2025 11:37 AM EDT Narrative [facility] ([facility]) - 05/15/2025 11:37 AM EDT Waived Testing in the ED is performed under the ED CLIA certificate #[id number]. Julio Cesar Medina MD LAB BLOOD ORDERABLES Final Resul t [facility] ([facility]) [address] [place] [address] * XR transfer of outside films (05/15/2025 9:19 AM EDT) Narrative IMAGING - 05/15/2025 9:19 AM EDT This order has been auto-finalized and does not contain a result. Kodak Perez MD IMG XR PROCEDURES Final Result Performing Organization Address City/[facility]/ZIP Co de Phone Number IMAGING * CT transfer of outside films (05/15/2025 9:18 AM EDT) Narrative IMAGING - 05/15/2025 9:18 AM EDT This order has been auto-finalized and does not contain a result. Kodak Perez MD IMG CT PROCEDURES Final Result Performing Organization Address City/[facility] Co de Phone Number IMAGING * (ABNORMAL) POCT glucose meter (05/15/2025 7:55 AM EDT) [facility] Glucose POC 351(H) 70 - 105 mg/dL 05/15/2025 8:07 AM EDT [facility] ([facility]) Comment:[email or web address] Blood Capillary blood specimen / Unknown 05/15/2025 7:55 AM EDT 05/15/2025 8:06 AM EDT Narrative [facility] ([facility]) - 05/15/2025 8:07 AM EDT Waived Testing in the ED is performed under the ED CLIA certificate #[id number]. us Julio Cesar Medina MD LAB BLOOD ORDERABLES Final Resul t Performing Organization Address City/[facility]/ZIP Co de Phone Number [facility] ([facility]) [address] [place] [address] * (ABNORMAL) APTT (05/15/2025 3:39 AM EDT) aPTT 51.8(H) 25.0 - 35.0 Seconds 05/15/2025 4:32 AM EDT [facility] ([facility]) Comment:Clinical significanc e of the APTT is questionable in the presence of heparin. Blood Venous blood specimen / Unknown Venipuncture / Unknown 05/15/2025 3:39 AM EDT 05/15/2025 3:54 AM EDT Julio Cesar Medina MD LAB BLOOD ORDERABLES Final Resul t Performing Organization Address [facility] Co de Phone Number [facility] ([facility]) [address] [place] [address] * (ABNORMAL) CBC (05/15/2025 3:39 AM EDT) Auto WBC 12.04(H) 4.00 - 10.60 10*3/uL 05/15/2025 4:20 AM EDT [facility] ([facility]) RBC 4.08(L) 4.20 - 5.70 10*6/uL 05/15/2025 4:20 AM EDT [facility] ([facility]) Hemoglobin 10.3(L) 13.0 - 17.0 g/dL 05/15/2025 4:20 AM EDT [facility] ([facility]) Hematocrit 33.6(L) 39.0 - 50.0 % 05/15/2025 4:20 AM EDT [facility] ([facility]) MCV 82.4 82.0 - 98.0 fL 05/15/2025 4:20 AM EDT [facility] ([facility]) MCH 25.2(L) 27.0 - 33.0 pg 05/15/2025 4:20 AM EDT [facility] ([facility]) MCHC 30.7(L) 32.0 - 35.0 g/dL 05/15/2025 4:20 AM EDT [facility] ([facility]) RDW 19.0(H) 11.5 - 15.0 % 05/15/2025 4:20 AM EDT [facility] ([facility]) Platelets 306 150 - 400 10*3/uL 05/15/2025 4:20 AM EDT [facility] ([facility]) Blood Venous blood specimen / Unknown Venipuncture / Unknown 05/15/2025 3:39 AM EDT 05/15/2025 4:05 AM EDT us Julio Cesar Medina MD LAB BLOOD ORDERABLES Final Resul t [facility] ([facility]) [address] [place] [address] * (ABNORMAL) Basic metabolic panel (05/15/2025 3:39 AM EDT) Sodium 137 136 - 145 mmol/L 05/15/2025 4:28 AM EDT [facility] ([facility]) Potassium 4.5 3.5 - 5.1 mmol/L 05/15/2025 4:28 AM EDT [facility] ([facility]) Chloride 99 98 - 107 mmol/L 05/15/2025 4:28 AM EDT [facility] ([facility]) CO2 27 21 - 31 mmol/L 05/15/2025 4:28 AM EDT [facility] ([facility]) BUN 34(H) 7 - 25 mg/dL 05/15/2025 4:28 AM EDT [facility] ([facility]) Creatinine 1.61(H) 0.70 - 1.30 mg/dL 05/15/2025 4:28 AM EDT [facility] ([facility]) Glucose 255(H) 70 - 100 mg/dL 05/15/2025 4:28 AM EDT [facility] ([facility]) Calcium 8.9 8.6 - 10.3 mg/dL 05/15/2025 4:28 AM EDT [facility] ([facility]) Anion Gap 16 7 - 20 mmol/L 05/15/2025 4:28 AM EDT [facility] ([facility]) eGFR 41.4(L) >60.0 mL/min/1. 73m*2 05/15/2025 4:28 AM EDT [facility] ([facility]) Comment:[facility] s estimated glomerular filtration rate (eGFR) will [...] one group of individuals. BUN/Creatinine Ratio 21.1 11/2024 4:28 AM EDT [facility] ([facility]) Blood Venous blood specimen / Unknown Venipuncture / Unknown 05/15/2025 3:39 AM EDT 05/15/2025 4:04 AM EDT Julio Cesar Medina MD LAB BLOOD ORDERABLES Final Resul t [facility]) [address] [place] [address] * Red Top (05/14/2025 10:23 PM EDT) Extra Tube Hold for add-ons. 05/15/2025 12:01 AM EDT [facility] ([facility]) Comment:Auto resulted. Blood Venous blood specimen / Unknown 05/14/2025 10:23 PM EDT 05/14/2025 10:56 PM EDT us Julio Cesar Medina MD LAB BLOOD ORDERABLES Final Resul t [facility]) [address] [place] [address] * (ABNORMAL) APTT (05/14/2025 10:23 PM EDT) aPTT 57.1(H) 25.0 - 35.0 Seconds 05/14/2025 11:28 PM EDT [facility] ([facility]) Comment:Clinical significanc e of the APTT is questionable in the presence of heparin. Blood Venous blood specimen / Unknown Venipuncture / Unknown 05/14/2025 10:23 PM EDT 05/14/2025 10:56 PM EDT us Julio Cesar Medina MD LAB BLOOD ORDERABLES Final Resul t [facility] ([facility]) [address] [place] [address] * ECG 12 lead (05/14/2025 8:36 PM EDT) Ventricular Rate 67 BPM GE MUSE QRS DURATION 102 ms GE MUSE QT Interval 414 ms GE MUSE QTC CALCULATION(BAZE TT) 437 ms GE MUSE R-Tipton -30 degrees GE MUSE T Wave Tipton 28 degrees GE MUSE 05/14/2025 8:32 PM [...] for LVH, may be normal variant ( Tipton product ) Anterior infarct , age undetermined Abnormal ECG No previous ECGs available Confirmed by Kasandra DELAROSA SAMER J. (56) on 05/15/2025 9:35:53 PM us Promise Pelaez NUCLEAR WORKER TECHNICIAN ECG ORDERABLES Final Result NICHOLAS CONLEY * (ABNORMAL) POCT glucose meter (05/14/2025 8:19 PM EDT) Glucose POC 303(H) 70 - 105 mg/dL 05/14/2025 8:32 PM EDT [facility] ([facility]) Comment:[email or web address] Blood Capillary blood specimen / Unknown 05/14/2025 8:19 PM EDT 05/14/2025 8:32 PM EDT Narrative [facility] ([facility]) - 05/14/2025 8:32 PM EDT Waived Testing in the ED is performed under the ED CLIA certificate #[id number]. us Julio Cesar Medina MD LAB BLOOD ORDERABLES Final Resul t [facility] ([facility]) [address] [place] [address] * Vascular US carotid artery duplex bilateral [...] POCT glucose meter (05/14/2025 4:56 PM EDT) Glucose POC 254(H) 70 - 105 mg/dL 05/14/2025 5:07 PM EDT [facility] ([facility]) Comment:[email or web address] Blood Capillary blood specimen / Unknown 05/14/2025 4:56 PM EDT 05/14/2025 5:06 PM EDT Narrative [facility] ([facility]) - 05/14/2025 5:07 PM EDT Waived Testing in the ED is performed under the ED CLIA certificate #[id number]. us Julio Cesar Medina MD LAB BLOOD ORDERABLES Final Resul t Performing Organization Address City/[facility]/ZIP Co de Phone Number [facility]) [address] [place], [place] [id number] * Platelet count (05/14/2025 3:28 PM EDT) [facility] Platelets 297 150 - 400 10*3/uL 05/14/2025 3:45 PM EDT [facility] ([facility]) Blood Venous blood specimen / Unknown Venipuncture / Unknown 05/14/2025 3:28 PM EDT 05/14/2025 3:37 PM EDT us Ruy Amanda CNP LAB BLOOD ORDERABLES Final Resul t Performing Organization Address [facility]/ZIP Co de Phone Number [facility]) [address] [place] [address] * aPTT - baseline (05/14/2025 3:28 PM EDT) Pathologist [facility] aPTT 33.6 25.0 - 35.0 Seconds 05/14/2025 3:57 PM EDT [facility]) Comment:Clinical significanc e of the APTT is questionable in the presence of heparin. Blood Venous blood specimen / Unknown Venipuncture / Unknown 05/14/2025 3:28 PM EDT 05/14/2025 3:32 PM EDT us Ruy Amanda NUCLEAR WORKER TECHNICIAN LAB BLOOD ORDERABLES Final Resul t [facility] ([facility]) [address] [place] [address] * (ABNORMAL) POCT glucose meter (05/14/2025 12:13 PM EDT) Glucose POC 225(H) 70 - 105 mg/dL 05/14/2025 12:26 PM EDT [facility] ([facility]) Comment:[email or web address] Blood Capillary blood specimen / Unknown 05/14/2025 12:13 PM EDT 05/14/2025 12:26 PM EDT Narrative [facility] ([facility]) - 05/14/2025 12:26 PM EDT Waived Testing in the ED is performed under the ED CLIA certificate #[id number]. us Julio Cesar Medina MD LAB BLOOD ORDERABLES Final Resul t Performing Organization Address [facility]/ZIP Co de Phone Number [facility] ([facility]) [address] [facility] [place] [address] * (ABNORMAL) POCT glucose meter (05/14/2025 7:05 AM EDT) Glucose POC 209(H) 70 - 105 mg/dL 05/14/2025 7:19 AM EDT [facility] ([facility]) Comment:ooperac Blood Capillary blood specimen / Unknown 05/14/2025 7:05 AM EDT 05/14/2025 7:18 AM EDT Narrative [facility] ([facility]) - 05/14/2025 7:19 AM EDT Waived Testing in the ED is performed under the ED CLIA certificate #[id number]. us Julio Cesar Medina MD LAB BLOOD ORDERABLES Final Resul t [facility] ([facility]) [address] [place] [address] * Lavender Top (05/14/2025 3:38 AM EDT) Extra Tube Hold for add-ons. 05/14/2025 6:01 AM EDT [facility] ([facility]) Comment:Auto resulted. Blood Venous blood specimen / Unknown Venipuncture / Unknown 05/14/2025 3:38 AM EDT 05/14/2025 4:06 AM EDT us Julio Cesar Medina MD LAB BLOOD ORDERABLES Final Resul t [facility] ([facility]) [address] [place] [address] * (ABNORMAL) Basic metabolic panel (05/14/2025 3:38 AM EDT) Sodium 138 136 - 145 mmol/L 05/14/2025 4:26 AM EDT [facility] ([facility]) Potassium 3.8 3.5 - 5.1 mmol/L 05/14/2025 4:26 AM EDT [facility] ([facility]) Chloride 100 98 - 107 mmol/L 05/14/2025 4:26 AM EDT [facility] ([facility]) CO2 29 21 - 31 mmol/L 05/14/2025 4:26 AM EDT [facility] ([facility]) BUN 34(H) 7 - 25 mg/dL 05/14/2025 4:26 AM EDT [facility] ([facility]) Creatinine 1.74(H) 0.70 - 1.30 mg/dL 05/14/2025 4:26 AM EDT [facility] ([facility]) Glucose 186(H) 70 - 100 mg/dL 05/14/2025 4:26 AM EDT [facility] ([facility]) Calcium 8.4(L) 8.6 - 10.3 mg/dL 05/14/2025 4:26 AM EDT [facility] ([facility]) Anion Gap 13 7 - 20 mmol/L 05/14/2025 4:26 AM EDT [facility] ([facility]) eGFR 37.7(L) >60.0 mL/min/1. 73m*2 05/14/2025 4:26 AM EDT [facility] ([facility]) Comment:[facility] s estimated glomerular filtration rate (eGFR) will [...] individuals. BUN/Creatinine Ratio 19.5 04/17 4:26 AM EDT [facility] ([facility]) Blood Venous blood specimen / Unknown Venipuncture / Unknown 05/14/2025 3:38 AM EDT 05/14/2025 3:58 AM EDT Julio Cesar Medina MD LAB BLOOD ORDERABLES Final Resul t [facility] ([facility]) [address] [place] [address] * (ABNORMAL) POCT glucose meter (05/13/2025 8:55 PM EDT) [facility] Glucose POC 219(H) 70 - 105 mg/dL 05/13/2025 9:06 PM EDT [facility]) Comment:[email or web address] Blood Capillary blood specimen / Unknown 05/13/2025 8:55 PM EDT 05/13/2025 9:06 PM EDT Narrative [facility]) - 05/13/2025 9:06 PM EDT Waived Testing in the ED is performed under the ED CLIA certificate #[id number]. Julio Cesar Medina MD LAB BLOOD ORDERABLES Final Resul t Performing Organization Address City/[facility]/ZIP Co de Phone Number [facility]) [address] [place] [address] * (ABNORMAL) POCT glucose meter (05/13/2025 4:44 PM EDT) Glucose POC 277(H) 70 - 105 mg/dL 05/13/2025 4:55 PM EDT [facility] ([facility]) Comment:[email or web address] Blood Capillary blood specimen / Unknown 05/13/2025 4:44 PM EDT 05/13/2025 4:55 PM EDT [facility] ([facility]) - 05/13/2025 4:55 PM EDT Waived Testing in the ED is performed under the ED CLIA certificate #[id number]. us Julio Cesar Medina MD LAB BLOOD ORDERABLES Final Resul t Performing Organization Address [facility] Co de Phone Number [facility]) [address] [place] [address] * (ABNORMAL) POCT glucose meter (05/13/2025 11:37 AM EDT) Glucose POC 274(H) 70 - 105 mg/dL 05/13/2025 12:05 PM EDT [facility] ([facility]) Comment:[email or web address] Blood Capillary blood specimen / Unknown 05/13/2025 11:37 AM EDT 05/13/2025 12:05 PM EDT [facility] ([facility]) - 05/13/2025 12:05 PM EDT Waived Testing in the ED is performed under the ED CLIA certificate #[id number]. us Julio Cesar Medina MD LAB BLOOD ORDERABLES Final Resul t Performing Organization Address [facility]/ZIP Co de Phone Number [facility]) [address] [place] [address] * (ABNORMAL) POCT glucose meter (05/13/2025 7:04 AM EDT) Glucose POC 222(H) 70 - 105 mg/dL 05/13/2025 7:16 AM EDT [facility] ([facility]) Comment:[email or web address] Blood Capillary blood specimen / Unknown 05/13/2025 7:04 AM EDT 05/13/2025 7:16 AM EDT Narrative [facility] ([facility]) - 05/13/2025 7:16 AM EDT Waived Testing in the ED is performed under the ED CLIA certificate #[id number]. us Julio Cesar Medina MD LAB BLOOD ORDERABLES Final Resul t [facility] ([facility]) [address] [place] [address] * (ABNORMAL) CBC (05/13/2025 3:43 AM EDT) Auto WBC 10.18 4.00 - 10.60 10*3/uL 05/13/2025 4:12 AM EDT [facility] ([facility]) RBC 3.80(L) 4.20 - 5.70 10*6/uL 05/13/2025 4:12 AM EDT [facility] ([facility]) Hemoglobin 9.8(L) 13.0 - 17.0 g/dL 05/13/2025 4:12 AM EDT [facility] ([facility]) Hematocrit 31.3(L) 39.0 - 50.0 % 05/13/2025 4:12 AM EDT [facility] ([facility]) MCV 82.4 82.0 - 98.0 fL 05/13/2025 4:12 AM EDT [facility] ([facility]) MCH 25.8(L) 27.0 - 33.0 pg 05/13/2025 4:12 AM EDT [facility] ([facility]) MCHC 31.3(L) 32.0 - 35.0 g/dL 05/13/2025 4:12 AM EDT [facility] ([facility]) RDW 18.9(H) 11.5 - 15.0 % 05/13/2025 4:12 AM EDT [facility] ([facility]) Platelets 287 150 - 400 10*3/uL 05/13/2025 4:12 AM EDT [facility] ([facility]) Blood Venous blood specimen / Unknown Venipuncture / Unknown 05/13/2025 3:43 AM EDT 05/13/2025 4:01 AM EDT us Julio Cesar Medina MD LAB BLOOD ORDERABLES Final Resul t [facility] ([facility]) [address] [place] [address] * (ABNORMAL) Basic metabolic panel (05/13/2025 3:43 AM EDT) Sodium 138 136 - 145 mmol/L 05/13/2025 4:23 AM EDT [facility] ([facility]) Potassium 3.5 3.5 - 5.1 mmol/L 05/13/2025 4:23 AM EDT [facility] ([facility]) Chloride 99 98 - 107 mmol/L 05/13/2025 4:23 AM EDT [facility] ([facility]) CO2 29 21 - 31 mmol/L 05/13/2025 4:23 AM EDT [facility] ([facility]) BUN 32(H) 7 - 25 mg/dL 05/13/2025 4:23 AM EDT [facility] ([facility]) Creatinine 1.65(H) 0.70 - 1.30 mg/dL 05/13/2025 4:23 AM EDT [facility] ([facility]) Glucose 206(H) 70 - 100 mg/dL 05/13/2025 4:23 AM EDT [facility] ([facility]) Calcium 8.5(L) 8.6 - 10.3 mg/dL 05/13/2025 4:23 AM EDT [facility] ([facility]) Anion Gap 14 7 - 20 mmol/L 05/13/2025 4:23 AM EDT [facility] ([facility]) eGFR 40.2(L) >60.0 mL/min/1. 73m*2 05/13/2025 4:23 AM EDT [facility] ([facility]) Comment:The [facility] s estimated glomerular filtration rate (eGFR) will [...] individuals. BUN/Creatinine Ratio 19.4 04/16 4:23 AM EDT [facility] ([facility]) Blood Venous blood specimen / Unknown Venipuncture / Unknown 05/13/2025 3:43 AM EDT 05/13/2025 4:01 AM EDT us Julio Cesar Medina MD LAB BLOOD ORDERABLES Final Resul t Performing Organization Address City/[facility]/ZIP Co de Phone Number [facility]) [address] [place] [address] * (ABNORMAL) POCT glucose meter (05/12/2025 8:04 PM EDT) Glucose POC 275(H) 70 - 105 mg/dL 05/12/2025 8:16 PM EDT [facility]) Comment: Blood Capillary blood specimen / Unknown 05/12/2025 8:04 PM EDT 05/12/2025 8:16 PM EDT Narrative [facility]) - 05/12/2025 8:16 PM EDT Waived Testing in the ED is performed under the ED CLIA certificate #[id number]. us Julio Cesar Medina MD LAB BLOOD ORDERABLES Final Resul t Performing Organization Address City/[facility]/ZIP Co de Phone Number [facility]) [address] [place] [address] * (ABNORMAL) POCT glucose meter (05/12/2025 4:15 PM EDT) Glucose POC 285(H) 70 - 105 mg/dL 05/12/2025 4:26 PM EDT [facility] ([facility]) Comment:[email or web address] Blood Capillary blood specimen / Unknown 05/12/2025 4:15 PM EDT 05/12/2025 4:26 PM EDT [facility] ([facility]) - 05/12/2025 4:26 PM EDT Waived Testing in the ED is performed under the ED CLIA certificate #[id number]. Julio Cesar Medina MD LAB BLOOD ORDERABLES Final Resul t Performing Organization Address [facility] Co de Phone Number [facility]) [address] [place] [address] * (ABNORMAL) POCT glucose meter (05/12/2025 11:23 AM EDT) Glucose POC 332(H) 70 - 105 mg/dL 05/12/2025 11:34 AM EDT [facility] ([facility]) Comment:[email or web address] Blood Capillary blood specimen / Unknown 05/12/2025 11:23 AM EDT 05/12/2025 11:34 AM EDT [facility]) - 05/12/2025 11:34 AM EDT Waived Testing in the ED is performed under the ED CLIA certificate #[id number]. us Julio Cesar Medina MD LAB BLOOD ORDERABLES Final Resul t Performing Organization Address [facility] de Phone Number [facility]) [address] [place] [address] * Anti-Xa (Heparin Level) (05/12/2025 9:26 AM EDT) Anti-Xa (Heparin) 0.32 0.3 - 0.7 IU/mL 05/12/2025 10:52 AM EDT [facility] ([facility]) Comment:Rivaroxaban and Apix aban will interfere with the anti Xa assay used to monitor UFH and LMWH. Blood Venous blood specimen / Unknown Venipuncture / Unknown 05/12/2025 9:26 AM EDT 05/12/2025 10:21 AM EDT us Julio Cesar Medina MD LAB BLOOD ORDERABLES Final Resul t Performing Organization Address City/[facility]/ZIP Co de Phone Number [facility] ([facility]) [address] [place] [address] * (ABNORMAL) POCT glucose meter (05/12/2025 7:07 AM EDT) Glucose POC 214(H) 70 - 105 mg/dL 05/12/2025 7:19 AM EDT [facility] ([facility]) Comment:[email or web address] Blood Capillary blood specimen / Unknown 05/12/2025 7:07 AM EDT 05/12/2025 7:19 AM EDT Narrative [facility] ([facility]) - 05/12/2025 7:19 AM EDT Waived Testing in the ED is performed under the ED CLIA certificate #[id number]. us Julio Cesar Medina MD LAB BLOOD ORDERABLES Final Resul t Performing Organization Address [facility] Co de Phone Number [facility]) [address] [place] [address] * Lavender Top (05/12/2025 3:46 AM EDT) Extra Tube Hold for add-ons. 05/12/2025 6:01 AM EDT [facility] ([facility]) Comment:Auto resulted. Blood Venous blood specimen / Unknown Venipuncture / Unknown 05/12/2025 3:46 AM EDT 05/12/2025 4:06 AM EDT us Julio Cesar Medina MD LAB BLOOD ORDERABLES Final Resul t [facility] ([facility]) [address] [place] [address] * Anti-Xa (Heparin Level) (05/12/2025 3:46 AM EDT) Anti-Xa (Heparin) 0.42 0.3 - 0.7 IU/mL 05/12/2025 4:32 AM EDT [facility] ([facility]) Comment:Rivaroxaban and Apix aban will interfere with the anti Xa assay used to monitor UFH and LMWH. Blood Venous blood specimen / Unknown Venipuncture / Unknown 05/12/2025 3:46 AM EDT 05/12/2025 4:02 AM EDT us Julio Cesar Medina MD LAB BLOOD ORDERABLES Final Resul t [facility] ([facility]) [address] [place], [place] [id number] * (ABNORMAL) Basic metabolic panel (05/12/2025 3:46 AM EDT) Pathologist [facility] Sodium 138 136 - 145 mmol/L 05/12/2025 4:37 AM EDT [facility] ([facility]) Potassium 3.5 3.5 - 5.1 mmol/L 05/12/2025 4:37 AM EDT [facility] ([facility]) Chloride 99 98 - 107 mmol/L 05/12/2025 4:37 AM EDT [facility] ([facility]) CO2 29 21 - 31 mmol/L 05/12/2025 4:37 AM EDT [facility] ([facility]) BUN 36(H) 7 - 25 mg/dL 05/12/2025 4:37 AM EDT [facility] ([facility]) Creatinine 1.63(H) 0.70 - 1.30 mg/dL 05/12/2025 4:37 AM EDT [facility] ([facility]) Glucose 191(H) 70 - 100 mg/dL 05/12/2025 4:37 AM EDT [facility] ([facility]) Calcium 8.5(L) 8.6 - 10.3 mg/dL 05/12/2025 4:37 AM EDT [facility] ([facility]) Anion Gap 14 7 - 20 mmol/L 05/12/2025 4:37 AM EDT [facility] ([facility]) eGFR 40.8(L) >60.0 mL/min/1. 73m*2 05/12/2025 4:37 AM EDT [facility] ([facility]) Comment:[facility] s estimated glomerular filtration rate (eGFR) will [...] individuals. BUN/Creatinine Ratio 22.1 04/16 4:37 AM EDT [facility] ([facility]) Blood Venous blood specimen / Unknown Venipuncture / Unknown 05/12/2025 3:46 AM EDT 05/12/2025 4:06 AM EDT us Julio Cesar Medina MD LAB BLOOD ORDERABLES Final Resul t [facility]) [address] [place] [address] * (ABNORMAL) POCT glucose meter (05/11/2025 9:02 PM EDT) Glucose POC 306(H) 70 - 105 mg/dL 05/11/2025 9:13 PM EDT [facility] ([facility]) Comment:[email or web address] Blood Capillary blood specimen / Unknown 05/11/2025 9:02 PM EDT 05/11/2025 9:13 PM EDT Narrative [facility]) - 05/11/2025 9:13 PM EDT Waived Testing in the ED is performed under the ED CLIA certificate #[id number]. us Julio Cesar Medina MD LAB BLOOD ORDERABLES Final Resul t [facility]) [address] [place] [address] * (ABNORMAL) Anti-Xa (Heparin Level) (05/11/2025 8:42 PM EDT) Anti-Xa (Heparin) 0.27(L) 0.3 - 0.7 IU/mL 05/11/2025 10:07 PM EDT [facility] ([facility]) Comment:Rivaroxaban and Apix aban will interfere with the anti Xa assay used to monitor UFH and LMWH. Blood Venous blood specimen / Unknown Venipuncture / Unknown 05/11/2025 8:42 PM EDT 05/11/2025 9:25 PM EDT us Julio Cesar Medina MD LAB BLOOD ORDERABLES Final Resul t [facility]) [place] [address] * (ABNORMAL) POCT glucose meter (05/11/2025 4:42 PM EDT) Glucose POC 348(H) 70 - 105 mg/dL 05/11/2025 4:54 PM EDT [facility] ([facility]) Comment:[email or web address] Blood Capillary blood specimen / Unknown 05/11/2025 4:42 PM EDT 05/11/2025 4:54 PM EDT Narrative [facility]) - 05/11/2025 4:54 PM EDT Waived Testing in the ED is performed under the ED CLIA certificate #[id number]. us Julio Cesar Medina MD LAB BLOOD ORDERABLES Final Resul t [facility]) [place] [address] * CTA Abdomen Pelvis W IV Contrast [...] signed: Yenni Stafford MD. Promise Pelaez CNP IM CT PROCEDURES Final Resul t * CTA [...] 3 cusped view, anterior view, and no TRUCK SERVICE MANAGER-CAU view are saved in 3-D volume rendered [...] 3 cusped view, anterior view, and no TRUCK SERVICE MANAGER-CAU view are saved in 3-Dvolume rendered images. [...] Electronically signed: Yenni Stafford MD. Promise Pelaez [facility] IMG CT PROCEDURES Final Resul t * (ABNORMAL) POCT glucose meter (05/11/2025 11:35 AM EDT) Glucose POC 201(H) 70 - 105 mg/dL 05/11/2025 11:52 AM EDT [facility] ([facility]) Comment:[email or web address] Blood Capillary blood specimen / Unknown 05/11/2025 11:35 AM EDT 05/11/2025 11:52 AM EDT Narrative [facility] ([facility]) - 05/11/2025 11:52 AM EDT Waived Testing in the ED is performed under the ED CLIA certificate #[id number]. Julio Cesar Medina MD LAB BLOOD ORDERABLES Final Resul t [facility] ([facility]) [address] [place] [id number] * CORONARY ANGIOGRAPHY, RIGHT HEART CATH (05/11/2025 11:05 AM EDT) Anatomical Region Laterality Modality Other Narrative 05/11/2025 4:28 PM EDT PROCEDURE PHYSICIAN: Shamar Nolan MD Clinical Presentation: 85 y.o. Male with history of A-fib on Xarelto, hypertension, HFpEF, CKD, recent history of CVA 4 months ago, renal artery stenosis transferred from [facility] for acute on chronic HFpEF and [...] and a micropuncture access technique a 6 English sheath was placed in the right internal jugular vein. The Garza catheter was advanced under fluoroscopic and hemodynamic monitoring to the right atrium. Pressure obtained of the right atrium, right ventricle, pulmonary artery, pulmonary capillary position. Oxygen saturation drawn for the pulmonary artery and Mary cardiac with a cardiac index were calculated. 1% lidocaine was infiltrated over the left radial artery. A 6-English Terumo Glidesheath slender was placed in left [...] (ABNORMAL) POC Hb02% (05/11/2025 10:41 AM EDT) [facility] [id number]% 64.1(A) 90 - 95 % QC Pass/Fail Passed QC LOT # [id number] QC Expiration Date 73,126 SAMPLESITE nl Blood Venous blood specimen / Unknown 05/11/2025 10:41 AM EDT Narrative [facility] Schultz [place] - 05/14/2025 8:56 AM EDT Oper [id number] us Julio Cesar Medina MD POINT OF CARE TEST ENTER/EDIT OR DERABLES Final Result * Anti-Xa (Heparin Level) (05/11/2025 8:36 AM EDT) [facility] Anti-Xa (Heparin) 0.38 0.3 - 0.7 IU/mL 05/11/2025 9:15 AM EDT [facility] ([facility]) Comment:Rivaroxaban and Apix aban will interfere with the anti Xa assay used to monitor UFH and LMWH. Blood Venous blood specimen / Unknown Venipuncture / Unknown 05/11/2025 8:36 AM EDT 05/11/2025 8:44 AM EDT us Julio Cesar Medina MD LAB BLOOD ORDERABLES Final Resul t [facility] ([facility]) [address] [place] [address] * (ABNORMAL) POCT glucose meter (05/11/2025 7:48 AM EDT) Glucose POC 224(H) 70 - 105 mg/dL 05/11/2025 8:00 AM EDT [facility] ([facility]) Comment:[email or web address] Blood Capillary blood specimen / Unknown 05/11/2025 7:48 AM EDT 05/11/2025 8:00 AM EDT Narrative [facility] ([facility]) - 05/11/2025 8:00 AM EDT Waived Testing in the ED is performed under the ED CLIA certificate #[id number]. Julio Cesar Medina MD LAB BLOOD ORDERABLES Final Resul t Performing Organization Address City/[facility]/ZIP Co de Phone Number [facility] ([facility]) [place] [address] * Light Blue Top (05/11/2025 4:28 AM EDT) Pathologist [facility] Extra Tube Hold for add-ons. 05/11/2025 6:01 AM EDT [facility] ([facility]) Comment:Auto resulted. Blood Venous blood specimen / Unknown 05/11/2025 4:28 AM EDT 05/11/2025 4:32 AM EDT Julio Cesar Medina MD LAB BLOOD ORDERABLES Final Resul t [facility] ([facility]) [address] [place] [address] * (ABNORMAL) Hemoglobin A1c (05/11/2025 4:27 AM EDT) Hemoglobin A1C 9.3(H) 4.0 - 6.0 % 05/11/2025 1:51 PM EDT [facility] ([facility]) Estimated Average Glucose 220 mg/dL 05/11/2025 1:51 PM EDT [facility] ([facility]) Blood Venous blood specimen / Unknown Venipuncture / Unknown 05/11/2025 4:27 AM EDT 05/11/2025 4:37 AM EDT us Julio Cesar Medina MD LAB BLOOD ORDERABLES Final Resul t Performing Organization Address City/[facility] Co de Phone Number [facility]) [address] [place] [address] * Lipid panel (05/11/2025 4:27 AM EDT) Triglycerides 93 <150 mg/dL 05/11/2025 11:01 AM EDT [facility] ([facility]) Comment: TRIGLYCERIDE REFERENCE RANGE: 20 YEARS AND OLDER CARDIOVASCULAR RISK LESS THAN 150 mg/dL LOW RISK 150 TO 199 mg/dL BORDERLINE RISK 200 mg/dL AND GREATER HIGH RISK Cholesterol 187 120 - 200 mg/dL 05/11/2025 11:01 AM EDT [facility] ([facility]) LDL Calculated 99 0 - 160 mg/dL 05/11/2025 11:01 AM EDT [facility]) HDL 69 23 - 92 mg/dL 05/11/2025 11:01 AM EDT [facility]) Non HDL Cholesterol 118 05/11/2025 11:01 AM EDT [facility]) Total VLDL-C 19 0 - 40 mg/dL 05/11/2025 11:01 AM EDT [facility]) Cholesterol/HDL Ratio 2.7 mg/dL 05/11/2025 11:01 AM EDT [facility] ([facility]) Blood Venous blood specimen / Unknown Venipuncture / Unknown 05/11/2025 4:27 AM EDT 05/11/2025 4:37 AM EDT us Julio Cesar Medina MD LAB BLOOD ORDERABLES Final Resul t Performing Organization Address City/[facility]/ZIP Co de Phone Number [facility]) [address] [place] [address] * (ABNORMAL) CBC (05/11/2025 4:27 AM EDT) Auto WBC 11.58(H) 4.00 - 10.60 10*3/uL 05/11/2025 4:46 AM EDT [facility] ([facility]) RBC 3.84(L) 4.20 - 5.70 10*6/uL 05/11/2025 4:46 AM EDT [facility] ([facility]) Hemoglobin 9.9(L) 13.0 - 17.0 g/dL 05/11/2025 4:46 AM EDT [facility] ([facility]) Hematocrit 31.8(L) 39.0 - 50.0 % 05/11/2025 4:46 AM EDT [facility] ([facility]) MCV 82.8 82.0 - 98.0 fL 05/11/2025 4:46 AM EDT [facility] ([facility]) MCH 25.8(L) 27.0 - 33.0 pg 05/11/2025 4:46 AM EDT [facility] ([facility]) MCHC 31.1(L) 32.0 - 35.0 g/dL 05/11/2025 4:46 AM EDT [facility] ([facility]) RDW 19.0(H) 11.5 - 15.0 % 05/11/2025 4:46 AM EDT [facility] ([facility]) Platelets 312 150 - 400 10*3/uL 05/11/2025 4:46 AM EDT [facility] ([facility]) Blood Venous blood specimen / Unknown Venipuncture / Unknown 05/11/2025 4:27 AM EDT 05/11/2025 4:37 AM EDT us Julio Cesar Medina MD LAB BLOOD ORDERABLES Final Resul t [facility] ([facility]) [address] [place] [address] * (ABNORMAL) Basic metabolic panel (05/11/2025 4:27 AM EDT) Sodium 140 136 - 145 mmol/L 05/11/2025 5:02 AM [facility] ([facility]) Potassium 4.2 3.5 - 5.1 mmol/L 05/11/2025 5:02 AM [facility] ([facility]) Chloride 101 98 - 107 mmol/L 05/11/2025 5:02 AM [facility] ([facility]) CO2 28 21 - 31 mmol/L 05/11/2025 5:02 AM [facility] ([facility]) BUN 31(H) 7 - 25 mg/dL 05/11/2025 5:02 AM [facility] ([facility]) Creatinine 1.56(H) 0.70 - 1.30 mg/dL 05/11/2025 5:02 AM [facility] ([facility]) Glucose 237(H) 70 - 100 mg/dL 05/11/2025 5:02 AM [facility] ([facility]) Calcium 8.4(L) 8.6 - 10.3 mg/dL 05/11/2025 5:02 AM [facility] ([facility]) Anion Gap 15 7 - 20 mmol/L 05/11/2025 5:02 AM [facility] ([facility]) eGFR 43.0(L) >60.0 mL/min/1. 73m*2 05/11/2025 5:02 AM [facility] ([facility]) Comment:[facility] s estimated glomerular filtration rate (eGFR) will [...] individuals. BUN/Creatinine Ratio 19.9 04/16 5:02 AM [facility] ([facility]) Blood Venous blood specimen / Unknown Venipuncture / Unknown 05/11/2025 4:27 AM EDT 05/11/2025 4:37 AM EDT Julio Cesar Medina MD LAB BLOOD ORDERABLES Final Resul t Performing Organization Address [facility]/ZIP Co de Phone Number [facility] ([facility]) [address] [place] [address] * (ABNORMAL) Anti-Xa (Heparin Level) (05/11/2025 12:26 AM EDT) Anti-Xa (Heparin) 0.28(L) 0.3 - 0.7 IU/mL 05/11/2025 12:58 AM EDT [facility] ([facility]) Comment:Rivaroxaban and Apix aban will interfere with the anti Xa assay used to monitor UFH and LMWH. Blood Venous blood specimen / Unknown Venipuncture / Unknown 05/11/2025 12:26 AM EDT 05/11/2025 12:35 AM EDT us Julio Cesar Medina MD LAB BLOOD ORDERABLES Final Resul t Performing Organization Address [facility] Co de Phone Number [facility] ([facility]) [address] [place] [address] * (ABNORMAL) POCT glucose meter (05/10/2025 8:13 PM EDT) Glucose POC 237(H) 70 - 105 mg/dL 05/10/2025 8:24 PM EDT [facility] ([facility]) Comment:[id number] Blood Capillary blood specimen / Unknown 05/10/2025 8:13 PM EDT 05/10/2025 8:24 PM EDT Narrative [facility] ([facility]) - 05/10/2025 8:24 PM EDT Waived Testing in the ED is performed under the ED CLIA certificate #[id number]. us Julio Cesar Medina MD LAB BLOOD ORDERABLES Final Resul t Performing Organization Address City/[facility]/ZIP Co de Phone Number [facility] ([facility]) [address] [place] [address] * (ABNORMAL) Anti-Xa (Heparin Level) (05/10/2025 5:34 PM EDT) Anti-Xa (Heparin) 0.25(L) 0.3 - 0.7 IU/mL 05/10/2025 6:20 PM EDT [facility] ([facility]) Comment:Rivaroxaban and Apix aban will interfere with the anti Xa assay used to monitor UFH and LMWH. Blood Venous blood specimen / Unknown Venipuncture / Unknown 05/10/2025 5:34 PM EDT 05/10/2025 5:59 PM EDT Julio Cesar Medina MD LAB BLOOD ORDERABLES Final Resul t Performing Organization Address City/[facility]/ZIP Co de Phone Number [facility] ([facility]) [address] [place] [address] * (ABNORMAL) POCT glucose meter (05/10/2025 4:23 PM EDT) [facility] Glucose POC 159(H) 70 - 105 mg/dL 05/10/2025 4:34 PM EDT [facility] ([facility]) Comment:[email or web address] Blood Capillary blood specimen / Unknown 05/10/2025 4:23 PM EDT 05/10/2025 4:34 PM EDT Narrative [facility]) - 05/10/2025 4:34 PM EDT Waived Testing in the ED is performed under the ED CLIA certificate #[id number]. us Julio Cesar Medina MD LAB BLOOD ORDERABLES Final Resul t [facility]) [address] [place] [address] * (ABNORMAL) Anti-Xa (Heparin Level) (05/10/2025 2:10 PM EDT) [facility] Anti-Xa (Heparin) 0.21(L) 0.3 - 0.7 IU/mL 05/10/2025 2:56 PM EDT [facility] ([facility]) Comment:Rivaroxaban and Apix aban will interfere with the anti Xa assay used to monitor UFH and LMWH. Blood Venous blood specimen / Unknown Venipuncture / Unknown 05/10/2025 2:10 PM EDT 05/10/2025 2:20 PM EDT us Julio Cesar Medina MD LAB BLOOD ORDERABLES Final Resul t Performing Organization Address [facility] [facility] Co de Phone Number [facility]) [address] [place] [address] * (ABNORMAL) POCT glucose meter (05/10/2025 11:17 AM EDT) Glucose POC 172(H) 70 - 105 mg/dL 05/10/2025 11:28 AM EDT [facility] ([facility]) Comment:[email or web address] Blood Capillary blood specimen / Unknown 05/10/2025 11:17 AM EDT 05/10/2025 11:28 AM EDT Narrative [facility]) - 05/10/2025 11:28 AM EDT Waived Testing in the ED is performed under the ED CLIA certificate #[id number]. us Julio Cesar Medina MD LAB BLOOD ORDERABLES Final Resul t Performing Organization Address [facility] Co de Phone Number [facility]) [address] [place] [address] * Platelet count (05/10/2025 10:51 AM EDT) Platelets 349 150 - 400 10*3/uL 05/10/2025 11:27 AM EDT [facility] ([facility]) Blood Venous blood specimen / Unknown Venipuncture / Unknown 05/10/2025 10:51 AM EDT 05/10/2025 11:18 AM EDT us Julio Cesar Medina MD LAB BLOOD ORDERABLES Final Resul t Performing Organization Address City/[facility]/ZIP Co de Phone Number [facility] ([facility]) [address] [place] [address] * aPTT - baseline (05/10/2025 10:51 AM EDT) aPTT 34.1 25.0 - 35.0 Seconds 05/10/2025 11:41 AM EDT [facility] ([facility]) Comment:Clinical significanc e of the APTT is questionable in the presence of heparin. Blood Venous blood specimen / Unknown Venipuncture / Unknown 05/10/2025 10:51 AM EDT 05/10/2025 11:15 AM EDT us Julio Cesar Medina MD LAB BLOOD ORDERABLES Final Resul t Performing Organization Address [facility] Co de Phone Number [facility] ([facility]) [address] [place] [address] * (ABNORMAL) High Sensitivity Troponin I (05/10/2025 10:51 AM EDT) High Sensitivity Troponin I 26(H) <20 ng/L 05/10/2025 11:46 AM EDT [facility] ([facility]) Blood Venous blood specimen / Unknown Venipuncture / Unknown 05/10/2025 10:51 AM EDT 05/10/2025 11:18 AM EDT us Estuardo Reed MD LAB BLOOD ORDERABLES Final Re sult Performing Organization Address City/[facility]/ZIP Co de Phone Number [facility]) [address] [place] [address] * COMPLETE ECHO (TTE) (05/10/2025 9:49 AM EDT) Anatomical Region Laterality Modality Other 05/10/2025 9:19 AM EDT Narrative 05/10/2025 10:24 AM EDT 1 1 [facility] Heart Station [address] [place] [address] [phone] (fax) Echocardiogram-[facility] Name: NADIR BETH Study Date: 05/10/2025 09:19 AM B/P: 178 mmHg/92 mmHg HR: 104 bpm Date of : 1940 Location: [facility] Height: 72 in. Age: 85 year(s) Patient [...] effusion is seen. Procedure Staff Reading Group: [facility] Claims Examiner: Bianca Shoots, BS, RDCS Ordering Physician: ESTUARDO REED Procedure Note Geri Delarosa MD - 05/10/2025 1 1 [facility] Heart Station [address] [place] [address] [phone] (fax) Echocardiogram-[facility] Name: NADIR BETH Study Date: 05/10/2025 09:19 AM B/P: 178 mmHg/92 mmHg HR: 104 bpm Date of : 1940 Location: [facility] Height: 72 in. Age: 85 year(s) Patient [...] effusion is seen. Procedure Staff Reading Group: [facility] Claims Examiner: SEAN Bailey, RDCS Ordering Physician: ESTUARDO REED Estuardo Reed MD CV ECHO PROCEDURES Final Resu lt * (ABNORMAL) B-type natriuretic peptide (05/10/2025 8:21 AM EDT) BNP 736(H) 0 - 100 pg/mL 05/10/2025 9:09 AM EDT [facility] ([facility]) Blood Venous blood specimen / Unknown Venipuncture / Unknown 05/10/2025 8:21 AM EDT 05/10/2025 8:40 AM EDT Azeem Green MD LAB BLOOD ORDERABLES Final Resul t Performing Organization Address City/[facility]/ZIP Co de Phone Number [facility]) [address] [place] [address] * (ABNORMAL) High Sensitivity Troponin I (05/10/2025 8:21 AM EDT) High Sensitivity Troponin I 21(H) <20 ng/L 05/10/2025 9:09 AM EDT [facility] ([facility]) Blood Venous blood specimen / Unknown Venipuncture / Unknown 05/10/2025 8:21 AM EDT 05/10/2025 8:39 AM EDT Estuardo Reed MD LAB BLOOD ORDERABLES Final Re sult [facility]) [address] [place] [address] * (ABNORMAL) POCT glucose meter (05/10/2025 7:17 AM EDT) Glucose POC 186(H) 70 - 105 mg/dL 05/10/2025 7:28 AM EDT [facility] ([facility]) Comment:[email or web address] Blood Capillary blood specimen / Unknown 05/10/2025 7:17 AM EDT 05/10/2025 7:28 AM EDT Narrative [facility] ([facility]) - 05/10/2025 7:28 AM EDT Waived Testing in the ED is performed under the ED CLIA certificate #[id number]. us Julio Cesar Medina MD LAB BLOOD ORDERABLES Final Resul t [facility] ([facility]) [address] [place] [address] * (ABNORMAL) CBC auto differential (05/10/2025 4:54 AM EDT) [facility] Auto WBC 10.50 4.00 - 10.60 10*3/uL 05/10/2025 5:41 AM EDT [facility] ([facility]) RBC 4.05(L) 4.20 - 5.70 10*6/uL 05/10/2025 5:41 AM EDT [facility] ([facility]) Hemoglobin 10.4(L) 13.0 - 17.0 g/dL 05/10/2025 5:41 AM EDT [facility] ([facility]) Hematocrit 33.3(L) 39.0 - 50.0 % 05/10/2025 5:41 AM EDT [facility] ([facility]) MCV 82.2 82.0 - 98.0 fL 05/10/2025 5:41 AM EDT [facility] ([facility]) MCH 25.7(L) 27.0 - 33.0 pg 05/10/2025 5:41 AM EDT [facility] ([facility]) MCHC 31.2(L) 32.0 - 35.0 g/dL 05/10/2025 5:41 AM EDT [facility] ([facility]) RDW 19.2(H) 11.5 - 15.0 % 05/10/2025 5:41 AM T [facility] ([facility]) Neutrophils % 79.1(H) 40.0 - 72.0 % 05/10/2025 5:41 AM [facility] ([facility]) Lymphocytes % 8.2(L) 20.0 - 45.0 % 05/10/2025 5:41 AM T [facility] ([facility]) Monocytes % 10.3 5.0 - 12.0 % 05/10/2025 5:41 AM [facility] ([facility]) Eosinophils % 1.4 0.0 - 6.0 % 05/10/2025 5:41 AM T [facility] ([facility]) Basophils % 0.4 0.0 - 1.0 % 05/10/2025 5:41 AM [facility] ([facility]) Neutrophils Absolute 8.31(H) 1.60 - 7.60 10*3/uL 05/10/2025 5:41 AM [facility] ([facility]) Lymphocytes Absolute 0.86(L) 1.20 - 4.00 10*3/uL 05/10/2025 5:41 AM [facility] ([facility]) Monocytes Absolute 1.08(H) 0.10 - 1.00 10*3/uL 05/10/2025 5:41 AM [facility] ([facility]) Eosinophils Absolute 0.15 0.00 - 0.50 10*3/uL 05/10/2025 5:41 AM T [facility] ([facility]) Basophils Absolute 0.04 0.00 - 0.20 10*3/uL 05/10/2025 5:41 AM [facility] ([facility]) Platelets 311 150 - 400 10*3/uL 05/10/2025 5:41 AM [facility] ([facility]) nRBC % 0.0 0 % 05/10/2025 5:41 AM [facility] ([facility]) Immature Granulocytes % 0.6 0.0 - 1.0 % 05/10/2025 5:41 AM [facility] ([facility]) Immature Granulocytes Absolute 0.06 0.00 - 0.20 10*3/uL 05/10/2025 5:41 AM EDT [facility] ([facility]) Blood Venous blood specimen / Unknown Venipuncture / Unknown 05/10/2025 4:54 AM EDT 05/10/2025 5:10 AM EDT us Estuardo Reed MD LAB BLOOD ORDERABLES Final Re sult [facility]) [address] [place] [address] * (ABNORMAL) High Sensitivity Troponin I (05/10/2025 4:54 AM EDT) [facility] High Sensitivity Troponin I 21(H) <20 ng/L 05/10/2025 5:49 AM EDT [facility]) Blood Venous blood specimen / Unknown Venipuncture / Unknown 05/10/2025 4:54 AM EDT 05/10/2025 5:08 AM EDT us Estuardo Reed MD LAB BLOOD ORDERABLES Final Re sult Performing Organization Address [facility] Co de Phone Number [facility]) [address] [place] [address] * TSH3 Reflex to FT4 (05/10/2025 4:54 AM EDT) Pathologist [facility] TSH 1.34 0.34 - 5.60 mIU/L 05/10/2025 5:49 AM EDT [facility]) Blood Venous blood specimen / Unknown Venipuncture / Unknown 05/10/2025 4:54 AM EDT 05/10/2025 5:08 AM EDT us Estuardo Reed MD LAB BLOOD ORDERABLES Final Re sult [facility]) [address] [place] [address] * Magnesium (05/10/2025 4:54 AM EDT) Magnesium 2.0 1.9 - 2.7 mg/dL 05/10/2025 5:49 AM EDT [facility] ([facility]) Blood Venous blood specimen / Unknown Venipuncture / Unknown 05/10/2025 4:54 AM EDT 05/10/2025 5:08 AM EDT us Estuardo Reed MD LAB BLOOD ORDERABLES Final Re sult [facility] ([facility]) [address] [place] [address] * (ABNORMAL) Comprehensive metabolic panel (05/10/2025 4:54 AM EDT) Sodium 139 136 - 145 mmol/L 05/10/2025 5:49 AM EDT [facility] ([facility]) Potassium 3.6 3.5 - 5.1 mmol/L 05/10/2025 5:49 AM EDT [facility] ([facility]) Chloride 101 98 - 107 mmol/L 05/10/2025 5:49 AM EDT [facility] ([facility]) CO2 26 21 - 31 mmol/L 05/10/2025 5:49 AM EDT [facility] ([facility]) Anion Gap 16 7 - 20 mmol/L 05/10/2025 5:49 AM EDT [facility] ([facility]) BUN 28(H) 7 - 25 mg/dL 05/10/2025 5:49 AM EDT [facility] ([facility]) Creatinine 1.45(H) 0.70 - 1.30 mg/dL 05/10/2025 5:49 AM EDT [facility] ([facility]) BUN/Creatinine Ratio 19.3 04/16 5:49 AM EDT [facility] ([facility]) Glucose 156(H) 70 - 100 mg/dL 05/10/2025 5:49 AM EDT [facility] ([facility]) Calcium 8.5(L) 8.6 - 10.3 mg/dL 05/10/2025 5:49 AM EDT [facility] ([facility]) AST 14 13 - 39 U/L 05/10/2025 5:49 AM EDT [facility] ([facility]) ALT (SGPT) 7 7 - 52 U/L 05/10/2025 5:49 AM EDT [facility] ([facility]) Alkaline Phosphatase 72 34 - 104 U/L 05/10/2025 5:49 AM EDT [facility] ([facility]) Total Protein 6.2 6.0 - 8.3 g/dL 05/10/2025 5:49 AM EDT [facility] ([facility]) Albumin 3.5 3.5 - 5.7 g/dL 05/10/2025 5:49 AM EDT [facility] ([facility]) Total Bilirubin 0.4 0.3 - 1.0 mg/dL 05/10/2025 5:49 AM EDT [facility] ([facility]) eGFR 46.9(L) >60.0 mL/min/1. 73m*2 05/10/2025 5:49 AM EDT [facility] ([facility]) Comment:[facility] s estimated glomerular filtration rate (eGFR) will [...] MD LAB BLOOD ORDERABLES Final Re sult [facility] ([facility]) [address] [place] [address] documented in this encounter Visit Diagnoses Diagnosis Chest pain- Primary Unspecified chest pain Chest pain Unspecified chest pain Angina pectoris, unstable ([facility]) Intermediate coronary syndrome Acute diastolic congestive heart failure ([facility]/HCC) Chest pain due to myocardial ischemia, unspecified ischemic chest pain type 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) Aortic stenosis, severe LBBB (left bundle branch block) Other left bundle branch block Cardiac arrhythmia, unspecified cardiac arrhythmia type Palpitations Primary hypertension Unspecified essential hypertension Pleural effusion Unspecified pleural effusion Primary hypertension Unspecified essential hypertension Acute congestive heart failure ([facility]/HCC) Congestive heart failure, unspecified History of CVA (cerebrovascular accident) Transient ischemic attack (TIA), and cerebral infarction without residual deficits Type 2 diabetes mellitus, with long-term current use of insulin ([facility]) Other hyperlipidemia Chronic atrial fibrillation ([facility]) Atrial fibrillation Angina pectoris, unstable ([facility]) Intermediate coronary syndrome Chronic kidney disease Chronic kidney disease, unspecified Elevated troponin Other abnormal blood chemistry 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 Angina pectoris, unstable ([facility]) Intermediate coronary syndrome Acute diastolic congestive heart failure ([facility]) Nonrheumatic aortic valve stenosis documented in this encounter Admitting Diagnoses Diagnosis Chest pain Unspecified chest pain Angina pectoris, unstable ([facility]) Intermediate coronary syndrome 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) Aortic stenosis, severe documented in this encounter Administered Medications Inactive Administered Medications - up to 3 most recent administrations Medication Order MAR Action Action Date Dose Rate Site acetaminophen (Tylenol) tablet 650 mg 650 mg, oral, Every 6 hours PRN, mild pain (1-3 pain score), Starting on Wed05/16/25 at 1533, For 99 days Given 05/17/2025 9:11 AM EDT 650 mg Given 05/16/2025 3:41 PM EDT 650 mg ceFAZolin (Ancef) 2 g in sodium chloride 0.9 % 50 mL IVPB Administer over 30 Minutes, Continuous PRN, Starting on Wed05/15/25 at 1323, Intraprocedure New Bag 05/15/2025 1:23 PM EDT 2 g cholecalciferol (Vitamin D-3) tablet 1,000 Units 1,000 Units, oral, Daily, First dose on Wed05/10/25 at 1000 Given 05/17/2025 9:18 AM EDT 1,000 Units Given 05/16/2025 9:44 AM EDT 1,000 Units Given 05/15/2025 8:29 AM EDT 1,000 Units cloNIDine (Catapres) tablet 0.2 mg 0.2 mg, oral, 3 times daily, First dose on Sol 05/10/25 at 1000, For 99 days Given 05/17/2025 9:18 AM EDT 0.2 mg Given 05/16/2025 10:41 PM EDT 0.2 mg Given 05/16/2025 9:44 AM EDT 0.2 mg dapagliflozin propanediol (Farxiga) tablet 10 mg 10 mg, oral, Daily, First dose on [facility] 05/10/25 at 1000 Given 05/17/2025 9:18 AM [...] or tube feeding bolus) diphenhydrAMINE (BENADryl) injection As needed, Starting on Wed05/15/25 at 1313, Intraprocedure Given 05/15/2025 1:13 PM EDT 25 mg ezetimibe (Zetia) tablet 10 mg 10 mg, oral, Daily, First dose on [facility] 05/10/25 at 1000, For 99 days Given 05/17/2025 9:18 AM EDT 10 mg Given 05/16/2025 9:45 AM EDT 10 mg Given 05/15/2025 8:28 AM EDT 10 mg fentaNYL (Sublimaze) injection As needed, Starting on Wed05/15/25 at 1314, Intraprocedure Given 05/15/2025 2:20 PM EDT 25 mcg Given 05/15/2025 1:55 PM EDT 25 mcg Given 05/15/2025 1:14 PM EDT 25 mcg furosemide (Lasix) tablet 40 mg 40 mg, [...] or tube feeding bolus) heparin (porcine) injection As needed, Starting on Wed05/15/25 at 1331, Intraprocedure Given 05/15/2025 2:08 PM EDT 3,000 Units Given 05/15/2025 1:53 PM EDT 4,000 Units Given 05/15/2025 1:42 PM EDT 2,000 Units heparin irrigation 2 units/mL in NS As needed, Starting on Wed05/15/25 at 1313, Intraprocedure Given 05/15/2025 1:45 PM EDT 1,000 mL Given 05/15/2025 1:13 PM EDT 2,000 mL hydrALAZINE (Apresoline) tablet 25 mg 25 mg, oral, 3 times daily, First dose on Sol 05/10/25 at 1000, [...] EDT 2 Units Le ft Lower Abdomen iodixanol (VISIPaque) 320 mg iodine/mL injection As needed, Starting on Wed05/15/25 at 1434, Intraprocedure Given 05/15/2025 2:34 PM EDT 66 mL labetalol (Normodyne) tablet 300 mg 300 mg, oral, 3 times daily, First dose on Wed05/10/25 at 1000 Given 05/17/2025 3:51 PM EDT 300 mg Given 05/17/2025 9:18 AM EDT 300 mg Given 05/16/2025 10:38 PM EDT 300 mg lidocaine (PF) (Xylocaine) 10 mg/mL (1 %) injection As needed, Starting on Wed05/15/25 at 1313, Intraprocedure Given 05/15/2025 1:13 PM EDT 40 mL melatonin tablet 2 mg 2 mg, oral, Nightly PRN, sleep, Starting on Wed05/13/25 at 1903, For 99 days Given 05/14/2025 9:01 PM EDT 2 mg Given 05/13/2025 9:07 PM EDT 2 mg midazolam (Versed) injection As needed, Starting on Wed05/15/25 at 1313, Intraprocedure Given 05/15/2025 1:55 PM EDT 1 mg Given 05/15/2025 1:13 PM EDT 1 mg mometasone-formoterol (Dulera 100) 100-5 mcg/actuation inhaler [...] Given 05/16/2025 1:11 AM EDT 1 drop primidone (Mysoline) tablet 50 mg 50 mg, oral, 2 times daily, First dose on Wed05/15/25 at 1000, For 99 days Given 05/17/2025 9:18 AM EDT 50 mg Given 05/16/2025 10:38 PM EDT 50 mg Given 05/16/2025 9:46 AM EDT 50 mg protamine injection Continuous PRN, Starting on Wed05/15/25 at 1437, Intraprocedure New Bag 05/15/2025 2:37 PM EDT 50 mg rivaroxaban (Xarelto) tablet 15 [...] Given 05/16/2025 4:20 PM EDT 15 mg sodium chloride 0.9 % infusion Continuous PRN, Starting on Wed05/15/25 at 1313, Intraprocedure New Bag 05/15/2025 1:13 PM EDT 100 mL/hr 100 mL/hr sodium chloride irrigation solution 0.9 % As needed, Starting on Wed05/15/25 at 1344, Intraprocedure Given 05/15/2025 1:44 PM EDT 1,000 mL spironolactone (Aldactone) tablet 25 mg 25 mg, [...] Given 05/15/2025 10:50 AM EDT 62.5 mcg verapamil (Isoptin) injection As needed, Starting on Wed05/15/25 at 1311, Intraprocedure Given 05/15/2025 1:11 PM EDT 1.5 mg documented in this encounter Active and Recently Administered Medications Times are shown in EDT. Scheduled Medication Order 05/15/2025 05/16/2025 05/17/2025 aspirin EC tablet 81 mg (CANCELED) 81 mg, oral, Daily, First dose on Wed05/10/25 at 1000, For 99 days, Do not crush, chew, or split. 0829 (Given - Provider: Cara Bullock RN - Comment: ok per Vibrator Equipment Tester) cholecalciferol (Vitamin D-3) tablet 1,000 Units 1,000 Units, oral, Daily, First dose on Wed05/10/25 at 1000 0829 (Given - Provider: Cara Bullock RN - Comment: ok per Vibrator Equipment Tester) 0944 (Given - Provider: Pauline Duran, BRANDEN) 0918 (Given - Provider: Yolanda Syed RN) cloNIDine (Catapres) tablet 0.2 mg 0.2 mg, oral, 3 times daily, First dose on Wed05/10/25 at 1000, For 99 days 0900 (Not Given - Provider: Cara Bullock RN - Reason: See Provider Order - Comment: hold per Vibrator Equipment Tester)1600 (Canceled Entry - Provider: Pauline Duran RN - Comment: pt in procedure)2240 (Given - Provider: Elvira Wheatley, BRANDEN) 0944 (Given - Provider: Pauline Duran RN)1600 (Not Given - Provider: Yolanda Syed RN - Reason: Other - Comment: per provider)224 (Given - Provider: Cee Watkins RN) 0918 (Given - Provider: Yolanda Syed RN)1600 (Not Given - Provider: Yolanda Syed RN - Reason: Other - Comment: per provider)2200 (Canceled Entry - Provider: Automatic Discharge Provider - Comment: Automatically canceled at discontinue of medication order) dapagliflozin propanediol (Farxiga) tablet 10 mg 10 mg, oral, Daily, First dose on Wed05/10/25 at 1000 0829 (Given - Provider: Cara Bullock RN - Comment: ok per Vibrator Equipment Tester) 0945 (Given - Provider: Pauline Duran RN) 0918 (Given - Provider: Yolanda Syed RN) ezetimibe (Zetia) tablet 10 mg 10 mg, oral, Daily, First dose on Wed05/10/25 at 1000, For 99 days 0828 (Given - Provider: Cara Bullock RN - Comment: ok per Vibrator Equipment Tester) 0945 (Given - Provider: Pauline Duran RN) 0918 (Given - Provider: Yolanda Syed RN) furosemide (Lasix) tablet 40 mg 40 mg, oral, Daily, First dose (after last modification) on Wed05/15/25 at 1000 0828 (Given - Provider: Cara Bullock RN - Comment: ok per Vibrator Equipment Tester) 0945 (Given - Provider: Pauline Duran RN) 0959 (Given - Provider: Yolanda Syed RN) hydrALAZINE (Apresoline) tablet 25 mg 25 mg, [...] Watkins RN) 0918 (Given - Provider: Yolanda Syed RN)1600 (Not Given - Provider: Yolanda Syed RN - Reason: Other - Comment: per provider)2200 (Canceled Entry - Provider: Automatic Discharge Provider - Comment: Automatically canceled at discontinue of medication order) insulin glargine (Lantus) injection vial 10 Units 10 Units, subcutaneous, 2 times daily, First dose on Sol 05/17/25 at 1000, For 99 days 0959 (Given [...] Yolanda Syed RN)1735 (Given - Provider: Yolanda Syed, BRANDEN) insulin lispro (HumaLOG) injection 0-8 Units(Linked Group [...] RN) 0918 (Given - Provider: Yolanda Syed, BRANDEN)1551 (Given - Provider: Yolanda Syed, BRANDEN)2200 (Canceled [...] RRT) 0932 (Given - Provider: Ness Alvarado, DELLA)223 (Given - Provider: Cee Watkins RN) 0959 (Given - Provider: Yolanda Syed, BRANDEN)1999 [...] Watkins RN)1031 (Stopped - Provider: Yolanda Syed, BRANDEN)1534 (New Bag - Provider: Yolanda Syed, BRANDEN)1934 (Due: Stopped - Provider: Yolanda Syed, BRANDEN) prednisoLONE acetate (Pred-Forte) 1 % ophthalmic suspension [...] not available) 0919 (Given - Provider: Yolanda Syed RN)2200 (Canceled [...] Atrial Fibrillation 1620 (Given - Provider: Yolanda Syed RN) 173 (Given - Provider: Yolanda Syed, BRANDEN) spironolactone (Aldactone) tablet 25 mg 25 mg, oral, Daily, First dose on Wed05/10/25 at 1000, For 99 days 0829 (Given - Provider: Cara Bullock RN - Comment: ok per Vibrator Equipment Tester) 0945 (Given - Provider: Pauline Duran RN) [...] Syed RN) 1735 (Given - Provider: Yolanda Syed, BRANDEN) umeclidinium (Incruse Ellipta) 62.5 mcg/actuation inhalation 62.5 mcg 62.5 mcg (1 puff), inhalation, Daily RT, First dose on Wed05/15/25 at 1000, For 99 days 1050 (Given - Provider: Cara Bullcok, BRANDEN) 0800 (Not Given - Provider: Ness Alvarado, DELLA - Reason: Medication not available) 0800 (Not [...] Cardiac/Stroke 0442 (Rate/Dose Change - Provider: Radha Ortiz, RN)1759 (Stopped - Provider: Elvira Wheatley RN - Comment: Arrived to MICU from procedure without this medication infusing. Unsure of exact time medication was stopped in label designer or prior to label designer.)1800 (Canceled Entry - Provider: Elvira Wheatley RN [...] Wheatley RN)0800 (Rate/Dose Verify - Provider: Pauline Duran RN)0833 (Rate/Dose Change - Provider: Pauline Duran RN)0900 (Rate/Dose Verify - Provider: Pauline Duran RN)1000 (Rate/Dose Verify - Provider: Pualine Duran RN)1100 (Rate/Dose Verify - Provider: Pauline [...] (Sublimaze) injection (CANCELED) As needed, Starting on Wed05/15/25 at 1314, Intraprocedure 1314 (Given - Provider: [...] mg, oral, Nightly PRN, sleep, Starting on 05/13/25 at 1903, For 99 days midazolam (Versed) injection (CANCELED) As needed, Starting on Wed05/15/25 at 1313, Intraprocedure 1313 (Given - Provider: Colleen Del Cid RN)1355 (Given - Provider: Colleen Del Cid RN) polyethylene glycol (Glycolax) packet 17 g 17 g, oral, Daily PRN, constipation, Starting on Sol 05/10/25 at 0405, For 99 days protamine injection [...] bolus) documented in this encounter Care Teams Doughnut Glazier Relationship Specialty [place] [address] [place] [address] PCP - General Family Medicine 05/10/25 Pj Sung MD [address] [place] [address] 05/10/25 documented as of this encounter
--- OUTSIDE RECORDS SUMMARY | 2025-05-28 13:00 | XMS_ITS | Encounter Summary ---
Author Organization [facility] Address [address] [place] [address] Care Team Providers Care Maintenance Technician 2Nd Shift Name Role Phone Pj Sung MD Primary Care Provider [phone] Pj Sung MD Unavailable Reason for Referral * (Routine) - Pending Review Specialty Diagnoses / Procedures Referred By Contnery t Referred To Contact Diagnoses LBBB (left bundle branch block) Procedures ECG 12 lead unit performed Ruy Amanda CNP [address] [place] [address] Phone: tel: fax: Referral ID Status Reason Start Date Expiration Date V isits Requested Visits Authorized [id number] Pending Review 05/28/2025 05/28/2026 1 1 Encounter Details Date Type Department Care Team (Late st Contact Info) Description 05/28/2025 1:00 PM EDT Office Visit [facility] [address] [place] [phone] Ruy Amanda CNP [address], [place] [phone] S/P TAVR (transcatheter aortic valve replacement) (Primary Dx); Nonrheumatic aortic valve stenosis; LBBB (left bundle branch block); Chronic heart failure with preserved ejection fraction (CMS/HCC); Paroxysmal atrial fibrillation (CMS/HCC); Stage 3b chronic kidney disease (CMS/HCC); Coronary artery disease involving [place] coronary artery of [place] heart without angina pectoris; Mixed hyperlipidemia; Benign hypertensive heart disease with heart failure (CMS/HCC) Social History Tobacco Use Types Packs/Day Years Used Date Smoking Tobacco: Former Cigarettes Smokeless Tobacco: Never Alcohol Use Standard Drinks/Week Comments Not Currently 0 (1 standard drink = 0.6 oz pur e alcohol) [facility] Utilities Answer Date Recorded In the past 12 months has th e to be, gas, oil, or water Munchkin threatened to shut off services in your [...] any time in the past 12 m [facility], were you homeless or living in a care home (including now)? No 05/10/2025 Hunger Vital Sign [...] Sign Reading Time Taken Comments Blood Pressure 124/67 05/28/2025 1:01 PM EDT Pulse 71 05/28/2025 1:01 PM EDT Temperature - - Respiratory Rate - - Oxygen Saturation 95% 05/28/2025 1:01 PM EDT Inhaled Oxygen Concentration - - Weight - - Height 182.9 cm (6') 05/28/2025 1:01 PM EDT Body Mass Index - - documented in this encounter Plan of Treatment Upcoming Encounters Date Type Department Care Team (Late st Contact Info) Description 06/18/2025 11:30 AM EDT Office Visit [facility] [address] [place] [address] Mike Cisneros MD [address] [facility] [address] [facility] [place] [phone] 07/11/2025 1:30 PM EDT Follow-Up [facility] [address] [place] [phone] Jeff Hutton MD [address] [place] [address] Scheduled Orders Name Type Priority Associated Diagnoses Orde r Schedule Basic metabolic panel Lab Routine S/P TAVR (transcatheter aortic valve replacement) Ordered: 05/28/2025 CBC and differential Lab Routine S/P TAVR (transcatheter aortic valve replacement) Ordered: 05/28/2025 Lipid panel Lab Routine Mixed hyperlipidemia Expected: 08/28/2025 (Approximate), Expires: 05/28/2026 CBC auto differential Lab Routine S/P TAVR (transcatheter aortic valve replacement) Ordered: 05/28/2025 documented as of this encounter Procedures Procedure Name Priority Date/Time Associated Diagnosis Comments ECG 12 LEAD UNIT PERFORMED Routine 05/28/2025 1:21 PM EDT LBBB (left bundle branch block) documented in this encounter Results * ECG 12 lead unit performed (05/28/2025 1:21 PM EDT) Ruy Amanda CNP ECG ORDERABLES Final Result documented in this encounter Visit Diagnoses Diagnosis S/P TAVR (transcatheter aortic valve replacement)- Primary Nonrheumatic aortic valve stenosis LBBB (left bundle branch block) Other left bundle branch block Chronic heart failure with preserved ejection fraction (CMS/HCC) Paroxysmal atrial fibrillation (CMS/HCC) Atrial fibrillation Stage 3b chronic kidney disease (CMS/HCC) Coronary artery disease involving [place] coronary artery of [place] heart without angina pectoris Mixed hyperlipidemia Benign hypertensive heart disease with heart failure (CMS/HCC) documented in this encounter Care Teams Maintenance Technician 2Nd Shift Relationship Specialty Start Date End Date Pj Sung MD [address] [place] [address] PCP - General Family Medicine 05/10/25 Pj Sung MD [address] [place] [address] 05/10/25 documented as of this encounter
--- OUTSIDE RECORDS SUMMARY | 2025-05-28 13:49 | XMS_ITS | Encounter Summary ---
Author Name [facility] [place] [facility] Address [address] [place] [address] Care Team Providers Care Cement Mason Maintenance Name Role Phone IRIS ROBLERO Primary Care [...] PLAN C Nov 15, 2016 PLAN C [id number] [phone] NADIR ALVARADO PATIENT MEDICARE (WNR) MEDICARE (M) PART A Jan 14, 2004 PART A [id number] NADIR ALVARADO PATIENT MEDICARE (WNR) MEDICARE (M) PART B Jan 14, 2004 PART B [id number] NADIR ALVARADO PATIENT Selected Encounter This section includes the information on record at [place] for the Encounter. Date/Time Encounter Type Encounter Description Reason Pro vider Source IHE Encounter Template Text not used by [place]
--- OUTSIDE RECORDS SUMMARY | 2025-05-28 13:49 | XMS_ITS | Encounter Summary ---
Author Organization [facility] Address [address] [place] [address] Care Team Providers Care Armature Winder [employer]otive Name Role Phone Pj Sung MD Primary Care Provider [phone] Pj Sung MD Unavailable Reason for Referral * Imaging (Routine) - Pending Review Specialty Diagnoses / Procedures Referred By Contac t Referred To Contact Cardiology Diagnoses 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 S/P TAVR (transcatheter aortic valve replacement) Procedures Transthoracic echo (TTE) complete Mike Cisneros MD [address] [facility] [address] [facility] [place] [address] Phone: tel: fax: Referral ID Status Reason Start Date Expiration Date Visits Requested Visits Authorized [id number] Pending Review Perform Procedure 05/23/2025 05/23/2026 1 1 Encounter Details Date Type Department Care Team (Late st Contact Info) Description 05/23/2025 Orders Only [facility] [address] [place] [phone] Stephanie Carl MA 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 (Primary Dx); S/P TAVR (transcatheter aortic valve replacement) Social History Tobacco Use Types Packs/Day Years Used Date Smoking Tobacco: Former Cigarettes Smokeless Tobacco: Never Alcohol Use Standard Drinks/Week Comments Not Currently 0 (1 standard drink = 0.6 oz pur e alcohol) [facility] Utilities Answer Date Recorded In the past [...] any time in the past 12 m [facility], were you homeless or living in a fpc (including now)? No 05/10/2025 Hunger Vital Sign [...] Description 06/18/2025 11:30 AM EDT Office Visit [facility] [address] [place] [phone] Mike Cisneros MD [address] [facility] [address] [facility] [place] [address] 07/11/2025 1:30 PM EDT Follow-Up [facility] [address] [place] [phone] Jeff Hutton MD [address] [place] [address] Scheduled Orders Name Type Priority Associated Diagnoses Order Schedule Transthoracic echo (TTE) complete Echocardiography Routine 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 S/P TAVR (transcatheter aortic valve replacement) Expected: 05/23/2025 (Approximate), Expires: 05/23/2027 documented as of this encounter Visit Diagnoses Diagnosis 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- Primary S/P TAVR (transcatheter aortic valve replacement) documented in this encounter Care Teams Armature [employer] Relationship Specialty Start Date End Date Pj Sung MD [address] [facility] [place] [address] PCP - General Family Medicine 05/10/25 Pj Sung MD [address] [facility] [place] [address] 05/10/25 documented as of this encounter
--- OUTSIDE RECORDS SUMMARY | 2025-05-28 13:51 | XMS_ITS | Encounter Summary ---
Author Organization [facility] Address [address] [place] [address] Care Team Providers Care Structural Metal Fabricator Apprentice Name Role Phone Pj Sung MD Primary Care Provider [phone] Pj Sung MD Primary Care Provider [phone] Pj Sung MD Unavailable Encounter Details Date Type Department Care Team (Late st Contact Info) Description 07/17/[address] [address] Cheyanne Ventura MA Social History Tobacco [...] Description 06/18/2025 11:30 AM EDT Office Visit [address] [address] Mike Cisneros MD [address] [facility] [place] [address] 07/11/2025 1:30 PM EDT Follow-Up [facility] [address] [place] [phone] Jeff Hutton MD [address] [place] [address] documented as of this encounter Visit Diagnoses Not on filedocumented in this encounter Care Teams Structural Metal Fabricator Apprentice Relationship Specialty [place] [address] [place] [address] PCP - General 07/17/22 05/09/25 Pj Sung MD [address] [place] [address] PCP - General Family Medicine 05/10/25 Pj Sung MD [address] [place] [address] 05/10/25 documented as of this encounter
--- OUTSIDE RECORDS SUMMARY | 2025-05-28 13:51 | XMS_ITS | Clinical Summary ---
Author Organization [facility] Address [address] [place] [address] Care Team Providers Care Structural Engineering Technician Name Role Phone Pj Sung MD Primary Care Provider [phone] Allergies Active Allergy Reactions Criticality Noted Date [...] 22 Active DULoxetine (Cymbalta) [address] capsuleIndications :Neurogenic pain Take 1 capsule (20 mg) by mouth at bedtime 90 capsule 1 08/01/20 24 Active Additional Information Patient not taking.Reported on 05/08/2025 rivaroxaban (Xarelto) 15 MG tablet Take 15 mg by mouth Active primidone (Mysoline) 250 MG tabletIndications: Benign essential tremor 1/2 tab BID 90 tablet 1 04/10/20 25 Active Additional Information Patient taking differently: 100 [...] 8 ounces of water or juice. Active fluticasone-salmet lexx (AirDuo RespiClick) 113-14 MCG/ACT inhaler Inhale 1 [...] Take 5 mg by mouth Daily Active budesonide-formote rol (Symbicort) 80-4.5 MCG/ACT inhaler Inhale 2 puffs in the morning and 2 puffs before bedtime. Rinse mouth with water after use to reduce aftertaste and incidence of candidiasis. Do not swallow. Active cetirizine (ZyrTEC) 10 MG chewable tablet Chew 10 mg Daily Active Active Problems Problem Noted Date Diagnosed [...] titration study Managed by [facility] Assessment & Plan (04/10/2025 1:49 PM EDT): Still have only PAPT. Get original PSG.0 Assessment & Plan (08/01/2024 11:49 AM EDT): Get original PSG (only received PAPT). Assessment & Plan (01/11/2024 2:07 PM EST): Get sleep studies for our records - [place]. Also send to [facility] (though not [...] B [address] [place] [address] Winnie Herron, VANESSA Benign essential tremor (Primary Dx); Neurogenic pain; Sequelae of cerebral infarction; Cervical paraspinal muscle spasm; JOSIAH (obstructive sleep apnea); Carotid stenosis, bilateral; Polyneuropathy 05/08/2025 Bamboo flowsheet [facility] [address] [place] [phone] Winnie Herron NP 05/08/2025 Travel 04/25/2025 Telephone [facility] [address] [facility] [address] [place] [phone] Mulu Edgar MA 04/12/2025 11:20 AM EDT Office Visit [facility] [address] [facility] [address] [place] [phone] Blaise Dc DPM Verruca plantaris (Primary Dx); Foot pain, right; Diabetes mellitus due to underlying condition with diabetic polyneuropathy, unspecified whether regional intermodal truck driver insulin use (HCC); Pain due to onychomycosis of toenails of both feet 04/12/2025 Bamboo flowsheet [facility] [address] [facility] [address] [place] [phone] Blaise Dc DPM 04/12/2025 Travel 04/10/2025 12:45 PM EDT Office Visit [facility] [address] [place] [address] Lenin Montoya MD Benign essential tremor (Primary Dx); Neurogenic pain; Sequelae of cerebral infarction; Cervical paraspinal muscle spasm; JOSIAH (obstructive sleep apnea); Carotid stenosis, bilateral 04/10/2025 Bamboo flowsheet [facility] [address] [place] [phone] Lenin Montoya MD 04/10/2025 Travel 03/08/2025 9:20 AM EDT Office Visit [facility] [address] [facility] [address] [place] [phone] Blaise Dc DPM Verruca plantaris (Primary Dx); Foot pain, right; Diabetes mellitus due to underlying condition with diabetic polyneuropathy, unspecified whether longterm insulin use (HCC); Pain due to onychomycosis of toenails of both feet 03/08/2025 Bamboo flowsheet [facility] [address] [facility] [address] [place] [address] Blaise Dc DPM 03/08/2025 Travel from Last [...] EDT Office Visit [facility] [address] [facility] [address] [place] [address] Blaise Dc DPM [address] [facility] 5 [place] [address] 07/10/2025 10:30 AM EDT Office Visit [facility] [address] [place] [address] Lenin Montoya MD [address] [facility] [address] [place] [address] 09/11/2025 1:15 PM EDT Office Visit [facility] [address] [place] [address] Mercedes Joy MD [address] [facility] [address] [place] [address] 10/09/2025 1:45 PM EST Office Visit [facility] [place] [address] [place] [address] Lenin Montoya MD [address] [facility] [address] [place] [address] Health Maintenance Due Date Last Done Comments Influenza Vaccine (#1) 2025 , 08/20/2023, 08/18/2022, Additional history exists Pneumococcal Vaccine: 65+ Years Completed 08/16/2017, 01/28/2015, 01/28/2015 Insurance MEDICARE [facility] Care Teams Structural Engineering Technician Relationship Specialty Start Date End Date Pj Sung MD [address] [place] [address] PCP - General Family Medicine 12/02/23
--- OUTSIDE RECORDS SUMMARY | 2025-05-28 13:52 | XMS_ITS | Clinical Summary ---
Author Organization [facility] Address [address] [place] [address] Care Team Providers Care Bed Placement Coordinator Name Role Phone Pj Sung MD Primary Care Provider [phone] Pj Sung MD Unavailable Allergies Active Allergy Reactions Criticality Noted Date Comments Aminolevulinic Acid Hcl Unknown 05/10/2025 Iodinated Contrast Media 07/17/2022 Iodinated Contrast Media Unknown 05/10/2025 Nitroglycerin 07/17/2022 Nitroglycerin Other 05/10/2025 hypotension Simvastatin Unknown 05/10/2025 Lbrqtyq-Jyr-Hub Reductase Inhibitors 07/17/2022 Medications aspirin 81 mg [...] MOUTH DAILY AFTER COMPLETING THE ANTIBIOTICS COURSE 023 Active dicyclomine (Bentyl) 10 mg capsule Take [...] magnesium tablet Take 250 mg by mouth. 020 Active ALPRAZolam (Xanax) 0.25 mg tablet Take 1 tablet by mouth Twice daily at 6am and 6pm. 024 Active furosemide (Lasix) 40 mg tabletIndications :Pulmonary hypertension (CMS/HCC),Chronic diastolic congestive heart failure (CMS/HCC) Take 2 tablets (80 mg) by mouth two times daily. 360 tablet 3 025 2025 Active prednisoLONE acetate (Pred-Forte) 1 % ophthalmic suspension INSTILL 1 DROP INTO RIGHT EYE 3 TIMES A DAY DIRECTED 025 Active cholecalciferol (Vitamin D3) 25 MCG (1000 UT) capsuleIndication s:Vitamin D deficiency Take 5 capsules (125 mcg) by mouth in the morning. 150 capsule 11 025 2025 Active Additional Information Patient not taking.Reason: Other, Reported on 05/28/2025 rivaroxaban (Xarelto) 15 mg tablet Take 15 [...] 50 mg by mouth in the morning. 025 Active linaGLIPtin (Tradjenta) 5 mg tablet Take 5 mg by mouth in the morning. Active b complex 0.4 mg tablet Take 1 tablet by mouth in the morning. Active aspirin 81 mg EC tablet Take 81 mg by mouth in the morning. Active dicyclomine (Bentyl) 10 mg capsule Take 10 mg by mouth two times daily. Active ezetimibe (Zetia) 10 mg tablet Take 10 mg by mouth in the morning. Active glimepiride (Amaryl) 4 mg tablet Take 8 mg by mouth before breakfast. Active labetalol (Normodyne) 300 mg tablet Take 300 mg by mouth three times daily. Active pioglitazone (Actos) 45 mg tablet Take 45 mg by mouth in the morning. Active potassium chloride CR (Klor-Con M10) 10 mEq ER tablet Take 20 mEq by mouth in the morning. Do not crush or chew. Active omeprazole (PriLOSEC) [address] capsule Take 20 mg by mouth before breakfast. Do not crush or chew. Active primidone (Mysoline) 50 mg tablet Take 50 mg by mouth two times daily. Active acetaminophen (Tylenol) 500 mg tablet Take 1,000 mg by mouth every 6 (six) hours if needed for mild pain (1-3 pain score). Active bacitracin 500 unit/gram ointment Apply 1 Application topically two times daily. Active calcium polycarbophil (Fibercon) 625 mg tablet Take 1,250 mg by mouth in the morning. Active cholecalciferol (Vitamin D-3) 25 MCG (1000 UT) capsule Take 25 mcg by mouth in the morning. Active cloNIDine (Catapres) 0.2 mg tablet Take 0.2 mg by mouth three times daily. Active fluticasone propion-salmetero L 113 mcg-14 mcg/actuation aero powdr breath act w/sensor Inhale 1 Inhalation two times daily. Active furosemide (Lasix) 40 mg tablet Take 40 mg by mouth in the morning. Active insulin lispro (HumaLOG) 100 unit/mL injection pen Inject 2-10 Units under the skin with breakfast, with lunch, and with evening meal. Active linaGLIPtin (Tradjenta) 5 mg tablet Take 5 mg by mouth in the morning. Active loratadine (Claritin) 10 mg tablet Take 10 mg by mouth in the morning. Active magnesium oxide 500 mg magnesium tablet Take 500 mg by mouth three times daily. Active metFORMIN (Glucophage) 500 mg tablet Take 500 mg by mouth three times daily. Active polyethylene glycol (Glycolax) oral powder Take 17 g by mouth if needed each day (constipation) . Active psyllium (Metamucil) 0.52 gram capsule Take 1.52 g by mouth in the morning. Active spironolactone (Aldactone) 25 mg tablet Take 25 mg by mouth in the morning. Active tamsulosin (Flomax) 0.4 mg 24 hr capsule Take 0.4 mg by mouth in the morning. Active tiotropium (Spiriva Respimat) 1.25 mcg/actuation inhaler Inhale 2 puffs in the morning. Active rivaroxaban (Xarelto) 15 mg tablet Take 15 mg by mouth daily with evening meal. Take with food. Active prednisoLONE acetate (Pred-Forte) 1 % ophthalmic suspension Administer 1 drop into the right eye two times daily. Active dapagliflozin propanediol (Farxiga) 10 mgIndications:Acu te diastolic congestive heart failure (CMS/HCC) Take 1 tablet (10 mg) by mouth in the morning. 025 2024 Active empagliflozin (Jardiance) 25 mg Take 25 mg by mouth in the morning. 2024 Discontinued(S top Taking at Discharge) amoxicillin-pot clavulanate (Augmentin) 875-125 mg tablet Take 1 tablet by mouth two times daily. 2024 Discontinued prednisoLONE acetate (Pred Mild) 0.12 % ophthalmic suspension Administer 1 drop into the right eye two times daily. 2024 Discontinued(E ntered in Error) hydrALAZINE (Apresoline) 25 mg tabletIndications :Primary hypertension Take 1 tablet (25 mg) by mouth three times daily. 025 2024 Discontinued(S top Taking at Discharge) amoxicillin-pot clavulanate (Augmentin) 875-125 mg tabletIndications :Pleural effusion Take 1 tablet by mouth two times daily for 3 days. 025 2024 Additional Information Patient not taking.Reported on 05/28/2025 Active Problems Problem Noted Date Diagnosed Date S/P TAVR (transcatheter aortic valve replacement ) 05/15/2025 Aortic stenosis, severe 05/15/2025 Chronic kidney disease 05/11/2025 Assessment & Plan (05/15/2025 1:32 PM EDT): Not sure baseline kidney function, creatinine today 1.61 Will decrease Lasix to 40 mg daily Assessment & Plan (05/14/2025 12:13 PM EDT): Not sure baseline kidney function, creatinine today 1.74 Will decrease Lasix to 40 mg daily Assessment & Plan (05/13/2025 10:52 AM EDT): Not sure baseline kidney function, creatinine today 1.65 Assessment & Plan (05/12/2025 12:32 PM EDT): Not sure baseline kidney function, creatinine today 1.63 Assessment & Plan (05/11/2025 5:43 PM EDT): Assessment & Plan (05/11/2025 4:23 PM EDT): Not sure baseline kidney function, creatinine today 1.56, will monitor Elevated troponin 05/11/2025 Assessment & Plan (05/15/2025 1:19 PM EDT): Highest troponin went up to 26 Likely combination of chronic kidney disease and CHF Assessment & Plan (05/14/2025 12:13 PM EDT): Highest troponin went up to 26 Likely combination of chronic kidney disease and CHF Assessment & Plan (05/13/2025 10:52 AM EDT): Highest troponin went up to 26 Likely combination of chronic kidney disease and CHF Assessment & Plan (05/12/2025 12:32 PM EDT): Highest troponin went up to 26 Likely combination of chronic kidney disease and CHF Assessment & Plan (05/11/2025 5:43 PM EDT): Assessment & Plan (05/11/2025 4:23 PM EDT): Highest troponin went up to 26 Likely combination of chronic kidney disease and CHF Primary hypertension 05/10/2025 Assessment & Plan (05/15/2025 1:19 PM EDT): Continue current clonidine 0.2/3 times daily, hydralazine 25/ 3 times daily and labetalol Assessment & Plan (05/14/2025 12:13 PM EDT): Continue current clonidine 0.2/3 times daily, hydralazine 25/ 3 times daily and labetalol Assessment & Plan (05/13/2025 10:52 AM EDT): Continue current clonidine 0.2 3 times daily, hydralazine 25 3 times daily and labetalol Assessment & Plan (05/12/2025 12:32 PM EDT): Continue current clonidine 0.2 3 times daily, hydralazine 25 3 times daily and labetalol Assessment & Plan (05/11/2025 5:43 PM EDT): Assessment & Plan (05/11/2025 4:23 PM EDT): Continue current clonidine 0.2 3 times daily, hydralazine 25 3 times daily and labetalol Assessment & Plan (05/10/2025 4:23 AM EDT): Adjust antihypertensives low-salt diet with renal insufficiency unable to start JAY or ARB Acute congestive heart failure 05/10/2025 Assessment & Plan (05/15/2025 1:32 PM EDT): Acute on chronic heart failure with preserved EF BNP of 736 Echo 05/10 showed EF preserved. Moderate AAS and AR, mild MR and TR Cardiac cath was done on 05/11: Moderate coronary artery disease and wedge pressure of 28 with cardiac output of 5.4 L/min cardiac index of 2.7 L/min/m Echo was done and showed EF appear [...] for CABG/AVR specially with history of CVA Assessment & Plan (05/14/2025 12:13 PM EDT): Acute on chronic heart failure with preserved EF BNP of 736 Echo 05/10 showed EF preserved. Moderate AAS and AR, mild MR and TR Cardiac cath was done on 05/11: Moderate coronary artery disease and wedge pressure of 28 with cardiac output of 5.4 L/min cardiac index of 2.7 L/min/m Echo was done and showed EF appear [...] bypass grafting/AVR specially with history of CVA Assessment & Plan (05/13/2025 10:52 AM EDT): Acute on chronic heart failure with preserved EF BNP of 736 Echo 05/10 showed EF preserved. Moderate AAS and AR, mild MR and TR Cardiac cath was done on 05/11: Moderate coronary artery disease and wedge pressure of 28 with cardiac output of 5.4 L/min cardiac index of 2.7 L/min/m Echo was done and showed EF appear [...] bypass grafting/AVR specially with history of CVA Assessment & Plan (05/12/2025 12:32 PM EDT): Acute on chronic heart failure with preserved EF BNP of 736 Echo 05/10 showed EF preserved. Moderate AAS and AR, mild MR and TR Cardiac cath was done on 05/11: Moderate coronary artery disease and wedge pressure of 28 with cardiac output of 5.4 L/min cardiac index of 2.7 L/min/m Echo was done and showed EF appear [...] bypass grafting/AVR specially with history of CVA Assessment & Plan (05/11/2025 5:43 PM EDT): Assessment & Plan (05/11/2025 4:23 PM EDT): Acute on chronic heart failure with preserved EF BNP of 736 Echo 05/10 showed EF preserved. Moderate AAS and AR, mild MR and TR Patient scheduled for cardiac cath today Lasix 40 IV every 8 hours Continue goal-directed medical therapy Farxiga, labetalol, Aldactone Uptitrate meds after Cardiac cath Assessment & Plan (05/10/2025 4:23 AM EDT): Per review of chart patient has diastolic heart failure had history of pericardial effusion as well we will optimize guideline directed medical therapy with limitation due to renal insufficiency obtain echocardiogram cycle troponins cardiology to see him History of CVA (cerebrovascular accident) 2024 Assessment & Plan (05/15/2025 1:19 PM EDT): On aspirin and Zetia Assessment & Plan (05/14/2025 12:13 PM EDT): On aspirin and Zetia Assessment & Plan (05/13/2025 10:52 AM EDT): On aspirin and Zetia Assessment & Plan (05/12/2025 12:32 PM EDT): On aspirin and Zetia Assessment & Plan (05/11/2025 5:43 PM EDT): Assessment & Plan (05/11/2025 4:23 PM EDT): On aspirin statin with deconditioning and gait abnormality with fall risk PT OT to see him Assessment & Plan (05/10/2025 4:23 AM EDT): On aspirin statin with deconditioning and gait abnormality with fall risk PT OT to see him Type 2 diabetes mellitus, wi th long-term current use of insulin 05/10/2025 Assessment & Plan (05/15/2025 1:19 PM EDT): Continue sliding scale insulin A1c came back of 9.3 Assessment & Plan (05/14/2025 12:13 PM EDT): Continue sliding scale insulin A1c came back of 9.3 Assessment & Plan (05/13/2025 10:52 AM EDT): Continue sliding scale insulin A1c came back of 9.3 Assessment & Plan (05/12/2025 12:32 PM EDT): Continue sliding scale insulin A1c came back of 9.3 Assessment & Plan (05/11/2025 5:43 PM EDT): . No associated orders from this encounter found during lookback period of 72 hours. Assessment & Plan (05/11/2025 4:23 PM EDT): Insulin blood sugar check diet A1c came back of 9.3 Assessment & Plan (05/10/2025 4:23 AM EDT): Insulin blood sugar check diet Other hyperlipidemia 05/10/2025 Assessment & Plan (05/15/2025 1:19 PM EDT): Continue Zetia Assessment & Plan (05/14/2025 12:13 PM EDT): Continue Zetia Assessment & Plan (05/13/2025 10:52 AM EDT): Continue Zetia Assessment & Plan (05/12/2025 12:32 PM EDT): Continue Zetia Assessment & Plan (05/11/2025 5:43 PM EDT): . No associated orders from this encounter found during lookback period of 72 hours. Assessment & Plan (05/11/2025 4:23 PM EDT): Continue Zetia Assessment & Plan (05/10/2025 4:23 AM EDT): Antilipemic agents diet Chronic atrial fibrillation 05/10/2025 Assessment & Plan (05/15/2025 1:19 PM EDT): CHADS2 DS vascular score is 7 currently on Xarelto Patient already on labetalol Assessment & Plan (05/14/2025 12:13 PM EDT): CHADS2 DS vascular score is 7 currently on Xarelto Patient already on labetalol Assessment & Plan (05/13/2025 10:52 AM EDT): CHADS2 DS vascular score is 7 currently on Xarelto Patient already on labetalol Assessment & Plan (05/12/2025 12:34 PM EDT): CHADS2 DS vascular score is 7 currently on Xarelto Patient already on labetalol Assessment & Plan (05/11/2025 5:43 PM EDT): Assessment & Plan (05/11/2025 4:23 PM EDT): CHADS2 DS vascular score is 7 currently on Eliquis Patient on heparin drip and plan to switch on Eliquis after procedure Patient already on labetalol Assessment & Plan (05/10/2025 4:23 AM EDT): CHADS2 DS vascular score is 7 currently on Eliquis Chronic kidney disease stage IIIb avoid nephrotoxic meds hypovolemia nephrology consult Chest pain 05/10/2025 Assessment & Plan (05/11/2025 5:43 PM EDT): Angina pectoris, unstable 05/09/2025 Assessment & Plan (05/11/2025 5:43 PM EDT): COrders from past 72 hours: Case Request Emergency Medical Service Coordinator: Coronary angiography, Right heart cath; Standing Cardiac catheterization; Standing Nonrheumatic aortic valve stenosis 05/09/2025 Abnormal findings on diagnos tic imaging of [...] (06/14/2023 3:05 PM EDT): Recent admit to [facility] for shortness of breath, acute HFpEF with ARTUR. BNP 3311, BUN 26, CR 1.5-1.9, LFT normal, K+ normal. Troponin level negative. CXR showed vascular congestion Pt was admitted and diuresed as inpt. [facility] III Continue GDMT- remains on jardiance and [...] Encounters Date Type Department Care Team Description 05/28/2025 1:00 PM EDT Office Visit [facility] [address] [place] [address] Ruy Amanda CNP S/P TAVR (transcatheter aortic valve replacement) (Primary Dx); Nonrheumatic aortic valve stenosis; LBBB (left bundle branch block); Chronic heart failure with preserved ejection fraction (CMS/HCC); Paroxysmal atrial fibrillation (CMS/HCC); Stage 3b chronic kidney disease (CMS/HCC); Coronary artery disease involving cherokee coronary artery of cherokee heart without angina pectoris; Mixed hyperlipidemia; Benign hypertensive heart disease with heart failure ([facility]/HCC) 05/23/2025 Orders Only [facility] [address] [place] [address] Stephanie Carl MA 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 (Primary Dx); S/P TAVR (transcatheter aortic valve replacement) 05/16/2025 Orders Only [facility] V[facility] [address] [address] Catalina Fisher RN Nonrheumatic aortic valve stenosis (Primary Dx); S/P TAVR (transcatheter aortic valve replacement) 05/15/2025 11:00 AM EDT - 05/15/2025 1:30 PM EDT Surgery [facility] Heart [facility] Vascular Lab [address] [place] [address] Mike Cisneros MD TAVR 05/15/2025 9:19 AM EDT - 05/15/2025 11:59 PM EDT Hospital Encounter [facility] Radiology External Films [address] [place] [address] Discharge Disposition: Home or Self Care () 05/15/2025 9:18 AM EDT Hospital Encounter [facility] Radiology [employer] [address] [place] [address] Discharge Disposition: Home or Self Care () 05/11/2025 11:30 AM EDT - 05/11/2025 1:30 PM EDT Surgery [facility] Vascular Lab [address] [place] [address] Shamar Nolan MD Coronary angiography 05/10/2025 2:37 AM EDT - 05/17/2025 8:26 PM EDT Hospital Encounter [facility] [address] [place] [address] Gabriela Vargas MD Saad, Hani, MD Moukarbel, George, MD Noori, Zaid, MD Aortic stenosis, severe (Primary Dx); Chest pain; Angina pectoris, unstable (CMS/HCC); Acute diastolic congestive heart failure (CMS/HCC); Chest pain due to myocardial ischemia, unspecified ischemic chest pain type; Nonrheumatic aortic valve stenosis; S/P TAVR (transcatheter aortic valve replacement); LBBB (left bundle branch block); Cardiac arrhythmia, unspecified cardiac arrhythmia type; Palpitations; Primary hypertension; Pleural effusion Discharge Disposition: Half-Way Facility (03) 05/10/2025 Travel 05/07/2025 Telephone [place] [address] [place] [address] SiddharthaStephanie rojas MA 05/04/2025 Telephone [facility] [address] [place] [address] Ruthie Linda MD 04/30/2025 3:00 PM EDT Office Visit [facility] [address] [place] [address] Mike Cisneros MD Nonrheumatic aortic valve stenosis (Primary Dx); Chronic diastolic congestive heart failure (CMS/HCC); Shortness of breath; Longstanding persistent atrial fibrillation (CMS/HCC); Pericardial effusion; Pulmonary hypertension (CMS/HCC); Coronary artery disease involving cherokee coronary artery of cherokee heart without angina pectoris; Primary hypertension; Stage 3b chronic kidney disease (CMS/HCC) 04/18/2025 Telephone [facility] [address] [place] [address] Stephanie Carl MA 03/12/2025 9:30 AM EDT Office Visit [facility] [address] [place] [phone] Mike Cisneros MD Longstanding persistent atrial fibrillation (CMS/HCC) (Primary Dx); Nonrheumatic aortic valve stenosis; Pericardial effusion; Pulmonary hypertension (CMS/HCC); Chronic diastolic congestive heart failure (CMS/HCC); Coronary artery disease involving cherokee coronary artery of cherokee heart without angina pectoris; Primary hypertension; Stage 3b chronic kidney disease (CMS/HCC); Weakness of both lower extremities; Shortness of breath; Abnormal findings on diagnostic imaging of heart and coronary circulation 02/28/2025 10:46 AM EDT - 02/28/2025 11:59 PM EDT Hospital Encounter [facility] Vascular Lab [address] [place] [phone] Longstanding persistent atrial fibrillation (CMS/HCC); 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 Discharge Disposition: Home or Self Care () 02/28/2025 Travel from Last 3 Months Immunizations Immunization Administration Dates Next Due Covid ([employer]) Bivalent Osmel ter =>12 YRS 10/21/2022 Influenza, [...] Tobacco: Never Tobacco Cessation:Counseling Given: Not Answered Alcohol Use Standard Drinks/Week Comments Not Currently 0 (1 standard drink = 0.6 oz pur e alcohol) [facility] Utilities Answer Date Recorded In the [...] any time in the past 12 m [facility], were you homeless or living in a [...] Pulse 71 05/28/2025 1:01 PM EDT Temperature 36.7 C (98.1 F) 05/17/2025 7:25 PM EDT Respiratory Rate 18 05/17/2025 7:25 PM EDT Oxygen Saturation 95% 05/28/2025 1:01 PM EDT Inhaled Oxygen Concentration - - Weight 72.9 kg (160 lb 12.8 oz) 05/17/2025 5:26 AM EDT Height 182.9 cm (6') 05/28/2025 1:01 PM EDT Body Mass Index 21.83 05/10/2025 3:00 AM EDT Plan of Treatment Upcoming Encounters Date Type Department Care Team (Late st Contact Info) Description 06/18/2025 11:30 AM EDT Office Visit [facility] [address] [place] [address] Mike Cisneros MD [address] [facility] [place] [phone] 07/11/2025 1:30 PM EDT [facility] [address] [place] [phone] Jeff Hutton MD [address] [place] [address] [id number] Health Maintenance Due Date Last Done Comments Medicare Annual Wellness (AWV) 1940 Diabetes: Retinopathy Screening 1950 COVID-19 Vaccine ( season) 2024 08/16/2023, 10/21/2022, 10/21/2022, Additional history exists Influenza Vaccine (#1) 2025 , 08/20/2023, 08/18/2022, Additional history exists Diabetes: Hemoglobin A1C 08/11/2025 05/11/2025 Depression Screening 01/03/2026 01/03/2025 Fall Risk Screening 05/17/2026 05/17/2025 Adult Tetanus 10/30/2029 10/30/2019 Pneumococcal Vaccine: 50+ Years Completed 08/16/2017, 01/28/2015, 01/28/2015 Zoster Vaccines Completed 04/05/2025, 10/16, 10/30/2019, Additional [...] on patient's age to complete this topic Medical Devices Implanted Type Area Steel Rigger Device Identifier Shelf Expiration Date Model / Serial / Lot Kit,Heart Valve,[id number], 26mm - [id number] - [id number] Implanted:Qty: 1 on 05/15/2025 by Mike Cisneros MD at [facility] Prosthetic Valve N/A: Heart [employer]ES 10/10/2027 [id number] / [id number] / Procedures Procedure Name Priority Date/Time Associated Diagnosis Comments ECG 12 LEAD UNIT PERFORMED Routine 05/28/2025 1:21 PM EDT LBBB (left bundle branch block) POCT GLUCOSE METER UNSOLICITED RESULTS Routine 05/17/2025 4:24 PM EDT POCT GLUCOSE METER UNSOLICITED RESULTS Routine 05/17/2025 11:04 AM EDT MANUAL DIFFERENTIAL Pending Discharge 05/17/2025 8:59 AM EDT COMPREHENSIVE METABOLIC PANEL Pending Discharge 05/17/2025 8:59 AM EDT CBC WITH AUTO DIFFERENTIAL Pending Discharge 05/17/2025 8:59 AM EDT CBC AND DIFFERENTIAL Routine 05/17/2025 8:59 AM EDT LIMITED ECHOCARDIOGRAM (TTE) [...] CLOTTING TIME Routine 05/16/2025 5:08 AM EDT BASIC METABOLIC PANEL Pending Discharge 05/16/2025 3:10 AM EDT CBC Pending Discharge 05/16/2025 3:10 AM EDT POCT [...] APTT Pending Discharge 05/15/2025 3:39 AM EDT BASIC METABOLIC PANEL Pending Discharge 05/15/2025 3:39 AM EDT CBC Pending Discharge 05/15/2025 3:39 AM EDT RED TOP Routine 05/14/2025 10:23 PM EDT EXTRA TUBES Routine 05/14/2025 10:23 PM EDT APTT Pending Discharge 05/14/2025 10:23 PM EDT ECG 12-LEAD Routine 05/14/2025 8:36 PM EDT POCT GLUCOSE METER UNSOLICITED RESULTS Routine 05/14/2025 8:19 PM EDT VASC US CAROTID ARTERY DUPLEX BILATERAL STAT 05/14/2025 5:23 PM EDT POCT GLUCOSE METER UNSOLICITED RESULTS Routine 05/14/2025 4:56 PM EDT PLATELET COUNT STAT 05/14/2025 3:28 PM EDT APTT STAT 05/14/2025 3:28 PM EDT POCT GLUCOSE METER UNSOLICITED RESULTS Routine 05/14/2025 12:13 PM EDT POCT GLUCOSE METER UNSOLICITED RESULTS Routine 05/14/2025 7:05 AM EDT LAVENDER TOP Routine 05/14/2025 3:38 AM EDT EXTRA TUBES Routine 05/14/2025 3:38 AM EDT BASIC METABOLIC PANEL Pending Discharge 05/14/2025 3:38 AM EDT POCT GLUCOSE METER UNSOLICITED RESULTS Routine 05/13/2025 8:55 PM EDT POCT GLUCOSE METER UNSOLICITED RESULTS Routine 05/13/2025 4:44 PM EDT POCT GLUCOSE METER UNSOLICITED RESULTS Routine 05/13/2025 11:37 AM EDT POCT GLUCOSE METER UNSOLICITED RESULTS Routine 05/13/2025 7:04 AM EDT BASIC METABOLIC PANEL Pending Discharge 05/13/2025 3:43 AM EDT CBC Pending Discharge 05/13/2025 3:43 AM EDT POCT GLUCOSE METER UNSOLICITED RESULTS Routine 05/12/2025 8:04 PM EDT POCT GLUCOSE METER UNSOLICITED RESULTS Routine 05/12/2025 4:15 PM EDT POCT GLUCOSE METER UNSOLICITED RESULTS Routine 05/12/2025 11:23 AM EDT ANTI-FACTOR XA Pending Discharge 05/12/2025 9:26 AM EDT POCT GLUCOSE METER UNSOLICITED RESULTS Routine 05/12/2025 7:07 AM EDT LAVENDER TOP Routine 05/12/2025 3:46 AM EDT EXTRA TUBES Routine 05/12/2025 3:46 AM EDT BASIC METABOLIC PANEL Pending Discharge 05/12/2025 3:46 AM EDT ANTI-FACTOR XA Pending Discharge 05/12/2025 3:46 AM EDT POCT [...] AM EDT RIGHT HEART CATH Routine 05/11/2025 11:05 AM EDT Angina pectoris, unstable (CMS/HCC) Acute diastolic congestive heart failure (CMS/HCC) CORONARY ANGIOGRAPHY Routine 05/11/2025 11:05 AM EDT Angina pectoris, unstable (CMS/HCC) Acute diastolic congestive heart failure (CMS/HCC) POCT HBO2% Routine 05/11/2025 10:41 AM EDT ANTI-FACTOR XA STAT 05/11/2025 8:36 AM EDT POCT GLUCOSE METER UNSOLICITED RESULTS Routine 05/11/2025 7:48 AM EDT LIGHT BLUE TOP Routine 05/11/2025 4:28 AM EDT EXTRA TUBES Routine 05/11/2025 4:28 AM EDT HEMOGLOBIN A1C Add-On 05/11/2025 4:27 AM EDT LIPID PANEL Add-On 05/11/2025 4:27 AM EDT BASIC METABOLIC PANEL Routine 05/11/2025 4:27 AM EDT CBC Routine 05/11/2025 4:27 AM EDT ANTI-FACTOR XA Routine 05/11/2025 12:26 AM EDT POCT GLUCOSE METER UNSOLICITED RESULTS Routine 05/10/2025 8:13 PM EDT ANTI-FACTOR XA Routine 05/10/2025 5:34 PM EDT POCT GLUCOSE METER UNSOLICITED RESULTS Routine 05/10/2025 4:23 PM EDT ANTI-FACTOR XA Timed 05/10/2025 2:10 PM EDT POCT GLUCOSE METER UNSOLICITED RESULTS Routine 05/10/2025 11:17 AM EDT PLATELET COUNT STAT 05/10/2025 10:51 AM EDT APTT STAT 05/10/2025 10:51 AM EDT HIGH SENSITIVITY TROPONIN I Timed 05/10/2025 10:51 AM EDT COMPLETE ECHO (TTE) Routine 05/10/2025 9 :49 AM EDT B-TYPE NATRIURETIC PEPTIDE Routine 05/10/2025 8:21 AM EDT HIGH SENSITIVITY TROPONIN I Timed 05/10/2025 8:21 AM EDT POCT GLUCOSE METER UNSOLICITED RESULTS Routine 05/10/2025 7:17 AM EDT CBC WITH AUTO DIFFERENTIAL Routine 05/10/2025 4:54 AM EDT HIGH SENSITIVITY TROPONIN I Timed 05/10/2025 4:54 AM EDT TSH3 REFLEX TO FT4 Routine 05/10/2025 4: 54 AM EDT MAGNESIUM Routine 05/10/2025 4:54 AM EDT COMPREHENSIVE METABOLIC PANEL Routine 05/10/2025 4:54 AM EDT CBC AND DIFFERENTIAL Routine 05/10/2025 4:54 AM EDT TRANSESOPHAGEAL ECHO (MARK) W/ LIMITED DOPPLER AND COLOR FLOW Routine 02/28/2025 12:21 PM EDT Longstanding persistent atrial fibrillation (CMS/HCC) 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 from Last 3 Months Results * ECG 12 lead unit performed (05/28/2025 1:21 PM EDT) us Ruy Amanda CNP ECG ORDERABLES Final Result * (ABNORMAL) POCT glucose meter (05/17/2025 4:24 PM EDT) Only the most recent of31 resultswithin the time period is included. [facility] Glucose POC 331(H) 70 - 105 mg/dL 05/17/2025 4:36 PM EDT [facility] ([facility] Comment:[email or web address] Blood Capillary blood specimen / Unknown 05/17/2025 4:24 PM EDT 05/17/2025 4:36 PM EDT Narrative [facility] ([facility]) - 05/17/2025 4:36 PM EDT Waived Testing in the ED is performed under the ED CLIA certificate #[id number]. us Nikolas Gonzalez MD LAB BLOOD ORDERABLES Final Resul t [facility] ([facility]) [address] [place] [address] * (ABNORMAL) CBC auto differential (05/17/2025 8:59 AM EDT) Only the most recent of2 resultswithin the time period is included. Auto WBC 12.14(H) 4.00 - 10.60 10*3/uL 05/17/2025 9:21 AM EDT [facility] ([facility] RBC 4.06(L) 4.20 - 5.70 10*6/uL 05/17/2025 9:21 AM EDT [facility] ([facility] Hemoglobin 10.4(L) 13.0 - 17.0 g/dL 05/17/2025 9:21 AM EDT [facility] ([facility] Hematocrit 34.2(L) 39.0 - 50.0 % 05/17/2025 9:21 AM EDT [facility] ([facility] MCV 84.2 82.0 - 98.0 fL 05/17/2025 9:21 AM EDT [facility] ([facility] MCH 25.6(L) 27.0 - 33.0 pg 05/17/2025 9:21 AM EDT [facility] ([facility] MCHC 30.4(L) 32.0 - 35.0 g/dL 05/17/2025 9:21 AM EDT [facility] ([facility] RDW 19.8(H) 11.5 - 15.0 % 05/17/2025 9:21 AM EDT [facility] ([facility] Platelets 256 150 - 400 10*3/uL 05/17/2025 9:21 AM EDT [facility] ([facility] nRBC % 0.0 0 % 05/17/2025 9:21 AM EDT [facility] ([facility] Blood Venous blood specimen / Unknown Venipuncture / Unknown 05/17/2025 8:59 AM EDT 05/17/2025 9:12 AM EDT us Nikolas Gonzalez MD LAB BLOOD ORDERABLES Final Resul t [facility] ([facility] [address] [place] [address] * (ABNORMAL) Manual Differential (05/17/2025 8:59 AM EDT) Immature Granulocytes % 0.6 0.0 - 1.0 % 05/17/2025 11:57 AM EDT [facility] ([facility] Neutrophils Absolute 9.2(H) 1.6 - 7.6 10*3/uL 05/17/2025 11:57 AM EDT [facility] ([facility] Lymphocytes Absolute 0.87(L) 1.20 - 4.00 10*3/uL 05/17/2025 11:57 AM EDT [facility] ([facility] Monocytes Absolute 1.92(H) 0.10 - 1.00 10*3/uL 05/17/2025 11:57 AM EDT [facility] ([facility] Eosinophils Absolute 0.05 0.00 - 0.50 10*3/uL 05/17/2025 11:57 AM EDT [facility] ([facility] Basophils Absolute 0.05 0.00 - 0.20 10*3/uL 05/17/2025 11:57 AM EDT [facility] ([facility] Neutrophils % 75.6(H) 40.0 - 72.0 % 05/17/2025 11:57 AM EDT [facility] ([facility] Lymphocytes % 7.2(L) 20.0 - 45.0 % 05/17/2025 11:57 AM EDT [facility] ([facility] Monocytes % 15.8(H) 5.0 - 12.0 % 05/17/2025 11:57 AM EDT [facility] ([facility] Eosinophils % 0.4 0.0 - 6.0 % 05/17/2025 11:57 AM EDT [facility] ([facility] Basophils % 0.4 0.0 - 1.0 % 05/17/2025 11:57 AM EDT [facility] ([facility] Immature Granulocytes Absolute 0.07 0.00 - 0.20 10*3/uL 05/17/2025 11:57 AM EDT [facility] ([facility] Blood Venous blood specimen / Unknown Venipuncture / Unknown 05/17/2025 8:59 AM EDT 05/17/2025 9:12 AM EDT us Nikolas Gonzalez MD LAB BLOOD ORDERABLES Final Resul t [facility] ([facility] [address] [place] [address] * (ABNORMAL) Comprehensive metabolic panel (05/17/2025 8:59 AM EDT) Only the most recent of2 resultswithin the time period is included. Sodium 140 136 - 145 mmol/L 05/17/2025 9:44 AM EDT [facility] ([facility] Potassium 3.9 3.5 - 5.1 mmol/L 05/17/2025 9:44 AM EDT [facility] ([facility] Chloride 104 98 - 107 mmol/L 05/17/2025 9:44 AM EDT [facility] ([facility] CO2 25 21 - 31 mmol/L 05/17/2025 9:44 AM EDT [facility] ([facility] Anion Gap 15 7 - 20 mmol/L 05/17/2025 9:44 AM T [facility] ([facility] BUN 38(H) 7 - 25 mg/dL 05/17/2025 9:44 AM T [facility] ([facility] Creatinine 1.73(H) 0.70 - 1.30 mg/dL 05/17/2025 9:44 AM T [facility] ([facility] BUN/Creatinine Ratio 22.0 01/2025 9:44 AM T [facility] ([facility] Glucose 239(H) 70 - 100 mg/dL 05/17/2025 9:44 AM [facility] ([facility] Calcium 8.6 8.6 - 10.3 mg/dL 05/17/2025 9:44 AM [facility] ([facility] AST 13 13 - 39 U/L 05/17/2025 9:44 AM T [facility] ([facility] ALT (SGPT) <3(L) 7 - 52 U/L 05/17/2025 9:44 AM T [facility] ([facility] Alkaline Phosphatase 68 34 - 104 U/L 05/17/2025 9:44 AM [facility] ([facility] Total Protein 6.3 6.0 - 8.3 g/dL 05/17/2025 9:44 AM T [facility] ([facility] Albumin 3.4(L) 3.5 - 5.7 g/dL 05/17/2025 9:44 AM T [facility] ([facility] Total Bilirubin 0.5 0.3 - 1.0 mg/dL 05/17/2025 9:44 AM EDT [facility] ([facility]) eGFR 38.0(L) >60.0 mL/min/1. 73m*2 05/17/2025 9:44 AM EDT [facility] ([facility]) Comment:[facility] s estimated glomerular filtration rate (eGFR) [...] [facility] [address] [place], [place] [id number] * LIMITED ECHOCARDIOGRAM (TTE) W/ LTD DOPPLER AND COLOR FLOW (05/17/2025 8:23 AM EDT) Anatomical Region Laterality Modality Other 05/17/2025 8:04 AM EDT Narrative 05/17/2025 11:46 AM EDT 1 1 [facility] Heart Station [address] [facility] [place] [address] [phone] (fax) Echocardiogram-[facility] Name: NADIR HEREDIA Study Date: 05/17/2025 08:04 AM B/P: 115 mmHg/40 mmHg HR: Date of : 1940 Location: [facility] Height: 71 in. Age: 85 year(s) Patient [...] unchanged from 05/16/25. Procedure Staff Reading Group: [facility] Insurance Writer: Albert Bee RDCS Ordering Physician: NICOLE REYNOLDS Procedure Note Geri Delarosa MD - 05/17/2025 1 1 [facility] Heart Station [address] [place] [address] [phone] (fax) Echocardiogram-[facility] Name: NADIR HEREDIA Study Date: 05/17/2025 08:04 AM B/P: 115 mmHg/40 mmHg HR: Date of : 1940 Location: [facility] Height: 71 in. Age: 85 year(s) Patient [...] unchanged from 05/16/25. Procedure Staff Reading Group: [facility] Insurance Writer: Albert Bee RDCS Ordering Physician: NICOLE REYNOLDS Nicole Reynolds MD CV ECHO PROCEDURES Final Result * (ABNORMAL) APTT (05/16/2025 3:04 PM EDT) Only the most recent of7 resultswithin the time period is included. Pathologist [facility] aPTT 77.8(H) 25.0 - 35.0 Seconds 05/16/2025 3:56 PM EDT [facility] ([facility]) Comment:Clinical significanc e of the APTT is questionable in the presence of heparin. Blood Venous blood specimen / Unknown Venipuncture / Unknown 05/16/2025 3:04 PM EDT 05/16/2025 3:17 PM EDT us Mike Cisneros MD LAB BLOOD ORDERABLES Final R esult [facility] ([facility]) [address] [place] [address] * ECG 12 lead (05/16/2025 11:31 AM EDT) Only the most recent of4 resultswithin the time period is included. Ventricular Rate 85 BPM GE MUSE QRS DURATION 146 ms GE MUSE QT Interval 424 ms GE MUSE QTC CALCULATION(BAZE TT) 504 ms GE MUSE R-[place] -56 degrees GE MUSE T [place] 106 degrees GE MUSE 05/16/2025 11:2 6 AM EDT 05/16/2025 4:16 PM EDT Impressions GE MUSE - 05/16/2025 4:16 PM EDT Atrial fibrillation Left axis deviation Left bundle branch block Abnormal ECG When compared with ECG of 16-MAY-2025 10:06, (unconfirmed) No significant change was found Confirmed by Kasandra DELAROSA SAMER J. ([id number]) on 05/16/2025 4:16:44 PM Narrative Procedure [...] culture, peripheral #2 (05/16/2025 11:08 AM EDT) Only the most recent of2 resultswithin the time period is included. Blood Culture No growth at 5 days DAVE 05/21/2025 12:01 PM EDT [facility] ([facility]) Blood Venous blood specimen / Unknown Venipuncture / Unknown 05/16/2025 11:08 AM EDT 05/16/2025 11:13 AM EDT us García Tse MD LAB MICROBIOLOGY - GENERAL ORDKee CURRIE Final Result [facility] ([facility]) [address] [place] [address] * XR chest 1 view (05/16/2025 10:37 [...] Narrative 05/16/2025 3:18 PM EDT 1 1 [facility] Heart Station [address] [facility] [place] [address] [phone] (fax) Echocardiogram-[facility] Name: NADIR HEREDIA Study Date: 05/16/2025 10:05 AM B/P: 125 mmHg/44 mmHg HR: Date of : 1940 Location: [facility] Height: 71 in. Age: 85 year(s) Patient [...] with tamponade physiology. Procedure Staff Reading Group: [facility] Insurance Writer: Katelyn Martinez RDCS Ordering Physician: Shamar Nolan MD Procedure Note Geri Delarosa MD - 05/16/2025 1 1 [facility] Heart Station [address] [place] [address] [phone] (fax) Echocardiogram-[facility] Name: NADIR HEREDIA Study Date: 05/16/2025 10:05 AM B/P: 125 mmHg/44 mmHg HR: Date of : 1940 Location: [facility] Height: 71 in. Age: 85 year(s) Patient [...] with tamponade physiology. Procedure Staff Reading Group: [facility] Insurance Writer: Katelyn Martinez RDCS Ordering Physician: Shamar Nolan MD us Shamar Nolan MD CV ECHO PROCEDURES Final Result * (ABNORMAL) Activated clotting time (05/16/2025 5:08 AM EDT) Only the most recent of4 resultswithin the time period is included. Activated Clotting Time 284(H) 82 - 152 s 05/16/2025 5:08 AM EDT [facility] ([facility]) Blood Venous blood specimen / Unknown 05/16/2025 5:08 AM EDT 05/16/2025 5:08 AM EDT Mike Cisneros MD LAB POINT OF CARE TE ST DOCKED DEVICE UNSOLICITED RESULTS Final Result [facility] ([facility] [address] [place] [address] * (ABNORMAL) CBC (05/16/2025 3:10 AM EDT) Only the most recent of4 resultswithin the time period is included. Auto WBC 14.93(H) 4.00 - 10.60 10*3/uL 05/16/2025 3:38 AM EDT [facility] ([facility] RBC 3.94(L) 4.20 - 5.70 10*6/uL 05/16/2025 3:38 AM EDT [facility] ([facility] Hemoglobin 10.0(L) 13.0 - 17.0 g/dL 05/16/2025 3:38 AM EDT [facility] ([facility] Hematocrit 33.1(L) 39.0 - 50.0 % 05/16/2025 3:38 AM EDT [facility] ([facility] MCV 84.0 82.0 - 98.0 fL 05/16/2025 3:38 AM EDT [facility] ([facility] MCH 25.4(L) 27.0 - 33.0 pg 05/16/2025 3:38 AM EDT [facility] ([facility] MCHC 30.2(L) 32.0 - 35.0 g/dL 05/16/2025 3:38 AM EDT [facility] ([facility] RDW 19.5(H) 11.5 - 15.0 % 05/16/2025 3:38 AM EDT [facility] ([facility] Platelets 306 150 - 400 10*3/uL 05/16/2025 3:38 AM EDT [facility] ([facility] Blood Venous blood specimen / Unknown Existing Catheter / Unknown 05/16/2025 3:10 AM EDT 05/16/2025 3:27 AM EDT us Julio Cesar Medina MD LAB BLOOD ORDERABLES Final Resul t [facility] ([facility] [address] [place] [address] * (ABNORMAL) Basic metabolic panel (05/16/2025 3:10 AM EDT) Only the most recent of6 resultswithin the time period is included. Sodium 140 136 - 145 mmol/L 05/16/2025 3:52 AM EDT [facility] ([facility] Potassium 4.2 3.5 - 5.1 mmol/L 05/16/2025 3:52 AM EDT [facility] ([facility] Chloride 103 98 - 107 mmol/L 05/16/2025 3:52 AM EDT [facility] ([facility] CO2 22 21 - 31 mmol/L 05/16/2025 3:52 AM EDT [facility] ([facility] BUN 41(H) 7 - 25 mg/dL 05/16/2025 3:52 AM EDT [facility] ([facility] Creatinine 1.71(H) 0.70 - 1.30 mg/dL 05/16/2025 3:52 AM EDT [facility] ([facility] Glucose 222(H) 70 - 100 mg/dL 05/16/2025 3:52 AM EDT [facility] ([facility] Calcium 8.6 8.6 - 10.3 mg/dL 05/16/2025 3:52 AM EDT [facility] ([facility] Anion Gap 19 7 - 20 mmol/L 05/16/2025 3:52 AM EDT [facility] ([facility] eGFR 38.5(L) >60.0 mL/min/1. 73m*2 05/16/2025 3:52 AM EDT [facility] ([facility] Comment:[facility] s estimated glomerular filtration rate (eGFR) [...] ([facility]) Blood Venous blood specimen / Unknown Existing Catheter / Unknown 05/16/2025 3:10 AM EDT 05/16/2025 3:27 AM EDT us Julio Cesar Medina MD LAB BLOOD ORDERABLES Final Resul t [facility] ([facility]) [address] [place] [address] * LIMITED ECHOCARDIOGRAM (TTE) W/ LTD DOPPLER AND COLOR FLOW (05/15/2025 2:34 PM EDT) Anatomical Region Laterality Modality Other 05/15/2025 12:4 6 PM EDT Narrative 05/15/2025 3:05 PM EDT 1 1 [facility] Heart Station [address] [place] [address] [phone] (fax) Echocardiogram-[facility] Name: NADIR HEREDIA Study Date: 05/15/2025 12:46 PM B/P: 171 mmHg/100 mmHg HR: 87 bpm Date of : 1940 Location: [facility] Height: 72 in. Age: 85 year(s) Patient [...] effusion is seen. Procedure Staff Reading Group: [facility] Insurance Writer: SEAN Bailey, RDCS Ordering Physician: PROMISE DE SOUZA Procedure Note Kyleigh Faulkner MD - 05/15/2025 1 1 [facility] Heart Station [address] [place] [address] [phone] (fax) Echocardiogram-[facility] Name: NADIR HEREDIA Study Date: 05/15/2025 12:46 PM B/P: 171 mmHg/100 mmHg HR: 87 bpm Date of : 1940 Location: [facility] Height: 72 in. Age: 85 year(s) Patient [...] effusion is seen. Procedure Staff Reading Group: [facility] Insurance Writer: Bianca Armendariz BS, RDCS Ordering Physician: PROMISE DE SOUZA Promise De Souza WIRED SWEATBAND CUTTER CV ECHO PROCEDURES Final Resu lt * TAVR (05/15/2025 2:29 PM EDT) Anatomical Region Laterality Modality Other Narrative 05/15/2025 2:54 PM EDT INDICATION: Nadir Heredia is a 85 y.o. male with severe [...] the right common femoral artery using two 6-Kittitian ProGlide devices. Angio-Seal vascular closure in the left common femoral artery. Placement of SENTINEL cerebral embolic protection device. OPERATORS: Interventional Cardiology Seating Captain: Mike Cisneros MD Cardiac Surgery Seating Captain: Negro Abdullahi MD Curriculum And Instruction Director Interventional Cardiology Seating Captain: Shamar Nolan METHODS: Procedure was explained to the patient with risks and benefits. he signed informed consent. he was brought to airport maintenance laborer in a fasting state. The procedure was performed in the cardiac airport maintenance laborer under conscious sedation. The right wrist area was prepped and draped in usual fashion. Access was obtained using ultrasound guidance and micropuncture technique in the right radial artery and a 6-Kittitian x 11 cm Hydrophilic sheath was placed. Verapamil was given through the sheath. Both groin areas, and the right neck area were prepped and draped in usual fashion. Ultrasound guidance was used for micropuncture access in the right internal jugular vein and a 6-Kittitian x 11 cm introducer sheath was secured in place. Micropuncture technique and ultrasound guidance were used for access in the right common femoral artery and inner cannula angiography was performed followed by upsizing to a 6-Kittitian x 11 cm sheath. The same was done for the access in the left common femoral artery. At this time, we proceeded with the preclosure in the right common femoral artery using 2 crossing Perclose devices and the access was then upsized over a wire to a 10-Kittitian sheath. A 5-Kittitian balloon-tipped pacemaker wire was advanced through the internal jugular vein sheath to the right ventricular apex and adequate capture was confirmed. Heparin was given intravenously and therapeutic ACT confirmed during the rest of the procedure and additional heparin given as needed. Through the left common femoral sheath, an angled 6-Kittitian pigtail catheter was then advanced to the ascending aorta and placed in the noncoronary cusp. Aortic root angiography was performed in the coplanar view as determined by prior CT scan measurements. A 6-Kittitian IM diagnostic catheter was then advanced through the right radial sheath and then navigated using an 0.035 inch wire to the ascending aorta and this was used to place an exchange length Grandslam 0.014 inch wire. The wire was advanced to the left carotid artery. A Mcdade device was then prepped using standard techniques and then advanced. The proximal filter was deployed in the innominate artery followed by deployment of the distal filter. The Mcdade device was then secured in place. The right common femoral access was then upsized using an exchange length Lunderquist wire [which was placed through a multipurpose catheter] to the 14-Kittitian Le E-sheath. The sheath was secured in place. A 6-Kittitian AL1 diagnostic catheter was advanced via the E-sheath, and using a straight stiff Glidewire, the aortic valve was crossed and the catheter was advanced in the left ventricular cavity, and using an exchange length J-wire, a 6-Kittitian angled pigtail catheter was advanced to make [...] was exchanged over the wire to a 6-Kittitian angled pigtail catheter which was advanced across [...] aortic/ventricular. The pigtail catheters were retracted. The Mcdade device was recaptured. At this stage, the procedure was concluded. An electrocardiogram was performed showing atrial fibrillation and new LBBB. Therefore, the temporary pacemaker wire was secured in place. The previously placed Perclose sutures were tightened in the right common femoral artery achieving good hemostasis. A 6-Kittitian Angioseal device was used for hemostasis in [...] Details Nonrheumatic aortic valve stenosis [I35.0] Promise De Souza CNP CV CARDIAC CATH PROCEDURES Fi nal Result * XR transfer of outside films (05/15/2025 9:19 AM EDT) Narrative IMAGING - 05/15/2025 9:19 AM EDT This order has been auto-finalized and does not contain a result. Kodak Perez MD IMG XR PROCEDURES Final Result IMAGING * CT transfer of outside films (05/15/2025 9:18 AM EDT) Narrative IMAGING - 05/15/2025 9:18 AM EDT This order has been auto-finalized and does not contain a result. us Kodak Perez MD IMG CT PROCEDURES Final Result IMAGING * Red Top (05/14/2025 10:23 PM EDT) Extra Tube Hold for add-ons. 05/15/2025 12:01 AM EDT [facility] Comment:Auto resulted. Blood Venous blood specimen / Unknown 05/14/2025 10:23 PM EDT 05/14/2025 10:56 PM EDT us Julio Cesar Medina MD LAB BLOOD ORDERABLES Final Resul t [facility] ([facility]) [address] [place] [address] * Vascular US carotid artery duplex bilateral [...] stenosis in left internal carotid artery. Promise De Souza CNP [facility] CV VASCULAR PROCEDURES Fi nal Result * Platelet count (05/14/2025 3:28 PM EDT) Only the most recent of2 resultswithin the time period is included. Platelets 297 150 - 400 10*3/uL 05/14/2025 3:45 PM EDT [facility] ([facility] Blood Venous blood specimen / Unknown Venipuncture / Unknown 05/14/2025 3:28 PM EDT 05/14/2025 3:37 PM EDT us Ruy Amanda CNP LAB BLOOD ORDERABLES Final Resul t Performing Organization Address City/[facility]/ZIP Co de Phone Number [facility]) [address] [place] [id number] * Lavender Top (05/14/2025 3:38 AM EDT) Only the most recent of2 resultswithin the time period is included. Extra Tube Hold for add-ons. 05/14/2025 6:01 AM EDT [facility] ([facility] Comment:Auto resulted. Blood Venous blood specimen / Unknown Venipuncture / Unknown 05/14/2025 3:38 AM EDT 05/14/2025 4:06 AM EDT us Julio Cesar Medina MD LAB BLOOD ORDERABLES Final Resul t Performing Organization Address [facility] de Phone Number [facility]) [address] [place] [phone] * Anti-Xa (Heparin Level) (05/12/2025 9:26 AM EDT) Only the most recent of7 resultswithin the time period is included. Anti-Xa (Heparin) 0.32 0.3 - 0.7 IU/mL 05/12/2025 10:52 AM EDT [facility] ([facility] ([place] Comment:Rivaroxaban and Apix aban will interfere with the anti Xa assay used to monitor UFH and LMWH. Blood Venous blood specimen / Unknown Venipuncture / Unknown 05/12/2025 9:26 AM EDT 05/12/2025 10:21 AM EDT us Julio Cesar Medina MD LAB BLOOD ORDERABLES Final Resul t [facility] [place]) [address] [place] [address] * CTA Abdomen Pelvis W IV Contrast [...] and occluded vessel seen. Electronically signed: Yenni Satfford MD. Promise Latanya WIRED SWEATBAND CUTTER IM CT PROCEDURES Final Resul t * [...] 3 cusped view, anterior view, and no NEUROCRITICAL CARE PHYSICIAN-CAU view are saved in 3-D volume rendered [...] 3 cusped view, anterior view, and no NEUROCRITICAL CARE PHYSICIAN-CAU view are saved in 3-Dvolume rendered images. [...] mm Electronically signed: Yenni Stafford MD. Promise De Souza CNP IM CT PROCEDURES Final Resul t * CORONARY ANGIOGRAPHY, RIGHT HEART CATH (05/11/2025 11:05 AM EDT) Anatomical Region Laterality Modality Other Narrative 05/11/2025 4:28 PM EDT PROCEDURE PHYSICIAN: Shamar Nolan MD Clinical Presentation: 85 y.o. Male with history of A-fib on Xarelto, hypertension, HFpEF, CKD, recent history of CVA 4 months ago, renal artery stenosis transferred from [facility] for acute on chronic HFpEF and [...] and a micropuncture access technique a 6 Kittitian sheath was placed in the right internal jugular vein. The Garza catheter was advanced under fluoroscopic and hemodynamic monitoring to the right atrium. Pressure obtained of the right atrium, right ventricle, pulmonary artery, pulmonary capillary position. Oxygen saturation drawn for the pulmonary artery and Mary cardiac with a cardiac index were calculated. 1% lidocaine was infiltrated over the left radial artery. A 6-Kittitian Terumo Glidesheath slender was placed in left [...] (ABNORMAL) POC Hb02% (05/11/2025 10:41 AM EDT) Pathologist [facility] VSLIQF43% 64.1(A) 90 - 95 % QC Pass/Fail Passed QC LOT # [id number] QC Expiration Date 73,126 SAMPLESITE nl Blood Venous blood specimen / Unknown 05/11/2025 10:41 AM EDT Narrative Ventura Schultz MT - 05/14/2025 8:56 AM EDT Oper [id number] us Julio Cesar Medina MD POINT OF CARE TEST ENTER/EDIT OR DERABLES Final Result * Light Blue Top (05/11/2025 4:28 AM EDT) [facility] Extra Tube Hold for add-ons. 05/11/2025 6:01 AM EDT [facility] ([facility] ([place] Comment:Auto resulted. Blood Venous blood specimen / Unknown 05/11/2025 4:28 AM EDT 05/11/2025 4:32 AM EDT us Julio Cesar Medina MD LAB BLOOD ORDERABLES Final Resul t [facility] ([facility] [address] [place] [address] * (ABNORMAL) Hemoglobin A1c (05/11/2025 4:27 AM EDT) [facility] Hemoglobin A1C 9.3(H) 4.0 - 6.0 % 05/11/2025 1:51 PM EDT [facility] ([facility] Estimated Average Glucose 220 mg/dL 05/11/2025 1:51 PM EDT [facility] ([facility] Blood Venous blood specimen / Unknown Venipuncture / Unknown 05/11/2025 4:27 AM EDT 05/11/2025 4:37 AM EDT Julio Cesar Medina MD LAB BLOOD ORDERABLES Final Resul t [facility] ([facility] [address] [place] [address] * Lipid panel (05/11/2025 4:27 AM EDT) Triglycerides 93 <150 mg/dL 05/11/2025 11:01 AM EDT [facility] ([facility] Comment: TRIGLYCERIDE REFERENCE RANGE: 20 YEARS AND OLDER CARDIOVASCULAR RISK LESS THAN 150 mg/dL LOW RISK 150 TO 199 mg/dL BORDERLINE RISK 200 mg/dL AND GREATER HIGH RISK Cholesterol 187 120 - 200 mg/dL 05/11/2025 11:01 AM EDT [facility] ([facility] LDL Calculated 99 0 - 160 mg/dL 05/11/2025 11:01 AM EDT [facility]) HDL 69 23 - 92 mg/dL 05/11/2025 11:01 AM EDT [facility] ([facility] Non HDL Cholesterol 118 05/11/2025 11:01 AM EDT [facility]) Total VLDL-C 19 0 - 40 mg/dL 05/11/2025 11:01 AM EDT [facility] ([facility] Cholesterol/HDL Ratio 2.7 mg/dL 05/11/2025 11:01 AM EDT [facility] ([facility] Blood Venous blood specimen / Unknown Venipuncture / Unknown 05/11/2025 4:27 AM EDT 05/11/2025 4:37 AM EDT Julio Cesar Medina MD LAB BLOOD ORDERABLES Final Resul t [facility]) [place] [address] * (ABNORMAL) High Sensitivity Troponin I (05/10/2025 10:51 AM EDT) Only the most recent of3 resultswithin the time period is included. High Sensitivity Troponin I 26(H) <20 ng/L 05/10/2025 11:46 AM EDT [facility] ([place]) Blood Venous blood specimen / Unknown Venipuncture / Unknown 05/10/2025 10:51 AM EDT 05/10/2025 11:18 AM EDT us Estuardo Reed MD LAB BLOOD ORDERABLES Final Re sult [facility] ([place]) [address] [place] [address] * COMPLETE ECHO (TTE) (05/10/2025 9:49 AM EDT) Anatomical Region Laterality Modality Other 05/10/2025 9:19 AM EDT Narrative 05/10/2025 10:24 AM EDT 1 [facility] [address] [place] [address] [phone] (fax) Echocardiogram-[facility] Name: NADIR HEREDIA Study Date: 05/10/2025 09:19 AM B/P: 178 mmHg/92 mmHg HR: 104 bpm Date of : 1940 Location: [facility] Height: 72 in. Age: 85 year(s) Patient [...] effusion is seen. Procedure Staff Reading Group: [facility] Insurance Writer: SEAN Bailey, RDCS Ordering Physician: ESTUARDO REED Procedure Note Geri Delarosa MD - 05/10/2025 1 1 [facility] [address] [place] [address] [phone] (fax) Echocardiogram-[facility] Name: NADIR HEREDIA Study Date: 05/10/2025 09:19 AM B/P: 178 mmHg/92 mmHg HR: 104 bpm Date of : 1940 Location: [facility] Height: 72 in. Age: 85 year(s) Patient [...] effusion is seen. Procedure Staff Reading Group: [facility] Insurance Writer: SEAN Bailey, RDCS Ordering Physician: ESTUARDO REED us Estuardo Reed MD CV ECHO PROCEDURES Final Resu lt * (ABNORMAL) B-type natriuretic peptide (05/10/2025 8:21 AM EDT) BNP 736(H) 0 - 100 pg/mL 05/10/2025 9:09 AM EDT [facility] ([place]) Blood Venous blood specimen / Unknown Venipuncture / Unknown 05/10/2025 8:21 AM EDT 05/10/2025 8:40 AM EDT us Azeem Green MD LAB BLOOD ORDERABLES Final Resul t [facility]) [address] [place] [address] * TSH3 Reflex to FT4 (05/10/2025 4:54 AM EDT) TSH 1.34 0.34 - 5.60 mIU/L 05/10/2025 5:49 AM EDT [facility] ([facility] Blood Venous blood specimen / Unknown Venipuncture / Unknown 05/10/2025 4:54 AM EDT 05/10/2025 5:08 AM EDT us Estuardo Reed MD LAB BLOOD ORDERABLES Final Re sult Performing Organization Address [facility]/ZIP Co de Phone Number [facility]) [address] [place] [address] * Magnesium (05/10/2025 4:54 AM EDT) Magnesium 2.0 1.9 - 2.7 mg/dL 05/10/2025 5:49 AM EDT [facility] ([facility] Blood Venous blood specimen / Unknown Venipuncture / Unknown 05/10/2025 4:54 AM EDT 05/10/2025 5:08 AM EDT us Estuardo Reed MD LAB BLOOD ORDERABLES Final Re sult Performing Organization Address City/[facility]/ZIP Co de Phone Number [facility]) [address] [place] [address] * TRANSESOPHAGEAL ECHO (MARK) W/ LIMITED DOPPLER AND COLOR FLOW (02/28/2025 12:21 PM EDT) Anatomical Region Laterality Modality Other 02/28/2025 11:3 8 AM EDT Narrative 02/28/2025 6:13 PM EDT 1 [facility] [address] [place] [address] [phone] (fax) Transesophageal Echocardiogram-[facility] Name: NADIR HEREDIA Study Date: 02/28/2025 11:38 AM B/P: 152 mmHg/76 mmHg HR: Date of : 1940 Location: [facility] Height: 73 in. Age: 85 year(s) Patient Room: Weight: 188 lb. Gender: Male Patient Status: OutPt BSA: 2.1 m2 Indication: Atrial Fibrillation Examination: MARK/Limited Doppler/CFI, Agitated Saline Image Quality: Good Patient Consent: Informed, written consent was obtained for the procedure Exam Location: A MARK was performed in the Emergency Medical Service Coordinator without complications Anesthesia Pharyngeal anesthesia with viscous [...] small pericardial effusion. Procedure Staff Reading Group: [facility] Insurance Writer: Katelyn Martinez RDCS Ordering Physician: Mike Cisneros MD Procedure Note Kyleigh Faulkner MD - 02/28/2025 1 [facility] Station [address] [place] [address] [phone] (fax) Transesophageal Echocardiogram-[facility] Name: NADIR HEREDIA Study Date: 02/28/2025 11:38 AM B/P: 152 mmHg/76 mmHg HR: Date of : 1940 Location: [facility] Height: 73 in. Age: 85 year(s) Patient Room: Weight: 188 lb. Gender: Male Patient Status: OutPt BSA: 2.1 m2 Indication: Atrial Fibrillation Examination: MARK/Limited Doppler/CFI, Agitated Saline Image Quality: Good Patient Consent: Informed, written consent was obtained for the procedure Exam Location: A MARK was performed in the Emergency Medical Service Coordinator without complications Anesthesia Pharyngeal anesthesia with viscous [...] small pericardial effusion. Procedure Staff Reading Group: [facility] Insurance Writer: Katelyn Martinez RDCS Ordering Physician: Mike Cisneros MD Mike Cisneros MD CV ECHO PROCEDURES Final Res ult from Last 3 Months Insurance MEDICARE [facility] Advance Directives * Full Code (Latest Code Status on File) Date Activated Date Inactivated Comments 05/10/2025 9:05 AM 05/17/2025 10:26 PM * DNR CC-A Date Activated Date Inactivated Comments 05/10/2025 4:16 AM 05/10/2025 9:05 AM Question Answer Comments Select If Any Apply: No Intubation Care Teams Bed Placement Coordinator Relationship Specialty Start Date End Date Pj Sung MD [address] [place] [address] PCP - General Family Medicine 05/10/25 Pj Sung MD [address] [place] [address] 05/10/25
--- OUTSIDE RECORDS SUMMARY | 2025-05-28 13:52 | XMS_ITS | Encounter Summary ---
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) Procedures Transthoracic Echo (TTE) Complete Promise Pelaez CNP [address] [place] [address] Phone: tel: fax: [facility] [address] [place] [address] Phone: tel: fax: Referral ID Status Reason Start Date Expiration Date Visits Requested Visits Authorized [id number] Pending Review Perform Procedure 05/16/2025 05/16/2026 3 3 Encounter Details Date Type Department Care Team (Late st Contact Info) Description 05/16/2025 Orders Only [facility] [address] [facility] [place] [phone] Catalina Fisher RN Nonrheumatic aortic valve stenosis (Primary Dx); S/P TAVR (transcatheter aortic valve replacement) Social History Tobacco Use Types Packs/Day Years Used Date Smoking Tobacco: Former Cigarettes Smokeless Tobacco: Never [facility] Utilities Answer Date Recorded In the past [...] any time in the past 12 m [facility], were you homeless or living in a jail (including now)? No 05/10/2025 Hunger Vital Sign [...] Description 06/18/2025 11:30 AM EDT Office Visit [facility] [address] [place] [address] Mike Cisneros MD [address] [facility] [place] [address] 07/11/2025 1:30 PM EDT Follow-Up [facility] [address] [place] [phone] Jeff Hutton MD [address] [place] [phone] Scheduled Orders Name Type Priority Associated Diagnoses Order Schedule Transthoracic Echo (TTE) Complete Echocardiography Routine 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
--- OUTSIDE RECORDS SUMMARY | 2025-05-28 13:53 | XMS_ITS | Clinical Summary ---
Author Organization [facility] Address [address] [place] [address] Phone Care Team Providers Care Technology Development Intern Name Role Phone Unavailable Primary Care Provider [...]
--- OUTSIDE RECORDS SUMMARY | 2025-05-28 13:53 | XMS_ITS | Clinical Summary ---
Author Organization [facility] Address [address] [place] [address] Care Team Providers Care Core Assembly Supervisor Name Role Phone Pj Sung MD Primary Care Provider [phone] Allergies Active Allergy Reactions Criticality Noted Date [...] 2024 Advance Directive Discussion 11/15/2024 Influenza Vaccine (#1) 2025 Insurance [facility] MEDICARE Care Teams Core Assembly Supervisor Relationship Specialty Start Date End Date Pj Sung MD PCP - General Family Medicine 08/24/12
[2025-05-28 14:19] LABS: Hematocrit 30.8 % (42.0-54.0); Hemoglobin 9.4 g/dL (14.0-18.0); Immature Granulocytes Abs Auto 0.03 10^3/uL (0.00-0.03); Immature Granulocytes Pct Auto 0.3 % (0.0-0.5); Lymphocytes Absolute Auto 0.7 10^3/uL (1.2-3.8); Mean Corpuscular HGB Conc 30.5 g/dL (29.9-35.2); Mean Corpuscular Hemoglobin 25.5 pg (25.9-34.0); Mean Corpuscular Volume 83.5 fL (80.0-94.0); Platelet Count 372 10^3/uL (150-450); Red Blood Count 3.69 10^6/uL (4.70-6.10); White Blood Count 8.9 10^3/uL (4.0-11.0)
[2025-05-28 15:38] LABS: Anion Gap 18.9; Blood Urea Nitrogen 32.0 mg/dL (7.0-18.0); Calcium 9.1 mg/dL (8.5-10.1); Carbon Dioxide 23.9 mmol/L (21.0-32.0); Chloride 103 mmol/L (98-107); Estimated GFR (African America 43 (>=60 mL/min/1.73m^2); Estimated GFR (Non-African Ame 35 (>=60 mL/min/1.73m^2); Glucose 156 mg/dL (74-106); Potassium 4.8 mmol/L (3.5-5.1); Sodium 141 mmol/L (136-145)
== END 2025-05-28 13:46 | disposition home or self-care (01) ==
LOC: LAB 13:47
PROVIDERS: PCP Family Medicine
DX: Z95.2 Presence of prosthetic heart valve (principal)
CPT/HCPCS: 36415; 80048; 85025

== ENCOUNTER 2025-06-14 09:00 | Outpatient (OUT) | payer MEDICARE, SELFPAY ==
--- OUTSIDE RECORDS SUMMARY | 2025-05-21 08:57 | XMS_ITS ---
Author Organization [facility] [place] Address [address] [place] [address] Care Team Providers Care Confidential Investigator Name Role Phone Erik Sung Primary Care Provider REASON FOR VISIT Nystatin order Encounters Encounter Location Date Provider Diagnosis [facility] [address] [place] [address] 05/21/2025 Erik Sung Plan Of Treatment No Information Progress Notes * Anson HEREDIA LDOB:[birth year] (85 yo M)Acc No.[id number]:05/21/2025 Patient: Anson SANTILLAN :1940 A ge:85 Y S ex:Male Address:[address] [place] [address], [phone] * true * Date: Generated for Gunnari janneth/Falandong/eTransmitting on: 0 06/14/2025 07:30 AM EDT
--- OUTSIDE RECORDS SUMMARY | 2025-05-21 12:01 | XMS_ITS ---
Author Organization [facility] [place] Address [address] [place] [address] Care Team Providers Care Histology Assistant Name Role Phone Erik Sung Primary Care Provider REASON FOR VISIT CT scan Encounters Encounter Location Date Provider Diagnosis [facility] [address] [place] [address] 05/21/2025 Erik Snug Pleural effusion J90 Assessments Encounter Date Diagnosis (ICD Code) Assessment Notes Treatment Notes Treatment Clinical Notes Section Notes 05/21/2025 Pleural effusion (ICD-10 - J90) Plan Of Treatment Pending Test Test Name Order Date CT CHEST WO CON 05/21/2025 Progress Notes * Anson HEREDIA LDOB:[birth year] (85 yo M)Acc No.[id number]:05/21/2025 Patient: Anson SANTILLAN :1940 A ge:85 Y S ex:Male Address:[address] [place] [address], [phone] Subjective: * Chief Complaints: * C T scan * Medical History: * Surgical History: * Hospitalization/Major Diagno stic Procedure: * Medications: Objective: * Vitals: * Physical Examination: Assessment: * Assessment: 1. P leural effusion - J90 (Primary) Plan: * Treatment: * Procedure Codes: * true * Date: Generated for Printi ng/Faxing/eTransmitting on: 06/14/2025 07:30 AM EDT
--- OUTSIDE RECORDS SUMMARY | 2025-05-30 05:12 | XMS_ITS ---
Author Organization [facility] Address [address] [place] [address] Care Team Providers Care Arc Trimmer Name Role Phone Erik Sung Primary Care Provider [phone] results- Encounters Encounter Location Date Provider Diagnosis [facility] [address] [place] [address] 05/30/2025 Erik Sung Plan Of Treatment No Information Progress Notes * Anson HEREDIA LDOB:[birth year] (85 yo M)Acc No.[id number]:05/30/2025 Patient: Anson SANTILLAN :1940 A ge:85 Y S ex:Male Address:[address] [place] [address], [phone] * true * Date: Generated for Gunnari janneth/Falandong/eTransmitting on: 0 06/14/2025 07:31 AM EDT
--- OUTSIDE RECORDS SUMMARY | 2025-06-02 16:04 | XMS_ITS | Encounter Summary ---
Author Name [facility] [place] Organization [facility] [place] Address [address] [place] [address] Care Team Providers Care Casket Assembler Metal Name Role Phone IRIS ROBLERO Primary Care [...] PLAN C Nov 15, 2016 PLAN C [id number] [phone] NADIR ALVARADO PATIENT MEDICARE (WNR) MEDICARE (M) PART A Jan 14, 2004 PART A [id number] NADIR ALVARADO PATIENT MEDICARE (WNR) MEDICARE (M) PART B Jan 14, 2004 PART B [id number] NADIR ALVARADO PATIENT Selected Encounter This section includes the information on record at [place] for the Encounter. Date/Time Encounter Type Encounter Description Reason Pro vider Source Jun 02, 2025 08:04 PM Outpatient Encounter ADMIN PAT ACTIVTIES (FRANCESNONCT) IHE Encounter Template Text not used by [place] Plan of Treatment: Future Appointments (+ 6 months) and Future Tests (+/- 45 days) The Plan of Treatment section includes future care activities for the [facility] [place] [facility] This section includes future appointments and future orders which are active, pending or scheduled. Future Appointments This section includes appointments that were scheduled to occur 6 months from the date of the Encounter, up to a maximum of 20 appointments. The data comes from all [place] treatment [facility]. Appointment Date/Time Appointment Type Appointme nt Facility Name Jun 08, 2025 11:00 AM AMBULATORY - NONE [facility] Jul 02, 2025 08:30 AM [facility] Active, Pending, and Scheduled Orders This section includes a listing of several types of active, pending, and scheduled orders, including clinic medications orders, diagnostic test orders, procedure orders and consult orders; where the start date of the order is 45 days before the date of the Encounter or 45 days after the date of theEncounter. The data comes from all [facility]. Test Date/Time Test Type Test Details Facility Name Jun 08, 2025 12:00 AM Laboratory - Chemi stry Order FERRITIN LT GREEN PLASMA SP ONCE [facility] Jun 08, 2025 12:00 AM Laboratory - Chemi stry Order IRON GROUP GOLD TOP SERUM SP ONCE [facility] Jun 08, 2025 12:00 AM Laboratory - Chemi stry Order FOLATE GOLD TOP SERUM SP ONCE [facility] Jun 08, 2025 12:00 AM Laboratory - Chemi stry Order VITAMIN B12 LT GREEN PLASMA SP ONCE [facility] Jun 08, 2025 12:00 AM Laboratory - Chemi stry Order BASIC METABOLIC PANEL LT GREEN PLASMA SP ONCE [facility] Jun 10, 2025 12:00 AM Laboratory - Chemi stry Order HEMOGLOBIN A1C LAVENDER BLOOD SP [facility] Jun 10, 2025 12:00 AM Laboratory - Chemi stry Order MICROALBUMIN/CREATININE RATIO PANEL URINE, RANDOM SP [facility] Jun 10, 2025 12:00 AM Laboratory - Chemi stry Order CBC LAVENDER BLOOD [facility] Jun 10, 2025 12:00 AM Laboratory - Chemi stry Order COMPREHENSIVE METABOLIC PANEL LT GREEN PLASMA [facility] Encounter Notes: All associated encounter notes This section contains the clinical notes associated to the Encounter. Date/Time Encounter Note(s) Provider Source Jun 04, 2025 03:12 PM ADDENDUM: LOCAL TITLE: Addendum STANDARD TITLE: ADDENDUM DATE OF NOTE: JUN 04, 2025@15:12:24 ENTRY DATE: JUN 04, 2025@15:12:25 AUTHOR: RYDER REY EXP COSIGNER: URGENCY: STATUS: COMPLETED 's Shanna almendarezing is temporarily residing at the [facility] [place] [facility], she is wondering if he can just have lab work drawn there at the [facility], (as their calendar is full of appts. for him currently and she is trying to keep track of all of them but it is difficult). This film writer asked if she were trying to coordinate labs to be covered through [facility], to which she responded no as she reports he has Medicare and AARP coverage. admits she is unsure if the [facility] has the capacity to draw labs or if she would have to take him next door to the [facility]. This film writer explained I would call the [facility] to see if they could draw labs, (as it sounded as if she were a bit overwhelmed.) This film writer also broached with the possibility of changing her 's upcoming appt. to a video appt., (if the provider is in agreement) to which she relayed that would be most welcome, verified she does have a smart phone, she is there at the [facility] with her every day, her phone number, (which will ask [facility] to add to the chart is [phone]) with the e-mail address of [email or web address]. Called [facility] and spoke with Nurse Hebert, whom verifies they can draw lab work explaining the provider would just need to fax the orders to [phone] to the [facility]ention of the [address] [place] [address] Nurse, and supply a return fax number for the [facility] staff to [facility]. This film writer thanked Emilee for this information, relaying would forward to the PCP for consideration of ordering labs to be drawn at the [facility]. Will forward to PCP and [facility] Pact [facility] for consideration/coordination. /dottie/ RYDER REY REGISTERED NURSE Signed: 06/04/2025 15:25 Receipt Acknowledged By: 06/05/2025 09:19 /es/ IRIS ROBLERO NURSE PRACTITIONER 06/05/2025 10:33 /es/ LU Asif GERIATRIC CASE MANAGER --- Original Document --- 06/02/25 CCC: SCHEDULING ADMINISTRATION: Caller Verification Call Back Number: [phone] Caller/Recipient Relation to Patient: Other If Other Describe Relation to Patient: Spouse Caller Name: Shanna Administrative Administrative Note Reason: [facility] Administrative Note Comments: Spouse called to request 06/08/2025 lab orders to [facility], contact number [phone]. PT can be reached at number listed. IMPORTANT: This note was created by [facility] Clinical Contact Center staff. Please do not alert the staff member by adding them as a signer for future communications. Alerts are not monitored by this user. /dottie/ MARCELINO READ 10 [facility] AMS[facility] Signed: 06/02/2025 20:04 Receipt Acknowledged By: * AWAITING SIGNATURE * EARL BARRIOS MELISSA C [facility] Jun 02, 2025 08:04 PM ADMINISTRATIVE NOT E: LOCAL TITLE: CCC: SCHEDULING ADMINISTRATION STANDARD TITLE: ADMINISTRATIVE NOTE DATE OF NOTE: JUN 02, 2025@20:04:06 ENTRY DATE: JUN 02, 2025@20:04:07 AUTHOR: MARCELINO PRUITT EXP COSIGNER: URGENCY: STATUS: COMPLETED CCC: SCHEDULING ADMINISTRATION Has ADDENDA Caller Verification Call Back Number: [phone] Caller/Recipient Relation to Patient: Other If Other Describe Relation to Patient: Spouse Caller Name: Shanna Administrative Administrative Note Reason: [facility] Administrative Note Comments: Spouse called to request 06/08/2025 lab orders to [facility], contact number [phone]. PT can be reached at number listed. IMPORTANT: This note was created by [facility] Clinical Contact Center staff. Please do not alert the staff member by adding them as a signer for future communications. Alerts are not monitored by this user. /es/ MARCELINO READ 10 [place] [facility] Signed: 06/02/2025 20:04 Receipt Acknowledged By: 06/06/2025 09:24 /es/ RYDER REY REGISTERED NURSE for EARL Wolfe DENIS 06/04/2025 ADDENDUM STATUS: COMPLETED 's Shanna called relaying is temporarily residing at the [facility] [place] [facility], she is wondering if he can just have lab work drawn there at the [facility], (as their calendar is full of appts. for him currently and she is trying to keep track of all of them but it is difficult). This film writer asked if she were trying to coordinate labs to be covered through [facility], to which she responded no as she reports he has Medicare and AARP coverage. admits she is unsure if the [facility] has the capacity to draw labs or if she would have to take him next door to the [facility]. This film writer explained I would call the [facility] to see if they could draw labs, (as it sounded as if she were a bit overwhelmed.) This film writer also broached with the possibility of changing her 's upcoming appt. to a video appt., (if the provider is in agreement) to which she relayed that would be most welcome, verified she does have a smart phone, she is there at the [facility] with her every day, her phone number, (which will ask FARZANEH to add to the chart is [phone]) with the e-mail address of [email or web address]. Called [facility] and spoke with Nurse Hebert, whom verifies they can draw lab work explaining the provider would just need to fax the orders to [phone] to the [facility]ention of the [facility] [place] Nurse, and supply a return fax number for the [facility] staff to fax the results back to the [place] clinic when resulted. This film writer thanked Emilee for this information, relaying would forward to the PCP for consideration of ordering labs to be drawn at the [facility]. Will forward to PCP and [facility] Pact [facility] for consideration/coordination. /es/ RYDER REY REGISTERED NURSE Signed: 06/04/2025 15:25 Receipt Acknowledged By: 06/05/2025 09:19 /es/ IRIS ROBLERO NURSE PRACTITIONER 06/05/2025 10:33 /es/ LU Asif GERIATRIC CASE MANAGER MARCELINO PRUITT [facility]
--- OUTSIDE RECORDS SUMMARY | 2025-06-08 07:08 | XMS_ITS | Encounter Summary ---
Author Name [facility] [place] Organization [facility] [place] [facility] [place] Address [address] [place] [id number] Care Team Providers Care Client Services Coordinator Name Role Phone IRIS ROBLERO Primary Care [...] PLAN C Nov 15, 2016 PLAN C [id number] [phone] NADIR ALVARADO PATIENT MEDICARE (WNR) MEDICARE (M) PART A Jan 14, 2004 PART A [id number] NADIR ALVARADO PATIENT MEDICARE (WNR) MEDICARE (M) PART B Jan 14, 2004 PART B [id number] NADIR ALVARADO PATIENT Selected Encounter This section includes the information on record at [place] for the Encounter. Date/Time Encounter Type Encounter Description Reason Pro vider Source Jun 08, 2025 11:08 AM Outpatient Encounter PRIMARY CARE/MEDICINE IHE Encounter Template Text not used by [place] Plan of Treatment: Future Appointments (+ 6 months) and Future Tests (+/- 45 days) The Plan of Treatment section includes future care activities for the patient from all [place] [facility]. This section includes future appointments and future orders which are active, pending or scheduled. Future Appointments This section includes appointments that were scheduled to occur 6 months from the date of the Encounter, up to a maximum of 20 appointments. The data comes from all [place] [facility]. Appointment Date/Time Appointment Type Appointme nt Facility Name Jul 02, 2025 08:30 AM AM[facility]ULATORY - [facility] Active, Pending, and Scheduled Orders This section includes a listing of several types of active, pending, and scheduled orders, including clinic medications orders, diagnostic test orders, procedure orders and consult orders; where the start date of the order is 45 days before the date of the Encounter or 45 days after the date of theEncounter. The data comes from all [facility]. Test Date/Time Test Type Test Details Facility Name Jun 08, 2025 12:00 AM Laboratory - Chemi stry Order FERRITIN LT GREEN PLASMA SP ONCE [facility] Jun 08, 2025 12:00 AM Laboratory - Chemi stry Order IRON GROUP GOLD TOP SERUM SP ONCE [facility] Jun 08, 2025 12:00 AM Laboratory - Chemi stry Order VITAMIN B12 LT GREEN PLASMA SP ONCE [facility] Jun 08, 2025 12:00 AM Laboratory - Chemi stry Order FOLATE GOLD TOP SERUM SP ONCE [facility] Jun 08, 2025 12:00 AM Laboratory - Chemi stry Order BASIC METABOLIC PANEL LT GREEN PLASMA SP ONCE [facility] Jun 10, 2025 12:00 AM Laboratory - Chemi stry Order HEMOGLOBIN A1C LAVENDER BLOOD SP [facility] Jun 10, 2025 12:00 AM Laboratory - Chemi stry Order MICROALBUMIN/CREATININE RATIO PANEL URINE, RANDOM SP [facility] Jun 10, 2025 12:00 AM Laboratory - Chemi stry Order CBC LAVENDER BLOOD SP [facility] Jun 10, 2025 12:00 AM Laboratory - Chemi stry Order COMPREHENSIVE METABOLIC PANEL LT GREEN PLASMA [facility] Encounter Notes: All associated encounter notes This section contains the clinical notes associated to the Encounter. Date/Time Encounter Note(s) Provider Source Jun 08, 2025 11:08 AM SCANNED NONVA NOTE : LOCAL TITLE: SCANNED NON-VA MEDICAL RECORDS STANDARD TITLE: SCANNED NONVA NOTE DATE OF NOTE: JUN 08, 2025@11:08 ENTRY DATE: JUN 08, 2025@11:09:05 AUTHOR: IRIS ROBLERO EXP COSIGNER: URGENCY: STATUS: COMPLETED Patient records are scanned from the following facility(s): [facility] Scanned documents include: Other : labs results. This scanned record can be viewed in [employer] Client /dottie/ IRIS ROBLERO NURSE PRACTITIONER Signed: 06/08/2025 11:12 IRIS ROBLERO OC
--- OUTSIDE RECORDS SUMMARY | 2025-06-11 07:45 | XMS_ITS | Continuity of Care Document ---
Author Name [facility] Organization [facility] Care Team Providers Care Hydrologist Name Role Phone [facility] Unavailable Unavailable Problems Combined list of problems from Department of Defense and Veterans [facility] facilities. 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 [facility] Tremor Active Condition [facility] Diagnosis: ICD-10-CM N18.32 Chronic kidney disease, stage 3b Active Diagnosis JEFF[facility] W[facility]BURN Diagnosis: ICD-10-CM E11.9 Type 2 diabetes mellitus without complications Active Diagnosis [facility] Medications Combined list of outpatient medications from Department of [facility] and [facility] facilities.Medications provided include 1) outpatient medications from [...] ANEOUS ACTIVE LEX CANTU R 2021 [facility] EMPAGLIFLOZ IN 25MG TAB TAKE ONE TABLET BY MOUTH EVERY DAY ORAL SUSPEND ED 05/08/2026 [id number] Kee ROBLERO A 2024 90 [facility] EMPAGLIFLOZ IN 25MG TAB TAKE ONE TABLET BY MOUTH EVERY DAY ORAL DISCONT INUED 08/15/2025 [id number] LEX CANTU R 2024 90 [facility] EMPAGLIFLOZ IN 25MG TAB TAKE ONE TABLET BY MOUTH EVERY DAY ORAL DISCONT INUED 08/15/2025 [id number] LEX CANTU R 2023 90 [facility] EMPAGLIFLOZ IN 25MG TAB TAKE ONE TABLET BY MOUTH EVERY DAY ORAL DISCONT INUED 09/20/2024 [id number] LEX CANTU R 2023 90 [facility] EMPAGLIFLOZ IN 25MG TAB TAKE ONE TABLET BY MOUTH EVERY DAY ORAL DISCONT INUED 09/20/2024 [id number] L[facility]ANT[facility] R 2023 90 [facility] [...] BY MOUTH TWICE A DAY ORAL ACTIVE ELX CATNU R 2018 [facility] GABAPENTIN 300MG [...] ORAL ACTIVE LEX CANTU R 2019 [place] [facility] METFORMIN HCL 1000MG TAB TAKE [...] IN ORIGINAL CONTAINE R ORAL ACTIVE 03/17/2026 [id number] 5 Kee ROBLERO 2024 90 [facility] SITAGLIPTIN (EQV-ZITUVI O) 50MG TAB TAKE ONE TABLET BY MOUTH EVERY DAY FOR TYPE 2 DIABETES MELLITUS ORAL DISCONT INUED (EDIT) 11/21/2025 [id number] CHRISTIE ALEXIS 2024 90 [facility] SITAGLIPTIN (EQV-ZITUVI O) 50MG TAB TAKE ONE TABLET BY MOUTH EVERY DAY FOR TYPE 2 DIABETES MELLITUS ORAL DISCONT INUED 12/08/2024 [id number] LEX CANTU 2023 90 [facility] SITAGLIPTIN (EQV-ZITUVI O) 50MG TAB TAKE ONE TABLET BY MOUTH EVERY DAY FOR TYPE 2 DIABETES MELLITUS ORAL DISCONT INUED 04/06/2025 [id number] LEX CANTU 2023 90 [facility] TAMSULOSIN HCL 0.4MG CAP TAKE 1 CAPSULE BY MOUTH AT BEDTIME ORAL ACTIVE LEX CANTU 2016 [facility] Allergies, Adverse Reactions, Alerts Combined list of allergies from Department of Defense and Veterans Affairs facilities. It does not include entries that were removed or entered in error. Substance Category Reaction Severity Reaction type Status Date Reported Comments Source INTRAVASCULAR CONTRAST MEDIA Propensity to adverse reactions to drug (finding) active 7 [facility] TRANSDERMAL NITROGLYCERIN PATCH Propensity to adverse reactions to drug (finding) Low blood pressure active 7 [facility] Immunizations Combined list of available immunizations from the Department of Defense and Veterans Affairs facilities. Immunization Series Date Given Administered By Site Reaction Lot Number CVX Code Drug Brokerage Branch Manager Status Comments Source ZOSTER RECOMBINANT 2024 187 complet ed HISTORICA L INFORMATI ON - FROM OTHER REGISTRY, [facility] INFLUENZA, UNSPECIFIED FORMULATION 2023 88 complet ed HISTORICA L INFORMATI ON - FROM PATIENT'S RECALL, [facility] RSV, BIVALENT, PROTEIN SUBUNIT RSVPREF, DILUENT RECONSTITUTED , 0.5 ML, PF 2022 DACIA ZAVALETA LEFT DELTO ID [id number] 305 complet ed [place]MINIST[place], Patient tolerated injection well. [facility] INFLUENZA, UNSPECIFIED FORMULATION 2022 88 complet ed HISTORICA L INFORMATI ON - FROM PATIENT'S RECALL, [facility] COVID-19 (PFIZER), MRNA, LNP-S, PF, AUDREY-SUCROSE, 30 MCG/0.3 ML (AGES 12+ YEARS) 2022 309 complet ed HISTORICA L INFORMATI ON - FROM OTHER REGISTRY, [facility] COVID-19 (PFIZER), MRNA, LNP-S, BIVALENT BOOSTER, PF, 30 MCG/0.3 ML DOSE 2021 300 complet ed Booster for Series, HISTORICA L INFORMATI ON - SOURCE UNSPECIFI ED, Per COVID-19 Vaccinati on Record Card Lot#: [id number] Mfr: PFIZER, INC [facility] INFLUENZA, UNSPECIFIED FORMULATION 2021 88 complet ed HISTORICA L INFORMATI ON - SOURCE UNSPECIFI ED, Per patient [facility] INFLUENZA, UNSPECIFIED FORMULATION 2020 88 complet ed [facility] COVID-19 (PFIZER), MRNA, LNP-S, PF, 30 MCG/0.3 ML DOSE 3 2020 208 complet ed HISTORICA L INFORMATI ON - SOURCE UNSPECIFI ED, Per COVID-19 Vaccinati on Record Card Mfr: PFIZER, INC [facility] COVID-19 (PFIZER), MRNA, LNP-S, PF, 30 MCG/0.3 ML DOSE 2 2020 208 complet ed [facility] COVID-19 (PFIZER), MRNA, LNP-S, PF, 30 MCG/0.3 ML DOSE 1 2020 208 complet ed [facility] ZOSTER RECOMBINANT 2019 187 complet ed [facility] INFLUENZA, TRIVALENT, ADJUVANTED 2 2019 168 complet ed HISTORICA L INFORMATI ON - FROM OTHER REGISTRY, [facility] INFLUENZA, UNSPECIFIED FORMULATION 2019 88 complet ed [facility] TDAP 2018 115 complet ed [facility] ZOSTER RECOMBINANT 2018 187 complet ed [facility] INFLUENZA (HISTORICAL) [address] Pineda SINGER [facility] INFLUENZA (HISTORICAL) 2017 88 complet ed Civil pcp [facility] PNEUMOCOCCAL CONJUGATE PCV 13 2016 133 complet ed Immunizat ion record received from [facility], tel: [phone], fax: [phone]. [facility] INFLUENZA (HISTORICAL) [address] [facility], UNSPECIFIED FORMULATION 1 2016 88 complet ed HISTORICA L INFORMATI ON - FROM OTHER REGISTRY, [facility] ZOSTER LIVE 1 2014 121 complet ed HISTORICA L INFORMATI ON - FROM OTHER REGISTRY, [facility] PNEUMOCOCCAL POLYSACCHARID E PPV23 2014 33 complet ed Immunizat ion record received from [facility], tel: , fax: . [facility] PNEUMOCOCCAL, UNSPECIFIED FORMULATION 2014 109 complet ed Immunizat ion record received from [facility], tel: , fax: [phone]. [facility] Results Combined list of recent chemistry, hematology and other laboratory results from Department of Defense and Veterans Affairs, ranging from 15 months to all on record, depending upon the facility. Order Name Results Value Reference Range Date Interpretation Specimen Comments Source LIPID PROFILE CHOLESTEROL [MASS/VOLUM E] IN SERUM [...] Oct 21, 2023 03:23 PM Reporting Lab: [place] [id number] Performing Lab: [place] [phone] [facility] LIPID PROFILE CHOLESTEROL IN LDL [MASS/VOLUM E] [...] Oct 21, 2023 03:23 PM Reporting Lab: [place] [phone] Performing Lab: [place] [id number] [place] [address] LIPID PROFILE CHOLESTEROL IN HDL [MASS/VOLUM E] [...] Oct 21, 2023 03:23 PM Reporting Lab: [place] [phone] Performing Lab: [place] [phone] [facility] LIPID PROFILE TRIGLYCERID E [MASS/VOLUM E] IN [...] Oct 21, 2023 03:23 PM Reporting Lab: [place] [phone] Performing Lab: [place] [phone] [facility] COMPREHEN SIVE METABOLIC PANEL ALBUMIN [MASS/VOLUM E] [...] Oct 21, 2023 03:23 PM Reporting Lab: [place] [phone] Performing Lab: [place] [phone] [facility] COMPREHEN SIVE METABOLIC PANEL ALKALINE PHOSPHATASE [ENZYMATIC [...] Oct 21, 2023 03:23 PM Reporting Lab: [place] [phone] Performing Lab: [place] [phone] COMPREHEN SIVE METABOLIC PANEL ALANINE AMINOTRANSF ERASE [...] Oct 21, 2023 03:23 PM Reporting Lab: [place] [phone] Performing Lab: [place] [phone] METABOLIC PANEL ASPARTATE AMINOTRANSF ERASE [ENZYMATIC ACTIVITY/VO [...] Oct 21, 2023 03:23 PM Reporting Lab: [place] [phone] Performing Lab: [place] [phone] [facility] COMPREHEN SIVE METABOLIC PANEL UREA NITROGEN [MASS/VOLUM [...] Oct 21, 2023 03:23 PM Reporting Lab: [place] [phone] Performing Lab: [place] [phone] [facility] COMPREHEN SIVE METABOLIC PANEL CALCIUM [MASS/VOLUM E] [...] Oct 21, 2023 03:23 PM Reporting Lab: [place] [phone] Performing Lab: [place] [phone] [facility] COMPREHEN SIVE METABOLIC PANEL CREATININE [MASS/VOLUM E] [...] Oct 21, 2023 03:23 PM Reporting Lab: [place] [phone] Performing Lab: [place] [phone] [place] [address] COMPREHEN SIVE METABOLIC PANEL CARBON DIOXIDE, TOTAL [...] Oct 21, 2023 03:23 PM Reporting Lab: [address] [phone] Performing Lab: [place] [phone] [facility] COMPREHEN SIVE METABOLIC PANEL GLUCOSE [MASS/VOLUM E] IN SERUM OR PLASMA 298 mg/dL 82 - 115 10/17 H Specimen Type: PLASMA Comment: DLDLREF RANGE: NEAR OR ABOVE OPTIMAL: 100-129 mg/dL BORDERLINE DLDLHIGH: 130-159 mg/dL HIGH: 160-189 mg/dL VERY HIGH: >=190 TRIG REF RANGE: BORDERLINE HIGH: 150-199 mg/dL HIGH: 200-499 mg/dL TRIG VERY HIGH: >=500 mg/dL CREA eGFR was calculated using the CKD-EPI 202 equation. CHOL REF RANGE: BORDERLINE HIGH: 200-239 mg/dL HIGH: >=240 mg/dL Ordering Provider: NATALIE CANTU Report Released Date/Time: Oct 21, 2023 03:23 PM Reporting Lab: [place] [id number] Performing Lab: [place] [id number] [place] [address] COMPREHEN SIVE METABOLIC PANEL PROTEIN [MASS/VOLUM E] [...] Oct 21, 2023 03:23 PM Reporting Lab: [place] [phone] Performing Lab: [place] [phone] [place] [address] COMPREHEN SIVE METABOLIC PANEL SODIUM [MOLES/VOLU ME] [...] Oct 21, 2023 03:23 PM Reporting Lab: [place] [phone] Performing Lab: [place] [phone] [place] [address] COMPREHEN SIVE METABOLIC PANEL CHLORIDE [MOLES/VOLU ME] [...] HIGH: >=240 mg/dL Ordering Provider: NATALIE CANTU EX R Report Released Date/Time: Oct 21, 2023 03:23 PM Reporting Lab: [place] [phone] Performing Lab: [place] [phone] [place] [address] COMPREHEN SIVE METABOLIC PANEL BILIRUBIN.T OTAL [MASS/VOLUM [...] HIGH: >=240 mg/dL Ordering Provider: NATALIE CANTU EX R Report Released Date/Time: Oct 21, 2023 03:23 PM Reporting Lab: [place] [phone] Performing Lab: [place] [phone] [facility] COMPREHEN SIVE METABOLIC PANEL POTASSIUM [MOLES/VOLU ME] [...] Oct 21, 2023 03:23 PM Reporting Lab: [place] [phone] Performing Lab: [place] [phone] [place] [address] COMPREHEN SIVE METABOLIC PANEL ANION GAP IN [...] Oct 21, 2023 03:23 PM Reporting Lab: [place] [phone] Performing Lab: [place] [phone] [facility] COMPREHEN SIVE METABOLIC PANEL GLOMERULAR FILTRATION RATE/1.73 [...] Oct 21, 2023 03:23 PM Reporting Lab: [address] [phone] Performing Lab: [place] [phone] [facility] HEMOGLOBI N A1C HEMOGLOBIN A1C/HEMOGLO BIN.TOTAL IN [...] Oct 21, 2023 03:23 PM Reporting Lab: [place] [phone] Performing Lab: [place] [phone] [facility] CBC LEUKOCYTES [#/VOLUME] IN BLOOD BY AUTOMATED COUNT 6.6 10*3/u L 3.6 - 11.0 10/17 Specimen Type: BLOOD No comment entered. Ordering Provider: NATALIE CANTU Report Released Date/Time: Oct 21, 2023 03:23 PM Reporting Lab: [address] [phone] Performing Lab: [place] [phone] [facility] CBC ERYTHROCYTE S [#/VOLUME] IN BLOOD BY AUTOMATED COUNT 4.50 10*6/u L 4.47 - 5.83 10/17 Specimen Type: BLOOD No comment entered. Ordering Provider: PEPE,AL EX R Report Released Date/Time: Oct 21, 2023 03:23 PM Reporting Lab: [place] [phone] Performing Lab: [place] [phone] CBC HEMOGLOBIN [MASS/VOLUM E] IN BLOOD 15.5 g/dL 13.6 - 17.4 10/17 Specimen Type: BLOOD No comment entered. Ordering Provider: NATALIE CANTU EX R Report Released Date/Time: Oct 21, 2023 03:23 PM Reporting Lab: [place] [phone] Performing Lab: [place] [phone] [facility] HEMATOCRIT [VOLUME FRACTION] OF BLOOD BY AUTOMATED COUNT 45.9 40.0 - 51.0 10/17 Specimen Type: BLOOD No comment entered. Ordering Provider: NATALIE CANTU R Report Released Date/Time: Oct 21, 2023 03:23 PM Reporting Lab: [place] [phone] Performing Lab: [place] [phone] [place] [address] CBC MCV [ENTITIC VOLUME] BY AUTOMATED COUNT 101.9 fL 80.0 - 96.0 10/17 H Specimen Type: BLOOD No comment entered. Ordering Provider: NATALIE CANTU R Report Released Date/Time: Oct 21, 2023 03:23 PM Reporting Lab: [place] [phone] Performing Lab: [place] [phone] CBC MCH [ENTITIC MASS] BY AUTOMATED COUNT 34.3 pg 27.0 - 31.0 10/17 H Specimen Type: BLOOD No comment entered. Ordering Provider: NATALIE CANTU R Report Released Date/Time: Oct 21, 2023 03:23 PM Reporting Lab: [place] [phone] Performing Lab: [place] [phone] [facility] CBC MCHC [MASS/VOLUM E] BY AUTOMATED COUNT 33.7 g/dL 31.5 - 36.5 10/17 Specimen Type: BLOOD No comment entered. Ordering Provider: NATALIE CANTU R Report Released Date/Time: Oct 21, 2023 03:23 PM Reporting Lab: [place] [phone] Performing Lab: [place] [phone] [place] [address] CBC PLATELETS [#/VOLUME] IN BLOOD BY AUTOMATED COUNT 165 10*3/u L 150 - 400 10/17 Specimen Type: BLOOD No comment entered. Ordering Provider: NATALIE CANTU R Report Released Date/Time: Oct 21, 2023 03:23 PM Reporting Lab: [place] [phone] Performing Lab: [place] [phone] [facility] LYMPHOCYTES /100 LEUKOCYTES IN BLOOD BY AUTOMATED COUNT 11.4 21.0 - 51.0 10/17 L Specimen Type: BLOOD No comment entered. Ordering Provider: NATALIE CANTU R Report Released Date/Time: Oct 21, 2023 03:23 PM Reporting Lab: [place] [phone] Performing Lab: [place] [phone] [place] [address] CBC MONOCYTES/1 00 LEUKOCYTES IN BLOOD BY AUTOMATED COUNT 8.3 4.0 - 8.0 10/17 H Specimen Type: BLOOD No comment entered. Ordering Provider: NATALIE CANTU Report Released Date/Time: Oct 21, 2023 03:23 PM Reporting Lab: [place] [phone] Performing Lab: [place] [phone] [facility] NUCLEATED ERYTHROCYTE S/100 LEUKOCYTES [RATIO] IN BLOOD BY MANUAL COUNT 0.0 /100{W BCs} 10/17 Specimen Type: BLOOD No comment entered. Ordering Provider: NATALIE CANTU R Report Released Date/Time: Oct 21, 2023 03:23 PM Reporting Lab: [address] [phone] Performing Lab: [place] [phone] [place] [address] CBC ERYTHROCYTE DISTRIBUTIO N WIDTH [RATIO] BY AUTOMATED COUNT 14.6 11.2 - 15.8 10/17 Specimen Type: BLOOD No comment entered. Ordering Provider: NATALIE CANTU Report Released Date/Time: Oct 21, 2023 03:23 PM Reporting Lab: [place] [phone] Performing Lab: [place] [phone] [facility] NEUTROPHILS /100 LEUKOCYTES IN BLOOD BY AUTOMATED COUNT 78.0 54.0 - 78.0 10/17 Specimen Type: BLOOD No comment entered. Ordering Provider: NATALIE CANTU Report Released Date/Time: Oct 21, 2023 03:23 PM Reporting Lab: [place] [phone] Performing Lab: [place] [phone] [facility] EOSINOPHILS /100 LEUKOCYTES IN BLOOD BY AUTOMATED COUNT 2.0 0.0 - 3.0 10/17 Specimen Type: BLOOD No comment entered. Ordering Provider: NATALIE CANTU Report Released Date/Time: Oct 21, 2023 03:23 PM Reporting Lab: [place] [phone] Performing Lab: [place] [phone] [facility] BASOPHILS/1 00 LEUKOCYTES IN BLOOD BY AUTOMATED COUNT 0.3 0.0 - 3.0 10/17 Specimen Type: BLOOD No comment entered. Ordering Provider: NATALIE CANTU Report Released Date/Time: Oct 21, 2023 03:23 PM Reporting Lab: [place] [phone] Performing Lab: [place] [phone] [facility] LYMPHOCYTES [#/VOLUME] IN BLOOD BY AUTOMATED COUNT 0.8 10*3/u L 0.8 - 5.0 10/17 Specimen Type: BLOOD No comment entered. Ordering Provider: NATALIE CANTU Report Released Date/Time: Oct 21, 2023 03:23 PM Reporting Lab: [place] [phone] Performing Lab: [place] [phone] [facility] CBC NEUTROPHILS [#/VOLUME] IN BLOOD 5.1 10*3/u L 1.9 - 8.6 10/17 Specimen Type: BLOOD No comment entered. Ordering Provider: NATALIE CANTU Report Released Date/Time: Oct 21, 2023 03:23 PM Reporting Lab: [place] [phone] Performing Lab: [place] [phone] [facility] CBC BASOPHILS [#/VOLUME] IN BLOOD BY AUTOMATED COUNT 0.0 10*3/u L 0.0 - 0.3 10/17 Specimen Type: BLOOD No comment entered. Ordering Provider: NATALIE CANTU Report Released Date/Time: Oct 21, 2023 03:23 PM Reporting Lab: [place] [phone] Performing Lab: [place] [phone] [place] [address] CBC MONOCYTES [#/VOLUME] IN BLOOD BY AUTOMATED COUNT 0.6 10*3/u L 0.1 - 0.9 10/17 Specimen Type: BLOOD No comment entered. Ordering Provider: NATALIE CANTU Report Released Date/Time: Oct 21, 2023 03:23 PM Reporting Lab: [place] [phone] Performing Lab: [place] [phone] [facility] CBC EOSINOPHILS [#/VOLUME] IN BLOOD BY AUTOMATED COUNT 0.1 10*3/u L 0.0 - 0.3 10/17 Specimen Type: BLOOD No comment entered. Ordering Provider: NATALIE CANTU Report Released Date/Time: Oct 21, 2023 03:23 PM Reporting Lab: [place] [phone] Performing Lab: [place] [phone] [facility] CBC PLATELET MEAN VOLUME [ENTITIC VOLUME] IN BLOOD BY AUTOMATED COUNT 10.2 fL 7.4 - 11.4 10/17 Specimen Type: BLOOD No comment entered. Ordering Provider: NATALIE CANTU R Report Released Date/Time: Oct 21, 2023 03:23 PM Reporting Lab: [address] [address] Performing Lab: [place] [phone] [facility] MAGNESIUM MAGNESIUM [MASS/VOLUM E] IN SERUM OR [...] Oct 21, 2023 03:23 PM Reporting Lab: [address] [address] Performing Lab: [place] [phone] [facility] LIPID PROFILE CHOLESTEROL [MASS/VOLUM E] IN SERUM [...] Nov 12, 2022 02:04 PM Reporting Lab: [address] [phone] Performing Lab: [place] [phone] [facility] LIPID PROFILE CHOLESTEROL IN LDL [MASS/VOLUM E] [...] Nov 12, 2022 02:04 PM Reporting Lab: [place] [phone] Performing Lab: [place] [phone] LIPID PROFILE CHOLESTEROL IN HDL [MASS/VOLUM [...] Nov 12, 2022 02:04 PM Reporting Lab: [place] [phone] Performing Lab: [place] [phone] LIPID PROFILE TRIGLYCERID E [MASS/VOLUM E] [...] Nov 12, 2022 02:04 PM Reporting Lab: [place] [phone] Performing Lab: [place] [phone] [facility] COMPREHEN SIVE METABOLIC PANEL ALBUMIN [MASS/VOLUM E] [...] Nov 12, 2022 02:04 PM Reporting Lab: [place] [phone] Performing Lab: [address] COMPREHEN SIVE METABOLIC PANEL ALKALINE PHOSPHATASE [ENZYMATIC [...] Nov 12, 2022 02:04 PM Reporting Lab: [place] [phone] Performing Lab: [place] [phone] COMPREHEN SIVE METABOLIC PANEL ALANINE AMINOTRANSF ERASE [...] Nov 12, 2022 02:04 PM Reporting Lab: [place] [phone] Performing Lab: [address] COMPREHEN SIVE METABOLIC PANEL ASPARTATE AMINOTRANSF ERASE [...] Nov 12, 2022 02:04 PM Reporting Lab: [place] [phone] Performing Lab: [place] [phone] COMPREHEN SIVE METABOLIC PANEL UREA NITROGEN [MASS/VOLUM E] IN SERUM OR PLASMA 19 mg/dL 9 - 10/21 Specimen Type: PLASMA Comment: TRIGLYCERID E REF RANGE: NORMAL <150 mg/dL BORDERLINE HIGH: 150-199 TRIGLYCERID E mg/dL HIGH: 200-499 mg/dL VERY HIGH: >=500 mg/dL CREATININE eGFR was calculated using the CKD-EPI 2020 equation. Ordering Provider: NATALIE CANTU R Report Released Date/Time: Nov 12, 2022 02:04 PM Reporting Lab: [place] [phone] Performing Lab: [place] [phone] COMPREHEN SIVE METABOLIC PANEL CALCIUM [MASS/VOLUM [...] Nov 12, 2022 02:04 PM Reporting Lab: [place] [phone] Performing Lab: [place] [phone] [place] [address] COMPREHEN SIVE METABOLIC PANEL CREATININE [MASS/VOLUM E] [...] Nov 12, 2022 02:04 PM Reporting Lab: [place] [phone] Performing Lab: [place] [phone] [place] [address] COMPREHEN SIVE METABOLIC PANEL CARBON DIOXIDE, TOTAL [...] Nov 12, 2022 02:04 PM Reporting Lab: [place] [phone] Performing Lab: [place] [phone] [place] [address] COMPREHEN SIVE METABOLIC PANEL GLUCOSE [MASS/VOLUM E] [...] Nov 12, 2022 02:04 PM Reporting Lab: [place] [phone] Performing Lab: [place] [phone] [place] [address] COMPREHEN SIVE METABOLIC PANEL PROTEIN [MASS/VOLUM E] [...] Nov 12, 2022 02:04 PM Reporting Lab: [place] [address] Performing Lab: [address] COMPREHEN SIVE METABOLIC PANEL SODIUM [MOLES/VOLU [...] Nov 12, 2022 02:04 PM Reporting Lab: [place] [address] Performing Lab: [address] COMPREHEN SIVE METABOLIC PANEL CHLORIDE [MOLES/VOLU [...] Nov 12, 2022 02:04 PM Reporting Lab: [place] [address] Performing Lab: [address] COMPREHEN SIVE METABOLIC PANEL BILIRUBIN.T OTAL [MASS/VOLUM E] IN SERUM OR PLASMA 0.4 mg/dL 0.3 - 1.2 10/21 Specimen Type: PLASMA Comment: TRIGLYCERID E REF RANGE: NORMAL <150 mg/dL BORDERLINE HIGH: 150-199 TRIGLYCERID E mg/dL HIGH: 200-499 mg/dL VERY HIGH: >=500 mg/dL CREATININE eGFR was calculated using the CKD-EPI 2021 equation. Ordering Provider: NATALIE CANTU R Report Released Date/Time: Nov 12, 2022 02:04 PM Reporting Lab: [place] [phone] [address]forming Lab[address] METABOLIC PANEL POTASSIUM [MOLES/VOLU ME] IN SERUM OR PLASMA 4.2 mmol/L 3.5 - 5.1 10/21 Specimen Type: PLASMA Comment: TRIGLYCERID E REF RANGE: NORMAL <150 mg/dL BORDERLINE HIGH: 150-199 TRIGLYCERID E mg/dL HIGH: 200-499 mg/dL VERY HIGH: >=500 mg/dL CREATININE eGFR was calculated using the CKD-EPI 2020 equation. Ordering Provider: NATLAIE CANTU R Report Released Date/Time: Nov 12, 2022 02:04 PM Reporting Lab: [place] [phone] Performing Lab: [address] METABOLIC PANEL ANION GAP IN SERUM OR PLASMA 17.2 mmol/L 10 - 20 10/21 Specimen Type: PLASMA Comment: TRIGLYCERID E REF RANGE: NORMAL <150 mg/dL BORDERLINE HIGH: 150-199 TRIGLYCERID E mg/dL HIGH: 200-499 mg/dL VERY HIGH: >=500 mg/dL CREATININE eGFR was calculated using the CKD-EPI 2020 equation. Ordering Provider: NATALIE CANTU R Report Released Date/Time: Nov 12, 2022 02:04 PM Reporting Lab: [place] [phone] Performing Lab: [place] [phone] METABOLIC PANEL GLOMERULAR FILTRATION RATE/1.73 SQ M.PREDICTED [...] Nov 12, 2022 02:04 PM Reporting Lab: [address] [phone] Performing Lab: [place] [phone] [place] [address] HEMOGLOBI N A1C HEMOGLOBIN A1C/HEMOGLO BIN.TOTAL IN [...] Nov 12, 2022 02:04 PM Reporting Lab: [place] [phone] Performing Lab: [place] [phone] MAGNESIUM MAGNESIUM [MASS/VOLUM E] IN SERUM OR PLASMA 2.2 mg/dL 1.8 - 2.4 10/21 Specimen Type: PLASMA Comment: TRIGLYCERID E REF RANGE: NORMAL <150 mg/dL BORDERLINE HIGH: 150-199 TRIGLYCERID E mg/dL HIGH: 200-499 mg/dL VERY HIGH: >=500 mg/dL Ordering Provider: NATALIE CANTU R Report Released Date/Time: Nov 12, 2022 02:04 PM Reporting Lab: [address] [phone] Performing Lab: [place] [phone] [facility] LEUKOCYTES [#/VOLUME] IN BLOOD BY AUTOMATED COUNT 6.6 10*3/u L 3.6 - 11.0 10/21 Specimen Type: BLOOD No comment entered. Ordering Provider: NATALIE CANTU R Report Released Date/Time: Nov 12, 2022 02:04 PM Reporting Lab: [address] [phone] Performing Lab: [place] [phone] [facility] ERYTHROCYTE S [#/VOLUME] IN BLOOD BY AUTOMATED COUNT 4.67 10*6/u L 4.47 - 5.83 10/21 Specimen Type: BLOOD No comment entered. Ordering Provider: NATALIE CANTU Report Released Date/Time: Nov 12, 2022 02:04 PM Reporting Lab: [place] [phone] Performing Lab: [place] [id number] CBC HEMOGLOBIN [MASS/VOLUM E] IN BLOOD 15.9 g/dL 13.6 - 17.4 10/21 Specimen Type: BLOOD No comment entered. Ordering Provider: NATALIE CANTU Report Released Date/Time: Nov 12, 2022 02:04 PM Reporting Lab: [place] [phone] Performing Lab: [place] [id number] CBC HEMATOCRIT [VOLUME FRACTION] OF BLOOD BY AUTOMATED COUNT 48.0 40.0 - 51.0 10/21 Specimen Type: BLOOD No comment entered. Ordering Provider: NATALIE CANTU Report Released Date/Time: Nov 12, 2022 02:04 PM Reporting Lab: [place] [phone] Performing Lab: [place] [id number] CBC MCV [ENTITIC VOLUME] BY AUTOMATED COUNT 102.8 fL 80.0 - 96.0 10/21 H Specimen Type: BLOOD No comment entered. Ordering Provider: NATALIE CANTU Report Released Date/Time: Nov 12, 2022 02:04 PM Reporting Lab: [place] [phone] Performing Lab: [place] [id number] CBC MCH [ENTITIC MASS] BY AUTOMATED COUNT 34.1 pg 27.0 - 31.0 10/21 H Specimen Type: BLOOD No comment entered. Ordering Provider: NATALIE CANTU R Report Released Date/Time: Nov 12, 2022 02:04 PM Reporting Lab: [place] [phone] Performing Lab: [place] [phone] [facility] CBC MCHC [MASS/VOLUM E] BY AUTOMATED COUNT 33.2 g/dL 31.5 - 36.5 10/21 Specimen Type: BLOOD No comment entered. Ordering Provider: NATALIE CANTU R Report Released Date/Time: Nov 12, 2022 02:04 PM Reporting Lab: [place] [phone] Performing Lab: [place] [phone] [place] [address] CBC PLATELETS [#/VOLUME] IN BLOOD BY AUTOMATED COUNT 175 10*3/u L 150 - 400 10/21 Specimen Type: BLOOD No comment entered. Ordering Provider: NATALIE CANTU R Report Released Date/Time: Nov 12, 2022 02:04 PM Reporting Lab: [place] [phone] Performing Lab: [place] [id number] CBC LYMPHOCYTES /100 LEUKOCYTES IN BLOOD BY AUTOMATED COUNT 12.2 21.0 - 51.0 10/21 L Specimen Type: BLOOD No comment entered. Ordering Provider: NATALIE CANTU Report Released Date/Time: Nov 12, 2022 02:04 PM Reporting Lab: [place] [phone] Performing Lab: [place] [phone] [place] [address] CBC MONOCYTES/1 00 LEUKOCYTES IN BLOOD BY AUTOMATED COUNT 9.1 4.0 - 8.0 10/21 H Specimen Type: BLOOD No comment entered. Ordering Provider: NATALIE CANTU R Report Released Date/Time: Nov 12, 2022 02:04 PM Reporting Lab: [place] [phone] Performing Lab: [place] [phone] CBC NUCLEATED ERYTHROCYTE S/100 LEUKOCYTES [RATIO] IN BLOOD BY MANUAL COUNT 0.1 /100{W BCs} 12/07 /2023 Specimen Type: BLOOD No comment entered. Ordering Provider: NATALIE CANTU Report Released Date/Time: Nov 12, 2022 02:04 PM Reporting Lab: [place] [phone] Performing Lab: [place] [phone] CBC ERYTHROCYTE DISTRIBUTIO N WIDTH [RATIO] BY AUTOMATED COUNT 15.3 11.2 - 15.8 10/21 Specimen Type: BLOOD No comment entered. Ordering Provider: NATALIE CANTU Report Released Date/Time: Nov 12, 2022 02:04 PM Reporting Lab: [place] [phone] Performing Lab: [place] [phone] CBC NEUTROPHILS /100 LEUKOCYTES IN BLOOD BY AUTOMATED COUNT 76.6 54.0 - 78.0 10/21 Specimen Type: BLOOD No comment entered. Ordering Provider: NATALIE CANTU Report Released Date/Time: Nov 12, 2022 02:04 PM Reporting Lab: [place] [phone] Performing Lab: [place] [phone] CBC EOSINOPHILS /100 LEUKOCYTES IN BLOOD BY AUTOMATED COUNT 1.5 0.0 - 3.0 10/21 Specimen Type: BLOOD No comment entered. Ordering Provider: NATALIE CANTU Report Released Date/Time: Nov 12, 2022 02:04 PM Reporting Lab: [place] [phone] Performing Lab: [place] [phone] CBC BASOPHILS/1 00 LEUKOCYTES IN BLOOD BY AUTOMATED COUNT 0.6 0.0 - 3.0 10/21 Specimen Type: BLOOD No comment entered. Ordering Provider: NATALIE CANTU Report Released Date/Time: Nov 12, 2022 02:04 PM Reporting Lab: [address] [phone] Performing Lab: [address] [address] [facility] CBC LYMPHOCYTES [#/VOLUME] IN BLOOD BY AUTOMATED COUNT 0.8 10*3/u L 0.8 - 5.0 10/21 Specimen Type: BLOOD No comment entered. Ordering Provider: NATALIE CANTU Report Released Date/Time: Nov 12, 2022 02:04 PM Reporting Lab: [place] [phone] Performing Lab: [place] [phone] CBC NEUTROPHILS [#/VOLUME] IN BLOOD 5.1 10*3/u L 1.9 - 8.6 10/21 Specimen Type: BLOOD No comment entered. Ordering Provider: NATALIE CANTU Report Released Date/Time: Nov 12, 2022 02:04 PM Reporting Lab: [place] [phone] Performing Lab: [place] [phone] CBC BASOPHILS [#/VOLUME] IN BLOOD BY AUTOMATED COUNT 0.0 10*3/u L 0.0 - 0.3 10/21 Specimen Type: BLOOD No comment entered. Ordering Provider: NATALIE CANTU Report Released Date/Time: Nov 12, 2022 02:04 PM Reporting Lab: [place] [phone] Performing Lab: [place] [phone] CBC MONOCYTES [#/VOLUME] IN BLOOD BY AUTOMATED COUNT 0.6 10*3/u L 0.1 - 0.9 10/21 Specimen Type: BLOOD No comment entered. Ordering Provider: NATALIE CANTU Report Released Date/Time: Nov 12, 2022 02:04 PM Reporting Lab: [place] [phone] Performing Lab: [place] [phone] CBC EOSINOPHILS [#/VOLUME] IN BLOOD BY AUTOMATED COUNT 0.1 10*3/u L 0.0 - 0.3 10/21 Specimen Type: BLOOD No comment entered. Ordering Provider: NATLAIE CANTU Report Released Date/Time: Nov 12, 2022 02:04 PM Reporting Lab: [place] [phone] [facility] [address] Performing Lab: [facility] [id number] [place] [phone] [facility] CBC PLATELET MEAN VOLUME [ENTITIC VOLUME] IN BLOOD BY AUTOMATED COUNT 10.3 fL 7.4 - 11.4 10/21 Specimen Type: BLOOD No comment entered. Ordering Provider: NATALIE CANTU Report Released Date/Time: Nov 12, 2022 02:04 PM Reporting Lab: [facility] [id number] [place] [phone] Performing Lab: [facility] [id number] [place] [phone] [facility] Vital Signs Combined list of inpatient and outpatient Vital Signs from Department of [facility] and [facility], ranging from 12 months to all on record, depending upon the facility. Vital Sign Value Date Comments Source SYSTOLIC BLOOD PRESSURE 131 12/07/2024 10:54:29 [facility] DIASTOLIC BLOOD PRESSURE 69 12/07/2024 10:54:29 [facility] PULSE OXIMETRY 94 12/07/2024 10:54:29 [facility] WEIGHT 187.9 12/07/2024 10:54:29 [facility] BMI 27 kg/m2 12/07/2024 10:54:29 [facility] PAIN 0 12/07/2024 10:54:29 [facility] TEMPERATURE 97.9 12/07/2024 10:54:29 [facility] PULSE 76 12/07/2024 10:54:29 [facility] RESPIRATION 16 12/07/2024 10:54:29 [facility] Encounters Combined list of: 1) Encounters from Department of Veterans Affairs facilities going backup to the last 18 months, not all [place] inpatient encounters are included; 2) Encounters from the Department of [facility] facilities going backup to 280 months. Location Location Details Encounter Type Encounter Number Reason For Visit Attending Provider ADM Date DC Date Status Disposition Source [facility] Outpatient Encounter [id number] 04/05 [facility] Outpatient Encounter [id number] 08/05 [facility] Outpatient Encounter [id number] 08/11 [facility] Outpatient Encounter [id number] 08/15 [facility] En[facility] [id number] 09/09 [facility] Outpatient Encounter [id number] 11/18 [facility] Outpatient Encounter [id number] 11/20 [facility] FEE [id number] Diagnos is: ICD-10- CM E11.9 Type 2 diabete s mellitu s without complic ations CHRISTIE ZAVALETA 12/07 MANISH Tate [facility] OFFICE O/P EST MOD 30 MIN [id number] Diagnos is: ICD-10- CM E11.9 Type 2 diabete s mellitu s without complic ations JAMIE ALEXIS 12/07 [facility] Outpatient Encounter [id number] 12/08 [facility] Outpatient Encounter [id number] 03/16 [facility] NQHP OL DIG ASSMT&MGMT 5-10 [id number] Diagnos is: ICD-10- CM N18.32 Chronic kidney disease , stage 3b GINI NUNEZ 03/16 [place] [facility] Outpatient Encounter [id number] 04/05 [facility] Outpatient Encounter [id number] 05/06 [facility] Outpatient Encounter [id number] 06/02 [facility] Outpatient Encounter [id number] 06/08 LUCRECIA MOROCHO [facility] Social History Combined list of available smoking, tobacco, and other social history from Department of Defense and Veterans Affairs facilities. Social History Type Response Date Comment Sourc e Tobacco smoking status NHIS VA-TOBACCO USE FORMER CIGARETTES 12/07/2024 [facility] History of tobacco use VA-TOBACCO NEVER USED OTHER TYPE 12/07/2024 [facility] History of tobacco use VA-TOBACCO QUIT 1 5 YRS OR MORE 10/21/2023 [facility] History of tobacco use VA-TOBACCO FORMER USER 11/12/2022 [facility] History of tobacco use VA-TOBACCO QUIT 1 5 YRS OR MORE 10/31/2021 [facility] History of tobacco use VA-TOBACCO FORMER USER 11/06/2020 [facility] History of tobacco use VA-TOBACCO FORMER USER 11/04/2018 [facility] History of tobacco use VA-TOBACCO NEVER USED 11/04/2018 [facility] History of tobacco use QUIT TOBACCO >7 YEARS AGO 7 [facility] Plan of Care List of future care activities from Department of Veterans Affairs facilities. Additional future care activities may be listed in the Assessment and Plan section. Date/Time Care Activity Care Activity Detail Facili ty 07/02/2025 AMBULATORY - NONE AMBULATORY - NONE [facility]
--- OUTSIDE RECORDS SUMMARY | 2025-06-11 23:59 | XMS_ITS | Continuity of Care Document ---
Author Organization [facility] Address [address] [place] [address] Care Team Providers Care Fisher Trawl Net Name Role Phone Pj Sung Primary Care Physician [phone] Encounter [id number] Date(s): 06/11/25 - 06/11/25 [facility] [address] [place], [place] [address] Encounter Diagnosis BPH with urinary obstruction(Discharge Diagnosis) - 06/11/25 Discharge Disposition: Home (Routine DC) Attending Physician: LU OLMEDO PA-C Encounter Type: Clinic Allergies, Adverse Reactions, Alerts Substance Criticality Severity Reaction Reaction Severity Status simvastatin elevated liver enzymes Active aminolevulinic acid Unknown Active statins Unknown Active Nitroglycerin Patch Unknown Active Contrast Dye Unknown Active Nitro TD Patch-A Unknown Act vu Assessment and Plan Future Appointments Appointment Date:03/04/2026 09:00:00 AM Scheduled Provider:MARQUIS CAMPBELL MD Location:[facility] Appointment Type:URO Office Visit Immunizations Given and Recorded Vaccine Date Status Refusal Reason zoster vaccine, inactivated 04/05/25 Recorded zoster vaccine, inactivated 11/06/20 Recorded zoster vaccine, inactivated 10/30/19 Recorded RSV vaccine, preF A-preF B, recombinant 10/21/23 R ecorded SARS-CoV-2 (COVID-19) [id number] 1 10/21/22 Recorded SARS-CoV-2 (COVID-19) mRNA BNT-162b2 vax 08/26/21 Recorded SARS-CoV-2 (COVID-19) mRNA BNT-162b2 vax 01/01/21 Recorded SARS-CoV-2 (COVID-19) mRNA BNT-162b2 vax 12/09/20 Recorded influenza virus vaccine, inactivated 08/27/20 Chuckie rded diphtheria/pertussis, acel/tetanus adult 10/30/19 Recorded pneumococcal 13-valent vaccine 08/16/17 Recorded influenza, unspecified formulation 08/05/17 Record ed zoster vaccine live 09/20/15 Recorded Not Given Vaccine Date Status Refusal Reason influenza virus vaccine, inactivated 10/13/23 Not Given Patient Refuses influenza virus vaccine, inactivated 09/29/23 Not Given Patient Refuses 1Result Comment: 2023-04-13: [id number] Medications Aspirin Low Dose 81 mg, Daily Start Date: 06/11/25 Status: Ordered Repeat number: 1 B Complex with Vitamin C Gummy oral tablet, chewable 1 tab(s), Chewed, Daily, Refill(s) 0 Start Date: 04/14/25 Status: Ordered Repeat number: 1 bacitracin top 500 units/g Oint PACKET Topical, BID, Refill(s) 0 Start Date: 04/18/25 Status: Ordered Repeat number: 1 betamethasone-clotrimazole Top 0.05%-1% Crm 15 gram Refill(s) 0 Start Date: 08/08/24 Status: Ordered Repeat number: 1 cetirizine 10 mg Tab 10 mg = 1 tab(s), Oral, Daily, Refills(s) 0 Start Date: 04/14/25 Status: Ordered Repeat number: 1 clonidine 0.2 mg, Oral, BID, Refills(s) 0, High blood pressure Start Date: 01/09/19 Status: Ordered Repeat number: 1 Farxiga 5 mg, Oral, Daily Start Date: 06/11/25 Status: Ordered Repeat number: 1 Flomax 0.4 mg, Oral, Daily, Refills(s) 0, Urinary discomfort Start Date: 01/09/19 Status: Ordered Repeat number: 1 glimepiride 8 mg, Oral, Daily, Refills(s) 0, High blood sugar Start Date: 01/09/19 Status: Ordered Repeat number: 1 Januvia 100 mg, Oral, Daily, Refill(s) 0, High blood sugar Start Date: 01/09/19 Status: Ordered Repeat number: 1 Jardiance 10 mg oral tablet 25 mg, Oral, qAM, Refills(s) 0, Blood glucose Start Date: 03/31/22 Status: Ordered Repeat number: 1 Klor-Con 20 mEq, Oral, Daily, Refills(s) 0, Prophylaxis Start Date: 01/09/19 Status: Ordered Repeat number: 1 labetalol 300 mg Tab 300 mg = 1 tab(s), Refills(s) 0 Start Date: 06/11/25 Status: Ordered Repeat number: 1 loratadine 10 mg, Daily Start Date: 06/11/25 Status: Ordered Repeat number: 1 magnesium oxide 500 mg, Oral, TID, Refills(s) 0, Prophylaxis Start Date: 08/28/20 Status: Ordered Repeat number: 1 Metamucil 525 mg oral capsule 1,050 mg [...] cap(s) Repeat number: 2 Indications: Other constipation; metformin 500 mg Tab 500 mg = 1 tab(s), Oral, TID, Refills(s) 0 Start Date: 08/08/24 Status: Ordered Repeat number: 1 omeprazole 20 mg Cap-DR 20 mg = 1 cap(s) Start Date: 06/11/25 Status: Ordered Repeat number: 1 pioglitazone 30 mg Tab 45 mg, Oral, Daily, Refills(s) 0, Blood glucose Start Date: 08/28/20 Status: Ordered Repeat number: 1 Pred Mild 1 drop(s), Eye-Both, BID, Refill(s) 0, Inflammation Start Date: 01/09/19 Status: Ordered Repeat number: 1 primidone 50 mg Tab 100 mg = 2 tab(s), Oral, BID, # 30 tab(s), Refills(s) 0, Seizure Start Date: 01/09/19 Status: Ordered Quantity: 30.0 Unit: tab(s) Repeat number: 1 Spiriva Respimat 1.25 mcg/inh inhalation aerosol 2 puff(s), Inhalation, Daily, Refill(s) 0, COPD Start Date: 01/09/19 Status: Ordered Repeat number: 1 spironolactone 25 mg Tab 25 mg = 1 tab(s), Oral, Daily, Refills(s) 0 Start Date: 04/14/25 Status: Ordered Repeat number: 1 Symbicort 80-4.5 mcg/actuation, Inhalation, BID, Refill(s) 0, COPD Start Date: 01/09/19 Status: Ordered Repeat number: 1 Tradjenta 5 mg, Oral, Daily Start Date: 06/11/25 Status: Ordered Repeat number: 1 Vitamin D3 2000 intl units 2,000 unit(s), Oral, Daily, Refills(s) 0 Start Date: 04/14/25 Status: Ordered Repeat number: 1 Xarelto 15 mg oral tablet 15 mg = 1 tab(s), Oral, qPM, Refills(s) 0 Start Date: 04/14/25 Status: Ordered Repeat number: 1 Zetia 10 mg, Oral, Daily, Refills(s) 0, High cholesterol Start Date: 01/09/19 Status: Ordered Repeat number: 1 Problem List Condition Confirmation Course Effective Dates Status H ealth Status Informant Gas pain Confirmed Active Acquired buried penis Confirmed Active Asthma Confirmed Active Balanitis Confirmed Active BPH with urinary obstruction Confirmed Active Chronic constipation with overflow Confirmed Active Constipation Confirmed Active Diabetes Confirmed Active Diverticulosis Confirmed Active Anticoagulated Confirmed Active Family history of colon cancer Confirmed Active Abdominal cramping Confirmed Active Gross hematuria Confirmed Active Hemorrhoids Confirmed Active History of colon polyps Confirmed Active Incomplete bladder emptying Confirmed Active Loose stools Confirmed Resolved Nausea Confirmed Active OAB (overactive bladder) Confirmed Active Colon polyps Confirmed Active Post-void dribbling Confirmed Active Fecal urgency Confirmed Active Procedures Procedure Date Related Diagnosis Body Site Status Colonoscopy 1 05/11/22 Completed Cardioversion 01/11/17 Completed Back surgery Completed Cholecystectomy Completed Colonoscopy Completed History of hernia repair Completed Tonsillectomy Completed 12 polyps, diveticulosis, IH Social History Social History Type Response Smoking Status Never; Type: Cigaret keysha entered on: 06/11/25 Sex Male Sex Representation Male (finding) Patient Care team information Care Team Personnel Name: Pj Sung MD Position: FT Physician Member Role: Primary Care Physician Address: [address] [place] [address] Telecom: Care Team Related Persons Name: JOSE VANEGAS Name: JOSE VANEGAS Name: GERARDO HEREDIA Name: GERARDO HEREDIA Name: SUKUMARHAILEE GERARDO Cara Insurance Providers Guarantor name: NADIR [place] YAN Health Plan Information #: 1 Payer: NA Payer Identifier: [id number] Member Number: [id number] Group Number: [id number] Subscriber Identifier: [id number] Relationship to Subscriber: Self Coverage Type: MEDICARE Coverage Verification Date: 25 Telecom: NA Address: NA Health Plan Information #: 2 Payer: NA Payer Identifier: [id number] Member Number: [id number] Group Number: [id number] Subscriber Identifier: [id number] Relationship to Subscriber: Self Coverage Type: PRIVATE HEALTH INSURANCE Coverage Verification Date: 25 Telecom: NA Address:
--- OUTSIDE RECORDS SUMMARY | 2025-06-14 07:30 | XMS_ITS | Encounter Summary ---
Author Organization [facility] Address [address] [place] [address] Care Team Providers Care Patternmaker Apprentice Metal Name Role Phone Pj Sung MD Primary Care Provider [phone] Pj Sung MD Unavailable Encounter Details Date Type Department Care Team (Late st Contact Info) Description 05/28/2025 Orders Only [facility] [address] [place] [address] Ruy Amanda, SALES COUNSELOR [address] [place] [address] Social History Tobacco Use Types Packs/Day Years Used Date Smoking Tobacco: Former Cigarettes Smokeless Tobacco: Never Alcohol Use Standard Drinks/Week Comments Not Currently 0 (1 standard drink = 0.6 oz pur e alcohol) [facility] Utilities Answer Date Recorded In the past 12 months has e electric, gas, oil, or water company [...] any time in the past 12 [facility], were you homeless or living in a snf (including now)? No 05/10/2025 Hunger Vital Sign [...] Description 06/18/2025 11:30 AM EDT Office Visit [facility] [address] [place] [address] Mike Cisneros MD [address] [facility] [place] [phone] 07/19/2025 3:30 PM EDT Consult [facility] Pulmonary [address] [place] [phone] Yovany Barnett MD [address] [facility] [place] [address] 08/01/2025 3:00 PM EDT Follow-Up [facility] Nephrology Clinic [facility] [place] [address] Jeff Hutton MD [address] [place] [address] documented as of this encounter Procedures Procedure Name Priority Date/Time Associated Diagnosis Comments CBC Routine 05/28/2025 5:03 PM EDT B-TYPE NATRIURETIC PEPTIDE Routine 05/28/2025 5:03 PM EDT documented in this encounter Results * CBC (05/28/2025 5:03 PM EDT) Blood Venous blood specimen / Unknown us Ruy Amanda SALES COUNSELOR LAB BLOOD ORDERABLES Final Resul t * B-type natriuretic peptide (05/28/2025 5:03 PM EDT) Blood Venous blood specimen / Unknown Ruy Amanda SALES COUNSELOR LAB BLOOD ORDERABLES Final Resul t documented in this encounter Visit Diagnoses Not on filedocumented in this encounter Care Teams Patternmaker Apprentice Metal Relationship Specialty Start Date End Date Pj Sung MD [address] [facility] [place] [address] PCP - General Family Medicine 05/10/25 Pj Sung MD [address] [facility] [place] [address] 05/10/25 documented as of this encounter
--- OUTSIDE RECORDS SUMMARY | 2025-06-14 07:31 | XMS_ITS | Clinical Summary ---
Author Organization [facility] Address [address] [facility] [place] [address] Care Team Providers Care Edger Feeder Name Role Phone Pj Sung MD Primary Care Provider [phone] Allergies Active Allergy Reactions Criticality Noted Date [...] titration study Managed by Dr John in [facility] Assessment & Plan (04/10/2025 1:49 PM EDT): Still have only PAPT. Get original PSG.0 Assessment & Plan (08/01/2024 11:49 AM EDT): Get original PSG (only received PAPT). Assessment & Plan (01/11/2024 2:07 PM EST): Get sleep studies for our records - [facility]. Also send to [facility] (though not [...] Description 05/08/2025 2:00 PM EDT Office Visit [facility] [address] [place] [address] Winnie Herron, MATTRESS SPECIALIST Benign essential tremor (Primary Dx); Neurogenic pain; Sequelae of cerebral infarction; Cervical paraspinal muscle spasm; JOSIAH (obstructive sleep apnea); Carotid stenosis, bilateral; Polyneuropathy 05/08/2025 Bamboo flowsheet [facility] [address] [place] [address] Winnie Herron NP 05/08/2025 Travel 04/25/2025 Telephone [facility] [address] [facility] [address] [place] [phone] Mulu Edgar MA 04/12/2025 11:20 AM EDT Office Visit [facility] [address] [facility] [address] [place] [address] Blaise Dc, DPJim Verruca plantaris (Primary Dx); Foot pain, right; Diabetes mellitus due to underlying condition with diabetic polyneuropathy, unspecified whether jail insulin use (HCC); Pain due to onychomycosis of toenails of both feet 04/12/2025 Bamboo flowsheet [facility] [address] [facility] [address] [place] [address] Blaise Dc DPM 04/12/2025 Travel 04/10/2025 12:45 PM EDT Office Visit [facility] [place] [facility] [address] [facility] [address] [place] [phone] Lenin Montoya MD Benign essential tremor (Primary Dx); Neurogenic pain; Sequelae of cerebral infarction; Cervical paraspinal muscle spasm; JOSIAH (obstructive sleep apnea); Carotid stenosis, bilateral 04/10/2025 Bamboo flowsheet [facility] [address] [place] [address] Lenin Montoya MD 04/10/2025 Travel from Last 3 Months Family History [...] EDT Office Visit [facility] [address] [facility] [address] [place] [address] Blaise Dc DPM [address] [facility] [address] [place] [address] 07/10/2025 10:30 AM EDT Office Visit [facility] [address] [place] [address] Lenin Montoya MD [address] [facility] [address] [address] 09/11/2025 1:15 PM EDT Office Visit [facility] [place] [facility] [address] [place] [address] Mercedes Joy MD [address] [place] [address] 10/09/2025 1:45 PM EST Office Visit [facility] [address] [place] [address] Lenin Montoya MD [address] [facility] [address] [address] Health Maintenance Due Date Last Done Comments Influenza Vaccine (#1) 2025 , 08/20/2023, 08/18/2022, Additional history exists Pneumococcal Vaccine: 65+ Years Completed 08/16/2017, 01/28/2015, 01/28/2015 Insurance MEDICARE [facility] Care Teams Edger Feeder Relationship Specialty Start Date End Date Pj Sung MD [address] [place] [phone] PCP - General Family Medicine 12/02/23
--- OUTSIDE RECORDS SUMMARY | 2025-06-14 07:31 | XMS_ITS | Encounter Summary ---
Author Organization [facility] Address [address] [place] [address] Care Team Providers Care Realtime Reporter Name Role Phone Pj Sung MD Primary Care Provider [phone] Pj Sung MD Primary Care Provider [phone] Pj Sung MD Unavailable Encounter Details Date Type Department Care Team (Late st Contact Info) Description 07/17/[address] [phone] Cheyanne Ventura MA Social History [...] Description 06/18/2025 11:30 AM EDT Office Visit [address] [phone] Mike Cisneros MD [address] [place] [phone] 07/19/2025 3:30 PM EDT Consult [facility] Pulmonary [address] [place] [phone] Yovany Barnett MD [address] [facility] [address] [facility] [place] [phone] 08/01/2025 3:00 PM EDT Follow-Up [facility] [address] [place] [phone] Jeff Hutton MD [address] [place], [place] [phone] documented as of this encounter Visit Diagnoses Not on filedocumented in this encounter Care Teams Realtime Reporter Relationship Specialty Start Date End Date Pj Sung MD [address] [place] [address] PCP - General 07/17/22 05/09/25 Pj Sung MD [address] [place] [address] PCP - General Family Medicine 05/10/25 Pj Sung MD [address] [place] [address] 05/10/25 documented as of this encounter
--- OUTSIDE RECORDS SUMMARY | 2025-06-14 07:31 | XMS_ITS | Encounter Summary ---
Author Organization [facility] Address [id number] [address] [place] [address] Care Team Providers Care Straightening Press Operator Name Role Phone Pj Sung MD Primary Care Provider [phone] Encounter Details Date Type Department Care Team (Late st Contact Info) Description 02/15/2025 Orders Only [facility] External Film Storage [facility] [place] [address] Transcribe, Orders Support User Pain [...] pain documented in this encounter Care Teams Straightening Press Operator Relationship Specialty Start Date End Date Pj Sung MD [address] [place] [address] PCP - General Family Medicine 02/14/25 documented as of this encounter
--- OUTSIDE RECORDS SUMMARY | 2025-06-14 07:32 | XMS_ITS | Patient Health Record ---
Author Organization The [facility] in [place] Address [address] [place] [address] Care Team Providers Care Disk Sharpener Name Role Phone Erik Sung Primary Care Provider [phone] Allergies Allergen (clinical drug ingredient) Drug/Non Drug Allergy documented on EMR Reaction Allergy Type Onset Date Status simvastatin Simvastatin elevated liver enzymes Drug Allergy Active Results Component Value Reference Range Notes BNP Reviewed date:04/15/2025 04:42:25 PM Interpretation: Performing Lab: Notes/Report: [facility] , NT Pro B Type Natriuretic Pept 2805.0 <=1800.0 pg/mL RESULTS CALLED TO DR. SUNG Performing Lab: see note ML - [facility] LB ALBUMIN Reviewed date:06/19/2024 07:43:22 PM Interpretation: Performing Lab: Notes/Report: [facility] , Albumin Level 3.4 3.4-5.0 g/dL Performing Lab: see note ML - [facility] LB HEMOGLOBIN Reviewed date:06/19/2024 07:43:22 PM Interpretation: Performing Lab: Notes/Report: [facility] , Hemoglobin 15.3 14.0-18.0 g/dL Performing Lab: see note ML - [facility] LB MAGNESIUM Reviewed date:06/19/2024 07:43:22 PM Interpretation: Performing Lab: Notes/Report: [facility] , Magnesium 2.1 1.8-2.4 mg/dL Performing Lab: see note ML - [facility] LB PHOSPHORUS Reviewed date:06/19/2024 07:43:22 PM Interpretation: Performing Lab: Notes/Report: [facility] , Phosphorus 3.9 2.6-4.7 mg/dL Performing Lab: see note ML - [facility] LB PROF CHEM 8 (BAS METB) Reviewed date:06/19/2024 07:43:22 PM Interpretation: Performing Lab: Notes/Report: [facility] , Sodium 145 136-145 mmol/L Potassium 4.1 3.5-5.1 mmol/L Chloride 107 98-107 mmol/L Carbon Dioxide 29.8 21.0-32.0 mmol/L Anion Gap 12.3 Glucose 226 74-106 mg/dL Blood Urea Nitrogen 32.0 7.0-18.0 mg/dL Creatinine 1.62 0.70-1.30 mg/dL Estimated GFR ( Vira 49 >=60 Estimated GFR (Non- Coleen 41 >=60 BUN Creatinine Ratio 19.8 Calcium 9.2 8.5-10.1 mg/dL Performing Lab: see note ML - [facility] LB CBC AUTO DIFF Reviewed date:08/16/2024 09:49:03 PM Interpretation: Performing Lab: Notes/Report: [facility] , White Blood Count 9.6 4.0-11.0 10 [...] 3/uL Performing Lab: see note ML - [facility] LB LACTATE or LACTIC ACID Reviewed date:08/16/2024 09:49:03 PM Interpretation: Performing Lab: Notes/Report: [facility] , Lactate/Lactic Acid 1.8 0.4-2.0 mmol/L Performing Lab: see note [facility] LB PROF 14(COMP METB) Reviewed date:08/16/2024 09:49:03 PM Interpretation: Performing Lab: Notes/Report: [facility] , Sodium 138 136-145 mmol/L Potassium 4.1 [...] 1.0 Performing Lab: see note ML - [facility] LB Blood Culture 1 Reviewed date:08/21/2024 08:32:56 PM Interpretation: Performing Lab: Notes/Report: [facility] , Blood Culture 1 See Below For Report Blood Culture 1 NG5D NO GROWTH AT 5 DAYS. Performing Lab: see note ML - [facility] LB Blood Culture 2 Reviewed date:08/21/2024 08:32:56 PM Interpretation: Performing Lab: Notes/Report: [facility] , Blood Culture 2 See Below For Report Blood Culture 2 NG5D NO GROWTH AT 5 DAYS. Performing Lab: see note ML - [facility] LB Troponin I High Sensitivity Reviewed date:08/16/2024 09:49:03 PM Interpretation: Performing Lab: Notes/Report: [facility] , Troponin I High Sensitivity 17.0 4.0-76.1 pg/mL CUT-OFF POINTS HAVE BEEN ESTABLISHED BASED ON THE FOURTH UNIVERSAL DEFINITION OF MYOCARDIAL INFARCTION. THE UPPER REFERENCE LIMIT (URL) OF TROPONIN, DEFINED THE 99TH PERCENTILE OF cTnI DISTRIBUTION IN A REFERENCE POPULATION, HAS BEEN CONFIRMED THE DECISION THRESHOLD FOR [place] DIAGNOSIS. 99TH PERCENTILE = 76.2 PG/ML NOTE: HIGH-SENSITIVITY TROPONIN ASSAY IS NOT INTENDED TO BE USED IN ISOLATION BUT SHOULD BE INTERPRETED IN CONJUNCTION WITH OTHER DIAGNOSTIC AND CLINICAL INFORMATION. Performing Lab: see note ML - [facility] LB SARS-CoV-2 Ag* Reviewed date:08/16/2024 09:49:03 PM Interpretation: Performing Lab: Notes/Report: [facility] , SARS-CoV-2 Ag NEGATIVE NEGATIVE This test [...] Performing Lab: see note ML - [facility] LB ECG 12 lead Reviewed date:08/19/2024 09:36:11 PM Interpretation: Performing Lab: Notes/Report: Source Facility: [place] [address] [address] [place] [id number] Electrocardiograph Report Signed Patient: NADIR HEREDIA MR#: [id number] : 1940 Acct:[id number] Age/Sex: 84 / M ADM Date: 08/16/24 Loc: MS 217-[address]: Pj Sung M.D. Ordering Physician: Lotus Ace D.O. 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1940 Requested By: PJ SUNG Order Number: [id number] Reading MD: PJ SUNG Measurements Intervals [place] Rate: 63 P: -38047 ND: -62204 QRS: 4 QRSD: 102 T: 40 QT: 420 QTc: 427 Interpretive Statements 1210 Atrial fibrillation 3333 Anterolateral myocardial infarction, probably old 3433 Septal myocardial infarction, probably old 7300 Indeterminate axis 9150 abnormal ECG Compared to ECG 10/10/2023 06:55:21 Indeterminate axis now present ST (T wave) deviation no longer present Myocardial infarct finding still present Electronically Signed On 08-18-2024 6:48:37 EDT by PJ SUNG Dictated By: Pj Sung M.D. Signed By: 08/18/24 0649 DD/ 09 TD/TT: Forging Roll Operator: [facility] [place] [id number] Electrocardiograph Report Signed Patient: NADIR HEREDIA MR#: [id number] : 1940 Acct:[id number] Age/Sex: 84 / M ADM Date: 08/16/24 Loc: MS 217-[address]: Gama Sung M.D. Ordering Physician: Lotus Ace D.O. 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 Signed By: 08/18/24 0649 DD/ 1 TD/TT: Forging Roll Operator: CT head/brain wo con Reviewed date:08/16/2024 09:49:03 PM Interpretation: Performing Lab: Notes/Report: Source Facility: [place] [address] CT Scan Report Signed Patient: NADIR HEREDIA MR#: [id number] : 1940 Acct:[id number] Age/Sex: 84 / M ADM Date: 08/16/24 Loc: ER Attending Dr: Ordering Physician: Lotus Ace D.O. Date of Service: 08/16/24 Procedure(s): CT head/brain wo con Accession Number(s): [id number] cc: Pj Sung M.D. [place] [address] Patient Name: NADIR HEREDIA MRN: [id number] date: 1940 Sex: M Assigned Patient Location: ER Current Patient Location: ER Accession/Order Number: [id number] Exam Date: 08/16/2024 09:08 Report Date: 08/16/2024 [...] M.D. Signed By: 08/16/24924 DD/ 1 TD/TT: Forging Roll Operator: [place] [address] CT Scan Report Signed Patient: NADIR HEREDIA MR#: [id number] : 1940 Acct:[id number] Age/Sex: 84 / M ADM Date: 08/16/24 Loc: ER Attending Dr: Ordering Physician: Lotus Ace D.O. Date of Service: 08/16/24 Procedure(s): CT head/brain wo con Accession Number(s): [id number] cc: Pj Sung M.D. [facility] [place] [address] Patient Name: NADIR HEREDIA MRN: [id number] date: 1940 Sex: M Assigned Patient Location: ER Current Patient Loca tion: ER Accession/Order Numb er: [id number] Exam Date: 09:08 Report Date: 08/16/2024 09:22 [...] M.D. Signed By: 08/16/24924 DD/ 1 TD/TT: Forging Roll Operator: PROF TARA Faust ([facility]) Reviewed date:09/08/2024 12:39:03 PM Interpretation: Performing Lab: Notes/Report: [facility] , Sodium 139 136-145 mmol/L Potassium 4.8 [...] mg/dL Performing Lab: see note ML - [facility] LB CBC AUTO DIFF Reviewed date:10/30/2024 02:21:51 PM Interpretation: Performing Lab: Notes/Report: [facility] , White Blood Count 14.0 4.0-11.0 10 [...] Performing Lab: see note ML - [facility] LB PROF CHEM 8 (BAS METB) Reviewed date:10/30/2024 02:21:51 PM Interpretation: Performing Lab: Notes/Report: [facility] , Sodium 144 136-145 mmol/L Potassium 4.3 [...] Performing Lab: see note ML - [facility] LB ALBUMIN Reviewed date:12/24/2024 11:26:08 AM Interpretation: Performing Lab: Notes/Report: [facility] , Albumin Level 3.3 3.4-5.0 g/dL Performing Lab: see note ML - [facility] LB HEMOGLOBIN Reviewed date:12/24/2024 11:26:08 AM Interpretation: Performing Lab: Notes/Report: [facility] , Hemoglobin 12.1 14.0-18.0 g/dL Performing Lab: see note ML - [facility] LB MAGNESIUM Reviewed date:12/24/2024 11:26:08 AM Interpretation: Performing Lab: Notes/Report: [facility] , Magnesium 2.2 1.8-2.4 mg/dL Performing Lab: see note ML - [facility] LB PHOSPHORUS Reviewed date:12/24/2024 11:26:08 AM Interpretation: Performing Lab: Notes/Report: [facility] , Phosphorus 3.7 2.6-4.7 mg/dL Performing Lab: see note ML - [facility] LB PROF CHEM 8 (BAS METB) Reviewed date:12/24/2024 11:26:08 AM Interpretation: Performing Lab: Notes/Report: [facility] , Sodium 142 136-145 mmol/L Potassium 4.6 [...] mg/dL Performing Lab: see note ML - [facility] LB White Blood Cells Reviewed [...] 4 See Below For Report Result 4 FIELD ORGANIZER Performing Lab: see note LC - [facility] [...] acceptable for routine Performing Lab: see note - [facility] LB Lower Respiratory Culture Reviewed date:01/25/2025 07:33:24 PM Interpretation: Performing Lab: Notes/Report: [facility] , Lower Respiratory Culture See Below For Report Lower Respiratory Culture WILL FOLLOW Lower Respiratory Culture Routine respiratory shreya Lower Respiratory Culture WILL FOLLOW Lower Respiratory Culture Performed at: [facility] Lower Respiratory Culture WILL FOLLOW Lower Respiratory Culture [address], [place] [id number] Lower Respiratory Culture WILL FOLLOW Lower Respiratory Culture Manager [employer]: Asael Pressley PhD, Phone: [phone] Lower Respiratory Culture WILL FOLLOW Performing Lab: see note LC - [facility] LB SEE REPORT - Pourer Metal Id information not found for OBX-specific multimedia producer legend PROF 14(COMP METB) Reviewed date:02/14/2025 07:52:08 PM Interpretation: Performing Lab: Notes/Report: [facility] , Sodium 139 136-145 mmol/L Potassium 4.3 [...] 1.0 Performing Lab: see note ML - [facility] LB Prothrombin Time INR Reviewed date:02/14/2025 07:52:08 PM Interpretation: Performing Lab: Notes/Report: [facility] , Prothrombin Time 10.7 9.0-11.6 sec INR 1.01 DESIRED INR: 2.0-3.0 CONDITIONS NOT LISTED BELOW 2.5-3.5 FOR PROSTHETIC HEART VALVE REPLACEMENT 2.5-3.5 RECURRENT THROMBOSIS Performing Lab: see note ML - [facility] LB Troponin I High Sensitivity Reviewed date:02/14/2025 07:52:08 PM Interpretation: Performing Lab: Notes/Report: [facility] , Troponin I High Sensitivity 15.2 4.0-76.1 pg/mL CUT-OFF POINTS HAVE BEEN ESTABLISHED BASED ON THE FOURTH UNIVERSAL DEFINITION OF MYOCARDIAL INFARCTION. THE UPPER REFERENCE LIMIT (URL) OF TROPONIN, DEFINED THE 99TH PERCENTILE OF cTnI DISTRIBUTION IN A REFERENCE POPULATION, HAS BEEN CONFIRMED THE DECISION THRESHOLD FOR [place] DIAGNOSIS. 99TH PERCENTILE = 76.2 PG/ML NOTE: HIGH-SENSITIVITY TROPONIN ASSAY IS NOT INTENDED TO BE USED IN ISOLATION BUT SHOULD BE INTERPRETED IN CONJUNCTION WITH OTHER DIAGNOSTIC AND CLINICAL INFORMATION. Performing Lab: see note ML - [facility] MR head/brain wo con Reviewed date:02/14/2025 07:52:09 PM Interpretation: Performing Lab: Notes/Report: Source Facility: [facility] [place] [address] [place] [address] Magnetic Resonance Report Signed Patient: NADIR HEREDIA MR#: [id number] : 1940 Acct:[id number] Age/Sex: 85 / M ADM Date: 02/14/25 Loc: MRI Attending Dr: Pj Sung M.D. Ordering Physician: Pj Sung M.D. Date of Service: 02/14/25 Procedure(s): MR head/brain wo con Accession Number(s): [id number] cc: Pj Sung M.D. [place] [address] Patient Name: NADIR HEREDIA MRN: [facility]:[id number] date: 1940 Sex: M Assigned Patient Location: MRI Current Patient Location: MRI Accession/Order Number: [id number] Exam Date: 02/14/2025 08:47 Report Date: 02/14/2025 09:20 At the request of: PJ SUNG MD Procedure: MR head/brain wo con [...] Radha Wright M.D.02/14/2025 9:20 AM Dictation Location: [place] [address] Electronically authenticated by: [id number] Y Date: 02/14/2025 09:20 Dictated By: Radha Wright M.D. Signed By: 02/14/25921 DD/ 9 TD/TT: Forging Roll Operator: [place] [address] Magnetic Resonance Report Signed Patient: NADIR HEREDIA MR#: [id number] : 1940 Acct:[id number] Age/Sex: 85 / M ADM Date: 02/14/25 Loc: MRI Attending Dr: Gama Sung M.D. Ordering Physician: Pj Sung M.D. Date of Service: 02/14/25 Procedure(s): MR head/brain wo con Accession Number(s): [id number] cc: Pj Sung M.D. [place] [address] Patient Name: NADIR HEREDIA MRN: [id number] date: 1940 Sex: M Assigned Patient Location: MRI Current Patient Loca tion: MRI Accession/Order Numb er: [id number] Exam Date: 02/14/2025 08:47 Report Date: 02/14/2025 09:20 At the request of: PJ SUNG MD Procedure: MR head/b rain wo [...] Radha Wright M.D.02/14/2025 9:20 AM Dictation Location: [place] [address] Electronically authenticated by: [id number] Y Date: 02/14/2025 09:20 Dictated By: Radha Wright M.D. Signed By: 02/14/25 0922 DD/ 9 TD/TT: Forging Roll Operator: [place] echo doppler complete Reviewed date:02/15/2025 05:24:30 PM Interpretation: Performing Lab: Notes/Report: Source Facility: [place] [address] [place] [address] Cardiology Report Signed Patient: NADIR HEREDIA MR#: [id number] : 1940 Acct:[id number] Age/Sex: 85 / M ADM Date: 02/14/25 Loc: MS 203-[address]: Pj Sung M.D. Ordering Physician: Pj Sung M.D. Date of Service: 02/15/25 Procedure(s): KENDALL echo doppler complete Accession Number(s): [id number] cc: Pj Sung M.D. Patient Name: NADIR HEREDIA MR#: [id number] : 1940 Exam Date: 02/15/2025 Ordering Doctor: DR Pj Sung . ECHOCARDIOGRAM REPORT PROCEDURE: CA ECHO [...] Faulkner M.D. Signed By: 02/15/25 163 DD/ 163 TD/TT: Forging Roll Operator: [place] [address] Cardiology Report Signed Patient: NADIR HEREDIA MR#: [id number] : 1940 Acct:[id number] Age/Sex: 85 / M ADM Date: 02/14/25 Loc: MS 203-[address]: Gama Sung M.D. Ordering Physician: Pj Sung M.D. Date of Service: 02/15/25 Procedure(s): CA ech o doppler complete Accession Number(s): [id number] cc: Pj Sung M.D. Patient Name: NADIR HEREDIA MR#: [id number] : 1940 Exam Date: 02/15/2025 Ordering Doctor: DR Pj Sung . ECHOCARDIOGRAM REPORT PROCEDURE: CA ECHO [...] assessed due to heart rhythm. ATRIAL SEPTUM: Agit ated saline contrast does not reveal an intra-cardiac [...] Dictated By: Albaro Faulkner M.D. Signed By: 02/15/251631 DD/ 30 TD/TT: Forging Roll Operator: PROF TARA Faust ([facility]) Reviewed date:04/15/2025 04:42:40 PM Interpretation: Performing Lab: Notes/Report: [facility] , Sodium 144 136-145 mmol/L Potassium 4.5 [...] mg/dL Performing Lab: see note ML - [facility] LB CBC AUTO DIFF Reviewed date:05/09/2025 09:23:04 PM Interpretation: Performing Lab: Notes/Report: [facility] , White Blood Count 8.1 4.0-11.0 10 [...] 3/uL Performing Lab: see note ML - [facility] LB PROF 14(COMP METB) Reviewed date:05/09/2025 09:23:04 PM Interpretation: Performing Lab: Notes/Report: [facility] , Sodium 139 136-145 mmol/L Potassium 4.9 [...] 0.7 Performing Lab: see note ML - [facility] LB Troponin I High Sensitivity Reviewed date:05/09/2025 09:23:04 PM Interpretation: Performing Lab: Notes/Report: [facility] , Troponin I High Sensitivity 17.0 4.0-76.1 pg/mL CUT-OFF POINTS HAVE BEEN ESTABLISHED BASED ON THE FOURTH UNIVERSAL DEFINITION OF MYOCARDIAL INFARCTION. THE UPPER REFERENCE LIMIT (URL) OF TROPONIN, DEFINED THE 99TH PERCENTILE OF cTnI DISTRIBUTION IN A REFERENCE POPULATION, HAS BEEN CONFIRMED THE DECISION THRESHOLD FOR [place] DIAGNOSIS. 99TH PERCENTILE = 76.2 PG/ML NOTE: HIGH-SENSITIVITY TROPONIN ASSAY IS NOT INTENDED TO BE USED IN ISOLATION BUT SHOULD BE INTERPRETED IN CONJUNCTION WITH OTHER DIAGNOSTIC AND CLINICAL INFORMATION. Performing Lab: see note ML - [facility] LB ECG 12 lead Reviewed date:05/09/2025 09:23:04 PM Interpretation: Performing Lab: Notes/Report: Source Facility: [place] [address] Electrocardiograph Report Signed Patient: NADIR HEREDIA MR#: [id number] : 1940 Acct:[id number] Age/Sex: 85 / M ADM Date: 05/08/25 Loc: ER Attending Dr: Ordering Physician: Akhil Dobson M.D. 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 Measurements Intervals [place] Rate: 70 P: -87086 ND: -47343 QRS: 66 QRSD: 94 T: 66 QT: 408 QTc: 429 Interpretive Statements 1210 Atrial fibrillation 3433 Septal myocardial infarction, probably old [address] depression, probably digitalis effect 9150 abnormal ECG Compared to ECG 03/08/2025 09:45:12 Aberrant conduction of supraventricular beat(s) no longer present Myocardial infarct finding still present ST (T wave) deviation still present Electronically Signed On 05-08-2025 22:01:26 EDT by CLARIBEL PUGA M.D. Dictated By: CLARIBEL PUGA Signed By: 05/08/251 DD/ 1840 TD/TT: Forging Roll Operator: [place] [address] Electrocardiograph Report Signed Patient: NADIR HEREDIA MR#: [id number] : 1940 Acct:[id number] Age/Sex: 85 / M ADM Date: 05/08/25 Loc: ER Attending Dr: Ordering Physician: Akhil Dobson M.D. 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 Measurements Intervals [place] Rate: 70 P: -56905 ND: -64116 QRS: 66 QRSD: 94 T: 66 QT: 408 QTc: 429 Interpretive Statements 1210 Atrial fibrillation 3433 Septal myocardi al infarction, probably old [address] depression, probably digitalis effect 9150 abnormal ECG Compared to ECG 03/08/2025 09:45:12 Aberrant conduction of supraventricular beat(s) no longer present Myocardial infarct finding still present ST (T wave) deviatio n still present Electronically Rosenda d On 05-08-2025 22:01:26 EDT by CLARIBEL PUGA M.D. Dictated By: CLARIBEL PUGA Signed By: 05/08/252200 DD/ 1840 TD/TT: Forging Roll Operator: CBC no Diff (Hemogram) Reviewed date:05/09/2025 09:23:04 PM Interpretation: Performing Lab: Notes/Report: [facility] , White Blood Count 10.0 4.0-11.0 10 3/uL Red Blood Count 4.13 4.70-6.10 10 6/uL Hemoglobin 10.7 14.0-18.0 g/dL Hematocrit 34.0 42.0-54.0 % Mean Corpuscular Volume 82.3 80.0-94.0 fL Mean Corpuscular Hemoglobin 25.9 25.9-34.0 pg Mean Corpuscular HGB Conc 31.5 29.9-35.2 g/dL Red Cell Distribution Width 19.0 11.0-15.0 % Platelet Count 314 150-450 10 3/uL Mean Platelet Volume 10.9 9.5-13.5 fL Performing Lab: see note ML - [facility] CA echo limited Reviewed date:05/09/2025 09:23:04 PM Interpretation: Performing Lab: Notes/Report: Source Facility: [place] [address] Cardiology Report Signed Patient: NADIR HEREDIA MR#: [id number] : 1940 Acct:[id number] Age/Sex: 85 / M ADM Date: 05/08/25 Loc: MS 215-[address]: jP Sung M.D. Ordering Physician: Jaden Piedra M.D. Date of Service: 05/09/25 Procedure(s): CA echo limited Accession Number(s): [id number] cc: Jaden Piedra M.D.; Pj Sung M.D. Patient Name: NADIR HEREDIA MR#: [id number] : 1940 Exam Date: 05/09/2025 Ordering Doctor: JADEN PIEDRA ECHOCARDIOGRAM REPORT PROCEDURE: CA ECHO LIMITED INDICATIONS: CHF exacerbation, atrial fibrillation, hypertension, diabetes COMPARISON: None. DESCRIPTION: Limited ECHOCARDIOGRAM Real-time transthoracic echocardiography with 2D and M-mode performed. QUALITY: Technical quality was good. Limited echocardiogram per physician order. LEFT VENTRICLE: Normal chamber size. Severe concentric left ventricular hypertrophy. Estimated left ventricular ejection fraction is 65% LV EF: Normal left ventricular ejection fraction, (>55%). DIASTOLIC: ATRIAL SEPTUM: LEFT ATRIUM: Severe dilatation. RIGHT ATRIUM: Severe dilatation. RIGHT VENTRICLE: Moderate dilatation. Normal systolic function. TRICUSPID VALVE: Normal mobility and thickness. Mild to moderate regurgitation. Severely elevated right-sided pressures. RVSP is 78 mmHg, which is greater than previous echocardiogram done 02/15/25 measuring at 61 mmHg. MITRAL VALVE: Normal mobility and thickness. Mild mitral annular calcification. AORTIC VALVE: Normal trileaflet appearance. Severely calcified aortic valve. Severely diminished mobility. 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 PULMONIC VALVE: Normal thickness and mobility. PERICARDIUM: Moderate pericardial effusion. IVC: IVC is dilated (3.1 cm), does not collapse. PLEURA: CONCLUSION: 1. Severe concentric left ventricular hypertrophy with normal systolic function. LVEF is 65%. 2. Moderately dilated right ventricle with normal systolic function. 3. Severe biatrial dilatation. 4. Mild to moderate tricuspid regurgitation. 5. Heavily calcified aortic valve with severely reduced leaflet mobility. 6. Severely elevated right-sided pressures. RVSP is 78 mmHg. 7. Limited study performed as requested. Adult Echocardiography Procedure Report Left Ventricle LVEDD (3.7 - 5.6 cm): 4.12 cm LVESD (2.2 - 4.0 cm): 2.58 cm LVIVS thickness (0.6 - 1.2 cm): 1.81 cm LVPW thickness (0.5 - 1.0 cm): 1.58 cm LVOT Diameter 2.24 cm Left Ventricular Ejection Fraction: 65 % Left Atrium LA Volume Index (2D A2C): 132.73 ml/m2 Left Atrium Systolic Dimension: 6.27 cm Mitral Valve Right Ventricle Aorta AO Root Diam: 4.18 cm Aortic Valve Tricuspid Valve Peak Velocity (Regurgitant Flow): 3.80 m/s, 4.26 m/s, 4.05 m/s, 3.79 m/s Pulmonic Valve Right Atrium Right Atrium Systolic Pressure: 132.84 ml, 132.84 ml Dictated by: Claribel Puga M.D. on 05/09/2025 at 19:15 Approved by: Claribel Puga M.D. on 05/09/2025 at 19:20 Dictated By: CLARIBEL PUGA Signed By: 05/09/251920 DD/ 19 TD/TT: Forging Roll Operator: [place] [address] Cardiology Report Signed Patient: NADIR HEREDIA MR#: [id number] : 1940 Acct:[id number] Age/Sex: 85 / M ADM Date: 05/08/25 Loc: MS 215-[address]: Gama Sung M.D. Ordering Physician: Jaden Piedra M.D. Date of Service: 05/09/25 Procedure(s): CA ech o limited Accession Number(s): [id number] cc: Jaden Piedra M.D; Pj Sung M.D. Patient Name: NADIR HEREDIA MR#: [id number] : 1940 Exam Date: 05/09/2025 Ordering Doctor: DEIDRA PIEDRA ECHOCARDIOGRAM REPORT PROCEDURE: CA ECHO LIMITED INDICATIONS: CHF exacerbation, atrial fibrillation, hypertension, diabetes COMPARISON: None. DESCRIPTION: Limited ECHOCARDIOGRAM Real-time transthoracic echocardiography wit h 2D and M-mode performed. QUALITY: Technical quality was good. Limited echocardiogram per physician order. LEFT VENTRICLE: Norm al chamber size. Severe concentric left ventricular hypertrophy. Estimat ed left ventricular ejection fraction is 65% LV EF: Normal left ventricular ejection fraction, (>55%). DIASTOLIC: ATRIAL SEPTUM: LEFT ATRIUM: Severe dilatation. RIGHT ATRIUM: Severe dilatation. RIGHT VENTRICLE: Mod erate dilatation. Normal systolic function. TRICUSPID VALVE: Nor mal mobility and thickness. Mild to moderate regurgitation. Sever angella elevated right-sided pressures. RVSP is 78 mmHg, which is greater dominga n previous echocardiogram done 02/15/25 measuring at 61 mmHg. MITRAL VALVE: Normal mobility and thickness. Mild mitral annular calcification. AORTIC VALVE: Normal trileaflet appearance. Severely calcified aortic valve. Severely diminished mobility. 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 PULMONIC VALVE: Norm al thickness and mobility. PERICARDIUM: Moderat e pericardial effusion. IVC: IVC is dilated (3.1 cm), does not collapse. PLEURA: CONCLUSION: 1. Severe concentric left ventricular hypertrophy with normal systolic function. LVEF is 65%. 2. Moderately dilate d right ventricle with normal systolic function. 3. Severe biatrial dilatation. 4. Mild to moderate tricuspid regurgitation. 5. Heavily calcified aortic valve with severely reduced leaflet mobility. 6. Severely elevated right-sided pressures. RVSP is 78 mmHg. 7. Limited study performed as requested. Adult Echocardiograp hy Procedure Report Left Ventricle LVEDD (3.7 - 5.6 cm) : 4.12 cm LVESD (2.2 - 4.0 cm) : 2.58 cm LVIVS thickness (0.6 - 1.2 cm): 1.81 cm LVPW thickness (0.5 - 1.0 cm): 1.58 cm LVOT Diameter 2.24 cm Left Ventricular Eje ction Fraction: 65 % Left Atrium LA Volume Index (2D A2C): 132.73 ml/m2 Left Atrium Systolic Dimension: 6.27 cm Mitral Valve Right Ventricle Aorta AO Root Diam: 4.18 cm Aortic Valve Tricuspid Valve Peak Velocity (Regurgitant Flow): 3.80 m/s, 4.26 m/s, 4.05 m/s, 3.79 m/s Pulmonic Valve Right Atrium Right Atrium Systoli c Pressure: 132.84 ml, 132.84 ml Dictated by: Claribel Puga M.D. on 05/09/2025 at 19:15 Approved by: Claribel Puga M.D. on 05/09/2025 at 19:20 Dictated By: CLARIBEL PUGA Signed By: 05/09/251920 DD/ 19 TD/TT: Forging Roll Operator: Troponin I High Sensitivity Reviewed date:05/09/2025 09:23:04 PM Interpretation: Performing Lab: Notes/Report: [facility] , Troponin I High Sensitivity 16.9 4.0-76.1 pg/mL CUT-OFF POINTS HAVE BEEN ESTABLISHED BASED ON THE FOURTH UNIVERSAL DEFINITION OF MYOCARDIAL INFARCTION. THE UPPER REFERENCE LIMIT (URL) OF TROPONIN, DEFINED THE 99TH PERCENTILE OF cTnI DISTRIBUTION IN A REFERENCE POPULATION, HAS BEEN CONFIRMED THE DECISION THRESHOLD FOR [place] DIAGNOSIS. 99TH PERCENTILE = 76.2 PG/ML NOTE: HIGH-SENSITIVITY TROPONIN ASSAY IS NOT INTENDED TO BE USED IN ISOLATION BUT SHOULD BE INTERPRETED IN CONJUNCTION WITH OTHER DIAGNOSTIC AND CLINICAL INFORMATION. Performing Lab: see note ML - [facility] LB PROF CHEM 8 (BAS METB) Reviewed date:05/28/2025 06:07:27 PM Interpretation: Performing Lab: Notes/Report: [facility] , Sodium 141 136-145 mmol/L Potassium 4.8 3.5-5.1 mmol/L Chloride 103 98-107 mmol/L Carbon Dioxide 23.9 21.0-32.0 mmol/L Anion Gap 18.9 Glucose 156 74-106 mg/dL Blood Urea Nitrogen 32.0 7.0-18.0 mg/dL Creatinine 1.82 0.70-1.30 mg/dL Estimated GFR ( Vira 43 >=60 mL/min/1.73m 2 Estimated GFR (Non- Coleen 35 >=60 mL/min/1.73m 2 BUN Creatinine Ratio 17.6 Calcium 9.1 8.5-10.1 mg/dL Performing Lab: see note ML - [facility] LB PROF CHEM 8 (BAS METB) Reviewed date:05/09/2025 09:23:04 PM Interpretation: Performing Lab: Notes/Report: [facility] , Sodium 143 136-145 mmol/L Potassium 4.0 3.5-5.1 mmol/L Chloride 104 98-107 mmol/L Carbon Dioxide 28.5 21.0-32.0 mmol/L Anion Gap 14.5 Glucose 169 74-106 mg/dL Blood Urea Nitrogen 33.0 7.0-18.0 mg/dL Creatinine 1.77 0.70-1.30 mg/dL Estimated GFR ( Vira 44 >=60 mL/min/1.73m 2 Estimated GFR (Non- Coleen 37 >=60 mL/min/1.73m 2 BUN Creatinine Ratio 18.6 Calcium 9.3 8.5-10.1 mg/dL Performing Lab: see note ML - [facility] LB MAGNESIUM Reviewed date:05/09/2025 09:23:04 PM Interpretation: Performing Lab: Notes/Report: [facility] , Magnesium 2.2 1.8-2.4 mg/dL Performing Lab: see note ML - [facility] LB Troponin I High Sensitivity Reviewed date:05/09/2025 09:23:04 PM Interpretation: Performing Lab: Notes/Report: [facility] , Troponin I High Sensitivity 16.4 4.0-76.1 pg/mL CUT-OFF POINTS HAVE BEEN ESTABLISHED BASED ON THE FOURTH UNIVERSAL DEFINITION OF MYOCARDIAL INFARCTION. THE UPPER REFERENCE LIMIT (URL) OF TROPONIN, DEFINED THE 99TH PERCENTILE OF cTnI DISTRIBUTION IN A REFERENCE POPULATION, HAS BEEN CONFIRMED THE DECISION THRESHOLD FOR WA DIAGNOSIS. 99TH PERCENTILE = 76.2 PG/ML NOTE: HIGH-SENSITIVITY TROPONIN ASSAY IS NOT INTENDED TO BE USED IN ISOLATION BUT SHOULD BE INTERPRETED IN CONJUNCTION WITH OTHER DIAGNOSTIC AND CLINICAL INFORMATION. Performing Lab: see note ML - [facility] LB CBC AUTO DIFF Reviewed date:05/09/2025 09:23:04 PM Interpretation: Performing Lab: Notes/Report: [facility] , White Blood Count 9.0 4.0-11.0 [...] Performing Lab: see note ML - [facility] LB UA (CLEAN or CATCH) FERRYBOAT CAPTAIN or M ICRO IF IND. Reviewed date:05/09/2025 09:23:04 PM Interpretation: Performing Lab: Notes/Report: [facility] , Color Urine LT. YELLOW YELLOW Clarity Urine CLEAR CLEAR Specific [place] Urine <=1.005 1.005-1.025 pH Urine 6.0 5.0-9.0 Protein Urine NEGATIVE NEG/TRACE mg/dL Glucose Urine UA >=1000 NEGATIVE mg/dL Bilirubin Urine NEGATIVE NEGATIVE Ketones Urine NEGATIVE NEGATIVE mg/dL Blood Urine NEGATIVE NEGATIVE Nitrite Urine NEGATIVE NEGATIVE Urobilinogen Urine 0.2 0.2-1.0 EU/dL Leukocyte Esterase Urine NEGATIVE NEGATIVE Urine Microscopic Indicated NO Performing Lab: see note ML - [facility] PROF CHEM 8 (BAS METB) Reviewed date:05/09/2025 09:23:04 PM Interpretation: Performing Lab: Notes/Report: [facility] , Sodium 139 136-145 mmol/L Potassium 4.7 [...] mg/dL Performing Lab: see note ML - [facility] BNP Reviewed date:05/09/2025 09:23:04 PM Interpretation: Performing Lab: Notes/Report: [facility] , NT Pro B Type Natriuretic Pept 6214.0 <=1800.0 pg/mL RESULTS CALLED TO DR. NASH CARABALLO at 1926 Performing Lab: see note ML - [facility] Troponin I High Sensitivity Reviewed date:03/08/2025 07:11:26 PM Interpretation: Performing Lab: Notes/Report: [facility] , Troponin I High Sensitivity 13.2 4.0-76.1 pg/mL CUT-OFF POINTS HAVE BEEN ESTABLISHED BASED ON THE FOURTH UNIVERSAL DEFINITION OF MYOCARDIAL INFARCTION. THE UPPER REFERENCE LIMIT (URL) OF TROPONIN, DEFINED THE 99TH PERCENTILE OF cTnI DISTRIBUTION IN A REFERENCE POPULATION, HAS BEEN CONFIRMED THE DECISION THRESHOLD FOR WA DIAGNOSIS. 99TH PERCENTILE = 76.2 PG/ML NOTE: HIGH-SENSITIVITY TROPONIN ASSAY IS NOT INTENDED TO BE USED IN ISOLATION BUT SHOULD BE INTERPRETED IN CONJUNCTION WITH OTHER DIAGNOSTIC AND CLINICAL INFORMATION. Performing Lab: see note ML - [facility] ECG 12 lead Reviewed date:03/08/2025 08:58:48 PM Interpretation: Performing Lab: Notes/Report: Source Facility: [facility] [place] [address] [place] [address] Electrocardiograph Report Signed Patient: NADIR HEREDIA MR#: [id number] : 1940 Acct:[id number] Age/Sex: 85 / M ADM Date: 03/08/25 Loc: ER Attending Dr: Ordering Physician: Akhil Dobson M.D. 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 Measurements Intervals [place] Rate: 70 P: -03075 ND: -32495 QRS: 48 QRSD: 100 T: 26 QT: 414 QTc: 435 Interpretive Statements 12123 Atrial fibrillation with aberrant conduction, or ventricular premature complexes 3113 Cannot rule out anterior myocardial infarction, probably old [address] depression, probably digitalis effect 9150 abnormal ECG Compared to ECG 02/14/2025 10:08:55 Ventricular premature complex(es) now present Aberrant conduction of supraventricular beat(s) now present Electronically Signed On 03-08-2025 20:43:48 EDT by CLARIBEL PUGA M.D. Dictated By: CLARIBEL PUGA Signed By: 03/08/252042 DD/ 0945 TD/TT: Forging Roll Operator: [place] [address] Electrocardiograph Report Signed Patient: NADIR HEREDIA MR#: [id number] : 1940 Acct:[id number] Age/Sex: 85 / M ADM Date: 03/08/25 Loc: ER Attending Dr: Ordering Physician: Akhil Dobson M.D. Date of Service: 03/08/25 Procedure(s): ECG 12 lead Accession Number(s): [id number] cc: [facility] Test Date: 2025-03-08 Pat Name: NADIR HEREDIA Department: 34 Room: - Gender: Male Steam Tank Operator: : 1940 Requ ested By: 1030 Order Number: [id number] Reading MD: CLARIBEL PUGA M.D. Measurements Intervals [place] Rate: 70 P: -47067 ND: -69624 QRS: 48 QRSD: 100 T: 26 QT: 414 QTc: 435 Interpretive Statements 93078 Atrial fibrill ation with aberrant conduction, or ventricular premature complexes 3113 Cannot rule out anterior myocardial infarction, probably old [address] depression, probably digitalis effect 9150 abnormal ECG Compared to ECG 02/14/2025 10:08:55 Ventricular prematur e complex(es) now present Aberrant conduction of supraventricular beat(s) now present Electronically Rosenda d On 03-08-2025 20:43:48 EDT by CLARIBEL PUGA M.D. Dictated By: CLARIBEL PUGA Signed By: 03/08/252042 DD/ 0945 TD/TT: Forging Roll Operator: Troponin I High Sensitivity Reviewed date:03/08/2025 07:11:26 PM Interpretation: Performing Lab: Notes/Report: [facility] , Troponin I High Sensitivity 15.5 4.0-76.1 pg/mL CUT-OFF POINTS HAVE BEEN ESTABLISHED BASED ON THE FOURTH UNIVERSAL DEFINITION OF MYOCARDIAL INFARCTION. THE UPPER REFERENCE LIMIT (URL) OF TROPONIN, DEFINED THE 99TH PERCENTILE OF cTnI DISTRIBUTION IN A REFERENCE POPULATION, HAS BEEN CONFIRMED THE DECISION THRESHOLD FOR WA DIAGNOSIS. 99TH PERCENTILE = 76.2 PG/ML NOTE: HIGH-SENSITIVITY TROPONIN ASSAY IS NOT INTENDED TO BE USED IN ISOLATION BUT SHOULD BE INTERPRETED IN CONJUNCTION WITH OTHER DIAGNOSTIC AND CLINICAL INFORMATION. Performing Lab: see note ML - [facility] LB PROF CHEM 8 (BAS METB) Reviewed date:03/08/2025 07:11:26 PM Interpretation: Performing Lab: Notes/Report: [facility] , Sodium 139 136-145 mmol/L Potassium 4.6 [...] Performing Lab: see note ML - [facility] LB CBC AUTO DIFF Reviewed date:03/08/2025 07:11:26 PM Interpretation: Performing Lab: Notes/Report: [facility] , White Blood Count 7.8 4.0-11.0 10 [...] Performing Lab: see note ML - [facility] LB BNP Reviewed date:03/08/2025 07:11:26 PM Interpretation: Performing Lab: Notes/Report: [facility] , NT Pro B Type Natriuretic Pept 2783.0 <=1800.0 pg/mL RESULTS CALLED TO RAULITO ROBERTO RN Performing Lab: see note - [facility] LB PROF CHEM 8 (BAS METB) Reviewed date:02/18/2025 03:43:48 PM Interpretation: Performing Lab: Notes/Report: [facility] , Sodium 140 136-145 mmol/L Potassium 4.4 [...] 8.5-10.1 mg/dL Performing Lab: see note - [facility] LB CBC AUTO DIFF Reviewed date:02/18/2025 03:43:48 PM Interpretation: Performing Lab: Notes/Report: [facility] , White Blood Count 8.2 4.0-11.0 10 [...] 0.00-0.03 10 3/uL Performing Lab: see note [facility] LB PROF CHEM 8 (CYRUS METB) Reviewed date:02/15/2025 05:24:30 PM Interpretation: Performing Lab: Notes/Report: [facility] , Sodium 141 136-145 mmol/L Potassium [...] 8.5-10.1 mg/dL Performing Lab: see note - [facility] LB CBC AUTO DIFF Reviewed date:02/15/2025 05:24:30 PM Interpretation: Performing Lab: Notes/Report: [facility] , White Blood Count 5.4 4.0-11.0 [...] 3/uL Performing Lab: see note ML - [facility] LB ECG 12 lead Reviewed date:02/14/2025 07:52:08 PM Interpretation: Performing Lab: Notes/Report: Source Facility: [place] [address] [place] [address] Electrocardiograph Report Signed Patient: NADIR HEREDIA MR#: [id number] : 1940 Acct:[id number] Age/Sex: 85 / M ADM Date: 02/14/25 Loc: [place] 203-[address]: Pj Sung M.D. 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 Measurements Intervals [place] Rate: 75 P: -11764 ND: -51161 QRS: -60 QRSD: 100 T: 68 QT: [...] Signed By: 02/14/25 1728 DD/ 1008 TD/TT: Forging Roll Operator: [place] [address] Electrocardiograph Report Signed Patient: NADIR HEREDIA MR#: [id number] : 1940 Acct:[id number] Age/Sex: 85 / M ADM Date: 02/14/25 Loc: MS 203-[address]: Gama Sung M.D. Ordering Physician: Josie Astudillo Date of Service: 02/14/25 Procedure(s): ECG 12 lead Accession Number(s): [id number] cc: [facility] Test Date: 2025-02-14 Pat Name: NADIR HEREDIA Department: 34 Room: - Gender: Male Steam Tank Operator: : 1940 Requ ested By: 1854 Order Number: [id number] Cristina MD: CLARIBEL PUGA M.D. Measurements Intervals [place] Rate: 75 P: -65378 ND: -85851 QRS: -60 QRSD: 100 T: 68 QT: [...] Signed By: 02/14/25 1728 DD/ 1008 TD/TT: Forging Roll Operator: UA (CLEAN or CATCH) FERRYBOAT CAPTAIN or M TABATHAO IF IND. Reviewed date:02/14/2025 07:52:08 PM Interpretation: Performing Lab: Notes/Report: [facility] , Color Urine LT. YELLOW YELLOW Clarity Urine CLEAR CLEAR Specific [place] Urine 1.010 1.005-1.025 pH Urine 7.0 5.0-9.0 Protein Urine NEGATIVE NEG/TRACE mg/dL Glucose Urine UA >=1000 NEGATIVE mg/dL Bilirubin Urine NEGATIVE NEGATIVE Ketones Urine NEGATIVE NEGATIVE mg/dL Blood Urine NEGATIVE NEGATIVE Nitrite Urine NEGATIVE NEGATIVE Urobilinogen Urine 0.2 0.2-1.0 EU/dL Leukocyte Esterase Urine NEGATIVE NEGATIVE Urine Microscopic Indicated NO Performing Lab: see note ML - [facility] LB MAGNESIUM Reviewed date:02/14/2025 07:52:08 PM Interpretation: Performing Lab: Notes/Report: [facility] , Magnesium 2.0 1.8-2.4 mg/dL Performing Lab: see note ML - [facility] LB GLYCOHEMOGLOBIN A1C Reviewed date:02/14/2025 07:52:08 PM Interpretation: Performing Lab: Notes/Report: [facility] , Glycohemoglobin A1C 11.1 4.5-6.2 % ADA RECOMMENDED LIMIT 4.0 - 6.0 ADA THERAPEUTIC TARGET < 7.0 ACTION SUGGESTED > 7.0 Estimated Average Glucose 272 Performing Lab: see note ML - [facility] LB DIRECT LDL Reviewed date:02/14/2025 07:52:08 PM Interpretation: Performing Lab: Notes/Report: [facility] , LDL Cholesterol Direct 120 <100 mg/dl OPTIMAL 100-129 mg/dl NEAR OR ABOVE OPTIMAL 130-159 mg/dl BORDERLINE HIGH 160-189 mg/dl HIGH >190 mg/dl VERY HIGH Performing Lab: see note ML - [facility] LB CBC AUTO DIFF Reviewed date:02/14/2025 07:52:08 PM Interpretation: Performing Lab: Notes/Report: [facility] , White Blood Count 8.1 4.0-11.0 10 [...] 10 3/uL Performing Lab: see note - [facility] BNP Reviewed date:02/14/2025 07:52:08 PM Interpretation: Performing Lab: Notes/Report: [facility] , NT Pro B Type Natriuretic Pept 1616.0 <=1800.0 pg/mL Performing Lab: see note - [facility] LB TSH Reviewed date:01/18/2025 09:02:22 PM Interpretation: Performing Lab: Notes/Report: [facility] , Thyroid Stimulating Hormone 1.472 0.358-3.740 uIU/mL Performing Lab: see note - [facility] LB T4 Reviewed date:01/18/2025 09:02:22 PM Interpretation: Performing Lab: Notes/Report: [facility] , T4 Thyroxine 7.00 4.50-12.10 ug/dL Performing Lab: see note - [facility] LB PROF 14(COMP METB) Reviewed date:01/18/2025 09:02:22 PM Interpretation: Performing Lab: Notes/Report: [facility] , Sodium 142 136-145 mmol/L Potassium 4.5 [...] 1.0 Performing Lab: see note ML - [facility] FREE T3 Reviewed date:01/18/2025 09:02:22 PM Interpretation: Performing Lab: Notes/Report: [facility] , Free T3 2.15 2.18-3.98 pg/mL Performing Lab: see note ML - [facility] LB CBC AUTO DIFF Reviewed date:01/18/2025 09:02:22 PM Interpretation: Performing Lab: Notes/Report: [facility] , White Blood Count 9.0 4.0-11.0 [...] 10 3/uL Performing Lab: see note - [facility] VITAMIN D 25 [place] Reviewed date:12/24/2024 11:26:08 AM Interpretation: Performing Lab: Notes/Report: [facility] , Vitamin D 19.7 <20 ng/mL Vit D deficient 20-<30 ng/mL Vit D insufficient 30-100 ng/mL Vit D sufficient >100 ng/mL Potential Toxicity Performing Lab: see note - [facility] LB URINE T PROTEIN CREAT RATIO Reviewed date:12/24/2024 11:26:08 AM Interpretation: Performing Lab: Notes/Report: [facility] , Total Protein Urine Random 14.3 <=11.9 mg/dL Creatinine Urine Random 52.46 20.00-30 0.00 mg/dL Protein Creatinine Ratio Urine 0.27 Performing Lab: see note [facility] LB PROF CHEM 8 ([facility] METB) Reviewed date:11/11/2024 08:52:42 PM Interpretation: Performing Lab: Notes/Report: [facility] , Sodium 140 136-145 mmol/L Potassium 5.0 [...] 8.5-10.1 mg/dL Performing Lab: see note - [facility] LB PROF CHEM 8 (BAS METB) Reviewed date:10/31/2024 12:23:54 PM Interpretation: Performing Lab: Notes/Report: [facility] , Sodium 140 136-145 mmol/L Potassium 4.6 [...] mg/dL Performing Lab: see note ML - [facility] LB CBC AUTO DIFF Reviewed date:10/31/2024 12:23:54 PM Interpretation: Performing Lab: Notes/Report: [facility] , White Blood Count 11.9 4.0-11.0 [...] 3/uL Performing Lab: see note ML - [facility] LB Type and Screen Reviewed date:10/29/2024 08:20:36 PM Interpretation: Performing Lab: Notes/Report: [facility] , Blood Type A Positive Antibody Screen NEGATIVE CBC no Diff (Hemogram) Reviewed date:10/29/2024 08:20:36 PM Interpretation: Performing Lab: Notes/Report: [facility] , White Blood Count 15.4 4.0-11.0 10 [...] fL Performing Lab: see note ML - [facility] LB PROF CHEM 8 (BAS METB) Reviewed date:10/29/2024 08:20:36 PM Interpretation: Performing Lab: Notes/Report: [facility] , Sodium 142 136-145 mmol/L Potassium 4.6 [...] mg/dL Performing Lab: see note ML - [facility] LB Prothrombin Time INR Reviewed date:10/29/2024 08:20:36 PM Interpretation: Performing Lab: Notes/Report: [facility] , Prothrombin Time 10.5 9.0-11.6 sec INR 0.99 DESIRED INR: 2.0-3.0 CONDITIONS NOT LISTED BELOW 2.5-3.5 FOR PROSTHETIC HEART VALVE REPLACEMENT 2.5-3.5 RECURRENT THROMBOSIS Performing Lab: see note [facility] LB PROF 14(COMP METB) Reviewed date:10/29/2024 08:20:36 PM Interpretation: Performing Lab: Notes/Report: [facility] , Sodium 137 136-145 mmol/L Potassium 4.1 [...] 0.8 Performing Lab: see note ML - [facility] LB CBC AUTO DIFF Reviewed date:10/29/2024 08:20:36 PM Interpretation: Performing Lab: Notes/Report: [facility] , White Blood Count 7.5 4.0-11.0 [...] Performing Lab: see note ML - [facility] LB CA echo doppler complete Reviewed date:10/18/2024 07:39:53 PM Interpretation: Performing Lab: Notes/Report: Source Facility: [facility]-[address] [place] [address] [place] [address] Cardiology Report Signed Patient: NADIR HEREDIA MR#: [id number] : 1940 Acct:[id number] Age/Sex: 84 / M ADM Date: 10/18/24 Loc: CARD Attending Dr: CLARIBEL PUGA Ordering Physician: CLARIBEL PUGA Date of Service: 10/18/24 Procedure(s): CA echo doppler complete Accession Number(s): [id number] cc: Pj Sung M.D.; CLARIBEL PUGA Patient Name: NADIR HEREDIA MR#: [id number] : 1940 Exam Date: 10/18/2024 Ordering Doctor: [...] PUGA Signed By: 10/18/241425 DD/ 24 TD/TT: Forging Roll Operator: [place] [address] Cardiology Report Signed Patient: NADIR HEREDIA MR#: [id number] : 1940 Acct:[id number] Age/Sex: 84 / M ADM Date: 10/18/24 Loc: CARD Attending Dr: CLARIBEL PUGA Ordering Physician: CLARIBEL PUGA Date of Service: 10/18/24 Procedure(s): CA ech o doppler complete Accession Number(s): [id number] cc: Pj Sung M.D. ; CLARIBEL PUGA Patient Name: NADIR HEREDIA MR#: [id number] : 1940 Exam Date: 10/18/2024 Ordering Doctor: [...] Signed By: 10/18/24 1426 DD/ 1425 TD/TT: Forging Roll Operator: JOHNNY miller 1V Reviewed date:09/10/2024 09:12:18 PM Interpretation: Performing Lab: Notes/Report: Source Facility: [place] [address] [place] [address] XRay Report Signed Patient: NADIR HEREDIA MR#: [id number] : 1940 Acct:[id number] Age/Sex: 84 / M ADM Date: 09/08/24 Loc: ER Attending Dr: Ordering Physician: Akhil Dobson M.D. Date of Service: 09/08/24 Procedure(s): XR chest 1V Accession Number(s): [id number] cc: Pj Sung M.D.; Akhil Dobson M.D. [place] [address] Patient Name: NADIR HEREDIA MRN: [id number] date: 1940 Sex: M Assigned Patient Location: ER Current Patient Location: ER Accession/Order Number: [id number] Exam Date: 09/08/2024 12:18 Report Date: 09/08/2024 [...] Signed By: 09/08/24 1303 DD/ 1301 TD/TT: Forging Roll Operator: [place] [address] XRay Report Signed Patient: NADIR HEREDIA MR#: [id number] : 1940 Acct:[id number] Age/Sex: 84 / M ADM Date: 09/08/24 Loc: ER Attending Dr: Ordering Physician: Akhil Dobson M.D. Date of Service: 09/08/24 Procedure(s): XR chest 1V Accession Number(s): [id number] cc: Pj Sung M.D. ; Akhil Dobson M.D. [place] [id number] Patient Name: NADIR HEREDIA MRN: [id number] date: 1940 Sex: M Assigned Patient Location: ER Current Patient Loca tion: ER Accession/Order Numb er: [id number] Exam Date: 12:18 Report Date: 09/08/2024 13:01 [...] Signed By: 09/08/24 1303 DD/ 1301 TD/TT: Forging Roll Operator: CT head/brain wo con Reviewed date:09/10/2024 09:12:17 PM Interpretation: Performing Lab: Notes/Report: Source Facility: [place] [address] CT Scan Report Signed Patient: NADIR HEREDIA MR#: [id number] : 1940 Acct:[id number] Age/Sex: 84 / M ADM Date: 09/08/24 Loc: ER Attending Dr: Ordering Physician: Akhil Dobson M.D. Date of Service: 09/08/24 Procedure(s): CT head/brain wo con Accession Number(s): [id number] cc: Pj Sung M.D. [place] [address] Patient Name: NADIR HEREDIA MRN: [id number] date: 1940 Sex: M Assigned Patient Location: ER Current Patient Location: ER Accession/Order Number: [id number] Exam Date: 09/08/2024 12:45 Report Date: 09/08/2024 [...] parenchyma compared to 08/16/2024. Electronically authenticated by: PAULINE GILL Date: 09/08/2024 13:08 Dictated By: Pauline Gill M.D. Signed By: 09/08/24 1311 DD/ 1308 TD/TT: Forging Roll Operator: The [address] [address] [address] Scan Report Signed Patient: NADIR HEREDIA MR#: [id number] : 1940 Acct:[id number] Age/Sex: 84 / M ADM Date: 09/08/24 Loc: ER Attending Dr: Ordering Physician: Akhil Dobson M.D. Date of Service: 09/08/24 Procedure(s): CT head/brain wo con Accession Number(s): [id number] cc: Pj Sung M.D. [place] [address] Patient Name: NADIR HEREDIA MRN: [id number] date: 1940 Sex: M Assigned Patient Location: ER Current Patient Loca tion: ER Accession/Order Numb er: [id number] Exam Date: 12:45 Report Date: 09/08/2024 13:08 [...] parenchyma compared to 08/16/2024. Electronically authenticated by: PAULINE GILL Date: 09/08/2024 13:08 Dictated By: Pauline iGll M.D. Signed By: 09/08/24 1311 DD/ 1308 TD/TT: Forging Roll Operator: ECG 12 lead Reviewed date:09/13/2024 06:22:56 PM Interpretation: Performing Lab: Notes/Report: Source Facility: [address] [place] [address] [place] [address] Electrocardiograph Report Signed Patient: NADIR HEREDIA MR#: [id number] : 1940 Acct:[id number] Age/Sex: 84 / M ADM Date: 09/08/24 Loc: ER Attending Dr: Ordering Physician: Akhil Dobson M.D. 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 Signed By: 09/12/24 1729 DD/ 1203 TD/TT: Forging Roll Operator: [place] [address] Electrocardiograph Report Signed Patient: NADIR HEREDIA MR#: [id number] : 1940 Acct:[id number] Age/Sex: 84 / M ADM Date: 09/08/24 Loc: ER Attending Dr: Ordering Physician: Akhil Dobson M.D. 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 Signed By: 09/12/24 2259 DD/ 1203 TD/TT: Forging Roll Operator: Troponin I High Sensitivity Reviewed date:09/08/2024 12:39:03 PM Interpretation: Performing Lab: Notes/Report: [facility] , Troponin I High Sensitivity 14.8 4.0-76.1 pg/mL CUT-OFF POINTS HAVE BEEN ESTABLISHED BASED ON THE FOURTH UNIVERSAL DEFINITION OF MYOCARDIAL INFARCTION. THE UPPER REFERENCE LIMIT (URL) OF TROPONIN, DEFINED THE 99TH PERCENTILE OF cTnI DISTRIBUTION IN A REFERENCE POPULATION, HAS BEEN CONFIRMED THE DECISION THRESHOLD FOR WA DIAGNOSIS. 99TH PERCENTILE = 76.2 PG/ML NOTE: HIGH-SENSITIVITY TROPONIN ASSAY IS NOT INTENDED TO BE USED IN ISOLATION BUT SHOULD BE INTERPRETED IN CONJUNCTION WITH OTHER DIAGNOSTIC AND CLINICAL INFORMATION. Performing Lab: see note ML - [facility] LB UA RANDOM W or MICROSCOPIC Reviewed date:09/10/2024 09:12:17 PM Interpretation: Performing Lab: Notes/Report: [facility] , Color Urine LT. YELLOW YELLOW Clarity Urine CLEAR CLEAR Specific [place] Urine 1.010 1.005-1.025 pH Urine 7.0 5.0-9.0 [...] Performing Lab: see note ML - [facility] LB CBC AUTO DIFF Reviewed date:09/08/2024 12:40:56 PM Interpretation: Performing Lab: Notes/Report: [facility] , White Blood Count 7.9 4.0-11.0 [...] 3/uL Performing Lab: see note ML - [facility] LB PROF 14(COMP METB) Reviewed date:08/17/2024 08:52:06 PM Interpretation: Performing Lab: Notes/Report: [facility] , Sodium 139 136-145 mmol/L Potassium 4.4 [...] Performing Lab: see note ML - [facility] LB CBC AUTO DIFF Reviewed date:08/17/2024 08:52:06 PM Interpretation: Performing Lab: Notes/Report: [facility] , White Blood Count 9.3 4.0-11.0 10 [...] Performing Lab: see note ML - [facility] LB XR chest 1V Reviewed date:08/16/2024 09:49:03 PM Interpretation: Performing Lab: Notes/Report: Source Facility: [place] [address] XRay Report Signed Patient: NADIR HEREDIA MR#: [id number] : 1940 Acct:[id number] Age/Sex: 84 / M ADM Date: 08/16/24 Loc: ER Attending Dr: Ordering Physician: Lotus Ace D.O. Date of Service: 08/16/24 Procedure(s): XR chest 1V Accession Number(s): [id number] cc: Pj Sung M.D.; Lotus Ace D.O. [place] [id number] Patient Name: NADIR HEREDIA MRN: [id number] date: 1940 Sex: M Assigned Patient Location: ER Current Patient Location: ER Accession/Order Number: [id number] Exam Date: 08/16/2024 09:10 Report Date: 08/16/2024 [...] M.D. Signed By: 08/16/24933 DD/ 0 TD/TT: Forging Roll Operator: [place] [address] XRay Report Signed Patient: NADIR HEREDIA MR#: [id number] : 1940 Acct:[id number] Age/Sex: 84 / M ADM Date: 08/16/24 Loc: ER Attending Dr: Ordering Physician: Lotus Ace D.O. Date of Service: 08/16/24 Procedure(s): XR chest 1V Accession Number(s): [id number] cc: Pj Sung M.D. ; Lotus Ace D.O. [address] [place] [address] Patient Name: NADIR HEREDIA MRN: [id number] date: 1940 Sex: M Assigned Patient Location: ER Current Patient Loca tion: ER Accession/Order Numb er: [id number] Exam Date: 09:10 Report Date: 08/16/2024 09:31 [...] M.D. Signed By: 08/16/24933 DD/ 0 TD/TT: Forging Roll Operator: Prothrombin Time INR Reviewed date:08/16/2024 09:49:03 PM Interpretation: Performing Lab: Notes/Report: [facility] , Prothrombin Time 10.5 9.0-11.6 sec INR 0.99 DESIRED INR: 2.0-3.0 CONDITIONS NOT LISTED BELOW 2.5-3.5 FOR PROSTHETIC HEART VALVE REPLACEMENT 2.5-3.5 RECURRENT THROMBOSIS Performing Lab: see note ML - [facility] LB UA (CLEAN or CATCH) FERRYBOAT CAPTAIN or M ICRO IF IND. Reviewed date:08/16/2024 09:49:03 PM Interpretation: Performing Lab: Notes/Report: [facility] , Color Urine LT. YELLOW YELLOW Clarity Urine CLEAR CLEAR Specific [place] Urine 1.010 1.005-1.025 pH Urine 7.0 5.0-9.0 Protein Urine NEGATIVE NEG/TRACE mg/dL Glucose Urine UA >=1000 NEGATIVE mg/dL Bilirubin Urine NEGATIVE NEGATIVE Ketones Urine NEGATIVE NEGATIVE mg/dL Blood Urine NEGATIVE NEGATIVE Nitrite Urine NEGATIVE NEGATIVE Urobilinogen Urine 0.2 0.2-1.0 EU/dL Leukocyte Esterase Urine NEGATIVE NEGATIVE Urine Microscopic Indicated NO Performing Lab: see note ML - [facility] LB UA RANDOM W or MICROSCOPIC Reviewed date:08/06/2024 09:17:32 PM Interpretation: Performing Lab: Notes/Report: [facility] , Color Urine LT. YELLOW YELLOW Clarity Urine CLEAR CLEAR Specific [place] Urine 1.010 1.005-1.025 pH Urine 7.0 5.0-9.0 [...] #/LPF Performing Lab: see note ML - [facility] LB PROF CHEM 8 (BAS METB) Reviewed date:08/06/2024 09:17:32 PM Interpretation: Performing Lab: Notes/Report: [facility] , Sodium 138 136-145 mmol/L Potassium 4.0 3.5-5.1 mmol/L Chloride 102 98-107 mmol/L Carbon Dioxide 28.4 21.0-32.0 mmol/L Anion Gap 11.6 Glucose 245 74-106 mg/dL Blood Urea Nitrogen 27.0 7.0-18.0 mg/dL Creatinine 1.56 0.70-1.30 mg/dL Estimated GFR ( Vira 52 >=60 Estimated GFR (Non- Coleen 43 >=60 BUN Creatinine Ratio 17.3 Calcium 9.1 8.5-10.1 mg/dL Performing Lab: see note ML - [facility] LB CBC AUTO DIFF Reviewed date:08/06/2024 09:17:32 PM Interpretation: Performing Lab: Notes/Report: [facility] , White Blood Count 7.9 4.0-11.0 [...] 3/uL Performing Lab: see note ML - [facility] VITAMIN D 25 [place] Reviewed date:06/19/2024 07:43:22 PM Interpretation: Performing Lab: Notes/Report: [facility] , Vitamin D 19.7 <20 ng/mL Vit D deficient 20-<30 ng/mL Vit D insufficient 30-100 ng/mL Vit D sufficient >100 ng/mL Potential Toxicity Performing Lab: see note ML - [facility] URINE T PROTEIN CREAT RATIO Reviewed date:06/19/2024 07:43:22 PM Interpretation: Performing Lab: Notes/Report: [facility] , Total Protein Urine Random 7.8 <=11.9 mg/dL Creatinine Urine Random 53.15 20.00-30 0.00 mg/dL Protein Creatinine Ratio Urine 0.15 Performing Lab: see note ML - [facility] BNP Reviewed date:05/09/2025 09:23:04 PM Interpretation: Performing Lab: Notes/Report: [facility] , NT Pro B Type Natriuretic Pept 6396.0 <=1800.0 pg/mL RESULTS CALLED TO MARIA LUZ CHAPMAN Performing Lab: see note ML - [facility] BNP Reviewed date:01/18/2025 09:02:22 PM Interpretation: Performing Lab: Notes/Report: [facility] , NT Pro B Type Natriuretic Pept 2045.0 <=1800.0 pg/mL RESULTS CALLED TO cynthia valenzuela, chelsi @BY Cecilia Elder at 1158 Performing Lab: see note ML - [facility] LB AMMONIA Reviewed date:01/18/2025 09:02:22 PM Interpretation: Performing Lab: Notes/Report: [facility] , Ammonia <10 11-32 umol/L Performing Lab: see note ML - [facility] LB UA DIP NONAUTO WO MICRO (810 02) - IN OFFICE Reviewed date:01/24/2025 06:29:49 PM Interpretation: Performing Lab: Notes/Report: COLOR yellow CLARITY clear GLUCOSE LARGE BILIRUBIN neg KETONE neg SPECIFIC GRAVITY 1.010 BLOOD TRACE PH 7 PROTEIN TRACE UROBILINOGEN neg NITRITE neg LEUKOCYTE ESTERASE neg CBC AUTO DIFF Reviewed date:05/28/2025 06:07:27 PM Interpretation: Performing Lab: Notes/Report: [facility] , White Blood Count 8.9 4.0-11.0 10 3/uL Red Blood Count 3.69 4.70-6.10 10 6/uL Hemoglobin 9.4 14.0-18.0 g/dL Hematocrit 30.8 42.0-54.0 % Mean Corpuscular Volume 83.5 80.0-94.0 fL Mean Corpuscular Hemoglobin 25.5 25.9-34.0 pg Mean Corpuscular HGB Conc 30.5 29.9-35.2 g/dL Red Cell Distribution Width 19.9 11.0-15.0 % Platelet Count 372 150-450 10 3/uL Mean Platelet Volume 10.8 9.5-13.5 fL Neutrophils Percent Auto 78.5 43.0-75.0 % Lymphocytes Percent Auto 8.1 20.5-60.0 % Monocytes Percent Auto 10.5 1.7-12.0 % Eosinophils Percent Auto 1.9 0.9-7.0 % Basophils Percent Auto 0.7 0.2-2.0 % Immature Granulocytes Pct Auto 0.3 0.0-0.5 % Neutrophils Absolute Auto 7.0 1.4-6.5 10 3/uL Lymphocytes Absolute Auto 0.7 1.2-3.8 10 3/uL Monocytes Absolute Auto 0.9 0.3-0.8 10 3/uL Eosinophils Absolute Auto 0.2 0.0-0.7 10 3/uL Basophils Absolute Auto 0.1 0.0-0.1 10 3/uL Immature Granulocytes Abs Auto 0.03 0.00-0.03 10 3/uL Performing Lab: see note ML - [facility] CT chest wo con Reviewed date:05/27/2025 04:12:29 PM Interpretation: Performing Lab: Notes/Report: Source Facility: [address] [address] [place] [address] CT Scan Report Signed Patient: NADIR HEREDIA MR#: [id number] : 1940 Acct:[id number] Age/Sex: 85 / M ADM Date: 05/25/25 Loc: CT Attending Dr: Pj Sung M.D. Ordering Physician: Pj Sung M.D. Date of Service: 05/25/25 Procedure(s): CT chest wo con Accession Number(s): [id number] cc: Pj Sung M.D. [place] [address] Patient Name: NADIR HEREDIA MRN: [facility]:[id number] date: 1940 Sex: M Assigned Patient Location: CT Current Patient Location: CT Accession/Order Number: [id number] Exam Date: 05/25/2025 19:35 Report Date: 05/25/2025 19:38 At the request of: PJ SUNG MD Procedure: CT chest wo con CT CHEST WITHOUT IV CONTRAST: CLINICAL HISTORY: Pleural Effusion COMPARISON: Chest x-ray 05/08/2025 TECHNIQUE: Spiral images were obtained through the chest without IV contrast. This CT exam was performed using one or more following dose reduction techniques: Automated exposure control, adjustment of the mA and/or kV according to patient size, or use of iterative reconstruction technique. FINDINGS: Mediastinum:Cardiomegaly. Pericardial effusion noted. Prior aortic valvular surgery. Coronary artery disease noted. No bulky mediastinal or hilar adenopathy on this noncontrast examination. . Lungs:Moderate right-sided and mild left-sided pleural effusions. There are consolidative changes notably involving the right lower lobe less so the right middle lobe and left lower lobe likely due to areas of atelectasis and associated volume loss. Minimal parenchymal opacities involving the left lower lobe noted likely chronic finding. Abd: Upper abdominal images demonstrate atrophic left kidney. Soft tissues/Bones: []Multilevel degenerative changes throughout the thoracic spine. CT/CT chest wo con IMPRESSION: Bilateral effusions and areas of atelectasis. Impression dictated by: Carlos Doll M.D. 05/25/2025 7:38 PM Dictation Location: [place] [address] Electronically authenticated by: [id number] Y Date: 05/25/2025 19:38 Dictated By: Carlos Doll M.D. Signed By: 05/25/251940 DD/ 37 TD/TT: Forging Roll Operator: [place] [address] CT Scan Report Signed Patient: NADIR HEREDIA MR#: [id number] : 1940 Acct:[id number] Age/Sex: 85 / M ADM Date: 05/25/25 Loc: CT Attending Dr: Gama Sung M.D. Ordering Physician: Pj Sung M.D. Date of Service: 05/25/25 Procedure(s): CT concepcion st wo con Accession Number(s): [id number] cc: Pj Sung M.D. [place] [id number] Patient Name: NADIR HEREDIA MRN: [id number] date: 1940 Sex: M Assigned Patient Location: CT Current Patient Loca tion: CT Accession/Order Numb er: [id number] Exam Date: 05/25/2025 19:35 Report Date: 05/25/2025 19:38 At the request of: PJ SUNG MD Procedure: CT chest wo con CT CHEST WITHOUT IV CONTRAST: CLINICAL HISTORY: Pl eural Effusion COMPARISON: Chest x- ray 05/08/2025 TECHNIQUE: Spiral im ages were obtained through the chest without IV contrast. This CT exam was performed using one or more following dose reduction techniques: Automate d exposure control, adjustment of the mA and/or kV according to patient size, or use of iterative reconstruction technique. FINDINGS: Mediastinum:Cardiome ulises. Pericardial effusion noted. Prior aortic valvular surgery. Coronary ar russ disease noted. No bulky mediastinal or hilar adenopathy on this noncontrast examination. . Lungs:Moderate right-sided and mild left-sided pleural effusions. There are consolidative change s notably involving the right lower lobe less so the right middle lobe and left lower lobe likely due to areas of atelectasis and associated volume lo ss. Minimal parenchymal opacities involving the left lower lobe noted lik angella chronic finding. Abd: Upper abdominal images demonstrate atrophic left kidney. Soft tissues/Bones: []Multilevel degenerative changes throughout the thoracic spine. C T/CT chest wo con IMPRESSION: Bilateral effusions and areas of atelectasis. Impression dictated by: Carlos Doll M.D. 05/25/2025 7:38 PM Dictation Location: [place] [address] Electronically authenticated by: [id number] Y Date: 05/25/2025 19:38 Dictated By: Melva Doll M.D. Signed By: 05/25/251940 DD/ 37 TD/TT: Forging Roll Operator: BLOOD GASES BTY Reviewed date:08/16/2024 09:49:03 PM Interpretation: Performing Lab: Notes/Report: [facility] , pH ABG 7.451 7.350-7.450 ABG PCO2 38.3 35.0-45.0 mmHg PO2 ABG 72.2 80.0-100.0 mmHg HCO3 ABG 26.7 22.0-26.0 mmol/L Base Excess ABG 2.7 -2.0-2.0 mmol/L Oxygen Saturation ABG 94.8 Prince Test POSITIVE POSITIVE O2 Mode RA Puncture Site LR Performing Lab: see note ML - [facility] LB AMMONIA Reviewed date:08/16/2024 09:49:03 PM Interpretation: Performing Lab: Notes/Report: [facility] , Ammonia <10 11-32 umol/L Performing Lab: see note ML - [facility] LB Reason For Referral No Information Medications Medication SIG (Take, Route, Frequency, Duration) Notes Start Date End Date Status ALPRAZolam 0.25 MG 1 tablet F41.9 Orall y Twice a day 08/15/2024 Active cloNIDine HCl 0.1 MG 2 tablets Orally bi d for 90 days Active Aspirin 81 81 MG 1 tablet Orally Once a day Active Omeprazole 20 MG TAKE 2 CAPSULES BY M OUTH DAILY for 90 Active Jardiance 25 MG 1 [...] e a day for 90 days Active Albuterol Sulfate (2.5 MG/3ML) 0.083% 3 mL as needed Inhalation every 6 hrs Active Ondansetron 4 MG 1 tablet on the tong ue and allow to dissolve Orally Q 6 hours PRN for 3 10/01/2023 Active metFORMIN HCl 500 MG TAKE 1 TABLET BY [facility] EVERY DAY FOR 30 DAYS [...] 4 MG TAKE 2 TABLETS BY MO [facility] EVERY DAY for 90 days Active Escitalopram Oxalate 5 MG TAKE 1 TABLET BY MOUTH EVERY DAY FOR 30 DAYS for 90 Active Ezetimibe 10 MG [facility] for 90 Active Diabetic Shoe - - Daily Acti ve Dicyclomine HCl 10 MG 2 capsules Orally Three times a day for 90 days Active Cetirizine HCl 10 MG 1 tablet Orally Twi ce a day for 30 days Active Xarelto 15 MG 1 tablet with food Orally Once a day for 30 days Active Immunizations Vaccine Route Administration Date Status Comme nts Flu, Fluad (6019-8784) (53343) 65 yrs+, single-dose syringe IM Intramuscular 08/20/2023 Administered Flu, Fluad (39151) 65 yrs and older, single-dose syringe IM [...] Risk Notes Problem Dermatochalasis of both eyelids (97693468671563818 ) Dermatochalasis of both eyelids (374.87) Active confirmed Problem 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 Problem Overweight (484300011) Overweight (E66.3) Active confirmed Problem Generalized anxiety disorder (43599912) Generalized anxiety disorder (F41.1) Active confirmed Problem 55079862 Atherosclerotic heart disease of [place] coronary artery without angina pectoris (I25.10) Active confirmed Problem 64072864 Nonrheumatic aortic (valve) stenosis (I35.0) Active confirmed Problem Aortic valve disorder (1156549) Other nonrheumatic aortic valve disorders (I35.8) Active confirmed Problem 336157221 Acute diastolic (congestive) heart failure (I50.31) Active confirmed Problem Acute combined systolic and diastolic heart failure (679051303735368) 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 confirmed Problem Chronic combined systolic and diastolic heart failure (039759843130595) Chronic combined systolic (congestive) and diastolic (congestive) heart failure (I50.42) Active confirmed Problem 70049045 Polyp of colon (K63.5) Active confirmed Problem Chronic kidney disease stage 3 (disorder) (996892926) Chronic kidney disease, stage 3 (moderate) (N18.3) Active confirmed Problem Balanitis (00860093) Balanitis (N48.1) Active confirmed Problem 97966101 Bradycardia, unspecified (R00.1) Active confirmed Problem Shortness of breath (556571515) Shortness of breath (R06.02) Active confirmed Problem 593877165 Blister (nonthermal), unspecified lower leg, initial encounter (S80.027Q) Active confirmed Problem Atrial fibrillation (87864178) Atrial fibrillation (I48.91) Active confirmed Problem Hyperlipidemia (48079152) Hyperlipidemia (E78.5) Active confirmed Problem Aortic regurgitation (12145406) Aortic regurgitation (I35.1) Active confirmed Problem Congestive heart failure (34116538) CHF (congestive heart failure) (I50.9) Active confirmed Problem Asthma (527988243) Asthma (J45.909) Active conf irmed Problem Cervical radiculopathy (82977841) Cervical radiculopathy (M54.12) Active confirmed Problem Tricuspid regurgitation (844775275) Tricuspid regurgitation (I07.1) Active confirmed Problem Aortic valve disorder (3257121) Aortic stenosis (I35.0) Active confirmed Problem Atrial fibrillation (disorder) (26517066) Afib (I48.91) Active confirmed Problem Hypertension (57151727) HTN (hypertension) (I10) Active confirmed Problem Edema (33212821) Edema (R60.9) Active confirmed Problem DM - Diabetes mellitus (19689840) DM (diabetes mellitus) (E11.9) Active confirmed Problem Depression (188966011) Depression (F32.9) Active confirmed Problem Peripheral neuropathy (279748464) Peripheral neuropathy (G62.9) Active confirmed Problem Vitamin B12 deficiency (786462167) Vitamin B12 deficiency (E53.8) Active confirmed Problem Sleep apnea (04757771) Sleep apnea (G47.30) Active confirmed Problem CVA - Cerebrovascular accident (915286396) CVA (cerebral vascular accident) (I63.9) Active confirmed Problem Osteoarthritis of knee (755909089) Osteoarthritis of knee (M17.9) Active confirmed Problem Congestive heart failure (83032552) Congestive heart failure (I50.9) Active confirmed Problem Migraine (90972471) Migraine (G43.909) Active confirmed Problem Irritable bowel syndrome (43733645) IBS (irritable bowel syndrome) (K58.9) Active confirmed Problem Peptic ulcer (24990634) Peptic ulcer (K27.9) Active confirmed Problem Generalized anxiety disorder (87208138) MERA (generalized anxiety disorder) (F41.1) Active confirmed Problem Diabetes mellitus type 2 (disorder) (67579109) DM2 (diabetes mellitus, type 2) (E11.9) Active confirmed Problem Acute bronchitis (70421043) Acute bronchitis (J20.9) Active confirmed Problem Cervical spondylosis with myelopathy (M47.12) Active confirmed Problem Pulmonary edema (32982215) Pulmonary edema (J81.1) Active confirmed Problem Diverticulitis (78187542) Diverticulitis (K57.92) Active confirmed Problem Diabetic neuropathy (208678897) Diabetic neuropathy (E11.40) Active confirmed Problem Acute systolic heart failure (679201323) Acute systolic heart failure (I50.21) Active confirmed Problem Benign prostatic hyperplasia (254187288) Benign prostatic hyperplasia (N40.0) Active confirmed Problem Dyshidrotic eczema (701163677) Dyshidrotic eczema (L30.1) Active confirmed Problem Iron deficiency anemia (21337858) Anemia, iron deficiency (D50.9) Active confirmed Problem Ventricular hypertrophy (989081935) Ventricular hypertrophy (I51.7) Active confirmed Problem Hemorrhoid (70699213) Hemorrhoid (K64.9) Active confirmed Problem Labyrinthitis (64888521) Labyrinthitis (H83.09) Active confirmed Problem Altered mental status (103997772) Altered mental status (R41.82) Active confirmed Problem Liver mass (815508456) Liver mass (R16.0) Active confirmed Problem Electrolyte imbalance (246569320) Electrolyte imbalance (E87.8) Active confirmed Problem Altered mental status (400117334) Altered mental state (R41.82) Active confirmed Problem Foot callus (176935934) Foot callus (L84) Active confirmed Problem Left lower lobe pneumonia (758271791) Left lower lobe pneumonia (J18.9) Active confirmed Problem Dermatochalasis (442843407) Dermatochalasis (H02.839) Active confirmed Problem Acute diastolic heart failure (904774508) Acute diastolic heart failure (I50.31) Active confirmed Problem 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 Problem Urinary tract obstruction (6465891) Urinary obstruction (N13.9) Active confirmed Problem Cardiomegaly (4525404) Atrial enlargement, left (I51.7) Active confirmed Problem Generalized anxiety disorder (44571365) Anxiety neurosis (F41.1) Active confirmed Problem Tubulovillous adenoma of colon (9539972430) 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) Active confirmed Problem Essential hypertension (41612947) Essential Hypertension (I10) Active confirmed Problem 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 Problem Essential hypertension (29955751) BP (high blood pressure) (I10) Active confirmed Problem History of cardioversion (41785371074744) History of cardioversion (Z98.890) Active confirmed Problem Degenerative disorder of macula (870655046) Macular degeneration, 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) Active confirmed Problem Deep vein thrombosis (DVT) of non-extremity vein, unspecified chronicity (I82.90) Active confirmed Problem Chronic kidney disease stage 2 (053796086) Chronic kidney disease (CKD), stage 2 (mild) (N18.2) Active confirmed Problem Pulmonary hypertension (77627481) Pulmonary hypertension (I27.20) Active confirmed Problem Lump in right breast (14245305780973152 ) Unspecified lump in the right breast, unspecified quadrant (N63.10) Active confirmed Problem Abrasion of skin (82145043) Skin abrasion (T14.8XXA) Active confirmed Problem Liver function tests abnormal (262622363) Liver function test abnormality (R94.5) Active confirmed Problem Type II diabetes mellitus without complication (413418227) Diabetes (E11.9) Active confirmed Problem Myocardial infarct (85528172) Myocardial infarct (I21.9) Active confirmed Problem Resting tremor (22483658) Resting tremor (G25.2) Active confirmed Problem COVID-19 (383983079) COVID-19 (U07.1) Active confirmed Problem 984284675 Chronic kidney disease, stage 3 unspecified (N18.30) Active confirmed Problem Cardiomegaly (9240340) Atrial enlargement, right (I51.7) Active confirmed Problem [id number] Other pericardia l effusion (noninflammatory) (I31.39) Active confirmed Vital Signs Oximetry 90 % 04/06/2025 Blood pressure diastolic 80 mm Hg 04/06/2025 Height 70 in 04/06/2025 Blood pressure systolic 152 mm Hg 04/06/2025 Weight 186.8 lbs 04/06/2025 BMI 26.8 kg/m2 04/06/2025 Encounters Encounter Location Date Provider Diagnosis [facility] [address] [place] [address] 05/30/2025 Erik mohan [facility] [address] [place] [address] 04/23/2025 Erik Sung [facility] [address] [place] [address] 05/08/2025 Erik Sung CHF (congestive hear t failure) I50.9 ; Edema R60.9 ; Chronic kidney disease, stage 3 unspecified N18.30 and Urinary obstruction N13.9 [facility] [address] [place] [address] 05/08[facility] [address] [facility] [place] [address] 05/21/2025 [facility] [address] [place] [address] 05/21/2025 Erik Sung [facility] [address] [place] [address] 05/21/2025 Erik Sung Pleural effusion J90 [facility] [address] [place] [address] 02/13/2025 Erik Sung [facility] [address] [place] [address] 02/16/2025 Erik Sung [facility] [address] [place] [address] 02/22/2025 Erik Sung [facility] [address] [place] [address] 03/16/2025 Erik mohan [facility] [address] [place] [address] 03/16/2025 Erik mohan [facility] [address] [place] [address] 04/10/2025 Erik Sung Atrial fibrillation I48.91 [facility] [address] [place] [address] 12/24/2024 Erik Pineda [facility] [address] [place] [address] 01/17/2025 Erik Sung [facility] [address] [place] [address] 01/18/2025 Erik Sung [facility] [address] [place] [address] 01/18/2025 Erik Sung Atrial fibrillation I48.91 [facility] [address] [place] [address] 01/29/2025 Erik Sung [facility] [address] [place] [address] 02/13/2025 Erik Sung Altered mental statu s R41.82 [facility] [address] [facility] [address] 07/07/2024 Erik Sung [facility] [address] [facility] [place] [address] 08/15/2024 Erik Sung [facility] [address] [place] [address] 08/16/2024 Erik Sung [facility] [address] [place] [address] 08/23/2024 Erik Hoy Atrial fibrillation I48.91 [facility] [address] [facility] [place] [address] 08/25/2024 Erik Hoy Atrial fibrillation I48.91 [facility] [address] [place] [address] 09/25/2024 Erik Sung [facility] [address] [place] [address] 06/16/2024 Erik Sung [facility] [address] [place] [address] 02/22/2025 Erik Hoy Vitamin B12 deficien cy E53.8 ; Hyperlipidemia E78.5 ; Atrial fibrillation I48.91 ; CVA (cerebral vascular accident) I63.9 and Diabetes mellitus E11.9 [facility] [address] [place] [address] 03/14/2025 Erik Hoy Atrial fibrillation I48.91 ; Hyperlipidemia E78.5 and Pulmonary hypertension I27.20 [facility] [address] [place] [address] 04/06/2025 Erik Hoy Atrial fibrillation I48.91 and CHF (congestive heart failure) I50.9 [facility] [address] [place] [address] 08/15/2024 Erik Hoy Benign prostatic hyperplasia N40.0 ; Anxiety neurosis F41.1 ; Essential Hypertension I10 and Resting tremor G25.2 [facility] [place] [address] [place] [address] 08/23/2024 Erik Hoy Atrial fibrillation I48.91 ; Diabetic neuropathy E11.40 ; Essential Hypertension I10 ; Resting tremor G25.2 and Encounter for immunization Z23 [facility] [address] [place] [address] 09/22/2024 Erik Hoy Diabetic neuropathy E11.40 ; Essential Hypertension I10 ; Resting tremor G25.2 and Anxiety neurosis F41.1 [facility] [address] [place] [address] 07/07/2024 Erik Hoy Vitamin B12 deficien cy E53.8 [facility] [address] [place] [address] 08/07/2024 Erik Hoy Vitamin B12 deficien cy E53.8 [facility] [address] [place] [address] 11/17/2024 Erik Hoy Vitamin B12 deficien cy E53.8 [place] [place] [address] 12/18/2024 Erik Hoy Vitamin B12 deficien cy E53.8 [facility] [place] [place] [address] 01/15/2025 Erik Hoy Vitamin B12 deficien cy E53.8 [facility] [address] [place] [address] 03/26/2025 Erik Hoy Vitamin B12 deficien cy E53.8 [facility] [address] [place] [address] 01/18/2025 Erik Hoy Urinary frequency R3 5.0 ; Edema R60.9 ; Essential Hypertension I10 and Diabetes mellitus E11.9 Assessments Encounter Date Diagnosis (ICD Code) Assessment [...] CHF (congestive heart failure) (ICD-10 - I50.9) 07/07/2024 Vitamin B12 deficiency (ICD-10 - E53.8) 08/07/2024 Vitamin B12 deficiency (ICD-10 - E53.8) 08/15/2024 Benign prostatic hyperplasia (ICD-10 - N40.0) 08/15/2024 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) 03/14/2025 Atrial fibrillation (ICD-10 - I48.91) 03/14/2025 Hyperlipidemia (ICD-10 - E78.5) 05/21/2025 Pleural effusion (ICD-10 - J90) 03/14/2025 Pulmonary hypertension (ICD-10 - I27.20) 08/15/2024 [...] DIFF 05/08/2025 MRI Brain w/o Contrast 02/13/2025 CULTURE SPUTUM 07/23/2023 CULTURE SPUTUM 01/18/2025 CULTURE SPUTUM 05/08/2025 RESPIRATORY PANEL PLUS 09/09/2023 SPUTUM GRAM STAIN 01/18/2025 CT CHEST WO CON 05/21/2025 THYROID PANEL (T4/TSH/FREE T3) Free PSA 03/13/2024 CMP (COMP MET LYN) w/eGFR CKD-EPI 2024 Insurance Providers Payer Name Payer Address Payer Phone Subscriber Number Group Number Insured Name Patient Relationship to Insured Coverage Start Date Coverage End Date [place] [address] [place] [address] [id number] Nadir Rodriguez Self - patient is the insured 4 [facility] [address] [place] [address] [id number] PLAN C Nadir Rodriguez Self - patient [...] History Surgery Date(Month/Year) Hiatal Hernia TONSILLECTOMY,UNDER 12YRS CHOLECYSTECTOMY Back surgery Right heart cath 05/11/25 Hospitalization History Reason Date(Month/Year) Mini Stroke 2023 Weakness, Slurred Speech 08/2024 SOB, Swelling in legs 05/2023
--- OUTSIDE RECORDS SUMMARY | 2025-06-14 07:32 | XMS_ITS | Clinical Summary ---
Author Organization [facility] Address [address] [place] [address] Care Team Providers Care Physiotherapist'S Assistant Name Role Phone Pj Sung MD Primary Care Provider [phone] Pj Sung MD Unavailable Allergies Active Allergy Reactions Criticality Noted Date Comments Aminolevulinic Acid Hcl Unknown 05/10/2025 Iodinated Contrast Media 07/17/2022 Iodinated Contrast Media Unknown 05/10/2025 Nitroglycerin 07/17/2022 Nitroglycerin Other 05/10/2025 hypotension Simvastatin Unknown 05/10/2025 Zxzhlzu-Ljj-Gnj Reductase Inhibitors 07/17/2022 Medications aspirin 81 mg [...] the morning. 150 capsule 11 01/03/20 25 Active Additional Information Patient not taking.Reason: Other, [...] mg by mouth in the morning. 04/06/20 25 Active linaGLIPtin (Tradjenta) 5 mg tablet Take [...] by mouth three times daily. Active fluticasone propion-salmeteroL 113 mcg-14 mcg/actuation aero powdr [...] times daily. Active dapagliflozin propanediol (Farxiga) 10 mgIndications:Acut e diastolic congestive heart failure (CMS/HCC) Take 1 tablet (10 mg) by mouth in the morning. 05/18/20 25 025 Active inclisiran (Leqvio) 284 mg/1.5 mL syringeIndications :Mixed hyperlipidemia,Cor onary artery disease, unspecified vessel or lesion type, unspecified whether angina present, unspecified whether nikolski or transplanted heart Inject 1.5 mL (284 mg) under the skin 1 (one) time for 1 dose. Repeat injection in 3 months. Repeat every 6 months after that. 1.5 mL 05/30/20 25 025 empagliflozin (Jardiance) 25 mg Take 25 mg by mouth in the morning. Discontinu ed(Stop Taking at Discharge) hydrALAZINE (Apresoline) 25 mg tabletIndications: Primary hypertension Take 1 tablet (25 mg) by mouth three times daily. 05/17/20 025 Discontinu ed(Stop Taking at Discharge) amoxicillin-pot clavulanate (Augmentin) 875-125 mg tabletIndications: Pleural effusion Take 1 tablet by mouth two times daily for 3 days. 05/17/20 025 Additional Information Patient not taking.Reported on 05/28/2025 [...] COrders from past 72 hours: Case Request Active Directory Architect: Coronary angiography, Right heart cath; Standing Cardiac [...] (06/14/2023 3:05 PM EDT): Recent admit to [facility] for shortness of breath, acute HFpEF [...] Encounters Date Type Department Care Team Description 05/30/2025 Orders Only [facility] [address] [place] [address] Stephanie Carl MA Mixed hyperlipidemia (Primary Dx); Coronary artery disease, unspecified vessel or lesion type, unspecified whether angina present, unspecified whether nikolski or transplanted heart 05/30/2025 Telephone [facility] [address] [place] [phone] Iva Washington MA Appointment 05/28/2025 1:00 PM EDT Office Visit [address] [address] Ruy Amanda, BALWINDER S/P TAVR (transcatheter aortic valve replacement) (Primary Dx); Nonrheumatic aortic valve stenosis; LBBB (left bundle branch block); Chronic heart failure with preserved ejection fraction (CMS/HCC); Paroxysmal atrial fibrillation (CMS/HCC); Stage 3b chronic kidney disease (CMS/HCC); 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; Mixed hyperlipidemia; Benign hypertensive heart disease with heart failure (CMS/HCC) 05/28/2025 Orders Only [facility] [address] [place] [address] Ruy Amanda CNP 05/23/2025 Orders Only [place] [address] [place] [address] Stephanie Carl MA 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 (Primary Dx); S/P TAVR (transcatheter aortic valve replacement) 05/16/2025 Orders Only [facility] Vascular Lab [address] [place] [phone] Catalina Fisher RN Nonrheumatic aortic valve stenosis (Primary Dx); S/P TAVR (transcatheter aortic valve replacement) 05/15/2025 11:00 AM EDT - 05/15/2025 1:30 PM EDT Surgery [facility] Heart [facility] [place] [facility] [address] [place] [address] Mike Cisneros MD TAVR 05/15/2025 9:19 AM EDT - 05/15/2025 11:59 PM EDT Hospital Encounter [facility] Radiology External Films [address] [place] [address] Discharge Disposition: Home or Self Care () 05/15/2025 9:18 AM EDT Hospital Encounter [facility] Radiology External Films [address] [place] [address] Discharge Disposition: Home or Self Care () 05/11/2025 11:30 AM EDT - 05/11/2025 1:30 PM EDT Surgery [facility] Vascular Lab [address] [place] [address] Shamar Nolan MD Coronary angiography 05/10/2025 2:37 AM EDT - 05/17/2025 8:26 PM EDT Hospital Encounter [facility] [address] [place] [address] Gabriela Vargas MD Saad, Hani, MD Moukarbel, [...] Palpitations; Primary hypertension; Pleural effusion Discharge Disposition: [facility] (03) 05/10/2025 Travel 05/07/2025 Telephone [facility] [place] [address] [place] [phone] Stephanie Carl MA 05/04/2025 Telephone [facility] [address] [place] [phone] Ruthie Linda MD 04/30/2025 3:00 PM EDT Office Visit [facility] [address] [place] [address] Mike Cisneros MD Nonrheumatic aortic valve stenosis (Primary Dx); Chronic diastolic congestive heart failure (CMS/HCC); Shortness of breath; Longstanding persistent atrial fibrillation (CMS/HCC); Pericardial effusion; Pulmonary hypertension (CMS/HCC); 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 No 05/10/2025 Hunger Vital Sign [...] Description 06/18/2025 11:30 AM EDT Office Visit [facility] Heart at [facility] [address] [place] [phone] Mike Cisneros MD [address] [facility] Juan [address] [facility] [place] [address] 07/19/2025 3:30 PM EDT Consult [facility] Pulmonary [address] [place] [phone] Yovany Barnett MD [address] [facility] 2 [facility] [place] [address] 08/01/2025 3:00 PM EDT Follow-Up [facility] [address] [place] [phone] Jeff Hutton MD [address] [place], [place] [phone] Health Maintenance Due Date Last Done Comments [...] this topic Medical Devices Implanted Type Area Stake Driver Device Identifier Shelf Expiration Date Model / Serial / Lot Kit,Heart Valve,Sapien3, 26mm - [id number] - [id number] Implanted:Qty: 1 on 05/15/2025 by Mike Cisneros MD at [facility] Prosthetic Valve N/A: Heart [employer] 10/10/2027 [id number] / [id number] / Procedures Procedure Name Priority Date/Time Associated Diagnosis Comments CBC Routine 05/28/2025 5:03 PM EDT B-TYPE NATRIURETIC PEPTIDE Routine 05/28/2025 5:03 PM EDT ECG 12 LEAD UNIT PERFORMED Routine 05/28/2025 [...] AND DIFFERENTIAL Routine 05/10/2025 4:54 AM EDT from Last 3 Months Results * CBC (05/28/2025 5:03 PM EDT) Only the most recent of5 resultswithin the time period is included. Blood Venous blood specimen / Unknown [employer] LAB BLOOD ORDERABLES Final Resul t * B-type natriuretic peptide (05/28/2025 5:03 PM EDT) Only the most recent of2 resultswithin the time period is included. Blood Venous blood specimen / Unknown [employer] LAB BLOOD ORDERABLES Final Resul t * ECG 12 lead unit performed (05/28/2025 1:21 PM EDT) [employer] ECG ORDERABLES Final Result * (ABNORMAL) POCT glucose meter (05/17/2025 4:24 PM EDT) Only the most recent of31 resultswithin the time period is included. [facility] Signature Glucose POC 331(H) 70 - 105 mg/dL 05/17/2025 4:36 PM EDT [facility] ([facility]) Comment:[email or web address] Blood Capillary blood specimen / Unknown 05/17/2025 4:24 PM EDT 05/17/2025 4:36 PM EDT Narrative [facility] ([facility] - 05/17/2025 4:36 PM EDT Waived Testing in the ED is performed under the ED CLIA certificate #[id number]. us Nikolas Gonzalez MD LAB BLOOD ORDERABLES Final Resul t [facility] ([facility]) [address] [place] [address] * (ABNORMAL) CBC auto differential (05/17/2025 8:59 AM EDT) Only the most recent of2 resultswithin the time period is included. Auto WBC 12.14(H) 4.00 - 10.60 10*3/uL 05/17/2025 9:21 AM EDT [facility] ([facility]) RBC 4.06(L) 4.20 - 5.70 10*6/uL 05/17/2025 9:21 AM EDT [facility] ([facility]) Hemoglobin 10.4(L) 13.0 - 17.0 g/dL 05/17/2025 9:21 AM EDT [facility] ([facility]) Hematocrit 34.2(L) 39.0 - 50.0 % 05/17/2025 9:21 AM EDT [facility] ([facility]) MCV 84.2 82.0 - 98.0 fL 05/17/2025 9:21 AM EDT [facility] ([facility]) MCH 25.6(L) 27.0 - 33.0 pg 05/17/2025 9:21 AM EDT [facility] ([facility]) MCHC 30.4(L) 32.0 - 35.0 g/dL 05/17/2025 9:21 AM EDT [facility] ([facility]) RDW 19.8(H) 11.5 - 15.0 % 05/17/2025 9:21 AM EDT [facility] ([facility]) Platelets 256 150 - 400 10*3/uL 05/17/2025 9:21 AM EDT [facility] ([facility]) nRBC % 0.0 0 % 05/17/2025 9:21 AM EDT [facility] ([facility]) Blood Venous blood specimen / Unknown Venipuncture / Unknown 05/17/2025 8:59 AM EDT 05/17/2025 9:12 AM EDT us Nikolas Gonzalez MD LAB BLOOD ORDERABLES Final Resul t [facility] ([facility]) [address] [place] [address] * (ABNORMAL) Manual Differential (05/17/2025 8:59 AM EDT) Immature Granulocytes % 0.6 0.0 - 1.0 % 05/17/2025 11:57 AM EDT [facility] ([facility]) Neutrophils Absolute 9.2(H) 1.6 - 7.6 10*3/uL 05/17/2025 11:57 AM EDT [facility] ([facility]) Lymphocytes Absolute 0.87(L) 1.20 - 4.00 10*3/uL 05/17/2025 11:57 AM EDT [facility] ([facility]) Monocytes Absolute 1.92(H) 0.10 - 1.00 10*3/uL 05/17/2025 11:57 AM EDT [facility] ([facility]) Eosinophils Absolute 0.05 0.00 - 0.50 10*3/uL 05/17/2025 11:57 AM EDT [facility] ([facility]) Basophils Absolute 0.05 0.00 - 0.20 10*3/uL 05/17/2025 11:57 AM EDT [facility] ([facility]) Neutrophils % 75.6(H) 40.0 - 72.0 % 05/17/2025 11:57 AM EDT [facility] ([facility]) Lymphocytes % 7.2(L) 20.0 - 45.0 % 05/17/2025 11:57 AM EDT [facility] ([facility]) Monocytes % 15.8(H) 5.0 - 12.0 % 05/17/2025 11:57 AM EDT [facility] ([facility]) Eosinophils % 0.4 0.0 - 6.0 % 05/17/2025 11:57 AM EDT [facility] ([facility]) Basophils % 0.4 0.0 - 1.0 % 05/17/2025 11:57 AM EDT [facility] ([facility]) Immature Granulocytes Absolute 0.07 0.00 - 0.20 10*3/uL 05/17/2025 11:57 AM EDT [facility] ([facility]) Blood Venous blood specimen / Unknown Venipuncture / Unknown 05/17/2025 8:59 AM EDT 05/17/2025 9:12 AM EDT us Nikolas Gonzalez MD LAB BLOOD ORDERABLES Final Resul t [facility] ([facility]) [address] [place] [address] * (ABNORMAL) Comprehensive metabolic panel (05/17/2025 8:59 AM EDT) Only the most recent of2 resultswithin the time period is included. Sodium 140 136 - 145 mmol/L 05/17/2025 9:44 AM EDT [facility] ([facility]) Potassium 3.9 3.5 - 5.1 mmol/L 05/17/2025 9:44 AM EDT [facility] ([facility]) Chloride 104 98 - 107 mmol/L 05/17/2025 9:44 AM EDT [facility] ([facility]) CO2 25 21 - 31 mmol/L 05/17/2025 9:44 AM EDT [facility] ([facility]) Anion Gap 15 7 - 20 mmol/L 05/17/2025 9:44 AM EDT [facility] ([facility]) BUN 38(H) 7 - 25 mg/dL 05/17/2025 9:44 AM EDT [facility] ([facility]) Creatinine 1.73(H) 0.70 - 1.30 mg/dL 05/17/2025 9:44 AM EDT [facility] ([facility]) BUN/Creatinine Ratio 22.0 07/0 01/2025 9:44 AM EDT [facility] ([facility]) Glucose 239(H) 70 - 100 mg/dL 05/17/2025 9:44 AM EDT [facility] ([facility]) Calcium 8.6 8.6 - 10.3 mg/dL 05/17/2025 9:44 AM EDT [facility] ([facility]) AST 13 13 - 39 U/L 05/17/2025 9:44 AM EDT [facility] ([facility]) ALT (SGPT) <3(L) 7 - 52 U/L 05/17/2025 9:44 AM EDT [facility] ([facility]) Alkaline Phosphatase 68 34 - 104 U/L 05/17/2025 9:44 AM EDT [facility] ([facility]) Total Protein 6.3 6.0 - 8.3 g/dL 05/17/2025 9:44 AM EDT [facility] ([facility]) Albumin 3.4(L) 3.5 - 5.7 g/dL 05/17/2025 9:44 AM EDT [facility] ([facility]) Total Bilirubin 0.5 0.3 - 1.0 mg/dL 05/17/2025 9:44 AM EDT [facility] ([facility]) eGFR 38.0(L) >60.0 mL/min/1. 73m*2 05/17/2025 9:44 AM T [facility] ([facility]) Comment:[facility] s estimated glomerular filtration rate (eGFR) [...] MD LAB BLOOD ORDERABLES Final Resul t [facility] ([facility]) [address] [place] [address] * LIMITED ECHOCARDIOGRAM (TTE) W/ LTD DOPPLER AND COLOR FLOW (05/17/2025 8:23 AM EDT) Anatomical Region Laterality Modality Other 05/17/2025 8:04 AM EDT Narrative 05/17/2025 11:46 AM EDT 1 1 [facility] Heart Station [address] [place] [address] (fax) Echocardiogram-[facility] Name: NADIR HEREDIA Study Date: 05/17/2025 08:04 AM B/P: 115 mmHg/40 mmHg HR: Date of : 1940 Location: [facility] Height: 71 in. Age: 85 year(s) Patient Room: 3184 Weight: 160 lb. Gender: Male Patient Status: InPt BSA: 1.92 m2 Indication: Pericardial Effusion, S/P TAVR procedure;26 mm Barragan Moiz S3 Ultra Resilia valve Examination: Limited [...] unchanged from 05/16/25. Procedure Staff Reading Group: [facility] Business Writer: Albert Bee RDCS Ordering Physician: HILARIO REYNOLDS Procedure Note Geri Delarosa MD - 05/17/2025 1 1 [facility] Heart Station [address] [facility] [place] [address] [phone] (fax) Echocardiogram-[facility] Name: NADIR HEREDIA Study Date: 05/17/2025 08:04 AM B/P: 115 mmHg/40 mmHg HR: Date of : 1940 Location: [facility] Height: 71 in. Age: 85 year(s) Patient Room: 3184 Weight: 160 lb. Gender: Male Patient Status: InPt BSA: 1.92 m2 Indication: Pericardial Effusion, S/P TAVR procedure;26 mm Barragan Moiz S3 Ultra Resilia valve Examination: Limited [...] unchanged from 05/16/25. Procedure Staff Reading Group: [facility] Business Writer: Albert Bee RDCS Ordering Physician: HILARIO REYNOLDS us Hilario Reynolds MD CV ECHO PROCEDURES Final Result * (ABNORMAL) APTT (05/16/2025 3:04 PM EDT) Only the most recent of7 resultswithin the time period is included. aPTT 77.8(H) 25.0 - 35.0 Seconds 05/16/2025 3:56 PM EDT [facility] ([facility]) Comment:Clinical significanc e of the APTT is questionable in the presence of heparin. Blood Venous blood specimen / Unknown Venipuncture / Unknown 05/16/2025 3:04 PM EDT 05/16/2025 3:17 PM EDT Mike Cisneros MD LAB BLOOD ORDERABLES Final R esult [facility] ([facility]) [address] [place] [address] * ECG 12 lead (05/16/2025 11:31 AM EDT) Only the most recent of4 resultswithin the time period is included. Ventricular Rate 85 BPM GE MUSE QRS DURATION 146 ms GE MUSE QT Interval 424 ms GE MUSE QTC CALCULATION(BAZE TT) 504 ms GE MUSE R-[place] -56 degrees GE MUSE T Wave [place] 106 degrees GE MUSE 05/16/2025 11:2 6 [...] J. (57) on 05/16/2025 4:16:44 PM Mike Csineros MD ECG ORDERABLES Final Result GE MUSE * Blood culture, peripheral #2 (05/16/2025 11:08 AM EDT) Only the most recent of2 resultswithin the time period is included. Blood Culture No growth at 5 days DAVE 05/21/2025 12:01 PM EDT [facility] ([facility]) Blood Venous blood specimen / Unknown Venipuncture / Unknown 05/16/2025 11:08 AM EDT 05/16/2025 11:13 AM EDT García Tse MD LAB MICROBIOLOGY - GENERAL ORDE ROSEY Final Result [facility] ([facility]) [address] [place] [address] * XR chest 1 view (05/16/2025 10:37 [...] Narrative 05/16/2025 3:18 PM EDT 1 1 [facility] Heart Station [address] [place] [address] [phone] (fax) Echocardiogram-[facility] Name: NADIR HEREDIA Study Date: 05/16/2025 10:05 AM B/P: 125 mmHg/44 mmHg HR: Date of : 1940 Location: [facility] Height: 71 in. Age: 85 year(s) Patient Room: 3184 Weight: 158 lb. Gender: Male Patient Status: InPt BSA: 1.91 m2 Indication: Aortic Valve Stenosis, S/P TAVR procedure;26 mm Barragan Moiz S3 Ultra Resilia valve Examination: Limited [...] with tamponade physiology. Procedure Staff Reading Group: [facility] Business Writer: Katelyn Martinez RDCS Ordering Physician: Shamar Nolan MD Procedure Note Geri Delarosa MD - 05/16/2025 1 1 [facility] Heart Station [address] [facility] [place] [address] [phone] (fax) Echocardiogram-[facility] Name: NADIR HEREDIA Study Date: 05/16/2025 10:05 AM B/P: 125 mmHg/44 mmHg HR: Date of : 1940 Location: [facility] Height: 71 in. Age: 85 year(s) Patient Room: 3184 Weight: 158 lb. Gender: Male Patient Status: InPt BSA: 1.91 m2 Indication: Aortic Valve Stenosis, S/P TAVR procedure;26 mm Barragan Moiz S3 Ultra Resilia valve Examination: Limited [...] with tamponade physiology. Procedure Staff Reading Group: [facility] Business Writer: Katelyn Martinez RDCS Ordering Physician: Shamar Nolan MD us Shamar Nolan MD CV ECHO PROCEDURES Final Result * (ABNORMAL) Activated clotting time (05/16/2025 5:08 AM EDT) Only the most recent of4 resultswithin the time period is included. Pathologist [facility] Activated Clotting Time 284(H) 82 - 152 s 05/16/2025 5:08 AM EDT [facility] ([facility]) Blood Venous blood specimen / Unknown 05/16/2025 5:08 AM EDT 05/16/2025 5:08 AM EDT us Mike Cisneros MD LAB POINT OF CARE TE ST DOCKED DEVICE UNSOLICITED RESULTS Final Result [facility] ([facility]) [address] [place] [address] * (ABNORMAL) Basic metabolic panel (05/16/2025 3:10 AM EDT) Only the most recent of6 resultswithin the time period is included. [facility] Sodium 140 136 - 145 mmol/L 05/16/2025 3:52 AM EDT [facility] ([facility]) Potassium 4.2 3.5 - 5.1 mmol/L 05/16/2025 3:52 AM EDT [facility] ([facility]) Chloride 103 98 - 107 mmol/L 05/16/2025 3:52 AM EDT [facility] ([facility]) CO2 22 21 - 31 mmol/L 05/16/2025 3:52 AM EDT [facility] ([facility]) BUN 41(H) 7 - 25 mg/dL 05/16/2025 3:52 AM EDT [facility] ([facility]) Creatinine 1.71(H) 0.70 - 1.30 mg/dL 05/16/2025 3:52 AM EDT [facility] ([facility]) Glucose 222(H) 70 - 100 mg/dL 05/16/2025 3:52 AM EDT [facility] ([facility]) Calcium 8.6 8.6 - 10.3 mg/dL 05/16/2025 3:52 AM EDT [facility] ([facility]) Anion Gap 19 7 - 20 mmol/L 05/16/2025 3:52 AM EDT [facility] ([facility]) eGFR 38.5(L) >60.0 mL/min/1. 73m*2 05/16/2025 3:52 AM EDT [facility] ([facility]) Comment:[facility] s estimated glomerular filtration rate (eGFR) [...] BUN/Creatinine Ratio 24.0 12/2024 3:52 AM EDT [facility] ([facility]) Blood Venous blood specimen / Unknown Existing Catheter / Unknown 05/16/2025 3:10 AM EDT 05/16/2025 3:27 AM EDT us Julio Cesar Medina MD LAB BLOOD ORDERABLES Final Resul t [facility] ([facility]) [address] [place] [address] * LIMITED ECHOCARDIOGRAM (TTE) W/ LTD DOPPLER AND COLOR FLOW (05/15/2025 2:34 PM EDT) Anatomical Region Laterality Modality Other 05/15/2025 12:4 6 PM EDT Narrative 05/15/2025 3:05 PM EDT 1 [facility] [address] [place] [address] [phone] (fax) Echocardiogram-[facility] Name: NADIR HEREDIA Study Date: 05/15/2025 12:46 PM B/P: 171 mmHg/100 mmHg HR: 87 bpm Date of : 1940 Location: [facility] Height: 72 in. Age: 85 year(s) [...] effusion is seen. Procedure Staff Reading Group: [facility] Business Writer: SEAN Bailey, RDCS Ordering Physician: PROMISE DE SOUZA Procedure Note Kyleigh Faulkner MD - 05/15/2025 1 1 [facility] Heart Station [address] [place] [address] [phone] (fax) Echocardiogram-[facility] Name: NADIR HEREDIA Study Date: 05/15/2025 12:46 PM B/P: 171 mmHg/100 mmHg HR: 87 bpm Date of : 1940 Location: [facility] Height: 72 in. Age: 85 year(s) [...] effusion is seen. Procedure Staff Reading Group: [facility] Business Writer: SEAN Bailey, RDCS Ordering Physician: PROMISE DE SOUZA Promise De Souza OUTSIDE SALESPERSON CV ECHO PROCEDURES Final Resu lt * [...] aortic valve replacement using a 26 mm Barragan MOIZ 3 Ultra RESILIA valve deployed at nominal volume +2 ml via percutaneous transfemoral access. Aortic root angiography. Placement of a temporary pacemaker wire. Left heart catheterization. Access into the right internal jugular vein, right and left common femoral arteries under ultrasound guidance. Preclosure in the right common femoral artery using two 6-Georgian ProGlide devices. Angio-Seal vascular closure in the left common femoral artery. Placement of SENTINEL cerebral embolic protection device. OPERATORS: Interventional Cardiology Agile Scrum Master: Mike Cisneros MD Cardiac Surgery Agile Scrum Master: Negro Abdullahi MD Lead Project Manager Interventional Cardiology Agile Scrum Master: Shamar Nolan METHODS: Procedure was explained to the patient with risks and benefits. he signed informed consent. he was brought to cath lab tech in a fasting state. The procedure was performed in the cardiac cath lab tech under conscious sedation. The right wrist area was prepped and draped in usual fashion. Access was obtained using ultrasound guidance and micropuncture technique in the right radial artery and a 6-Georgian x 11 cm Hydrophilic sheath was placed. Verapamil was given through the sheath. Both groin areas, and the right neck area were prepped and draped in usual fashion. Ultrasound guidance was used for micropuncture access in the right internal jugular vein and a 6-Georgian x 11 cm introducer sheath was secured in place. Micropuncture technique and ultrasound guidance were used for access in the right common femoral artery and inner cannula angiography was performed followed by upsizing to a 6-Georgian x 11 cm sheath. The same was done for the access in the left common femoral artery. At this time, we proceeded with the preclosure in the right common femoral artery using 2 crossing Perclose devices and the access was then upsized over a wire to a 10-Georgian sheath. A 5-Georgian balloon-tipped pacemaker wire was advanced through the internal jugular vein sheath to the right ventricular apex and adequate capture was confirmed. Heparin was given intravenously and therapeutic ACT confirmed during the rest of the procedure and additional heparin given as needed. Through the left common femoral sheath, an angled 6-Georgian pigtail catheter was then advanced to the ascending aorta and placed in the noncoronary cusp. Aortic root angiography was performed in the coplanar view as determined by prior CT scan measurements. A 6-Georgian IM diagnostic catheter was then advanced through the right radial sheath and then navigated using an 0.035 inch wire to the ascending aorta and this was used to place an exchange length Grandslam 0.014 inch wire. The wire was advanced to the left carotid artery. A [place] device was then prepped using standard techniques and then advanced. The proximal filter was deployed in the innominate artery followed by deployment of the distal filter. The [place] device was then secured in place. The right common femoral access was then upsized using an exchange length Siriaerquist wire [which was placed through a multipurpose catheter] to the 14-Georgian Barragan E-sheath. The sheath was secured in place. A 6-Georgian AL1 diagnostic catheter was advanced via the E-sheath, and using a straight stiff Glidewire, the aortic valve was crossed and the catheter was advanced in the left ventricular cavity, and using an exchange length J-wire, a 6-Georgian angled pigtail catheter was advanced to make sure no entanglement under mitral valve apparatus. The pigtail catheter was then used to place an exchange length Amplatz Extra Stiff wire with a distal curve. Based on the prior CT scan measurements, we proceeded with a Barragan MOIZ 3 Ultra RESILIA 26 mm valve. [...] was exchanged over the wire to a 6-Georgian angled pigtail catheter which was advanced across [...] aortic/ventricular. The pigtail catheters were retracted. The [place] device was recaptured. At this stage, the procedure was concluded. An electrocardiogram was performed showing atrial fibrillation and new LBBB. Therefore, the temporary pacemaker wire was secured in place. The previously placed Perclose sutures were tightened in the right common femoral artery achieving good hemostasis. A 6-Georgian Angioseal device was used for hemostasis in [...] Nonrheumatic aortic valve stenosis [I35.0] us Promise De Souza CNP CV CARDIAC CATH PROCEDURES Fi nal Result * XR transfer of outside films (05/15/2025 9:19 AM EDT) Narrative IMAGING - 05/15/2025 9:19 AM EDT This order has been auto-finalized and does not contain a result. Kodak Perez MD IMG XR PROCEDURES Final Result Performing Organization Address City/[facility]/ZIP Co de Phone Number IMAGING * CT transfer of outside films (05/15/2025 9:18 AM EDT) Narrative IMAGING - 05/15/2025 9:18 AM EDT This order has been auto-finalized and does not contain a result. Kodak Perez MD IMG CT PROCEDURES Final Result Performing Organization Address City/[facility]/ZIP Co de Phone Number IMAGING * Red Top (05/14/2025 10:23 PM EDT) Extra Tube Hold for add-ons. 05/15/2025 12:01 AM EDT [facility] ([facility]) Comment:Auto resulted. Blood Venous blood specimen / Unknown 05/14/2025 10:23 PM EDT 05/14/2025 10:56 PM EDT Julio Cesar Medina MD LAB BLOOD ORDERABLES Final Resul t [facility] ([facility]) [address] [place] [address] * Vascular US carotid artery duplex bilateral [...] color ultrasound and velocity measurement. Procedure Note oTm Gonzalez MD - 05/15/2025 Procedure: The carotid [...] <50% stenosis in left internal carotid artery. us Promise De Souza CNP IMG CV VASCULAR PROCEDURES Fi nal Result * Platelet count (05/14/2025 3:28 PM EDT) Only the most recent of2 resultswithin the time period is included. Platelets 297 150 - 400 10*3/uL 05/14/2025 3:45 PM EDT [facility] ([facility]) Blood Venous blood specimen / Unknown Venipuncture / Unknown 05/14/2025 3:28 PM EDT 05/14/2025 3:37 PM EDT us Ruy Amanda [facility] BLOOD ORDERABLES Final Resul t [facility] ([facility]) [address] [place] [address] * Lavender Top (05/14/2025 3:38 AM EDT) Only the most recent of2 resultswithin the time period is included. Extra Tube Hold for add-ons. 05/14/2025 6:01 AM EDT [facility] ([facility]) Comment:Auto resulted. Blood Venous blood specimen / Unknown Venipuncture / Unknown 05/14/2025 3:38 AM EDT 05/14/2025 4:06 AM EDT us Julio Cesar Medina MD LAB BLOOD ORDERABLES Final Resul t [facility] ([facility]) [address] [place], [place] [id number] * Anti-Xa (Heparin Level) (05/12/2025 9:26 AM EDT) Only the most recent of7 resultswithin the time period is included. Anti-Xa (Heparin) 0.32 0.3 - 0.7 IU/mL 05/12/2025 10:52 AM EDT [facility] ([facility]) Comment:Rivaroxaban and Apix aban will interfere with the anti Xa assay used to monitor UFH and LMWH. Blood Venous blood specimen / Unknown Venipuncture / Unknown 05/12/2025 9:26 AM EDT 05/12/2025 10:21 AM EDT Julio Cesar Medina MD LAB BLOOD ORDERABLES Final Resul t [facility] ([facility]) [address] [place] [address] * CTA Abdomen Pelvis W IV Contrast [...] at L4-5 was mild anterolisthesis. Procedure Note eYnni Stafford MD - 05/14/2025 CTA ABDOMEN PELVIS [...] seen. Electronically signed: Yenni Stafford MD. Promise De [...] 3 cusped view, anterior view, and no WINE BLENDER-CAU view are saved in 3-D volume rendered [...] 3 cusped view, anterior view, and no WINE BLENDER-CAU view are saved in 3-Dvolume rendered images. [...] months ago, renal artery stenosis transferred from [facility] for acute on chronic HFpEF and [...] and a micropuncture access technique a 6 Georgian sheath was placed in the right internal jugular vein. The Garza catheter was advanced under fluoroscopic and hemodynamic monitoring to the right atrium. Pressure obtained of the right atrium, right ventricle, pulmonary artery, pulmonary capillary position. Oxygen saturation drawn for the pulmonary artery and Mary cardiac with a cardiac index were calculated. 1% lidocaine was infiltrated over the left radial artery. A 6-Georgian Terumo Glidesheath slender was placed in left [...] (ABNORMAL) POC Hb02% (05/11/2025 10:41 AM EDT) [facility] LMUXST94% 64.1(A) 90 - 95 % QC Pass/Fail Passed QC LOT # [id number] QC Expiration Date 73,126 SAMPLESITE nl Blood Venous blood specimen / Unknown 05/11/2025 10:41 AM EDT Narrative Ventura Schlutz [place] - 05/14/2025 8:56 AM EDT Oper [id number] us Julio Cesar Medina MD POINT OF CARE TEST ENTER/EDIT OR DERABLES Final Result * Light Blue Top (05/11/2025 4:28 AM EDT) Pathologist [facility] Extra Tube Hold for add-ons. 05/11/2025 6:01 AM EDT [facility] ([facility] Comment:Auto resulted. Blood Venous blood specimen / Unknown 05/11/2025 4:28 AM EDT 05/11/2025 4:32 AM EDT us Julio Cesar Medina MD LAB BLOOD ORDERABLES Final Resul t [facility] ([facility]) [address] [place] [address] * (ABNORMAL) Hemoglobin A1c (05/11/2025 4:27 AM EDT) Pathologist [facility] Hemoglobin A1C 9.3(H) 4.0 - 6.0 % 05/11/2025 1:51 PM EDT [facility] ([facility]) Estimated Average Glucose 220 mg/dL 05/11/2025 1:51 PM EDT [facility] ([facility]) Blood Venous blood specimen / Unknown Venipuncture / Unknown 05/11/2025 4:27 AM EDT 05/11/2025 4:37 AM EDT us Julio Cesar Medina MD LAB BLOOD ORDERABLES Final Resul t Performing Organization Address City/[facility]/ZIP Co de Phone Number [facility] ([facility]) [address] [place] [phone] * Lipid panel (05/11/2025 4:27 AM EDT) Triglycerides 93 <150 mg/dL 05/11/2025 11:01 AM EDT [facility] ([facility]) Comment: TRIGLYCERIDE REFERENCE RANGE: 20 YEARS AND OLDER CARDIOVASCULAR RISK LESS THAN 150 mg/dL LOW RISK 150 TO 199 mg/dL BORDERLINE RISK 200 mg/dL AND GREATER HIGH RISK Cholesterol 187 120 - 200 mg/dL 05/11/2025 11:01 AM EDT [facility] ([facility]) LDL Calculated 99 0 - 160 mg/dL 05/11/2025 11:01 AM EDT [facility] ([facility]) HDL 69 23 - 92 mg/dL 05/11/2025 11:01 AM EDT [facility] ([facility]) Non HDL Cholesterol 118 05/11/2025 11:01 AM EDT [facility] ([facility]) Total VLDL-C 19 0 - 40 mg/dL 05/11/2025 11:01 AM EDT [facility] ([facility]) Cholesterol/HDL Ratio 2.7 mg/dL 05/11/2025 11:01 AM EDT [facility] ([facility]) Blood Venous blood specimen / Unknown Venipuncture / Unknown 05/11/2025 4:27 AM EDT 05/11/2025 4:37 AM EDT Julio Cesar Medina MD LAB BLOOD ORDERABLES Final Resul t [facility] ([facility]) [address] [place] [address] * (ABNORMAL) High Sensitivity Troponin I (05/10/2025 10:51 AM EDT) Only the most recent of3 resultswithin the time period is included. High Sensitivity Troponin I 26(H) <20 ng/L 05/10/2025 11:46 AM EDT [facility] ([facility]) Blood Venous blood specimen / Unknown Venipuncture / Unknown 05/10/2025 10:51 AM EDT 05/10/2025 11:18 AM EDT us Estuardo Reed MD LAB BLOOD ORDERABLES Final Re sult Performing Organization Address City/[facility]/ZIP Co de Phone Number [facility]) [address] [place] [address] * COMPLETE ECHO (TTE) (05/10/2025 9:49 AM EDT) Anatomical Region Laterality Modality Other 05/10/2025 9:19 AM EDT Narrative 05/10/2025 10:24 AM EDT 1 1 [facility] Heart Station [address] [place] [address] [phone] (fax) Echocardiogram-[facility] Name: NADIR CIDELOINA Study Date: 05/10/2025 09:19 AM B/P: 178 mmHg/92 mmHg HR: 104 bpm Date of : 1940 Location: [facility] Height: 72 in. Age: 85 year(s) [...] effusion is seen. Procedure Staff Reading Group: [facility] Business Writer: SEAN Bailey, RDCS Ordering Physician: ESTUARDO REED Procedure Note Geri Delarosa MD - 05/10/2025 1 1 [facility] Heart Station [address] [place] [address] [phone] (fax) Echocardiogram-[facility] Name: NADIR HEREDIA Study Date: 05/10/2025 09:19 AM B/P: 178 mmHg/92 mmHg HR: 104 bpm Date of : 1940 Location: [facility] Height: 72 in. Age: 85 year(s) [...] effusion is seen. Procedure Staff Reading Group: [facility] Business Writer: SEAN Bailey, RDCS Ordering Physician: ESTUARDO REED us Estuardo Reed MD CV ECHO PROCEDURES Final Resu lt * TSH3 Reflex to FT4 (05/10/2025 4:54 AM EDT) TSH 1.34 0.34 - 5.60 mIU/L 05/10/2025 5:49 AM EDT [facility] ([facility]) Blood Venous blood specimen / Unknown Venipuncture / Unknown 05/10/2025 4:54 AM EDT 05/10/2025 5:08 AM EDT us Estuardo Reed MD LAB BLOOD ORDERABLES Final Re sult [facility] ([facility]) [address] [place], [place] [id number] * Magnesium (05/10/2025 4:54 AM EDT) Magnesium 2.0 1.9 - 2.7 mg/dL 05/10/2025 5:49 AM EDT [facility] ([facility]) Blood Venous blood specimen / Unknown Venipuncture / Unknown 05/10/2025 4:54 AM EDT 05/10/2025 5:08 AM EDT us Estuardo Reed MD LAB BLOOD ORDERABLES Final Re sult [facility] [address] [place], [place] [phone] from Last 3 Months Insurance MEDICARE [facility] Advance Directives * Full Code (Latest Code Status on File) Date Activated Date Inactivated Comments 05/10/2025 9:05 AM 05/17/2025 10:26 PM * DNR CC-A Date Activated Date Inactivated Comments 05/10/2025 4:16 AM 05/10/2025 9:05 AM Question Answer Comments Select If Any Apply: No Intubation Care Teams Physiotherapist'S Assistant Relationship Specialty Start Date End Date Pj Sung MD [address] [place] [address] PCP - General Family Medicine 05/10/25 Pj Sung MD [address] [place] [address] 05/10/25
--- OUTSIDE RECORDS SUMMARY | 2025-06-14 07:32 | XMS_ITS | Clinical Summary ---
Author Organization [facility] Address [address] [place] [address] Phone Care Team Providers Care Public Health Advisor Name Role Phone Unavailable Primary Care Provider [...]
--- OUTSIDE RECORDS SUMMARY | 2025-06-14 07:32 | XMS_ITS | Clinical Summary ---
Author Organization [facility] Address [id number] [address] [place] [address] Care Team Providers Care Human Resources Temp Name Role Phone Pj Sung MD Primary Care Provider [phone] Encounters Date Type Department Care Team Description 04/14/2025 7:05 PM EDT - 04/16/2025 7:35 AM EDT Emergency [facility] [address] [place] [phone] Discharge Disposition: Telemedicine Discharge 04/14/2025 5:30 PM EDT Ancillary Procedure [facility] [address] [place] [address] Pain 04/14/2025 5:25 PM EDT Ancillary Procedure [facility] [address] [place] [address] Pain 04/14/2025 5:20 PM EDT Ancillary Procedure [facility] [address] [place] [address] Pain 04/14/2025 5:00 PM EDT Ancillary Procedure [facility] [place] [address] Pain from Last 3 Months Social History [...] 1952 Fall Risk Screening 02/07/2004 COVID-19 Vaccine (2023- 5 season) 2024 08/16/2023, 10/21/2022, 08/26/2021, Additional [...] CONT Routine 04/14/2025 5:00 PM EDT Pain from Last 3 Months Results [...] External IMG CT ORDERABLES Fin al Result from Last [address] [facility] Care Teams Human Resources Temp Relationship Specialty Start Date End Date Pj Sung MD [address] [facility], [place] [address] PCP - General Family Medicine 02/14/25
--- OUTSIDE RECORDS SUMMARY | 2025-06-14 07:32 | XMS_ITS | Clinical Summary ---
Author Organization [facility] Address [address] [place] [address] Care Team Providers Care Sql Tech Name Role Phone Pj Sung MD Primary Care Provider [phone] Allergies Active Allergy Reactions Criticality Noted Date [...] Vaccine (1 - 1-dose 75+ series) 2014 Advance Directive Discussion 11/15/2024 Influenza Vaccine (#1) 2025 Insurance [facility] MEDICARE Care Teams Sql Tech Relationship Specialty Start Date End Date Pj Sung MD PCP - General Family Medicine 08/24/12
--- OUTSIDE RECORDS SUMMARY | 2025-06-14 07:33 | XMS_ITS | CCD ---
Author Organization [facility] Care Team Providers Care Denture Packer Name Role Phone PHYSICIAN, DEFAULT Admitting Unavailable PHYSICIAN, DEFAULT Attending Unavailable VAN YOUSSEF Primary Care Unavailable Van Youssef Primary Care Physician HOY ., DR ARAUJO Primary Care Unavailable HOY ., DR ARAUJO Consulting Unavailable HOY ., DR ARAUJO Attending Unavailable HOY ., DR ARAUJO Admitting Unavailable ZIEBER, DR CLOVER Zimmer Consulting Unavailable THREE AFFILIATED, DR CRAMER Consulting Unavailable HOY ., DR ARAUJO Primary Care Unavailable THREE AFFILIATED, DR CRAMER Attending Unavailable THREE AFFILIATED, DR CRAMER Admitting Unavailable THREE AFFILIATED, DR CRAMER Consulting Unavailable HOY ., DR ARAUJO Primary Care Unavailable THREE AFFILIATED, DR CRAMER Attending Unavailable THREE AFFILIATED, DR CRAMER Admitting Unavailable HOY ., DR ARAUJO Consulting Unavailable HOY ., DR ARAUJO Primary Care Unavailable HOY ., DR ARAUJO Attending Unavailable HOY ., DR ARAUJO Admitting Unavailable THREE AFFILIATED, DR CRAMER Consulting Unavailable HOY ., DR ARAUJO Primary Care Unavailable THREE AFFILIATED, DR CRAMER Attending Unavailable THREE AFFILIATED, DR CRAMER Admitting Unavailable HOY ., DR [...] Unavailable Van Youssef MD Primary Care Provider [phone] Van Youssef MD Primary Care Provider [phone] Van Youssef MD Primary Care Provider [phone] DO KARTIK Ronobir R Admitting Unavailabl e DO KARTIK Ronobir R Attending Unavailthea e Aaron, Clover Consulting Unavailable MD Clover Walker Consulting Unavailable Manchester, Clover Consulting Unavailable Manchester, Clover Consulting Unavailable Manchester, Clover Consulting Unavailable Manchester, Clover Consulting Unavailable Manchester, Clover Consulting Unavailable Manchester, Clover Consulting Unavailable Manchester, Clover Consulting Unavailable [facility] Wound, XXXX Consulting Unavailable [facility] Cardio, XXXX Consulting Unavailable Hanna, Mahmoud Consulting Unavailable MD Rebeca Ferreira Consulting Unavailable Othman, Mahmoud Consulting Unavailable KARTIK, Ronobir R Admitting Unavailable KARTIK Ronobir R Attending Unavailable [facility] Wound, XXXX Consulting Unavailable HOY, VAN M Primary Care Unavailable HOY, VAN M Referring Unavailable HOY, VAN M Primary Care Unavailable HOY, VAN M Referring Unavailable HOY, VAN M Primary Care Unavailable HOY, VAN M Referring Unavailable HOY, VAN M Primary Care Unavailable HOY, VAN M Referring Unavailable HOY, VAN M Primary Care Unavailable HOY, VAN M Primary Care Unavailable BLAISE CHICAS Attending Unavailable BARRIE MONTOYA Attending Unavailable BLAISE CHICAS Attending Unavailable BLAISE CHICAS Attending Unavailable BLAISE CHICAS Attending Unavailable MONY HERRON Attending Unavailable BLAISE CHICAS Attending Unavailable BARRIE MONTOYA Attending Unavailable BLAISE CHICAS Attending Unavailable RODNEY JOY Attending Unavailable BLAISE CHICAS Attending Unavailable BLAISE CHICAS Attending Unavailable ELZBIETA, JERI Referring Unavailable ELZBIETA, JERI Referring Unavailable LAURIE, RUY Referring Unavailable SANAULLAH, EFRAIN Referring Unavailable DE SOUZA, NEDRA Referring Unavailable DE SOUZA, NEDRA Referring Unavailable DE SOUZA, NEDRA Referring Unavailable DE SOUZA, NEDRA Referring Unavailable ABBY, HANI Referring Unavailable HUGHES, AISSATOU Referring Unavailable TADEO, MOHAMAD Referring Unavailable MOUKARBEL, CLARIBEL Admitting Unavailable DEIRDRE, NIKOLAS Attending Unavailable ASSALY, GARCÍA Referring Unavailable HUGHES, AISSATOU Referring Unavailable MOUKARBEL, CLARIBEL Referring Unavailable ERIC, NICOLE Referring Unavailable MOUKARBEL, CLARIBEL Attending Unavailable THREE AFFILIATED, RUTHIE Attending Unavailable AYM, JEFF Attending Unavailable THREE AFFILIATED, RUTHIE Attending Unavailable MOUKARBEL, CLARIBEL Referring Unavailable MOUKARBEL, CLARIBEL Attending Unavailable MOUKARBEL, CLARIBEL Attending Unavailable MOUKARBEL, CLARIBEL Attending Unavailable LAURIE, RUY Attending Unavailable PasteMarc zimmer Attending Unavailable DO Layne VERDUGO Admitting Unavailabl e NKANSAH-AMANKRA, MARQUIS Attending Unavail able NKANSAH-AMANKRA, MARQUIS Attending Unavail able NKANSAH-AMANKRA, MARQUIS Attending Unavail able NKANSAH-AMANKRA, MARQUIS Referring Unavail able NKANSAH-AMANKRA, MARQUIS Attending Unavail able NKANSAH-AMANKRA, MARQUIS Attending Unavail able NKANSAH-AMANKRA, MARQUIS Referring Unavail able Mejia SINGH Attending Unavailable SAMANTHA, Mejia Zimmer Referring Unavailable NKANSAH-AMANKRA, MARQUIS Attending Unavail able Mejia SINGH Attending Unavailable SHARALU MILES Attending Unavailable NKANSAH-AMANKRA, MARQUIS Referring Unavail able NKANSAH-AMANKRA, MARQUIS Attending Unavail able NKANSAH-AMANKRA, MARQUIS Attending Unavail able NKANSAH-AMANKRA, MARQUIS Referring Unavail able NKANSAH-AMANKRA, MARQUIS Admitting Unavail able NKANSAH-AMANKRA, MARQUIS Attending Unavail able NKANSAH-AMANKRA, MARQUIS Referring Unavail able NKANSAH-AMANKRA, MARQUIS Admitting Unavail able Rivas Griggs Attending Unavailable Allergies Allergy Classification Reported Allergen(s) Allergy Type Date of Onset Reaction(s) Facility (20 sources) Aminolevulinic Acid; Translations: [aminolevulinic acid] Drug Allergy 11-04-20 13 Unknown [facility] (1 source) NITRO PATCH; Translations: [NITRO PATCH] Propensity to adverse reactions (disorder) 03-18-20 12 [facility] (20 sources) Contrast media; Translations: [Contrast Dye] Drug allergy Unknown (qualifier value) [facility] (20 sources) Hmg-Coa Reductase Inhibitors (Statins); Translations: [statins] Allergy to substance 08-24-20 23 Unknown [facility] (20 sources) Nitroglycerin; Translations: [nitroglycerin] Drug Allergy 02-23-20 22 Unknown (qualifier value) [facility] (2 sources) black walnut pollen extract; Translations: [TVKMYUD-NHI-TCM REDUCTASE INHIBITORS] Drug Allergy 04-21-20 17 [facility] (1 source) Iodine (And Iodine Containting Drugs) Drug allergy (disorder) 05-28-20 16 [facility] (20 sources) Nitroglycerin Allergy to substance 02-23-20 22 [facility] (20 sources) Iodinated Contrast Media; Translations: [IODINATED CONTRAST MEDIA] Drug Allergy 08-24-20 23 [facility] (14 sources) Simvastatin; Translations: [simvastatin] Drug Allergy 05-10-20 25 elevated liver enzymes [facility] (7 sources) Aminolevulinic Acid; Translations: [aminolevulinic acid] Drug Allergy 11-04-20 13 [facility] (7 sources) Nitroglycerin; Translations: [Nitroglycerin Patch] Drug Allergy [facility] (2 sources) Aminolevulinic Acid; Translations: [AMINOLEVULINIC ACID HCL] Drug Allergy 05-10-20 25 [facility] Medications Current Medications Medication Drug [...] every six hours as needed for pain [place] 325 mg-5 mg oral tablet 1 tab(s), Oral, q6hr, 2 tab(s), Refill(s) 0, Take q6hrs as needed for pain., [facility]/pharmacy #[id number], 185, cm, 10/02/24 11:15:00 EST, [...] blet every 12 (twelve) hours. 04/10/2025 Discontinued Aspirin (20 sources) Platelet Aggregation Inhibitor, Nonsteroidal Anti-inflammatory Drug Start: 06-11-2025 Aspirin Low Dose 81 mg, Daily Start Date: 06/11/25 Status: Ordered Repeat number: 1 Start: 01-09-2019 take 81 mg by mouth once daily aspirin 81 mg, Oral, Daily, Refills(s) 0, Prophylaxis Start Date: 01/09/19 Status: Ordered Repeat number: 1 take 1 tablet by joslyn th in the morning aspirin 81 MG EC tablet Take 1 tablet by mouth in the morning. Active B Complex with Vitamin C Gummy oral tablet, chewable (2 sources) Start: 04-14-2025 take 1 tablet by mouth [...] Active bacitracin top 500 units/g Oint PACKET (2 sources) Start: 04-18-2025 bacitracin top 500 units/g Oint [...] Discontinued cetirizine hydrochloride 10 mg oral tablet (4 sources) Histamine-1 Receptor Antagonist Start: 04-14-2025 take [...] # 6 tab(s), Refills(s) 0, Pharmacy: [facility]/pharmacy #[id number], 185, cm, 10/02/24 11:15:00 EST, Height/Length Dosing, 91, kg, 10/02/24 11:15:00 EST, Weight Dosing Start Date: 10/16/24 Status: Ordered Start: 08-11-2024 take 1 tablet by joslyn th twice daily Cipro 500 mg Tab 500 mg = 1 tab(s), Oral, BID, Start 3 days prior to procedure., # 6 tab(s), Refills(s) 0, Pharmacy: [facility]/pharmacy #[id number], 185, cm, 08/08/24 10:28:00 EDT, Height/Length Dosing, 91, kg, 08/08/24 10:28:00 EDT, Weight Dosing Start Date: 08/11/24 Status: Ordered Daily Fiber Sugar-Free (1 source) Start: 04-14-2025 take 3 capsules by mouth once daily Daily Fiber Sugar-Free 3 capsules, Oral, Daily, Refill(s) 0 Start Date: 04/14/25 Status: Ordered Repeat number: 1 dapagliflozin 5 mg oral tablet (1 source) Sodium-Glucose Cotransporter 2 Inhibitor Start: 06-11-2025 take 5 mg by mouth once daily Farxiga 5 mg, Oral, Daily Start Date: 06/11/25 Status: Ordered Repeat number: 1 diazePAM 10 mg oral tablet (4 sources) Benzodiazepine Start: 10-16-2024 Valium 10 mg Tab 10 mg = 1 tab(s), Oral, Once, take one hour prior to the procedure., # 1 tab(s), Refills(s) 0, Pharmacy: [facility]/pharmacy #[id number], 185, cm, 10/02/24 11:15:00 EST, [...] in the evening. Inject with meals. Active labetalol hydrochloride 300 mg oral tablet (20 sources) beta-Adrenergic [place] Start: 06-11-2025 labetalol 300 mg Tab 300 mg = 1 tab(s), Refills(s) 0 Start Date: 06/11/25 Status: Ordered Repeat number: 1 Start: 04-17-2025 End: 04-17-2025 labetalol 100 mg [...] 07/23/2023 Active linagliptin 5 mg oral tablet (3 sources) Dipeptidyl Peptidase 4 Inhibitor Start: 06-11-2025 take 5 mg by mouth once daily Tradjenta 5 mg, Oral, Daily Start Date: 06/11/25 Status: Ordered Repeat number: 1 take 1 tablet by mouth once umang y linaGLIPtin (Tradjenta) 5 MG tablet Take 5 mg by mouth Daily Active Loratadine (3 sources) Start: 06-11-2025 loratadine 10 mg, Daily Start Date: 06/11/25 Status: Ordered Repeat number: 1 take 1 tablet by mouth once umang y loratadine (Claritin Reditabs) 10 MG disintegrating tablet [...] Ordered metFORMIN hydrochloride 500 mg oral tablet (20 sources) Biguanide Start: 08-08-2024 take 1 tablet [...] Date: 03/31/22 Status: Ordered omeprazole 20 mg delayed release oral capsule (20 sources) Proton Pump Inhibitor Start: 06-11-2025 omeprazole 20 mg Cap-DR 20 mg = 1 cap(s) Start Date: 06/11/25 Status: Ordered Repeat number: 1 Start: 01-09-2019 omeprazole 20 mg, Oral, Daily, [...] # 42 tab(s), Refills(s) 0, Pharmacy: [facility]/pharmacy #[id number], 185, cm, 10/02/24 11:15:00 EST, [...] DAY for 90 Active polyethylene glycol 3350 01829 mg powder for oral solution (2 sources) Osmotic Laxative take 17 g by mouth every twenty-four hours as needed polyethylene glycol, PEG, 3350 (Miralax) 17 g packet Take 17 g by mouth Daily as needed Active Klor-Con (20 sources) Start: 01-09-20 Klor-Con 20 mEq, Oral, Daily, Refills(s) 0, [...] Start: 01-09-2019 take 2 tablets by mo [facility] twice daily primidone 50 mg Tab 100 [...] Status: Ordered rivaroxaban 15 mg oral tablet (8 sources) Factor Xa Inhibitor Start: 04-14-2025 take 1 tablet by mouth once daily in the evening Xarelto 15 mg oral tablet 15 mg = 1 tab(s), Oral, qPM, Refills(s) 0 Start Date: 04/14/25 Status: Ordered Repeat number: 1 SITagliptin 100 mg oral tablet (19 sources) Dipeptidyl Peptidase 4 Inhibitor Start: 01-09-2019 [...] Status: Ordered spironolactone 25 mg oral tablet (4 sources) Aldosterone Antagonist Start: 04-14-2025 take 1 tablet by mouth once daily spironolactone 25 mg Tab 25 mg = 1 tab(s), Oral, Daily, Refills(s) 0 Start Date: 04/14/25 Status: Ordered Repeat number: 1 tamsulosin hydrochloride 0.4 mg oral capsule (20 sources) alpha-Adrenergic Charlotte Start: 01-09-2019 End: 04-18-2025 take 0.4 mg by mouth once daily Flomax 0.4 mg, Oral, Daily, Refills(s) 0, Urinary discomfort Start Date: 01/09/19 Status: Ordered Repeat number: 1 60 actuat tiotropium 0.13483 mg/actuat inhalation spray (20 sources) Anticholinergic Start: 01-09-2019 Spiriva Respimat 1.25 mcg/inh inhalation aerosol 2 puff(s), Inhalation, Daily, Refill(s) 0, COPD Start Date: 01/09/19 Status: Ordered Repeat number: 1 take 1 capsule by in halation in the morning tiotropium (Spiriva) [address] 1 capsule into inhaler and inhale in the morning. Active Vitamin D3 2000 intl units (2 sources) Start: 04-14-2025 take 2000 [IU] by mouth [...] mg/ml / clotrimazole 10 mg/ml topical cream (8 sources) Azole Antifungal, Corticosteroid Start: 08-08-2024 betamethasone-clotrimazole [...] Discontinued Start: 08-28-2020 take 1 capsule by [facility] once daily Align 4 mg oral [...] Date: 01/09/19 Status: Ordered Start: 01-09-2019 End: 04-18-2025 Catapres 0.2 mg Tab 0.2 mg = 1 tab(s), Tab, Oral, Start date 04/18/25 9:00:00 AM EDT, 04/16/25 7:30:00 EDT Start Date: 04/18/25 Stop Date: 04/18/25 Status: Completed Repeat number: 1 labetalol 5 mg/mL IV Eda (1 source) [...] 8 ounces of water or juice. Active Problems Active Problems Problem Classification Problem Date Documented Da te Episodic/Chronic Abdominal pain (1 source) Abdominal pain; Translations: [Unspecified abdominal pain] Onset: 10-01-2023 Episodic Acute cerebrovascular disease (1 source) Cerebral infarction; Translations: [Cerebral infarction, unspecified] Onset: 04-14-2025 Chronic Acute cerebrovascular disease (1 source) Acute cerebrovascular disease Onset: 02-14-2025 Anxiety disorders (2 sources) Anxiety disorder, unspecified; Translations: [F41.9] Onset: 04-18-2025 Chronic Asthma (19 sources) Asthma 08-28-2020 Chronic Cardiac dysrhythmias (6 sources) Unspecified atrial fibrillation; Translations: [Cardiac arrhythmia, unspecified] Onset: 03-08-2023 Chronic Cardiac dysrhythmias (2 sources) Palpitations; Translations: [Palpitations] Onset: 05-10-2025 Episodic Chronic kidney disease (1 source) Chronic kidney disease; Translations: [Chronic kidney disease, unspecified] Onset: 04-14-2025 Chronic Chronic kidney disease (8 sources) Chronic kidney disease; Translations: [CHRONIC KIDNEY DISEASE STAGE 3B] Onset: 11-18-2022 Conduction disorders (4 sources) Left bundle-branch block, unspecified; Translations: [Left bundle-branch block, unspecified] Onset: 05-10-2025 Chronic Congestive heart failure; nonhypertensive (5 sources) Heart failure; Translations: [Heart failure, unspecified] Onset: 03-16-2025 Chronic Coronary atherosclerosis and other heart disease (6 sources) Unstable angina; Translations: [Chronic ischemic heart disease, unspecified] Onset: 04-30-2025 Chronic Deficiency and other anemia (1 source) [...] 04-30-2022 08-28-2020 Chronic Disorders of lipid metabolism (6 sources) Hyperlipidemia, unspecified; Translations: [Mixed hyperlipidemia] Onset: 04-28-2022 Chronic Diverticulosis and diverticulitis (18 sources) Diverticula of intestine; Translations: [Diverticulosis of intestine, part unspecified, without perforation or abscess without bleeding] Onset: 06-09-2022 Chronic Essential hypertension (5 sources) Essential (primary) hypertension; Translations: [ESSENTIAL PRIMARY HYPERTENSION] Onset: 04-30-2022 Chronic Genitourinary symptoms and ill-defined conditions (4 sources) Post-void dribbling; Translations: [Post-micturition incontinence ] Onset: 12-04-2024 Chronic Genitourinary symptoms and ill-defined conditions (18 sources) Retention of urine; Translations: [Retention of urine, unspecified] Onset: 08-08-2024 Episodic Heart valve disorders (15 sources) Nonrheumatic aortic (valve) stenosis; Translations: [Rheumatic tricuspid insufficiency] Onset: 07-01-2022 Chronic Hemorrhoids (18 sources) Hemorrhoids; Translations: [Unspecified hemorrhoids] Onset: 06-09-2022 Episodic Hyperplasia of prostate (13 sources) Benign prostatic hypertrophy with outflow obstruction; Translations: [Benign prostatic hyperplasia with lower urinary tract symptoms] Onset: 08-08-2024 Chronic Hypertension with complications and secondary hypertension (4 sources) Hypertensive chronic kidney disease with stage 1 through stage 4 chronic kidney disease, or unspecified chronic kidney disease; Translations: [Hypertensive urgency ] Onset: 08-27-2022 Chronic Inflammatory conditions of male genital organs (11 sources) Balanitis; 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] Onset: 08-08-2024 Chronic Late effects of cerebrovascular disease (12 sources) Sequelae of cerebral infarction; Translations: [Unspecified sequelae of cerebral infarction] Onset: 04-10-2025 04-10-2025 Chronic Mycoses (10 sources) Pain in toe; Translations: [Tinea unguium] 09-08-2024 Episodic Nausea and vomiting (12 sources) Nausea; Translations: [Nausea] Onset: 10-01-2023 Episodic Nonspecific chest pain (2 sources) Chest pain, unspecified; Translations: [Chest pain, unspecified] Onset: 05-10-2025 Episodic Nutritional deficiencies (2 sources) Vitamin D deficiency, unspecified; Translations: [Vitamin D deficiency, unspecified] Onset: 01-03-2025 Chronic Occlusion or stenosis of precerebral arteries (12 sources) Bilateral stenosis of carotid arteries; Translations: [Occlusion and stenosis of bilateral carotid arteries] Onset: 04-10-2025 04-10-2025 Chronic Other aftercare (3 sources) Long-term current use of anticoagulant; Translations: [half-way (current) use of anticoagulants] Onset: 08-08-2024 Episodic Other aftercare (1 source) Long-term current use of drug therapy; Translations: [Other long lines operator (current) drug therapy] Onset: 04-14-2025 Episodic Other and unspecified benign neoplasm (20 sources) History of polyp of colon; Translations: [Personal history of colonic polyps] Onset: 03-31-2022 Episodic Other and unspecified benign neoplasm (20 sources) Polyp of colon; Translations: [Polyp of [...] Chronic Other diseases of bladder and urethra (8 sources) Overactive bladder 08-08-2024 Chronic Other diseases of kidney and ureters (2 sources) Urinary tract obstruction; Translations: [Other obstructive and reflux uropathy] Onset: 09-25-2024 Episodic Other gastrointestinal disorders (19 sources) Chronic constipation with overflow 08-28-2020 Episodic Other gastrointestinal disorders (4 sources) Other fecal abnormalities; Translations: [OTHER FECAL ABNORMALITIES] Onset: 02-27-2023 Episodic Other gastrointestinal disorders (18 sources) Urgent desire for stool; Translations: [Fecal urgency] Onset: 04-13-2023 Episodic Other gastrointestinal disorders (2 sources) Abnormal feces; Translations: [Other fecal abnormalities] Onset: 04-13-2023 Episodic Other gastrointestinal disorders (16 sources) Loose stool 04-13-2023 Episodic Other gastrointestinal disorders (14 sources) Abdominal wind pain; Translations: [Gas pain] Onset: 06-10-2023 Episodic Other gastrointestinal disorders (2 sources) Constipation, unspecified; Translations: [Constipation, unspecified] Onset: 10-01-2023 Episodic Other gastrointestinal disorders (11 sources) Constipation 10-01-2023 Episodic Other gastrointestinal disorders (1 source) Other constipation; Translations: [Other constipation] Onset: 04-15-2025 Episodic Other hereditary and degenerative nervous system conditions (20 sources) Essential tremor; Translations: [Essential tremor] Onset: 01-07-2024 01-07-2024 Chronic Other lower respiratory disease (2 sources) Shortness of breath; Translations: [Shortness of breath] Onset: 03-16-2025 Episodic Other male genital disorders (11 sources) Acquired buried penis; Translations: [Acquired buried [...] venous thrombosis and embolism] Onset: 04-14-2025 Episodic Pleurisy; pneumothorax; pulmonary collapse (2 sources) Pleural effusion, not elsewhere classified; Translations: [Pleural effusion, not elsewhere classified] Onset: 05-10-2025 Episodic Pulmonary heart disease (4 sources) Pulmonary [...] organs] Onset: 03-31-2022 Episodic Residual codes; unclassified (19 sources) Family history of cancer of colon [...] UNSPECIFIED; Translations: [COUGH, UNSPECIFIED] Onset: 06-19-2022 Unclassified (11 sources) Finding of sensation of abdomen 10-01-2023 Unclassified (8 sources) Drug therapy finding 08-08-2024 Unclassified (2 sources) Longstanding persistent atrial fibrillation; Translations: [Longstanding persistent atrial fibrillation] Onset: 04-30-2025 Unclassified (1 source) Other pericardial effusion (noninflammatory); [...] Onset: 04-30-2022 Episodic Other aftercare (1 source) half-way (current) use of aspirin; Translations: [CONTRACT TECHNICIAN CURRENT USE OF ASPIRIN] Onset: 08-27-2022 Episodic Other aftercare (1 source) computer terminal operator (current) use of anticoagulants; Translations: [HALFWAY CURRNT USE ANTICOAGULANTS] Onset: 08-27-2022 Episodic Other aftercare (1 source) Other halfway (current) drug therapy; Translations: [OTH HALFWAY CURRENT DRUG THERAPY] Onset: 08-27-2022 Episodic Other [...] (noninflammatory); Translations: [Other pericardial effusion (noninflammatory)] Onset: 04-30-2025 Urinary tract infections (1 source) Urinary tract infection, site not specified; Translations: [UTI SITE NOT SPECIFIED] Onset: 08-27-2022 Episodic Results Test Name Value Interpretation Reference Range Facility Urology Office/Clinic Noteon 06-12-2025 Urology Office/Clinic Note Urology Office/Clinic Note Chief Complaint pt here for follow up with [facility] HPI Staff 6 month f/u with [facility]. Dx: BPH with urinary obstruction, gross hematuria, incomplete bladder emptying, OAB, post void dribbling, acquired buried penis, balanitis and anticoagulated S/P Urolift 10/23/24 Flomax qd [facility]: 33mL SHIMS: 14 IPPS: 14 pt complains of weak stream denies pain/burning denies visible blood denies flank pain Review of Systems PHQ Score Initial Depression Screen Score: 0 SCORE No fever, chills, malaise, myalgia. No abdominal pain, flank pain, gross hematuria. Physical Exam Vitals & Measurements HR: 60(Peripheral) RR: 18 BP: 134/68 HT: 185 cm HT: 73 in WT: 85.4 kg WT: 188.275 lb BMI: 24.95 General: nontoxic, NAD Mouth: moist mucosa Lungs: normal respiratory effort Cardio: regular rate, good distal perfusion Abdomen: nondistended Neurologic: Grossly normal Skin: No rashes or suspicious lesions Assessment/Plan KNA pt. Hx balanitis. 1. BPH with urinary obstruction (N40.1: Benign [...] out of his penis. Pt presented to [facility] ER 10/28/24 due to clot retention. Seen in consult by Dr. Singh. 24 Fr three-way palomares placed. CBI initiated. Palomares was removed on 11/06/24. Taking Flomax 0.4mg qd which he has been on for years. PVR(cc): 08/08/24 - 472 12/04/24 - 198 Today - 33 ml IPSS 14 QOL 2. Overall pleased w current urinary habits. 2. 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 Able to void if stands and pushes belly back. Follow-up No qualifying data available Dr Alejandre in [place] [facility] Benign Prostatic Hyperplasia Problem List/Past Medical History Ongoing Abdominal cramping [...] Colonoscopy, History of hernia repair, Tonsillectomy. Medications Aspirin Low Dose, 81 mg, Daily B Complex with Vitamin C Gummy oral tablet, chewable, 1 tab(s), Chewed, Daily bacitracin top 500 units/g Oint PACKET, Topical, BID betamethasone-clotrima zole Top 0.05%-1% Crm 15 gram cetirizine 10 mg Tab, 10 mg= 1 tab(s), Oral, Daily clonidine, 0.2 mg, Oral, BID Farxiga, 5 mg, Oral, Daily Flomax, 0.4 mg, Oral, Daily glimepiride, 8 mg, Oral, Daily Januvia, 100 mg, Oral, Daily Jardiance 10 mg oral tablet, 25 mg, Oral, qAM Klor-Con, 20 mEq, Oral, Daily labetalol 300 mg Tab, 300 mg= 1 tab(s) loratadine, 10 mg, Daily magnesium oxide, 500 mg, Oral, TID Metamucil 525 mg oral capsule, 1050 mg= 2 cap(s), Oral, Daily, 1 refills metformin 500 mg Tab, 500 mg= 1 tab(s), Oral, TID omeprazole 20 mg Cap-DR, 20 mg= 1 cap(s) pioglitazone 30 mg Tab, 45 mg, Oral, Daily Pred Mild, 1 drop(s), Eye-Both, BID primidone 50 mg Tab, 100 mg= 2 tab(s), Oral, BID Spiriva Respimat 1.25 mcg/inh inhalation aerosol, 2 puff(s), Inhalation, Daily spironolactone 25 mg Tab, 25 mg= 1 tab(s), Oral, Daily Symbicort, 80-4.5 mcg/actuation, Inhalation, BID Tradjenta, 5 mg, Oral, Daily Vitamin D3 2000 intl units, 2000 unit(s), Oral, Daily Xarelto 15 mg oral tablet, 15 mg= 1 tab(s), Oral, qPM Zetia, 10 mg, Oral, Daily Allergies Contrast Dye (Unknown) Nitro TD Patch-A (Unknown) Nitroglycerin Patch (Unknown) aminolevulinic acid (Unknown) simvastatin (elevated liver enzymes) statins (Unknown) Social History Alcohol Never., 12/03/2024 Substance Abuse - Denies Substance Abuse, 08/28/2020 Never., 12/03/2024 Tobacco - Denies Tobacco Use, 08/28/2020 Never Smokeless Tobacco Use:. Cigarettes, 06/11/2025 Former smoker, quit more than 30 days ago Tobacco Use:., 10/01/2024 Family History Primary malignant neoplasm of colon: Mother. Immunizations Vaccine Date Status Comments zoster vaccine, inactivated 04/05/2025 Recorded RSV vaccine, preF A-preF B, recombinant 10/21/2023 Recorded influenza virus vaccine, inactivated - Not Given Patient Refuses influenza virus vaccine, inactivated - Not Given Patient Refuses SARS-C (more content not included)... Normal [facility] Comment on above: Result Comment: Elec tronically Signed By: LU OLMEDO PA-C\.br\Date and Time Signed: 06/12/25 13:19 EDT Ambulatory Visit Summaryon 0 06-11-2025 Ambulatory Visit Summary Ambulatory Visit Summary NADIR BETH :1940 Visit Date:06/11/2025 Ambulatory Visit Instructions Your Diagnosis BPH with urinary obstruction Your Care Team Attending Physician - LU OLMEDO PA-C Primary Care Physician - Van Youssef MD This Is Your Medications List tamsulosin (Flomax) Contact prescribing physician if questions or concerns aspirin (Aspirin Low Dose) bacitracin topical (bacitracin top 500 units/g Oint PACKET) betamethasone-clotrima zole topical (betamethasone-clotrim azole Top 0.05%-1% Crm 15 gram) budesonide-formoterol (Symbicort) cetirizine (cetirizine 10 mg Tab) cholecalciferol (Vitamin D3 2000 intl units) clonidine dapagliflozin (Farxiga) empagliflozin (Jardiance 10 mg oral tablet) ezetimibe (Zetia) glimepiride labetalol (labetalol 300 mg Tab) linagliptin (Tradjenta) loratadine magnesium oxide metformin (metformin 500 mg Tab) multivitamin (B Complex with Vitamin C Gummy oral tablet, chewable) omeprazole (omeprazole 20 mg Cap-DR) pioglitazone (pioglitazone 30 mg Tab) potassium chloride (Klor-Con) prednisoLONE ophthalmic (Pred Mild) primidone (primidone 50 mg Tab) psyllium (Metamucil 525 mg oral capsule) rivaroxaban (Xarelto 15 mg oral tablet) sitagliptin (Januvia) spironolactone (spironolactone 25 mg Tab) tiotropium (Spiriva Respimat 1.25 mcg/inh inhalation aerosol) Procedures Performed Colonoscopy (05/11/2022), Cardioversion (01/11/2017), Back, Cholecystectomy, Colonoscopy, History of hernia repair, Tonsillectomy. Discharge Vitals Heart Rate (Peripheral) 60 Respiratory Rate 18 Blood Pressure 134/68 Height 185 cm Height 73 in Weight 85.4 kg Weight 188.275 lb BMI 24.95 What to do next Scheduled Follow-Up Appointments Wednesday2025 9:00 AM EDT With: MARQUIS LOUISE MD Where: [facility] [address], [address] [place] [address]- Medications What How Much When Why Instructions Unchanged tamsulosin (Flomax) 0.4 Milligram By Mouth Every day Unchanged aspirin (Aspirin Low Dose) 81 Milligram Every day Contact prescribing physician if questions or concerns Unchanged bacitracin topical (bacitracin top 500 units/ g Oint PACKET) Topical 2 times a day Contact prescribing physician if questions or concerns Unchanged betamethasone-clotrima zole topical (betamethasone-clotrim azole Top 0.05%-1% Crm 15 gram) Contact prescribing physician if questions or concerns Unchanged budesonide-formoterol (Symbicort) 80-4.5 mcg/actuation Inhalation 2 times a day Contact prescribing physician if questions or concerns Unchanged cetirizine (cetirizine 10 mg Tab) 1 Tablets By Mouth Every day Contact prescribing physician if questions or concerns Unchanged cholecalciferol (Vitamin D3 2000 intl units) 2,000 Units By Mouth Every day Contact prescribing physician if questions or concerns Unchanged clonidine 0.2 Milligram By Mouth 2 times a day Contact prescribing physician if questions or concerns Unchanged dapagliflozin (Farxiga) 5 Milligram By Mouth Every day Contact prescribing physician if questions or concerns Unchanged empagliflozin (Jardiance 10 mg oral tablet) 25 Milligram By Mouth Once a day (in the morning) Contact prescribing physician if questions or concerns Unchanged ezetimibe (Zetia) 10 Milligram By Mouth Every day Contact prescribing physician if questions or concerns Unchanged glimepiride 8 Milligram By Mouth Every day Contact prescribing physician if questions or concerns Unchanged labetalol (labetalol 300 mg Tab) 1 Tablets Contact prescribing physician if questions or concerns Unchanged linagliptin (Tradjenta) 5 Milligram By Mouth Every day Contact prescribing physician if questions or concerns Unchanged loratadine 10 Milligram Every day Contact prescribing physician if questions or concerns Unchanged magnesium oxide 500 Milligram By Mouth 3 times a day Contact prescribing physician if questions or concerns Unchanged metformin (metformin 500 mg Tab) 1 Tablets By Mouth 3 times a day Contact prescribing physician if questions or concerns Unchanged multivitamin (B Complex with Vitamin C Gummy oral tablet, chewable) 1 Tablets Chewed Every day Contact prescribing physician if questions or concerns Unchanged omeprazole (omeprazole 20 mg Cap-DR) 1 Capsules Contact prescribing physician if questions or concerns Unchanged pioglitazone (pioglitazone 30 mg Tab) 45 Milligram By Mouth Every day Contact prescribing physician if questions or concerns Unchanged potassium chloride (Klor-Con) 20 Milliequivalent By Mouth Every day Contact prescribing physician if questions or concerns Unchanged prednisoLONE ophthalmic (Pred Mild) 1 Drops Both eyes 2 times a day Contact prescribing physician if questions or concerns Unchanged primidone (primidone 50 mg Tab) 2 Tablets By Mouth 2 times a day Contact prescribing physician i (more content not included)... [facility] 36on 05-30-2025 36 Studio Assistant called shirley iverson to contact office back to reschedule appointment with . [facility] Office Visiton 05-28-2025 Follow-up visit [id number] Nadir Beth 1940 M [facility] Provider Department Center 05/28/2025 RUY ESQUIVEL Family History Problem Relation Age of Onset Coronary artery disease Father Family Status - Relation Status Age at Mother Father Level of Service:96411 [place] OFFICE/OUTPATIENT ESTABLISHED MOD MDM 30 MIN [facility] Orders Onlyon 05-28-2025 Orders Only [id number] Nadir Beth 1940 M Date Provider Department Center 05/28/2025 RUY ESQUIVEL Family History Problem Relation Age of Onset Coronary artery disease Father Family Status - Relation Status Age at Mother Father Normal [facility] 30on 05-17-2025 30 Daily Case Managemen t Update Barriers to Discharge: Patient is to discharge to long term facility [facility] today. Stretcher transport has been established with [facility], tow picker time 1934. Diet: Dietary Orders (From [...] Request Once Comments: Omelet with green pepper, norwegian cheese and onion Wheat toast Sausage Raisin bran Milk Decaf coffee 05/17/25 0802 05/16/25 1553 Special Kitchen Request Once Comments: [place] burger with cheese On the side: tomato, [...] Request Once Comments: Omelet with green pepper, norwegian cheese and onion, 1 slice wheat toast, [...] coke 05/10/25 1807 Physician Expected Discharge Date: 05/17/2025 Discharge Delays: [...] for OT? Answer: gait abnormality 05/10/25 0411 Normal [facility] 30 The patient is Moderately Stable - Low [...] Adult Goal: Maintains hematologic stability Outcome: Progressing Normal [facility] CBC WITH AUTO DIFFERENTIALon 05-17-2025 Erythrocyte distribution width (RBC) [Ratio] 19.8 % High 11.5-15.0 [facility] Comment on above: Performed By: #### L [id number] #### [facility] ([facility]) [address] [place] [address] ERYTHROCYTE MEAN CORPUSCULAR HEMOGLOBIN CONCENTRATION (G/DL) BY AUTOMATED 30.4 g/dL Low 32.0-35.0 [facility] Comment on above: Performed By: #### L [id number] #### [facility] ([facility]) [address] [place] [address] Hematocrit (Bld) [Volume fraction] 34.2 % Low 39.0-50.0 [facility] Comment on above: Performed By: #### L [id number] #### [facility] ([facility]) [address] [place] [address] Hemoglobin (Bld) [Mass/Vol] 10.4 g/dL Low 13.0-17.0 [facility] Comment on above: Performed By: #### L [id number] #### [facility] ([facility]) [address] [place] [address] MCH (RBC) [Entitic mass] 25.6 pg Low 27.0-33.0 [facility] Comment on above: Performed By: #### L [id number] #### [facility] ([facility]) [address] [place] [address] MCV (RBC) [Entitic vol] 84.2 fL Normal 82.0-98.0 [facility] Comment on above: Performed By: #### L [id number] #### [facility] ([facility]) [address] [place] [address] NRBC (PER 100 WBCS) BY AUTOMATED COUNT 0.0 % Normal 0 [facility] Comment on above: Performed By: #### L [id number] #### [facility] ([facility]) [address] [place] [address] PLATELETS (10*3/UL) IN BLOOD AUTOMATED COUNT 256 10*3/uL Normal 150-400 [facility] Comment on above: Performed By: #### L [id number] #### [facility] ([facility]) [address] [place] [address] RBC (Bld) [#/Vol] 4.06 10*6/uL Low 4.20-5.70 [facility] Comment on above: Performed By: #### L [id number] #### [facility] ([facility]) [address] [place] [address] WBC (Bld) [#/Vol] 12.14 10*3/uL High 4.00-10.60 [facility] Comment on above: Performed By: #### L [id number] #### [facility] ([facility]) [address] [place] [address] COMPREHENSIVE METABOLIC PANE Jaren 05-17-2025 ALANINE AMINOTRANSFERASE (SGPT) (U/L) IN SER/PLAS <3 Low 7-52 [facility] Comment on above: Performed By: #### L [id number] ####[facility] ([facility])[address] [place] [address] Albumin [Mass/Vol] 3.4 g/dL Low 3.5-5.[address] [facility] Comment on above: Performed By: #### L [id number] ####[facility] ([facility])[address] [place] [address] ALP [Catalytic activity/Vol] 68 U/L Normal 34-104 [facility] Comment on above: Performed By: #### L [id number] ####[facility] ([facility])[address] [place] [address] Anion gap [Moles/Vol] 15 mmol/L Normal 7-20 [facility] Comment on above: Performed By: #### L [id number] ####[facility] ([facility])[address] [place] [address] AST [Catalytic activity/Vol] 13 U/L Normal 13-39 [facility] Comment on above: Performed By: #### L [id number] ####[facility] ([facility])[address] [place] [address] Bilirubin [Mass/Vol] 0.5 mg/dL Normal 0.3-1.0 [facility] Comment on above: Performed By: #### L [id number] ####[facility] ([facility])[address] [place] [address] Calcium [Mass/Vol] 8.6 mg/dL Normal 8.6-10.[address] [facility] Comment on above: Performed By: #### L [id number] ####[facility] ([facility])[address] [place] [address] Chloride [Moles/Vol] 104 mmol/L Normal 98-107 [facility] Comment on above: Performed By: #### L [id number] ####[facility] ([facility])[address] [place] [address] CO2 [Moles/Vol] 25 mmol/L Normal 21-31 [facility] Comment on above: Performed By: #### L [id number] ####[facility] ([facility])[address] [place] [address] Creatinine [Mass/Vol] 1.73 mg/dL High 0.70-1.30 [facility] Comment on above: Performed By: #### L [id number] ####[facility] ([facility])[address] [place] [address] GLOMERULAR FILTRATION RATE ML/MIN/1.73 SQ M.PREDICTED 38.0 mL/min/1.73m*2 Low >60.0 [facility] Comment on above: Result Comment: The [facility]???s estimated glomerular filtration rate (eGFR) will no [...] disproportionately affect any one group of individuals. Performed By: #### L [id number] ####[facility] ([facility])[address] [place] [address] Glucose [Mass/Vol] 239 mg/dL High 70-[address] [facility] Comment on above: Performed By: #### L [id number] ####[facility] ([facility])[address] [place] [address] Potassium [Moles/Vol] 3.9 mmol/L Normal 3.5-5.1 [facility] Comment on above: Performed By: #### L [id number] ####[facility] ([facility])[address] [place] [address] Protein [Mass/Vol] 6.3 g/dL Normal 6.0-8.[address] [facility] Comment on above: Performed By: #### L [id number] ####[facility] ([facility])[address] [place] [address] Sodium [Moles/Vol] 140 mmol/L Normal 136-[address] [facility] Comment on above: Performed By: #### L [id number] ####[facility] ([facility])[address] [place] [address] Urea nitrogen [Mass/Vol] 38 mg/dL High - [facility] Comment on above: Performed By: #### L [id number] ####[facility] ([facility])[address] [place] [address] UREA NITROGEN/CREATININE (MASS RATIO) IN SER/PLAS 22.0 Normal [facility] Comment on above: Performed By: #### L [id number] ####[facility] ([facility])[address] [place] [address] DSon 05-17-2025 DS -- Attestation signed by Nikolas Gonzalez MD at 05/23/2025 8:30 AM I agree with the assessment and plan of Dr. Raza Primary Pulmonary Service Discharge Summary Discharge Summary [...] was admitted as a direct transfer from [place] on 05/10/2025 for acute on chronic heart failure. 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 He presented to the ED on the advice of his physician following an increase in lower extremity edema with associated labs showing a BNP 6200. In the [place] ED he was found to have pulmonary vascular congestion with right sided pleural effusion on chest x-ray, and found to be hypertensive at 190/68, and EKG showed A-fib, he was initially managed medically with lasix and antihypertensives prior to transfer. Patient follows up with Dr. Bland who had scheduled right heart cath on 05/10/2025. At [email or web address]] echo was performed which was unable to [...] with an event monitor given new LBBB. Follow-up scheduled 05/28/25, 06/18/[address] Cisneros. Of [...] Admission: Cardiology and cardiothoracic surgery Dear MD Youssef Ronald is advised to follow up with you within 1-2 weeks. Items to follow up in ambulatory setting: CHEST X-RAY in one week Follow-up with: Cardiology and Pulmonary Scheduled appointments: Future Appointments Date Time Provider Department Center 05/28/2025 2:20 PM Ruy Amanda CNP [facility] [place] 06/15/2025 10:30 AM [facility] [[email or web address]] CV ECHO ROOM 2 [facility] 06/18/2025 11:30 AM Claribel Cisneros MD [facility] [place] Your medication list [...] 40 mg tablet Commonly known as: Lasix glimepi (more content not included)... Normal [facility] MANUAL DIFFERENTIALon 2024 BASOPHILS (10*3/UL) IN BLOOD BY CALCULATION 0.05 10*3/uL Normal 0.00-0.20 [facility] Comment on above: Performed By: #### L [id number] #### [facility] ([facility]) [address] [place] [address] BASOPHILS/100 LEUKOCYTES IN BLOOD BY AUTOMATED COUNT 0.4 % Normal 0.0-1.0 [facility] Comment on above: Performed By: #### L [id number] #### [facility] ([facility]) [address] [place] [address] EOSINOPHILS (10*3/UL) IN BLOOD BY CALCULATION 0.05 10*3/uL Normal 0.00-0.50 [facility] Comment on above: Performed By: #### L [id number] #### [facility] ([facility]) [address] [place] [address] EOSINOPHILS/100 LEUKOCYTES IN BLOOD BY AUTOMATED COUNT 0.4 % Normal 0.0-6.0 [facility] Comment on above: Performed By: #### L [id number] #### [facility] ([facility]) [address] [place] [address] IMMATURE GRANULOCYTES (10*3/UL) IN BLOOD BY CALCULATION 0.07 10*3/uL Normal 0.00-0.20 [facility] Comment on above: Performed By: #### L [id number] #### [facility] ([facility]) [address] [place] [address] IMMATURE GRANULOCYTES/100 LEUKOCYTES IN BLOOD BY AUTOMATED COUNT 0.6 % Normal 0.0-1.0 [facility] Comment on above: Performed By: #### L [id number] #### [facility] ([facility]) [address] [place] [address] LYMPHOCYTES (10*3/UL) IN BLOOD BY CALCULATION 0.87 10*3/uL Low 1.20-4.00 [facility] Comment on above: Performed By: #### L [id number] #### [facility] ([facility]) [address] [place] [address] LYMPHOCYTES/100 LEUKOCYTES IN BLOOD BY AUTOMATED COUNT 7.2 % Low 20.0-45.0 [facility] Comment on above: Performed By: #### L [id number] #### [facility] ([facility]) [address] [facility] [place] [address] MONOCYTES (10*3/UL) IN BLOOD BY CALCUATION 1.92 10*3/uL High 0.10-1.00 [facility] Comment on above: Performed By: #### L [id number] #### [facility] ([facility]) [address] [place] [address] MONOCYTES/100 LEUKOCYTES IN BLOOD BY AUTOMATED COUNT 15.8 % High 5.0-12.0 [facility] Comment on above: Performed By: #### L [id number] #### [facility] ([facility]) [address] [place] [address] NEUTROPHILS (10*3/UL) IN BLOOD BY CALCULATION 9.2 10*3/uL High 1.6-7.6 [facility] Comment on above: Performed By: #### L [id number] #### [facility] ([facility]) [address] [place] [address] NEUTROPHILS/100 LEUKOCYTES IN BLOOD BY AUTOMATED COUNT 75.6 % High 40.0-72.0 [facility] Comment on above: Performed By: #### L [id number] #### [facility] ([facility]) [address] [place] [address] NURSNOTEon 05-17-2025 NURSNOTE Report called to BRANDEN Norton at [facility]. Normal [facility] NURSNOTE Patient Name: Nadir Beth : 1940 Primary Care Physician: Van Youssef MD Admission Date: 05/10/2025 RAPID RESPONSE TEAM ICU TRANSFER FOLLOW-UP NOTE SUBJECTIVE / OBJECTIVE: Follow-up for previous transfer out of the ICU notification for 05/16/25 at 1504. ASSESSMENT / INTERVENTIONS: Recent Vital Signs: Vitals: 05/17/25 0000 05/17/25 0400 07/03/52505/17/25917 BP: 111/51 (!) 115/44 167/78 Pulse: 76 80 88 Resp: Temp: 36.6 ???C (97.9 ???F) TempSrc: Temporal SpO2: 99% 96% 100% Weight: [...] Liz Joshi RN Rapid Response Team Nurse [phone] 05/17/2025 10:35 AM Normal [facility] NURSNOTE Patient Name: Nadir Beth : 1940 Primary Care Physician: Van Youssef MD Admission Date: 05/10/2025 RAPID RESPONSE TEAM ICU TRANSFER FOLLOW-UP NOTE SUBJECTIVE / OBJECTIVE: Follow-up for previous transfer out of the ICU notification for 05/16 at 1504. ASSESSMENT / INTERVENTIONS: Recent Vital Signs: Vitals: 05/16/25 1505 05/16/25 1601 05/16/25 2000 05/17/25 0000 BP: 130/57 141/68 135/55 111/51 Pulse: 85 86 76 Resp: 14 13 11 19 Temp: 36.4 ???C (97.5 ???F) 36.5 ???C (97.7 ???F) TempSrc: Temporal Temporal SpO2: 95% 97% 99% [...] time, but encouraged to reach out to SONAR TECHNICIAN if anything changes. Marc Araiza RN Rapid Response Team Nurse [phone] 05/17/2025 2:32 AM Normal [facility] POCT GLUCOSE METER UNSOLICIT ED RESULTSon 05-17-2025 Glucose [Mass/Vol] 331 mg/dL High 70-[address] [facility] Comment on above: Order Comment: Waive d Testing in the ED is performed under the ED CLIA certificate #[id number]. Result Comment: [email or web address] Performed By: #### L [id number] ####[facility] ([facility])[address] [place] [address] Glucose [Mass/Vol] 310 mg/dL High 70-[address] [facility] Comment on above: Order Comment: Waive d Testing in the ED is performed under the ED CLIA certificate #[id number]. Result Comment: [email or web address] Performed By: #### L [id number] ####[facility] (BE[facility])[address] [place] [address] Glucose [Mass/Vol] 235 mg/dL High 70-105 [facility] Comment on above: Order Comment: Waive d Testing in the ED is performed under the ED CLIA certificate #[id number]. Result Comment: [email or web address] Performed By: #### L [id number] ####[facility] ([facility])[address] [facility] [address] 30on 05-16-2025 30 The patient is Moderately Stable - Low [...] and behaviors that affect risk of falls Lebeau fall precautions as indicated by assessment Educate [...] by Cee Watkins RN Outcome: Progressing Flowsheets (Take (more content not included)... Normal [facility] 30 Daily Case Managemen t Update Barriers to Discharge: Pending clinical course and clearance. POD #1 TAVR. Needs PT & OT to reevaluate to make sure patient can still return home. Slight ARTUR. ECHO today. Blood cultures pending. Diet: Dietary Orders (From admission, onward) Start Ordered 05/16/25 1553 Special Kitchen Request Once Comments: [place] burger with cheese On the side: tomato, [...] Request Once Comments: Omelet with green pepper, norwegian cheese and onion, 1 slice wheat toast, [...] Orders (From admission, onward) Start Ordered 05/10/25 041 PT eval and treat Until therapy completed Question: Reason for PT? Answer: weakness 05/10/25 0411 05/10/25 0411 OT eval and treat Until therapy completed Question: Reason for OT? Answer: gait abnormality 05/10/25 0411 Normal [facility] APTTon 05-16-2025 ACTIVATED PARTIAL THROMBOPLASTIN TIME IN PPP BY COAGULATION ASSAY 77.8 Seconds High 25.0-35.0 [facility] Comment on above: Result Comment: Clin ical significance of the APTT is questionable in the presence of heparin. Performed By: #### L [id number] #### [facility] ([facility]) [address] [place] [address] ACTIVATED PARTIAL THROMBOPLASTIN TIME IN PPP BY COAGULATION ASSAY 63.8 Seconds High 25.0-35.0 [facility] Comment on above: Result Comment: Clin ical significance of the APTT is questionable in the presence of heparin. Performed By: #### L [id number] #### [facility] ([facility]) [address] [place] [address] BASIC METABOLIC PANELon Anion gap [Moles/Vol] 19 mmol/L Normal 7-20 [facility] Comment on above: Performed By: #### L [id number] #### [facility] ([facility]) [address] [place] [address] Calcium [Mass/Vol] 8.6 mg/dL Normal 8.6-10.[address] [facility] Comment on above: Performed By: #### L [id number] #### [facility] ([facility]) [address] [place] [address] Chloride [Moles/Vol] 103 mmol/L Normal 98-107 [facility] Comment on above: Performed By: #### L [id number] #### [facility] ([facility]) [address] [place] [address] CO2 [Moles/Vol] 22 mmol/L Normal 21-31 [facility] Comment on above: Performed By: #### L [id number] #### [facility] ([facility]) [address] [place] [address] Creatinine [Mass/Vol] 1.71 mg/dL High 0.70-1.30 [facility] Comment on above: Performed By: #### L [id number] #### [facility] ([facility]) [address] [place] [address] GLOMERULAR FILTRATION RATE ML/MIN/1.73 SQ M.PREDICTED 38.5 mL/min/1.73m*2 Low >60.0 [facility] Comment on above: Result Comment: The [facility]???s estimated glomerular filtration rate (eGFR) will no [...] disproportionately affect any one group of individuals. Performed By: #### L [id number] #### [facility] ([facility]) [address] [place] [address] Glucose [Mass/Vol] 222 mg/dL High 70-[address] [facility] [facility] Comment on above: Performed By: #### L [id number] #### [facility] ([facility]) [address] [place] [address] Potassium [Moles/Vol] 4.2 mmol/L Normal 3.5-5.1 [facility] Comment on above: Performed By: #### L [id number] #### [facility] ([facility]) [address] [place] [address] Sodium [Moles/Vol] 140 mmol/L Normal 136-[address] [facility] Comment on above: Performed By: #### L [id number] #### [facility] [[email or web address] ([facility]) [address] [place] [address] Urea nitrogen [Mass/Vol] 41 mg/dL High 7-25 [facility] Comment on above: Performed By: #### L [id number] #### [facility] ([facility]) [address] [place] [address] UREA NITROGEN/CREATININE (MASS RATIO) IN SER/PLAS 24.0 Normal [facility] Comment on above: Performed By: #### L [id number] #### [facility] ([facility]) [address] [place] [address] BLOOD CULTUREon 05-16-2025 Bacteria identified Cx Nom (Bld) No growth at 5 days [facility] Comment on above: Order Comment: From a different site than #1. Performed By: #### L [id number] ####[facility] [place] [address] Performed By: #### L [id number] #### [facility] [address] [place] [address] CBCon 05-16-2025 Erythrocyte distribution width (RBC) [Ratio] 19.5 % High 11.5-15.0 [facility] Comment on above: Performed By: #### L [id number] #### [facility] ([facility]) [address] [place] [address] ERYTHROCYTE MEAN CORPUSCULAR HEMOGLOBIN CONCENTRATION (G/DL) BY AUTOMATED 30.2 g/dL Low 32.0-35.0 [facility] Comment on above: Performed By: #### L [id number] #### [facility] ([facility]) [address] [place] [address] Hematocrit (Bld) [Volume fraction] 33.1 % Low 39.0-50.0 [facility] Comment on above: Performed By: #### L [id number] #### [facility] ([facility]) [address] [place] [address] Hemoglobin (Bld) [Mass/Vol] 10.0 g/dL Low 13.0-17.0 [facility] Comment on above: Performed By: #### L [id number] #### [facility] ([facility]) [address] [place] [address] MCH (RBC) [Entitic mass] 25.4 pg Low 27.0-33.0 [facility] Comment on above: Performed By: #### L [id number] #### [facility] ([facility]) [address] [place] [address] MCV (RBC) [Entitic vol] 84.0 fL Normal 82.0-98.0 [facility] Comment on above: Performed By: #### L [id number] #### [facility] ([facility]) [address] [place] [address] PLATELETS (10*3/UL) IN BLOOD AUTOMATED COUNT 306 10*3/uL Normal 150-400 [facility] Comment on above: Performed By: #### L [id number] #### [facility] ([facility]) [address] [place] [address] RBC (Bld) [#/Vol] 3.94 10*6/uL Low 4.20-5.70 [facility] Comment on above: Performed By: #### L [id number] #### [facility] ([facility]) [address] [place] [address] WBC (Bld) [#/Vol] 14.93 10*3/uL High 4.00-10.60 [facility] Comment on above: Performed By: #### L [id number] #### [facility] ([facility]) [address] [place] [address] Orders Onlyon 05-16-2025 Orders Only [id number] Nadir Beth 1940 M Date Provider Department Center 05/16/2025 [facility] LAB HI HeartVAS No family history on file Normal [facility] POCT GLUCOSE METER UNSOLICIT ED RESULTSon 05-16-2025 Glucose [Mass/Vol] 374 mg/dL High 70-[address] [facility] Comment on above: Order Comment: Waive d Testing in the ED is performed under the ED CLIA certificate #[id number]. Result Comment: [email or web address] Performed By: #### L [id number] #### [facility] [[email or web address] ([facility]) [address] [place] [address] Glucose [Mass/Vol] 292 mg/dL High 70-[address] [facility] Comment on above: Order Comment: Waive d Testing in the ED is performed under the ED CLIA certificate #[id number]. Result Comment: [email or web address] Performed By: #### L [id number] #### [facility] ([facility]) [address] [place] [address] Glucose [Mass/Vol] 254 mg/dL High 70-[address] [facility] Comment on above: Order Comment: Waive d Testing in the ED is performed under the ED CLIA certificate #[id number]. Result Comment: mmol den3 Performed By: #### L [id number] #### [facility] ([facility]) [address] [place] [address] Glucose [Mass/Vol] 272 mg/dL High 70-[address] [facility] Comment on above: Order Comment: Waive d Testing in the ED is performed under the ED CLIA certificate #[id number]. Result Comment: mmol den3 Performed By: #### L [id number] #### [facility] ([facility]) [address] [place] [address] 30on 05-15-2025 30 Daily Case Managemen t Update Multidisciplinary rounds have been completed. Barriers to Discharge: Patient to go for TAVR Today. Discharge dispo: pending clinical course, Prior to Operation PT/OT rec Patient is able to return to prior living environment (Presents from SNF). Patient is from [facility], with tentative plan to return when medically ready. Diet: Dietary Orders (From admission, onward) Start Ordered 05/15/25 0001 Diet NPO Diet effective midnight Comments: Sips with medications Question: Reason for NPO: Answer: Operation/Procedure 05/14/25 1521 05/14/25 0631 Special Kitchen Request Once Comments: Omelet with green pepper, norwegian cheese and onion, 1 slice wheat toast, [...] for OT? Answer: gait abnormality 05/10/25 0411 Normal [facility] 30 The patient is Moderately Stable - Low [...] chronic conditions and comorbid symptoms for stability, deterioration, or improvement Update acute care plan with appropriate [...] over the next 3 months Outcome: Progressing Normal [facility] APTTon 05-15-2025 ACTIVATED PARTIAL THROMBOPLASTIN TIME IN PPP BY COAGULATION ASSAY 73.2 Seconds High 25.0-35.0 [facility] Comment on above: Result Comment: Clin ical significance of the APTT is questionable in the presence of heparin. Performed By: #### L [id number] #### [facility] ([facility]) [address] [place] [address] ACTIVATED PARTIAL THROMBOPLASTIN TIME IN PPP BY COAGULATION ASSAY 51.8 Seconds High 25.0-35.0 [facility] Comment on above: Result Comment: Clin ical significance of the APTT is questionable in the presence of heparin. Performed By: #### L [id number] #### [facility] ([facility]) [address] [place] [address] BASIC METABOLIC PANELon Anion gap [Moles/Vol] 16 mmol/L Normal 7-20 [facility] Comment on above: Performed By: #### L [id number] #### [facility] ([facility]) [address] [place] [address] Calcium [Mass/Vol] 8.9 mg/dL Normal 8.6-10.[address] [facility] Comment on above: Performed By: #### L [id number] #### [facility] ([facility]) [address] [place] [address] Chloride [Moles/Vol] 99 mmol/L Normal 98-107 [facility] Comment on above: Performed By: #### L [id number] #### [facility] ([facility]) [address] [place] [address] CO2 [Moles/Vol] 27 mmol/L Normal 21-31 [facility] Comment on above: Performed By: #### L [id number] #### [facility] ([facility]) [address] [place] [address] Creatinine [Mass/Vol] 1.61 mg/dL High 0.70-1.30 [facility] Comment on above: Performed By: #### L [id number] #### [facility] ([facility]) [address] [place] [address] GLOMERULAR FILTRATION RATE ML/MIN/1.73 SQ M.PREDICTED 41.4 mL/min/1.73m*2 Low >60.0 [facility] Comment on above: Result Comment: The [facility]???s estimated glomerular filtration rate (eGFR) will no [...] disproportionately affect any one group of individuals. Performed By: #### L [id number] #### [facility] ([facility]) [address] [place] [address] Glucose [Mass/Vol] 255 mg/dL High 70-[address] [facility] Comment on above: Performed By: #### L [id number] #### [facility] ([facility]) [address] [place] [address] Potassium [Moles/Vol] 4.5 mmol/L Normal 3.5-5.1 [facility] Comment on above: Performed By: #### L [id number] #### [facility] ([facility]) [address] [place] [address] Sodium [Moles/Vol] 137 mmol/L Normal 136-[address] [facility] Comment on above: Performed By: #### L [id number] #### [facility] [address] [place] [address] Urea nitrogen [Mass/Vol] 34 mg/dL High 7-25 [facility] Comment on above: Performed By: #### L [id number] #### [facility] ([facility]) [address] [place] [address] UREA NITROGEN/CREATININE (MASS RATIO) IN SER/PLAS 21.1 Normal [facility] Comment on above: Performed By: #### L [id number] #### [facility] [address] [place] [address] CBCon 05-15-2025 Erythrocyte distribution width (RBC) [Ratio] 19.0 % High 11.5-15.0 [facility] Comment on above: Performed By: #### L [id number] #### [facility] [address] [place] [address] ERYTHROCYTE MEAN CORPUSCULAR HEMOGLOBIN CONCENTRATION (G/DL) BY AUTOMATED 30.7 g/dL Low 32.0-35.0 [facility] Comment on above: Performed By: #### L [id number] #### [facility] [address] [place] [address] Hematocrit (Bld) [Volume fraction] 33.6 % Low 39.0-50.0 [facility] Comment on above: Performed By: #### L [id number] #### [facility] ([facility]) [address] [place] [address] Hemoglobin (Bld) [Mass/Vol] 10.3 g/dL Low 13.0-17.0 [facility] Comment on above: Performed By: #### L [id number] #### [facility] ([facility]) [address] [place] [address] MCH (RBC) [Entitic mass] 25.2 pg Low 27.0-33.0 [facility] Comment on above: Performed By: #### L [id number] #### [facility] ([facility]) [address] [place] [address] MCV (RBC) [Entitic vol] 82.4 fL Normal 82.0-98.0 [facility] Comment on above: Performed By: #### L [id number] #### [facility] ([facility]) [address] [place] [address] PLATELETS (10*3/UL) IN BLOOD AUTOMATED COUNT 306 10*3/uL Normal 150-400 [facility] Comment on above: Performed By: #### L [id number] #### [facility] ([facility]) [address] [place] [address] RBC (Bld) [#/Vol] 4.08 10*6/uL Low 4.20-5.70 [facility] Comment on above: Performed By: #### L [id number] #### [facility] ([facility]) [address] [place] [address] WBC (Bld) [#/Vol] 12.04 10*3/uL High 4.00-10.60 [facility] Comment on above: Performed By: #### L [id number] #### [facility] ([facility]) [address] [place] [address] HPon 05-15-2025 -- Attestation signed by García Muir MD at 05/16/2025 6:39 PM I reviewed the salient portions of the patient history. I have seen and examined the patient during rounds with the resident/fellow Bachar. I repeated the stephenson components of the exam. Agree with the noted assessment and plan. García Muir MD Adult ICU History & Physical Patient - Nadir Beth Age - 85 y.[facility]. [facility] 1940 [id number] Date of Admission - 05/10/2025 2:37 AM History of Present Illness Nadir Beth is an 85 y.o. male with a PMH of HFpEF, paroxysmal A-fib on Xarelto, CVA, T2DM, hypertension, renal artery stenosis left renal stent, and hyperlipidemia who was admitted as a direct transfer from [place] on 05/10/2025 for acute on chronic heart failure. 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 He presented to the ED on the advice of his physician following an increase in lower extremity edema with associated labs showing a BNP 6200. In the [place] ED he was found to have pulmonary vascular congestion with right sided pleural effusion on chest x-ray, and found to be hypertensive at 190/68, initially managed medically with lasix and antihypertensives prior to transfer. At [facility] [[email or web address]] echo was performed which was unable to [...] (163 lb). His temporal temperature is 36.6 ???C (97.9 ???F). His blood pressure is 156/70 and his pulse is 95. His respiration is 16 and oxygen saturation is 98%. Intake/Output Summary (Last 24 hours) at 05/15/2025 1451 Last data filed at 05/15/2025 1429 Gross per 24 hour Intake 480 ml Output 610 ml Net -130 ml Temp: [36.4 ???C (97.5 ???F)-36.6 ???C (97.9 ???F)] 36.6 ???C (97.9 ???F) Heart Rate: [66-98] 95 Resp: [14-23] 16 [...] 100 99 < > 101 CO2 mmol/L 2 (more content not included)... [facility] HP H&P reviewed. The patient was examined and [...] family members and they agreed to TAVR. [facility] NURSNOTEon 05-15-2025 NURSNOTE Report called to Karen OTERO on MICU. [facility] OPNOTEon 05-15-2025 OPNOTE TAVR Operative Note Date: 05/15/2025 Location: [facility] VASCULAR LAB (Cath) Name: Nadir [...] the right common femoral artery using two 6-Azerbaijani ProGlide devices. Angio-Seal vascular closure in the left common femoral artery. Placement of SENTINEL cerebral embolic protection device. OPERATORS: Interventional Cardiology Overhead Crane Truck Loader: Claribel Cisneros MD Cardiac Surgery Overhead Crane Truck Loader: Negro Abdullahi MD Packer Denture Interventional Cardiology Overhead Crane Truck Loader: Aissatou Hughes METHODS: Procedure was explained to the patient with risks and benefits. he signed informed consent. he was brought to stores laborer in a fasting state. The procedure was performed in the cardiac stores laborer under conscious sedation. The right wrist area was prepped and draped in usual fashion. Access was obtained using ultrasound guidance and micropuncture technique in the right radial artery and a 6-Azerbaijani x 11 cm Hydrophilic sheath was placed. Verapamil was given through the sheath. Both groin areas, and the right neck area were prepped and draped in usual fashion. Ultrasound guidance was used for micropuncture access in the right internal jugular vein and a 6-Azerbaijani x 11 cm introducer sheath was secured in place. Micropuncture technique and ultrasound guidance were used for access in the right common femoral artery and inner cannula angiography was performed followed by upsizing to a 6-Azerbaijani x 11 cm sheath. The same was done for the access in the left common femoral artery. At this time, we proceeded with the preclosure in the right common femoral artery using 2 crossing Perclose devices and the access was then upsized over a wire to a 10-Azerbaijani sheath. A 5-Azerbaijani balloon-tipped pacemaker wire was advanced through the internal jugular vein sheath to the right ventricular apex and adequate capture was confirmed. Heparin was given intravenously and therapeutic ACT confirmed during the rest of the procedure and additional heparin given as needed. Through the left common femoral sheath, an angled 6-Azerbaijani pigtail catheter was then advanced to the ascending aorta and placed in the noncoronary cusp. Aortic root angiography was performed in the coplanar view as determined by prior CT scan measurements. A 6-Azerbaijani IM diagnostic catheter was then advanced through the right radial sheath and then navigated using an 0.035 inch wire to the ascending aorta and this was used to place an exchange length Grandslam 0.014 inch wire. The wire was advanced to the left carotid artery. A [place] device was then prepped using standard techniques and then advanced. The proximal filter was deployed in the innominate artery followed by deployment of the distal filter. The [place] device was then secured in place. The right common femoral access was then upsized using an exchange length Lunderquist wire [which was placed through a multipurpose catheter] to the 14-Azerbaijani Le E-sheath. The sheath was secured in place. A 6-Azerbaijani AL1 diagnostic catheter was advanced via the E-sheath, and using a straight stiff Glidewire, the aortic valve was crossed and the catheter was advanced in the left ventricular cavity, and using an exchange length J-wire, a 6-Azerbaijani angled pigtail catheter was advanced to make [...] The delivery catheter was retracted. The delivery c (more content not included)... [facility] POCT GLUCOSE METER UNSOLICIT ED RESULTSon 05-15-2025 Glucose [Mass/Vol] 193 mg/dL High 70-[address] [facility] Comment on above: Order Comment: Waive d Testing in the ED is performed under the ED CLIA certificate #[id number]. Result Comment: [email or web address] Performed By: #### L [id number] #### [facility] ([facility]) [address] [place] [address] Glucose [Mass/Vol] 334 mg/dL High 70-[address] [facility] Comment on above: Order Comment: Patie nt had pre procedure medications already for cath Result Comment: [email or web address] Performed By: #### L [id number] ####[facility] ([facility])[address] [facility] [place] [address] Glucose [Mass/Vol] 288 mg/dL High 70-[address] [facility] Comment on above: Order Comment: Waive d Testing in the ED is performed under the ED CLIA certificate #[id number]. Result Comment: [email or web address] Performed By: #### L [id number] #### [facility] ([employer]) [address] [place] [address] Glucose [Mass/Vol] 351 mg/dL High 70-[address] [facility] Comment on above: Order Comment: Waive d Testing in the ED is performed under the ED CLIA certificate #[id number]. Result Comment: clar com Performed By: #### L [id number] #### [facility] ([facility]) [address] [facility] [place] [address] 30on 05-14-2025 30 Daily Case Managemen t Update Multidisciplinary rounds have been completed. Barriers [...] is for patient to discharge to [facility] when medically ready. Diet: Dietary Orders (From admission, onward) Start Ordered 05/14/25 0631 Special Kitchen Request Once Comments: Omelet with green pepper, norwegian cheese and onion, 1 slice wheat toast, [...] low fat, low cholesterol) 05/11/25 1134 05/10/25 180 Special Kitchen Request Once Comments: Please deliver on last round! Hot turkey sandwich with mashed potatoes, green beans, sugar free ice cream and a diet coke 05/10/251806 Physician Expected Discharge Date: 05/14/2025 Discharge Delays: [...] for OT? Answer: gait abnormality 05/10/25 0411 Normal [facility] 30 The patient is Moderately Stable - Low [...] over the next 3 months Outcome: Progressing Normal [facility] APTTon 05-14-2025 ACTIVATED PARTIAL THROMBOPLASTIN TIME IN PPP BY COAGULATION ASSAY 57.1 Seconds High 25.0-35.0 [facility] Comment on above: Result Comment: Clin ical significance of the APTT is questionable in the presence of heparin. Performed By: #### L [id number] #### [facility] ([facility]) [address] [place] [address] ACTIVATED PARTIAL THROMBOPLASTIN TIME IN PPP BY COAGULATION ASSAY 33.6 Seconds Normal 25.0-35.0 [facility] Comment on above: Order Comment: Basel ine aPTT before initiating heparin infusion. Result Comment: Clin ical significance of the APTT is questionable in the presence of heparin. Performed By: #### L [id number] ####[facility] ([facility])[address] [place] [address] BASIC METABOLIC PANELon 04-17 Anion gap [Moles/Vol] 13 mmol/L Normal 7-20 [facility] Comment on above: Performed By: #### L [id number] #### [facility] ([facility]) [address] [place] [address] Calcium [Mass/Vol] 8.4 mg/dL Low 8.6-10.[address] [facility] Comment on above: Performed By: #### L [id number] #### [facility] ([facility]) [address] [place] [address] Chloride [Moles/Vol] 100 mmol/L Normal 98-107 [facility] Comment on above: Performed By: #### L [id number] #### [facility] ([facility]) [address] [place] [address] CO2 [Moles/Vol] 29 mmol/L Normal 21-31 [facility] Comment on above: Performed By: #### L [id number] #### [facility] ([facility]) [address] [place] [address] Creatinine [Mass/Vol] 1.74 mg/dL High 0.70-1.30 [facility] Comment on above: Performed By: #### L [id number] #### [facility] ([facility]) [address] [place] [address] GLOMERULAR FILTRATION RATE ML/MIN/1.73 SQ M.PREDICTED 37.7 mL/min/1.73m*2 Low >60.0 [facility] Comment on above: Result Comment: The [facility]???s estimated glomerular filtration rate (eGFR) will no [...] disproportionately affect any one group of individuals. Performed By: #### L [id number] #### [facility] ([facility]) [address] [place] [address] Glucose [Mass/Vol] 186 mg/dL High 70-[address] [facility] Comment on above: Performed By: #### L [id number] #### [facility] ([facility]) [address] [place] [address] Potassium [Moles/Vol] 3.8 mmol/L Normal 3.5-5.1 [facility] Comment on above: Performed By: #### L [id number] #### [facility] ([facility]) [address] [place] [address] Sodium [Moles/Vol] 138 mmol/L Normal 136-[address] [facility] Comment on above: Performed By: #### L [id number] #### [facility] ([facility]) [address] [place] [address] Urea nitrogen [Mass/Vol] 34 mg/dL High 7-25 [facility] Comment on above: Performed By: #### L [id number] #### [facility] ([facility]) [address] [facility] [place] [address] UREA NITROGEN/CREATININE (MASS RATIO) IN SER/PLAS 19.5 Normal [facility] Comment on above: Performed By: #### L [id number] #### [facility] ([facility]) [address] [place] [address] PLATELET COUNTon 05-14-2025 PLATELETS (10*3/UL) IN BLOOD AUTOMATED COUNT 297 10*3/uL Normal 150-400 [facility] Comment on above: Performed By: #### L [id number] #### [facility] ([facility]) [address] [facility] [place] [address] POCT GLUCOSE METER UNSOLICIT ED RESULTSon 05-14-2025 Glucose [Mass/Vol] 303 mg/dL High 70-[address] [facility] Comment on above: Order Comment: Waive d Testing in the ED is performed under the ED CLIA certificate #[id number]. Result Comment: [email or web address] Performed By: #### L [id number] #### [facility] [address] [facility] [place] [address] Glucose [Mass/Vol] 254 mg/dL High 70-[address] [facility] Comment on above: Order Comment: Waive d Testing in the ED is performed under the ED CLIA certificate #[id number]. Result Comment: [email or web address] Performed By: #### L [id number] #### [facility] [address] [place] [address] Glucose [Mass/Vol] 225 mg/dL High 70-[address] [facility] Comment on above: Order Comment: Waive d Testing in the ED is performed under the ED CLIA certificate #[id number]. Result Comment: oope [email or web address] Performed By: #### L [id number] ####[facility] [[email or web address]] HOSPITAL LAB (BEAKER)[address] [place] [address] Glucose [Mass/Vol] 209 mg/dL High 70-[address] [facility] Comment on above: Order Comment: Waive d Testing in the ED is performed under the ED CLIA certificate #[id number]. Result Comment: oope rac Performed By: #### L [id number] ####[facility] ([facility])[address] [place] [address] 30on 05-13-2025 30 The patient is Moderately Stable - Low [...] over the next 3 months Outcome: Progressing Normal [facility] BASIC METABOLIC PANELon 04-16 Anion gap [Moles/Vol] 14 mmol/L Normal 7-20 [facility] Comment on above: Performed By: #### L [id number] #### [facility] ([facility]) [address] [place] [address] Calcium [Mass/Vol] 8.5 mg/dL Low 8.6-10.[address] [facility] Comment on above: Performed By: #### L [id number] #### [facility] ([facility]) [address] [place] [address] Chloride [Moles/Vol] 99 mmol/L Normal 98-107 [facility] Comment on above: Performed By: #### L [id number] #### [facility] ([facility]) [address] [place] [address] CO2 [Moles/Vol] 29 mmol/L Normal 21-31 [facility] Comment on above: Performed By: #### L [id number] #### [facility] ([facility]) [address] [place] [address] Creatinine [Mass/Vol] 1.65 mg/dL High 0.70-1.30 [facility] Comment on above: Performed By: #### L [id number] #### [facility] ([facility]) [address] [place] [address] GLOMERULAR FILTRATION RATE ML/MIN/1.73 SQ M.PREDICTED 40.2 mL/min/1.73m*2 Low >60.0 [facility] Comment on above: Result Comment: The [facility]???s estimated glomerular filtration rate (eGFR) will no [...] disproportionately affect any one group of individuals. Performed By: #### L [id number] #### [facility] ([facility]) [address] [place] [address] Glucose [Mass/Vol] 206 mg/dL High 70-[address] [facility] Comment on above: Performed By: #### L [id number] #### [facility] ([facility]) [address] [place] [address] Potassium [Moles/Vol] 3.5 mmol/L Normal 3.5-5.1 [facility] Comment on above: Performed By: #### L [id number] #### [facility] [address] [place] [address] Sodium [Moles/Vol] 138 mmol/L Normal 136-[address] [facility] Comment on above: Performed By: #### L [id number] #### [facility] [address] [place] [address] Urea nitrogen [Mass/Vol] 32 mg/dL High 7-25 [facility] Comment on above: Performed By: #### L [id number] #### [facility] ([facility]) [address] [place] [address] UREA NITROGEN/CREATININE (MASS RATIO) IN SER/PLAS 19.4 Normal [facility] Comment on above: Performed By: #### L [id number] #### [facility] [address] [place] [address] CBCon 05-13-2025 Erythrocyte distribution width (RBC) [Ratio] 18.9 % High 11.5-15.0 [facility] Comment on above: Performed By: #### L [id number] #### [facility] ([facility]) [address] [place] [address] ERYTHROCYTE MEAN CORPUSCULAR HEMOGLOBIN CONCENTRATION (G/DL) BY AUTOMATED 31.3 g/dL Low 32.0-35.0 [facility] Comment on above: Performed By: #### L [id number] #### [facility] ([facility]) [address] [place] [address] Hematocrit (Bld) [Volume fraction] 31.3 % Low 39.0-50.0 [facility] Comment on above: Performed By: #### L [id number] #### [facility] ([facility]) [address] [place] [address] Hemoglobin (Bld) [Mass/Vol] 9.8 g/dL Low 13.0-17.0 [facility] Comment on above: Performed By: #### L [id number] #### [facility] ([facility]) [address] [place] [address] MCH (RBC) [Entitic mass] 25.8 pg Low 27.0-33.0 [facility] Comment on above: Performed By: #### L [id number] #### [facility] ([facility]) [address] [place] [address] MCV (RBC) [Entitic vol] 82.4 fL Normal 82.0-98.0 [facility] Comment on above: Performed By: #### L [id number] #### [facility] ([facility]) [address] [place] [address] PLATELETS (10*3/UL) IN BLOOD AUTOMATED COUNT 287 10*3/uL Normal 150-400 [facility] Comment on above: Performed By: #### L [id number] #### [facility] ([facility]) [address] [place] [address] RBC (Bld) [#/Vol] 3.80 10*6/uL Low 4.20-5.70 [facility] Comment on above: Performed By: #### L [id number] #### [facility] ([facility]) [address] [place] [address] WBC (Bld) [#/Vol] 10.18 10*3/uL Normal 4.00-10.60 [facility] Comment on above: Performed By: #### L [id number] #### [facility] ([facility]) [address] [place] [address] POCT GLUCOSE METER UNSOLICIT ED RESULTSon 05-13-2025 Glucose [Mass/Vol] 219 mg/dL High 70-[address] [facility] Comment on above: Order Comment: Waive d Testing in the ED is performed under the ED CLIA certificate #[id number]. Result Comment: [email or web address] [email or web address] Performed By: #### L [id number] #### [facility] ([facility]) [address] [place] [address] Glucose [Mass/Vol] 277 mg/dL High 70-[address] [facility] Comment on above: Order Comment: Kim nt had pre procedure medications already for cath Result Comment: [email or web address] [email or web address] Performed By: #### L [id number] ####[facility] ([facility])[address] [place] [address] Glucose [Mass/Vol] 274 mg/dL High 70-[address] [facility] Comment on above: Order Comment: Waive d Testing in the ED is performed under the ED CLIA certificate #[id number]. Result Comment: [email or web address] [email or web address] Performed By: #### L [id number] #### [facility] ([facility]) [address] [place] [address] Glucose [Mass/Vol] 222 mg/dL High 70-[address] [facility] Comment on above: Order Comment: Waive d Testing in the ED is performed under the ED CLIA certificate #[id number]. Result Comment: [email or web address] [email or web address] Performed By: #### L [id number] #### [facility] ([facility]) [address] [place] [address] 30on 05-12-2025 30 The patient is Moderately Stable - Low risk of patient condition declining or worsening The patient's goals for the shift include Comfort, rest The clinical goals for the shift include Stable vitals, comfort Normal [facility] 30 The patient is Moderately Stable - Low [...] over the next 3 months Outcome: Progressing Normal [facility] 30 The patient is Moderately Stable - Low [...] chronic conditions and comorbid symptoms for stability, deterioration, or improvement Collaborate with multidisciplinary team to address [...] over the next 3 months Outcome: Progressing Normal [facility] ANTI-XA (HEPARIN LEVEL)on HEPARIN UNFRACTIONATED (U/ML) IN PPP BY CHROMOGENIC METHOD 0.32 IU/mL Normal 0.3-0.7 [facility] Comment on above: Result Comment: Jessica roxaban and Apixaban will interfere with the anti Xa assay used to monitor UFH and LMWH. Performed By: #### L [id number] #### [facility] ([facility]) [address] [place] [address] HEPARIN UNFRACTIONATED (U/ML) IN PPP BY CHROMOGENIC METHOD 0.42 IU/mL Normal 0.3-0.7 [facility] Comment on above: Result Comment: [place] roxaban and Apixaban will interfere with the anti Xa assay used to monitor UFH and LMWH. Performed By: #### L [id number] ####[facility] ([facility])[address] [place] [address] BASIC METABOLIC PANELon 04-16 Anion gap [Moles/Vol] 14 mmol/L Normal 7-20 [facility] Comment on above: Performed By: #### L [id number] ####[facility] ([facility])[address] [place] [address] Calcium [Mass/Vol] 8.5 mg/dL Low 8.6-10.[address] [facility] Comment on above: Performed By: #### L [id number] ####[facility] ([facility])[address] [place] [address] Chloride [Moles/Vol] 99 mmol/L Normal 98-107 [facility] Comment on above: Performed By: #### L [id number] ####[facility] ([facility])[address] [place] [address] CO2 [Moles/Vol] 29 mmol/L Normal 21-31 [facility] Comment on above: Performed By: #### L [id number] ####[facility] [place] [address] Creatinine [Mass/Vol] 1.63 mg/dL High 0.70-1.30 [facility] Comment on above: Performed By: #### L [id number] ####[facility] [place] [address] GLOMERULAR FILTRATION RATE ML/MIN/1.73 SQ M.PREDICTED 40.8 mL/min/1.73m*2 Low >60.0 [facility] Comment on above: Result Comment: The [facility]???s estimated glomerular filtration rate (eGFR) will no [...] disproportionately affect any one group of individuals. Performed By: #### L [id number] ####[facility] [place] [address] Glucose [Mass/Vol] 191 mg/dL High 70-[address] [facility] Comment on above: Performed By: #### L [id number] ####[facility] ([facility])[address] [place] [address] Potassium [Moles/Vol] 3.5 mmol/L Normal 3.5-5.1 [facility] Comment on above: Performed By: #### L [id number] ####[facility] [place] [address] Sodium [Moles/Vol] 138 mmol/L Normal 136-[address] [facility] Comment on above: Performed By: #### L [id number] ####[facility] ([facility])[address] [place] [address] Urea nitrogen [Mass/Vol] 36 mg/dL High 7-25 [facility] Comment on above: Performed By: #### L [id number] ####[facility] ([facility])[address] [place] [address] UREA NITROGEN/CREATININE (MASS RATIO) IN SER/PLAS 22.1 Normal [facility] Comment on above: Performed By: #### L [id number] ####[facility] ([facility])[address] [place] [address] POCT GLUCOSE METER UNSOLICIT ED RESULTSon 05-12-2025 Glucose [Mass/Vol] 275 mg/dL High 70-[address] [facility] Comment on above: Order Comment: Waive d Testing in the ED is performed under the ED CLIA certificate #[id number]. Result Comment: [email or web address] [email or web address] Performed By: #### L [id number] ####[facility] ([facility])[address] [place] [address] Glucose [Mass/Vol] 285 mg/dL High 70-[address] [facility] Comment on above: Order Comment: Waive d Testing in the ED is performed under the ED CLIA certificate #[id number]. Result Comment: nkoc h4 Performed By: #### L [id number] #### [facility] ([facility]) [address] [place] [address] Glucose [Mass/Vol] 332 mg/dL High 70-[address] [facility] Comment on above: Order Comment: Waive d Testing in the ED is performed under the ED CLIA certificate #[id number]. Result Comment: nkoc h4 Performed By: #### L [id number] #### [facility] ([facility]) [address] [place] [address] Glucose [Mass/Vol] 214 mg/dL High 70-[address] [facility] Comment on above: Order Comment: Waive d Testing in the ED is performed under the ED CLIA certificate #[id number]. Result Comment: nkoc h4 Performed By: #### L [id number] #### [facility] ([facility]) [address] [place] [address] 30on 05-11-2025 30 The patient is Moderately Stable - Low risk of patient condition declining or worsening The patient's goals for the shift include comfort rest The clinical goals for the shift include VSS Over the shift, the patient did not make progress toward the following goals. Barriers to progression include. Recommendations to address these barriers include. Normal [facility] ANTI-XA (HEPARIN LEVEL)on HEPARIN UNFRACTIONATED (U/ML) IN PPP BY CHROMOGENIC METHOD 0.27 IU/mL Low 0.3-0.7 [facility] Comment on above: Result Comment: [place] roxaban and Apixaban will interfere with the anti Xa assay used to monitor UFH and LMWH. Performed By: #### L [id number] #### [facility] ([facility]) [address] [place] [address] HEPARIN UNFRACTIONATED (U/ML) IN PPP BY CHROMOGENIC METHOD 0.38 IU/mL Normal 0.3-0.7 [facility] Comment on above: Result Comment: [place] roxaban and Apixaban will interfere with the anti Xa assay used to monitor UFH and LMWH. Performed By: #### L [id number] ####[facility] ([facility])[address] [place] [address] HEPARIN UNFRACTIONATED (U/ML) IN PPP BY CHROMOGENIC METHOD 0.28 IU/mL Low 0.3-0.7 [facility] Comment on above: Result Comment: [place] roxaban and Apixaban will interfere with the anti Xa assay used to monitor UFH and LMWH. Performed By: #### L [id number] ####[facility] ([facility])[address] [place] [address] BASIC METABOLIC PANELon 04-16 Anion gap [Moles/Vol] 15 mmol/L Normal 7-20 [facility] Comment on above: Performed By: #### L [id number] #### [facility] [address] [place] [address] Calcium [Mass/Vol] 8.4 mg/dL Low 8.6-10.[address] [facility] Comment on above: Performed By: #### L [id number] #### [facility] ([facility]) [address] [place] [address] Chloride [Moles/Vol] 101 mmol/L Normal 98-107 [facility] Comment on above: Performed By: #### L [id number] #### [facility] ([facility]) [address] [place] [address] CO2 [Moles/Vol] 28 mmol/L Normal 21-31 [facility] Comment on above: Performed By: #### L [id number] #### [facility] ([facility]) [address] [place] [address] Creatinine [Mass/Vol] 1.56 mg/dL High 0.70-1.30 [facility] Comment on above: Performed By: #### L [id number] #### [facility] ([facility]) [address] [place] [address] GLOMERULAR FILTRATION RATE ML/MIN/1.73 SQ M.PREDICTED 43.0 mL/min/1.73m*2 Low >60.0 [facility] Comment on above: Result Comment: The [facility]???s estimated glomerular filtration rate (eGFR) will no [...] disproportionately affect any one group of individuals. Performed By: #### L [id number] #### [facility] ([facility]) [address] [place] [address] Glucose [Mass/Vol] 237 mg/dL High 70-[address] [facility] Comment on above: Performed By: #### L [id number] #### [facility] ([facility]) [address] [place] [address] Potassium [Moles/Vol] 4.2 mmol/L Normal 3.5-5.1 [facility] Comment on above: Performed By: #### L [id number] #### [facility] ([facility]) [address] [place] [address] Sodium [Moles/Vol] 140 mmol/L Normal 136-[address] [facility] Comment on above: Performed By: #### L [id number] #### [facility] ([facility]) [address] [place] [address] Urea nitrogen [Mass/Vol] 31 mg/dL High 7-25 [facility] Comment on above: Performed By: #### L [id number] #### [facility] ([facility]) [address] [place] [address] UREA NITROGEN/CREATININE (MASS RATIO) IN SER/PLAS 19.9 Normal [facility] Comment on above: Performed By: #### L [id number] #### [facility] ([facility]) [address] [place] [address] CBCon 05-11-2025 Erythrocyte distribution width (RBC) [Ratio] 19.0 % High 11.5-15.0 [facility] Comment on above: Performed By: #### L [id number] #### [facility] ([facility]) [address] [place] [address] ERYTHROCYTE MEAN CORPUSCULAR HEMOGLOBIN CONCENTRATION (G/DL) BY AUTOMATED 31.1 g/dL Low 32.0-35.0 [facility] Comment on above: Performed By: #### L [id number] #### [facility] [address] [place] [address] Hematocrit (Bld) [Volume fraction] 31.8 % Low 39.0-50.0 [facility] Comment on above: Performed By: #### L [id number] #### [facility] ([facility]) [address] [place] [address] Hemoglobin (Bld) [Mass/Vol] 9.9 g/dL Low 13.0-17.0 [facility] Comment on above: Performed By: #### L [id number] #### [facility] ([facility]) [address] [place] [address] MCH (RBC) [Entitic mass] 25.8 pg Low 27.0-33.0 [facility] Comment on above: Performed By: #### L [id number] #### [facility] ([facility]) [address] [place] [address] MCV (RBC) [Entitic vol] 82.8 fL Normal 82.0-98.0 [facility] Comment on above: Performed By: #### L [id number] #### [facility] ([facility]) [address] [place] [address] PLATELETS (10*3/UL) IN BLOOD AUTOMATED COUNT 312 10*3/uL Normal 150-400 [facility] Comment on above: Performed By: #### L [id number] #### [facility] ([facility]) [address] [place] [address] RBC (Bld) [#/Vol] 3.84 10*6/uL Low 4.20-5.70 [facility] Comment on above: Performed By: #### L [id number] #### [facility] ([facility]) [address] [place] [address] WBC (Bld) [#/Vol] 11.58 10*3/uL High 4.00-10.60 [facility] Comment on above: Performed By: #### L [id number] #### [facility] [address] [place] [address] CONSULTon 05-11-2025 CONSULT Reason For Consult aortic stenosis Referring Provider: Mesha Hughes MD History Of Present Illness Nadir Beth is a 85 y.o. male presenting with acute on chronic heart failure. He was found to have a BMP greater than [address] Youssef's office in [place] yesterday. He also had signs of congestive [...] he has had a stroke 4 weeks ago that manifested with difficulty speaking and lower leg paresis. He saw Dr. 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 Patient is now neurologically intact; they state the sx lasted for 2 days. Patient also had mildly elevated troponins on this admission, probably from chronic myocardial injury; troponin went from 21-26. Patient had cardiac catheterization today that reveals [...] 98 % -- 05/11/25 0800 149/57 36.5 ???C (97.7 ???F) Temporal 72 14 97 % -- 05/11/25 0600 138/54 -- -- 75 11 98 % -- 05/11/25 0547 -- -- -- -- -- -- 80 kg (176 lb 5.9 oz) 05/11/25 0400 147/61 36.6 ???C (97.9 ???F) -- 82 14 98 % -- 05/11/25 0200 135/60 -- -- 82 12 97 % -- 05/11/25 0000 127/50 36.5 ???C (97.7 ???F) -- 78 13 95 % -- 05/10/25 1738 134/60 -- -- 71 13 97 % -- 05/10/25 164 (more content not included)... Normal [facility] CTA ABDOMEN PELVIS W IV CONT KACEYTon 05-11-2025 CTA ABDOMEN PELVIS W IV CONTRAST CTA ABDOMEN PELVIS W IV CONTRAST 05/11/2025 [...] joint disease at L4-5 was mild anterolisthesis. IMPRESSION: Evidence of prior cholecystectomy. Prostate metallic seeds in place. Calcified granulomas in the spleen. 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 Electronically signed: Yenni Stafford MD. Normal [facility] Comment on above: Order Comment: Low d ose (half) contrast HEMOGLOBIN A1Con 05-11-2025 Glucose [Mass/Vol] 220 mg/dL Normal [facility] Comment on above: Performed By: #### L [id number] #### [facility] ([facility]) [address] [place] [address] HbA1c (Bld) [Mass fraction] 9.3 % High 4.0-6.0 [facility] Comment on above: Performed By: #### L [id number] #### [facility] ([facility]) [address] [place] [address] HPon 05-11-2025 HP Reason For Consult aortic stenosis Referring Provider: Mesha Hughes MD History Of Present Illness Nadir Beth is a 85 y.o. male presenting with acute on chronic heart failure. He was found to have a BMP greater than [address] Youssef's office in [place] yesterday. He also had signs of congestive [...] he has had a stroke 4 weeks ago that manifested with difficulty speaking and lower leg paresis. He saw Dr. 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 Patient is now neurologically intact; they state the sx lasted for 2 days. Patient also had mildly elevated troponins on this admission, probably from chronic myocardial injury; troponin went from 21-26. Patient had cardiac catheterization today that reveals [...] 98 % -- 05/11/25 0800 149/57 36.5 ???C (97.7 ???F) Temporal 72 14 97 % -- 05/11/25 0600 138/54 -- -- 75 11 98 % -- 05/11/25 0547 -- -- -- -- -- -- 80 kg (176 lb 5.9 oz) 05/11/25 0400 147/61 36.6 ???C (97.9 ???F) -- 82 14 98 % -- 05/11/25 0200 135/60 -- -- 82 12 97 % -- 05/11/25 0000 127/50 36.5 ???C (97.7 ???F) -- 78 13 95 % -- 05/10/25 1738 134/60 -- -- 71 13 97 % -- 05/10/25 164 (more content not included)... Normal [facility] HP H&P reviewed. The patient was examined and there are no changes to the H&P. Will proceed with RHC and coronary angiogram for acute on chronic HFpEF and aortic stenosis work up. Normal [facility] LIPID PANELon 05-11-2025 CHOL/HDL 2.7 mg/dL Normal [facility] Comment on above: Performed By: #### L [id number] ####[facility] ([employer])[address] [place] [address] Cholesterol [Mass/Vol] 187 mg/dL Normal 120-200 [facility] Comment on above: Performed By: #### L [id number] ####[facility] ([employer])[address] [place] [address] Magnesium [Mass/Vol] 93 mg/dL Normal <150 [facility] Comment on above: Result Comment: TRIG LYCERIDE REFERENCE RANGE: 20 YEARS AND OLDER CARDIOVASCULAR RISK LESS THAN 150 mg/dL LOW RISK 150 TO 199 mg/dL BORDERLINE RISK 200 mg/dL AND GREATER HIGH RISK Performed By: #### L [id number] ####[facility] ([facility])[address] [place] [address] Magnesium [Mass/Vol] 99 mg/dL Normal 0-160 [facility] Comment on above: Performed By: #### L [id number] ####[facility] ([facility])[address] [place] [address] Magnesium [Mass/Vol] 69 mg/dL Normal 23-92 [facility] Comment on above: Performed By: #### L [id number] ####[facility] ([facility])[address] [place] [address] NON HDL CHOL. (LDL+VLDL) 118 Normal [facility] Comment on above: Performed By: #### L [id number] ####[facility] ([facility])[address] [place] [address] TOTAL VLDL-C 19 mg/dL Normal 0-40 [facility] Comment on above: Performed By: #### L [id number] ####[facility] ([facility])[address] [place] [address] POCT GLUCOSE METER UNSOLICIT ED RESULTSon 05-11-2025 Glucose [Mass/Vol] 306 mg/dL High 70-[address] [facility] Comment on above: Order Comment: Waive d Testing in the ED is performed under the ED CLIA certificate #[id number]. Result Comment: [email or web address] [email or web address] Performed By: #### L [id number] ####[facility] ([facility])[address] [place] [address] Glucose [Mass/Vol] 348 mg/dL High 70-[address] [facility] Comment on above: Order Comment: Waive d Testing in the ED is performed under the ED CLIA certificate #[id number]. Result Comment: clar com Performed By: #### L [id number] #### [facility] ([facility]) [address] [place] [address] Glucose [Mass/Vol] 201 mg/dL High 70-[address] [facility] Comment on above: Order Comment: Waive d Testing in the ED is performed under the ED CLIA certificate #[id number]. Result Comment: [employer]Kl[employer] Performed By: #### L [id number] #### [facility] ([facility]) [address] [place] [address] Glucose [Mass/Vol] 224 mg/dL High 70-[address] [facility] Comment on above: Order Comment: Kim nt had pre procedure medications already for cath Result Comment: [employer]Kl[employer] Performed By: #### L [id number] ####[facility] ([facility])[address] [place] [address] 30on 05-10-2025 30 [facility] patient is Moderately Stable - Low [...] over the next 3 months Outcome: Progressing Normal [facility] 30 The patient is Moderately Stable - Low risk of patient condition declining or worsening The patient's goals for the shift include comfort The clinical goals for the shift include VSS Normal [facility] ANTI-XA (HEPARIN LEVEL)on HEPARIN UNFRACTIONATED (U/ML) IN PPP BY CHROMOGENIC METHOD 0.25 IU/mL Low 0.3-0.7 [facility] Comment on above: Result Comment: Jessica roxaban and Apixaban will interfere with the anti Xa assay used to monitor UFH and LMWH. Performed By: #### L [id number] #### [facility] ([facility]) [address] [place] [address] HEPARIN UNFRACTIONATED (U/ML) IN PPP BY CHROMOGENIC METHOD 0.21 IU/mL Low 0.3-0.7 [facility] Comment on above: Order Comment: Check anti-Xa level every 6 hours while on heparin infusion, or per protocol. Result Comment: [place] roxaban and Apixaban will interfere with the anti Xa assay used to monitor UFH and LMWH. Performed By: #### L [id number] ####[facility] ([facility])[address] [place] [address] APTTon 05-10-2025 ACTIVATED PARTIAL THROMBOPLASTIN TIME IN PPP BY COAGULATION ASSAY 34.1 Seconds Normal 25.0-35.0 [facility] Comment on above: Order Comment: Basel ine aPTT before initiating heparin infusion. Result Comment: Clin ical significance of the APTT is questionable in the presence of heparin. Performed By: #### L [id number] #### [facility] ([facility]) [address] [place] [address] B-TYPE NATRIURETIC PEPTIDEon 05-10-2025 Natriuretic peptide B (Bld) [Mass/Vol] 736 pg/mL High 0-100 [facility] Comment on above: Performed By: #### L [id number] #### [facility] ([facility]) [address] [place] [address] CBC WITH AUTO DIFFERENTIALon 05-10-2025 Basophils (Bld) [#/Vol] 0.04 10*3/uL Normal 0.00-0.20 [facility] Comment on above: Performed By: #### L [id number] #### [facility] ([facility]) [address] [place] [address] Basophils/100 WBC (Bld) 0.4 % Normal 0.0-1.0 [facility] Comment on above: Performed By: #### L [id number] #### [facility] ([facility]) [address] [place] [address] Eosinophils (Bld) [#/Vol] 0.15 10*3/uL Normal 0.00-0.50 [facility] Comment on above: Performed By: #### L [id number] #### [facility] ([facility]) [address] [place] [address] Eosinophils/100 WBC (Bld) 1.4 % Normal 0.0-6.0 [facility] Comment on above: Performed By: #### L [id number] #### [facility] ([facility]) [address] [place] [address] Erythrocyte distribution width (RBC) [Ratio] 19.2 % High 11.5-15.0 [facility] Comment on above: Performed By: #### L [id number] #### [facility] ([facility]) [address] [place] [address] ERYTHROCYTE MEAN CORPUSCULAR HEMOGLOBIN CONCENTRATION (G/DL) BY AUTOMATED 31.2 g/dL Low 32.0-35.0 [facility] Comment on above: Performed By: #### L [id number] #### [facility] ([facility]) [address] [place] [address] Hematocrit (Bld) [Volume fraction] 33.3 % Low 39.0-50.0 [facility] Comment on above: Performed By: #### L [id number] #### [facility] ([facility]) [address] [place] [address] Hemoglobin (Bld) [Mass/Vol] 10.4 g/dL Low 13.0-17.0 [facility] Comment on above: Performed By: #### L [id number] #### [facility] ([facility]) [address] [place] [address] Immature granulocytes (Bld) [#/Vol] 0.06 10*3/uL Normal 0.00-0.20 [facility] Comment on above: Performed By: #### L [id number] #### [facility] ([facility]) [address] [place] [address] Immature granulocytes/100 WBC (Bld) 0.6 % Normal 0.0-1.0 [facility] Comment on above: Performed By: #### L [id number] #### [facility] [address] [place] [address] Lymphocytes (Bld) [#/Vol] 0.86 10*3/uL Low 1.20-4.00 [facility] Comment on above: Performed By: #### L [id number] #### [facility] ([facility]) [address] [place] [address] Lymphocytes/100 WBC (Bld) 8.2 % Low 20.0-45.0 [facility] Comment on above: Performed By: #### L [id number] #### [facility] ([facility]) [address] [place] [address] MCH (RBC) [Entitic mass] 25.7 pg Low 27.0-33.0 [facility] Comment on above: Performed By: #### L [id number] #### [facility] ([facility]) [address] [place] [address] MCV (RBC) [Entitic vol] 82.2 fL Normal 82.0-98.0 [facility] Comment on above: Performed By: #### L [id number] #### [facility] [address] [place] [address] Monocytes (Bld) [#/Vol] 1.08 10*3/uL High 0.10-1.00 [facility] Comment on above: Performed By: #### L [id number] #### [facility] [address] [place] [address] Monocytes/100 WBC (Bld) 10.3 % Normal 5.0-12.0 [facility] Comment on above: Performed By: #### L [id number] #### [facility] ([facility]) [address] [place] [address] Neutrophils (Bld) [#/Vol] 8.31 10*3/uL High 1.60-7.60 [facility] Comment on above: Performed By: #### L [id number] #### [facility] ([facility]) [address] [place] [address] Neutrophils/100 WBC (Bld) 79.1 % High 40.0-72.0 [facility] Comment on above: Performed By: #### L [id number] #### [facility] ([facility]) [address] [place] [address] NRBC (PER 100 WBCS) BY AUTOMATED COUNT 0.0 % Normal 0 [facility] Comment on above: Performed By: #### L [id number] #### [facility] ([facility]) [address] [place] [address] PLATELETS (10*3/UL) IN BLOOD AUTOMATED COUNT 311 10*3/uL Normal 150-400 [facility] Comment on above: Performed By: #### L [id number] #### [facility] [address] [place] [address] RBC (Bld) [#/Vol] 4.05 10*6/uL Low 4.20-5.70 [facility] Comment on above: Performed By: #### L [id number] #### [facility] [address] [place] [address] WBC (Bld) [#/Vol] 10.50 10*3/uL Normal 4.00-10.60 [facility] Comment on above: Performed By: #### L [id number] #### [facility] ([facility]) [address] [place] [address] COMPREHENSIVE METABOLIC PANE Jaren 05-10-2025 Albumin [Mass/Vol] 3.5 g/dL Normal 3.5-5.[address] [facility] Comment on above: Performed By: #### L [id number] ####[facility] [place] [address] ALP [Catalytic activity/Vol] 72 U/L Normal 34-104 [facility] Comment on above: Performed By: #### L [id number] ####[facility] ([facility])[address] [place] [address] ALT [Catalytic activity/Vol] 7 U/L Normal 7-52 [facility] Comment on above: Performed By: #### L [id number] ####[facility] ([facility])[address] [place] [address] Anion gap [Moles/Vol] 16 mmol/L Normal 7-20 [facility] Comment on above: Performed By: #### L [id number] ####[facility] ([facility])[address] [place] [address] AST [Catalytic activity/Vol] 14 U/L Normal 13-39 [facility] Comment on above: Performed By: #### L [id number] ####[facility] ([facility])[address] [place] [address] Bilirubin [Mass/Vol] 0.4 mg/dL Normal 0.3-1.0 [facility] Comment on above: Performed By: #### L [id number] ####[facility] ([facility])[address] [place] [address] Calcium [Mass/Vol] 8.5 mg/dL Low 8.6-10.[address] [facility] Comment on above: Performed By: #### L [id number] ####[facility] ([facility])[address] [place] [address] Chloride [Moles/Vol] 101 mmol/L Normal 98-107 [facility] Comment on above: Performed By: #### L [id number] ####[facility] [place] [address] CO2 [Moles/Vol] 26 mmol/L Normal 21-31 [facility] Comment on above: Performed By: #### L [id number] ####[facility] [place] [address] Creatinine [Mass/Vol] 1.45 mg/dL High 0.70-1.30 [facility] Comment on above: Performed By: #### L [id number] ####[facility] ([facility])[address] [place] [address] GLOMERULAR FILTRATION RATE ML/MIN/1.73 SQ M.PREDICTED 46.9 mL/min/1.73m*2 Low >60.0 [facility] Comment on above: Result Comment: The [facility]???s estimated glomerular filtration rate (eGFR) will no [...] disproportionately affect any one group of individuals. Performed By: #### L [id number] ####[facility] ([facility])[address] [place] [address] Glucose [Mass/Vol] 156 mg/dL High 70-[address] [facility] Comment on above: Performed By: #### L [id number] ####[facility] ([facility])[address] [place] [address] Potassium [Moles/Vol] 3.6 mmol/L Normal 3.5-5.1 [facility] Comment on above: Performed By: #### L [id number] ####[facility] ([facility])[address] [place] [address] Protein [Mass/Vol] 6.2 g/dL Normal 6.0-8.[address] [facility] Comment on above: Performed By: #### L [id number] ####[facility] [place] [address] Sodium [Moles/Vol] 139 mmol/L Normal 136-145 [facility] Comment on above: Performed By: #### L [id number] ####[facility] ([facility])[address] [place] [address] Urea nitrogen [Mass/Vol] 28 mg/dL High 7-25 [facility] Comment on above: Performed By: #### L [id number] ####[facility] ([facility])[address] [place] [address] UREA NITROGEN/CREATININE (MASS RATIO) IN SER/PLAS 19.3 Normal [facility] Comment on above: Performed By: #### L [id number] ####[facility] ([facility])[address] [place] [address] CONSULTon 05-10-2025 CONSULT discharge planning: to return to [facility] Patient came to this admission from The [facility]. - Occupational Therapy Eval noting Patient is able to return to prior living environment - Physical Therapy Eval noting Patient is able to return to prior living environment - LDAs tab not listing any open wounds or closed skin issues - I/O wVital flowsheet noting Patient on Room Air at this [facility] - to The [facility] Erin confirmed Patient is from their facility, specifically their Snf unit (not ECF or WAN) discharge barriers: [] no insurance precert needed for any placement from this admission [] [facility] CONSULT -- Attestation signed by Azeem Green MD at 05/10/2025 7:15 PM I personally saw and evaluated the patient on rounds with the medical staff physician and agree with his assessment and plan as documented in the progress note from today Cardiology Consult Note Reason for Consult: Acute on chronic HFpEF, hypertensive urgency HPI: Nadir Beth is a 85 y.o. male with past medical history of A-fib on Xarelto, hypertension, HFpEF, CKD, recent history of CVA 4 months back, renal artery stenosis transferred from [facility] for acute on chronic heart failure. Patient had history of stroke 4 months back and was in rehab patient has been having progressive lower extremity edema for few days. Patient was advised to increase his Lasix from 20 to 40 mg and blood work was done which showed BNP 6214 and was advised to go to the ED. In [place] ED chest x-ray showed pulmonary vascular congestion [...] SpO2 Height Weight 05/10/25 1211 156/71 36.5 ???C (97.7 ???F) Temporal 75 13 95 % -- -- 05/10/25 1005 172/80 -- -- 89 -- -- -- -- 05/10/25 0752 (!) 178/92 36.6 ???C (97.9 ???F) Temporal 99 19 93 % -- -- 05/10/25 0725 -- -- Temporal -- -- -- -- -- 05/10/25 0600 (!) 188/95 -- -- 91 15 93 % -- -- 05/10/25 0526 -- -- -- -- -- -- -- 81 kg (178 lb 9.2 oz) 05/10/25 0500 (!) 190/68 -- -- 95 18 91 % -- -- 05/10/25 0400 174/80 36.6 ???C (97.9 ???F) -- 78 14 97 % -- -- 05/10/25 0300 -- -- -- -- -- -- 1.828 m (5' 11.97 ) 81 kg (178 lb 9.2 oz) 05/10/25 0252 (!) 189/89 36.5 ???C (97.7 ???F) -- 88 17 91 % -- -- Physical Examination: Physical Exam Cardiovascular: Rate and Rhythm: Normal rate. Rhythm irregular. Heart sounds: Murmur (Pansystolic murmur on aortic and mitral region) heard. Pulmonary: Effort: Pulmonary effort is normal. Breath sounds: Rales present. Abdominal: General: Abdomen is flat. Palp (more content not included)... Normal [facility] CONSULT Adult Nutrition Assessment: Name: Nadir Beth Date: [...] BUN 28 (H) 05/10/2025453 CREATININE 1.45 (H) 05/10/20254 NA 139 05/10/2025453 K 3.6 05/10/2025453 MG 2.0 05/10/2025453 HGB 10.4 (L) 05/10/2025453 WBC 10.50 05/10/2025453 Allergies: Allergies[2] Nutrition Problems: Swallowing Assessment: pt [...] have been providing sugar free foods. Family reported that it is harder pt to follow a heart healthy diet at rehab as there are a lot of desserts, pasta, potatoes, and bread. Family reported that pt does [...] of Nutrition and Dietetics (AND) and the [place] [employer] of Enteral and Parenteral Nutrition (ASPEN). [...] To reach the Clinical Dietitian, please utilize [employer] chat Wednesday-Wednesday from 8AM-4PM or call extension [phone]. For weekends (Wednesday-Wednesday) and holidays, the Clinical Dietitian can be reached via pager [phone]) from 9AM-3PM. The Clinical Nutrition Department is unable to respond to [employer] chat messages on Sundays and s. [1] History reviewed. No pertinent past medical history. [2] Allergies Allergen Reactions Aminolevulinic Acid Hcl Unknown Iodinated Contrast Media Unknown Nitroglycerin Other hypotension Simvastatin Unknown Normal [facility] Documentationon 05-10-2025 Documentation [id number] Nadir Beth 1940 M Date Provider Department Center 05/10/202595966-[facility] Comprehensiv Family History Problem Relation Age of Onset Coronary artery disease Father Family Status - Relation Status Age at Mother Father Normal [facility] HIGH SENSITIVITY TROPONIN Io n 05-10-2025 HS TROPONIN I (NG/L) 26 ng/L High <20 [facility] Comment on above: Performed By: #### L [id number] ####[facility] ([facility])[address] [place] [address] HS TROPONIN I (NG/L) 21 ng/L High <20 [facility] Comment on above: Performed By: #### L [id number] ####[facility] ([facility])[address] [place] [address] HS TROPONIN I (NG/L) 21 ng/L High <20 [facility] Comment on above: Performed By: #### L [id number] ####[facility] ([facility])[address] [place] [address] [facility] 05-10-2025 -- Attestation signed by Azeem Green MD at 05/10/2025 7:15 PM I personally saw and evaluated the patient on rounds with the medical staff physician and agree with his assessment and plan as documented in the progress note from today Cardiology Consult Note Reason for Consult: Acute on chronic HFpEF, hypertensive urgency HPI: Nadir Beth is a 85 y.o. male with past medical history of A-fib on Xarelto, hypertension, HFpEF, CKD, recent history of CVA 4 months back, renal artery stenosis transferred from [facility] for acute on chronic heart failure. Patient had history of stroke 4 months back and was in rehab patient has been having progressive lower extremity edema for few days. Patient was advised to increase his Lasix from 20 to 40 mg and blood work was done which showed BNP 6214 and was advised to go to the ED. In [place] ED chest x-ray showed pulmonary vascular congestion [...] SpO2 Height Weight 05/10/25 1211 156/71 36.5 ???C (97.7 ???F) Temporal 75 13 95 % -- -- 05/10/25 1005 172/80 -- -- 89 -- -- -- -- 05/10/25 0752 (!) 178/92 36.6 ???C (97.9 ???F) Temporal 99 19 93 % -- -- 05/10/25 0725 -- -- Temporal -- -- -- -- -- 05/10/25 0600 (!) 188/95 -- -- 91 15 93 % -- -- 05/10/25 0526 -- -- -- -- -- -- -- 81 kg (178 lb 9.2 oz) 05/10/25 0500 (!) 190/68 -- -- 95 18 91 % -- -- 05/10/25 0400 174/80 36.6 ???C (97.9 ???F) -- 78 14 97 % -- -- 05/10/25 0300 -- -- -- -- -- -- 1.828 m (5' 11.97 ) 81 kg (178 lb 9.2 oz) 05/10/25 0252 (!) 189/89 36.5 ???C (97.7 ???F) -- 88 17 91 % -- -- Physical Examination: Physical Exam Cardiovascular: Rate and Rhythm: Normal rate. Rhythm irregular. Heart sounds: Murmur (Pansystolic murmur on aortic and mitral region) heard. Pulmonary: Effort: Pulmonary effort is normal. Breath sounds: Rales present. Abdominal: General: Abdomen is flat. Palp (more content not included)... Normal [facility] MAGNESIUMon 05-10-2025 Magnesium [Mass/Vol] 2.0 mg/dL Normal 1.9-2.7 [facility] Comment on above: Performed By: #### L [id number] ####[facility] ([facility])[address] [place] [address] PLATELET COUNTon 05-10-2025 PLATELETS (10*3/UL) IN BLOOD AUTOMATED COUNT 349 10*3/uL Normal 150-400 [facility] Comment on above: Performed By: #### L [id number] #### [facility] ([employer]) [address] [place] [address] POCT GLUCOSE METER UNSOLICIT ED RESULTSon 05-10-2025 Glucose [Mass/Vol] 237 mg/dL High 70-[address] [facility] Comment on above: Order Comment: Waive d Testing in the ED is performed under the ED CLIA certificate #[id number]. Result Comment: [email or web address] [email or web address] Performed By: #### L [id number] #### [facility] ([employer]) [address] [place] [address] Glucose [Mass/Vol] 159 mg/dL High 70-[address] [facility] Comment on above: Order Comment: Waive d Testing in the ED is performed under the ED CLIA certificate #[id number]. Result Comment: iseg [email or web address] Performed By: #### L [id number] #### [facility] ([facility]) [address] [place] [address] Glucose [Mass/Vol] 172 mg/dL High 70-[address] [facility] Comment on above: Order Comment: Waive d Testing in the ED is performed under the ED CLIA certificate #[id number]. Result Comment: iseg [email or web address] Performed By: #### L [id number] ####[facility] ([facility])[address] [place] [address] Glucose [Mass/Vol] 186 mg/dL High 70-[address] [facility] Comment on above: Order Comment: Waive d Testing in the ED is performed under the ED CLIA certificate #[id number]. Result Comment: iseg [email or web address] Performed By: #### L [id number] #### [facility] ([facility]) [address] [place] [address] TSH3 REFLEX TO FT4on 025 THYROTROPIN (MIU/L) IN SER/PLAS BY DETECTION LIMIT <= 0.05 MIU/L 1.34 mIU/L Normal 0.34-5.60 [facility] Comment on above: Performed By: #### L [id number] #### [facility] ([facility]) [address] [place] [address] 36on 05-08-2025 36 Patient is reschedul ed for 07/11. Normal [facility] 36on 05-04-2025 36 Lvm to reschedule patients nephrology appointment. Advised at this time, the appointment will be cancelled and to call back to reschedule. Normal [facility] Telephoneon 05-04-2025 Telephone [id number] Nadir Beth 1940 M Date Provider Department Center 05/04/2025 RUTHIE OWEN CCC NEPHRO Comprehensiv Family History Problem Relation Age of Onset Coronary artery disease Father Family Status - Relation Status Age at Mother Father Normal [facility] Coding Queryon 05-02-2025 Coding Query Coding Query [...] also documented in the medical record: dc [id number]-old male who was admitted to the hospital [...] URIARTE To: Lay Dominguez RN; Sent: 05/02/2025 17:29:45 EDT Subject: RE: Coding Query Caller Name: NADIR BETH; Caller Number: Sergio , M MRI of the brain which showed probable T2 shine through and minimal acute/subacute ischemic lacunar infarcts. likely embolic Normal [facility] Coding Query Coding Query From: Lay Dominguez [...] Sergio , M CKD stage 3B Normal [facility] Coding Query Coding Query From: Lay Dominguez RN To: Anai URIARTE; Cc: Ginny Talamantes; Sent: 04/30/2025 07:17:51 EDT ! Subject: Coding Query Due Date/Time: 05/01/2025 07:17:00 EDT Caller Name: NADIR BETH; Caller Number: Sergio , M Documentation in the medical record indicates that [...] left lower leg limited to skin POA Normal [facility] Office Visiton 04-30-2025 Follow-up visit [id number] Nadir Beth 1940 M Date Provider Department Center 04/30/2025 CLARIBEL VILLALOBOS MILKA Dominguez [facility] Family History Problem Relation Age of Onset Coronary artery disease Father Family Status - Relation Status Age at Mother Father Level of Service:21554 [place] OFFICE/OUTPATIENT ESTABLISHED MOD MDM 30 MIN [facility] 36on 04-23-2025 36 Spoke with patient's daughter and scheduled him an apt to see Dr. Cisneros on 05/03/2025. [facility] 36on 04-18-2025 36 Patient's daughter called to make you aware he had a stroke and was admitted to [facility]. He will be discharged today to SNF. He's scheduled for heart cath with you 05/10. Daughter wants to know if you still want him to have this or if he needs pushed out? Do you need to see him prior to this? Please advise. Thanks. [facility] BMPon 04-18-2025 Anion gap [Moles/Vol] 12 mmol/L Normal 04-30 [facility] Comment on above: Performed By: #### 2 [id number] #### [facility] [address] [place] [address] BUN/Creat Ratio 22 No Units High 10-20 [facility] Comment on above: Performed By: #### 2 [id number] #### [facility] [address] [place] [address] Calcium [Mass/Vol] 8.7 mg/dL Low 8.9-11.1 [facility] Comment on above: Performed By: #### 2 [id number] #### [facility] [address] [place] [address] Chloride [Moles/Vol] 102 mmol/L Normal 101-111 [facility] Comment on above: Performed By: #### 2 [id number] #### [facility] [address] [place] [address] CO2 [Moles/Vol] 27 mmol/L Normal 21-31 [facility] Comment on above: Performed By: #### 2 [id number] #### [facility] [address] [place] [address] Creatinine [Mass/Vol] 1.6 mg/dL High 0.5-1.3 [facility] Comment on above: Performed By: #### 2 [id number] #### [facility] [address] [place] [address] Glucose [Mass/Vol] 233 mg/dL High 55-199 [facility] Comment on above: Performed By: #### 2 [id number] #### [facility] [address] [place] [address] Potassium [Moles/Vol] 4.3 mmol/L Normal 3.5-5.3 [facility] Comment on above: Performed By: #### 2 [id number] #### [facility] [address] [place] [address] Sodium [Moles/Vol] 137 mmol/L Normal 135-145 [facility] Comment on above: Performed By: #### 2 [id number] #### [facility] [address] [place] [address] Urea nitrogen [Mass/Vol] 35 mg/dL High 5-21 [facility] Comment on above: Performed By: #### 2 [id number] #### [facility] [address] [place] [address] CBC w/ Auto Diffon 5 Basophil Absolute 0.0 E9/L Normal 0.0-0.2 [facility] Comment on above: Performed By: #### 2 [id number] #### [facility] [address] [place] [address] Basophils/100 WBC (Bld) 0.4 % Normal 0.0-2.0 [facility] Comment on above: Performed By: #### 2 [id number] #### [facility] [address] [place] [address] Eos Absolute 0.2 E9/L Normal 0.0-0.5 [facility] Comment on above: Performed By: #### 2 [id number] #### [facility] [address] [place] [address] Eosinophils/100 WBC (Bld) 2.3 % Normal 0.0-8.0 [facility] Comment on above: Performed By: #### 2 [id number] #### [facility] [address] [place] [address] Erythrocyte distribution width (RBC) [Ratio] 20.0 % High 10.9-14.2 [facility] Comment on above: Performed By: #### 2 [id number] #### [facility] [address] [place] [address] Hematocrit (Bld) [Volume fraction] 33.0 % Low 37.7-49.0 [facility] Comment on above: Performed By: #### 2 [id number] #### [facility] [address] [place] [address] Hemoglobin (Bld) [Mass/Vol] 10.6 g/dL Low 13.5-17.5 [facility] Comment on above: Performed By: #### 2 [id number] #### [facility] [address] [place] [address] Lymph Absolute 0.7 E9/L Low 1.0-4.0 [facility] Comment on above: Performed By: #### 2 [id number] #### [facility] [address] [place] [address] Lymphocytes/100 WBC (Bld) 9.6 % Low 14.0-50.0 [facility] Comment on above: Performed By: #### 2 609485 #### [facility] [address] [place] [address] MCH (RBC) [Entitic mass] 27.3 pg Normal 27.0-34.0 [facility] Comment on above: Performed By: #### 2 [id number] #### [facility] [address] [place] [address] MCHC (RBC) [Mass/Vol] 32.2 g/dL Normal 31.4-36.0 [facility] Comment on above: Performed By: #### 2 284191 #### [facility] [address] [place] [address] MCV (RBC) [Entitic vol] 84.6 fL Normal 80.0-100.0 [facility] Comment on above: Performed By: #### 2 [id number] #### [facility] [address] [place] [address] [place] Absolute 0.9 E9/L Normal 0.2-1.0 [facility] Comment on above: Performed By: #### 2 794052 #### [facility] [address] [place] [address] Monocytes/100 WBC (Bld) 11.6 % Normal 4.0-14.0 [facility] Comment on above: Performed By: #### 2 707907 #### [facility] [address] [place] [address] Neutro Absolute 5.7 E9/L Normal 2.0-7.5 [facility] Comment on above: Performed By: #### 2 457012 #### [facility] [address] [place] [address] Neutro Auto 76.1 % High 36.0-75.0 [facility] Comment on above: Performed By: #### 2 177882 #### [facility] [address] [place] [address] Platelet 234.0 E9/L Normal 150.0-500.0 [facility] Comment on above: Performed By: #### 2 461351 #### [facility] [address] [place] [address] Platelet mean volume (Bld) [Entitic vol] 9.0 fL Normal 6.4-10.8 [facility] Comment on above: Performed By: #### 2 153151 #### [facility] [address] [place] [address] RBC 3.9 E12/L Low 4.3-5.9 [facility] Comment on above: Performed By: #### 2 754282 #### [facility] [address] [place] [address] WBC 7.5 E9/L Normal 4.0-11.0 [facility] Comment on above: Performed By: #### 2 710221 #### [facility] [address] [place] [address] CHEMISTRYOrdered By: Lab ROP User on 04-18-2025 Glucose [Mass/Vol] 204 mg/dL High 55 - 99 mg/dL [facility] POC Subsection Comment on above: Result Comment: Tommie HAGEN POC Device SN [id number] Invalid Interpretation Code [facility] POC Subsection POC Username BOGDAN WORKMAN Invalid Interpretation Code [facility] POC Subsection Sodium [Moles/Vol] [id number] mmol/L Invalid Interpretation Code [facility] POC Subsection Glucose [Mass/Vol] 212 mg/dL High 55 - 99 mg/dL [facility] POC Subsection Comment on above: Result Comment: Tommie HAGEN POC Device SN [id number] Invalid Interpretation Code [facility] POC Subsection POC Username BOGDAN WORKMAN Invalid Interpretation Code [facility] POC Subsection Sodium [Moles/Vol] 224471586 mmol/L Invalid Interpretation Code [facility] POC Subsection CHEMISTRYOrdered By: SYSTEM SYSTEM on [...] - 20 Remisol Chem Capillary Glucose POCon 06-0 Glucose [Mass/Vol] 204 mg/dL High 55-99 [facility] Comment on above: Result Comment: Tommie HAGEN Performed By: #### 2 [id number] ####[facility] [id number] [place] [address] Glucose [Mass/Vol] 212 mg/dL High 55-99 [facility] Comment on above: Result Comment: Tommie HAGEN Performed By: #### 2 [id number] #### [facility] [address] [place] [address] Discharge Note-Nursingon Discharge Note-Nursing Discharge Note-Nursing NADIR BETH :1940 Visit Date:04/14/2025 Inpatient Discharge Instructions Your Care Team Admitting Physician - Layne VERDUGO DO Consulting Physician - Aaron GUSTAFSON, Clover [facility] Wound, XXXX Reason for Your Visit AMS [...] HENDERSON, LU Sweet Where: [facility] [address] [place] [address]- New Follow Up Appointments after Discharge Follow Up with Neurology When: Within 2 to 4 weeks Comments: Call for followup appointment Where: [phone] Medications What How Much When Why Instructions [...] day 04/19/2025 (more content not included)... Normal [facility] HEMATOLOGYOrdered By: SYSTEM SYSTEM on 04-18-2025 Basophils/100 [...] 04-18-2025 Inpatient Clinical Summary Inpatient Clinical Summary [place] [address] Clinical Summary Person Information: Name: NADIR BETH Age: 85 Years : 1940 Sex: Male PCP: Van Youssef MD Marital Status: Race: White Ethnicity: Non- or Language: Guyanese Visit Id: Visit Reason: Altered mental status; Headache; Potential stroke; stroke Speciality: Acuity: Enc Type: Inpatient Med Service: Medical Arrival: 04/14/2025 16:53:36 Discharge: Dispo Type: Admitted as IP to this Hosp Address: [address] [place] [phone] Provider Notes: Diagnosis: 1:CVA (cerebrovascular accident); 2:Atrial [...] VERDUGO DO Consulting Physician: Clover Walker MD; [facility] Wound, XXXX Referring Physician: Follow up: With: Address: When: Neurology [phone] Within 2 to 4 weeks Comments: Call for followup appointment Type Location Start Finish [facility] URO Office Visit [facility] NAV Dominguez 06/11/2025 11:40 AM 06/11/2025 12:00 PM Confirmed Patient Education Information: Type 2 Diabetes Mellitus, Diagnosis, Adult; Atrial Fibrillation; Core Measures: Stroke (Cerebrovascular Accident) [facility], (Custom) Normal [facility] Inpatient Patient Summaryon 04-18-2025 Inpatient Patient Summary Inpatient Patient Summary [address] [address] Patient Discharge Instructions PERSON INFORMATION [...] None Follow up: With: Address: When: Neurology [phone] Within 2 to 4 weeks Comments: Call for followup appointment In the event that this physician does not participate in your insurance network, please consult with your insurance company to find a nearby participating provider. Type Location Start [facility] Office Visit [facility] NAV [place]ock 06/11/2025 11:40 AM 06/11/2025 12:00 PM Confirmed [...] ___ omepra (more content not included)... Normal [facility] Interdisciplinary Note - Zachery e Manageron 04-18-2025 Interdisciplinary Note - Business Development Agent Interdisciplinary Note - Business Development Agent Patient awake and alert eating breakfast in bed. and dtr at bedside. Patient has been accepted to [facility], patient has completed 3MN and can dc when medically clear. and daughter will transport at [place]. Patient will dc today. Denies any further concerns. Normal [facility] Comment on above: Result Comment: Elec tronically Signed By: Jihan De Oliveira\.br\Date and Time Signed: 04/18/25 09:36 EDT eGFRon 04-18-2025 eGFR 42 mL/min/1.73 m2 Low >=59 [facility] Comment on above: Performed By: #### 1 [id number] #### [facility] [address] [place] [address] BMPon 04-17-2025 Anion gap [Moles/Vol] 15 mmol/L Normal 6-16 [facility] Comment on above: Performed By: #### 2 532149 #### [facility] [address] [place] [address] BUN/Creat Ratio 21 No Units High 10-20 [facility] Comment on above: Performed By: #### 2 870350 #### [facility] [address] [place] [address] Calcium [Mass/Vol] 8.8 mg/dL Low 8.9-11.1 [facility] Comment on above: Performed By: #### 2 599296 #### [facility] [address] [place] [address] Chloride [Moles/Vol] 104 mmol/L Normal 101-111 [facility] Comment on above: Performed By: #### 2 378045 #### [facility] [address] [place] [address] CO2 [Moles/Vol] 26 mmol/L Normal 21-31 [facility] Comment on above: Performed By: #### 2 007420 #### [facility] [address] [place] [address] Creatinine [Mass/Vol] 1.6 mg/dL High 0.5-1.3 [facility] Comment on above: Performed By: #### 2 504670 #### [facility] [address] [place] [address] Glucose [Mass/Vol] 222 mg/dL High 55-199 [facility] Comment on above: Performed By: #### 2 152286 #### [facility] [address] [place] [address] Potassium [Moles/Vol] 4.1 mmol/L Normal 3.5-5.3 [facility] Comment on above: Performed By: #### 2 300749 #### [facility] [address] [place] [address] Sodium [Moles/Vol] 141 mmol/L Normal 135-145 [facility] Comment on above: Performed By: #### 2 375474 #### [facility] [address] [place] [address] Urea nitrogen [Mass/Vol] 34 mg/dL High 5-21 [facility] Comment on above: Performed By: #### 2 [id number] #### [facility] [address] [place] [address] CBC w/ Auto Diffon 5 Basophil Absolute 0.1 E9/L Normal 0.0-0.2 [facility] Comment on above: Performed By: #### 2 698083 #### [facility] [address] [place] [address] Basophils/100 WBC (Bld) 0.6 % Normal 0.0-2.0 [facility] Comment on above: Performed By: #### 2 634853 #### [facility] [address] [place] [address] Eos Absolute 0.1 E9/L Normal 0.0-0.5 [facility] Comment on above: Performed By: #### 2 041452 #### [facility] [address] [place] [address] Eosinophils/100 WBC (Bld) 0.6 % Normal 0.0-8.0 [facility] Comment on above: Performed By: #### 2 639109 #### [facility] [address] [place] [address] Erythrocyte distribution width (RBC) [Ratio] 20.3 % High 10.9-14.2 [facility] Comment on above: Performed By: #### 2 134262 #### [facility] [address] [place] [address] Hematocrit (Bld) [Volume fraction] 34.9 % Low 37.7-49.0 [facility] Comment on above: Performed By: #### 2 610930 #### [facility] [address] [place] [address] Hemoglobin (Bld) [Mass/Vol] 11.2 g/dL Low 13.5-17.5 [facility] Comment on above: Performed By: #### 2 743345 #### [facility] [address] [place] [address] Lymph Absolute 0.7 E9/L Low 1.0-4.0 [facility] Comment on above: Performed By: #### 2 225004 #### [facility] [address] [place] [address] Lymphocytes/100 WBC (Bld) 7.1 % Low 14.0-50.0 [facility] Comment on above: Performed By: #### 2 094706 #### [facility] [address] [place] [address] MCH (RBC) [Entitic mass] 27.5 pg Normal 27.0-34.0 [facility] Comment on above: Performed By: #### 2 187438 #### [facility] [address] [place] [address] MCHC (RBC) [Mass/Vol] 32.2 g/dL Normal 31.4-36.0 [facility] Comment on above: Performed By: #### 2 648353 #### [facility] [address] [place] [address] MCV (RBC) [Entitic vol] 85.4 fL Normal 80.0-100.0 [facility] Comment on above: Performed By: #### 2 131586 #### [facility] [address] [place] [address] [place] Absolute 1.4 E9/L High 0.2-1.0 [facility] Comment on above: Performed By: #### 2 235120 #### [facility] [address] [place] [address] Monocytes/100 WBC (Bld) 13.7 % Normal 4.0-14.0 [facility] Comment on above: Performed By: #### 2 999417 #### [facility] [address] [place] [address] Neutro Absolute 7.7 E9/L High 2.0-7.5 [facility] Comment on above: Performed By: #### 2 659099 #### [facility] [address] [place] [address] Neutro Auto 78.0 % High 36.0-75.0 [facility] Comment on above: Performed By: #### 2 134464 #### [facility] [address] [place] [address] Platelet 237.0 E9/L Normal 150.0-500.0 [facility] Comment on above: Performed By: #### 2 980132 #### [facility] [address] [place] [address] Platelet mean volume (Bld) [Entitic vol] 9.1 fL Normal 6.4-10.8 [facility] Comment on above: Performed By: #### 2 628643 #### [facility] [address] [place] [address] RBC 4.1 E12/L Low 4.3-5.9 [facility] Comment on above: Performed By: #### 2 806258 #### [facility] [address] [place] [address] WBC 9.9 E9/L Normal 4.0-11.0 [facility] Comment on above: Performed By: #### 2 276453 #### [facility] [address] [place] [address] CHEMISTRYOrdered By: Lab ROP User on 04-17-2025 Glucose [Mass/Vol] 203 mg/dL High 55 - 99 mg/dL [facility] POC Subsection Comment on above: Result Comment: Tommie cortes RN/ POC Device SN [id number] Invalid Interpretation Code [facility] POC Subsection POC Username JIMENA RIBEIRO Invalid Interpretation Code [facility] POC Subsection Sodium [Moles/Vol] [id number] mmol/L Invalid Interpretation Code [facility] POC Subsection CHEMISTRYOrdered By: SYSTEM SYSTEM on [...] - 20 Remisol Chem Capillary Glucose POCon 06-0 Glucose [Mass/Vol] 203 mg/dL High 55-99 [facility] Comment on above: Result Comment: Tommie HAGEN Performed By: #### 2 [id number] #### [facility] [address] [place] [address] Glucose [Mass/Vol] 240 mg/dL High 55-99 [facility] Comment on above: Result Comment: Tommie HAGEN Performed By: #### 2 [id number] #### [facility] [address] [place] [address] Glucose [Mass/Vol] 304 mg/dL High 55-99 [facility] Comment on above: Result Comment: Tommie HAGEN Performed By: #### 2 [id number] #### [facility] [address] [place] [address] Glucose [Mass/Vol] 191 mg/dL High 55-99 [facility] Comment on above: Result Comment: Tommie HAGEN Performed By: #### 2 [id number] #### [facility] [address] [place] [address] Coding Queryon 04-17-2025 Coding Query Coding Query From: Tanesha Mcdowell RN To: Anai URIARTE; Sent: 04/17/2025 11:04:22 EDT ! Subject: Coding Query Due Date/Time: 04/18/2025 11:04:00 EDT Caller Name: NADIR BETH; Caller Number: H , M Documentation in [...] Query Caller Name: NADIR BETH; Caller Number: H , M ]Acute on Chronic Diastolic (Preserved EF) Heart Failure [facility] Coding Query Coding Query From: Tanesha Mcdowell [...] URIARTE To: Tanesha Mcdowell RN; Sent: 04/17/2025 15:42:37 EDT Subject: RE: Coding Query Caller Name: NADIR BETH; Caller Number: Sergio , M __]Demand Ischemia (without a myocardial infarction) Normal [facility] HEMATOLOGYOrdered By: SYSTEM SYSTEM on 04-17-2025 Basophils/100 [...] Zachery e Manageron 04-17-2025 Interdisciplinary Note - Business Development Agent Interdisciplinary Note - Business Development Agent Patient awake and alert eating breakfast in bed. and dtr at bedside. Patient has been accepted to [facility], patient has completed 3MN and can dc when medically clear. and dtr unsure if they will transport patient or if they will need transport set up. Dtr states she would like to see how patient does with PT first. Denies any further concerns. Family will transport patient to [facility]. Normal [facility] Comment on above: Result Comment: Elec tronically Signed By: Jihan De Oliveira\.br\Date and Time Signed: 04/17/25 10:54 EDT Interdisciplinary Note - Business Development Agent Interdisciplinary Note - Business Development Agent Patient awake and alert eating breakfast in bed. and dtr at bedside. Patient has been accepted to [facility], patient has completed 3MN and can dc when medically clear. and dtr unsure if they will transport patient or if they will need transport set up. Dtr states she would like to see how patient does with PT first. Denies any further concerns. Normal [facility] Comment on above: Result Comment: Elec tronically Signed By: Jihan De Oliveira\.br\Date and Time Signed: 04/17/25 08:41 EDT RPR with Conf Rfxon 04-17-20 RPR Qual Non-Reactive Invalid Interpretation Code Non Reactive [facility] Comment on above: Result Comment: Perf ormed at: [facility] [address] [id number] PhD Huan Vyas Performed By: #### 1 [id number] #### [facility] [address] [place] [address] eGFRon 04-17-2025 eGFR 42 mL/min/1.73 m2 Low >=59 [facility] Comment on above: Performed By: #### 1 [id number] #### [facility] [address] [place] [address] BMPon 04-16-2025 Anion gap [Moles/Vol] 18 mmol/L High 6-16 [facility] Comment on above: Performed By: #### 2 428842 #### [facility] [address] [place] [address] BUN/Creat Ratio 19 No Units Normal 10-20 [facility] Comment on above: Performed By: #### 2 [id number] #### [facility] [address] [place] [address] Calcium [Mass/Vol] 9.2 mg/dL Normal 8.9-11.1 [facility] Comment on above: Performed By: #### 2 386337 #### [facility] [address] [place] [address] Chloride [Moles/Vol] 103 mmol/L Normal 101-111 [facility] Comment on above: Performed By: #### 2 215598 #### [facility] [address] [place] [address] CO2 [Moles/Vol] 24 mmol/L Normal 21-31 [facility] Comment on above: Performed By: #### 2 831405 #### [facility] [address] [place] [address] Creatinine [Mass/Vol] 1.7 mg/dL High 0.5-1.3 [facility] Comment on above: Performed By: #### 2 341352 #### [facility] [address] [place] [address] Glucose [Mass/Vol] 212 mg/dL High 55-199 [facility] Comment on above: Performed By: #### 2 000457 #### [facility] [address] [place] [address] Potassium [Moles/Vol] 3.9 mmol/L Normal 3.5-5.3 [facility] Comment on above: Performed By: #### 2 687076 #### [facility] [address] [place] [address] Sodium [Moles/Vol] 141 mmol/L Normal 135-145 [facility] Comment on above: Performed By: #### 2 746621 #### [facility] [address] [place] [address] Urea nitrogen [Mass/Vol] 33 mg/dL High 5-21 [facility] Comment on above: Performed By: #### 2 634020 #### [facility] [address] [place] [address] CBC w/ Auto Diffon 5 Basophil Absolute 0.0 E9/L Normal 0.0-0.2 [facility] Comment on above: Performed By: #### 2 515866 #### [facility] [address] [place] [address] Basophils/100 WBC (Bld) 0.1 % Normal 0.0-2.0 [facility] Comment on above: Performed By: #### 2 946655 #### [facility] [address] [place] [address] Eos Absolute 0.0 E9/L Normal 0.0-0.5 [facility] Comment on above: Performed By: #### 2 745112 #### [facility] [address] [place] [address] Eosinophils/100 WBC (Bld) 0.2 % Normal 0.0-8.0 [facility] Comment on above: Performed By: #### 2 571398 #### [facility] [address] [place] [address] Erythrocyte distribution width (RBC) [Ratio] 20.4 % High 10.9-14.2 [facility] Comment on above: Performed By: #### 2 554706 #### [facility] [address] [place] [address] Hematocrit (Bld) [Volume fraction] 37.2 % Low 37.7-49.0 [facility] Comment on above: Performed By: #### 2 [id number] #### [facility] [address] [place] [address] Hemoglobin (Bld) [Mass/Vol] 11.9 g/dL Low 13.5-17.5 [facility] Comment on above: Performed By: #### 2 566101 #### [facility] [address] [place] [address] Lymph Absolute 0.7 E9/L Low 1.0-4.0 [facility] Comment on above: Performed By: #### 2 313286 #### [facility] [address] [place] [address] Lymphocytes/100 WBC (Bld) 4.6 % Low 14.0-50.0 [facility] Comment on above: Performed By: #### 2 006034 #### [facility] [address] [place] [address] MCH (RBC) [Entitic mass] 27.2 pg Normal 27.0-34.0 [facility] Comment on above: Performed By: #### 2 683320 #### [facility] [address] [place] [address] MCHC (RBC) [Mass/Vol] 32.0 g/dL Normal 31.4-36.0 [facility] Comment on above: Performed By: #### 2 953143 #### [facility] [address] [place] [address] MCV (RBC) [Entitic vol] 84.9 fL Normal 80.0-100.0 [facility] Comment on above: Performed By: #### 2 071187 #### [facility] [address] [place] [address] [place] Absolute 1.6 E9/L High 0.2-1.0 [facility] Comment on above: Performed By: #### 2 043344 #### [facility] [address] [place] [address] Monocytes/100 WBC (Bld) 10.8 % Normal 4.0-14.0 [facility] Comment on above: Performed By: #### 2 368090 #### [facility] [address] [place] [address] Neutro Absolute 12.3 E9/L High 2.0-7.5 [facility] Comment on above: Performed By: #### 2 072264 #### [facility] [address] [place] [address] Neutro Auto 84.3 % High 36.0-75.0 [facility] Comment on above: Performed By: #### 2 570365 #### [facility] [address] [place] [address] Platelet 268.0 E9/L Normal 150.0-500.0 [facility] Comment on above: Performed By: #### 2 274107 #### [facility] [address] [place] [address] Platelet mean volume (Bld) [Entitic vol] 8.7 fL Normal 6.4-10.8 [facility] Comment on above: Performed By: #### 2 512032 #### [facility] [address] [place] [address] RBC 4.4 E12/L Normal 4.3-5.9 [facility] Comment on above: Performed By: #### 2 915148 #### [facility] [address] [place] [address] WBC 14.6 E9/L High 4.0-11.0 [facility] Comment on above: Performed By: #### 2 [id number] #### [facility] [address] [place] [address] CHEMISTRYOrdered By: SYSTEM SYSTEM on 04-16-2025 Anion [...] POCon Glucose [Mass/Vol] 265 mg/dL High 55-99 [facility] Comment on above: Result Comment: Tommie HAGEN Performed By: #### 2 [id number] #### [facility] [address] [place] [address] Glucose [Mass/Vol] 246 mg/dL High 55-99 [facility] Comment on above: Result Comment: Tommie HAGEN Performed By: #### 2 [id number] #### [facility] [address] [place] [address] Glucose [Mass/Vol] 294 mg/dL High 55-99 [facility] Comment on above: Result Comment: Tommie HAGEN Performed By: #### 2 [id number] #### [facility] [address] [place] [address] Glucose [Mass/Vol] 195 mg/dL High 55-99 [facility] Comment on above: Result Comment: Tommie HAGEN Performed By: #### 2 [id number] #### [facility] [address] [place] [address] Coding Queryon 04-16-2025 Coding Query Coding Query [...] desired or expected. Thank you![email or web address] [id number] Normal [facility] HEMATOLOGYOrdered By: SYSTEM SYSTEM on 04-16-2025 Basophils/100 [...] High 4.0 - 11.0 E9/L Remisol Heme [id number] 04-16-2025 HbA1c (Bld) [Mass fraction] 9.9 % High <=5.9 [facility] Comment on above: Performed By: #### 7 [id number] #### [facility] [address] [place] [address] Inpatient Clinical Summaryon 04-16-2025 Inpatient Clinical Summary Inpatient Clinical Summary [address] [address] Clinical Summary Person Information: Name: NADIR BETH Age: 85 Years : 1940 Sex: Male PCP: Van Youssef MD Marital Status: Race: White Ethnicity: Non- or Language: Guyanese Visit Id: Visit Reason: Altered mental status; Headache; Potential stroke; stroke Speciality: Acuity: Enc Type: Inpatient Med Service: Medical Arrival: 04/14/2025 16:53:36 Discharge: Dispo Type: Admitted as IP to this Hosp Address: [address] [place] [id number] Provider Notes: Diagnosis: 1:CVA (cerebrovascular accident); 2:Atrial [...] VERDUGO DO Consulting Physician: Clover Walker MD; [facility] Cardio, XXXX; [facility] Wound, XXXX Referring Physician: Follow up: With: Address: When: Neurology [phone] Within 2 to 4 weeks Comments: Call for followup a (more content not included)... Normal [facility] Inpatient Patient Summaryon 04-16-2025 Inpatient Patient Summary Inpatient Patient Summary [place] [address] Patient Discharge Instructions PERSON INFORMATION Name: NADIR [...] Chronic constipation with overflow Condition at Discharge: NADIR BETH has been given the following [...] test results: Follow up: With: Address: When: Neurology [phone] Within 2 to 4 weeks Comments: Call for followup appointment In the event that this physician does not participate in your insurance network, please consult with your insurance company to find a nearby participating provider. Type Location Start Finish State URO Office Visit [facility] EU Alberto 06/11/2025 11:40 AM 06/11/2025 12:00 [...] day. La (more content not included)... Normal [facility] Interdisciplinary Note - Zachery e Manageron 04-16-2025 Interdisciplinary Note - Business Development Agent Interdisciplinary Note - Business Development Agent CRM to room 202 Patient is awake, [...] and pericardial effusion. Patient is assigned to [facility], see notes. Patient has wound, cardiology and neurology on case. Patient is pending MRI. He is getting an ECHO now. Patient has recs from therapy for SNF. Patient spouse would like him referred to [facility]. Patient can DC there if accepted on 63 per 3 M needed. Patient white board updated. CRM following, contact info provided. DC plan SNF, pending [facility] accepts for SNF stay [facility] Comment on above: Result Comment: Elec tronically Signed By: Cierra Rouse\.br\Date and Time Signed: 04/16/25 11:58 EDT Interdisciplinary Note - Business Development Agent Interdisciplinary Note - Business Development Agent CRM to room 202 Patient is awake, [...] and pericardial effusion. Patient is assigned to [facility], see notes. Patient has wound, cardiology and neurology on case. Patient is pending MRI. He is getting an ECHO now. Patient has recs from therapy for SNF. Patient spouse would like him referred to [facility]. Patient can DC there if accepted on 04/17 per 3 M needed. Patient white board updated. CRM following, contact info provided. DC plan SNF, pending [facility] Comment on above: Result Comment: Elec [...] follow up out patient wound clinic Normal [facility] Interdisciplinary Note - Denise n 04-16-2025 Interdisciplinary Note - OT Interdisciplinary Note - OT OT [facility] six clicks score 16/24 = SNF. Patient requires MIN A w/ sit to stand transfers at eob, Min- mod A w dynamic standing adls. Pt requires mod vc for walker safety and sequencing w/ all functional tasks. Inpatient OT services to follow daily to progress as tolerates w/ self help skills. Normal [facility] MRI Brain w/o Contraston MRI Brain w/o [...] (Electronic Signature): 04/16/2025 12:11 pm Signed by: Thom Rashid MD Transcribed by: MARII Technologist: JOSE Normal [facility] Magnesiumon 04-16-2025 Magnesium [Mass/Vol] 2.4 mg/dL Normal 1.3-2.4 [facility] Comment on above: Performed By: #### 2 [id number] #### [facility] [address] [place] [address] eGFRon 04-16-2025 eGFR 39 mL/min/1.73 m2 Low >=59 [facility] Comment on above: Performed By: #### 1 [id number] #### [facility] [address] [place] [address] BMPon 04-15-2025 Anion gap [Moles/Vol] 20 mmol/L High 6-16 [facility] Comment on above: Performed By: #### 2 [id number] #### [facility] [address] [place] [address] BUN/Creat Ratio 18 No Units Normal 10-20 [facility] Comment on above: Performed By: #### 2 [id number] #### [facility] [address] [place] [address] Calcium [Mass/Vol] 9.4 mg/dL Normal 8.9-11.1 [facility] Comment on above: Performed By: #### 2 [id number] #### [facility] [address] [place] [address] Chloride [Moles/Vol] 102 mmol/L Normal 101-111 [facility] Comment on above: Performed By: #### 2 [id number] #### [facility] [address] [place] [address] CO2 [Moles/Vol] 24 mmol/L Normal 21-31 [facility] Comment on above: Performed By: #### 2 [id number] #### [facility] [address] [place] [address] Creatinine [Mass/Vol] 1.7 mg/dL High 0.5-1.3 [facility] Comment on above: Performed By: #### 2 [id number] #### [facility] [address] [place] [address] Glucose [Mass/Vol] 208 mg/dL High 55-199 [facility] Comment on above: Performed By: #### 2 [id number] #### [facility] [address] [place] [address] Potassium [Moles/Vol] 4.0 mmol/L Normal 3.5-5.3 [facility] Comment on above: Performed By: #### 2 [id number] #### [facility] [address] [place] [address] Sodium [Moles/Vol] 142 mmol/L Normal 135-145 [facility] Comment on above: Performed By: #### 2 [id number] #### [facility] [address] [place] [address] Urea nitrogen [Mass/Vol] 30 mg/dL High 5-21 [facility] Comment on above: Performed By: #### 2 [id number] #### [facility] [address] [place] [address] CHEMISTRYOrdered By: SYSTEM SYSTEM on 04-15-2025 Cholesterol [...] Sensitivity Troponin I Instructions For Use, Roxane [employer], June 2018) TSH Qn 0.50 m[IU]/L Normal 0.34 - 5.60 mcIU/mL Remisol Chem CHEMISTRYOrdered By: Kaiser Daly on 04-15-2025 HbA1c (Bld) [Mass fraction] 9.9 % High <=5.9% [facility] Chem[employer]SS COAGULATIONOrdered By: Deb Maza on 04-15-2025 aPTT Coag (PPP) [Time] 45.1 s High 25.1 - 36.5 second(s) [facility] Comment on above: Interpretive Data: [...] the same coagulation reagent and instrumentation as [facility]. Currently there are no coagulation studies available worldwide for children to 14 days, and no normal ranges. Heparin therapeutic range (represented by Anti-Factor Xa activity of 0.2 - 0.4 U/mL) corresponds to PTT of 56.6 - 109.0 sec. INR Coag (PPP) [Relative time] 0.95 {INR} Invalid Interpretation Code [facility] Comment on above: Interpretive Data: I NR results are specifically intended to assess patients stabilized on long-term Anticoagulation therapy suggested INR s Less Intensive Anticoagulation 2.0 3.0 Conventional Range 3.0 4.5 PT Coag (PPP) [Time] 10.6 s Normal 9.4 - 1 2.5 second(s) [facility] Comment on above: Interpretive Data: [...] the same coagulation reagent and instrumentation as [facility]. Currently there are no coagulation studies available worldwide for children to 14 days, and no normal ranges. COAGULATIONOrdered By: Marty Naidu on 04-15-2025 aPTT Coag (PPP) [Time] 53.2 s High 25.1 - 36.5 second(s) [facility] Comment on above: Interpretive Data: [...] the same coagulation reagent and instrumentation as [facility]. Currently there are no coagulation studies available worldwide for children to 14 days, and no normal ranges. Heparin therapeutic range (represented by Anti-Factor Xa activity of 0.2 - 0.4 U/mL) corresponds to PTT of 56.6 - 109.0 sec. INR Coag (PPP) [Relative time] 0.96 {INR} Invalid Interpretation Code [facility] Comment on above: Interpretive Data: I NR results are specifically intended to assess patients stabilized on long-term Anticoagulation therapy suggested INR s Less Intensive Anticoagulation 2.0 3.0 Conventional Range 3.0 4.5 PT Coag (PPP) [Time] 10.8 s Normal 9.4 - 1 2.5 second(s) [facility] Comment on above: Interpretive Data: [...] the same coagulation reagent and instrumentation as [facility]. Currently there are no coagulation studies available worldwide for children to 14 days, and no normal ranges. Capillary Glucose POCon 06-0 Glucose [Mass/Vol] 177 mg/dL High 55-99 [facility] Comment on above: Result Comment: Tommie HAGEN Performed By: #### 2 [id number] #### [facility] [address] [place] [address] Glucose [Mass/Vol] 202 mg/dL High 55-99 [facility] Comment on above: Result Comment: Tommie HAGEN Performed By: #### 2 [id number] #### [facility] [address] [place] [address] Glucose [Mass/Vol] 216 mg/dL High 55-99 [facility] Comment on above: Result Comment: Tommie cortes RN/ Performed By: #### 2 [id number] #### [facility] [address] [place] [address] Glucose [Mass/Vol] 242 mg/dL High 55-99 [facility] Comment on above: Result Comment: Tommie cortes RN/ Performed By: #### 2 [id number] #### [facility] [address] [place] [address] Extra Mir 04-15-2025 WB Tube Collected Yes Invalid Interpretation Code [facility] Comment on above: Performed By: #### 1 [id number] #### [facility] [address] [place] [address] Folateon 04-15-2025 Folate Lvl >22.3 Normal >=6.7 [facility] Comment on above: Performed By: #### 2 [id number] #### [facility] [address] [place] [address] Hemoglobinon 04-15-2025 Hemoglobin (Bld) [Mass/Vol] 12.2 g/dL Low 13.5-17.5 [facility] Comment on above: Performed By: #### 2 [id number] #### [facility] [address] [place] [address] Interdisciplinary Note - Denise n 04-15-2025 Interdisciplinary Note - OT Interdisciplinary Note - OT OT chart reviewed and spoke to nursing with request to hold today until pt. is more medically stable. Will recheck tomorrow. Normal [facility] Interdisciplinary Note - Spe ech Languageon 04-15-2025 [...] to 5x/week to address these deficits. Normal [facility] Lipid Panelon 04-15-2025 Cholesterol [Mass/Vol] 210 mg/dL High 120-200 [facility] Comment on above: Performed By: #### 2 [id number] #### [facility] [address] [place] [address] Cholesterol in HDL [Mass/Vol] 88 mg/dL Invalid Interpretation Code [facility] Comment on above: Result Comment: '>= 60 LOW RISK' '<= 40 HIGH RISK' Performed By: #### 2 [id number] #### [facility] [address] [place] [address] Cholesterol in LDL [Mass/Vol] 107 mg/dL Normal <=129 [facility] Comment on above: Performed By: #### 2 [id number] #### [facility] [address] [place] [address] Cholesterol in VLDL [Mass/Vol] 9 mg/dL Normal 7-40 [facility] Comment on above: Performed By: #### 2 [id number] #### [facility] [address] [place] [address] Triglyceride [Mass/Vol] 44 mg/dL Normal <=149 [facility] Comment on above: Performed By: #### 2 [id number] #### [facility] [address] [place] [address] Magnesiumon 04-15-2025 Magnesium [Mass/Vol] 2.6 mg/dL High 1.3-2.4 [facility] Comment on above: Performed By: #### 2 [id number] #### [facility] [address] [place] [address] PT & PTTon 04-15-2025 INR Coag (PPP) [Relative time] 0.95 {INR} Invalid Interpretation Code [facility] Comment on above: Result Comment: INR results are specifically intended to assess patients stabilized on long-term Anticoagulation therapy suggested INR???s ???Less Intensive Anticoagulation??? 2.0 ??? 3.0 Conventional Range 3.0 ??? 4.5 Performed By: #### 1 [id number] #### [facility] [address] [place] [address] PT 10.6 second(s) Normal 9.4-12.5 [facility] Comment on above: Result Comment: 15 [...] the same coagulation reagent and instrumentation as [facility]. Currently there are no coagulation studies available worldwide for children to 14 days, and no normal ranges. Performed By: #### 1 [id number] #### [facility] [address] [place] [address] PTT 45.1 second(s) High 25.1-36.5 [facility] Comment on above: Result Comment: Para [...] the same coagulation reagent and instrumentation as [facility]. Currently there are no coagulation studies available worldwide for children to 14 days, and no normal ranges. Heparin therapeutic range (represented by Anti-Factor Xa activity of 0.2 - 0.4 U/mL) corresponds to PTT of 56.6 - 109.0 sec. Performed By: #### 1 [id number] #### [facility] [address] [place] [address] INR Coag (PPP) [Relative time] 0.96 {INR} Invalid Interpretation Code [facility] Comment on above: Result Comment: INR results are specifically intended to assess patients stabilized on long-term Anticoagulation therapy suggested INR???s ???Less Intensive Anticoagulation??? 2.0 ??? 3.0 Conventional Range 3.0 ??? 4.5 Performed By: #### 1 [id number] #### [facility] [address] [place] [address] PT 10.8 second(s) Normal 9.4-12.5 [facility] Comment on above: Result Comment: 15 [...] the same coagulation reagent and instrumentation as [facility]. Currently there are no coagulation studies available worldwide for children to 14 days, and no normal ranges. Performed By: #### 1 [id number] #### [facility] [address] [place] [address] PTT 53.2 second(s) High 25.1-36.5 [facility] Comment on above: Result Comment: Para [...] the same coagulation reagent and instrumentation as [facility]. Currently there are no coagulation studies available worldwide for children to 14 days, and no normal ranges. Heparin therapeutic range (represented by Anti-Factor Xa activity of 0.2 - 0.4 U/mL) corresponds to PTT of 56.6 - 109.0 sec. Performed By: #### 1 [id number] #### [facility] [address] [place] [address] Platelet Counton 04-15-2025 Platelet 299.0 E9/L Normal 150.0-500.0 [facility] Comment on above: Performed By: #### 2 [id number] #### [facility] [address] [place] [address] Reference Laboratory Testing Ordered By: Generated DomainUser on 04-15-2025 Reagin Ab RPR Ql (S) Non-Reactive Invalid Interpretation Code Non Reactive [facility] [employer] Comment on above: Result Comment: Perf ormed at: [facility] [address] [id number] PhD Huan Vyas TSH With T4fr Reflexon 04-15 TSH Qn 0.50 m[IU]/L Normal 0.34-5.60 [facility] Comment on above: Performed By: #### 1 [id number] #### [facility] [address] [place] [address] Troponinon 04-15-2025 Troponin HS 62.60 pg/mL Abnormal 15.90-38.40 [facility] Comment on above: Result Comment: Crit [...] Sensitivity Troponin I Instructions For Use, Roxane Epsom, June 2018) Performed By: #### 2 [id number] #### [facility] [address] [place] [address] UA with Cult Rflxon 04-15-20 25 Color (U) Light-Yellow Normal Yellow [facility] Comment on above: Result Comment: Micr oscopic readings are only performed on those samples that meet specific criteria set forth by [facility]. Performed By: #### 4 [id number] #### [facility] [address] [place] [address] Ketones Ql (U) 1+ mg/dL Abnormal Negative [facility] Comment on above: Performed By: #### 4 [id number] #### [facility] [address] [place] [address] UA Blood Trace Abnormal Negative [facility] Comment on above: Performed By: #### 4 [id number] #### [facility] [address] [place] [address] UA Clarity Clear Normal Clear [facility] Comment on above: Performed By: #### 4 [id number] #### [facility] [address] [place] [address] UA Glucose 4+ mg/dL Abnormal Negative [facility] Comment on above: Performed By: #### 4 [id number] #### [facility] [address] [place] [address] UA Leuk Est Negative Normal Negative [facility] Comment on above: Performed By: #### 4 [id number] #### [facility] [address] [place] [address] UA Nitrite Negative Normal Negative [facility] Comment on above: Performed By: #### 4 [id number] #### [facility] [address] [place] [address] UA pH 6.0 Invalid Interpretation Code 5.0-9.0 [facility] Comment on above: Performed By: #### 4 [id number] #### [facility] [address] [place] [address] UA Protein Negative Normal Negative [facility] Comment on above: Performed By: #### 4 [id number] #### [facility] [address] [place] [address] UA Spec Grav 1.023 Invalid Interpretation Code 1.005-1.030 [facility] Comment on above: Performed By: #### 4 [id number] #### [facility] [address] [place] [address] UA Urobilinogen Negative Normal Negative [facility] Comment on above: Performed By: #### 4 [id number] #### [facility] [address] [place] [address] Urobilinogen (U) [Mass/Vol] Negative Normal Negative [facility] Comment on above: Performed By: #### 4 [id number] #### [facility] [address] [place] [address] URINALYSISOrdered By: SYSTEM SYSTEM on 04-15-2025 Bilirubin Ql (U) Negative Normal Negativemg/ d L FT [facility]A Auto SS Clarity (U) Clear (04/15/25 4:58 AM) Normal Clear [facility] UA Auto SS Color (U) Light-Yellow 1 (04/15/25 4:58 AM) Normal Yellow [facility] UA Auto SS Comment on above: Interpretive Data: M icroscopic readings are only performed on those samples that meet specific criteria set forth by [facility]. Glucose Ql (U) 4+ mg/dL Invalid Interpretation Code Negativemg/d L FT [facility]A Auto SS Hemoglobin Auto test strip (U) [Mass/Vol] Trace mg/dL Invalid Interpretation Code Negativemg/d L FT [facility]A Auto SS Ketones Auto test strip Ql (U) 1+ mg/dL Invalid Interpretation Code Negativemg/d L [facility] UA Auto SS Leukocyte esterase Auto test strip Ql (U) Negative Normal NegativeLeu/ uL [facility] UA Auto SS Nitrite Auto test strip Ql (U) Negative Normal Negativemg/d L [facility] UA Auto SS pH (U) 6.0 *NA* (04/15/25 4:58 AM) Invalid Interpretation Code 5.0 - 9.0 [facility] UA Auto SS Protein Ql (U) Negative Normal Negativemg/d L [facility] UA Auto SS Specific gravity (U) [Rel density] 1.023 *NA* (04/15/25 4:58 AM) Invalid Interpretation Code 1.005 - 1.030 [facility] UA Auto SS Urobilinogen (U) [Mass/Vol] Negative Normal Negativemg/d L [facility] UA Auto SS URINALYSISOrdered By: Nick Farmer on 04-15-2025 UA Spec Desc Clean Catch (04/15/25 4:58 AM) Normal [facility] UA Auto SS Vit B12on 04-15-2025 Cobalamin (Vitamin B12) [Mass/Vol] 573 pg/mL Normal 50-1500 [facility] Comment on above: Performed By: #### 2 [id number] #### [facility] [address] [place] [address] eGFRon 04-15-2025 eGFR 39 mL/min/1.73 m2 Low >=59 [facility] Comment on above: Performed By: #### 1 [id number] #### [facility] [address] [place] [address] BB Draw & Holdon 04-14-2025 BB D&H Sample drawn for Blo od Ba Normal [facility] Comment on above: Performed By: #### 1 [id number] #### [facility] [address] [place] [address] BMPon 04-14-2025 Anion gap [Moles/Vol] 15 mmol/L Normal 6-16 [facility] Comment on above: Performed By: #### 2 [id number] #### [facility] [address] [place] [address] BUN/Creat Ratio 16 No Units Normal 10-20 [facility] Comment on above: Performed By: #### 2 [id number] #### [facility] [address] [place] [address] Calcium [Mass/Vol] 9.0 mg/dL Normal 8.9-11.1 [facility] Comment on above: Performed By: #### 2 [id number] #### [facility] [address] [place] [address] Chloride [Moles/Vol] 103 mmol/L Normal 101-111 [facility] Comment on above: Performed By: #### 2 [id number] #### [facility] [address] [place] [address] CO2 [Moles/Vol] 24 mmol/L Normal 21-31 [facility] Comment on above: Performed By: #### 2 [id number] #### [facility] [address] [place] [address] Creatinine [Mass/Vol] 1.8 mg/dL High 0.5-1.3 [facility] Comment on above: Performed By: #### 2 [id number] #### [facility] [address] [place] [address] Glucose [Mass/Vol] 245 mg/dL High 55-199 [facility] Comment on above: Performed By: #### 2 [id number] #### [facility] [address] [place] [address] Potassium [Moles/Vol] 5.0 mmol/L Normal 3.5-5.3 [facility] Comment on above: Performed By: #### 2 [id number] #### [facility] [address] [place] [address] Sodium [Moles/Vol] 137 mmol/L Normal 135-145 [facility] Comment on above: Performed By: #### 2 [id number] #### [facility] [address] [place] [address] Urea nitrogen [Mass/Vol] 28 mg/dL High 5-21 [facility] Comment on above: Performed By: #### 2 [id number] #### [facility] [address] [place] [address] BNPon 04-14-2025 Natriuretic peptide B (Bld) [Mass/Vol] 512 pg/mL High 5-80 [facility] Comment on above: Performed By: #### 1 [id number] #### [facility] [address] [place] [address] CBC w/ Auto Diffon 5 Basophil Absolute 0.1 E9/L Normal 0.0-0.2 [facility] Comment on above: Performed By: #### 2 [id number] #### [facility] [address] [place] [address] Basophils/100 WBC (Bld) 0.8 % Normal 0.0-2.0 [facility] Comment on above: Performed By: #### 2 [id number] #### [facility] [address] [place] [address] Eos Absolute 0.1 E9/L Normal 0.0-0.5 [facility] Comment on above: Performed By: #### 2 [id number] #### [facility] [address] [place] [address] Eosinophils/100 WBC (Bld) 1.5 % Normal 0.0-8.0 [facility] Comment on above: Performed By: #### 2 [id number] #### [facility] [address] [place] [address] Erythrocyte distribution width (RBC) [Ratio] 19.7 % High 10.9-14.2 [facility] Comment on above: Performed By: #### 2 [id number] #### [facility] [address] [place] [address] Hematocrit (Bld) [Volume fraction] 33.7 % Low 37.7-49.0 [facility] Comment on above: Performed By: #### 2 [id number] #### [facility] [address] [place] [address] Hemoglobin (Bld) [Mass/Vol] 11.0 g/dL Low 13.5-17.5 [facility] Comment on above: Performed By: #### 2 [id number] #### [facility] [address] [place] [address] Lymph Absolute 0.6 E9/L Low 1.0-4.0 [facility] Comment on above: Performed By: #### 2 [id number] #### [facility] [address] [place] [address] Lymphocytes/100 WBC (Bld) 7.8 % Low 14.0-50.0 [facility] Comment on above: Performed By: #### 2 [id number] #### [facility] [address] [place] [address] MCH (RBC) [Entitic mass] 27.5 pg Normal 27.0-34.0 [facility] Comment on above: Performed By: #### 2 [id number] #### [facility] [address] [place] [address] MCHC (RBC) [Mass/Vol] 32.7 g/dL Normal 31.4-36.0 [facility] Comment on above: Performed By: #### 2 [id number] #### [facility] [address] [place] [address] MCV (RBC) [Entitic vol] 84.0 fL Normal 80.0-100.0 [facility] Comment on above: Performed By: #### 2 [id number] #### [facility] [address] [place] [address] [place] Absolute 0.8 E9/L Normal 0.2-1.0 [facility] Comment on above: Performed By: #### 2 [id number] #### [facility] [address] [place] [address] Monocytes/100 WBC (Bld) 9.9 % Normal 4.0-14.0 [facility] Comment on above: Performed By: #### 2 [id number] #### [facility] [address] [place] [address] Neutro Absolute 6.5 E9/L Normal 2.0-7.5 [facility] Comment on above: Performed By: #### 2 [id number] #### [facility] [address] [place] [address] Neutro Auto 80.0 % High 36.0-75.0 [facility] Comment on above: Performed By: #### 2 [id number] #### [facility] [address] [place] [address] Platelet 216.0 E9/L Normal 150.0-500.0 [facility] Comment on above: Performed By: #### 2 [id number] #### [facility] [address] [place] [address] Platelet mean volume (Bld) [Entitic vol] 9.3 fL Normal 6.4-10.8 [facility] Comment on above: Performed By: #### 2 [id number] #### [facility] [address] [place] [address] RBC 4.0 E12/L Low 4.3-5.9 [facility] Comment on above: Performed By: #### 2 [id number] #### [facility] [address] [place] [address] WBC 8.1 E9/L Normal 4.0-11.0 [facility] Comment on above: Result Comment: Rosaura pheral smear review performed. Performed By: #### 2 [id number] #### [facility] [address] [place] [address] CHEMISTRYOrdered By: [employer] SYSTEM on 04-14-2025 Lactate [Moles/Vol] 1.5 mmol/L [...] 512 pg/mL High 5 - 80 pg/mL [facility] CHEMISTRYOrdered By: Samir Naidu on 04-14-2025 Magnesium [...] 33.3 s Normal 25.1 - 36.5 second(s) [facility] Comment on above: Interpretive Data: P richard 15 days - 4 weeks 1 - [...] the same coagulation reagent and instrumentation as [facility]. Currently there are no coagulation studies available worldwide for children to 14 days, and no normal ranges. Heparin therapeutic range (represented by Anti-Factor Xa activity of 0.2 - 0.4 U/mL) corresponds to PTT of 56.6 - 109.0 sec. INR Coag (PPP) [Relative time] 0.98 {INR} Invalid Interpretation Code [facility] Comment on above: Interpretive Data: I NR results are specifically intended to assess patients stabilized on long-term Anticoagulation therapy suggested INR s Less Intensive Anticoagulation 2.0 3.0 Conventional Range 3.0 4.5 PT Coag (PPP) [Time] 11.0 s Normal 9.4 - 1 2.5 second(s) [facility] Comment on above: Interpretive Data: [...] the same coagulation reagent and instrumentation as [facility]. Currently there are no coagulation studies available [...] DO Transcribed by: MARII Technologist: ADÁN Tovar [facility] CT Head or Brain w/o Contras ton [...] Yoel Rodriguez DO Transcribed by: MARII Technologist: DAÁN Tovar [facility] CTA Headon 04-14-2025 CTA Head Exam Date/Time: 04/14/2025 17:33 EDT Reason for Exam: NEURO DEFICIT, ACUTE, STROKE SUSPECTED;Other (please specify) Report Please see CTA neck report. Ordering Provider: Rivas Griggs FINAL REPORT Dictated: 04/14/2025 5:55 pm Yoel Rodriguez DO Signed (Electronic Signature): 04/14/2025 5:55 pm Signed by: Yoel Rodriguez DO Transcribed by: MARII Technologist: CONSTANTIN Romero [facility] CTA Neckon 04-14-2025 CTA Neck Exam Date/Time: [...] obtained from the thoracic inlet through the [place] of [place] after administration of intravenous contrast. [...] DO Transcribed by: MARII Technologist: CONSTANTIN Normal [facility] Capillary Glucose POCon 03-17 Glucose [Mass/Vol] 261 mg/dL High 55-99 [facility] Comment on above: Performed By: #### 2 [id number] #### [facility] [address] [place] [address] ED Clinical Summaryon 2024 ED Clinical Summary ED Clinical Summary [address] [address] ED Clinical Summary Person Information Name: NADIR BETH [facility] Age: 85 Years : 1940 Sex: Male Language: Guyanese PCP: Van Youssef MD Marital Status: Visit Id: Visit Reason: Altered mental status; Headache; Potential stroke; stroke Speciality: Acuity: 2 Enc Type: Inpatient Med Service: Medical Arrival: 04/14/2025 16:53:36 Discharge: LOS: 000 03:59 Checkin: 04/14/2025 16:53:36 Checkout: 04/14/2025 20:52:18 Dispo Type: Admitted as IP to this [facility] EVENTS: Event Name Event Status Request [...] 19:37:19 Pending Labs Request 04/14/2025 19:50:50 ADDRESS: [address] [place] [phone] PHYS DOC NOTES: Addendum by Oleg Doll DO on April 14, 2025 19:50:02 EDT MEDICAL INFORMATION: Prescriptions Given: Medications to Continue with No Changes Other Medications acetaminophen-hydrocod one ([place] 325 mg-5 mg oral tablet) 1 Tablets [...] the morn (more content not included)... Normal [facility] ED Note-Physicianon 04-14-20 ED Note-Physician ED Note-Physician Basic Information Time Seen: Indu Slaughter Rivas Hill 04/14/2025 17:02 Chief Complaint pt presents via community health d/t ams. family states pt complains of [...] and Complexity of Problems Differential Diagnosis: [] [facility] Data External documents reviewed: [] My EKG [...] cardiac and/ (more content not included)... Normal [facility] Comment on above: Result Comment: Elec tronically Signed By: Oleg Doll DO\.br\Date and Time Signed: 04/14/25 19:50 EDT ED Patient Education Noteon 04-14-2025 ED Patient Education Note ED Patient Education Note Normal [facility] ED Patient Summaryon 025 ED Patient Summary ED Patient Summary [place] [address] Patient Discharge Instructions Person Information Name: NADIR BETH Age: 85 Years Arrival Date: 04/14/2025 16:53:36 Discharge Diagnosis: 1:CVA (cerebrovascular accident); 2:Congestive heart failure; 3:Chronic kidney disease; 4:Hypertensive urgency; Pericardial effusion; Pleural effusion Primary Care Physician: Van Youssef MD Provider Information Primary Provider: Rivas Griggs M.D. Advanced Innersole Maker:None The exam and treatment you received in the Emergency Department were for an urgent problem and are not intended as complete care. It is important that you follow up with a doctor, nurse practitioner, or physician???s health assistant for ongoing care. If your symptoms become worse or you do not improve as expected and you are unable to reach your usual health care provider, you should return to the Emergency Department. We are available 24 hours a day. KIRIT NADIR [place] has been given the [...] opioids can be used to help relieve sobedotp-uu-iqnzif pain and are often prescribed following a [...] be struggling with addiction, tell your health acute care registered nurse and ask for guidance or call [facility] (more content not included)... Normal [facility] Lactic Acidon 04-14-2025 Lactic Acid Lvl 1.5 mmol/L Normal 0.5-2.2 [facility] Comment on above: Performed By: #### 2 [id number] #### [facility] [address] [place] [address] Magnesiumon 04-14-2025 Magnesium [Mass/Vol] 2.2 mg/dL Normal 1.3-2.4 [facility] Comment on above: Performed By: #### 2 [id number] #### [facility] [address] [place] [address] No Panel InformationOrdered By: ANGPROCESSSERVER MICROBIOLOGY on 04-14-2025 Blood Culture Charcoal No growth at 4 days. Final to follow at 7 days. [facility] Blood Culture Charcoal No growth at 4 days. Final to follow at 7 days. [facility] PT & PTTon 04-14-2025 INR Coag (PPP) [Relative time] 0.98 {INR} Invalid Interpretation Code [facility] Comment on above: Result Comment: INR results are specifically intended to assess patients stabilized on long-term Anticoagulation therapy suggested INR???s ???Less Intensive Anticoagulation??? 2.0 ??? 3.0 Conventional Range 3.0 ??? 4.5 Performed By: #### 1 [id number] #### [facility] [address] [place] [address] PT 11.0 second(s) Normal 9.4-12.5 [facility] Comment on above: Result Comment: 15 d ays - 4 weeks 1 - 5 months 6 -11 months 1- 5 years 6-10 years 11 -17 years Mean: 11.2 (9.5-12.6) Mean: 11.0 (9.7-12.8) Mean: 11.0 (9.8-13.0) Mean: 11.3 (9.9-13.4) Mean: 11.7 (10.0-14.6) Mean: 11.8 (10.0 - 14.1) Pediatric Reference ranges were obtained from a study by mary Phan. prepared from 1437 samples obtained at 7 different centers using the same coagulation reagent and instrumentation as [facility]. Currently there are no coagulation studies available worldwide for children to 14 days, and no normal ranges. Performed By: #### 1 [id number] #### [facility] [address] [place] [address] PTT 33.3 second(s) Normal 25.1-36.5 [facility] Comment on above: Result Comment: Para [...] the same coagulation reagent and instrumentation as [facility]. Currently there are no coagulation studies available worldwide for children to 14 days, and no normal ranges. Heparin therapeutic range (represented by Anti-Factor Xa activity of 0.2 - 0.4 U/mL) corresponds to PTT of 56.6 - 109.0 sec. Performed By: #### 1 [id number] #### [facility] [address] [place] [address] Pre-Arrival Noteon Pre-Arrival Note Pre-Arrival Note Pre-Arrival Summary Name: , community health Current Date: 04/14/2025 16:54:02 EDT Gender: Male Date of : Age: 85 Pre-Arrival Type: EMS ETA: 04/14/2025 17:17:00 EDT Primary Care Physician: Presenting Problem: Pre-Arrival User: Abdoul Mcmillan Referring Source: Location: [place] Completion Date/Time: 04/14/2025 16:47:00 [facility] Emergency Department Pre-Hospital Report Form Vital Signs: Pre-Hospital Report: Treatment in Route: Response to Treatment: Misc. Issues: Normal [facility] Procalcitoninon 04-14-2025 Procalcitonin .06 ng/mL Normal .00-.50 [facility] Comment on above: Result Comment: <0.5 [...] to 24 hours. Performed By: #### 2 [id number] #### [facility] [address] [place] [address] Troponin 0 Hr.on 04-14-2025 Troponin HS 18.30 pg/mL Normal 15.90-38.40 [facility] Comment on above: Result Comment: The 95% CI (Confidence Interval) PPV (Positive Predictive Value) for myocardial infarction in females is 38 pg/mL, in males 51 pg/mL. The results should be used in conjunction with clinical conditions of myocardial infarction. (Access High Sensitivity Troponin I Instructions For Use, Roxane Blanca, June 2018) Performed By: #### 1 [id number] #### [facility] [address] [place] [address] UA with Cult Rflxon 04-14-20 25 UA Spec Desc Clean Catch Normal [facility] Comment on above: Performed By: #### 4 [id number] #### [facility] [address] [place] [address] XR Chest Single Viewon 04-14 XR Chest [...] DO Transcribed by: MARII Technologist: ADÁN Tovar [facility] eGFRon 04-14-2025 eGFR 36 mL/min/1.73 m2 Low >=59 [facility] Comment on above: Performed By: #### 1 [id number] #### [facility] [address] [place] [address] Office Visiton 03-12-2025 Follow-up visit [id number] Nadir Beth 1940 M Date Provider Department Center 03/12/2025 CLARIBEL VILLALOBOS Family History Problem Relation Age of Onset Coronary artery disease Father Family Status - Relation Status Age at Father Level of Service:54379 [place] OFFICE/OUTPATIENT ESTABLISHED HIGH MDM 40 MIN Normal [facility] HPon 02-28-2025 HP -- Attestation signed by Albaro Faulkner MD at 03/01/2025 6:06 PM I personally saw and examined the patient on the same date of service as resident/fellow Dr chilel. I discussed the findings and therapeutic plan with the resident/fellow Dr chilel. I agree with the documentation, except for any edits/updates below. Teaching Physician's Revisions: None Albaro Faulkner MD, [facility] History Of Present Illness Nadir Beth is a 85 y.o. male presenting with aortic stoneosis for MARK. Past Medical History He has a past medical history of Atrial fibrillation (CMS/HCC), CHF (congestive heart failure) (CMS/HCC), Chronic kidney [...] Father Allergies Iodinated contrast media, Nitroglycerin, and Pdclzvw-jgu-soy reductase inhibitors Medications (Not in a hospital [...] Imaging Results Transesophageal echo (MARK) Addendum: 1 [facility] [[email or web address]] Heart Station [address] [place] [address] [phone] (fax) Transesophageal Echocardiogram-[facility] [[email or web address]] Name: NADIR BETH Study Date: 08/31/2023 02:31 PM B/P: 190 mmHg/86 mmHg HR: 92 bpm Date of : 1940 Location: [facility] [[email or web address]] Height: 71 in. Age: 83 year(s) Patient Room: Weight: 210 lb. Gender: Male Patient Status: OutPt BSA: 2.15 m2 Indication: Aortic Valve Stenosis Examination: MARK/Limited Doppler/CFI Image Quality: Excellent Patient Consent: Informed, written consent was obtained for the procedure Exam Location: A MARK was performed in the [facility] without complications Anesthesia Pharyngeal anesthesia with viscous Lidocaine Conclusions Left Ventricle: Global left ventricular systolic function is hyperdynamic. EF range is estimated at 65 % -70 %. No regional wall motion abnormality. Right Ventricle: The right ventricle appears normal in size. Normal right kari (more content not included)... Normal [facility] NURSNOTEon 02-28-2025 NURSNOTE Bedside swallow stud y [...] of unit with all of belongings. Normal [facility] Telephoneon 02-21-2025 Telephone [id number] Nadir Beth 1940 M Date Provider Department Center 02/21/2025 RABIA KONG [facility] VASC LAB HI HeartVAS Family History Problem Relation Age of Onset Coronary artery disease Father Family Status - Relation Status Age at Father Normal [facility] Follow-Upon 01-03-2025 Follow-Up [id number] Nadir Beth 1940 M Date Provider Department Center 01/03/2025 SalvadorRUTHIE [facility] NEPHRO Comprehensiv Family History Problem Relation Age of Onset Coronary artery disease Father Family Status - Relation Status Age at Father Level of Service:62421 [place] OFFICE/OUTPATIENT ESTABLISHED MOD MDM 30 MIN () Reason for Visit and Comments: Follow-up [090302] [facility] Office Visiton 12-14-2024 Follow-up visit [id number] Nadir Beth 1940 M Date Provider Department Center 12/14/2024 CLARIBEL VILLALOBOS MILKA Beckett Family History Problem Relation Age of Onset Coronary artery disease Father Family Status - Relation Status Age at Father Level of Service:53725 [place] OFFICE/OUTPATIENT ESTABLISHED MOD MDM 30 MIN [facility] Ambulatory Visit Summaryon 0 12-04-2024 [...] This Is Your Medications List acetaminophen-hydrocod one ([place] 325 mg-5 mg oral tablet) ciprofloxacin (Cipro [...] HENDERSON, LU Sweet Where: [facility] [address] [id number] You Need to Schedule the Following Appointments Follow Up with ADRIAN GUSTAFSON, ADAN CHO When: In 6 months Comments: Can see DIAMANTE, w/PVR Where: Medications What How Much When Why Instructions Unchanged acetaminophen-hydrocod one ([place] 325 mg-5 mg oral tablet) 1 Tablets [...] concerns Uncha (more content not included)... Normal [facility] Urology Office/Clinic Noteon 12-04-2024 Urology [...] out of his penis. Pt presented to [facility] ER 10/28/24 due to clot retention. [...] 7. 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) Pt presented to [facility] ER 08/06/24 with redness on the [...] penis. -Cont symptomatic monitoring 8. 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 Hx of cardioversion. Increased risk for bleeding. Elevated r (more content not included)... Normal [facility] Comment on above: [...] Is Your Medications List NIFEdipine acetaminophen-hydrocod one ([place] 325 mg-5 mg oral tablet) acyclovir apixaban [...] MARQUIS LOUISE MD Where: [facility] [address], [address] [place] [address]- Medications What How Much When Why Instructions Unchanged acetaminophen-hydrocod one ([place] 325 mg-5 mg oral tablet) 1 Tablets [...] survey v (more content not included)... Normal [facility] Ambulatory Visit Summaryon 1 01-03-2024 Ambulatory Visit Summary Ambulatory Visit Summary NADIR BETH :1940 Visit Date:11/02/2024 Ambulatory Visit Instructions Your Diagnosis BPH with urinary obstruction Gross hematuria Incomplete bladder emptying OAB (overactive bladder) Acquired buried penis Balanitis Anticoagulated Your Care Team Attending Physician - ADRIAN GUSTAFSON, MARQUIS Primary Care Physician - Van Youssef MD This Is Your Medications List acetaminophen-hydrocod one ([place] 325 mg-5 mg oral tablet) ciprofloxacin (Cipro [...] With: Where: [facility] [address] [facility] [place] [address] [place] [address]- Wednesday 8:40 AM EST With: MARQUIS LOUISE MD Where: [facility] [address], [address] [place] [address]- You Need to Schedule the Following Appointments Follow Up with MARQUIS LOUISE MD, URL When: Where: Medications What How Much When Why Instructions Unchanged acetaminophen-hydrocod one ([place] 325 mg-5 mg oral tablet) 1 Tablets [...] or co (more content not included)... Normal [facility] Urology Office/Clinic Noteon 11-02-2024 Urology Office/Clinic Note Urology Office/Clinic Note Chief Complaint er f/u HPI Staff 84 year old male here for [facility] ER F/U, difficulty urinating. Bladder scan [...] with voice recognition artificial intelligence software, specifically [employer], [employer] and or [employer]. Substitutions may have occurred due to the [...] out of his penis. Pt presented to [facility] ER 10/28/24 due to clot retention. [...] 6. 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) Pt presented to [facility] ER 08/06/24 with redness on the [...] penis. -Cont symptomatic monitoring 7. Anticoagulated (Z79.01: half-way (current) use of anticoagulants) Taking Eliquis, has restarted since UroLift. Hx of cardioversion. Increased risk for bleeding. Elevated risk for periop complications. Patient underwent a UroLift procedure approximately a week and a half ago. Unfortunately, he developed gross hematuria with clot retention that required hand irrigation with a three-way Palomares catheter. He presents today for an (more content not included)... Normal [facility] Comment on above: Result Comment: Elec tronically Signed By: MARQUIS LOUISE MD\.br\Date and Time Signed: 11/02/24 08:40 EST\.br\Electronically Co-Signed By: Roxy Gatica\.br\Date and Time Co-Signed: 11/02/24 08:27 EST\.br\Electronically Co-Signed By: Roxy Gatica\.br\Date and Time Co-Signed: 11/02/24 08:29 EST Ambulatory Visit Summaryon 1 12-26-2023 Ambulatory Visit Summary Ambulatory Visit Summary LAURALAURIE NADIR Joy :1940 Visit Date:10/25/2024 Ambulatory Visit Instructions Your Care Team Attending Physician - MARQUIS LOUISE MD Primary Care Physician - Van Youssef MD Referring Physician - MARQUIS LOUISE MD This Is Your Medications List NIFEdipine acetaminophen-hydrocod one ([place] 325 mg-5 mg oral tablet) acyclovir apixaban [...] MARQUIS LOUISE MD Where: [facility] [address] [place] [address]- Medications What How Much When Why Instructions Unchanged acetaminophen-hydrocod one ([place] 325 mg-5 mg oral tablet) 1 Tablets [...] emptying Naus (more content not included)... Normal [facility] Inpatient Patient Summaryon 10-23-2024 Inpatient Patient Summary Inpatient Patient Summary [address] [address] Clinical Summary Person Information Name: NADIR BETH Age: 84 Years : 1940 Sex: Male PCP: Van Youssef MD Marital Status: Race: White Ethnicity: Non- or Language: Guyanese Visit Id: Visit Reason: BPH WITH URINARY OBSTRUCTION, INCOMPLETE BLADDER EMPTYING Speciality: Acuity: Enc Type: Outpatient Med Service: Surgery Arrival: 10/23/2024 13:48:15 Discharge: Dispo Type: Address: [address] [place] [phone] Provider Notes: Diagnosis: Problems Active BPH with [...] This Visit Final Med List: acetaminophen-hydrocod one ([place] 325 mg-5 mg oral tablet) 1 Tablets [...] Patient Education Information: Benign Prostatic Hyperplasia Normal [facility] Main OR Intraoperative Recor don 10-23-2024 Main OR Intraoperative Record Main OR Intraoperative Record IntraOp Document Type FTURO Summary Primary Physician: MARQUIS LOUISE MD Finalized Date/Time: 10/23/24 15:03:19 Pt. Name: BUNNY BETHCONNIE Amato./Sex: 1940 Male Med Rec #: [id number] Physician: MARQUIS LOUISE MD Financial #: [id number] Pt. Type: O Room/Bed: / Admit/Disch: 10/23/24 [...] 3 Case Attendee ADRIAN GUSTAFSON, Oliva Goel CST, Ana CHO Role Performed Surgeon - Primary Emt Driver - Primary Scrub - Primary Time In [...] Implant Implant Identification Description UR[employer]IFT Lot Number [id number] Clinical Business Analyst [employer] Catalog ???# UL2-C Expiration Date 11/30/25 [...] Oliva Goel (more content not included)... Normal [facility] Main OR Preoperative Recordo n 10-23-2024 Main OR Preoperative Record Main OR Preoperative Record Holding Area Document Type FTURO Summary Primary Physician: MARQUIS LOUISE MD Finalized Date/Time: 10/23/24 14:17:30 Pt. Name: NADIR BETH/Sex: 1940 Male Med Rec #: [id number] Physician: MARQUIS LOUISE MD Financial #: [id number] Pt. Type: O Room/Bed: / Admit/Disch: 10/23/24 [...] Complaints of Pain: No Skin Integrity Intact, [place], Warm, & Dry Vitals - EU Blood Pressure 152/78 Pulse 84 bpm Respirations 18 br/min SPO2 90 % Additional None RN Reviewed Yes Specimens Collected Last Modified By: Oliva Goel 10/23/24 14:17:29 Finalized By: Oliva Goel Document Signatures Signed By: Preeti Kaur LPN 10/23/24 14:05 Oliva Goel 10/23/24 14:17 Normal [facility] Operative Reporton 4 Operative Report [...] urethral meatus. We then placed the 20 Azerbaijani cystoscope into the bladder. Bilobar hyperplasia was [...] able to easily navigate with a 20 Azerbaijani scope. Scope was then removed and an 18 Azerbaijani Palomares catheter was placed with return of light pink urine and no clots noted. This concluded the procedure. Patient was then transferred to PACU in stable condition. PLAN: Patient will follow-up in 2 days for Palomares catheter removal. 10 cc in the balloon Follow-up in 6 to 8 weeks with IPSS at that time Normal [facility] Comment on above: Result Comment: Elec tronically Signed By: MARQUIS LOUISE MD\.br\Date and Time Signed: 10/23/24 15:06 EST Outpatient Surgery Discharge Instructionon 10-23-2024 Outpatient Surgery Discharge Instruction Outpatient Surgery Discharge Instruction [place] [id number] Patient Discharge Instructions PERSON INFORMATION Name: NADIR [...] amount of (more content not included)... Normal [facility] Ambulatory Visit Summaryon 1 12-02-2023 [...] Survey Yo (more content not included)... Normal [facility] Ambulatory Visit Summary Ambulatory Visit Summary NADIR BETH :1940 Visit Date:10/02/2024 Ambulatory Visit Instructions Your Diagnosis BPH with urinary obstruction Incomplete bladder emptying Balanitis Acquired buried penis OAB (overactive bladder) Anticoagulated Your Care Team Attending Physician - ADRIAN GUSTAFSON, MARQUIS Primary Care Physician - Pineda GUSTAFSON, Van Referring Physician - ADRIAN GUSTAFSON, [...] us for (more content not included)... Normal [facility] Urology Office/Clinic Noteon 10-02-2024 Urology [...] with voice recognition artificial intelligence software, specifically [employer], [employer] and or [employer]. 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 Normal [facility] Comment on above: Result Comment: Elec tronically Signed By: MARQUIS LOUISE MD\.br\Date and Time Signed: 10/02/24 11:43 EST\.br\Electronically Co-Signed By: Roxy Gatica.br\Date and Time Co-Signed: 10/02/24 11:21 EST\.br\Electronically Co-Signed By: Roxy Gatica\.br\Date and Time Co-Signed: 10/02/24 11:22 EST\.br\Electronically Co-Signed By: Roxy Gatica\Date and Time Co-Signed: 10/02/24 11:23 EST Inpatient Patient Summaryon 09-25-2024 Inpatient Patient Summary Inpatient Patient Summary [address] [address] Clinical Summary Person Information Name: NADIR BETH Age: 84 Years : 1940 Sex: Male PCP: Van Youssef MD Marital Status: Race: White Ethnicity: Non- or Language: Guyanese Visit Id: Visit Reason: ENLARGED PROSTATE WITH URINARY OBSTRUCTION, INCOMPLETE BLADDER EMPTYING Speciality: Acuity: Enc Type: Outpatient Med Service: Surgery Arrival: 09/25/2024 11:42:27 Discharge: Dispo Type: Address: [address] [place] [phone] Provider Notes: Diagnosis: Problems Active BPH with [...] MD Follow up: With: Address: When: MARQUIS ADRIAN [place] [address] [phone] Business (1) Comments: Follow-up in the office in 2 weeks to discuss next plan With: Address: When: MARQUIS ROAJILLIANMadeleineDAYSI [place] [address] [phone] Business (1) Patient Education Information: Benign Prostatic Hyperplasia Normal [facility] Main OR Intraoperative Recor don 09-25-2024 Main OR Intraoperative Record Main OR Intraoperative Record IntraOp Document Type FTURO Summary Primary Physician: MARQUIS LOUISE MD Finalized Date/Time: 09/25/24 13:23:58 Pt. Name: LAURAIRANADIR STEPHEN/Sex: 1940 Male Med Rec #: [id number] Physician: MARQUIS LOUISE MD Financial #: [id number] Pt. Type: O Room/Bed: / Admit/Disch: 09/25/24 [...] C KWABENA Role Performed Surgeon - Primary Emt Driver - Primary Scrub - Primary Time In [...] Goel 09/25/24 13:23 Oliva Goel 09/25/24 13:23 [facility] Main OR Preoperative Recordo n 09-25-2024 Main OR Preoperative Record Main OR Preoperative Record Holding Area Document Type FTURO Summary Primary Physician: MARQUIS LOUISE MD Finalized Date/Time: 09/25/24 13:04:51 Pt. Name: NADIR BETH/Sex: 1940 Male Med Rec #: [id number] Physician: MARQUIS LOUISE MD Financial #: [id number] Pt. Type: O Room/Bed: / Admit/Disch: 09/25/24 [...] Complaints of Pain: No Skin Integrity Intact, [place], Warm, & Dry Vitals - EU Blood Pressure Pulse Respirations SPO2 Additional None RN Reviewed Yes Specimens Collected Last Modified By: Oliva Goel 09/25/24 13:04:50 Finalized By: Oliva Goel Document Signatures Signed By: Preeti Kaur LPN 09/25/24 12:49 Oliva Goel 09/25/24 13:04 Normal [facility] Operative Reporton 4 Operative Report [...] steps Impression and Plan Counseled: Family. Normal [facility] Comment on above: Result Comment: Elec tronically Signed By: ADRIAN GUSTAFSON, MARQUIS\.br\Date and Time Signed: 09/25/24 13:27 EST Outpatient Surgery Discharge Instructionon 09-25-2024 Outpatient Surgery Discharge Instruction Outpatient Surgery Discharge Instruction [place] [id number] Patient Discharge Instructions PERSON INFORMATION Name: NADIR [...] Address: When: MARQUIS LOUISE [address] [place] [address] [phone] [employer] (1) Comments: Follow-up in the office in 2 weeks to discuss next plan With: Address: When: MARQUIS LOUISE [address] [place] [address] [phone] [employer] (1) Comment: PATIENT EDUCATION INFORMATION Instructions: Benign [...] radio frequen (more content not included)... Normal [facility] No Panel Informationon 08-24 [facility] Ambulatory Visit Summaryon 0 08-08-2024 Ambulatory Visit [...] 525 mg (more content not included)... 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 Normal [facility] Comment on above: Result Comment: Elec tronically Signed By: MARQUIS LOUISE MD\.br\Date and Time Signed: 08/08/24 11:05 EDT\.br\Electronically Co-Signed By: Roxy Gatica\.br\Date and Time Co-Signed: 08/08/24 10:46 EDT\.br\Electronically Co-Signed By: Roxy Gatica\.br\Date and Time Co-Signed: 08/08/24 10:53 EDT Office Visiton 07-05-2024 Follow-up visit [id number] Nadir Beth 1940 M Date Provider Department Center 07/05/2024 RUTHIE OWEN [facility] Comprehensiv Family History Problem Relation Age of Onset Coronary artery disease Father Family Status - Relation Status Age at Father Level of Service:16087 [place] OFFICE/OUTPATIENT ESTABLISHED MOD MDM 30 MIN Reason for Visit and Comments: Follow-up [097776] [facility] 06-20-2024 36 Regarding echo resul [...] he should have another echo at [facility] in Oct 2024, prior to his follow up with Dr. Cisneros in Nov 2024. She verbalized understanding. Echo order faxed to [facility]. [facility] 06-14-2024 36 Patients called and stating that dr. Linda told her to call and let him know that her husbands blood pressure is better and she would like a call back. [facility] 06-09-2024 36 Spoke with patient's Kervin and made sure she understood to increase labetalol per Dr. Linda. She also understands not to resume hydralazine. [facility] 06-07-2024 36 I'm Stephanie from Dr. Cisneros's office with Cardiology. Patient's daughter called and wanted to know if Dr. Linda had restarted patient's hydralazine- NOT hydroxyzine. I don't see in the note that it was restarted. Dr. Linda, or someone from his office- can you clarify this for me? Thanks so much. [facility] Follow-Upon 06-07-2024 Follow-Up [id number] rileyBunnyNadir L 1940 M Date Provider Department Center 06/07/2024 SalvadorRUTHIE THOMPSON [facility] Comprehensiv Family History Problem Relation Age of Onset Coronary artery disease Father Family Status - Relation Status Age at Father Level of Service:28757 [place] OFFICE/OUTPATIENT ESTABLISHED MOD MDM 30 MIN () Reason for Visit and Comments: Follow-up [[id number]] [facility] Telephoneon 06-07-2024 Telephone [id number] HakeemnereidaBunnyNadir L 1940 M Date Provider Department Center 06/07/2024 Francisco-IRIS GUADALUPE [facility] Comprehensiv Family History Problem Relation Age of Onset Coronary artery disease Father Family Status - Relation Status Age at Father [facility] Office Visiton 06-05-2024 Follow-up visit [id number] Steen Joy 1940 M Date Provider Department Center 06/05/2024 CLARIBEL VILLALOBOS MILKA Dominguez [facility] Family History Problem Relation Age of Onset Coronary artery disease Father Family Status - Relation Status Age at Father Level of Service:61160 [place] OFFICE/OUTPATIENT ESTABLISHED MOD MDM 30 MIN [facility] MICRO OTHER TESTSOrdered By: Francisco Bolanos on 04-15-2023 Fecal WBC Lactoferrin Negative (04/15/23 7:00 AM) Normal Negative [facility] Man Sero CHEMISTRYOrdered By: SYSTEM SYSTEM on [...] 9.8 fL Normal 6.4 - 10.8 fL [facility] HemeAutoSS Platelets (Bld) [#/Vol] 161.0 E9/L Normal 150.0 - 500.0 E9/L [facility] HemeAutoSS RBC (Bld) [#/Vol] 4.0 E12/L Low 4.3 - 5.9 E12/L [facility] HemeAutoSS WBC corrected for nucl RBC Auto (Bld) [#/Vol] 6.7 E9/L Normal 4.0 - 11.0 E9/L [facility] HemeAutoSS ALBUMINon 03-24-2023 Albumin [Mass/Vol] 3.3 g/dL Critically low 3.4-5.0 [facility] Comment on above: Performed By: #### M ERICK Faith, PHOS #### [facility] [address] [address] [address] David Magana GLYCOHEMOGLOBIN A1Con 2022 ADA RECOMMENDATION SEE BELOW Normal [facility] Comment on above: Result Comment: ADA RECOMMENDED LIMIT 4.0 - 6.0 ADA THERAPEUTIC TARGET < 7.0 ACTION SUGGESTED > 7.0 Performed By: #### A 1C #### [facility] [address] [place] [address] [address] David Magana Glucose [Mass/Vol] 108 mg/dL Normal [facility] Comment on above: Performed By: #### A 1C #### [facility] [address] [place] [address] [address] David Magana HbA1c (Bld) [Mass fraction] 5.4 % Normal 4.5-6.2 [facility] Comment on above: Performed By: #### A 1C #### [facility] [address] [place] [address] [address] David Magana PHOSPHORUSon 03-24-2023 Phosphate [Mass/Vol] 3.6 mg/dL Normal 2.6-4.7 [facility] Comment on above: Performed By: #### ERICK Jacques, PHOS #### [facility] [address] [address] [address] David Magana PROF CHEM 8 (BAS METB)on Anion gap [Moles/Vol] 11.6 mmol/L Normal [facility] Comment on above: Performed By: #### M Marcell BMP, PHOS #### [facility] [address] [place] [address] Dr. David Magana Calcium [Mass/Vol] 8.9 mg/dL Normal 8.5-10.1 [facility] Comment on above: Performed By: #### M Marcell BMP, PHOS #### [facility] [address] [place] [address] Dr. David Magana Chloride [Moles/Vol] 107 mmol/L Normal 98-107 [facility] Comment on above: Performed By: #### M Marcell BMP, PHOS #### [facility] [address] [place] [address] Dr. David Magana CO2 [Moles/Vol] 30.8 mmol/L Normal 21.0-32.0 [facility] Comment on above: Performed By: #### Ethel Faith BMP, PHOS #### [facility] [address] [place] [address] Dr. David Magana Creatinine [Mass/Vol] 1.67 mg/dL Critically high 0.70-1.30 [facility] Comment on above: Performed By: #### Ethel Faith BMP, PHOS #### [facility] [address] [place] [address] Dr. David Magana EGFR-AF PRYDEINIG 48 mL/min/1.73m2 Critically low >=60 [facility] Comment on above: Performed By: #### Ethel Faith BMP, PHOS #### [facility] [address] [place] [address] Dr. David Magana EGFR-NON AF PRYDEINIG 39 mL/min/1.73m2 Critically low >=60 [facility] Comment on above: Performed By: #### M Marcell BMP, PHOS #### [facility] [address] [place] [address] Dr. David Magana Glucose [Mass/Vol] 128 mg/dL Critically high 74-106 [facility] Comment on above: Performed By: #### M Marcell, BMP, PHOS #### [facility] [address] [place] [address] Dr. David Magana Potassium [Moles/Vol] 4.4 mmol/L Normal 3.5-5.1 [facility] Comment on above: Performed By: #### M ERICK Faith, PHOS #### [facility] [address] [place] [address] Dr. David Magana Sodium [Moles/Vol] 145 mmol/L Normal 136-145 [facility] Comment on above: Performed By: #### ERICK Jacques, PHOS #### [facility] [address] [place] [address] Dr. David Magana Urea nitrogen [Mass/Vol] 25.0 mg/dL Critically high 7.0-18.0 [facility] Comment on above: Performed By: #### ERICK Jacques, PHOS #### [facility] [address] [place] [address] Dr. David Magana Urea nitrogen/Creatinine [Mass ratio] 15.0 mg/mg Normal [facility] Comment on above: Performed By: #### ERICK Jacques, PHOS #### [facility] [address] [place] [address] Dr. David Magana VITAMIN D 25 OHon 03-24-2023 VIT D 25-OH 11.6 ng/mL Normal [facility] Comment on above: Performed By: #### C BC #### [facility] [address] [place] [address] Dr. David Magana VIT D RANGES SEE BELOW Normal [facility] Comment on above: Result Comment: <20 ng/mL Vit D deficient 20 - <30 ng/mL Vit D insufficient 30 - 100 ng/mL Vit D sufficient >100 ng/mL Potential Toxicity Performed By: #### C BC #### [facility] [address] [place] [address] Dr. David Magana CBC AUTO DIFFon 02-27-2023 BASO # 0.0 103/ul Normal 0.0-0.1 [facility] Comment on above: Performed By: #### ERICK Jacques, PHOS #### [facility] [address] [place] [address] Dr. David Magana Basophils/100 WBC (Bld) 0.5 % Normal 0.2-2.0 [facility] Comment on above: Performed By: #### M ERICK Faith, PHOS #### [facility] [address] [place] [address] Dr. David Magana EO # 0.7 103/ul Normal 0.0-0.7 [facility] Comment on above: Performed By: #### M ERICK Faith, PHOS #### [facility] [address] [place] [address] Dr. David Magana Eosinophils/100 WBC (Bld) 9.3 % Critically high 0.9-7.0 [facility] Comment on above: Performed By: #### ERICK Jacques, PHOS #### [facility] [address] [place] [address] Dr. David Magana Erythrocyte distribution width (RBC) [Ratio] 14.6 % Normal 11.0-15.0 [facility] Comment on above: Performed By: #### ERICK Jacques, PHOS #### [facility] [address] [place] [address] Dr. David Magana Hematocrit (Bld) [Volume fraction] 41.5 % Critically low 42.0-54.0 [facility] Comment on above: Performed By: #### M ERICK Faith, PHOS #### [facility] [address] [place] [address] Dr. David Magana Hemoglobin (Bld) [Mass/Vol] 13.9 g/dL Critically low 14.0-18.0 [facility] Comment on above: Performed By: #### M Marcell BMP, PHOS #### [facility] [address] [place] [address] Dr. David Magana IG # 0.02 10e3/ul Normal 0.00-0.03 [facility] Comment on above: Performed By: #### M ERICK Faith, PHOS #### [facility] [address] [place] [address] Dr. David Magana IG % 0.3 % Normal 0.0-0.5 [facility] Comment on above: Performed By: #### M Marcell BMP, PHOS #### [facility] [address] [place] [address] Dr. David Magana LYMPH # 1.0 103/ul Critically low 1.2-3.8 [facility] Comment on above: Performed By: #### M Marcell BMP, PHOS #### [facility] [address] [place] [address] Dr. David Magana Lymphocytes/100 WBC (Bld) 13.0 % Critically low 20.5-60.0 [facility] Comment on above: Performed By: #### M ERICK Faith, PHOS #### [facility] [address] [place] [address] Dr. David Magana MANUAL DIFF REQ NO Normal [facility] Comment on above: Performed By: #### ERICK Jacques, PHOS #### [facility] [address] [place] [address] Dr. David Magana MCH (RBC) [Entitic mass] 33.5 pg Normal 25.9-34.0 [facility] Comment on above: Performed By: #### M ERICK Faith, PHOS #### [facility] [address] [place] [address] Dr. David Magana MCHC (RBC) [Mass/Vol] 33.5 g/dL Normal 29.9-35.2 [facility] Comment on above: Performed By: #### M ERICK Faith, PHOS #### [facility] [address] [place] [address] Dr. David Magana MCV (RBC) [Entitic vol] 100.0 fL Critically high 80.0-94.0 [facility] Comment on above: Performed By: #### M ERICK Faith, PHOS #### [facility] [address] [place] [address] Dr. David Magana MONO # 0.8 103/ul Normal 0.3-0.8 [facility] Comment on above: Performed By: #### M ERICK Faith, PHOS #### [facility] [address] [address] [address] David Magana Monocytes/100 WBC (Bld) 10.1 % Normal 1.7-12.0 [facility] Comment on above: Performed By: #### ERICK Jacques, PHOS #### [facility] [address] [address] [address] David Magana NEUT # 5.0 103/ul Normal 1.4-6.5 [facility] Comment on above: Performed By: #### M ERICK Faith, PHOS #### [facility] [address] [place] [address] Dr. David Magana Neutrophils/100 WBC (Bld) 66.8 % Normal 43.0-75.0 [facility] Comment on above: Performed By: #### ERICK Jacques, PHOS #### [facility] [address] [place] [address] Dr. David Magana Platelet mean volume (Bld) [Entitic vol] 11.2 fL Normal 9.5-13.5 [facility] Comment on above: Performed By: #### ERICK Jacques, PHOS #### [facility] [address] [place] [address] Dr. David Magana PLT 187 103/ul Normal 150-450 [facility] Comment on above: Performed By: #### ERICK Jacques, PHOS #### [facility] [address] [place] [address] Dr. David Magana RBC 4.15 106/ul Critically low 4.70-6.10 [facility] Comment on above: Performed By: #### ERICK Jacques, PHOS #### [facility] [address] [place] [address] Dr. David Magana WBC 7.5 103/ul Normal 4.0-11.0 [facility] Comment on above: Performed By: #### ERICK Jacques, PHOS #### [facility] [address] [place] [address] Dr. David Magana PROF 14(COMP METB)on 023 Albumin [Mass/Vol] 3.5 g/dL Normal 3.4-5.0 [facility] Comment on above: Performed By: #### A 1C #### [facility] [address] [place] [address] Dr. David Magana Albumin/Globulin [Mass ratio] 1.1 {ratio} Normal [facility] Comment on above: Performed By: #### A 1C #### [facility] [address] [place] [address] Dr. David Magana ALP [Catalytic activity/Vol] 76 U/L Normal 46-116 [facility] Comment on above: Performed By: #### A 1C #### [facility] [address] [place] [address] Dr. David Magana ALT [Catalytic activity/Vol] 23 U/L Normal 16-63 [facility] Comment on above: Performed By: #### A 1C #### [facility] [address] [place] [address] Dr. David Magana Anion gap [Moles/Vol] 13.1 mmol/L Normal [facility] Comment on above: Performed By: #### A 1C #### [facility] [address] [place] [address] Dr. David Magana AST [Catalytic activity/Vol] 17 U/L Normal 15-37 [facility] Comment on above: Performed By: #### A 1C #### [facility] [address] [place] [address] Dr. David Magana Bilirubin [Mass/Vol] 0.7 mg/dL Normal 0.2-1.0 [facility] Comment on above: Performed By: #### A 1C #### [facility] [address] [place] [address] Dr. David Magana Calcium [Mass/Vol] 9.0 mg/dL Normal 8.5-10.1 [facility] Comment on above: Performed By: #### A 1C #### [facility] [address] [place] [address] Dr. David Magana Chloride [Moles/Vol] 105 mmol/L Normal 98-107 [facility] Comment on above: Performed By: #### A 1C #### [facility] [address] [address] [address] David Magana CO2 [Moles/Vol] 29.0 mmol/L Normal 21.0-32.0 [facility] Comment on above: Performed By: #### A 1C #### [facility] [address] [address] [address] David Magana Creatinine [Mass/Vol] 1.77 mg/dL Critically high 0.70-1.30 [facility] Comment on above: Performed By: #### A 1C #### [facility] [address] [address] [address] David Magana EGFR-AF PRYDEINIG 45 mL/min/1.73m2 Critically low >=60 [facility] Comment on above: Performed By: #### A 1C #### [facility] [address] [address] [address] David Magana EGFR-NON AF PRYDEINIG 37 mL/min/1.73m2 Critically low >=60 [facility] Comment on above: Performed By: #### A 1C #### [facility] [address] [address] [address] David Magana Globulin (S) [Mass/Vol] 3.3 g/dL Normal [facility] Comment on above: Performed By: #### A 1C #### [facility] [address] [address] [address] David Magana Glucose [Mass/Vol] 135 mg/dL Critically high 74-106 T [facility] Comment on above: Performed By: #### A 1C #### [facility] [address] [address] [address] David Magana Potassium [Moles/Vol] 4.1 mmol/L Normal 3.5-5.1 [facility] Comment on above: Performed By: #### A 1C #### [facility] [address] [address] [address] David Magana Protein [Mass/Vol] 6.8 g/dL Normal 6.4-8.2 [facility] Comment on above: Performed By: #### A 1C #### [facility] [address] [place] [address] Dr. David Magana Sodium [Moles/Vol] 143 mmol/L Normal 136-145 [facility] Comment on above: Performed By: #### A 1C #### [facility] [address] [place] [address] Dr. David Magana Urea nitrogen [Mass/Vol] 31.0 mg/dL Critically high 7.0-18.0 [facility] Comment on above: Performed By: #### A 1C #### [facility] [address] [place] [address] Dr. David Magana Urea nitrogen/Creatinine [Mass ratio] 17.5 mg/mg Normal [facility] Comment on above: Performed By: #### A 1C #### [facility] [address] [place] [address] Dr. David Magana PROTIMEon 02-27-2023 INR Coag (PPP) [Relative time] 0.99 {INR} Normal [facility] Comment on above: Performed By: #### A 1C #### [facility] [address] [place] [address] Dr. David Magana INR GUIDELINES SEE BELOW Normal [facility] Comment on above: Result Comment: IDANIA RED INR: 2.0 - 3.0 CONDITIONS NOT LISTED BELOW 2.5 - 3.5 FOR PROSTHETIC HEART VALVE REPLACEMENT 2.5 - 3.5 RECURRENT THROMBOSIS Performed By: #### A 1C #### [facility] [address] [place] [address] Dr. David Magana PT Coag (PPP) [Time] 10.5 s Normal 9.0-11.6 [facility] Comment on above: Performed By: #### A 1C #### [facility] [address] [place] [address] Dr. David Magana PTTon 02-27-2023 aPTT Coag (Bld) [Time] 33.0 s Normal 22.3-36.2 [facility] Comment on above: Performed By: #### P OCGLUC #### [facility] [address] [place] [address] Dr. David Magana ALBUMINon 12-28-2022 Albumin [Mass/Vol] 3.6 g/dL Normal 3.4-5.0 [facility] Comment on above: Performed By: #### C BC #### [facility] [address] [place] [address] Dr. David Magana GLYCOHEMOGLOBIN A1Con 2022 ADA RECOMMENDATION SEE BELOW Normal [facility] Comment on above: Result Comment: ADA RECOMMENDED LIMIT 4.0 - 6.0 ADA THERAPEUTIC TARGET < 7.0 ACTION SUGGESTED > 7.0 Performed By: #### P OCGLUC #### [facility] [address] [place] [address] Dr. David Magana Glucose [Mass/Vol] 140 mg/dL Normal [facility] Comment on above: Performed By: #### P OCGLUC #### [facility] [address] [place] [address] Dr. David Magana HbA1c (Bld) [Mass fraction] 6.5 % Critically high 4.5-6.2 [facility] Comment on above: Performed By: #### P OCGLUC #### [facility] [address] [place] [address] Dr. David Magana MAGNESIUMon 12-28-2022 Magnesium [Mass/Vol] 2.3 mg/dL Normal 1.8-2.4 [facility] Comment on above: Performed By: #### P OCGLUC #### [facility] [address] [place] [address] Dr. David Magana PROF CHEM 8 (BAS METB)on Anion gap [Moles/Vol] 13.2 mmol/L Normal [facility] Comment on above: Performed By: #### P OCGLUC #### [facility] [address] [place] [address] Dr. David Magana Calcium [Mass/Vol] 9.0 mg/dL Normal 8.5-10.1 [facility] Comment on above: Performed By: #### P OCGLUC #### [facility] [address] [place] [address] Dr. David Magana Chloride [Moles/Vol] 105 mmol/L Normal 98-107 [facility] Comment on above: Performed By: #### P OCGLUC #### [facility] [address] [address] [address] David Magana CO2 [Moles/Vol] 28.9 mmol/L Normal 21.0-32.0 [facility] Comment on above: Performed By: #### P OCGLUC #### [facility] [address] [address] [address] David Magana Creatinine [Mass/Vol] 1.66 mg/dL Critically high 0.70-1.30 [facility] Comment on above: Performed By: #### P OCGLUC #### [facility] [address] [place] [address] Dr. David Magana EGFR-AF PRYDEINIG 48 mL/min/1.73m2 Critically low >=60 [facility] Comment on above: Performed By: #### P OCGLUC #### [facility] [address] [place] [address] Dr. David Magana EGFR-NON AF PRYDEINIG 40 mL/min/1.73m2 Critically low >=60 [facility] Comment on above: Performed By: #### P OCGLUC #### [facility] [address] [place] [address] Dr. David Magana Glucose [Mass/Vol] 123 mg/dL Critically high 74-106 [facility] Comment on above: Performed By: #### P OCGLUC #### [facility] [address] [address] [address] David Magana Potassium [Moles/Vol] 4.1 mmol/L Normal 3.5-5.1 [facility] Comment on above: Performed By: #### P OCGLUC #### [facility] [address] [place] [address] Dr. David Magana Sodium [Moles/Vol] 143 mmol/L Normal 136-145 [facility] Comment on above: Performed By: #### P OCGLUC #### [facility] [address] [address] [address] David Magana Urea nitrogen [Mass/Vol] 29.0 mg/dL Critically high 7.0-18.0 [facility] Comment on above: Performed By: #### P OCGLUC #### [facility] [address] [place] [address] Dr. David Magana Urea nitrogen/Creatinine [Mass ratio] 17.5 mg/mg Normal [facility] Comment on above: Performed By: #### P OCGLUC #### [facility] [address] [place] [address] Dr. David Magana URINE T PROTEIN CREAT RATIOo n 12-28-2022 UR TOTAL PROTEIN <6.0 Normal <=12.0 [facility] Comment on above: Performed By: #### ERICK Jacques, PHOS #### [facility] [address] [place] [address] Dr. David Magana URINE CREAT 41.21 mg/dL Normal 20.00-300.00 [facility] Comment on above: Performed By: #### ERICK Jacques, PHOS #### [facility] [address] [place] [address] Dr. David Magana ALBUMINon 11-16-2022 Albumin [Mass/Vol] 3.3 g/dL Critically low 3.4-5.0 [facility] Comment on above: Performed By: #### C BC #### [facility] [address] [place] [address] Dr. David Magana CREATININE URINEon URINE CREAT 19.69 mg/dL Critically low 20.00-300.00 [facility] Comment on above: Performed By: #### M ERICK Faith, PHOS #### [facility] [address] [place] [address] Dr. David Magana HEMOGLOBINon 11-16-2022 Hemoglobin (Bld) [Mass/Vol] 14.9 g/dL Normal 14.0-18.0 [facility] Comment on above: Performed By: #### ERICK Jacques, PHOS #### [facility] [address] [place] [address] Dr. David Magana MAGNESIUMon 11-16-2022 Magnesium [Mass/Vol] 2.2 mg/dL Normal 1.8-2.4 [facility] Comment on above: Performed By: #### C BC #### [facility] [address] [place] [address] Dr. David Magana PHOSPHORUSon 11-16-2022 Phosphate [Mass/Vol] 3.9 mg/dL Normal 2.6-4.7 [facility] Comment on above: Performed By: #### C BC #### [facility] [address] [place] [address] Dr. David Magana PROF CHEM 8 (BAS METB)on Anion gap [Moles/Vol] 11.9 mmol/L Normal [facility] Comment on above: Performed By: #### C BC #### [facility] [address] [place] [address] Dr. David Magana Calcium [Mass/Vol] 8.8 mg/dL Normal 8.5-10.1 [facility] Comment on above: Performed By: #### C BC #### [facility] [address] [place] [address] Dr. David Magana Chloride [Moles/Vol] 104 mmol/L Normal 98-107 [facility] Comment on above: Performed By: #### C BC #### [facility] [address] [place] [address] Dr. David Magana CO2 [Moles/Vol] 27.4 mmol/L Normal 21.0-32.[address] [facility] Comment on above: Performed By: #### C BC #### [facility] [address] [place] [address] Dr. David Magana Creatinine [Mass/Vol] 1.68 mg/dL Critically high 0.70-1.30 [facility] Comment on above: Performed By: #### C BC #### [facility] [address] [place] [address] Dr. David Magana EGFR-AF PRYDEINIG 48 mL/min/1.73m2 Critically low >=60 [facility] Comment on above: Performed By: #### C BC #### [facility] [address] [address] [address] David Magana EGFR-NON AF PRYDEINIG 39 mL/min/1.73m2 Critically low >=60 [facility] Comment on above: Performed By: #### C BC #### [facility] [address] [address] [address] David Magana Glucose [Mass/Vol] 212 mg/dL Critically high 74-106 [facility] Comment on above: Performed By: #### C BC #### [facility] [address] [address] [address] David Magana Potassium [Moles/Vol] 4.3 mmol/L Normal 3.5-5.1 [facility] Comment on above: Performed By: #### C BC #### [facility] [address] [address] [address] David Magana Sodium [Moles/Vol] 139 mmol/L Normal 136-145 [facility] Comment on above: Performed By: #### C BC #### [facility] [address] [address] [address] David Magana Urea nitrogen [Mass/Vol] 25.0 mg/dL Critically high 7.0-18.0 [facility] Comment on above: Performed By: #### C BC #### [facility] [address] [address] [address] David Magana Urea nitrogen/Creatinine [Mass ratio] 14.9 mg/mg Normal [facility] Comment on above: Performed By: #### C BC #### [facility] [address] [address] [address] David Magana PROTEIN RAND URINEon 023 UR PROT <5.0 Normal <=11.9 [facility] Comment on above: Performed By: #### M G, BMP, PHOS #### [facility] [address] [address] [address] David Magana US KARI DOP LEG [...] CLOVER PEREZ Date: 2022-11-02 16:21 Normal [facility] BNPon 07-22-2022 Natriuretic peptide B (Bld) [Mass/Vol] 2143.0 pg/mL Critically high <=1,800.0 [facility] Comment on above: Performed By: #### M G, BMP, PHOS #### [facility] [address] [place] [address] Dr. David Magana CBC AUTO DIFFon 07-22-2022 BASO # 0.0 103/ul Normal 0.0-0.1 [facility] Comment on above: Performed By: #### A 1C #### [facility] [address] [place] [address] Dr. David Magana Basophils/100 WBC (Bld) 0.3 % Normal 0.2-2.0 [facility] Comment on above: Performed By: #### A 1C #### [facility] [address] [place] [address] Dr. David Magana EO # 0.3 103/ul Normal 0.0-0.7 [facility] Comment on above: Performed By: #### A 1C #### [facility] [address] [place] [address] Dr. David Magana Eosinophils/100 WBC (Bld) 2.4 % Normal 0.9-7.0 [facility] Comment on above: Performed By: #### A 1C #### [facility] [address] [place] [address] Dr. David Magana Erythrocyte distribution width (RBC) [Ratio] 13.4 % Normal 11.0-15.0 [facility] Comment on above: Performed By: #### A 1C #### [facility] [address] [place] [address] Dr. David Magana Hematocrit (Bld) [Volume fraction] 42.7 % Normal 42.0-54.0 [facility] Comment on above: Performed By: #### A 1C #### [facility] [address] [place] [address] Dr. David Magana Hemoglobin (Bld) [Mass/Vol] 14.2 g/dL Normal 14.0-18.0 [facility] Comment on above: Performed By: #### A 1C #### [facility] [address] [place] [address] Dr. David Magana IG # 0.18 10e3/ul Critically high 0.00-0.03 [facility] Comment on above: Performed By: #### A 1C #### [facility] [address] [place] [address] Dr. David Magana IG % 1.6 % Critically high 0.0-0.5 [facility] Comment on above: Performed By: #### A 1C #### [facility] [address] [place] [address] Dr. David Magana LYMPH # 0.9 103/ul Critically low 1.2-3.8 [facility] Comment on above: Performed By: #### A 1C #### [facility] [address] [place] [address] Dr. David Magana Lymphocytes/100 WBC (Bld) 8.1 % Critically low 20.5-60.0 [facility] Comment on above: Performed By: #### A 1C #### [facility] [address] [place] [address] Dr. David Magana MANUAL DIFF REQ NO Normal [facility] Comment on above: Performed By: #### A 1C #### [facility] [address] [place] [address] Dr. David Magana MCH (RBC) [Entitic mass] 33.3 pg Normal 25.9-34.0 [facility] Comment on above: Performed By: #### A 1C #### [facility] [address] [place] [address] Dr. David Magana MCHC (RBC) [Mass/Vol] 33.3 g/dL Normal 29.9-35.2 [facility] Comment on above: Performed By: #### A 1C #### [facility] [address] [address] [address] David Magana MCV (RBC) [Entitic vol] 100.2 fL Critically high 80.0-94.0 [facility] Comment on above: Performed By: #### A 1C #### [facility] [address] [place] [address] Dr. David Magana MONO # 1.2 103/ul Critically high 0.3-0.8 [facility] Comment on above: Performed By: #### A 1C #### [facility] [address] [place] [address] Dr. David Magana Monocytes/100 WBC (Bld) 10.5 % Normal 1.7-12.0 [facility] Comment on above: Performed By: #### A 1C #### [facility] [address] [place] [address] Dr. David Magana NEUT # 8.9 103/ul Critically high 1.4-6.5 [facility] Comment on above: Performed By: #### A 1C #### [facility] [address] [place] [address] Dr. David Magana Neutrophils/100 WBC (Bld) 77.1 % Critically high 43.0-75.0 [facility] Comment on above: Performed By: #### A 1C #### [facility] [address] [place] [address] Dr. David Magana Platelet mean volume (Bld) [Entitic vol] 11.3 fL Normal 9.5-13.5 [facility] Comment on above: Performed By: #### A 1C #### [facility] [address] [place] [address] Dr. David Magana PLT 175 103/ul Normal 150-450 [facility] Comment on above: Performed By: #### A 1C #### [facility] [address] [place] [address] Dr. Dvaid Magana RBC 4.26 106/ul Critically low 4.70-6.10 [facility] Comment on above: Performed By: #### A 1C #### [facility] [address] [address] [address] David Magana WBC 11.5 103/ul Critically high 4.0-11.0 [facility] Comment on above: Performed By: #### A 1C #### [facility] [address] [place] [address] Dr. David Magana PROF 14(COMP METB)on 022 Albumin [Mass/Vol] 2.6 g/dL Critically low 3.4-5.0 [facility] Comment on above: Performed By: #### M ERICK Faith, PHOS #### [facility] [address] [place] [address] Dr. David Magana Albumin/Globulin [Mass ratio] 0.9 {ratio} Normal [facility] Comment on above: Performed By: #### ERICK Jacques, PHOS #### [facility] [address] [address] [address] David Magana ALP [Catalytic activity/Vol] 49 U/L Normal 46-116 [facility] Comment on above: Performed By: #### ERICK Jacques, PHOS #### [facility] [address] [place] [address] Dr. David Magana ALT [Catalytic activity/Vol] 25 U/L Normal 16-63 [facility] Comment on above: Performed By: #### ERICK Jacques, PHOS #### [facility] [address] [address] [address] David Magana Anion gap [Moles/Vol] 12.8 mmol/L Normal [facility] Comment on above: Performed By: #### ERICK Jacques, PHOS #### [facility] [address] [place] [address] Dr. David Magana AST [Catalytic activity/Vol] 9 U/L Critically low 15-37 [facility] Comment on above: Performed By: #### ERICK Jacques, PHOS #### [facility] [address] [place] [address] Dr. David Magana Bilirubin [Mass/Vol] 0.5 mg/dL Normal 0.2-1.0 [facility] Comment on above: Performed By: #### ERICK Jacques, PHOS #### [facility] [address] [address] [address] David Magana Calcium [Mass/Vol] 8.3 mg/dL Critically low 8.5-10.1 [facility] Comment on above: Performed By: #### ERICK Jacques, PHOS #### [facility] [address] [place] [address] Dr. David Magana Chloride [Moles/Vol] 105 mmol/L Normal 98-107 [facility] Comment on above: Performed By: #### ERICK Jacques, PHOS #### [facility] [address] [place] [address] Dr. David Magana CO2 [Moles/Vol] 24.2 mmol/L Normal 21.0-32.0 [facility] Comment on above: Performed By: #### ERICK Jacques, PHOS #### [facility] [address] [place] [address] Dr. David Magana Creatinine [Mass/Vol] 1.28 mg/dL Normal 0.70-1.30 [facility] Comment on above: Performed By: #### ERICK Jacques, PHOS #### [facility] [address] [place] [address] Dr. David Magana EGFR-AF PRYDEINIG >60 Normal >=[address] [facility] Comment on above: Performed By: #### ERICK Jacques, PHOS #### [facility] [address] [place] [address] Dr. David Magana EGFR-NON AF PRYDEINIG 54 mL/min/1.73m2 Critically low >=60 [facility] Comment on above: Performed By: #### M ERICK Faith, PHOS #### [facility] [address] [place] [address] Dr. David Magana Globulin (S) [Mass/Vol] 2.9 g/dL Normal [facility] Comment on above: Performed By: #### M ERICK Faith, PHOS #### [facility] [address] [address] [address] David Magana Glucose [Mass/Vol] 205 mg/dL Critically high 74-106 [facility] Comment on above: Performed By: #### M G, BMP, PHOS #### [facility] [address] [place] [address] Dr. David Magana Potassium [Moles/Vol] 4.0 mmol/L Normal 3.5-5.1 [facility] Comment on above: Performed By: #### M G, BMP, PHOS #### [facility] [address] [place] [address] Dr. David Magana Protein [Mass/Vol] 5.5 g/dL Critically low 6.4-8.2 [facility] Comment on above: Performed By: #### M G, BMP, PHOS #### [facility] [address] [place] [address] Dr. David Magana Sodium [Moles/Vol] 138 mmol/L Normal 136-145 [facility] Comment on above: Performed By: #### M G, BMP, PHOS #### [facility] [address] [place] [address] Dr. David Magana Urea nitrogen [Mass/Vol] 36.0 mg/dL Critically high 7.0-18.0 [facility] Comment on above: Performed By: #### M G, BMP, PHOS #### [facility] [address] [place] [address] Dr. David Magana Urea nitrogen/Creatinine [Mass ratio] 28.1 mg/mg Normal [facility] Comment on above: Performed By: #### M G, BMP, PHOS #### [facility] [address] [place] [address] Dr. David Magana BNPon 07-21-2022 Natriuretic peptide B (Bld) [Mass/Vol] 3485.0 pg/mL Critically high <=1,800.0 [facility] Comment on above: Result Comment: repe ated Performed By: #### A 1C #### [facility] [address] [address] [address] David Magana CBC AUTO DIFFon 07-21-2022 BASO # 0.0 103/ul Normal 0.0-0.1 [facility] Comment on above: Performed By: #### C BC #### [facility] [address] [address] [address] David Magana Basophils/100 WBC (Bld) 0.3 % Normal 0.2-2.0 [facility] Comment on above: Performed By: #### C BC #### [facility] [address] [address] [address] David Magana EO # 0.2 103/ul Normal 0.0-0.7 [facility] Comment on above: Performed By: #### C BC #### [facility] [address] [place] [address] Dr. David Magana Eosinophils/100 WBC (Bld) 1.9 % Normal 0.9-7.0 [facility] Comment on above: Performed By: #### C BC #### [facility] [address] [place] [address] Dr. David Magana Erythrocyte distribution width (RBC) [Ratio] 13.4 % Normal 11.0-15.0 [facility] Comment on above: Performed By: #### C BC #### [facility] [address] [place] [address] Dr. David Magana Hematocrit (Bld) [Volume fraction] 42.5 % Normal 42.0-54.0 [facility] Comment on above: Performed By: #### C BC #### [facility] [address] [place] [address] Dr. David Magana Hemoglobin (Bld) [Mass/Vol] 14.2 g/dL Normal 14.0-18.0 [facility] Comment on above: Performed By: #### C BC #### [facility] [address] [place] [address] Dr. David Magana IG # 0.22 10e3/ul Critically high 0.00-0.03 [facility] Comment on above: Performed By: #### C BC #### [facility] [address] [address] [address] David Magana IG % 2.1 % Critically high 0.0-0.5 [facility] Comment on above: Performed By: #### C BC #### [facility] [address] [address] [address] David Magana LYMPH # 0.8 103/ul Critically low 1.2-3.8 [facility] Comment on above: Performed By: #### C BC #### [facility] [address] [place] [address] Dr. David Magana Lymphocytes/100 WBC (Bld) 7.7 % Critically low 20.5-60.0 [facility] Comment on above: Performed By: #### C BC #### [facility] [address] [place] [address] Dr. David Magana MANUAL DIFF REQ NO Normal [facility] Comment on above: Performed By: #### C BC #### [facility] [address] [place] [address] Dr. David Magana MCH (RBC) [Entitic mass] 33.0 pg Normal 25.9-34.0 [facility] Comment on above: Performed By: #### C BC #### [facility] [address] [place] [address] Dr. David Magana MCHC (RBC) [Mass/Vol] 33.4 g/dL Normal 29.9-35.2 [facility] Comment on above: Performed By: #### C BC #### [facility] [address] [place] [address] Dr. David Magana MCV (RBC) [Entitic vol] 98.8 fL Critically high 80.0-94.0 [facility] Comment on above: Performed By: #### C BC #### [facility] [address] [place] [address] Dr. David Magana MONO # 1.0 103/ul Critically high 0.3-0.8 [facility] Comment on above: Performed By: #### C BC #### [facility] [address] [address] [address] David Magana Monocytes/100 WBC (Bld) 9.7 % Normal 1.7-12.0 [facility] Comment on above: Performed By: #### C BC #### [facility] [address] [address] [address] David Magana NEUT # 8.1 103/ul Critically high 1.4-6.5 [facility] Comment on above: Performed By: #### C BC #### [facility] [address] [address] [address] David Magana Neutrophils/100 WBC (Bld) 78.3 % Critically high 43.0-75.0 [facility] Comment on above: Performed By: #### C BC #### [facility] [address] [place] [address] Dr. David Magana Platelet mean volume (Bld) [Entitic vol] 10.7 fL Normal 9.5-13.5 [facility] Comment on above: Performed By: #### C BC #### [facility] [address] [place] [address] Dr. David Magana PLT 177 103/ul Normal 150-450 [facility] Comment on above: Performed By: #### C BC #### [facility] [address] [place] [address] Dr. David Magana RBC 4.30 106/ul Critically low 4.70-6.10 [facility] Comment on above: Performed By: #### C BC #### [facility] [address] [place] [address] Dr. David Magana WBC 10.4 103/ul Normal 4.0-11.0 [facility] Comment on above: Performed By: #### C BC #### [facility] [address] [place] [address] Dr. David Magana PROF 14(COMP METB)on 022 Albumin [Mass/Vol] 2.6 g/dL Critically low 3.4-5.0 [facility] Comment on above: Performed By: #### A 1C #### [facility] [address] [place] [address] Dr. David Magana Albumin/Globulin [Mass ratio] 1.0 {ratio} Normal [facility] Comment on above: Performed By: #### A 1C #### [facility] [address] [place] [address] Dr. David Magana ALP [Catalytic activity/Vol] 50 U/L Normal 46-116 [facility] Comment on above: Performed By: #### A 1C #### [facility] [address] [place] [address] Dr. David Magana ALT [Catalytic activity/Vol] 28 U/L Normal 16-63 [facility] Comment on above: Performed By: #### A 1C #### [facility] [address] [place] [address] Dr. David Magana Anion gap [Moles/Vol] 11.4 mmol/L Normal [facility] Comment on above: Performed By: #### A 1C #### [facility] [address] [place] [address] Dr. David Magana AST [Catalytic activity/Vol] 13 U/L Critically low 15-37 [facility] Comment on above: Performed By: #### A 1C #### [facility] [address] [place] [address] Dr. David Magana Bilirubin [Mass/Vol] 0.4 mg/dL Normal 0.2-1.0 [facility] Comment on above: Performed By: #### A 1C #### [facility] [address] [place] [address] Dr. David Magana Calcium [Mass/Vol] 8.4 mg/dL Critically low 8.5-10.1 [facility] Comment on above: Performed By: #### A 1C #### [facility] [address] [place] [address] Dr. David Magana Chloride [Moles/Vol] 107 mmol/L Normal 98-107 [facility] Comment on above: Performed By: #### A 1C #### [facility] [address] [place] [address] Dr. David Magana CO2 [Moles/Vol] 24.6 mmol/L Normal 21.0-32.0 [facility] Comment on above: Performed By: #### A 1C #### [facility] [address] [place] [address] Dr. David Magana Creatinine [Mass/Vol] 1.26 mg/dL Normal 0.70-1.30 [facility] Comment on above: Performed By: #### A 1C #### [facility] [address] [place] [address] Dr. David Magana EGFR-AF PRYDEINIG >60 Normal >=60 [facility] Comment on above: Performed By: #### A 1C #### [facility] [address] [place] [address] Dr. David Magana EGFR-NON AF PRYDEINIG 55 mL/min/1.73m2 Critically low >=60 [facility] Comment on above: Performed By: #### A 1C #### [facility] [address] [place] [address] Dr. Davdi Magana Globulin (S) [Mass/Vol] 2.7 g/dL Normal [facility] Comment on above: Performed By: #### A 1C #### [facility] [address] [place] [address] Dr. David Magana Glucose [Mass/Vol] 203 mg/dL Critically high 74-106 [facility] Comment on above: Performed By: #### A 1C #### [facility] [address] [place] [address] Dr. David Magana Potassium [Moles/Vol] 4.0 mmol/L Normal 3.5-5.1 [facility] Comment on above: Performed By: #### A 1C #### [facility] [address] [place] [address] Dr. David Magana Protein [Mass/Vol] 5.3 g/dL Critically low 6.4-8.2 [facility] Comment on above: Performed By: #### A 1C #### [facility] [address] [place] [address] Dr. David Magana Sodium [Moles/Vol] 139 mmol/L Normal 136-145 [facility] Comment on above: Performed By: #### A 1C #### [facility] [address] [place] [address] Dr. David Magana Urea nitrogen [Mass/Vol] 33.0 mg/dL Critically high 7.0-18.0 [facility] Comment on above: Performed By: #### A 1C #### [facility] [address] [place] [address] Dr. David Magana Urea nitrogen/Creatinine [Mass ratio] 26.2 mg/mg Normal [facility] Comment on above: Performed By: #### A 1C #### [facility] [address] [place] [address] Dr. David Magana BNPon 07-20-2022 Natriuretic peptide B (Bld) [Mass/Vol] 7478.0 pg/mL Critically high <=1,800.0 [facility] Comment on above: Performed By: #### A 1C #### [facility] [address] [place] [address] Dr. David Magana CBC AUTO DIFFon 07-20-2022 BASO # 0.1 103/ul Normal 0.0-0.1 [facility] Comment on above: Performed By: #### ERICK Jacques PHOS #### [facility] [address] [place] [address] Dr. David Magana Basophils/100 WBC (Bld) 0.8 % Normal 0.2-2.0 [facility] Comment on above: Performed By: #### ERICK Jacques PHOS #### [facility] [address] [place] [address] Dr. David Magana EO # 0.1 103/ul Normal 0.0-0.7 [facility] Comment on above: Performed By: #### ERICK Jacques PHOS #### [facility] [address] [place] [address] Dr. David Magana Eosinophils/100 WBC (Bld) 0.6 % Critically low 0.9-7.0 [facility] Comment on above: Performed By: #### M G, BMP, PHOS #### [facility] [address] [place] [address] Dr. David Magana Erythrocyte distribution width (RBC) [Ratio] 13.4 % Normal 11.0-15.0 [facility] Comment on above: Performed By: #### M G, BMP, PHOS #### [facility] [address] [place] [address] Dr. David Magana Hematocrit (Bld) [Volume fraction] 43.2 % Normal 42.0-54.0 [facility] Comment on above: Performed By: #### M G, BMP, PHOS #### [facility] [address] [place] [address] Dr. David Magana Hemoglobin (Bld) [Mass/Vol] 14.2 g/dL Normal 14.0-18.0 [facility] Comment on above: Performed By: #### M G, BMP, PHOS #### [facility] [address] [place] [address] Dr. David Magana IG # 0.21 10e3/ul Critically high 0.00-0.03 [facility] Comment on above: Performed By: #### M G, BMP, PHOS #### [facility] [address] [place] [address] Dr. David Magana IG % 2.0 % Critically high 0.0-0.5 [facility] Comment on above: Performed By: #### M G, BMP, PHOS #### [facility] [address] [place] [address] Dr. David Magana LYMPH # 0.8 103/ul Critically low 1.2-3.8 [facility] Comment on above: Performed By: #### M G, BMP, PHOS #### [facility] [address] [place] [address] Dr. David Magana Lymphocytes/100 WBC (Bld) 7.7 % Critically low 20.5-60.0 [facility] Comment on above: Performed By: #### M G, BMP, PHOS #### [facility] [address] [place] [address] Dr. David Magana MANUAL DIFF REQ NO Normal [facility] Comment on above: Performed By: #### M ERICK Faith, PHOS #### [facility] [address] [place] [address] Dr. David Magana MCH (RBC) [Entitic mass] 33.2 pg Normal 25.9-34.0 [facility] Comment on above: Performed By: #### M ERICK Faith, PHOS #### [facility] [address] [place] [address] Dr. David Magana MCHC (RBC) [Mass/Vol] 32.9 g/dL Normal 29.9-35.2 [facility] Comment on above: Performed By: #### ERICK Jacques, PHOS #### [facility] [address] [place] [address] Dr. David Magana MCV (RBC) [Entitic vol] 100.9 fL Critically high 80.0-94.0 [facility] Comment on above: Performed By: #### ERICK Jacques, PHOS #### [facility] [address] [place] [address] Dr. David Magana MONO # 1.0 103/ul Critically high 0.3-0.8 [facility] Comment on above: Performed By: #### ERICK Jacques, PHOS #### [facility] [address] [place] [address] Dr. David Magana Monocytes/100 WBC (Bld) 10.0 % Normal 1.7-12.0 [facility] Comment on above: Performed By: #### ERICK Jacques, PHOS #### [facility] [address] [place] [address] Dr. David Magana NEUT # 8.1 103/ul Critically high 1.4-6.5 [facility] Comment on above: Performed By: #### M ERICK Faith, PHOS #### [facility] [address] [place] [address] Dr. David Magana Neutrophils/100 WBC (Bld) 78.9 % Critically high 43.0-75.0 [facility] Comment on above: Performed By: #### M ERICK Faith, PHOS #### [facility] [address] [address] [address] David Magana Platelet mean volume (Bld) [Entitic vol] 10.8 fL Normal 9.5-13.5 [facility] Comment on above: Performed By: #### M ERICK Faith, PHOS #### [facility] [address] [address] [address] David Magana PLT 172 103/ul Normal 150-450 [facility] Comment on above: Performed By: #### M Marcell, ERICK, PHOS #### [facility] [address] [address] [address] David Magana RBC 4.28 106/ul Critically low 4.70-6.10 [facility] Comment on above: Performed By: #### M ERICK Faith, PHOS #### [facility] [address] [place] [address] Dr. David Magana WBC 10.3 103/ul Normal 4.0-11.0 [facility] Comment on above: Performed By: #### ERICK Jacques, PHOS #### [facility] [address] [place] [address] Dr. David Magana CULTURE URINEon 07-20-2022 CULTURE [...] F Trimethoprim/Sulfameth oxazole >=320 R F Normal [facility] Comment on above: Performed By: #### ERICK Jacques, PHOS #### [facility] [address] [place] [address] Dr. David Magana PROF 14(COMP METB)on 022 Albumin [Mass/Vol] 2.6 g/dL Critically low 3.4-5.0 [facility] Comment on above: Performed By: #### A 1C #### [facility] [address] [place] [address] Dr. David Magana Albumin/Globulin [Mass ratio] 0.9 {ratio} Normal [facility] Comment on above: Performed By: #### A 1C #### [facility] [address] [place] [address] Dr. David Magana ALP [Catalytic activity/Vol] 48 U/L Normal 46-116 [facility] Comment on above: Performed By: #### A 1C #### [facility] [address] [place] [address] Dr. David Magana ALT [Catalytic activity/Vol] 27 U/L Normal 16-63 [facility] Comment on above: Performed By: #### A 1C #### [facility] [address] [place] [address] Dr. David Magana Anion gap [Moles/Vol] 13.4 mmol/L Normal [facility] Comment on above: Performed By: #### A 1C #### [facility] [address] [place] [address] Dr. David Magana AST [Catalytic activity/Vol] 22 U/L Normal 15-37 [facility] Comment on above: Performed By: #### A 1C #### [facility] [address] [place] [address] Dr. David Magana Bilirubin [Mass/Vol] 0.5 mg/dL Normal 0.2-1.0 [facility] Comment on above: Performed By: #### A 1C #### [facility] [address] [place] [address] Dr. David Magana Calcium [Mass/Vol] 8.3 mg/dL Critically low 8.5-10.1 [facility] Comment on above: Performed By: #### A 1C #### [facility] [address] [place] [address] Dr. David Magana Chloride [Moles/Vol] 105 mmol/L Normal 98-107 [facility] Comment on above: Performed By: #### A 1C #### [facility] [address] [place] [address] Dr. David Magana CO2 [Moles/Vol] 21.0 mmol/L Normal 21.0-32.0 [facility] Comment on above: Performed By: #### A 1C #### [facility] [address] [place] [address] Dr. David Magana Creatinine [Mass/Vol] 1.38 mg/dL Critically high 0.70-1.30 [facility] Comment on above: Performed By: #### A 1C #### [facility] [address] [place] [address] Dr. David Magana EGFR-AF PRYDEINIG 60 mL/min/1.73m2 Normal >=60 [facility] Comment on above: Performed By: #### A 1C #### [facility] [address] [place] [address] Dr. David Magana EGFR-NON AF PRYDEINIG 49 mL/min/1.73m2 Critically low >=60 [facility] Comment on above: Performed By: #### A 1C #### [facility] [address] [place] [address] Dr. David Magana Globulin (S) [Mass/Vol] 2.8 g/dL Normal [facility] Comment on above: Performed By: #### A 1C #### [facility] [address] [place] [address] Dr. David Magana Glucose [Mass/Vol] 156 mg/dL Critically high 74-106 [facility] Comment on above: Performed By: #### A 1C #### [facility] [address] [address] [address] David Magana Potassium [Moles/Vol] 4.4 mmol/L Normal 3.5-5.1 [facility] Comment on above: Performed By: #### A 1C #### [facility] [address] [place] [address] Dr. David Magana Protein [Mass/Vol] 5.4 g/dL Critically low 6.4-8.2 [facility] Comment on above: Performed By: #### A 1C #### [facility] [address] [place] [address] Dr. David Magana Sodium [Moles/Vol] 135 mmol/L Critically low 136-145 [facility] Comment on above: Performed By: #### A 1C #### [facility] [address] [place] [address] Dr. David Magana Urea nitrogen [Mass/Vol] 40.0 mg/dL Critically high 7.0-18.0 [facility] Comment on above: Performed By: #### A 1C #### [facility] [address] [place] [address] Dr. David Magana Urea nitrogen/Creatinine [Mass ratio] 29.0 mg/mg Normal [facility] Comment on above: Performed By: #### A 1C #### [facility] [address] [place] [address] Dr. David Magana BNPon 07-19-2022 Natriuretic peptide B (Bld) [Mass/Vol] 11055.0 pg/mL Critically high <=1,800.0 [facility] Comment on above: Performed By: #### C VDTB #### [facility] [address] [place] [address] Dr. David Magana CBC AUTO DIFFon 07-19-2022 BASO # 0.0 103/ul Normal 0.0-0.1 [facility] Comment on above: Performed By: #### C BC #### [facility] [address] [place] [address] Dr. David Magana Basophils/100 WBC (Bld) 0.3 % Normal 0.2-2.0 [facility] Comment on above: Performed By: #### C BC #### [facility] [address] [place] [address] Dr. David Magana EO # 0.0 103/ul Normal 0.0-0.7 [facility] Comment on above: Performed By: #### C BC #### [facility] [address] [place] [address] Dr. David Magana Eosinophils/100 WBC (Bld) 0.2 % Critically low 0.9-7.0 [facility] Comment on above: Performed By: #### C BC #### [facility] [address] [place] [address] Dr. David Magana Erythrocyte distribution width (RBC) [Ratio] 13.4 % Normal 11.0-15.0 [facility] Comment on above: Performed By: #### C BC #### [facility] [address] [address] [address] David Magana Hematocrit (Bld) [Volume fraction] 43.4 % Normal 42.0-54.0 [facility] Comment on above: Performed By: #### C BC #### [facility] [address] [place] [address] Dr. David Magana Hemoglobin (Bld) [Mass/Vol] 14.6 g/dL Normal 14.0-18.0 [facility] Comment on above: Performed By: #### C BC #### [facility] [address] [place] [address] Dr. David Magana IG # 0.18 10e3/ul Critically high 0.00-0.03 [facility] Comment on above: Performed By: #### C BC #### [facility] [address] [place] [address] Dr. David Magana IG % 1.5 % Critically high 0.0-0.5 [facility] Comment on above: Performed By: #### C BC #### [facility] [address] [place] [address] Dr. David Magana LYMPH # 0.8 103/ul Critically low 1.2-3.8 [facility] Comment on above: Performed By: #### C BC #### [facility] [address] [place] [address] Dr. David Magana Lymphocytes/100 WBC (Bld) 6.6 % Critically low 20.5-60.0 [facility] Comment on above: Performed By: #### C BC #### [facility] [address] [place] [address] Dr. David Magana MANUAL DIFF REQ NO Normal [facility] Comment on above: Performed By: #### C BC #### [facility] [address] [place] [address] Dr. David Magana MCH (RBC) [Entitic mass] 33.7 pg Normal 25.9-34.0 [facility] Comment on above: Performed By: #### C BC #### [facility] [address] [place] [address] Dr. David Magana MCHC (RBC) [Mass/Vol] 33.6 g/dL Normal 29.9-35.2 [facility] Comment on above: Performed By: #### C BC #### [facility] [address] [place] [address] Dr. David Magana MCV (RBC) [Entitic vol] 100.2 fL Critically high 80.0-94.0 [facility] Comment on above: Performed By: #### C BC #### [facility] [address] [place] [address] Dr. David Magana MONO # 1.1 103/ul Critically high 0.3-0.8 [facility] Comment on above: Performed By: #### C BC #### [facility] [address] [place] [address] Dr. David Magana Monocytes/100 WBC (Bld) 9.3 % Normal 1.7-12.0 [facility] Comment on above: Performed By: #### C BC #### [facility] [address] [place] [address] Dr. David Magana NEUT # 9.6 103/ul Critically high 1.4-6.5 [facility] Comment on above: Performed By: #### C BC #### [facility] [address] [place] [address] Dr. David Magana Neutrophils/100 WBC (Bld) 82.1 % Critically high 43.0-75.0 [facility] Comment on above: Performed By: #### C BC #### [facility] [address] [place] [address] Dr. David Magana Platelet mean volume (Bld) [Entitic vol] 10.8 fL Normal 9.5-13.5 [facility] Comment on above: Performed By: #### C BC #### [facility] [address] [place] [address] Dr. David Magana PLT 202 103/ul Normal 150-450 [facility] Comment on above: Performed By: #### C BC #### [facility] [address] [place] [address] Dr. David Magana RBC 4.33 106/ul Critically low 4.70-6.10 [facility] Comment on above: Performed By: #### C BC #### [facility] [address] [place] [address] Dr. David Magana WBC 11.7 103/ul Critically high 4.0-11.[address] [facility] Comment on above: Performed By: #### C BC #### [facility] [address] [place] [address] Dr. David Magana PROF 14(COMP METB)on 022 Albumin [Mass/Vol] 3.4 g/dL Normal 3.4-5.0 [facility] Comment on above: Performed By: #### A 1C #### [facility] [address] [place] [address] Dr. David Magana Albumin/Globulin [Mass ratio] 1.1 {ratio} Normal [facility] Comment on above: Performed By: #### A 1C #### [facility] [address] [place] [address] Dr. David Magana ALP [Catalytic activity/Vol] 63 U/L Normal 46-116 [facility] Comment on above: Performed By: #### A 1C #### [facility] [address] [place] [address] Dr. David Magana ALT [Catalytic activity/Vol] 34 U/L Normal 16-63 [facility] Comment on above: Performed By: #### A 1C #### [facility] [address] [place] [address] Dr. David Magana Anion gap [Moles/Vol] 20.9 mmol/L Normal [facility] Comment on above: Performed By: #### A 1C #### [facility] [address] [place] [address] Dr. David Magana AST [Catalytic activity/Vol] 18 U/L Normal 15-37 [facility] Comment on above: Performed By: #### A 1C #### [facility] [address] [address] [address] David Magana Bilirubin [Mass/Vol] 0.5 mg/dL Normal 0.2-1.0 [facility] Comment on above: Performed By: #### A 1C #### [facility] [address] [address] [address] David Magana Calcium [Mass/Vol] 8.5 mg/dL Normal 8.5-10.1 [facility] [place] [facility] Comment on above: Performed By: #### A 1C #### [facility] [address] [place] [address] Dr. David Magana Chloride [Moles/Vol] 99 mmol/L Normal 98-107 [facility] Comment on above: Performed By: #### A 1C #### [facility] [address] [place] [address] Dr. David Magana CO2 [Moles/Vol] 19.1 mmol/L Critically low 21.0-32.0 [facility] Comment on above: Performed By: #### A 1C #### [facility] [address] [place] [address] Dr. David Magana Creatinine [Mass/Vol] 1.80 mg/dL Critically high 0.70-1.30 [facility] Comment on above: Performed By: #### A 1C #### [facility] [address] [place] [address] Dr. David Magana EGFR-AF PRYDEINIG 44 mL/min/1.73m2 Critically low >=60 [facility] Comment on above: Performed By: #### A 1C #### [facility] [address] [address] [address] David Magana EGFR-NON AF PRYDEINIG 36 mL/min/1.73m2 Critically low >=60 [facility] Comment on above: Performed By: #### A 1C #### [facility] [address] [address] [address] David Magana Globulin (S) [Mass/Vol] 3.2 g/dL Normal [facility] Comment on above: Performed By: #### A 1C #### [facility] [address] [address] [address] David Magana Glucose [Mass/Vol] 287 mg/dL Critically high 74-106 [facility] Comment on above: Performed By: #### A 1C #### [facility] [address] [address] [address] David Magana Potassium [Moles/Vol] 5.0 mmol/L Normal 3.5-5.1 [facility] Comment on above: Performed By: #### A 1C #### [facility] [address] [place] [address] Dr. David Magana Protein [Mass/Vol] 6.6 g/dL Normal 6.4-8.2 [facility] [place] [facility] Comment on above: Performed By: #### A 1C #### [facility] [address] [place] [address] Dr. David Magana Sodium [Moles/Vol] 134 mmol/L Critically low 136-145 [facility] Comment on above: Performed By: #### A 1C #### [facility] [address] [place] [address] Dr. David Magana Urea nitrogen [Mass/Vol] 51.0 mg/dL Critically high 7.0-18.0 [facility] Comment on above: Performed By: #### A 1C #### [facility] [address] [address] [address] David Magana Urea nitrogen/Creatinine [Mass ratio] 28.3 mg/mg [facility] Comment on above: Performed By: #### A 1C #### [facility] [address] [place] [address] Dr. David Magana BLOOD GASES BTYon 07-18-2022 02 MODE NASAL CANNULA Normal [facility] Comment on above: Performed By: #### A 1C #### [facility] [address] [address] [address] David Magana ALLENS TEST Positive Normal [facility] Comment on above: Performed By: #### A 1C #### [facility] [address] [place] [address] Dr. David Magana Base excess Calc (Bld) [Moles/Vol] -9.0000 mmol/L Critically low -2.0-2.0 [facility] Comment on above: Performed By: #### A 1C #### [facility] [address] [place] [address] Dr. David Magana BIPAP PRESSURE [facility] Comment on above: Performed By: #### A 1C #### [facility] [address] [place] [address] Dr. David Magana CPAP [facility] Comment on above: Performed By: #### A 1C #### [facility] [address] [place] [address] Dr. David Magana FIO2 [facility] Comment on above: Performed By: #### A 1C #### [facility] [address] [place] [address] Dr. David Magana HCO3 (Bld) [Moles/Vol] 18.4 mmol/L Critically low 22.0-26.0 [facility] Comment on above: Performed By: #### A 1C #### [facility] [address] [place] [address] Dr. David Magana LPM 1.5 Normal [facility] Comment on above: Performed By: #### A 1C #### [facility] [address] [address] [address] David Magana MINUTE VOLUME Normal [facility] Comment on above: Performed By: #### A 1C #### [facility] [address] [place] [address] Dr. David Magana Oxygen (Bld) [Partial pressure] 69.5 mm[Hg] Critically low 80.0-100.0 [facility] Comment on above: Performed By: #### A 1C #### [facility] [address] [place] [address] Dr. David Magana Oxygen saturation in Blood 94.2 % Critically low 95.0-100.0 [facility] Comment on above: Performed By: #### A 1C #### [facility] [address] [place] [address] Dr. David Magana PCO2 29.6 mmHg Critically low 35.0-45.0 [facility] Comment on above: Performed By: #### A 1C #### [facility] [address] [place] [address] Dr. David Magana PEEP [facility] Comment on above: Performed By: #### A 1C #### [facility] [address] [place] [address] Dr. David Magana pH (Bld) 7.355 [pH] Normal 7.350-7.450 [facility] Comment on above: Performed By: #### A 1C #### [facility] [address] [place] [address] Dr. David Magana [facility] Comment on above: Performed By: #### A 1C #### [facility] [address] [place] [address] Dr. David Magana [facility] Comment on above: Performed By: #### A 1C #### [facility] [address] [place] [address] Dr. David Magana PUNCTURE SITE LR [facility] Comment on above: Performed By: #### A 1C #### [facility] [address] [place] [address] Dr. David Magana RATE [facility] Comment on above: Performed By: #### A 1C #### [facility] [address] [place] [address] Dr. David Magana VENT MODE [facility] Comment on above: Performed By: #### A 1C #### [facility] [address] [place] [address] Dr. David Magana [facility] Comment on above: Performed By: #### A 1C #### [facility] [address] [place] [address] Dr. David Magana BNPon 07-18-2022 Natriuretic peptide B (Bld) [Mass/Vol] 7047.0 pg/mL Critically high <=1,800.0 [facility] Comment on above: Performed By: #### C VDTBH #### [facility] [address] [place] [address] Dr. David Magana CARDIAC BARRIE 3-6on 2 CK [Catalytic activity/Vol] 396 U/L Critically high 39-308 [facility] Comment on above: Performed By: #### M ERICK Faith, PHOS #### [facility] [address] [place] [address] Dr. David Magana CK.MB [Mass/Vol] 2.94 ng/mL Normal <=3.[address] [facility] Comment on above: Performed By: #### ERICK Jacques, PHOS #### [facility] [address] [place] [address] Dr. David Magana HSTROP 11.1 pg/mL Normal 4.0-76.1 [facility] Comment on above: Result Comment: CUT- OFF POINTS HAVE BEEN ESTABLISHED BASED ON THE FOURTH UNIVERSAL DEFINITIONS OF MYOCARDIAL INFARCTION. THE UPPER REFERENCE LIMIT (URL) OF TROPONIN, DEFINED THE 99TH PERCENTILE OF cTnI DISTRIBUTION IN A REFERENCE POPULATION, HAS BEEN CONFIRMED THE DECISION THRESHOLD FOR [place] DIAGNOSIS. Performed By: #### ERICK Jacques, PHOS #### [facility] [address] [place] [address] Dr. David Magana CK [Catalytic activity/Vol] 58 U/L Normal 39-308 [facility] Comment on above: Performed By: #### ERICK Jacques, PHOS #### [facility] [address] [place] [address] Dr. David Mgaana CK.MB [Mass/Vol] 1.71 ng/mL Normal <=3.[address] [facility] Comment on above: Performed By: #### ERICK Jacques, PHOS #### [facility] [address] [place] [address] Dr. David Magana HSTROP 10.6 pg/mL Normal 4.0-76.1 [facility] Comment on above: Result Comment: CUT- OFF POINTS HAVE BEEN ESTABLISHED BASED ON THE FOURTH UNIVERSAL DEFINITIONS OF MYOCARDIAL INFARCTION. THE UPPER REFERENCE LIMIT (URL) OF TROPONIN, DEFINED THE 99TH PERCENTILE OF cTnI DISTRIBUTION IN A REFERENCE POPULATION, HAS BEEN CONFIRMED THE DECISION THRESHOLD FOR [place] DIAGNOSIS. Performed By: #### M ERICK Faith, PHOS #### [facility] [address] [address] [address] David Magana CBC AUTO DIFFon 07-18-2022 BASO # 0.0 103/ul Normal 0.0-0.1 [facility] Comment on above: Performed By: #### M ERICK Faith, PHOS #### [facility] [address] [place] [address] Dr. David Magana Basophils/100 WBC (Bld) 0.2 % Normal 0.2-2.0 [facility] Comment on above: Performed By: #### ERICK Jacques, PHOS #### [facility] [address] [address] [address] David Magana EO # 0.0 103/ul Normal 0.0-0.7 [facility] Comment on above: Performed By: #### M ERICK Faith, PHOS #### [facility] [address] [place] [address] Dr. David Magana Eosinophils/100 WBC (Bld) 0.2 % Critically low 0.9-7.0 [facility] Comment on above: Performed By: #### ERICK Jacques, PHOS #### [facility] [address] [place] [address] Dr. David Magana Erythrocyte distribution width (RBC) [Ratio] 13.2 % Normal 11.0-15.0 [facility] Comment on above: Performed By: #### ERICK Jacques, PHOS #### [facility] [address] [place] [address] Dr. David Magana Hematocrit (Bld) [Volume fraction] 43.8 % Normal 42.0-54.0 [facility] Comment on above: Performed By: #### M G, BMP, PHOS #### [facility] [address] [place] [address] Dr. David Magana Hemoglobin (Bld) [Mass/Vol] 14.5 g/dL Normal 14.0-18.0 [facility] Comment on above: Performed By: #### M G, BMP, PHOS #### [facility] [address] [place] [address] Dr. David Magana IG # 0.15 10e3/ul Critically high 0.00-0.03 [facility] Comment on above: Performed By: #### M G, BMP, PHOS #### [facility] [address] [place] [address] Dr. David Magana IG % 1.3 % Critically high 0.0-0.5 [facility] Comment on above: Performed By: #### M G, BMP, PHOS #### [facility] [address] [place] [address] Dr. David Magana LYMPH # 0.5 103/ul Critically low 1.2-3.8 [facility] Comment on above: Performed By: #### M G, BMP, PHOS #### [facility] [address] [place] [address] Dr. David Magana Lymphocytes/100 WBC (Bld) 3.8 % Critically low 20.5-60.0 [facility] Comment on above: Performed By: #### M G, BMP, PHOS #### [facility] [address] [place] [address] Dr. David Magana MANUAL DIFF REQ NO Normal [facility] Comment on above: Performed By: #### M G, BMP, PHOS #### [facility] [address] [place] [address] Dr. David Magana MCH (RBC) [Entitic mass] 32.7 pg Normal 25.9-34.0 [facility] Comment on above: Performed By: #### M G, BMP, PHOS #### [facility] [address] [place] [address] Dr. David Magana MCHC (RBC) [Mass/Vol] 33.1 g/dL Normal 29.9-35.2 [facility] Comment on above: Performed By: #### M ERICK Faith, PHOS #### [facility] [address] [place] [address] Dr. David Magana MCV (RBC) [Entitic vol] 98.9 fL Critically high 80.0-94.0 [facility] Comment on above: Performed By: #### M Marcell BMP, PHOS #### [facility] [address] [place] [address] Dr. David Magana MONO # 0.7 103/ul Normal 0.3-0.8 [facility] Comment on above: Performed By: #### M ERICK Faith, PHOS #### [facility] [address] [place] [address] Dr. David Magana Monocytes/100 WBC (Bld) 5.7 % Normal 1.7-12.0 [facility] Comment on above: Performed By: #### M ERICK Faith, PHOS #### [facility] [address] [place] [address] Dr. David Magana NEUT # 10.4 103/ul Critically high 1.4-6.[address] [facility] Comment on above: Performed By: #### M ERICK Faith, PHOS #### [facility] [address] [place] [address] Dr. David Magana Neutrophils/100 WBC (Bld) 88.8 % Critically high 43.0-75.0 [facility] Comment on above: Performed By: #### M ERICK Faith, PHOS #### [facility] [address] [place] [address] Dr. David Magana Platelet mean volume (Bld) [Entitic vol] 11.0 fL Normal 9.5-13.5 [facility] Comment on above: Performed By: #### M Marcell BMP, PHOS #### [facility] [address] [place] [address] Dr. David Magana PLT 198 103/ul Normal 150-450 [facility] Comment on above: Performed By: #### M G, BMP, PHOS #### [facility] [address] [place], [place] [address] Dr. David Magana RBC 4.43 106/ul Critically low 4.70-6.10 [facility] Comment on above: Performed By: #### M G, BMP, PHOS #### [facility] [address] [place], [place] [address] Dr. David Magana WBC 11.8 103/ul Critically high 4.0-11.[address] [facility] Comment on above: Performed By: #### M G, BMP, PHOS #### [facility] [address] [place], [place] [address] HEAD WO CONon [...] FRANCISCO ZELAYA Date: 2022-07-18 05:12 Normal [facility] Covid-19 PCR (CVDTBH)on SARS-CoV-2 (COVID-19) RNA SULTANA+probe Ql (Unsp spec) Detected Critically abnormal NOT DETECTED [facility] Comment on above: Result Comment: This test is not yet approved or cleared by the [place] FDA. When there are no FDA-approved or cleared tests available, and other criteria are met, FDA can make tests available under an emergency access mechanism called an Emergency Use Authorization (EUA). The EUA for this test is supported by the [place] of Health and Human Service's declaration that [...] used). Performed By: #### C VDTBH #### [facility] [address] [place] [address] Dr. David Magana D-DIMERon 07-18-2022 D-DIMER 1.69 mg/L FEU Critically high <=0.59 [facility] [place] [facility] Comment on above: Performed By: #### C BC #### [facility] [address] [place] [address] Dr. aDvid Magana D-DIMER COMMENTS SEE BELOW Normal [facility] Comment on above: Result Comment: Incr [...] hospitalization. Performed By: #### C BC #### [facility] [address] [place] [address] Dr. David Magana POINT OF CARE GLUCOSEon Glucose [Mass/Vol] 329 mg/dL Critically high 74-106 [facility] Comment on above: Performed By: #### P OCGLUC #### [facility] [address] [place] [address] Dr. David Magana Glucose [Mass/Vol] 354 mg/dL Critically high 74-106 [facility] Comment on above: Performed By: #### P OCGLUC #### [facility] [address] [place] [address] Dr. David Magana PROF 14(COMP METB)on 022 Albumin [Mass/Vol] 3.6 g/dL Normal 3.4-5.0 [facility] [place] [facility] Comment on above: Performed By: #### C VDTBH #### [facility] [address] [place] [address] Dr. David Magana Albumin/Globulin [Mass ratio] 1.1 {ratio} Normal [facility] Comment on above: Performed By: #### C VDTBH #### [facility] [address] [address] [address] David Magana ALP [Catalytic activity/Vol] 67 U/L Normal 46-116 [facility] Comment on above: Performed By: #### C VDTBH #### [facility] [address] [address] [address] David Magana ALT [Catalytic activity/Vol] 33 U/L Normal 16-63 [facility] Comment on above: Performed By: #### C VDTBH #### [facility] [address] [place] [address] Dr. David Magana Anion gap [Moles/Vol] 23.5 mmol/L Normal [facility] Comment on above: Performed By: #### C VDTBH #### [facility] [address] [address] [address] David Magana AST [Catalytic activity/Vol] 13 U/L Critically low 15-37 [facility] Comment on above: Performed By: #### C VDTBH #### [facility] [address] [address] [address] David Magana Bilirubin [Mass/Vol] 0.6 mg/dL Normal 0.2-1.0 [facility] Comment on above: Performed By: #### C VDTBH #### [facility] [address] [address] [address] David Magana Calcium [Mass/Vol] 8.4 mg/dL Critically low 8.5-10.1 [facility] Comment on above: Performed By: #### C VDTBH #### [facility] [address] [address] [address] David Magana Chloride [Moles/Vol] 93 mmol/L Critically low 98-107 [facility] Comment on above: Performed By: #### C VDTBH #### [facility] [address] [place] [address] Dr. David Magana CO2 [Moles/Vol] 17.9 mmol/L Critically low 21.0-32.0 [facility] Comment on above: Performed By: #### C VDTBH #### [facility] [address] [place] [address] Dr. David Magana Creatinine [Mass/Vol] 2.15 mg/dL Critically high 0.70-1.30 [facility] Comment on above: Performed By: #### C VDTBH #### [facility] [address] [place] [address] Dr. David Magana EGFR-AF PRYDEINIG 36 mL/min/1.73m2 Critically low >=60 [facility] Comment on above: Performed By: #### C VDTBH #### [facility] [address] [place] [address] Dr. David Magana EGFR-NON AF PRYDEINIG 30 mL/min/1.73m2 Critically low >=60 [facility] Comment on above: Performed By: #### C VDTBH #### [facility] [address] [place] [address] Dr. David Magana Globulin (S) [Mass/Vol] 3.2 g/dL Normal [facility] Comment on above: Performed By: #### C VDTBH #### [facility] [address] [place] [address] Dr. David Magana Glucose [Mass/Vol] 345 mg/dL Critically high 74-106 [facility] Comment on above: Performed By: #### C VDTBH #### [facility] [address] [place] [address] Dr. David Magana Potassium [Moles/Vol] 5.4 mmol/L Critically high 3.5-5.1 [facility] Comment on above: Performed By: #### C VDTBH #### [facility] [address] [place] [address] Dr. David Magana Performed By: #### K #### [facility] [address] [address] [address] David Magana Protein [Mass/Vol] 6.8 g/dL Normal 6.4-8.2 [facility] [place] [facility] Comment on above: Performed By: #### C VDTBH #### [facility] [address] [address] [address] David Magana Sodium [Moles/Vol] 129 mmol/L Critically low 136-145 [facility] Comment on above: Performed By: #### C VDTBH #### [facility] [address] [address] [address] David Magana Urea nitrogen [Mass/Vol] 65.0 mg/dL Critically high 7.0-18.0 [facility] Comment on above: Performed By: #### C VDTBH #### [facility] [address] [place] [address] Dr. David Magana Urea nitrogen/Creatinine [Mass ratio] 30.2 mg/mg Normal [facility] Comment on above: Performed By: #### C VDTBH #### [facility] [address] [address] [address] David Magana UA RANDOM W/MICROSCOPICon BACTERIA NONE SEEN Normal NONE SEEN [facility] Comment on above: Performed By: #### M Marcell BMP, PHOS #### [facility] [address] [address] [address] David Magana Bilirubin Ql (U) Negative Normal NEGATIVE [facility] Comment on above: Performed By: #### M G, BMP, PHOS #### [facility] [address] [place] [address] Dr. David Magana CAST NONE SEEN Normal NONE SEEN [facility] Comment on above: Performed By: #### M G, BMP, PHOS #### [facility] [address] [place] [address] Dr. David Magana Clarity (U) CLEAR Normal CLEAR [facility] Comment on above: Performed By: #### M G, BMP, PHOS #### [facility] [address] [address] [address] David Magana Color (U) LT. YELLOW Normal YELLOW [facility] Comment on above: Performed By: #### M Marcell, BMP, PHOS #### [facility] [address] [address] [address] David Magana Crystals LM Nom (Urine sed) NONE SEEN Normal NONE SEEN [facility] Comment on above: Performed By: #### M Marcell, BMP, PHOS #### [facility] [address] [address] [address] David Magana Epithelial cells LM Ql (Urine sed) RARE Normal NONE SEEN /RARE [facility] Comment on above: Performed By: #### M Marcell BMP, PHOS #### [facility] [address] [place] [address] Dr. David Magana Glucose Ql (U) 1000 mg/dl Abnormal NEGATIVE [facility] Comment on above: Performed By: #### Ethel Faith BMP, PHOS #### [facility] [address] [place] [address] Dr. David Magana Hemoglobin Ql (U) Negative Normal NEGATIVE [facility] Comment on above: Performed By: #### M ERICK Faith, PHOS #### [facility] [address] [place] [address] Dr. David Magana Ketones Ql (U) 15 mg/dl Abnormal NEGATIVE [facility] Comment on above: Performed By: #### M ERICK Faith, PHOS #### [facility] [address] [address] [address] David Magana LEUKOCYTES Negative Normal NEGATIVE [facility] Comment on above: Performed By: #### M G, BMP, PHOS #### [facility] [address] [address] [address] David Magana MUCOUS NONE SEEN Normal NONE SEEN [facility] Comment on above: Performed By: #### M G, BMP, PHOS #### [facility] [address] [place] [address] Dr. David Magana Nitrite Ql (U) Negative Normal NEGATIVE [facility] Comment on above: Performed By: #### M G, BMP, PHOS #### [facility] [address] [place] [address] Dr. David Magana pH (U) 5.5 [pH] Normal 5-9 [facility] Comment on above: Performed By: #### M G, BMP, PHOS #### [facility] [address] [address] [address] David Magana RBC NONE SEEN Abnormal 0-2 [facility] Comment on above: Performed By: #### M G, BMP, PHOS #### [facility] [address] [address] [address] David Magana SPEC GRAVITY <=1.005 Abnormal 1.005-<=1.02 5 [facility] Comment on above: Performed By: #### M Marcell, BMP, PHOS #### [facility] [address] [place] [address] Dr. David Magana UA PROTEIN Negative Normal NEGATIVE/ TRACE [facility] Comment on above: Performed By: #### M ERICK Faith, PHOS #### [facility] [address] [address] [address] David Magana Urobilinogen Qn (U) 0.2 {Dionna'U}/dL Normal 0.2 - 1. 0 [facility] Comment on above: Performed By: #### M Marcell BMP, PHOS #### [facility] [address] [place] [address] Dr. David Magana WBC NONE SEEN Normal NONE SEEN [facility] Comment on above: Performed By: #### M Marcell, BMP, PHOS #### [facility] [address] [place] [address] Dr. David Magana XR CHEST 1 Von [...] Yefri DWYER Date: 2022-07-18 00:09 Normal [facility] CARDIAC BARRIE ADMITon 022 CK [Catalytic activity/Vol] 61 U/L Normal 39-308 [facility] Comment on above: Performed By: #### C BC #### [facility] [address] [address] [address] David Magana CK.MB [Mass/Vol] 1.84 ng/mL Normal <=3.[address] [facility] Comment on above: Performed By: #### C BC #### [facility] [address] [address] [address] David Magana HSTROP 9.4 pg/mL Normal 4.0-76.1 [facility] Comment on above: Result Comment: CUT- OFF POINTS HAVE BEEN ESTABLISHED BASED ON THE FOURTH UNIVERSAL DEFINITIONS OF MYOCARDIAL INFARCTION. THE UPPER REFERENCE LIMIT (URL) OF TROPONIN, DEFINED THE 99TH PERCENTILE OF cTnI DISTRIBUTION IN A REFERENCE POPULATION, HAS BEEN CONFIRMED THE DECISION THRESHOLD FOR [place] DIAGNOSIS. Performed By: #### C BC #### [facility] [address] [address] [address] David Magana DUSTIN 533 ng/mL Critically high 16-96 [facility] Comment on above: Performed By: #### C BC #### [facility] [address] [address] [address] David Magana CBC AUTO DIFFon 07-17-2022 BASO # 0.0 103/ul Normal 0.0-0.1 [facility] Comment on above: Performed By: #### M G, BMP, PHOS #### [facility] [address] [address] [address] David Magana Basophils/100 WBC (Bld) 0.2 % Normal 0.2-2.0 [facility] Comment on above: Performed By: #### M G, BMP, PHOS #### [facility] [address] [address] [address] David Magana EO # 0.0 103/ul Normal 0.0-0.7 [facility] Comment on above: Performed By: #### M ERICK Faith, PHOS #### [facility] [address] [place] [address] Dr. David Magana Eosinophils/100 WBC (Bld) 0.1 % Critically low 0.9-7.0 [facility] Comment on above: Performed By: #### M ERICK Faith, PHOS #### [facility] [address] [place] [address] Dr. David Magana Erythrocyte distribution width (RBC) [Ratio] 13.2 % Normal 11.0-15.0 [facility] Comment on above: Performed By: #### M ERICK Faith, PHOS #### [facility] [address] [place] [address] Dr. David Magana Hematocrit (Bld) [Volume fraction] 43.1 % Normal 42.0-54.0 [facility] Comment on above: Performed By: #### ERICK Jacques, PHOS #### [facility] [address] [place] [address] Dr. David Magana Hemoglobin (Bld) [Mass/Vol] 14.5 g/dL Normal 14.0-18.0 [facility] Comment on above: Performed By: #### ERICK Jacques, PHOS #### [facility] [address] [place] [address] Dr. David Magana IG # 0.14 10e3/ul Critically high 0.00-0.03 [facility] Comment on above: Performed By: #### ERICK Jacques, PHOS #### [facility] [address] [place] [address] Dr. David Magana IG % 1.2 % Critically high 0.0-0.5 [facility] Comment on above: Performed By: #### M ERICK Faith, PHOS #### [facility] [address] [place] [address] Dr. David Magana LYMPH # 0.4 103/ul Critically low 1.2-3.8 [facility] Comment on above: Performed By: #### ERICK Jacques, PHOS #### [facility] [address] [address] [address] David Magana Lymphocytes/100 WBC (Bld) 3.4 % Critically low 20.5-60.0 [facility] Comment on above: Performed By: #### M ERICK Faith, PHOS #### [facility] [address] [address] [address] David Magana MANUAL DIFF REQ NO Normal [facility] Comment on above: Performed By: #### M Marcell, BMP, PHOS #### [facility] [address] [place] [address] Dr. David Magana MCH (RBC) [Entitic mass] 33.3 pg Normal 25.9-34.0 [facility] Comment on above: Performed By: #### M ERICK Faith, PHOS #### [facility] [address] [place] [address] Dr. David Magana MCHC (RBC) [Mass/Vol] 33.6 g/dL Normal 29.9-35.2 [facility] Comment on above: Performed By: #### Ethel Faith BMP, PHOS #### [facility] [address] [place] [address] Dr. David Magana MCV (RBC) [Entitic vol] 98.9 fL Critically high 80.0-94.0 [facility] Comment on above: Performed By: #### M ERICK Faith, PHOS #### [facility] [address] [place] [address] Dr. David Magana MONO # 1.1 103/ul Critically high 0.3-0.8 [facility] Comment on above: Performed By: #### M Marcell, BMP, PHOS #### [facility] [address] [place] [address] Dr. David Magana Monocytes/100 WBC (Bld) 8.9 % Normal 1.7-12.0 [facility] Comment on above: Performed By: #### M Marcell, BMP, PHOS #### [facility] [address] [place] [address] Dr. David Magana NEUT # 10.3 103/ul Critically high 1.4-6.5 [facility] Comment on above: Performed By: #### ERICK Jacques, PHOS #### [facility] [address] [place] [address] Dr. David Magana Neutrophils/100 WBC (Bld) 86.2 % Critically high 43.0-75.0 [facility] Comment on above: Performed By: #### ERICK Jacques, PHOS #### [facility] [address] [place] [address] Dr. David Magana Platelet mean volume (Bld) [Entitic vol] 11.1 fL Normal 9.5-13.5 [facility] Comment on above: Performed By: #### ERICK Jacques, PHOS #### [facility] [address] [place] [address] Dr. David Magana PLT 229 103/ul Normal 150-450 [facility] Comment on above: Performed By: #### ERICK Jacques, PHOS #### [facility] [address] [place] [address] Dr. David Magana RBC 4.36 106/ul Critically low 4.70-6.10 [facility] Comment on above: Performed By: #### ERICK Jacques, PHOS #### [facility] [address] [place] [address] Dr. David Magana WBC 11.9 103/ul Critically high 4.0-11.0 [facility] Comment on above: Performed By: #### ERICK Jacques, PHOS #### [facility] [address] [place] [address] Dr. David Magana PROF CHEM 8 (BAS METB)on Anion gap [Moles/Vol] 26.5 mmol/L Normal [facility] Comment on above: Performed By: #### C BC #### [facility] [address] [place] [address] Dr. David Magana Calcium [Mass/Vol] 8.2 mg/dL Critically low 8.5-10.1 [facility] Comment on above: Performed By: #### C BC #### [facility] [address] [address] [address] David Magana Chloride [Moles/Vol] 89 mmol/L Critically low 98-107 [facility] Comment on above: Performed By: #### C BC #### [facility] [address] [address] [address] David Magana CO2 [Moles/Vol] 14.5 mmol/L Critically low 21.0-32.0 [facility] Comment on above: Performed By: #### C BC #### [facility] [address] [address] [address] David Magana Creatinine [Mass/Vol] 2.78 mg/dL Critically high 0.70-1.30 [facility] Comment on above: Performed By: #### C BC #### [facility] [address] [address] [address] David Magnaa EGFR-AF PRYDEINIG 27 mL/min/1.73m2 Critically low >=60 [facility] Comment on above: Performed By: #### C BC #### [facility] [address] [place] [address] Dr. David Magana EGFR-NON AF PRYDEINIG 22 mL/min/1.73m2 Critically low >=60 [facility] Comment on above: Performed By: #### C BC #### [facility] [address] [address] [address] David Magana Glucose [Mass/Vol] 442 mg/dL Critically high 74-106 [facility] Comment on above: Performed By: #### C BC #### [facility] [address] [address] [address] David Magana Potassium [Moles/Vol] 6.0 mmol/L Critically high 3.5-5.1 [facility] Comment on above: Performed By: #### C BC #### [facility] [address] [address] [address] David Magana Sodium [Moles/Vol] 124 mmol/L Critically low 136-145 [facility] Comment on above: Performed By: #### C BC #### [facility] [address] [address] [address] David Magana Urea nitrogen [Mass/Vol] 73.0 mg/dL Critically high 7.0-18.0 [facility] Comment on above: Performed By: #### C BC #### [facility] [address] [address] [address] David Magana Urea nitrogen/Creatinine [Mass ratio] 26.3 mg/mg Normal [facility] Comment on above: Performed By: #### C BC #### [facility] [address] [address] [address] David Magana [facility]16 SARS-CoV-2 (COVID-19) RNA SULTANA+probe Ql (Unsp spec) Detected Critically abnormal NOT DETECTED [facility] Comment on above: Result Comment: This test is not yet approved or cleared by the [place] FDA. When there are no FDA-approved or cleared tests available, and other criteria are met, FDA can make tests available under an emergency access mechanism called an Emergency Use Authorization (EUA). The EUA for this test is supported by the Retail Department Supervisor of Health and Human Service's (HHS's) declaration [...] By: #### M ERICK Faith PHOS #### [facility] [address] [place] [address] Dr. David Magana ECHOCARDIO M/2D COMPLETEon 0 07-01-2022 ECHOCARDIO M/2D COMPLETE Patient: NADIR BETH Exam Date: 07/01/2022 : 1940 Gender:M Ordering : DR CLARIBEL CISNEROS M.D. Admission #: [id number] Family : DR VAN YOUSSEF . Order #: [id number] CLICK HERE TO VIEW EXAM ECHOCARDIOGRAM REPORT [...] M.D. on 07/01/2022 at 16:27 Normal [facility] Covid-19 PCR ([facility])on SARS-CoV-2 (COVID-19) RNA SULTANA+probe Ql (Unsp spec) Not detected Normal NOT DETECTED [facility] Comment on above: Result Comment: When diagnostic [...] for this test is supported by the Retail Department Supervisor of Health and Human Service's declaration that [...] used). Performed By: #### C VDTBH #### [facility] [address] [place] [address] Dr. David Magana CREATININE URINEon 2 URINE CREAT 14.70 mg/dL Critically low 20.00-300.00 [facility] Comment on above: Performed By: #### M ERICK Faith, PHOS #### [facility] [address] [place] [address] Dr. David Magana GLYCOHEMOGLOBIN A1Con 2021 ADA RECOMMENDATION SEE BELOW Normal [facility] Comment on above: Result Comment: ADA RECOMMENDED LIMIT 4.0 - 6.0 ADA THERAPEUTIC TARGET < 7.0 ACTION SUGGESTED > 7.0 Performed By: #### A 1C #### [facility] [address] [place] [address] Dr. David Magana Glucose [Mass/Vol] 209 mg/dL Normal [facility] Comment on above: Performed By: #### A 1C #### [facility] [address] [place] [address] Dr. David Magana HbA1c (Bld) [Mass fraction] 8.9 % Critically high 4.5-6.2 [facility] Comment on above: Performed By: #### A 1C #### [facility] [address] [place] [address] Dr. David Magana MAGNESIUMon 06-08-2022 Magnesium [Mass/Vol] 2.3 mg/dL Normal 1.8-2.4 [facility] Comment on above: Performed By: #### M ERICK Faith, PHOS #### [facility] [address] [place] [address] Dr. David Magana PHOSPHORUSon 06-08-2022 Phosphate [Mass/Vol] 3.5 mg/dL Normal 2.6-4.7 [facility] Comment on above: Performed By: #### M ERICK Faith, PHOS #### [facility] [address] [place] [address] Dr. David Magana PROF CHEM 8 (BAS METB)on Anion gap [Moles/Vol] 10.6 mmol/L Normal [facility] Comment on above: Performed By: #### ERICK Jacques, PHOS #### [facility] [address] [address] [address] David Magana Calcium [Mass/Vol] 9.2 mg/dL Normal 8.5-10.1 [facility] Comment on above: Performed By: #### ERICK Jacques, PHOS #### [facility] [address] [address] [address] David Magana Chloride [Moles/Vol] 102 mmol/L Normal 98-107 [facility] Comment on above: Performed By: #### ERICK Jacques, PHOS #### [facility] [address] [place] [address] Dr. David Magana CO2 [Moles/Vol] 30.1 mmol/L Normal 21.0-32.0 [facility] Comment on above: Performed By: #### ERICK Jacques, PHOS #### [facility] [address] [place] [address] Dr. David Magana Creatinine [Mass/Vol] 1.70 mg/dL Critically high 0.70-1.30 [facility] Comment on above: Performed By: #### ERICK Jacques, PHOS #### [facility] [address] [place] [address] Dr. David Magana EGFR-AF PRYDEINIG 47 mL/min/1.73m2 Critically low >=60 [facility] Comment on above: Performed By: #### ERICK Jacques, PHOS #### [facility] [address] [place] [address] Dr. David Magana EGFR-NON AF PRYDEINIG 39 mL/min/1.73m2 Critically low >=60 [facility] Comment on above: Performed By: #### ERICK Jacques, PHOS #### [facility] [address] [place] [address] Dr. David Magana Glucose [Mass/Vol] 197 mg/dL Critically high 74-106 [facility] Comment on above: Performed By: #### ERICK Jacques, PHOS #### [facility] [address] [place] [address] Dr. David Magana Potassium [Moles/Vol] 4.7 mmol/L Normal 3.5-5.1 [facility] Comment on above: Performed By: #### M G, BMP, PHOS #### [facility] [address] [place] [address] Dr. David Magana Sodium [Moles/Vol] 138 mmol/L Normal 136-145 [facility] Comment on above: Performed By: #### M G, BMP, PHOS #### [facility] [address] [place] [address] Dr. David Magana Urea nitrogen [Mass/Vol] 25.0 mg/dL Critically high 7.0-18.0 [facility] Comment on above: Performed By: #### M G, BMP, PHOS #### [facility] [address] [place] [address] Dr. David Magana Urea nitrogen/Creatinine [Mass ratio] 14.7 mg/mg Normal [facility] Comment on above: Performed By: #### M G, BMP, PHOS #### [facility] [address] [place] [address] Dr. David Magana PROTEIN RAND URINEon 022 UR PROT <5.0 Normal <=11.9 [facility] Comment on above: Performed By: #### C REAU, PROTU #### [facility] [address] [place] [address] Dr. David Magana BILIRUBIN CONJUGATED (DIRECT )on 04-28-2022 BILI, CONJUGATED 0.1 mg/dL Normal 0.0-0.2 [facility] Comment on above: Performed By: #### P OCGLUC #### [facility] [address] [place] [address] Dr. David Magana CBC AUTO DIFFon 04-28-2022 BASO # 0.1 103/ul Normal 0.0-0.1 [facility] Comment on above: Performed By: #### C VDTBH #### [facility] [address] [place] [address] Dr. David Magana Basophils/100 WBC (Bld) 0.7 % Normal 0.2-2.0 [facility] Comment on above: Performed By: #### C VDTBH #### [facility] [address] [place] [address] Dr. David Magana EO # 0.5 103/ul Normal 0.0-0.7 [facility] Comment on above: Performed By: #### C VDTBH #### [facility] [address] [place] [address] Dr. David Magana Eosinophils/100 WBC (Bld) 6.7 % Normal 0.9-7.0 [facility] Comment on above: Performed By: #### C VDTBH #### [facility] [address] [place] [address] Dr. David Magana Erythrocyte distribution width (RBC) [Ratio] 13.6 % Normal 11.0-15.0 [facility] Comment on above: Performed By: #### C VDTBH #### [facility] [address] [place] [address] Dr. David Magana Hematocrit (Bld) [Volume fraction] 45.9 % Normal 42.0-54.0 [facility] Comment on above: Performed By: #### C VDTBH #### [facility] [address] [place] [address] Dr. David Magana Hemoglobin (Bld) [Mass/Vol] 14.9 g/dL Normal 14.0-18.0 [facility] Comment on above: Performed By: #### C VDTBH #### [facility] [address] [place] [address] Dr. David Magana IG # 0.03 10e3/ul Normal 0.00-0.03 [facility] Comment on above: Performed By: #### C VDTBH #### [facility] [address] [place] [address] Dr. David Magana IG % 0.4 % Normal 0.0-0.5 [facility] Comment on above: Performed By: #### C VDTBH #### [facility] [address] [address] [address] David Magana LYMPH # 1.0 103/ul Critically low 1.2-3.8 [facility] Comment on above: Performed By: #### C VDTBH #### [facility] [address] [address] [address] David Magana Lymphocytes/100 WBC (Bld) 13.4 % Critically low 20.5-60.0 [facility] Comment on above: Performed By: #### C VDTBH #### [facility] [address] [address] [address] David Magana MANUAL DIFF REQ NO Normal [facility] Comment on above: Performed By: #### C VDTBH #### [facility] [address] [place] [address] Dr. David Magana MCH (RBC) [Entitic mass] 33.8 pg Normal 25.9-34.0 [facility] Comment on above: Performed By: #### C VDTBH #### [facility] [address] [place] [address] Dr. David Magana MCHC (RBC) [Mass/Vol] 32.5 g/dL Normal 29.9-35.2 [facility] Comment on above: Performed By: #### C VDTBH #### [facility] [address] [place] [address] Dr. David Magana MCV (RBC) [Entitic vol] 104.1 fL Critically high 80.0-94.0 [facility] Comment on above: Performed By: #### C VDTBH #### [facility] [address] [place] [address] Dr. David Magana MONO # 0.8 103/ul Normal 0.3-0.8 [facility] Comment on above: Performed By: #### C VDTBH #### [facility] [address] [place] [address] Dr. David Magana Monocytes/100 WBC (Bld) 10.2 % Normal 1.7-12.0 [facility] Comment on above: Performed By: #### C VDTBH #### [facility] [address] [address] [address] David Magana NEUT # 5.1 103/ul Normal 1.4-6.5 [facility] Comment on above: Performed By: #### C VDTBH #### [facility] [address] [address] [address] David Magana Neutrophils/100 WBC (Bld) 68.6 % Normal 43.0-75.0 [facility] Comment on above: Performed By: #### C VDTBH #### [facility] [address] [address] [address] David Magana Platelet mean volume (Bld) [Entitic vol] 11.3 fL Normal 9.5-13.5 [facility] Comment on above: Performed By: #### C VDTBH #### [facility] [address] [place] [address] Dr. David Magana PLT 185 103/ul Normal 150-450 [facility] Comment on above: Performed By: #### C VDTBH #### [facility] [address] [place] [address] Dr. David Magana RBC 4.41 106/ul Critically low 4.70-6.10 [facility] Comment on above: Performed By: #### C VDTBH #### [facility] [address] [place] [address] Dr. David Magana WBC 7.5 103/ul Normal 4.0-11.0 [facility] Comment on above: Performed By: #### C VDTBH #### [facility] [address] [address] [address] David Magana FREE T3on 04-28-2022 FREE T3 2.17 pg/mlL Critically low 2.18-3.98 [facility] Comment on above: Performed By: #### P OCGLUC #### [facility] [address] [place] [address] Dr. David Magana LIPID PROFILEon 04-28-2022 CHOL-HDL RATIO NORM SEE BELOW Normal [facility] Comment on above: Result Comment: 3.3 - 4.4 LOW RISK 4.4 - 7.1 AVERAGE RISK 7.1 - 11.0 MODERATE RISK >11.0 HIGH RISK Performed By: #### P OCGLUC #### [facility] [address] [address] [address] David Magana Cholesterol [Mass/Vol] 234 mg/dL Critically high <=200 [facility] Comment on above: Performed By: #### P OCGLUC #### [facility] [address] [address] [address] David Magana Cholesterol in HDL [Mass/Vol] 58 mg/dL Normal 40-60 [facility] Comment on above: Performed By: #### P OCGLUC #### [facility] [address] [address] [address] David Magana Cholesterol in LDL [Mass/Vol] 129.0 mg/dL Normal [facility] Comment on above: Performed By: #### P OCGLUC #### [facility] [address] [address] [address] David Magana Cholesterol.total/Cho lesterol in HDL [Mass ratio] 4.0 {ratio} Normal [facility] Comment on above: Performed By: #### P OCGLUC #### [facility] [address] [address] [address] David Magana HDL NORMAL > or = 60 mg/dl - LO W CARDIOVASCULAR RISK <40 mg/dl - HIGH CARDIOVASCULAR RISK Normal [facility] Comment on above: Performed By: #### P OCGLUC #### [facility] [address] [address] [address] David Magana LDL CALC NORMAL SEE BELOW Normal [facility] Comment on above: Result Comment: <100 mg/dl OPTIMAL 100 - 129 mg/dl NEAR OR ABOVE OPTIMAL 130 - 159 mg/dl BORDERLINE HIGH 160 - 189 mg/dl HIGH >190 mg/dl VERY HIGH Performed By: #### P OCGLUC #### [facility] [address] [address] [address] David Magana Triglyceride [Mass/Vol] 235 mg/dL Critically high <=150 [facility] Comment on above: Performed By: #### P OCGLUC #### [facility] [address] [address] [address] David Magana VLDL CALC 47.0 mg/dL Normal [facility] Comment on above: Performed By: #### P OCGLUC #### [facility] [address] [address] [address] David Magana PROF 14(COMP METB)on 022 Albumin [Mass/Vol] 3.2 g/dL Critically low 3.4-5.0 [facility] Comment on above: Performed By: #### P OCGLUC #### [facility] [address] [address] [address] David Magana Albumin/Globulin [Mass ratio] 0.9 {ratio} Normal [facility] Comment on above: Performed By: #### P OCGLUC #### [facility] [address] [address] [address] David Magana ALP [Catalytic activity/Vol] 77 U/L Normal 46-116 [facility] Comment on above: Performed By: #### P OCGLUC #### [facility] [address] [address] [address] David Magaan ALT [Catalytic activity/Vol] 24 U/L Normal 16-63 [facility] Comment on above: Performed By: #### P OCGLUC #### [facility] [address] [address] [address] David Magana Anion gap [Moles/Vol] 13.1 mmol/L Normal [facility] Comment on above: Performed By: #### P OCGLUC #### [facility] [address] [address] [address] David Magana AST [Catalytic activity/Vol] 13 U/L Critically low 15-37 [facility] Comment on above: Performed By: #### P OCGLUC #### [facility] [address] [address] [address] David Magana Bilirubin [Mass/Vol] 0.3 mg/dL Normal 0.2-1.0 [facility] Comment on above: Performed By: #### P OCGLUC #### [facility] [address] [address] [address] David Magana Calcium [Mass/Vol] 8.8 mg/dL Normal 8.5-10.1 [facility] Comment on above: Performed By: #### P OCGLUC #### [facility] [address] [address] [address] David Magana Chloride [Moles/Vol] 106 mmol/L Normal 98-107 [facility] Comment on above: Performed By: #### P OCGLUC #### [facility] [address] [address] [address] David Magana CO2 [Moles/Vol] 27.5 mmol/L Normal 21.0-32.0 [facility] Comment on above: Performed By: #### P OCGLUC #### [facility] [address] [address] [address] David Magana Creatinine [Mass/Vol] 1.62 mg/dL Critically high 0.70-1.30 [facility] Comment on above: Performed By: #### P OCGLUC #### [facility] [address] [address] [address] David Magana EGFR-AF PRYDEINIG 50 mL/min/1.73m2 Critically low >=60 [facility] Comment on above: Performed By: #### P OCGLUC #### [facility] [address] [address] [address] David Magana EGFR-NON AF PRYDEINIG 41 mL/min/1.73m2 Critically low >=60 [facility] Comment on above: Performed By: #### P OCGLUC #### [facility] [address] [address] [address] David Magana Globulin (S) [Mass/Vol] 3.4 g/dL Normal [facility] Comment on above: Performed By: #### P OCGLUC #### [facility] [address] [address] [address] David Magana Glucose [Mass/Vol] 206 mg/dL Critically high 74-106 [facility] Comment on above: Performed By: #### P OCGLUC #### [facility] [address] [address] [address] David Magana Potassium [Moles/Vol] 4.6 mmol/L Normal 3.5-5.1 [facility] Comment on above: Performed By: #### P OCGLUC #### [facility] [address] [address] [address] David Magana Protein [Mass/Vol] 6.6 g/dL Normal 6.4-8.2 [facility] Comment on above: Performed By: #### P OCGLUC #### [facility] [address] [address] [address] David Magana Sodium [Moles/Vol] 142 mmol/L Normal 136-145 [facility] Comment on above: Performed By: #### P OCGLUC #### [facility] [address] [place] [address] Dr. David Magana Urea nitrogen [Mass/Vol] 26.0 mg/dL Critically high 7.0-18.0 [facility] Comment on above: Performed By: #### P OCGLUC #### [facility] [address] [address] [address] David Magana Urea nitrogen/Creatinine [Mass ratio] 16.0 mg/mg Normal [facility] Comment on above: Performed By: #### P OCGLUC #### [facility] [address] [place] [address] Dr. David Magana T4on 04-28-2022 T4 [Mass/Vol] 7.70 ug/dL Normal 4.50-12.10 [facility] Comment on above: Performed By: #### P OCGLUC #### [facility] [address] [address] [address] David Magana TSHon 04-28-2022 TSH 2.187 uIU/mL Normal 0.358-3.740 [facility] Comment on above: Performed By: #### P OCGLUC #### [facility] [address] [place] [address] Dr. David Magana TSH RANGE SEE BELOW Normal [facility] Comment on above: Result Comment: <0.3 4 UIU/ml HYPERTHYROID 0.34-5.60 UIU/ml EUTHYROID >5.60 UIU/ml HYPOTHYROID Performed By: #### P OCGLUC #### [facility] [address] [place] [address] Dr. 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 SURGEON Work Phone: [facility] 05-08-2025 16:32-0400 Body mass index (BMI) [Ratio] 25.09 kg/m2 Mony Herron ORTHOPAEDIC SURGEON Work Phone: [facility] 05-08-2025 16:32-0400 Body weight 83.92 kg Mony Herron ORTHOPAEDIC SURGEON Work Phone: [facility] 04-12-2025 11:05-0400 Body height 182.9 cm Blaise Chicas DPM Work Phone: [facility] 04-12-2025 11:05-0400 Body mass index (BMI) [Ratio] 24.95 kg/m2 Blaise Chicas DPM Work Phone: [facility] 04-12-2025 11:05-0400 Body weight 83.46 kg Blaise Chicas DPM Work Phone: [facility] 04-12-2025 11:05-0400 Respiratory rate 16 /min Blaise Chicas DPM Work Phone: [facility] 04-10-2025 12:58-0400 Body height 182.9 cm Barrie Montoya MD Work Phone: [facility] 04-10-2025 12:58-0400 Body mass index (BMI) [Ratio] 24.95 kg/m2 Barrie Montoya MD Work Phone: [facility] 04-10-2025 12:58-0400 Body weight 83.46 kg Barrie Montoya MD Work Phone: [facility] 03-08-2025 08:56-0400 Body height 182.9 cm Blaise Dao DPM Work Phone: [facility] 03-08-2025 08:56-0400 Body mass index (BMI) [Ratio] 39.2 kg/m2 Blaise Brown DPM Work Phone: [facility] 03-08-2025 08:56-0400 Body weight 131.09 kg Blaise Brown DPM Work Phone: [facility] 03-08-2025 08:56-0400 Respiratory rate 18 /min Blaise Brown DPM Work Phone: [facility] 12-04-2024 08:44-0500 Diastolic blood pressure 90 mm[Hg] MARQUIS NKANSAH-AMANKRA [facility] 12-04-2024 08:44-0500 Heart rate 78 /min MARQUIS NKANSAH-AMANKRA [facility] 12-04-2024 08:44-0500 Systolic blood pressure 160 mm[Hg] MARQUIS NKANSAH-AMANKRA [facility] 11-30-2024 08:28-0500 Body height 182.9 cm Blaise Chicas DPM Work Phone: [facility] 11-30-2024 08:28-0500 Body mass index (BMI) [Ratio] 39.2 kg/m2 Blaise Brown DPM Work Phone: [facility] 11-30-2024 08:28-0500 Body weight 131.09 kg Blaise Brown DPM Work Phone: [facility] 11-30-2024 08:28-0500 Respiratory rate 16 /min Blaise Brown DPM Work Phone: [facility] 11-02-2024 08:09-0500 Blood Pressure Location MARQUIS NKANSAH-AMANKRA [facility] 11-02-2024 08:09-0500 Diastolic blood pressure 67 mm[Hg] MARQUIS NKANSAH-AMANKRA [facility] 11-02-2024 08:09-0500 Heart rate 65 /min MARQUIS NKANSAH-AMANKRA [facility] 11-02-2024 08:09-0500 Systolic blood pressure 102 mm[Hg] MARQUIS NKANSAH-AMANKRA [facility] 09-14-2024 08:19-0400 Body height 182.9 cm Blaise Chicas DPM Work Phone: [facility] 09-14-2024 08:19-0400 Body mass index (BMI) [Ratio] 39.2 kg/m2 Blaise Chicas DPM Work Phone: [facility] 09-14-2024 08:19-0400 Body weight 131.09 kg Blaise Chicas DPM Work Phone: [facility] 09-14-2024 08:19-0400 Diastolic blood pressure 79 mm[Hg] Blaise Chicas DPM Work Phone: [facility] 09-14-2024 08:19-0400 Heart rate 81 /min Blaise Chicas DPM Work Phone: [facility] 09-14-2024 08:19-0400 Systolic blood pressure 128 mm[Hg] Blaise Chicas DPM Work Phone: [facility] 08-08-2024 10:25-0400 Blood Pressure Location MARQUIS NKANSAH-AMANKRA [facility] 08-08-2024 10:25-0400 Diastolic blood pressure 82 mm[Hg] MARQUIS NKANSAH-AMANKRA [facility] 08-08-2024 10:25-0400 Systolic blood pressure 140 mm[Hg] MARQUIS NEELY-AMANKRA [facility] 08-03-2024 08:45-0400 Body height 182.9 cm Blaise Chicas DPM Work Phone: [facility] 08-03-2024 08:45-0400 Body mass index (BMI) [Ratio] 39.2 kg/m2 Blaise Chicas DPM Work Phone: [facility] 08-03-2024 08:45-0400 Body weight 131.09 kg Blaise Chicas DPM Work Phone: [facility] 08-03-2024 08:45-0400 Diastolic blood pressure 82 mm[Hg] Blaise Chicas DPM Work Phone: [facility] 08-03-2024 08:45-0400 Heart rate 75 /min Blaise Chicas DPM Work Phone: [facility] 08-03-2024 08:45-0400 Respiratory rate 18 /min Blaise Chicas DPM Work Phone: [facility] 08-03-2024 08:45-0400 Systolic blood pressure 130 mm[Hg] Blaise Chicas DPM Work Phone: [facility] 08-01-2024 11:24-0400 Body height 182.9 cm Barrie Montoya MD Work Phone: [facility] 08-01-2024 11:24-0400 Body mass index (BMI) [Ratio] 39.2 kg/m2 Barrie Montoya MD Work Phone: [facility] 08-01-2024 11:24-0400 Body weight 131.09 kg Barrie Montoya MD Work Phone: [facility] 08-01-2024 11:24-0400 Diastolic blood pressure 93 mm[Hg] Barrie Montoya MD Work Phone: [facility] 08-01-2024 11:24-0400 Heart rate 73 /min Barrie Montoya MD Work Phone: [facility] 08-01-2024 11:24-0400 Systolic blood pressure 182 mm[Hg] Barrie Montoya MD Work Phone: [facility] 07-20-2024 08:27-0400 Body height 182.9 cm Blaise Brown DPM Work Phone: [facility] 07-20-2024 08:27-0400 Body mass index (BMI) [Ratio] 26.04 kg/m2 Blaise Brown DPM Work Phone: [facility] 07-20-2024 08:27-0400 Body weight 87.09 kg Blaise Brown DPM Work Phone: [facility] 07-20-2024 08:27-0400 Diastolic blood pressure 81 mm[Hg] Blaise Brown DPM Work Phone: [facility] 07-20-2024 08:27-0400 Heart rate 75 /min Blaise Brown DPM Work Phone: [facility] 07-20-2024 08:27-0400 Respiratory rate 18 /min Blaise Brown DPM Work Phone: [facility] 07-20-2024 08:27-0400 Systolic blood pressure 130 mm[Hg] Blaise Brown DPM Work Phone: [facility] 07-06-2024 08:27-0400 Body height 182.9 cm Blaise Brown DPM Work Phone: [facility] 07-06-2024 08:27-0400 Body mass index (BMI) [Ratio] 26.04 kg/m2 Blaise Brown DPM Work Phone: [facility] 07-06-2024 08:27-0400 Body weight 87.09 kg Blaise Brown DPM Work Phone: [facility] 07-06-2024 08:27-0400 Diastolic blood pressure 81 mm[Hg] Blaise Chicas DPM Work Phone: [facility] 07-06-2024 08:27-0400 Heart rate 77 /min Blaise Chicas DPM Work Phone: [facility] 07-06-2024 08:27-0400 Systolic blood pressure 128 mm[Hg] Blaise Chicas DPM Work Phone: [facility] 10-14-2023 14:33-0500 Diastolic blood pressure 70 mm[Hg] Nereyda Patricia [facility] 10-14-2023 14:33-0500 Mean blood pressure 93 mm[Hg] Nereyda Patricia [facility] 10-14-2023 14:33-0500 Systolic blood pressure 138 mm[Hg] Nereyda Patricia [facility] 10-14-2023 14:18-0500 Blood Pressure Location Nereyda Patricia [facility] 10-14-2023 14:18-0500 Body temperature 97.88 [degF] Nereyda [facility] 10-14-2023 14:18-0500 Diastolic blood pressure 73 mm[Hg] Nereyda Patricia [facility] 10-14-2023 14:18-0500 Heart rate 91 /min Nereyda [facility] 10-14-2023 14:18-0500 Systolic blood pressure 143 mm[Hg] Nereyda Patricia [facility] 10-01-2023 12:13-0500 Diastolic blood pressure 66 mm[Hg] Nereyda Patricia [facility] 10-01-2023 12:13-0500 Mean blood pressure 104 mm[Hg] Nereyda Patricia [facility] 10-01-2023 12:13-0500 Systolic blood pressure 179 mm[Hg] Nereyda Patricia [facility] 10-01-2023 12:10-0500 Blood Pressure Location Nereyda Patricia [facility] 10-01-2023 12:10-0500 Body temperature 98.42 [degF] Nereyda Patricia [facility] 10-01-2023 12:10-0500 Diastolic blood pressure 77 mm[Hg] Nereyda Patricia [facility] 10-01-2023 12:10-0500 Heart rate 81 /min Nereyda Patricia [facility] 10-01-2023 12:10-0500 Respiratory rate 14 /min Nereyda Patricia [facility] 10-01-2023 12:10-0500 Systolic blood pressure 168 mm[Hg] Nereyda Patricia [facility] 06-10-2023 10:43-0400 Diastolic blood pressure 64 mm[Hg] Nereyda Patricia [facility] 06-10-2023 10:43-0400 Heart rate 76 /min Nereyda Patricia [facility] 06-10-2023 10:43-0400 Respiratory rate 16 /min Nereyda Patricia [facility] 06-10-2023 10:43-0400 SaO2% (BldA) [Mass fraction] 95 % Nereydasergio JoyaPatricia [facility] 06-10-2023 10:43-0400 Systolic blood pressure 121 mm[Hg] Nereyda Patricia [facility] 04-13-2023 14:19-0400 Diastolic blood pressure 70 mm[Hg] Nereyda Patricia [facility] 04-13-2023 14:19-0400 Mean blood pressure 95 mm[Hg] Nereyda Patricia [facility] 04-13-2023 14:19-0400 Systolic blood pressure 146 mm[Hg] Nereyda Patricia [facility] 04-13-2023 14:15-0400 Blood Pressure Location Nereyda Patricia [facility] 04-13-2023 14:15-0400 Body temperature 97.7 [degF] Nereyda Patricia [facility] 04-13-2023 14:15-0400 Diastolic blood pressure 87 mm[Hg] Nereyda Patricia [facility] 04-13-2023 14:15-0400 Heart rate 70 /min Nereyda Patricia [facility] 04-13-2023 14:15-0400 Systolic blood pressure 150 mm[Hg] Nereyda Patricia [facility] 06-09-2022 10:02-0400 Body temperature 96.98 [degF] Nereyda Patricia [facility] 06-09-2022 10:02-0400 Diastolic blood pressure 75 mm[Hg] Nereydasergio JoyaPatricia [facility] 06-09-2022 10:02-0400 Heart rate 72 /min Nereydasergio JoyaPatricia [facility] 06-09-2022 10:02-0400 SaO2% (BldA) [Mass fraction] 97 % Nereydasergio JoyaPatricia [facility] 06-09-2022 10:02-0400 Systolic blood pressure 139 mm[Hg] Nereydasergio JoyaPatricia [facility] 05-11-2022 11:30-0400 Diastolic blood pressure 102 mm[Hg] Bender SALAM [facility] 05-11-2022 11:30-0400 Heart rate 86 /min Bender SALAM [facility] 05-11-2022 11:30-0400 Respiratory rate 15 /min Bender SALAM [facility] 05-11-2022 11:30-0400 SaO2% (BldA) [Mass fraction] 95 % Bender SALAM [facility] 05-11-2022 11:30-0400 Systolic blood pressure 172 mm[Hg] Bender SALAM [facility] 05-11-2022 11:15-0400 Diastolic blood pressure 88 mm[Hg] Bender SALAM [facility] 05-11-2022 11:15-0400 Heart rate 86 /min Bender SALAM [facility] 05-11-2022 11:15-0400 Respiratory rate 18 /min Bender SALAM [facility] 05-11-2022 11:15-0400 SaO2% (BldA) [Mass fraction] 97 % Bender SALAM [facility] 05-11-2022 11:15-0400 Systolic blood pressure 170 mm[Hg] Bender SALAM [facility] 05-11-2022 11:10-0400 Diastolic blood pressure 108 mm[Hg] Bender SALAM [facility] 05-11-2022 11:10-0400 Heart rate 85 /min Bender SALAM [facility] 05-11-2022 11:10-0400 Respiratory rate 14 /min Bender SALAM [facility] 05-11-2022 11:10-0400 SaO2% (BldA) [Mass fraction] 97 % Bender SALAM [facility] 05-11-2022 11:10-0400 Systolic blood pressure 157 mm[Hg] Bender SALAM [facility] 05-11-2022 11:02-0400 Body temperature 97.34 [degF] Bender SALAM [facility] 05-11-2022 10:27-0400 Blood Pressure Location Bender SALAM [facility] 05-11-2022 10:23-0400 Blood Pressure Location Bender SALAM [facility] 05-11-2022 10:23-0400 Body temperature 98.24 [degF] Bender SALAM [facility] 03-31-2022 09:53-0400 Blood Pressure Location Nereyda Gomez [facility] 03-31-2022 09:53-0400 Body temperature 97.7 [degF] Nereyda Gomez [facility] 03-31-2022 09:53-0400 Diastolic blood pressure 72 mm[Hg] Nereyda Gomez [facility] 03-31-2022 09:53-0400 Heart rate 73 /min Nereyda Gomez [facility] 03-31-2022 09:53-0400 SaO2% (BldA) [Mass fraction] 96 % Nereyda Gomez [facility] 03-31-2022 09:53-0400 Systolic blood pressure 129 mm[Hg] Nereyda Gomez [facility] Encounters Encounter Date Encounter Type Care Provider Facility Start: 03-04-2026 ambulatory MARQUIS LOUISE Facility: [facility] Start: 06-11-2025 End: 06-11-2025 ambulatory LU OLMEDO Facility: [facility] Start: 06-11-2025 End: 06-11-2025 Patient encounter procedure LU OLMEDO [facility] Start: 05-28-2025 End: 05-28-2025 ambulatory [facility] Start: 05-17-2025 Evaluation and manag ement of inpatient [facility] Start: 05-17-2025 Evaluation and manag ement of inpatient NICOLE ERIC [facility] Start: 05-16-2025 Evaluation and manag ement of inpatient [facility] Start: 05-16-2025 Evaluation and manag ement of inpatient GARCÍA MUIR [facility] Start: 05-15-2025 Evaluation and manag ement of inpatient SAM MORA [facility] Start: 05-15-2025 End: 05-15-2025 ambulatory JERI RUFF [facility] Start: 05-14-2025 Evaluation and manag ement of inpatient NED[facility] Start: 05-14-2025 Evaluation and manag ement of inpatient NEDRA [facility] Start: 05-11-2025 Evaluation and manag ement of inpatient [facility] Start: 05-10-2025 [facility]: 05-10-2025 End: 05-17-2025 Evaluation and management of inpatient JADEN PIEDRA [facility] Start: 05-08-2025 End: 05-08-2025 Bamboo flowsheet Mony Herron ORTHOPAEDIC SURGEON Work Phone: [facility] Start: 05-08-2025 End: 05-08-2025 Bamboo flowsheet Mony Herron ORTHOPAEDIC SURGEON Work Phone: [facility] Start: 05-08-2025 End: 05-08-2025 Office outpatient visit 40 minutes Mony Herron ORTHOPAEDIC SURGEON Work Phone: [facility] Comment on above: Benign essential mikel mor (Primary Dx); Neurogenic pain; Sequelae of cerebral infarction; Cervical paraspinal muscle spasm; JOSIAH (obstructive sleep apnea); Carotid stenosis, bilateral; Polyneuropathy Start: 05-08-2025 End: 05-08-2025 ambulatory MONY HERRON Not Available Start: 04-30-2025 End: 04-30-2025 ambulatory [facility] Start: 04-14-2025 End: 04-18-2025 Evaluation and management of inpatient DO Domenicr Mesha VERDUGO Facility:[facility] Start: 04-14-2025 End: 04-16-2025 Emergency department patient visit [facility] Start: 04-14-2025 ambulatory [facility] Start: 04-14-2025 Emergency department patient visit Rivas Griggs Facility:[facility] Start: 04-14-2025 End: 04-18-2025 Evaluation and management of inpatient Domenicr Mesha VERDUGO [facility] Start: 04-12-2025 End: 04-12-2025 Bamboo flowsheet [...] underlying condition with diabetic polyneuropathy, unspecified whether long lines operator insulin use ([facility]); Pain due to onychomycosis of toenails of both feet Start: 04-12-2025 End: 04-12-2025 ambulatory BLAISE CHICAS Not Available Start: 04-10-2025 End: 04-10-2025 Bamboo flowsheet Barrie Montoya MD Work Phone: [facility] Start: 04-10-2025 End: 04-10-2025 Bamboo flowsheet Barrie Montoya MD Work Phone: [facility] Start: 04-10-2025 End: 04-10-2025 Office outpatient visit 25 minutes Barrie Montoya MD Work Phone: [facility] Comment on above: Benign essential mikel mor (Primary Dx); Neurogenic pain; Sequelae of cerebral infarction; Cervical paraspinal muscle spasm; JOSIAH (obstructive sleep apnea); Carotid stenosis, bilateral Start: 04-10-2025 End: 04-10-2025 ambulatory BARRIE MONTOYA Not Available Start: 03-12-2025 End: 03-12-2025 ambulatory [facility] Start: 03-08-2025 End: 03-08-2025 Bamboo flowsheet Blaise Chicas DPM Work Phone: [facility] Start: 03-08-2025 End: 03-08-2025 Bamboo flowsheet Blaise Chicas DPM Work Phone: [facility] Start: 03-08-2025 End: 03-08-2025 Postop follow up visit related to original px Blaise Chicas DPM Work Phone: [facility] Comment on above: Verruca plantaris (P rimary Dx); Foot pain, right; Diabetes mellitus due to underlying condition with diabetic polyneuropathy, unspecified whether halfway insulin use ([facility]); Pain due to onychomycosis of toenails of both feet Start: 03-08-2025 End: 03-08-2025 ambulatory BLAISE CHICAS Not Available Start: 02-28-2025 End: 02-28-2025 ambulatory [facility] Start: 02-15-2025 ambulatory [facility] Start: 02-14-2025 End: 02-17-2025 Emergency department patient visit [facility] Start: 01-03-2025 End: 01-03-2025 ambulatory RUTHIE [facility] Start: 12-14-2024 End: 12-14-2024 ambulatory [facility] Start: 12-04-2024 End: 12-04-2024 ambulatory MARQUIS LOUISE Facility:[facility] Start: 12-04-2024 End: 12-04-2024 Patient encounter procedure MARQUIS ARLETHAH-AMANKRA [facility] Start: 11-30-2024 End: 11-30-2024 Bamboo flowsheet Blaise [...] underlying condition with diabetic polyneuropathy, unspecified whether long lines operator insulin use ([facility]); Pain due to onychomycosis of toenails of both feet Start: 11-30-2024 End: 11-30-2024 ambulatory BLAISE CHICAS Not Available Start: 11-06-2024 End: 11-06-2024 ambulatory Mejia SINGH Facility:[facility] Start: 11-06-2024 End: 11-06-2024 Patient encounter procedure Mejia SINGH [facility] Start: 11-02-2024 End: 11-02-2024 ambulatory MARQUIS JANINANEELAAH-AMANKRA Facility:[facility] [place] Start: 11-02-2024 End: 11-02-2024 Patient encounter procedure MARQUIS JANINAANSAH-AMANKRA [facility] Start: 10-30-2024 End: 10-30-2024 ambulatory Mejia SINGH Facility:CD:[id number] Start: 10-25-2024 End: 10-25-2024 ambulatory MARQUIS NKANSAH-AMANKRA Facility:[facility] Start: 10-23-2024 End: 10-23-2024 ambulatory MARQUIS LOUISE Facility:[facility] Start: 10-23-2024 End: 10-23-2024 Patient encounter procedure MARQUIS LOUISE [facility] Start: 10-02-2024 End: 10-02-2024 ambulatory MARQUIS LOUISE Facility:[facility] Start: 09-25-2024 End: 09-25-2024 ambulatory MARQUIS LOUISE Facility:[facility] Start: 09-25-2024 End: 09-25-2024 Patient encounter procedure MARQUIS LOUISE [facility] Start: 09-14-2024 End: 09-14-2024 Bamboo flowspatrick Chicas DPM Work Phone: [facility] Start: 09-14-2024 End: 09-14-2024 Bamboo flowspatrick Chicas DPM Work Phone: [facility] Start: 09-14-2024 End: 09-14-2024 Patient encounter procedure Blaise Chicas DPM Work Phone: [facility] Comment on above: Verruca plantaris (P rimary Dx); Foot pain, right; Diabetes mellitus due to underlying condition with diabetic polyneuropathy, unspecified whether halfway insulin use ([facility] [...] Not Available Start: 08-22-2024 ambulatory MARQUIS NKANSAH-AMANKRA Facility:[facility] Start: 08-17-2024 ambulatory MARQUIS NKANSAH-AMANKRA Facility:[facility] Start: 08-14-2024 End: 08-17-2024 Telephone encounter Barrie Montoya MD Work Phone: [facility] Start: 08-08-2024 End: 08-08-2024 ambulatory MARQUIS NKANSAH-AMANKRA Facility:[facility] Start: 08-08-2024 End: 08-08-2024 Patient encounter procedure MARQUIS ROAANSAH-AMANKRA [facility] Start: 08-03-2024 End: 08-03-2024 Bamboo flowsheet [...] Bamboo flowsheet Barrie Montoya MD Work Phone: [facility] Start: 08-01-2024 End: 08-01-2024 Bamboo flowsheet Barrie Montoya MD Work Phone: [facility] Start: 08-01-2024 End: 08-01-2024 Office outpatient visit 25 minutes Barrie Montoya MD Work Phone: [facility] Comment on above: Neurogenic pain (Jyothi kervin Dx); Benign essential tremor Start: 08-01-2024 End: 08-01-2024 ambulatory BARRIE MONTOYA Not Available Start: 07-20-2024 End: 07-20-2024 Bamboo flowsheet Blaise Chicas DPM Work Phone: [facility] Start: 07-20-2024 End: 07-20-2024 Bamboo flowsheet Blaise Chicas DPM Work Phone: [facility] Start: 07-20-2024 End: 07-20-2024 Patient encounter procedure Blaise Chicas DPM Work Phone: [facility] Comment on above: Verruca plantaris (P rimary Dx); Foot pain, right; Xerosis cutis Start: 07-20-2024 End: 07-20-2024 ambulatory BLAISE CHICAS Not Available Start: 07-06-2024 End: 07-06-2024 Bamboo flowsheet Blaise Chicas DPM Work Phone: [facility] Start: 07-06-2024 End: 07-06-2024 Bamboo flowsheet Blaise Chicas DPM Work Phone: [facility] Start: 07-06-2024 End: 07-06-2024 Office outpatient visit 15 minutes Blaise Chicas DPM Work Phone: [facility] Comment on above: Xerosis cutis (Prima ry Dx); Verruca plantaris; Foot pain, right; Diabetes mellitus due to underlying condition with diabetic polyneuropathy, unspecified whether long lines operator insulin use ([facility]); Onychomycosis; Toe pain, bilateral Start: 07-06-2024 End: 07-06-2024 ambulatory BLAISE CHICAS Not Available Start: 07-05-2024 End: 07-05-2024 [facility] Start: 06-07-2024 End: 06-07-2024 ambulatory [facility] Start: 06-05-2024 End: 06-05-2024 [facility] Start: 06-01-2024 End: 06-01-2024 ambulatory BLAISE CHICAS Not Available Start: 10-14-2023 End: 10-14-2023 Patient encounter procedure Nereyda A Patricia [facility] Start: 10-01-2023 End: 10-01-2023 Patient encounter procedure Nereydasergio Joyametz [facility] Start: 10-01-2023 End: 10-01-2023 Patient encounter procedure Nereydasergio Joyametz [facility] Start: 09-13-2023 End: 09-13-2023 Patient encounter procedure Nereydasergio Joyametz [facility] Start: 06-10-2023 End: 06-10-2023 Patient encounter procedure Nereydasergio Joyametz [facility] Start: 04-15-2023 End: 04-15-2023 Lab Drop off Nereyda Cara JoyaPatricia [facility] Start: 04-13-2023 End: 04-13-2023 Patient encounter procedure Nereyda Gomez [facility] Start: 03-24-2023 End: 03-25-2023 [...] End: 06-09-2022 Patient encounter procedure Nereyda Gomez [facility] Start: 06-08-2022 End: 06-09-2022 ambulatory GAMALIEL DALEY Facility:[facility] Start: 05-11-2022 End: 05-11-2022 Patient encounter procedure Napoleon NOVA [facility] Start: 04-28-2022 End: 04-29-[address] VAN YOUSSEF . Facility:[facility] Start: 03-31-2022 End: 03-31-2022 Patient encounter procedure Nereyda Gomez [facility] Start: 2019 End: 02-07-2019 Patient encounter procedure DEFAULT PHYSICIAN Facility:[email or web address] Procedures Date Procedure Procedure Detail Performing Clinician Start: 08-24-2024 CRYOTHERAPY SKIN LESION Rodney Joy MD Work Phone: Start: 05-11-2022 Colonoscopy Napoleon Fernandez Comment on above: 2 polyps, diveticulo sis, IH Start: 01-11-2017 Cardioversion Nereyda Rian nmetz Back structure, excl uding neck (body structure) Nereyda Joyametz Cholecystectomy Nereyda Good mcdonough Colonoscopy Nereyda Joyametz History of hernia repair Ave Joyametz Tonsillectomy Nereyda Joyametz Plan of Treatment Date Care Activity Detail Author Start: 10-09-2025 End: 10-09-2025 Patient encounter procedure 10/09/2025 1:45 PM EST Office Visit [facility] [address] [place] [address] Barrie Montoya MD [address] [place] [address] [facility] Start: 09-11-2025 End: 09-11-2025 Patient encounter procedure 09/11/2025 1:15 PM EDT Office Visit [facility] [address] [place] [address] Rodney Joy MD [address] [place] [address] [facility] Start: 08-23-2025 End: 08-23-2025 Patient encounter procedure 08/23/2025 10:50 AM EDT Office Visit [facility] [address] [place] [address] Rodney Joy MD [address] [facility] [address] [place] [address] [facility] Start: 07-10-2025 End: 07-10-2025 Patient encounter procedure 07/10/2025 10:30 AM EDT Office Visit [facility] [address] [place] [address] Barrie Montoya MD [address]os [address] [address] [facility] Start: 06-21-2025 End: 06-21-2025 Patient encounter procedure 06/21/2025 10:40 AM EDT Office Visit [facility] [address] [place] [address] [address] [place] [address] Blaise Chicas DPM [address] [facility] [address] [place] [address] [facility] Start: 05-08-2025 End: 05-08-2025 Patient encounter procedure 05/08/2025 2:00 PM EDT Office Visit [facility] [address] [facility] [address] [place] [address] Mony Herron, ORTHOPAEDIC SURGEON [address] [phone] Arrived [facility] Comment on above: Arrived Start: 04-12-2025 End: 04-12-2025 Patient encounter procedure [facility] Comment on above: Verruca plantaris (P rimary Dx); Foot pain, right; Diabetes mellitus due to underlying condition with diabetic polyneuropathy, unspecified whether long lines operator insulin use ([facility]); Pain due to onychomycosis of toenails of both feet Start: 03-08-2025 End: 03-08-2025 Patient encounter procedure 03/08/2025 9:20 AM EDT Office Visit [facility] [address] [address] Blaise Chicas DPM [address] [address] Verruca plantaris (Primary Dx); Foot pain, right; Diabetes mellitus due to underlying condition with diabetic polyneuropathy, unspecified whether long lines operator insulin use (CMS/HCC); Pain due to onychomycosis of toenails of both feet [facility] Comment on above: Verruca plantaris (P rimary Dx); Foot pain, right; Diabetes mellitus due to underlying condition with diabetic polyneuropathy, unspecified whether long lines operator insulin use (CMS/HCC); Pain due to onychomycosis of toenails of both feet Start: 02-15-2025 End: 02-15-2025 Patient encounter procedure 02/15/2025 8:40 AM EDT Office Visit [facility] [address] [phone] Blaise Chicas DPM [address] [address] [facility] Start: 11-30-2024 End: 11-30-2024 Patient encounter procedure [facility] Comment on above: Verruca plantaris (P rimary Dx); Foot pain, right; Diabetes mellitus due to underlying condition with diabetic polyneuropathy, unspecified whether halfway insulin use (CMS/HCC); Pain due to onychomycosis of toenails of both feet Start: 10-10-2024 End: 10-10-2024 Patient encounter procedure 10/10/2024 10:45 AM EST Office Visit [facility] [address] [facility] [address] [place] [address] Barrie Montoya MD [address] [facility] [address] [place] [address] [facility] Start: 09-14-2024 End: 09-14-2024 Patient encounter procedure [facility] Comment on above: Verruca plantaris (P rimary Dx); Foot pain, right; Diabetes mellitus due to underlying condition with diabetic polyneuropathy, unspecified whether halfway insulin use ([facility] [...] 08/01/2024 1:30 PM EDT Office Visit [facility] [address] [phone] Barrie Montoya MD 5319 [facility] [address] [id number] [facility] Start: 08-01-2024 End: 08-01-2024 Patient encounter procedure 08/01/2024 11:30 AM EDT Office Visit [facility] [address] [facility] [address] [place] [phone] Barrie Montoya MD [address] [phone] Arrived [facility] Comment on above: Arrived Start: 07-20-2024 End: 07-20-2024 Patient encounter procedure [facility] Comment on above: Verruca plantaris (P rimary Dx); Foot pain, right; Xerosis cutis Start: 07-16-2024 Influenza vaccination Influenza Vacc ine (#[facility]) [facility] Start: 07-06-2024 End: 07-06-2024 Patient encounter procedure 07/06/2024 8:40 AM EDT Office Visit [facility] 112 [facility] [address] [place] [address] Blaise Chicas DPM [address] [facility] [address] [place] [address] Verruca plantaris (Primary Dx); Foot pain, right; Diabetes mellitus due to underlying condition with diabetic polyneuropathy, unspecified whether long lines operator insulin use ([facility]/HCC); Onychomycosis; Toe pain, bilateral; Xerosis cutis [facility] Comment on above: Verruca plantaris (P rimary Dx); Foot pain, right; Diabetes mellitus due to underlying condition with diabetic polyneuropathy, unspecified whether halfway insulin use ([facility]/HCC); Onychomycosis; Toe pain, bilateral; Xerosis cutis Immunizations Immunization Date Immunization Notes Care Provider Fa [facility] 04-05-2025 zoster vaccine recombinant LU OLMEDO [facility] 10-21-2023 RSV vaccine, preF A-preF B, recombinant LU SHARA [facility] 08-20-2023 influenza virus vaccine, unspecified formulation Blaise Chicas DPEthel Work Phone: [facility] 10-21-2022 SARS-CoV-2 (COVID-19 ) [id number] [employer] [facility] Comment on above: Result Comment: 2022: [id number] 08-26-2021 SARS-CoV-2 (COVID-19 ) mRNA BNT-162b2 vax [employer] [facility] 01-01-2021 SARS-CoV-2 (COVID-19 ) mRNA BNT-162b2 [employer] [facility] 12-09-2020 SARS-CoV-2 (COVID-19 ) mRNA BNT-162b2 vax Nereyda Gomez [facility] 11-06-2020 zoster vaccine recombinant LU OLMEDO [facility] 08-27-2020 influenza virus vaccine, unspecified formulation Nereyda Gomez [facility] 10-30-2019 tetanus toxoid, reduced diphtheria toxoid, and acellular pertussis vaccine, adsorbed LU OLMEDO [facility] 10-30-2019 zoster vaccine recombinant LU OLMEDO [facility] 08-16-2017 pneumococcal conjugate vaccine, 13 valent Nereyda Gomez [facility] 08-05-2017 influenza, unspecified formulation Nereyda Gomez [facility] 09-20-2015 zoster vaccine, live Nereyda [facility] NEGATED: Highlighted row has not occurred!10-13-2023 influenza virus vaccine, unspecified formulation Nereyda Gomez [facility] NEGATED: Highlighted row has not occurred!09-29-2023 influenza virus vaccine, unspecified formulation Nereyda Gomez [facility] Payers Date Payer Category Payer Private Health Insurance [id number] 2022 Unknown 2005 Unknown [id number] 2004 Medicare [id number] 1959 Medicare [id number] 1939 Unknown [id number] 2.16.8 40.1.601421.3.579.2.647 1939 Unknown [id number] 2.16.84 0.1.506433.3.579.2.593 1939 Unknown [id number] 2.16.84 0.1.939641.3.579.2.593 1939 Unknown [id number] 2.16.84 0.1.747452.3.579.2.593 1939 Unknown [id number] 2.16.84 0.1.971529.3.579.2.593 1939 Unknown [id number] 2.16.84 0.1.892694.3.579.2.593 1939 Unknown [id number] 2.16.84 0.1.112666.3.579.2.593 1939 Unknown [id number] 2.16.84 0.1.155291.3.579.2.593 1939 Unknown [id number] 2.16.84 0.1.979974.3.579.2.593 1939 Unknown [id number] 2.16.84 0.1.544139.3.579.2.593 1939 Unknown [id number] 2.16.84 0.1.929236.3.579.2.593 1939 Unknown [id number] 2.16.84 0.1.733782.3.579.2.593 1939 Unknown [id number] 2.16.8 40.1.381014.3.579.2.727 1939 Unknown [id number] 2.16.8 40.1.578152.3.579.2.727 1939 Unknown [id number] 2.16.8 40.1.729824.3.579.2.727 1939 Unknown [id number] 2.16.8 40.1.575739.3.579.2.727 1939 Unknown [id number] 2.16.8 40.1.729996.3.579.2.727 1939 Unknown [id number] 2.16. 840.1.519629.3.579.2.1286 1939 Unknown [id number] 2.16. 840.1.472616.3.579.2.1286 1939 Unknown [id number] 2.16. 840.1.556333.3.579.2.128 1939 Unknown [id number] 2.16. 840.1.880408.3.579.2.128 1939 Unknown [id number] 2.16. 840.1.807860.3.579.2.128 1939 Unknown [id number] 2.16. 840.1.796566.3.579.2.128 1939 Unknown [id number] 2.16. 840.1.778292.3.579.2.1286 1939 Unknown [id number] 2.16. 840.1.217161.3.579.2.1286 1939 Unknown [id number] 2.16. 840.1.909224.3.579.2.1286 1939 Unknown [id number] 2.16.8 40.1.814411.3.579.2.1259 1939 Unknown [id number] 2.16.84 0.1.990833.3.579.2.1259 1939 Unknown [id number] 2.16.84 0.1.651586.3.579.2.1259 1939 Unknown [id number] 2.16.84 0.1.537398.3.579.2.1259 1939 Unknown [id number] 2.16.84 0.1.782830.3.579.2.1259 1939 Unknown [id number] 2.16.84 0.1.436099.3.579.2.1259 1939 Unknown [id number] 2.16.84 0.1.622251.3.579.2.1259 1939 Unknown [id number] 2.16.84 0.1.671586.3.579.2.125 1939 Unknown [id number] 2.16.84 0.1.416524.3.579.2.1259 1939 Unknown [id number] 2.16.84 0.1.141546.3.579.2.125 1939 Unknown [id number] 2.16.84 0.1.083476.3.579.2.1259 1939 Unknown [id number] 2.16.84 0.1.385374.3.579.2.1259 1939 Unknown [id number] 2.16.8 40.1.310558.3.579.2.727 1939 Unknown [id number] 2.16.8 40.1.685440.3.579.2.727 1939 Unknown [id number] 2.16.8 40.1.506135.3.579.2.727 1939 Unknown [id number] 2.16.8 40.1.488306.3.579.2.727 1939 Unknown [id number] 2.16.8 40.1.157937.3.579.2.727 1939 Unknown [id number] 2.16.8 40.1.036187.3.579.2.727 1939 Unknown [id number] 2.16.8 40.1.211699.3.579.2.727 1939 Unknown [id number] 2.16.8 40.1.460228.3.579.2.727 1939 Unknown [id number] 2.16.8 40.1.450761.3.579.2.727 1939 Unknown [id number] 2.16.8 40.1.234811.3.579.2.727 1939 Unknown [id number] 2.16.8 40.1.122265.3.579.2.727 1939 Unknown [id number] 2.16.8 40.1.501359.3.579.2.727 1939 Unknown [id number] 2.16.8 40.1.497779.3.579.2.727 1939 Unknown [id number] 2.16.8 40.1.756609.3.579.2.727 1939 Unknown [id number] 2.16.8 40.1.466464.3.579.2.727 Social History Date Type Detail Facility Start: 03-31-2022 End: 08-24-2024 Tobacco smoking status Ex-smoker (finding) [facility] Start: 06-11-2025 Tobacco smoking status Never [facility] Start: 08-24-2024 End: 04-12-2025 Sex Assigned At Male [facility] Start: 08-24-2023 Tobacco smoking stat [...] of Social function [facility] Start: 02-26-2010 Sex Male (finding) [facility] Functional Status Date Assessment Result Facility 12-04-2024 Functional Status N/A [facility] 11-02-2024 Functional Status N/A [facility] 10-23-2024 Functional Status N/A [facility] 09-25-2024 Functional Status N/A [facility] 08-08-2024 Functional Status N/A [facility] 10-14-2023 Functional Status N/A [facility] 10-01-2023 Functional Status No [facility] 04-13-2023 Functional Status N/A [facility] 06-09-2022 Functional Status N/A [facility] 05-11-2022 Functional Status N/A [facility] Clinical Notes 03-31-2022 to 06-12-2025 Mony Herron, VANESSA - 05/08/2025 2:00 PM EDOscar Herron, ORTHOPAEDIC SURGEON - 05/08/2025 2:00 PM EDOscar Herron, VANESSA - 05/08/2025 2:00 PM EDOscar Herron, VANESSA - 05/08/2025 2:00 PM EDT Note Date & Type Note Facility 06-12-2025 Note Patient Education Urology Benign Prostatic Hyperplasia [...] Follow these instructions at home: ??? Take qgyn-pof-lwnighp and prescription medicines only as told by [...] do not get (more content not included)... [facility] 05-28-2025 Note SUBJECTIVE Reason for Visit: Nadir Beth is a 85 y.o. year old male patient being seen for status post TAVR follow-up. HPI: Nadir Beth is a 85 y.o. year old male with significant medical history of A-fib on Xarelto, hypertension, HFpEF, CKD, recent history of CVA 4 months back, renal artery stenosis transferred from [facility] for acute on chronic heart failure. Patient had history of stroke 4 months back and was in rehab patient has been having progressive lower extremity edema for few days. Patient was advised to increase his Lasix from 20 to 40 mg and blood work was done which showed BNP 6214 and was advised to go to the ED. In [place] ED chest x-ray showed pulmonary vascular congestion [...] severe , AR, mild MR and TR. He is status post TAVR 05/15/2025. Postprocedure temporary pacer was placed due to new LBBB. He was subsequently sent home on 30-day event monitor. 05/28/2025 office visit: Patient seen evaluated in the office today, he is accompanied by his and daughter. He reports doing well overall. He is status post TAVR 05/15/2025. His HERNANDEZ is slightly improved he can walk about 1 block with his walker before needing to take a break - with fatigue mostly in his legs. He reports his lower extremity edema has increased slightly, he has just started wearing his compression stockings. Otherwise, he denies chest pain, palpitations, or lightheadedness or dizziness. Medical History[1] Surgical History[2] Problem List[3] family history includes Coronary artery disease in his father. Social History[4] OBJECTIVE Visit Vitals Smoking Status Former Physical Exam Constitutional: General Appearance: well-developed, appears stated age. Level of Distress: no acute distress. Neck: Jugular Veins: normal jugular venous pressure. Lungs: Auscultation: no rales or rhonchi and normal breath sounds. Cardiovascular: Rate And Rhythm: regular Heart Sounds: + murmur. Extremities: Trace LE edema. Peripheral Pulses: Pulses: full and equal in all extremities except if noted. Abdomen: Inspection and Palpation: non distended or tender and soft. Musculoskeletal: Inspection: no joint tenderness or swelling. Neurologic: Gait: normal gait. Psychiatric: Mental Status: alert and normal affect. Skin: Inspection and Palpation: warm and dry. Allergies: Allergies[5] Outpatient Medications: Current Outpatient Medications Medication Instructions acetaminophen (TYLENOL) 1,000 mg, oral, Every 6 hours PRN acyclovir (Zovirax) 400 mg tablet Take 1 tablet twice a day by oral route for 30 days. Align 4 mg capsule TAKE 1 CAPSULE BY MOUTH DAILY AFTER COMPLETING THE ANTIBIOTICS COURSE ALPRAZolam (Xanax) 0.25 mg tablet 1 tablet, 2 times daily aspirin 81 mg EC tablet Take 1 tablet every day by oral route. aspirin 81 mg, oral, Daily b complex 0.4 mg tablet 1 tablet, oral, Daily b complex vitamins capsule 1 capsule, Daily bacitracin 500 unit/gram ointment 1 Application, Topical, 2 times daily calcium polycarbophil (FIBERCON) 1,250 mg, oral, Daily cholecalciferol (VITAMIN D-3) 25 mcg, oral, Daily cholecalciferol (VITAMIN D3) 2,000 Units, Daily cholecalciferol (VITAMIN D3) 125 mcg, oral, Daily cloNIDine (Catapres) 0.1 mg tablet 2 tablets, oral, 3 times daily cloNIDine (CATAPRES) 0.2 mg, oral, 3 times daily dapagliflozin propanediol (FARXIGA) 10 mg, oral, Daily dicyclomine (BENTYL) 20 mg dicyclomine (BENTYL) 10 mg, oral, 2 times daily empagliflozin (JARDIANCE) 25 mg, Daily ezetimibe (Zetia) 10 mg tablet Take 1 tablet every day by oral route. ezetimibe (ZETIA) 10 mg, oral, Daily ferrous sulfate 65 mg, Daily with breakfast fluticasone propion-salmeteroL 113 mcg-14 mcg/actuation aero powdr breath act w/sensor 1 Inhalation, inhalation, 2 times daily furosemide (LASIX) 80 mg, oral, 2 times daily furosemide (LASIX) 40 mg, oral, Daily glimepiride (Amaryl) 4 mg tablet 1 tablet, 2 times daily RT glimepiride (AMARYL) 8 mg, oral, Daily before breakfast insulin lispro (HUMALOG) 10 Units, subcutaneous, 3 times daily with meals insulin lispro (HUMALOG) 2-10 Units, subcutaneous, 3 times daily with meals labetalol (NORMODYNE) 300 mg, 3 times daily labetalol (NORMODYNE) 300 mg, oral, 3 times daily linaGLIPtin (TRADJENTA) 5 mg, Daily linaGLIPtin (TRADJENTA) 5 mg, oral, Daily loratadine (CLARITIN REDITABS) 10 mg, Daily loratadine (CLARITIN) 10 mg, oral, Daily magnesium oxide (MAG-OX) 250 mg magnesium oxide 500 mg, oral, 3 times daily metFORMIN (GLUCOPHAGE) 500 mg, Daily with breakfast metFORMIN (GLUCOPHAGE) 500 mg, oral, 3 times daily (more content not included)... [facility] 05-17-2025 Note Physical Therapy Physical Therapy Treatment Patient Name: [...] wheeled walker and a CGA of 1 required for decreased balance, and weakness throughout the BLEs. [...] Clicks T-Score: 18 Assessment/Plan PT Assessment PT Assessment/WASTE DISPOSAL LEAKAGE TESTER Summary: The patient tolerated the PT session [...] within reach, telemetry, and chair alarm were reconnecte (more content not included)... [facility] 05-17-2025 Note Cardiology Inpatient Progress Note Subjective Reason for consult: Acute on chronic HFpEF, hypertension urgency, TAVR. HPI: Nadir Beth is a 85 y.o. year old male with significant medical history of A-fib on Xarelto, hypertension, HFpEF, CKD, recent history of CVA 4 months back, renal artery stenosis transferred from [facility] for acute on chronic heart failure. Patient had history of stroke 4 months back and was in rehab patient has been having progressive lower extremity edema for few days. Patient was advised to increase his Lasix from 20 to 40 mg and blood work was done which showed BNP 6214 and was advised to go to the ED. In [place] ED chest x-ray showed pulmonary vascular congestion [...] has LBBB. Echo shows good TAVR function, moderate pericardial effusion (he had at baseline also).Temporary pacer [...] in no acute distress, denies chest pain, shortness of breath, palpitations, lightheaded dizziness, or lower extremity [...] Daily tamsulosin, 0.4 mg, oral, Daily with even (more content not included)... [facility] 05-17-2025 Note Discharge Planning sent updates through [facility] to [facility] Patient is medically ready for discharge. MATHEW confirmed facility is able to accept patient today. set up ambulance transport with [place] for 7:35 PM. Call report # ([phone]. Patient and his family notified. Treatment team and facility notified. DC packet left with patient's physical chart. [facility] 05-17-2025 Note Physical Therapy A PT treatment was attempted, however the patient was unavailable and out of the room. Will continue to follow patient for PT intervention. [facility] 05-17-2025 Note Cardiothoracic Surge ry Progress Note 05/17/2025 Room: [address] [place] [address] Subjective Sitting in bed. No complaints. Denies chest pain. Discharged from ICU yesterday. Temp pacer has been removed. No bradyarrhythmias overnight. Resumed Xerelto yesterday. Tolerating regular diet. Objective Patient Vitals for the past 24 hrs: BP Temp Temp src Pulse Resp SpO2 Weight 05/17/25 0918 167/78 36.6 ???C (97.9 ???F) Temporal 88 26 100 % -- 05/17/25 0526 -- -- -- -- -- -- 72.9 kg (160 lb 12.8 oz) 05/17/25 0400 (!) 115/44 -- -- 80 12 96 % -- 05/17/25 0000 111/51 -- -- 76 19 99 % -- 05/16/25 2000 135/55 36.5 ???C (97.7 ???F) Temporal 86 11 97 % -- 05/16/25 1601 141/68 -- -- 85 13 95 % -- 05/16/25 1505 130/57 36.4 ???C (97.5 ???F) Temporal -- 14 -- -- 05/16/25 1200 [...] Problems: Primary hypertension Acute congestive heart failure ([facility]) History of CVA (cerebrovascular accident) Type 2 diabetes mellitus, with long-term current use of insulin ([facility]) Other hyperlipidemia Chronic atrial fibrillation ([facility]) Chronic kidney disease Elevated troponin S/P TAVR (transcatheter aortic valve replacement) Aortic stenosis, severe Angina pectoris, unstable ([facility]) Nonrheumatic aortic valve stenosis Plan: [...] Cardiothoracic Surgery Inpatient from 8am-4pm call Ascom #[phone]. Only use [employer] chat for general questions. If unable to reach Ascom Number call hospital longitudinal float operator for Cardiothoracic Provider Creasing Machine Operator. Cardiothoracic Surgery outpatient Office Number [phone]. Cardiothoracic Surgery outpatient . [facility] 05-17-2025 Note Attestation signed by Nikolas Gonzalez MD at 05/23/2025 8:29 AM (Updated) I reviewed the salient portions of the patient history. I have seen and examined the patient during rounds with the resident/fellow Dr. Raza on 05/17. I repeated the stephenson components of the exam. Agree with the noted assessment and plan. After reviewing the imaging, the small pleural effusion likely started before the TAVR and seems related to heart failure. We discussed the case with the patient and family, and decided to treat with diuretics, plan outpatient follow-up with repeat imaging, and if thoracentesis is needed later, anticoagulation should be held. Nikolas Gonzalez MD [facility] Pulmonary and Critical Care Medicine Primary Pulmonology Progress Note Patient - Nadir [...] was admitted as a direct transfer from [place] on 05/10/2025 for acute on chronic heart failure. 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 He presented to the ED on the advice of his physician following an increase in lower extremity edema with associated labs showing a BNP 6200. In the [place] ED he was found to have pulmonary vascular congestion with right sided pleural effusion on chest x-ray, and found to be hypertensive at 190/68, and EKG showed A-fib, he was initially managed medically with lasix and antihypertensives prior to transfer. Patient follows up with Dr. Bland who had scheduled right heart cath on 05/10/2025. At [facility] [[email or web address]] echo was performed which was unable to [...] 12.8 oz). His temporal temperature is 36.5 ???C (97.7 ???F). His blood pressure is 115/44 (abnormal) and his pulse is 80. His respiration is 12 and oxygen saturation is 96%. Temp: [36.4 ???C (97.5 ???F)-36.5 ???C (97.7 ???F)] 36.5 ???C (97.7 ???F) Heart Rate: [76-90] 80 Resp: [11-19] 12 [...] Intake/Output Summary (Last 24 hours) at 05/17/2025 0774 Last data filed at 05/17/2025 0631 Gross per 24 hour Intake 672.71 ml Output 500 ml Net 172.71 ml Ventilator: Lab Results ABG: No results found for: PHART , YVV7WGM , PO2ART , ZWZ4CXV , IONCALART No results found for: PHVEN , HHB2TNF , PO2VEN , YIE2ELT , IONCALVEN CBC: Results from last 7 [...] 05/16/25 0310 05/15/25 0339 05/14/25 0338 SODIUM (more content not included)... [facility] 05-16-2025 Note Physical Therapy Patient defers session at this time due to significant fatigue and headache. Patient recently transferred out of MICU status post TAVR on 05/15. PT will check back at a later time to complete session. [facility] 05-16-2025 Note Attestation signed by García Muir MD at 05/16/2025 12:52 PM I reviewed the salient portions of the patient history. I have seen and examined the patient during rounds with the resident/fellow Stevo. I repeated the stephenson components of the exam. Agree with the noted assessment and plan. right lower lobe effusion with pneumonia will start the patient on Zosyn. Patient is status post TAVR procedure. García Muir MD Medical ICU Progress Note Patient - Nadir Beth Age - 85 y.o. - 1940 [facility] # - [id number] Date of Admission - 05/10/2025 2:37 AM HPI/Hospital Course Subjective Nadir Beth is an 85 y.o. male with a PMH of HFpEF, paroxysmal A-fib on Xarelto, CVA, T2DM, hypertension, renal artery stenosis left renal stent, and hyperlipidemia who was admitted as a direct transfer from [place] on 05/10/2025 for acute on chronic heart failure. 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 He presented to the ED on the advice of his physician following an increase in lower extremity edema with associated labs showing a BNP 6200. In the [place] ED he was found to have pulmonary vascular congestion with right sided pleural effusion on chest x-ray, and found to be hypertensive at 190/68, initially managed medically with lasix and antihypertensives prior to transfer. At [facility] [[email or web address]] echo was performed which was unable to [...] 4.6 oz). His temporal temperature is 36.3 ???C (97.3 ???F). His blood pressure is 125/44 (abnormal) and his pulse is 81. His respiration is 13 and oxygen saturation is 95%. Temp: [36.3 ???C (97.3 ???F)-37.2 ???C (99 ???F)] 36.3 ???C (97.3 ???F) Heart Rate: [80-103] 81 Resp: [12-20] 13 [...] ABG: No results found for: PHART , FJH4WJR , PO2ART , NJL8QFQ , IONCALART No results found for: PHVEN , PZQ3UKB , PO2VEN , ZTN8KKW , IONCALVEN CBC: Results from last 7 [...] HEMOGLOBIN A1C % 9.3* Cardiac: Results from l (more content not included)... [facility] 05-16-2025 Note Occupational Therapy Name: Nadir Beth Date of [...] appropriate. Check No Charge Time attempted: 1004 [facility] 05-16-2025 Note Cardiology Inpatient Progress Note Subjective Reason for consult: Acute on chronic HFpEF, hypertension urgency, TAVR. HPI: Nadir Beth is a 85 y.o. year old male with significant medical history of A-fib on Xarelto, hypertension, HFpEF, CKD, recent history of CVA 4 months back, renal artery stenosis transferred from [facility] for acute on chronic heart failure. Patient had history of stroke 4 months back and was in rehab patient has been having progressive lower extremity edema for few days. Patient was advised to increase his Lasix from 20 to 40 mg and blood work was done which showed BNP 6214 and was advised to go to the ED. In [place] ED chest x-ray showed pulmonary vascular congestion [...] has LBBB. Echo shows good TAVR function, moderate pericardial effusion (he had at baseline also).Temporary pacer [...] in no acute distress, denies chest pain, shortness of breath, palpitations, lightheaded dizziness, or lower extremity [...] -- -- 85 13 95 % -- 0 (more content not included)... [facility] 05-16-2025 Note Cardiothoracic Surge ry Progress Note 05/16/2025 Room: [address] [place] [address] Subjective Nadir Beth is a 85 y.o. 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 He was evaluated in [...] 92 % -- 05/16/25 0400 136/54 36.3 ???C (97.3 ???F) Temporal 89 13 94 % -- 05/16/25 0300 127/50 -- -- 83 16 94 % -- 05/16/25 0200 (!) 127/49 -- -- 90 19 97 % -- 05/16/25 0100 117/50 -- -- 83 17 96 % -- 05/16/25 0000 111/55 36.7 ???C (98.1 ???F) -- 83 14 94 % -- 05/15/25 2300 139/55 -- -- 97 16 95 % -- 05/15/25 2200 140/74 -- -- 95 20 93 % -- 05/15/25 2100 158/62 -- -- 86 19 99 % -- 05/15/25 2000 138/61 37.2 ???C (99 ???F) Temporal 84 14 99 % -- 05/15/25 [...] 98 % -- 05/15/25 1152 122/68 36.6 ???C (97.9 ???F) Temporal 98 15 96 % -- 05/15/25 [...] (TTE) limited Result Date: 05/15/2025 1 1 [facility] [[email or web address]] Heart Station [address] [place] [address] [phone] (fax) Echocardiogram-[facility] [[email or web address]] Name: NADIR BETH Study Date: 05/15/2025 12:46 PM B/P: 171 mmHg/100 mmHg HR: 87 bpm Date of : 1940 Location: [facility] [[email or web address]] Height: 72 in. Age: 85 (more content not included)... [facility] 05-15-2025 Note Name: Nadir stephen Date of : 1940 Today's Date: 05/15/25 Pt is unable to be seen for Physical Therapy at this time secondary to: per RN, pt currently off floor for TAVR. Will check back and complete therapy session as appropriate. Check No Charge Time attempted: 1515 [facility] 05-15-2025 Note Occupational Therapy Name: Nadir Beth Date of : 1940 Today's Date: 05/15/25 Pt is unable to be seen for therapy at this time secondary to Pt is off unit for TAVR. Will check back and complete therapy session as appropriate. Check No Charge Time attempted: 1501 [facility] 05-15-2025 Note Not sure baseline ki dney function, creatinine today 1.61 Will decrease Lasix to 40 mg daily [facility] 05-15-2025 Note Acute on chronic hea rt failure with preserved EF BNP of 736 Echo 05/10 showed EF preserved. Moderate AAS and AR, mild MR and TR Cardiac cath was done on 6/27: Moderate coronary artery disease and wedge pressure of 28 with cardiac output of 5.4 L/min cardiac index of 2.7 L/min/m??? Echo was done and showed EF appear [...] for CABG/AVR specially with history of CVA [facility] 05-15-2025 Note Highest troponin billy t up to 26 Likely combination of chronic kidney disease and CHF [facility] 05-15-2025 Note Continue Zetia [facility] 05-15-2025 Note Continue sliding sca le insulin A1c came back of 9.3 [facility] 05-15-2025 Note Continue current stanam nidine 0.2/3 times daily, hydralazine 25/ 3 times daily and labetalol [facility] 05-15-2025 Note CHADS2 DS vascular s core is 7 currently on Xarelto Patient already on labetalol [facility] 05-15-2025 Note On aspirin and Zetia [facility] 05-15-2025 Note Hospital Medicine Daily Progress Note - 05/15/2025 1:08 PM; Room: [address] [place] [address] Admission: 05/10/2025 2:37 AM; Length of stay: 5 days THE HOSPITALIST TEAM PREFERS TO USE [employer] FOR NON-URGENT COMMUNICATION 7AM-7PM. IF I DO NOT RESPOND WITHIN 20 MINUTES OR URGENT MATTERS, PLEASE CALL THROUGH THE PIPE INSULATOR. FROM 7PM-7AM, PLEASE PAGE [phone](COVR). Code Status: Full Code Barriers to Discharge: [...] Vitals BP 122/68 Pulse 98 Temp 36.6 ???C (97.9 ???F) (Temporal) Resp 15 Intake/Output Summary (Last 24 hours) at 05/15/2025 1308 Last data filed at 05/15/2025 0512 Gross per 24 hour Intake 480 ml Output 600 ml Net -120 ml Estimated body mass index is 22.13 kg/m??? as calculated from the following: Height as of this encounter: 1.828 m (5' 11.97 ). Weight as of this encounter: 73.9 kg (163 lb). Assessment and Plan Assessment & Plan Primary hypertension Continue current clonidine 0.2/3 times daily, hydralazine 25/ 3 times daily and labetalol Acute congestive heart failure ([facility]) Acute on chronic heart failure with preserved EF BNP of 736 Echo 05/10 showed EF preserved. Moderate AAS and AR, mild MR and TR Cardiac cath was done on 05/11: Moderate coronary artery disease and wedge pressure of 28 with cardiac output of 5.4 L/min cardiac index of 2.7 L/min/m??? Echo was done and showed EF appear [...] mellitus, with long-term current use of insulin ([facility]) Continue sliding scale insulin A1c came back of 9.3 Other hyperlipidemia Continue Zetia Chronic atrial fibrillation ([facility]) CHADS2 DS vascular score is [...] displayed. Results from last 7 days Lab (more content not included)... [facility] 05-15-2025 Note Cardiology Inpatient Progress Note Subjective Reason for consult: Acute on chronic HFpEF, hypertension urgency, TAVR. HPI: Nadir Beth is a 85 y.o. year old male with significant medical history of A-fib on Xarelto, hypertension, HFpEF, CKD, recent history of CVA 4 months back, renal artery stenosis transferred from [facility] for acute on chronic heart failure. Patient had history of stroke 4 months back and was in rehab patient has been having progressive lower extremity edema for few days. Patient was advised to increase his Lasix from 20 to 40 mg and blood work was done which showed BNP 6214 and was advised to go to the ED. In [place] ED chest x-ray showed pulmonary vascular congestion [...] in no acute distress, denies chest pain, shortness of breath, palpitations, lightheaded dizziness, or lower extremity [...] 96 % -- 05/15/25 0712 161/71 36.4 ???C (97.5 ???F) Temporal 92 23 97 % -- 05/15/25 0512 -- -- -- -- -- -- 73.9 kg (163 lb) 05/15/25 0406 154/82 -- -- 84 14 94 % -- 05/14/25 2039 127/50 -- -- 66 -- -- -- 05/14/25 2000 110/84 -- -- 68 -- -- -- 05/14/25 1600 159/61 36.4 ???C (97.5 ???F) Temporal 77 22 96 % -- 05/14/25 1539 149/72 -- -- 71 -- -- -- 05/14/25 1132 147/52 36.6 ???C (97.9 ???F) Temporal 76 13 97 % -- BP 145/66 Pulse 94 Temp 36.4 ???C (97.5 ???F) (Temporal) Resp 18 Ht 1.828 m (5' 11.97 ) Wt 73.9 kg (163 lb) SpO2 96% (more content not included)... 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 Additional Equipment Requests [facility] 05-14-2025 Note Physical Therapy Physical Therapy Treatment Patient Name: [...] is agreeable to working with PT as telma, BRANDEN munguiaays session. Vision - Basic Vision - Basic [...] implement solutions Communication: (decreased communication with this WASTE DISPOSAL LEAKAGE TESTER d/t lethargy) General Assessment General Assessment Hearing: [employer] [place] - family reports he has hearing aids [...] and from a bed to a chair (in (more content not included)... [facility] 05-14-2025 Note Patient was admitted to the hospital for: [...] RN, BSN Cardiology Outpatient Coordinator Cardiopulmonary Rehab [facility] 05-14-2025 Note Continue [facility] 05-14-2025 Note On aspirin and tia [facility] 05-14-2025 Note Acute on chronic hea rt failure with preserved EF BNP of 736 Echo 05/10 showed EF preserved. Moderate AAS and AR, mild MR and TR Cardiac cath was done on 05/11: Moderate coronary artery disease and wedge pressure of 28 with cardiac output of 5.4 L/min cardiac index of 2.7 L/min/m??? Echo was done and showed EF appear [...] bypass grafting/AVR specially with history of CVA [facility] 05-14-2025 Note Highest troponin billy t up to 26 Likely combination of chronic kidney disease and CHF [facility] 05-14-2025 Note Continue current satnam nidine 0.2/3 times daily, hydralazine 25/ 3 times daily and labetalol [facility] 05-14-2025 Note CHADS2 DS vascular s core is 7 currently on Xarelto Patient already on labetalol [facility] 05-14-2025 Note Not sure baseline ki dney function, creatinine today 1.74 Will decrease Lasix to 40 mg daily [facility] 05-14-2025 Note Continue sliding sca le insulin A1c came back of 9.3 [facility] 05-14-2025 Note Hospital Medicine Daily Progress Note - 05/14/2025 12:11 PM; Room: [address] [place] [address] Admission: 05/10/2025 2:37 AM; Length of stay: 4 days THE HOSPITALIST TEAM PREFERS TO USE [employer] FOR NON-URGENT COMMUNICATION 7AM-7PM. IF I DO NOT RESPOND WITHIN 20 MINUTES OR URGENT MATTERS, PLEASE CALL THROUGH THE PIPE INSULATOR. FROM 7PM-7AM, PLEASE PAGE [phone](COVR). Code Status: Full Code Barriers to Discharge: [...] Vitals BP 147/52 Pulse 76 Temp 36.6 ???C (97.9 ???F) (Temporal) Resp 13 Intake/Output Summary (Last 24 hours) at 05/14/2025 1211 Last data filed at 05/13/20251999 Gross per 24 hour Intake -- Output 650 ml Net -650 ml Estimated body mass index is 22.18 kg/m??? as calculated from the following: Height as of this encounter: 1.828 m (5' 11.97 ). Weight as of this encounter: 74.1 kg (163 lb 6.4 oz). Assessment and Plan Assessment & Plan Primary hypertension Continue current clonidine 0.2/3 times daily, hydralazine 25/ 3 times daily and labetalol Acute congestive heart failure ([facility]) Acute on chronic heart failure with preserved EF BNP of 736 Echo 05/10 showed EF preserved. Moderate AAS and AR, mild MR and TR Cardiac cath was done on 05/11: Moderate coronary artery disease and wedge pressure of 28 with cardiac output of 5.4 L/min cardiac index of 2.7 L/min/m??? Echo was done and showed EF appear [...] mellitus, with long-term current use of insulin ([facility]) Continue sliding scale insulin A1c came back of 9.3 Other hyperlipidemia Continue Zetia Chronic atrial fibrillation ([facility]) CHADS2 DS vascular score is [...] 99 < > 101 CO2 mmol/L 29 < > 26 BUN mg/dL 34* [...] Historical Values: (Includes values prior to this (more content not included)... 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 [...] upper extremity supported, Left upper extremity supported, No upper extremity supported, Unilateral upper extremity supported, Feet supported Static Sitting-Level of Assistance: Contact guard Static Sitting-Comment/Number of Minutes: Studio Assistant noted posterior lean while utilizing B UE's in bathing task. Tactile cues required to race and sports book writer self Dynamic Sitting Balance Dynamic Sitting [...] With device Dynamic Standing-Balance: (While participating in rosaura hygiene) Dynamic Standing Balance-Level of Assistance: Contact [...] Eating meals?: None (Independent) Total Score OT [facility]: 21 Assessment/Plan OT Assessment OT Impairments: Decreased ADL status, Decreased endurance, Decreased functional mobility, Decreased IADLs OT Assessment/SOLID STATE TESTER Summary: Pt is progressing toward goals but would benefit from continued therapy to increase balance, safety and endurance during functional mobility and ADL's to return to PLOF Prognosis: Fair Evaluation/Treatment Tolerance: Patient tolerated treatment well Medical Staff Made Aware: Yes Strengths: Support of extended (more content not included)... [facility] 05-14-2025 Note Cardiology Inpatient Progress Note Subjective Reason for consult: Acute on chronic HFpEF, hypertension urgency, TAVR. HPI: Nadir Beth is a 85 y.o. year old male with significant medical history of A-fib on Xarelto, hypertension, HFpEF, CKD, recent history of CVA 4 months back, renal artery stenosis transferred from [facility] for acute on chronic heart failure. Patient had history of stroke 4 months back and was in rehab patient has been having progressive lower extremity edema for few days. Patient was advised to increase his Lasix from 20 to 40 mg and blood work was done which showed BNP 6214 and was advised to go to the ED. In [place] ED chest x-ray showed pulmonary vascular congestion with right-sided pleural effusion and EKG showed A-fib, patient was found to be hypertensive with blood pressure 190/68. Patient follows up with Dr. Balnd who had scheduled right heart cath on 05/10/2025. Echo done today showed unable to obtain EF secondary to rhythm however it was preserved, severe RA and LA enlargement, moderate to severe , AR, mild MR and TR. 05/14/2025: Patient seen evaluated bedside today. He appears in no acute distress, denies chest pain, shortness of breath, palpitations, lightheaded dizziness, or lower extremity [...] -- -- -- 05/14/25 0746 166/68 36.7 ???C (98.1 ???F) Oral 79 12 -- -- 05/14/25 0745 163/77 36.7 ???C (98.1 ???F) Oral 79 16 97 % -- 05/14/25 [...] -- -- -- 05/13/25 1200 128/52 36.2 ???C (97.2 ???F) Temporal 78 17 96 % -- BP 163/65 Pulse 79 Temp 36.7 ???C (98.1 ???F) (Oral) Resp 12 Ht 1.828 m (5' 11.97 ) Wt 74.1 kg (163 lb 6.4 oz) SpO2 97% BMI 22.18 kg/m??? Wt Readings from Last 3 Encounters: 05/14/25 74.1 kg (163 lb 6.4 oz) PHYSICAL EXAM: General: Alert and oriented, Appears comfortable in no acute distress. HENT: Head: Normocephalic, atraumatic. Eyes: Conjunctiva clear, sclera anicteric. No periorbital edema. Nose: No nasal congestion or discharge. Throat: Mucous membranes moist and pink. Neck: Supple, no lymphadenopathy. No bruits. No jugular venous distension (JVD) at 45???. Pulmonary: Symmetrical chest rise, no accessory muscle use. Clear to auscultation bilaterally. No wheezes, rales (more content not included)... [facility] 05-14-2025 Note discharge planning: return to [facility] 0917 updates sent to [facility], via [employer] system [address]; notice sent to SNF, via [employer] system, with request to confirm bed availability today 1028 SNF has bed today but Discharge Order has been removed for Patient to have TAVR tomorrow; SNF notified via [employer] system discharge barriers: [] no insurance precert needed for SNF, but confirm bed at discharge [] [facility] 05-13-2025 Note Highest troponin billy t up to 26 Likely combination of chronic kidney disease and CHF [facility] 05-13-2025 Note Not sure baseline ki dney function, creatinine today 1.65 [facility] 05-13-2025 Note CHADS2 DS vascular s core is 7 currently on Xarelto Patient already on labetalol [facility] 05-13-2025 Note Continue Zetia [facility] 05-13-2025 Note Acute on chronic hea rt failure with preserved EF BNP of 736 Echo 05/10 showed EF preserved. Moderate AAS and AR, mild MR and TR Cardiac cath was done on 05/11: Moderate coronary artery disease and wedge pressure of 28 with cardiac output of 5.4 L/min cardiac index of 2.7 L/min/m??? Echo was done and showed EF appear [...] bypass grafting/AVR specially with history of CVA [facility] 05-13-2025 Note Continue sliding sca le insulin A1c came back of 9.3 [facility] 05-13-2025 Note Continue current satnam nidine 0.2 3 times daily, hydralazine 25 3 times daily and labetalol [facility] 05-13-2025 Note On aspirin and Zetia [facility] 05-13-2025 Note Hospital Medicine Daily Progress Note - 05/13/2025 10:51 AM; Room: [address] [place] [address] Admission: 05/10/2025 2:37 AM; Length of stay: 3 days THE HOSPITALIST TEAM PREFERS TO USE [employer] CHAT FOR NON-URGENT COMMUNICATION 7AM-7PM. IF I DO NOT RESPOND WITHIN 20 MINUTES OR URGENT MATTERS, PLEASE CALL THROUGH THE PIPE INSULATOR. FROM 7PM-7AM, PLEASE PAGE [phone](COVR). Code Status: Full Code Barriers to Discharge: [...] Vitals BP 151/55 Pulse 81 Temp 36.4 ???C (97.5 ???F) (Temporal) Resp 15 Intake/Output Summary (Last 24 hours) at 05/13/2025 1051 Last data filed at 05/13/2025 0900 Gross per 24 hour Intake 1020 ml Output 2610 ml Net -1590 ml Estimated body mass index is 22.42 kg/m??? as calculated from the following: Height as of this encounter: 1.828 m (5' 11.97 ). Weight as of this encounter: 74.9 kg (165 lb 3.2 oz). Assessment and Plan Assessment & Plan Primary hypertension Continue current clonidine 0.2 3 times daily, hydralazine 25 3 times daily and labetalol Acute congestive heart failure ([facility]) Acute on chronic heart failure with preserved EF BNP of 736 Echo 05/10 showed EF preserved. Moderate AAS and AR, mild MR and TR Cardiac cath was done on 05/11: Moderate coronary artery disease and wedge pressure of 28 with cardiac output of 5.4 L/min cardiac index of 2.7 L/min/m??? Echo was done and showed EF appear [...] mellitus, with long-term current use of insulin ([facility]) Continue sliding scale insulin A1c came back of 9.3 Other hyperlipidemia Continue Zetia Chronic atrial fibrillation ([facility]) CHADS2 DS vascular score is [...] last 7 days Lab Units 05/13/25 0704 05/12/25 2004 05/12/25 1615 05/12/25 1123 05/12/25 0707 05/11/25 2102 POCT GLUCOSE mg/dL 222* 275* 285* 332* 214* 306* Historical Values: (Includes values prior to this admission) Lab Results Component Value Date TSH 1.34 05/10/2025 HDL 69 05/11/2025 LDL 118 05/11/20 (more content not included)... [facility] 05-13-2025 Note Cardiology Inpatient Progress Note Subjective Reason for consult: Acute on chronic HFpEF, hypertension urgency HPI: Nadir Beth is a 85 y.o. year old male with significant medical history of A-fib on Xarelto, hypertension, HFpEF, CKD, recent history of CVA 4 months back, renal artery stenosis transferred from [facility] for acute on chronic heart failure. Patient had history of stroke 4 months back and was in rehab patient has been having progressive lower extremity edema for few days. Patient was advised to increase his Lasix from 20 to 40 mg and blood work was done which showed BNP 6214 and was advised to go to the ED. In [place] ED chest x-ray showed pulmonary vascular congestion [...] Resp SpO2 Weight 05/13/25 0800 151/55 36.4 ???C (97.5 ???F) Temporal 81 15 94 % -- 05/13/25 0425 -- -- -- -- -- -- 74.9 kg (165 lb 3.2 oz) 05/13/25 0400 (!) 135/92 36.2 ???C (97.2 ???F) Temporal 90 20 90 % -- 05/13/25 0004 125/54 36.8 ???C (98.2 ???F) Temporal 73 22 95 % -- 05/12/25 2154 149/69 -- -- 80 17 96 % -- 05/12/25 1935 144/62 36.6 ???C (97.9 ???F) Temporal 71 17 92 % -- 05/12/25 1800 112/60 -- -- 69 20 94 % -- 05/12/25 1637 155/61 -- -- -- -- -- -- 05/12/25 1200 123/61 36.5 ???C (97.7 ???F) Temporal 74 14 92 % -- BP 151/55 Pulse 81 Temp 36.4 ???C (97.5 ???F) (Temporal) Resp 15 Ht 1.828 m (5' 11.97 ) Wt 74.9 kg (165 lb 3.2 oz) SpO2 94% BMI 22.42 kg/m??? Wt Readings from Last 3 Encounters: 05/13/25 74.9 kg (165 lb 3.2 oz) PHYSICAL EXAM: General: Alert and oriented, Appears comfortable in no acute distress. HENT: Head: Normocephalic, atraumatic. Eyes: Conjunctiva clear, sclera anicteric. No periorbital edema. Nose: No nasal congestion or discharge. Throat: Mucous membranes moist and pink. Neck: Supple, no lymphadenopathy. No bruits. No jugular venous distension (JVD) at 45???. Pulmonary: Symmetrical chest rise, no accessory muscle use. Clear to auscultation bilaterally. No wheezes, rales, or rhonchi. No tenderness. Cardiovascular: RUSB murmur. Peripheral Vascular: Pulses (radial, dorsalis pedis, posterior tibial) 2+ bilaterally and symmetrical. No edema, cyanosis, or clubbing. Capillary refill <2 seconds. Abdomen: Flat, no visible pulsations or distension. Bowel (more content not included)... [facility] 05-12-2025 Note CHADS2 DS vascular s core is 7 currently on Xarelto Patient already on labetalol [facility] 05-12-2025 Note Not sure baseline ki dney function, creatinine today 1.63 [facility] 05-12-2025 Note Continue sliding sca le insulin A1c came back of 9.3 [facility] 05-12-2025 Note Highest troponin billy t up to 26 Likely combination of chronic kidney disease and CHF [facility] 05-12-2025 Note Acute on chronic hea rt failure with preserved EF BNP of 736 Echo 05/10 showed EF preserved. Moderate AAS and AR, mild MR and TR Cardiac cath was done on 05/11: Moderate coronary artery disease and wedge pressure of 28 with cardiac output of 5.4 L/min cardiac index of 2.7 L/min/m??? Echo was done and showed EF appear [...] bypass grafting/AVR specially with history of CVA [facility] 05-12-2025 Note Continue current satnam nidine 0.2 3 times daily, hydralazine 25 3 times daily and labetalol [facility] 05-12-2025 Note Continue Zetia [facility] 05-12-2025 Note On aspirin and Zetia [facility] 05-12-2025 Note Hospital Medicine Daily Progress Note - 05/12/2025 12:25 PM; Room: [address] [place] [address] Admission: 05/10/2025 2:37 AM; Length of stay: 2 days THE HOSPITALIST TEAM PREFERS TO USE [employer] CHAT FOR NON-URGENT COMMUNICATION 7AM-7PM. IF I DO NOT RESPOND WITHIN 20 MINUTES OR URGENT MATTERS, PLEASE CALL THROUGH THE PIPE INSULATOR. FROM 7PM-7AM, PLEASE PAGE [phone](COVR). Code Status: Full Code Barriers to Discharge: [...] Vitals BP 145/63 Pulse 85 Temp 36.4 ???C (97.5 ???F) (Temporal) Resp 13 Intake/Output Summary (Last 24 hours) at 05/12/2025 1225 Last data filed at 05/12/2025 1014 Gross per 24 hour Intake -- Output 3450 ml Net -3450 ml Estimated body mass index is 22.83 kg/m??? as calculated from the following: Height as of this encounter: 1.828 m (5' 11.97 ). Weight as of this encounter: 76.3 kg (168 lb 3.2 oz). Assessment and Plan Assessment & Plan Primary hypertension Continue current clonidine 0.2 3 times daily, hydralazine 25 3 times daily and labetalol Acute congestive heart failure ([facility]) Acute on chronic heart failure with preserved EF BNP of 736 Echo 05/10 showed EF preserved. Moderate AAS and AR, mild MR and TR Cardiac cath was done on 05/11: Moderate coronary artery disease and wedge pressure of 28 with cardiac output of 5.4 L/min cardiac index of 2.7 L/min/m??? Echo was done and showed EF appear [...] mellitus, with long-term current use of insulin ([facility]) Continue sliding scale insulin A1c came back of 9.3 Other hyperlipidemia Continue Zetia Chronic atrial fibrillation ([facility]) CHADS2 DS vascular score is [...] LDL 118 05/11/2025 No results found for: [id number] , IRON , TI (more content not included)... [facility] 05-12-2025 Note Attestation signed by Nicole Reynolds MD at 05/12/2025 10:18 PM 05/12/25 By using the attestations below, the signing clinician agrees that I have read and verify that the documentation has been personally reviewed by me and [...] He is more suitable for TAVR. Nicole Reynolds MD, ScM, MSc Cardiac Medical Operations Supervisor Email: [email or web address] Nicole Reynolds MD, ScM, MSc Cardiac Medical Operations Supervisor Email: [email or web address] Cardiology Progress Note Subjective Patient was examined at the bedside. No acute events overnight. Underwent cath yesterday and showed moderate CAD and had elevated PCWP of 28 mmHg. Objective Current Medications[1] Objective: Patient Vitals for the past 24 hrs: BP Temp Temp src Pulse Resp SpO2 Weight 05/12/25 1014 145/63 -- -- -- -- -- -- 05/12/25 0800 171/77 36.4 ???C (97.5 ???F) Temporal 85 13 93 % -- 05/12/25 [...] 13 -- -- 05/11/25 1600 131/53 36.5 ???C (97.7 ???F) Temporal 80 12 97 % -- 05/11/25 [...] Bubble Study Result Date: 05/10/2025 1 1 [facility] [[email or web address]] Heart Station [address] [place] [address] [phone] (fax) Echocardiogram-[facility] [[email or web address]] Name: NADIR BETH Study Date: 05/10/2025 09:19 AM B/P: 178 mmHg/92 mmHg HR: 104 bpm Date of : 1940 Location: [facility] [[email or web address]] Height: 72 in. Age: 85 year(s) Patient [...] (0 - 0.42) LVSVI, 2D 24.6 ml/m2 LVO (more content not included)... [facility] 05-11-2025 Note . No associated orders from this encounter found during lookback period of 72 hours. [facility] 05-11-2025 Note COrders from past 72 hours: Case Request Lav Crewman: Coronary angiography, Right heart cath; Standing Cardiac catheterization; Standing [facility] 05-11-2025 Note Insulin blood sugar check diet A1c came back of 9.3 [facility] 05-11-2025 Note Highest troponin billy t up to 26 Likely combination of chronic kidney disease and CHF [facility] 05-11-2025 Note Not sure baseline ki dney function, creatinine today 1.56, will monitor [facility] 05-11-2025 Note CHADS2 DS vascular s core is 7 currently on Eliquis Patient on heparin drip and plan to switch on Eliquis after procedure Patient already on labetalol [facility] 05-11-2025 Note Continue Zetia [facility] 05-11-2025 Note Acute on chronic hea rt failure with preserved EF BNP of 736 Echo 05/10 showed EF preserved. Moderate AAS and AR, mild MR and TR Patient scheduled for cardiac cath today Lasix 40 IV every 8 hours Continue goal-directed medical therapy Farxiga, labetalol, Aldactone Uptitrate meds after Cardiac cath [facility] 05-11-2025 Note Continue current satnam nidine 0.2 3 times daily, hydralazine 25 3 times daily and labetalol [facility] 05-11-2025 Note On aspirin statin wi th deconditioning and gait abnormality with fall risk PT OT to see him [facility] 05-11-2025 Note Hospital Medicine Daily Progress Note - 05/11/2025 4:14 PM; Room: [facility] [place] [address] Admission: 05/10/2025 2:37 AM; Length of stay: 1 days THE HOSPITALIST TEAM PREFERS TO USE [employer] CHAT FOR NON-URGENT COMMUNICATION 7AM-7PM. IF I DO NOT RESPOND WITHIN 20 MINUTES OR URGENT MATTERS, PLEASE CALL THROUGH THE PIPE INSULATOR. FROM 7PM-7AM, PLEASE PAGE [phone](COVR). Code Status: Full Code Barriers to Discharge: [...] Vitals BP 140/64 Pulse 81 Temp 36.5 ???C (97.7 ???F) (Temporal) Resp (!) 27 Intake/Output Summary (Last 24 hours) at 05/11/2025 1614 Last data filed at 05/11/2025 1106 Gross per 24 hour Intake 253.27 ml Output 1210 ml Net -956.73 ml Estimated body mass index is 23.94 kg/m??? as calculated from the following: Height as [...] mellitus, with long-term current use of insulin ([facility]) Insulin blood sugar check diet A1c came back of 9.3 Other hyperlipidemia Continue Zetia Chronic atrial fibrillation ([facility]) CHADS2 DS vascular score is [...] LDL 118 05/11/2025 No results found for: [id number] , IRON , TIBC , C3 , C4 , SHERRY , CANCA , ASO , PSA , CEA , CA125 , CA199 , AFP , CA153 Imaging Complete Echo (TTE) w/wo Imaging Agent, Strain, 3D, Bubble Study 1 1 [facility] [[email or web address]] Heart Station [address] [place] [phone] (fax) Echocardiogram-[facility] [[email or web address]] Name: (more content not included)... [facility] 05-11-2025 Note discharge planning: to return to [facility] updates sent to [facility], via [facility] system discharge barriers: [] no insurance precert needed for any placement from this admission, but confirm bed still available before discharge [] [facility] 05-11-2025 Note CTA CHEST W IV CONTR AST 05/11/2025 1:46 PM CLINICAL INDICATIONS: Aortic valve [...] 3 cusped view, anterior view, and no NIGHT TIME NANNY-CAU view are saved in 3-D volume rendered [...] the common and external iliac arteries bilaterally. IMPRESSION: Moderate to large right [...] 26 mm Electronically signed: Yenni Stafford MD. [facility] Comment on above: Order Comment: Patie nt had pre procedure medications already for cath 05-11-2025 Note Attestation signed by Azeem Green MD at 05/11/2025 4:45 PM I personally saw and examined the patient on rounds and agree with the assessment and plan of the medical staff physician Cardiology Progress Note Subjective Patient was examined at the bedside. No acute events overnight. Patient scheduled for cardiac cath today. Objective Current Medications[1] Objective: Patient Vitals for the past 24 hrs: BP Temp Temp src Pulse Resp SpO2 Weight 05/11/25 0800 149/57 36.5 ???C (97.7 ???F) Temporal 72 14 97 % -- 05/11/25 0600 138/54 -- -- 75 11 98 % -- 05/11/25 0547 -- -- -- -- -- -- 80 kg (176 lb 5.9 oz) 05/11/25 0400 147/61 36.6 ???C (97.9 ???F) -- 82 14 98 % -- 05/11/25 0200 135/60 -- -- 82 12 97 % -- 05/11/25 0000 127/50 36.5 ???C (97.7 ???F) -- 78 13 95 % -- 05/10/25 1738 134/60 -- -- 71 13 97 % -- 05/10/25 1647 146/71 -- -- -- -- -- -- 05/10/25 1600 146/71 -- -- 73 16 99 % -- 05/10/25 1211 156/71 36.5 ???C (97.7 ???F) Temporal 75 13 95 % -- Physical [...] Bubble Study Result Date: 05/10/2025 1 1 [facility] [[email or web address]] Heart Station [address] [place] [address] [phone] (fax) Echocardiogram-[facility] [[email or web address]] Name: NADIR BETH Study Date: 05/10/2025 09:19 AM B/P: 178 mmHg/92 mmHg HR: 104 bpm Date of : 1940 Location: [facility] [[email or web address]] Height: 72 in. Age: 85 year(s) Patient [...] right sided pressures. Left Atrium: The left atr (more content not included)... [facility] 05-11-2025 Note Physical Therapy Physical Therapy Treatment Patient Name: [...] time General Assessment General Assessment Hearing: Mild RAMAH [place] CHAPTER Hand Dominance: Right Static Sitting Balance Static [...] Clicks T-Score: 18 Assessment/Plan PT Assessment PT Assessment/WASTE DISPOSAL LEAKAGE TESTER Summary: Patient is a 85 y/o male [...] Expected End Date End Date LTG - Janay (more content not included)... [facility] 05-11-2025 Note Patient: Nadir amanda Procedure Information Date/Time: 05/11/25 1130 Procedures: Coronary angiography Right heart cath Location: [facility] [[email or web address]] GENERAL ENGINEERING TEACHER 3 / [facility] (Cath) Providers: Aissatou Hughes MD Clinical information reviewed: Tobacco Allergies Meds [...] consented to blood products. Additional Equipment Requests [facility] 05-10-2025 Note Attestation signed by Landen Rice PT at 05/10/2025 3:50 PM This race and sports book writer (PT) provided one-on-one supervision, direction of patient care/therapeutic interventions, and reviewed documentation. Physical Therapy Physical Therapy Evaluation Patient Name: Nadir Beth : 1940 Today's Date: 05/10/2025 Start Time: 1432 Stop Time: 1504 Time Calculation (min): 32 min PT Evaluation Time Entry PT Evaluation (Moderate) Time Entry: 32 General Subjective: Patient lying supine in bed upon arrival and was agreeable to session. Patient reported feeling slightly dizzy when sitting EOB that improved with time. Required Greg to stand from EOB with RW and SBA during ambulation with RW. Completed session supine in bed. Patient Summary: Patient is an 85 y/o male admitted 05/10/25 from [facility] where he presented following outpatient labs done by his PCP which included high BNP and progressive lower extremity edema. Chest x-ray showed pulmonary vascular congestion with [...] Intact General Assessment General Assessment Hearing: mild RAMAH [place] CHAPTER Hand Dominance: Right Home Living Home Living [...] Level of Function Prior Function Level of [place]: Independent with ADLs and functional transfers, Independent [...] stability and assist in initiation/anterior weight shift. Patient demos good LE strength req (more content not included)... [facility] 05-10-2025 Note 05/10/25 1520 Admission Assessment Questions Verify insurance with patient Yes Do you understand medical disease or what brought you into the hospital? Yes Who is your current PCP? Van Youssef Can I schedule a follow up appointment for you at the time of discharge? No () Do you understand why you are taking your current medications? Yes Are you taking your medications as prescribed? Yes Did patient provide teach back? Yes Pharmacy Bedside Delivery Status Interested ([facility]) Does the patient have a manager case management assigned to them through their insurance? No Living Arrangement (Current/Prior to Hospitalization) Private residence;Inpatient rehab facility (2 story house w/ 5 steps. Lives with his and she is able to help after discharge as needed. Came to us from [facility] x 3 weeks / Bedhold.) Does the patient have history of HHC or SNF? Yes (Hx HHC et Current SNF.) Assistive Device Walker;Wheelchair (@ [facility]. Walker at home.) Patient's goal for discharge [facility] Was patient reminded that goal for [...] the patient's family members at his bedside. [facility] 05-10-2025 Note Occupational Therapy Occupational Therapy Evaluation Patient Name: [...] Intact General Assessment General Assessment Hearing: (mild [place]) Hand Dominance: Right Home Living Home Living Type of Home: House Lives With: Spouse Home Adaptive Equipment: Walker rolling, Cane (sc, gb, hhs) Home Layout: One level Home Access: Stairs to enter with rails (5) Bathroom Shower/Tub: Tub/shower unit Prior Level of Function Prior Function Level of [place]: Independent with ADLs and functional transfers, Independent [...] Eating meals?: None (Independent) Total Score OT [facility]: 21 Assessment/Plan OT Assessment OT Impairments: Decreased [...] Diagnosis Primary hypertension Acute congestive heart failure ([facility]) History of CVA (cerebrovascular accident) Type 2 diabetes mellitus, with long-term current use of insu (more content not included)... [facility] 05-10-2025 Note Daily Case Managemen t Update Barriers to Discharge et per Progress Note: Transfer from [facility] for elevated BNP et BLE Edema. CHF. TTE. HS Trop this am = 21. Cardiology Consulted; pending. PT OT SW ordered; pending. UPDATE @ 0900 Multidisciplinary Rounds completed with Dr. Mora. Diet: Physician Expected Discharge Date: 05/12/2025 Discharge Delays: PT Six Click Score: OT Six Click Score: PT Recommendations: OT Recommendations: New Consults: Consult Orders (From admission, onward) Start Ordered 05/10/25424 Inpatient consult to Cardiology Once Specialty: Cardiology Provider: (Not yet assigned) Question Answer Comment Consulting Group CARDIOLOGY TEAM Reason for Consult? Hypertensive urgency CHF Level of Consultation Consultation and Management 05/10/25 042 Ancillary Consults (From admission, onward) Start Ordered 05/10/25 040 Inpatient consult to Social Work Once Provider: (Not yet assigned) Question Answer Comment Select all services needed for the patient Other Other: Heart Failure 05/10/25 0411 05/10/25 040 Consult to Nutrition Services Once Provider: (Not yet assigned) Question: Reason for Consult? Answer: Heart Failure 05/10/25410 Therapy Orders (From admission, onward) Start Ordered 05/10/25410 PT eval and treat Until therapy completed Question: Reason for PT? Answer: weakness 05/10/2541005/10/25410 OT eval and treat Until therapy completed Question: Reason for OT? Answer: gait abnormality 05/10/25410 [facility] 05-10-2025 Note Per review of chart patient has diastolic heart failure had history of pericardial effusion as well we will optimize guideline directed medical therapy with limitation due to renal insufficiency obtain echocardiogram cycle troponins cardiology to see him [facility] 05-10-2025 Note Insulin blood sugar check diet [facility] 05-10-2025 Note Antilipemic agents diet [facility] 05-10-2025 Note On aspirin statin wi th deconditioning and gait abnormality with fall risk PT OT to see him [facility] 05-10-2025 Note Adjust antihypertens ella low-salt diet with renal insufficiency unable to start JAY or ARB [facility] 05-10-2025 Note CHADS2 DS vascular s core is 7 currently on Eliquis Chronic kidney disease stage IIIb avoid nephrotoxic meds hypovolemia nephrology consult [facility] 05-10-2025 Note Hospital Medicine History and Physical 05/10/2025 4:12 AM THE HOSPITALIST TEAM PREFERS TO USE [employer] CHAT FOR NON-URGENT COMMUNICATION 7AM-7PM. IF I DO NOT RESPOND WITHIN 20 MINUTES OR URGENT MATTERS, PLEASE CALL THROUGH THE PIPE INSULATOR. FROM 7PM-7AM, PLEASE PAGE [phone](COVR). Chief Complaint No chief complaint on file. History of Present Illness Nadir Turner is an 85 y.o. male admitted as a direct transfer from [facility] where he presented following outpatient labs done [...] PND orthopnea no dizziness lightheaded no syncope he has history of stroke in the past and history of diabetes chronic kidney disease pericardial effusion and history of atrial fibrillation Review of System and Physical Exam Temp: [36.5 ???C (97.7 ???F)] 36.5 ???C (97.7 ???F) Heart Rate: [88] 88 Resp: [17] 17 [...] pulses. Heart sounds: Normal heart sounds. Comments: [id number] s4 systolic murmur Pulmonary: Effort: Pulmonary effort [...] mellitus, with long-term current use of insulin ([facility]) Insulin blood sugar check diet Other hyperlipidemia Antilipemic agents diet Chronic atrial fibrillation ([facility]) CHADS2 DS vascular score is [...] this hospital stay by a member of [facility]. Past Medical History Medical History[1] Past Surgical History Surgical History[2] Social History Social History Socioeconomic History Marital status: Not on file Spouse name: Not on file Number of children: Not on file Years of education: Not on file Highest education level: Not on file Occupational History Not on file Tobacco Use Smoking status: Former Types: Cigarettes S (more content not included)... [facility] 05-08-2025 History of Present illness Narrative Associated [...] from re titration study Managed by Dr Jonh in [place] Associated Problem(s): Carotid stenosis, bilateral Plan redo US carotids 2026. Associated Problem(s): Polyneuropathy (Continue current regimen.) Images from the original note were not included. Outpatient Progress Note Prev Appt: Visit date not found No chief complaint on file. Appointment Note -- FU (U-[facility]) Patient is here today [...] titration study Managed by Dr John in [place] Carotid stenosis, bilateral Plan redo US carotids 2026. Polyneuropathy (Continue current regimen.) No orders of the defined types were placed in this encounter. Follow-Up - No follow-ups on file. History of Present Illness, Associated Treatments and Results - Dx (JOSIAH) Tx OFF BiPAP @ 31/10 AEs Hx JOSIAH - (Per Dr. John, [facility]). Failed Semeiology Circadian Noct oxim PSG _ ([place]) - _ PAPT ([place]) - AHI=8.1 @ 31/10 (max pressure) MSLT [...] UBOs Tx ASA AEs Hx Recent adm [place] for confusion. Now baseline. Images rev'd. No clear cognitive decline. Denies forgetting names, leaving tools/stove on, getting lost, etc. Onset Semeiology Imaging MR brain (02/2025, [place]) - rev'd with pt - no report sent - on my review, atrophy mod-sev, 8-10 UBOs, most tiny, 2 mod incl R fro & R splenium CC MRA head (02/2025, [place]) - no stenoses MRA neck (02/2025, [place]) - no stenoses, dom R vert US carotids (02/2025, [place]) - < 50% B by velocity, but mod plaque poss causing stenosis Testing Surgery Failed Dx L BASAL GANGLIA STROKE/WMD/ATROPHY Tx (Continue ASA, Xeralto ?, statin.) AEs Hx Onset [address] AMS and garbled speech Semeiology To [facility]. CT and MRI showed stroke ? Subacute. Eliquis changed to Xeralto. DC to [place] for Skilled therapy. Imaging CT Head (04/2025 [facility]) 8mm hypodensity in left caudate nucleus MRI Brain (04/2025 [facility]) Subacute left basal ganglia ischemia, mild WMD, moderate atrophy CTA H/N (04/2025 [facility]) 50% ICA stenosis B. Moderate M1 right MCA stenosis Testing Echo (04/2025 [facility]) EF 65-70%, Aortic sclerosis, [...] of 05/08/2025. [facility] ? [address] ? [place], [place] [address] ? ? fax Neurology ? Clinical Neurophysiology ? Epilepsy ? Sleep Disorders ? Clinical Informatics documented in this encounter [facility] 04-30-2025 Note [place] Cardiology - [facility] Subjective Nadir Beth is a 85 y.o. year old male patient being seen for follow up CVA. Patient was in [facility] for 4 days. Patient complains of HERNANDEZ and leg swelling, high blood sugars. Patient is at the [place] for rehab. Patient Active Problem List Diagnosis [...] diuretic therapy. He was admitted to the [facility] in August 2022 due to hyponatremia, hyperkalemia and acute kidney injury, leukocytosis secondary to COVID-19 causing dehydration. I saw him on 05/24/2023 and the office and he had significant evidence of volume overload by exam and echocardiogram. I intensified his diuretic regimen. He ended up getting admitted to the [facility] with acute heart failure exacerbation and underwent [...] On 02/14/2025 he was admitted to the [facility] with altered mental status. brain MRI showed multiple infarcts. He was seen by cardiology consult and Eliquis was changed to Xarelto. He then underwent a transesophageal echocardiogram that showed no evidence of intra cardiac thrombi. The aortic valve stenosis appeared to be severe. He was seen in the emergency room at the [facility] on 03/08/2025 with chest pain episode. He ruled out for myocardial infarction and was discharged. I last saw him on 03/12/2025 and decided to proceed with cardiac catheterization as part of his workup for aortic valve replacement. The procedure is scheduled for May 10, 2025. However in the interim he was admitted on 04/14/2025 to [facility] with apparent acute cerebrovascular accident. MRI showed possible small acute/subacute infarct. The clinical presentation was that of inability to speak. Relatively quickly. He was discharged back to rehab at the [facility] (more content not included)... [facility] 04-30-2025 Note Discharge Summary Admission and Discharge Information Admit Date/Time:04/14/2025 19:37 Admitting Physician - Layne VERDUGO DO Consulting Physician - [facility] Wound, XXXX Admitting Diagnoses: Anxiety, 04/18/2025 Discharge [...] at discharge. Patient was accepted to the [facility] which patient will transfer there [...] Discharge Disposition Discharge To, Anticipated II - Snf Unit Discharged to - Other: [facility] Discharge Diet Discharge Diet(s): Calorie Controlled- 1800 [...] Flomax, 0.4 m (more content not included)... [facility] Comment on above: Result [...] deep vein thrombosis (DVT) prophylaxis (Z79.899: Other halfway (current) drug therapy) Resume Xarelto 11. History [...] sclera clear E (more content not included)... [facility] Comment on above: Result [...] TEXT SOURCE: Indu Slaughter, Rivas Griggs M.D., [place] FINAL REPORTS Final Report [] Verified Date/Time: 04/21/2025 21:00 EDT No growth at 7 days. Performing Locations R1: This test was performed at: [facility], [address] [place] [address], [address] [place] [address], [phone] [address] Comment on above: Performed By: #### 1 [id number] #### [facility] [address] [place] [address] 04-22-2025 Note Microbiology PROCEDURE: Blood Culture Charcoal [R1] SOURCE: Blood BODY SITE: Hand R COLLECTED DATE/TIME: 04/14/2025 18:04 EDT RECEIVED DATE/TIME: 04/14/2025 18:41 EDT START DATE/TIME: 04/14/2025 18:41 EDT FREE TEXT SOURCE: Indu Slaughter, Rivas Griggs M.D., Astrit H FINAL REPORTS Final Report [] Verified Date/Time: 04/21/2025 21:00 EDT No growth at 7 days. Performing Locations R1: This test was performed at: [facility], [address] [place] [address], [address] [place] [address], [address] [place] [address] Comment on above: Performed By: #### 1 [id number] #### [facility] [address] [place] [address] 04-21-2025 Note Microbiology PROCEDURE: Blood Culture Charcoal [...] Locations R1: This test was performed at: [facility], [address] [place] [address], [id number], [facility] Comment on above: Performed By: #### 1 [id number] #### [facility] [address] [place] [address] 04-21-2025 Note Microbiology PROCEDURE: Blood Culture Charcoal [...] Locations R1: This test was performed at: [facility], [address] [place] [address], [id number] [place] [address], [facility] Comment on above: Performed By: #### 1 [id number] #### [facility] [address] [place] [address] 04-18-2025 Note GetWell Understands Education Yes GetWell Education Video Statins: Should You Take Them to Lower Your Risk? GetWell Learning Participants Patient [facility] 04-18-2025 Note GetWell Education Vi maria guadalupe After a Stroke: Your Self-Care Plan GetWell Learning Participants Patient GetWell Understands Education Yes [facility] 04-18-2025 Note GetWell Understands Education Yes GetWell Education Video After a Stroke: Taking an Antiplatelet GetWell Learning Participants Patient [facility] 04-18-2025 Note GetWell Education Vi maria guadalupe After a Stroke: Taking an Antiplatelet GetWell Learning Participants Patient GetWell Understands Education Yes [facility] 04-18-2025 Note GetWell Understands Education Yes GetWell Education Video Your Hospital Stay: Moving to Another Care Facility GetWell Learning Participants Patient [facility] 04-18-2025 Note GetWell Understands Education GetWell Education Video Stroke: Fast facts GetWell Learning Participants [facility] 04-18-2025 Note GetWell Understands Education GetWell Education Video Stroke: Fast facts GetWell Learning Participants [facility] 04-18-2025 Note GetWell Understands Education Yes GetWell Education Video After a Hospital Stay: Managing Appointments GetWell Learning Participants Patient [facility] 04-18-2025 Note GetWell Understands Education Yes GetWell Education Video Preventing Falls in the Hospital GetWell Learning Participants Patient [facility] 04-18-2025 Note GetWell Understands Education Yes GetWell Education Video Avoiding Infections in the Hospital GetWell Learning Participants Patient [facility] 04-18-2025 Note GetWell Learning Par ticipants Patient GetWell Understands Education Yes GetWell Education Video What Is a Stroke? [facility] 04-17-2025 Evaluation + Plan note Extrac fernando [...] today patient is pending cardiac cath at [facility] [[email or web address]] towards the end of this month for [...] deep vein thrombosis (DVT) prophylaxis (Z79.899: Other halfway (current) drug therapy) Resume Xarelto 11. History [...] deep vein thrombosis (DVT) prophylaxis (Z79.899: Other halfway (current) drug therapy) 11. History of DVT in adulthood (Z86.718: Personal history of other venous thrombosis and embolism) Chronic constipation with overflow (K59.09: Other constipation) Extracted from: Title:Progress/SOAP Note Author:Hanna GUSTAFSON, [facility] Date:04/16/25 1. CVA (cerebrovascular acci dent) [...] deep vein thrombosis (DVT) prophylaxis (Z79.899: Other halfway (current) drug therapy) 11. History of DVT in adulthood (Z86.718: Personal history of other venous thrombosis and embolism) Chronic constipation with overflow (K59.09: Other constipation) Extracted from: Title:APSO Note Author:PEPE PINTOELENITARoro Date:04/16/25 PLAN: 1. CVA (cerebrovascular accident) (I63.9: [...] deep vein thrombosis (DVT) prophylaxis (Z79.899: Other long lines operator (current) drug therapy) Resume Xarelto 11. History of DVT in adulthood (Z86.718: Personal history of other venous thrombosis and embolism) Xarelto Extracted from: Title:APSO Note- Neurology Author:Tonny OTERO, Ascencion Marroquin Date:04/16/25 ASSESSMENT: His presentation is very concerning [...] deep vein thrombosis (DVT) prophylaxis (Z79.899: Other halfway (current) drug therapy) 11. History of DVT [...] deep vein thrombosis (DVT) prophylaxis (Z79.899: Other long lines operator (current) drug therapy) 10. History of DVT in adulthood (Z86.718: Personal history of other venous thrombosis and embolism) Elevated troponin likely due to mismatch demand supply. Continue current management. Continue to trend. Obtain 2D echo. Treat acute issues. Aggressive risk factor control. Thank you for the consult discussed with the patient family at bedside. Extracted from: Title:Consult Note-Neurology Author:Riaz OTERO, Randal siegel M Date:04/15/25 ASSESSMENT: His presentation is very concerning [...] deep vein thrombosis (DVT) prophylaxis (Z79.899: Other halfway (current) drug therapy) Other obstructive and reflux uropathy (N13.8: Other obstructive and reflux uropathy) Pleural effusion (J90: Pleural effusion, not elsewhere classified) Extracted from: Title:Admission H & P Author:Layne VERDUGO DO Date:04/14/25 1. CVA (cerebrovascular acci dent) (I63.9: Cerebral infarction, unspecified) Interventional neurology was consulted from the emergency department at [facility]. They recommended patient started on a [...] deep vein thrombosis (DVT) prophylaxis (Z79.899: Other halfway (current) drug therapy) SCD, heparin Orders: albuterol, [...] erythema or exudate. - POA. will consult [facility] care. bacitracin bid. Extracted from: Title:ED Note Author:Indu [...] Date:06/11/2025 11:40:00 AM Scheduled Provider:LU OLMEDO PA-C Location:[facility] Appointment Type:URO Office Visit [facility] 06-03-2025 NoteProgress Note-Physician Assessment/Plan PLAN: 1. [...] today patient is pending cardiac cath at [facility] [[email or web address]] towards the end of this month for [...] deep vein thrombosis (DVT) prophylaxis (Z79.899: Other halfway (current) drug therapy) Resume Xarelto 11. History [...] mental status Lab Results WBC: 9.9 E9/L (06/03/25 06:01:00) RBC: 4.1 E12/L Low (04/17/25 06:01:00) [...] Lymph Auto: 7.1 % Low (04/17/25 06:01:00) [place] Auto: 13.7 % (04/17/25 06:01:00) Eos Auto: 0.6 % (04/17/25 06:01:00) Basophil Auto: 0.6 % (04/17/25 06:01:00) Neutro Absolute: 7.7 E9/L High (04/17/25 06:01:00) Lymph Absolute: 0.7 E9/L Low (04/17/25 06:01:00) [place] Absolute: 1.4 E9/L High (06 (more content not included)...[facility]Result Comment: Electronically Signed By: Anai URIARTE\.br\Date and Time Signed: 04/17/25 08:59 EDT\.br\Electronically Co-Signed By: Marc Fajardo DO\.br\Date and Time Co- Signed: 04/17/25 13:29 [id number] NoteProgress Note-Physician Assessment/Plan ASSESSMENT: Acute to subacute [...] deep vein thrombosis (DVT) prophylaxis (Z79.899: Other long lines operator (current) drug therapy) 11. History of DVT [...] both correctly = 0 Open and close eyes/telephone service representative release hand: Obeys both correctly = 0 [...] 237 E9/L (04/17/25 06:01:00) MPV: 9.1 fL (04/17/ (more content not included)...[facility] Comment on above:Result Comment: Electronically Signed By: Pati Quinones RN\.br\Date and Time Signed: 04/17/25 09:21 EDT\.br\Electronically Co- Signed By: Ruy Molina DO\.br\Date and Time Co-Signed: 04/17/25 10:46 EDT 04-16-2025 NoteProgress Note-Physician Subjective Patient off floor for MRI. I did discuss the echo findings with the patient family. 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 Patient dormitory supervisor showed be able to get access to [...] Lymph Auto: 4.6 % Low (04/16/25 06:05:00) [place] Auto: 10.8 % (04/16/25 06:05:00) Eos Auto: 0.2 % (04/16/25 06:05:00) Basophil Auto: 0.1 % (04/16/25 06:05:00) Neutro Absolute: 12.3 E9/L High (04/16/25 06:05:00) Lymph Absolute: 0.7 E9/L Low (04/16/25 06:05:00) [place] Absolute: 1.6 E9/L High (04/16/25 06:05:00) Eos [...] mg/dL High (04/16/25 11:23:00) POC Device SN: [id number] (04/16/25 11:23:00) POC User ID: [id number] (04/16/25 11:23:00) POC Username: WICHO NORRIS (04/16/25 [...] deep vein thrombosis (DVT) prophylaxis (Z79.899: Other long lines operator (current) drug therapy) 11. History of DVT [...] loratadine 10 mg Tab, (more content not included)...[facility] Comment on above:Result Comment: Electronically Signed By: Hanna GUSTAFSON, Rebeca\.br\Date and Time Signed: 04/16/25 12:15 [id number] NoteProgress Note-Physician Assessment/Plan PLAN: 1. CVA (cerebrovascular [...] deep vein thrombosis (DVT) prophylaxis (Z79.899: Other halfway (current) drug therapy) Resume Xarelto 11. History [...] Lymph Auto: 4.6 % Low (04/16/25 06:05:00) [place] Auto: 10.8 % (04/16/25 06:05:00) Eos Auto: 0.2 % (04/16/25 06:05:00) Basophil Auto: 0.1 % (04/16/25 06:05:00) Neutro Absolute: 12.3 E9/L High (04/16/25 06:05:00) Lymph Absolute: 0.7 E9/L Low (04/16/25 06:05:00) [place] Absolute: 1.6 E9/L High (04/16/25 06:05:00) Eos Absolute: 0 E9/L (04/16/25 06:05:00) Basophil Absolute: 0 E9/L (04/16/25 06:05:00) Glucose Lvl: 212 mg/dL High (04/16/25 06:05:00) BUN: 33 mg/dL High (04/16/25 06:05:00) Creatinine: 1.7 mg/dL High (04/16/25 06:05:00) eGFR: 39 mL/min/1.73 (more content not included)...[facility] Comment on above:Result Comment: Electronically Signed By: Anai URIARTE\.br\Date and Time Signed: 04/16/25 07:41 EDT\.br\Electronically Co- Signed By: Marc Fajardo DO\.br\Date and Time Co-Signed: 04/16/25 11:48 EDT 04-16-2025 [...] be managed by a specialist called an employment law specialist. Type 2 diabetes may be treated by [...] meet with a certified diabetes care and resource room special education teacher? What diabetes medicines do I need, and when should I take them? What equipment will I need to manage my diabetes at home? How often do I need to check my blood glucose? Where can I find a support group for people with diabetes? What number can I call if I have questions? When is my next appointment? General instructions Take plbd-ewc-cqfttwr and prescription medicines only as told by your health care provider. Keep all follow-up visits. This is important. Where to find more information For help and guidance and for more information about diabetes, please visit: [place] [employer] (ADA): www.diabetes.org [place] [employer] Diabetes Care and Education Specialists [...] provider. Document Revised: 01/26/2022 Document Reviewed: 01/26/2022 Education Everytime Patient Education 2023 [employer] 04/16/2025 09:29:43 Atrial Fibrillation Atrial Fibrillation Atrial [...] electrical signals of the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 the [facility] in August 2022 due to hyponatremia, hyperkalemia and acute kidney injury, leukocytosis secondary to COVID-19 causing dehydration. I saw him on 05/24/2023 and the office and he had significant evidence of volume overload by exam and echocardiogram. I intensified his diuretic regimen. He ended up getting admitted to the [facility] with acute heart failure exacerbation and underwent [...] and 2+ o (more content not included)... [facility]11-30-2023 Hospital Discharge instructions Patient Education 10/14/2023 15:05:48 [...] as fried or sweet foods. These include latvian fries, hamburgers, cookies, candies, and soda. Drink enough fluid to keep your urine pale yellow. General instructions Exercise regularly or as told by your health care provider. Try to do 150 minutes of moderate exercise each week. Use the bathroom when you have the urge to go. Do not hold it in. Take qlkr-suw-phxekjw and prescription medicines only as told by [...] to keep your urine pale yellow. Take nthy-chd-qxcfchn and prescription medicines only as told by your health care provider. This includes any fiber supplements. This information is not intended to replace advice given to you by your health care provider. Make sure you discuss any questions you have with your health care provider. Document Revised: 09/18/2020 Document Reviewed: 09/18/2020 Education Everytime Patient Education 2022 [employer] Follow Up Care 10/01/2023 12:57:46 With:Nereyda Gomez CNP Address: When:1 month [facility] 11-17-2023 Hospital Discharge instructions [...] Bulgur wheat. Millet. Quinoa. Bran muffins. Popcorn. [place] wafer crackers. Meats and other proteins [place] beans, kidney beans, and mendez beans. Soybeans. [...] Cream cheese. Sour cream. Fats and oils [place]. Beverages Soft drinks. Other foods Cakes and [...] provider. Document Revised: 03/06/2021 Document Reviewed: 03/06/2021 Education Everytime Patient Education 2022 [employer] Follow Up Care 09/20/2023 08:43:45 With:Nereyda Gomez CNP Address:Unknown When: Unknown [facility] 11-17-2023 Evaluation + Plan note Future Scheduled Tests Laboratory* CBC w/ Auto Diff 10/01/23 * Comprehensive Metabolic Panel 10/01/23 * Thyroid Stimulating Hormone 10/01/23 [facility] 07-27-2023 Hospital Discharge instructions Patient Education [...] hard liquor (44 mL). General instructions Take zhbc-bsd-rgtcuzx and prescription medicines only as told by [...] provider. Document Revised: 02/19/2021 Document Reviewed: 02/19/2021 Education Everytime Patient Education 2022 [employer] Follow Up Care 04/13/2023 14:39:27 With:Nereyda Gomez CNP Address: When:3 months [facility] 05-30-2023 Hospital Discharge instructions [...] including vitamins, herbs, eye drops, creams, and biwq-ncb-goeiepq medicines. Any problems you or family members [...] provider tells you to take them. Taking dazb-hvv-azztqrw medicines, vitamins, herbs, and supplements. General instructions [...] provider. Document Revised: 10/26/2022 Document Reviewed: 06/24/2022 Education Everytime Patient Education 2022 [employer] Follow Up Care 04/09/2023 11:27:16 With:Nereyda Gomez CNP Address: When:1 month [facility] 09-03-2022 NoteEXAM: US KARI [...] Electronically authenticated by: PREETI ROBERTS Date: 2022-07-18 09:05[facility]07-26-2022 Hospital Discharge instructions Patient Education [...] per serving. Talk with a diet and livestock nutritionist (dietitian) if you have questions about [...] Bulgur wheat. Millet. Quinoa. Bran muffins. Popcorn. [place] wafer crackers. Meats and other proteins [place], kidney, and mendez beans. Soybeans. Split peas. [...] Cream cheese. Sour cream. Fats and oils [place]. Beverages Soft drinks. Other foods Cakes and [...] 11/01/2006 Document Revised: 09/05/2018 Document Reviewed: 09/05/2018 Education Everytime Patient Education 2020 [employer] 06/09/2022 10:13:34 Hemorrhoids Hemorrhoids Hemorrhoids are swollen [...] 3 times a day. General instructions Take csyk-zhm-bnydsqi and prescription medicines only as told by [...] 10/29/2001 Document Revised: 03/29/2020 Document Reviewed: 03/23/2019 Education Everytime Patient Education 2020 [employer] 06/09/2022 10:13:31 Diverticulosis Diverticulosis Diverticulosis is a [...] overweight. Not getting enough exercise. Smoking. Taking vnlp-yyi-hasvhfs pain medicines, like aspirin and ibuprofen. Having [...] health care provider or your diet and livestock nutritionist (dietitian). ?Take a fiber supplement or probiotic, if your health care provider approves. Take dpgg-dvj-fbfgnud and prescription medicines only as told by [...] 07/29/2005 Document Revised: 10/14/2018 Document Reviewed: 09/20/2017 Education Everytime Patient Education 2020 [employer] 06/09/2022 10:13:30 Colon Polyps Colon Polyps Polyps [...] 07/28/2005 Document Revised: 02/16/2019 Document Reviewed: 02/16/2019 Education Everytime Patient Education 2020 [employer] Follow Up Care 05/13/2022 14:18:17 With:Nereyda Gomez CNP Address: When:1 year only if needed [facility] 06-27-2022 Evaluation + Plan [...] heart and lungs, allergic reactions, and .. [facility]06[facility]22 Hospital Discharge instructions Patient Education 05/11/2022 [...] 07/28/2005 Document Revised: 02/16/2019 Document Reviewed: 02/16/2019 Education Everytime Patient Education 2020 [employer] 05/11/2022 11:13:39 Diverticulosis MAGR (CUSTOM) Diverticulosis Many [...] unsweetened, w/added ascorbic acid [address] [place] [employer] 1 cup 0.7 Vegetables Cooked Green beans 1 cup 4.0 Carrots 1/2 cup sliced 2.3 Peas 1 cup 8.8 Potato (baked, with skin) 1 medium potato 3.8 Raw [place] (with peel) 1 cucumber 1.5 Lettuce 1 [...] 8.7 Peanuts 1/2 cup 7.9 Chart from [facility] 2013. SEEK IMMEDIATE MEDICAL CARE IF: [...] Nutrient Database for Standard Reference. Available at http://www.[employer].usda.gov/fnic/foodcomp/search/. Information adapted from: [facility] Patient Information 2009 [employer]. ZOCKO 2012 http://www.Backlift/contents/ogegwkyuzqea-ptkneym-oafwrr-the-basics Follow Up Care 03/31/2022 10:27:32 With:Napoleon NOVA Address: [facility] [address] [place] [address] [facility] (1) When: Unknown Comments:office will call for follow up [facility]05-17-2022 Hospital Discharge instructions Patient Education 03/31/2022 [...] including vitamins, herbs, eye drops, creams, and [id number] medicines. Any problems you or family members [...] 10/29/2001 Document Revised: 08/24/2018 Document Reviewed: 01/12/2017 Education Everytime Patient Education 2020 [employer] Follow Up Care 03/23/2022 12:11:50 With:Nereyda Gomez CNP Address: When:1 month [facility] mPorticoaluation + Plan note Future Appointments Appointment Date:05/25/2022 08:45:00 AM Scheduled Provider: Location:[facility] Appointment Type:Surgery FT [facility] Evaluation + Plan note Future Appointments Appointment Date:06/10/2023 10:40:00 AM Scheduled Provider:Nereyda Gomez CNP Location:[facility] Follow Up Future Scheduled Tests Laboratory* Fecal WBC Lactoferrin 04/13/23 * Giardia lamblia, Direct Detection EIA 04/13/23 * O & P Exam, Routine 04/13/23 * Clostridium Difficile PCR 04/13/23 * Enteric Panel by PCR 04/13/23 [facility] Evaluation + Plan note Future Appointments Appointment Date:06/10/2023 10:40:00 AM Scheduled Provider:Nereyda Gomez CNP Location:[facility] Type:[facility] Follow Up Diagnostic Tests Pending * O & P Exam, Routine 04/15/23 * Giardia lamblia, Direct Detection EIA [facility]15/23 [facility] App[facility]ments Appointment Date:09/13/2023 10:40:00 AM Scheduled Provider:Nereyda Gomez CNP Location:[facility] Appointment Type:BAD Follow Up [facility] Evaluation + Plan note Future Appointments Appointment Date:10/14/2023 02:20:00 PM Scheduled Provider:Nereyda Gomez CNP Location:[facility] Appointment Type:BAD Follow Up Future Scheduled Tests Laboratory* CBC w/ Auto Diff 10/01/23 * Comprehensive Metabolic Panel 10/01/23 * Thyroid Stimulating Hormone 10/01/23 [facility] Evaluation + Plan note Future Appointments Appointment Date:12/09/2023 02:00:00 PM Scheduled Provider:Nereyda Gomez CNP Location:[facility] Appointment Type:[facility] Follow Up Future Scheduled Tests Laboratory* CBC w/ Auto Diff 10/01/23 * Comprehensive Metabolic Panel 10/01/23 * Thyroid Stimulating Hormone 10/01/23 [facility] Evaluation + Plan note Future Appointments Appointment Date:10/26/2024 09:30:00 AM Scheduled Provider: Location:[facility] Appointment Type:URO Nurse Visit Appointment Date:12/04/2024 08:40:00 AM Scheduled Provider:MARQUIS LOUISE MD Location:[facility] Appointment Type:URO Office Visit Future Scheduled Tests Laboratory* CBC w/ Auto Diff 10/01/23 * Comprehensive Metabolic Panel 10/01/23 * Thyroid Stimulating Hormone 10/01/23 [facility] Evaluation + Plan note Future Appointments Appointment Date:11/06/2024 09:00:00 AM Scheduled Provider: Location:[facility] Appointment Type:URO Nurse Visit Appointment Date:12/04/2024 08:40:00 AM Scheduled Provider:MARQUIS LOUISE MD Location:[facility] Appointment Type:URO Office Visit Future Scheduled Tests Laboratory* CBC w/ Auto Diff 10/01/23 * Comprehensive Metabolic Panel 10/01/23 * Thyroid Stimulating Hormone 10/01/23 [facility] evaluation + Plan note Future Appointments Appointment Date:12/04/2024 08:40:00 AM Scheduled Provider:MARQUIS LOUISE MD Location:[facility] Appointment Type:URO Office Visit Future Scheduled Tests Laboratory* CBC w/ Auto Diff 10/01/23 * Comprehensive Metabolic Panel 10/01/23 * Thyroid Stimulating Hormone 10/01/23 [facility] evaluation + Plan note Future Appointments Appointment Date:06/11/2025 11:40:00 AM Scheduled Provider:LU OLMEDO PA-C Location:[facility] Appointment Type:URO Office Visit Future Scheduled Tests Laboratory* CBC w/ Auto Diff 10/01/23 * Comprehensive Metabolic Panel 10/01/23 * Thyroid Stimulating Hormone 10/01/23 [facility] Evaluation + Plan note Future Appointments Appointment Date:03/04/2026 09:00:00 AM Scheduled Provider:MARQUIS LOUISE MD Location:[facility] Appointment Type:URO Office Visit [facility] evaluation note* Diagnosis Melanocytic nevus of [...] underlying condition with diabetic polyneuropathy, unspecified whether long lines operator insulin use (CMS/HCC) Pain due to onychomycosis of toenails of both feet [facility] Diagnosis Xerosis cutis- Primary Other specified disease of sebaceous glands Verruca plantaris Plantar wart Foot pain, right Pain in soft tissues of limb Diabetes mellitus due to underlying condition with diabetic polyneuropathy, unspecified whether halfway insulin use (CMS/HCC) Onychomycosis Dermatophytosis of nail [...] underlying condition with diabetic polyneuropathy, unspecified whether halfway insulin use (CMS/HCC) Pain due to onychomycosis [...] underlying condition with diabetic polyneuropathy, unspecified whether long lines operator insulin use (CMS/HCC) Pain due to [...] underlying condition with diabetic polyneuropathy, unspecified whether halfway insulin use ([facility]) Pain due to onychomycosis of toenails of [...] idiopathic peripheral neuropathy documented in this encounter [facility] HealthcareHistory of Present illness Narrative* Blaise Chicas [...] Narrative No data available for this section [facility] Hospital Discharge instructions No data available for this section [facility] No data available for this section [facility] Summary Purpose Family History No Family [...] section and content) DATE CREATED AUTHOR 02/09/2019 [facility] DATE CREATED AUTHOR AUTHOR'S ORGANIZ ATION 03/28/2023 [facility] DATE CREATED AUTHOR AUTHOR'S ORGANIZ ATION 04/15/2025 [facility]ero Nando [facility] DATE CREATED AUTHOR AUTHOR'S ORGANIZ ATION 04/16/2025 Romero Wilbarger [facility] DATE CREATED AUTHOR AUTHOR'S ORGANIZ ATION 04/17/2025 Romero Wilbarger [facility] DATE CREATED AUTHOR AUTHOR'S ORGANIZ ATION 04/18/2025 [facility] DATE CREATED AUTHOR AUTHOR'S ORGANIZ ATION 04/19/2025 Romero Nando [facility] DATE CREATED AUTHOR AUTHOR'S ORGANIZ ATION 04/21/2025 [facility] DATE CREATED AUTHOR AUTHOR'S ORGANIZ ATION 04/22/2025 Romero Nando [facility] DATE CREATED AUTHOR AUTHOR'S ORGANIZ ATION 05/09/[address] [facility] DATE CREATED AUTHOR AUTHOR'S ORGANIZ ATION 05/23/2025 [facility] DATE CREATED AUTHOR AUTHOR'S ORGANIZ ATION 05/31/2025 [facility] DATE CREATED AUTHOR AUTHOR'S ORGANIZ ATION 06/12/2025 Romero Wilbarger [facility] DATE CREATED AUTHOR AUTHOR'S ORGANIZ ATION 06/14/2025 [facility] Care Team (unrecognized sect ion and content) Denture Packer Relationship Specialty Start Date End Date Van Youssef MD [address] [place] [address] PCP - General Family Medicine 12/02/23 Denture Packer Relationship Specialty Start Date End Date Van Youssef MD [address] [place] [address] PCP - General Family Medicine 12/02/23 Denture Packer Relationship Specialty Start Date End Date Van Youssef MD [address] [place], [facility] PCP - General Family Medicine 12/02/23 Denture Packer Relationship Specialty Start Date End Date Van Youssef MD [address], [facility] PCP - General Family Medicine 12/02/23 Denture Packer Relationship Specialty Start Date End Date Van Youssef MD [address], [facility] PCP - General Family Medicine 12/02/23 Denture Packer Relationship Specialty Start Date End Date Van Youssef MD [address] [place], [facility] PCP - General Family Medicine 12/02/23 Denture Packer Relationship Specialty Start Date End Date Van Youssef MD [address], [facility] PCP - General Family Medicine 12/02/23 Denture Packer Relationship Specialty Start Date End Date Van Youssef MD [address] [place] [address] PCP - General Family Medicine 12/02/23 Denture Packer Relationship Specialty Start Date End Date Van Youssef MD [address] [place] [address] PCP - General Family Medicine 12/02/23 Denture Packer Relationship Specialty Start Date End Date Van Youssef MD [address] [place] [address] PCP - General Family Medicine 12/02/23 Denture Packer Relationship Specialty Start Date End Date Van Youssef MD [address] [place] [address] PCP - General Family Medicine 12/02/23 Denture Packer Relationship Specialty Start Date End Date Van Youssef MD PCP - General Family Medicine 12/02/23 Denture Packer Relationship Specialty Start Date End Date Van Youssef MD [address] [place] [address] PCP - General Family Medicine 12/02/23 Denture Packer Relationship Specialty Start Date End Date Van Youssef MD [address] [place] [address] PCP - General Family Medicine 12/02/23 Denture Packer Relationship Specialty Start Date End Date Van Youssef MD [address] [place] [address] PCP - General Family Medicine 12/02/23 Denture Packer Relationship Specialty Start Date End Date Van Youssef MD [address] [place] [address] PCP - General Family Medicine 12/02/23 Reason [...] BE BASED ON THE PRIMARY CLINICAL RECORDS. [employer] provides no warranty or guarantee of the accuracy or completeness of information in this document.
--- NOTE | 2025-06-14 09:00 | CA_ITS ---
Patient Name: NADIR HEREDIA MR#: [id number] : 1940 Exam Date: 06/14/2025 Ordering Doctor: DR CLARIBEL PUGA M.D. ECHOCARDIOGRAM REPORT PROCEDURE: CA ECHO DOPPLER COMPLETE INDICATIONS: Mitral valve and Aortic valve stenosis, S/P TAVR, congestive heart failure, hypertension, diabetes COMPARISON: None. DESCRIPTION: COMPLETE ECHOCARDIOGRAM Real-time transthoracic echocardiography with 2D, M-mode, spectral and color flow Doppler performed. QUALITY: Technical quality was good. LEFT VENTRICLE: Normal chamber size. Moderate concentric left ventricular hypertrophy. LV EF: Global left ventricular systolic function appears normal; visually estimated ejection fraction is 55%. Abnormal septal motion may be related to underlying paced rhythm. DIASTOLIC: Not adequately assessed due to heart rhythm. ATRIAL SEPTUM: Visually appears intact. LEFT ATRIUM: Severe dilatation. RIGHT ATRIUM: Severe dilatation. RIGHT VENTRICLE: Moderate dilation. Reduced systolic function. Pacer wire present. TRICUSPID VALVE: Normal mobility and thickness. Moderate regurgitation. Doppler studies reveal severely (>60) elevated right-sided pressures. RVSP 76 mmHg MITRAL VALVE: Normal mobility and thickness. Mild mitral annular calcification. Trivial mitral regurgitation. AORTIC VALVE: TAVR (transcatheter aortic valve replacement) appears well seated in the aortic position with normal Doppler flow. No aortic regurgitation. AORTIC ROOT: Normal diameter and appearance. PULMONIC VALVE: Normal thickness and mobility. No stenosis. Mild to moderate regurgitation. PERICARDIUM: Small to moderate circumferential pericardial effusion. Echocardiographic appearance of the anterior effusion suggests a clotted fluid. A pleural effusion is seen. IVC: IVC is dilated (2.6 cm), does not collapse. CONCLUSION: 1. Global left ventricular systolic function is normal; visually estimated ejection fraction is 55% 2. Moderate left ventricular hypertrophy 3. Moderate right ventricular dilation with reduced systolic function 4. Severe biatrial dilatation 5. Moderate tricuspid regurgitation 6. Severely elevated right ventricular systolic pressure; RVSP 76 mmHg 7. Transcatheter aortic valve implant is seen; normal Doppler flows with no significant paravalvular regurgitation 8. Mild to moderate pulmonary regurgitation 9. A small to moderate circumferential pericardial effusion is seen with an echocardiographic appearance of fibrinous or clotted fluid anteriorly 10. A pleural effusion is seen Adult Echocardiography Procedure Report Left Ventricle LVEDD (3.7 - 5.6 cm): 4.46 cm LVESD (2.2 - 4.0 cm): 3.45 cm LVIVS thickness (0.6 - 1.2 cm): 1.47 cm LVPW thickness (0.5 - 1.0 cm): 1.32 cm LVOT Max Gradient: 1.99 mm[Hg], 2.47 mm[Hg] LVOT Area (cm2): 0.75 m/s Peak Velocity (LVOT): 0.71 m/s, 0.79 m/s Mean Velocity (LVOT): 0.50 m/s LVOT Diameter 2.38 cm Left Ventricular Ejection Fraction: 46.00 % Left Atrium LA Volume Index (2D A2C): 71.63 ml/m2 Left Atrium Systolic Dimension: 6.72 cm Mitral Valve Mitral Valve E-Wave Peak Velocity: 0.93 m/s Right Ventricle Aorta AO Root Diam: 3.31 cm Aortic Valve AoV Area (Peak Kyle): 3.39 cm2, 3.43 cm2, 3.36 cm2 AoV Area (VTI): 3.18 cm2, 3.08 cm2, 3.28 cm2 Peak Velocity(Antegrade Flow): 0.91 m/s, 1.04 m/s Peak Gradient(Antegrade Flow): 3.34 mm[Hg], 4.31 mm[Hg] Mean Velocity(Antegrade Flow): 0.59 m/s, 0.69 m/s Mean Gradient(Antegrade Flow): 1.66 mm[Hg], 2.20 mm[Hg] Velocity Time Integral: 21.64 cm, 25.09 cm Tricuspid Valve Peak Velocity (Regurgitant Flow): 3.91 m/s, 3.87 m/s Pulmonic Valve Peak Velocity: 1.02 m/s Peak Gradient: 4.20 mm[Hg], 4.11 mm[Hg] Right Atrium Right Atrium Systolic Pressure: 186.18 ml, 186.18 ml Dictated by: Rohini Traylor M.D. on 06/14/2025 at 13:02 Approved by: Rohini Traylor M.D. on 06/14/2025 at 13:12
--- OUTSIDE RECORDS SUMMARY | 2025-06-15 23:35 | XMS_ITS | CCD ---
Author Organization [facility] CliniSyme Care Team Providers Care 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 Name Role Phone PHYSICIAN, DEFAULT Admitting Unavailable PHYSICIAN, DEFAULT Attending Unavailable VAN YOUSSEF Primary Care Unavailable Van Youssef Primary Care Physician [phone] HOY ., DR ARAUJO Primary Care Unavailable HOY ., DR ARAUJO Consulting Unavailable HOY ., DR ARAUJO Attending Unavailable HOY ., DR ARAUJO Admitting Unavailable ZIEBER, DR CLOVER Zimmer Consulting Unavailable MI'KMAQ, DR CRAEMR Consulting Unavailable HOY ., DR ARAUJO Primary Care Unavailable MI'KMAQ, DR CRAMER Attending Unavailable MI'KMAQ, DR CRAMER Admitting Unavailable MI'KMAQ, DR CRAMER Consulting Unavailable HOY ., DR ARAUJO Primary Care Unavailable MI'KMAQ, DR CRAMER Attending Unavailable MI'KMAQ, DR CRAMER Admitting Unavailable HOY ., DR ARAUJO Consulting Unavailable HOY ., DR ARAUJO Primary Care Unavailable HOY ., DR ARAUJO Attending Unavailable HOY ., DR ARAUJO Admitting Unavailable MI'KMAQ, DR CRAMER Consulting Unavailable HOY ., DR ARAUJO Primary Care Unavailable MI'KMAQ, DR CRAMER Attending Unavailable MI'KMAQ, DR CRAMER Admitting Unavailable HOY ., DR [...] Unavailable Van Youssef MD Primary Care Provider [phone] Van Youssef MD Primary Care Provider [phone] Van Youssef MD Primary Care Provider [phone] DO KARTIK Ronobir R Admitting Unavailabl e DO KARTIK Ronobir R Attending Unavailthea e Aaron, Clover Consulting Unavailable MD Clover Walker Consulting Unavailable Copan, Clover Consulting Unavailable Copan, Clover Consulting Unavailable Copan, Clover Consulting Unavailable Copan, Clover Consulting Unavailable Copan, Clover Consulting Unavailable Copan, Clover Consulting Unavailable Copan, Clover Consulting Unavailable [facility] Wound, XXXX Consulting Unavailable [facility] Cardio, XXXX Consulting Unavailable Hanna, Mahmoud Consulting Unavailable MD Rebeca Ferreira Consulting Unavailable Othman, Mahmoud Consulting Unavailable KARTIK, Ronobir R Admitting Unavailable KARTIK Ronobir R Attending Unavailable [facility] Wound, XXXX Consulting Unavailable HOY, [...] Unavailable SANAULLAH, EFRAIN Referring Unavailable DE SOUZA, NDERA Referring Unavailable DE SOUZA, NEDRA Referring Unavailable DE SOUZA, NEDRA Referring Unavailable DE SOUZA, NEDRA Referring Unavailable ABBY, HANI Referring Unavailable HUGHES, AISSATOU Referring Unavailable TADEO, JADEN Referring Unavailable MOUKARBEL, CLARIBEL Admitting Unavailable DEIRDRE, NIKOLAS Attending Unavailable ASSALY, GARCÍA Referring Unavailable HUGHES, AISSATOU Referring Unavailable MOUKARBEL, CLARIBEL Referring Unavailable ERIC, NICOLE Referring Unavailable Marc Fajardo Attending Unavailable DO Layne VERDUGO Admitting Unavailabl e NKANSAH-AMANKRA, MARQUIS Attending Unavail able NKANSAH-AMANKRA, MARQUIS Attending Unavail able NKANSAH-AMANKRA, MARQUIS Attending Unavail able NKANSAH-AMANKRA, MARQUIS Referring Unavail able NKANSAH-AMANKRA, MARQUIS Attending Unavail able NKANSAH-AMANKRA, MARQUIS Attending Unavail able NKANSAH-AMANKRA, MARQUIS Referring Unavail able SINGHMejia Attending Unavailable SINGH, Mejia R Referring Unavailable NKANSAH-AMANKRA, MARQUIS Attending Unavail able SINGH, Mejia Zimmer Attending Unavailable LU OLMEDO Attending Unavailable NKANSAH-AMANKRA, MARQUIS Referring Unavail able NKANSAH-AMANKRA, MARQUIS Attending Unavail able NKANSAH-AMANKRA, MARQUIS Attending Unavail able NKANSAH-AMANKRA, MARQUIS Referring Unavail able NKANSAH-AMANKRA, MARQUIS Admitting Unavail able NKANSAH-AMANKRA, MARQUIS Attending Unavail able NKANSAH-AMANKRA, MARQUIS Referring Unavail able NKANSAH-AMANKRA, MARQUIS Admitting Unavail able Rivas Griggs Attending Unavailable MOUKARBEL, CLARIBEL Attending Unavailable LAURIE, RUY Attending Unavailable MOUKARBEL, CLARIBEL Attending Unavailable MOUKARBELCLARIBEL Referring Unavailable AMY, JEFF Attending Unavailable MI'KMAQ, RUTHIE Attending Unavailable MOUKARBEL, CLARIBEL Attending Unavailable Allergies Allergy Classification Reported Allergen(s) Allergy Type Date of Onset Reaction(s) Facility (20 sources) Aminolevulinic Acid; Translations: [aminolevulinic acid] Drug Allergy 11-04-[address] [facility] Repository (1 source) NITRO PATCH; Translations: [NITRO PATCH] Propensity to adverse reactions (disorder) 03-18-[address] [facility] Repository (20 sources) Contrast media; Translations: [Contrast Dye] Drug allergy Unknown (qualifier value) [facility] (20 sources) Hmg-Coa Reductase Inhibitors (Statins); Translations: [statins] Allergy to substance 08-24-20 23 Unknown [facility] (20 sources) Nitroglycerin; Translations: [nitroglycerin] Drug Allergy 02-23-20 22 Unknown (qualifier value) [facility] (2 sources) black walnut pollen extract; Translations: [KATJTJN-ULN-QZC REDUCTASE INHIBITORS] Drug Allergy 04-21-20 17 [facility] Repository (1 source) Iodine (And Iodine Containting Drugs) Drug allergy (disorder) 05-28-20 16 [facility] Repository (20 sources) Nitroglycerin Allergy to substance 02-23-20 22 [facility] (20 sources) Iodinated Contrast Media; Translations: [IODINATED CONTRAST MEDIA] Drug Allergy 08-24-20 23 [facility] (14 sources) Simvastatin; Translations: [simvastatin] Drug Allergy 05-10-20 25 elevated liver enzymes [facility] (7 sources) Aminolevulinic Acid; Translations: [aminolevulinic acid] Drug Allergy 11-04-20 13 [facility] Repository (7 sources) Nitroglycerin; Translations: [Nitroglycerin Patch] Drug Allergy [facility] Repository (2 sources) Aminolevulinic Acid; Translations: [AMINOLEVULINIC ACID HCL] Drug Allergy 05-10-[address] [facility]ository Medications Current Medications [...] every six hours as needed for pain Morrow 325 mg-5 mg oral tablet 1 tab(s), Oral, q6hr, 2 tab(s), Refill(s) 0, Take q6hrs as needed for pain., [facility]/pharmacy #[id number], 185, cm, 10/02/24 11:15:00 [...] procedure., # 6 tab(s), Refills(s) 0, Pharmacy: [facility]/pharmacy #[id number], 185, cm, 10/02/24 11:15:00 EST, Height/Length Dosing, 91, kg, 10/02/24 11:15:00 EST, Weight Dosing Start Date: 10/16/24 Status: Ordered Start: 08-11-2024 take 1 tablet by joslyn twice daily Cipro 500 mg Tab 500 mg = 1 tab(s), Oral, BID, Start 3 days prior to procedure., # 6 tab(s), Refills(s) 0, Pharmacy: [facility]/pharmacy #[id number], 185, cm, 08/08/24 10:28:00 [...] procedure., # 1 tab(s), Refills(s) 0, Pharmacy: [facility]/pharmacy #[id number], 185, cm, 10/02/24 11:15:00 [...] week(s), # 42 tab(s), Refills(s) 0, Pharmacy: [facility]/pharmacy #[id number], 185, cm, 10/02/24 11:15:00 [...] DAY for 90 Active polyethylene glycol 3350 31990 mg powder for oral solution (2 sources) [...] Start: 01-09-2019 take 2 tablets by mo [facility] twice daily primidone 50 mg Tab [...] Ordered Repeat number: 1 60 actuat tiotropium 0.79805 mg/actuat inhalation spray (20 sources) Anticholinergic Start: [...] course, # 28 cap(s), Refills(s) 0, Pharmacy: [facility]/pharmacy [...] sources) Long-term current use of anticoagulant; Translations: [intermediate project manager (current) use of anticoagulants] Onset: 08-08-2024 Episodic Other aftercare (1 source) Long-term current use of drug therapy; Translations: [Other 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 helper termite (current) drug therapy] Onset: 04-14-2025 Episodic Other [...] Other Problems Problem Classification Problem Date Documented Date Episodic/Chronic Acute and unspecified renal failure (1 [...] Onset: 04-30-2022 Episodic Other aftercare (1 source) residential (current) use of aspirin; Translations: [PLANT RELIABILITY ENGINEER CURRENT USE OF ASPIRIN] Onset: 08-27-2022 Episodic Other aftercare (1 source) intermediate project manager (current) use of anticoagulants; Translations: [FDC CURRNT USE ANTICOAGULANTS] Onset: 08-27-2022 Episodic Other aftercare (1 source) Other 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 helper termite (current) drug therapy; Translations: [OTH FDC CURRENT DRUG THERAPY] Onset: 08-27-2022 Episodic Other circulatory disease (1 source) Other specified symptoms and signs involving the circulatory and respiratory systems; Translations: [OTH SPEC SX SIGNS INVLV CIRC RS] Onset: 06-19-2022 Episodic Other connective tissue disease (2 sources) Pain of toes of bilateral feet; Translations: [Pain in right toe(s)] 07-06-2024 Episodic Other connective tissue disease (2 sources) Other symptoms and signs involving the musculoskeletal system; Translations: [Other symptoms and signs involving the musculoskeletal system] Onset: 03-12-2025 Episodic Other screening for suspected conditions (not mental disorders or infectious disease) (3 sources) Raised prostate specific antigen; Translations: [Elevated prostate specific antigen [PSA]] Onset: 10-23-2024 Episodic Other skin disorders (6 sources) 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 Pt presented to [facility] ER 10/28/24 due to clot retention. [...] Refuses SARS-C (more content not included)... Normal [facility] Comment on above: Result Comment: Elec [...] MARQUIS LOUISE MD Where: [facility] [address], [address] [place] [address]- Medications What How Much When [...] prescribing physician i (more content not included)... [facility] 36on 05-30-2025 36 Billposting Supervisor called shirley iverson to contact office back to reschedule appointment with . [facility] Office Visiton 05-28-2025 Follow-up visit [id number] Nadir Beth 1940 M Date Provider Department Center 05/28/2025 RUY ESQUIVEL Family History Problem Relation Age of Onset Coronary artery disease Father Family Status - Relation Status Age at Mother Father Level of Service:09324 GA OFFICE/OUTPATIENT ESTABLISHED MOD MDM 30 MIN [facility] Orders Onlyon 05-28-2025 Orders Only [id number] Nadir Beth 1940 M Date Provider Department Center 05/28/2025 RUY ESQUIVEL Family History Problem Relation Age of Onset Coronary artery disease Father Family Status - Relation Status Age at Mother Father [facility] 3005-17-2025 30 Daily Case Managemen t Update Barriers to Discharge: Patient is to discharge to fpc facility [facility] [place] today. Stretcher transport has been established with [facility], picker and sorter load and unload time 1934. Diet: Dietary Orders (From admission, [...] Request Once Comments: Omelet with green pepper, mauritian cheese and onion Wheat toast Sausage Raisin bran Milk Decaf coffee 05/17/25 0802 05/16/25 1553 Special Kitchen Request Once Comments: [place] burger with cheese On the side: tomato, [...] Request Once Comments: Omelet with green pepper, mauritian cheese and onion, 1 slice wheat toast, [...] OT? Answer: gait abnormality 05/10/[address] [facility] 30 The patient is Moderately Stable - [...] Goal: Maintains hematologic stability Outcome: Progressing Normal [facility] CBC WITH AUTO DIFFERENTIALon 05-17-2025 Erythrocyte distribution width (RBC) [Ratio] 19.8 % High 11.5-15.0 [facility] Comment on above: Performed By: #### L [id number] #### [facility] ([facility]) [address] [place] [address] ERYTHROCYTE MEAN CORPUSCULAR HEMOGLOBIN CONCENTRATION (G/DL) BY AUTOMATED 30.4 g/dL Low 32.0-35.0 [facility] Comment on above: Performed By: #### L [id number] #### [facility] ([facility]) [address] [place] [address] Hematocrit (Bld) [Volume fraction] 34.2 % Low 39.0-50.0 [facility] Comment on above: Performed By: #### L [id number] #### [facility] ([facility]) [address] [place] [address] Hemoglobin (Bld) [Mass/Vol] 10.4 g/dL Low 13.0-17.0 [facility] Comment on above: Performed By: #### L [id number] #### [facility] [address] [place] [address] MCH (RBC) [Entitic mass] 25.6 pg Low 27.0-33.0 [facility] Comment on above: Performed By: #### L [id number] #### [facility] ([facility]) [address] [place] [address] MCV (RBC) [Entitic vol] 84.2 fL Normal 82.0-98.0 [facility] Comment on above: Performed By: #### L [id number] #### [facility] ([facility]) [address] [place] [address] NRBC (PER 100 WBCS) BY AUTOMATED COUNT 0.0 % Normal 0 [facility] Comment on above: Performed By: #### L [id number] #### [facility] ([facility]) [address] [place] [address] PLATELETS (10*3/UL) IN BLOOD AUTOMATED COUNT 256 10*3/uL Normal 150-400 [facility] Comment on above: Performed By: #### L [id number] #### [facility] ([facility]) [address] [place] [address] RBC (Bld) [#/Vol] 4.06 10*6/uL Low 4.20-5.70 [facility] Comment on above: Performed By: #### L [id number] #### [facility] ([facility]) [address] [place] [address] WBC (Bld) [#/Vol] 12.14 10*3/uL High 4.00-10.60 [facility] Comment on above: Performed By: #### L [id number] #### [facility] [address] [place] [address] COMPREHENSIVE METABOLIC PANE Jaren 05-17-2025 ALANINE AMINOTRANSFERASE (SGPT) (U/L) IN SER/PLAS <3 Low 7-52 [facility] Comment on above: Performed By: #### L [id number] ####[facility] ([facility])[address] [place] [address] Albumin [Mass/Vol] 3.4 g/dL Low 3.5-5.7 [facility] Comment on above: Performed By: #### L [id number] ####[facility] ([facility])[address] [place] [address] ALP [Catalytic activity/Vol] 68 U/L Normal 34-104 [facility] Comment on above: Performed By: #### L [id number] ####[facility] ([facility])[address] [place] [address] Anion gap [Moles/Vol] 15 mmol/L Normal 7-20 [place] Comment on above: Performed By: #### L [id number] ####[facility] ([facility])[address] [place] [address] AST [Catalytic activity/Vol] 13 U/L Normal 13-39 [facility] Comment on above: Performed By: #### L [id number] ####[facility] ([facility])[address] [place] [address] Bilirubin [Mass/Vol] 0.5 mg/dL Normal 0.3-1.0 [facility] Comment on above: Performed By: #### L [id number] ####[facility] ([facility])[address] [place] [address] Calcium [Mass/Vol] 8.6 mg/dL Normal 8.6-10.3 [facility] Comment on above: Performed By: #### L [id number] ####[facility] ([facility])[address] [place] [address] Chloride [Moles/Vol] 104 mmol/L Normal 98-107 [facility] Comment on above: Performed By: #### L [id number] ####[facility] ([facility])[address] [place] [address] CO2 [Moles/Vol] 25 mmol/L Normal 21-31 [facility] Comment on above: Performed By: #### L [id number] ####[facility] ([facility])[address] [place] [address] Creatinine [Mass/Vol] 1.73 mg/dL High 0.70-1.30 [place] Comment on above: Performed By: #### L [id number] ####[facility] ([facility])[address] [place] [address] GLOMERULAR FILTRATION RATE ML/MIN/1.73 SQ M.PREDICTED 38.0 mL/min/1.73m*2 Low >60.0 [facility] Comment on above: Result Comment: [facility]???s estimated glomerular filtration rate (eGFR) will [...] of individuals. Performed By: #### L [id number] ####[facility] ([facility])[address] [place] [address] Glucose [Mass/Vol] 239 mg/dL High 70-100 [facility] Comment on above: Performed By: #### L [id number] ####[facility] ([facility])[address] [place] [address] Potassium [Moles/Vol] 3.9 mmol/L Normal 3.5-5.1 [place] Comment on above: Performed By: #### L [id number] ####[facility] ([facility])[address] [place] [address] Protein [Mass/Vol] 6.3 g/dL Normal 6.0-8.3 [facility] Comment on above: Performed By: #### L [id number] ####[facility] ([facility])[address] [place] [address] Sodium [Moles/Vol] 140 mmol/L Normal 136-145 [facility] Comment on above: Performed By: #### L [id number] ####[facility] ([facility])[address] [place] [address] Urea nitrogen [Mass/Vol] 38 mg/dL High 7-25 [facility] Comment on above: Performed By: #### L [id number] ####[facility] ([facility])[address] [place] [address] UREA NITROGEN/CREATININE (MASS RATIO) IN SER/PLAS 22.[address] [facility] Comment on above: Performed By: #### L [id number] ####[facility] (BEBERE)[address] [place] [address] DSon 05-17-2025 DS -- Attestation signed by [...] was admitted as a direct transfer from [place] on 05/10/2025 for acute on chronic heart failure. 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 He presented to the ED on the advice of his physician following an increase in lower extremity edema with associated labs showing a BNP 6200. In the [place] ED he was found to have pulmonary vascular congestion with right sided pleural effusion on chest x-ray, and found to be hypertensive at 190/68, and EKG showed A-fib, he was initially managed medically with lasix and antihypertensives prior to transfer. Patient follows up with Dr. Bland who had scheduled right heart cath on 05/10/2025. At [facility] echo was performed which was unable to [...] 05/28/2025 2:20 PM Ruy Amanda CNP [facility] 06/15/2025 10:30 AM [facility] CV ECHO ROOM 2 [facility] [place] [facility] 06/18/2025 11:30 AM Claribel Cisneros MD [...] Lasix glimepi (more content not included)... Normal [facility] MANUAL DIFFERENTIALon 2024 BASOPHILS (10*3/UL) IN BLOOD BY CALCULATION 0.05 10*3/uL Normal 0.00-0.20 [facility] Comment on above: Performed By: #### L [id number] #### [facility] ([facility]) [address] [place] [address] BASOPHILS/100 LEUKOCYTES IN BLOOD BY AUTOMATED COUNT 0.4 % Normal 0.0-1.0 [facility] Comment on above: Performed By: #### L [id number] #### [facility] ([facility]) [address] [place] [address] EOSINOPHILS (10*3/UL) IN BLOOD BY CALCULATION 0.05 10*3/uL Normal 0.00-0.50 [facility] Comment on above: Performed By: #### L [id number] #### [facility] ([facility]) [address] [place] [address] EOSINOPHILS/100 LEUKOCYTES IN BLOOD BY AUTOMATED COUNT 0.4 % Normal 0.0-6.0 [facility] Comment on above: Performed By: #### L [id number] #### [facility] ([facility]) [address] [place] [address] IMMATURE GRANULOCYTES (10*3/UL) IN BLOOD BY CALCULATION 0.07 10*3/uL Normal 0.00-0.20 [facility] Comment on above: Performed By: #### L [id number] #### [facility] ([facility]) [address] [place] [address] IMMATURE GRANULOCYTES/100 LEUKOCYTES IN BLOOD BY AUTOMATED COUNT 0.6 % Normal 0.0-1.0 [facility] Comment on above: Performed By: #### L [id number] #### [facility] ([facility]) [address] [place] [address] LYMPHOCYTES (10*3/UL) IN BLOOD BY CALCULATION 0.87 10*3/uL Low 1.20-4.00 [facility] Comment on above: Performed By: #### L [id number] #### [facility] ([facility]) [address] [place] [address] LYMPHOCYTES/100 LEUKOCYTES IN BLOOD BY AUTOMATED COUNT 7.2 % Low 20.0-45.0 [facility] Comment on above: Performed By: #### L [id number] #### [facility] ([facility]) [address] [place] [address] MONOCYTES (10*3/UL) IN BLOOD BY CALCUATION 1.92 10*3/uL High 0.10-1.00 [facility] Comment on above: Performed By: #### L [id number] #### [facility] ([facility]) [address] [facility] [place] [address] MONOCYTES/100 LEUKOCYTES IN BLOOD BY AUTOMATED COUNT 15.8 % High 5.0-12.0 [facility] Comment on above: Performed By: #### L [id number] #### [facility] ([facility]) [address] [place] [address] NEUTROPHILS (10*3/UL) IN BLOOD BY CALCULATION 9.2 10*3/uL High 1.6-7.6 [facility] Comment on above: Performed By: #### L [id number] #### [facility] ([facility]) [address] [address] NEUTROPHILS/100 LEUKOCYTES IN BLOOD BY AUTOMATED COUNT 75.6 % High 40.0-72.0 [facility] Comment on above: Performed By: #### L [id number] #### [facility] ([facility]) [address] [address] NURSNOTEon 05-17-2025 NURSNOTE Report called to BRANDEN Norton at [facility] NURSNOTE Patient Name: Nadir Beth : 1940 [...] Liz Joshi RN Rapid Response Team Nurse [phone] 05/17/2025 10:[address] [facility] NURSNOTE Patient Name: Nadir Beth : 1940 [...] time, but encouraged to reach out to SEWAGE SCREEN OPERATOR if anything changes. Marc Araiza RN Rapid Response Team Nurse [phone] 05/17/2025 2:[address] [facility] POCT GLUCOSE METER UNSOLICIT ED RESULTSon 05-17-2025 Glucose [Mass/Vol] 331 mg/dL High 70-105 [facility] Comment on above: Order Comment: Waive d Testing in the ED is performed under the ED CLIA certificate #[id number]. Result Comment: jzal [email or web address] Performed By: #### L [id number] ####[facility] ([facility])[address] [place] [address] Glucose [Mass/Vol] 310 mg/dL High 70-105 [facility] Comment on above: Order Comment: Waive d Testing in the ED is performed under the ED CLIA certificate #[id number]. Result Comment: jzal [email or web address] Performed By: #### L [id number] ####[facility] ([facility])[address] [place] [address] Glucose [Mass/Vol] 235 mg/dL High 70-105 [facility] Comment on above: Order Comment: Waive d Testing in the ED is performed under the ED CLIA certificate #[id number]. Result Comment: jzal [email or web address] Performed By: #### L [id number] ####[facility] ([facility])[address] [place] [address] 30on 05-16-2025 30 The patient is Moderately [...] and behaviors that affect risk of falls Lydia fall precautions as indicated by assessment Educate [...] Flowsheets (Take (more content not included)... Normal [facility] 30 Daily Case Managemen t Update Barriers to Discharge: Pending clinical course and clearance. POD #1 TAVR. Needs PT & OT to reevaluate to make sure patient can still return home. Slight ARTUR. ECHO today. Blood cultures pending. Diet: Dietary Orders (From admission, onward) Start Ordered 05/16/25 1553 Special Kitchen Request Once Comments: [place] burger with cheese On the side: tomato, [...] Request Once Comments: Omelet with green pepper, mauritian cheese and onion, 1 slice wheat toast, [...] Reason for OT? Answer: gait abnormality 05/10/[address] [facility] APTTon 05-16-2025 ACTIVATED PARTIAL THROMBOPLASTIN TIME IN PPP BY COAGULATION ASSAY 77.8 Seconds High 25.0-35.0 [facility] Comment on above: Result Comment: Clin ical significance of the APTT is questionable in the presence of heparin. Performed By: #### L [id number] #### [facility] ([facility]) [address] [place] [address] ACTIVATED PARTIAL THROMBOPLASTIN TIME IN PPP BY COAGULATION ASSAY 63.8 Seconds High 25.0-35.0 [facility] Comment on above: Result Comment: Clin ical significance of the APTT is questionable in the presence of heparin. Performed By: #### L [id number] #### [facility] ([facility]) [address] [place] [address] BASIC METABOLIC PANELon Anion gap [Moles/Vol] 19 mmol/L Normal 7-20 [place] Comment on above: Performed By: #### L [id number] #### [facility] ([facility]) [address] [place] [address] Calcium [Mass/Vol] 8.6 mg/dL Normal 8.6-10.3 [facility] Comment on above: Performed By: #### L [id number] #### [facility] ([facility]) [address] [place] [address] Chloride [Moles/Vol] 103 mmol/L Normal 98-107 [facility] Comment on above: Performed By: #### L [id number] #### [facility] ([facility]) [address] [place] [address] CO2 [Moles/Vol] 22 mmol/L Normal 21-31 [facility] Comment on above: Performed By: #### L [id number] #### [facility] ([facility]) [address] [place] [address] Creatinine [Mass/Vol] 1.71 mg/dL High 0.70-1.30 [place] Comment on above: Performed By: #### L [id number] #### [facility] ([facility]) [address] [place] [address] GLOMERULAR FILTRATION RATE ML/MIN/1.73 SQ M.PREDICTED 38.5 mL/min/1.73m*2 Low >60.0 [facility] Comment on above: Result Comment: [facility]???s estimated glomerular filtration rate (eGFR) will [...] individuals. Performed By: #### L [id number] #### [facility] ([facility]) [address] [place] [address] Glucose [Mass/Vol] 222 mg/dL High 70-100 [facility] Comment on above: Performed By: #### L [id number] #### [facility] ([facility]) [address] [place] [address] Potassium [Moles/Vol] 4.2 mmol/L Normal 3.5-5.1 [facility] Comment on above: Performed By: #### L [id number] #### [facility] ([facility]) [address] [place] [address] Sodium [Moles/Vol] 140 mmol/L Normal 136-145 [facility] Comment on above: Performed By: #### L [id number] #### [facility] ([facility]) [address] [place] [address] Urea nitrogen [Mass/Vol] 41 mg/dL High 7-25 [facility] Comment on above: Performed By: #### L [id number] #### [facility] [address] [place] [address] UREA NITROGEN/CREATININE (MASS RATIO) IN SER/PLAS 24.[address] [facility] Comment on above: Performed By: #### L [id number] #### [facility] [address] [place] [address] BLOOD CULTUREon 05-16-2025 Bacteria identified Cx Nom (Bld) No growth at 5 days Normal [facility] Comment on above: Order Comment: From a different site than #1. Performed By: #### L [id number] ####[facility] ([facility])[address] [place] [address] Performed By: #### L [id number] #### [facility] ([facility]) [address] [place] [address] CBCon 05-16-2025 Erythrocyte distribution width (RBC) [Ratio] 19.5 % High 11.5-15.0 [facility] Comment on above: Performed By: #### L [id number] #### [facility] [address] [place] [address] ERYTHROCYTE MEAN CORPUSCULAR HEMOGLOBIN CONCENTRATION (G/DL) BY AUTOMATED 30.2 g/dL Low 32.0-35.0 [facility] Comment on above: Performed By: #### L [id number] #### [facility] [address] [place] [address] Hematocrit (Bld) [Volume fraction] 33.1 % Low 39.0-50.0 [facility] Comment on above: Performed By: #### L [id number] #### [facility] [address] [place] [address] Hemoglobin (Bld) [Mass/Vol] 10.0 g/dL Low 13.0-17.0 [facility] Comment on above: Performed By: #### L [id number] #### [facility] ([facility]) [address] [place] [address] MCH (RBC) [Entitic mass] 25.4 pg Low 27.0-33.0 [facility] Comment on above: Performed By: #### L [id number] #### [facility] ([facility]) [address] [place] [address] MCV (RBC) [Entitic vol] 84.0 fL Normal 82.0-98.0 [facility] Comment on above: Performed By: #### L [id number] #### [facility] ([facility]) [address] [place] [address] PLATELETS (10*3/UL) IN BLOOD AUTOMATED COUNT 306 10*3/uL Normal 150-400 [facility] Comment on above: Performed By: #### L [id number] #### [facility] ([facility]) [address] [place] [address] RBC (Bld) [#/Vol] 3.94 10*6/uL Low 4.20-5.70 [facility] Comment on above: Performed By: #### L [id number] #### [facility] ([facility]) [address] [place] [address] WBC (Bld) [#/Vol] 14.93 10*3/uL High 4.00-10.60 [facility] Comment on above: Performed By: #### L [id number] #### [facility] ([facility]) [address] [place] [address] Orders Onlyon 05-16-2025 Orders Only [id number] Nadir Beth 1940 M Date Provider Department Center 05/16/2025 [facility] No family history on file Normal [facility] POCT GLUCOSE METER UNSOLICIT ED RESULTSon 05-16-2025 Glucose [Mass/Vol] 374 mg/dL High 70-105 [facility] Comment on above: Order Comment: Waive d Testing in the ED is performed under the ED CLIA certificate #[id number]. Result Comment: [email or web address] Performed By: #### L [id number] #### [facility] ([facility]) [address] [place] [address] Glucose [Mass/Vol] 292 mg/dL High 70-105 [facility] Comment on above: Order Comment: Waive d Testing in the ED is performed under the ED CLIA certificate #[id number]. Result Comment: [email or web address] Performed By: #### L [id number] #### [facility] ([facility]) [address] [place] [address] Glucose [Mass/Vol] 254 mg/dL High 70-105 [facility] Comment on above: Order Comment: Waive d Testing in the ED is performed under the ED CLIA certificate #[id number]. Result Comment: mmol den3 Performed By: #### L [id number] #### [facility] [address] [place] [address] Glucose [Mass/Vol] 272 mg/dL High 70-105 [facility] Comment on above: Order Comment: Waive d Testing in the ED is performed under the ED CLIA certificate #[id number]. Result Comment: mmol den3 Performed By: #### L [id number] #### [facility] ([facility]) [address] [place] [address] 30on 05-15-2025 30 Daily Case Managemen t Update Multidisciplinary rounds have been completed. Barriers to Discharge: Patient to go for TAVR Today. Discharge dispo: pending clinical course, Prior to Operation PT/OT rec Patient is able to return to prior living environment (Presents from SNF). [facility], with tentative plan to return when medically ready. Diet: Dietary Orders (From admission, onward) Start Ordered 05/15/25 0001 Diet NPO Diet effective midnight Comments: Sips with medications Question: Reason for NPO: Answer: Operation/Procedure 05/14/25 1521 05/14/25 0631 Special Kitchen Request Once Comments: Omelet with green pepper, mauritian cheese and onion, 1 slice wheat toast, [...] Reason for OT? Answer: gait abnormality 05/10/[address] [facility] 30 The patient is Moderately Stable - [...] the next 3 months Outcome: Progressing Normal [facility] APTTon 05-15-2025 ACTIVATED PARTIAL THROMBOPLASTIN TIME IN PPP BY COAGULATION ASSAY 73.2 Seconds High 25.0-35.0 [facility] Comment on above: Result Comment: Clin ical significance of the APTT is questionable in the presence of heparin. Performed By: #### L [id number] #### [facility] ([facility]) [address] [place] [address] ACTIVATED PARTIAL THROMBOPLASTIN TIME IN PPP BY COAGULATION ASSAY 51.8 Seconds High 25.0-35.0 [facility] Comment on above: Result Comment: Clin ical significance of the APTT is questionable in the presence of heparin. Performed By: #### L [id number] #### [facility] ([facility]) [address] [place] [address] BASIC METABOLIC PANELon Anion gap [Moles/Vol] 16 mmol/L Normal 7-20 [place] Comment on above: Performed By: #### L [id number] #### [facility] ([facility]) [address] [place] [address] Calcium [Mass/Vol] 8.9 mg/dL Normal 8.6-10.3 [facility] Comment on above: Performed By: #### L [id number] #### [facility] [address] [place] [address] Chloride [Moles/Vol] 99 mmol/L Normal 98-107 [facility] Comment on above: Performed By: #### L [id number] #### [facility] [address] [place] [address] CO2 [Moles/Vol] 27 mmol/L Normal 21-31 [facility] Comment on above: Performed By: #### L [id number] #### [facility] ([facility]) [address] [place] [address] Creatinine [Mass/Vol] 1.61 mg/dL High 0.70-1.30 [place] Comment on above: Performed By: #### L [id number] #### [facility] ([facility]) [address] [place] [address] GLOMERULAR FILTRATION RATE ML/MIN/1.73 SQ M.PREDICTED 41.4 mL/min/1.73m*2 Low >60.0 [facility] Comment on above: Result Comment: [facility]???s estimated glomerular filtration rate (eGFR) will [...] individuals. Performed By: #### L [id number] #### [facility] [address] [place] [address] Glucose [Mass/Vol] 255 mg/dL High 70-100 [facility] Comment on above: Performed By: #### L [id number] #### [facility] [address] [place] [address] Potassium [Moles/Vol] 4.5 mmol/L Normal 3.5-5.1 [facility] Comment on above: Performed By: #### L [id number] #### [facility] [address] [place] [address] Sodium [Moles/Vol] 137 mmol/L Normal 136-145 [facility] Comment on above: Performed By: #### L [id number] #### [facility] ([facility] [address] [place] [address] Urea nitrogen [Mass/Vol] 34 mg/dL High 7-25 [facility] Comment on above: Performed By: #### L [id number] #### [facility] ([facility]) [address] [place] [address] UREA NITROGEN/CREATININE (MASS RATIO) IN SER/PLAS 21.[address] [facility] Comment on above: Performed By: #### L [id number] #### [facility] [address] [place] [address] CBCon 05-15-2025 Erythrocyte distribution width (RBC) [Ratio] 19.0 % High 11.5-15.0 [facility] Comment on above: Performed By: #### L [id number] #### [facility] ([facility]) [address] [place] [address] ERYTHROCYTE MEAN CORPUSCULAR HEMOGLOBIN CONCENTRATION (G/DL) BY AUTOMATED 30.7 g/dL Low 32.0-35.0 [facility] Comment on above: Performed By: #### L [id number] #### [facility] [address] [place] [address] Hematocrit (Bld) [Volume fraction] 33.6 % Low 39.0-50.0 [facility] Comment on above: Performed By: #### L [id number] #### [facility] ([facility]) [address] [place] [address] Hemoglobin (Bld) [Mass/Vol] 10.3 g/dL Low 13.0-17.0 [facility] Comment on above: Performed By: #### L [id number] #### [facility] ([facility] [address] [place] [address] MCH (RBC) [Entitic mass] 25.2 pg Low 27.0-33.0 [facility] Comment on above: Performed By: #### L [id number] #### [facility] ([facility]) [address] [place] [address] MCV (RBC) [Entitic vol] 82.4 fL Normal 82.0-98.0 [facility] Comment on above: Performed By: #### L [id number] #### [facility] ([facility]) [address] [place] [address] PLATELETS (10*3/UL) IN BLOOD AUTOMATED COUNT 306 10*3/uL Normal 150-400 [facility] Comment on above: Performed By: #### L [id number] #### [facility] ([facility]) [address] [place] [address] RBC (Bld) [#/Vol] 4.08 10*6/uL Low 4.20-5.70 [facility] Comment on above: Performed By: #### L [id number] #### [facility] [address] [place] [address] WBC (Bld) [#/Vol] 12.04 10*3/uL High 4.00-10.60 [facility] Comment on above: Performed By: #### L [id number] #### [facility] [address] [place] [address] [facility] 05-15-2025 -- Attestation signed by García Muir [...] Beth Age - 85 [facility]. - 1940 [id number] Date of Admission - 05/10/2025 2:37 AM History of Present Illness Nadir Beth is an 85 y.o. male with a PMH of HFpEF, paroxysmal A-fib on Xarelto, CVA, T2DM, hypertension, renal artery stenosis left renal stent, and hyperlipidemia who was admitted as a direct transfer from [place] on 05/10/2025 for acute on chronic heart failure. 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 He presented to the ED on the advice of his physician following an increase in lower extremity edema with associated labs showing a BNP 6200. In the [place] ED he was found to have pulmonary vascular congestion with right sided pleural effusion on chest x-ray, and found to be hypertensive at 190/68, initially managed medically with lasix and antihypertensives prior to transfer. At [facility] echo was performed which was unable to [...] CO2 mmol/L 2 (more content not included)... [facility] HP H&P reviewed. The patient was examined [...] family members and they agreed to TAVR. [facility] NURSNOTEon 05-15-2025 NURSNOTE Report called to Karen OTERO on MICU. [facility] OPNOTEon 05-15-2025 OPNOTE TAVR Operative Note Date: 05/15/2025 Location: [facility] (Cath) Name: Nadir Beth, : [...] the right common femoral artery using two 6-Syrian ProGlide devices. Angio-Seal vascular closure in the left common femoral artery. Placement of SENTINEL cerebral embolic protection device. OPERATORS: Interventional Cardiology Kick Press Setter: Claribel Cisneros MD Cardiac Surgery Kick Press Setter: Negro Lopez MD Practice Architect Interventional Cardiology Kick Press Setter: Aissatou Hughes METHODS: Procedure was explained to the patient with risks and benefits. he signed informed consent. he was brought to laborer cheesemaking in a fasting state. The procedure was performed in the cardiac laborer cheesemaking under conscious sedation. The right wrist area was prepped and draped in usual fashion. Access was obtained using ultrasound guidance and micropuncture technique in the right radial artery and a 6-Syrian x 11 cm Hydrophilic sheath was placed. Verapamil was given through the sheath. Both groin areas, and the right neck area were prepped and draped in usual fashion. Ultrasound guidance was used for micropuncture access in the right internal jugular vein and a 6-Syrian x 11 cm introducer sheath was secured in place. Micropuncture technique and ultrasound guidance were used for access in the right common femoral artery and inner cannula angiography was performed followed by upsizing to a 6-Syrian x 11 cm sheath. The same was done for the access in the left common femoral artery. At this time, we proceeded with the preclosure in the right common femoral artery using 2 crossing Perclose devices and the access was then upsized over a wire to a 10-Syrian sheath. A 5-Syrian balloon-tipped pacemaker wire was advanced through the internal jugular vein sheath to the right ventricular apex and adequate capture was confirmed. Heparin was given intravenously and therapeutic ACT confirmed during the rest of the procedure and additional heparin given as needed. Through the left common femoral sheath, an angled 6-Syrian pigtail catheter was then advanced to the ascending aorta and placed in the noncoronary cusp. Aortic root angiography was performed in the coplanar view as determined by prior CT scan measurements. A 6-Syrian IM diagnostic catheter was then advanced through the right radial sheath and then navigated using an 0.035 inch wire to the ascending aorta and this was used to place an exchange length [employer] 0.014 inch wire. The wire was advanced to the left carotid artery. A Sterlington device was then prepped using standard techniques and then advanced. The proximal filter was deployed in the innominate artery followed by deployment of the distal filter. The Sterlington device was then secured in place. The right common femoral access was then upsized using an exchange length Lunderquist wire [which was placed through a multipurpose catheter] to the 14-Syrian Le E-sheath. The sheath was secured in place. A 6-Syrian AL1 diagnostic catheter was advanced via the E-sheath, and using a straight stiff Glidewire, the aortic valve was crossed and the catheter was advanced in the left ventricular cavity, and using an exchange length J-wire, a 6-Syrian angled pigtail catheter was advanced to make [...] The delivery c (more content not included)... [facility] POCT GLUCOSE METER UNSOLICIT ED RESULTSon 05-15-2025 Glucose [Mass/Vol] 193 mg/dL High 70-105 [facility] Comment on above: Order Comment: Waive d Testing in the ED is performed under the ED CLIA certificate #[id number]. Result Comment: [email or web address] Performed By: #### L [id number] #### [facility] ([facility]) [address] [place] [address] Glucose [Mass/Vol] 334 mg/dL High 70-105 [facility] Comment on above: Order Comment: Kim nt had pre procedure medications already for cath Result Comment: [email or web address] Performed By: #### L [id number] ####[facility] ([facility])[address] [place] [address] Glucose [Mass/Vol] 288 mg/dL High 70-105 [facility] Comment on above: Order Comment: Waive d Testing in the ED is performed under the ED CLIA certificate #[id number]. Result Comment: [email or web address] Performed By: #### L [id number] #### [facility] ([facility]) [address] [place] [address] Glucose [Mass/Vol] 351 mg/dL High 70-105 [facility] Comment on above: Order Comment: Waive d Testing in the ED is performed under the ED CLIA certificate #[id number]. Result Comment: clar com Performed By: #### L [id number] #### [facility] ([facility]) [address] [place] [address] 30on 05-14-2025 30 Daily Case Managemen t [...] is for patient to discharge to [facility] when medically ready. Diet: Dietary Orders (From admission, onward) Start Ordered 05/14/25 0631 Special Kitchen Request Once Comments: Omelet with green pepper, mauritian cheese and onion, 1 slice wheat toast, [...] OT? Answer: gait abnormality 05/10/[address] [facility] 30 The patient is Moderately Stable - [...] the next 3 months Outcome: Progressing Normal [facility] APTTon 05-14-2025 ACTIVATED PARTIAL THROMBOPLASTIN TIME IN PPP BY COAGULATION ASSAY 57.1 Seconds High 25.0-35.0 [facility] Comment on above: Result Comment: Clin ical significance of the APTT is questionable in the presence of heparin. Performed By: #### L [id number] #### [facility] ([facility]) [address] [place] [address] ACTIVATED PARTIAL THROMBOPLASTIN TIME IN PPP BY COAGULATION ASSAY 33.6 Seconds Normal 25.0-35.0 [facility] Comment on above: Order Comment: Basel ine aPTT before initiating heparin infusion. Result Comment: Clin ical significance of the APTT is questionable in the presence of heparin. Performed By: #### L [id number] ####[facility] ([facility])[address] [place] [address] BASIC METABOLIC PANELon 04-17 Anion gap [Moles/Vol] 13 mmol/L Normal 7-20 [place] Comment on above: Performed By: #### L [id number] #### [facility] ([facility]) [address] [place] [address] Calcium [Mass/Vol] 8.4 mg/dL Low 8.6-10.3 [facility] Comment on above: Performed By: #### L [id number] #### [facility] ([facility]) [address] [place] [address] Chloride [Moles/Vol] 100 mmol/L Normal 98-107 [facility] Comment on above: Performed By: #### L [id number] #### [facility] ([facility]) [address] [place] [address] CO2 [Moles/Vol] 29 mmol/L Normal 21-31 [facility] Comment on above: Performed By: #### L [id number] #### [facility] ([facility]) [address] [place] [address] Creatinine [Mass/Vol] 1.74 mg/dL High 0.70-1.30 [place] Comment on above: Performed By: #### L [id number] #### [facility] ([facility]) [address] [place] [address] GLOMERULAR FILTRATION RATE ML/MIN/1.73 SQ M.PREDICTED 37.7 mL/min/1.73m*2 Low >60.0 [facility] Comment on above: Result Comment: [facility]???s estimated glomerular filtration rate (eGFR) will [...] individuals. Performed By: #### L [id number] #### [facility] ([facility]) [address] [place] [address] Glucose [Mass/Vol] 186 mg/dL High 70-100 [facility] Comment on above: Performed By: #### L [id number] #### [facility] ([facility]) [address] [place] [address] Potassium [Moles/Vol] 3.8 mmol/L Normal 3.5-5.1 [place] Comment on above: Performed By: #### L [id number] #### [facility] [address] [place] [address] Sodium [Moles/Vol] 138 mmol/L Normal 136-145 [facility] Comment on above: Performed By: #### L [id number] #### [facility] ([facility]) [address] [place] [address] Urea nitrogen [Mass/Vol] 34 mg/dL High 7-25 [facility] Comment on above: Performed By: #### L [id number] #### [facility] ([facility]) [address] [place] [address] UREA NITROGEN/CREATININE (MASS RATIO) IN SER/PLAS 19.[address] [facility] Comment on above: Performed By: #### L [id number] #### [facility] ([facility]) [address] [place] [address] PLATELET COUNTon 05-14-2025 PLATELETS (10*3/UL) IN BLOOD AUTOMATED COUNT 297 10*3/uL Normal 150-400 [facility] Comment on above: Performed By: #### L [id number] #### [facility] ([facility]) [address] [place] [address] POCT GLUCOSE METER UNSOLICIT ED RESULTSon 05-14-2025 Glucose [Mass/Vol] 303 mg/dL High 70-105 [facility] Comment on above: Order Comment: Waive d Testing in the ED is performed under the ED CLIA certificate #[id number]. Result Comment: [email or web address] Performed By: #### L [id number] #### [facility] ([facility]) [address] [place] [address] Glucose [Mass/Vol] 254 mg/dL High 70-105 [facility] Comment on above: Order Comment: Waive d Testing in the ED is performed under the ED CLIA certificate #[id number]. Result Comment: [email or web address] Performed By: #### L [id number] #### [facility] ([facility]) [address] [place] [address] Glucose [Mass/Vol] 225 mg/dL High 70-105 [facility] Comment on above: Order Comment: Waive d Testing in the ED is performed under the ED CLIA certificate #[id number]. Result Comment: oope rac Performed By: #### L [id number] ####[facility] ([facility])[address] [place] [address] Glucose [Mass/Vol] 209 mg/dL High 70-105 [facility] Comment on above: Order Comment: Waive d Testing in the ED is performed under the ED CLIA certificate #[id number]. Result Comment: oope rac Performed By: #### L [id number] ####[facility] ([facility])[address] [place] [address] 30on 05-13-2025 30 The patient is Moderately [...] the next 3 months Outcome: Progressing Normal [facility] BASIC METABOLIC PANELon 06- Anion gap [Moles/Vol] 14 mmol/L Normal 7-20 [place] Comment on above: Performed By: #### L [id number] #### [facility] [address] [place] [address] Calcium [Mass/Vol] 8.5 mg/dL Low 8.6-10.3 [facility] Comment on above: Performed By: #### L [id number] #### [facility] [address] [place] [address] Chloride [Moles/Vol] 99 mmol/L Normal 98-107 [facility] Comment on above: Performed By: #### L [id number] #### [facility] ([facility]) [address] [place] [address] CO2 [Moles/Vol] 29 mmol/L Normal 21-31 [facility] Comment on above: Performed By: #### L [id number] #### [facility] ([facility]) [address] [place] [address] Creatinine [Mass/Vol] 1.65 mg/dL High 0.70-1.30 [place] Comment on above: Performed By: #### L [id number] #### [facility] ([facility]) [address] [place] [address] GLOMERULAR FILTRATION RATE ML/MIN/1.73 SQ M.PREDICTED 40.2 mL/min/1.73m*2 Low >60.0 [facility] Comment on above: Result Comment: [facility]???s estimated glomerular filtration rate (eGFR) will [...] individuals. Performed By: #### L [id number] #### [facility] ([facility] [address] [place] [address] Glucose [Mass/Vol] 206 mg/dL High 70-100 [facility] Comment on above: Performed By: #### L [id number] #### [facility] ([facility] [address] [place] [address] Potassium [Moles/Vol] 3.5 mmol/L Normal 3.5-5.1 [facility] Comment on above: Performed By: #### L [id number] #### [facility] ([facility] [address] [place] [address] Sodium [Moles/Vol] 138 mmol/L Normal 136-145 [facility] Comment on above: Performed By: #### L [id number] #### [facility] ([facility] [address] [place] [address] Urea nitrogen [Mass/Vol] 32 mg/dL High 7-25 [facility] Comment on above: Performed By: #### L [id number] #### [facility] ([facility] [address] [place] [address] UREA NITROGEN/CREATININE (MASS RATIO) IN SER/PLAS 19.[address] [facility] Comment on above: Performed By: #### L [id number] #### [facility] ([facility] [address] [place] [address] CBCon 05-13-2025 Erythrocyte distribution width (RBC) [Ratio] 18.9 % High 11.5-15.0 [facility] Comment on above: Performed By: #### L [id number] #### [facility] ([facility] [address] [place] [address] ERYTHROCYTE MEAN CORPUSCULAR HEMOGLOBIN CONCENTRATION (G/DL) BY AUTOMATED 31.3 g/dL Low 32.0-35.0 [facility] Comment on above: Performed By: #### L [id number] #### [facility] ([facility] [address] [place] [address] Hematocrit (Bld) [Volume fraction] 31.3 % Low 39.0-50.0 [facility] Comment on above: Performed By: #### L [id number] #### [facility] ([facility]) [address] [place] [address] Hemoglobin (Bld) [Mass/Vol] 9.8 g/dL Low 13.0-17.0 [facility] Comment on above: Performed By: #### L [id number] #### [facility] ([facility]) [address] [place] [address] MCH (RBC) [Entitic mass] 25.8 pg Low 27.0-33.0 [facility] Comment on above: Performed By: #### L [id number] #### [facility] ([facility]) [address] [place] [address] MCV (RBC) [Entitic vol] 82.4 fL Normal 82.0-98.0 [facility] Comment on above: Performed By: #### L [id number] #### [facility] ([facility]) [address] [place] [address] PLATELETS (10*3/UL) IN BLOOD AUTOMATED COUNT 287 10*3/uL Normal 150-400 [facility] Comment on above: Performed By: #### L [id number] #### [facility] ([facility]) [address] [place] [address] RBC (Bld) [#/Vol] 3.80 10*6/uL Low 4.20-5.70 [facility] Comment on above: Performed By: #### L [id number] #### [facility] ([facility]) [address] [place] [address] WBC (Bld) [#/Vol] 10.18 10*3/uL Normal 4.00-10.60 [facility] Comment on above: Performed By: #### L [id number] #### [facility] ([facility]) [address] [place] [address] POCT GLUCOSE METER UNSOLICIT ED RESULTSon 05-13-2025 Glucose [Mass/Vol] 219 mg/dL High 70-105 [facility] Comment on above: Order Comment: Waive d Testing in the ED is performed under the ED CLIA certificate #[id number]. Result Comment: [email or web address] [email or web address] Performed By: #### L [id number] #### [facility] ([facility]) [address] [place] [address] Glucose [Mass/Vol] 277 mg/dL High 70-105 [facility] Comment on above: Order Comment: Kim nt had pre procedure medications already for cath Result Comment: [email or web address] [email or web address] Performed By: #### L [id number] ####[facility] ([facility])[address] [place] [address] Glucose [Mass/Vol] 274 mg/dL High 70-105 [facility] Comment on above: Order Comment: Waive d Testing in the ED is performed under the ED CLIA certificate #[id number]. Result Comment: [email or web address] [email or web address] Performed By: #### L [id number] #### [facility] ([facility]) [address] [place] [address] Glucose [Mass/Vol] 222 mg/dL High 70-105 [facility] Comment on above: Order Comment: Waive d Testing in the ED is performed under the ED CLIA certificate #[id number]. Result Comment: [email or web address] [email or web address] Performed By: #### L [id number] #### [facility] ([facility]) [address] [place] [address] 30on 05-12-2025 30 The patient is Moderately Stable - Low risk of patient condition declining or worsening The patient's goals for the shift include Comfort, rest The clinical goals for the shift include Stable vitals, comfort Normal [facility] 30 The patient is Moderately Stable - [...] the next 3 months Outcome: Progressing Normal [facility] 30 The patient is Moderately Stable - [...] the next 3 months Outcome: Progressing Normal [facility] ANTI-XA (HEPARIN LEVEL)on HEPARIN UNFRACTIONATED (U/ML) IN PPP BY CHROMOGENIC METHOD 0.32 IU/mL Normal 0.3-0.7 [facility] Comment on above: Result Comment: Jessica roxaban and Apixaban will interfere with the anti Xa assay used to monitor UFH and LMWH. Performed By: #### L [id number] #### [facility] ([facility]) [address] [place] [address] HEPARIN UNFRACTIONATED (U/ML) IN PPP BY CHROMOGENIC METHOD 0.42 IU/mL Normal 0.3-0.7 [facility] Comment on above: Result Comment: [place] roxaban and Apixaban will interfere with the anti Xa assay used to monitor UFH and LMWH. Performed By: #### L [id number] ####[facility] ([facility])[address] [place] [address] BASIC METABOLIC PANELon 04-16 Anion gap [Moles/Vol] 14 mmol/L Normal 7-20 [place] Comment on above: Performed By: #### L [id number] ####[facility] ([facility])[address] [place] [address] Calcium [Mass/Vol] 8.5 mg/dL Low 8.6-10.3 [facility] Comment on above: Performed By: #### L [id number] ####[facility] ([facility])[address] [place] [address] Chloride [Moles/Vol] 99 mmol/L Normal 98-107 [facility] Comment on above: Performed By: #### L [id number] ####[facility] ([facility] [place] [address] CO2 [Moles/Vol] 29 mmol/L Normal 21-31 [facility] Comment on above: Performed By: #### L [id number] ####[facility] ([facility])[address] [place] [address] Creatinine [Mass/Vol] 1.63 mg/dL High 0.70-1.30 [place] Comment on above: Performed By: #### L [id number] ####[facility] ([facility])[address] [place] [address] GLOMERULAR FILTRATION RATE ML/MIN/1.73 SQ M.PREDICTED 40.8 mL/min/1.73m*2 Low >60.0 [facility] Comment on above: Result Comment: [facility]???s estimated glomerular filtration rate (eGFR) will [...] of individuals. Performed By: #### L [id number] ####[facility] ([facility])[address] [place] [address] Glucose [Mass/Vol] 191 mg/dL High 70-100 [facility] Comment on above: Performed By: #### L [id number] ####[facility] ([facility] [place] [address] Potassium [Moles/Vol] 3.5 mmol/L Normal 3.5-5.1 [place] Comment on above: Performed By: #### L [id number] ####[facility] ([facility] [place] [address] Sodium [Moles/Vol] 138 mmol/L Normal 136-145 [facility] Comment on above: Performed By: #### L [id number] ####[facility] ([facility])[address] [place] [address] Urea nitrogen [Mass/Vol] 36 mg/dL High 7-25 [facility] Comment on above: Performed By: #### L [id number] ####[facility] ([facility])[address] [place] [address] UREA NITROGEN/CREATININE (MASS RATIO) IN SER/PLAS 22.[address] [facility] Comment on above: Performed By: #### L [id number] ####[facility] ([facility])[address] [place] [address] POCT GLUCOSE METER UNSOLICIT ED RESULTSon 05-12-2025 Glucose [Mass/Vol] 275 mg/dL High 70-105 [facility] Comment on above: Order Comment: Waive d Testing in the ED is performed under the ED CLIA certificate #[id number]. Result Comment: [email or web address] [email or web address] Performed By: #### L [id number] ####[facility] ([facility])[address] [place] [address] Glucose [Mass/Vol] 285 mg/dL High 70-105 [facility] Comment on above: Order Comment: Waive d Testing in the ED is performed under the ED CLIA certificate #[id number]. Result Comment: nkoc h4 Performed By: #### L [id number] #### [facility] ([facility]) [address] [place] [address] Glucose [Mass/Vol] 332 mg/dL High 70-105 [facility] Comment on above: Order Comment: Waive d Testing in the ED is performed under the ED CLIA certificate #[id number]. Result Comment: nkoc h4 Performed By: #### L [id number] #### [facility] ([facility]) [address] [place] [address] Glucose [Mass/Vol] 214 mg/dL High 70-105 [facility] Comment on above: Order Comment: Waive d Testing in the ED is performed under the ED CLIA certificate #[id number]. Result Comment: nkoc h4 Performed By: #### L [id number] #### [facility] ([facility]) [address] [place] [address] 30on 05-11-2025 30 The patient is Moderately Stable - Low risk of patient condition declining or worsening The patient's goals for the shift include comfort rest The clinical goals for the shift include VSS Over the shift, the patient did not make progress toward the following goals. Barriers to progression include. Recommendations to address these barriers include. Normal [facility] ANTI-XA (HEPARIN LEVEL)on HEPARIN UNFRACTIONATED (U/ML) IN PPP BY CHROMOGENIC METHOD 0.27 IU/mL Low 0.3-0.7 [facility] Comment on above: Result Comment: [place] roxaban and Apixaban will interfere with the anti Xa assay used to monitor UFH and LMWH. Performed By: #### L [id number] #### [facility] ([facility]) [address] [place] [address] HEPARIN UNFRACTIONATED (U/ML) IN PPP BY CHROMOGENIC METHOD 0.38 IU/mL Normal 0.3-0.7 [facility] Comment on above: Result Comment: [place] roxaban and Apixaban will interfere with the anti Xa assay used to monitor UFH and LMWH. Performed By: #### L [id number] ####[facility] ([facility])[address] [place] [address] HEPARIN UNFRACTIONATED (U/ML) IN PPP BY CHROMOGENIC METHOD 0.28 IU/mL Low 0.3-0.7 [facility] Comment on above: Result Comment: Jessica roxaban and Apixaban will interfere with the anti Xa assay used to monitor UFH and LMWH. Performed By: #### L [id number] ####[facility] ([facility])[address] [place] [address] BASIC METABOLIC PANELon 04-16 Anion gap [Moles/Vol] 15 mmol/L Normal 7-20 [place] Comment on above: Performed By: #### L [id number] #### [facility]) [address] [place] [address] Calcium [Mass/Vol] 8.4 mg/dL Low 8.6-10.3 [facility] Comment on above: Performed By: #### L [id number] #### [facility] [address] [place] [address] Chloride [Moles/Vol] 101 mmol/L Normal 98-107 [facility] Comment on above: Performed By: #### L [id number] #### [facility] ([facility]) [address] [place] [address] CO2 [Moles/Vol] 28 mmol/L Normal 21-31 [facility] Comment on above: Performed By: #### L [id number] #### [facility] [address] [place] [address] Creatinine [Mass/Vol] 1.56 mg/dL High 0.70-1.30 [place] Comment on above: Performed By: #### L [id number] #### [facility] ([facility]) [address] [place] [address] GLOMERULAR FILTRATION RATE ML/MIN/1.73 SQ M.PREDICTED 43.0 mL/min/1.73m*2 Low >60.0 [facility] Comment on above: Result Comment: [facility]???s estimated glomerular filtration rate (eGFR) will [...] individuals. Performed By: #### L [id number] #### [facility] ([facility] [address] [place] [address] Glucose [Mass/Vol] 237 mg/dL High 70-100 [facility] Comment on above: Performed By: #### L [id number] #### [facility] ([facility]) [address] [place] [address] Potassium [Moles/Vol] 4.2 mmol/L Normal 3.5-5.1 [facility] Comment on above: Performed By: #### L [id number] #### [facility] ([facility]) [address] [place] [address] Sodium [Moles/Vol] 140 mmol/L Normal 136-145 [facility] Comment on above: Performed By: #### L [id number] #### [facility] ([facility]) [address] [place] [address] Urea nitrogen [Mass/Vol] 31 mg/dL High 7-25 [facility] Comment on above: Performed By: #### L [id number] #### [facility] ([facility]) [address] [place] [address] UREA NITROGEN/CREATININE (MASS RATIO) IN SER/PLAS 19.[address] [facility] Comment on above: Performed By: #### L [id number] #### [facility] ([facility]) [address] [place] [address] CBCon 05-11-2025 Erythrocyte distribution width (RBC) [Ratio] 19.0 % High 11.5-15.0 [facility] Comment on above: Performed By: #### L [id number] #### [facility] ([facility]) [address] [place] [address] ERYTHROCYTE MEAN CORPUSCULAR HEMOGLOBIN CONCENTRATION (G/DL) BY AUTOMATED 31.1 g/dL Low 32.0-35.0 [facility] Comment on above: Performed By: #### L [id number] #### [facility] ([facility]) [address] [place] [address] Hematocrit (Bld) [Volume fraction] 31.8 % Low 39.0-50.0 [facility] Comment on above: Performed By: #### L [id number] #### [facility] ([facility] [address] [place] [address] Hemoglobin (Bld) [Mass/Vol] 9.9 g/dL Low 13.0-17.0 [facility] Comment on above: Performed By: #### L [id number] #### [facility] ([facility]) [address] [place] [address] MCH (RBC) [Entitic mass] 25.8 pg Low 27.0-33.0 [facility] Comment on above: Performed By: #### L [id number] #### [facility] ([facility]) [address] [place] [address] MCV (RBC) [Entitic vol] 82.8 fL Normal 82.0-98.0 [facility] Comment on above: Performed By: #### L [id number] #### [facility] ([facility]) [address] [place] [address] PLATELETS (10*3/UL) IN BLOOD AUTOMATED COUNT 312 10*3/uL Normal 150-400 [facility] Comment on above: Performed By: #### L [id number] #### [facility] ([facility]) [address] [place] [address] RBC (Bld) [#/Vol] 3.84 10*6/uL Low 4.20-5.70 [facility] Comment on above: Performed By: #### L [id number] #### [facility] ([facility]) [address] [place] [address] WBC (Bld) [#/Vol] 11.58 10*3/uL High 4.00-10.60 [facility] Comment on above: Performed By: #### L [id number] #### [facility] ([facility]) [address] [place] [address] CONSULTon 05-11-2025 CONSULT Reason For Consult aortic stenosis Referring Provider: Mesha Hughes MD History Of Present Illness Nadir Beth is a 85 y.o. male presenting with acute on chronic heart failure. He was found to have a BMP greater than [address] Youssef's office in [place] yesterday. He also had signs of congestive [...] leg paresis. He saw Dr. Garcia at [facility] and was told that it was embolic [...] 05/10/25 164 (more content not included)... Normal [facility] CTA ABDOMEN PELVIS W IV CONT KACEYTon [...] seen. Electronically signed: Yenni Stafford MD. Normal [facility] Comment on above: Order Comment: Low d ose (half) contrast HEMOGLOBIN A1Con 05-11-2025 Glucose [Mass/Vol] 220 mg/dL [facility] Comment on above: Performed By: #### L [id number] #### [facility] ([facility]) [address] [place] [address] HbA1c (Bld) [Mass fraction] 9.3 % High 4.0-6.0 [facility] Comment on above: Performed By: #### L [id number] #### [facility] ([facility]) [address] [place] [address] HPon 05-11-2025 HP Reason For Consult aortic stenosis Referring Provider: Mesha Hughes MD History Of Present Illness Nadir Beth is a 85 y.o. male presenting with acute on chronic heart failure. He was found to have a BMP greater than [address] Youssef's office in [place] yesterday. He also had signs of congestive [...] leg paresis. He saw Dr. Garcia at [facility] and was told that it was embolic [...] 05/10/25 164 (more content not included)... Normal [facility] HP H&P reviewed. The patient was examined and there are no changes to the H&P. Will proceed with RHC and coronary angiogram for acute on chronic HFpEF and aortic stenosis work up. Normal [facility] LIPID PANELon 05-11-2025 CHOL/HDL 2.7 mg/dL Normal [facility] Comment on above: Performed By: #### L [id number] ####[facility] ([facility] [place] [address] Cholesterol [Mass/Vol] 187 mg/dL Normal 120-200 [facility] Comment on above: Performed By: #### L [id number] ####[facility] ([facility])[address] [place] [address] Magnesium [Mass/Vol] 93 mg/dL Normal <150 [facility] Comment on above: Result Comment: TRIG LYCERIDE REFERENCE RANGE: 20 YEARS AND OLDER CARDIOVASCULAR RISK LESS THAN 150 mg/dL LOW RISK 150 TO 199 mg/dL BORDERLINE RISK 200 mg/dL AND GREATER HIGH RISK Performed By: #### L [id number] ####[facility] ([facility])[address] [place] [address] Magnesium [Mass/Vol] 99 mg/dL Normal 0-160 [facility] Comment on above: Performed By: #### L [id number] ####[facility] ([facility])[address] [place] [address] Magnesium [Mass/Vol] 69 mg/dL Normal 23-92 [facility] Comment on above: Performed By: #### L [id number] ####[facility] ([facility])[address] [place] [address] NON HDL CHOL. (LDL+VLDL) [address] [facility] Comment on above: Performed By: #### L [id number] ####[facility] ([facility])[address] [place] [address] TOTAL VLDL-C 19 mg/dL Normal 0-40 [facility] Comment on above: Performed By: #### L [id number] ####[facility] ([facility])[address] [place] [address] POCT GLUCOSE METER UNSOLICIT ED RESULTSon 05-11-2025 Glucose [Mass/Vol] 306 mg/dL High 70-105 [facility] Comment on above: Order Comment: Waive d Testing in the ED is performed under the ED CLIA certificate #[id number]. Result Comment: [email or web address] [email or web address] Performed By: #### L [id number] ####[facility] ([facility])[address] [place] [address] Glucose [Mass/Vol] 348 mg/dL High 70-105 [facility] Comment on above: Order Comment: Waive d Testing in the ED is performed under the ED CLIA certificate #[id number]. Result Comment: clar com Performed By: #### L [id number] #### [facility] ([facility]) [address] [place] [address] Glucose [Mass/Vol] 201 mg/dL High 70-105 [facility] Comment on above: Order Comment: Waive d Testing in the ED is performed under the ED CLIA certificate #[id number]. Result Comment: clar com Performed By: #### L [id number] #### [facility] ([facility]) [address] [place] [address] Glucose [Mass/Vol] 224 mg/dL High 70-105 [facility] Comment on above: Order Comment: Kim ellis had pre procedure medications already for cath Result Comment: clar com Performed By: #### L [id number] ####[facility] ([facility])[address] [place] [address] 30on 05-10-2025 30 The patient is Moderately [...] the next 3 months Outcome: Progressing Normal [facility] 30 The patient is Moderately Stable - Low risk of patient condition declining or worsening The patient's goals for the shift include comfort The clinical goals for the shift include VSS Normal [facility] ANTI-XA (HEPARIN LEVEL)on HEPARIN UNFRACTIONATED (U/ML) IN PPP BY CHROMOGENIC METHOD 0.25 IU/mL Low 0.3-0.7 [facility] Comment on above: Result Comment: [place] roxaban and Apixaban will interfere with the anti Xa assay used to monitor UFH and LMWH. Performed By: #### L [id number] #### [facility] ([facility]) [address] [place] [address] HEPARIN UNFRACTIONATED (U/ML) IN PPP BY CHROMOGENIC METHOD 0.21 IU/mL Low 0.3-0.7 [facility] Comment on above: Order Comment: Check anti-Xa level every 6 hours while on heparin infusion, or per protocol. Result Comment: [place] roxaban and Apixaban will interfere with the anti Xa assay used to monitor UFH and LMWH. Performed By: #### L [id number] ####[facility] ([facility])[address] [place] [address] APTTon 05-10-2025 ACTIVATED PARTIAL THROMBOPLASTIN TIME IN PPP BY COAGULATION ASSAY 34.1 Seconds Normal 25.0-35.0 [facility] Comment on above: Order Comment: Basel ine aPTT before initiating heparin infusion. Result Comment: Clin ical significance of the APTT is questionable in the presence of heparin. Performed By: #### L [id number] #### [facility] ([facility]) [address] [place] [address] B-TYPE NATRIURETIC PEPTIDEon 05-10-2025 Natriuretic peptide B (Bld) [Mass/Vol] 736 pg/mL High 0-100 [facility] Comment on above: Performed By: #### L [id number] #### [facility] ([facility]) [address] [place] [address] CBC WITH AUTO DIFFERENTIALon 05-10-2025 Basophils (Bld) [#/Vol] 0.04 10*3/uL Normal 0.00-0.20 [facility] Comment on above: Performed By: #### L [id number] #### [facility] ([facility]) [address] [place] [address] Basophils/100 WBC (Bld) 0.4 % Normal 0.0-1.0 [facility] Comment on above: Performed By: #### L [id number] #### [facility] ([facility]) [address] [place] [address] Eosinophils (Bld) [#/Vol] 0.15 10*3/uL Normal 0.00-0.50 [facility] Comment on above: Performed By: #### L [id number] #### [facility] ([facility]) [address] [place] [address] Eosinophils/100 WBC (Bld) 1.4 % Normal 0.0-6.0 [facility] Comment on above: Performed By: #### L [id number] #### [facility] ([facility]) [address] [place] [address] Erythrocyte distribution width (RBC) [Ratio] 19.2 % High 11.5-15.0 [facility] Comment on above: Performed By: #### L [id number] #### [facility] ([facility]) [address] [place] [address] ERYTHROCYTE MEAN CORPUSCULAR HEMOGLOBIN CONCENTRATION (G/DL) BY AUTOMATED 31.2 g/dL Low 32.0-35.0 [facility] Comment on above: Performed By: #### L [id number] #### [facility] ([facility]) [address] [place] [address] Hematocrit (Bld) [Volume fraction] 33.3 % Low 39.0-50.0 [facility] Comment on above: Performed By: #### L [id number] #### [facility] ([facility]) [address] [place] [address] Hemoglobin (Bld) [Mass/Vol] 10.4 g/dL Low 13.0-17.0 [facility] Comment on above: Performed By: #### L [id number] #### [facility] ([facility]) [address] [place] [address] Immature granulocytes (Bld) [#/Vol] 0.06 10*3/uL Normal 0.00-0.20 [facility] Comment on above: Performed By: #### L [id number] #### [facility] ([facility]) [address] [address] Immature granulocytes/100 WBC (Bld) 0.6 % Normal 0.0-1.0 [facility] Comment on above: Performed By: #### L [id number] #### [facility] [address] [place] [address] Lymphocytes (Bld) [#/Vol] 0.86 10*3/uL Low 1.20-4.00 [facility] Comment on above: Performed By: #### L [id number] #### [facility] ([facility]) [address] [place] [address] Lymphocytes/100 WBC (Bld) 8.2 % Low 20.0-45.0 [facility] Comment on above: Performed By: #### L [id number] #### [facility] ([facility]) [address] [place] [address] MCH (RBC) [Entitic mass] 25.7 pg Low 27.0-33.0 [facility] Comment on above: Performed By: #### L [id number] #### [facility] [address] [place] [address] MCV (RBC) [Entitic vol] 82.2 fL Normal 82.0-98.0 [facility] Comment on above: Performed By: #### L [id number] #### [facility] [address] [place] [address] Monocytes (Bld) [#/Vol] 1.08 10*3/uL High 0.10-1.00 [facility] Comment on above: Performed By: #### L [id number] #### [facility] ([facility]) [address] [place] [address] Monocytes/100 WBC (Bld) 10.3 % Normal 5.0-12.0 [facility] Comment on above: Performed By: #### L [id number] #### [facility] ([facility]) [address] [place] [address] Neutrophils (Bld) [#/Vol] 8.31 10*3/uL High 1.60-7.60 [facility] Comment on above: Performed By: #### L [id number] #### [facility] ([facility]) [address] [place] [address] Neutrophils/100 WBC (Bld) 79.1 % High 40.0-72.0 [facility] Comment on above: Performed By: #### L [id number] #### [facility] ([facility]) [address] [place] [address] NRBC (PER 100 WBCS) BY AUTOMATED COUNT 0.0 % Normal 0 [facility] Comment on above: Performed By: #### L [id number] #### [facility] ([facility]) [address] [place] [address] PLATELETS (10*3/UL) IN BLOOD AUTOMATED COUNT 311 10*3/uL Normal 150-400 [facility] Comment on above: Performed By: #### L [id number] #### [facility] ([facility]) [address] [place] [address] RBC (Bld) [#/Vol] 4.05 10*6/uL Low 4.20-5.70 [facility] Comment on above: Performed By: #### L [id number] #### [facility] ([facility]) [address] [place] [address] WBC (Bld) [#/Vol] 10.50 10*3/uL Normal 4.00-10.60 [facility] Comment on above: Performed By: #### L [id number] #### [facility] ([facility] [address] [place] [address] COMPREHENSIVE METABOLIC PANE Jaren 05-10-2025 Albumin [Mass/Vol] 3.5 g/dL Normal 3.5-5.7 [facility] Comment on above: Performed By: #### L [id number] ####[facility] ([facility] [place] [address] ALP [Catalytic activity/Vol] 72 U/L Normal 34-104 [facility] Comment on above: Performed By: #### L [id number] ####[facility] ([facility])[address] [place] [address] ALT [Catalytic activity/Vol] 7 U/L Normal 7-52 [facility] Comment on above: Performed By: #### L [id number] ####[facility] ([facility])[address] [place] [address] Anion gap [Moles/Vol] 16 mmol/L Normal 7-20 [place] Comment on above: Performed By: #### L [id number] ####[facility] ([facility])[address] [place] [address] AST [Catalytic activity/Vol] 14 U/L Normal 13-39 [facility] Comment on above: Performed By: #### L [id number] ####[facility] ([facility])[address] [place] [address] Bilirubin [Mass/Vol] 0.4 mg/dL Normal 0.3-1.0 [facility] Comment on above: Performed By: #### L [id number] ####[facility] ([facility])[address] [place] [address] Calcium [Mass/Vol] 8.5 mg/dL Low 8.6-10.3 [facility] Comment on above: Performed By: #### L [id number] ####[facility] ([facility])[address] [place] [address] Chloride [Moles/Vol] 101 mmol/L Normal 98-107 [facility] Comment on above: Performed By: #### L [id number] ####[facility] ([facility] [place] [address] CO2 [Moles/Vol] 26 mmol/L Normal 21-31 [facility] Comment on above: Performed By: #### L [id number] ####[facility] ([facility])[address] [place] [address] Creatinine [Mass/Vol] 1.45 mg/dL High 0.70-1.30 [place] Comment on above: Performed By: #### L [id number] ####[facility] ([facility])[address] [place] [address] GLOMERULAR FILTRATION RATE ML/MIN/1.73 SQ M.PREDICTED 46.9 mL/min/1.73m*2 Low >60.0 [facility] Comment on above: Result Comment: [facility]???s estimated glomerular filtration rate (eGFR) will [...] of individuals. Performed By: #### L [id number] ####[facility] ([facility])[address] [place] [address] Glucose [Mass/Vol] 156 mg/dL High 70-100 [facility] Comment on above: Performed By: #### L [id number] ####[facility] ([facility])[address] [place] [address] Potassium [Moles/Vol] 3.6 mmol/L Normal 3.5-5.1 [place] Comment on above: Performed By: #### L [id number] ####[facility] ([facility])[address] [facility] [place] [address] Protein [Mass/Vol] 6.2 g/dL Normal 6.0-8.3 [facility] Comment on above: Performed By: #### L [id number] ####[facility] ([facility])[address] [facility] [place] [address] Sodium [Moles/Vol] 139 mmol/L Normal 136-145 [facility] Comment on above: Performed By: #### L [id number] ####[facility] ([facility])[address] [place] [address] Urea nitrogen [Mass/Vol] 28 mg/dL High 7-25 [facility] Comment on above: Performed By: #### L [id number] ####[facility] ([facility])[address] [place] [address] UREA NITROGEN/CREATININE (MASS RATIO) IN SER/PLAS 19.[address] [facility] Comment on above: Performed By: #### L [id number] ####[facility] ([facility])[address] [place] [address] CONSULTon 05-10-2025 CONSULT discharge planning: to return to [facility] Patient came to this admission from [facility]. - Occupational Therapy Eval noting Patient is able to return to prior living environment - Physical Therapy Eval noting Patient is able to return to prior living environment - LDAs tab not listing any open wounds or closed skin issues - I/O wVital flowsheet noting Patient on Room Air at this [facility] - PC to [facility] confirmed Patient is from their facility, specifically their [facility] unit (not ECF or WAN) discharge barriers: [] no insurance precert needed for any placement from this admission [] Normal [facility] CONSULT -- Attestation signed by Azeem Green MD at 05/10/2025 7:15 PM I personally saw and evaluated the patient on rounds with the medical assisting program director and agree with his assessment and plan as documented in the progress note from today Cardiology Consult Note Reason for Consult: Acute on chronic HFpEF, hypertensive urgency HPI: Nadir Beth is a 85 y.o. male with past medical history of A-fib on Xarelto, hypertension, HFpEF, CKD, recent history of CVA 4 months back, renal artery stenosis transferred from [facility] for acute on chronic heart failure. Patient had history of stroke 4 months back and was in rehab patient has been having progressive lower extremity edema for few days. Patient was advised to increase his Lasix from 20 to 40 mg and blood work was done which showed BNP 6214 and was advised to go to the ED. In [place] ED chest x-ray showed pulmonary vascular congestion [...] flat. Palp (more content not included)... Normal [facility] CONSULT Adult Nutrition Assessment: Name: Nadir Beth [...] 05/10/2025453 CREATININE 1.45 (H) 05/10/2025453 NA 139 05/10/2025453 K 3.6 05/10/2025453 MG [...] of Nutrition and Dietetics (AND) and the [place] Society of Enteral and Parenteral Nutrition (ASPEN). [...] To reach the Clinical Dietitian, please utilize [employer] chat Wednesday-Wednesday from 8AM-4PM or call extension [phone]. For weekends (Wednesday-Wednesday) and holidays, the Clinical Dietitian can be reached via pager [phone]) from 9AM-3PM. The Clinical Nutrition Department is unable to respond to [employer] chat messages on Sundays and s. [1] History reviewed. No pertinent past medical history. [2] Allergies Allergen Reactions Aminolevulinic Acid Hcl Unknown Iodinated Contrast Media Unknown Nitroglycerin Other hypotension Simvastatin Unknown Normal [facility] Documentationon 05-10-2025 Documentation [id number] Nadir Beth 1940 M Date Provider Department Center 05/10/202527877-VMOSFOSUSANA KAUFFMAN [facility] INT MED Comprehensiv Family History Problem Relation Age of Onset Coronary artery disease Father Family Status - Relation Status Age at Mother Father Normal [facility] HIGH SENSITIVITY TROPONIN Io n 05-10-2025 HS TROPONIN I (NG/L) 26 ng/L High <20 [facility] Comment on above: Performed By: #### L [id number] ####[facility] ([facility])[address] [place] [address] HS TROPONIN I (NG/L) 21 ng/L High <20 [facility] Comment on above: Performed By: #### L [id number] ####[facility] ([facility])[address] [place] [address] HS TROPONIN I (NG/L) 21 ng/L High <20 [facility] Comment on above: Performed By: #### L [id number] ####[facility] ([facility])[address] [place] [address] [facility] 05-10-2025 -- Attestation signed by Azeem Green MD at 05/10/2025 7:15 PM I personally saw and evaluated the patient on rounds with the medical assisting program director and agree with his assessment and plan as documented in the progress note from today Cardiology Consult Note Reason for Consult: Acute on chronic HFpEF, hypertensive urgency HPI: Nadir Beth is a 85 y.o. male with past medical history of A-fib on Xarelto, hypertension, HFpEF, CKD, recent history of CVA 4 months back, renal artery stenosis transferred from [facility] for acute on chronic heart failure. Patient had history of stroke 4 months back and was in rehab patient has been having progressive lower extremity edema for few days. Patient was advised to increase his Lasix from 20 to 40 mg and blood work was done which showed BNP 6214 and was advised to go to the ED. In [place] ED chest x-ray showed pulmonary vascular congestion [...] flat. Palp (more content not included)... Normal [facility] MAGNESIUMon 05-10-2025 Magnesium [Mass/Vol] 2.0 mg/dL Normal 1.9-2.7 [facility] Comment on above: Performed By: #### L [id number] ####[facility] ([facility])[address] [place] [address] PLATELET COUNTon 05-10-2025 PLATELETS (10*3/UL) IN BLOOD AUTOMATED COUNT 349 10*3/uL Normal 150-400 [facility] Comment on above: Performed By: #### L [id number] #### [facility] ([facility]) [address] [place] [address] POCT GLUCOSE METER UNSOLICIT ED RESULTSon 05-10-2025 Glucose [Mass/Vol] 237 mg/dL High 70-105 [facility] Comment on above: Order Comment: Waive d Testing in the ED is performed under the ED CLIA certificate #[id number]. Result Comment: devon [email or web address] Performed By: #### L [id number] #### [facility] ([facility]) [address] [place] [address] Glucose [Mass/Vol] 159 mg/dL High 70-105 [facility] Comment on above: Order Comment: Waive d Testing in the ED is performed under the ED CLIA certificate #[id number]. Result Comment: iseg [email or web address] Performed By: #### L [id number] #### [facility] ([facility]) [address] [place] [address] Glucose [Mass/Vol] 172 mg/dL High 70-105 [facility] Comment on above: Order Comment: Waive d Testing in the ED is performed under the ED CLIA certificate #[id number]. Result Comment: iseg ura2 Performed By: #### L [id number] ####[facility] ([facility])[address] [place] [address] Glucose [Mass/Vol] 186 mg/dL High 70-105 [facility] Comment on above: Order Comment: Waive d Testing in the ED is performed under the ED CLIA certificate #[id number]. Result Comment: iseg ura2 Performed By: #### L [id number] #### [facility] ([facility] [address] [place] [address] TSH3 REFLEX TO FT4on 025 THYROTROPIN (MIU/L) IN SER/PLAS BY DETECTION LIMIT <= 0.05 MIU/L 1.34 mIU/L Normal 0.34-5.60 [facility] Comment on above: Performed By: #### L [id number] #### [facility] ([facility]) [address] [place] [address] 36on 05-08-2025 36 Patient is reschedul ed for 07/11. Normal [facility] 36on 05-04-2025 36 Lvm to reschedule patients nephrology appointment. Advised at this time, the appointment will be cancelled and to call back to reschedule. Normal [facility] Telephoneon 05-04-2025 Telephone [id number] Nadir lin Joy 1940 M Date Provider Department Center 05/04/2025 RUTHIE OWEN [facility] NEPHRO Comprehensiv Family History Problem Relation Age of Onset Coronary artery disease Father Family Status - Relation Status Age at Mother Father Normal [facility] Coding Queryon 05-02-2025 Coding Query Coding Query From: Alberto RN, Lay To: Anai URIARTE; Cc: Ginny Talamantes; Sent: 04/30/2025 07:31:14 EDT ! 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 Normal [facility] Coding Query Coding Query From: Lay Dominguez [...] , M CKD stage 3B Normal [facility] Coding Query Coding Query From: Alberto OTERO, [...] lower leg limited to skin POA Normal [facility] Office Visiton 04-30-2025 Follow-up visit [id number] Nadir Beth 1940 M Date Provider Department Center 04/30/2025 CLARIBEL VILLALOBOS [facility] Alberto [facility] Family History Problem Relation Age of Onset Coronary artery disease Father Family Status - Relation Status Age at Mother Father Level of Service:23529 [place] OFFICE/OUTPATIENT ESTABLISHED MOD MDM 30 MIN [facility] 36on 04-23-2025 36 Spoke with patient's daughter and scheduled him an apt to see Dr. Cisneros on 05/03/2025. [facility] 36on 04-18-2025 36 Patient's daughter called to make you aware he had a stroke and was admitted to [facility]. He will be discharged today to SNF. He's scheduled for heart cath with you 05/10. Daughter wants to know if you still want him to have this or if he needs pushed out? Do you need to see him prior to this? Please advise. [facility]. [facility] Anion gap [Moles/Vol] 12 mmol/L Normal 04-30 [facility] Comment on above: Performed By: #### 2 [id number] #### [facility] [address] [place] [address] BUN/Creat Ratio 22 No Units High 10-20 [facility] Comment on above: Performed By: #### 2 [id number] #### [facility] [address] [place] [address] Calcium [Mass/Vol] 8.7 mg/dL Low 8.9-11.1 [facility] Comment on above: Performed By: #### 2 [id number] #### [facility] [address] [place] [address] Chloride [Moles/Vol] 102 mmol/L Normal 101-111 [facility] Comment on above: Performed By: #### 2 [id number] #### [facility] [address] [place] [address] CO2 [Moles/Vol] 27 mmol/L Normal 21-31 [facility] Comment on above: Performed By: #### 2 [id number] #### [facility] [address] [place] [address] Creatinine [Mass/Vol] 1.6 mg/dL High 0.5-1.3 [facility] Comment on above: Performed By: #### 2 [id number] #### [facility] [address] [place] [address] Glucose [Mass/Vol] 233 mg/dL High 55-199 [facility] Comment on above: Performed By: #### 2 [id number] #### [facility] [address] [place] [address] Potassium [Moles/Vol] 4.3 mmol/L Normal 3.5-5.3 [facility] Comment on above: Performed By: #### 2 [id number] #### [facility] [address] [place] [address] Sodium [Moles/Vol] 137 mmol/L Normal 135-145 [facility] Comment on above: Performed By: #### 2 [id number] #### [facility] [address] [place] [address] Urea nitrogen [Mass/Vol] 35 mg/dL High 5-21 [facility] Comment on above: Performed By: #### 2 [id number] #### [facility] [address] [place] [address] CBC w/ Auto Diffon 5 Basophil Absolute 0.0 E9/L Normal 0.0-0.2 [facility] Comment on above: Performed By: #### 2 714029 #### [facility] [address] [place] [address] Basophils/100 WBC (Bld) 0.4 % Normal 0.0-2.0 [facility] Comment on above: Performed By: #### 2 [id number] #### [facility] [address] [place] [address] Eos Absolute 0.2 E9/L Normal 0.0-0.5 [facility] Comment on above: Performed By: #### 2 694369 #### [facility] [address] [place] [address] Eosinophils/100 WBC (Bld) 2.3 % Normal 0.0-8.0 [facility] Comment on above: Performed By: #### 2 196216 #### [facility] [address] [place] [address] Erythrocyte distribution width (RBC) [Ratio] 20.0 % High 10.9-14.2 [facility] Comment on above: Performed By: #### 2 [id number] #### [facility] [address] [place] [address] Hematocrit (Bld) [Volume fraction] 33.0 % Low 37.7-49.0 [facility] Comment on above: Performed By: #### 2 930204 #### [facility] [address] [place] [address] Hemoglobin (Bld) [Mass/Vol] 10.6 g/dL Low 13.5-17.5 [facility] Comment on above: Performed By: #### 2 [id number] #### [facility] [address] [place] [address] Lymph Absolute 0.7 E9/L Low 1.0-4.0 [facility] Comment on above: Performed By: #### 2 500324 #### [facility] [address] [place] [address] Lymphocytes/100 WBC (Bld) 9.6 % Low 14.0-50.0 [facility] Comment on above: Performed By: #### 2 [id number] #### [facility] [address] [place] [address] MCH (RBC) [Entitic mass] 27.3 pg Normal 27.0-34.0 [facility] Comment on above: Performed By: #### 2 679161 #### [facility] [address] [place] [address] MCHC (RBC) [Mass/Vol] 32.2 g/dL Normal 31.4-36.0 [facility] Comment on above: Performed By: #### 2 599575 #### [facility] [address] [place] [address] MCV (RBC) [Entitic vol] 84.6 fL Normal 80.0-100.0 [facility] Comment on above: Performed By: #### 2 650476 #### [facility] [address] [place] [address] Moffat Absolute 0.9 E9/L Normal 0.2-1.0 [facility] Comment on above: Performed By: #### 2 722635 #### [facility] [address] [place] [address] Monocytes/100 WBC (Bld) 11.6 % Normal 4.0-14.0 [facility] Comment on above: Performed By: #### 2 453948 #### [facility] [address] [place] [address] Neutro Absolute 5.7 E9/L Normal 2.0-7.5 [facility] Comment on above: Performed By: #### 2 [id number] #### [facility] [address] [place] [address] Neutro Auto 76.1 % High 36.0-75.0 [facility] Comment on above: Performed By: #### 2 240143 #### [facility] [address] [place] [address] Platelet 234.0 E9/L Normal 150.0-500.0 [facility] Comment on above: Performed By: #### 2 193687 #### [facility] [address] [place] [address] Platelet mean volume (Bld) [Entitic vol] 9.0 fL Normal 6.4-10.8 [facility] Comment on above: Performed By: #### 2 278919 #### [facility] [address] [place] [address] RBC 3.9 E12/L Low 4.3-5.9 [facility] Comment on above: Performed By: #### 2 303797 #### [facility] [address] [place] [address] WBC 7.5 E9/L Normal 4.0-11.0 [facility] Comment on above: Performed By: #### 2 585150 #### [facility] [address] [place] [address] CHEMISTRYOrdered By: Lab ROP User on 04-18-2025 Glucose [Mass/Vol] 204 mg/dL High 55 - 99 mg/dL [facility] POC Subsection Comment on above: Result Comment: Tommie HAGEN POC Device SN [id number] Invalid Interpretation Code [facility] POC Subsection POC Username BOGDAN WORKMAN Invalid Interpretation Code [facility] POC Subsection Sodium [Moles/Vol] [id number] mmol/L Invalid Interpretation Code [facility] POC Subsection Glucose [Mass/Vol] 212 mg/dL High 55 - 99 mg/dL [facility] POC Subsection Comment on above: Result Comment: Tommie HAGEN POC Device SN [id number] Invalid Interpretation Code [facility] POC Subsection POC Username BOGDAN WORKMAN Invalid Interpretation Code [facility] POC Subsection Sodium [Moles/Vol] [id number] mmol/L Invalid Interpretation Code [facility] POC Subsection CHEMISTRYOrdered By: SYSTEM [...] 06-0 Glucose [Mass/Vol] 204 mg/dL High 55-99 [facility] Comment on above: Result Comment: Tommie cortes RN/ Performed By: #### 2 [id number] ####[facility] [address] [place] [address] Glucose [Mass/Vol] 212 mg/dL High 55-99 [facility] Comment on above: Result Comment: Tommie HAGEN Performed By: #### 2 [id number] #### [facility] [address] [place] [address] Discharge Note-Nursingon Discharge Note-Nursing Discharge Note-Nursing NADIR BETH :1940 Visit Date:04/14/2025 Inpatient Discharge Instructions Your Care Team Admitting Physician - Layne VERDUGO DO Consulting Physician - Clover Walker MD [facility] Wound, XXXX Reason for Your [...] SHARA HENDERSON, LU Sweet Where: [facility] [address] [place] [address]- New Follow Up Appointments after Discharge Follow Up with Neurology When: Within 2 to 4 weeks Comments: Call for followup appointment Where: [phone] Medications What How Much When Why Instructions [...] day 04/19/2025 (more content not included)... Normal [facility] HEMATOLOGYOrdered By: SYSTEM SYSTEM on 04-18-2025 Basophils/100 [...] 04-18-2025 Inpatient Clinical Summary Inpatient Clinical Summary [place] [address] Clinical Summary Person Information: Name: NADIR BETH Age: 85 Years : 1940 Sex: Male PCP: Van Youssef MD Marital Status: Race: White Ethnicity: Non- or Language: Uruguayan Visit Id: Visit Reason: Altered mental status; Headache; Potential stroke; stroke Speciality: Acuity: Enc Type: Inpatient Med Service: Medical Arrival: 04/14/2025 16:53:36 Discharge: Dispo Type: Admitted as IP to this Hosp Address: [address] [place] [address] [id number] Provider Notes: Diagnosis: 1:CVA (cerebrovascular accident); 2:Atrial [...] Physician: Layne VERDUGO DO Consulting Physician: Clover Walkre MD; [facility] Wound, XXXX Referring Physician: Follow up: With: Address: When: Neurology [phone] Within 2 to 4 weeks Comments: Call for followup appointment Type Location Start [place] [facility] Office Visit [facility] [place] 06/11/2025 11:40 AM 06/11/2025 12:00 PM Confirmed Patient Education Information: Type 2 Diabetes Mellitus, Diagnosis, Adult; Atrial Fibrillation; Core Measures: Stroke (Cerebrovascular Accident) [facility], (Custom) Normal [facility] Inpatient Patient Summaryon 04-18-2025 Inpatient Patient Summary Inpatient Patient Summary [address] [address] Patient Discharge Instructions PERSON INFORMATION [...] None Follow up: With: Address: When: Neurology [phone] Within 2 to 4 weeks Comments: Call for followup appointment In the event that this physician does not participate in your insurance network, please consult with your insurance company to find a nearby participating provider. Type Location Start [facility] [place] Office Visit [facility] [place] 06/11/2025 11:40 AM 06/11/2025 12:00 PM Confirmed [...] ___ omepra (more content not included)... Normal [facility] Interdisciplinary Note - Zachery e Manageron 04-18-2025 Interdisciplinary Note - Coder Interdisciplinary Note - Coder Patient awake and alert eating breakfast in bed. and dtr at bedside. Patient has been accepted to [facility], patient has completed 3MN and can dc when medically clear. and daughter will transport [place]. Patient will dc today. Denies any further concerns. Normal [facility] Comment on above: Result Comment: Elec tronically Signed By: Jihan De Oliveira\.br\Date and Time Signed: 04/18/25 09:36 EDT eGFRon 04-18-2025 eGFR 42 mL/min/1.73 m2 Low >=59 [facility] Comment on above: Performed By: #### 1 [id number] #### [facility] [address] [place] [address] BMPon 04-17-2025 Anion gap [Moles/Vol] 15 mmol/L Normal 6-16 [facility] Comment on above: Performed By: #### 2 [id number] #### [facility] [address] [place] [address] BUN/Creat Ratio 21 No Units High 10-20 [facility] Comment on above: Performed By: #### 2 [id number] #### [facility] [address] [place] [address] Calcium [Mass/Vol] 8.8 mg/dL Low 8.9-11.1 [facility] Comment on above: Performed By: #### 2 [id number] #### [facility] [address] [place] [address] Chloride [Moles/Vol] 104 mmol/L Normal 101-111 [facility] Comment on above: Performed By: #### 2 [id number] #### [facility] [address] [place] [address] CO2 [Moles/Vol] 26 mmol/L Normal 21-31 [facility] Comment on above: Performed By: #### 2 [id number] #### [facility] [address] [place] [address] Creatinine [Mass/Vol] 1.6 mg/dL High 0.5-1.3 [facility] Comment on above: Performed By: #### 2 [id number] #### [facility] [address] [place] [address] Glucose [Mass/Vol] 222 mg/dL High 55-199 [facility] Comment on above: Performed By: #### 2 [id number] #### [facility] [address] [place] [address] Potassium [Moles/Vol] 4.1 mmol/L Normal 3.5-5.3 [facility] Comment on above: Performed By: #### 2 [id number] #### [facility] [address] [place] [address] Sodium [Moles/Vol] 141 mmol/L Normal 135-145 [facility] Comment on above: Performed By: #### 2 [id number] #### [facility] [address] [place] [address] Urea nitrogen [Mass/Vol] 34 mg/dL High 5-21 [facility] Comment on above: Performed By: #### 2 [id number] #### [facility] [address] [place] [address] CBC w/ Auto Diffon 5 Basophil Absolute 0.1 E9/L Normal 0.0-0.2 [facility] Comment on above: Performed By: #### 2 [id number] #### [facility] [address] [place] [address] Basophils/100 WBC (Bld) 0.6 % Normal 0.0-2.0 [facility] Comment on above: Performed By: #### 2 [id number] #### [facility] [address] [place] [address] Eos Absolute 0.1 E9/L Normal 0.0-0.5 [facility] Comment on above: Performed By: #### 2 [id number] #### [facility] [address] [place] [address] Eosinophils/100 WBC (Bld) 0.6 % Normal 0.0-8.0 [facility] Comment on above: Performed By: #### 2 [id number] #### [facility] [address] [place] [address] Erythrocyte distribution width (RBC) [Ratio] 20.3 % High 10.9-14.2 [facility] Comment on above: Performed By: #### 2 [id number] #### [facility] [address] [place] [address] Hematocrit (Bld) [Volume fraction] 34.9 % Low 37.7-49.0 [facility] Comment on above: Performed By: #### 2 [id number] #### [facility] [address] [place] [address] Hemoglobin (Bld) [Mass/Vol] 11.2 g/dL Low 13.5-17.5 [facility] Comment on above: Performed By: #### 2 [id number] #### [facility] [address] [place] [address] Lymph Absolute 0.7 E9/L Low 1.0-4.0 [facility] Comment on above: Performed By: #### 2 [id number] #### [facility] [address] [place] [address] Lymphocytes/100 WBC (Bld) 7.1 % Low 14.0-50.0 [facility] Comment on above: Performed By: #### 2 [id number] #### [facility] [address] [place] [address] MCH (RBC) [Entitic mass] 27.5 pg Normal 27.0-34.0 [facility] Comment on above: Performed By: #### 2 [id number] #### [facility] [address] [place] [address] MCHC (RBC) [Mass/Vol] 32.2 g/dL Normal 31.4-36.0 [facility] Comment on above: Performed By: #### 2 477323 #### [facility] [address] [place] [address] MCV (RBC) [Entitic vol] 85.4 fL Normal 80.0-100.0 [facility] Comment on above: Performed By: #### 2 [id number] #### [facility] [address] [place] [address] Moffat Absolute 1.4 E9/L High 0.2-1.0 [facility] Comment on above: Performed By: #### 2 [id number] #### [facility] [address] [place] [address] Monocytes/100 WBC (Bld) 13.7 % Normal 4.0-14.0 [facility] Comment on above: Performed By: #### 2 [id number] #### [facility] [address] [place] [address] Neutro Absolute 7.7 E9/L High 2.0-7.5 [facility] Comment on above: Performed By: #### 2 [id number] #### [facility] [address] [place] [address] Neutro Auto 78.0 % High 36.0-75.0 [facility] Comment on above: Performed By: #### 2 [id number] #### [facility] [address] [place] [address] Platelet 237.0 E9/L Normal 150.0-500.0 [facility] Comment on above: Performed By: #### 2 [id number] #### [facility] [address] [place] [address] Platelet mean volume (Bld) [Entitic vol] 9.1 fL Normal 6.4-10.8 [facility] Comment on above: Performed By: #### 2 [id number] #### [facility] [address] [place] [address] RBC 4.1 E12/L Low 4.3-5.9 [facility] Comment on above: Performed By: #### 2 843922 #### [facility] [address] [place] [address] WBC 9.9 E9/L Normal 4.0-11.0 [facility] Comment on above: Performed By: #### 2 [id number] #### [facility] [address] [place] [address] CHEMISTRYOrdered By: Lab ROP User on 04-17-2025 Glucose [Mass/Vol] 203 mg/dL High 55 - 99 mg/dL [facility] POC Subsection Comment on above: Result Comment: Tommie cortes RN/ POC Device SN [id number] Invalid Interpretation Code [facility] POC Subsection POC Username JIMENA RIBEIRO Invalid Interpretation Code [facility] POC Subsection Sodium [Moles/Vol] [id number] mmol/L Invalid Interpretation Code [facility] POC Subsection CHEMISTRYOrdered By: SYSTEM [...] 06-0 Glucose [Mass/Vol] 203 mg/dL High 55-99 [facility] Comment on above: Result Comment: Tommie HAGEN Performed By: #### 2 [id number] #### [facility] [address] [place] [address] Glucose [Mass/Vol] 240 mg/dL High 55-99 [facility] Comment on above: Result Comment: Tommie HAGEN Performed By: #### 2 [id number] #### [facility] [address] [place] [address] Glucose [Mass/Vol] 304 mg/dL High 55-99 [facility] Comment on above: Result Comment: Tommie HAGEN Performed By: #### 2 [id number] #### [facility] [address] [place] [address] Glucose [Mass/Vol] 191 mg/dL High 55-99 [facility] Comment on above: Result Comment: Tommie HAGEN Performed By: #### 2 [id number] #### [facility] [address] [place] [address] Coding Queryon 04-17-2025 Coding Query Coding Query [...] on Chronic Diastolic (Preserved EF) Heart Failure [facility] Coding Query Coding Query From: Tanesha [...] __]Demand Ischemia (without a myocardial infarction) Normal [facility] HEMATOLOGYOrdered By: SYSTEM SYSTEM on 04-17-2025 Basophils/100 [...] Zachery e Manageron 04-17-2025 Interdisciplinary Note - Coder Interdisciplinary Note - Coder Patient awake and alert eating breakfast in bed. and dtr at bedside. Patient has been accepted to [facility], patient has completed 3MN and can dc when medically clear. and dtr unsure if they will transport patient or if they will need transport set up. Dtr states she would like to see how patient does with PT first. Denies any further concerns. Family will transport patient to [facility]. Normal [facility] Comment on above: Result Comment: Elec tronically Signed By: Jihan De Oliveira\.br\Date and Time Signed: 04/17/25 10:54 EDT Interdisciplinary Note - Coder Interdisciplinary Note - Coder Patient awake and alert eating breakfast in bed. and dtr at bedside. Patient has been accepted to [facility], patient has completed 3MN and can dc when medically clear. and dtr unsure if they will transport patient or if they will need transport set up. Dtr states she would like to see how patient does with PT first. Denies any further concerns. Normal [facility] Comment on above: Result Comment: Elec tronically Signed By: Jihan De Oliveira\.br\Date and Time Signed: 04/17/25 08:41 EDT RPR with Conf Rfxon 04-17-20 25 RPR Qual Non-Reactive Invalid Interpretation Code Non Reactive [facility] Comment on above: Result Comment: Perf ormed at: [facility] [address] [id number] PhD Huan Vyas Performed By: #### 1 [id number] #### [facility] [address] [place] [address] eGFRon 04-17-2025 eGFR 42 mL/min/1.73 m2 Low >=59 [facility] Comment on above: Performed By: #### 1 [id number] #### [facility] [address] [place] [address] BMPon 04-16-2025 Anion gap [Moles/Vol] 18 mmol/L High 6-16 [facility] Comment on above: Performed By: #### 2 [id number] #### [facility] [address] [place] [address] BUN/Creat Ratio 19 No Units Normal 10-20 [facility] Comment on above: Performed By: #### 2 [id number] #### [facility] [address] [place] [address] Calcium [Mass/Vol] 9.2 mg/dL Normal 8.9-11.1 [facility] Comment on above: Performed By: #### 2 [id number] #### [facility] [address] [place] [address] Chloride [Moles/Vol] 103 mmol/L Normal 101-111 [facility] Comment on above: Performed By: #### 2 [id number] #### [facility] [address] [place] [address] CO2 [Moles/Vol] 24 mmol/L Normal 21-31 [facility] Comment on above: Performed By: #### 2 549376 #### [facility] [address] [place] [address] Creatinine [Mass/Vol] 1.7 mg/dL High 0.5-1.3 [facility] Comment on above: Performed By: #### 2 540598 #### [facility] [address] [place] [address] Glucose [Mass/Vol] 212 mg/dL High 55-199 [facility] Comment on above: Performed By: #### 2 059946 #### [facility] [address] [place] [address] Potassium [Moles/Vol] 3.9 mmol/L Normal 3.5-5.3 [facility] Comment on above: Performed By: #### 2 [id number] #### [facility] [address] [place] [address] Sodium [Moles/Vol] 141 mmol/L Normal 135-145 [facility] Comment on above: Performed By: #### 2 453254 #### [facility] [address] [place] [address] Urea nitrogen [Mass/Vol] 33 mg/dL High 5-21 [facility] Comment on above: Performed By: #### 2 151364 #### [facility] [address] [place] [address] CBC w/ Auto Diffon 5 Basophil Absolute 0.0 E9/L Normal 0.0-0.2 [facility] Comment on above: Performed By: #### 2 176306 #### [facility] [address] [place] [address] Basophils/100 WBC (Bld) 0.1 % Normal 0.0-2.0 [facility] Comment on above: Performed By: #### 2 029970 #### [facility] [address] [place] [address] Eos Absolute 0.0 E9/L Normal 0.0-0.5 [facility] Comment on above: Performed By: #### 2 496865 #### [facility] [address] [place] [address] Eosinophils/100 WBC (Bld) 0.2 % Normal 0.0-8.0 [facility] Comment on above: Performed By: #### 2 535106 #### [facility] [address] [place] [address] Erythrocyte distribution width (RBC) [Ratio] 20.4 % High 10.9-14.2 [facility] Comment on above: Performed By: #### 2 007352 #### [facility] [address] [place] [address] Hematocrit (Bld) [Volume fraction] 37.2 % Low 37.7-49.0 [facility] Comment on above: Performed By: #### 2 [id number] #### [facility] [address] [place] [address] Hemoglobin (Bld) [Mass/Vol] 11.9 g/dL Low 13.5-17.5 [facility] Comment on above: Performed By: #### 2 177005 #### [facility] [address] [place] [address] Lymph Absolute 0.7 E9/L Low 1.0-4.0 [facility] Comment on above: Performed By: #### 2 334232 #### [facility] [address] [place] [address] Lymphocytes/100 WBC (Bld) 4.6 % Low 14.0-50.0 [facility] Comment on above: Performed By: #### 2 028259 #### [facility] [address] [place] [address] MCH (RBC) [Entitic mass] 27.2 pg Normal 27.0-34.0 [facility] Comment on above: Performed By: #### 2 321121 #### [facility] [address] [place] [address] MCHC (RBC) [Mass/Vol] 32.0 g/dL Normal 31.4-36.0 [facility] Comment on above: Performed By: #### 2 [id number] #### [facility] [address] [place] [address] MCV (RBC) [Entitic vol] 84.9 fL Normal 80.0-100.0 [facility] Comment on above: Performed By: #### 2 596659 #### [facility] [address] [place] [address] Moffat Absolute 1.6 E9/L High 0.2-1.0 [facility] Comment on above: Performed By: #### 2 [id number] #### [facility] [address] [place] [address] Monocytes/100 WBC (Bld) 10.8 % Normal 4.0-14.0 [facility] Comment on above: Performed By: #### 2 011790 #### [facility] [address] [place] [address] Neutro Absolute 12.3 E9/L High 2.0-7.5 [facility] Comment on above: Performed By: #### 2 [id number] #### [facility] [address] [place] [address] Neutro Auto 84.3 % High 36.0-75.0 [facility] Comment on above: Performed By: #### 2 [id number] #### [facility] [address] [place] [address] Platelet 268.0 E9/L Normal 150.0-500.0 [facility] Comment on above: Performed By: #### 2 565656 #### [facility] [address] [place] [address] Platelet mean volume (Bld) [Entitic vol] 8.7 fL Normal 6.4-10.8 [facility] Comment on above: Performed By: #### 2 092626 #### [facility] [address] [place] [address] RBC 4.4 E12/L Normal 4.3-5.9 [facility] Comment on above: Performed By: #### 2 359263 #### [facility] [address] [place] [address] WBC 14.6 E9/L High 4.0-11.0 [facility] Comment on above: Performed By: #### 2 939715 #### [facility] [address] [place] [address] CHEMISTRYOrdered By: SYSTEM SYSTEM on 04-16-2025 Anion [...] POCon Glucose [Mass/Vol] 265 mg/dL High 55-99 [facility] Comment on above: Result Comment: Tommie HAGEN Performed By: #### 2 [id number] #### [facility] [address] [place] [address] Glucose [Mass/Vol] 246 mg/dL High 55-99 [facility] Comment on above: Result Comment: Tommie HAGEN Performed By: #### 2 [id number] #### [facility] [address] [place] [address] Glucose [Mass/Vol] 294 mg/dL High 55-99 [facility] Comment on above: Result Comment: Tommie HAGEN Performed By: #### 2 [id number] #### [facility] [address] [place] [address] Glucose [Mass/Vol] 195 mg/dL High 55-99 [facility] Comment on above: Result Comment: Tommie HAGEN Performed By: #### 2 [id number] #### [facility] [address] [place] [address] Coding Queryon 04-16-2025 Coding Query Coding Query [...] desired or expected. Thank you!tanesha 6396 Normal [facility] HEMATOLOGYOrdered By: SYSTEM SYSTEM on 04-16-2025 Basophils/100 [...] High 4.0 - 11.0 E9/L Remisol Heme [id number] 04-16-2025 HbA1c (Bld) [Mass fraction] 9.9 % High <=5.9 [facility] Comment on above: Performed By: #### 7 [id number] #### [facility] [address] [place] [address] Inpatient Clinical Summaryon 04-16-2025 Inpatient Clinical Summary Inpatient Clinical Summary [address] [address] Clinical Summary Person Information: Name: NADIR BETH Age: 85 Years : 1940 Sex: Male PCP: Van Youssef MD Marital Status: Race: White Ethnicity: Non- or Language: Uruguayan Visit Id: Visit Reason: Altered mental status; Headache; Potential stroke; stroke Speciality: Acuity: Enc Type: Inpatient Med Service: Medical Arrival: 04/14/2025 16:53:36 Discharge: Dispo Type: Admitted as IP to this Hosp Address: [address] [place] [phone] Provider Notes: Diagnosis: 1:CVA (cerebrovascular accident); 2:Atrial [...] VERDUGO DO Consulting Physician: Clover Walker MD; [facility] Cardio, XXXX; [facility] Wound, XXXX Referring Physician: Follow up: With: Address: When: Neurology [phone] Within 2 to 4 weeks Comments: Call for followup a (more content not included)... Normal [facility] Inpatient Patient Summaryon 04-16-2025 Inpatient Patient Summary Inpatient Patient Summary [place] [address] Patient Discharge Instructions PERSON INFORMATION Name: NADIR [...] results: Follow up: With: Address: When: Neurology [phone] Within 2 to 4 weeks Comments: Call for followup appointment In the event that this physician does not participate in your insurance network, please consult with your insurance company to find a nearby participating provider. Type Location Start [facility] Office Visit [facility] [place] 06/11/2025 11:40 AM 06/11/2025 12:00 PM Confirmed [...] day. La (more content not included)... Normal [facility] Interdisciplinary Note - Zachery e Manageron 04-16-2025 Interdisciplinary Note - Coder Interdisciplinary Note - Coder CRM to room 202 Patient is awake, [...] and pericardial effusion. Patient is assigned to [facility], see notes. Patient has wound, cardiology and neurology on case. Patient is pending MRI. He is getting an ECHO now. Patient has recs from therapy for SNF. Patient spouse would like him referred to [facility]. Patient can DC there if accepted on 04/17 per 3 M needed. Patient white board updated. CRM following, contact info provided. DC plan SNF, pending [facility] accepts for SNF stay Normal [facility] Comment on above: Result Comment: Elec tronically Signed By: Cierra Rouse\.br\Date and Time Signed: 04/16/25 11:58 EDT Interdisciplinary Note - Coder Interdisciplinary Note - Coder CRM to room 202 Patient is awake, [...] and pericardial effusion. Patient is assigned to [facility], see notes. Patient has wound, cardiology and neurology on case. Patient is pending MRI. He is getting an ECHO now. Patient has recs from therapy for SNF. Patient spouse would like him referred to [facility]. Patient can DC there if accepted on 04/17 per 3 M needed. Patient white board updated. CRM following, contact info provided. DC plan SNF, pending [facility] Normal [facility] Comment on above: Result Comment: Elec [...] follow up out patient wound clinic Normal [facility] Interdisciplinary Note - Denise n 04-16-2025 Interdisciplinary Note - OT Interdisciplinary Note - OT OT [facility] six clicks score 16/24 = SNF. Patient requires MIN A w/ sit to stand transfers at eob, Min- mod A w dynamic standing adls. Pt requires mod vc for walker safety and sequencing w/ all functional tasks. Inpatient OT services to follow daily to progress as tolerates w/ self help skills. Normal [facility] MRI Brain w/o Contraston MRI Brain w/o [...] Rashid MD Transcribed by: MARII Technologist: JOSE Tovar [facility] Magnesiumon 04-16-2025 Magnesium [Mass/Vol] 2.4 mg/dL Normal 1.3-2.4 [facility] Comment on above: Performed By: #### 2 [id number] #### [facility] [address] [place] [address] eGFRon 04-16-2025 eGFR 39 mL/min/1.73 m2 Low >=59 [facility] Comment on above: Performed By: #### 1 [id number] #### [facility] [address] [place] [address] BMPon 04-15-2025 Anion gap [Moles/Vol] 20 mmol/L High 6-16 [facility] Comment on above: Performed By: #### 2 [id number] #### [facility] [address] [place] [address] BUN/Creat Ratio 18 No Units Normal 10-20 [facility] Comment on above: Performed By: #### 2 193101 #### [facility] [address] [place] [address] Calcium [Mass/Vol] 9.4 mg/dL Normal 8.9-11.1 [facility] Comment on above: Performed By: #### 2 [id number] #### [facility] [address] [place] [address] Chloride [Moles/Vol] 102 mmol/L Normal 101-111 [facility] Comment on above: Performed By: #### 2 [id number] #### [facility] [address] [place] [address] CO2 [Moles/Vol] 24 mmol/L Normal 21-31 [facility] Comment on above: Performed By: #### 2 379752 #### [facility] [address] [place] [address] Creatinine [Mass/Vol] 1.7 mg/dL High 0.5-1.3 [facility] Comment on above: Performed By: #### 2 [id number] #### [facility] [address] [place] [address] Glucose [Mass/Vol] 208 mg/dL High 55-199 [facility] Comment on above: Performed By: #### 2 745487 #### [facility] [address] [place] [address] Potassium [Moles/Vol] 4.0 mmol/L Normal 3.5-5.3 [facility] Comment on above: Performed By: #### 2 152995 #### [facility] [address] [place] [address] Sodium [Moles/Vol] 142 mmol/L Normal 135-145 [facility] Comment on above: Performed By: #### 2 [id number] #### [facility] [address] [place] [address] Urea nitrogen [Mass/Vol] 30 mg/dL High 5-21 [facility] Comment on above: Performed By: #### 2 [id number] #### [facility] [address] [place] [address] CHEMISTRYOrdered By: SYSTEM SYSTEM on 04-15-2025 Cholesterol [...] (Bld) [Mass fraction] 9.9 % High <=5.9% [facility] ChemAutoSS COAGULATIONOrdered By: Deb Maza on 04-15-2025 aPTT Coag (PPP) [Time] 45.1 s High 25.1 - 36.5 second(s) [facility] Auto Coag Comment on above: [...] the same coagulation reagent and instrumentation as [facility]. Currently there are no coagulation studies available worldwide for children to 14 days, and no normal ranges. Heparin therapeutic range (represented by Anti-Factor Xa activity of 0.2 - 0.4 U/mL) corresponds to PTT of 56.6 - 109.0 sec. INR Coag (PPP) [Relative time] 0.95 {INR} Invalid Interpretation Code [facility] [employer] Comment on above: Interpretive Data: I NR results are specifically intended to assess patients stabilized on long-term Anticoagulation therapy suggested INR s Less Intensive Anticoagulation 2.0 3.0 Conventional Range 3.0 4.5 PT Coag (PPP) [Time] 10.6 s Normal 9.4 - 1 2.5 second(s) [facility] Comment on above: [...] the same coagulation reagent and instrumentation as [facility] [facility]. Currently there are no coagulation studies available worldwide for children to 14 days, and no normal ranges. COAGULATIONOrdered By: Marty Naidu on 04-15-2025 aPTT Coag (PPP) [Time] 53.2 s High 25.1 - 36.5 second(s) [facility] Auto Coag Comment on above: [...] the same coagulation reagent and instrumentation as [facility]. Currently there are no coagulation studies available worldwide for children to 14 days, and no normal ranges. Heparin therapeutic range (represented by Anti-Factor Xa activity of 0.2 - 0.4 U/mL) corresponds to PTT of 56.6 - 109.0 sec. INR Coag (PPP) [Relative time] 0.96 {INR} Invalid Interpretation Code [facility] Auto Coag Comment on above: Interpretive Data: I NR results are specifically intended to assess patients stabilized on long-term Anticoagulation therapy suggested INR s Less Intensive Anticoagulation 2.0 3.0 Conventional Range 3.0 4.5 PT Coag (PPP) [Time] 10.8 s Normal 9.4 - 1 2.5 second(s) [facility] Auto Coag Comment on above: [...] the same coagulation reagent and instrumentation as [facility]. Currently there are no coagulation studies available worldwide for children to 14 days, and no normal ranges. Capillary Glucose POCon 06-0 Glucose [Mass/Vol] 177 mg/dL High 55-99 [facility] Comment on above: Result Comment: Tommie HAGEN Performed By: #### 2 [id number] #### [facility] [address] [place] [address] Glucose [Mass/Vol] 202 mg/dL High 55-99 [facility] Comment on above: Result Comment: Tommie HAGEN Performed By: #### 2 [id number] #### [facility] [address] [place] [address] Glucose [Mass/Vol] 216 mg/dL High 55-99 [facility] Comment on above: Result Comment: Tommie HAGEN Performed By: #### 2 [id number] #### [facility] [address] [place] [address] Glucose [Mass/Vol] 242 mg/dL High 55-99 [facility] Comment on above: Result Comment: Tommie HAGEN Performed By: #### 2 [id number] #### [facility] [address] [place] [address] Extra [place] 04-15-2025 WB Tube Collected Yes Invalid Interpretation Code [facility] Comment on above: Performed By: #### 1 [id number] #### [facility] [address] [place] [address] Folateon 04-15-2025 Folate Lvl >22.3 Normal >=6.7 [facility] Comment on above: Performed By: #### 2 [id number] #### [facility] [address] [place] [address] Hemoglobinon 04-15-2025 Hemoglobin (Bld) [Mass/Vol] 12.2 g/dL Low 13.5-17.5 [facility] Comment on above: Performed By: #### 2 [id number] #### [facility] [address] [place] [address] Interdisciplinary Note - Denise n 04-15-2025 Interdisciplinary Note - OT Interdisciplinary Note - OT OT chart reviewed and spoke to nursing with request to hold today until pt. is more medically stable. Will recheck tomorrow. Normal [facility] Interdisciplinary Note - Spe ech Languageon 04-15-2025 [...] to 5x/week to address these deficits. Normal [facility] Lipid Panelon 04-15-2025 Cholesterol [Mass/Vol] 210 mg/dL High 120-200 [facility] Comment on above: Performed By: #### 2 [id number] #### [facility] [address] [place] [address] Cholesterol in HDL [Mass/Vol] 88 mg/dL Invalid Interpretation Code [facility] Comment on above: Result Comment: '>= 60 LOW RISK' '<= 40 HIGH RISK' Performed By: #### 2 [id number] #### [facility] [address] [place] [address] Cholesterol in LDL [Mass/Vol] 107 mg/dL Normal <=129 [facility] Comment on above: Performed By: #### 2 [id number] #### [facility] [address] [place] [address] Cholesterol in VLDL [Mass/Vol] 9 mg/dL Normal 7-40 [facility] Comment on above: Performed By: #### 2 [id number] #### [facility] [address] [place] [address] Triglyceride [Mass/Vol] 44 mg/dL Normal <=149 [facility] Comment on above: Performed By: #### 2 [id number] #### [facility] [address] [place] [address] Magnesiumon 04-15-2025 Magnesium [Mass/Vol] 2.6 mg/dL High 1.3-2.4 [facility] Comment on above: Performed By: #### 2 [id number] #### [facility] [address] [place] [address] PT & PTTon 04-15-2025 INR Coag (PPP) [Relative time] 0.95 {INR} Invalid Interpretation Code [facility] Comment on above: Result Comment: INR results are specifically intended to assess patients stabilized on long-term Anticoagulation therapy suggested INR???s ???Less Intensive Anticoagulation??? 2.0 ??? 3.0 Conventional Range 3.0 ??? 4.5 Performed By: #### 1 [id number] #### [facility] [address] [place] [address] PT 10.6 second(s) Normal 9.4-12.5 [facility] Comment on above: Result Comment: 15 [...] the same coagulation reagent and instrumentation as [facility]. Currently there are no coagulation studies available worldwide for children to 14 days, and no normal ranges. Performed By: #### 1 [id number] #### [facility] [address] [place] [address] PTT 45.1 second(s) High 25.1-36.5 [facility] Comment on above: Result Comment: Para [...] the same coagulation reagent and instrumentation as [facility]. Currently there are no coagulation studies available worldwide for children to 14 days, and no normal ranges. Heparin therapeutic range (represented by Anti-Factor Xa activity of 0.2 - 0.4 U/mL) corresponds to PTT of 56.6 - 109.0 sec. Performed By: #### 1 [id number] #### [facility] [address] [place] [address] INR Coag (PPP) [Relative time] 0.96 {INR} Invalid Interpretation Code [facility] Comment on above: Result Comment: INR results are specifically intended to assess patients stabilized on long-term Anticoagulation therapy suggested INR???s ???Less Intensive Anticoagulation??? 2.0 ??? 3.0 Conventional Range 3.0 ??? 4.5 Performed By: #### 1 [id number] #### [facility] [address] [place] [address] PT 10.8 second(s) Normal 9.4-12.5 [facility] Comment on above: Result Comment: 15 [...] the same coagulation reagent and instrumentation as [facility]. Currently there are no coagulation studies available worldwide for children to 14 days, and no normal ranges. Performed By: #### 1 [id number] #### [facility] [address] [place] [address] PTT 53.2 second(s) High 25.1-36.5 [facility] Comment on above: Result Comment: Para [...] the same coagulation reagent and instrumentation as [facility]. Currently there are no coagulation studies available worldwide for children to 14 days, and no normal ranges. Heparin therapeutic range (represented by Anti-Factor Xa activity of 0.2 - 0.4 U/mL) corresponds to PTT of 56.6 - 109.0 sec. Performed By: #### 1 [id number] #### [facility] [address] [place] [address] Platelet Counton 04-15-2025 Platelet 299.0 E9/L Normal 150.0-500.0 [facility] Comment on above: Performed By: #### 2 [id number] #### [facility] [address] [place] [address] Reference Laboratory Testing Ordered By: Generated DomainUser on 04-15-2025 Reagin Ab RPR Ql (S) Non-Reactive Invalid Interpretation Code Non Reactive [facility] [employer] Comment on above: Result Comment: Perf ormed at: [facility] [address] [id number] PhD Huan Vyas TSH With T4fr Reflexon 04-15 TSH Qn 0.50 m[IU]/L Normal 0.34-5.60 [facility] Comment on above: Performed By: #### 1 [id number] #### [facility] [address] [place] [address] Troponinon 04-15-2025 Troponin HS 62.60 pg/mL Abnormal 15.90-38.40 [facility] Comment on above: Result Comment: Crit [...] Sensitivity Troponin I Instructions For Use, Roxane Foster, June 2018) Performed By: #### 2 [id number] #### [facility] [address] [place] [address] UA with Cult Rflxon 04-15-20 25 Color (U) Light-Yellow Normal Yellow [facility] Comment on above: Result Comment: Micr oscopic readings are only performed on those samples that meet specific criteria set forth by [facility]. Performed By: #### 4 [id number] #### [facility] [address] [place] [address] Ketones Ql (U) 1+ mg/dL Abnormal Negative [facility] Comment on above: Performed By: #### 4 [id number] #### [facility] [address] [place] [address] UA Blood Trace Abnormal Negative [facility] Comment on above: Performed By: #### 4 [id number] #### [facility] [address] [place] [address] UA Clarity Clear Normal Clear [facility] Comment on above: Performed By: #### 4 [id number] #### [facility] [address] [place] [address] UA Glucose 4+ mg/dL Abnormal Negative [facility] Comment on above: Performed By: #### 4 [id number] #### [facility] [address] [place] [address] UA Leuk Est Negative Normal Negative [facility] Comment on above: Performed By: #### 4 [id number] #### [facility] [address] [place] [address] UA Nitrite Negative Normal Negative [facility] Comment on above: Performed By: #### 4 [id number] #### [facility] [address] [place] [address] UA pH 6.0 Invalid Interpretation Code 5.0-9.0 [facility] Comment on above: Performed By: #### 4 [id number] #### [facility] [address] [place] [address] UA Protein Negative Normal Negative [facility] Comment on above: Performed By: #### 4 [id number] #### [facility] [address] [place] [address] UA Spec Grav 1.023 Invalid Interpretation Code 1.005-1.030 [facility] Comment on above: Performed By: #### 4 [id number] #### [facility] [address] [place] [address] UA Urobilinogen Negative Normal Negative [facility] Comment on above: Performed By: #### 4 [id number] #### [facility] [address] [place] [address] Urobilinogen (U) [Mass/Vol] Negative Normal Negative [facility] Comment on above: Performed By: #### 4 [id number] #### [facility] [address] [place] [address] URINALYSISOrdered By: SYSTEM SYSTEM on 04-15-2025 Bilirubin Ql (U) Negative Normal Negativemg/ d L [facility] UA Auto SS Clarity (U) Clear (04/15/25 4:58 AM) Normal Clear [facility] UA Auto SS Color (U) Light-Yellow 1 (04/15/25 4:58 AM) Normal Yellow [facility]A Auto SS Comment on above: Interpretive Data: M icroscopic readings are only performed on those samples that meet specific criteria set forth by [facility]. Glucose Ql (U) 4+ mg/dL Invalid Interpretation Code Negativemg/d L [facility] Auto SS Hemoglobin Auto test strip (U) [Mass/Vol] Trace mg/dL Invalid Interpretation Code Negativemg/d L [facility] UA Auto SS Ketones Auto test strip [...] Protein Ql (U) Negative Normal Negativemg/d L [facility] UA Auto SS Specific gravity (U) [Rel density] 1.023 *NA* (04/15/25 4:58 AM) Invalid Interpretation Code 1.005 - 1.030 [facility] UA Auto SS Urobilinogen (U) [Mass/Vol] Negative Normal Negativemg/d L [facility] UA Auto SS URINALYSISOrdered By: Nick Farmer on 04-15-2025 UA Spec Desc Clean Catch (04/15/25 4:58 AM) Normal [facility] UA Auto SS Vit B12on 04-15-2025 Cobalamin (Vitamin B12) [Mass/Vol] 573 pg/mL Normal 50-1500 [facility] Comment on above: Performed By: #### 2 [id number] #### [facility] [address] [place] [address] eGFRon 04-15-2025 eGFR 39 mL/min/1.73 m2 Low >=59 [facility] Comment on above: Performed By: #### 1 [id number] #### [facility] [address] [place] [address] BB Draw & Holdon 04-14-2025 BB D&H Sample drawn for Blo od Ba Normal [facility] Comment on above: Performed By: #### 1 [id number] #### [facility] [address] [place] [address] BMPon 04-14-2025 Anion gap [Moles/Vol] 15 mmol/L Normal 6-16 [facility] Comment on above: Performed By: #### 2 [id number] #### [facility] [address] [place] [address] BUN/Creat Ratio 16 No Units Normal 10-20 [facility] Comment on above: Performed By: #### 2 [id number] #### [facility] [address] [place] [address] Calcium [Mass/Vol] 9.0 mg/dL Normal 8.9-11.1 [facility] Comment on above: Performed By: #### 2 [id number] #### [facility] [address] [place] [address] Chloride [Moles/Vol] 103 mmol/L Normal 101-111 [facility] Comment on above: Performed By: #### 2 [id number] #### [facility] [address] [place] [address] CO2 [Moles/Vol] 24 mmol/L Normal 21-31 [facility] Comment on above: Performed By: #### 2 [id number] #### [facility] [address] [place] [address] Creatinine [Mass/Vol] 1.8 mg/dL High 0.5-1.3 [facility] Comment on above: Performed By: #### 2 [id number] #### [facility] [address] [place] [address] Glucose [Mass/Vol] 245 mg/dL High 55-199 [facility] Comment on above: Performed By: #### 2 [id number] #### [facility] [address] [place] [address] Potassium [Moles/Vol] 5.0 mmol/L Normal 3.5-5.3 [facility] Comment on above: Performed By: #### 2 [id number] #### [facility] [address] [place] [address] Sodium [Moles/Vol] 137 mmol/L Normal 135-145 [facility] Comment on above: Performed By: #### 2 [id number] #### [facility] [address] [place] [address] Urea nitrogen [Mass/Vol] 28 mg/dL High 5-21 [facility] Comment on above: Performed By: #### 2 [id number] #### [facility] [address] [place] [address] BNPon 5 Natriuretic peptide B (Bld) [Mass/Vol] 512 pg/mL High 5-80 [facility] Comment on above: Performed By: #### 1 [id number] #### [facility] [address] [place] [address] CBC w/ Auto Diffon 5 Basophil Absolute 0.1 E9/L Normal 0.0-0.2 [facility] Comment on above: Performed By: #### 2 [id number] #### [facility] [address] [place] [address] Basophils/100 WBC (Bld) 0.8 % Normal 0.0-2.0 [facility] Comment on above: Performed By: #### 2 [id number] #### [facility] [address] [place] [address] Eos Absolute 0.1 E9/L Normal 0.0-0.5 [facility] Comment on above: Performed By: #### 2 [id number] #### [facility] [address] [place] [address] Eosinophils/100 WBC (Bld) 1.5 % Normal 0.0-8.0 [facility] Comment on above: Performed By: #### 2 [id number] #### [facility] [address] [place] [address] Erythrocyte distribution width (RBC) [Ratio] 19.7 % High 10.9-14.2 [facility] Comment on above: Performed By: #### 2 [id number] #### [facility] [address] [place] [address] Hematocrit (Bld) [Volume fraction] 33.7 % Low 37.7-49.0 [facility] Comment on above: Performed By: #### 2 [id number] #### [facility] [address] [place] [address] Hemoglobin (Bld) [Mass/Vol] 11.0 g/dL Low 13.5-17.5 [facility] Comment on above: Performed By: #### 2 [id number] #### [facility] [address] [place] [address] Lymph Absolute 0.6 E9/L Low 1.0-4.0 [facility] Comment on above: Performed By: #### 2 [id number] #### [facility] [address] [place] [address] Lymphocytes/100 WBC (Bld) 7.8 % Low 14.0-50.0 [facility] Comment on above: Performed By: #### 2 [id number] #### [facility] [address] [place] [address] MCH (RBC) [Entitic mass] 27.5 pg Normal 27.0-34.0 [facility] Comment on above: Performed By: #### 2 [id number] #### [facility] [address] [place] [address] MCHC (RBC) [Mass/Vol] 32.7 g/dL Normal 31.4-36.0 [facility] Comment on above: Performed By: #### 2 [id number] #### [facility] [address] [place] [address] MCV (RBC) [Entitic vol] 84.0 fL Normal 80.0-100.0 [facility] Comment on above: Performed By: #### 2 [id number] #### [facility] [address] [place] [address] Moffat Absolute 0.8 E9/L Normal 0.2-1.0 [facility] Comment on above: Performed By: #### 2 [id number] #### [facility] [address] [place] [address] Monocytes/100 WBC (Bld) 9.9 % Normal 4.0-14.0 [facility] Comment on above: Performed By: #### 2 [id number] #### [facility] [address] [place] [address] Neutro Absolute 6.5 E9/L Normal 2.0-7.5 [facility] Comment on above: Performed By: #### 2 [id number] #### [facility] [address] [place] [address] Neutro Auto 80.0 % High 36.0-75.0 [facility] Comment on above: Performed By: #### 2 [id number] #### [facility] [address] [place] [address] Platelet 216.0 E9/L Normal 150.0-500.0 [facility] Comment on above: Performed By: #### 2 [id number] #### [facility] [address] [place] [address] Platelet mean volume (Bld) [Entitic vol] 9.3 fL Normal 6.4-10.8 [facility] Comment on above: Performed By: #### 2 [id number] #### [facility] [address] [place] [address] RBC 4.0 E12/L Low 4.3-5.9 [facility] Comment on above: Performed By: #### 2 [id number] #### [facility] [address] [place] [address] WBC 8.1 E9/L Normal 4.0-11.0 [facility] Comment on above: Result Comment: Rosaura pheral smear review performed. Performed By: #### 2 [id number] #### [facility] [address] [place] [address] CHEMISTRYOrdered By: MiniL[employer] SYSTEM on 04-14-2025 Lactate [Moles/Vol] 1.5 mmol/L [...] 512 pg/mL High 5 - 80 pg/mL Critical [facility] hospital CHEMISTRYOrdered By: Samir Naidu on 04-14-2025 Magnesium [...] Sensitivity Troponin I Instructions For Use, Roxane Foster, June 2018) COAGULATIONOrdered By: Kellee Mcguire on 04-14-2025 aPTT Coag (PPP) [Time] 33.3 s Normal 25.1 - 36.5 second(s) [facility] Comment on above: Interpretive Data: Yaneth ramos 15 days - 4 weeks 1 - [...] the same coagulation reagent and instrumentation as [facility]. Currently there are no coagulation studies available worldwide for children to 14 days, and no normal ranges. Heparin therapeutic range (represented by Anti-Factor Xa activity of 0.2 - 0.4 U/mL) corresponds to PTT of 56.6 - 109.0 sec. INR Coag (PPP) [Relative time] 0.98 {INR} Invalid Interpretation Code [facility] Comment on above: Interpretive Data: I NR results are specifically intended to assess patients stabilized on long-term Anticoagulation therapy suggested INR s Less Intensive Anticoagulation 2.0 3.0 Conventional Range 3.0 4.5 PT Coag (PPP) [Time] 11.0 s Normal 9.4 - 1 2.5 second(s) [facility] Comment on above: [...] the same coagulation reagent and instrumentation as [facility]. Currently there are no coagulation studies available worldwide for children to 14 days, and no normal ranges. CT Chest w/o Contraston 05-3 CT Chest w/o Contrast Exam Date/Time: 04/14/2025 [...] DO Transcribed by: MARII Technologist: ADÁN Tovar [facility] CT Head or Brain w/o Contras ton [...] DO Transcribed by: MARII Technologist: ADÁN Tovar [facility] CTA Headon 04-14-2025 CTA Head Exam Date/Time: 04/14/2025 17:33 EDT Reason for Exam: NEURO DEFICIT, ACUTE, STROKE SUSPECTED;Other (please specify) Report Please see CTA neck report. Ordering Provider: Rivas Griggs FINAL REPORT Dictated: 04/14/2025 5:55 pm Yoel Rodriguez DO Signed (Electronic Signature): 04/14/2025 5:55 pm Signed by: Yoel Rodriguez DO Transcribed by: MARII Technologist: CONSTANTIN Romero [facility] CTA Neckon 04-14-2025 CTA Neck Exam Date/Time: [...] obtained from the thoracic inlet through the enterprise of [employer] after administration of intravenous contrast. [...] DO Transcribed by: MARII Technologist: CONSTANTIN Tovar [facility] Capillary Glucose POCon 05 Glucose [Mass/Vol] 261 mg/dL High 55-99 [facility] Comment on above: Performed By: #### 2 [id number] #### [facility] [address] [place] [address] ED Clinical Summaryon 2024 ED Clinical Summary ED Clinical Summary [address] [address] ED Clinical Summary Person Information Name: NADIR BETH [facility] Age: 85 Years : 1940 Sex: Male Language: Uruguayan PCP: Van Youssef MD Marital Status: Visit Id: Visit Reason: Altered mental status; Headache; Potential stroke; stroke Speciality: Acuity: 2 Enc Type: Inpatient Med Service: Medical Arrival: 04/14/2025 16:53:36 Discharge: LOS: 000 03:59 Checkin: 04/14/2025 16:53:36 Checkout: 04/14/2025 20:52:18 Dispo Type: Admitted as IP to this [facility] EVENTS: Event Name Event Status [...] 19:37:19 Pending Labs Request 04/14/2025 19:50:50 ADDRESS: [address] [place] [id number] PHYS DOC NOTES: Addendum by Oleg Doll DO on April 14, 2025 19:50:02 EDT MEDICAL INFORMATION: Prescriptions Given: Medications to Continue with No Changes Other Medications acetaminophen-hydrocod one ([place]orrow 325 mg-5 mg oral tablet) 1 Tablets [...] the morn (more content not included)... Normal [facility] ED Note-Physicianon 04-14-20 ED Note-Physician ED Note-Physician Basic Information Time Seen: Indu Slaughter, Rivas Hill 04/14/2025 17:02 Chief Complaint pt presents via [facility] d/t ams. family states pt complains of [...] of Problems Differential Diagnosis: [] [facility] Data External documents reviewed: [] My EKG [...] cardiac and/ (more content not included)... Normal [facility] Comment on above: Result Comment: Elec tronically Signed By: Oleg Doll DO\.br\Date and Time Signed: 04/14/25 19:50 EDT ED Patient Education Noteon 04-14-2025 ED Patient Education Note ED Patient Education Note Normal [facility] ED Patient Summaryon 025 ED Patient Summary ED Patient Summary [place] [address] Patient Discharge Instructions Person Information Name: NADIR BETH Age: 85 Years Arrival Date: 04/14/2025 16:53:36 Discharge Diagnosis: 1:CVA (cerebrovascular accident); 2:Congestive heart failure; 3:Chronic kidney disease; 4:Hypertensive urgency; Pericardial effusion; Pleural effusion Primary Care Physician: Van Youssef MD Provider Information Primary Provider: Rivas Griggs M.D. Advanced [employer] Processing Machine Operator:None The exam and treatment you received in the Emergency Department were for an urgent problem and are not intended as complete care. It is important that you follow up with a doctor, nurse practitioner, or physician???s surgical assistant for ongoing care. If your symptoms [...] opioids can be used to help relieve nziizhne-kg-xbqkvq pain and are often prescribed following a [...] be struggling with addiction, tell your health small animal caretaker and ask for guidance or call [facility] (more content not included)... Normal [facility] Lactic Acidon 04-14-2025 Lactic Acid Lvl 1.5 mmol/L Normal 0.5-2.2 [facility] Comment on above: Performed By: #### 2 [id number] #### [facility] [address] [place] [address] Magnesiumon 04-14-2025 Magnesium [Mass/Vol] 2.2 mg/dL Normal 1.3-2.4 [facility] Comment on above: Performed By: #### 2 [id number] #### [facility] [address] [place] [address] No Panel InformationOrdered By: [facility] on 04-14-2025 Blood Culture Charcoal No growth at 4 days. Final to follow at 7 days. [facility] Blood Culture Charcoal No growth at 4 days. Final to follow at 7 days. [facility] PT & PTTon 04-14-2025 INR Coag (PPP) [Relative time] 0.98 {INR} Invalid Interpretation Code [facility] Comment on above: Result Comment: INR results are specifically intended to assess patients stabilized on long-term Anticoagulation therapy suggested INR???s ???Less Intensive Anticoagulation??? 2.0 ??? 3.0 Conventional Range 3.0 ??? 4.5 Performed By: #### 1 [id number] #### [facility] [address] [place] [address] PT 11.0 second(s) Normal 9.4-12.5 [facility] Comment on above: Result Comment: 15 [...] the same coagulation reagent and instrumentation as [facility]. Currently there are no coagulation studies available worldwide for children to 14 days, and no normal ranges. Performed By: #### 1 [id number] #### [facility] [address] [place] [address] PTT 33.3 second(s) Normal 25.1-36.5 [facility] Comment on above: Result Comment: Para meter 15 days - 4 weeks 1 - 5 months 6 - 11 months 1 - 5 years 6 - 10 years 11 - 17 years PTT Mean: 35.4 (27.6-45.6) Mean: 33.5 (24.8-40.7) Mean: 32.4 (25.1-40.7) Mean: 31.6 (24.0-39.2) Mean: 31.6 (26.9-38.7) Mean: 31.0 (24.6-38.4) Pediatric Reference ranges were obtained from a study by Hood Lorain, et al. prepared from 1437 samples obtained at 7 different centers using the same coagulation reagent and instrumentation as [facility]. Currently there are no coagulation studies available worldwide for children to 14 days, and no normal ranges. Heparin therapeutic range (represented by Anti-Factor Xa activity of 0.2 - 0.4 U/mL) corresponds to PTT of 56.6 - 109.0 sec. Performed By: #### 1 [id number] #### [facility] [address] [place] [address] Pre-Arrival Noteon Pre-Arrival Note Pre-Arrival Note Pre-Arrival Summary Name: , formerly [facility] Current Date: 04/14/2025 16:54:02 EDT Gender: Male Date of : Age: 85 Pre-Arrival Type: EMS ETA: 04/14/2025 17:17:00 EDT Primary Care Physician: Presenting Problem: Pre-Arrival User: Abdoul Mcmillan Referring Source: Location: [place] Completion Date/Time: 04/14/2025 16:47:00 [facility] Emergency Department Pre-Hospital Report Form Vital Signs: Pre-Hospital Report: Treatment in Route: Response to Treatment: Misc. Issues: Normal [facility] Procalcitoninon 04-14-2025 Procalcitonin .06 ng/mL Normal .00-.50 [facility] Comment on above: Result Comment: <0.5 [...] to 24 hours. Performed By: #### 2 [id number] #### [facility] [address] [place] [address] Troponin 0 Hr.on 04-14-2025 Troponin HS 18.30 pg/mL Normal 15.90-38.40 [facility] Comment on above: Result Comment: The 95% CI (Confidence Interval) PPV (Positive Predictive Value) for myocardial infarction in females is 38 pg/mL, in males 51 pg/mL. The results should be used in conjunction with clinical conditions of myocardial infarction. (Access High Sensitivity Troponin I Instructions For Use, Roxane Airec, June 2018) Performed By: #### 1 [id number] #### [facility] [address] [place] [address] UA with Cult Rflxon 04-14-20 25 UA Spec Desc Clean Catch Normal [facility] Comment on above: Performed By: #### 4 [id number] #### [facility] [address] [place] [address] XR Chest Single Viewon 04-14 XR Chest [...] DO Transcribed by: MARII Technologist: ADÁN Tovar [facility] eGFRon 04-14-2025 eGFR 36 mL/min/1.73 m2 Low >=59 [facility] Comment on above: Performed By: #### 1 [id number] #### [facility] [address] [place] [address] Office Visiton 03-12-2025 Follow-up visit [id number] Nadir Beth 1940 M Date Provider Department Center 03/12/2025 CLARIBEL VILLALOBOS [facility] Family History Problem Relation Age of Onset Coronary artery disease Father Family Status - Relation Status Age at Father Level of Service:80597 [place] OFFICE/OUTPATIENT ESTABLISHED HIGH MDM [address] [facility] HPon 02-28-2025 HP -- Attestation signed by Albaro Faulkner MD at 03/01/2025 6:06 PM I personally saw and examined the patient on the same date of service as resident/fellow Dr chilel. I discussed the findings and therapeutic plan with the resident/fellow Dr chilel. I agree with the documentation, except for any edits/updates below. Teaching Physician's Revisions: None Albaro Faulkner MD, [facility] History Of Present Illness Nadir Beth is a 85 y.o. male presenting with aortic stoneosis for MARK. Past Medical History He has a past medical history of Atrial fibrillation ([facility]), CHF (congestive heart failure) (CMS/HCC), [...] Father Allergies Iodinated contrast media, Nitroglycerin, and Chqlrqf-gdy-nkl reductase inhibitors Medications (Not in a hospital [...] Imaging Results Transesophageal echo (MARK) Addendum: [facility] Heart Station [address] [place] [address] [phone] (fax) Transesophageal Echocardiogram-[facility] Name: NADIR BETH Study Date: 08/31/2023 02:31 PM B/P: 190 mmHg/86 mmHg HR: 92 bpm Date of : 1940 Location: [facility] Height: 71 in. Age: 83 year(s) Patient Room: Weight: 210 lb. Gender: Male Patient Status: OutPt BSA: 2.15 m2 Indication: Aortic Valve Stenosis Examination: MARK/Limited Doppler/CFI Image Quality: Excellent Patient Consent: Informed, written consent was obtained for the procedure Exam Location: A AMRK was performed in the Chief Librarian Circulation Department without complications Anesthesia Pharyngeal anesthesia with viscous Lidocaine Conclusions Left Ventricle: Global left ventricular systolic function is hyperdynamic. EF range is estimated at 65 % -70 %. No regional wall motion abnormality. Right Ventricle: The right ventricle appears normal in size. Normal right kari (more content not included)... Normal [facility] NURSNOTEon 02-28-2025 NURSNOTE Bedside swallow stud [...] of unit with all of belongings. Normal [facility] Telephoneon 02-21-2025 Telephone [id number] Nadir Beth 1940 M Date Provider Department Center 02/21/2025 RABIA KONG [facility] Family History Problem Relation Age of Onset Coronary artery disease Father Family Status - Relation Status Age at Father Normal [facility] Follow-Upon 01-03-2025 Follow-Up [id number] Nadir Beth 1940 M Date Provider Department Center 01/03/2025 SalvadorRUTHIE THOMPSON [facility] NEPHRO Comprehensiv Family History Problem Relation Age of Onset Coronary artery disease Father Family Status - Relation Status Age at Father Level of Service:13802 [place] OFFICE/OUTPATIENT ESTABLISHED MOD MDM 30 MIN () Reason for Visit and Comments: Follow-up [329947] Normal [facility] Office Visiton 12-14-2024 Follow-up visit [id number] Nadir Beth 1940 M Date Provider Department Center 12/14/2024 CLARIBEL VILLALOBOS MILKA [facility] Family History Problem Relation Age of Onset Coronary artery disease Father Family Status - Relation Status Age at Father Level of Service:60742 [place] OFFICE/OUTPATIENT ESTABLISHED MOD MDM 30 MIN [facility] Ambulatory Visit Summaryon 0 12-04-2024 Ambulatory [...] This Is Your Medications List acetaminophen-hydrocod one (Morrow 325 mg-5 mg oral tablet) ciprofloxacin (Cipro [...] LU OLMEDO PA-C Where: [facility] [place] [id number] You Need to Schedule the Following Appointments Follow Up with ADRIAN GUSTAFSON, ADAN CHO When: In 6 months Comments: Can see DIAMANTE, w/PVR Where: Medications What How Much When Why Instructions Unchanged acetaminophen-hydrocod one (Morrow 325 mg-5 mg oral tablet) 1 Tablets [...] concerns Uncha (more content not included)... Normal [facility] Office/Clinic Noteon 12-04-2024 Urology Office/Clinic Note [...] out of his penis. Pt presented to [facility] ER 10/28/24 due to clot retention. [...] 7. 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) Pt presented to [facility] ER 08/06/24 with redness on the [...] penis. -Cont symptomatic monitoring 8. Anticoagulated (Z79.01: residential (current) use of anticoagulants) Taking Eliquis, has restarted since UroLift. Hx of cardioversion. Increased risk for bleeding. Elevated r (more content not included)... Normal [facility] Comment on above: Result Comment: Elec [...] Is Your Medications List NIFEdipine acetaminophen-hydrocod one (Morrow 325 mg-5 mg oral tablet) acyclovir apixaban [...] MARQUIS LOUISE MD Where: [facility] [address], [address] [place] [address]- Medications What How Much When Why Instructions Unchanged acetaminophen-hydrocod one (Morrow 325 mg-5 mg oral tablet) 1 Tablets [...] survey v (more content not included)... Normal [facility] Ambulatory Visit Summaryon 1 01-03-2024 Ambulatory Visit Summary Ambulatory Visit Summary NADIR BETH :1940 Visit Date:11/02/2024 Ambulatory Visit Instructions Your Diagnosis BPH with urinary obstruction Gross hematuria Incomplete bladder emptying OAB (overactive bladder) Acquired buried penis Balanitis Anticoagulated Your Care Team Attending Physician - ADRIAN GUSTAFSON, MARQUIS Primary Care Physician - Van Youssef MD This Is Your Medications List acetaminophen-hydrocod one (Morrow 325 mg-5 mg oral tablet) ciprofloxacin (Cipro [...] With: Where: [facility] [address] [place] [address] [place] [address]- Wednesday 8:40 AM EST With: MARQUIS LOUISE MD Where: [facility] [address], [address] [place] [address]- You Need to Schedule the Following Appointments Follow Up with MARQUIS LOUISE MD, URL When: Where: Medications What How Much When Why Instructions Unchanged acetaminophen-hydrocod one (Morrow 325 mg-5 mg oral tablet) 1 Tablets [...] or co (more content not included)... Normal [facility] U[facility] Office/Clinic Noteon 11-02-2024 Urology Office/Clinic Note Urology Office/Clinic Note Chief Complaint er f/u HPI Staff 84 year old male here for [facility] ER F/U, difficulty urinating. Bladder scan [...] with voice recognition artificial intelligence software, specifically [employer], [email or web address] and or [employer]. Substitutions may have occurred due to the [...] out of his penis. Pt presented to [facility] ER 10/28/24 due to clot retention. [...] 6. 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) Pt presented to [facility] ER 08/06/24 with redness on the [...] penis. -Cont symptomatic monitoring 7. Anticoagulated (Z79.01: residential (current) use of anticoagulants) Taking Eliquis, has restarted since UroLift. Hx of cardioversion. Increased risk for bleeding. Elevated risk for periop complications. Patient underwent a UroLift procedure approximately a week and a half ago. Unfortunately, he developed gross hematuria with clot retention that required hand irrigation with a three-way Palomares catheter. He presents today for an (more content not included)... Normal [facility] Comment on above: Result Comment: Elec [...] Is Your Medications List NIFEdipine acetaminophen-hydrocod one (Morrow 325 mg-5 mg oral tablet) acyclovir apixaban [...] MARQUIS LOUISE MD Where: [facility] [address], [address] [place] [id number]- Medications What How Much When Why Instructions Unchanged acetaminophen-hydrocod one (Morrow 325 mg-5 mg oral tablet) 1 Tablets [...] emptying Naus (more content not included)... Normal [facility] Inpatient Patient Summaryon 10-23-2024 Inpatient Patient Summary Inpatient Patient Summary [address] [address] Clinical Summary Person Information Name: NADIR BETH Age: 84 Years : 1940 Sex: Male PCP: Van Youssef MD Marital Status: Race: White Ethnicity: Non- or Language: Uruguayan Visit Id: Visit Reason: BPH WITH URINARY OBSTRUCTION, INCOMPLETE BLADDER EMPTYING Speciality: Acuity: Enc Type: Outpatient Med Service: Surgery Arrival: 10/23/2024 13:48:15 Discharge: Dispo Type: Address: [address] [place] [phone] Provider Notes: Diagnosis: Problems Active BPH with [...] This Visit Final Med List: acetaminophen-hydrocod one (Morrow 325 mg-5 mg oral tablet) 1 Tablets [...] Patient Education Information: Benign Prostatic Hyperplasia Normal [facility] Main OR Intraoperative Recor don 10-23-2024 Main OR Intraoperative Record Main OR Intraoperative Record IntraOp Document Type FTURO Summary Primary Physician: MARQUIS LOUISE MD Finalized Date/Time: 10/23/24 15:03:19 Pt. Name: NADIR BETH Joy SawyerB./Sex: 1940 Male Med Rec #: [id number] Physician: MARQUIS LOUISE MD Financial #: [id number] Pt. Type: O Room/Bed: / Admit/Disch: 10/23/24 [...] Ana CHO Role Performed Surgeon - Primary Furnace Cooler - Primary Scrub - Primary Time In [...] Implant Implant Identification Description UROLIFT Lot Number [id number] Nuclear Waste Process Operator UROLIFT Catalog ???# UL2-C Expiration Date [...] Oliva Goel (more content not included)... Normal [facility] Main OR Preoperative Recordo n 10-23-2024 Main OR Preoperative Record Main OR Preoperative Record Holding Area Document Type FTURO Summary Primary Physician: MARQUIS LOUISE MD Finalized Date/Time: 10/23/24 14:17:30 Pt. Name: KIRITNADIR D.O.B./Sex: 1940 Male Med Rec #: [id number] Physician: MARQUIS LOUISE MD Financial #: [id number] Pt. Type: O Room/Bed: / Admit/Disch: 10/23/24 [...] Complaints of Pain: No Skin Integrity Intact, Neotsu, Warm, & Dry Vitals - EU Blood Pressure 152/78 Pulse 84 bpm Respirations 18 br/min SPO2 90 % Additional None RN Reviewed Yes Specimens Collected Last Modified By: Oliva Goel 10/23/24 14:17:29 Finalized By: Oliva Goel Document Signatures Signed By: Preeti Kaur LPN 10/23/24 14:05 Oliva Goel 10/23/24 14:17 Normal [facility] Operative Reporton 4 Operative Report Operative Report [...] urethral meatus. We then placed the 20 Syrian cystoscope into the bladder. Bilobar hyperplasia was [...] able to easily navigate with a 20 Syrian scope. Scope was then removed and an 18 Syrian Palomares catheter was placed with return of light pink urine and no clots noted. This concluded the procedure. Patient was then transferred to PACU in stable condition. PLAN: Patient will follow-up in 2 days for Palomares catheter removal. 10 cc in the balloon Follow-up in 6 to 8 weeks with IPSS at that time Normal [facility] Comment on above: Result Comment: Elec tronically Signed By: MARQUIS LOUISE MD\.br\Date and Time Signed: 10/23/24 15:06 EST Outpatient Surgery Discharge Instructionon 10-23-2024 Outpatient Surgery Discharge Instruction Outpatient Surgery Discharge Instruction [place] [id number] Patient Discharge Instructions PERSON INFORMATION Name: NADIR [...] amount of (more content not included)... Normal [facility] Ambulatory Visit Summaryon 12-02-2023 Ambulatory Visit Summary Ambulatory Visit Summary ZOEYIRAHAILEENADIR Joy :1940 Visit Date:10/02/2024 Ambulatory Visit Instructions Your Diagnosis BPH with urinary obstruction Incomplete bladder emptying Balanitis Acquired buried penis OAB (overactive bladder) Anticoagulated Your Care Team Attending Physician - ADRIAN GUSTAFSONMARQUIS Primary Care Physician - Van Youssef MD [...] Survey Yo (more content not included)... Normal [facility] Ambulatory Visit Summary Ambulatory Visit Summary NADIR [...] us for (more content not included)... Normal [facility] Urology Office/Clinic Noteon 10-02-2024 Urology Office/Clinic Note [...] with voice recognition artificial intelligence software, specifically [employer], [email or web address] and or [employer]. Substitutions may have occurred due to the [...] -Cipro 500mg bid start the day prior, Morrow 325-5mg #2 q6hrs as needed for pain, [...] 3. 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) Pt presented to [facility] ER 08/06/24 with redness on the [...] and Lasix. -Dm control 6. Anticoagulated (Z79.01: residential (current) use of anticoagulants) Taking Eliquis. Hx of cardioversion. Elevated risk for periop complications. Based on patient's age, multiple medical comorbidities and his prostate size we discussed extensively that he will benefit most likely from a UroLift procedure. He is amenable to (more content not included)... Normal [facility] Comment on above: Result Comment: Elec tronically Signed By: MARQUIS LOUISE MD\.br\Date and Time Signed: 10/02/24 11:43 EST\.br\Electronically Co-Signed By: Roxy Gatica.br\Date and Time Co-Signed: 10/02/24 11:21 EST\.br\Electronically Co-Signed By: Roxy Gatica.br\Date and Time Co-Signed: 10/02/24 11:22 EST\.br\Electronically Co-Signed By: Roxy Gatica\Date and Time Co-Signed: 10/02/24 11:23 EST Inpatient Patient Summaryon 09-25-2024 Inpatient Patient Summary Inpatient Patient Summary [place] [address] Clinical Summary Person Information Name: NADIR BETH Age: 84 Years : 1940 Sex: Male PCP: Van Youssef MD Marital Status: Race: White Ethnicity: Non- or Language: Uruguayan Visit Id: Visit Reason: ENLARGED PROSTATE WITH URINARY OBSTRUCTION, INCOMPLETE BLADDER EMPTYING Speciality: Acuity: Enc Type: Outpatient Med Service: Surgery Arrival: 09/25/2024 11:42:27 Discharge: Dispo Type: Address: [address] [place] [phone] Provider Notes: Diagnosis: Problems Active BPH with [...] MD Follow up: With: Address: When: MARQUIS ROAJILLIANMYA [address] [address] [phone] Business (1) Comments: Follow-up in the office in 2 weeks to discuss next plan With: Address: When: [place] [address] [phone] Business (1) Patient Education Information: Benign Prostatic Hyperplasia Normal [facility] Main OR Intraoperative Recor don 09-25-2024 Main OR Intraoperative Record Main OR Intraoperative Record IntraOp Document Type FTURO Summary Primary Physician: MARQUIS LOUISE MD Finalized Date/Time: 09/25/24 13:23:58 Pt. Name: KIRITNADIR/Sex: 1940 Male Med Rec #: [id number] Physician: MARQUIS LOUISE MD Financial #: [id number] Pt. Type: O Room/Bed: / Admit/Disch: 09/25/24 [...] C KWABENA Role Performed Surgeon - Primary Furnace Cooler - Primary Scrub - Primary Time In [...] Goel 09/25/24 13:23 Oliva Goel 09/25/24 13:23 [facility] Main OR Preoperative Recordo n 09-25-2024 Main OR Preoperative Record Main OR Preoperative Record Holding Area Document Type FTURO Summary Primary Physician: MARQUIS LOUISE MD Finalized Date/Time: 09/25/24 13:04:51 Pt. Name: KIRIT NADIRCONNIE Biswas/Sex: 1940 Male Med Rec #: [id number] Physician: MARQUIS LOUISE MD Financial #: [id number] Pt. Type: O Room/Bed: / Admit/Disch: 09/25/24 [...] Complaints of Pain: No Skin Integrity Intact, Neotsu, Warm, & Dry Vitals - EU Blood Pressure Pulse Respirations SPO2 Additional None RN Reviewed Yes Specimens Collected Last Modified By: Oliva Goel 09/25/24 13:04:50 Finalized By: Oliva Goel Document Signatures Signed By: Preeti Kaur LPN 09/25/24 12:49 Oliva Goel 09/25/24 13:04 Normal [facility] Operative Reporton 4 Operative Report Operative Report [...] steps Impression and Plan Counseled: Family. Normal [facility] Comment on above: Result Comment: Elec tronically Signed By: MARQUIS LOUISE MD\.br\Date and Time Signed: 09/25/24 13:27 EST Outpatient Surgery Discharge Instructionon 09-25-2024 Outpatient Surgery Discharge Instruction Outpatient Surgery Discharge Instruction [place] [address] Patient Discharge Instructions PERSON INFORMATION Name: NADIR [...] Address: When: MARQUIS LOUISE [address] [place] [id number] [phone] [employer] (1) Comments: Follow-up in the office in 2 weeks to discuss next plan With: Address: When: MARQUIS LOUISE [address] [place] [phone] [employer] (1) Comment: PATIENT EDUCATION INFORMATION Instructions: Benign [...] radio frequen (more content not included)... Normal [facility] No Panel Informationon 08-24 [facility] Ambulatory Visit Summaryon 0 08-08-2024 [...] 525 mg (more content not included)... Normal [facility] Urology Office/Clinic Noteon 08-08-2024 Urology Office/Clinic Note Urology Office/Clinic Note Chief Complaint follow up to [facility] ER HPI Staff 84 year old male new patient follow up to [facility] 08/06/24 presented due to redness on [...] 1. 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) Pt presented to [facility] ER 08/06/24 with redness on the [...] urinary channel, (more content not included)... Normal [facility] Comment on above: Result Comment: Elec tronically Signed By: ADRIAN GUSTAFSON, MARQUIS\.br\Date and Time Signed: 08/08/24 11:05 EDT\.br\Electronically Co-Signed By: Roxy Gatica\.br\Date and Time Co-Signed: 08/08/24 10:46 EDT\.br\Electronically Co-Signed By: Roxy Gatica\.br\Date and Time Co-Signed: 08/08/24 10:53 EDT Office Visiton 07-05-2024 Follow-up visit [id number] Nadir Beth 1940 M Date Provider Department Center 07/05/2024 Salvador-RUTHIE LINDA [facility] NEPHRO Comprehensiv Family History Problem Relation Age of Onset Coronary artery disease Father Family Status - Relation Status Age at Father Level of Service:65610 [place] OFFICE/OUTPATIENT ESTABLISHED MOD MDM 30 MIN Reason for Visit and Comments: Follow-up [252666] [facility] 36on 06-20-2024 36 Regarding echo [...] her he should have another echo at [facility] in Oct 2024, prior to his follow up with Dr. Cisneros in Nov 2024. She verbalized understanding. Echo order faxed to [facility]. Normal [facility] MICRO OTHER TESTSOrdered By: Francisco Bolanos [...] 37 mL/min/1.73 m2 Low >=59mL/min/1 .73 m2 [facility] Chem S Globulin (S) [Mass/Vol] 2.8 g/dL [...] 0.9 % Normal 0.0 - 2.0 % FT HemeAutoSS Basophils/Leukocytes Auto (Bld) [Pure # fraction] [...] 161.0 E9/L Normal 150.0 - 500.0 E9/L [facility] HemeAutoSS RBC (Bld) [#/Vol] 4.0 E12/L Low 4.3 - 5.9 E12/L [facility] HemeAutoSS WBC corrected for nucl RBC Auto (Bld) [#/Vol] 6.7 E9/L Normal 4.0 - 11.0 E9/L [facility] HemeAutoSS ALBUMINon 03-24-2023 Albumin [Mass/Vol] 3.3 g/dL Critically low 3.4-5.0 [facility] Comment on above: Performed By: #### ERICK Jacques, PHOS #### [facility] [address] [place] [address] Dr. David Magana GLYCOHEMOGLOBIN A1Con 2022 ADA RECOMMENDATION SEE BELOW Normal [facility] Comment on above: Result Comment: ADA RECOMMENDED LIMIT 4.0 - 6.0 ADA THERAPEUTIC TARGET < 7.0 ACTION SUGGESTED > 7.0 Performed By: #### A 1C #### [facility] [address] [place] [address] Dr. David Magana Glucose [Mass/Vol] 108 mg/dL Normal [facility] Comment on above: Performed By: #### A 1C #### [facility] [address] [place] [address] [address] David Magana HbA1c (Bld) [Mass fraction] 5.4 % Normal 4.5-6.2 [facility] Comment on above: Performed By: #### A 1C #### [facility] [address] [place] [address] [address] David Magana PHOSPHORUSon 03-24-2023 Phosphate [Mass/Vol] 3.6 mg/dL Normal 2.6-4.7 [facility] Comment on above: Performed By: #### ERICK Jacques, PHOS #### [facility] [address] [place] [address] Dr. David Magana PROF CHEM 8 (BAS METB)on Anion gap [Moles/Vol] 11.6 mmol/L Normal [facility] Comment on above: Performed By: #### M G, BMP, PHOS #### [facility] [address] [place] [address] [address] David Magana Calcium [Mass/Vol] 8.9 mg/dL Normal 8.5-10.1 [facility] Comment on above: Performed By: #### M G, BMP, PHOS #### [facility] [address] [place] [address] Dr. David Magana Chloride [Moles/Vol] 107 mmol/L Normal 98-107 [facility] Comment on above: Performed By: #### M G, BMP, PHOS #### [facility] [address] [place] [address] Dr. David Magana CO2 [Moles/Vol] 30.8 mmol/L Normal 21.0-32.0 [facility] Comment on above: Performed By: #### M G, BMP, PHOS #### [facility] [address] [place] [address] Dr. David Magana Creatinine [Mass/Vol] 1.67 mg/dL Critically high 0.70-1.30 [facility] Comment on above: Performed By: #### M G, BMP, PHOS #### [facility] [address] [place] [address] Dr. David Magana EGFR-AF STATELESS 48 mL/min/1.73m2 Critically low >=60 [facility] Comment on above: Performed By: #### M G, BMP, PHOS #### [facility] [address] [place] [address] Dr. David Magana EGFR-NON AF STATELESS 39 mL/min/1.73m2 Critically low >=60 [facility] [facility] Comment on above: Performed By: #### M G, BMP, PHOS #### [facility] [address] [place] [address] Dr. David Magana Glucose [Mass/Vol] 128 mg/dL Critically high 74-106 [facility] Comment on above: Performed By: #### M G, BMP, PHOS #### [facility] [address] [place] [address] Dr. David Magana Potassium [Moles/Vol] 4.4 mmol/L Normal 3.5-5.1 [facility] Comment on above: Performed By: #### ERICK Jacques, PHOS #### [facility] [address] [place] [address] Dr. David Magana Sodium [Moles/Vol] 145 mmol/L Normal 136-145 [facility] Comment on above: Performed By: #### ERICK Jacques, PHOS #### [facility] [address] [place] [address] Dr. David Magana Urea nitrogen [Mass/Vol] 25.0 mg/dL Critically high 7.0-18.0 [facility] Comment on above: Performed By: #### ERICK Jacques, PHOS #### [facility] [address] [place] [address] Dr. David Magana Urea nitrogen/Creatinine [Mass ratio] 15.0 mg/mg Normal [facility] Comment on above: Performed By: #### ERICK Jacques, PHOS #### [facility] [address] [place] [address] Dr. David Magana VITAMIN D 25 OHon 03-24-2023 VIT D 25-OH 11.6 ng/mL Normal [facility] Comment on above: Performed By: #### C BC #### [facility] [address] [place] [address] Dr. David Magana VIT D RANGES SEE BELOW Normal [facility] Comment on above: Result Comment: <20 ng/mL Vit D deficient 20 - <30 ng/mL Vit D insufficient 30 - 100 ng/mL Vit D sufficient >100 ng/mL Potential Toxicity Performed By: #### C BC #### [facility] [address] [place] [address] Dr. David Magana CBC AUTO DIFFon 02-27-2023 BASO # 0.0 103/ul Normal 0.0-0.1 [facility] Comment on above: Performed By: #### ERICK Jacques, PHOS #### [facility] [address] [place] [address] Dr. David Magana Basophils/100 WBC (Bld) 0.5 % Normal 0.2-2.0 [facility] Comment on above: Performed By: #### ERICK Jacques, PHOS #### [facility] [address] [place] [address] Dr. David Magana EO # 0.7 103/ul Normal 0.0-0.7 [facility] Comment on above: Performed By: #### ERICK Jacques, PHOS #### [facility] [address] [place] [address] Dr. David Magana Eosinophils/100 WBC (Bld) 9.3 % Critically high 0.9-7.0 [facility] Comment on above: Performed By: #### ERICK Jacques, PHOS #### [facility] [address] [place] [address] Dr. David Magana Erythrocyte distribution width (RBC) [Ratio] 14.6 % Normal 11.0-15.0 [facility] Comment on above: Performed By: #### ERICK Jacques, PHOS #### [facility] [address] [place] [address] Dr. David Magana Hematocrit (Bld) [Volume fraction] 41.5 % Critically low 42.0-54.0 [facility] Comment on above: Performed By: #### ERICK Jacques, PHOS #### [facility] [address] [place] [address] Dr. David Magana Hemoglobin (Bld) [Mass/Vol] 13.9 g/dL Critically low 14.0-18.0 [facility] Comment on above: Performed By: #### ERICK Jacques, PHOS #### [facility] [address] [place] [address] Dr. David Magana IG # 0.02 10e3/ul Normal 0.00-0.03 [facility] Comment on above: Performed By: #### ERICK Jacques, PHOS #### [facility] [address] [place] [address] Dr. David Magana IG % 0.3 % Normal 0.0-0.5 [facility] Comment on above: Performed By: #### M G, BMP, PHOS #### [facility] [address] [place] [address] Dr. David Magana LYMPH # 1.0 103/ul Critically low 1.2-3.[address] [facility] Comment on above: Performed By: #### M G, BMP, PHOS #### [facility] [address] [place] [address] Dr. David Magana Lymphocytes/100 WBC (Bld) 13.0 % Critically low 20.5-60.0 [facility] Comment on above: Performed By: #### M G, BMP, PHOS #### [facility] [address] [place] [address] Dr. David Magana MANUAL DIFF REQ NO Normal [facility] Comment on above: Performed By: #### M G, BMP, PHOS #### [facility] [address] [place] [address] Dr. David Magana MCH (RBC) [Entitic mass] 33.5 pg Normal 25.9-34.0 [facility] Comment on above: Performed By: #### M G, BMP, PHOS #### [facility] [address] [place] [address] Dr. David Magana MCHC (RBC) [Mass/Vol] 33.5 g/dL Normal 29.9-35.2 [facility] Comment on above: Performed By: #### M G, BMP, PHOS #### [facility] [address] [place] [address] Dr. David Magana MCV (RBC) [Entitic vol] 100.0 fL Critically high 80.0-94.0 [facility] Comment on above: Performed By: #### M G, BMP, PHOS #### [facility] [address] [place] [address] Dr. David Magana MONO # 0.8 103/ul Normal 0.3-0.8 [facility] Comment on above: Performed By: #### M G, BMP, PHOS #### [facility] [address] [place] [address] Dr. David Magana Monocytes/100 WBC (Bld) 10.1 % Normal 1.7-12.0 [facility] Comment on above: Performed By: #### ERICK Jacques, PHOS #### [facility] [address] [address] [address] David Magana NEUT # 5.0 103/ul Normal 1.4-6.5 [facility] Comment on above: Performed By: #### ERICK Jacques, PHOS #### [facility] [address] [place] [address] Dr. David Magana Neutrophils/100 WBC (Bld) 66.8 % Normal 43.0-75.0 [facility] Comment on above: Performed By: #### ERICK Jacques, PHOS #### [facility] [address] [place] [address] Dr. David Magana Platelet mean volume (Bld) [Entitic vol] 11.2 fL Normal 9.5-13.5 [facility] Comment on above: Performed By: #### ERICK Jacques, PHOS #### [facility] [address] [place] [address] Dr. David Magana PLT 187 103/ul Normal 150-450 [facility] Comment on above: Performed By: #### ERICK Jacques, PHOS #### [facility] [address] [place] [address] Dr. David Magana RBC 4.15 106/ul Critically low 4.70-6.[address] [facility] Comment on above: Performed By: #### ERICK Jacques, PHOS #### [facility] [address] [place] [address] Dr. David Magana WBC 7.5 103/ul Normal 4.0-11.0 [facility] Comment on above: Performed By: #### ERICK Jacques, PHOS #### [facility] [address] [place] [address] Dr. David Magana PROF 14(COMP METB)on 023 Albumin [Mass/Vol] 3.5 g/dL Normal 3.4-5.0 [facility] Comment on above: Performed By: #### A 1C #### [facility] [address] [place] [address] Dr. David Magana Albumin/Globulin [Mass ratio] 1.1 {ratio} Normal [facility] Comment on above: Performed By: #### A 1C #### [facility] [address] [place] [address] Dr. David Magana ALP [Catalytic activity/Vol] 76 U/L Normal 46-116 [facility] Comment on above: Performed By: #### A 1C #### [facility] [address] [place] [address] Dr. David Magana ALT [Catalytic activity/Vol] 23 U/L Normal 16-63 [facility] Comment on above: Performed By: #### A 1C #### [facility] [address] [place] [address] Dr. David Magana Anion gap [Moles/Vol] 13.1 mmol/L Normal [facility] Comment on above: Performed By: #### A 1C #### [facility] [address] [place] [address] Dr. David Magana AST [Catalytic activity/Vol] 17 U/L Normal 15-37 [facility] Comment on above: Performed By: #### A 1C #### [facility] [address] [place] [address] Dr. David Magana Bilirubin [Mass/Vol] 0.7 mg/dL Normal 0.2-1.0 [facility] Comment on above: Performed By: #### A 1C #### [facility] [address] [place] [address] Dr. David Magana Calcium [Mass/Vol] 9.0 mg/dL Normal 8.5-10.1 [facility] Comment on above: Performed By: #### A 1C #### [facility] [address] [place] [address] Dr. David Magana Chloride [Moles/Vol] 105 mmol/L Normal 98-107 [facility] Comment on above: Performed By: #### A 1C #### [facility] [address] [place] [address] Dr. David Magana CO2 [Moles/Vol] 29.0 mmol/L Normal 21.0-32.0 [facility] Comment on above: Performed By: #### A 1C #### [facility] [address] [address] [address] David Magana Creatinine [Mass/Vol] 1.77 mg/dL Critically high 0.70-1.30 [facility] Comment on above: Performed By: #### A 1C #### [facility] [address] [address] [address] David Magana EGFR-AF STATELESS 45 mL/min/1.73m2 Critically low >=60 [facility] Comment on above: Performed By: #### A 1C #### [facility] [address] [place] [address] Dr. David Magana EGFR-NON AF STATELESS 37 mL/min/1.73m2 Critically low >=60 [facility] Comment on above: Performed By: #### A 1C #### [facility] [address] [address] [address] David Magana Globulin (S) [Mass/Vol] 3.3 g/dL Normal [facility] Comment on above: Performed By: #### A 1C #### [facility] [address] [place] [address] Dr. David Magana Glucose [Mass/Vol] 135 mg/dL Critically high 74-106 [facility] Comment on above: Performed By: #### A 1C #### [facility] [address] [address] [address] David Magana Potassium [Moles/Vol] 4.1 mmol/L Normal 3.5-5.1 [facility] Comment on above: Performed By: #### A 1C #### [facility] [address] [address] [address] David Magana Protein [Mass/Vol] 6.8 g/dL Normal 6.4-8.2 [facility] Comment on above: Performed By: #### A 1C #### [facility] [address] [address] [address] David Magana Sodium [Moles/Vol] 143 mmol/L Normal 136-145 [facility] Comment on above: Performed By: #### A 1C #### [facility] [address] [place] [address] Dr. David Magana Urea nitrogen [Mass/Vol] 31.0 mg/dL Critically high 7.0-18.0 [facility] Comment on above: Performed By: #### A 1C #### [facility] [address] [place] [address] Dr. David Magana Urea nitrogen/Creatinine [Mass ratio] 17.5 mg/mg Normal [facility] Comment on above: Performed By: #### A 1C #### [facility] [address] [place] [address] Dr. David Magana PROTIMEon 02-27-2023 INR Coag (PPP) [Relative time] 0.99 {INR} Normal [facility] Comment on above: Performed By: #### A 1C #### [facility] [address] [place] [address] Dr. David Magana INR GUIDELINES SEE BELOW Normal [facility] Comment on above: Result Comment: IDANIA RED INR: 2.0 - 3.0 CONDITIONS NOT LISTED BELOW 2.5 - 3.5 FOR PROSTHETIC HEART VALVE REPLACEMENT 2.5 - 3.5 RECURRENT THROMBOSIS Performed By: #### A 1C #### [facility] [address] [place] [address] Dr. David Magana PT Coag (PPP) [Time] 10.5 s Normal 9.0-11.6 [facility] Comment on above: Performed By: #### A 1C #### [facility] [address] [place] [address] Dr. David Magana PTTon 02-27-2023 aPTT Coag (Bld) [Time] 33.0 s Normal 22.3-36.2 [facility] Comment on above: Performed By: #### P OCGLUC #### [facility] [address] [place] [address] Dr. David Magana ALBUMINon 12-28-2022 Albumin [Mass/Vol] 3.6 g/dL Normal 3.4-5.0 [facility] Comment on above: Performed By: #### C BC #### [facility] [address] [address] [address] David Magana GLYCOHEMOGLOBIN A1Con 2022 ADA RECOMMENDATION SEE BELOW Normal [facility] Comment on above: Result Comment: ADA RECOMMENDED LIMIT 4.0 - 6.0 ADA THERAPEUTIC TARGET < 7.0 ACTION SUGGESTED > 7.0 Performed By: #### P OCGLUC #### [facility] [address] [place] [address] Dr. David Magana Glucose [Mass/Vol] 140 mg/dL Normal [facility] Comment on above: Performed By: #### P OCGLUC #### [facility] [address] [place] [address] Dr. David Magana HbA1c (Bld) [Mass fraction] 6.5 % Critically high 4.5-6.2 [facility] Comment on above: Performed By: #### P OCGLUC #### [facility] [address] [place] [address] Dr. David Magana MAGNESIUMon 12-28-2022 Magnesium [Mass/Vol] 2.3 mg/dL Normal 1.8-2.4 [facility] Comment on above: Performed By: #### P OCGLUC #### [facility] [address] [place] [address] Dr. Daivd Magana PROF CHEM 8 (BAS METB)on Anion gap [Moles/Vol] 13.2 mmol/L Normal [facility] Comment on above: Performed By: #### P OCGLUC #### [facility] [address] [place] [address] Dr. David Magana Calcium [Mass/Vol] 9.0 mg/dL Normal 8.5-10.1 [facility] Comment on above: Performed By: #### P OCGLUC #### [facility] [address] [place] [address] Dr. David Magana Chloride [Moles/Vol] 105 mmol/L Normal 98-107 [facility] Comment on above: Performed By: #### P OCGLUC #### [facility] [address] [address] [address] David Magana CO2 [Moles/Vol] 28.9 mmol/L Normal 21.0-32.0 [facility] Comment on above: Performed By: #### P OCGLUC #### [facility] [address] [address] [address] David Magana Creatinine [Mass/Vol] 1.66 mg/dL Critically high 0.70-1.30 [facility] Comment on above: Performed By: #### P OCGLUC #### [facility] [address] [address] [address] David Magana EGFR-AF STATELESS 48 mL/min/1.73m2 Critically low >=60 [facility] Comment on above: Performed By: #### P OCGLUC #### [facility] [address] [address] [address] David Magana EGFR-NON AF STATELESS 40 mL/min/1.73m2 Critically low >=60 [facility] Comment on above: Performed By: #### P OCGLUC #### [facility] [address] [address] [address] David Magana Glucose [Mass/Vol] 123 mg/dL Critically high 74-106 [facility] Comment on above: Performed By: #### P OCGLUC #### [facility] [address] [address] [address] David Magana Potassium [Moles/Vol] 4.1 mmol/L Normal 3.5-5.1 [facility] Comment on above: Performed By: #### P OCGLUC #### [facility] [address] [address] [address] David Magana Sodium [Moles/Vol] 143 mmol/L Normal 136-145 [facility] Comment on above: Performed By: #### P OCGLUC #### [facility] [address] [address] [address] David Magana Urea nitrogen [Mass/Vol] 29.0 mg/dL Critically high 7.0-18.0 [facility] Comment on above: Performed By: #### P OCGLUC #### [facility] [address] [place] [address] Dr. David Magana Urea nitrogen/Creatinine [Mass ratio] 17.5 mg/mg Normal [facility] Comment on above: Performed By: #### P OCGLUC #### [facility] [address] [place] [address] Dr. David Magana URINE T PROTEIN CREAT RATIOo n 12-28-2022 UR TOTAL PROTEIN <6.0 Normal <=12.0 [facility] Comment on above: Performed By: #### ERICK Jacques, PHOS #### [facility] [address] [place] [address] Dr. David Magana URINE CREAT 41.21 mg/dL Normal 20.00-300.[address] [facility] Comment on above: Performed By: #### ERICK Jacques, PHOS #### [facility] [address] [place] [address] Dr. David Magana ALBUMINon 11-16-2022 Albumin [Mass/Vol] 3.3 g/dL Critically low 3.4-5.0 [facility] Comment on above: Performed By: #### C BC #### [facility] [address] [place] [address] Dr. David Magana CREATININE URINEon 3 URINE CREAT 19.69 mg/dL Critically low 20.00-300.00 [facility] Comment on above: Performed By: #### M ERICK Faith, PHOS #### [facility] [address] [place] [address] Dr. David Magana HEMOGLOBINon 11-16-2022 Hemoglobin (Bld) [Mass/Vol] 14.9 g/dL Normal 14.0-18.0 [facility] Comment on above: Performed By: #### M ERICK Faith, PHOS #### [facility] [address] [place] [address] Dr. David Magana MAGNESIUMon 11-16-2022 Magnesium [Mass/Vol] 2.2 mg/dL Normal 1.8-2.4 [facility] Comment on above: Performed By: #### C BC #### [facility] [address] [place] [address] Dr. David Magana PHOSPHORUSon 11-16-2022 Phosphate [Mass/Vol] 3.9 mg/dL Normal 2.6-4.7 [facility] Comment on above: Performed By: #### C BC #### [facility] [address] [place] [address] Dr. David Magana PROF CHEM 8 (BAS METB)on Anion gap [Moles/Vol] 11.9 mmol/L Normal [facility] Comment on above: Performed By: #### C BC #### [facility] [address] [place] [address] Dr. David Magana Calcium [Mass/Vol] 8.8 mg/dL Normal 8.5-10.1 [facility] Comment on above: Performed By: #### C BC #### [facility] [address] [place] [address] Dr. David Magana Chloride [Moles/Vol] 104 mmol/L Normal 98-107 [facility] Comment on above: Performed By: #### C BC #### [facility] [address] [place] [address] Dr. David Magana CO2 [Moles/Vol] 27.4 mmol/L Normal 21.0-32.0 [facility] Comment on above: Performed By: #### C BC #### [facility] [address] [place] [address] Dr. David Magana Creatinine [Mass/Vol] 1.68 mg/dL Critically high 0.70-1.30 [facility] Comment on above: Performed By: #### C BC #### [facility] [address] [place] [address] Dr. David Magana EGFR-AF STATELESS 48 mL/min/1.73m2 Critically low >=60 [facility] Comment on above: Performed By: #### C BC #### [facility] [address] [place] [address] Dr. David Magana EGFR-NON AF STATELESS 39 mL/min/1.73m2 Critically low >=60 [facility] Comment on above: Performed By: #### C BC #### [facility] [address] [address] [address] David Magana Glucose [Mass/Vol] 212 mg/dL Critically high 74-106 [facility] Comment on above: Performed By: #### C BC #### [facility] [address] [address] [address] David Maagna Potassium [Moles/Vol] 4.3 mmol/L Normal 3.5-5.1 [facility] Comment on above: Performed By: #### C BC #### [facility] [address] [address] [address] David Magana Sodium [Moles/Vol] 139 mmol/L Normal 136-145 [facility] Comment on above: Performed By: #### C BC #### [facility] [address] [address] [address] David Magana Urea nitrogen [Mass/Vol] 25.0 mg/dL Critically high 7.0-18.0 [facility] Comment on above: Performed By: #### C BC #### [facility] [address] [address] [address] David Magana Urea nitrogen/Creatinine [Mass ratio] 14.9 mg/mg Normal [facility] Comment on above: Performed By: #### C BC #### [facility] [address] [address] [address] David Magana PROTEIN RAND URINEon 023 UR PROT <5.0 Normal <=11.9 [facility] Comment on above: Performed By: #### M G, BMP, PHOS #### [facility] [address] [address] [address] David Magana US KARI DOP LEG [...] CLOVER PEREZ Date: 2022-11-02 16:21 Normal [facility] BNPon 07-22-2022 Natriuretic peptide B (Bld) [Mass/Vol] 2143.0 pg/mL Critically high <=1,800.0 [facility] Comment on above: Performed By: #### M G, BMP, PHOS #### [facility] [address] [place] [address] Dr. David Magana CBC AUTO DIFFon 07-22-2022 BASO # 0.0 103/ul Normal 0.0-0.1 [facility] Comment on above: Performed By: #### A 1C #### [facility] [address] [place] [address] Dr. David Magana Basophils/100 WBC (Bld) 0.3 % Normal 0.2-2.0 [facility] Comment on above: Performed By: #### A 1C #### [facility] [address] [place] [address] Dr. David Magana EO # 0.3 103/ul Normal 0.0-0.7 [facility] Comment on above: Performed By: #### A 1C #### [facility] [address] [place] [address] Dr. David Magana Eosinophils/100 WBC (Bld) 2.4 % Normal 0.9-7.0 [facility] Comment on above: Performed By: #### A 1C #### [facility] [address] [place] [address] Dr. David Magana Erythrocyte distribution width (RBC) [Ratio] 13.4 % Normal 11.0-15.0 [facility] Comment on above: Performed By: #### A 1C #### [facility] [address] [place] [address] Dr. David Magana Hematocrit (Bld) [Volume fraction] 42.7 % Normal 42.0-54.0 [facility] Comment on above: Performed By: #### A 1C #### [facility] [address] [address] [address] David Magana Hemoglobin (Bld) [Mass/Vol] 14.2 g/dL Normal 14.0-18.0 [facility] Comment on above: Performed By: #### A 1C #### [facility] [address] [address] [address] David Magana IG # 0.18 10e3/ul Critically high 0.00-0.03 [facility] Comment on above: Performed By: #### A 1C #### [facility] [address] [address] [address] David Magana IG % 1.6 % Critically high 0.0-0.5 [facility] Comment on above: Performed By: #### A 1C #### [facility] [address] [address] [address] David Magana LYMPH # 0.9 103/ul Critically low 1.2-3.[address] [facility] Comment on above: Performed By: #### A 1C #### [facility] [address] [address] [address] David Magana Lymphocytes/100 WBC (Bld) 8.1 % Critically low 20.5-60.0 [facility] Comment on above: Performed By: #### A 1C #### [facility] [address] [address] [address] David Magana MANUAL DIFF REQ NO Normal [facility] Comment on above: Performed By: #### A 1C #### [facility] [address] [address] [address] David Magana MCH (RBC) [Entitic mass] 33.3 pg Normal 25.9-34.0 [facility] Comment on above: Performed By: #### A 1C #### [facility] [address] [address] [address] David Magana MCHC (RBC) [Mass/Vol] 33.3 g/dL Normal 29.9-35.2 [facility] Comment on above: Performed By: #### A 1C #### [facility] [address] [address] [address] David Magana MCV (RBC) [Entitic vol] 100.2 fL Critically high 80.0-94.0 [facility] Comment on above: Performed By: #### A 1C #### [facility] [address] [address] [address] David Magana MONO # 1.2 103/ul Critically high 0.3-0.8 [facility] Comment on above: Performed By: #### A 1C #### [facility] [address] [address] [address] David Magana Monocytes/100 WBC (Bld) 10.5 % Normal 1.7-12.0 [facility] Comment on above: Performed By: #### A 1C #### [facility] [address] [place] [address] Dr. David Magana NEUT # 8.9 103/ul Critically high 1.4-6.5 [facility] Comment on above: Performed By: #### A 1C #### [facility] [address] [place] [address] Dr. David Magana Neutrophils/100 WBC (Bld) 77.1 % Critically high 43.0-75.0 [facility] Comment on above: Performed By: #### A 1C #### [facility] [address] [place] [address] Dr. David Magana Platelet mean volume (Bld) [Entitic vol] 11.3 fL Normal 9.5-13.5 [facility] Comment on above: Performed By: #### A 1C #### [facility] [address] [place] [address] Dr. David Magana PLT 175 103/ul Normal 150-450 [facility] Comment on above: Performed By: #### A 1C #### [facility] [address] [place] [address] Dr[address] David Magana RBC 4.26 106/ul Critically low 4.70-6.[address] [facility] Comment on above: Performed By: #### A 1C #### [facility] [address] [address] [address] David Magana WBC 11.5 103/ul Critically high 4.0-11.0 [facility] Comment on above: Performed By: #### A 1C #### [facility] [address] [address] [address] David Magana PROF 14(COMP METB)on 022 Albumin [Mass/Vol] 2.6 g/dL Critically low 3.4-5.0 [facility] Comment on above: Performed By: #### M G, BMP, PHOS #### [facility] [address] [address] [address] David Magana Albumin/Globulin [Mass ratio] 0.9 {ratio} Normal [facility] Comment on above: Performed By: #### M Marcell, BMP, PHOS #### [facility] [address] [address] [address] David Magana ALP [Catalytic activity/Vol] 49 U/L Normal 46-116 [facility] Comment on above: Performed By: #### M G, BMP, PHOS #### [facility] [address] [address] [address] David Magana ALT [Catalytic activity/Vol] 25 U/L Normal 16-63 [facility] Comment on above: Performed By: #### M G, BMP, PHOS #### [facility] [address] [address] [address] David Magana Anion gap [Moles/Vol] 12.8 mmol/L Normal [facility] Comment on above: Performed By: #### M G, BMP, PHOS #### [facility] [address] [address] [address] David Magana AST [Catalytic activity/Vol] 9 U/L Critically low 15-37 [facility] Comment on above: Performed By: #### M G, BMP, PHOS #### [facility] [address] [address] [address] David Magana Bilirubin [Mass/Vol] 0.5 mg/dL Normal 0.2-1.0 [facility] Comment on above: Performed By: #### M Marcell BMP, PHOS #### [facility] [address] [place] [address] Dr. David Magana Calcium [Mass/Vol] 8.3 mg/dL Critically low 8.5-10.1 [facility] Comment on above: Performed By: #### M Marcell BMP, PHOS #### [facility] [address] [place] [address] Dr. David Magana Chloride [Moles/Vol] 105 mmol/L Normal 98-107 [facility] Comment on above: Performed By: #### M ERICK Faith, PHOS #### [facility] [address] [place] [address] Dr. David Magana CO2 [Moles/Vol] 24.2 mmol/L Normal 21.0-32.0 [facility] Comment on above: Performed By: #### ERICK Jacques, PHOS #### [facility] [address] [place] [address] Dr. David Magana Creatinine [Mass/Vol] 1.28 mg/dL Normal 0.70-1.30 [facility] Comment on above: Performed By: #### ERICK Jacques, PHOS #### [facility] [address] [place] [address] Dr. David Magana EGFR-AF STATELESS >60 Normal >=60 [facility] Comment on above: Performed By: #### ERICK Jacques, PHOS #### [facility] [address] [place] [address] Dr. David Magana EGFR-NON AF STATELESS 54 mL/min/1.73m2 Critically low >=60 [facility] Comment on above: Performed By: #### M Marcell BMP, PHOS #### [facility] [address] [place] [address] Dr. David Magana Globulin (S) [Mass/Vol] 2.9 g/dL Normal [facility] Comment on above: Performed By: #### M Marcell BMP, PHOS #### [facility] [address] [place], [place] [id number] Dr. David Magana Glucose [Mass/Vol] 205 mg/dL Critically high 74-106 [facility] Comment on above: Performed By: #### M ERICK Faith, PHOS #### [facility] [address] [place] [address] Dr. David Magana Potassium [Moles/Vol] 4.0 mmol/L Normal 3.5-5.1 [facility] Comment on above: Performed By: #### M Marcell BMP, PHOS #### [facility] [address] [place] [address] Dr. David Magana Protein [Mass/Vol] 5.5 g/dL Critically low 6.4-8.2 [facility] Comment on above: Performed By: #### M Marcell BMP, PHOS #### [facility] [address] [place] [address] Dr. David Magana Sodium [Moles/Vol] 138 mmol/L Normal 136-145 [facility] Comment on above: Performed By: #### M Marcell BMP, PHOS #### [facility] [address] [place] [address] Dr. David Magana Urea nitrogen [Mass/Vol] 36.0 mg/dL Critically high 7.0-18.0 [facility] Comment on above: Performed By: #### M Marcell BMP, PHOS #### [facility] [address] [place] [address] Dr. David Magana Urea nitrogen/Creatinine [Mass ratio] 28.1 mg/mg Normal [facility] Comment on above: Performed By: #### M Marcell, BMP, PHOS #### [facility] [address] [place] [address] Dr. David Magana BNPon 07-21-2022 Natriuretic peptide B (Bld) [Mass/Vol] 3485.0 pg/mL Critically high <=1,800.0 [facility] Comment on above: Result Comment: repe ated Performed By: #### A 1C #### [facility] [address] [place] [address] Dr. David Magana CBC AUTO DIFFon 07-21-2022 BASO # 0.0 103/ul Normal 0.0-0.1 [facility] Comment on above: Performed By: #### C BC #### [facility] [address] [address] [address] David Magana Basophils/100 WBC (Bld) 0.3 % Normal 0.2-2.0 [facility] Comment on above: Performed By: #### C BC #### [facility] [address] [address] [address] David Magana EO # 0.2 103/ul Normal 0.0-0.7 [facility] Comment on above: Performed By: #### C BC #### [facility] [address] [place] [address] Dr. David Magana Eosinophils/100 WBC (Bld) 1.9 % Normal 0.9-7.0 [facility] Comment on above: Performed By: #### C BC #### [facility] [address] [place] [address] Dr. David Magana Erythrocyte distribution width (RBC) [Ratio] 13.4 % Normal 11.0-15.0 [facility] Comment on above: Performed By: #### C BC #### [facility] [address] [place] [address] Dr. David Magana Hematocrit (Bld) [Volume fraction] 42.5 % Normal 42.0-54.0 [facility] Comment on above: Performed By: #### C BC #### [facility] [address] [place] [address] Dr. David Magana Hemoglobin (Bld) [Mass/Vol] 14.2 g/dL Normal 14.0-18.0 [facility] Comment on above: Performed By: #### C BC #### [facility] [address] [place] [address] Dr. David aMgana IG # 0.22 10e3/ul Critically high 0.00-0.03 [facility] Comment on above: Performed By: #### C BC #### [facility] [address] [place] [address] Dr. David Magana IG % 2.1 % Critically high 0.0-0.5 [facility] Comment on above: Performed By: #### C BC #### [facility] [address] [place] [address] Dr. David Magana LYMPH # 0.8 103/ul Critically low 1.2-3.[address] [facility] Comment on above: Performed By: #### C BC #### [facility] [address] [place] [address] Dr. David Magana Lymphocytes/100 WBC (Bld) 7.7 % Critically low 20.5-60.0 [facility] Comment on above: Performed By: #### C BC #### [facility] [address] [place] [address] Dr. David Magana MANUAL DIFF REQ NO Normal [facility] Comment on above: Performed By: #### C BC #### [facility] [address] [place] [address] Dr. David Magana MCH (RBC) [Entitic mass] 33.0 pg Normal 25.9-34.0 [facility] Comment on above: Performed By: #### C BC #### [facility] [address] [place] [address] Dr. David Magana MCHC (RBC) [Mass/Vol] 33.4 g/dL Normal 29.9-35.2 [facility] Comment on above: Performed By: #### C BC #### [facility] [address] [place] [address] Dr. David Magana MCV (RBC) [Entitic vol] 98.8 fL Critically high 80.0-94.0 [facility] Comment on above: Performed By: #### C BC #### [facility] [address] [place] [address] Dr. David Magana MONO # 1.0 103/ul Critically high 0.3-0.8 [facility] Comment on above: Performed By: #### C BC #### [facility] [address] [place] [address] Dr. David Magana Monocytes/100 WBC (Bld) 9.7 % Normal 1.7-12.0 [facility] Comment on above: Performed By: #### C BC #### [facility] [address] [place] [address] Dr. David Magana NEUT # 8.1 103/ul Critically high 1.4-6.5 [facility] Comment on above: Performed By: #### C BC #### [facility] [address] [place] [address] Dr. David Magana Neutrophils/100 WBC (Bld) 78.3 % Critically high 43.0-75.0 [facility] Comment on above: Performed By: #### C BC #### [facility] [address] [place] [address] Dr. David Magana Platelet mean volume (Bld) [Entitic vol] 10.7 fL Normal 9.5-13.5 [facility] Comment on above: Performed By: #### C BC #### [facility] [address] [place] [address] Dr. David Magana PLT 177 103/ul Normal 150-450 [facility] Comment on above: Performed By: #### C BC #### [facility] [address] [place] [address] Dr. David Magana RBC 4.30 106/ul Critically low 4.70-6.10 [facility] Comment on above: Performed By: #### C BC #### [facility] [address] [place] [address] Dr. David Magana WBC 10.4 103/ul Normal 4.0-11.0 [facility] Comment on above: Performed By: #### C BC #### [facility] [address] [place] [address] Dr. David Magana PROF 14(COMP METB)on 022 Albumin [Mass/Vol] 2.6 g/dL Critically low 3.4-5.0 [facility] Comment on above: Performed By: #### A 1C #### [facility] [address] [place] [address] Dr. David Magana Albumin/Globulin [Mass ratio] 1.0 {ratio} Normal [facility] Comment on above: Performed By: #### A 1C #### [facility] [address] [address] [address] David Magana ALP [Catalytic activity/Vol] 50 U/L Normal 46-116 [facility] Comment on above: Performed By: #### A 1C #### [facility] [address] [address] [address] David Magana ALT [Catalytic activity/Vol] 28 U/L Normal 16-63 [facility] Comment on above: Performed By: #### A 1C #### [facility] [address] [address] [address] David Magana Anion gap [Moles/Vol] 11.4 mmol/L Normal [facility] Comment on above: Performed By: #### A 1C #### [facility] [address] [place] [address] Dr. David Magana AST [Catalytic activity/Vol] 13 U/L Critically low 15-37 [facility] Comment on above: Performed By: #### A 1C #### [facility] [address] [place] [address] Dr. David Magana Bilirubin [Mass/Vol] 0.4 mg/dL Normal 0.2-1.0 [facility] Comment on above: Performed By: #### A 1C #### [facility] [address] [place] [address] Dr. David Magana Calcium [Mass/Vol] 8.4 mg/dL Critically low 8.5-10.1 [facility] Comment on above: Performed By: #### A 1C #### [facility] [address] [address] [address] David Magana Chloride [Moles/Vol] 107 mmol/L Normal 98-107 [facility] Comment on above: Performed By: #### A 1C #### [facility] [address] [place] [address] Dr. David Magana CO2 [Moles/Vol] 24.6 mmol/L Normal 21.0-32.0 [facility] Comment on above: Performed By: #### A 1C #### [facility] [address] [address] [address] David Magana Creatinine [Mass/Vol] 1.26 mg/dL Normal 0.70-1.30 [facility] Comment on above: Performed By: #### A 1C #### [facility] [address] [address] [address] David Magana EGFR-AF STATELESS >60 Normal >=60 [facility] Comment on above: Performed By: #### A 1C #### [facility] [address] [address] [address] David Magana EGFR-NON AF STATELESS 55 mL/min/1.73m2 Critically low >=60 [facility] Comment on above: Performed By: #### A 1C #### [facility] [address] [place] [address] Dr. David Magana Globulin (S) [Mass/Vol] 2.7 g/dL Normal [facility] Comment on above: Performed By: #### A 1C #### [facility] [address] [address] [address] David Magana Glucose [Mass/Vol] 203 mg/dL Critically high 74-106 [facility] Comment on above: Performed By: #### A 1C #### [facility] [address] [address] [address] David Magana Potassium [Moles/Vol] 4.0 mmol/L Normal 3.5-5.1 [facility] Comment on above: Performed By: #### A 1C #### [facility] [address] [address] [address] David Magana Protein [Mass/Vol] 5.3 g/dL Critically low 6.4-8.2 [facility] Comment on above: Performed By: #### A 1C #### [facility] [address] [address] [address] David Magana Sodium [Moles/Vol] 139 mmol/L Normal 136-145 [facility] Comment on above: Performed By: #### A 1C #### [facility] [address] [place] [address] Dr. David Magana Urea nitrogen [Mass/Vol] 33.0 mg/dL Critically high 7.0-18.0 [facility] Comment on above: Performed By: #### A 1C #### [facility] [address] [place] [address] Dr. David Magana Urea nitrogen/Creatinine [Mass ratio] 26.2 mg/mg Normal [facility] Comment on above: Performed By: #### A 1C #### [facility] [address] [place] [address] Dr. David Magana BNPon 07-20-2022 Natriuretic peptide B (Bld) [Mass/Vol] 7478.0 pg/mL Critically high <=1,800.0 [facility] Comment on above: Performed By: #### A 1C #### [facility] [address] [place] [address] Dr. David Magana CBC AUTO DIFFon 07-20-2022 BASO # 0.1 103/ul Normal 0.0-0.1 [facility] Comment on above: Performed By: #### M ERICK Faith, PHOS #### [facility] [address] [place] [address] Dr. David Magana Basophils/100 WBC (Bld) 0.8 % Normal 0.2-2.0 [facility] Comment on above: Performed By: #### ERICK Jacques, PHOS #### [facility] [address] [place] [address] Dr. David Magana EO # 0.1 103/ul Normal 0.0-0.7 [facility] Comment on above: Performed By: #### M Marcell BMP, PHOS #### [facility] [address] [place] [address] Dr. David Magana Eosinophils/100 WBC (Bld) 0.6 % Critically low 0.9-7.0 [facility] Comment on above: Performed By: #### M Marcell BMP, PHOS #### [facility] [address] [place] [address] Dr. David Magana Erythrocyte distribution width (RBC) [Ratio] 13.4 % Normal 11.0-15.0 [facility] Comment on above: Performed By: #### M ERICK Faith, PHOS #### [facility] [address] [place] [address] Dr. David Magana Hematocrit (Bld) [Volume fraction] 43.2 % Normal 42.0-54.0 [facility] Comment on above: Performed By: #### M ERICK Faith, PHOS #### [facility] [address] [place] [address] Dr. David Magana Hemoglobin (Bld) [Mass/Vol] 14.2 g/dL Normal 14.0-18.0 [facility] Comment on above: Performed By: #### M ERICK Faith, PHOS #### [facility] [address] [place] [address] Dr. David Magana IG # 0.21 10e3/ul Critically high 0.00-0.03 [facility] Comment on above: Performed By: #### ERICK Jacques, PHOS #### [facility] [address] [place] [address] Dr. David Magana IG % 2.0 % Critically high 0.0-0.5 [facility] Comment on above: Performed By: #### M ERICK Faith, PHOS #### [facility] [address] [place] [address] Dr. David Magana LYMPH # 0.8 103/ul Critically low 1.2-3.8 [facility] Comment on above: Performed By: #### M ERICK Faith, PHOS #### [facility] [address] [place] [address] Dr. David Magana Lymphocytes/100 WBC (Bld) 7.7 % Critically low 20.5-60.0 [facility] Comment on above: Performed By: #### M ERICK Faith, PHOS #### [facility] [address] [place] [address] Dr. David Magana MANUAL DIFF REQ NO Normal [facility] Comment on above: Performed By: #### M G, BMP, PHOS #### [facility] [address] [place] [address] Dr. David Magana MCH (RBC) [Entitic mass] 33.2 pg Normal 25.9-34.0 [facility] Comment on above: Performed By: #### M G, BMP, PHOS #### [facility] [address] [place] [address] Dr. David Magana MCHC (RBC) [Mass/Vol] 32.9 g/dL Normal 29.9-35.2 [facility] Comment on above: Performed By: #### M Marcell, BMP, PHOS #### [facility] [address] [place] [address] Dr. David Magana MCV (RBC) [Entitic vol] 100.9 fL Critically high 80.0-94.0 [facility] Comment on above: Performed By: #### M ERICK Faith, PHOS #### [facility] [address] [place] [address] Dr. David Magana MONO # 1.0 103/ul Critically high 0.3-0.[address] [facility] Comment on above: Performed By: #### M ERICK Faith, PHOS #### [facility] [address] [place] [address] Dr. David Magana Monocytes/100 WBC (Bld) 10.0 % Normal 1.7-12.0 [facility] Comment on above: Performed By: #### M ERICK Faith, PHOS #### [facility] [address] [place] [address] Dr. David Magana NEUT # 8.1 103/ul Critically high 1.4-6.[address] [facility] Comment on above: Performed By: #### M ERICK Faith, PHOS #### [facility] [address] [place] [address] Dr. David Magana Neutrophils/100 WBC (Bld) 78.9 % Critically high 43.0-75.0 [facility] Comment on above: Performed By: #### M ERICK Faith, PHOS #### [facility] [address] [address] [address] David Magana Platelet mean volume (Bld) [Entitic vol] 10.8 fL Normal 9.5-13.5 [facility] Comment on above: Performed By: #### ERICK Jacques, PHOS #### [facility] [address] [address] [address] David Magana PLT 172 103/ul Normal 150-450 [facility] Comment on above: Performed By: #### ERICK Jacques, PHOS #### [facility] [address] [address] [address] David Magana RBC 4.28 106/ul Critically low 4.70-6.10 [facility] Comment on above: Performed By: #### ERICK Jacques, PHOS #### [facility] [address] [place] [address] Dr. David Magana WBC 10.3 103/ul Normal 4.0-11.0 [facility] Comment on above: Performed By: #### ERICK Jacques, PHOS #### [facility] [address] [address] [address] David Magana CULTURE URINEon 07-20-2022 CULTURE [...] Trimethoprim/Sulfameth oxazole >=320 R F Normal [facility] Comment on above: Performed By: #### ERICK Jacques, PHOS #### [facility] [address] [place] [address] Dr. David Magana PROF 14(COMP METB)on 022 Albumin [Mass/Vol] 2.6 g/dL Critically low 3.4-5.0 [facility] Comment on above: Performed By: #### A 1C #### [facility] [address] [place] [address] Dr. David Magana Albumin/Globulin [Mass ratio] 0.9 {ratio} Normal [facility] Comment on above: Performed By: #### A 1C #### [facility] [address] [place] [address] Dr. David Magana ALP [Catalytic activity/Vol] 48 U/L Normal 46-116 [facility] Comment on above: Performed By: #### A 1C #### [facility] [address] [place] [address] Dr. David Magana ALT [Catalytic activity/Vol] 27 U/L Normal 16-63 [facility] Comment on above: Performed By: #### A 1C #### [facility] [address] [place] [address] Dr. David Magana Anion gap [Moles/Vol] 13.4 mmol/L Normal [facility] Comment on above: Performed By: #### A 1C #### [facility] [address] [place] [address] Dr. David Magana AST [Catalytic activity/Vol] 22 U/L Normal 15-37 [facility] Comment on above: Performed By: #### A 1C #### [facility] [address] [place] [address] Dr. David Magana Bilirubin [Mass/Vol] 0.5 mg/dL Normal 0.2-1.0 [facility] Comment on above: Performed By: #### A 1C #### [facility] [address] [place] [address] Dr. David Magana Calcium [Mass/Vol] 8.3 mg/dL Critically low 8.5-10.1 [facility] Comment on above: Performed By: #### A 1C #### [facility] [address] [place] [address] Dr. David Magana Chloride [Moles/Vol] 105 mmol/L Normal 98-107 [facility] Comment on above: Performed By: #### A 1C #### [facility] [address] [address] [address] David Magana CO2 [Moles/Vol] 21.0 mmol/L Normal 21.0-32.0 [facility] Comment on above: Performed By: #### A 1C #### [facility] [address] [address] [address] David Magana Creatinine [Mass/Vol] 1.38 mg/dL Critically high 0.70-1.30 [facility] Comment on above: Performed By: #### A 1C #### [facility] [address] [address] [address] David Magana EGFR-AF STATELESS 60 mL/min/1.73m2 Normal >=60 [facility] Comment on above: Performed By: #### A 1C #### [facility] [address] [place] [address] Dr. David Magana EGFR-NON AF STATELESS 49 mL/min/1.73m2 Critically low >=60 [facility] Comment on above: Performed By: #### A 1C #### [facility] [address] [address] [address] David Magana Globulin (S) [Mass/Vol] 2.8 g/dL Normal [facility] Comment on above: Performed By: #### A 1C #### [facility] [address] [address] [address] David Magana Glucose [Mass/Vol] 156 mg/dL Critically high 74-106 [facility] Comment on above: Performed By: #### A 1C #### [facility] [address] [address] [address] David Magana Potassium [Moles/Vol] 4.4 mmol/L Normal 3.5-5.1 [facility] Comment on above: Performed By: #### A 1C #### [facility] [address] [address] [address] David Magana Protein [Mass/Vol] 5.4 g/dL Critically low 6.4-8.2 [facility] Comment on above: Performed By: #### A 1C #### [facility] [address] [place] [address] Dr. David Magana Sodium [Moles/Vol] 135 mmol/L Critically low 136-145 [facility] Comment on above: Performed By: #### A 1C #### [facility] [address] [place] [address] Dr. David Magana Urea nitrogen [Mass/Vol] 40.0 mg/dL Critically high 7.0-18.0 [facility] Comment on above: Performed By: #### A 1C #### [facility] [address] [place] [address] Dr. David Magana Urea nitrogen/Creatinine [Mass ratio] 29.0 mg/mg Normal [facility] Comment on above: Performed By: #### A 1C #### [facility] [address] [place] [address] Dr. David Magana BNPon 07-19-2022 Natriuretic peptide B (Bld) [Mass/Vol] 38993.0 pg/mL Critically high <=1,800.0 [facility] Comment on above: Performed By: #### C VDTBH #### [facility] [address] [place] [address] Dr. David Magana CBC AUTO DIFFon 07-19-2022 BASO # 0.0 103/ul Normal 0.0-0.1 [facility] Comment on above: Performed By: #### C BC #### [facility] [address] [place] [address] Dr. David Magana Basophils/100 WBC (Bld) 0.3 % Normal 0.2-2.0 [facility] Comment on above: Performed By: #### C BC #### [facility] [address] [place] [address] Dr. David Magana EO # 0.0 103/ul Normal 0.0-0.7 [facility] Comment on above: Performed By: #### C BC #### [facility] [address] [place] [address] Dr. David Magana Eosinophils/100 WBC (Bld) 0.2 % Critically low 0.9-7.0 [facility] Comment on above: Performed By: #### C BC #### [facility] [address] [place] [address] Dr. David Magana Erythrocyte distribution width (RBC) [Ratio] 13.4 % Normal 11.0-15.0 [facility] Comment on above: Performed By: #### C BC #### [facility] [address] [place] [address] Dr. David Magana Hematocrit (Bld) [Volume fraction] 43.4 % Normal 42.0-54.0 [facility] Comment on above: Performed By: #### C BC #### [facility] [address] [place] [address] Dr. David Magana Hemoglobin (Bld) [Mass/Vol] 14.6 g/dL Normal 14.0-18.0 [facility] Comment on above: Performed By: #### C BC #### [facility] [address] [place] [address] Dr. David Magana IG # 0.18 10e3/ul Critically high 0.00-0.03 [facility] Comment on above: Performed By: #### C BC #### [facility] [address] [place] [address] Dr. David Magana IG % 1.5 % Critically high 0.0-0.5 [facility] Comment on above: Performed By: #### C BC #### [facility] [address] [place] [address] Dr. David Magana LYMPH # 0.8 103/ul Critically low 1.2-3.8 [facility] Comment on above: Performed By: #### C BC #### [facility] [address] [place] [address] Dr. David Magana Lymphocytes/100 WBC (Bld) 6.6 % Critically low 20.5-60.0 [facility] Comment on above: Performed By: #### C BC #### [facility] [address] [place] [address] Dr. David Magana MANUAL DIFF REQ NO Normal [facility] Comment on above: Performed By: #### C BC #### [facility] [address] [address] [address] David Magana MCH (RBC) [Entitic mass] 33.7 pg Normal 25.9-34.0 [facility] Comment on above: Performed By: #### C BC #### [facility] [address] [place] [address] Dr. David Magana MCHC (RBC) [Mass/Vol] 33.6 g/dL Normal 29.9-35.2 [facility] Comment on above: Performed By: #### C BC #### [facility] [address] [place] [address] Dr. David Magana MCV (RBC) [Entitic vol] 100.2 fL Critically high 80.0-94.0 [facility] Comment on above: Performed By: #### C BC #### [facility] [address] [place] [address] Dr. David Magana MONO # 1.1 103/ul Critically high 0.3-0.8 [facility] Comment on above: Performed By: #### C BC #### [facility] [address] [place] [address] Dr. David Magana Monocytes/100 WBC (Bld) 9.3 % Normal 1.7-12.0 [facility] Comment on above: Performed By: #### C BC #### [facility] [address] [place] [address] Dr. David Magana NEUT # 9.6 103/ul Critically high 1.4-6.5 [facility] Comment on above: Performed By: #### C BC #### [facility] [address] [place] [address] Dr. David Magana Neutrophils/100 WBC (Bld) 82.1 % Critically high 43.0-75.0 [facility] Comment on above: Performed By: #### C BC #### [facility] [address] [place] [address] Dr. David Magana Platelet mean volume (Bld) [Entitic vol] 10.8 fL Normal 9.5-13.5 [facility] Comment on above: Performed By: #### C BC #### [facility] [address] [place] [address] Dr. David Magana PLT 202 103/ul Normal 150-450 [facility] Comment on above: Performed By: #### C BC #### [facility] [address] [address] [address] David Magana RBC 4.33 106/ul Critically low 4.70-6.10 [facility] Comment on above: Performed By: #### C BC #### [facility] [address] [address] [address] David Magana WBC 11.7 103/ul Critically high 4.0-11.0 [facility] Comment on above: Performed By: #### C BC #### [facility] [address] [place] [address] Dr. David Magana PROF 14(COMP METB)on 022 Albumin [Mass/Vol] 3.4 g/dL Normal 3.4-5.0 [facility] Comment on above: Performed By: #### A 1C #### [facility] [address] [place] [address] Dr. David Magana Albumin/Globulin [Mass ratio] 1.1 {ratio} Normal [facility] Comment on above: Performed By: #### A 1C #### [facility] [address] [place] [address] Dr. David Magana ALP [Catalytic activity/Vol] 63 U/L Normal 46-116 [facility] Comment on above: Performed By: #### A 1C #### [facility] [address] [place] [address] Dr. David Magana ALT [Catalytic activity/Vol] 34 U/L Normal 16-63 [facility] Comment on above: Performed By: #### A 1C #### [facility] [address] [place] [address] Dr. David Magana Anion gap [Moles/Vol] 20.9 mmol/L Normal [facility] Comment on above: Performed By: #### A 1C #### [facility] [address] [address] [address] David Magana AST [Catalytic activity/Vol] 18 U/L Normal 15-37 [facility] Comment on above: Performed By: #### A 1C #### [facility] [address] [address] [address] David Magana Bilirubin [Mass/Vol] 0.5 mg/dL Normal 0.2-1.0 [facility] Comment on above: Performed By: #### A 1C #### [facility] [address] [address] [address] David Magana Calcium [Mass/Vol] 8.5 mg/dL Normal 8.5-10.1 [facility] Comment on above: Performed By: #### A 1C #### [facility] [address] [address] [address] David Magana Chloride [Moles/Vol] 99 mmol/L Normal 98-107 [facility] Comment on above: Performed By: #### A 1C #### [facility] [address] [address] [address] David Magana CO2 [Moles/Vol] 19.1 mmol/L Critically low 21.0-32.0 [facility] Comment on above: Performed By: #### A 1C #### [facility] [address] [address] [address] David Magana Creatinine [Mass/Vol] 1.80 mg/dL Critically high 0.70-1.30 [facility] Comment on above: Performed By: #### A 1C #### [facility] [address] [address] [address] David Magana EGFR-AF STATELESS 44 mL/min/1.73m2 Critically low >=60 [facility] Comment on above: Performed By: #### A 1C #### [facility] [address] [address] [address] David Magana EGFR-NON AF STATELESS 36 mL/min/1.73m2 Critically low >=60 [facility] Comment on above: Performed By: #### A 1C #### [facility] [address] [address] [address] David Magana Globulin (S) [Mass/Vol] 3.2 g/dL Normal [facility] Comment on above: Performed By: #### A 1C #### [facility] [address] [address] [address] David Magana Glucose [Mass/Vol] 287 mg/dL Critically high 74-106 [facility] Comment on above: Performed By: #### A 1C #### [facility] [address] [address] [address] David Magana Potassium [Moles/Vol] 5.0 mmol/L Normal 3.5-5.1 [facility] Comment on above: Performed By: #### A 1C #### [facility] [address] [address] [address] David Magana Protein [Mass/Vol] 6.6 g/dL Normal 6.4-8.2 [facility] Comment on above: Performed By: #### A 1C #### [facility] [address] [address] [address] David Magana Sodium [Moles/Vol] 134 mmol/L Critically low 136-145 [facility] Comment on above: Performed By: #### A 1C #### [facility] [address] [address] [address] David Magana Urea nitrogen [Mass/Vol] 51.0 mg/dL Critically high 7.0-18.0 [facility] Comment on above: Performed By: #### A 1C #### [facility] [address] [address] [address] David Magana Urea nitrogen/Creatinine [Mass ratio] 28.3 mg/mg [facility] Comment on above: Performed By: #### A 1C #### [facility] [address] [address] [address] David Magana BLOOD GASES BTYon 07-18-2022 02 MODE NASAL CANNULA Normal [facility] Comment on above: Performed By: #### A 1C #### [facility] [address] [address] [address] David Magana ALLENS TEST Positive Normal [facility] Comment on above: Performed By: #### A 1C #### [facility] [address] [address] [address] David Magana Base excess Calc (Bld) [Moles/Vol] -9.0000 mmol/L Critically low -2.0-2.0 [facility] Comment on above: Performed By: #### A 1C #### [facility] [address] [place] [address] Dr. David Magana BIPAP PRESSURE [facility] Comment on above: Performed By: #### A 1C #### [facility] [address] [address] [address] David Magana CPAP [facility] Comment on above: Performed By: #### A 1C #### [facility] [address] [place] [address] Dr. David Magana FIO2 [facility] Comment on above: Performed By: #### A 1C #### [facility] [address] [address] [address] David Magana HCO3 (Bld) [Moles/Vol] 18.4 mmol/L Critically low 22.0-26.0 [facility] Comment on above: Performed By: #### A 1C #### [facility] [address] [place] [address] Dr. David Magana LPM 1.5 Normal [facility] Comment on above: Performed By: #### A 1C #### [facility] [address] [address] [address] David Magana MINUTE VOLUME Normal [facility] Comment on above: Performed By: #### A 1C #### [facility] [address] [place] [address] Dr. David Magana Oxygen (Bld) [Partial pressure] 69.5 mm[Hg] Critically low 80.0-100.0 [facility] Comment on above: Performed By: #### A 1C #### [facility] [address] [address] [address] David Magana Oxygen saturation in Blood 94.2 % Critically low 95.0-100.0 [facility] Comment on above: Performed By: #### A 1C #### [facility] [address] [place] [address] Dr. David Magana PCO2 29.6 mmHg Critically low 35.0-45.[address] [facility] Comment on above: Performed By: #### A 1C #### [facility] [address] [address] [address] David Magana [facility] Comment on above: Performed By: #### A 1C #### [facility] [address] [place] [address] Dr. David Magana pH (Bld) 7.355 [pH] Normal 7.350-7.450 [facility] Comment on above: Performed By: #### A 1C #### [facility] [address] [place] [address] Dr. David Magana [facility] Comment on above: Performed By: #### A 1C #### [facility] [address] [place] [address] Dr. David Magana [facility] Comment on above: Performed By: #### A 1C #### [facility] [address] [place] [address] Dr. David Magana PUNCTURE SITE LR [facility] Comment on above: Performed By: #### A 1C #### [facility] [address] [place] [address] Dr. David Magana [facility] Comment on above: Performed By: #### A 1C #### [facility] [address] [place] [address] Dr. David Magana VENT [facility] Comment on above: Performed By: #### A 1C #### [facility] [address] [place] [address] [facility] Comment on above: Performed By: #### A 1C #### [facility] [address] [place], [place] [id number] Dr. David Magana BNPon 07-18-2022 Natriuretic peptide B (Bld) [Mass/Vol] 7047.0 pg/mL Critically high <=1,800.0 [facility] Comment on above: Performed By: #### C VDTBH #### [facility] [address] [place] [address] Dr. David Magana CARDIAC BARRIE 3-6on 2 CK [Catalytic activity/Vol] 396 U/L Critically high 39-308 [facility] Comment on above: Performed By: #### M G, BMP, PHOS #### [facility] [address] [place] [address] Dr. David Magana CK.MB [Mass/Vol] 2.94 ng/mL Normal <=3.60 [facility] Comment on above: Performed By: #### M G, BMP, PHOS #### [facility] [address] [place] [address] Dr. David Magana HSTROP 11.1 pg/mL Normal 4.0-76.1 [facility] Comment on above: Result Comment: CUT- OFF POINTS HAVE BEEN ESTABLISHED BASED ON THE FOURTH UNIVERSAL DEFINITIONS OF MYOCARDIAL INFARCTION. THE UPPER REFERENCE LIMIT (URL) OF TROPONIN, DEFINED THE 99TH PERCENTILE OF cTnI DISTRIBUTION IN A REFERENCE POPULATION, HAS BEEN CONFIRMED THE DECISION THRESHOLD FOR [place] DIAGNOSIS. Performed By: #### M G, BMP, PHOS #### [facility] [address] [place] [address] Dr. David Magana CK [Catalytic activity/Vol] 58 U/L Normal 39-308 [facility] Comment on above: Performed By: #### M G, BMP, PHOS #### [facility] [address] [place] [address] Dr. David Magana CK.MB [Mass/Vol] 1.71 ng/mL Normal <=3.60 [facility] Comment on above: Performed By: #### M G, BMP, PHOS #### [facility] [address] [place] [address] Dr. David Magana HSTROP 10.6 pg/mL Normal 4.0-76.1 [facility] Comment on above: Result Comment: CUT- OFF POINTS HAVE BEEN ESTABLISHED BASED ON THE FOURTH UNIVERSAL DEFINITIONS OF MYOCARDIAL INFARCTION. THE UPPER REFERENCE LIMIT (URL) OF TROPONIN, DEFINED THE 99TH PERCENTILE OF cTnI DISTRIBUTION IN A REFERENCE POPULATION, HAS BEEN CONFIRMED THE DECISION THRESHOLD FOR [place] DIAGNOSIS. Performed By: #### M ERICK Faith, PHOS #### [facility] [address] [place] [address] Dr. David Magana CBC AUTO DIFFon 07-18-2022 BASO # 0.0 103/ul Normal 0.0-0.1 [facility] Comment on above: Performed By: #### M ERICK Faith, PHOS #### [facility] [address] [place] [address] Dr. David Magana Basophils/100 WBC (Bld) 0.2 % Normal 0.2-2.0 [facility] Comment on above: Performed By: #### ERICK Jacques, PHOS #### [facility] [address] [place] [address] Dr. David Magana EO # 0.0 103/ul Normal 0.0-0.7 [facility] Comment on above: Performed By: #### ERICK Jacques, PHOS #### [facility] [address] [place] [address] Dr. David Magana Eosinophils/100 WBC (Bld) 0.2 % Critically low 0.9-7.0 [facility] Comment on above: Performed By: #### ERICK Jacques, PHOS #### [facility] [address] [place] [address] Dr. David Magana Erythrocyte distribution width (RBC) [Ratio] 13.2 % Normal 11.0-15.0 [facility] Comment on above: Performed By: #### M ERICK Faith, PHOS #### [facility] [address] [place] [address] Dr. David Magana Hematocrit (Bld) [Volume fraction] 43.8 % Normal 42.0-54.0 [facility] Comment on above: Performed By: #### ERICK Jacques, PHOS #### [facility] [address] [address] [address] David Magana Hemoglobin (Bld) [Mass/Vol] 14.5 g/dL Normal 14.0-18.0 [facility] Comment on above: Performed By: #### M G, BMP, PHOS #### [facility] [address] [address] [address] David Magana IG # 0.15 10e3/ul Critically high 0.00-0.03 [facility] Comment on above: Performed By: #### M G, BMP, PHOS #### [facility] [address] [place] [address] Dr. David Magana IG % 1.3 % Critically high 0.0-0.5 [facility] Comment on above: Performed By: #### M G, BMP, PHOS #### [facility] [address] [place] [address] Dr. David Magana LYMPH # 0.5 103/ul Critically low 1.2-3.[address] [facility] Comment on above: Performed By: #### M G, BMP, PHOS #### [facility] [address] [place] [address] Dr. David Magana Lymphocytes/100 WBC (Bld) 3.8 % Critically low 20.5-60.0 [facility] Comment on above: Performed By: #### M G, BMP, PHOS #### [facility] [address] [place] [address] Dr. David Magana MANUAL DIFF REQ NO Normal [facility] Comment on above: Performed By: #### M G, BMP, PHOS #### [facility] [address] [place] [address] Dr. David Magana MCH (RBC) [Entitic mass] 32.7 pg Normal 25.9-34.0 [facility] Comment on above: Performed By: #### M G, BMP, PHOS #### [facility] [address] [place] [address] Dr. David Magana MCHC (RBC) [Mass/Vol] 33.1 g/dL Normal 29.9-35.2 [facility] Comment on above: Performed By: #### M ERICK Faith, PHOS #### [facility] [address] [place] [address] Dr. David Magaan MCV (RBC) [Entitic vol] 98.9 fL Critically high 80.0-94.0 [facility] Comment on above: Performed By: #### ERICK Jacques, PHOS #### [facility] [address] [place] [address] Dr. David Magana MONO # 0.7 103/ul Normal 0.3-0.8 [facility] Comment on above: Performed By: #### ERICK Jacques, PHOS #### [facility] [address] [place] [address] Dr. David Magana Monocytes/100 WBC (Bld) 5.7 % Normal 1.7-12.0 [facility] Comment on above: Performed By: #### ERICK Jacques, PHOS #### [facility] [address] [place] [address] Dr. David Magana NEUT # 10.4 103/ul Critically high 1.4-6.5 [facility] Comment on above: Performed By: #### ERICK Jacques, PHOS #### [facility] [address] [place] [address] Dr. David Magana Neutrophils/100 WBC (Bld) 88.8 % Critically high 43.0-75.0 [facility] Comment on above: Performed By: #### ERICK Jacques, PHOS #### [facility] [address] [place] [address] Dr. David Magana Platelet mean volume (Bld) [Entitic vol] 11.0 fL Normal 9.5-13.5 [facility] Comment on above: Performed By: #### ERICK Jacques, PHOS #### [facility] [address] [place] [address] Dr. David Magana PLT 198 103/ul Normal 150-450 [facility] Comment on above: Performed By: #### ERICK Jacques, PHOS #### [facility] [address] [place], [place] [address] Dr. David Magana RBC 4.43 106/ul Critically low 4.70-6.[address] [facility] Comment on above: Performed By: #### M ERICK Faith, PHOS #### [facility] [address] [place], [place] [address] Dr. David Magana WBC 11.8 103/ul Critically high 4.0-11.0 [facility] Comment on above: Performed By: #### M ERICK Faith, PHOS #### [facility] [address] [place], [place] [address] HEAD WO CONon [...] FRANCISCO ZELAYA Date: 2022-07-18 05:12 Normal [facility] Covid-19 PCR (CVDTBH)on SARS-CoV-2 (COVID-19) RNA SULTANA+probe Ql (Unsp spec) Detected Critically abnormal NOT DETECTED [facility] Comment on above: Result Comment: This test is not yet approved or cleared by the [place] FDA. When there are no FDA-approved or cleared tests available, and other criteria are met, FDA can make tests available under an emergency access mechanism called an Emergency Use Authorization (EUA). The EUA for this test is supported by the Radiology Receptionist of Health and Human Service's declaration that [...] used). Performed By: #### C VDTBH #### [facility] [address] [place] [address] Dr. David Magana D-DIMERon 07-18-2022 D-DIMER 1.69 mg/L FEU Critically high <=0.59 [facility] Comment on above: Performed By: #### C BC #### [facility] [address] [place] [address] Dr. David Magana D-DIMER COMMENTS SEE BELOW Normal [facility] Comment on above: Result Comment: Incr [...] hospitalization. Performed By: #### C BC #### [facility] [address] [place] [address] Dr. David Magana POINT OF CARE GLUCOSEon Glucose [Mass/Vol] 329 mg/dL Critically high 74-106 [facility] Comment on above: Performed By: #### P OCGLUC #### [facility] [address] [place] [address] Dr. David Magana Glucose [Mass/Vol] 354 mg/dL Critically high 74-106 [facility] Comment on above: Performed By: #### P OCGLUC #### [facility] [address] [place] [address] Dr. David Magana PROF 14(COMP METB)on 022 Albumin [Mass/Vol] 3.6 g/dL Normal 3.4-5.0 [facility] Comment on above: Performed By: #### C VDTBH #### [facility] [address] [address] [address] David Magana Albumin/Globulin [Mass ratio] 1.1 {ratio} Normal [facility] Comment on above: Performed By: #### C VDTBH #### [facility] [address] [address] [address] David Magana ALP [Catalytic activity/Vol] 67 U/L Normal 46-116 [facility] Comment on above: Performed By: #### C VDTBH #### [facility] [address] [address] [address] David Magana ALT [Catalytic activity/Vol] 33 U/L Normal 16-63 [facility] Comment on above: Performed By: #### C VDTBH #### [facility] [address] [place] [address] Dr. David Magana Anion gap [Moles/Vol] 23.5 mmol/L Normal [facility] Comment on above: Performed By: #### C VDTBH #### [facility] [address] [place] [address] Dr. David Magana AST [Catalytic activity/Vol] 13 U/L Critically low 15-37 [facility] Comment on above: Performed By: #### C VDTBH #### [facility] [address] [place] [address] Dr. David Magana Bilirubin [Mass/Vol] 0.6 mg/dL Normal 0.2-1.0 [facility] Comment on above: Performed By: #### C VDTBH #### [facility] [address] [place] [address] Dr. David Magana Calcium [Mass/Vol] 8.4 mg/dL Critically low 8.5-10.1 [facility] Comment on above: Performed By: #### C VDTBH #### [facility] [address] [place] [address] Dr. David Magana Chloride [Moles/Vol] 93 mmol/L Critically low 98-107 [facility] Comment on above: Performed By: #### C VDTBH #### [facility] [address] [address] [address] David Magana CO2 [Moles/Vol] 17.9 mmol/L Critically low 21.0-32.0 [facility] Comment on above: Performed By: #### C VDTBH #### [facility] [address] [address] [address] David Magana Creatinine [Mass/Vol] 2.15 mg/dL Critically high 0.70-1.30 [facility] Comment on above: Performed By: #### C VDTBH #### [facility] [address] [place] [address] Dr. David Magana EGFR-AF STATELESS 36 mL/min/1.73m2 Critically low >=60 [facility] Comment on above: Performed By: #### C VDTBH #### [facility] [address] [place] [address] Dr. David Magana EGFR-NON AF STATELESS 30 mL/min/1.73m2 Critically low >=60 [facility] Comment on above: Performed By: #### C VDTBH #### [facility] [address] [place] [address] Dr. David Magana Globulin (S) [Mass/Vol] 3.2 g/dL Normal [facility] Comment on above: Performed By: #### C VDTBH #### [facility] [address] [place] [address] Dr. David Magana Glucose [Mass/Vol] 345 mg/dL Critically high 74-106 [facility] Comment on above: Performed By: #### C VDTBH #### [facility] [address] [place] [address] Dr. David Magana Potassium [Moles/Vol] 5.4 mmol/L Critically high 3.5-5.1 [facility] Comment on above: Performed By: #### C VDTBH #### [facility] [address] [place] [address] Dr. David Magana Performed By: #### K #### [facility] [address] [address] [address] David Magana Protein [Mass/Vol] 6.8 g/dL Normal 6.4-8.2 [facility] Comment on above: Performed By: #### C VDTBH #### [facility] [address] [place] [address] Dr. David Magana Sodium [Moles/Vol] 129 mmol/L Critically low 136-145 [facility] Comment on above: Performed By: #### C VDTBH #### [facility] Laboratory [address] [place] [address] Dr. David Magana Urea nitrogen [Mass/Vol] 65.0 mg/dL Critically high 7.0-18.0 [facility] Comment on above: Performed By: #### C VDTBH #### [facility] [address] [place] [address] Dr. David Magana Urea nitrogen/Creatinine [Mass ratio] 30.2 mg/mg Normal [facility] Comment on above: Performed By: #### C VDTBH #### [facility] [address] [place] [address] Dr. David Magana UA RANDOM W/MICROSCOPICon BACTERIA NONE SEEN Normal NONE SEEN [facility] Comment on above: Performed By: #### M Marcell BMP, PHOS #### [facility] [address] [place] [address] Dr. David Magana Bilirubin Ql (U) Negative Normal NEGATIVE [facility] Comment on above: Performed By: #### M G, BMP, PHOS #### [facility] [address] [place] [address] Dr. David Magana CAST NONE SEEN Normal NONE SEEN [facility] Comment on above: Performed By: #### M G, BMP, PHOS #### [facility] [address] [place] [address] Dr. David Magana Clarity (U) CLEAR Normal CLEAR [facility] Comment on above: Performed By: #### M G, BMP, PHOS #### [facility] [address] [place] [address] Dr. David Magana Color (U) LT. YELLOW Normal YELLOW [facility] Comment on above: Performed By: #### M G, BMP, PHOS #### [facility] [address] [address] [address] David Magana Crystals LM Nom (Urine sed) NONE SEEN Normal NONE SEEN [facility] Comment on above: Performed By: #### M G, BMP, PHOS #### [facility] [address] [address] [address] David Magana Epithelial cells LM Ql (Urine sed) RARE Normal NONE SEEN /RARE [facility] Comment on above: Performed By: #### M G, BMP, PHOS #### [facility] [address] [address] [address] David Magana Glucose Ql (U) 1000 mg/dl Abnormal NEGATIVE [facility] Comment on above: Performed By: #### M G, BMP, PHOS #### [facility] [address] [place] [address] Dr. David Magana Hemoglobin Ql (U) Negative Normal NEGATIVE [facility] Comment on above: Performed By: #### M G, BMP, PHOS #### [facility] [address] [address] [address] David Magana Ketones Ql (U) 15 mg/dl Abnormal NEGATIVE [facility] Comment on above: Performed By: #### M G, BMP, PHOS #### [facility] [address] [address] [address] David Magana LEUKOCYTES Negative Normal NEGATIVE [facility] Comment on above: Performed By: #### M G, BMP, PHOS #### [facility] [address] [address] [address] David Magana MUCOUS NONE SEEN Normal NONE SEEN [facility] Comment on above: Performed By: #### M G, BMP, PHOS #### [facility] [address] [address] [address] David Magana Nitrite Ql (U) Negative Normal NEGATIVE [facility] Comment on above: Performed By: #### M G, BMP, PHOS #### [facility] [address] [address] [address] David Magana pH (U) 5.5 [pH] Normal 5-9 [facility] Comment on above: Performed By: #### Jim ERICK Faith, PHOS #### [facility] [address] [place] [address] Dr. David Magana RBC NONE SEEN Abnormal 0-2 [facility] Comment on above: Performed By: #### M ERICK Faith, PHOS #### [facility] [address] [address] [address] David Magana SPEC GRAVITY <=1.005 Abnormal 1.005-<=1.02 5 [facility] Comment on above: Performed By: #### ERICK Jacques, PHOS #### [facility] [address] [place] [address] Dr. David Magana UA PROTEIN Negative Normal NEGATIVE/ TRACE [facility] Comment on above: Performed By: #### ERICK Jacques, PHOS #### [facility] [address] [place] [address] Dr. Dvaid Magana Urobilinogen Qn (U) 0.2 {Dionna'U}/dL Normal 0.2 - 1. 0 [facility] Comment on above: Performed By: #### ERICK Jacques, PHOS #### [facility] [address] [place] [address] Dr. David Magana WBC NONE SEEN Normal NONE SEEN [facility] Comment on above: Performed By: #### ERICK Jacques, PHOS #### [facility] [address] [place] [address] Dr. David Magana XR CHEST 1 Von [...] Yefri DWYER Date: 2022-07-18 00:09 Normal [facility] CARDIAC BARRIE ADMITon 022 CK [Catalytic activity/Vol] 61 U/L Normal 39-308 [facility] Comment on above: Performed By: #### C BC #### [facility] [address] [address] [address] David Magana CK.MB [Mass/Vol] 1.84 ng/mL Normal <=3.60 [facility] Comment on above: Performed By: #### C BC #### [facility] [address] [address] [address] David Magana HSTROP 9.4 pg/mL Normal 4.0-76.1 [facility] Comment on above: Result Comment: CUT- OFF POINTS HAVE BEEN ESTABLISHED BASED ON THE FOURTH UNIVERSAL DEFINITIONS OF MYOCARDIAL INFARCTION. THE UPPER REFERENCE LIMIT (URL) OF TROPONIN, DEFINED THE 99TH PERCENTILE OF cTnI DISTRIBUTION IN A REFERENCE POPULATION, HAS BEEN CONFIRMED THE DECISION THRESHOLD FOR [place] DIAGNOSIS. Performed By: #### C BC #### [facility] [address] [address] [address] David Magana DUSTIN 533 ng/mL Critically high 16-[address] [facility] Comment on above: Performed By: #### C BC #### [facility] [address] [address] [address] David Magana CBC AUTO DIFFon 07-17-2022 BASO # 0.0 103/ul Normal 0.0-0.1 [facility] Comment on above: Performed By: #### M ERICK Faith, PHOS #### [facility] [address] [address] [address] David Magana Basophils/100 WBC (Bld) 0.2 % Normal 0.2-2.0 [facility] Comment on above: Performed By: #### ERICK Jacques, PHOS #### [facility] [address] [address] [address] David Magana EO # 0.0 103/ul Normal 0.0-0.7 [facility] Comment on above: Performed By: #### ERICK Jacques, PHOS #### [facility] [address] [place] [address] Dr. David Magana Eosinophils/100 WBC (Bld) 0.1 % Critically low 0.9-7.0 [facility] Comment on above: Performed By: #### M G, BMP, PHOS #### [facility] [address] [place] [address] Dr. David Magana Erythrocyte distribution width (RBC) [Ratio] 13.2 % Normal 11.0-15.0 [facility] Comment on above: Performed By: #### M G, BMP, PHOS #### [facility] [address] [place] [address] Dr. David Magana Hematocrit (Bld) [Volume fraction] 43.1 % Normal 42.0-54.0 [facility] Comment on above: Performed By: #### M Marcell BMP, PHOS #### [facility] [address] [place] [address] Dr. David Mgaana Hemoglobin (Bld) [Mass/Vol] 14.5 g/dL Normal 14.0-18.0 [facility] Comment on above: Performed By: #### M Marcell BMP, PHOS #### [facility] [address] [place] [address] Dr. David Magana IG # 0.14 10e3/ul Critically high 0.00-0.03 [facility] Comment on above: Performed By: #### M G BMP, PHOS #### [facility] [address] [place] [address] Dr. David Magana IG % 1.2 % Critically high 0.0-0.5 [facility] Comment on above: Performed By: #### M G, BMP, PHOS #### [facility] [address] [place] [address] Dr. David Magana LYMPH # 0.4 103/ul Critically low 1.2-3.[address] [facility] Comment on above: Performed By: #### M G, BMP, PHOS #### [facility] [address] [place] [address] Dr. David Magana Lymphocytes/100 WBC (Bld) 3.4 % Critically low 20.5-60.0 [facility] Comment on above: Performed By: #### M ERICK Faith, PHOS #### [facility] [address] [place] [address] Dr. David Magana MANUAL DIFF REQ NO Normal [facility] Comment on above: Performed By: #### ERICK Jacques, PHOS #### [facility] [address] [place] [address] Dr. David Magana MCH (RBC) [Entitic mass] 33.3 pg Normal 25.9-34.0 [facility] Comment on above: Performed By: #### ERICK Jacques, PHOS #### [facility] [address] [place] [address] Dr. David Magana MCHC (RBC) [Mass/Vol] 33.6 g/dL Normal 29.9-35.2 [facility] Comment on above: Performed By: #### ERICK Jacques, PHOS #### [facility] [address] [place] [address] Dr. David Magana MCV (RBC) [Entitic vol] 98.9 fL Critically high 80.0-94.0 [facility] Comment on above: Performed By: #### ERICK Jacques, PHOS #### [facility] [address] [place] [address] Dr. David Magana MONO # 1.1 103/ul Critically high 0.3-0.[address] [facility] Comment on above: Performed By: #### ERICK Jacques, PHOS #### [facility] [address] [place] [address] Dr. David Magana Monocytes/100 WBC (Bld) 8.9 % Normal 1.7-12.0 [facility] Comment on above: Performed By: #### ERICK Jacques, PHOS #### [facility] [address] [place] [address] Dr. David Magana NEUT # 10.3 103/ul Critically high 1.4-6.5 [facility] Comment on above: Performed By: #### M G, BMP, PHOS #### [facility] [address] [place] [address] Dr. David Magana Neutrophils/100 WBC (Bld) 86.2 % Critically high 43.0-75.0 [facility] Comment on above: Performed By: #### M Marcell, BMP, PHOS #### [facility] [address] [place] [address] Dr. David Magana Platelet mean volume (Bld) [Entitic vol] 11.1 fL Normal 9.5-13.5 [facility] Comment on above: Performed By: #### M Marcell, BMP, PHOS #### [facility] [address] [place] [address] Dr. David Magana PLT 229 103/ul Normal 150-450 [facility] Comment on above: Performed By: #### M Marcell BMP, PHOS #### [facility] [address] [place] [address] Dr. David Magana RBC 4.36 106/ul Critically low 4.70-6.10 [facility] Comment on above: Performed By: #### M ERICK Faith, PHOS #### [facility] [address] [place] [address] Dr. David Magana WBC 11.9 103/ul Critically high 4.0-11.0 [facility] Comment on above: Performed By: #### M ERICK Faith, PHOS #### [facility] [address] [place] [address] Dr. David Magana PROF CHEM 8 (BAS METB)on Anion gap [Moles/Vol] 26.5 mmol/L Normal [facility] Comment on above: Performed By: #### C BC #### [facility] [address] [place] [address] Dr. David Magana Calcium [Mass/Vol] 8.2 mg/dL Critically low 8.5-10.1 [facility] Comment on above: Performed By: #### C BC #### [facility] [address] [place] [address] Dr. David Magana Chloride [Moles/Vol] 89 mmol/L Critically low 98-107 [facility] Comment on above: Performed By: #### C BC #### [facility] [address] [address] [address] David Magana CO2 [Moles/Vol] 14.5 mmol/L Critically low 21.0-32.0 [facility] Comment on above: Performed By: #### C BC #### [facility] [address] [address] [address] David Magana Creatinine [Mass/Vol] 2.78 mg/dL Critically high 0.70-1.30 [facility] Comment on above: Performed By: #### C BC #### [facility] [address] [place] [address] Dr. David Magana EGFR-AF STATELESS 27 mL/min/1.73m2 Critically low >=60 [facility] Comment on above: Performed By: #### C BC #### [facility] [address] [place] [address] Dr. David Magana EGFR-NON AF STATELESS 22 mL/min/1.73m2 Critically low >=60 [facility] Comment on above: Performed By: #### C BC #### [facility] [address] [place] [address] Dr. David Magana Glucose [Mass/Vol] 442 mg/dL Critically high 74-106 [facility] Comment on above: Performed By: #### C BC #### [facility] [address] [place] [address] Dr. David Magana Potassium [Moles/Vol] 6.0 mmol/L Critically high 3.5-5.1 [facility] Comment on above: Performed By: #### C BC #### [facility] [address] [place] [address] Dr. David Magana Sodium [Moles/Vol] 124 mmol/L Critically low 136-145 [facility] Comment on above: Performed By: #### C BC #### [facility] [address] [place] [address] Dr. David Magana Urea nitrogen [Mass/Vol] 73.0 mg/dL Critically high 7.0-18.0 [facility] Comment on above: Performed By: #### C BC #### [facility] [address] [address] [address] David Magana Urea nitrogen/Creatinine [Mass ratio] 26.3 mg/mg Normal [facility] Comment on above: Performed By: #### C BC #### [facility] [address] [id number] [address] David Magana Cov[facility]-19 [facility]on 06-16 SARS-CoV-2 (COVID-19) RNA SULTANA+probe Ql (Unsp spec) Detected Critically abnormal NOT DETECTED [facility] Comment on above: Result Comment: This test is not yet approved or cleared by the [place] FDA. When there are no FDA-approved or cleared tests available, and other criteria are met, FDA can make tests available under an emergency access mechanism called an Emergency Use Authorization (EUA). The EUA for this test is supported by the Radiology Receptionist of Health and Human Service's (HHS's) declaration [...] By: #### M ERICK Faith PHOS #### [facility] [address] [place], [place] [id number] Dr. David Magana ECHOCARDIO M/2D COMPLETEon 0 07-01-2022 ECHOCARDIO M/2D COMPLETE Patient: NADIR BETH Exam Date: 07/01/2022 : 1940 Gender:M Ordering : DR CLARIBEL CISNEROS M.D. Admission #: [id number] Family : DR AVN YOUSSEF . Order #: [id number] CLICK HERE TO VIEW EXAM ECHOCARDIOGRAM REPORT [...] M.D. on 07/01/2022 at 16:27 Normal [facility] Covid-19 PCR (CVDTB)on SARS-CoV-2 (COVID-19) RNA SULTANA+probe Ql (Unsp spec) Not detected Normal NOT DETECTED [facility] Comment on above: Result Comment: When [...] for this test is supported by the Radiology Receptionist of Health and Human Service's declaration that [...] longer be used). Performed By: #### C [facility] #### [facility] [address] [place] [address] Dr. David Magana CREATININE URINEon URINE CREAT 14.70 mg/dL Critically low 20.00-300.00 [facility] Comment on above: Performed By: #### M ERICK Faith, PHOS #### [facility] [address] [place] [address] Dr. David Magana GLYCOHEMOGLOBIN A1Con 2021 ADA RECOMMENDATION SEE BELOW Normal [facility] Comment on above: Result Comment: ADA RECOMMENDED LIMIT 4.0 - 6.0 ADA THERAPEUTIC TARGET < 7.0 ACTION SUGGESTED > 7.0 Performed By: #### A 1C #### [facility] [address] [place] [address] Dr. David Magana Glucose [Mass/Vol] 209 mg/dL Normal [facility] Comment on above: Performed By: #### A 1C #### [facility] [address] [place] [address] Dr. David Magana HbA1c (Bld) [Mass fraction] 8.9 % Critically high 4.5-6.2 [facility] Comment on above: Performed By: #### A 1C #### [facility] [address] [place] [address] Dr. David Magana MAGNESIUMon 06-08-2022 Magnesium [Mass/Vol] 2.3 mg/dL Normal 1.8-2.4 [facility] Comment on above: Performed By: #### M ERICK Faith, PHOS #### [facility] [address] [place] [address] Dr. David Magana PHOSPHORUSon 06-08-2022 Phosphate [Mass/Vol] 3.5 mg/dL Normal 2.6-4.7 [facility] Comment on above: Performed By: #### M ERICK Faith, PHOS #### [facility] [address] [place] [address] Dr. David Magana PROF CHEM 8 (BAS METB)on Anion gap [Moles/Vol] 10.6 mmol/L Normal [facility] Comment on above: Performed By: #### M Marcell BMP, PHOS #### [facility] [address] [address] [address] David Magana Calcium [Mass/Vol] 9.2 mg/dL Normal 8.5-10.1 [facility] Comment on above: Performed By: #### M Marcell, BMP, PHOS #### [facility] [address] [address] [address] David Magana Chloride [Moles/Vol] 102 mmol/L Normal 98-107 [facility] Comment on above: Performed By: #### M Marcell, BMP, PHOS #### [facility] [address] [place] [address] Dr. David Magana CO2 [Moles/Vol] 30.1 mmol/L Normal 21.0-32.0 [facility] Comment on above: Performed By: #### M Marcell BMP, PHOS #### [facility] [address] [place] [address] Dr. David Magana Creatinine [Mass/Vol] 1.70 mg/dL Critically high 0.70-1.30 [facility] Comment on above: Performed By: #### ERICK Jacques, PHOS #### [facility] [address] [place] [address] Dr. David Magana EGFR-AF STATELESS 47 mL/min/1.73m2 Critically low >=60 [facility] Comment on above: Performed By: #### Jim Faith BMP, PHOS #### [facility] [address] [place] [address] Dr. David Magana EGFR-NON AF STATELESS 39 mL/min/1.73m2 Critically low >=60 [facility] Comment on above: Performed By: #### M Marcell BMP, PHOS #### [facility] [address] [place] [address] Dr. David Magana Glucose [Mass/Vol] 197 mg/dL Critically high 74-106 [facility] Comment on above: Performed By: #### M Marcell BMP, PHOS #### [facility] [address] [place], [place] [id number] Dr. David Magana Potassium [Moles/Vol] 4.7 mmol/L Normal 3.5-5.1 [facility] Comment on above: Performed By: #### M ERICK Faith, PHOS #### [facility] [address] [place] [address] Dr. David Magana Sodium [Moles/Vol] 138 mmol/L Normal 136-145 [facility] Comment on above: Performed By: #### M ERICK Faith, PHOS #### [facility] [address] [place] [address] Dr. David Magana Urea nitrogen [Mass/Vol] 25.0 mg/dL Critically high 7.0-18.0 [facility] Comment on above: Performed By: #### ERICK Jacques, PHOS #### [facility] [address] [place] [address] Dr. David Magana Urea nitrogen/Creatinine [Mass ratio] 14.7 mg/mg Normal [facility] Comment on above: Performed By: #### M ERICK Faith, PHOS #### [facility] [address] [place] [address] Dr. David Magana PROTEIN RAND URINEon 022 UR PROT <5.0 Normal <=11.9 [facility] Comment on above: Performed By: #### C REAU, PROTU #### [facility] [address] [place] [address] Dr. David Magana BILIRUBIN CONJUGATED (DIRECT )on 04-28-2022 BILI, CONJUGATED 0.1 mg/dL Normal 0.0-0.2 [facility] Comment on above: Performed By: #### P OCGLUC #### [facility] [address] [place] [address] Dr. David Magana CBC AUTO DIFFon 04-28-2022 BASO # 0.1 103/ul Normal 0.0-0.1 [facility] Comment on above: Performed By: #### C VDTBH #### [facility] [address] [place] [address] Dr. David Magana Basophils/100 WBC (Bld) 0.7 % Normal 0.2-2.0 [facility] Comment on above: Performed By: #### C VDTBH #### [facility] [address] [place] [address] Dr. David Magana EO # 0.5 103/ul Normal 0.0-0.7 [facility] Comment on above: Performed By: #### C VDTBH #### [facility] [address] [place] [address] Dr. David Magana Eosinophils/100 WBC (Bld) 6.7 % Normal 0.9-7.0 [facility] Comment on above: Performed By: #### C VDTBH #### [facility] [address] [place] [address] Dr. David Magana Erythrocyte distribution width (RBC) [Ratio] 13.6 % Normal 11.0-15.0 [facility] Comment on above: Performed By: #### C VDTBH #### [facility] [address] [place] [address] Dr. David Magana Hematocrit (Bld) [Volume fraction] 45.9 % Normal 42.0-54.0 [facility] Comment on above: Performed By: #### C VDTBH #### [facility] [address] [place] [address] Dr. David Magana Hemoglobin (Bld) [Mass/Vol] 14.9 g/dL Normal 14.0-18.0 [facility] Comment on above: Performed By: #### C VDTBH #### [facility] [address] [place] [address] Dr. David Magana IG # 0.03 10e3/ul Normal 0.00-0.03 [facility] Comment on above: Performed By: #### C VDTBH #### [facility] [address] [place] [address] Dr. David Magana IG % 0.4 % Normal 0.0-0.5 [facility] Comment on above: Performed By: #### C VDTBH #### [facility] [address] [place] [address] Dr. David Magana LYMPH # 1.0 103/ul Critically low 1.2-3.8 [facility] Comment on above: Performed By: #### C VDTBH #### [facility] [address] [place] [address] Dr. David Magana Lymphocytes/100 WBC (Bld) 13.4 % Critically low 20.5-60.0 [facility] Comment on above: Performed By: #### C VDTBH #### [facility] [address] [place] [address] Dr. David Magana MANUAL DIFF REQ NO Normal [facility] Comment on above: Performed By: #### C VDTBH #### [facility] [address] [place] [address] Dr. David Magana MCH (RBC) [Entitic mass] 33.8 pg Normal 25.9-34.0 [facility] Comment on above: Performed By: #### C VDTBH #### [facility] [address] [place] [address] Dr. David Magana MCHC (RBC) [Mass/Vol] 32.5 g/dL Normal 29.9-35.2 [facility] Comment on above: Performed By: #### C VDTBH #### [facility] [address] [place] [address] Dr. David Magana MCV (RBC) [Entitic vol] 104.1 fL Critically high 80.0-94.0 [facility] Comment on above: Performed By: #### C VDTBH #### [facility] [address] [place] [address] Dr. David Magana MONO # 0.8 103/ul Normal 0.3-0.8 [facility] Comment on above: Performed By: #### C VDTBH #### [facility] [address] [place] [address] Dr. David Magana Monocytes/100 WBC (Bld) 10.2 % Normal 1.7-12.0 [facility] Comment on above: Performed By: #### C VDTBH #### [facility] [address] [address] [address] David Magana NEUT # 5.1 103/ul Normal 1.4-6.5 [facility] Comment on above: Performed By: #### C VDTBH #### [facility] [address] [address] [address] David Magana Neutrophils/100 WBC (Bld) 68.6 % Normal 43.0-75.0 [facility] Comment on above: Performed By: #### C VDTBH #### [facility] [address] [place] [address] Dr. David Magana Platelet mean volume (Bld) [Entitic vol] 11.3 fL Normal 9.5-13.5 [facility] Comment on above: Performed By: #### C VDTBH #### [facility] [address] [place] [address] Dr. David Magana PLT 185 103/ul Normal 150-450 [facility] Comment on above: Performed By: #### C VDTBH #### [facility] [address] [place] [address] Dr. David Magana RBC 4.41 106/ul Critically low 4.70-6.[address] [facility] Comment on above: Performed By: #### C VDTBH #### [facility] [address] [place] [address] Dr. David Magana WBC 7.5 103/ul Normal 4.0-11.0 [facility] Comment on above: Performed By: #### C VDTBH #### [facility] [address] [place] [address] Dr. David Magana FREE T3on 04-28-2022 FREE T3 2.17 pg/mlL Critically low 2.18-3.[address] [facility] Comment on above: Performed By: #### P OCGLUC #### [facility] [address] [place] [address] Dr. David Magana LIPID PROFILEon 04-28-2022 CHOL-HDL RATIO NORM SEE BELOW Normal [facility] Health Comment on above: Result Comment: 3.3 - 4.4 LOW RISK 4.4 - 7.1 AVERAGE RISK 7.1 - 11.0 MODERATE RISK >11.0 HIGH RISK Performed By: #### P OCGLUC #### [facility] [address] [address] [address] David Magana Cholesterol [Mass/Vol] 234 mg/dL Critically high <=200 [facility] Comment on above: Performed By: #### P OCGLUC #### [facility] [address] [address] [address] David Magana Cholesterol in HDL [Mass/Vol] 58 mg/dL Normal 40-60 [facility] Comment on above: Performed By: #### P OCGLUC #### [facility] [address] [address] [address] David Magana Cholesterol in LDL [Mass/Vol] 129.0 mg/dL Normal [facility] Comment on above: Performed By: #### P OCGLUC #### [facility] [address] [place] [address] Dr. David Magana Cholesterol.total/Cho lesterol in HDL [Mass ratio] 4.0 {ratio} Normal [facility] Comment on above: Performed By: #### P OCGLUC #### [facility] [address] [address] [address] David Magana HDL NORMAL > or = 60 mg/dl - LO W CARDIOVASCULAR RISK <40 mg/dl - HIGH CARDIOVASCULAR RISK Normal [facility] Comment on above: Performed By: #### P OCGLUC #### [facility] [address] [address] [address] David Magana LDL CALC NORMAL SEE BELOW Normal [facility] Comment on above: Result Comment: <100 mg/dl OPTIMAL 100 - 129 mg/dl NEAR OR ABOVE OPTIMAL 130 - 159 mg/dl BORDERLINE HIGH 160 - 189 mg/dl HIGH >190 mg/dl VERY HIGH Performed By: #### P OCGLUC #### [facility] [address] [place] [address] Dr. David Magana Triglyceride [Mass/Vol] 235 mg/dL Critically high <=150 [facility] Comment on above: Performed By: #### P OCGLUC #### [facility] [address] [address] [address] David Magana VLDL CALC 47.0 mg/dL Normal [facility] Comment on above: Performed By: #### P OCGLUC #### [facility] [address] [place] [address] Dr. David Magana PROF 14(COMP METB)on 022 Albumin [Mass/Vol] 3.2 g/dL Critically low 3.4-5.0 [facility] Comment on above: Performed By: #### P OCGLUC #### [facility] [address] [place] [address] Dr. David Magana Albumin/Globulin [Mass ratio] 0.9 {ratio} Normal [facility] Comment on above: Performed By: #### P OCGLUC #### [facility] [address] [place] [address] Dr. David Magana ALP [Catalytic activity/Vol] 77 U/L Normal 46-116 [facility] Comment on above: Performed By: #### P OCGLUC #### [facility] [address] [place] [address] Dr. David Magana ALT [Catalytic activity/Vol] 24 U/L Normal 16-63 [facility] Comment on above: Performed By: #### P OCGLUC #### [facility] [address] [place] [address] Dr. David aMgana Anion gap [Moles/Vol] 13.1 mmol/L Normal [facility] Comment on above: Performed By: #### P OCGLUC #### [facility] [address] [place] [address] Dr. David Magana AST [Catalytic activity/Vol] 13 U/L Critically low 15-37 [facility] Comment on above: Performed By: #### P OCGLUC #### [facility] [address] [place] [address] Dr. David Magana Bilirubin [Mass/Vol] 0.3 mg/dL Normal 0.2-1.0 [facility] Comment on above: Performed By: #### P OCGLUC #### [facility] [address] [place] [address] Dr. David Magana Calcium [Mass/Vol] 8.8 mg/dL Normal 8.5-10.1 [facility] Comment on above: Performed By: #### P OCGLUC #### [facility] [address] [address] [address] David Magana Chloride [Moles/Vol] 106 mmol/L Normal 98-107 [facility] Comment on above: Performed By: #### P OCGLUC #### [facility] [address] [address] [address] David Magana CO2 [Moles/Vol] 27.5 mmol/L Normal 21.0-32.0 [facility] Comment on above: Performed By: #### P OCGLUC #### [facility] [address] [place] [address] Dr. David Magana Creatinine [Mass/Vol] 1.62 mg/dL Critically high 0.70-1.30 [facility] Comment on above: Performed By: #### P OCGLUC #### [facility] [address] [address] [address] David Magana EGFR-AF STATELESS 50 mL/min/1.73m2 Critically low >=60 [facility] Comment on above: Performed By: #### P OCGLUC #### [facility] [address] [place] [address] Dr. David Magana EGFR-NON AF STATELESS 41 mL/min/1.73m2 Critically low >=60 [facility] Comment on above: Performed By: #### P OCGLUC #### [facility] [address] [address] [address] David Magana Globulin (S) [Mass/Vol] 3.4 g/dL Normal [facility] Comment on above: Performed By: #### P OCGLUC #### [facility] [address] [address] [address] David Magana Glucose [Mass/Vol] 206 mg/dL Critically high 74-106 [facility] Comment on above: Performed By: #### P OCGLUC #### [facility] [address] [address] [address] David Magana Potassium [Moles/Vol] 4.6 mmol/L Normal 3.5-5.1 [facility] Comment on above: Performed By: #### P OCGLUC #### [facility] [address] [address] [address] David Magana Protein [Mass/Vol] 6.6 g/dL Normal 6.4-8.2 [facility] Comment on above: Performed By: #### P OCGLUC #### [facility] [address] [address] [address] David Magana Sodium [Moles/Vol] 142 mmol/L Normal 136-145 [facility] Comment on above: Performed By: #### P OCGLUC #### [facility] [address] [place] [address] Dr. David Magana Urea nitrogen [Mass/Vol] 26.0 mg/dL Critically high 7.0-18.0 [facility] Comment on above: Performed By: #### P OCGLUC #### [facility] [address] [address] [address] David Magana Urea nitrogen/Creatinine [Mass ratio] 16.0 mg/mg Normal [facility] Comment on above: Performed By: #### P OCGLUC #### [facility] [address] [place] [address] Dr. David Magana T4on 04-28-2022 T4 [Mass/Vol] 7.70 ug/dL Normal 4.50-12.10 [facility] Comment on above: Performed By: #### P OCGLUC #### [facility] [address] [place] [address] Dr. David Magana TSHon 04-28-2022 TSH 2.187 uIU/mL Normal 0.358-3.740 [facility] Comment on above: Performed By: #### P OCGLUC #### [facility] [address] [place] [address] Dr. David Magana TSH RANGE SEE BELOW Normal [facility] Comment on above: Result Comment: <0.3 4 UIU/ml HYPERTHYROID 0.34-5.60 UIU/ml EUTHYROID >5.60 UIU/ml HYPOTHYROID Performed By: #### P OCGLUC #### [facility] [address] [place] [address] Dr. David Magana Vital Signs Date Time Vital Sign Value Performing Clinician Facility 05-08-2025 16:32-0400 Body height 182.9 cm Mony Herron ORTHOPEDIC CAST SPECIALIST Work Phone: [facility] 05-08-2025 16:32-0400 Body mass index (BMI) [Ratio] 25.09 kg/m2 Monyedwar Herron ORTHOPEDIC CAST SPECIALIST Work Phone: [facility] 05-08-2025 16:32-0400 Body weight 83.92 kg Mony Herron ORTHOPEDIC CAST SPECIALIST Work Phone: [facility] 04-12-2025 11:05-0400 Body height 182.9 cm Blaise Chicas DPM Work Phone: [facility] 04-12-2025 11:05-0400 Body mass index (BMI) [Ratio] 24.95 kg/m2 Blaise Chicas DPM Work Phone: [facility] 04-12-2025 11:05-0400 Body weight 83.46 kg Blaise Chicas DPM Work Phone: [facility] 04-12-2025 11:05-0400 Respiratory rate 16 /min Blaise Chicas DPM Work Phone: [facility] 04-10-2025 12:58-0400 Body height 182.9 cm Barrie Montoya MD Work Phone: [facility] 04-10-2025 12:58-0400 Body mass index (BMI) [Ratio] 24.95 kg/m2 Barrie Montoya MD Work Phone: [facility] 04-10-2025 12:58-0400 Body weight 83.46 kg Barrie Montoya MD Work Phone: [facility] 03-08-2025 08:56-0400 Body height 182.9 cm Blaise Chicas DPM Work Phone: [facility] 03-08-2025 08:56-0400 Body mass index (BMI) [Ratio] 39.2 kg/m2 Blaise Chicas DPM Work Phone: [facility] 03-08-2025 08:56-0400 Body weight 131.09 kg Blaise Chicas DPM Work Phone: [facility] 03-08-2025 08:56-0400 Respiratory rate 18 /min Blaise Chicas DPM Work Phone: [facility] 12-04-2024 08:44-0500 Diastolic blood pressure 90 mm[Hg] MARQUIS NKANSAH-AMANKRA [facility] 12-04-2024 08:44-0500 Heart rate 78 /min MARQUIS NKANSAH-AMANKRA [facility] 12-04-2024 08:44-0500 Systolic blood pressure 160 mm[Hg] MARQUIS NKANSAH-AMANKRA [facility] 11-30-2024 08:28-0500 Body height 182.9 cm Blaise Chicas DPM Work Phone: [facility] 11-30-2024 08:28-0500 Body mass index (BMI) [Ratio] 39.2 kg/m2 Blaise Chicas DPM Work Phone: [facility] 11-30-2024 08:28-0500 Body weight 131.09 kg Blaise Chicas DPM Work Phone: [facility] 11-30-2024 08:28-0500 Respiratory rate 16 /min Blaise Chicsa DPM Work Phone: [facility] 11-02-2024 08:09-0500 Blood Pressure Location MARQUIS NKANSAH-AMANKRA [facility] 11-02-2024 08:09-0500 Diastolic blood pressure 67 mm[Hg] MARQUIS NKANSAH-AMANKRA [facility] 11-02-2024 08:09-0500 Heart rate 65 /min MARQUIS NKANSAH-AMANKRA [facility] 11-02-2024 08:09-0500 Systolic blood pressure 102 mm[Hg] MARQUIS NKANSAH-AMANKRA [facility] 09-14-2024 08:19-0400 Body height 182.9 cm Blaise Chicas DPM Work Phone: [facility] 09-14-2024 08:19-0400 Body mass index (BMI) [Ratio] 39.2 kg/m2 Blaise Chicas DPM Work Phone: [facility] 09-14-2024 08:19-0400 Body weight 131.09 kg Blaise Chicas DPM Work Phone: [facility] 09-14-2024 08:19-0400 Diastolic blood pressure 79 mm[Hg] Blaise Chicas DPM Work Phone: [facility] 09-14-2024 08:19-0400 Heart rate 81 /min Blaise Chicas DPM Work Phone: [facility] 09-14-2024 08:19-0400 Systolic blood pressure 128 mm[Hg] Blaise Chicas DPM Work Phone: [facility] 08-08-2024 10:25-0400 Blood Pressure Location MARQUIS NKANSAH-AMANKRA [facility] 08-08-2024 10:25-0400 Diastolic blood pressure 82 mm[Hg] MARQUIS NKANSAH-AMANKRA [facility] 08-08-2024 10:25-0400 Systolic blood pressure 140 mm[Hg] MARQUIS LOUISE [facility] 08-03-2024 08:45-0400 Body height 182.9 cm Blaise Chicas DPM Work Phone: [facility] 08-03-2024 08:45-0400 Body mass index (BMI) [Ratio] 39.2 kg/m2 Blaise Brown DPM Work Phone: [facility] 08-03-2024 08:45-0400 Body weight 131.09 kg Blaise Brown DPM Work Phone: [facility] 08-03-2024 08:45-0400 Diastolic blood pressure 82 mm[Hg] Blaise Chicas DPM Work Phone: [facility] 08-03-2024 08:45-0400 Heart rate 75 /min Blaise Chicas DPM Work Phone: [facility] 08-03-2024 08:45-0400 Respiratory rate 18 /min Blaise Chicas DPM Work Phone: [facility] 08-03-2024 08:45-0400 Systolic blood pressure 130 mm[Hg] Blaise Chicas DPM Work Phone: [facility] 08-01-2024 11:24-0400 Body height 182.9 cm Barrie Montoya MD Work Phone: [facility] 08-01-2024 11:24-0400 Body mass index (BMI) [Ratio] 39.2 kg/m2 Barrie Montoya MD Work Phone: [facility] 08-01-2024 11:24-0400 Body weight 131.09 kg Barrie Montoya MD Work Phone: [facility] 08-01-2024 11:24-0400 Diastolic blood pressure 93 mm[Hg] Barrie Montoya MD Work Phone: [facility] 08-01-2024 11:24-0400 Heart rate 73 /min Barrie Montoya MD Work Phone: [facility] 08-01-2024 11:24-0400 Systolic blood pressure 182 mm[Hg] Barrie Montoya MD Work Phone: [facility] 07-20-2024 08:27-0400 Body height 182.9 cm Blaise Chicas DPM Work Phone: [facility] 07-20-2024 08:27-0400 Body mass index (BMI) [Ratio] 26.04 kg/m2 Blaise Chicas DPM Work Phone: [facility] 07-20-2024 08:27-0400 Body weight 87.09 kg Blaise Chicas DPM Work Phone: [facility] 07-20-2024 08:27-0400 Diastolic blood pressure 81 mm[Hg] Blaise Chicas DPM Work Phone: [facility] 07-20-2024 08:27-0400 Heart rate 75 /min Blaise Chicas DPM Work Phone: [facility] 07-20-2024 08:27-0400 Respiratory rate 18 /min Blaise Chicas DPM Work Phone: [facility] 07-20-2024 08:27-0400 Systolic blood pressure 130 mm[Hg] Blaise Chicas DPM Work Phone: [facility] 07-06-2024 08:27-0400 Body height 182.9 cm Blaise Chicas DPM Work Phone: [facility] 07-06-2024 08:27-0400 Body mass index (BMI) [Ratio] 26.04 kg/m2 Blaise Brown DPM Work Phone: [facility] 07-06-2024 08:27-0400 Body weight 87.09 kg Blaise Brown DPM Work Phone: [facility] 07-06-2024 08:27-0400 Diastolic blood pressure 81 mm[Hg] Blaise Chicas DPM Work Phone: [facility] 07-06-2024 08:27-0400 Heart rate 77 /min Blaise Dao DPM Work Phone: [facility] 07-06-2024 08:27-0400 Systolic blood pressure 128 mm[Hg] Blaise Chicas DPM Work Phone: [facility] 10-14-2023 14:33-0500 Diastolic blood pressure 70 mm[Hg] Nereyda Patricia [facility] 10-14-2023 14:33-0500 Mean blood pressure 93 mm[Hg] Nereyda Patricia [facility] 10-14-2023 14:33-0500 Systolic blood pressure 138 mm[Hg] Nereyda Patricia [facility] 10-14-2023 14:18-0500 Blood Pressure Location Nereyda Patricia [facility] 10-14-2023 14:18-0500 Body temperature 97.88 [degF] Nereyda Patricia [facility] 10-14-2023 14:18-0500 Diastolic blood pressure 73 mm[Hg] Nereyda Patricia [facility] 10-14-2023 14:18-0500 Heart rate 91 /min Nereyda Patricia [facility] 10-14-2023 14:18-0500 Systolic blood pressure 143 mm[Hg] Nereyda Patricia [facility] 10-01-2023 12:13-0500 Diastolic blood pressure 66 mm[Hg] Nereyda Patricia [facility] 10-01-2023 12:13-0500 Mean blood pressure 104 mm[Hg] Nereyda Patricia [facility] 10-01-2023 12:13-0500 Systolic blood pressure 179 mm[Hg] Nereyda Patricia [facility] 10-01-2023 12:10-0500 Blood Pressure Location Nereyda Patricia [facility] 10-01-2023 12:10-0500 Body temperature 98.42 [degF] Nereyda Patricia [facility] 10-01-2023 12:10-0500 Diastolic blood pressure 77 mm[Hg] Nereyda Patricia [facility] 10-01-2023 12:10-0500 Heart rate 81 /min Nereyda Patricia [facility] 10-01-2023 12:10-0500 Respiratory rate 14 /min Nereydasergio JoyaPatricia [facility] 10-01-2023 12:10-0500 Systolic blood pressure 168 mm[Hg] Nereyda Patricia [facility] 06-10-2023 10:43-0400 Diastolic blood pressure 64 mm[Hg] Nereyda Patricia [facility] 06-10-2023 10:43-0400 Heart rate 76 /min Nereyda Patricia [facility] 06-10-2023 10:43-0400 Respiratory rate 16 /min Nereyda Patricia [facility] 06-10-2023 10:43-0400 SaO2% (BldA) [Mass fraction] 95 % Nereyda Patricia [facility] 06-10-2023 10:43-0400 Systolic blood pressure 121 mm[Hg] Nereyda Patricia [facility] 04-13-2023 14:19-0400 Diastolic blood pressure 70 mm[Hg] Nereyda Patricia [facility] 04-13-2023 14:19-0400 Mean blood pressure 95 mm[Hg] Neredya Patricia [facility] 04-13-2023 14:19-0400 Systolic blood pressure 146 mm[Hg] Nereyda Patricia [facility] 04-13-2023 14:15-0400 Blood Pressure Location Nereyda Patricia [facility] 04-13-2023 14:15-0400 Body temperature 97.7 [degF] Nereyda Patricia [facility] 04-13-2023 14:15-0400 Diastolic blood pressure 87 mm[Hg] Nereyda Patricia [facility] 04-13-2023 14:15-0400 Heart rate 70 /min Nereyda Patricia [facility] 04-13-2023 14:15-0400 Systolic blood pressure 150 mm[Hg] Nereyda Patricia [facility] 06-09-2022 10:02-0400 Body temperature 96.98 [degF] Nereyda Patricia [facility] 06-09-2022 10:02-0400 Diastolic blood pressure 75 mm[Hg] Nereyda Patricia [facility] 06-09-2022 10:02-0400 Heart rate 72 /min Nereyda Gomez [facility] 06-09-2022 10:02-0400 SaO2% (BldA) [Mass fraction] 97 % Nereyda Gomez [facility] 06-09-2022 10:02-0400 Systolic blood pressure 139 mm[Hg] Nereyda Gomez [facility] 05-11-2022 11:30-0400 Diastolic blood pressure 102 mm[Hg] Bender SALAM [facility] 05-11-2022 11:30-0400 Heart rate 86 /min Bender SALAM [facility] 05-11-2022 11:30-0400 Respiratory rate 15 /min Bender SALAM [facility] 05-11-2022 11:30-0400 SaO2% (BldA) [Mass fraction] 95 % Bender SALAM [facility] 05-11-2022 11:30-0400 Systolic blood pressure 172 mm[Hg] Bender SALAM [facility] 05-11-2022 11:15-0400 Diastolic blood pressure 88 mm[Hg] Bender SALAM [facility] 05-11-2022 11:15-0400 Heart rate 86 /min Bender SALAM [facility] 05-11-2022 11:15-0400 Respiratory rate 18 /min Bender SALAM [facility] 05-11-2022 11:15-0400 SaO2% (BldA) [Mass fraction] 97 % Bender SALAM [facility] 05-11-2022 11:15-0400 Systolic blood pressure 170 mm[Hg] Bender SALAM [facility] 05-11-2022 11:10-0400 Diastolic blood pressure 108 mm[Hg] Bender SALAM [facility] 05-11-2022 11:10-0400 Heart rate 85 /min Bender SALAM [facility] 05-11-2022 11:10-0400 Respiratory rate 14 /min Bender SALAM [facility] 05-11-2022 11:10-0400 SaO2% (BldA) [Mass fraction] 97 % Bender SALAM [facility] 05-11-2022 11:10-0400 Systolic blood pressure 157 mm[Hg] Bender SALAM [facility] 05-11-2022 11:02-0400 Body temperature 97.34 [degF] Bender SALAM [facility] 05-11-2022 10:27-0400 Blood Pressure Location Bender SALAM [facility] 05-11-2022 10:23-0400 Blood Pressure Location Bender SALAM [facility] 05-11-2022 10:23-0400 Body temperature 98.24 [degF] Bender SALAM [facility] 03-31-2022 09:53-0400 Blood Pressure Location Nereyda Gomez [facility] 03-31-2022 09:53-0400 Body temperature 97.7 [degF] Nereyda Gomez [facility] 03-31-2022 09:53-0400 Diastolic blood pressure 72 mm[Hg] Nereyda Gomez [facility] 03-31-2022 09:53-0400 Heart rate 73 /min Nereyda Gomez [facility] 03-31-2022 09:53-0400 SaO2% (BldA) [Mass fraction] 96 % Nereyda Gomez [facility] 03-31-2022 09:53-0400 Systolic blood pressure 129 mm[Hg] Nereyda Gomez [facility] Encounters Encounter Date Encounter Type Care Provider Facility Start: 03-04-2026 ambulatory MARQUIS LOUISE Facility: [facility] Start: 06-11-2025 End: 06-11-2025 ambulatory LU OLMEDO Facility: [facility] Start: 06-11-2025 End: 06-11-2025 Patient encounter procedure LU OLMEDO [facility] Start: 05-28-2025 End: 05-28-2025 ambulatory [facility] Start: 05-17-2025 Evaluation and manag ement of inpatient [facility] Start: 05-17-2025 Evaluation and manag ement of inpatient NICOLE ERIC [facility] Start: 05-16-2025 Evaluation and manag ement of inpatient [facility] Start: 05-16-2025 Evaluation and manag ement of inpatient GARCÍA MUIR [facility] Start: 05-15-2025 Evaluation and manag ement of inpatient SAM MORA [facility] Start: 05-15-2025 End: 05-15-[address] [facility] Start: 05-14-2025 Evaluation and manag ement of inpatient NEDRA [facility] Start: 05-14-2025 Evaluation and manag ement of inpatient NEDRA [facility] Start: 05-11-2025 Evaluation and manag ement of inpatient NEDRA [facility] Start: 05-10-2025 [facility]: 05-10-[facility]25 End: 05-17-2025 Evaluation and management of inpatient JADEN PIEDRA [facility] Start: 05-08-2025 End: 05-08-2025 Bamboo flowsheet Mony Herron ORTHOPEDIC CAST SPECIALIST Work Phone: [facility] Start: 05-08-2025 End: 05-08-2025 Bamboo flowsheet Mony Herron ORTHOPEDIC CAST SPECIALIST Work Phone: [facility] Start: 05-08-2025 End: 05-08-2025 Office outpatient visit 40 minutes Mony Herron ORTHOPEDIC CAST SPECIALIST Work Phone: [facility] Comment on above: Benign essential mikel mor (Primary Dx); Neurogenic pain; Sequelae of cerebral infarction; Cervical paraspinal muscle spasm; JOSIAH (obstructive sleep apnea); Carotid stenosis, bilateral; Polyneuropathy Start: 05-08-2025 End: 05-08-2025 ambulatory MONY HERRON Not Available Start: 04-30-2025 End: 04-30-2025 ambulatory [facility] Start: 04-14-2025 End: 04-18-2025 Evaluation and management of inpatient DO Layne VERDUGO Facility:[facility] Start: 04-14-2025 End: 04-16-2025 Emergency department patient visit [facility] Start: 04-14-2025 ambulatory [facility] Start: 04-14-2025 Emergency department patient visit Rivas Griggs Facility:[facility] Start: 04-14-2025 End: 04-18-2025 Evaluation and management of inpatient Layne VERDUGO [facility] Start: 04-12-2025 End: 04-12-2025 Bamboo flowsheet Blaise [...] with diabetic polyneuropathy, unspecified whether 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 helper termite insulin use ([facility]); Pain due to onychomycosis of [...] bilateral Start: 04-10-2025 End: 04-10-2025 ambulatory BARRIE FLANNERYBubba Not Available Start: 03-12-2025 End: 03-12-2025 ambulatory [facility] Start: 03-08-2025 End: 03-08-2025 Bamboo [...] with diabetic polyneuropathy, unspecified whether 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 helper termite insulin use ([facility]); Pain due to onychomycosis of toenails of both feet Start: 03-08-2025 End: 03-08-2025 ambulatory BLAISE CHICAS Not Available Start: 02-28-2025 End: 02-28-2025 ambulatory [facility] Start: 02-15-2025 ambulatory [facility] Start: 02-14-2025 End: 02-17-2025 Emergency department patient visit [facility] Start: 01-03-2025 End: 01-03-2025 ambulatory RUTHIE [facility] Start: 12-14-2024 End: 12-14-2024 ambulatory [facility] Start: 12-04-2024 End: 12-04-2024 ambulatory MARQUIS LOUISE Facility:[facility] Start: 12-04-2024 End: 12-04-2024 Patient encounter procedure MARQUIS LOUISE [facility] Start: 11-30-2024 End: 11-30-2024 Bamboo flowsheet Blaise [...] with diabetic polyneuropathy, unspecified whether 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 helper termite insulin use ([facility]); Pain due to onychomycosis of toenails of both feet Start: 11-30-2024 End: 11-30-2024 ambulatory BLAISE CHICAS Not Available Start: 11-06-2024 End: 11-06-2024 ambulatory Mejia SINGH Facility:[facility] Start: 11-06-2024 End: 11-06-2024 Patient encounter procedure [facility] SINGH [facility] Start: 11-02-2024 End: 11-02-2024 ambulatory MARQUIS NKNEELAAH-AMANKRA Facility:[facility] Start: 11-02-2024 End: 11-02-2024 Patient encounter procedure MARQUIS NKANSAH-AMANKRA [facility] Start: 10-30-2024 End: 10-30-2024 ambulatory Mejia SINGH Facility:[id number] Start: 10-25-2024 End: 10-25-2024 ambulatory MARQUIS NKANSAH-AMANKRA Facility:[facility] Start: 10-23-2024 End: 10-23-2024 ambulatory MARQUIS LOUISE Facility:[facility] Start: 10-23-2024 End: 10-23-2024 Patient encounter procedure MARQUIS LOUISE [facility] Start: 10-02-2024 End: 10-02-2024 ambulatory MARQUIS LOUISE Facility: E[facility] Start: 09-25-2024 End: 09-25-2024 ambulatory MARQUIS LOUISE Facility:[facility] Start: 09-25-2024 End: 09-25-2024 Patient encounter procedure MARQUIS LOUISE [facility] Start: 09-14-2024 End: 09-14-2024 Bamboo flowsheet [...] underlying condition with diabetic polyneuropathy, unspecified whether skilled nursing insulin use ([facility]); Pain due to onychomycosis of toenails of both feet Start: 09-14-2024 End: 09-14-2024 ambulatory BLAISE CHICAS Not Available Start: 08-24-2024 End: 08-24-2024 Bamboo tarik Joy MD Work Phone: [facility] Start: 08-24-2024 End: 08-24-2024 Bamboo tarik Joy MD Work Phone: [facility] Start: 08-24-2024 End: 08-24-2024 Office outpatient visit 15 minutes Rodney Joy MD Work Phone: [facility] Comment on above: Melanocytic nevus of trunk (Primary Dx); Actinic keratosis; Lentigines; Seborrheic keratosis Start: 08-24-2024 End: 08-24-2024 ambulatory RODNEY JOY Not Available Start: 08-22-2024 ambulatory MARQUIS NKANSAH-AMANKRA Facility:[facility] Start: 08-17-2024 ambulatory MARQUIS NKANSAH-AMANKRA Facility:[facility] Start: 08-14-2024 End: 08-17-2024 Telephone encounter Barrie Montoya MD Work Phone: [facility] 111 Start: 08-08-2024 End: 08-08-2024 ambulatory MARQUISRANDA NEELY-AMANKRA Facility:[facility] Start: 08-08-2024 End: 08-08-2024 Patient encounter procedure MARQUIS REINOSOAH-AMANKRA [facility] Start: 08-03-2024 End: 08-03-2024 Bamboo flowsheet Blaise [...] Bamboo flowsheet Barrie Montoya MD Work Phone: [facility] Start: 08-01-2024 End: 08-01-2024 Bamboo flowsheet Barrie Montoya MD Work Phone: [facility] Start: 08-01-2024 End: 08-01-2024 Office outpatient visit 25 minutes Barrie Montoya MD Work Phone: [facility] NEUR B Comment on above: Neurogenic pain (Jyothi kervin Dx); Benign essential tremor Start: 08-01-2024 End: 08-01-2024 ambulatory BARRIE MONTOYA Not Available Start: 07-20-2024 End: 07-20-2024 Bamboo flowsheet Blaise Chicas DPM Work Phone: [facility] Start: 07-20-2024 End: 07-20-2024 Bamboo flowsheet Blaise Chicas DPM Work Phone: [facility] Start: 07-20-2024 End: 07-20-2024 Patient encounter procedure Blaise Chicas DPM Work Phone: [facility] Comment on above: Verruca plantaris (P rimary Dx); Foot pain, right; Xerosis cutis Start: 07-20-2024 End: 07-20-2024 ambulatory BLAISE CHICAS Not Available Start: 07-06-2024 End: 07-06-2024 Bamboo flowsheet Blaise Chicas DPM Work Phone: [facility] Start: 07-06-2024 End: 07-06-2024 Bamboo flowsheet Blaise Chicas DPM Work Phone: [facility] Start: 07-06-2024 End: 07-06-2024 Office outpatient visit 15 minutes Blaise Chicas DPM Work Phone: [facility] Comment on above: Xerosis cutis (Prima ry Dx); Verruca plantaris; Foot pain, right; Diabetes mellitus due to underlying condition with diabetic polyneuropathy, unspecified whether 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 helper termite insulin use ([facility]); Onychomycosis; Toe pain, bilateral Start: 07-06-2024 End: 07-06-2024 ambulatory BLAISE CHICAS Not Available Start: 07-05-2024 End: 07-05-2024 ambulatory JEFF [facility] Start: 06-01-2024 End: 06-01-2024 ambulatory BLAISE Cara CHICAS Not Available Start: 10-14-2023 End: 10-14-2023 Patient encounter procedure Nereyda Gomez [facility] Start: 10-01-2023 End: 10-01-2023 Patient encounter procedure Nereyda Joyametz [facility] Start: 10-01-2023 End: 10-01-2023 Patient encounter procedure Nereyda Joyametz [facility] Start: 09-13-2023 End: 09-13-2023 Patient encounter procedure Nereyda Joyametz [facility] Start: 06-10-2023 End: 06-10-2023 Patient encounter procedure Nereyda Joyametz [facility] Start: 04-15-2023 End: 04-15-2023 Lab Drop off Nereyda Joyametz [facility] Start: 04-13-2023 End: 04-13-2023 Patient encounter procedure Nereydasergio Joyametz [facility] Start: 03-24-2023 [...] Patient encounter procedure Nereyda Gomez [facility] Start: 06-08-2022 End: 06-09-2022 ambulatory GAMALIEL DALEY Facility:[facility] Start: 05-11-2022 End: 05-11-2022 Patient encounter procedure Napoleon NOVA [facility] Start: 04-28-2022 End: 04-29-[address] VAN YOUSSEF . Facility:[facility] Start: 03-31-2022 End: 03-31-2022 Patient encounter procedure Nereyda Gomez [facility] Start: 2019 End: 02-07-2019 Patient encounter procedure DEFAULT PHYSICIAN Facility:[facility] Procedures Date Procedure Procedure Detail Performing Clinician Start: 08-24-2024 CRYOTHERAPY SKIN LESION Rodney Joy MD Work Phone: Start: 05-11-2022 Colonoscopy Napoleon Fernandez Comment on above: 2 polyps, diveticulo sis, IH Start: 01-11-2017 Cardioversion Nereyda vaughan Back structure, excl uding neck (body structure) Nereyda Gomez Cholecystectomy Nereyda Funk tz Colonoscopy Nereyda Gomez History of hernia repair Ave Gomez Tonsillectomy Nereyda Gomez Plan of Treatment Date Care Activity Detail Author Start: 10-09-2025 End: 10-09-2025 Patient encounter procedure 10/09/2025 1:45 PM EST Office Visit [facility] [address] [place] [phone] Barrie Montoya MD [address] [address] [facility] Start: 09-11-2025 End: 09-11-2025 Patient encounter procedure 09/11/2025 1:15 PM EDT Office Visit [facility] [address] [place] [phone] Rodney Joy MD [address] [place], [place] [id number] [facility] Start: 08-23-2025 End: 08-23-2025 Patient encounter procedure 08/23/2025 10:50 AM EDT Office Visit [facility] [address] [place] [address] Rodney Joy MD [address] [place] [address] [facility] Start: 07-10-2025 End: 07-10-2025 Patient encounter procedure 07/10/2025 10:30 AM EDT Office Visit [facility] [address] [facility] [address] [place] [address] Barrie Montoya MD [address] [address] [facility] Start: 06-21-2025 End: 06-21-2025 Patient encounter procedure 06/21/2025 10:40 AM EDT Office Visit [facility] [address] [phone] Blaise Chicas DPM [address] [address] [facility] Start: 05-08-2025 End: 05-08-2025 Patient encounter procedure 05/08/2025 2:00 PM EDT Office Visit [facility] [address] [phone] Mony Herron, ORTHOPEDIC CAST SPECIALIST [address] [address] Arrived [facility] Comment on above: Arrived Start: 04-12-2025 End: 04-12-2025 Patient encounter procedure [facility] Comment on above: Verruca plantaris (P rimary Dx); Foot pain, right; Diabetes mellitus due to underlying condition with diabetic polyneuropathy, unspecified whether skilled nursing insulin use ([facility]); Pain due to onychomycosis of toenails of both feet Start: 03-08-2025 End: 03-08-2025 Patient encounter procedure 03/08/2025 9:20 AM EDT Office Visit [facility] 112 [facility] [address] [place] [phone] Blaise Chicas DPM [address] [address] Verruca plantaris (Primary Dx); Foot pain, right; Diabetes mellitus due to underlying condition with diabetic polyneuropathy, unspecified whether 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 helper termite insulin use (CMS/HCC); Pain due to onychomycosis of toenails of both feet [facility] Comment on above: Verruca plantaris (P rimary Dx); Foot pain, right; Diabetes mellitus due to underlying condition with diabetic polyneuropathy, unspecified whether 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 helper termite insulin use (CMS/HCC); Pain due to onychomycosis of toenails of both feet Start: 02-15-2025 End: 02-15-2025 Patient encounter procedure 02/15/2025 8:40 AM EDT Office Visit [facility] 112 [facility] [address] [place] [address] Blaise Chicas DPJim 3006 [facility] [address] [place] [address] [facility] Start: 11-30-2024 End: 11-30-2024 Patient encounter procedure [facility] Comment on above: Verruca plantaris (P rimary Dx); Foot pain, right; Diabetes mellitus due to underlying condition with diabetic polyneuropathy, unspecified whether 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 helper termite insulin use (CMS/HCC); Pain due to onychomycosis of toenails of both feet Start: 10-10-2024 End: 10-10-2024 Patient encounter procedure 10/10/2024 10:45 AM EST Office Visit [facility] [address] [facility] [address] [place] [address] Barrie Montoya MD 18[address] [facility] [address] [place] [address] [facility] Start: 09-14-2024 End: 09-14-2024 Patient encounter procedure [facility] Comment on above: Verruca plantaris (P rimary Dx); Foot pain, right; Diabetes mellitus due to underlying condition with diabetic polyneuropathy, unspecified whether skilled nursing insulin use (CMS/HCC); Pain due to onychomycosis of toenails of both feet Start: 08-24-2024 End: 08-24-2024 Patient encounter procedure [facility] Comment on above: Arrived Start: 08-03-2024 End: 08-03-2024 Patient encounter procedure [facility] Comment on above: Verruca plantaris (P rimary Dx); Foot pain, right; Xerosis cutis Start: 08-01-2024 End: 08-01-2024 Patient encounter procedure 08/01/2024 1:30 PM EDT Office Visit [facility] [address] [facility] [address] [place] [phone] Barrie Montoya MD 5319 [facility] [address] [phone] [facility] Start: 08-01-2024 End: 08-01-2024 Patient encounter procedure 08/01/2024 11:30 AM EDT Office Visit [facility] [address] [facility] [address] [place] [phone] Barrie Montoya MD 5319 [facility] [address] [address] Arrived [facility] Comment on above: Arrived Start: 07-20-2024 End: 07-20-2024 Patient encounter procedure [facility] Comment on above: Verruca plantaris (P rimary Dx); Foot pain, right; Xerosis cutis Start: 07-16-2024 Influenza vaccination Influenza Vacc ine (#1) [facility] Start: 07-06-2024 End: 07-06-2024 Patient encounter procedure 07/06/2024 8:40 AM EDT Office Visit [facility] 112 [facility] [address] [place] [address] Blaise Chicas DPM 3006 [facility] [address] [place] [address] Verruca plantaris (Primary Dx); Foot pain, right; Diabetes mellitus due to underlying condition with diabetic polyneuropathy, unspecified whether 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 helper termite insulin use (CMS/HCC); Onychomycosis; Toe pain, bilateral; Xerosis cutis [facility] Comment on above: Verruca plantaris (P rimary Dx); Foot pain, right; Diabetes mellitus due to underlying condition with diabetic polyneuropathy, unspecified whether 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 helper termite insulin use (CMS/HCC); Onychomycosis; Toe pain, bilateral; Xerosis cutis Immunizations Immunization Date Immunization Notes Care Provider [facility] 04-05-2025 zoster vaccine recombinant LU SHARA [facility] 10-21-2023 RSV vaccine, preF A-preF B, recombinant LU SHARA [facility] 08-20-2023 influenza virus vaccine, unspecified formulation Blaise COLVIN Work Phone: [facility] 10-21-2022 SARS-CoV-2 (COVID-19 ) [id number] Nereyda Patricia [facility] Comment on above: Result Comment: 2022: [id number] 08-26-2021 SARS-CoV-2 (COVID-19 ) mRNA BNT-162b2 vax Launchpilots [facility] 01-01-2021 SARS-CoV-2 (COVID-19 ) mRNA BNT-162b2 vax Vital Systemsmetz [facility] 12-09-2020 SARS-CoV-2 (COVID-19 ) mRNA BNT-162b2 Lecerex [employer] [facility] 11-06-2020 zoster vaccine recombinant LU SHARA [facility] 08-27-2020 influenza virus vaccine, unspecified formulation Nereyda Gomez [facility] 10-30-2019 tetanus toxoid, reduced diphtheria toxoid, and acellular pertussis vaccine, adsorbed LU OLMEDO [facility] 10-30-2019 zoster vaccine recombinant LU OLMEDO [facility] 08-16-2017 pneumococcal conjugate vaccine, 13 valent Nereyda Gomez [facility] 08-05-2017 influenza, unspecified formulation Nereyda Gomez [facility] 09-20-2015 zoster vaccine, live Nereyda Nath [facility] NEGATED: Highlighted row has not occurred!10-13-2023 influenza virus vaccine, unspecified formulation Nereyda Gomez [facility] NEGATED: Highlighted row has not occurred!09-29-2023 influenza virus vaccine, unspecified formulation Nereyda Gomez [facility] Payers Date Payer Category Payer Private Health Insurance [id number] 2022 Unknown 2005 Unknown [id number] 2004 Medicare [id number] 1959 Medicare [id number] 1939 Unknown [id number] 2.16.8 40.1.061631.3.579.2.647 1939 Unknown [id number] 2.16.84 0.1.941679.3.579.2.593 1939 Unknown [id number] 2.16.84 0.1.533256.3.579.2.593 1939 Unknown [id number] 2.16.84 0.1.786796.3.579.2.593 1939 Unknown [id number] 2.16.84 0.1.706286.3.579.2.593 1939 Unknown [id number] 2.16.84 0.1.035072.3.579.2.593 1939 Unknown [id number] 2.16.84 0.1.356888.3.579.2.593 1939 Unknown [id number] 2.16.84 0.1.965851.3.579.2.593 1939 Unknown [id number] 2.16.84 0.1.986720.3.579.2.593 1939 Unknown [id number] 2.16.84 0.1.879362.3.579.2.593 1939 Unknown [id number] 2.16.84 0.1.136739.3.579.2.593 1939 Unknown [id number] 2.16.84 0.1.902811.3.579.2.593 1939 Unknown [id number] 2.16.8 40.1.967029.3.579.2.727 1939 Unknown [id number] 2.16.8 40.1.278397.3.579.2.727 1939 Unknown [id number] 2.16.8 40.1.941249.3.579.2.727 1939 Unknown [id number] 2.16.8 40.1.823466.3.579.2.727 1939 Unknown [id number] 2.16.8 40.1.993577.3.579.2.727 1939 Unknown [id number] 2.16. 840.1.284554.3.579.2.1286 1939 Unknown [id number] 2.16. 840.1.111726.3.579.2.1286 1939 Unknown [id number] 2.16. 840.1.753395.3.579.2.1286 1939 Unknown [id number] 2.16. 840.1.495603.3.579.2.128 1939 Unknown [id number] 2.16. 840.1.416812.3.579.2.128 1939 Unknown [id number] 2.16. 840.1.476206.3.579.2.128 1939 Unknown [id number] 2.16. 840.1.382117.3.579.2.128 1939 Unknown [id number] 2.16. 840.1.639727.3.579.2.128 1939 Unknown [id number] 2.16. 840.1.335323.3.579.2.128 1939 Unknown [id number] 2.16.8 40.1.806511.3.579.2.1259 1939 Unknown [id number] 2.16.84 0.1.283337.3.579.2.1259 1939 Unknown [id number] 2.16.84 0.1.296350.3.579.2.1259 1939 Unknown [id number] 2.16.84 0.1.669980.3.579.2.1259 1939 Unknown [id number] 2.16.84 0.1.836916.3.579.2.125 1939 Unknown [id number] 2.16.84 0.1.756673.3.579.2.1259 1939 Unknown [id number] 2.16.84 0.1.726225.3.579.2.1259 1939 Unknown [id number] 2.16.84 0.1.927909.3.579.2.1259 1939 Unknown [id number] 2.16.84 0.1.086515.3.579.2.1259 1939 Unknown [id number] 2.16.84 0.1.178093.3.579.2.1259 1939 Unknown [id number] 2.16.84 0.1.507164.3.579.2.1259 1939 Unknown [id number] 2.16.84 0.1.296866.3.579.2.1259 1939 Unknown [id number] 2.16.8 40.1.483186.3.579.2.727 1939 Unknown [id number] 2.16.8 40.1.037904.3.579.2.727 1939 Unknown [id number] 2.16.8 40.1.150636.3.579.2.727 1939 Unknown [id number] 2.16.8 40.1.680314.3.579.2.727 1939 Unknown [id number] 2.16.8 40.1.012934.3.579.2.727 1939 Unknown [id number] 2.16.8 40.1.687604.3.579.2.727 1939 Unknown [id number] 2.16.8 40.1.456730.3.579.2.727 1939 Unknown [id number] 2.16.8 40.1.060762.3.579.2.727 1939 Unknown [id number] 2.16.8 40.1.029530.3.579.2.727 1939 Unknown [id number] 2.16.8 40.1.619431.3.579.2.727 1939 Unknown [id number] 2.16.8 40.1.939206.3.579.2.727 1939 Unknown [id number] 2.16.8 40.1.112064.3.579.2.727 1939 Unknown [id number] 2.16.8 40.1.801970.3.579.2.727 1939 Unknown [id number] 2.16.8 40.1.372581.3.579.2.727 1939 Unknown [id number] 2.16.8 40.1.685448.3.579.2.727 Social History Date Type Detail Facility Start: 03-31-2022 End: 08-24-2024 Tobacco smoking status Ex-smoker (finding) [facility] Start: 06-11-2025 Tobacco smoking status Never [facility] Start: 08-24-2024 End: 04-12-2025 Sex Assigned At Male [facility] Start: 08-24-2023 Tobacco smoking stat [facility] Tobacco smoking consumption unknown [facility] [...] of Social function [facility] Sexual Orientation [facility] Start: 02-26-2010 Sex Male (finding) [facility] Functional Status Date Assessment Result Facility 12-04-2024 Functional Status N/A [facility] 11-02-2024 Functional Status N/A [facility] 10-23-2024 Functional Status N/A [facility] 09-25-2024 Functional Status N/A [facility] 08-08-2024 Functional Status N/A [facility] 10-14-2023 Functional Status N/A [facility] 10-01-2023 Functional Status No [facility] 04-13-2023 Functional Status N/A [facility] 06-09-2022 Functional Status N/A [facility] 05-11-2022 Functional Status N/A [facility] Clinical Notes 03-31-2022 to 06-12-2025 Mony Herron, ORTHOPEDIC CAST SPECIALIST - 05/08/2025 2:00 PM EDOscar Herron, ORTHOPEDIC CAST SPECIALIST - 05/08/2025 2:00 PM EDOscar Herron, ORTHOPEDIC CAST SPECIALIST - 05/08/2025 2:00 PM EDOscar Herron, ORTHOPEDIC CAST SPECIALIST - 05/08/2025 2:00 PM EDT Note Date [...] Follow these instructions at home: ??? Take phec-kfy-nmovqeq and prescription medicines only as told by [...] do not get (more content not included)... [facility] 05-28-2025 Note SUBJECTIVE Reason for Visit: Nadir Beth is a 85 y.o. year old male patient being seen for status post TAVR follow-up. HPI: Nadir Beth is a 85 y.o. year old male with significant medical history of A-fib on Xarelto, hypertension, HFpEF, CKD, recent history of CVA 4 months back, renal artery stenosis transferred from [facility] for acute on chronic heart failure. Patient had history of stroke 4 months back and was in rehab patient has been having progressive lower extremity edema for few days. Patient was advised to increase his Lasix from 20 to 40 mg and blood work was done which showed BNP 6214 and was advised to go to the ED. In [place] ED chest x-ray showed pulmonary vascular congestion [...] 3 times daily (more content not included)... [facility] 05-17-2025 Note Physical Therapy Physical Therapy Treatment [...] Clicks T-Score: 18 Assessment/Plan PT Assessment PT Assessment/POST PRODUCTION ASSISTANT Summary: The patient tolerated the PT session [...] alarm were reconnecte (more content not included)... [facility] 05-17-2025 Note Cardiology Inpatient Progress Note Subjective Reason for consult: Acute on chronic HFpEF, hypertension urgency, TAVR. HPI: Nadir Beth is a 85 y.o. year old male with significant medical history of A-fib on Xarelto, hypertension, HFpEF, CKD, recent history of CVA 4 months back, renal artery stenosis transferred from [facility] for acute on chronic heart failure. Patient had history of stroke 4 months back and was in rehab patient has been having progressive lower extremity edema for few days. Patient was advised to increase his Lasix from 20 to 40 mg and blood work was done which showed BNP 6214 and was advised to go to the ED. In [place] ED chest x-ray showed pulmonary vascular congestion [...] Daily with even (more content not included)... [facility] 05-17-2025 Note [facility]charge [facility]. Patient is medically ready for discharge. MATHEW confirmed facility is able to accept patient today. MATHEW set up ambulance transport with [facility] for 7:35 PM. Call report # ([phone]. Patient and his family notified. Treatment team and facility notified. DC packet left with patient's physical chart. [facility] 05-17-2025 Note Physical Therapy A PT treatment was attempted, however the patient was unavailable and out of the room. Will continue to follow patient for PT intervention. [facility] 05-17-2025 Note Cardiothoracic Surge ry Progress Note 05/17/2025 Room: [address] [place] [address] Subjective Sitting in bed. No complaints. Denies [...] pectoris, unstable (CMS/HCC) Nonrheumatic aortic valve stenosis Plan: S/P TAVR [...] Cardiothoracic Surgery Inpatient from 8am-4pm call Ascom #[phone]. Only use [employer] chat for general questions. If unable to reach Ascom Number call hospital peripheral edp equipment operator for Cardiothoracic Provider Promotions Assistant Sales Marketing. Cardiothoracic Surgery outpatient Office Number [phone]. Cardiothoracic Surgery outpatient . [facility] 05-17-2025 Note Attestation signed by Nikolas Gonzalez [...] anticoagulation should be held. Nikolas Gonzalez MD [facility] Pulmonary and Critical Care Medicine Primary Pulmonology Progress Note Patient - Nadir Beth Age - 85 y.o. - 1940 [facility] # - [id number] Date of Admission - 05/10/2025 2:37 AM [...] was admitted as a direct transfer from [place] on 05/10/2025 for acute on chronic heart failure. 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 He presented to the ED on the advice of his physician following an increase in lower extremity edema with associated labs showing a BNP 6200. In the [place] ED he was found to have pulmonary vascular congestion with right sided pleural effusion on chest x-ray, and found to be hypertensive at 190/68, and EKG showed A-fib, he was initially managed medically with lasix and antihypertensives prior to transfer. Patient follows up with Dr. Bland who had scheduled right heart cath on 05/10/2025. At [facility] echo was performed which was unable to [...] ABG: No results found for: PHART , [id number] , PO2ART , ZHA3ZOY , IONCALART No results found for: PHVEN , FXB8ETI , PO2VEN , GGG5WHC , IONCALVEN CBC: Results from last 7 [...] 05/14/25 0338 SODIUM (more content not included)... [facility] 05-16-2025 Note Physical Therapy Patient defers session at this time due to significant fatigue and headache. Patient recently transferred out of MICU status post TAVR on 05/15. PT will check back at a later time to complete session. [facility] 05-16-2025 Note Attestation signed by García Muir [...] Beth [facility] - 85 [facility] 1940 [id number] Date of Admission - 05/10/2025 2:37 AM HPI/Hospital Course Subjective Nadir Beth is an 85 y.o. male with a PMH of HFpEF, paroxysmal A-fib on Xarelto, CVA, T2DM, hypertension, renal artery stenosis left renal stent, and hyperlipidemia who was admitted as a direct transfer from [place] on 05/10/2025 for acute on chronic heart failure. 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 He presented to the ED on the advice of his physician following an increase in lower extremity edema with associated labs showing a BNP 6200. In the [place] ED he was found to have pulmonary vascular congestion with right sided pleural effusion on chest x-ray, and found to be hypertensive at 190/68, initially managed medically with lasix and antihypertensives prior to transfer. At [facility] echo was performed which was unable to [...] ABG: No results found for: PHART , ZNJ1UST , PO2ART , FDQ1DCI , IONCALART No results found for: PHVEN , IAU0IBN , PO2VEN , UQF9ZKV , IONCALVEN CBC: Results from last 7 [...] from last 7 days Lab Units 05/10/25 045 ALBUMIN g/dL 3.5 BILIRUBIN TOTAL mg/dL 0.4 ALT U/L 7 AST U/L 14 ALK PHOS U/L 72 Hgb A1c: Results from last 7 days Lab Units 05/11/25426 HEMOGLOBIN A1C % 9.3* Cardiac: Results from (more content not included)... [facility] 05-16-2025 Note Occupational Therapy Name: Nadir Beth [...] appropriate. Check No Charge Time attempted: 1004 [facility] 05-16-2025 Note Cardiology Inpatient Progress Note Subjective Reason for consult: Acute on chronic HFpEF, hypertension urgency, TAVR. HPI: Nadir Beth is a 85 y.o. year old male with significant medical history of A-fib on Xarelto, hypertension, HFpEF, CKD, recent history of CVA 4 months back, renal artery stenosis transferred from [facility] for acute on chronic heart failure. Patient had history of stroke 4 months back and was in rehab patient has been having progressive lower extremity edema for few days. Patient was advised to increase his Lasix from 20 to 40 mg and blood work was done which showed BNP 6214 and was advised to go to the ED. In [place] ED chest x-ray showed pulmonary vascular congestion [...] % -- 0 (more content not included)... [facility] 05-16-2025 Note Cardiothoracic Surge ry Progress Note 05/16/2025 Room: [address] [place] [address] Nadir Beth is a 85 y.o. male [...] (TTE) limited Result Date: 05/15/2025 1 1 [facility] Heart Station [address] [place] [address] [phone] (fax) Echocardiogram-[facility] Name: NADIR BETH Study Date: 05/15/2025 12:46 PM B/P: 171 mmHg/100 mmHg HR: 87 bpm Date of : 1940 Location: [facility] Height: 72 in. Age: 85 (more content not included)... [facility] 05-15-2025 Note Name: Nadir armstrong Date of : 1940 Today's Date: 05/15/25 Pt is unable to be seen for Physical Therapy at this time secondary to: per RN, pt currently off floor for TAVR. Will check back and complete therapy session as appropriate. Check No Charge Time attempted: 1515 [facility] 05-15-2025 Note Occupational Therapy Name: Nadir Beth Date of : 1940 Today's Date: 05/15/25 Pt is unable to be seen for therapy at this time secondary to Pt is off unit for TAVR. Will check back and complete therapy session as appropriate. Check No Charge Time attempted: 1501 [facility] 05-15-2025 Note Not sure baseline ki dney function, creatinine today 1.61 Will decrease Lasix to [address] [facility] 05-15-2025 Note Acute on chronic hea rt [...] for CABG/AVR specially with history of CVA [facility] 05-15-2025 Note Highest troponin billy t up to 26 Likely combination of chronic kidney disease and CHF [facility] 05-15-2025 Note Continue Zetia [facility] 05-15-2025 Note Continue sliding sca le insulin A1c came back of 9.3 [facility] 05-15-2025 Note Continue current satnam nidine 0.2/3 times daily, hydralazine 25/ 3 times daily and labetalol [facility] 05-15-2025 Note CHADS2 DS vascular s core is 7 currently on Xarelto Patient already on labetalol [facility] 05-15-2025 Note On aspirin and Zetia [facility] 05-15-2025 Note Hospital Medicine Daily Progress Note - 05/15/2025 1:08 PM; Room: [address] [place] [address] Admission: 05/10/2025 2:37 AM; Length of stay: 5 days THE HOSPITALIST TEAM PREFERS TO USE [employer] CHAT FOR NON-URGENT COMMUNICATION 7AM-7PM. IF I DO NOT RESPOND WITHIN 20 MINUTES OR URGENT MATTERS, PLEASE CALL THROUGH THE MARINE SURVEYOR. FROM 7PM-7AM, PLEASE PAGE [phone](COVR). Code Status: Full Code Barriers to Discharge: [...] daily and labetalol Acute congestive heart failure ([facility]) Acute on chronic heart [...] mellitus, with long-term current use of insulin ([facility]) Continue sliding scale insulin A1c came back of 9.3 Other hyperlipidemia Continue Zetia Chronic atrial fibrillation ([facility]) CHADS2 DS vascular score [...] 100 99 < > 101 CO2 mmol/L 29 [...] 7 days Lab (more content not included)... [facility] 05-15-2025 Note Cardiology Inpatient Progress Note Subjective Reason for consult: Acute on chronic HFpEF, hypertension urgency, TAVR. HPI: Nadir Beth is a 85 y.o. year old male with significant medical history of A-fib on Xarelto, hypertension, HFpEF, CKD, recent history of CVA 4 months back, renal artery stenosis transferred from [facility] for acute on chronic heart failure. Patient had history of stroke 4 months back and was in rehab patient has been having progressive lower extremity edema for few days. Patient was advised to increase his Lasix from 20 to 40 mg and blood work was done which showed BNP 6214 and was advised to go to the ED. In [place] ED chest x-ray showed pulmonary vascular congestion [...] lb) SpO2 96% (more content not included)... [facility] 05-15-2025 Note Patient: Nadir amanda Procedure Information Date/Time: 05/15/25 1100 Procedure: TAVR Location: [facility] CLUB MANAGER 3 / [facility] VASCULAR LAB (Cath) Providers: Claribel Cisneros MD [...] consented to blood products. Additional Equipment Requests [facility] 05-14-2025 Note Physical Therapy Physical Therapy Treatment [...] implement solutions Communication: (decreased communication with this POST PRODUCTION ASSISTANT d/t lethargy) General Assessment General Assessment Hearing: [place] - family reports he has hearing aids [...] a chair (in (more content not included)... [facility] 05-14-2025 Note Patient was admitted to the [...] code must also meet CMS criteria. Linnea Dias, RN, BSN Cardiology Outpatient Coordinator Cardiopulmonary Rehab [facility] 05-14-2025 Note Continue Zetia [facility] 05-14-2025 Note On aspirin and tia [facility] 05-14-2025 Note Acute on chronic hea rt [...] bypass grafting/AVR specially with history of CVA [facility] 05-14-2025 Note Highest troponin billy t up to 26 Likely combination of chronic kidney disease and CHF [facility] 05-14-2025 Note Continue current satnam nidine 0.2/3 times daily, hydralazine 25/ 3 times daily and labetalol [facility] 05-14-2025 Note CHADS2 DS vascular s core is 7 currently on Xarelto Patient already on labetalol [facility] 05-14-2025 Note Not sure baseline ki dney function, creatinine today 1.74 Will decrease Lasix to [address] [facility] 05-14-2025 Note Continue sliding sca le insulin A1c came back of 9.3 [facility] 05-14-2025 Note Hospital Medicine Daily Progress Note - 05/14/2025 12:11 PM; Room: 3122/3122-01 Admission: 05/10/2025 2:37 AM; Length of stay: 4 days THE HOSPITALIST TEAM PREFERS TO USE [employer] FOR NON-URGENT COMMUNICATION 7AM-7PM. IF I DO NOT RESPOND WITHIN 20 MINUTES OR URGENT MATTERS, PLEASE CALL THROUGH THE MARINE SURVEYOR. FROM 7PM-7AM, PLEASE PAGE [phone](COVR). Code Status: Full Code Barriers to Discharge: [...] mellitus, with long-term current use of insulin ([facility]) Continue sliding scale insulin A1c came back of 9.3 Other hyperlipidemia Continue Zetia Chronic atrial fibrillation ([facility]) CHADS2 DS vascular score [...] last 7 days Lab Units 05/14/25 0705 05/13/25 2055 05/13/25 1644 05/13/25 1137 05/13/25 0704 05/12/252003 POCT GLUCOSE mg/dL 209* 219* 277* 274* 222* 275* Historical Values: (Includes values prior to this (more content not included)... [facility] 05-14-2025 Note Occupational Therapy Occupational Therapy Treatment [...] friendly and cooperative Session Comments: Upon arrival handbook writer noted pts male purwick had leaked. [...] Assistance: Contact guard Static Sitting-Comment/Number of Minutes: Billposting Supervisor noted posterior lean while utilizing B UE's in bathing task. Tactile cues required to handbook writer self Dynamic Sitting Balance Dynamic Sitting [...] Eating meals?: None (Independent) Total Score OT [facility]: 21 Assessment/Plan OT Assessment OT Impairments: Decreased ADL status, Decreased endurance, Decreased functional mobility, Decreased IADLs OT Assessment/DENNY Summary: Pt is progressing toward goals but would benefit from continued therapy to increase balance, safety and endurance during functional mobility and ADL's to return to PLOF Prognosis: Fair Evaluation/Treatment Tolerance: Patient tolerated treatment well Medical Staff Made Aware: Yes Strengths: Support of extended (more content not included)... [facility] 05-14-2025 Note Cardiology Inpatient Progress Note Subjective Reason for consult: Acute on chronic HFpEF, hypertension urgency, TAVR. HPI: Nadir Beth is a 85 y.o. year old male with significant medical history of A-fib on Xarelto, hypertension, HFpEF, CKD, recent history of CVA 4 months back, renal artery stenosis transferred from [facility] for acute on chronic heart failure. Patient had history of stroke 4 months back and was in rehab patient has been having progressive lower extremity edema for few days. Patient was advised to increase his Lasix from 20 to 40 mg and blood work was done which showed BNP 6214 and was advised to go to the ED. In [place] ED chest x-ray showed pulmonary vascular congestion [...] No wheezes, rales (more content not included)... [facility] 05-14-2025 Note discharge planning: return to [facility] 0917 updates sent to [facility], via [employer] system [address]; notice sent to SNF, via [employer] system, with request to confirm bed availability today 1028 SNF has bed today but Discharge Order has been removed for Patient to have TAVR tomorrow; SNF notified via [employer] system discharge barriers: [] no insurance precert needed for SNF, but confirm bed at discharge [] [facility] 05-14-2025 Note STS Scoring for Surg ical AVR, plan to proceed with TAVR after heart team discussion with Dr. Lopez and Dr. Parham due to patients high surgical risk of intra-operative and post-operative complications. Procedure Type: Isolated AVR Perioperative Outcome Estimate % Operative Mortality 7.31% Morbidity & Mortality 22.7% Stroke 3.06% Renal Failure 9.48% Reoperation 3.75% Prolonged Ventilation 11.5% Deep Sternal Wound Infection 0.066% Long Hospital Stay (>14 days) 22.9% Short Hospital Stay (<6 days)* 13.8% Clinical Summary Planned Surgery: Isolated AVR, Elective, First cardiovascular surgery Demographics: 85 year old, White, male, 74.1kg, 182.8cm, BMI: 22.2 kg/m??? Lab Values: Creatinine: 1.74 mg/dL, Hematocrit: 31.3%, WBC Count: 10.18 10???/?L, Platelet Count: 138690 cells/?L PreOp Medications: Insulin diabetes control Risk Factors / Comorbidities: Insulin-dependent Diabetes Mellitus, Hypertension Vascular RF: Cerebrovascular Disease: CVA <= 30 days Cardiac Status: Chronic heart failure, Ejection Fraction = 50% Valve Disease: Aortic Stenosis, Mild AR, Mild MR Arrhythmia: Recent A-fib, Paroxysmal [facility] 05-13-2025 Note Highest troponin billy t up to 26 Likely combination of chronic kidney disease and CHF [facility] 05-13-2025 Note Not sure baseline ki dney function, creatinine today 1.65 [facility] 05-13-2025 Note CHADS2 DS vascular s core is 7 currently on Xarelto Patient already on labetalol [facility] 05-13-2025 Note Continue Zetia [facility] 05-13-2025 Note Acute on chronic hea rt [...] bypass grafting/AVR specially with history of CVA [facility] 05-13-2025 Note Continue sliding sca le insulin A1c came back of 9.3 [facility] 05-13-2025 Note Continue current satnam nidine 0.2 3 times daily, hydralazine 25 3 times daily and labetalol [facility] 05-13-2025 Note On aspirin and Zetia [facility] 05-13-2025 Note Hospital Medicine Daily Progress Note - 05/13/2025 10:51 AM; Room: [address] [place] [address] Admission: 05/10/2025 2:37 AM; Length of stay: 3 days THE HOSPITALIST TEAM PREFERS TO USE [employer] FOR NON-URGENT COMMUNICATION 7AM-7PM. IF I DO NOT RESPOND WITHIN 20 MINUTES OR URGENT MATTERS, PLEASE CALL THROUGH THE MARINE SURVEYOR. FROM 7PM-7AM, PLEASE PAGE [phone](COVR). Code Status: Full Code Barriers to Discharge: [...] mellitus, with long-term current use of insulin ([facility]) Continue sliding scale insulin A1c came back of 9.3 Other hyperlipidemia Continue Zetia Chronic atrial fibrillation ([facility]) CHADS2 DS vascular score [...] Results from last 7 days Lab Units 05/13/2534205/11/257 WBC AUTO 10*3/uL 10.18 11.58* HEMOGLOBIN g/dL 9.8* 9.9* HEMATOCRIT % 31.3* 31.8* MCV fL 82.4 82.8 PLATELETS AUTO 10*3/uL 287 312 Chemistry: Results from last 7 days Lab Units 05/13/2534205/12/25 0346 05/11/25 04205/10/25 0454 SODIUM mmol/L 138 138 140 139 [...] LDL 118 05/11/20 (more content not included)... [facility] 05-13-2025 Note Cardiology Inpatient Progress Note Subjective Reason for consult: Acute on chronic HFpEF, hypertension urgency HPI: Nadir Beth is a 85 y.o. year old male with significant medical history of A-fib on Xarelto, hypertension, HFpEF, CKD, recent history of CVA 4 months back, renal artery stenosis transferred from [facility] for acute on chronic heart failure. Patient had history of stroke 4 months back and was in rehab patient has been having progressive lower extremity edema for few days. Patient was advised to increase his Lasix from 20 to 40 mg and blood work was done which showed BNP 6214 and was advised to go to the ED. In [place] ED chest x-ray showed pulmonary vascular congestion [...] or distension. Bowel (more content not included)... [facility] 05-12-2025 Note CHADS2 DS vascular s core is 7 currently on Xarelto Patient already on labetalol [facility] 05-12-2025 Note Not sure baseline ki dney function, creatinine today 1.63 [facility] 05-12-2025 Note Continue sliding sca le insulin A1c came back of 9.3 [facility] 05-12-2025 Note Highest troponin billy t up to 26 Likely combination of chronic kidney disease and CHF [facility] 05-12-2025 Note Acute on chronic hea rt [...] bypass grafting/AVR specially with history of CVA [facility] 05-12-2025 Note Continue current satnam nidine 0.2 3 times daily, hydralazine 25 3 times daily and labetalol [facility] 05-12-2025 Note Continue Zetia [facility] 05-12-2025 Note On aspirin and Zetia [facility] 05-12-2025 Note Hospital Medicine Daily Progress Note - 05/12/2025 12:25 PM; Room: [address] [place] [address] Admission: 05/10/2025 2:37 AM; Length of stay: 2 days THE HOSPITALIST TEAM PREFERS TO USE [employer] FOR NON-URGENT COMMUNICATION 7AM-7PM. IF I DO NOT RESPOND WITHIN 20 MINUTES OR URGENT MATTERS, PLEASE CALL THROUGH THE MARINE SURVEYOR. FROM 7PM-7AM, PLEASE PAGE [phone](COVR). Code Status: Full Code Barriers to Discharge: [...] mellitus, with long-term current use of insulin ([facility]) Continue sliding scale insulin A1c came back of 9.3 Other hyperlipidemia Continue Zetia Chronic atrial fibrillation ([facility]) CHADS2 DS vascular score [...] LDL 118 05/11/2025 No results found for: [id number] , IRON , TI (more content not included)... [facility] 05-12-2025 Note Attestation signed by Nicole Reynolds [...] TAVR. Nicole Reynolds MD, ScM, MSc Cardiac Tire Beader Maker Email: [email or web address] Nicole Reynolds MD, ScM, MSc Cardiac Tire Beader Maker Email: [email or web address] Cardiology Progress Note Subjective Patient was examined [...] Bubble Study Result Date: 05/10/2025 1 1 [facility] Heart Station [address] [place] [address] [phone] (fax) Echocardiogram-[facility] Name: NADIR BETH Study Date: 05/10/2025 09:19 AM B/P: 178 mmHg/92 mmHg HR: 104 bpm Date of : 1940 Location: [facility] Height: 72 in. Age: 85 year(s) Patient [...] 24.6 ml/m2 LVO (more content not included)... [facility] 05-11-2025 Note . No associated orders from this encounter found during lookback period of [address] [facility] 05-11-2025 Note COrders from past 72 hours: Case Request Chief Librarian Circulation Department: Coronary angiography, Right heart cath; Standing Cardiac catheterization; Standing [facility] 05-11-2025 Note Insulin blood sugar check diet A1c came back of 9.3 [facility] 05-11-2025 Note Highest troponin billy t up to 26 Likely combination of chronic kidney disease and CHF [facility] 05-11-2025 Note Not sure baseline ki dney function, creatinine today 1.56, will monitor [facility] 05-11-2025 Note CHADS2 DS vascular s core is 7 currently on Eliquis Patient on heparin drip and plan to switch on Eliquis after procedure Patient already on labetalol [facility] 05-11-2025 Note Continue Zetia [facility] 05-11-2025 Note Acute on chronic hea rt failure with preserved EF BNP of 736 Echo 05/10 showed EF preserved. Moderate AAS and AR, mild MR and TR Patient scheduled for cardiac cath today Lasix 40 IV every 8 hours Continue goal-directed medical therapy Farxiga, labetalol, Aldactone Uptitrate meds after Cardiac cath [facility] 05-11-2025 Note Continue current satnam nidine 0.2 3 times daily, hydralazine 25 3 times daily and labetalol [facility] 05-11-2025 Note On aspirin statin wi th deconditioning and gait abnormality with fall risk PT OT to see him [facility] 05-11-2025 Note Hospital Medicine Daily Progress Note - 05/11/2025 4:14 PM; Room: [address] [place] [address] Admission: 05/10/2025 2:37 AM; Length of stay: 1 days THE HOSPITALIST TEAM PREFERS TO USE [employer] CHAT FOR NON-URGENT COMMUNICATION 7AM-7PM. IF I DO NOT RESPOND WITHIN 20 MINUTES OR URGENT MATTERS, PLEASE CALL THROUGH THE MARINE SURVEYOR. FROM 7PM-7AM, PLEASE PAGE [phone](COVR). Code Status: Full Code Barriers to Discharge: [...] daily and labetalol Acute congestive heart failure ([facility]) Acute on chronic heart [...] mellitus, with long-term current use of insulin ([facility]) Insulin blood sugar check diet A1c came back of 9.3 Other hyperlipidemia Continue Zetia Chronic atrial fibrillation ([facility]) CHADS2 DS vascular score [...] days Lab Units 05/11/25 1135 05/11/25 0748 05/10/25 2013 05/10/25 1623 05/10/25 1117 05/10/25 0717 POCT GLUCOSE mg/dL 201* 224* 237* 159* 172* 186* Historical Values: (Includes values prior to this admission) Lab Results Component Value Date TSH 1.34 05/10/2025 HDL 69 05/11/2025 LDL 118 05/11/2025 No results found for: [id number] , IRON , TIBC , C3 , C4 , SHERRY , CANCA , ASO , PSA , CEA , CA125 , CA199 , AFP , CA153 Imaging Complete Echo (TTE) w/wo Imaging Agent, Strain, 3D, Bubble Study 1 1 [facility] Heart Station [address] [facility] [place] [id number] (fax) Echocardiogram-[facility] Name: (more content not included)... [facility] 05-11-2025 Note discharge planning: to return to [facility] updates sent to [facility], via [employer] system discharge barriers: [] no insurance precert needed for any placement from this admission, but confirm bed still available before discharge [] [facility] 05-11-2025 Note CTA CHEST W IV CONTR [...] 3 cusped view, anterior view, and no GOLF [employer]UB MAKER-CAU view are saved in 3-D volume rendered [...] 26 mm Electronically signed: Yenni Stafford MD. [facility] Comment on above: Order Comment: Patie nt had pre procedure medications already for cath 05-11-2025 Note Attestation signed by Azeem Green MD at 05/11/2025 4:45 PM I personally saw and examined the patient on rounds and agree with the assessment and plan of the medical assisting program director Cardiology Progress Note Subjective Patient was examined [...] Bubble Study Result Date: 05/10/2025 1 1 [facility] Heart Station [address] [place] [address] [phone] (fax) Echocardiogram-[facility] Name: NADIR BETH Study Date: 05/10/2025 09:19 AM B/P: 178 mmHg/92 mmHg HR: 104 bpm Date of : 1940 Location: [facility] Height: 72 in. Age: 85 year(s) Patient [...] The left atr (more content not included)... [facility] 05-11-2025 Note Physical Therapy Physical Therapy Treatment [...] time General Assessment General Assessment Hearing: Mild [place] Hand Dominance: Right Static Sitting Balance Static [...] Clicks T-Score: 18 Assessment/Plan PT Assessment PT Assessment/POST PRODUCTION ASSISTANT Summary: Patient is a 85 y/o male [...] LTG - Janay (more content not included)... [facility] 05-11-2025 Note Patient: Nadir amanda Procedure Information Date/Time: 05/11/25 1130 Procedures: Coronary angiography Right heart cath Location: [facility] CLUB MANAGER 3 / [facility]ASCULAR [facility] (Cath) Providers: Aissatou Hughes MD [...] consented to blood products. Additional Equipment Requests [facility] 05-10-2025 Note Attestation signed by Landen Rice PT at 05/10/2025 3:50 PM This handbook writer (PT) provided one-on-one supervision, direction of [...] sitting EOB that improved with time. Required Grge to stand from EOB with RW and SBA during ambulation with RW. Completed session supine in bed. Patient Summary: Patient is an 85 y/o male admitted 05/10/25 from [facility] where he presented following outpatient labs [...] Intact General Assessment General Assessment Hearing: mild [place] Hand Dominance: Right Home Living Home Living [...] Level of Function Prior Function Level of [place]: Independent with ADLs and functional transfers, Independent [...] LE strength req (more content not included)... [facility] 05-10-2025 Note 05/10/25 1520 Admission Assessment Questions [...] back? Yes Pharmacy Bedside Delivery Status Interested ([facility] in [facility]) Does the patient have a employment evaluator/case manager assigned to them through their insurance? No Living Arrangement (Current/Prior to Hospitalization) Private residence;Inpatient rehab facility (2 story house w/ 5 steps. Lives with his and she is able to help after discharge as needed. Came to us from [facility] x 3 weeks / Bedhold.) Does the patient have history of HHC or SNF? Yes (Hx HHC et Current SNF.) Assistive Device Walker;Wheelchair (@ [facility]. Walker at home.) Patient's goal for discharge [facility] Was patient reminded that goal for [...] the patient's family members at his bedside. [facility] 05-10-2025 Note Occupational Therapy Occupational Therapy Evaluation [...] Intact General Assessment General Assessment Hearing: (mild [place]) Hand Dominance: Right Home Living Home Living Type of Home: House Lives With: Spouse Home Adaptive Equipment: Walker rolling, Cane (sc, gb, [facility]) Home Layout: One level Home Access: Stairs to enter with rails (5) Bathroom Shower/Tub: Tub/shower unit Prior Level of Function Prior Function Level of [place]: Independent with ADLs and functional transfers, Independent [...] Eating meals?: None (Independent) Total Score OT [facility]: 21 Assessment/Plan OT Assessment OT Impairments: Decreased ADL status, Decreased endurance, Decreased functional mobility OT Assessment/NEEDLE POLISHER Summary: (needs skilled OT due to weakness [...] use of insu (more content not included)... [facility] 05-10-2025 Note Daily Case Managemen t Update Barriers to Discharge et per Progress Note: Transfer from [facility] for elevated BNP et BLE Edema. CHF. [...] for OT? Answer: gait abnormality 05/10/[address] [facility] 05-10-2025 Note Per review of chart patient has diastolic heart failure had history of pericardial effusion as well we will optimize guideline directed medical therapy with limitation due to renal insufficiency obtain echocardiogram cycle troponins cardiology to see him [facility] 05-10-2025 Note [facility]ulin blood [facility] Antilipemic agents diet [facility] 05-10-2025 Note On aspirin statin wi th deconditioning and gait abnormality with fall risk PT OT to see him [facility] 05-10-2025 Note Adjust antihypertens ella low-salt diet with renal insufficiency unable to start JAY or ARB [facility] 05-10-2025 Note CHADS2 DS vascular s core is 7 currently on Eliquis Chronic kidney disease stage IIIb avoid nephrotoxic meds hypovolemia nephrology consult [facility] 05-10-2025 Note Hospital Medicine History and Physical 05/10/2025 4:12 AM THE HOSPITALIST TEAM PREFERS TO USE [employer] FOR NON-URGENT COMMUNICATION 7AM-7PM. IF I DO NOT RESPOND WITHIN 20 MINUTES OR URGENT MATTERS, PLEASE CALL THROUGH THE MARINE SURVEYOR. FROM 7PM-7AM, PLEASE PAGE [phone](COVR). Chief Complaint No chief complaint on file. History of Present Illness Nadir Turner is an 85 y.o. male admitted as a direct transfer from [facility] where he presented following outpatient labs [...] pulses. Heart sounds: Normal heart sounds. Comments: [id number] s4 systolic murmur Pulmonary: Effort: Pulmonary effort [...] JAY or ARB Acute congestive heart failure ([facility]) Per review of chart [...] mellitus, with long-term current use of insulin ([facility]) Insulin blood sugar check diet Other hyperlipidemia Antilipemic agents diet Chronic atrial fibrillation ([facility]) CHADS2 DS vascular score [...] this hospital stay by a member of [facility]. Past Medical History Medical History[1] Past Surgical History Surgical History[2] Social History Social History Socioeconomic History Marital status: Not on file Spouse name: Not on file Number of children: Not on file Years of education: Not on file Highest education level: Not on file Occupational History Not on file Tobacco Use Smoking status: Former Types: Cigarettes S (more content not included)... [facility] 05-08-2025 History of Present illness Narrative Associated [...] titration study Managed by Dr John in [place] Associated Problem(s): Carotid stenosis, bilateral Plan redo US carotids 2026. Associated Problem(s): Polyneuropathy (Continue current regimen.) Images from the original note were not included. Outpatient Progress Note Prev Appt: Visit date not found No chief complaint on file. Appointment Note -- FU ([facility]) Patient is here today for [...] titration study Managed by Dr John in [place] Carotid stenosis, bilateral Plan redo US carotids 2026. Polyneuropathy (Continue current regimen.) No orders of the defined types were placed in this encounter. Follow-Up - No follow-ups on file. History of Present Illness, Associated Treatments and Results - Dx (JOSIAH) Tx OFF BiPAP @ 31/10 AEs Hx [facility] Failed Semeiology Circadian Noct oxim PSG _ ([place] - _ PAPT ([place]) - AHI=8.1 @ 31/10 (max pressure) MSLT [...] UBOs Tx ASA AEs Hx Recent adm [place] for confusion. Now baseline. Images rev'd. No clear cognitive decline. Denies forgetting names, leaving tools/stove on, getting lost, etc. Onset Semeiology Imaging MR brain (02/2025, [place]) - rev'd with pt - no report sent - on my review, atrophy mod-sev, 8-10 UBOs, most tiny, 2 mod incl R fro & R splenium CC MRA head (02/2025, [place]) - no stenoses MRA neck (02/2025, [place]) - no stenoses, dom R vert US carotids (02/2025, [place]) - < 50% B by velocity, but mod plaque poss causing stenosis Testing Surgery Failed Dx L BASAL GANGLIA STROKE/WMD/ATROPHY Tx (Continue ASA, Xeralto ?, statin.) AEs Hx Onset [id number] AMS and garbled speech Semeiology To [facility]. CT and MRI showed stroke ? Subacute. Eliquis changed to Xeralto. DC to [facility] for Skilled therapy. Imaging CT Head (04/2025 [facility]) 8mm hypodensity in left caudate nucleus MRI Brain (04/2025 [facility]) Subacute left basal ganglia ischemia, mild WMD, moderate atrophy CTA H/N (04/2025 [facility]) 50% ICA stenosis B. Moderate M1 right MCA stenosis Testing Echo (04/2025 [facility]) EF 65-70%, Aortic sclerosis, severe [...] encounter medications on file as of 05/08/2025. [facility] Neurology ? [address] [facility] [address] ? [place] [address] ? ? fax Neurology ? Clinical Neurophysiology ? Epilepsy ? Sleep Disorders ? Clinical Informatics documented in this encounter [facility] 04-30-2025 Note [place] [facility] - [facility] Subjective Nadir Beth is a 85 y.o. year old male patient being seen for follow up CVA. Patient was in [facility] for 4 days. Patient complains of HERNANDEZ and leg swelling, high blood sugars. Patient is at the [facility] for rehab. Patient Active Problem List Diagnosis [...] diuretic therapy. He was admitted to the [facility] in August 2022 due to hyponatremia, hyperkalemia and acute kidney injury, leukocytosis secondary to COVID-19 causing dehydration. I saw him on 05/24/2023 and the office and he had significant evidence of volume overload by exam and echocardiogram. I intensified his diuretic regimen. He ended up getting admitted to the [facility] with acute heart failure exacerbation and [...] On 02/14/2025 he was admitted to the [facility] with altered mental status. brain MRI showed multiple infarcts. He was seen by cardiology consult and Eliquis was changed to Xarelto. He then underwent a transesophageal echocardiogram that showed no evidence of intra cardiac thrombi. The aortic valve stenosis appeared to be severe. He was seen in the emergency room at the [facility] on 03/08/2025 with chest pain episode. He ruled out for myocardial infarction and was discharged. I last saw him on 03/12/2025 and decided to proceed with cardiac catheterization as part of his workup for aortic valve replacement. The procedure is scheduled for May 10, 2025. However in the interim he was admitted on 04/14/2025 to [facility] with apparent acute cerebrovascular accident. MRI showed possible small acute/subacute infarct. The clinical presentation was that of inability to speak. Relatively quickly. He was discharged back to rehab at the [facility] (more content not included)... [facility] 04-30-2025 Note Discharge Summary Admission and Discharge Information Admit Date/Time:04/14/2025 19:37 Admitting Physician - Layne VERDUGO DO Consulting Physician - [facility] Wound, XXXX Admitting Diagnoses: Anxiety, [...] at discharge. Patient was accepted to the [facility] which patient will transfer there today in [...] Discharge Disposition Discharge To, Anticipated II - [facility] Discharged to - Other: [facility] [place] Discharge Diet Discharge Diet(s): Calorie Controlled- 1800 [...] Flomax, 0.4 m (more content not included)... [facility] Comment on above: Result Comment: Elec tronically Signed By: Will URIARTE.mary\Date and Time Signed: 04/28/25 11:42 EDT\.br\Electronically Co-Signed By: Marc Fajardo DO.br\Date and Time Co-Signed: 04/30/25 11:03 EDT 04-23-2025 [...] deep vein thrombosis (DVT) prophylaxis (Z79.899: Other 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 helper termite (current) drug therapy) Resume Xarelto 11. History [...] sclera clear E (more content not included)... [facility] Comment on above: Result Comment: Elec tronically Signed By: Anai URIARTE\.br\Date and Time Signed: 04/15/25 12:52 EDT\.br\Electronically Co-Signed By: Grey Carl III, DO\.br\Date and Time Co-Signed: 04/23/25 07:20 EDT 04-22-2025 Note Microbiology PROCEDURE: Blood Culture Charcoal [R1] SOURCE: Blood BODY SITE: Hand L COLLECTED DATE/TIME: 04/14/2025 18:05 EDT RECEIVED DATE/TIME: 04/14/2025 18:40 EDT START DATE/TIME: 04/14/2025 18:40 EDT FREE TEXT SOURCE: Indu Slaughter, Rivas Griggs M.D., Rivas H FINAL REPORTS Final Report [] Verified Date/Time: 04/21/2025 21:00 EDT No growth at 7 days. Performing Locations R1: This test was performed at: [facility], [address] [place] [address], [address] [place] [address], [facility] Comment on above: Performed By: #### 1 [id number] #### [facility] [address] [place] [address] 04-22-2025 Note Microbiology PROCEDURE: Blood Culture Charcoal [R1] SOURCE: Blood BODY SITE: Hand R COLLECTED DATE/TIME: 04/14/2025 18:04 EDT RECEIVED DATE/TIME: 04/14/2025 18:41 EDT START DATE/TIME: 04/14/2025 18:41 EDT FREE TEXT SOURCE: Indu Slaughter, Rivas Griggs M.D., Rivas [place] FINAL REPORTS Final Report [] Verified Date/Time: 04/21/2025 21:00 EDT No growth at 7 days. Performing Locations R1: This test was performed at: [facility], [address] [place], [place] [address], [phone] [place] [address] Comment on above: Performed By: #### 1 [id number] #### [facility] [address] [place] [address] 04-21-2025 Note Microbiology PROCEDURE: Blood Culture Charcoal [R1] SOURCE: Blood BODY SITE: Hand L COLLECTED DATE/TIME: 04/14/2025 18:05 EDT RECEIVED DATE/TIME: 04/14/2025 18:40 EDT START DATE/TIME: 04/14/2025 18:40 EDT FREE TEXT SOURCE: Peripheral vein site #2 Indu Slaughter, Astrit Sergio Griggs M.D., Astrit H FINAL REPORTS Final Report [] Verified Date/Time: 04/21/2025 21:00 EDT No growth at 7 days. Performing Locations R1: This test was performed at: [facility], [address] [place] [address], [address] [place] [address] Comment on above: Performed By: #### 1 [id number] #### [facility] [address] [place] [address] 04-21-2025 Note Microbiology PROCEDURE: Blood Culture Charcoal [R1] SOURCE: Blood BODY SITE: Hand R COLLECTED DATE/TIME: 04/14/2025 18:04 EDT RECEIVED DATE/TIME: 04/14/2025 18:41 EDT START DATE/TIME: 04/14/2025 18:41 EDT FREE TEXT SOURCE: Peripheral vein site #1 Indu Slaughter, Rivas Griggs M.D., Astrit H FINAL REPORTS Final Report [] Verified Date/Time: 04/21/2025 21:00 EDT No growth at 7 days. Performing Locations R1: This [facility] performed at: [facility], [address] [place] [address], [address] [place] [address], [address] [place] [address] Comment on above: Performed By: #### 1 [id number] #### [facility] [address] [place] [address] 04-18-2025 Note GetWell Understands Education Yes GetWell Education Video Statins: Should You Take Them to Lower Your Risk? GetWell Learning Participants Patient [facility] 04-18-2025 Note GetWell Education Vi maria guadalupe After a Stroke: Your Self-Care Plan GetWell Learning Participants Patient GetWell Understands Education Yes [facility] 04-18-2025 Note GetWell Understands Education Yes GetWell Education Video After a Stroke: Taking an Antiplatelet GetWell Learning Participants Patient [facility] 04-18-2025 Note GetWell Education Vi maria guadalupe After a Stroke: Taking an Antiplatelet GetWell Learning Participants Patient GetWell Understands Education Yes [facility] 04-18-2025 Note GetWell Understands Education Yes GetWell Education Video Your Hospital Stay: Moving to Another Care Facility GetWell Learning Participants Patient [facility] 04-18-2025 Note GetWell Understands Education GetWell Education Video Stroke: Fast facts GetWell Learning Participants [facility] 04-18-2025 Note GetWell Understands Education GetWell Education Video Stroke: Fast facts GetWell Learning Participants [facility] 04-18-2025 Note GetWell Understands Education Yes GetWell Education Video After a Hospital Stay: Managing Appointments GetWell Learning Participants Patient [facility] 04-18-2025 Note GetWell Understands Education Yes GetWell Education Video Preventing Falls in the Hospital GetWell Learning Participants Patient [facility] 04-18-2025 Note GetWell Understands Education Yes GetWell Education Video Avoiding Infections in the Hospital GetWell Learning Participants Patient [facility] 04-18-2025 Note GetWell Learning Par ticipants Patient GetWell Understands Education Yes GetWell Education Video What Is a Stroke? [facility] 04-17-2025 Evaluation + Plan note Extrac fernando [...] patient is pending cardiac cath at [facility] towards the end of this [...] deep vein thrombosis (DVT) prophylaxis (Z79.899: Other skilled nursing (current) drug therapy) Resume Xarelto 11. History of DVT in adulthood (Z86.718: Personal history of other venous thrombosis and embolism) Xarelto Extracted from: Title:APSO Note-neurology Author:Nadir Quinones RN Date:6/3/25 ASSESSMENT: Acute to subacute embolic ischemic stroke. [...] deep vein thrombosis (DVT) prophylaxis (Z79.899: Other skilled nursing (current) drug therapy) 11. History of DVT in adulthood (Z86.718: Personal history of other venous thrombosis and embolism) Chronic constipation with overflow (K59.09: Other constipation) Extracted from: Title:Progress/SOAP Note Author:Hanna GUSTAFSON, [facility] Date:04/16/25 1. CVA (cerebrovascular acci dent) [...] deep vein thrombosis (DVT) prophylaxis (Z79.899: Other 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 helper termite (current) drug therapy) 11. History of DVT in adulthood (Z86.718: Personal history of other venous thrombosis and embolism) Chronic constipation with overflow (K59.09: Other constipation) Extracted from: Title:APSO Note Author:Roro URIARTE Date:04/16/25 PLAN: 1. CVA (cerebrovascular accident) (I63.9: [...] deep vein thrombosis (DVT) prophylaxis (Z79.899: Other 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 helper termite (current) drug therapy) Resume Xarelto 11. History [...] deep vein thrombosis (DVT) prophylaxis (Z79.899: Other 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 helper termite (current) drug therapy) 11. History of DVT in adulthood (Z86.718: Personal history of other venous thrombosis and embolism) Chronic constipation with overflow (K59.09: Other constipation) Extracted from: Title:Consult Note Author:Hanna GUSTAFSON, [facility] Rod e:04/15/25 1. CVA (cerebrovascular acci dent) [...] deep vein thrombosis (DVT) prophylaxis (Z79.899: Other skilled nursing (current) drug therapy) 10. History of DVT [...] deep vein thrombosis (DVT) prophylaxis (Z79.899: Other skilled nursing (current) drug therapy) Other obstructive and reflux uropathy (N13.8: Other obstructive and reflux uropathy) Pleural effusion (J90: Pleural effusion, not elsewhere classified) Extracted from: Title:Admission H & P Author:Layne VERDUGO DO Date:04/14/25 1. CVA (cerebrovascular acci dent) (I63.9: Cerebral infarction, unspecified) Interventional neurology was consulted from the emergency department at [facility]. They recommended patient started on [...] deep vein thrombosis (DVT) prophylaxis (Z79.899: Other skilled nursing (current) drug therapy) SCD, heparin Orders: albuterol, [...] erythema or exudate. - POA. will consult [facility]. bacitracin bid. Extracted from: Title:ED Note Author:Indu [...] Date:06/11/2025 11:40:00 AM Scheduled Provider:LU OLMEDO PA-C Location:[facility] Appointment Type:URO Office Visit [facility] 06-03-2025 NoteProgress Note-Physician Assessment/Plan PLAN: 1. CVA [...] patient is pending cardiac cath at [facility] towards the end of this [...] deep vein thrombosis (DVT) prophylaxis (Z79.899: Other 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 helper termite (current) drug therapy) Resume Xarelto 11. History [...] Lymph Auto: 7.1 % Low (04/17/25 06:01:00) Moffat Auto: 13.7 % (04/17/25 06:01:00) Eos Auto: 0.6 % (04/17/25 06:01:00) Basophil Auto: 0.6 % (04/17/25 06:01:00) Neutro Absolute: 7.7 E9/L High (04/17/25 06:01:00) Lymph Absolute: 0.7 E9/L Low (04/17/25 06:01:00) Moffat Absolute: 1.4 E9/L High (06 (more content not included)...[facility]Result Comment: Electronically Signed By: Anai URIARTE\.br\Date and Time Signed: 04/17/25 08:59 EDT\.br\Electronically Co-Signed By: Marc Fajardo DO\.br\Date and Time Co- Signed: 04/17/25 13:29 [id number] NoteProgress Note-Physician Assessment/Plan ASSESSMENT: Acute to subacute [...] deep vein thrombosis (DVT) prophylaxis (Z79.899: Other skilled nursing (current) drug therapy) 11. History of DVT [...] both correctly = 0 Open and close eyes/repair weaver release hand: Obeys both correctly = 0 [...] MPV: 9.1 fL (04/17/ (more content not included)...[facility] Comment on above:Result Comment: Electronically Signed By: Pati Quinones RN\.br\Date and Time Signed: 04/17/25 09:21 EDT\.br\Electronically Co- Signed By: Ruy Molina DO\.br\Date and Time Co-Signed: 04/17/25 10:46 EDT 04-16-2025 NoteProgress Note-Physician Subjective Patient off floor for MRI. I did discuss the echo findings with the patient family. Patient family was advised to follow-up with his outpatient treating melter operator. Patient melter operator showed be able to get access [...] Lymph Auto: 4.6 % Low (04/16/25 06:05:00) Moffat Auto: 10.8 % (04/16/25 06:05:00) Eos Auto: 0.2 % (04/16/25 06:05:00) Basophil Auto: 0.1 % (04/16/25 06:05:00) Neutro Absolute: 12.3 E9/L High (04/16/25 06:05:00) Lymph Absolute: 0.7 E9/L Low (04/16/25 06:05:00) Moffat Absolute: 1.6 E9/L High (04/16/25 06:05:00) Eos [...] mg/dL High (04/16/25 11:23:00) POC Device SN: [id number] (04/16/25 11:23:00) POC User ID: [id number] (04/16/25 11:23:00) POC Username: WICHO NORRIS (04/16/25 [...] deep vein thrombosis (DVT) prophylaxis (Z79.899: Other 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 helper termite (current) drug therapy) 11. History of DVT [...] loratadine 10 mg Tab, (more content not included)...[facility] Comment on above:Result Comment: Electronically Signed By: Hanna GUSTAFSON, Rebeca\.br\Date and Time Signed: 04/16/25 12:15 [id number] NoteProgress Note-Physician Assessment/Plan PLAN: 1. CVA (cerebrovascular [...] deep vein thrombosis (DVT) prophylaxis (Z79.899: Other 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 helper termite (current) drug therapy) Resume Xarelto 11. History [...] Lymph Auto: 4.6 % Low (04/16/25 06:05:00) Moffat Auto: 10.8 % (04/16/25 06:05:00) Eos Auto: 0.2 % (04/16/25 06:05:00) Basophil Auto: 0.1 % (04/16/25 06:05:00) Neutro Absolute: 12.3 E9/L High (04/16/25 06:05:00) Lymph Absolute: 0.7 E9/L Low (04/16/25 06:05:00) Moffat Absolute: 1.6 E9/L High (04/16/25 06:05:00) Eos Absolute: 0 E9/L (04/16/25 06:05:00) Basophil Absolute: 0 E9/L (04/16/25 06:05:00) Glucose Lvl: 212 mg/dL High (04/16/25 06:05:00) BUN: 33 mg/dL High (04/16/25 06:05:00) Creatinine: 1.7 mg/dL High (04/16/25 06:05:00) eGFR: 39 mL/min/1.73 (more content not included)...[facility] Comment on above:Result Comment: Electronically Signed By: [...] be managed by a specialist called an jackerman. Type 2 diabetes may be treated by [...] meet with a certified diabetes care and adult remedial education instructor? What diabetes medicines do I need, and when should I take them? What equipment will I need to manage my diabetes at home? How often do I need to check my blood glucose? Where can I find a support group for people with diabetes? What number can I call if I have questions? When is my next appointment? General instructions Take ttpe-xvs-[id number] and prescription medicines only as told by your health care provider. Keep all follow-up visits. This is important. Where to find more information For help and guidance and for more information about diabetes, please visit: [place] [employer] Association (ADA): www.diabetes.org [place] [employer] of Diabetes Care and Education Specialists [...] provider. Document Revised: 01/26/2022 Document Reviewed: 01/26/2022 [employer] Patient Education 2023 [employer] 04/16/2025 09:29:43 Atrial Fibrillation Atrial Fibrillation Atrial [...] electrical signals of the heart. An ambulatory cardiac catheterization technician to record your heart's activity for a [...] provider. Document Revised: 07/21/2023 Document Reviewed: 07/21/2023 [employer] Patient Education 2023 [employer] 04/16/2025 09:29:43 Core Measures: Stroke (Cerebrovascular Accident) [facility], (Custom) Stroke (Cerebrovascular Accident) A [...] factors for stroke, work with your health small animal caretaker to control them. High Blood Pressure: High [...] Please call [facility]oking Cessation Program at [phone] ([facility]), or [phone], ext. [phone] Diabetes: Work with your healthcare professional to [...] cholesterol diet, you can call our [facility] clinic director at [phone] Ext. [phone]. The goal for total cholesterol is less [...] your risk of stroke with your health small animal caretaker. TREATMENT TIME IS OF THE ESSENCE! Medications [...] Measures will be takento prevent short and 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 helper termite complications, including aspiration pneumonia, blood clots in [...] for more information on strokes, log onto www.[facility].[employer] or www.strokeassociation.org or call the [place] [employer] at . Revised 11/2018 Follow Up Care 04/14/2025 16:54:01 With:Neurology Address: [phone] When:2 to 4 weeks Comments:Call for followup appointment [facility] 06-02-2025 NoteEchocardiology Procedure Exam Date/Time Accession # Ordering Echo Transthoracic 04/16/2025 10:06 EDT [id number] Felton URIARTE CPT code 55080 13299 Reason for Exam (Echo Transthoracic Complete) CVA Report [facility] [address] [place] [address] Adult Echocardiogram Report Name: NADIR BETH Study Date: 04/16/2025 09:15 AM BP: 172/80 mmHg Patient Location: [id number] [facility] Bed(s) [facility] HR: 94 : 1940 Gender: Male Height: 71.5 in Age: 85 yrs Ethnicity: T Weight: 168 lb Reason For Study: CVA BSA: 2.0 m2 History: AFIB, HTN, CKD, DM, CHF Ordering Physician: Anai CANTU Performed By: Rabia Heredia, ALEC Interpretation Summary The left ventricle is normal [...] Rebeca Ferreira MD Transcribed by: ROBER Technologist: [facility]06-02-2025 Note Progress Note-Physician Assessment/Plan ASSESSMENT: His [...] deep vein thrombosis (DVT) prophylaxis (Z79.899: Other skilled nursing (current) drug therapy) 11. History of DVT [...] Both incorrect = 1 Open and close eyes/repair weaver release hand: Obeys both correctly = 0 [...] Lymph Auto: 4.6 % Low (04/16/25 06:05:00) Moffat Auto: 10.8 % (04/16/25 06:05:00) Eos Auto: 0.2 % (04/16/25 06:05:00) Basophil Auto: 0.1 % (04/16/25 06:05:00) Neutro Absolute: 12.3 E9/L High (04/16/25 06:05:00) Lymph Absolut (more content not included)...[facility]Comment on above:Result Comment: Electronically Signed By: Preethi Lancaster RN\.br\Date and Time Signed: 04/16/25 07:32 EDT\.br\Electronically Co-Signed By: Ruy Molina DO\.br\Date and Time Co-Signed: 04/16/25 09:47 [id number] Note Interdisciplinary Note - PT PT Evaluation done this date. Pt. with on AM-PAC this date. Min Ax1 and FWW with all activityfor safety. Recommend SNF at this time, will continue to follow.[facility]06-01-2025 NoteInterdisciplinary Note - PT PT evaluation order received. Pt has an MRI still pending and as per nursing should be on hold for today. Will attempt tomorrow.[facility] 04-15-2025 NoteConsultation Note Chief Complaint AMS History [...] Patient's daughter Valerie is healthcare power of commonwealth attorney. She was on the phone. She states that for the time being she would like patient to be a full code. She will discuss this with her family and notify us if she makes any changes. Family does note that patient was admitted for a stroke at [facility] about 6 weeks ago. They state [...] is obtained. He does follow-up with outpatient melter operator. Review of Systems As per HPI [...] deep vein thrombosis (DVT) prophylaxis (Z79.899: Other skilled nursing (current) drug therapy) 10. History of DVT [...] hernia repair, Tonsillectomy. Medications (more content not included)...[facility] HealthComment on above:Result Comment: Electronically Signed By: Rebeca Ferreira MD\.mary\Date and Time Signed: 04/15/25 09:39 [id number] NoteConsultation Note Chief Complaint AMS Reason for [...] was admitted for stroke workup at the [facility] about a month and a half [...] Both incorrect = 2 Open and close eyes/repair weaver release hand: Obeys both correctly = 0 [...] 9. DM2 (diabetes elio (more content not included)...[facility] Comment on above:Result Comment: Electronically Signed By: Stephanie Mello RN\.br\Date and Time Signed: 04/15/25 06:55EDT\.br\Electronically Co-Signed By: Ruy Molina DO\.br\Date and Time Co-Signed: 04/15/25 09:37 [id number] Note History and Physical Basic Information Admit [...] Patient's daughter Valerie is healthcare power of commonwealth attorney. She was on the phone. She states that for the time being she would like patient to be a full code. She will discuss this with her family and notify us if she makes any changes. Family does note that patient was admitted for a stroke at [facility] about 6 weeks ago. They state [...] other details. NIH Stroke Scale/Score (NIHSS) from [employer] on 04/14/2025 All calculations should be rechecked [...] Lymph Auto: 7.8 % Low (04/14/25 17:08:00) Moffat Auto: 9.9 % (04/14/25 17:08:00) Eos Auto: 1.5 % (04/14/25 17:08:00) Basophil Auto: 0.8 % (04/14/25 17:08:00) Neutro Absolute: 6.5 E9/L (04/14/25 17:08:00) Lymph Absolute: 0.6 E9/L Low (04/14/25 17:08:00) Moffat Absolute: 0.8 E9/L (04/14/25 17:08:00) Eos Absolute: 0.1 E9/L (04/14/25 17:08:00) Basophil Absolute: 0.1 E9/L (04/14/25 17:08:00) PT: 11 second(s) (04/14/25 17:08:00) INR: 0.98 (04/14/25 17:08:00) PTT: 33.3 second(s) (04/14/25 17:08:00) Glucose Lvl: 245 mg/dL High (04/14/25 17:08:00) BUN: 28 mg/dL High (04/14/25 17:08:00) Creatinine: 1.8 mg/dL High (04/14/25 17:08:00) eGFR: 36 mL (more content not included)...[facility] HealthComment on above:Result Comment: Electronically Signed By: Layne VERDUGO DO\Date and Time Signed: 04/15/25 02:30 [id number] NoteHistory and Physical Basic Information Admit Date/Time:04/14/2025 [...] Patient's daughter Valerie is healthcare power of commonwealth attorney. She was on the phone. She states that for the time being she would like patient to be a full code. She will discuss this with her family and notify us if she makes any changes. Family does note that patient was admitted for a stroke at [facility] about 6 weeks ago. They state [...] other details. NIH Stroke Scale/Score (NIHSS) from [employer] on 04/14/2025 All calculations should be rechecked [...] Lymph Auto: 7.8 % Low (04/14/25 17:08:00) Moffat Auto: 9.9 % (04/14/25 17:08:00) Eos Auto: 1.5 % (04/14/25 17:08:00) Basophil Auto: 0.8 % (04/14/25 17:08:00) Neutro Absolute: 6.5 E9/L (04/14/25 17:08:00) Lymph Absolute: 0.6 E9/L Low (04/14/25 17:08:00) Moffat Absolute: 0.8 E9/L (04/14/25 17:08:00) Eos Absolute: 0.1 E9/L (04/14/25 17:08:00) Basophil Absolute: 0.1 E9/L (04/14/25 17:08:00) PT: 11 second(s) (04/14/25 17:08:00) INR: 0.98 (04/14/25 17:08:00) PTT: 33.3 second(s) (04/14/25 17:08:00) Glucose Lvl: 245 mg/dL High (04/14/25 17:08:00) BUN: 28 mg/dL High (04/14/25 17:08:00) Creatinine: 1.8 mg/dL High (04/14/25 17:08:00) eGFR: 36 mL (more content not included)...[facility] HealthComment on above:Result Comment: Electronically Signed By: Layne VERDUGO DO\.mary\Date and Time Signed: 04/14/25 22:32 [id number] History of Present illness Narrative* Blaise Chicas DPM - 04/12/2025 11:20 AM EDT Patient: Nadir Hamilton Kirit : 1940 PCP: Van Youssef MD SUBJECTIVE Nadir Beth 85 y.o. presents today for follow up [...] Partner Violence: Unknown (01/06/2024) Received from [facility] Safety & Environment Fear [...] and negative PT pedal pulses NEURO: 5.07 [place] monofilament test diminished to digits and forefoot bilaterally 125Hz tuning fork diminished to 1st MPJ bilaterally ORTHO: Positive pain on palpation to nails 1 through 10 Minimal pain on palpation of right foot lesion ASSESSMENT 1. Verruca plantaris 2. Foot pain, right 3. Diabetes mellitus due to underlying condition with diabetic polyneuropathy, unspecified whether 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 helper termite insulin use ([facility]) 4. 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 History of Present Illness, Associated Treatments and Results - Dx (JOSIAH) Tx BiPAP @ 31/10 AEs Hx JOSIAH - (Per Dr. John, [facility]). Failed Semeiology Circadian Noct oxim PSG _ ([place]) - _ PAPT ([place]) - AHI=8.1 @ 31/10 (max pressure) MSLT [...] UBOs Tx ASA AEs Hx Recent adm [place] for confusion. Now baseline. Images rev'd. No [...] BLADDER HERNIA REPAIR 1979 RENAL ARTERY STENT 2015 stents kidney Allergies Allergen Reactions Iodinated Contrast [...] ? [address] ? [place] [address] ? ? fax Neurology ? Clinical Neurophysiology ? Epilepsy ? Sleep Disorders ? Clinical Informatics documented in this encounterFreeman Health [id number] NoteUT Cardiology - [facility] Subjective Nadir Beth is a 85 y.o. year old male patient being seen for follow up MARK. He was then admitted to [facility] for CVA and switched from Eliquis [...] disease, without long-term current use of insulin ([facility]/H[facility]) Stage 3 chronic kidney disease ([facility]) Sleep apnea Pulmonary edema Primary hypertension Dyspnea [...] bladder) Post-void dribbling Pulmonary heart disease, unspecified ([facility]) Family History Problem Relation Name Age of [...] diuretic therapy. He was admitted to the [facility] in August 2022 due to hyponatremia, hyperkalemia and acute kidney injury, leukocytosis secondary to COVID-19 causing dehydration. I saw him on 05/24/2023 and the office and he had significant evidence of volume overload by exam and echocardiogram. I intensified his diuretic regimen. He ended up getting admitted to the [facility] with acute heart failure exacerbation and [...] On 02/14/2025 he was admitted to the [facility] with altered mental status. brain MRI showed multiple infarcts. He was seen by cardiology consult and Eliquis was changed to Xarelto. He then underwent a transesophageal echocardiogram that showed no evidence of intra cardiac thrombi. The aortic valve stenosis appeared to be severe. He was seen in the emergency room at the [facility] on 03/08/2025 with chest pain episode. [...] Review of Systems Cardiovascu (more content not included)...[facility] 02-28-2025 NotePatient: Nadir Hamilton Kirit Procedure Information Date/Time: 02/28/25 1230 Procedure: TRANSESOPHAGEAL ECHO (MARK) Location: [facility] Vascular Lab Clinical information reviewed: Allergies Meds Physical Exam Airway Mallampati: III Cardiovascular Dental Pulmonary Abdominal Anesthesia Plan ASA 3 other (Conscious sedation) intravenous induction Anesthetic plan and risks discussed with patient. Use of blood products discussed with patient who consented to blood products. Plan discussed with attending and fellow. Additional Equipment RequestsUnUniversity [facility]als St[facility]25 Note Attestation with edits by Ruthie Linda MD at 01/03/2025 10:36 PM I saw, interviewed, examined and evaluated the patient with Nephrology fellow Dr. Jeff Hutton. I participated in the medical management of the patient. I reviewed the fellow's note and agree with the fellow's documentation in the note. Ruthie Linda MD Faculty, Division of Nephrology, Department of Medicine, [facility] [employer]. [facility] Patient: Nadir Beth; 84 y.o. Visit date: 01/03/25 Reason for today's visit: Follow up for CKD stage 3, Hypertension, Edema/ Fluid overload, and Electrolytes disturbances SUBJECTIVE: BACKGROUND: Nadir Beth is a 84 y.o. male has a past medical history of Atrial fibrillation ([facility]), CHF (congestive heart failure) ([facility]), Chronic kidney disease, COPD (chronic obstructive pulmonary disease) ([facility]), Coronary artery disease, Diabetes mellitus ([facility]), Heart valve disease, Hypertension, Pericardial effusion, and Sleep apnea. History of paroxysmal atrial fibrillation maintained on anticoagulation with Eliquis, aortic stenosis, renal artery stenosis, and hypertension. He had stenting of the left renal artery from the left radial approach on 05/01/2015 (Express SD 6 mm x 18 mm stent). He was admitted to the [facility] in August 2022 due to hyponatremia, [...] tablet by mouth in (more content not included)...[facility]01-30-2025 NoteUT Cardiology - [facility] Subjective Nadir Beth is a [...] diuretic therapy. He was admitted to the [facility] in August 2022 due to hyponatremia, hyperkalemia and acute kidney injury, leukocytosis secondary to COVID-19 causing dehydration. I saw him on 05/24/2023 and the office and he had significant evidence of volume overload by exam and echocardiogram. I intensified his diuretic regimen. He ended up getting admitted to the [facility] with acute heart failure exacerbation and [...] Physical Exam Constitutional: Appear (more content not included)...[facility] 12-04-2024 Hospital Discharge instructions Patient Education [...] urethra. Follow these instructions at home: Take aphj-ivm-davwlhr and prescription medicines only as told by [...] provider. Document Revised: 05/20/2022 Document Reviewed: 05/20/2022 [employer] Patient Education 2023 [employer]. Follow Up Care 10/23/2024 15:10:45 With:MARQUIS LOUISE MD, URL Address: When:Within 6 Month(s) Comments:Can see DIAMANTE, w/FABIO [facility] 01-20-2025 NotePatient Education Urology Benign Prostatic Hyperplasia [...] Follow these instructions at home: ??? Take wcxl-ctu-pezqxiz and prescription medicines only as told by [...] symptoms do not get (more content not included)...[facility]01-16-2025 History of Present illness Narrative* Blaise Chicas, LUIS E - 11/30/2024 8:40 AM EST Patient: Nadir Hamilton Kirit : 1940 PCP: [...] on file Intimate Partner Violence: Unknown (01/06/2024) [place] Safety & Environment Fear of Current or [...] and negative PT pedal pulses NEURO: 5.07 [place] monofilament test diminished to digits and forefoot bilaterally 125Hz tuning fork diminished to 1st MPJ bilaterally ORTHO: Positive pain on palpation to nails 1 through 10 Minimal pain on palpation of right foot lesion ASSESSMENT 1. Verruca plantaris 2. Foot pain, right 3. Diabetes mellitus due to underlying condition with diabetic polyneuropathy, unspecified whether 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 helper termite insulin use ([facility]) 4. Pain due to onychomycosis [...] Blaise Chicas DPM documented in this encounterFreeman Health [id number] Hospital Discharge instructions Patient Education 11/02/2024 08:25:18 [...] Follow these instructions at home: Medicines Take wvcy-nsw-qanzcjd and prescription medicines only as told by [...] or the blood stops without treatment. Take omhl-vbr-qxapzcb and prescription medicines only as told by your health care provider. Drink enough fluid to keep your urine pale yellow. This information is not intended to replace advice given to you by your health care provider. Make sure you discuss any questions you have with your health care provider. Document Revised: 07/02/2021 Document Reviewed: 07/02/2021 [employer] Patient Education 2023 [employer]. Follow Up Care 10/30/2024 15:26:17 With:ADRIAN GUSTAFSON, ADAN CHO Address: When: Unknown [facility] 12-19-2024 NotePatient Education Urology Hematuria, Adult Hematuria [...] these instructions at home: Medicines ??? Take ooqg-klc-ftteurj and prescription medicines only as told by [...] the blood stops without treatment. ??? Take zaob-meh-hqatmpk and prescription medicines only as told by your health care provider. ??? Drink enough fluid to keep your urine pale yellow. This information is not intended to replace advice given to you by your health care provider. Make sure you discuss any questions you have with your health care provider. Document Revised: 07/02/2021 Document Reviewed: 07/02/2021 [employer] Patient Education ? 2023 [employer].[facility] 10-23-2024 Hospital Discharge instructions Patient Education 10/23/2024 [...] urethra. Follow these instructions at home: Take muqa-yzv-daudfqc and prescription medicines only as told by [...] provider. Document Revised: 05/20/2022 Document Reviewed: 05/20/2022 [employer] Patient Education 2023 [employer]. [facility] 12-09-2024 NotePatient Education Urology Benign Prostatic Hyperplasia [...] Follow these instructions at home: ??? Take anaw-nvp-zegjoid and prescription medicines only as told by [...] symptoms do not get (more content not included)...[facility]11-18-2024 NotePatient Education Urology Benign Prostatic Hyperplasia Benign [...] Follow these instructions at home: ??? Take mnkt-zor-kfoqiag and prescription medicines only as told by [...] symptoms do not get (more content not included)...[facility]11-11-2024 Hospital Discharge instructions Patient Education 09/25/2024 13:21:41 [...] urethra. Follow these instructions at home: Take qqaf-eon-tklzowe and prescription medicines only as told by [...] provider. Document Revised: 05/20/2022 Document Reviewed: 05/20/2022 [employer] Patient Education 2023 [employer] Follow Up Care 09/01/2024 09:55:03 With:MARQUIS LOUISE Address: [address] [place] [phone] Business (1) When: Unknown Comments:Follow-up in the office in 2 weeks to discuss next plan With:MARQUIS LOUISE Address: [address] [place] [phone] Business (1) When: Unknown [facility] 11-11-2024 Evaluation + Plan noteExtracted from: Title:Cysto, TRUS Author:CHRISSIE LOUISE MD Date:09/25/24 Impression and Plan Counseled: Family. Future Appointments Appointment Date:10/02/2024 11:00:00 AM Scheduled Provider:MARQUIS LOUISE MD Location:[facility] Appointment Type:URO Office Visit Future Scheduled Tests Laboratory* CBC w/ Auto Diff 10/01/23 * Comprehensive Metabolic Panel 10/01/23 * Thyroid Stimulating Hormone 10/01/23 [facility] 11-11-2024 NotePatient Education Urology Benign Prostatic [...] Follow these instructions at home: ??? Take cora-zqh-qefzedt and prescription medicines only as told by [...] symptoms do not get (more content not included)...[facility]10-31-2024 History of Present illness Narrative* Blaise Chicas, DPM - 09/14/2024 8:40 AM EDT Patient: Nadir Hmailton margonereida : 1940 PCP: Van Youssef MD SUBJECTIVE [...] keratosis Basal cell carcinoma COVID-19 11/22/2020 Diabetes ([facility]) Medications: Current Outpatient Medications: acyclovir (Zovirax) 400 [...] Partner Violence: Unknown (01/06/2024) Received from [facility] [place] Safety & Environment Fear [...] and negative PT pedal pulses NEURO: 5.07 [place] monofilament test diminished to digits and forefoot bilaterally 125Hz tuning fork diminished to 1st MPJ bilaterally ORTHO: Positive pain on palpation to nails 1 through 10 Minimal pain on palpation of right foot lesion ASSESSMENT 1. Verruca plantaris 2. Foot pain, right 3. Diabetes mellitus due to underlying condition with diabetic polyneuropathy, unspecified whether 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 helper termite insulin use ([facility]) 4. Pain due to onychomycosis [...] Blaise Chicas DPM documented in this encounterFreeman Health [id number] History of Present illness Narrative* Rodney Joy [...] Forehead, Right Hand - Posterior, Right [place], Right Wrist - Posterior Erythematous scaly papules [...] limited to risks of scarring, darker or receiving operator pigmentary changes, recurrence, incomplete removal and [...] Forehead, Right Hand - Posterior, Right [place], Right Wrist - Posterior 3. Lentigines (2) [...] Visit: 1 year documented in this encounterFreeman Health [id number] Telephone encounter Note* Telephone Encounter - Sammy Esposito - 08/17/2024 11:54 AM EDT Spoke with advised her of Dr. Montoya's answer and if he had any issues to call back. Freeman Health [id number] Miscellaneous Notes* Telephone Encounter - Sammy Esposito [...] at the table. documented in this encounterFreeman Health [id number] Telephone encounter Note* Telephone Encounter - Sammy [...] after he fell asleep at the table. Freeman Health SystemMhlrfkowvq14-03-6015 Hospital Discharge instructions Patient Education 08/08/2024 10:44:33 [...] including vitamins, herbs, eye drops, creams, and cjlc-yxp-npvbdfz medicines. Any problems you or family members [...] provider tells you to take them. Taking xskb-fiu-mqoajsd medicines, vitamins, herbs, and supplements. Tests You [...] Follow these instructions at home: Medicines Take swgv-ned-rpqfwad and prescription medicines only as told by [...] provider. Document Revised: 07/15/2022 Document Reviewed: 06/13/2021 [employer] Patient Education 2023 [employer]. Follow Up Care 08/07/2024 08:55:26 With:MARQUIS LOUISE MD, URL Address: When: Unknown [facility] 09-24-2024 NotePatient Education Urology Cystoscopy Cystoscopy is [...] including vitamins, herbs, eye drops, creams, and qkbk-nby-qlhoqhb medicines. ? Any problems you or family [...] tells you to take them. ? Taking rmyw-ufb-bgewdfx medicines, vitamins, herbs, and supplements. Tests You [...] these instructions at home: Medicines ? Take conv-jcx-inwapwq and prescription medicines only as told by [...] your health care provider, (more content not included)...[facility]09-19-2024 History of Present illness Narrative* Blaise Chicas, DPM - 08/03/2024 8:50 AM EDT [...] keratosis Basal cell carcinoma COVID-19 11/22/2020 Diabetes ([facility]) Medications: Current Outpatient Medications: acyclovir [...] Partner Violence: Unknown (01/06/2024) Received from [facility] [place] Safety [employer] [place] Fear [...] and negative PT pedal pulses NEURO: 5.07 [place] monofilament test diminished to digits and [...] daily Blaise Chicas DPM documented in this encounterFreeman Health [id number] History of Present illness Narrative* Barrie Montoya [...] [facility]Es [facility] Failed Semeiology Circadian Noct oxim PSG _ ([place]) - _ PAPT ([place]) - AHI=8.1 @ 31/10 (max pressure) MSLT [...] Barrie Montoya M.D. documented in this encounterFreeman Health [id number] History of Present illness Narrative* Blaise Marroquin Dao, DPM - 07/20/2024 8:30 AM EDT Patient: [...] Partner Violence: Unknown (01/06/2024) Received from [facility] [place] Safety [facility] Environment Fear [...] and negative PT pedal pulses NEURO: 5.07 [place] monofilament test diminished to digits and [...] Blaise Chicas DPM documented in this encounterFreeman Health [id number] History of Present illness Narrative* Blaise Chicas DPM - 07/06/2024 8:40 AM EDT Patient: Nadir Beth : 1940 PCP: Van Youssef MD SUBJECTIVE Patient presents today for follow-up of dry skin and fissures to feet and has been using prescribedor recommended pkfj-xzf-twlvtkd cream with positive improvement. Patient presents today [...] keratosis Basal cell carcinoma COVID-19 11/22/2020 Diabetes ([facility]) Medications: Current Outpatient Medications: acyclovir (Zovirax) 400 [...] Partner Violence: Unknown (01/06/2024) Received from [facility] [place] [employer] [place] Fear [...] and negative PT pedal pulses NEURO: 5.07 [place] monofilament test diminished to digits and forefoot bilaterally 125Hz tuning fork diminished to 1st MPJ bilaterally ORTHO: Positive pain on palpation to nails 1 through 10 Minimal pain on palpation of right foot lesion ASSESSMENT 1. Verruca plantaris 2. Foot pain, right 3. Diabetes mellitus due to underlying condition with diabetic polyneuropathy, unspecified whether 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 helper termite insulin use ([facility]) 4. Onychomycosis 5. Toe pain, [...] Blaise Chicas DPM documented in this encounterFreeman Health [id number] NoteCompreNorthwest [facility] Center [facility] Patient: Nadir Beth; 84 y.o. Visit date: 07/05/24 Reason for today's visit: Follow up for CKD stage 3, Hypertension, Edema/ Fluid overload, and Electrolytes disturbances SUBJECTIVE: BACKGROUND: Nadir Beth is a 84 y.o. male has a past medical history of Atrial fibrillation ([facility]), CHF (congestive heart failure) ([facility]), Chronic kidney disease, COPD (chronic obstructive pulmonary disease) ([facility]), Coronary artery disease, Diabetes mellitus ([facility]), Heart valve disease, Hypertension, Pericardial effusion, and Sleep apnea. History of paroxysmal atrial fibrillation maintained on anticoagulation with Eliquis, aortic stenosis, renal artery stenosis, and hypertension. He had stenting of the left renal artery from the left radial approach on 05/01/2015 (Express SD 6 mm x 18 mm stent). He was admitted to the [facility] in August 2022 due to hyponatremia, [...] crush or chew. p (more content not included)...[facility]11-30-2023 Hospital Discharge instructions Patient Education 10/14/2023 [...] as fried or sweet foods. These include mongolian fries, hamburgers, cookies, candies, and soda. Drink enough fluid to keep your urine pale yellow. General instructions Exercise regularly or as told by your health care provider. Try to do 150 minutes of moderate exercise each week. Use the bathroom when you have the urge to go. Do not hold it in. Take xzez-ucq-orvjfym and prescription medicines only as told by [...] to keep your urine pale yellow. Take zqrg-vol-ikzsfwn and prescription medicines only as told by your health care provider. This includes any fiber supplements. This information is not intended to replace advice given to you by your health care provider. Make sure you discuss any questions you have with your health care provider. Document Revised: 09/18/2020 Document Reviewed: 09/18/2020 [employer] Patient Education 2022 [employer]. Follow Up Care 10/01/2023 12:57:46 With:Nereyda Gomez CNP Address: When:1 month [facility] 11-17-2023 Hospital Discharge instructions [...] Bulgur wheat. Millet. Quinoa. Bran muffins. Popcorn. [place] wafer crackers. Meats and other proteins [place] beans, kidney beans, and mendez beans. Soybeans. [...] Cream cheese. Sour cream. Fats and oils Harbine. Beverages Soft drinks. Other foods Cakes and [...] provider. Document Revised: 03/06/2021 Document Reviewed: 03/06/2021 [employer] Patient Education 2022 [employer]. Follow Up Care 09/20/2023 08:43:45 With:Nereyda Gomez CNP Address:Unknown When: Unknown [facility] 11-17-2023 Evaluation + Plan note Future Scheduled Tests Laboratory* CBC w/ Auto Diff 10/01/23 * Comprehensive Metabolic Panel 10/01/23 * Thyroid Stimulating Hormone 10/01/23 [facility] 07-27-2023 Hospital Discharge instructions Patient Education 06/10/2023 [...] hard liquor (44 mL). General instructions Take saaj-stv-nnlguds and prescription medicines only as told by [...] provider. Document Revised: 02/19/2021 Document Reviewed: 02/19/2021 [employer] Patient Education 2022 [employer]. Follow Up Care 04/13/2023 14:39:27 With:Nereyda Gomez CNP Address: When:3 months [facility] 05-30-2023 Hospital Discharge instructions [...] including vitamins, herbs, eye drops, creams, and dypg-vaq-nrenjcj medicines. Any problems you or family members [...] provider tells you to take them. Taking jydm-obl-thkflby medicines, vitamins, herbs, and supplements. General instructions [...] provider. Document Revised: 10/26/2022 Document Reviewed: 06/24/2022 [employer] Patient Education 2022 [employer]. Follow Up Care 04/09/2023 11:27:16 With:Nereyda Gomez CNP Address: When:1 month [facility] 09-03-2022 NoteEXAM: US KARI [...] Electronically authenticated by: PREETI ROBERTS Date: 2022-07-18 09:05[facility]07-26-2022 Hospital Discharge instructions Patient Education [...] serving. Talk with a diet and nutritional services host (dietitian) if you have questions about specific [...] Bulgur wheat. Millet. Quinoa. Bran muffins. Popcorn. [place] wafer crackers. Meats and other proteins [place], kidney, and mendez beans. Soybeans. Split peas. [...] Cream cheese. Sour cream. Fats and oils Harbine. Beverages Soft drinks. Other foods Cakes and [...] 11/01/2006 Document Revised: 09/05/2018 Document Reviewed: 09/05/2018 [employer] Patient Education 2020 [employer] 06/09/2022 10:13:34 Hemorrhoids Hemorrhoids Hemorrhoids are [...] 3 times a day. General instructions Take fphm-uvd-chjgxqw and prescription medicines only as told by [...] 10/29/2001 Document Revised: 03/29/2020 Document Reviewed: 03/23/2019 [employer] Patient Education 2020 [employer]. 06/09/2022 10:13:31 Diverticulosis Diverticulosis Diverticulosis is a [...] overweight. Not getting enough exercise. Smoking. Taking ixjq-bga-gnpthst pain medicines, like aspirin and ibuprofen. Having [...] care provider or your diet and nutritional services host (dietitian). ?Take a fiber supplement or probiotic, if your health care provider approves. Take irnj-pte-zdusxkt and prescription medicines only as told by [...] 07/29/2005 Document Revised: 10/14/2018 Document Reviewed: 09/20/2017 [employer] Patient Education 2020 [employer] 06/09/2022 10:13:30 Colon Polyps Colon Polyps [...] 07/28/2005 Document Revised: 02/16/2019 Document Reviewed: 02/16/2019 [employer] Patient Education [employer] Follow Up Care 05/13/2022 14:18:17 With:Nereyda Gomez CNP Address: When:1 year only if needed [facility] [id number] Evaluation + Plan noteExtracted from: Title:Anesthesia post op endo Author:Jeffrey Gr MD Date:05/11/22 Plan Transfer/ Discharge: Patient can be discharged from PACU when criteria met. Condition good. Extracted from: Title:Anesthesia Pre-Op endo 2 Author:Jeffrey Gr MD Date:05/11/22 Plan [place] [employer] Anesthesiologists (ASA) physical status classification: [...] heart and lungs, allergic reactions, and .. [facility]06-27-2022 Hospital Discharge instructions Patient Education [...] 07/28/2005 Document Revised: 02/16/2019 Document Reviewed: 02/16/2019 [employer] Patient Education 2020 [employer]. 05/11/2022 11:13:39 Diverticulosis MAGR (CUSTOM) Diverticulosis Many [...] unsweetened, w/added ascorbic acid 1 cup 0.5 Chenoa 1 cup 0.7 Vegetables Cooked Green beans 1 cup 4.0 Carrots 1/2 cup sliced 2.3 Peas 1 cup 8.8 Potato (baked, with skin) 1 medium potato 3.8 Raw Acra (with peel) 1 cucumber 1.5 Lettuce 1 [...] 8.7 Peanuts 1/2 cup 7.9 Chart from [employer] 2013. SEEK IMMEDIATE MEDICAL CARE IF: You [...] of Agriculture (USDA) National Nutrient Database at: http://www.Last Second Tickets.usda.gov/fnic/foodcomp/search/ Created using data from the USDA National Nutrient Database for Standard Reference. Available at http://www.Last Second Tickets.Preen.Me.gov/fnic/foodcomp/search/. Information adapted from: [facility] Patient Information 2009 [employer]. [employer]ell[employer] 2012 http://www.DialMyApp/contents/vavfvvropgdo-gfjzjyx-mvdoul-the-basics Follow Up Care 03/31/2022 10:27:32 With:Napoleon NOVA Address: [address] [place] [address]. [address] [place] [address] Business (1) When: Unknown Comments:office will call for follow up [facility]05-17-2022 Hospital Discharge instructions Patient Education [...] including vitamins, herbs, eye drops, creams, and kvwk-zzx-keicryc medicines. Any problems you or family members [...] 10/29/2001 Document Revised: 08/24/2018 Document Reviewed: 01/12/2017 [employer] Patient Education 2020 [employer]. Follow Up Care 03/23/2022 12:11:50 With:Nereyda Gomez CNP Address: When:1 month [facility] Evaluation + Plan note Future Appointments Appointment Date:05/25/2022 08:45:00 AM Scheduled Provider: Location:[facility] Appointment Type:Surgery FT [facility] Evaluation + Plan note Future Appointments Appointment Date:06/10/2023 10:40:00 AM Scheduled Provider:Nereyda Gomez CNP Location:[facility] App[facility]ment [facility] Follow Up Future Scheduled Tests Laboratory* Fecal WBC Lactoferrin 04/13/23 * Giardia lamblia, Direct Detection EIA 04/13/23 * O & P Exam, Routine 04/13/23 * Clostridium Difficile PCR 04/13/23 * Enteric Panel by PCR 04/13/23 [facility] Evaluation + Plan note Future Appointments Appointment Date:06/10/2023 10:40:00 AM Scheduled Provider:Nereyda Gomez CNP Location:[facility] Appointment Type:[facility] Follow Up Diagnostic Tests Pending * O & P Exam, Routine 04/15/23 * Giardia lamblia, Direct Detection EIA 04/15/23 [facility]ments Appointment Date:09/13/2023 10:40:00 AM Scheduled Provider:Nereyda Gomez CNP Location:[facility] Appointment Type:[facility] Follow Up [facility] Evaluation + Plan note Future Appointments Appointment Date:10/14/2023 02:20:00 PM Scheduled Provider:Nereyda Gomez CNP Location:[facility] Appointment Type:[facility] Follow Up Future Scheduled Tests Laboratory* CBC w/ Auto Diff 10/01/23 * Comprehensive Metabolic Panel 10/01/23 * Thyroid Stimulating Hormone 10/01/23 [facility] evaluation + Plan note Future Appointments Appointment Date:12/09/2023 02:00:00 PM Scheduled Provider:Nereyda Gomez CNP Location:[facility] Appointment Type:[facility] Follow Up Future Scheduled Tests Laboratory* CBC w/ Auto Diff 10/01/23 * Comprehensive Metabolic Panel 10/01/23 * Thyroid Stimulating Hormone 10/01/23 [facility] Evaluation + Plan note Future Appointments Appointment Date:10/26/2024 09:30:00 AM Scheduled Provider: Location:[facility] Appointment Type:URO Nurse Visit Appointment Date:12/04/2024 08:40:00 AM Scheduled Provider:MARQUIS LOUISE MD Location:[facility] Appointment Type:URO Office Visit Future Scheduled Tests Laboratory* CBC w/ Auto Diff 10/01/23 * Comprehensive Metabolic Panel 10/01/23 * Thyroid Stimulating Hormone 10/01/23 [facility] evaluation + Plan note Future Appointments Appointment Date:11/06/2024 09:00:00 AM Scheduled Provider: Location:[facility] Appointment Type:URO Nurse Visit Appointment Date:12/04/2024 08:40:00 AM Scheduled Provider:MARQUIS LOUISE MD Location:[facility] Appointment Type:URO Office Visit Future Scheduled Tests Laboratory* CBC w/ Auto Diff 10/01/23 * Comprehensive Metabolic Panel 10/01/23 * Thyroid Stimulating Hormone 10/01/23 [facility] evaluation + Plan note Future Appointments Appointment Date:12/04/2024 08:40:00 AM Scheduled Provider:MARQUIS LOUISE MD Location:[facility] Appointment Type:URO Office Visit Future Scheduled Tests Laboratory* CBC w/ Auto Diff 10/01/23 * Comprehensive Metabolic Panel 10/01/23 * Thyroid Stimulating Hormone 10/01/23 [facility] evaluation + Plan note Future Appointments Appointment Date:06/11/2025 11:40:00 AM Scheduled Provider:LU OLMEDO PA-C Location:[facility] Appointment Type:URO Office Visit Future Scheduled Tests Laboratory* CBC w/ Auto Diff 10/01/23 * Comprehensive Metabolic Panel 10/01/23 * Thyroid Stimulating Hormone 10/01/23 [facility] Evaluation + Plan note Future Appointments Appointment Date:03/04/2026 09:00:00 AM Scheduled Provider:MARQUIS LOUISE MD Location:[facility] Appointment Type:URO Office Visit [facility] evaluation note* Diagnosis Melanocytic nevus of [...] with diabetic polyneuropathy, unspecified whether 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 helper termite insulin use (CMS/HCC) Pain due to onychomycosis of toenails of both feet documented in this encounter [facility]* Diagnosis Xerosis cutis- Primary Other specified disease of sebaceous glands Verruca plantaris Plantar wart Foot pain, right Pain in soft tissues of limb Diabetes mellitus due to underlying condition with diabetic polyneuropathy, unspecified whether 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 helper termite insulin use (CMS/HCC) Onychomycosis Dermatophytosis of nail [...] forms of tremor documented in this encounter [facility]* Diagnosis Benign essential tremor- Primary [...] with diabetic polyneuropathy, unspecified whether 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 helper termite insulin use (CMS/HCC) Pain due to onychomycosis of toenails of both feet documented in this encounter [facility] HealthcareEvaluation note* Diagnosis Benign essential tremor- Primary [...] underlying condition with diabetic polyneuropathy, unspecified whether skilled nursing insulin use (CMS/HCC) Pain due to onychomycosis of toenails of both feet documented in this encounter [facility] HealthcareEvaluation note* Diagnosis Benign essential tremor- Primary [...] with diabetic polyneuropathy, unspecified whether 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 helper termite insulin use (CMS/HCC) Pain due to onychomycosis [...] Emergency squad called today documented in this encounterNOCO HealthcareHospital course Narrative No data available for this section [facility] Hospital Discharge instructions No data available for this section [facility] No data available for this section [facility] Summary Purpose Family History No [...] and content) DATE CREATED AUTHOR 02/09/2019 [facility] DATE CREATED AUTHOR AUTHOR'S ORGANIZ ATION 03/28/2023 [facility] DATE CREATED AUTHOR AUTHOR'S ORGANIZ ATION 04/15/2025 [facility] DATE CREATED AUTHOR AUTHOR'S ORGANIZ ATION 04/16/2025 [facility] DATE CREATED AUTHOR AUTHOR'S ORGANIZ ATION 04/17/2025 [facility] DATE CREATED AUTHOR AUTHOR'S ORGANIZ ATION 04/18/2025 [facility] DATE CREATED AUTHOR AUTHOR'S ORGANIZ ATION 04/19/2025 [facility] DATE CREATED AUTHOR AUTHOR'S ORGANIZ ATION 04/21/2025 [facility] DATE CREATED AUTHOR AUTHOR'S ORGANIZ ATION 04/22/2025 [facility] DATE CREATED AUTHOR AUTHOR'S ORGANIZ ATION 05/09/2025 [facility] DATE CREATED AUTHOR AUTHOR'S ORGANIZ ATION 05/23/2025 [facility] DATE CREATED AUTHOR AUTHOR'S ORGANIZ ATION 06/12/2025 [facility] DATE CREATED AUTHOR AUTHOR'S ORGANIZ ATION 06/14/2025 [facility] DATE CREATED AUTHOR AUTHOR'S ORGANIZ ATION 06/15/2025 [facility] Care Team (unrecognized sect ion and content) 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 Start Date End Date Van Youssef MD [address] [place] [address] PCP - General Family Medicine 12/02/23 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 Start Date End Date Van Youssef MD [address] [place] [address] PCP - General Family Medicine 12/02/23 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 Start Date End Date Van Youssef MD [address] [facility] [place] [address] PCP - General Family Medicine 12/02/23 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 Start Date End Date Van Youssef MD [address] [facility], [phone] PCP - General Family Medicine 12/02/23 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 Start Date End Date Van Youssef MD [address] [facility], [phone] PCP - General Family Medicine 12/02/23 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 Start Date End Date Van Youssef MD [address] [facility], [phone] PCP - General Family Medicine 12/02/23 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 Start Date End Date Van Youssef MD [address] [facility], [phone] PCP - General Family Medicine 12/02/23 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 Start Date End Date Van Youssef MD [address] [facility], [phone] PCP - General Family Medicine 12/02/23 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 Start Date End Date Van Youssef MD [address] [facility] [place] [facility] [place] [address] PCP - General Family Medicine 12/02/23 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 Start Date End Date Van Youssef MD [address] [facility] [place] [address] PCP - General Family Medicine 12/02/23 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 Start Date End Date Van Youssef MD [address] [facility] [place] [address] PCP - General Family Medicine 12/02/23 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 Start Date End Date Van Youssef MD PCP - General Family Medicine 12/02/23 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 Start Date End Date Van Youssef MD [address] [facility] [place] [facility] [place] [address] PCP - General Family Medicine 12/02/23 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 Start Date End Date Van Youssef MD [address] [facility] [place] [address] PCP - General Family Medicine 12/02/23 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 Start Date End Date Van Youssef MD [address] [facility] [place] [address] PCP - General Family Medicine 12/02/23 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 [facility] [employer] [facility]. provides no warranty or guarantee of the accuracy or completeness of information in this document.
== END 2025-06-14 09:01 | disposition home or self-care (01) ==
LOC: CARD 06-15 23:31
PROVIDERS: PCP Family Medicine; Visit Provider Internal Medicine Interventional Cardiology
DX: I08.0 Rheumatic disorders of both mitral and aortic valves (principal); Z95.2 Presence of prosthetic heart valve
CPT/HCPCS: 93306

== ENCOUNTER 2025-06-14 09:30 | Outpatient (RCR) | payer MEDICARE, SELFPAY ==
[2025-06-14 09:53] VITALS: BP 176/71; PULSE 63; TEMP 36.3; O2SAT 94
[2025-06-14] MEDS: INCLISIRAN SODIUM 284 MG/1.5 ML SYRINGE SQ (10:02)
== END 2025-06-14 23:59 | disposition home or self-care (01) ==
LOC: INF 09:30
PROVIDERS: PCP Family Medicine
DX: I25.10 Atherosclerotic heart disease of native coronary artery without angina pectoris (principal); E78.5 Hyperlipidemia, unspecified; I08.0 Rheumatic disorders of both mitral and aortic valves; Z95.2 Presence of prosthetic heart valve
CPT/HCPCS: 93306; 96372; J1306

== ENCOUNTER 2025-07-17 07:12 | Outpatient (OUT) | payer MEDICARE, SELFPAY ==
--- OUTSIDE RECORDS SUMMARY | 2025-07-17 07:18 | XMS_ITS | CCD ---
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 Name Role Phone PHYSICIAN, DEFAULT Admitting Unavailable PHYSICIAN, DEFAULT Attending Unavailable VAN YOUSSEF Primary Care Unavailable Van Youssef Primary Care Physician [phone] MI[address] ., DR ARAUJO Primary Care Unavailable HOY ., DR ARAUJO Consulting Unavailable HOY ., DR ARAUJO Attending Unavailable HOY ., DR ARAUJO Admitting Unavailable ZIEBER, DR CLOVER Zimmer Consulting Unavailable FALSE PASS, DR CRAMER Consulting Unavailable HOY ., DR ARAUJO Primary Care Unavailable FALSE PASS, DR CRAMER Attending Unavailable FALSE PASS, DR CRAMER Admitting Unavailable FALSE PASS, DR CRAMER Consulting Unavailable HOY ., DR ARAUJO Primary Care Unavailable FALSE PASS, DR CRAMER Attending Unavailable FALSE PASS, DR CRAMER Admitting Unavailable HOY ., DR ARAUJO Consulting Unavailable HOY ., DR ARAUJO Primary Care Unavailable HOY ., DR ARAUJO Attending Unavailable HOY ., DR ARAUJO Admitting Unavailable FALSE PASS, DR CRAMER Consulting Unavailable HOY ., DR ARAUJO Primary Care Unavailable FALSE PASS, DR CRAMER Attending Unavailable FALSE PASS, DR CRAMER Admitting Unavailable HOY ., DR [...] ARAUJO Attending Unavailable HOY ., DR ARAUJO Admsgeun Unavailable MOUKARBEL, DR SANFORD Consulting Unavailable HOY [...] Unavailable Van Youssef MD Primary Care Provider [phone] Van Youssef MD Primary Care Provider [phone] Van Youssef MD Primary Care Provider [phone] DO Bunny VERDUGOobir R Admitting UnavailDO Bunny Smithobir R Attending UnavailClover Villatoro Consulting Unavailable MD Clover Walker Consulting Unavailable [place]qu[place], Clover Consulting Unavailable [place], Clover Consulting Unavailable [place] Clover Consulting Unavailable [place] Clover Consulting Unavailable [place], Clover Consulting Unavailable [place], Clover Consulting Unavailable [place], Clover Consulting Unavailable [facility] Wound, XXXX Consulting Unavailable [facility] Cardio, XXXX Consulting Unavailable Hanna Mahmoud Consulting Unavailable MD Rebeca Ferreira Consulting Unavailable Othman Mahmoud Consulting Unavailable KARTIK, Ronobir R Admitting Unavailable Bunny VERDUGOobir R Attending Unavailable [facility] Wound, XXXX Consulting Unavailable HOY, VAN M Primary Care Unavailable HOY, VAN M Referring Unavailable HOY, VAN M Primary Care Unavailable HOY, VAN M Referring Unavailable HOY, VAN M Primary Care Unavailable HOY, VAN M Referring Unavailable HOY, VAN M Primary Care Unavailable HOY, VAN M Referring Unavailable HOY, VAN M Primary Care Unavailable HOY, VAN M Primary Care Unavailable JERI RUFF Referring Unavailable JERI RUFF Referring Unavailable RUY SULLIVAN Referring Unavailable EFRAIN REED Referring Unavailable NEDRA DE SOUZA Referring Unavailable NEDRA DE SOUZA Referring Unavailable NEDRA DE SOUZA Referring Unavailable NEDRA DE SOUZA Referring Unavailable SAM MORA Referring Unavailable AISSATOU HUGHES Referring Unavailable JADEN PIEDRA Referring Unavailable CLARIBEL CISNEROS Admitting Unavailable NIKOLAS GONZALEZ Attending Unavailable GARCÍA MUIR Referring Unavailable HUGHES, AISSATOU Referring Unavailable MOUKARBEL, [...] Unavail able SINGHMejia Attending Unavailable SINGH, Mejia Zimmer Referring Unavailable NKANSAH-AMANKRA, MARQUIS Attending Unavail able SINGHMejia Attending Unavailable LU OLMEDO Attending Unavailable NKANSAH-AMANKRA, MARQUIS Referring Unavail able NKANSAH-AMANKRA, MARQUIS Attending Unavail able NKANSAH-AMANKRA, MARQUIS Attending Unavail able NKANSAH-AMANKRA, MARQUIS Referring Unavail able NKANSAH-AMANKRA, MARQUIS Admitting Unavail able NKANSAH-AMANKRA, MARQUIS Attending Unavail able NKANSAH-AMANKRA, MARQUIS Referring Unavail able NKANSAH-AMANKRA, MARQUIS Admitting Unavail able Rivas Griggs Attending Unavailable AMYJEFF Attending Unavailable FALSE PASSRUTHIE Attending Unavailable MOUKARBELCLARIBEL Attending Unavailable LAURIERUY Attending Unavailable MOUKARBEL, CLARIBEL Attending Unavailable MOUKARBELCLARIBEL Attending Unavailable MOUKARBELCLARIBEL Attending Unavailable MOUKARBELCLARIBEL Referring Unavailable BLAISE CHICAS Attending Unavailable BARRIE MONTOYA Attending Unavailable BLAISE CHICAS Attending Unavailable MONY HERRON Attending Unavailable BLAISE CHICAS Attending Unavailable BARRIE MONTOYA Attending Unavailable BLAISE CHICAS Attending Unavailable BARRIE MONTOYA Attending Unavailable BLAISE CHCIAS Attending Unavailable RODNEY JOY Attending Unavailable BLAISE CHICAS Attending Unavailable BLAISE CHICAS Attending Unavailable Allergies Allergy Classification Reported Allergen(s) Allergy Type Date of Onset Reaction(s) Facility (20 sources) Aminolevulinic Acid; Translations: [aminolevulinic acid] Drug Allergy 11-04-20 13 Unknown [facility] Repository (1 source) NITRO PATCH; Translations: [NITRO PATCH] Propensity to adverse reactions (disorder) 03-18-20 12 [facility] Rep[facility] (20 sources) Contrast media; Translations: [Contrast Dye] Drug allergy Unknown (qualifier value) [facility] (20 sources) Hmg-Coa Reductase Inhibitors (Statins); Translations: [statins] Allergy to substance 08-24-20 23 Unknown [facility] (20 sources) Nitroglycerin; Translations: [nitroglycerin] Drug Allergy 02-23-20 22 Unknown (qualifier value) [facility] (2 sources) black walnut pollen extract; Translations: [[id number] REDUCTASE INHIBITORS] Drug Allergy 04-21-20 17 [facility] (1 source) Iodine (And Iodine Containting Drugs) Drug allergy (disorder) 05-28-20 16 [facility] (20 sources) Nitroglycerin Allergy to substance 02-23-20 22 [facility] (20 sources) Iodinated Contrast Media; Translations: [IODINATED CONTRAST MEDIA] Drug Allergy 08-24-20 23 [facility] (14 sources) Simvastatin; Translations: [simvastatin] Drug Allergy 05-10-20 25 elevated liver enzymes [facility] (7 sources) Aminolevulinic Acid; Translations: [aminolevulinic acid] Drug Allergy 11-04-20 13 [facility] (7 sources) Nitroglycerin; Translations: [Nitroglycerin Patch] Drug Allergy [facility] (2 sources) Aminolevulinic Acid; Translations: [AMINOLEVULINIC ACID HCL] Drug Allergy 05-10-20 25 [facility] Medications Current Medications Medication Drug Class(es) Dates Sig (Normalized) Sig (Original) acetaminophen 500 mg oral tablet (8 sources) take 2 tablets by mouth every [...] every six hours as needed for pain Sabine 325 mg-5 mg oral tablet 1 tab(s), Oral, q6hr, 2 tab(s), Refill(s) 0, Take q6hrs as needed for pain., [facility]/pharmacy #[id number], 185, cm, 10/02/24 11:15:00 EST, [...] Active bacitracin zinc 0.5 unt/mg topical ointment (8 sources) bacitracin 500 UNIT/GM ointment Apply 1 [...] Discontinued cetirizine hydrochloride 10 mg oral tablet (10 sources) Histamine-1 Receptor Antagonist Start: 04-14-2025 take [...] procedure., # 6 tab(s), Refills(s) 0, Pharmacy: [facility]/pharmacy #[id number], 185, cm, 10/02/24 11:15:00 EST, Height/Length Dosing, 91, kg, 10/02/24 11:15:00 EST, Weight Dosing Start Date: 10/16/24 Status: Ordered Start: 08-11-2024 take 1 tablet by joslyn th twice daily Cipro 500 mg Tab 500 mg = 1 tab(s), Oral, BID, Start 3 days prior to procedure., # 6 tab(s), Refills(s) 0, Pharmacy: [facility]/pharmacy #[id number], 185, cm, 08/08/24 10:28:00 EDT, [...] procedure., # 1 tab(s), Refills(s) 0, Pharmacy: [facility]/pharmacy #[id number], 185, cm, 10/02/24 11:15:00 EST, [...] salmeterol xinafoate 0.014 mg/actuat dry powder inhaler (8 sources) Corticosteroid, beta2-Adrenergic Agonist take 1 puff(s) [...] lispro protamine, human 50 unt/ml pen injector (8 sources) Insulin Analog insulin lispro protamine-insulin lispro [...] Status: Completed Repeat number: 1 Start: 01-09-2019 labetalol 300 mg Tab 300 mg = [...] 07/23/2023 Active linagliptin 5 mg oral tablet (9 sources) Dipeptidyl Peptidase 4 Inhibitor Start: 06-11-2025 take 5 mg by mouth once daily Tradjenta 5 mg, Oral, Daily Start Date: 06/11/25 Status: Ordered Repeat number: 1 Loratadine (9 sources) Start: 06-11-2025 loratadine 10 mg, Daily [...] Daily Prior to colonoscopy Per physician's instructions, [facility]/pharmacy #[id number], 185, cm, 03/31/22 9:58:00 EDT, [...] week(s), # 42 tab(s), Refills(s) 0, Pharmacy: [facility]/pharmacy #[id number], 185, cm, 10/02/24 11:15:00 EST, [...] DAY for 90 Active polyethylene glycol 3350 74233 mg powder for oral solution (8 sources) Osmotic Laxative take 17 g by [...] 01-09-2019 take 2 tablets by mo [facility] twice daily primidone 50 mg Tab 100 mg = 2 tab(s), Oral, BID, # 30 tab(s), Refills(s) 0, Seizure Start Date: 01/09/19 Status: Ordered Quantity: 30.0 Unit: tab(s) Repeat number: 1 Start: 01-09-2019 take 1 tablet by [facility] once daily at bedtime primidone 50 mg Tab 50 mg = 1 tab(s), Oral, Once a day (at bedtime), # 30 tab(s), Refills(s) 0, Seizure Start Date: 01/09/19 Status: Ordered rivaroxaban 15 mg oral tablet (14 sources) Factor Xa Inhibitor Start: 04-14-2025 take [...] Status: Ordered spironolactone 25 mg oral tablet (10 sources) Aldosterone Antagonist Start: 04-14-2025 take 1 [...] Ordered Repeat number: 1 60 actuat tiotropium 0.61230 mg/actuat inhalation spray (20 sources) Anticholinergic Start: [...] Discontinued Start: 08-28-2020 take 1 capsule by [facility] once daily Align 4 mg oral capsule 4 mg = 1 cap(s), Oral, Daily, Take after completing the Antibiotics course, # 28 cap(s), Refills(s) 0, Pharmacy: [facility]/pharmacy #[id number], 185, cm, 08/28/20 12:05:00 EDT, [...] water, # 160 cap(s), Refills(s) 1, Pharmacy: [facility]/pharmacy #[id number], 185, cm, 08/28/20 12:05:00 EDT, [...] Onset: 03-04-2023 Episodic Diabetes mellitus with complications (16 sources) Type 2 diabetes mellitus with hyperglycemia; [...] 08-08-2024 Chronic Late effects of cerebrovascular disease (20 sources) Sequelae of cerebral infarction; Translations: [Unspecified sequelae of cerebral infarction] Onset: 04-10-2025 04-10-2025 Chronic Mycoses (12 sources) Pain in toe; Translations: [Tinea unguium] 09-08-2024 Episodic Nausea and vomiting (12 sources) Nausea; Translations: [Nausea] Onset: 10-01-2023 Episodic Nonspecific chest pain (2 sources) Chest pain, unspecified; Translations: [Chest pain, unspecified] Onset: 05-10-2025 Episodic Nutritional deficiencies (2 sources) Vitamin D deficiency, unspecified; Translations: [Vitamin D deficiency, unspecified] Onset: 07-05-2024 Chronic Nutritional deficiencies (4 sources) Cobalamin deficiency; Translations: [Deficiency of other specified B group vitamins] Onset: 07-10-2025 07-10-2025 Episodic Occlusion or stenosis of precerebral arteries (20 sources) Bilateral stenosis of carotid arteries; Translations: [Occlusion and stenosis of bilateral carotid arteries] Onset: 04-10-2025 04-10-2025 Chronic Other aftercare (3 sources) Long-term current use of anticoagulant; Translations: [keno terminal operator (current) use of anticoagulants] Onset: 08-08-2024 Episodic Other aftercare (1 source) Long-term current use of drug therapy; Translations: [Other buttermaker (current) drug therapy] Onset: 04-14-2025 Episodic Other [...] 01-07-2024 01-07-2024 Episodic Other connective tissue disease (16 sources) Pain in right foot; Translations: [Pain [...] [Polyneuropathy, unspecified] Onset: 01-07-2024 01-07-2024 Chronic Other nervous system disorders (4 sources) Tremor; Translations: [Tremor, unspecified] Onset: 01-07-2024 07-10-2025 Episodic Other skin disorders (2 sources) Actinic [...] pericardial effusion (noninflammatory)] Onset: 10-05-2022 Viral infection (16 sources) Verruca plantaris; Translations: [Plantar wart] 09-08-2024 [...] Onset: 04-30-2022 Episodic Other aftercare (1 source) keno terminal operator (current) use of aspirin; Translations: [WEB DEVELOPER PROGRAMMER CURRENT USE OF ASPIRIN] Onset: 08-27-2022 Episodic Other aftercare (1 source) [facility] (current) use of anticoagulants; Translations: [ALF CURRNT USE ANTICOAGULANTS] Onset: 08-27-2022 Episodic Other aftercare (1 source) Other buttermaker (current) drug therapy; Translations: [OTH WEB DEVELOPER PROGRAMMER CURRENT DRUG THERAPY] Onset: 08-27-2022 Episodic Other [...] Value Interpretation Reference Range Facility Office Visiton 06-18-2025 Follow-up visit [id number] Nadir Beth 1940 M Date Provider Department Center 06/18/2025 Parris-CLARIBEL CISNEROS MILKA Beckett Family History Problem Relation Age of Onset Coronary artery disease Father Family Status - Relation Status Age at Mother Father Level of Service:32736 CT OFFICE/OUTPATIENT ESTABLISHED MOD MDM 30 MIN Normal [facility] Orders Onlyon 06-14-2025 Orders Only [id number] Nadir Beth 1940 M Date Provider Department Center 06/14/2025 [id number], HISTORICAL MILKA Beckett Family History Problem Relation Age of Onset Coronary artery disease Father Family Status - Relation Status Age at Mother Father Normal [facility] Urology Office/Clinic Noteon 06-12-2025 Urology Office/Clinic Note [...] Refuses SARS-C (more content not included)... Normal [facility] Comment on above: Result Comment: Elec tronically Signed By: LU OLMEDO PA-C\.br\Date and Time Signed: 06/12/25 13:19 EDT Ambulatory Visit Summaryon 0 06-11-2025 Ambulatory Visit Summary Ambulatory Visit Summary NADIR LIN Joy :1940 Visit Date:06/11/2025 Ambulatory Visit Instructions Your [...] MARQUIS LOUISE MD Where: [facility] [address], [address] [place] [address]- Medications What How Much When Why Instructions [...] physician i (more content not included)... [facility] 36on 05-30-2025 36 Casket Coverer called shirley iverson to contact office back to reschedule appointment with . [facility] Office Visiton 05-28-2025 Follow-up visit [id number] Nadir Beth 1940 M Date Provider Department Center 05/28/2025 RUY ESQUIVEL Family History Problem Relation Age of Onset Coronary artery disease Father Family Status - Relation Status Age at Mother Father Level of Service:56794 CT OFFICE/OUTPATIENT ESTABLISHED MOD MDM 30 MIN Normal [facility] Orders Onlyon 05-28-2025 Orders Only [id number] Nadir Beth 1940 M Date Provider Department Center 05/28/2025 RUY ESQUIVEL Family History Problem Relation Age of Onset Coronary artery disease Father Family Status - Relation Status Age at Mother Father Normal [facility] 30on 05-17-2025 30 Daily Case Managemen t Update Barriers to Discharge: Patient is to discharge to intermediate facility [facility] today. Stretcher transport has been established with [facility], potato picker time 1934. Diet: Dietary Orders (From [...] Request Once Comments: Omelet with green pepper, [place] cheese and onion Wheat toast Sausage Raisin bran Milk Decaf coffee 05/17/25 0802 05/16/25 1553 Special Kitchen Request Once Comments: Hudson burger with cheese On the side: tomato, [...] Request Once Comments: Omelet with green pepper, [place] cheese and onion, 1 slice wheat toast, [...] diet coke 05/10/251806 Physician Expected Discharge Date: 05/17/2025 Discharge Delays: [...] Answer: gait abnormality 05/10/25 0411 Normal [facility] 30 The patient is Moderately Stable [...] Maintains hematologic stability Outcome: Progressing Normal [facility] CBC WITH AUTO DIFFERENTIALon 05-17-2025 Erythrocyte distribution width (RBC) [Ratio] 19.8 % High 11.5-15.0 [facility] Comment on above: Performed By: #### L [id number] #### [facility] ([facility] [address] [place] [address] ERYTHROCYTE MEAN CORPUSCULAR HEMOGLOBIN CONCENTRATION (G/DL) BY AUTOMATED 30.4 g/dL Low 32.0-35.0 [facility] Comment on above: Performed By: #### L [id number] #### [facility] ([facility]) [address] [place] [address] Hematocrit (Bld) [Volume fraction] 34.2 % Low 39.0-50.0 [facility] Comment on above: Performed By: #### L [id number] #### [facility] ([facility]) [address] [place] [address] Hemoglobin (Bld) [Mass/Vol] 10.4 g/dL Low 13.0-17.0 [facility] Comment on above: Performed By: #### L [id number] #### [facility] ([facility]) [address] [place] [address] MCH (RBC) [Entitic mass] 25.6 pg Low 27.0-33.0 [facility] Comment on above: Performed By: #### L [id number] #### [facility] ([facility]) [address] [place] [address] MCV (RBC) [Entitic vol] 84.2 fL Normal 82.0-98.0 [facility] Comment on above: Performed By: #### L [id number] #### [facility] ([facility]) [address] [place] [address] NRBC (PER 100 WBCS) BY AUTOMATED COUNT 0.0 % Normal 0 [facility] Comment on above: Performed By: #### L [id number] #### [facility] ([facility]) [address] [place] [address] PLATELETS (10*3/UL) IN BLOOD AUTOMATED COUNT 256 10*3/uL Normal 150-400 [facility] Comment on above: Performed By: #### L [id number] #### [facility] ([facility]) [address] [place] [address] RBC (Bld) [#/Vol] 4.06 10*6/uL Low 4.20-5.70 [facility] Comment on above: Performed By: #### L [id number] #### [facility] ([facility] [address] [address] WBC (Bld) [#/Vol] 12.14 10*3/uL High 4.00-10.60 [facility] Comment on above: Performed By: #### L [id number] #### [facility] ([facility] [address] [address] COMPREHENSIVE METABOLIC PANE Jaren 05-17-2025 ALANINE AMINOTRANSFERASE (SGPT) (U/L) IN SER/PLAS <3 Low 7-52 [facility] Comment on above: Performed By: #### L [id number] ####[facility] ([facility])[address] [place] [address] Albumin [Mass/Vol] 3.4 g/dL Low 3.5-5.7 [facility] Comment on above: Performed By: #### L [id number] ####[facility] ([facility])[address] [place] [address] ALP [Catalytic activity/Vol] 68 U/L Normal 34-104 [facility] Comment on above: Performed By: #### L [id number] ####[facility] (BEAKER)[address] [place] [address] Anion gap [Moles/Vol] 15 mmol/L Normal 7-20 [facility] Comment on above: Performed By: #### L [id number] ####[facility] (BEAKER)[address] [place] [address] AST [Catalytic activity/Vol] 13 U/L Normal 13-39 [facility] Comment on above: Performed By: #### L [id number] ####[facility] ([facility]AKER)[address] [place] [address] Bilirubin [Mass/Vol] 0.5 mg/dL Normal 0.3-1.0 [facility] Comment on above: Performed By: #### L [id number] ####[facility] ([facility])[address] [place] [address] Calcium [Mass/Vol] 8.6 mg/dL Normal 8.6-10.3 [facility] Comment on above: Performed By: #### L [id number] ####[facility] ([facility])[address] [place] [address] Chloride [Moles/Vol] 104 mmol/L Normal 98-107 [facility] Comment on above: Performed By: #### L [id number] ####[facility] ([facility])[address] [place] [address] CO2 [Moles/Vol] 25 mmol/L Normal 21-31 [facility] Comment on above: Performed By: #### L [id number] ####[facility] ([facility])[address] [place] [address] Creatinine [Mass/Vol] 1.73 mg/dL High 0.70-1.30 [facility] Comment on above: Performed By: #### L [id number] ####[facility] ([facility])[address] [place] [address] GLOMERULAR FILTRATION RATE ML/MIN/1.73 SQ M.PREDICTED 38.0 mL/min/1.73m*2 Low >60.0 [facility] Comment on above: Result Comment: [facility]???s estimated glomerular filtration rate (eGFR) will [...] of individuals. Performed By: #### L [id number] ####[facility] ([facility])[address] [place] [address] Glucose [Mass/Vol] 239 mg/dL High 70-100 [facility] Comment on above: Performed By: #### L [id number] ####[facility] ([facility])[address] [place] [address] Potassium [Moles/Vol] 3.9 mmol/L Normal 3.5-5.1 [facility] Comment on above: Performed By: #### L [id number] ####[facility] ([facility])[address] [place] [address] Protein [Mass/Vol] 6.3 g/dL Normal 6.0-8.3 [facility] Comment on above: Performed By: #### L [id number] ####[facility] ([facility])[address] [place] [address] Sodium [Moles/Vol] 140 mmol/L Normal 136-145 [facility] Comment on above: Performed By: #### L [id number] ####[facility] ([facility])[address] [place] [address] Urea nitrogen [Mass/Vol] 38 mg/dL High 7-25 [facility] Comment on above: Performed By: #### L [id number] ####[facility] ([facility])[address] [place] [address] UREA NITROGEN/CREATININE (MASS RATIO) IN SER/PLAS 22.0 Normal [facility] Comment on above: Performed By: #### L [id number] ####[facility] ([facility])[address] [place] [address] DSon 05-17-2025 DS -- Attestation signed by [...] was admitted as a direct transfer from [facility] on 05/10/2025 for acute on chronic heart failure. 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 He presented to the ED on the advice of his physician following an increase in lower extremity edema with associated labs showing a BNP 6200. In the [facility] ED he was found to have pulmonary vascular congestion with right sided pleural effusion on chest x-ray, and found to be hypertensive at 190/68, and EKG showed A-fib, he was initially managed medically with lasix and antihypertensives prior to transfer. Patient follows up with Dr. Bland who had scheduled right heart cath on 05/10/2025. At [facility] echo was performed which was unable to [...] Provider Department Center 05/28/2025 2:20 PM Ruy Sullivan CNP MILKA Beckett 06/15/2025 10:30 AM [facility] CV ECHO ROOM 2 [facility] [place] [facility] 06/18/2025 11:30 AM MD LAN Kelley Your medication list START taking these medications [...] glimepi (more content not included)... Normal [facility] MANUAL DIFFERENTIALon 2024 BASOPHILS (10*3/UL) IN BLOOD BY CALCULATION 0.05 10*3/uL Normal 0.00-0.20 [facility] Comment on above: Performed By: #### L [id number] #### [facility] ([facility]) [address] [place] [address] BASOPHILS/100 LEUKOCYTES IN BLOOD BY AUTOMATED COUNT 0.4 % Normal 0.0-1.0 [facility] Comment on above: Performed By: #### L [id number] #### [facility] ([facility]) [address] [place] [address] EOSINOPHILS (10*3/UL) IN BLOOD BY CALCULATION 0.05 10*3/uL Normal 0.00-0.50 [facility] Comment on above: Performed By: #### L [id number] #### [facility] ([facility] [address] [place] [address] EOSINOPHILS/100 LEUKOCYTES IN BLOOD BY AUTOMATED COUNT 0.4 % Normal 0.0-6.0 [facility] Comment on above: Performed By: #### L [id number] #### [facility] ([facility]) [address] [place] [address] IMMATURE GRANULOCYTES (10*3/UL) IN BLOOD BY CALCULATION 0.07 10*3/uL Normal 0.00-0.20 [facility] Comment on above: Performed By: #### L [id number] #### [facility] ([facility]) [address] [place] [address] IMMATURE GRANULOCYTES/100 LEUKOCYTES IN BLOOD BY AUTOMATED COUNT 0.6 % Normal 0.0-1.0 [facility] Comment on above: Performed By: #### L [id number] #### [facility] ([facility]) [address] [place] [address] LYMPHOCYTES (10*3/UL) IN BLOOD BY CALCULATION 0.87 10*3/uL Low 1.20-4.00 [facility] Comment on above: Performed By: #### L [id number] #### [facility] ([facility] [address] [place] [address] LYMPHOCYTES/100 LEUKOCYTES IN BLOOD BY AUTOMATED COUNT 7.2 % Low 20.0-45.0 [facility] Comment on above: Performed By: #### L [id number] #### [facility] ([facility] [address] [place] [address] MONOCYTES (10*3/UL) IN BLOOD BY CALCUATION 1.92 10*3/uL High 0.10-1.00 [facility] Comment on above: Performed By: #### L [id number] #### [facility] ([facility] [address] [place] [address] MONOCYTES/100 LEUKOCYTES IN BLOOD BY AUTOMATED COUNT 15.8 % High 5.0-12.0 [facility] Comment on above: Performed By: #### L [id number] #### [facility] ([facility] [address] [place] [address] NEUTROPHILS (10*3/UL) IN BLOOD BY CALCULATION 9.2 10*3/uL High 1.6-7.6 [facility] Comment on above: Performed By: #### L [id number] #### [facility] ([facility]) [address] [place] [address] NEUTROPHILS/100 LEUKOCYTES IN BLOOD BY AUTOMATED COUNT 75.6 % High 40.0-72.0 [facility] Comment on above: Performed By: #### L [id number] #### [facility] ([facility]) [address] [place] [address] NURSNOTEon 05-17-2025 NURSNOTE Report called to BRANDEN Norton at [facility]. [facility] NURSNOTE Patient Name: Nadir Beth : 1940 [...] Liz Joshi RN Rapid Response Team Nurse [phone] 05/17/2025 10:35 AM Normal [facility] NURSNOTE Patient Name: Nadir Beth : [...] time, but encouraged to reach out to SCALE AGENT if anything changes. Marc Araiza, RN Rapid Response Team Nurse [phone] 05/17/2025 2:32 AM Normal [facility] POCT GLUCOSE METER UNSOLICIT ED RESULTSon 05-17-2025 Glucose [Mass/Vol] 331 mg/dL High 70-105 [facility] Comment on above: Order Comment: Waive d Testing in the ED is performed under the ED CLIA certificate #[id number]. Result Comment: [email or web address] Performed By: #### L [id number] ####[facility] ([facility] [facility] [place] [address] Glucose [Mass/Vol] 310 mg/dL High 70-105 [facility] Comment on above: Order Comment: Waive d Testing in the ED is performed under the ED CLIA certificate #[id number]. Result Comment: [email or web address] Performed By: #### L [id number] ####[facility] ([facility])[address] [place] [address] Glucose [Mass/Vol] 235 mg/dL High 70-105 [facility] Comment on above: Order Comment: Waive d Testing in the ED is performed under the ED CLIA certificate #[id number]. Result Comment: [email or web address] Performed By: #### L [id number] ####[facility] ([facility] [place] [address] 30on 05-16-2025 30 The patient is Moderately [...] and behaviors that affect risk of falls [place] fall precautions as indicated by assessment Educate [...] (Take (more content not included)... Normal [facility] 30 Daily Case Managemen t Update Barriers to Discharge: Pending clinical course and clearance. POD #1 TAVR. Needs PT & OT to reevaluate to make sure patient can still return home. Slight ARTUR. ECHO today. Blood cultures pending. Diet: Dietary Orders (From admission, onward) Start Ordered 05/16/25 1553 Special Kitchen Request Once Comments: Hudson burger with cheese On the side: tomato, [...] Request Once Comments: Omelet with green pepper, [place] cheese and onion, 1 slice wheat toast, [...] Answer: gait abnormality 05/10/25 0411 Normal [facility] APTTon 05-16-2025 ACTIVATED PARTIAL THROMBOPLASTIN TIME IN PPP BY COAGULATION ASSAY 77.8 Seconds High 25.0-35.0 [facility] Comment on above: Result Comment: Clin ical significance of the APTT is questionable in the presence of heparin. Performed By: #### L [id number] #### [facility] ([facility]) [address] [place] [address] ACTIVATED PARTIAL THROMBOPLASTIN TIME IN PPP BY COAGULATION ASSAY 63.8 Seconds High 25.0-35.0 [facility] Comment on above: Result Comment: Clin ical significance of the APTT is questionable in the presence of heparin. Performed By: #### L [id number] #### [facility] ([facility]) [address] [place] [address] BASIC METABOLIC PANELon 07- Anion gap [Moles/Vol] 19 mmol/L Normal 7-20 [facility] Comment on above: Performed By: #### L [id number] #### [facility] ([facility]) [address] [place] [address] Calcium [Mass/Vol] 8.6 mg/dL Normal 8.6-10.3 [facility] Comment on above: Performed By: #### L [id number] #### [facility] ([facility] [address] [place] [address] Chloride [Moles/Vol] 103 mmol/L Normal 98-107 [facility] Comment on above: Performed By: #### L [id number] #### [facility] ([facility]) [address] [place] [address] CO2 [Moles/Vol] 22 mmol/L Normal 21-31 [facility] Comment on above: Performed By: #### L [id number] #### [facility] ([facility]) [address] [place] [address] Creatinine [Mass/Vol] 1.71 mg/dL High 0.70-1.30 [facility] Comment on above: Performed By: #### L [id number] #### [facility] ([facility]) [address] [place] [address] GLOMERULAR FILTRATION RATE ML/MIN/1.73 SQ M.PREDICTED 38.5 mL/min/1.73m*2 Low >60.0 [facility] Comment on above: Result Comment: The [facility]???s estimated glomerular filtration rate (eGFR) will [...] individuals. Performed By: #### L [id number] #### [facility] ([facility]) [address] [place] [address] Glucose [Mass/Vol] 222 mg/dL High 70-100 [facility] Comment on above: Performed By: #### L [id number] #### [facility] ([facility]) [address] [place] [address] Potassium [Moles/Vol] 4.2 mmol/L Normal 3.5-5.1 [facility] Comment on above: Performed By: #### L [id number] #### [facility] ([facility] [address] [place] [address] Sodium [Moles/Vol] 140 mmol/L Normal 136-145 [facility] Comment on above: Performed By: #### L [id number] #### [facility] ([facility]) [address] [place] [address] Urea nitrogen [Mass/Vol] 41 mg/dL High 7-25 [facility] Comment on above: Performed By: #### L [id number] #### [facility] ([facility] [address] [place] [address] UREA NITROGEN/CREATININE (MASS RATIO) IN SER/PLAS 24.0 [facility] Comment on above: Performed By: #### L [id number] #### [facility] ([facility] [address] [place] [address] BLOOD CULTUREon 05-16-2025 Bacteria identified Cx Nom (Bld) No growth at 5 days [facility] Comment on above: Order Comment: From a different site than #1. Performed By: #### L [id number] ####[facility] ([facility] [place] [address] Performed By: #### L [id number] #### [facility] ([facility] [address] [place] [address] CBCon 05-16-2025 Erythrocyte distribution width (RBC) [Ratio] 19.5 % High 11.5-15.0 [facility] Comment on above: Performed By: #### L [id number] #### [facility] [address] [place] [address] ERYTHROCYTE MEAN CORPUSCULAR HEMOGLOBIN CONCENTRATION (G/DL) BY AUTOMATED 30.2 g/dL Low 32.0-35.0 [facility] Comment on above: Performed By: #### L [id number] #### [facility] ([facility]) [address] [place] [address] Hematocrit (Bld) [Volume fraction] 33.1 % Low 39.0-50.0 [facility] Comment on above: Performed By: #### L [id number] #### [facility] ([facility]) [address] [place] [address] Hemoglobin (Bld) [Mass/Vol] 10.0 g/dL Low 13.0-17.0 [facility] Comment on above: Performed By: #### L [id number] #### [facility] ([facility]) [address] [place] [address] MCH (RBC) [Entitic mass] 25.4 pg Low 27.0-33.0 [facility] Comment on above: Performed By: #### L [id number] #### [facility] ([facility]) [address] [place] [address] MCV (RBC) [Entitic vol] 84.0 fL Normal 82.0-98.0 [facility] Comment on above: Performed By: #### L [id number] #### [facility] ([facility]) [address] [place] [address] PLATELETS (10*3/UL) IN BLOOD AUTOMATED COUNT 306 10*3/uL Normal 150-400 [facility] Comment on above: Performed By: #### L [id number] #### [facility] ([facility]) [address] [place] [address] RBC (Bld) [#/Vol] 3.94 10*6/uL Low 4.20-5.70 [facility] Comment on above: Performed By: #### L [id number] #### [facility] ([facility]) [address] [place] [address] WBC (Bld) [#/Vol] 14.93 10*3/uL High 4.00-10.60 [facility] Comment on above: Performed By: #### L [id number] #### [facility] ([facility]) [address] [place] [address] Orders Onlyon 05-16-2025 Orders Only [id number] Nadir Beth 1940 M Date Provider Department Center 05/16/2025 [id number] [place] HeartVAS No family history on file Normal [facility] POCT GLUCOSE METER UNSOLICIT ED RESULTSon 05-16-2025 Glucose [Mass/Vol] 374 mg/dL High 70-105 [facility] Comment on above: Order Comment: Waive d Testing in the ED is performed under the ED CLIA certificate #[id number]. Result Comment: [email or web address] Performed By: #### L [id number] #### [facility] ([facility]) [address] [place] [address] Glucose [Mass/Vol] 292 mg/dL High 70-105 [facility] Comment on above: Order Comment: Waive d Testing in the ED is performed under the ED CLIA certificate #[id number]. Result Comment: [email or web address] Performed By: #### L [id number] #### [facility] ([facility] [address] [facility] [place] [place] [address] Glucose [Mass/Vol] 254 mg/dL High 70-105 [facility] Comment on above: Order Comment: Waive d Testing in the ED is performed under the ED CLIA certificate #[id number]. Result Comment: mmol den3 Performed By: #### L [id number] #### [facility] ([facility] [address] [place] [address] Glucose [Mass/Vol] 272 mg/dL High 70-105 [facility] Comment on above: Order Comment: Waive d Testing in the ED is performed under the ED CLIA certificate #[id number]. Result Comment: mmol den3 Performed By: #### L [id number] #### [facility] ([facility]) [address] [place] [address] 30on 05-15-2025 30 Daily Case Managemen t Update Multidisciplinary rounds have been completed. Barriers to Discharge: Patient to go for TAVR Today. Discharge dispo: pending clinical course, Prior to Operation PT/OT rec Patient is able to return to prior living environment (Presents from SNF). [facility] from [facility], with tentative plan to return when medically ready. Diet: Dietary Orders (From admission, onward) Start Ordered 05/15/25 0001 Diet NPO Diet effective midnight Comments: Sips with medications Question: Reason for NPO: Answer: Operation/Procedure 05/14/25 1521 05/14/25 0631 Special Kitchen Request Once Comments: Omelet with green pepper, citizen [place] cheese and onion, 1 slice wheat toast, [...] Answer: gait abnormality 05/10/25 0411 Normal [facility] 30 The patient is Moderately Stable [...] next 3 months Outcome: Progressing Normal [facility] APTTon 05-15-2025 ACTIVATED PARTIAL THROMBOPLASTIN TIME IN PPP BY COAGULATION ASSAY 73.2 Seconds High 25.0-35.0 [facility] Comment on above: Result Comment: Clin ical significance of the APTT is questionable in the presence of heparin. Performed By: #### L [id number] #### [facility] ([facility]) [address] [place] [address] ACTIVATED PARTIAL THROMBOPLASTIN TIME IN PPP BY COAGULATION ASSAY 51.8 Seconds High 25.0-35.0 [facility] Comment on above: Result Comment: Clin ical significance of the APTT is questionable in the presence of heparin. Performed By: #### L [id number] #### [facility] [address] [place] [address] BASIC METABOLIC PANELon 07-0 Anion gap [Moles/Vol] 16 mmol/L Normal 7-20 [facility] Comment on above: Performed By: #### L [id number] #### [facility] ([facility]) [address] [place] [address] Calcium [Mass/Vol] 8.9 mg/dL Normal 8.6-10.3 [facility] Comment on above: Performed By: #### L [id number] #### [facility] ([facility]) [address] [place] [address] Chloride [Moles/Vol] 99 mmol/L Normal 98-107 [facility] Comment on above: Performed By: #### L [id number] #### [facility] ([facility]) [address] [place] [address] CO2 [Moles/Vol] 27 mmol/L Normal 21-31 [facility] Comment on above: Performed By: #### L [id number] #### [facility] ([facility]) [address] [place] [address] Creatinine [Mass/Vol] 1.61 mg/dL High 0.70-1.30 [facility] Comment on above: Performed By: #### L [id number] #### [facility] ([facility]) [address] [place] [address] GLOMERULAR FILTRATION RATE ML/MIN/1.73 SQ M.PREDICTED 41.4 mL/min/1.73m*2 Low >60.0 [facility] Comment on above: Result Comment: The [facility]???s estimated glomerular filtration rate (eGFR) will [...] individuals. Performed By: #### L [id number] #### [facility] ([facility]) [address] [address] Glucose [Mass/Vol] 255 mg/dL High 70-100 [facility] Comment on above: Performed By: #### L [id number] #### [facility] ([facility]) [address] [place] [address] Potassium [Moles/Vol] 4.5 mmol/L Normal 3.5-5.1 [facility] Comment on above: Performed By: #### L [id number] #### [facility] ([facility]) [address] [place] [address] Sodium [Moles/Vol] 137 mmol/L Normal 136-145 [facility] Comment on above: Performed By: #### L [id number] #### [facility] ([facility]) [address] [place] [address] Urea nitrogen [Mass/Vol] 34 mg/dL High 7-25 [facility] Comment on above: Performed By: #### L [id number] #### [facility] ([facility] [address] [facility] [place] [address] UREA NITROGEN/CREATININE (MASS RATIO) IN SER/PLAS 21.1 Normal [facility] Comment on above: Performed By: #### L [id number] #### [facility] ([facility]) [address] [place] [address] CBCon 05-15-2025 Erythrocyte distribution width (RBC) [Ratio] 19.0 % High 11.5-15.0 [facility] Comment on above: Performed By: #### L [id number] #### [facility] ([facility]) [address] [place] [address] ERYTHROCYTE MEAN CORPUSCULAR HEMOGLOBIN CONCENTRATION (G/DL) BY AUTOMATED 30.7 g/dL Low 32.0-35.0 [facility] Comment on above: Performed By: #### L [id number] #### [facility] ([facility] [address] [place] [address] Hematocrit (Bld) [Volume fraction] 33.6 % Low 39.0-50.0 [facility] Comment on above: Performed By: #### L [id number] #### [facility] ([facility]) [address] [place] [address] Hemoglobin (Bld) [Mass/Vol] 10.3 g/dL Low 13.0-17.0 [facility] Comment on above: Performed By: #### L [id number] #### [facility] ([facility] [address] [place] [address] MCH (RBC) [Entitic mass] 25.2 pg Low 27.0-33.0 [facility] Comment on above: Performed By: #### L [id number] #### [facility] ([facility]) [address] [place] [address] MCV (RBC) [Entitic vol] 82.4 fL Normal 82.0-98.0 [facility] Comment on above: Performed By: #### L [id number] #### [facility] ([facility] [address] [place] [address] PLATELETS (10*3/UL) IN BLOOD AUTOMATED COUNT 306 10*3/uL Normal 150-400 [facility] Comment on above: Performed By: #### L [id number] #### [facility] ([facility] [address] [place] [address] RBC (Bld) [#/Vol] 4.08 10*6/uL Low 4.20-5.70 [facility] Comment on above: Performed By: #### L [id number] #### [facility] (BEAKER) [address] [place] [address] WBC (Bld) [#/Vol] 12.04 10*3/uL High 4.00-10.60 [facility] Comment on above: Performed By: #### L [id number] #### [facility] ([facility]) [address] [place] [address] HPon 05-15-2025 HP -- Attestation signed by García Muir MD [...] Beth Age - 85 [facility]. [facility] 1940 [id number] Date of Admission - 05/10/2025 2:37 AM History of Present Illness Nadir Beth is an 85 y.o. male with a PMH of HFpEF, paroxysmal A-fib on Xarelto, CVA, T2DM, hypertension, renal artery stenosis left renal stent, and hyperlipidemia who was admitted as a direct transfer from [place] on 05/10/2025 for acute on chronic heart failure. 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 He presented to the ED on the advice of his physician following an increase in lower extremity edema with associated labs showing a BNP 6200. In the [place] ED he was found to have pulmonary vascular congestion with right sided pleural effusion on chest x-ray, and found to be hypertensive at 190/68, initially managed medically with lasix and antihypertensives prior to transfer. At [facility] echo was performed which was unable to [...] last 7 days Lab Units 05/15/25 03305/14/25 1528 05/13/25 0343 WBC AUTO 10*3/uL 12.04* [...] CO2 mmol/L 2 (more content not included)... Normal [facility] HP H&P reviewed. The patient [...] family members and they agreed to TAVR. [facility] NURSNOTEon 05-15-2025 NURSNOTE Report called to Karen OTERO on MICU. [facility] OPNOTEon 05-15-2025 OPNOTE TAVR Operative Note Date: 05/15/2025 Location: [facility] (Cath) Name: Nadir Beth, [...] the right common femoral artery using two 6-[place] ProGlide devices. Angio-Seal vascular closure in the left common femoral artery. Placement of SENTINEL cerebral embolic protection device. OPERATORS: Interventional Cardiology Infrastructure Architect: Claribel Cisneros MD Cardiac Surgery Infrastructure Architect: Negro Lopez MD Core Carrier Interventional Cardiology Infrastructure Architect: Aissatou Hughes METHODS: Procedure was explained to the patient with risks and benefits. he signed informed consent. he was brought to landscaping and groundskeeping laborer in a fasting state. The procedure was performed in the cardiac landscaping and groundskeeping laborer under conscious sedation. The right wrist area was prepped and draped in usual fashion. Access was obtained using ultrasound guidance and micropuncture technique in the right radial artery and a 6-[place] Islander x 11 cm Hydrophilic sheath was placed. Verapamil was given through the sheath. Both groin areas, and the right neck area were prepped and draped in usual fashion. Ultrasound guidance was used for micropuncture access in the right internal jugular vein and a 6-[place] x 11 cm introducer sheath was secured in place. Micropuncture technique and ultrasound guidance were used for access in the right common femoral artery and inner cannula angiography was performed followed by upsizing to a 6-[place] x 11 cm sheath. The same was done for the access in the left common femoral artery. At this time, we proceeded with the preclosure in the right common femoral artery using 2 crossing Perclose devices and the access was then upsized over a wire to a 10-[place] sheath. A 5-[place] balloon-tipped pacemaker wire was advanced through the internal jugular vein sheath to the right ventricular apex and adequate capture was confirmed. Heparin was given intravenously and therapeutic ACT confirmed during the rest of the procedure and additional heparin given as needed. Through the left common femoral sheath, an angled 6-[place] pigtail catheter was then advanced to the ascending aorta and placed in the noncoronary cusp. Aortic root angiography was performed in the coplanar view as determined by prior CT scan measurements. A 6-[place]er IM diagnostic catheter was then advanced through the right radial sheath and then navigated using an 0.035 inch wire to the ascending aorta and this was used to place an exchange length [place] 0.014 inch wire. The wire was advanced to the left carotid artery. A Broaddus device was then prepped using standard techniques and then advanced. The proximal filter was deployed in the innominate artery followed by deployment of the distal filter. The Broaddus device was then secured in place. The right common femoral access was then upsized using an exchange length Lunderquist wire [which was placed through a multipurpose catheter] to the 14-[place] Le E-sheath. The sheath was secured in place. A 6-[place] AL1 diagnostic catheter was advanced via the E-sheath, and using a straight stiff Glidewire, the aortic valve was crossed and the catheter was advanced in the left ventricular cavity, and using an exchange length J-wire, a 6-[place] angled pigtail catheter was advanced to make [...] The delivery c (more content not included)... Normal [facility] POCT GLUCOSE METER UNSOLICIT ED RESULTSon 05-15-2025 Glucose [Mass/Vol] 193 mg/dL High 70-105 [facility] Comment on above: Order Comment: Waive d Testing in the ED is performed under the ED CLIA certificate #[id number]. Result Comment: [email or web address] Performed By: #### L [id number] #### [facility] ([facility]) [address] [place] [address] Glucose [Mass/Vol] 334 mg/dL High 70-105 [facility] Comment on above: Order Comment: Patie nt had pre procedure medications already for cath Result Comment: [email or web address] Performed By: #### L [id number] ####[facility] ([facility] [place] [address] Glucose [Mass/Vol] 288 mg/dL High 70-105 [facility] Comment on above: Order Comment: Waive d Testing in the ED is performed under the ED CLIA certificate #[id number]. Result Comment: [email or web address] Performed By: #### L [id number] #### [facility] ([facility]) [address] [place] [address] Glucose [Mass/Vol] 351 mg/dL High 70-105 [facility] Comment on above: Order Comment: Waive d Testing in the ED is performed under the ED CLIA certificate #[id number]. Result Comment: clar com Performed By: #### L [id number] #### [facility] ([facility]) [address] [place] [address] 30on 05-14-2025 30 Daily Case Managemen t [...] is for patient to discharge to [facility] when medically ready. Diet: Dietary Orders (From admission, onward) Start Ordered 05/14/25 0631 Special Kitchen Request Once Comments: Omelet with green pepper, [place] cheese and onion, 1 slice wheat toast, [...] for OT? Answer: gait abnormality 05/10/25410 Normal [facility] 30 The patient is Moderately Stable [...] next 3 months Outcome: Progressing Normal [facility] APTTon 05-14-2025 ACTIVATED PARTIAL THROMBOPLASTIN TIME IN PPP BY COAGULATION ASSAY 57.1 Seconds High 25.0-35.0 [facility] Comment on above: Result Comment: Clin ical significance of the APTT is questionable in the presence of heparin. Performed By: #### L [id number] #### [facility] ([facility]) [address] [place] [address] ACTIVATED PARTIAL THROMBOPLASTIN TIME IN PPP BY COAGULATION ASSAY 33.6 Seconds Normal 25.0-35.0 [facility] Comment on above: Order Comment: Basel ine aPTT before initiating heparin infusion. Result Comment: Clin ical significance of the APTT is questionable in the presence of heparin. Performed By: #### L [id number] ####[facility] ([facility] [place] [address] BASIC METABOLIC PANELon 06-3 0-2024 Anion gap [Moles/Vol] 13 mmol/L Normal 7-20 [facility] Comment on above: Performed By: #### L [id number] #### [facility] ([facility]) [address] [place] [address] Calcium [Mass/Vol] 8.4 mg/dL Low 8.6-10.3 [facility] Comment on above: Performed By: #### L [id number] #### [facility] ([facility]) [address] [place] [address] Chloride [Moles/Vol] 100 mmol/L Normal 98-107 [facility] Comment on above: Performed By: #### L [id number] #### [facility] ([facility]) [address] [place] [address] CO2 [Moles/Vol] 29 mmol/L Normal 21-31 [facility] Comment on above: Performed By: #### L [id number] #### [facility] ([facility] [address] [place] [address] Creatinine [Mass/Vol] 1.74 mg/dL High 0.70-1.30 [facility] Comment on above: Performed By: #### L [id number] #### [facility] ([facility]) [address] [place] [address] GLOMERULAR FILTRATION RATE ML/MIN/1.73 SQ M.PREDICTED 37.7 mL/min/1.73m*2 Low >60.0 [facility] Comment on above: Result Comment: The [facility]???s estimated glomerular filtration rate (eGFR) will [...] individuals. Performed By: #### L [id number] #### [facility] ([facility]) [address] [place] [address] Glucose [Mass/Vol] 186 mg/dL High 70-100 [facility] Comment on above: Performed By: #### L [id number] #### [facility] ([facility]) [address] [place] [address] Potassium [Moles/Vol] 3.8 mmol/L Normal 3.5-5.1 [facility] Comment on above: Performed By: #### L [id number] #### [facility] ([facility]) [address] [place] [address] Sodium [Moles/Vol] 138 mmol/L Normal 136-145 [facility] Comment on above: Performed By: #### L [id number] #### [facility] ([facility]) [address] [place] [address] Urea nitrogen [Mass/Vol] 34 mg/dL High 7-25 [facility] Comment on above: Performed By: #### L [id number] #### [facility] ([facility]) [address] [place] [address] UREA NITROGEN/CREATININE (MASS RATIO) IN SER/PLAS 19.5 Normal [facility] Comment on above: Performed By: #### L [id number] #### [facility] ([facility]) [address] [place] [address] PLATELET COUNTon 05-14-2025 PLATELETS (10*3/UL) IN BLOOD AUTOMATED COUNT 297 10*3/uL Normal 150-400 [facility] Comment on above: Performed By: #### L [id number] #### [facility] ([facility]) [address] [place] [address] POCT GLUCOSE METER UNSOLICIT ED RESULTSon 05-14-2025 Glucose [Mass/Vol] 303 mg/dL High 70-105 [facility] Comment on above: Order Comment: Waive d Testing in the ED is performed under the ED CLIA certificate #[id number]. Result Comment: [email or web address] Performed By: #### L [id number] #### [facility] ([facility]) [address] [place] [address] Glucose [Mass/Vol] 254 mg/dL High 70-105 [facility] Comment on above: Order Comment: Waive d Testing in the ED is performed under the ED CLIA certificate #[id number]. Result Comment: [email or web address] Performed By: #### L [id number] #### [facility] ([facility]) [address] [place] [address] Glucose [Mass/Vol] 225 mg/dL High 70-105 [facility] Comment on above: Order Comment: Waive d Testing in the ED is performed under the ED CLIA certificate #[id number]. Result Comment: oope rac Performed By: #### L [id number] ####[facility] ([facility] [place] [address] Glucose [Mass/Vol] 209 mg/dL High 70-105 [facility] Comment on above: Order Comment: Waive d Testing in the ED is performed under the ED CLIA certificate #[id number]. Result Comment: oope rac Performed By: #### L [id number] ####[facility] ([facility] [place] [address] 30on 05-13-2025 30 The patient is Moderately [...] next 3 months Outcome: Progressing Normal [facility] BASIC METABOLIC PANELon - Anion gap [Moles/Vol] 14 mmol/L Normal 7-20 [facility] Comment on above: Performed By: #### L [id number] #### [facility] ([facility]) [address] [place] [address] Calcium [Mass/Vol] 8.5 mg/dL Low 8.6-10.3 [facility] Comment on above: Performed By: #### L [id number] #### [facility] ([facility]) [address] [place] [address] Chloride [Moles/Vol] 99 mmol/L Normal 98-107 [facility] Comment on above: Performed By: #### L [id number] #### [facility] ([facility]) [address] [place] [address] CO2 [Moles/Vol] 29 mmol/L Normal 21-31 [facility] Comment on above: Performed By: #### L [id number] #### [facility] ([facility]) [address] [place] [address] Creatinine [Mass/Vol] 1.65 mg/dL High 0.70-1.30 [facility] Comment on above: Performed By: #### L [id number] #### [facility] ([facility] [address] [place] [address] GLOMERULAR FILTRATION RATE ML/MIN/1.73 SQ M.PREDICTED 40.2 mL/min/1.73m*2 Low >60.0 [facility] Comment on above: Result Comment: The [facility]???s estimated glomerular filtration rate (eGFR) will [...] individuals. Performed By: #### L [id number] #### [facility] ([facility]) [address] [place] [address] Glucose [Mass/Vol] 206 mg/dL High 70-100 [facility] Comment on above: Performed By: #### L [id number] #### [facility] ([facility]) [address] [place] [address] Potassium [Moles/Vol] 3.5 mmol/L Normal 3.5-5.1 [facility] Comment on above: Performed By: #### L [id number] #### [facility] ([facility]) [address] [place] [address] Sodium [Moles/Vol] 138 mmol/L Normal 136-145 [facility] Comment on above: Performed By: #### L [id number] #### [facility] ([facility] [address] [place] [address] Urea nitrogen [Mass/Vol] 32 mg/dL High 7-25 [facility] Comment on above: Performed By: #### L [id number] #### [facility] ([facility]) [address] [place] [address] UREA NITROGEN/CREATININE (MASS RATIO) IN SER/PLAS 19.4 Normal [facility] Comment on above: Performed By: #### L [id number] #### [facility] ([facility] [address] [place] [address] CBCon 05-13-2025 Erythrocyte distribution width (RBC) [Ratio] 18.9 % High 11.5-15.0 [facility] Comment on above: Performed By: #### L [id number] #### [facility] ([facility]) [address] [place] [address] ERYTHROCYTE MEAN CORPUSCULAR HEMOGLOBIN CONCENTRATION (G/DL) BY AUTOMATED 31.3 g/dL Low 32.0-35.0 [facility] Comment on above: Performed By: #### L [id number] #### [facility] ([facility]) [address] [place] [address] Hematocrit (Bld) [Volume fraction] 31.3 % Low 39.0-50.0 [facility] Comment on above: Performed By: #### L [id number] #### [facility] ([facility]) [address] [place] [address] Hemoglobin (Bld) [Mass/Vol] 9.8 g/dL Low 13.0-17.0 [facility] Comment on above: Performed By: #### L [id number] #### [facility] ([facility]) [address] [place] [address] MCH (RBC) [Entitic mass] 25.8 pg Low 27.0-33.0 [facility] Comment on above: Performed By: #### L [id number] #### [facility] ([facility] [address] [place] [address] MCV (RBC) [Entitic vol] 82.4 fL Normal 82.0-98.0 [facility] Comment on above: Performed By: #### L [id number] #### [facility] ([facility] [address] [place] [address] PLATELETS (10*3/UL) IN BLOOD AUTOMATED COUNT 287 10*3/uL Normal 150-400 [facility] Comment on above: Performed By: #### L [id number] #### [facility] ([facility] [address] [place] [address] RBC (Bld) [#/Vol] 3.80 10*6/uL Low 4.20-5.70 [facility] Comment on above: Performed By: #### L [id number] #### [facility] ([facility]) [address] [place] [address] WBC (Bld) [#/Vol] 10.18 10*3/uL Normal 4.00-10.60 [facility] Comment on above: Performed By: #### L [id number] #### [facility] ([facility]) [address] [place] [address] POCT GLUCOSE METER UNSOLICIT ED RESULTSon 05-13-2025 Glucose [Mass/Vol] 219 mg/dL High 70-105 [facility] Comment on above: Order Comment: Waive d Testing in the ED is performed under the ED CLIA certificate #[id number]. Result Comment: [email or web address] Performed By: #### L [id number] #### [facility] ([facility]) [address] [place] [address] Glucose [Mass/Vol] 277 mg/dL High 70-105 [facility] Comment on above: Order Comment: Patikee nt had pre procedure medications already for cath Result Comment: [email or web address] Performed By: #### L [id number] ####[facility] ([facility])[address] [place] [address] Glucose [Mass/Vol] 274 mg/dL High 70-105 [facility] Comment on above: Order Comment: Waive d Testing in the ED is performed under the ED CLIA certificate #[id number]. Result Comment: [email or web address] Performed By: #### L [id number] #### [facility] ([facility]) [address] [place] [address] Glucose [Mass/Vol] 222 mg/dL High 70-105 [facility] Comment on above: Order Comment: Waive d Testing in the ED is performed under the ED CLIA certificate #[id number]. Result Comment: [email or web address] Performed By: #### L [id number] #### [facility] ([facility]) [address] [place] [address] 30on 05-12-2025 30 The patient is Moderately Stable - Low risk of patient condition declining or worsening The patient's goals for the shift include Comfort, rest The clinical goals for the shift include Stable vitals, comfort Normal [facility] 30 The patient is Moderately Stable [...] next 3 months Outcome: Progressing Normal [facility] 30 The patient is Moderately Stable [...] next 3 months Outcome: Progressing Normal [facility] ANTI-XA (HEPARIN LEVEL)on HEPARIN UNFRACTIONATED (U/ML) IN PPP BY CHROMOGENIC METHOD 0.32 IU/mL Normal 0.3-0.7 [facility] Comment on above: Result Comment: [place] roxaban and Apixaban will interfere with the anti Xa assay used to monitor UFH and LMWH. Performed By: #### L [id number] #### [facility] ([facility]) [address] [place] [address] HEPARIN UNFRACTIONATED (U/ML) IN PPP BY CHROMOGENIC METHOD 0.42 IU/mL Normal 0.3-0.7 [facility] Comment on above: Result Comment: [place] roxaban and Apixaban will interfere with the anti Xa assay used to monitor UFH and LMWH. Performed By: #### L [id number] ####[facility] ([facility])[address] [place] [address] BASIC METABOLIC PANELon 06-2 Anion gap [Moles/Vol] 14 mmol/L Normal 7-20 [facility] Comment on above: Performed By: #### L [id number] ####[facility] ([facility])[address] [place] [address] Calcium [Mass/Vol] 8.5 mg/dL Low 8.6-10.3 [facility] Comment on above: Performed By: #### L [id number] ####[facility] ([facility])[address] [place] [address] Chloride [Moles/Vol] 99 mmol/L Normal 98-107 [facility] Comment on above: Performed By: #### L [id number] ####[facility] ([facility])[address] [place] [address] CO2 [Moles/Vol] 29 mmol/L Normal 21-31 [facility] Comment on above: Performed By: #### L [id number] ####[facility] ([facility])[address] [place] [address] Creatinine [Mass/Vol] 1.63 mg/dL High 0.70-1.30 [facility] Comment on above: Performed By: #### L [id number] ####[facility] ([facility] [place] [address] GLOMERULAR FILTRATION RATE ML/MIN/1.73 SQ M.PREDICTED 40.8 mL/min/1.73m*2 Low >60.0 [facility] Comment on above: Result Comment: The [facility]???s estimated glomerular filtration rate (eGFR) will [...] of individuals. Performed By: #### L [id number] ####[facility] ([facility] [place] [address] Glucose [Mass/Vol] 191 mg/dL High 70-100 [facility] Comment on above: Performed By: #### L [id number] ####[facility] ([facility] [place] [address] Potassium [Moles/Vol] 3.5 mmol/L Normal 3.5-5.1 [facility] Comment on above: Performed By: #### L [id number] ####[facility] ([facility])[address] [place] [address] Sodium [Moles/Vol] 138 mmol/L Normal 136-145 [facility] Comment on above: Performed By: #### L [id number] ####[facility] ([facility])[address] [place] [address] Urea nitrogen [Mass/Vol] 36 mg/dL High 7-25 [facility] Comment on above: Performed By: #### L [id number] ####[facility] ([facility])[address] [place] [address] UREA NITROGEN/CREATININE (MASS RATIO) IN SER/PLAS 22.1 [facility] Comment on above: Performed By: #### L [id number] ####[facility] ([facility] [place] [address] POCT GLUCOSE METER UNSOLICIT ED RESULTSon 05-12-2025 Glucose [Mass/Vol] 275 mg/dL High 70-105 [facility] Comment on above: Order Comment: Waive d Testing in the ED is performed under the ED CLIA certificate #[id number]. Result Comment: [email or web address] Performed By: #### L [id number] ####[facility] ([facility] [place] [address] Glucose [Mass/Vol] 285 mg/dL High 70-105 [facility] Comment on above: Order Comment: Waive d Testing in the ED is performed under the ED CLIA certificate #[id number]. Result Comment: [email or web address] [email or web address] Performed By: #### L [id number] #### [facility] ([facility]) [address] [place] [address] Glucose [Mass/Vol] 332 mg/dL High 70-105 [facility] Comment on above: Order Comment: Waive d Testing in the ED is performed under the ED CLIA certificate #[id number]. Result Comment: [email or web address] [email or web address] Performed By: #### L [id number] #### [facility] ([facility]) [address] [place] [address] Glucose [Mass/Vol] 214 mg/dL High 70-105 [facility] Comment on above: Order Comment: Waive d Testing in the ED is performed under the ED CLIA certificate #[id number]. Result Comment: [email or web address] [email or web address] Performed By: #### L [id number] #### [facility] ([facility] [address] [place] [address] 30on 05-11-2025 30 The patient is Moderately Stable - Low risk of patient condition declining or worsening The patient's goals for the shift include comfort rest The clinical goals for the shift include VSS Over the shift, the patient did not make progress toward the following goals. Barriers to progression include. Recommendations to address these barriers include. Normal [facility] ANTI-XA (HEPARIN LEVEL)on HEPARIN UNFRACTIONATED (U/ML) IN PPP BY CHROMOGENIC METHOD 0.27 IU/mL Low 0.3-0.7 [facility] Comment on above: Result Comment: [place] roxaban and Apixaban will interfere with the anti Xa assay used to monitor UFH and LMWH. Performed By: #### L [id number] #### [facility] ([facility]) [address] [place] [address] HEPARIN UNFRACTIONATED (U/ML) IN PPP BY CHROMOGENIC METHOD 0.38 IU/mL Normal 0.3-0.7 [facility] Comment on above: Result Comment: [place] roxaban and Apixaban will interfere with the anti Xa assay used to monitor UFH and LMWH. Performed By: #### L [id number] ####[facility] ([facility])[address] [place] [address] HEPARIN UNFRACTIONATED (U/ML) IN PPP BY CHROMOGENIC METHOD 0.28 IU/mL Low 0.3-0.7 [facility] Comment on above: Result Comment: [place] roxaban and Apixaban will interfere with the anti Xa assay used to monitor UFH and LMWH. Performed By: #### L [id number] ####[facility] ([facility])[address] [place] [address] BASIC METABOLIC PANELon -2 Anion gap [Moles/Vol] 15 mmol/L Normal 7-20 [facility] Comment on above: Performed By: #### L [id number] #### [facility] ([facility] [address] [place] [address] Calcium [Mass/Vol] 8.4 mg/dL Low 8.6-10.3 [facility] Comment on above: Performed By: #### L [id number] #### [facility] ([facility]) [address] [place] [address] Chloride [Moles/Vol] 101 mmol/L Normal 98-107 [facility] Comment on above: Performed By: #### L [id number] #### [facility] ([facility]) [address] [place] [address] CO2 [Moles/Vol] 28 mmol/L Normal 21-31 [facility] Comment on above: Performed By: #### L [id number] #### [facility] ([facility]) [address] [place] [address] Creatinine [Mass/Vol] 1.56 mg/dL High 0.70-1.30 [facility] Comment on above: Performed By: #### L [id number] #### [facility] ([facility]) [address] [place] [address] GLOMERULAR FILTRATION RATE ML/MIN/1.73 SQ M.PREDICTED 43.0 mL/min/1.73m*2 Low >60.0 [facility] Comment on above: Result Comment: The [facility]???s estimated glomerular filtration rate (eGFR) will [...] individuals. Performed By: #### L [id number] #### [facility] ([facility]) [address] [place] [address] Glucose [Mass/Vol] 237 mg/dL High 70-100 [facility] Comment on above: Performed By: #### L [id number] #### [facility] ([facility]) [address] [place] [address] Potassium [Moles/Vol] 4.2 mmol/L Normal 3.5-5.1 [facility] Comment on above: Performed By: #### L [id number] #### [facility] ([facility]) [address] [place] [address] Sodium [Moles/Vol] 140 mmol/L Normal 136-145 [facility] Comment on above: Performed By: #### L [id number] #### [facility] ([facility]) [address] [place] [address] Urea nitrogen [Mass/Vol] 31 mg/dL High 7-25 [facility] Comment on above: Performed By: #### L [id number] #### [facility] ([facility] [address] [place] [address] UREA NITROGEN/CREATININE (MASS RATIO) IN SER/PLAS 19.9 Normal [facility] Comment on above: Performed By: #### L [id number] #### [facility] ([facility] [address] [place] [address] CBCon 05-11-2025 Erythrocyte distribution width (RBC) [Ratio] 19.0 % High 11.5-15.0 [facility] Comment on above: Performed By: #### L [id number] #### [facility] ([facility] [address] [place] [address] ERYTHROCYTE MEAN CORPUSCULAR HEMOGLOBIN CONCENTRATION (G/DL) BY AUTOMATED 31.1 g/dL Low 32.0-35.0 [facility] Comment on above: Performed By: #### L [id number] #### [facility] ([facility] [address] [place] [address] Hematocrit (Bld) [Volume fraction] 31.8 % Low 39.0-50.0 [facility] Comment on above: Performed By: #### L [id number] #### [facility] ([facility] [address] [place] [address] Hemoglobin (Bld) [Mass/Vol] 9.9 g/dL Low 13.0-17.0 [facility] Comment on above: Performed By: #### L [id number] #### [facility] ([facility] [address] [place] [address] MCH (RBC) [Entitic mass] 25.8 pg Low 27.0-33.0 [facility] Comment on above: Performed By: #### L [id number] #### [facility] ([facility]) [address] [place] [address] MCV (RBC) [Entitic vol] 82.8 fL Normal 82.0-98.0 [facility] Comment on above: Performed By: #### L [id number] #### [facility] ([facility] [address] [place] [address] PLATELETS (10*3/UL) IN BLOOD AUTOMATED COUNT 312 10*3/uL Normal 150-400 [facility] Comment on above: Performed By: #### L [id number] #### [facility] ([facility] [address] [place] [address] RBC (Bld) [#/Vol] 3.84 10*6/uL Low 4.20-5.70 [facility] Comment on above: Performed By: #### L [id number] #### [facility] (BEAKER) [address] [address] WBC (Bld) [#/Vol] 11.58 10*3/uL High 4.00-10.60 [facility] Comment on above: Performed By: #### L [id number] #### [facility] ([facility]) [address] [place] [address] CONSULTon 05-11-2025 CONSULT Reason For Consult aortic stenosis Referring Provider: Mesha Hughes MD History Of Present Illness Nadir Beth is a 85 y.o. male presenting with acute on chronic heart failure. He was found to have a BMP greater than [address] Youssef's office in [place] yesterday. He also had signs of congestive [...] leg paresis. He saw Dr. Garcia at [facility] and was told that it was [...] 164 (more content not included)... Normal [facility] CTA ABDOMEN PELVIS W IV CONT RASTon 05-11-2025 CTA ABDOMEN PELVIS W IV CONTRAST [...] Electronically signed: Yenni Stafford MD. Normal [facility] Comment on above: Order Comment: Low d ose (half) contrast HEMOGLOBIN A1Con 05-11-2025 Glucose [Mass/Vol] 220 mg/dL Normal [facility] Comment on above: Performed By: #### L [id number] #### [facility] ([facility]) [address] [facility] [place] [place] [address] HbA1c (Bld) [Mass fraction] 9.3 % High 4.0-6.0 [facility] Comment on above: Performed By: #### L [id number] #### [facility] ([facility]) [address] [place] [address] HPon 05-11-2025 Reason For Consult aortic stenosis Referring Provider: Mesha Hughes MD History Of Present Illness Nadir Beth is a 85 y.o. male presenting with acute on chronic heart failure. He was found to have a BMP greater than [address] Youssef's office in [place] yesterday. He also had signs of congestive [...] leg paresis. He saw Dr. Garcia at [facility] and was told that it was [...] 164 (more content not included)... Normal [facility] HP H&P reviewed. The patient was examined and there are no changes to the H&P. Will proceed with RHC and coronary angiogram for acute on chronic HFpEF and aortic stenosis work up. Normal [facility] LIPID PANELon 05-11-2025 CHOL/HDL 2.7 mg/dL Normal [facility] Comment on above: Performed By: #### L [id number] ####[facility] [place] [address] Cholesterol [Mass/Vol] 187 mg/dL Normal 120-200 [facility] Comment on above: Performed By: #### L [id number] ####[facility] ([facility] [place] [address] Magnesium [Mass/Vol] 93 mg/dL Normal <150 [facility] Comment on above: Result Comment: TRIG LYCERIDE REFERENCE RANGE: 20 YEARS AND OLDER CARDIOVASCULAR RISK LESS THAN 150 mg/dL LOW RISK 150 TO 199 mg/dL BORDERLINE RISK 200 mg/dL AND GREATER HIGH RISK Performed By: #### L [id number] ####[facility] ([facility] [place] [address] Magnesium [Mass/Vol] 99 mg/dL Normal 0-160 [facility] Comment on above: Performed By: #### L [id number] ####[facility] ([facility] [place] [address] Magnesium [Mass/Vol] 69 mg/dL Normal 23-92 [facility] Comment on above: Performed By: #### L [id number] ####[facility] ([facility])[address] [place] [address] NON HDL CHOL. (LDL+VLDL) 118 Normal [facility] Comment on above: Performed By: #### L [id number] ####[facility] ([facility])[address] [facility] [place] [address] TOTAL VLDL-C 19 mg/dL Normal 0-40 [facility] Comment on above: Performed By: #### L [id number] ####[facility] ([facility])[address] [facility] [place] [address] POCT GLUCOSE METER UNSOLICIT ED RESULTSon 05-11-2025 Glucose [Mass/Vol] 306 mg/dL High 70-105 [facility] Comment on above: Order Comment: Waive d Testing in the ED is performed under the ED CLIA certificate #[id number]. Result Comment: devon [email or web address] Performed By: #### L [id number] ####[facility] ([facility]ER)[address] [place] [address] Glucose [Mass/Vol] 348 mg/dL High 70-105 [facility] Comment on above: Order Comment: Waive d Testing in the ED is performed under the ED CLIA certificate #[id number]. Result Comment: clar com Performed By: #### L [id number] #### [facility] ([facility]) [address] [place] [address] Glucose [Mass/Vol] 201 mg/dL High 70-105 [facility] Comment on above: Order Comment: Waive d Testing in the ED is performed under the ED CLIA certificate #[id number]. Result Comment: clar com Performed By: #### L [id number] #### [facility] ([facility]) [address] [place] [address] Glucose [Mass/Vol] 224 mg/dL High 70-105 [facility] Comment on above: Order Comment: Kim nt had pre procedure medications already for cath Result Comment: clar com Performed By: #### L [id number] ####[facility] ([facility])[address] [place] [address] 30on 05-10-2025 30 The patient is Moderately [...] next 3 months Outcome: Progressing Normal [facility] 30 The patient is Moderately Stable - Low risk of patient condition declining or worsening The patient's goals for the shift include comfort The clinical goals for the shift include VSS Normal [facility] ANTI-XA (HEPARIN LEVEL)on HEPARIN UNFRACTIONATED (U/ML) IN PPP BY CHROMOGENIC METHOD 0.25 IU/mL Low 0.3-0.7 [facility] Comment on above: Result Comment: Jessica roxaban and Apixaban will interfere with the anti Xa assay used to monitor UFH and LMWH. Performed By: #### L [id number] #### [facility] ([employer]) [address] [place] [address] HEPARIN UNFRACTIONATED (U/ML) IN PPP BY CHROMOGENIC METHOD 0.21 IU/mL Low 0.3-0.7 [facility] Comment on above: Order Comment: Check anti-Xa level every 6 hours while on heparin infusion, or per protocol. Result Comment: Jessica roxaban and Apixaban will interfere with the anti Xa assay used to monitor UFH and LMWH. Performed By: #### L [id number] ####[facility] ([employer])[address] [place] [address] APTTon 05-10-2025 ACTIVATED PARTIAL THROMBOPLASTIN TIME IN PPP BY COAGULATION ASSAY 34.1 Seconds Normal 25.0-35.0 [facility] Comment on above: Order Comment: Basel ine aPTT before initiating heparin infusion. Result Comment: Clin ical significance of the APTT is questionable in the presence of heparin. Performed By: #### L [id number] #### [facility] ([employer]) [address] [place] [address] B-TYPE NATRIURETIC PEPTIDEon 05-10-2025 Natriuretic peptide B (Bld) [Mass/Vol] 736 pg/mL High 0-100 [facility] Comment on above: Performed By: #### L [id number] #### [facility] ([facility]) [address] [place] [address] CBC WITH AUTO DIFFERENTIALon 05-10-2025 Basophils (Bld) [#/Vol] 0.04 10*3/uL Normal 0.00-0.20 [facility] Comment on above: Performed By: #### L [id number] #### [facility] ([facility]) [address] [place] [address] Basophils/100 WBC (Bld) 0.4 % Normal 0.0-1.0 [facility] Comment on above: Performed By: #### L [id number] #### [facility] ([facility]) [address] [place] [address] Eosinophils (Bld) [#/Vol] 0.15 10*3/uL Normal 0.00-0.50 [facility] Comment on above: Performed By: #### L [id number] #### [facility] ([facility]) [address] [place] [address] Eosinophils/100 WBC (Bld) 1.4 % Normal 0.0-6.0 [facility] Comment on above: Performed By: #### L [id number] #### [facility] ([facility]) [address] [place] [address] Erythrocyte distribution width (RBC) [Ratio] 19.2 % High 11.5-15.0 [facility] Comment on above: Performed By: #### L [id number] #### [facility] ([facility] [address] [place] [address] ERYTHROCYTE MEAN CORPUSCULAR HEMOGLOBIN CONCENTRATION (G/DL) BY AUTOMATED 31.2 g/dL Low 32.0-35.0 [facility] Comment on above: Performed By: #### L [id number] #### [facility] ([facility] [address] [place] [address] Hematocrit (Bld) [Volume fraction] 33.3 % Low 39.0-50.0 [facility] Comment on above: Performed By: #### L [id number] #### [facility] ([facility] [address] [place] [address] Hemoglobin (Bld) [Mass/Vol] 10.4 g/dL Low 13.0-17.0 [facility] Comment on above: Performed By: #### L [id number] #### [facility] ([facility]) [address] [place] [address] Immature granulocytes (Bld) [#/Vol] 0.06 10*3/uL Normal 0.00-0.20 [facility] Comment on above: Performed By: #### L [id number] #### [facility] ([facility]) [address] [place] [address] Immature granulocytes/100 WBC (Bld) 0.6 % Normal 0.0-1.0 [facility] Comment on above: Performed By: #### L [id number] #### [facility] ([facility]) [address] [place] [address] Lymphocytes (Bld) [#/Vol] 0.86 10*3/uL Low 1.20-4.00 [facility] Comment on above: Performed By: #### L [id number] #### [facility] ([facility] [address] [place] [address] Lymphocytes/100 WBC (Bld) 8.2 % Low 20.0-45.0 [facility] Comment on above: Performed By: #### L [id number] #### [facility] ([facility] [address] [place] [address] MCH (RBC) [Entitic mass] 25.7 pg Low 27.0-33.0 [facility] Comment on above: Performed By: #### L [id number] #### [facility] ([facility]) [address] [place] [address] MCV (RBC) [Entitic vol] 82.2 fL Normal 82.0-98.0 [facility] Comment on above: Performed By: #### L [id number] #### [facility] ([facility]) [address] [place] [address] Monocytes (Bld) [#/Vol] 1.08 10*3/uL High 0.10-1.00 [facility] Comment on above: Performed By: #### L [id number] #### [facility] ([facility]) [address] [place] [address] Monocytes/100 WBC (Bld) 10.3 % Normal 5.0-12.0 [facility] Comment on above: Performed By: #### L [id number] #### [facility] ([facility]) [address] [place] [address] Neutrophils (Bld) [#/Vol] 8.31 10*3/uL High 1.60-7.60 [facility] Comment on above: Performed By: #### L [id number] #### [facility] ([facility]) [address] [place] [address] Neutrophils/100 WBC (Bld) 79.1 % High 40.0-72.0 [facility] Comment on above: Performed By: #### L [id number] #### [facility] ([facility]) [address] [place] [address] NRBC (PER 100 WBCS) BY AUTOMATED COUNT 0.0 % Normal 0 [facility] Comment on above: Performed By: #### L [id number] #### [facility] ([facility]) [address] [place] [address] PLATELETS (10*3/UL) IN BLOOD AUTOMATED COUNT 311 10*3/uL Normal 150-400 [facility] Comment on above: Performed By: #### L [id number] #### [facility] ([facility]) [address] [place] [address] RBC (Bld) [#/Vol] 4.05 10*6/uL Low 4.20-5.70 [facility] Comment on above: Performed By: #### L [id number] #### [facility] ([facility] [address] [place] [address] WBC (Bld) [#/Vol] 10.50 10*3/uL Normal 4.00-10.60 [facility] Comment on above: Performed By: #### L [id number] #### [facility] ([facility]) [address] [place] [address] COMPREHENSIVE METABOLIC PANE Jaren 05-10-2025 Albumin [Mass/Vol] 3.5 g/dL Normal 3.5-5.7 [facility] Comment on above: Performed By: #### L [id number] ####[facility] ([facility] [place] [address] ALP [Catalytic activity/Vol] 72 U/L Normal 34-104 [facility] Comment on above: Performed By: #### L [id number] ####[facility] ([facility])[address] [place] [address] ALT [Catalytic activity/Vol] 7 U/L Normal 7-52 [facility] Comment on above: Performed By: #### L [id number] ####[facility] ([facility])[address] [place] [address] Anion gap [Moles/Vol] 16 mmol/L Normal 7-20 [facility] Comment on above: Performed By: #### L [id number] ####[facility] ([facility] [place] [address] AST [Catalytic activity/Vol] 14 U/L Normal 13-39 [facility] Comment on above: Performed By: #### L [id number] ####[facility] ([facility])[address] [place] [address] Bilirubin [Mass/Vol] 0.4 mg/dL Normal 0.3-1.0 [facility] Comment on above: Performed By: #### L [id number] ####[facility] ([facility])[address] [place] [address] Calcium [Mass/Vol] 8.5 mg/dL Low 8.6-10.3 [facility] Comment on above: Performed By: #### L [id number] ####[facility] ([facility])[address] [place] [address] Chloride [Moles/Vol] 101 mmol/L Normal 98-107 [facility] Comment on above: Performed By: #### L [id number] ####[facility] ([facility] [place] [address] CO2 [Moles/Vol] 26 mmol/L Normal 21-31 [facility] Comment on above: Performed By: #### L [id number] ####[facility] ([facility])[address] [place] [address] Creatinine [Mass/Vol] 1.45 mg/dL High 0.70-1.30 [facility] Comment on above: Performed By: #### L [id number] ####[facility] ([facility])[address] [place] [address] GLOMERULAR FILTRATION RATE ML/MIN/1.73 SQ M.PREDICTED 46.9 mL/min/1.73m*2 Low >60.0 [facility] Comment on above: Result Comment: The [facility]???s estimated glomerular filtration rate (eGFR) will [...] of individuals. Performed By: #### L [id number] ####[facility] ([facility])[address] [place] [address] Glucose [Mass/Vol] 156 mg/dL High 70-100 [facility] Comment on above: Performed By: #### L [id number] ####[facility] (BEAKER)[address] [place] [address] Potassium [Moles/Vol] 3.6 mmol/L Normal 3.5-5.1 [facility] Comment on above: Performed By: #### L [id number] ####[facility] ([facility])[address] [place] [address] Protein [Mass/Vol] 6.2 g/dL Normal 6.0-8.3 [facility] Comment on above: Performed By: #### L [id number] ####[facility] ([facility])[address] [place] [address] Sodium [Moles/Vol] 139 mmol/L Normal 136-145 [facility] Comment on above: Performed By: #### L [id number] ####[facility] ([facility])[address] [place] [address] Urea nitrogen [Mass/Vol] 28 mg/dL High 7-25 [facility] Comment on above: Performed By: #### L [id number] ####[facility] ([facility])[address] [place] [address] UREA NITROGEN/CREATININE (MASS RATIO) IN SER/PLAS 19.3 [facility] Comment on above: Performed By: #### L [id number] ####[facility] ([facility])[address] [place] [address] CONSULTon 05-10-2025 CONSULT discharge planning: to return to [facility] Patient came to this admission from [facility]. - Occupational Therapy Eval noting Patient is able to return to prior living environment - Physical Therapy Eval noting Patient is able to return to prior living environment - LDAs tab not listing any open wounds or closed skin issues - I/O wVital flowsheet noting Patient on Room Air at this [facility] - to [facility]; Erin confirmed Patient is from their facility, specifically their [facility] unit (not ECF or JAIL) discharge barriers: [] no insurance precert needed for any placement from this admission [] Normal [facility] CONSULT -- Attestation signed by Azeem Green MD at 05/10/2025 7:15 PM I personally saw and evaluated the patient on rounds with the medical records specialist and agree with his assessment and plan as documented in the progress note from today Cardiology Consult Note Reason for Consult: Acute on chronic HFpEF, hypertensive urgency HPI: Nadir Beth is a 85 y.o. male with past medical history of A-fib on Xarelto, hypertension, HFpEF, CKD, recent history of CVA 4 months back, renal artery stenosis transferred from [facility] for acute on chronic heart failure. Patient had history of stroke 4 months back and was in rehab patient has been having progressive lower extremity edema for few days. Patient was advised to increase his Lasix from 20 to 40 mg and blood work was done which showed BNP 6214 and was advised to go to the ED. In [place] ED chest x-ray showed pulmonary vascular congestion [...] Palp (more content not included)... Normal [facility] CONSULT Adult Nutrition Assessment: Name: Nadir [...] of Nutrition and Dietetics (AND) and the [place] [employer] of Enteral and Parenteral Nutrition (ASPEN). [...] To reach the Clinical Dietitian, please utilize [employer] chat Wednesday-Wednesday from 8AM-4PM or call extension [phone]. For weekends (Wednesday-Wednesday) and holidays, the Clinical Dietitian can be reached via pager ([phone]) from 9AM-3PM. The Clinical Nutrition Department is unable to respond to [employer] chat messages on Sundays and . [1] History reviewed. No pertinent past medical history. [2] Allergies Allergen Reactions Aminolevulinic Acid Hcl Unknown Iodinated Contrast Media Unknown Nitroglycerin Other hypotension Simvastatin Unknown Normal [facility] Documentationon 05-10-2025 Documentation [id number] Nadir Beth 1940 M Date Provider Department Center 05/10/[id number] KAUFFMAN [facility] INT MED Comprehensiv Family History Problem Relation Age of Onset Coronary artery disease Father Family Status - Relation Status Age at Mother Father Normal [facility] HIGH SENSITIVITY TROPONIN Io n 05-10-2025 HS TROPONIN I (NG/L) 26 ng/L High <20 [facility] Comment on above: Performed By: #### L [id number] ####[facility] ([facility])[address] [place] [address] HS TROPONIN I (NG/L) 21 ng/L High <20 [facility] Comment on above: Performed By: #### L [id number] ####[facility] ([facility]AKER)[address] [place] [address] HS TROPONIN I (NG/L) 21 ng/L High <20 [facility] Comment on above: Performed By: #### L [id number] ####[facility] ([facility]ER)[address] [place] [address] [facility] 05-10-2025 -- Attestation signed by Azeem Green MD at 05/10/2025 7:15 PM I personally saw and evaluated the patient on rounds with the medical records specialist and agree with his assessment and plan as documented in the progress note from today Cardiology Consult Note Reason for Consult: Acute on chronic HFpEF, hypertensive urgency HPI: Nadir Beth is a 85 y.o. male with past medical history of A-fib on Xarelto, hypertension, HFpEF, CKD, recent history of CVA 4 months back, renal artery stenosis transferred from [facility] for acute on chronic heart failure. Patient had history of stroke 4 months back and was in rehab patient has been having progressive lower extremity edema for few days. Patient was advised to increase his Lasix from 20 to 40 mg and blood work was done which showed BNP 6214 and was advised to go to the ED. In [place] ED chest x-ray showed pulmonary vascular congestion [...] Palp (more content not included)... Normal [facility] MAGNESIUMon 05-10-2025 Magnesium [Mass/Vol] 2.0 mg/dL Normal 1.9-2.7 [facility] Comment on above: Performed By: #### L [id number] ####[facility] (BEAKER)[address] [place] [address] PLATELET COUNTon 05-10-2025 PLATELETS (10*3/UL) IN BLOOD AUTOMATED COUNT 349 10*3/uL Normal 150-400 [facility] Comment on above: Performed By: #### L [id number] #### [facility] (BEAKER) [address] [place] [address] POCT GLUCOSE METER UNSOLICIT ED RESULTSon 05-10-2025 Glucose [Mass/Vol] 237 mg/dL High 70-105 [facility] Comment on above: Order Comment: Waive d Testing in the ED is performed under the ED CLIA certificate #[id number]. Result Comment: devon [email or web address] Performed By: #### L [id number] #### [facility] (BEGripeO) [address] [place] [address] Glucose [Mass/Vol] 159 mg/dL High 70-105 [facility] Comment on above: Order Comment: Waive d Testing in the ED is performed under the ED CLIA certificate #[id number]. Result Comment: iseg [email or web address] Performed By: #### L [id number] #### [facility] (Bloglovin) [address] [place] [address] Glucose [Mass/Vol] 172 mg/dL High 70-105 [facility] Comment on above: Order Comment: Waive d Testing in the ED is performed under the ED CLIA certificate #[id number]. Result Comment: iseg [email or web address] Performed By: #### L [id number] ####[facility] (Bloglovin)[address] [facility] [place] [address] Glucose [Mass/Vol] 186 mg/dL High 70-105 [facility] Comment on above: Order Comment: Waive d Testing in the ED is performed under the ED CLIA certificate #[id number]. Result Comment: iseg [email or web address] Performed By: #### L [id number] #### [facility] (Bloglovin) [address] [place] [address] TSH3 REFLEX TO FT4on 025 THYROTROPIN (MIU/L) IN SER/PLAS BY DETECTION LIMIT <= 0.05 MIU/L 1.34 mIU/L Normal 0.34-5.60 [facility] Comment on above: Performed By: #### L [id number] #### [facility] (Bloglovin) [address] [place] [address] 36on 05-08-2025 36 Patient is reschedul ed for 07/11. Normal [facility] 36on 05-04-2025 36 Lvm to reschedule patients nephrology appointment. Advised at this time, the appointment will be cancelled and to call back to reschedule. Normal [facility] Telephoneon 05-04-2025 Telephone [id number] Nadir Beth 1940 M Date Provider Department Center 05/04/2025 RUTHIE OWEN [facility] NEPHRO Comprehensiv Family History Problem Relation Age of Onset Coronary artery disease Father Family Status - Relation Status Age at Mother Father Normal [facility] Coding Queryon 05-02-2025 Coding Query Coding Query From: Alberto OTERO, Lay To: Anai URIARTE; Cc: Ginny Talamantes; Sent: 04/30/2025 07:31:14 EDT ! Subject: Coding Query Due Date/Time: 05/01/2025 07:30:00 EDT Caller Name: NADIR BETH; Caller Number: Sergio , Documentation in the medical record indicates this patient has been admitted with or diagnosed as having: Altered mental status The following is also documented in the medical record: dc [id number]-[id number]-old male who was admitted to the hospital [...] Name: NADIR BETH; Caller Number: H , m MRI of the brain which showed probable T2 shine through and minimal acute/subacute ischemic lacunar infarcts. likely embolic Normal [facility] Coding Query Coding Query From: Lay Dominguez RN To: Anai URIARTE; Cc: Ginny Talamantes; Sent: 04/30/2025 07:22:48 EDT ! 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 Cisneros on 05/03/2025. [facility] 36on 04-18-2025 36 Patient's daughter called to make you aware he had a stroke and was admitted to [facility]. He will be discharged today to SNF. He's scheduled for heart cath with you 05/10. Daughter wants to know if you still want him to have this or if he needs pushed out? Do you need to see him prior to this? Please advise. Thanks. Normal [facility] BMPon 04-18-2025 Anion gap [Moles/Vol] 12 mmol/L Normal 6-16 [facility] Comment on above: Performed By: #### 2 [id number] #### [facility] [address] [place] [address] BUN/Creat Ratio 22 No Units High 10-20 [facility] Comment on above: Performed By: #### 2 [id number] #### [facility] [address] [place] [address] Calcium [Mass/Vol] 8.7 mg/dL Low 8.9-11.1 [facility] Comment on above: Performed By: #### 2 299166 #### [facility] [address] [place] [address] Chloride [Moles/Vol] 102 mmol/L Normal 101-111 [facility] Comment on above: Performed By: #### 2 122382 #### [facility] [address] [place] [address] CO2 [Moles/Vol] 27 mmol/L Normal 21-31 [facility] Comment on above: Performed By: #### 2 924905 #### [facility] [address] [place] [address] Creatinine [Mass/Vol] 1.6 mg/dL High 0.5-1.3 [facility] Comment on above: Performed By: #### 2 379513 #### [facility] [address] [place] [address] Glucose [Mass/Vol] 233 mg/dL High 55-199 [facility] Comment on above: Performed By: #### 2 457704 #### [facility] [address] [place] [address] Potassium [Moles/Vol] 4.3 mmol/L Normal 3.5-5.3 [facility] Comment on above: Performed By: #### 2 838909 #### [facility] [address] [place] [address] Sodium [Moles/Vol] 137 mmol/L Normal 135-145 [facility] Comment on above: Performed By: #### 2 167151 #### [facility] [address] [place] [address] Urea nitrogen [Mass/Vol] 35 mg/dL High 5-21 [facility] Comment on above: Performed By: #### 2 164355 #### [facility] [address] [place] [address] CBC w/ Auto Diffon 5 Basophil Absolute 0.0 E9/L Normal 0.0-0.2 [facility] Comment on above: Performed By: #### 2 174899 #### [facility] [address] [place] [address] Basophils/100 WBC (Bld) 0.4 % Normal 0.0-2.0 [facility] Comment on above: Performed By: #### 2 170322 #### [facility] [address] [place] [address] Eos Absolute 0.2 E9/L Normal 0.0-0.5 [facility] Comment on above: Performed By: #### 2 387169 #### [facility] [address] [place] [address] Eosinophils/100 WBC (Bld) 2.3 % Normal 0.0-8.0 [facility] Comment on above: Performed By: #### 2 272679 #### [facility] [address] [place] [address] Erythrocyte distribution width (RBC) [Ratio] 20.0 % High 10.9-14.2 [facility] Comment on above: Performed By: #### 2 466947 #### [facility] [address] [place] [address] Hematocrit (Bld) [Volume fraction] 33.0 % Low 37.7-49.0 [facility] Comment on above: Performed By: #### 2 421837 #### [facility] [address] [place] [address] Hemoglobin (Bld) [Mass/Vol] 10.6 g/dL Low 13.5-17.5 [facility] Comment on above: Performed By: #### 2 492067 #### [facility] [address] [place] [address] Lymph Absolute 0.7 E9/L Low 1.0-4.0 [facility] Comment on above: Performed By: #### 2 439959 #### [facility] [address] [place] [address] Lymphocytes/100 WBC (Bld) 9.6 % Low 14.0-50.0 [facility] Comment on above: Performed By: #### 2 657031 #### [facility] [address] [place] [address] MCH (RBC) [Entitic mass] 27.3 pg Normal 27.0-34.0 [facility] Comment on above: Performed By: #### 2 786590 #### [facility] [address] [place] [address] MCHC (RBC) [Mass/Vol] 32.2 g/dL Normal 31.4-36.0 [facility] Comment on above: Performed By: #### 2 990484 #### [facility] [address] [place] [address] MCV (RBC) [Entitic vol] 84.6 fL Normal 80.0-100.0 [facility] Comment on above: Performed By: #### 2 603752 #### [facility] [address] [place] [address] M[place]ook Absolute 0.9 E9/L Normal 0.2-1.0 [facility] Comment on above: Performed By: #### 2 798790 #### [facility] [address] [place] [address] Monocytes/100 WBC (Bld) 11.6 % Normal 4.0-14.0 [facility] Comment on above: Performed By: #### 2 844489 #### [facility] [address] [place] [address] Neutro Absolute 5.7 E9/L Normal 2.0-7.5 [facility] Comment on above: Performed By: #### 2 662216 #### [facility] [address] [place] [address] Neutro Auto 76.1 % High 36.0-75.0 [facility] Comment on above: Performed By: #### 2 765742 #### [facility] [address] [place] [address] Platelet 234.0 E9/L Normal 150.0-500.0 [facility] Comment on above: Performed By: #### 2 743217 #### [facility] [address] [place] [address] Platelet mean volume (Bld) [Entitic vol] 9.0 fL Normal 6.4-10.8 [facility] Comment on above: Performed By: #### 2 449460 #### [facility] [address] [place] [address] RBC 3.9 E12/L Low 4.3-5.9 [facility] Comment on above: Performed By: #### 2 808776 #### [facility] [address] [place] [address] WBC 7.5 E9/L Normal 4.0-11.0 [facility] Comment on above: Performed By: #### 2 316575 #### [facility] [address] [place] [address] CHEMISTRYOrdered By: Lab ROP User on 04-18-2025 Glucose [Mass/Vol] 204 mg/dL High 55 - 99 mg/dL [facility] POC Subsection Comment on above: Result Comment: Tommie cortse RN/ POC Device SN [id number] 1 Invalid Interpretation Code [facility] POC Subsection POC Username BOGDAN WORKMAN Invalid Interpretation Code [facility] POC Subsection Sodium [Moles/Vol] [id number] mmol/L Invalid Interpretation Code [facility] POC Subsection Glucose [Mass/Vol] 212 mg/dL High 55 - 99 mg/dL [facility] POC Subsection Comment on above: Result Comment: Tommie HAGEN POC Device SN [id number] 1 Invalid Interpretation Code [facility] POC Subsection POC Username BOGDAN WORKMAN Invalid Interpretation Code [facility] POC Subsection Sodium [Moles/Vol] [id number] mmol/L Invalid Interpretation Code [facility] POC Subsection CHEMISTRYOrdered By: [...] POCon Glucose [Mass/Vol] 204 mg/dL High 55-99 [facility] Comment on above: Result Comment: Tommie HAGEN Performed By: #### 2 [id number] ####[facility] [address] [place] [address] Glucose [Mass/Vol] 212 mg/dL High 55-99 [facility] Comment on above: Result Comment: Tommie HAGEN Performed By: #### 2 [id number] #### [facility] [address] [place] [address] Discharge Note-Nursingon Discharge Note-Nursing Discharge Note-Nursing NADIR BETH :1940 Visit Date:04/14/2025 Inpatient Discharge Instructions Your Care Team Admitting Physician - Layne VERDUGO DO Consulting Physician - Clover Walker MD [facility] Wound, XXXX Reason for [...] LU OLMEDO PA-C Where: [facility] [address] [place] [address]- New Follow Up Appointments after Discharge Follow Up with Neurology When: Within 2 to 4 weeks Comments: Call for followup appointment Where: [phone] Medications What How Much When Why Instructions [...] day 04/19/2025 (more content not included)... Normal [facility] HEMATOLOGYOrdered By: SYSTEM SYSTEM on 04-18-2025 [...] 04-18-2025 Inpatient Clinical Summary Inpatient Clinical Summary [address] [address] Clinical Summary Person Information: Name: NADIR BETH Age: 85 Years : 1940 Sex: Male PCP: Van Youssef MD Marital Status: Race: White Ethnicity: Non- or Language: Malawian Visit Id: Visit Reason: Altered mental status; Headache; Potential stroke; stroke Speciality: Acuity: Enc Type: Inpatient Med Service: Medical Arrival: 04/14/2025 16:53:36 Discharge: Dispo Type: Admitted as IP to this Hosp Address: [address] [place] [address] [id number] Provider Notes: Diagnosis: 1:CVA (cerebrovascular accident); 2:Atrial [...] VERDUGO DO Consulting Physician: Clover Walker MD; [facility] Wound, XXXX Referring Physician: Follow up: With: Address: When: Neurology [phone] Within 2 to 4 weeks Comments: Call for followup appointment Type Location Start [facility] Office Visit [facility] 06/11/2025 11:40 AM 06/11/2025 12:00 PM Confirmed Patient Education Information: Type 2 Diabetes Mellitus, Diagnosis, Adult; Atrial Fibrillation; Core Measures: Stroke (Cerebrovascular Accident) [facility], (Custom) Normal [facility] Inpatient Patient Summaryon 04-18-2025 Inpatient Patient Summary Inpatient Patient Summary [place] [address] Patient Discharge Instructions PERSON INFORMATION Name: NADIR [...] constipation with overflow Condition at Discharge: Stable ZOEYMiroslavaNADIR DUVALL has been given the following list of [...] None Follow up: With: Address: When: Neurology [phone] Within 2 to 4 weeks Comments: Call for followup appointment In the event that this physician does not participate in your insurance network, please consult with your insurance company to find a nearby participating provider. Type Location Start [facility] Office Visit [facility] 06/11/2025 11:40 AM 06/11/2025 12:00 PM [...] Dose: ___ omepra (more content not included)... [facility] Interdisciplinary Note - Zachery e Manageron 04-18-2025 Interdisciplinary Note - Male Impersonator Interdisciplinary Note - Male Impersonator Patient awake and alert eating breakfast in bed. and dtr at bedside. Patient has been accepted to [facility], patient has completed 3MN and can dc when medically clear. and daughter will transport at dc. Patient will dc today. Denies any further concerns. [facility] Comment on above: Result Comment: Elec tronically Signed By: Jihan De Oliveira\.br\Date and Time Signed: 04/18/25 09:36 EDT eGFRon 04-18-2025 eGFR 42 mL/min/1.73 m2 Low >=59 [facility] Comment on above: Performed By: #### 1 [id number] #### [facility] [address] [place] [address] [facility] Anion gap [Moles/Vol] 15 mmol/L Normal 6-16 [facility] Comment on above: Performed By: #### 2 [id number] #### [facility] [address] [place] [address] BUN/Creat Ratio 21 No Units High 10-20 [facility] Comment on above: Performed By: #### 2 090712 #### [facility] [address] [place] [address] Calcium [Mass/Vol] 8.8 mg/dL Low 8.9-11.1 [facility] Comment on above: Performed By: #### 2 197752 #### [facility] [address] [place] [address] Chloride [Moles/Vol] 104 mmol/L Normal 101-111 [facility] Comment on above: Performed By: #### 2 618580 #### [facility] [address] [place] [address] CO2 [Moles/Vol] 26 mmol/L Normal 21-31 [facility] Comment on above: Performed By: #### 2 402440 #### [facility] [address] [place] [address] Creatinine [Mass/Vol] 1.6 mg/dL High 0.5-1.3 [facility] Comment on above: Performed By: #### 2 287385 #### [facility] [address] [place] [address] Glucose [Mass/Vol] 222 mg/dL High 55-199 [facility] Comment on above: Performed By: #### 2 329827 #### [facility] [address] [place] [address] Potassium [Moles/Vol] 4.1 mmol/L Normal 3.5-5.3 [facility] Comment on above: Performed By: #### 2 620304 #### [facility] [address] [place] [address] Sodium [Moles/Vol] 141 mmol/L Normal 135-145 [facility] Comment on above: Performed By: #### 2 489210 #### [facility] [address] [place] [address] Urea nitrogen [Mass/Vol] 34 mg/dL High 5-21 [facility] Comment on above: Performed By: #### 2 586296 #### [facility] [address] [place] [address] CBC w/ Auto Diffon 5 Basophil Absolute 0.1 E9/L Normal 0.0-0.2 [facility] Comment on above: Performed By: #### 2 505557 #### [facility] [address] [place] [address] Basophils/100 WBC (Bld) 0.6 % Normal 0.0-2.0 [facility] Comment on above: Performed By: #### 2 721147 #### [facility] [address] [place] [address] Eos Absolute 0.1 E9/L Normal 0.0-0.5 [facility] Comment on above: Performed By: #### 2 606175 #### [facility] [address] [place] [address] Eosinophils/100 WBC (Bld) 0.6 % Normal 0.0-8.0 [facility] Comment on above: Performed By: #### 2 332925 #### [facility] [address] [place] [address] Erythrocyte distribution width (RBC) [Ratio] 20.3 % High 10.9-14.2 [facility] Comment on above: Performed By: #### 2 835179 #### [facility] [address] [place] [address] Hematocrit (Bld) [Volume fraction] 34.9 % Low 37.7-49.0 [facility] Comment on above: Performed By: #### 2 267021 #### [facility] [address] [place] [address] Hemoglobin (Bld) [Mass/Vol] 11.2 g/dL Low 13.5-17.5 [facility] Comment on above: Performed By: #### 2 597386 #### [facility] [address] [place] [address] Lymph Absolute 0.7 E9/L Low 1.0-4.0 [facility] Comment on above: Performed By: #### 2 448026 #### [facility] [address] [place] [address] Lymphocytes/100 WBC (Bld) 7.1 % Low 14.0-50.0 [facility] Comment on above: Performed By: #### 2 142310 #### [facility] [address] [place] [address] MCH (RBC) [Entitic mass] 27.5 pg Normal 27.0-34.0 [facility] Comment on above: Performed By: #### 2 284477 #### [facility] [address] [place] [address] MCHC (RBC) [Mass/Vol] 32.2 g/dL Normal 31.4-36.0 [facility] Comment on above: Performed By: #### 2 834130 #### [facility] [address] [place] [address] MCV (RBC) [Entitic vol] 85.4 fL Normal 80.0-100.0 [facility] Comment on above: Performed By: #### 2 589642 #### [facility] [address] [place] [address] [place] Absolute 1.4 E9/L High 0.2-1.0 [facility] Comment on above: Performed By: #### 2 332683 #### [facility] [address] [place] [address] Monocytes/100 WBC (Bld) 13.7 % Normal 4.0-14.0 [facility] Comment on above: Performed By: #### 2 494700 #### [facility] [address] [place] [address] Neutro Absolute 7.7 E9/L High 2.0-7.5 [facility] Comment on above: Performed By: #### 2 976211 #### [facility] [address] [place] [address] Neutro Auto 78.0 % High 36.0-75.0 [facility] Comment on above: Performed By: #### 2 616953 #### [facility] [address] [place] [address] Platelet 237.0 E9/L Normal 150.0-500.0 [facility] Comment on above: Performed By: #### 2 670604 #### [facility] [address] [place] [address] Platelet mean volume (Bld) [Entitic vol] 9.1 fL Normal 6.4-10.8 [facility] Comment on above: Performed By: #### 2 464256 #### [facility] [address] [place] [id number] RBC 4.1 E12/L Low 4.3-5.9 [facility] Comment on above: Performed By: #### 2 644571 #### [facility] [address] [place] [address] WBC 9.9 E9/L Normal 4.0-11.0 [facility] Comment on above: Performed By: #### 2 673812 #### [facility] [address] [place] [address] CHEMISTRYOrdered By: Herlinda ROBERSON User on 04-17-2025 Glucose [Mass/Vol] 203 mg/dL High 55 - 99 mg/dL [facility] POC Subsection Comment on above: Result Comment: Tommie cortes RN/ POC Device SN [id number] 1 Invalid Interpretation Code [facility] POC Subsection POC Username JIMENA RIBEIRO Invalid Interpretation Code [facility] POC Subsection Sodium [Moles/Vol] [id number] mmol/L Invalid Interpretation Code [facility] POC Subsection CHEMISTRYOrdered By: [...] Remisol Chem Capillary Glucose POCon Glucose [Mass/Vol] 203 mg/dL High 55-99 [facility] Comment on above: Result Comment: Tommie HAGEN Performed By: #### 2 [id number] #### [facility] [address] [place] [address] Glucose [Mass/Vol] 240 mg/dL High 55-99 [facility] Comment on above: Result Comment: Tommie HAGEN Performed By: #### 2 [id number] #### [facility] [address] [place] [address] Glucose [Mass/Vol] 304 mg/dL High 55-99 [facility] Comment on above: Result Comment: Tommie HAGEN Performed By: #### 2 [id number] #### [facility] [address] [place] [address] Glucose [Mass/Vol] 191 mg/dL High 55-99 [facility] Comment on above: Result Comment: Tommie sebastian OTERO/ Performed By: #### 2 [id number] #### [facility] [address] [place] [address] Coding Queryon 04-17-2025 Coding Query Coding Query From: Tanesha Mcdowell RN To: Anai URIARTE; Sent: 04/17/2025 11:04:22 EDT ! Subject: Coding Query Due Date/Time: 04/18/2025 11:04:00 EDT Caller Name: NADIR BETH; Caller Number: Sergio , Jim Documentation in the medical record indicates this [...] NADIR BETH; Caller Number: Sergio , M ]Acute on Chronic Diastolic (Preserved EF) Heart Failure Normal [facility] Coding Query Coding Query From: Tanesha Mcdowell RN To: PEPE AGELENITA Anai; Sent: 04/16/2025 11:01:11 EDT ! Subject: Coding [...] __]Demand Ischemia (without a myocardial infarction) Normal [facility] HEMATOLOGYOrdered By: SYSTEM SYSTEM on 04-17-2025 [...] Zachery e Manageron 04-17-2025 Interdisciplinary Note - Male Impersonator Interdisciplinary Note - Male Impersonator Patient awake and alert eating breakfast in bed. and dtr at bedside. Patient has been accepted to [facility], patient has completed 3MN and can dc when medically clear. and dtr unsure if they will transport patient or if they will need transport set up. Dtr states she would like to see how patient does with PT first. Denies any further concerns. Family will transport patient to [facility]. Normal [facility] Comment on above: Result Comment: Elec tronically Signed By: Jihan De Oliveira\.br\Date and Time Signed: 04/17/25 10:54 EDT Interdisciplinary Note - Male Impersonator Interdisciplinary Note - Male Impersonator Patient awake and alert eating breakfast in bed. and dtr at bedside. Patient has been accepted to [facility], patient has completed 3MN and can dc when medically clear. and dtr unsure if they will transport patient or if they will need transport set up. Dtr states she would like to see how patient does with PT first. Denies any further concerns. Normal [facility] Comment on above: Result Comment: Elec tronically Signed By: Jihan De Oliveira\.br\Date and Time Signed: 04/17/25 08:41 EDT RPR with Conf Rfxon 04-17-20 25 RPR Qual Non-Reactive Invalid Interpretation Code Non Reactive [facility] Comment on above: Result Comment: Perf ormed at: CB [facility] [address] [place] [address] [id number] PhD Huan Vyas Performed By: #### 1 [id number] #### [facility] [address] [place] [address] eGFRon 04-17-2025 eGFR 42 mL/min/1.73 m2 Low >=59 [facility] Comment on above: Performed By: #### 1 [id number] #### [facility] [address] [place] [address] BMPon 04-16-2025 Anion gap [Moles/Vol] 18 mmol/L High 6-16 [facility] Comment on above: Performed By: #### 2 [id number] #### [facility] [address] [place] [address] BUN/Creat Ratio 19 No Units Normal 10-20 [facility] Comment on above: Performed By: #### 2 [id number] #### [facility] [address] [place] [address] Calcium [Mass/Vol] 9.2 mg/dL Normal 8.9-11.1 [facility] Comment on above: Performed By: #### 2 [id number] #### [facility] [address] [place] [address] Chloride [Moles/Vol] 103 mmol/L Normal 101-111 [facility] Comment on above: Performed By: #### 2 [id number] #### [facility] [address] [place] [address] CO2 [Moles/Vol] 24 mmol/L Normal 21-31 [facility] Comment on above: Performed By: #### 2 [id number] #### [facility] [address] [place] [address] Creatinine [Mass/Vol] 1.7 mg/dL High 0.5-1.3 [facility] Comment on above: Performed By: #### 2 [id number] #### [facility] [address] [place] [address] Glucose [Mass/Vol] 212 mg/dL High 55-199 [facility] Comment on above: Performed By: #### 2 [id number] #### [facility] [address] [place] [address] Potassium [Moles/Vol] 3.9 mmol/L Normal 3.5-5.3 [facility] Comment on above: Performed By: #### 2 [id number] #### [facility] [address] [place] [address] Sodium [Moles/Vol] 141 mmol/L Normal 135-145 [facility] Comment on above: Performed By: #### 2 [id number] #### [facility] [address] [place] [address] Urea nitrogen [Mass/Vol] 33 mg/dL High 5-21 [facility] Comment on above: Performed By: #### 2 [id number] #### [facility] [address] [place] [address] CBC w/ Auto Diffon 5 Basophil Absolute 0.0 E9/L Normal 0.0-0.2 [facility] Comment on above: Performed By: #### 2 [id number] #### [facility] [address] [place] [address] Basophils/100 WBC (Bld) 0.1 % Normal 0.0-2.0 [facility] Comment on above: Performed By: #### 2 [id number] #### [facility] [address] [place] [address] Eos Absolute 0.0 E9/L Normal 0.0-0.5 [facility] Comment on above: Performed By: #### 2 [id number] #### [facility] [address] [place] [address] Eosinophils/100 WBC (Bld) 0.2 % Normal 0.0-8.0 [facility] Comment on above: Performed By: #### 2 [id number] #### [facility] [address] [place] [address] Erythrocyte distribution width (RBC) [Ratio] 20.4 % High 10.9-14.2 [facility] Comment on above: Performed By: #### 2 [id number] #### [facility] [address] [place] [address] Hematocrit (Bld) [Volume fraction] 37.2 % Low 37.7-49.0 [facility] Comment on above: Performed By: #### 2 [id number] #### [facility] [address] [place] [address] Hemoglobin (Bld) [Mass/Vol] 11.9 g/dL Low 13.5-17.5 [facility] Comment on above: Performed By: #### 2 [id number] #### [facility] [address] [place] [address] Lymph Absolute 0.7 E9/L Low 1.0-4.0 [facility] Comment on above: Performed By: #### 2 [id number] #### [facility] [address] [place] [address] Lymphocytes/100 WBC (Bld) 4.6 % Low 14.0-50.0 [facility] Comment on above: Performed By: #### 2 [id number] #### [facility] [address] [place] [address] MCH (RBC) [Entitic mass] 27.2 pg Normal 27.0-34.0 [facility] Comment on above: Performed By: #### 2 [id number] #### [facility] [address] [place] [address] MCHC (RBC) [Mass/Vol] 32.0 g/dL Normal 31.4-36.0 [facility] Comment on above: Performed By: #### 2 [id number] #### [facility] [address] [place] [address] MCV (RBC) [Entitic vol] 84.9 fL Normal 80.0-100.0 [facility] Comment on above: Performed By: #### 2 [id number] #### [facility] [address] [place] [address] [place] Absolute 1.6 E9/L High 0.2-1.0 [facility] Comment on above: Performed By: #### 2 [id number] #### [facility] [address] [place] [address] Monocytes/100 WBC (Bld) 10.8 % Normal 4.0-14.0 [facility] Comment on above: Performed By: #### 2 [id number] #### [facility] [address] [place] [address] Neutro Absolute 12.3 E9/L High 2.0-7.5 [facility] Comment on above: Performed By: #### 2 [id number] #### [facility] [address] [place] [address] Neutro Auto 84.3 % High 36.0-75.0 [facility] Comment on above: Performed By: #### 2 889251 #### [facility] [address] [place] [address] Platelet 268.0 E9/L Normal 150.0-500.0 [facility] Comment on above: Performed By: #### 2 577371 #### [facility] [address] [place] [address] Platelet mean volume (Bld) [Entitic vol] 8.7 fL Normal 6.4-10.8 [facility] Comment on above: Performed By: #### 2 [id number] #### [facility] [address] [place] [address] RBC 4.4 E12/L Normal 4.3-5.9 [facility] Comment on above: Performed By: #### 2 496255 #### [facility] [address] [place] [address] WBC 14.6 E9/L High 4.0-11.0 [facility] Comment on above: Performed By: #### 2 [id number] #### [facility] [address] [place] [address] CHEMISTRYOrdered By: SYSTEM SYSTEM on 04-16-2025 Anion [...] POCon Glucose [Mass/Vol] 265 mg/dL High 55-99 [facility] Comment on above: Result Comment: Tommie HAGEN Performed By: #### 2 [id number] #### [facility] [address] [place] [address] Glucose [Mass/Vol] 246 mg/dL High 55-99 [facility] Comment on above: Result Comment: Tommie HAGEN Performed By: #### 2 [id number] #### [facility] [address] [place] [address] Glucose [Mass/Vol] 294 mg/dL High 55-99 [facility] Comment on above: Result Comment: Tommie HAGEN Performed By: #### 2 [id number] #### [facility] [address] [place] [address] Glucose [Mass/Vol] 195 mg/dL High 55-99 [facility] Comment on above: Result Comment: Tommie HAGEN Performed By: #### 2 [id number] #### [facility] [address] [place] [address] Coding Queryon 04-16-2025 Coding Query Coding Query From: Tanesha Mcdowell RN To: PEPE CADE Anai; Sent: 04/16/2025 11:01:11 EDT ! Subject: Coding [...] desired or expected. Thank you!tanesha [id number] Normal [facility] HEMATOLOGYOrdered By: SYSTEM SYSTEM on 04-16-2025 [...] High 4.0 - 11.0 E9/L Remisol Heme [id number] 04-16-2025 HbA1c (Bld) [Mass fraction] 9.9 % High <=5.9 [facility] Comment on above: Performed By: #### 7 [id number] #### [facility] [address] [place] [address] Inpatient Clinical Summaryon 04-16-2025 Inpatient Clinical Summary Inpatient Clinical Summary [facility] [address] [place], [place] [address] Clinical Summary Person Information: Name: NADIR BETH Age: 85 Years : 1940 Sex: Male PCP: Van Youssef MD Marital Status: Race: White Ethnicity: Non- or Language: Malawian Visit Id: Visit Reason: Altered mental status; Headache; Potential stroke; stroke Speciality: Acuity: Enc Type: Inpatient Med Service: Medical Arrival: 04/14/2025 16:53:36 Discharge: Dispo Type: Admitted as IP to this Hosp Address: [address] [place] [phone] Provider Notes: Diagnosis: 1:CVA (cerebrovascular accident); 2:Atrial [...] VERDUGO DO Consulting Physician: Clover Walker MD; [facility] Cardio, XXXX; [facility] Wound, XXXX Referring Physician: Follow up: With: Address: When: Neurology [phone] Within 2 to 4 weeks Comments: Call for followup a (more content not included)... Normal [facility] Inpatient Patient Summaryon 04-16-2025 Inpatient Patient Summary Inpatient Patient Summary [place] [id number] Patient Discharge Instructions PERSON INFORMATION Name: KIRIT NADIR Joy Date of : 1940 Current Date: 04/16/2025 [...] results: Follow up: With: Address: When: Neurology [phone] Within 2 to 4 weeks Comments: Call for followup appointment In the event that this physician does not participate in your insurance network, please consult with your insurance company to find a nearby participating provider. Type Location Start Finish State URO Office Visit [facility] NAV Dominguez 06/11/2025 11:40 [...] day. La (more content not included)... Normal [facility] Interdisciplinary Note - Zahcery e Manageron 04-16-2025 Interdisciplinary Note - Male Impersonator Interdisciplinary Note - Male Impersonator CRM to room 202 Patient is awake, [...] and pericardial effusion. Patient is assigned to [facility], see notes. Patient has wound, cardiology and neurology on case. Patient is pending MRI. He is getting an ECHO now. Patient has recs from therapy for SNF. Patient spouse would like him referred to [facility]. Patient can DC there if accepted on 04/17 per 3 M needed. Patient white board updated. CRM following, contact info provided. DC plan SNF, pending [facility] accepts for SNF stay [facility] Comment on above: Result Comment: Elec tronically Signed By: Cierra Rouse\.br\Date and Time Signed: 04/16/25 11:58 EDT Interdisciplinary Note - Male Impersonator Interdisciplinary Note - Male Impersonator CRM to room 202 Patient is awake, [...] and pericardial effusion. Patient is assigned to [facility], see notes. Patient has wound, cardiology and neurology on case. Patient is pending MRI. He is getting an ECHO now. Patient has recs from therapy for SNF. Patient spouse would like him referred to [facility]. Patient can DC there if accepted on 04/17 per 3 M needed. Patient white board updated. CRM following, contact info provided. DC plan SNF, pending [place] Normal [facility] Comment on above: Result Comment: Elec tronically Signed By: Cierra Rouse\.mary\Date and Time Signed: 04/16/25 09:48 EDT Interdisciplinary Note - Isaías singon 04-16-2025 Interdisciplinary Note - Nursing Interdisciplinary Note - Nursing pt has a stasis ulcer on left lower leg. 1.2cm long by 1.2cm wide by 0.1 depth. staff can continue with antibiotic ointment, or may use maya and dry dressing change every other day. follow up out patient wound clinic Normal [facility] Interdisciplinary Note - Denise n 04-16-2025 Interdisciplinary Note - OT Interdisciplinary Note - OT OT [facility] six clicks score 16/24 = SNF. Patient requires MIN A w/ sit to stand transfers at eob, Min- mod A w dynamic standing adls. Pt requires mod vc for walker safety and sequencing w/ all functional tasks. Inpatient OT services to follow daily to progress as tolerates w/ self help skills. Normal [facility] MRI Brain w/o Contraston MRI Brain [...] MD Transcribed by: MARII Technologist: JOSE Normal [facility] Magnesiumon 04-16-2025 Magnesium [Mass/Vol] 2.4 mg/dL Normal 1.3-2.4 [facility] Comment on above: Performed By: #### 2 [id number] #### [facility] [address] [place] [address] eGFRon 04-16-2025 eGFR 39 mL/min/1.73 m2 Low >=59 [facility] Comment on above: Performed By: #### 1 [id number] #### [facility] [address] [place] [address] BMPon 04-15-2025 Anion gap [Moles/Vol] 20 mmol/L High 6-16 [facility] Comment on above: Performed By: #### 2 [id number] #### [facility] [address] [place] [address] BUN/Creat Ratio 18 No Units Normal 10-20 [facility] Comment on above: Performed By: #### 2 [id number] #### [facility] [address] [place] [address] Calcium [Mass/Vol] 9.4 mg/dL Normal 8.9-11.1 [facility] Comment on above: Performed By: #### 2 473836 #### [facility] [address] [place] [address] Chloride [Moles/Vol] 102 mmol/L Normal 101-111 [facility] Comment on above: Performed By: #### 2 106108 #### [facility] [address] [place] [address] CO2 [Moles/Vol] 24 mmol/L Normal 21-31 [facility] Comment on above: Performed By: #### 2 995220 #### [facility] [address] [place] [address] Creatinine [Mass/Vol] 1.7 mg/dL High 0.5-1.3 [facility] Comment on above: Performed By: #### 2 [id number] #### [facility] [address] [place] [address] Glucose [Mass/Vol] 208 mg/dL High 55-199 [facility] Comment on above: Performed By: #### 2 [id number] #### [facility] [address] [place] [address] Potassium [Moles/Vol] 4.0 mmol/L Normal 3.5-5.3 [facility] Comment on above: Performed By: #### 2 [id number] #### [facility] [address] [place] [address] Sodium [Moles/Vol] 142 mmol/L Normal 135-145 [facility] Comment on above: Performed By: #### 2 [id number] #### [facility] [address] [place] [address] Urea nitrogen [Mass/Vol] 30 mg/dL High 5-21 [facility] Comment on above: Performed By: #### 2 [id number] #### [facility] [address] [facility] [address] CHEMISTRYOrdered By: SYSTEM SYSTEM on 04-15-2025 Cholesterol [...] Sensitivity Troponin I Instructions For Use, Roxane Penrose, June 2018) TSH Qn 0.50 m[IU]/L Normal 0.34 - 5.60 mcIU/mL [facility] CHEMISTRYOrdered By: Kaiser Daly on 04-15-2025 HbA1c (Bld) [Mass fraction] 9.9 % High <=5.9% [facility] ChemAutoSS COAGULATIONOrdered By: Deb Maza on 04-15-2025 aPTT Coag (PPP) [Time] 45.1 s High 25.1 - 36.5 second(s) [facility] Auto Coag Comment on [...] the same coagulation reagent and instrumentation as [facility]. Currently there are no coagulation studies available worldwide for children to 14 days, and no normal ranges. Heparin therapeutic range (represented by Anti-Factor Xa activity of 0.2 - 0.4 U/mL) corresponds to PTT of 56.6 - 109.0 sec. INR Coag (PPP) [Relative time] 0.95 {INR} Invalid Interpretation Code [facility] Comment on above: Interpretive Data: I NR results are specifically intended to assess patients stabilized on long-term Anticoagulation therapy suggested INR s Less Intensive Anticoagulation 2.0 3.0 Conventional Range 3.0 4.5 PT Coag (PPP) [Time] 10.6 s Normal 9.4 - 1 2.5 second(s) [facility] [employer] Comment on [...] obtained from a study by mayra Phan alJeannie prepared from 1437 samples obtained at 7 different centers using the same coagulation reagent and instrumentation as [facility]. Currently there are no coagulation studies available worldwide for children to 14 days, and no normal ranges. COAGULATIONOrdered By: Marty Naidu on 04-15-2025 aPTT Coag (PPP) [Time] 53.2 s High 25.1 - 36.5 second(s) [facility] Auto Coag Comment on [...] the same coagulation reagent and instrumentation as [facility]. Currently there are no coagulation studies available worldwide for children to 14 days, and no normal ranges. Heparin therapeutic range (represented by Anti-Factor Xa activity of 0.2 - 0.4 U/mL) corresponds to PTT of 56.6 - 109.0 sec. INR Coag (PPP) [Relative time] 0.96 {INR} Invalid Interpretation Code [facility] Comment on above: Interpretive Data: I NR results are specifically intended to assess patients stabilized on long-term Anticoagulation therapy suggested INR s Less Intensive Anticoagulation 2.0 3.0 Conventional Range 3.0 4.5 PT Coag (PPP) [Time] 10.8 s Normal 9.4 - 1 2.5 second(s) [facility] Auto [employer] Comment on [...] the same coagulation reagent and instrumentation as [facility]. Currently there are no coagulation studies available worldwide for children to 14 days, and no normal ranges. Capillary Glucose POCon Glucose [Mass/Vol] 177 mg/dL High 55-99 [facility] Comment on above: Result Comment: Tommie HAGEN Performed By: #### 2 [id number] #### [facility] [address] [place] [address] Glucose [Mass/Vol] 202 mg/dL High 55-99 [facility] Comment on above: Result Comment: Tommie HAGEN Performed By: #### 2 [id number] #### [facility] [address] [place] [address] Glucose [Mass/Vol] 216 mg/dL High 55-99 [facility] Comment on above: Result Comment: Tommie HAGEN Performed By: #### 2 [id number] #### [facility] [address] [place] [address] Glucose [Mass/Vol] 242 mg/dL High 55-99 [facility] Comment on above: Result Comment: Tommie HAGEN Performed By: #### 2 [id number] #### [facility] [address] [place] [address] Extra Mir 04-15-2025 WB Tube Collected Yes Invalid Interpretation Code [facility] Comment on above: Performed By: #### 1 [id number] #### [facility] [address] [place] [address] Folateon 04-15-2025 Folate Lvl >22.3 Normal >=6.7 [facility] Comment on above: Performed By: #### 2 [id number] #### [facility] [address] [place] [address] Hemoglobinon 04-15-2025 Hemoglobin (Bld) [Mass/Vol] 12.2 g/dL Low 13.5-17.5 [facility] Comment on above: Performed By: #### 2 [id number] #### [facility] [address] [place] [address] Interdisciplinary Note - Denise n 04-15-2025 Interdisciplinary Note - OT Interdisciplinary Note - OT OT chart reviewed and spoke to nursing with request to hold today until pt. is more medically stable. Will recheck tomorrow. Normal [facility] Interdisciplinary Note - Spe ech Languageon [...] to 5x/week to address these deficits. Normal [facility] Lipid Panelon 04-15-2025 Cholesterol [Mass/Vol] 210 mg/dL High 120-200 [facility] Comment on above: Performed By: #### 2 [id number] #### [facility] [address] [place] [address] Cholesterol in HDL [Mass/Vol] 88 mg/dL Invalid Interpretation Code [facility] Comment on above: Result Comment: '>= 60 LOW RISK' '<= 40 HIGH RISK' Performed By: #### 2 [id number] #### [facility] [address] [place] [address] Cholesterol in LDL [Mass/Vol] 107 mg/dL Normal <=129 [facility] Comment on above: Performed By: #### 2 [id number] #### [facility] [address] [place] [address] Cholesterol in VLDL [Mass/Vol] 9 mg/dL Normal 7-40 [facility] Comment on above: Performed By: #### 2 [id number] #### [facility] [address] [place] [address] Triglyceride [Mass/Vol] 44 mg/dL Normal <=149 [facility] Comment on above: Performed By: #### 2 [id number] #### [facility] [address] [place] [address] Magnesiumon 04-15-2025 Magnesium [Mass/Vol] 2.6 mg/dL High 1.3-2.4 [facility] Comment on above: Performed By: #### 2 [id number] #### [facility] [address] [place] [address] PT & PTTon 04-15-2025 INR Coag (PPP) [Relative time] 0.95 {INR} Invalid Interpretation Code [facility] Comment on above: Result Comment: INR results are specifically intended to assess patients stabilized on long-term Anticoagulation therapy suggested INR???s ???Less Intensive Anticoagulation??? 2.0 ??? 3.0 Conventional Range 3.0 ??? 4.5 Performed By: #### 1 [id number] #### [facility] [address] [place] [address] PT 10.6 second(s) Normal 9.4-12.5 [facility] Comment on above: Result Comment: 15 [...] the same coagulation reagent and instrumentation as [facility]. Currently there are no coagulation studies available worldwide for children to 14 days, and no normal ranges. Performed By: #### 1 [id number] #### [facility] [address] [place] [address] PTT 45.1 second(s) High 25.1-36.5 [facility] Comment on above: Result Comment: Para [...] the same coagulation reagent and instrumentation as [facility]. Currently there are no coagulation studies available worldwide for children to 14 days, and no normal ranges. Heparin therapeutic range (represented by Anti-Factor Xa activity of 0.2 - 0.4 U/mL) corresponds to PTT of 56.6 - 109.0 sec. Performed By: #### 1 [id number] #### [facility] [address] [place] [address] INR Coag (PPP) [Relative time] 0.96 {INR} Invalid Interpretation Code [facility] Comment on above: Result Comment: INR results are specifically intended to assess patients stabilized on long-term Anticoagulation therapy suggested INR???s ???Less Intensive Anticoagulation??? 2.0 ??? 3.0 Conventional Range 3.0 ??? 4.5 Performed By: #### 1 [id number] #### [facility] [address] [place] [address] PT 10.8 second(s) Normal 9.4-12.5 [facility] Comment on above: Result Comment: 15 [...] the same coagulation reagent and instrumentation as [facility]. Currently there are no coagulation studies available worldwide for children to 14 days, and no normal ranges. Performed By: #### 1 [id number] #### [facility] [address] [place] [address] PTT 53.2 second(s) High 25.1-36.5 [facility] Comment on above: Result Comment: Para [...] the same coagulation reagent and instrumentation as [facility]. Currently there are no coagulation studies available worldwide for children to 14 days, and no normal ranges. Heparin therapeutic range (represented by Anti-Factor Xa activity of 0.2 - 0.4 U/mL) corresponds to PTT of 56.6 - 109.0 sec. Performed By: #### 1 [id number] #### [facility] [address] [place] [address] Platelet Counton 04-15-2025 Platelet 299.0 E9/L Normal 150.0-500.0 [facility] Comment on above: Performed By: #### 2 [id number] #### [facility] [address] [place] [address] Reference Laboratory Testing Ordered By: Generated DomainUser on 04-15-2025 Reagin Ab RPR Ql (S) Non-Reactive Invalid Interpretation Code Non Reactive [facility] [employer] Comment on above: Result Comment: Perf ormed at: [facility] [address] [id number] PhD Huan Vyas TSH With T4fr Reflexon 04-15 TSH Qn 0.50 m[IU]/L Normal 0.34-5.60 [facility] Comment on above: Performed By: #### 1 [id number] #### [facility] [address] [place] [address] Troponinon 04-15-2025 Troponin HS 62.60 pg/mL Abnormal 15.90-38.40 [facility] Comment on above: Result Comment: Crit ical [...] High Sensitivity Troponin I Instructions For Use, The 5th Quarter, June 2018) Performed By: #### 2 [id number] #### [facility] [address] [place] [address] UA with Cult Rflxon 04-15-20 25 Color (U) Light-Yellow Normal Yellow [facility] Comment on above: Result Comment: Micr oscopic readings are only performed on those samples that meet specific criteria set forth by [facility]. Performed By: #### 4 [id number] #### [facility] [address] [place] [address] Ketones Ql (U) 1+ mg/dL Abnormal Negative [facility] Comment on above: Performed By: #### 4 [id number] #### [facility] [address] [place] [address] UA Blood Trace Abnormal Negative [facility] Comment on above: Performed By: #### 4 [id number] #### [facility] [address] [place] [address] UA Clarity Clear Normal Clear [facility] Comment on above: Performed By: #### 4 [id number] #### [facility] [address] [place] [address] UA Glucose 4+ mg/dL Abnormal Negative [facility] Comment on above: Performed By: #### 4 [id number] #### [facility] [address] [place] [address] UA Leuk Est Negative Normal Negative [facility] Comment on above: Performed By: #### 4 [id number] #### [facility] [address] [place] [address] UA Nitrite Negative Normal Negative [facility] Comment on above: Performed By: #### 4 [id number] #### [facility] [address] [place] [address] UA pH 6.0 Invalid Interpretation Code 5.0-9.0 [facility] Comment on above: Performed By: #### 4 [id number] #### [facility] [address] [place] [address] UA Protein Negative Normal Negative [facility] Comment on above: Performed By: #### 4 [id number] #### [facility] [address] [place] [address] UA Spec Grav 1.023 Invalid Interpretation Code 1.005-1.030 [facility] Comment on above: Performed By: #### 4 [id number] #### [facility] [address] [place] [address] UA Urobilinogen Negative Normal Negative [facility] Comment on above: Performed By: #### 4 [id number] #### [facility] [address] [place] [address] Urobilinogen (U) [Mass/Vol] Negative Normal Negative [facility] Comment on above: Performed By: #### 4 [id number] #### [facility] [address] [place] [address] URINALYSISOrdered By: SYSTEM SYSTEM on 04-15-2025 Bilirubin Ql (U) Negative Normal Negativemg/ d L [facility] UA Auto SS Clarity (U) Clear (04/15/25 4:58 AM) Normal Clear [facility] UA Auto SS Color (U) Light-Yellow 1 (04/15/25 4:58 AM) Normal Yellow [facility] Auto SS Comment on above: Interpretive Data: M icroscopic readings are only performed on those samples that meet specific criteria set forth by [facility]. Glucose Ql (U) 4+ mg/dL [...] AM) Invalid Interpretation Code 1.005 - 1.030 [facility] UA Auto SS Urobilinogen (U) [Mass/Vol] Negative Normal Negativemg/d L [facility] UA Auto SS URINALYSISOrdered By: Nick Farmer on 04-15-2025 UA Spec Desc Clean Catch (04/15/25 4:58 AM) Normal [facility] UA Auto SS Vit B12on 04-15-2025 Cobalamin (Vitamin B12) [Mass/Vol] 573 pg/mL Normal 50-1500 [facility] Comment on above: Performed By: #### 2 [id number] #### [facility] [address] [place] [address] eGFRon 04-15-2025 eGFR 39 mL/min/1.73 m2 Low >=59 [facility] Comment on above: Performed By: #### 1 [id number] #### [facility] [address] [place] [address] BB Draw & Holdon 04-14-2025 BB D&H Sample drawn for Blo od Ba Normal [facility] Comment on above: Performed By: #### 1 [id number] #### [facility] [address] [place] [address] BMPon 04-14-2025 Anion gap [Moles/Vol] 15 mmol/L Normal 6-16 [facility] Comment on above: Performed By: #### 2 [id number] #### [facility] [address] [place] [address] BUN/Creat Ratio 16 No Units Normal 10-20 [facility] Comment on above: Performed By: #### 2 [id number] #### [facility] [address] [place] [address] Calcium [Mass/Vol] 9.0 mg/dL Normal 8.9-11.1 [facility] Comment on above: Performed By: #### 2 [id number] #### [facility] [address] [place] [address] Chloride [Moles/Vol] 103 mmol/L Normal 101-111 [facility] Comment on above: Performed By: #### 2 [id number] #### [facility] [address] [place] [address] CO2 [Moles/Vol] 24 mmol/L Normal 21-31 [facility] Comment on above: Performed By: #### 2 [id number] #### [facility] [address] [place] [address] Creatinine [Mass/Vol] 1.8 mg/dL High 0.5-1.3 [facility] Comment on above: Performed By: #### 2 [id number] #### [facility] [address] [place] [address] Glucose [Mass/Vol] 245 mg/dL High 55-199 [facility] Comment on above: Performed By: #### 2 [id number] #### [facility] [address] [place] [address] Potassium [Moles/Vol] 5.0 mmol/L Normal 3.5-5.3 [facility] Comment on above: Performed By: #### 2 [id number] #### [facility] [address] [place] [address] Sodium [Moles/Vol] 137 mmol/L Normal 135-145 [facility] Comment on above: Performed By: #### 2 [id number] #### [facility] [address] [place] [address] Urea nitrogen [Mass/Vol] 28 mg/dL High 5-21 [facility] Comment on above: Performed By: #### 2 [id number] #### [facility] [address] [place] [address] BNPon 04-14-2025 Natriuretic peptide B (Bld) [Mass/Vol] 512 pg/mL High 5-80 [facility] Comment on above: Performed By: #### 1 [id number] #### [facility] [address] [place] [address] CBC w/ Auto Diffon 5 Basophil Absolute 0.1 E9/L Normal 0.0-0.2 [facility] Comment on above: Performed By: #### 2 [id number] #### [facility] [address] [place] [address] Basophils/100 WBC (Bld) 0.8 % Normal 0.0-2.0 [facility] Comment on above: Performed By: #### 2 [id number] #### [facility] [address] [place] [address] Eos Absolute 0.1 E9/L Normal 0.0-0.5 [facility] Comment on above: Performed By: #### 2 164014 #### [facility] [address] [place] [address] Eosinophils/100 WBC (Bld) 1.5 % Normal 0.0-8.0 [facility] Comment on above: Performed By: #### 2 554468 #### [facility] [address] [place] [address] Erythrocyte distribution width (RBC) [Ratio] 19.7 % High 10.9-14.2 [facility] Comment on above: Performed By: #### 2 633135 #### [facility] [address] [place] [address] Hematocrit (Bld) [Volume fraction] 33.7 % Low 37.7-49.0 [facility] Comment on above: Performed By: #### 2 [id number] #### [facility] [address] [place] [address] Hemoglobin (Bld) [Mass/Vol] 11.0 g/dL Low 13.5-17.5 [facility] Comment on above: Performed By: #### 2 784908 #### [facility] [address] [place] [address] Lymph Absolute 0.6 E9/L Low 1.0-4.0 [facility] Comment on above: Performed By: #### 2 [id number] #### [facility] [address] [place] [address] Lymphocytes/100 WBC (Bld) 7.8 % Low 14.0-50.0 [facility] Comment on above: Performed By: #### 2 [id number] #### [facility] [address] [place] [address] MCH (RBC) [Entitic mass] 27.5 pg Normal 27.0-34.0 [facility] Comment on above: Performed By: #### 2 076784 #### [facility] [address] [place] [address] MCHC (RBC) [Mass/Vol] 32.7 g/dL Normal 31.4-36.0 [facility] Comment on above: Performed By: #### 2 675571 #### [facility] [address] [place] [address] MCV (RBC) [Entitic vol] 84.0 fL Normal 80.0-100.0 [facility] Comment on above: Performed By: #### 2 058493 #### [facility] [address] [place] [address] [place] Absolute 0.8 E9/L Normal 0.2-1.0 [facility] Comment on above: Performed By: #### 2 627739 #### [facility] [address] [place] [address] Monocytes/100 WBC (Bld) 9.9 % Normal 4.0-14.0 [facility] Comment on above: Performed By: #### 2 784040 #### [facility] [address] [place] [address] Neutro Absolute 6.5 E9/L Normal 2.0-7.5 [facility] Comment on above: Performed By: #### 2 244355 #### [facility] [address] [place] [address] Neutro Auto 80.0 % High 36.0-75.0 [facility] Comment on above: Performed By: #### 2 048160 #### [facility] [address] [place] [address] Platelet 216.0 E9/L Normal 150.0-500.0 [facility] Comment on above: Performed By: #### 2 308432 #### [facility] [address] [place] [address] Platelet mean volume (Bld) [Entitic vol] 9.3 fL Normal 6.4-10.8 [facility] Comment on above: Performed By: #### 2 937539 #### [facility] [address] [place] [address] RBC 4.0 E12/L Low 4.3-5.9 [facility] Comment on above: Performed By: #### 2 974548 #### [facility] [address] [place] [address] WBC 8.1 E9/L Normal 4.0-11.0 [facility] Comment on above: Result Comment: Rosaura pheral smear review performed. Performed By: #### 2 [id number] #### [facility] [address] [place] [address] CHEMISTRYOrdered By: SYSTEM SYSTEM on 04-14-2025 Lactate [Moles/Vol] 1.5 mmol/L [...] 512 pg/mL High 5 - 80 pg/mL [facility] CHEMISTRYOrdered By: Samir Naidu on 04-14-2025 Magnesium [...] 33.3 s Normal 25.1 - 36.5 second(s) [facility] Auto Coag Comment on [...] the same coagulation reagent and instrumentation as [facility]. Currently there are no coagulation studies available worldwide for children to 14 days, and no normal ranges. Heparin therapeutic range (represented by Anti-Factor Xa activity of 0.2 - 0.4 U/mL) corresponds to PTT of 56.6 - 109.0 sec. INR Coag (PPP) [Relative time] 0.98 {INR} Invalid Interpretation Code [facility] Comment on above: Interpretive Data: I NR results are specifically intended to assess patients stabilized on long-term Anticoagulation therapy suggested INR s Less Intensive Anticoagulation 2.0 3.0 Conventional Range 3.0 4.5 PT Coag (PPP) [Time] 11.0 s Normal 9.4 - 1 2.5 second(s) [facility] Auto Coag Comment on [...] the same coagulation reagent and instrumentation as [facility]. Currently there are no [...] Rodriguez DO Transcribed by: MARII Technologist: ADÁN Romero [facility] CT Head or Brain w/o Contras [...] Rodriguez DO Transcribed by: MARII Technologist: ADÁN [facility] CTA Headon 04-14-2025 CTA Head Exam Date/Time: 04/14/2025 17:33 EDT Reason for Exam: NEURO DEFICIT, ACUTE, STROKE SUSPECTED;Other (please specify) Report Please see CTA neck report. Ordering Provider: Rivas Griggs FINAL REPORT Dictated: 04/14/2025 5:55 pm Yoel Rodriguez DO Signed (Electronic Signature): 04/14/2025 5:55 pm Signed by: Yoel Rodriguez DO Transcribed by: MARII Technologist: CONSTANTIN Tovar [facility] CTA Neckon 04-14-2025 CTA Neck Exam Date/Time: [...] obtained from the thoracic inlet through the chemehue[place] of [place] after administration of intravenous contrast. [...] DO Transcribed by: MARII Technologist: CONSTANTIN Tovar [facility] Capillary Glucose POCon 03-17 Glucose [Mass/Vol] 261 mg/dL High 55-99 [facility] Comment on above: Performed By: #### 2 [id number] #### [facility] [address] [place] [address] ED Clinical Summaryon 2024 ED Clinical Summary ED Clinical Summary [address] [address] ED Clinical Summary Person Information Name: NADIR BETH [place] Age: 85 Years : 1940 Sex: Male Language: Malawian PCP: Van Youssef MD Marital Status: Visit Id: Visit Reason: Altered mental status; Headache; Potential stroke; stroke Speciality: Acuity: 2 Enc Type: Inpatient Med Service: Medical Arrival: 04/14/2025 16:53:36 Discharge: LOS: 000 03:59 Checkin: 04/14/2025 16:53:36 Checkout: 04/14/2025 20:52:18 Dispo Type: Admitted as IP to this [facility] EVENTS: Event Name Event Status Request [...] 19:37:19 Pending Labs Request 04/14/2025 19:50:50 ADDRESS: [address] [place] [id number] PHYS DOC NOTES: Addendum by Oleg Doll DO on April 14, 2025 19:50:02 EDT MEDICAL INFORMATION: Prescriptions Given: Medications to Continue with No Changes Other Medications acetaminophen-hydrocod one (Sabine 325 mg-5 mg oral tablet) 1 Tablets [...] the morn (more content not included)... Normal [facility] ED Note-Physicianon 04-14-20 ED Note-Physician ED Note-Physician Basic Information Time Seen: Rivas Griggs M.D. 04/14/2025 17:02 Chief Complaint pt presents via [facility] d[facility]t ams. family states pt complains [...] and Complexity of Problems Differential Diagnosis: [] [facility] Data External documents reviewed: [] My EKG [...] cardiac and/ (more content not included)... Normal [facility] Comment on above: Result Comment: Elec tronically Signed By: Oleg Doll DO.mary\Date and Time Signed: 04/14/25 19:50 EDT ED Patient Education Noteon 04-14-2025 ED Patient Education Note ED Patient Education Note Normal [facility] ED Patient Summaryon 025 ED Patient Summary ED Patient Summary [address] [address] Patient Discharge Instructions Person Information Name: NADIR BETH Age: 85 Years Arrival Date: 04/14/2025 16:53:36 Discharge Diagnosis: 1:CVA (cerebrovascular accident); 2:Congestive heart failure; 3:Chronic kidney disease; 4:Hypertensive urgency; Pericardial effusion; Pleural effusion Primary Care Physician: Van Youssef MD Provider Information Primary Provider: Rivas Griggs M.D. Advanced Program Aide Group Work:None The exam and treatment you received in the Emergency Department were for an urgent problem and are not intended as complete care. It is important that you follow up with a doctor, nurse practitioner, or physician???s program support assistant for ongoing care. If your symptoms [...] opioids can be used to help relieve xzdcvxia-ma-hyzibl pain and are often prescribed following a [...] be struggling with addiction, tell your health medicare nurse and ask for guidance or call [facility] (more content not included)... Normal [facility] Lactic Acidon 04-14-2025 Lactic Acid Lvl 1.5 mmol/L Normal 0.5-2.2 [facility] Comment on above: Performed By: #### 2 [id number] #### [facility] [address] [place] [address] Magnesiumon 04-14-2025 Magnesium [Mass/Vol] 2.2 mg/dL Normal 1.3-2.4 [facility] Comment on above: Performed By: #### 2 [id number] #### [facility] [address] [place] [address] No Panel InformationOrdered By: [facility] MICRO[facility]OLOG[facility] on 04-14-2025 Blood Culture Charcoal No growth at 4 days. Final to follow at 7 days. [facility] Blood Culture Charcoal No growth at 4 days. Final to follow at 7 days. [facility] PT & PTTon 04-14-2025 INR Coag (PPP) [Relative time] 0.98 {INR} Invalid Interpretation Code [facility] Comment on above: Result Comment: INR results are specifically intended to assess patients stabilized on long-term Anticoagulation therapy suggested INR???s ???Less Intensive Anticoagulation??? 2.0 ??? 3.0 Conventional Range 3.0 ??? 4.5 Performed By: #### 1 [id number] #### [facility] [address] [place] [address] PT 11.0 second(s) Normal 9.4-12.5 [facility] Comment on above: Result Comment: 15 [...] the same coagulation reagent and instrumentation as [facility]. Currently there are no coagulation studies available worldwide for children to 14 days, and no normal ranges. Performed By: #### 1 [id number] #### [facility] [address] [place] [address] PTT 33.3 second(s) Normal 25.1-36.5 [facility] Comment on above: Result Comment: Para [...] the same coagulation reagent and instrumentation as [facility]. Currently there are no coagulation studies available worldwide for children to 14 days, and no normal ranges. Heparin therapeutic range (represented by Anti-Factor Xa activity of 0.2 - 0.4 U/mL) corresponds to PTT of 56.6 - 109.0 sec. Performed By: #### 1 [id number] #### [facility] [address] [place] [address] Pre-Arrival Noteon Pre-Arrival Note Pre-Arrival Note Pre-Arrival Summary Name: , [facility] Current Date: 04/14/2025 16:54:02 EDT Gender: Male Date of : Age: 85 Pre-Arrival Type: EMS ETA: 04/14/2025 17:17:00 EDT Primary Care Physician: Presenting Problem: Pre-Arrival User: Abdoul Mcmillan Referring Source: Location: [place] Completion Date/Time: 04/14/2025 16:47:00 [facility] Emergency Department Pre-Hospital Report Form Vital Signs: Pre-Hospital Report: Treatment in Route: Response to Treatment: Misc. Issues: Normal [facility] Procalcitoninon 04-14-2025 Procalcitonin .06 ng/mL Normal .00-.50 [facility] Comment on above: Result Comment: <0.5 ng/mL [...] to 24 hours. Performed By: #### 2 [id number] #### [facility] [address] [place] [address] Troponin 0 Hr.on 04-14-2025 Troponin HS 18.30 pg/mL Normal 15.90-38.40 [facility] Comment on above: Result Comment: The 95% CI (Confidence Interval) PPV (Positive Predictive Value) for myocardial infarction in females is 38 pg/mL, in males 51 pg/mL. The results should be used in conjunction with clinical conditions of myocardial infarction. (Access High Sensitivity Troponin I Instructions For Use, [employer], June 2018) Performed By: #### 1 [id number] #### [facility] [address] [place] [address] UA with Cult Rflxon 04-14-20 25 UA Spec Desc Clean Catch Normal [facility] Comment on above: Performed By: #### 4 [id number] #### [facility] [address] [place] [address] XR Chest Single Viewon 04-14 XR Chest [...] DO Transcribed by: MARII Technologist: ADÁN Tovar [facility] eGFRon 04-14-2025 eGFR 36 mL/min/1.73 m2 Low >=59 [facility] Comment on above: Performed By: #### 1 [id number] #### [facility] [address] [place] [address] Office Visiton 03-12-2025 Follow-up visit [id number] Nadir Beth 1940 M Date Provider Department Center 03/12/2025 [facility] Family History Problem Relation Age of Onset Coronary artery disease Father Family Status - Relation Status Age at Father Level of Service:[address] CT OFFICE/OUTPATIENT ESTABLISHED HIGH MDM 40 MIN Normal [facility] HPon 02-28-2025 -- Attestation signed by Albaro Faulkner MD at 03/01/2025 6:06 PM I personally saw and examined the patient on the same date of service as resident/fellow Dr chilel. I discussed the findings and therapeutic plan with the resident/fellow Dr chilel. I agree with the documentation, except for any edits/updates below. Teaching Physician's Revisions: None Albaro Faulkner MD, [facility] History Of Present Illness Nadir Beth is a 85 y.o. male presenting with aortic stoneosis for MRAK. Past Medical History He has a past medical history of Atrial fibrillation ([facility]), CHF (congestive heart failure) ([facility]), Chronic kidney disease, COPD (chronic obstructive pulmonary disease) ([facility]), Coronary artery disease, Diabetes mellitus ([facility]), Heart valve disease, Hypertension, Pericardial effusion, [...] Father Allergies Iodinated contrast media, Nitroglycerin, and Ksbrmup-mcq-qmc reductase inhibitors Medications (Not in a hospital [...] Imaging Results Transesophageal echo (MARK) Addendum: [facility] [address] [place] [address] [phone] (fax) Transesophageal Echocardiogram-[facility] Name: NADIR BETH Study Date: 08/31/2023 02:31 PM B/P: 190 mmHg/86 mmHg HR: 92 bpm Date of : 1940 Location: [facility] Height: 71 in. Age: 83 year(s) Patient Room: Weight: 210 lb. Gender: Male Patient Status: OutPt BSA: 2.15 m2 Indication: Aortic Valve Stenosis Examination: MARK/Limited Doppler/CFI Image Quality: Excellent Patient Consent: Informed, written consent was obtained for the procedure Exam Location: A MARK was performed in the [employer] without complications Anesthesia Pharyngeal anesthesia with viscous Lidocaine Conclusions Left Ventricle: Global left ventricular systolic function is hyperdynamic. EF range is estimated at 65 % -70 %. No regional wall motion abnormality. Right Ventricle: The right ventricle appears normal in size. Normal right kari (more content not included)... Normal [facility] NURSNOTEon 02-28-2025 NURSNOTE Bedside swallow stud [...] off of unit with all of belongings. [facility] Telephoneon 02-21-2025 Telephone [id number] Nadir Beth 1940 M Date Provider Department Center 02/21/2025 [facility] Family History Problem Relation Age of Onset Coronary artery disease Father Family Status - Relation Status Age at Father [facility] Follow-Upon 01-03-2025 Follow-Up [id number] Nadir Beth 1940 M Date Provider Department Center 01/03/2025 321-RUTHIE LINDA [facility] NEPHRO Comprehensiv Family History Problem Relation Age of Onset Coronary artery disease Father Family Status - Relation Status Age at Father Level of Service:16690 CT OFFICE/OUTPATIENT ESTABLISHED MOD MDM 30 MIN () Reason for Visit and Comments: Follow-up [781343] [facility] Office Visiton 12-14-2024 Follow-up visit [id number] Nadir Beth 1940 M Date Provider Department Center 12/14/2024 [facility] Family History Problem Relation Age of Onset Coronary artery disease Father Family Status - Relation Status Age at Father Level of Service:00317 CT OFFICE/OUTPATIENT ESTABLISHED MOD MDM 30 MIN [facility] Ambulatory Visit Summaryon 0 12-04-2024 Ambulatory Visit [...] This Is Your Medications List acetaminophen-hydrocod one (Sabine 325 mg-5 mg oral tablet) ciprofloxacin (Cipro [...] LU OLMEDO PA-C Where: [facility] [address] [place] [address]- You Need to Schedule the Following Appointments Follow Up with ADRIAN GUSTAFSON, ADAN CHO When: In 6 months Comments: Can see DIAMANTE, w/PVR Where: Medications What How Much When Why Instructions Unchanged acetaminophen-hydrocod one (Sabine 325 mg-5 mg oral tablet) 1 Tablets [...] concerns Uncha (more content not included)... Normal [facility] Urology Office/Clinic Noteon 12-04-2024 Urology Office/Clinic [...] 7. 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) Pt presented to [facility] [...] penis. -Cont symptomatic monitoring 8. 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 Hx of cardioversion. Increased risk for bleeding. Elevated r (more content not included)... Normal [facility] Comment on above: Result Comment: Elec tronically Signed By: ADRIAN GUSTAFSON, MARQUIS\.br\Date and Time Signed: 12/04/24 09:21 EST\.br\Electronically Co-Signed By: Deepthi Kevin\.br\Date and Time Co-Signed: 12/04/24 09:11 EST Ambulatory Visit Summaryon 1 01-07-2024 Ambulatory Visit Summary Ambulatory Visit Summary NADIR BETH :1940 Visit Date:11/06/2024 Ambulatory Visit Instructions Your Care Team Attending Physician - SAMANTHA GUSTAFSON, Mejia Zimmer Primary Care Physician - Mikael GUSTAFSON, Van This Is Your Medications List NIFEdipine acetaminophen-hydrocod one (Sabine 325 mg-5 mg oral tablet) acyclovir apixaban [...] MARQUIS LOUISE MD Where: [facility] [address], [address] [place] [address]- Medications What How Much When Why Instructions Unchanged acetaminophen-hydrocod one (Sabine 325 mg-5 mg oral tablet) 1 Tablets [...] survey v (more content not included)... Normal [facility] Ambulatory Visit Summaryon 1 01-03-2024 Ambulatory Visit Summary Ambulatory Visit Summary NADIR BETH :1940 Visit Date:11/02/2024 Ambulatory Visit Instructions Your Diagnosis BPH with urinary obstruction Gross hematuria Incomplete bladder emptying OAB (overactive bladder) Acquired buried penis Balanitis Anticoagulated Your Care Team Attending Physician - ADRIAN GUSTAFSON, MARQUIS Primary Care Physician - Van Youssef MD This Is Your Medications List acetaminophen-hydrocod one (Sabine 325 mg-5 mg oral tablet) ciprofloxacin (Cipro [...] AM EST With: [facility] [address] [place] [address] [place] [address]- Wednesday 8:40 AM EST With: MARQUIS LOUISE MD Where: [facility] [address] [facility], [address] [place] [address]- You Need to Schedule the Following Appointments Follow Up with ADRIAN GUSTAFSON, MARQUIS, ADAN When: Where: Medications What How Much When Why Instructions Unchanged acetaminophen-hydrocod one (Sabine 325 mg-5 mg oral tablet) 1 Tablets [...] or co (more content not included)... Normal [facility] Urology Office/Clinic Noteon 11-02-2024 Urology Office/Clinic [...] with voice recognition artificial intelligence software, specifically [employer] and or [employer]. Substitutions may have occurred due to the [...] penis. -Cont symptomatic monitoring 7. Anticoagulated (Z79.01: [facility] (current) use of anticoagulants) Taking Eliquis, has restarted since UroLift. Hx of cardioversion. Increased risk for bleeding. Elevated risk for periop complications. Patient underwent a UroLift procedure approximately a week and a half ago. Unfortunately, he developed gross hematuria with clot retention that required hand irrigation with a three-way Palomares catheter. He presents today for an (more content not included)... Normal [facility] Comment on above: Result Comment: Elec [...] Is Your Medications List NIFEdipine acetaminophen-hydrocod one (Sabine 325 mg-5 mg oral tablet) acyclovir apixaban [...] MARQUIS LOUISE MD Where: [facility] [address], [address] [place] [address]- Medications What How Much When Why Instructions Unchanged acetaminophen-hydrocod one (Sabine 325 mg-5 mg oral tablet) 1 Tablets [...] emptying Naus (more content not included)... Normal [facility] Inpatient Patient Summaryon 10-23-2024 Inpatient Patient Summary Inpatient Patient Summary [place] [address] Clinical Summary Person Information Name: NADIR BETH Age: 84 Years : 1940 Sex: Male PCP: Van Youssef MD Marital Status: Race: White Ethnicity: Non- or Language: Malawian Visit Id: Visit Reason: BPH WITH URINARY OBSTRUCTION, INCOMPLETE BLADDER EMPTYING Speciality: Acuity: Enc Type: Outpatient Med Service: Surgery Arrival: 10/23/2024 13:48:15 Discharge: Dispo Type: Address: [address] [place] [phone] Provider Notes: Diagnosis: Problems Active BPH with [...] This Visit Final Med List: acetaminophen-hydrocod one (Sabine 325 mg-5 mg oral tablet) 1 Tablets [...] Patient Education Information: Benign Prostatic Hyperplasia Normal [facility] Main OR Intraoperative Recor don 10-23-2024 Main OR Intraoperative Record Main OR Intraoperative Record IntraOp Document Type FTURO Summary Primary Physician: MARQUIS LOUISE MD Finalized Date/Time: 10/23/24 15:03:19 Pt. Name: NADIR BETH/Sex: 1940 Male Med Rec #: [id number] Physician: MARQUIS LOUISE MD Financial #: [id number] Pt. Type: O Room/Bed: / Admit/Disch: 10/23/24 [...] Ana CHO Role Performed Surgeon - Primary Software Support Analyst - Primary Scrub - Primary Time [...] Implant Implant Identification Description UROLIFT Lot Number [id number] Dispenser Operator UROLIFT Catalog ???# UL2-C Expiration Date [...] Oliva Goel (more content not included)... Normal [facility] Main OR Preoperative Recordo n 10-23-2024 Main OR Preoperative Record Main OR Preoperative Record Holding Area Document Type FTURO Summary Primary Physician: MARQUIS LOUISE MD Finalized Date/Time: 10/23/24 14:17:30 Pt. Name: KIRIT NADIR L /Sex: 1940 Male Med Rec #: [id number] Physician: MARQUIS LOUISE MD Financial #: [id number] Pt. Type: O Room/Bed: / Admit/Disch: 10/23/24 [...] Complaints of Pain: No Skin Integrity Intact, Inkerman, Warm, & Dry Vitals - EU Blood Pressure 152/78 Pulse 84 bpm Respirations 18 br/min SPO2 90 % Additional None RN Reviewed Yes Specimens Collected Last Modified By: Oliva Goel 10/23/24 14:17:29 Finalized By: Oliva Goel Document Signatures Signed By: Preeti Kaur LPN 10/23/24 14:05 Oliva Goel 10/23/24 14:17 Normal [facility] Operative Reporton 4 Operative Report Operative [...] urethral meatus. We then placed the 20 [place] cystoscope into the bladder. Bilobar hyperplasia was [...] able to easily navigate with a 20 [place] scope. Scope was then removed and an 18 [place] Palomares catheter was placed with return of light pink urine and no clots noted. This concluded the procedure. Patient was then transferred to PACU in stable condition. PLAN: Patient will follow-up in 2 days for Palomares catheter removal. 10 cc in the balloon Follow-up in 6 to 8 weeks with IPSS at that time Normal [facility] Comment on above: Result Comment: Elec tronically Signed By: MARQUIS LOUISE MD\.br\Date and Time Signed: 10/23/24 15:06 EST Outpatient Surgery Discharge Instructionon 10-23-2024 Outpatient Surgery Discharge Instruction Outpatient Surgery Discharge Instruction [place] [id number] Patient Discharge Instructions PERSON INFORMATION Name: NADIR [...] amount of (more content not included)... Normal [facility] Ambulatory Visit Summaryon 1 12-02-2023 Ambulatory Visit [...] Survey Yo (more content not included)... Normal [facility] Ambulatory Visit Summary Ambulatory Visit Summary [...] us for (more content not included)... Normal [facility] Urology Office/Clinic Noteon 10-02-2024 Urology Office/Clinic [...] with voice recognition artificial intelligence software, specifically [employer] and or [employer]. Substitutions may have occurred due to the [...] -Cipro 500mg bid start the day prior, Sabine 325-5mg #2 q6hrs as needed for pain, [...] and Lasix. -Dm control 6. Anticoagulated (Z79.01: [facility] (current) use of anticoagulants) Taking Eliquis. Hx of cardioversion. Elevated risk for periop complications. Based on patient's age, multiple medical comorbidities and his prostate size we discussed extensively that he will benefit most likely from a UroLift procedure. He is amenable to (more content not included)... Normal [facility] Comment on above: Result Comment: Elec tronically Signed By: ADRIAN GUSTAFSON, MARQUIS\.br\Date and Time Signed: 10/02/24 11:43 EST\.br\Electronically Co-Signed By: Roxy Gatica\.br\Date and Time Co-Signed: 10/02/24 11:21 EST\.br\Electronically Co-Signed By: Roxy Gatica\.br\Date and Time Co-Signed: 10/02/24 11:22 EST\.br\Electronically Co-Signed By: Roxy Gatica\.br\Date and Time Co-Signed: 10/02/24 11:23 EST Inpatient Patient Summaryon 09-25-2024 Inpatient Patient Summary Inpatient Patient Summary [place] [address] Clinical Summary Person Information Name: NADIR BETH Age: 84 Years : 1940 Sex: Male PCP: Van Youssef MD Marital Status: Race: White Ethnicity: Non- or Language: Malawian Visit Id: Visit Reason: ENLARGED PROSTATE WITH URINARY OBSTRUCTION, INCOMPLETE BLADDER EMPTYING Speciality: Acuity: Enc Type: Outpatient Med Service: Surgery Arrival: 09/25/2024 11:42:27 Discharge: Dispo Type: Address: [address] [place] [address] [phone] Provider Notes: Diagnosis: Problems Active BPH with [...] With: Address: When: MARQUIS LOUISE [address] [place] [address] [phone] Business (1) Comments: Follow-up in the office in 2 weeks to discuss next plan With: Address: When: MARQUIS LOUISE [address] [place] [address] [phone] Business (1) Patient Education Information: Benign Prostatic Hyperplasia Normal [facility] Main OR Intraoperative Recor don 09-25-2024 Main OR Intraoperative Record Main OR Intraoperative Record IntraOp Document Type FTURO Summary Primary Physician: MARQUIS LOUISE MD Finalized Date/Time: 09/25/24 13:23:58 Pt. Name: NADIR BETH/Sex: 1940 Male Med Rec #: [id number] Physician: MARQUIS LOUISE MD Financial #: [id number] Pt. Type: O Room/Bed: / Admit/Disch: 09/25/24 [...] C KWABENA Role Performed Surgeon - Primary Software Support Analyst - Primary Scrub - Primary Time [...] 09/25/24 13:23 Oliva Goel 09/25/24 13:23 [facility] Main OR Preoperative Recordo n 09-25-2024 Main OR Preoperative Record Main OR Preoperative Record Holding Area Document Type FTURO Summary Primary Physician: MARQUIS LOUISE MD Finalized Date/Time: 09/25/24 13:04:51 Pt. Name: NADIR BETH /Sex: 1940 Male Med Rec #: [id number] Physician: MARQUIS LOUISE MD Financial #: [id number] Pt. Type: O Room/Bed: / Admit/Disch: 09/25/24 [...] Complaints of Pain: No Skin Integrity Intact, Ink[place], Warm, & Dry Vitals - EU Blood Pressure Pulse Respirations SPO2 Additional None RN Reviewed Yes Specimens Collected Last Modified By: Oliva Goel 09/25/24 13:04:50 Finalized By: Oliva Goel Document Signatures Signed By: Preeti Kaur LPN 09/25/24 12:49 Oliva Goel 09/25/24 13:04 Normal [facility] Operative Reporton 4 Operative Report Operative [...] steps Impression and Plan Counseled: Family. Normal [facility] Comment on above: Result Comment: Elec tronically Signed By: MARQUIS LOUISE MD\.br\Date and Time Signed: 09/25/24 13:27 EST Outpatient Surgery Discharge Instructionon 09-25-2024 Outpatient Surgery Discharge Instruction Outpatient Surgery Discharge Instruction [address] [address] Patient Discharge Instructions PERSON INFORMATION [...] Follow up: With: Address: When: MARQUIS LOUISE [address] [place] [address] [phone] [employer] (1) Comments: Follow-up in the office in 2 weeks to discuss next plan With: Address: When: MARQUIS LOUISE [address] [place] [address] [phone] [employer] (1) Comment: PATIENT EDUCATION INFORMATION Instructions: Benign [...] frequen (more content not included)... Normal [facility] No Panel Informationon 08-24 [facility] Ambulatory Visit Summaryon 0 08-08-2024 Ambulatory [...] 525 mg (more content not included)... Normal [facility] Urology Office/Clinic Noteon 08-08-2024 Urology Office/Clinic [...] urinary channel, (more content not included)... Normal [facility] Comment on above: Result Comment: Elec tronically Signed By: MARQUIS LOUISE MD\.br\Date and Time Signed: 08/08/24 11:05 EDT\.br\Electronically Co-Signed By: Roxy Gatica\.br\Date and Time Co-Signed: 08/08/24 10:46 EDT\.br\Electronically Co-Signed By: Roxy Gatica\.br\Date and Time Co-Signed: 08/08/24 10:53 EDT Office Visiton 07-05-2024 Follow-up visit [id number] Nadir lin Joy 1940 M Date Provider Department Center 07/05/2024 [facility] NEPHRO Comprehensiv Family History Problem Relation Age of Onset Coronary artery disease Father Family Status - Relation Status Age at Father Level of Service:32036 CT OFFICE/OUTPATIENT ESTABLISHED MOD MDM 30 MIN Reason for Visit and Comments: Follow-up [251462] Normal [facility] 36on 06-20-2024 36 Regarding echo resul [...] Echo order faxed to [facility]. Normal [facility] MICRO OTHER TESTSOrdered By: Francisco Bolanos on 04-15-2023 Fecal WBC Lactoferrin Negative (04/15/23 7:00 AM) Normal Negative [facility] CHEMISTRYOrdered By: SYSTEM SYSTEM on [...] 10 - 20 [facility]isol HEMATOLOGYOrdered By: Tã Em Bé SYSTEM on 04-13-2023 Basophils/100 WBC (Bld) 0.9 [...] [Mass/Vol] 3.3 g/dL Critically low 3.4-5.0 [facility] Comment on above: Performed By: #### M G, BMP, PHOS #### [facility] [address] [place] [address] Dr. David Magana GLYCOHEMOGLOBIN A1Con 2022 ADA RECOMMENDATION SEE BELOW Normal [facility] Comment on above: Result Comment: ADA RECOMMENDED LIMIT 4.0 - 6.0 ADA THERAPEUTIC TARGET < 7.0 ACTION SUGGESTED > 7.0 Performed By: #### A 1C #### [facility] [address] [place] [address] Dr. David Magana Glucose [Mass/Vol] 108 mg/dL Normal [facility] Comment on above: Performed By: #### A 1C #### [facility] [address] [place] [address] Dr. David Magana HbA1c (Bld) [Mass fraction] 5.4 % Normal 4.5-6.2 [facility] Comment on above: Performed By: #### A 1C #### [facility] [address] [place] [address] Dr. David Magana PHOSPHORUSon 03-24-2023 Phosphate [Mass/Vol] 3.6 mg/dL Normal 2.6-4.7 [facility] Comment on above: Performed By: #### M G, BMP, PHOS #### [facility] [address] [place] [address] Dr. David Magana PROF CHEM 8 (BAS METB)on Anion gap [Moles/Vol] 11.6 mmol/L Normal [facility] Comment on above: Performed By: #### M G, BMP, PHOS #### [facility] [address] [place] [address] Dr. David Magana Calcium [Mass/Vol] 8.9 mg/dL Normal 8.5-10.1 [facility] Comment on above: Performed By: #### M G, BMP, PHOS #### [facility] [address] [place] [address] [address] David Magana Chloride [Moles/Vol] 107 mmol/L Normal 98-107 [facility] Comment on above: Performed By: #### M G, BMP, PHOS #### [facility] [address] [place] [address] [address] David Magana CO2 [Moles/Vol] 30.8 mmol/L Normal 21.0-32.0 [facility] Comment on above: Performed By: #### M G, BMP, PHOS #### [facility] [address] [place] [address] Dr. David Magana Creatinine [Mass/Vol] 1.67 mg/dL Critically high 0.70-1.30 [facility] Comment on above: Performed By: #### M G, BMP, PHOS #### [facility] [address] [place] [address] [address] David Magana EGFR-AF ICELANDIC 48 mL/min/1.73m2 Critically low >=60 [facility] Comment on above: Performed By: #### ERICK Jacques, PHOS #### [facility] [address] [place] [address] Dr. David Magana EGFR-NON AF ICELANDIC 39 mL/min/1.73m2 Critically low >=60 [facility] Comment on above: Performed By: #### ERICK Jacques, PHOS #### [facility] [address] [place] [address] [address] David Magana Glucose [Mass/Vol] 128 mg/dL Critically high 74-[address] [facility] Comment on above: Performed By: #### ERICK Jacques, PHOS #### [facility] [address] [place] [address] Dr. David Magana Potassium [Moles/Vol] 4.4 mmol/L Normal 3.5-5.1 [facility] Comment on above: Performed By: #### ERICK Jacques, PHOS #### [facility] [address] [place] [address] Dr. David Magana Sodium [Moles/Vol] 145 mmol/L Normal 136-145 [facility] Comment on above: Performed By: #### ERICK Jacques, PHOS #### [facility] [address] [place] [address] Dr. David Magana Urea nitrogen [Mass/Vol] 25.0 mg/dL Critically high 7.0-18.0 [facility] Comment on above: Performed By: #### ERICK Jacques, PHOS #### [facility] [address] [place] [address] Dr. David Magana Urea nitrogen/Creatinine [Mass ratio] 15.0 mg/mg Normal [facility] Comment on above: Performed By: #### ERICK Jacques, PHOS #### [facility] [address] [place] [address] Dr. David Magana VITAMIN D 25 OHon 03-24-2023 VIT D 25-OH 11.6 ng/mL Normal [facility] Comment on above: Performed By: #### C BC #### [facility] [address] [place] [address] Dr. David Magana VIT D RANGES SEE BELOW Normal [facility] Comment on above: Result Comment: <20 ng/mL Vit D deficient 20 - <30 ng/mL Vit D insufficient 30 - 100 ng/mL Vit D sufficient >100 ng/mL Potential Toxicity Performed By: #### C BC #### [facility] [address] [place] [address] Dr. David Magana CBC AUTO DIFFon 02-27-2023 BASO # 0.0 103/ul Normal 0.0-0.1 [facility] Comment on above: Performed By: #### M ERICK Faith, PHOS #### [facility] [address] [place] [address] Dr. David Magana Basophils/100 WBC (Bld) 0.5 % Normal 0.2-2.0 [facility] Comment on above: Performed By: #### ERICK Jacques, PHOS #### [facility] [address] [place] [address] Dr. David Magana EO # 0.7 103/ul Normal 0.0-0.7 [facility] Comment on above: Performed By: #### ERICK Jacques, PHOS #### [facility] [address] [place] [address] Dr. David Magana Eosinophils/100 WBC (Bld) 9.3 % Critically high 0.9-7.0 [facility] Comment on above: Performed By: #### ERICK Jacques, PHOS #### [facility] [address] [place] [address] Dr. David Magana Erythrocyte distribution width (RBC) [Ratio] 14.6 % Normal 11.0-15.0 [facility] Comment on above: Performed By: #### M ERICK Faith, PHOS #### [facility] [address] [place] [address] Dr. David Magana Hematocrit (Bld) [Volume fraction] 41.5 % Critically low 42.0-54.0 [facility] Comment on above: Performed By: #### M G, BMP, PHOS #### [facility] [address] [place] [address] [address] David Magana Hemoglobin (Bld) [Mass/Vol] 13.9 g/dL Critically low 14.0-18.0 [facility] Comment on above: Performed By: #### M G, BMP, PHOS #### [facility] [address] [place] [address] Dr. David Magana IG # 0.02 10e3/ul Normal 0.00-0.03 [facility] Comment on above: Performed By: #### M G, BMP, PHOS #### [facility] [address] [place] [address] Dr. David Magana IG % 0.3 % Normal 0.0-0.5 [facility] Comment on above: Performed By: #### M G, BMP, PHOS #### [facility] [address] [place] [address] Dr. David Magana LYMPH # 1.0 103/ul Critically low 1.2-3.8 [facility] Comment on above: Performed By: #### M G, BMP, PHOS #### [facility] [address] [place] [address] Dr. David Magana Lymphocytes/100 WBC (Bld) 13.0 % Critically low 20.5-60.0 [facility] Comment on above: Performed By: #### M G, BMP, PHOS #### [facility] [address] [place] [address] Dr. David Magana MANUAL DIFF REQ NO Normal [facility] Comment on above: Performed By: #### M G, BMP, PHOS #### [facility] [address] [place] [address] [address] David Magana MCH (RBC) [Entitic mass] 33.5 pg Normal 25.9-34.0 [facility] Comment on above: Performed By: #### M G, BMP, PHOS #### [facility] [address] [place] [address] Dr. David Magana MCHC (RBC) [Mass/Vol] 33.5 g/dL Normal 29.9-35.2 [facility] Comment on above: Performed By: #### M ERICK Faith, PHOS #### [facility] [address] [place] [address] Dr. David Magana MCV (RBC) [Entitic vol] 100.0 fL Critically high 80.0-94.0 [facility] Comment on above: Performed By: #### ERICK Jacques, PHOS #### [facility] [address] [place] [address] Dr. David Magana MONO # 0.8 103/ul Normal 0.3-0.8 [facility] Comment on above: Performed By: #### ERICK Jacques, PHOS #### [facility] [address] [place] [address] Dr. David Magana Monocytes/100 WBC (Bld) 10.1 % Normal 1.7-12.0 [facility] Comment on above: Performed By: #### ERICK Jacques, PHOS #### [facility] [address] [place] [address] Dr. David Magana NEUT # 5.0 103/ul Normal 1.4-6.5 [facility] Comment on above: Performed By: #### ERICK Jacques, PHOS #### [facility] [address] [place] [address] Dr. David Magana Neutrophils/100 WBC (Bld) 66.8 % Normal 43.0-75.0 [facility] Comment on above: Performed By: #### ERICK Jacques, PHOS #### [facility] [address] [place] [address] Dr. David Magana Platelet mean volume (Bld) [Entitic vol] 11.2 fL Normal 9.5-13.5 [facility] Comment on above: Performed By: #### ERICK Jacques, PHOS #### [facility] [address] [place] [address] Dr. David Magana PLT 187 103/ul Normal 150-450 [facility] Comment on above: Performed By: #### ERICK Jacques, PHOS #### [facility] [address] [place] [address] Dr. David Magana RBC 4.15 106/ul Critically low 4.70-6.10 [facility] Comment on above: Performed By: #### M ERICK Faith, PHOS #### [facility] [address] [place] [address] Dr. David Magana WBC 7.5 103/ul Normal 4.0-11.0 [facility] Comment on above: Performed By: #### M ERICK Faith PHOS #### [facility] [address] [place] [address] Dr. David Magana PROF 14(COMP METB)on 023 Albumin [Mass/Vol] 3.5 g/dL Normal 3.4-5.0 [facility] Comment on above: Performed By: #### A 1C #### [facility] [address] [place] [address] Dr. David Magana Albumin/Globulin [Mass ratio] 1.1 {ratio} Normal [facility] Comment on above: Performed By: #### A 1C #### [facility] [address] [place] [address] Dr. David Magana ALP [Catalytic activity/Vol] 76 U/L Normal 46-116 [facility] Comment on above: Performed By: #### A 1C #### [facility] [address] [place] [address] Dr. David Magana ALT [Catalytic activity/Vol] 23 U/L Normal 16-63 [facility] Comment on above: Performed By: #### A 1C #### [facility] [address] [place] [address] Dr. David Magana Anion gap [Moles/Vol] 13.1 mmol/L Normal [facility] Comment on above: Performed By: #### A 1C #### [facility] [address] [place] [address] Dr. David Magana AST [Catalytic activity/Vol] 17 U/L Normal 15-37 [facility] Comment on above: Performed By: #### A 1C #### [facility] [address] [place] [address] [address] David Magana Bilirubin [Mass/Vol] 0.7 mg/dL Normal 0.2-1.0 [facility] Comment on above: Performed By: #### A 1C #### [facility] [address] [place] [address] [address] David Magana Calcium [Mass/Vol] 9.0 mg/dL Normal 8.5-10.1 [facility] Comment on above: Performed By: #### A 1C #### [facility] [address] [place] [address] [address] David Magana Chloride [Moles/Vol] 105 mmol/L Normal 98-107 [facility] Comment on above: Performed By: #### A 1C #### [facility] [address] [place] [address] Dr. David Magana CO2 [Moles/Vol] 29.0 mmol/L Normal 21.0-32.0 [facility] Comment on above: Performed By: #### A 1C #### [facility] [address] [place] [address] Dr. David Magana Creatinine [Mass/Vol] 1.77 mg/dL Critically high 0.70-1.30 [facility] Comment on above: Performed By: #### A 1C #### [facility] [address] [address] [address] David Magana EGFR-AF ICELANDIC 45 mL/min/1.73m2 Critically low >=60 [facility] Comment on above: Performed By: #### A 1C #### [facility] [address] [place] [address] Dr. David Magana EGFR-NON AF ICELANDIC 37 mL/min/1.73m2 Critically low >=60 [facility] Comment on above: Performed By: #### A 1C #### [facility] [address] [place] [address] Dr. David Magana Globulin (S) [Mass/Vol] 3.3 g/dL Normal [facility] Comment on above: Performed By: #### A 1C #### [facility] [address] [place] [address] [address] David Magana Glucose [Mass/Vol] 135 mg/dL Critically high 74-[address] [facility] Comment on above: Performed By: #### A 1C #### [facility] [address] [place] [address] [address] David Magana Potassium [Moles/Vol] 4.1 mmol/L Normal 3.5-5.1 [facility] Comment on above: Performed By: #### A 1C #### [facility] [address] [place] [address] [address] David Magana Protein [Mass/Vol] 6.8 g/dL Normal 6.4-8.2 [facility] Comment on above: Performed By: #### A 1C #### [facility] [address] [place] [address] [address] David Magana Sodium [Moles/Vol] 143 mmol/L Normal 136-145 [facility] Comment on above: Performed By: #### A 1C #### [facility] [address] [address] [address] David Magana Urea nitrogen [Mass/Vol] 31.0 mg/dL Critically high 7.0-18.0 [facility] Comment on above: Performed By: #### A 1C #### [facility] [address] [address] [address] David Magana Urea nitrogen/Creatinine [Mass ratio] 17.5 mg/mg Normal [facility] Comment on above: Performed By: #### A 1C #### [facility] [address] [address] [address] David Magana PROTIMEon 02-27-2023 INR Coag (PPP) [Relative time] 0.99 {INR} Normal [facility] Comment on above: Performed By: #### A 1C #### [facility] [address] [address] [address] David Magana INR GUIDELINES SEE BELOW Normal [facility] Comment on above: Result Comment: IDANIA RED INR: 2.0 - 3.0 CONDITIONS NOT LISTED BELOW 2.5 - 3.5 FOR PROSTHETIC HEART VALVE REPLACEMENT 2.5 - 3.5 RECURRENT THROMBOSIS Performed By: #### A 1C #### [facility] [address] [place] [address] Dr. David Magana PT Coag (PPP) [Time] 10.5 s Normal 9.0-11.6 [facility] Comment on above: Performed By: #### A 1C #### [facility] [address] [place] [address] Dr. David Magana PTTon 02-27-2023 aPTT Coag (Bld) [Time] 33.0 s Normal 22.3-36.2 [facility] Comment on above: Performed By: #### P OCGLUC #### [facility] [address] [place] [address] Dr. David Magana ALBUMINon 12-28-2022 Albumin [Mass/Vol] 3.6 g/dL Normal 3.4-5.0 [facility] Comment on above: Performed By: #### C BC #### [facility] [address] [place] [address] Dr. David Magana GLYCOHEMOGLOBIN A1Con 2022 ADA RECOMMENDATION SEE BELOW Normal [facility] Comment on above: Result Comment: ADA RECOMMENDED LIMIT 4.0 - 6.0 ADA THERAPEUTIC TARGET < 7.0 ACTION SUGGESTED > 7.0 Performed By: #### P OCGLUC #### [facility] [address] [place] [address] Dr. David Magana Glucose [Mass/Vol] 140 mg/dL Normal [facility] Comment on above: Performed By: #### P OCGLUC #### [facility] [address] [place] [address] Dr. David Magana HbA1c (Bld) [Mass fraction] 6.5 % Critically high 4.5-6.2 [facility] Comment on above: Performed By: #### P OCGLUC #### [facility] [address] [place] [address] Dr. David Magana MAGNESIUMon 12-28-2022 Magnesium [Mass/Vol] 2.3 mg/dL Normal 1.8-2.4 [facility] Comment on above: Performed By: #### P OCGLUC #### [facility] [address] [address] [address] David Magana PROF CHEM 8 (BAS METB)on Anion gap [Moles/Vol] 13.2 mmol/L Normal [facility] Comment on above: Performed By: #### P OCGLUC #### [facility] [address] [address] [address] David Magana Calcium [Mass/Vol] 9.0 mg/dL Normal 8.5-10.1 [facility] Comment on above: Performed By: #### P OCGLUC #### [facility] [address] [address] [address] David Magana Chloride [Moles/Vol] 105 mmol/L Normal 98-107 [facility] Comment on above: Performed By: #### P OCGLUC #### [facility] [address] [address] [address] David Magana CO2 [Moles/Vol] 28.9 mmol/L Normal 21.0-32.0 [facility] Comment on above: Performed By: #### P OCGLUC #### [facility] [address] [address] [address] David Magana Creatinine [Mass/Vol] 1.66 mg/dL Critically high 0.70-1.30 [facility] Comment on above: Performed By: #### P OCGLUC #### [facility] [address] [address] [address] David Magana EGFR-AF ICELANDIC 48 mL/min/1.73m2 Critically low >=60 [facility] Comment on above: Performed By: #### P OCGLUC #### [facility] [address] [address] [address] David Magana EGFR-NON AF ICELANDIC 40 mL/min/1.73m2 Critically low >=60 [facility] Comment on above: Performed By: #### P OCGLUC #### [facility] [address] [address] [address] David Magana Glucose [Mass/Vol] 123 mg/dL Critically high 74-[address] [facility] Comment on above: Performed By: #### P OCGLUC #### [facility] [address] [address] [address] David Magana Potassium [Moles/Vol] 4.1 mmol/L Normal 3.5-5.1 [facility] Comment on above: Performed By: #### P OCGLUC #### [facility] [address] [address] [address] David Magana Sodium [Moles/Vol] 143 mmol/L Normal 136-145 [facility] Comment on above: Performed By: #### P OCGLUC #### [facility] [address] [address] [address] David Magana Urea nitrogen [Mass/Vol] 29.0 mg/dL Critically high 7.0-18.0 [facility] Comment on above: Performed By: #### P OCGLUC #### [facility] [address] [address] [address] David Magana Urea nitrogen/Creatinine [Mass ratio] 17.5 mg/mg Normal [facility] Comment on above: Performed By: #### P OCGLUC #### [facility] [address] [address] [address] David Magana URINE T PROTEIN CREAT RATIOo n 12-28-2022 UR TOTAL PROTEIN <6.0 Normal <=12.0 [facility] Comment on above: Performed By: #### M G, BMP, PHOS #### [facility] [address] [address] [address] David Magana URINE CREAT 41.21 mg/dL Normal 20.00-300.00 [facility] Comment on above: Performed By: #### M G, BMP, PHOS #### [facility] [address] [place] [address] Dr. David Magana ALBUMINon 11-16-2022 Albumin [Mass/Vol] 3.3 g/dL Critically low 3.4-5.0 [facility] Comment on above: Performed By: #### C BC #### [facility] [address] [place] [address] Dr. David Magana CREATININE URINEon URINE CREAT 19.69 mg/dL Critically low 20.00-300.00 [facility] Comment on above: Performed By: #### M ERICK Faith PHOS #### [facility] [address] [place] [address] Dr. David Magana HEMOGLOBINon 11-16-2022 Hemoglobin (Bld) [Mass/Vol] 14.9 g/dL Normal 14.0-18.0 [facility] Comment on above: Performed By: #### M ERICK Faith PHOS #### [facility] [address] [place] [address] Dr. David Magana MAGNESIUMon 11-16-2022 Magnesium [Mass/Vol] 2.2 mg/dL Normal 1.8-2.4 [facility] Comment on above: Performed By: #### C BC #### [facility] [address] [place] [address] Dr. David Magana PHOSPHORUSon 11-16-2022 Phosphate [Mass/Vol] 3.9 mg/dL Normal 2.6-4.7 [facility] Comment on above: Performed By: #### C BC #### [facility] [address] [place] [address] Dr. David Magana PROF CHEM 8 (BAS METB)on Anion gap [Moles/Vol] 11.9 mmol/L Normal [facility] Comment on above: Performed By: #### C BC #### [facility] [address] [place] [address] Dr. David Magana Calcium [Mass/Vol] 8.8 mg/dL Normal 8.5-10.1 [facility] Comment on above: Performed By: #### C BC #### [facility] [address] [place] [address] Dr. David Magana Chloride [Moles/Vol] 104 mmol/L Normal 98-107 [facility] Comment on above: Performed By: #### C BC #### [facility] [address] [place] [address] Dr. David Magana CO2 [Moles/Vol] 27.4 mmol/L Normal 21.0-32.0 [facility] Comment on above: Performed By: #### C BC #### [facility] [address] [address] [address] David Magana Creatinine [Mass/Vol] 1.68 mg/dL Critically high 0.70-1.30 [facility] Comment on above: Performed By: #### C BC #### [facility] [address] [address] [address] David Magana EGFR-AF ICELANDIC 48 mL/min/1.73m2 Critically low >=60 [facility] Comment on above: Performed By: #### C BC #### [facility] [address] [address] [address] David Magana EGFR-NON AF ICELANDIC 39 mL/min/1.73m2 Critically low >=60 [facility] Comment on above: Performed By: #### C BC #### [facility] [address] [address] [address] David Magana Glucose [Mass/Vol] 212 mg/dL Critically high 74-106 [facility] Comment on above: Performed By: #### C BC #### [facility] [address] [address] [address] David Magana Potassium [Moles/Vol] 4.3 mmol/L Normal 3.5-5.1 [facility] Comment on above: Performed By: #### C BC #### [facility] [address] [address] [address] David Magana Sodium [Moles/Vol] 139 mmol/L Normal 136-145 [facility] Comment on above: Performed By: #### C BC #### [facility] [address] [address] [address] David Magana Urea nitrogen [Mass/Vol] 25.0 mg/dL Critically high 7.0-18.0 [facility] Comment on above: Performed By: #### C BC #### [facility] [address] [address] [address] David Magana Urea nitrogen/Creatinine [Mass ratio] 14.9 mg/mg Normal [facility] Comment on above: Performed By: #### C BC #### [facility] [address] [place] [address] Dr. David Magana PROTEIN RAND URINEon 023 UR PROT <5.0 Normal <=11.9 [facility] Comment on above: Performed By: #### M ERICK Faith, PHOS #### [facility] [address] [place] [address] Dr. David Magana US KARI DOP LEG [...] CLOVER PEREZ Date: 2022-11-02 16:21 Normal [facility] BNPon 07-22-2022 Natriuretic peptide B (Bld) [Mass/Vol] 2143.0 pg/mL Critically high <=1,800.0 [facility] Comment on above: Performed By: #### ERICK Jacques, PHOS #### [facility] [address] [place] [address] Dr. David Magana CBC AUTO DIFFon 07-22-2022 BASO # 0.0 103/ul Normal 0.0-0.1 [facility] Comment on above: Performed By: #### A 1C #### [facility] [address] [place] [address] Dr. David Magana Basophils/100 WBC (Bld) 0.3 % Normal 0.2-2.0 [facility] Comment on above: Performed By: #### A 1C #### [facility] [address] [place] [address] Dr. David Magana EO # 0.3 103/ul Normal 0.0-0.7 [facility] Comment on above: Performed By: #### A 1C #### [facility] [address] [address] [address] David Magana Eosinophils/100 WBC (Bld) 2.4 % Normal 0.9-7.0 [facility] Comment on above: Performed By: #### A 1C #### [facility] [address] [address] [address] David Magana Erythrocyte distribution width (RBC) [Ratio] 13.4 % Normal 11.0-15.0 [facility] Comment on above: Performed By: #### A 1C #### [facility] [address] [address] [address] David Magana Hematocrit (Bld) [Volume fraction] 42.7 % Normal 42.0-54.0 [facility] Comment on above: Performed By: #### A 1C #### [facility] [address] [place] [address] Dr. David Magana Hemoglobin (Bld) [Mass/Vol] 14.2 g/dL Normal 14.0-18.0 [facility] Comment on above: Performed By: #### A 1C #### [facility] [address] [place] [address] Dr. David Magana IG # 0.18 10e3/ul Critically high 0.00-0.03 [facility] Comment on above: Performed By: #### A 1C #### [facility] [address] [address] [address] David Magana IG % 1.6 % Critically high 0.0-0.5 [facility] Comment on above: Performed By: #### A 1C #### [facility] [address] [address] [address] David Magana LYMPH # 0.9 103/ul Critically low 1.2-3.8 [facility] Comment on above: Performed By: #### A 1C #### [facility] [address] [place] [address] Dr. David Magana Lymphocytes/100 WBC (Bld) 8.1 % Critically low 20.5-60.0 [facility] Comment on above: Performed By: #### A 1C #### [facility] [address] [place] [address] Dr. David Magana MANUAL DIFF REQ NO Normal [facility] Comment on above: Performed By: #### A 1C #### [facility] [address] [place] [address] Dr. David Magana MCH (RBC) [Entitic mass] 33.3 pg Normal 25.9-34.0 [facility] Comment on above: Performed By: #### A 1C #### [facility] [address] [place] [address] Dr. David Magana MCHC (RBC) [Mass/Vol] 33.3 g/dL Normal 29.9-35.2 [facility] Comment on above: Performed By: #### A 1C #### [facility] [address] [place] [address] Dr. David Magana MCV (RBC) [Entitic vol] 100.2 fL Critically high 80.0-94.0 [facility] Comment on above: Performed By: #### A 1C #### [facility] [address] [place] [address] Dr. David Magana MONO # 1.2 103/ul Critically high 0.3-0.8 [facility] Comment on above: Performed By: #### A 1C #### [facility] [address] [place] [address] Dr. David Magana Monocytes/100 WBC (Bld) 10.5 % Normal 1.7-12.0 [facility] Comment on above: Performed By: #### A 1C #### [facility] [address] [place] [address] Dr. David Magana NEUT # 8.9 103/ul Critically high 1.4-6.5 [facility] Comment on above: Performed By: #### A 1C #### [facility] [address] [place] [address] Dr. David Magana Neutrophils/100 WBC (Bld) 77.1 % Critically high 43.0-75.0 [facility] Comment on above: Performed By: #### A 1C #### [facility] [address] [address] [address] David Magana Platelet mean volume (Bld) [Entitic vol] 11.3 fL Normal 9.5-13.5 [facility] Comment on above: Performed By: #### A 1C #### [facility] [address] [address] [address] David Magana PLT 175 103/ul Normal 150-450 [facility] Comment on above: Performed By: #### A 1C #### [facility] [address] [address] [address] David Magana RBC 4.26 106/ul Critically low 4.70-6.10 [facility] Comment on above: Performed By: #### A 1C #### [facility] [address] [place] [address] Dr. David Magana WBC 11.5 103/ul Critically high 4.0-11.0 [facility] Comment on above: Performed By: #### A 1C #### [facility] [address] [place] [address] Dr. David Magana PROF 14(COMP METB)on 022 Albumin [Mass/Vol] 2.6 g/dL Critically low 3.4-5.0 [facility] Comment on above: Performed By: #### M ERICK Faith, PHOS #### [facility] [address] [place] [address] Dr. David Magana Albumin/Globulin [Mass ratio] 0.9 {ratio} Normal [facility] Comment on above: Performed By: #### M ERICK Faith, PHOS #### [facility] [address] [address] [address] David Magana ALP [Catalytic activity/Vol] 49 U/L Normal 46-116 [facility] Comment on above: Performed By: #### M ERICK Faith, PHOS #### [facility] [address] [place] [address] Dr. David Magana ALT [Catalytic activity/Vol] 25 U/L Normal 16-63 [facility] Comment on above: Performed By: #### M ERICK Faith, PHOS #### [facility] [address] [address] [address] David Magana Anion gap [Moles/Vol] 12.8 mmol/L Normal [facility] Comment on above: Performed By: #### M ERICK Faith, PHOS #### [facility] [address] [address] [address] David Magana AST [Catalytic activity/Vol] 9 U/L Critically low 15-37 [facility] Comment on above: Performed By: #### M ERICK Faith, PHOS #### [facility] [address] [place] [address] Dr. David Magana Bilirubin [Mass/Vol] 0.5 mg/dL Normal 0.2-1.0 [facility] Comment on above: Performed By: #### ERICK Jacques, PHOS #### [facility] [address] [place] [address] Dr. David Magana Calcium [Mass/Vol] 8.3 mg/dL Critically low 8.5-10.1 [facility] Comment on above: Performed By: #### ERICK Jacques, PHOS #### [facility] [address] [place] [address] Dr. David Magana Chloride [Moles/Vol] 105 mmol/L Normal 98-107 [facility] Comment on above: Performed By: #### M ERICK Faith, PHOS #### [facility] [address] [place] [address] Dr. David Magana CO2 [Moles/Vol] 24.2 mmol/L Normal 21.0-32.0 [facility] Comment on above: Performed By: #### M ERICK Faith, PHOS #### [facility] [address] [place] [address] Dr. David Magana Creatinine [Mass/Vol] 1.28 mg/dL Normal 0.70-1.30 [facility] Comment on above: Performed By: #### ERICK Jacques, PHOS #### [facility] [address] [address] [address] David Magana EGFR-AF ICELANDIC >60 Normal >=60 [facility] Comment on above: Performed By: #### M ERICK Faith, PHOS #### [facility] [address] [address] [address] David Magana EGFR-NON AF ICELANDIC 54 mL/min/1.73m2 Critically low >=60 [facility] Comment on above: Performed By: #### ERICK Jacques, PHOS #### [facility] [address] [place] [address] Dr. David Magana Globulin (S) [Mass/Vol] 2.9 g/dL Normal [facility] Comment on above: Performed By: #### ERICK Jacques, PHOS #### [facility] [address] [place] [address] Dr. David Magana Glucose [Mass/Vol] 205 mg/dL Critically high 74-106 [facility] Comment on above: Performed By: #### ERICK Jacques, PHOS #### [facility] [address] [address] [address] David Magana Potassium [Moles/Vol] 4.0 mmol/L Normal 3.5-5.1 [facility] Comment on above: Performed By: #### ERICK Jacques, PHOS #### [facility] [address] [address] [address] David Magana Protein [Mass/Vol] 5.5 g/dL Critically low 6.4-8.2 [facility] Comment on above: Performed By: #### ERICK Jacques, PHOS #### [facility] [address] [address] [address] David Magana Sodium [Moles/Vol] 138 mmol/L Normal 136-145 [facility] Comment on above: Performed By: #### ERICK Jacques, PHOS #### [facility] [address] [address] [address] David Magana Urea nitrogen [Mass/Vol] 36.0 mg/dL Critically high 7.0-18.0 [facility] Comment on above: Performed By: #### M Marcell BMP, PHOS #### [facility] [address] [place] [address] Dr. David Magana Urea nitrogen/Creatinine [Mass ratio] 28.1 mg/mg Normal [facility] Comment on above: Performed By: #### M Marcell BMP, PHOS #### [facility] [address] [place] [address] Dr. David Magana BNPon 07-21-2022 Natriuretic peptide B (Bld) [Mass/Vol] 3485.0 pg/mL Critically high <=1,800.0 [facility] Comment on above: Result Comment: repe ated Performed By: #### A 1C #### [facility] [address] [place] [address] Dr. David Magana CBC AUTO DIFFon 07-21-2022 BASO # 0.0 103/ul Normal 0.0-0.1 [facility] Comment on above: Performed By: #### C BC #### [facility] [address] [place] [address] Dr. David Magana Basophils/100 WBC (Bld) 0.3 % Normal 0.2-2.0 [facility] Comment on above: Performed By: #### C BC #### [facility] [address] [place] [address] Dr. David Magana EO # 0.2 103/ul Normal 0.0-0.7 [facility] Comment on above: Performed By: #### C BC #### [facility] [address] [place] [address] Dr. David Magana Eosinophils/100 WBC (Bld) 1.9 % Normal 0.9-7.0 [facility] Comment on above: Performed By: #### C BC #### [facility] [address] [place] [address] Dr. David Magana Erythrocyte distribution width (RBC) [Ratio] 13.4 % Normal 11.0-15.0 [facility] Comment on above: Performed By: #### C BC #### [facility] [address] [place] [address] Dr. David Magana Hematocrit (Bld) [Volume fraction] 42.5 % Normal 42.0-54.0 [facility] Comment on above: Performed By: #### C BC #### [facility] [address] [place] [address] Dr. David Magana Hemoglobin (Bld) [Mass/Vol] 14.2 g/dL Normal 14.0-18.0 [facility] Comment on above: Performed By: #### C BC #### [facility] [address] [place] [address] Dr. David Magana IG # 0.22 10e3/ul Critically high 0.00-0.03 [facility] Comment on above: Performed By: #### C BC #### [facility] [address] [place] [address] Dr. David Magana IG % 2.1 % Critically high 0.0-0.5 [facility] Comment on above: Performed By: #### C BC #### [facility] [address] [place] [address] Dr. David Magana LYMPH # 0.8 103/ul Critically low 1.2-3.8 [facility] Comment on above: Performed By: #### C BC #### [facility] [address] [place] [address] Dr. David Magana Lymphocytes/100 WBC (Bld) 7.7 % Critically low 20.5-60.0 [facility] Comment on above: Performed By: #### C BC #### [facility] [address] [place] [address] Dr. David Magana MANUAL DIFF REQ NO Normal [facility] Comment on above: Performed By: #### C BC #### [facility] [address] [place] [address] Dr. David Magana MCH (RBC) [Entitic mass] 33.0 pg Normal 25.9-34.0 [facility] Comment on above: Performed By: #### C BC #### [facility] [address] [place] [address] Dr. David Magana MCHC (RBC) [Mass/Vol] 33.4 g/dL Normal 29.9-35.2 [facility] Comment on above: Performed By: #### C BC #### [facility] [address] [place] [address] Dr. David Magana MCV (RBC) [Entitic vol] 98.8 fL Critically high 80.0-94.0 [facility] Comment on above: Performed By: #### C BC #### [facility] [address] [address] [address] David Magana MONO # 1.0 103/ul Critically high 0.3-0.8 [facility] Comment on above: Performed By: #### C BC #### [facility] [address] [place] [address] Dr. David Magana Monocytes/100 WBC (Bld) 9.7 % Normal 1.7-12.0 [facility] Comment on above: Performed By: #### C BC #### [facility] [address] [place] [address] Dr. David Magana NEUT # 8.1 103/ul Critically high 1.4-6.5 [facility] Comment on above: Performed By: #### C BC #### [facility] [address] [place] [address] Dr. David Magana Neutrophils/100 WBC (Bld) 78.3 % Critically high 43.0-75.0 [facility] Comment on above: Performed By: #### C BC #### [facility] [address] [place] [address] Dr. David Magana Platelet mean volume (Bld) [Entitic vol] 10.7 fL Normal 9.5-13.5 [facility] Comment on above: Performed By: #### C BC #### [facility] [address] [place] [address] Dr. David Magana PLT 177 103/ul Normal 150-450 [facility] Comment on above: Performed By: #### C BC #### [facility] [address] [place] [address] Dr. David Magana RBC 4.30 106/ul Critically low 4.70-6.10 [facility] Comment on above: Performed By: #### C BC #### [facility] [address] [place] [address] Dr. David Magana WBC 10.4 103/ul Normal 4.0-11.0 [facility] Comment on above: Performed By: #### C BC #### [facility] [address] [place] [address] Dr. David Magana PROF 14(COMP METB)on 022 Albumin [Mass/Vol] 2.6 g/dL Critically low 3.4-5.0 [facility] Comment on above: Performed By: #### A 1C #### [facility] [address] [place] [address] Dr. David Magana Albumin/Globulin [Mass ratio] 1.0 {ratio} Normal [facility] Comment on above: Performed By: #### A 1C #### [facility] [address] [place] [address] Dr. David Magana ALP [Catalytic activity/Vol] 50 U/L Normal 46-116 [facility] Comment on above: Performed By: #### A 1C #### [facility] [address] [place] [address] Dr. David Magana ALT [Catalytic activity/Vol] 28 U/L Normal 16-63 [facility] Comment on above: Performed By: #### A 1C #### [facility] [address] [place] [address] Dr. David Magana Anion gap [Moles/Vol] 11.4 mmol/L Normal [facility] Comment on above: Performed By: #### A 1C #### [facility] [address] [place] [address] Dr. David Magana AST [Catalytic activity/Vol] 13 U/L Critically low 15-37 [facility] Comment on above: Performed By: #### A 1C #### [facility] [address] [place] [address] Dr. David Magana Bilirubin [Mass/Vol] 0.4 mg/dL Normal 0.2-1.0 [facility] Comment on above: Performed By: #### A 1C #### [facility] [address] [place] [address] Dr. David Magana Calcium [Mass/Vol] 8.4 mg/dL Critically low 8.5-10.1 [facility] Comment on above: Performed By: #### A 1C #### [facility] [address] [address] [address] David Magana Chloride [Moles/Vol] 107 mmol/L Normal 98-107 [facility] Comment on above: Performed By: #### A 1C #### [facility] [address] [place] [address] Dr. David Magana CO2 [Moles/Vol] 24.6 mmol/L Normal 21.0-32.0 [facility] Comment on above: Performed By: #### A 1C #### [facility] [address] [place] [address] Dr. David Magana Creatinine [Mass/Vol] 1.26 mg/dL Normal 0.70-1.30 [facility] Comment on above: Performed By: #### A 1C #### [facility] [address] [place] [address] Dr. David Magana EGFR-AF ICELANDIC >60 Normal >=60 [facility] Comment on above: Performed By: #### A 1C #### [facility] [address] [place] [address] Dr. David Magana EGFR-NON AF ICELANDIC 55 mL/min/1.73m2 Critically low >=60 [facility] Comment on above: Performed By: #### A 1C #### [facility] [address] [place] [address] Dr. David Magana Globulin (S) [Mass/Vol] 2.7 g/dL Normal [facility] Comment on above: Performed By: #### A 1C #### [facility] [address] [place] [address] Dr. David Magana Glucose [Mass/Vol] 203 mg/dL Critically high 74-[address] [facility] Comment on above: Performed By: #### A 1C #### [facility] [address] [address] [address] David Magana Potassium [Moles/Vol] 4.0 mmol/L Normal 3.5-5.1 [facility] Comment on above: Performed By: #### A 1C #### [facility] [address] [place] [address] Dr. David Magana Protein [Mass/Vol] 5.3 g/dL Critically low 6.4-8.2 [facility] Comment on above: Performed By: #### A 1C #### [facility] [address] [place] [address] Dr. David Magana Sodium [Moles/Vol] 139 mmol/L Normal 136-145 [facility] Comment on above: Performed By: #### A 1C #### [facility] [address] [place] [address] Dr. David Magana Urea nitrogen [Mass/Vol] 33.0 mg/dL Critically high 7.0-18.0 [facility] Comment on above: Performed By: #### A 1C #### [facility] [address] [place] [address] Dr. David Magana Urea nitrogen/Creatinine [Mass ratio] 26.2 mg/mg Normal [facility] Comment on above: Performed By: #### A 1C #### [facility] [address] [place] [address] Dr. David Magana BNPon 07-20-2022 Natriuretic peptide B (Bld) [Mass/Vol] 7478.0 pg/mL Critically high <=1,800.0 [facility] Comment on above: Performed By: #### A 1C #### [facility] [address] [place] [address] Dr. David Magana CBC AUTO DIFFon 07-20-2022 BASO # 0.1 103/ul Normal 0.0-0.1 [facility] Comment on above: Performed By: #### M G, BMP, PHOS #### [facility] [address] [place] [address] Dr. David Magana Basophils/100 WBC (Bld) 0.8 % Normal 0.2-2.0 [facility] Comment on above: Performed By: #### M ERICK Faith, PHOS #### [facility] [address] [place] [address] Dr. David Magana EO # 0.1 103/ul Normal 0.0-0.7 [facility] Comment on above: Performed By: #### ERICK Jacques, PHOS #### [facility] [address] [place] [address] Dr. David Magana Eosinophils/100 WBC (Bld) 0.6 % Critically low 0.9-7.0 [facility] Comment on above: Performed By: #### ERICK Jacques, PHOS #### [facility] [address] [place] [address] Dr. David Magana Erythrocyte distribution width (RBC) [Ratio] 13.4 % Normal 11.0-15.0 [facility] Comment on above: Performed By: #### ERICK Jacques, PHOS #### [facility] [address] [place] [address] Dr. David Magana Hematocrit (Bld) [Volume fraction] 43.2 % Normal 42.0-54.0 [facility] Comment on above: Performed By: #### ERICK Jacques, PHOS #### [facility] [address] [place] [address] Dr. David Magana Hemoglobin (Bld) [Mass/Vol] 14.2 g/dL Normal 14.0-18.0 [facility] Comment on above: Performed By: #### ERICK Jacques, PHOS #### [facility] [address] [place] [address] Dr. David Magana IG # 0.21 10e3/ul Critically high 0.00-0.03 [facility] Comment on above: Performed By: #### ERICK Jacques, PHOS #### [facility] [address] [place] [address] Dr. David Mgaana IG % 2.0 % Critically high 0.0-0.5 [facility] Comment on above: Performed By: #### M G, BMP, PHOS #### [facility] [address] [place] [address] Dr. David Magana LYMPH # 0.8 103/ul Critically low 1.2-3.8 [facility] Comment on above: Performed By: #### M G, BMP, PHOS #### [facility] [address] [place] [address] Dr. David Magana Lymphocytes/100 WBC (Bld) 7.7 % Critically low 20.5-60.0 [facility] Comment on above: Performed By: #### M G, BMP, PHOS #### [facility] [address] [place] [address] Dr. David Magana MANUAL DIFF REQ NO Normal [facility] Comment on above: Performed By: #### M G, BMP, PHOS #### [facility] [address] [place] [address] Dr. David Magana MCH (RBC) [Entitic mass] 33.2 pg Normal 25.9-34.0 [facility] Comment on above: Performed By: #### M G, BMP, PHOS #### [facility] [address] [place] [address] Dr. David Magana MCHC (RBC) [Mass/Vol] 32.9 g/dL Normal 29.9-35.2 [facility] Comment on above: Performed By: #### M G, BMP, PHOS #### [facility] [address] [place] [address] Dr. David Magana MCV (RBC) [Entitic vol] 100.9 fL Critically high 80.0-94.0 [facility] Comment on above: Performed By: #### M G, BMP, PHOS #### [facility] [address] [place] [address] Dr. David Magana MONO # 1.0 103/ul Critically high 0.3-0.8 [facility] Comment on above: Performed By: #### M G, BMP, PHOS #### [facility] [address] [place] [address] Dr. David Magana Monocytes/100 WBC (Bld) 10.0 % Normal 1.7-12.0 [facility] Comment on above: Performed By: #### ERICK Jacques, PHOS #### [facility] [address] [place] [address] Dr. David Magana NEUT # 8.1 103/ul Critically high 1.4-6.5 [facility] Comment on above: Performed By: #### ERICK Jacques, PHOS #### [facility] [address] [place] [address] Dr. David Magana Neutrophils/100 WBC (Bld) 78.9 % Critically high 43.0-75.0 [facility] Comment on above: Performed By: #### ERICK Jacques, PHOS #### [facility] [address] [place] [address] Dr. David Magana Platelet mean volume (Bld) [Entitic vol] 10.8 fL Normal 9.5-13.5 [facility] Comment on above: Performed By: #### ERICK Jacques, PHOS #### [facility] [address] [place] [address] Dr. David Magana PLT 172 103/ul Normal 150-450 [facility] Comment on above: Performed By: #### ERICK Jacques, PHOS #### [facility] [address] [place] [address] Dr. David Magana RBC 4.28 106/ul Critically low 4.70-6.10 [facility] Comment on above: Performed By: #### ERICK Jacques, PHOS #### [facility] [address] [place] [address] Dr. David Magana WBC 10.3 103/ul Normal 4.0-11.0 [facility] Comment on above: Performed By: #### ERICK Jacques, PHOS #### [facility] [address] [place] [address] Dr. David Magana CULTURE URINEon 07-20-2022 CULTURE [...] F Trimethoprim/Sulfameth oxazole >=320 R F Normal [facility] Comment on above: Performed By: #### M G, BMP, PHOS #### [facility] [address] [place] [address] Dr. David Magana PROF 14(COMP METB)on 022 Albumin [Mass/Vol] 2.6 g/dL Critically low 3.4-5.0 [facility] Comment on above: Performed By: #### A 1C #### [facility] [address] [place] [address] Dr. David Magana Albumin/Globulin [Mass ratio] 0.9 {ratio} Normal [facility] Comment on above: Performed By: #### A 1C #### [facility] [address] [place] [address] Dr. David Magana ALP [Catalytic activity/Vol] 48 U/L Normal 46-116 [facility] Comment on above: Performed By: #### A 1C #### [facility] [address] [place] [address] Dr. David Magana ALT [Catalytic activity/Vol] 27 U/L Normal 16-63 [facility] Comment on above: Performed By: #### A 1C #### [facility] [address] [place] [address] Dr. David Magana Anion gap [Moles/Vol] 13.4 mmol/L Normal [facility] Comment on above: Performed By: #### A 1C #### [facility] [address] [place] [address] Dr. David Magana AST [Catalytic activity/Vol] 22 U/L Normal 15-37 [facility] Comment on above: Performed By: #### A 1C #### [facility] [address] [address] [address] David Magana Bilirubin [Mass/Vol] 0.5 mg/dL Normal 0.2-1.0 [facility] Comment on above: Performed By: #### A 1C #### [facility] [address] [address] [address] David Magana Calcium [Mass/Vol] 8.3 mg/dL Critically low 8.5-10.1 [facility] Comment on above: Performed By: #### A 1C #### [facility] [address] [address] [address] David Magana Chloride [Moles/Vol] 105 mmol/L Normal 98-107 [facility] Comment on above: Performed By: #### A 1C #### [facility] [address] [address] [address] David Magana CO2 [Moles/Vol] 21.0 mmol/L Normal 21.0-32.0 [facility] Comment on above: Performed By: #### A 1C #### [facility] [address] [address] [address] David Magana Creatinine [Mass/Vol] 1.38 mg/dL Critically high 0.70-1.30 [facility] Comment on above: Performed By: #### A 1C #### [facility] [address] [address] [address] David Magana EGFR-AF ICELANDIC 60 mL/min/1.73m2 Normal >=60 [facility] Comment on above: Performed By: #### A 1C #### [facility] [address] [address] [address] David Magana EGFR-NON AF ICELANDIC 49 mL/min/1.73m2 Critically low >=60 [facility] Comment on above: Performed By: #### A 1C #### [facility] [address] [address] [address] David Magana Globulin (S) [Mass/Vol] 2.8 g/dL Normal [facility] Comment on above: Performed By: #### A 1C #### [facility] [address] [address] [address] David Magana Glucose [Mass/Vol] 156 mg/dL Critically high 74-[address] [facility] Comment on above: Performed By: #### A 1C #### [facility] [address] [place] [address] Dr. David Magana Potassium [Moles/Vol] 4.4 mmol/L Normal 3.5-5.1 [facility] Comment on above: Performed By: #### A 1C #### [facility] [address] [place] [address] Dr. David Magana Protein [Mass/Vol] 5.4 g/dL Critically low 6.4-8.2 [facility] Comment on above: Performed By: #### A 1C #### [facility] [address] [place] [address] Dr. David Magana Sodium [Moles/Vol] 135 mmol/L Critically low 136-145 [facility] Comment on above: Performed By: #### A 1C #### [facility] [address] [place] [address] Dr. David Magana Urea nitrogen [Mass/Vol] 40.0 mg/dL Critically high 7.0-18.0 [facility] Comment on above: Performed By: #### A 1C #### [facility] [address] [place] [address] Dr. David Magana Urea nitrogen/Creatinine [Mass ratio] 29.0 mg/mg Normal [facility] Comment on above: Performed By: #### A 1C #### [facility] [address] [place] [address] Dr. David Magana BNPon 07-19-2022 Natriuretic peptide B (Bld) [Mass/Vol] 72405.0 pg/mL Critically high <=1,800.0 [facility] Comment on above: Performed By: #### C VDTB #### [facility] [address] [place] [address] Dr. David Magana CBC AUTO DIFFon 07-19-2022 BASO # 0.0 103/ul Normal 0.0-0.1 [facility] Comment on above: Performed By: #### C BC #### [facility] [address] [place] [address] Dr. David Magana Basophils/100 WBC (Bld) 0.3 % Normal 0.2-2.0 [facility] Comment on above: Performed By: #### C BC #### [facility] [address] [place] [address] Dr. David Magana EO # 0.0 103/ul Normal 0.0-0.7 [facility] Comment on above: Performed By: #### C BC #### [facility] [address] [place] [address] Dr. David Magana Eosinophils/100 WBC (Bld) 0.2 % Critically low 0.9-7.0 [facility] Comment on above: Performed By: #### C BC #### [facility] [address] [place] [address] Dr. David Magana Erythrocyte distribution width (RBC) [Ratio] 13.4 % Normal 11.0-15.0 [facility] Comment on above: Performed By: #### C BC #### [facility] [address] [place] [address] Dr. David Magana Hematocrit (Bld) [Volume fraction] 43.4 % Normal 42.0-54.0 [facility] Comment on above: Performed By: #### C BC #### [facility] [address] [place] [address] Dr. David Magana Hemoglobin (Bld) [Mass/Vol] 14.6 g/dL Normal 14.0-18.0 [facility] Comment on above: Performed By: #### C BC #### [facility] [address] [place] [address] Dr. David Magana IG # 0.18 10e3/ul Critically high 0.00-0.03 [facility] Comment on above: Performed By: #### C BC #### [facility] [address] [place] [address] Dr. David Magana IG % 1.5 % Critically high 0.0-0.5 [facility] Comment on above: Performed By: #### C BC #### [facility] [address] [place] [address] Dr. David Magana LYMPH # 0.8 103/ul Critically low 1.2-3.8 [facility] Comment on above: Performed By: #### C BC #### [facility] [address] [place] [address] Dr. David Magana Lymphocytes/100 WBC (Bld) 6.6 % Critically low 20.5-60.0 [facility] Comment on above: Performed By: #### C BC #### [facility] [address] [place] [address] Dr. David Magana MANUAL DIFF REQ NO Normal [facility] Comment on above: Performed By: #### C BC #### [facility] [address] [place] [address] Dr. David Magana MCH (RBC) [Entitic mass] 33.7 pg Normal 25.9-34.0 [facility] Comment on above: Performed By: #### C BC #### [facility] [address] [place] [address] Dr. David Magana MCHC (RBC) [Mass/Vol] 33.6 g/dL Normal 29.9-35.2 [facility] Comment on above: Performed By: #### C BC #### [facility] [address] [place] [address] Dr. David Magana MCV (RBC) [Entitic vol] 100.2 fL Critically high 80.0-94.0 [facility] Comment on above: Performed By: #### C BC #### [facility] [address] [place] [address] Dr. David Magana MONO # 1.1 103/ul Critically high 0.3-0.8 [facility] Comment on above: Performed By: #### C BC #### [facility] [address] [place] [address] Dr. David Magana Monocytes/100 WBC (Bld) 9.3 % Normal 1.7-12.0 [facility] Comment on above: Performed By: #### C BC #### [facility] [address] [place] [address] Dr. David Magana NEUT # 9.6 103/ul Critically high 1.4-6.5 [facility] Comment on above: Performed By: #### C BC #### [facility] [address] [place] [address] Dr. David Magana Neutrophils/100 WBC (Bld) 82.1 % Critically high 43.0-75.0 [facility] Comment on above: Performed By: #### C BC #### [facility] [address] [place] [address] Dr. David Magana Platelet mean volume (Bld) [Entitic vol] 10.8 fL Normal 9.5-13.5 [facility] Comment on above: Performed By: #### C BC #### [facility] [address] [place] [address] Dr. David Magana PLT 202 103/ul Normal 150-450 [facility] Comment on above: Performed By: #### C BC #### [facility] [address] [place] [address] Dr. David Magana RBC 4.33 106/ul Critically low 4.70-6.10 [facility] Comment on above: Performed By: #### C BC #### [facility] [address] [place] [address] Dr. David Magana WBC 11.7 103/ul Critically high 4.0-11.0 [facility] Comment on above: Performed By: #### C BC #### [facility] [address] [place] [address] Dr. David Magana PROF 14(COMP METB)on 022 Albumin [Mass/Vol] 3.4 g/dL Normal 3.4-5.0 [facility] Comment on above: Performed By: #### A 1C #### [facility] [address] [place] [address] Dr. David Magana Albumin/Globulin [Mass ratio] 1.1 {ratio} Normal [facility] Comment on above: Performed By: #### A 1C #### [facility] [address] [place] [address] Dr. David Magana ALP [Catalytic activity/Vol] 63 U/L Normal 46-116 [facility] Comment on above: Performed By: #### A 1C #### [facility] [address] [address] [address] David Magana ALT [Catalytic activity/Vol] 34 U/L Normal 16-63 [facility] Comment on above: Performed By: #### A 1C #### [facility] [address] [address] [address] David Magana Anion gap [Moles/Vol] 20.9 mmol/L Normal [facility] Comment on above: Performed By: #### A 1C #### [facility] [address] [place] [address] Dr. David Magana AST [Catalytic activity/Vol] 18 U/L Normal 15-37 [facility] Comment on above: Performed By: #### A 1C #### [facility] [address] [address] [address] David Magana Bilirubin [Mass/Vol] 0.5 mg/dL Normal 0.2-1.0 [facility] Comment on above: Performed By: #### A 1C #### [facility] [address] [place] [address] Dr. David Magana Calcium [Mass/Vol] 8.5 mg/dL Normal 8.5-10.1 [facility] Comment on above: Performed By: #### A 1C #### [facility] [address] [address] [address] David Magana Chloride [Moles/Vol] 99 mmol/L Normal 98-107 [facility] Comment on above: Performed By: #### A 1C #### [facility] [address] [address] [address] David Magana CO2 [Moles/Vol] 19.1 mmol/L Critically low 21.0-32.0 [facility] Comment on above: Performed By: #### A 1C #### [facility] [address] [address] [address] David Magana Creatinine [Mass/Vol] 1.80 mg/dL Critically high 0.70-1.30 [facility] Comment on above: Performed By: #### A 1C #### [facility] [address] [address] [address] David Magana EGFR-AF ICELANDIC 44 mL/min/1.73m2 Critically low >=60 [facility] Comment on above: Performed By: #### A 1C #### [facility] [address] [address] [address] David Magana EGFR-NON AF ICELANDIC 36 mL/min/1.73m2 Critically low >=60 [facility] Comment on above: Performed By: #### A 1C #### [facility] [address] [address] [address] David Magana Globulin (S) [Mass/Vol] 3.2 g/dL Normal [facility] Comment on above: Performed By: #### A 1C #### [facility] [address] [address] [address] David Magana Glucose [Mass/Vol] 287 mg/dL Critically high 74-[address] [facility] Comment on above: Performed By: #### A 1C #### [facility] [address] [address] [address] David Magana Potassium [Moles/Vol] 5.0 mmol/L Normal 3.5-5.1 [facility] Comment on above: Performed By: #### A 1C #### [facility] [address] [address] [address] David Magana Protein [Mass/Vol] 6.6 g/dL Normal 6.4-8.2 [facility] Comment on above: Performed By: #### A 1C #### [facility] [address] [address] [address] David Magana Sodium [Moles/Vol] 134 mmol/L Critically low 136-145 [facility] Comment on above: Performed By: #### A 1C #### [facility] [address] [address] [address] David Magana Urea nitrogen [Mass/Vol] 51.0 mg/dL Critically high 7.0-18.0 [facility] Comment on above: Performed By: #### A 1C #### [facility] [address] [address] [address] David Magana Urea nitrogen/Creatinine [Mass ratio] 28.3 mg/mg Normal [facility] Comment on above: Performed By: #### A 1C #### [facility] [address] [address] [address] David Magana BLOOD GASES BTYon 07-18-2022 02 MODE NASAL CANNULA Normal [facility] Comment on above: Performed By: #### A 1C #### [facility] [address] [place] [address] Dr. David Magana ALLENS TEST Positive Normal [facility] Comment on above: Performed By: #### A 1C #### [facility] [address] [address] [address] David Magana Base excess Calc (Bld) [Moles/Vol] -9.0000 mmol/L Critically low -2.0-2.0 [facility] Comment on above: Performed By: #### A 1C #### [facility] [address] [place] [address] Dr. David Magana BIPAP PRESSURE Normal [facility] Comment on above: Performed By: #### A 1C #### [facility] [address] [address] [address] David Magana CPAP Normal [facility] Comment on above: Performed By: #### A 1C #### [facility] [address] [address] [address] David Magana FIO2 Normal [facility] Comment on above: Performed By: #### A 1C #### [facility] [address] [place] [address] Dr. David Magana HCO3 (Bld) [Moles/Vol] 18.4 mmol/L Critically low 22.0-26.0 [facility] Comment on above: Performed By: #### A 1C #### [facility] [address] [address] [address] David Magana LPM 1.5 Normal [facility] Comment on above: Performed By: #### A 1C #### [facility] [address] [place] [address] Dr. David Magana MINUTE VOLUME Normal [facility] Comment on above: Performed By: #### A 1C #### [facility] [address] [place] [address] Dr. David Magana Oxygen (Bld) [Partial pressure] 69.5 mm[Hg] Critically low 80.0-100.0 [facility] Comment on above: Performed By: #### A 1C #### [facility] [address] [place] [address] Dr. David Magana Oxygen saturation in Blood 94.2 % Critically low 95.0-100.0 [facility] Comment on above: Performed By: #### A 1C #### [facility] [address] [place] [address] Dr. David Magana PCO2 29.6 mmHg Critically low 35.0-45.0 [facility] Comment on above: Performed By: #### A 1C #### [facility] [address] [place] [address] Dr. David Magana PEEP Normal [facility] Comment on above: Performed By: #### A 1C #### [facility] [address] [place] [address] Dr. David Magana pH (Bld) 7.355 [pH] Normal 7.350-7.450 [facility] Comment on above: Performed By: #### A 1C #### [facility] [address] [place] [address] Dr. David Magana PIP [facility] Comment on above: Performed By: #### A 1C #### [facility] [address] [place] [address] Dr. David Magana PS Normal [facility] Comment on above: Performed By: #### A 1C #### [facility] [address] [address] [address] David Magana PUNCTURE SITE LR [facility] Comment on above: Performed By: #### A 1C #### [facility] [address] [place] [address] Dr. David Magana [facility] Comment on above: Performed By: #### A 1C #### [facility] [address] [place] [address] Dr. David Magana VENT MODE [facility] Comment on above: Performed By: #### A 1C #### [facility] [address] [place] [address] Dr. David Magana [facility] Comment on above: Performed By: #### A 1C #### [facility] [address] [place] [address] Dr. David Magana BNPon 07-18-2022 Natriuretic peptide B (Bld) [Mass/Vol] 7047.0 pg/mL Critically high <=1,800.0 [facility] Comment on above: Performed By: #### C VDTBH #### [facility] [address] [place] [address] Dr. David Magana CARDIAC BARRIE 3-6on 2 CK [Catalytic activity/Vol] 396 U/L Critically high 39-308 [facility] Comment on above: Performed By: #### M G, BMP, PHOS #### [facility] [address] [place] [address] Dr. David Magana CK.MB [Mass/Vol] 2.94 ng/mL Normal <=3.60 [facility] Comment on above: Performed By: #### M G, BMP, PHOS #### [facility] [address] [place] [address] Dr. David Magana HSTROP 11.1 pg/mL Normal 4.0-76.1 [facility] Comment on above: Result Comment: CUT- OFF POINTS HAVE BEEN ESTABLISHED BASED ON THE FOURTH UNIVERSAL DEFINITIONS OF MYOCARDIAL INFARCTION. THE UPPER REFERENCE LIMIT (URL) OF TROPONIN, DEFINED THE 99TH PERCENTILE OF cTnI DISTRIBUTION IN A REFERENCE POPULATION, HAS BEEN CONFIRMED THE DECISION THRESHOLD FOR MO DIAGNOSIS. Performed By: #### M G, BMP, PHOS #### [facility] [address] [place] [address] Dr. David Magana CK [Catalytic activity/Vol] 58 U/L Normal 39-308 [facility] Comment on above: Performed By: #### M G, BMP, PHOS #### [facility] [address] [place] [address] Dr. David Magana CK.MB [Mass/Vol] 1.71 ng/mL Normal <=3.60 [facility] Comment on above: Performed By: #### M G, BMP, PHOS #### [facility] [address] [place] [address] Dr. David Magana HSTROP 10.6 pg/mL Normal 4.0-76.1 [facility] Comment on above: Result Comment: CUT- OFF POINTS HAVE BEEN ESTABLISHED BASED ON THE FOURTH UNIVERSAL DEFINITIONS OF MYOCARDIAL INFARCTION. THE UPPER REFERENCE LIMIT (URL) OF TROPONIN, DEFINED THE 99TH PERCENTILE OF cTnI DISTRIBUTION IN A REFERENCE POPULATION, HAS BEEN CONFIRMED THE DECISION THRESHOLD FOR MO DIAGNOSIS. Performed By: #### M Marcell BMP, PHOS #### [facility] [address] [place] [address] Dr. David Magana CBC AUTO DIFFon 07-18-2022 BASO # 0.0 103/ul Normal 0.0-0.1 [facility] Comment on above: Performed By: #### M Marcell BMP, PHOS #### [facility] [address] [place] [address] Dr. David Magana Basophils/100 WBC (Bld) 0.2 % Normal 0.2-2.0 [facility] Comment on above: Performed By: #### M Marcell BMP, PHOS #### [facility] [address] [place] [address] Dr. David Magana EO # 0.0 103/ul Normal 0.0-0.7 [facility] Comment on above: Performed By: #### M Marcell, BMP, PHOS #### [facility] [address] [place] [address] Dr. David Magana Eosinophils/100 WBC (Bld) 0.2 % Critically low 0.9-7.0 [facility] Comment on above: Performed By: #### ERICK Jacques, PHOS #### [facility] [address] [place] [address] Dr. David Magana Erythrocyte distribution width (RBC) [Ratio] 13.2 % Normal 11.0-15.0 [facility] Comment on above: Performed By: #### ERICK Jacques, PHOS #### [facility] [address] [place] [address] Dr. David Magana Hematocrit (Bld) [Volume fraction] 43.8 % Normal 42.0-54.0 [facility] Comment on above: Performed By: #### ERICK Jacques, PHOS #### [facility] [address] [place] [address] Dr. David Magana Hemoglobin (Bld) [Mass/Vol] 14.5 g/dL Normal 14.0-18.0 [facility] Comment on above: Performed By: #### ERICK Jacques, PHOS #### [facility] [address] [address] [address] David Magana IG # 0.15 10e3/ul Critically high 0.00-0.03 [facility] Comment on above: Performed By: #### ERICK Jacques, PHOS #### [facility] [address] [address] [address] David Magana IG % 1.3 % Critically high 0.0-0.5 [facility] Comment on above: Performed By: #### ERICK Jacques, PHOS #### [facility] [address] [place] [address] Dr. David Magana LYMPH # 0.5 103/ul Critically low 1.2-3.8 [facility] Comment on above: Performed By: #### ERICK Jacques, PHOS #### [facility] [address] [place] [address] Dr. David Magana Lymphocytes/100 WBC (Bld) 3.8 % Critically low 20.5-60.0 [facility] Comment on above: Performed By: #### M Marcell BMP, PHOS #### [facility] [address] [place] [address] Dr. David Magana MANUAL DIFF REQ NO Normal [facility] Comment on above: Performed By: #### M Marcell, BMP, PHOS #### [facility] [address] [place] [address] Dr. David Magana MCH (RBC) [Entitic mass] 32.7 pg Normal 25.9-34.0 [facility] Comment on above: Performed By: #### M ERICK Faith, PHOS #### [facility] [address] [place] [address] Dr. David Magana MCHC (RBC) [Mass/Vol] 33.1 g/dL Normal 29.9-35.2 [facility] Comment on above: Performed By: #### ERICK Jacques, PHOS #### [facility] [address] [place] [address] Dr. David Magana MCV (RBC) [Entitic vol] 98.9 fL Critically high 80.0-94.0 [facility] Comment on above: Performed By: #### ERICK Jacques, PHOS #### [facility] [address] [place] [address] Dr. David Magana MONO # 0.7 103/ul Normal 0.3-0.8 [facility] Comment on above: Performed By: #### ERICK Jacques, PHOS #### [facility] [address] [place] [address] Dr. David Magana Monocytes/100 WBC (Bld) 5.7 % Normal 1.7-12.0 [facility] Comment on above: Performed By: #### M ERICK Faith, PHOS #### [facility] [address] [place] [address] Dr. David Magana NEUT # 10.4 103/ul Critically high 1.4-6.5 [facility] Comment on above: Performed By: #### M ERICK Faith, PHOS #### [facility] [address] [address] [address] David Magana Neutrophils/100 WBC (Bld) 88.8 % Critically high 43.0-75.0 [facility] Comment on above: Performed By: #### M ERICK Faith, PHOS #### [facility] [address] [address] [address] David Magana Platelet mean volume (Bld) [Entitic vol] 11.0 fL Normal 9.5-13.5 [facility] Comment on above: Performed By: #### M ERICK Faith, PHOS #### [facility] [address] [address] [address] David Magana PLT 198 103/ul Normal 150-450 [facility] Comment on above: Performed By: #### M ERICK Faith, PHOS #### [facility] [address] [address] [address] David Magana RBC 4.43 106/ul Critically low 4.70-6.10 [facility] Comment on above: Performed By: #### ERICK Jacques, PHOS #### [facility] [address] [address] [address] David Magana WBC 11.8 103/ul Critically high 4.0-11.0 [facility] Comment on above: Performed By: #### ERICK Jacques, PHOS #### [facility] [address] [place] [address] HEAD WO CONon 07-18-2022 CT [...] FRANCISCO GARCIA Date: 2022-07-18 05:12 Normal [facility] Covid-19 PCR (CVDTBH)on SARS-CoV-2 (COVID-19) RNA SULTANA+probe Ql (Unsp spec) Detected Critically abnormal NOT DETECTED [facility] Comment on above: Result Comment: This test is not yet approved or cleared by the [place] FDA. When there are no FDA-approved or cleared tests available, and other criteria are met, FDA can make tests available under an emergency access mechanism called an Emergency Use Authorization (EUA). The EUA for this test is supported by the English Language [employer]ner [employer] of Health and Human Service's declaration that [...] used). Performed By: #### C VDTBH #### [facility] [address] [place] [address] Dr. David Magana D-DIMERon 07-18-2022 D-DIMER 1.69 mg/L FEU Critically high <=0.59 [facility] Comment on above: Performed By: #### C BC #### [facility] [address] [address] [address] David Magana D-DIMER COMMENTS SEE BELOW Normal [facility] Comment on above: Result Comment: [...] hospitalization. Performed By: #### C BC #### [facility] [address] [address] [address] David Magana POINT OF CARE GLUCOSEon Glucose [Mass/Vol] 329 mg/dL Critically high 74-106 [facility] Comment on above: Performed By: #### P OCGLUC #### [facility] [address] [place] [address] Dr. David Magana Glucose [Mass/Vol] 354 mg/dL Critically high 74-106 [facility] Comment on above: Performed By: #### P OCGLUC #### [facility] [address] [place] [address] Dr. David Magana PROF 14(COMP METB)on 022 Albumin [Mass/Vol] 3.6 g/dL Normal 3.4-5.0 [facility] Comment on above: Performed By: #### C VDTBH #### [facility] [address] [place] [address] Dr. David Magana Albumin/Globulin [Mass ratio] 1.1 {ratio} Normal [facility] Comment on above: Performed By: #### C VDTBH #### [facility] [address] [place] [address] Dr. David Magana ALP [Catalytic activity/Vol] 67 U/L Normal 46-116 [facility] Comment on above: Performed By: #### C VDTBH #### [facility] [address] [place] [address] Dr. David Magana ALT [Catalytic activity/Vol] 33 U/L Normal 16-63 [facility] Comment on above: Performed By: #### C VDTBH #### [facility] [address] [place] [address] Dr. David aMgana Anion gap [Moles/Vol] 23.5 mmol/L Normal [facility] Comment on above: Performed By: #### C VDTBH #### [facility] [address] [place] [address] Dr. David Magana AST [Catalytic activity/Vol] 13 U/L Critically low 15-37 [facility] Comment on above: Performed By: #### C VDTBH #### [facility] [address] [address] [address] David Magana Bilirubin [Mass/Vol] 0.6 mg/dL Normal 0.2-1.0 [facility] Comment on above: Performed By: #### C VDTBH #### [facility] [address] [place] [address] Dr. David Magana Calcium [Mass/Vol] 8.4 mg/dL Critically low 8.5-10.1 [facility] Comment on above: Performed By: #### C VDTBH #### [facility] [address] [address] [address] David Magana Chloride [Moles/Vol] 93 mmol/L Critically low 98-107 [facility] Comment on above: Performed By: #### C VDTBH #### [facility] [address] [place] [address] Dr. David Magana CO2 [Moles/Vol] 17.9 mmol/L Critically low 21.0-32.0 [facility] Comment on above: Performed By: #### C VDTBH #### [facility] [address] [place] [address] Dr. David Magana Creatinine [Mass/Vol] 2.15 mg/dL Critically high 0.70-1.30 [facility] Comment on above: Performed By: #### C VDTBH #### [facility] [address] [place] [address] Dr. David Magana EGFR-AF ICELANDIC 36 mL/min/1.73m2 Critically low >=60 [facility] Comment on above: Performed By: #### C VDTBH #### [facility] [address] [place] [address] Dr. David Mgaana EGFR-NON AF ICELANDIC 30 mL/min/1.73m2 Critically low >=60 [facility] Comment on above: Performed By: #### C VDTBH #### [facility] [address] [place] [address] Dr. David Magana Globulin (S) [Mass/Vol] 3.2 g/dL Normal [facility] Comment on above: Performed By: #### C VDTBH #### [facility] [address] [address] [address] David Magana Glucose [Mass/Vol] 345 mg/dL Critically high 74-[address] [facility] Comment on above: Performed By: #### C VDTBH #### [facility] [address] [address] [address] David Magana Potassium [Moles/Vol] 5.4 mmol/L Critically high 3.5-5.1 [facility] Comment on above: Performed By: #### C VDTBH #### [facility] [address] [address] [address] David Magana Performed By: #### K #### [facility] [address] [place] [address] Dr. David Magana Protein [Mass/Vol] 6.8 g/dL Normal 6.4-8.2 [facility] Comment on above: Performed By: #### C VDTBH #### [facility] [address] [place] [address] Dr. David Magana Sodium [Moles/Vol] 129 mmol/L Critically low 136-145 [facility] Comment on above: Performed By: #### C VDTBH #### [facility] [address] [place] [address] Dr. David Magana Urea nitrogen [Mass/Vol] 65.0 mg/dL Critically high 7.0-18.0 [facility] Comment on above: Performed By: #### C VDTBH #### [facility] [address] [place] [address] Dr. David Magana Urea nitrogen/Creatinine [Mass ratio] 30.2 mg/mg Normal [facility] Comment on above: Performed By: #### C VDTBH #### [facility] [address] [place] [address] Dr. David Magana UA RANDOM W/MICROSCOPICon BACTERIA NONE SEEN Normal NONE SEEN [facility] Comment on above: Performed By: #### M G, BMP, PHOS #### [facility] [address] [address] [address] David Magana Bilirubin Ql (U) Negative Normal NEGATIVE [facility] Comment on above: Performed By: #### M G, BMP, PHOS #### [facility] [address] [place] [address] Dr. David Magana CAST NONE SEEN Normal NONE SEEN [facility] Comment on above: Performed By: #### M G, BMP, PHOS #### [facility] [address] [address] [address] David Magana Clarity (U) CLEAR Normal CLEAR [facility] Comment on above: Performed By: #### M G, BMP, PHOS #### [facility] [address] [place] [address] Dr. David Magana Color (U) LT. YELLOW Normal YELLOW [facility] Comment on above: Performed By: #### M G, BMP, PHOS #### [facility] [address] [place] [address] Dr. David Magana Crystals LM Nom (Urine sed) NONE SEEN Normal NONE SEEN [facility] Comment on above: Performed By: #### M G, BMP, PHOS #### [facility] [address] [place] [address] Dr. David Magana Epithelial cells LM Ql (Urine sed) RARE Normal NONE SEEN /RARE [facility] Comment on above: Performed By: #### M G, BMP, PHOS #### [facility] [address] [place] [address] Dr. David Magana Glucose Ql (U) 1000 mg/dl Abnormal NEGATIVE [facility] Comment on above: Performed By: #### M G, BMP, PHOS #### [facility] [address] [place] [address] Dr. David Magana Hemoglobin Ql (U) Negative Normal NEGATIVE [facility] Comment on above: Performed By: #### M G, BMP, PHOS #### [facility] [address] [place] [address] Dr. David Magana Ketones Ql (U) 15 mg/dl Abnormal NEGATIVE [facility] Comment on above: Performed By: #### M G, BMP, PHOS #### [facility] [address] [place] [address] Dr. David Magana LEUKOCYTES Negative Normal NEGATIVE [facility] Comment on above: Performed By: #### M G, BMP, PHOS #### [facility] [address] [place] [address] Dr. David Magana MUCOUS NONE SEEN Normal NONE SEEN [facility] Comment on above: Performed By: #### M G, BMP, PHOS #### [facility] [address] [place] [address] Dr. David Magana Nitrite Ql (U) Negative Normal NEGATIVE [facility] Comment on above: Performed By: #### M Marcell, BMP, PHOS #### [facility] [address] [place] [address] Dr. David Magana pH (U) 5.5 [pH] Normal 5-9 [facility] Comment on above: Performed By: #### M Marcell, BMP, PHOS #### [facility] [address] [place] [address] Dr. David Magana RBC NONE SEEN Abnormal 0-2 [facility] Comment on above: Performed By: #### M Marcell BMP, PHOS #### [facility] [address] [place] [address] Dr. David Magana SPEC GRAVITY <=1.005 Abnormal 1.005-<=1.02 5 [facility] Comment on above: Performed By: #### M Marcell, BMP, PHOS #### [facility] [address] [place] [address] Dr. David Magana UA PROTEIN Negative Normal NEGATIVE/ TRACE [facility] Comment on above: Performed By: #### M Marcell BMP, PHOS #### [facility] [facility] [address] [place] [address] Dr. David Magana Urobilinogen Qn (U) 0.2 {Dionna'U}/dL Normal 0.2 - 1. 0 [facility] Comment on above: Performed By: #### Jim Faith, BMP, PHOS #### [facility] [address] [place] [address] Dr. David Magana WBC NONE SEEN Normal NONE SEEN [facility] Comment on above: Performed By: #### M ERICK Faith PHOS #### [facility] [address] [place] [address] Dr. David Magana XR CHEST 1 Von [...] Yefri DWYER Date: 2022-07-18 00:09 Normal [facility] CARDIAC BARRIE ADMITon 022 CK [Catalytic activity/Vol] 61 U/L Normal 39-308 [facility] Comment on above: Performed By: #### C BC #### [facility] [address] [place] [address] Dr. David Magana CK.MB [Mass/Vol] 1.84 ng/mL Normal <=3.60 [facility] Comment on above: Performed By: #### C BC #### [facility] [address] [place] [address] Dr. David Magana HSTROP 9.4 pg/mL Normal 4.0-76.1 [facility] Comment on above: Result Comment: CUT- OFF POINTS HAVE BEEN ESTABLISHED BASED ON THE FOURTH UNIVERSAL DEFINITIONS OF MYOCARDIAL INFARCTION. THE UPPER REFERENCE LIMIT (URL) OF TROPONIN, DEFINED THE 99TH PERCENTILE OF cTnI DISTRIBUTION IN A REFERENCE POPULATION, HAS BEEN CONFIRMED THE DECISION THRESHOLD FOR MO DIAGNOSIS. Performed By: #### C BC #### [facility] [address] [place] [address] Dr. David Magana DUSTIN 533 ng/mL Critically high 16-96 [facility] Comment on above: Performed By: #### C BC #### [facility] [address] [place] [address] Dr. David Magana CBC AUTO DIFFon 07-17-2022 BASO # 0.0 103/ul Normal 0.0-0.1 [facility] Comment on above: Performed By: #### M G, BMP, PHOS #### [facility] [address] [address] [address] David Magana Basophils/100 WBC (Bld) 0.2 % Normal 0.2-2.0 [facility] Comment on above: Performed By: #### M G, BMP, PHOS #### [facility] [address] [address] [address] David Magana EO # 0.0 103/ul Normal 0.0-0.7 [facility] Comment on above: Performed By: #### M G, BMP, PHOS #### [facility] [address] [place] [address] Dr. David Magana Eosinophils/100 WBC (Bld) 0.1 % Critically low 0.9-7.0 [facility] Comment on above: Performed By: #### M G, BMP, PHOS #### [facility] [address] [place] [address] Dr. David Magana Erythrocyte distribution width (RBC) [Ratio] 13.2 % Normal 11.0-15.0 [facility] Comment on above: Performed By: #### M G, BMP, PHOS #### [facility] [address] [address] [address] David Magana Hematocrit (Bld) [Volume fraction] 43.1 % Normal 42.0-54.0 [facility] Comment on above: Performed By: #### M G, BMP, PHOS #### [facility] [address] [place] [address] Dr. David Magana Hemoglobin (Bld) [Mass/Vol] 14.5 g/dL Normal 14.0-18.0 [facility] Comment on above: Performed By: #### M G, BMP, PHOS #### [facility] [address] [place] [address] Dr. David Magana IG # 0.14 10e3/ul Critically high 0.00-0.03 [facility] Comment on above: Performed By: #### M ERICK Faith, PHOS #### [facility] [address] [place] [address] Dr. David Magana IG % 1.2 % Critically high 0.0-0.5 [facility] Comment on above: Performed By: #### ERICK Jacques, PHOS #### [facility] [address] [place] [address] Dr. David Magana LYMPH # 0.4 103/ul Critically low 1.2-3.8 [facility] Comment on above: Performed By: #### ERICK Jacques, PHOS #### [facility] [address] [place] [address] Dr. David Magana Lymphocytes/100 WBC (Bld) 3.4 % Critically low 20.5-60.0 [facility] Comment on above: Performed By: #### ERICK Jacques, PHOS #### [facility] [address] [place] [address] Dr. David Magana MANUAL DIFF REQ NO Normal [facility] Comment on above: Performed By: #### ERICK Jacques, PHOS #### [facility] [address] [place] [address] Dr. David Magana MCH (RBC) [Entitic mass] 33.3 pg Normal 25.9-34.0 [facility] Comment on above: Performed By: #### ERICK Jacques, PHOS #### [facility] [address] [place] [address] Dr. David Magana MCHC (RBC) [Mass/Vol] 33.6 g/dL Normal 29.9-35.2 [facility] Comment on above: Performed By: #### ERICK Jacques, PHOS #### [facility] [address] [place] [address] Dr. David Magana MCV (RBC) [Entitic vol] 98.9 fL Critically high 80.0-94.0 [facility] Comment on above: Performed By: #### M G, BMP, PHOS #### [facility] [address] [address] [address] David Magana MONO # 1.1 103/ul Critically high 0.3-0.8 [facility] Comment on above: Performed By: #### M G, BMP, PHOS #### [facility] [address] [address] [address] David Magana Monocytes/100 WBC (Bld) 8.9 % Normal 1.7-12.0 [facility] Comment on above: Performed By: #### M G, BMP, PHOS #### [facility] [address] [address] [address] David Magana NEUT # 10.3 103/ul Critically high 1.4-6.5 [facility] Comment on above: Performed By: #### M G, BMP, PHOS #### [facility] [address] [place] [address] Dr. David Magana Neutrophils/100 WBC (Bld) 86.2 % Critically high 43.0-75.0 [facility] Comment on above: Performed By: #### M G, BMP, PHOS #### [facility] [address] [address] [address] David Magana Platelet mean volume (Bld) [Entitic vol] 11.1 fL Normal 9.5-13.5 [facility] Comment on above: Performed By: #### M G, BMP, PHOS #### [facility] [address] [place] [address] Dr. David Magana PLT 229 103/ul Normal 150-450 [facility] Comment on above: Performed By: #### M G, BMP, PHOS #### [facility] [address] [address] [address] David Magana RBC 4.36 106/ul Critically low 4.70-6.10 [facility] Comment on above: Performed By: #### M G, BMP, PHOS #### [facility] [address] [address] [address] David Magana WBC 11.9 103/ul Critically high 4.0-11.0 [facility] Comment on above: Performed By: #### M G, BMP, PHOS #### [facility] [address] [address] [address] David Magana PROF CHEM 8 (BAS METB)on Anion gap [Moles/Vol] 26.5 mmol/L Normal [facility] Comment on above: Performed By: #### C BC #### [facility] [address] [place] [address] Dr. David Magana Calcium [Mass/Vol] 8.2 mg/dL Critically low 8.5-10.1 [facility] Comment on above: Performed By: #### C BC #### [facility] [address] [place] [address] Dr. David Magana Chloride [Moles/Vol] 89 mmol/L Critically low 98-107 [facility] Comment on above: Performed By: #### C BC #### [facility] [address] [place] [address] Dr. David Magana CO2 [Moles/Vol] 14.5 mmol/L Critically low 21.0-32.0 [facility] Comment on above: Performed By: #### C BC #### [facility] [address] [place] [address] Dr. David Magana Creatinine [Mass/Vol] 2.78 mg/dL Critically high 0.70-1.30 [facility] Comment on above: Performed By: #### C BC #### [facility] [address] [place] [address] Dr. David Magana EGFR-AF ICELANDIC 27 mL/min/1.73m2 Critically low >=60 [facility] Comment on above: Performed By: #### C BC #### [facility] [address] [place] [address] Dr. David Magana EGFR-NON AF ICELANDIC 22 mL/min/1.73m2 Critically low >=60 [facility] Comment on above: Performed By: #### C BC #### [facility] [address] [place] [address] Dr. David Magana Glucose [Mass/Vol] 442 mg/dL Critically high 74-[address] [facility] Comment on above: Performed By: #### C BC #### [facility] [address] [address] [address] David Magana Potassium [Moles/Vol] 6.0 mmol/L Critically high 3.5-5.1 [facility] Comment on above: Performed By: #### C BC #### [facility] [address] [address] [address] David Magana Sodium [Moles/Vol] 124 mmol/L Critically low 136-145 [facility] Comment on above: Performed By: #### C BC #### [facility] [address] [place] [address] Dr. David Magana Urea nitrogen [Mass/Vol] 73.0 mg/dL Critically high 7.0-18.0 [facility] Comment on above: Performed By: #### C BC #### [facility] [address] [place] [address] Dr. David Magana Urea nitrogen/Creatinine [Mass ratio] 26.3 mg/mg Normal [facility] Comment on above: Performed By: #### C BC #### [facility] [address] [place] [address] Dr. David Magana Covid-19 PCR ([facility])on 06-16 SARS-CoV-2 (COVID-19) RNA SULTANA+probe Ql (Unsp spec) Detected Critically abnormal NOT DETECTED [facility] Comment on above: Result Comment: This test is not yet approved or cleared by the [place] FDA. When there are no FDA-approved or cleared tests available, and other criteria are met, FDA can make tests available under an emergency access mechanism called an Emergency Use Authorization (EUA). The EUA for this test is supported by the [place] of Health and Human Service's (HHS's) declaration [...] By: #### M ERICK Faith PHOS #### [facility] [address] [id number] David Magana ECHOCARDIO M/2D COMPLETEon 0 07-01-2022 ECHOCARDIO M/2D COMPLETE Patient: NADIR BETH Exam Date: 07/01/2022 : 1940 Gender:M Ordering : DR CLARIBEL CISNEROS M.D. Admission #: [id number] Family : VAN YOUSSEF . Order #: [id number] CLICK HERE TO VIEW EXAM ECHOCARDIOGRAM REPORT [...] M.D. on 07/01/2022 at 16:27 Normal [facility] Covid-19 PCR ([facility])on SARS-CoV-2 (COVID-19) RNA SULTANA+probe Ql (Unsp spec) Not detected Normal NOT DETECTED [facility] Comment on above: Result Comment: When [...] for this test is supported by the [employer] Language [employer] of Health and Human Service's declaration that [...] used). Performed By: #### C VDTB #### [facility] [address] [place] [address] Dr. David Magana CREATININE URINEon URINE CREAT 14.70 mg/dL Critically low 20.00-300.00 [facility] Comment on above: Performed By: #### M G, BMP, PHOS #### [facility] [address] [place] [address] Dr. David Magana GLYCOHEMOGLOBIN A1Con 2021 ADA RECOMMENDATION SEE BELOW Normal [facility] Comment on above: Result Comment: ADA RECOMMENDED LIMIT 4.0 - 6.0 ADA THERAPEUTIC TARGET < 7.0 ACTION SUGGESTED > 7.0 Performed By: #### A 1C #### [facility] [address] [place] [address] Dr. David Magana Glucose [Mass/Vol] 209 mg/dL Normal [facility] Comment on above: Performed By: #### A 1C #### [facility] [address] [place] [address] Dr. David Magana HbA1c (Bld) [Mass fraction] 8.9 % Critically high 4.5-6.2 [facility] Comment on above: Performed By: #### A 1C #### [facility] [address] [place] [address] Dr. David Magana MAGNESIUMon 06-08-2022 Magnesium [Mass/Vol] 2.3 mg/dL Normal 1.8-2.4 [facility] Comment on above: Performed By: #### M G, BMP, PHOS #### [facility] [address] [place] [address] Dr. David Magana PHOSPHORUSon 06-08-2022 Phosphate [Mass/Vol] 3.5 mg/dL Normal 2.6-4.7 [facility] Comment on above: Performed By: #### M G, BMP, PHOS #### [facility] [address] [place] [address] Dr. David Magana PROF CHEM 8 (BAS METB)on Anion gap [Moles/Vol] 10.6 mmol/L Normal [facility] Comment on above: Performed By: #### M G, BMP, PHOS #### [facility] [address] [place] [address] Dr. David Magana Calcium [Mass/Vol] 9.2 mg/dL Normal 8.5-10.1 [facility] Comment on above: Performed By: #### M Marcell, BMP, PHOS #### [facility] [address] [place] [address] Dr. David Magana Chloride [Moles/Vol] 102 mmol/L Normal 98-107 [facility] Comment on above: Performed By: #### M G, BMP, PHOS #### [facility] [address] [place] [address] Dr. David Magana CO2 [Moles/Vol] 30.1 mmol/L Normal 21.0-32.0 [facility] Comment on above: Performed By: #### M G, BMP, PHOS #### [facility] [address] [place] [address] Dr. David Magana Creatinine [Mass/Vol] 1.70 mg/dL Critically high 0.70-1.30 [facility] Comment on above: Performed By: #### M G, BMP, PHOS #### [facility] [address] [place] [address] Dr. David Magana EGFR-AF ICELANDIC 47 mL/min/1.73m2 Critically low >=60 [facility] Comment on above: Performed By: #### ERICK Jacques, PHOS #### [facility] [address] [address] [address] David Magana EGFR-NON AF ICELANDIC 39 mL/min/1.73m2 Critically low >=60 [facility] Comment on above: Performed By: #### ERICK Jacques, PHOS #### [facility] [address] [place] [address] Dr. David Magana Glucose [Mass/Vol] 197 mg/dL Critically high 74-[address] [facility] Comment on above: Performed By: #### ERICK Jacques, PHOS #### [facility] [address] [place] [address] Dr. David Magana Potassium [Moles/Vol] 4.7 mmol/L Normal 3.5-5.1 [facility] Comment on above: Performed By: #### ERICK Jacques, PHOS #### [facility] [address] [place] [address] Dr. David Magana Sodium [Moles/Vol] 138 mmol/L Normal 136-145 [facility] Comment on above: Performed By: #### ERICK Jacques, PHOS #### [facility] [address] [place] [address] Dr. David Magana Urea nitrogen [Mass/Vol] 25.0 mg/dL Critically high 7.0-18.0 [facility] Comment on above: Performed By: #### ERICK Jacques, PHOS #### [facility] [address] [place] [address] Dr. David Magana Urea nitrogen/Creatinine [Mass ratio] 14.7 mg/mg Normal [facility] Comment on above: Performed By: #### ERICK Jacques, PHOS #### [facility] [address] [place] [address] Dr. David Magana PROTEIN RAND URINEon 022 UR PROT <5.0 Normal <=11.9 [facility] Comment on above: Performed By: #### C REDOREEN, PROTU #### [facility] [address] [place] [address] Dr. David Magana BILIRUBIN CONJUGATED (DIRECT )on 04-28-2022 BILI, CONJUGATED 0.1 mg/dL Normal 0.0-0.2 [facility] Comment on above: Performed By: #### P OCGLUC #### [facility] [address] [place] [address] Dr. aDvid Magana CBC AUTO DIFFon 04-28-2022 BASO # 0.1 103/ul Normal 0.0-0.1 [facility] Comment on above: Performed By: #### C VDTBH #### [facility] [address] [place] [address] Dr. David Magana Basophils/100 WBC (Bld) 0.7 % Normal 0.2-2.0 [facility] Comment on above: Performed By: #### C VDTBH #### [facility] [address] [place] [address] Dr. David Magana EO # 0.5 103/ul Normal 0.0-0.7 [facility] Comment on above: Performed By: #### C VDTBH #### [facility] [address] [place] [address] Dr. David Magana Eosinophils/100 WBC (Bld) 6.7 % Normal 0.9-7.0 [facility] Comment on above: Performed By: #### C VDTBH #### [facility] [address] [place] [address] Dr. David Magana Erythrocyte distribution width (RBC) [Ratio] 13.6 % Normal 11.0-15.0 [facility] Comment on above: Performed By: #### C VDTBH #### [facility] [address] [place] [address] Dr. David Magana Hematocrit (Bld) [Volume fraction] 45.9 % Normal 42.0-54.0 [facility] Comment on above: Performed By: #### C VDTBH #### [facility] [address] [place] [address] Dr. David Magana Hemoglobin (Bld) [Mass/Vol] 14.9 g/dL Normal 14.0-18.0 [facility] Comment on above: Performed By: #### C VDTBH #### [facility] [address] [place] [address] Dr. David Magana IG # 0.03 10e3/ul Normal 0.00-0.03 [facility] Comment on above: Performed By: #### C VDTBH #### [facility] [address] [place] [address] Dr. David Magana IG % 0.4 % Normal 0.0-0.5 [facility] Comment on above: Performed By: #### C VDTBH #### [facility] [address] [place] [address] Dr. David Magana LYMPH # 1.0 103/ul Critically low 1.2-3.8 [facility] Comment on above: Performed By: #### C VDTBH #### [facility] [address] [place] [address] Dr. David Magana Lymphocytes/100 WBC (Bld) 13.4 % Critically low 20.5-60.0 [facility] Comment on above: Performed By: #### C VDTBH #### [facility] [address] [place] [address] Dr. David Magana MANUAL DIFF REQ NO Normal [facility] Comment on above: Performed By: #### C VDTBH #### [facility] [address] [place] [address] Dr. David Magana MCH (RBC) [Entitic mass] 33.8 pg Normal 25.9-34.0 [facility] Comment on above: Performed By: #### C VDTBH #### [facility] [address] [place] [address] Dr. David Magana MCHC (RBC) [Mass/Vol] 32.5 g/dL Normal 29.9-35.2 [facility] Comment on above: Performed By: #### C VDTBH #### [facility] [address] [address] [address] David Magana MCV (RBC) [Entitic vol] 104.1 fL Critically high 80.0-94.0 [facility] Comment on above: Performed By: #### C VDTBH #### [facility] [address] [place] [address] Dr. David Magana MONO # 0.8 103/ul Normal 0.3-0.8 [facility] Comment on above: Performed By: #### C VDTBH #### [facility] [address] [place] [address] Dr. David Magana Monocytes/100 WBC (Bld) 10.2 % Normal 1.7-12.0 [facility] Comment on above: Performed By: #### C VDTBH #### [facility] [address] [place] [address] Dr. David Magana NEUT # 5.1 103/ul Normal 1.4-6.5 [facility] Comment on above: Performed By: #### C VDTBH #### [facility] [address] [place] [address] Dr. David Magana Neutrophils/100 WBC (Bld) 68.6 % Normal 43.0-75.0 [facility] Comment on above: Performed By: #### C VDTBH #### [facility] [address] [place] [address] Dr. Davdi Magana Platelet mean volume (Bld) [Entitic vol] 11.3 fL Normal 9.5-13.5 [facility] Comment on above: Performed By: #### C VDTBH #### [facility] [address] [place] [address] Dr. David Magana PLT 185 103/ul Normal 150-450 [facility] Comment on above: Performed By: #### C VDTBH #### [facility] [address] [place] [address] Dr. David Magana RBC 4.41 106/ul Critically low 4.70-6.10 [facility] Comment on above: Performed By: #### C VDTBH #### [facility] [address] [address] [address] David Magana WBC 7.5 103/ul Normal 4.0-11.0 [facility] Comment on above: Performed By: #### C VDTBH #### [facility] [address] [address] [address] David Magana FREE T3on 04-28-2022 FREE T3 2.17 pg/mlL Critically low 2.18-3.98 [facility] Comment on above: Performed By: #### P OCGLUC #### [facility] [address] [address] [address] David Magana LIPID PROFILEon 04-28-2022 CHOL-HDL RATIO NORM SEE BELOW Normal [facility] Comment on above: Result Comment: 3.3 - 4.4 LOW RISK 4.4 - 7.1 AVERAGE RISK 7.1 - 11.0 MODERATE RISK >11.0 HIGH RISK Performed By: #### P OCGLUC #### [facility] [address] [address] [address] David Magana Cholesterol [Mass/Vol] 234 mg/dL Critically high <=200 [facility] Comment on above: Performed By: #### P OCGLUC #### [facility] [address] [address] [address] David Magana Cholesterol in HDL [Mass/Vol] 58 mg/dL Normal 40-60 [facility] Comment on above: Performed By: #### P OCGLUC #### [facility] [address] [address] [address] David Magana Cholesterol in LDL [Mass/Vol] 129.0 mg/dL Normal [facility] Comment on above: Performed By: #### P OCGLUC #### [facility] [address] [address] [address] David Magana Cholesterol.total/Cho lesterol in HDL [Mass ratio] 4.0 {ratio} Normal [facility] Comment on above: Performed By: #### P OCGLUC #### [facility] [address] [address] [address] David Magana HDL NORMAL > or = 60 mg/dl - LO W CARDIOVASCULAR RISK <40 mg/dl - HIGH CARDIOVASCULAR RISK Normal [facility] Comment on above: Performed By: #### P OCGLUC #### [facility] [address] [address] [address] David Magana LDL CALC NORMAL SEE BELOW Normal [facility] Comment on above: Result Comment: <100 mg/dl OPTIMAL 100 - 129 mg/dl NEAR OR ABOVE OPTIMAL 130 - 159 mg/dl BORDERLINE HIGH 160 - 189 mg/dl HIGH >190 mg/dl VERY HIGH Performed By: #### P OCGLUC #### [facility] [address] [address] [address] David Magana Triglyceride [Mass/Vol] 235 mg/dL Critically high <=150 [facility] Comment on above: Performed By: #### P OCGLUC #### [facility] [address] [address] [address] David Magana VLDL CALC 47.0 mg/dL Normal [facility] Comment on above: Performed By: #### P OCGLUC #### [facility] [address] [address] [address] David Magana PROF 14(COMP METB)on 022 Albumin [Mass/Vol] 3.2 g/dL Critically low 3.4-5.0 [facility] Comment on above: Performed By: #### P OCGLUC #### [facility] [address] [place] [address] Dr. David Magana Albumin/Globulin [Mass ratio] 0.9 {ratio} Normal [facility] Comment on above: Performed By: #### P OCGLUC #### [facility] [address] [address] [address] David Magana ALP [Catalytic activity/Vol] 77 U/L Normal 46-116 [facility] Comment on above: Performed By: #### P OCGLUC #### [facility] [address] [place] [address] Dr. David Magana ALT [Catalytic activity/Vol] 24 U/L Normal 16-63 [facility] Comment on above: Performed By: #### P OCGLUC #### [facility] [address] [address] [address] David Magana Anion gap [Moles/Vol] 13.1 mmol/L Normal [facility] Comment on above: Performed By: #### P OCGLUC #### [facility] [address] [address] [address] David Magana AST [Catalytic activity/Vol] 13 U/L Critically low 15-37 [facility] Comment on above: Performed By: #### P OCGLUC #### [facility] [address] [address] [address] David Magana Bilirubin [Mass/Vol] 0.3 mg/dL Normal 0.2-1.0 [facility] Comment on above: Performed By: #### P OCGLUC #### [facility] [address] [address] [address] David Magana Calcium [Mass/Vol] 8.8 mg/dL Normal 8.5-10.1 [facility] Comment on above: Performed By: #### P OCGLUC #### [facility] [address] [address] [address] David Magana Chloride [Moles/Vol] 106 mmol/L Normal 98-107 [facility] Comment on above: Performed By: #### P OCGLUC #### [facility] [address] [address] [address] David Magana CO2 [Moles/Vol] 27.5 mmol/L Normal 21.0-32.0 [facility] Comment on above: Performed By: #### P OCGLUC #### [facility] [address] [address] [address] David Magana Creatinine [Mass/Vol] 1.62 mg/dL Critically high 0.70-1.30 [facility] Comment on above: Performed By: #### P OCGLUC #### [facility] [address] [address] [address] David Magana EGFR-AF ICELANDIC 50 mL/min/1.73m2 Critically low >=60 [facility] Comment on above: Performed By: #### P OCGLUC #### [facility] [address] [address] [address] David Magana EGFR-NON AF ICELANDIC 41 mL/min/1.73m2 Critically low >=60 [facility] Comment on above: Performed By: #### P OCGLUC #### [facility] [address] [address] [address] David Magana Globulin (S) [Mass/Vol] 3.4 g/dL Normal [facility] Comment on above: Performed By: #### P OCGLUC #### [facility] [address] [address] [address] David Magana Glucose [Mass/Vol] 206 mg/dL Critically high 74-[address] [facility] Comment on above: Performed By: #### P OCGLUC #### [facility] [address] [address] [address] David Magana Potassium [Moles/Vol] 4.6 mmol/L Normal 3.5-5.1 [facility] Comment on above: Performed By: #### P OCGLUC #### [facility] [address] [address] [address] David Magana Protein [Mass/Vol] 6.6 g/dL Normal 6.4-8.2 [facility] Comment on above: Performed By: #### P OCGLUC #### [facility] [address] [address] [address] David Magana Sodium [Moles/Vol] 142 mmol/L Normal 136-145 [facility] Comment on above: Performed By: #### P OCGLUC #### [facility] [address] [address] [address] David Magana Urea nitrogen [Mass/Vol] 26.0 mg/dL Critically high 7.0-18.0 [facility] Comment on above: Performed By: #### P OCGLUC #### [facility] [address] [address] [address] David Magana Urea nitrogen/Creatinine [Mass ratio] 16.0 mg/mg Normal [facility] Comment on above: Performed By: #### P OCGLUC #### [facility] [address] [address] [address] David Magana T4on 04-28-2022 T4 [Mass/Vol] 7.70 ug/dL Normal 4.50-12.10 [facility] Comment on above: Performed By: #### P OCGLUC #### [facility] [address] [place] [address] Dr. David Magana TSHon 04-28-2022 TSH 2.187 uIU/mL Normal 0.358-3.740 [facility] Comment on above: Performed By: #### P OCGLUC #### [facility] [address] [place] [address] Dr. David Magana TSH RANGE SEE BELOW Normal [facility] Comment on above: Result Comment: <0.3 4 UIU/ml HYPERTHYROID 0.34-5.60 UIU/ml EUTHYROID >5.60 UIU/ml HYPOTHYROID Performed By: #### P OCGLUC #### [facility] [address] [place] [address] Dr. David Magana Vital Signs Date Time Vital Sign Value Performing Clinician Facility 07-10-2025 10:36-0400 Body height 172.7 cm Barrie Montoya MD Work Phone: [facility] 07-10-2025 10:36-0400 Body mass index (BMI) [Ratio] 27.22 kg/m2 Barrie Montoya MD Work Phone: [facility] 07-10-2025 10:36-0400 Body weight 81.19 kg Barrie Montoya MD Work Phone: [facility] 06-28-2025 11:28-0400 Body height 182.9 cm Blaise COLVINM Work Phone: [facility] 06-28-2025 11:28-0400 Body mass index (BMI) [Ratio] 25.09 kg/m2 Blaise COLVINM Work Phone: [facility] 06-28-2025 11:28-0400 Body weight 83.92 kg Blaise COLVINM Work Phone: [facility] 06-28-2025 11:28-0400 Respiratory rate 16 /min Blaise Brown DPM Work Phone: [facility] 05-08-2025 16:32-0400 Body height 182.9 cm Mony Ochoagel [employer] Work Phone: [facility] 05-08-2025 16:32-0400 Body mass index (BMI) [Ratio] 25.09 kg/m2 Mony Ochoagel [employer] Work Phone: [facility] 05-08-2025 16:32-0400 Body weight 83.92 kg Mony Ochoagel [employer] Work Phone: [facility] 04-12-2025 11:05-0400 Body height 182.9 cm Blaise Brown DPM Work Phone: [facility] 04-12-2025 11:05-0400 Body mass index (BMI) [Ratio] 24.95 kg/m2 Blaise Brown DPM Work Phone: [facility] 04-12-2025 11:05-0400 Body weight 83.46 kg Blaise Dao DPM Work Phone: [facility] 04-12-2025 11:05-0400 Respiratory rate 16 /min Blaise Chicas DPM Work Phone: [facility] 04-10-2025 12:58-0400 Body height 182.9 cm Barrie Montoya MD Work Phone: [facility] 04-10-2025 12:58-0400 Body mass index (BMI) [Ratio] 24.95 kg/m2 Barrie Montoya MD Work Phone: [facility] 04-10-2025 12:58-0400 Body weight 83.46 kg Barrie Montoya MD Work Phone: [facility] 03-08-2025 08:56-0400 Body height 182.9 cm Blaise Chicas DPM Work Phone: [facility] 03-08-2025 08:56-0400 Body mass index (BMI) [Ratio] 39.2 kg/m2 Blaise Chicas DPM Work Phone: [facility] 03-08-2025 08:56-0400 Body weight 131.09 kg Blaise Chicas DPM Work Phone: [facility] 03-08-2025 08:56-0400 Respiratory rate 18 /min Blaise Chicas DPM Work Phone: [facility] 12-04-2024 08:44-0500 Diastolic blood pressure 90 mm[Hg] MARQUIS NKANSAH-AMANKRA [facility] 12-04-2024 08:44-0500 Heart rate 78 /min MARQUIS NKANSAH-AMANKRA [facility] 12-04-2024 08:44-0500 Systolic blood pressure 160 mm[Hg] MARQUIS NKANSAH-AMANKRA [facility] 11-30-2024 08:28-0500 Body height 182.9 cm Blaise Chicas DPM Work Phone: [facility] 11-30-2024 08:28-0500 Body mass index (BMI) [Ratio] 39.2 kg/m2 Blaise Chicas DPM Work Phone: [facility] 11-30-2024 08:28-0500 Body weight 131.09 kg Blaise Chicas DPM Work Phone: [facility] 11-30-2024 08:28-0500 Respiratory rate 16 /min Blaise Chicas DPM Work Phone: [facility] 11-02-2024 08:09-0500 Blood Pressure Location MARQUIS NKANSAH-AMANKRA [facility] 11-02-2024 08:09-0500 Diastolic blood pressure 67 mm[Hg] MARQUIS NKANSAH-AMANKRA [facility] 11-02-2024 08:09-0500 Heart rate 65 /min MARQUIS NKANSAH-AMANKRA [facility] 11-02-2024 08:09-0500 Systolic blood pressure 102 mm[Hg] MARUQIS NKANSAH-AMANKRA [facility] 09-14-2024 08:19-0400 Body height 182.9 cm Blaise Chicas DPM Work Phone: [facility] 09-14-2024 08:19-0400 Body mass index (BMI) [Ratio] 39.2 kg/m2 Blaise Chicas DPM Work Phone: [facility] 09-14-2024 08:19-0400 Body weight 131.09 kg Blaise Chicas DPM Work Phone: [facility] 09-14-2024 08:19-0400 Diastolic blood pressure 79 mm[Hg] Blaise Chicas DPM Work Phone: [facility] 09-14-2024 08:19-0400 Heart rate 81 /min Blaise Chicas DPM Work Phone: [facility] 09-14-2024 08:19-0400 Systolic blood pressure 128 mm[Hg] Blaise Chicas DPM Work Phone: [facility] 08-08-2024 10:25-0400 Blood Pressure Location MARQUIS NKANSAH-AMANKRA [facility] 08-08-2024 10:25-0400 Diastolic blood pressure 82 mm[Hg] MARQUIS NKANSAH-AMANKRA [facility] 08-08-2024 10:25-0400 Systolic blood pressure 140 mm[Hg] MARQUIS LOUISE [facility] 08-03-2024 08:45-0400 Body height 182.9 cm Blaise Chicas DPM Work Phone: [facility] 08-03-2024 08:45-0400 Body mass index (BMI) [Ratio] 39.2 kg/m2 Blaise Chicas DPM Work Phone: [facility] 08-03-2024 08:45-0400 Body weight 131.09 kg Blaise Chicas DPM Work Phone: [facility] 08-03-2024 08:45-0400 Diastolic blood pressure 82 mm[Hg] Blaise Chicas DPM Work Phone: [facility] 08-03-2024 08:45-0400 Heart rate 75 /min Blaise Chicas DPM Work Phone: [facility] 08-03-2024 08:45-0400 Respiratory rate 18 /min Blaise Chicas DPM Work Phone: [facility] 08-03-2024 08:45-0400 Systolic blood pressure 130 mm[Hg] Blaise Chicas DPM Work Phone: [facility] 08-01-2024 11:24-0400 Body height 182.9 cm Barrie Montoya MD Work Phone: [facility] 08-01-2024 11:24-0400 Body mass index (BMI) [Ratio] 39.2 kg/m2 Barrie Montoya MD Work Phone: [facility] 08-01-2024 11:24-0400 Body weight 131.09 kg Barrie Montoya MD Work Phone: [facility] 08-01-2024 11:24-0400 Diastolic blood pressure 93 mm[Hg] Barrie Montoya MD Work Phone: [facility] 08-01-2024 11:24-0400 Heart rate 73 /min Barrie Montoya MD Work Phone: [facility] 08-01-2024 11:24-0400 Systolic blood pressure 182 mm[Hg] Barrie Montoya MD Work Phone: [facility] 07-20-2024 08:27-0400 Body height 182.9 cm Blaise Brown DPM Work Phone: [facility] 07-20-2024 08:27-0400 Body mass index (BMI) [Ratio] 26.04 kg/m2 Blaise Brown DPM Work Phone: [facility] 07-20-2024 08:27-0400 Body weight 87.09 kg Blaise Brown DPM Work Phone: [facility] 07-20-2024 08:27-0400 Diastolic blood pressure 81 mm[Hg] Blaise Brown DPM Work Phone: [facility] 07-20-2024 08:27-0400 Heart rate 75 /min Blaise Brown DPM Work Phone: [facility] 07-20-2024 08:27-0400 Respiratory rate 18 /min Blaise Brown DPM Work Phone: [facility] 07-20-2024 08:27-0400 Systolic blood pressure 130 mm[Hg] Blaise Brown DPM Work Phone: [facility] 07-06-2024 08:27-0400 Body height 182.9 cm Blaise Brown DPM Work Phone: [facility] 07-06-2024 08:27-0400 Body mass index (BMI) [Ratio] 26.04 kg/m2 Blaise Brown DPM Work Phone: [facility] 07-06-2024 08:27-0400 Body weight 87.09 kg Blaise Brown DPM Work Phone: [facility] 07-06-2024 08:27-0400 Diastolic blood pressure 81 mm[Hg] Blaise Brown DPM Work Phone: [facility] 07-06-2024 08:27-0400 Heart rate 77 /min Blaise Dao DPM Work Phone: [facility] 07-06-2024 08:27-0400 Systolic blood pressure 128 mm[Hg] Blaise Chicas DPM Work Phone: [facility] 10-14-2023 14:33-0500 Diastolic blood pressure 70 mm[Hg] Nereyda Patricia [facility] 10-14-2023 14:33-0500 Mean blood pressure 93 mm[Hg] Nereyda Patricia [facility] 10-14-2023 14:33-0500 Systolic blood pressure 138 mm[Hg] Nereyda Patricia [facility] 10-14-2023 14:18-0500 Blood Pressure Location Nereyda Patricia [facility] 10-14-2023 14:18-0500 Body temperature 97.88 [degF] Nereyda Patricia [facility] 10-14-2023 14:18-0500 Diastolic blood pressure 73 mm[Hg] Nereyda Patricia [facility] 10-14-2023 14:18-0500 Heart rate 91 /min Nereyda Patricia [facility] 10-14-2023 14:18-0500 Systolic blood pressure 143 mm[Hg] Nereyda Patricia [facility] 10-01-2023 12:13-0500 Diastolic blood pressure 66 mm[Hg] Nereyda Patricia [facility] 10-01-2023 12:13-0500 Mean blood pressure 104 mm[Hg] Nereyda Patricia [facility] 10-01-2023 12:13-0500 Systolic blood pressure 179 mm[Hg] Nereyda Patricia [facility] 10-01-2023 12:10-0500 Blood Pressure Location Nereyda Patricia [facility] 10-01-2023 12:10-0500 Body temperature 98.42 [degF] Nereyda Patricia [facility] 10-01-2023 12:10-0500 Diastolic blood pressure 77 mm[Hg] Nereyda Patricia [facility] 10-01-2023 12:10-0500 Heart rate 81 /min Nereyda Patricia [facility] 10-01-2023 12:10-0500 Respiratory rate 14 /min Nereyda Patricia [facility] 10-01-2023 12:10-0500 Systolic blood pressure 168 mm[Hg] Nereyda Patricia [facility] 06-10-2023 10:43-0400 Diastolic blood pressure 64 mm[Hg] Nereyda Patricia [facility] 06-10-2023 10:43-0400 Heart rate 76 /min Nereyda Patricia [facility] 06-10-2023 10:43-0400 Respiratory rate 16 /min Nereyda Patricia [facility] 06-10-2023 10:43-0400 SaO2% (BldA) [Mass fraction] 95 % Nereyda Patricia [facility] 06-10-2023 10:43-0400 Systolic blood pressure 121 mm[Hg] Nereyda Patricia [facility] 04-13-2023 14:19-0400 Diastolic blood pressure 70 mm[Hg] Nereyda Patricia [facility] 04-13-2023 14:19-0400 Mean blood pressure 95 mm[Hg] Nereyda Patricia [facility] 04-13-2023 14:19-0400 Systolic blood pressure 146 mm[Hg] Nereyda Patricia [facility] 04-13-2023 14:15-0400 Blood Pressure Location Nereyda Patricia [facility] 04-13-2023 14:15-0400 Body temperature 97.7 [degF] Nereyda Patricia [facility] 04-13-2023 14:15-0400 Diastolic blood pressure 87 mm[Hg] Nereyda Patricia [facility] 04-13-2023 14:15-0400 Heart rate 70 /min Nereyda Patricia [facility] 04-13-2023 14:15-0400 Systolic blood pressure 150 mm[Hg] Nereyda Patricia [facility] 06-09-2022 10:02-0400 Body temperature 96.98 [degF] Nereyda Patricia [facility] 06-09-2022 10:02-0400 Diastolic blood pressure 75 mm[Hg] Nereyda Patricia [facility] 06-09-2022 10:02-0400 Heart rate 72 /min Nereydasergio JoyaPatricia [facility] 06-09-2022 10:02-0400 SaO2% (BldA) [Mass fraction] 97 % Nereydasergio JoyaPatricia [facility] 06-09-2022 10:02-0400 Systolic blood pressure 139 mm[Hg] Nereydasergio JoyaPatricia [facility] 05-11-2022 11:30-0400 Diastolic blood pressure 102 mm[Hg] Bender SALAM [facility] 05-11-2022 11:30-0400 Heart rate 86 /min Bender SALAM [facility] 05-11-2022 11:30-0400 Respiratory rate 15 /min Bender SALAM [facility] 05-11-2022 11:30-0400 SaO2% (BldA) [Mass fraction] 95 % Bender SALAM [facility] 05-11-2022 11:30-0400 Systolic blood pressure 172 mm[Hg] Bender SALAM [facility] 05-11-2022 11:15-0400 Diastolic blood pressure 88 mm[Hg] Bender SALAM [facility] 05-11-2022 11:15-0400 Heart rate 86 /min Bender SALAM [facility] 05-11-2022 11:15-0400 Respiratory rate 18 /min Bender SALAM [facility] 05-11-2022 11:15-0400 SaO2% (BldA) [Mass fraction] 97 % Bender SALAM [facility] 05-11-2022 11:15-0400 Systolic blood pressure 170 mm[Hg] Bender SALAM [facility] 05-11-2022 11:10-0400 Diastolic blood pressure 108 mm[Hg] Bender SALAM [facility] 05-11-2022 11:10-0400 Heart rate 85 /min Bender SALAM [facility] 05-11-2022 11:10-0400 Respiratory rate 14 /min Bender SALAM [facility] 05-11-2022 11:10-0400 SaO2% (BldA) [Mass fraction] 97 % Bender SALAM [facility] 05-11-2022 11:10-0400 Systolic blood pressure 157 mm[Hg] Bender SALAM [facility] 05-11-2022 11:02-0400 Body temperature 97.34 [degF] Bender SALAM [facility] 05-11-2022 10:27-0400 Blood Pressure Location Bender SALAM [facility] 05-11-2022 10:23-0400 Blood Pressure Location Bender SALAM [facility] 05-11-2022 10:23-0400 Body temperature 98.24 [degF] Bender SALAM [facility] 03-31-2022 09:53-0400 Blood Pressure Location Nereydasergio JoyaPatricia [facility] 03-31-2022 09:53-0400 Body temperature 97.7 [degF] Nereyda Gomez [facility] 03-31-2022 09:53-0400 Diastolic blood pressure 72 mm[Hg] Nereyda Gomez [facility] 03-31-2022 09:53-0400 Heart rate 73 /min Nereyda Gomez [facility] 03-31-2022 09:53-0400 SaO2% (BldA) [Mass fraction] 96 % Nereyda Gomez [facility] 03-31-2022 09:53-0400 Systolic blood pressure 129 mm[Hg] Nereyda Gomez [facility] Encounters Encounter Date Encounter Type Care Provider Facility Start: 03-04-2026 ambulatory [facility] Facility:[facility] Start: 07-10-2025 End: 07-10-2025 RingTuheet Barrie Montoya MD Work Phone: [facility] Start: 07-10-2025 End: 07-10-2025 Bamboo flowspatrick Montoya MD Work Phone: [facility] Start: 07-10-2025 End: 07-10-2025 Office outpatient visit 25 minutes Barrie Montoya MD Work Phone: [facility] Comment on above: Tremor (Primary Dx); Neurogenic pain; Carotid stenosis, bilateral; Sequelae of cerebral infarction; JOSIAH (obstructive sleep apnea); Cervical paraspinal muscle spasm; B12 deficiency Start: 07-10-2025 End: 07-10-2025 ambulatory BARRIE MONTOYA Not Available Start: 06-28-2025 End: 06-28-2025 Bamboo flowsheet Blaise Chicas DPM Work Phone: [facility] Start: 06-28-2025 End: 06-28-2025 Bamboo flowsheet Blaise Chicas DPM Work Phone: [facility] Start: 06-28-2025 End: 06-28-2025 Patient encounter procedure Blaise Chicas DPM Work Phone: [facility] Comment on above: Verruca plantaris (P rimary Dx); Foot pain, right; Diabetes mellitus due to underlying condition with diabetic polyneuropathy, unspecified whether intermediate insulin use (HCC); Pain due to onychomycosis of toenails of both feet Start: 06-28-2025 End: 06-28-2025 ambulatory BLAISE CHICAS Not Available Start: 06-18-2025 End: 06-18-2025 ambulatory [facility] Start: 06-11-2025 End: 06-11-2025 ambulatory LU OLMEDO Facility:[facility] Start: 06-11-2025 End: 06-11-2025 Patient encounter procedure LU OLMEDO [facility] Start: 05-28-2025 End: 05-28-2025 ambulatory RUY [facility] Start: 05-17-2025 Evaluation and manag ement of inpatient RUY [facility] Start: 05-17-2025 Evaluation and manag ement of inpatient NICOLE REYES [facility] Start: 05-16-2025 Evaluation and manag ement of inpatient [facility] Start: 05-16-2025 Evaluation and manag ement of inpatient GARCÍA MUIR [facility] Start: 05-15-2025 Evaluation and manag ement of inpatient SAM MORA [facility] Start: 05-15-2025 End: 05-15-2025 ambulatory JERI ELZBIETA [facility] Start: 05-14-2025 Evaluation and manag ement of inpatient NEDRA [facility] Start: 05-14-2025 Evaluation and manag ement of inpatient NEDRA [facility] Start: 05-11-2025 Evaluation and manag ement of inpatient [facility] Start: 05-10-2025 Evaluation [facility] manag ement of [facility] Start: 05-10-2025 End: 05-17-2025 Evaluation and management of inpatient JADEN PIEDRA [facility] Start: 05-08-2025 End: 05-08-2025 Bamboo flowsheet Mony Herron PET GROOMER Work Phone: [facility] Start: 05-08-2025 End: 05-08-2025 Bamboo flowsheet Mony Herron PET GROOMER Work Phone: [facility] Start: 05-08-2025 End: 05-08-2025 Office outpatient visit 40 minutes Mony Herron PET GROOMER Work Phone: [facility] Comment on above: Benign essential mikel mor (Primary Dx); Neurogenic pain; Sequelae of cerebral infarction; Cervical paraspinal muscle spasm; JOSIAH (obstructive sleep apnea); Carotid stenosis, bilateral; Polyneuropathy Start: 05-08-2025 End: 05-08-2025 ambulatory MONY HERRON Not Available Start: 04-30-2025 End: 04-30-2025 ambulatory [facility] Start: 04-14-2025 End: 04-18-2025 Evaluation and management of inpatient DO Layne VERDUGO Facility:[facility] Start: 04-14-2025 End: 04-16-2025 Emergency department patient visit [facility] Start: 04-14-2025 ambulatory [facility] Start: 04-14-2025 Emergency department patient visit Rivas Griggs Facility:[facility] Start: 04-14-2025 End: 04-18-2025 Evaluation and management of inpatient Layne VERDUGO [facility] Start: 04-12-2025 End: 04-12-2025 Bamboo flowsheet Blaise Chicas DPM Work Phone: [facility] Start: 04-12-2025 End: 04-12-2025 Bamboo flowsheet Blaise Chicas DPM Work Phone: [facility] Start: 04-12-2025 End: 04-12-2025 Patient encounter procedure Blaise Chicas DPM Work Phone: [facility] Comment on above: Verruca plantaris (P rimary Dx); Foot pain, right; Diabetes mellitus due to underlying condition with diabetic polyneuropathy, unspecified whether intermediate insulin use ([facility]); Pain due to onychomycosis of toenails of both feet Start: 04-12-2025 End: 04-12-2025 ambulatory BLAISE CHICAS Not Available Start: 04-10-2025 End: 04-10-2025 Bamboo flowsheet Barrie Montoya MD Work Phone: [facility] Start: 04-10-2025 End: 04-10-2025 Bamboo flowsheet Barrie Montoya MD Work Phone: [facility] Start: 04-10-2025 End: 04-10-2025 Office outpatient visit 25 minutes Barrie Montoya MD Work Phone: [facility] Comment on above: Benign essential mikel mor (Primary Dx); Neurogenic pain; Sequelae of cerebral infarction; Cervical paraspinal muscle spasm; JOSIAH (obstructive sleep apnea); Carotid stenosis, bilateral Start: 04-10-2025 End: 04-10-2025 ambulatory BARRIE MONTOYA Not Available Start: 03-12-2025 End: 03-12-2025 ambulatory [facility] Start: 03-08-2025 End: 03-08-2025 Bamboo flowsheet Blaise [...] diabetic polyneuropathy, unspecified whether intermediate insulin use ([facility]); Pain due to onychomycosis of toenails of both feet Start: 03-08-2025 End: 03-08-2025 ambulatory BLAISE CHICAS Not Available Start: 02-28-2025 End: 02-28-2025 ambulatory [facility] Start: 02-15-2025 ambulatory [facility] Start: 02-14-2025 End: 02-17-2025 Emergency department patient visit [facility] Start: 01-03-2025 End: 01-03-2025 [facility] Start: 12-14-2024 End: 12-14-2024 ambulatory [facility] Start: 12-04-2024 End: 12-04-2024 ambulatory MARQUIS LOUISE Facility:[facility] Start: 12-04-2024 End: 12-04-2024 Patient encounter procedure MARQUIS LOUISE [facility] Start: 11-30-2024 End: 11-30-2024 Bamboo flowsheet Blaise [...] diabetic polyneuropathy, unspecified whether intermediate insulin use ([facility]); Pain due to onychomycosis of toenails of both feet Start: 11-30-2024 End: 11-30-2024 ambulatory BLAISE CHICAS Not Available Start: 11-06-2024 End: 11-06-2024 ambulatory Mejia SINGH Facility:[facility] Start: 11-06-2024 End: 11-06-2024 Patient encounter procedure Mejia SINGH [facility] Start: 11-02-2024 End: 11-02-2024 ambulatory MARQUIS NKANSAH-AMANKRA Facility:[facility] Start: 11-02-2024 End: 11-02-2024 Patient encounter procedure MARQUIS NKANSAH-AMANKRA [facility] Start: 10-30-2024 End: 10-30-2024 ambulatory Mejia SINGH Facility:[id number] Start: 10-25-2024 End: 10-25-2024 ambulatory MARQUIS NKANSAH-AMANKRA Facility:[facility] Start: 10-23-2024 End: 10-23-2024 ambulatory MARQUIS NKANSAH-AMANKRA Facility:[facility] Start: 10-23-2024 End: 10-23-2024 Patient encounter procedure MARQUIS NKANSAH-AMANKRA [facility] Start: 10-02-2024 End: 10-02-2024 ambulatory MARQUIS LOUISE Facility:[facility] Start: 09-25-2024 End: 09-25-2024 ambulatory MARQUIS NEELYDAYSI Facility:[facility] Start: 09-25-2024 End: 09-25-2024 [facility] Start: 09-14-2024 End: 09-14-2024 Bamboo flowsheet Blaise [...] diabetic polyneuropathy, unspecified whether buttermaker insulin use ([facility]); Pain due to onychomycosis of toenails [...] JOY Not Available Start: 08-22-2024 ambulatory MARQUIS LOUISE Facility: [place] Start: 08-17-2024 ambulatory MRAQUIS LOUISE Facility: [facility] Start: 08-14-2024 End: 08-17-2024 Telephone encounter Barrie Montoya MD Work Phone: [facility] 111 Start: 08-08-2024 End: 08-08-2024 ambulatory MARQUIS LOUISE [facility] Start: 08-08-2024 End: 08-08-2024 Patient encounter procedure MARQUIS LOUISE [facility] Start: 08-03-2024 End: 08-03-2024 Bamboo flowsheet Blaise [...] [facility] Start: 08-01-2024 End: 08-01-2024 Office [...] encounter procedure Blaise Chicas DPM Work Phone: [facility] Comment on above: Verruca plantaris (P rimary Dx); Foot pain, right; Xerosis cutis Start: 07-20-2024 End: 07-20-2024 ambulatory BLAISE CHICAS Not Available Start: 07-06-2024 End: 07-06-2024 Bamboo flowsheet Blaise Chicas DPM Work Phone: [facility] Start: 07-06-2024 End: 07-06-2024 Bamboo flowsheet Blaise Chicas DPM Work Phone: [facility] Start: 07-06-2024 End: 07-06-2024 Office outpatient visit 15 minutes Blaise Chicas DPM Work Phone: [facility] Comment on above: Xerosis cutis (Prima ry Dx); Verruca plantaris; Foot pain, right; Diabetes mellitus due to underlying condition with diabetic polyneuropathy, unspecified whether intermediate insulin use ([facility]); Onychomycosis; Toe pain, bilateral Start: 07-05-2024 End: 07-05-[facility] Start: 10-14-2023 End: 10-14-2023 Patient encounter procedure Nereyda Gomez [facility] Start: 10-01-2023 End: 10-01-2023 Patient encounter procedure Nereyda Gomez [facility] Start: 10-01-2023 End: 10-01-2023 Patient encounter procedure Nereyda Gomez [facility] Start: 09-13-2023 End: 09-13-2023 Patient encounter procedure Nereyda Gomez [facility] Start: 06-10-2023 End: 06-10-2023 Patient encounter procedure Nereyda Gomez [facility] Start: 04-15-2023 End: 04-15-2023 Lab Drop off Nereyda Gomez [facility] Start: 04-13-2023 End: 04-13-2023 Patient encounter procedure Nereyda Gomez [facility] Start: 03-24-2023 End: 03-25-2023 [...] End: 06-09-2022 Patient encounter procedure Nereyda Gomez [facility] Start: 06-08-2022 End: 06-09-2022 ambulatory GAMALIEL DALEY Facility:[facility] Start: 05-11-2022 End: 05-11-2022 Patient encounter procedure Napoleon NOVA [facility] Start: 04-28-2022 End: 04-29-[address] VAN YOUSSEF . Facility:[facility] Start: 03-31-2022 End: 03-31-2022 Patient encounter procedure Nereyda Gomez [facility] Start: 2019 End: 02-07-2019 Patient encounter procedure DEFAULT PHYSICIAN Facility:[facility] Procedures Date Procedure Procedure Detail Performing Clinician Start: 08-24-2024 CRYOTHERAPY SKIN LESION Rodney Joy MD Work Phone: Start: 05-11-2022 Colonoscopy Napoleon Fernandez Comment on above: 2 polyps, diveticulo sis, IH Start: 01-11-2017 Cardioversion Nereyda Modi nmmalvin Back structure, excl uding neck (body structure) Nereyda Gomez Cholecystectomy Nereyda mcdonough Colonoscopy Nereyda Gomez History of hernia repair Ave Gomez Tonsillectomy Nereyda Patricia Plan of Treatment Date Care Activity Detail Author Start: 10-09-2025 End: 10-09-2025 Patient encounter procedure [facility] Start: 09-20-2025 End: 09-20-2025 Patient encounter procedure 09/20/2025 11:40 AM EST Office Visit [facility] [address] [facility] [address] [place] [phone] Blaise Chicas, DPJim [address] [facility] [address] [place] [address] [facility] Start: 09-18-2025 End: 09-18-2025 Patient encounter procedure 09/18/2025 12:30 PM EST Office Visit [facility] [address] [facility] [address] [place] [address] Barrie Montoya MD [address] [address] [facility] Start: 09-11-2025 End: 09-11-2025 Patient encounter procedure [facility] Start: 08-23-2025 End: 08-23-2025 Patient encounter procedure 08/23/2025 10:50 AM EDT Office Visit [facility] [address] [facility] [address] [place] [address] Rodney Joy MD [address] [place] [address] [facility] Start: 07-16-2025 Influenza vaccination Influenza Vacc ine (#1) [facility] Start: 07-10-2025 End: 07-10-2025 Patient encounter procedure [facility] Comment on above: Arrived Start: 06-28-2025 End: 06-28-2025 Patient encounter procedure 06/28/2025 11:50 AM EDT Office Visit [facility] [address] [place] [address] [place] [address] Blaise Chicas DPM [address] [address] Verruca plantaris (Primary Dx); Foot pain, right; Diabetes mellitus due to underlying condition with diabetic polyneuropathy, unspecified whether intermediate insulin use (HCC); Pain due to onychomycosis of toenails of both feet [facility] Comment on above: Verruca plantaris (P rimary Dx); Foot pain, right; Diabetes mellitus due to underlying condition with diabetic polyneuropathy, unspecified whether buttermaker insulin use (HCC); Pain due to onychomycosis of toenails of both feet Start: 06-21-2025 End: 06-21-2025 Patient encounter procedure 06/21/2025 10:40 AM EDT Office Visit [facility] [address] [phone] Blaise Chicas DPM [address] [address] [facility] Start: 05-08-2025 End: 05-08-2025 Patient encounter procedure 05/08/2025 2:00 PM EDT Office Visit [facility] [address] [address] Mony Herron, PET GROOMER [address] Lori Burciaga, [address] [address] Arrived [facility] Comment on above: Arrived Start: 04-12-2025 End: 04-12-2025 Patient encounter procedure [facility] Comment on above: Verruca plantaris (P rimary Dx); Foot pain, right; Diabetes mellitus due to underlying condition with diabetic polyneuropathy, unspecified whether buttermaker insulin use ([facility]/HCC); Pain due to onychomycosis of toenails of both feet Start: 03-08-2025 End: 03-08-2025 Patient encounter procedure 03/08/2025 9:20 AM EDT Office Visit [facility] 112 [facility] [address] [place] [phone] Blaise Chicas DPM [address] [address] Verruca plantaris (Primary Dx); Foot pain, right; [...] EDT Office Visit [facility] 112 [facility] [address] [place] [address] Blaise Chicas DPM [address] [address] [facility] Start: 11-30-2024 End: 11-30-2024 Patient encounter procedure [facility] Comment on above: Verruca plantaris (P rimary Dx); Foot pain, right; Diabetes mellitus due to underlying condition with diabetic polyneuropathy, unspecified whether intermediate insulin use (CMS/HCC); Pain due to onychomycosis of toenails of both feet Start: 10-10-2024 End: 10-10-2024 Patient encounter procedure 10/10/2024 10:45 AM EST Office Visit [facility] JOSE B [address] [facility] [address] [place] [phone] Barrie Montoya MD [address] [facility] [address] [place] [address] [facility] Start: 09-14-2024 End: 09-14-2024 Patient encounter procedure [facility] Comment on above: Verruca plantaris (P rimary Dx); Foot pain, right; Diabetes mellitus due to underlying condition with diabetic polyneuropathy, unspecified whether buttermaker insulin use ([facility]); Pain due to onychomycosis of toenails of both feet Start: 08-24-2024 End: 08-24-2024 Patient encounter procedure [facility] Comment on above: Arrived Start: 08-03-2024 End: 08-03-2024 Patient encounter procedure [facility] Comment on above: Verruca plantaris (P rimary Dx); Foot pain, right; Xerosis cutis Start: 08-01-2024 End: 08-01-2024 Patient encounter procedure 08/01/2024 1:30 PM EDT Office Visit [facility] [address] [phone] Barrie Montoya MD 5319 [facility] [address] [address] [facility] Start: 08-01-2024 End: 08-01-2024 Patient encounter procedure 08/01/2024 11:30 AM EDT Office Visit [facility] [address] [phone] Barrie Montoya MD 5319 [facility] [address] [address] Arrived [facility] Comment on above: Arrived Start: 07-20-2024 End: 07-20-2024 Patient encounter procedure [facility] Comment on above: Verruca plantaris (P rimary Dx); Foot pain, right; Xerosis cutis Start: 07-16-2024 Influenza vaccination Influenza Vacc ine (#1) [facility] Start: 07-06-2024 End: 07-06-2024 Patient encounter procedure 07/06/2024 8:40 AM EDT Office Visit [facility] [address] [address] Blaise Chicas, LUIS E 3006 [facility] [address] [place] [address] Verruca plantaris (Primary Dx); Foot pain, right; Diabetes mellitus due to underlying condition with diabetic polyneuropathy, unspecified whether intermediate insulin use (CMS/HCC); Onychomycosis; Toe pain, bilateral; Xerosis cutis [facility] Comment on above: Verruca plantaris (P rimary Dx); Foot pain, right; Diabetes mellitus due to underlying condition with diabetic polyneuropathy, unspecified whether buttermaker insulin use (CMS/HCC); Onychomycosis; Toe pain, bilateral; Xerosis cutis Immunizations Immunization Date Immunization Notes Care Provider Fa cili 04-05-2025 zoster vaccine recombinant LU OLMEDO [facility] 08-15-2024 influenza virus vaccine, unspecified formulation Blaise Chicas DPM Work Phone: [facility] 10-21-2023 RSV vaccine, preF A-preF B, recombinant LU OLMEDO [facility] 08-20-2023 influenza virus vaccine, unspecified formulation Blaise Chicas DPM Work Phone: [facility] 10-21-2022 SARS-CoV-2 (COVID-19 ) [id number] Nereyda Gomez [facility] Comment on above: Result Comment: 2022: [id number] 08-26-2021 SARS-CoV-2 (COVID-19 ) mRNA BNT-162b2 vax [employer] [facility] 01-01-2021 SARS-CoV-2 (COVID-19 ) mRNA BNT-162b2 vax Nereyda Gomez [facility] 12-09-2020 SARS-CoV-2 (COVID-19 ) mRNA BNT-162b2 vax Nereyda Gomez [facility] 11-06-2020 zoster vaccine recombinant LU OLMEDO [facility] 08-27-2020 influenza virus vaccine, unspecified formulation Nereyda Gomze [facility] 10-30-2019 tetanus toxoid, reduced diphtheria toxoid, and acellular pertussis vaccine, adsorbed LU SHARA [facility] 10-30-2019 zoster vaccine recombinant LU OLMEDO [facility] 08-16-2017 pneumococcal conjugate vaccine, 13 valent Nereyda Gomez [facility] 08-05-2017 influenza, unspecified formulation Nereyda Gomez [facility] 09-20-2015 zoster vaccine, live Nereyda Nath [facility] NEGATED: Highlighted row has not occurred!10-13-2023 influenza virus vaccine, unspecified formulation Nereyda Gomez [facility] NEGATED: Highlighted row has not occurred!09-29-2023 influenza virus vaccine, unspecified formulation Nereyda Gomez [facility] Payers Date Payer Category Payer Private Health Insurance [id number] 2022 Unknown 2005 Unknown [id number] 2004 Medicare [id number] 1959 Medicare [id number] 1939 Unknown [id number] 2.16.8 40.1.930620.3.579.2.647 1939 Unknown [id number] 2.16.84 0.1.742739.3.579.2.593 1939 Unknown [id number] 2.16.84 0.1.230735.3.579.2.593 1939 Unknown [id number] 2.16.84 0.1.389118.3.579.2.593 1939 Unknown [id number] 2.16.84 0.1.419128.3.579.2.593 1939 Unknown [id number] 2.16.84 0.1.983553.3.579.2.593 1939 Unknown [id number] 2.16.84 0.1.619778.3.579.2.593 1939 Unknown [id number] 2.16.84 0.1.116498.3.579.2.593 1939 Unknown [id number] 2.16.84 0.1.732503.3.579.2.593 1939 Unknown [id number] 2.16.84 0.1.245018.3.579.2.593 1939 Unknown [id number] 2.16.84 0.1.721553.3.579.2.593 1939 Unknown [id number] 2.16.84 0.1.719323.3.579.2.593 1939 Unknown [id number] 2.16.8 40.1.608866.3.579.2.727 1939 Unknown [id number] 2.16.8 40.1.121950.3.579.2.727 1939 Unknown [id number] 2.16.8 40.1.074794.3.579.2.727 1939 Unknown [id number] 2.16.8 40.1.665205.3.579.2.727 1939 Unknown [id number] 2.16.8 40.1.495890.3.579.2.727 1939 Unknown [id number] 2.16. 840.1.681459.3.579.2.1286 1939 Unknown [id number] 2.16. 840.1.228447.3.579.2.128 1939 Unknown [id number] 2.16. 840.1.263859.3.579.2.1286 1939 Unknown [id number] 2.16. 840.1.934269.3.579.2.128 1939 Unknown [id number] 2.16. 840.1.469624.3.579.2.1286 1939 Unknown [id number] 2.16. 840.1.282378.3.579.2.128 1939 Unknown [id number] 2.16. 840.1.529120.3.579.2.1286 1939 Unknown [id number] 2.16. 840.1.986286.3.579.2.1286 1939 Unknown [id number] 2.16. 840.1.641204.3.579.2.1286 1939 Unknown [id number] 2.16.8 40.1.589620.3.579.2.727 1939 Unknown [id number] 2.16.8 40.1.546645.3.579.2.727 1939 Unknown [id number] 2.16.8 40.1.364920.3.579.2.72 1939 Unknown [id number] 2.16.8 40.1.275500.3.579.2.727 1939 Unknown [id number] 2.16.8 40.1.919542.3.579.2.727 1939 Unknown [id number] 2.16.8 40.1.487719.3.579.2.727 1939 Unknown [id number] 2.16.8 40.1.769466.3.579.2.727 1939 Unknown [id number] 2.16.8 40.1.412873.3.579.2.727 1939 Unknown [id number] 2.16.8 40.1.002199.3.579.2.727 1939 Unknown [id number] 2.16.8 40.1.898494.3.579.2.727 1939 Unknown [id number] 2.16.8 40.1.573858.3.579.2.727 1939 Unknown [id number] 2.16.8 40.1.492608.3.579.2.727 1939 Unknown [id number] 2.16.8 40.1.846311.3.579.2.727 1939 Unknown [id number] 2.16.8 40.1.742387.3.579.2.727 1939 Unknown [id number] 2.16.8 40.1.981219.3.579.2.727 1939 Unknown [id number] 2.16.8 40.1.377551.3.579.2.1259 1939 Unknown [id number] 2.16.8 40.1.114050.3.579.2.1259 1939 Unknown [id number] 2.16.8 40.1.963531.3.579.2.1259 1939 Unknown [id number] 2.16.84 0.1.086224.3.579.2.1259 1939 Unknown [id number] 2.16.84 0.1.481444.3.579.2.1259 1939 Unknown [id number] 2.16.84 0.1.076733.3.579.2.1259 1939 Unknown [id number] 2.16.84 0.1.596042.3.579.2.1259 1939 Unknown [id number] 2.16.84 0.1.769235.3.579.2.1259 1939 Unknown [id number] 2.16.84 0.1.923225.3.579.2.125 1939 Unknown [id number] 2.16.84 0.1.690913.3.579.2.125 1939 Unknown [id number] 2.16.84 0.1.122404.3.579.2.1259 1939 Unknown [id number] 2.16.84 0.1.236173.3.579.2.1259 Social History Date Type Detail Facility Start: 03-31-2022 End: 08-24-2024 Tobacco smoking status Ex-smoker (finding) [facility] Start: 06-11-2025 Tobacco smoking status Never [facility] Start: 08-24-2024 End: 06-28-2025 Sex Assigned At Male [facility] Start: 08-24-2023 Tobacco smoking stat RUSTIS Tobacco smoking consumption unknown [facility] Start: 08-03-2024 End: 06-28-2025 Alcoholic beverage intake Lifetime non-drinker (finding) [facility] Start: 09-07-2023 Alcohol Comment caffeine 1-2 cups/da y [facility] Start: 1940 Sex assigned at Not on file [facility] History of tobacco use Current smoker [facility] History of tobacco use Cigarette Smoker [facility] Start: 08-24-2024 Tobacco use and exposure Smokeless tobacco non-user [facility] Start: 08-24-2024 End: 06-28-2025 History of Social function [facility] Sexual Orientation [facility] Start: 02-26-2010 Sex Male (finding) [facility] Functional Status Date Assessment Result Facility 12-04-2024 Functional Status N/A [facility] 11-02-2024 Functional Status N/A [facility] 10-23-2024 Functional Status N/A [facility] 09-25-2024 Functional Status N/A [facility] 08-08-2024 Functional Status N/A [facility] 10-14-2023 Functional Status N/A [facility] 10-01-2023 Functional Status No [facility] 04-13-2023 Functional Status N/A [facility] 06-09-2022 Functional Status N/A [facility] 05-11-2022 Functional Status N/A [facility] Clinical Notes 03-31-2022 to 07-10-2025 Barrie Montoya MD - 07/10/2025 10:30 AM EDTMchance Montoya MD - 07/10/2025 10:30 AM EDPaulo Montoya MD - 07/10/2025 10:30 AM EDPaulo Montoya MD - 07/10/2025 10:30 AM EDPaulo Montoya MD - 07/10/2025 10:30 AM EDT Note Date & Type Note Facility 07-10-2025 History of Present illness Narrative Associated Problem(s): Tremor (Mere reduction of PRM will not improve rivaroxaban metabolism.) Decr PRM to 50 hs x 2 weeks, then stop. Redo exam off meds. Associated Problem(s): Neurogenic pain Restart duloxetine 20 hs. Observe for (worsening of) restlessness Associated Problem(s): Carotid stenosis, bilateral Plan redo CTA neck 2026 (US carotids is underestimating stenosis). Associated Problem(s): Sequelae of cerebral infarction (Anticoag managed by cardiology.) Associated Problem(s): JOSIAH (obstructive sleep apnea) Family requesting that this office take over JOSIAH. Split-night study ([facility] [place]), split for AHI >= 5. Afterward, will need new machine, supplies, etc. Download 1 mo then before appt. Associated Problem(s): Cervical paraspinal muscle spasm PT when/if needed. Associated Problem(s): B12 deficiency --- partially or fully due to PPI. (Continue B12 injections.) Images from the original note were not included. Outpatient Progress Note Prev Appt: Visit date not found Chief Complaint Patient presents with Tremors Appointment Note -- 2 mo Assessment and Plan - Assessment & Plan Tremor (Mere reduction of PRM will not improve rivaroxaban metabolism.) Decr PRM to 50 hs x 2 weeks, then stop. Redo exam off meds. Neurogenic pain Restart duloxetine 20 hs. Observe for (worsening of) restlessness Carotid stenosis, bilateral Plan redo CTA neck 2026 ([place] carotids is underestimating stenosis). Sequelae of cerebral infarction (Anticoag managed by cardiology.) JOSIAH (obstructive sleep apnea) Family requesting that this office take over JOSIAH. Split-night study ([facility] [place]), split for AHI >= 5. Afterward, will need new machine, supplies, etc. Download 1 mo then before appt. Cervical paraspinal muscle spasm PT when/if needed. B12 deficiency --- partially or fully due to PPI. (Continue B12 injections.) No orders of the defined types were placed in this encounter. Follow-Up - Follow up in about 2 months (around 09/09/2025). History of Present Illness, Associated Treatments and Results - Dx (JOSIAH) Tx OFF BiPAP @ 31/10 AEs Hx JOSIAH [facility] Failed Semeiology Circadian Noct oxim PSG _ ([place]) - _ PAPT ([place]) - AHI=8.1 @ 31/10 (max pressure) MSLT MWT Imaging Testing Surgery Dx TREMOR Tx PRM 50 bid (decr) (+ labetalol --card) AEs Hx PRM decreased due to rivaroxaban - but of course, a mere decrease does not change the metabolism. Pt may be more parkinsonian currently - see exam. Onset Semeiology Tremor R>>L hand, often at rest. Handwriting messy, smaller. Unclear if gait has changed. EtOH effect uncertain. Imaging Testing Surgery Failed PREV - Sinemet 25/100 bid (ineff) Dx PN . PAIN . (B12) . B6 Tx REMAINS OFF dulox 20 B complex (for B6) (B12 inj --PCP) AEs Hx Paraesthesiae are bothersome to pt. Discussed med options, does not want tor etry GBP. Onset Semeiology Numbness paraesthesiae constantly. Burning when walking, incr'd when GBP stopped. Imaging Testing Labs - 576/16/475/16, was 285/16/503/14.1 ... B6=29, was 6.5L Surgery Failed GBP 1800 (somn) Dx STROKE Tx (ASA + rivaroxaban + ezetimibe + inclisiran inj --card) AEs Hx No recent sx. Adm [facility] 04/2025 dysarthria. Onset Semeiology Imaging MR brain (02/2025, [facility]) - rev'd with pt - no report sent - on my review, atrophy mod-sev, 8-10 UBOs, most tiny, 2 mod incl R fro & R splenium ml CTA head (04/2025 [facility] [place] - stenosis R M1 mod CTA neck (04/2025 [facility] [place] - 50% B MRA head (02/2025, [facility]) - no stenoses MRA neck (02/2025, [facility]) - no stenoses, dom R vert US carotids (02/2025, [facility]) - < 50% B by velocity, but mod plaque poss causing stenosis CT head (04/2025, [facility] [place]) - hypodensity L caudate 8 mm Testing Surgery Failed Dx MYOFASCIITIS Tx Home PT AEs Hx [...] ___, unchanged: ___, orig: ___ CNN - Hypomimia ... ?hypophonia, unchanged: ___, orig: ___ Motor - ___, unchanged: ___, orig: ___ Sens - ___, unchanged: Vibr, temp loss distal LEs, orig: ___ Reflex - ___, unchanged: AJ 0B, orig: ___ Coord - Tremor, mostly at rest ... Some rigidity and poss some cogwheeling, unchanged: ___, orig: Tremor R>>L hand mostly end of travel, handwriting messy but not small Gait - 4 steps to turn, unchanged: ___, orig: Stride short; hunched; not typically parkinsonian, no hand tremor, a bit atactic on turn Vestib - ___, unchanged: ___, orig: ___ MSK - Spasm - SCMs Tr C mild, unchanged: ___, orig: ___ Other - ___, unchanged: ___, orig: ___ Vital Signs - Visit Vitals Ht 5' 8 Wt 179 lb BMI 27.22 kg/m Smoking Status Former BSA 1.97 m Review of Systems - . Const: [...] Laterality Date BACK SURGERY [address] ANGIOGRAM ABDOMEN PELVIS 05/11/2025 CT ANGIOGRAM ABDOMEN PELVIS 05/11/2025 CT ANGIOGRAM HEART CORONARY 05/11/2025 CT ANGIOGRAM TAVR 05/11/2025 GALL BLADDER HERNIA REPAIR 1979 RENAL ARTERY STENT 2016 stents kidney Allergies Allergen Reactions Iodinated Contrast Media Other Reaction(s): Unknown Nitroglycerin Other Reaction(s): Not available, Unknown Statins Other Reaction(s): elevated liver enzymes, Unknown Family History Problem Relation Name Age of Onset Cancer Mother Heart disease Father Melanoma Neg Hx Outpatient Encounter Medications as of 07/10/2025 Medication Sig Dispense Refill acetaminophen (Tylenol) 500 MG tablet Take 1,000 mg by mouth every 6 (six) hours if needed for mild pain acyclovir (Zovirax) 400 MG tablet Take 1 tablet twice a day by oral route for 30 days. (Patient not taking: Reported on 05/08/2025) alogliptin (Nesina) 25 MG tablet Take 1 tablet by mouth in the morning. (Patient not taking: Reported on 05/08/2025) ALPRAZolam (Xanax) 0.25 MG tablet every 12 [...] taking: Reported on 05/08/2025) 90 capsule 1 empagliflozin (Jardiance) 25 MG [...] before bedtime. Before meals and at bed.) KLOR-CON 20 MEQ ER tablet Take 1 tablet by mouth in the morning and 1 tablet before bedtime. labetalol (Normodyne) 300 MG tablet 3 (three) times a day Lasix 20 MG tablet 1 (one) time each day at the same time. (Patient taking differently: Take 40 mg by mouth Daily) levoFLOXacin (Levaquin) 750 MG tablet 1 (one) time each day at the same time. linaGLIPtin (Tradjenta) 5 MG tablet Take 5 [...] the evening and 500 mg before bedtime. metoclopramide (Reglan) 5 MG tablet every 12 (twelve) hours (Patient not taking: Reported on 05/08/2025) omeprazole (PriLOSEC) [address] capsule Take [...] into inhaler and inhale in the morning. No facility-administered encounter medications on file as of 07/10/2025. Barrie Montoya M.D. [facility] ? [address] [facility] [address] ? [place] [address] ? ? fax Neurology ? Clinical Neurophysiology ? Epilepsy ? Sleep Disorders ? Clinical Informatics documented in this encounter [facility] 06-28-2025 History of Present illness Narrative Patient: Nadir Beth : 1940 PCP: Van Youssef MD SUBJECTIVE Nadir Beth 85 y.o. presents today for follow up of skin lesion/neoplasm of unknown origin to the right foot Pt states that previous treatment of acid tx with some improvement Pt rates pain the pain on a 1-10 scale an intensity of 5 Pt presents today for followup. Patient is [...] Basal cell carcinoma COVID-19 11/22/2020 Diabetes (HCC) Medications: Current Outpatient Medications: acetaminophen (Tylenol) 500 MG tablet, Take 1,000 mg by mouth every 6 (six) hours if needed for mild pain, Disp: , Rfl: acyclovir (Zovirax) 400 MG tablet, Take 1 tablet twice a day by oral route for 30 days. (Patient not taking: Reported on 05/08/2025), Disp: , Rfl: alogliptin (Nesina) 25 MG tablet, Take 1 tablet by mouth in the morning. (Patient not taking: Reported on 05/08/2025), Disp: , Rfl: ALPRAZolam (Xanax) 0.25 MG tablet, every 12 (twelve) hours., Disp: , Rfl: aspirin 81 MG EC tablet, Take 1 tablet by mouth in the morning., Disp: , Rfl: B-Complex tablet, as directed Orally, Disp: , Rfl: bacitracin 500 UNIT/GM ointment, Apply 1 application topically in the morning and 1 application before bedtime., Disp: , Rfl: budesonide-formoterol (Symbicort) 80-4.5 MCG/ACT inhaler, Inhale 2 puffs in the morning and 2 puffs before bedtime. Rinse mouth with water after use to reduce aftertaste and incidence of candidiasis. Do not swallow., Disp: , Rfl: cetirizine (ZyrTEC) 10 MG chewable tablet, Chew 10 mg Daily, Disp: , Rfl: cholecalciferol (Vitamin D-[address]) 25 MCG (1000 UT) tablet, Take 2,000 Units by mouth in the morning., Disp: , Rfl: cloNIDine (Catapres) 0.1 MG tablet, Take 1 tablet by mouth in the morning and 1 tablet before bedtime. (Patient taking differently: Take 0.2 mg by mouth in the morning and 0.2 mg before bedtime.), Disp: , Rfl: dicyclomine (Bentyl) 10 MG capsule, Take 1 capsule every day by oral route., Disp: , Rfl: DULoxetine (Cymbalta) [address] capsule, Take 1 capsule (20 mg) by mouth at bedtime (Patient not taking: Reported on 05/08/2025), Disp: 90 capsule, Rfl: 1 empagliflozin (Jardiance) [...] 1 tablet before bedtime., Disp: , Rfl: fluticasone-salmeterol (AirDuo RespiClick) 113-14 MCG/ACT inhaler, Inhale 1 puff in the morning and 1 puff before bedtime. Rinse mouth with water after use to reduce aftertaste and incidence of candidiasis. Do not swallow., Disp: , Rfl: glimepiride (Amaryl) 4 MG tablet, Take 1 tablet by mouth in the morning and 1 tablet before bedtime., Disp: , Rfl: insulin lispro protamine-insulin lispro (HumaLOG MIX 50/50 KWIKPEN) (50-50) 100 UNIT/ML injection, Inject under the skin in the morning and in the evening. Inject with meals. (Patient taking differently: Inject under the skin in the morning and at noon and in the evening and before bedtime. Before meals and at bed.), Disp: , Rfl: KLOR-CON 20 MEQ ER tablet, Take 1 tablet by mouth in the morning and 1 tablet before bedtime., Disp: , Rfl: labetalol (Normodyne) 300 MG tablet, 3 (three) times a day, Disp: , Rfl: Lasix 20 MG tablet, 1 (one) time each day at the same time. (Patient taking differently: Take 40 mg by mouth Daily), Disp: , Rfl: levoFLOXacin (Levaquin) 750 MG tablet, 1 (one) time each day at the same time., Disp: , Rfl: linaGLIPtin (Tradjenta) 5 MG tablet, Take 5 mg by mouth Daily, Disp: , Rfl: loratadine (Claritin Reditabs) 10 MG disintegrating tablet, Take 10 mg by mouth Daily, Disp: , Rfl: magnesium oxide 500 MG tablet, Take 500 mg by mouth in the morning and 500 mg in the evening and 500 mg before bedtime., Disp: , Rfl: metFORMIN (Glucophage) 500 MG tablet, Take 500 mg by mouth in the morning and 500 mg in the evening and 500 mg before bedtime., Disp: , Rfl: metoclopramide (Reglan) 5 MG tablet, every 12 (twelve) hours (Patient not taking: Reported on 05/08/2025), Disp: , Rfl: omeprazole (PriLOSEC) [address] capsule, Take 2 capsules every day by oral route for 90 days., Disp: , Rfl: pioglitazone (Actos) 45 MG tablet, TAKE 1 TABLET BY MOUTH EVERY DAY for 90, Disp: , Rfl: polyethylene glycol, PEG, 3350 (Miralax) 17 g packet, Take 17 g by mouth Daily as needed, Disp: , Rfl: potassium chloride (Klor-Con) 20 MEQ packet, Take 20 mEq by mouth Daily, Disp: , Rfl: prednisoLONE acetate (Pred-Forte) 1 % ophthalmic suspension, INSTILL 1 DROP INTO RIGHT EYE 3 TIMES A DAY DIRECTED, Disp: , Rfl: primidone (Mysoline) 250 MG tablet, 1/2 tab BID (Patient taking differently: Take 100 mg by mouth in the morning and 100 mg before bedtime. 1/2 tab BID.), Disp: 90 tablet, Rfl: 1 psyllium (Metamucil) 58.6 % packet, Take 1 packet by mouth Daily Mix and drink with at least 8 ounces of water or juice., Disp: , Rfl: rivaroxaban (Xarelto) 15 MG tablet, Take 15 mg by mouth, Disp: , Rfl: spironolactone (Aldactone) 25 MG tablet, Take 25 mg by mouth Daily, Disp: , Rfl: tamsulosin (Flomax) 0.4 MG 24 hr capsule, Take 1 capsule every day by oral route for 90 days., Disp: , Rfl: tiotropium (Spiriva) 18 MCG inhalation capsule, Place 1 capsule into inhaler and inhale in the morning., Disp: , Rfl: Social History: Social History [...] Health Financial Resource Strain: Low Risk (05/10/2025) Received from [facility] Overall Financial Resource Strain (CARDIA) Difficulty of Paying Living Expenses: Not hard at all Food Insecurity: No Food Insecurity (05/10/2025) Received from [facility] Hunger Vital Sign Within the past 12 months, you worried that your food would run out before you got the money to buy more.: Never true Ran Out of Food in the Last Year: Not on file Transportation Needs: No Transportation Needs (05/10/2025) Received from [facility] Transportation In the past 12 months, has lack of transportation kept you from medical appointments or from getting medications?: No Lack of Transportation (Non-Medical): Not on file Physical Activity: Not on file Stress: Not on file Social Connections: Not on file Intimate Partner Violence: Unknown (05/10/2025) Received from [facility] Humiliation, Afraid, Rape, and Kick questionnaire Fear of Current or Ex-Partner: No Emotionally Abused: Not on file Physically Abused: Not on file Sexually Abused: Not on file Housing Stability: Low Risk (05/10/2025) Received from [facility] Housing Stability Vital Sign In the last 12 months, was there a time when you were not able to pay the mortgage or rent on time?: No Number of Times Moved in the Last Year: Not on file At any time in the past 12 months, were you homeless or living in a nursing home (including now)?: No ROS: Gastrointestinal: denies abdominal pain, ulcers, or [...] and negative PT pedal pulses NEURO: 5.07 Beattie Sheldon monofilament test diminished to digits and forefoot bilaterally 125Hz tuning fork diminished to 1st MPJ bilaterally ORTHO: Positive pain on palpation to nails 1 through 10 Minimal pain on palpation of right foot lesion ASSESSMENT 1. Verruca plantaris 2. Foot pain, right 3. Diabetes mellitus due to underlying condition with diabetic polyneuropathy, unspecified whether buttermaker insulin use (HCC) 4. Pain due to onychomycosis of toenails [...] Blaise Chicas DPM documented in this encounter [facility] 06-18-2025 Note [place] [facility] - [facility] Subjective Nadir Beth is a 85 y.o. year old male patient being seen for 1 mo follow up s/p TAVR. Had echo last week. He is sending back event monitor today that was placed s/p procedure due to new LBBB. He saw Ruy Sullivan CNP in the office last month. No changes to diuretic were made after labs were drawn. Daughter states he was more SOB and had LE edema with seeping so Dr. Youssef increased furosemide to 40mg bid until he was seen by Dr. Cisneros today in the office. All symptoms have improved since increase. He started Leqvio injections last month. Also, he was referred to see pulmonary at [facility] and daughter wants to know if they can see someone more locally. 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 He was admitted to the [facility] in August 2022 due to hyponatremia, hyperkalemia and acute kidney injury, leukocytosis secondary to COVID-19 causing dehydration. I saw him on 05/24/2023 and the office and he had significant evidence of volume overload by exam and echocardiogram. I intensified his diuretic regimen. He ended up getting admitted to the [facility] with acute heart failure exacerbation and [...] On 02/14/2025 he was admitted to the [facility] with altered mental statu (more content not included)... [facility] 06-12-2025 Note Patient Education Urology Benign Prostatic [...] Follow these instructions at home: ??? Take yhqi-rhs-asgnmyb and prescription medicines only as told by [...] do not get (more content not included)... [facility] 05-28-2025 Note SUBJECTIVE Reason for Visit: Nadir Beth is a 85 y.o. year old male patient being seen for status post TAVR follow-up. HPI: Nadir Beth is a 85 y.o. year old male with significant medical history of A-fib on Xarelto, hypertension, HFpEF, CKD, recent history of CVA 4 months back, renal artery stenosis transferred from [facility] for acute on chronic heart failure. Patient had history of stroke 4 months back and was in rehab patient has been having progressive lower extremity edema for few days. Patient was advised to increase his Lasix from 20 to 40 mg and blood work was done which showed BNP 6214 and was advised to go to the ED. In [place] ED chest x-ray showed pulmonary vascular congestion [...] times daily (more content not included)... 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 [facility] 05-17-2025 Note Cardiology Inpatient Progress Note Subjective Reason for consult: Acute on chronic HFpEF, hypertension urgency, TAVR. HPI: Nadir Beth is a 85 y.o. year old male with significant medical history of A-fib on Xarelto, hypertension, HFpEF, CKD, recent history of CVA 4 months back, renal artery stenosis transferred from [facility] for acute on chronic heart failure. Patient had history of stroke 4 months back and was in rehab patient has been having progressive lower extremity edema for few days. Patient was advised to increase his Lasix from 20 to 40 mg and blood work was done which showed BNP 6214 and was advised to go to the ED. In [place] ED chest x-ray showed pulmonary vascular congestion [...] with even (more content not included)... [facility] 05-17-2025 Note Discharge Planning MATHEW sent updates through [facility] to [facility]. Patient is medically ready for discharge. MATHEW confirmed facility is able to accept patient today. MATHEW set up ambulance transport with [facility] for 7:35 PM. Call report # ([phone]. Patient and his family notified. Treatment team and facility notified. DC packet left with patient's physical chart. [facility] 05-17-2025 Note Physical Therapy A PT treatment was attempted, however the patient was unavailable and out of the room. Will continue to follow patient for PT intervention. [facility] 05-17-2025 Note Cardiothoracic Surge ry Progress Note 05/17/2025 Room: [address] [place] [address] Subjective Sitting in bed. No complaints. Denies [...] Problems: Primary hypertension Acute congestive heart failure ([facility]) History of CVA (cerebrovascular accident) Type 2 diabetes mellitus, with long-term current use of insulin ([facility]) Other hyperlipidemia Chronic atrial fibrillation ([facility]) Chronic kidney disease Elevated troponin S/P TAVR (transcatheter aortic valve replacement) Aortic stenosis, severe Angina pectoris, unstable ([facility]) Nonrheumatic aortic valve stenosis Plan: [...] Cardiothoracic Surgery Inpatient from 8am-4pm call Ascom #[phone]. Only use [employer] chat for general questions. If unable to reach Ascom Number call hospital cold type composing machine operator for Cardiothoracic Provider Perinatal Instructor. Cardiothoracic Surgery outpatient Office Number [phone]. Cardiothoracic Surgery outpatient . [facility] 05-17-2025 Note Attestation signed by Nikolas [...] anticoagulation should be held. Nikolas Gonzalez MD [facility] Pulmonary and Critical Care Medicine Primary Pulmonology Progress Note Patient - Nadir Beth Age - 85 y.o. - 1940 [facility] # - [id number] Date of Admission - 05/10/2025 2:37 AM [...] was admitted as a direct transfer from [facility] on 05/10/2025 for acute on chronic heart failure. 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 He presented to the ED on the advice of his physician following an increase in lower extremity edema with associated labs showing a BNP 6200. In the [facility] ED he was found to have pulmonary vascular congestion with right sided pleural effusion on chest x-ray, and found to be hypertensive at 190/68, and EKG showed A-fib, he was initially managed medically with lasix and antihypertensives prior to transfer. Patient follows up with Dr. Bland who had scheduled right heart cath on 05/10/2025. At [facility] echo was performed which was unable to [...] ABG: No results found for: PHART , AWS0EOI , PO2ART , JZA3FLP , IONCALART No results found for: PHVEN , VFW6CEM , PO2VEN , RBJ1BFA , IONCALVEN CBC: Results from last 7 [...] 0338 SODIUM (more content not included)... [facility] 05-16-2025 Note Physical Therapy Patient defers session at this time due to significant fatigue and headache. Patient recently transferred out of MICU status post TAVR on 05/15. PT will check back at a later time to complete session. [facility] 05-16-2025 Note Attestation signed by García [...] was admitted as a direct transfer from [facility] on 05/10/2025 for acute on chronic heart failure. 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 He presented to the ED on the advice of his physician following an increase in lower extremity edema with associated labs showing a BNP 6200. In the [facility] ED he was found to have pulmonary vascular congestion with right sided pleural effusion on chest x-ray, and found to be hypertensive at 190/68, initially managed medically with lasix and antihypertensives prior to transfer. At [facility] echo was performed which was unable to [...] ABG: No results found for: PHART , [id number] , PO2ART , JZJ3ZAW , IONCALART No results found for: PHVEN , VBN7ZSI , PO2VEN , [id number] , IONCALVEN CBC: Results from last 7 [...] from l (more content not included)... [facility] 05-16-2025 Note Occupational Therapy Name: Nadir [...] Check No Charge Time attempted: 1004 [facility] 05-16-2025 Note Cardiology Inpatient Progress Note Subjective Reason for consult: Acute on chronic HFpEF, hypertension urgency, TAVR. HPI: Nadir Beth is a 85 y.o. year old male with significant medical history of A-fib on Xarelto, hypertension, HFpEF, CKD, recent history of CVA 4 months back, renal artery stenosis transferred from [facility] for acute on chronic heart failure. Patient had history of stroke 4 months back and was in rehab patient has been having progressive lower extremity edema for few days. Patient was advised to increase his Lasix from 20 to 40 mg and blood work was done which showed BNP 6214 and was advised to go to the ED. In [place] ED chest x-ray showed pulmonary vascular congestion [...] -- 0 (more content not included)... [facility] 05-16-2025 Note Cardiothoracic Surge ry Progress Note 05/16/2025 Room: [address] [place] [address] Subjective Nadir Beth is a 85 y.o. [...] (TTE) limited Result Date: 05/15/2025 1 1 [facility] Heart Station [address] [place] [address] [phone] (fax) Echocardiogram-[facility] Name: NADIR BETH Study Date: 05/15/2025 12:46 PM B/P: 171 mmHg/100 mmHg HR: 87 bpm Date of : 1940 Location: [facility] Height: 72 in. Age: 85 (more content not included)... [facility] 05-15-2025 Note Name: Nadir Osullivan nathaniel Date of : 1940 Today's Date: 05/15/25 Pt is unable to be seen for Physical Therapy at this time secondary to: per RN, pt currently off floor for TAVR. Will check back and complete therapy session as appropriate. Check No Charge Time attempted: 1515 [facility] 05-15-2025 Note Occupational Therapy Name: Nadir Beth Date of : 1940 Today's Date: 05/15/25 Pt is unable to be seen for therapy at this time secondary to Pt is off unit for TAVR. Will check back and complete therapy session as appropriate. Check No Charge Time attempted: 1501 [facility] 05-15-2025 Note Not sure baseline ki dney function, creatinine today 1.61 Will decrease Lasix to 40 mg daily [facility] 05-15-2025 Note Acute on chronic hea [...] CABG/AVR specially with history of CVA [facility] 05-15-2025 Note Highest troponin billy t up to 26 Likely combination of chronic kidney disease and CHF [facility] 05-15-2025 Note Continue Zetia [facility] 05-15-2025 Note Continue sliding sca le insulin A1c came back of 9.3 [facility] 05-15-2025 Note Continue current satnam nidine 0.2/3 times daily, hydralazine 25/ 3 times daily and labetalol [facility] 05-15-2025 Note CHADS2 DS vascular s core is 7 currently on Xarelto Patient already on labetalol [facility] 05-15-2025 Note On aspirin and Zetia [facility] 05-15-2025 Note Hospital Medicine Daily Progress Note - 05/15/2025 1:08 PM; Room: [address] [place] [address] Admission: 05/10/2025 2:37 AM; Length of stay: 5 days THE HOSPITALIST TEAM PREFERS TO USE [employer] DTS CHAT FOR NON-URGENT COMMUNICATION 7AM-7PM. IF I DO NOT RESPOND WITHIN 20 MINUTES OR URGENT MATTERS, PLEASE CALL THROUGH THE SALES CONSULTANT RESIDENTIAL MANAGER. FROM 7PM-7AM, PLEASE PAGE [phone](COVR). Code Status: Full Code Barriers to Discharge: [...] mellitus, with long-term current use of insulin ([facility]) Continue sliding scale insulin A1c came back of 9.3 Other hyperlipidemia Continue Zetia Chronic atrial fibrillation ([facility]) CHADS2 DS vascular score is [...] days Lab (more content not included)... [facility] 05-15-2025 Note Cardiology Inpatient Progress Note Subjective Reason for consult: Acute on chronic HFpEF, hypertension urgency, TAVR. HPI: Nadir Beth is a 85 y.o. year old male with significant medical history of A-fib on Xarelto, hypertension, HFpEF, CKD, recent history of CVA 4 months back, renal artery stenosis transferred from [facility] for acute on chronic heart failure. Patient had history of stroke 4 months back and was in rehab patient has been having progressive lower extremity edema for few days. Patient was advised to increase his Lasix from 20 to 40 mg and blood work was done which showed BNP 6214 and was advised to go to the ED. In [place] ED chest x-ray showed pulmonary vascular congestion [...] SpO2 96% (more content not included)... [facility] 05-15-2025 Note Patient: Nadir sullivan Procedure Information Date/Time: 05/15/25 1100 Procedure: TAVR Location: [facility] MANUFACTURER REPRESENTATIVE 3 / [facility] (Cath) Providers: Claribel Cisneros [...] to blood products. 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 [facility] 05-14-2025 Note Patient was admitted to [...] BSN Cardiology Outpatient Coordinator Cardiopulmonary Rehab [facility] 05-14-2025 Note Continue [facility] 05-14-2025 Note On aspirin and [facility] 05-14-2025 Note Acute on chronic hea rt [...] grafting/AVR specially with history of CVA [facility] 05-14-2025 Note Highest troponin billy t up to 26 Likely combination of chronic kidney disease and CHF [facility] 05-14-2025 Note Continue current satnam nidine 0.2/3 times daily, hydralazine 25/ 3 times daily and labetalol [facility] 05-14-2025 Note CHADS2 DS vascular s core is 7 currently on Xarelto Patient already on labetalol [facility] 05-14-2025 Note Not sure baseline ki dney function, creatinine today 1.74 Will decrease Lasix to 40 mg daily [facility] 05-14-2025 Note Continue sliding sca le insulin A1c came back of 9.3 [facility] 05-14-2025 Note Hospital Medicine Daily Progress Note - 05/14/2025 12:11 PM; Room: [address] [place] [address] Admission: 05/10/2025 2:37 AM; Length of stay: 4 days THE HOSPITALIST TEAM PREFERS TO USE [employer] DTS CHAT FOR NON-URGENT COMMUNICATION 7AM-7PM. IF I DO NOT RESPOND WITHIN 20 MINUTES OR URGENT MATTERS, PLEASE CALL THROUGH THE SALES CONSULTANT RESIDENTIAL MANAGER. FROM 7PM-7AM, PLEASE PAGE [phone](COVR). Code Status: Full Code Barriers to Discharge: [...] daily and labetalol Acute congestive heart failure ([facility]) Acute on chronic heart failure [...] mellitus, with long-term current use of insulin ([facility]) Continue sliding scale insulin A1c came back of 9.3 Other hyperlipidemia Continue Zetia Chronic atrial fibrillation ([facility]) CHADS2 DS vascular score is [...] to this (more content not included)... [facility] 05-14-2025 Note Occupational Therapy Occupational Therapy Treatment Patient Name: Nadir Beth : 1940 Today's Date: 05/14/2025 Start Time: 1138 Stop Time: 1223 Time Calculation (min): 44 min OT Therapeutic Procedures Time Entry Therapeutic Activity Time Entry: 10 Therapeutic Exercise Time Entry: 34 Problem List Problem List[1] Pain: Pain Assessment Pain Assessment: No/denies pain Objective General Visit Information: OT Last Visit OT Received On: 05/14/25 General Subjective: Pt was friendly and cooperative Session Comments: Upon arrival marketing writer noted pts male purwick had leaked. [...] Assistance: Contact guard Static Sitting-Comment/Number of Minutes: Casket Coverer noted posterior lean while utilizing B UE's in bathing task. Tactile cues required to marketing writer self Dynamic Sitting Balance Dynamic Sitting [...] Eating meals?: None (Independent) Total Score OT [facility]: 21 Assessment/Plan OT Assessment OT Impairments: Decreased [...] of extended (more content not included)... [facility] 05-14-2025 Note Cardiology Inpatient Progress Note Subjective Reason for consult: Acute on chronic HFpEF, hypertension urgency, TAVR. HPI: Nadir Beth is a 85 y.o. year old male with significant medical history of A-fib on Xarelto, hypertension, HFpEF, CKD, recent history of CVA 4 months back, renal artery stenosis transferred from [facility] [place] [facility] for acute on chronic heart failure. Patient had history of stroke 4 months back and was in rehab patient has been having progressive lower extremity edema for few days. Patient was advised to increase his Lasix from 20 to 40 mg and blood work was done which showed BNP 6214 and was advised to go to the ED. In [place] ED chest x-ray showed pulmonary vascular congestion [...] wheezes, rales (more content not included)... [facility] 05-14-2025 Note discharge planning: return to [facility] 0917 updates sent to [facility], via [employer] system [address]; notice sent to SNF, via [employer] system, with request to confirm bed availability today 1028 SNF has bed today but Discharge Order has been removed for Patient to have TAVR tomorrow; SNF notified via [employer] system discharge barriers: [] no insurance precert needed for SNF, but confirm bed at discharge [] [facility] 05-14-2025 Note STS Scoring for Surg [...] 31.3%, WBC Count: 10.18 10???/?L, Platelet Count: 811063 cells/?L PreOp Medications: Insulin diabetes control Risk Factors / Comorbidities: Insulin-dependent Diabetes Mellitus, Hypertension Vascular RF: Cerebrovascular Disease: CVA <= 30 days Cardiac Status: Chronic heart failure, Ejection Fraction = 50% Valve Disease: Aortic Stenosis, Mild AR, Mild MR Arrhythmia: Recent A-fib, Paroxysmal [facility] 05-13-2025 Note Highest troponin billy t up to 26 Likely combination of chronic kidney disease and CHF [facility] 05-13-2025 Note Not sure baseline ki dney function, creatinine today 1.65 [facility] 05-13-2025 Note CHADS2 DS vascular s core is 7 currently on Xarelto Patient already on labetalol [facility] 05-13-2025 Note Continue Zetia [facility] 05-13-2025 Note Acute on chronic hea [...] grafting/AVR specially with history of CVA [facility] 05-13-2025 Note Continue sliding sca le insulin A1c came back of 9.3 [facility] 05-13-2025 Note Continue current satnam nidine 0.2 3 times daily, hydralazine 25 3 times daily and labetalol [facility] 05-13-2025 Note On aspirin and Zetia [facility] 05-13-2025 Note Hospital Medicine Daily Progress Note - 05/13/2025 10:51 AM; Room: [address] [place] [address] Admission: 05/10/2025 2:37 AM; Length of stay: 3 days THE HOSPITALIST TEAM PREFERS TO USE SceneChat FOR NON-URGENT COMMUNICATION 7AM-7PM. IF I DO NOT RESPOND WITHIN 20 MINUTES OR URGENT MATTERS, PLEASE CALL THROUGH THE SALES CONSULTANT RESIDENTIAL MANAGER. FROM 7PM-7AM, PLEASE PAGE [phone](COVR). Code Status: Full Code Barriers to Discharge: [...] daily and labetalol Acute congestive heart failure ([facility]) Acute on chronic heart failure [...] mellitus, with long-term current use of insulin ([facility]) Continue sliding scale insulin A1c came back of 9.3 Other hyperlipidemia Continue Zetia Chronic atrial fibrillation ([facility]) CHADS2 DS vascular score is [...] 118 05/11/20 (more content not included)... [facility] 05-13-2025 Note Cardiology Inpatient Progress Note Subjective Reason for consult: Acute on chronic HFpEF, hypertension urgency HPI: Nadirconnie Beth is a 85 y.o. year old male with significant medical history of A-fib on Xarelto, hypertension, HFpEF, CKD, recent history of CVA 4 months back, renal artery stenosis transferred from [facility] [place] [facility] for acute on chronic heart failure. Patient had history of stroke 4 months back and was in rehab patient has been having progressive lower extremity edema for few days. Patient was advised to increase his Lasix from 20 to 40 mg and blood work was done which showed BNP 6214 and was advised to go to the ED. In [place] ED chest x-ray showed pulmonary vascular congestion [...] distension. Bowel (more content not included)... [facility] 05-12-2025 Note CHADS2 DS vascular s core is 7 currently on Xarelto Patient already on labetalol [facility] 05-12-2025 Note Not sure baseline ki dney function, creatinine today 1.63 [facility] 05-12-2025 Note Continue sliding sca le insulin A1c came back of 9.3 [facility] 05-12-2025 Note Highest troponin billy t up to 26 Likely combination of chronic kidney disease and CHF [facility] 05-12-2025 Note Acute on chronic hea [...] grafting/AVR specially with history of CVA [facility] 05-12-2025 Note Continue current satnam nidine 0.2 3 times daily, hydralazine 25 3 times daily and labetalol [facility] 05-12-2025 Note Continue Zetia [facility] 05-12-2025 Note On aspirin and Zetia [facility] 05-12-2025 Note Hospital Medicine Daily Progress Note - 05/12/2025 12:25 PM; Room: [address] [place] [address] Admission: 05/10/2025 2:37 AM; Length of stay: 2 days THE HOSPITALIST TEAM PREFERS TO USE [employer]Chat FOR NON-URGENT COMMUNICATION 7AM-7PM. IF I DO NOT RESPOND WITHIN 20 MINUTES OR URGENT MATTERS, PLEASE CALL THROUGH THE SALES CONSULTANT RESIDENTIAL MANAGER. FROM 7PM-7AM, PLEASE PAGE [phone](COVR). Code Status: Full Code Barriers to Discharge: [...] daily and labetalol Acute congestive heart failure ([facility]) Acute on chronic heart failure [...] mellitus, with long-term current use of insulin ([facility]) Continue sliding scale insulin A1c came back of 9.3 Other hyperlipidemia Continue Zetia Chronic atrial fibrillation ([facility]) CHADS2 DS vascular score is [...] LDL 118 05/11/2025 No results found for: [id number] , IRON , TI (more content not included)... [facility] 05-12-2025 Note Attestation signed by Nicole Reyes MD at 05/12/2025 10:18 PM 05/12/25 By [...] TAVR. Nicole Reyes MD, ScM, MSc Cardiac Account Development Associate Email: [email or web address] Nicole Reyes MD, ScM, MSc Cardiac Account Development Associate Email: [email or web address] Cardiology Progress Note Subjective Patient [...] Bubble Study Result Date: 05/10/2025 1 1 [facility] Heart Station [address] [place] [address] [phone] (fax) Echocardiogram-[facility] Name: NADIR BETH Study Date: 05/10/2025 09:19 AM B/P: 178 mmHg/92 mmHg HR: 104 bpm Date of : 1940 Location: [facility] Height: 72 in. Age: 85 year(s) Patient [...] ml/m2 LVO (more content not included)... [facility] 05-11-2025 Note . No associated orders from this encounter found during lookback period of 72 hours. [facility] 05-11-2025 Note COrders from past 72 hours: Case Request Sales Estimator: Coronary angiography, Right heart cath; Standing Cardiac catheterization; Standing [facility] 05-11-2025 Note Insulin blood sugar check diet A1c came back of 9.3 [facility] 05-11-2025 Note Highest troponin billy t up to 26 Likely combination of chronic kidney disease and CHF [facility] 05-11-2025 Note Not sure baseline ki dney function, creatinine today 1.56, will monitor [facility] 05-11-2025 Note CHADS2 DS vascular s core is 7 currently on Eliquis Patient on heparin drip and plan to switch on Eliquis after procedure Patient already on labetalol [facility] 05-11-2025 Note Continue Zetia [facility] 05-11-2025 Note Acute on chronic hea rt failure with preserved EF BNP of 736 Echo 05/10 showed EF preserved. Moderate AAS and AR, mild MR and TR Patient scheduled for cardiac cath today Lasix 40 IV every 8 hours Continue goal-directed medical therapy Farxiga, labetalol, Aldactone Uptitrate meds after Cardiac cath [facility] 05-11-2025 Note Continue current satnam nidine 0.2 3 times daily, hydralazine 25 3 times daily and labetalol [facility] 05-11-2025 Note On aspirin statin wi th deconditioning and gait abnormality with fall risk PT OT to see him [facility] 05-11-2025 Note Hospital Medicine Daily Progress Note - 05/11/2025 4:14 PM; Room: [address] [place] [address] Admission: 05/10/2025 2:37 AM; Length of stay: 1 days THE HOSPITALIST TEAM PREFERS TO USE SceneChat FOR NON-URGENT COMMUNICATION 7AM-7PM. IF I DO NOT RESPOND WITHIN 20 MINUTES OR URGENT MATTERS, PLEASE CALL THROUGH THE SALES CONSULTANT RESIDENTIAL MANAGER. FROM 7PM-7AM, PLEASE PAGE [phone](COVR). Code Status: Full Code Barriers to Discharge: [...] mellitus, with long-term current use of insulin ([facility]) Insulin blood sugar check diet A1c came back of 9.3 Other hyperlipidemia Continue Zetia Chronic atrial fibrillation ([facility]) CHADS2 DS vascular score is [...] renal artery stent in 2015 VTE Prophylaxis: IV heparin Scheduled Meds aspirin, [...] 3.6 CHLORIDE mmol/L 101 101 CO2 mmol/L BUN mg/dL 31* 28* CREATININE mg/dL 1.56* [...] LDL 118 05/11/2025 No results found for: [id number] , IRON , TIBC , C3 , C4 , SHERRY , CANCA , ASO , PSA , CEA , CA125 , CA199 , AFP , CA153 Imaging Complete Echo (TTE) w/wo Imaging Agent, Strain, 3D, Bubble Study 1 1 [place] [facility] Heart Station [address] [place] [address] [phone] (fax) Echocardiogram-[facility] Name: (more content not included)... [facility] 05-11-2025 Note discharge planning: to return to [facility] updates sent to [facility], via CarePort system discharge barriers: [] no insurance precert needed for any placement from this admission, but confirm bed still available before discharge [] [facility] 05-11-2025 Note CTA CHEST W IV [...] 3 cusped view, anterior view, and no HEAD STRENGTH AND CONDITIONING COACH-CAU view are saved in 3-D volume rendered [...] mm Electronically signed: Yenni Stafford MD. [facility] Comment on above: Order Comment: Patie nt had pre procedure medications already for cath 05-11-2025 Note Attestation signed by Azeem Green MD at 05/11/2025 4:45 PM I personally saw and examined the patient on rounds and agree with the assessment and plan of the medical records specialist Cardiology Progress Note Subjective Patient was examined [...] Bubble Study Result Date: 05/10/2025 1 1 [facility] Heart Station [address] [place] [address] [phone] (fax) Echocardiogram-[facility] Name: NADIR BETH Study Date: 05/10/2025 09:19 AM B/P: 178 mmHg/92 mmHg HR: 104 bpm Date of : 1940 Location: [facility] Height: 72 in. Age: 85 year(s) Patient [...] left atr (more content not included)... [facility] 05-11-2025 Note Physical Therapy Physical Therapy [...] approved PT session and OOB activity this . In bed upon arrival, agreeable to session. 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 [facility] 05-11-2025 Note Patient: Nadir sullivan Procedure Information Date/Time: 05/11/25 1130 Procedures: Coronary angiography Right heart cath Location: [facility] MANUFACTURER REPRESENTATIVE 3 / [facility] (Cath) Providers: Aissatou Hughes [...] to blood products. Additional Equipment Requests [facility] 05-10-2025 Note Attestation signed by Landen Rice PT at 05/10/2025 3:50 PM This marketing writer (PT) provided one-on-one supervision, direction of [...] an 85 y/o male admitted 05/10/25 from [facility] [place] [facility] where he presented following outpatient labs [...] Intact General Assessment General Assessment Hearing: mild RED CLIFF Hand Dominance: Right Home Living Home Living [...] Level of Function Prior Function Level of [place]: Independent with ADLs and functional transfers, Independent [...] and assist in initiation/anterior weight shift. Patient shannan dial LE strength req (more content not included)... [facility] 05-10-2025 Note 05/10/25 1520 Admission Assessment [...] back? Yes Pharmacy Bedside Delivery Status Interested ([facility] in [facility]) Does the patient have a watch case polisher assigned to them through their insurance? No Living Arrangement (Current/Prior to Hospitalization) Private residence;Inpatient rehab facility (2 story house w/ 5 steps. Lives with his and she is able to help after discharge as needed. Came to us from [facility] x 3 weeks / Bedhold.) Does the patient have history of HHC or SNF? Yes (Hx HHC et Current SNF.) Assistive Device Walker;Wheelchair (@ [facility]. Walker at home.) Patient's goal for discharge [facility] Was patient reminded that goal for [...] patient's family members at his bedside. [facility] 05-10-2025 Note Occupational Therapy Occupational Therapy [...] Intact General Assessment General Assessment Hearing: (mild chemehuevi) Hand Dominance: Right Home Living Home Living Type of Home: House Lives With: Spouse Home Adaptive Equipment: Walker rolling, Cane (sc, gb, hhs) Home Layout: One level Home Access: Stairs to enter with rails (5) Bathroom Shower/Tub: Tub/shower unit Prior Level of Function Prior Function Level of [place]: Independent with ADLs and functional transfers, Independent [...] Eating meals?: None (Independent) Total Score OT [facility]: 21 Assessment/Plan OT Assessment OT Impairments: Decreased [...] of insu (more content not included)... [facility] 05-10-2025 Note Daily Case Managemen t Update Barriers to Discharge et per Progress Note: Transfer from [facility] [place] [facility] for elevated BNP et BLE Edema. [...] Question: Reason for OT? Answer: gait abnormality 05/10/251 [facility] 05-10-2025 Note Per review of chart patient has diastolic heart failure had history of pericardial effusion as well we will optimize guideline directed medical therapy with limitation due to renal insufficiency obtain echocardiogram cycle troponins cardiology to see him [facility] 05-10-2025 Note Insulin blood sugar check diet [facility] 05-10-2025 Note Antilipemic agents diet [facility] 05-10-2025 Note On aspirin statin wi th deconditioning and gait abnormality with fall risk PT OT to see him [facility] 05-10-2025 Note Adjust antihypertens ella low-salt diet with renal insufficiency unable to start JAY or ARB [facility] 05-10-2025 Note CHADS2 DS vascular s core is 7 currently on Eliquis Chronic kidney disease stage IIIb avoid nephrotoxic meds hypovolemia nephrology consult [facility] 05-10-2025 Note Hospital Medicine History and Physical 05/10/2025 4:12 AM THE HOSPITALIST TEAM PREFERS TO USE [employer] DTS CHAT FOR NON-URGENT COMMUNICATION 7AM-7PM. IF I DO NOT RESPOND WITHIN 20 MINUTES OR URGENT MATTERS, PLEASE CALL THROUGH THE SALES CONSULTANT RESIDENTIAL MANAGER. FROM 7PM-7AM, PLEASE PAGE [phone](COVR). Chief Complaint No chief complaint on file. History of Present Illness Nadir Turner is an 85 y.o. male admitted as a direct transfer from [facility] [place] [facility] where he presented following outpatient labs [...] pulses. Heart sounds: Normal heart sounds. Comments: [id number] s4 systolic murmur Pulmonary: Effort: Pulmonary effort [...] mellitus, with long-term current use of insulin ([facility]) Insulin blood sugar check diet Other hyperlipidemia Antilipemic agents diet Chronic atrial fibrillation ([facility]) CHADS2 DS vascular score is [...] this hospital stay by a member of [facility] Medicine. Past Medical History Medical History[1] [...] Cigarettes S (more content not included)... [facility] 05-08-2025 History of Present illness Narrative [...] titration study Managed by Dr John in [place] Associated Problem(s): Carotid stenosis, bilateral Plan redo US carotids 2026. Associated Problem(s): Polyneuropathy (Continue current regimen.) Images from the original note were not included. Outpatient Progress Note Prev Appt: Visit date not found No chief complaint on file. Appointment Note -- FU ([facility]) Patient is here today [...] titration study Managed by Dr John in [place] Carotid stenosis, bilateral Plan redo US carotids 2026. Polyneuropathy (Continue current regimen.) No orders of the defined types were placed in this encounter. Follow-Up - No follow-ups on file. History of Present Illness, Associated Treatments and Results - Dx ([facility]) Tx OFF BiPAP @ 31/10 AEs Hx [facility] - [facility] Failed Semeiology Circadian Noct oxim PSG _ ([facility]) - _ PAPT ([facility]) - AHI=8.1 @ 31/10 (max pressure) MSLT [...] UBOs Tx ASA AEs Hx Recent adm [facility] for confusion. Now baseline. Images rev'd. No clear cognitive decline. Denies forgetting names, leaving tools/stove on, getting lost, etc. Onset Semeiology Imaging MR brain (02/2025, [facility]) - rev'd with pt - no report sent - on my review, atrophy mod-sev, 8-10 UBOs, most tiny, 2 mod incl R fro & R splenium CC MRA head (02/2025, [facility]) - no stenoses MRA neck (02/2025, [facility]) - no stenoses, dom R vert US carotids (02/2025, [facility]) - < 50% B by velocity, but mod plaque poss causing stenosis Testing Surgery Failed Dx L BASAL GANGLIA STROKE/WMD/ATROPHY Tx (Continue ASA, Xeralto ?, statin.) AEs Hx Onset 92440 AMS and garbled speech Semeiology To [facility]. CT and MRI showed stroke ? Subacute. Eliquis changed to Xeralto. DC to [facility] for Skilled therapy. Imaging CT Head (04/2025 [facility]) 8mm hypodensity in left caudate nucleus MRI Brain (04/2025 [facility]) Subacute left basal ganglia ischemia, mild WMD, moderate atrophy CTA H/N (04/2025 [facility]) 50% ICA stenosis B. Moderate M1 right MCA stenosis Testing Echo (04/2025 [facility]) EF 65-70%, Aortic sclerosis, [...] of 05/08/2025. [facility] ? [address] ? [place], [place] [address] ? ? fax Neurology ? Clinical Neurophysiology ? Epilepsy ? Sleep Disorders ? Clinical Informatics documented in this encounter [facility] 04-30-2025 Note [place] [facility] - [facility] Subjective Nadir Beth is a 85 y.o. year old male patient being seen for follow up CVA. Patient was in [place] [place] for 4 days. Patient complains of HERNANDEZ and leg swelling, high blood sugars. Patient is at the [facility] for rehab. Patient Active Problem List Diagnosis [...] diuretic therapy. He was admitted to the [facility] [place] [facility] in August 2022 due to hyponatremia, hyperkalemia and acute kidney injury, leukocytosis secondary to COVID-19 causing dehydration. I saw him on 05/24/2023 and the office and he had significant evidence of volume overload by exam and echocardiogram. I intensified his diuretic regimen. He ended up getting admitted to the [facility] [place] [facility] with acute heart failure exacerbation and [...] On 02/14/2025 he was admitted to the [facility] [place] [facility] with altered mental status. brain MRI showed multiple infarcts. He was seen by cardiology consult and Eliquis was changed to Xarelto. He then underwent a transesophageal echocardiogram that showed no evidence of intra cardiac thrombi. The aortic valve stenosis appeared to be severe. He was seen in the emergency room at the [facility] [place] [facility] on 03/08/2025 with chest pain episode. He ruled out for myocardial infarction and was discharged. I last saw him on 03/12/2025 and decided to proceed with cardiac catheterization as part of his workup for aortic valve replacement. The procedure is scheduled for May 10, 2025. However in the interim he was admitted on 04/14/2025 to [facility] with apparent acute cerebrovascular accident. MRI showed possible small acute/subacute infarct. The clinical presentation was that of inability to speak. Relatively quickly. He was discharged back to rehab at the [facility] (more content not included)... [facility] 04-30-2025 Note Discharge Summary Admission and Discharge Information Admit Date/Time:04/14/2025 19:37 Admitting Physician - Layne VERDUGO DO Consulting Physician - [facility] Wound, XXXX Admitting Diagnoses: [...] at discharge. Patient was accepted to the [facility] which patient will transfer there today [...] Discharge Disposition Discharge To, Anticipated II - [facility] Discharged to - Other: [facility] Discharge Diet Discharge Diet(s): Calorie Controlled- 1800 [...] Flomax, 0.4 m (more content not included)... [facility] Comment on above: Result Comment: Elec [...] sclera clear E (more content not included)... [facility] Comment on above: Result Comment: Elec [...] Locations R1: This test was performed at: [facility], [address] [place] [address], [id number] [place] [address], [phone] [address] Comment on above: Performed By: #### 1 [id number] #### [facility] [address] [place] [id number] 04-22-2025 Note Microbiology PROCEDURE: Blood Culture Charcoal [R1] SOURCE: Blood BODY SITE: Hand R COLLECTED DATE/TIME: 04/14/2025 18:04 EDT RECEIVED DATE/TIME: 04/14/2025 18:41 EDT START DATE/TIME: 04/14/2025 18:41 EDT FREE TEXT SOURCE: Indu Slaughter, Rivas Griggs M.D., [place]ivas [place] FINAL REPORTS Final Report [] Verified Date/Time: 04/21/2025 21:00 EDT No growth at 7 days. Performing Locations R1: This [facility] performed at: [facility], [address] [place] [address], [id number] [place] [address], [phone] [address] Comment on above: Performed By: #### 1 [id number] #### [facility] [address] [place] [id number] 04-21-2025 Note Microbiology PROCEDURE: Blood Culture Charcoal [R1] SOURCE: Blood BODY SITE: Hand L COLLECTED DATE/TIME: 04/14/2025 18:05 EDT RECEIVED DATE/TIME: 04/14/2025 18:40 EDT START DATE/TIME: 04/14/2025 18:40 EDT FREE TEXT SOURCE: Peripheral vein site #2 Indu Slaughter, Rivas Griggs M.D., Astrshelbie Hill FINAL REPORTS Final Report [] Verified Date/Time: 04/21/2025 21:00 EDT No growth at 7 days. Performing Locations R1: This test was performed at: [facility], [address] [place] [address], [address] [place] [address], [phone] [address] Comment on above: Performed By: #### 1 [id number] #### [facility] [address] [place] [id number] 04-21-2025 Note Microbiology PROCEDURE: Blood Culture Charcoal [R1] SOURCE: Blood BODY SITE: Hand R COLLECTED DATE/TIME: 04/14/2025 18:04 EDT RECEIVED DATE/TIME: 04/14/2025 18:41 EDT START DATE/TIME: 04/14/2025 18:41 EDT FREE TEXT SOURCE: Peripheral vein site #1 Indu Slaughter, Astrit H Indu Slaughter, Astrit H FINAL REPORTS Final Report [] Verified Date/Time: 04/21/2025 21:00 EDT No growth at 7 days. Performing Locations R1: This test was performed at: [facility], [address] [place] [address], [id number]- , , [facility] Comment on above: Performed By: #### 1 [id number] #### [facility] [address] [place] [id number] 04-18-2025 Note GetWell Understands Education Yes GetWell Education Video Statins: Should You Take Them to Lower Your Risk? GetWell Learning Participants Patient [facility] 04-18-2025 Note GetWell Education Vi maria guadalupe After a Stroke: Your Self-Care Plan GetWell Learning Participants Patient GetWell Understands Education Yes [facility] 04-18-2025 Note GetWell Understands Education Yes GetWell Education Video After a Stroke: Taking an Antiplatelet GetWell Learning Participants Patient [facility] 04-18-2025 Note GetWell Education Vi maria guadalupe After a Stroke: Taking an Antiplatelet GetWell Learning Participants Patient GetWell Understands Education Yes [facility] 04-18-2025 Note GetWell Understands Education Yes GetWell Education Video Your Hospital Stay: Moving to Another Care Facility GetWell Learning Participants Patient [facility] 04-18-2025 Note GetWell Understands Education GetWell Education Video Stroke: Fast facts GetWell Learning Participants [facility] 04-18-2025 Note GetWell Understands Education GetWell Education Video Stroke: Fast facts GetWell Learning Participants [facility] 04-18-2025 Note GetWell Understands Education Yes GetWell Education Video After a Hospital Stay: Managing Appointments GetWell Learning Participants Patient [facility] 04-18-2025 Note GetWell Understands Education Yes GetWell Education Video Preventing Falls in the Hospital GetWell Learning Participants Patient [facility] 04-18-2025 Note GetWell Understands Education Yes GetWell Education Video Avoiding Infections in the Hospital GetWell Learning Participants Patient [facility] 04-18-2025 Note GetWell Learning Par ticipants Patient GetWell Understands Education Yes GetWell Education Video What Is a Stroke? [facility] 04-17-2025 Evaluation + Plan note Extrac [...] today patient is pending cardiac cath at [facility] towards the end of this month for [...] and embolism) Xarelto Extracted from: Title:APSO Note-neurology Author:Joni OTERO, Nadir knott Date:04/17/25 ASSESSMENT: Acute to subacute embolic ischemic [...] Other constipation) Extracted from: Title:Progress/SOAP Note Author:Hanna GUSTAFSON [facility] zach Date:04/16/25 1. CVA (cerebrovascular acci dent) (I63.9: [...] deep vein thrombosis (DVT) prophylaxis (Z79.899: Other buttermaker (current) drug therapy) 11. History of DVT [...] deep vein thrombosis (DVT) prophylaxis (Z79.899: Other buttermaker (current) drug therapy) Resume Xarelto 11. History [...] deep vein thrombosis (DVT) prophylaxis (Z79.899: Other buttermaker (current) drug therapy) 11. History of DVT [...] deep vein thrombosis (DVT) prophylaxis (Z79.899: Other buttermaker (current) drug therapy) 10. History of DVT [...] prophylaxis (Z79.899: Other intermediate (current) drug therapy) Other obstructive and reflux uropathy (N13.8: Other obstructive and reflux uropathy) Pleural effusion (J90: Pleural effusion, not elsewhere classified) Extracted from: Title:Admission H & P Author:Layne VERDUGO DO Date:04/14/25 1. CVA (cerebrovascular acci dent) (I63.9: Cerebral infarction, unspecified) Interventional neurology was consulted from the emergency department at [facility]. They recommended patient started on a [...] erythema or exudate. - POA. will consult [facility]. bacitracin bid. Extracted from: Title:ED Note Author:Rivas Griggs M.D. te:04/14/25 1. CVA (cerebrovascular acci dent) (I63.9: [...] Date:06/11/2025 11:40:00 AM Scheduled Provider:LU OLMEDO PA-C Location:[facility] Appointment Type:URO Office Visit [facility] 06-03-2025 NoteProgress Note-Physician Assessment/Plan PLAN: 1. CVA [...] today patient is pending cardiac cath at [facility] towards the end of this month for [...] deep vein thrombosis (DVT) prophylaxis (Z79.899: Other buttermaker (current) drug therapy) Resume Xarelto 11. History [...] Lymph Auto: 7.1 % Low (04/17/25 06:01:00) Mccook Auto: 13.7 % (04/17/25 06:01:00) Eos Auto: 0.6 % (04/17/25 06:01:00) Basophil Auto: 0.6 % (04/17/25 06:01:00) Neutro Absolute: 7.7 E9/L High (04/17/25 06:01:00) Lymph Absolute: 0.7 E9/L Low (04/17/25 06:01:00) Mccook Absolute: 1.4 E9/L High (06 (more content not included)...[facility]Result Comment: Electronically Signed By: Anai URIARTE\.br\Date and Time Signed: 04/17/25 08:59 EDT\.br\Electronically Co-Signed By: Marc Fajardo DO\.br\Date and Time Co- Signed: 04/17/25 13:29 [id number] NoteProgress Note-Physician Assessment/Plan ASSESSMENT: Acute to subacute [...] intact. CEREBELLAR: No limb ataxia. [1] Date/Time:04/17/25 09 Level of Consciousness: Alert = 0 Current month and age: Answers both correctly = 0 Open and close eyes/manager product support release hand: Obeys both correctly = 0 [...] MPV: 9.1 fL (04/17/ (more content not included)...[facility] Comment on above:Result Comment: Electronically Signed By: Pati Quinones RN\.br\Date and Time Signed: 04/17/25 09:21 EDT\.br\Electronically Co- Signed By: Ruy Molina DO\.br\Date and Time Co-Signed: 04/17/25 10:46 EDT 04-16-2025 NoteProgress Note-Physician Subjective Patient off floor for MRI. I did discuss the echo findings with the patient family. Patient family was advised to follow-up with his outpatient treating audio visual project manager. Patient audio visual project manager showed be able to get access to [...] Lymph Auto: 4.6 % Low (04/16/25 06:05:00) Mccook Auto: 10.8 % (04/16/25 06:05:00) Eos Auto: 0.2 % (04/16/25 06:05:00) Basophil Auto: 0.1 % (04/16/25 06:05:00) Neutro Absolute: 12.3 E9/L High (04/16/25 06:05:00) Lymph Absolute: 0.7 E9/L Low (04/16/25 06:05:00) Mccook Absolute: 1.6 E9/L High (04/16/25 06:05:00) Eos [...] mg/dL High (04/16/25 11:23:00) POC Device SN: [id number] (04/16/25 11:23:00) POC User ID: [id number] (04/16/25 11:23:00) POC Username: WICHO NORRIS (04/16/25 [...] deep vein thrombosis (DVT) prophylaxis (Z79.899: Other buttermaker (current) drug therapy) 11. History of DVT [...] loratadine 10 mg Tab, (more content not included)...[facility] Comment on above:Result Comment: Electronically Signed By: Hanna GUSTAFSON, Rebeca\.br\Date and Time Signed: 04/16/25 12:15 [id number] NoteProgress Note-Physician Assessment/Plan PLAN: 1. CVA (cerebrovascular [...] deep vein thrombosis (DVT) prophylaxis (Z79.899: Other buttermaker (current) drug therapy) Resume Xarelto 11. History [...] Lymph Auto: 4.6 % Low (04/16/25 06:05:00) Mccook Auto: 10.8 % (04/16/25 06:05:00) Eos Auto: 0.2 % (04/16/25 06:05:00) Basophil Auto: 0.1 % (04/16/25 06:05:00) Neutro Absolute: 12.3 E9/L High (04/16/25 06:05:00) Lymph Absolute: 0.7 E9/L Low (04/16/25 06:05:00) M[place]ook Absolute: 1.6 E9/L High (04/16/25 06:05:00) Eos Absolute: 0 E9/L (04/16/25 06:05:00) Basophil Absolute: 0 E9/L (04/16/25 06:05:00) Glucose Lvl: 212 mg/dL High (04/16/25 06:05:00) BUN: 33 mg/dL High (04/16/25 06:05:00) Creatinine: 1.7 mg/dL High (04/16/25 06:05:00) eGFR: 39 mL/min/1.73 (more content not included)...[facility] Comment on above:Result Comment: Electronically Signed [...] be managed by a specialist called an vat cleaner. Type 2 diabetes may be treated by [...] meet with a certified diabetes care and outreach and education social worker? What diabetes medicines do I need, and when should I take them? What equipment will I need to manage my diabetes at home? How often do I need to check my blood glucose? Where can I find a support group for people with diabetes? What number can I call if I have questions? When is my next appointment? General instructions Take vuhm-uvg-owfehfl and prescription medicines only as told by your health care provider. Keep all follow-up visits. This is important. Where to find more information For help and guidance and for more information about diabetes, please visit: [place] Diabetes Association (ADA): www.diabetes.org [place] [employer] of Diabetes Care and Education Specialists [...] provider. Document Revised: 01/26/2022 Document Reviewed: 01/26/2022 [employer] Patient Education 2023 [employer]. 04/16/2025 09:29:43 Atrial Fibrillation Atrial Fibrillation Atrial [...] electrical signals of the heart. An ambulatory awake overnight monitor to record your heart's activity for [...] provider. Document Revised: 07/21/2023 Document Reviewed: 07/21/2023 [employer] Patient Education 2023 [employer] 04/16/2025 09:29:43 Core Measures: Stroke (Cerebrovascular Accident) [facility], (Custom) Stroke (Cerebrovascular Accident) [...] factors for stroke, work with your health medicare nurse to control them. High Blood Pressure: [...] Please call [facility] Smoking Cessation Program at [phone] ([facility]), or [phone], ext. [phone] Diabetes: Work with your healthcare professional to [...] cholesterol diet, you can call our [facility] pit and auxiliaries supervisor at [phone] Ext. [phone]. The goal for total cholesterol is less [...] your risk of stroke with your health medicare nurse. TREATMENT TIME IS OF THE ESSENCE! [...] Measures will be takento prevent short and buttermaker complications, including aspiration pneumonia, blood clots in [...] for more information on strokes, log onto www.[facility].com or www.strokeassociation.org or call the [place] [employer] at . Revised 11/2018 Follow Up Care 04/14/2025 16:54:01 With:Neurology Address: [phone] When:2 to 4 weeks Comments:Call for followup appointment [facility] 06-02-2025 NoteEchocardiology Procedure Exam Date/Time Accession # Ordering Echo Transthoracic 04/16/2025 10:06 EDT [id number] PEPE AGSANDRAVANESSAFelton CPT code 01979 11741 Reason for Exam (Echo Transthoracic Complete) CVA Report [facility] [address] [place] [address] Adult Echocardiogram Report Name: NADIR BETH Study Date: 04/16/2025 09:15 AM BP: 172/80 mmHg Patient Location: 2N [id number] 01 [facility] Bed(s) [facility] HR: 94 : 1940 [...] Ferreira MD Transcribed by: ROBER Technologist: [facility]06-02-2025 Note Progress Note-Physician Assessment/Plan ASSESSMENT: [...] Both incorrect = 1 Open and close eyes/manager product support release hand: Obeys both correctly = 0 [...] Lymph Auto: 4.6 % Low (04/16/25 06:05:00) Mccook Auto: 10.8 % (04/16/25 06:05:00) Eos Auto: 0.2 % (04/16/25 06:05:00) Basophil Auto: 0.1 % (04/16/25 06:05:00) Neutro Absolute: 12.3 E9/L High (04/16/25 06:05:00) Lymph Absolut (more content not included)...[facility]Result Comment: Electronically Signed By: Tonny OTERO, Preethi Marroquin\.br\Date and Time Signed: 04/16/25 07:32 EDT\.br\Electronically Co-Signed By: Ruy Molina DO\.br\Date and Time Co-Signed: 04/16/25 09:47 [id number] Note Interdisciplinary Note - PT PT Evaluation done this date. Pt. with on AM-PAC this date. Min Ax1 and FWW with all activityfor safety. Recommend SNF at this time, will continue to follow.[facility]06-01-2025 NoteInterdisciplinary Note - PT PT evaluation order received. Pt has an MRI still pending and as per nursing should be on hold for today. Will attempt tomorrow.[facility] 04-15-2025 NoteConsultation Note Chief Complaint AMS History of Present Illness Patient is an 85-year-old male with past medical history as noted below comes in with above-stated chief complaint. Patient was at his baseline state of health until the afternoon of 04/14/2025. At approximately 1500 patient came to have altered mental status which prompted to call [facility]. Patient had complained of a severe headache [...] Patient's daughter Valerie is healthcare power of environmental attorney. She was on the phone. She states that for the time being she would like patient to be a full code. She will discuss this with her family and notify us if she makes any changes. Family does note that patient was admitted for a stroke at [facility] about 6 weeks ago. They state [...] is obtained. He does follow-up with outpatient audio visual project manager. Review of Systems As per HPI Physical [...] prophylaxis (Z79.899: Other intermediate (current) drug therapy) 10. History of DVT [...] hernia repair, Tonsillectomy. Medications (more content not included)...[facility]:Result Comment: Electronically Signed By: Hanna GUSTAFSON, Rebeca\.mary\Date and Time Signed: 04/15/25 09:39 [id number] NoteConsultation Note Chief Complaint AMS Reason for [...] was admitted for stroke workup at the [facility] [place] [facility] about a month and a half [...] Both incorrect = 2 Open and close eyes/manager product support release hand: Obeys both correctly = 0 [...] 9. DM2 (diabetes elio (more content not included)...[facility] Comment on above:Result Comment: Electronically Signed By: Stephanie Mello RN\.br\Date and Time Signed: 04/15/25 06:55EDT\.br\Electronically Co-Signed By: Ruy Molina DO\.br\Date and Time Co-Signed: 04/15/25 09:37 [id number] Note History and Physical Basic Information Admit [...] Patient's daughter Valerie is healthcare power of environmental attorney. She was on the phone. She states that for the time being she would like patient to be a full code. She will discuss this with her family and notify us if she makes any changes. Family does note that patient was admitted for a stroke at [facility] [place] [facility] about 6 weeks ago. They state [...] other details. NIH Stroke Scale/Score (NIHSS) from [employer] on 04/14/2025 All calculations should be rechecked [...] Lymph Auto: 7.8 % Low (04/14/25 17:08:00) Mccook Auto: 9.9 % (04/14/25 17:08:00) Eos Auto: 1.5 % (04/14/25 17:08:00) Basophil Auto: 0.8 % (04/14/25:08:00) Neutro Absolute: 6.5 E9/L (04/14/25 17:08:00) Lymph Absolute: 0.6 E9/L Low (04/14/25 17:08:00) M[place]ook Absolute: 0.8 E9/L (04/14/25 17:08:00) Eos Absolute: 0.1 E9/L (04/14/25 17:08:00) Basophil Absolute: 0.1 E9/L (04/14/25 17:08:00) PT: 11 second(s) (04/14/25 17:08:00) INR: 0.98 (04/14/25 17:08:00) PTT: 33.3 second(s) (04/14/25 17:08:00) Glucose Lvl: 245 mg/dL High (04/14/25 17:08:00) BUN: 28 mg/dL High (04/14/25 17:08:00) Creatinine: 1.8 mg/dL High (04/14/25 17:08:00) eGFR: 36 mL (more content not included)...[facility]:Result Comment: Electronically Signed By: Layne VERDUGO DO\Date and Time Signed: 04/15/25 02:30 [id number] NoteHistory and Physical Basic Information Admit Date/Time:04/14/2025 [...] Patient's daughter Valerie is healthcare power of environmental attorney. She was on the phone. She states that for the time being she would like patient to be a full code. She will discuss this with her family and notify us if she makes any changes. Family does note that patient was admitted for a stroke at [facility] about 6 weeks ago. They state [...] other details. NIH Stroke Scale/Score (NIHSS) from [employer] on 04/14/2025 All calculations should be rechecked [...] dysphasia 11: Extinction/inattention ???> 2 = Profound cramen-inattention (ex: does not recognize own hand) Psychiatric: [...] Lymph Auto: 7.8 % Low (04/14/25 17:08:00) Mccook Auto: 9.9 % (04/14/25 17:08:00) Eos Auto: 1.5 % (04/14/25 17:08:00) Basophil Auto: 0.8 % (04/14/25:08:00) Neutro Absolute: 6.5 E9/L (04/14/25 17:08:00) Lymph Absolute: 0.6 E9/L Low (04/14/25:08:00) M[place]ook Absolute: 0.8 E9/L (04/14/25 17:08:00) Eos Absolute: 0.1 E9/L (04/14/25:08:00) Basophil Absolute: 0.1 E9/L (04/14/25 17:08:00) PT: 11 second(s) (04/14/25 17:08:00) INR: 0.98 (04/14/25 17:08:00) PTT: 33.3 second(s) (04/14/25 17:08:00) Glucose Lvl: 245 mg/dL High (04/14/25 17:08:00) BUN: 28 mg/dL High (04/14/25 17:08:00) Creatinine: 1.8 mg/dL High (04/14/25 17:08:00) eGFR: 36 mL (more content not included)...[facility]:Result Comment: Electronically Signed By: Layne VERDUGO DO\Date and Time Signed: 04/14/25 22:32 [id number] History of Present illness Narrative* Blaise Chicas, LUIS E - 04/12/2025 11:20 AM EDT Patient: Nadir Beth : 1940 PCP: Van Youssef MD SUBJECTIVE Nadir Palacionereida 85 y.o. presents today for follow up [...] Partner Violence: Unknown (01/06/2024) Received from [facility] Fear of Current or [...] and negative PT pedal pulses NEURO: 5.07 Beattie Sheldon monofilament test diminished to digits and forefoot bilaterally 125Hz tuning fork diminished to 1st MPJ bilaterally ORTHO: Positive pain on palpation to nails 1 through 10 Minimal pain on palpation of right foot lesion ASSESSMENT 1. Verruca plantaris 2. Foot pain, right 3. Diabetes mellitus due to underlying condition with diabetic polyneuropathy, unspecified whether buttermaker insulin use ([facility]) 4. Pain due to onychomycosis of [...] Blaise Chicas DPM documented in this encounterSaint John's Regional Health [id number] History of Present illness Narrative* Barrie Montoya [...] in about 6 months (around 10/11/2025), or PET GROOMER. History of Present Illness, Associated Treatments and Results - Dx (JOSIAH) Tx BiPAP @ 31/10 AEs Hx [facility] Failed Semeiology Circadian Noct oxim PSG _ ([facility]) - _ PAPT ([facility]) - AHI=8.1 @ 31/10 (max pressure) MSLT [...] UBOs Tx ASA AEs Hx Recent adm [facility] for confusion. Now baseline. Images rev'd. No clear cognitive decline. Denies forgetting names, leaving tools/stove on, getting lost, etc. Onset Semeiology Imaging MR brain (02/2025, [facility]) - rev'd with pt - no report sent - on my review, atrophy mod-sev, 8-10 UBOs, most tiny, 2 mod incl R fro & R splenium CC MRA head (02/2025, [facility]) - no stenoses MRA neck (02/2025, [facility]) - no stenoses, dom R vert US carotids (02/2025, [facility]) - < 50% B by velocity, but [...] ? [address] ? [place], [place] [address] ? ? fax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 Appointments Appointment Date:11/06/2024 09:00:00 AM Scheduled Provider: Location:[facility] Appointment Type:URO Nurse Visit Appointment Date:12/04/2024 08:40:00 AM Scheduled Provider:MARQUIS LOUISE MD Location:[facility] Appointment Type:URO Office Visit Future Scheduled Tests Laboratory* CBC w/ Auto Diff 10/01/23 * Comprehensive Metabolic Panel 10/01/23 * Thyroid Stimulating Hormone 10/01/23 [facility] Evaluation + Plan note Future Appointments Appointment Date:12/04/2024 08:40:00 AM Scheduled Provider:MARQUIS LOUISE MD Location:[facility] Appointment Type:URO Office Visit Future Scheduled Tests Laboratory* CBC w/ Auto Diff 10/01/23 * Comprehensive Metabolic Panel 10/01/23 * Thyroid Stimulating Hormone 10/01/23 [facility] evaluation + Plan note Future Appointments Appointment Date:06/11/2025 11:40:00 AM Scheduled Provider:LU OLMEDO PA-C Location:[facility] Appointment Type:URO Office Visit Future Scheduled Tests Laboratory* CBC w/ Auto Diff 10/01/23 * Comprehensive Metabolic Panel 10/01/23 * Thyroid Stimulating Hormone 10/01/23 [facility] Evaluation + Plan note Future Appointments Appointment Date:03/04/2026 09:00:00 AM Scheduled Provider:MARQUIS LOUISE MD Location:[facility] Appointment Type:URO Office Visit [facility] evaluation note* Diagnosis Melanocytic nevus of [...] of both feet documented in this encounter [facility]* Diagnosis Xerosis cutis- Primary Other specified disease of sebaceous glands Verruca plantaris Plantar wart Foot pain, right Pain in soft tissues of limb Diabetes mellitus due to underlying condition with diabetic polyneuropathy, unspecified whether buttermaker insulin use (CMS/HCC) Onychomycosis Dermatophytosis of nail Toe pain, bilateral documented in this encounter [facility] HealthcareEvaluation note* Diagnosis Verruca plantaris- Primary Plantar wart Foot pain, right Pain in soft tissues of limb Xerosis cutis Other specified disease of sebaceous glands documented in this encounter [facility]* Diagnosis Neurogenic pain- Primary Benign essential tremor Essential and other specified forms of tremor documented in this encounter [facility] note* Diagnosis Benign essential tremor- [...] of both feet documented in this encounter [facility]* Diagnosis Benign essential tremor- [...] peripheral neuropathy documented in this encounter [facility]* [...] Polyneuropathy Unspecified hereditary and idiopathic peripheral neuropathy Verruca plantaris- Primary Plantar wart Foot pain, right Pain in soft tissues of limb Diabetes mellitus due to underlying condition with diabetic polyneuropathy, unspecified whether buttermaker insulin use (HCC) Pain due to onychomycosis of toenails of both feet documented in this encounter [facility] Healthcare[facility]* Diagnosis Benign essential tremor- [...] Polyneuropathy Unspecified hereditary and idiopathic peripheral neuropathy Tremor- Primary Abnormal involuntary movements Neurogenic pain Carotid stenosis, bilateral Occlusion and stenosis of carotid artery without mention of cerebral infarction 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 JOSIAH (obstructive sleep apnea) Obstructive sleep apnea (adult) (pediatric) Cervical paraspinal muscle spasm Spasm of muscle B12 deficiency documented in this encounter [facility] [...] Narrative No data available for this section [facility] Discharge instructions No data available for this section [facility] No data available for this section [facility] Summary Purpose Family History No Family History [...] section and content) DATE CREATED AUTHOR 02/09/2019 [facility] DATE CREATED AUTHOR AUTHOR'S ORGANIZ ATION 03/28/2023 [facility] DATE CREATED AUTHOR AUTHOR'S ORGANIZ ATION 04/15/2025 [facility] DATE CREATED AUTHOR AUTHOR'S ORGANIZ ATION 04/16/2025 [facility] DATE CREATED AUTHOR AUTHOR'S ORGANIZ ATION 04/17/2025 [facility] DATE CREATED AUTHOR AUTHOR'S ORGANIZ ATION 04/18/2025 [facility] DATE CREATED AUTHOR AUTHOR'S ORGANIZ ATION 04/19/2025 [facility] DATE CREATED AUTHOR AUTHOR'S ORGANIZ ATION 04/21/2025 [facility] DATE CREATED AUTHOR AUTHOR'S ORGANIZ ATION 04/22/2025 [facility] DATE CREATED AUTHOR AUTHOR'S ORGANIZ ATION 05/23/2025 [facility] DATE CREATED AUTHOR AUTHOR'S ORGANIZ ATION 06/12/2025 [facility] DATE CREATED AUTHOR AUTHOR'S ORGANIZ ATION 06/14/2025 [facility] DATE CREATED AUTHOR AUTHOR'S ORGANIZ ATION 06/19/2025 [facility] DATE CREATED AUTHOR AUTHOR'S ORGANIZ ATION 07/11/2025 [facility] Care Team (unrecognized sect ion and content) [employer] Operator Relationship Specialty Start Date End Date Van Youssef MD [address] [phone] PCP - General Family Medicine 12/02/23 [employer] Operator Relationship Specialty Start Date End Date Van Youssef MD [address] [place] [address] PCP - General Family Medicine 12/02/23 [employer] Operator Relationship Specialty Start Date End Date Van Youssef MD [address] [phone] PCP - General Family Medicine 12/02/23 Ac[employer]ical [employer] Operator Relationship Specialty Start Date End Date Van Youssef MD [address] [phone] PCP - General Family Medicine 12/02/23 Ac[employer]ical [employer]ile [employer] Operator Relationship Specialty Start Date End Date Van Youssef MD [address] [place] [address] PCP - General Family Medicine 12/02/23 Ac[employer]ical [employer] Operator Relationship Specialty Start Date End Date Van Youssef MD [address] [place] [address] PCP - General Family Medicine 12/02/23 Ac[employer]ical [employer] Operator Relationship Specialty Start Date End Date Van Youssef MD [address] [place] [address] PCP - General Family Medicine 12/02/23 [employer] Operator Relationship Specialty Start Date End Date Van Youssef MD [address] [place] [address] PCP - General Family Medicine 12/02/23 [employer] Operator Relationship Specialty Start Date End Date Van Youssef MD [address] [place] [address] PCP - General Family Medicine 12/02/23 [employer] Operator Relationship Specialty Start Date End Date Van Youssef MD [address] [place] [address] PCP - General Family Medicine 12/02/23 [employer] Operator Relationship Specialty Start Date End Date Van Youssef MD [address] [place] [address] PCP - General Family Medicine 12/02/23 Ac[employer] Operator Relationship Specialty Start Date End Date Van Youssef MD PCP - General Family Medicine 12/02/23 [employer] Operator Relationship Specialty Start Date End Date Van Youssef MD [address] [place] [address] PCP - General Family Medicine 12/02/23 Ac[employer]ical [employer] Operator Relationship Specialty Start Date End Date Van Youssef MD [address] [place] [address] PCP - General Family Medicine 12/02/23 Ac[employer]ical [employer] Operator Relationship Specialty Start Date End Date Van Youssef MD [address] [place] [address] PCP - General Family Medicine 12/02/23 Ac[employer]ical [employer] Operator Relationship Specialty Start Date End Date Van Youssef MD [address] [place] [address] PCP - General Family Medicine 12/02/23 Ac[employer]ical [employer] Operator Relationship Specialty Start Date End Date Van Youssef MD [address] [phone] PCP - General Family Medicine 12/02/23 Ac[employer]ical [employer] Operator Relationship Specialty Start Date End Date Van Youssef MD [address] [place] [address] PCP - General Family Medicine 12/02/23 Ac[employer]ical [employer] Operator Relationship Specialty Start Date End Date Van Youssef MD [address] [place] [address] PCP - General Family Medicine 12/02/23 Ac[employer]ical [employer] Operator Relationship Specialty Start Date End Date Van Youssef MD [address] [place] [address] PCP - General Family Medicine 12/02/23 Reason for Visit (unrecogniz ed section and content) Reason Comments Skin Check Reason Comments DM Foot Care DM Nails Reason Comments DM Foot Care Dm Nails Reason Comments Follow-up Rt lesion follow up Reason Comments Follow-up Rt lesions Reason Comments Tremors Reason Comments DM Foot Care Dm nail care Reason Comments DM Foot Care FOR RECORDS PERTAINING TO PATIENTS WHO ARE [...] BE BASED ON THE PRIMARY CLINICAL RECORDS. [facility] [employer] [facility] provides no warranty or guarantee of the accuracy or completeness of information in this document.
[2025-07-17 08:28] LABS: Hemoglobin 10.3 g/dL (14.0-18.0)
[2025-07-17 08:45] LABS: Protein Creatinine Ratio Urine 0.19; Total Protein Urine Random 12.0 mg/dL (<=11.9)
[2025-07-17 08:56] LABS: Alanine Aminotransferase 19 U/L (16-63); Albumin Globulin Ratio 0.8; Albumin Level 3.4 g/dL (3.4-5.0); Alkaline Phosphatase 79 U/L (46-116); Aspartate Amino Transferase 14 U/L (15-37); Cholesterol 205 mg/dL (<=200); Globulin 4.4 g/dL; HDL Cholesterol 84 mg/dL (40-60); Magnesium 1.9 mg/dL (1.8-2.4); Total Protein 7.8 g/dL (6.4-8.2); Triglycerides 58 mg/dL (<=150); VLDL CHOLESTEROL 11.6 mg/dL
[2025-07-17 10:14] LABS: Anion Gap 15.8; Blood Urea Nitrogen 39.0 mg/dL (7.0-18.0); Calcium 9.3 mg/dL (8.5-10.1); Carbon Dioxide 27.7 mmol/L (21.0-32.0); Chloride 106 mmol/L (98-107); Estimated GFR (African America 48 (>=60 mL/min/1.73m^2); Estimated GFR (Non-African Ame 39 (>=60 mL/min/1.73m^2); Glucose 159 mg/dL (74-106); Potassium 4.5 mmol/L (3.5-5.1); Sodium 145 mmol/L (136-145)
[2025-07-17 10:17] LABS: Albumin Level 3.5 g/dL (3.4-5.0)
[2025-07-18 19:08] LABS: BKV DNA, Quant PCR, Plasma Negative (Negative)
== END 2025-07-17 07:13 | disposition home or self-care (01) ==
LOC: LAB 07:14
PROVIDERS: PCP Family Medicine; Visit Provider Internal Medicine Nephrology
DX: N18.32 Chronic kidney disease, stage 3b (principal); Z94.0 Kidney transplant status; R73.01 Impaired fasting glucose
CPT/HCPCS: 36415; 80048; 80061; 80076; 82042; 82306; 82570; 83036; 83735; 84100; 84156; 85018; 87799

== ENCOUNTER 2025-09-04 15:40 | Outpatient (REF) | payer MEDICARE, SELFPAY ==
--- OUTSIDE RECORDS SUMMARY | 2025-04-26 05:30 | XMS_ITS ---
Author Organization [facility] [place] Address [address] [place] [address] Care Team Providers Care Gang Drill Press Operator Name Role Phone Pineda Erik Primary Care Provider REASON FOR VISIT injection Encounters Encounter Location Date Provider Diagnosis [facility] [address] [place] [address] 04/26/2025 Erik Sung Plan Of Treatment Next Appt Details Provider Name:Erik Sung, 10:00:00 AM, [address] [place], [address], Progress Notes * ZOEYMiroslavaNAVJOTAnson STEPHEN LDOB:[birth year] (85 yo M)Acc No.[id number]:04/26/2025 UNLOCKED PROGRESS NOTE Progress Note Patient: Anson SANTILLAN :?Pj Snug ([facility]), MDDOB:1940???Age: 85 Y???Sex:MaleDate:04/26/2025Phone:[phone]:[address] [place] [address] Subjective: * Chief Complaints: * 1 . Injection. * Medical History: Objective: * Vitals: Assessment: Plan: * Treatment: * * Electronic signature of Erik Sung MD, [id number] on 09/04/2025 at 10:10 AM EDT Sign off status: PendingVisit Status:?CANC (Cancelled) * Provider: Louise Snug ([facility])MD Date: 0 04/26/2025 Generated for Printing/Faxing/eTransmitting on:?09/04/2025 10:10 AM EDT
--- OUTSIDE RECORDS SUMMARY | 2025-08-29 06:45 | XMS_ITS ---
Author Organization [facility] in [place] Address [address] [place] [address] Care Team Providers Care Supervisor Road Administrator Name Role Phone Erik Sung Primary Care Provider [phone] Allergies Allergen (clinical drug ingredient) Drug/Non Drug Allergy documented on EMR Reaction Allergy Type Onset Date Status simvastatin Simvastatin elevated liver enzymes Drug Allerg y Active Results Component Value Reference Range Notes UA DIP NONAUTO WO MICRO (810 02) - IN OFFICE (Not yet reviewed by provider) Interpretation: Performing Lab: Notes/Report: COLOR yellow CLARITYclearGLUCOSElargeBILIRUBINnKETONEnSPECIFIC GRAVITY1.010BLOOD+PH5.0PROTEIN +UROBILINOGENnNITRITEnLEUKOCYTE ESTERASE+ REASON FOR VISIT says having confusion this AM, trouble seeing out of right eye- says started ever since they stopped the Valcyclovir at [facility] Medications Medication SIG (Take, Route, Frequency, Duration) Notes Start Date End Date Status Cyanocobalamin 1000 MCG/ML 1 mL Injection once m onthly; Duration: 30 days 5ActiveDiabetic Shoe -- DailyActiveDicyclomine HCl 10 MG2 capsules Orally Three times a day; Duration: 90 daysActiveEscitalopram Oxalate 5 MGTAKE 1 TABLET BY MOUTH EVERY DAY FOR 30 DAYS; Duration: 90ActivecloNIDine HCl 0.1 MG2 tablets Orally bid; Duration: 90 daysActiveALPRAZolam 0.25 MG1 tablet F41.9 Orally Twice a day4ActiveAspirin 81 81 MG1 tablet Orally Once a day ActiveBlood Glucose Test StripActiveBreo Ellipta 100-25 MCG/ACT1 puff Inhalation Once a day; Duration: 30 07/31/2025tiveCetirizine HCl 10 MG1 tablet Orally Twice a day; Duration: 30 daysActiveAlign Prebiotic-Probiotic 5-1.25 MG-GM1 capsule Orally once dailyActiveCefdinir 300 MG2 capsule Orally once a day; Duration: 10 08/29/2025tiveAlbuterol Sulfate (2.5 MG/3ML) 0.083%3 mL as needed Inhalation every 6 hrsActiveXarelto 15 MG1 tablet with food Orally Once a day; Duration: 30 daysActiveAldactone 25 MG1 tablet Orally Once a day; Duration: 05/28/2023ctiveTradjenta 5 MG1 tablet Orally Once a day; Duration: 07/20/2025tiveVitamin D 25 MCG (1000 UT)1 tablet Orally Once a day; Duration: 07/30/2025tiveSymbicort 80-4.5 MCG/ACT2 puffs Inhalation Once a dayActiveTamsulosin HCl 0.4 MGTAKE 1 CAPSULE BY MOUTH DAILY; Duration: ActiveSpiriva Respimat 1.25 MCG/ACT 2 puffs Inhalation Once a day; Duration: 30 days 1 inhaler each ActiveOmeprazole 20 MGTAKE 2 CAPSULES BY MOUTH DAILY; Duration: Active Ondansetron 4 MG1 tablet on the tongue and allow to dissolve Orally Q 6 hours PRN; Duration: ctivePioglitazone HCl 45 MG1 tablet Orally Once a day; Duration: 30 daysActivePrimidone 50 MG1 tablet Orally twice a day; Duration: 30 daysActiveMetoclopramide HCl 5 MGTAKE 1 TABLET BY MOUTH AT BEDTIME; Duration: ActiveLabetalol HCl 300 MGTAKE 1 TABLET BY MOUTH 3 TIMES DAILY; Duration: 90ActiveLasix 40 MG1 tablet Orally bid; Duration: 90 daysActive metFORMIN HCl 1000 MG1 tablet with a meal Orally twice a day; Duration: 90 days ActiveKlor-Con M20 20 MEQTAKE 1 TABLET BY MOUTH TWICE A DAY; Duration: 90Active Jardiance 25 MG1 tablet Orally Once a day; Duration: 90 daysActiveEzetimibe 10 MGTAKE 1 TABLET BY MOUTH ONCE DAILY; Duration: 90ActiveFerrous Sulfate 325 (65 Fe) MG1 tablet Orally Once a dayActiveFreeStyle Ron 2 Sensor -used to monitor blood sugar dx E11.9; Duration: 14 days5ActiveGlimepiride 4 MGTAKE 2 TABLETS BY MOUTH EVERY DAY; Duration: 90 daysActiveJanuvia 100 MG1 tablet Orally Once a day; Duration: 90 days5Active Immunizations Vaccine Route Administration Date Status Comme nts Flu, Fluad (77585) 65 yrs and older, single-dose syringe () IM Intramuscular 08/29/2025 Administered Social History Tobacco Use: Social History Observation Description Date Details (start date - stop date) Former Smoker NA - NA Tobacco Use/Smoking Question Answer Notes Patient is a former smoker Vital Signs Weight 177.6 lbs 08/29/2025 Height 70 in 08/29/2025 Blood pressure systolic 140 mm Hg 08/29/20 25 Blood pressure diastolic 62 mm Hg 025 BMI 25.48 kg/m2 08/29/2025 Encounters Encounter Location Date Provider Diagnosis [facility] [address] [place] [address] 08/29/2025 Erik Kerrmohan Vitamin B12 deficien cy E53.8 ; Encounter for immunization Z23 and UTI (urinary tract infection) N39.0 Assessments Encounter Date Diagnosis (ICD Code) Assessment Notes Treatment Notes Treatment Clinical Notes Section Notes 08/29/2025 Vitamin B12 deficiency (ICD-10 - E53.8) 08/29/2025Encounter for immunization (ICD-10 - Z23)08/29/2025UTI (urinary tract infection) (ICD-10 - N39.0) Plan Of Treatment Medication Medication Name Sig Start Date Stop Date Notes Cefdinir 300 MG 2 capsule Orally once a day; Duration: 10 days 08/29/2025 Pending Test Test Name Order Date UA DIP NONAUTO WO MICRO (94727) - IN OFF ICE 08/29/2025 Next Appt Details Provider Name:Erik Sung, 10:00:00 AM, [address] [place], [address], Medications Administered Medication Instructions Date of Administration Dosage Notes Cyanocobalamin mL Progress Notes * Anson HEREDIA LDOB:[birth year] (85 yo M)Acc No.[id number]:08/29/2025 Progress Note Patient: Anson SANTILLAN :?Pj Sung ([facility]), MDDOB:1940???Age: 85 Y???Sex:MaleDate:08/29/2025Phone:[phone]:[address] [facility] [place], [id number] In:10:26 AM ESTCheck Out:11:18 AM EST Subjective: * Chief Complaints: * w zachery says having confusion this AMtrouble seeing out of right eye- says started ever since they stopped the Valcyclovir at [facility] * HPI: ???General:? R eye pain - stoppped malick acyclovir -? - ios back on it now. * ROS: ???EENT:?hearing changes?denies.?visual changes?denies. non-healing mouth sores?denies.?swollen glands or neck lumps?denies.?hoarseness?denies.?sore throat?denies.?difficulty swallowing?denies.?nose bleeds?denies.?nasal congestion?denies.?ear ache?denies.?ear discharge denies.?ringing in ears?denies.?light sensitivity?denies.?eye pain?denies.?blurring?denies.?eye irritation?denies.?double vision?denies. vision loss?denies.?General/Constitutional:?Sweats:?Denies.?Fatigue?denies.?Sleep proble ms?denies.?Anorexia?denies.?Malaise?denies.?Weight loss?denies. Fatigue or Weakness?denies.?Fever or Chills?denies.?Cardiovascular:?Shortness of Breath w/lying flat?denies.?Lightheadedne ss/dizziness?denies.?Chest tightness/ heavy pressure?denies.?Swelling of legs, a nkles, or feet?denies.?Waking up with shortness of breath?denies.?Chest pain&#16 0;denies.?Palpitations?denies.?Weight gain?denies.?Respiratory:?Chronic or frequent cough?denies.?Coughing up blood&#1 60;denies.?Difficulty breathing?denies.?Productive cough?denies.?Snoring&#1 60;denies.?Shortness of breath that awakens from sleep (PND)?denies.?Chest pain? denies.?Sputum production?denies.?Wheezing?denies.?Musculoskeletal:?Joint pain?denies.?Joint Fluid?denies.?Backpain?denies.?Knee pain?denies.?Neck pain?denies.?Joint Stiffness?denies.?Muscle cramps?denies.?Weakness of muscles?denies.?Arthritis?denies.?Muscle aches?denies.?Pain in shoulder(s)?denies.?Swollen joints?denies.? * Active Problem List I48.91 Atrial fibrillation Modified On:09/09/2023/U Status:fsucwubajR96.5Hyperlipidemia Modified On:02/24/2023U Status:nmhrnqkwxS55.1Aortic regurgitation Modified On:02/24/2023/U Status:jhoiqdgotO31.909Asthma Modified On:09/09/2023/U Status:pmbdieumqV25.12Cervical radiculopathy Modified On:02/24/2023/U Status:zzjpjzewaY88.1Tricuspid regurgitation Modified On:02/24/2023/U Status:igvrnfxjcJ80.0Aortic stenosis Modified On:02/24/2023/U Status:tjqedkmpkP13.9Edema Modified On:10/08/2023/U Status:eyzwtenszJ52.9Depression Modified On:02/24/2023/U Status:ffftcflslF89.9Peripheral neuropathy Modified On:02/24/2023/U Status:ytegoyctkA43.8Vitamin B12 deficiency Modified On:02/04/2024 Status:mbgjmdeznL61.30Sleep apnea Modified On:02/24/2023 Status:fakaetmayP87.9Osteoarthritis of knee Modified On:02/24/2023 Status:lbsdvxwpnF48.909Migraine Modified On:02/24/2023 Status:fzqembxueE34.9Peptic ulcer Modified On:02/24/2023 Status:zqrsbkuhjO03.12Cervical spondylosis with myelopathy Modified On:02/24/2023 Status:hevddhobnL80.1Pulmonary edema Modified On:10/11/2023 Status:znvpgnfamC26.92Diverticulitis Modified On:02/24/2023 Status:gkqqyctojC58.40Diabetic neuropathy Modified On:06/14/2023 Status:cogphpcodO34.21Acute systolic heart failure Modified On:10/11/2023 Status:ycqhjfeciI64.0Benign prostatic hyperplasia Modified On:02/24/2023 Status:kqceeujywB29.1Dyshidrotic eczema Modified On:02/24/2023 Status:ierztmxrjP15.7Ventricular hypertrophy Modified On:02/24/2023 Status:abunvflqtD53.09Labyrinthitis Modified On:02/24/2023 Status:lkloimpueM00.0Liver mass Modified On:02/24/2023 Status:zxncpbomfP71.8Electrolyte imbalance Modified On:02/24/2023 Status:kdrvamuvtE74Haeq callus Modified On:02/24/2023 Status:vwnoaggwsV37.839Dermatochalasis Modified On:02/24/2023 Status:cfrrpspinU50.31Acute diastolic heart failure Modified On:02/24/2023 Status:fawemyxeaZ53.9Lentigo maligna Modified On:02/24/2023 Status:yratpskzdA02.7Atrial enlargement, left Modified On:02/24/2023 Status:lyqzggjgdM03.1Anxiety neurosis Modified On:02/24/2023 Status:qogishxqrW13.6Tubulovillous adenoma of colon Modified On:02/24/2023 Status:iomvxyvjhV11Ywevgnvyh Hypertension Modified On:09/09/2023 Status:wcgqzgqxoJ92.52Herpes simplex dendritic keratitis Modified On:02/24/2023 Status:bwjfzrxhxD14.890History of cardioversion Modified On:02/24/2023 Status:iihhadkazC77.30Macular degeneration, bilateral Modified On:02/24/2023 Status:wyczbyytsT63.90Deep vein thrombosis (DVT) of non-extremity vein, unspecified chronicity Modified On:02/24/2023 Status:qpzlynyhzP17.20Pulmonary hypertension Modified On:02/24/2023 Status:vnuikymypW14.10Unspecified lump in the right breast, unspecified quadrant Modified On:02/24/2023 Status:lvhevzipiW91.5Liver function test abnormality Modified On:02/24/2023 Status:jpkkvsqhaJ75.2Resting tremor Modified On:02/24/2023 Status:rxtqtwpcuN18.1COVID-19 Modified On:02/24/2023 Status:yfvkeexobS95.7Atrial enlargement, right Modified On:02/24/2023 Status:ukoafxhcm877.87Dermatochalasis of both eyelids Modified On:02/24/2023 Status:wnvhtudweJ07.52Herpesviral keratitis Modified On:02/24/2023 Status:ahtneipvuL34.3Overweight Modified On:02/24/2023 Status:keloimzllA06.1Generalized anxiety disorder Modified On:02/24/2023 Status:whuqogjmpP14.8Other nonrheumatic aortic valve disorders Modified On:02/24/2023 Status:mlqrvdljbE63.41Acute combined systolic (congestive) and diastolic (congestive) heart failure Modified On:02/24/2023 Status:bzcfesnhnB06.3Chronic kidney disease, stage 3 (moderate) Modified On:02/24/2023 Status:tcmchzmcqC90.5Polyp of colon Modified On:03/05/2023 Status:iempeqculZ94.829ABlister (nonthermal), unspecified lower leg, initial encounter Modified On:03/05/2023 Status:oukevyesmG23.9Hemorrhoid Modified On:05/28/2023 Status:mrbojsskyS63.31Acute diastolic (congestive) heart failure Modified On:06/15/2023 Status:mwoeiiqjsE46.0Nonrheumatic aortic (valve) stenosis Modified On:06/15/2023 Status:ihzimzsdbZ26.1Bradycardia, unspecified Modified On:06/15/2023 Status:xrkfcryyoN82.10Atherosclerotic heart disease of [place] coronary artery without angina pectoris Modified On:06/15/2023 Status:genpjleemU11.30Chronic kidney disease, stage 3 unspecified Modified On:06/15/2023 Status:urvzykrofN75.91Afib Modified On:06/18/2023 Status:jynyvzasvA40.9Myocardial infarct Modified On:06/18/2023 Status:llvfvgbzvF73.9CHF (congestive heart failure) Modified On:06/25/2023 Status:nnwmwgfgaC03.9Acute bronchitis Modified On:07/14/2023 Status:glfgtdhmuZ11.9Left lower lobe pneumonia Modified On:07/23/2023 Status:wskmmrgxrA23.39Other pericardial effusion (noninflammatory) Modified On:09/02/2023 Status:ooznumjdbW76.02Shortness of breath Modified On:10/28/2023 Status:mdxtkzblnZ42.8XXASkin abrasion Modified On:01/24/2024 Status:rffvktfwdQ18.82Altered mental status Modified On:08/22/2024 Status:jrrcflrniP93.82Altered mental state Modified On:08/23/2024 Status:bpyyozgppX30.1Balanitis Modified On:08/23/2024 Status:fzzunnrjqM72.9Diabetes Modified On:08/23/2024 Status:ztlynvjhkU03BH (high blood pressure) Modified On:08/23/2024 Status:jdwmbcvjvQ53.9Urinary obstruction Modified On:11/16/2024 Status:mqkclmfzxZ33.9Congestive heart failure Modified On:11/16/2024 Status:ntylwzmqzL41.9DM2 (diabetes mellitus, type 2) Modified On:11/16/2024 Status:jzxikatnxX75.9IBS (irritable bowel syndrome) Modified On:12/21/2024 Status:utwjnojovF42.1GAD (generalized anxiety disorder) Modified On:12/21/2024 Status:zgznakaavW56.9Anemia, iron deficiency Modified On:12/21/2024 Status:mkcdcntqjM85.2Chronic kidney disease (CKD), stage 2 (mild) Modified On:12/21/2024 Status:yvyvcmotbU64.9CVA (cerebral vascular accident) Modified On:05/25/2025 Status:llihmwqslC69IKT (hypertension) Modified On:05/25/2025 Status:pciuyorziL21.42Chronic combined systolic (congestive) and diastolic (congestive) heart failure Modified On:05/25/2025 Status:acbxcdnnfI44.9DM (diabetes mellitus) Modified On:05/25/2025 Status:amrflxlslN22Wwacdhjttrdl Modified On:06/22/2025 Status:oeksuaqtaJ92.9Diabetes mellitus Modified On:06/22/2025 Status:confirmed * Medical History: * Surgical History: C HOLECYSTECTOMY Back surgery TONSILLECTOMY,UNDER 12YRS Hiatal Hernia Right heart cath 05/11/25 * Hospitalization/Major Diagno stic Procedure: S OB, Swelling in legs 05/2023Weakness, Slurred Speech 08/2024Mini Stroke 2023 * Family History: F ather: . M other: . B rother(s): alive. S ister(s): alive. S on(s): alive. 2 brother(s) , 1 sister(s) . 1 son(s) , 2 daughter(s) . . * Social History: ???Tobacco Use:?Tobacco Use/Smoking?Patient is a?former smoker * Medications: T akingAlbuterol Sulfate (2.5 MG/3ML) 0.083% Nebulization Solution 3 mL as needed Inhalation every 6 hrs Aldactone(Spironolactone) 25 MG Tablet 1 tablet Orally Once a day Align Prebiotic-Probiotic(Bacillus Coagulans-Inulin) 5-1.25 MG-GM Tablet Chewable 1 capsule Orally once daily ALPRAZolam 0.25 MG Tablet 1 tablet F41.9 Orally Twice a day Aspirin 81(Aspirin) 81 MG Tablet Chewable 1 tablet Orally Once a day Blood Glucose Test Strip Breo Ellipta(Fluticasone Furoate-Vilanterol) 100-25 MCG/ACT Aerosol Powder Breath Activated 1 puff Inhalation Once a day Cetirizine HCl 10 MG Tablet 1 tablet Orally Twice a day cloNIDine HCl 0.1 MG Tablet 2 tablets Orally bid Cyanocobalamin 1000 MCG/ML Solution 1 mL Injection once monthly Diabetic Shoe - As Ordered - Daily Dicyclomine HCl 10 MG Capsule 2 capsules Orally Three times a day Escitalopram Oxalate 5 MG Tablet TAKE 1 TABLET BY MOUTH EVERY DAY FOR 30 DAYS Ezetimibe 10 MG Tablet TAKE 1 TABLET BY MOUTH ONCE DAILY Ferrous Sulfate 325 (65 Fe) MG Tablet 1 tablet Orally Once a day FreeStyle Ron 2 Sensor(Continuous Glucose Sensor) - Miscellaneous used to monitor blood sugar dx E11.9 Glimepiride 4 MG Tablet TAKE 2 TABLETS BY MOUTH EVERY DAY Januvia(SITagliptin Phosphate) 100 MG Tablet 1 tablet Orally Once a day Jardiance(Empagliflozin) 25 MG Tablet 1 tablet Orally Once a day Klor-Con M20(Potassium Chloride Radha ER) 20 MEQ Tablet Extended Release TAKE 1 TABLET BY MOUTH TWICE A DAY Labetalol HCl 300 MG Tablet TAKE 1 TABLET BY MOUTH 3 TIMES DAILY Lasix(Furosemide) 40 MG Tablet 1 tablet Orally bid metFORMIN HCl 1000 MG Tablet 1 tablet with a meal Orally twice a day Metoclopramide HCl 5 MG Tablet TAKE 1 [...] tablet Orally twice a day Spiriva Respimat(Tiotropium [place]) 1.25 MCG/ACT Aerosol Solution 2 puffs Inhalation Once a day 1 inhaler eachSymbicort(Budesonide-Formoterol Fumarate) 80-4.5 MCG/ACT Aerosol 2 puffs Inhalation Once a day Tamsulosin HCl 0.4 MG Capsule TAKE 1 CAPSULE BY MOUTH DAILY Tradjenta(linaGLIPtin) 5 MG Tablet 1 tablet Orally Once a day Vitamin D 25 MCG (1000 UT) Tablet 1 tablet Orally Once a day Xarelto(Rivaroxaban) 15 MG Tablet 1 tablet with food Orally Once a day Medication List reviewed and reconciled with the patientTaking Albuterol Sulfate (2.5 MG/3ML) 0.083% Nebulization Solution 3 mL as needed Inhalation every 6 hrs Taking Aldactone(Spironolactone) 25 MG Tablet 1 tablet Orally Once a day Taking Align Prebiotic-Probiotic(Bacillus Coagulans-Inulin) 5- 1.25 MG-GM Tablet Chewable 1 capsule Orally once daily Taking ALPRAZolam 0.25 MG Tablet 1 tablet F41.9 Orally Twice a day Taking Aspirin 81(Aspirin) 81 MG Tablet Chewable 1 tablet Orally Once a day Taking Blood Glucose Test Strip Taking Breo Ellipta(Fluticasone Furoate-Vilanterol) 100-25 MCG/ACT Aerosol Powder Breath Activated 1 puff Inhalation Once a day Taking Cetirizine HCl 10 MG Tablet 1 tablet Orally Twice a day Taking cloNIDine HCl 0.1 MG Tablet 2 tablets Orally bid Taking Cyanocobalamin 1000 MCG/ML Solution 1 mL Injection once monthly Taking Diabetic Shoe - As Ordered - [...] 1 tablet Orally Once a day Taking FreeStyle Ron 2 Sensor(Continuous Glucose Sensor) - Miscellaneous used to monitor blood sugar dx E11.9 Taking Glimepiride 4 MG Tablet TAKE 2 TABLETS BY MOUTH EVERY DAY Taking Januvia(SITagliptin Phosphate) 100 MG Tablet 1 tablet Orally Once a day Taking Jardiance(Empagliflozin) 25 MG Tablet 1 tablet Orally Once a day Taking Klor-Con M20(Potassium Chloride Radha ER) 20 MEQ Tablet Extended Release TAKE 1 TABLET BY MOUTH TWICE A DAY Taking Labetalol HCl 300 MG Tablet TAKE 1 TABLET BY MOUTH 3 TIMES DAILY Taking Lasix(Furosemide) 40 MG Tablet 1 tablet Orally bid Taking metFORMIN HCl 1000 MG Tablet 1 tablet with a meal Orally twice a day Taking Metoclopramide HCl 5 MG Tablet TAKE [...] Orally twice a day Taking Spiriva Respimat(Tiotropium [place]) 1.25 MCG/ACT Aerosol Solution 2 puffs Inhalation Once a day 1 inhaler eachTaking Symbicort(Budesonide-Formoterol Fumarate) 80-4.5 MCG/ACT Aerosol 2 puffs Inhalation Once a day Taking Tamsulosin HCl 0.4 MG Capsule TAKE 1 CAPSULE BY MOUTH DAILY Taking Tradjenta(linaGLIPtin) 5 MG Tablet 1 tablet Orally Once a day Taking Vitamin D 25 MCG (1000 UT) Tablet 1 tablet Orally Once a day Taking Xarelto(Rivaroxaban) 15 MG Tablet 1 tablet with food Orally Once a day Medication List reviewed and reconciled with the patient * Allergies: S imvastatin: elevated liver enzymes - Criticality Highno[Allergies Verified] Objective: * Vitals: W t:177.6lbs, Ht: 70 in, BP:140/62mm Hg, BMI:25.48Index, Ht-cm: 177.8 cm, Wt-k.56 kg. * Examination: ???Physical Exam: ?GENERAL:?well developed, well nourished, in no acute distress.?HEAD:?normocephalic/atraumatic.?EYES:?pupils equal, round and reactive to light, conjunctivae and sclerae normal.?EARS:?no deformity or lesion of external ear, canals and TM appear normal bilaterally, TM's intact, not inflamed with normal light reflex, hearing grossly normal to conversational speech.?NOSE:?no deformity, discharge, inflammation, or lesions. ?MOUTH:?mucous membranes moist, normal oropharynx and posterior pharynx without lesions or exudates, tongue normal, dentition normal.?NECK:?neck supple, no masses or palpable cervical nodes, trachea midline, thyroid without nodules, masses, tenderness, or enlargement.?CHEST:?no chest wall deformity, no chest wall tenderness. ?LUNGS:?normal respiratory effort and clear to auscultation, no wheezes, rales, or rhonchi, good air exchange.?CARDIO:?regular rate and rhythm, normal S1 and S2, nor murmur, rub, or gallop.?PULSES:?normal capillary refill.?ABDOMEN:?soft, non-distended, non-tender, no masses.?MUSCULOSKELETAL:?no deformity or scoliosis noted, normal range of motion, joints normal, no erythema, edema, effusion, or ecchymosis.?EXTREMITY:?no clubbing, cyanosis, edema, or deformity withnormal ROM in both upper and lower bilateral extremities.?NEUROLOGIC:?grossly normal.?SKIN:?no rashes, ulcerations, or suspicious lesions.?LYMPH NODES:?no cervical adenopathy, nodes normal.?MENTAL STATUS:?alert and oriented x3, normal mood and affect.? Assessment: * Assessment: 1.?Vitamin B12 deficiency - E53.8 (Primary)???2.?Encounter for immunization - Z23???3.?UTI (urinary tract infection) - N39.0??? Plan: * Treatment: Start Cefdinir Capsule, 300 MG, 2 capsule, Orally, once a day, 10 days, 20 Capsule, Refills 0.?LAB: [facility] (36102) - IN OFFICE (Collection Date & Time - 08/29/2025) * Immunizations: Flu, Fluad (18803) 65 yrs and older, single-dose syringe () : 0.5 mL (Route: Intramuscular) given by KATTY Price on Right Deltoid (Encounter for immunization) * Therapeutic Injections: Cyanocobalamin : 1 mL (Route: Intramuscular) given by KATTY Price on left deltoid (UauqgewU15 deficiency) * Labs: * L ab: UA DIP NONAUTO WO MICRO (86482) - IN OFFICE (Collection Date & Time - 08/29/2025) ?ValueReference Range?COLORyellow * C LARITY clear * G LUCOSE large * B ILIRUBIN n * K ETONE n * S PECIFIC GRAVITY 1.010 * B LOOD + * P H 5.0 * P ROTEIN + * U ROBILINOGEN n * N ITRITE n * L EUKOCYTE ESTERASE + * Procedure Codes: 9 0653 FLU VACCINE ADJUVANT [id number] ADMIN. [id number] VITAMIN B-12 < 1000 [id number] THERAP.INJ. OF MED. INTRAMUSCULAR OR SUBCUTANEOUS, Modifiers: 59 48525 URINALYSIS WO MICRO * Preventive Medicine: ??Screenings/Counseling:?BMI ACTION PLAN?Above Normal BMI Follow-up?Dietary management education, guidance, and counseling * * Sign off status: CompletedVisit Status:?CHK (Check Out) true * Provider: Louise Sung ([facility])MD Date: 1 Generated for Printing/Faxing/eTransmitting on:?09/04/2025 03:45 PM EDT History and Physical Notes * HPI (History of Present Illness) CategorySub-CategoryDetailNotesCategory NotesGeneralR eye pain - stoppped malick acyclovir - - ios back on it now Examination CategorySub-CategoryDetailNotesCategory NotesPhysical ExamGENERAL:well developed, well nourished, in no acute distressHEAD:normocephalic/atraumatic EYES:pupils equal, round and reactive to light, conjunctivae and sclerae normal EARS:no deformity or lesion of external ear, canals and TM appear normal bilaterally, TM's intact, not inflamed with normal light reflex, hearing grossly normal to conversational speechNOSE:no deformity, discharge, inflammation, or lesionsMOUTH:mucous membranes moist, normal oropharynx and posterior pharynx without lesions or exudates, tonguenormal, dentition normalNECK:neck supple, no masses or palpable cervical nodes, trachea midline, thyroid without nodules, masses, tenderness, or enlargementCHEST:no chest wall deformity, no chest wall tendernessLUNGS:normal respiratory effort and clear to auscultation, no wheezes, rales, or rhonchi, good air exchangeCARDIO:regular rate and rhythm, normal S1 and S2, nor murmur, rub, or gallopPULSES:normal capillary refillABDOMEN:soft, non-distended, non-tender, no massesRECTAL:MUSCULOSKELETAL:no deformity or scoliosis noted, normal range of motion, joints normal, no erythema, edema, effusion, or ecchymosisEXTREMITY:no clubbing, cyanosis, edema, or deformity with normal ROM in both upper and lower bilateral extremitiesNEUROLOGIC:grossly normalSKIN:no rashes, ulcerations, or suspicious lesionsLYMPH NODES:no cervical adenopathy, nodes normalMENTAL STATUS:alert and oriented x3, normal mood and affect
--- OUTSIDE RECORDS SUMMARY | 2025-09-04 06:13 | XMS_ITS ---
Author Organization [facility] in [place] Address [address] [place] [address] Care Team Providers Care Bilingual Teacher Aide Name Role Phone Erik Sung Primary Care Provider REASON FOR VISIT Confusion Medications Medication SIG (Take, Route, Frequency, Duration) Notes Start Date End Date Status levoFLOXacin 750 MG 1 tablet Orally Once a day; Duration: 10 days 5Active Encounters Encounter Location Date Provider Diagnosis [facility] [address] [place] [address] 09/04/2025 Erik Sung Confusion R41.0 Assessments Encounter Date Diagnosis (ICD Code) Assessment Notes Treatment Notes Treatment Clinical Notes Section Notes 09/04/2025 Confusion (ICD-10 - R41.0) Plan Of Treatment Medication Medication Name Sig Start Date Stop Date Notes levoFLOXacin 750 MG 1 tablet Orally Once a day; Durati on: 10 days 09/04/2025 Pending Test Test Name Order Date UA (URINALYSIS, COMPLETE) 09/04/2025 Urine Culture 09/04/2025 Next Appt Details Provider Name:Erik Jim Kerrmohan, 10:00:00 AM, [address] [place], [address], Progress Notes * Anson HEREDIA LDOB:[birth year] (85 yo M)Acc No.[id number]:09/04/2025 Patient:?Anson HEREDIA :1940???Age:85 Y???Sex:MalePhone:[phone] Address:[address] [place] [address], [address] * Refills Start levoFLOXacin Tablet, 750 MG, Orally, 10 Tablet, 1 tablet, Once a day, 10 days, Refills=0 Subjective: * Chief Complaints: * C onfusion * Medical History: * Surgical History: * Hospitalization/Major Diagno stic Procedure: * Medications: Objective: * Vitals: * Physical Examination: ??? Assessment: * Assessment: 1.?Confusion - R41.0 (Primary)??? Plan: * Treatment: ?LAB: UA (URINALYSIS, COMPLETE) ?LAB: Urine Culture2.?Others? Start levoFLOXacin Tablet, 750 MG, 1 tablet, Orally, Once a day, 10 days, 10 Tablet, Refills 0. ? * Procedure Codes: * true * Date:?Generated for Printing/Faxing/eTransmitting on:?09/04/2025 03:43 PM EDT
--- OUTSIDE RECORDS SUMMARY | 2025-09-04 15:43 | XMS_ITS | Encounter Summary ---
Author Organization [facility] Address [address] [place] [address] Care Team Providers Care Bench Patternmaker Metal Name Role Phone Pj Sung MD Primary Care Provider [phone] Pj Sung MD Unavailable Encounter Details DateTypeDepartmentCare Team (Latest Contact Info)Fclqrafthgl14/21/2025Telephone [facility] [address] [place] [address] Stephanie Carl MA Social History Tobacco UseTypesPacks/DayYears UsedDateSmoking Tobacco: FormerCigarettes Smokeless Tobacco: NeverAlcohol UseStandard Drinks/WeekCommentsNot Currently0 (1 standard drink = 0.6 oz pure alcohol)[facility] UtilitiesAnswerDate RecordedIn the past 12 months has the electric, gas, oil, or water company threatened to shut off services in your home?No05/10/2025Humiliation, Afraid, Rape, and Kick questionnaireAnswerDate RecordedWithin the last year, have you been afraid of your partner or ex-partner?No05/10/2025Emotionally AbusedNot on file05/10/2025 Physically AbusedNot on file05/10/2025Sexually AbusedNot on file05/10/2025 Overall Financial Resource Strain (CARDIA)AnswerDate RecordedHow hard is it for you to pay for the very basics like food, housing, medical care, and heating?Not hard at all05/10/2025PHQ-2AnswerDate RecordedPatient Health Questionnaire-2 Rruom662TransportationAnswerDate RecordedIn the past 12 months, has lack of transportation kept you from medical appointments or from getting medications?No05/10/2025Lack of Transportation (Non-Medical)Not on file 05/10/2025Housing Stability Vital SignAnswerDate RecordedIn the last 12 months, was there a time when you were not able to pay the mortgage or rent on time?No 05/10/2025Number of Times Moved in the Last YearNot on file05/10/2025t any time in the past 12 months, were you homeless or living in a fci (including now)? No05/10/2025Hunger Vital SignAnswerDate RecordedWithin the past 12 months, you worried that your food would run out before you got the money to buymore.Never true05/10/2025Ran Out of Food in the Last YearNot on file05/10/2025Sex and Gender InformationValueDate RecordedSex Assigned at DvuahCqrb77/27/2023 8:02 PM EDTLegal XofKeje5905/13/2022 10:17 PM EDTGender UnlfzootOqeu62/27/2023 8:02 PM EDT Sexual OrientationHeterosexual or Lyzwvfkr68/27/2023 8:02 PM EDTdocumented as of this encounter Miscellaneous Notes * Telephone Encounter - Stephanie Carl MA - 09/04/2025 10:10 AM EDT Patient's called to make you aware that during PT/OT, they have noted him being more SOB than usual. The nurse at the [facility] told me he has no edema. She states when she walks with him 100+ feet tothe dining room he is not SOB. I did confirm he's taking furosemide 40mg daily. I told the nurse that according to our notes, he should be taking furosemide 40mg bid. Nurse said she thinks he may have UTI and Dr. Sung is taking care of this. You're booked out at least a month. Is there something you'd like me to do for him? Please advise. Thanks. documented in this encounter Plan of Treatment DateTypeDepartmentCare Team (Latest Contact Info)Gkltdqmxyhh88/19/2025 10:00 AM ESTOffice Visit [facility] [address] [place] [address] Mike Cisneros MD [address] [facility] [place] [place] [address] 01/30/2026 3:00 PM EDTFoll-[facility] [address] [place] [address] Ruthie Linda MD [address] [facility] [place] [address] documented as of this encounter Visit Diagnoses Not on filedocumented in this encounter Care Teams Team MemberRelationshipSpecialtyStart DateEnd Date Pj Sung MD [address] [place] [address] PCP - GeneralFamily Medicine05/10/25 Pj Sung MD [address] [place] [address] 05/10/25documented as of this encounter
--- OUTSIDE RECORDS SUMMARY | 2025-09-04 15:44 | XMS_ITS | Clinical Summary ---
Author Organization [facility] Address [address] [place] [address] Care Team Providers Care Sand Miller Name Role Phone Pj Sung MD Primary Care Provider [phone] Pj Sung MD Unavailable Allergies Active AllergyReactionsCriticalityNoted DateCommentsAminolevulinic Acid Hcl Ppihljw2405/10/2025Iodinated Contrast Media07/17/2022Iodinated Contrast Media Fgmhwvv3405/10/20251625Pyuidlfyeocde34/02/9457IxvqwbiwxnpcfOclvn08/26/2025 hypotension HrfwmbdovnoXkefnvj33/26/4260Mxcrget-Yal-Hgg Reductase Yfxcjivrgi73/02/2022 Medications MedicationSigDispense QuantityRefillsLast FilledStart DateEnd DateStatus acyclovir (Zovirax) 400 mg tablet Take 1 tablet twice a day by oral route for 30 days.Active potassium chloride CR (Klor-Con M20) 20 mEq ER tablet Take 1 tablet every day by oral route for 90 days.Active furosemide (Lasix) 40 mg tablet Indications:Pulmonary hypertension (CMS/HCC),Chronic diastolic congestive heart failure (CMS/HCC)Take 2 tablets (80 mg) by mouth two times daily. 360 tablet /ctive Additional Information Patient not taking.Reported on 08/01/2025 cholecalciferol (Vitamin D3) 25 MCG (1000 UT) capsule Indications:Vitamin D deficiencyTake 5 capsules (125 mcg) by mouth in the morning. 150 capsule 110506Active b complex vitamins capsule Take 1 capsule by mouth in the morning.Active linaGLIPtin (Tradjenta) 5 mg tablet Take 5 mg by mouth in the morning.Active amoxicillin (Amoxil) 500 mg tablet Indications:S/P TAVR (transcatheter aortic valve replacement)Take 4 tablets (2,000 mg) by mouth 1 (one) time if needed (30-60 minute prior to dental procedures)for up to 20 doses. 20 tablet 5Active Additional Information Patient not taking.Reported on 08/01/2025 inclisiran (Leqvio) 284 mg/1.5 mL syringe Inject 284 mg under the skin every 6 (six) months.Active empagliflozin (Jardiance) 25 mg Take 25 mg by mouth in the morning.Active DULoxetine (Cymbalta) [address] capsule Take 20 mg by mouth in the morning. Do not crush or chew.Active SITagliptin phosphate (Januvia) 100 mg tablet Take 100 mg by mouth in the morning.Active aspirin 81 mg EC tablet Take 81 mg by mouth in the morning.Active dicyclomine (Bentyl) 10 mg capsule Take 10 mg by mouth two times daily.Active ezetimibe (Zetia) 10 mg tablet Take 10 mg by mouth in the morning.Active glimepiride (Amaryl) 4 mg tablet Take 8 mg by mouth before breakfast.Active labetalol (Normodyne) 300 mg tablet Take 300 mg by mouth three times daily.Active pioglitazone (Actos) 45 mg tablet Take 45 mg by mouth in the morning.Active omeprazole (PriLOSEC) [address] capsule Take 20 mg by mouth before breakfast. Do not crush or chew.Active primidone (Mysoline) 50 mg tablet Take 50 mg by mouth two times daily.Active acetaminophen (Tylenol) 500 mg tablet Take 1,000 mg by mouth every 6 (six) hours if needed for mild pain (1-3 pain score).Active calcium polycarbophil (Fibercon) 625 mg tablet Take 1,250 mg by mouth in the morning.Active cloNIDine (Catapres) 0.2 mg tablet Take 0.2 mg by mouth three times daily.Active fluticasone propion-salmeteroL 113 mcg-14 mcg/actuation aero powdr breath act w/sensor Inhale 1 Inhalation two times daily.Active furosemide (Lasix) 40 mg tablet Take 40 mg by mouth in the morning.Active insulin lispro (HumaLOG) 100 unit/mL injection pen Inject 2-10 Units under the skin with breakfast, with lunch, and with evening meal.Active loratadine (Claritin) 10 mg tablet Take 10 mg by mouth in the morning.Active magnesium oxide 500 mg magnesium tablet Take 500 mg by mouth three times daily.Active metFORMIN (Glucophage) 500 mg tablet Take 500 mg by mouth three times daily.Active polyethylene glycol (Glycolax) oral powder Take 17 g by mouth if needed each day (constipation).Active spironolactone (Aldactone) 25 mg tablet Take 25 mg by mouth in the morning.Active tamsulosin (Flomax) 0.4 mg 24 hr capsule Take 0.4 mg by mouth in the morning.Active tiotropium (Spiriva Respimat) 1.25 mcg/actuation inhaler Inhale 2 puffs in the morning.Active dapagliflozin propanediol (Farxiga) 10 mg Indications:Acute diastolic congestive heart failure (CMS/HCC)Take 1 tablet (10 mg) by mouth in the morning.5Active Additional Information Patient not taking.Reported on 07/30/2025 edoxaban (Savaysa) 30 mg tablet Indications:Chronic atrial fibrillation (CMS/HCC)Take 1 tablet (30 mg) by mouth in the morning. 30 tablet 1105Active Active Problems ProblemNoted DateDiagnosed DateS/P TAVR (transcatheter aortic valve replacement) 5Aortic stenosis, nnblts095Chronic kidney otpevgo9505/11/2025 Assessment & Plan (05/15/2025 1:32 PM EDT): [...] function, creatinine today 1.56, will monitor Elevated ynnltlvu85/27/2025 Assessment & Plan (05/15/2025 1:19 PM EDT): [...] of chronic kidney disease and CHF Primary remxloaupmdr56/26/2025 Assessment & Plan (05/15/2025 1:19 PM EDT): [...] start JAY or ARB Acute congestive heart rcrlxdq3705/10/2025 Assessment & Plan (05/15/2025 1:32 PM EDT): [...] to see him History of CVA (cerebrovascular accident)05/10/2025 Assessment & Plan (05/15/2025 1:19 PM EDT): [...] diabetes mellitus, with long-term current use of cgcrocu3405/10/2025 Assessment & Plan (05/15/2025 1:19 PM EDT): [...] EDT): Insulin blood sugar check diet Other kfmsuymrkooenj10/26/2025 Assessment & Plan (05/15/2025 1:19 PM EDT): [...] AM EDT): Antilipemic agents diet Chronic atrial jqsowknduggb67/26/2025 Assessment & Plan (05/15/2025 1:19 PM EDT): [...] avoid nephrotoxic meds hypovolemia nephrology consult Chest pain05/10/2025 Assessment & Plan (05/11/2025 5:43 PM EDT): Angina pectoris, vwmthjow62/25/2025 Assessment & Plan (05/11/2025 5:43 PM EDT): COrders from past 72 hours: Case Request Administrative Nursing Supervisor: Coronary angiography, Right heart cath; Standing Cardiac catheterization; Standing Nonrheumatic aortic valve duzjehrb42/25/2025bnormal findings on diagnostic imaging of heart and coronary dktfzxxiqaq40/28/2025quired buried penis 12/14/20247833Gzdisqsykpsqqm01/30/4777Iyeememqp39/30/2025PH with urinary xetoxfonjco19/30/2025Gross nerghwjqb14/30/2025Incomplete bladder emptying 12/14/2024OAB (overactive bladder)12/14/2024Post-void boctpvlkg01/30/2025ute kidney mvgpux6806/05/2024enign essential anmoaq4601/07/2024 Overview (06/05/2024): Last Assessment & Plan: (Continue current regimen.) Option to incr to 4 pills/day if/when desired. Cervical paraspinal muscle spasm01/07/2024 Overview (06/05/2024): Last Assessment & Plan: (Continue home PT). Neurogenic pain01/07/2024 Overview (06/05/2024): Last Assessment & Plan: May request to restart GBP at a lower dose - 300 hs - when/if desired. Zgtmicyqdpaymt89/23/2024ongestive heart xjdsqfc2011/17/2023Hearing loss11/17/2023 11/17/20232919Bisrrbzfismcpc48/03/202401/03/2024Hypertensive heart and chronic kidney disease with heart failure and stage 1 through stage 4 chronic kidney disease, or unspecified chronic kidney cglzaun90/01/2024Nausea Sensorineural hearing loss, eplxxylvx32 Stenosis of left renal kdzlgb82Tremor Chronic constipation with vjqvurfd06olon eyuoiy2306/10/2023 06/10/20235641Avwjpflrozomiz70/27/202307/27/2023Family history of colon cancer Fecal aafxrkm57High serum creatinine Loose wqzgrh36History of colon polyps ulmonary hypertension due to left heart hlcyqeb5610/05/2022 Pericardial skiqnnsp21/21/2022oronary neifkmmuwbifoyuy27/02/2022 Assessment & Plan (06/14/2023 3:03 PM EDT): Coronary artery disease is stable Continue GDMT- ASA, labetalol, zetia continue risk factor modifications- heart healthy diet, regular exercise as tolerated and continue all medications. Mlpjimlgmjb10/02/2022 Assessment & Plan (06/14/2023 3:02 PM EDT): stable Aortic valve ndpeoobs42/02/2022 Assessment & Plan (06/14/2023 3:02 PM EDT): Recent echo 05/2023 with noted mod AO stenosis Stage 3 chronic kidney pbklout3107/17/2022 Assessment & Plan (06/14/2023 3:05 PM EDT): BMP script sent Pulmonary edema07/17/2022Edema of riauevodrhz87/02/2022hronic atrial vikmpcpkbayq55/24/2019Atherosclerosis of renal opvady2702/26/2014Type 2 diabetes mellitus with stage 3 chronic kidney disease, without long-term current use of lwbowhu2608/12/2012cute on chronic diastolic heart pmyhrur2805/03/2012 Overview (07/17/2022): Echocardiogram 01/08/2022: Normal LV systolic [...] (06/14/2023 3:05 PM EDT): Recent admit to [facility] for shortness of breath, acute HFpEF with ARTUR. BNP 3311, BUN 26, CR 1.5-1.9, LFT normal, K+ normal. Troponin level negative. CXR showed vascular congestion Pt was admitted and diuresed as inpt. [facility] III Continue GDMT- remains on jardiance and lasix 60 mg daily for diuresis Monitor daily weights, I&O, fluid restriction 1.5-2L/day, renal function and electrolytes- Script for BMP and CBC provided pt is also seeing PCP today Aortic valve bxmouhie45/04/2012Type 1 diabetes qvlmpupx18/04/2012Sleep apnea 03/18/2012Primary lohlmtmsgcsp58/04/6806Aibghpg32/04/2012Pulmonary heart disease, spcnfmgqfsa77/04/2012 Encounters DateTypeDepartmentCare WarwFyofxkaverw49/21/2025Telephone [facility] [address] [place] [address] Stephanie Carl MA 08/03/2025Telephone [facility] [address] [place] [address] Cierra Chow 08/03/2025Refill [facility] [address] [place] [address] Ginny Sampson MA 08/01/2025 3:00 [facility] [address] [place] [address] Ruthie Linda MD Stage 3b chronic kidney disease (CMS/HCC) (Primary Dx); Primary hypertension; Electrolyte disorder; Lower extremity edema; Hyperplasia of prostate; 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); Status post xtjmtw8907/31/2025Orders Only [facility] [address] [place] [address] ProviderNava MD 07/30/2025 10:40 AM EDTOffice Visit [place] [address] [place] [address] Ruy Amanda CNP S/P TAVR (transcatheter aortic valve replacement) (Primary Dx); Chronic diastolic congestive heart failure (CMS/HCC); LBBB (left bundle branch block); Paroxysmal atrial fibrillation (CMS/HCC); Benign hypertensive heart disease with heart failure (CMS/HCC); Mixed siopxbcteparue25/04/2025 11:30 AM EDTOffice Visit [facility] [address] [place] [address] Mike Cisneros MD S/P TAVR (transcatheter aortic valve replacement) (Primary Dx); Chronic diastolic congestive heart failure (CMS/HCC); LBBB (left bundle branch block); Longstanding persistent atrial fibrillation (CMS/HCC); Pulmonary hypertension (CMS/HCC); Coronary artery disease involving ambler coronary artery of ambler heart without angina pectoris; Pericardial effusion; Stage 3b chronic kidney disease (CMS/HCC)06/14/2025Orders Only [address] [address] ProviderNava MD from Last 3 Months Immunizations ImmunizationAdministration DatesNext DueCovid (Pfizer) Bivalent Booster =>12 YRS 10/21/2022Influenza, Uchobfozcge63/06/2023,08/18/2022,09/11/2021,08/27/2020, 08/15/2020,08/15/2019,08/29/2018,08/05/2017Influenza, trivalent, adjuvanted 08/27/2020Pfizer Covid-19 Vaccine, 12&up, Fall 2022-3Pfizer SARS-CoV-2 Axmmlvjhtvn37/12/2021,01/01/2021,1Pneumococcal Conjugate PCV 131Pneumococcal Polysaccharide AVJ0709/Pneumococcal, Unspecified 01/28/2015RSV, Adult, Bevabhuy43/07/2610Ktai26/16/2019Zoster, Recombinant 11/06/2020,10/30/2019Zoster, live09/20/2015 Family History Medical HistoryRelationNameCommentsCoronary artery diseaseFatherRelationName StatusCommentsFatherDeceasedMotherDeceased Social History Tobacco UseTypesPacks/DayYears UsedDateSmoking Tobacco: FormerCigarettes Smokeless Tobacco: Never Tobacco Cessation:Counseling Given: Not Answered Alcohol UseStandard Drinks/WeekCommentsNot Currently0 (1 standard drink = 0.6 oz pure alcohol)[facility] UtilitiesAnswerDate RecordedIn the past 12 months has the [employer], gas, oil, or water [employer] threatened to shut off services in your home?No05/10/2025Humiliation, Afraid, Rape, and Kick questionnaireAnswerDate RecordedWithin the last year, have you been afraid of your partner or ex-partner?No05/10/2025Emotionally AbusedNot on file05/10/2025Physically Abused Not on file05/10/2025Sexually AbusedNot on file05/10/2025Overall Financial Resource Strain (CARDIA)AnswerDate RecordedHow hard is it for you to pay for the very basics like food, housing, medical care, and heating?Not hard at all 05/10/2025PHQ-2AnswerDate RecordedPatient Health Questionnaire-2 Score0 01/03/2025TransportationAnswerDate RecordedIn the past 12 months, has lack of transportation kept you from medical appointments or from getting medications?No 05/10/2025Lack of Transportation (Non-Medical)Not on file05/10/2025Housing Stability Vital SignAnswerDate RecordedIn the last 12 months, was there a time when you were not able to pay the mortgage or rent on time?No05/10/2025Number of Times Moved in the Last YearNot on file05/10/2025t any time in the past 12 months, were you homeless or living in a nursing home (including now)?No05/10/2025 Hunger Vital SignAnswerDate RecordedWithin the past 12 months, you worried that your food would run out before you got the money to buymore.Never true05/10/2025 Ran Out of Food in the Last YearNot on file05/10/2025Sex and Gender Information ValueDate RecordedSex Assigned at JxputIrvo06/27/2023 8:02 PM EDTLegal SexMale 05/13/2022 10:17 PM EDTGender QvvdhingUxmf18/27/2023 8:02 PM EDTSexual OrientationHeterosexual or Fyuxxutn85/27/2023 8:02 PM EDT Last Filed Vital Signs Vital SignReadingTime TakenCommentsBlood Ybzgywqb004/6709 2:52 PM EDT Kniqy7721 2:52 PM SLGEsewsdnkyjx15.7 ??C (98.1 ??F)05/17/2025 7:25 PM EDTRespiratory Gtzh7994 7:25 PM EDTOxygen Lmhkvhhieg44%07/30/2025 10:52 AM EDTInhaled Oxygen Concentration--Dvmpsm52 kg (176 lb 6.4 oz)08/01/2025 2:52 PM BVICvejcq885.9 cm (6')08/01/2025 2:52 PM EDTBody Mass Index23.9209 2:52 PM EDT Plan of Treatment DateTypeDepartmentCare Team (Latest Contact Info)Scyupkmrmuq12/19/2025 10:00 AM ESTOffice Visit [facility] [address] [place] [address] Mike Cisneros MD [address] [facility] [address] [facility] [place] [address] 01/30/2026 3:00 PM [facility]TF[facility] [address] [place] [address] Ruthie Linda MD [address] [facility] [place] [address] Health MaintenanceDue DateLast DoneCommentsMedicare Annual Wellness (AWV) 1940Diabetes: Retinopathy Uzzogxpes18/25/1949Influenza Vaccine (#1) /11/2023, 08/20/2023, 08/18/2022, Additional history existsDiabetes: Hemoglobin A1C08/11//OVID-19 Vaccine ( season) /, 08/16/2023, 10/21/2022, Additional history exists Depression Imounvtbu83/19/067621/Fall Risk Pthtqqsth64/ Adult Prlsvfu02/Pneumococcal Vaccine: 50+ YearsCompleted 08/16/2017, 01/28/2015, 01/28/2015Zoster HdiuhqhaNtrmujpgs94/22/2025, 11/06/2020, 10/30/2019, Additional history existsHIB VaccinesAged OutNo longer eligible based on patient's age to complete this topicHPV VaccinesAged OutNo longer eligible based on patient's age to complete this topicIPV VaccinesAged OutNo longer eligible based on patient's age to complete this topicMeningococcal B VaccineAged OutNo longer eligible based on patient's age to complete this topicMeningococcal VaccineAged OutNo longer eligible based on patient's age to complete this topicRotavirus VaccinesAged OutNo longer eligible based on patient's age to complete this topic Medical Devices ImplantedTypeAreaManufacturerDevice IdentifierShelf Expiration DateModel / Serial / LotKit,Heart Valve,Sapien3,26mm - [id number] - [id number] Implanted:Qty: 1 on 05/15/2025 by [facility]Pro[facility] ValveN/A: HeartEDWARDS PPOEVDEILIMU05/26/2027 [id number] / [id number] / Procedures Procedure NamePriorityDate/TimeAssociated DiagnosisCommentsCOMPLETE TRANSTHORACIC ECHO (TTE) W/WO IMAGING AGENT, STRAIN, 3D, BUBBLE STUDYRoutine 06/14/2025 1:26 PM EDTHEMOGLOBIN N3KVgb-Du23/27/2025 4:27 AM EDT from Last 3 Months or Most Recently Relevant to Health Maintenance Results * Complete Echo (TTE) w/wo Imaging Agent, Strain, 3D, Bubble Study (06/14/2025 1:26 PM EDT)Anatomical RegionLateralityModalityUltrasound Narrative Authorizing ProviderResult TypeResult StatusHistorical Provider [facility] [place]CHO PROCEDURESFinal Result * (ABNORMAL) Hemoglobin A1c (05/11/2025 4:27 AM EDT)ComponentValueRef RangeTest MethodAnalysis TimePerformed AtPathologist SignatureHemoglobin A1C9.3(H)4.0 - 6.0 %05/11/2025 1:51 PM [facility] ([facility])Estimated Average Glucose 220mg/dL05/11/2025 1:51 PM [facility] ([facility])Specimen (Source) Anatomical Location / LateralityCollection Method / VolumeCollection Time Received TimeBloodVenous blood specimen / UnknownVenipuncture / Unknown 05/11/2025 4:27 AM EDT05/11/2025 4:37 AM EDT Narrative Authorizing ProviderResult TypeResult StatusJulio Cesar Medina MDLAB BLOOD ORDERABLES Final ResultPerforming OrganizationAddressCity/State/ZIP CodePhone Number [facility] ([facility]) [address] [place] [address] from Last 3 Months or Most Recently Relevant to Health Maintenance Insurance Advance Directives * Full Code (Latest Code Status on File) Date ActivatedDate InactivatedComments05/10/2025 9:05 AM05/17/2025 10:26 PM * DNR CC-A Date ActivatedDate InactivatedComments05/10/2025 4:16 AM05/10/2025 9:05 AMQuestion AnswerCommentsSelect If Any Apply:* No Intubation Care Teams Team MemberRelationshipSpecialtyStart DateEnd Pj Sung MD [address] [place] [address] PCP - GeneralFamily Medicine05/10/25 Pj Sung MD [address] [place] [address] 05/10/25
--- OUTSIDE RECORDS SUMMARY | 2025-09-04 15:44 | XMS_ITS | Clinical Summary ---
Author Organization [facility] Address [address] [place] [address] Care Team Providers Care Engineer First Assistant Name Role Phone Pj Sung MD Primary Care Provider [phone] Allergies Active AllergyReactionsCriticalityNoted DateCommentsNitro-PatchIntolerance 08/21/2013 Medications MedicationSigDispense QuantityRefillsLast FilledStart DateEnd DateStatus LABETALOL 200 mg tablet Take 200 mg by mouth twice daily.06/25/2013ctive NIFEDIPINE SR 90 mg 24 hr tablet Take 90 mg by mouth once daily.06/25/2013ctive OMEPRAZOLE 20 mg capsule Take 20 mg by mouth once daily.07/13/2013ctive TAMSULOSIN 0.4 mg Cp24 Take 0.4 mg by mouth once daily.06/25/2013ctive dicyclomine (BENTYL) 10 mg capsule Take 10 mg by mouth before meals and at bedtime.Active metoclopramide HCl 5 mg tablet Take 5 mg by mouth twice daily.Active Aspirin 81 mg Tab Take 81 mg by mouth once daily.Active ezetimibe (ZETIA) 10 mg tablet Take 10 mg by mouth once daily.Active olmesartan (BENICAR) 40 mg tablet Take 40 mg by mouth once daily.Active glimepiride (AMARYL) 2 mg tablet Take 2 mg by mouth daily with breakfast.Active cloNIDine TTS (CATAPRES-TTS) 0.1 mg/24 hr 08/11/2015ctive clopidogrel (PLAVIX) 75 mg tablet 05/02/2015ctive furosemide (LASIX) 20 mg tablet 08/10/2015ctive gabapentin (NEURONTIN) 100 mg capsule Take 600 mg by mouth three times daily.05/15/2015ctive methocarbamol (ROBAXIN) 500 mg tablet 07/09/2015Active acyclovir (ZOVIRAX) 400 mg tablet 07/18/2016Active ALPRAZolam (XANAX) 0.25 mg tablet 06/17/2016Active fluticasone (FLONASE) 50 mcg/actuation nasal spray 07/14/2016Active cefdinir (OMNICEF) 300 mg capsule 05/26/2016Active gabapentin (NEURONTIN) 600 mg tablet 08/22/2016Active labetalol (TRANDATE) 300 mg tablet Take 150 mg by mouth twice daily.07/14/2016Active NIFEDICAL XL 60 mg 24 hr tablet 07/14/2016Active PRED MILD 0.12 % ophthalmic suspension 07/19/2016Active Active Problems ProblemNoted DateDiagnosed EsbgKypdwnxkeqrljm86/07/2013 Social History Tobacco UseTypesPacks/DayYears UsedDateSmoking Tobacco: NeverSmokeless Tobacco: NeverAlcohol UseStandard Drinks/WeekCommentsNo0 (1 standard drink = 0.6 oz pure alcohol)Sex and Gender InformationValueDate RecordedSex Assigned at BirthNot on fileLegal CcyVuol39/02/2012 10:12 AM ESTGender IdentityNot on fileSexual OrientationNot on file Last Filed Vital Signs Vital SignReadingTime TakenCommentsBlood Sutjhxdx718/ 10:47 AM EDT Hgtlc754808/24/2016 10:47 AM CAQKqqsadogcco05.4 ??C (97.5 ??F)08/24/2016 10:47 AM EDTRespiratory Qoxi3684 10:47 AM EDTOxygen Saturation--Inhaled Oxygen Concentration--Esrtyc598.7 kg (226 lb 6.4 oz)08/24/2016 10:47 AM DUPYbgchz481.9 cm (6')08/24/2016 10:47 AM EDTverified dmcBody Mass Index30.7108/24/2016 10:47 AM EDT Plan of Treatment Health MaintenanceDue DateLast DoneCommentsAnxiety Exzzwfepl98/25/1957Depression Uhptjkupa99/25/1957DTaP,Tdap,Td Vaccine (1 - Tdap)1958Diabetes Screening 02/07/1984Pneumococcal Vaccine: 50+ (1 of 1 - PCV)1989Shingrix Vaccine (1 of 2)1989RSV Vaccine (1 - 1-dose 75+ series)2014dvance Directive Uetirsalir36/01/2025ovid-19 Vaccine ( - 2024- season)2025Influenza Vaccine (#1)2025 [facility] Address: [facility] [id number] [place] [address] Care Teams Team MemberRelationshipSpecialtyStart DateEnd Pj Sung MD PCP - GeneralFamily Dohzmhfi67/10/12
--- OUTSIDE RECORDS SUMMARY | 2025-09-04 15:44 | XMS_ITS | Clinical Summary ---
Author Organization [employer] s tem Address [id number] [address] [place] [address] Care Team Providers Care Prism Measurer Name Role Phone Pj Sung MD Primary Care Provider [phone] Social History Tobacco UseTypesPacks/DayYears UsedDateSmoking Tobacco: Never AssessedSex and Gender InformationValueDate RecordedSex Assigned at BirthNot on fileLegal Sex Male02/14/2025 11:32 AM EDTGender IdentityNot on fileSexual OrientationNot on file Plan of Treatment Health MaintenanceDue DateLast DoneCommentsDepression Jiozmfdzb68/25/1951Tobacco Aquacrqxf03/25/1952Fall Risk Lvnhbalfe65/25/2004COVID-19 Vaccine ( season)/12/2022, 10/21/2022, 08/26/2021, Additional history exists Influenza Lqgyjfa21/04/2023, 08/18/2022, 09/11/2021, Additional history existsDTaP,Tdap and Td Vaccines (2 - Td or Tdap) Zoster (Shingles) HrtqhyeEilybrroq57/22/2025, 11/06/2020, 10/30/2019, Additional history exists Medical Devices Not on file Insurance Care Teams Team MemberRelationshipSpecialtyStart Date Pj Sung MD [address] [facility], [place] [address] PCP - GeneralMercyone [facility] Centerly Medicine02/14/25
--- OUTSIDE RECORDS SUMMARY | 2025-09-04 15:44 | XMS_ITS | Clinical Summary ---
Author Organization [facility] Address [address] [facility] [place] [address] Care Team Providers Care Mannequin Mold Maker Name Role Phone Pj Sung MD Primary Care Provider [phone] Allergies Active AllergyReactionsCriticalityNoted DateCommentsIodinated Contrast Media 08/24/2023 Other Reaction(s): Unknown Ihlcmhbufqzlh54/10/2022 Other Reaction(s): Not available, Unknown Eusvmfe6908/24/2023 Other Reaction(s): elevated liver enzymes, Unknown Medications MedicationSigDispense QuantityRefillsLast FilledStart DateEnd DateStatus acyclovir (Zovirax) 400 MG tablet Take 1 tablet twice a day by oral route for 30 days.Active alogliptin (Nesina) 25 MG tablet Take 1 tablet by mouth in the morning.11/12/2022ctive ALPRAZolam (Xanax) 0.25 MG tablet every 12 (twelve) hours.Active aspirin 81 MG EC tablet Take 1 tablet by mouth in the morning.Active B-Complex tablet as directed OrallyActive cloNIDine (Catapres) 0.1 MG tablet Take 1 tablet by mouth in the morning and 1 tablet before bedtime.Active dicyclomine (Bentyl) 10 MG capsule Take 1 capsule every day by oral route.Active ezetimibe (Zetia) 10 MG tablet Take 1 tablet by mouth in the morning.Active ferrous sulfate 325 (65 Fe) MG tablet Take 1 tablet by mouth in the morning and 1 tablet before bedtime.Active Lasix 20 MG tablet 1 (one) time each day at the same time.07/07/2023ctive glimepiride (Amaryl) 4 MG tablet Take 1 tablet by mouth in the morning and 1 tablet before bedtime.Active labetalol (Normodyne) 300 MG tablet 3 (three) times a dayActive levoFLOXacin (Levaquin) 750 MG tablet 1 (one) time each day at the same time.07/23/2023ctive omeprazole (PriLOSEC) [address] capsule Take 2 capsules every day by oral route for 90 days.Active pioglitazone (Actos) 45 MG tablet TAKE 1 TABLET BY MOUTH EVERY DAY for 90Active KLOR-CON 20 MEQ ER tablet Take 1 tablet by mouth in the morning and 1 tablet before bedtime.Active prednisoLONE acetate (Pred-Forte) 1 % ophthalmic suspension INSTILL 1 DROP INTO RIGHT EYE 3 TIMES A DAY DIRECTEDActive tamsulosin (Flomax) 0.4 MG 24 hr capsule Take 1 capsule every day by oral route for 90 days.Active cholecalciferol (Vitamin D-[address]) 25 MCG (1000 UT) tablet Take 2,000 Units by mouth in the morning.Active metoclopramide (Reglan) 5 MG tablet every 12 (twelve) hoursActive ezetimibe (Zetia) 10 MG tablet Take 10 mg by mouth in the morning.Active empagliflozin (Jardiance) 25 MG Take 1 tablet by mouth in the morning.11/12/2022ctive DULoxetine (Cymbalta) [address] capsule Indications:Neurogenic painTake 1 capsule (20 mg) by mouth at bedtime 90 capsule 4Active Additional Information Patient not taking.Reported on 05/08/2025 rivaroxaban (Xarelto) 15 MG tablet Take 15 mg by mouthActive primidone (Mysoline) 250 MG tablet Indications:Benign essential tremor1/2 tab BID 90 tablet 5Active Additional Information Patient taking differently: 100 mg Oral 2 times daily, Morning, Bedtime, 1/2 tab BID, Reported on 05/08/2025 acetaminophen (Tylenol) 500 MG tablet Take 1,000 mg by mouth every 6 (six) hours if needed for mild painActive bacitracin 500 UNIT/GM ointment Apply 1 application topically in the morning and 1 application before bedtime. Active psyllium (Metamucil) 58.6 % packet Take 1 packet by mouth Daily Mix and drink with at least 8 ounces of water or juice.Active fluticasone-salmeterol (AirDuo RespiClick) 113-14 MCG/ACT inhaler Inhale [...] disintegrating tablet Take 10 mg by mouth DailyActive magnesium oxide 500 MG tablet Take 500 mg by mouth in the morning and 500 mg in the evening and 500 mg before bedtime.Active metFORMIN (Glucophage) 500 MG tablet Take 500 mg by mouth in the morning and 500 mg in the evening and 500 mg before bedtime.Active polyethylene glycol, PEG, 3350 (Miralax) 17 g packet Take 17 g by mouth Daily as neededActive potassium chloride (Klor-Con) 20 MEQ packet Take 20 mEq by mouth DailyActive tiotropium (Spiriva) [address] 1 capsule into inhaler and inhale in the morning.Active spironolactone (Aldactone) 25 MG tablet Take 25 mg by mouth DailyActive linaGLIPtin (Tradjenta) 5 MG tablet Take 5 mg by mouth DailyActive budesonide-formoterol (Symbicort) 80-4.5 MCG/ACT inhaler Inhale 2 puffs in the morning and 2 puffs before bedtime. Rinse mouth with water after use to reduce aftertaste and incidence of candidiasis. Do not swallow. Active cetirizine (ZyrTEC) 10 MG chewable tablet Chew 10 mg DailyActive Active Problems ProblemNoted DateDiagnosed DateB12 ptdxknarzy77/26/2025 Overview (07/10/2025): --- partially or fully due to PPI. Assessment & Plan (07/27/2025 1:18 PM EDT): --- partially or fully due to PPI. (Continue B12 injections.) Assessment & Plan (07/10/2025 11:24 AM EDT): --- partially or fully due to PPI. 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 (We have only MRA) Carotid stenosis, fmkgvphqo08/27/2025 Assessment & Plan (07/27/2025 1:18 PM EDT): Plan redo CTA neck 2026 (US carotids is underestimating stenosis). Assessment & Plan (07/10/2025 11:24 AM EDT): Plan redo CTA neck 2026 (US carotids is underestimating stenosis). Assessment & Plan (05/08/2025 4:35 PM EDT): Plan redo US carotids 2026. Assessment & Plan (04/10/2025 1:49 PM EDT): Plan redo US carotids 2026. JOSIAH (obstructive sleep apnea)01/11/2024 Assessment & Plan (07/27/2025 1:18 PM EDT): [Family prev requested that this office take over JOSIAH.] Split-night study ([facility] [place]), split for AHI >= 5. - not contacted, please check on. Afterward, will need new machine, supplies, etc. Download 1 mo then before appt. Assessment & Plan (07/10/2025 11:24 AM EDT): Family requesting that this office take over JOSIAH. Split-night study ([facility] [place]), split for AHI >= 5. Afterward, will need new machine, supplies, etc. Download 1 mo then before appt. Assessment & Plan (05/08/2025 4:35 PM EDT): Family will bring CPAP to SNF. Has been noncompliant at home May benefit from re titration study Managed by Dr John in [place] Assessment & Plan (04/10/2025 1:49 PM EDT): Still have only PAPT. Get original PSG.0 Assessment & Plan (08/01/2024 11:49 AM EDT): Get original PSG (only received PAPT). Assessment & Plan (01/11/2024 2:07 PM EST): Get sleep studies for our records - [facility]. Also send to [facility] (though not sure if liliya'd there). Vzvckcyvlkzgdm65/23/2024 Assessment & Plan (05/08/2025 4:35 PM EDT): (Continue current regimen.) Ikfsff6401/07/2024 Overview (07/27/2025): --- BET. Perhaps mild degree of Parkinson ds as well. Assessment & Plan (07/27/2025 1:18 PM EDT): Explained to pt & family that mere reduction of PRM will not improve effects on rivaroxaban metabolism. The only option is remaining off or restarting to an effective dose (keeping in mind that labetalol is also helping to treat this.) TPM theoretically an option - but pt is already stage III kidney ds. Deep brain stimualtion theoretically an options - but given that the tremor is not severe and his age, I find this unlikely. Family also (very reasonably) not that interested in this option. Tremor is quite bothersome off PRM. I feel the best approach is to restart PRM and ask cardiology to adjust up the rivaroxaban dose to compensate. Assessment & Plan (07/10/2025 11:24 AM EDT): (Mere reduction of PRM will not improve rivaroxaban metabolism.) Decr PRM to 50 hs x 2 weeks, then stop. Redo exam off meds. Assessment & Plan (05/08/2025 4:35 PM EDT): [...] pills/day if/when desired. Cervical paraspinal muscle spasm01/07/2024 Assessment & Plan (07/27/2025 1:18 PM EDT): PT when/if needed. Assessment & Plan (07/10/2025 11:24 AM EDT): PT when/if needed. Assessment & Plan (05/08/2025 4:35 PM EDT): (In SNF post stroke) Assessment & Plan (04/10/2025 1:49 PM EDT): (Continue home PT.) Assessment & Plan (08/01/2024 11:49 AM EDT): (Continue home PT.) Assessment & Plan (01/11/2024 2:03 PM EST): (Continue home PT). Neurogenic pain01/07/2024 Assessment & Plan (07/27/2025 1:18 PM EDT): (Continue current regimen.) Assessment & Plan (07/10/2025 11:24 AM EDT): Restart duloxetine 20 hs. Observe for (worsening of) restlessness Assessment & Plan (05/08/2025 4:35 PM EDT): [...] 300 hs - when/if desired. Resolved Problems ProblemNoted DateDiagnosed DateResolved DateParkinson qeiocpn9001/07/2024 01/11/2024 Encounters DateTypeDepartmentCare AuxlUfmhlvqdonz35/08/2025Telephone [facility] [address] [facility] [address] [address] Claritza Nam MA 08/14/2025[facility] [address] [address] Claritza Nam MA 07/27/2025 12:45 PM EDTOffice Visit [facility] [address] [place] [address] Lenin Montoya MD Tremor (Primary Dx); Neurogenic pain; Carotid stenosis, bilateral; Sequelae of cerebral infarction; JOSIAH (obstructive sleep apnea); B12 deficiency; Cervical paraspinal muscle spasm07/27/2025amboo flowsheet [facility] [address] [place] [address] Lenin Montoya MD 07/27/20251416Rjzurt37/26/2025 10:30 AM EDTOffice Visit [facility] [address] [facility] [address] [place] [address] Lenin Montoya MD Tremor (Primary Dx); Neurogenic pain; Carotid stenosis, bilateral; Sequelae of cerebral infarction; JOSIAH (obstructive sleep apnea); Cervical paraspinal muscle spasm; B12 vimvdevomm83/26/2025amb flowsheet [facility] [address] [place] [address] Lenin Montoya MD 07/10/20252103Xdjbkw10/14/2025 11:50 AM EDTOffice Visit [facility] [address] [facility] [address] [place] [address] Blaise Dc DPM Verruca plantaris (Primary Dx); Foot pain, right; Diabetes mellitus due to underlying condition with diabetic polyneuropathy, unspecified whether halfway insulin use (HCC); Pain due to onychomycosis of toenails of both feet06/28/2025amb flowsheet [facility] [address] [facility] [address] [place] [address] Blaise Dc DPM 06/28/2025Travelfrom Last 3 Months Family History Medical HistoryRelationNameCommentsHeart diseaseFatherCancerMotherMelanomaNeg Hx RelationNameStatusCommentsFatherDeceasedMotherDeceased Social History Tobacco UseTypesPacks/DayYears UsedDateSmoking Tobacco: FormerCigarettes Smokeless Tobacco: Never Tobacco Cessation:Counseling Given: Yes Alcohol UseStandard Drinks/WeekCommentsNever0 (1 standard drink = 0.6 oz pure alcohol)caffeine 1-2 cups/daySex and Gender InformationValueDate RecordedSex Assigned at BirthNot on fileLegal NfhOhsw0301/27/2023 6:35 PM EDTGender Identity Not on fileSexual OrientationNot on file Last Filed Vital Signs Vital SignReadingTime TakenCommentsBlood Qveqjnvf813/7910/ 8:19 AM EDT Dvgcb880709/14/2024 8:19 AM EDTTemperature--Respiratory Ndbo980606/28/2025 11:28 AM EDTOxygen Saturation--Inhaled Oxygen Concentration--Czdgam29.2 kg (179 lb) 07/10/2025 10:36 AM TNGSvykjh442.7 cm (5' 8 )07/10/2025 10:36 AM EDTBody Mass Index27.22007/10/2025 10:36 AM EDT Plan of Treatment DateTypeDepartmentCare Team (Latest Contact Info)Piilxbnmmod89/28/2025 1:15 PM EDTOffice Visit [facility] [address] [facility] [address] [place] [address] Mercedes Joy MD [address] [facility] [address] [place] [address] 09/20/2025 11:40 AM ESTOffice Visit [facility] [address] [facility] [address] [place] [address] Blaise Dc, DPM [address] [facility] [address] [place] [address] 10/09/2025 1:45 PM ESTOffice Visit [facility] [address] [facility] [address] [place] [address] Lenin Montoya MD [address] [facility] [address] [place], [place] [id number] Health MaintenanceDue DateLast DoneCommentsInfluenza Vaccine (#1)07/16/2025 08/15/2024, 08/20/2023, 08/18/2022, Additional history existsPneumococcal Vaccine: 65+ XwtibIchtecoig89/02/2017, 01/28/2015, 01/28/2015 Insurance Care Teams Team MemberRelationshipSpecialtyStart Date Pj Sung MD [address] [place] [address] [facility]02/23
--- OUTSIDE RECORDS SUMMARY | 2025-09-04 15:44 | XMS_ITS | Encounter Summary ---
Author Organization [facility] Address [address] [place] [address] Care Team Providers Care Courtesy Car Driver Name Role Phone Pj Sung MD Primary Care Provider [phone] Encounter Details DateTypeDepartmentCare Team (Latest Contact Info)Npcucuwyyrn16/08/2025Telephone [facility] [address] [phone] Claritza Nam MA Social History Tobacco UseTypesPacks/DayYears UsedDateSmoking Tobacco: FormerCigarettes Smokeless Tobacco: NeverAlcohol UseStandard Drinks/WeekCommentsNever0 (1 standard drink = 0.6 oz pure alcohol)caffeine 1-2 cups/daySex and Gender InformationValueDate RecordedSex Assigned at BirthNot on fileLegal SexMale 01/27/2023 6:35 PM EDTGender IdentityNot on fileSexual OrientationNot on file documented as of this encounter Miscellaneous Notes * Telephone Encounter - Sammy Esposito - 08/23/2025 10:48 AM EDT [facility] called and advised of message, she took verbal order from me. * Telephone Encounter - Claritza Nam MA - 08/22/2025 3:16 PM EDT Daughter Valerie called and said since restarting PRM 50/50 pt has had his days and nights mixed up, increased confusion, believing dreams actually happened when he wakes up, talking to himself. Pt has not started any other meds. Per Dr. Montoya could be PRM, stop morning dose and keep evening dose and seeif this fixes anything. Daughter said pt is currently at [facility] and asked I call mgr [facility] . for [facility] asking for [facility] to let us know where to send orders. documented in this encounter Plan of Treatment DateTypeDepartmentCare Team (Latest Contact Info)Fbrptklltro04/28/2025 1:15 PM EDTOffice Visit [facility] [address] [place] [address] Mercedes Joy MD [address] [place] [address] 09/20/2025 11:40 AM ESTOffice Visit [facility] [address] [facility] [address] [place] [address] Blaise Dc DPM [address] [facility] [address] [place] [address] 10/09/2025 1:45 PM ESTOffice Visit [facility] [address] [place] [address] Lenin Montoya MD [address] [facility] [address] [place], [place] [id number] documented as of this encounter Visit Diagnoses Not on filedocumented in this encounter Care Teams Team MemberRelationshipSpecialtyStart DateEnd Date Pj Sung MD [address] [facility] [place] [address] PCP - GeneralFamily Medicine12/02/23documented as of this encounter
--- OUTSIDE RECORDS SUMMARY | 2025-09-04 15:44 | XMS_ITS | Clinical Summary ---
Author Organization [facility] Address [address] [place] [address] Phone Care Team Providers Care Social Insurance Specialist Name Role Phone Unavailable Primary Care Provider Unavailabl e Social History Tobacco UseTypesPacks/DayYears UsedDateSmoking Tobacco: Never AssessedSex and Gender InformationValueDate RecordedSex Assigned at BirthNot on fileLegal Sex Male10/09/2022 2:16 PM ESTGender IdentityNot on fileSexual OrientationNot on file Plan of Treatment Not on file
--- OUTSIDE RECORDS SUMMARY | 2025-09-04 15:45 | XMS_ITS | Patient Health Record ---
Author Organization [facility] in [place] Address [address] [place] [address] Care Team Providers Care Clinical Sciences Professor Name Role Phone Pineda Erik Primary Care Provider Allergies Allergen (clinical drug ingredient) Drug/Non Drug Allergy documented on EMR Reaction Allergy Type Onset Date Status simvastatin Simvastatin elevated liver enzymes Drug Allerg y Active Results Component Value Reference Range Notes AMMONIA Reviewed date:01/18/2025 09:02:22 PM Interpretation: Performing Lab: Notes/Report: [facility] , Ammonia <10 11-32 umol/L Performing Lab:see noteML - [facility] LBBNP Reviewed date:01/18/2025 09:02:22 PM Interpretation: Performing Lab: Notes/Report: [facility] ,NT Pro B Type Natriuretic Hzli0287.0<=1800.0 pg/mL RESULTS CALLED TO cynthia valenzuela lpn @BY Cecilia Elder at 1158 Performing Lab:see noteML - [facility] LBUA DIP NONAUTO WO MICRO (89010) - IN OFFICE (Not yet reviewed by provider) Interpretation: Performing Lab: Notes/Report: COLORyellowCLARITYclearGLUCOSElargeBILIRUBINnKETONEnSPECIFIC GRAVITY1.010BLOOD+ PH5.0PROTEIN+UROBILINOGENnNITRITEnLEUKOCYTE ESTERASE+BNP Reviewed date:04/15/2025 04:42:25 PM Interpretation: Performing Lab: Notes/Report: [facility] ,NT Pro B Type Natriuretic Cseo1135.0<=1800.0 pg/mLRESULTS CALLED TO DR. SUNG Performing Lab:see noteML - [facility] LBBNP Reviewed date:05/09/2025 09:23:04 PM Interpretation: Performing Lab: Notes/Report: [facility] ,NT Pro B Type Natriuretic Arjp3200.0<=1800.0 pg/mLRESULTS CALLED TO MARIA LUZ CHAPMANPerforming Lab:see noteML - [facility] LBCBC AUTO DIFF Reviewed date:09/08/2024 12:40:56 PM Interpretation: Performing Lab: Notes/Report: [facility] ,White Blood Count7.94.0-11.0 10 3/uLRed Blood Count4.624.70-6.10 10 6/uL Bddraoctdj54.814.0-18.0 g/sNFraaichtrj02.942.0-54.0 %Mean Corpuscular Volume 101.580.0-94.0 fLMean Corpuscular Tgefkpjxnm87.225.9-34.0 pgMean Corpuscular HGB Conc33.729.9-35.2 g/dLRed Cell Distribution Width14.311.0-15.0 %Platelet Count 971318-626 10 3/uLMean Platelet Cmmvgp41.39.5-13.5 fLNeutrophils Percent Auto 77.843.0-75.0 %Lymphocytes Percent Auto11.720.5-60.0 %Monocytes Percent Auto8.1 1.7-12.0 %Eosinophils Percent Auto1.50.9-7.0 %Basophils Percent Auto0.50.2-2.0 % Immature Granulocytes Pct Auto0.40.0-0.5 %Neutrophils Absolute Auto6.11.4-6.5 10 3/uLLymphocytes Absolute Auto0.91.2-3.8 10 3/uLMonocytes Absolute Auto0.60.3-0.8 10 3/uLEosinophils Absolute Auto0.10.0-0.7 10 3/uLBasophils Absolute Auto0.00.0- 0.1 10 3/uLImmature Granulocytes Abs Auto0.030.00-0.03 10 3/uLPerforming Lab:see noteML - [facility] LBUA RANDOM W or MICROSCOPIC Reviewed date:09/10/2024 09:12:17 PM Interpretation: Performing Lab: Notes/Report: [facility] ,Color UrineLT. YELLOWYELLOWClarity UrineCLEARCLEARSpecific [place] Urine1.010 1.005-1.025pH Urine7.05.0-9.0Protein UrineNEGATIVENEG/TRACE mg/dLGlucose Urine UA>=1000NEGATIVE mg/dLBilirubin UrineNEGATIVENEGATIVEKetones UrineNEGATIVE NEGATIVE mg/dLBlood UrineNEGATIVENEGATIVENitrite UrineNEGATIVENEGATIVE Urobilinogen Urine0.20.2-1.0 EU/dLLeukocyte Esterase UrineNEGATIVENEGATIVEWBC Urine0-2NONE SEEN #/HPFRBC Urine0-20-2 #/HPFBacteria UrineNONE SEENNONE SEEN #/HPFMucus UrineNONE SEENNONE SEENSquamous Epithelial Cell UrineRARENONE/RARE #/LPFCrystals Seen?None SeenNone Seen #/HPFCast Seen?NONE SEENNONE SEEN #/LPF Performing Lab:see noteML - [facility] LBECG 12 lead Reviewed date:09/13/2024 06:22:56 PM Interpretation: Performing Lab: Notes/Report: Source Facility: [place] [address] Electrocardiograph Report Signed Patient: NADIR HEREDIA MR#: [id number] : 1940 Acct:[id number] Age/Sex: 84 / M ADM Date: 09/08/24 Loc: ER Attending Dr: Ordering Physician: Akhil Dobson M.D. Date of Service: 09/08/24 Procedure(s): ECG 12 lead Accession Number(s): [id number] cc: [facility] Test Date: 2024-09-08 Pat Name: NADIR HEREDIA Department: Room: - Gender: Male Adhesive Sprayer: : 1940 Requested By: VAN SUNG Order Number: [id number] Reading MD: NOEL DAWN Measurements Intervals [place] Rate: 72 P: -19010 DE: -37051 QRS: 97 QRSD: 94 T: 30 QT: 402 QTc: 426 Interpretive Statements 73264 Atrial fibrillation with aberrant conduction, or ventricular premature complexes 3433 Septal myocardial infarction, probably old 3533 Lateral myocardial infarction, probably old 7300 Indeterminate axis 9150 abnormal ECG Electronically Signed On 09-12-2024 22:59:43 EDT by NOEL DAWN Dictated By: Noel Dawn D.O. Signed By: 09/12/24 5001 DD/ 1203 TD/TT: T[employer] Mounter:CT head/brain wo con Reviewed date:09/10/2024 09:12:17 PM Interpretation: Performing Lab: Notes/Report: Source Facility: [place] [address] CT Scan Report Signed Patient: NADIR HEREDIA MR#: [id number] : 1940 Acct:[id number] Age/Sex: 84 / M ADM Date: 09/08/24 Loc: ER Attending Dr: Ordering Physician: Akhil Dobson M.D. Date of Service: 09/08/24 Procedure(s): CT head/brain wo con Accession Number(s): [id number] cc: Van Sung M.D. [place] [id number] Patient Name: NADIR HEREDIA MRN: [id number] date: 1940 Sex: M Assigned Patient Location: ER Current Patient Location: ER Accession/Order Number: [id number] Exam Date: 09/08/2024 12:45 Report Date: 09/08/2024 [...] Signed By: 09/08/24 1311 DD/ 1308 TD/TT: T[employer] Mounter:KENDALL echo doppler complete Reviewed date:10/18/2024 07:39:53 PM Interpretation: Performing Lab: Notes/Report: Source Facility: [place] [address] Cardiology Report Signed Patient: NADIR HEREDIA MR#: [id number] : 1940 Acct:[id number] Age/Sex: 84 / M ADM Date: 10/18/24 Loc: CARD Attending Dr: CLARIBEL PUGA Ordering Physician: CLARIBEL PUGA Date of Service: 10/18/24 Procedure(s): KENDALL echo doppler complete Accession Number(s): [id number] cc: Van Sung M.D.; CLARIBEL PUGA Patient Name: NADIR HEREDIA MR#: [id number] : 1940 Exam Date: 10/18/2024 Ordering Doctor: [...] Signed By: 10/18/24 1426 DD/ 1425 TD/TT: T[employer] Mounter:CBC AUTO DIFF Reviewed date:10/29/2024 08:20:36 PM Interpretation: Performing Lab: Notes/Report: [facility] ,White Blood Count7.54.0-11.0 10 3/uLRed Blood Count4.054.70-6.10 10 6/uL Wuaveqzuue33.914.0-18.0 g/zPPuytbxueru86.642.0-54.0 %Mean Corpuscular Volume 100.280.0-94.0 fLMean Corpuscular Aajgvkieid74.325.9-34.0 pgMean Corpuscular HGB Conc34.229.9-35.2 g/dLRed Cell Distribution Width14.111.0-15.0 %Platelet Count 965868-902 10 3/uLMean Platelet Dueuxx20.89.5-13.5 fLNeutrophils Percent Auto 78.843.0-75.0 %Lymphocytes Percent Auto8.820.5-60.0 %Monocytes Percent Auto9.6 1.7-12.0 %Eosinophils Percent Auto1.70.9-7.0 %Basophils Percent Auto0.40.2-2.0 % Immature Granulocytes Pct Auto0.70.0-0.5 %Neutrophils Absolute Auto5.91.4-6.5 10 3/uLLymphocytes Absolute Auto0.71.2-3.8 10 3/uLMonocytes Absolute Auto0.70.3- 0.8 10 3/uLEosinophils Absolute Auto0.10.0-0.7 10 3/uLBasophils Absolute Auto0.0 0.0-0.1 10 3/uLImmature Granulocytes Abs Auto0.050.00-0.03 10 3/uLPerforming Lab:see noteML - [facility] LBPROF 14(COMP METB) Reviewed date:10/29/2024 08:20:36 PM Interpretation: Performing Lab: Notes/Report: [facility] ,Kzqyvm002473-754 mmol/LPotassium4.13.5-5.1 mmol/RIuibvscu37670-568 mmol/LCarbon Iqusahg30.221.0-32.0 mmol/LAnion Gap10.6Kdlqygz01033-357 mg/dLBlood Urea Dezugusa94.07.0-18.0 mg/dLCreatinine1.780.70-1.30 mg/dLEstimated GFR ( Ockkmty54>=60 mL/min/1.73m 2Estimated GFR (Non- Ame37>=60 mL/min/1.73m 2 BUN Creatinine Ratio13.5Nhgwbny0.78.5-10.1 mg/dLBilirubin Total0.70.2-1.0 mg/dL Aspartate Amino Bdnglxhusdh3867-40 U/LAlanine Zpsxeutgaxizleqo3016-82 U/L Alkaline Xwwqcatxcte3571-468 U/LTotal Protein6.16.4-8.2 g/dLAlbumin Level2.83.4- 5.0 g/dLGlobulin3.3Albumin Globulin Ratio0.8Performing Lab:see note - [facility] LBProthrombin Time INR Reviewed date:10/29/2024 08:20:36 PM Interpretation: Performing Lab: Notes/Report: [facility] ,Prothrombin Time10.59.0-11.6 secINR0.99 DESIRED INR: 2.0-3.0 CONDITIONS NOT LISTED BELOW 2.5-3.5 FOR PROSTHETIC HEART VALVE REPLACEMENT 2.5-3.5 RECURRENT THROMBOSIS Performing Lab:see note - [facility] LBPROF CHEM 8 (BAS METB) Reviewed date:10/29/2024 08:20:36 PM Interpretation: Performing Lab: Notes/Report: [facility] ,Pkselp142685-174 mmol/LPotassium4.63.5-5.1 mmol/HPnjsiizr85159-631 mmol/LCarbon Ctykyjh17.021.0-32.0 mmol/LAnion Gap18.3Rxiixbz52134-756 mg/dLBlood Urea Dbaelnwo75.07.0-18.0 mg/dLCreatinine1.850.70-1.30 mg/dLEstimated GFR ( Ghgbjbo63>=60 mL/min/1.73m 2Estimated GFR (Non- Ame35>=60 mL/min/1.73m 2 BUN Creatinine Ratio16.7Tsyhfnz6.48.5-10.1 mg/dLPerforming Lab:see note - [facility] LBCBC no Diff (Hemogram) Reviewed date:10/29/2024 08:20:36 PM Interpretation: Performing Lab: Notes/Report: [facility] ,White Blood Count15.44.0-11.0 10 3/uLRed Blood Count3.724.70-6.10 10 6/uL Korgqgjnnn55.714.0-18.0 g/yANbejtaujtp66.542.0-54.0 %Mean Corpuscular Volume 103.580.0-94.0 fLMean Corpuscular Sbthpeclfx36.125.9-34.0 pgMean Corpuscular HGB Conc33.029.9-35.2 g/dLRed Cell Distribution Width14.111.0-15.0 %Platelet Count 934344-924 10 3/uLMean Platelet Wvwnla35.69.5-13.5 fLPerforming Lab:see noteML - [facility] LBType and Screen Reviewed date:10/29/2024 08:20:36 PM Interpretation: Performing Lab: Notes/Report: [facility] ,Blood TypeA PositiveAntibody ScreenNEGATIVECBC AUTO DIFF Reviewed date:10/30/2024 02:21:51 PM Interpretation: Performing Lab: Notes/Report: [facility] ,White Blood Count14.04.0-11.0 10 3/uLRed Blood Count3.404.70-6.10 10 6/uL Hppflvonim67.614.0-18.0 g/cVLlihcmuyrq16.342.0-54.0 %Mean Corpuscular Volume 103.880.0-94.0 fLMean Corpuscular Jvxvjxesck80.125.9-34.0 pgMean Corpuscular HGB Conc32.929.9-35.2 g/dLRed Cell Distribution Width14.611.0-15.0 %Platelet Count 011233-136 10 3/uLMean Platelet Hhtyee18.19.5-13.5 fLNeutrophils Percent Auto 79.143.0-75.0 %Lymphocytes Percent Auto9.420.5-60.0 %Monocytes Percent Auto9.9 1.7-12.0 %Eosinophils Percent Auto0.90.9-7.0 %Basophils Percent Auto0.20.2-2.0 % Immature Granulocytes Pct Auto0.50.0-0.5 %Neutrophils Absolute Auto11.11.4-6.5 10 3/uLLymphocytes Absolute Auto1.31.2-3.8 10 3/uLMonocytes Absolute Auto1.40.3- 0.8 10 3/uLEosinophils Absolute Auto0.10.0-0.7 10 3/uLBasophils Absolute Auto0.0 0.0-0.1 10 3/uLImmature Granulocytes Abs Auto0.070.00-0.03 10 3/uLPerforming Lab:see noteML - [facility] LBPROF CHEM 8 (BAS METB) Reviewed date:10/30/2024 02:21:51 PM Interpretation: Performing Lab: Notes/Report: [facility] ,Cqvirx663576-968 mmol/LPotassium4.33.5-5.1 mmol/ORjoflptr91626-516 mmol/LCarbon Nsyvpof18.321.0-32.0 mmol/LAnion Gap16.6Jxjwfoq09996-637 mg/dLBlood Urea Butgovfm25.07.0-18.0 mg/dLCreatinine1.870.70-1.30 mg/dLEstimated GFR ( Mdskvtu06>=60 mL/min/1.73m 2Estimated GFR (Non- Ame34>=60 mL/min/1.73m 2 BUN Creatinine Ratio19.3Ybglakw1.98.5-10.1 mg/dLPerforming Lab:see noteML - [facility] LBCBC AUTO DIFF Reviewed date:10/31/2024 12:23:54 PM Interpretation: Performing Lab: Notes/Report: [facility] ,White Blood Count11.94.0-11.0 10 3/uLRed Blood Count3.064.70-6.10 10 6/uL Fbpowukfit16.514.0-18.0 g/sVAmvknzidoh16.842.0-54.0 %Mean Corpuscular Volume 103.980.0-94.0 fLMean Corpuscular Ppdualnymo09.325.9-34.0 pgMean Corpuscular HGB Conc33.029.9-35.2 g/dLRed Cell Distribution Width14.611.0-15.0 %Platelet Count 784671-778 10 3/uLMean Platelet Wxlilc75.69.5-13.5 fLNeutrophils Percent Auto 74.643.0-75.0 %Lymphocytes Percent Auto10.820.5-60.0 %Monocytes Percent Auto11.8 1.7-12.0 %Eosinophils Percent Auto1.70.9-7.0 %Basophils Percent Auto0.30.2-2.0 % Immature Granulocytes Pct Auto0.80.0-0.5 %Neutrophils Absolute Auto8.91.4-6.5 10 3/uLLymphocytes Absolute Auto1.31.2-3.8 10 3/uLMonocytes Absolute Auto1.40.3- 0.8 10 3/uLEosinophils Absolute Auto0.20.0-0.7 10 3/uLBasophils Absolute Auto0.0 0.0-0.1 10 3/uLImmature Granulocytes Abs Auto0.090.00-0.03 10 3/uLPerforming Lab:see noteML - [facility] LBPROF CHEM 8 (BAS METB) Reviewed date:10/31/2024 12:23:54 PM Interpretation: Performing Lab: Notes/Report: [facility] ,Kusjwt688738-019 mmol/LPotassium4.63.5-5.1 mmol/AJzqtrwai02295-905 mmol/LCarbon Fzpfivy28.121.0-32.0 mmol/LAnion Gap15.2Ftsthfk94039-925 mg/dLBlood Urea Gwbzznmv30.07.0-18.0 mg/dLCreatinine1.690.70-1.30 mg/dLEstimated GFR ( Unkykia09>=60 mL/min/1.73m 2Estimated GFR (Non- Ame39>=60 mL/min/1.73m 2 BUN Creatinine Ratio17.8Oxekzam1.38.5-10.1 mg/dLPerforming Lab:see noteML - [facility] LBPROF CHEM 8 (BAS METB) Reviewed date:11/11/2024 08:52:42 PM Interpretation: Performing Lab: Notes/Report: [facility] ,Harpxl321827-113 mmol/LPotassium5.03.5-5.1 mmol/CEjzjeqgp25573-296 mmol/LCarbon Mbgunud92.821.0-32.0 mmol/LAnion Gap15.1Renvmhv07625-390 mg/dLBlood Urea Fqlwjyci99.07.0-18.0 mg/dLCreatinine1.650.70-1.30 mg/dLEstimated GFR ( Ozcmpjb28>=60 mL/min/1.73m 2Estimated GFR (Non- Ame40>=60 mL/min/1.73m 2 BUN Creatinine Ratio12.4Liaibkf7.78.5-10.1 mg/dLPerforming Lab:see noteML - [facility] LBALBUMIN Reviewed date:12/24/2024 11:26:08 AM Interpretation: Performing Lab: Notes/Report: [facility] ,Albumin Level3.33.4-5.0 g/dLPerforming Lab:see noteML - [facility] LBHEMOGLOBIN Reviewed date:12/24/2024 11:26:08 AM Interpretation: Performing Lab: Notes/Report: [facility] ,Evqjwfgwpp70.114.0-18.0 g/dLPerforming Lab:see noteML - [facility] LBMAGNESIUM Reviewed date:12/24/2024 11:26:08 AM Interpretation: Performing Lab: Notes/Report: [facility] ,Magnesium2.21.8-2.4 mg/dLPerforming Lab:see noteML - [facility] LB PHOSPHORUS Reviewed date:12/24/2024 11:26:08 AM Interpretation: Performing Lab: Notes/Report: [facility] ,Phosphorus3.72.6-4.7 mg/dLPerforming Lab:see noteML - [facility] LB PROF CHEM 8 (BAS METB) Reviewed date:12/24/2024 11:26:08 AM Interpretation: Performing Lab: Notes/Report: [facility] ,Urshcp416743-555 mmol/LPotassium4.63.5-5.1 mmol/AHwdtkvcp04662-253 mmol/LCarbon Xahnulk98.121.0-32.0 mmol/LAnion Gap13.2Hfdiogn50519-421 mg/dLBlood Urea Tozighoy45.07.0-18.0 mg/dLCreatinine1.570.70-1.30 mg/dLEstimated GFR ( Wusswfa01>=60 mL/min/1.73m 2Estimated GFR (Non- Ame42>=60 mL/min/1.73m 2 BUN Creatinine Ratio15.0Dkpiwso5.78.5-10.1 mg/dLPerforming Lab:see note - [facility] LBURINE T PROTEIN CREAT RATIO Reviewed date:12/24/2024 11:26:08 AM Interpretation: Performing Lab: Notes/Report: [facility] ,Total Protein Urine Oyudjp09.3<=11.9 mg/dLCreatinine Urine Fsjqjd14.4620.00- 300.00 mg/dLProtein Creatinine Ratio Urine0.27Performing Lab:see note - [facility] LBVITAMIN D 25 [place] Reviewed date:12/24/2024 11:26:08 AM Interpretation: Performing Lab: Notes/Report: [facility] ,Vitamin D19.7 <20 ng/mL Vit D deficient 20-<30 ng/mL Vit D insufficient 30-100 ng/mL Vit D sufficient >100 ng/mL Potential Toxicity Performing Lab:see note - [facility] LBCBC AUTO DIFF Reviewed date:01/18/2025 09:02:22 PM Interpretation: Performing Lab: Notes/Report: [facility] ,White Blood Count9.04.0-11.0 10 3/uLRed Blood Count3.864.70-6.10 10 6/uL Ezpqquafvh92.614.0-18.0 g/cKEtntuzgwzl22.442.0-54.0 %Mean Corpuscular Mycnsd37.9 80.0-94.0 fLMean Corpuscular Nlxgnwljzs10.125.9-34.0 pgMean Corpuscular HGB Conc 31.029.9-35.2 g/dLRed Cell Distribution Width16.011.0-15.0 %Platelet Snxox706 150-450 10 3/uLMean Platelet Glcnrw36.59.5-13.5 fLNeutrophils Percent Auto79.2 43.0-75.0 %Lymphocytes Percent Auto9.020.5-60.0 %Monocytes Percent Auto8.11.7- 12.0 %Eosinophils Percent Auto2.80.9-7.0 %Basophils Percent Auto0.60.2-2.0 % Immature Granulocytes Pct Auto0.30.0-0.5 %Neutrophils Absolute Auto7.11.4-6.5 10 3/uLLymphocytes Absolute Auto0.81.2-3.8 10 3/uLMonocytes Absolute Auto0.70.3- 0.8 10 3/uLEosinophils Absolute Auto0.30.0-0.7 10 3/uLBasophils Absolute Auto0.1 0.0-0.1 10 3/uLImmature Granulocytes Abs Auto0.030.00-0.03 10 3/uLPerforming Lab:see noteML - [facility] LBFREE T3 Reviewed date:01/18/2025 09:02:22 PM Interpretation: Performing Lab: Notes/Report: [facility] ,Free T32.152.18-3.98 pg/mLPerforming Lab:see noteML - [facility] LB PROF 14(COMP METB) Reviewed date:01/18/2025 09:02:22 PM Interpretation: Performing Lab: Notes/Report: [facility] ,Nzkoav257143-495 mmol/LPotassium4.53.5-5.1 mmol/EKsadnrrd07864-654 mmol/LCarbon Ohjxork51.521.0-32.0 mmol/LAnion Gap14.1Lmgngsy25747-734 mg/dLBlood Urea Qydblvtg30.07.0-18.0 mg/dLCreatinine1.600.70-1.30 mg/dLEstimated GFR ( Pjauhvq23>=60 mL/min/1.73m 2Estimated GFR (Non- Ame41>=60 mL/min/1.73m 2 BUN Creatinine Ratio18.3Osbuzsw0.98.5-10.1 mg/dLBilirubin Total0.30.2-1.0 mg/dL Aspartate Amino Sijbsfbhjop9615-03 U/LAlanine Ctnxhqapbkhdhiup9717-65 U/L Alkaline Fadcnxxmixh2618-295 U/LTotal Protein6.76.4-8.2 g/dLAlbumin Level3.33.4- 5.0 g/dLGlobulin3.4Albumin Globulin Ratio1.0Performing Lab:see noteML - [facility] LBT4 Reviewed date:01/18/2025 09:02:22 PM Interpretation: Performing Lab: Notes/Report: [facility] ,T4 Thyroxine7.004.50-12.10 ug/dLPerforming Lab:see noteML - [facility] LBTSH Reviewed date:01/18/2025 09:02:22 PM Interpretation: Performing Lab: Notes/Report: [facility] ,Thyroid Stimulating Hormone1.4720.358-3.740 uIU/mLPerforming Lab:see noteML - [facility] LBCBC AUTO DIFF Reviewed date:02/14/2025 07:52:08 PM Interpretation: Performing Lab: Notes/Report: [facility] ,White Blood Count8.14.0-11.0 10 3/uLRed Blood Count3.844.70-6.10 10 6/uL Djznfxroxh96.114.0-18.0 g/vSDqyofsozcf14.642.0-54.0 %Mean Corpuscular Xwawop04.1 80.0-94.0 fLMean Corpuscular Bwhkyccgee37.925.9-34.0 pgMean Corpuscular HGB Conc 32.129.9-35.2 g/dLRed Cell Distribution Width16.611.0-15.0 %Platelet Qtxuk114 150-450 10 3/uLMean Platelet Cafvva06.69.5-13.5 fLNeutrophils Percent Auto81.1 43.0-75.0 %Lymphocytes Percent Auto8.420.5-60.0 %Monocytes Percent Auto7.61.7- 12.0 %Eosinophils Percent Auto2.00.9-7.0 %Basophils Percent Auto0.40.2-2.0 % Immature Granulocytes Pct Auto0.50.0-0.5 %Neutrophils Absolute Auto6.61.4-6.5 10 3/uLLymphocytes Absolute Auto0.71.2-3.8 10 3/uLMonocytes Absolute Auto0.60.3- 0.8 10 3/uLEosinophils Absolute Auto0.20.0-0.7 10 3/uLBasophils Absolute Auto0.0 0.0-0.1 10 3/uLImmature Granulocytes Abs Auto0.040.00-0.03 10 3/uLPerforming Lab:see noteML - [facility] LBPROF 14(COMP METB) Reviewed date:02/14/2025 07:52:08 PM Interpretation: Performing Lab: Notes/Report: [facility] ,Tmrvxj861688-672 mmol/LPotassium4.33.5-5.1 mmol/BVnrvfxkv02390-827 mmol/LCarbon Vexpkkn97.021.0-32.0 mmol/LAnion Gap14.5Raqcnyk76877-099 mg/dLBlood Urea Dliazisg14.07.0-18.0 mg/dLCreatinine1.770.70-1.30 mg/dLEstimated GFR ( Tzgzpha56>=60 mL/min/1.73m 2Estimated GFR (Non- Ame37>=60 mL/min/1.73m 2 BUN Creatinine Ratio17.6Potghrk3.08.5-10.1 mg/dLBilirubin Total0.40.2-1.0 mg/dL Aspartate Amino Dkxktpsbriu4959-10 U/LAlanine Pdfsdzkyfpvomfpa1368-19 U/L Alkaline Sgndxistjjo8424-604 U/LTotal Protein6.96.4-8.2 g/dLAlbumin Level3.43.4- 5.0 g/dLGlobulin3.5Albumin Globulin Ratio1.0Performing Lab:see noteML - [facility] LBUA (CLEAN or CATCH) URANIUM PROCESSING SUPERVISOR or MICRO IF IND. Reviewed date:02/14/2025 07:52:08 PM Interpretation: Performing Lab: Notes/Report: [facility] ,Color UrineLT. YELLOWYELLOWClarity UrineCLEARCLEARSpecific [place] Urine1.010 1.005-1.025pH Urine7.05.0-9.0Protein UrineNEGATIVENEG/TRACE mg/dLGlucose Urine UA>=1000NEGATIVE mg/dLBilirubin UrineNEGATIVENEGATIVEKetones UrineNEGATIVE NEGATIVE mg/dLBlood UrineNEGATIVENEGATIVENitrite UrineNEGATIVENEGATIVE Urobilinogen Urine0.20.2-1.0 EU/dLLeukocyte Esterase UrineNEGATIVENEGATIVEUrine Microscopic IndicatedNOPerforming Lab:see noteML - [facility] LB Prothrombin Time INR Reviewed date:02/14/2025 07:52:08 PM Interpretation: Performing Lab: Notes/Report: [facility] ,Prothrombin Time10.79.0-11.6 secINR1.01 DESIRED INR: 2.0-3.0 CONDITIONS NOT LISTED BELOW 2.5-3.5 FOR PROSTHETIC HEART VALVE REPLACEMENT 2.5-3.5 RECURRENT THROMBOSIS Performing Lab:see noteML - [facility] LBECG 12 lead Reviewed date:02/14/2025 07:52:08 PM Interpretation: Performing Lab: Notes/Report: Source Facility: [place] [address] Electrocardiograph Report Signed Patient: NADIR HEREDIA MR#: [id number] : 1940 Acct:[id number] Age/Sex: 85 / M ADM Date: 02/14/25 Loc: MS 203-[address]: Van Sung M.D. Ordering Physician: Josie Astudillo Date of Service: 02/14/25 Procedure(s): ECG 12 lead Accession Number(s): [id number] cc: [facility] Test Date: 2025-02-14 Pat Name: NADIR HEREDIA Department: Room: - Gender: Male Adhesive Sprayer: : 1940 Requested By: [id number] Order Number: [id number] Reading MD: CLARIBEL PUGA M.D. Measurements Intervals [place] Rate: 75 P: -10774 DE: -86021 QRS: -60 QRSD: 100 T: 68 QT: 406 QTc: 435 Interpretive Statements 1210 Atrial fibrillation 3433 Septal myocardial infarction, probably old 7200 Abnormal left axis deviation 9150 abnormal ECG Compared to ECG 09/08/2024 12:03:04 Left-axis deviation now present Aberrant conduction of supraventricular beat(s) no longer present Electronically Signed On 02-14-2025 17:28:44 EDT by CLRAIBEL PUGA M.D. Dictated By: CLARIBEL PUGA Signed By: 02/14/25 1728 DD/ 1008 TD/TT: T[employer] Mounter:MR head/brain wo con Reviewed date:02/14/2025 07:52:09 PM Interpretation: Performing Lab: Notes/Report: Source Facility: [place] [address] Magnetic Resonance Report Signed Patient: NADIR HEREDIA MR#: [id number] : 1940 Acct:[id number] Age/Sex: 85 / M ADM Date: 02/14/25 Loc: MRI Attending Dr: Van Sung M.D. Ordering Physician: Van Sung M.D. Date of Service: 02/14/25 Procedure(s): MR head/brain wo con Accession Number(s): [id number] cc: Van Sung M.D. [place] [address] Patient Name: NADIR HEREDIA MRN: [id number] date: 1940 Sex: M Assigned Patient Location: MRI Current Patient Location: MRI Accession/Order Number: [id number] Exam Date: 02/14/2025 08:47 Report Date: 02/14/2025 [...] Radha Wright M.D.02/14/2025 9:20 AM Dictation Location: [place] [address] Electronically authenticated by: [id number] Y Date: 02/14/2025 09:20 Dictated By: Radha Wright M.D. Signed By: 02/14/25921 DD/ 9 TD/TT: T[employer] Mounter:CBC AUTO DIFF Reviewed date:02/15/2025 05:24:30 PM Interpretation: Performing Lab: Notes/Report: [facility] ,White Blood Count5.44.0-11.0 10 3/uLRed Blood Count3.544.70-6.10 10 6/uL Zjlosdfugb47.314.0-18.0 g/eZChojqqhrkq63.342.0-54.0 %Mean Corpuscular Ztthup03.4 80.0-94.0 fLMean Corpuscular Issxnyxsno14.125.9-34.0 pgMean Corpuscular HGB Conc 32.929.9-35.2 g/dLRed Cell Distribution Width16.511.0-15.0 %Platelet Dmfom344 150-450 10 3/uLMean Platelet Wamrlc90.89.5-13.5 fLNeutrophils Percent Auto65.9 43.0-75.0 %Lymphocytes Percent Auto15.720.5-60.0 %Monocytes Percent Auto13.51.7- 12.0 %Eosinophils Percent Auto4.10.9-7.0 %Basophils Percent Auto0.60.2-2.0 % Immature Granulocytes Pct Auto0.20.0-0.5 %Neutrophils Absolute Auto3.51.4-6.5 10 3/uLLymphocytes Absolute Auto0.81.2-3.8 10 3/uLMonocytes Absolute Auto0.70.3- 0.8 10 3/uLEosinophils Absolute Auto0.20.0-0.7 10 3/uLBasophils Absolute Auto0.0 0.0-0.1 10 3/uLImmature Granulocytes Abs Auto0.010.00-0.03 10 3/uLPerforming Lab:see note - [facility] LBPROF CHEM 8 (BAS METB) Reviewed date:02/15/2025 05:24:30 PM Interpretation: Performing Lab: Notes/Report: [facility] ,Fqbdnz961852-275 mmol/LPotassium3.83.5-5.1 mmol/GNusphasf97694-824 mmol/LCarbon Ojstvbw33.821.0-32.0 mmol/LAnion Gap15.9Zsxvzeh97666-162 mg/dLBlood Urea Xdjgfygd12.07.0-18.0 mg/dLCreatinine1.640.70-1.30 mg/dLEstimated GFR ( Matiezy52>=60 mL/min/1.73m 2Estimated GFR (Non- Ame40>=60 mL/min/1.73m 2 BUN Creatinine Ratio20.6Ucguyca1.98.5-10.1 mg/dLPerforming Lab:see note - [facility] LBBNP Reviewed date:03/08/2025 07:11:26 PM Interpretation: Performing Lab: Notes/Report: [facility] ,NT Pro B Type Natriuretic Lsdu4639.0<=1800.0 pg/mLRESULTS CALLED TO RAULITO ROBERTO RNPerforming Lab:see [facility] LBCBC AUTO DIFF Reviewed date:03/08/2025 07:11:26 PM Interpretation: Performing Lab: Notes/Report: [facility] ,White Blood Count7.84.0-11.0 10 3/uLRed Blood Count3.754.70-6.10 10 6/uL Rqfkiyuzdb20.414.0-18.0 g/qAMjaquxrqgj80.442.0-54.0 %Mean Corpuscular Ccdoff22.1 80.0-94.0 fLMean Corpuscular Taalqjtbql77.725.9-34.0 pgMean Corpuscular HGB Conc 31.129.9-35.2 g/dLRed Cell Distribution Width17.911.0-15.0 %Platelet Tqouo689 150-450 10 3/uLMean Platelet Doswih67.59.5-13.5 fLNeutrophils Percent Auto76.8 43.0-75.0 %Lymphocytes Percent Auto9.720.5-60.0 %Monocytes Percent Auto9.61.7- 12.0 %Eosinophils Percent Auto3.30.9-7.0 %Basophils Percent Auto0.50.2-2.0 % Immature Granulocytes Pct Auto0.10.0-0.5 %Neutrophils Absolute Auto6.01.4-6.5 10 3/uLLymphocytes Absolute Auto0.81.2-3.8 10 3/uLMonocytes Absolute Auto0.80.3- 0.8 10 3/uLEosinophils Absolute Auto0.30.0-0.7 10 3/uLBasophils Absolute Auto0.0 0.0-0.1 10 3/uLImmature Granulocytes Abs Auto0.010.00-0.03 10 3/uLPerforming Lab:see noteML - [facility] LBPROF CHEM 8 (BAS METB) Reviewed date:03/08/2025 07:11:26 PM Interpretation: Performing Lab: Notes/Report: [facility] ,Tqkgkk032283-562 mmol/LPotassium4.63.5-5.1 mmol/RKukkcbpy84204-163 mmol/LCarbon Gfqyceq78.421.0-32.0 mmol/LAnion Gap12.3Bfxbbvi06718-755 mg/dLBlood Urea Izkrqqhh12.07.0-18.0 mg/dLCreatinine1.790.70-1.30 mg/dLEstimated GFR ( Spwvjjv45>=60 mL/min/1.73m 2Estimated GFR (Non- Ame36>=60 mL/min/1.73m 2 BUN Creatinine Ratio13.7Cwgyorw1.98.5-10.1 mg/dLPerforming Lab:see noteML - [facility] LBTroponin I High Sensitivity Reviewed date:03/08/2025 07:11:26 PM Interpretation: Performing Lab: Notes/Report: [facility] ,Troponin I High Ycyaccdbdvc45.54.0-76.1 pg/mL CUT-OFF POINTS HAVE BEEN ESTABLISHED BASED ON THE FOURTH UNIVERSAL DEFINITION OF MYOCARDIAL INFARCTION. THE UPPER REFERENCE LIMIT (URL) OF TROPONIN, DEFINED THE 99TH PERCENTILE OF cTnI DISTRIBUTION IN A REFERENCE POPULATION, HAS BEEN CONFIRMED THE DECISION THRESHOLD FOR CT DIAGNOSIS. 99TH PERCENTILE = 76.2 PG/ML NOTE: HIGH-SENSITIVITY TROPONIN ASSAY IS NOT INTENDED TO BE USED IN ISOLATION BUT SHOULD BE INTERPRETED IN CONJUNCTION WITH OTHER DIAGNOSTIC AND CLINICAL INFORMATION. Performing Lab:see note - [facility] LBTroponin I High Sensitivity Reviewed date:03/08/2025 07:11:26 PM Interpretation: Performing Lab: Notes/Report: [facility] ,Troponin I High Mdrtxbeydog36.24.0-76.1 pg/mL CUT-OFF POINTS HAVE BEEN ESTABLISHED BASED ON THE FOURTH UNIVERSAL DEFINITION OF MYOCARDIAL INFARCTION. THE UPPER REFERENCE LIMIT (URL) OF TROPONIN, DEFINED THE 99TH PERCENTILE OF cTnI DISTRIBUTION IN A REFERENCE POPULATION, HAS BEEN CONFIRMED THE DECISION THRESHOLD FOR CT DIAGNOSIS. 99TH PERCENTILE = 76.2 PG/ML NOTE: HIGH-SENSITIVITY TROPONIN ASSAY IS NOT INTENDED TO BE USED IN ISOLATION BUT SHOULD BE INTERPRETED IN CONJUNCTION WITH OTHER DIAGNOSTIC AND CLINICAL INFORMATION. Performing Lab:see note - [facility] LBPROF CHEM 8 (BAS METB) Reviewed date:04/15/2025 04:42:40 PM Interpretation: Performing Lab: Notes/Report: [facility] ,Qmoevz093315-083 mmol/LPotassium4.53.5-5.1 mmol/OZnixgsqj88888-327 mmol/LCarbon Jvhtimt65.821.0-32.0 mmol/LAnion Gap17.7Fvmpjwg69106-549 mg/dLBlood Urea Ltoebnew92.07.0-18.0 mg/dLCreatinine1.800.70-1.30 mg/dLEstimated GFR ( Cvqphhl82>=60 mL/min/1.73m 2Estimated GFR (Non- Ame36>=60 mL/min/1.73m 2 BUN Creatinine Ratio17.1Zpmlzjn5.98.5-10.1 mg/dLPerforming Lab:see note - [facility] LBCBC AUTO DIFF Reviewed date:05/09/2025 09:23:04 PM Interpretation: Performing Lab: Notes/Report: [facility] ,White Blood Count8.14.0-11.0 10 3/uLRed Blood Count3.814.70-6.10 10 6/uL Tdffbepccu55.014.0-18.0 g/gJLvyrxupkbh92.042.0-54.0 %Mean Corpuscular Hsizwq56.0 80.0-94.0 fLMean Corpuscular Czlwfiolpp12.225.9-34.0 pgMean Corpuscular HGB Conc 31.329.9-35.2 g/dLRed Cell Distribution Width19.011.0-15.0 %Platelet Xgzqf963 150-450 10 3/uLMean Platelet Beqaqp10.29.5-13.5 fLNeutrophils Percent Auto77.8 43.0-75.0 %Lymphocytes Percent Auto8.620.5-60.0 %Monocytes Percent Auto11.31.7- 12.0 %Eosinophils Percent Auto1.20.9-7.0 %Basophils Percent Auto0.40.2-2.0 % Immature Granulocytes Pct Auto0.70.0-0.5 %Neutrophils Absolute Auto6.31.4-6.5 10 3/uLLymphocytes Absolute Auto0.71.2-3.8 10 3/uLMonocytes Absolute Auto0.90.3- 0.8 10 3/uLEosinophils Absolute Auto0.10.0-0.7 10 3/uLBasophils Absolute Auto0.0 0.0-0.1 10 3/uLImmature Granulocytes Abs Auto0.060.00-0.03 10 3/uLPerforming Lab:see noteML - [facility] LBPROF 14(COMP METB) Reviewed date:05/09/2025 09:23:04 PM Interpretation: Performing Lab: Notes/Report: [facility] ,Yvlgco654699-147 mmol/LPotassium4.93.5-5.1 mmol/IYkjkfdwu49480-585 mmol/LCarbon Pjggora39.821.0-32.0 mmol/LAnion Gap14.1Qiqrihk75604-860 mg/dLBlood Urea Qtzipkan83.07.0-18.0 mg/dLCreatinine1.800.70-1.30 mg/dLEstimated GFR ( Abibjwm90>=60 mL/min/1.73m 2Estimated GFR (Non- Ame36>=60 mL/min/1.73m 2 BUN Creatinine Ratio15.7Lvtthtn8.28.5-10.1 mg/dLBilirubin Total0.40.2-1.0 mg/dL Aspartate Amino Xwthftdcrfw7433-32 U/LAlanine Ptzybkfryamozneb4629-93 U/L Alkaline Gjhvpiffiep5949-950 U/LTotal Protein6.86.4-8.2 g/dLAlbumin Level2.93.4- 5.0 g/dLGlobulin3.9Albumin Globulin Ratio0.7Performing Lab:see note - [facility] LBUA (CLEAN or CATCH) URANIUM PROCESSING SUPERVISOR or MICRO IF IND. Reviewed date:05/09/2025 09:23:04 PM Interpretation: Performing Lab: Notes/Report: [facility] ,Color UrineLT. YELLOWYELLOWClarity UrineCLEARCLEARSpecific [place] Urine<=1.005 1.005-1.025pH Urine6.05.0-9.0Protein UrineNEGATIVENEG/TRACE mg/dLGlucose Urine UA>=1000NEGATIVE mg/dLBilirubin UrineNEGATIVENEGATIVEKetones UrineNEGATIVE NEGATIVE mg/dLBlood UrineNEGATIVENEGATIVENitrite UrineNEGATIVENEGATIVE Urobilinogen Urine0.20.2-1.0 EU/dLLeukocyte Esterase UrineNEGATIVENEGATIVEUrine Microscopic IndicatedNOPerforming Lab:see note - [facility] LB Troponin I High Sensitivity Reviewed date:05/09/2025 09:23:04 PM Interpretation: Performing Lab: Notes/Report: [facility] ,Troponin I High Rmdalmaryjk82.04.0-76.1 pg/mL CUT-OFF POINTS HAVE BEEN ESTABLISHED BASED ON THE FOURTH UNIVERSAL DEFINITION OF MYOCARDIAL INFARCTION. THE UPPER REFERENCE LIMIT (URL) OF TROPONIN, DEFINED THE 99TH PERCENTILE OF cTnI DISTRIBUTION IN A REFERENCE POPULATION, HAS BEEN CONFIRMED THE DECISION THRESHOLD FOR CT DIAGNOSIS. 99TH PERCENTILE = 76.2 PG/ML NOTE: HIGH-SENSITIVITY TROPONIN ASSAY IS NOT INTENDED TO BE USED IN ISOLATION BUT SHOULD BE INTERPRETED IN CONJUNCTION WITH OTHER DIAGNOSTIC AND CLINICAL INFORMATION. Performing Lab[facility] LBECG 12 lead Reviewed date:05/09/2025 09:23:04 PM Interpretation: Performing Lab: Notes/Report: Source Facility: [facility]-[address] [address] [facility] [address] [place] [address] Electrocardiograph Report Signed Patient: NADIR HEREDIA MR#: [id number] : 1940 Acct:[id number] Age/Sex: 85 / M ADM Date: 05/08/25 Loc: ER Attending Dr: Ordering Physician: Akhil Dobson M.D. Date of Service: 05/08/25 Procedure(s): ECG 12 lead Accession Number(s): [id number] cc: [facility] Test Date: 2025-05-08 Pat Name: NADIR HEREDIA Department: Room: - Gender: Male Adhesive Sprayer: : 1940 Requested By: 1030 Order Number: [id number] Reading MD: CLARIBEL PUGA M.D. Measurements Intervals [place] Rate: 70 P: -75425 DE: -56909 QRS: 66 QRSD: 94 T: 66 QT: 408 QTc: 429 Interpretive Statements 1210 Atrial fibrillation 3433 Septal myocardial infarction, probably old [address] depression, probably digitalis effect 9150 abnormal ECG Compared to ECG 03/08/2025 09:45:12 Aberrant conduction of supraventricular beat(s) no longer present Myocardial infarct finding still present ST (T wave) deviation still present Electronically Signed On 05-08-2025 22:01:26 EDT by CLARIBEL PUGA M.D. Dictated By: CLARIBEL PUGA Signed By: 05/08/252200 DD/ 1840 TD/TT: [employer] Mounter:CBC AUTO DIFF Reviewed date:05/09/2025 09:23:04 PM Interpretation: Performing Lab: Notes/Report: [facility] ,White Blood Count9.04.0-11.0 10 3/uLRed Blood Count3.764.70-6.10 10 6/uL Hemoglobin9.914.0-18.0 g/mFOckqbiocho47.642.0-54.0 %Mean Corpuscular Fxgpdt02.0 80.0-94.0 fLMean Corpuscular Uzodesnzar30.325.9-34.0 pgMean Corpuscular HGB Conc 31.329.9-35.2 g/dLRed Cell Distribution Width19.011.0-15.0 %Platelet Xsdfh085 150-450 10 3/uLMean Platelet Xpvcat15.49.5-13.5 fLNeutrophils Percent Auto74.5 43.0-75.0 %Lymphocytes Percent Auto10.220.5-60.0 %Monocytes Percent Auto12.91.7- 12.0 %Eosinophils Percent Auto1.40.9-7.0 %Basophils Percent Auto0.30.2-2.0 % Immature Granulocytes Pct Auto0.70.0-0.5 %Neutrophils Absolute Auto6.71.4-6.5 10 3/uLLymphocytes Absolute Auto0.91.2-3.8 10 3/uLMonocytes Absolute Auto1.20.3- 0.8 10 3/uLEosinophils Absolute Auto0.10.0-0.7 10 3/uLBasophils Absolute Auto0.0 0.0-0.1 10 3/uLImmature Granulocytes Abs Auto0.060.00-0.03 10 3/uLPerforming Lab:see noteML - [facility] LBMAGNESIUM Reviewed date:05/09/2025 09:23:04 PM Interpretation: Performing Lab: Notes/Report: [facility] ,Magnesium2.21.8-2.4 mg/dLPerforming Lab:see noteML - [facility] LB PROF CHEM 8 (BAS METB) Reviewed date:05/09/2025 09:23:04 PM Interpretation: Performing Lab: Notes/Report: [facility] ,Caqwlz808484-230 mmol/LPotassium4.03.5-5.1 mmol/MVmuayqht04555-154 mmol/LCarbon Atwtcdd76.521.0-32.0 mmol/LAnion Gap14.1Dhxongc79386-566 mg/dLBlood Urea Jcxdtqiv07.07.0-18.0 mg/dLCreatinine1.770.70-1.30 mg/dLEstimated GFR ( Gqrkasd69>=60 mL/min/1.73m 2Estimated GFR (Non- Ame37>=60 mL/min/1.73m 2 BUN Creatinine Ratio18.8Oycltqc3.38.5-10.1 mg/dLPerforming Lab:see noteML - [facility] LBCBC no Diff (Hemogram) Reviewed date:05/09/2025 09:23:04 PM Interpretation: Performing Lab: Notes/Report: [facility] ,White Blood Count10.04.0-11.0 10 3/uLRed Blood Count4.134.70-6.10 10 6/uL Vbgfcgmgee51.714.0-18.0 g/mENjssbqmjcx57.042.0-54.0 %Mean Corpuscular Dbwbxe01.3 80.0-94.0 fLMean Corpuscular Sqmirskrss47.925.9-34.0 pgMean Corpuscular HGB Conc 31.529.9-35.2 g/dLRed Cell Distribution Width19.011.0-15.0 %Platelet Wyzym928 150-450 10 3/uLMean Platelet Tdlprp96.99.5-13.5 fLPerforming Lab:see noteML - [facility] LBTroponin I High Sensitivity Reviewed date:05/09/2025 09:23:04 PM Interpretation: Performing Lab: Notes/Report: [facility] ,Troponin I High Eqcxbnnvtpd21.94.0-76.1 pg/mL CUT-OFF POINTS HAVE BEEN ESTABLISHED BASED ON THE FOURTH UNIVERSAL DEFINITION OF MYOCARDIAL INFARCTION. THE UPPER REFERENCE LIMIT (URL) OF TROPONIN, DEFINED THE 99TH PERCENTILE OF cTnI DISTRIBUTION IN A REFERENCE POPULATION, HAS BEEN CONFIRMED THE DECISION THRESHOLD FOR CT DIAGNOSIS. 99TH PERCENTILE = 76.2 PG/ML NOTE: HIGH-SENSITIVITY TROPONIN ASSAY IS NOT INTENDED TO BE USED IN ISOLATION BUT SHOULD BE INTERPRETED IN CONJUNCTION WITH OTHER DIAGNOSTIC AND CLINICAL INFORMATION. Performing Lab:see noteML - [facility] LBCA echo limited Reviewed date:05/09/2025 09:23:04 PM Interpretation: Performing Lab: Notes/Report: Source Facility: [facility]-[address] [place] [address] [place] [address] Cardiology Report Signed Patient: NADIR HEREDIA MR#: [id number] : 1940 Acct:[id number] Age/Sex: 85 / M ADM Date: 05/08/25 Loc: MS 215-[address]: Van Sung M.D. Ordering Physician: Toby Piedra M.D. Date of Service: 05/09/25 Procedure(s): CA echo limited Accession Number(s): [id number] cc: Toby Piedra M.D.; Van Sung M.D. Patient Name: NADIR HEREDIA MR#: [id number] : 1940 Exam Date: 05/09/2025 Ordering Doctor: TOBY PIEDRA ECHOCARDIOGRAM REPORT PROCEDURE: CA ECHO LIMITED [...] PUGA Signed By: 05/09/251920 DD/ 19 TD/TT: T[employer] Mounter:CT chest wo con Reviewed date:05/27/2025 04:12:29 PM Interpretation: Performing Lab: Notes/Report: Source Facility: [place] [address] CT Scan Report Signed Patient: NADIR HEREDIA MR#: [id number] : 1940 Acct:[id number] Age/Sex: 85 / M ADM Date: 05/25/25 Loc: CT Attending Dr: Van Sung M.D. Ordering Physician: Van Sung M.D. Date of Service: 05/25/25 Procedure(s): CT chest wo con Accession Number(s): [id number] cc: Van Sung M.D. [address] [place] [address] Patient Name: NADIR HEREDIA MRN: [id number] date: 1940 Sex: M Assigned Patient Location: CT Current Patient Location: CT Accession/Order Number: [id number] Exam Date: 05/25/2025 19:35 Report Date: 05/25/2025 19:38 At the request of: VAN SUNG MD Procedure: CT chest wo con [...] Doll M.D. 05/25/2025 7:38 PM Dictation Location: [place] [address] Electronically authenticated by: [id number] Y Date: 05/25/2025 19:38 Dictated By: Carlos Doll M.D. Signed By: 05/25/251940 DD/ 37 TD/TT: T[employer] Mounter:PROF TARA Faust ([facility]) Reviewed date:05/28/2025 06:07:27 PM Interpretation: Performing Lab: Notes/Report: [facility] ,Auzkjw909817-979 mmol/LPotassium4.83.5-5.1 mmol/BSoepevwv30059-745 mmol/LCarbon Mrzjawk30.921.0-32.0 mmol/LAnion Gap18.0Tevkhoj24418-606 mg/dLBlood Urea Eayjfhkk43.07.0-18.0 mg/dLCreatinine1.820.70-1.30 mg/dLEstimated GFR ( Epgivmz80>=60 mL/min/1.73m 2Estimated GFR (Non- Ame35>=60 mL/min/1.73m 2 BUN Creatinine Ratio17.8Vukfcga4.18.5-10.1 mg/dLPerforming Lab:see note - [facility] LBALBUMIN Reviewed date:07/18/2025 12:42:27 PM Interpretation: Performing Lab: Notes/Report: [facility] ,Albumin Level3.53.4-5.0 g/dLPerforming Lab:see [facility] LBGLYCOHEMOGLOBIN A1C Reviewed date:07/18/2025 12:42:27 PM Interpretation: Performing Lab: Notes/Report: [facility] ,Glycohemoglobin A1C8.04.5-6.2 % ADA RECOMMENDED LIMIT 4.0 - 6.0 ADA THERAPEUTIC TARGET < 7.0 ACTION SUGGESTED > 7.0 Estimated Average Uyqeqhi873Gefybpnqzw Lab:see note - [facility] LB HEMOGLOBIN Reviewed date:07/18/2025 12:42:27 PM Interpretation: Performing Lab: Notes/Report: [facility] ,Avgprbdnmy79.314.0-18.0 g/dLPerforming Lab:see [facility] LBLIPID PROFILE Reviewed date:07/18/2025 12:42:27 PM Interpretation: Performing Lab: Notes/Report: [facility] ,Wuykoqmtjavgk65<=150 mg/tANabkacvlmlv982<=200 mg/dLHDL Wspikrhuflw6173-43 mg/dL > or =60 mg/dl - LOW CARDIOVASCULAR RISK <40 mg/dl - HIGH CARDIOVASCULAR RISK LDL Cholesterol Csuzfqggmj531.0 <100 mg/dl OPTIMAL 100-129 mg/dl NEAR OR ABOVE OPTIMAL 130-159 mg/dl BORDERLINE HIGH 160-189 mg/dl HIGH >190 mg/dl VERY HIGH VLDL WFRYLMIWZJZ11.6Chol HDL Ratio2.4 3.3 - 4.4 LOW RISK 4.4 - 7.1 AVERAGE RISK 7.1 - 11.0 MODERATE RISK >11.0 HIGH RISK Performing Lab:[facility] LBLIVER PROFILE Reviewed date:07/18/2025 12:42:27 PM Interpretation: Performing Lab: Notes/Report: [facility] ,Bilirubin Total0.50.2-1.0 mg/dLBilirubin Direct0.10.0-0.2 mg/dLAspartate Amino Zomnbqzibnj0118-20 U/LAlanine Mpatkveowuvqbvum2742-12 U/LAlkaline Ixaqfaexzsn73 46-116 U/LTotal Protein7.86.4-8.2 g/dLAlbumin Level3.43.4-5.0 g/dLGlobulin4.4 Albumin Globulin Ratio0.8Performing Lab:see noteML - [facility] LB MAGNESIUM Reviewed date:07/18/2025 12:42:27 PM Interpretation: Performing Lab: Notes/Report: [facility] ,Magnesium1.91.8-2.4 mg/dLPerforming Lab:see noteML - [facility] LB PHOSPHORUS Reviewed date:07/18/2025 12:42:27 PM Interpretation: Performing Lab: Notes/Report: [facility] ,Phosphorus3.62.6-4.7 mg/dLPerforming Lab:see noteML - [facility] LB PROF CHEM 8 (BAS METB) Reviewed date:07/18/2025 12:42:27 PM Interpretation: Performing Lab: Notes/Report: [facility] ,Mybijx335922-354 mmol/LPotassium4.53.5-5.1 mmol/DBeqregzr33855-991 mmol/LCarbon Yucfsri91.721.0-32.0 mmol/LAnion Gap15.8Eauxozj61396-194 mg/dLBlood Urea Ogxmimzu86.07.0-18.0 mg/dLCreatinine1.670.70-1.30 mg/dLEstimated GFR ( Oyqsyps10>=60 mL/min/1.73m 2Estimated GFR (Non- Ame39>=60 mL/min/1.73m 2 BUN Creatinine Ratio23.6Bzkzmni6.38.5-10.1 mg/dLPerforming Lab:see noteML - [facility] LBURINE T PROTEIN CREAT RATIO Reviewed date:07/18/2025 12:42:27 PM Interpretation: Performing Lab: Notes/Report: [facility] ,Total Protein Urine Jwvdra68.0<=11.9 mg/dLCreatinine Urine Ptlvwb70.5420.00- 300.00 mg/dLProtein Creatinine Ratio Urine0.19Performing Lab:see noteML - [facility] LBVITAMIN D 25 [place] Reviewed date:07/18/2025 12:42:27 PM Interpretation: Performing Lab: Notes/Report: [facility] ,Vitamin D34.1 <20 ng/mL Vit D deficient 20-<30 ng/mL Vit D insufficient 30-100 ng/mL Vit D sufficient >100 ng/mL Potential Toxicity Performing Lab:see noteML - [facility] LBBKV Quant PCR Reviewed date:07/18/2025 08:32:26 PM Interpretation: Performing Lab: Notes/Report: [facility] ,BKV DNA, Quant PCR, PlasmaNegativeNegative IU/mL No BK DNA detected. The linear range of the assay is 22 - 100,000,000 IU/mL. Performed at: [address] [id number] [place]: Asael Pressley PhD, Phone: [phone] BKV DNA,PlasmaTNP.Performing Lab:[facility] LBCBC AUTO DIFF Reviewed date:05/28/2025 06:07:27 PM Interpretation: Performing Lab: Notes/Report: [facility] ,White Blood Count8.94.0-11.0 10 3/uLRed Blood Count3.694.70-6.10 10 6/uL Hemoglobin9.414.0-18.0 g/kGXgyayxxlrk52.842.0-54.0 %Mean Corpuscular Llntaq56.5 80.0-94.0 fLMean Corpuscular Uilezuhode58.525.9-34.0 pgMean Corpuscular HGB Conc 30.529.9-35.2 g/dLRed Cell Distribution Width19.911.0-15.0 %Platelet Rajrj384 150-450 10 3/uLMean Platelet Tmootg61.89.5-13.5 fLNeutrophils Percent Auto78.5 43.0-75.0 %Lymphocytes Percent Auto8.120.5-60.0 %Monocytes Percent Auto10.51.7- 12.0 %Eosinophils Percent Auto1.90.9-7.0 %Basophils Percent Auto0.70.2-2.0 % Immature Granulocytes Pct Auto0.30.0-0.5 %Neutrophils Absolute Auto7.01.4-6.5 10 3/uLLymphocytes Absolute Auto0.71.2-3.8 10 3/uLMonocytes Absolute Auto0.90.3- 0.8 10 3/uLEosinophils Absolute Auto0.20.0-0.7 10 3/uLBasophils Absolute Auto0.1 0.0-0.1 10 3/uLImmature Granulocytes Abs Auto0.030.00-0.03 10 3/uLPerforming Lab:see noteML - [facility] LBTroponin I High Sensitivity Reviewed date:05/09/2025 09:23:04 PM Interpretation: Performing Lab: Notes/Report: [facility] ,Troponin I High Iilmcgayhti29.44.0-76.1 pg/mL CUT-OFF POINTS HAVE BEEN ESTABLISHED BASED ON THE FOURTH UNIVERSAL DEFINITION OF MYOCARDIAL INFARCTION. THE UPPER REFERENCE LIMIT (URL) OF TROPONIN, DEFINED THE 99TH PERCENTILE OF cTnI DISTRIBUTION IN A REFERENCE POPULATION, HAS BEEN CONFIRMED THE DECISION THRESHOLD FOR CT DIAGNOSIS. 99TH PERCENTILE = 76.2 PG/ML NOTE: HIGH-SENSITIVITY TROPONIN ASSAY IS NOT INTENDED TO BE USED IN ISOLATION BUT SHOULD BE INTERPRETED IN CONJUNCTION WITH OTHER DIAGNOSTIC AND CLINICAL INFORMATION. Performing Lab:see noteML - [facility] LBPROF CHEM 8 (BAS METB) Reviewed date:05/09/2025 09:23:04 PM Interpretation: Performing Lab: Notes/Report: [facility] ,Mskcxr769433-351 mmol/LPotassium4.73.5-5.1 mmol/VIskvrafc65409-987 mmol/LCarbon Ykgzdyo06.221.0-32.0 mmol/LAnion Gap12.2Lpnsmhg40370-400 mg/dLBlood Urea Ouuultyv31.07.0-18.0 mg/dLCreatinine1.900.70-1.30 mg/dLEstimated GFR ( Vqymuki98>=60 mL/min/1.73m 2Estimated GFR (Non- Ame34>=60 mL/min/1.73m 2 BUN Creatinine Ratio15.3Gwijkbc6.08.5-10.1 mg/dLPerforming Lab:see note - [facility] LBBNP Reviewed date:05/09/2025 09:23:04 PM Interpretation: Performing Lab: Notes/Report: [facility] ,NT Pro B Type Natriuretic Mzzw5853.0<=1800.0 pg/mLRESULTS CALLED TO DR. NASH CARABALLO at 1926Performing Lab:see note - [facility] LBECG 12 lead Reviewed date:03/08/2025 08:58:48 PM Interpretation: Performing Lab: Notes/Report: Source Facility: [facility]-[address] [place] [address] Electrocardiograph Report Signed Patient: NADIR HEREDIA MR#: [id number] : 1940 Acct:[id number] Age/Sex: 85 / M ADM Date: 03/08/25 Loc: ER Attending Dr: Ordering Physician: Akhil Dobson M.D. Date of Service: 03/08/25 Procedure(s): ECG 12 lead Accession Number(s): [id number] cc: [facility] Test Date: 2025-03-08 Pat Name: NADIR HEREDIA Department: Room: - Gender: Male [employer]hesive Sprayer: : 1940 Requested By: [id number] Order Number: [id number] Reading MD: CLARIBEL PUGA M.D. Measurements Intervals [place] Rate: 70 P: -93510 DE: -33230 QRS: 48 QRSD: 100 T: 26 QT: 414 QTc: 435 Interpretive Statements 06582 Atrial fibrillation with aberrant conduction, or ventricular premature complexes 3113 Cannot rule out anterior myocardial infarction, probably old [address] depression, probably digitalis effect 9150 abnormal ECG Compared to ECG 02/14/2025 10:08:55 Ventricular premature complex(es) now present Aberrant conduction of supraventricular beat(s) now present Electronically Signed On 03-08-2025 20:43:48 EDT by CLARIBEL PUGA M.D. Dictated By: CLARIBEL PUGA Signed By: 03/08/252042 DD/ 4 TD/TT: [employer]:PROF TARA Faust (BAS MET) Reviewed date:02/18/2025 03:43:48 PM Interpretation: Performing Lab: Notes/Report: [facility] ,Vvqndf603837-413 mmol/LPotassium4.43.5-5.1 mmol/SOmvcnrnc24823-483 mmol/LCarbon Jdxhgvb33.721.0-32.0 mmol/LAnion Gap12.3Cghdite08897-779 mg/dLBlood Urea Wtvqeows31.07.0-18.0 mg/dLCreatinine1.710.70-1.30 mg/dLEstimated GFR ( Rgxqgol88>=60 mL/min/1.73m 2Estimated GFR (Non- Ame38>=60 mL/min/1.73m 2 BUN Creatinine Ratio21.3Bvkpnyz3.08.5-10.1 mg/dLPerforming Lab:see noteML - [facility] LBCBC AUTO DIFF Reviewed date:02/18/2025 03:43:48 PM Interpretation: Performing Lab: Notes/Report: [facility] ,White Blood Count8.24.0-11.0 10 3/uLRed Blood Count3.984.70-6.10 10 6/uL Nzglqjzfam88.314.0-18.0 g/aMTegrbuhxga17.542.0-54.0 %Mean Corpuscular Xdxowc27.2 80.0-94.0 fLMean Corpuscular Vhcpbjffpt49.425.9-34.0 pgMean Corpuscular HGB Conc 31.829.9-35.2 g/dLRed Cell Distribution Width16.911.0-15.0 %Platelet Ricjo958 150-450 10 3/uLMean Platelet Zwlcan51.49.5-13.5 fLNeutrophils Percent Auto75.2 43.0-75.0 %Lymphocytes Percent Auto9.320.5-60.0 %Monocytes Percent Auto12.01.7- 12.0 %Eosinophils Percent Auto2.80.9-7.0 %Basophils Percent Auto0.50.2-2.0 % Immature Granulocytes Pct Auto0.20.0-0.5 %Neutrophils Absolute Auto6.21.4-6.5 10 3/uLLymphocytes Absolute Auto0.81.2-3.8 10 3/uLMonocytes Absolute Auto1.00.3- 0.8 10 3/uLEosinophils Absolute Auto0.20.0-0.7 10 3/uLBasophils Absolute Auto0.0 0.0-0.1 10 3/uLImmature Granulocytes Abs Auto0.020.00-0.03 10 3/uLPerforming Lab:see noteML - [facility] LBCA echo doppler complete Reviewed date:02/15/2025 05:24:30 PM Interpretation: Performing Lab: Notes/Report: Source Facility: [place] [address] Cardiology Report Signed Patient: NADIR HEREDIA MR#: [id number] : 1940 Acct:[id number] Age/Sex: 85 / M ADM Date: 02/14/25 Loc: MS 203-[address]: Van Sung M.D. Ordering Physician: Van Sung M.D. Date of Service: 02/15/25 Procedure(s): CA echo doppler complete Accession Number(s): [id number] cc: Van Sung M.D. Patient Name: NADIR HEREDIA MR#: [id number] : 1940 Exam Date: 02/15/2025 Ordering Doctor: [...] Signed By: 02/15/25 1632 DD/ 1631 TD/TT: Tire Mounter:Troponin I High Sensitivity Reviewed date:02/14/2025 07:52:08 PM Interpretation: Performing Lab: Notes/Report: [facility] ,Troponin I High Lnrmtknfrkk75.24.0-76.1 pg/mL CUT-OFF POINTS HAVE BEEN ESTABLISHED BASED ON THE FOURTH UNIVERSAL DEFINITION OF MYOCARDIAL INFARCTION. THE UPPER REFERENCE LIMIT (URL) OF TROPONIN, DEFINED THE 99TH PERCENTILE OF cTnI DISTRIBUTION IN A REFERENCE POPULATION, HAS BEEN CONFIRMED THE DECISION THRESHOLD FOR CT DIAGNOSIS. 99TH PERCENTILE = 76.2 PG/ML NOTE: HIGH-SENSITIVITY TROPONIN ASSAY IS NOT INTENDED TO BE USED IN ISOLATION BUT SHOULD BE INTERPRETED IN CONJUNCTION WITH OTHER DIAGNOSTIC AND CLINICAL INFORMATION. Performing Lab:see noteML - [facility] LBMAGNESIUM Reviewed date:02/14/2025 07:52:08 PM Interpretation: Performing Lab: Notes/Report: [facility] ,Magnesium2.01.8-2.4 mg/dLPerforming Lab:see noteML - [facility] LB GLYCOHEMOGLOBIN A1C Reviewed date:02/14/2025 07:52:08 PM Interpretation: Performing Lab: Notes/Report: [facility] ,Glycohemoglobin A1C11.14.5-6.2 % ADA RECOMMENDED LIMIT 4.0 - 6.0 ADA THERAPEUTIC TARGET < 7.0 ACTION SUGGESTED > 7.0 Estimated Average Fvllgbx945Cguhgtbcae Lab:see noteML - [facility] LB DIRECT LDL Reviewed date:02/14/2025 07:52:08 PM Interpretation: Performing Lab: Notes/Report: [facility] ,LDL Cholesterol Keivhc623 <100 mg/dl OPTIMAL 100-129 mg/dl NEAR OR ABOVE OPTIMAL 130-159 mg/dl BORDERLINE HIGH 160-189 mg/dl HIGH >190 mg/dl VERY HIGH Performing Lab:see note - [facility] LBBNP Reviewed date:02/14/2025 07:52:08 PM Interpretation: Performing Lab: Notes/Report: [facility] ,NT Pro B Type Natriuretic Wwip6998.0<=1800.0 pg/mLPerforming Lab:see note - [facility] LBLower Respiratory Culture Reviewed date:01/25/2025 07:33:24 PM Interpretation: Performing Lab: Notes/Report: [facility] ,Lower Respiratory CultureSee Below For Report Lower Respiratory Culture WILL FOLLOW Lower Respiratory CultureRoutine respiratory shreya Lower Respiratory Culture WILL FOLLOW Lower Respiratory CulturePerformed at: - [facility] [place] Lower Respiratory Culture WILL FOLLOW Lower Respiratory [address] [place], [place] [address] Lower Respiratory Culture WILL FOLLOW Lower Respiratory CultureLab Director: Asael Pressley PhD, Phone: [phone] Lower Respiratory Culture WILL FOLLOW Performing Lab:see note LC - [facility] LB SEE REPORT - Padder Id information not found for OBX-specific executive producer promos legend Gram Stain Evaluation Reviewed date:01/25/2025 07:33:24 PM Interpretation: Performing Lab: Notes/Report: [facility] ,Gram Stain EvaluationSee Below For Report Gram Stain Evaluation This specimen is of good quality and is acceptable for routine Gram Stain Evaluationbacterial culture. 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 Result 3 *ABNORMAL* Performing Lab:see noteLC - [facility] LBResult 2 Reviewed date:01/25/2025 07:33:24 PM Interpretation: Performing Lab: Notes/Report: [facility] ,Result 2See Below For Report Result 2 Rare gram positive rods Performing Lab:see noteLC - [facility] LBResult 1 Reviewed date:01/25/2025 07:33:24 PM Interpretation: Performing Lab: Notes/Report: [facility] ,Result 1See Below For Report Result 1 Few gram positive cocci Performing Lab:see noteLC - [facility] LBEpithelial Cells Reviewed date:01/25/2025 07:33:24 PM Interpretation: Performing Lab: Notes/Report: [facility] ,Epithelial CellsSee Below For Report Epithelial Cells Few Performing Lab:see noteLC - [facility] LBWhite Blood Cells Reviewed date:01/25/2025 07:33:24 PM Interpretation: Performing Lab: Notes/Report: [facility] ,White Blood CellsSee Below For Report White Blood Cells White Blood CellsNone seen White Blood Cells Performing Lab:see noteLC - [facility] LBXR chest 1V Reviewed date:09/10/2024 09:12:18 PM Interpretation: Performing Lab: Notes/Report: Source Facility: [place] [address] [place] [address] XRay Report Signed Patient: NADIR HEREDIA MR#: [id number] : 1940 Acct:[id number] Age/Sex: 84 / M ADM Date: 09/08/24 Loc: ER Attending Dr: Ordering Physician: Akhil Dobson M.D. Date of Service: 09/08/24 Procedure(s): XR chest 1V Accession Number(s): [id number] cc: Van Sung M.D.; Akhil Dobson M.D. [facility] [place] [id number] Patient Name: NADIR HEREDIA MRN: [id number] date: 1940 Sex: M Assigned Patient Location: ER Current Patient Location: ER Accession/Order Number: [id number] Exam Date: 09/08/2024 12:18 Report Date: 09/08/2024 [...] Signed By: 09/08/24 1303 DD/ 1301 TD/TT: Tire Mounter:Troponin I High Sensitivity Reviewed date:09/08/2024 12:39:03 PM Interpretation: Performing Lab: Notes/Report: [facility] ,Troponin I High Qvxgapuktxb45.84.0-76.1 pg/mL CUT-OFF POINTS HAVE BEEN ESTABLISHED BASED ON THE FOURTH UNIVERSAL DEFINITION OF MYOCARDIAL INFARCTION. THE UPPER REFERENCE LIMIT (URL) OF TROPONIN, DEFINED THE 99TH PERCENTILE OF cTnI DISTRIBUTION IN A REFERENCE POPULATION, HAS BEEN CONFIRMED THE DECISION THRESHOLD FOR CT DIAGNOSIS. 99TH PERCENTILE = 76.2 PG/ML NOTE: HIGH-SENSITIVITY TROPONIN ASSAY IS NOT INTENDED TO BE USED IN ISOLATION BUT SHOULD BE INTERPRETED IN CONJUNCTION WITH OTHER DIAGNOSTIC AND CLINICAL INFORMATION. Performing Lab:see noteML - [facility] LBPROF CHEM 8 (BAS METB) Reviewed date:09/08/2024 12:39:03 PM Interpretation: Performing Lab: Notes/Report: [facility] ,Wtsajg562047-299 mmol/LPotassium4.83.5-5.1 mmol/XHzrkcwgc41160-943 mmol/LCarbon Sqgwwyj13.621.0-32.0 mmol/LAnion Gap16.4Cxjgfhn42008-322 mg/dLBlood Urea Udatudxh25.07.0-18.0 mg/dLCreatinine1.590.70-1.30 mg/dLEstimated GFR ( Vvegiwt01>=60 mL/min/1.73m 2Estimated GFR (Non- Ame42>=60 mL/min/1.73m 2 BUN Creatinine Ratio15.8Stjlsxp3.08.5-10.1 mg/dLPerforming Lab:see noteML - [facility] LBUA DIP NONAUTO WO MICRO (02688) - IN OFFICE Reviewed date:01/24/2025 06:29:49 PM Interpretation: Performing Lab: Notes/Report: COLORyellowCLARITYclearGLUCOSELARGEBILIRUBINnegKETONEnegSPECIFIC GRAVITY1.010 IBVHTTNTGNEI5BTFAXCMPISHKAMIICOJDONUKxypAPOVXUEmxlAUQBBLKIG ESTERASEneg Reason For Referral No Information Medications Medication SIG (Take, Route, Frequency, Duration) Notes Start Date End Date Status Align Prebiotic-Probiotic 5-1.25 MG-GM 1 capsule Orally once daily ActiveOmeprazole 20 MGTAKE 2 CAPSULES BY MOUTH DAILY; Duration: 90Active ALPRAZolam 0.25 MG1 tablet F41.9 Orally Twice a day08/15/2024ctiveOndansetron 4 MG1 tablet on the tongue and allow to dissolve Orally Q 6 hours PRN; Duration: ctiveAspirin 81 81 MG1 tablet Orally Once a dayActivePioglitazone HCl 45 MG1 tablet Orally Once a day; Duration: 30 daysActiveBlood Glucose Test StripActivePrimidone 50 MG1 tablet Orally twice a day; Duration: 30 daysActive Labetalol HCl 300 MGTAKE 1 TABLET BY MOUTH 3 TIMES DAILY; Duration: 90Active Tradjenta 5 MG1 tablet Orally Once a day; Duration: 30 days5ActiveLasix 40 MG1 tablet Orally bid; Duration: 90 daysActiveVitamin D 25 MCG (1000 UT)1 tablet Orally Once a day; Duration: 07/30/2025tiveAlbuterol Sulfate (2.5 MG/3ML) 0.083%3 mL as needed Inhalation every 6 hrsActivemetFORMIN HCl 1000 MG1 tablet with a meal Orally twice a day; Duration: daysActiveXarelto 15 MG 1 tablet with food Orally Once a day; Duration: 30 ActiveAldactone 25 MG1 tablet Orally Once a day; Duration: 3ActiveMetoclopramide HCl 5 MGTAKE 1 TABLET BY MOUTH AT BEDTIME; Duration: ActiveBreo Ellipta 100-25 MCG/ACT1 puff Inhalation Once a day; Duration: 07/31/2025tiveSpiriva Respimat 1.25 MCG/ACT 2 puffs Inhalation Once a day; Duration: 30 days 1 inhaler each ActiveCetirizine HCl 10 MG1 tablet Orally Twice a day; Duration: 30 Active cloNIDine HCl 0.1 MG2 tablets Orally bid; Duration: ActiveCefdinir 300 MG 2 capsule Orally once a day; Duration: 08/29/2025tiveSymbicort 80-4.5 MCG/ACT2 puffs Inhalation Once a dayActiveKlor-Con M20 20 MEQTAKE 1 TABLET BY MOUTH TWICE A DAY; Duration: ActiveTamsulosin HCl 0.4 MGTAKE 1 CAPSULE BY MOUTH DAILY; Duration: ActiveEzetimibe 10 MGTAKE 1 TABLET BY MOUTH ONCE DAILY; Duration: ActiveFerrous Sulfate 325 (65 Fe) MG1 tablet Orally Once a day ActiveFreeStyle Ron 2 Sensor -used to monitor blood sugar dx E11.9; Duration: 07/13/2025tiveGlimepiride 4 MGTAKE 2 TABLETS BY MOUTH EVERY DAY; Duration: daysActiveCyanocobalamin 1000 MCG/ML1 mL Injection once monthly; Duration: 08/23/2025tiveDiabetic Shoe -- DailyActiveDicyclomine HCl 10 MG2 capsules Orally Three times a day; Duration: 90 daysActiveEscitalopram Oxalate 5 MGTAKE 1 TABLET BY MOUTH EVERY DAY FOR 30 DAYS; Duration: Active Januvia 100 MG1 tablet Orally Once a day; Duration: 02/13/2025tive Jardiance 25 MG1 tablet Orally Once a day; Duration: 90 daysActivelevoFLOXacin 750 MG1 tablet Orally Once a day; Duration: 10 days5Active Immunizations Vaccine Route Administration Date Status Comme nts Flu, Fluad (4148-1631) (00015) 65 yrs+, single-dose syringe IM Intramuscular 08/20/2023 Administered Flu, Fluad (03101) 65 yrs and older, single-dose syringe (6498-1077)IM Thkepqjskayoz63/09/2024AdministeredFlu, Fluad (84850) 65 yrs and older, single- dose syringe (1884-1018)IM Esoplfivcwhnu41/15/2025dministered Social History Tobacco Use: Social History Observation Description Date Details (start date - stop date) Former Smoker NA - NA Tobacco Use/Smoking Question Answer Notes Patient is a former smoker Alcohol Screen (Audit-C) Question Answer Notes Did you have a drink containing alcohol in the p ast year? No Ycrddt6PbnjhghiaflzbgEoxqesjyWEWTA-A (Standard) Question Answer Notes Did you have a drink containing alcohol in the p ast year? 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 (638843131227000)Atherosclerotic heart disease of [place] coronary artery without angina pectoris (I25.10)Active confirmedProblemAortic valve disorder (2431861)Nonrheumatic aortic (valve) stenosis (I35.0)ActiveconfirmedProblemAortic valve disorder (8992968)Other nonrheumatic aortic valve disorders (I35.8)ActiveconfirmedProblemAcute diastolic heart failure (333439887)Acute diastolic (congestive) heart failure (I50.31) ActiveconfirmedProblemAcute combined systolic and diastolic heart failure (489907815919218)Acute combined systolic (congestive) and diastolic (congestive) heart failure (I50.41)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 (270519097417669)Chronic combined systolic (congestive) and diastolic (congestive) heart failure (I50.42)ActiveconfirmedProblemPolyp of colon (87336246)Polyp of colon (K63.5)ActiveconfirmedProblemChronic kidney disease stage 3 (disorder) (565218418)Chronic kidney disease, stage 3 (moderate) (N18.3)ActiveconfirmedProblemBalanitis (92817588)Balanitis (N48.1)Active confirmedProblemBradycardia (94041503)Bradycardia, unspecified (R00.1)Active confirmedProblemShortness of breath (764464394)Shortness of breath (R06.02) ActiveconfirmedProblemBlister of ankle without infection (04089744)Blister (nonthermal), unspecified lower leg, initial encounter (S80.829A)Activeconfirmed ProblemAtrial fibrillation (11187851)Atrial fibrillation (I48.91)Activeconfirmed ProblemHyperlipidemia (62089828)Hyperlipidemia (E78.5)ActiveconfirmedProblem Aortic regurgitation (79536251)Aortic regurgitation (I35.1)Activeconfirmed ProblemHypertension (55152673)Hypertension (I10)ActiveconfirmedProblemCongestive heart failure (08985068)CHF (congestive heart failure) (I50.9)Activeconfirmed ProblemAsthma (735233853)Asthma (J45.909)ActiveconfirmedProblemCervical radiculopathy (38202273)Cervical radiculopathy (M54.12)ActiveconfirmedProblem Tricuspid regurgitation (856920374)Tricuspid regurgitation (I07.1)Active confirmedProblemAortic valve disorder (2282808)Aortic stenosis (I35.0)Active confirmedProblemAtrial fibrillation (disorder) (54191774)Afib (I48.91)Active confirmedProblemHypertension (60841286)HTN (hypertension) (I10)Activeconfirmed ProblemEdema (83235465)Edema (R60.9)ActiveconfirmedProblemDM - Diabetes mellitus (78519723)DM (diabetes mellitus) (E11.9)ActiveconfirmedProblemDepression (255049113)Depression (F32.9)ActiveconfirmedProblemPeripheral neuropathy (764784123)Peripheral neuropathy (G62.9)ActiveconfirmedProblemVitamin B12 deficiency (091604087)Vitamin B12 deficiency (E53.8)ActiveconfirmedProblemSleep apnea (96525192)Sleep apnea (G47.30)ActiveconfirmedProblemCVA - Cerebrovascular accident (107303933)CVA (cerebral vascular accident) (I63.9)Activeconfirmed ProblemOsteoarthritis of knee (478228514)Osteoarthritis of knee (M17.9)Active confirmedProblemCongestive heart failure (54684071)Congestive heart failure (I50.9)ActiveconfirmedProblemMigraine (58129446)Migraine (G43.909)Active confirmedProblemIrritable bowel syndrome (99117170)IBS (irritable bowel syndrome) (K58.9)ActiveconfirmedProblemPeptic ulcer (80914983)Peptic ulcer (K27.9)ActiveconfirmedProblemGeneralized anxiety disorder (78900392)MERA (generalized anxiety disorder) (F41.1)ActiveconfirmedProblemDiabetes mellitus type 2 (disorder) (86824435)DM2 (diabetes mellitus, type 2) (E11.9)Active confirmedProblemAcute bronchitis (25239159)Acute bronchitis (J20.9)Active confirmedProblemCervical spondylosis with myelopathy (M47.12)Activeconfirmed ProblemPulmonary edema (39435864)Pulmonary edema (J81.1)ActiveconfirmedProblem Diverticulitis (38002054)Diverticulitis (K57.92)ActiveconfirmedProblemDiabetic neuropathy (083391950)Diabetic neuropathy (E11.40)ActiveconfirmedProblemAcute systolic heart failure (688881840)Acute systolic heart failure (I50.21)Active confirmedProblemBenign prostatic hyperplasia (638787518)Benign prostatic hyperplasia (N40.0)ActiveconfirmedProblemDyshidrotic eczema (203254050) Dyshidrotic eczema (L30.1)ActiveconfirmedProblemIron deficiency anemia (30123596)Anemia, iron deficiency (D50.9)ActiveconfirmedProblemVentricular hypertrophy (217192831)Ventricular hypertrophy (I51.7)ActiveconfirmedProblem Hemorrhoid (67665567)Hemorrhoid (K64.9)ActiveconfirmedProblemLabyrinthitis (15820408)Labyrinthitis (H83.09)ActiveconfirmedProblemAltered mental status (232343644)Altered mental status (R41.82)ActiveconfirmedProblemLiver mass (382770206)Liver mass (R16.0)ActiveconfirmedProblemElectrolyte imbalance (478091576)Electrolyte imbalance (E87.8)ActiveconfirmedProblemAltered mental status (626893690)Altered mental state (R41.82)ActiveconfirmedProblemFoot callus (655566939)Foot callus (L84)ActiveconfirmedProblemLeft lower lobe pneumonia (947159079)Left lower lobe pneumonia (J18.9)ActiveconfirmedProblem Dermatochalasis (844200795)Dermatochalasis (H02.839)ActiveconfirmedProblemAcute diastolic heart failure (807618242)Acute diastolic heart failure (I50.31)Active confirmedProblemLentigo maligna (31048808)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 ProblemUrinary tract obstruction (4288958)Urinary obstruction (N13.9)Active confirmedProblemCardiomegaly (7611655)Atrial enlargement, left (I51.7)Active confirmedProblemGeneralized anxiety disorder (65681232)Anxiety neurosis (F41.1) ActiveconfirmedProblemTubulovillous adenoma of colon (9179059005)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 hypertension (29056839) Essential Hypertension (I10)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 ProblemEssential hypertension (23255778)BP (high blood pressure) (I10)Active confirmedProblemHistory of cardioversion (78705596195201)History of cardioversion (Z98.890)ActiveconfirmedProblemDegenerative disorder of macula (877183204)Macular degeneration, 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)ActiveconfirmedProblemDeep vein thrombosis (DVT) of non-extremity vein, unspecified chronicity (I82.90) ActiveconfirmedProblemChronic kidney disease stage 2 (046837393)Chronic kidney disease (CKD), stage 2 (mild) (N18.2)ActiveconfirmedProblemPulmonary hypertension (69830070)Pulmonary hypertension (I27.20)ActiveconfirmedProblemLump in right breast (61444957216443999)Unspecified lump in the right breast, unspecified quadrant (N63.10)ActiveconfirmedProblemAbrasion of skin (00823645) Skin abrasion (T14.8XXA)ActiveconfirmedProblemLiver function tests abnormal (955796437)Liver function test abnormality (R94.5)ActiveconfirmedProblemType II diabetes mellitus without complication (718170556)Diabetes (E11.9)Active confirmedProblemMyocardial infarct (93565303)Myocardial infarct (I21.9)Active confirmedProblemDiabetes mellitus (63564266)Diabetes mellitus (E11.9)Active confirmedProblemResting tremor (58920643)Resting tremor (G25.2)Activeconfirmed ProblemCOVID-19 (029731698)COVID-19 (U07.1)ActiveconfirmedProblemChronic kidney disease stage 3 (disorder) (858951916)Chronic kidney disease, stage 3 unspecified (N18.30)ActiveconfirmedProblemCardiomegaly (7987588)Atrial enlargement, right (I51.7)ActiveconfirmedProblemPericardial effusion - noninflammatory (disorder) (216665879)Other pericardial effusion (noninflammatory) (I31.39)Activeconfirmed Vital Signs Oximetry 90 % 04/06/2025 Blood pressure mm Hg08/29/20256152Fvwarg08 in08/29/2025lood pressure bmefqniy962 mm Hg08/29/20256889Zfsqpl964.6 lbs1MI25.48 kg/m208/29/2025 Encounters Encounter Location Date Provider Diagnosis [address] [address] 01/18/2025 Erik Hoy Urinary frequency R3 5.0 ; Edema R60.9 ; Essential Hypertension I10 and Diabetes mellitus E11.[address] [address] 03/26/2025 Erik Hoy Vitamin B12 deficien cy E53.[address] [address] 11/17/2024 Erik Hoy Vitamin B12 deficien cy E53.[address] [address] 12/18/2024 Erik Hoy Vitamin B12 deficien cy E53.[address] [address] 01/15/2025 Erik Hoy Vitamin B12 deficien cy E53.[address] [address] 02/22/2025 Erik Hoy Vitamin B12 deficien cy E53.8 ; Hyperlipidemia E78.5 ; Atrial fibrillation I48.91 ; CVA (cerebral vascular accident) I63.9 and Diabetes mellitus E11.[address] [address] 03/14/2025 Erik Hoy Atrial fibrillation I48.91 ; Hyperlipidemia E78.5 and Pulmonary hypertension I27.[address] [address] 04/06/2025 Erik Hoy Atrial fibrillation I48.91 and CHF (congestive heart failure) I50.[address] [address] 08/29/2025 Erik Hoy Vitamin B12 deficien cy E53.8 ; Encounter for immunization Z23 and UTI (urinary tract infection) N39.0 [facility] [address] [facility] [address] [place] [address] 09/22/2024 Erik Hoy Diabetic neuropathy E11.40 ; Essential Hypertension I10 ; Resting tremor G25.2 and Anxiety neurosis F41.1 [facility] [address] [facility] [place] [address] 08/29/2025 Erik Hoy Urinary frequency R3 5.0 [facility] [address] [facility] [place] [address] 09/04/2025 Erik Hoy Confusion R41.0 [facility] [address] [facility] [place] [address] 07/30/2025 Erik Hoy Pulmonary edema J81. 1 [facility] [address] [facility] [address] [place] [address] 07/31/2025 Erik Hoy [facility] [facility] [place] [address] 08/13/2025Doug HoyAtrial fibrillation I48.91[facility] [facility] [place] [facility] [address]/12/2024[facility] [place] [address]/06/2025[facility] [facility] [place] [address]/07/2025 [facility] [place] [address]/[facility] [place] [address]/02/2025[facility] [place] [address]/05/2025[facility] [place] [address]/[facility] [place] [address]/ [facility] [facility] [place] [address]/03/2025[facility] [facility] [place] [address]/07/2025[facility] [facility] [place] [address]/Doug HoyCHF (congestive heart failure) I50.9 ; Edema R60.9 ; Chronic kidney disease, stage 3 unspecified N18 .30 and Urinary obstruction N13.9[facility] [facility] [place] [address]/[facility] [address] [place] [address]/05/2025[facility] [facility] [place] [address]/05/2025Doug [facility] [facility] [place] [address] 05/21/2025Doug HoyPleural effusion C48Cenjxi[address] [place], [place] [address] [facility] [place] [address]/11/2024[facility] [facility] [place] [address]/02/2025[facility] [facility] [place] [address]/08/2025 [facility] [facility] [place] [address]/12/2024[facility] [facility] [place] [address]/12/2024[facility] [facility] [place] [address]/Doug HoyAtrial fibrillation I48.91[facility] [facility] [place] [address]/07/2025[facility] [facility] [place] [address]/03/2025[facility] [facility] [facility] [place] [address]/04/2025[facility] [facility] [place] [address]/04/2025Doug HoyAtrial fibrillation I48.91[facility] [facility] [place] [address]/[facility] [facility] [place] [address]/11/2024Doug HoyAltered mental status R41.82 [place] [address] [facility] [place] [address] 09/25/2024ou Pineda Assessments Encounter Date Diagnosis (ICD Code) Assessment Notes Treatment Notes Treatment Clinical Notes Section Notes 09/22/2024 Diabetic neuropathy (ICD-10 - E1 1.40) 11/17/2024Vitamin B12 deficiency (ICD-10 - E53.8)12/18/2024Vitamin B12 deficiency (ICD-10 - E53.8)01/15/2025Vitamin B12 deficiency (ICD-10 - E53.8) 01/18/2025Edema (ICD-10 - R60.9)01/18/2025Urinary frequency (ICD-10 - R35.0) 09/22/2024Essential Hypertension (ICD-10 - I10)trial of inc labetolol to TID 02/22/2025Hyperlipidemia (ICD-10 - E78.5)02/22/2025Vitamin B12 deficiency (ICD- 10 - E53.8)03/26/2025Vitamin B12 deficiency (ICD-10 - E53.8)04/06/2025trial fibrillation (ICD-10 - I48.91)04/06/2025HF (congestive heart failure) (ICD-10 - I50.9)08/29/2025Encounter for immunization (ICD-10 - Z23)08/29/2025Vitamin B12 deficiency (ICD-10 - E53.8)01/18/2025trial fibrillation (ICD-10 - I48.91) 02/13/2025ltered mental status (ICD-10 - R41.82)04/10/2025trial fibrillation (ICD-10 - I48.91)05/08/2025HF (congestive heart failure) (ICD-10 - I50.9) 05/21/2025Pleural effusion (ICD-10 - J90)07/30/2025Pulmonary edema (ICD-10 - J81.1)08/13/2025trial fibrillation (ICD-10 - I48.91)08/29/2025Urinary frequency (ICD-10 - R35.0)09/04/2025onfusion (ICD-10 - R41.0)03/14/2025trial fibrillation (ICD-10 - I48.91)03/14/2025Hyperlipidemia (ICD-10 - E78.5) 03/14/2025Pulmonary hypertension (ICD-10 - I27.20)05/08/2025Edema (ICD-10 - R60.9)08/29/2025UTI (urinary tract infection) (ICD-10 - N39.0)09/22/2024esting tremor (ICD-10 - G25.2)02/22/2025trial fibrillation (ICD-10 - I48.91)01/18/2025 Essential Hypertension (ICD-10 - I10)4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) 01/18/2025Diabetes mellitus (ICD-10 - E11.9)02/22/2025VA (cerebral vascular accident) (ICD-10 - I63.9)05/08/2025hronic kidney disease, stage 3 unspecified (ICD-10 - N18.30)02/22/2025Diabetes mellitus (ICD-10 - E11.9)restarting dredryrgp03/24/2025Urinary obstruction (ICD-10 - N13.9) Plan Of Treatment Pending Test Test Name Order Date CMP (COMPLETE METABOLIC PANEL) 4 UA (URINALYSIS, COMPLETE) 05/08/2025 UA (URINALYSIS, COMPLETE) 08/29/2025 UA (URINALYSIS, COMPLETE) 09/04/2025 CBC WITH DIFF 01/18/2025 XR Chest PA and Lateral (Routine CXR) * 07/23/2023 XR Chest PA and Lateral (Routine CXR) * 08/30/2023 XR Chest PA and Lateral (Routine CXR) * 09/09/2023 T3 FREE, T4 FREE and TSH 03/13/2024 UA DIP NONAUTO WO MICRO (62084) - IN OFF ICE 08/29/2025 Urine Culture 09/04/2025 FECAL OCCULT BLOOD 03/13/2024 Troponin 05/08/2025 CMP - Comprehensive Metabolic Panel 04/16 Basic Metabolic Panel (8) 04/10/2025 CBC W/AUTO DIFF 05/08/2025 MRI Brain w/o Contrast 02/13/2025 CULTURE SPUTUM 07/23/2023 CULTURE SPUTUM 01/18/2025 CULTURE SPUTUM 05/08/2025 CULTURE URINE 08/29/2025 RESPIRATORY PANEL PLUS 09/09/2023 SPUTUM GRAM STAIN 01/18/2025 URINE MICROSCOPIC ONLY 08/29/2025 CT CHEST WO CON 05/21/2025 THYROID PANEL (T4/TSH/FREE T3) Free PSA 03/13/2024 CMP (COMP MET LYN) w/eGFR CKD-EPI 2024 Next Appt Details Provider Name:Erik Sung, 10:00:00 AM, [address] [place], [address], Insurance Providers Payer Name Payer Address Payer Phone Subscriber Number Group Number Insured Name Patient Relationship to Insured Coverage Start Date Coverage End Date [place]IC[place] [address] [place] [address] [id number] Dafne Heredia - patient is the [id number] 2004[employer] [facility] [address] [place] [id number] Dafne Londono - patient is the [id number] 2014 Medications Administered Medication Instructions Date of Administration Dosage Notes Ceftriaxone 1 gram g1 unEjnuknoancrssk65/21/20231 tVWfgchjchvfxqyc12/19/20231 mL Jckwophctgland19/19/20231 aUBfsgupvfzgfzag40/23/20231 jTWffmbwotevmtqg29/21/2023 1 xNJpqqjeqlwkyhjh66/25/20241 hSUlkqlrsqnschru82/23/20241 mLCyanocobalamin xOTdbmitsyexutgf73/19/20241 tNUaqzwafrnovfat99/20/20241 mL Twkhlakocmdbil37/20/20241 eDZahiqhsczkjljs99/19/20241 lUWnfoxpqyjnptlp62/23/2024 1 jVMvynswgchajcnh10/23/20241 gnGzluuoodspfjck76/03/20251 mLCyanocobalamin rQAsxpaixtstjbdm95/03/20251 sELboknizavptzle68/10/20251 mL Totzwuhgybxagu50/12/20251 iRJvdafaqsfchtys17/15/20251 mL Medical (General) History Medical History History [...] B12 deficiency E53.8 Surgical History Surgery Date(Month/Year) Right heart cath 05/11/25 Hiatal Hernia TONSILLECTOMY,UNDER 12YRSBack surgeryCHOLECYSTECTOMYHospitalization History Reason Date(Month/Year) Mini Stroke 2023 Weakness, Slurred Speech 08/2024 SOB, Swelling in legs 05/2023
--- OUTSIDE RECORDS SUMMARY | 2025-09-04 15:49 | XMS_ITS | CCD ---
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 Name Role Phone PHYSICIAN, DEFAULT Admitting Unavailable PHYSICIAN, DEFAULT Attending Unavailable VAN YOUSSEF Primary Care Unavailable Van Youssef Primary Care Physician [phone] MIKAEL ., DR ARAUJO Primary Care Unavailable HOY ., DR ARAUJO Consulting Unavailable HOY ., DR ARAUJO Attending Unavailable HOY ., DR ARAUJO Admitting Unavailable ZIEBER, DR CLOVER Zimmer Consulting Unavailable SAMISH, DR CRAMER Consulting Unavailable HOY ., DR ARAUJO Primary Care Unavailable SAMISH, DR CRAMER Attending Unavailable SAMISH, DR CRAMER Admitting Unavailable SAMISH, DR CRAMER Consulting Unavailable HOY ., DR ARAUJO Primary Care Unavailable SAMISH, DR CRAMER Attending Unavailable SAMISH, DR CRAMER Admitting Unavailable HOY ., DR ARAUJO Consulting Unavailable HOY ., DR ARAUJO Primary Care Unavailable HOY ., DR ARAUJO Attending Unavailable HOY ., DR ARAUJO Admitting Unavailable SAMISH, DR CRAMER Consulting Unavailable HOY ., DR ARAUJO Primary Care Unavailable SAMISH, DR CRAMER Attending Unavailable SAMISH, DR CRAMER Admitting Unavailable HOY ., DR [...] Unavailable Van Youssef MD Primary Care Provider [phone] Van Youssef MD Primary Care Provider [phone] Van Youssef MD Primary Care Provider [phone] DO Bunny EVRDUGOobir R Admitting UnavailDO Bunny Smithobir R Attending UnavailClover Villatoro Consulting Unavailable MD Clover Walker Consulting Unavailable Manor, Clover Consulting Unavailable Manor, Clover Consulting Unavailable Manor Clover Consulting Unavailable Manor Clover Consulting Unavailable Manor, Clover Consulting Unavailable Manor, Clover Consulting Unavailable Manor, Clover Consulting Unavailable [facility] [place] Wound, XXXX Consulting Unavailable [facility] [place] Cardio, XXXX Consulting Unavailable Hanna Mahmoud Consulting Unavailable MD Rebeca Ferreira Consulting Unavailable Othman Mahmoud Consulting Unavailable KARTIK, Ronobir R Admitting Unavailable Bunny VERDUGOobir R Attending Unavailable [facility] [place] Wound, XXXX Consulting Unavailable HOY, VAN M [...] Admitting Unavail able Rivas Griggs Attending Unavailable BLAISE CHICAS Attending Unavailable BARRIE MONTOYA Attending Unavailable BLAISE CHICAS Attending Unavailable MONY HERRON Attending Unavailable BLAISE CHICAS Attending Unavailable BARRIE MONTOYA Attending Unavailable BARRIE MONTOYA Attending Unavailable BLAISE CHICAS Attending Unavailable RODNEY JOY Attending Unavailable BLAISE CHICAS Attending Unavailable BLAISE CHICAS Attending Unavailable BARRIE MONTOYA Attending Unavailable MOUKARBCLARIBEL DINH Attending Unavailable AMYJEFF Attending Unavailable SAMISHRUTHIE Attending Unavailable LAURIERUY Attending Unavailable MOUKARBCLARIBEL DINH Referring Unavailable MOUKARBELCLARIBEL Attending Unavailable LAURIERUY Attending Unavailable MOUKARBELCLARIBEL Attending Unavailable MOUKARBEL, CLARIBEL Attending Unavailable Allergies Allergy ClassificationReported Allergen(s)Allergy TypeDate of OnsetReaction(s) Facility (20 sources)Aminolevulinic Acid; Translations: [aminolevulinic acid]Drug Allergy 26-27-2078DgvjnygAbl [facility] Repository (1 source)NITRO PATCH; Translations: [NITRO PATCH]Propensity to adverse reactions (disorder)[facility] ([facility] sources)Contrast media; Translations: [Contrast Dye]Drug allergyUnknown (qualifier value)[facility] (20 sources)Hmg-Coa Reductase Inhibitors (Statins); Translations: [statins] Allergy to xsyblrefm36-82-7582[facility] (20 sources)Nitroglycerin; Translations: [nitroglycerin]Drug Wfjznsi47-58-3337 Unknown (qualifier value)[facility] (2 sources)black walnut pollen extract; Translations: [IBEEJZK-PUP-AQV REDUCTASE INHIBITORS]Drug Yvfzyah65-52-6367[facility] (1 source)Iodine (And Iodine Containting Drugs)Drug allergy (disorder)05-28-2016 [facility] (20 sources)NitroglycerinAllergy to cnodqfbzr93-88-6236[facility] (20 sources)Iodinated Contrast Media; Translations: [IODINATED CONTRAST MEDIA] Drug Tumuhup61-97-3592DWQZ [facility] (14 sources)Simvastatin; Translations: [simvastatin]Drug Nqqkmhb45-87-9142 elevated liver enzymesExecutive Urology of [facility] (7 sources)Aminolevulinic Acid; Translations: [aminolevulinic acid]Drug Allergy 59-76-3079[facility] (7 sources)Nitroglycerin; Translations: [Nitroglycerin Patch]Drug AllergyC[facility] (2 sources)Aminolevulinic Acid; Translations: [AMINOLEVULINIC ACID HCL]Drug Eqmalnz78-25-8772WyvrajvrdiPark[facility] Medications Current Medications MedicationDrug Class(es)DatesSig (Normalized)Sig (Original)acetaminophen 500 mg oral tablet (12 sources)take 2 tablets by mouth every six hours as needed for pain acetaminophen (Tylenol) 500 MG tablet Take 1,000 mg by mouth every 6 (six) hours if needed for mildpain Activeacetaminophen 325 mg / HYDROcodone bitartrate 5 mg oral tablet (4 sources)Opioid AgonistStart: 89-73-6798ekfq 1 tablet by mouth every six hours as needed for pain, then take 2 tablets by mouth every six hours as needed for painNorco 325 mg-5 mg oral tablet 1 tab(s), Oral, q6hr, 2 tab(s), Refill(s) 0, Take q6hrs as needed forpain., [facility]/pharmacy #[id number], 185, cm, 10/02/24 11:15:00 EST, Height/Length Dosing, 91, kg, 10/02/24 11:15:00 EST, Weight Dosing Start Date: 10/16/24 Status: Orderedacyclovir 400 mg oral tablet (20 sources)Herpesvirus Nucleoside Analog DNA Polymerase Inhibitor, Herpes Simplex Virus Nucleoside Analog DNA Polymerase Inhibitor, Herpes Zoster Virus Nucleoside Analog DNA Polymerase InhibitorStart: 27-62-8298lpte 400 mg by mouth twice dailyacyclovir 400 mg, Oral, BID, Refills(s) 0, Infection or prophylaxis for antibiotics Start Date: 01/09/19 Status: Orderedalogliptin 25 mg oral tablet (20 sources)Start: 55-34-9663ogqd 1 tablet by mouth in the morningalogliptin (Nesina) 25 MG tablet Take 1 tablet by mouth in the morning. 11/12/2022 Active ALPRAZolam 0.25 mg oral tablet (20 sources)BenzodiazepineStart: 56-58-6236aisi 1 tablet by mouth every eight hours as needed for anxietyXanax 0.25 mg Tab 0.25 mg = 1 tab(s), Oral, q8hr, PRN as needed for anxiety, # 10 tab(s), Refills(s) 0 Start Date: 04/18/25 Status: Ordered Quantity: 10.0 Unit: tab(s) Repeat number: 1 Indications: Anxiety disorder, unspecified;ALPRAZolam (Xanax) 0.25 MG tablet every 12 (twelve) hours. Activeapixaban 2.5 mg oral tablet (20 sources)Factor Xa InhibitorStart: 43-88-8169gqva 2.5 mg by mouth twice daily Eliquis 2.5 mg, Oral, BID, Refills(s) 0, Blood Thinner Start Date: 01/09/19 Status: OrderedStart: 75-11-4521nyfz 5 mg by mouth twice dailyEliquis 5 mg, Oral, BID, Refills(s) 0, Blood Thinner Start Date: 01/09/19 Status: Ordered End: 57-44-8122uivdmjob (Eliquis) 2.5 MG tablet every 12 (twelve) hours. 04/10/2025 DiscontinuedAspirin (20 sources)Platelet Aggregation Inhibitor, Nonsteroidal Anti-inflammatory Drug Start: 92-40-9669Xvevimh Low Dose 81 mg, Daily Start Date: 06/11/25 Status: Ordered Repeat number: 1Start: 74-09-5458qkrc 81 mg by mouth once dailyaspirin 81 mg, Oral, Daily, Refills(s) 0, Prophylaxis Start Date: 01/09/19 Status: Ordered Repeat number: 1take 1 tablet by mouth in the morningaspirin 81 MG EC tablet Take 1 tablet by mouth in the morning. ActiveB Complex with Vitamin C Gummy oral tablet, chewable (2 sources)Start: 28-28-2480vihv 1 tablet by mouth once dailyB Complex with Vitamin C Gummy oral tablet, chewable 1 tab(s), Chewed, Daily, Refill(s) 0 Start Date: 04/14/25 Status: Ordered Repeat number: 1B-Complex tablet (20 sources)B-Complex tablet as directed Orally Activebacitracin zinc 0.5 unt/mg topical ointment (12 sources)bacitracin 500 UNIT/GM ointment Apply 1 application topically in the morning and 1 application before bedtime. Activebacitracin top 500 units/g Oint PACKET (2 sources)Start: 07-18-0288vhxkddcrkp top 500 units/g Oint PACKET Topical, BID, Refill(s) 0 Start Date: 04/18/25 Status: OrderedRepeat number: 1Symbicort (20 sources)Corticosteroid, beta2-Adrenergic AgonistStart: 03-78-2279Yeoohsgbl 80-4.5 mcg/actuation, Inhalation, BID, Refill(s) 0, COPD Start Date: 01/09/19 Status: Ordered Repeat number: 1Start: 58-71-3256Vdzqdmmor 80-4.5 mcg/actuation, Inhalation, BID, Refill(s) 0, COPD Start Date: 01/09/19 Status: Orderedtake 2 puff(s) by inhalation in the morningbudesonide-formoterol (Symbicort) 80-4.5 MCG/ACT inhaler Inhale 2 puffs in the morning and 2 puffs before bedtime. Rinse mouth with water after use to reduce aftertaste and incidence of candidiasis. Do not swallow. Active End: 47-89-7952xlwjaukbsq-formoterol (Symbicort) 80-4.5 MCG/ACT inhaler 1 (one) time each day at the same time. 08/01/2024 Discontinuedcetirizine hydrochloride 10 mg oral tablet (14 sources)Histamine-1 Receptor AntagonistStart: 28-36-3600hzms 1 tablet by mouth once dailycetirizine 10 mg Tab 10 mg = 1 tab(s), Oral, Daily, Refills(s) 0 Start Date: 04/14/25 Status: Ordered Repeat number: 1cetirizine (ZyrTEC) 10 MG chewable tablet Chew 10 mg Daily Activecholecalciferol 0.025 mg oral tablet (20 sources)Vitamin Dcholecalciferol (Vitamin D-[address]) 25 MCG (1000 UT) tablet Take 2,000 Units by mouth in the morning. Activeciprofloxacin 500 mg oral tablet (5 sources)Quinolone AntimicrobialStart: 39-31-5070ffmg 1 tablet by mouth twice dailyCipro 500 mg Tab 500 mg = 1 tab(s), Oral, BID, Start 1 day prior to procedure., # 6 tab(s), Refills(s) 0, Pharmacy: [facility]/pharmacy #[id number], 185, cm, 10/02/24 11:15:00 EST, Height/Length Dosing, 91, kg, 10/02/24 11:15:00 EST, Weight Dosing Start Date: 10/16/24 Status: OrderedStart: 39-37-2234nysj 1 tablet by mouth twice dailyCipro 500 mg Tab 500 mg = 1 tab(s), Oral, BID, Start 3 days prior to procedure., # 6 tab(s), Refills(s) 0, Pharmacy: [facility]/pharmacy #[id number], 185, cm, 08/08/24 10:28:00 EDT, Height/Length Dosing, 91, kg, 08/08/24 10:28:00 EDT, Weight Dosing Start Date: 08/11/24 Status: OrderedDaily Fiber Sugar-Free (1 source)Start: 55-05-7696qzbw 3 capsules by mouth once dailyDaily Fiber Sugar- Free 3 capsules, Oral, Daily, Refill(s) 0 Start Date: 04/14/25 Status: Ordered Repeat number: 1dapagliflozin 5 mg oral tablet (1 source)Sodium-Glucose Cotransporter 2 InhibitorStart: 48-46-5980iszr 5 mg by mouth once dailyFarxiga 5 mg, Oral, Daily Start Date: 06/11/25 Status: Ordered Repeat number: 1diazePAM 10 mg oral tablet (4 sources)BenzodiazepineStart: 36-04-3175Rqojmd 10 mg Tab 10 mg = 1 tab(s), Oral, Once, take one hour prior to the procedure., # 1 tab(s), Refills(s) 0, Pharmacy: [facility]/pharmacy #[id number], 185, cm, 10/02/24 11:15:00 EST, Height/Length Dosing, 91,kg, 10/02/24 11:15:00 EST, Weight Dosing Start Date: 10/16/24 Status: Ordereddicyclomine hydrochloride 10 mg oral tablet (20 sources)AnticholinergicStart: 20-74-9582jiep 10 mg by mouth twice daily dicyclomine 10 mg, Oral, BID, Refills(s) 0, Spasm Start Date: 01/09/19 Status: Ordered Repeat number: 1take 1 capsule by mouth once dailydicyclomine (Bentyl) 10 MG capsule Take 1 capsule every day by oral route. ActiveDULoxetine 20 mg delayed release oral capsule (20 sources)Serotonin and Norepinephrine Reuptake InhibitorStart: 08-01-2024 End: 14-13-4472dckx 1 capsule by mouth at bedtimeDULoxetine (Cymbalta) [address] capsule Indications: Neurogenic pain Take 1 capsule (20 mg) by mouthat bedtime 90 capsule 1 08/01/2024 Activeempagliflozin 25 mg oral tablet (20 sources)Sodium-Glucose Cotransporter 2 InhibitorStart: 68-12-2977enaw 1 tablet by mouth in the morningempagliflozin (Jardiance) 25 MG Take 1 tablet by mouth in the morning. 11/12/2022 ActiveStart: 34-73-4353Vruteruiu 10 mg oral tablet 25 mg, Oral, qAM, Refills(s) 0, Blood glucose Start Date: 03/31/22 Status: Ordered Repeat number: 1Start: 25-36-4821nyjp 1 tablet by mouth once daily in the morningJardiance 10 mg oral tablet 10 mg = 1 tab(s), Oral, qAM, Refills(s) 0, Blood glucose Start Date: 03/31/22 Status: Orderedezetimibe 10 mg oral tablet (20 sources)Dietary Cholesterol Absorption InhibitorStart: 37-98-8843zoic 10 mg by mouth once dailyZetia 10 mg, Oral, Daily, Refills(s) 0, High cholesterol Start Date: 01/09/19 Status: Ordered Repeatnumber: 1ferrous sulfate (20 sources)Start: 63-36-0207gpqoqlt sulfate 325 mg, BID, Refills(s) 0, Prophylaxis Start Date: 01/09/19 Status: Orderedtake 1 tablet by mouth in the morningferrous sulfate 325 (65 Fe) MG tablet Take 1 tablet by mouth in the morning and 1 tablet before bedtime. Jeekzt93 actuat fluticasone propionate 0.113 mg/actuat / salmeterol xinafoate 0.014 mg/actuat dry powder inhaler (12 sources)Corticosteroid, beta2-Adrenergic Agonisttake 1 puff(s) by mouth in the morningfluticasone-salmeterol (AirDuo RespiClick) 113-14 MCG/ACT inhaler Inhale 1 puff in the morning and 1 puff before bedtime. Rinse mouth with water after use to reduce aftertaste and incidence of candidiasis. Do not swallow. Activefurosemide 20 mg oral tablet (20 sources)Loop DiureticStart: 16-44-9003eubi 1 mg by mouth once dailyLasix 80 mg Tab mg tab(s), Oral, Daily, Refills(s) 0 Start Date: 08/08/24 Status: Ordered Start: 78-37-8137Iiwkz 20 MG tablet 1 (one) time each day at the same time. 07/07/2023 ActiveStart: 55-21-2220Hwdtk 40 mg, Refills(s) 0, diuretic/water pill Start Date: 01/09/19 Status: Orderedgabapentin 600 mg oral tablet (17 sources)Anti-epileptic AgentStart: 35-27-2536zxfkdhhqvh 600 mg, Oral, qNOON, Refills(s) 0, Neuropathy Start Date: 01/09/19 Status: Orderedglimepiride 8 mg oral tablet (20 sources)SulfonylureaStart: 29-76-3016motw 8 mg by mouth once daily glimepiride 8 mg, Oral, Daily, Refills(s) 0, High blood sugar Start Date: 01/09/19 Status: Ordered Repeat number: 1Start: 61-08-0928mqjk 2 mg by mouth once dailyglimepiride 2 mg, Oral, Daily, Refills(s) 0, High blood sugar Start Date: 01/09/19 Status: Orderedtake 1 tablet by mouth in the morningglimepiride (Amaryl) 4 MG tablet Take 1 tablet by mouth in the morning and 1 tablet before bedtime. ActivehydrALAZINE hydrochloride 100 mg oral tablet (20 sources)Arteriolar VasodilatorStart: 01-09-2019 End: 53-25-3023ebdn 100 mg by mouth twice dailyhydrALAZINE 100 mg, Oral, BID, Refills(s) 0, High blood pressure Start Date: 01/09/19 Status: Ordered3 ml insulin lispro 50 unt/ml / insulin lispro protamine, human 50 unt/ml pen injector (12 sources)Insulin Analoginsulin lispro protamine-insulin lispro (HumaLOG MIX 50/50 KWIKPEN) (50-50) 100 UNIT/ML injection Inject under the skin in the morning and in the evening. Inject with meals. Activelabetalol hydrochloride 300 mg oral tablet (20 sources)beta-Adrenergic BlockerStart: 04-17-2025 End: 26-70-0001wnffqgejw 100 mg Tab 300 mg = 3 tab(s), Tab, Oral, Start date 04/17/25 10:00:00 PM EDT, 04/16/25 7:36:00 EDT Start Date: 04/17/25 Stop Date: 04/17/25 Status: Completed Repeat number: 1Start: 04-16-2025 End: 14-89-8095tyjffiwhr 100 mg Tab 300 mg = 3 tab(s), Tab, Oral, Start date 04/16/25 10:00:00 PM EDT, 04/16/25 7:36:00 EDT Start Date: 04/16/25 Stop Date: 04/16/25 Status: Completed Repeat number: 1Start: 13-81-2560jucfhqvbh 300 mg Tab 300 mg = 1 tab(s), Refills(s) 0 Start Date: 06/11/25 Status: Ordered Repeat numb er: 1Start: 20-63-5131moyw 150 mg by mouth once dailylabetalol 150 mg, Oral, Daily, Refills(s) 0, High blood pressure Start Date: 01/09/19 Status: Ordered Start: 53-02-2744klvc 300 mg by mouth once dailylabetalol 300 mg, Oral, Daily, Refills(s) 0, High blood pressure Start Date: 01/09/19 Status: Orderedtake 0.5 tablet by mouth twice dailylabetalol (Normodyne) 300 MG tablet TAKE 1/2 TABLET BY MOUTH 2 TIMES DAILY ActivelevoFLOXacin 750 mg oral tablet (20 sources)Quinolone AntimicrobialStart: 16-63-2877nfwcNDVPlcva (Levaquin) 750 MG tablet 1 (one) time each day at the same time. 07/23/2023 Activelinagliptin 5 mg oral tablet (13 sources)Dipeptidyl Peptidase 4 InhibitorStart: 85-08-2311eeuy 5 mg by mouth once dailyTradjenta 5 mg, Oral, Daily Start Date: 06/11/25 Status: Ordered Repeat number: 1Loratadine (13 sources)Start: 06-24-2380psvmxabzxo 10 mg, Daily Start Date: 06/11/25 Status: Ordered Repeat number: 1take 1 tablet by mouth once dailyloratadine (Claritin Reditabs) 10 MG disintegrating tablet Take 10 mg by mouth Daily Activemagnesium oxide 500 mg oral tablet (20 sources)Start: 05-30-0742tdhy 500 mg by mouth three times dailymagnesium oxide 500 mg, Oral, TID, Refills(s) 0, Prophylaxis Start Date: 08/28/20 Status: Ordered Repeat number: 1Start: 30-95-3474posg 500 mg by mouth once daily magnesium oxide 500 mg, Oral, Daily, Refills(s) 0, Prophylaxis Start Date: 08/28/20 Status: OrderedStart: 30-00-8290vksqymhyt oxide Oral, Refills(s) 0 Start Date: 08/28/20 Status: OrderedmetFORMIN hydrochloride 500 mg oral tablet (20 sources)BiguanideStart: 94-86-0981cfvx 1 tablet by mouth three times daily metformin 500 mg Tab 500 mg = 1 tab(s), Oral, TID, Refills(s) 0 Start Date: 08/08/24 Status: OrderedRepeat number: 1Start: 08-28-2020 End: 36-98-0618wtgm 1 mg by mouth once dailymetformin 500 mg ER Tab mg tab(s), Oral, Daily, Refills(s) 0 Start Date: 08/28/20 Status: Orderedmetoclopramide 5 mg oral tablet (20 sources)Dopamine-2 Receptor AntagonistStart: 42-44-2559uacm 5 mg by mouth twice dailymetoclopramide 5 mg, Oral, BID, Refills(s) 0, Control of stomach acid Start Date: 01/09/19 Status: Orderedmetoclopramide (Reglan) 5 MG tablet every 12 (twelve) hours Activemupirocin 20 mg/ml topical cream (6 sources)RNA Synthetase Inhibitor AntibacterialStart: 87-15-1424bnzbqcxag Top 2% Crm Refill(s) 0 Start Date: 08/08/24 Status: Odouxik90 hr NIFEdipine 90 mg extended release oral tablet (20 sources)Dihydropyridine Calcium Channel BlockerStart: 82-22-1837fqug 90 mg by mouth twice dailyNIFEdipine 90 mg, Oral, BID, Refills(s) 0, High blood pressure Start Date: 01/09/19 Status: OrderedStart: 18-59-9965iuvp 90 mg by mouth once dailyNIFEdipine 90 mg, Oral, Daily, Refills(s) 0, High blood pressure Start Date: 01/09/19 Status: Ordered End: 85-79-3800xxsp 1 tablet by mouth twice dailyNIFEdipine XL (Procardia XL) 60 MG 24 hr tablet Take 1 tablet twice a day by oral route for 90 days. 08/01/2024 DiscontinuedNuLYTELY Lemus oral powder for reconstitution (1 source)Start: 70-77-2729iomv 1 dose by mouth once dailyNuLYTELY Lemus oral powder for reconstitution See Instructions, 1 EA, Refill(s) 0, 240 mL Oral Daily Prior to colonoscopy Per physician's instructions, [facility]/pharmacy #[id number], 185, cm, 03/31/22 9:58:00 EDT, Height/Length Dosing, 101, kg, 03/31/22 9:58:00 EDT, Weight Dosing Start Date: 03/31/22 Status: Orderedomeprazole 20 mg delayed release oral capsule (20 sources)Proton Pump InhibitorStart: 20-89-6923satshvldub 20 mg Cap-DR 20 mg = 1 cap(s) Start Date: 06/11/25 Status: Ordered Repeat number: 1Start: 01-09-2019 omeprazole 20 mg, Oral, Daily, Refills(s) 0, Control of stomach acid Start Date: 01/09/19 Status: Ordered Repeat number: 1Start: 84-36-0617vpzx 20 mg by mouth twice dailyomeprazole 20 mg, Oral, BID, Refills(s) 0, Control of stomach acid Start Date: 01/09/19 Status: Orderedtake 2 capsules by mouth once dailyomeprazole (PriLOSEC) [address] capsule Take 2 capsules every day by oral route for 90 days. Activephenazopyridine hydrochloride 100 mg oral tablet (1 source)Start: 10-16-2024 End: 42-34-8869Hqrwzbpn 100 mg Tab 100 mg = 1 tab(s), Oral, TID, Take TID as needed., X 2 week(s), # 42 tab(s), Refills(s) 0, Pharmacy: [facility]/pharmacy #[id number], 185, cm, 10/02/24 11:15:00 EST, Height/Length Dosing, 91, kg, 10/02/24 11:15:00 EST, Weight Dosing Start Date: 10/16/24 Stop Date: 10/30/24 Status: Ordered pioglitazone 30 mg oral tablet (20 sources)Peroxisome Proliferator Receptor alpha Agonist, Peroxisome Proliferator Receptor gamma Agonist, ThiazolidinedioneStart: 08-28-2020 pioglitazone 30 mg Tab 45 mg, Oral, Daily, Refills(s) 0, Blood glucose Start Date: 08/28/20 Status:Ordered Repeat number: 1Start: 08-28-2020 End: 99-20-0922lkeg 1 tablet by mouth once dailypioglitazone 30 mg Tab 30 mg = 1 tab(s), Oral, Daily, Refills(s) 0, Blood glucose Start Date: 08/28/20 Status: Orderedtake 1 tablet by mouth once dailypioglitazone (Actos) 45 MG tablet TAKE 1 TABLET BY MOUTH EVERY DAY for 90 Activepolyethylene glycol 3350 02095 mg powder for oral solution (12 sources)Osmotic Laxativetake 17 g by mouth every twenty-four hours as needed polyethylene glycol, PEG, 3350 (Miralax) 17 g packet Take 17 g by mouth Daily as needed ActiveKlor-Con (20 sources)Start: 60-99-5589Yvlj-Con 20 mEq, Oral, Daily, Refills(s) 0, Prophylaxis Start Date: 01/09/19 Status: Ordered Repeat number: 1Start: 92-46-8610Pzrj-Con 20 mEq, Oral, Daily, Refills(s) 0, Prophylaxis Start Date: 01/09/19 Status: Orderedtake 1 tablet by mouth in the morningKLOR-CON 20 MEQ ER tablet Take 1 tablet by mouth in the morning and 1 tablet before bedtime. Active take 20 mEq by mouth once dailypotassium chloride (Klor-Con) 20 MEQ packet Take 20 mEq by mouth Daily ActivePred Mild (20 sources)CorticosteroidStart: 87-92-7024kajy 1 drop(s) into the eye(s) twice dailyPred Mild 1 drop(s), Eye-Both, BID, Refill(s) 0, Inflammation Start Date: 01/09/19 Status: Ordered Repeat number: 1Start: 99-89-1820evcu 1 drop(s) into the eye(s) three times dailyPred Mild 1 drop(s), Eye-Both, TID, Refill(s) 0, Inflammation Start Date: 01/09/19 Status: OrderedStart: 90-06-7551lwqq 1 drop(s) into the eye(s) twice dailyPred Mild 1 drop(s), Eye-Both, BID, Refill(s) 0, Inflammation Start Date: 01/09/19 Status: Orderedtake 1 drop(s) into the eye(s) three times dailyprednisoLONE acetate (Pred-Forte) 1 % ophthalmic suspension INSTILL 1 DROP INTO RIGHT EYE 3 TIMES ADAY DIRECTED Activeprimidone 250 mg oral tablet (20 sources)Anti-epileptic AgentStart: 08-01-2024 End: 17-70-0070wnjpwlzdb (Mysoline) 250 MG tablet Indications: Benign essential tremor 1/2 tab BID 90 tablet 1 04/10/2025 ActiveStart: 01-11-2024 End: 00-56-2718flntqypbf (Mysoline) 50 MG tablet Indications: Benign essential tremor 1 tab TID 270 tablet 3 01/11/2024 08/01/2024 Discontinued (Reorder)Start: 29-39-3042myzc 2 tablets by mouth twice dailyprimidone 50 mg Tab 100 mg = 2 tab(s), Oral, BID, # 30 tab(s), Refills(s) 0, Seizure Start Date: 01/09/19 Status: Ordered Quantity: 30.0 Unit: tab(s) Repeat number: 1Start: 01-09-2019 take 1 tablet by mouth once daily at bedtimeprimidone 50 mg Tab 50 mg = 1 tab(s), Oral, Once a day (at bedtime), # 30 tab(s), Refills(s) 0, Seizure Start Date: 01/09/19 Status: Orderedrivaroxaban 15 mg oral tablet (18 sources)Factor Xa InhibitorStart: 00-42-3469sooh 1 tablet by mouth once daily in the eveningXarelto 15 mg oral tablet 15 mg = 1 tab(s), Oral, qPM, Refills(s) 0 Start Date: 04/14/25 Status: Ordered Repeat number: 1SITagliptin 100 mg oral tablet (19 sources)Dipeptidyl Peptidase 4 InhibitorStart: 77-80-6473symj 100 mg by mouth once dailyJanuvia 100 mg, Oral, Daily, Refill(s) 0, High blood sugar Start Date: 01/09/19 Status: Ordered Repeat number: 1Spiriva Respimat 1.25 mcg/inh inhalation aerosol (1 source)Start: 54-02-0977Jkzkuwe Respimat 1.25 mcg/inh inhalation aerosol 2 puff(s), Inhalation, Daily, Refill(s) 0, COPD Start Date: 01/09/19 Status: Orderedspironolactone 25 mg oral tablet (14 sources)Aldosterone AntagonistStart: 76-58-2757cuhd 1 tablet by mouth once dailyspironolactone 25 mg Tab 25 mg = 1 tab(s), Oral, Daily, Refills(s) 0 Start Date: 04/14/25 Status: Ordered Repeat number: 1tamsulosin hydrochloride 0.4 mg oral capsule (20 sources)alpha-Adrenergic BlockerStart: 01-09-2019 End: 82-08-1218ipdc 0.4 mg by mouth once dailyFlomax 0.4 mg, Oral, Daily, Refills(s) 0, Urinary discomfort Start Date: 01/09/19 Status: Ordered Repeat number: 160 actuat tiotropium 0.21524 mg/actuat inhalation spray (20 sources)AnticholinergicStart: 44-98-7461Rdhygrh Respimat 1.25 mcg/inh inhalation aerosol 2 puff(s), Inhalation, Daily, Refill(s) 0, COPD Start Date: 01/09/19 Status: Ordered Repeat number: 1take 1 capsule by inhalation in the morningtiotropium (Spiriva) [address] 1 capsule into inhaler and inhale in the morning. ActiveVitamin D3 2000 intl units (2 sources)Start: 25-85-8263suxl 2000 [IU] by mouth once dailyVitamin D3 2000 intl units 2,000 unit(s), Oral, Daily, Refills(s) 0 Start Date: 04/14/25 Status: Ordered Repeat number: 1 Completed/Discontinued Medications MedicationDrug Class(es)DatesSig (Normalized)Sig (Original)Bacillus Coagulans- Inulin (Align Prebiotic-Probiotic) 5-1.25 MG-GM chewable tablet (9 sources) End: 96-87-8525Ebopuuym Coagulans-Inulin (Align Prebiotic-Probiotic) 5-1.25 MG- GM chewable tablet 1 capsule 1 (one) time each day at the same time. 08/01/2024 DiscontinuedBacillus Coagulans-Inulin (Align Prebiotic-Probiotic) 5-1.25 MG-GM chewable tablet 1 capsule 1 (one) time each day at the same time. Active betamethasone 0.5 mg/ml / clotrimazole 10 mg/ml topical cream (8 sources)Azole Antifungal, CorticosteroidStart: 47-44-3049lsrvkqzurxeuh- clotrimazole Top 0.05%-1% Crm 15 gram Refill(s) 0 Start Date: 08/08/24 Status: OrderedRepeat number: 1bifidobacterium infantis 4 mg oral capsule (16 sources)Start: 06-10-2023 End: 50-15-2166hzqd 1 capsule by mouth once dailyProbiotic Product (Align) capsule TAKE 1 CAPSULE BY MOUTH DAILY AFTER COMPLETING THE ANTIBIOTICS COURSE 06/10/2023 08/01/2024 DiscontinuedStart: 38-62-2106jtdh 1 capsule by mouth once dailyAlign 4 mg oral capsule 4 mg = 1 cap(s), Oral, Daily, Take after completing the Antibiotics course,# 28 cap(s), Refills(s) 0, Pharmacy: [facility]/pharmacy #[id number], 185, cm, 08/28/20 12:05:00 EDT, Height/Length Dosing, 103.7, kg, 08/28/20 12:05:00 EDT, Weight Dosing Start Date: 08/28/20 Status: OrderedcloNIDine hydrochloride 0.2 mg oral tablet (20 sources)Central alpha-2 Adrenergic AgonistStart: 74-47-1041xsup 0.1 mg by mouth twice dailyclonidine 0.1 mg, Oral, BID, Refills(s) 0, High blood pressure Start Date: 01/09/19 Status: OrderedStart: 01-09-2019 End: 48-41-7357Resxbsdz 0.2 mg Tab 0.2 mg = 1 tab(s), Tab, Oral, Start date 04/18/25 9:00:00 AM EDT, 04/16/25 7:30:00 EDT Start Date: 04/18/25 Stop Date: 04/18/25 Status: Completed Repeat number: 1labetalol 5 mg/mL IV Eda (1 source)Start: 04-14-2025 End: 78-54-6625ahhvwbjgm 5 mg/mL IV Eda 5 mg = 1 mL, Injection, IV Push, q15min PRN Other (see comment), Routine, Start date 04/14/25 9:58:00 PM EDT, 04/14/25 21:58:00 EDT Start Date: 04/14/25 Stop Date: 04/16/25 Status: Discontinued Repeat number: 1psyllium 525 mg oral capsule (20 sources)Start: 70-12-4575rcsd 8 capsules by mouth once dailyMetamucil 525 mg oral capsule 1,050 mg = 2 cap(s), Oral, Daily, Take 2 hour apart from the other medications with at least 8 ounces of water, # 160 cap(s), Refills(s) 1, Pharmacy: [facility]/pharmacy #[id number],185, cm, 08/28/20 12:05:00 EDT, Height/Length Dosing, 103.7, kg, 08/28/20 12:05:00 EDT, Weight Dosing Start Date: 08/28/20 Status: Ordered Quantity: 160.0 Unit: cap(s) Repeat number: 2 Indications: Other constipation;psyllium (Metamucil) 58.6 % packet Take 1 packet by mouth Daily Mix and drink with at least 8 ounces of water or juice. Active Problems Active Problems Problem ClassificationProblemDateDocumented DateEpisodic/ChronicAbdominal pain (1 source)Abdominal pain; Translations: [Unspecified abdominal pain]Onset: 15-20-6773ZxwbxescHlete cerebrovascular disease (1 source)Cerebral infarction; Translations: [Cerebral infarction, unspecified] Onset: 56-78-5011SnwjxpoNcjyi cerebrovascular disease (1 source)Acute cerebrovascular diseaseOnset: 02-81-6423Bwukvna disorders (2 sources)Anxiety disorder, unspecified; Translations: [F41.9]Onset: 04-18-2025 ChronicAsthma (19 sources)Hrgodq33-72-5840PbwzsxhYygjwqi dysrhythmias (6 sources)Unspecified atrial fibrillation; Translations: [Cardiac arrhythmia, unspecified]Onset: 36-00-5211DrpwlzwAljlfmf dysrhythmias (2 sources)Palpitations; Translations: [Palpitations]Onset: 23-39-7436Idwyuujj Chronic kidney disease (1 source)Chronic kidney disease; Translations: [Chronic kidney disease, unspecified]Onset: 85-03-0866SqhtpgxIjxesaw kidney disease (8 sources)Chronic kidney disease; Translations: [CHRONIC KIDNEY DISEASE STAGE 3B]Onset: 32-88-0788Fpfimwxjav disorders (4 sources)Left bundle-branch block, unspecified; Translations: [Left bundle- branch block, unspecified]Onset: 38-56-0690ErwzurxOzpdnpeado heart failure; nonhypertensive (5 sources)Heart failure; Translations: [Heart failure, unspecified]Onset: 34-40-0248TedhvdwIjicnnmu atherosclerosis and other heart disease (6 sources)Unstable angina; Translations: [Chronic ischemic heart disease, unspecified]Onset: 81-45-4196GadjjodDxhjaqscvy and other anemia (1 source)Anemia, unspecified; Translations: [ANEMIA UNSPECIFIED]Onset: 47-84-1253NlvijmkpSpfnstzy mellitus with complications (18 sources)Type 2 diabetes mellitus with hyperglycemia; Translations: [Type 2 diabetes mellitus with diabetic chronic kidney disease]Onset: 08-27-2022 75-20-7808MfswvjdCdafdqql mellitus without complication (20 sources)Diabetes mellitus; Translations: [Type 2 diabetes mellitus without complications]Onset: 118827-48-2194OyfzopiCrjqzuwwk of lipid metabolism (6 sources)Hyperlipidemia, unspecified; Translations: [Mixed hyperlipidemia] Onset: 15-89-2951WvytlcgZpjxyubgqkrhuk and diverticulitis (18 sources)Diverticula of intestine; Translations: [Diverticulosis of intestine, part unspecified, without perforation or abscess without bleeding] Onset: 70-99-0596EogzzhsSqjcibwou hypertension (5 sources)Essential (primary) hypertension; Translations: [ESSENTIAL PRIMARY HYPERTENSION]Onset: 39-89-4672UqcrnswWmpyw and electrolyte disorders (5 sources)Hypo-osmolality and hyponatremia; Translations: [Hyperkalemia]Onset: 22-30-4940FlezhbifBlgwceosxmfvm symptoms and ill-defined conditions (4 sources)Post-void dribbling; Translations: [Post-micturition incontinence ] Onset: 87-47-1497TdeefxtZcwdovyjdyxkf symptoms and ill-defined conditions (18 sources)Retention of urine; Translations: [Retention of urine, unspecified] Onset: 97-61-2104JuegxqjwLptkh valve disorders (15 sources)Nonrheumatic aortic (valve) stenosis; Translations: [Rheumatic tricuspid insufficiency]Onset: 33-76-8672ClpeoviThkxczedrqk (18 sources)Hemorrhoids; Translations: [Unspecified hemorrhoids]Onset: 06-20-3689JqzgozocAjwbbifadjc of prostate (15 sources)Benign prostatic hypertrophy with outflow obstruction; Translations: [Benign prostatic hyperplasia with lower urinary tract symptoms]Onset: 74-77-0023PxwbfpxEetmdgxvoyrx with complications and secondary hypertension (4 sources)Hypertensive chronic kidney disease with stage 1 through stage 4 chronic kidney disease, or unspecified chronic kidney disease; Translations: [Hypertensive urgency ]Onset: 54-71-5332UwbpyoyKreebtmsocur conditions of male genital organs (11 sources)Balanitis; 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]Onset: 87-96-6309BuxaogzPrqg effects of cerebrovascular disease (20 sources)Sequelae of cerebral infarction; Translations: [Unspecified sequelae of cerebral infarction]Onset: 171058-20-1676KcrnnxfSppwtlc (12 sources)Pain in toe; Translations: [Tinea unguium]61-07-0381DtfelhylFstalv and vomiting (12 sources)Nausea; Translations: [Nausea]Onset: 30-93-8068TedbbusvXqcmebhndoj chest pain (2 sources)Chest pain, unspecified; Translations: [Chest pain, unspecified] Onset: 06-99-2901EvzbfxsiObdrxwwugwy deficiencies (2 sources)Vitamin D deficiency, unspecified; Translations: [Vitamin D deficiency, unspecified]Onset: 40-94-6583HfiieneIepwuxhjeta deficiencies (10 sources)Cobalamin deficiency; Translations: [Deficiency of other specified B group vitamins]Onset: 382180-21-0154YjenpcovKshpuxqal or stenosis of precerebral arteries (20 sources)Bilateral stenosis of carotid arteries; Translations: [Occlusion and stenosis of bilateral carotid arteries]Onset: 834581-38-8260LnqkowrAuuax aftercare (3 sources)Long-term current use of anticoagulant; Translations: [group home (current) use of anticoagulants]Onset: 69-74-4871QcgbgobeVilph aftercare (1 source)Long-term current use of drug therapy; Translations: [Other longwall foreman (current) drug therapy]Onset: 11-09-7597WzoxjwbdZaubj and unspecified benign neoplasm (20 sources)History of polyp of colon; Translations: [Personal history of colonic polyps]Onset: 01-90-3766RphdjbgiCkani and unspecified benign neoplasm (20 sources)Polyp of colon; Translations: [Polyp of colon]Onset: 06-09-2022 92-63-6837PpmdtpqfQlvbe and unspecified benign neoplasm (2 sources)Melanocytic nevus of trunk; Translations: [Melanocytic nevi of trunk] 37-69-5250MlgoxqibHusjo circulatory disease (2 sources)Personal history of transient ischemic attack (TIA), and cerebral infarction without residual deficits; Translations: [Personal history of transient ischemic attack (TIA), and cerebral infarction without residual deficits]Onset: 99-19-5743LkfojsrlJhpsh connective tissue disease (16 sources)Pain in right foot; Translations: [Pain in right foot]09-08-2024 EpisodicOther diseases of bladder and urethra (3 sources)Detrusor overactivity; Translations: [Overactive bladder]Onset: 08-18-8474YvbdgrwGylmv diseases of bladder and urethra (8 sources)Overactive rsnacrz74-42-3227BvgjhyqJoiqy diseases of kidney and ureters (2 sources)Urinary tract obstruction; Translations: [Other obstructive and reflux uropathy]Onset: 97-84-4616EelgfyxdLqkvp gastrointestinal disorders (19 sources)Chronic constipation with -41-7617MyykmykxIditb gastrointestinal disorders (4 sources)Other fecal abnormalities; Translations: [OTHER FECAL ABNORMALITIES] Onset: 54-83-5741WnruqepjCmliv gastrointestinal disorders (18 sources)Urgent desire for stool; Translations: [Fecal urgency]Onset: 88-17-2718OjbfrwaaOirqn gastrointestinal disorders (2 sources)Abnormal feces; Translations: [Other fecal abnormalities]Onset: 88-35-9849VrpgwcvoRhbmf gastrointestinal disorders (16 sources)Loose -06-4871KkzslygjGlygl gastrointestinal disorders (14 sources)Abdominal wind pain; Translations: [Gas pain]Onset: 06-10-2023 EpisodicOther gastrointestinal disorders (2 sources)Constipation, unspecified; Translations: [Constipation, unspecified] Onset: 04-69-5857XglyagpsBfmly gastrointestinal disorders (11 sources)Lqdgwhsorthn43-19-9570WyydwdusEzsjy gastrointestinal disorders (1 source)Other constipation; Translations: [Other constipation]Onset: 91-22-1107ClfdpdgkHvrln hereditary and degenerative nervous system conditions (20 sources)Essential tremor; Translations: [Essential tremor]Onset: 01-07-2024 46-97-7530UzgjbqxYsdfe male genital disorders (11 sources)Acquired buried penis; 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]Onset: 59-71-5609EtivkjuQjkva nervous system disorders (20 sources)Polyneuropathy; Translations: [Polyneuropathy, unspecified]Onset: 365328-54-7374ZcrnxpsZohzs skin disorders (2 sources)Actinic keratosis; Translations: [Actinic keratosis]08-24-2024 EpisodicOther skin disorders (2 sources)Lentiginosis; Translations: [Other melanin hyperpigmentation] 71-80-2005SdyyehnpKojrw skin disorders (2 sources)Seborrheic keratosis; Translations: [Other seborrheic keratosis] 67-19-5459SiturrrxScem-; endo-; and myocarditis; cardiomyopathy (except that caused by tuberculosis or sexually transmitted disease) (1 source)Pericardial effusion - noninflammatory; Translations: [Other pericardial effusion (noninflammatory)]Onset: 47-40-3081QwbrggggObceowmgn; thrombophlebitis and thromboembolism (1 source)History of thromboembolism of vein; Translations: [Personal history of other venous thrombosis and embolism]Onset: 84-43-9428JuniuomtHqwinyhn; pneumothorax; pulmonary collapse (2 sources)Pleural effusion, not elsewhere classified; Translations: [Pleural effusion, not elsewhere classified]Onset: 26-71-3334OwrvqbnzMgjxynklv heart disease (4 sources)Pulmonary hypertension, unspecified; Translations: [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 disease]Onset: 31-54-5109YylsolgYgrtmxuy codes; unclassified (1 source)Sleep apnea, unspecified; Translations: [SLEEP APNEA UNSPECIFIED] Onset: 12-63-4050AviizzyMbvkezju codes; unclassified (20 sources)Obstructive sleep apnea syndrome; Translations: [Obstructive sleep apnea (adult) (pediatric)]Onset: 254655-47-1985PkdleyeAfxmwotv codes; unclassified (7 sources)Family history of malignant neoplasm of digestive organ; Translations: [Family history of malignantneoplasm of digestive organs]Onset: 60-77-1478KizlyoqlWxjswjau codes; unclassified (19 sources)Family history of cancer of thxot42-32-1904GsmrecraSuttkbnj codes; unclassified (6 sources)Localized edema; Translations: [LOCALIZED EDEMA]Onset: 11-02-2022 EpisodicResidual codes; unclassified (1 source)Pain, unspecified; Translations: [Pain, unspecified]Onset: 02-15-2025 EpisodicUnclassified (4 sources)CHRN KIDNEY DISEASE STG 3 UNSP; Translations: [CHRN KIDNEY DISEASE STG 3 UNSP]Onset: 02-92-2911Cfiwoyuukmfl (3 sources)CONTACT W/AND (SUSP) EXPOS COVID-19; Translations: [CONTACT W/AND (SUSP) EXPOS COVID-19]Onset: 08-85-5815Wgyqalpsiqjq (1 source)COUGH, UNSPECIFIED; Translations: [COUGH, UNSPECIFIED]Onset: 92-20-0440Miompdexptne (11 sources)Finding of sensation of -53-2962Nklnqasdygte (8 sources)Drug therapy asfotlq44-00-2673Nltaycibajwr (2 sources)Longstanding persistent atrial fibrillation; Translations: [Longstanding persistent atrial fibrillation]Onset: 51-29-6389Fxbksqixkvfh (1 source)Other pericardial effusion (noninflammatory); Translations: [Other pericardial effusion (noninflammatory)]Onset: 04-74-1567Fxliy infection (16 sources)Verruca plantaris; Translations: [Plantar wart]69-16-1204Pnbenafv Viral infection (3 sources)COVID-19; Translations: [COVID-19]Onset: 07-18-2022 Past or Other Problems Problem ClassificationProblemDateDocumented DateEpisodic/ChronicAcute and unspecified renal failure (1 source)Acute kidney failure, unspecified; Translations: [ACUTE KIDNEY FAILURE UNSPECIFIED]Onset: 04-31-4728LantmwohSazlybhgf infection; unspecified site (1 source)Unspecified Escherichia coli [E. coli] as the cause of diseases classified elsewhere; Translations:[UNS E COLI CAUSE DX CLASS ELSEWHERE]Onset: 56-44-1424JltlgqfuUxwvbrw and fatigue (2 sources)Weakness; Translations: [Other fatigue]Onset: 94-75-1723BhddprtdVquqq aftercare (1 source)group home (current) use of aspirin; Translations: [PATTERN LAYOUT WORKER CURRENT USE OF ASPIRIN]Onset: 31-23-0670VqqttsskKdblt aftercare (1 source)group home (current) use of anticoagulants; Translations: [PATTERN LAYOUT WORKER CURRNT USE ANTICOAGULANTS]Onset: 94-89-3597RpbjsnhtMruaf aftercare (1 source)Other longwall foreman (current) drug therapy; Translations: [OTH PATTERN LAYOUT WORKER CURRENT DRUG THERAPY]Onset: 03-86-6059GawokrdxIltae circulatory disease (1 source)Other specified symptoms and signs involving the circulatory and respiratory systems; Translations:[OTH SPEC SX SIGNS INVLV CIRC RS]Onset: 33-37-2598XkuofxyaGiikt connective tissue disease (20 sources)Spasm of cervical paraspinous muscle; Translations: [Other muscle spasm]Onset: 577643-27-6682SreljzsrCbzgp connective tissue disease (20 sources)Neurogenic pain; Translations: [Neuralgia and neuritis, unspecified] Onset: 093546-16-0731WaitibreEavee connective tissue disease (2 sources)Pain of toes of bilateral feet; Translations: [Pain in right toe(s)] 82-10-8551LsoojdpcYmchb connective tissue disease (2 sources)Other symptoms and signs involving the musculoskeletal system; Translations: [Other symptoms and signs involving the musculoskeletal system] Onset: 10-75-5802QgsleisxTijmb lower respiratory disease (2 sources)Shortness of breath; Translations: [Shortness of breath]Onset: 41-91-8812QeyhhuspJayhv nervous system disorders (10 sources)Tremor; Translations: [Tremor, unspecified]Onset: 01-07-2024 74-42-2027FbwfgqulIzxow screening for suspected conditions (not mental disorders or infectious disease) (3 sources)Raised prostate specific antigen; Translations: [Elevated prostate specific antigen [PSA]]Onset: 49-96-6831EzfflykyYazqi skin disorders (6 sources)Asteatosis cutis; Translations: [Xerosis cutis]19-19-7933Jjlzshxy Residual codes; unclassified (1 source)Edema, unspecified; Translations: [EDEMA UNSPECIFIED]Onset: 08-27-2022 EpisodicUnclassified (20 sources)Parkinson's disease; Translations: [Parkinson disease]Onset: 01-07-2024 Resolved: 848439-87-3758KuqpmhxOudzqnqgdqvm (1 source)CHRN KIDNEY DISEASE STG 3 UNSP; Translations: [CHRN KIDNEY DISEASE STG 3 UNSP]Onset: 57-09-9511Xwnsqthxiubt (1 source)CONTACT W/AND (SUSP) EXPOS COVID-19; Translations: [CONTACT W/AND (SUSP) EXPOS COVID-19]Onset: 62-42-6467Whrkchdzqkmi (1 source)Other pericardial effusion (noninflammatory); Translations: [Other pericardial effusion (noninflammatory)]Onset: 48-79-4095Qaqzxbl tract infections (1 source)Urinary tract infection, site not specified; Translations: [UTI SITE NOT SPECIFIED]Onset: 34-65-4809Sfzdrykq Results Test NameValueInterpretationReference YujnmWfzjwpyz48ts [id number] authorization request for Savaysa 30mg. Prior authorization processed and submitted to patient's insurance, awaiting determination from insurance in response to medication coverage. Cover My Meds [place]# [id number]g Memorial HospitalTelephoneon [id number] Nadir Beth 1940 M Date Provider Department Center 08/03/2025 [id number] BRICEÑO Ericka CARD [facility] Family History Problem Relation Age of Onset Coronary artery disease Father Family Status - Relation Status Age at Mother Father DeceasedNormalUniversKettering Memorial HospitalFollow-Upon 08-01-2025 Follow-[id number] Nadir Beth 1940 M Date Provider Department Center 08/01/2025 321-[facility]UTHIE [facility] Comprehensiv Family History Problem Relation Age of Onset Coronary artery disease Father Family Status - Relation Status Age at Mother Father Level of Service:13642 [place] OFFICE/OUTPATIENT ESTABLISHED MOD MDM 30 MIN Reason for Visit and Comments: Electrolyte Disorders [542] Follow-up [156012] - CKDNormalUniversKettering Memorial HospitalOrders Onlyon 98-89-9505Golfkg [id number] Nadir Beth 1940 M Date Provider Department Center 07/31/2025 [id number], HISTORICAL MILKA Dominguez [facility] Family History Problem Relation Age of Onset Coronary artery disease Father Family Status - Relation Status Age at Mother Father DeceasedNormalUniDetwiler Memorial Hospital29on Addended by: HUONG JEAN on: 08/03/2025 08:37 AM Modules accepted: OrdersNormalUniDetwiler Memorial HospitalDocumentationon [id number] Nadir Beth Joy 1940 M Date Provider Department Center 07/30/2025 [id number]-OYQSXHUONG JEAN PHARMACO Medical Pavi Family History Problem Relation Age of Onset Coronary artery disease Father Family Status - Relation Status Age at Mother Father Reason for Visit and Comments: Pharmacist Consult - Referral [Other][facility] Office Visiton 64-13-9433Dvypgl-up [id number] Nadir Beth Joy 1940 [facility] Provider Department Center 07/30/2025 56627-HUBMBRRUY KING MILKA Beckett Family History Problem Relation Age of Onset Coronary artery disease Father Family Status - Relation Status Age at Mother Father Level of Service:60371 [place] OFFICE/OUTPATIENT ESTABLISHED MOD MDM 30 MIN Reason for Visit and Comments: Follow-up [673148] - 1 month follow up. Patient is now in assisted living and they are requesting a check up Valve Disorder [3372] - Aortic valve Atherosclerosis of renal artery [Other] Coronary Artery Disease [187] Bradycardia [857875] Hypertension [286074] Congestive Heart Failure [127] Pulmonary Hypertension [818] Hyperlipidemia [182] Hypertensive heart desease chronic kidney failure stage 1 t [Other] Atrial Fibrillation [80][facility] HospitalOffice Visiton 25-62-5386Pqehxx-up [id number] Nadir Beth 1940 M Date Provider Department Center 06/18/2025 CLARIBEL VILLALOBOS MILKA Beckett Family History Problem Relation Age of Onset Coronary artery disease Father Family Status - Relation Status Age at Mother Father Level of Service:79285 [place] OFFICE/OUTPATIENT ESTABLISHED MOD MDM 30 [facility] HospitalOr[facility] Onlyon 19-07-8953Zhsost [id number] Nadir Beth 1940 M Date Provider Department Center 06/14/2025 [id number], HISTORICAL CARD Alberto Hos Family History Problem Relation Age of Onset Coronary artery disease Father Family Status - Relation Status Age at Mother Father DeceasedNormalUniversKettering Memorial HospitalUrology Office/Clinic Noteon 56-09-8071Kbrmlqc Office/Clinic NoteUrology Office/Clinic Note Chief Complaint pt here for [...] Moderate trabeculations with no bladder stone or tumorsnoted. Prostate volume 64.1 cc. S/p UroLift 6 implants 10/23/24. Palomares placed. Palomares removed 10/25/24. Pt's daughter called 10/23/24 stating pt had blood coming out of his penis. Pt presented to [facility] ER 10/28/24 due to clot retention. Seen in consult by Dr. Singh. 24 Fr three-way palomares placed. CBI initiated. Palomares was removed on 1 01/07/24. Taking Flomax 0.4mg qd which he has [...] Given Patient Refuses SARS-C (more content not included)...[facility] CenterComment on above:Result Comment: Electronically Signed By: LU OLMEDO PA-C\Date and Time Signed: 06/12/2513:19 EDTAmbulatory Visit Summaryon 06-11-2025 Ambulatory Visit SummaryAmbulatory Visit Summary NADIR BETH :1940 Visit Date:06/11/2025 Ambulatory Visit Instructions Your Diagnosis BPH with urinary obstruction Your Care Team Attending Physician - SHARA HENDERSON, LU Sweet Primary Care Physician - Van Youssef MD This Is Your Medications List tamsulosin (Flomax) Contact prescribing physician if questions or concerns aspirin (Aspirin Low Dose) bacitracin topical (bacitracin top 500 units/g Oint PACKET) betamethasone-clotrimazole topical (betamethasone-clotrimazole Top 0.05%-1% Crm 15 gram) budesonide-formoterol (Symbicort) [...] LOUISE MD Where: [facility] [address], [address] [place] [address]- Medications What How Much When Why Instructions Unchanged tamsulosin (Flomax) 0.4 Milligram By Mouth Every day Unchanged aspirin (Aspirin Low Dose) 81 Milligram Every day Contact prescribing physician if questions or concerns Unchanged bacitracin topical (bacitracin top 500 units/ g Oint PACKET) Topical 2 times a day Contact prescribing physician if questions or concerns Unchanged betamethasone-clotrimazole topical (betamethasone-clotrimazole Top 0.05%-1% Crm 15 gram) Contact prescribing [...] times a day Contact prescribing physician if questionsor concerns Unchanged dapagliflozin (Farxiga) 5 Milligram By [...] 45 Milligram By Mouth Every day Contact prescribingphysician if questions or concerns Unchanged potassium chloride (Klor-Con) 20 Milliequivalent By Mouth Every day Contact prescribing physician if questions or concerns Unchanged prednisoLONE ophthalmic (Pred Mild) 1 Drops Both eyes 2 times a day Contact prescribing physician if questions or concerns Unchanged primidone (primidone 50 mg Tab) 2 Tablets By Mouth 2 times a day Contact prescribing physician i (more content not included)...[facility]36on [id number] called patient lvm to contact office back to reschedule appointment with .[facility] HospitalOffice [facility]iton 99-27-5494Udjcnv- up [id number] Nadir Beth 1940 M Date Provider Department Center 05/28/2025 RUY ESQUIVEL Family History Problem Relation Age of Onset Coronary artery disease Father Family Status - Relation Status Age at Mother Father Level of Service:08325 [place] OFFICE/OUTPATIENT ESTABLISHED MOD MDM 30 [facility] HospitalOrders Onlyon 55-49-5699Bmcxef [id number] Nadir Beth 1940 M Date Provider Department Center 05/28/2025 RUY ESQUIVEL Family History Problem Relation Age of Onset Coronary artery disease Father Family Status - Relation Status Age at Mother Father DeceasedNormalUniDetwiler Memorial [id number] Case Management Update Barriers to Discharge: Patient is to discharge to alf facility [facility] today. Stretcher transport has been established with [facility], rock picker time 1934. Diet: Dietary Orders (From [...] Request Once Comments: Omelet with green pepper, stateless cheese and onion Wheat toast Sausage Raisin bran Milk Decaf coffee 05/17/25 0802 05/16/25 1553 Special Kitchen Request Once Comments: [place] burger with cheese On the side: tomato, [...] Request Once Comments: Omelet with green pepper, stateless cheese and onion, 1 slice wheat toast, [...] Reason for OT? Answer: gait abnormality 05/10/25 0411[facility]al[facility]30The patient is Moderately Stable - Low risk [...] - Adult Goal: Maintains hematologic stability Outcome: ProgressingNormalUniversity of [facility] WITH AUTO DIFFERENTIALon 55-09-5959Qfpnmpybmrx distribution width (RBC) [Ratio]19.8 %High 11.5-15.0UnSumma HealthComment on above:Performed By: #### [id number] #### [facility] ([facility]) [address] [place], [place] [address]HPKXNMXDPVP MEAN CORPUSCULAR HEMOGLOBIN CONCENTRATION (G/DL) BY ZEKLYXBPK40.4 g/dLLow32.0-35.0UnSumma HealthComment on above:Performed By: #### [id number] #### [facility] ([facility]) [address] [place], [place] [address]Odwofangzr (Bld) [Volume fraction]34.2 %Low39.0-50.0UnSumma HealthComment on above:Performed By: #### [id number] #### [facility] ([facility]) [address] [place], [place] [address]Nbkrslanqi (Bld) [Mass/Vol]10.4 g/dLLow13.0-17.0UnSumma HealthComment on above:Performed By: #### [id number] #### [facility] ([facility]) [address] [place], [place] [address]PCG (RBC) [Entitic mass]25.6 pgLow27.0-33.0UnSumma HealthComment on above:Performed By: #### [id number] #### [facility] ([facility] [address] [place], [place] [address]IYK (RBC) [Entitic vol]84.2 sEOygaqi03.0-98.0[facility] [place] Medical CenterComment on above:Performed By: #### [id number] #### [facility] ([facility]) [address] [address]ALVT (PER 100 WBCS) BY AUTOMATED COUNT0.0 %Lmpjwf1RraovqxerkSumma HealthComment on above:Performed By: #### [id number] #### [facility] ([facility]) [address] [address]NZKYLZWGY (10*3/UL) IN BLOOD AUTOMATED [id number] 10*3/uLNormal 150-400UnSumma HealthComment on above:Performed By: #### [id number] #### [facility] ([facility]) [address] [address]ZZP (Bld) [#/Vol]4.06 10*6/uLLow4.20-5.70UnSumma HealthComment on above:Performed By: #### [id number] #### [facility] ([facility]) [address] [address]BBN (Bld) [#/Vol]12.14 10*3/uLHigh4.00-10.60UnSumma HealthComment on above:Performed By: #### [id number] #### [facility] ([facility]) [address] [address]RDYVPFXLGZZHT METABOLIC PANELon 21-09-2135OMQXTCI AMINOTRANSFERASE (SGPT) (U/L) IN SER/PLAS<0Asv0-22OhvtzfqlpgSumma HealthComment on above:Performed By: #### [id number] ####[facility] ([facility])[address] [address]Erltinw [Mass/Vol]3.4 g/dLLow3.5-5.7 [facility]ier HospitalComment on above:Performed By: #### [id number] ####[facility] ([facility])[address] [address]SMP [Catalytic activity/Vol]68 U/ZGfrfrs81-422AfkrkoyqinSumma HealthComment on above:Performed By: #### [id number] ####[facility] ([facility])[address] [place], [place] [address]Xgybu gap [Moles/Vol]15 mmol/LNormal7-20UnSumma HealthComment on above:Performed By: #### [id number] ####[facility] ([facility])[address] [place], [place] [address]DAI [Catalytic activity/Vol]13 U/L Dlcgpd42-55CzpkpvyygmSumma HealthComment on above:Performed By: #### [id number] ####[facility] ([facility])[address] [place] [address] Bilirubin [Mass/Vol]0.5 mg/dLNormal0.3-1.0UnSumma Health Comment on above:Performed By: #### [id number] ####[facility] ([facility])[address] [place], [place] [address]Nfbhwxv [Mass/Vol]8.6 mg/dLNormal8.6-10.3UnSumma HealthComment on above:Performed By: #### [id number] ####[facility] ([facility])[address] [place], [place] [address]Wkopudrm [Moles/Vol]104 mmol/SPghtqa64-728NinblkfqawSumma HealthComment on above:Performed By: #### [id number] ####[facility] ([facility])[address] [place] [address] CO2 [Moles/Vol]25 mmol/HSdcydc17-08RwqovqmgzuSumma HealthComment on above:Performed By: #### [id number] ####[facility] ([facility])[address] [place], [place] [address]Zconsncdmd [Mass/Vol]1.73 mg/dLHigh0.70-1.30UnSumma HealthComment on above:Performed By: #### [id number] ####[facility] ([facility])[address] [place], [place] [address]YPUKBIVJFM FILTRATION RATE ML/MIN/1.73 SQ M.IAFNFMPBA42.0 mL/min/1.73m*2Low>60.0UnSumma HealthComment on above:Result Comment: [facility]???s estimated glomerular filtration rate (eGFR) will [...] potential consequences that do not disproportionately affect anyone group of individuals.Performed By: #### [id number] ####[facility] ([facility])[address] [place], [place] [address]Otxopod [Mass/Vol]239 mg/qGBivq43-994UjbkohdotzSumma HealthComment on above:Performed By: #### [id number] ####[facility] ([facility])[address] [place], [place] [address]Lnqdpjkiq [Moles/Vol]3.9 mmol/LNormal3.5-5.1UnSumma HealthComment on above:Performed By: #### [id number] ####[facility] ([facility])[address] [place], [place] [address]Ixrzzzn [Mass/Vol]6.3 g/dLNormal 6.0-8.3UnSumma HealthComment on above:Performed By: #### [id number] ####[facility] ([facility])[address] [place], [place] [address]Jkymtz [Moles/Vol]140 mmol/TAuyikp245-891LbcswamnfwSumma HealthComment on above:Performed By: #### [id number] ####[facility] ([facility])[address] [place], [place] [address]Tnmq nitrogen [Mass/Vol]38 mg/dLHigh7-25UnSumma HealthComment on above:Performed By: #### [id number] ####[facility] ([facility])[address] [place] [address]MDYO NITROGEN/CREATININE (MASS RATIO) IN SER/PLAS22.0NormalUniversity Kettering Health PrebleComment on above: Performed By: #### [id number] ####[facility] ([facility])[address] [address]AFmr 11-07-5588WC Attestation signed by Nikolas Gonzalez MD at [...] was admitted as a direct transfer from [place] on 05/10/2025 for acute on chronic heart failure. 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 He presented to the ED on the advice of his physician following an increase in lower extremity edema with associated labs showing a BNP 6200. In the [place] ED he was found to have pulmonary vascular congestion with right sided pleural effusion on chest x-ray, and found to be hypertensive at 190/68, and EKG showed A-fib, he was initially managed medically with lasix and antihypertensives prior to transfer. Patient follows up with Dr. Bland who had scheduled right heart cath on 05/10/2025. At [facility] echo was performed which was unable [...] Admission: Cardiology and cardiothoracic surgery Dear MD Mikael, Nadir is advised to follow up with you within 1-2 weeks. Items to follow up in ambulatory setting: CHEST X-RAY in one week Follow-up with: Cardiology and Pulmonary Scheduled appointments: Future Appointments Date Time Provider Department Center 05/28/2025 2:20 PM Ruy Sullivan CNP MILKA Beckett 06/15/2025 10:30 AM [facility] CV ECHO ROOM 2 HV [facility] [place] [facility] 06/18/2025 11:30 AM Claribel Cisneros MD [...] known as: Lasix glimepi (more content not included)...NormalUnSumma Health MANUAL DIFFERENTIALon 35-77-7613FZFOUHCHV (10*3/UL) IN BLOOD BY CALCULATION0.05 10*3/uLNormal0.00-0.20UnSumma HealthComment on above: Performed By: #### [id number] #### [facility] ([facility]) [address] [place], [place] [address]XMKJZIHET/100 LEUKOCYTES IN BLOOD BY AUTOMATED COUNT0.4 %Normal 0.0-1.0UnSumma HealthComment on above:Performed By: #### [id number] #### [facility] ([facility]) [address] [place] [address]PXLIMRINUUB (10*3/UL) IN BLOOD BY CALCULATION0.05 10*3/uLNormal 0.00-0.50UnSumma HealthComment on above:Performed By: #### [id number] #### [facility] ([facility]) [address] [place] [address]TXSPAVZYVXZ/100 LEUKOCYTES IN BLOOD BY AUTOMATED COUNT0.4 % Normal0.0-6.0UnSumma HealthComment on above:Performed By: #### [id number] #### [facility] ([facility]) [address] [facility] [place] [place] [address]ZIMISBBS GRANULOCYTES (10*3/UL) IN BLOOD BY CALCULATION0.07 10*3/uLNormal0.00-0.20UnSumma HealthComment on above: Performed By: #### [id number] #### [facility] ([facility]) [address] [place] [address]EILURZAU GRANULOCYTES/100 LEUKOCYTES IN BLOOD BY AUTOMATED COUNT 0.6 %Normal0.0-1.0UnSumma HealthComment on above:Performed By: #### [id number] #### [facility] ([facility]) [address] [place] [address]EBCAGXQFOFC (10*3/UL) IN BLOOD BY CALCULATION0.87 10*3/uLLow 1.20-4.00UnSumma HealthComment on above:Performed By: #### [id number] #### [facility] ([facility]) [address] [facility] [place] [address]QDTUONKWVFS/100 LEUKOCYTES IN BLOOD BY AUTOMATED COUNT7.2 %Low 20.0-45.0UnSumma HealthComment on above:Performed By: #### [id number] #### [facility] ([facility]) [address] [facility] [place] [address]OIHENRDVJ (10*3/UL) IN BLOOD BY CALCUATION1.92 10*3/uLHigh 0.10-1.00UnSumma HealthComment on above:Performed By: #### [id number] #### [facility] ([facility]) [address] [facility] [place], [place] [address]VFNQPWSBM/100 LEUKOCYTES IN BLOOD BY AUTOMATED COUNT15.8 %High 5.0-12.0UnSumma HealthComment on above:Performed By: #### [id number] #### [facility] ([facility]) [address] [facility] [place], [place] [address]LRRPPLSPWCI (10*3/UL) IN BLOOD BY CALCULATION9.2 10*3/uLHigh 1.6-7.6UnSumma HealthComment on above:Performed By: #### [id number] #### [facility] ([facility]) [address] [facility] [place], [place] [address]MMDBZNKXMCW/100 LEUKOCYTES IN BLOOD BY AUTOMATED COUNT75.6 %High 40.0-72.0UnSumma HealthComment on above:Performed By: #### [id number] #### [facility] ([facility]) [address] [place], [place] [address]VCRMAVHIhu 02-56-6983WCFMQGHZEesfni called to BRAND[facility] at [facility].BrooklandUnSumma HealthNURSNOTEPatient Name: Nadir Beth : 1940 Primary Care [...] Liz Joshi RN Rapid Response Team Nurse [phone] 05/17/2025 10:35 [facility] OhioNURSNOTEPatient Name: Nadir Beth : 1940 Primary Care Physician: Van Youssef MD Admission Date: 05/10/2025 RAPID RESPONSE TEAM ICU TRANSFER FOLLOW-UP NOTE SUBJECTIVE / OBJECTIVE: Follow-up for previous transfer out of the ICU notification for 05/16 at 1504. ASSESSMENT / INTERVENTIONS: Recent Vital Signs: Vitals: 05/16/25 1505 05/16/25 1601 05/16/25199905/17/25 0000 BP: 130/57 141/68 135/55 111/51 Pulse: 85 86 76 Resp: 14 27 09 19 Temp: 36.4 ???C (97.5 ???F) 36.5 [...] time, but encouraged to reach out to LOAD PLANNER if anything changes. Marc Araiza RN Rapid Response Team Nurse [phone] 05/17/2025 2:32 AMNormalUnSumma HealthPOCT GLUCOSE METER UNSOLICITED RESULTSon 76-40-4167Dkfaljf [Mass/Vol]331 mg/pGNgvv63-261AqhefokgzuSumma HealthComment on above:Order Comment: Waived Testing in the ED is performed under the ED CLIA certificate #[id number].Result Comment: [email or web address] Performed By: #### [id number] ####[facility] ([facility])[address] [place], [place] [address]Vbjkjuc [Mass/Vol]310 mg/uYLgjf12-454NraakkgoaeSumma HealthComment on above:Order Comment: Waived Testing in the ED is performed under the ED CLIA certificate #[id number].Result Comment: [email or web address] Performed By: #### [id number] ####[facility] ([facility])[address] [place], [place] [address]Xbkskyt [Mass/Vol]235 mg/pTLtbl90-020GxyltsaonpSumma HealthComment on above:Order Comment: Waived Testing in the ED is performed under the ED CLIA certificate #[id number].Result Comment: [email or web address] Performed By: #### [id number] ####[facility] (BIJAN)[address] [place], [place] [address]wd [id number] patient is Moderately Stable - Low risk [...] and behaviors that affect risk of falls [place] fall precautions as indicated by assessment Educate [...] Outcome: Progressing Flowsheets (Take (more content not included)...[facility]30Daily Case Management Update Barriers to Discharge: Pending clinical course and clearance. POD #1 TAVR. Needs PT & OT to reevaluate to make sure patient can still return home. Slight ARTUR. ECHO today. Blood cultures pending. Diet: Dietary Orders (From admission, onward) Start Ordered 05/16/25 1553 Special Kitchen Request Once Comments: [place] burger with cheese On the side: tomato, [...] Request Once Comments: Omelet with green pepper, stateless cheese and onion, 1 slice wheat toast, [...] Reason for OT? Answer: gait abnormality 05/10/25 0411NormalUniversSuburban Community [facility] 54-54-9845IOXURCECD PARTIAL THROMBOPLASTIN TIME IN PPP BY COAGULATION ASSAY77.8 SecondsHigh 25.0-35.0UnSumma HealthComment on above:Result Comment: Clinical significance of the APTT is questionable in the presence of heparin. Performed By: #### [id number] #### [facility] ([facility]) [address] [place], [place] [address]HILLBROJH PARTIAL THROMBOPLASTIN TIME IN PPP BY COAGULATION ASSAY63.8 YqxuiszLyjq45.0-35.0UnSumma HealthComment on above:Result Comment: Clinical significance of the APTT is questionable in the presence of heparin.Performed By: #### [id number] #### [facility] ([facility]) [address] [place], [place] [address]AOVQX METABOLIC PANELon 91-72-9922Ouwxl gap [Moles/Vol]19 mmol/L Normal7-20UnSumma HealthComment on above:Performed By: #### [id number] #### [facility] ([facility]) [address] [place], [place] [address]Uorzbcw [Mass/Vol]8.6 mg/dLNormal8.6-10.3UnSumma HealthComment on above:Performed By: #### [id number] #### [facility] ([facility]) [address] [place], [place] [address]Ysjucwtu [Moles/Vol]103 mmol/MFcwdmn24-871IukdorbmxxSumma HealthComment on above:Performed By: #### [id number] #### [facility] ([facility]) [address] [place], [place] [address]XX1 [Moles/Vol]22 mmol/EQndfdo06-29YwouwtqcboSumma HealthComment on above:Performed By: #### [id number] #### [facility] ([facility]) [address] [place], [place] [address]Ozzlvecyed [Mass/Vol]1.71 mg/dLHigh0.70-1.30UnSumma HealthComment on above:Performed By: #### [id number] #### [facility] ([facility]) [address] [place] [address]UNLLIYWKFF FILTRATION RATE ML/MIN/1.73 SQ M.DCXTWBIFH38.5 mL/min/1.73m*2Low>60.0UnSumma HealthComment on above:Result Comment: [facility]???s estimated glomerular filtration rate (eGFR) will [...] potential consequences that do not disproportionately affect anyone group of individuals.Performed By: #### [id number] #### [facility] ([facility]) [address] [place] [address]Rwpketm [Mass/Vol]222 mg/iCIxlh71-837CnlqfmcdecSumma HealthComment on above:Performed By: #### [id number] #### [facility] ([facility]) [address] [place] [address]Qurfghfxe [Moles/Vol]4.2 mmol/LNormal3.5-5.1UnSumma HealthComment on above:Performed By: #### [id number] #### [facility] ([facility]) [address] [place] [address]Xthged [Moles/Vol]140 mmol/WIswelq083-162EdufaejbugSumma HealthComment on above:Performed By: #### [id number] #### [facility] ([facility]) [address] [place] [address]Dydu nitrogen [Mass/Vol]41 mg/dLHigh7-25UnSumma HealthComment on above:Performed By: #### [id number] #### [facility] ([facility]) [address] [place] [address]MLCE NITROGEN/CREATININE (MASS RATIO) IN SER/PLAS24.0Normal [facility] HospitalComment on above:Performed By: #### [id number] #### [facility] ([facility]) [address] [place] [address]WMKSE CULTUREon 16-62-7060Reebphhp identified Cx Nom (Bld)No growth at 5 daysNormalUniDetwiler Memorial HospitalComment on above:Order Comment: From a different site than #1.Performed By: #### [id number] ####[facility] ([facility])[address] [place] [address]Dwoavnswd By: #### [id number] #### [facility] ([facility]) [address] [place] [address]FCItn 08-45-7793Gqsjverojlb distribution width (RBC) [Ratio]19.5 %High11.5-15.0UnSumma HealthComment on above:Performed By: #### [id number] #### [facility] ([facility]) [address] [place] [address]QPAACZJQQCZ MEAN CORPUSCULAR HEMOGLOBIN CONCENTRATION (G/DL) BY XIIDRXERR92.2 g/dLLow32.0-35.0UnSumma HealthComment on above:Performed By: #### [id number] #### [facility] ([facility]) [address] [place], [place] [address]Pieupdcans (Bld) [Volume fraction]33.1 %Low39.0-50.0UnSumma HealthComment on above:Performed By: #### [id number] #### [facility] ([facility]) [address] [place], [place] [address]Mdmxizkacs (Bld) [Mass/Vol]10.0 g/dLLow13.0-17.0UnSumma HealthComment on above:Performed By: #### [id number] #### [facility] ([facility]) [address] [facility] [place] [address]EYF (RBC) [Entitic mass]25.4 pgLow27.0-33.0UnSumma HealthComment on above:Performed By: #### [id number] #### [facility] ([facility]) [address] [place] [address]PVD (RBC) [Entitic vol]84.0 rKVyuitw76.0-98.0UnSumma HealthComment on above:Performed By: #### [id number] #### [facility] ([facility]) [address] [place], [place] [address]RHLLHBOJI (10*3/UL) IN BLOOD AUTOMATED [id number] 10*3/uLNormal 150-400UnSumma HealthComment on above:Performed By: #### [id number] #### [facility] ([facility]) [address] [place] [address]CMH (Bld) [#/Vol]3.94 10*6/uLLow4.20-5.70UnSumma HealthComment on above:Performed By: #### [id number] #### [facility] ([facility]) [address] [place], [place] [address]QBW (Bld) [#/Vol]14.93 10*3/uLHigh4.00-10.60UnSumma HealthComment on above:Performed By: #### [id number] #### [facility] ([facility]) [address] [place], [place] [address]Buepko Onlyon 38-64-7771Nfqfsi [id number] Nadir lin 1940 M Date Provider Department Center 05/16/2025 [facility] [place] [facility] No family history on fileNormalUniversity Kettering Health PreblePOCT GLUCOSE METER UNSOLICITED RESULTSon 04-60-7481Xbbodii [Mass/Vol]374 mg/sQLwkf25-130 [facility] HospitalComment on above:Order Comment: Waived Testing in the ED is performed under the ED CLIA certificate #[id number].Result Comment: [email or web address] By: #### [id number] #### [facility] [address] [place], [place] [address]Gsvinzm [Mass/Vol]292 mg/yQQwae10-659YvqqbfqdlxSumma HealthComment on above:Order Comment: Waived Testing in the ED is performed under the ED CLIA certificate #[id number].Result Comment: [email or web address] Performed By: #### [id number] #### [facility] ([facility]) [address] [place], [place] [address]Zldvfxu [Mass/Vol]254 mg/rKEyyq58-142HadumidorlSumma HealthComment on above:Order Comment: Waived Testing in the ED is performed under the ED CLIA certificate #[id number].Result Comment: [email or web address] Performed By: #### [id number] #### [facility] ([facility]) [address] [facility] [place], [place] [address]Uqtpwrl [Mass/Vol]272 mg/iVBrnt86-157FepnqdufhfSumma HealthComment on above:Order Comment: Waived Testing in the ED is performed under the ED CLIA certificate #[id number].Result Comment: [email or web address] Performed By: #### [id number] #### [facility] ([facility]) [address] [place], [place] [address]82qe 12-22-382412Sxmnf Case Management Update Multidisciplinary rounds have been completed. Barriers to Discharge: Patient to go for TAVR Today. Discharge dispo: pending clinical course, Prior to Operation PT/OT rec Patient is able to return to prior living environment (Presents from SNF). Patient is from [facility], with tentative plan to return when medically ready. Diet: Dietary Orders (From admission, onward) Start Ordered 05/15/25 0001 Diet NPO Diet effective midnight Comments: Sips with medications Question: Reason for NPO: Answer: Operation/Procedure 05/14/25 1521 05/14/25 0631 Special Kitchen Request Once Comments: Omelet with green pepper, stateless cheese and onion, 1 slice wheat toast, [...] Question: Reason for OT? Answer: gait abnormality 05/10/254[address]NormalUniversity [facility]30The patient is Moderately Stable - Low risk [...] swelling over the next 3 months Outcome: ProgressingNormalUniversity of [facility] 05-15-2025 ACTIVATED PARTIAL THROMBOPLASTIN TIME IN PPP BY COAGULATION ASSAY73.2 Seconds High25.0-35.0UnSumma HealthComment on above:Result Comment: Clinical significance of the APTT is questionable in the presence of heparin. Performed By: #### [id number] #### [facility] ([facility]) [address] [place], [place] [address]WGAUCVQKR PARTIAL THROMBOPLASTIN TIME IN PPP BY COAGULATION ASSAY51.8 WfeoecuZcvd52.0-35.0UnSumma HealthComment on above:Result Comment: Clinical significance of the APTT is questionable in the presence of heparin.Performed By: #### [id number] #### [facility] ([facility]) [address] [place], [place] [address]RVOIM METABOLIC PANELon 64-87-9437Gckzo gap [Moles/Vol]16 mmol/L Normal7-20UnSumma HealthComment on above:Performed By: #### [id number] #### [facility] ([facility]) [address] [place], [place] [address]Yipnpbv [Mass/Vol]8.9 mg/dLNormal8.6-10.3UnSumma HealthComment on above:Performed By: #### [id number] #### [facility] ([facility]) [address] [facility] [place] [address]Lkpezclb [Moles/Vol]99 mmol/VTgkxxc69-201EshwvlgeklSumma HealthComment on above:Performed By: #### [id number] #### [facility] ([facility]) [address] [place] [id number] [Moles/Vol]27 mmol/IJbmkrt08-57ImhrtjnkhfSumma HealthComment on above:Performed By: #### [id number] #### [facility] ([facility]) [address] [place] [place] [address]Yqpswnisha [Mass/Vol]1.61 mg/dLHigh0.70-1.30UnSumma HealthComment on above:Performed By: #### [id number] #### [facility] ([facility]) [address] [place] [place] [address]RDTZDIZLGP FILTRATION RATE ML/MIN/1.73 SQ M.ESANEINTA73.4 mL/min/1.73m*2Low>60.0UnSumma HealthComment on above:Result Comment: [facility]???s estimated glomerular filtration rate (eGFR) will [...] potential consequences that do not disproportionately affect anyone group of individuals.Performed By: #### [id number] #### [facility] ([facility]) [address] [place] [place] [address]Ofddxmk [Mass/Vol]255 mg/vUUcvy17-156AndgjwpkpdSumma HealthComment on above:Performed By: #### [id number] #### [facility] ([facility]) [address] [place] [address]Kqeeuuemm [Moles/Vol]4.5 mmol/LNormal3.5-5.1UnSumma HealthComment on above:Performed By: #### [id number] #### [facility] ([facility]) [address] [place] [address]Eugdup [Moles/Vol]137 mmol/ZVdybdl042-466TguvsaogqsSumma HealthComment on above:Performed By: #### [id number] #### [facility] ([facility]) [address] [place] [address]Cxof nitrogen [Mass/Vol]34 mg/dLHigh7-25UnSumma HealthComment on above:Performed By: #### [id number] #### [facility] ([facility]) [address] [place] [address]SPRA NITROGEN/CREATININE (MASS RATIO) IN SER/PLAS21.1Normal [facility]ier HospitalComment on above:Performed By: #### [id number] #### [facility] ([facility]) [address] [place] [address]RUDfz 48-20-9155Meolarrjknz distribution width (RBC) [Ratio]19.0 %High11.5-15.0UnSumma HealthComment on above:Performed By: #### [id number] #### [facility] ([facility]) [address] [place] [address]QBIBGHOOTLD MEAN CORPUSCULAR HEMOGLOBIN CONCENTRATION (G/DL) BY EBAJUCBTR82.7 g/dLLow32.0-35.0UnSumma HealthComment on above:Performed By: #### [id number] #### [facility] ([facility]) [address] [place], [place] [address]Frqaxpvqpv (Bld) [Volume fraction]33.6 %Low39.0-50.0UnSumma HealthComment on above:Performed By: #### [id number] #### [facility] ([facility]) [address] [place], [place] [address]Esbetvcrjt (Bld) [Mass/Vol]10.3 g/dLLow13.0-17.0UnSumma HealthComment on above:Performed By: #### [id number] #### [facility] ([facility]) [address] [place] [address]WYG (RBC) [Entitic mass]25.2 pgLow27.0-33.0UnSumma HealthComment on above:Performed By: #### [id number] #### [facility] ([facility]) [address] [place] [place] [address]QLZ (RBC) [Entitic vol]82.4 rBApmmzj84.0-98.0UnSumma HealthComment on above:Performed By: #### [id number] #### [facility] ([facility]) [address] [place] [address]ELMWTNMMU (10*3/UL) IN BLOOD AUTOMATED HADSR484 10*3/uLNormal 150-400UnSumma HealthComment on above:Performed By: #### [id number] #### [facility] ([facility]) [address] [place] [place] [address]LRQ (Bld) [#/Vol]4.08 10*6/uLLow4.20-5.70UnSumma HealthComment on above:Performed By: #### [id number] #### [facility] ([facility]) [address] [place] [address]RRQ (Bld) [#/Vol]12.04 10*3/uLHigh4.00-10.60UnSumma HealthComment on above:Performed By: #### [id number] #### [facility] ([facility]) [address] [address]WQbq 32-41-5079VH Attestation signed by García Muir MD at [...] Beth Age - 85 y.o. - 1940 [facility] # - [id number] Date of Admission - 05/10/2025 2:37 AM History of Present Illness Nadir Beth is an 85 y.o. male with a PMH of HFpEF, paroxysmal A-fib on Xarelto, CVA, T2DM, hypertension, renal artery stenosis left renal stent, and hyperlipidemia who was admitted as a direct transfer from [place] on 05/10/2025 for acute on chronic heart failure. 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 He presented to the ED on the advice of his physician following an increase in lower extremity edema with associated labs showing a BNP 6200. In the [place] ED he was found to have pulmonary vascular congestion with right sided pleural effusion on chest x-ray, and found to be hypertensive at 190/68, initially managed medically with lasix and antihypertensives prior to transfer. At [facility] echo was performed which was unable [...] 101 CO2 mmol/L 2 (more content not included)...[facility] reviewed. The patient was examined and there [...] his family members and they agreed to TAVR.[facility]'s HospitalNURSNOTEon 80-67-1957DMLINJQPSxcmsp called to Karen OTERO on MICU.[facility] HospitalOPNOTEon 95-72-6561IPXNHXOAQG Operative Note Date: 05/15/2025 Location: [facility] (Cath) Name: Nadir Beth, : [...] the right common femoral artery using two 6-Bhutanese ProGlide devices. Angio-Seal vascular closure in the left common femoral artery. Placement of SENTINEL cerebral embolic protection device. OPERATORS: Interventional Cardiology Transportation Agent: Claribel Cisneros MD Cardiac Surgery Transportation Agent: Negro Lopez MD Nail Feeder Interventional Cardiology Transportation Agent: Aissatou Hughes METHODS: Procedure was explained to the patient with risks and benefits. he signed informed consent. he was brought to bean sprout laborer in a fasting state. The procedure was performed in the cardiac bean sprout laborer under conscious sedation. The right wrist area was prepped and draped in usual fashion. Access was obtained using ultrasound guidance and micropuncture technique in the right radial artery and a 6-Bhutanese x 11 cm Hydrophilic sheath was placed. Verapamil was given through the sheath. Both groin areas, and the right neck area were prepped and draped in usual fashion. Ultrasound guidance was used for micropuncture access in the right internal jugular vein and a 6-Bhutanese x 11 cm introducer sheath was secured in place. Micropuncture technique and ultrasound guidance were used for access in the right common femoral artery and inner cannula angiography was performed followed by upsizing to a 6-Bhutanese x 11 cm sheath. The same was done for the access in the left common femoral artery. At this time, we proceeded with the preclosure in the right common femoral artery using 2 crossing Perclose devices and the access was then upsized over a wire to a 10-Bhutanese sheath. A 5-Bhutanese balloon-tipped pacemaker wire was advanced through the internal jugular vein sheath to the right ventricular apex and adequate capture was confirmed. Heparin was given intravenously and therapeutic ACT confirmed during the rest of the procedure and additional heparin given as needed. Through the left common femoral sheath, an angled 6-Bhutanese pigtail catheter was then advanced to the ascending aorta and placed in the noncoronary cusp. Aortic root angiography was performed in the coplanar view as determined by prior CT scan measurements. A 6-Bhutanese IM diagnostic catheter was then advanced through the right radial sheath and then navigated using an 0.035 inch wire to the ascending aorta and this was used to place an exchange length cinvolveslam 0.014 inch wire. The wire was advanced to the left carotid artery. A [place] device was then prepped using standard techniques and then advanced. The proximal filter was deployed in the innominate artery followed by deployment of the distal filter. The [place] device was then secured in place. The right common femoral access was then upsized using an exchange length Lunderquist wire [which was placed through a multipurpose catheter] to the 14-Bhutanese Le E-sheath. The sheath was secured in place. A 6-Bhutanese AL1 diagnostic catheter was advanced via the E-sheath, and using a straight stiff Glidewire, the aortic valve was crossed and the catheter was advanced in the left ventricular cavity, and using an exchange length J-wire, a 6-Bhutanese angled pigtail catheter was advanced to make [...] retracted. The delivery c (more content not included)...NormalUnSumma HealthPOCT GLUCOSE METER UNSOLICITED RESULTSon 65-15-0346Oozmkub [Mass/Vol]193 mg/fWZlur74-700HuwoykvbgeSumma HealthComment on above:Order Comment: Waived Testing in the ED is performed under the ED CLIA certificate #[id number].Result Comment: onascvk8Uptcdbivq By: #### [id number] #### [facility] ([facility]) [address] [place], [place] [address]Ohzxaxs [Mass/Vol]334 mg/kUJoai31-283HbgnttontfSumma HealthComment on above:Order Comment: Patient had pre procedure medications already for cathResult Comment: bckgage7Jylpnuerw By: #### [id number] ####[facility] ([facility])[address] [place] [address]Aynmjyo [Mass/Vol]288 mg/qHHgip78-177BvdgpqcftzSumma HealthComment on above:Order Comment: Waived Testing in the ED is performed under the ED CLIA certificate #[id number].Result Comment: [email or web address] By: #### [id number] #### [facility] ([facility] [address] [place], [place] [address]Doeqljs [Mass/Vol]351 mg/aBRvjm51-989IupitnixdxParkview Health Montpelier HospitalComment on above:Order Comment: Waived Testing in the ED is performed under the ED CLIA certificate #[id number].Result Comment: clarcom Performed By: #### [id number] #### [facility] ([facility]) [address] [place], [place] [address] [id number] Case Management Update Multidisciplinary rounds have been [...] for patient to discharge to [facility] when medically ready. Diet: Dietary Orders (From admission, onward) Start Ordered 05/14/25 0631 Special Kitchen Request Once Comments: Omelet with green pepper, stateless cheese and onion, 1 slice wheat toast, [...] Reason for OT? Answer: gait abnormality 05/10/25 041NormalUnivers[facility]30The patient is Moderately Stable - Low risk [...] swelling over the next 3 months Outcome: ProgressingNormalUniversity of [facility] 05-14-2025 ACTIVATED PARTIAL THROMBOPLASTIN TIME IN PPP BY COAGULATION ASSAY57.1 Seconds High25.0-35.0UnSumma HealthComment on above:Result Comment: Clinical significance of the APTT is questionable in the presence of heparin. Performed By: #### [id number] #### [facility] ([employer]) [address] [place], [place] [address]TEIGKYNWF PARTIAL THROMBOPLASTIN TIME IN PPP BY COAGULATION ASSAY33.6 UcjszfhVqevwo09.0-35.0UnSumma HealthComment on above:Order Comment: Baseline aPTT before initiating heparin infusion.Result Comment: Clinical significance of the APTT is questionable in the presence of heparin.Performed By: #### [id number] ####[facility] ([employer])[address] [place], [place] [address]WAPJB METABOLIC PANELon 50-38-4645Hqtvc gap [Moles/Vol]13 mmol/LNormal7-20UnSumma HealthComment on above:Performed By: #### [id number] #### [facility] ([employer]) [address] [place], [place] [address]Xebxmnb [Mass/Vol]8.4 mg/dLLow8.6-10.3UnSumma HealthComment on above:Performed By: #### [id number] #### [facility] ([employer]) [address] [place], [place] [address]Srqbhpap [Moles/Vol]100 mmol/DTzzvpm53-454EniywkyylwSumma HealthComment on above:Performed By: #### [id number] #### [facility] ([facility]) [address] [place] [address]HH0 [Moles/Vol]29 mmol/AEsjemd86-11IsaqiiesqoSumma HealthComment on above:Performed By: #### [id number] #### [facility] ([facility]) [address] [place] [address]Oysqzqpqqy [Mass/Vol]1.74 mg/dLHigh0.70-1.30UnSumma HealthComment on above:Performed By: #### [id number] #### [facility] ([facility]) [address] [place] [address]FEYTUNOHNN FILTRATION RATE ML/MIN/1.73 SQ M.IQYOAACVZ15.7 mL/min/1.73m*2Low>60.0UnSumma HealthComment on above:Result Comment: [facility]???s estimated glomerular filtration rate (eGFR) will [...] potential consequences that do not disproportionately affect anyone group of individuals.Performed By: #### [id number] #### [facility] ([facility]) [address] [place] [address]Kjnesfu [Mass/Vol]186 mg/wIYxvf68-289IynfzbqflbSumma HealthComment on above:Performed By: #### [id number] #### [facility] ([facility]) [address] [place] [address]Gkwardktm [Moles/Vol]3.8 mmol/LNormal3.5-5.1UnSumma HealthComment on above:Performed By: #### [id number] #### [facility] ([facility]) [address] [place], [place] [address]Mloyte [Moles/Vol]138 mmol/AYllstj676-902GlmuqbqicfSumma HealthComment on above:Performed By: #### [id number] #### [facility] ([facility]) [address] [place], [place] [address]Wgbn nitrogen [Mass/Vol]34 mg/dLHigh7-25UnSumma HealthComment on above:Performed By: #### [id number] #### [facility] ([facility]) [address] [place], [place] [address]EFCC NITROGEN/CREATININE (MASS RATIO) IN SER/PLAS19.5Normal [facility] HospitalComment on above:Performed By: #### [id number] #### [facility] ([facility]) [address] [place], [place] [address]XUXCJFFZ COUNTon 00-73-1189KADNMQFRM (10*3/UL) IN BLOOD AUTOMATED JDEZN001 10*3/dGTnrwxm740-522SgqrfjsgjcSumma Health Comment on above:Performed By: #### [id number] #### [facility] ([facility]) [address] [place], [place] [address]DTFY GLUCOSE METER UNSOLICITED RESULTSon 03-00-7868Wzhtfdd [Mass/Vol]303 mg/pIRnjv92-997DrxtcvnzfnSumma HealthComment on above:Order Comment: Waived Testing in the ED is performed under the ED CLIA certificate #[id number].Result Comment: cghnwjw0Zoitbatra By: #### [id number] #### [facility] ([facility]) [address] [place], [place] [address]Eynekie [Mass/Vol]254 mg/pOGjka37-180LilxzjbpycSumma HealthComment on above:Order Comment: Waived Testing in the ED is performed under the ED CLIA certificate #[id number].Result Comment: [email or web address] Performed By: #### [id number] #### [facility] ([facility]) [address] [place], [place] [address]Usqioju [Mass/Vol]225 mg/yOTktk76-312KdyidgugssSumma HealthComment on above:Order Comment: Waived Testing in the ED is performed under the ED CLIA certificate #[id number].Result Comment: ooperac Performed By: #### [id number] ####[facility] ([facility])[address] [place] [address]Otlawbj [Mass/Vol]209 mg/iJNkei64-016EttyebzqfySumma HealthComment on above:Order Comment: Waived Testing in the ED is performed under the ED CLIA certificate #[id number].Result Comment: ooperac Performed By: #### [id number] ####[facility] ([facility])[address] [place] [address]xy 84-45-156341Lch patient is Moderately Stable - Low risk [...] swelling over the next 3 months Outcome: ProgressingNormalUniversity Kettering Health PrebleBASIC METABOLIC PANELon 45-99-4500Xmkxt gap [Moles/Vol]14 mmol/LNormal7-20UnSumma HealthComment on above:Performed By: #### [id number] #### [facility] ([facility]) [address] [place], [place] [address]Disqrhj [Mass/Vol]8.5 mg/dLLow8.6-10.3UnSumma HealthComment on above:Performed By: #### [id number] #### [facility] ([facility]) [address] [place], [place] [address]Rejnlsga [Moles/Vol]99 mmol/WEjgnxm28-559AesuzzxungSumma HealthComment on above:Performed By: #### [id number] #### [facility] ([facility]) [address] [place], [place] [address]ZD5 [Moles/Vol]29 mmol/EEdcdoh67-75DgcoifxtfxSumma HealthComment on above:Performed By: #### [id number] #### [facility] ([facility]) [address] [place], [place] [address]Bgepdehonu [Mass/Vol]1.65 mg/dLHigh0.70-1.30UnSumma HealthComment on above:Performed By: #### [id number] #### [facility] ([facility]) [address] [place], [place] [address]MAQMKIDHRL FILTRATION RATE ML/MIN/1.73 SQ M.UVSVUSVMJ77.2 mL/min/1.73m*2Low>60.0UnSumma HealthComment on above:Result Comment: [facility]???s estimated glomerular filtration rate (eGFR) will [...] potential consequences that do not disproportionately affect anyone group of individuals.Performed By: #### [id number] #### [facility] ([facility]) [address] [place], [place] [address]Mwlzdju [Mass/Vol]206 mg/xHZlyj34-666AtqufhtcunSumma HealthComment on above:Performed By: #### [id number] #### [facility] ([facility]) [address] [place] [address]Zxwxkdwqv [Moles/Vol]3.5 mmol/LNormal3.5-5.1UnSumma HealthComment on above:Performed By: #### [id number] #### [facility] ([facility]) [address] [place] [address]Aqlbsf [Moles/Vol]138 mmol/EFolvsd839-103YamxqmlazbSumma HealthComment on above:Performed By: #### [id number] #### [facility] ([facility]) [address] [place] [address]Paas nitrogen [Mass/Vol]32 mg/dLHigh7-25UnSumma HealthComment on above:Performed By: #### [id number] #### [facility] ([facility]) [address] [place] [address]VMUY NITROGEN/CREATININE (MASS RATIO) IN SER/PLAS19.4Normal [facility] HospitalComment on above:Performed By: #### [id number] #### [facility] ([facility]) [address] [place] [address]HHHrg 27-96-3004Wjneinmhajq distribution width (RBC) [Ratio]18.9 %High11.5-15.0UnSumma HealthComment on above:Performed By: #### [id number] #### [facility] ([facility]) [address] [place] [address]PMGVNBNHPPK MEAN CORPUSCULAR HEMOGLOBIN CONCENTRATION (G/DL) BY DWMSGAOWL24.3 g/dLLow32.0-35.0UnSumma HealthComment on above:Performed By: #### [id number] #### [facility] ([facility]) [address] [place] [address]Cprkryikce (Bld) [Volume fraction]31.3 %Low39.0-50.0UnSumma HealthComment on above:Performed By: #### [id number] #### [facility] ([facility]) [address] [place] [address]Ccgpenlklq (Bld) [Mass/Vol]9.8 g/dLLow13.0-17.0UnSumma HealthComment on above:Performed By: #### [id number] #### [facility] ([facility]) [address] [place] [address]JHT (RBC) [Entitic mass]25.8 pgLow27.0-33.0UnSumma HealthComment on above:Performed By: #### [id number] #### [facility] ([facility]) [address] [place] [address]VPS (RBC) [Entitic vol]82.4 zQJyaqqs80.0-98.0UnSumma HealthComment on above:Performed By: #### [id number] #### [facility] ([facility]) [address] [place] [address]IFRHPECPV (10*3/UL) IN BLOOD AUTOMATED ALDVD564 10*3/uLNormal 150-400UnSumma HealthComment on above:Performed By: #### [id number] #### [facility] ([facility]) [address] [place] [address]QRZ (Bld) [#/Vol]3.80 10*6/uLLow4.20-5.70UnSumma HealthComment on above:Performed By: #### [id number] #### [facility] ([facility]) [address] [place] [address]HMJ (Bld) [#/Vol]10.18 10*3/uLNormal4.00-10.60UnSumma HealthComment on above:Performed By: #### [id number] #### [facility] ([facility]) [address] [place] [address]WSBI GLUCOSE METER UNSOLICITED RESULTSon 41-53-1728Eeqpkjw [Mass/Vol]219 mg/dOWydu03-761EzgdpqcrgwParkview Health Montpelier HospitalComment on above:Order Comment: Waived Testing in the ED is performed under the ED CLIA certificate #[id number].Result Comment: frttjvm1Evnbvduxm By: #### [id number] #### [facility] ([facility]) [address] [place], [place] [address]Mxgezzo [Mass/Vol]277 mg/zXOfja55-443VyzrheimwzSumma HealthComment on above:Order Comment: Patient had pre procedure medications already for cathResult Comment: nkahvxm5Dygzpvleu By: #### [id number] ####[facility] ([facility])[address] [place] [address]Znqmboy [Mass/Vol]274 mg/fMSrnc81-941XpmuftayoiSumma HealthComment on above:Order Comment: Waived Testing in the ED is performed under the ED CLIA certificate #[id number].Result Comment: meqpuzk9Enlweqvuu By: #### [id number] #### [facility] ([facility]) [address] [place], [place] [address]Mqsjhrw [Mass/Vol]222 mg/fWToor34-824FbbbtfjlgiSumma HealthComment on above:Order Comment: Waived Testing in the ED is performed under the ED CLIA certificate #[id number].Result Comment: [email or web address] Performed By: #### [id number] #### [facility] ([facility]) [address] [place], [place] [address] 29-36-776325Vea patient is Moderately Stable - Low risk of patient condition declining or worsening The patient's goals for the shift include Comfort, rest The clinical goals for the shift include Stable vitals, comfortNormalUniversity of [facility]30The patient is Moderately Stable - Low risk [...] swelling over the next 3 months Outcome: ProgressingNormalUniversity of [facility]30The patient is Moderately Stable - Low risk [...] swelling over the next 3 months Outcome: ProgressingNormalUniversKettering Memorial HospitalANTI-XA (HEPARIN LEVEL)on 20-59-0500XIYQHXP UNFRACTIONATED (U/ML) IN PPP BY CHROMOGENIC METHOD 0.32 IU/mLNormal0.3-0.7UnSumma HealthComment on above: Result Comment: Rivaroxaban and Apixaban will interfere with the anti Xa assay used to monitor UFH and LMWH.Performed By: #### [id number] #### [facility] ([facility]) [address] [place], [place] [address]MMRDQLW UNFRACTIONATED (U/ML) IN PPP BY CHROMOGENIC METHOD0.42 IU/mLNormal0.3-0.7UnSumma HealthComment on above:Result Comment: Rivaroxaban and Apixaban will interfere with the anti Xa assay used to monitor UFH and LMWH.Performed By: #### [id number] ####[facility] ([facility])[address] [place], [place] [address]TBEYY METABOLIC PANELon 05-12-2025 Anion gap [Moles/Vol]14 mmol/LNormal7-20UnSumma Health Comment on above:Performed By: #### [id number] ####[facility] ([facility])[address] [place], [place] [address]Lvqvooe [Mass/Vol]8.5 mg/dLLow8.6-10.3UnSumma HealthComment on above:Performed By: #### [id number] ####[facility] ([facility])[address] [place], [place] [address]Sezgirmt [Moles/Vol]99 mmol/ADreiyx42-142WnbwxyhaotSumma HealthComment on above:Performed By: #### [id number] ####[facility] ([facility])[address] [place] [address] CO2 [Moles/Vol]29 mmol/ALubtaw58-59WtksamtfgmSumma HealthComment on above:Performed By: #### [id number] ####[facility] ([facility])[address] [place] [address]Fjynphlvxe [Mass/Vol]1.63 mg/dLHigh0.70-1.30UnSumma HealthComment on above:Performed By: #### [id number] ####[facility] ([facility])[address] [place] [address]AOHUELEWVN FILTRATION RATE ML/MIN/1.73 SQ M.JXFBTMMSS47.8 mL/min/1.73m*2Low>60.0UnSumma HealthComment on above:Result Comment: [facility]???s estimated glomerular filtration rate (eGFR) will [...] potential consequences that do not disproportionately affect anyone group of individuals.Performed By: #### [id number] ####[facility] ([facility])[address] [place] [address]Pvfxplw [Mass/Vol]191 mg/gPMsex58-555ZeypvdhpbaSumma HealthComment on above:Performed By: #### [id number] ####[facility] ([facility])[address] [place] [address]Bhggqgxpe [Moles/Vol]3.5 mmol/LNormal3.5-5.1UnSumma HealthComment on above:Performed By: #### [id number] ####[facility] ([facility])[address] [place], [place] [address]Kkchac [Moles/Vol]138 mmol/L Bvtlnj160-200CslhjmjhsxSumma HealthComment on above:Performed By: #### [id number] ####[facility] ([facility])[address] [place] [place] [address]Wlmz nitrogen [Mass/Vol]36 mg/dLHigh7-25UnSumma HealthComment on above:Performed By: #### [id number] ####[facility] ([facility])[address] [place] [place] [address]TYAT NITROGEN/CREATININE (MASS RATIO) IN SER/PLAS22.1Normal [facility] HospitalComment on above:Performed By: #### [id number] ####[facility] ([facility])[address] [place] [address]FCOO GLUCOSE METER UNSOLICITED RESULTSon 85-17-9386Lwwnmwf [Mass/Vol]275 mg/kRMavw19-657 [facility] HospitalComment on above:Order Comment: Waived Testing in the ED is performed under the ED CLIA certificate #[id number].Result Comment: easjyky86Znbrcapse By: #### [id number] ####[facility] [facility] ([facility])[address] [address]Jpsukkw [Mass/Vol]285 mg/jWTntf02-554KbnfeasjgkSumma HealthComment on above:Order Comment: Waived Testing in the ED is performed under the ED CLIA certificate #[id number].Result Comment: [email or web address] Performed By: #### [id number] #### [facility] ([facility]) [address] [place] [address]Tauiela [Mass/Vol]332 mg/fFAgqh53-563YyqudmiclhSumma HealthComment on above:Order Comment: Waived Testing in the ED is performed under the ED CLIA certificate #[id number].Result Comment: [email or web address] Performed By: #### [id number] #### [facility] ([facility]) [address], [place] [address]Deongdj [Mass/Vol]214 mg/aGDhku50-238JvcyjoyfdlSumma HealthComment on above:Order Comment: Waived Testing in the ED is performed under the ED CLIA certificate #[id number].Result Comment: [email or web address] Performed By: #### [id number] #### [facility] ([facility]) [address] [place] [address]bu [id number] patient is Moderately Stable - Low risk of patient condition declining or worsening The patient's goals for the shift include comfort rest The clinical goals for the shift include VSS Over the shift, the patient did not make progress toward the following goals. Barriers to progression include. Recommendations to address these barriers include.NormalUnSumma HealthANTI-XA (HEPARIN LEVEL)on 51-08-6985XEDMVNO UNFRACTIONATED (U/ML) IN PPP BY CHROMOGENIC METHOD0.27 IU/mL Low0.3-0.7UnSumma HealthComment on above:Result Comment: Rivaroxaban and Apixaban will interfere with the anti Xa assay used to monitor UFH and LMWH.Performed By: #### [id number] #### [facility] ([facility]) [address] [place], [place] [address]GKMIPGP UNFRACTIONATED (U/ML) IN PPP BY CHROMOGENIC METHOD0.38 IU/mLNormal0.3-0.7UnSumma HealthComment on above:Result Comment: Rivaroxaban and Apixaban will interfere with the anti Xa assay used to monitor UFH and LMWH.Performed By: #### [id number] ####[facility] ([facility])[address] [place], [place] [address]CVIJMGF UNFRACTIONATED (U/ML) IN PPP BY CHROMOGENIC METHOD0.28 IU/mLLow0.3-0.7UnSumma Health Comment on above:Result Comment: Rivaroxaban and Apixaban will interfere with the anti Xa assay used to monitor UFH and LMWH.Performed By: #### [id number] ####[facility] ([facility])[address] [place], [place] [address]ODCMM METABOLIC PANELon 96-66-0943Nxgus gap [Moles/Vol]15 mmol/LNormal7-20[facility] Medical CenterComment on above:Performed By: #### [id number] #### [facility] ([facility]) [address] [place] [address]Ghxvwfi [Mass/Vol]8.4 mg/dLLow8.6-10.3UnSumma HealthComment on above:Performed By: #### [id number] #### [facility] ([facility]) [address] [place] [address]Ucauvpti [Moles/Vol]101 mmol/QSgrywa86-122CmpckvmfndSumma HealthComment on above:Performed By: #### [id number] #### [facility] ([facility]) [address] [place] [address]QW7 [Moles/Vol]28 mmol/PDaakdw80-75PwlsddowibSumma HealthComment on above:Performed By: #### [id number] #### [facility] ([facility]) [address] [place] [address]Dgafjhfevj [Mass/Vol]1.56 mg/dLHigh0.70-1.30UnSumma HealthComment on above:Performed By: #### [id number] #### [facility] ([facility]) [address] [place] [address]ZUBGVRIIJV FILTRATION RATE ML/MIN/1.73 SQ M.FAYSPAGNO58.0 mL/min/1.73m*2Low>60.0UnSumma HealthComment on above:Result Comment: The [facility]???s estimated glomerular filtration rate (eGFR) will [...] potential consequences that do not disproportionately affect anyone group of individuals.Performed By: #### [id number] #### [facility] ([facility]) [address] [place], [place] [address]Bhxlvnl [Mass/Vol]237 mg/yZDhla23-480BgprskqkdvSumma HealthComment on above:Performed By: #### [id number] #### [facility] ([facility]) [address], [place] [address]Dvbddpwfs [Moles/Vol]4.2 mmol/LNormal3.5-5.1UnSumma HealthComment on above:Performed By: #### [id number] #### [facility] ([facility]) [address] [place], [place] [address]Kwpuyn [Moles/Vol]140 mmol/WMyczqa314-206ClcceqfagtSumma HealthComment on above:Performed By: #### [id number] #### [facility] ([facility]) [address] [place], [place] [address]Lwxr nitrogen [Mass/Vol]31 mg/dLHigh7-25UnSumma HealthComment on above:Performed By: #### [id number] #### [facility] ([facility]) [address] [place], [place] [address]PSQM NITROGEN/CREATININE (MASS RATIO) IN SER/PLAS19.9Normal [facility] HospitalComment on above:Performed By: #### [id number] #### [facility] ([facility]) [address] [place], [place] [address]JXNpx 58-27-4196Cqbohuajjwd distribution width (RBC) [Ratio]19.0 %High11.5-15.0UnSumma HealthComment on above:Performed By: #### [id number] #### [facility] ([facility]) [address] [place], [place] [address]EFWPUUDXBOO MEAN CORPUSCULAR HEMOGLOBIN CONCENTRATION (G/DL) BY WEENGYVTF20.1 g/dLLow32.0-35.0UnSumma HealthComment on above:Performed By: #### [id number] #### [facility] ([facility]) [address] [place], [place] [address]Prxhxyygcs (Bld) [Volume fraction]31.8 %Low39.0-50.0UnSumma HealthComment on above:Performed By: #### [id number] #### [facility] ([facility]) [address] [place] [address]Ryjvrxpzrq (Bld) [Mass/Vol]9.9 g/dLLow13.0-17.0UnSumma HealthComment on above:Performed By: #### [id number] #### [facility] ([facility]) [address] [place] [place] [address]BOG (RBC) [Entitic mass]25.8 pgLow27.0-33.0UnSumma HealthComment on above:Performed By: #### [id number] #### [facility] ([facility]) [address] [place] [address]SMO (RBC) [Entitic vol]82.8 fBNazlkl72.0-98.0UnSumma HealthComment on above:Performed By: #### [id number] #### [facility] ([facility]) [address] [place] [address]IXTMGYLMS (10*3/UL) IN BLOOD AUTOMATED [id number] 10*3/uLNormal 150-400UnSumma HealthComment on above:Performed By: #### [id number] #### [facility] ([facility]) [address] [place] [address]MVO (Bld) [#/Vol]3.84 10*6/uLLow4.20-5.70UnSumma HealthComment on above:Performed By: #### [id number] #### [facility] ([facility]) [address] [place] [place] [address]RZC (Bld) [#/Vol]11.58 10*3/uLHigh4.00-10.60UnSumma HealthComment on above:Performed By: #### [id number] #### [facility] ([facility]) [address] [place], [place] [address]NGGEMYIep 58-42-9061LRVQLJMXpvajc For Consult aortic stenosis Referring Provider: Mesha Hughes MD History Of Present Illness Nadir Beth is a 85 y.o. male presenting with acute on chronic heart failure. He was found to have a BMP greater than [address] Youssef's office in [place] yesterday. He also had signs of congestive [...] leg paresis. 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 Electronically signed: Yenni Stafford MD.NormalUnSumma HealthComment on above:Order Comment: Low dose (half) contrastHEMOGLOBIN A1Con 20-77-8366Egsglqh [Mass/Vol]220 mg/dLNormalUniversKettering Memorial Hospital Comment on above:Performed By: #### [id number] #### [facility] ([facility]) [address] [place], [place] [address]BgI5g (Bld) [Mass fraction]9.3 %High4.0-6.0UnSumma HealthComment on above:Performed By: #### [id number] #### [facility] ([facility]) [address] [place], [place] [address]OLys 45-95-7237YAUqxyif For Consult aortic stenosis Referring Provider: Mesha Hughes MD History Of Present Illness Nadir Beth is a 85 y.o. male presenting with acute on chronic heart failure. He was found to have a BMP greater than [address] Youssef's office in [place] yesterday. He also had signs of congestive [...] leg paresis. He saw Dr. Garcia at [facility] and was told that it was embolic [...] % -- 05/10/25 164 (more content not included)...NormalUnSumma HealthHPH&P reviewed. The patient was examined and there are no changes to the H&P. Will proceed with RHC and coronary angiogram for acute on chronic HFpEF and aortic stenosis work up.NormalUnSumma HealthLIPID PANELon 01-42-8235NRWX/HDL2.7 mg/dLNormalUniversKettering Memorial HospitalComment on above:Performed By: #### [id number] ####[facility] ([facility])[address] [place], [place] [address]Zkmadlpcgzt [Mass/Vol]187 mg/pLEewzok065-547ZiarmuylurSumma HealthComment on above:Performed By: #### [id number] ####[facility] ([facility])[address] [place], [place] [address]Ltlkrkpol [Mass/Vol]93 mg/dL Normal<150UnSumma HealthComment on above:Result Comment: TRIGLYCERIDE REFERENCE RANGE: 20 YEARS AND OLDER CARDIOVASCULAR RISK LESS THAN 150 mg/dL LOW RISK 150 TO 199 mg/dL BORDERLINE RISK 200 mg/dL AND GREATER HIGH RISKPerformed By: #### [id number] ####[facility] ([facility])[address] [place], [place] [address]Kpyaqshie [Mass/Vol]99 mg/dLNormal 0-160UnSumma HealthComment on above:Performed By: #### [id number] ####[facility] ([facility])[address] [place], [place] [address]Eagvdguki [Mass/Vol]69 mg/dUSwfcrk81-92CtrjwxcdqiSumma HealthComment on above:Performed By: #### [id number] ####[facility] ([facility])[address] [place], [place] [address]MGR HDL CHOL. (LDL+VLDL)118NormalUniversKettering Memorial HospitalComment on above:Performed By: #### [id number] ####[facility] ([facility])[address] [place], [place] [address]OEZLA VLDL-C19 mg/dLNormal0-40 [facility] HospitalComment on above:Performed By: #### [id number] ####[facility] ([facility])[address] [place], [place] [address]CCON GLUCOSE METER UNSOLICITED RESULTSon 49-78-9413Zkopikv [Mass/Vol]306 mg/oOAjjv87-866 [facility] HospitalComment on above:Order Comment: Waived Testing in the ED is performed under the ED CLIA certificate #[id number].Result Comment: [email or web address] By: #### [id number] ####[facility] ([facility])[address] [place], [place] [address]Tkwxqft [Mass/Vol]348 mg/tDTuhe01-569BiqudkwlamSumma HealthComment on above:Order Comment: Waived Testing in the ED is performed under the ED CLIA certificate #[id number].Result Comment: clarcom Performed By: #### [id number] #### [facility] ([facility]) [address] [place] [address]Pjqlczj [Mass/Vol]201 mg/mXEmwx36-988CfpfjwiviqParkview Health Montpelier HospitalComment on above:Order Comment: Waived Testing in the ED is performed under the ED CLIA certificate #[id number].Result Comment: clarcom Performed By: #### [id number] #### [facility] ([facility]) [address] [place] [address]Hvouujm [Mass/Vol]224 mg/eMQmth07-107GoyzhcxyevSumma HealthComment on above:Order Comment: Patient had pre procedure medications already for cathResult Comment: clarcomPerformed By: #### [id number] ####[facility] ([facility])[address] [place] [address] 05-10-2025 30The patient is Moderately Stable - Low risk [...] swelling over the next 3 months Outcome: ProgressingNormalUniverscleveland clinic of [facility]30The patient is Moderately Stable - Low risk of patient condition declining or worsening The patient's goals for the shift include comfort The clinical goals for the shift include VSSNormalUniversKettering Memorial HospitalANTI-XA (HEPARIN LEVEL)on 51-14-4862OMQDVNX UNFRACTIONATED (U/ML) IN PPP BY CHROMOGENIC METHOD0.25 IU/mLLow0.3-0.7UnSumma Health Comment on above:Result Comment: Rivaroxaban and Apixaban will interfere with the anti Xa assay used to monitor UFH and LMWH.Performed By: #### [id number] #### [facility] ([facility]) [address] [place], [place] [address]HXOYXCU UNFRACTIONATED (U/ML) IN PPP BY CHROMOGENIC METHOD0.21 IU/mLLow0.3-0.7UnSumma HealthComment on above:Order Comment: Check anti-Xa level every 6 hours while on heparin infusion, or per protocol.Result Comment: Rivaroxaban and Apixaban will interfere with the anti Xa assay used to monitor UFH and LMWH.Performed By: #### [id number] ####[facility] ([facility])[address] [place], [place] [address]WZBKns 05-10-2025 ACTIVATED PARTIAL THROMBOPLASTIN TIME IN PPP BY COAGULATION ASSAY34.1 Seconds Vrbrgy77.0-35.0UnSumma HealthComment on above:Order Comment: Baseline aPTT before initiating heparin infusion.Result Comment: Clinical significance of the APTT is questionable in the presence of heparin. Performed By: #### [id number] #### [facility] [address] [place], [place] [address]K-JUBR NATRIURETIC PEPTIDEon 24-65-0862Bfzeodjkuon peptide B (Bld) [Mass/Vol]736 pg/mLHigh0-100UnSumma HealthComment on above:Performed By: #### [id number] #### [facility] ([facility]) [address] [place], [place] [address]QIC WITH AUTO DIFFERENTIALon 65-77-8357Nrqtnswgj (Bld) [#/Vol] 0.04 10*3/uLNormal0.00-0.20UnSumma HealthComment on above: Performed By: #### [id number] #### [facility] ([facility]) [address] [place] [address]Rfitogjbz/100 WBC (Bld)0.4 %Normal0.0-1.0UnSumma HealthComment on above:Performed By: #### [id number] #### [facility] ([facility]) [address], [place] [address]Kgpquzhslxe (Bld) [#/Vol]0.15 10*3/uLNormal0.00-0.50UnSumma HealthComment on above:Performed By: #### [id number] #### [facility] ([facility]) [address] [place] [address]Vlskkcbstas/100 WBC (Bld)1.4 %Normal0.0-6.0UnSumma HealthComment on above:Performed By: #### [id number] #### [facility] ([facility]) [address] [place], [place] [address]Jnzykepszzp distribution width (RBC) [Ratio]19.2 %High11.5-15.0 [facility] HospitalComment on above:Performed By: #### [id number] #### [facility] ([facility]) [address], [place] [address]ZTGGERSKCVJ MEAN CORPUSCULAR HEMOGLOBIN CONCENTRATION (G/DL) BY LAQNITSFV79.2 g/dLLow32.0-35.0UnSumma HealthComment on above:Performed By: #### [id number] #### [facility] ([facility]) [address] [place], [place] [address]Hbrfwjbryj (Bld) [Volume fraction]33.3 %Low39.0-50.0UnSumma HealthComment on above:Performed By: #### [id number] #### [facility] ([facility]) [address] [place], [place] [address]Ochghioyyg (Bld) [Mass/Vol]10.4 g/dLLow13.0-17.0UnSumma HealthComment on above:Performed By: #### [id number] #### [facility] ([facility]) [address] [place], [place] [address]Avkkfyja granulocytes (Bld) [#/Vol]0.06 10*3/uLNormal0.00-0.20 [facility] HospitalComment on above:Performed By: #### [id number] #### [facility] ([facility]) [address] [place], [place] [address]Alemoggk granulocytes/100 WBC (Bld)0.6 %Normal0.0-1.0UnSumma HealthComment on above:Performed By: #### [id number] #### [facility] ([facility]) [address] [place], [place] [address]Eujndqpiczr (Bld) [#/Vol]0.86 10*3/uLLow1.20-4.00UnSumma HealthComment on above:Performed By: #### [id number] #### [facility] ([facility]) [address] [place], [place] [address]Seoyjbiztuq/100 WBC (Bld)8.2 %Low20.0-45.0UnSumma HealthComment on above:Performed By: #### [id number] #### [facility] ([facility]) [address] [place], [place] [address]FUU (RBC) [Entitic mass]25.7 pgLow27.0-33.0UnSumma HealthComment on above:Performed By: #### [id number] #### [facility] ([facility]) [address] [facility] [place], [place] [address]ZAA (RBC) [Entitic vol]82.2 xBDqvliz81.0-98.0UnSumma HealthComment on above:Performed By: #### [id number] #### [facility] ([facility]) [address] [facility] [address] [place], [place] [address]Cigccmoqo (Bld) [#/Vol]1.08 10*3/uLHigh0.10-1.00UnSumma HealthComment on above:Performed By: #### [id number] #### [facility] ([facility]) [address] [place] [address]Hkpiaistw/100 WBC (Bld)10.3 %Normal5.0-12.0UnSumma HealthComment on above:Performed By: #### [id number] #### [facility] ([facility]) [address] [place], [place] [address]Iqaikmhmocb (Bld) [#/Vol]8.31 10*3/uLHigh1.60-7.60UnSumma HealthComment on above:Performed By: #### [id number] #### [facility] ([facility]) [address] [place], [place] [address]Kzhbhfbmlpx/100 WBC (Bld)79.1 %High40.0-72.0UnSumma HealthComment on above:Performed By: #### [id number] #### [facility] ([facility]) [address] [address] [place], [place] [address]DJOT (PER 100 WBCS) BY AUTOMATED COUNT0.0 %Smdqya2JayplhpvdcSumma HealthComment on above:Performed By: #### [id number] #### [facility] ([facility]) [address] [place], [place] [address]DOCMZGEOB (10*3/UL) IN BLOOD AUTOMATED [id number] 10*3/uLNormal 150-400UnSumma HealthComment on above:Performed By: #### [id number] #### [facility] ([facility]) [address] [place], [place] [address]LRB (Bld) [#/Vol]4.05 10*6/uLLow4.20-5.70UnSumma HealthComment on above:Performed By: #### [id number] #### [facility] ([facility]) [address] [place], [place] [address]XVJ (Bld) [#/Vol]10.50 10*3/uLNormal4.00-10.60UnSumma HealthComment on above:Performed By: #### [id number] #### [facility] ([facility]) [address] [address]GMAQEGDKSIFVN METABOLIC PANELon 82-64-3662Umcdhgj [Mass/Vol]3.5 g/dLNormal3.5-5.7UnSumma HealthComment on above:Performed By: #### [id number] ####[facility] ([facility])[address] [place] [address] ALP [Catalytic activity/Vol]72 U/FBghjxg38-345AepwnnwqotSumma HealthComment on above:Performed By: #### [id number] ####[facility] ([facility])[address] [place] [address]GUQ [Catalytic activity/Vol]7 U/L Normal7-52UnSumma HealthComment on above:Performed By: #### [id number] ####[facility] ([facility])[address] [place] [address]Vlcvu gap [Moles/Vol]16 mmol/LNormal7-20UnSumma HealthComment on above:Performed By: #### [id number] ####[facility] ([facility])[address] [place] [address]NOC [Catalytic activity/Vol]14 U/CSlkuvo38-41EedlawofuySumma HealthComment on above:Performed By: #### [id number] ####[facility] ([facility])[address] [place] [address]Mckcddphc [Mass/Vol]0.4 mg/dL Normal0.3-1.0UnSumma HealthComment on above:Performed By: #### [id number] ####[facility] ([facility])[address] [place] [address] Calcium [Mass/Vol]8.5 mg/dLLow8.6-10.3UnSumma HealthComment on above:Performed By: #### [id number] ####[facility] ([facility])[address] [place] [address]Frmbtpuh [Moles/Vol]101 mmol/ALgpcfr20-325KpluayzpgeSumma HealthComment on above:Performed By: #### [id number] ####[facility] ([facility])[address] [place] [address]SZ[address] [Moles/Vol]26 mmol/LNormal 21-31UnSumma HealthComment on above:Performed By: #### [id number] ####[facility] ([facility])[address] [place], [place] [address]Mlzwdegmxk [Mass/Vol]1.45 mg/dLHigh0.70-1.30UnSumma HealthComment on above:Performed By: #### [id number] ####[facility] ([facility])[address] [place], [place] [address]YVDGHJDPAS FILTRATION RATE ML/MIN/1.73 SQ M.YBJFJPXOR19.9 mL/min/1.73m*2Low>60.0UnSumma HealthComment on above:Result Comment: [facility]???s estimated glomerular filtration rate (eGFR) will [...] potential consequences that do not disproportionately affect anyone group of individuals.Performed By: #### [id number] ####[facility] ([facility])[address] [place] [address]Lylswbu [Mass/Vol]156 mg/gJDddr45-078RjlhjxqcosSumma HealthComment on above:Performed By: #### [id number] ####[facility] ([facility])[address], [place] [address]Rnxusilml [Moles/Vol]3.6 mmol/L Normal3.5-5.1UnSumma HealthComment on above:Performed By: #### [id number] ####[facility] ([facility])[address] [place] [address] Protein [Mass/Vol]6.2 g/dLNormal6.0-8.3UnSumma Health Comment on above:Performed By: #### [id number] ####[facility] ([facility])[address] [place], [place] [address]Wtgini [Moles/Vol]139 mmol/NIthsqm618-766TaqwoxkdliSumma HealthComment on above:Performed By: #### [id number] ####[facility] ([facility])[address] [place], [place] [address]Ihpj nitrogen [Mass/Vol] 28 mg/dLHigh7-25UnSumma HealthComment on above:Performed By: #### [id number] ####[facility] ([facility])[address] [place] [address] UREA NITROGEN/CREATININE (MASS RATIO) IN SER/PLAS19.3NormalUniversKettering Memorial HospitalComment on above:Performed By: #### [id number] ####[facility] ([facility])[address] [place], [place] [address]YMUXLPKxi 47-61-2363GVIMXQYxlmrpbwod planning: to return to [facility] Patient came to this admission from [facility]. - Occupational Therapy Eval noting Patient is able to return to prior living environment - Physical Therapy Eval noting Patient is able to return to prior living environment - LDAs tab not listing any open wounds or closed skin issues - I/O wVital flowsheet noting Patient on Room Air at this [facility] - to [facility]; Erin confirmed Patient is from their facility, specifically their [facility] unit (not ECF or [facility]) discharge barriers: [] no insurance precert needed for any placement from this admission [] NormalUnSumma HealthCONSULT Attestation signed by Azeem Green MD at 05/10/2025 7:15 PM I personally saw and evaluated the patient on rounds with the durable medical equipment technician and agree with his assessment and plan as documented in the progress note from today Cardiology Consult Note Reason for Consult: Acute on chronic HFpEF, hypertensive urgency HPI: Nadir Beth is a 85 y.o. male with past medical history of A-fib on Xarelto, hypertension, HFpEF, CKD, recent history of CVA 4 months back, renal artery stenosis transferred from [facility] for acute on chronic heart failure. Patient had history of stroke 4 months back and was in rehab patient has been having progressive lower extremity edema for few days. Patient was advised to increase his Lasix from 20 to 40 mg and blood work was done which showed BNP 6214 and was advised to go to the ED. In [facility] chest x-ray showed pulmonary vascular congestion [...] Abdomen is flat. Palp (more content not included)...[facility] CONSULTAdult Nutrition Assessment: Name: Nadir Beth Date: 1940 [...] of Nutrition and Dietetics (AND) and the [employer] Parenteral [employer] (ASPEN). [...] To reach the Clinical Dietitian, please utilize cinvolve chat Wednesday-Wednesday from 8AM-4PM or call extension [phone]. For weekends (Wednesday-Wednesday) and hols, the Clinical Dietitian can be reached via pager ([phone]) from 9AM-3PM. The Clinical Nutrition Department is unable to respond to cinvolve chat messages on Sundays and . [1] History reviewed. No pertinent past medical history. [2] Allergies Allergen Reactions Aminolevulinic Acid Hcl Unknown Iodinated Contrast Media Unknown Nitroglycerin Other hypotension Simvastatin UnknownNormalUniversity Kettering Health PrebleDocumentationon [id number] Nadir Beth 1940 M Date Provider Department Center 05/10/202563067-YKCTWASUSANA [facility]MAN [facility] Comprehensiv Family History Problem Relation Age of Onset Coronary artery disease Father Family Status - Relation Status Age at Mother Father DeceasedNormalUniversity Kettering Health PrebleHIGH SENSITIVITY TROPONIN Ion 69-13-4609LQ TROPONIN I (NG/L)26 ng/LHigh<20[facility] HospitalComment on above:Performed By: #### [id number] ####[facility] (BEAKER)[address] [place], [place] [address]BC TROPONIN I (NG/L)21 ng/LHigh<20 [facility] HospitalComment on above:Performed By: #### [id number] ####[facility] ([facility]AKER)[address] [place], [place] [address]EZ TROPONIN I (NG/L)21 ng/LHigh<20UnSumma HealthComment on above: Performed By: #### [id number] ####[facility] (BEAKER)[address] [place], [place] [address]MCvg [id number] Attestation signed by Azeem Green MD at 05/10/2025 7:15 PM I personally saw and evaluated the patient on rounds with the durable medical equipment technician and agree with his assessment and plan as documented in the progress note from today Cardiology Consult Note Reason for Consult: Acute on chronic HFpEF, hypertensive urgency HPI: Nadir Beth is a 85 y.o. male with past medical history of A-fib on Xarelto, hypertension, HFpEF, CKD, recent history of CVA 4 months back, renal artery stenosis transferred from [facility] for acute on chronic heart failure. Patient had history of stroke 4 months back and was in rehab patient has been having progressive lower extremity edema for few days. Patient was advised to increase his Lasix from 20 to 40 mg and blood work was done which showed BNP 6214 and was advised to go to the ED. In [place] ED chest x-ray showed pulmonary vascular congestion [...] Abdomen is flat. Palp (more content not included)...NormalUnSumma Health MAGNESIUMon 27-44-0769Oifkcjofe [Mass/Vol]2.0 mg/dLNormal1.9-2.7UnSumma HealthComment on above:Performed By: #### [id number] ####[facility] (BEAKER)[address] [place], [place] [address]JBATLPAP COUNTon 31-11-4674ZRJKUYNBZ (10*3/UL) IN BLOOD AUTOMATED [id number] 10*3/dNXswolr362-261 [facility] HospitalComment on above:Performed By: #### [id number] #### [facility] (BEAKER) [address] [place], [place] [address]EQFR GLUCOSE METER UNSOLICITED RESULTSon 70-48-1333Gdpccnu [Mass/Vol]237 mg/jLJfsi77-965ZqttzmfacuSumma HealthComment on above:Order Comment: Waived Testing in the ED is performed under the ED CLIA certificate #[id number].Result Comment: [id number] By: #### [id number] #### [facility] ([facility]) [address] [place] [place] [address]Xoysgwr [Mass/Vol]159 mg/xFYzbw29-710DelwqsrgizSumma HealthComment on above:Order Comment: Waived Testing in the ED is performed under the ED CLIA certificate #[id number].Result Comment: isegura2 Performed By: #### [id number] #### [facility] ([facility]) [address] [place], [place] [address]Mglfxos [Mass/Vol]172 mg/yYUmxi54-576PmczoroxqzSumma HealthComment on above:Order Comment: Waived Testing in the ED is performed under the ED CLIA certificate #[id number].Result Comment: isegura2 Performed By: #### [id number] ####[facility] ([facility])[address] [facility] [place], [place] [address]Kujkrwx [Mass/Vol]186 mg/rJGumf03-164HwwjqexqhrSumma HealthComment on above:Order Comment: Waived Testing in the ED is performed under the ED CLIA certificate #[id number].Result Comment: isegura2 Performed By: #### [id number] #### [facility] ([facility]) [address] [place], [place] [address]USM4 REFLEX TO FT4on 68-81-2497BAJMCXVTYFY (MIU/L) IN SER/PLAS BY DETECTION LIMIT <= 0.05 MIU/L1.34 mIU/LNormal0.34-5.60UnSumma HealthComment on above:Performed By: #### [id number] #### [facility] ([facility]) [address] [place] [id number] 56-11-343400Pvufgde is rescheduled for 07/11.Normal [facility]36on 79-52-346073Fej to reschedule patients nephrology appointment. Advised at this time, the appointment will be cancelled and to call back to reschedule.NormalParkview Health Montpelier HospitalTelephoneon [id number] Nadir Beth 1940 M Date Provider Department Center 05/04/2025 [facility] Comprehensiv Family History Problem Relation Age of Onset Coronary artery disease Father Family Status - Relation Status Age at Mother Father DeceasedNormalUniversKettering Memorial HospitalCoding Queryon 46-29-2850Lruypk QueryCoding Query From: Lay Dominguez RN To: Anai URIARTE; Cc: Ginny Talamantes; Sent: 04/30/2025 07:31:14 EDT ! Subject: Coding Query Due Date/Time: 05/01/2025 07:30:00 EDT Caller Name: NADIR BETH; Caller Number: Sergio , Documentation in the medical record indicates this patient has been admitted with or diagnosed as having: Altered mental status The following is also documented in the medical record: dc gqrulec-43-rcvz-old male who was admitted to the hospital [...] NADIR BETH; Caller Number: H , M MRI of the brain which showed probable T2 shine through and minimal acute/subacute ischemic lacunarinfarcts. likely embolicNormalFisher R Adams Cowley Shock Trauma CenterCoding QueryCoding Query From: Lay Dominguez RN To: Anai [...] NADIR Hamilton; Caller Number: H , M CKD stage 3BNoCincinnati VA Medical CenterCoding QueryCoding Query From: Lay Dominguez RN To: Anai [...] left lower leg. 1.2cm long by 1.2cm wideby 0.1 depth. 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 Cisneros on 05/03/2025.[facility]36on [phone]'s daughter called to make you aware he had a stroke and was admitted to [facility]. He will be discharged today to SNF. He's scheduled for heart cath with you 05/10. Daughter wants to know if you still want him to have this or if he needs pushed out? Do you need to see him prior to this? Please advise. Thanks.[facility] Children's HospitalBMPon 10-55-8952Eqxiy gap [Moles/Vol]12 mmol/LNormal6-16[facility] HospitalComment on above: Performed By: #### [id number] #### [facility] [address], [place] [address]VTX/Creat Ratio22 No OzxuyTskx25-39FobtftCleveland Clinic Fairview Hospital Comment on above:Performed By: #### [id number] #### [facility] [address], [place] [address]Jxiqfvw [Mass/Vol]8.7 mg/dLLow8.9-11.1FOhioHealth Riverside Methodist HospitalComment on above:Performed By: #### [id number] #### [facility] [address], [place] [address]Tslstvpd [Moles/Vol]102 mmol/KKepivp078-207BehlnoCleveland Clinic Fairview HospitalComment on above:Performed By: #### [id number] #### [facility] [address], [place] [address]LY4 [Moles/Vol]27 mmol/RWqnebe48-58AqcngkCleveland Clinic Fairview Hospital Comment on above:Performed By: #### [id number] #### [facility] [address], [place] [address]Fnwezzgjpk [Mass/Vol]1.6 mg/dLHigh0.5-1.3FOhioHealth Riverside Methodist HospitalComment on above:Performed By: #### [id number] #### [facility] [address], [place] [address]Zwttduo [Mass/Vol]233 mg/wEDcdy53-874CwmxljCleveland Clinic Fairview HospitalComment on above:Performed By: #### [id number] #### [facility] [address], [place] [address]Fpwzaeqrz [Moles/Vol]4.3 mmol/LNormal3.5-5.3FOhioHealth Riverside Methodist HospitalComment on above:Performed By: #### [id number] #### [facility] [address] [place] [address]Ckxchm [Moles/Vol]137 mmol/KMorezf229-980CrmtosCleveland Clinic Fairview HospitalComment on above:Performed By: #### [id number] #### [facility] [address] [place] [address]Arsp nitrogen [Mass/Vol]35 mg/dLHigh5-21[facility] HospitalComment on above:Performed By: #### [id number] #### [facility] [address] [place] [address]APQ w/ Auto Diffon 50-12-6995Wkxlswet Absolute0.0 E9/LNormal 0.0-0.2FOhioHealth Riverside Methodist HospitalComment on above:Performed By: #### [id number] #### [facility] [address] [place] [address]Golzkoyox/100 WBC (Bld)0.4 %Normal0.0-2.0[facility] HospitalComment on above:Performed By: #### [id number] #### [facility] [address] [place] [address]Ugl Absolute0.2 E9/LNormal0.0-0.5FOhioHealth Riverside Methodist Hospital Comment on above:Performed By: #### [id number] #### [facility] [address] [place] [address]Qfyfmihamuf/100 WBC (Bld)2.3 %Normal0.0-8.0[facility] HospitalComment on above:Performed By: #### [id number] #### [facility] [address] [place] [address]Qodbjgqkfpf distribution width (RBC) [Ratio]20.0 %High10.9-14.2 [facility] HospitalComment on above:Performed By: #### [id number] #### [facility] [address] [place] [address] [place] [address]Kfdslohbrd (Bld) [Volume fraction]33.0 %Low37.7-49.0[facility] HospitalComment on above:Performed By: #### [id number] #### [facility] [address], [place] [address]Gtcmlaonov (Bld) [Mass/Vol]10.6 g/dLLow13.5-17.5FOhioHealth Riverside Methodist HospitalComment on above:Performed By: #### [id number] #### [facility] [address], [place] [address]Yhrgx Absolute0.7 E9/LLow1.0-4.0[facility] Comment on above:Performed By: #### [id number] #### [facility] [address] [place] [address]Znfhflfspjk/100 WBC (Bld)9.6 %Low14.0-50.0[facility] HospitalComment on above:Performed By: #### [id number] #### [facility] [address] [place] [address]MEO (RBC) [Entitic mass]27.3 aeTkjhau58.0-34.0[facility] HospitalComment on above:Performed By: #### [id number] #### [facility] [address] [place] [address]TTYG (RBC) [Mass/Vol]32.2 g/yHIylore62.4-36.0[facility] HospitalComment on above:Performed By: #### [id number] #### [facility] [address], [place] [address]AYV (RBC) [Entitic vol]84.6 cTKkupvo60.0-100.0[facility] HospitalComment on above:Performed By: #### [id number] #### [facility] [address] [place] [address]Rabs Absolute0.9 E9/LNormal0.2-1.0[facility] Comment on above:Performed By: #### [id number] #### [facility] [address], [place] [address]Wdjkmnoab/100 WBC (Bld)11.6 %Normal4.0-14.0[facility] HospitalComment on above:Performed By: #### [id number] #### [facility] [address], [place] [address]Wbbsgk Absolute5.7 E9/LNormal2.0-7.5FOhioHealth Riverside Methodist Hospital Comment on above:Performed By: #### [id number] #### [facility] [address], [place] [address]Aigkme Auto76.1 %High36.0-75.0[facility] Comment on above:Performed By: #### [id number] #### [facility] [address], [place] [address]Wcxrnvel952.0 E9/MJmtuel532.0-500.0[facility] Comment on above:Performed By: #### [id number] #### [facility] [address], [place] [address]Ylctnouw mean volume (Bld) [Entitic vol]9.0 fLNormal6.4-10.8 [facility] HospitalComment on above:Performed By: #### [id number] #### [facility] [address], [place] [address]BYE1.9 E12/LLow4.3-5.9[facility] HospitalComment on above:Performed By: #### [id number] #### [facility] [address], [place] [address]BBE9.5 E9/LNormal4.0-11.0[facility] HospitalComment on above:Performed By: #### [id number] #### [facility] [address], [place] [address]WUUNEGFPXXmhcluc By: Herlinda Beckwith on 64-41-4333Lkqtqbh [Mass/Vol]204 mg/vWPzse52 - 99 mg/dLFT POC SubsectionComment on above:Result Comment: Notified RN/MDPOC Device [id number] 1Invalid Interpretation Code [facility] POC SubsectionPOC UsernameVOLLMAR, HANNAHInvalid Interpretation CodeFT POC SubsectionSodium [Moles/Vol]558321898 mmol/LInvalid Interpretation CodeFTMC POC SubsectionGlucose [Mass/Vol]212 mg/uGGdzd12 - 99 mg/dLFT POC Subsection Comment on above:Result Comment: Notified RN/MDPOC Device [id number] 1 Invalid Interpretation CodeFTMC POC SubsectionPOC UsernameVOLLMAR, HANNAHInvalid Interpretation CodeFTMC POC SubsectionSodium [Moles/Vol]624120152 mmol/LInvalid Interpretation CodeFT POC SubsectionCHEMISTRYOrdered By: SYSTEM SYSTEM on 07-57-8051Tytqq gap [Moles/Vol]12 mmol/LNormal6 - 16 mEq/LRemisol ChemCalcium [Mass/Vol]8.7 mg/dLLow8.9 - 11.1 mg/dLRemisol ChemChloride [Moles/Vol]102 mmol/L Wrberg312 - 111 mmol/LRemisol ChemCO2 [Moles/Vol]27 mmol/YQqfsmt78 - 31 mmol/L Remisol ChemCreatinine [Mass/Vol]1.6 mg/dLHigh0.5 - 1.3 mg/dLRemisol Chem GFR/1.73 sq M.predicted MDRD (S/P/Bld) [Vol rate/Area]42 mL/min/1.73 m2Low >=59mL/min/1.73 u8Mcdzjbv ChemGlucose [Mass/Vol]233 mg/rWHclv34 - 199 mg/dL Remisol ChemPotassium [Moles/Vol]4.3 mmol/LNormal3.5 - 5.3 mmol/LRemisol Chem Sodium [Moles/Vol]137 mmol/IVgtzba101 - 145 mmol/LRemisol ChemUrea nitrogen [Mass/Vol]35 mg/dLHigh5 - 21 mg/dLRemisol ChemUrea nitrogen/Creatinine [Mass ratio]22 mg/jdVlsg75 - 20Remisol ChemCapillary Glucose POCon 51-81-9765Diemynn [Mass/Vol]204 mg/oFTtbm59-22SdrvyjCleveland Clinic Fairview HospitalComment on above:Result Comment: Notified RN/MDPerformed By: #### [id number] ####[facility] [address] [place], [place] [address]Taixrov [Mass/Vol]212 mg/dL Ngeo99-12EmxlfdCleveland Clinic Fairview HospitalComment on above:Result Comment: Notified RN/MDPerformed By: #### [id number] #### [facility] [address] [place], [place] [address]Abhwzxefq Note-Nursingon 85-50-3393Uiophalrc Note-Nursing Discharge Note-Nursing NADIR BETH :1940 Visit Date:04/14/2025 Inpatient Discharge Instructions Your Care Team Admitting Physician - Layne VERDUGO DO Consulting Physician - Clover Walker MD [facility] [place] Wound, XXXX Reason for Your Visit AMS [...] topical (bacitracin top 500 units/g Oint PACKET) betamethasone-clotrimazole topical (betamethasone-clotrimazole Top 0.05%-1% Crm 15 gram) budesonide-formoterol (Symbicort) [...] HENDERSON, LU Sweet Where: [facility] [address] [address]- New Follow Up Appointments after Discharge Follow Up with Neurology When: Within 2 to 4 weeks Comments: Call for followup appointment Where: [phone] Medications What How Much When Why Instructions Next Dose New bacitracin topical (bacitracin top 500 units/ g Oint PACKET) Topical 2 times a day Tonight at 9:00 PM Changed alprazolam (Xanax 0.25 mg Tab) 1 Tablets By Mouth Every 8 hours as needed for as needed foranxiety Anxiety Printed Prescription As needed Changed furosemide (Lasix 20 mg Tab) 1 Tablets By Mouth Every day 04/19/2025 Unchanged aspirin 81 Milligram By Mouth Every day 04/19/2025 Unchanged betamethasone-clotrimazole topical (betamethasone-clotrimazole Top 0.05%-1% Crm 15 gram) Resume as [...] 3 times a day Resume tonight at 10:00PM Unchanged multivitamin (B Complex with Vitamin C Gummy oral tablet, chewable) 1 Tablets Chewed Every day 04/19/2025 Unchanged omeprazole 20 Milligram By Mouth Every day 04/19/2025 Unchanged pioglitazone (pioglitazone 30 mg Tab) 45 Milligram By Mouth Every day Resume 04/19/2025 Unchanged potassium chloride (Klor-Con) 20 Milliequivalent By Mouth Every day 04/19/2025 (more content not included)...NormalCleveland Clinic Fairview HospitalHEMATOLOGYOrdered By: SYSTEM SYSTEM on 25-17-0941Zamleclfw/100 WBC (Bld)0.4 %Normal0.0 - 2.0 % Remisol HemeBasophils/Leukocytes Auto (Bld) [Pure # fraction]0.0 E9/LNormal0.0 - 0.2 E9/LRemisol HemeEosinophils (Bld) [#/Vol]0.2 E9/LNormal0.0 - 0.5 E9/LRemisol HemeEosinophils/100 WBC (Bld)2.3 %Normal0.0 - 8.0 %Remisol HemeErythrocyte distribution width (RBC) [Ratio]20.0 %High10.9 - 14.2 %Remisol HemeHematocrit (Bld) [Volume fraction]33.0 %Low37.7 - 49.0 %Remisol HemeHemoglobin (Bld) [Mass/Vol]10.6 g/dLLow13.5 - 17.5 gm/dLRemisol HemeLymphocytes (Bld) [#/Vol]0.7 E9/LLow1.0 - 4.0 E9/LRemisol HemeLymphocytes/100 WBC (Bld)9.6 %Low14.0 - 50.0 % Remisol HemeMCH (RBC) [Entitic mass]27.3 kqOxtzse67.0 - 34.0 pgRemisol HemeMCHC (RBC) [Mass/Vol]32.2 g/zKYrvbyf32.4 - 36.0 gm/dLRemisol HemeMCV (RBC) [Entitic vol]84.6 kWUanvbo38.0 - 100.0 fLRemisol HemeMonocytes (Bld) [#/Vol]0.9 E9/L Normal0.2 - 1.0 E9/LRemisol HemeMonocytes/100 WBC (Bld)11.6 %Normal4.0 - 14.0 % Remisol HemeNeutrophils (Bld) [#/Vol]5.7 E9/LNormal2.0 - 7.5 E9/LRemisol Heme Neutrophils/100 WBC (Bld)76.1 %High36.0 - 75.0 %Remisol HemePlatelet mean volume (Bld) [Entitic vol]9.0 fLNormal6.4 - 10.8 fLRemisol HemePlatelets (Bld) [#/Vol] 234.0 E9/CHtfsao275.0 - 500.0 E9/LRemisol HemeRBC (Bld) [#/Vol]3.9 E12/LLow4.3 - 5.9 E12/LRemisol HemeWBC corrected for nucl RBC Auto (Bld) [#/Vol]7.5 E9/L Normal4.0 - 11.0 E9/LRemisol HemeInpatient Clinical Summaryon 04-18-2025 Inpatient Clinical SummaryInpatient Clinical Summary [address] [address] Clinical Summary Person Information: Name: NADIR BETH Age: 85 Years : 1940 Sex: Male PCP: Van Youssef MD Marital Status: Race: White Ethnicity: Non- or Language: Bruneian Visit Id: Visit Reason: Altered mental status; Headache; Potential stroke; stroke Speciality: Acuity: Enc Type: Inpatient Med Service: Medical Arrival: 04/14/2025 16:53:36 Discharge: Dispo Type: Admitted as IP to this Hosp Address: [address] [place] [id number] Provider Notes: Diagnosis: 1:CVA (cerebrovascular accident); 2:Atrial [...] Oint PACKET) Topical 2 times a day. betamethasone-clotrimazole topical (betamethasone-clotrimazole Top 0.05%-1% Crm 15 gram) budesonide-formoterol (Symbicort) [...] VERDUGO DO Consulting Physician: Clover Walker MD; [facility] – [place] Wound, XXXX Referring Physician: Follow up: With: Address: When: Neurology [phone] Within 2 to 4 weeks Comments: Call for followup appointment Type Location Start Finish State [facility] Office Visit [facility] [place] 06/11/2025 11:40 AM 06/11/2025 12:00 PM Confirmed Patient Education Information: Type 2 Diabetes Mellitus, Diagnosis, Adult; Atrial Fibrillation; Core Measures: Stroke (Cerebrovascular Accident) [facility] [place], (Custom)[facility] CenterInpatient Patient Summaryon 40-13-0249Qxlhzpgqc Patient SummaryInpatient Patient Summary [place] [address] Patient Discharge Instructions PERSON INFORMATION Name: NADIR BETH Date of : 1940 Current Date: 04/18/2025 12:27:53 PHYSICIANS Admitting Physician: Layne VERDUGO DO Primary Care Physician: Van Youssef MD PCP Comment: Discharge Diagnosis: 1:CVA (cerebrovascular accident); 2:Atrial fibrillation; 3:Hypertensive urgency; 4:Pericardial effusion; 5:Congestive heart failure; 6:Chronic kidney disease; 7:Essential tremor;8:DM2 (diabetes mellitus, type 2); 9:BPH with urinary obstruction; 10:On deep vein thrombosis (DVT)prophylaxis; 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 Type Location Start Finish [facility] Office Visit [facility] [place] 06/11/2025 11:40 AM 06/11/2025 12:00 PM Confirmed Comment: KIRIT Mixon RONALD L, have received the attached patient education materials/instructions and have verbalized understanding: Patient Signature Date Clinican/Nurse Signature Date HERE ARE THE MEDICATION CHANGES THAT OCCURRED DURING YOUR HOSPITAL STAY New Medications Other Medications bacitracin topical (bacitracin top 500 units/g Oint PACKET) Topical 2 times a day. Last Dose: Next Dose: Medications to Continue Taking That Have Changed Printed Prescriptions START: alprazolam (Xanax 0.25 mg Tab) 1 Tablets By Mouth every 8 hours as needed as needed for anxiety. Refills: 0. Last Dose: Next Dose: STOP: alprazolam (Xanax 0.25 mg Tab) 1 Tablets By Mouth every 8 hours as needed as needed for anxiety. Other Medications START: furosemide (Lasix 20 mg Tab) 1 Tablets By Mouth every day. Last Dose: Next Dose: STOP: furosemide (Lasix 80 mg Tab) By Mouth every day. STOP: furosemide (Lasix) 40 Milligram. Medications to Continue with No Changes Other Medications aspirin 81 Milligram By Mouth every day. Last Dose: Next Dose: betamethasone-clotrimazole topical (betamethasone-clotrimazole Top 0.05%-1% Crm 15 gram) Last Dose: Next Dose: budesonide-formoterol (Symbicort) 80-4.5 mcg/actuation Inhalation 2 times a day. Last Dose: Next Dose: cetirizine (cetirizine 10 mg Tab) 1 Tablets By Mouth every day. Last Dose: Next Dose: cholecalciferol (Vitamin D3 2000 intl units) 2,000 Units By Mouth every day. Last Dose: Next Dose: clonidine 0.2 Milligram By Mouth 2 times a day. Last Dose: Next Dose: dicyclomine 10 Milligram By Mouth 2 times a day. Last Dose: Next Dose: empagliflozin (Jardiance 10 mg oral tablet) 25 Milligram By Mouth once a day (in the morning). Last Dose: Next Dose: ezetimibe (Zetia) 10 Milligram By Mouth every day. Last Dose: Next Dose: glimepiride 8 Milligram By Mouth every day. Last Dose: Next Dose: labetalol 300 Milligram By Mouth 3 times a day., 150mg BID Last Dose: Next Dose: magnesium oxide 500 Milligram By Mouth 3 times a day. Last Dose: Next Dose: metformin (metformin 500 mg Tab) 1 Tablets By Mouth 3 times a day. Last Dose: Next Dose: multivitamin (B Complex with Vitamin C Gummy oral tablet, chewable) 1 Tablets Chewed every day. Last Dose: Next Dose: omepra (more content not included)...[facility] Interdisciplinary Note - Case Manageron 36-78-1277Tpkozndxyaacuscbo Note - Case ManagerInterdisciplinary Note - Surgery Nurse Patient awake and alert eating breakfast in bed. and dtr at bedside. [facility] and can dc when medically clear. and daughterwill transport at dc. Patient will dc today. Denies any further concerns.[facility] Medical CenterComment on above:Result Comment: Electronically Signed By: Jihan De Oliveira\.br\Date and Time Signed: 04/18/25 09:36 EDTeGFRon 45-00-3778sDOQ76 mL/min/1.73 m2Low>=59 [facility] HospitalComment on above:Performed By: #### [id number] #### [facility] [address], [place] [address]ZYKhw 68-71-4376Ibbgl gap [Moles/Vol]15 mmol/LNormal6-16[facility] HospitalComment on above:Performed By: #### [id number] #### [facility] [address], [place] [address]JKK/Creat Ratio21 No MqvxhNntg65-87PphqnhCleveland Clinic [facility]view Hospital Comment on above:Performed By: #### [id number] #### [facility] [address], [place] [address]Ghkkeyx [Mass/Vol]8.8 mg/dLLow8.9-11.1FOhioHealth Riverside Methodist HospitalComment on above:Performed By: #### [id number] #### [facility] [address], [place] [address]Lelpifhm [Moles/Vol]104 mmol/OPzlodl032-607RltunqCleveland Clinic Fairview HospitalComment on above:Performed By: #### [id number] #### [facility] [address], [place] [address]JO7 [Moles/Vol]26 mmol/KOilztb64-39CbvbwaCleveland Clinic Fairview Hospital Comment on above:Performed By: #### [id number] #### [facility] [address], [place] [address]Bzatcuwyjt [Mass/Vol]1.6 mg/dLHigh0.5-1.3FOhioHealth Riverside Methodist HospitalComment on above:Performed By: #### [id number] #### [facility] [address], [place] [address]Rmzjsyv [Mass/Vol]222 mg/cAUazt62-903GrjefdCleveland Clinic Fairview HospitalComment on above:Performed By: #### [id number] #### [facility] [address], [place] [address]Rofwhizuw [Moles/Vol]4.1 mmol/LNormal3.5-5.3FOhioHealth Riverside Methodist HospitalComment on above:Performed By: #### [id number] #### [facility] [address], [place] [address]Qrsdnw [Moles/Vol]141 mmol/FPzbfyb215-098HezefmCleveland Clinic Fairview HospitalComment on above:Performed By: #### [id number] #### [facility] [address], [place] [address]Mmgy nitrogen [Mass/Vol]34 mg/dLHigh5-21C[facility] HospitalComment on above:Performed By: #### [id number] #### [facility] [address], [place] [address]KGR w/ Auto Diffon 40-89-6369Mjnlyssk Absolute0.1 E9/LNormal 0.0-0.2FOhioHealth Riverside Methodist HospitalComment on above:Performed By: #### [id number] #### [facility] [address], [place] [address]Ccmxwxqxk/100 WBC (Bld)0.6 %Normal0.0-2.0[facility] HospitalComment on above:Performed By: #### [id number] #### [facility] [address], [place] [address]Mgc Absolute0.1 E9/LNormal0.0-0.5FOhioHealth Riverside Methodist Hospital Comment on above:Performed By: #### [id number] #### [facility] [address], [place] [address]Grzervlsrjf/100 WBC (Bld)0.6 %Normal0.0-8.0[facility] HospitalComment on above:Performed By: #### [id number] #### [facility] [address], [place] [address]Ldnatcjvmru distribution width (RBC) [Ratio]20.3 %High10.9-14.2 [facility] HospitalComment on above:Performed By: #### [id number] #### [facility] [address] [place] [address]Pqatzamhsm (Bld) [Volume fraction]34.9 %Low37.7-49.0[facility] HospitalComment on above:Performed By: #### [id number] #### [facility] [address] [place] [address]Lekcrzmerz (Bld) [Mass/Vol]11.2 g/dLLow13.5-17.5FOhioHealth Riverside Methodist HospitalComment on above:Performed By: #### [id number] #### [facility] [address] [place] [address]Pwzkx Absolute0.7 E9/LLow1.0-4.0[facility] Comment on above:Performed By: #### [id number] #### [facility] [address], [place] [address]Yrnwzpkseor/100 WBC (Bld)7.1 %Low14.0-50.0[facility] HospitalComment on above:Performed By: #### [id number] #### [facility] [address], [place] [address]UFS (RBC) [Entitic mass]27.5 wtNfccox92.0-34.0[facility] HospitalComment on above:Performed By: #### [id number] #### [facility] [address] [place] [address]SYMS (RBC) [Mass/Vol]32.2 g/dYUzrwre23.4-36.0[facility] HospitalComment on above:Performed By: #### [id number] #### [facility] [address] [place] [address]XET (RBC) [Entitic vol]85.4 zTLdxvhc38.0-100.0[facility] HospitalComment on above:Performed By: #### [id number] #### [facility] [address], [place] [address]Tilb Absolute1.4 E9/LHigh0.2-1.0[facility] Comment on above:Performed By: #### [id number] #### [facility] [address] [place] [address]Rkcnqmske/100 WBC (Bld)13.7 %Normal4.0-14.0[facility] HospitalComment on above:Performed By: #### [id number] #### [facility] [address], [place] [address]Okfwwv Absolute7.7 E9/LHigh2.0-7.5FOhioHealth Riverside Methodist Hospital Comment on above:Performed By: #### [id number] #### [facility] [address], [place] [address]Rxejpe Auto78.0 %High36.0-75.0[facility] Comment on above:Performed By: #### [id number] #### [facility] [address], [place] [address]Ppnmrjho135.0 E9/IPehltu815.0-500.0[facility] Comment on above:Performed By: #### [id number] #### [facility] [address], [place] [address]Hthvhubm mean volume (Bld) [Entitic vol]9.1 fLNormal6.4-10.8 [facility] HospitalComment on above:Performed By: #### [id number] #### [facility] [address], [place] [address]RIG1.1 E12/LLow4.3-5.9[facility] HospitalComment on above:Performed By: #### [id number] #### [facility] [address] [place] [address]FXX5.9 E9/LNormal4.0-11.0[facility] HospitalComment on above:Performed By: #### [id number] #### [facility] [address] [place], [place] [address]INJJCTMNIRlnjhbq By: Lab Amena on 98-29-4670Sarprlt [Mass/Vol]203 mg/qFUoak66 - 99 mg/dLCARNEGIE [facility] [place] POC SubsectionComment on above:Result Comment: Notified RN/JOEL Device [id number] 1Invalid Interpretation Code [facility] [place] P[place] SubsectionPOC UsernameWYLIE, ARIANNAInvalid Interpretation CodeCARNEGIE [facility] [place] POC SubsectionSodium [Moles/Vol]185224924 mmol/LInvalid Interpretation CodeCARNEGIE [facility] [place] POC SubsectionCHEMISTRYOrdered By: SYSTEM SYSTEM on 15-18-0034Xxmpv gap [Moles/Vol] 15 mmol/LNormal6 - 16 mEq/LRemisol ChemCalcium [Mass/Vol]8.8 mg/dLLow8.9 - 11.1 mg/dLRemisol ChemChloride [Moles/Vol]104 mmol/PKokkqv165 - 111 mmol/LRemisol ChemCO2 [Moles/Vol]26 mmol/QGfmsgg90 - 31 mmol/LRemisol ChemCreatinine [Mass/Vol]1.6 mg/dLHigh0.5 - 1.3 mg/dLRemisol ChemGFR/1.73 sq M.predicted MDRD (S/P/Bld) [Vol rate/Area]42 mL/min/1.73 m2Low>=59mL/min/1.73 a6Fqfazru Chem Glucose [Mass/Vol]222 mg/vLVvjw55 - 199 mg/dLRemisol ChemPotassium [Moles/Vol] 4.1 mmol/LNormal3.5 - 5.3 mmol/LRemisol ChemSodium [Moles/Vol]141 mmol/LNormal 135 - 145 mmol/LRemisol ChemUrea nitrogen [Mass/Vol]34 mg/dLHigh5 - 21 mg/dL Remisol ChemUrea nitrogen/Creatinine [Mass ratio]21 mg/ryPpdx37 - 20Remisol Chem Capillary Glucose POCon 77-69-8905Nxkfbah [Mass/Vol]203 mg/qIRdii48-06WtlbiqCleveland Clinic Fairview HospitalComment on above:Result Comment: Notified RN/MDPerformed By: #### [id number] #### [facility] [address] [place] [address]Jiwkekv [Mass/Vol]240 mg/vJPpfb05-16CfcofxCleveland Clinic Fairview Hospital Comment on above:Result Comment: Notified RN/MDPerformed By: #### [id number] #### [facility] [address] [place] [address]Bdofone [Mass/Vol]304 mg/mXBqof54-92Sycvfc[address] Comment on above:Result Comment: Notified RN/MDPerformed By: #### [id number] #### [facility] [address] [place] [address]Epmkjzx [Mass/Vol]191 mg/dNWyyc63-47Ecjgcu[address] Comment on above:Result Comment: Notified RN/MDPerformed By: #### [id number] #### [facility] [address] [place] [address]Fobdwu Queryon 52-37-8136Aluhgk QueryCoding Query From: Tanesha Mcdowell RN To: Anai [...] showing bilateral pleural effusions-consult pulm if needed. Echocardiogram???showing EF 65-70% with moderate LV hypertrophy [...] ]Acute on Chronic Diastolic (Preserved EF) Heart FailureNoCincinnati VA Medical CenterCoding QueryCoding Query From: Tanesha Mcdowell RN To: Anai [...] due to mismatch demand supply. Continue current management.Continue to trend. Obtain 2D echo. Treat acute [...] you!tanesha [id number] From: Anai URIARTE To: Jeremias RNTanesha; Sent: 04/17/2025 15:42:37 EDT Subject: RE: Coding Query Caller Name: NADIR BETH; Caller Number: Sergio , M __]Demand Ischemia (without a myocardial infarction)NormalCleveland Clinic Fairview HospitalHEMATOLOGYOrdered By: SYSTEM SYSTEM on 69-33-9592Wjvtqzosv/100 WBC (Bld) 0.6 %Normal0.0 - 2.0 %Remisol HemeBasophils/Leukocytes Auto (Bld) [Pure # fraction]0.1 E9/LNormal0.0 - 0.2 E9/LRemisol HemeEosinophils (Bld) [#/Vol]0.1 E9/LNormal0.0 - 0.5 E9/LRemisol HemeEosinophils/100 WBC (Bld)0.6 %Normal0.0 - 8.0 %Remisol HemeErythrocyte distribution width (RBC) [Ratio]20.3 %High10.9 - 14.2 %Remisol HemeHematocrit (Bld) [Volume fraction]34.9 %Low37.7 - 49.0 % Remisol HemeHemoglobin (Bld) [Mass/Vol]11.2 g/dLLow13.5 - 17.5 gm/dLRemisol Heme Lymphocytes (Bld) [#/Vol]0.7 E9/LLow1.0 - 4.0 E9/LRemisol HemeLymphocytes/100 WBC (Bld)7.1 %Low14.0 - 50.0 %Remisol HemeMCH (RBC) [Entitic mass]27.5 pgNormal 27.0 - 34.0 pgRemisol HemeMCHC (RBC) [Mass/Vol]32.2 g/zCNqwmuw02.4 - 36.0 gm/dL Remisol HemeMCV (RBC) [Entitic vol]85.4 rPNvmspt28.0 - 100.0 fLRemisol Heme Monocytes (Bld) [#/Vol]1.4 E9/LHigh0.2 - 1.0 E9/LRemisol HemeMonocytes/100 WBC (Bld)13.7 %Normal4.0 - 14.0 %Remisol HemeNeutrophils (Bld) [#/Vol]7.7 E9/LHigh 2.0 - 7.5 E9/LRemisol HemeNeutrophils/100 WBC (Bld)78.0 %High36.0 - 75.0 % Remisol HemePlatelet mean volume (Bld) [Entitic vol]9.1 fLNormal6.4 - 10.8 fL Remisol HemePlatelets (Bld) [#/Vol]237.0 E9/XAuhjek492.0 - 500.0 E9/LRemisol HemeRBC (Bld) [#/Vol]4.1 E12/LLow4.3 - 5.9 E12/LRemisol HemeWBC corrected for nucl RBC Auto (Bld) [#/Vol]9.9 E9/LNormal4.0 - 11.0 E9/LRemisol Heme Interdisciplinary Note - Case Manageron 24-66-1150Kvgbtfqosbzooigsu Note - Case ManagerInterdisciplinary Note - Surgery Nurse Patient awake and alert eating breakfast in bed. and dtr at bedside. [facility], patient has completed 3MN and can dc when medically clear. and dtr unsure if they will transport patient or if they will need transport set up. Dtr states she would like to see how patient does with PT first. Denies any further concerns. Family will transport [facility] CenterComment on above:Result Comment: Electronically Signed By: Jihan De Oliveira\.br\Date and Time Signed: 04/17/25 10:54 EDTInterdisciplinary Note - Case ManagerInterdisciplinary Note - Surgery Nurse Patient awake and alert eating breakfast in bed. and dtr at bedside. [facility], patient has completed 3MN and can dc when medically clear. and dtr unsure if they will transport patient or if they will need transport set up. Dtr states she would like to see how patient does with PT first. Denies any further concerns.NormalCleveland Clinic Fairview HospitalComment on above:Result Comment: Electronically Signed By: Jihan De Oliveira\.br\Date and Time Signed: 04/17/25 08:41 EDTRPR with Conf Rfxon [id number] QualNon-ReactiveInvalid Interpretation CodeNon ReactiveCleveland Clinic Fairview HospitalComment on above:Result Comment: Performed at: [facility] [address] [id number] PhD Huan VyasPerformed By: #### [id number] #### [facility] [address], [place] [address]wDSZpd 41-70-0571jCZN00 mL/min/1.73 m2Low>=59[facility] HospitalComment on above:Performed By: #### [id number] #### [facility] [address], [place] [address]SHHpz 60-49-2599Dylzx gap [Moles/Vol]18 mmol/LHigh6-16[facility] HospitalComment on above:Performed By: #### [id number] #### [facility] [address], [place] [address]VAA/Creat Ratio19 No YqpedPgykwo14-44IyzeomCleveland Clinic Fairview HospitalComment on above:Performed By: #### [id number] #### [facility] [address], [place] [address]Fwipfix [Mass/Vol]9.2 mg/dLNormal8.9-11.1FOhioHealth Riverside Methodist HospitalComment on above:Performed By: #### [id number] #### [facility] [address], [place] [address]Kfdvyxyi [Moles/Vol]103 mmol/FQerhzv111-813NmevtkCleveland Clinic Fairview HospitalComment on above:Performed By: #### [id number] #### [facility] [address], [place] [address]RD7 [Moles/Vol]24 mmol/XQtpdaf09-63YvgfgcC[facility] Clinic [facility] Hospital Comment on above:Performed By: #### [id number] #### [facility] [address], [place] [address]Qjucphqoqy [Mass/Vol]1.7 mg/dLHigh0.5-1.3FOhioHealth Riverside Methodist HospitalComment on above:Performed By: #### [id number] #### [facility] [address], [place] [address]Axeagix [Mass/Vol]212 mg/cIEdft40-438SgnyjwCleveland Clinic Fairview HospitalComment on above:Performed By: #### [id number] #### [facility] [address] [place] [address]Kmpvntlsr [Moles/Vol]3.9 mmol/LNormal3.5-5.3FOhioHealth Riverside Methodist HospitalComment on above:Performed By: #### [id number] #### [facility] [address] [place] [address]Ymbbtz [Moles/Vol]141 mmol/DUolbsv727-174DlyknwCleveland Clinic Fairview HospitalComment on above:Performed By: #### [id number] #### [facility] [address], [place] [address]Hqiw nitrogen [Mass/Vol]33 mg/dLHigh5-21[facility] HospitalComment on above:Performed By: #### [id number] #### [facility] [address], [place] [address]HWX w/ Auto Diffon 06-52-7771Oqgkblfa Absolute0.0 E9/LNormal 0.0-0.2FOhioHealth Riverside Methodist HospitalComment on above:Performed By: #### [id number] #### [facility] [address] [place] [address]Xtphheapi/100 WBC (Bld)0.1 %Normal0.0-2.0[facility] HospitalComment on above:Performed By: #### [id number] #### [facility] [address] [place] [address]Boc Absolute0.0 E9/LNormal0.0-0.5FOhioHealth Riverside Methodist Hospital Comment on above:Performed By: #### [id number] #### [facility] [address] [place] [address]Tnqklkatuvb/100 WBC (Bld)0.2 %Normal0.0-8.0[facility] HospitalComment on above:Performed By: #### [id number] #### [facility] [address] [place] [address]Dwklrsmgkso distribution width (RBC) [Ratio]20.4 %High10.9-14.2 [facility] HospitalComment on above:Performed By: #### [id number] #### [facility] [address] [place] [address]Bzhegbvdpg (Bld) [Volume fraction]37.2 %Low37.7-49.0[facility] HospitalComment on above:Performed By: #### [id number] #### [facility] [address] [place] [address]Tffvxjdxvy (Bld) [Mass/Vol]11.9 g/dLLow13.5-17.5FOhioHealth Riverside Methodist HospitalComment on above:Performed By: #### [id number] #### [facility] [address] [place] [address]Uqwio Absolute0.7 E9/LLow1.0-4.0[facility] Comment on above:Performed By: #### [id number] #### [facility] [address] [place] [address]Kzqgqljujbu/100 WBC (Bld)4.6 %Low14.0-50.0[facility] HospitalComment on above:Performed By: #### [id number] #### [facility] [address], [place] [address]KPA (RBC) [Entitic mass]27.2 ktRbvyef36.0-34.0[facility] HospitalComment on above:Performed By: #### [id number] #### [facility] [address], [place] [address]PWJF (RBC) [Mass/Vol]32.0 g/nSOpogul42.4-36.0[facility] HospitalComment on above:Performed By: #### [id number] #### [facility] [address], [place] [address]YOM (RBC) [Entitic vol]84.9 kXIjdgjr19.0-100.0[facility] HospitalComment on above:Performed By: #### [id number] #### [facility] [address] [place] [address]Yevq Absolute1.6 E9/LHigh0.2-1.0[facility] Comment on above:Performed By: #### [id number] #### [facility] [address], [place] [address]Smskjuiiy/100 WBC (Bld)10.8 %Normal4.0-14.0[facility] HospitalComment on above:Performed By: #### [id number] #### [facility] [address], [place] [address]Pyvnbg Frxaobua21.3 E9/LHigh2.0-7.5FOhioHealth Riverside Methodist Hospital Comment on above:Performed By: #### [id number] #### [facility] [address], [place] [address]Saqdpe Auto84.3 %High36.0-75.0[facility] Comment on above:Performed By: #### [id number] #### [facility] [address], [place] [address]Uljsreja574.0 E9/XDqelcw304.0-500.0[facility] Comment on above:Performed By: #### [id number] #### [facility] [address], [place] [address]Nbkrlleh mean volume (Bld) [Entitic vol]8.7 fLNormal6.4-10.8 [facility] HospitalComment on above:Performed By: #### [id number] #### [facility] [address], [place] [address]FZV7.4 E12/LNormal4.3-5.9[facility] HospitalComment on above:Performed By: #### [id number] #### [facility] [address], [place] [address]VEU81.6 E9/LHigh4.0-11.0[facility] HospitalComment on above:Performed By: #### [id number] #### [facility] [address], [place] [address]GOVAHYJRWXxljcts By: SYSTEM SYSTEM on 07-17-2481Tkyun gap [Moles/Vol]18 mmol/LHigh6 - 16 mEq/LRemisol ChemCalcium [Mass/Vol]9.2 mg/dL Normal8.9 - 11.1 mg/dLRemisol ChemChloride [Moles/Vol]103 mmol/LCprnjl358 - 111 mmol/LRemisol ChemCO2 [Moles/Vol]24 mmol/MTiyyhw43 - 31 mmol/LRemisol Chem Creatinine [Mass/Vol]1.7 mg/dLHigh0.5 - 1.3 mg/dLRemisol ChemGFR/1.73 sq M.predicted MDRD (S/P/Bld) [Vol rate/Area]39 mL/min/1.73 m2Low>=59mL/min/1.73 m2 Remisol ChemGlucose [Mass/Vol]212 mg/hNEfik76 - 199 mg/dLRemisol ChemMagnesium [Mass/Vol]2.4 mg/dLNormal1.3 - 2.4 mg/dLRemisol ChemPotassium [Moles/Vol]3.9 mmol/LNormal3.5 - 5.3 mmol/LRemisol ChemSodium [Moles/Vol]141 mmol/DAgynbq926 - 145 mmol/LRemisol ChemUrea nitrogen [Mass/Vol]33 mg/dLHigh5 - 21 mg/dLRemisol ChemUrea nitrogen/Creatinine [Mass ratio]19 mg/nfPcwake25 - 20Remisol Chem Capillary Glucose POCon 43-57-0138Sgqpkhs [Mass/Vol]265 mg/oRFsyj57-71GrcauqCleveland Clinic Fairview HospitalComment on above:Result Comment: Notified RN/MDPerformed By: #### [id number] #### [facility] [address], [place] [address]Bgviayq [Mass/Vol]246 mg/gRBigl71-71Epsdu[address] Comment on above:Result Comment: Notified RN/MDPerformed By: #### [id number] #### [facility] [address], [place] [address]Nkdduzh [Mass/Vol]294 mg/tJHqcn78-70Wsopdx[address] Comment on above:Result Comment: Notified RN/MDPerformed By: #### [id number] #### [facility] [address], [place] [address]Aicnmxe [Mass/Vol]195 mg/sJUthx70-23Urbqfv[address] Comment on above:Result Comment: Notified RN/MDPerformed By: #### [id number] #### [facility] [address], [place] [address]Ybpltl Queryon [id number] QueryCoding Query From: Tanesha Mcdowell RN To: Anai [...] due to mismatch demand supply. Continue current management.Continue to trend. Obtain 2D echo. Treat acute [...] answer is desired or expected. Thank you!tanesha [address]NormalCleveland Clinic Fairview HospitalHEMATOLOGYOrdered By: SYSTEM SYSTEM on 06-54-5274Egdcyllwk/100 WBC (Bld) 0.1 %Normal0.0 - 2.0 %Remisol HemeBasophils/Leukocytes Auto (Bld) [Pure # fraction]0.0 E9/LNormal0.0 - 0.2 E9/LRemisol HemeEosinophils (Bld) [#/Vol]0.0 E9/LNormal0.0 - 0.5 E9/LRemisol HemeEosinophils/100 WBC (Bld)0.2 %Normal0.0 - 8.0 %Remisol HemeErythrocyte distribution width (RBC) [Ratio]20.4 %High10.9 - 14.2 %Remisol HemeHematocrit (Bld) [Volume fraction]37.2 %Low37.7 - 49.0 % Remisol HemeHemoglobin (Bld) [Mass/Vol]11.9 g/dLLow13.5 - 17.5 gm/dLRemisol Heme Lymphocytes (Bld) [#/Vol]0.7 E9/LLow1.0 - 4.0 E9/LRemisol HemeLymphocytes/100 WBC (Bld)4.6 %Low14.0 - 50.0 %Remisol HemeMCH (RBC) [Entitic mass]27.2 pgNormal 27.0 - 34.0 pgRemisol HemeMCHC (RBC) [Mass/Vol]32.0 g/gWBsnaax11.4 - 36.0 gm/dL Remisol HemeMCV (RBC) [Entitic vol]84.9 jIQsprcn98.0 - 100.0 fLRemisol Heme Monocytes (Bld) [#/Vol]1.6 E9/LHigh0.2 - 1.0 E9/LRemisol HemeMonocytes/100 WBC (Bld)10.8 %Normal4.0 - 14.0 %Remisol HemeNeutrophils (Bld) [#/Vol]12.3 E9/LHigh 2.0 - 7.5 E9/LRemisol HemeNeutrophils/100 WBC (Bld)84.3 %High36.0 - 75.0 % Remisol HemePlatelet mean volume (Bld) [Entitic vol]8.7 fLNormal6.4 - 10.8 fL Remisol HemePlatelets (Bld) [#/Vol]268.0 E9/YNymggo447.0 - 500.0 E9/LRemisol HemeRBC (Bld) [#/Vol]4.4 E12/LNormal4.3 - 5.9 E12/LRemisol HemeWBC corrected for nucl RBC Auto (Bld) [#/Vol]14.6 E9/LHigh4.0 - 11.0 E9/LRemisol AgtmFxdZ1hoh 19-37-8876DwE4z (Bld) [Mass fraction]9.9 %High<=5.9[facility] Comment on above:Performed By: #### [id number] #### [facility] [address] [address]Kvkdabqrf Clinical Summaryon 65-62-1421Gnckfdngf Clinical SummaryInpatient Clinical Summary [address] [address] Clinical Summary Person Information: Name: NADIR BETH Age: 85 Years : 1940 Sex: Male PCP: Van Youssef MD Marital Status: Race: White Ethnicity: Non- or Language: Bruneian Visit Id: Visit Reason: Altered mental status; Headache; Potential stroke; stroke Speciality: Acuity: Enc Type: Inpatient Med Service: Medical Arrival: 04/14/2025 16:53:36 Discharge: Dispo Type: Admitted as IP to this Hosp Address: [address] [id number] Provider Notes: Diagnosis: 1:CVA (cerebrovascular accident); 2:Atrial [...] aspirin 81 Milligram By Mouth every day. betamethasone-clotrimazole topical (betamethasone-clotrimazole Top 0.05%-1% Crm 15 gram) budesonide-formoterol (Symbicort) [...] VERDUGO DO Consulting Physician: Clover Walker MD; [facility] [place] Cardio, XXXX; [facility] [place] Wound, XXXX Referring Physician: Follow up: With: Address: When: Neurology [phone] Within 2 to 4 weeks Comments: Call for followup a (more content not included)...[facility] CenterInpatient Patient Summaryon [id number] Patient SummaryInpatient Patient Summary [place] [address] Patient Discharge Instructions PERSON INFORMATION Name: NADIR BETH Date of : 1940 Current Date: 04/16/2025 09:29:45 PHYSICIANS Admitting Physician: Layne VERDUGO DO Primary Care Physician: Van Youssef MD PCP Comment: Discharge Diagnosis: 1:CVA (cerebrovascular accident); 2:Atrial fibrillation; 3:Hypertensive urgency; 4:Pericardial effusion; 5:Congestive heart failure; 6:Chronic kidney disease; 7:Essential tremor;8:DM2 (diabetes mellitus, type 2); 9:BPH with urinary obstruction; 10:On deep vein thrombosis (DVT)prophylaxis; 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 Type Location Start Finish State URO Office Visit [facility] [place] NAV Dominguez 06/11/2025 11:40 AM 06/11/2025 12:00 PM Confirmed Comment: KIRIT Mixon RONALD L, have received the attached patient education materials/instructions and have verbalized understanding: Patient Signature Date Clinican/Nurse Signature Date HERE ARE THE MEDICATION CHANGES THAT OCCURRED DURING YOUR HOSPITAL STAY Medications to Continue with No Changes Other Medications acyclovir 400 Milligram By Mouth 3 times a day. Last Dose: Next Dose: alprazolam (Xanax 0.25 mg Tab) 1 Tablets By Mouth every 8 hours as needed as needed for anxiety. Last Dose: Next Dose: apixaban (Eliquis) 2.5 Milligram By Mouth 2 times a day. Last Dose: Next Dose: aspirin 81 Milligram By Mouth every day. Last Dose: Next Dose: betamethasone-clotrimazole topical (betamethasone-clotrimazole Top 0.05%-1% Crm 15 gram) Last Dose: Next Dose: budesonide-formoterol (Symbicort) 80-4.5 mcg/actuation Inhalation 2 times a day. Last Dose: Next Dose: cetirizine (cetirizine 10 mg Tab) 1 Tablets By Mouth every day. Last Dose: Next Dose: cholecalciferol (Vitamin D3 2000 intl units) 2,000 Units By Mouth every day. Last Dose: Next Dose: clonidine 0.2 Milligram By Mouth 2 times a day. Last Dose: Next Dose: dicyclomine 10 Milligram By Mouth 2 times a day. Last Dose: Next Dose: empagliflozin (Jardiance 10 mg oral tablet) 25 Milligram By Mouth once a day (in the morning). Last Dose: Next Dose: ezetimibe (Zetia) 10 Milligram By Mouth every day. Last Dose: Next Dose: ferrous sulfate 325 Milligram 2 times a day. Last Dose: Next Dose: furosemide (Lasix 80 mg Tab) By Mouth every day. Last Dose: Next Dose: furosemide (Lasix) 40 Milligram. Last Dose: Next Dose: gabapentin 600 Milligram By Mouth every day at 12:00 noon. Last Dose: Next Dose: glimepiride 8 Milligram By Mouth every day. Last Dose: Next Dose: hydrALAZINE 100 Milligram By Mouth 2 times a day. Last Dose: Next Dose: labetalol 300 Milligram By Mouth 3 times a day., 150mg BID Last Dose: Next Dose: magnesium oxide 500 Milligram By Mouth 3 times a day. Last Dose: Next Dose: metformin (metformin 500 mg Tab) 1 Tablets By Mouth 3 times a day. Last Dose: Next Dose: metoclopramide 5 Milligram By Mouth 2 times a day. La (more content not included)...[facility] Interdisciplinary Note - Case Manageron 17-30-8285Zyuktdxvvwplxvsoh Note - Case ManagerInterdisciplinary Note - Surgery Nurse CRM to room 202 Patient is awake, [...] and pericardial effusion. Patient is assigned to [facility] SOFTWARE DEVELOPMENT ENGINEER, see notes. Patient has wound, cardiology and neurology on case. Patient is pending MRI. He is getting an ECHO now. Patient has recs from therapy for SNF. Patient spouse would like him referred to [facility]. Patient can DC there if accepted on 04/17 per 3 M needed. Patient white board updated. CRM following, contact info provided. DC plan SNF, pending [facility]:Result Comment: Electronically Signed By: Cierra Rouse\.br\Date and Time Signed: 04/16/25 11:58 EDTInterdisciplinary Note - Case ManagerInterdisciplinary Note - Surgery Nurse CRM to room 202 Patient is awake, [...] and pericardial effusion. Patient is assigned to [facility] SOFTWARE DEVELOPMENT ENGINEER, see notes. Patient has wound, cardiology and neurology on case. Patient is pending MRI. He is getting an ECHO now. Patient has recs from therapy for SNF. Patient spouse would like him referred to [facility]. Patient can DC there if accepted on 04/17 per 3 M needed. Patient white board updated. CRM following, contact info provided. DC plan SNF, pending [facility]Comment on above:Result Comment: Electronically Signed By: Cierra Rouse.mary\Date and Time Signed: 04/16/25 09:48 EDTInterdisciplinary Note - Nursingon 38-52-3540Cwtgujtgbeyxhgaoo Note - NursingInterdisciplinary Note - Nursing pt has a stasis ulcer on left lower leg. 1.2cm long by 1.2cm wide by 0.1 depth. staff can continue with antibiotic ointment, or may use maya and dry dressing change every other day. follow up out patient [facility]NoC[facility] CenterInterdisciplinary Note - OTon 82-61-5248Mizmqcvkzegejgjky Note - OTInterdisciplinary Note - OT OT [facility] six clicks score 16/24 = SNF. Patient requires MIN A w/ sit to stand transfers at eob, Min- mod A w dynamic standing adls. Pt requires mod vc for walker safety and sequencing w/ all functional tasks. Inpatient OT services to follow daily to progress as tolerates w/ self help skills.[facility] CenterMRI Brain w/o Contraston 94-33-4820LOX Brain w/o ContrastExam Date/Time: 04/16/2025 11:05 EDT Reason for Exam: [...] Thom Rashid MD Transcribed by: MARII Technologist: AmaliaCleveland Clinic Fairview HospitalMagnesiumon 98-68-6045Xtzwzyzrp [Mass/Vol]2.4 mg/dLNormal1.3-2.4FOhioHealth Riverside Methodist Hospital Comment on above:Performed By: #### [id number] #### [facility] [address], [place] [address]iVBKih 05-10-8965vDCB55 mL/min/1.73 m2Low>=59C[facility] Clinic Fairview HospitalComment on above:Performed By: #### [id number] #### [facility] [address], [place] [address]JQLgk 96-92-6879Stqyt gap [Moles/Vol]20 mmol/LHigh6-16C[facility]view HospitalComment on above:Performed By: #### [id number] #### [facility] [address], [place] [address]BZX/Creat Ratio18 No FutziJvowmz12-59AgrpvdCleveland Clinic Fairview HospitalComment on above:Performed By: #### [id number] #### [facility] [address], [place] [address]Tnzqhaq [Mass/Vol]9.4 mg/dLNormal8.9-11.1FOhioHealth Riverside Methodist HospitalComment on above:Performed By: #### [id number] #### [facility] [address], [place] [address]Ezeymrfr [Moles/Vol]102 mmol/MCevbcn809-354GxltpwCleveland Clinic Fairview HospitalComment on above:Performed By: #### [id number] #### [facility] [address], [place] [address]VU5 [Moles/Vol]24 mmol/CNylatw32-60CmlctzCleveland Clinic Fairview Hospital Comment on above:Performed By: #### [id number] #### [facility] [address], [place] [address]Lsarjyysqr [Mass/Vol]1.7 mg/dLHigh0.5-1.3FOhioHealth Riverside Methodist HospitalComment on above:Performed By: #### [id number] #### [facility] [address], [place] [address]Ixadutf [Mass/Vol]208 mg/aTZkop25-669HukujsCleveland Clinic Fairview HospitalComment on above:Performed By: #### [id number] #### [facility] [address], [place] [address]Qrpuxqlfl [Moles/Vol]4.0 mmol/LNormal3.5-5.3FOhioHealth Riverside Methodist HospitalComment on above:Performed By: #### [id number] #### [facility] [address], [place] [address]Pqdrre [Moles/Vol]142 mmol/FScicjw383-637XxxvvtCleveland Clinic Fairview HospitalComment on above:Performed By: #### [id number] #### [facility] [address], [place] [address]Ekyf nitrogen [Mass/Vol]30 mg/dLHigh5-21C[facility]view HospitalComment on above:Performed By: #### [id number] #### [facility] [address], [place] [address]QTCCUHFTIVfwipvy By: SYSTEM SYSTEM on 56-37-3585Yugpqwjrwgy [Mass/Vol]210 mg/qMXlcc533 - 200 mg/dLRemisol ChemCholesterol in HDL [Mass/Vol] 88 mg/dLInvalid Interpretation CodeRemisol ChemComment on above:Result Comment: '>= 60 LOW RISK' '<= 40 HIGH RISK'Cholesterol in LDL [Mass/Vol]107 mg/dLNormal<=129mg/dLRemisol ChemCholesterol in VLDL [Mass/Vol]9 mg/dLNormal7 - 40 mg/dLRemisol ChemCobalamin (Vitamin B12) [Mass/Vol]573 pg/cPJiuhfu39 - 1500 pg/mLRemisol ChemFolate [Mass/Vol]ng/mLNormal>=6.7ng/mLRemisol ChemMagnesium [Mass/Vol]2.6 mg/dLHigh1.3 - 2.4 mg/dLRemisol ChemTriglyceride [Mass/Vol]44 mg/dLNormal<=149mg/dLRemisol ChemTroponin HS62.60 pg/mLInvalid Interpretation Code15.90 - 38.40 pg/mLRemisol ChemComment on above:Result Comment: Critical Result Verified by Repeat Analysis Critical Result I_TnIHS:62.6 Called to and read back by: NAKIA DE LA TORRE at: 04/15/2025 08:13:02 by:Shahlaterpretive Data: The 95% CI (Confidence Interval) PPV (Positive Predictive Value) for myocardial infarction in females is 38 pg/mL, in males 51 pg/mL. The results should be used in conjunction withclinical conditions of myocardial infarction. (Access High Sensitivity Troponin I Instructions For Use, Roxane [place], June 2018)TSH Qn0.50 m[IU]/LNormal0.34 - 5.60 mcIU/mLRemisol ChemCHEMISTRY Ordered By: Priyanka Daly on 67-38-6824VnI2b (Bld) [Mass fraction]9.9 %High <=5.9%[facility] [place] ChemAutoSSCOAGULATIONOrdered By: Deb Maza on 46-85-0802gIEF Coag (PPP) [Time]45.1 sHigh25.1 - 36.5 second(s)[facility] [place] Auto CoagComment on above: Interpretive Data: Parameter 15 days - 4 weeks 1 - [...] the same coagulation reagent and instrumentation as [facility] [place]. Currently there are no coagulation studies available worldwide for children to 14 days, andno normal ranges. Heparin therapeutic range (represented by Anti-Factor Xa activity of 0.2 - 0.4 U/mL) corresponds to PTT of 56.6 - 109.0 sec.INR Coag (PPP) [Relative time]0.95 {INR}Invalid Interpretation CodeCARNEGIE TRI-COUNTY [facility] [place] Auto CoagComment on above:Interpretive Data: INR results are specifically intended to assess patients stabilized on long-term Anticoagulation therapy suggested INR s Less Intensive Anticoagulation 2.0 3.0 Conventional Range 3.0 4.5PT Coag (PPP) [Time]10.6 sNormal9.4 - 12.5 second(s) [facility] [place] Auto CoagComment on above:Interpretive Data: 15 days - 4 weeks 1 - 5 months 6 -11 months 1 5 years 6 10 years 11 -17 years Mean: 11.2 (9.5 12.6) Mean: 11.0 (9.7 12.8) Mean: 11.0 (9.8 13.0) Mean: 11.3 (9.9 13.4) Mean: 11.7 (10.0 14.6) Mean: 11.8 (10.0 - 14.1) Pediatric Reference ranges were obtained from a study by Hood Sun et alJeannie prepared from 1437 samples obtained at 7 different centers using the same coagulation reagent and instrumentation as [facility] [place]. Currently there are no coagulation studies available worldwide for children to 14 days, andno normal ranges.COAGULATIONOrdered By: Samir Naidu on 84-27-1777dLJU Coag (PPP) [Time]53.2 sHigh25.1 - 36.5 second(s)[facility] [place] Auto CoagComment on above:Interpretive Data: Parameter 15 days - 4 weeks 1 - [...] the same coagulation reagent and instrumentation as [facility] [place]. Currently there are no coagulation studies available worldwide for children to 14 days, andno normal ranges. Heparin therapeutic range (represented by Anti-Factor Xa activity of 0.2 - 0.4 U/mL) corresponds to PTT of 56.6 - 109.0 sec.INR Coag (PPP) [Relative time]0.96 {INR}Invalid Interpretation CodeCARNEGIE TRI-COUNTY [facility] [place] Auto CoagComment on above:Interpretive Data: INR results are specifically intended to assess patients stabilized on long-term Anticoagulation therapy suggested INR s Less Intensive Anticoagulation 2.0 3.0 Conventional Range 3.0 4.5PT Coag (PPP) [Time]10.8 sNormal9.4 - 12.5 second(s) [facility] [place] Auto CoagComment on above:Interpretive Data: 15 days - 4 weeks 1 - [...] the same coagulation reagent and instrumentation as [facility] [place]. Currently there are no coagulation studies available worldwide for children to 14 days, andno normal ranges.Capillary Glucose [facility] 75-14-1760Jfizjgy [Mass/Vol]177 mg/dLHigh 55-99[facility]view HospitalComment on above:Result Comment: Notified RN/MD Performed By: #### [id number] #### [facility] [address], [place] [address]Dmcrxbj [Mass/Vol]202 mg/qUFaii64-82OzkibpCleveland Clinic Fairview Hospital Comment on above:Result Comment: Notified RN/MDPerformed By: #### [id number] #### [facility] [address], [place] [address]Upfiwbq [Mass/Vol]216 mg/sKVqyp75-73EhijocCleveland Clinic Fairview Hospital Comment on above:Result Comment: Notified RN/MDPerformed By: #### [id number] #### [facility] [address], [place] [address]Cvzhjpf [Mass/Vol]242 mg/eUKaeh00-81WozpgaCleveland Clinic Fairview Hospital Comment on above:Result Comment: Notified RN/MDPerformed By: #### [id number] #### [facility] [address], [place] [address]Tigql [place] 26-29-0959IM Tube CollectedYesInvalid Interpretation CodeCleveland Clinic Fairview HospitalComment on above:Performed By: #### [id number] #### [facility] [address], [place] [address]Vhzcmpmo 18-26-6521Plfedm Lvl>22.3Normal>=6.7FOhioHealth Riverside Methodist HospitalComment on above:Performed By: #### [id number] #### [facility] [address], [place] [address]Ofllpnlubojt 87-75-9464Etqaxssdnf (Bld) [Mass/Vol]12.2 g/dLLow 13.5-17.5FOhioHealth Riverside Methodist HospitalComment on above:Performed By: #### [id number] #### [facility] [address] [place] [address]Wzpuwsbwybjtcgumf Note - OTon 18-80-4152Lcrvqdttqcpcuzlja Note - OTInterdisciplinary Note - OT OT chart reviewed and spoke to nursing with request to hold today until pt. is more medically stable. Will recheck tomorrow.[facility] Interdisciplinary Note - Speech Languageon 05-56-4966Jrlsfmxlhehkxubyd Note - Speech LanguageInterdisciplinary Note - Speech Language Pt seen for BSE this am. Pt consuming thin liquids via straw and all textures of solids with no s/sof suspected penetration or aspiration. Recommend IDDSI level 7 (regular) and thin liquids. Pt also seen for SLE. Pt with noted difficulty in following directions, confrontation naming and orientation. Pt also noted to have a weak vocal quality with slurred speech. ST to follow for speech/language/cog up to 5x/week to address these deficits.[facility] CenterLipid Panelon 04-15-2025 Cholesterol [Mass/Vol]210 mg/xGMnib479-102EhmwcbCleveland Clinic Fairview HospitalComment on above:Performed By: #### [id number] #### [facility] [address], [place] [address]Yyxhiczassz in HDL [Mass/Vol]88 mg/dLInvalid Interpretation CodeCleveland Clinic Fairview HospitalComment on above:Result Comment: '>= 60 LOW RISK' '<= 40 HIGH RISK'Performed By: #### [id number] #### [facility] [address], [place] [address]Extgahjzoxv in LDL [Mass/Vol]107 mg/dLNormal<=129[facility] HospitalComment on above:Performed By: #### [id number] #### [facility] [address], [place] [address]Dvltldnfxvc in VLDL [Mass/Vol]9 mg/dLNormal7-40[facility] HospitalComment on above:Performed By: #### [id number] #### [facility] [address], [place] [address]Bjxefdurymwh [Mass/Vol]44 mg/dLNormal<=149[facility] HospitalComment on above:Performed By: #### [id number] #### [facility] [address], [place] [address]Exexihooudi 95-91-1030Peqkgyncb [Mass/Vol]2.6 mg/dLHigh1.3-2.4 [facility] HospitalComment on above:Performed By: #### [id number] #### [facility] [address] [address]IT & PTTon 53-37-8090VXW Coag (PPP) [Relative time]0.95 {INR} Invalid Interpretation CodeFisher R Adams Cowley Shock Trauma CenterComment on above:Result Comment: INR results are specifically intended to assess patients stabilized on long-term Anticoagulation therapy suggested INR???s ???Less Intensive Anticoagulation??? 2.0 ??? 3.0 Conventional Range 3.0 ??? 4.5Performed By: #### [id number] #### [facility] [address] [place], [place] [address]GK58.6 second(s)Normal9.4-12.5FOhioHealth Riverside Methodist Hospital Comment on above:Result Comment: 15 days - 4 weeks 1 - [...] the same coagulation reagent and instrumentation as [facility] [place]. Currently there are no coagulation studies available worldwide for children to 14 days, andno normal ranges.Performed By: #### [id number] #### [facility] [address] [place], [place] [address]FIX27.1 second(s)High25.1-36.5FOhioHealth Riverside Methodist Hospital Comment on above:Result Comment: Parameter 15 days - 4 weeks 1 - 5 months 6 - 11 months 1 - 5 years 6 - 10 years 11 - 17 years PTT Mean: 35.4 (27.6-45.6) Mean: 33.5 (24.8-40.7) Mean: 32.4 (25.1-40.7) Mean: 31.6 (24.0-39.2) Mean: 31.6 (26.9-38.7) Mean: 31.0 (24.6-38.4) Pediatric Reference ranges were obtained from a study by paul Pahn prepared from 1437 samples obtained at 7 different centers using the same coagulation reagent and instrumentation as [facility] [place]. Currently there are no coagulation studies available worldwide for children to 14 days, andno normal ranges. Heparin therapeutic range (represented by Anti-Factor Xa activity of 0.2 - 0.4 U/mL) corresponds to PTT of 56.6 - 109.0 sec.Performed By: #### [id number] #### [facility] [address], [place] [address]REV Coag (PPP) [Relative time]0.96 {INR}Invalid Interpretation [facility] HospitalComment on above:Result Comment: INR results are specifically intended to assess patients stabilized on long-term Anticoagulation therapy suggested INR???s ???Less Intensive Anticoagulation??? 2.0 ??? 3.0 Conventional Range 3.0 ??? 4.5Performed By: #### [id number] #### [facility] [address], [place] [address]XH75.8 second(s)Normal9.4-12.5FOhioHealth Riverside Methodist Hospital Comment on above:Result Comment: 15 days - 4 weeks 1 - [...] the same coagulation reagent and instrumentation as [facility] [place]. Currently there are no coagulation studies available worldwide for children to 14 days, andno normal ranges.Performed By: #### [id number] #### [facility] [address], [place] [address]HPQ91.2 second(s)High25.1-36.5FOhioHealth Riverside Methodist Hospital Comment on above:Result Comment: Parameter 15 days - 4 weeks 1 - [...] the same coagulation reagent and instrumentation as [facility] [place]. Currently there are no coagulation studies available worldwide for children to 14 days, andno normal ranges. Heparin therapeutic range (represented by Anti-Factor Xa activity of 0.2 - 0.4 U/mL) corresponds to PTT of 56.6 - 109.0 sec.Performed By: #### [id number] #### [facility] [address], [place] [address]Hvpblomu Counton 22-47-9822Rjwoacor773.0 E9/ISommsa391.0-500.0 [facility] HospitalComment on above:Performed By: #### [id number] #### [facility] [address], [place] [address]Jotogtnov Laboratory TestingOrdered By: Generated DomainUser on 53-84-4830Xgmvcq Ab RPR Ql (S)Non-ReactiveInvalid Interpretation CodeNon ReactiveCARNEGIE TRI-COUNTY [facility] [place] SendOutsSSComment on above:Result Comment: Performed at: [address] [id number] PhD Huan Gupta With T4fr Reflexon 94-25-3173WRP Qn0.50 m[IU]/LNormal0.34-5.60[facility] HospitalComment on above:Performed By: #### [id number] #### [facility] [address], [place] [address]Ulknvzhhoq 58-48-9638Gcagygkr HS62.60 pg/hKMqaffygw89.90-38.40 [facility] HospitalComment on above:Result Comment: Critical Result Verified by Repeat Analysis Critical Result [...] Sensitivity Troponin I Instructions For Use, [place], June 2018)Performed By: #### [id number] #### [facility] [address], [place] [address]BU with Cult Rflxon 86-86-1204Ohcwh (U)Light-YellowNormalYellow [facility] HospitalComment on above:Result Comment: Microscopic readings are only performed on those samples that meet specific criteria set forth by [facility].Performed By: #### [id number] #### [facility] [address], [place] [address]Nokrtba Ql (U)1+ mg/dLAbnormalNegativeCleveland Clinic Fairview HospitalComment on above:Performed By: #### [id number] #### [facility] [address], [place] [address]TL BloodTraceAbnormalNegativeCleveland Clinic Fairview HospitalComment on above:Performed By: #### [id number] #### [facility] [address], [place] [address]RL ClarityClearNormalClearCleveland Clinic Fairview HospitalComment on above:Performed By: #### [id number] #### [facility] [address], [place] [address]ZW Glucose4+ mg/dLAbnormalNegSycamore Medical Center Comment on above:Performed By: #### [id number] #### [facility] [address], [place] [address]KN Leuk EstNegativeNormalNegativeC[facility] Clinic [facility] Comment on above:Performed By: #### [id number] #### [facility] [address], [place] [address]ZS NitriteNegativeNormalNegativeC[facility] Clinic [facility] Comment on above:Performed By: #### [id number] #### [facility] [address], [place] [address]VX pH6.0Invalid Interpretation Code5.0-9.0[facility] HospitalComment on above:Performed By: #### [id number] #### [facility] [address], [place] [address]EF ProteinNegativeNormalNegSycamore Medical Center Comment on above:Performed By: #### [id number] #### [facility] [address], [place] [address]YG Spec Grav1.023Invalid Interpretation Code1.005-1.030[facility] HospitalComment on above:Performed By: #### [id number] #### [facility] [address], [place] [address]LE UrobilinogenNegativeNormalNegativeCleveland Clinic Fairview HospitalComment on above:Performed By: #### [id number] #### [facility] [address], [place] [address]Fdiwbqyoreei (U) [Mass/Vol]NegativeNormalNegativeCleveland Clinic Fairview HospitalComment on above:Performed By: #### [id number] #### [facility] [address], [place] [address]OTCDLASMWNNduszqv By: SYSTEM SYSTEM on 94-88-6300Eorqbobso Ql (U)NegativeNormalNegativemg/dLFT UA Auto SSClarity (U)Clear (04/15/25 4:58 AM)NormalClearFTM UA Auto SSColor (U)Light-Yellow 1 (04/15/25 4:58 AM)NormalYellowFT UA Auto SSComment on above:Interpretive Data: Microscopic readings are only performed on those samples that meet specific criteria set forth by [facility].Glucose Ql (U)4+ mg/dLInvalid Interpretation CodeNegativemg/dLFT UA Auto SSHemoglobin Auto test strip (U) [Mass/Vol]Trace mg/dLInvalid Interpretation CodeNegativemg/dLFT UA Auto SSKetones Auto test strip Ql (U)1+ mg/dLInvalid Interpretation Code Negativemg/dLFT UA Auto SSLeukocyte esterase Auto test strip Ql (U)Negative NormalNegativeLeu/uLFT UA Auto SSNitrite Auto test strip Ql (U)NegativeNormal Negativemg/dLFT UA Auto SSpH (U)6.0 *NA* (04/15/25 4:58 AM)Invalid Interpretation Code5.0 - 9.0[facility] [place] [place] UA Auto SSProtein Ql (U)NegativeNormalNegativemg/dLFT UA Auto SSSpecific gravity (U) [Rel density] 1.023 *NA* (04/15/25 4:58 AM)Invalid Interpretation Code1.005 - 1.030[facility] [place] UA Auto SS Urobilinogen (U) [Mass/Vol]NegativeNormalNegativemg/dLCARNEGIE [facility]-COUNT[facility] [place] UA Auto SSURINALYSIS Ordered By: Nick Farmer on 42-47-3784IQ Spec DescClean Catch (04/15/25 4:58 AM)NormalFT UA Auto SSVit B12on 83-21-3301Zhfmzeuhu (Vitamin B12) [Mass/Vol]573 pg/zYAlhrpd24-8133OktgddCleveland Clinic Fairview HospitalComment on above: Performed By: #### [id number] #### [facility] [address], [place] [address]tTCKxj 68-59-5246hHFQ56 mL/min/1.73 m2Low>=59C[facility] Fairview HospitalComment on above:Performed By: #### [id number] #### [facility] [address], [place] [address]QI Draw & Holdon 84-33-2012YF D&HSample drawn for Blood Ba NormalCleveland Clinic Fairview HospitalComment on above:Performed By: #### [id number] #### [facility] [address], [place] [address]EAAfc 41-26-9909Gkehb gap [Moles/Vol]15 mmol/LNormal6-16[facility] HospitalComment on above:Performed By: #### [id number] #### [facility] [address], [place] [address]EOD/Creat Ratio16 No QwpyoFdlviv73-14PjzdajCleveland Clinic Fairview HospitalComment on above:Performed By: #### [id number] #### [facility] [address], [place] [address]Tsqngkc [Mass/Vol]9.0 mg/dLNormal8.9-11.1FOhioHealth Riverside Methodist HospitalComment on above:Performed By: #### [id number] #### [facility] [address], [place] [address]Bugeyvja [Moles/Vol]103 mmol/FYhfkht531-806MfqhebCleveland Clinic Fairview HospitalComment on above:Performed By: #### [id number] #### [facility] [address], [place] [address]EM9 [Moles/Vol]24 mmol/XAwzncp26-05XqtgspCleveland Clinic Fairview Hospital Comment on above:Performed By: #### [id number] #### [facility] [address], [place] [address]Aepqppowjq [Mass/Vol]1.8 mg/dLHigh0.5-1.3FOhioHealth Riverside Methodist HospitalComment on above:Performed By: #### [id number] #### [facility] [address], [place] [address]Dmasbvh [Mass/Vol]245 mg/uAMdvu29-900LviatjCleveland Clinic Fairview HospitalComment on above:Performed By: #### [id number] #### [facility] [address], [place] [address]Ebnviqbqp [Moles/Vol]5.0 mmol/LNormal3.5-5.3FOhioHealth Riverside Methodist HospitalComment on above:Performed By: #### [id number] #### [facility] [address], [place] [address]Dsfuha [Moles/Vol]137 mmol/ZXbkkun259-523TjqogmCleveland Clinic Fairview HospitalComment on above:Performed By: #### [id number] #### [facility] [address], [place] [address]Djha nitrogen [Mass/Vol]28 mg/dLHigh5-21[facility] HospitalComment on above:Performed By: #### [id number] #### [facility] [address], [place] [address]OVGag 01-69-9888Usfyzqrvfrl peptide B (Bld) [Mass/Vol]512 pg/mL High5-80[facility]view HospitalComment on above:Performed By: #### [id number] #### [facility] [address], [place] [address]MAA w/ Auto Diffon 26-76-1918Xjyhckea Absolute0.1 E9/LNormal 0.0-0.2FOhioHealth Riverside Methodist HospitalComment on above:Performed By: #### [id number] #### [facility] [address], [place] [address]Hvlgzirzq/100 WBC (Bld)0.8 %Normal0.0-2.0C[facility] HospitalComment on above:Performed By: #### [id number] #### [facility] [address], [place] [address]Bxk Absolute0.1 E9/LNormal0.0-0.5FOhioHealth Riverside Methodist Hospital Comment on above:Performed By: #### [id number] #### [facility] [address], [place] [address]Mfpsvlxirvh/100 WBC (Bld)1.5 %Normal0.0-8.0[facility] HospitalComment on above:Performed By: #### [id number] #### [facility] [address] [place] [address]Dynqjxvdijr distribution width (RBC) [Ratio]19.7 %High10.9-14.2 [facility] HospitalComment on above:Performed By: #### [id number] #### [facility] [address] [place] [address]Getsgjbtyi (Bld) [Volume fraction]33.7 %Low37.7-49.0[facility] HospitalComment on above:Performed By: #### [id number] #### [facility] [address] [place] [address]Xkegkdtcov (Bld) [Mass/Vol]11.0 g/dLLow13.5-17.5FOhioHealth Riverside Methodist HospitalComment on above:Performed By: #### [id number] #### [facility] [address] [place] [address]Mrosy Absolute0.6 E9/LLow1.0-4.0[facility] Comment on above:Performed By: #### [id number] #### [facility] [address] [place] [address]Tarmklapylf/100 WBC (Bld)7.8 %Low14.0-50.0[facility] HospitalComment on above:Performed By: #### [id number] #### [facility] [address] [place] [address]PUY (RBC) [Entitic mass]27.5 luAnqxrs83.0-34.0[facility] HospitalComment on above:Performed By: #### [id number] #### [facility] [address] [place] [address]YVSP (RBC) [Mass/Vol]32.7 g/yAHhxqri58.4-36.0[facility] HospitalComment on above:Performed By: #### [id number] #### [facility] [address], [place] [address]XMA (RBC) [Entitic vol]84.0 iBFycwqc11.0-100.0[facility] HospitalComment on above:Performed By: #### [id number] #### [facility] [address], [place] [address]Fdnw Absolute0.8 E9/LNormal0.2-1.0[facility] Comment on above:Performed By: #### [id number] #### [facility] [address], [place] [address]Jxxthvdsr/100 WBC (Bld)9.9 %Normal4.0-14.0[facility] HospitalComment on above:Performed By: #### [id number] #### [facility] [address], [place] [address]Pscrov Absolute6.5 E9/LNormal2.0-7.5FOhioHealth Riverside Methodist Hospital Comment on above:Performed By: #### [id number] #### [facility] [address], [place] [address]Lmynra Auto80.0 %High36.0-75.0[facility] Comment on above:Performed By: #### [id number] #### [facility] [address], [place] [address]Mgsguojg733.0 E9/YRenkud997.0-500.0[facility] Comment on above:Performed By: #### [id number] #### [facility] [address], [place] [address]Cpretooe mean volume (Bld) [Entitic vol]9.3 fLNormal6.4-10.8 [facility] HospitalComment on above:Performed By: #### [id number] #### [facility] [address], [place] [address]EHL3.0 E12/LLow4.3-5.9Fisher Nando Medical CenterComment on above:Performed By: #### [id number] #### [facility] [address], [place] [address]VOD5.1 E9/LNormal4.0-11.0Fisher R [facility] Trauma CenterComment on above:Result Comment: Peripheral smear review performed.Performed By: #### [id number] #### [facility] [address], [place] [address]ZFRYLPPGBIsuxvec By: SYSTEM SYSTEM on 24-75-4658Dlpvefp [Moles/Vol]1.5 mmol/LNormal0.5 - 2.2 mmol/LRemisol ChemProcalcitonin0.06 ng/mL Normal0.00 - 0.50 ng/mLRemisol ChemComment on above:Interpretive Data: <0.5 ng/mL Low risk of severe sepsis [...] to retest PCT within 6 to 24 hours.CHEMISTRYOrdered By: Summer Mcguire on 60-31-8983Eqrbrhvvjro peptide B (Bld) [Mass/Vol]512 pg/mLHigh5 - 80 pg/mLCARNEGIE TRI-COUNT[facility] [place] HemeManSSCHEMISTRYOrdered By: Samir Naidu on 00-98-1781Eamtabyhx [Mass/Vol]2.2 mg/dLNormal1.3 - 2.4 mg/dLRemisol ChemTroponin HS18.30 pg/nVSxuqxd76.90 - 38.40 pg/mLRemisol ChemComment on above:Interpretive Data: The 95% CI (Confidence Interval) PPV (Positive Predictive Value) for myocardial infarction in females is 38 pg/mL, in males 51 pg/mL. The results should be used in conjunction with clinical conditions of myocardial infarction. (Access High Sensitivity Troponin I Instructions For Use, Roxane [place], June 2018)COAGULATIONOrdered By: Summer Mcguire on 96-82-8586dRDA Coag (PPP) [Time]33.3 gPsjfzg77.1 - 36.5 second(s)[facility] [place] Auto CoagComment on above: Interpretive Data: Parameter 15 days - 4 weeks 1 - [...] the same coagulation reagent and instrumentation as [facility] [place]. Currently there are no coagulation studies available worldwide for children to 14 days, andno normal ranges. Heparin therapeutic range (represented by Anti-Factor Xa activity of 0.2 - 0.4 U/mL) corresponds to PTT of 56.6 - 109.0 sec.INR Coag (PPP) [Relative time]0.98 {INR}Invalid Interpretation CodeCARNEGIE TRI-COUNT[facility] [place] Auto CoagComment on above:Interpretive Data: INR results are specifically intended to assess patients stabilized on long-term Anticoagulation therapy suggested INR s Less Intensive Anticoagulation 2.0 3.0 Conventional Range 3.0 4.5PT Coag (PPP) [Time]11.0 sNormal9.4 - 12.5 second(s) [facility] [place] Auto CoagComment on above:Interpretive Data: 15 days - 4 weeks 1 - [...] the same coagulation reagent and instrumentation as [facility] [place]. Currently there are no coagulation studies available worldwide for children to 14 days, andno normal ranges.CT Chest w/o Contraston [id number] Chest w/o ContrastExam Date/Time: 04/14/2025 19:05 EDT Reason for Exam: [...] Yoel Rodriguez DO Transcribed by: MARII Technologist: [facility] CenterCT Head or Brain w/o Contraston [id number] Head or Brain w/o ContrastExam Date/Time: 04/14/2025 17:02 EDT Reason for Exam: [...] Yoel Rodriguez DO Transcribed by: MARII Technologist: KoFormerly [facility]in[facility] Head [id number] HeadExam Date/Time: 04/14/2025 17:33 EDT Reason for Exam: NEURO DEFICIT, ACUTE, STROKE SUSPECTED;Other (please specify) Report Please see CTA neck report. Ordering Provider: Rivas Griggs FINAL REPORT Dictated: 04/14/2025 5:55 pm Yoel Rodriguez DO Signed (Electronic Signature): 04/14/2025 5:55 pm Signed by: Yoel Rodriguez DO Transcribed by: MARII Technologist: ZiyadCleveland Clinic Children's [facility] for Rehabilitation Neck [id number] NeckExam Date/Time: 04/14/2025 17:33 EDT Reason for Exam: [...] obtained from the thoracic inlet through the nikolai of [place] after administration of intravenous contrast. [...] Yoel Rodriguez DO Transcribed by: MARII Technologist: ZiyadCleveland Clinic Fairview HospitalCapillary Glucose POCon 00-09-8642Pnljyhm [Mass/Vol]261 mg/zDQfct59-08WmknodCleveland Clinic Fairview HospitalComment on above:Performed By: #### [id number] #### [facility] [address], [place] [address]WX Clinical Summaryon 87-05-1178MJ Clinical SummaryED Clinical Summary [address] [address] ED Clinical Summary Person Information Name: NADIR BETH [place] Age: 85 Years : 1940 Sex: Male Language: Bruneian PCP: Van Youssef MD Marital Status: Visit Id: Visit Reason: Altered mental status; Headache; Potential stroke; stroke Speciality: Acuity: 2 Enc Type: Inpatient Med Service: Medical Arrival: 04/14/2025 16:53:36 Discharge: LOS: 000 03:59 Checkin: 04/14/2025 16:53:36 Checkout: 04/14/2025 20:52:18 Dispo Type: Admitted as IP to this [facility] EVENTS: Event Name Event Status [...] 19:37:19 Pending Labs Request 04/14/2025 19:50:50 ADDRESS: [address] [place] [id number] PHYS DOC NOTES: Addendum by Oleg Doll DO on April 14, 2025 19:50:02 EDT MEDICAL INFORMATION: Prescriptions Given: Medications to Continue with No Changes Other Medications acetaminophen-hydrocodone (Phoenix 325 mg-5 mg oral tablet) 1 Tablets By Mouth every 6 hours. Take q6hrs as needed for pain.. Refills: 0. acyclovir 400 Milligram By Mouth 2 times a day. apixaban (Eliquis) 2.5 Milligram By Mouth 2 times a day. aspirin 81 Milligram By Mouth every day. betamethasone-clotrimazole topical (betamethasone-clotrimazole Top 0.05%-1% Crm 15 gram) budesonide-formoterol (Symbicort) 80-4.5 mcg/actuation Inhalation 2 times a day. ciprofloxacin (Cipro 500 mg Tab) 1 Tablets By Mouth 2 times a day. Start 1 day prior to procedure..Refills: 0. clonidine 0.1 Milligram By Mouth 2 times a day. diazepam (Valium 10 mg Tab) 1 Tablets By Mouth Once. take one hour prior to the procedure.. Refills: 0. dicyclomine 10 Milligram By Mouth 2 times a day. empagliflozin (Jardiance 10 mg oral tablet) 1 Tablets By Mouth once a day (in the morn (more content not included)...NormalFisher Elko Medical CenterED Note-Physicianon 01-25-1381FF Note-PhysicianED Note-Physician Basic Information Time Seen: Rivas Griggs M.D. 04/14/2025 17:02 Chief Complaint pt [facility] via [facility]t [facility]. family states pt complains [...] gave him couple tablets which she states t hey were for headache and she does not know what they are exactly where and his speech was slurred.She called 911. She states he ambulated with [...] and Complexity of Problems Differential Diagnosis: [] [facility] Data External documents reviewed: [] My EKG interpretation: [] My CT interpretation: [] My X-ray interpretation: [] My Ultrasound interpretation: [] Decision rules/scores evaluated: [] Discussed with: Dr Narayan Treatment and Disposition ED Course: The patient presented with strokelike symptoms. He does have right- sided deficit with the facial droop and aphasia and slurred speech. The NIH stroke scale score is 9. The patient is not acandidate for tenecteplase because he is on Xarelto. The CT of the brain shows density on the left caudate nucleus consistent with subacute ischemic stroke. The EKG shows atrial fibrillation. The chest x-ray shows right upper lung nodule with a right pleural effusion and right basilar mass and the radiologist is reading consistent with congestive heart failure. BN peptide is elevated. Less likelypneumonia. Procalcitonin is normal. Patient is afebrile. White [...] right upper lung mass. At 1 point hisblood pressure increased to 212/122 and shortly repeat after that improved to 207/107. recommends treating blood pressure if systolic is more than 220. Because his diastolic is 122 we wer e going to order labetalol however blood pressure improved on its own. The care of the patient was transitioned to Dr. Charles upon shift change to follow-up with CT results of the chest and admissionto the hospital. Shared decision making: Patient, patient's and his daughter Code status: [] Critical Care Time: 40 minutes, critical care time is separate from any procedures that are performed. The following was considered in the determination of critical care but not limited to the level medical decision-making, intensive cardiac and/ (more content not included)...[facility] Medical CenterComment on above:Result Comment: Electronically Signed By: Oleg Doll DO.mary\Date and Time Signed: 04/14/25 19:50 EDTED Patient Education Note on 37-03-3106OU Patient Education NoteED Patient Education NoteNormKettering Health Miamisburg CenterED Patient Summaryon 14-74-8377ZQ Patient SummaryED Patient Summary [place] [id number] Patient Discharge Instructions Person Information Name: NADIR BETH Age: 85 Years Arrival Date: 04/14/2025 16:53:36 Discharge Diagnosis: 1:CVA (cerebrovascular accident); 2:Congestive heart failure; 3:Chronic kidneydisease; 4:Hypertensive urgency; Pericardial effusion; Pleural effusion Primary Care Physician: Van Youssef MD Provider Information Primary Provider: Rivas Griggs M.D. Advanced Branch Or Department Chief Librarian:None The exam and treatment you received in the Emergency Department were for an urgent problem and are not intended as complete care. It is important that you follow up with a doctor, nurse practitioner,or physician???s fws faculty assistant for ongoing care. If your symptoms become worse or you do not improve asexpected and you are unable to reach your [...] opioids can be used to help relieve limhpvga-qg-lgcuzg pain and are often prescribed following a [...] guidance from the Food and Drug Administration (www.fda.gov/Drugs/ResourcesForYou). ??? Visit www.cdc.gov/drugoverdose to learn about the risks of opioids abuse and overdose. ??? If you believe you may be struggling with addiction, tell your health child care coordinator and askfor guidance or call [facility] (more content not included)... NormalCleveland Clinic Fairview HospitalLactic Acidon 38-47-3481Dddfhf Acid Lvl1.5 mmol/LNormal0.5-2.2FOhioHealth Riverside Methodist HospitalComment on above:Performed By: #### [id number] #### [facility] [address], [place] [address]Usmwtsvmkqw 82-73-2755Dfsfmkskn [Mass/Vol]2.2 mg/dLNormal 1.3-2.4FOhioHealth Riverside Methodist HospitalComment on above:Performed By: #### [id number] #### [facility] [address], [place] [address]Rf Panel InformationOrdered By: ANGPROCESSSERVER MICROBIOLOGY on 73-53-8612Utgcj Culture CharcoalNo growth at 4 days. Final to follow at 7 days.[facility] Medical CenterBlood Culture CharcoalNo growth at 4 days. Final to follow at 7 days.[facility] Medical CenterPT & PTTon 84-74-5693FTT Coag (PPP) [Relative time]0.98 {INR}Invalid Interpretation [facility] HospitalComment on above:Result Comment: INR results are specifically intended to assess patients stabilized on long-term Anticoagulation therapy suggested INR???s ???Less Intensive Anticoagulation??? 2.0 ??? 3.0 Conventional Range 3.0 ??? 4.5Performed By: #### [id number] #### [facility] [address], [place] [address]UG75.0 second(s)Normal9.4-12.5FOhioHealth Riverside Methodist Hospital Comment on above:Result Comment: 15 days - 4 weeks 1 - [...] the same coagulation reagent and instrumentation as [facility] [place]. Currently there are no coagulation studies available worldwide for children to 14 days, andno normal ranges.Performed By: #### [id number] #### [facility] [address], [place] [address]YDL26.3 second(s)Ldnpcf65.1-36.5FOhioHealth Riverside Methodist Hospital Comment on above:Result Comment: Parameter 15 days - 4 weeks 1 - [...] the same coagulation reagent and instrumentation as [facility] [place]. Currently there are no coagulation studies available worldwide for children to 14 days, andno normal ranges. Heparin therapeutic range (represented by Anti-Factor Xa activity of 0.2 - 0.4 U/mL) corresponds to PTT of 56.6 - 109.0 sec.Performed By: #### [id number] #### [facility] [address], [place] [address]Ihl-Yzgjpab Noteon 39-24-4491Sna-Arrival NotePre-Arrival Note Pre-Arrival Summary Name: opal Current Date: 04/14/2025 16:54:02 EDT Gender: Male Date of : Age: 85 Pre-Arrival Type: EMS ETA: 04/14/2025 17:17:00 EDT Primary Care Physician: Presenting Problem: Pre-Arrival User: Abdoul Mcmillan Referring Source: Location: [place] Completion Date/Time: 04/14/2025 16:47:00 [facility] Emergency Department Pre-Hospital Report Form Vital Signs: Pre-Hospital Report: Treatment in Route: Response to Treatment: Misc. Issues:NormalCleveland Clinic Fairview HospitalProcalcitoninon 04-14-2025 Procalcitonin.06 ng/mLNormal.00-.50C[facility] HospitalComment on above: Result Comment: <0.5 ng/mL Low [...] to retest PCT within 6 to 24 hours.Performed By: #### [id number] #### [facility] [address], [place] [address]Pwcewnle 0 Hr.on 64-33-0008Vwbapjgm HS18.30 pg/mLNormal 15.90-38.40C[facility] Clinic [facility]view HospitalComment on above:Result Comment: The 95% CI (Confidence Interval) PPV (Positive Predictive Value) for myocardial infa rction in females is 38 pg/mL, in males 51 pg/mL. The results should be used in conjunction with clinical conditions of myocardial infarction. (Access High Sensitivity Troponin I Instructions For Use, Roxane [place], June 2018)Performed By: #### [id number] #### [facility] [address], [place] [address]FW with Cult Rflxon [id number] Spec DescClean CatchNormal [facility] HospitalComment on above:Performed By: #### [id number] #### [facility] [address], [place] [address]YI Chest Single Viewon [id number] Chest Single ViewExam Date/Time: 04/14/2025 17:32 EDT Reason for Exam: [...] Yoel Rodriguez DO Transcribed by: MARII Technologist: CNILAormalCleveland Clinic Fairview HospitaleGFRon 21-09-6632uAGG63 mL/min/1.73 m2Low>=59[facility] HospitalComment on above:Performed By: #### [id number] #### [facility] [address], [place] [address]Rneyzm Visiton 03-74-0004Jttuom-up [id number] Nadir Beth 1940 M Date Provider Department Center 03/12/2025 [facility] Family History Problem Relation Age of Onset Coronary artery disease Father Family Status - Relation Status Age at Father Level of Service:76809 [facility] OFFICE/OUTPATIENT ESTABLISHED HIGH MDM 40 [facility] HospitalHPon 66-19-9265ED Attestation signed by Albaro Faulkner MD at 03/01/2025 6:06 PM I personally saw and examined the patient on the same date of service as resident/fellow Dr chilel. I discussed the findings and therapeutic plan with the resident/fellow Dr chilel. I agree with the documentation, except for any edits/updates below. Teaching Physician's Revisions: None Albaro Faulkner MD, [facility] History Of Present Illness Nadir Beth is a 85 y.o. male presenting with aortic stoneosis for MARK. Past Medical History He has a past medical history of Atrial fibrillation ([facility]), CHF (congestive heart failure) ([facility]), Chronic kidney disease, COPD (chronic obstructive pulmonary disease) ([facility]), Coronary artery disease, Diabetes mellitus ([facility]), Heart valve disease, Hypertension, Pericardial effusion, and [...] Father Allergies Iodinated contrast media, Nitroglycerin, and Rylnlug-edv-hex reductase inhibitors Medications (Not in a hospital [...] Negative for adenopathy. Does not bruise/bleed easily. Psychiatric/Behavioral: Negative for agitation and behavioral problems. Last [...] Imaging Results Transesophageal echo (MARK) Addendum: [facility] Heart Station [address] [place], [place] [id number] (fax) Transesophageal Echocardiogram-[facility] Name: NADIR BETH Study Date: 08/31/2023 02:31 PM B/P: 190 mmHg/86 mmHg HR: 92 bpm Date of : 1940 Location: [facility] Height: 71 in. Age: 83 year(s) Patient Room: Weight: 210 lb. Gender: Male Patient Status: OutPt BSA: 2.15 m2 Indication: Aortic Valve Stenosis Examination: MARK/Limited Doppler/CFI Image Quality: Excellent Patient Consent: Informed, written consent was obtained for the procedure Exam Location: A MARK was performed in the [facility] without complications Anesthesia Pharyngeal anesthesia with viscous Lidocaine Conclusions Left Ventricle: Global left ventricular systolic function is hyperdynamic. EF range is estimated at 65 % -70 %. No regional wall motion abnormality. Right Ventricle: The right ventricle appears normal in size. Normal right kari (more content not included)...NormalUnSumma HealthNURSNOTEon 43-65-4305PEWYQUHEOuwnnuy swallow study completed and passed. RN educated pt on [...] wheeled off of unit with all of belongings.NormalUnSumma HealthTelephoneon [id number] Nadir Beth 1940 M Date Provider Department Center 02/21/2025 RABIA KONG [facility] [place] HeartVAS Family History Problem Relation Age of Onset Coronary artery disease Father Family Status - Relation Status Age at FatherNormalUniversKettering Memorial HospitalFollow-Upon [id number] [id number] Nadir Beth 1940 M Date Provider Department Center 01/03/2025 [facility]UTHIE [facility] Comprehensiv Family History Problem Relation Age of Onset Coronary artery disease Father Family Status - Relation Status Age at Father Level of Service:78738 [place] OFFICE/OUTPATIENT ESTABLISHED MOD MDM 30 MIN (GC) Reason for Visit and Comments: Follow-up [[id number]][facility] HospitalOffice Visiton [id number]-[id number] Nadir Beth 1940 M Date Provider Department Center 12/14/2024 ParrisCLARIBEL CISNEROS [facility] Alberto Beckett Family History Problem Relation Age of Onset Coronary artery disease Father Family Status - Relation Status Age at Father Level of Service:68007 [place] OFFICE/OUTPATIENT ESTABLISHED MOD MDM 30 MINMarion HospitalAmbulatory Visit Summaryon 12-04-2024 Ambulatory Visit SummaryAmbulatory Visit Summary NADIR BETH :1940 Visit Date:12/04/2024 Ambulatory Visit Instructions Your Diagnosis BPH with urinary obstruction Gross hematuria Incomplete bladder emptying OAB (overactive bladder) Post-void dribbling Acquired buried penis Balanitis Anticoagulated Other obstructive and reflux uropathy Your Care Team Attending Physician - MARQUIS LOUISE MD Primary Care Physician - Van Youssef MD Referring Physician - MARQUIS LOUISE MD This Is Your Medications List acetaminophen-hydrocodone (Phoenix 325 mg-5 mg oral tablet) ciprofloxacin (Cipro 500 mg Tab) diazepam (Valium 10 mg Tab) Contact prescribing physician if questions or concerns NIFEdipine acyclovir apixaban (Eliquis) aspirin betamethasone-clotrimazole topical (betamethasone-clotrimazole Top 0.05%-1% Crm 15 gram) budesonide-formoterol (Symbicort) [...] LU OLMEDO PA-C Where: [facility] [address] [place] [address]- You Need to Schedule the Following Appointments Follow Up with ADRIAN GUSTAFSON, ADAN CHO When: In 6 months Comments: Can see DIAMANTE, w/PVR Where: Medications What How Much When Why Instructions Unchanged acetaminophen-hydrocodone (Phoenix 325 mg-5 mg oral tablet) 1 Tablets [...] times a day Contact prescribing physician if questionsor concerns Unchanged apixaban (Eliquis) 2.5 Milligram By Mouth 2 times a day Contact prescribing physician if questions or concerns Unchanged aspirin 81 Milligram By Mouth Every day Contact prescribing physician if questions or concerns Unchanged betamethasone-clotrimazole topical (betamethasone-clotrimazole Top 0.05%-1% Crm 15 gram) Contact prescribing physician if questions or concerns Unchanged budesonide-formoterol (Symbicort) 80-4.5 mcg/actuation Inhalation 2 times a day Contact prescribing physician if questions or concerns Unchanged clonidine 0.1 Milligram By Mouth 2 times a day Contact prescribing physician if questionsor concerns Unchanged dicyclomine 10 Milligram By Mouth [...] a day Contact prescribing physician if questions orconcerns Unchanged furosemide (Lasix 80 mg Tab) By [...] questions or concerns Uncha (more content not included)...[facility] CenterUrology Office/Clinic Noteon [id number] Office/Clinic NoteUrology Office/Clinic Note Chief Complaint 6-8 wk f/u [...] Moderate trabeculations with no bladder stone or tumorsnoted. Prostate volume 64.1 cc. S/p UroLift 6 implants 10/23/24. Palomares placed. Palomares removed 10/25/24. Pt's daughter called 10/23/24 stating pt had blood coming out of his penis. Pt presented to [facility] ER 10/28/24 due to clot retention. Seen in consult by Dr. Singh. 24 Fr three-way palomares placed. CBI initiated. Palomares was removed on 01/07/24. Prior IPSS 11(23). Taking Flomax 0.4mg qd which he has been on for years. Pt states that the biggest improvement was his frequency, his stream is spraying at times, has noticed that the stream is a little bit better than what it was before. Pt states that he does have someleaking, can control it, has post void dribbling [...] 7. 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) Pt presented to [facility] ER 08/06/24 with redness on the [...] penis. -Cont symptomatic monitoring 8. Anticoagulated (Z79.01: group home (current) use of anticoagulants) Taking Eliquis, has restarted since UroLift. Hx of cardioversion. Increased risk for bleeding. Elevated r (more content not included)...[facility] CenterComment on above:Result Comment: Electronically Signed By: ADRIAN GUSTAFSON, MARQUIS\.br\Date and Time Signed: 12/04/24 09:21 EST\.br\Electronically Co-Signed By: Deepthi Kevin\.br\Date and Time Co- Signed: 12/04/24 09:11 ESTAmbulatory Visit Summaryon [id number] Visit SummaryAmbulatory Visit Summary NADIR BETH :1940 Visit Date:11/06/2024 Ambulatory Visit Instructions Your Care Team Attending Physician - SAMANTHA GUSTAFSON, Mejia Zimmer Primary Care Physician - Van Youssef MD This Is Your Medications List NIFEdipine acetaminophen-hydrocodone (Phoenix 325 mg-5 mg oral tablet) acyclovir apixaban (Eliquis) aspirin betamethasone-clotrimazole topical (betamethasone-clotrimazole Top 0.05%-1% Crm 15 gram) budesonide-formoterol (Symbicort) [...] MARQUIS LOUISE MD Where: [facility] [place] [facility] [address], [address] [place] [address]- Medications What How Much When Why Instructions Unchanged acetaminophen-hydrocodone (Phoenix 325 mg-5 mg oral tablet) 1 Tablets By Mouth Every 6 hours Take q6hrs as needed for pain. Unchanged acyclovir 400 Milligram By Mouth 2 times a day Unchanged apixaban (Eliquis) 2.5 Milligram By Mouth 2 times a day Unchanged aspirin 81 Milligram By Mouth Every day Unchanged betamethasone-clotrimazole topical (betamethasone-clotrimazole Top 0.05%-1% Crm 15 gram) Unchanged budesonide-formoterol [...] receive a survey v (more content not included)...[facility] CenterAmbulatory Visit Summaryon [id number] Visit Summary Ambulatory Visit Summary ZOEYNADIR SULLIVAN Joy :1940 Visit Date:11/02/2024 Ambulatory Visit Instructions Your Diagnosis BPH with urinary obstruction Gross hematuria Incomplete bladder emptying OAB (overactive bladder) Acquired buried penis Balanitis Anticoagulated Your Care Team Attending Physician - MARQUIS LOUISE MD Primary Care Physician - Van Youssef MD This Is Your Medications List acetaminophen-hydrocodone (Phoenix 325 mg-5 mg oral tablet) ciprofloxacin (Cipro 500 mg Tab) diazepam (Valium 10 mg Tab) Contact prescribing physician if questions or concerns NIFEdipine acyclovir apixaban (Eliquis) aspirin betamethasone-clotrimazole topical (betamethasone-clotrimazole Top 0.05%-1% Crm 15 gram) budesonide-formoterol (Symbicort) [...] AM EST With: Where: [facility] [address] [facility] [place] [address] [place] [address]- Wednesday 8:40 AM EST With: MARQUIS LOUISE MD Where: [facility] [address], [address] [place] [address]- You Need to Schedule the Following Appointments Follow Up with MARQUIS LOUISE MD, URL When: Where: Medications What How Much When Why Instructions Unchanged acetaminophen-hydrocodone (Phoenix 325 mg-5 mg oral tablet) 1 Tablets [...] times a day Contact prescribing physician if questionsor concerns Unchanged apixaban (Eliquis) 2.5 Milligram By Mouth 2 times a day Contact prescribing physician if questions or concerns Unchanged aspirin 81 Milligram By Mouth Every day Contact prescribing physician if questions or concerns Unchanged betamethasone-clotrimazole topical (betamethasone-clotrimazole Top 0.05%-1% Crm 15 gram) Contact prescribing physician if questions or concerns Unchanged budesonide-formoterol (Symbicort) 80-4.5 mcg/actuation Inhalation 2 times a day Contact prescribing physician if questions or concerns Unchanged clonidine 0.1 Milligram By Mouth 2 times a day Contact prescribing physician if questionsor concerns Unchanged dicyclomine 10 Milligram By Mouth [...] a day Contact prescribing physician if questions orconcerns Unchanged furosemide (Lasix 80 mg Tab) By [...] if questions or co (more content not included)...NormalC[facility] HospitalUrology Office/Clinic Noteon [id number] Office/Clinic Note Urology Office/Clinic Note Chief Complaint er f/u HPI Staff 84 year old male here for [facility] ER F/U, difficulty urinating. Bladder scan showed approximately 800 cc of urine. Palomares was placed Previous DX: BPH w/LUTS, incomplete bladder emptying, balanitis, acquired buried penis, OAB and anticoagulated S/P UroLift 10/23/24 and Cysto/TRUS 09/25/24 Pt presents with daughter and . Currently on cefdinr. No noticeable blood in cath since leavingthe hospital. Denies any pain or burning. History [...] with voice recognition artificial intelligence software, specifically Ag[employer], [employer] and or [employer]. Substitutions may have occurred due to the [...] Moderate trabeculations with no bladder stone or tumorsnoted. Prostate volume 64.1 cc. S/p UroLift 6 implants 10/23/24. Palomares placed. Palomares removed 10/25/24. Pt's daughter called 10/23/24 stating pt had blood coming out of his penis. Pt presented to [facility] ER 10/28/24 due to clot retention. [...] removal. Recommended leaving Palomares in place until Wednesday.Pt agrees with plan. -Nurse visit 11/06 for [...] 6. 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) Pt presented to [facility] ER 08/06/24 with redness on the [...] penis. -Cont symptomatic monitoring 7. Anticoagulated (Z79.01: intermediate card tender (current) use of anticoagulants) Taking Eliquis, has restarted since UroLift. Hx of cardioversion. Increased risk for bleeding. Elevated risk for periop complications. Patient underwent a UroLift procedure approximately a week and a half ago. Unfortunately, he developed gross hematuria with clot retention that required hand irrigation with a three-way Palomares catheter. He presents today for an (more content not included)...[facility] CenterComment on above:Result Comment: Electronically Signed By: MARQUIS LOUISE MD\.br\Date and Time Signed: 11/02/24 08:40 EST\.br\Electronically Co-Signed By: Roxy Gatica\.br\Date and Time Co-Signed: 11/02/24 08:27 EST\.br\Electronically Co-Signed By: Roxy Gatica\.br\Date and Time Co-Signed:11/02/24 08:29 EST Ambulatory Visit Summaryon [id number] Visit SummaryAmbulatory Visit Summary NADIR BETH :1940 Visit Date:10/25/2024 Ambulatory Visit Instructions Your Care Team Attending Physician - MARQUIS LOUISE MD Primary Care Physician - Van Youssef MD Referring Physician - MARQUIS LOUISE MD This Is Your Medications List NIFEdipine acetaminophen-hydrocodone (Phoenix 325 mg-5 mg oral tablet) acyclovir apixaban (Eliquis) aspirin betamethasone-clotrimazole topical (betamethasone-clotrimazole Top 0.05%-1% Crm 15 gram) budesonide-formoterol (Symbicort) [...] LOUISE MD Where: [facility] [address], [address] [place] [address]- Medications What How Much When Why Instructions Unchanged acetaminophen-hydrocodone (Phoenix 325 mg-5 mg oral tablet) 1 Tablets By Mouth Every 6 hours Take q6hrs as needed for pain. Unchanged acyclovir 400 Milligram By Mouth 2 times a day Unchanged apixaban (Eliquis) 2.5 Milligram By Mouth 2 times a day Unchanged aspirin 81 Milligram By Mouth Every day Unchanged betamethasone-clotrimazole topical (betamethasone-clotrimazole Top 0.05%-1% Crm 15 gram) Unchanged budesonide-formoterol [...] Incomplete bladder emptying Naus (more content not included)...[facility] CenterInpatient Patient Summaryon [id number] Patient SummaryInpatient Patient Summary [address] [address] Clinical Summary Person Information Name: NADIR BETH Age: 84 Years : 1940 Sex: Male PCP: Van Youssef MD Marital Status: Race: White Ethnicity: Non- or Language: Bruneian Visit Id: Visit Reason: BPH WITH URINARY OBSTRUCTION, INCOMPLETE BLADDER EMPTYING Speciality: Acuity: Enc Type: Outpatient Med Service: Surgery Arrival: 10/23/2024 13:48:15 Discharge: Dispo Type: Address: [address] [place] [phone] Provider Notes: Diagnosis: Problems Active BPH with [...] Immunizations Documented This Visit Final Med List: acetaminophen-hydrocodone (Phoenix 325 mg-5 mg oral tablet) 1 Tablets By Mouth every 6 hours. Take q6hrs as needed for pain.. Refills: 0. acyclovir 400 Milligram By Mouth 2 times a day. apixaban (Eliquis) 2.5 Milligram By Mouth 2 times a day. aspirin 81 Milligram By Mouth every day. betamethasone-clotrimazole topical (betamethasone-clotrimazole Top 0.05%-1% Crm 15 gram) budesonide-formoterol (Symbicort) 80-4.5 mcg/actuation Inhalation 2 times a day. ciprofloxacin (Cipro 500 mg Tab) 1 Tablets By Mouth 2 times a day. Start 1 day prior to procedure..Refills: 0. clonidine 0.1 Milligram By Mouth 2 [...] Follow up: Patient Education Information: Benign Prostatic HyperplasiaUniversity Hospitals Beachwood Medical CenterMain OR Intraoperative Recordon [id number] OR Intraoperative RecordMain OR Intraoperative Record IntraOp Document Type FTURO Summary Primary Physician: MARQUIS LOUISE MD Finalized Date/Time: 10/23/24 15:03:19 Pt. Name: KIRITNADIRO.B./Sex: 1940 Male Med Rec #: [id number] Physician: MARQUIS LOUISE MD Financial #: [id number] Pt. Type: O Room/Bed: / Admit/Disch: 10/23/24 [...] 3 Case Attendee ADRIAN GUSTAFSON, Oliva Goel TC OPERATOR, Ana CHO Role Performed Surgeon - Primary Courtroom Deputy - Primary Scrub - Primary Time In [...] Implant Implant Identification Description UROLIFT Lot Number [id number] [employer] UROLIFT Catalog ???# [id number]-[id number] Expiration Date 11/30/25 [...] 10/23/24 15:03 Oliva Goel (more content not included)...[facility] CenterMain OR Preoperative Recordon [id number] OR Preoperative RecordMain OR Preoperative Record Holding Area Document Type FTURO Summary Primary Physician: MARQUIS LOUISE MD Finalized Date/Time: 10/23/24 14:17:30 Pt. Name: NADIR BETH/Sex: 1940 Male Med Rec #: [id number] Physician: MARQUIS LOUISE MD Financial #: [id number] Pt. Type: O Room/Bed: / Admit/Disch: 10/23/24 [...] or her perioperative plan of care The patient'sright to privacy is maintained Surgery Checklist FTURO Entry 1 Patient Birthday, ID Band Procedure Surgical Consent, With Identification: Check, Patient Verification: Patient Participation NPO after Midnight: n/a Personal Items: Glasses Limitations: up ad jean pierre Complaints of Pain: No Skin Integrity Intact, Beulah, Warm, & Dry Vitals - EU Blood Pressure 152/78 Pulse 84 bpm Respirations 18 br/min SPO2 90 % Additional None RN Reviewed Yes Specimens Collected Last Modified By: Oliva Goel 10/23/24 14:17:29 Finalized By: Oliva Goel Document Signatures Signed By: Preeti Kaur LPN 10/23/24 14:05 Oliva Goel 10/23/24 14:17NoCincinnati VA Medical CenterOperative Reporton [id number] ReportOperative Report Patient: NADIR BETH Age: 84 years Sex: Male : 1940 Associated Diagnoses: None Author: MARQUIS LOUISE MD Procedure SURGEON: Marquis Louise MD PREOPERATIVE DIAGNOSIS: BPH POSTOPERATIVE DIAGNOSIS: Same PROCEDURE: Cystoscopy, Urolift Implant FINDINGS: Bilobar Hyperplasia of prostate with urolift clips placed to create wide open channel???6total clips ANESTHESIA: Local INTRAVENOUS FLUIDS: None ESTIMATED BLOOD LOSS: Minimal TUBES AND DRAINS: 18 Fr palomares with 10cc in balloon SPECIMENS: None COMPLICATIONS: None INDICATIONS FOR PROCEDURE: Patient is a 84-year-old male with IPSS score of 23 presented for the aforementioned procedure. H&P was reviewed, informed consent was obtained, patient understood risk, benefits, alternatives tothe procedure and wished to proceed. OPERATIVE DETAIL: [...] to 8 weeks with IPSS at that timeUniversity Hospitals Beachwood Medical CenterComment on above:Result Comment: Electronically Signed By: MARQUIS LOUISE MD\.br\Date and Time Signed: 10/23/24 15:06 ESTOutpatient Surgery Discharge Instructionon [id number] Surgery Discharge Instruction Outpatient Surgery Discharge Instruction [place] [id number] Patient Discharge Instructions PERSON INFORMATION Name: NADIR [...] a small amount of (more content not included)...[facility] CenterAmbulatory Visit Summaryon [id number] Visit SummaryAmbulatory Visit Summary NADIR BETH :1940 Visit Date:10/02/2024 Ambulatory Visit Instructions Your Diagnosis BPH with urinary obstruction Incomplete bladder emptying Balanitis Acquired buried penis OAB (overactive bladder) Anticoagulated Your Care Team Attending Physician - ADRIAN GUSTAFSON, MARQUIS Primary Care Physician - Van Youssef MD Referring Physician - MARQUIS LOUISE MD This Is Your Medications List NIFEdipine acyclovir apixaban (Eliquis) aspirin betamethasone-clotrimazole topical (betamethasone-clotrimazole Top 0.05%-1% Crm 15 gram) budesonide-formoterol (Symbicort) [...] 81 Milligram By Mouth Every day Unchanged betamethasone-clotrimazole topical (betamethasone-clotrimazole Top 0.05%-1% Crm 15 gram) Unchanged budesonide-formoterol [...] stools Patient Survey Yo (more content not included)...[facility] CenterAmbulatory Visit SummaryAmbulatory Visit Summary NADIR BETH :1940 Visit Date:10/02/2024 Ambulatory Visit Instructions Your Diagnosis BPH with urinary obstruction Incomplete bladder emptying Balanitis Acquired buried penis OAB (overactive bladder) Anticoagulated Your Care Team Attending Physician - ADRIAN GUSTAFSON, MARQUIS Primary Care Physician - Van Youssef MD Referring Physician - MARQUIS LOUISE MD This Is Your Medications List NIFEdipine acyclovir apixaban (Eliquis) aspirin betamethasone-clotrimazole topical (betamethasone-clotrimazole Top 0.05%-1% Crm 15 gram) budesonide-formoterol (Symbicort) [...] 81 Milligram By Mouth Every day Unchanged betamethasone-clotrimazole topical (betamethasone-clotrimazole Top 0.05%-1% Crm 15 gram) Unchanged budesonide-formoterol [...] choosing us for (more content not included)... [facility] CenterUrology Office/Clinic Noteon [id number] Office/Clinic NoteUrology Office/Clinic Note Chief Complaint 1-2 week f/u [...] with voice recognition artificial intelligence software, specifically Agilv[employer], [employer] and or [employer]. Substitutions may have occurred due to the [...] Moderate trabeculations with no bladder stone or tumorsnoted. Prostate volume 64.1 cc. Voiding every 30 minutes and getting up multiple times per night. Given cysto findings, prostate volume and pt's age a UroLift is recommended. Discussed risks and benefits of procedure. Pt wishes to proceed. -Cipro 500mg bid start the day prior, Phoenix 325-5mg #2 q6hrs as needed for pain, [...] 3. 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) Pt presented to [facility] ER 08/06/24 with redness on the [...] and Lasix. -Dm control 6. Anticoagulated (Z79.01: group home (current) use of anticoagulants) Taking Eliquis. Hx of cardioversion. Elevated risk for periop complications. Based on patient's age, multiple medical comorbidities and his prostate size we discussed extensively that he will benefit most likely from a UroLift procedure. He is amenable to (more content not included)...[facility] Medical CenterComment on above:Result Comment: Electronically Signed By: MARQUIS LOUISE MD\.br\Date and Time Signed: 10/02/24 11:43 EST\.br\Electronically Co- Signed By: Roxy Gatica\.br\Date and Time Co-Signed: 10/02/24 11:21 EST\.br\Electronically Co-Signed By: Roxy Gatica\.br\Date and Time Co-Signed:10/02/24 11:22 EST\.br\Electronically Co-Signed By: Roxy Gatica\Date and Time Co-Signed: 10/02/24 11:23 ESTInpatient Patient Summaryon [id number] Patient SummaryInpatient Patient Summary [address] [address] Clinical Summary Person Information Name: NADIR BETH Age: 84 Years : 1940 Sex: Male PCP: Van Youssef MD Marital Status: Race: White Ethnicity: Non- or Language: Bruneian Visit Id: Visit Reason: ENLARGED PROSTATE WITH URINARY OBSTRUCTION, INCOMPLETE BLADDER EMPTYING Speciality: Acuity: Enc Type: Outpatient Med Service: Surgery Arrival: 09/25/2024 11:42:27 Discharge: Dispo Type: Address: [address] [place] [phone] Provider Notes: Diagnosis: Problems Active BPH with [...] aspirin 81 Milligram By Mouth every day. betamethasone-clotrimazole topical (betamethasone-clotrimazole Top 0.05%-1% Crm 15 gram) budesonide-formoterol (Symbicort) [...] MD Follow up: With: Address: When: MARQUIS ROANEELABERNABE [address] [address] [phone] Business (1) Comments: Follow-up in the office in 2 weeks to discuss next plan With: Address: When: [place] [phone] Business (1) Patient Education Information: Benign Prostatic HyperplasiaUniversity Hospitals Beachwood Medical CenterMain OR Intraoperative Recordon [id number] OR Intraoperative RecordMain OR Intraoperative Record IntraOp Document Type FTURO Summary Primary Physician: MARQUIS LOUISE MD Finalized Date/Time: 09/25/24 13:23:58 Pt. Name: BUNNY BETHCONNIE BorjaO.B./Sex: 1940 Male Med Rec #: [id number] Physician: MARQUIS LOUISE MD Financial #: [id number] Pt. Type: O Room/Bed: / Admit/Disch: 09/25/24 [...] C KWABENA Role Performed Surgeon - Primary Courtroom Deputy - Primary Scrub - Primary Time In [...] Oliva Goel 09/25/24 13:23 Oliva Goel 09/25/24 13:23Normal [facility] HospitalMain OR Preoperative Recordon [id number] OR Preoperative RecordMain OR Preoperative Record Holding Area Document Type FTURO Summary Primary Physician: MARQUIS LOUISE MD Finalized Date/Time: 09/25/24 13:04:51 Pt. Name: ZOEYIRANADIR STEPHEN/Sex: 1940 Male Med Rec #: [id number] Physician: MARQUIS LOUISE MD Financial #: [id number] Pt. Type: O Room/Bed: / Admit/Disch: 09/25/24 [...] or her perioperative plan of care The patient'sright to privacy is maintained Surgery Checklist FTURO Entry 1 Patient Birthday, ID Band Procedure Surgical Consent, With Identification: Check, Patient Verification: Patient Participation NPO after Midnight: n/a Personal Items: Glasses Limitations: up ad jean pierre Complaints of Pain: No Skin Integrity Intact, Beulah, Warm, & Dry Vitals - EU Blood Pressure Pulse Respirations SPO2 Additional None RN Reviewed Yes Specimens Collected Last Modified By: Oliva Goel 09/25/24 13:04:50 Finalized By: Oliva Goel Document Signatures Signed By: Preeti Kaur LPN 09/25/24 12:49 Oliva Goel 09/25/24 13:04NoCincinnati VA Medical CenterOperative Reporton [id number] ReportOperative Report Patient: NADIR BETH Age: 84 years [...] discuss next steps Impression and Plan Counseled: Family.[facility] Medical CenterComment on above:Result Comment: Electronically Signed By: MARQUIS LOUISE MD\.br\Date and Time Signed: 09/25/24 13:27 ESTOutpatient Surgery Discharge Instructionon 09-25-2024 Outpatient Surgery Discharge InstructionOutpatient Surgery Discharge Instruction [place] [id number] Patient Discharge Instructions PERSON INFORMATION Name: NADIR [...] Address: When: MARQUIS LOUISE [address] [place] [address] [phone] [employer] (1) Comments: Follow-up in the office in 2 weeks to discuss next plan With: Address: When: MARQUIS LOUISE [address] [place] [address] [phone] [employer] (1) Comment: PATIENT EDUCATION INFORMATION Instructions: Benign [...] procedure uses radio frequen (more content not included)...[facility] Medical CenterNo Panel Informationon [id number] HealthcareAmbulatory Visit Summaryon [id number] Visit SummaryAmbulatory Visit Summary NADIR BETH :1940 Visit Date:08/08/2024 Ambulatory Visit Instructions Your Diagnosis 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 Incomplete bladder emptying OAB (overactive bladder) Anticoagulated Your Care Team Attending Physician - MARQUIS LOUISE MD Primary Care Physician - Van Youssef MD This Is Your Medications List Contact prescribing physician if questions or concerns NIFEdipine acyclovir apixaban (Eliquis) aspirin betamethasone-clotrimazole topical (betamethasone-clotrimazole Top 0.05%-1% Crm 15 gram) budesonide-formoterol (Symbicort) [...] times a day Contact prescribing physician if questionsor concerns Unchanged apixaban (Eliquis) 2.5 Milligram By Mouth 2 times a day Contact prescribing physician if questions or concerns Unchanged aspirin 81 Milligram By Mouth Every day Contact prescribing physician if questions or concerns Unchanged betamethasone-clotrimazole topical (betamethasone-clotrimazole Top 0.05%-1% Crm 15 gram) Contact prescribing physician if questions or concerns Unchanged budesonide-formoterol (Symbicort) 80-4.5 mcg/actuation Inhalation 2 times a day Contact prescribing physician if questions or concerns Unchanged clonidine 0.1 Milligram By Mouth 2 times a day Contact prescribing physician if questionsor concerns Unchanged dicyclomine 10 Milligram By Mouth [...] a day Contact prescribing physician if questions orconcerns Unchanged furosemide (Lasix 80 mg Tab) By [...] times a day Contact prescribing physician if questionsor concerns Unchanged omeprazole 20 Milligram By Mouth 2 times a day Contact prescribing physician if questionsor concerns Unchanged pioglitazone (pioglitazone 30 mg Tab) [...] psyllium (Metamucil 525 mg (more content not included)...[facility] CenterUrology Office/Clinic Noteon [id number] Office/Clinic NoteUrology Office/Clinic Note Chief Complaint follow up to [facility] ER HPI Staff 84 year old male new patient follow up to [facility] 08/06/24 presented due to redness on the shaft of thispenis and frequency of urination, per ER note patient was unable to explain his issue. UA showed noevidence of uti. Was given Lotrisone and Bactroban cream. Patient did report at the ER that for thelast few months his penis as been retracting [...] 1. 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) Pt presented to [facility] ER 08/06/24 with redness on the [...] bladder and urinary channel, (more content not included)...[facility] CenterComment on above:Result Comment: Electronically Signed By: MARQUIS LOUISE MD\.br\Date and Time Signed: 08/08/24 11:05 EDT\.br\Electronically Co-Signed By: Roxy Gatica\.br\Date and Time Co- Signed: 08/08/24 10:46 EDT\.br\Electronically Co-Signed By: Roxy Gatica\.br\Date and Time Co-Signed:08/08/24 10:53 EDTMICRO OTHER TESTSOrdered By: Francisco Bolanos on [id number] WBC LactoferrinNegative (04/15/23 7:00 AM)NormalNegativeFTMC Man SeroCHEMISTRYOrdered By: SYSTEM SYSTEM on 61-50-4378Gdmcwaa [Mass/Vol]3.8 g/dLNormal3.3 - 5.0 gm/dLFTMC Remisol Albumin/Globulin [Mass ratio]1.4 {ratio}Normal1.1 - 2.2[facility] RemisolALP [Catalytic activity/Vol]61 [iU]/nMqvzwk46 - 98 Int._Unit/LFTMC RemisolALT No additional P-5'-P [Catalytic activity/Vol]16 [iU]/dNormal6 - 46 Int._Unit/LFTMC RemisolAnion gap [Moles/Vol]13 mmol/LNormal6 - 16 mEq/LFTMC RemisolAST [Catalytic activity/Vol]18 [iU]/dNormal5 - 43 Int._Unit/LFTMC RemisolBilirubin [Mass/Vol]0.5 mg/dLNormal0.0 - 1.1 mg/dLFTMC RemisolCalcium [Mass/Vol]8.8 mg/dL Low8.9 - 11.1 mg/dLFTMC RemisolChloride [Moles/Vol]104 mmol/NWbwwvj096 - 111 mmol/LFTMC RemisolCO2 [Moles/Vol]28 mmol/JHbamas54 - 31 mmol/LFTMC Remisol Creatinine [Mass/Vol]1.8 mg/dLHigh0.5 - 1.3 mg/dLFTMC RemisolGFR/1.73 sq M.predicted among non-blacks MDRD (S/P/Bld) [Vol rate/Area]37 mL/min/1.73 m2Low >=59mL/min/1.73 m2FTMC Chem SGlobulin (S) [Mass/Vol]2.8 g/dLNormal1.4 - 4.0 gm/dLFTMC RemisolGlucose [Mass/Vol]111 mg/fXZjdiwa04 - 199 mg/dLFTMC Remisol Potassium [Moles/Vol]4.1 mmol/LNormal3.5 - 5.3 mmol/LFTMC RemisolProtein [Mass/Vol]6.6 g/dLNormal6.0 - 7.8 gm/dLFTMC RemisolSodium [Moles/Vol]141 mmol/L Arwfgu677 - 145 mmol/LFTMC RemisolUrea nitrogen [Mass/Vol]24 mg/dLHigh5 - 21 mg/dLFTMC RemisolUrea nitrogen/Creatinine [Mass ratio]13 mg/boRforow38 - 20FT[facility] RemisolHEMATOLOGYOrdered By: SYSTEM SYSTEM on 93-34-9252Gthfccfei/100 WBC (Bld) 0.9 %Normal0.0 - 2.0 %[facility] HemeAutoSSBasophils/Leukocytes Auto (Bld) [Pure # fraction]0.1 E9/LNormal0.0 - 0.2 E9/LFTMC HemeAutoSSEosinophils/100 WBC (Bld)5.1 %Normal0.0 - 8.0 %[facility] HemeAutoSSEosinophils/Leukocytes Auto (Bld) [Pure # fraction]0.3 E9/LNormal0.0 - 0.5 E9/LFTMC HemeAutoSSLymphocytes/100 WBC (Bld) 13.6 %Low14.0 - 50.0 %[facility] HemeAutoSSLymphocytes/Leukocytes Auto (Bld) [Pure # fraction]0.9 E9/LLow1.0 - 4.0 E9/LFTMC HemeAutoSSMonocytes/100 WBC (Bld)11.9 % Normal4.0 - 14.0 %[facility] HemeAutoSSMonocytes/Leukocytes Auto (Bld) [Pure # fraction]0.8 E9/LNormal0.2 - 1.0 E9/LFTMC HemeAutoSSNeutrophils/100 WBC (Bld) 68.5 %Latcag22.0 - 75.0 %[facility] HemeAutoSSNeutrophils/Leukocytes Auto (Bld) [Pure # fraction]4.6 E9/LNormal2.0 - 7.5 E9/LFTMC HemeAutoSSHEMATOLOGYOrdered By: Gauri Scott on 62-77-4229Loloxzdgmrg distribution width (RBC) [Ratio]14.7 % High10.9 - 14.2 %[facility] HemeAutoSSHematocrit (Bld) [Volume fraction]40.3 %Normal 37.7 - 49.0 %[facility] HemeAutoSSHemoglobin (Bld) [Mass/Vol]13.7 g/nZNwhnox80.5 - 17.5 gm/dLFTMC HemeAutoSSMCH (RBC) [Entitic mass]33.9 yuPvzcip14.0 - 34.0 pgFTMC HemeAutoSSMCHC (RBC) [Mass/Vol]34.0 g/gHBjibzo92.4 - 36.0 gm/dLFTMC HemeAutoSS MCV (RBC) [Entitic vol]99.8 aBOxbkgf24.0 - 100.0 fLFTMC HemeAutoSSPlatelet mean volume (Bld) [Entitic vol]9.8 fLNormal6.4 - 10.8 fLFTMC HemeAutoSSPlatelets (Bld) [#/Vol]161.0 E9/ZUadoov083.0 - 500.0 E9/LFTMC HemeAutoSSRBC (Bld) [#/Vol] 4.0 E12/LLow4.3 - 5.9 E12/LFTMC HemeAutoSSWBC corrected for nucl RBC Auto (Bld) [#/Vol]6.7 E9/LNormal4.0 - 11.0 E9/LFC HemeAutoSSALBUMINon 69-53-1515Uiwugdw [Mass/Vol]3.3 g/dLCritically low3.4-5.0The City HospitalComment on above: Performed By: #### MG, BMP, PHOS #### [facility] [address] [place] [address] Dr. David MaganaGLYCOHEMOGLOBIN A1Con 49-39-6846NUG RECOMMENDATIONSEE BELOWNormal St. [facility] HospitalComment on above:Result Comment: ADA RECOMMENDED LIMIT 4.0 - 6.0 ADA THERAPEUTIC TARGET < 7.0 ACTION SUGGESTED > 7.0Performed By: #### A1C #### [facility] [address] [address] [address] David MaganaGlucose [Mass/Vol]108 mg/dLNormalThe City HospitalComment on above:Performed By: #### A1C #### [facility] [address] [address] [address] David MaganaHbA1c (Bld) [Mass fraction]5.4 %Normal4.5-6.2The City HospitalComment on above:Performed By: #### A1C #### [facility] [address] [place] [address] Dr. David MaganaPHOSPHORUSon 69-01-9767Raovwafhk [Mass/Vol]3.6 mg/dLNormal2.6-4.7 [facility] HospitalComment on above:Performed By: #### MG, BMP, PHOS #### [facility] [address] [address] [address] David MaganaPROF CHEM 8 (BAS METB)on 16-05-7549Gncok gap [Moles/Vol]11.6 mmol/LNormalThe City HospitalComment on above:Performed By: #### MG, BMP, PHOS #### [facility] [address] [address] [address] David MaganaCalcium [Mass/Vol]8.9 mg/dLNormal8.5-10.1[facility] Comment on above:Performed By: #### MG, BMP, PHOS #### [facility] [address] [place] [address] Dr. David MaganaChloride [Moles/Vol]107 mmol/SBwzgfp75-094KiqSt. Elizabeth Hospital Comment on above:Performed By: #### MG, BMP, PHOS #### [facility] [address] [place] [address] Dr. David MaganaCO2 [Moles/Vol]30.8 mmol/OIjouny09.0-32.0[facility] Comment on above:Performed By: #### MG, BMP, PHOS #### [facility] [address] [address] [address] David MaganaCreatinine [Mass/Vol]1.67 mg/dLCritically high0.70-1.30The City HospitalComment on above:Performed By: #### MG, BMP, PHOS #### [facility] [address] [place] [address] Dr. Hernandez ChangEGFR-AF TNUYISFZ26 mL/min/1.15i2Hevmkwrizr low>=60The City HospitalComment on above:Performed By: #### MG, BMP, PHOS #### [facility] [address] [place] [address] Dr. David EvansGFR-NON AF OPHZTYMM43 mL/min/1.06a1Clqnjknrne low>=60The City HospitalComment on above:Performed By: #### MG, BMP, PHOS #### [facility] [address] [place] [address] Dr. David MaganaGlucose [Mass/Vol]128 mg/dLCritically mtgn00-242Txt City HospitalComment on above:Performed By: #### MG, BMP, PHOS #### [facility] [address] [place] [address] Dr. David MaganaPotassium [Moles/Vol]4.4 mmol/LNormal3.5-5.1[facility] Comment on above:Performed By: #### MG, BMP, PHOS #### [facility] [address] [place] [address] Dr. David MaganaSodium [Moles/Vol]145 mmol/NKdidyz185-517Cqo [facility] Comment on above:Performed By: #### MG, BMP, PHOS #### [facility] [address] [place] [address] Dr. David MaganaUrea nitrogen [Mass/Vol]25.0 mg/dLCritically high7.0-18.0The City HospitalComment on above:Performed By: #### MG, BMP, PHOS #### [facility] [address] [address] [address] David Gomez nitrogen/Creatinine [Mass ratio]15.0 mg/mgNoGlenbeigh HospitalComment on above:Performed By: #### MG, BMP, PHOS #### [facility] [address] [place] [address] Dr. David MaganaVITAMIN D 25 OHon 66-77-1515LQS D 25-OH11.6 ng/mLNormalThe City HospitalComment on above:Performed By: #### CBC #### [facility] [address] [place] [address] Dr. David Gil RANGESSEE BELOWNoGlenbeigh HospitalComment on above: Result Comment: <20 ng/mL Vit D deficient 20 - <30 ng/mL Vit D insufficient 30 - 100 ng/mL Vit D sufficient >100 ng/mL Potential ToxicityPerformed By: #### CBC #### [facility] [address] [place] [address] Dr. David Frazier AUTO DIFFon 40-38-5988AMIA #0.0 103/ulNormal0.0-0.1St. [facility] HospitalComment on above:Performed By: #### MG, BMP, PHOS #### [facility] [address] [place] [address] Dr. David MaganaBasophils/100 WBC (Bld)0.5 %Normal0.2-2.0[facility] Comment on above:Performed By: #### MG, BMP, PHOS #### [facility] [address] [place] [address] Dr. David [place] #0.7 103/ulNormal0.0-0.7The [facility] on above: Performed By: #### MG, BMP, PHOS #### [facility] [address] [place] [address] Dr. David Evansosinophils/100 WBC (Bld)9.3 %Critically high0.9-7.0The City HospitalComment on above:Performed By: #### MG, BMP, PHOS #### [facility] [address] [place] [address] Dr. David Evansrythrocyte distribution width (RBC) [Ratio]14.6 %Hzoxdf79.0-15.0 The City HospitalComment on above:Performed By: #### MG, BMP, PHOS #### [facility] [address] [place] [address] Dr. David MaganaHematocrit (Bld) [Volume fraction]41.5 %Critically low42.0-54.0 The City HospitalComment on above:Performed By: #### MG, BMP, PHOS #### [facility] [address] [place] [address] Dr. David MaganaHemoglobin (Bld) [Mass/Vol]13.9 g/dLCritically low14.0-18.0The City HospitalComment on above:Performed By: #### MG, BMP, PHOS #### [facility] [address] [place] [address] Dr. David Gerardo #0.02 10e3/ulNormal0.00-0.03The City HospitalComment on above:Performed By: #### MG, BMP, PHOS #### [facility] [address] [place] [address] Dr. David Gerardo %0.3 %Normal0.0-0.5The City HospitalComment on above: Performed By: #### MG, BMP, PHOS #### [facility] [address] [place] [address] Dr. David SotoH #1.0 103/ulCritically low1.2-3.8[facility] Comment on above:Performed By: #### MG, BMP, PHOS #### [facility] [address] [place] [address] Dr. David Ramosmphocytes/100 WBC (Bld)13.0 %Critically low20.5-60.0The City HospitalComment on above:Performed By: #### MG, BMP, PHOS #### [facility] [address] [address] [address] David Beasley DIFF REQNONormalThe City HospitalComment on above: Performed By: #### MG, BMP, PHOS #### [facility] [address] [place] [address] Dr. David Faulkner (RBC) [Entitic mass]33.5 xsLtzhlo49.9-34.0The [facility] HospitalComment on above:Performed By: #### MG, BMP, PHOS #### [facility] [address] [place] [address] Dr. David Faulkner (RBC) [Mass/Vol]33.5 g/nYAntstx50.9-35.2The City HospitalComment on above:Performed By: #### MG, BMP, PHOS #### [facility] [address] [place] [address] Dr. David Faulkner (RBC) [Entitic vol]100.0 fLCritically high80.0-94.0The City HospitalComment on above:Performed By: #### MG, BMP, PHOS #### [facility] [address] [place] [address] Dr. David Santos #0.8 103/ulNormal0.3-0.8The City HospitalComment on above:Performed By: #### MG, BMP, PHOS #### [facility] [address] [place] [address] Dr. David Dickensocytes/100 WBC (Bld)10.1 %Normal1.7-12.0[facility] Comment on above:Performed By: #### MG, BMP, PHOS #### [facility] [address] [place] [address] Dr. David Hartley #5.0 103/ulNormal1.4-6.5The City HospitalComment on above:Performed By: #### MG, BMP, PHOS #### [facility] [address] [place] [address] Dr. David Sargentutrophils/100 WBC (Bld)66.8 %Hplgtj17.0-75.0The City HospitalComment on above:Performed By: #### MG, BMP, PHOS #### [facility] [address] [place] [address] Dr. David Ortegalet mean volume (Bld) [Entitic vol]11.2 fLNormal9.5-13.5The City HospitalComment on above:Performed By: #### MG, BMP, PHOS #### [facility] [address] [place] [address] Dr. David MaganaPLT187 103/nxWxthbf747-028Evp City HospitalComment on above: Performed By: #### MG, BMP, PHOS #### [facility] [address] [place] [address] Dr. David MaganaRBC4.15 106/ulCritically low4.70-6.10The City HospitalComment on above:Performed By: #### MG, BMP, PHOS #### [facility] [address] [place] [address] Dr. David MaganaWBC7.5 103/ulNormal4.0-11.0The [facility] Hospitalment on above: Performed By: #### MG, BMP, PHOS #### [facility] [address] [place] [address] Dr. David Blair 14(COMP METB)on 88-58-4413Lpmaasq [Mass/Vol]3.5 g/dLNormal 3.4-5.0The City HospitalComment on above:Performed By: #### A1C #### [facility] [address] [place] [address] Dr. David MaganaAlbumin/Globulin [Mass ratio]1.1 {ratio}NormalThe City HospitalComment on above:Performed By: #### A1C #### [facility] [address] [place] [address] Dr. David Oates [Catalytic activity/Vol]76 U/JOmjcez31-561Mil City HospitalComment on above:Performed By: #### A1C #### [facility] [address] [address] [address] David Ag [Catalytic activity/Vol]23 U/JNanxtf59-30Nmr City HospitalComment on above:Performed By: #### A1C #### [facility] [address] [address] [address] David Camargo gap [Moles/Vol]13.1 mmol/LNormalSt. [facility] Comment on above:Performed By: #### A1C #### [facility] [address] [address] [address] David Iyer [Catalytic activity/Vol]17 U/FZtrwby84-04Tjn City HospitalComment on above:Performed By: #### A1C #### [facility] [address] [place] [address] Dr. David MaganaBilirubin [Mass/Vol]0.7 mg/dLNormal0.2-1.0[facility] Comment on above:Performed By: #### A1C #### [facility] [address] [place] [address] Dr. David MaganaCalcium [Mass/Vol]9.0 mg/dLNormal8.5-10.1[facility] Comment on above:Performed By: #### A1C #### [facility] [address] [place] [address] Dr. David MaganaChloride [Moles/Vol]105 mmol/IKmwxtj16-611Cvr [facility] Comment on above:Performed By: #### A1C #### [facility] [address] [address] [address] David MaganaCO2 [Moles/Vol]29.0 mmol/MNxbafj03.0-32.0[facility] Comment on above:Performed By: #### A1C #### [facility] [address] [place] [address] Dr. David MaganaCreatinine [Mass/Vol]1.77 mg/dLCritically high0.70-1.30The [facility] HospitalComment on above:Performed By: #### A1C #### [facility] [address] [address] [address] David EvansGFR-AF NVQHLJDF82 mL/min/1.55a3Pdibxwuyhg low>=60The City HospitalComment on above:Performed By: #### A1C #### [facility] [address] [address] [address] David EvansGFR-NON AF UWCLHTFY36 mL/min/1.69i7Bflkxkbmyt low>=60The City HospitalComment on above:Performed By: #### A1C #### [facility] [address] [address] [address] David MaganaGlobulin (S) [Mass/Vol]3.3 g/dLNormalThe City HospitalComment on above:Performed By: #### A1C #### [facility] [address] [address] [address] David MaganaGlucose [Mass/Vol]135 mg/dLCritically epqe49-207AhfKettering Health Main Campusment on above:Performed By: #### A1C #### [facility] [address] [address] [address] David MaganaPotassium [Moles/Vol]4.1 mmol/LNormal3.5-5.1[facility] Comment on above:Performed By: #### A1C #### [facility] [address] [address] [address] David MaganaProtein [Mass/Vol]6.8 g/dLNormal6.4-8.2[facility] Comment on above:Performed By: #### A1C #### [facility] [address] [address] [address] David MaganaSodium [Moles/Vol]143 mmol/HGupqoo782-639Uzw [facility] Comment on above:Performed By: #### A1C #### [facility] [address] [address] [address] David MaganaUrea nitrogen [Mass/Vol]31.0 mg/dLCritically high7.0-18.0The [facility] HospitalComment on above:Performed By: #### A1C #### [facility] [address] [place] [address] Dr. David MaganaUrea nitrogen/Creatinine [Mass ratio]17.5 mg/mgNoGlenbeigh HospitalCommary free bed rehabilitation hospital on above:Performed By: #### A1C #### [facility] [address] [place] [address] Dr. David MaganaPROTIMEon 80-65-5126SYO Coag (PPP) [Relative time]0.99 {INR} NormalKindred Healthcare on above:Performed By: #### A1C #### [facility] [address] [place] [address] Dr. David Rogers GUIDELINESSEE [facility] HospitalCommary [facility] on above:Result Comment: DESIRED INR: 2.0 - 3.0 CONDITIONS NOT LISTED BELOW 2.5 - 3.5 FOR PROSTHETIC HEART VALVE REPLACEMENT 2.5 - 3.5 RECURRENT THROMBOSIS Performed By: #### A1C #### [facility] [address] [place] [address] Dr. David MaganaPT Coag (PPP) [Time]10.5 sNormal9.0-11.6[facility] Comment on above:Performed By: #### A1C #### [facility] [address] [place] [address] Dr. David MaganaPTTon 39-41-3338vGGD Coag (Bld) [Time]33.0 fFqzzpk92.3-36.2[facility] on above:Performed By: #### POCGLUC #### [facility] [address] [place] [address] Dr. David MaganaALBUMINon 62-57-6424Aijgdlv [Mass/Vol]3.6 g/dLNormal3.4-5.0The [facility] on above:Performed By: #### CBC #### [facility] [address] [place] [address] Dr. David MaganaGLYCOHEMOGLOBIN A1Con 36-33-8833KFF RECOMMENDATIONSEE [facility] CenterComment on above:Result Comment: ADA RECOMMENDED LIMIT 4.0 - 6.0 ADA THERAPEUTIC TARGET < 7.0 ACTION SUGGESTED > 7.0Performed By: #### POCGLUC #### [facility] [address] [place] [address] Dr. David MaganaGlucose [Mass/Vol]140 mg/dLNormalThe City HospitalComment on above:Performed By: #### POCGLUC #### [facility] [address] [place] [address] Dr. David MaganaHbA1c (Bld) [Mass fraction]6.5 %Critically high4.5-6.2The City HospitalComment on above:Performed By: #### POCGLUC #### [facility] [address] [place] [address] Dr. David MaganaMAGNESIUMon 86-68-1894Tpcgutlrz [Mass/Vol]2.3 mg/dLNormal1.8-2.4 The City HospitalComment on above:Performed By: #### POCGLUC #### [facility] [address] [place] [address] Dr. David MaganaPROF CHEM 8 (BAS METB)on 35-50-5414Dwczl gap [Moles/Vol]13.2 mmol/LNormalThe City HospitalComment on above:Performed By: #### POCGLUC #### [facility] [address] [place] [address] Dr. David MaganaCalcium [Mass/Vol]9.0 mg/dLNormal8.5-10.1[facility] Comment on above:Performed By: #### POCGLUC #### [facility] [address] [place] [address] Dr. David MaganaChloride [Moles/Vol]105 mmol/CUpauhr90-678Exk [facility] Comment on above:Performed By: #### POCGLUC #### [facility] [address] [place] [address] Dr. David MaganaCO2 [Moles/Vol]28.9 mmol/MDvnzjb07.0-32.0[facility] Comment on above:Performed By: #### POCGLUC #### [facility] [address] [address] [address] David MaganaCreatinine [Mass/Vol]1.66 mg/dLCritically high0.70-1.30The City HospitalComment on above:Performed By: #### POCGLUC #### [facility] [address] [address] [address] David EvansGFR-AF FKKFJBDK68 mL/min/1.90k8Fxvgidnmjt low>=60The City HospitalComment on above:Performed By: #### POCGLUC #### [facility] [address] [address] [address] David EvansGFR-NON AF NJPHMHFX67 mL/min/1.13e2Fvnacrjldu low>=60The City HospitalComment on above:Performed By: #### POCGLUC #### [facility] [address] [address] [address] David MaganaGlucose [Mass/Vol]123 mg/dLCritically dtan70-619Ttz City HospitalComment on above:Performed By: #### POCGLUC #### [facility] [address] [address] [address] David MaganaPotassium [Moles/Vol]4.1 mmol/LNormal3.5-5.1[facility] Comment on above:Performed By: #### POCGLUC #### [facility] [address] [address] [address] David MaganaSodium [Moles/Vol]143 mmol/OGytfsj439-323Zif [facility] Comment on above:Performed By: #### POCGLUC #### [facility] [address] [address] [address] David MaganaUrea nitrogen [Mass/Vol]29.0 mg/dLCritically high7.0-18.0The [facility] Hospitalment on above:Performed By: #### POCGLUC #### [facility] [address] [address] [address] David MaganaUrea nitrogen/Creatinine [Mass ratio]17.5 mg/mgNormalThe City HospitalComment on above:Performed By: #### POCGLUC #### [facility] [address] [address] [address] David Wan T PROTEIN CREAT RATIOon 56-35-6924JS TOTAL PROTEIN<6.0 Normal<=12.0The St. Anthony's Hospitalment on above:Performed By: #### MG, BMP, PHOS #### [facility] [address] [place] [address] Dr. David Wan CREAT41.21 mg/eCWlymxi14.00-300.00The [facility] Comment on above:Performed By: #### MG, BMP, PHOS #### [facility] [address] [place] [address] Dr. David MaganaALBUMINon 34-21-2232Quqvouz [Mass/Vol]3.3 g/dLCritically low 3.4-5.0The City HospitalComment on above:Performed By: #### CBC #### [facility] [address] [place] [address] Dr. David MaganaCREATININE URINEon 34-21-6785CJRUL CREAT19.69 mg/dLCritically low 20.00-300.00The City HospitalComment on above:Performed By: #### MG, BMP, PHOS #### [facility] [address] [place] [address] Dr. David MaganaHEMOGLOBINon 68-57-0851Dsbratyzmn (Bld) [Mass/Vol]14.9 g/dLNormal 14.0-18.0The City HospitalComment on above:Performed By: #### MG, BMP, PHOS #### [facility] [address] [place] [address] Dr. David MaganaMAGNESIUMon 04-26-7222Rnvdqxxzk [Mass/Vol]2.2 mg/dLNormal1.8-2.4 The City HospitalComment on above:Performed By: #### CBC #### [facility] [address] [place] [address] Dr. Yilan ChangPHOSPHORUSon 43-65-2831Tmnpehyvr [Mass/Vol]3.9 mg/dLNormal2.6-4.7 The City HospitalComment on above:Performed By: #### CBC #### [facility] [address] [address] [address] David MaganaPROF CHEM 8 (BAS METB)on 51-18-2225Pxwsq gap [Moles/Vol]11.9 mmol/LNormalThe City HospitalComment on above:Performed By: #### CBC #### [facility] [address] [address] [address] David MaganaCalcium [Mass/Vol]8.8 mg/dLNormal8.5-10.1[facility] Comment on above:Performed By: #### CBC #### [facility] [address] [address] [address] David MaganaChloride [Moles/Vol]104 mmol/OQctxnj88-696Lkm [facility] Comment on above:Performed By: #### CBC #### [facility] [address] [address] [address] David MaganaCO2 [Moles/Vol]27.4 mmol/KMqsyah76.0-32.0[facility] Comment on above:Performed By: #### CBC #### [facility] [address] [address] [address] David MaganaCreatinine [Mass/Vol]1.68 mg/dLCritically high0.70-1.30The City HospitalComment on above:Performed By: #### CBC #### [facility] [address] [address] [address] Hernandez ChangEGFR-AF CROODYRT77 mL/min/1.72v0Ongtifqhhh low>=60The City HospitalComment on above:Performed By: #### CBC #### [facility] [address] [address] [address] David EvansGFR-NON AF HXWYXARN72 mL/min/1.98m5Kcogvjfddf low>=60The City HospitalComment on above:Performed By: #### CBC #### [facility] [address] [address] [address] David MaganaGlucose [Mass/Vol]212 mg/dLCritically rkri13-720Qqp City HospitalComment on above:Performed By: #### CBC #### [facility] [address] [address] [address] David MaganaPotassium [Moles/Vol]4.3 mmol/LNormal3.5-5.1[facility] Comment on above:Performed By: #### CBC #### [facility] [address] [address] [address] David MaganaSodium [Moles/Vol]139 mmol/CDznqsr237-690Ghv [facility] Comment on above:Performed By: #### CBC #### [facility] [address] [address] [address] David MaganaUrea nitrogen [Mass/Vol]25.0 mg/dLCritically high7.0-18.0The City HospitalComment on above:Performed By: #### CBC #### [facility] [address] [address] [address] David Gomez nitrogen/Creatinine [Mass ratio]14.9 mg/mgNormalThe City HospitalComment on above:Performed By: #### CBC #### [facility] [address] [address] [address] David MaganaPROTEIN RAND URINEon [id number] PROT<5.0Normal<=11.9The City HospitalComment on above:Performed By: #### MG, BMP, PHOS #### [facility] [address] [address] [address] David Mitchell KARI DOP LEG BILon [id number] KARI DOP LEG BILEXAMINATION: US KARI DOP LEG PARIS HISTORY: Edema [...] Electronically authenticated by: CLOVER PEREZ Date: 2022-11-02 16:21[facility] HospitalBNP[facility] [id number] peptide B (Bld) [Mass/Vol]2143.0 pg/mLCritically high<=1,800.0The City HospitalComment on above:Performed By: #### MG, BMP, PHOS #### [facility] [address] [address] [address] David Frazier AUTO DIFFon [id number] #0.0 103/ulNormal0.0-0.1The City HospitalComment on above:Performed By: #### A1C #### [facility] [address] [address] [address] David MaganaBasophils/100 WBC (Bld)0.3 %Normal0.2-2.0[facility] Comment on above:Performed By: #### A1C #### [facility] [address] [address] [address] David Colorado #0.3 103/ulNormal0.0-0.7The City HospitalComment on above: Performed By: #### A1C #### [facility] [address] [address] [address] David Evansosinophils/100 WBC (Bld)2.4 %Normal0.9-7.0[facility] Comment on above:Performed By: #### A1C #### [facility] [address] [address] [address] David Evansrythrocyte distribution width (RBC) [Ratio]13.4 %Crelnv39.0-15.0 The City HospitalComment on above:Performed By: #### A1C #### [facility] [address] [place] [address] Dr. David MaganaHematocrit (Bld) [Volume fraction]42.7 %Rokimo40.0-54.0The City HospitalComment on above:Performed By: #### A1C #### [facility] [address] [address] [address] David MaganaHemoglobin (Bld) [Mass/Vol]14.2 g/kSVugitd57.0-18.0The City HospitalComment on above:Performed By: #### A1C #### [facility] [address] [address] [address] David Gerardo #0.18 10e3/ulCritically high0.00-0.03[facility] Comment on above:Performed By: #### A1C #### [facility] [address] [place] [address] Dr. David Gerardo %1.6 %Critically high0.0-0.5The City HospitalComment on above:Performed By: #### A1C #### [facility] [address] [place] [address] Dr. David Patiño #0.9 103/ulCritically low1.2-3.8[facility] Comment on above:Performed By: #### A1C #### [facility] [address] [address] [address] David Sotohocytes/100 WBC (Bld)8.1 %Critically low20.5-60.0The City HospitalComment on above:Performed By: #### A1C #### [facility] [address] [address] [address] David DennisonUAL DIFF REQNONormalThe City HospitalComment on above: Performed By: #### A1C #### [facility] [address] [address] [address] [facility]ST[facility] ([facility] [Entitic mass]33.3 etKwvefb46.9-34.0The City HospitalComment on above:Performed By: #### A1C #### [facility] [address] [place] [address] Dr. David Faulkner (RBC) [Mass/Vol]33.3 g/oXVaassz02.9-35.2The [facility] HospitalComment on above:Performed By: #### A1C #### [facility] [address] [address] [address] David FaulknerV (RBC) [Entitic vol]100.2 fLCritically high80.0-94.0The City HospitalComment on above:Performed By: #### A1C #### [facility] [address] [address] [address] David Santos #1.2 103/ulCritically high0.3-0.8[facility] Comment on above:Performed By: #### A1C #### [facility] [address] [address] [address] David Dickensocytes/100 WBC (Bld)10.5 %Normal1.7-12.0[facility] Comment on above:Performed By: #### A1C #### [facility] [address] [place] [address] Dr. David SargentUT #8.9 103/ulCritically high1.4-6.5ThC[facility] Comment on above:Performed By: #### A1C #### [facility] [address] [address] [address] David Sargentutrophils/100 WBC (Bld)77.1 %Critically high43.0-75.0The City HospitalComment on above:Performed By: #### A1C #### [facility] [address] [address] [address] David Ortegalet mean volume (Bld) [Entitic vol]11.3 fLNormal9.5-13.5The City HospitalComment on above:Performed By: #### A1C #### [facility] [address] [address] [address] David MaganaPLT175 103/obZzlyom672-369Bme City HospitalComment on above: Performed By: #### A1C #### [facility] [address] [place] [address] Dr. David MaganaRBC4.26 106/ulCritically low4.70-6.10ThCleveland Clinic Avon HospitalComment on above:Performed By: #### A1C #### [facility] [address] [address] [address] David MaganaWBC11.5 103/ulCritically high4.0-11.0The City HospitalComment on above:Performed By: #### A1C #### [facility] [address] [address] [address] David MaganaPROF 14(COMP METB)on 31-78-3182Eusmozm [Mass/Vol]2.6 g/dL Critically low3.4-5.0The City HospitalComment on above:Performed By: #### MG, BMP, PHOS #### [facility] [address] [place] [address] Dr. David MaganaAlbumin/Globulin [Mass ratio]0.9 {ratio}NormalThe City HospitalComment on above:Performed By: #### MG, BMP, PHOS #### [facility] [address] [place] [address] Dr. David Oates [Catalytic activity/Vol]49 U/SThtnka93-094Dvn City HospitalComment on above:Performed By: #### MG, BMP, PHOS #### [facility] [address] [place] [address] Dr. David Ag [Catalytic activity/Vol]25 U/LSwawop62-01Vft City HospitalComment on above:Performed By: #### MG, BMP, PHOS #### [facility] [address] [place] [address] Dr. David Camargo gap [Moles/Vol]12.8 mmol/LNormalThe [facility] on above:Performed By: #### MG, BMP, PHOS #### [facility] [address] [place] [address] Dr. David Iyer [Catalytic activity/Vol]9 U/LCritically zss45-93Vsp City HospitalComment on above:Performed By: #### MG, BMP, PHOS #### [facility] [address] [place] [address] Dr. Yilan ChangBilirubin [Mass/Vol]0.5 mg/dLNormal0.2-1.0[facility] Comment on above:Performed By: #### MG, BMP, PHOS #### [facility] [address] [address] [address] David MaganaCalcium [Mass/Vol]8.3 mg/dLCritically low8.5-10.1The City HospitalComment on above:Performed By: #### MG, BMP, PHOS #### [facility] [address] [place] [address] Dr. David MaganaChloride [Moles/Vol]105 mmol/PKaxweq18-273UywSt. [facility] Hospital Comment on above:Performed By: #### MG, BMP, PHOS #### [facility] [address] [place] [address] Dr. David MaganaCO2 [Moles/Vol]24.2 mmol/IEjtanj03.0-32.0[facility] Comment on above:Performed By: #### MG, BMP, PHOS #### [facility] [address] [place] [address] Dr. David MaganaCreatinine [Mass/Vol]1.28 mg/dLNormal0.70-1.30The City HospitalComment on above:Performed By: #### MG, BMP, PHOS #### [facility] [address] [place] [address] Dr. Hernandez ChangEGFR-AF SERBIAN>60Normal>=60The City HospitalComment on above:Performed By: #### MG, BMP, PHOS #### [facility] [address] [place] [address] Dr. David EvansGFR-NON AF YIDWJCRB22 mL/min/1.41k9Pxuyhyilxa low>=60The City HospitalComment on above:Performed By: #### MG, BMP, PHOS #### [facility] [address] [place] [address] Dr. David MaganaGlobulin (S) [Mass/Vol]2.9 g/dLNormalThe City HospitalComment on above:Performed By: #### MG, BMP, PHOS #### [facility] [address] [address] [address] David MaganaGlucose [Mass/Vol]205 mg/dLCritically tcun86-037Xpp [facility] HospitalComment on above:Performed By: #### MG, BMP, PHOS #### [facility] [address] [place] [address] Dr. David MaganaPotassium [Moles/Vol]4.0 mmol/LNormal3.5-5.1[facility] Comment on above:Performed By: #### MG, BMP, PHOS #### [facility] [address] [place] [address] Dr. David MaganaProtein [Mass/Vol]5.5 g/dLCritically low6.4-8.2The City HospitalComment on above:Performed By: #### MG, BMP, PHOS #### [facility] [address] [place] [address] Dr. David Linkdium [Moles/Vol]138 mmol/APpqqdi998-926Jwb [facility] Comment on above:Performed By: #### MG, BMP, PHOS #### [facility] [address] [place] [address] Dr. David MaganaUrea nitrogen [Mass/Vol]36.0 mg/dLCritically high7.0-18.0The City HospitalComment on above:Performed By: #### MG, BMP, PHOS #### [facility] [address] [place] [address] Dr. David Gomez nitrogen/Creatinine [Mass ratio]28.1 mg/mgNormalThe City HospitalComment on above:Performed By: #### MG, BMP, PHOS #### [facility] [address] [place] [address] Dr. David Chau [id number] peptide B (Bld) [Mass/Vol]3485.0 pg/mLCritically high<=1,800.0The City HospitalComment on above:Result Comment: repeatedPerformed By: #### A1C #### [facility] [address] [place] [address] Dr. David Frazier AUTO DIFFon 05-95-8248JQGM #0.0 103/ulNormal0.0-0.1The City HospitalComment on above:Performed By: #### CBC #### [facility] [address] [place] [address] Dr. David MaganaBasophils/100 WBC (Bld)0.3 %Normal0.2-2.0[facility] Comment on above:Performed By: #### CBC #### [facility] [address] [place] [address] Dr. David Colorado #0.2 103/ulNormal0.0-0.7The City HospitalComment on above: Performed By: #### CBC #### [facility] [address] [place] [address] Dr. David Evansosinophils/100 WBC (Bld)1.9 %Normal0.9-7.0[facility] Comment on above:Performed By: #### CBC #### [facility] [address] [place] [address] Dr. David Evansrythrocyte distribution width (RBC) [Ratio]13.4 %Vgkdqk18.0-15.0 The City HospitalComment on above:Performed By: #### CBC #### [facility] [address] [place] [address] Dr. David MaganaHematocrit (Bld) [Volume fraction]42.5 %Nyjnjw69.0-54.0The City HospitalComment on above:Performed By: #### CBC #### [facility] [address] [place] [address] Dr. David MaganaHemoglobin (Bld) [Mass/Vol]14.2 g/aIEhnfwu41.0-18.0The City HospitalComment on above:Performed By: #### CBC #### [facility] [address] [place] [address] Dr. David Gerardo #0.22 10e3/ulCritically high0.00-0.03[facility] Comment on above:Performed By: #### CBC #### [facility] [address] [place] [address] Dr. David Gerardo %2.1 %Critically high0.0-0.5The City HospitalComment on above:Performed By: #### CBC #### [facility] [address] [place] [address] Dr. David Patiño #0.8 103/ulCritically low1.2-3.8[facility] Comment on above:Performed By: #### CBC #### [facility] [address] [place] [address] Dr. David Sotohocytes/100 WBC (Bld)7.7 %Critically low20.5-60.0The City HospitalComment on above:Performed By: #### CBC #### [facility] [address] [place] [address] Dr. David Beasley DIFF REQNONormalThe City HospitalComment on above: Performed By: #### CBC #### [facility] [address] [place] [address] Dr. David Torres (RBC) [Entitic mass]33.0 yyRyhjrw17.9-34.0The [facility] HospitalComment on above:Performed By: #### CBC #### [facility] [address] [place] [address] Dr. David Mireles (RBC) [Mass/Vol]33.4 g/qUHaqabg99.9-35.2The [facility] HospitalComment on above:Performed By: #### CBC #### [facility] [address] [place] [address] Dr. David Topete (RBC) [Entitic vol]98.8 fLCritically high80.0-94.0The [facility] HospitalComment on above:Performed By: #### CBC #### [facility] [address] [place] [address] Dr. David Santos #1.0 103/ulCritically high0.3-0.8[facility] Comment on above:Performed By: #### CBC #### [facility] [address] [place] [address] Dr. David Dickensocytes/100 WBC (Bld)9.7 %Normal1.7-12.0[facility] Comment on above:Performed By: #### CBC #### [facility] [address] [place] [address] Dr. David Hartley #8.1 103/ulCritically high1.4-6.5[facility] Comment on above:Performed By: #### CBC #### [facility] [address] [place] [address] Dr. David Sargentutrophils/100 WBC (Bld)78.3 %Critically high43.0-75.0The City HospitalComment on above:Performed By: #### CBC #### [facility] [address] [place] [address] Dr. David Ortegalet mean volume (Bld) [Entitic vol]10.7 fLNormal9.5-13.5The City HospitalComment on above:Performed By: #### CBC #### [facility] [address] [place] [address] Dr. David MaganaPLT177 103/alFtsszg395-372Owc [facility] HospitalComment on above: Performed By: #### CBC #### [facility] [address] [place] [address] Dr. David MaganaRBC4.30 106/ulCritically low4.70-6.10The [facility] HospitalComment on above:Performed By: #### CBC #### [facility] [address] [place] [address] Dr. David MaganaWBC10.4 103/ulNormal4.0-11.0The City HospitalComment on above:Performed By: #### CBC #### [facility] [address] [place] [address] Dr. Yilan ChangPROF 14(COMP METB)on 38-46-8600Qtrpkdd [Mass/Vol]2.6 g/dL Critically low3.4-5.0The City HospitalComment on above:Performed By: #### A1C #### [facility] [address] [place] [address] Dr. David MaganaAlbumin/Globulin [Mass ratio]1.0 {ratio}NormalThe City HospitalComment on above:Performed By: #### A1C #### [facility] [address] [place] [address] Dr. David HartP [Catalytic activity/Vol]50 U/BKmzygx06-852Uql [facility] HospitalComment on above:Performed By: #### A1C #### [facility] [address] [place] [address] Dr. David HartT [Catalytic activity/Vol]28 U/BFstcst07-59Jim [facility] HospitalComment on above:Performed By: #### A1C #### [facility] [address] [place] [address] Dr. David Camargo gap [Moles/Vol]11.4 mmol/LNormalThe [facility] Comment on above:Performed By: #### A1C #### [facility] [address] [place] [address] Dr. David MaganaAST [Catalytic activity/Vol]13 U/LCritically cax48-09Ayz [facility] HospitalComment on above:Performed By: #### A1C #### [facility] [address] [place] [address] Dr. David MaganaBilirubin [Mass/Vol]0.4 mg/dLNormal0.2-1.0[facility] Comment on above:Performed By: #### A1C #### [facility] [address] [place] [address] Dr. David MaganaCalcium [Mass/Vol]8.4 mg/dLCritically low8.5-10.1The City HospitalComment on above:Performed By: #### A1C #### [facility] [address] [place] [address] Dr. David MaganaChloride [Moles/Vol]107 mmol/RPyrqfu50-368Cuu [facility] Comment on above:Performed By: #### A1C #### [facility] [address] [address] [address] David MaganaCO2 [Moles/Vol]24.6 mmol/QGgamhb03.0-32.0[facility] Comment on above:Performed By: #### A1C #### [facility] [address] [address] [address] David MaganaCreatinine [Mass/Vol]1.26 mg/dLNormal0.70-1.30The [facility] HospitalComment on above:Performed By: #### A1C #### [facility] [address] [place] [address] Dr. Hernandez ChangEGFR-AF SERBIAN>60Normal>=60The [facility] HospitalComment on above:Performed By: #### A1C #### [facility] [address] [place] [address] Dr. David EvansGFR-NON AF INCMPIAH60 mL/min/1.32a7Lmawaknmro low>=60The [facility] HospitalComment on above:Performed By: #### A1C #### [facility] [address] [place] [address] Dr. David MaganaGlobulin (S) [Mass/Vol]2.7 g/dLNormalThe City HospitalComment on above:Performed By: #### A1C #### [facility] [address] [place] [address] Dr. David MaganaGlucose [Mass/Vol]203 mg/dLCritically ekim14-086Bia City HospitalComment on above:Performed By: #### A1C #### [facility] [address] [address] [address] David MaganaPotassium [Moles/Vol]4.0 mmol/LNormal3.5-5.1[facility] Comment on above:Performed By: #### A1C #### [facility] [address] [address] [address] David MaganaProtein [Mass/Vol]5.3 g/dLCritically low6.4-8.2The City HospitalComment on above:Performed By: #### A1C #### [facility] [address] [place] [address] Dr. David Ritchieum [Moles/Vol]139 mmol/XKbnuih633-314Dwm [facility] Comment on above:Performed By: #### A1C #### [facility] [address] [place] [address] Dr. David Gomez nitrogen [Mass/Vol]33.0 mg/dLCritically high7.0-18.0The City HospitalComment on above:Performed By: #### A1C #### [facility] [address] [place] [address] Dr. David Gomez nitrogen/Creatinine [Mass ratio]26.2 mg/mgNormalThe City HospitalComment on above:Performed By: #### A1C #### [facility] [address] [place] [address] Dr. David Chau 64-22-1478Enqqffstzlo peptide B (Bld) [Mass/Vol]7478.0 pg/mLCritically high<=1,800.0The City HospitalComment on above:Performed By: #### A1C #### [facility] [address] [place] [address] Dr. David Frazier AUTO DIFFon 84-89-5110WGWB #0.1 103/ulNormal0.0-0.1The City HospitalComment on above:Performed By: #### MG, BMP, PHOS #### [facility] [address] [place] [address] Dr. David MaganaBaluis fernandophils/100 WBC (Bld)0.8 %Normal0.2-2.0[facility] Comment on above:Performed By: #### MG, BMP, PHOS #### [facility] [address] [place] [address] Dr. David Colorado #0.1 103/ulNormal0.0-0.7The City HospitalComment on above: Performed By: #### MG, BMP, PHOS #### [facility] [address] [place] [address] Dr. David Evansosinophils/100 WBC (Bld)0.6 %Critically low0.9-7.0The City HospitalComment on above:Performed By: #### MG, BMP, PHOS #### [facility] [address] [place] [address] Dr. David Evansrythrocyte distribution width (RBC) [Ratio]13.4 %Rsovti50.0-15.0 The City HospitalComment on above:Performed By: #### MG, BMP, PHOS #### [facility] [address] [place] [address] Dr. David MaganaHematocrit (Bld) [Volume fraction]43.2 %Ngfxah63.0-54.0The City HospitalComment on above:Performed By: #### MG, BMP, PHOS #### [facility] [address] [place] [address] Dr. David MaganaHemoglobin (Bld) [Mass/Vol]14.2 g/cENqqjyz99.0-18.0The City HospitalComment on above:Performed By: #### MG, BMP, PHOS #### [facility] [address] [place] [address] Dr. David Gerardo #0.21 10e3/ulCritically high0.00-0.03[facility] Comment on above:Performed By: #### MG, BMP, PHOS #### [facility] [address] [place] [address] Dr. David Gerardo %2.0 %Critically high0.0-0.5The City HospitalComment on above:Performed By: #### MG, BMP, PHOS #### [facility] [address] [place] [address] Dr. David Patiño #0.8 103/ulCritically low1.2-3.8[facility] Comment on above:Performed By: #### MG, BMP, PHOS #### [facility] [address] [place] [address] Dr. David Ramosmphocytes/100 WBC (Bld)7.7 %Critically low20.5-60.0The City HospitalComment on above:Performed By: #### MG, BMP, PHOS #### [facility] [address] [place] [address] Dr. David Beasley DIFF REQNONormalThe City HospitalComment on above: Performed By: #### MG, BMP, PHOS #### [facility] [address] [place] [address] Dr. David Faulkner (RBC) [Entitic mass]33.2 tkWwboap97.9-34.0The City HospitalComment on above:Performed By: #### MG, BMP, PHOS #### [facility] [address] [place] [address] Dr. David Faulkner (RBC) [Mass/Vol]32.9 g/yXIwnhlt50.9-35.2The City HospitalComment on above:Performed By: #### MG, BMP, PHOS #### [facility] [address] [place] [address] Dr. David Topete (RBC) [Entitic vol]100.9 fLCritically high80.0-94.0The City HospitalComment on above:Performed By: #### MG, BMP, PHOS #### [facility] [address] [place] [address] Dr. David Santos #1.0 103/ulCritically high0.3-0.8[facility] Comment on above:Performed By: #### MG, BMP, PHOS #### [facility] [address] [place] [address] Dr. David Dickensocytes/100 WBC (Bld)10.0 %Normal1.7-12.0[facility] Comment on above:Performed By: #### MG, BMP, PHOS #### [facility] [address] [place] [address] Dr. David Hartley #8.1 103/ulCritically high1.4-6.5[facility] Comment on above:Performed By: #### MG, BMP, PHOS #### [facility] [address] [place] [address] Dr. David Sargentutrophils/100 WBC (Bld)78.9 %Critically high43.0-75.0The City HospitalComment on above:Performed By: #### MG, BMP, PHOS #### [facility] [address] [place] [address] Dr. David MaganaPlatelet mean volume (Bld) [Entitic vol]10.8 fLNormal9.5-13.5The City HospitalComment on above:Performed By: #### MG, BMP, PHOS #### [facility] [address] [place] [address] Dr. David MaganaPLT172 103/mcOblibs183-705Fhl City HospitalComment on above: Performed By: #### MG, BMP, PHOS #### [facility] [address] [place] [address] Dr. David MaganaRBC4.28 106/ulCritically low4.70-6.10The City HospitalComment on above:Performed By: #### MG, BMP, PHOS #### [facility] [address] [place] [address] Dr. David MaganaWBC10.3 103/ulNormal4.0-11.0The City HospitalComment on above:Performed By: #### MG, BMP, PHOS #### [facility] [address] [place] [address] Dr. David Varghese URINEon 43-30-0570ACIPOST URINEIsolate 1 Escherichia coli 15,000 cfu/mL of ORGANISM 1 Escherichia coli ANTIBIOTIC M.I.C RX STATUS Ampicillin >=32 R F Ampicillin/Sulbactam >=32 R F Piperacillin/Tazobactam <=4 S F Cefazolin <=4 S F Ceftazidime <=1 S F Ceftriaxone <=1 S F Ertapenem <=0.5 S F Imipenem <=0.25 S F Amikacin <=2 S F Gentamicin <=1 S F Tobramycin <=1 S F Ciprofloxacin >=4 R F Levofloxacin >=8 R F Nitrofurantoin <=16 S F Trimethoprim/Sulfamethoxazole >=320 R FNormalThe City HospitalComment on above:Performed By: #### MG, BMP, PHOS #### [facility] [address] [place] [address] Dr. David MaganaPROF 14(COMP METB)on [id number] [Mass/Vol]2.6 g/dL Critically low3.4-5.0The City HospitalComment on above:Performed By: #### A1C #### [facility] [address] [place] [address] Dr. David MaganaAlbumin/Globulin [Mass ratio]0.9 {ratio}NormalThe City HospitalComment on above:Performed By: #### A1C #### [facility] [address] [place] [address] Dr. David Oates [Catalytic activity/Vol]48 U/FIkpifq12-278Dum City HospitalComment on above:Performed By: #### A1C #### [facility] [address] [place] [address] Dr. David Ag [Catalytic activity/Vol]27 U/QNedprl91-44Ubb City HospitalComment on above:Performed By: #### A1C #### [facility] [address] [place] [address] Dr. David Camargo gap [Moles/Vol]13.4 mmol/LNormalThe [facility] Comment on above:Performed By: #### A1C #### [facility] [address] [place] [address] Dr. David Iyer [Catalytic activity/Vol]22 U/SNvgkzb58-60Amk City HospitalComment on above:Performed By: #### A1C #### [facility] [address] [place] [address] Dr. David MaganaBilirubin [Mass/Vol]0.5 mg/dLNormal0.2-1.0[facility] Comment on above:Performed By: #### A1C #### [facility] [address] [place] [address] Dr. Daivd MaganaCalcium [Mass/Vol]8.3 mg/dLCritically low8.5-10.1The City HospitalComment on above:Performed By: #### A1C #### [facility] [address] [place] [address] Dr. David MaganaChloride [Moles/Vol]105 mmol/APbcnmg24-050Bqw [facility] Comment on above:Performed By: #### A1C #### [facility] [address] [place] [address] Dr. David MaganaCO2 [Moles/Vol]21.0 mmol/NUzkywh17.0-32.0[facility] Comment on above:Performed By: #### A1C #### [facility] [address] [place] [address] Dr. David MaganaCreatinine [Mass/Vol]1.38 mg/dLCritically high0.70-1.30The City HospitalComment on above:Performed By: #### A1C #### [facility] [address] [place] [address] Dr. David EvansGFR-AF AKANFMWE71 mL/min/1.38n9Hhgiqn>=60[facility] Comment on above:Performed By: #### A1C #### [facility] [address] [place] [address] Dr. David EvansGFR-NON AF LRXBDZJQ74 mL/min/1.65g8Fimdkkdfae low>=60The City HospitalComment on above:Performed By: #### A1C #### [facility] [address] [place] [address] Dr. David MaganaGlobulin (S) [Mass/Vol]2.8 g/dLNormalThe City HospitalComment on above:Performed By: #### A1C #### [facility] [address] [place] [address] Dr. David MaganaGlucose [Mass/Vol]156 mg/dLCritically hmfw07-488Zkj City HospitalComment on above:Performed By: #### A1C #### [facility] [address] [place] [address] Dr. David MaganaPotassium [Moles/Vol]4.4 mmol/LNormal3.5-5.1[facility] Comment on above:Performed By: #### A1C #### [facility] [address] [place] [address] Dr. David MaganaProtein [Mass/Vol]5.4 g/dLCritically low6.4-8.2The City HospitalComment on above:Performed By: #### A1C #### [facility] [address] [place] [address] Dr. David Linkdium [Moles/Vol]135 mmol/LCritically pce314-175Vsn City HospitalComment on above:Performed By: #### A1C #### [facility] [address] [place] [address] Dr. David MaganaUrea nitrogen [Mass/Vol]40.0 mg/dLCritically high7.0-18.0The City HospitalComment on above:Performed By: #### A1C #### [facility] [address] [place] [address] Dr. David Gomez nitrogen/Creatinine [Mass ratio]29.0 mg/mgNormalThe City HospitalComment on above:Performed By: #### A1C #### [facility] [address] [place] [address] Dr. David Chau [id number] peptide B (Bld) [Mass/Vol]54174.0 pg/mLCritically high<=1,800.0The City HospitalComment on above:Performed By: #### CVDTBH #### [facility] [address] [place] [address] Dr. Daivd Frazier AUTO DIFFon [id number] #0.0 103/ulNormal0.0-0.1The City HospitalComment on above:Performed By: #### CBC #### [facility] [address] [address] [address] David MaganaBasophils/100 WBC (Bld)0.3 %Normal0.2-2.0[facility] Comment on above:Performed By: #### CBC #### [facility] [address] [address] [address] David Colorado #0.0 103/ulNormal0.0-0.7The City HospitalComment on above: Performed By: #### CBC #### [facility] [address] [place] [address] Dr. David Evansosinophils/100 WBC (Bld)0.2 %Critically low0.9-7.0The City HospitalComment on above:Performed By: #### CBC #### [facility] [address] [place] [address] Dr. David Evansrythrocyte distribution width (RBC) [Ratio]13.4 %Jjyral16.0-15.0 The City HospitalComment on above:Performed By: #### CBC #### [facility] [address] [place] [address] Dr. David MaganaHematocrit (Bld) [Volume fraction]43.4 %Qcbbxq03.0-54.0The City HospitalComment on above:Performed By: #### CBC #### [facility] [address] [place] [address] Dr. David MaganaHemoglobin (Bld) [Mass/Vol]14.6 g/zBVdgval92.0-18.0The City HospitalComment on above:Performed By: #### CBC #### [facility] [address] [place] [address] Dr. David Gerardo #0.18 10e3/ulCritically high0.00-0.03[facility] Comment on above:Performed By: #### CBC #### [facility] [address] [place] [address] Dr. David Gerardo %1.5 %Critically high0.0-0.5The Alberto HospitalComment on above:Performed By: #### CBC #### [facility] [address] [address] [address] David Patiño #0.8 103/ulCritically low1.2-3.8[facility] Comment on above:Performed By: #### CBC #### [facility] [address] [address] [address] David Sotohocytes/100 WBC (Bld)6.6 %Critically low20.5-60.0The City HospitalComment on above:Performed By: #### CBC #### [facility] [address] [address] [address] David Beasley DIFF REQNONormalThe City HospitalComment on above: Performed By: #### CBC #### [facility] [address] [address] [address] David Torres (RBC) [Entitic mass]33.7 zrQimdii54.9-34.0The City HospitalComment on above:Performed By: #### CBC #### [facility] [address] [address] [address] David Faulkner (RBC) [Mass/Vol]33.6 g/uUDisvca39.9-35.2The City HospitalComment on above:Performed By: #### CBC #### [facility] [address] [address] [address] David Faulkner (RBC) [Entitic vol]100.[address]LCritically high80.0-94.0[facility] HospitalComment on above:Performed By: #### CBC #### [facility] [address] [address] [address] David Santos #1.1 103/ulCritically high0.3-0.8[facility] Comment on above:Performed By: #### CBC #### [facility] [address] [address] [address] David Dickensocytes/100 WBC (Bld)9.3 %Normal1.7-12.0[facility] Comment on above:Performed By: #### CBC #### [facility] [address] [place] [address] Dr. David Hartley #9.6 103/ulCritically high1.4-6.5[facility] Comment on above:Performed By: #### CBC #### [facility] [address] [place] [address] Dr. David Sargentutrophils/100 WBC (Bld)82.1 %Critically high43.0-75.0The City HospitalComment on above:Performed By: #### CBC #### [facility] [address] [place] [address] Dr. David Ortegalet mean volume (Bld) [Entitic vol]10.8 fLNormal9.5-13.5The City HospitalComment on above:Performed By: #### CBC #### [facility] [address] [place] [address] Dr. David MaganaPLT202 103/bcAjstmg703-885Rnh City HospitalComment on above: Performed By: #### CBC #### [facility] [address] [place] [address] Dr. David MaganaRBC4.33 106/ulCritically low4.70-6.10The City HospitalComment on above:Performed By: #### CBC #### [facility] [address] [place] [address] Dr. David MaganaWBC11.7 103/ulCritically high4.0-11.0The City HospitalComment on above:Performed By: #### CBC #### [facility] [address] [place] [address] Dr. David Blair 14(COMP METB)on 71-99-0220Gccxxez [Mass/Vol]3.4 g/dLNormal 3.4-5.0The City HospitalComment on above:Performed By: #### A1C #### [facility] [address] [place] [address] Dr. David MaganaAlbumin/Globulin [Mass ratio]1.1 {ratio}NormalThe City HospitalComment on above:Performed By: #### A1C #### [facility] [address] [place] [address] Dr. David HartP [Catalytic activity/Vol]63 U/WRsvguq61-863Ilf City HospitalComment on above:Performed By: #### A1C #### [facility] [address] [place] [address] Dr. David Ag [Catalytic activity/Vol]34 U/GPpldfp93-58Vbj City HospitalComment on above:Performed By: #### A1C #### [facility] [address] [place] [address] Dr. David Bacaon gap [Moles/Vol]20.9 mmol/LNormalThe [facility] Comment on above:Performed By: #### A1C #### [facility] [address] [place] [address] Dr. David MaganaAST [Catalytic activity/Vol]18 U/ETmxjkh59-14Zbo St. [facility]'s Hospitalment on above:Performed By: #### A1C #### [facility] [address] [place] [address] Dr. David MaganaBilirubin [Mass/Vol]0.5 mg/dLNormal0.2-1.0[facility] Comment on above:Performed By: #### A1C #### [facility] [address] [place] [address] Dr. David MaganaCalcium [Mass/Vol]8.5 mg/dLNormal8.5-10.1[facility] Comment on above:Performed By: #### A1C #### [facility] [address] [place] [address] Dr. David MaganaChloride [Moles/Vol]99 mmol/OMyqjrl45-413J[facility] Comment on above:Performed By: #### A1C #### [facility] [address] [place] [address] Dr. David MaganaCO2 [Moles/Vol]19.1 mmol/LCritically low21.0-32.0The City HospitalComment on above:Performed By: #### A1C #### [facility] [address] [address] [address] David MaganaCreatinine [Mass/Vol]1.80 mg/dLCritically high0.70-1.30The City HospitalComment on above:Performed By: #### A1C #### [facility] [address] [address] [address] David EvansGFR-AF LJIMVSLD32 mL/min/1.27j6Qxwhuoscbo low>=60The City HospitalComment on above:Performed By: #### A1C #### [facility] [address] [place] [address] Dr. David EvansGFR-NON AF SJNWUEIN98 mL/min/1.96f0Gjkjiluevv low>=60The City HospitalComment on above:Performed By: #### A1C #### [facility] [address] [place] [address] Dr. David MaganaGlobulin (S) [Mass/Vol]3.2 g/dLNormalThe City HospitalComment on above:Performed By: #### A1C #### [facility] [address] [place] [address] Dr. David MaganaGlucose [Mass/Vol]287 mg/dLCritically ffsc89-411Mpz City HospitalComment on above:Performed By: #### A1C #### [facility] [address] [place] [address] Dr. David MaganaPotassium [Moles/Vol]5.0 mmol/LNormal3.5-5.1[facility] Comment on above:Performed By: #### A1C #### [facility] [address] [address] [address] David MaganaProtein [Mass/Vol]6.6 g/dLNormal6.4-8.2[facility] Comment on above:Performed By: #### A1C #### [facility] [address] [address] [address] David MaganaSodium [Moles/Vol]134 mmol/LCritically wpu739-526Veq City HospitalComment on above:Performed By: #### A1C #### [facility] [address] [address] [address] David Gomez nitrogen [Mass/Vol]51.0 mg/dLCritically high7.0-18.0[facility]. [facility] HospitalComment on above:Performed By: #### A1C #### [facility] [address] [place] [address] Dr. David Gomez nitrogen/Creatinine [Mass ratio]28.3 mg/mgFayette County Memorial HospitalComment on above:Performed By: #### A1C #### [facility] [address] [place] [address] Dr. David HAWTHORNE [facility] MODENASAL CANNULAFayette County Memorial HospitalComment on above:Performed By: #### A1C #### [facility] [address] [place] [address] Dr. David Barraza TESTPositiveFayette County Memorial HospitalComment on above: Performed By: #### A1C #### [facility] [address] [place] [address] Dr. David Marinelli excess Calc (Bld) [Moles/Vol]-9.0000 mmol/LCritically low -2.0-2.0The City HospitalComment on above:Performed By: #### A1C #### [facility] [address] [place] [address] Dr. David Coleman Barnesville HospitalComment on above: Performed By: #### A1C #### [facility] [address] [place] [address] Dr. David SarkarAPFayette County Memorial HospitalCommary [facility] bed rehabilitation hospital on above:Performed By: #### A1C #### [facility] [address] [place] [address] Dr. David OlsonMwopdAEM4HdchhxKvi19 Mccann StreetCommary free bed rehabilitation hospital on above:Performed By: #### A1C #### [facility] [address] [place] [address] Dr. David CelisO3 (Bld) [Moles/Vol]18.4 mmol/LCritically low22.0-26.0The City HospitalComment on above:Performed By: #### A1C #### [facility] [address] [place] [address] Dr. David MaganaLPM108 Gallegos StreetComment on above:Performed By: #### A1C #### [facility] [address] [place] [address] Dr. David MaganaMINUTE Ohio[facility] Arthur G.H. Bing, MD, Cancer CenterComment on above: Performed By: #### A1C #### [facility] [address] [place] [address] Dr. David MaganaOxygen (Bld) [Partial pressure]69.5 mm[Hg]Critically low 80.0-100.0The City HospitalComment on above:Performed By: #### A1C #### [facility] [address] [place] [address] Dr. David MaganaOxygen saturation in Blood94.2 %Critically low95.0-100.0The City HospitalComment on above:Performed By: #### A1C #### [facility] [address] [place] [address] Dr. David MaganaPCO229.6 mmHgCritically low35.0-45.0The City HospitalCommary free bed rehabilitation hospital on above:Performed By: #### A1C #### [facility] [address] [place] [address] Dr. David MaganaPECleveland Clinic Avon HospitalCommary free bed rehabilitation hospital on above:Performed By: #### A1C #### [facility] [address] [place] [address] Dr. David MaganapH (Bld)7.355 [pH]Normal7.350-7.450The City HospitalComment on above:Performed By: #### A1C #### [facility] [address] [place] [address] Dr. David MaganaPIPNormalThe City HospitalComment on above:Performed By: #### A1C #### [facility] [address] [place] [address] Dr. David MaganaSt. Mary's Medical CenterComment on above:Performed By: #### A1C #### [facility] [address] [place] [address] Dr. David George [facility] HospitalCommary [facility] rehabilitation hospital on above: Performed By: #### A1C #### [facility] [address] [place] [address] Dr. David Meloatrium health union westThe City HospitalComment on above:Performed By: #### A1C #### [facility] [address] [place] [address] Dr. David MaganaSelect Medical Specialty Hospital - AkronCommary free bed rehabilitation hospital on above:Performed By: #### A1C #### [facility] [address] [place] [address] Dr. David MaganaGreen Cross HospitalComment on above:Performed By: #### A1C #### [facility] [address] [place] [address] Dr. David Chau 36-56-2757Vbiigolnhuf peptide B (Bld) [Mass/Vol]7047.0 pg/mLCritically high<=1,800.0The St. Anthony's Hospitalment on above:Performed By: #### CVDTBH #### [facility] [address] [place] [address] Dr. David Sparrow BARRIE 3-6on 69-83-3025XN [Catalytic activity/Vol]396 U/L Critically kofn27-549Czt St. Anthony's Hospitalment on above:Performed By: #### MG, BMP, PHOS #### [facility] [address] [place] [address] Dr. David Vazquez.MB [Mass/Vol]2.94 ng/mLNormal<=3.60[facility] Comment on above:Performed By: #### MG, BMP, PHOS #### [facility] [address] [place] [address] Dr. David CavazosOP11.1 pg/mLNormal4.0-76.1[facility] on above:Result Comment: CUT-OFF POINTS HAVE BEEN ESTABLISHED BASED ON THE FOURTH UNIVERSAL DEFINITIONS OF MYOCARDIAL INFARCTION. THE UPPER REFERENCE LIMIT (URL) OF TROPONIN, DEFINED THE 99TH PERCENTILE OF cTnI DISTRIBUTION IN A REFERENCE POPULATION, HAS BEEN CONFIRMED THE DECISION THRESHOLD FOR TN DIAGNOSIS.Performed By: #### MG, BMP, PHOS #### [facility] [address] [place] [address] Dr. David Vazquez [Catalytic activity/Vol]58 U/RJimjll83-350Vni St. Anthony's Hospitalment on above:Performed By: #### MG, BMP, PHOS #### [facility] [address] [place] [address] Dr. David Vazquez.MB [Mass/Vol]1.71 ng/mLNormal<=3.60[facility] Comment on above:Performed By: #### MG, BMP, PHOS #### [facility] [address] [place] [address] Dr. David MaganaHSTROP10.6 pg/mLNormal4.0-76.1[facility] HospitalCommary [facility] bed rehabilitation hospital on above:Result Comment: CUT-OFF POINTS HAVE BEEN ESTABLISHED BASED ON THE FOURTH UNIVERSAL DEFINITIONS OF MYOCARDIAL INFARCTION. THE UPPER REFERENCE LIMIT (URL) OF TROPONIN, DEFINED THE 99TH PERCENTILE OF cTnI DISTRIBUTION IN A REFERENCE POPULATION, HAS BEEN CONFIRMED THE DECISION THRESHOLD FOR TN DIAGNOSIS.Performed By: #### MG, BMP, PHOS #### [facility] [address] [place] [address] Dr. David Frazier AUTO DIFFon [id number] #0.0 103/ulNormal0.0-0.1The City HospitalComment on above:Performed By: #### MG, BMP, PHOS #### [facility] [address] [place] [address] Dr. David MaganaBasophils/100 WBC (Bld)0.2 %Normal0.2-2.0[facility] Comment on above:Performed By: #### MG, BMP, PHOS #### [facility] [address] [place] [address] Dr. David Colorado #0.0 103/ulNormal0.0-0.7The City HospitalComment on above: Performed By: #### MG, BMP, PHOS #### [facility] [address] [place] [address] Dr. David Evansosinophils/100 WBC (Bld)0.2 %Critically low0.9-7.0The City HospitalComment on above:Performed By: #### MG, BMP, PHOS #### [facility] [address] [place] [address] Dr. David Evansrythrocyte distribution width (RBC) [Ratio]13.2 %Rdgzuk50.0-15.0 The City HospitalComment on above:Performed By: #### MG, BMP, PHOS #### [facility] [address] [place] [address] Dr. David MaganaHematocrit (Bld) [Volume fraction]43.8 %Khwwmt41.0-54.0The City HospitalComment on above:Performed By: #### MG, BMP, PHOS #### [facility] [address] [place] [address] Dr. David MaganaHemoglobin (Bld) [Mass/Vol]14.5 g/vHMmnaft78.0-18.0The St[facility] Anthony's Hospitalment on above:Performed By: #### MG, BMP, PHOS #### [facility] [address] [place] [address] Dr. David Gerardo #0.15 10e3/ulCritically high0.00-0.03[facility] Comment on above:Performed By: #### MG, BMP, PHOS #### [facility] [address] [place] [address] Dr. David Gerardo %1.3 %Critically high0.0-0.5The City HospitalComment on above:Performed By: #### MG, BMP, PHOS #### [facility] [address] [place] [address] Dr. Yilan ChangLYMPH #0.5 103/ulCritically low1.2-3.8[facility] Comment on above:Performed By: #### MG, BMP, PHOS #### [facility] [address] [place] [address] Dr. David Ramosmphocytes/100 WBC (Bld)3.8 %Critically low20.5-60.0The City HospitalComment on above:Performed By: #### MG, BMP, PHOS #### [facility] [address] [place] [address] Dr. David Beasley DIFF REQNONormalThe City HospitalComment on above: Performed By: #### MG, BMP, PHOS #### [facility] [address] [place] [address] Dr. David Faulkner (RBC) [Entitic mass]32.7 erVaopam17.9-34.0The City HospitalComment on above:Performed By: #### MG, BMP, PHOS #### [facility] [address] [place] [address] Dr. David Faulkner (RBC) [Mass/Vol]33.1 g/xLUagteg47.9-35.2The City HospitalComment on above:Performed By: #### MG, BMP, PHOS #### [facility] [address] [place] [address] Dr. David Faulkner (RBC) [Entitic vol]98.9 fLCritically high80.0-94.0The City HospitalComment on above:Performed By: #### MG, BMP, PHOS #### [facility] [address] [place] [address] Dr. David Santos #0.7 103/ulNormal0.3-0.8The City HospitalComment on above:Performed By: #### MG, BMP, PHOS #### [facility] [address] [place] [address] Dr. David Dickensocytes/100 WBC (Bld)5.7 %Normal1.7-12.0[facility] Comment on above:Performed By: #### MG, BMP, PHOS #### [facility] [address] [place] [address] Dr. David Hartley #10.4 103/ulCritically high1.4-6.5[facility] Comment on above:Performed By: #### MG, BMP, PHOS #### [facility] [address] [place] [address] Dr. David Sargentutrophils/100 WBC (Bld)88.8 %Critically high43.0-75.0The City HospitalComment on above:Performed By: #### MG, BMP, PHOS #### [facility] [address] [place] [address] Dr. David Ortegalet mean volume (Bld) [Entitic vol]11.0 fLNormal9.5-13.5The City HospitalComment on above:Performed By: #### MG, BMP, PHOS #### [facility] [address] [place] [address] Dr. David MaganaPLT198 103/wnPwpmlf766-487Hfp City HospitalComment on above: Performed By: #### MG, BMP, PHOS #### [facility] [address] [place] [address] Dr. David MaganaRBC4.43 106/ulCritically low4.70-6.10The City HospitalComment on above:Performed By: #### MG, BMP, PHOS #### [facility] [address] [place] [address] Dr. David MaganaWBC11.8 103/ulCritically high4.0-11.0The City HospitalComment on above:Performed By: #### MG, BMP, PHOS #### [facility] [address] [place] [address] Dr. David MaganaCT HEAD WO CONon [id number] HEAD WO CONINDICATION: 82 years old; Male. Change in mental [...] Electronically authenticated by: FRANCISCO ZELAYA Date: 2022-07-18 05:12NoGlenbeigh HospitalCovid-19 PCR (CVDTBH)on [id number]-CoV-2 (COVID-19) RNA SULTANA+probe Ql (Unsp spec)DetectedCritically abnormalNOT DETECTEDThe City HospitalComment on above:Result Comment: This test is not yet approved or cleared by the [place] FDA. When there are no FDA-approved or cleared tests available, and other criteria are met, FDA can make tests available under an emergency access mechanism called an Emergency Use Authorization (EUA). The EUA for this test is supported by the [employer] Inspector of Health and Human Service's declaration that circumstances exist to justify the emergency use of in vitro diagnostics for the detection and/or diagnosis of the virusthat causes COVID-19. This EUA will remain in effect for the duration of the COVID-19 declaration ju stifying emergency of IVDs, unless it is terminated or revoked by the FDA (after which the test mayno longer be used).Performed By: #### CVDTBH #### [facility] [address] [place] [address] Dr. David Corrales-DIMERon [id number]-DIMER1.69 mg/L FEUCritically high<=0.59The [facility] on above:Performed By: #### CBC #### [facility] [address] [place] [address] Dr. David Corrales-DIMER COMMENTSSEE BELOWNoGlenbeigh HospitalComment on above:Result Comment: Increases in D-Dimer concentration observed with thromboembolic events [...] stress, and generalized hospitalization. Performed By: #### CBC #### [facility] [address] [place] [address] Dr. David MaganaMEMORIAL HOSPITAL AND MANOR GLUCOSEon 60-82-1997Qzqszfr [Mass/Vol]329 mg/dL Critically ugen21-854VtdKindred Healthcare on above:Performed By: #### POCGLUC #### [facility] [address] [place] [address] Dr. David MaganaGlucose [Mass/Vol]354 mg/dLCritically mvtu95-540Dnm [facility] HospitalCom[facility] on above:Performed By: #### POCGLUC #### [facility] [address] [place] [address] Dr. David MaganaPROF 14(COMP METB)on 42-29-1277Xusksra [Mass/Vol]3.6 g/dLNormal 3.4-5.0[facility] on above:Performed By: #### CVDTBH #### [facility] [address] [place] [address] Dr. David MaganaAlbumin/Globulin [Mass ratio]1.1 {ratio}NormalThe [facility] on above:Performed By: #### CVDTBH #### [facility] [address] [place] [address] Dr. David HartP [Catalytic activity/Vol]67 U/JMffqrd76-162Cnt [facility] on above:Performed By: #### CVDTBH #### [facility] [address] [place] [address] Dr. David HartT [Catalytic activity/Vol]33 U/BFojvoy88-66Wgw [facility] on above:Performed By: #### CVDTBH #### [facility] [address] [address] [address] David MaganaAnion gap [Moles/Vol]23.5 mmol/LNormalThe [facility] Comment on above:Performed By: #### CVDTBH #### [facility] [address] [address] [address] David MaganaAST [Catalytic activity/Vol]13 U/LCritically vcf39-25Ysr City HospitalComment on above:Performed By: #### CVDTBH #### [facility] [address] [place] [address] Dr. David MaganaBilirubin [Mass/Vol]0.6 mg/dLNormal0.2-1.0[facility] Comment on above:Performed By: #### CVDTBH #### [facility] [address] [place] [address] Dr. David MaganaCalcium [Mass/Vol]8.4 mg/dLCritically low8.5-10.1The City HospitalComment on above:Performed By: #### CVDTBH #### [facility] [address] [address] [address] David MaganaChloride [Moles/Vol]93 mmol/LCritically hel51-115Ajb City HospitalComment on above:Performed By: #### CVDTBH #### [facility] [address] [address] [address] David MaganaCO2 [Moles/Vol]17.9 mmol/LCritically low21.0-32.0The City HospitalComment on above:Performed By: #### CVDTBH #### [facility] [address] [place] [address] Dr. David MaganaCreatinine [Mass/Vol]2.15 mg/dLCritically high0.70-1.30The City HospitalComment on above:Performed By: #### CVDTBH #### [facility] [address] [place] [address] Dr. Hernandez ChangEGFR-AF QVLRSTPO78 mL/min/1.47h8Bbfxheobjq low>=60The City HospitalComment on above:Performed By: #### CVDTBH #### [facility] [address] [address] [address] David Mchugh-NON AF YVGVAQOF33 mL/min/1.53r3Piewwwrmzy low>=60The City HospitalComment on above:Performed By: #### CVDTBH #### [facility] [address] [address] [address] David MaganaGlobulin (S) [Mass/Vol]3.2 g/dLNormalThe City HospitalComment on above:Performed By: #### CVDTBH #### [facility] [address] [address] [address] David MaganaGlucose [Mass/Vol]345 mg/dLCritically owmn74-506Dae City HospitalComment on above:Performed By: #### CVDTBH #### [facility] [address] [place] [address] Dr. David MaganaPotassium [Moles/Vol]5.4 mmol/LCritically high3.5-5.1The City HospitalComment on above:Performed By: #### CVDTBH #### [facility] [address] [place] [address] Dr. David MaganaPerformed By: #### K #### [facility] [address] [place] [address] Dr. David MaganaProtein [Mass/Vol]6.8 g/dLNormal6.4-8.2[facility] Comment on above:Performed By: #### CVDTBH #### [facility] [address] [place] [address] Dr. David MaganaSodium [Moles/Vol]129 mmol/LCritically eai428-311Pvi City HospitalComment on above:Performed By: #### CVDTBH #### [facility] [address] [place] [address] Dr. David MaganaUrea nitrogen [Mass/Vol]65.0 mg/dLCritically high7.0-18.0The City HospitalComment on above:Performed By: #### CVDTBH #### [facility] [address] [address] [address] David Gomez nitrogen/Creatinine [Mass ratio]30.2 mg/mgNormalThCleveland Clinic Avon HospitalComment on above:Performed By: #### CVDTBH #### [facility] [address] [address] [address] David Guerin RANDOM W/MICROSCOPICon 13-04-0795STOFYIWUOPRZ SEENNormalNONE SEENSt. Elizabeth HospitalCommary [facility] rehabilitation hospital on above:Performed By: #### MG, BMP, PHOS #### [facility] [address] [address] [address] David Gallegosirubin Ql (U)NegativeNormalNEGATIVESt. Elizabeth Hospital Comment on above:Performed By: #### MG, BMP, PHOS #### [facility] [address] [place] [address] Dr. David HerbertNONE SEENNormalNONE SEENKindred Healthcare on above:Performed By: #### MG, BMP, PHOS #### [facility] [address] [address] [address] David Poncearity (U)CLEARNormalCLEARKindred Healthcare on above: Performed By: #### MG, BMP, PHOS #### [facility] [address] [address] [address] David Briceño (U)LT. YELLOWNormalYELLOWSt. Elizabeth HospitalComment on above:Performed By: #### MG, BMP, PHOS #### [facility] [address] [address] [address] David MaganaCrystals LM Nom (Urine sed)NONE SEENNormalNONE SEENSt. Elizabeth HospitalCommary [facility] bed rehabilitation hospital on above:Performed By: #### MG, BMP, PHOS #### [facility] [address] [address] [address] Hernandez ChangEpithelial cells LM Ql (Urine sed)RARENormalNONE SEEN /RARESt. Elizabeth HospitalCommary free bed rehabilitation hospital on above:Performed By: #### MG, BMP, PHOS #### [facility] [address] [address] [address] David MaganaGlucose Ql (U)1000 mg/dlAbnormalNEGMercy Health Perrysburg Hospital Comment on above:Performed By: #### MG, BMP, PHOS #### [facility] [address] [address] [address] David MaganaHemoglobin Ql (U)NegativeNormalNEGATIVESt. Elizabeth Hospital Comment on above:Performed By: #### MG, BMP, PHOS #### [facility] [address] [address] [address] David MaganaKetones Ql (U)15 mg/dlAbnoalNEGMercy Health Perrysburg Hospital Comment on above:Performed By: #### MG, BMP, PHOS #### [facility] [address] [place] [address] Dr. David MaganaLEUKOCYTESNegativeNormalNEGMercy Health Perrysburg HospitalComment on above:Performed By: #### MG, BMP, PHOS #### [facility] [address] [address] [address] David MaganaMUCOUSNONE SEENNormalNONE SEENSt. Elizabeth HospitalComment on above:Performed By: #### MG, BMP, PHOS #### [facility] [address] [address] [address] David MaganaNitrite Ql (U)NegativeNormalNEGATIVESt. Elizabeth HospitalComment on above:Performed By: #### MG, BMP, PHOS #### [facility] [address] [address] [address] David MaganapH (U)5.5 [pH]Normal5-9The City HospitalComment on above: Performed By: #### MG, BMP, PHOS #### [facility] [address] [place] [address] Dr. David MaganaRBCNONE SEENAbnormal0-2St. Elizabeth HospitalComment on above: Performed By: #### MG, BMP, PHOS #### [facility] [address] [place] [address] Dr. David MaganaSPEC GRAVITY<=1.205Armcdxfr9.005-<=1.025[facility] Comment on above:Performed By: #### MG, BMP, PHOS #### [facility] [address] [place] [address] Dr. David Guerin PROTEINNegativeNormalNEGATIVE/ TRACEThe [facility] Comment on above:Performed By: #### MG, BMP, PHOS #### [facility] [address] [place] [address] Dr. David Barnesbilinogen Qn (U)0.2 {Dionna'U}/dLNormal0.2 - 1.0The City HospitalComment on above:Performed By: #### MG BMP, PHOS #### [facility] [address] [place] [address] Dr. David MaganaWBCNONKee SEENNormalNONE SEENThe City HospitalComment on above: Performed By: #### MG, BMP, PHOS #### [facility] [address] [place] [address] Dr. David MaganaXR CHEST 1 Von [id number] CHEST 1 VEXAM: XR CHEST 1 V HISTORY: SHORTNESS OF [...] Electronically authenticated by: Yefri DWYER Date: 2022-07-18 00:09[facility] HospitalCARDIAC BARRIE ADMITon [id number] [Catalytic activity/Vol]61 U/IVtfeln41-992Qci City HospitalComment on above:Performed By: #### CBC #### [facility] [address] [place] [address] Dr. David Vazquez.MB [Mass/Vol]1.84 ng/mLNormal<=3.60[facility] Comment on above:Performed By: #### CBC #### [facility] [address] [place] [address] Dr. David DacostaTROP9.4 pg/mLNormal4.0-76.1The City HospitalComment on above:Result Comment: CUT-OFF POINTS HAVE BEEN ESTABLISHED BASED ON THE FOURTH UNIVERSAL DEFINITIONS OF MYOCARDIAL INFARCTION. THE UPPER REFERENCE LIMIT (URL) OF TROPONIN, DEFINED THE 99TH PERCENTILE OF cTnI DISTRIBUTION IN A REFERENCE POPULATION, HAS BEEN CONFIRMED THE DECISION THRESHOLD FOR [place] DIAGNOSIS.Performed By: #### CBC #### [facility] [address] [place] [address] Dr. David FioreO533 ng/mLCritically xdyv88-31MuuSt. Elizabeth HospitalComment on above:Performed By: #### CBC #### [facility] [address] [place] [address] Dr. David Frazier AUTO DIFFon [id number] #0.0 103/ulNormal0.0-0.1The City HospitalComment on above:Performed By: #### MG, BMP, PHOS #### [facility] [address] [place] [address] Dr. David MaganaBasophils/100 WBC (Bld)0.2 %Normal0.2-2.0[facility] Comment on above:Performed By: #### MG, BMP, PHOS #### [facility] [address] [place] [address] Dr. David [place] #0.0 103/ulNormal0.0-0.7The City HospitalComment on above: Performed By: #### MG, BMP, PHOS #### [facility] [address] [place] [address] Dr. David Evansosinophils/100 WBC (Bld)0.1 %Critically low0.9-7.0St. Elizabeth HospitalComment on above:Performed By: #### MG, BMP, PHOS #### [facility] [address] [place] [address] Dr. Yilan ChangErythrocyte distribution width (RBC) [Ratio]13.2 %Fcbyra17.0-15.0 The City HospitalComment on above:Performed By: #### MG, BMP, PHOS #### [facility] [address] [place] [address] Dr. David MaganaHematocrit (Bld) [Volume fraction]43.1 %Oimcma20.0-54.0The City HospitalComment on above:Performed By: #### MG, BMP, PHOS #### [facility] [address] [place] [address] Dr. David MaganaHemoglobin (Bld) [Mass/Vol]14.5 g/xIZlfyhn08.0-18.0The City HospitalComment on above:Performed By: #### MG, BMP, PHOS #### [facility] [address] [place] [address] Dr. David Gerardo #0.14 10e3/ulCritically high0.00-0.03[facility] Comment on above:Performed By: #### MG, BMP, PHOS #### [facility] [address] [place] [address] Dr. David Gerardo %1.2 %Critically high0.0-0.5ThCleveland Clinic Avon HospitalComment on above:Performed By: #### MG, BMP, PHOS #### [facility] [address] [place] [address] Dr. David Patiño #0.4 103/ulCritically low1.2-3.8[facility] Comment on above:Performed By: #### MG, BMP, PHOS #### [facility] [address] [place] [address] Dr. David Sotohocytes/100 WBC (Bld)3.4 %Critically low20.5-60.0The City HospitalComment on above:Performed By: #### MG, BMP, PHOS #### [facility] [address] [place] [address] Dr. David DennisonUAL DIFF REQNONormalThe [facility] HospitalComment on above: Performed By: #### MG, BMP, PHOS #### [facility] [address] [place] [address] Dr. David Faulkner (RBC) [Entitic mass]33.3 prIdpxoh70.9-34.0The City HospitalComment on above:Performed By: #### MG, BMP, PHOS #### [facility] [address] [place] [address] Dr. David Faulkner (RBC) [Mass/Vol]33.6 g/zZWzsbqv10.9-35.2The [facility] HospitalComment on above:Performed By: #### MG, BMP, PHOS #### [facility] [address] [place] [address] Dr. David Faulkner (RBC) [Entitic vol]98.9 fLCritically high80.0-94.0The City HospitalComment on above:Performed By: #### MG, BMP, PHOS #### [facility] [address] [place] [address] Dr. David Santos #1.1 103/ulCritically high0.3-0.8ThCleveland Clinic Avon Hospital Comment on above:Performed By: #### MG, BMP, PHOS #### [facility] [address] [place] [address] Dr. aDvid Dickensocytes/100 WBC (Bld)8.9 %Normal1.7-12.0[facility] Comment on above:Performed By: #### MG, BMP, PHOS #### [facility] [address] [place] [address] Dr. David Hartley #10.3 103/ulCritically high1.4-6.5ThCleveland Clinic Avon Hospital Comment on above:Performed By: #### MG, BMP, PHOS #### [facility] [address] [place] [address] Dr. David Sargentutrophils/100 WBC (Bld)86.2 %Critically high43.0-75.0The City HospitalComment on above:Performed By: #### MG, BMP, PHOS #### [facility] [address] [place] [address] Dr. David Ortegalet mean volume (Bld) [Entitic vol]11.1 fLNormal9.5-13.5The City HospitalComment on above:Performed By: #### MG, BMP, PHOS #### [facility] [address] [place] [address] Dr. David MaganaPLT229 103/zdLmuqml644-260Fzg [facility] HospitalComment on above: Performed By: #### MG, BMP, PHOS #### [facility] [address] [place] [address] Dr. David MaganaRBC4.36 106/ulCritically low4.70-6.10The City HospitalComment on above:Performed By: #### MG, BMP, PHOS #### [facility] [address] [place] [address] Dr. David MaganaWBC11.9 103/ulCritically high4.0-11.0The City HospitalComment on above:Performed By: #### MG, BMP, PHOS #### [facility] [address] [place] [address] Dr. David MaganaPROBrian CHEM 8 (BAS METB)on 54-03-2254Gtacp gap [Moles/Vol]26.5 mmol/LNormalThe City HospitalComment on above:Performed By: #### CBC #### [facility] [address] [place] [address] Dr. David MaganaCalcium [Mass/Vol]8.2 mg/dLCritically low8.5-10.1The City HospitalComment on above:Performed By: #### CBC #### [facility] [address] [place] [address] Dr. David MaganaChloride [Moles/Vol]89 mmol/LCritically byc25-146Too City HospitalComment on above:Performed By: #### CBC #### [facility] [address] [place] [address] Dr. David MaganaCO2 [Moles/Vol]14.5 mmol/LCritically low21.0-32.0The City HospitalComment on above:Performed By: #### CBC #### [facility] [address] [place] [address] Dr. David MaganaCreatinine [Mass/Vol]2.78 mg/dLCritically high0.70-1.30The City HospitalComment on above:Performed By: #### CBC #### [facility] [address] [address] [address] David EvansGFR-AF ADCSTVGD20 mL/min/1.11n6Cpkzmwizir low>=60The [facility] HospitalCommary [facility] on above:Performed By: #### CBC #### [facility] [address] [place] [address] Dr. David EvansGFR-NON AF ICSVOPSA78 mL/min/1.25g2Xknlceqaxb low>=60The [facility] HospitalCommary [facility] on above:Performed By: #### CBC #### [facility] [address] [place] [address] Dr. David MaganaGlucose [Mass/Vol]442 mg/dLCritically ozon09-539Kzi [facility] HospitalCommary [facility] on above:Performed By: #### CBC #### [facility] [address] [place] [address] Dr. David MaganaPotassium [Moles/Vol]6.0 mmol/LCritically high3.5-5.1The [facility] HospitalCommary [facility] on above:Performed By: #### CBC #### [facility] [address] [place] [address] Dr. David MaganaSodium [Moles/Vol]124 mmol/LCritically ptk194-842Jvo [facility] HospitalCommary [facility] on above:Performed By: #### CBC #### [facility] [address] [place] [address] Dr. Daivd MaganaUrea nitrogen [Mass/Vol]73.0 mg/dLCritically high7.0-18.0The City HospitalComment on above:Performed By: #### CBC #### [facility] [address] [place], [place] [id number] Dr. David MaganaUrea nitrogen/Creatinine [Mass ratio]26.3 mg/mgNormalThe City HospitalComment on above:Performed By: #### CBC #### [facility] [address] [place] [address] Dr. David MaganaCovid-19 PCR (CVDTBH)on 76-50-9561GSPD-CoV-2 (COVID-19) RNA SULTANA+probe Ql (Unsp spec)DetectedCritically abnormalNOT DETECTEDThe City HospitalCommary [facility] on above:Result Comment: This test is not yet approved or cleared by the [place] FDA. When there are no FDA-approved or cleared tests available, and other criteria are met, FDA can make tests available under an emergency access mechanism called an Emergency Use Authorization (EUA). The EUA for this test is supported by the [place] of Health and Human Service's (HHS's) declaration [...] no longer be used). Performed By: #### MG, BMP, PHOS #### [facility] [address] [place] [address] Dr. Hernandez ChangECHOCARDIO M/2D COMPLETEon 56-77-7607RWGIPMDUWF M/2D COMPLETE Patient: NADIR BETH Exam Date: 07/01/2022 : 1940 Gender:M Ordering : DR CLARIBEL CISNEROS M.D. Admission #: [id number] Family : DR VAN YOUSSEF . Order #: [id number] CLICK HERE TO VIEW EXAM ECHOCARDIOGRAM REPORT [...] by: Rohini Traylor M.D. on 07/01/2022 at 16:27NoGlenbeigh HospitalCovid-19 PCR (CVDTBH)on 24-99-8867BIJJ-CoV-2 (COVID-19) RNA SULTANA+probe Ql (Unsp spec)Not detectedNormalNOT DETECTEDThe City HospitalComment on above: Result Comment: When diagnostic testing [...] for this test is supported by the [place] of Health and Human Service's declaration that circumstances exist to justify the emergency use of in vitro diagnostics for the detection and/or diagnosis of the virus that causes COVID-19. This EUA will remain in effect for the duration of the COVID-19 declaration justifying emergency of IVDs, unless it is terminated or revoked by the FDA (after which the test may no longer be used).Performed By: #### CVDTBH #### [facility] [address] [place] [address] Dr. David Valdes [facility] 44-06-8466UCMLI CREAT14.70 mg/dLCritically low 20.00-300.00The City HospitalComment on above:Performed By: #### MGERICK, PHOS #### [facility] [address] [address] [address] David MaganaGLYCOHEMOGLOBIN A1Con 86-01-5771HLW RECOMMENDATIONSEE BELOWNormal The City HospitalComment on above:Result Comment: ADA RECOMMENDED LIMIT 4.0 - 6.0 ADA THERAPEUTIC TARGET < 7.0 ACTION SUGGESTED > 7.0Performed By: #### A1C #### [facility] [address] [address] [address] David MaganaGlucose [Mass/Vol]209 mg/dLNormalThe City HospitalComment on above:Performed By: #### A1C #### [facility] [address] [place] [address] Dr. David MaganaHbA1c (Bld) [Mass fraction]8.9 %Critically high4.5-6.2The City HospitalComment on above:Performed By: #### A1C #### [facility] [address] [address] [address] David MaganaMAGNESIUMon 62-15-8153Cyqvgvdpa [Mass/Vol]2.3 mg/dLNormal1.8-2.4 The City HospitalComment on above:Performed By: #### MG BMP, PHOS #### [facility] [address] [place] [address] Dr. David MaganaPHOSPHORUSon 69-53-1663Yxafgmixo [Mass/Vol]3.5 mg/dLNormal2.6-4.7 The City HospitalComment on above:Performed By: #### MG BMP, PHOS #### [facility] [address] [place] [address] Dr. David MaganaPROF CHEM 8 (BAS METB)on 33-27-0150Aonvw gap [Moles/Vol]10.6 mmol/LNormalThe City HospitalComment on above:Performed By: #### MG, BMP, PHOS #### [facility] [address] [place] [address] Dr. David MaganaCalcium [Mass/Vol]9.2 mg/dLNormal8.5-10.1[facility] Comment on above:Performed By: #### MG, BMP, PHOS #### [facility] [address] [place] [address] Dr. David MaganaChloride [Moles/Vol]102 mmol/XRzjtwv75-416Dcg [facility] Comment on above:Performed By: #### MG, BMP, PHOS #### [facility] [address] [place] [address] Dr. David MaganaCO2 [Moles/Vol]30.1 mmol/FStewbc14.0-32.0[facility] Comment on above:Performed By: #### MG, BMP, PHOS #### [facility] [address] [place] [address] Dr. David MaganaCreatinine [Mass/Vol]1.70 mg/dLCritically high0.70-1.30The City HospitalComment on above:Performed By: #### MG, BMP, PHOS #### [facility] [address] [place] [address] Dr. David EvansGFR-AF ZUHWIDLO85 mL/min/1.28k0Xpjmucgiad low>=60The City HospitalComment on above:Performed By: #### MG, BMP, PHOS #### [facility] [address] [place] [address] Dr. David EvansGFR-NON AF RWBSGUQC50 mL/min/1.06g2Cxuaqaudtu low>=60The City HospitalComment on above:Performed By: #### MG, BMP, PHOS #### [facility] [address] [place] [address] Dr. David MaganaGlucose [Mass/Vol]197 mg/dLCritically dcbz17-860Jww City HospitalComment on above:Performed By: #### MG, BMP, PHOS #### [facility] [address] [place] [address] Dr. David MaganaPotassium [Moles/Vol]4.7 mmol/LNormal3.5-5.1[facility] Comment on above:Performed By: #### MG BMP, PHOS #### [facility] [address] [address] [address] David MaganaSodium [Moles/Vol]138 mmol/RPixgsf150-668M[facility] Comment on above:Performed By: #### MG, BMP, PHOS #### [facility] [address] [address] [address] David MaganaUrea nitrogen [Mass/Vol]25.0 mg/dLCritically high7.0-18.0The City HospitalComment on above:Performed By: #### MG BMP, PHOS #### [facility] [address] [place] [address] Dr. David Gomez nitrogen/Creatinine [Mass ratio]14.7 mg/mgNormalThe City HospitalComment on above:Performed By: #### MG, BMP, PHOS #### [facility] [address] [place] [address] Dr. David MaganaPROTEIN RAND URINEon 96-22-2117QF PROT<5.0Normal<=11.9The City HospitalComment on above:Performed By: #### CREAU, PROTU #### [facility] [address] [place] [address] Dr. David MaganaBILIRUBIN CONJUGATED (DIRECT)on 22-57-0026MNDB, CONJUGATED0.1 mg/dLNormal0.0-0.2The City HospitalComment on above:Performed By: #### POCGLUC #### [facility] [address] [place] [address] Dr. David KovacsC AUTO DIFFon 16-71-0321EHLF #0.1 103/ulNormal0.0-0.1The City HospitalComment on above:Performed By: #### CVDTBH #### [facility] [address] [place] [address] Dr. David MaganaBasophils/100 WBC (Bld)0.7 %Normal0.2-2.0[facility] Comment on above:Performed By: #### CVDTBH #### [facility] [address] [place] [address] Dr. David [place] #0.5 103/ulNormal0.0-0.7The City HospitalComment on above: Performed By: #### CVDTBH #### [facility] [address] [place] [address] Dr. David Evansosinophils/100 WBC (Bld)6.7 %Normal0.9-7.0[facility] Comment on above:Performed By: #### NEEMATBH #### [facility] [address] [place] [address] Dr. David Evansrythrocyte distribution width (RBC) [Ratio]13.6 %Hpssmf34.0-15.0 The City HospitalComment on above:Performed By: #### NEEMATBH #### [facility] [address] [place] [address] Dr. David MaganaHematocrit (Bld) [Volume fraction]45.9 %Zopbcs28.0-54.0The City HospitalComment on above:Performed By: #### NEEMATBH #### [facility] [address] [place] [address] Dr. David MaganaHemoglobin (Bld) [Mass/Vol]14.9 g/lFFepjzm97.0-18.0The City HospitalComment on above:Performed By: #### CVDTBH #### [facility] [address] [place] [address] Dr. David Gerardo #0.03 10e3/ulNormal0.00-0.03The City HospitalComment on above:Performed By: #### CVDTBH #### [facility] [address] [place] [address] Dr. David Gerardo %0.4 %Normal0.0-0.5The City HospitalComment on above: Performed By: #### CVDTBH #### [facility] [address] [address] [address] David Patiño #1.0 103/ulCritically low1.2-3.8[facility] Comment on above:Performed By: #### CVDTBH #### [facility] [address] [address] [address] David Ramosmphocytes/100 WBC (Bld)13.4 %Critically low20.5-60.0The City HospitalComment on above:Performed By: #### CVDTBH #### [facility] [address] [address] [address] David DennisonUAL DIFF REQNONormalThe City HospitalComment on above: Performed By: #### CVDTBH #### [facility] [address] [place] [address] Dr. David Torres (RBC) [Entitic mass]33.8 zuLpcaov39.9-34.0The City HospitalComment on above:Performed By: #### CVDTBH #### [facility] [address] [place] [address] Dr. David Faulkner (RBC) [Mass/Vol]32.5 g/gGIbarsk78.9-35.2The City HospitalComment on above:Performed By: #### CVDTBH #### [facility] [address] [place] [address] Dr. David Faulkner (RBC) [Entitic vol]104.1 fLCritically high80.0-94.0The City HospitalComment on above:Performed By: #### CVDTBH #### [facility] [address] [place] [address] Dr. David Santos #0.8 103/ulNormal0.3-0.8The City HospitalComment on above:Performed By: #### CVDTBH #### [facility] [address] [place] [address] Dr. David Dickensocytes/100 WBC (Bld)10.2 %Normal1.7-12.0[facility] Comment on above:Performed By: #### CVDTBH #### [facility] [address] [place] [address] Dr. David Hartley #5.1 103/ulNormal1.4-6.5The City HospitalComment on above:Performed By: #### CVDTBH #### [facility] [address] [place] [address] Dr. David Sargentutrophils/100 WBC (Bld)68.6 %Ololvi24.0-75.0The City HospitalComment on above:Performed By: #### CVDTBH #### [facility] [address] [place] [address] Dr. David Vigil mean volume (Bld) [Entitic vol]11.3 fLNormal9.5-13.5The City HospitalComment on above:Performed By: #### CVDTBH #### [facility] [address] [place] [address] Dr. David MaganaPLT185 103/yqIbohtm581-743Ufm City HospitalComment on above: Performed By: #### CVDTBH #### [facility] [address] [place] [address] Dr. David MaganaRBC4.41 106/ulCritically low4.70-6.10The City HospitalComment on above:Performed By: #### CVDTBH #### [facility] [address] [place] [address] Dr. David MaganaWBC7.5 103/ulNormal4.0-11.0The City HospitalComment on above: Performed By: #### CVDTBH #### [facility] [address] [place] [address] Dr. David Neal T3on 27-27-0214SPYA T32.17 pg/mlLCritically low2.18-3.98The City HospitalComment on above:Performed By: #### POCGLUC #### [facility] [address] [place] [address] Dr. David TrujilloID PROFILEon 85-17-6296FAPC-HDL RATIO NORMSRegency Hospital Cleveland WestComment on above:Result Comment: 3.3 - 4.4 LOW RISK 4.4 - 7.1 AVERAGE RISK 7.1 - 11.0 MODERATE RISK >11.0 HIGH RISKPerformed By: #### POCGLUC #### [facility] [address] [address] [address] David MaganaCholesterol [Mass/Vol]234 mg/dLCritically high<=200The [facility] HospitalCommary [facility] on above:Performed By: #### POCGLUC #### [facility] [address] [address] [address] David MaganaCholesterol in HDL [Mass/Vol]58 mg/iFVubvpd79-64IkhKindred Healthcare on above:Performed By: #### POCGLUC #### [facility] [address] [address] [address] David MaganaCholesterol in LDL [Mass/Vol]129.0 mg/dLFayette County Memorial HospitalCommary free bed rehabilitation hospital on above:Performed By: #### POCGLUC #### [facility] [address] [address] [address] David Merinoesterdanna.total/Cholesterol in HDL [Mass ratio]4.0 {ratio} NormalKindred Healthcare on above:Performed By: #### POCGLUC #### [facility] [address] [address] [address] David Dee NORMAL> or = 60 mg/dl - LOW CARDIOVASCULAR RISK <40 mg/dl - HIGH CARDIOVASCULAR RISKFayette County Memorial HospitalCommary [facility] rehabilitation hospital on above:Performed By: #### POCGLUC #### [facility] [address] [address] [address] David Kebede CALC NORMALSEE [facility] HospitalCom[facility] on above:Result Comment: <100 mg/dl OPTIMAL 100 - 129 mg/dl NEAR OR ABOVE OPTIMAL 130 - 159 mg/dl BORDERLINE HIGH 160 - 189 mg/dl HIGH >190 mg/dl VERY HIGH Performed By: #### POCGLUC #### [facility] [address] [address] [address] David MaganaTriglyceride [Mass/Vol]235 mg/dLCritically high<=150The City HospitalComment on above:Performed By: #### POCGLUC #### [facility] [address] [address] [address] David MaganaVLDL CALC47.0 mg/dLNormalThe City HospitalComment on above: Performed By: #### POCGLUC #### [facility] [address] [address] [address] David MaganaPROF 14(COMP METB)on 26-90-8217Caarbds [Mass/Vol]3.2 g/dL Critically low3.4-5.0The City HospitalComment on above:Performed By: #### POCGLUC #### [facility] [address] [place] [address] Dr. David MaganaAlbumin/Globulin [Mass ratio]0.9 {ratio}NormalThe City HospitalComment on above:Performed By: #### POCGLUC #### [facility] [address] [address] [address] David Oates [Catalytic activity/Vol]77 U/ERvtwov00-232Ait [facility] Anthony's Hospitalment on above:Performed By: #### POCGLUC #### [facility] [address] [address] [address] David Ag [Catalytic activity/Vol]24 U/HByybgo33-36Wsy City HospitalComment on above:Performed By: #### POCGLUC #### [facility] [address] [address] [address] David Camargo gap [Moles/Vol]13.1 mmol/LNormalThe [facility] on above:Performed By: #### POCGLUC #### [facility] [address] [address] [address] David MaganaAST [Catalytic activity/Vol]13 U/LCritically gyo19-03Vma St. Anthony's Hospitalment on above:Performed By: #### POCGLUC #### [facility] [address] [address] [address] David MaganaBilirubin [Mass/Vol]0.3 mg/dLNormal0.2-1.0[facility] Comment on above:Performed By: #### POCGLUC #### [facility] [address] [place] [address] Dr. David MaganaCalcium [Mass/Vol]8.8 mg/dLNormal8.5-10.1[facility] Comment on above:Performed By: #### POCGLUC #### [facility] [address] [address] [address] David MaganaChloride [Moles/Vol]106 mmol/DFysivz86-906Lfj [facility] Comment on above:Performed By: #### POCGLUC #### [facility] [address] [place] [address] Dr. David MaganaCO2 [Moles/Vol]27.5 mmol/VIreehs43.0-32.0[facility] Comment on above:Performed By: #### POCGLUC #### [facility] [address] [address] [address] David MaganaCreatinine [Mass/Vol]1.62 mg/dLCritically high0.70-1.30The City HospitalComment on above:Performed By: #### POCGLUC #### [facility] [address] [place] [address] Dr. David EvansGFR-AF MVNZJWCP10 mL/min/1.56v0Gqdeuwyvbq low>=60The City HospitalComment on above:Performed By: #### POCGLUC #### [facility] [address] [address] [address] David EvansGFR-NON AF YHZYSZLS62 mL/min/1.22y0Qfqakwmmif low>=60The City HospitalComment on above:Performed By: #### POCGLUC #### [facility] [address] [place] [address] Dr. David MaganaGlobulin (S) [Mass/Vol]3.4 g/dLNormalThe City HospitalComment on above:Performed By: #### POCGLUC #### [facility] [address] [address] [address] David MaganaGlucose [Mass/Vol]206 mg/dLCritically gwtr68-299Fmo City HospitalComment on above:Performed By: #### POCGLUC #### [facility] [address] [address] [address] David MaganaPotassium [Moles/Vol]4.6 mmol/LNormal3.5-5.1[facility] Comment on above:Performed By: #### POCGLUC #### [facility] [address] [address] [address] David MaganaProtein [Mass/Vol]6.6 g/dLNormal6.4-8.2[facility] Comment on above:Performed By: #### POCGLUC #### [facility] [address] [place] [address] Dr. David MaganaSodium [Moles/Vol]142 mmol/IHhzbak130-480Vnx [facility] Comment on above:Performed By: #### POCGLUC #### [facility] [address] [address] [address] David MaganaUrea nitrogen [Mass/Vol]26.0 mg/dLCritically high7.0-18.0The City HospitalComment on above:Performed By: #### POCGLUC #### [facility] [address] [address] [address] David MaganaUrea nitrogen/Creatinine [Mass ratio]16.0 mg/mgNormalThe City HospitalComment on above:Performed By: #### POCGLUC #### [facility] [address] [address] [address] David Montes4on 56-81-3586X0 [Mass/Vol]7.70 ug/dLNormal4.50-12.10The City HospitalComment on above:Performed By: #### POCGLUC #### [facility] [address] [address] [address] David SaundersHolaura 07-06-1949ZSD2.187 uIU/mLNormal0.358-3.740St. Elizabeth HospitalComment on above:Performed By: #### POCGLUC #### [facility] [address] [place] [address] Dr. David SaundersCleveland Clinic Lutheran HospitalComment on above: Result Comment: <0.34 UIU/ml HYPERTHYROID 0.34-5.60 UIU/ml EUTHYROID >5.60 UIU/ml HYPOTHYROIDPerformed By: #### POCGLUC #### [facility] [address] [place] [address] Dr. David Magana Vital Signs Date TimeVital SignValuePerforming DrsavrkgmBkikmueb00-57-2724 10:36-0400Body pvksam371.7 cmBarrie Montoya MD Work Phone: [phone] [place], [place] [address]Ycjyczsgsu08-47-4604 10:36-0400Body mass index (BMI) [Ratio]27.22 kg/m2Barrie Montoya MD Work Phone: [phone] [place], [place] [address]Ddcywvqkvl40-90-5080 10:36-0400Body iqhvdz69.19 kgBarrie Montoya MD Work Phone: [facility] CenterXkuomadqdd87-47-2810 11:28-0400Body jwxwaa986.9 cmBlaise Brown DPM Work Phone: [facility] CenterZhuwfcetbn97-89-7888 11:28-0400Body mass index (BMI) [Ratio]25.09 kg/i0MetdhiirBlaise Chicas DPM Work Phone: [phone] [place], [place] [address]Uiuqmdwhbt08-15-4502 11:28-0400Body mhttxi32.92 kgJossholgregg Chicas DPM Work Phone: [address] [phone] 11:28-0400Respiratory rate16 /minBlaise Chicas DPM Work Phone: [facility] CenterPqunrcvojl39-02-8070 16:32-0400Body rtrapj544.9 cmMony Herron NP Work Phone: [facility] CenterKdczvtnbly57-20-0906 16:32-0400Body mass index (BMI) [Ratio]25.09 kg/w8Kaueuzhtresa Herron CREDIT ANALYSIS MANAGER Work Phone: [facility] CenterLfaahzuoaw85-13-2409 16:32-0400Body qntilg84.92 kgFetresa Herron CREDIT ANALYSIS MANAGER Work Phone: [facility] CenterCwbpneqgle88-92-6885 11:05-0400Body .9 cmNicholas Brown DPM Work Phone: [facility] CenterGgvjbfmzgp49-49-1819 11:05-0400Body mass index (BMI) [Ratio]24.95 kg/o3Dkgiugbd Brown DPM Work Phone: [facility] CenterJgyxtxfpdu17-83-8563 11:05-0400Body .46 kgNicholas Brown DPM Work Phone: [facility] CenterVwvxwqctyc80-16-6258 11:05-0400Respiratory rate16 /minNicholas Brown DPM Work Phone: [facility] CenterEagixftfoy93-97-6650 12:58-0400Body vyrpka398.9 cmBarrie Montoya MD Work Phone: [facility] CenterQtfyfznzio52-11-6243 12:58-0400Body mass index (BMI) [Ratio]24.95 kg/m2Mark Jan GUSTAFSON Work Phone: [facility] CenterDewskapbcx07-67-3648 12:58-0400Body .46 kgBarrie Montoya MD Work Phone: [facility] CenterUquxrqfcrf95-99-4582 08:56-0400Body xustpr269.9 cmNicholas Brown DPM Work Phone: [facility] CenterIcddbdcgwo08-49-2402 08:56-0400Body mass index (BMI) [Ratio]39.2 kg/x5Hjgslshw Brown DPM Work Phone: [facility] CenterKwtanbwwqs23-22-9961 08:56-0400Body sztqow664.09 kgNicholas Brown DPM Work Phone: [facility] CenterQsmbihikbe13-46-8128 08:56-0400Respiratory rate18 /minNicholas Brown DPM Work Phone: [facility] CenterBvudphdwii27-79-8254 08:44-0500Diastolic blood ezjbgyio55 mm[Hg]MARQUIS NKANSAH-AMANKRA [facility]01-20-2025 08:44-0500Heart rate78 /minKWABENA NKANSAH-AMANKRA [facility]01-20-2025 08:44-0500Systolic blood tqlysunl734 mm[Hg]MARQUIS NKANSAH-AMANKRA [facility]01-16-2025 08:28-0500Body diienc536.9 cmNicumm Brown DPM Work Phone: [facility] CenterEhjeaeskbr37-85-9685 08:28-0500Body mass index (BMI) [Ratio]39.2 kg/a6Zdbeeqnh Brown DPM Work Phone: [phone]-[facility] CenterIrmoaoezho55-19-7627 08:28-0500Body nbupst189.09 kgNicumm Brown DPM Work Phone: [facility] CenterTeqgrzjytm65-86-0018 08:28-0500Respiratory rate16 /minBlaise Brown DPM Work Phone: [facility] CenterJxjokvarvy16-70-3120 08:09-0500Blood Pressure LocationKWABENA NKANSAH-AMANKRA [facility] [place] 737582-19-2024 08:09-0500Diastolic blood gnmtulnv91 mm[Hg]MARQUIS NKANSAH-AMANKRA [facility] [place] 737582-19-2024 08:09-0500Heart rate65 /minKWABENA NKANSAH-AMANKRA [facility] [place] 737582-19-2024 08:09-0500Systolic blood cpmrkysa287 mm[Hg]MARQUIS NKANSAH-AMANKRA [facility] [place] 737580-31-2024 08:19-0400Body apdtcj909.9 cmBlaise Chicas DPM Work Phone: [phone] [place], [place] [address]Nlrmeepmno42-17-6692 08:19-0400Body mass index (BMI) [Ratio]39.2 kg/w3XwxofvmaBlaise Chicas DPM Work Phone: [phone] [place], [place] [address]Gltfcdthss30-76-8563 08:19-0400Body quveyj373.09 kgBlaise Chicas DPM Work Phone: [facility] CenterNmhythgcqe26-56-3650 08:19-0400Diastolic blood oszuyehp06 mm[Hg]Blaise Chicas DPM Work Phone: [phone] [place], [place] [address]Dbajclxgvf66-91-4588 08:19-0400Heart rate81 /min Blaise Chicas DPM Work Phone: [facility] CenterAsqahtezvo29-02-0410 08:19-0400Systolic blood gumbutji128 mm[Hg]Blaise Chicas DPM Work Phone: [facility] CenterHesmhejoav46-54-9109 10:25-0400Blood Pressure LocationKMUNDO NKANSAH-AMANKRA [facility]09-24-2024 10:25-0400Diastolic blood uwksvdsz96 mm[Hg]MARQUIS NKANSAH-AMANKRA [facility]09-24-2024 10:25-0400Systolic blood luwxvgly839 mm[Hg]MARQUIS NKANSAH-AMANKRA [facility]09-19-2024 08:45-0400Body egwtqm922.9 cmBlaise Aviva DPM Work Phone: [address] [phone] 08:45-0400Body mass index (BMI) [Ratio]39.2 kg/c3Zjkwjxrn Brown DPM Work Phone: [address] [phone] 08:45-0400Body iiofyn158.09 kgSachigregg Chicas DPM Work Phone: [address] [phone] 08:45-0400Diastolic blood psykebaz60 mm[Hg]Blaise Chicas DPM Work Phone: [address] [phone] 08:45-0400Heart rate75 /min Blaise Aviva DPM Work Phone: [address] [phone] 08:45-0400Respiratory rate18 /minBlaise Aviva DPM Work Phone: [address] [phone] 08:45-0400Systolic blood yjyvdvqq191 mm[Hg]Blaise Chicas DPM Work Phone: [facility] CenterCgtesbkpaj35-75-6980 11:24-0400Body gfbthy061.9 cmBarrie Montoya MD Work Phone: [address] [phone] 11:24-0400Body mass index (BMI) [Ratio]39.2 kg/m2Barrie Montoya MD Work Phone: [address] [phone] 11:24-0400Body hxccah487.09 kgBarrie Montoya MD Work Phone: [address] [phone] 11:24-0400Diastolic blood reinlrqr31 mm[Hg]Barrie Montoya MD Work Phone: [address] [phone] 11:24-0400Heart rate73 /min Barrie Montoya MD Work Phone: [address] [phone] 11:24-0400Systolic blood mm[Hg]Barrie Montoya MD Work Phone: [facility] CenterZzgrpcbzwr55-08-5794 08:27-0400Body ebclur440.9 cmBlaise Chicas DPM Work Phone: [facility] CenterBjnkcgpewh13-86-6353 08:27-0400Body mass index (BMI) [Ratio]26.04 kg/f9RuhdqzvyBlaise Chicas DPM Work Phone: [facility] CenterKbxcwljkng53-19-4808 08:27-0400Body mjliiu83.09 kgBlaise Chicas DPM Work Phone: [address] [phone] 08:27-0400Diastolic blood vrsfpgys28 mm[Hg]Blaise Chicas DPM Work Phone: [address] [phone] 08:27-0400Heart rate75 /min Blaise Chicas DPM Work Phone: [facility] CenterNdnkkstxqx97-07-1353 08:27-0400Respiratory rate18 /minBlaise Chicas DPM Work Phone: [facility] CenterYtgunmfmuf61-50-2110 08:27-0400Systolic blood qhepbwmu395 mm[Hg]Blaise Chicas DPM Work Phone: [facility] CenterVekqqmlnfh67-21-8275 08:27-0400Body hyjqys939.9 cmBlaise Chicas DPM Work Phone: [facility] CenterTrsyhilhbr53-25-0802 08:27-0400Body mass index (BMI) [Ratio]26.04 kg/y5IsnsbjnfBlaise Chicas DPM Work Phone: [address] [place] [phone] 08:27-0400Body qzeigr75.09 kgBlaise Chicas DPM Work Phone: [address] [place] [phone] 08:27-0400Diastolic blood pljovhbw54 mm[Hg]Blaise Chicas DPM Work Phone: [facility] CenterKyrnxebygu33-93-7225 08:27-0400Heart rate77 /min Blaise Chicas DPM Work Phone: [facility] CenterHckuxztvxp76-92-8374 08:27-0400Systolic blood qulsgjgt924 mm[Hg]Blaise Chicas DPM Work Phone: [facility] CenterUuetkqgbch71-60-1020 14:33-0500Diastolic blood zfzjxluo77 mm[Hg]Nereyda Patricia 394-9732Nhflef-Zswus[address] [place], [place] 31[address]11-30-2023 14:33-0500Mean blood ftoniarg86 mm[Hg]Nereyda Patricia 669-7407Htloot-Awgje[address] [place] [address]-30-2023 14:33-0500Systolic blood orffmfby683 mm[Hg]Nereyda Patricia 637-2289Cdijna-Kptcn[address] [place], [place] [address]11-30-2023 14:18-0500Blood Pressure LocationBeth Patricia 591-4177Twfuuz-Ekspu[address] [place], [place] [address]11-30-2023 14:18-0500Body nbffnhhvioz37.88 [degF]Nereyda Patricia 750-2298Epnklp-Oudfc[address] [place], [place] [address]11-30-2023 14:18-0500Diastolic blood oydeggfc56 mm[Hg]Nereyda Patricia 887-4189Jtlifu-Medlj[address] [place] [address]-30-2023 14:18-0500Heart rate91 /minBeth Patricia 411-7947Ydupwb-Jalut[address] [place] [address]-30-2023 14:18-0500Systolic blood ijuvmhav258 mm[Hg]Nereyda Patricia 845-5385Auxdgo-Ihhoe[address] [place] [address]-17-2023 12:13-0500Diastolic blood rmqzhakp62 mm[Hg]Nereyda Patricia 411-4953Hwyvny-Qfcgr[address] [place] [address]-17-2023 12:13-0500Mean blood misirblr424 mm[Hg]Nereyda Patricia [phone]-EbcozJames [place]ille [address]-17-2023 12:13-0500Systolic blood mycvflfl842 mm[Hg]Nereyda Gomez 647-5062Znjfzg-QasgnJames Ville [address]-17-2023 12:10-0500Blood Pressure LocationBeth Patricia 532-0671Xqpdvl-KsxgeJames Ville [address]-17-2023 12:10-0500Body chlewagemws56.42 [degF]Nereyda Gomez 020-9645Yccfly-QchyhJames Ville [address]-17-2023 12:10-0500Diastolic blood cjrvqvpa50 mm[Hg]Nereyda Joyametz 501-7146Isilqf-VyywhJames Ville [address]-17-2023 12:10-0500Heart rate81 /minBeth Patricia 963-7021Egbmqu-KacaoJames Ville [address]-17-2023 12:10-0500Respiratory rate14 /minBeth Patricia 790-1166Jljxyd-LehquJames Ville [address]-17-2023 12:10-0500Systolic blood xgbsunnm467 mm[Hg]Nereyda Gomez 098-1149Dtkjyj-GrtwxRenee Ville [address]-27-2023 10:43-0400Diastolic blood ahralbpo54 mm[Hg]Nereyda Gomez 507-9322Qxoiag-HjkjiRenee Ville [address]-27-2023 10:43-0400Heart rate76 /minBeth Patricia 405-7328Yggbzk-HtiubRenee Ville [address]-27-2023 10:43-0400Respiratory rate16 /minBeth Patricia 617-6740Praosl-UyauoRenee Ville [address]-27-2023 10:43-0072SiY5% (BldA) [Mass fraction]95 %Nereyda Joyametz 581-4492Usphnv-QujhtCorey Hospital07-27-2023 10:43-0400Systolic blood xerjdbnh255 mm[Hg]Nereyda Patricia [phone]-ZkbqxCorey Hospital05-30-2023 14:19-0400Diastolic blood ssgaksgm37 mm[Hg]Nereyda Patricia 297-7423Fukpvg-BgziwCorey Hospital05-30-2023 14:19-0400Mean blood idwsloov77 mm[Hg]Nereyda Patricia 299-4778Tgofzw-Pjfyv[address] [place], [place] 31[address]505-30-2023 14:19-0400Systolic blood yaozzxrj142 mm[Hg]Nereyda Patricia 988-8624Hxvmoo-Zkmbv[address] [place], [place] 3101505-30-2023 14:15-0400Blood Pressure LocationBeth Patricia 622-5748Iehktc-Saibu[address] [place], [place] 31[address]505-30-2023 14:15-0400Body ubmwpxdjhix89.7 [degF]Nereyda Patricia 002-0974Ktormm-Colif[address] [place], [place] [address]505-30-2023 14:15-0400Diastolic blood qzmkxjip28 mm[Hg]Nereyda Patricia 322-9222Wjhjkh-PjjflCorey Hospital05-30-2023 14:15-0400Heart rate70 /minBeth Patricia 903-2697Ulnksy-UziumCorey Hospital05-30-2023 14:15-0400Systolic blood ktkedxhn563 mm[Hg]Nereyda Patricia 587-8540Qlgsyy-ZksgrCorey Hospital07-26-2022 10:02-0400Body awwwjvyzuue64.98 [degF]Nereyda Patricia 289-8679Dhihek-NscrySelect [facility] 799599-69-4772 10:02-0400Diastolic blood yfudexqg94 mm[Hg] Nereyda Patricia 339-0909Fxtxvz-SxicxSelect [facility]ty [facility] 07-26-2022 10:02-0400Heart rate72 /minBeth Patricia 297-1322Ydyhky-SoecrSelect Medical Specialty [facility] 07-26-2022 10:02-7966XdN9% (BldA) [Mass fraction]97 % Nereyda Gomez 214-3114Mbfrpi-CutvlSelect Medical [facility] 07-26-2022 10:02-0400Systolic blood ucwtgurz818 mm[Hg] Nereydasergio Gomez 093-9040Ihqqpg-BbxmgSelect Medical [facility] 624099-69-3290 11:30-0400Diastolic blood bhfzuzpe517 mm[Hg] Bender SALAM [facility]06-27-2022 11:30-0400Heart rate86 /minMaher SALAM [facility]06-27-2022 11:30-0400 Respiratory rate15 /minMaher SALAM [facility]06-27-2022 11:30-9977BlO7% (BldA) [Mass fraction]95 %Bender SALAM [facility]06-27-2022 11:30-0400 Systolic blood bwxweovt448 mm[Hg]Bender SALAM [facility]06-27-2022 11:15-0400 Diastolic blood pgqucimy54 mm[Hg]Bender SALAM [facility]06-27-2022 11:15-0400Heart rate86 /minMaher SALAM [facility]06-27-2022 11:15-0400 Respiratory rate18 /minMaher SALAM [facility]06-27-2022 11:15-7952MjR6% (BldA) [Mass fraction]97 %Bender SALAM [facility]06-27-2022 11:15-0400 Systolic blood uchanbzd239 mm[Hg]Bender SALAM [address] [place], [place] [address]906-27-2022 11:10-0400 Diastolic blood igowhoba468 mm[Hg]Bender SALAM [facility]06-27-2022 11:10-0400Heart rate85 /minMaher SALAM [address] [place], [place] [address]906-27-2022 11:10-0400 Respiratory rate14 /minMaher SALAM [address] [place], [place] [address]906-27-2022 11:10-1090MtN6% (BldA) [Mass fraction]97 %[facility] SALAM [facility]06-27-2022 11:10-0400 Systolic blood mfkojhal069 mm[Hg]Bender SALAM [facility]06-27-2022 11:02-0400Body pjjuwopgpiz88.34 [degF]Bender SALAM [facility]06-27-2022 10:27-0400Blood Pressure LocationMaher SALAM [facility]06-27-2022 10:23-0400Blood Pressure LocationMaher SALAM [facility]06-27-2022 10:23-0400Body sonqwkpcosy55.24 [degF]Bender SALAM [facility]05-17-2022 09:53-0400Blood Pressure LocationBeth Patricia [phone]-KvezcSelect [facility] 578566-42-8659 09:53-0400Body ypuxiqrhyay78.7 [degF]Nereyda Gomez [phone]-DydiuSelect [facility]ty [facility] 05-17-2022 09:53-0400Diastolic blood atpbwoxa33 mm[Hg] Nereyda Gomez [phone]-FskdrSelect [facility]ty [facility] [id number] 09:53-0400Heart rate73 /minNereyda Gomez [phone]-KizdqSelect [facility] 05-17-2022 09:53-8718GyL9% (BldA) [Mass fraction]96 % Nereyda Gomez [phone]-NjzjmSelect [facility] 05-17-2022 09:53-0400Systolic blood vnsunece314 mm[Hg] Nereyda Gomez [phone]-XluucSelect [facility] Encounters Encounter DateEncounter TypeCare ProviderFacilityStart: [id number] MARQUIS NEELY-AMJOVANIRAFacility:NAV Gardinertart: 08-22-2025 End: 21-28-0164Rjpqygwvw encounterClaritza MONIQUE [facility] Start: 08-01-2025 End: 39-47-4117lqwovyoebvTKAYIFV [facility]tart: 07-30[facility]2025 End: 61-25-0190mobpgcgwwhROQN [facility] [facility]25 End: 85-75-9713Nzlifclissett Montoya MD Work Phone: noms NEUROLOGYStart: 07-27-2025 End: 84-96-6793Mhcknosharon Montoya MD Work Phone: noms NEUROLOGYStart: 07-27-2025 End: 70-39-0690rvsawyampwOKCN D BEJNot AvailableStart: 07-27-2025 End: 57-08-9980Wsjtiu outpatient visit 25 minutesBarrie Montoya MD Work Phone: noStoneCrest [facility] Center NeurologyComment on above: Tremor (Primary Dx); Neurogenic pain; Carotid stenosis, bilateral; Sequelae of cerebral infarction; JOSIAH (obstructive sleep apnea); B12 deficiency; Cervical paraspinal muscle spasmStart: 07-10-2025 End: 45-23-1307Harhtvsharon Montoya MD Work Phone: noms NEUROLOGYStart: 07-10-2025 End: 93-32-4872Xoapevlissett Montoya MD Work Phone: noms NEUROLOGYStart: 07-10-2025 End: 60-69-5990Msqnzk outpatient visit 25 minutesBarrie Montoya MD Work Phone: noStoneCrest [facility] Center NeurologyComment on above: Tremor (Primary Dx); Neurogenic pain; Carotid stenosis, bilateral; Sequelae of cerebral infarction; JOSIAH (obstructive sleep apnea); Cervical paraspinal muscle spasm; B12 deficiencyStart: 07-10-2025 End: 00-16-4126qbqdnzujwmBNDF D BEJNot AvailableStart: 06-28-2025 End: 94-23-7025Fgvscw flowsPhoenix Chicas DPM Work Phone: noms CI PODIATRYStart: 06-28-2025 End: 07-63-1685Klnkvh flowsPhoenix Chicas DPM Work Phone: noms CI PODIATRYStart: 06-28-2025 End: 55-20-9753Ehuqlui encounter procedureBlaise Chicas DPM Work Phone: NOMS PODIATRYComment on above:Verruca plantaris (Primary Dx); Foot pain, right; Diabetes mellitus due to underlying condition with diabetic polyneuropathy, unspecified whether half-way insulin use (HCC); Pain due to onychomycosis of toenails of both feetStart: 06-28-2025 End: 55-00-0763ebfebrnovaTXSZETCO A BROWNNot AvailableStart: 06-18-2025 End: 27-69-4402tnlhycgbnaSOBHEM [facility] Start: 06-11-2025 End: 46-58-9767ngfgexxodsQVGSTWQW E PERRYFacility:EU BellevueStart: 06-11-2025 End: 75-82-8196Ksoupru encounter procedureJENNIFER E SHARA [facility] Alberto start: 05-28-2025 End: 88-07-3911alihicqclrMJOI [facility]: 62-19-8104Xtlccnqxqa and management of inpatientADAM [facility]tart: 18-96-0515Qjicsvvfwu and management of inpatientABHISHEK MASt. John of God Hospitaltart: 14-93-0727Fhtesuoqvf and management of inpatientGEORGE [facility]tart: 79-02-3849Avyaxrfbad and management of inpatientRAGHEB ASSALYSelect Medical [facility] Hospital - Dublintart: 17-72-3014Svdmyyizca and management of inpatientHANI SAADUniMadison Healthtart: 05-15-2025 End: 90-15-7190dccuulgmxoZSV [facility] Ohiotart: 91-06-1373Cwjbpbthrn and management of inpatientCONNIE [facility]: 24-15-4989Cjhcqlgmnm and management of inpatient NEDRA [facility]: 28-82-3246Iglgpctjeh and management of inpatientCONNIE [facility]tart: 53-46-9862Memgcsredr and management of inpatientBABAR [facility]tart: 05-10-2025 End: 60-18-5807Zqrckgpttm and management of inpatientMOHAMAD [facility]: 05-08-2025 End: 36-81-2011Cxrghx flowsheetFetresa Herron CREDIT ANALYSIS MANAGER Work Phone: noms BM NEUROLOGYStart: 05-08-2025 End: 56-55-5618Tfcvkd flowsheetFelicia Ericka Herron CREDIT ANALYSIS MANAGER Work Phone: noms NEUROLOGYStart: 05-08-2025 End: 29-41-4536Ngcaob outpatient visit 40 minutesFetresa Herron CREDIT ANALYSIS MANAGER Work Phone: noms SWS NEUR BComment on above:Benign essential tremor (Primary Dx); Neurogenic pain; Sequelae of cerebral infarction; Cervical paraspinal muscle spasm; JOSIAH (obstructive sleep apnea); Carotid stenosis, bilateral; PolyneuropathyStart: 05-08-2025 End: 17-01-2159xykgwdhondXBOJRRP C WINDNAGELNot AvailableStart: 04-30-2025 End: 39-44-7756ksdbktrmtsCCRYUE [facility] Start: 04-14-2025 End: 44-79-7318Fwrmppdijn and management of inpatientDO Ronkiker Mesha BEGUMKARTIK [facility] 04-14-2025 End: 77-76-2146Qobfjhzeb department patient visitDOBaylor Scott & [facility] Ambulatory PPGStart: 72-69-5336vyhatxorjnJYPBKHEBaylor Scott & [facility] Ambulatory PPGStart: 19-63-7806Ejhqkynjv department patient visitAstrit Sergio NancyariFacility:FTRANCHO SPRINGS MEDICAL CENTERtart: 04-14-2025 End: 84-66-6455Rurqzrfisa and management of inpatientRonobir R KARTIK [facility] Start: 04-12-2025 End: 23-34-1176Lwsoeh Maxine Chicas DPM Work Phone: noms CI PODIATRYStart: 04-12-2025 End: 55-25-3062Ippfvy Maxine Chicas DPM Work Phone: noms CI PODIATRYStart: 04-12-2025 End: 97-05-2774Kpcxwbg encounter procedureBlaise Chicas DPM Work Phone: noms CI PODIATRYComment on above:Verruca plantaris (Primary Dx); Foot pain, right; Diabetes mellitus due to underlying condition with diabetic polyneuropathy, unspecified whether longwall foreman insulin use ([facility]); Pain due to onychomycosis of toenails of both feetStart: 04-12-2025 End: 46-67-9294bvjqksjarmCZAWWMAK A BROWNNot AvailableStart: 04-10-2025 End: 11-11-1740Fdwykslissett Montoya MD Work Phone: noms BM NEUROLOGYStart: 04-10-2025 End: 01-54-9063Aallyrsharon Montoya MD Work Phone: noms NEUROLOGYStart: 04-10-2025 End: 88-99-0300Pyxrpi outpatient visit 25 minutesBarrie Montoya MD Work Phone: noms SWS NEUR BComment on above:Benign essential tremor (Primary Dx); Neurogenic pain; Sequelae of cerebral infarction; Cervical paraspinal muscle spasm; JOSIAH (obstructive sleep apnea); Carotid stenosis, bilateralStart: 04-10-2025 End: 00-24-7063bptquetucjGAXH D BEJNot AvailableStart: 03-12-2025 End: 13-76-8547eqrjrknzrpDQQUEY [facility] Start: 03-08-2025 End: 88-47-1180Lpdgrflissett Chicas DPM Work Phone: noms CI PODIATRYStart: 03-08-2025 End: 05-82-8475Hamthvlissett Chicas DPM Work Phone: noMS CI PODIATRYStart: 03-08-2025 End: 75-03-3207Nvubbr follow up visit related to original Jorge Chicas DPM Work Phone: noms CI PODIATRYComment on above:Verruca plantaris (Primary Dx); Foot pain, right; Diabetes mellitus due to underlying condition with diabetic polyneuropathy, unspecified whether half-way insulin use ([facility]); Pain due to onychomycosis of toenails of both feetStart: 03-08-2025 End: 06-62-3683fighyyvzoaYUKSUDTZ A BROWNNot AvailableStart: 02-28-2025 End: 06-09-2011whkiuwitycMOWANH [facility] Start: 97-66-2325nwuolbztkqRYGJZALBennett County [facility] Ambulatory PPGStart: 02-14-2025 End: 52-45-2120Elbbxpkzu department patient visitDOBaylor Scott & [facility] Ambulatory PPGStart: 01-03-2025 End: 55-90-4877tjcadevolwKPGFBZTriHealth McCullough-[facility] Hospitaltart: 12-14-2024 End: 73-16-7824fduzwzfidgOSFHSRCleveland Clinic Luther[facility] Hospital Start: 12-04-2024 End: 77-00-0752yxkrphpdegZIGBXRU NKANSAH-AMANKRAFacility:NAV Gardinertart: 12-04-2024 End: 47-05-1478Zpxlvnr encounter procedureMARQUIS LOUISE [facility] Start: 11-30-2024 End: 41-06-4337Qvtskllissett Chicas DPM Work Phone: noms CI PODIATRYStart: 11-30-2024 End: 20-65-3054Skifqrlissett Chicas DPM Work Phone: noms CI PODIATRYStart: 11-30-2024 End: 54-07-9342Jtqousu encounter Kady Cara Chicas DPM Work Phone: noms CI PODIATRYComment on above:Verruca plantaris (Primary Dx); Foot pain, right; Diabetes mellitus due to underlying condition with diabetic polyneuropathy, unspecified whether longwall foreman insulin use (CMS/HCC); Pain due to onychomycosis of toenails of both feetStart: 11-30-2024 End: 45-38-6708uiqipwpfgzBFTAPGCB A BROWNNot AvailableStart: 11-06-2024 End: 52-07-7750zrjydrijufNytmjxq R WATERSFacility:EU tart: 11-06-2024 End: 16-61-8400Ehfokmm encounter procedureMejia SINGH [facility] start: 11-02-2024 End: 03-23-2919zmygrajvkjMWROAON NKJILLIAN-AMJOVANIRAFacility:EU kStart: 11-02-2024 End: 79-16-6666Vegyhzd encounter procedureKMUNDO NEELY-AMANKRA [facility] Start: 10-30-2024 End: 42-38-6914fumsjklwyjUikfohg R WATERSFacility:CD:[id number]: 10-25-2024 End: 24-45-4489hveeflxfvhUZQLSWG NKANSAH-AMANKRAFacility:EU BellueStart: 10-23-2024 End: 79-98-8162htiseimpeiOGDGSXN NKANSAH-AMANKRAFacility:FTMCStart: 10-23-2024 End: 00-79-3439Gkbtdvd encounter procedureKMUNDO NKANSAH-AMANKRA [facility] Start: 10-02-2024 End: 50-13-7943wzbrxwqwssLFUNOZA NKANSAH-DAYSIFacility:EU NorwalkStart: 09-25-2024 End: 37-44-6306byobhdyllvTWEXZGR NKNEELAEMMY-QIANFacility:FTMCStart: 09-25-2024 End: 54-60-2752Hazpsdl encounter procedureMADDYRANDA NEELY-QIAN [facility] Start: 09-14-2024 End: 20-00-2539Lxghvg Maxine Chicas DPM Work Phone: noms CI PODIATRYStart: 09-14-2024 End: 82-97-3233Vfumlk Maxine Chicas DPM Work Phone: noms CI PODIATRYStart: 09-14-2024 End: 76-56-9343Fstpazi encounter procedureBlaise Chicas DPM Work Phone: noms CI PODIATRYComment on above:Verruca plantaris (Primary Dx); Foot pain, right; Diabetes mellitus due to underlying condition with diabetic polyneuropathy, unspecified whether longwall foreman insulin use ([facility]); Pain due to onychomycosis of toenails of both feetStart: 09-14-2024 End: 74-57-8211vypxqodfaeBCSCYBLZ A BROWNNot AvailableStart: 08-24-2024 End: 03-66-3525Qpsrop Gabino Joy MD Work Phone: noms SWS DERMStart: 08-24-2024 End: 20-48-7001Orgvyclissett Joy MD Work Phone: noms SWS DERMStart: 08-24-2024 End: 31-93-3216Riodyi outpatient visit 15 minutesEmviviane Joy MD Work Phone: NOGL SWS DERMComment on above:Melanocytic nevus of trunk (Primary Dx); Actinic keratosis; Lentigines; Seborrheic keratosisStart: 08-24-2024 End: 76-47-4387erfwqvanrbDIOBX A PETITTINot AvailableStart: 62-02-8523vgiodyxnzg MARQUIS NKANSAH-AMANKRAFacility:EU NorwalkStart: 91-40-6111baksmwezvgLZZYCDP NKANSAH-AMANKRAFacility:EU [place]uskyStart: 08-14-2024 End: 71-72-7250Cxbosaifv encounterBarrie Montoya MD Work Phone: noms [facility] NEURO 111Start: 08-08-2024 End: 22-04-5243cbzpxjxctcPXHVEVZ NKANSAH-AMANKRAFacility:EU NorkStart: 08-08-2024 End: 32-39-5277Ivhqdvm encounter procedureKSAWYERALMA DELIARANDA REINOSOAH-AMANKRA [facility] Start: 08-03-2024 End: 51-40-4744Eadfqz flowsheetNicholas A Brown DPM Work Phone: NOLZ CI PODIATRYStart: 08-03-2024 End: 49-07-5029Xzataq flowsheetNicholas A Brown DPM Work Phone: noms CI PODIATRYStart: 08-03-2024 End: 33-35-5030Gxiqpxr encounter procedureNicholas A Brown DPM Work Phone: noms CI PODIATRYComment on above:Verruca plantaris (Primary Dx); Foot pain, right; Xerosis cutisStart: 08-03-2024 End: 41-97-1648arforbphxdZTWPKTFD A AVIVANot AvailableStart: 08-01-2024 End: 81-22-5280Gmdvhn flowsheetBarrie Montoya MD Work Phone: NOMS BM NEUROLOGYStart: 08-01-2024 End: 71-09-1380Dizezy Kemi Montoya MD Work Phone: noms BM NEUROLOGYStart: 08-01-2024 End: 05-00-1820Axpzei outpatient visit 25 minutesBarrie Montoya MD Work Phone: noms SWS NEUR BComment on above:Neurogenic pain (Primary Dx); Benign essential tremorStart: 08-01-2024 End: 04-84-0479antydbmupcTEND D BEJNot AvailableStart: 07-20-2024 End: 63-44-5122Jelwby flowsheetNicholas A Brown DPM Work Phone: noms CI PODIATRYStart: 07-20-2024 End: 63-85-9835Hjbylk flowsheetNicholas A Brown DPM Work Phone: noms CI PODIATRYStart: 07-20-2024 End: 73-14-2696Mflxypm encounter procedureNicholas A Brown DPM Work Phone: noms CI PODIATRYComment on above:Verruca plantaris (Primary Dx); Foot pain, right; Xerosis cutisStart: 07-06-2024 End: 34-74-4665Vzptka flowsheetNicholas A Brown DPM Work Phone: noms CI PODIATRYStart: 07-06-2024 End: 74-23-9101Hykwrn flowsheetNicholas A Brown DPM Work Phone: noms CI PODIATRYStart: 07-06-2024 End: 05-53-0825Pkjvvl outpatient visit 15 minutesNicholas A Brown DPM Work Phone: noms CI PODIATRYComment on above:Xerosis cutis (Primary Dx); Verruca plantaris; Foot pain, right; Diabetes mellitus due to underlying condition with diabetic polyneuropathy, unspecified whether longwall foreman insulin use ([facility]); Onychomycosis; Toe pain, bilateralStart: 10-14-2023 End: 83-21-9078Vxcajlb encounter procedureBeth A Aptricia [phone]-JuxuxSelect [facility] Start: 10-01-2023 End: 58-46-5220Jfdjfle encounter procedureBeth A Patricia [facility] Start: 10-01-2023 End: 88-45-8833Jbbmygv encounter procedureBeth A Patricia [phone]-NqoxsSelect [facility] Start: 09-13-2023 End: 89-20-0813Dqpdynn encounter procedureBeth A Patricia 155-0022Fzwvdo-KyievSelect Medical [facility] Start: 06-10-2023 End: 68-56-8246Ruthdiv encounter procedureBeth A Protein Bar [phone]-KkxdsSelect [facility] Start: 04-15-2023 End: 65-36-6067Rnj Drop offBeth A Protein Bar [facility] Start: 04-13-2023 End: 43-78-1770Wvwpfdu encounter procedureBeth A Patricia [phone]-NtjhsSelect [facility] Start: 03-24-2023 End: 38-36-4773hthmrbbytyDI RUTHIE Kowalskicility:Y6Hxlzz: 02-27-2023 End: 41-69-9855lsjugjqsznBU VAN YOUSSEF .Facility:F4Wknvm: 12-28-2022 End: 19-71-7465sndhybbjzqKG RUTHIE LINDAFacility:G8Zblbw: 11-16-2022 End: 04-59-3840mzhonwmenkVI DINKAR KAWFacility:G0Owjkx: 11-02-2022 End: 98-24-6679dwocbifxulAB DOUGLAS HOY .Facility:N1Dziod: 07-18-2022 End: 98-10-0681Pvjdwiirst and management of inpatientDR VAN YOUSSEF .Facility:H1 Start: 07-13-2022 End: 00-65-9383enbydvewsxBB DOUGLAS HOY .Facility:U5Print: 07-01-2022 End: 61-77-4239djtsqimslxPY GEORGE MOUKARBELFacility:M1Sqvei: 06-16-2022 End: 58-66-3136snhkasoyevAA DOUGLAS HOY .Facility:E9Jsssb: 06-09-2022 End: 38-23-1454Vpvmymx encounter procedureNereyda Gomez [phone]-WksjtSelect [facility] Start: 06-08-2022 End: 63-58-0518uamnmodkdsJTQZZOWQ ALIFacility:D6Ptllz: 05-11-2022 End: 66-48-1405Skoxynx encounter procedureMaher SALAM [facility] Start: 04-28-2022 End: 52-29-8360slokrkxbheJF DOUGLAS HOY .Facility:R0Allis: 03-31-2022 End: 04-96-2492Dcxzoxs encounter procedureNereyda Gomez [phone]-QryxsSelect [facility] Start: 2019 End: 28-42-7035Leofwxd encounter procedureDEFAULT PHYSICIANFacility:[facility] Procedures DateProcedureProcedure DetailPerforming ClinicianStart: 95-75-2975WVAKPNSVHBJ SKIN LESIONEmily Cara Joy MD Work Phone: Start: 54-71-0899KkugrtbkhpyDespk SALAM Comment on above:2 polyps, diveticulosis, IHStart: 16-62-0663GfiunrarruazpWakb Steinmetz Back structure, excluding neck (body structure)Nereyda Gomez CholecystectomyNereyda Gomez ColonoscopyNereyda Gomez History of hernia repairBeonofre Gomez TonsillectomyNereyda Gomez Plan of Treatment DateCare ActivityDetailAuthorStart: 10-09-2025 End: 34-43-5847Agmwjia encounter procedureNOMS SWS NEUR BStart: 09-20-2025 End: 17-02-9954Hepmatm encounter booxyxvkg84/06/2025 11:40 AM EST Office Visit [facility]Y [facility] [address] [facility] [address] [place] [address] Blaise Chicas DPM [address] [facility] [address] [place] [address] NOMS CI PODIATRYStart: 09-18-2025 End: 46-98-6383Yltrbre encounter ugenmkjox15/04/2025 12:30 PM EST Office Visit NOMS [facility]y [facility] [address] [facility] [address] [place] [address] Barrie Montoya MD [address] [facility] [address] [place] [address] NOMS Rafy [facility] Neurology Start: 09-11-2025 End: 47-70-9177Kclfydi encounter procedureNOMS SWS DERMStart: 08-23-2025 End: 40-82-5421Dxhxxvt encounter /09/2025 10:50 AM EDT Office Visit [facility]S SWS DERM [address] [place] [address] Rodney Joy MD [address] [place] [address] NOMS SWS DERMStart: 04-13-9442Tgmuzjlyo vaccination Influenza Vaccine (#1)NOMS HealthcareStart: 07-10-2025 End: 63-30-5418Qciumrk encounter procedureNOMS SWS NEUR BComment on above: ArrivedStart: 06-28-2025 End: 14-90-0403Oauesjy encounter ddphrpeiz80/14/2025 11:50 AM EDT Office Visit [facility] CI PODIATRY [address] [facility] [address] [place] [address] Blaise Chicas DPM [address] [address] Verruca plantaris (Primary Dx); Foot pain, right; Diabetes mellitus due to underlying condition with diabetic polyneuropathy, unspecified whether half-way insulin use (HCC); Pain due to onychomycosis of toenails of both feetNOMS CI PODIATRYComment on above:Verruca plantaris (Primary Dx); Foot pain, right; Diabetes mellitus due to underlying condition with diabetic polyneuropathy, unspecified whether longwall foreman insulin use (HCC); Pain due to onychomycosis of toenails of both feetStart: 06-21-2025 End: 42-25-3338Oehzjup encounter fnreqgsjh25/07/2025 10:40 AM EDT Office Visit [facility] CI PODIATRY [address] [address] Blaise Chicas DPM [address] [address] NOMS CI PODIATRYStart: 05-08-2025 End: 01-92-1794Gjqcjpb encounter lfxnedovh14/24/2025 2:00 PM EDT Office Visit [facility] B [address] [facility] [address] [place] [phone] Mony Herron, CREDIT ANALYSIS MANAGER [address], [facility] [address] [place] [address] ArrivedNOMS SWS NEUR BComment on above: ArrivedStart: 04-12-2025 End: 19-02-1113Mychdbe encounter procedureNOMS CI PODIATRYComment on above: Verruca plantaris (Primary Dx); Foot pain, right; Diabetes mellitus due to underlying condition with diabetic polyneuropathy, unspecified whether longwall foreman insulin use (CMS/HCC); Pain due to onychomycosis of toenails of both feetStart: 03-08-2025 End: 13-75-0109Ldklnql encounter wgrbevouy96/24/2025 9:20 AM EDT Office Visit [facility] CI PODIATRY [address] [address] Blaise Chicas DPM [address] [address] Verruca plantaris (Primary Dx); Foot pain, right; Diabetes mellitus due to underlying condition with diabetic polyneuropathy, unspecified whether half-way insulin use (CMS/HCC); Pain due to onychomycosis of toenails of both feetNOMS CI PODIATRYComment on above:Verruca plantaris (Primary Dx); Foot pain, right; Diabetes mellitus due to underlying condition with diabetic polyneuropathy, unspecified whether half-way insulin use (CMS/HCC); Pain due to onychomycosis of toenails of both feetStart: 02-15-2025 End: 80-74-0375Yxunxhg encounter fmiepfazr20/03/2025 8:40 AM EDT Office Visit [facility] CI PODIATRY [address] [phone] Blaise Chicas DPM [address] [address] NOMS CI PODIATRYStart: 11-30-2024 End: 09-27-4845Strdskq encounter procedureNOMS CI PODIATRYComment on above: Verruca plantaris (Primary Dx); Foot pain, right; Diabetes mellitus due to underlying condition with diabetic polyneuropathy, unspecified whether longwall foreman insulin use (CMS/HCC); Pain due to onychomycosis of toenails of both feetStart: 10-10-2024 End: 49-55-1745Uxlbhcl encounter byuzlkvxb59/26/2024 10:45 AM EST Office Visit [facility] [address] [phone] Barrie Montoya MD [address] [address] [facility] NE[facility] BStart: 09-14-2024 End: 44-78-4864Vcakzai encounter procedureNOMS CI PODIATRYComment on above: Verruca plantaris (Primary Dx); Foot pain, right; Diabetes mellitus due to underlying condition with diabetic polyneuropathy, unspecified whether longwall foreman insulin use (CMS/HCC); Pain due to onychomycosis of toenails of both feetStart: 08-24-2024 End: 39-88-9786Zevfzrj encounter procedureNOMS SWS DERMComment on above:Arrived Start: 08-03-2024 End: 72-45-2228Pzcsszr encounter procedureNOMS CI PODIATRYComment on above: Verruca plantaris (Primary Dx); Foot pain, right; Xerosis cutisStart: 08-01-2024 End: 80-57-1626Pszunie encounter vgshdgqty50/17/2024 1:30 PM EDT Office Visit [facility] [address] [phone] Barrie Montoya MD [address] [address] N[facility]S [facility] NEUR BStart: 08-01-2024 End: 30-76-4929Cjinols encounter rvayiwwru94/17/2024 11:30 AM EDT Office Visit [facility] [address] [phone] Barrie Montoya MD [address] [address] ArrivedNOMS SWS NEUR BComment on above:ArrivedStart: 07-20-2024 End: 02-12-2688Zmjxbkg encounter procedureNOMS CI PODIATRYComment on above: Verruca plantaris (Primary Dx); Foot pain, right; Xerosis cutisStart: 72-99-3694Ziqyquaax vaccinationInfluenza Vaccine (#1)NOMS HealthcareStart: 07-06-2024 End: 04-54-6215Cqqifwt encounter cdmyaoitq18/22/2024 8:40 AM EDT Office Visit [facility] CI [facility] [address] [facility] [address] [place] [address] Blaise Chicas DPM [address] [facility] [address] [place] [address] Verruca plantaris (Primary Dx); Foot pain, right; Diabetes mellitus due to underlying condition with diabetic polyneuropathy, unspecified whether half-way insulin use (CMS/HCC); Onychomycosis; Toe pain, bilateral; Xerosis cutisNOMS CI PODIATRYComment on above:Verruca plantaris (Primary Dx); Foot pain, right; Diabetes mellitus due to underlying condition with diabetic polyneuropathy, unspecified whether longwall foreman insulin use (CMS/HCC); Onychomycosis; Toe pain, bilateral; Xerosis cutis Immunizations Immunization DateImmunizationNotesCare WvlraoohEyrijtjo47-01-0667vfehob vaccine recombinantJENNIFER SHARA [facility]10-01-2024influenza virus vaccine, unspecified formulationBlaise Chicas DPM Work Phone: [facility] CenterNkuuqnxmay20-34-9749SWG vaccine, preF A-preF B, recombinantJENNIFER SHARA [facility]10-06-2023influenza virus vaccine, unspecified formulationBlaise Chicas DPM Work Phone: [facility] CenterAgkiyauwef50-14-9688UNWE-FeD-3 (COVID-19) mRNAMUL.ORD![id number] Gomez [phone]-AuptlMercer County Community Hospital HealthComment on above:Result Comment: 2023-04-13: [id number] (COVID-19) mRNA BNT- 162b2 vaCortria Corporationeth Patricia [phone]-GcuodCorey Hospital02-17-2021 SARS-CoV-2 (COVID-19) mRNA BNT-162b2 vaCortria Corporationeth Patricia [phone]-HttydCorey Hospital01-25-2021 SARS-CoV-2 (COVID-19) mRNA BNT-162b2 vaCortria Corporationrobbie Patricia [phone]-VcjvuCorey Hospital12-23-2020 zoster vaccine recombinantJENNIFER SHARA [facility]10-13-2020influenza virus vaccine, unspecified formulationBeth Protein Bar [phone]-HtadaCorey Hospital12-16-2019 tetanus toxoid, reduced diphtheria toxoid, and acellular pertussis vaccine, adsorbedJENNIFER SHARA [facility]12-16-2019zoster vaccine recombinantJENNIFER SHARA [facility]10-02-2017pneumococcal conjugate vaccine, 13 valentBeth Patricia [phone]-PenjtCorey Hospital09-21-2017 influenza, unspecified formulationBeth Patricia [phone]-[facility]nzzaCorey [facility]11-06-2015 zoster vaccine, liveBeth Patricia [phone]-[facility] Digest[facility] HealthNEGATED: Highlighted row has not occurred!02-89-1794dhfnrppeb virus vaccine, unspecified formulationNereyda Gomez [phone]-FvrsgSelect [facility] Dig[facility] HealthNEGATED: Highlighted row has not occurred!52-11-3456fwgkkbnyp virus vaccine, unspecified formulationNereyda Gomez [phone]-LrtrsSelect [facility] Payers DatePayer CategoryPayerPolicy [id number] Health Insurance [id number] [id number] [id number] [id number] 2..840.1.099918.3.579.2.88299-68-5753Hgnpdqj8001956 2.840.1.531874.3.579.2.11100-83-9867Lfzxagq4808123 2.16840.1.683557.3.579.2.30711-90-3822Futxdmv2729162 2.16.840.1.949186.3.579.2.41041-59-7703Ygphynh1864100 2.16840.1.915497.3.579.2.20649-01-2395Honisrg2838516 2.16.840.1.728554.3.579.2.43027-10-8986Sxeodoz2550085 2.16.840.1.719406.3.579.2.58679-56-3798Yzfokxq1960039 2.16.840.1.164382.3.579.2.35356-01-3861Htyzahl6153164 2.16.840.1.909407.3.579.2.62813-14-4544Mwhsffb6952500 2.16.840.1.446740.3.579.2.53666-19-2711Ogxbems1306894 2.16.840.1.514399.3.579.2.40496-15-1600Lktznln2888710 2.16.840.1.584008.3.579.2.21325-35-6885Cpdvcxu71389516 2.16840.1.636589.3.579.2.73535-50-2905Trbvhra66307891 2.16840.1.362062.3.579.2.44507-94-3243Ltxijxw41628424 2.16840.1.180901.3.579.2.53918-31-0925Oesrirq36234471 2.16840.1.018837.3.579.2.33242-95-6006Unpxaiw51857191 2.16840.1.629870.3.579.2.17716-91-8114Scrwlmo505856220 2.16840.1.348866.3.579.2.552264-74-5421Hkqyibv833839135 2.16840.1.347077.3.579.2.389027-94-8648Hyhktyg621528053 2.16840.1.449215.3.579.2.323788-11-6750Wotpiyb954845115 2.16840.1.283274.3.579.2.673574-23-8464Phtwjpx536919432 2.16840.1.374470.3.579.2.243292-73-7213Hwfyfve525666202 2.16.840.1.008442.3.579.2.769420-72-1235Genvhlo171711727 2.16840.1.032840.3.579.2.388352-06-6772Hxbenxm801261589 2.16840.1.926955.3.579.2.241218-02-1822Arontjo168561908 2.16840.1.704058.3.579.2.942865-97-2877Ctzrmhc09159249 2.16840.1.699441.3.579.2.93475-64-6147Omvvgpb27531629 2.16840.1.155757.3.579.2.71716-14-0416Ovdqeto24644296 2.840.1.009160.3.579.2.40646-38-9022Uosgoas10578899 2.16840.1.228186.3.579.2.83972-92-5894Ybtflmh16557173 2.16840.1.094334.3.579.2.55263-83-7148Zvebjzj64231693 2.16840.1.464581.3.579.2.05877-11-4342Bsibzff19845998 2.16840.1.002230.3.579.2.39807-69-7546Wbudoir35587682 2.16840.1.692805.3.579.2.58087-18-0433Ldxcams20665418 2.16840.1.743710.3.579.2.32329-09-9431Dkzwwav42934984 2.16840.1.859848.3.579.2.43384-08-9112Fbaekmg29118539 2.16840.1.698239.3.579.2.88397-97-9797Dtzdqux09901871 2.16840.1.798647.3.579.2.60244-60-1075Kibvngu12787984 2.160.1.522843.3.579.2.56511-48-4442Atzngog12997204 2.16840.1.586267.3.579.2.35197-46-1041Esnlbhw85786951 2.0.1.309073.3.579.2.79152-60-7698Pkmqrww31304959 2.0.1.752759.3.579.2.785201-32-6665Levrslc08529893 2.0.1.648459.3.579.2.861368-45-8056Zryrfjp25916284 2.0.1.646406.3.579.2.021478-03-8994Fazvjxi89393361 2.0.1.279461.3.579.2.908203-53-8497Fswtaei1288038 2.0.1.345131.3.579.2.519388-20-9528Dwbbfma3717510 2.0.1.376320.3.579.2.390588-98-9652Zjwzwup5060925 2.0.1.125618.3.579.2.839907-50-8180Eiiumeq9869166 2.840.1.484478.3.579.2.117670-88-7357Cgohrqk8320541 2.840.1.261664.3.579.2.569715-39-1365Lqtquwn9225110 2.16.840.1.781132.3.579.2.503600-15-0658Gzjqkzk4284774 2..840.1.001803.3.579.2.319712-69-4751Msfuimg4890466 2.16.840.1.797150.3.579.2.1259 Social History DateTypeDetailFacilityStart: 03-31-2022 End: 95-53-4899Nmrmnvg smoking statusEx-smoker (finding)[facility] Start: 94-01-7596Bredbbq smoking statusNeverParkview Health [facility] Start: 08-24-2024 End: 10-93-2306Msj Assigned At BirthMalOhioHealth [facility] Start: 54-84-5246Byrjlmv smoking status NHISTobacco smoking consumption unknownNOMS HealthcareStart: 08-03-2024 End: 62-21-5222Decmblrvs beverage intakeLifetime non-drinker (finding)[facility] HealthcareStart: 33-49-6987Rqbcpem Commentcaffeine 1-2 cups/dayNOMS Healthcare Start: 18-29-5669Zzo assigned at birthNot on fileNOMS HealthcareHistory of tobacco useCurrent smokerNOMS HealthcareHistory of tobacco useCigarette Smoker [facility] HealthcareStart: 13-81-3668Jxdfpuy use and exposureSmokeless tobacco non-userNOMS HealthcareStart: 08-24-2024 End: 91-05-7638Fzbivmz of Social functionNOMS HealthcareSexual [facility] Start: 01-54-0923WbsXbet (finding)[facility] Functional Status CgveLimelvpkkxUmqpffGgoxeetu39-54-8645Gyswurcvqj StatusN/AExecutive [facility] of [facility] Zkrciml01-74-0497Jcqkwlmltg StatusN/AExec[facility] of [place] 737582-09-2024Functional StatusN/A [facility]11-11-2024Functional StatusN/[facility]09-24-2024Functional StatusN/AExec[facility] of [place] 737581-30-2023Functional StatusN/[facility] Dig[facility]ive Enzftq38-17-6555Cnhhvyvvsc StatusNoFishGenesis Hospital Digestive Fjuczs23-84-8887Skjvmgaabh StatusN/[facility] Digestive Jhohpa65-86-4058Tvtwnlbpsh StatusN/[facility] 06821712-14-0702Ygcnouydqd StatusN/[facility] Clinical Notes 03-31-2022 to 08-23-2025 Note Date & JdpmUzdbUvjigaal10-92-2032 Telephone encounter Note* Telephone Encounter - Sammy Esposito - 08/23/2025 10:48 AM EDT Radha called and advised of message, she took verbal order from me. [facility] CenterCxohshdfrd02-29-0663 Miscellaneous Notes* Telephone Encounter - Sammy Esposito - 08/23/2025 [...] extended living and asked I call mgr Garcia . for Radha asking for RC to let us know where to send orders. documented in this encounterSt. Joseph Medical CenterWuvlldlcwk13-97-8287 Telephone encounter Note* Telephone Encounter - Claritza Nam MA - [...] Radha's extended living and asked I call mgmesha Garcia .LM for Radha asking for RC to let us know where to send orders. [facility] CenterUhnxxxzgwq30-82-7229 [facility] Patient: Nadir Beth; 85 y.o. Visit date: 08/01/25 Reason for today's visit: Follow up for CKD stage 3, Hypertension, Edema/ Fluid overload, and Electrolytes disturbances SUBJECTIVE: BACKGROUND: Nadir Beth is a 85 y.o. male has a past medical history of Abnormal ECG, Arrhythmia, Atrial fibrillation ([facility]), CHF (congestive heart failure) ([facility]), Chronic kidney disease, COPD (chronic obstructive pulmonary disease) ([facility]), Coronary artery disease, Diabetes mellitus ([facility]), Heart valve disease, Hypertension, Pericardial effusion, Sleep apnea, and Stroke ([facility]). History of paroxysmal atrial fibrillation maintained on anticoagulation with Eliquis, aortic stenosis, renal artery stenosis, and hypertension. He had stenting of the left renal artery from the left radial approach on 05/01/2015 (Express SD 6 mm x 18 mm stent). [facility] due to hyponatremia, hyperkalemia and acute kidney injury, leukocytosis secondary to COVID-19 causing dehydration Today 08/01/25 patient presents for a follow-up visit: Patient presents for a follow up visit. He feels well today. 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 He is recovering with help of PT and OT. He underwent a Urolift procedure. He is currently urinating well without difficulty. No blood in the urine. Blood pressure is 150/67 mm of Hg in clinic today. He reports his blood pressure at home 130/70 to 140/80 mmHg. Blood pressure & heart rate: Visit Vitals BP 150/67 (BP Location: Left arm, Patient Position: Sitting, BP Cuff Size: Large adult) Pulse 75 He takes He takes Labetalol 300 mg tid, Clonidine 0.1 mg bid, He also takes Tamsulosin 0.4 mg daily. He takes Furosemide 40 mg twice a day. Hydralazine was discontinued after he was noted to have pericardial effusion per Cardiology. OBJECTIVE: Visit Vitals BP 150/67 (BP Location: Left arm, Patient Position: Sitting, BP Cuff Size: Large adult) Pulse 75 Ht 1.829 m (6') Wt 80 kg (176 lb 6.4 oz) BMI 23.92 kg/m??? Smoking Status Former BSA 2.02 m??? Physical Exam Constitutional: General: He is [...] and oriented to person, place, and time. Motor: Weakness present. Psychiatric: Mood and Affect: Mood normal. Behavior: Behavior normal. Recent Labs I have reviewed the patient's most recent labs as listed below: Labs done on 07/17/2025 reviewed: Hb 10.3, Glucose 159, BUN 39, Serum Creatinine 1.67, Na 145, K 4.5, Ca 9.3, Phos 3.6, Mg 1.9, bicarb 27.7, Albumin 3.5, Lover function tests normal, HbA1c 8.0%, Vitamin D 34.1 ng/mL, Urine Protein / Creatinine ratio 0.19 Labs done on 12/22/2024 reviewed: Hb 12.1, [...] Home medications Outpatient Encounter Medications as of 08/01/2025 Medication Sig Dispense Refill acetaminophen (Tylenol) 500 mg tablet Take 1,000 mg by mouth every 6 (six) hours if needed for mild pain (1-3 pain score). acyclovir (Zovirax) 400 mg tablet Take 1 tablet twice a day by oral route for 30 days. (Patient taking differently: Take 400 mg by mouth three times daily.) aspirin 81 mg EC tablet Take 81 mg by mouth in the morning. b complex vitamins capsule Take 1 capsule by mouth in the morning. calcium polycarbophil (Fibercon) 625 mg tablet Take 1,250 mg by mouth in the morning. cholecalciferol (Vitamin D3) 25 MCG (1000 UT) capsule Take 5 capsules (125 mcg) by mouth in the morning. 150 capsule 11 cloNIDine (Catapres) 0.2 mg tablet Take 0.2 mg by mouth three times daily. dicyclomine (Bentyl) 10 mg ca (more content not included)...[facility]09-15-2025 NotePHARMACIST CONSULT - REFERRAL 07/31/25 Referring Provider: Ruy Sullivan CNP Clinic: [facility] Nadir Beth is referred to clinic pharmacists for question about interaction between primidone and Xarelto due to CY/P-gp induction. Primidone interacts with apixaban and rivaroxaban, but not edoxaban. Primidone decreases INR when used with warfarin. It appears that the patient tried going off of primidone, but found tremor to be too bothersome. Neurology also considered topiramate per notes, but hesitant due to patient's renal function (stage 3 kidney disease). Patient is already on labetalol - propranolol would not be indicated. CrCl is 31 mL/min. Discussed with patient's daughter, he has tried gabapentin previously, and it made him very drowsy. Patient has been off primidone, and his daughter notes that the tremor has become bothersome. She also states that his stroke occurred while he was actively taking both primidone and rivaroxaban. Given this, anti-Xa monitoring would likely not be clinically indicated. Given his age and renal function, topiramate would likely cause side effects, even with dose reduction. Patient is currently taking primidone 50 mg daily per patient's daughter Recommend considering edoxaban 30 mg once daily (adjusted based on renal function) if insurance will cover. Consider warfarin if edoxaban is not feasible. Electronic order received from patient's cardiology provider. Will call patient to schedule. Huong Jean PharmD [facility] 07/31/25[facility]09-15-2025 NoteReferring provider agrees with trying edoxaban. Called patient's daughter and conveyed plan, including how to switch between medications. She asked that medication be sent to the [facility] in [place], [place]. She also provided the phone number for the patient's retail event coordinator, Radha [[phone]]. Provided instructions for switching between medications. Provided clinic phone number in case of questions or coverage issues. Huong Jean PharmD [facility] 08/03/25 8:37 AMUn[facility]09-15-2025 NotePatient's daughter called to clarify if edoxaban was safe with his aortic valve and kidney disease. Reassured her that the medication had been dose-adjusted for kidney function and that it is safe for his heart valve (patient is s/p TAVR, has no mitral valve stenosis). Huong Jean PharmD [facility] 08/03/25 10:37 [facility]09-15-2025 NotePA was approved through 11/14/25. Called pharmacy and notified them - they will order medication. Huong Jean PharmD [facility] 08/07/25 1:[address] [facility]09-15-2025 NoteReceived phone call from the [facility] that patient's edoxaban will require PA. Preferred meds (apixaban and rivaroxaban) are not options due to drug interaction, will need to switch to warfarin if PA is not successful. Cover My Meds stephenson: T1OMOILT Routing to Private Outlet for completion. Huong Jean PharmD [facility] 08/03/25 10:45 [facility]09-15-2025 NoteCalled Radha (retail event coordinator) and she confirmed that edoxaban was picked up and started yesterday (08/09/25). They have discontinued and discarded the Xarelto. He is tolerating the edoxaban well, and they have no further questions. Will follow for labs in 2 months. Huogn Jean PharmD [facility] 08/10/25 10:53 [facility]09-15-2025 NoteSUBJECTIVE Reason for Visit: Nadir Beth is a 85 y.o. year old male patient being seen for follow-up appointment. HPI: Nadir Beth is a 85 y.o. year old male with significant medical history of A-fib on Xarelto, hypertension, HFpEF, CKD, recent history of CVA 4 months back, renal artery stenosis [facility] on chronic heart failure. Patient had history of stroke 4 months back and was in rehab patient has been having progressive lower extremity edema for few days. Patient was advised to increase his Lasix from 20 to 40 mg and blood work was done which showed BNP 6214 and was advised to go to the ED. In [place] [facility] chest x-ray showed pulmonary vascular congestion [...] subsequently sent home on 30-day event monitor. 07/30/2025 office visit: Patient was seen and evaluated in the office today for a follow-up visit. Coming from assisted living. Denies chest pain, shortness of breath, palpitations, lightheadedness or dizziness. Endorses lower extremity swelling, but patient and reports this is much improved from prior visit. He has +1-2 lower extreme edema on exam. He is scheduled with his ramp service employee this week. 06/18/2025 office visit (Dr. Cisneros): He has been having worsening lower extremity swelling and review of his weight log shows increase in weight to around 184 over the past few days. Dr. Van Youssef increased his furosemide to 40 mg twice daily. There has been improvement in the swelling but still is present. Otherwise he denies chest pain and palpitations. He has mild shortness of breath on exertion NYHA class II symptoms. He continues to use a walker to assist with ambulation. He is doing well after the TAVR procedure. He did develop a left bundle branch block that seems to have persisted. He just returned the event monitor and we will review the results when available. He continues to be at the [facility] for rehab. I will continue current medications including aspirin and Xarelto, Due to his longstanding persistent atrial fibrillation and repeated strokes. I discussed with him and his family members that we will revisit appendage occlusion procedure in the near future. For now we will let him recover from the recent TAVR procedure. He has been having increase in weight and lower extremity edema. Currently on furosemide 40 mg twice daily and spironolactone 25 mg once daily. I will have him increase furosemide to 60 mg twice daily for the next 5 days and then back to 40 mg twice daily. Continue the rest of the medications. I will check a BMP in 2 weeks. I am also providing him with amoxicillin for endocarditis prophylaxis prior to dental procedures. Hypertension: Blood pressure is mildly elevated. I believe this will improve with further diuretic therapy. CAD: Nonobstructive by recent cardiac catheterization 2024. Continue aspirin and Leqvio and ezetimibe. Pericardial effusion: This was present previously but continues to be present on the most recent echo and is mild to moderate in size. Medical History[1] Surgical History[2] Problem List[3] family history includes Coronary artery disease in his father. Social History[4] OBJECTIVE Visit Vitals Smoking Status Former Physical Exam Constitutional: General Appearance: well-developed, appears stated age. Level of Distress: no acute distress. Neck: Jugular Veins: normal jugular venous pressure. Lungs: Auscultation: no rales or rhonchi and normal breath sounds. Cardiovascular: Rate And Rhythm: regular Heart Sounds: normal S1 and s2; Systolic Murmur: not heard. Diastolic Murmur: not heard. Extremities: +1-2 LE edema. Peripheral Pulses: Pulses: full and equal in all extremities except if noted. Abdomen: Inspection and Palpation: non distended or tender and soft. Musculoskeletal: Inspection: no joint tenderness or swelling. Neurologic: Gait: normal gait. Psychiatric: Mental Status: alert and normal affect. Skin: Inspection and Palpation: warm and dry. Allergies: Allergies[5] Outpatient Medications: Current Outpatient Medications Medication Instructions acetaminophen (TYLENOL) 1,000 mg, Every 6 hours PRN acyclovir (Zovirax) 400 mg tablet Take 1 tablet twice a day by oral route for 30 days. amoxicillin (AMOXIL) 2,000 mg, oral, Once as needed aspirin 81 mg, Daily b complex vitamins capsule 1 capsule, Daily calcium polycarbophil (FIBERCON) 1,250 mg, Daily cholecalciferol (VITAMIN (more content not included)...[facility]09-12-2025 History of Present illness Narrative* Barrie Montoya MD - 07/27/2025 12:45 PM EDTAssociated Problem(s): Tremor Explained to pt & family that mere [...] adjust up the rivaroxaban dose to compensate. * Barrie Montoya MD - 07/27/2025 12:45 PM EDTAssociated Problem(s): Neurogenic pain (Continue current regimen.) * Barrie Montoya MD - 07/27/2025 12:45 PM EDTAssociated Problem(s): Carotid stenosis, bilateral Plan redo CTA neck 2026 (US carotids is underestimating stenosis). * Barrie Montoya MD - 07/27/2025 12:45 PM EDTAssociated Problem(s): Sequelae of cerebral infarction (Anticoag managed by cardiology.) * Barrie Montoya MD - 07/27/2025 12:45 PM EDTAssociated Problem(s): JOSIAH (obstructive sleep apnea) [Family prev requested that this office take over JOSIAH.] Split-night study ([facility] [place]), split for AHI >= 5. - not contacted, please check on. Afterward, will need new machine, supplies, etc. Download 1 mo then before appt. * Barrie Montoya MD - 07/27/2025 12:45 PM EDTAssociated Problem(s): B12 deficiency --- partially or fully due to PPI. (Continue B12 injections.) * Barrie Montoya MD - 07/27/2025 12:45 PM EDTAssociated Problem(s): Cervical paraspinal muscle spasm PT when/if needed. * Barrie Montoya MD - 07/27/2025 12:45 PM EDT Images from the original note were not included. Outpatient Progress Note Prev Appt: Visit date not found No chief complaint on file. Appointment Note -- Tremors Assessment and Plan - Assessment & Plan Tremor Explained to pt & family that mere [...] adjust up the rivaroxaban dose to compensate. Neurogenic pain (Continue current regimen.) Carotid stenosis, bilateral Plan redo CTA neck 2026 (US carotids is underestimating stenosis). Sequelae of cerebral infarction (Anticoag managed by cardiology.) JOSIAH (obstructive sleep apnea) [Family prev requested that this office take over JOSIAH.] Split-night study ([facility] [place]), split for AHI >= 5. - not contacted, please check on. Afterward, will need new machine, supplies, etc. Download 1 mo then before appt. B12 deficiency --- partially or fully due to PPI. (Continue B12 injections.) Cervical paraspinal muscle spasm PT when/if needed. No orders of the defined types were placed in this encounter. Follow-Up - Follow up in about 2 months (around 09/26/2025). History of Present Illness, Associated Treatments and Results - Dx (JSOIAH) Tx OFF BiPAP @ 31/10 AEs Hx JOSIAH - (Per Dr. John, pulm [place]). Failed Semeiology Circadian Noct oxim PSG _ ([place]) - _ PAPT ([place]) - AHI=8.1 @ 31/10 (max pressure) MSLT MWT Imaging Testing Surgery Dx TREMOR Tx OFF PRM (was 50 bid) (+ labetalol 300 tid --card) AEs Hx Tremor significantly worse off PRM, now having difficulty grabbing things, using tools e.g. kitchen utensils. (PRM had been stopped ad experimentum given concomitant administration of rivaroxaban - but of course, a mere decrease does not change the metabolism. Onset Semeiology Tremor R>>L hand, often at [...] --card) AEs Hx No recent sx. Adm [place] 04/2025 dysarthria. Onset Semeiology Imaging MR brain (02/2025, [place]) - rev'd with pt - no report sent - on my review, atrophy mod-sev, 8-10 UBOs, most tiny, 2 mod incl R fro & R splenium ml CTA head (04/2025 [facility] [place] - stenosis R M1 mod CTA neck (04/2025 [facility] [place] - 50% B MRA head (02/2025, [place]) - no stenoses MRA neck (02/2025, [place]) - no stenoses, dom R vert US carotids (02/2025, [place]) - < 50% B by velocity, but mod plaque poss causing stenosis CT head (04/2025, [facility] [place] - hypodensity L caudate 8 mm Testing [...] ___, unchanged: ___, orig: ___ CNN - NO hypomimia, unchanged: ___, orig: ___ Motor - ___, unchanged: ___, orig: ___ Sens - ___, unchanged: Vibr, temp loss distal LEs, orig: ___ Reflex - ___, unchanged: AJ 0B, orig: ___ Coord - Tremor, at rest and with intention, including head tremor ... Minimal rigidity RUE, unchanged: ___, orig: Tremor R>>L hand mostly end of travel, handwriting messy but not small Gait - ____, unchanged: Gait unchanged off PRM, wide, short, but not clearly parkinsonian, orig: Stride short; hunched; not typically parkinsonian, no hand tremor, a bit atactic on turn ... Turns in 4 Vestib - ___, unchanged: ___, orig: ___ MSK - Spasm - SCMs Tr C mild, unchanged: ___, orig: ___ Other - ___, unchanged: ___, orig: ___ Vital Signs - Visit Vitals Smoking Status Former Review of Systems - . Const: Denies [...] Neg Hx Outpatient Encounter Medications as of 07/27/2025 Medication Sig Dispense Refill acetaminophen (Tylenol) 500 MG tablet Take 1,000 mg by mouth every 6 (six) hours if needed for mildpain acyclovir (Zovirax) 400 MG tablet Take 1 [...] facility-administered encounter medications on file as of 07/27/2025. Barrie Montoya M.D. [facility] ? [address] ? [place] [address] ? ? fax Neurology ? Clinical Neurophysiology ? Epilepsy ? Sleep Disorders ? Clinical Informatics documented in this encounterSt. Joseph Medical CenterGdmbhdzooy11-29-0478 History of Present illness Narrative* Barrie Montoya MD - 07/10/2025 10:30 AM EDTAssociated Problem(s): Tremor (Mere reduction of PRM will not improve rivaroxaban metabolism.) Decr PRM to 50 hs x 2 weeks, then stop. Redo exam off meds. * Barrie Montoya MD - 07/10/2025 10:30 AM EDTAssociated Problem(s): Neurogenic pain Restart duloxetine 20 hs. Observe for (worsening of) restlessness * Barrie Montoya MD - 07/10/2025 10:30 AM EDTAssociated Problem(s): Carotid stenosis, bilateral Plan redo CTA neck 2026 (US carotids is underestimating stenosis). * Barrie Montoya MD - 07/10/2025 10:30 AM EDTAssociated Problem(s): Sequelae of cerebral infarction (Anticoag managed by cardiology.) * Barrie Montoya MD - 07/10/2025 10:30 AM EDTAssociated Problem(s): JOSIAH (obstructive sleep apnea) Family requesting that this office take over JOSIAH. Split-night study ([facility] [place]), split for AHI >= 5. Afterward, will need new machine, supplies, etc. Download 1 mo then before appt. * Barrie Montoya MD - 07/10/2025 10:30 AM EDTAssociated Problem(s): Cervical paraspinal muscle spasm PT when/if needed. * Barrie Montoya MD - 07/10/2025 10:30 AM EDTAssociated Problem(s): B12 deficiency --- partially or fully due to PPI. (Continue B12 injections.) * Barrie Montoya MD - 07/10/2025 10:30 AM EDT Images from the original note [...] this office take over JOSIAH. Split-night study ([facility] [place]), split for AHI >= 5. [...] AEs [facility] Failed Semeiology Circadian Noct oxim PSG _ ([place]) - _ PAPT ([place]) - AHI=8.1 @ 31/10 (max pressure) MSLT [...] --card) AEs Hx No recent sx. Adm [place] 04/2025 dysarthria. Onset Semeiology Imaging MR brain (02/2025, [place]) - rev'd with pt - no report sent - on my review, atrophy mod-sev, 8-10 UBOs, most tiny, 2 mod incl R fro & R splenium ml CTA head (04/2025 [facility] [place] - stenosis R M1 mod CTA neck (04/2025 [facility] [place] - 50% B MRA head (02/2025, [place]) - no stenoses MRA neck (02/2025, [place]) - no stenoses, dom R vert US carotids (02/2025, [place]) - < 50% B by velocity, but mod plaque poss causing stenosis CT head (04/2025, [facility] [place] - hypodensity L caudate 8 mm Testing [...] orig: Stride short; hunched; not typically parkinsonian, nohand tremor, a bit atactic on turn Vestib [...] 6 (six) hours if needed for mildpain acyclovir (Zovirax) 400 MG tablet Take 1 [...] 07/10/2025. Barrie Montoya M.D. [facility] Neurology ? [address] [facility] [place] [address] ? [place] [address] ? ? fax Neurology ? Clinical Neurophysiology ? Epilepsy ? Sleep Disorders ? Clinical Informatics documented in this encounterSt. Joseph Medical [id number] History of Present illness Narrative* Blaise Chicas DPM - 06/28/2025 11:50 AM EDT Patient: Nadir Joy Beth : [...] 2 puffs in the morning and 2 puffsbefore bedtime. Rinse mouth with water after use to reduce aftertaste and incidence of candidiasis.Do not swallow., Disp: , Rfl: cetirizine (ZyrTEC) [...] inhaler, Inhale 1 puff in the morning and1 puff before bedtime. Rinse mouth with water [...] same time. (Patient taking differently: Take 40 mgby mouth Daily), Disp: , Rfl: levoFLOXacin (Levaquin) [...] the morning and 500 mg in the eveningand 500 mg before bedtime., Disp: , Rfl: metoclopramide (Reglan) 5 MG tablet, every 12 (twelve) hours (Patient not taking: Reported on 05/08/2025), Disp: , Rfl: omeprazole (PriLOSEC) [address] capsule, Take 2 capsules every day by oral route for 90 days., Disp:, Rfl: pioglitazone (Actos) 45 MG tablet, TAKE [...] Strain: Low Risk (05/10/2025) Received from [facility] Overall Financial Resource Strain (CARDIA) Difficulty of Paying Living Expenses: Not hard at all Food Insecurity: No Food Insecurity (05/10/2025) Received from [facility] Hunger Vital Sign Within the past 12 months, you worried that your food would run out before you got the money to buymore.: Never true Ran Out of Food in the Last Year: Not on file Transportation Needs: No Transportation Needs (05/10/2025) Received from [facility] Transportation In the past 12 months, has lack of transportation kept you from medical appointments or from getting medications?: No Lack of Transportation (Non-Medical): Not on file Physical Activity: Not on file Stress: Not on file Social Connections: Not on file Intimate Partner Violence: Unknown (05/10/2025) Received from [facility] Humiliation, Afraid, Rape, and Kick questionnaire Fear of Current or Ex-Partner: No Emotionally Abused: Not on file Physically Abused: Not on file Sexually Abused: Not on file Housing Stability: Low Risk (05/10/2025) Received from [facility] Housing Stability Vital Sign In the last 12 months, was there a time when you were not able to pay the mortgage or rent on time?: No Number of Times Moved in the Last Year: Not on file At any time in the past 12 months, were you homeless or living in a prison (including now)?: No ROS: Gastrointestinal: denies abdominal [...] and negative PT pedal pulses NEURO: 5.07 [place] monofilament test diminished to digits and forefoot bilaterally 125Hz tuning fork diminished to 1st MPJ bilaterally ORTHO: Positive pain on palpation to nails 1 through 10 Minimal pain on palpation of right foot lesion ASSESSMENT 1. Verruca plantaris 2. Foot pain, right 3. Diabetes mellitus due to underlying condition with diabetic polyneuropathy, unspecified whether half-way insulin use (HCC) 4. Pain due to [...] DPM documented in this encounterSt. Joseph Medical [id number] NoteUT Cardiology - [facility] Subjective Nadir Beth is a [...] he was referred to see pulmonary at [facility] and daughter wants to know if they can see someone more locally. Patient Active Problem List Diagnosis Aortic valve disorder Atherosclerosis of renal artery Chronic atrial fibrillation (CMS/HCC) Coronary arteriosclerosis Bradycardia Aortic valve stenosis Type 1 diabetes mellitus ([facility]/HCC) Type 2 diabetes mellitus with stage 3 chronic kidney disease, without long-term current use of insulin ([facility]/HCC) Stage 3 chronic kidney disease ([facility]/HCC) Sleep apnea Pulmonary edema Primary hypertension Dyspnea [...] bladder) Post-void dribbling Pulmonary heart disease, unspecified ([facility]) Abnormal findings on diagnostic imaging of heart and coronary circulation Primary hypertension Acute congestive heart failure ([facility]/HCC) History of CVA (cerebrovascular accident) Type 2 diabetes mellitus, with long-term current use of insulin ([facility]) Other hyperlipidemia Chronic atrial fibrillation ([facility]) Chest pain Angina pectoris, unstable ([facility]) Chronic kidney disease Elevated troponin Nonrheumatic aortic [...] diuretic therapy. [facility] due to hyponatremia, hyperkalemia and acute kidney injury, leukocytosis secondary to COVID-19 causing dehydration. I saw him on 05/24/2023 and the office and he had significant evidence of volume overload by exam and echocardiogram. I intensified his diuretic regimen. He ended up getting admitted to the [facility] with acute heart failure exacerbation and [...] On 02/14/2025 he was admitted to the [facility] with altered mental statu (more content not included)...[facility] 06-12-2025 NotePatient Education Urology Benign Prostatic Hyperplasia Benign [...] Follow these instructions at home: ??? Take jazc-flz-iunjfbj and prescription medicines only as told by [...] symptoms do not get (more content not included)...[facility]07-14-2025 NoteSUBJECTIVE Reason for Visit: Nadir Beth is a 85 y.o. year old male patient being seen for status post TAVR follow-up. HPI: Nadir Beth is a 85 y.o. year old male with significant medical history of A-fib on Xarelto, hypertension, HFpEF, CKD, recent history of CVA 4 months back, renal artery stenosis transferred [facility] for acute on chronic heart failure. Patient had history of stroke 4 months back and was in rehab patient has been having progressive lower extremity edema for few days. Patient was advised to increase his Lasix from 20 to 40 mg and blood work was done which showed BNP 6214 and was advised to go to the ED. 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 HPI: Nadir Beth is a 85 y.o. year old male with significant medical history of A-fib on Xarelto, hypertension, HFpEF, CKD, recent history of CVA 4 months back, renal artery stenosis transferred [facility] for acute on chronic heart failure. Patient had history of stroke 4 months back and was in rehab patient has been having progressive lower extremity edema for few days. Patient was advised to increase his Lasix from 20 to 40 mg and blood work was done which showed BNP 6214 and was advised to go to the ED. In [place] ED chest x-ray showed pulmonary vascular congestion [...] Daily with even (more content not included)... [facility]07-03-2025 NoteDischarge Planning MATHEW sent updates through [facility] to [facility]. Patient is medically ready for discharge. MATHEW confirmed facility is able to accept patient today. MATHEW set up ambulance transport with [facility] for 7:35 PM. Call report # ([phone]. Patient and his family notified. Treatment team and facility notified. DC packet left with patient's physical chart.[facility]07-03-2025 NotePhysical Therapy A PT treatment was attempted, however the patient was unavailable and out of the room. Will continue to follow patient for PT intervention.[facility]07-03-2025 NoteCardiothoracic Surgery Progress Note 05/17/2025 Room: [address] [place] [address] Subjective Sitting in bed. No complaints. Denies [...] Cardiothoracic Surgery Inpatient from 8am-4pm call Ascom #[phone]. Only use Plan Me Up chat for general questions. If unable to reach Ascom Number call hospital [facility] machine operator for Cardiothoracic Provider Aviation Medicine Specialist. Cardiothoracic Surgery outpatient Office Number [phone]. Cardiothoracic Surgery outpatient .[facility]07-03-2025 Note Attestation signed by Nikolas Gonzalez MD [...] anticoagulation should be held. Nikolas Gonzalez MD [facility] Pulmonary and Critical Care Medicine Primary Pulmonology Progress Note Patient - Nadir Beth Age - 85 y.o. - 1940 [facility] # - [id number] Date of Admission - 05/10/2025 2:37 AM [...] was admitted as a direct transfer from [place] on 05/10/2025 for acute on chronic heart failure. 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 He presented to the ED on the advice of his physician following an increase in lower extremity edema with associated labs showing a BNP 6200. In the [place] ED he was found to have pulmonary vascular congestion with right sided pleural effusion on chest x-ray, and found to be hypertensive at 190/68, and EKG showed A-fib, he was initially managed medically with lasix and antihypertensives prior to transfer. Patient follows up with Dr. Bland who had scheduled right heart cath on 05/10/2025. At [facility] echo was performed which was unable [...] ABG: No results found for: PHART , UCZ6HCD , PO2ART , RIN6NYU , IONCALART No results found for: PHVEN , HBD1VRF , PO2VEN , SLW3UWP , IONCALVEN CBC: Results from last 7 [...] 0339 05/14/25 0338 SODIUM (more content not included)...[facility] 05-16-2025 NotePhysical Therapy Patient defers session at this time due to significant fatigue and headache. Patient recently transferred out of MICU status post TAVR on 05/15. PT will check back at a later time to complete session.[facility] 05-16-2025 Note Attestation signed by García [...] [facility] 85 [facility] 1940 [id number] Date of Admission - 05/10/2025 2:37 AM HPI/Hospital Course Subjective Nadir Beth is an 85 y.o. male with a PMH of HFpEF, paroxysmal A-fib on Xarelto, CVA, T2DM, hypertension, renal artery stenosis left renal stent, and hyperlipidemia who was admitted as a direct transfer from [place] on 05/10/2025 for acute on chronic heart failure. 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 He presented to the ED on the advice of his physician following an increase in lower extremity edema with associated labs showing a BNP 6200. In the [place] ED he was found to have pulmonary vascular congestion with right sided pleural effusion on chest x-ray, and found to be hypertensive at 190/68, initially managed medically with lasix and antihypertensives prior to transfer. At [facility] echo was performed which was unable [...] ABG: No results found for: PHART , AOO0UTH , PO2ART , GTQ2HVR , IONCALART No results found for: PHVEN , JFN5SDK , PO2VEN , HIG9CIG , IONCALVEN CBC: Results from last 7 [...] 9.3* Cardiac: Results from (more content not included)...[facility] 05-16-2025 NoteOccupational Therapy Name: Nadir Beth Date of : 1940 Today's Date: 05/16/25 Pt is unable to be seen for therapy at this time secondary to Pt is currently on bed rest per nursing and will require OT check after TAVR due to decreased medical status and transfer to MICU. Will check back and complete therapy session as appropriate. Check No Charge Time attempted: 1004[facility]07-02-2025 NoteCardiology Inpatient Progress Note Subjective Reason for consult: Acute on chronic HFpEF, hypertension urgency, TAVR. HPI: Nadir Beth is a 85 y.o. year old male with significant medical history of A-fib on Xarelto, hypertension, HFpEF, CKD, recent history of CVA 4 months back, renal artery stenosis [facility] heart [facility]. Patient had history of stroke 4 months back and was in rehab patient has been having progressive lower extremity edema for few days. Patient was advised to increase his Lasix from 20 to 40 mg and blood work was done which showed BNP 6214 and was advised to go to the ED. In [place] ED chest x-ray showed pulmonary vascular congestion [...] 95 % -- 0 (more content not included)...[facility]07-02-2025 NoteCardiothoracic Surgery Progress Note 05/16/2025 Room: [address] [place] [address] Nadir Beth is a 85 y.o. male [...] (TTE) limited Result Date: 05/15/2025 1 1 [facility] Heart Station [address] [place] [address] [phone] (fax) Echocardiogram-[facility] Name: NADIR BETH Study Date: 05/15/2025 12:46 PM B/P: 171 mmHg/100 mmHg HR: 87 bpm Date of : 1940 Location: [facility] Height: 72 in. Age: 85 (more content not included)...[facility]07-01-2025 NoteName: Nadir Beth Date of : 1940 Today's Date: 05/15/25 Pt is unable to be seen for Physical Therapy at this time secondary to: per RN, pt currently off floor for TAVR. Will check back and complete therapy session as appropriate. Check No Charge Time attempted: 1515[facility]07-01-2025 Note Occupational Therapy Name: Nadir Beth Date of : 1940 Today's Date: 05/15/25 Pt is unable to be seen for therapy at this time secondary to Pt is off unit for TAVR. Will check back and complete therapy session as appropriate. Check No Charge Time attempted: 1501Un[facility]07-01-2025 NoteNot sure baseline kidney function, creatinine today 1.61 Will decrease Lasix to 40 mg dailyUnSumma Health07-01-2025 NoteAcute on chronic heart failure with preserved EF [...] risk for CABG/AVR specially with history of [facility]AUniversity [facility]07-01-2025 NoteHighest troponin went up to 26 Likely combination of chronic kidney disease and CHFUnSumma Health07-01-2025 NoteContinue ZetiaUnSumma Health 05-15-2025 NoteContinue sliding scale insulin A1c came back of 9.3Un[facility]07-01-2025 NoteContinue current clonidine 0.2/3 times daily, hydralazine 25/ 3 times daily and labetalolUnSumma Health07-01-2025 NoteCHADS2 DS vascular score is 7 currently on Xarelto Patient already on labetalolUnSumma Health07-01-2025 NoteOn aspirin and ZetiaUnSumma Health07-01-2025 NoteHospital Medicine Daily Progress Note - 05/15/2025 1:08 PM; Room: [address] [place] [address] Admission: 05/10/2025 2:37 AM; Length of stay: 5 days THE HOSPITALIST TEAM PREFERS TO USE cinvolve CHAT FOR NON-URGENT COMMUNICATION 7AM-7PM. IF I DO NOT RESPOND WITHIN 20 MINUTES OR URGENT MATTERS, PLEASE CALL THROUGH THE DULSER. FROM 7PM-7AM, PLEASE PAGE [phone](COVR). Code Status: Full Code Barriers to Discharge: [...] daily and labetalol Acute congestive heart failure ([facility]) Acute on chronic heart failure with preserved [...] mellitus, with long-term current use of insulin ([facility]) Continue sliding scale insulin A1c came back of 9.3 Other hyperlipidemia Continue Zetia Chronic atrial fibrillation ([facility]) CHADS2 DS vascular score is 7 currently [...] < > 101 CO2 mmol/L 29 29 < > 26 BUN mg/dL 34* 34* 32* < > 28* CREATININE mg/dL 1.61* 1.74* 1.65* < > 1.45* GLUCOSE mg/dL 255* 186* 206* < > 156* MAGNESIUM mg/dL -- -- -- -- 2.0 CALCIUM mg/dL 8.9 8.4* 8.5* < > 8.5* < > = values in this interval not displayed. Results from last 7 days Lab (more content not included)...[facility]07-01-2025 NoteCardiology Inpatient Progress Note Subjective Reason for consult: Acute on chronic HFpEF, hypertension urgency, TAVR. HPI: Nadir Beth is a 85 y.o. year old male with significant medical history of A-fib on Xarelto, hypertension, HFpEF, CKD, recent history of CVA 4 months back, renal artery stenosis transferred [facility] for acute [facility] chronic heart failure. Patient had history of stroke 4 months back and was in rehab patient has been having progressive lower extremity edema for few days. Patient was advised to increase his Lasix from 20 to 40 mg and blood work was done which showed BNP 6214 and was advised to go to the ED. In [place] ED chest x-ray showed pulmonary vascular congestion [...] (163 lb) SpO2 96% (more content not included)...[facility]07-01-2025 NotePatient: Nadir Palaciocailinnathaniel Procedure Information Date/Time: 05/15/25 1100 Procedure: TAVR Location: [facility] MOCCASIN SEWER 3 / [facility] (Cath) Providers: Claribel Cisneros MD [...] who consented to blood products. Additional Equipment RequestsParkview Health Montpelier Hospital06-30-2025 Note Physical Therapy Physical Therapy Treatment Patient [...] implement solutions Communication: (decreased communication with this RAMP SERVICE EMPLOYEE d/t lethargy) General Assessment General Assessment Hearing: SENECA - family reports he has hearing aids [...] to a chair (in (more content not included)...[facility]06-30-2025 NotePatient was admitted to the hospital for: Chest [...] Dias, RN, BSN Cardiology Outpatient Coordinator Cardiopulmonary RehabUnSumma Health06-30-2025 NoteContinue ZetiaUnSumma Health06-30-2025 NoteOn aspirin and Zetia [facility]06-30-2025 NoteAcute on chronic heart failure with preserved EF [...] artery bypass grafting/AVR specially with history of [facility]AUniversity [facility] 05-14-2025 NoteHighest troponin went up to 26 Likely combination of chronic kidney disease and CHFUnSumma Health06-30-2025 NoteContinue current clonidine 0.2/3 times daily, hydralazine 25/ 3 times daily and labetalolUnSumma Health06-30-2025 NoteCHADS2 DS vascular score is 7 currently on Xarelto Patient already on labetalolUnSumma Health06-30-2025 Note Not sure baseline kidney function, creatinine today 1.74 Will decrease Lasix to 40 mg dailyUnSumma Health06-30-2025 NoteContinue sliding scale insulin A1c came back of 9.3[facility]06-30-2025 NoteHospital Medicine Daily Progress Note - 05/14/2025 12:11 PM; Room: [address] [place] [address] Admission: 05/10/2025 2:37 AM; Length of stay: 4 days THE HOSPITALIST TEAM PREFERS TO USE mobilePeople FOR NON-URGENT COMMUNICATION 7AM-7PM. IF I DO NOT RESPOND WITHIN 20 MINUTES OR URGENT MATTERS, PLEASE CALL THROUGH THE DULSER. FROM 7PM-7AM, PLEASE PAGE [phone](COVR). Code Status: Full Code Barriers to Discharge: [...] mellitus, with long-term current use of insulin ([facility]) Continue sliding scale insulin A1c came back of 9.3 Other hyperlipidemia Continue Zetia Chronic atrial fibrillation ([facility]) CHADS2 DS vascular score is 7 currently [...] prior to this (more content not included)... [facility]06-30-2025 NoteOccupational Therapy Occupational Therapy Treatment Patient Name: Nadir [...] friendly and cooperative Session Comments: Upon arrival customs entry writer noted pts male purwick had leaked. [...] Assistance: Contact guard Static Sitting-Comment/Number of Minutes: Sort Line Worker noted posterior lean while utilizing B UE's in bathing task. Tactile cues required to customs entry writer self Dynamic Sitting Balance Dynamic Sitting [...] Eating meals?: None (Independent) Total Score OT [facility]: 21 Assessment/Plan OT Assessment OT Impairments: Decreased [...] Strengths: Support of extended (more content not included)...[facility]06-30-2025 NoteCardiology Inpatient Progress Note Subjective Reason for consult: Acute on chronic HFpEF, hypertension urgency, TAVR. HPI: Nadir Beth is a 85 y.o. year old male with significant medical history of A-fib on Xarelto, hypertension, HFpEF, CKD, recent history of CVA 4 months back, renal artery stenosis transferred [facility] for [facility] chronic heart [facility]. Patient had history of stroke 4 months back and was in rehab patient has been having progressive lower extremity edema for few days. Patient was advised to increase his Lasix from 20 to 40 mg and blood work was done which showed BNP 6214 and was advised to go to the ED. In [place] ED chest x-ray showed pulmonary vascular congestion with right-sided pleural effusion and EKG showed A-fib, patient was found to be hypertensive with blood pressure 190/68. Patient follows up with Dr. Blnad who had scheduled right heart cath on [...] No wheezes, rales (more content not included)... [facility]06-30-2025 Notedischarge planning: return to [facility] 0917 updates sent to [facility], via [employer] system [address]; notice sent to SNF, via [employer] system, with request to confirm bed availability today 1028 SNF has bed today but Discharge Order has been removed for Patient to have TAVR tomorrow; SNF notified via [employer] system discharge barriers: [] no insurance precert needed for SNF, but confirm bed at discharge [] [facility]06-30-2025 NoteSTS Scoring for Surgical AVR, plan to proceed with TAVR after [...] 31.3%, WBC Count: 10.18 10???/?L, Platelet Count: 612345 cells/?L PreOp Medications: Insulin diabetes control Risk Factors / Comorbidities: Insulin-dependent Diabetes Mellitus, Hypertension Vascular RF: Cerebrovascular Disease: CVA <= 30 days Cardiac Status: Chronic heart failure, Ejection Fraction = 50% Valve Disease: Aortic Stenosis, Mild AR, Mild MR Arrhythmia: Recent A-fib, ParoxysmalUnSumma Health 05-13-2025 NoteHighest troponin went up to 26 Likely combination of chronic kidney disease and CHFUnSumma Health06-29-2025 NoteNot sure baseline kidney function, creatinine today 1.65 [facility]06-29-2025 NoteCHADS2 DS vascular score is 7 currently on Xarelto Patient already on labetalolUnSumma Health06-29-2025 Note Continue ZetiaUnSumma Health06-29-2025 NoteAcute on chronic heart failure with preserved EF [...] artery bypass grafting/AVR specially with history of CVAUniversity of [facility] 05-13-2025 NoteContinue sliding scale insulin A1c came back of 9.3Un[facility]06-29-2025 NoteContinue current clonidine 0.2 3 times daily, hydralazine 25 3 times daily and labetalolUnSumma Health06-29-2025 NoteOn aspirin and Zetia [facility]06-29-2025 NoteHospital Medicine Daily Progress Note - 05/13/2025 10:51 AM; Room: [address] [place] [address] Admission: 05/10/2025 2:37 AM; Length of stay: 3 days THE HOSPITALIST TEAM PREFERS TO USE cinvolve CHAT FOR NON-URGENT COMMUNICATION 7AM-7PM. IF I DO NOT RESPOND WITHIN 20 MINUTES OR URGENT MATTERS, PLEASE CALL THROUGH THE DULSER. FROM 7PM-7AM, PLEASE PAGE [phone](COVR). Code Status: Full Code Barriers to Discharge: [...] mellitus, with long-term current use of insulin ([facility]) Continue sliding scale insulin A1c came back of 9.3 Other hyperlipidemia Continue Zetia Chronic atrial fibrillation ([facility]) CHADS2 DS vascular score is 7 currently [...] 05/11/2025 LDL 118 05/11/20 (more content not included)...[facility]06-29-2025 NoteCardiology Inpatient Progress Note Subjective Reason for consult: Acute on chronic HFpEF, hypertension urgency HPI: Nadir Beth is a 85 y.o. year old male with significant medical history of A-fib on Xarelto, hypertension, HFpEF, CKD, recent history of CVA 4 months back, renal artery stenosis transferred [facility] for acute on chronic heart failure. Patient had history of stroke 4 months back and was in rehab patient has been having progressive lower extremity edema for few days. Patient was advised to increase his Lasix from 20 to 40 mg and blood work was done which showed BNP 6214 and was advised to go to the ED. In [place] ED chest x-ray showed pulmonary vascular congestion [...] pulsations or distension. Bowel (more content not included)...[facility]06-28-2025 NoteCHADS2 DS vascular score is 7 currently on Xarelto Patient already on labetalolUnSumma Health06-28-2025 Note Not sure baseline kidney function, creatinine today 1.63Un[facility]06-28-2025 NoteContinue sliding scale insulin A1c came back of 9.3[facility]06-28-2025 NoteHighest troponin went up to 26 Likely combination of chronic kidney disease and CHFUnSumma Health06-28-2025 NoteAcute on chronic heart failure with preserved EF [...] artery bypass grafting/AVR specially with [facility] of [facility] 05-12-2025 NoteContinue current clonidine 0.2 3 times daily, hydralazine 25 3 times daily and labetalolUnSumma Health06-28-2025 NoteContinue Zetia [facility]06-28-2025 NoteOn aspirin and ZetiaUnSumma Health06-28-2025 NoteHospital Medicine Daily Progress Note - 05/12/2025 12:25 PM; Room: 3122/3122-01 Admission: 05/10/2025 2:37 AM; Length of stay: 2 days THE HOSPITALIST TEAM PREFERS TO USE mobilePeople FOR NON-URGENT COMMUNICATION 7AM-7PM. IF I DO NOT RESPOND WITHIN 20 MINUTES OR URGENT MATTERS, PLEASE CALL THROUGH THE DULSER. FROM 7PM-7AM, PLEASE PAGE [phone](COVR). Code Status: Full Code Barriers to Discharge: [...] mellitus, with long-term current use of insulin ([facility]) Continue sliding scale insulin A1c came back of 9.3 Other hyperlipidemia Continue Zetia Chronic atrial fibrillation ([facility]) CHADS2 DS vascular score is 7 currently [...] LDL 118 05/11/2025 No results found for: [id number] , IRON , TI (more content not included)... [facility]06-28-2025 Note Attestation signed by Nicole Reynolds MD [...] TAVR. Nicole Reynolds MD, ScM, MSc Cardiac Hothouse Worker Email: [email or web address] Nicole Reynolds MD, ScM, MSc Cardiac Hothouse Worker Email: [email or web address] Cardiology Progress Note Subjective Patient [...] Bubble Study Result Date: 05/10/2025 1 1 [facility] Heart Station [address] [place] [address] [phone] (fax) Echocardiogram-[facility] Name: NADIR BETH Study Date: 05/10/2025 09:19 AM B/P: 178 mmHg/92 mmHg HR: 104 bpm Date of : 1940 Location: [facility] Height: 72 in. Age: 85 year(s) [...] 2D 24.6 ml/m2 LVO (more content not included)...[facility]06-27-2025 Note. No associated orders from this encounter found during lookback period of 72 hours.[facility]06-27-2025 NoteCOrders from past 72 hours: Case Request Hotel Associate: Coronary angiography, Right heart cath; Standing Cardiac catheterization; StandingUnSumma Health06-27-2025 NoteInsulin blood sugar check diet A1c came back of 9.3Un[facility]06-27-2025 NoteHighest troponin went up to 26 Likely combination of chronic kidney disease and CHFUnSumma Health06-27-2025 NoteNot sure baseline kidney function, creatinine today 1.56, will monitorUnSumma Health06-27-2025 NoteCHADS2 DS vascular score is 7 currently on Eliquis Patient on heparin drip and plan to switch on Eliquis after procedure Patient already on labetalolUnSumma Health06-27-2025 Note Continue ZetiaUnSumma Health06-27-2025 NoteAcute on chronic heart failure with preserved EF BNP of 736 Echo 05/10 showed EF preserved. Moderate AAS and AR, mild MR and TR Patient scheduled for cardiac cath today Lasix 40 IV every 8 hours Continue goal-directed medical therapy Farxiga, labetalol, Aldactone Uptitrate meds after Cardiac cathUnSumma Health06-27-2025 NoteContinue current clonidine 0.2 3 times daily, hydralazine 25 3 times daily and labetalolUnSumma Health06-27-2025 NoteOn aspirin statin with deconditioning and gait abnormality with fall risk PT [facility]06-27-2025 NoteHospital Medicine Daily Progress Note - 05/11/2025 4:14 PM; Room: [address] [place] [address] Admission: 05/10/2025 2:37 AM; Length of stay: 1 days THE HOSPITALIST TEAM PREFERS TO USE cinvolve CHAT FOR NON-URGENT COMMUNICATION 7AM-7PM. IF I DO NOT RESPOND WITHIN 20 MINUTES OR URGENT MATTERS, PLEASE CALL THROUGH THE DULSER. FROM 7PM-7AM, PLEASE PAGE [phone](COVR). Code Status: Full Code Barriers to Discharge: [...] daily and labetalol Acute congestive heart failure ([facility]) Acute on chronic heart failure with preserved [...] mellitus, with long-term current use of insulin ([facility]) Insulin blood sugar check diet A1c came back of 9.3 Other hyperlipidemia Continue Zetia Chronic atrial fibrillation ([facility]) CHADS2 DS vascular score is 7 currently [...] LDL 118 05/11/2025 No results found for: [id number] , IRON , TIBC , C3 , C4 , SHERRY , CANCA , ASO , PSA , CEA , CA125 , CA199 , AFP , CA153 Imaging Complete Echo (TTE) w/wo Imaging Agent, Strain, 3D, Bubble Study 1 1 [facility] Heart Station [address] [place] [address] [phone] (fax) Echocardiogram-[facility] Name: (more content not included)...[facility]06-27-2025 Notedischarge planning: to return to [facility] updates sent to [facility], via [employer] system discharge barriers: [] no insurance precert needed for any placement from this admission, but confirm bed still available before discharge [] [facility]06-27-2025 NoteCTA CHEST W IV CONTRAST 05/11/2025 1:46 PM [...] 3 cusped view, anterior view, and no DIVISION ROADMASTER-CAU view are saved in 3-D volume rendered [...] of 26 mm Electronically signed: Yenni Stafford MD.[facility] Comment on above:Order Comment: Patient had pre procedure medications already for [id number] Note Attestation signed by Azeem Green MD at 05/11/2025 4:45 PM I personally saw and examined the patient on rounds and agree with the assessment and plan of the durable medical equipment technician Cardiology Progress Note Subjective Patient was examined at the bedside. No acute events overnight. Patient scheduled for cardiac cath today. Objective Current Medications[1] Objective: Patient Vitals for the past 24 hrs: BP Temp Temp src Pulse Resp SpO2 Weight 05/11/25 0800 149/57 36.5 ???C (97.7 ???F) [facility] 72 14 97 % -- 05/11/25 0600 [...] Bubble Study Result Date: 05/10/2025 1 1 [facility] Heart Station [address] [place] [address] [phone] (fax) Echocardiogram-[facility] Name: NADIR BETH Study Date: 05/10/2025 09:19 AM B/P: 178 mmHg/92 mmHg HR: 104 bpm Date of : 1940 Location: [facility] Height: 72 in. Age: 85 year(s) [...] The left atr (more content not included)... [facility]06-27-2025 NotePhysical Therapy Physical Therapy Treatment Patient Name: Nadir [...] time General Assessment General Assessment Hearing: Mild [place] Hand Dominance: Right Static Sitting Balance Static [...] Clicks T-Score: 18 Assessment/Plan PT Assessment PT Assessment/RAMP SERVICE EMPLOYEE Summary: Patient is a 85 y/o male [...] Date LTG - Janay (more content not included)...[facility] 05-11-2025 NotePatient: Nadir Beth Procedure Information Date/Time: 05/11/25 1130 Procedures: Coronary angiography Right heart cath Location: [facility] MOCCASIN SEWER 3 / [facility] (Cath) Providers: Aissatou Hughes MD [...] who consented to blood products. Additional Equipment RequestsParkview Health Montpelier Hospital06-26-2025 Note Attestation signed by Landen Rice PT at 05/10/2025 3:50 PM This customs entry writer (PT) provided one-on-one supervision, direction of [...] an 85 y/o male admitted [facility] where he presented following outpatient labs [...] Intact General Assessment General Assessment Hearing: mild [place] Hand Dominance: Right Home Living Home Living [...] Level of Function Prior Function Level of [place]: Independent with ADLs and functional transfers, Independent [...] assist in initiation/anterior weight shift. Patient shannan yojana LE strength req (more content not included)... [facility]06-26-2025 Note05/10/25 1520 Admission Assessment Questions Verify insurance with [...] back? Yes Pharmacy Bedside Delivery Status Interested ([facility] in [facility]) Does the patient have a watch case polisher assigned to them through their insurance? No Living Arrangement (Current/Prior to Hospitalization) Private residence;Inpatient rehab facility (2 story house w/ 5 steps. Lives with his and she is able to help after discharge as needed. Came to us from [facility] x 3 weeks / Bedhold.) Does the patient have history of HHC or SNF? Yes (Hx HHC et Current SNF.) Assistive Device Walker;Wheelchair (@ [facility]. Walker at home.) Patient's goal for discharge [facility] Was patient reminded that goal for [...] the patient's family members at his bedside. [facility]06-26-2025 NoteOccupational Therapy Occupational Therapy Evaluation Patient Name: Nadir [...] Intact General Assessment General Assessment Hearing: (mild [place]) Hand Dominance: Right Home Living Home Living Type of Home: House Lives With: Spouse Home Adaptive Equipment: Walker rolling, Cane (sc, gb, [facility]) Home Layout: One level Home Access: Stairs to enter with rails (5) Bathroom Shower/Tub: Tub/shower unit Prior Level of Function Prior Function Level of [place]: Independent with ADLs and functional transfers, Independent [...] Eating meals?: None (Independent) Total Score OT [facility]: 21 Assessment/Plan OT Assessment OT Impairments: Decreased ADL status, Decreased endurance, Decreased functional mobility OT Assessment/BISQUE PLACER Summary: (needs skilled OT due to weakness [...] current use of insu (more content not included)...[facility]06-26-2025 NoteDaily Case Management Update Barriers to Discharge et per Progress Note: Transfer from [facility] for elevated BNP et BLE Edema. [...] Reason for OT? Answer: gait abnormality 05/10/25 0411[facility]06-[facility] NotePer review of chart patient has diastolic heart failure had history of pericardial effusion as well we will optimize guideline directed medical therapy with limitation due to renal insufficiency obtain echocardiogram cycle troponins cardiology to see [facility]06-26-2025 NoteInsulin blood sugar check [facility]06-26-2025 Note Antilipemic agents [facility]06-26-2025 NoteOn aspirin statin with deconditioning and gait abnormality with fall risk PT OT to see [facility]06-26-2025 NoteAdjust antihypertensives low-salt diet with renal insufficiency unable to start JAY or ARBUnSumma Health06-26-2025 NoteCHADS2 DS vascular score is 7 currently on Eliquis Chronic kidney disease stage IIIb avoid nephrotoxic meds hypovolemia nephrology consultUnSumma Health06-26-2025 NoteHospital Medicine History and Physical 05/10/2025 4:12 AM THE HOSPITALIST TEAM PREFERS TO USE mobilePeople FOR NON-URGENT COMMUNICATION 7AM-7PM. IF I DO NOT RESPOND WITHIN 20 MINUTES OR URGENT MATTERS, PLEASE CALL THROUGH THE DULSER. FROM 7PM-7AM, PLEASE PAGE [phone](COVR). Chief Complaint No chief complaint on file. History of Present Illness Nadir Turner is an 85 y.o. male admitted as a direct transfer from [facility] where he presented following outpatient labs [...] pulses. Heart sounds: Normal heart sounds. Comments: [id number] s4 systolic murmur Pulmonary: Effort: Pulmonary effort [...] JAY or ARB Acute congestive heart failure ([facility]) Per review of chart patient has diastolic [...] mellitus, with long-term current use of insulin ([facility]) Insulin blood sugar check diet Other hyperlipidemia Antilipemic agents diet Chronic atrial fibrillation ([facility]) CHADS2 DS vascular score is 7 currently [...] this hospital stay by a member of [facility]. Past Medical History Medical History[1] Past Surgical History Surgical History[2] Social History Social History Socioeconomic History Marital status: Not on file Spouse name: Not on file Number of children: Not on file Years of education: Not on file Highest education level: Not on file Occupational History Not on file Tobacco Use Smoking status: Former Types: Cigarettes S (more content not included)...[facility]06-24-2025 History of Present illness Narrative* Mony Herron NP - 05/08/2025 2:00 PM EDTAssociated Problem(s): Benign essential tremor (Continue current regimen.) Primidone was decreased * Mony Herron NP - 05/08/2025 2:00 PM EDTAssociated Problem(s): Neurogenic pain (Continue current regimen.) OFF dulox * Mony Herron NP - 05/08/2025 2:00 PM EDTAssociated Problem(s): Sequelae of cerebral infarction (Continue ASA, Xeralto - was on eliquis, statin.) * Mony Herron NP - 05/08/2025 2:00 PM EDTAssociated Problem(s): Cervical paraspinal muscle spasm (In SNF post stroke) * Mony Herron NP - 05/08/2025 2:00 PM EDTAssociated Problem(s): JOSIAH (obstructive sleep apnea) Family will bring CPAP to SNF. Has been noncompliant at home May benefit from re titration study Managed by Dr John in [place] * Mony Herron NP - 05/08/2025 2:00 PM EDTAssociated Problem(s): Carotid stenosis, bilateral Plan redo US carotids 2026. * Mony Herron NP - 05/08/2025 2:00 PM EDTAssociated Problem(s): Polyneuropathy (Continue current regimen.) * Mony Herron NP - 05/08/2025 2:00 PM EDT Images from the original note were not included. Outpatient Progress Note Prev Appt: Visit date not found No chief complaint on file. Appointment Note -- FU ([facility] [place] [place] Patient is here today for post stroke [...] titration study Managed by Dr John in [place] Carotid stenosis, bilateral Plan redo US carotids 2026. Polyneuropathy (Continue current regimen.) No orders of the defined types were placed in this encounter. Follow-Up - No follow-ups on file. History of Present Illness, Associated Treatments and Results - Dx (JOSIAH) Tx OFF BiPAP @ 31/10 AEs Hx JOSIAH - (Per Dr. John, pulm [place]). Failed Semeiology Circadian Noct oxim PSG _ ([place]) - _ PAPT ([place]) - AHI=8.1 @ 31/10 (max pressure) MSLT [...] UBOs Tx ASA AEs Hx Recent adm [place] for confusion. Now baseline. Images rev'd. No clear cognitive decline. Denies forgetting names, leaving tools/stove on, getting lost, etc. Onset Semeiology Imaging MR brain (02/2025, [place]) - rev'd with pt - no report sent - on my review, atrophy mod-sev, 8-10 UBOs, most tiny, 2 mod incl R fro & R splenium CC MRA head (02/2025, [place]) - no stenoses MRA neck (02/2025, [place]) - no stenoses, dom R vert US carotids (02/2025, [place]) - < 50% B by velocity, but mod plaque poss causing stenosis Testing Surgery Failed Dx L BASAL GANGLIA STROKE/WMD/ATROPHY Tx (Continue ASA, Xeralto ?, statin.) AEs Hx Onset [id number] AMS and garbled speech Semeiology To [facility] [place]. CT and MRI showed stroke ? Subacute. Eliquis changed to Xeralto. DC to [facility] for Skilled therapy. Imaging CT Head (04/2025 [facility] [place] [place] 8mm hypodensity in left caudate nucleus MRI Brain (04/2025 [facility] [place] [place] Subacute left basal ganglia ischemia, mild WMD, moderate atrophy CTA H/N (04/2025 [facility] [place] [place] 50% ICA stenosis B. Moderate M1 right MCA stenosis Testing Echo (04/2025 [facility] [place] [place]) EF 65-70%, Aortic sclerosis, severe PHT RSVP [...] 05/08/2025. [facility] ? [address] [facility] [address] ? [place] [id number] ? ? fax Neurology ? Clinical Neurophysiology ? Epilepsy ? Sleep Disorders ? Clinical Informatics documented in this encounterSt. Joseph Medical [id number] NoteUT Cardiology - [facility] Subjective Nadir Beth is a 85 y.o. year old male patient being seen for follow up CVA. Patient was in [facility] for 4 days. Patient complains of HERNANDEZ and leg swelling, high blood sugars. Patient is at the [facility] for rehab. Patient Active Problem List Diagnosis [...] diuretic therapy. He was admitted to [facility] 2022 due to hyponatremia, hyperkalemia and acute kidney injury, leukocytosis secondary to COVID-19 causing dehydration. I saw him on 05/24/2023 and the office and he had significant evidence of volume overload by exam and echocardiogram. I intensified his diuretic regimen. He ended up getting admitted to the [facility] with acute heart failure exacerbation and [...] On 02/14/2025 he was admitted to the [facility] with altered mental status. brain MRI showed multiple infarcts. He was seen by cardiology consult and Eliquis was changed to Xarelto. He then underwent a transesophageal echocardiogram that showed no evidence of intra cardiac thrombi. The aortic valve stenosis appeared to be severe. He was seen in the emergency room at the [facility] on 03/08/2025 with chest pain episode. He ruled out for myocardial infarction and was discharged. I last saw him on 03/12/2025 and decided to proceed with cardiac catheterization as part of his workup for aortic valve replacement. The procedure is scheduled for May 10, 2025. However in the interim he was admitted on 04/14/2025 to [facility] with apparent acute cerebrovascular accident. MRI showed possible small acute/subacute infarct. The clinical presentation was that of inability to speak. Relatively quickly. He was discharged back to rehab at the [facility] (more content not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 Location:[facility] Appointment Type:URO Office Visit Future Scheduled Tests Laboratory* CBC w/ Auto Diff 10/01/23 * Comprehensive Metabolic Panel 10/01/23 * Thyroid Stimulating Hormone 10/01/23 [facility] Evaluation + Plan note Future Appointments Appointment Date:03/04/2026 09:00:00 AM Scheduled Provider:MARQUIS LOUISE MD Location:[facility] Appointment Type:URO Office Visit [facility] evaluation note* Diagnosis Melanocytic nevus of trunk- [...] underlying condition with diabetic polyneuropathy, unspecified whether half-way insulin use ([facility]) Pain due to onychomycosis of toenails of both feet [facility] Diagnosis Xerosis cutis- Primary Other specified disease of sebaceous glands Verruca plantaris Plantar wart Foot pain, right Pain in soft tissues of limb Diabetes mellitus due to underlying condition with diabetic polyneuropathy, unspecified whether half-way insulin use (CMS/HCC) Onychomycosis Dermatophytosis of nail [...] underlying condition with diabetic polyneuropathy, unspecified whether longwall foreman insulin use (CMS/HCC) Pain due to onychomycosis [...] underlying condition with diabetic polyneuropathy, unspecified whether half-way insulin use (CMS/HCC) Pain due to onychomycosis [...] underlying condition with diabetic polyneuropathy, unspecified whether half-way insulin use (CMS/HCC) Pain due to onychomycosis [...] underlying condition with diabetic polyneuropathy, unspecified whether longwall foreman insulin use (HCC) Pain due to onychomycosis [...] B12 deficiency [facility]* [...] muscle spasm Spasm of muscle B12 deficiency Tremor- Primary Abnormal involuntary movements Neurogenic pain Carotid stenosis, bilateral Occlusion and stenosis of carotid artery without mention of cerebral infarction 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 JOSIAH (obstructive sleep apnea) Obstructive sleep apnea (adult) (pediatric) B12 deficiency Cervical paraspinal muscle spasm Spasm of muscle documented in this [facility] [...] Narrative No data available for this section [facility] Discharge instructions No data available for this section [facility] data available for this section [facility] Summary Purpose Family History No [...] and content) DATE CREATED AUTHOR 02/09/2019 [facility] DATE CREATED AUTHOR AUTHOR'S ORGANIZ ATION 03/28/2023 [facility] DATE CREATED AUTHOR AUTHOR'S ORGANIZ ATION 04/15/2025 [facility] DATE CREATED AUTHOR AUTHOR'S ORGANIZ ATION 04/16/2025 [facility] DATE CREATED AUTHOR AUTHOR'S ORGANIZ ATION 04/17/2025 [facility] DATE CREATED AUTHOR AUTHOR'S ORGANIZ ATION 04/18/2025 [facility] DATE CREATED AUTHOR AUTHOR'S ORGANIZ ATION 04/19/2025 [facility] DATE CREATED AUTHOR AUTHOR'S ORGANIZ ATION 04/21/2025 [facility] DATE CREATED AUTHOR AUTHOR'S ORGANIZ ATION 04/22/2025 [facility] DATE CREATED AUTHOR AUTHOR'S ORGANIZ ATION 05/23/2025 [facility] DATE CREATED AUTHOR AUTHOR'S ORGANIZ ATION 06/12/2025 [facility] DATE CREATED AUTHOR AUTHOR'S ORGANIZ ATION 06/14/2025 [facility] DATE CREATED AUTHOR AUTHOR'S ORGANIZ ATION 07/29/2025 [facility] DATE CREATED AUTHOR AUTHOR'S ORGANIZ ATION 08/17/2025 [facility] Care Team (unrecognized sect ion and content) Team MemberRelationshipSpecialtyStart DateEnd Date Van Youssef MD [address] [place] [address] PCP - GeneralFamily Medicine12/02/23Team MemberRelationshipSpecialtyStart DateEnd Date Van Youssef MD [address] [place] [address] PCP - GeneralFamily Medicine12/02/23Team MemberRelationshipSpecialtyStart DateEnd Date Van Youssef MD [address] [place] [address] PCP - GeneralFamily Medicine12/02/23Team MemberRelationshipSpecialtyStart DateEnd Date Van Youssef MD [address] [facility] [place] [address] PCP - GeneralFamily Medicine12/02/23Team MemberRelationshipSpecialtyStart DateEnd Date Van Youssef MD [address] [facility] [place] [address] PCP - GeneralFamily Medicine12/02/23Team MemberRelationshipSpecialtyStart DateEnd Date Van Youssef MD [address] [facility] [place] [address] PCP - GeneralFamily Medicine12/02/23Team MemberRelationshipSpecialtyStart DateEnd Date Van Youssef MD [address] [facility] [place] [address] PCP - GeneralFamily Medicine12/02/23Team MemberRelationshipSpecialtyStart DateEnd Date Van Youssef MD [address] [facility] [place] [address] PCP - GeneralFamily Medicine12/02/23Team MemberRelationshipSpecialtyStart DateEnd Date Van Youssef MD [address] [facility] [place] [address] PCP - GeneralFamily Medicine12/02/23Team MemberRelationshipSpecialtyStart DateEnd Date Van Youssef MD [address] [facility] [place] [address] PCP - GeneralFamily Medicine12/02/23Team MemberRelationshipSpecialtyStart DateEnd Date Van Youssef MD [address] [facility] [place] [address] PCP - GeneralFamily Medicine12/02/23Team MemberRelationshipSpecialtyStart DateEnd Date Van Youssef MD PCP - GeneralFamily Medicine12/02/23Team MemberRelationshipSpecialtyStart DateEnd Date Van Youssef MD [address] [facility] [place] [address] PCP - GeneralFamily Medicine12/02/23Team MemberRelationshipSpecialtyStart DateEnd Date Van Youssef MD [address] [facility] [place] [address] PCP - GeneralFamily Medicine12/02/23Team MemberRelationshipSpecialtyStart DateEnd Date Van Youssef MD [address] [facility] [place] [address] PCP - GeneralFamily Medicine12/02/23Team MemberRelationshipSpecialtyStart DateEnd Date Van Youssef MD [address] [facility] [place] [address] PCP - GeneralFamily Medicine12/02/23Team MemberRelationshipSpecialtyStart DateEnd Date Van Youssef MD [address] [facility] [place] [address] PCP - GeneralFamily Medicine1/18/24Team MemberRelationshipSpecialtyStart DateEnd Date Van Youssef MD [address] [facility] [place] [address] PCP - GeneralFamily Medicine12/02/23Team MemberRelationshipSpecialtyStart DateEnd Date Van Youssef MD [address] [facility] [place] [address] PCP - GeneralFamily Medicine12/02/23Team MemberRelationshipSpecialtyStart DateEnd Date Van Youssef MD [address] [facility] [place] [address] PCP - GeneralFami Medicine12/02/23Team MemberRelationshipSpecialtyStart DateEnd Date Van Youssef MD [address] [facility] [place] [address] PCP - Generalmily Medicine12/02/23Team MemberRelationshipSpecialtyStart DateEnd Date Van Youssef MD [address] [facility] [place] [address] PCP - GeneralFamily Medicine12/02/23Team MemberRelationshipSpecialtyStart DateEnd Date Van Youssef MD [address] [facility] [place] [address] PCP - GeneralFamily Medicine12/02/23 Reason for Visit (unrecogniz ed section and content) ReasonCommentsSkin CheckReasonCommentsDM Foot CareDM NailsReasonCommentsDM Foot CareDm NailsReasonCommentsFollow-upRt lesion follow upReasonCommentsFollow-upRt lesionsReasonCommentsTremorsReasonCommentsDM Foot CareDm nail careReasonComments DM Foot Care FOR RECORDS PERTAINING TO [...] BE BASED ON THE PRIMARY CLINICAL RECORDS. [facility] [employer] [facility]. provides no warranty or guarantee of the accuracy or completeness of information in this document.
--- OUTSIDE RECORDS SUMMARY | 2025-09-04 15:51 | XMS_ITS | CCD ---
Author Organization [facility] CliniSyhi Care Team Providers Care Nurse Private Duty Name Role Phone PHYSICIAN, DEFAULT Admitting Unavailable PHYSICIAN, DEFAULT Attending Unavailable VAN YOUSSEF Primary Care Unavailable aVn Youssef Primary Care Physician MIKAEL ., DR ARAUJO Primary Care Unavailable HOY ., DR ARAUJO Consulting Unavailable HOY ., DR ARAUJO Attending Unavailable HOY ., DR ARAUJO Admitting Unavailable ZIEBER, DR CLOVER Zimmer Consulting Unavailable LEVELOCK, DR CRAMER Consulting Unavailable HOY ., DR ARAUJO Primary Care Unavailable LEVELOCK, DR CRAMER Attending Unavailable LEVELOCK, DR CRAMER Admitting Unavailable LEVELOCK, DR CRAMER Consulting Unavailable HOY ., DR ARAUJO Primary Care Unavailable LEVELOCK, DR CRAMER Attending Unavailable LEVELOCK, DR CRAMER Admitting Unavailable HOY ., DR ARAUJO Consulting Unavailable HOY ., DR ARAUJO Primary Care Unavailable HOY ., DR ARAUJO Attending Unavailable HOY ., DR ARAUJO Admitting Unavailable LEVELOCK, DR CRAMER Consulting Unavailable HOY ., DR ARAUJO Primary Care Unavailable LEVELOCK, DR CRAMER Attending Unavailable LEVELOCK, DR CRAMER Admitting Unavailable HOY ., DR [...] Unavailable Van Youssef MD Primary Care Provider [phone] Van Youssef MD Primary Care Provider [phone] Van Youssef MD Primary Care Provider [phone] DO Bunny VERDUGOobir R Admitting UnavailDO Bunny Smithobir R Attending UnavailClover Villatoro Consulting Unavailable MD Clover Walker Consulting Unavailable [place], Clover Consulting Unavailable [place], Clover Consulting Unavailable [place] Clover Consulting Unavailable [place] Clover Consulting Unavailable [place], Clover Consulting Unavailable [place], Clover Consulting Unavailable [place], Clover Consulting Unavailable [facility], XXXX Consulting Unavailable [facility] Cardio, XXXX Consulting Unavailable Hanna Mahmoud Consulting Unavailable MD Rebeca Ferreira Consulting Unavailable Othman Mahmoud Consulting Unavailable KARTIK, Ronobir R Admitting Unavailable Bunny VERDUGOobir R Attending Unavailable [facility], XXXX Consulting Unavailable HOY, VAN M [...] MOUKARBCLARIBEL DINH Attending Unavailable AMYJEFF Attending Unavailable LEVELOCKRUTHIE Attending Unavailable LAURIERUY Attending Unavailable MOUKARBCLARIBEL DINH Referring Unavailable MOUKARBELCLARIBEL Attending Unavailable LAURIERUY Attending Unavailable MOUKARBELCLARIBEL Attending Unavailable MOUKARBEL, CLARIBEL Attending Unavailable Allergies Allergy ClassificationReported Allergen(s)Allergy TypeDate of OnsetReaction(s) Facility (20 sources)Aminolevulinic Acid; Translations: [aminolevulinic acid]Drug Allergy 62-09-3640AxhsyelHbq [facility] Repository (1 source)NITRO PATCH; Translations: [NITRO PATCH]Propensity to adverse reactions (disorder)87-29-8145[facility] (20 sources)Contrast media; Translations: [Contrast Dye]Drug allergyUnknown (qualifier value)[facility] (20 sources)Hmg-Coa Reductase Inhibitors (Statins); Translations: [statins] Allergy to hlievaayf11-82-6687[facility] (20 sources)Nitroglycerin; Translations: [nitroglycerin]Drug Sspwjdf89-48-7293 Unknown (qualifier value)[facility] (2 sources)black walnut pollen extract; Translations: [XMJLJSX-AON-YWF REDUCTASE INHIBITORS]Drug Znyvhoh40-30-5622[facility] (1 source)Iodine (And Iodine Containting Drugs)Drug allergy (disorder)05-28-2016 [facility] Repository (20 sources)NitroglycerinAllergy to rooqwigsr48-04-3415[facility] (20 sources)Iodinated Contrast Media; Translations: [IODINATED CONTRAST MEDIA] Drug Edkwzck93-82-7726HCWX [facility] (14 sources)Simvastatin; Translations: [simvastatin]Drug Sdoqusj02-80-7251 elevated liver enzymesExecutive Urology of [facility] (7 sources)Aminolevulinic Acid; Translations: [aminolevulinic acid]Drug Allergy 82-88-0032SswecxAs[facility] (7 sources)Nitroglycerin; Translations: [Nitroglycerin Patch]Drug AllergyAshtabula [facility] (2 sources)Aminolevulinic Acid; Translations: [AMINOLEVULINIC ACID HCL]Drug Rercdfc97-11-2193VimycuacpwUniversity [facility]als [facility] Rep[facility] Medications Current Medications MedicationDrug Class(es)DatesSig (Normalized)Sig (Original)acetaminophen 500 mg oral tablet (12 sources)take 2 tablets by mouth every six hours as needed for pain acetaminophen (Tylenol) 500 MG tablet Take 1,000 mg by mouth every 6 (six) hours if needed for mildpain Activeacetaminophen 325 mg / HYDROcodone bitartrate 5 mg oral tablet (4 sources)Opioid AgonistStart: 40-21-4396raku 1 tablet by mouth every six hours as needed for pain, then take 2 tablets by mouth every six hours as needed for painNorco 325 mg-5 mg oral tablet 1 tab(s), Oral, q6hr, 2 tab(s), Refill(s) 0, Take q6hrs as needed forpain., [facility]/pharmacy #[id number], 185, cm, 10/02/24 11:15:00 EST, Height/Length Dosing, 91, kg, 10/02/24 11:15:00 EST, Weight Dosing Start Date: 10/16/24 Status: Orderedacyclovir 400 mg oral tablet (20 sources)Herpesvirus Nucleoside Analog DNA Polymerase Inhibitor, Herpes Simplex Virus Nucleoside Analog DNA Polymerase Inhibitor, Herpes Zoster Virus Nucleoside Analog DNA Polymerase InhibitorStart: 27-48-2882mols 400 mg by mouth twice dailyacyclovir 400 mg, Oral, BID, Refills(s) 0, Infection or prophylaxis for antibiotics Start Date: 01/09/19 Status: Orderedalogliptin 25 mg oral tablet (20 sources)Start: 00-81-7131egld 1 tablet by mouth in the morningalogliptin (Nesina) 25 MG tablet Take 1 tablet by mouth in the morning. 11/12/2022 Active ALPRAZolam 0.25 mg oral tablet (20 sources)BenzodiazepineStart: 58-79-7029wmnp 1 tablet by mouth every eight hours [...] mg oral tablet (20 sources)Factor Xa InhibitorStart: 30-72-1221qyjq 2.5 mg by mouth twice daily Eliquis 2.5 mg, Oral, BID, Refills(s) 0, Blood Thinner Start Date: 01/09/19 Status: OrderedStart: 20-18-9017cydx 5 mg by mouth twice dailyEliquis 5 mg, Oral, BID, Refills(s) 0, Blood Thinner Start Date: 01/09/19 Status: Ordered End: 51-61-5276icvwlipn (Eliquis) 2.5 MG tablet every 12 (twelve) hours. 04/10/2025 DiscontinuedAspirin (20 sources)Platelet Aggregation Inhibitor, Nonsteroidal Anti-inflammatory Drug Start: 23-33-0590Qtkgieq Low Dose 81 mg, Daily Start Date: 06/11/25 Status: Ordered Repeat number: 1Start: 60-01-0695trzw 81 mg by mouth once dailyaspirin 81 mg, Oral, Daily, Refills(s) 0, Prophylaxis Start Date: 01/09/19 Status: Ordered Repeat number: 1take 1 tablet by mouth in the morningaspirin 81 MG EC tablet Take 1 tablet by mouth in the morning. ActiveB Complex with Vitamin C Gummy oral tablet, chewable (2 sources)Start: 17-79-1613eghp 1 tablet by mouth once dailyB Complex [...] top 500 units/g Oint PACKET (2 sources)Start: 99-60-7861nkmxgyqcbu top 500 units/g Oint PACKET Topical, BID, Refill(s) 0 Start Date: 04/18/25 Status: OrderedRepeat number: 1Symbicort (20 sources)Corticosteroid, beta2-Adrenergic AgonistStart: 16-99-3346Pyyrdjzmm 80-4.5 mcg/actuation, Inhalation, BID, Refill(s) 0, COPD Start Date: 01/09/19 Status: Ordered Repeat number: 1Start: 14-76-4972Ozeyslwfb 80-4.5 mcg/actuation, Inhalation, BID, Refill(s) 0, COPD Start Date: 01/09/19 Status: Orderedtake 2 puff(s) by inhalation in the morningbudesonide-formoterol (Symbicort) 80-4.5 MCG/ACT inhaler Inhale 2 puffs in the morning and 2 puffs before bedtime. Rinse mouth with water after use to reduce aftertaste and incidence of candidiasis. Do not swallow. Active End: 94-21-5148klrelweawh-formoterol (Symbicort) 80-4.5 MCG/ACT inhaler 1 (one) time each day at the same time. 08/01/2024 Discontinuedcetirizine hydrochloride 10 mg oral tablet (14 sources)Histamine-1 Receptor AntagonistStart: 80-55-5362qswg 1 tablet by mouth once dailycetirizine 10 [...] 500 mg oral tablet (5 sources)Quinolone AntimicrobialStart: 14-62-4525fggf 1 tablet by mouth twice dailyCipro 500 mg Tab 500 mg = 1 tab(s), Oral, BID, Start 1 day prior to procedure., # 6 tab(s), Refills(s) 0, Pharmacy: [facility]/pharmacy #[id number], 185, cm, 10/02/24 11:15:00 EST, Height/Length Dosing, 91, kg, 10/02/24 11:15:00 EST, Weight Dosing Start Date: 10/16/24 Status: OrderedStart: 96-99-3810rjam 1 tablet by mouth twice dailyCipro 500 mg Tab 500 mg = 1 tab(s), Oral, BID, Start 3 days prior to procedure., # 6 tab(s), Refills(s) 0, Pharmacy: [facility]/pharmacy #[id number], 185, cm, 08/08/24 10:28:00 EDT, Height/Length Dosing, 91, kg, 08/08/24 10:28:00 EDT, Weight Dosing Start Date: 08/11/24 Status: OrderedDaily Fiber Sugar-Free (1 source)Start: 32-54-5549xzfi 3 capsules by mouth once dailyDaily Fiber Sugar- Free 3 capsules, Oral, Daily, Refill(s) 0 Start Date: 04/14/25 Status: Ordered Repeat number: 1dapagliflozin 5 mg oral tablet (1 source)Sodium-Glucose Cotransporter 2 InhibitorStart: 36-01-8776dhdm 5 mg by mouth once dailyFarxiga 5 mg, Oral, Daily Start Date: 06/11/25 Status: Ordered Repeat number: 1diazePAM 10 mg oral tablet (4 sources)BenzodiazepineStart: 75-05-6309Eaiiyc 10 mg Tab 10 mg = 1 tab(s), Oral, Once, take one hour prior to the procedure., # 1 tab(s), Refills(s) 0, Pharmacy: [facility]/pharmacy #[id number], 185, cm, 10/02/24 11:15:00 EST, Height/Length Dosing, 91,kg, 10/02/24 11:15:00 EST, Weight Dosing Start Date: 10/16/24 Status: Ordereddicyclomine hydrochloride 10 mg oral tablet (20 sources)AnticholinergicStart: 76-55-8308thyj 10 mg by mouth twice daily dicyclomine 10 mg, Oral, BID, Refills(s) 0, Spasm Start Date: 01/09/19 Status: Ordered Repeat number: 1take 1 capsule by mouth once dailydicyclomine (Bentyl) 10 MG capsule Take 1 capsule every day by oral route. ActiveDULoxetine 20 mg delayed release oral capsule (20 sources)Serotonin and Norepinephrine Reuptake InhibitorStart: 08-01-2024 End: 15-40-8428ggut 1 capsule by mouth at bedtimeDULoxetine (Cymbalta) [address] capsule Indications: Neurogenic pain Take 1 capsule (20 mg) by mouthat bedtime 90 capsule 1 08/01/2024 Activeempagliflozin 25 mg oral tablet (20 sources)Sodium-Glucose Cotransporter 2 InhibitorStart: 55-05-7768hwwk 1 tablet by mouth in the morningempagliflozin (Jardiance) 25 MG Take 1 tablet by mouth in the morning. 11/12/2022 ActiveStart: 93-78-1954Ooxaxywxg 10 mg oral tablet 25 mg, Oral, qAM, Refills(s) 0, Blood glucose Start Date: 03/31/22 Status: Ordered Repeat number: 1Start: 03-77-0531wyij 1 tablet by mouth once daily in the morningJardiance 10 mg oral tablet 10 mg = 1 tab(s), Oral, qAM, Refills(s) 0, Blood glucose Start Date: 03/31/22 Status: Orderedezetimibe 10 mg oral tablet (20 sources)Dietary Cholesterol Absorption InhibitorStart: 04-31-6218uxhg 10 mg by mouth once dailyZetia 10 mg, Oral, Daily, Refills(s) 0, High cholesterol Start Date: 01/09/19 Status: Ordered Repeatnumber: 1ferrous sulfate (20 sources)Start: 13-94-7673udnvvfy sulfate 325 mg, BID, Refills(s) 0, Prophylaxis Start Date: 01/09/19 Status: Orderedtake 1 tablet by mouth in the morningferrous sulfate 325 (65 Fe) MG tablet Take 1 tablet by mouth in the morning and 1 tablet before bedtime. Ejzplw34 actuat fluticasone propionate 0.113 mg/actuat / salmeterol [...] 20 mg oral tablet (20 sources)Loop DiureticStart: 06-65-6501kuxj 1 mg by mouth once dailyLasix 80 mg Tab mg tab(s), Oral, Daily, Refills(s) 0 Start Date: 08/08/24 Status: Ordered Start: 75-51-5448Rrres 20 MG tablet 1 (one) time each day at the same time. 07/07/2023 ActiveStart: 91-17-2590Nlfyv 40 mg, Refills(s) 0, diuretic/water pill Start Date: 01/09/19 Status: Orderedgabapentin 600 mg oral tablet (17 sources)Anti-epileptic AgentStart: 82-57-7351qznkhofwof 600 mg, Oral, qNOON, Refills(s) 0, Neuropathy Start Date: 01/09/19 Status: Orderedglimepiride 8 mg oral tablet (20 sources)SulfonylureaStart: 91-64-5125fcdd 8 mg by mouth once daily glimepiride 8 mg, Oral, Daily, Refills(s) 0, High blood sugar Start Date: 01/09/19 Status: Ordered Repeat number: 1Start: 75-93-8999asbk 2 mg by mouth once dailyglimepiride 2 mg, Oral, Daily, Refills(s) 0, High blood sugar Start Date: 01/09/19 Status: Orderedtake 1 tablet by mouth in the morningglimepiride (Amaryl) 4 MG tablet Take 1 tablet by mouth in the morning and 1 tablet before bedtime. ActivehydrALAZINE hydrochloride 100 mg oral tablet (20 sources)Arteriolar VasodilatorStart: 01-09-2019 End: 82-86-1490xppz 100 mg by mouth twice dailyhydrALAZINE 100 [...] oral tablet (20 sources)beta-Adrenergic BlockerStart: 04-17-2025 End: 70-84-1862evcitjaji 100 mg Tab 300 mg = 3 tab(s), Tab, Oral, Start date 04/17/25 10:00:00 PM EDT, 04/16/25 7:36:00 EDT Start Date: 04/17/25 Stop Date: 04/17/25 Status: Completed Repeat number: 1Start: 04-16-2025 End: 23-81-6259khqtgvvjt 100 mg Tab 300 mg = 3 tab(s), Tab, Oral, Start date 04/16/25 10:00:00 PM EDT, 04/16/25 7:36:00 EDT Start Date: 04/16/25 Stop Date: 04/16/25 Status: Completed Repeat number: 1Start: 82-91-6627taxobupiw 300 mg Tab 300 mg = 1 tab(s), Refills(s) 0 Start Date: 06/11/25 Status: Ordered Repeat numb er: 1Start: 86-04-2624tmcd 150 mg by mouth once dailylabetalol 150 mg, Oral, Daily, Refills(s) 0, High blood pressure Start Date: 01/09/19 Status: Ordered Start: 49-59-6957rveu 300 mg by mouth once dailylabetalol 300 mg, Oral, Daily, Refills(s) 0, High blood pressure Start Date: 01/09/19 Status: Orderedtake 0.5 tablet by mouth twice dailylabetalol (Normodyne) 300 MG tablet TAKE 1/2 TABLET BY MOUTH 2 TIMES DAILY ActivelevoFLOXacin 750 mg oral tablet (20 sources)Quinolone AntimicrobialStart: 05-62-2967isrgEOPUyrui (Levaquin) 750 MG tablet 1 (one) time each day at the same time. 07/23/2023 Activelinagliptin 5 mg oral tablet (13 sources)Dipeptidyl Peptidase 4 InhibitorStart: 01-17-9945fcde 5 mg by mouth once dailyTradjenta 5 mg, Oral, Daily Start Date: 06/11/25 Status: Ordered Repeat number: 1Loratadine (13 sources)Start: 71-09-3017iucasohekk 10 mg, Daily Start Date: 06/11/25 Status: Ordered Repeat number: 1take 1 tablet by mouth once dailyloratadine (Claritin Reditabs) 10 MG disintegrating tablet Take 10 mg by mouth Daily Activemagnesium oxide 500 mg oral tablet (20 sources)Start: 74-33-4332owvu 500 mg by mouth three times dailymagnesium oxide 500 mg, Oral, TID, Refills(s) 0, Prophylaxis Start Date: 08/28/20 Status: Ordered Repeat number: 1Start: 37-48-8836esfm 500 mg by mouth once daily magnesium oxide 500 mg, Oral, Daily, Refills(s) 0, Prophylaxis Start Date: 08/28/20 Status: OrderedStart: 41-24-4903cxbzkrzaf oxide Oral, Refills(s) 0 Start Date: 08/28/20 Status: OrderedmetFORMIN hydrochloride 500 mg oral tablet (20 sources)BiguanideStart: 05-35-5979yeej 1 tablet by mouth three times daily metformin 500 mg Tab 500 mg = 1 tab(s), Oral, TID, Refills(s) 0 Start Date: 08/08/24 Status: OrderedRepeat number: 1Start: 08-28-2020 End: 84-10-0318ovvq 1 mg by mouth once dailymetformin 500 mg ER Tab mg tab(s), Oral, Daily, Refills(s) 0 Start Date: 08/28/20 Status: Orderedmetoclopramide 5 mg oral tablet (20 sources)Dopamine-2 Receptor AntagonistStart: 64-19-7495pulh 5 mg by mouth twice dailymetoclopramide 5 mg, Oral, BID, Refills(s) 0, Control of stomach acid Start Date: 01/09/19 Status: Orderedmetoclopramide (Reglan) 5 MG tablet every 12 (twelve) hours Activemupirocin 20 mg/ml topical cream (6 sources)RNA Synthetase Inhibitor AntibacterialStart: 78-25-4028hcjezstou Top 2% Crm Refill(s) 0 Start Date: 08/08/24 Status: Cxuzyqs55 hr NIFEdipine 90 mg extended release oral tablet (20 sources)Dihydropyridine Calcium Channel BlockerStart: 87-04-0436mrak 90 mg by mouth twice dailyNIFEdipine 90 mg, Oral, BID, Refills(s) 0, High blood pressure Start Date: 01/09/19 Status: OrderedStart: 79-93-5877zahq 90 mg by mouth once dailyNIFEdipine 90 mg, Oral, Daily, Refills(s) 0, High blood pressure Start Date: 01/09/19 Status: Ordered End: 87-14-7891jwxv 1 tablet by mouth twice dailyNIFEdipine XL (Procardia XL) 60 MG 24 hr tablet Take 1 tablet twice a day by oral route for 90 days. 08/01/2024 DiscontinuedNuLYTELY Lemus oral powder for reconstitution (1 source)Start: 35-22-9557aleq 1 dose by mouth once dailyNuLYTELY Lemus oral powder for reconstitution See Instructions, 1 EA, Refill(s) 0, 240 mL Oral Daily Prior to colonoscopy Per physician's instructions, [facility]/pharmacy #[id number], 185, cm, 03/31/22 9:58:00 EDT, Height/Length Dosing, 101, kg, 03/31/22 9:58:00 EDT, Weight Dosing Start Date: 03/31/22 Status: Orderedomeprazole 20 mg delayed release oral capsule (20 sources)Proton Pump InhibitorStart: 35-87-1575deoysqbtlr 20 mg Cap-DR 20 mg = 1 cap(s) Start Date: 06/11/25 Status: Ordered Repeat number: 1Start: 01-09-2019 omeprazole 20 mg, Oral, Daily, Refills(s) 0, Control of stomach acid Start Date: 01/09/19 Status: Ordered Repeat number: 1Start: 07-96-0272mkhw 20 mg by mouth twice dailyomeprazole 20 mg, Oral, BID, Refills(s) 0, Control of stomach acid Start Date: 01/09/19 Status: Orderedtake 2 capsules by mouth once dailyomeprazole (PriLOSEC) [address] capsule Take 2 capsules every day by oral route for 90 days. Activephenazopyridine hydrochloride 100 mg oral tablet (1 source)Start: 10-16-2024 End: 01-83-6811Wshlelom 100 mg Tab 100 mg = 1 tab(s), Oral, TID, Take TID as needed., X 2 week(s), # 42 tab(s), Refills(s) 0, Pharmacy: [facility]/pharmacy #[id number], 185, cm, 10/02/24 11:15:00 EST, Height/Length Dosing, 91, kg, 10/02/24 11:15:00 EST, Weight Dosing Start Date: 10/16/24 Stop Date: 10/30/24 Status: Ordered pioglitazone 30 mg oral tablet (20 sources)Peroxisome Proliferator Receptor alpha Agonist, Peroxisome Proliferator Receptor gamma Agonist, ThiazolidinedioneStart: 08-28-2020 pioglitazone 30 mg Tab 45 mg, Oral, Daily, Refills(s) 0, Blood glucose Start Date: 08/28/20 Status:Ordered Repeat number: 1Start: 08-28-2020 End: 63-87-7128lzmr 1 tablet by mouth once dailypioglitazone 30 mg Tab 30 mg = 1 tab(s), Oral, Daily, Refills(s) 0, Blood glucose Start Date: 08/28/20 Status: Orderedtake 1 tablet by mouth once dailypioglitazone (Actos) 45 MG tablet TAKE 1 TABLET BY MOUTH EVERY DAY for 90 Activepolyethylene glycol 3350 58554 mg powder for oral solution (12 sources)Osmotic Laxativetake 17 g by mouth every twenty-four hours as needed polyethylene glycol, PEG, 3350 (Miralax) 17 g packet Take 17 g by mouth Daily as needed ActiveKlor-Con (20 sources)Start: 08-88-3990Gwsv-Con 20 mEq, Oral, Daily, Refills(s) 0, Prophylaxis Start Date: 01/09/19 Status: Ordered Repeat number: 1Start: 24-34-8635Sxpa-Con 20 mEq, Oral, Daily, Refills(s) 0, Prophylaxis Start Date: 01/09/19 Status: Orderedtake 1 tablet by mouth in the morningKLOR-CON 20 MEQ ER tablet Take 1 tablet by mouth in the morning and 1 tablet before bedtime. Active take 20 mEq by mouth once dailypotassium chloride (Klor-Con) 20 MEQ packet Take 20 mEq by mouth Daily ActivePred Mild (20 sources)CorticosteroidStart: 96-46-9913soxl 1 drop(s) into the eye(s) twice dailyPred Mild 1 drop(s), Eye-Both, BID, Refill(s) 0, Inflammation Start Date: 01/09/19 Status: Ordered Repeat number: 1Start: 55-50-4131gwfw 1 drop(s) into the eye(s) three times dailyPred Mild 1 drop(s), Eye-Both, TID, Refill(s) 0, Inflammation Start Date: 01/09/19 Status: OrderedStart: 88-71-4867lmvp 1 drop(s) into the eye(s) twice dailyPred Mild 1 drop(s), Eye-Both, BID, Refill(s) 0, Inflammation Start Date: 01/09/19 Status: Orderedtake 1 drop(s) into the eye(s) three times dailyprednisoLONE acetate (Pred-Forte) 1 % ophthalmic suspension INSTILL 1 DROP INTO RIGHT EYE 3 TIMES ADAY DIRECTED Activeprimidone 250 mg oral tablet (20 sources)Anti-epileptic AgentStart: 08-01-2024 End: 96-70-3679eolrsfgnr (Mysoline) 250 MG tablet Indications: Benign essential tremor 1/2 tab BID 90 tablet 1 04/10/2025 ActiveStart: 01-11-2024 End: 23-63-1220gbaruvaig (Mysoline) 50 MG tablet Indications: Benign essential tremor 1 tab TID 270 tablet 3 01/11/2024 08/01/2024 Discontinued (Reorder)Start: 15-43-1045mmar 2 tablets by mouth twice dailyprimidone 50 [...] mg oral tablet (18 sources)Factor Xa InhibitorStart: 31-65-6864qnpg 1 tablet by mouth once daily in the eveningXarelto 15 mg oral tablet 15 mg = 1 tab(s), Oral, qPM, Refills(s) 0 Start Date: 04/14/25 Status: Ordered Repeat number: 1SITagliptin 100 mg oral tablet (19 sources)Dipeptidyl Peptidase 4 InhibitorStart: 40-42-9851voat 100 mg by mouth once dailyJanuvia 100 mg, Oral, Daily, Refill(s) 0, High blood sugar Start Date: 01/09/19 Status: Ordered Repeat number: 1Spiriva Respimat 1.25 mcg/inh inhalation aerosol (1 source)Start: 97-16-0039Wwtuzbt Respimat 1.25 mcg/inh inhalation aerosol 2 puff(s), Inhalation, Daily, Refill(s) 0, COPD Start Date: 01/09/19 Status: Orderedspironolactone 25 mg oral tablet (14 sources)Aldosterone AntagonistStart: 41-00-9899selb 1 tablet by mouth once dailyspironolactone 25 mg Tab 25 mg = 1 tab(s), Oral, Daily, Refills(s) 0 Start Date: 04/14/25 Status: Ordered Repeat number: 1tamsulosin hydrochloride 0.4 mg oral capsule (20 sources)alpha-Adrenergic BlockerStart: 01-09-2019 End: 34-23-5964lkal 0.4 mg by mouth once dailyFlomax 0.4 mg, Oral, Daily, Refills(s) 0, Urinary discomfort Start Date: 01/09/19 Status: Ordered Repeat number: 160 actuat tiotropium 0.46956 mg/actuat inhalation spray (20 sources)AnticholinergicStart: 50-04-0716Tvyehrv Respimat 1.25 mcg/inh inhalation aerosol 2 puff(s), Inhalation, Daily, Refill(s) 0, COPD Start Date: 01/09/19 Status: Ordered Repeat number: 1take 1 capsule by inhalation in the morningtiotropium (Spiriva) [address] 1 capsule into inhaler and inhale in the morning. ActiveVitamin D3 2000 intl units (2 sources)Start: 43-34-3882hkxw 2000 [IU] by mouth once dailyVitamin D3 2000 intl units 2,000 unit(s), Oral, Daily, Refills(s) 0 Start Date: 04/14/25 Status: Ordered Repeat number: 1 Completed/Discontinued Medications MedicationDrug Class(es)DatesSig (Normalized)Sig (Original)Bacillus Coagulans- Inulin (Align Prebiotic-Probiotic) 5-1.25 MG-GM chewable tablet (9 sources) End: 29-48-4937Tnczkfry Coagulans-Inulin (Align Prebiotic-Probiotic) 5-1.25 MG- GM chewable tablet 1 capsule 1 (one) time each day at the same time. 08/01/2024 DiscontinuedBacillus Coagulans-Inulin (Align Prebiotic-Probiotic) 5-1.25 MG-GM chewable tablet 1 capsule 1 (one) time each day at the same time. Active betamethasone 0.5 mg/ml / clotrimazole 10 mg/ml topical cream (8 sources)Azole Antifungal, CorticosteroidStart: 05-98-5516kqvmyrvrsdzlu- clotrimazole Top 0.05%-1% Crm 15 gram Refill(s) 0 Start Date: 08/08/24 Status: OrderedRepeat number: 1bifidobacterium infantis 4 mg oral capsule (16 sources)Start: 06-10-2023 End: 23-59-0830raog 1 capsule by mouth once dailyProbiotic Product (Align) capsule TAKE 1 CAPSULE BY MOUTH DAILY AFTER COMPLETING THE ANTIBIOTICS COURSE 06/10/2023 08/01/2024 DiscontinuedStart: 14-44-7874luxd 1 capsule by mouth once dailyAlign 4 mg oral capsule 4 mg = 1 cap(s), Oral, Daily, Take after completing the Antibiotics course,# 28 cap(s), Refills(s) 0, Pharmacy: [facility]/pharmacy #[id number], 185, cm, 08/28/20 12:05:00 EDT, Height/Length Dosing, 103.7, kg, 08/28/20 12:05:00 EDT, Weight Dosing Start Date: 08/28/20 Status: OrderedcloNIDine hydrochloride 0.2 mg oral tablet (20 sources)Central alpha-2 Adrenergic AgonistStart: 80-37-3000qxwz 0.1 mg by mouth twice dailyclonidine 0.1 mg, Oral, BID, Refills(s) 0, High blood pressure Start Date: 01/09/19 Status: OrderedStart: 01-09-2019 End: 89-33-2618Zsmelqvx 0.2 mg Tab 0.2 mg = 1 tab(s), Tab, Oral, Start date 04/18/25 9:00:00 AM EDT, 04/16/25 7:30:00 EDT Start Date: 04/18/25 Stop Date: 04/18/25 Status: Completed Repeat number: 1labetalol 5 mg/mL IV Eda (1 source)Start: 04-14-2025 End: 08-57-2488wqsamzmlw 5 mg/mL IV Eda 5 mg = 1 mL, Injection, IV Push, q15min PRN Other (see comment), Routine, Start date 04/14/25 9:58:00 PM EDT, 04/14/25 21:58:00 EDT Start Date: 04/14/25 Stop Date: 04/16/25 Status: Discontinued Repeat number: 1psyllium 525 mg oral capsule (20 sources)Start: 18-31-7030pnnp 8 capsules by mouth once dailyMetamucil 525 mg oral capsule 1,050 mg = 2 cap(s), Oral, Daily, Take 2 hour apart from the other medications with at least 8 ounces of water, # 160 cap(s), Refills(s) 1, Pharmacy: [facility]/pharmacy #[id number], cm, 08/28/20 12:05:00 EDT, Height/Length Dosing, [...] (1 source)Abdominal pain; Translations: [Unspecified abdominal pain]Onset: 63-50-8619ZwavjkvrFetpr cerebrovascular disease (1 source)Cerebral infarction; Translations: [Cerebral infarction, unspecified] Onset: 88-00-0072CvnkrjyVqlwu cerebrovascular disease (1 source)Acute cerebrovascular diseaseOnset: 88-37-0566Ojtxkzp disorders (2 sources)Anxiety disorder, unspecified; Translations: [F41.9]Onset: 04-18-2025 ChronicAsthma (19 sources)Ryblus29-73-7572PvipyrkIvssooo dysrhythmias (6 sources)Unspecified atrial fibrillation; Translations: [Cardiac arrhythmia, unspecified]Onset: 11-95-7348ZlssdwmJreceqb dysrhythmias (2 sources)Palpitations; Translations: [Palpitations]Onset: 18-13-8898Qdndsirc Chronic kidney disease (1 source)Chronic kidney disease; Translations: [Chronic kidney disease, unspecified]Onset: 60-39-0295RkugjbtJymptns kidney disease (8 sources)Chronic kidney disease; Translations: [CHRONIC KIDNEY DISEASE STAGE 3B]Onset: 67-45-5245Fgulgbhgvl disorders (4 sources)Left bundle-branch block, unspecified; Translations: [Left bundle- branch block, unspecified]Onset: 12-23-8824YlpbvpwErkwdmytbg heart failure; nonhypertensive (5 sources)Heart failure; Translations: [Heart failure, unspecified]Onset: 55-02-8460NfbvdgyPrxqdxgb atherosclerosis and other heart disease (6 sources)Unstable angina; Translations: [Chronic ischemic heart disease, unspecified]Onset: 08-99-4001IelflxuFbnzpdfmob and other anemia (1 source)Anemia, unspecified; Translations: [ANEMIA UNSPECIFIED]Onset: 11-71-7477TkibozmeQmursigg mellitus with complications (18 sources)Type 2 diabetes mellitus with hyperglycemia; Translations: [Type 2 diabetes mellitus with diabetic chronic kidney disease]Onset: 08-27-2022 44-13-2301UqzsyyrAvozgdxz mellitus without complication (20 sources)Diabetes mellitus; Translations: [Type 2 diabetes mellitus without complications]Onset: 313749-57-5132YdzgbjlAouixmxtd of lipid metabolism (6 sources)Hyperlipidemia, unspecified; Translations: [Mixed hyperlipidemia] Onset: 05-05-6893IveqpujFhosduxomgdwxh and diverticulitis (18 sources)Diverticula of intestine; Translations: [Diverticulosis of intestine, part unspecified, without perforation or abscess without bleeding] Onset: 78-85-9644EkqtgrdJantsadqb hypertension (5 sources)Essential (primary) hypertension; Translations: [ESSENTIAL PRIMARY HYPERTENSION]Onset: 72-99-0013PsiywmdMxfjo and electrolyte disorders (5 sources)Hypo-osmolality and hyponatremia; Translations: [Hyperkalemia]Onset: 02-50-6814TjbadrrhSsskioqtibkam symptoms and ill-defined conditions (4 sources)Post-void dribbling; Translations: [Post-micturition incontinence ] Onset: 40-91-6143GgqrxcrGbkjunypmlqbi symptoms and ill-defined conditions (18 sources)Retention of urine; Translations: [Retention of urine, unspecified] Onset: 08-31-5132HmqydxdeOewbo valve disorders (15 sources)Nonrheumatic aortic (valve) stenosis; Translations: [Rheumatic tricuspid insufficiency]Onset: 35-71-1768BvydbmxKyoyvgxzvyj (18 sources)Hemorrhoids; Translations: [Unspecified hemorrhoids]Onset: 40-63-8268YxqyjlwdWofuilyvhsw of prostate (15 sources)Benign prostatic hypertrophy with outflow obstruction; Translations: [Benign prostatic hyperplasia with lower urinary tract symptoms]Onset: 46-28-6260OunqalxMpepgemxogbt with complications and secondary hypertension (4 sources)Hypertensive chronic kidney disease with stage 1 through stage 4 chronic kidney disease, or unspecified chronic kidney disease; Translations: [Hypertensive urgency ]Onset: 84-08-4152CwwrzkvHyodyubtiwiq conditions of male genital organs (11 sources)Balanitis; 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]Onset: 84-98-1043PhdfkmnTlnw effects of cerebrovascular disease (20 sources)Sequelae of cerebral infarction; Translations: [Unspecified sequelae of cerebral infarction]Onset: 176104-56-6813FcglmplDwxqokv (12 sources)Pain in toe; Translations: [Tinea unguium]75-74-4040WldwsmvbGgiquo and vomiting (12 sources)Nausea; Translations: [Nausea]Onset: 09-71-9351XhdausjzEieccgbpibu chest pain (2 sources)Chest pain, unspecified; Translations: [Chest pain, unspecified] Onset: 32-61-0111HeetubqsQczuybbekuy deficiencies (2 sources)Vitamin D deficiency, unspecified; Translations: [Vitamin D deficiency, unspecified]Onset: 15-01-3547OarriccCamlqsambua deficiencies (10 sources)Cobalamin deficiency; Translations: [Deficiency of other specified B group vitamins]Onset: 555898-72-9384AwdtoxlmCqbtjiyai or stenosis of precerebral arteries (20 sources)Bilateral stenosis of carotid arteries; Translations: [Occlusion and stenosis of bilateral carotid arteries]Onset: 648749-40-0195KpnjibuNzofs aftercare (3 sources)Long-term current use of anticoagulant; Translations: [FPC (current) use of anticoagulants]Onset: 41-64-8201QwbgheyaSxwjl aftercare (1 source)Long-term current use of drug therapy; Translations: [Other terminal supervisor (current) drug therapy]Onset: 52-10-8987QrryyqeqLqitt and unspecified benign neoplasm (20 sources)History of polyp of colon; Translations: [Personal history of colonic polyps]Onset: 25-29-3558UhhkjeiiInuxn and unspecified benign neoplasm (20 sources)Polyp of colon; Translations: [Polyp of colon]Onset: 06-09-2022 68-02-8367ZqlzwwshFdnzm and unspecified benign neoplasm (2 sources)Melanocytic nevus of trunk; Translations: [Melanocytic nevi of trunk] 85-35-2773RsgsngevQmyya circulatory disease (2 sources)Personal history of transient ischemic attack (TIA), and cerebral infarction without residual deficits; Translations: [Personal history of transient ischemic attack (TIA), and cerebral infarction without residual deficits]Onset: 41-04-7329FsodhxleVwrvm connective tissue disease (16 sources)Pain in right foot; Translations: [Pain in right foot]09-08-2024 EpisodicOther diseases of bladder and urethra (3 sources)Detrusor overactivity; Translations: [Overactive bladder]Onset: 97-10-8284LozasghPdqoa diseases of bladder and urethra (8 sources)Overactive ymrhrfu38-59-3302PilmzdlDdzzv diseases of kidney and ureters (2 sources)Urinary tract obstruction; Translations: [Other obstructive and reflux uropathy]Onset: 59-22-2038WkwkaltuPtzcv gastrointestinal disorders (19 sources)Chronic constipation with wrcbumlw76-51-2148DhjgxotwQowjg gastrointestinal disorders (4 sources)Other fecal abnormalities; Translations: [OTHER FECAL ABNORMALITIES] Onset: 72-07-8836HfpbawiuJfjdo gastrointestinal disorders (18 sources)Urgent desire for stool; Translations: [Fecal urgency]Onset: 20-83-0566AhdprizbCxuai gastrointestinal disorders (2 sources)Abnormal feces; Translations: [Other fecal abnormalities]Onset: 45-66-2152YghywfweKkdki gastrointestinal disorders (16 sources)Loose yptam24-80-8679ZahlhbbeMaxos gastrointestinal disorders (14 sources)Abdominal wind pain; Translations: [Gas pain]Onset: 06-10-2023 EpisodicOther gastrointestinal disorders (2 sources)Constipation, unspecified; Translations: [Constipation, unspecified] Onset: 06-90-5142CmjnhtkgBvqwk gastrointestinal disorders (11 sources)Xwktlgyawiux87-91-2616QhmotsluIcwwj gastrointestinal disorders (1 source)Other constipation; Translations: [Other constipation]Onset: 70-02-2633GslampwcNfiom hereditary and degenerative nervous system conditions (20 sources)Essential tremor; Translations: [Essential tremor]Onset: 01-07-2024 95-16-0848MsfmssiSgsxa male genital disorders (11 sources)Acquired buried penis; 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]Onset: 65-31-2498PasalxsNmmgw nervous system disorders (20 sources)Polyneuropathy; Translations: [Polyneuropathy, unspecified]Onset: 054432-93-3857DmcilmlWieec skin disorders (2 sources)Actinic keratosis; Translations: [Actinic keratosis]08-24-2024 EpisodicOther skin disorders (2 sources)Lentiginosis; Translations: [Other melanin hyperpigmentation] 53-57-4914WrlldfmeRkyrj skin disorders (2 sources)Seborrheic keratosis; Translations: [Other seborrheic keratosis] 57-15-8863ZyyqyxwmPiqd-; endo-; and myocarditis; cardiomyopathy (except that caused by tuberculosis or sexually transmitted disease) (1 source)Pericardial effusion - noninflammatory; Translations: [Other pericardial effusion (noninflammatory)]Onset: 32-76-4194VrcokmhyCjvsnfuwq; thrombophlebitis and thromboembolism (1 source)History of thromboembolism of vein; Translations: [Personal history of other venous thrombosis and embolism]Onset: 23-65-8649AjebewxrZmvyjgfv; pneumothorax; pulmonary collapse (2 sources)Pleural effusion, not elsewhere classified; Translations: [Pleural effusion, not elsewhere classified]Onset: 17-45-8302McpkkpxzTfxxavcwd heart disease (4 sources)Pulmonary hypertension, unspecified; Translations: [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 disease]Onset: 78-53-0712HsoxxmgZibnwwdx codes; unclassified (1 source)Sleep apnea, unspecified; Translations: [SLEEP APNEA UNSPECIFIED] Onset: 95-31-6082CvsjavnVdkmezcx codes; unclassified (20 sources)Obstructive sleep apnea syndrome; Translations: [Obstructive sleep apnea (adult) (pediatric)]Onset: 259595-89-1235PaxawlbYctpyuzj codes; unclassified (7 sources)Family history of malignant neoplasm of digestive organ; Translations: [Family history of malignantneoplasm of digestive organs]Onset: 60-87-5586UsgtwsslWehfkojr codes; unclassified (19 sources)Family history of cancer of -16-6046PcrsgxsbRbcfxeub codes; unclassified (6 sources)Localized edema; Translations: [LOCALIZED EDEMA]Onset: 11-02-2022 EpisodicResidual codes; unclassified (1 source)Pain, unspecified; Translations: [Pain, unspecified]Onset: 02-15-2025 EpisodicUnclassified (4 sources)CHRN KIDNEY DISEASE STG 3 UNSP; Translations: [CHRN KIDNEY DISEASE STG 3 UNSP]Onset: 16-05-9763Nlxtbwchvvyk (3 sources)CONTACT W/AND (SUSP) EXPOS COVID-19; Translations: [CONTACT W/AND (SUSP) EXPOS COVID-19]Onset: 62-10-9718Sarqrcsqgjjh (1 source)COUGH, UNSPECIFIED; Translations: [COUGH, UNSPECIFIED]Onset: 34-21-9083Hmfrqigrdpod (11 sources)Finding of sensation of ivzdijz40-51-1766Fugfcibbksso (8 sources)Drug therapy -68-5201Fsgcjdtcovqa (2 sources)Longstanding persistent atrial fibrillation; Translations: [Longstanding persistent atrial fibrillation]Onset: 17-84-5930Aqbtdymzudct (1 source)Other pericardial effusion (noninflammatory); Translations: [Other pericardial effusion (noninflammatory)]Onset: 18-87-2848Fkdod infection (16 sources)Verruca plantaris; Translations: [Plantar wart]68-48-2642Pbtfirub Viral infection (3 sources)COVID-19; Translations: [COVID-19]Onset: 07-18-2022 Past or Other Problems Problem ClassificationProblemDateDocumented DateEpisodic/ChronicAcute and unspecified renal failure (1 source)Acute kidney failure, unspecified; Translations: [ACUTE KIDNEY FAILURE UNSPECIFIED]Onset: 18-46-5623RufwpinvBbovfuqmf infection; unspecified site (1 source)Unspecified Escherichia coli [E. coli] as the cause of diseases classified elsewhere; Translations:[UNS E COLI CAUSE DX CLASS ELSEWHERE]Onset: 63-47-8751KwwhywfiUeoiyip and fatigue (2 sources)Weakness; Translations: [Other fatigue]Onset: 17-19-9546HzauzusxOmwix aftercare (1 source)FPC (current) use of aspirin; Translations: [TAX INTERN CURRENT USE OF ASPIRIN]Onset: 95-03-2115SjcaxgjoBpotr aftercare (1 source)FPC (current) use of anticoagulants; Translations: [TAX INTERN CURRNT USE ANTICOAGULANTS]Onset: 22-38-1611AmmjkjufYowxq aftercare (1 source)Other terminal supervisor (current) drug therapy; Translations: [OTH TAX INTERN CURRENT DRUG THERAPY]Onset: 78-26-7024QwpedmzlDyglp circulatory disease (1 source)Other specified symptoms and signs involving the circulatory and respiratory systems; Translations:[OTH SPEC SX SIGNS INVLV CIRC RS]Onset: 83-46-2125WuikbbjaVvhvq connective tissue disease (20 sources)Spasm of cervical paraspinous muscle; Translations: [Other muscle spasm]Onset: 058817-05-7276SgkfcrjgEoqfh connective tissue disease (20 sources)Neurogenic pain; Translations: [Neuralgia and neuritis, unspecified] Onset: 851671-19-6268ThnvkbaoGhgsm connective tissue disease (2 sources)Pain of toes of bilateral feet; Translations: [Pain in right toe(s)] 31-93-4795HktxjzfiYfrln connective tissue disease (2 sources)Other symptoms and signs involving the musculoskeletal system; Translations: [Other symptoms and signs involving the musculoskeletal system] Onset: 76-48-4631JzbhlgkmPnzdb lower respiratory disease (2 sources)Shortness of breath; Translations: [Shortness of breath]Onset: 12-91-2830OrngwpinSiiaf nervous system disorders (10 sources)Tremor; Translations: [Tremor, unspecified]Onset: 01-07-2024 59-11-9750BpvvtgqkWkfgk screening for suspected conditions (not mental disorders or infectious disease) (3 sources)Raised prostate specific antigen; Translations: [Elevated prostate specific antigen [PSA]]Onset: 51-43-9440XkmmrotnMiqyj skin disorders (6 sources)Asteatosis cutis; Translations: [Xerosis cutis]20-11-4246Ozjhwlbj Residual codes; unclassified (1 source)Edema, unspecified; Translations: [EDEMA UNSPECIFIED]Onset: 08-27-2022 EpisodicUnclassified (20 sources)Parkinson's disease; Translations: [Parkinson disease]Onset: 01-07-2024 Resolved: 028953-38-9660AzpdqjnXpzadwaezbox (1 source)CHRN KIDNEY DISEASE STG 3 UNSP; Translations: [CHRN KIDNEY DISEASE STG 3 UNSP]Onset: 75-08-6602Qyvhpbwpfnos (1 source)CONTACT W/AND (SUSP) EXPOS COVID-19; Translations: [CONTACT W/AND (SUSP) EXPOS COVID-19]Onset: 38-44-6775Hgzagxqgcccu (1 source)Other pericardial effusion (noninflammatory); Translations: [Other pericardial effusion (noninflammatory)]Onset: 75-14-3237Musrahs tract infections (1 source)Urinary tract infection, site not specified; Translations: [UTI SITE NOT SPECIFIED]Onset: 98-70-9670Cooyhztr Results Test NameValueInterpretationReference WwakuAfoushms09fu [id number] authorization request for Savaysa 30mg. Prior authorization processed and submitted to patient's insurance, awaiting determination from insurance in response to medication coverage. Cover My Meds [place]# [id number]d Clinic Avon HospitalTelephoneon [id number] Nadir Beth 1940 M Date Provider Department Center 08/03/2025 [id number]-FCYSCIERRA BRICEÑO Ericka CARD [facility] Family History Problem Relation Age of Onset Coronary artery disease Father Family Status - Relation Status Age at Mother Father DeceasedNormalUniversCleveland Clinic Avon HospitalFollow-Upon 08-01-2025 Follow-[id number] Nadir Beth 1940 M Date Provider Department Center 08/01/2025 321-RUTHIE LINDA [facility] NEPHRO Comprehensiv Family History Problem Relation Age of Onset Coronary artery disease Father Family Status - Relation Status Age at Mother Father Level of Service:69675 [place] OFFICE/OUTPATIENT ESTABLISHED MOD MDM 30 MIN Reason for Visit and Comments: Electrolyte Disorders [542] Follow-up [558676] - CKDNormalUniversCleveland Clinic Avon HospitalOrders Onlyon 36-86-8953Hytpkh [id number] Nadir Beth 1940 M Date Provider Department Center 07/31/2025 [id number], HISTORICAL MILKA Dominguez Hos Family History Problem Relation Age of Onset Coronary artery disease Father Family Status - Relation Status Age at Mother Father DeceasedNormalUniFairfield Medical Center29on Addended by: HUONG JEAN on: 08/03/2025 08:37 AM Modules accepted: OrdersNormalUniFairfield Medical CenterDocumentationon [id number] Nadir Beth Joy 1940 M Date Provider Department Center 07/30/2025 [id number]-GVVXWHUONG JEAN PHARMACO Medical Pavi Family History Problem Relation Age of Onset Coronary artery disease Father Family Status - Relation Status Age at Mother Father Reason for Visit and Comments: Pharmacist Consult - Referral [Other][facility] Office Visiton 88-29-6522Wkdkxz-up [id number] Nadir Beth Joy 1940 [facility] Provider Department Center 07/30/2025 [id number]-DUODFPRUY KING MILKA Beckett Family History Problem Relation Age of Onset Coronary artery disease Father Family Status - Relation Status Age at Mother Father Level of Service:50355 LA OFFICE/OUTPATIENT ESTABLISHED MOD MDM 30 MIN Reason for Visit and Comments: Follow-up [175270] - 1 month follow up. Patient is now in assisted living and they are requesting a check up Valve Disorder [3372] - Aortic valve Atherosclerosis of renal artery [Other] Coronary Artery Disease [187] Bradycardia [930299] Hypertension [720655] Congestive Heart Failure [127] Pulmonary Hypertension [818] Hyperlipidemia [182] Hypertensive heart desease chronic kidney failure stage 1 t [Other] Atrial Fibrillation [80][facility] 58-39-3276Vsbjtm-up [id number] Nadir Beth 1940 M Date Provider Department Center 06/18/2025 CLARIBEL VILLALOBOS MILKA Beckett Family History Problem Relation Age of Onset Coronary artery disease Father Family Status - Relation Status Age at Mother Father Level of Service:28084 [place] OFFICE/OUTPATIENT ESTABLISHED MOD MDM 30 [facility]Or[facility] Onlyon 63-50-5533Dvexym [id number] Nadir Beth 1940 M Date Provider Department Center 06/14/2025 [id number], HISTORICAL CARD Alberto Hos Family History Problem Relation Age of Onset Coronary artery disease Father Family Status - Relation Status Age at Mother Father DeceasedNormalUniversCleveland Clinic Avon HospitalUrology Office/Clinic Noteon 24-83-3113Rzytjna Office/Clinic NoteUrology Office/Clinic Note Chief Complaint pt [...] out of his penis. Pt presented to [facility] 10/28/24 due to clot retention. Seen [...] Given Patient Refuses SARS-C (more content not included)...[facility] HospitalComment on above:Result Comment: Electronically Signed By: LU [...] MARQUIS LOUISE MD Where: [facility] [address], [address] [place] [address]- Medications What How Much When Why Instructions [...] Contact prescribing physician i (more content not included)...[facility]36on [phone] called patient lvm to contact office back to reschedule appointment with .[facility] 99-85-5216Ectnkp- up [id number] Nadir Beth 1940 M Date Provider Department Center 05/28/2025 RUY ESQUIVEL Family History Problem Relation Age of Onset Coronary artery disease Father Family Status - Relation Status Age at Mother Father Level of Service:88263 [place] OFFICE/OUTPATIENT ESTABLISHED MOD MDM 30 [facility] HospitalOr[facility] Onlyon 69-64-9481Phrfgi [id number] Nadir Beth 1940 M Date Provider Department Center 05/28/2025 RUY ESQUIVEL Family History Problem Relation Age of Onset Coronary artery disease Father Family Status - Relation Status Age at Mother Father DeceasedNormalUniFairfield Medical [id number] Case Management Update Barriers to Discharge: Patient is to discharge to senior care facility [facility] today. Stretcher transport has been established with [facility], pickle solution maker time 1934. Diet: Dietary Orders (From admission, [...] Request Once Comments: Omelet with green pepper, congolese cheese and onion Wheat toast Sausage Raisin bran Milk Decaf coffee 05/17/25 0802 05/16/25 1553 Special Kitchen Request Once Comments: [place] burger with cheese On the side: tomato, [...] Request Once Comments: Omelet with green pepper, congolese cheese and onion, 1 slice wheat toast, [...] Reason for OT? Answer: gait abnormality 05/10/25 0411NoalUniFairfield Medical Center30The patient is Moderately Stable - [...] Goal: Maintains hematologic stability Outcome: ProgressingNormalUniversity of [facility] WITH AUTO DIFFERENTIALon 67-56-9460Nspkosnraam distribution width (RBC) [Ratio]19.8 %High 11.5-15.0UnClermont County HospitalComment on above:Performed By: #### [id number] #### [facility] ([facility]) [address] [place], [place] [address]CVXPCJZXYKX MEAN CORPUSCULAR HEMOGLOBIN CONCENTRATION (G/DL) BY YHSVLPRCZ88.4 g/dLLow32.0-35.0UnClermont County HospitalComment on above:Performed By: #### [id number] #### [facility] ([facility]) [address] [place], [place] [address]Wcrupygzqk (Bld) [Volume fraction]34.2 %Low39.0-50.0UnClermont County HospitalComment on above:Performed By: #### [id number] #### [facility] ([facility]) [address] [place], [place] [address]Yiwcxtyvov (Bld) [Mass/Vol]10.4 g/dLLow13.0-17.0UnClermont County HospitalComment on above:Performed By: #### [id number] #### [facility] ([facility]) [address] [place], [place] [address]EMR (RBC) [Entitic mass]25.6 pgLow27.0-33.0UnClermont County HospitalComment on above:Performed By: #### [id number] #### [facility] ([facility] [address] [place], [place] [address]NQP (RBC) [Entitic vol]84.2 cEZgeznu30.0-98.0[facility] [place] Medical CenterComment on above:Performed By: #### [id number] #### [facility] ([facility]) [address] [place] [address]DQMD (PER 100 WBCS) BY AUTOMATED COUNT0.0 %Xohmht9NwzqtvlnxzClermont County HospitalComment on above:Performed By: #### [id number] #### [facility] ([facility]) [address] [place] [address]PLZPJFVAD (10*3/UL) IN BLOOD AUTOMATED EXQSR295 10*3/uLNormal 150-400UnClermont County HospitalComment on above:Performed By: #### [id number] #### [facility] ([facility]) [address] [address]IGI (Bld) [#/Vol]4.06 10*6/uLLow4.20-5.70UnClermont County HospitalComment on above:Performed By: #### [id number] #### [facility] ([facility]) [address] [address]XPD (Bld) [#/Vol]12.14 10*3/uLHigh4.00-10.60UnClermont County HospitalComment on above:Performed By: #### [id number] #### [facility] ([facility]) [address] [address]QRJHSIBYVZQYR METABOLIC PANELon 08-38-0944HLFADLH AMINOTRANSFERASE (SGPT) (U/L) IN SER/PLAS<9Ncu6-38FcknpvyxxbClermont County HospitalComment on above:Performed By: #### [id number] ####[facility] ([facility])[address] [place] [address]Hlsyilr [Mass/Vol]3.4 g/dLLow3.5-5.[address] [facility] Medical CenterComment on above:Performed By: #### [id number] ####[facility] ([facility])[address] [place] [address]BYY [Catalytic activity/Vol]68 U/DSvztvr27-602DcbdtjkzvdClermont County HospitalComment on above:Performed By: #### [id number] ####[facility] ([facility])[address] [place], [place] [address]Ncqau gap [Moles/Vol]15 mmol/LNormal7-20UnClermont County HospitalComment on above:Performed By: #### [id number] ####[facility] ([facility])[address] [place], [place] [address]QHV [Catalytic activity/Vol]13 U/L Ujfnls31-43DqqirxfufnClermont County HospitalComment on above:Performed By: #### [id number] ####[facility] ([facility])[address] [place] [address] Bilirubin [Mass/Vol]0.5 mg/dLNormal0.3-1.0UnClermont County Hospital Comment on above:Performed By: #### [id number] ####[facility] ([facility])[address] [place] [place], [place] [address]Ompgvnl [Mass/Vol]8.6 mg/dLNormal8.6-10.3UnClermont County HospitalComment on above:Performed By: #### [id number] ####[facility] ([facility])[address] [place], [place] [address]Lxexubfy [Moles/Vol]104 mmol/PUljbpt24-581LmzmzrixxeClermont County HospitalComment on above:Performed By: #### [id number] ####[facility] ([facility])[address] [place] [address] CO2 [Moles/Vol]25 mmol/WGzgbbl01-08YgkyhzdqkuClermont County HospitalComment on above:Performed By: #### [id number] ####[facility] ([facility])[address] [place] [place], [place] [address]Cddijckkzj [Mass/Vol]1.73 mg/dLHigh0.70-1.30UnClermont County HospitalComment on above:Performed By: #### [id number] ####[facility] ([facility])[address] [place], [place] [address]CYRPAVZMWF FILTRATION RATE ML/MIN/1.73 SQ M.SSAKOCFQL02.0 mL/min/1.73m*2Low>60.0UnClermont County HospitalComment on above:Result Comment: [facility]???s estimated glomerular filtration rate (eGFR) [...] anyone group of individuals.Performed By: #### [id number] ####[facility] ([facility])[address] [place], [place] [address]Bcuvfmi [Mass/Vol]239 mg/fRAovx87-480VmhovlauncClermont County HospitalComment on above:Performed By: #### [id number] ####[facility] ([facility])[address], [place] [address]Sleocznxo [Moles/Vol]3.9 mmol/LNormal3.5-5.1UnClermont County HospitalComment on above:Performed By: #### [id number] ####[facility] ([facility])[address], [place] [address]Oibkycs [Mass/Vol]6.3 g/dLNormal 6.0-8.3UnClermont County HospitalComment on above:Performed By: #### [id number] ####[facility] ([facility])[address], [place] [address]Huulkv [Moles/Vol]140 mmol/UKahytg749-943VgsicfxpzmClermont County HospitalComment on above:Performed By: #### [id number] ####[facility] ([facility])[address], [place] [address]Tpth nitrogen [Mass/Vol]38 mg/dLHigh7-25UnClermont County HospitalComment on above:Performed By: #### [id number] ####[facility] ([facility])[address] [place] [address]THKJ NITROGEN/CREATININE (MASS RATIO) IN SER/PLAS22.0NormalUniversity Select Medical Specialty Hospital - AkronComment on above: Performed By: #### [id number] ####[facility] ([facility])[address] [address]DUqj [id number] Attestation signed by Nikolas Gonzalez MD at [...] was admitted as a direct transfer from [place] on 05/10/2025 for acute on chronic heart failure. 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 He presented to the ED on the advice of his physician following an increase in lower extremity edema with associated labs showing a BNP 6200. In the [place] ED he was found to have pulmonary vascular congestion with right sided pleural effusion on chest x-ray, and found to be hypertensive at 190/68, and EKG showed A-fib, he was initially managed medically with lasix and antihypertensives prior to transfer. Patient follows up with Dr. Bland who had scheduled right heart cath on 05/10/2025. At [facility] echo was performed which was unable [...] Sullivan CNP MILKA Beckett 06/15/2025 10:30 AM [facility] CV ECHO ROOM 2 HV HEART AL HeartVAS 06/18/2025 11:30 AM Claribel Cisneros MD [...] known as: Lasix glimepi (more content not included)...NormalUnClermont County Hospital MANUAL DIFFERENTIALon 97-25-2514GCWWJVUVC (10*3/UL) IN BLOOD BY CALCULATION0.05 10*3/uLNormal0.00-0.20UnClermont County HospitalComment on above: Performed By: #### [id number] #### [facility] ([facility]) [address] [place], [place] [address]WQYYNSVNR/100 LEUKOCYTES IN BLOOD BY AUTOMATED COUNT0.4 %Normal 0.0-1.0UnClermont County HospitalComment on above:Performed By: #### [id number] #### [facility] ([facility]) [address] [place] [address]DCFGJONZYFJ (10*3/UL) IN BLOOD BY CALCULATION0.05 10*3/uLNormal 0.00-0.50UnClermont County HospitalComment on above:Performed By: #### [id number] #### [facility] ([facility]) [address] [place] [address]RGNKDZJIIYI/100 LEUKOCYTES IN BLOOD BY AUTOMATED COUNT0.4 % Normal0.0-6.0UnClermont County HospitalComment on above:Performed By: #### [id number] #### [facility] ([facility]) [address] [facility] [place] [address]QYQVMTTR GRANULOCYTES (10*3/UL) IN BLOOD BY CALCULATION0.07 10*3/uLNormal0.00-0.20UnClermont County HospitalComment on above: Performed By: #### [id number] #### [facility] ([facility]) [address] [place] [address]SXCNWAIB GRANULOCYTES/100 LEUKOCYTES IN BLOOD BY AUTOMATED COUNT 0.6 %Normal0.0-1.0UnClermont County HospitalComment on above:Performed By: #### [id number] #### [facility] ([facility]) [address] [place] [address]KFOGSFDPGEZ (10*3/UL) IN BLOOD BY CALCULATION0.87 10*3/uLLow 1.20-4.00UnClermont County HospitalComment on above:Performed By: #### [id number] #### [facility] ([facility]) [address] [facility] [place] [address]LJSYPLGXLXJ/100 LEUKOCYTES IN BLOOD BY AUTOMATED COUNT7.2 %Low 20.0-45.0UnClermont County HospitalComment on above:Performed By: #### [id number] #### [facility] ([facility]) [address] [facility] [place] [address]KBRJFKFIQ (10*3/UL) IN BLOOD BY CALCUATION1.92 10*3/uLHigh 0.10-1.00UnClermont County HospitalComment on above:Performed By: #### [id number] #### [facility] ([facility]) [address] [facility] [place], [place] [address]GVWAZUGUO/100 LEUKOCYTES IN BLOOD BY AUTOMATED COUNT15.8 %High 5.0-12.0UnClermont County HospitalComment on above:Performed By: #### [id number] #### [facility] ([facility]) [address] [facility] [place], [place] [address]XJMOMRIBRTN (10*3/UL) IN BLOOD BY CALCULATION9.2 10*3/uLHigh 1.6-7.6UnClermont County HospitalComment on above:Performed By: #### [id number] #### [facility] ([facility]) [address] [facility] [facility] [facility] [place], [place] [address]YTLTFVQGMOH/100 LEUKOCYTES IN BLOOD BY AUTOMATED COUNT75.6 %High 40.0-72.0UnClermont County HospitalComment on above:Performed By: #### [id number] #### [facility] ([facility]) [address] [place], [place] [address]RRXHMEVPnc 63-60-8515NMJCWFHVYhrvzk called to BRANDEN Norton at [facility].SaludaUnClermont County HospitalNURSNOTEPatient Name: Nadir Beth : 1940 Primary Care [...] Liz Joshi RN Rapid Response Team Nurse [phone] 05/17/2025 10:35 [facility] RehabilitationNURSNOTEPatient Name: Nadir Beth : 1940 Primary Care [...] time, but encouraged to reach out to [employer] if anything changes. Marc Araiza RN Rapid Response Team Nurse [phone] 05/17/2025 2:32 AMNormalUnClermont County HospitalPOCT GLUCOSE METER UNSOLICITED RESULTSon 80-23-1940Hghkbgz [Mass/Vol]331 mg/xCLzxz75-426BrjghytrjcClermont County HospitalComment on above:Order Comment: Waived Testing in the ED is performed under the ED CLIA certificate #[id number].Result Comment: [email or web address] Performed By: #### [id number] ####[facility] (BEAKER)[address] [place], [place] [address]Curqilo [Mass/Vol]310 mg/hYRszp37-758HasgcbttdtClermont County HospitalComment on above:Order Comment: Waived Testing in the ED is performed under the ED CLIA certificate #[id number].Result Comment: [email or web address] Performed By: #### [id number] ####[facility] (BEAKER)[address] [place], [place] [address]Rgrustc [Mass/Vol]235 mg/vEYspp50-569AzaztxypmqClermont County HospitalComment on above:Order Comment: Waived Testing in the ED is performed under the ED CLIA certificate #[id number].Result Comment: [email or web address] Performed By: #### [id number] ####[facility] (BIJAN)[address] [place], [place] [address]vg [id number] patient is Moderately Stable - Low risk [...] and behaviors that affect risk of falls [place] fall precautions as indicated by assessment Educate [...] Outcome: Progressing Flowsheets (Take (more content not included)...[facility]30Daily Case Management Update Barriers to Discharge: Pending clinical course and clearance. POD #1 TAVR. Needs PT & OT to reevaluate to make sure patient can still return home. Slight ARTUR. ECHO today. Blood cultures pending. Diet: Dietary Orders (From admission, onward) Start Ordered 05/16/25 1553 Special Kitchen Request Once Comments: [place] burger with cheese On the side: tomato, [...] Request Once Comments: Omelet with green pepper, congolese cheese and onion, 1 slice wheat toast, [...] Reason for OT? Answer: gait abnormality 05/10/25 0411NormalUniversHolzer Medical Center – [facility] 72-08-0589TLQDNMRHP PARTIAL THROMBOPLASTIN TIME IN PPP BY COAGULATION ASSAY77.8 SecondsHigh 25.0-35.0UnClermont County HospitalComment on above:Result Comment: Clinical significance of the APTT is questionable in the presence of heparin. Performed By: #### [id number] #### [facility] ([facility]) [address] [place], [place] [address]AOXQBCTYA PARTIAL THROMBOPLASTIN TIME IN PPP BY COAGULATION ASSAY63.8 LsykeabBmqb43.0-35.0UnClermont County HospitalComment on above:Result Comment: Clinical significance of the APTT is questionable in the presence of heparin.Performed By: #### [id number] #### [facility] ([facility]) [address] [place], [place] [address]MRKUN METABOLIC PANELon 22-10-7742Fypvb gap [Moles/Vol]19 mmol/L Normal7-20UnClermont County HospitalComment on above:Performed By: #### [id number] #### [facility] ([facility]) [address] [place], [place] [address]Alsbxin [Mass/Vol]8.6 mg/dLNormal8.6-10.3UnClermont County HospitalComment on above:Performed By: #### [id number] #### [facility] ([facility]) [address] [place], [place] [address]Rsvdipvz [Moles/Vol]103 mmol/FBmdxkg33-386FrwdcjwstqClermont County HospitalComment on above:Performed By: #### [id number] #### [facility] ([facility]) [address] [place], [place] [address]NJ9 [Moles/Vol]22 mmol/RXozssv10-17CoydkeztxyClermont County HospitalComment on above:Performed By: #### [id number] #### [facility] ([facility]) [address] [place], [place] [address]Oeozpoqtra [Mass/Vol]1.71 mg/dLHigh0.70-1.30UnClermont County HospitalComment on above:Performed By: #### [id number] #### [facility] ([facility]) [address] [place] [address]GMZRKZCYSG FILTRATION RATE ML/MIN/1.73 SQ M.VAWRCHBAV97.5 mL/min/1.73m*2Low>60.0UnClermont County HospitalComment on above:Result Comment: [facility]???s estimated glomerular filtration rate (eGFR) [...] group of individuals.Performed By: #### [id number] #### [facility] ([facility]) [address] [place] [address]Elpcyil [Mass/Vol]222 mg/gXZcpu85-801SfmpdwcfpsClermont County HospitalComment on above:Performed By: #### [id number] #### [facility] ([facility]) [address] [place] [address]Oscelzien [Moles/Vol]4.2 mmol/LNormal3.5-5.1UnClermont County HospitalComment on above:Performed By: #### [id number] #### [facility] ([facility]) [address] [place] [address]Apslfv [Moles/Vol]140 mmol/ELjpmej534-403LzkoddmhmoClermont County HospitalComment on above:Performed By: #### [id number] #### [facility] ([facility]) [address] [place] [address]Tojh nitrogen [Mass/Vol]41 mg/dLHigh7-25UnClermont County HospitalComment on above:Performed By: #### [id number] #### [facility] ([facility]) [address] [place] [address]ZNOI NITROGEN/CREATININE (MASS RATIO) IN SER/PLAS24.0Normal [facility] CenterComment on above:Performed By: #### [id number] #### [facility] ([facility]) [address] [place] [address]EMMYY CULTUREon 31-84-1454Rffxvkpd identified Cx Nom (Bld)No growth at 5 daysNormalUniFairfield Medical CenterComment on above:Order Comment: From a different site than #1.Performed By: #### [id number] ####[facility] ([facility])[address] [place] [address]Eixokfvkg By: #### [id number] #### [facility] ([facility]) [address] [place] [address]ZGFrd 72-16-2185Irlumrbyldf distribution width (RBC) [Ratio]19.5 %High11.5-15.0UnClermont County HospitalComment on above:Performed By: #### [id number] #### [facility] ([facility]) [address] [place] [address]UDFMIJUDSOB MEAN CORPUSCULAR HEMOGLOBIN CONCENTRATION (G/DL) BY AATNPKNQH38.2 g/dLLow32.0-35.0UnClermont County HospitalComment on above:Performed By: #### [id number] #### [facility] ([facility]) [address] [place], [place] [address]Qbphddgddx (Bld) [Volume fraction]33.1 %Low39.0-50.0UnClermont County HospitalComment on above:Performed By: #### [id number] #### [facility] ([facility]) [address] [place], [place] [address]Icdtzyosdp (Bld) [Mass/Vol]10.0 g/dLLow13.0-17.0UnClermont County HospitalComment on above:Performed By: #### [id number] #### [facility] ([facility]) [address] [place] [address]TPB (RBC) [Entitic mass]25.4 pgLow27.0-33.0UnClermont County HospitalComment on above:Performed By: #### [id number] #### [facility] ([facility]) [address] [place] [address]GQQ (RBC) [Entitic vol]84.0 gKRkeegb65.0-98.0UnClermont County HospitalComment on above:Performed By: #### [id number] #### [facility] ([facility]) [address] [place], [place] [address]UKOPFBZUP (10*3/UL) IN BLOOD AUTOMATED [id number] 10*3/uLNormal 150-400UnClermont County HospitalComment on above:Performed By: #### [id number] #### [facility] ([facility]) [address] [place] [address]KWT (Bld) [#/Vol]3.94 10*6/uLLow4.20-5.70UnClermont County HospitalComment on above:Performed By: #### [id number] #### [facility] ([facility]) [address] [place], [place] [address]PRS (Bld) [#/Vol]14.93 10*3/uLHigh4.00-10.60UnClermont County HospitalComment on above:Performed By: #### [id number] #### [facility] ([facility]) [address] [place], [place] [address]Dekerl Onlyon 23-98-2864Jjtmot [id number] Nadir lin 1940 M Date Provider Department Center 05/16/2025 [facility]SH[facility] No family history on fileNormalUniversity Select Medical Specialty Hospital - AkronPOCT GLUCOSE METER UNSOLICITED RESULTSon 55-42-5841Dpiokmu [Mass/Vol]374 mg/pAEole88-[address] [facility] Medical CenterComment on above:Order Comment: Waived Testing in the ED is performed under the ED CLIA certificate #[id number].Result Comment: [email or web address] By: #### [id number] #### [facility] ([facility] [address] [place], [place] [address]Cwybslw [Mass/Vol]292 mg/pPPyla64-981UxdzclylrsClermont County HospitalComment on above:Order Comment: Waived Testing in the ED is performed under the ED CLIA certificate #[id number].Result Comment: [email or web address] Performed By: #### [id number] #### [facility] (BEAKER) [address] [place], [place] [address]Zezdptb [Mass/Vol]254 mg/aXVwlu57-743YxhtzkdbzeClermont County HospitalComment on above:Order Comment: Waived Testing in the ED is performed under the ED CLIA certificate #[id number].Result Comment: [email or web address] Performed By: #### [id number] #### [facility] ([facility]) [address] [facility] [place], [place] [address]Qszrqqv [Mass/Vol]272 mg/dDAlzn63-112FcqjzyiukwClermont County HospitalComment on above:Order Comment: Waived Testing in the ED is performed under the ED CLIA certificate #[id number].Result Comment: [email or web address] Performed By: #### [id number] #### [facility] ([facility]) [address] [place], [place] [address]oe [id number] Case Management Update Multidisciplinary rounds have been completed. Barriers to Discharge: Patient to go for TAVR Today. Discharge dispo: pending clinical course, Prior to Operation PT/OT rec Patient is able to return to prior living environment (Presents from SNF). Patient is from [facility], with tentative plan to return when medically ready. Diet: Dietary Orders (From admission, onward) Start Ordered 05/15/25 0001 Diet NPO Diet effective midnight Comments: Sips with medications Question: Reason for NPO: Answer: Operation/Procedure 05/14/25 1521 05/14/25 0631 Special Kitchen Request Once Comments: Omelet with green pepper, congolese cheese and onion, 1 slice wheat toast, [...] Reason for OT? Answer: gait abnormality 05/10/25410NormalUniversity [facility] Medical Special[facility] [place]30The patient is Moderately Stable - Low risk [...] the next 3 months Outcome: ProgressingNormalUniversity of [facility] 05-15-2025 ACTIVATED PARTIAL THROMBOPLASTIN TIME IN PPP BY COAGULATION ASSAY73.2 Seconds High25.0-35.0UnClermont County HospitalComment on above:Result Comment: Clinical significance of the APTT is questionable in the presence of heparin. Performed By: #### [id number] #### [facility] ([facility]) [address] [place], [place] [address]FSTWMGNXB PARTIAL THROMBOPLASTIN TIME IN PPP BY COAGULATION ASSAY51.8 JbzxqmbVqkh94.0-35.0UnClermont County HospitalComment on above:Result Comment: Clinical significance of the APTT is questionable in the presence of heparin.Performed By: #### [id number] #### [facility] ([facility]) [address] [place], [place] [address]LIXON METABOLIC PANELon 15-60-1483Mwaby gap [Moles/Vol]16 mmol/L Normal7-20UnClermont County HospitalComment on above:Performed By: #### [id number] #### [facility] ([facility]) [address] [place], [place] [address]Zqqfesr [Mass/Vol]8.9 mg/dLNormal8.6-10.3UnClermont County HospitalComment on above:Performed By: #### [id number] #### [facility] ([facility]) [address] [facility] [place] [address]Llxcyrht [Moles/Vol]99 mmol/KOvejtg34-340WjysbkhgqlClermont County HospitalComment on above:Performed By: #### [id number] #### [facility] ([facility]) [address] [place] [address]RI8 [Moles/Vol]27 mmol/YQpzlyw47-11RjwhetihjrClermont County HospitalComment on above:Performed By: #### [id number] #### [facility] ([facility]) [address] [place] [address]Dgitbivmnw [Mass/Vol]1.61 mg/dLHigh0.70-1.30UnClermont County HospitalComment on above:Performed By: #### [id number] #### [facility] ([facility]) [address] [place] [address]BGYKMQTYUH FILTRATION RATE ML/MIN/1.73 SQ M.GFNDMXFBX72.4 mL/min/1.73m*2Low>60.0UnClermont County HospitalComment on above:Result Comment: [facility]???s estimated glomerular filtration rate (eGFR) [...] group of individuals.Performed By: #### [id number] #### [facility] ([facility]) [address] [place] [address]Bufkdgu [Mass/Vol]255 mg/gOXmdy13-099GkpshewadaClermont County HospitalComment on above:Performed By: #### [id number] #### [facility] ([facility]) [address] [place] [address]Zpzuvcifr [Moles/Vol]4.5 mmol/LNormal3.5-5.1UnClermont County HospitalComment on above:Performed By: #### [id number] #### [facility] ([facility]) [address] [place] [address]Wrkfzd [Moles/Vol]137 mmol/VMlxdxg330-599AlnkkljztpClermont County HospitalComment on above:Performed By: #### [id number] #### [facility] ([facility]) [address] [place] [address]Nqrw nitrogen [Mass/Vol]34 mg/dLHigh7-25UnClermont County HospitalComment on above:Performed By: #### [id number] #### [facility] ([facility]) [address] [place] [address]ASIH NITROGEN/CREATININE (MASS RATIO) IN SER/PLAS21.1Normal [facility] John Medical CenterComment on above:Performed By: #### [id number] #### [facility] ([facility]) [address] [place] [address]WQLqg 00-09-4018Kbaawccyqjc distribution width (RBC) [Ratio]19.0 %High11.5-15.0UnClermont County HospitalComment on above:Performed By: #### [id number] #### [facility] ([facility]) [address] [place] [address]YGSVJUYIRSU MEAN CORPUSCULAR HEMOGLOBIN CONCENTRATION (G/DL) BY QSEXMYVIC54.7 g/dLLow32.0-35.0UnClermont County HospitalComment on above:Performed By: #### [id number] #### [facility] ([facility]) [address] [place], [place] [address]Wcahftwtmp (Bld) [Volume fraction]33.6 %Low39.0-50.0UnClermont County HospitalComment on above:Performed By: #### [id number] #### [facility] ([facility]) [address] [place], [place] [address]Rggwcdwxod (Bld) [Mass/Vol]10.3 g/dLLow13.0-17.0UnClermont County HospitalComment on above:Performed By: #### [id number] #### [facility] ([facility]) [address] [place] [address]CQU (RBC) [Entitic mass]25.2 pgLow27.0-33.0UnClermont County HospitalComment on above:Performed By: #### [id number] #### [facility] ([facility]) [address] [place] [address]PJZ (RBC) [Entitic vol]82.4 xYArvokm40.0-98.0UnClermont County HospitalComment on above:Performed By: #### [id number] #### [facility] ([facility]) [address] [place] [address]WXJOGELNR (10*3/UL) IN BLOOD AUTOMATED [id number] 10*3/uLNormal 150-400UnClermont County HospitalComment on above:Performed By: #### [id number] #### [facility] ([facility]) [address] [place] [address]YFW (Bld) [#/Vol]4.08 10*6/uLLow4.20-5.70UnClermont County HospitalComment on above:Performed By: #### [id number] #### [facility] ([facility]) [address] [place] [address]RKM (Bld) [#/Vol]12.04 10*3/uLHigh4.00-10.60UnClermont County HospitalComment on above:Performed By: #### [id number] #### [facility] ([facility]) [address] [place] [address]BMrz 18-67-6834MP Attestation signed by García Muir MD at [...] Beth Age - 85 y.o. - 1940 [facility] # - [id number] Date of Admission - 05/10/2025 2:37 AM History of Present Illness Nadir Beth is an 85 y.o. male with a PMH of HFpEF, paroxysmal A-fib on Xarelto, CVA, T2DM, hypertension, renal artery stenosis left renal stent, and hyperlipidemia who was admitted as a direct transfer from [place] on 05/10/2025 for acute on chronic heart failure. 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 He presented to the ED on the advice of his physician following an increase in lower extremity edema with associated labs showing a BNP 6200. In the [place] ED he was found to have pulmonary vascular congestion with right sided pleural effusion on chest x-ray, and found to be hypertensive at 190/68, initially managed medically with lasix and antihypertensives prior to transfer. At [facility] echo was performed which was unable [...] 101 CO2 mmol/L 2 (more content not included)...[facility] HospitalH[facility] reviewed. 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 male with severe [...] the right common femoral artery using two 6-Indian ProGlide devices. Angio-Seal vascular closure in the left common femoral artery. Placement of SENTINEL cerebral embolic protection device. OPERATORS: Interventional Cardiology Top Spotter: Claribel Cisneros MD Cardiac Surgery Top Spotter: Negro Lopez MD Manager Regulatory Interventional Cardiology Top Spotter: Aissatou Hughes METHODS: Procedure was explained to the patient with risks and benefits. he signed informed consent. he was brought to pipelines laborer in a fasting state. The procedure was performed in the cardiac pipelines laborer under conscious sedation. The right wrist area was prepped and draped in usual fashion. Access was obtained using ultrasound guidance and micropuncture technique in the right radial artery and a 6-Indian x 11 cm Hydrophilic sheath was placed. Verapamil was given through the sheath. Both groin areas, and the right neck area were prepped and draped in usual fashion. Ultrasound guidance was used for micropuncture access in the right internal jugular vein and a 6-Indian x 11 cm introducer sheath was secured in place. Micropuncture technique and ultrasound guidance were used for access in the right common femoral artery and inner cannula angiography was performed followed by upsizing to a 6-Indian x 11 cm sheath. The same was done for the access in the left common femoral artery. At this time, we proceeded with the preclosure in the right common femoral artery using 2 crossing Perclose devices and the access was then upsized over a wire to a 10-Indian sheath. A 5-Indian balloon-tipped pacemaker wire was advanced through the internal jugular vein sheath to the right ventricular apex and adequate capture was confirmed. Heparin was given intravenously and therapeutic ACT confirmed during the rest of the procedure and additional heparin given as needed. Through the left common femoral sheath, an angled 6-Indian pigtail catheter was then advanced to the ascending aorta and placed in the noncoronary cusp. Aortic root angiography was performed in the coplanar view as determined by prior CT scan measurements. A 6-Indian IM diagnostic catheter was then advanced through the right radial sheath and then navigated using an 0.035 inch wire to the ascending aorta and this was used to place an exchange length [employer] 0.014 inch wire. The wire was advanced to the left carotid artery. A [place] device was then prepped using standard techniques and then advanced. The proximal filter was deployed in the innominate artery followed by deployment of the distal filter. The [place] device was then secured in place. The right common femoral access was then upsized using an exchange length Lunderquist wire [which was placed through a multipurpose catheter] to the 14-Indian Le E-sheath. The sheath was secured in place. A 6-Indian AL1 diagnostic catheter was advanced via the E-sheath, and using a straight stiff Glidewire, the aortic valve was crossed and the catheter was advanced in the left ventricular cavity, and using an exchange length J-wire, a 6-Indian angled pigtail catheter was advanced to make [...] retracted. The delivery c (more content not included)...NormalUnClermont County HospitalPOCT GLUCOSE METER UNSOLICITED RESULTSon 68-66-8524Mpvbmpf [Mass/Vol]193 mg/sDJmsd91-110KokxjcicrfClermont County HospitalComment on above:Order Comment: Waived Testing in the ED is performed under the ED CLIA certificate #[id number].Result Comment: oebdgoa9Lzadftecv By: #### [id number] #### [facility] ([facility]) [address] [place], [place] [address]Dfofzrk [Mass/Vol]334 mg/qZLdgl62-728TyjdndgyseClermont County HospitalComment on above:Order Comment: Patient had pre procedure medications already for cathResult Comment: pnyavmu7Npspmitfz By: #### [id number] ####[facility] ([facility])[address] [facility] [place] [address]Dckzvpt [Mass/Vol]288 mg/jZTfow92-895DxsnehdicwClermont County HospitalComment on above:Order Comment: Waived Testing in the ED is performed under the ED CLIA certificate #[id number].Result Comment: nmsglua5Jrzqqtnra By: #### [id number] #### [facility] ([facility] [address] [place], [place] [address]Sxuyevt [Mass/Vol]351 mg/vTIowh82-667DmcscsaicqUniversity Hospitals St. John Medical CenterComment on above:Order Comment: Waived Testing in the ED is performed under the ED CLIA certificate #[id number].Result Comment: clarcom Performed By: #### [id number] #### [facility] ([facility]) [address] [place], [place] [address]ds [id number] Case Management Update Multidisciplinary rounds have been [...] is for patient to discharge to [facility] when medically ready. Diet: Dietary Orders (From admission, onward) Start Ordered 05/14/25 0631 Special Kitchen Request Once Comments: Omelet with green pepper, congolese cheese and onion, 1 slice wheat toast, [...] Reason for OT? Answer: gait abnormality 05/10/25 041NormalUniversCleveland Clinic [facility]30The patient is Moderately Stable - Low [...] the next 3 months Outcome: ProgressingNormalUniversity of [facility] 05-14-2025 ACTIVATED PARTIAL THROMBOPLASTIN TIME IN PPP BY COAGULATION ASSAY57.1 Seconds High25.0-35.0UnClermont County HospitalComment on above:Result Comment: Clinical significance of the APTT is questionable in the presence of heparin. Performed By: #### [id number] #### [facility] ([employer]) [address] [place], [place] [address]ITMYZWWJG PARTIAL THROMBOPLASTIN TIME IN PPP BY COAGULATION ASSAY33.6 TaqbaawFtpauw77.0-35.0UnClermont County HospitalComment on above:Order Comment: Baseline aPTT before initiating heparin infusion.Result Comment: Clinical significance of the APTT is questionable in the presence of heparin.Performed By: #### [id number] ####[facility] ([employer])[address] [place], [place] [address]IVARP METABOLIC PANELon 00-30-9789Rxnfy gap [Moles/Vol]13 mmol/LNormal7-20UnClermont County HospitalComment on above:Performed By: #### [id number] #### [facility] ([employer]) [address] [place], [place] [address]Rfraane [Mass/Vol]8.4 mg/dLLow8.6-10.3UnClermont County HospitalComment on above:Performed By: #### [id number] #### [facility] ([employer]) [address] [place], [place] [address]Ycmxodhw [Moles/Vol]100 mmol/BIlnoin11-958RgfcuznowvClermont County HospitalComment on above:Performed By: #### [id number] #### [facility] ([facility]) [address] [place] [address]NA6 [Moles/Vol]29 mmol/XMzrspx38-32MdbhysegicClermont County HospitalComment on above:Performed By: #### [id number] #### [facility] ([facility]) [address] [place] [address]Yumeiamvdw [Mass/Vol]1.74 mg/dLHigh0.70-1.30UnClermont County HospitalComment on above:Performed By: #### [id number] #### [facility] ([facility]) [address] [place] [address]NIWUHLDGVA FILTRATION RATE ML/MIN/1.73 SQ M.KLPFLBKLM33.7 mL/min/1.73m*2Low>60.0UnClermont County HospitalComment on above:Result Comment: [facility]???s estimated glomerular filtration rate (eGFR) [...] affect anyone group of individuals.Performed By: #### [id number] #### [facility] ([facility]) [address] [place] [address]Wrhkwkk [Mass/Vol]186 mg/zTSvzi57-858YwwrwcgckgClermont County HospitalComment on above:Performed By: #### [id number] #### [facility] ([facility]) [address] [place] [address]Ysryyawut [Moles/Vol]3.8 mmol/LNormal3.5-5.1UnClermont County HospitalComment on above:Performed By: #### [id number] #### [facility] ([facility]) [address] [place], [place] [address]Lmeauw [Moles/Vol]138 mmol/GGdotxo275-548XoppqnphutClermont County HospitalComment on above:Performed By: #### [id number] #### [facility] ([facility]) [address] [place], [place] [address]Fhzw nitrogen [Mass/Vol]34 mg/dLHigh7-25UnClermont County HospitalComment on above:Performed By: #### [id number] #### [facility] ([facility]) [address] [place], [place] [address]ASIR NITROGEN/CREATININE (MASS RATIO) IN SER/PLAS19.5Normal [facility] John Medical CenterComment on above:Performed By: #### [id number] #### [facility] ([facility]) [address] [place], [place] [address]MPIIHSGR COUNTon 80-13-7882QFHPQCSZF (10*3/UL) IN BLOOD AUTOMATED TVFOD679 10*3/qCRwtuju720-013VbcnusmpdeClermont County Hospital Comment on above:Performed By: #### [id number] #### [facility] ([facility]) [address] [place], [place] [address]PMRP GLUCOSE METER UNSOLICITED RESULTSon 54-52-8696Lyezljg [Mass/Vol]303 mg/cORntf76-252QmpdtkoejcClermont County HospitalComment on above:Order Comment: Waived Testing in the ED is performed under the ED CLIA certificate #[id number].Result Comment: hbecizw2Vxvdlyncv By: #### [id number] #### [facility] ([facility]) [address] [place], [place] [address]Ydpobpe [Mass/Vol]254 mg/jHZqwq06-476YgfkrvbygeClermont County HospitalComment on above:Order Comment: Waived Testing in the ED is performed under the ED CLIA certificate #[id number].Result Comment: [email or web address] Performed By: #### [id number] #### [facility] ([facility]) [address] [place], [place] [address]Htgbfae [Mass/Vol]225 mg/qOOueq63-619LomnkageosClermont County HospitalComment on above:Order Comment: Waived Testing in the ED is performed under the ED CLIA certificate #[id number].Result Comment: ooperac Performed By: #### [id number] ####[facility] (BEAKER)[address] [place] [address]Uzieias [Mass/Vol]209 mg/jITweb88-844HitbmozqbwClermont County HospitalComment on above:Order Comment: Waived Testing in the ED is performed under the ED CLIA certificate #[id number].Result Comment: ooperac Performed By: #### [id number] ####[facility] (BEAKER)[address] [place] [address]qd [id number] patient is Moderately Stable - Low risk [...] over the next 3 months Outcome: ProgressingNormalUniversity Select Medical Specialty Hospital - AkronBASIC METABOLIC PANELon 95-86-6308Bjmhm gap [Moles/Vol]14 mmol/LNormal7-20UnClermont County HospitalComment on above:Performed By: #### [id number] #### [facility] ([facility]) [address] [place], [place] [address]Mhkwmxz [Mass/Vol]8.5 mg/dLLow8.6-10.3UnClermont County HospitalComment on above:Performed By: #### [id number] #### [facility] ([facility]) [address] [place], [place] [address]Soxuaxxd [Moles/Vol]99 mmol/ZRvwcke18-628QmhjjcpwxlClermont County HospitalComment on above:Performed By: #### [id number] #### [facility] ([facility]) [address] [place], [place] [address]FQ0 [Moles/Vol]29 mmol/JRkdwtk13-47WiqzsabzehClermont County HospitalComment on above:Performed By: #### [id number] #### [facility] ([facility]) [address] [place], [place] [address]Oazklzzqts [Mass/Vol]1.65 mg/dLHigh0.70-1.30UnClermont County HospitalComment on above:Performed By: #### [id number] #### [facility] ([facility]) [address] [place], [place] [address]BGIVHPMSQK FILTRATION RATE ML/MIN/1.73 SQ M.ENJKORXIS87.2 mL/min/1.73m*2Low>60.0UnClermont County HospitalComment on above:Result Comment: [facility]???s estimated glomerular filtration rate (eGFR) [...] affect anyone group of individuals.Performed By: #### [id number] #### [facility] ([facility]) [address] [place], [place] [address]Zpxfeuc [Mass/Vol]206 mg/hFRfnb55-714BxcszgxvgbClermont County HospitalComment on above:Performed By: #### [id number] #### [facility] ([facility]) [address] [place] [address]Ubvazeclb [Moles/Vol]3.5 mmol/LNormal3.5-5.1UnClermont County HospitalComment on above:Performed By: #### [id number] #### [facility] ([facility]) [address] [place] [address]Fmzkyv [Moles/Vol]138 mmol/VUadhgw484-356BfcuombfzoClermont County HospitalComment on above:Performed By: #### [id number] #### [facility] ([facility]) [address] [place] [address]Egls nitrogen [Mass/Vol]32 mg/dLHigh7-25UnClermont County HospitalComment on above:Performed By: #### [id number] #### [facility] ([facility]) [address] [place] [address]WKWO NITROGEN/CREATININE (MASS RATIO) IN SER/PLAS19.4Normal [facility] John Medical CenterComment on above:Performed By: #### [id number] #### [facility] ([facility]) [address] [place] [address]OFCia 74-62-5181Kifvphzicyu distribution width (RBC) [Ratio]18.9 %High11.5-15.0UnClermont County HospitalComment on above:Performed By: #### [id number] #### [facility] ([facility]) [address] [place] [address]OMHFHTKKMBP MEAN CORPUSCULAR HEMOGLOBIN CONCENTRATION (G/DL) BY DSBFFKIJT85.3 g/dLLow32.0-35.0UnClermont County HospitalComment on above:Performed By: #### [id number] #### [facility] ([facility]) [address] [place] [address]Ehglfoualh (Bld) [Volume fraction]31.3 %Low39.0-50.0UnClermont County HospitalComment on above:Performed By: #### [id number] #### [facility] ([facility]) [address] [place] [address]Qmspndnxiq (Bld) [Mass/Vol]9.8 g/dLLow13.0-17.0UnClermont County HospitalComment on above:Performed By: #### [id number] #### [facility] ([facility]) [address] [place] [address]EZP (RBC) [Entitic mass]25.8 pgLow27.0-33.0UnClermont County HospitalComment on above:Performed By: #### [id number] #### [facility] ([facility]) [address] [place] [address]WWQ (RBC) [Entitic vol]82.4 fDBqwjlb20.0-98.0UnClermont County HospitalComment on above:Performed By: #### [id number] #### [facility] ([facility]) [address] [place] [address]EAIBRKQKX (10*3/UL) IN BLOOD AUTOMATED SHXZT451 10*3/uLNormal 150-400UnClermont County HospitalComment on above:Performed By: #### [id number] #### [facility] ([facility]) [address] [place] [address]PQP (Bld) [#/Vol]3.80 10*6/uLLow4.20-5.70UnClermont County HospitalComment on above:Performed By: #### [id number] #### [facility] ([facility]) [address] [place] [address]NFB (Bld) [#/Vol]10.18 10*3/uLNormal4.00-10.60UnClermont County HospitalComment on above:Performed By: #### [id number] #### [facility] ([facility]) [address] [place] [address]CMYA GLUCOSE METER UNSOLICITED RESULTSon 41-50-7481Irezrpt [Mass/Vol]219 mg/aIRvtf87-974XtdvxrsspoUniversity Hospitals St. John Medical CenterComment on above:Order Comment: Waived Testing in the ED is performed under the ED CLIA certificate #[id number].Result Comment: kktoxli2Aiewujjzm By: #### [id number] #### [facility] ([facility]) [address] [place], [place] [address]Aixohoj [Mass/Vol]277 mg/qSTuzg30-590IjvcueplvdClermont County HospitalComment on above:Order Comment: Patient had pre procedure medications already for cathResult Comment: zhvlarg2Phbdckdmt By: #### [id number] ####[facility] ([facility])[address] [facility] [place] [place] [address]Crhazlk [Mass/Vol]274 mg/sUFzzv63-691ZqdaseqowpClermont County HospitalComment on above:Order Comment: Waived Testing in the ED is performed under the ED CLIA certificate #[id number].Result Comment: ydrkbxj5Lewgfindz By: #### [id number] #### [facility] ([facility]) [address] [place], [place] [address]Nbtmmea [Mass/Vol]222 mg/kDTmol00-267EzsczlhxuwClermont County HospitalComment on above:Order Comment: Waived Testing in the ED is performed under the ED CLIA certificate #[id number].Result Comment: [email or web address] Performed By: #### [id number] #### [facility] ([facility]) [address] [place], [place] [address]ju 84-76-822270Dey patient is Moderately Stable - Low risk of patient condition declining or worsening The patient's goals for the shift include Comfort, rest The clinical goals for the shift include Stable vitals, comfortNormalUniversity of [facility]30The patient is Moderately Stable - Low [...] next 3 months Outcome: ProgressingNormalUniversity of [facility]30The patient is Moderately Stable - Low [...] swelling over the next 3 months Outcome: ProgressingNormalUniversCleveland Clinic Avon HospitalANTI-XA (HEPARIN LEVEL)on 93-98-3870UBEZHHD UNFRACTIONATED (U/ML) IN PPP BY CHROMOGENIC METHOD 0.32 IU/mLNormal0.3-0.7UnClermont County HospitalComment on above: Result Comment: Rivaroxaban and Apixaban will interfere with the anti Xa assay used to monitor UFH and LMWH.Performed By: #### [id number] #### [facility] (BEAKER) [address] [place], [place] [address]DTYLAEI UNFRACTIONATED (U/ML) IN PPP BY CHROMOGENIC METHOD0.42 IU/mLNormal0.3-0.7UnClermont County HospitalComment on above:Result Comment: Rivaroxaban and Apixaban will interfere with the anti Xa assay used to monitor UFH and LMWH.Performed By: #### [id number] ####[facility] (BEAKER)[address] [place], [place] [address]DXWYU METABOLIC PANELon 05-12-2025 Anion gap [Moles/Vol]14 mmol/LNormal7-20UnClermont County Hospital Comment on above:Performed By: #### [id number] ####[facility] (BE[facility]ER)[address] [place], [place] [address]Gyhhtns [Mass/Vol]8.5 mg/dLLow8.6-10.3UnClermont County HospitalComment on above:Performed By: #### [id number] ####[facility] (BEAKER)[address] [place], [place] [address]Olmpjehp [Moles/Vol]99 mmol/SIryycs06-449FpdsewgjfqClermont County HospitalComment on above:Performed By: #### [id number] ####[facility] ([facility])[address] [place] [address] CO2 [Moles/Vol]29 mmol/UAcywrv04-95AwofrxshegClermont County HospitalComment on above:Performed By: #### [id number] ####[facility] ([facility])[address] [place] [address]Cwtclovkpw [Mass/Vol]1.63 mg/dLHigh0.70-1.30UnClermont County HospitalComment on above:Performed By: #### [id number] ####[facility] ([facility])[address] [place] [address]MHBUGKGPSX FILTRATION RATE ML/MIN/1.73 SQ M.ZENRGHJUY49.8 mL/min/1.73m*2Low>60.0UnClermont County HospitalComment on above:Result Comment: [facility]???s estimated glomerular filtration rate (eGFR) [...] anyone group of individuals.Performed By: #### [id number] ####[facility] ([facility])[address] [place] [address]Pvpzule [Mass/Vol]191 mg/oSPlhj40-759AtsitrrxkeClermont County HospitalComment on above:Performed By: #### [id number] ####[facility] ([facility])[address] [place] [address]Jwinepkjt [Moles/Vol]3.5 mmol/LNormal3.5-5.1UnClermont County HospitalComment on above:Performed By: #### [id number] ####[facility] ([facility])[address] [place], [place] [address]Upaovx [Moles/Vol]138 mmol/L Thwowg364-139PjzzamkivjClermont County HospitalComment on above:Performed By: #### [id number] ####[facility] ([facility])[address] [place] [address]Hdaz nitrogen [Mass/Vol]36 mg/dLHigh7-25UnClermont County HospitalComment on above:Performed By: #### [id number] ####[facility] ([facility])[address] [place] [address]MHGJ NITROGEN/CREATININE (MASS RATIO) IN SER/PLAS22.1Normal [facility] Medical CenterComment on above:Performed By: #### [id number] ####[facility] ([facility])[address] [place] [address]IJYC GLUCOSE METER UNSOLICITED RESULTSon 47-61-4598Rotqgas [Mass/Vol]275 mg/bURnkm91-[address] [facility] Medical CenterComment on above:Order Comment: Waived Testing in the ED is performed under the ED CLIA certificate #[id number].Result Comment: aclgujl54Ajhhdrffj By: #### [id number] ####[facility] ([facility])[address] [address]Xzdochm [Mass/Vol]285 mg/uAOdca79-878TpxautkbamClermont County HospitalComment on above:Order Comment: Waived Testing in the ED is performed under the ED CLIA certificate #[id number].Result Comment: nkoch4 Performed By: #### [id number] #### [facility] ([facility]) [address] [place] [address]Cjpjixj [Mass/Vol]332 mg/uTLygs30-135DrbfqrfkohClermont County HospitalComment on above:Order Comment: Waived Testing in the ED is performed under the ED CLIA certificate #[id number].Result Comment: nkoch4 Performed By: #### [id number] #### [facility] ([facility]) [address] [place], [place] [address]Tetcscv [Mass/Vol]214 mg/mIKuui20-414ZimazsczdxClermont County HospitalComment on above:Order Comment: Waived Testing in the ED is performed under the ED CLIA certificate #[id number].Result Comment: nkoch4 Performed By: #### [id number] #### [facility] ([facility]) [address] [place] [address]pv 49-15-455094Dta patient is Moderately Stable - Low risk of patient condition declining or worsening The patient's goals for the shift include comfort rest The clinical goals for the shift include VSS Over the shift, the patient did not make progress toward the following goals. Barriers to progression include. Recommendations to address these barriers include.NormalUnClermont County HospitalANTI-XA (HEPARIN LEVEL)on 26-45-9141EYVSBRE UNFRACTIONATED (U/ML) IN PPP BY CHROMOGENIC METHOD0.27 IU/mL Low0.3-0.7UnClermont County HospitalComment on above:Result Comment: Rivaroxaban and Apixaban will interfere with the anti Xa assay used to monitor UFH and LMWH.Performed By: #### [id number] #### [facility] ([facility]) [address] [place], [place] [address]AYDTLXW UNFRACTIONATED (U/ML) IN PPP BY CHROMOGENIC METHOD0.38 IU/mLNormal0.3-0.7UnClermont County HospitalComment on above:Result Comment: Rivaroxaban and Apixaban will interfere with the anti Xa assay used to monitor UFH and LMWH.Performed By: #### [id number] ####[facility] ([facility])[address] [place], [place] [address]NWWWZEZ UNFRACTIONATED (U/ML) IN PPP BY CHROMOGENIC METHOD0.28 IU/mLLow0.3-0.7UnClermont County Hospital Comment on above:Result Comment: Rivaroxaban and Apixaban will interfere with the anti Xa assay used to monitor UFH and LMWH.Performed By: #### [id number] ####[facility] ([facility])[address] [place], [place] [address]HUMZD METABOLIC PANELon 45-18-5655Tficl gap [Moles/Vol]15 mmol/LNormal7-20[facility] Medical CenterComment on above:Performed By: #### [id number] #### [facility] ([facility]) [address] [place] [address]Abkqfvq [Mass/Vol]8.4 mg/dLLow8.6-10.3UnClermont County HospitalComment on above:Performed By: #### [id number] #### [facility] ([facility]) [address] [place] [address]Lcevcozg [Moles/Vol]101 mmol/OAovjqw10-838JgpcivxlgzClermont County HospitalComment on above:Performed By: #### [id number] #### [facility] ([facility]) [address] [place] [address]VR3 [Moles/Vol]28 mmol/MLgejbs00-31ZvxelstgyvClermont County HospitalComment on above:Performed By: #### [id number] #### [facility] ([facility]) [address] [place] [address]Ckaopkvjsg [Mass/Vol]1.56 mg/dLHigh0.70-1.30UnClermont County HospitalComment on above:Performed By: #### [id number] #### [facility] ([facility]) [address] [place] [address]QWOGEPEMXH FILTRATION RATE ML/MIN/1.73 SQ M.RWBMPGBGH30.0 mL/min/1.73m*2Low>60.0UnClermont County HospitalComment on above:Result Comment: [facility]???s estimated glomerular filtration rate (eGFR) [...] affect anyone group of individuals.Performed By: #### [id number] #### [facility] ([facility]) [address] [place], [place] [address]Wrnzejz [Mass/Vol]237 mg/wZOzwo57-265EjnudrlpqeClermont County HospitalComment on above:Performed By: #### [id number] #### [facility] ([facility]) [address] [place], [place] [address]Waluftxyv [Moles/Vol]4.2 mmol/LNormal3.5-5.1UnClermont County HospitalComment on above:Performed By: #### [id number] #### [facility] ([facility]) [address] [place], [place] [address]Vkygvs [Moles/Vol]140 mmol/VWxvdhh885-756BiwlargolsClermont County HospitalComment on above:Performed By: #### [id number] #### [facility] ([facility]) [address] [place], [place] [address]Kvhr nitrogen [Mass/Vol]31 mg/dLHigh7-25UnClermont County HospitalComment on above:Performed By: #### [id number] #### [facility] ([facility]) [address] [place], [place] [address]GQRH NITROGEN/CREATININE (MASS RATIO) IN SER/PLAS19.9Normal [facility] Medical CenterComment on above:Performed By: #### [id number] #### [facility] ([facility]) [address] [place], [place] [address]DQKhp 14-71-7429Omygiyjgked distribution width (RBC) [Ratio]19.0 %High11.5-15.0UnClermont County HospitalComment on above:Performed By: #### [id number] #### [facility] ([facility]) [address] [place], [place] [address]XZOYHFIXLCA MEAN CORPUSCULAR HEMOGLOBIN CONCENTRATION (G/DL) BY JQOWXPDVX21.1 g/dLLow32.0-35.0UnClermont County HospitalComment on above:Performed By: #### [id number] #### [facility] ([facility]) [address] [place], [place] [address]Bxebleihrs (Bld) [Volume fraction]31.8 %Low39.0-50.0UnClermont County HospitalComment on above:Performed By: #### [id number] #### [facility] ([facility]) [address] [place] [address]Ltbecjqhvf (Bld) [Mass/Vol]9.9 g/dLLow13.0-17.0UnClermont County HospitalComment on above:Performed By: #### [id number] #### [facility] ([facility]) [address] [place] [place] [address]KXL (RBC) [Entitic mass]25.8 pgLow27.0-33.0UnClermont County HospitalComment on above:Performed By: #### [id number] #### [facility] ([facility]) [address] [place] [address]VKM (RBC) [Entitic vol]82.8 oZJxymex12.0-98.0UnClermont County HospitalComment on above:Performed By: #### [id number] #### [facility] ([facility]) [address] [place] [address]BLJSRZGQX (10*3/UL) IN BLOOD AUTOMATED [id number] 10*3/uLNormal 150-400UnClermont County HospitalComment on above:Performed By: #### [id number] #### [facility] ([facility]) [address] [place] [address]SLC (Bld) [#/Vol]3.84 10*6/uLLow4.20-5.70UnClermont County HospitalComment on above:Performed By: #### [id number] #### [facility] ([facility]) [address] [place] [address]IEG (Bld) [#/Vol]11.58 10*3/uLHigh4.00-10.60UnClermont County HospitalComment on above:Performed By: #### [id number] #### [facility] ([facility]) [address] [place], [place] [address]CXKNUEIlr 69-17-0729WNXRNJKZpjtii For Consult aortic stenosis Referring Provider: Mesha Hughes MD History Of Present Illness Nadir Beth is a 85 y.o. male presenting with acute on chronic heart failure. He was found to have a BMP greater than [address] Youssef's office in [place] yesterday. He also had signs of congestive [...] leg paresis. He saw Dr. Garcia at [facility] and was told that it [...] % -- 05/10/25 164 (more content not included)...[facility]lower HospitalCTA ABDOMEN PELVIS W IV CONTRASTon 00-85-6065QNO ABDOMEN PELVIS W IV CONTRASTCTA ABDOMEN PELVIS [...] occluded vessel seen. Electronically signed: Yenni Stafford MD.NormalUnClermont County HospitalComment on above:Order Comment: Low dose (half) contrastHEMOGLOBIN A1Con 09-70-7973Bliqmvg [Mass/Vol]220 mg/dLNormalUniversCleveland Clinic Avon Hospital Comment on above:Performed By: #### [id number] #### [facility] ([facility]) [address] [place], [place] [address]TwG7p (Bld) [Mass fraction]9.3 %High4.0-6.0UnClermont County HospitalComment on above:Performed By: #### [id number] #### [facility] ([facility]) [address] [place], [place] [address]CXre 67-92-5110EHGftfai For Consult aortic stenosis Referring Provider: Mesha Hughes MD History Of Present Illness Nadir Beth is a 85 y.o. male presenting with acute on chronic heart failure. He was found to have a BMP greater than [address] Youssef's office in [place] yesterday. He also had signs of congestive [...] leg paresis. He saw Dr. Garcia at [facility] and was told that it [...] % -- 05/10/25 164 (more content not included)...NormalUnClermont County HospitalHPH&P reviewed. The patient was examined and there are no changes to the H&P. Will proceed with RHC and coronary angiogram for acute on chronic HFpEF and aortic stenosis work up.NormalUnClermont County HospitalLIPID PANELon 11-25-5604ZOQR/HDL2.7 mg/dLNormalUniversCleveland Clinic Avon HospitalComment on above:Performed By: #### [id number] ####[facility] ([facility])[address] [place], [place] [address]Eufchxusnmc [Mass/Vol]187 mg/sXMswere359-062MpmeiyojivClermont County HospitalComment on above:Performed By: #### [id number] ####[facility] ([facility])[address] [place], [place] [address]Pjubmotoh [Mass/Vol]93 mg/dL Normal<150UnClermont County HospitalComment on above:Result Comment: TRIGLYCERIDE REFERENCE RANGE: 20 YEARS AND OLDER CARDIOVASCULAR RISK LESS THAN 150 mg/dL LOW RISK 150 TO 199 mg/dL BORDERLINE RISK 200 mg/dL AND GREATER HIGH RISKPerformed By: #### [id number] ####[facility] ([facility])[address] [place], [place] [address]Dfkytqdxn [Mass/Vol]99 mg/dLNormal 0-160UnClermont County HospitalComment on above:Performed By: #### [id number] ####[facility] ([facility])[address] [place], [place] [address]Jxmajrcxn [Mass/Vol]69 mg/rWKugqwc59-55HxzoyxugxuClermont County HospitalComment on above:Performed By: #### [id number] ####[facility] ([facility])[address] [place], [place] [address]USL HDL CHOL. (LDL+VLDL)118NormalUniversCleveland Clinic Avon HospitalComment on above:Performed By: #### [id number] ####[facility] ([facility])[address] [place], [place] [address]BWNAX VLDL-C19 mg/dLNormal0-[address] [facility] Medical CenterComment on above:Performed By: #### [id number] ####[facility] ([facility])[address] [place], [place] [address]QPEY GLUCOSE METER UNSOLICITED RESULTSon 85-89-8091Snjakrk [Mass/Vol]306 mg/kJJzlh58-[address] John Medical CenterComment on above:Order Comment: Waived Testing in the ED is performed under the ED CLIA certificate #[id number].Result Comment: gplbihd52Hdjfnnhrs By: #### [id number] ####[facility] ([facility])[address] [place], [place] [address]Tvdqpik [Mass/Vol]348 mg/iPCbvb91-197DfmhxldvtkClermont County HospitalComment on above:Order Comment: Waived Testing in the ED is performed under the ED CLIA certificate #[id number].Result Comment: clarcom Performed By: #### [id number] #### [facility] ([facility]) [address] [place] [address]Ssfdrxd [Mass/Vol]201 mg/zYNvec62-361OfvozjthcjUniversity Hospitals St. John Medical CenterComment on above:Order Comment: Waived Testing in the ED is performed under the ED CLIA certificate #[id number].Result Comment: clarcom Performed By: #### [id number] #### [facility] ([facility]) [address] [place] [address]Kgamano [Mass/Vol]224 mg/fFNxdo28-033TaqbxcguanClermont County HospitalComment on above:Order Comment: Patient had pre procedure medications already for cathResult Comment: clarcomPerformed By: #### [id number] ####[facility] ([facility])[address] [place] [address]26bb 05-10-2025 30The patient is Moderately Stable - [...] swelling over the next 3 months Outcome: ProgressingNormalUniversdayton va medical center of [facility]30The patient is Moderately Stable - Low risk of patient condition declining or worsening The patient's goals for the shift include comfort The clinical goals for the shift include VSSNormalUniversCleveland Clinic Avon HospitalANTI-XA (HEPARIN LEVEL)on 47-08-3922XAIJBOD UNFRACTIONATED (U/ML) IN PPP BY CHROMOGENIC METHOD0.25 IU/mLLow0.3-0.7UnClermont County Hospital Comment on above:Result Comment: Rivaroxaban and Apixaban will interfere with the anti Xa assay used to monitor UFH and LMWH.Performed By: #### [id number] #### [facility] ([facility]) [address] [place], [place] [address]BNVPNYC UNFRACTIONATED (U/ML) IN PPP BY CHROMOGENIC METHOD0.21 IU/mLLow0.3-0.7UnClermont County HospitalComment on above:Order Comment: Check anti-Xa level every 6 hours while on heparin infusion, or per protocol.Result Comment: Rivaroxaban and Apixaban will interfere with the anti Xa assay used to monitor UFH and LMWH.Performed By: #### [id number] ####[facility] ([facility])[address] [place], [place] [address]KLAAqn 05-10-2025 ACTIVATED PARTIAL THROMBOPLASTIN TIME IN PPP BY COAGULATION ASSAY34.1 Seconds Culhhn74.0-35.0UnClermont County HospitalComment on above:Order Comment: Baseline aPTT before initiating heparin infusion.Result Comment: Clinical significance of the APTT is questionable in the presence of heparin. Performed By: #### [id number] #### [facility] ([facility] [address] [place], [place] [address]O-MMVW NATRIURETIC PEPTIDEon 83-73-8099Tivqkbfpmjo peptide B (Bld) [Mass/Vol]736 pg/mLHigh0-100UnClermont County HospitalComment on above:Performed By: #### [id number] #### [facility] ([facility]) [address] [place], [place] [address]AUJ WITH AUTO DIFFERENTIALon 16-64-5168Kygzrxunf (Bld) [#/Vol] 0.04 10*3/uLNormal0.00-0.20UnClermont County HospitalComment on above: Performed By: #### [id number] #### [facility] ([facility]) [address] [place] [address]Rdsnxkdvb/100 WBC (Bld)0.4 %Normal0.0-1.0UnClermont County HospitalComment on above:Performed By: #### [id number] #### [facility] ([facility]) [address] [place], [place] [address]Fopguyzhqyn (Bld) [#/Vol]0.15 10*3/uLNormal0.00-0.50UnClermont County HospitalComment on above:Performed By: #### [id number] #### [facility] ([facility]) [address] [place] [address]Zozqmhlkehh/100 WBC (Bld)1.4 %Normal0.0-6.0UnClermont County HospitalComment on above:Performed By: #### [id number] #### [facility] ([facility]) [address] [place], [place] [address]Htdgxbbqzjs distribution width (RBC) [Ratio]19.2 %High11.5-15.[address] [facility] Medical CenterComment on above:Performed By: #### [id number] #### [facility] ([facility]) [address] [place], [place] [address]CNALUHIQJJF MEAN CORPUSCULAR HEMOGLOBIN CONCENTRATION (G/DL) BY XMBTRIUKN23.2 g/dLLow32.0-35.0UnClermont County HospitalComment on above:Performed By: #### [id number] #### [facility] ([facility]) [address] [place], [place] [address]Waepvfesny (Bld) [Volume fraction]33.3 %Low39.0-50.0UnClermont County HospitalComment on above:Performed By: #### [id number] #### [facility] ([facility]) [address] [place], [place] [address]Awltakqamn (Bld) [Mass/Vol]10.4 g/dLLow13.0-17.0UnClermont County HospitalComment on above:Performed By: #### [id number] #### [facility] ([facility]) [address] [place], [place] [address]Ezspione granulocytes (Bld) [#/Vol]0.06 10*3/uLNormal0.00-0.[address] [facility] Medical CenterComment on above:Performed By: #### [id number] #### [facility] ([facility]) [address] [facility] [place], [place] [address]Azzngmxs granulocytes/100 WBC (Bld)0.6 %Normal0.0-1.0UnClermont County HospitalComment on above:Performed By: #### [id number] #### [facility] ([facility]) [address] [place], [place] [address]Fhgrohnpmbv (Bld) [#/Vol]0.86 10*3/uLLow1.20-4.00UnClermont County HospitalComment on above:Performed By: #### [id number] #### [facility] ([facility]) [address] [place], [place] [address]Lnlgsymjdyf/100 WBC (Bld)8.2 %Low20.0-45.0UnClermont County HospitalComment on above:Performed By: #### [id number] #### [facility] ([facility]) [address] [place], [place] [address]YDT (RBC) [Entitic mass]25.7 pgLow27.0-33.0UnClermont County HospitalComment on above:Performed By: #### [id number] #### [facility] ([facility]) [address] [facility] [facility] [place], [place] [address]IXH (RBC) [Entitic vol]82.2 vPPljkbk48.0-98.0UnClermont County HospitalComment on above:Performed By: #### [id number] #### [facility] ([facility]) [address] [facility] [address] [place], [place] [address]Mmpiitdbw (Bld) [#/Vol]1.08 10*3/uLHigh0.10-1.00UnClermont County HospitalComment on above:Performed By: #### [id number] #### [facility] ([facility]) [address] [place] [address]Stzbskorx/100 WBC (Bld)10.3 %Normal5.0-12.0UnClermont County HospitalComment on above:Performed By: #### [id number] #### [facility] ([facility]) [address] [place], [place] [address]Behuyocqlts (Bld) [#/Vol]8.31 10*3/uLHigh1.60-7.60UnClermont County HospitalComment on above:Performed By: #### [id number] #### [facility] ([facility]) [address] [place] [address]Uxoryvzfsym/100 WBC (Bld)79.1 %High40.0-72.0UnClermont County HospitalComment on above:Performed By: #### [id number] #### [facility] ([facility]) [address] [facility] [place], [place] [address]HSBO (PER 100 WBCS) BY AUTOMATED COUNT0.0 %Jukmac4FiekzeoomgClermont County HospitalComment on above:Performed By: #### [id number] #### [facility] ([facility]) [address] [place], [place] [address]TOPYTSDPE (10*3/UL) IN BLOOD AUTOMATED [id number] 10*3/uLNormal 150-400UnClermont County HospitalComment on above:Performed By: #### [id number] #### [facility] ([facility]) [address] [place], [place] [address]VSB (Bld) [#/Vol]4.05 10*6/uLLow4.20-5.70UnClermont County HospitalComment on above:Performed By: #### [id number] #### [facility] ([facility]) [address] [place], [place] [address]KBR (Bld) [#/Vol]10.50 10*3/uLNormal4.00-10.60UnClermont County HospitalComment on above:Performed By: #### [id number] #### [facility] ([facility]) [address] [place] [address]OZVTQFRTYPQAO METABOLIC PANELon 10-36-2614Lqkdhdm [Mass/Vol]3.5 g/dLNormal3.5-5.7UnClermont County HospitalComment on above:Performed By: #### [id number] ####[facility] ([facility])[address] [place] [address] ALP [Catalytic activity/Vol]72 U/MUlubma62-406DbmnazvzvxClermont County HospitalComment on above:Performed By: #### [id number] ####[facility] ([facility])[address] [place] [address]DTF [Catalytic activity/Vol]7 U/L Normal7-52UnClermont County HospitalComment on above:Performed By: #### [id number] ####[facility] ([facility])[address] [place] [address]Tpoxp gap [Moles/Vol]16 mmol/LNormal7-20UnClermont County HospitalComment on above:Performed By: #### [id number] ####[facility] ([facility])[address] [place] [address]OIR [Catalytic activity/Vol]14 U/GKocibd95-36GwyqqbcchsClermont County HospitalComment on above:Performed By: #### [id number] ####[facility] ([facility])[address] [place] [address]Devcgqrza [Mass/Vol]0.4 mg/dL Normal0.3-1.0UnClermont County HospitalComment on above:Performed By: #### [id number] ####[facility] ([facility])[address] [place] [address] Calcium [Mass/Vol]8.5 mg/dLLow8.6-10.3UnClermont County HospitalComment on above:Performed By: #### [id number] ####[facility] ([facility])[address] [place] [address]Uoeqwori [Moles/Vol]101 mmol/LKgyynu45-596JcdancmadzClermont County HospitalComment on above:Performed By: #### [id number] ####[facility] ([facility])[address] [place] [address]EY4 [Moles/Vol]26 mmol/LNormal 21-31UnClermont County HospitalComment on above:Performed By: #### [id number] ####[facility] ([facility])[address] [place], [place] [address]Qfunuhttth [Mass/Vol]1.45 mg/dLHigh0.70-1.30UnClermont County HospitalComment on above:Performed By: #### [id number] ####[facility] ([facility])[address] [place], [place] [address]VVPFFDNEYA FILTRATION RATE ML/MIN/1.73 SQ M.KPQWOABCY58.9 mL/min/1.73m*2Low>60.0UnClermont County HospitalComment on above:Result Comment: [facility]???s estimated glomerular filtration rate (eGFR) [...] anyone group of individuals.Performed By: #### [id number] ####[facility] ([facility])[address] [place] [address]Xwpitfb [Mass/Vol]156 mg/eCBvfn21-380OdpdgbhstjClermont County HospitalComment on above:Performed By: #### [id number] ####[facility] ([facility])[address] [place], [place] [address]Zcgoimtbw [Moles/Vol]3.6 mmol/L Normal3.5-5.1UnClermont County HospitalComment on above:Performed By: #### [id number] ####[facility] ([facility])[address] [place] [address] Protein [Mass/Vol]6.2 g/dLNormal6.0-8.3UnClermont County Hospital Comment on above:Performed By: #### [id number] ####[facility] ([facility])[address] [place], [place] [address]Rjhcid [Moles/Vol]139 mmol/ZGorbnf726-245OtvbhqaetnClermont County HospitalComment on above:Performed By: #### [id number] ####[facility] ([facility])[address] [place], [place] [address]Ifpb nitrogen [Mass/Vol] 28 mg/dLHigh7-25UnClermont County HospitalComment on above:Performed By: #### [id number] ####[facility] ([facility])[address] [place] [address] UREA NITROGEN/CREATININE (MASS RATIO) IN SER/PLAS19.3NormalUniversCleveland Clinic Avon HospitalComment on above:Performed By: #### [id number] ####[facility] ([facility])[address] [place], [place] [address]WOQRTOJgs 49-64-07[address]ITHTEFGytlvuvyrx planning: to return to [facility] Patient came to this admission from [facility]. - Occupational Therapy Eval noting Patient is able to return to prior living environment - Physical Therapy Eval noting Patient is able to return to prior living environment - LDAs tab not listing any open wounds or closed skin issues - I/O wVital flowsheet noting Patient on Room Air at this [facility] - to [facility]; Erin confirmed Patient is from their facility, specifically their [facility] unit (not ECF or WAN) discharge barriers: [] no insurance precert needed for any placement from this admission [] NormalUnClermont County HospitalCONSULT Attestation signed by Azeem Green MD at 05/10/2025 7:15 PM I personally saw and evaluated the patient on rounds with the medical assistant instructor and agree with his assessment and plan as documented in the progress note from today Cardiology Consult Note Reason for Consult: Acute on chronic HFpEF, hypertensive urgency HPI: Nadir Beth is a 85 y.o. male with past medical history of A-fib on Xarelto, hypertension, HFpEF, CKD, recent history of CVA 4 months back, renal artery stenosis transferred from [facility] for acute on chronic heart failure. Patient had history of stroke 4 months back and was in rehab patient has been having progressive lower extremity edema for few days. Patient was advised to increase his Lasix from 20 to 40 mg and blood work was done which showed BNP 6214 and was advised to go to the ED. In [place] ED chest x-ray showed pulmonary vascular congestion [...] Abdomen is flat. Palp (more content not included)...NormalUniversity Hospitals St. John Medical Center CONSULTAdult Nutrition Assessment: Name: Nadir Beth Date: [...] of Nutrition and Dietetics (AND) and the [place] [employer] of Enteral and Parenteral Nutrition (ASPEN). [...] To reach the Clinical Dietitian, please utilize [employer] chat Wednesday-Wednesday from 8AM-4PM or call extension [phone]. For weekends (Wednesday-Wednesday) and hols, the Clinical Dietitian can be reached via pager ([phone]) from 9AM-3PM. The Clinical Nutrition Department is unable to respond to [employer] chat messages on Sundays and . [1] History reviewed. No pertinent past medical history. [2] Allergies Allergen Reactions Aminolevulinic Acid Hcl Unknown Iodinated Contrast Media Unknown Nitroglycerin Other hypotension Simvastatin UnknownNormalUniversity Select Medical Specialty Hospital - AkronDocumentationon [id number] Nadir Beth 1940 M Date Provider Department Center 05/10/202562547-FQWEUFSUSANA [facility] INT MED Comprehensiv Family History Problem Relation Age of Onset Coronary artery disease Father Family Status - Relation Status Age at Mother Father DeceasedNormalUniversity Select Medical Specialty Hospital - AkronHIGH SENSITIVITY TROPONIN Ion 70-86-2762YP TROPONIN I (NG/L)26 ng/LHigh<20[facility] John Medical CenterComment on above:Performed By: #### [id number] ####[facility] (BEAKER)[address] [place], [place] [address]QT TROPONIN I (NG/L)21 ng/LHigh<[address] John Medical CenterComment on above:Performed By: #### [id number] ####[facility] (BEAKER)[address] [place], [place] [address]RU TROPONIN I (NG/L)21 ng/LHigh<20UnClermont County HospitalComment on above: Performed By: #### [id number] ####[facility] (BEAKER)[address] [place], [place] [address]SDac 08-57-3197IU Attestation signed by Azeem Green MD at 05/10/2025 7:15 PM I personally saw and evaluated the patient on rounds with the medical assistant instructor and agree with his assessment and plan as documented in the progress note from today Cardiology Consult Note Reason for Consult: Acute on chronic HFpEF, hypertensive urgency HPI: Nadir Beth is a 85 y.o. male with past medical history of A-fib on Xarelto, hypertension, HFpEF, CKD, recent history of CVA 4 months back, renal artery stenosis transferred from [facility] for acute on chronic heart failure. Patient had history of stroke 4 months back and was in rehab patient has been having progressive lower extremity edema for few days. Patient was advised to increase his Lasix from 20 to 40 mg and blood work was done which showed BNP 6214 and was advised to go to the ED. In [place] ED chest x-ray showed pulmonary vascular congestion [...] Abdomen is flat. Palp (more content not included)...NormalUnClermont County Hospital MAGNESIUMon 71-72-9357Pwgkzcars [Mass/Vol]2.0 mg/dLNormal1.9-2.7UnClermont County HospitalComment on above:Performed By: #### [id number] ####[facility] (BEAKER)[address] [place], [place] [address]JZDKBFLX COUNTon 23-68-6572UDQRDICPV (10*3/UL) IN BLOOD AUTOMATED GXELY080 10*3/qKForqyl824-[address] John Medical CenterComment on above:Performed By: #### [id number] #### [facility] (BEAKER) [address] [place], [place] [address]SSSL GLUCOSE METER UNSOLICITED RESULTSon 87-04-3707Qxzqqca [Mass/Vol]237 mg/rCYqbo96-119BzxjclnpsuClermont County HospitalComment on above:Order Comment: Waived Testing in the ED is performed under the ED CLIA certificate #[id number].Result Comment: nntiaoi39Gzmnsgbcz By: #### [id number] #### [facility] ([facility]) [address] [place] [address]Atcaepr [Mass/Vol]159 mg/qFDfqv70-866YpkhuysaohClermont County HospitalComment on above:Order Comment: Waived Testing in the ED is performed under the ED CLIA certificate #[id number].Result Comment: isegura2 Performed By: #### [id number] #### [facility] ([facility]) [address] [place] [place], [place] [address]Rnhsyse [Mass/Vol]172 mg/aKLamj86-005UkjpjxklmpClermont County HospitalComment on above:Order Comment: Waived Testing in the ED is performed under the ED CLIA certificate #[id number].Result Comment: isegura2 Performed By: #### [id number] ####[facility] ([facility])[address] [facility] HOSPITALMarcusS[place]AW, [place] [address]Dflnymu [Mass/Vol]186 mg/iAFarm72-826KfanmpwsbsClermont County HospitalComment on above:Order Comment: Waived Testing in the ED is performed under the ED CLIA certificate #[id number].Result Comment: isegura2 Performed By: #### [id number] #### [facility] ([facility]) [address] [place], [place] [address]VGI7 REFLEX TO FT4on 88-80-1218PDLJDSKMYAF (MIU/L) IN SER/PLAS BY DETECTION LIMIT <= 0.05 MIU/L1.34 mIU/LNormal0.34-5.60UnClermont County HospitalComment on above:Performed By: #### [id number] #### [facility] ([facility]) [address] [place] [address]sh 70-26-848331Sxgcbop is rescheduled for 07/11.Normal [facility]36on 21-03-989432Foi to reschedule patients nephrology appointment. Advised at this time, the appointment will be cancelled and to call back to reschedule.NormalUniversity Hospitals St. John Medical CenterTelephoneon [id number] Nadir Beth 1940 M Date Provider Department Center 05/04/2025 [facility] NEPHRO Comprehensiv Family History Problem Relation Age of Onset Coronary artery disease Father Family Status - Relation Status Age at Mother Father DeceasedNormalUniversCleveland Clinic Avon HospitalCoding Queryon 45-44-0165Platrw QueryCoding Query From: Lay Dominguez RN To: Anai URIARTE; Cc: Ginny Talamantes; Sent: 04/30/2025 07:31:14 EDT ! Subject: Coding Query Due Date/Time: 05/01/2025 07:30:00 EDT Caller Name: NADIR BETH; Caller Number: Sergio , Documentation in the medical record indicates this patient has been admitted with or diagnosed as having: Altered mental status The following is also documented in the medical record: dc jdbudfq-52-labf-old male who was admitted to the hospital [...] and minimal acute/subacute ischemic lacunarinfarcts. likely embolicNormalFisher Sinai Hospital Of BaltimoreCoding QueryCoding Query From: Lay Dominguez RN To: [...] Caller Number: H , M CKD stage 3BNoSumma Health Barberton CampusCoding QueryCoding Query From: Lay Dominguez RN To: [...] to left lower leg limited to skin [facility] HospitalOffice Visiton 60-07-1756Wcvwva-up [id number] Nadir Beth 1940 M Date Provider Department Center 04/30/2025 CLARIBEL VILLALOBOS [facility] Family History Problem Relation Age of Onset Coronary artery disease Father Family Status - Relation Status Age at Mother Father Level of Service:91570 LA OFFICE/OUTPATIENT ESTABLISHED MOD MDM 30 [facility]36on 85-71-901616Pjkvp with patient's daughter and scheduled him an apt to see Dr. Cisneros on 05/03/2025.[facility]36on 06-76-384199Dtwyhai's daughter called to make you aware he had a stroke and was admitted to [facility]. He will be discharged today to SNF. He's scheduled for heart cath with you 05/10. Daughter wants to know if you still want him to have this or if he needs pushed out? Do you need to see him prior to this? Please advise. Thanks.[facility] HospitalBMPon 61-44-7418Gudbd gap [Moles/Vol]12 mmol/LNormal6-16[facility] HospitalComment on above: Performed By: #### [id number] #### [facility] [address] [place], [place] [address]TEA/Creat Ratio22 No MbaauDuff45-82CuksbzAshtabula General Hospital Comment on above:Performed By: #### [id number] #### [facility] [address] [place], [place] [address]Xamozto [Mass/Vol]8.7 mg/dLLow8.9-11.1FMetroHealth Parma Medical CenterComment on above:Performed By: #### [id number] #### [facility] [address] [place], [place] [address]Jbflgmtb [Moles/Vol]102 mmol/XUxnaso374-558UeklpiAshtabula General HospitalComment on above:Performed By: #### [id number] #### [facility] [address] [place], [place] [address]JN9 [Moles/Vol]27 mmol/VJtglxc44-25VczduyAshtabula General Hospital Comment on above:Performed By: #### [id number] #### [facility] [address] [place], [place] [address]Skzlfywxct [Mass/Vol]1.6 mg/dLHigh0.5-1.3FMetroHealth Parma Medical CenterComment on above:Performed By: #### [id number] #### [facility] [address] [place], [place] [address]Tcarrhx [Mass/Vol]233 mg/aJKtee58-666QmdbamAshtabula General HospitalComment on above:Performed By: #### [id number] #### [facility] [address] [place], [place] [address]Jldyvogkb [Moles/Vol]4.3 mmol/LNormal3.5-5.3FMetroHealth Parma Medical CenterComment on above:Performed By: #### [id number] #### [facility] [address] [place] [address]Kvscyv [Moles/Vol]137 mmol/YTcfsya293-869UtnkibAshtabula General HospitalComment on above:Performed By: #### [id number] #### [facility] [address] [place] [address]Ssvt nitrogen [Mass/Vol]35 mg/dLHigh5-21[facility] HospitalComment on above:Performed By: #### [id number] #### [facility] [address] [place] [address]TBQ w/ Auto Diffon 73-35-6093Dbbnewwa Absolute0.0 E9/LNormal 0.0-0.2FMetroHealth Parma Medical CenterComment on above:Performed By: #### [id number] #### [facility] [address] [place] [address]Ygbeeiuao/100 WBC (Bld)0.4 %Normal0.0-2.0[facility] HospitalComment on above:Performed By: #### [id number] #### [facility] [address] [place] [address]Lqx Absolute0.2 E9/LNormal0.0-0.5FMetroHealth Parma Medical Center Comment on above:Performed By: #### [id number] #### [facility] [address] [place] [address]Xdrhgxuxoqh/100 WBC (Bld)2.3 %Normal0.0-8.0[facility] HospitalComment on above:Performed By: #### [id number] #### [facility] [address] [place] [address]Bqtuaydnums distribution width (RBC) [Ratio]20.0 %High10.9-14.2 [facility] HospitalComment on above:Performed By: #### [id number] #### [facility] [address] [place] [address] [place] [address]Yrgjmjzgld (Bld) [Volume fraction]33.0 %Low37.7-49.0[facility] HospitalComment on above:Performed By: #### [id number] #### [facility] [address] [place], [place] [address]Ftbhsknrhg (Bld) [Mass/Vol]10.6 g/dLLow13.5-17.5FMetroHealth Parma Medical CenterComment on above:Performed By: #### [id number] #### [facility] [address] [place], [place] [address]Ccupz Absolute0.7 E9/LLow1.0-4.0[facility] Comment on above:Performed By: #### [id number] #### [facility] [address] [place] [address]Ldgsvolyfqr/100 WBC (Bld)9.6 %Low14.0-50.0[facility] HospitalComment on above:Performed By: #### [id number] #### [facility] [address] [place] [address]RMN (RBC) [Entitic mass]27.3 bdLwqprx95.0-34.0[facility] HospitalComment on above:Performed By: #### [id number] #### [facility] [address] [place] [address]CWHK (RBC) [Mass/Vol]32.2 g/nFKargqi25.4-36.0[facility] HospitalComment on above:Performed By: #### [id number] #### [facility] [address] [place], [place] [address]WAO (RBC) [Entitic vol]84.6 nDDwprgi23.0-100.0[facility] HospitalComment on above:Performed By: #### [id number] #### [facility] [address] [place] [address]Wgyj Absolute0.9 E9/LNormal0.2-1.0[facility] Comment on above:Performed By: #### [id number] #### [facility] [address] [place], [place] [address]Txkemxoes/100 WBC (Bld)11.6 %Normal4.0-14.0[facility] HospitalComment on above:Performed By: #### [id number] #### [facility] [address] [place], [place] [address]Wtkbkw Absolute5.7 E9/LNormal2.0-7.5FMetroHealth Parma Medical Center Comment on above:Performed By: #### [id number] #### [facility] [address] [place], [place] [address]Vqlmvn Auto76.1 %High36.0-75.0[facility] Comment on above:Performed By: #### [id number] #### [facility] [address] [place], [place] [address]Efbxiwzr569.0 E9/GVjynpv628.0-500.0[facility] Comment on above:Performed By: #### [id number] #### [facility] [address] [place], [place] [address]Eltnzhje mean volume (Bld) [Entitic vol]9.0 fLNormal6.4-10.8 [facility] HospitalComment on above:Performed By: #### [id number] #### [facility] [address] [place], [place] [address]YDB6.9 E12/LLow4.3-5.9[facility] HospitalComment on above:Performed By: #### [id number] #### [facility] [address] [place], [place] [address]YCX9.5 E9/LNormal4.0-11.0[facility] HospitalComment on above:Performed By: #### [id number] #### [facility] [address] [place], [place] [address]BBKDPDPPYMguglbc By: Herlinda Beckwith on 59-75-1912Lkvkcis [Mass/Vol]204 mg/gENcns89 - 99 mg/dLFT POC SubsectionComment on above:Result Comment: Notified RN/MDPOC Device [id number] 1Invalid Interpretation Code [facility] POC SubsectionPOC UsernameVOLLMAR, HANNAHInvalid Interpretation CodeFT POC SubsectionSodium [Moles/Vol]746198354 mmol/LInvalid Interpretation CodeFTMC POC SubsectionGlucose [Mass/Vol]212 mg/oQKwrr30 - 99 mg/dLFT POC Subsection Comment on above:Result Comment: Notified RN/MDPOC Device [id number] 1 Invalid Interpretation CodeFTMC POC SubsectionPOC UsernameVOLLMAR, HANNAHInvalid Interpretation CodeFTMC POC SubsectionSodium [Moles/Vol]332735035 mmol/LInvalid Interpretation CodeFT POC SubsectionCHEMISTRYOrdered By: SYSTEM SYSTEM on 73-35-2234Hqrsq gap [Moles/Vol]12 mmol/LNormal6 - 16 mEq/LRemisol ChemCalcium [Mass/Vol]8.7 mg/dLLow8.9 - 11.1 mg/dLRemisol ChemChloride [Moles/Vol]102 mmol/L Fompng073 - 111 mmol/LRemisol ChemCO2 [Moles/Vol]27 mmol/BFkknbh85 - 31 mmol/L Remisol ChemCreatinine [Mass/Vol]1.6 mg/dLHigh0.5 - 1.3 mg/dLRemisol Chem GFR/1.73 sq M.predicted MDRD (S/P/Bld) [Vol rate/Area]42 mL/min/1.73 m2Low >=59mL/min/1.73 k8Ryvtxzp ChemGlucose [Mass/Vol]233 mg/zKZpbh51 - 199 mg/dL Remisol ChemPotassium [Moles/Vol]4.3 mmol/LNormal3.5 - 5.3 mmol/LRemisol Chem Sodium [Moles/Vol]137 mmol/KXcncmr433 - 145 mmol/LRemisol ChemUrea nitrogen [Mass/Vol]35 mg/dLHigh5 - 21 mg/dLRemisol ChemUrea nitrogen/Creatinine [Mass ratio]22 mg/ioEfry94 - 20Remisol ChemCapillary Glucose POCon 14-93-8392Bmpbzfs [Mass/Vol]204 mg/yLKwfd21-71MwedytAshtabula General HospitalComment on above:Result Comment: Notified RN/MDPerformed By: #### [id number] ####[facility] [address] [place], [place] [address]Oxszvvm [Mass/Vol]212 mg/dL Dweq00-17UmsjpnAshtabula General HospitalComment on above:Result Comment: Notified RN/MDPerformed By: #### [id number] #### [facility] [address] [place], [place] [address]Dpghqrmkg Note-Nursingon 28-23-3060Yboiupwsx Note-Nursing Discharge Note-Nursing NADIR BETH :1940 Visit Date:04/14/2025 Inpatient Discharge Instructions Your Care Team Admitting Physician - Layne VERDUGO DO Consulting Physician - Clover Walker MD [facility]ound, XXXX Reason for Your Visit AMS [...] HENDERSON, LU Sweet Where: [facility] [address] [address]- New Follow Up Appointments after Discharge Follow Up with Neurology When: Within 2 to 4 weeks Comments: Call for followup appointment Where: [phone] Medications What How Much When Why Instructions [...] Mouth Every day 04/19/2025 (more content not included)...NormalAshtabula General HospitalHEMATOLOGYOrdered By: SYSTEM SYSTEM on 44-54-3580Cslymgznw/100 WBC (Bld)0.4 %Normal0.0 - 2.0 % Remisol [...] 50.0 % Remisol HemeMCH (RBC) [Entitic mass]27.3 hyZpjura01.0 - 34.0 pgRemisol HemeMCHC (RBC) [Mass/Vol]32.2 g/yNZupayz00.4 - 36.0 gm/dLRemisol HemeMCV (RBC) [Entitic vol]84.6 wCBkwupn68.0 - 100.0 fLRemisol HemeMonocytes (Bld) [#/Vol]0.9 E9/L Normal0.2 - 1.0 E9/LRemisol HemeMonocytes/100 WBC (Bld)11.6 %Normal4.0 - 14.0 % Remisol HemeNeutrophils (Bld) [#/Vol]5.7 E9/LNormal2.0 - 7.5 E9/LRemisol Heme Neutrophils/100 WBC (Bld)76.1 %High36.0 - 75.0 %Remisol HemePlatelet mean volume (Bld) [Entitic vol]9.0 fLNormal6.4 - 10.8 fLRemisol HemePlatelets (Bld) [#/Vol] 234.0 E9/CYuhugu460.0 - 500.0 E9/LRemisol HemeRBC (Bld) [#/Vol]3.9 E12/LLow4.3 - 5.9 E12/LRemisol HemeWBC corrected for nucl RBC Auto (Bld) [#/Vol]7.5 E9/L Normal4.0 - 11.0 E9/LRemisol HemeInpatient Clinical Summaryon 04-18-2025 Inpatient Clinical SummaryInpatient Clinical Summary [address] [address] Clinical Summary Person Information: Name: NADIR BETH Age: 85 Years : 1940 Sex: Male PCP: Van Youssef MD Marital Status: Race: White Ethnicity: Non- or Language: Comoran Visit Id: Visit Reason: Altered mental status; Headache; Potential stroke; stroke Speciality: Acuity: Enc Type: Inpatient Med Service: Medical Arrival: 04/14/2025 16:53:36 Discharge: Dispo Type: Admitted as IP to this Hosp Address: [address] [place] [id number] Provider Notes: Diagnosis: 1:CVA (cerebrovascular accident); 2:Atrial [...] VERDUGO DO Consulting Physician: Clover Walker MD; [facility] [place]ound, XXXX Referring Physician: Follow up: With: Address: When: Neurology [phone] Within 2 to 4 weeks Comments: Call for followup appointment Type Location Start Finish [facility] Office Visit [facility] [place] 06/11/2025 11:40 AM 06/11/2025 12:00 PM Confirmed Patient Education Information: Type 2 Diabetes Mellitus, Diagnosis, Adult; Atrial Fibrillation; Core Measures: Stroke (Cerebrovascular Accident) [facility], (Custom)[facility] HospitalInpatient Patient Summaryon 06-23-2595Fmtteemzq Patient SummaryInpatient Patient Summary [place] [address] Patient Discharge Instructions PERSON INFORMATION Name: NADIR [...] None Follow up: With: Address: When: Neurology [phone] Within 2 to 4 weeks Comments: Call for followup appointment In the event that this physician does not participate in your insurance network, please consult with your insurance company to find a nearby participating provider. Type Location Start Finish [facility] Office Visit [facility] [place] 06/11/2025 11:40 AM 06/11/2025 12:00 PM Confirmed [...] Dose: Next Dose: omepra (more content not included)...[facility] Interdisciplinary Note - Case Manageron 48-70-5466Byputnkqkpmtxraih Note - Case ManagerInterdisciplinary Note - International Trade Compliance Manager Patient awake and alert eating breakfast in bed. and dtr at bedside. [facility] 3MN and can dc when medically clear. and daughterwill transport at dc. Patient will dc today. Denies any further concerns.[facility] HospitalComment on above:Result Comment: Electronically Signed By: Jihan De Oliveira\.br\Date and Time Signed: 04/18/25 09:36 EDTeGFRon 76-91-3238vXZT17 mL/min/1.73 m2Low>=59 [facility] HospitalComment on above:Performed By: #### [id number] #### [facility] [address], [place] [address]HOMop 63-41-9009Sbjxb gap [Moles/Vol]15 mmol/LNormal6-16[facility] HospitalComment on above:Performed By: #### [id number] #### [facility] [address], [place] [address]GYA/Creat Ratio21 No XnoihDkrb78-51TbpktpAshtabula General Hospital Comment on above:Performed By: #### [id number] #### [facility] [address], [place] [address]Prwxaee [Mass/Vol]8.8 mg/dLLow8.9-11.1FMetroHealth Parma Medical CenterComment on above:Performed By: #### [id number] #### [facility] [address], [place] [address]Phubkkjl [Moles/Vol]104 mmol/PSfcxfz935-556YbhwlgAshtabula General HospitalComment on above:Performed By: #### [id number] #### [facility] [address], [place] [address]LS3 [Moles/Vol]26 mmol/ISdyzsy02-53BpjjuiAshtabula General Hospital Comment on above:Performed By: #### [id number] #### [facility] [address], [place] [address]Rltecrqrgd [Mass/Vol]1.6 mg/dLHigh0.5-1.3FMetroHealth Parma Medical CenterComment on above:Performed By: #### [id number] #### [facility] [address], [place] [address]Dxklade [Mass/Vol]222 mg/tOJkxm49-499ZyrlonAshtabula General HospitalComment on above:Performed By: #### [id number] #### [facility] [address], [place] [address]Bpmomvfko [Moles/Vol]4.1 mmol/LNormal3.5-5.3FMetroHealth Parma Medical CenterComment on above:Performed By: #### [id number] #### [facility] [address], [place] [address]Ougoie [Moles/Vol]141 mmol/MCeasbo778-906GbzxbdAshtabula General HospitalComment on above:Performed By: #### [id number] #### [facility] [address] [place], [place] [address]Pjtk nitrogen [Mass/Vol]34 mg/dLHigh5-21[facility] HospitalComment on above:Performed By: #### [id number] #### [facility] [address] [place], [place] [address]NVK w/ Auto Diffon 64-13-4053Loummsuh Absolute0.1 E9/LNormal 0.0-0.2FMetroHealth Parma Medical CenterComment on above:Performed By: #### [id number] #### [facility] [address], [place] [address]Ztvqmihsb/100 WBC (Bld)0.6 %Normal0.0-2.0[facility] General HospitalComment on above:Performed By: #### [id number] #### [facility] [address] [place], [place] [address]Esh Absolute0.1 E9/LNormal0.0-0.5FMetroHealth Parma Medical Center Comment on above:Performed By: #### [id number] #### [facility] [address] [place], [place] [address]Ytkidzorgct/100 WBC (Bld)0.6 %Normal0.0-8.0[facility] HospitalComment on above:Performed By: #### [id number] #### [facility] [address] [place], [place] [address]Hwwvjgqhpcd distribution width (RBC) [Ratio]20.3 %High10.9-14.2 [facility] HospitalComment on above:Performed By: #### [id number] #### [facility] [address] [place] [address]Wjekrsfqtb (Bld) [Volume fraction]34.9 %Low37.7-49.0[facility] HospitalComment on above:Performed By: #### [id number] #### [facility] [address] [place] [address]Axelapqpju (Bld) [Mass/Vol]11.2 g/dLLow13.5-17.5FMetroHealth Parma Medical CenterComment on above:Performed By: #### [id number] #### [facility] [address] [place] [address]Olmbx Absolute0.7 E9/LLow1.0-4.0[facility] Comment on above:Performed By: #### [id number] #### [facility] [address], [place] [address]Iykkeevasmx/100 WBC (Bld)7.1 %Low14.0-50.0[facility] HospitalComment on above:Performed By: #### [id number] #### [facility] [address], [place] [address]ZPZ (RBC) [Entitic mass]27.5 okYdjsdx75.0-34.0[facility] HospitalComment on above:Performed By: #### [id number] #### [facility] [address] [place] [address]JEHM (RBC) [Mass/Vol]32.2 g/dGOpcxfs32.4-36.0[facility] HospitalComment on above:Performed By: #### [id number] #### [facility] [address] [place] [address]TYI (RBC) [Entitic vol]85.4 vNUkutvm32.0-100.0[facility] HospitalComment on above:Performed By: #### [id number] #### [facility] [address], [place] [address]Kbva Absolute1.4 E9/LHigh0.2-1.0[facility] Comment on above:Performed By: #### [id number] #### [facility] [address] [place] [address]Hazdrnhwu/100 WBC (Bld)13.7 %Normal4.0-14.0[facility] HospitalComment on above:Performed By: #### [id number] #### [facility] [address], [place] [address]Afvywl Absolute7.7 E9/LHigh2.0-7.5FMetroHealth Parma Medical Center Comment on above:Performed By: #### [id number] #### [facility] [address], [place] [address]Iqfsap Auto78.0 %High36.0-75.0[facility] Comment on above:Performed By: #### [id number] #### [facility] [address] [place], [place] [address]Ehsfeuhj384.0 E9/YOppbiz233.0-500.0[facility] Comment on above:Performed By: #### [id number] #### [facility] [address] [place], [place] [address]Fvtygidw mean volume (Bld) [Entitic vol]9.1 fLNormal6.4-10.8 [facility] HospitalComment on above:Performed By: #### [id number] #### [facility] [address] [place], [place] [address]PFI0.1 E12/LLow4.3-5.9[facility] HospitalComment on above:Performed By: #### [id number] #### [facility] [address] [place] [address]XIS8.9 E9/LNormal4.0-11.0[facility] HospitalComment on above:Performed By: #### [id number] #### [facility] [address] [place], [place] [address]GHFBBKDQHNfxqnpn By: Lab Amena on 18-12-7524Rxezdio [Mass/Vol]203 mg/tGAdbn40 - 99 mg/dLDRUMRIGHT [facility] POC SubsectionComment on above:Result Comment: Notified RN/JOEL Device [id number] Interpretation Code [facility] POC SubsectionPOC UsernameWYLIE, ARIANNAInvalid Interpretation CodeDR[facility]RIGHT [facility] POC SubsectionSodium [Moles/Vol][id number] mmol/LInvalid Interpretation CodeDRUMRIGHT REGION[facility] POC SubsectionCHEMISTRYOrdered By: SYSTEM SYSTEM on 34-19-4005Wbghy gap [Moles/Vol] 15 mmol/LNormal6 - 16 mEq/LRemisol ChemCalcium [Mass/Vol]8.8 mg/dLLow8.9 - 11.1 mg/dLRemisol ChemChloride [Moles/Vol]104 mmol/DCujrzh501 - 111 mmol/LRemisol ChemCO2 [Moles/Vol]26 mmol/WGkyjkn66 - 31 mmol/LRemisol ChemCreatinine [Mass/Vol]1.6 mg/dLHigh0.5 - 1.3 mg/dLRemisol ChemGFR/1.73 sq M.predicted MDRD (S/P/Bld) [Vol rate/Area]42 mL/min/1.73 m2Low>=59mL/min/1.73 s7Hljbqhv Chem Glucose [Mass/Vol]222 mg/hIAiqu59 - 199 mg/dLRemisol ChemPotassium [Moles/Vol] 4.1 mmol/LNormal3.5 - 5.3 mmol/LRemisol ChemSodium [Moles/Vol]141 mmol/LNormal 135 - 145 mmol/LRemisol ChemUrea nitrogen [Mass/Vol]34 mg/dLHigh5 - 21 mg/dL Remisol ChemUrea nitrogen/Creatinine [Mass ratio]21 mg/glZbqp78 - 20Remisol Chem Capillary Glucose POCon 67-81-4557Vkrrjjj [Mass/Vol]203 mg/lBMwwa77-65AvhbreAshtabula General HospitalComment on above:Result Comment: Notified RN/MDPerformed By: #### [id number] #### [facility] [address] [place] [address]Sxswzmy [Mass/Vol]240 mg/hVRffj71-98ShrodnAshtabula General Hospital Comment on above:Result Comment: Notified RN/MDPerformed By: #### [id number] #### [facility] [address] [place] [address]Kihnsgo [Mass/Vol]304 mg/kVJjct04-11Fynnrj[address] Comment on above:Result Comment: Notified RN/MDPerformed By: #### [id number] #### [facility] [address] [place] [address]Nwrwdwe [Mass/Vol]191 mg/oTFqrc29-95Fovgbg[address] Comment on above:Result Comment: Notified RN/MDPerformed By: #### [id number] #### [facility] [address] [place] [address]Xigaku Queryon 98-01-2152Sxtval QueryCoding Query From: Tanesha Mcdowell RN To: [...] ]Acute on Chronic Diastolic (Preserved EF) Heart FailureNoSumma Health Barberton CampusCoding QueryCoding Query From: Tanesha Mcdowell RN To: [...] , M __]Demand Ischemia (without a myocardial infarction)NormalAshtabula General HospitalHEMATOLOGYOrdered By: SYSTEM SYSTEM on 98-23-2279Whnccejkx/100 WBC (Bld) 0.6 %Normal0.0 - 2.0 %Remisol [...] 27.0 - 34.0 pgRemisol HemeMCHC (RBC) [Mass/Vol]32.2 g/bTSdhxzv10.4 - 36.0 gm/dL Remisol HemeMCV (RBC) [Entitic vol]85.4 pERrqoai03.0 - 100.0 fLRemisol Heme Monocytes (Bld) [#/Vol]1.4 E9/LHigh0.2 - 1.0 E9/LRemisol HemeMonocytes/100 WBC (Bld)13.7 %Normal4.0 - 14.0 %Remisol HemeNeutrophils (Bld) [#/Vol]7.7 E9/LHigh 2.0 - 7.5 E9/LRemisol HemeNeutrophils/100 WBC (Bld)78.0 %High36.0 - 75.0 % Remisol HemePlatelet mean volume (Bld) [Entitic vol]9.1 fLNormal6.4 - 10.8 fL Remisol HemePlatelets (Bld) [#/Vol]237.0 E9/CZfegfi979.0 - 500.0 E9/LRemisol HemeRBC (Bld) [#/Vol]4.1 E12/LLow4.3 - 5.9 E12/LRemisol HemeWBC corrected for nucl RBC Auto (Bld) [#/Vol]9.9 E9/LNormal4.0 - 11.0 E9/LRemisol Heme Interdisciplinary Note - Case Manageron 64-91-7448Fepbtgnpnpufzlxzo Note - Case ManagerInterdisciplinary Note - International Trade Compliance Manager Patient awake and alert eating breakfast in bed. and dtr at bedside. [facility] patient has completed 3MN and can dc when medically clear. and dtr unsure if they will transport patient or if they will need transport set up. Dtr states she would like to see how patient does with PT first. Denies any further concerns. Family will transport patient [facility] HospitalComment on above:Result Comment: Electronically Signed By: Jihan De Oliveira\.br\Date and Time Signed: 04/17/25 10:54 EDTInterdisciplinary Note - Case ManagerInterdisciplinary Note - International Trade Compliance Manager Patient awake and alert eating breakfast in bed. and dtr at bedside. [facility] patient has completed 3MN and can dc when medically clear. and dtr unsure if they will transport patient or if they will need transport set up. Dtr states she would like to see how patient does with PT first. Denies any further concerns.NormalAshtabula General HospitalComment on above:Result Comment: Electronically Signed By: Jihan De Oliveira\.br\Date and Time Signed: 04/17/25 08:41 EDTRPR with Conf Rfxon 53-69-0979ZBM QualNon-ReactiveInvalid Interpretation CodeNon ReactiveAshtabula General HospitalComment on above:Result Comment: Performed at: [facility] [address] [id number] PhD Huan VyasPerformed By: #### [id number] #### [facility] [address], [place] [address]nTDQpg 08-94-8680jTNA76 mL/min/1.73 m2Low>=59[facility] HospitalComment on above:Performed By: #### [id number] #### [facility] [address], [place] [address]TJPhn 30-22-8729Steka gap [Moles/Vol]18 mmol/LHigh6-16[facility] HospitalComment on above:Performed By: #### [id number] #### [facility] [address], [place] [address]CCJ/Creat Ratio19 No DqolsOwqfop23-54KgpqduAshtabula General HospitalComment on above:Performed By: #### [id number] #### [facility] [address], [place] [address]Arywznm [Mass/Vol]9.2 mg/dLNormal8.9-11.1FMetroHealth Parma Medical CenterComment on above:Performed By: #### [id number] #### [facility] [address], [place] [address]Rwdamgye [Moles/Vol]103 mmol/OVzjimh907-990VxazzkAshtabula General HospitalComment on above:Performed By: #### [id number] #### [facility] [address], [place] [address]HQ3 [Moles/Vol]24 mmol/IAnpvtb93-74TtszynAshtabula General Hospital Comment on above:Performed By: #### [id number] #### [facility] [address], [place] [address]Wjgdnoavrd [Mass/Vol]1.7 mg/dLHigh0.5-1.3FMetroHealth Parma Medical CenterComment on above:Performed By: #### [id number] #### [facility] [address], [place] [address]Rnauunl [Mass/Vol]212 mg/jRHnag71-156YmvmxnAshtabula General HospitalComment on above:Performed By: #### [id number] #### [facility] [address] [place] [address]Xhsgsremm [Moles/Vol]3.9 mmol/LNormal3.5-5.3FMetroHealth Parma Medical CenterComment on above:Performed By: #### [id number] #### [facility] [address] [place] [address]Gjplkx [Moles/Vol]141 mmol/VEklhid180-479WcdlobAshtabula General HospitalComment on above:Performed By: #### [id number] #### [facility] [address], [place] [address]Ylty nitrogen [Mass/Vol]33 mg/dLHigh5-21[facility] HospitalComment on above:Performed By: #### [id number] #### [facility] [address], [place] [address]FMQ w/ Auto Diffon 11-16-5038Pzkovgke Absolute0.0 E9/LNormal 0.0-0.2FMetroHealth Parma Medical CenterComment on above:Performed By: #### [id number] #### [facility] [address] [place] [address]Ofvbvbfqv/100 WBC (Bld)0.1 %Normal0.0-2.0[facility] HospitalComment on above:Performed By: #### [id number] #### [facility] [address] [place] [address]Kvl Absolute0.0 E9/LNormal0.0-0.5FMetroHealth Parma Medical Center Comment on above:Performed By: #### [id number] #### [facility] [address] [place] [address]Rpnbcfbyzys/100 WBC (Bld)0.2 %Normal0.0-8.0[facility] HospitalComment on above:Performed By: #### [id number] #### [facility] [address] [place] [address]Xhgikudqwuj distribution width (RBC) [Ratio]20.4 %High10.9-14.2 [facility] HospitalComment on above:Performed By: #### [id number] #### [facility] [address] [place] [address]Xlotrjngzc (Bld) [Volume fraction]37.2 %Low37.7-49.0[facility] HospitalComment on above:Performed By: #### [id number] #### [facility] [address] [place] [address]Nyxnymzeuv (Bld) [Mass/Vol]11.9 g/dLLow13.5-17.5FMetroHealth Parma Medical CenterComment on above:Performed By: #### [id number] #### [facility] [address] [place] [address]Bpnpn Absolute0.7 E9/LLow1.0-4.0[facility] Comment on above:Performed By: #### [id number] #### [facility] [address] [place] [address]Inzvjctpvgp/100 WBC (Bld)4.6 %Low14.0-50.0[facility] HospitalComment on above:Performed By: #### [id number] #### [facility] [address], [place] [address]UPS (RBC) [Entitic mass]27.2 yeRjxwbm81.0-34.0[facility] HospitalComment on above:Performed By: #### [id number] #### [facility] [address], [place] [address]TZFK (RBC) [Mass/Vol]32.0 g/qKWbsxin33.4-36.0[facility] HospitalComment on above:Performed By: #### [id number] #### [facility] [address], [place] [address]BPG (RBC) [Entitic vol]84.9 hSLsppjl20.0-100.0[facility] HospitalComment on above:Performed By: #### [id number] #### [facility] [address] [place] [address]Xbhr Absolute1.6 E9/LHigh0.2-1.0[facility] Comment on above:Performed By: #### [id number] #### [facility] [address], [place] [address]Amprgzfvi/100 WBC (Bld)10.8 %Normal4.0-14.0[facility] HospitalComment on above:Performed By: #### [id number] #### [facility] [address], [place] [address]Lbvsmi Wsosydty05.3 E9/LHigh2.0-7.5FMetroHealth Parma Medical Center Comment on above:Performed By: #### [id number] #### [facility] [address], [place] [address]Njxebi Auto84.3 %High36.0-75.0[facility] Comment on above:Performed By: #### [id number] #### [facility] [address], [place] [address]Oveznvfa740.0 E9/SObddil992.0-500.0[facility] Comment on above:Performed By: #### [id number] #### [facility] [address], [place] [address]Lqvrobtz mean volume (Bld) [Entitic vol]8.7 fLNormal6.4-10.8 [facility] HospitalComment on above:Performed By: #### [id number] #### [facility] [address], [place] [address]XQT0.4 E12/LNormal4.3-5.9[facility] HospitalComment on above:Performed By: #### [id number] #### [facility] [address], [place] [address]CWA37.6 E9/LHigh4.0-11.0[facility] HospitalComment on above:Performed By: #### [id number] #### [facility] [address], [place] [address]YEUAECNIYQnfiznf By: SYSTEM SYSTEM on 38-60-4552Ltxjn gap [Moles/Vol]18 mmol/LHigh6 - 16 mEq/LRemisol ChemCalcium [Mass/Vol]9.2 mg/dL Normal8.9 - 11.1 mg/dLRemisol ChemChloride [Moles/Vol]103 mmol/NRbuksu386 - 111 mmol/LRemisol ChemCO2 [Moles/Vol]24 mmol/DWggoif62 - 31 mmol/LRemisol Chem Creatinine [Mass/Vol]1.7 mg/dLHigh0.5 - 1.3 mg/dLRemisol ChemGFR/1.73 sq M.predicted MDRD (S/P/Bld) [Vol rate/Area]39 mL/min/1.73 m2Low>=59mL/min/1.73 m2 Remisol ChemGlucose [Mass/Vol]212 mg/bCNiqg83 - 199 mg/dLRemisol ChemMagnesium [Mass/Vol]2.4 mg/dLNormal1.3 - 2.4 mg/dLRemisol ChemPotassium [Moles/Vol]3.9 mmol/LNormal3.5 - 5.3 mmol/LRemisol ChemSodium [Moles/Vol]141 mmol/TLkhfaa324 - 145 mmol/LRemisol ChemUrea nitrogen [Mass/Vol]33 mg/dLHigh5 - 21 mg/dLRemisol ChemUrea nitrogen/Creatinine [Mass ratio]19 mg/hhDhoixd77 - 20Remisol Chem Capillary Glucose POCon 00-63-8468Ciwltcr [Mass/Vol]265 mg/uDEkyv09-31NolcqaAshtabula General HospitalComment on above:Result Comment: Notified RN/MDPerformed By: #### [id number] #### [facility] [address], [place] [address]Pwqbloh [Mass/Vol]246 mg/eFFcto82-24Fquvnf[address] Comment on above:Result Comment: Notified RN/MDPerformed By: #### [id number] #### [facility] [address], [place] [address]Wgvmqut [Mass/Vol]294 mg/rNSntj83-63Yzmkok[address] Comment on above:Result Comment: Notified RN/MDPerformed By: #### [id number] #### [facility] [address], [place] [address]Oapkqxo [Mass/Vol]195 mg/pAXxms67-00Nhsifa[address] Comment on above:Result Comment: Notified RN/MDPerformed By: #### [id number] #### [facility] [address], [place] [address]Qyafkc Queryon 12-57-7245Vmisyc QueryCoding Query From: Tanesha Mcdowell RN To: [...] answer is desired or expected. Thank you!tanesha 6396NormalAshtabula General HospitalHEMATOLOGYOrdered By: SYSTEM SYSTEM on 61-81-7217Haixrddld/100 WBC (Bld) 0.1 %Normal0.0 - 2.0 %Remisol [...] 27.0 - 34.0 pgRemisol HemeMCHC (RBC) [Mass/Vol]32.0 g/zNXyekmc21.4 - 36.0 gm/dL Remisol HemeMCV (RBC) [Entitic vol]84.9 nUZvobpv65.0 - 100.0 fLRemisol Heme Monocytes (Bld) [#/Vol]1.6 E9/LHigh0.2 - 1.0 E9/LRemisol HemeMonocytes/100 WBC (Bld)10.8 %Normal4.0 - 14.0 %Remisol HemeNeutrophils (Bld) [#/Vol]12.3 E9/LHigh 2.0 - 7.5 E9/LRemisol HemeNeutrophils/100 WBC (Bld)84.3 %High36.0 - 75.0 % Remisol HemePlatelet mean volume (Bld) [Entitic vol]8.7 fLNormal6.4 - 10.8 fL Remisol HemePlatelets (Bld) [#/Vol]268.0 E9/PNxsexu869.0 - 500.0 E9/LRemisol HemeRBC (Bld) [#/Vol]4.4 E12/LNormal4.3 - 5.9 E12/LRemisol HemeWBC corrected for nucl RBC Auto (Bld) [#/Vol]14.6 E9/LHigh4.0 - 11.0 E9/LRemisol FkteFitU7nql 07-53-7697FyW4d (Bld) [Mass fraction]9.9 %High<=5.9[facility] Comment on above:Performed By: #### [id number] #### [facility] [address] [place] [address]Cljbcjnfk Clinical Summaryon 55-80-7847Ndqprpuvq Clinical SummaryInpatient Clinical Summary [address] [address] Clinical Summary Person Information: Name: NADIR BETH Age: 85 Years : 1940 Sex: Male PCP: Van Youssef MD Marital Status: Race: White Ethnicity: Non- or Language: Comoran Visit Id: Visit Reason: Altered mental status; Headache; Potential stroke; stroke Speciality: Acuity: Enc Type: Inpatient Med Service: Medical Arrival: 04/14/2025 16:53:36 Discharge: Dispo Type: Admitted as IP to this Hosp Address: [address] [facility] [id number] Provider Notes: Diagnosis: 1:CVA (cerebrovascular accident); 2:Atrial [...] VERDUGO DO Consulting Physician: Clover Walker MD; [facility] Cardio, XXXX; [facility] Wound, XXXX Referring Physician: Follow up: With: Address: When: Neurology [phone] Within 2 to 4 weeks Comments: Call for followup a (more content not included)...[facility] HospitalInpatient Patient Summaryon 89-17-8929Sburxngxr Patient SummaryInpatient Patient Summary [place] [address] Patient Discharge Instructions PERSON INFORMATION Name: NADIR [...] results: Follow up: With: Address: When: Neurology [phone] Within 2 to 4 weeks Comments: Call for followup appointment In the event that this physician does not participate in your insurance network, please consult with your insurance company to find a nearby participating provider. Type Location Start Finish State URO Office Visit [facility] [place] Dominguez 06/11/2025 11:40 AM 06/11/2025 12:00 [...] times a day. [place] (more content not included)...[facility] Interdisciplinary Note - Case Manageron 94-71-3550Ulgievxdyqubzjifm Note - Case ManagerInterdisciplinary Note - International Trade Compliance Manager CRM to room 202 Patient is awake, [...] and pericardial effusion. Patient is assigned to [facility] SHIFT FOREMAN, see notes. Patient has wound, cardiology and neurology on case. Patient is pending MRI. He is getting an ECHO now. Patient has recs from therapy for SNF. Patient spouse would like him referred to [facility]. Patient can DC there if accepted on 04/17 per 3 M needed. Patient white board updated. CRM following, contact info provided. DC plan SNF, pending [facility]Comment [facility]:Result Comment: Electronically Signed By: Cierra Rouse\.br\Date and Time Signed: 04/16/25 11:58 EDTInterdisciplinary Note - Case ManagerInterdisciplinary Note - International Trade Compliance Manager CRM to room 202 Patient is awake, [...] and pericardial effusion. Patient is assigned to [facility] SHIFT FOREMAN, see notes. Patient has wound, cardiology and neurology on case. Patient is pending MRI. He is getting an ECHO now. Patient has recs from therapy for SNF. Patient spouse would like him referred to [facility]. Patient can DC there if accepted on 04/17 per 3 M needed. Patient white board updated. CRM following, contact info provided. DC plan [facility]F, pending [facility] SystemComment on above:Result Comment: Electronically Signed By: Cierra Rouse.mary\Date and Time Signed: 04/16/25 09:48 EDTInterdisciplinary Note - Nursingon 66-03-4526Okmhfaafaxzacrzgj Note - NursingInterdisciplinary Note - Nursing pt has a stasis ulcer on left lower leg. 1.2cm long by 1.2cm wide by 0.1 depth. staff can continue with antibiotic ointment, or may use maya and dry dressing change every other day. follow up out patient wound clinicNoSumma Health Barberton CampusInterdisciplinary Note - OTon 56-30-2213Lqmkyzhxjjvvdrsul Note - OTInterdisciplinary Note - OT OT [facility] six clicks score 16/24 = SNF. Patient requires MIN A w/ sit to stand transfers at eob, Min- mod A w dynamic standing adls. Pt requires mod vc for walker safety and sequencing w/ all functional tasks. Inpatient OT services to follow daily to progress as tolerates w/ self help skills.[facility] HospitalMRI Brain w/o Contraston 74-46-0536XPA Brain w/o ContrastExam Date/Time: 04/16/2025 11:05 EDT [...] Thom Rashid MD Transcribed by: MARII Technologist: AmaliaAshtabula General HospitalMagnesiumon 26-64-1656Bggqwxlai [Mass/Vol]2.4 mg/dLNormal1.3-2.4FMetroHealth Parma Medical Center Comment on above:Performed By: #### [id number] #### [facility] [address], [place] [address]yGDWyj 56-31-2667pVNC19 mL/min/1.73 m2Low>=59[facility] HospitalComment on above:Performed By: #### [id number] #### [facility] [address], [place] [address]TKXbi 51-26-3613Hitvp gap [Moles/Vol]20 mmol/LHigh6-16[facility] HospitalComment on above:Performed By: #### [id number] #### [facility] [address], [place] [address]MLG/Creat Ratio18 No XgztaJrbjxs28-34ZwbrfgAshtabula General HospitalComment on above:Performed By: #### [id number] #### [facility] [address], [place] [address]Cgarfym [Mass/Vol]9.4 mg/dLNormal8.9-11.1FMetroHealth Parma Medical CenterComment on above:Performed By: #### [id number] #### [facility] [address], [place] [address]Xmtoicrj [Moles/Vol]102 mmol/NBfxkvt728-864XuibaiAshtabula General HospitalComment on above:Performed By: #### [id number] #### [facility] [address], [place] [address]DO6 [Moles/Vol]24 mmol/PIqosoy02-89UdesipAshtabula General Hospital Comment on above:Performed By: #### [id number] #### [facility] [address], [place] [address]Flkuvafwjf [Mass/Vol]1.7 mg/dLHigh0.5-1.3FMetroHealth Parma Medical CenterComment on above:Performed By: #### [id number] #### [facility] [address], [place] [address]Niclezv [Mass/Vol]208 mg/mQYuum78-981FpdrkiAshtabula General HospitalComment on above:Performed By: #### [id number] #### [facility] [address], [place] [address]Ynmzrznjz [Moles/Vol]4.0 mmol/LNormal3.5-5.3FMetroHealth Parma Medical CenterComment on above:Performed By: #### [id number] #### [facility] [address], [place] [address]Stpsgw [Moles/Vol]142 mmol/AYekhui234-561FdicadAshtabula General HospitalComment on above:Performed By: #### [id number] #### [facility] [address], [place] [address]Wclp nitrogen [Mass/Vol]30 mg/dLHigh5-21[facility] HospitalComment on above:Performed By: #### [id number] #### [facility] [address], [place] [address]FLMWARVZZZbxakgp By: SYSTEM SYSTEM on 18-19-8912Lwnrhmofqpr [Mass/Vol]210 mg/cHZkue182 - 200 mg/dLRemisol ChemCholesterol in HDL [Mass/Vol] 88 mg/dLInvalid Interpretation CodeRemisol ChemComment on above:Result Comment: '>= 60 LOW RISK' '<= 40 HIGH RISK'Cholesterol in LDL [Mass/Vol]107 mg/dLNormal<=129mg/dLRemisol ChemCholesterol in VLDL [Mass/Vol]9 mg/dLNormal7 - 40 mg/dLRemisol ChemCobalamin (Vitamin B12) [Mass/Vol]573 pg/jAZggzwx12 - 1500 pg/mLRemisol ChemFolate [Mass/Vol]ng/mLNormal>=6.7ng/mLRemisol ChemMagnesium [Mass/Vol]2.6 [...] Sensitivity Troponin I Instructions For Use, [place], June 2018)TSH Qn0.50 m[IU]/LNormal0.34 - 5.60 mcIU/mLRemisol ChemCHEMISTRY Ordered By: Priyanka Daly on 14-00-1182GrA9y (Bld) [Mass fraction]9.9 %High <=5.9%[facility] ChemAutoSSCOAGULATIONOrdered By: Deb Maza on 92-48-9813zSWR Coag (PPP) [Time]45.1 sHigh25.1 - 36.5 second(s)[facility] Auto CoagComment on above: Interpretive Data: Parameter [...] the same coagulation reagent and instrumentation as [facility]. Currently there are no coagulation studies available worldwide for children to 14 days, andno normal ranges. Heparin therapeutic range (represented by Anti-Factor Xa activity of 0.2 - 0.4 U/mL) corresponds to PTT of 56.6 - 109.0 sec.INR Coag (PPP) [Relative time]0.95 {INR}Invalid Interpretation CodeDRUMRIGHT REGIONAL HOSPITAL [facility] Auto CoagComment on above:Interpretive Data: INR results are specifically intended to assess patients stabilized on long-term Anticoagulation therapy suggested INR s Less Intensive Anticoagulation 2.0 3.0 Conventional Range 3.0 4.5PT Coag (PPP) [Time]10.6 sNormal9.4 - 12.5 second(s) [facility] Auto CoagComment on above:Interpretive Data: 15 days [...] the same coagulation reagent and instrumentation as [facility]. Currently there are no coagulation studies available worldwide for children to 14 days, andno normal ranges.COAGULATIONOrdered By: Samir Naidu on 48-31-2105jSCO Coag (PPP) [Time]53.2 sHigh25.1 - 36.5 second(s)[facility] Auto CoagComment on above:Interpretive Data: Parameter 15 [...] the same coagulation reagent and instrumentation as [facility]. Currently there are no coagulation studies available worldwide for children to 14 days, andno normal ranges. Heparin therapeutic range (represented by Anti-Factor Xa activity of 0.2 - 0.4 U/mL) corresponds to PTT of 56.6 - 109.0 sec.INR Coag (PPP) [Relative time]0.96 {INR}Invalid Interpretation CodeDRUMRIGHT REGIONAL HOS[facility]ITAL [facility] Auto CoagComment on above:Interpretive Data: INR results are specifically intended to assess patients stabilized on long-term Anticoagulation therapy suggested INR s Less Intensive Anticoagulation 2.0 3.0 Conventional Range 3.0 4.5PT Coag (PPP) [Time]10.8 sNormal9.4 - 12.5 second(s) [facility] Auto CoagComment on above:Interpretive Data: 15 days [...] the same coagulation reagent and instrumentation as [facility]. Currently there are no coagulation studies available worldwide for children to 14 days, andno normal ranges.Capillary Glucose [facility] 07-30-3876Ogohpkb [Mass/Vol]177 mg/dLHigh 55-99[facility] HospitalComment on above:Result Comment: Notified RN/MD Performed By: #### [id number] #### [facility] [address], [place] [address]Ouqvxpu [Mass/Vol]202 mg/hSIxim14-65XesxgzAshtabula General Hospital Comment on above:Result Comment: Notified RN/MDPerformed By: #### [id number] #### [facility] [address], [place] [address]Ratygem [Mass/Vol]216 mg/wJJsih82-57PwxcpzAshtabula General Hospital Comment on above:Result Comment: Notified RN/MDPerformed By: #### [id number] #### [facility] [address], [place] [address]Hbkumes [Mass/Vol]242 mg/kUAzbp67-79CpxylgAshtabula General Hospital Comment on above:Result Comment: Notified RN/MDPerformed By: #### [id number] #### [facility] [address], [place] [address]Gqebd Linn 40-06-7822XA Tube CollectedYesInvalid Interpretation CodeAshtabula General HospitalComment on above:Performed By: #### [id number] #### [facility] [address], [place] [address]Zsqstngs 27-37-7342Heajti Lvl>22.3Normal>=6.7FMetroHealth Parma Medical CenterComment on above:Performed By: #### [id number] #### [facility] [address], [place] [address]Cvoglynxffvs 38-65-5282Eyskjyapcb (Bld) [Mass/Vol]12.2 g/dLLow 13.5-17.5FMetroHealth Parma Medical CenterComment on above:Performed By: #### [id number] #### [facility] [address] [place] [address]Gzjbotvhlvxzznpcz Note - OTon 91-06-1581Zsfwbuurdqafrpcsy Note - OTInterdisciplinary Note - OT OT chart reviewed and spoke to nursing with request to hold today until pt. is more medically stable. Will recheck tomorrow.[facility] Interdisciplinary Note - Speech Languageon 83-41-8674Ehmkeigjizqekjcvr Note - Speech LanguageInterdisciplinary Note - Speech [...] speech/language/cog up to 5x/week to address these deficits.[facility] HospitalLipid Panelon 04-15-2025 Cholesterol [Mass/Vol]210 mg/eACkdg910-005LufvxfAshtabula General HospitalComment on above:Performed By: #### [id number] #### [facility] [address], [place] [address]Kuanadjwpxw in HDL [Mass/Vol]88 mg/dLInvalid Interpretation CodeAshtabula General HospitalComment on above:Result Comment: '>= 60 LOW RISK' '<= 40 HIGH RISK'Performed By: #### [id number] #### [facility] [address], [place] [address]Czcilaxkpxr in LDL [Mass/Vol]107 mg/dLNormal<=129[facility] HospitalComment on above:Performed By: #### [id number] #### [facility] [address], [place] [address]Vnyyzjucqdl in VLDL [Mass/Vol]9 mg/dLNormal7-40[facility] HospitalComment on above:Performed By: #### [id number] #### [facility] [address], [place] [address]Ahkldfznnnnf [Mass/Vol]44 mg/dLNormal<=149[facility] HospitalComment on above:Performed By: #### [id number] #### [facility] [address], [place] [address]Kgmczszdjol 90-61-0250Ilyhzulbg [Mass/Vol]2.6 mg/dLHigh1.3-2.4 [facility] HospitalComment on above:Performed By: #### [id number] #### [facility] [address] [place] [address]YP & PTTon 22-14-6015OZM Coag (PPP) [Relative time]0.95 {INR} Invalid Interpretation CodeFisher Sinai Hospital Of BaltimoreComment on above:Result Comment: INR results are specifically intended to assess patients stabilized on long-term Anticoagulation therapy suggested INR???s ???Less Intensive Anticoagulation??? 2.0 ??? 3.0 Conventional Range 3.0 ??? 4.5Performed By: #### [id number] #### [facility] [address] [place], [place] [address]VZ90.6 second(s)Normal9.4-12.5FMetroHealth Parma Medical Center Comment on above:Result Comment: 15 days - [...] the same coagulation reagent and instrumentation as [facility]. Currently there are no coagulation studies available worldwide for children to 14 days, andno normal ranges.Performed By: #### [id number] #### [facility] [address] [place], [place] [address]BZL72.1 second(s)High25.1-36.5FMetroHealth Parma Medical Center Comment on above:Result Comment: Parameter 15 days [...] the same coagulation reagent and instrumentation as [facility]. Currently there are no coagulation studies available worldwide for children to 14 days, andno normal ranges. Heparin therapeutic range (represented by Anti-Factor Xa activity of 0.2 - 0.4 U/mL) corresponds to PTT of 56.6 - 109.0 sec.Performed By: #### [id number] #### [facility] [address], [place] [address]KZJ Coag (PPP) [Relative time]0.96 {INR}Invalid Interpretation [facility], IncComment on above:Result Comment: INR results are specifically intended to assess patients stabilized on long-term Anticoagulation therapy suggested INR???s ???Less Intensive Anticoagulation??? 2.0 ??? 3.0 Conventional Range 3.0 ??? 4.5Performed By: #### [id number] #### [facility] [address], [place] [address]ON65.8 second(s)Normal9.4-12.5FMetroHealth Parma Medical Center Comment on above:Result Comment: 15 days - [...] the same coagulation reagent and instrumentation as [facility]. Currently there are no coagulation studies available worldwide for children to 14 days, andno normal ranges.Performed By: #### [id number] #### [facility] [address], [place] [address]JJX15.2 second(s)High25.1-36.5FMetroHealth Parma Medical Center Comment on above:Result Comment: Parameter 15 days [...] the same coagulation reagent and instrumentation as [facility]. Currently there are no coagulation studies available worldwide for children to 14 days, andno normal ranges. Heparin therapeutic range (represented by Anti-Factor Xa activity of 0.2 - 0.4 U/mL) corresponds to PTT of 56.6 - 109.0 sec.Performed By: #### [id number] #### [facility] [address], [place] [address]Btchiflh Counton 90-97-6468Hvccbihu931.0 E9/QIwhtbc155.0-500.0 [facility] HospitalComment on above:Performed By: #### [id number] #### [facility] [address], [place] [address]Zhrmpgrnq Laboratory TestingOrdered By: Generated DomainUser on 70-93-7980Ytogyd Ab RPR Ql (S)Non-ReactiveInvalid Interpretation CodeNon ReactiveDRUMRIGHT REGIONAL [facility] SendOutsSSComment on above:Result Comment: Performed at: Lab[address] [id number] PhD Huan Gupta With T4fr Reflexon 40-03-0140VWF Qn0.50 m[IU]/LNormal0.34-5.60[facility] HospitalComment on above:Performed By: #### [id number] #### [facility] [address], [place] [address]Sicrogvaoj 28-47-1668Fjhidasq HS62.60 pg/zYGlycgbli51.90-38.40 [facility] HospitalComment on above:Result Comment: Critical Result Verified [...] Sensitivity Troponin I Instructions For Use, [place], June 2018)Performed By: #### [id number] #### [facility] [address], [place] [address]CB with Cult Rflxon 05-78-7301Pkubj (U)Light-YellowNormalYellow [facility] HospitalComment on above:Result Comment: Microscopic readings are only performed on those samples that meet specific criteria set forth by [facility].Performed By: #### [id number] #### [facility] [address], [place] [address]Xtdqhme Ql (U)1+ mg/dLAbnormalNegativeAshtabula General HospitalComment on above:Performed By: #### [id number] #### [facility] [address], [place] [address]NM BloodTraceAbnormalNegativeAshtabula General HospitalComment on above:Performed By: #### [id number] #### [facility] [address], [place] [address]HD ClarityClearNormalClearAshtabula General HospitalComment on above:Performed By: #### [id number] #### [facility] [address], [place] [address]AF Glucose4+ mg/dLAbnormalNegSouthwest General Health Center Comment on above:Performed By: #### [id number] #### [facility] [address], [place] [address]AV Leuk EstNegativeNormalNegativeAshtabula General Hospital Comment on above:Performed By: #### [id number] #### [facility] [address], [place] [address]EE NitriteNegativeNormalNegativeAshtabula General Hospital Comment on above:Performed By: #### [id number] #### [facility] [address], [place] [address]CO pH6.0Invalid Interpretation Code5.0-9.0[facility] HospitalComment on above:Performed By: #### [id number] #### [facility] [address], [place] [address]KH ProteinNegativeNormalNegSouthwest General Health Center Comment on above:Performed By: #### [id number] #### [facility] [address], [place] [address]RD Spec Grav1.023Invalid Interpretation Code1.005-1.030[facility] HospitalComment on above:Performed By: #### [id number] #### [facility] [address], [place] [address]KQ UrobilinogenNegativeNormalNegativeAshtabula General HospitalComment on above:Performed By: #### [id number] #### [facility] [address], [place] [address]Kygpczhixixb (U) [Mass/Vol]NegativeNormalNegativeAshtabula General HospitalComment on above:Performed By: #### [id number] #### [facility] [address], [place] [address]NOUQQXTBANYtliuwg By: SYSTEM SYSTEM on 44-44-8848Jbyhxkrhl Ql (U)NegativeNormalNegativemg/dLFT UA Auto SSClarity (U)Clear (04/15/25 4:58 AM)NormalClearFTM UA Auto SSColor (U)Light-Yellow 1 (04/15/25 4:58 AM)NormalYellowFT UA Auto SSComment on above:Interpretive Data: Microscopic readings are only performed on those samples that meet specific criteria set forth by [facility].Glucose Ql (U)4+ mg/dLInvalid Interpretation CodeNegativemg/dLFT UA Auto SSHemoglobin Auto test strip (U) [Mass/Vol]Trace mg/dLInvalid Interpretation CodeNegativemg/dLFT UA Auto SSKetones Auto test strip Ql (U)1+ mg/dLInvalid Interpretation Code Negativemg/dLFT UA Auto SSLeukocyte esterase Auto test strip Ql (U)Negative NormalNegativeLeu/uLFT UA Auto SSNitrite Auto test strip Ql (U)NegativeNormal Negativemg/dLFT UA Auto SSpH (U)6.0 *NA* (04/15/25 4:58 AM)Invalid Interpretation Code5.0 - 9.0[facility] UA Auto SSProtein Ql (U)NegativeNormalNegativemg/dLFT UA Auto SSSpecific gravity (U) [Rel density] 1.023 *NA* (04/15/25 4:58 AM)Invalid Interpretation Code1.005 - 1.030[facility] UA Auto SS Urobilinogen (U) [Mass/Vol]NegativeNormalNegativemg/dLDRUMRIGHT REGIONAL [facility]OSPITAL [facility] UA Auto SSURINALYSIS Ordered By: Nick Farmer on 40-53-1473VB Spec DescClean Catch (04/15/25 4:58 AM)NormalFT UA Auto SSVit B12on 00-08-5057Gjrfumnjp (Vitamin B12) [Mass/Vol]573 pg/cDIkecbt84-8928EyfkalAshtabula General HospitalComment on above: Performed By: #### [id number] #### [facility] [address], [place] [address]vDRUpo 03-48-5974qCHQ06 mL/min/1.73 m2Low>=59[facility] HospitalComment on above:Performed By: #### [id number] #### [facility] [address], [place] [address]TR Draw & Holdon 19-54-9206HX D&HSample drawn for Blood Ba NormalAshtabula General HospitalComment on above:Performed By: #### [id number] #### [facility] [address], [place] [address]UWEqu 86-62-8218Tntzk gap [Moles/Vol]15 mmol/LNormal6-16[facility] HospitalComment on above:Performed By: #### [id number] #### [facility] [address], [place] [address]RRA/Creat Ratio16 No IzcxqPoiymb24-76RarvvqAshtabula General HospitalComment on above:Performed By: #### [id number] #### [facility] [address], [place] [address]Utvmviq [Mass/Vol]9.0 mg/dLNormal8.9-11.1FMetroHealth Parma Medical CenterComment on above:Performed By: #### [id number] #### [facility] [address], [place] [address]Oaxgrwfk [Moles/Vol]103 mmol/UNplmjr175-004VhohefAshtabula General HospitalComment on above:Performed By: #### [id number] #### [facility] [address], [place] [address]RR8 [Moles/Vol]24 mmol/MSakjki87-89WskkzwAshtabula General Hospital Comment on above:Performed By: #### [id number] #### [facility] [address], [place] [address]Eehdbqfiin [Mass/Vol]1.8 mg/dLHigh0.5-1.3FMetroHealth Parma Medical CenterComment on above:Performed By: #### [id number] #### [facility] [address], [place] [address]Nqcesps [Mass/Vol]245 mg/oYYoyv04-472IzuxovAshtabula General HospitalComment on above:Performed By: #### [id number] #### [facility] [address], [place] [address]Wjodnsrui [Moles/Vol]5.0 mmol/LNormal3.5-5.3FMetroHealth Parma Medical CenterComment on above:Performed By: #### [id number] #### [facility] [address], [place] [address]Xibhxz [Moles/Vol]137 mmol/FWdjlfa617-066HbpctzAshtabula General HospitalComment on above:Performed By: #### [id number] #### [facility] [address], [place] [address]Nliu nitrogen [Mass/Vol]28 mg/dLHigh5-21[facility] HospitalComment on above:Performed By: #### [id number] #### [facility] [address], [place] [address]IPMzi 03-53-5582Rbunbilbkco peptide B (Bld) [Mass/Vol]512 pg/mL High5-80[facility] HospitalComment on above:Performed By: #### [id number] #### [facility] [address], [place] [address]ERJ w/ Auto Diffon 86-60-3433Jazlzjmc Absolute0.1 E9/LNormal 0.0-0.2FMetroHealth Parma Medical CenterComment on above:Performed By: #### [id number] #### [facility] [address], [place] [address]Lrmhjvens/100 WBC (Bld)0.8 %Normal0.0-2.0[facility] HospitalComment on above:Performed By: #### [id number] #### [facility] [address], [place] [address]Cnv Absolute0.1 E9/LNormal0.0-0.5FMetroHealth Parma Medical Center Comment on above:Performed By: #### [id number] #### [facility] [address], [place] [address]Xtuczvpdsnw/100 WBC (Bld)1.5 %Normal0.0-8.0[facility] HospitalComment on above:Performed By: #### [id number] #### [facility] [address] [place] [address]Velnzlzqmri distribution width (RBC) [Ratio]19.7 %High10.9-14.2 [facility] HospitalComment on above:Performed By: #### [id number] #### [facility] [address] [place] [address]Ovnaiovjtl (Bld) [Volume fraction]33.7 %Low37.7-49.0[facility] HospitalComment on above:Performed By: #### [id number] #### [facility] [address] [place] [address]Gaktgbvetf (Bld) [Mass/Vol]11.0 g/dLLow13.5-17.5FMetroHealth Parma Medical CenterComment on above:Performed By: #### [id number] #### [facility] [address] [place] [address]Kktue Absolute0.6 E9/LLow1.0-4.0[facility] Comment on above:Performed By: #### [id number] #### [facility] [address] [place] [address]Sofwquavbok/100 WBC (Bld)7.8 %Low14.0-50.0[facility] HospitalComment on above:Performed By: #### [id number] #### [facility] [address] [place] [address]EJV (RBC) [Entitic mass]27.5 twLtrwyp61.0-34.0[facility] HospitalComment on above:Performed By: #### [id number] #### [facility] [address] [place] [address]CNYI (RBC) [Mass/Vol]32.7 g/eHWcmcgw43.4-36.0[facility] HospitalComment on above:Performed By: #### [id number] #### [facility] [address], [place] [address]ROM (RBC) [Entitic vol]84.0 bDKxdqlp59.0-100.0[facility] HospitalComment on above:Performed By: #### [id number] #### [facility] [address], [place] [address]Cdrz Absolute0.8 E9/LNormal0.2-1.0[facility] Comment on above:Performed By: #### [id number] #### [facility] [address], [place] [address]Uycihiieu/100 WBC (Bld)9.9 %Normal4.0-14.0[facility] HospitalComment on above:Performed By: #### [id number] #### [facility] [address], [place] [address]Ehbbek Absolute6.5 E9/LNormal2.0-7.5FMetroHealth Parma Medical Center Comment on above:Performed By: #### [id number] #### [facility] [address], [place] [address]Yuzkrs Auto80.0 %High36.0-75.0[facility] Comment on above:Performed By: #### [id number] #### [facility] [address], [place] [address]Ozjqhxvk513.0 E9/ZWhtiou530.0-500.0[facility] Comment on above:Performed By: #### [id number] #### [facility] [address], [place] [address]Qecvicfo mean volume (Bld) [Entitic vol]9.3 fLNormal6.4-10.8 [facility] HospitalComment on above:Performed By: #### [id number] #### [facility] [address], [place] [address]HPV6.0 E12/LLow4.3-5.9Fisher Nando Medical CenterComment on above:Performed By: #### [id number] #### [facility] [address], [place] [address]GTH5.1 E9/LNormal4.0-11.0Fisher [facility] Hospital Of BaltimoreComment on above:Result Comment: Peripheral smear review performed.Performed By: #### [id number] #### [facility] [address], [place] [address]NOCMEQVIIOobunru By: SYSTEM SYSTEM on 81-00-4212Dtqkmpz [Moles/Vol]1.5 mmol/LNormal0.5 - 2.2 mmol/LRemisol ChemProcalcitonin0.06 ng/mL [...] to 24 hours.CHEMISTRYOrdered By: Summer Mcguire on 52-15-5530Vpfxvzkwakt peptide B (Bld) [Mass/Vol]512 pg/mLHigh5 - 80 pg/mLDRUMRIGHT [facility] HemeManSSCHEMISTRYOrdered By: Samir Naidu on 41-24-4358Narpauuqp [Mass/Vol]2.2 mg/dLNormal1.3 - 2.4 mg/dLRemisol ChemTroponin HS18.30 pg/mKJojlxh40.90 - 38.40 pg/mLRemisol ChemComment on above:Interpretive Data: The 95% CI (Confidence Interval) PPV (Positive Predictive Value) for myocardial infarction in females is 38 pg/mL, in males 51 pg/mL. The results should be used in conjunction with clinical conditions of myocardial infarction. (Access High Sensitivity Troponin I Instructions For Use, [place], June 2018)COAGULATIONOrdered By: Summer Mcguire on 90-12-6491bWUZ Coag (PPP) [Time]33.3 tEuntrg36.1 - 36.5 second(s)[facility] Auto CoagComment on above: Interpretive Data: Parameter [...] the same coagulation reagent and instrumentation as [facility]. Currently there are no coagulation studies available worldwide for children to 14 days, andno normal ranges. Heparin therapeutic range (represented by Anti-Factor Xa activity of 0.2 - 0.4 U/mL) corresponds to PTT of 56.6 - 109.0 sec.INR Coag (PPP) [Relative time]0.98 {INR}Invalid Interpretation CodeDRUMRIGHT REGIONAL HOSPITAL [facility] Auto CoagComment on above:Interpretive Data: INR results are specifically intended to assess patients stabilized on long-term Anticoagulation therapy suggested INR s Less Intensive Anticoagulation 2.0 3.0 Conventional Range 3.0 4.5PT Coag (PPP) [Time]11.0 sNormal9.4 - 12.5 second(s) [facility] Auto CoagComment on above:Interpretive Data: 15 days [...] the same coagulation reagent and instrumentation as [facility]. Currently there are no coagulation studies available worldwide for children to 14 days, andno normal ranges.CT Chest w/o Contraston 67-02-4642YT Chest w/o ContrastExam Date/Time: 04/14/2025 19:05 EDT [...] Rodriguez DO Transcribed by: MARII Technologist: Rachael [facility] BaltimoreCT Head or Brain w/o Contraston 43-17-8735KA Head or Brain w/o ContrastExam Date/Time: 04/14/2025 [...] Yoel Rodriguez DO Transcribed by: MARII Technologist: [facility]Un[facility] Head 29-55-1448FOY HeadExam Date/Time: 04/14/2025 17:33 EDT Reason for Exam: NEURO DEFICIT, ACUTE, STROKE SUSPECTED;Other (please specify) Report Please see CTA neck report. Ordering Provider: Rivas Griggs FINAL REPORT Dictated: 04/14/2025 5:55 pm Yoel Rodriguez DO Signed (Electronic Signature): 04/14/2025 5:55 pm Signed by: Yoel Rodriguez DO Transcribed by: MARII Technologist: [facility]adOur [facility] Neck 33-63-5421RCW NeckExam Date/Time: 04/14/2025 17:33 EDT Reason for [...] obtained from the thoracic inlet through the wrangell of [place] after administration of intravenous contrast. [...] Yoel Rodriguez DO Transcribed by: MARII Technologist: ZiyadAshtabula General HospitalCapillary Glucose POCon 87-53-8586Nataxmo [Mass/Vol]261 mg/eWZuno55-21UoycmqAshtabula General HospitalComment on above:Performed By: #### [id number] #### [facility] [address], [place] [address]QG Clinical Summaryon 51-52-0390CX Clinical SummaryED Clinical Summary [address] [address] ED Clinical Summary Person Information Name: NADIR BETH [place] Age: 85 Years : 1940 Sex: Male Language: Comoran PCP: Van Youssef MD Marital Status: Visit Id: Visit Reason: Altered mental status; Headache; Potential stroke; stroke Speciality: Acuity: 2 Enc Type: Inpatient Med Service: Medical Arrival: 04/14/2025 16:53:36 Discharge: LOS: 000 03:59 Checkin: 04/14/2025 16:53:36 Checkout: 04/14/2025 20:52:18 Dispo Type: Admitted as IP to this [facility] EVENTS: Event Name Event Status Request Date/Time [...] 19:37:19 Pending Labs Request 04/14/2025 19:50:50 ADDRESS: [address] [place] [id number] PHYS DOC NOTES: Addendum by Oleg Doll DO on April 14, 2025 19:50:02 EDT MEDICAL INFORMATION: Prescriptions Given: Medications to Continue with No Changes Other Medications acetaminophen-hydrocodone ([place] 325 mg-5 mg oral tablet) 1 Tablets [...] (in the morn (more content not included)...NormalFisher Bardolph Medical CenterED Note-Physicianon 81-66-8865RP Note-PhysicianED Note-Physician Basic Information Time Seen: Rivas Griggs M.D. 04/14/2025 17:02 Chief Complaint pt presents via [facility] d/t ams. family states pt complains [...] and Complexity of Problems Differential Diagnosis: [] [facility] Data External documents reviewed: [] My [...] decision-making, intensive cardiac and/ (more content not included)...[facility] City HospitalComment on above:Result Comment: Electronically Signed By: Oleg Doll DO.mary\Date and Time Signed: 04/14/25 19:50 EDTED Patient Education Note on 30-77-8484EC Patient Education NoteED Patient Education NoteNormMercy Health Fairfield Hospital CenterED Patient Summaryon 08-96-5931ES Patient SummaryED Patient Summary [place] [id number] Patient Discharge Instructions Person Information Name: NADIR BETH Age: 85 Years Arrival Date: 04/14/2025 16:53:36 Discharge Diagnosis: 1:CVA (cerebrovascular accident); 2:Congestive heart failure; 3:Chronic kidneydisease; 4:Hypertensive urgency; Pericardial effusion; Pleural effusion Primary Care Physician: Van Youssef MD Provider Information Primary Provider: Rivas Griggs M.D. Advanced Bilingual Operator:None The exam and treatment you received in the Emergency Department were for an urgent problem and are not intended as complete care. It is important that you follow up with a doctor, nurse practitioner,or physician???s senior court office assistant for ongoing care. If your symptoms [...] opioids can be used to help relieve irtnljvp-cc-lmztyk pain and are often prescribed following a [...] be struggling with addiction, tell your health personal care aide and askfor guidance or call [facility] (more content not included)... NormalAshtabula General HospitalLactic Acidon 75-80-6392Atzbsx Acid Lvl1.5 mmol/LNormal0.5-2.2FMetroHealth Parma Medical CenterComment on above:Performed By: #### [id number] #### [facility] [address], [place] [address]Sotyckdnwyd 40-17-1773Llauswwkz [Mass/Vol]2.2 mg/dLNormal 1.3-2.4FMetroHealth Parma Medical CenterComment on above:Performed By: #### [id number] #### [facility] [address], [place] [address]Vf Panel InformationOrdered By: ANGPROCESSSERVER MICROBIOLOGY on 67-99-0105Ekmyk Culture CharcoalNo growth at 4 days. Final to follow at 7 days.[facility] HospitalBlood Culture CharcoalNo growth at 4 days. Final to follow at 7 days.[facility] HospitalPT & PTTon 43-29-6610QZT Coag (PPP) [Relative time]0.98 {INR}Invalid Interpretation [facility], IncComment on above:Result Comment: INR results are specifically intended to assess patients stabilized on long-term Anticoagulation therapy suggested INR???s ???Less Intensive Anticoagulation??? 2.0 ??? 3.0 Conventional Range 3.0 ??? 4.5Performed By: #### [id number] #### [facility] [address], [place] [address]PM72.0 second(s)Normal9.4-12.5FMetroHealth Parma Medical Center Comment on above:Result Comment: 15 days - [...] the same coagulation reagent and instrumentation as [facility]. Currently there are no coagulation studies available worldwide for children to 14 days, andno normal ranges.Performed By: #### [id number] #### [facility] [address], [place] [address]RAN32.3 second(s)Ljapmd74.1-36.5FMetroHealth Parma Medical Center Comment on above:Result Comment: Parameter 15 days [...] the same coagulation reagent and instrumentation as [facility]. Currently there are no coagulation studies available worldwide for children to 14 days, andno normal ranges. Heparin therapeutic range (represented by Anti-Factor Xa activity of 0.2 - 0.4 U/mL) corresponds to PTT of 56.6 - 109.0 sec.Performed By: #### [id number] #### [facility] [address], [place] [address]Ork-Iupygft Noteon 63-91-3451Ryo-Arrival NotePre-Arrival Note Pre-Arrival Summary Name: opal Current Date: 04/14/2025 16:54:02 EDT Gender: Male Date of : Age: 85 Pre-Arrival Type: EMS ETA: 04/14/2025 17:17:00 EDT Primary Care Physician: Presenting Problem: Pre-Arrival User: Abdoul Mcmillan Referring Source: Location: [place] Completion Date/Time: 04/14/2025 16:47:00 [facility] Emergency Department Pre-Hospital Report Form Vital Signs: Pre-Hospital Report: Treatment in Route: Response to Treatment: Misc. Issues:NormalAshtabula General HospitalProcalcitoninon 04-14-2025 Procalcitonin.06 ng/mLNormal.00-.50[facility] HospitalComment on above: Result Comment: <0.5 ng/mL [...] within 6 to 24 hours.Performed By: #### [id number] #### [facility] [address], [place] [address]Qraezken 0 Hr.on 10-52-0174Dmymhyaj HS18.30 pg/mLNormal 15.90-38.40[facility] HospitalComment on above:Result Comment: The 95% CI (Confidence Interval) PPV (Positive Predictive Value) for myocardial infa rction in females is 38 pg/mL, in males 51 pg/mL. The results should be used in conjunction with clinical conditions of myocardial infarction. (Access High Sensitivity Troponin I Instructions For Use, Roxane Blanca, June 2018)Performed By: #### [id number] #### [facility] [address], [place] [address]FG with Cult Rflxon 13-16-7887TN Spec DescClean CatchNormal [facility] HospitalComment on above:Performed By: #### [id number] #### [facility] [address], [place] [address]UR Chest Single Viewon 13-73-2706GV Chest Single ViewExam Date/Time: 04/14/2025 17:32 EDT [...] Yoel Rodriguez DO Transcribed by: MARII Technologist: CNILAormalAshtabula General HospitaleGFRon 94-77-0451oSJV31 mL/min/1.73 m2Low>=59As[facility] HospitalComment on above:Performed By: #### [id number] #### [facility] [address], [place] [address]Ioktxd Visiton 71-23-2367Hglhpn-up [id number] Nadir Beth 1940 M Date Provider Department Center 03/12/2025 CLARIBEL VILLALOBOS CARD [facility] Family History Problem Relation Age of Onset Coronary artery disease Father Family Status - Relation Status Age at Father Level of Service:55863 [place] OFFICE/OUTPATIENT ESTABLISHED HIGH MDM 40 [facility]HPon 37-20-8021WZ Attestation signed by Albaro Faulkner MD at 03/01/2025 6:06 PM I personally saw and examined the patient on the same date of service as resident/fellow Dr chilel. I discussed the findings and therapeutic plan with the resident/fellow Dr chilel. I agree with the documentation, except for any edits/updates below. Teaching Physician's Revisions: None Albaro Faulkner MD, [facility] History Of Present Illness Nadir Beth is a 85 y.o. male presenting with aortic stoneosis for MARK. Past Medical History He has a past medical history of Atrial fibrillation ([facility]), CHF (congestive heart failure) ([facility]), Chronic kidney disease, COPD (chronic obstructive pulmonary disease) ([facility]), Coronary artery disease, Diabetes mellitus ([facility]), Heart valve disease, [...] Father Allergies Iodinated contrast media, Nitroglycerin, and Xqjqflb-jmj-iro reductase inhibitors Medications (Not in a hospital [...] Addendum: [facility] Heart Station [address] [place], [place] [phone] (fax) Transesophageal Echocardiogram-[facility] Name: NADIR BETH Study Date: 08/31/2023 02:31 PM B/P: 190 mmHg/86 mmHg HR: 92 bpm Date of : 1940 Location: [facility] Height: 71 in. Age: 83 year(s) Patient Room: Weight: 210 lb. Gender: Male Patient Status: OutPt BSA: 2.15 m2 Indication: Aortic Valve Stenosis Examination: MARK/Limited Doppler/CFI Image Quality: Excellent Patient Consent: Informed, written consent was obtained for the procedure Exam Location: A MARK was performed in the [place] without complications Anesthesia Pharyngeal anesthesia with viscous Lidocaine Conclusions Left Ventricle: Global left ventricular systolic function is hyperdynamic. EF range is estimated at 65 % -70 %. No regional wall motion abnormality. Right Ventricle: The right ventricle appears normal in size. Normal right kari (more content not included)...NormalUnClermont County HospitalNURSNOTEon 82-83-0788PBGVQEPJHxkdytw swallow study completed and passed. RN educated [...] wheeled off of unit with all of belongings.NormalUnClermont County HospitalTelephoneon [id number] Nadir Beth 1940 M Date Provider Department Center 02/21/2025 [facility] VASC LAB AL HeartVAS Family History Problem Relation Age of Onset Coronary artery disease Father Family Status - Relation Status Age at FatherNormalUniversCleveland Clinic Avon HospitalFollow-Upon 09-59-4594Pcwkxs-Up [id number] Nadir Beth 1940 M Date Provider Department Center 01/03/2025 [facility] NEPHRO Comprehensiv Family History Problem Relation Age of Onset Coronary artery disease Father Family Status - Relation Status Age at Father Level of Service:91646 [place] OFFICE/OUTPATIENT ESTABLISHED MOD MDM 30 MIN (GC) Reason for Visit and Comments: Follow-up [366391][facility]Office [facility]iton 14-75-9103Mmzjrh-up [id number] Nadir Beth 1940 M Date Provider Department Center 12/14/2024 ParrisCLARIBEL CISNEROS [facility] Alberto Beckett Family History Problem Relation Age of Onset Coronary artery disease Father Family Status - Relation Status Age at Father Level of Service:52674 [place] OFFICE/OUTPATIENT ESTABLISHED MOD MDM [address] [facility]'s Medical CenterAmbulatory Visit Summaryon 12-04-2024 Ambulatory Visit SummaryAmbulatory Visit [...] MD This Is Your Medications List acetaminophen-hydrocodone ([place] 325 mg-5 mg oral tablet) ciprofloxacin (Cipro [...] LU OLMEDO PA-C Where: [facility] [address] [place] [address]- You Need to Schedule the Following Appointments Follow Up with ADRIAN GUSTAFSON, ADAN CHO When: In 6 months Comments: Can see DIAMANTE, w/PVR Where: Medications What How Much When Why Instructions Unchanged acetaminophen-hydrocodone ([place] 325 mg-5 mg oral tablet) 1 Tablets [...] questions or concerns Uncha (more content not included)...[facility] HospitalUrology Office/Clinic Noteon 86-68-1754Vlltjhe Office/Clinic NoteUrology Office/Clinic Note Chief Complaint 6-8 [...] out of his penis. Pt presented to [facility] 10/28/24 due to clot retention. Seen [...] 7. 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) Pt presented to [facility] 08/06/24 with redness on the shaft [...] penis. -Cont symptomatic monitoring 8. Anticoagulated (Z79.01: FPC (current) use of anticoagulants) Taking Eliquis, has restarted since UroLift. Hx of cardioversion. Increased risk for bleeding. Elevated r (more content not included)...[facility] City HospitalComment on above:Result Comment: Electronically Signed By: ADRIAN GUSTAFSON, MARQUIS\.br\Date and Time Signed: 12/04/24 09:21 EST\.br\Electronically Co-Signed By: Deepthi Kevin\.br\Date and Time Co- Signed: 12/04/24 09:11 ESTAmbulatory Visit Summaryon 96-10-3770Ddgnphxvim Visit SummaryAmbulatory Visit Summary NADIR BETH :1940 Visit Date:11/06/2024 Ambulatory Visit Instructions Your Care Team Attending Physician - SAMANTHA GUSTAFSON, Mejia Zimmer Primary Care Physician - Van Youssef MD This Is Your Medications List NIFEdipine acetaminophen-hydrocodone ([place] 325 mg-5 mg oral tablet) acyclovir apixaban [...] MARQUIS LOUISE MD Where: [facility] [place] [facility] [address], [address] [place] [address]- Medications What How Much When Why Instructions Unchanged acetaminophen-hydrocodone ([place] 325 mg-5 mg oral tablet) 1 Tablets [...] receive a survey v (more content not included)...[facility] HospitalAmbulatory Visit Summaryon 65-73-9873Fcheaqxqcu Visit Summary Ambulatory Visit Summary ZOEYNADIR SULLIVAN Joy :1940 Visit Date:11/02/2024 Ambulatory Visit Instructions Your Diagnosis BPH with urinary obstruction Gross hematuria Incomplete bladder emptying OAB (overactive bladder) Acquired buried penis Balanitis Anticoagulated Your Care Team Attending Physician - MARQUIS LOUISE MD Primary Care Physician - Van Youssef MD This Is Your Medications List acetaminophen-hydrocodone ([place] 325 mg-5 mg oral tablet) ciprofloxacin (Cipro [...] AM EST With: Where: [facility] [address] [place] [address] [place] [address]- Wednesday 8:40 AM EST With: MARQUIS LOUISE MD Where: [facility] [address], [address] [place] [address]- You Need to Schedule the Following Appointments Follow Up with MARQUIS LOUISE MD, URL When: Where: Medications What How Much When Why Instructions Unchanged acetaminophen-hydrocodone ([place] 325 mg-5 mg oral tablet) 1 Tablets [...] if questions or co (more content not included)...NormalAshtabula General HospitalUrology Office/Clinic Noteon 67-69-8172Woqclis Office/Clinic Note Urology Office/Clinic Note Chief Complaint er f/u HPI Staff 84 year old male here for [facility] F/U, difficulty urinating. Bladder scan showed [...] with voice recognition artificial intelligence software, specifically [employer], [employer] and or [employer]. Substitutions may have occurred due to the [...] out of his penis. Pt presented to [facility] 10/28/24 due to clot retention. Seen [...] 6. 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) Pt presented to [facility] 08/06/24 with redness on the shaft [...] penis. -Cont symptomatic monitoring 7. Anticoagulated (Z79.01: rn long term care (current) use of anticoagulants) Taking Eliquis, has restarted since UroLift. Hx of cardioversion. Increased risk for bleeding. Elevated risk for periop complications. Patient underwent a UroLift procedure approximately a week and a half ago. Unfortunately, he developed gross hematuria with clot retention that required hand irrigation with a three-way Palomares catheter. He presents today for an (more content not included)...[facility] City HospitalComment on above:Result Comment: Electronically Signed By: MARQUIS LOUISE MD\.br\Date and Time Signed: 11/02/24 08:40 EST\.br\Electronically Co-Signed By: Roxy Gatica\.br\Date and Time Co-Signed: 11/02/24 08:27 EST\.br\Electronically Co-Signed By: Roxy Gatica\.br\Date and Time Co-Signed:11/02/24 08:29 EST Ambulatory Visit Summaryon 41-25-3113Umtkadhrxw Visit SummaryAmbulatory Visit Summary NADIR BETH :1940 Visit Date:10/25/2024 Ambulatory Visit Instructions Your Care Team Attending Physician - MARQUIS LOUISE MD Primary Care Physician - Van Youssef MD Referring Physician - MARQUIS LOUISE MD This Is Your Medications List NIFEdipine acetaminophen-hydrocodone ([place] 325 mg-5 mg oral tablet) acyclovir apixaban [...] MARQUIS LOUISE MD Where: [facility] [address], [address] [place] [address]- Medications What How Much When Why Instructions Unchanged acetaminophen-hydrocodone ([place] 325 mg-5 mg oral tablet) 1 Tablets [...] Incomplete bladder emptying Naus (more content not included)...[facility] HospitalInpatient Patient Summaryon 72-75-9356Ogneicpxh Patient SummaryInpatient Patient Summary [address] [address] Clinical Summary Person Information Name: NADIR BETH Age: 84 Years : 1940 Sex: Male PCP: Van Youssef MD Marital Status: Race: White Ethnicity: Non- or Language: Comoran Visit Id: Visit Reason: BPH WITH URINARY OBSTRUCTION, INCOMPLETE BLADDER EMPTYING Speciality: Acuity: Enc Type: Outpatient Med Service: Surgery Arrival: 10/23/2024 13:48:15 Discharge: Dispo Type: Address: [address] [place] [phone] Provider Notes: Diagnosis: Problems Active BPH with [...] Documented This Visit Final Med List: acetaminophen-hydrocodone ([place] 325 mg-5 mg oral tablet) 1 Tablets [...] Follow up: Patient Education Information: Benign Prostatic HyperplasiaZanesville City HospitalMain OR Intraoperative Recordon 32-99-2411Vhrf OR Intraoperative RecordMain OR Intraoperative Record IntraOp Document Type FTURO Summary Primary Physician: MARQUIS LOUISE MD Finalized Date/Time: 10/23/24 15:03:19 Pt. Name: KIRITNADIRO.B./Sex: 1940 Male Med Rec #: [id number] Physician: MARQUIS LOUISE MD Financial #: [id number] Pt. Type: O Room/Bed: / Admit/Disch: 10/23/24 [...] 3 Case Attendee ADRIAN GUSTAFSON, Oliva Goel [employer]OM[employer]AILER, Ana CHO Role Performed Surgeon - Primary Trace Clerk - Primary Scrub - Primary Time In [...] Implant Implant Identification Description UROLIFT Lot Number [id number] [employer]or [employer] UROLIFT Catalog ???# UL2-C Expiration Date 11/30/25 [...] 10/23/24 15:03 Oliva Goel (more content not included)...[facility] HospitalMain OR Preoperative Recordon 61-89-0522Zryn OR Preoperative RecordMain OR Preoperative Record Holding Area Document Type FTURO Summary Primary Physician: MARQUIS LOUISE MD Finalized Date/Time: 10/23/24 14:17:30 Pt. Name: NADIR BETH/Sex: 1940 Male Med Rec #: [id number] Physician: MARQUIS LOUISE MD Financial #: [id number] Pt. Type: O Room/Bed: / Admit/Disch: 10/23/24 [...] Complaints of Pain: No Skin Integrity Intact, [place], Warm, & Dry Vitals - EU Blood Pressure 152/78 Pulse 84 bpm Respirations 18 br/min SPO2 90 % Additional None RN Reviewed Yes Specimens Collected Last Modified By: Oliva Goel 10/23/24 14:17:29 Finalized By: Oliva Goel Document Signatures Signed By: Preeti Kaur LPN 10/23/24 14:05 Oliva Goel 10/23/24 14:17NoSumma Health Barberton CampusOperative Reporton 28-90-9927Yprmfhsde ReportOperative Report Patient: NADIR BETH Age: 84 [...] urethral meatus. We then placed the 20 Indian cystoscope into the bladder. Bilobar hyperplasia was [...] able to easily navigate with a 20 Indian scope. Scope was then removed and an 18 Indian Palomares catheter was placed with return of light pink urine and no clots noted. This concluded the procedure. Patient was then transferred to PACU in stable condition. PLAN: Patient will follow-up in 2 days for Palomares catheter removal. 10 cc in the balloon Follow-up in 6 to 8 weeks with IPSS at that timeZanesville City HospitalComment on above:Result Comment: Electronically Signed By: MARQUIS LOUISE MD\.br\Date and Time Signed: 10/23/24 15:06 ESTOutpatient Surgery Discharge Instructionon 48-60-1500Qqqzzdjkir Surgery Discharge Instruction Outpatient Surgery Discharge Instruction [place] [id number] Patient Discharge Instructions PERSON INFORMATION Name: NADIR [...] a small amount of (more content not included)...[facility] HospitalAmbulatory Visit Summaryon 47-83-9686Tlpeotuwgy Visit SummaryAmbulatory Visit Summary NADIR BETH :1940 [...] stools Patient Survey Yo (more content not included)...[facility] HospitalAmbulatory Visit SummaryAmbulatory Visit Summary NADIR BETH :1940 [...] choosing us for (more content not included)... [facility] HospitalUrology Office/Clinic Noteon 48-01-3046Xforfkg Office/Clinic NoteUrology Office/Clinic Note Chief Complaint 1-2 [...] with voice recognition artificial intelligence software, specifically [employer], [employer] and or [employer]. Substitutions may have occurred due to the [...] -Cipro 500mg bid start the day prior, [place] 325-5mg #2 q6hrs as needed for pain, [...] 3. 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) Pt presented to [facility] 08/06/24 with redness on the shaft [...] and Lasix. -Dm control 6. Anticoagulated (Z79.01: FPC (current) use of anticoagulants) Taking Eliquis. Hx of cardioversion. Elevated risk for periop complications. Based on patient's age, multiple medical comorbidities and his prostate size we discussed extensively that he will benefit most likely from a UroLift procedure. He is amenable to (more content not included)...[facility] City HospitalComment on above:Result Comment: Electronically Signed By: MARQUSI LOUISE MD\.br\Date and Time Signed: 10/02/24 11:43 EST\.br\Electronically Co- Signed By: Roxy Gatica\.br\Date and Time Co-Signed: 10/02/24 11:21 EST\.br\Electronically Co-Signed By: Roxy Gatica\.br\Date and Time Co-Signed:10/02/24 11:22 EST\.br\Electronically Co-Signed By: Roxy Gatica\Date and Time Co-Signed: 10/02/24 11:23 ESTInpatient Patient Summaryon 22-43-8055Iwpclotjt Patient SummaryInpatient Patient Summary [address] [address] Clinical Summary Person Information Name: NADIR BETH Age: 84 Years : 1940 Sex: Male PCP: Van Youssef MD Marital Status: Race: White Ethnicity: Non- or Language: Comoran Visit Id: Visit Reason: ENLARGED PROSTATE WITH URINARY OBSTRUCTION, INCOMPLETE BLADDER EMPTYING Speciality: Acuity: Enc Type: Outpatient Med Service: Surgery Arrival: 09/25/2024 11:42:27 Discharge: Dispo Type: Address: [address] [place] [address] [phone] Provider Notes: Diagnosis: Problems Active BPH with [...] With: Address: When: MARQUIS ROANEELABERNABE [address] [address] [phone] Business (1) Comments: Follow-up in the office in 2 weeks to discuss next plan With: Address: When: [place] [phone] Business (1) Patient Education Information: Benign Prostatic HyperplasiaZanesville City HospitalMain OR Intraoperative Recordon 90-42-9616Zgmy OR Intraoperative RecordMain OR Intraoperative Record IntraOp Document Type FTURO Summary Primary Physician: MARQUIS LOUIES MD Finalized Date/Time: 09/25/24 13:23:58 Pt. Name: BUNNY BETHCONNIE BorjaO.B./Sex: 1940 Male Med Rec #: [id number] Physician: MARQUIS LOUISE MD Financial #: [id number] Pt. Type: O Room/Bed: / Admit/Disch: 09/25/24 [...] C KWABENA Role Performed Surgeon - Primary Trace Clerk - Primary Scrub - Primary Time In [...] Goel 09/25/24 13:23 Oliva Goel 09/25/24 13:23Normal [facility] HospitalMain OR Preoperative Recordon 21-18-3451Ebuu OR Preoperative RecordMain OR Preoperative Record Holding Area Document Type FTURO Summary Primary Physician: MARQUIS LOUISE MD Finalized Date/Time: 09/25/24 13:04:51 Pt. Name: ZOEYIRANADIR STEPHEN/Sex: 1940 Male Med Rec #: [id number] Physician: MARQUIS LOUISE MD Financial #: [id number] Pt. Type: O Room/Bed: / Admit/Disch: 09/25/24 [...] Complaints of Pain: No Skin Integrity Intact, [place], Warm, & Dry Vitals - EU Blood Pressure Pulse Respirations SPO2 Additional None RN Reviewed Yes Specimens Collected Last Modified By: Oliva Goel 09/25/24 13:04:50 Finalized By: Oliva Goel Document Signatures Signed By: Preeti Kaur LPN 09/25/24 12:49 Oliva Goel 09/25/24 13:04NoSumma Health Barberton CampusOperative Reporton 63-09-9228Dwngqdyci ReportOperative Report Patient: NADIR BETH Age: 84 [...] discuss next steps Impression and Plan Counseled: Family.[facility] HospitalComment on above:Result Comment: Electronically Signed By: MARQUIS LOUISE MD\.br\Date and Time Signed: 09/25/24 13:27 ESTOutpatient Surgery Discharge Instructionon 09-25-2024 Outpatient Surgery Discharge InstructionOutpatient Surgery Discharge Instruction [place] [id number] Patient Discharge Instructions PERSON INFORMATION Name: NADIR [...] Address: When: MARQUIS LOUISE [address] [place] [address] [phone] [employer] (1) Comments: Follow-up in the office in 2 weeks to discuss next plan With: Address: When: MARQUIS LOUISE [address] [place] [address] [phone] [employer] (1) Comment: PATIENT EDUCATION INFORMATION Instructions: Benign [...] procedure uses radio frequen (more content not included)...[facility] HospitalNo Panel Informationon 37-95-7413FBLF HealthcareAmbulatory Visit Summaryon 75-59-4651Jpyitnujhp Visit SummaryAmbulatory Visit Summary NADIR BETH :1940 [...] psyllium (Metamucil 525 mg (more content not included)...[facility] HospitalUrology Office/Clinic Noteon 54-01-3509Iajmvbb Office/Clinic NoteUrology Office/Clinic Note Chief Complaint follow up to [facility] HPI Staff 84 year old male new patient follow up to [facility] 08/06/24 presented due to redness on the [...] 1. 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) Pt presented to [facility] 08/06/24 with redness on the shaft [...] bladder and urinary channel, (more content not included)...[facility] HospitalComment on above:Result Comment: Electronically Signed By: MARQUIS LOUISE MD\.br\Date and Time Signed: 08/08/24 11:05 EDT\.br\Electronically Co-Signed By: Roxy Gatica\.br\Date and Time Co- Signed: 08/08/24 10:46 EDT\.br\Electronically Co-Signed By: Roxy Gatica\.br\Date and Time Co-Signed:08/08/24 10:53 EDTMICRO OTHER TESTSOrdered By: Francisco Bolanos on 81-40-0062Jlfek WBC LactoferrinNegative (04/15/23 7:00 AM)NormalNegativeFTMC Man SeroCHEMISTRYOrdered By: SYSTEM SYSTEM on 01-59-6621Fywqozh [Mass/Vol]3.8 g/dLNormal3.3 - 5.0 gm/dLFTMC Remisol Albumin/Globulin [Mass ratio]1.4 {ratio}Normal1.1 - 2.2FTMC RemisolALP [Catalytic activity/Vol]61 [iU]/xGkicwt98 - 98 Int._Unit/LFTMC RemisolALT No additional P-5'-P [Catalytic activity/Vol]16 [iU]/dNormal6 - 46 Int._Unit/LFTMC RemisolAnion gap [Moles/Vol]13 mmol/LNormal6 - 16 mEq/LFTMC RemisolAST [Catalytic activity/Vol]18 [iU]/dNormal5 - 43 Int._Unit/LFTMC RemisolBilirubin [Mass/Vol]0.5 mg/dLNormal0.0 - 1.1 mg/dLFTMC RemisolCalcium [Mass/Vol]8.8 mg/dL Low8.9 - 11.1 mg/dLFTMC RemisolChloride [Moles/Vol]104 mmol/LDdzfnd393 - 111 mmol/LFTMC RemisolCO2 [Moles/Vol]28 mmol/ZQjkgeo76 - 31 mmol/LFTMC Remisol Creatinine [Mass/Vol]1.8 mg/dLHigh0.5 - 1.3 mg/dLFTMC RemisolGFR/1.73 sq M.predicted among non-blacks MDRD (S/P/Bld) [Vol rate/Area]37 mL/min/1.73 m2Low >=59mL/min/1.73 m2FTMC Chem SGlobulin (S) [Mass/Vol]2.8 g/dLNormal1.4 - 4.0 gm/dLFTMC RemisolGlucose [Mass/Vol]111 mg/fYDnbyxt52 - 199 mg/dLFTMC Remisol Potassium [Moles/Vol]4.1 mmol/LNormal3.5 - 5.3 mmol/LFTMC RemisolProtein [Mass/Vol]6.6 g/dLNormal6.0 - 7.8 gm/dLFTMC RemisolSodium [Moles/Vol]141 mmol/L Uconre635 - 145 mmol/LFTMC RemisolUrea nitrogen [Mass/Vol]24 mg/dLHigh5 - 21 mg/dLFTMC RemisolUrea nitrogen/Creatinine [Mass ratio]13 mg/ukOrmqoj34 - 20FTMC RemisolHEMATOLOGYOrdered By: SYSTEM SYSTEM on 86-06-2283Fgpyqmrwj/100 WBC (Bld) 0.9 %Normal0.0 - 2.0 %FTMC [...] - 1.0 E9/LFTMC HemeAutoSSNeutrophils/100 WBC (Bld) 68.5 %Unsfln23.0 - 75.0 %FTMC HemeAutoSSNeutrophils/Leukocytes Auto (Bld) [Pure # fraction]4.6 E9/LNormal2.0 - 7.5 E9/LFTMC HemeAutoSSHEMATOLOGYOrdered By: Gauri Scott on 49-78-0216Yppidwmmbcm distribution width (RBC) [Ratio]14.7 % High10.9 - 14.2 %FTMC HemeAutoSSHematocrit (Bld) [Volume fraction]40.3 %Normal 37.7 - 49.0 %[facility] HemeAutoSSHemoglobin (Bld) [Mass/Vol]13.7 g/nNFbrkbx58.5 - 17.5 gm/dLFTMC HemeAutoSSMCH (RBC) [Entitic mass]33.9 epQrswko11.0 - 34.0 pgFTMC HemeAutoSSMCHC (RBC) [Mass/Vol]34.0 g/uOQxbiqe52.4 - 36.0 gm/dLFTMC HemeAutoSS MCV (RBC) [Entitic vol]99.8 eITxysls34.0 - 100.0 fLFTMC HemeAutoSSPlatelet mean volume (Bld) [Entitic vol]9.8 fLNormal6.4 - 10.8 fLFTMC HemeAutoSSPlatelets (Bld) [#/Vol]161.0 E9/KJluqao784.0 - 500.0 E9/LFT[facility] HemeAutoSSRBC (Bld) [#/Vol] 4.0 E12/LLow4.3 - 5.9 E12/LFT[facility] HemeAutoSSWBC corrected for nucl RBC Auto (Bld) [#/Vol]6.7 E9/LNormal4.0 - 11.0 E9/LFC HemeAutoSSALBUMINon 86-68-6309Kwdikuc [Mass/Vol]3.3 g/dLCritically low3.4-5.0The [facility] HospitalComment on above: Performed By: #### MG, BMP, PHOS #### [facility] [address] [place] [address] Dr. David MaganaGLYCOHEMOGLOBIN A1Con [id number] RECOMMENDATIONSEE BELOWNormal [facility] HospitalComment on above:Result Comment: ADA RECOMMENDED LIMIT 4.0 - 6.0 ADA THERAPEUTIC TARGET < 7.0 ACTION SUGGESTED > 7.0Performed By: #### A1C #### [facility] [address] [address] [address] David MaganaGlucose [Mass/Vol]108 mg/dLNormalThe [facility] HospitalComment on above:Performed By: #### A1C #### [facility] [address] [address] [address] David MaganaHbA1c (Bld) [Mass fraction]5.4 %Normal4.5-6.2The [facility] HospitalComment on above:Performed By: #### A1C #### [facility] [address] [place] [address] Dr. David MaganaPHOSPHORUSon [id number] [Mass/Vol]3.6 mg/dLNormal2.6-4.7 [facility] HospitalComment on above:Performed By: #### MG, BMP, PHOS #### [facility] [address] [address] [address] David MaganaPROF CHEM 8 (BAS METB)on 92-51-3985Ihkhc gap [Moles/Vol]11.6 mmol/LNormalThe [facility] HospitalComment on above:Performed By: #### MG, BMP, PHOS #### [facility] [address] [address] [address] David MaganaCalcium [Mass/Vol]8.9 mg/dLNormal8.5-10.1[facility] Comment on above:Performed By: #### MG, BMP, PHOS #### [facility] [address] [place] [address] Dr. David MaganaChloride [Moles/Vol]107 mmol/IJebvad37-621AtbAultman Hospital Comment on above:Performed By: #### MG, BMP, PHOS #### [facility] [address] [place] [address] Dr. David MaganaCO2 [Moles/Vol]30.8 mmol/ARjzovr17.0-32.0[facility] Comment on above:Performed By: #### MG, BMP, PHOS #### [facility] [address] [address] [address] David MaganaCreatinine [Mass/Vol]1.67 mg/dLCritically high0.70-1.30The [facility] HospitalComment on above:Performed By: #### MG, BMP, PHOS #### [facility] [address] [place] [address] Dr. Hernandez ChangEGFR-AF EDHMOGHB13 mL/min/1.91q1Tjlcnhzbtf low>=60The [facility] HospitalComment on above:Performed By: #### MG, BMP, PHOS #### [facility] [address] [place] [address] Dr. David EvansGFR-NON AF ABLPTUGI19 mL/min/1.82k8Xcdlhbsrvj low>=60The [facility] HospitalComment on above:Performed By: #### MG, BMP, PHOS #### [facility] [address] [place] [address] Dr. David MaganaGlucose [Mass/Vol]128 mg/dLCritically gmbs70-065Szb [facility] HospitalComment on above:Performed By: #### MG, BMP, PHOS #### [facility] [address] [place] [address] Dr. David MaganaPotassium [Moles/Vol]4.4 mmol/LNormal3.5-5.1[facility] Comment on above:Performed By: #### MG, BMP, PHOS #### [facility] [address] [place] [address] Dr. David MaganaSodium [Moles/Vol]145 mmol/BJsovvr686-667Xya [facility] Comment on above:Performed By: #### MG, BMP, PHOS #### [facility] [address] [place] [address] Dr. David MaganaUrea nitrogen [Mass/Vol]25.0 mg/dLCritically high7.0-18.0The [facility] HospitalComment on above:Performed By: #### MG, BMP, PHOS #### [facility] [address] [address] [address] David Gomez nitrogen/Creatinine [Mass ratio]15.0 mg/mgNoKettering Memorial HospitalComment on above:Performed By: #### MG, BMP, PHOS #### [facility] [address] [place] [address] Dr. David MaganaVITAMIN D 25 OHon 93-82-6646MMY D 25-OH11.6 ng/mLNormalThe [facility] HospitalComment on above:Performed By: #### CBC #### [facility] [address] [place] [address] Dr. David Gil RANGESSEE BELOWNoKettering Memorial HospitalComment on above: Result Comment: <20 ng/mL Vit D deficient 20 - <30 ng/mL Vit D insufficient 30 - 100 ng/mL Vit D sufficient >100 ng/mL Potential ToxicityPerformed By: #### CBC #### [facility] [address] [place] [address] Dr. David Frazier AUTO DIFFon 28-09-8763ZNZF #0.0 103/ulNormal0.0-0.1[facility] HospitalComment on above:Performed By: #### MG, BMP, PHOS #### [facility] [address] [place] [address] Dr. David MaganaBasophils/100 WBC (Bld)0.5 %Normal0.2-2.0[facility] Comment on above:Performed By: #### MG, BMP, PHOS #### [facility] [address] [place] [address] Dr. David Colorado #0.7 103/ulNormal0.0-0.7The [facility] on above: Performed By: #### MG, BMP, PHOS #### [facility] [address] [place] [address] Dr. David Evansosinophils/100 WBC (Bld)9.3 %Critically high0.9-7.0The [facility] HospitalComment on above:Performed By: #### MG, BMP, PHOS #### [facility] [address] [place] [address] Dr. David Evansrythrocyte distribution width (RBC) [Ratio]14.6 %Lvojax07.0-15.0 The [facility] HospitalComment on above:Performed By: #### MG, BMP, PHOS #### [facility] [address] [place] [address] Dr. David MaganaHematocrit (Bld) [Volume fraction]41.5 %Critically low42.0-54.0 The [facility] HospitalComment on above:Performed By: #### MG, BMP, PHOS #### [facility] [address] [place] [address] Dr. David MaganaHemoglobin (Bld) [Mass/Vol]13.9 g/dLCritically low14.0-18.0The [facility] HospitalComment on above:Performed By: #### MG, BMP, PHOS #### [facility] [address] [place] [address] Dr. David Gerardo #0.02 10e3/ulNormal0.00-0.03The [facility] HospitalComment on above:Performed By: #### MG, BMP, PHOS #### [facility] [address] [place] [address] Dr. David Gerardo %0.3 %Normal0.0-0.5The [facility] HospitalComment on above: Performed By: #### MG, BMP, PHOS #### [facility] [address] [place] [address] Dr. David SotoH #1.0 103/ulCritically low1.2-3.8The [facility] Comment on above:Performed By: #### MG, BMP, PHOS #### [facility] [address] [place] [address] Dr. David Ramosmphocytes/100 WBC (Bld)13.0 %Critically low20.5-60.0The [facility] HospitalComment on above:Performed By: #### MG, BMP, PHOS #### [facility] [address] [address] [address] David Beasley DIFF REQNONormalThe [facility] HospitalComment on above: Performed By: #### MG, BMP, PHOS #### [facility] [address] [place] [address] Dr. David Faulkner (RBC) [Entitic mass]33.5 jjSvtccd57.9-34.0The [facility] HospitalComment on above:Performed By: #### MG, BMP, PHOS #### [facility] [address] [place] [address] Dr. David Faulkner (RBC) [Mass/Vol]33.5 g/mDVugjut19.9-35.2The [facility] HospitalComment on above:Performed By: #### MG, BMP, PHOS #### [facility] [address] [place] [address] Dr. David Faulkner (RBC) [Entitic vol]100.0 fLCritically high80.0-94.0The [facility] HospitalComment on above:Performed By: #### MG, BMP, PHOS #### [facility] [address] [place] [address] Dr. David Santos #0.8 103/ulNormal0.3-0.8The [facility] HospitalComment on above:Performed By: #### MG, BMP, PHOS #### [facility] [address] [place] [address] Dr. David Dickensocytes/100 WBC (Bld)10.1 %Normal1.7-12.0The [facility] Comment on above:Performed By: #### MG, BMP, PHOS #### [facility] [address] [place] [address] Dr. David Hartley #5.0 103/ulNormal1.4-6.5The [facility] HospitalComment on above:Performed By: #### MG, BMP, PHOS #### [facility] [address] [place] [address] Dr. David Sargentutrophils/100 WBC (Bld)66.8 %Zogngw69.0-75.0The [facility] HospitalComment on above:Performed By: #### MG, BMP, PHOS #### [facility] [address] [place] [address] Dr. David Ortegalet mean volume (Bld) [Entitic vol]11.2 fLNormal9.5-13.5The [facility] HospitalComment on above:Performed By: #### MG, BMP, PHOS #### [facility] [address] [place] [address] Dr. David MaganaPLT187 103/ahGabjut983-716Llz [facility] HospitalComment on above: Performed By: #### MG, BMP, PHOS #### [facility] [address] [place] [address] Dr. David MaganaRBC4.15 106/ulCritically low4.70-6.10The [facility] HospitalComment on above:Performed By: #### MG, BMP, PHOS #### [facility] [address] [place] [address] Dr. David MaganaWBC7.5 103/ulNormal4.0-11.0The [facility] Rehabilitationment on above: Performed By: #### MG, BMP, PHOS #### [facility] [address] [place] [address] Dr. David Blair 14(COMP METB)on 38-55-9856Oxsbjsg [Mass/Vol]3.5 g/dLNormal 3.4-5.0The [facility] HospitalComment on above:Performed By: #### A1C #### [facility] [address] [place] [address] Dr. David MaganaAlbumin/Globulin [Mass ratio]1.1 {ratio}NormalThe [facility] HospitalComment on above:Performed By: #### A1C #### [facility] [address] [place] [address] Dr. David Oates [Catalytic activity/Vol]76 U/MNxsqpx47-851Gmc [facility] HospitalComment on above:Performed By: #### A1C #### [facility] [address] [address] [address] David Ag [Catalytic activity/Vol]23 U/AZduqzt01-28Bxr [facility] HospitalComment on above:Performed By: #### A1C #### [facility] [address] [address] [address] David Camargo gap [Moles/Vol]13.1 mmol/LNormalAultman Hospital Comment on above:Performed By: #### A1C #### [facility] [address] [address] [address] David Iyer [Catalytic activity/Vol]17 U/INzmczv44-41Gzw [facility] HospitalComment on above:Performed By: #### A1C #### [facility] [address] [place] [address] Dr. David MaganaBilirubin [Mass/Vol]0.7 mg/dLNormal0.2-1.0[facility] Comment on above:Performed By: #### A1C #### [facility] [address] [place] [address] Dr. David MaganaCalcium [Mass/Vol]9.0 mg/dLNormal8.5-10.1[facility] Comment on above:Performed By: #### A1C #### [facility] [address] [place] [address] Dr. David MaganaChloride [Moles/Vol]105 mmol/CRapupp48-598Kgo [facility] Comment on above:Performed By: #### A1C #### [facility] [address] [address] [address] David MaganaCO2 [Moles/Vol]29.0 mmol/SMycowl52.0-32.0The [facility] Comment on above:Performed By: #### A1C #### [facility] [address] [place] [address] Dr. David MaganaCreatinine [Mass/Vol]1.77 mg/dLCritically high0.70-1.30The [facility] HospitalComment on above:Performed By: #### A1C #### [facility] [address] [address] [address] David EvansGFR-AF VALBQLFG34 mL/min/1.51w5Qtgovkmmtg low>=60The [facility] HospitalComment on above:Performed By: #### A1C #### [facility] [address] [address] [address] David EvansGFR-NON AF CUVUHCQZ88 mL/min/1.52g4Cfscpijshq low>=60The [facility] HospitalComment on above:Performed By: #### A1C #### [facility] [address] [address] [address] David MaganaGlobulin (S) [Mass/Vol]3.3 g/dLNormalThe [facility] HospitalComment on above:Performed By: #### A1C #### [facility] [address] [address] [address] David MaganaGlucose [Mass/Vol]135 mg/dLCritically lctl04-019SmsLouis Stokes Cleveland VA Medical Centerment on above:Performed By: #### A1C #### [facility] [address] [address] [address] David MaganaPotassium [Moles/Vol]4.1 mmol/LNormal3.5-5.1[facility] Comment on above:Performed By: #### A1C #### [facility] [address] [address] [address] David MaganaProtein [Mass/Vol]6.8 g/dLNormal6.4-8.2[facility] Comment on above:Performed By: #### A1C #### [facility] [address] [address] [address] David MaganaSodium [Moles/Vol]143 mmol/KGuyhpg204-373Zja [facility] Comment on above:Performed By: #### A1C #### [facility] [address] [address] [address] David MaganaUrea nitrogen [Mass/Vol]31.0 mg/dLCritically high7.0-18.0The [facility] HospitalComment on above:Performed By: #### A1C #### [facility] [address] [place] [address] Dr. David MaganaUrea nitrogen/Creatinine [Mass ratio]17.5 mg/mgNoKettering Memorial HospitalComascension genesys hospital on above:Performed By: #### A1C #### [facility] [address] [place] [address] Dr. David MaganaPROTIMEon [id number] Coag (PPP) [Relative time]0.99 {INR} NormalRegency Hospital [facility] East on above:Performed By: #### A1C #### [facility] [address] [place] [address] Dr. David Rogers GUIDELINESSEE [facility] HospitalComasc[facility] hospital on above:Result Comment: DESIRED INR: 2.0 - 3.0 CONDITIONS NOT LISTED BELOW 2.5 - 3.5 FOR PROSTHETIC HEART VALVE REPLACEMENT 2.5 - 3.5 RECURRENT THROMBOSIS Performed By: #### A1C #### [facility] [address] [place] [address] Dr. David MaganaPT Coag (PPP) [Time]10.5 sNormal9.0-11.6The [facility] Comment on above:Performed By: #### A1C #### [facility] [address] [place] [address] Dr. David MaganaPTTon [id number] Coag (Bld) [Time]33.0 oLbqrfj69.3-36.2[facility] on above:Performed By: #### POCGLUC #### [facility] [address] [place] [address] Dr. David MaganaALBUMINon 84-46-8881Zcwyaxc [Mass/Vol]3.6 g/dLNormal3.4-5.0The [facility] on above:Performed By: #### CBC #### [facility] [address] [place] [address] Dr. David MaganaGLYCOHEMOGLOBIN A1Con [id number] RECOMMENDATIONSEE [facility] Street HospitalComment on above:Result Comment: ADA RECOMMENDED LIMIT 4.0 - 6.0 ADA THERAPEUTIC TARGET < 7.0 ACTION SUGGESTED > 7.0Performed By: #### POCGLUC #### [facility] [address] [place] [address] Dr. David MaganaGlucose [Mass/Vol]140 mg/dLNormalThe [facility] HospitalComment on above:Performed By: #### POCGLUC #### [facility] [address] [place] [address] Dr. David MaganaHbA1c (Bld) [Mass fraction]6.5 %Critically high4.5-6.2The [facility] HospitalComment on above:Performed By: #### POCGLUC #### [facility] [address] [place] [address] Dr. David MaganaMAGNESIUMon 59-30-1106Mzppnnwci [Mass/Vol]2.3 mg/dLNormal1.8-2.4 The [facility] HospitalComment on above:Performed By: #### POCGLUC #### [facility] [address] [place] [address] Dr. David MaganaPROF CHEM 8 (BAS METB)on 21-64-1280Pyopt gap [Moles/Vol]13.2 mmol/LNormalThe [facility] HospitalComment on above:Performed By: #### POCGLUC #### [facility] [address] [place] [address] Dr. David MaganaCalcium [Mass/Vol]9.0 mg/dLNormal8.5-10.1The [facility] Comment on above:Performed By: #### POCGLUC #### [facility] [address] [place] [address] Dr. David MaganaChloride [Moles/Vol]105 mmol/EBoizrg87-391Scc [facility] Comment on above:Performed By: #### POCGLUC #### [facility] [address] [place] [address] Dr. David MaganaCO2 [Moles/Vol]28.9 mmol/YImczry32.0-32.0The [facility] Comment on above:Performed By: #### POCGLUC #### [facility] [address] [address] [address] David MaganaCreatinine [Mass/Vol]1.66 mg/dLCritically high0.70-1.30The [facility] HospitalComment on above:Performed By: #### POCGLUC #### [facility] [address] [address] [address] David EvansGFR-AF FWGPJVFF39 mL/min/1.68i5Scjleukscv low>=60The [facility] HospitalComment on above:Performed By: #### POCGLUC #### [facility] [address] [address] [address] David EvansGFR-NON AF VIDUVUYO23 mL/min/1.97a5Aelcahtucv low>=60The [facility] HospitalComment on above:Performed By: #### POCGLUC #### [facility] [address] [address] [address] David MaganaGlucose [Mass/Vol]123 mg/dLCritically deba30-840Cir [facility] HospitalComment on above:Performed By: #### POCGLUC #### [facility] [address] [address] [address] David MaganaPotassium [Moles/Vol]4.1 mmol/LNormal3.5-5.1[facility] Comment on above:Performed By: #### POCGLUC #### [facility] [address] [address] [address] David MaganaSodium [Moles/Vol]143 mmol/FUquexb452-112Gls [facility] Comment on above:Performed By: #### POCGLUC #### [facility] [address] [address] [address] David MaganaUrea nitrogen [Mass/Vol]29.0 mg/dLCritically high7.0-18.0The [facility] Rehabilitationment on above:Performed By: #### POCGLUC #### [facility] [address] [address] [address] David MaganaUrea nitrogen/Creatinine [Mass ratio]17.5 mg/mgNormalThe [facility] HospitalComment on above:Performed By: #### POCGLUC #### [facility] [address] [address] [address] David Wan T PROTEIN CREAT RATIOon [id number] TOTAL PROTEIN<6.0 Normal<=12.0The [facility] Rehabilitationment on above:Performed By: #### MG, BMP, PHOS #### [facility] [address] [place] [address] Dr. David Wan CREAT41.21 mg/zLTdolhh07.00-300.00The [facility] Comment on above:Performed By: #### MG, BMP, PHOS #### [facility] [address] [place] [address] Dr. David MaganaALBUMINon 89-77-0029Bwrgmml [Mass/Vol]3.3 g/dLCritically low 3.4-5.0The [facility] HospitalComment on above:Performed By: #### CBC #### [facility] [address] [place] [address] Dr. David MaganaCREATININE URINEon 24-91-7664GQKVU CREAT19.69 mg/dLCritically low 20.00-300.00The [facility] HospitalComment on above:Performed By: #### MG, BMP, PHOS #### [facility] [address] [place] [address] Dr. Dvaid MaganaHEMOGLOBINon 44-35-9162Gsymxduyvh (Bld) [Mass/Vol]14.9 g/dLNormal 14.0-18.0The [facility] HospitalComment on above:Performed By: #### MG, BMP, PHOS #### [facility] [address] [place] [address] Dr. David MaganaMAGNESIUMon 18-92-4606Clqutluoy [Mass/Vol]2.2 mg/dLNormal1.8-2.4 The [facility] HospitalComment on above:Performed By: #### CBC #### [facility] [address] [place] [address] Dr. Yilan ChangPHOSPHORUSon 67-28-6728Dfaejefeu [Mass/Vol]3.9 mg/dLNormal2.6-4.7 The [facility] HospitalComment on above:Performed By: #### CBC #### [facility] [address] [address] [address] David MaganaPROF CHEM 8 (BAS METB)on 79-27-0706Pkpsw gap [Moles/Vol]11.9 mmol/LNormalThe [facility] HospitalComment on above:Performed By: #### CBC #### [facility] [address] [address] [address] David MaganaCalcium [Mass/Vol]8.8 mg/dLNormal8.5-10.1The [facility] Comment on above:Performed By: #### CBC #### [facility] [address] [address] [address] David MaganaChloride [Moles/Vol]104 mmol/NIqskim42-679Qpv [facility] Comment on above:Performed By: #### CBC #### [facility] [address] [address] [address] David MaganaCO2 [Moles/Vol]27.4 mmol/IYjwcuw23.0-32.0[facility] Comment on above:Performed By: #### CBC #### [facility] [address] [address] [address] David MaganaCreatinine [Mass/Vol]1.68 mg/dLCritically high0.70-1.30The [facility] HospitalComment on above:Performed By: #### CBC #### [facility] [address] [address] [address] Hernandez ChangEGFR-AF JTJGSNXM16 mL/min/1.64n4Ikhlhiztau low>=60The [facility] HospitalComment on above:Performed By: #### CBC #### [facility] [address] [address] [address] David EvansGFR-NON AF HUEHMZPS15 mL/min/1.39j1Klbnoejjbd low>=60The [facility] HospitalComment on above:Performed By: #### CBC #### [facility] [address] [address] [address] David MaganaGlucose [Mass/Vol]212 mg/dLCritically qsah57-376Thd [facility] HospitalComment on above:Performed By: #### CBC #### [facility] [address] [address] [address] David MaganaPotassium [Moles/Vol]4.3 mmol/LNormal3.5-5.1The [facility] Comment on above:Performed By: #### CBC #### [facility] [address] [address] [address] David MaganaSodium [Moles/Vol]139 mmol/BJhjylo652-269Nof [facility] Comment on above:Performed By: #### CBC #### [facility] [address] [address] [address] David MaganaUrea nitrogen [Mass/Vol]25.0 mg/dLCritically high7.0-18.0The [facility] HospitalComment on above:Performed By: #### CBC #### [facility] [address] [address] [address] David Gomez nitrogen/Creatinine [Mass ratio]14.9 mg/mgNormalThe [facility] HospitalComment on above:Performed By: #### CBC #### [facility] [address] [address] [address] David MaganaPROTEIN RAND URINEon [id number] PROT<5.0Normal<=11.9The [facility] HospitalComment on above:Performed By: #### MG, BMP, PHOS #### [facility] [address] [address] [address] David Mitchell KARI DOP LEG BILon [id number] KARI DOP LEG BILEXAMINATION: US KARI DOP [...] Electronically authenticated by: CLOVER PEREZ Date: 2022-11-02 16:21[facility] HospitalBNPon [id number] peptide B (Bld) [Mass/Vol]2143.0 pg/mLCritically high<=1,800.0The [facility] HospitalComment on above:Performed By: #### MG, BMP, PHOS #### [facility] [address] [address] [address] David Frazier AUTO DIFFon [id number] #0.0 103/ulNormal0.0-0.1The [facility] HospitalComment on above:Performed By: #### A1C #### [facility] [address] [address] [address] David MaganaBasophils/100 WBC (Bld)0.3 %Normal0.2-2.0The [facility] Comment on above:Performed By: #### A1C #### [facility] [address] [address] [address] David [place] #0.3 103/ulNormal0.0-0.7The [facility] HospitalComment on above: Performed By: #### A1C #### [facility] [address] [address] [address] David Evansosinophils/100 WBC (Bld)2.4 %Normal0.9-7.0The [facility] Comment on above:Performed By: #### A1C #### [facility] [address] [address] [address] David Evansrythrocyte distribution width (RBC) [Ratio]13.4 %Yovwwy88.0-15.0 [facility] HospitalComment on above:Performed By: #### A1C #### [facility] [address] [place] [address] Dr. David MaganaHematocrit (Bld) [Volume fraction]42.7 %Hcxnms53.0-54.0The [facility] HospitalComment on above:Performed By: #### A1C #### [facility] [address] [address] [address] David MaganaHemoglobin (Bld) [Mass/Vol]14.2 g/sXNroanm77.0-18.0The [facility] HospitalComment on above:Performed By: #### A1C #### [facility] [address] [address] [address] David Gerardo #0.18 10e3/ulCritically high0.00-0.03The [facility] Comment on above:Performed By: #### A1C #### [facility] [address] [place] [address] Dr. David Gerardo %1.6 %Critically high0.0-0.5The [facility] HospitalComment on above:Performed By: #### A1C #### [facility] [address] [place] [address] Dr. David Patiño #0.9 103/ulCritically low1.2-3.8The [facility] Comment on above:Performed By: #### A1C #### [facility] [address] [address] [address] David Sotohocytes/100 WBC (Bld)8.1 %Critically low20.5-60.0The [facility] HospitalComment on above:Performed By: #### A1C #### [facility] [address] [address] [address] David DennisonUAL DIFF REQNONormalThe [facility] HospitalComment on above: Performed By: #### A1C #### [facility] [address] [address] [address] [facility]anaCOL[facility] (RBC) [Entitic mass]33.3 eyFxttzz40.9-34.0The [facility] HospitalComment on above:Performed By: #### A1C #### [facility] [address] [place] [address] Dr. David Faulkner (RBC) [Mass/Vol]33.3 g/rRCmtuts40.9-35.2The [facility] HospitalComment on above:Performed By: #### A1C #### [facility] [address] [address] [address] David FaulknerV (RBC) [Entitic vol]100.2 fLCritically high80.0-94.0The [facility] HospitalComment on above:Performed By: #### A1C #### [facility] [address] [address] [address] David Santos #1.2 103/ulCritically high0.3-0.8The [facility] Comment on above:Performed By: #### A1C #### [facility] [address] [address] [address] David Dickensocytes/100 WBC (Bld)10.5 %Normal1.7-12.0[facility] Comment on above:Performed By: #### A1C #### [facility] [address] [place] [address] Dr. David SargentUT #8.9 103/ulCritically high1.4-6.5ThWilson [facility] Comment on above:Performed By: #### A1C #### [facility] [address] [address] [address] David Sargentutrophils/100 WBC (Bld)77.1 %Critically high43.0-75.0The [facility] HospitalComment on above:Performed By: #### A1C #### [facility] [address] [address] [address] David Ortegalet mean volume (Bld) [Entitic vol]11.3 fLNormal9.5-13.5The [facility] HospitalComment on above:Performed By: #### A1C #### [facility] [address] [address] [address] David MaganaPLT175 103/vzYschqx531-965Efj [facility] HospitalComment on above: Performed By: #### A1C #### [facility] [address] [place] [address] Dr. David MaganaRBC4.26 106/ulCritically low4.70-6.10ThWilson Memorial HospitalComment on above:Performed By: #### A1C #### [facility] [address] [address] [address] David MaganaWBC11.5 103/ulCritically high4.0-11.0The [facility] HospitalComment on above:Performed By: #### A1C #### [facility] [address] [address] [address] David MaganaPROF 14(COMP METB)on [id number] [Mass/Vol]2.6 g/dL Critically low3.4-5.0The [facility] HospitalComment on above:Performed By: #### MG, BMP, PHOS #### [facility] [address] [place] [address] Dr. David MaganaAlbumin/Globulin [Mass ratio]0.9 {ratio}NormalThe [facility] HospitalComment on above:Performed By: #### MG, BMP, PHOS #### [facility] [address] [place] [address] Dr. David Oates [Catalytic activity/Vol]49 U/SEzyafg06-029Xph [facility] HospitalComment on above:Performed By: #### MG, BMP, PHOS #### [facility] [address] [place] [address] Dr. David Ag [Catalytic activity/Vol]25 U/ZNavbsn36-94Ypg [facility] HospitalComment on above:Performed By: #### MG, BMP, PHOS #### [facility] [address] [place] [address] Dr. David Camargo gap [Moles/Vol]12.8 mmol/LNormalThe [facility] on above:Performed By: #### MG, BMP, PHOS #### [facility] [address] [place] [address] Dr. David Iyer [Catalytic activity/Vol]9 U/LCritically cvu74-02Wav [facility] HospitalComment on above:Performed By: #### MG, BMP, PHOS #### [facility] [address] [place] [address] Dr. Yilan ChangBilirubin [Mass/Vol]0.5 mg/dLNormal0.2-1.0[facility] Comment on above:Performed By: #### MG, BMP, PHOS #### [facility] [address] [address] [address] David MaganaCalcium [Mass/Vol]8.3 mg/dLCritically low8.5-10.1The [facility] HospitalComment on above:Performed By: #### MG, BMP, PHOS #### [facility] [address] [place] [address] Dr. David MaganaChloride [Moles/Vol]105 mmol/BPtades29-333HbeAultman Hospital Comment on above:Performed By: #### MG, BMP, PHOS #### [facility] [address] [place] [address] Dr. David MaganaCO2 [Moles/Vol]24.2 mmol/NPrifmw51.0-32.0The [facility] Comment on above:Performed By: #### MG, BMP, PHOS #### [facility] [address] [place] [address] Dr. David MaganaCreatinine [Mass/Vol]1.28 mg/dLNormal0.70-1.30The [facility] HospitalComment on above:Performed By: #### MG, BMP, PHOS #### [facility] [address] [place] [address] Dr. Hernandez ChangEGFR-AF [place]ER>60Normal>=60The [facility] HospitalComment on above:Performed By: #### MG, BMP, PHOS #### [facility] [address] [place] [address] Dr. David EvansGFR-NON AF IHDRWDHJ85 mL/min/1.48m7Bhkkgsdpjg low>=60The [facility] HospitalComment on above:Performed By: #### MG, BMP, PHOS #### [facility] [address] [place] [address] Dr. David MaganaGlobulin (S) [Mass/Vol]2.9 g/dLNormalThe [facility] HospitalComment on above:Performed By: #### MG, BMP, PHOS #### [facility] [address] [address] [address] David MaganaGlucose [Mass/Vol]205 mg/dLCritically fnst11-500Gna [facility] HospitalComment on above:Performed By: #### MG, BMP, PHOS #### [facility] [address] [place] [address] Dr. David MaganaPotassium [Moles/Vol]4.0 mmol/LNormal3.5-5.1The [facility] Comment on above:Performed By: #### MG, BMP, PHOS #### [facility] [address] [place] [address] Dr. David MaganaProtein [Mass/Vol]5.5 g/dLCritically low6.4-8.2The [facility] HospitalComment on above:Performed By: #### MG, BMP, PHOS #### [facility] [address] [place] [address] Dr. David Linkdium [Moles/Vol]138 mmol/UBglzds979-446Xsz [facility] Comment on above:Performed By: #### MG, BMP, PHOS #### [facility] [address] [place] [address] Dr. David MaganaUrea nitrogen [Mass/Vol]36.0 mg/dLCritically high7.0-18.0The [facility] HospitalComment on above:Performed By: #### MG, BMP, PHOS #### [facility] [address] [place] [address] Dr. David Gomez nitrogen/Creatinine [Mass ratio]28.1 mg/mgNormalThe [facility] HospitalComment on above:Performed By: #### MG, BMP, PHOS #### [facility] [address] [place] [address] Dr. David Chau [id number] peptide B (Bld) [Mass/Vol]3485.0 pg/mLCritically high<=1,800.0The [facility] HospitalComment on above:Result Comment: repeatedPerformed By: #### A1C #### [facility] [address] [place] [address] Dr. David Frazier AUTO DIFFon [id number] #0.0 103/ulNormal0.0-0.1The [facility] HospitalComment on above:Performed By: #### CBC #### [facility] [address] [place] [address] Dr. David MaganaBasophils/100 WBC (Bld)0.3 %Normal0.2-2.0The [facility] Comment on above:Performed By: #### CBC #### [facility] [address] [place] [address] Dr. David Colorado #0.2 103/ulNormal0.0-0.7The [facility] HospitalComment on above: Performed By: #### CBC #### [facility] [address] [place] [address] Dr. David Evansosinophils/100 WBC (Bld)1.9 %Normal0.9-7.0The [facility] Comment on above:Performed By: #### CBC #### [facility] [address] [place] [address] Dr. David Evansrythrocyte distribution width (RBC) [Ratio]13.4 %Wfympr11.0-15.0 The [facility] HospitalComment on above:Performed By: #### CBC #### [facility] [address] [place] [address] Dr. David MaganaHematocrit (Bld) [Volume fraction]42.5 %Pzaaaf65.0-54.0The [facility] HospitalComment on above:Performed By: #### CBC #### [facility] [address] [place] [address] Dr. David MaganaHemoglobin (Bld) [Mass/Vol]14.2 g/cTIuqhla33.0-18.0The [facility] HospitalComment on above:Performed By: #### CBC #### [facility] [address] [place] [address] Dr. David Gerardo #0.22 10e3/ulCritically high0.00-0.03[facility] Comment on above:Performed By: #### CBC #### [facility] [address] [place] [address] Dr. David Gerardo %2.1 %Critically high0.0-0.5The [facility] HospitalComment on above:Performed By: #### CBC #### [facility] [address] [place] [address] Dr. David Patiño #0.8 103/ulCritically low1.2-3.8The [facility] Comment on above:Performed By: #### CBC #### [facility] [address] [place] [address] Dr. David Sotohocytes/100 WBC (Bld)7.7 %Critically low20.5-60.0The [facility] HospitalComment on above:Performed By: #### CBC #### [facility] [address] [place] [address] Dr. David Beasley DIFF REQNONormalThe [facility] HospitalComment on above: Performed By: #### CBC #### [facility] [address] [place] [address] Dr. David Torres (RBC) [Entitic mass]33.0 yiBhkvnv30.9-34.0The [facility] HospitalComment on above:Performed By: #### CBC #### [facility] [address] [place] [address] Dr. David Mireles (RBC) [Mass/Vol]33.4 g/aHVfpznn31.9-35.2The [facility] HospitalComment on above:Performed By: #### CBC #### [facility] [address] [place] [address] Dr. David Topete (RBC) [Entitic vol]98.8 fLCritically high80.0-94.0The [facility] HospitalComment on above:Performed By: #### CBC #### [facility] [address] [place] [address] Dr. David Santos #1.0 103/ulCritically high0.3-0.8The [facility] Comment on above:Performed By: #### CBC #### [facility] [address] [place] [address] Dr. David Dickensocytes/100 WBC (Bld)9.7 %Normal1.7-12.0[facility] Comment on above:Performed By: #### CBC #### [facility] [address] [place] [address] Dr. David Hartley #8.1 103/ulCritically high1.4-6.5The [facility] Comment on above:Performed By: #### CBC #### [facility] [address] [place] [address] Dr. David Sargentutrophils/100 WBC (Bld)78.3 %Critically high43.0-75.0The [facility] HospitalComment on above:Performed By: #### CBC #### [facility] [address] [place] [address] Dr. David Ortegalet mean volume (Bld) [Entitic vol]10.7 fLNormal9.5-13.5The [facility] HospitalComment on above:Performed By: #### CBC #### [facility] [address] [place] [address] Dr. David MaganaPLT177 103/izLpndlw741-246Azw [facility] HospitalComment on above: Performed By: #### CBC #### [facility] [address] [place] [address] Dr. David MaganaRBC4.30 106/ulCritically low4.70-6.10The [facility] HospitalComment on above:Performed By: #### CBC #### [facility] [address] [place] [address] Dr. David MaganaWBC10.4 103/ulNormal4.0-11.0The [facility] HospitalComment on above:Performed By: #### CBC #### [facility] [address] [place] [address] Dr. Yilan ChangPROF 14(COMP METB)on [id number] [Mass/Vol]2.6 g/dL Critically low3.4-5.0The [facility] HospitalComment on above:Performed By: #### A1C #### [facility] [address] [place] [address] Dr. David MaganaAlbumin/Globulin [Mass ratio]1.0 {ratio}NormalThe [facility] HospitalComment on above:Performed By: #### A1C #### [facility] [address] [place] [address] Dr. David HartP [Catalytic activity/Vol]50 U/EFvhxbm26-754Jmi [facility] HospitalComment on above:Performed By: #### A1C #### [facility] [address] [place] [address] Dr. David HartT [Catalytic activity/Vol]28 U/VSkydkd24-71Epm [facility] HospitalComment on above:Performed By: #### A1C #### [facility] [address] [place] [address] Dr. David Camargo gap [Moles/Vol]11.4 mmol/LNormalThe [facility] Comment on above:Performed By: #### A1C #### [facility] [address] [place] [address] Dr. David MaganaAST [Catalytic activity/Vol]13 U/LCritically fde61-93Evs [facility] HospitalComment on above:Performed By: #### A1C #### [facility] [address] [place] [address] Dr. David MaganaBilirubin [Mass/Vol]0.4 mg/dLNormal0.2-1.0The [facility] Comment on above:Performed By: #### A1C #### [facility] [address] [place] [address] Dr. David MaganaCalcium [Mass/Vol]8.4 mg/dLCritically low8.5-10.1The [facility] HospitalComment on above:Performed By: #### A1C #### [facility] [address] [place] [address] Dr. David MaganaChloride [Moles/Vol]107 mmol/SHkcrjc83-505Fwe [facility] Comment on above:Performed By: #### A1C #### [facility] [address] [address] [address] David MaganaCO2 [Moles/Vol]24.6 mmol/CEerfqh80.0-32.0The [facility] Comment on above:Performed By: #### A1C #### [facility] [address] [address] [address] David MaganaCreatinine [Mass/Vol]1.26 mg/dLNormal0.70-1.30The [facility] HospitalComment on above:Performed By: #### A1C #### [facility] [address] [place] [address] Dr. Hernandez ChangEGFR-AF [place]>60Normal>=60The [facility] HospitalComment on above:Performed By: #### A1C #### [facility] [address] [place] [address] Dr. David EvansGFR-NON AF ZVIOFOBF69 mL/min/1.99j5Upuzdrkjkj low>=60The [facility] HospitalComment on above:Performed By: #### A1C #### [facility] [address] [place] [address] Dr. David MaganaGlobulin (S) [Mass/Vol]2.7 g/dLNormalThe [facility] HospitalComment on above:Performed By: #### A1C #### [facility] [address] [place] [address] Dr. David MaganaGlucose [Mass/Vol]203 mg/dLCritically ivki26-976Lgd [facility] HospitalComment on above:Performed By: #### A1C #### [facility] [address] [address] [address] David MaganaPotassium [Moles/Vol]4.0 mmol/LNormal3.5-5.1The [facility] Comment on above:Performed By: #### A1C #### [facility] [address] [address] [address] David MaganaProtein [Mass/Vol]5.3 g/dLCritically low6.4-8.2The [facility] HospitalComment on above:Performed By: #### A1C #### [facility] [address] [place] [address] Dr. David Ritchieum [Moles/Vol]139 mmol/EFzutba064-338Mot [facility] Comment on above:Performed By: #### A1C #### [facility] [address] [place] [address] Dr. David Gomez nitrogen [Mass/Vol]33.0 mg/dLCritically high7.0-18.0The [facility] HospitalComment on above:Performed By: #### A1C #### [facility] [address] [place] [address] Dr. David Gomez nitrogen/Creatinine [Mass ratio]26.2 mg/mgNormalThe [facility] HospitalComment on above:Performed By: #### A1C #### [facility] [address] [place] [address] Dr. David Chau [id number] peptide B (Bld) [Mass/Vol]7478.0 pg/mLCritically high<=1,800.0The [facility] HospitalComment on above:Performed By: #### A1C #### [facility] [address] [place] [address] Dr. David Frazier AUTO DIFFon [id number] #0.1 103/ulNormal0.0-0.1The [facility] HospitalComment on above:Performed By: #### MG, BMP, PHOS #### [facility] [address] [place] [address] Dr. David MaganaBaluis fernandophils/100 WBC (Bld)0.8 %Normal0.2-2.0The [facility] Comment on above:Performed By: #### MG, BMP, PHOS #### [facility] [address] [place] [address] Dr. David Colorado #0.1 103/ulNormal0.0-0.7The [facility] HospitalComment on above: Performed By: #### MG, BMP, PHOS #### [facility] [address] [place] [address] Dr. David Evansosinophils/100 WBC (Bld)0.6 %Critically low0.9-7.0The [facility] HospitalComment on above:Performed By: #### MG, BMP, PHOS #### [facility] [address] [place] [address] Dr. David Evansrythrocyte distribution width (RBC) [Ratio]13.4 %Qrvntk04.0-15.0 The [facility] HospitalComment on above:Performed By: #### MG, BMP, PHOS #### [facility] [address] [place] [address] Dr. David MaganaHematocrit (Bld) [Volume fraction]43.2 %Hjdabs29.0-54.0The [facility] HospitalComment on above:Performed By: #### MG, BMP, PHOS #### [facility] [address] [place] [address] Dr. David MaganaHemoglobin (Bld) [Mass/Vol]14.2 g/vRQnwpbz17.0-18.0The [facility] HospitalComment on above:Performed By: #### MG, BMP, PHOS #### [facility] [address] [place] [address] Dr. David Gerardo #0.21 10e3/ulCritically high0.00-0.03The [facility] Comment on above:Performed By: #### MG, BMP, PHOS #### [facility] [address] [place] [address] Dr. David Gerardo %2.0 %Critically high0.0-0.5The [facility] HospitalComment on above:Performed By: #### MG, BMP, PHOS #### [facility] [address] [place] [address] Dr. David Patiño #0.8 103/ulCritically low1.2-3.8The [facility] Comment on above:Performed By: #### MG, BMP, PHOS #### [facility] [address] [place] [address] Dr. David Ramosmphocytes/100 WBC (Bld)7.7 %Critically low20.5-60.0The [facility] HospitalComment on above:Performed By: #### MG, BMP, PHOS #### [facility] [address] [place] [address] Dr. David Beasley DIFF REQNONormalThe [facility] HospitalComment on above: Performed By: #### MG, BMP, PHOS #### [facility] [address] [place] [address] Dr. David Faulkner (RBC) [Entitic mass]33.2 njIjrykg71.9-34.0The [facility] HospitalComment on above:Performed By: #### MG, BMP, PHOS #### [facility] [address] [place] [address] Dr. David Faulkner (RBC) [Mass/Vol]32.9 g/cGLhglxs42.9-35.2The [facility] HospitalComment on above:Performed By: #### MG, BMP, PHOS #### [facility] [address] [place] [address] Dr. David Topete (RBC) [Entitic vol]100.9 fLCritically high80.0-94.0The [facility] HospitalComment on above:Performed By: #### MG, BMP, PHOS #### [facility] [address] [place] [address] Dr. David Santos #1.0 103/ulCritically high0.3-0.8The [facility] Comment on above:Performed By: #### MG, BMP, PHOS #### [facility] [address] [place] [address] Dr. David Dickensocytes/100 WBC (Bld)10.0 %Normal1.7-12.0[facility] Comment on above:Performed By: #### MG, BMP, PHOS #### [facility] [address] [place] [address] Dr. David Hartley #8.1 103/ulCritically high1.4-6.5The [facility] Comment on above:Performed By: #### MG, BMP, PHOS #### [facility] [address] [place] [address] Dr. David Sargentutrophils/100 WBC (Bld)78.9 %Critically high43.0-75.0The [facility] HospitalComment on above:Performed By: #### MG, BMP, PHOS #### [facility] [address] [place] [address] Dr. David MaganaPlatelet mean volume (Bld) [Entitic vol]10.8 fLNormal9.5-13.5The [facility] HospitalComment on above:Performed By: #### MG, BMP, PHOS #### [facility] [address] [place] [address] Dr. David MaganaPLT172 103/ltKlfksk341-140Lew [facility] HospitalComment on above: Performed By: #### MG, BMP, PHOS #### [facility] [address] [place] [address] Dr. David MaganaRBC4.28 106/ulCritically low4.70-6.10The [facility] HospitalComment on above:Performed By: #### MG, BMP, PHOS #### [facility] [address] [place] [address] Dr. David MaganaWBC10.3 103/ulNormal4.0-11.0The [facility] HospitalComment on above:Performed By: #### MG, BMP, PHOS #### [facility] [address] [place] [address] Dr. David Varghese URINEon [id number] URINEIsolate 1 Escherichia coli 15,000 cfu/mL of [...] <=16 S F Trimethoprim/Sulfamethoxazole >=320 R FNormalThe [facility] HospitalComment on above:Performed By: #### MG, BMP, PHOS #### [facility] [address] [place] [address] Dr. David MaganaPROF 14(COMP METB)on 26-62-7467Dmiwrhx [Mass/Vol]2.6 g/dL Critically low3.4-5.0The [facility] HospitalComment on above:Performed By: #### A1C #### [facility] [address] [place] [address] Dr. David MaganaAlbumin/Globulin [Mass ratio]0.9 {ratio}NormalThe [facility] HospitalComment on above:Performed By: #### A1C #### [facility] [address] [place] [address] Dr. David Oates [Catalytic activity/Vol]48 U/DQivkxz95-495Dlp [facility] HospitalComment on above:Performed By: #### A1C #### [facility] [address] [place] [address] Dr. David Ag [Catalytic activity/Vol]27 U/OHntsdp14-86Qnx [facility] HospitalComment on above:Performed By: #### A1C #### [facility] [address] [place] [address] Dr. David Camargo gap [Moles/Vol]13.4 mmol/LNormalThe [facility] Comment on above:Performed By: #### A1C #### [facility] [address] [place] [address] Dr. David Iyer [Catalytic activity/Vol]22 U/XNzreso46-69Bvy [facility] HospitalComment on above:Performed By: #### A1C #### [facility] [address] [place] [address] Dr. David MaganaBilirubin [Mass/Vol]0.5 mg/dLNormal0.2-1.0[facility] Comment on above:Performed By: #### A1C #### [facility] [address] [place] [address] Dr. David MaganaCalcium [Mass/Vol]8.3 mg/dLCritically low8.5-10.1The [facility] HospitalComment on above:Performed By: #### A1C #### [facility] [address] [place] [address] Dr. David MaganaChloride [Moles/Vol]105 mmol/OWxepzs44-289Bps [facility] Comment on above:Performed By: #### A1C #### [facility] [address] [place] [address] Dr. David MaganaCO2 [Moles/Vol]21.0 mmol/RMckiet59.0-32.0The [facility] Comment on above:Performed By: #### A1C #### [facility] [address] [place] [address] Dr. David MaganaCreatinine [Mass/Vol]1.38 mg/dLCritically high0.70-1.30The [facility] HospitalComment on above:Performed By: #### A1C #### [facility] [address] [place] [address] Dr. David EvansGFR-AF ABOHYLKW26 mL/min/1.55o6Yyoyse>=60The [facility] Comment on above:Performed By: #### A1C #### [facility] [address] [place] [address] Dr. David EvansGFR-NON AF FEDDBEMN11 mL/min/1.13l4Aporghabej low>=60The [facility] HospitalComment on above:Performed By: #### A1C #### [facility] [address] [place] [address] Dr. David MaganaGlobulin (S) [Mass/Vol]2.8 g/dLNormalThe [facility] HospitalComment on above:Performed By: #### A1C #### [facility] [address] [place] [address] Dr. David MaganaGlucose [Mass/Vol]156 mg/dLCritically zkrf48-927Agx [facility] HospitalComment on above:Performed By: #### A1C #### [facility] [address] [place] [address] Dr. David MaganaPotassium [Moles/Vol]4.4 mmol/LNormal3.5-5.1The [facility] Comment on above:Performed By: #### A1C #### [facility] [address] [place] [address] Dr. David MaganaProtein [Mass/Vol]5.4 g/dLCritically low6.4-8.2The [facility] HospitalComment on above:Performed By: #### A1C #### [facility] [address] [place] [address] Dr. David Linkdium [Moles/Vol]135 mmol/LCritically uhq805-974Oyb [facility] HospitalComment on above:Performed By: #### A1C #### [facility] [address] [place] [address] Dr. David MaganaUrea nitrogen [Mass/Vol]40.0 mg/dLCritically high7.0-18.0The [facility] HospitalComment on above:Performed By: #### A1C #### [facility] [address] [place] [address] Dr. David Gomez nitrogen/Creatinine [Mass ratio]29.0 mg/mgNormalThe [facility] HospitalComment on above:Performed By: #### A1C #### [facility] [address] [place] [address] Dr. David Chau [id number] peptide B (Bld) [Mass/Vol]20517.0 pg/mLCritically high<=1,800.0The [facility] HospitalComment on above:Performed By: #### CVDTBH #### [facility] [address] [place] [address] Dr. David Frazier AUTO DIFFon [id number] #0.0 103/ulNormal0.0-0.1The [facility] HospitalComment on above:Performed By: #### CBC #### [facility] [address] [address] [address] David MaganaBasophils/100 WBC (Bld)0.3 %Normal0.2-2.0The [facility] Comment on above:Performed By: #### CBC #### [facility] [address] [address] [address] David Colorado #0.0 103/ulNormal0.0-0.7The [facility] HospitalComment on above: Performed By: #### CBC #### [facility] [address] [place] [address] Dr. David Evansosinophils/100 WBC (Bld)0.2 %Critically low0.9-7.0The [facility] HospitalComment on above:Performed By: #### CBC #### [facility] [address] [place] [address] Dr. David Evansrythrocyte distribution width (RBC) [Ratio]13.4 %Judfdm72.0-15.0 The [facility] HospitalComment on above:Performed By: #### CBC #### [facility] [address] [place] [address] Dr. David MaganaHematocrit (Bld) [Volume fraction]43.4 %Hkizwm22.0-54.0The [facility] HospitalComment on above:Performed By: #### CBC #### [facility] [address] [place] [address] Dr. David MaganaHemoglobin (Bld) [Mass/Vol]14.6 g/uPGdhjvi76.0-18.0The [facility] HospitalComment on above:Performed By: #### CBC #### [facility] [address] [place] [address] Dr. David Gerardo #0.18 10e3/ulCritically high0.00-0.03The [facility] Comment on above:Performed By: #### CBC #### [facility] [address] [place] [address] Dr. David Gerardo %1.5 %Critically high0.0-0.5The [facility] HospitalComment on above:Performed By: #### CBC #### [facility] [address] [address] [address] David Patiño #0.8 103/ulCritically low1.2-3.8The [facility] Comment on above:Performed By: #### CBC #### [facility] [address] [address] [address] David Sotohocytes/100 WBC (Bld)6.6 %Critically low20.5-60.0The [facility] HospitalComment on above:Performed By: #### CBC #### [facility] [address] [address] [address] David Beasley DIFF REQNONormalThe [facility] HospitalComment on above: Performed By: #### CBC #### [facility] [address] [address] [address] David Torres (RBC) [Entitic mass]33.7 ejHmsevh93.9-34.0The [facility] HospitalComment on above:Performed By: #### CBC #### [facility] [address] [address] [address] David Faulkner (RBC) [Mass/Vol]33.6 g/vFLkfimi60.9-35.2The [facility] HospitalComment on above:Performed By: #### CBC #### [facility] [address] [address] [address] David Faulkner (RBC) [Entitic vol]100.2 fLCritically high80.0-94.0[facility] HospitalComment on above:Performed By: #### CBC #### [facility] [address] [address] [address] David Santos #1.1 103/ulCritically high0.3-0.8The [facility] Comment on above:Performed By: #### CBC #### [facility] [address] [address] [address] David Dickensocytes/100 WBC (Bld)9.3 %Normal1.7-12.0[facility] Comment on above:Performed By: #### CBC #### [facility] [address] [place] [address] Dr. David Hartley #9.6 103/ulCritically high1.4-6.5The [facility] Comment on above:Performed By: #### CBC #### [facility] [address] [place] [address] Dr. David Sargentutrophils/100 WBC (Bld)82.1 %Critically high43.0-75.0The [facility] HospitalComment on above:Performed By: #### CBC #### [facility] [address] [place] [address] Dr. David Ortegalet mean volume (Bld) [Entitic vol]10.8 fLNormal9.5-13.5The [facility] HospitalComment on above:Performed By: #### CBC #### [facility] [address] [place] [address] Dr. David MaganaPLT202 103/goSblpgn794-211Maj [facility] HospitalComment on above: Performed By: #### CBC #### [facility] [address] [place] [address] Dr. David MaganaRBC4.33 106/ulCritically low4.70-6.10The [facility] HospitalComment on above:Performed By: #### CBC #### [facility] [address] [place] [address] Dr. David MaganaWBC11.7 103/ulCritically high4.0-11.0The [facility] HospitalComment on above:Performed By: #### CBC #### [facility] [address] [place] [address] Dr. David Blair 14(COMP METB)on [id number] [Mass/Vol]3.4 g/dLNormal 3.4-5.0The [facility] HospitalComment on above:Performed By: #### A1C #### [facility] [address] [place] [address] Dr. Daivd MaganaAlbumin/Globulin [Mass ratio]1.1 {ratio}NormalThe [facility] HospitalComment on above:Performed By: #### A1C #### [facility] [address] [place] [address] Dr. David HartP [Catalytic activity/Vol]63 U/OHcgmys45-441Jfl [facility] HospitalComment on above:Performed By: #### A1C #### [facility] [address] [place] [address] Dr. David Ag [Catalytic activity/Vol]34 U/DJmlghm05-01Kdm [facility] HospitalComment on above:Performed By: #### A1C #### [facility] [address] [place] [address] Dr. David Bacaon gap [Moles/Vol]20.9 mmol/LNormalThe [facility] Comment on above:Performed By: #### A1C #### [facility] [address] [place] [address] Dr. David MaganaAST [Catalytic activity/Vol]18 U/YBvhjnz12-54Heh [facility] for Rehabilitationment on above:Performed By: #### A1C #### [facility] [address] [place] [address] Dr. David MaganaBilirubin [Mass/Vol]0.5 mg/dLNormal0.2-1.0The [facility] Comment on above:Performed By: #### A1C #### [facility] [address] [place] [address] Dr. David MaganaCalcium [Mass/Vol]8.5 mg/dLNormal8.5-10.1The [facility] Comment on above:Performed By: #### A1C #### [facility] [address] [place] [address] Dr. David MaganaChloride [Moles/Vol]99 mmol/GLuontf68-398Ydv [facility] Comment on above:Performed By: #### A1C #### [facility] [address] [place] [address] Dr. David MaganaCO2 [Moles/Vol]19.1 mmol/LCritically low21.0-32.0The [facility] HospitalComment on above:Performed By: #### A1C #### [facility] [address] [address] [address] David MaganaCreatinine [Mass/Vol]1.80 mg/dLCritically high0.70-1.30The [facility] HospitalComment on above:Performed By: #### A1C #### [facility] [address] [address] [address] David EvansGFR-AF QJGNXXIC74 mL/min/1.69d4Lcnobgwxmo low>=60The [facility] HospitalComment on above:Performed By: #### A1C #### [facility] [address] [place] [address] Dr. David EvansGFR-NON AF CPHBMTVC11 mL/min/1.15j1Iwtxzxnnrg low>=60The [facility] HospitalComment on above:Performed By: #### A1C #### [facility] [address] [place] [address] Dr. David MaganaGlobulin (S) [Mass/Vol]3.2 g/dLNormalThe [facility] HospitalComment on above:Performed By: #### A1C #### [facility] [address] [place] [address] Dr. David MaganaGlucose [Mass/Vol]287 mg/dLCritically ofmu57-641Hqj [facility] HospitalComment on above:Performed By: #### A1C #### [facility] [address] [place] [address] Dr. David MaganaPotassium [Moles/Vol]5.0 mmol/LNormal3.5-5.1The [facility] Comment on above:Performed By: #### A1C #### [facility] [address] [address] [address] David MaganaProtein [Mass/Vol]6.6 g/dLNormal6.4-8.2The [facility] Comment on above:Performed By: #### A1C #### [facility] [address] [address] [address] aDvid MaganaSodium [Moles/Vol]134 mmol/LCritically qit980-021Zgq [facility] HospitalComment on above:Performed By: #### A1C #### [facility] [address] [address] [address] David Gomez nitrogen [Mass/Vol]51.0 mg/dLCritically high7.0-18.0[facility] HospitalComment on above:Performed By: #### A1C #### [facility] [address] [place] [address] Dr. David Gomez nitrogen/Creatinine [Mass ratio]28.3 mg/mgCleveland Clinic Lutheran HospitalComment on above:Performed By: #### A1C #### [facility] [address] [place] [address] Dr. David HAWTHORNE [facility] MODENASAL CANNULACleveland Clinic Lutheran HospitalComment on above:Performed By: #### A1C #### [facility] [address] [place] [address] Dr. David Barraza TESTPositiveCleveland Clinic Lutheran HospitalComment on above: Performed By: #### A1C #### [facility] [address] [place] [address] Dr. David Marinelli excess Calc (Bld) [Moles/Vol]-9.0000 mmol/LCritically low -2.0-2.0The [facility] HospitalComment on above:Performed By: #### A1C #### [facility] [address] [place] [address] Dr. David Coleman [facility] Atrium Medical CenterComment on above: Performed By: #### A1C #### [facility] [address] [place] [address] Dr. David SarkarAPCleveland Clinic Lutheran HospitalComascension genesys hospital on above:Performed By: #### A1C #### [facility] [address] [place] [address] Dr. David OlsonTadapGQW2AbnhujZim03 Miller StreetComascension genesys hospital on above:Performed By: #### A1C #### [facility] [address] [place] [address] Dr. David CelisO3 (Bld) [Moles/Vol]18.4 mmol/LCritically low22.0-26.0The [facility] HospitalComment on above:Performed By: #### A1C #### [facility] [address] [place] [address] Dr. David MaganaLPM185 Gomez StreetComment on above:Performed By: #### A1C #### [facility] [address] [place] [address] Dr. David MaganaMINUTE Veterans Health AdministrationComment on above: Performed By: #### A1C #### [facility] [address] [place] [address] Dr. David MaganaOxygen (Bld) [Partial pressure]69.5 mm[Hg]Critically low 80.0-100.0The [facility] HospitalComment on above:Performed By: #### A1C #### [facility] [address] [place] [address] Dr. David MaganaOxygen saturation in Blood94.2 %Critically low95.0-100.0The [facility] HospitalComment on above:Performed By: #### A1C #### [facility] [address] [place] [address] Dr. David MaganaPCO229.6 mmHgCritically low35.0-45.0The [facility] HospitalComascension genesys hospital on above:Performed By: #### A1C #### [facility] [address] [place] [address] Dr. David MaganaPESt. John of God HospitalComascension genesys hospital on above:Performed By: #### A1C #### [facility] [address] [place] [address] Dr. David MaganapH (Bld)7.355 [pH]Normal7.350-7.450The [facility] HospitalComment on above:Performed By: #### A1C #### [facility] [address] [place] [address] Dr. David MaganaPIPNormalThe [facility] HospitalComment on above:Performed By: #### A1C #### [facility] [address] [place] [address] Dr. David MaganaGlenbeigh HospitalComment on above:Performed By: #### A1C #### [facility] [address] [place] [address] Dr. David George [facility] AndersonComasc[facility] genes[facility] hospital on above: Performed By: #### A1C #### [facility] [address] [place] [address] Dr. David Melowashington regional medical centerThe [facility] HospitalComment on above:Performed By: #### A1C #### [facility] [address] [place] [address] Dr. David MaganaPomerene HospitalComascension genesys hospital on above:Performed By: #### A1C #### [facility] [address] [place] [address] Dr. David MaganaOhioHealth Mansfield HospitalComment on above:Performed By: #### A1C #### [facility] [address] [place] [address] Dr. David Chau 31-50-3983Yjnslclzafh peptide B (Bld) [Mass/Vol]7047.0 pg/mLCritically high<=1,800.0The [facility] Rehabilitationment on above:Performed By: #### CVDTBH #### [facility] [address] [place] [address] Dr. David Sparrow BARRIE 3-6on [id number] [Catalytic activity/Vol]396 U/L Critically oqus00-626Zum [facility] Rehabilitationment on above:Performed By: #### MG, BMP, PHOS #### [facility] [address] [place] [address] Dr. David Vazquez.MB [Mass/Vol]2.94 ng/mLNormal<=3.60The [facility] Comment on above:Performed By: #### MG, BMP, PHOS #### [facility] [address] [place] [address] Dr. David CavazosOP11.1 pg/mLNormal4.0-76.1[facility] on above:Result Comment: CUT-OFF POINTS HAVE BEEN ESTABLISHED BASED ON THE FOURTH UNIVERSAL DEFINITIONS OF MYOCARDIAL INFARCTION. THE UPPER REFERENCE LIMIT (URL) OF TROPONIN, DEFINED THE 99TH PERCENTILE OF cTnI DISTRIBUTION IN A REFERENCE POPULATION, HAS BEEN CONFIRMED THE DECISION THRESHOLD FOR MN DIAGNOSIS.Performed By: #### MG, BMP, PHOS #### [facility] [address] [place] [address] Dr. David Vazquez [Catalytic activity/Vol]58 U/PYxewoi16-202Crw [facility] Rehabilitationment on above:Performed By: #### MG, BMP, PHOS #### [facility] [address] [place] [address] Dr. David Vazquez.MB [Mass/Vol]1.71 ng/mLNormal<=3.60[facility] Comment on above:Performed By: #### MG, BMP, PHOS #### [facility] [address] [place] [address] Dr. David MaganaHSTROP10.6 pg/mLNormal4.0-76.1[facility] HospitalComascension genesys hospital on above:Result Comment: CUT-OFF POINTS HAVE BEEN ESTABLISHED BASED ON THE FOURTH UNIVERSAL DEFINITIONS OF MYOCARDIAL INFARCTION. THE UPPER REFERENCE LIMIT (URL) OF TROPONIN, DEFINED THE 99TH PERCENTILE OF cTnI DISTRIBUTION IN A REFERENCE POPULATION, HAS BEEN CONFIRMED THE DECISION THRESHOLD FOR MN DIAGNOSIS.Performed By: #### MG, BMP, PHOS #### [facility] [address] [place] [address] Dr. David Frazier AUTO DIFFon [id number] #0.0 103/ulNormal0.0-0.1The [facility] HospitalComment on above:Performed By: #### MG, BMP, PHOS #### [facility] [address] [place] [address] Dr. David MaganaBasophils/100 WBC (Bld)0.2 %Normal0.2-2.0[facility] Comment on above:Performed By: #### MG, BMP, PHOS #### [facility] [address] [place] [address] Dr. David Colorado #0.0 103/ulNormal0.0-0.7The [facility] HospitalComment on above: Performed By: #### MG, BMP, PHOS #### [facility] [address] [place] [address] Dr. David Evansosinophils/100 WBC (Bld)0.2 %Critically low0.9-7.0The [facility] HospitalComment on above:Performed By: #### MG, BMP, PHOS #### [facility] [address] [place] [address] Dr. David Evansrythrocyte distribution width (RBC) [Ratio]13.2 %Tdoxdu72.0-15.0 The [facility] HospitalComment on above:Performed By: #### MG, BMP, PHOS #### [facility] [address] [place] [address] Dr. David MaganaHematocrit (Bld) [Volume fraction]43.8 %Itzyrw12.0-54.0The [facility] HospitalComment on above:Performed By: #### MG, BMP, PHOS #### [facility] [address] [place] [address] Dr. David MaganaHemoglobin (Bld) [Mass/Vol]14.5 g/hVCwazhl77.0-18.0The [facility] Rehabilitationment on above:Performed By: #### MG, BMP, PHOS #### [facility] [address] [place] [address] Dr. David Gerardo #0.15 10e3/ulCritically high0.00-0.03The [facility] Comment on above:Performed By: #### MG, BMP, PHOS #### [facility] [address] [place] [address] Dr. David Gerardo %1.3 %Critically high0.0-0.5The [facility] HospitalComment on above:Performed By: #### MG, BMP, PHOS #### [facility] [address] [place] [address] Dr. Yilan ChangLYMPH #0.5 103/ulCritically low1.2-3.8The [facility] Comment on above:Performed By: #### MG, BMP, PHOS #### [facility] [address] [place] [address] Dr. David Ramosmphocytes/100 WBC (Bld)3.8 %Critically low20.5-60.0The [facility] HospitalComment on above:Performed By: #### MG, BMP, PHOS #### [facility] [address] [place] [address] Dr. David Beasley DIFF REQNONormalThe [facility] HospitalComment on above: Performed By: #### MG, BMP, PHOS #### [facility] [address] [place] [address] Dr. David Faulkner (RBC) [Entitic mass]32.7 ftIyriva56.9-34.0The [facility] HospitalComment on above:Performed By: #### MG, BMP, PHOS #### [facility] [address] [place] [address] Dr. David Faulkner (RBC) [Mass/Vol]33.1 g/vFJfgokq14.9-35.2The [facility] HospitalComment on above:Performed By: #### MG, BMP, PHOS #### [facility] [address] [place] [address] Dr. David Faulkner (RBC) [Entitic vol]98.9 fLCritically high80.0-94.0The [facility] HospitalComment on above:Performed By: #### MG, BMP, PHOS #### [facility] [address] [place] [address] Dr. David Santos #0.7 103/ulNormal0.3-0.8The [facility] HospitalComment on above:Performed By: #### MG, BMP, PHOS #### [facility] [address] [place] [address] Dr. David Dickensocytes/100 WBC (Bld)5.7 %Normal1.7-12.0[facility] Comment on above:Performed By: #### MG, BMP, PHOS #### [facility] [address] [place] [address] Dr. David Hartley #10.4 103/ulCritically high1.4-6.5The [facility] Comment on above:Performed By: #### MG, BMP, PHOS #### [facility] [address] [place] [address] Dr. David Sargentutrophils/100 WBC (Bld)88.8 %Critically high43.0-75.0The [facility] HospitalComment on above:Performed By: #### MG, BMP, PHOS #### [facility] [address] [place] [address] Dr. David Ortegalet mean volume (Bld) [Entitic vol]11.0 fLNormal9.5-13.5The [facility] HospitalComment on above:Performed By: #### MG, BMP, PHOS #### [facility] [address] [place] [address] Dr. David MaganaPLT198 103/efRobean897-727Oks [facility] HospitalComment on above: Performed By: #### MG, BMP, PHOS #### [facility] [address] [place] [address] Dr. David MaganaRBC4.43 106/ulCritically low4.70-6.10The [facility] HospitalComment on above:Performed By: #### MG, BMP, PHOS #### [facility] [address] [place] [address] Dr. David MaganaWBC11.8 103/ulCritically high4.0-11.0The [facility] HospitalComment on above:Performed By: #### MG, BMP, PHOS #### [facility] [address] [place] [address] Dr. David MaganaCT HEAD WO CONon [id number] HEAD WO CONINDICATION: 82 years old; Male. [...] Electronically authenticated by: FRANCISCO ZELAYA Date: 2022-07-18 05:12NoKettering Memorial HospitalCovid-19 PCR (CVDTBH)on [id number]-CoV-2 (COVID-19) RNA SULTANA+probe Ql (Unsp spec)DetectedCritically abnormalNOT DETECTEDThe [facility] HospitalComment on above:Result Comment: This test is not yet approved or cleared by the [place] FDA. When there are no FDA-approved or cleared tests available, and other criteria are met, FDA can make tests available under an emergency access mechanism called an Emergency Use Authorization (EUA). The EUA for this test is supported by the Client Strategist of Health and Human Service's declaration that [...] longer be used).Performed By: #### CVDTBH #### [facility] [address] [place] [address] Dr. David Corrales-DIMERon 80-43-2025E-DIMER1.69 mg/L FEUCritically high<=0.59The [facility] on above:Performed By: #### CBC #### [facility] [address] [place] [address] Dr. David Corrales-DIMER COMMENTSSEE BELOWNoKettering Memorial HospitalComment on above:Result Comment: Increases in D-Dimer [...] generalized hospitalization. Performed By: #### CBC #### [facility] [address] [place] [address] Dr. David MaganaSOU[facility] GLUCOSEon 31-43-3307Nokrofg [Mass/Vol]329 mg/dL Critically fmct92-033OqbReg[facility] on above:Performed By: #### POCGLUC #### [facility] [address] [place] [address] Dr. David MaganaGlucose [Mass/Vol]354 mg/dLCritically ofnx61-797Gxl [facility] HospitalCom[facility] on above:Performed By: #### POCGLUC #### [facility] [address] [place] [address] Dr. David MaganaPROF 14(COMP METB)on 56-84-6489Dtmeooy [Mass/Vol]3.6 g/dLNormal 3.4-5.0The [facility] on above:Performed By: #### CVDTBH #### [facility] [address] [place] [address] Dr. David MaganaAlbumin/Globulin [Mass ratio]1.1 {ratio}NormalThe [facility] on above:Performed By: #### CVDTBH #### [facility] [address] [place] [address] Dr. David HartP [Catalytic activity/Vol]67 U/NKpbsyu29-598Dsg [facility] on above:Performed By: #### CVDTBH #### [facility] [address] [place] [address] Dr. David HartT [Catalytic activity/Vol]33 U/ZVdenlt03-92Cie [facility] on above:Performed By: #### CVDTBH #### [facility] [address] [address] [address] David MaganaAnion gap [Moles/Vol]23.5 mmol/LNormalThe [facility] Comment on above:Performed By: #### CVDTBH #### [facility] [address] [address] [address] David MaganaAST [Catalytic activity/Vol]13 U/LCritically dcn94-90Kwa [facility] HospitalComment on above:Performed By: #### CVDTBH #### [facility] [address] [place] [address] Dr. David MaganaBilirubin [Mass/Vol]0.6 mg/dLNormal0.2-1.0The [facility] Comment on above:Performed By: #### CVDTBH #### [facility] [address] [place] [address] Dr. David MaganaCalcium [Mass/Vol]8.4 mg/dLCritically low8.5-10.1The [facility] HospitalComment on above:Performed By: #### CVDTBH #### [facility] [address] [address] [address] David MaganaChloride [Moles/Vol]93 mmol/LCritically msd31-237Roi [facility] HospitalComment on above:Performed By: #### CVDTBH #### [facility] [address] [address] [address] David MaganaCO2 [Moles/Vol]17.9 mmol/LCritically low21.0-32.0The [facility] HospitalComment on above:Performed By: #### CVDTBH #### [facility] [address] [place] [address] Dr. David MaganaCreatinine [Mass/Vol]2.15 mg/dLCritically high0.70-1.30The [facility] HospitalComment on above:Performed By: #### CVDTBH #### [facility] [address] [place] [address] Dr. Hernandez ChangEGFR-AF VYCBOJZH35 mL/min/1.40w0Qrdqboivcr low>=60The [facility] HospitalComment on above:Performed By: #### CVDTBH #### [facility] [address] [address] [address] David Mchugh-NON AF UXSTYRPK37 mL/min/1.38e4Utwpsabwem low>=60The [facility] HospitalComment on above:Performed By: #### CVDTBH #### [facility] [address] [address] [address] David MaganaGlobulin (S) [Mass/Vol]3.2 g/dLNormalThe [facility] HospitalComment on above:Performed By: #### CVDTBH #### [facility] [address] [address] [address] David MaganaGlucose [Mass/Vol]345 mg/dLCritically asxf18-221Afj [facility] HospitalComment on above:Performed By: #### CVDTBH #### [facility] [address] [place] [address] Dr. David MaganaPotassium [Moles/Vol]5.4 mmol/LCritically high3.5-5.1The [facility] HospitalComment on above:Performed By: #### CVDTBH #### [facility] [address] [place] [address] Dr. David MaganaPerformed By: #### K #### [facility] [address] [place] [address] Dr. David MaganaProtein [Mass/Vol]6.8 g/dLNormal6.4-8.2The [facility] Comment on above:Performed By: #### CVDTBH #### [facility] [address] [place] [address] Dr. David MaganaSodium [Moles/Vol]129 mmol/LCritically fab093-815Wvc [facility] HospitalComment on above:Performed By: #### CVDTBH #### [facility] [address] [place] [address] Dr. David MaganaUrea nitrogen [Mass/Vol]65.0 mg/dLCritically high7.0-18.0The [facility] HospitalComment on above:Performed By: #### CVDTBH #### [facility] [address] [address] [address] David Gomez nitrogen/Creatinine [Mass ratio]30.2 mg/mgNormalThWilson Memorial HospitalComment on above:Performed By: #### CVDTBH #### [facility] [address] [address] [address] David Guerin RANDOM W/MICROSCOPICon 18-53-0698GZGASNRMERJA SEENNormalNONE SEENAultman HospitalComascension genesys hospital on above:Performed By: #### MG, BMP, PHOS #### [facility] [address] [address] [address] David Gallegosirubin Ql (U)NegativeNormalNEGATIVEAultman Hospital Comment on above:Performed By: #### MG, BMP, PHOS #### [facility] [address] [place] [address] Dr. David HerbertNONE SEENNormalNONE SEENRegency Hospital [facility] on above:Performed By: #### MG, BMP, PHOS #### [facility] [address] [address] [address] David Poncearity (U)CLEARNormalCLEARRegency Hospital Cleveland East on above: Performed By: #### MG, BMP, PHOS #### [facility] [address] [address] [address] David Briceño (U)LT. YELLOWNormalYELLOWAultman HospitalComment on above:Performed By: #### MG, BMP, PHOS #### [facility] [address] [address] [address] David MaganaCrystals LM Nom (Urine sed)NONE SEENNormalNONE SEENAultman HospitalComascension genesys hospital on above:Performed By: #### MG, BMP, PHOS #### [facility] [address] [address] [address] Hernandez ChangEpithelial cells LM Ql (Urine sed)RARENormalNONE SEEN /RAREAultman HospitalComascension genesys hospital on above:Performed By: #### MG, BMP, PHOS #### [facility] [address] [address] [address] David MaganaGlucose Ql (U)1000 mg/dlAbnormalNEGKindred Hospital Lima Comment on above:Performed By: #### MG, BMP, PHOS #### [facility] [address] [address] [address] aDvid MaganaHemoglobin Ql (U)NegativeNormalNEGATIVEAultman Hospital Comment on above:Performed By: #### MG, BMP, PHOS #### [facility] [address] [address] [address] David MaganaKetones Ql (U)15 mg/dlAbnoalNEGKindred Hospital Lima Comment on above:Performed By: #### MG, BMP, PHOS #### [facility] [address] [place] [address] Dr. David MaganaLEUKOCYTESNegativeNormalNEGKindred Hospital LimaComment on above:Performed By: #### MG, BMP, PHOS #### [facility] [address] [address] [address] David MaganaMUCOUSNONE SEENNormalNONE SEENAultman HospitalComment on above:Performed By: #### MG, BMP, PHOS #### [facility] [address] [address] [address] David MaganaNitrite Ql (U)NegativeNormalNEGATIVEAultman HospitalComment on above:Performed By: #### MG, BMP, PHOS #### [facility] [address] [address] [address] David MaganapH (U)5.5 [pH]Normal5-9The [facility] HospitalComment on above: Performed By: #### MG, BMP, PHOS #### [facility] [address] [place] [address] Dr. David MaganaRBCNONE SEENAbnormal0-2Aultman HospitalComment on above: Performed By: #### MG, BMP, PHOS #### [facility] [address] [place] [address] Dr. David MaganaSPEC GRAVITY<=1.659Mkonablt7.005-<=1.025The [facility] Comment on above:Performed By: #### MG, BMP, PHOS #### [facility] [address] [place] [address] Dr. David Guerin PROTEINNegativeNormalNEGATIVE/ TRACEThe [facility] Comment on above:Performed By: #### MG, BMP, PHOS #### [facility] [address] [place] [address] Dr. David Barnesbilinogen Qn (U)0.2 {Dionna'U}/dLNormal0.2 - 1.0The [facility] HospitalComment on above:Performed By: #### MG BMP, PHOS #### [facility] [address] [place] [address] Dr. David MaganaWBCNONKee SEENNormalNONE SEENThe [facility] HospitalComment on above: Performed By: #### MG, BMP, PHOS #### [facility] [address] [place] [address] Dr. David MaganaXR CHEST 1 Von [id number] CHEST 1 VEXAM: XR CHEST 1 V [...] Electronically authenticated by: Yefri DWYER Date: 2022-07-18 00:09[facility] HospitalCARDIAC BARRIE ADMITon [id number] [Catalytic activity/Vol]61 U/LQtltym54-158Tve [facility] HospitalComment on above:Performed By: #### CBC #### [facility] [address] [place] [address] Dr. David Vazquez.MB [Mass/Vol]1.84 ng/mLNormal<=3.60The [facility] Comment on above:Performed By: #### CBC #### [facility] [address] [place] [address] Dr. David DacostaTROP9.4 pg/mLNormal4.0-76.1The [facility] HospitalComment on above:Result Comment: CUT-OFF POINTS HAVE BEEN ESTABLISHED BASED ON THE FOURTH UNIVERSAL DEFINITIONS OF MYOCARDIAL INFARCTION. THE UPPER REFERENCE LIMIT (URL) OF TROPONIN, DEFINED THE 99TH PERCENTILE OF cTnI DISTRIBUTION IN A REFERENCE POPULATION, HAS BEEN CONFIRMED THE DECISION THRESHOLD FOR MN DIAGNOSIS.Performed By: #### CBC #### [facility] [address] [place] [address] Dr. David FioreO533 ng/mLCritically sjar95-54KofAultman HospitalComment on above:Performed By: #### CBC #### [facility] [address] [place] [address] Dr. David Frazier AUTO DIFFon [id number] #0.0 103/ulNormal0.0-0.1The [facility] HospitalComment on above:Performed By: #### MG, BMP, PHOS #### [facility] [address] [place] [address] Dr. David MaganaBasophils/100 WBC (Bld)0.2 %Normal0.2-2.0[facility] Comment on above:Performed By: #### MG, BMP, PHOS #### [facility] [address] [place] [address] Dr. David [place] #0.0 103/ulNormal0.0-0.7The [facility] HospitalComment on above: Performed By: #### MG, BMP, PHOS #### [facility] [address] [place] [address] Dr. David Evansosinophils/100 WBC (Bld)0.1 %Critically low0.9-7.0Aultman HospitalComment on above:Performed By: #### MG, BMP, PHOS #### [facility] [address] [place] [address] Dr. Yilan ChangErythrocyte distribution width (RBC) [Ratio]13.2 %Mbibqb56.0-15.0 The [facility] HospitalComment on above:Performed By: #### MG, BMP, PHOS #### [facility] [address] [place] [address] Dr. David MaganaHematocrit (Bld) [Volume fraction]43.1 %Pebgnf99.0-54.0The [facility] HospitalComment on above:Performed By: #### MG, BMP, PHOS #### [facility] [address] [place] [address] Dr. David MaganaHemoglobin (Bld) [Mass/Vol]14.5 g/sVHbyzqa20.0-18.0The [facility] HospitalComment on above:Performed By: #### MG, BMP, PHOS #### [facility] [address] [place] [address] Dr. David Gerardo #0.14 10e3/ulCritically high0.00-0.03[facility] Comment on above:Performed By: #### MG, BMP, PHOS #### [facility] [address] [place] [address] Dr. David Gerardo %1.2 %Critically high0.0-0.5ThWilson Memorial HospitalComment on above:Performed By: #### MG, BMP, PHOS #### [facility] [address] [place] [address] Dr. David Patiño #0.4 103/ulCritically low1.2-3.8The [facility] Comment on above:Performed By: #### MG, BMP, PHOS #### [facility] [address] [place] [address] Dr. David Sotohocytes/100 WBC (Bld)3.4 %Critically low20.5-60.0The [facility] HospitalComment on above:Performed By: #### MG, BMP, PHOS #### [facility] [address] [place] [address] Dr. David DennisonUAL DIFF REQNONormalThe [facility] HospitalComment on above: Performed By: #### MG, BMP, PHOS #### [facility] [address] [place] [address] Dr. David Faulkner (RBC) [Entitic mass]33.3 oaDhwxiq89.9-34.0The [facility] HospitalComment on above:Performed By: #### MG, BMP, PHOS #### [facility] [address] [place] [address] Dr. David Faulkner (RBC) [Mass/Vol]33.6 g/zOIuookm79.9-35.2The [facility] HospitalComment on above:Performed By: #### MG, BMP, PHOS #### [facility] [address] [place] [address] Dr. David Faulkner (RBC) [Entitic vol]98.9 fLCritically high80.0-94.0The [facility] HospitalComment on above:Performed By: #### MG, BMP, PHOS #### [facility] [address] [place] [address] Dr. David Santos #1.1 103/ulCritically high0.3-0.8ThWilson Memorial Hospital Comment on above:Performed By: #### MG, BMP, PHOS #### [facility] [address] [place] [address] Dr. David Dickensocytes/100 WBC (Bld)8.9 %Normal1.7-12.0[facility] Comment on above:Performed By: #### MG, BMP, PHOS #### [facility] [address] [place] [address] Dr. David Hartley #10.3 103/ulCritically high1.4-6.5ThWilson Memorial Hospital Comment on above:Performed By: #### MG, BMP, PHOS #### [facility] [address] [place] [address] Dr. David Sargentutrophils/100 WBC (Bld)86.2 %Critically high43.0-75.0The [facility] HospitalComment on above:Performed By: #### MG, BMP, PHOS #### [facility] [address] [place] [address] Dr. David Ortegalet mean volume (Bld) [Entitic vol]11.1 fLNormal9.5-13.5The [facility] HospitalComment on above:Performed By: #### MG, BMP, PHOS #### [facility] [address] [place] [address] Dr. David MaganaPLT229 103/adFjmqou527-605Weo [facility] HospitalComment on above: Performed By: #### MG, BMP, PHOS #### [facility] [address] [place] [address] Dr. David MaganaRBC4.36 106/ulCritically low4.70-6.10The [facility] HospitalComment on above:Performed By: #### MG, BMP, PHOS #### [facility] [address] [place] [address] Dr. David MaganaWBC11.9 103/ulCritically high4.0-11.0The [facility] HospitalComment on above:Performed By: #### MG, BMP, PHOS #### [facility] [address] [place] [address] Dr. David MaganaPROBrian CHEM 8 (BAS METB)on 06-85-7604Wecxr gap [Moles/Vol]26.5 mmol/LNormalThe [facility] HospitalComment on above:Performed By: #### CBC #### [facility] [address] [place] [address] Dr. David MaganaCalcium [Mass/Vol]8.2 mg/dLCritically low8.5-10.1The [facility] HospitalComment on above:Performed By: #### CBC #### [facility] [address] [place] [address] Dr. David MaganaChloride [Moles/Vol]89 mmol/LCritically mul49-207Jbu [facility] HospitalComment on above:Performed By: #### CBC #### [facility] [address] [place] [address] Dr. David MaganaCO2 [Moles/Vol]14.5 mmol/LCritically low21.0-32.0The [facility] HospitalComment on above:Performed By: #### CBC #### [facility] [address] [place] [address] Dr. David MaganaCreatinine [Mass/Vol]2.78 mg/dLCritically high0.70-1.30The [facility] HospitalComment on above:Performed By: #### CBC #### [facility] [address] [address] [address] David EvansGFR-AF DPJJVJVA25 mL/min/1.67r4Rmeyhjlxxq low>=60The [facility] HospitalComascension genesys hospital on above:Performed By: #### CBC #### [facility] [address] [place] [address] Dr. David EvansGFR-NON AF EFVUXSYC98 mL/min/1.06f0Gankhqdpcy low>=60The [facility] HospitalComascension [facility] hospital on above:Performed By: #### CBC #### [facility] [address] [place] [address] Dr. David MaganaGlucose [Mass/Vol]442 mg/dLCritically nmaz61-871Uzk [facility] HospitalCom[facility] on above:Performed By: #### CBC #### [facility] [address] [place] [address] Dr. David MaganaPotassium [Moles/Vol]6.0 mmol/LCritically high3.5-5.1The [facility] HospitalComascension genes[facility] hospital on above:Performed By: #### CBC #### [facility] [address] [place] [address] Dr. David MaganaSodium [Moles/Vol]124 mmol/LCritically kcu511-988Xup [facility] HospitalComasc[facility] on above:Performed By: #### CBC #### [facility] [address] [place] [address] Dr. David MaganaUrea nitrogen [Mass/Vol]73.0 mg/dLCritically high7.0-18.0The [facility] HospitalComment on above:Performed By: #### CBC #### [facility] [address] [place], [place] [address] Dr. David MaganaUrea nitrogen/Creatinine [Mass ratio]26.3 mg/mgNormalThe [facility] HospitalComment on above:Performed By: #### CBC #### [facility] [address] [place] [address] Dr. David MaganaCovid-19 PCR (CVDTBH)on 64-62-2501KBGI-CoV-2 (COVID-19) RNA SULTANA+probe Ql (Unsp spec)DetectedCritically abnormalNOT DETECTEDThe [facility] HospitalComasc[facility] on above:Result Comment: This test is not yet approved or cleared by the [place] FDA. When there are no FDA-approved or cleared tests available, and other criteria are met, FDA can make tests available under an emergency access mechanism called an Emergency Use Authorization (EUA). The EUA for this test is supported by the [place] of Health and Human Service's (HHS's) declaration [...] Performed By: #### MG, BMP, PHOS #### [facility] [address] [place] [address] Dr. Hernandez ChangECHOCARDIO M/2D COMPLETEon [id number] M/2D COMPLETE Patient: NADIR BTEH Exam Date: 07/01/2022 : 1940 Gender:M Ordering : DR CLARIBEL CISNEROS M.D. Admission #: [id number] Family : DR VAN YOUSSEF . Order #: [id number] CLICK HERE TO VIEW EXAM ECHOCARDIOGRAM REPORT [...] by: Rohini Traylor M.D. on 07/01/2022 at 16:27NoKettering Memorial HospitalCovid-19 PCR (CVDTBH)on 44-73-1348GZIC-CoV-2 (COVID-19) RNA SULTANA+probe Ql (Unsp spec)Not detectedNormalNOT DETECTEDThe [facility] HospitalComment on above: Result Comment: When diagnostic [...] for this test is supported by the [place] of Health and Human Service's declaration that [...] longer be used).Performed By: #### CVDTBH #### [facility] [address] [place] [address] Dr. David Valdes [facility] [id number] CREAT14.70 mg/dLCritically low 20.00-300.00The [facility] HospitalComment on above:Performed By: #### MGERICK, PHOS #### [facility] [address] [address] [address] David MaganaGLYCOHEMOGLOBIN A1Con 57-68-6589SVM RECOMMENDATIONSEE BELOWNormal The [facility] HospitalComment on above:Result Comment: ADA RECOMMENDED LIMIT 4.0 - 6.0 ADA THERAPEUTIC TARGET < 7.0 ACTION SUGGESTED > 7.0Performed By: #### A1C #### [facility] [address] [address] [address] David MaganaGlucose [Mass/Vol]209 mg/dLNormalThe [facility] HospitalComment on above:Performed By: #### A1C #### [facility] [address] [place] [address] Dr. David MaganaHbA1c (Bld) [Mass fraction]8.9 %Critically high4.5-6.2The [facility] HospitalComment on above:Performed By: #### A1C #### [facility] [address] [address] [address] David MaganaMAGNESIUMon 70-73-0038Lemsdvvsi [Mass/Vol]2.3 mg/dLNormal1.8-2.4 The [facility] HospitalComment on above:Performed By: #### MG BMP, PHOS #### [facility] [address] [place] [address] Dr. David MaganaPHOSPHORUSon 09-80-9414Nmcjqhlbc [Mass/Vol]3.5 mg/dLNormal2.6-4.7 The [facility] HospitalComment on above:Performed By: #### MG BMP, PHOS #### [facility] [address] [place] [address] Dr. David MaganaPROF CHEM 8 (BAS METB)on 20-04-7659Xaxnb gap [Moles/Vol]10.6 mmol/LNormalThe [facility] HospitalComment on above:Performed By: #### MG, BMP, PHOS #### [facility] [address] [place] [address] Dr. David MaganaCalcium [Mass/Vol]9.2 mg/dLNormal8.5-10.1The [facility] Comment on above:Performed By: #### MG, BMP, PHOS #### [facility] [address] [place] [address] Dr. David MaganaChloride [Moles/Vol]102 mmol/CXdosoz98-813Rzw [facility] Comment on above:Performed By: #### MG, BMP, PHOS #### [facility] [address] [place] [address] Dr. David MaganaCO2 [Moles/Vol]30.1 mmol/TQzkiza55.0-32.0The [facility] Comment on above:Performed By: #### MG, BMP, PHOS #### [facility] [address] [place] [address] Dr. David MaganaCreatinine [Mass/Vol]1.70 mg/dLCritically high0.70-1.30The [facility] HospitalComment on above:Performed By: #### MG, BMP, PHOS #### [facility] [address] [place] [address] Dr. David EvansGFR-AF PCGKMYUM59 mL/min/1.66g3Xqvbnncvpx low>=60The [facility] HospitalComment on above:Performed By: #### MG, BMP, PHOS #### [facility] [address] [place] [address] Dr. David EvansGFR-NON AF XGGNYWGE44 mL/min/1.02v9Apotxsqjkq low>=60The [facility] HospitalComment on above:Performed By: #### MG, BMP, PHOS #### [facility] [address] [place] [address] Dr. David MaganaGlucose [Mass/Vol]197 mg/dLCritically ugqb33-749Meo [facility] HospitalComment on above:Performed By: #### MG, BMP, PHOS #### [facility] [address] [place] [address] Dr. David MaganaPotassium [Moles/Vol]4.7 mmol/LNormal3.5-5.1The [facility] Comment on above:Performed By: #### MG BMP, PHOS #### [facility] [address] [address] [address] David MaganaSodium [Moles/Vol]138 mmol/IHjauhy426-680Hdo [facility] Comment on above:Performed By: #### MG, BMP, PHOS #### [facility] [address] [address] [address] David MaganaUrea nitrogen [Mass/Vol]25.0 mg/dLCritically high7.0-18.0The [facility] HospitalComment on above:Performed By: #### MG BMP, PHOS #### [facility] [address] [place] [address] Dr. David Gomez nitrogen/Creatinine [Mass ratio]14.7 mg/mgNormalThe [facility] HospitalComment on above:Performed By: #### MG, BMP, PHOS #### [facility] [address] [place] [address] Dr. David MaganaPROTEIN RAND URINEon [id number] PROT<5.0Normal<=11.9The [facility] HospitalComment on above:Performed By: #### CREAU, PROTU #### [facility] [address] [place] [address] Dr. David MaganaBILIRUBIN CONJUGATED (DIRECT)on [id number], CONJUGATED0.1 mg/dLNormal0.0-0.2The [facility] HospitalComment on above:Performed By: #### POCGLUC #### [facility] [address] [place] [address] Dr. David KovacsC AUTO DIFFon [id number] #0.1 103/ulNormal0.0-0.1The [facility] HospitalComment on above:Performed By: #### CVDTBH #### [facility] [address] [place] [address] Dr. David MaganaBasophils/100 WBC (Bld)0.7 %Normal0.2-2.0The [facility] Comment on above:Performed By: #### CVDTBH #### [facility] [address] [place] [address] Dr. David Colorado #0.5 103/ulNormal0.0-0.7The [facility] HospitalComment on above: Performed By: #### CVDTBH #### [facility] [address] [place] [address] Dr. David Evansosinophils/100 WBC (Bld)6.7 %Normal0.9-7.0The [facility] Comment on above:Performed By: #### NEEMATBH #### [facility] [address] [place] [address] Dr. David Evansrythrocyte distribution width (RBC) [Ratio]13.6 %Aptlmk13.0-15.0 The [facility] HospitalComment on above:Performed By: #### NEEMATBH #### [facility] [address] [place] [address] Dr. David MaganaHematocrit (Bld) [Volume fraction]45.9 %Jautsl51.0-54.0The [facility] HospitalComment on above:Performed By: #### NEEMATBH #### [facility] [address] [place] [address] Dr. David MaganaHemoglobin (Bld) [Mass/Vol]14.9 g/uUWiykjk94.0-18.0The [facility] HospitalComment on above:Performed By: #### CVDTBH #### [facility] [address] [place] [address] Dr. David Gerardo #0.03 10e3/ulNormal0.00-0.03The [facility] HospitalComment on above:Performed By: #### CVDTBH #### [facility] [address] [place] [address] Dr. David Gerardo %0.4 %Normal0.0-0.5The [facility] HospitalComment on above: Performed By: #### CVDTBH #### [facility] [address] [address] [address] David Patiño #1.0 103/ulCritically low1.2-3.8The [facility] Comment on above:Performed By: #### CVDTBH #### [facility] [address] [address] [address] David Ramosmphocytes/100 WBC (Bld)13.4 %Critically low20.5-60.0The [facility] HospitalComment on above:Performed By: #### CVDTBH #### [facility] [address] [address] [address] David DennisonUAL DIFF REQNONormalThe [facility] HospitalComment on above: Performed By: #### CVDTBH #### [facility] [address] [place] [address] Dr. David Torres (RBC) [Entitic mass]33.8 lpFeymnf08.9-34.0The [facility] HospitalComment on above:Performed By: #### CVDTBH #### [facility] [address] [place] [address] Dr. David Faulkner (RBC) [Mass/Vol]32.5 g/uGMhbdbr64.9-35.2The [facility] HospitalComment on above:Performed By: #### CVDTBH #### [facility] [address] [place] [address] Dr. David Faulkner (RBC) [Entitic vol]104.1 fLCritically high80.0-94.0The [facility] HospitalComment on above:Performed By: #### CVDTBH #### [facility] [address] [place] [address] Dr. David Santos #0.8 103/ulNormal0.3-0.8The [facility] HospitalComment on above:Performed By: #### CVDTBH #### [facility] [address] [place] [address] Dr. David Dickensocytes/100 WBC (Bld)10.2 %Normal1.7-12.0[facility] Comment on above:Performed By: #### CVDTBH #### [facility] [address] [place] [address] Dr. David Hartley #5.1 103/ulNormal1.4-6.5The [facility] HospitalComment on above:Performed By: #### CVDTBH #### [facility] [address] [place] [address] Dr. David Sargentutrophils/100 WBC (Bld)68.6 %Dznehh91.0-75.0The [facility] HospitalComment on above:Performed By: #### CVDTBH #### [facility] [address] [place] [address] Dr. David Vigil mean volume (Bld) [Entitic vol]11.3 fLNormal9.5-13.5The [facility] HospitalComment on above:Performed By: #### CVDTBH #### [facility] [address] [place] [address] Dr. David MaganaPLT185 103/nfKhlsxv358-556Fht [facility] HospitalComment on above: Performed By: #### CVDTBH #### [facility] [address] [place] [address] Dr. David MaganaRBC4.41 106/ulCritically low4.70-6.10The [facility] HospitalComment on above:Performed By: #### CVDTBH #### [facility] [address] [place] [address] Dr. David MaganaWBC7.5 103/ulNormal4.0-11.0The [facility] HospitalComment on above: Performed By: #### CVDTBH #### [facility] [address] [place] [address] Dr. David Neal T3on 60-71-7466ESXW T32.17 pg/mlLCritically low2.18-3.98The [facility] HospitalComment on above:Performed By: #### POCGLUC #### [facility] [address] [place] [address] Dr. David TrujilloID PROFILEon 59-05-1623UPOQ-HDL RATIO NORMSMercy Health Kings Mills HospitalComment on above:Result Comment: 3.3 - 4.4 LOW RISK 4.4 - 7.1 AVERAGE RISK 7.1 - 11.0 MODERATE RISK >11.0 HIGH RISKPerformed By: #### POCGLUC #### [facility] [address] [address] [address] David MaganaCholesterol [Mass/Vol]234 mg/dLCritically high<=200The [facility] HospitalComasc[facility] on above:Performed By: #### POCGLUC #### [facility] [address] [address] [address] David MaganaCholesterol in HDL [Mass/Vol]58 mg/lKKvtbmj82-35XhlRegency Hospital [facility] East on above:Performed By: #### POCGLUC #### [facility] [address] [address] [address] David MaganaCholesterol in LDL [Mass/Vol]129.0 mg/dLCleveland Clinic Lutheran HospitalComascension genesys hospital on above:Performed By: #### POCGLUC #### [facility] [address] [address] [address] David Merinoesterdanna.total/Cholesterol in HDL [Mass ratio]4.0 {ratio} NormalRegency Hospital [facility] on above:Performed By: #### POCGLUC #### [facility] [address] [address] [address] David Dee NORMAL> or = 60 mg/dl - LOW CARDIOVASCULAR RISK <40 mg/dl - HIGH CARDIOVASCULAR RISKCleveland Clinic Lutheran HospitalComascension genesys hospital on above:Performed By: #### POCGLUC #### [facility] [address] [address] [address] David Kebede CALC NORMALSEE [facility] HospitalComasc[facility] genesys hospital on above:Result Comment: <100 mg/dl OPTIMAL 100 - 129 mg/dl NEAR OR ABOVE OPTIMAL 130 - 159 mg/dl BORDERLINE HIGH 160 - 189 mg/dl HIGH >190 mg/dl VERY HIGH Performed By: #### POCGLUC #### [facility] [address] [address] [address] David MaganaTriglyceride [Mass/Vol]235 mg/dLCritically high<=150The [facility] HospitalComment on above:Performed By: #### POCGLUC #### [facility] [address] [address] [address] David MaganaVLDL CALC47.0 mg/dLNormalThe [facility] HospitalComment on above: Performed By: #### POCGLUC #### [facility] [address] [address] [address] David MaganaPROF 14(COMP METB)on 29-04-4936Gijkwmk [Mass/Vol]3.2 g/dL Critically low3.4-5.0The [facility] HospitalComment on above:Performed By: #### POCGLUC #### [facility] [address] [place] [address] Dr. David MaganaAlbumin/Globulin [Mass ratio]0.9 {ratio}NormalThe [facility] HospitalComment on above:Performed By: #### POCGLUC #### [facility] [address] [address] [address] David Oates [Catalytic activity/Vol]77 U/QCcktwn14-852Pbt [facility] Rehabilitationment on above:Performed By: #### POCGLUC #### [facility] [address] [address] [address] David Ag [Catalytic activity/Vol]24 U/FQwjyqj71-23Mcb [facility] HospitalComment on above:Performed By: #### POCGLUC #### [facility] [address] [address] [address] David Camargo gap [Moles/Vol]13.1 mmol/LNormalThe [facility] on above:Performed By: #### POCGLUC #### [facility] [address] [address] [address] David MaganaAST [Catalytic activity/Vol]13 U/LCritically esj35-28Tww [facility] Rehabilitationment on above:Performed By: #### POCGLUC #### [facility] [address] [address] [address] David MaganaBilirubin [Mass/Vol]0.3 mg/dLNormal0.2-1.0The [facility] Comment on above:Performed By: #### POCGLUC #### [facility] [address] [place] [address] Dr. David MaganaCalcium [Mass/Vol]8.8 mg/dLNormal8.5-10.1The [facility] Comment on above:Performed By: #### POCGLUC #### [facility] [address] [address] [address] David MaganaChloride [Moles/Vol]106 mmol/YQslmty91-225Jsu [facility] Comment on above:Performed By: #### POCGLUC #### [facility] [address] [place] [address] Dr. David MaganaCO2 [Moles/Vol]27.5 mmol/OLxabil99.0-32.0The [facility] Comment on above:Performed By: #### POCGLUC #### [facility] [address] [address] [address] David MaganaCreatinine [Mass/Vol]1.62 mg/dLCritically high0.70-1.30The [facility] HospitalComment on above:Performed By: #### POCGLUC #### [facility] [address] [place] [address] Dr. David EvansGFR-AF IAWDYQXJ59 mL/min/1.02q3Shxnmlsssy low>=60The [facility] HospitalComment on above:Performed By: #### POCGLUC #### [facility] [address] [address] [address] David EvansGFR-NON AF PXOEBQON66 mL/min/1.87j2Tyooiyuejw low>=60The [facility] HospitalComment on above:Performed By: #### POCGLUC #### [facility] [address] [place] [address] Dr. David MaganaGlobulin (S) [Mass/Vol]3.4 g/dLNormalThe [facility] HospitalComment on above:Performed By: #### POCGLUC #### [facility] [address] [address] [address] David MaganaGlucose [Mass/Vol]206 mg/dLCritically yiie34-766Fbv [facility] HospitalComment on above:Performed By: #### POCGLUC #### [facility] [address] [address] [address] David MaganaPotassium [Moles/Vol]4.6 mmol/LNormal3.5-5.1The [facility] Comment on above:Performed By: #### POCGLUC #### [facility] [address] [address] [address] David MaganaProtein [Mass/Vol]6.6 g/dLNormal6.4-8.2The [facility] Comment on above:Performed By: #### POCGLUC #### [facility] [address] [place] [address] Dr. David MaganaSodium [Moles/Vol]142 mmol/JOoqnyq313-737Xwp [facility] Comment on above:Performed By: #### POCGLUC #### [facility] [address] [address] [address] David MaganaUrea nitrogen [Mass/Vol]26.0 mg/dLCritically high7.0-18.0The [facility] HospitalComment on above:Performed By: #### POCGLUC #### [facility] [address] [address] [address] David MaganaUrea nitrogen/Creatinine [Mass ratio]16.0 mg/mgNormalThe [facility] HospitalComment on above:Performed By: #### POCGLUC #### [facility] [address] [address] [address] David Montes4on 25-55-4980V6 [Mass/Vol]7.70 ug/dLNormal4.50-12.10The [facility] HospitalComment on above:Performed By: #### POCGLUC #### [facility] [address] [address] [address] David SaundersHolaura 66-65-1558NCD8.187 uIU/mLNormal0.358-3.740[facility] HospitalComment on above:Performed By: #### POCGLUC #### [facility] [address] [place] [address] Dr. David SaundersTriHealth McCullough-Hyde Memorial HospitalComment on above: Result Comment: <0.34 UIU/ml HYPERTHYROID 0.34-5.60 UIU/ml EUTHYROID >5.60 UIU/ml HYPOTHYROIDPerformed By: #### POCGLUC #### [facility] [address] [place] [address] Dr. David Magana Vital Signs Date TimeVital SignValuePerforming WabkqljeuKzamurnc66-22-4817 10:36-0400Body pmejgd825.7 cmBarrie Montoya MD Work Phone: [phone] [place], [place] [address]Abkwiaodmu16-09-5994 10:36-0400Body mass index (BMI) [Ratio]27.22 kg/m2Barrie Montoya MD Work Phone: [phone] [place], [place] [address]Ynhawabywm66-43-3458 10:36-0400Body xvoslm80.19 kgBarrie Montoya MD Work Phone: [facility] CenterAcukwinvmn96-77-8246 11:28-0400Body agiyrk252.9 cmBlaise Brown DPM Work Phone: [facility] CenterDedynzdisc90-16-3480 11:28-0400Body mass index (BMI) [Ratio]25.09 kg/a5ZjjzmrgiBlaise Chicas DPM Work Phone: [phone] [place], [place] [address]Qvqwiidwgl94-18-8788 11:28-0400Body otkopf11.92 kgJossholgregg Chicas DPM Work Phone: [address] [address]Jausvmwxsk08-36-4026 11:28-0400Respiratory rate16 /minBlaise Chicas DPM Work Phone: [facility] CenterTtfgnsrqvt07-15-7993 16:32-0400Body yqorno821.9 cmMony Herron NP Work Phone: [facility] CenterBvlbddcode90-12-3982 16:32-0400Body mass index (BMI) [Ratio]25.09 kg/x2Cfpnpshtresa Herron [employer] Work Phone: [facility] CenterZvyrcaqnom79-36-8753 16:32-0400Body whrrqu74.92 kgFetrsea Herron [employer] Work Phone: [facility] CenterKarptmptkr52-67-4065 11:05-0400Body xkidad057.9 cmNicholas Brown DPM Work Phone: [facility] CenterXpyeyemdbw47-18-6840 11:05-0400Body mass index (BMI) [Ratio]24.95 kg/a0Paqzcmzn Brown DPM Work Phone: [facility] CenterUakqhdvvec01-28-5437 11:05-0400Body ebfpca33.46 kgNicholas Brown DPM Work Phone: [facility] CenterCxkpjirqlj25-26-8523 11:05-0400Respiratory rate16 /minNicholas Brown DPM Work Phone: [facility] CenterRevhfyvqfs71-78-7210 12:58-0400Body gmasde299.9 cmBarrie Montoya MD Work Phone: [facility] CenterXijhxdoolh41-81-1625 12:58-0400Body mass index (BMI) [Ratio]24.95 kg/m2Mark Jan GUSTAFSON Work Phone: [facility] CenterMvdwxdhoih08-30-7237 12:58-0400Body hljzzi09.46 kgBarrie Montoya MD Work Phone: [facility] CenterAjuajypwra44-04-3583 08:56-0400Body wcyeie271.9 cmNicholas Brown DPM Work Phone: [facility] CenterMursaxowem04-59-3463 08:56-0400Body mass index (BMI) [Ratio]39.2 kg/j8Bjcvcufo Brown DPM Work Phone: [facility] CenterZygmxhkxvj03-89-2113 08:56-0400Body dlzned007.09 kgNicholas Brown DPM Work Phone: [facility] CenterJtxynthvnl31-04-6013 08:56-0400Respiratory rate18 /minNicholas Brown DPM Work Phone: [facility] CenterAlcadukhgp98-69-8953 08:44-0500Diastolic blood mm[Hg]MARQUIS NKANSAH-AMANKRA [facility]01-20-2025 08:44-0500Heart rate78 /minKWABENA NKANSAH-AMANKRA [facility]01-20-2025 08:44-0500Systolic blood orvodmfc028 mm[Hg]MARQUIS NKANSAH-AMANKRA [facility]01-16-2025 08:28-0500Body svuurz712.9 cmNicumm Brown DPM Work Phone: [facility] CenterBldddgxotp07-26-9050 08:28-0500Body mass index (BMI) [Ratio]39.2 kg/b0Xhqnejev Brown DPM Work Phone: [phone]-[facility] CenterPbqtgilctu87-72-0760 08:28-0500Body .09 kgNicumm Brown DPM Work Phone: [facility] CenterNbhtlribji89-94-9588 08:28-0500Respiratory rate16 /minBlaise Brown DPM Work Phone: [facility] CenterZlvzvovrum23-08-6085 08:09-0500Blood Pressure LocationKWABENA NKANSAH-AMANKRA [facility] [place] 954572-19-2024 08:09-0500Diastolic blood vxthohau37 mm[Hg]MARQUIS NKANSAH-AMANKRA [facility] [place] 954572-19-2024 08:09-0500Heart rate65 /minKWABENA NKANSAH-AMANKRA [facility] [place] 954572-19-2024 08:09-0500Systolic blood ryrjbwhm131 mm[Hg]MARQUIS NKANSAH-AMANKRA [facility] [place] 954570-31-2024 08:19-0400Body lgamwc261.9 cmBlaise Chicas DPM Work Phone: [phone] [place], [place] [address]Jzzqeaviql28-92-7989 08:19-0400Body mass index (BMI) [Ratio]39.2 kg/u3MeqidaujBlaise Chicas DPM Work Phone: [phone] [place], [place] [address]Dbkuyoqjff78-41-6910 08:19-0400Body qeqkhk484.09 kgBlaise Chicas DPM Work Phone: [facility] CenterFpznxpssxr86-74-4992 08:19-0400Diastolic blood mm[Hg]Blaise Chicas DPM Work Phone: [phone] [place], [place] [address]Ymjvbmecgb52-21-9926 08:19-0400Heart rate81 /min Blaise Chicas DPM Work Phone: [facility] CenterMbtwgnazkr22-05-5800 08:19-0400Systolic blood mm[Hg]Blaise Chicas DPM Work Phone: [facility] CenterXuiczgcmnx14-60-8294 10:25-0400Blood Pressure LocationKMUNDO NKANSAH-AMANKRA [facility]09-24-2024 10:25-0400Diastolic blood dchlsbeo85 mm[Hg]MARQUIS NKANSAH-AMANKRA [facility]09-24-2024 10:25-0400Systolic blood qaqhmgzc381 mm[Hg]MARQUIS NKANSAH-AMANKRA [facility]09-19-2024 08:45-0400Body fabeux121.9 cmBlaise Aviva DPM Work Phone: [address] [place] [address]Jkqkyjjdpx39-22-1210 08:45-0400Body mass index (BMI) [Ratio]39.2 kg/n8Inaxwxzl Brown DPM Work Phone: [address] [place] [address]Kkhkxpxhfn31-88-5525 08:45-0400Body .09 kgSachigregg Chicas DPM Work Phone: [address] [address]Dnywrjumza73-91-4643 08:45-0400Diastolic blood iycimxxk69 mm[Hg]Blaise Chicas DPM Work Phone: [address] [place] [address]Qibnuytptq98-91-0359 08:45-0400Heart rate75 /min Blaise Aviva DPM Work Phone: [address] [place] [address]Ofawluwbib02-58-5106 08:45-0400Respiratory rate18 /minBlaise Aviva DPM Work Phone: [address] [address]Vtscibwzbz74-96-5949 08:45-0400Systolic blood mm[Hg]Blaise Chicas DPM Work Phone: [facility] CenterLugiszlbux76-29-4107 11:24-0400Body yxbnkm742.9 cmBarrie Montoya MD Work Phone: [address] [address]Hohbxtxzsl67-58-1643 11:24-0400Body mass index (BMI) [Ratio]39.2 kg/m2Barrie Montoya MD Work Phone: [address] [address]Raboyjedna83-11-5702 11:24-0400Body yvxdbn235.09 kgBarrie Montoya MD Work Phone: [address] [address]Wwtupxfnsj87-22-4425 11:24-0400Diastolic blood gfiduizk49 mm[Hg]Barrie Montoya MD Work Phone: [address] [address]Qcoqqelamw85-88-6330 11:24-0400Heart rate73 /min Barrie Montoya MD Work Phone: [address] [address]Odopxbsbvo35-46-5956 11:24-0400Systolic blood yjyxmvax588 mm[Hg]Barrie Montoya MD Work Phone: [facility] CenterOjdaxdqhmb34-12-3293 08:27-0400Body fovope379.9 cmBlaise Chicas DPM Work Phone: [facility] CenterLwideydwvo81-92-9181 08:27-0400Body mass index (BMI) [Ratio]26.04 kg/b0HuydwhvfBlaise Chicas DPM Work Phone: [facility] CenterLhysdbnrzx70-40-8020 08:27-0400Body hadwax11.09 kgBlaise Chicas DPM Work Phone: [place] [address]Oluwzifklp84-89-2856 08:27-0400Diastolic blood setwgtsu50 mm[Hg]Blaise Chicas DPM Work Phone: [place] [address]Qbhuxkzwwr77-89-3924 08:27-0400Heart rate75 /min Blaise Chicas DPM Work Phone: [facility] CenterXjtgynzczr20-99-6608 08:27-0400Respiratory rate18 /minBlaise Chicas DPM Work Phone: [facility] CenterKiaoocdrff55-23-1020 08:27-0400Systolic blood swprbkeh641 mm[Hg]Blaise Chicas DPM Work Phone: [facility] CenterTctenhalph46-44-3678 08:27-0400Body .9 cmBlaise Chicas DPM Work Phone: [facility] CenterAurllcsivw31-46-0335 08:27-0400Body mass index (BMI) [Ratio]26.04 kg/i0AingzkwgBlaise Chicas DPM Work Phone: [place] [address]Fxcvrfwhvt44-91-1678 08:27-0400Body ddydyo55.09 kgBlaise Chicas DPM Work Phone: [place] [address]Ljcyrmgmqa46-94-4975 08:27-0400Diastolic blood plieqbus04 mm[Hg]Blaise Chicas DPM Work Phone: [facility] CenterXmuclhukgo61-15-1599 08:27-0400Heart rate77 /min Blaise Chicas DPM Work Phone: [facility] CenterMpocatobvo38-72-1037 08:27-0400Systolic blood tiiemwmf567 mm[Hg]Blaise Chicas DPM Work Phone: [facility] CenterCiliufbylo59-23-7406 14:33-0500Diastolic blood gxoscgfr13 mm[Hg]Nereyda Patricia [phone]-Fbemd[address] [place], [place] [address]111-30-2023 14:33-0500Mean blood mm[Hg]Nereyda Particia [phone]-Qajba[address] [place] [address]-30-2023 14:33-0500Systolic blood bojmwmsv790 mm[Hg]Nereyda Patricia [phone]-Ficho[address] [place], [place] [address]111-30-2023 14:18-0500Blood Pressure LocationBeth Patricia [phone]-Plkqx[address] [place], [place] [address]111-30-2023 14:18-0500Body ngmoupriqrf96.88 [degF]Nereyda Patricia [phone]-Biqmm[address] [place], [place] [address]111-30-2023 14:18-0500Diastolic blood xqvawojp96 mm[Hg]Nereyda Patricia [phone]-Iizbm[address] [place] [address]-30-2023 14:18-0500Heart rate91 /minBeth Patricia 166-3982Ozovcx-Nqlot[address] [place] [address]-30-2023 14:18-0500Systolic blood zenxgnmg436 mm[Hg]Nereyda Patricia 750-6503Esijka-Mlvox[address] [place] [address]-17-2023 12:13-0500Diastolic blood mm[Hg]Nereyda Patricia 105-6266Ekcixv-Npbzd[address] [place] [address]-17-2023 12:13-0500Mean blood polnfiel885 mm[Hg]Nereyda Patricia [phone]-UolruIan Ville [address]-17-2023 12:13-0500Systolic blood tiirwvwy762 mm[Hg]Nereyda Gomez [phone]-DagviIan Ville [address]-17-2023 12:10-0500Blood Pressure LocationBeth Patricia [phone]-IpblbIan Ville [address]-17-2023 12:10-0500Body jnzfkbxrclo94.42 [degF]Nereyda Gomez [phone]-RsjkoIan Ville [address]-17-2023 12:10-0500Diastolic blood sreaznem12 mm[Hg]Nereyda Joyametz [phone]-UevgsIan Ville [address]-17-2023 12:10-0500Heart rate81 /minBeth Patricia [phone]-KsztbIan Ville [address]-17-2023 12:10-0500Respiratory rate14 /minBeth Patricia [phone]-LtigrIan Ville [address]-17-2023 12:10-0500Systolic blood mm[Hg]Nereyda Gomez [phone]-MwypuJose [place] [address]-27-2023 10:43-0400Diastolic blood cvlnjlya55 mm[Hg]Nereyda Gomez [phone]-KmtorJose Ville [address]-27-2023 10:43-0400Heart rate76 /minBeth Patricia 530-4618Qrrwke-OyudqJose Ville [address]-27-2023 10:43-0400Respiratory rate16 /minBeth Patricia [phone]-LnpinJose Ville [address]-27-2023 10:43-2888GzZ8% (BldA) [Mass fraction]95 %Nereyda Joyametz [phone]-UndamSt. [facility] Hospital07-27-2023 10:43-0400Systolic blood zwrsauak837 mm[Hg]Nereyda Patricia [phone]-LgnxhSt. [facility] Hospital05-30-2023 14:19-0400Diastolic blood mm[Hg]Nereyda Patricia [phone]-KwjruSt. Elizabeth Hospital05-30-2023 14:19-0400Mean blood zeuyncxm54 mm[Hg]Nereyda Patricia [phone]-Wydsf[address] [place], [place] [address]105-30-2023 14:19-0400Systolic blood lohdjmzu133 mm[Hg]Nereyda Patricia [phone]-Iapzm[address] [place], [place] [address]105-30-2023 14:15-0400Blood Pressure LocationBeth Patricia [phone]-Yhikh[address] [place], [place] 8701105-30-2023 14:15-0400Body gdkqafajzpv89.7 [degF]Nereyda Patricia [phone]-Jkzoe[address] [place], [place] 8701105-30-2023 14:15-0400Diastolic blood pkmabvos96 mm[Hg]Nereyda Patricia 215-7379Mrymvm-AeozbSt. [facility]05-30-2023 14:15-0400Heart rate70 /minBeth Patricia [phone]-EehfxSt. [facility] Hospital05-30-2023 14:15-0400Systolic blood fidpbwly071 mm[Hg]Nereyda Patricia [phone]-GqgiuSt. [facility] Hospital07-26-2022 10:02-0400Body jsxzmpgbadh56.98 [degF]Nereyda Patricia 800-0190Gukqjk-BiukwC[facility] [phone] 10:02-0400Diastolic blood jjsutzed55 mm[Hg] Nereyda Patricia [phone]-WsdulC[facility] 07-26-2022 10:02-0400Heart rate72 /minBeth Patricia [phone]-HzjfqC[facility] 07-26-2022 10:02-6263QlM9% (BldA) [Mass fraction]97 % Nereyda Gomez 210-1847Szored-QjuueCleveland Clinic [facility] 07-26-2022 10:02-0400Systolic blood eomogmlf533 mm[Hg] Nereydasergio Gomez [phone]-KyydzC[facility] 866383-30-4990 11:30-0400Diastolic blood aijaepdv079 mm[Hg] Bender SALAM [facility]06-27-2022 11:30-0400Heart rate86 /minMaher SALAM [facility]06-27-2022 11:30-0400 Respiratory rate15 /minMaher SALAM [facility]06-27-2022 11:30-9082EtS5% (BldA) [Mass fraction]95 %Bender SALAM [facility]06-27-2022 11:30-0400 Systolic blood lxrvdsyy199 mm[Hg]Bender SALAM [facility]06-27-2022 11:15-0400 Diastolic blood sptobevq54 mm[Hg]Bender SALAM [facility]06-27-2022 11:15-0400Heart rate86 /minMaher SALAM [facility]06-27-2022 11:15-0400 Respiratory rate18 /minMaher SALAM [facility]06-27-2022 11:15-3432IiF3% (BldA) [Mass fraction]97 %Bender SALAM [facility]06-27-2022 11:15-0400 Systolic blood ctegyirg536 mm[Hg]Bender SALAM [address] [place], [place] 3007106-27-2022 11:10-0400 Diastolic blood hjgosmzp318 mm[Hg]Bender SALAM [facility]06-27-2022 11:10-0400Heart rate85 /minMaher SALAM [address] [place], [place] 3007106-27-2022 11:10-0400 Respiratory rate14 /minMaher SALAM [address] [place], [place] 3007106-27-2022 11:10-9847SsI4% (BldA) [Mass fraction]97 %[facility] SALAM [facility]06-27-2022 11:10-0400 Systolic blood oheuurue149 mm[Hg]Bedner SALAM [facility]06-27-2022 11:02-0400Body bvqiwvmckff77.34 [degF]Bender SALAM [facility]06-27-2022 10:27-0400Blood Pressure LocationMaher SALAM [facility]06-27-2022 10:23-0400Blood Pressure LocationMaher SALAM [facility]06-27-2022 10:23-0400Body vstcioaxmwk22.24 [degF]Bender SALAM [facility]05-17-2022 09:53-0400Blood Pressure LocationBeth Patricia [phone]-CnvjpC[facility] [phone] 09:53-0400Body umyjmjgdezy23.7 [degF]Nereyda Gomez [phone]-GcghkC[facility] 05-17-2022 09:53-0400Diastolic blood mm[Hg] Nereyda Gomez [phone]-DknvyC[facility] 348525-81-7119 09:53-0400Heart rate73 /minNereyda Gomez [phone]-AszbmC[facility] 05-17-2022 09:53-5646DeS1% (BldA) [Mass fraction]96 % Nereyda Gomez 558-3844Ynrblv-UvdseC[facility] Clinic [facility] 05-17-2022 09:53-0400Systolic blood zujrzceh417 mm[Hg] Nereyda Gomez [phone]-ZrxkeC[facility] Clinic [facility] Encounters Encounter DateEncounter TypeCare ProviderFacilityStart: 86-42-8929zqkfbeatcr MARQUIS NEELY-AMJOVANIRAFacility:NAV Gardinertart: 08-22-2025 End: 14-48-5493Pqrgihluf encounterClaritza MONIQUE [employer] [facility] 111 Start: 08-01-2025 End: 78-40-9032mrwbuugnfjPXTCQWV [facility]art: 07-30-2025 End: 97-04-2382jsiiewrtcaGTJT [facility]: 07-27-2025 End: 14-37-8155Esedjrlissett Montoya MD Work Phone: noms NEUROLOGYStart: 07-27-2025 End: 70-00-9124Fvvrimsharon Montoya MD Work Phone: noms NEUROLOGYStart: 07-27-2025 End: 26-06-4814iedbawemlxGLFT D BEJNot AvailableStart: 07-27-2025 End: 60-80-6807Rhvtjw outpatient visit 25 minutesBarrie Montoya MD Work Phone: no[facility] NeurologyComment on above: Tremor (Primary Dx); Neurogenic pain; Carotid stenosis, bilateral; Sequelae of cerebral infarction; JOSIAH (obstructive sleep apnea); B12 deficiency; Cervical paraspinal muscle spasmStart: 07-10-2025 End: 72-68-8393Arifzlsharon Montoya MD Work Phone: noms NEUROLOGYStart: 07-10-2025 End: 85-84-0538Bdefnplissett Montoya MD Work Phone: noms NEUROLOGYStart: 07-10-2025 End: 44-73-8872Fbqrdo outpatient visit 25 minutesBarrie Montoya MD Work Phone: noN[facility] NeurologyComment on above: Tremor (Primary Dx); Neurogenic pain; Carotid stenosis, bilateral; Sequelae of cerebral infarction; JOSIAH (obstructive sleep apnea); Cervical paraspinal muscle spasm; B12 deficiencyStart: 07-10-2025 End: 25-82-6998yskflxkxceJTIP D BEJNot AvailableStart: 06-28-2025 End: 00-25-5673Mcfrtg flowsPhoenix Chicas DPM Work Phone: noms CI PODIATRYStart: 06-28-2025 End: 07-73-4195Gdutts flowsPhoenix Chicas DPM Work Phone: noms CI PODIATRYStart: 06-28-2025 End: 07-37-1407Wnytvcv encounter procedureBlaise Chicas DPM Work Phone: NOMS PODIATRYComment on above:Verruca plantaris (Primary Dx); Foot pain, right; Diabetes mellitus due to underlying condition with diabetic polyneuropathy, unspecified whether group home insulin use (HCC); Pain due to onychomycosis of toenails of both feetStart: 06-28-2025 End: 16-68-3810fqzcfmhwuqLKVZFQTM A BROWNNot AvailableStart: 06-18-2025 End: 98-33-6665tkvkvrgcrpXXFARB [facility] Start: 06-11-2025 End: 43-85-5513pvrlgzisjqHHGPUTCQ E PERRYFacility:EU BellevueStart: 06-11-2025 End: 09-20-7241Nxrzhbd encounter procedureJENNIFER E SHARA [facility] Alberto start: 05-28-2025 End: 77-59-6926fddydqgmsnRWEB [facility]art: 96-57-7851Fikidwfsiy and management of inpatientADAM [facility]tart: 86-19-5349Yzfkoiltnw and management of inpatientABHISHEK MACleveland [facility] Hospitaltart: 34-45-9947Cogvniqrln and management of inpatientGEORGE [facility] Hospitaltart: 25-97-0929Muacojcdka and management of inpatientRAGHEB ASSALYOhio Valley Surgical Hospitaltart: 90-80-5868Wwdjantkyp and management of inpatientHANI SAADUniGreene Memorial Hospitaltart: 05-15-2025 End: 99-96-0637hggqzkswiuUTN [facility]ertart: 32-64-2996Vnfkcpkrww and management of inpatientCONNIE [facility] Hospitaltart: 38-85-0193Rzmegdnwsf and management of inpatient NEDRA [facility] Hospitaltart: 68-78-0856Gfcmklqann and management of inpatientCONNIE [facility] Hospitaltart: 22-60-1931Xqtazhxlch and management of inpatientBABAR [facility]tart: 05-10-2025 End: 54-66-3500Ejsbgbkthj and management of inpatientMOHAMAD [facility] Hospitaltart: 05-08-2025 End: 79-78-5357Uppzeb flowsheetFetresa Herron [employer]LE [employer] SIDE WIRE STITCHER Work Phone: noms BM NEUROLOGYStart: 05-08-2025 End: 30-36-0709Ykqkvx flowsheetFelicia Ericka Herron [employer] WIRE STITCHER Work Phone: noms NEUROLOGYStart: 05-08-2025 End: 89-23-9818Rpjehd outpatient visit 40 minutesFetresa Herron [employer]ADD[employer] SIDE WIRE STITCHER Work Phone: noms SWS NEUR BComment on above:Benign essential tremor (Primary Dx); Neurogenic pain; Sequelae of cerebral infarction; Cervical paraspinal muscle spasm; JOSIAH (obstructive sleep apnea); Carotid stenosis, bilateral; PolyneuropathyStart: 05-08-2025 End: 82-40-8806xvqtwochsyDIFVPIJ C WINDNAGELNot AvailableStart: 04-30-2025 End: 55-45-2283uaqfjpiowxFCMINT [facility] Start: 04-14-2025 End: 21-44-8131Kaihbedwxq and management of inpatientDO Ronkiker Mesha BEGUMKARTIK Facility[facility]: 04-14-2025 End: 32-54-6154Tmmzhibzr department patient visitDOLas [facility] Ambulatory PPGStart: 21-20-1408wzsnpfktpiNRXCOQALas [facility] Ambulatory PPGStart: 78-93-6850Llsdmsesy department patient visitAstrit Sergio NancyariFacility:FTLOMP[facility]ENTERtart: 04-14-2025 End: 07-17-8162Kpvxvuskim and management of inpatientRonobir R KARTIK [facility] Start: 04-12-2025 End: 53-89-0503Rninil Maxine Chicas DPM Work Phone: noms CI PODIATRYStart: 04-12-2025 End: 21-27-9248Vlqlzg Maxine Chicas DPM Work Phone: noms CI PODIATRYStart: 04-12-2025 End: 37-11-5938Lpqewes encounter procedureBlaise Chicas DPM Work Phone: noms CI PODIATRYComment on above:Verruca plantaris (Primary Dx); Foot pain, right; Diabetes mellitus due to underlying condition with diabetic polyneuropathy, unspecified whether terminal supervisor insulin use ([facility]); Pain due to onychomycosis of toenails of both feetStart: 04-12-2025 End: 65-41-1566mgxhuymstjLRWRPGCX A BROWNNot AvailableStart: 04-10-2025 End: 68-13-8609Kfqoxzlissett Montoya MD Work Phone: noms BM NEUROLOGYStart: 04-10-2025 End: 29-22-1343Tmpnhgsharon Montoya MD Work Phone: noms NEUROLOGYStart: 04-10-2025 End: 69-33-5633Ovemlh outpatient visit 25 minutesBarrie Montoya MD Work Phone: noms SWS NEUR BComment on above:Benign essential tremor (Primary Dx); Neurogenic pain; Sequelae of cerebral infarction; Cervical paraspinal muscle spasm; JOSIAH (obstructive sleep apnea); Carotid stenosis, bilateralStart: 04-10-2025 End: 53-39-1468sgcjooqzbuGGMB D BEJNot AvailableStart: 03-12-2025 End: 69-05-3426rvyajvkwbhLJVXKB [facility] Start: 03-08-2025 End: 37-74-7413Edustplissett Chicas DPM Work Phone: noms CI PODIATRYStart: 03-08-2025 End: 38-73-6792Mbiyphlissett Chicas DPM Work Phone: noMS CI PODIATRYStart: 03-08-2025 End: 60-10-9466Ydrbvn follow up visit related to original Jorge Chicas DPM Work Phone: noms CI PODIATRYComment on above:Verruca plantaris (Primary Dx); Foot pain, right; Diabetes mellitus due to underlying condition with diabetic polyneuropathy, unspecified whether group home insulin use ([facility]); Pain due to onychomycosis of toenails of both feetStart: 03-08-2025 End: 50-27-5464xpbxvmhtbnBBOGEDTA A BROWNNot AvailableStart: 02-28-2025 End: 24-26-3667dqfemkgfhxGEBKCW [facility] Start: 21-61-0885shvwbgrglaSEUBHYRBlack [facility] Hospital Ambulatory PPGStart: 02-14-2025 End: 23-19-7225Rqjlsoshc department patient visitDOLas [facility] Ambulatory PPGStart: 01-03-2025 End: 23-72-4478vkanhfgnjxONPTJGMercer County Community Hospitaltart: 12-14-2024 End: 37-62-3096cxxoficwtsLOVAIIPremier Health [facility] Start: 12-04-2024 End: 03-86-7387xdbceizyxlMIKMCMR NKANSAH-AMANKRAFacility:NAV Gardinertart: 12-04-2024 End: 84-49-1830Yjkvbjl encounter procedureMARQUIS LOUISE [facility] Start: 11-30-2024 End: 12-04-6372Ikjflrlissett Chicas DPM Work Phone: noms CI PODIATRYStart: 11-30-2024 End: 51-29-0867Yndkemlissett Chicas DPM Work Phone: noms CI PODIATRYStart: 11-30-2024 End: 44-78-0430Ftkiybh encounter Kady Cara Chicas DPM Work Phone: noms CI PODIATRYComment on above:Verruca plantaris (Primary Dx); Foot pain, right; Diabetes mellitus due to underlying condition with diabetic polyneuropathy, unspecified whether terminal supervisor insulin use (CMS/HCC); Pain due to onychomycosis of toenails of both feetStart: 11-30-2024 End: 81-03-4730isueydztqvRHPUXIVL A BROWNNot AvailableStart: 11-06-2024 End: 38-32-5292ljrwhevmjsDtposxz R WATERSFacility:EU tart: 11-06-2024 End: 33-20-9141Supgzuy encounter procedureMejia SINGH [facility] start: 11-02-2024 End: 55-36-4167ppmbfymqtcFTHLAJC NKJILLIAN-AMJOVANIRAFacility:EU kStart: 11-02-2024 End: 05-60-9533Norsrhw encounter procedureKMUNDO NEELY-AMANKRA [facility] Start: 10-30-2024 End: 67-17-4546eoyuvquyrtCqchoob R WATERSFacility:CD:[id number]: 10-25-2024 End: 51-87-9364uqildnatafWZIXJVS NKANSAH-AMANKRAFacility:EU BellueStart: 10-23-2024 End: 91-17-1618kcobwstbqtKOTIGCR NKANSAH-AMANKRAFacility:FTMCStart: 10-23-2024 End: 76-36-5748Iiassfg encounter procedureKMUNDO NKANSAH-AMANKRA [facility] Start: 10-02-2024 End: 62-78-8949tqvzbskxkzQMTETEY NKANSAH-DAYSIFacility:EU NorwalkStart: 09-25-2024 End: 61-97-1429lazubrzabnAVKYUUY NKNEELAEMMY-QIANFacility:FTMCStart: 09-25-2024 End: 54-05-1731Pzhjgob encounter procedureMADDYRANDA NEELY-QIAN [facility] Start: 09-14-2024 End: 65-85-1889Kqrsax Maxine Chicas DPM Work Phone: noms CI PODIATRYStart: 09-14-2024 End: 33-52-6175Itgtxa Maxine Chicas DPM Work Phone: noms CI PODIATRYStart: 09-14-2024 End: 71-40-1373Sirzvea encounter procedureBlaise Chicas DPM Work Phone: noms CI PODIATRYComment on above:Verruca plantaris (Primary Dx); Foot pain, right; Diabetes mellitus due to underlying condition with diabetic polyneuropathy, unspecified whether terminal supervisor insulin use ([facility]); Pain due to onychomycosis of toenails of both feetStart: 09-14-2024 End: 88-07-1106iwovgdrfiiBQLBXHHD A BROWNNot AvailableStart: 08-24-2024 End: 13-90-0276Methhn Gabino Joy MD Work Phone: noms SWS DERMStart: 08-24-2024 End: 98-06-2940Uhfooplissett Joy MD Work Phone: noms SWS DERMStart: 08-24-2024 End: 56-51-7708Qsznyq outpatient visit 15 minutesEmviviane Joy MD Work Phone: NOMC SWS DERMComment on above:Melanocytic nevus of trunk (Primary Dx); Actinic keratosis; Lentigines; Seborrheic keratosisStart: 08-24-2024 End: 99-41-0485vgsgtiqrfaIKEBM A PETITTINot AvailableStart: 32-59-6492wmbygcgfvw MARQUIS NKANSAH-AMANKRAFacility:EU NorwalkStart: 77-98-8730osittkvwlkYKNADKL NKANSAH-AMANKRAFacility:EU [place]uskyStart: 08-14-2024 End: 47-00-5241Mijenygjc encounterBarrie Montoya MD Work Phone: noms [facility] NEURO 111Start: 08-08-2024 End: 37-66-7837uaqbsyopreUOGXIYS NKANSAH-AMANKRAFacility:EU NorkStart: 08-08-2024 End: 86-14-0584Yiwlfyy encounter procedureKSAWYERALMA DELIARANDA REINOSOAH-AMANKRA [facility] Start: 08-03-2024 End: 02-18-7084Whytak flowsheetNicholas A Brown DPM Work Phone: NONP CI PODIATRYStart: 08-03-2024 End: 78-94-4072Sgbxpv flowsheetNicholas A Brown DPM Work Phone: noms CI PODIATRYStart: 08-03-2024 End: 87-51-8168Htywdtn encounter procedureNicholas A Brown DPM Work Phone: noms CI PODIATRYComment on above:Verruca plantaris (Primary Dx); Foot pain, right; Xerosis cutisStart: 08-03-2024 End: 13-02-3889wlfrhqiqeaBQDUBUUA A AVIVANot AvailableStart: 08-01-2024 End: 88-79-8802Bpncpu flowsheetBarrie Montoya MD Work Phone: NOMS BM NEUROLOGYStart: 08-01-2024 End: 27-54-3736Runuxz Kemi Montoya MD Work Phone: noms BM NEUROLOGYStart: 08-01-2024 End: 21-83-1393Yedife outpatient visit 25 minutesBarrie Montoya MD Work Phone: noms SWS NEUR BComment on above:Neurogenic pain (Primary Dx); Benign essential tremorStart: 08-01-2024 End: 45-80-1387epknfvfkaaYSVJ D BEJNot AvailableStart: 07-20-2024 End: 78-66-1588Ftdghj flowsheetNicholas A Brown DPM Work Phone: noms CI PODIATRYStart: 07-20-2024 End: 64-19-4934Oxdauw flowsheetNicholas A Brown DPM Work Phone: noms CI PODIATRYStart: 07-20-2024 End: 72-36-5563Fhfvboj encounter procedureNicholas A Brown DPM Work Phone: noms CI PODIATRYComment on above:Verruca plantaris (Primary Dx); Foot pain, right; Xerosis cutisStart: 07-06-2024 End: 99-79-5574Xaivtm flowsheetNicholas A Brown DPM Work Phone: noms CI PODIATRYStart: 07-06-2024 End: 78-11-3755Vnbkzo flowsheetNicholas A Brown DPM Work Phone: noms CI PODIATRYStart: 07-06-2024 End: 21-06-4290Fprghz outpatient visit 15 minutesNicholas A Brown DPM Work Phone: noms CI PODIATRYComment on above:Xerosis cutis (Primary Dx); Verruca plantaris; Foot pain, right; Diabetes mellitus due to underlying condition with diabetic polyneuropathy, unspecified whether terminal supervisor insulin use ([facility]); Onychomycosis; Toe pain, bilateralStart: 10-14-2023 End: 82-69-2387Vpzevtw encounter procedureBeth A Patricia 057-6353Aypbgl-UrecvCleveland Clinic [facility] Start: 10-01-2023 End: 62-78-7554Ocfvtxz encounter procedureBeth A Patricia [facility] Start: 10-01-2023 End: 40-58-5793Rjoeopm encounter procedureBeth A Patricia 795-4725Yjuqir-NnjlsC[facility] Clinic [facility] Start: 09-13-2023 End: 59-82-5469Jwvwalt encounter procedureBeth A Patricia 685-7478Hnrcwn-KrqsfC[facility] Clinic [facility] Start: 06-10-2023 End: 1939Hgtenpp encounter procedureBeth A [employer] 661-5667Awwppa-VzacuC[facility] Clinic [facility] Start: 04-15-2023 End: 41-70-2497Iak Drop offBeth A [employer] [facility] Start: 04-13-2023 End: 69-81-9012Igcpnuj encounter procedureBeth A Patricia 860-2732Fjcieg-AalwxC[facility] Start: 03-24-2023 End: 31-43-1472vshmefmxgtZZ RUTHIE Kowalskicility:E6Rmugw: 02-27-2023 End: 11-21-8845opnfasgjrgQW VAN YOUSSEF .Facility:X4Ysfyx: 12-28-2022 End: 21-30-2689efhuiobucxUC RUTHIE LINDAFacility:T9Louux: 11-16-2022 End: 85-75-4582lzkzbnweadXA DINKAR KAWFacility:P3Gvska: 11-02-2022 End: 04-76-6835oytyikezzqCB DOUGLAS HOY .Facility:W9Aswsn: 07-18-2022 End: 81-59-7301Zbmgrikcpy and management of inpatientDR VAN YOUSSEF .Facility:H1 Start: 07-13-2022 End: 23-71-3805oehvvjqbjjGR DOUGLAS HOY .Facility:D5Ofzws: 07-01-2022 End: 07-96-4849pzuckfydwwVU GEORGE MOUKARBELFacility:C2Aptyt: 06-16-2022 End: 50-41-5769rqdmhghtysUM DOUGLAS HOY .Facility:F9Jftnz: 06-09-2022 End: 80-34-3691Lkjhfor encounter procedureNereyda Gomez [phone]-DsfflCleveland Clinic [facility] Start: 06-08-2022 End: 85-54-9789bkiuuagyhkMRLECMML ALIFacility:B5Bdmnw: 05-11-2022 End: 16-82-9293Rjeeway encounter procedureMaher SALAM [facility] Start: 04-28-2022 End: 80-17-4941oijdzzqryjXI DOUGLAS HOY .Facility:D2Ozels: 03-31-2022 End: 99-19-4878Tbrbyhm encounter procedureNereyda Gomez [phone]-RtzunCleveland Clinic [facility] Start: 2019 End: 34-17-5027Cweiltz encounter procedureDEFAULT PHYSICIANFacility:[facility] Procedures DateProcedureProcedure DetailPerforming ClinicianStart: 30-65-7357BTYLUEFYUFD SKIN LESIONEmily Cara Joy MD Work Phone: Start: 26-46-6664GoxaoomqcarNdpuo SALAM Comment on above:2 polyps, diveticulosis, IHStart: 66-76-6522VcggowmjqqyycRbac Steinmetz Back structure, excluding neck (body structure)Nereyda Gomez CholecystectomyNereyda Gomez ColonoscopyNereyda Gomez History of hernia repairBeonofre Gomez TonsillectomyNereyda Gomez Plan of Treatment DateCare ActivityDetailAuthorStart: 10-09-2025 End: 71-90-5111Nfslbmd encounter procedureNOMS SWS NEUR BStart: 09-20-2025 End: 55-97-1626Bpunygy encounter cjquqyrip47/06/2025 11:40 AM EST Office Visit [facility] [address] [facility] [address] [place] [address] Blaise Chicas DPM [address] [facility] [address] [place] [address] NOM[facility] CI PODIATRYStart: 09-18-2025 End: 49-81-3371Ymqhmai encounter gbjodlcak62/04/2025 12:30 PM EST Office Visit [facility]y [facility] [address] [facility] [[email or web address]] [address] [place] [address] Barrie Montoya MD [address] [facility] [address] [place] [address] [facility] Rafy [facility] Start: 09-11-2025 End: 28-15-5763Rgmmgue encounter procedureNOMS SWS DERMStart: 08-23-2025 End: 82-90-9968Thutdss encounter tbvwtxtim36/09/2025 10:50 AM EDT Office Visit [facility] SWS DERM [address] [place] [address] Rodney Joy MD [address] [place] [address] NOMS SWS DERMStart: 30-78-9792Vtvsvlgrx vaccination Influenza Vaccine (#1)NOMS HealthcareStart: 07-10-2025 End: 89-34-4306Fljvobr encounter procedureNOMS SWS NEUR BComment on above: ArrivedStart: 06-28-2025 End: 12-01-8688Dwilomj encounter abtpenjxm71/14/2025 11:50 AM EDT Office Visit [facility] CI PODIATRY [address] [facility] [address] [place] [address] Blaise Chicas DPM [address] [address] Verruca plantaris (Primary Dx); Foot pain, right; Diabetes mellitus due to underlying condition with diabetic polyneuropathy, unspecified whether group home insulin use (HCC); Pain due to onychomycosis of toenails of both feetNOMS CI PODIATRYComment on above:Verruca plantaris (Primary Dx); Foot pain, right; Diabetes mellitus due to underlying condition with diabetic polyneuropathy, unspecified whether terminal supervisor insulin use (HCC); Pain due to onychomycosis of toenails of both feetStart: 06-21-2025 End: 54-98-4717Yjaljpf encounter unigznbab15/07/2025 10:40 AM EDT Office Visit [facility] CI PODIATRY [address] [address] Blaise Chicas DPM [address] [address] N[facility] CI PODIATRYStart: 05-08-2025 End: 30-49-7407Zumkasm encounter mwxziauco44/24/2025 2:00 PM EDT Office Visit [facility] NE[facility] B [address] [facility] [[email or web address]] [address] [place] [phone] Mony Herron, SADDLE AND SIDE WIRE STITCHER [address], [facility] [[email or web address]] [address] [place] [address] ArrivedNOMS SWS NEUR BComment on above: ArrivedStart: 04-12-2025 End: 79-26-5457Rimdpdc encounter procedureNOMS CI PODIATRYComment on above: Verruca plantaris (Primary Dx); Foot pain, right; Diabetes mellitus due to underlying condition with diabetic polyneuropathy, unspecified whether terminal supervisor insulin use (CMS/HCC); Pain due to onychomycosis of toenails of both feetStart: 03-08-2025 End: 18-89-7214Qzbdlsz encounter hwrkeneyg47/24/2025 9:20 AM EDT Office Visit [facility] [address] [address] Blaise Chicas DPM [address] [address] Verruca plantaris (Primary Dx); Foot pain, right; Diabetes mellitus due to underlying condition with diabetic polyneuropathy, unspecified whether group home insulin use (CMS/HCC); Pain due to onychomycosis of toenails of both feetNOMS CI PODIATRYComment on above:Verruca plantaris (Primary Dx); Foot pain, right; Diabetes mellitus due to underlying condition with diabetic polyneuropathy, unspecified whether group home insulin use (CMS/HCC); Pain due to onychomycosis of toenails of both feetStart: 02-15-2025 End: 16-52-6186Kqqvolq encounter /03/2025 8:40 AM EDT Office Visit [facility] [address] [phone] Blaise Chicas DPM [address] [address] [facility] PODIATRYStart: 11-30-2024 End: 74-18-4460Ahocfuf encounter procedureNOMS CI PODIATRYComment on above: Verruca plantaris (Primary Dx); Foot pain, right; Diabetes mellitus due to underlying condition with diabetic polyneuropathy, unspecified whether terminal supervisor insulin use (CMS/HCC); Pain due to onychomycosis of toenails of both feetStart: 10-10-2024 End: 17-09-8504Zetzoxg encounter /26/2024 10:45 AM EST Office Visit [facility] [address] [phone] Barrie Monotya MD [address] [address] [facility] NE[facility] BStart: 09-14-2024 End: 65-50-7778Bzmjvxc encounter procedureNOMS CI PODIATRYComment on above: Verruca plantaris (Primary Dx); Foot pain, right; Diabetes mellitus due to underlying condition with diabetic polyneuropathy, unspecified whether terminal supervisor insulin use (CMS/HCC); Pain due to onychomycosis of toenails of both feetStart: 08-24-2024 End: 83-75-8148Qsxeooa encounter procedureNOMS [facility] DERMComment on above:Arrived Start: 08-03-2024 End: 14-81-8609Dnaohbz encounter procedureNOMS CI PODIATRYComment on above: Verruca plantaris (Primary Dx); Foot pain, right; Xerosis cutisStart: 08-01-2024 End: 87-46-0373Zxyojbt encounter syykrjmyc99/17/2024 1:30 PM EDT Office Visit [facility] B [address] [phone] Barrie Montoya MD [address] [address] [facility] NEUR BStart: 08-01-2024 End: 15-21-7732Wyzrhpb encounter fluvsaeco79/17/2024 11:30 AM EDT Office Visit [facility] B [address] [phone] Barrie Montoya MD [address] [address] ArrivedN[facility]S SWS NEUR BComment on above:ArrivedStart: 07-20-2024 End: 67-79-1000Liwstad encounter procedureNOMS CI PODIATRYComment on above: Verruca plantaris (Primary Dx); Foot pain, right; Xerosis cutisStart: 94-66-6359Yfoxexoss vaccinationInfluenza Vaccine (#1)[facility] HealthcareStart: 07-06-2024 End: 73-45-6577Gxdtsth encounter xhlajqliz90/22/2024 8:40 AM EDT Office Visit [facility] [address] [facility] [address] [place] [address] Blaise Chicas DPM [address] [facility] [address] [place] [address] Verruca plantaris (Primary Dx); Foot pain, right; Diabetes mellitus due to underlying condition with diabetic polyneuropathy, unspecified whether group home insulin use (CMS/HCC); Onychomycosis; Toe pain, bilateral; Xerosis cutisNOMS CI PODIATRYComment on above:Verruca plantaris (Primary Dx); Foot pain, right; Diabetes mellitus due to underlying condition with diabetic polyneuropathy, unspecified whether terminal supervisor insulin use (CMS/HCC); Onychomycosis; Toe pain, bilateral; Xerosis cutis Immunizations Immunization DateImmunizationNotesCare RlccmxleQmjmuaqt38-15-2683mezurb vaccine recombinantJENNIFER SHARA [facility]10-01-2024influenza virus vaccine, unspecified formulationBlaise Chicas DPM Work Phone: [facility] CenterQxwullfpux92-76-6239JXV vaccine, preF A-preF B, recombinantJENNIFER SHARA [facility]10-06-2023influenza virus vaccine, unspecified formulationBlaise Chicas DPM Work Phone: [facility] CenterQhnsvqyhrk62-22-9588JQYA-JhN-9 (COVID-19) mRNAMUL.ORD!u00554DqgmNereyda Gomez [phone]-ZmdmcChillicothe Va Medical Center HealthComment on above:Result Comment: 2023-04-13: [id number]-LhY-4 (COVID-19) mRNA BNT- 162b2 vaMi-Payeth Patricia [phone]-IjmywSt. [facility]02-17-2021 SARS-CoV-2 (COVID-19) mRNA BNT-162b2 vaMi-Payeth Patricia [phone]-UivbrSt. Elizabeth Hospital01-25-2021 SARS-CoV-2 (COVID-19) mRNA BNT-162b2 vaMi-Payrobbie Patricia [phone]-QzjakSt. Elizabeth Hospital12-23-2020 zoster vaccine recombinantJENNIFER SHARA [facility]10-13-2020influenza virus vaccine, unspecified formulationB[employer] [phone]-AqitmSt. Elizabeth Hospital12-16-2019 tetanus toxoid, reduced diphtheria toxoid, and acellular pertussis vaccine, adsorbedJENNIFER SHARA [facility]12-16-2019zoster vaccine recombinantJENNIFER SHARA [facility]10-02-2017pneumococcal conjugate vaccine, 13 valentBeth Patricia [phone]-SuwcdSt. [facility] Hospital09-21-2017 influenza, unspecified formulationBeth Patricia [phone]-BdnexSt. Elizabeth Hospital11-06-2015 zoster vaccine, liveBeth Patricia [phone]-[facility]wj[facility] Digestive HealthNEGATED: Highlighted row has not occurred!90-86-8921qiyaaefct virus vaccine, unspecified formulationNereyda Gomez [phone]-StgqfC[facility] Digestive HealthNEGATED: Highlighted row has not occurred!06-69-3130kzfyrqzly virus vaccine, unspecified formulationNereyda Gomez [phone]-IolujCleveland Clinic [facility] Hospital Dig[facility] Health Payers DatePayer CategoryPayerPolicy [id number] Health Insurance [id number] [id number] [id number] [id number] [id number] 2..840.1.170413.3.57[id number] 2.840.1.819015.3.57[id number] 2.16840.1.649527.3.57[id number] 2.16.840.1.691002.3.57[id number] 2.16840.1.381081.3.57[id number] 2.16.840.1.922625.3.579.2.[id number] 2.16.840.1.547116.3.579.[id number] 2.16.840.1.280556.3.579.2.08128-92-5851Rhgtmiu2106923 2.16.840.1.169215.3.579.2.61588-26-8907Zvtouec8716154 2.16.840.1.544254.3.579.2.96078-43-8042Bbnaihb6408626 2.16.840.1.485948.3.579.2.09667-05-4465Qnrivxv8102799 2.16.840.1.094276.3.57[id number] 2.16840.1.142718.3.579.2.64664-29-8766Lefqhqp09964030 2.16840.1.141074.3.579.2.29893-49-4256Vdhbyzm55526404 2.16840.1.852019.3.579.2.11446-13-6344Luwyrlw81088137 2.16840.1.492360.3.579.2.08887-44-7207Dxfqoot78205698 2.16840.1.758690.3.579.2.68560-56-9586Vwukoeu461941383 2.16840.1.520229.3.579.2.313356-66-4924Fussnme377042025 2.16840.1.502356.3.579.2.643352-02-7096Hkcyvyv836787323 2.16840.1.803679.3.579.2.384388-93-6428Xxidwna539361050 2.16840.1.375490.3.579.2.212831-81-4571Voclese151998761 2.16840.1.575461.3.579.2.006688-32-4950Bpneefi092382131 2.16.840.1.473334.3.579.2.665935-55-0006Xmmqkhk335447328 2.16840.1.484395.3.579.2.867617-39-2033Iagezfd446966875 2.16840.1.003682.3.579.2.721680-00-1503Fofjgyi221818622 2.16840.1.382412.3.579.2.934617-20-0499Kztxwru53235611 2.16840.1.728733.3.579.2.25602-47-4308Vhzlnjj85981026 2.16840.1.428495.3.579.2.70096-08-2380Lxvngtn44549487 2.840.1.582611.3.579.2.25481-79-6150Cttagio98037380 2.16840.1.562673.3.579.2.11232-68-8894Gjmatcx28708459 2.16840.1.208667.3.579.2.59120-73-9895Ttfcocp78306469 2.16840.1.045231.3.579.2.36369-74-7920Hmitrsf16246352 2.16840.1.613942.3.579.2.00893-90-4950Rcowsnz48728068 2.16840.1.917972.3.579.2.21866-20-1388Bbazjjk92570407 2.16840.1.459160.3.579.2.12917-87-5289Kidjvok33741311 2.16840.1.935696.3.579.2.78166-88-7835Ekbavsq66360769 2.16840.1.034601.3.579.2.03564-26-9769Sfvfjcc42984853 2.16840.1.809382.3.579.2.54272-87-3664Gipqogs42826593 2.160.1.746541.3.579.2.71196-48-0951Xydaoeg24287578 2.16840.1.550723.3.579.2.21639-26-8891Ccnumhr69109903 2.0.1.066899.3.579.2.78447-49-5886Nomjgcm62860917 2.0.1.136548.3.579.2.800543-32-9133Yjjhxat52175916 2.0.1.729769.3.579.2.898975-95-9071Uuncxaj36341450 2.0.1.448014.3.579.2.584891-40-7010Ivqyqse59780029 2.0.1.350935.3.579.2.470130-85-5888Hkxuibr8063362 2.0.1.221463.3.579.2.132566-01-7213Fuevrhc9635769 2.0.1.557717.3.579.2.761392-71-3656Dcftvjw2727794 2.0.1.349667.3.579.2.908445-49-8837Zzmarof2181836 2.840.1.794409.3.579.2.932855-33-3704Jycwqjc9050687 2.840.1.224990.3.579.2.059282-00-9818Gjdjeqi1226439 2.16.840.1.465349.3.579.2.738815-67-0611Ioqbpvk5584222 2..840.1.405755.3.579.2.659801-63-6850Vmligjc7206802 2.16.840.1.226935.3.579.2.1259 Social History DateTypeDetailFacilityStart: 03-31-2022 End: 48-33-2756Ntfdato smoking statusEx-smoker (finding)[facility] Start: 10-12-3193Jabgmfy smoking statusNeverAultman Alliance [facility] Hospital [facility] Start: 08-24-2024 End: 06-18-9297Abi Assigned At BirthMalSelect Medical [facility] Dig[facility] Start: 74-58-1308Tuorbyk smoking status NHISTobacco smoking consumption unknownNOMS HealthcareStart: 08-03-2024 End: 78-84-4786Kyyckljsa beverage intakeLifetime non-drinker (finding)[facility] HealthcareStart: 78-10-6980Febwxnn Commentcaffeine 1-2 cups/dayNOMS Healthcare Start: 28-83-2783Aai assigned at birthNot on fileNOMS HealthcareHistory of tobacco useCurrent smokerNOMS HealthcareHistory of tobacco useCigarette Smoker [facility] HealthcareStart: 55-64-4032Kdgblyc use and exposureSmokeless tobacco non-userNOMS HealthcareStart: 08-24-2024 End: 15-71-2889Lldlwfk of Social functionNOMS HealthcareSexual [facility] Start: 44-89-7292XbkIsdk (finding)[facility] Functional Status IbkmEgwdbunclhVvuclvUqrxzxsi85-43-1946Daygeoirvl StatusN/AExec[facility] Kflbdzt53-50-3447Bfdxrywbxc StatusN/A[facility] [place] 954572-09-2024Functional StatusN/A [facility]11-11-2024Functional StatusN/[facility]09-24-2024Functional StatusN/A[facility] [place] 954571-30-2023Functional StatusN/[facility] Digestive Sbihpn04-52-3203Mxbqrjeref StatusNoFishGreen Cross Hospital Digestive Wvmgly26-50-3851Udzbgauxkn StatusN/[facility] Digestive Wymvpx29-30-8900Zolehkljph StatusN/[facility] Digestive Health 06548117-44-2967Nhuwrzhtop StatusN/[facility] Clinical Notes 03-31-2022 to 08-23-2025 Note Date & InahRaoqZmsnmauf82-61-2138 Telephone encounter Note* Telephone Encounter - Sammy Esposito - 08/23/2025 10:48 AM EDT Radha called and advised of message, she took verbal order from me. [facility] CenterMmzufwwptm44-66-3430 Miscellaneous Notes* Telephone Encounter - Sammy Esposito [...] where to send orders. documented in this encounterMercy Hospital [facility], formerly St. [facility]'s Medical CenterTebjcsigza14-29-1513 Telephone encounter Note* Telephone Encounter - Claritza [...] let us know where to send orders. [facility] CenterOmgctlwzno84-01-0649 [facility] Patient: Nadir Beth; 85 y.o. Visit date: 08/01/25 Reason for today's visit: Follow up for CKD stage 3, Hypertension, Edema/ Fluid overload, and Electrolytes disturbances SUBJECTIVE: BACKGROUND: Nadir Beth is a 85 y.o. male has a past medical history of Abnormal ECG, Arrhythmia, Atrial fibrillation ([facility]), CHF (congestive heart failure) ([facility]), Chronic kidney disease, COPD (chronic obstructive pulmonary disease) ([facility]), Coronary artery disease, Diabetes mellitus ([facility]), Heart valve disease, Hypertension, Pericardial effusion, Sleep apnea, and Stroke ([facility]). History of paroxysmal atrial fibrillation maintained on anticoagulation with Eliquis, aortic stenosis, renal artery stenosis, and hypertension. He had stenting of the left renal artery from the left radial approach on 05/01/2015 (Express SD 6 mm x 18 mm stent). He was admitted to the [facility] in August 2022 due to hyponatremia, [...] (Bentyl) 10 mg ca (more content not included)...[facility]09-15-2025 NotePHARMACIST CONSULT - REFERRAL 07/31/25 Referring Provider: Ruy Sullivan CNP Clinic: [facility] Nadir Beth is referred to clinic [...] call patient to schedule. Huong Jean PharmD [facility]25[facility]-20[facility] NoteReferring provider agrees with trying edoxaban. Called patient's daughter and conveyed plan, including how to switch between medications. She asked that medication be sent to the [facility] in [place], [place]. She also provided the phone number for the patient's sustainability project coordinator, Radha [[phone]]. Provided instructions for switching between medications. Provided clinic phone number in case of questions or coverage issues. Huong Jean PharmD [facility] 08/03/25 8:37 AMUnClerm[facility]09-15-2025 NotePatient's daughter called to clarify if edoxaban was safe with his aortic valve and kidney disease. Reassured her that the medication had been dose-adjusted for kidney function and that it is safe for his heart valve (patient is s/p TAVR, has no mitral valve stenosis). Huong Jean PharmD [facility] 08/03/25 10:37 [facility]09-15-2025 NotePA was approved through 11/14/25. Called pharmacy and notified them - they will order medication. Huong Jean PharmD [facility] 08/07/25 1:14 [facility]09-15-2025 NoteReceived phone call from the [facility] that patient's edoxaban will require PA. Preferred meds (apixaban and rivaroxaban) are not options due to drug interaction, will need to switch to warfarin if PA is not successful. Cover My Meds stephenson: [id number] Routing to [employer] for completion. Huong Jean PharmD [facility] 08/03/25 10:45 [facility]09-15-2025 NoteCalled Radha (sustainability project coordinator) and she confirmed that edoxaban was picked up and started yesterday (08/09/25). They have discontinued and discarded the Xarelto. He is tolerating the edoxaban well, and they have no further questions. Will follow for labs in [address] [facility] 08/10/25 10:53 [facility]09-15-2025 NoteSUBJECTIVE Reason for Visit: Nadir Beth is a 85 y.o. year old male patient being seen for follow-up appointment. HPI: Nadir Beth is a 85 y.o. year old male with significant medical history of A-fib on Xarelto, hypertension, HFpEF, CKD, recent history of CVA 4 months back, renal artery stenosis transferred from [facility] for acute on chronic heart failure. Patient had history of stroke 4 months back and was in rehab patient has been having progressive lower extremity edema for few days. Patient was advised to increase his Lasix from 20 to 40 mg and blood work was done which showed BNP 6214 and was advised to go to the ED. In [place] ED chest x-ray showed pulmonary vascular congestion [...] on exam. He is scheduled with his sales enablement specialist this week. 06/18/2025 office visit (Dr. Cisneros): [...] available. He continues to be at the [facility] for rehab. I will continue current medications [...] mg, Daily cholecalciferol (VITAMIN (more content not included)...[facility]09-12-2025 History of Present illness Narrative* Barrie Montoya [...] this office take over JOSIAH.] Split-night study ([facility] [place]), split for AHI >= 5. - [...] Hx JOSIAH - (Per Dr. John, pulm [facility]). Failed Semeiology Circadian Noct oxim PSG _ ([facility]) - _ PAPT ([facility]) - AHI=8.1 @ 31/10 (max pressure) MSLT [...] --card) AEs Hx No recent sx. Adm [facility] 04/2025 dysarthria. Onset Semeiology Imaging MR brain (02/2025, [facility]) - rev'd with pt - no report sent - on my review, atrophy mod-sev, 8-10 UBOs, most tiny, 2 mod incl R fro & R splenium ml CTA head (04/2025 [facility] - stenosis R M1 mod CTA neck (04/2025 [facility] - 50% B MRA head (02/2025, [facility]) - no stenoses MRA neck (02/2025, [facility]) - no stenoses, dom R vert US carotids (02/2025, [facility]) - < 50% B by velocity, but mod plaque poss causing stenosis CT head (04/2025, [facility] - hypodensity L caudate 8 mm Testing [...] ? [address] ? [place] [address] ? ? fax Neurology ? Clinical Neurophysiology ? Epilepsy ? Sleep Disorders ? Clinical Informatics documented in this encounterMercy Hospital [facility], formerly [facility]. [facility] CenterRfxcqvuywr22-75-5606 History of Present illness Narrative* Barrie Montoya [...] this office take over JOSIAH. Split-night study ([facility] [place]), split for AHI >= 5. [...] this office take over JOSIAH. Split-night study ([facility] [place]), split for AHI >= 5. [...] AEs Hx JOSIAH - [facility] Failed Semeiology Circadian Noct oxim PSG _ ([facility]) - _ PAPT ([facility]) - AHI=8.1 @ 31/10 (max pressure) MSLT [...] --card) AEs Hx No recent sx. Adm [facility] 04/2025 dysarthria. Onset Semeiology Imaging MR brain (02/2025, [facility]) - rev'd with pt - no report sent - on my review, atrophy mod-sev, 8-10 UBOs, most tiny, 2 mod incl R fro & R splenium ml CTA head (04/2025 [facility] - stenosis R M1 mod CTA neck (04/2025 [facility] - 50% B MRA head (02/2025, [facility]) - no stenoses MRA neck (02/2025, [facility]) - no stenoses, dom R vert US carotids (02/2025, [facility]) - < 50% B by velocity, but mod plaque poss causing stenosis CT head (04/2025, [facility] - hypodensity L caudate 8 mm Testing [...] Barrie Montoya M.D. [facility] ? [address] [facility] [place] [address] ? [place] [address] ? ? fax Neurology ? Clinical Neurophysiology ? Epilepsy ? Sleep Disorders ? Clinical Informatics documented in this encounterMercy Hospital [facility], formerly [facility]. [facility] CenterVglcosrnaq22-35-8000 History of Present illness Narrative* Blaise Chicas [...] Strain: Low Risk (05/10/2025) Received from [facility] Overall Financial Resource Strain (CARDIA) Difficulty of Paying Living Expenses: Not hard at all Food Insecurity: No Food Insecurity (05/10/2025) Received from [facility] Hunger Vital Sign Within the past 12 months, you worried that your food would run out before you got the money to buymore.: Never true Ran Out of Food in the Last Year: Not on file Transportation Needs: No Transportation Needs (05/10/2025) Received from [facility] Transportation In the past 12 months, has lack of transportation kept you from medical appointments or from getting medications?: No Lack of Transportation (Non-Medical): Not on file Physical Activity: Not on file Stress: Not on file Social Connections: Not on file Intimate Partner Violence: Unknown (05/10/2025) Received from [facility] Humiliation, Afraid, Rape, and Kick questionnaire Fear of Current or Ex-Partner: No Emotionally Abused: Not on file Physically Abused: Not on file Sexually Abused: Not on file Housing Stability: Low Risk (05/10/2025) Received from [facility] Housing Stability Vital Sign In the last 12 months, was there a time when you were not able to pay the mortgage or rent on time?: No Number of Times Moved in the Last Year: Not on file At any time in the past 12 months, were you homeless or living in a halfway (including now)?: No ROS: Gastrointestinal: denies abdominal [...] and negative PT pedal pulses NEURO: 5.07 [place] monofilament test diminished to digits and forefoot bilaterally 125Hz tuning fork diminished to 1st MPJ bilaterally ORTHO: Positive pain on palpation to nails 1 through 10 Minimal pain on palpation of right foot lesion ASSESSMENT 1. Verruca plantaris 2. Foot pain, right 3. Diabetes mellitus due to underlying condition with diabetic polyneuropathy, unspecified whether group home insulin use (HCC) 4. Pain due to [...] Blaise Chicas DPM documented in this encounterMercy Hospital South, formerly St. [facility] CenterQddphdgkgs62-97-7762 NoteUT Cardiology - [facility] Subjective Nadir Beth is a [...] he was referred to see pulmonary at [facility] and daughter wants to know if they can see someone more locally. Patient Active Problem List Diagnosis Aortic valve disorder Atherosclerosis of renal artery Chronic atrial fibrillation (CMS/HCC) Coronary arteriosclerosis Bradycardia Aortic valve stenosis Type 1 diabetes mellitus ([facility]) Type 2 diabetes mellitus with stage 3 chronic kidney disease, without long-term current use of insulin ([facility]/HCC) Stage 3 chronic kidney disease ([facility]/HCC) Sleep apnea Pulmonary edema Primary hypertension Dyspnea [...] bladder) Post-void dribbling Pulmonary heart disease, unspecified ([facility]) Abnormal findings on diagnostic imaging of heart and coronary circulation Primary hypertension Acute congestive heart failure ([facility]/HCC) History of CVA (cerebrovascular accident) Type 2 diabetes mellitus, with long-term current use of insulin ([facility]) Other hyperlipidemia Chronic atrial fibrillation ([facility]) Chest pain Angina pectoris, unstable ([facility]) Chronic kidney disease Elevated troponin Nonrheumatic aortic [...] He was admitted to the [facility] in August 2022 due to hyponatremia, hyperkalemia and acute kidney injury, leukocytosis secondary to COVID-19 causing dehydration. I saw him on 05/24/2023 and the office and he had significant evidence of volume overload by exam and echocardiogram. I intensified his diuretic regimen. He ended up getting admitted to the [facility] with acute heart failure exacerbation and [...] On 02/14/2025 he was admitted to the [facility] with altered mental statu (more content not included)...[facility] 06-12-2025 NotePatient Education Urology Benign Prostatic Hyperplasia [...] Follow these instructions at home: ??? Take yoyp-wfq-rqwlghm and prescription medicines only as told by [...] symptoms do not get (more content not included)...[facility]07-14-2025 NoteSUBJECTIVE Reason for Visit: Nadir Beth is a 85 y.o. year old male patient being seen for status post TAVR follow-up. HPI: Nadir Beth is a 85 y.o. year old male with significant medical history of A-fib on Xarelto, hypertension, HFpEF, CKD, recent history of CVA 4 months back, renal artery stenosis transferred from [facility] for acute on chronic heart failure. Patient had history of stroke 4 months back and was in rehab patient has been having progressive lower extremity edema for few days. Patient was advised to increase his Lasix from 20 to 40 mg and blood work was done which showed BNP 6214 and was advised to go to the ED. In [place] ED chest x-ray showed pulmonary vascular congestion [...] oral, 3 times daily (more content not included)...[facility]07-03-2025 Note Physical Therapy Physical Therapy Treatment Patient [...] Clicks T-Score: 18 Assessment/Plan PT Assessment PT Assessment/REGULATORY COMPLIANCE DIRECTOR Summary: The patient tolerated the PT session [...] chair alarm were reconnecte (more content not included)...[facility]07-03-2025 NoteCardiology Inpatient Progress Note Subjective Reason for consult: Acute on chronic HFpEF, hypertension urgency, TAVR. HPI: Nadir Beth is a 85 y.o. year old male with significant medical history of A-fib on Xarelto, hypertension, HFpEF, CKD, recent history of CVA 4 months back, renal artery stenosis transferred from [facility] for acute on chronic heart failure. Patient had history of stroke 4 months back and was in rehab patient has been having progressive lower extremity edema for few days. Patient was advised to increase his Lasix from 20 to 40 mg and blood work was done which showed BNP 6214 and was advised to go to the ED. In [place] ED chest x-ray showed pulmonary vascular congestion [...] Daily with even (more content not included)... [facility]07-03-2025 NoteDischarge Planning MATHEW sent updates through [facility] to [facility]. Patient is medically ready for discharge. MATHEW confirmed facility is able to accept patient today. MATHEW set up ambulance transport with [facility] for 7:35 PM. Call report # ([phone]. Patient and his family notified. Treatment team and facility notified. DC packet left with patient's physical chart.[facility]07-03-2025 NotePhysical Therapy A PT treatment was attempted, however the patient was unavailable and out of the room. Will continue to follow patient for PT intervention.[facility]07-03-2025 NoteCardiothoracic Surgery Progress Note 05/17/2025 Room: [address] [place] [address] Subjective Sitting in bed. No complaints. Denies [...] Cardiothoracic Surgery Inpatient from 8am-4pm call Ascom #[phone]. Only use Ayla chat for general questions. If unable to reach Ascom Number call hospital non garment sewing machine operator for Cardiothoracic Provider Millinery Blocker. Cardiothoracic Surgery outpatient Office Number [phone]. Cardiothoracic Surgery outpatient .[facility]07-03-2025 Note Attestation signed by Nikolas Gonzalez MD [...] anticoagulation should be held. Nikolas Gonzalez MD [facility] Physicians Pulmonary and Critical Care Medicine Primary Pulmonology Progress Note Patient - Nadir Beth Age - 85 y.o. - 1940 [facility] # - [id number] Date of Admission - 05/10/2025 2:37 AM [...] was admitted as a direct transfer from [place] on 05/10/2025 for acute on chronic heart failure. 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 He presented to the ED on the advice of his physician following an increase in lower extremity edema with associated labs showing a BNP 6200. In the [place] ED he was found to have pulmonary vascular congestion with right sided pleural effusion on chest x-ray, and found to be hypertensive at 190/68, and EKG showed A-fib, he was initially managed medically with lasix and antihypertensives prior to transfer. Patient follows up with Dr. Bland who had scheduled right heart cath on 05/10/2025. At [facility] echo was performed which was unable [...] ABG: No results found for: PHART , JVW9NVD , PO2ART , ERC3ZRT , IONCALART No results found for: PHVEN , STD5TYO , PO2VEN , GQU6PXN , IONCALVEN CBC: Results from last 7 [...] 0339 05/14/25 0338 SODIUM (more content not included)...[facility] 05-16-2025 NotePhysical Therapy Patient defers session at this time due to significant fatigue and headache. Patient recently transferred out of MICU status post TAVR on 05/15. PT will check back at a later time to complete session.[facility] 05-16-2025 Note Attestation signed by García Muir [...] Beth Age - 85 [facility] 1940 [id number] Date of Admission - 05/10/2025 2:37 AM HPI/Hospital Course Subjective Nadir Beth is an 85 y.o. male with a PMH of HFpEF, paroxysmal A-fib on Xarelto, CVA, T2DM, hypertension, renal artery stenosis left renal stent, and hyperlipidemia who was admitted as a direct transfer from [place] on 05/10/2025 for acute on chronic heart failure. 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 He presented to the ED on the advice of his physician following an increase in lower extremity edema with associated labs showing a BNP 6200. In the [place] ED he was found to have pulmonary vascular congestion with right sided pleural effusion on chest x-ray, and found to be hypertensive at 190/68, initially managed medically with lasix and antihypertensives prior to transfer. At [facility] echo was performed which was unable [...] ABG: No results found for: PHART , FGP8IHH , PO2ART , JGO3XLM , IONCALART No results found for: PHVEN , AAK0MAO , PO2VEN , BAA4HYY , IONCALVEN CBC: Results from last 7 [...] 9.3* Cardiac: Results from (more content not included)...[facility] 05-16-2025 NoteOccupational Therapy Name: Nadir Beth Date [...] as appropriate. Check No Charge Time attempted: 1004Un[facility] NoteCardiology Inpatient Progress Note Subjective Reason for consult: Acute on chronic HFpEF, hypertension urgency, TAVR. HPI: Nadir Beth is a 85 y.o. year old male with significant medical history of A-fib on Xarelto, hypertension, HFpEF, CKD, recent history of CVA 4 months back, renal artery stenosis transferred from [facility] for acute on chronic heart failure. Patient had history of stroke 4 months back and was in rehab patient has been having progressive lower extremity edema for few days. Patient was advised to increase his Lasix from 20 to 40 mg and blood work was done which showed BNP 6214 and was advised to go to the ED. In [place] ED chest x-ray showed pulmonary vascular congestion [...] 95 % -- 0 (more content not included)...[facility]07-02-2025 NoteCardiothoracic Surgery Progress Note 05/16/2025 Room: [address] [place] [address] Nadir Beth is a 85 y.o. male [...] (TTE) limited Result Date: 05/15/2025 1 [facility] Heart Station [address] [place] [address] [phone] (fax) Echocardiogram-[facility] Name: NADIR BETH Study Date: 05/15/2025 12:46 PM B/P: 171 mmHg/100 mmHg HR: 87 bpm Date of : 1940 Location: [facility] Height: 72 in. Age: 85 (more content not included)...[facility]07-01-2025 NoteName: Nadir Beth Date of : 1940 Today's Date: 05/15/25 Pt is unable to be seen for Physical Therapy at this time secondary to: per RN, pt currently off floor for TAVR. Will check back and complete therapy session as appropriate. Check No Charge Time attempted: 1515Un[facility]07-01-2025 Note Occupational Therapy Name: Nadir Beth Date of : 1940 Today's Date: 05/15/25 Pt is unable to be seen for therapy at this time secondary to Pt is off unit for TAVR. Will check back and complete therapy session as appropriate. Check No Charge Time attempted: 1501UnClerm[facility]07-01-2025 NoteNot sure baseline kidney function, creatinine today 1.61 Will decrease Lasix to 40 mg dailyUnClermont County Hospital07-01-2025 NoteAcute on chronic heart failure with preserved [...] CABG/AVR specially with [facility] of [facility]AUniversity [facility]07-01-2025 NoteHighest troponin went up to 26 Likely combination of chronic kidney disease and CHFUnClermont County Hospital07-01-2025 NoteContinue ZetiaUnClermont County Hospital 05-15-2025 NoteContinue sliding scale insulin A1c came back of 9.3UnClermont [facility]07-01-2025 NoteContinue current clonidine 0.2/3 times daily, hydralazine 25/ 3 times daily and labetalolUnClermont County Hospital07-01-2025 NoteCHADS2 DS vascular score is 7 currently on Xarelto Patient already on labetalolUnClermont County Hospital07-01-2025 NoteOn aspirin and ZetiaUnClermont County Hospital07-01-2025 NoteHospital Medicine Daily Progress Note - 05/15/2025 1:08 PM; Room: [address] [place] [address] Admission: 05/10/2025 2:37 AM; Length of stay: 5 days THE HOSPITALIST TEAM PREFERS TO USE [employer] CHAT FOR NON-URGENT COMMUNICATION 7AM-7PM. IF I DO NOT RESPOND WITHIN 20 MINUTES OR URGENT MATTERS, PLEASE CALL THROUGH THE COMMUNITY DEVELOPMENT AIDE. FROM 7PM-7AM, PLEASE PAGE [phone](COVR). Code Status: Full Code Barriers to Discharge: [...] daily and labetalol Acute congestive heart failure ([facility]) Acute on chronic [...] mellitus, with long-term current use of insulin ([facility]) Continue sliding scale insulin A1c came back of 9.3 Other hyperlipidemia Continue Zetia Chronic atrial fibrillation ([facility]) CHADS2 DS vascular [...] last 7 days Lab (more content not included)...[facility]07-01-2025 NoteCardiology Inpatient Progress Note Subjective Reason for consult: Acute on chronic HFpEF, hypertension urgency, TAVR. HPI: Nadir Beth is a 85 y.o. year old male with significant medical history of A-fib on Xarelto, hypertension, HFpEF, CKD, recent history of CVA 4 months back, renal artery stenosis transferred from [facility] for acute on chronic heart failure. Patient had history of stroke 4 months back and was in rehab patient has been having progressive lower extremity edema for few days. Patient was advised to increase his Lasix from 20 to 40 mg and blood work was done which showed BNP 6214 and was advised to go to the ED. In [place] ED chest x-ray showed pulmonary vascular congestion [...] (163 lb) SpO2 96% (more content not included)...[facility]07-01-2025 NotePatient: Nadir Palaciocailinnathaniel Procedure Information Date/Time: 05/15/25 1100 Procedure: TAVR Location: [facility] EXCEPTIONAL STUDENT EDUCATION AIDE 3 / [facility] (Cath) Providers: Claribel Cisneros MD [...] who consented to blood products. Additional Equipment RequestsUniversity Hospitals St. [facility]06-30-2025 Note Physical Therapy Physical Therapy Treatment Patient [...] implement solutions Communication: (decreased communication with this REGULATORY COMPLIANCE DIRECTOR d/t lethargy) General Assessment General Assessment Hearing: T[place] - family reports he has hearing aids [...] to a chair (in (more content not included)...[facility]06-30-2025 NotePatient was admitted to the hospital for: [...] Dias, RN, BSN Cardiology Outpatient Coordinator Cardiopulmonary RehabUnClermont County Hospital06-30-2025 NoteContinue ZetiaUnClermont County Hospital06-30-2025 NoteOn aspirin and Zetia [facility]06-30-2025 NoteAcute on chronic heart failure with preserved [...] grafting/AVR specially with history of CVAUniversity of [facility] 05-14-2025 NoteHighest troponin went up to 26 Likely combination of chronic kidney disease and CHFUnClermont County Hospital06-30-2025 NoteContinue current clonidine 0.2/3 times daily, hydralazine 25/ 3 times daily and labetalolUnClermont County Hospital06-30-2025 NoteCHADS2 DS vascular score is 7 currently on Xarelto Patient already on labetalolUnClermont County Hospital06-30-2025 Note Not sure baseline kidney function, creatinine today 1.74 Will decrease Lasix to 40 mg dailyUnClermont County Hospital06-30-2025 NoteContinue sliding scale insulin A1c came back of 9.3[facility]06-30-2025 NoteHospital Medicine Daily Progress Note - 05/14/2025 12:11 PM; Room: [address] [place] [address] Admission: 05/10/2025 2:37 AM; Length of stay: 4 days THE HOSPITALIST TEAM PREFERS TO USE [employer] FOR NON-URGENT COMMUNICATION 7AM-7PM. IF I DO NOT RESPOND WITHIN 20 MINUTES OR URGENT MATTERS, PLEASE CALL THROUGH THE COMMUNITY DEVELOPMENT AIDE. FROM 7PM-7AM, PLEASE PAGE [phone](COVR). Code Status: Full Code Barriers to Discharge: [...] mellitus, with long-term current use of insulin ([facility]) Continue sliding scale insulin A1c came back of 9.3 Other hyperlipidemia Continue Zetia Chronic atrial fibrillation ([facility]) CHADS2 DS vascular [...] prior to this (more content not included)... [facility]06-30-2025 NoteOccupational Therapy Occupational Therapy Treatment Patient Name: Nadir Bteh : 1940 Today's Date: 05/14/2025 Start Time: [...] friendly and cooperative Session Comments: Upon arrival writer producer noted pts male purwick had leaked. Brief [...] Assistance: Contact guard Static Sitting-Comment/Number of Minutes: Top Cutter noted posterior lean while utilizing B UE's in bathing task. Tactile cues required to writer producer self Dynamic Sitting Balance Dynamic Sitting Balance [...] Eating meals?: None (Independent) Total Score OT [facility]: 21 Assessment/Plan OT Assessment OT Impairments: [...] Strengths: Support of extended (more content not included)...[facility]06-30-2025 NoteCardiology Inpatient Progress Note Subjective Reason for consult: Acute on chronic HFpEF, hypertension urgency, TAVR. HPI: Nadir Beth is a 85 y.o. year old male with significant medical history of A-fib on Xarelto, hypertension, HFpEF, CKD, recent history of CVA 4 months back, renal artery stenosis transferred from [facility] for acute on chronic heart failure. Patient had history of stroke 4 months back and was in rehab patient has been having progressive lower extremity edema for few days. Patient was advised to increase his Lasix from 20 to 40 mg and blood work was done which showed BNP 6214 and was advised to go to the ED. In [place] ED chest x-ray showed pulmonary vascular congestion [...] No wheezes, rales (more content not included)... [facility]06-30-2025 Notedischarge planning: return to [facility] 0917 updates sent to [facility], via [employer] system [address]; notice sent to SNF, via [employer] system, with request to confirm bed availability today 1028 SNF has bed today but Discharge Order has been removed for Patient to have TAVR tomorrow; SNF notified via [employer] system discharge barriers: [] no insurance precert needed for SNF, but confirm bed at discharge [] [facility]06-30-2025 NoteSTS Scoring for Surgical AVR, plan to [...] 31.3%, WBC Count: 10.18 10???/?L, Platelet Count: [id number] cells/?L PreOp Medications: Insulin diabetes control Risk Factors / Comorbidities: Insulin-dependent Diabetes Mellitus, Hypertension Vascular RF: Cerebrovascular Disease: CVA <= 30 days Cardiac Status: Chronic heart failure, Ejection Fraction = 50% Valve Disease: Aortic Stenosis, Mild AR, Mild MR Arrhythmia: Recent A-fib, ParoxysmalUnClermont County Hospital 05-13-2025 NoteHighest troponin went up to 26 Likely combination of chronic kidney disease and CHFUnClermont County Hospital06-29-2025 NoteNot sure baseline kidney function, creatinine today 1.[address] [facility]06-29-2025 NoteCHADS2 DS vascular score is 7 currently on Xarelto Patient already on labetalolUnClermont County Hospital06-29-2025 Note Continue ZetiaUnClermont County Hospital06-29-2025 NoteAcute on chronic heart failure with preserved [...] grafting/AVR specially with history of CVAUniversity of [facility] 05-13-2025 NoteContinue sliding scale insulin A1c came back of 9.3UnClermont County Hospital06-29-2025 NoteContinue current clonidine 0.2 3 times daily, hydralazine 25 3 times daily and labetalolUnClermont County Hospital06-29-2025 NoteOn aspirin and Zetia [facility]06-29-2025 NoteHospital Medicine Daily Progress Note - 05/13/2025 10:51 AM; Room: [address] [place] [address] Admission: 05/10/2025 2:37 AM; Length of stay: 3 days THE HOSPITALIST TEAM PREFERS TO USE [employer] CHAT FOR NON-URGENT COMMUNICATION 7AM-7PM. IF I DO NOT RESPOND WITHIN 20 MINUTES OR URGENT MATTERS, PLEASE CALL THROUGH THE COMMUNITY DEVELOPMENT AIDE. FROM 7PM-7AM, PLEASE PAGE [phone](COVR). Code Status: Full Code Barriers to Discharge: [...] mellitus, with long-term current use of insulin ([facility]) Continue sliding scale insulin A1c came back of 9.3 Other hyperlipidemia Continue Zetia Chronic atrial fibrillation ([facility]) CHADS2 DS vascular [...] 05/11/2025 LDL 118 05/11/20 (more content not included)...[facility]06-29-2025 NoteCardiology Inpatient Progress Note Subjective Reason for consult: Acute on chronic HFpEF, hypertension urgency HPI: Nadir Beth is a 85 y.o. year old male with significant medical history of A-fib on Xarelto, hypertension, HFpEF, CKD, recent history of CVA 4 months back, renal artery stenosis transferred from [facility] for acute on chronic heart failure. Patient had history of stroke 4 months back and was in rehab patient has been having progressive lower extremity edema for few days. Patient was advised to increase his Lasix from 20 to 40 mg and blood work was done which showed BNP 6214 and was advised to go to the ED. In [place] ED chest x-ray showed pulmonary vascular congestion [...] pulsations or distension. Bowel (more content not included)...[facility]06-28-2025 NoteCHADS2 DS vascular score is 7 currently on Xarelto Patient already on labetalolUnClermont County Hospital06-28-2025 Note Not sure baseline kidney function, creatinine today 1.63UnClerm[facility]06-28-2025 NoteContinue sliding scale insulin A1c came back of 9.3UnClermont County Hospital06-28-2025 NoteHighest troponin went up to 26 Likely combination of chronic kidney disease and CHFUnClermont County Hospital06-28-2025 NoteAcute on chronic heart failure with preserved [...] grafting/AVR specially with history of CVAUniversity of [facility] 05-12-2025 NoteContinue current clonidine 0.2 3 times daily, hydralazine 25 3 times daily and labetalolUnClermont County Hospital06-28-20[address] NoteContinue [address] [facility]06-28-2025 NoteOn aspirin and ZetiaUnClermont County Hospital06-28-2025 NoteHospital Medicine Daily Progress Note - 05/12/2025 12:25 PM; Room: 3122/3122-01 Admission: 05/10/2025 2:37 AM; Length of stay: 2 days THE HOSPITALIST TEAM PREFERS TO USE [employer] FOR NON-URGENT COMMUNICATION 7AM-7PM. IF I DO NOT RESPOND WITHIN 20 MINUTES OR URGENT MATTERS, PLEASE CALL THROUGH THE COMMUNITY DEVELOPMENT AIDE. FROM 7PM-7AM, PLEASE PAGE [phone](COVR). Code Status: Full Code Barriers to Discharge: [...] mellitus, with long-term current use of insulin ([facility]) Continue sliding scale insulin A1c came back of 9.3 Other hyperlipidemia Continue Zetia Chronic atrial fibrillation ([facility]) CHADS2 DS vascular [...] LDL 118 05/11/2025 No results found for: [id number] , IRON , TI (more content not included)... [facility]06-28-2025 Note Attestation signed by Nicole Reynolds MD [...] TAVR. Nicole Reynolds MD, ScM, MSc Cardiac Crown Perforator Operator Email: [email or web address] Nicole Reynolds MD, ScM, MSc Cardiac Crown Perforator Operator Email: [email or web address] Cardiology Progress Note Subjective Patient [...] Bubble Study Result Date: 05/10/2025 1 1 [facility] Heart Station [address] [place] [address] [phone] (fax) Echocardiogram-[facility] Name: NADIR BETH Study Date: 05/10/2025 09:19 AM B/P: 178 mmHg/92 mmHg HR: 104 bpm Date of : 1940 Location: [facility] Height: 72 in. Age: 85 year(s) [...] 2D 24.6 ml/m2 LVO (more content not included)...[facility]06-27-2025 Note. No associated orders from this encounter found during lookback period of [address]06-27-2025 NoteCOrders from past 72 hours: Case Request Welder: Coronary angiography, Right heart cath; Standing Cardiac catheterization; StandingUnClermont County Hospital06-27-2025 NoteInsulin blood sugar check diet A1c came back of 9.3UnClermont County Hospital06-27-2025 NoteHighest troponin went up to 26 Likely combination of chronic kidney disease and CHFUnClermont County Hospital06-27-2025 NoteNot sure baseline kidney function, creatinine today 1.56, will monitorUnClermont County Hospital06-27-2025 NoteCHADS2 DS vascular score is 7 currently on Eliquis Patient on heparin drip and plan to switch on Eliquis after procedure Patient already on labetalolUnClermont County Hospital06-27-2025 Note Continue ZetiaUnClermont County Hospital06-27-2025 NoteAcute on chronic heart failure with preserved EF BNP of 736 Echo 05/10 showed EF preserved. Moderate AAS and AR, mild MR and TR Patient scheduled for cardiac cath today Lasix 40 IV every 8 hours Continue goal-directed medical therapy Farxiga, labetalol, Aldactone Uptitrate meds after Cardiac cathUnClermont County Hospital06-27-2025 NoteContinue current clonidine 0.2 3 times daily, hydralazine 25 3 times daily and labetalolUnClermont County Hospital06-27-2025 NoteOn aspirin statin with deconditioning and gait abnormality with fall risk PT OT [facility]UnCl[facility]06-27-2025 NoteHospital Medicine Daily Progress Note - 05/11/2025 4:14 PM; Room: [address] [place] [address] Admission: 05/10/2025 2:37 AM; Length of stay: 1 days THE HOSPITALIST TEAM PREFERS TO USE [employer] CHAT FOR NON-URGENT COMMUNICATION 7AM-7PM. IF I DO NOT RESPOND WITHIN 20 MINUTES OR URGENT MATTERS, PLEASE CALL THROUGH THE COMMUNITY DEVELOPMENT AIDE. FROM 7PM-7AM, PLEASE PAGE [phone](COVR). Code Status: Full Code Barriers to Discharge: [...] daily and labetalol Acute congestive heart failure ([facility]) Acute on chronic [...] mellitus, with long-term current use of insulin ([facility]) Insulin blood sugar check diet A1c came back of 9.3 Other hyperlipidemia Continue Zetia Chronic atrial fibrillation ([facility]) CHADS2 DS vascular [...] LDL 118 05/11/2025 No results found for: [id number] , IRON , TIBC , C3 , C4 , SHERRY , CANCA , ASO , PSA , CEA , CA125 , CA199 , AFP , CA153 Imaging Complete Echo (TTE) w/wo Imaging Agent, Strain, 3D, Bubble Study 1 1 [facility] Heart Station [address] [place] [address] [phone] (fax) Echocardiogram-[facility] Name: (more content not included)...[facility]06-27-2025 Notedischarge planning: to return to [facility] updates sent to [facility], via [employer] system discharge barriers: [] no insurance precert needed for any placement from this admission, but confirm bed still available before discharge [] [facility]06-27-2025 NoteCTA CHEST W IV CONTRAST 05/11/2025 1:46 [...] 3 cusped view, anterior view, and no BIT WELDER-CAU view are saved in 3-D volume rendered [...] of 26 mm Electronically signed: Yenni Stafford MD.[facility] Comment on above:Order Comment: Patient had pre procedure medications already for [id number] Note Attestation signed by Azeem Green MD at 05/11/2025 4:45 PM I personally saw and examined the patient on rounds and agree with the assessment and plan of the medical assistant instructor Cardiology Progress Note Subjective Patient was examined at the bedside. No acute events overnight. Patient scheduled for cardiac cath today. Objective Current Medications[1] Objective: Patient Vitals for the past 24 hrs: BP Temp Temp src Pulse Resp SpO2 Weight 05/11/25 0800 149/57 36.5 ???C (97.7 ???F) [facility] 72 14 97 % -- 05/11/25 0600 [...] Bubble Study Result Date: 05/10/2025 1 1 [facility] Heart Station [address] [place] [address] [phone] (fax) Echocardiogram-[facility] Name: NADIR BETH Study Date: 05/10/2025 09:19 AM B/P: 178 mmHg/92 mmHg HR: 104 bpm Date of : 1940 Location: [facility] Height: 72 in. Age: 85 year(s) [...] The left atr (more content not included)... [facility]06-27-2025 NotePhysical Therapy Physical Therapy Treatment Patient Name: [...] time General Assessment General Assessment Hearing: Mild [place] Hand Dominance: Right Static Sitting Balance Static [...] Clicks T-Score: 18 Assessment/Plan PT Assessment PT Assessment/REGULATORY COMPLIANCE DIRECTOR Summary: Patient is a 85 y/o male [...] Date LTG - Janay (more content not included)...[facility] 05-11-2025 NotePatient: Nadir Beth Procedure Information Date/Time: 05/11/25 1130 Procedures: Coronary angiography Right heart cath Location: [facility] EXCEPTIONAL STUDENT EDUCATION AIDE 3 / [facility] (Cath) Providers: Aissatou Hughes MD [...] who consented to blood products. Additional Equipment RequestsUniversity [facility]als St. [facility]06-[facility]25 Note Attestation signed by Landen Rice PT at 05/10/2025 3:50 PM This writer producer (PT) provided one-on-one supervision, direction of patient [...] an 85 y/o male admitted 05/10/25 from [facility] where he presented following outpatient labs [...] Intact General Assessment General Assessment Hearing: mild [place] Hand Dominance: Right Home Living Home Living [...] Level of Function Prior Function Level of [place]: Independent with ADLs and functional transfers, Independent [...] LE strength req (more content not included)... [facility]06-26-2025 Note05/10/25 1520 Admission Assessment Questions Verify insurance [...] back? Yes Pharmacy Bedside Delivery Status Interested ([facility] in [facility]) Does the patient have a patient case manager assigned to them through their insurance? No Living Arrangement (Current/Prior to Hospitalization) Private residence;Inpatient rehab facility (2 story house w/ 5 steps. Lives with his and she is able to help after discharge as needed. Came to us from [facility] x 3 weeks / Bedhold.) Does the patient have history of HHC or SNF? Yes (Hx HHC et Current SNF.) Assistive Device Walker;Wheelchair (@ [facility]. Walker at home.) Patient's goal for discharge [facility] Was patient reminded that goal for [...] the patient's family members at his bedside. [facility]06-26-2025 NoteOccupational Therapy Occupational Therapy Evaluation Patient Name: [...] Intact General Assessment General Assessment Hearing: (mild [place]) Hand Dominance: Right Home Living Home Living Type of Home: House Lives With: Spouse Home Adaptive Equipment: Walker rolling, Cane (sc, g[facility], [facility]) Home Layout: One level Home Access: Stairs to enter with rails (5) Bathroom Shower/Tub: Tub/shower unit Prior Level of Function Prior Function Level of [place]: Independent with ADLs and functional transfers, Independent [...] Eating meals?: None (Independent) Total Score OT [facility]: 21 Assessment/Plan OT Assessment OT Impairments: Decreased ADL status, Decreased endurance, Decreased functional mobility OT Assessment/TRACER POWDER BLENDER Summary: (needs skilled OT due to weakness [...] current use of insu (more content not included)...[facility]06-26-2025 NoteDaily Case Management Update Barriers to Discharge et per Progress Note: Transfer from [facility] for elevated BNP et BLE Edema. [...] Reason for OT? Answer: gait abnormality 05/10/[address]06-26-2025 NotePer review of chart patient has diastolic heart failure had history of pericardial effusion as well we will optimize guideline directed medical therapy with limitation due to renal insufficiency obtain echocardiogram cycle troponins cardiology to see [facility]06-26-2025 NoteInsulin blood sugar check [facility]06-26-2025 Note Antilipemic agents [facility]06-26-2025 NoteOn aspirin statin with deconditioning and gait abnormality with fall risk PT OT to see [facility]06-26-2025 NoteAdjust antihypertensives low-salt diet with renal insufficiency unable to start [facility]-2025 NoteCHADS2 DS vascular score is 7 currently on Eliquis Chronic kidney disease stage IIIb avoid nephrotoxic meds hypovolemia nephrology consultUnClermont County Hospital06-26-2025 NoteHospital Medicine History and Physical 05/10/2025 4:12 AM THE HOSPITALIST TEAM PREFERS TO USE [employer] FOR NON-URGENT COMMUNICATION 7AM-7PM. IF I DO NOT RESPOND WITHIN 20 MINUTES OR URGENT MATTERS, PLEASE CALL THROUGH THE COMMUNITY DEVELOPMENT AIDE. FROM 7PM-7AM, PLEASE PAGE [phone](COVR). Chief Complaint No chief complaint on file. History of Present Illness Nadir Turner is an 85 y.o. male admitted as a direct transfer from [facility] where he presented following outpatient labs [...] pulses. Heart sounds: Normal heart sounds. Comments: [id number] s4 systolic murmur Pulmonary: Effort: Pulmonary effort [...] JAY or ARB Acute congestive heart failure ([facility]) Per review of chart patient [...] mellitus, with long-term current use of insulin ([facility]) Insulin blood sugar check diet Other hyperlipidemia Antilipemic agents diet Chronic atrial fibrillation ([facility]) CHADS2 DS vascular [...] this hospital stay by a member of [facility]. Past Medical History Medical History[1] Past Surgical History Surgical History[2] Social History Social History Socioeconomic History Marital status: Not on file Spouse name: Not on file Number of children: Not on file Years of education: Not on file Highest education level: Not on file Occupational History Not on file Tobacco Use Smoking status: Former Types: Cigarettes S (more content not included)...[facility]06-24-2025 History of Present illness Narrative* Mony Herron [...] titration study Managed by Dr John in [place] * Mony Herron NP - 05/08/2025 2:00 [...] complaint on file. Appointment Note -- FU ([facility] Patient is here today for post stroke [...] titration study Managed by Dr John in [place] Carotid stenosis, bilateral Plan redo US carotids 2026. Polyneuropathy (Continue current regimen.) No orders of the defined types were placed in this encounter. Follow-Up - No follow-ups on file. History of Present Illness, Associated Treatments and Results - Dx (JOSIAH) Tx OFF BiPAP @ 31/10 AEs Hx JOSIAH - (Per Dr. John, pulm [place]). Failed Semeiology Circadian Noct oxim PSG _ ([place]) - _ PAPT ([place]) - AHI=8.1 @ 31/10 (max pressure) MSLT [...] UBOs Tx ASA AEs Hx Recent adm [place] for confusion. Now baseline. Images rev'd. No clear cognitive decline. Denies forgetting names, leaving tools/stove on, getting lost, etc. Onset Semeiology Imaging MR brain (02/2025, [place]) - rev'd with pt - no report sent - on my review, atrophy mod-sev, 8-10 UBOs, most tiny, 2 mod incl R fro & R splenium CC MRA head (02/2025, [place]) - no stenoses MRA neck (02/2025, [place]) - no stenoses, dom R vert US carotids (02/2025, [place]) - < 50% B by velocity, but mod plaque poss causing stenosis Testing Surgery Failed Dx L BASAL GANGLIA STROKE/WMD/ATROPHY Tx (Continue ASA, Xeralto ?, statin.) AEs Hx Onset 02030 AMS and garbled speech Semeiology To [facility]. [facility] and MRI showed stroke ? Subacute. Eliquis changed to Xeralto. DC to [facility] for Skilled therapy. Imaging CT Head (04/2025 [facility]) 8mm hypodensity in left caudate nucleus MRI Brain (04/2025 [facility]) Subacute left basal ganglia ischemia, mild WMD, moderate atrophy CTA H/N (04/2025 [facility]) 50% ICA stenosis B. Moderate M1 right MCA stenosis Testing Echo (04/2025 [facility]) EF 65-70%, Aortic sclerosis, severe PHT RSVP [...] 05/08/2025. [facility] ? [address] [facility] [address] ? [place] [id number] ? ? fax Neurology ? Clinical Neurophysiology ? Epilepsy ? Sleep Disorders ? Clinical Informatics documented in this encounterMer[facility], formerly [facility] [id number] NoteUT Cardiology - [facility] Subjective Nadir Beth is a 85 y.o. year old male patient being seen for follow up CVA. Patient was in [place] for 4 days. Patient complains of HERNANDEZ and leg swelling, high blood sugars. Patient is at the [facility] for rehab. Patient Active Problem List Diagnosis [...] He was admitted to the [facility] in August 2022 due to hyponatremia, hyperkalemia and acute kidney injury, leukocytosis secondary to COVID-19 causing dehydration. I saw him on 05/24/2023 and the office and he had significant evidence of volume overload by exam and echocardiogram. I intensified his diuretic regimen. He ended up getting admitted to the [facility] with acute heart failure exacerbation and [...] On 02/14/2025 he was admitted to the [facility] with altered mental status. brain MRI showed multiple infarcts. He was seen by cardiology consult and Eliquis was changed to Xarelto. He then underwent a transesophageal echocardiogram that showed no evidence of intra cardiac thrombi. The aortic valve stenosis appeared to be severe. He was seen in the emergency room at the [facility] on 03/08/2025 with chest pain episode. He ruled out for myocardial infarction and was discharged. I last saw him on 03/12/2025 and decided to proceed with cardiac catheterization as part of his workup for aortic valve replacement. The procedure is scheduled for May 10, 2025. However in the interim he was admitted on 04/14/[address] [facility] with apparent acute cerebrovascular accident. MRI showed possible small acute/subacute infarct. The clinical presentation was that of inability to speak. Relatively quickly. He was discharged back to rehab at the [facility] (more content not included)...[facility]06-16-2025 Note Discharge Summary Admission and Discharge Information Admit Date/Time:04/14/2025 19:37 Admitting Physician - Layne VERDUGO DO Consulting Physician - [facility] Wound, XXXX Admitting Diagnoses: Anxiety, 04/18/2025 Discharge [...] at discharge. Patient was accepted to the [facility] which patient will transfer there today [...] Discharge Disposition Discharge To, Anticipated II - [facility] Unit Discharged to - Other: [facility] Discharge Diet Discharge Diet(s): Calorie Controlled- 1800 [...] BID Flomax, 0.4 m (more content not included)...[facility]:Result Comment: Electronically Signed By: [...] deep vein thrombosis (DVT) prophylaxis (Z79.899: Other terminal supervisor (current) drug therapy) Resume Xarelto 11. History [...] conjunctiva, sclera clear E (more content not included)...[facility] Hospital[facility] on above: Result Comment: Electronically Signed By: Anai URIARTE\.br\Date and Time Signed: 04/15/25 12:52 EDT\.br\Electronically Co-Signed By: Grey Carl III, DO\.br\Date and Time Co-Signed: 04/23/25 07:20 [id number] Note Microbiology PROCEDURE: Blood Culture Charcoal [R1] SOURCE: Blood BODY SITE: Hand L COLLECTED DATE/TIME: 04/14/2025 18:05 EDT RECEIVED DATE/TIME: 04/14/2025 18:40 EDT START DATE/TIME: 04/14/2025 18:40 EDT FREE TEXT SOURCE: Indu Slaughter, Rivas Griggs M.D., [place] FINAL REPORTS Final Report [] Verified Date/Time: 04/21/2025 21:00 EDT No growth at 7 days. Performing Locations R1: This test was performed at: [facility], [address] [place] [address], [id number] [place] [address], [address] [place], [place] [address]Comment on above:Performed By: #### [id number] #### [facility] [address] [place] [address] [id number] NoteMicrobiology PROCEDURE: Blood Culture Charcoal [R1] SOURCE: Blood BODY SITE: Hand R COLLECTED DATE/TIME: 04/14/2025 18:04 EDT RECEIVED DATE/TIME: 04/14/2025 18:41 EDT START DATE/TIME: 04/14/2025 18:41 EDT FREE TEXT SOURCE: Indu Slaughter, Rivas Griggs M.D., Rivas H FINAL REPORTS Final Report [] Verified Date/Time: 04/21/2025 21:00 EDT No growth at 7 days. Performing Locations R1: This test was performed at: [facility], [address] [place] [address], [id number] [place] [address], [address] [place], [place] [address]Comment on above:Performed By: #### [id number] #### [facility] [address] [place] [address] [id number] NoteMicrobiology PROCEDURE: Blood Culture Charcoal [R1] SOURCE: [...] This test was performed at: [facility], [address] [place] [address], [id number] [place] [address], [address] [place], [place] [address]Comment on above:Performed By: #### [id number] #### [facility] [address] [place] [address] [id number] NoteMicrobiology PROCEDURE: Blood Culture Charcoal [R1] SOURCE: [...] Locations R1: This test was performed at: [facility], [address] [place] [address], [id number]- , , JizhdxAshtabula General HospitalComment on above:Performed By: #### [id number] #### [facility] [address] [place] [address] [id number] NoteGetWell Understands Education Yes GetWell Education Video Statins: Should You Take Them to Lower Your Risk? GetWell Learning Participants [facility]06-04-2025 NoteGetWell Education Video After a Stroke: Your Self-Care Plan GetWell Learning Participants Patient GetWell Understands Education [facility]06-04-2025 NoteGetWell Understands Education Yes GetWell Education Video After a Stroke: Taking an Antiplatelet GetWell Learning Participants [facility]06-04-2025 NoteGetWell Education Video After a Stroke: Taking an Antiplatelet GetWell Learning Participants Patient GetWell Understands Education [facility]06-04-2025 NoteGetWell Understands Education Yes GetWell Education Video Your Hospital Stay: Moving to Another Care Facility GetWell Learning Participants [facility]06-04-2025 NoteGetWell Understands Education GetWell Education Video Stroke: Fast facts GetWell Learning [facility]06-04-2025 NoteGetWell Understands Education GetWell Education Video Stroke: Fast facts GetKeny Learning ParticipantsAshtabula General Hospital06-04-2025 NoteGetWell Understands Education Yes GetWell Education Video After a Hospital Stay: Managing Appointments Rachael Learning Participants [facility]06-04-2025 NoteGetWell Understands Education Yes GetWell Education Video Preventing Falls in the Hospital GetWell Learning Participants [facility]06-04-2025 NoteGetWell Understands Education Yes GetWell Education Video Avoiding Infections in the Hospital GetWell Learning Participants [facility]06-04-2025 NoteGetWell Learning Participants Patient GetWell Understands Education Yes GetWell Education Video What Is a Stroke?[facility]06-03-2025 Evaluation + Plan note Extracted from:Title:APSO NoteAuthor:PEPE [...] today patient is pending cardiac cath at [facility] towards the end of this month [...] deep vein thrombosis (DVT) prophylaxis (Z79.899: Other terminal supervisor (current) drug therapy) Resume Xarelto 11. History [...] deep vein thrombosis (DVT) prophylaxis (Z79.899: Other terminal supervisor (current) drug therapy) 11. History of DVT in adulthood (Z86.718: Personal history of other venous thrombosis and embolism) Chronic constipation with overflow (K59.09: Other constipation) Extracted from:Title:Progress/SOAP NoteAuthor:Hanna GUSTAFSON, [facility] Hospitalte:04/16/25 1. CVA (cerebrovascular acci dent) (I63.9: [...] deep vein thrombosis (DVT) prophylaxis (Z79.899: Other terminal supervisor (current) drug therapy) 11. History of DVT [...] deep vein thrombosis (DVT) prophylaxis (Z79.899: Other group home (current) drug therapy) Resume Xarelto 11. History of DVT in adulthood (Z86.438: Personal history of other venous thrombosis and [...] deep vein thrombosis (DVT) prophylaxis (Z79.899: Other group home (current) drug therapy) 11. History of DVT in adulthood (Z86.718: Personal history of other venous thrombosis and embolism) Chronic constipation with overflow (K59.09: Other constipation) Extracted from:Title:Consult NoteAuthor:Hanna GUSTAFSON, [facility] CenterEmilyte:04/15/25 1. CVA (cerebrovascular acci dent) (I63.9: Cerebral [...] deep vein thrombosis (DVT) prophylaxis (Z79.899: Other terminal supervisor (current) drug therapy) 10. History of DVT [...] deep vein thrombosis (DVT) prophylaxis (Z79.899: Other group home (current) drug therapy) Other obstructive and reflux uropathy (N13.8: Other obstructive and reflux uropathy) Pleural effusion (J90: Pleural effusion, not elsewhere classified) Extracted from:Title:Admission H & PAuthor:Layne VERDUGO DO RDate:04/14/25 1. CVA (cerebrovascular acci dent) (I63.9: Cerebral infarction, unspecified) Interventional neurology was consulted from the emergency department at [facility]. They recommendedpatient started on a low [...] deep vein thrombosis (DVT) prophylaxis (Z79.899: Other terminal supervisor (current) drug therapy) SCD, heparin Orders: albuterol, [...] erythema or exudate. - POA. will consult [facility]. bacitracinbid. Extracted from:Title:ED NoteAuthor:Rivas Griggs M.D. HDate:04/14/25 [...] Date:06/11/2025 11:40:00 AM Scheduled Provider:LU OLMEDO PA-C Location:[facility] Appointment Type:URO Office Visit [facility] 06-03-2025 NoteProgress Note-Physician Assessment/Plan PLAN: 1. [...] today patient is pending cardiac cath at [facility] towards the end of this month [...] deep vein thrombosis (DVT) prophylaxis (Z79.899: Other group home (current) drug therapy) Resume Xarelto 11. History [...] Lymph Auto: 7.1 % Low (04/17/25 06:01:00) [place] Auto: 13.7 % (04/17/25 06:01:00) Eos Auto: 0.6 % (04/17/25 06:01:00) Basophil Auto: 0.6 % (04/17/25 06:01:00) Neutro Absolute: 7.7 E9/L High (04/17/25 06:01:00) Lymph Absolute: 0.7 E9/L Low (04/17/25 06:01:00) [place] Absolute: 1.4 E9/L High (06 (more content not included)...[facility] HospitalComment on above:Result Comment: Electronically Signed By: Anai URIARTE\.br\Date and Time Signed: 04/17/25 08:59 EDT\.br\Electronically Co-Signed By: Marc Fajardo DO\.br\Date and Time Co- Signed: 04/17/25 13:29 [id number] NoteProgress Note-Physician Assessment/Plan ASSESSMENT: Acute to subacute [...] deep vein thrombosis (DVT) prophylaxis (Z79.899: Other terminal supervisor (current) drug therapy) 11. History of DVT [...] both correctly = 0 Open and close eyes/petroleum products district supervisor release hand: Obeys both correctly = 0 [...] MPV: 9.1 fL (04/17/ (more content not included)...[facility] Comment on above:Result Comment: Electronically Signed By: Pati Quinones RN\.br\Date and Time Signed: 04/17/25 09:21 EDT\.br\Electronically Co- Signed By: Ruy Molina DO\.br\Date and Time Co-Signed: 04/17/25 10:46 EDT 04-16-2025 NoteProgress Note-Physician Subjective Patient off floor for MRI. I did discuss the echo findings with the patient family. Patient family was advised to follow-up with his outpatient treating satellite communications engineer. Patient satellite communications engineer showed be able to get access to [...] Lymph Auto: 4.6 % Low (04/16/25 06:05:00) [place] Auto: 10.8 % (04/16/25 06:05:00) Eos Auto: 0.2 % (04/16/25 06:05:00) Basophil Auto: 0.1 % (04/16/25 06:05:00) Neutro Absolute: 12.3 E9/L High (04/16/25 06:05:00) Lymph Absolute: 0.7 E9/L Low (04/16/25 06:05:00) [place] Absolute: 1.6 E9/L High (04/16/25 06:05:00) Eos [...] mg/dL High (04/16/25 11:23:00) POC Device SN: [id number] (04/16/25 11:23:00) POC User ID: [id number] (04/16/25 11:23:00) POC Username: WICHO NORRIS (04/16/25 [...] deep vein thrombosis (DVT) prophylaxis (Z79.899: Other terminal supervisor (current) drug therapy) 11. History of DVT [...] loratadine 10 mg Tab, (more content not included)...[facility] Comment on above:Result Comment: Electronically Signed By: Hanna GUSTAFSON, Rebeca\.br\Date and Time Signed: 04/16/25 12:15 [id number] NoteProgress Note-Physician Assessment/Plan PLAN: 1. CVA (cerebrovascular [...] deep vein thrombosis (DVT) prophylaxis (Z79.899: Other terminal supervisor (current) drug therapy) Resume Xarelto 11. History [...] Lymph Auto: 4.6 % Low (04/16/25 06:05:00) [place] Auto: 10.8 % (04/16/25 06:05:00) Eos Auto: 0.2 % (04/16/25 06:05:00) Basophil Auto: 0.1 % (04/16/25 06:05:00) Neutro Absolute: 12.3 E9/L High (04/16/25 06:05:00) Lymph Absolute: 0.7 E9/L Low (04/16/25 06:05:00) [place] Absolute: 1.6 E9/L High (04/16/25 06:05:00) Eos Absolute: 0 E9/L (04/16/25 06:05:00) Basophil Absolute: 0 E9/L (04/16/25 06:05:00) Glucose Lvl: 212 mg/dL High (04/16/25 06:05:00) BUN: 33 mg/dL High (04/16/25 06:05:00) Creatinine: 1.7 mg/dL High (04/16/25 06:05:00) eGFR: 39 mL/min/1.73 (more content not included)...[facility] Comment on above:Result Comment: Electronically Signed [...] be managed by a specialist called an pipefitter welder. Type 2 diabetes may be treated by [...] meet with a certified diabetes care and educational resource center teacher? What diabetes medicines do I need, and when should I take them? What equipment will I need to manage my diabetes at home? How often do I need to check my blood glucose? Where can I find a support group for people with diabetes? What number can I call if I have questions? When is my next appointment? General instructions Take dvfo-[id number]-[id number] and prescription medicines only as told by your health care provider. Keep all follow-up visits. This is important. Where to find more information For help and guidance and for more information about diabetes, please visit: [place] [employer] (ADA): www.diabetes.org [place] [employer] Diabetes Care and Education Specialists [...] provider. Document Revised: 01/26/2022 Document Reviewed: 01/26/2022 [employer] Patient Education 2023 [employer]. 04/16/2025 09:29:43 Atrial Fibrillation Atrial Fibrillation Atrial [...] electrical signals of the heart. An ambulatory surveillance system monitor to record your heart's activity for [...] provider. Document Revised: 07/21/2023 Document Reviewed: 07/21/2023 [employer] Patient Education 2023 [employer] 04/16/2025 09:29:43 Core Measures: Stroke (Cerebrovascular Accident) [facility], (Custom) Stroke (Cerebrovascular Accident) A stroke is [...] factors for stroke, work with your health personal care aide to control them. High Blood Pressure: High [...] Please call [facility]oking Cessation Program at [phone] ([facility]), or [phone], ext. [phone] Diabetes: Work with your healthcare professional to [...] cholesterol diet, you can call our [employer] ring rolling machine operator at [phone] Ext. [phone]. The goal for total cholesterol is less [...] your risk of stroke with your health personal care aide. TREATMENT TIME IS OF THE ESSENCE! Medications [...] Measures will be takento prevent short and group home complications, including aspiration pneumonia, blood clots in [...] for more information on strokes, log onto [email or web address] or www.strokeassociation.org or call the [place] at . Revised 11/2018 Follow Up Care 04/14/2025 16:54:01 With:Neurology Address: [phone] When:2 to 4 weeks Comments:Call for followup appointment [facility] 06-02-2025 NoteEchocardiology Procedure Exam Date/Time Accession # Ordering Dr. Byrd Transthoracic 04/16/2025 10:06 EDT [id number] Felton URIARTE CPT code 42303 [id number] Reason for Exam (Echo Transthoracic Complete) CVA Report [facility] [address] [place] [address] Adult Echocardiogram Report Name: NADIR BETH Study Date: 04/16/2025 09:15 AM BP: 172/80 mmHg Patient Location: [facility]02 01 [facility] Bed(s) [facility] HR: 94 : 1940 Gender: Male Height: 71.5 in Age: 85 yrs Ethnicity: [facility] Weight: 168 lb Reason For Study: CVA BSA: 2.0 m2 History: AFIB, HTN, CKD, DM, CHF Ordering Physician: Anai CANTU Performed By: Rabia Heredia, [facility] Interpretation Summary The left ventricle is normal [...] Rebeca Ferreira MD Transcribed by: ROBER Technologist: [facility]06-02-2025 Note Progress Note-Physician Assessment/Plan ASSESSMENT: His [...] deep vein thrombosis (DVT) prophylaxis (Z79.899: Other terminal supervisor (current) drug therapy) 11. History of DVT [...] Both incorrect = 1 Open and close eyes/petroleum products district supervisor release hand: Obeys both correctly = 0 [...] Lymph Auto: 4.6 % Low (04/16/25 06:05:00) [place] Auto: 10.8 % (04/16/25 06:05:00) Eos Auto: 0.2 % (04/16/25 06:05:00) Basophil Auto: 0.1 % (04/16/25 06:05:00) Neutro Absolute: 12.3 E9/L High (04/16/25 06:05:00) Lymph Absolut (more content not included)...[facility]:Result Comment: Electronically Signed By: Tonny OTERO, Preethi Marroquin\.br\Date and Time Signed: 04/16/25 07:32 EDT\.br\Electronically Co-Signed By: Ruy Molina DO\.br\Date and Time Co-Signed: 04/16/25 09:47 [id number] Note Interdisciplinary Note - PT PT Evaluation done this date. Pt. with on AM-PAC this date. Min Ax1 and FWW with all activityfor safety. Recommend SNF at this time, will continue to follow.[facility]06-01-20[facility] NoteInterdisciplinary Note - PT PT evaluation order received. Pt has an MRI still pending and as per nursing should be on hold for today. Will attempt tomorrow.[facility] 04-15-2025 NoteConsultation Note Chief Complaint AMS [...] Patient's daughter Valerie is healthcare power of workers compensation defense attorney. She was on the phone. She states that for the time being she would like patient to be a full code. She will discuss this with her family and notify us if she makes any changes. Family does note that patient was admitted for a stroke at [facility] about 6 weeks ago. They state [...] is obtained. He does follow-up with outpatient satellite communications engineer. Review of Systems As per HPI Physical [...] deep vein thrombosis (DVT) prophylaxis (Z79.899: Other terminal supervisor (current) drug therapy) 10. History of DVT [...] hernia repair, Tonsillectomy. Medications (more content not included)...[facility] HospitalComment on above:Result Comment: Electronically Signed By: Hanna GUSTAFSON, Rebeca\.mary\Date and Time Signed: 04/15/25 09:39 [id number] NoteConsultation Note Chief Complaint AMS Reason for [...] was admitted for stroke workup at the [facility] about a month and a half [...] Both incorrect = 2 Open and close eyes/petroleum products district supervisor release hand: Obeys both correctly = 0 [...] 9. DM2 (diabetes elio (more content not included)...[facility] Comment on above:Result Comment: Electronically Signed By: Stephanie Mello RN\.br\Date and Time Signed: 04/15/25 06:55EDT\.br\Electronically Co-Signed By: Ruy Molina DO\.br\Date and Time Co-Signed: 04/15/25 09:37 [id number] Note History and Physical Basic Information Admit [...] Patient's daughter Valerie is healthcare power of workers compensation defense attorney. She was on the phone. She states that for the time being she would like patient to be a full code. She will discuss this with her family and notify us if she makes any changes. Family does note that patient was admitted for a stroke at [facility] about 6 weeks ago. They state [...] other details. NIH Stroke Scale/Score (NIHSS) from [employer] on 04/14/2025 All calculations should be rechecked [...] Lymph Auto: 7.8 % Low (04/14/25 17:08:00) [place] Auto: 9.9 % (04/14/25 17:08:00) Eos Auto: 1.5 % (04/14/25 17:08:00) Basophil Auto: 0.8 % (04/14/25 17:08:00) Neutro Absolute: 6.5 E9/L (04/14/25 17:08:00) Lymph Absolute: 0.6 E9/L Low (04/14/25 17:08:00) [place] Absolute: 0.8 E9/L (04/14/25 17:08:00) Eos Absolute: 0.1 E9/L (04/14/25 17:08:00) Basophil Absolute: 0.1 E9/L (04/14/25 17:08:00) PT: 11 second(s) (04/14/25 17:08:00) INR: 0.98 (04/14/25 17:08:00) PTT: 33.3 second(s) (04/14/25 17:08:00) Glucose Lvl: 245 mg/dL High (04/14/25 17:08:00) BUN: 28 mg/dL High (04/14/25 17:08:00) Creatinine: 1.8 mg/dL High (04/14/25 17:08:00) eGFR: 36 mL (more content not included)...[facility] HospitalComment on above:Result Comment: Electronically Signed By: Layne VERDUGO DO\Date and Time Signed: 04/15/25 02:30 [id number] NoteHistory and Physical Basic Information Admit Date/Time:04/14/2025 [...] Patient's daughter Valerie is healthcare power of workers compensation defense attorney. She was on the phone. She states that for the time being she would like patient to be a full code. She will discuss this with her family and notify us if she makes any changes. Family does note that patient was admitted for a stroke at [facility] about 6 weeks ago. They state [...] other details. NIH Stroke Scale/Score (NIHSS) from [employer] on 04/14/2025 All calculations should be rechecked [...] Lymph Auto: 7.8 % Low (04/14/25 17:08:00) [place] Auto: 9.9 % (04/14/25 17:08:00) Eos Auto: 1.5 % (04/14/25 17:08:00) Basophil Auto: 0.8 % (04/14/25 17:08:00) Neutro Absolute: 6.5 E9/L (04/14/25 17:08:00) Lymph Absolute: 0.6 E9/L Low (04/14/25 17:08:00) [place] Absolute: 0.8 E9/L (04/14/25 17:08:00) Eos Absolute: 0.1 E9/L (04/14/25 17:08:00) Basophil Absolute: 0.1 E9/L (04/14/25 17:08:00) PT: 11 second(s) (04/14/25 17:08:00) INR: 0.98 (04/14/25 17:08:00) PTT: 33.3 second(s) (04/14/25 17:08:00) Glucose Lvl: 245 mg/dL High (04/14/25 17:08:00) BUN: 28 mg/dL High (04/14/25 17:08:00) Creatinine: 1.8 mg/dL High (04/14/25 17:08:00) eGFR: 36 mL (more content not included)...[facility] HospitalComment on above:Result Comment: Electronically Signed By: Layne VERDUGO DO\Date and Time Signed: 04/14/25 22:32 [id number] History of Present illness Narrative* Blaise Cara [...] Partner Violence: Unknown (01/06/2024) Received from [facility] Safety & Environment Fear of Current [...] and negative PT pedal pulses NEURO: 5.07 [place] monofilament test diminished to digits and forefoot bilaterally 125Hz tuning fork diminished to 1st MPJ bilaterally ORTHO: Positive pain on palpation to nails 1 through 10 Minimal pain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 10/01/23 * Thyroid Stimulating Hormone 10/01/23 [facility] evaluation + Plan note Future Appointments Appointment Date:12/04/2024 08:40:00 AM Scheduled Provider:MARQUIS LOUISE MD Location:[facility] Appointment Type:URO Office Visit Future Scheduled Tests Laboratory* CBC w/ Auto Diff 10/01/23 * Comprehensive Metabolic Panel 10/01/23 * Thyroid Stimulating Hormone 10/01/23 [facility] evaluation + Plan note Future Appointments Appointment Date:06/11/2025 11:40:00 AM Scheduled Provider:LU OLMEDO PA-C Location:[facility] Appointment Type:URO Office Visit Future Scheduled Tests Laboratory* CBC w/ Auto Diff 10/01/23 * Comprehensive Metabolic Panel 10/01/23 * Thyroid Stimulating Hormone 10/01/23 [facility] Evaluation + Plan note Future Appointments Appointment Date:03/04/2026 09:00:00 AM Scheduled Provider:MARQUIS LOUISE MD Location:[facility] Appointment Type:URO Office Visit [facility] evaluation note* Diagnosis Melanocytic nevus of trunk- [...] polyneuropathy, unspecified whether group home insulin use ([facility]) Pain due to onychomycosis of toenails of [...] condition with diabetic polyneuropathy, unspecified whether terminal supervisor insulin use (CMS/HCC) Pain due to onychomycosis [...] condition with diabetic polyneuropathy, unspecified whether terminal supervisor insulin use (HCC) Pain due to onychomycosis [...] data available for this section [facility] Hospital Discharge instructions No data available for this section [facility] No data available for this section [facility] Summary Purpose Family History No Family [...] DATE CREATED AUTHOR AUTHOR'S ORGANIZ ATION 03/28/2023 [facility] DATE CREATED AUTHOR AUTHOR'S ORGANIZ ATION 04/15/2025 [facility] DATE CREATED AUTHOR AUTHOR'S ORGANIZ ATION 04/16/2025 [facility] DATE CREATED AUTHOR AUTHOR'S ORGANIZ ATION 04/17/2025 [facility] DATE CREATED AUTHOR AUTHOR'S ORGANIZ ATION 04/18/2025 [facility] DATE CREATED AUTHOR AUTHOR'S ORGANIZ ATION 04/19/2025 [facility] DATE CREATED AUTHOR AUTHOR'S ORGANIZ ATION 04/21/2025 [facility] DATE CREATED AUTHOR AUTHOR'S ORGANIZ ATION 04/22/2025 [facility] DATE CREATED AUTHOR AUTHOR'S ORGANIZ ATION 05/23/[address] [facility] DATE CREATED AUTHOR AUTHOR'S ORGANIZ ATION 06/12/2025 [facility] DATE CREATED AUTHOR AUTHOR'S ORGANIZ ATION 06/14/2025 [facility] DATE CREATED AUTHOR AUTHOR'S ORGANIZ ATION 07/29/2025 [facility] DATE CREATED AUTHOR AUTHOR'S ORGANIZ ATION 08/17/[address] [facility] Care Team (unrecognized sect ion and content) Team MemberRelationshipSpecialtyStart DateEnd Date Van Youssef MD [address] [place] [address] PCP - GeneralFamily Medicine12/02/23Team MemberRelationshipSpecialtyStart DateEnd Date Van Youssef MD [address] [place] [address] PCP - GeneralFamily Medicine12/02/23Team MemberRelationshipSpecialtyStart DateEnd Date Van Youssef MD [address] [place] [address] PCP - GeneralFamily Medicine12/02/23Team MemberRelationshipSpecialtyStart DateEnd Date Van Youssef MD [address] [place] [facility] [address] PCP - GeneralFamily Medicine12/02/23Team MemberRelationshipSpecialtyStart DateEnd Date Van Youssef MD [address] [place] [facility] [place] [address] PCP - GeneralFamily Medicine12/02/23Team MemberRelationshipSpecialtyStart DateEnd Date Van Youssef MD [address] [place] [facility] [place] [address] PCP - GeneralFamily Medicine12/02/23Team MemberRelationshipSpecialtyStart DateEnd Date Van Youssef MD [address] [place] [facility] [place] [address] PCP - GeneralFamily Medicine12/02/23Team MemberRelationshipSpecialtyStart DateEnd Date Van Youssef MD [address] [place] [facility] [place] [address] PCP - GeneralFamily Medicine12/02/23Team MemberRelationshipSpecialtyStart DateEnd Date Van Youssef MD [address] [place] [facility] [place] [address] PCP - GeneralFamily Medicine12/02/23Team MemberRelationshipSpecialtyStart DateEnd Date Van Youssef MD [address] [place] [facility] [place] [address] PCP - GeneralFamily Medicine12/02/23Team MemberRelationshipSpecialtyStart DateEnd Date Van Youssef MD [address] [place] [facility] [place] [address] PCP - GeneralFamily Medicine12/02/23Team MemberRelationshipSpecialtyStart DateEnd Date Van Youssef MD PCP - GeneralFamily Medicine12/02/23Team MemberRelationshipSpecialtyStart DateEnd Date Van Youssef MD [address] [place] [facility] [place] [address] PCP - GeneralFamily Medicine12/02/23Team MemberRelationshipSpecialtyStart DateEnd Date Van Youssef MD [address] [place] [facility] [place] [address] PCP - GeneralFamily Medicine12/02/23Team MemberRelationshipSpecialtyStart DateEnd Date Van Youssef MD [address] [place] [facility] [place] [address] PCP - GeneralFamily Medicine12/02/23Team MemberRelationshipSpecialtyStart DateEnd Date Van Youssef MD [address] [place] [facility] [place] [address] PCP - GeneralFamily Medicine12/02/23Team MemberRelationshipSpecialtyStart DateEnd Date Van Youssef MD [address] [place] [facility] [place] [address] PCP - GeneralFamily Medicine1/18/24Team MemberRelationshipSpecialtyStart DateEnd Date Van Youssef MD [address] [place] [facility] [place] [address] PCP - GeneralFamily Medicine12/02/23Team MemberRelationshipSpecialtyStart DateEnd Date Van Youssef MD [address] [place] [facility] [place] [address] PCP - GeneralFamily Medicine12/02/23Team MemberRelationshipSpecialtyStart DateEnd Date Van Youssef MD [address] [place] [facility] [place] [address] PCP - GeneralFami Medicine12/02/23Team MemberRelationshipSpecialtyStart DateEnd Date Van Youssef MD [address] [place] [facility] [place] [address] PCP - Generalmily Medicine12/02/23Team MemberRelationshipSpecialtyStart DateEnd Date Van Youssef MD [address] [place] [facility] [place] [address] PCP - GeneralFamily Medicine12/02/23Team MemberRelationshipSpecialtyStart DateEnd Date Van Youssef MD [address] [place] [facility] [place] [address] PCP - GeneralFamily Medicine12/02/23 Reason for Visit [...] BE BASED ON THE PRIMARY CLINICAL RECORDS. [facility] [employer] [facility]. provides no warranty or guarantee of the accuracy or completeness of information in this document.
[2025-09-04 16:09] LABS: Glucose Urine UA >=1000 mg/dL (NEGATIVE)
[2025-09-04 16:18] LABS: Cast Seen? SEEN #/LPF (NONE SEEN); Crystals Seen? None Seen #/HPF (None Seen)
[2025-09-04 16:19] LABS: Urine Culture Indicated ALREADY ORDERED
== END 2025-09-04 15:41 | disposition home or self-care (01) ==
LOC: LAB 15:40
PROVIDERS: PCP Family Medicine; Visit Provider Family Medicine
DX: R41.0 Disorientation, unspecified (principal)
CPT/HCPCS: 81001; 87086

== ENCOUNTER 2025-09-14 07:40 | Outpatient (RCR) | payer MEDICARE, SELFPAY ==
[2025-09-14 11:00] VITALS: BP 143/87; PULSE 62; TEMP 36.5; O2SAT 95
[2025-09-14] MEDS: INCLISIRAN SODIUM 284 MG/1.5 ML SYRINGE SQ (11:03)
== END 2025-09-14 23:59 | disposition home or self-care (01) ==
LOC: INF 07:40
PROVIDERS: PCP Family Medicine
DX: E78.5 Hyperlipidemia, unspecified (principal); I25.10 Atherosclerotic heart disease of native coronary artery without angina pectoris
CPT/HCPCS: 96372; J1306

== ENCOUNTER 2025-09-14 10:47 | Outpatient (OUT) | payer MEDICARE, SELFPAY ==
--- OUTSIDE RECORDS SUMMARY | 2025-04-26 05:30 | XMS_ITS ---
Author Organization [facility] [place] Address [address] [place] [address] Care Team Providers Care Math Coach Name Role Phone Pineda Erik Primary Care Provider REASON FOR VISIT injection Encounters Encounter Location Date Provider Diagnosis [facility] [address] [place] [address] 04/26/2025 Erik Sung Plan Of Treatment Next Appt Details Provider Name:Erik Sung, 10:00:00 AM, [address] [place], [address], Progress Notes * ZOEYMiroslavaCAILINAnson ARMSTRONG LDOB:[birth year] (85 yo M)Acc No.[id number]:04/26/2025 UNLOCKED PROGRESS NOTE Progress Note Patient: Anson SANTILLAN :?Pj Sung ([facility]), MDDOB:1940???Age: 85 Y???Sex:MaleDate:04/26/2025Phone:[phone]:[address] [place] [address] Subjective: * Chief Complaints: * 1 . Injection. * Medical History: Objective: * Vitals: Assessment: Plan: * Treatment: * * Electronic signature of Erik Sung MD, [id number] on 09/14/2025 at 10:50 AM EDT Sign off status: PendingVisit Status:?CANC (Cancelled) * Provider: Louise Sung ([facility])MD Date: 0 04/26/2025 Generated for Printing/Faxing/eTransmitting on:?09/14/2025 10:50 AM EDT
--- OUTSIDE RECORDS SUMMARY | 2025-09-04 06:13 | XMS_ITS ---
Author Organization [facility] in [place] Address [address] [place] [address] Care Team Providers Care Electronics Repair Technician Name Role Phone Erik Sung Primary Care Provider REASON FOR VISIT Confusion Medications Medication SIG (Take, Route, Frequency, Duration) Notes Start Date End Date Status levoFLOXacin 750 MG 1 tablet Orally Once a day; Duration: 10 days 5Active Encounters Encounter Location Date Provider Diagnosis [facility] [address] [place] [address] 09/04/2025 Erik Sung Confusion R41.0 Assessments Encounter [...] Culture 09/04/2025 Next Appt Details Provider Name:Erik Fernandez Cirilomohan, 10:00:00 AM, [address] [place], [address], Progress Notes * Anson HEREDIA LDOB:[birth year] (85 yo M)Acc No.[id number]:09/04/2025 Patient:?Anson HEREDIA :1940???Age:85 Y???Sex:MalePhone:[phone] Address:[address] [place] [address], [address] * Refills Start levoFLOXacin Tablet, 750 MG, [...] Codes: * true * Date:?Generated for Printing/Faxing/eTransmitting on:?09/14/2025 10:49 AM EDT
--- OUTSIDE RECORDS SUMMARY | 2025-09-04 20:42 | XMS_ITS | Continuity of Care Document ---
Author Organization [facility] Address [address] [place] [address] Phone Care Team Providers Care Corn Lab Technician Name Role Phone Pj Sung MD Attending Provider Care Teams Patient Care Team Team Status: Inactive Member Role/Relationship Status Dates Pj Sung MD Attending Provider Active Sta rt: September 04, 2025 End: September 04, 2025 Chief Complaint and Reason for Visit Chief Complaint Admit Date Unknown September 04, 2025 3 :41pm Social History Smoking Status Unknown if ever smoked Observation Status Observation Response Date of Response Legal Sex Male (finding) Sex [facility]igned [facility] 1939 Procedures Procedure Date Performed Status Urine Culture September 04, 2025 active Advance Directives Advance Directive Response Recorded Date/ Time Advance Directives No September 22, 2024 5:39pm Insurance Providers Guarantor Anson Beth Address [address] [facility] [address] Info.Home Phone: H Coverage Status Update:2024 Payer Group Member ID Coverage Type Subscriber Relationship to Subscriber Effective Date Expiration Date Medicare [id number] Raifsnider Id: [id number] [address] [address] Home Phone: HSelfMedicare Nonpatient [id number] Raifsnider Id: [id number] [address] [address] Home Phone: [facility] Health Claims [id number] Raifsnider Id: [id number] [address] [facility] [address] Home Phone: HSelf Encounters Encounter Location(s) Arrival/Admit Date Discharge/Departure Date Discharge/Departure Disposition Provider(s) Departed Referred -[facility] September 04, 2025 3:41pm September 04, 2025 3:42pm Discharged to home care or self care (routine discharge) Jim Gallardo MD Plan of Treatment Future Tests Future scheduled test information is unavailable Pending Tests Test Name Ordered Date Scheduled Date Urine Culture September 04, 2025 3:41pm Future Visits Future appointment information is unavailable Future Procedures Procedure Name Ordered Date Scheduled Date Urine Culture September 04, 2025 9:09pm Octobe r 2024 3:41pm Future Medications Future medication information is unavailable Patient Instructions Patient instructions are unavailable
--- OUTSIDE RECORDS SUMMARY | 2025-09-11 13:15 | XMS_ITS | Encounter Summary ---
Author Organization [facility] Address [address] [place] [address] Care Team Providers Care Third Steel Pourer Name Role Phone Pj Sung MD Primary Care Provider [phone] Reason for Visit * ReasonCommentsSkin Check Encounter Details DateTypeDepartmentCare Team (Latest Contact Info)Canqmcxvqji80/28/2025 1:15 PM EDTOffice Visit [facility] [address] [facility] [address] [place] [address] Mercedes Joy MD [address] [facility] [address] [place] [address] Seborrheic keratosis (Primary Dx); Actinic keratosis; Lentigines; [...] limited to risks of scarring, darker or vacuum metalizer operator pigmentary changes, recurrence, incomplete removal and [...] TISSUE, AND SKIN Left Knee - Anterior [place] papule - Lesion biopsy Type of biopsy: [...] Plan of Treatment DateTypeDepartmentCare Team (Latest Contact Info)Usihryoxkfn31/06/2025 11:40 AM ESTOffice Visit [facility] [address] [facility] [address] [place] [address] Blaise Dc, DPJim [address] [facility] 5 [place] [address] 10/09/2025 1:45 PM ESTOffice Visit [facility] Neu[facility] [address] [facility] [address] [place] [address] Lenin Montoya MD [address] [facility] [address] [place] [address] 09/10/2026 1:15 PM EDTOffice Visit [facility] [address] [place] [address] Mercedes Joy MD [address] [place] [address] NameTypePriorityAssociated DiagnosesOrder ScheduleDermatopathology examPathology and CytologyTimed Neoplasm of unspecified behavior of bone, soft tissue, and skin Release Upon Ordering for 1 Occurrences starting 09/11/2025documented as of this encounter Procedures Procedure NamePriorityDate/TimeAssociated DiagnosisCommentsSKIN / NAIL BIOPSY Wukicbn7609/11/2025 1:13 PM EDT Neoplasm of unspecified behavior of bone, soft tissue, and skin CRYOTHERAPY SKIN QEJUJHUqptaes30/28/2025 1:10 PM EDT Actinic keratosis documented in this encounter Results * Lesion [...] StatusEmily A Petitti MDDERM PROCEDURE ORDERABLESFinal Result documented in this encounter Visit Diagnoses Diagnosis Seborrheic keratosis- Primary Actinic keratosis Lentigines Neoplasm of unspecified behavior of bone, soft tissue, and skin Verruca plantaris- Primary Plantar wart Foot pain, right Pain in soft tissues of limb Diabetes mellitus due to underlying condition with diabetic polyneuropathy, unspecified whether alf insulin use (HCC) Pain due to onychomycosis of toenails of both feet documented in this encounter Care Teams Team MemberRelationshipSpecialtyStart DateEnd Pj Sung MD [address] [place] [address] PCP - GeneralFamily Medicine12/02/23documented as of this encounter
--- OUTSIDE RECORDS SUMMARY | 2025-09-14 10:49 | XMS_ITS | Encounter Summary ---
Author Organization [facility] Address [address] [place] [address] Care Team Providers Care Spa Attendant Name Role Phone Pj Sung MD Primary Care Provider [phone] Pj Sung MD Unavailable Encounter Details DateTypeDepartmentCare Team (Latest Contact Info)Vrahwftdchg71/21/2025Telephone [facility] [address] [place] [address] Stephanie Carl MA Social History Tobacco UseTypesPacks/DayYears UsedDateSmoking Tobacco: FormerCigarettes Smokeless Tobacco: NeverAlcohol UseStandard Drinks/WeekCommentsNot Currently0 (1 standard drink = 0.6 oz pure alcohol)[facility] UtilitiesAnswerDate RecordedIn the past 12 [...] heating?Not hard at all05/10/2025PHQ-2AnswerDate RecordedPatient Health Questionnaire-2 Batxd828TransportationAnswerDate RecordedIn the past 12 months, has lack [...] were you homeless or living in a mcc (including now)? No05/10/2025Hunger Vital SignAnswerDate RecordedWithin the past 12 months, you worried that your food would run out before you got the money to buymore.Never true05/10/2025Ran Out of Food in the Last YearNot on file05/10/2025Sex and Gender InformationValueDate RecordedSex Assigned at JyestBnfb70/27/2023 8:02 PM EDTLegal GaoWdvj5805/13/2022 10:17 PM EDTGender JaoypkcrLfia53/27/2023 8:02 PM EDT Sexual OrientationHeterosexual or Pmxkddbf94/27/2023 8:02 PM EDTdocumented as of this encounter Miscellaneous Notes * Telephone Encounter - Stephanie Carl MA - 09/04/2025 10:10 AM EDT Patient's called to make you aware that during PT/OT, they have noted him being more SOB than usual. The nurse at the [facility] told me he has no edema. She [...] Plan of Treatment DateTypeDepartmentCare Team (Latest Contact Info)Azhngpjgdrm40/19/2025 10:00 AM ESTOffice Visit [facility] [address] [place] [address] Mike Cisneros MD [address] [facility] [place] [address] 01/30/2026 3:00 PM [facility]TFoll[facility] [address] [place] [address] Ruthie Linda MD [address] [facility] [place] [address] documented as of this encounter Visit Diagnoses Not on filedocumented in this encounter Care Teams Team MemberRelationshipSpecialtyStart DateEnd Date Pj Sung MD [address] [place] [address] PCP - GeneralFamily Medicine05/10/25 Pj Sung MD [address] [place] [address] 05/10/25documented as of this encounter
--- OUTSIDE RECORDS SUMMARY | 2025-09-14 10:49 | XMS_ITS | Encounter Summary ---
Author Organization [facility] Address [address] [place] [address] Care Team Providers Care Tying In Machine Operator Name Role Phone Pj Sung MD Primary Care Provider [phone] Encounter Details DateTypeDepartmentCare Team (Latest Contact Info)Wrhlmofghkt60/28/2025amboo flowsheet [facility] [address] [facility] [address] [place] [address] Mercedes Joy MD [address] [facility] [address] [place] [address] Social History Tobacco UseTypesPacks/DayYears UsedDateSmoking Tobacco: FormerCigarettes Smokeless Tobacco: NeverAlcohol UseStandard Drinks/WeekCommentsNever0 (1 standard drink = 0.6 oz pure alcohol)caffeine 1-2 cups/daySex and Gender InformationValueDate RecordedSex Assigned at BirthNot on fileLegal SexMale 01/27/2023 6:35 PM EDTGender IdentityNot on fileSexual OrientationNot on file documented as of this encounter Plan of Treatment DateTypeDepartmentCare Team (Latest Contact Info)Nyhwnwwmjal27/06/2025 11:40 AM ESTOffice Visit [facility] [address] [place] [address] Blaise Dc DPM 3[address] [facility] 5 [place] [address] 10/09/2025 1:45 PM ESTOffice Visit [facility] [address] [place] [address] Lenin Montoya MD [address] [facility] [address] [place], [place] [address] 09/10/2026 1:15 PM EDTOffice Visit [facility] [address] [facility] [address] [place] [address] Mercedes Joy MD [address] [facility] [address] [place] [address] documented as of this encounter Visit Diagnoses Not on filedocumented in this encounter Care Teams Team MemberRelationshipSpecialtyStart DateEnd Pj Sung MD [address] [place] [phone] PCP - GeneralFamily Medicine12/02/23documented as of this encounter
--- OUTSIDE RECORDS SUMMARY | 2025-09-14 10:49 | XMS_ITS | Encounter Summary ---
Author Organization [facility] Address [address] [place] [address] Care Team Providers Care Steam Engineer Name Role Phone Pj Sung MD Primary Care Provider [phone] Encounter Details DateTypeDepartmentCare Team (Latest Contact Info)Lfofcdpfvuy59/28/2025Travel Social History Tobacco UseTypesPacks/DayYears UsedDateSmoking Tobacco: FormerCigarettes Smokeless Tobacco: NeverAlcohol UseStandard Drinks/WeekCommentsNever0 (1 standard drink = 0.6 oz pure alcohol)caffeine 1-2 cups/daySex and Gender InformationValueDate RecordedSex Assigned at BirthNot on fileLegal SexMale 01/27/2023 6:35 PM EDTGender IdentityNot on fileSexual OrientationNot on file documented as of this encounter Plan of Treatment DateTypeDepartmentCare Team (Latest Contact Info)Sgcrspnhlfb99/06/2025 11:40 AM ESTOffice Visit [facility] [address] [facility] [address] [place] [address] Blaise Dc, DPM 3[address] [facility] 5 [place] [address] 10/09/2025 1:45 PM ESTOffice Visit [facility] Neurology [address] [facility] [address] [place] [address] Lenin Montoya MD 2[address] [facility] [address] [place] [address] 09/10/2026 1:15 PM EDTOffice Visit [facility] [address] [place] [address] Mercedes Joy MD [address] [place] [address] documented as of this encounter Visit Diagnoses Not on filedocumented in this encounter Care Teams Team MemberRelationshipSpecialtyStart DateEnd Date Pj Sung MD [address] [facility] [place] [address] PCP - GeneralFamily Medicine12/02/23documented as of this encounter
--- OUTSIDE RECORDS SUMMARY | 2025-09-14 10:50 | XMS_ITS | Clinical Summary ---
Author Organization [facility] Address [address] [place] [address] Care Team Providers Care Machine Tracer Name Role Phone Pj Sung MD Primary Care Provider [phone] Allergies Active AllergyReactionsCriticalityNoted DateCommentsIodinated Contrast Media 08/24/2023 Other Reaction(s): Unknown Ftpslflderubt59/10/2022 Other Reaction(s): Not available, Unknown Kclfote9308/24/2023 Other Reaction(s): elevated liver enzymes, Unknown Medications [...] mg DailyActive Active Problems ProblemNoted DateDiagnosed DateB12 /26/2025 Overview (07/10/2025): --- partially or fully due to PPI. Assessment & Plan (07/27/2025 1:18 PM EDT): --- partially or fully due to PPI. (Continue B12 injections.) Assessment & Plan (07/10/2025 11:24 AM EDT): --- partially or fully due to PPI. (Continue B12 injections.) Sequelae of cerebral vpgvsjpayy51/27/2025 Assessment & Plan (07/27/2025 1:18 PM EDT): (Anticoag managed by cardiology.) Assessment & Plan (07/10/2025 11:24 AM EDT): (Anticoag managed by cardiology.) Assessment & Plan (05/08/2025 4:35 PM EDT): (Continue ASA, Xeralto - was on eliquis, statin.) Assessment & Plan (04/10/2025 1:49 PM EDT): (Continue ASA.) Get MR brain report -- not received. (We have only MRA) Carotid stenosis, jewuguwga13/27/2025 Assessment & Plan (07/27/2025 1:18 PM EDT): [...] this office take over JOSIAH.] Split-night study ([facility] [place]), split for AHI >= 5. - not contacted, please check on. Afterward, will need new machine, supplies, etc. Download 1 mo then before appt. Assessment & Plan (07/10/2025 11:24 AM EDT): Family requesting that this office take over JOSIAH. Split-night study ([facility] [place]), split for AHI >= 5. Afterward, will need new machine, supplies, etc. Download 1 mo then before appt. Assessment & Plan (05/08/2025 4:35 PM EDT): Family will bring CPAP to SNF. Has been noncompliant at home May benefit from re titration study Managed by Dr John in [place] Assessment & Plan (04/10/2025 1:49 PM EDT): Still have only PAPT. Get original PSG.0 Assessment & Plan (08/01/2024 11:49 AM EDT): Get original PSG (only received PAPT). Assessment & Plan (01/11/2024 2:07 PM EST): Get sleep studies for our records - [facility]. Also send to [facility] (though not sure if liliya'd there). Snackfxxnewwpm95/23/2024 Assessment & Plan (05/08/2025 4:35 PM EDT): (Continue current regimen.) Ojmeab8801/07/2024 Overview (07/27/2025): --- BET. Perhaps mild degree [...] desired. Resolved Problems ProblemNoted DateDiagnosed DateResolved DateParkinson gfjembm4801/07/2024 01/11/2024 Encounters DateTypeDepartmentCare ZltgJsfpexypwmo89/28/2025 1:15 PM EDTOffice Visit [facility] [address] [facility] [address] [place] [address] Mercedes Joy MD Seborrheic keratosis (Primary Dx); Actinic keratosis; Lentigines; Neoplasm of unspecified behavior of bone, soft tissue, and skin09/11/2025amboo flowsheet [facility] [address] [place] [phone] Mercedes Joy MD 09/11/20253822Bnmdla49/08/2025Telephone [facility] [address] [facility] [address] [place] [address] Claritza Nam MA 08/14/2025Telephone [facility] [address] [facility] [address] [place] [address] Claritza Nam MA 07/27/2025 12:45 PM EDTOffice Visit [facility] [address] [phone] Lenin Montoya MD Tremor (Primary Dx); Neurogenic pain; Carotid stenosis, bilateral; Sequelae of cerebral infarction; JOSIAH (obstructive sleep apnea); B12 deficiency; Cervical paraspinal muscle spasm07/27/2025amb flowsheet [facility] [address] [place] [address] Lenin Montoya MD 07/27/20257651Pajdyx89/26/2025 10:30 AM EDTOffice Visit [facility] [address] [phone] Lenin Montoya MD Tremor (Primary Dx); Neurogenic pain; Carotid stenosis, bilateral; Sequelae of cerebral infarction; JOSIAH (obstructive sleep apnea); Cervical paraspinal muscle spasm; B12 iqqynqskcu31/26/2025[facility] flowsheet [facility] [address] [place] [address] Lenin Montoya MD 07/10/20257002Qrylww54/14/2025 11:50 AM EDTOffice Visit [facility] [address] [phone] Blaise Dc DPM Verruca plantaris (Primary Dx); Foot pain, right; Diabetes mellitus due to underlying condition with diabetic polyneuropathy, unspecified whether long term acute care registered nurse insulin use (HCC); Pain due to onychomycosis of toenails of both feet06/28/2025amb flowsheet [facility] [address] [place] [phone] Blaise Dc DPM 06/28/2025Travelfrom Last 3 Months Family History Medical HistoryRelationNameCommentsHeart diseaseFatherCancerMotherMelanomaNeg Hx RelationNameStatusCommentsFatherDeceasedMotherDeceased Social History Tobacco UseTypesPacks/DayYears UsedDateSmoking Tobacco: FormerCigarettes Smokeless Tobacco: Never Tobacco Cessation:Counseling Given: Yes Alcohol UseStandard Drinks/WeekCommentsNever0 (1 standard drink = 0.6 oz pure alcohol)caffeine 1-2 cups/daySex and Gender InformationValueDate RecordedSex Assigned at BirthNot on fileLegal FgzMkgi0501/27/2023 6:35 PM EDTGender Identity Not on fileSexual OrientationNot on file Last Filed Vital Signs Vital SignReadingTime TakenCommentsBlood Egwjiowu211/7910 8:19 AM EDT Octli531909/14/2024 8:19 AM EDTTemperature--Respiratory Atqs453406/28/2025 11:28 AM EDTOxygen Saturation--Inhaled Oxygen Concentration--Lwlqwe60.2 kg (179 lb) 07/10/2025 10:36 AM YFTLdghcx026.7 cm (5' 8 )07/10/2025 10:36 AM EDTBody Mass Index27.22007/10/2025 10:36 AM EDT Plan of Treatment DateTypeDepartmentCare Team (Latest Contact Info)Hvkxgsoedlw69/06/2025 11:40 AM ESTOffice Visit [facility] [address] [facility] [address] [place] [phone] Blaise Dc, DPM [address] [facility] [address] [place] [address] 10/09/2025 1:45 PM ESTOffice Visit [facility] [address] [place] [address] Lenin Montoya MD [address] [facility] [address] [place] [address] 09/10/2026 1:15 PM EDTOffice Visit [facility] [address] [place] [address] Mercedes Joy MD [address] [place] [address] Health MaintenanceDue DateLast DoneCommentsDTaP/Tdap/Td Vaccines (1 - Tdap) 1946Influenza Vaccine (#1)51, 08/20/2023, 08/18/2022, Additional history existsCOVID-19 Vaccine ( season)2025 07/05/2025, 08/16/2023, 08/26/2021, Additional history existsPneumococcal Vaccine: 65+ CjqwjWdleboumx55/02/2017, 01/28/2015, 01/28/2015HIB VaccinesAged OutNo longer eligible based on patient's age to complete this topicHPV Vaccines Aged OutNo longer eligible based on patient's age to complete this topic Hepatitis A VaccinesAged OutNo longer eligible based on patient's age to complete this topicHepatitis B VaccinesAged OutNo longer eligible based on patient's age to complete this topicIPV VaccinesAged OutNo longer eligible based on patient's age to complete this topicMeningococcal B VaccineAged OutNo longer eligible based on patient's age to complete this topicMeningococcal VaccineAged OutNo longer eligible based on patient's age to complete this topicRotavirus VaccinesAged OutNo longer eligible based on patient's age to complete this topic Procedures Procedure NamePriorityDate/TimeAssociated DiagnosisCommentsSKIN / NAIL BIOPSY Tuqqeor5909/11/2025 1:13 PM EDT Neoplasm of unspecified behavior of bone, soft tissue, and skin CRYOTHERAPY SKIN HZLOTEGqpmfqa02/28/2025 1:10 PM EDT Actinic keratosis from Last 3 Months Results * Lesion biopsy (09/11/2025 1:13 PM [...] StatusEmily A Petitti MDDERM PROCEDURE ORDERABLESFinal Result from Last 3 Months Insurance Care Teams Team MemberRelationshipSpecialtyStart DateEnd Date Pj Sung MD [address] [place] [phone] PCP - GeneralMer[facility] Cityly Medicine12/02/23
--- OUTSIDE RECORDS SUMMARY | 2025-09-14 10:51 | XMS_ITS | Encounter Summary ---
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 No05/10/2025Hunger Vital SignAnswerDate RecordedWithin the past 12 months, you worried that your food would run out before you got the money to buymore.Never true05/10/2025Ran Out of Food in the Last YearNot on file05/10/2025Sex and Gender InformationValueDate RecordedSex Assigned at HqwcwNora27/27/2023 8:02 PM EDTLegal IkrZfcf5105/13/2022 10:17 PM EDTGender LmsezddwVixd22/27/2023 8:02 PM EDT Sexual OrientationHeterosexual or Tegbmkye67/27/2023 8:02 PM EDTdocumented as of this encounter Plan of Treatment DateTypeDepartmentCare Team (Latest Contact Info)Ksmsueadgot95/19/2025 10:00 AM ESTOffice Visit [facility] [place] [address] [place] [address] Mike Cisneros MD [address] [facility] [address] [place] [address] 01/30/2026 3:00 PM EDTFollow-[facility] [address] [place] [address] Ruthie Linda MD [address] [facility] [place] [place] [phone] NameTypePriorityAssociated DiagnosesOrder ScheduleBasic metabolic panelLab Routine Acute combined systolic and diastolic heart failure (CMS/HCC) Expected: 09/07/2025 (Approximate), Expires: 6B-type natriuretic peptideLabRoutine Acute combined systolic and diastolic heart failure (CMS/HCC) Expected: 09/07/2025 (Approximate), Expires: 09/07/2026documented as of this encounter Visit Diagnoses Diagnosis Acute combined systolic and diastolic heart failure (CMS/HCC)- Primary Acute combined systolic and diastolic heart failure documented in this encounter Care Teams Team MemberRelationshipSpecialtyStart DateEnd Date Pj Sung MD [address] [place] [address] PCP - GeneralFamily Medicine05/10/25 Pj Sung MD [address] [place] [address] 05/10/25documented as of this encounter
--- OUTSIDE RECORDS SUMMARY | 2025-09-14 10:51 | XMS_ITS | Clinical Summary ---
Author Organization [facility] Address [address] [place] [address] Phone Care Team Providers Care Tool/Die Maker Name Role Phone Unavailable Primary Care Provider Unavailabl e Social History Tobacco UseTypesPacks/DayYears UsedDateSmoking Tobacco: Never AssessedSex and Gender InformationValueDate RecordedSex Assigned at BirthNot on fileLegal Sex Male10/09/2022 2:16 PM ESTGender IdentityNot on fileSexual OrientationNot on file Plan of Treatment Not on file
--- OUTSIDE RECORDS SUMMARY | 2025-09-14 10:51 | XMS_ITS | Clinical Summary ---
Author Organization [employer] [facility] [employer] Address [id number] [address] [place] [address] Care Team Providers Care Golf Instructor Name Role Phone Pj Sung MD Primary Care Provider [phone] Social History Tobacco UseTypesPacks/DayYears UsedDateSmoking Tobacco: Never AssessedSex and Gender InformationValueDate RecordedSex Assigned at BirthNot on fileLegal Sex Male02/14/2025 11:32 AM EDTGender IdentityNot on fileSexual OrientationNot on file Plan of Treatment Health MaintenanceDue DateLast DoneCommentsDepression Pvxhhncrt14/25/1951Tobacco Aykxagceh94/25/1952Fall Risk Xjpnxiokc53/25/2004COVID-19 Vaccine ( season)/12/2022, 10/21/2022, 08/26/2021, Additional history exists Influenza Nynkpxo85/04/2023, 08/18/2022, 09/11/2021, Additional history existsDTaP,Tdap and Td Vaccines (2 - Td or Tdap) Zoster (Shingles) YbxggviLmyaezkka77/22/2025, 11/06/2020, 10/30/2019, Additional history exists [employer] Devices Not on file Insurance Care Teams Team MemberRelationshipSpecialtyStart Date Pj Sung MD [address] [facility], [place] [address] PCP - GeneralMercyone [facility] Centerly [facility]02/14/25
--- OUTSIDE RECORDS SUMMARY | 2025-09-14 10:51 | XMS_ITS | Encounter Summary ---
Author Organization [facility] Address [address] [place] [address] Care Team Providers Care Quarter Doper Name Role Phone Pj Sung MD Primary Care Provider [phone] Pj Sung MD Unavailable Encounter Details DateTypeDepartmentCare Team (Latest Contact Info)Vjbbqxbyfgy30/31/2025Telephone [facility] [address] [place] [address] Caro Calixto MA Social History Tobacco UseTypesPacks/DayYears UsedDateSmoking Tobacco: FormerCigarettes Smokeless Tobacco: NeverAlcohol UseStandard Drinks/WeekCommentsNot Currently0 (1 standard drink = 0.6 oz pure alcohol)[facility] UtilitiesAnswerDate RecordedIn the past 12 months has [...] heating?Not hard at all05/10/2025PHQ-2AnswerDate RecordedPatient Health Questionnaire-2 Uqoyg302TransportationAnswerDate RecordedIn the past 12 months, has lack [...] file05/10/2025Sex and Gender InformationValueDate RecordedSex Assigned at NjxoiBhzh31/27/2023 8:02 PM EDTLegal XwpJgpf1005/13/2022 10:17 PM EDTGender GutoxajwWtmw39/27/2023 8:02 PM EDT Sexual OrientationHeterosexual or Tcknolzp22/27/2023 8:02 PM EDTdocumented as of this encounter Plan of Treatment DateTypeDepartmentCare Team (Latest Contact Info)Gkbtfhbkmlt79/19/2025 10:00 AM ESTOffice Visit [facility] [address] [place] [address] Mike Cisneros MD [address] [facility] [place] [phone] 01/30/2026 3:00 PM EDTFollow-[facility] [address] [place] [address] Ruthie Linda MD [address] [facility] [place] [phone] documented as of this encounter Visit Diagnoses Not on filedocumented in this encounter Care Teams Team MemberRelationshipSpecialtyStart DateEnd Date Pj Sung MD [address] [place] [address] PCP - GeneralFamily Medicine05/10/25 Pj Sung MD [address] [place] [address] 05/10/25documented as of this encounter
--- OUTSIDE RECORDS SUMMARY | 2025-09-14 10:51 | XMS_ITS | Clinical Summary ---
Author Organization [facility] Address [address] [place] [address] Care Team Providers Care Clinic Scheduler Name Role Phone Pj Sung MD Primary Care Provider [phone] Pj Sung MD Unavailable Allergies Active AllergyReactionsCriticalityNoted DateCommentsAminolevulinic Acid Hcl Jyqdnvb9405/10/2025Iodinated Contrast Media07/17/2022Iodinated Contrast Media Uaazxzl9205/10/20250784Etglkmtcqmyms53/02/9222BlzfmqayqglfaQioyw85/26/2025 hypotension OqzyblvqgoxQvetyvp57/26/2845Czifwgj-Dhy-Tgo Reductase Gzyhjopsuq56/02/2022 Medications MedicationSigDispense QuantityRefillsLast FilledStart DateEnd DateStatus acyclovir [...] TAVR (transcatheter aortic valve replacement) 5Aortic stenosis, nqwcqz795Chronic kidney lnnzagn5105/11/2025 Assessment & Plan (05/15/2025 1:32 PM EDT): [...] function, creatinine today 1.56, will monitor Elevated oljsfbzw50/27/2025 Assessment & Plan (05/15/2025 1:19 PM EDT): [...] of chronic kidney disease and CHF Primary jtwfsqpquxkf41/26/2025 Assessment & Plan (05/15/2025 1:19 PM EDT): [...] start JAY or ARB Acute congestive heart awzgkyf4605/10/2025 Assessment & Plan (05/15/2025 1:32 PM EDT): [...] diabetes mellitus, with long-term current use of fnvjwlm0105/10/2025 Assessment & Plan (05/15/2025 1:19 PM EDT): [...] EDT): Insulin blood sugar check diet Other ervlomsrmcxhac80/26/2025 Assessment & Plan (05/15/2025 1:19 PM EDT): [...] AM EDT): Antilipemic agents diet Chronic atrial bkjhmyynkjns31/26/2025 Assessment & Plan (05/15/2025 1:19 PM EDT): [...] Plan (05/11/2025 5:43 PM EDT): Angina pectoris, gyknrfbq17/25/2025 Assessment & Plan (05/11/2025 5:43 PM EDT): COrders from past 72 hours: Case Request Quality Assurance Inspector: Coronary angiography, Right heart cath; Standing Cardiac catheterization; Standing Nonrheumatic aortic valve qpvvypny78/25/2025bnormal findings on diagnostic imaging of heart and coronary /28/2025quired buried penis 12/14/20245483Yijhzuqggoqvyu59/30/3038Qaqyfeiqj11/30/2025PH with urinary cqyapyuaeel22/30/2025Gross ophejymfp72/30/2025Incomplete bladder emptying 12/14/2024OAB (overactive bladder)12/14/2024Post-void suastkhvi83/30/2025ute kidney xiuhcc7306/05/2024enign essential wnuskj0001/07/2024 Overview (06/05/2024): Last Assessment & Plan: (Continue current regimen.) Option to incr to 4 pills/day if/when desired. Cervical paraspinal muscle spasm01/07/2024 Overview (06/05/2024): Last Assessment & Plan: (Continue home PT). Neurogenic pain01/07/2024 Overview (06/05/2024): Last Assessment & Plan: May request to restart GBP at a lower dose - 300 hs - when/if desired. Fvhpvisffxwgjn89/23/2024ongestive heart ikjckkb8711/17/2023Hearing loss11/17/2023 11/17/20237416Swawennpjnbrqf48/03/202401/03/2024Hypertensive heart and chronic kidney disease with heart failure and stage 1 through stage 4 chronic kidney disease, or unspecified chronic kidney qlyyjer66/01/2024Nausea Sensorineural hearing loss, tjgufoffp68 Stenosis of left renal yjwwwi35Tremor Chronic constipation with ijcqxdkv37olon ixfvii9806/10/2023 06/10/20236789Esnitulnkafekw74/27/202307/27/2023Family history of colon cancer Fecal kdqrhgx87High serum creatinine Loose bukmfo04History of colon polyps ulmonary hypertension due to left heart vqydvjo3810/05/2022 Pericardial zktezlgn96/21/2022oronary gyczaxxyteiknjze04/02/2022 Assessment & Plan (06/14/2023 3:03 PM EDT): Coronary artery disease is stable Continue GDMT- ASA, labetalol, zetia continue risk factor modifications- heart healthy diet, regular exercise as tolerated and continue all medications. Iseyslqllay00/02/2022 Assessment & Plan (06/14/2023 3:02 PM EDT): stable Aortic valve posgwumw00/02/2022 Assessment & Plan (06/14/2023 3:02 PM EDT): Recent echo 05/2023 with noted mod AO stenosis Stage 3 chronic kidney ejmyrxu6807/17/2022 Assessment & Plan (06/14/2023 3:05 PM EDT): BMP script sent Pulmonary edema07/17/2022Edema of lwnborpwoyc24/02/2022hronic atrial ktoqvxufiivp30/24/2019Atherosclerosis of renal hzowpr9502/26/2014Type 2 diabetes mellitus with stage 3 chronic kidney disease, without long-term current use of ciifdkf9408/12/2012cute on chronic diastolic heart rkemntu6905/03/2012 Overview (07/17/2022): Echocardiogram 01/08/2022: Normal LV systolic [...] (06/14/2023 3:05 PM EDT): Recent admit to [facility] for shortness of breath, acute HFpEF with ARTUR. BNP 3311, BUN 26, CR 1.5-1.9, LFT normal, K+ normal. Troponin level negative. CXR showed vascular congestion Pt was admitted and diuresed as inpt. [facility] III Continue GDMT- remains on jardiance and lasix 60 mg daily for diuresis Monitor daily weights, I&O, fluid restriction 1.5-2L/day, renal function and electrolytes- Script for BMP and CBC provided pt is also seeing PCP today Aortic valve /04/2012Type 1 diabetes qgnrpuqc04/04/2012Sleep apnea 03/18/2012Primary qupfwoafmtby93/04/8094Sgolknt39/04/2012Pulmonary heart disease, keuowlqprhw27/04/2012 Encounters DateTypeDepartmentCare TajwFhwxvefnlla17/31/2025Telephone [facility] [address] [place] [facility] [place] [address] Caro Calixto MA 09/07/2025Orders Only [facility] [address] [place] [facility] [place] [address] Stephanie Carl MA Acute combined systolic and diastolic heart failure (CMS/HCC) (Primary Dx) 09/04/2025Telephone [facility] [address] [place] [facility] [place] [address] Stephanie Carl MA 08/03/2025Telephone [facility] [address] [place] [phone] Cierra Chow 08/[facility] [address] [place] [address] Ginny Sampson MA 08/01/2025 3:[facility] [address] [place] [address] Ruthie Linda MD Stage 3b chronic kidney disease (CMS/HCC) (Primary Dx); Primary hypertension; Electrolyte disorder; Lower extremity edema; Hyperplasia of prostate; 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); Status post semsnm0907/31/2025Orders Only [facility] [address] [place] [address] Nava Vasquez MD 07/30/2025 10:40 AM EDTOffice Visit [facility] [address] [place] [address] Ruy Amanda CNP S/P TAVR (transcatheter aortic valve replacement) (Primary Dx); Chronic diastolic congestive heart failure (CMS/HCC); LBBB (left bundle branch block); Paroxysmal atrial fibrillation (CMS/HCC); Benign hypertensive heart disease with heart failure (CMS/HCC); Mixed qruotqbjyysbeh25/04/2025 11:30 AM EDTOffice Visit [facility] [address] [place] [address] Mike Cisneros MD S/P TAVR (transcatheter aortic valve replacement) (Primary Dx); Chronic diastolic congestive heart failure (CMS/HCC); LBBB (left bundle branch block); Longstanding persistent atrial fibrillation (CMS/HCC); Pulmonary hypertension (CMS/HCC); Coronary artery disease involving [place] coronary artery of [place] heart without angina pectoris; Pericardial effusion; Stage 3b chronic kidney disease (CMS/HCC)06/14/2025Orders Only [facility] [address] [place] [phone] Provider, MD Nava from Last 3 Months Immunizations ImmunizationAdministration DatesNext DueCovid (Pfizer) Bivalent Booster =>12 YRS 10/21/2022Influenza, Tqrzkgxnkov61/06/2023,08/18/2022,09/11/2021,08/27/2020, 08/15/2020,08/15/2019,08/29/2018,08/05/2017Influenza, trivalent, adjuvanted 08/27/2020Pfizer Covid-19 Vaccine, 12&, Fall 2022-3Pfizer SARS-CoV-2 Sevguskxunc02/12/2021,01/01/2021,1Pneumococcal Conjugate PCV 131Pneumococcal Polysaccharide QUC288301/28/2015Pneumococcal, Unspecified 01/28/2015RSV, Adult, Oxhhzerp53/07/0042Vxdl05/16/2019Zoster, Recombinant 11/06/2020,10/30/2019Zoster, live09/20/2015 Family History Medical HistoryRelationNameCommentsCoronary artery diseaseFatherRelationName StatusCommentsFatherDeceasedMotherDeceased Social History Tobacco UseTypesPacks/DayYears UsedDateSmoking Tobacco: FormerCigarettes Smokeless Tobacco: Never Tobacco Cessation:Counseling Given: Not Answered Alcohol UseStandard Drinks/WeekCommentsNot Currently0 (1 standard drink = 0.6 oz pure alcohol)[facility] UtilitiesAnswerDate RecordedIn the past 12 months has the [employer], gas, oil, or water [employer] threatened to shut off services in your [...] homeless or living in a mcc (including now)?No05/10/2025 Hunger Vital SignAnswerDate RecordedWithin the past 12 months, you worried that your food would run out before you got the money to buymore.Never true05/10/2025 Ran Out of Food in the Last YearNot on file05/10/2025Sex and Gender Information ValueDate RecordedSex Assigned at BwrnlCwfx98/27/2023 8:02 PM EDTLegal SexMale 05/13/2022 10:17 PM EDTGender DoauicqoPiiv06/27/2023 8:02 PM EDTSexual OrientationHeterosexual or Grqklkvo40/27/2023 8:02 PM EDT Last Filed Vital Signs Vital SignReadingTime TakenCommentsBlood Cyrvzreq445/6709 2:52 PM EDT Ejesb9596 2:52 PM PATBxoavxhujuu73.7 ??C (98.1 ??F)05/17/2025 7:25 PM EDTRespiratory Zddx7165 7:25 PM EDTOxygen Jyrlqmrknh83%07/30/2025 10:52 AM EDTInhaled Oxygen Concentration--Mmtcvw87 kg (176 lb 6.4 oz)08/01/2025 2:52 PM QBYSgsxvk402.9 cm (6')08/01/2025 2:52 PM EDTBody Mass Index23.9208/01/2025 2:52 PM EDT Plan of Treatment DateTypeDepartmentCare Team (Latest Contact Info)Pdhurkcdkhq06/19/2025 10:00 AM ESTOffice Visit [facility] [address] [place] [facility] [place] [address] Mike Cisneros MD [address] [facility] [place] [phone] 01/30/2026 3:[address] [facility] [address] [place] [address] Ruthie Linda MD [address] [facility] [address] Health MaintenanceDue DateLast DoneCommentsMedicare Annual Wellness (AWV) 1939Diabetes: Retinopathy Tubvgmkms92/25/1949Influenza Vaccine (#1) 510/11/2023, 08/20/2023, 08/18/2022, Additional history existsDiabetes: Hemoglobin A1C08/11/315948/5COVID-19 Vaccine ( season) 508/, 08/16/2023, 10/21/2022, Additional history exists Depression Fvribbmpy42/19/092754/Fall Risk Ozcvmusrs42/ Adult Mglqump03Pneumococcal Vaccine: 50+ YearsCompleted 08/16/2017, 01/28/2015, 01/28/2015Zoster YpexjpyhRhnrdswpw22/22/2025, 11/06/2020, 10/30/2019, Additional history existsHIB VaccinesAged OutNo [...] DateModel / Serial / LotKit,Heart Valve,Sapien3,26mm - [id number] - [id number] Implanted:Qty: 1 on 05/15/2025 by [facility]Prosthetic ValveN/A: HeartEDWARDS ICKEMIPUQBZS59/26/2027 [id number] / [id number] / Procedures Procedure NamePriorityDate/TimeAssociated DiagnosisCommentsCOMPLETE TRANSTHORACIC ECHO (TTE) W/WO IMAGING AGENT, STRAIN, 3D, BUBBLE STUDYRoutine 06/14/2025 1:26 PM EDTHEMOGLOBIN L9QRei-Vi89/27/2025 4:27 AM EDT from Last 3 Months or Most Recently Relevant to Health Maintenance Results * Complete Echo (TTE) w/wo Imaging Agent, Strain, 3D, Bubble Study (06/14/2025 1:26 PM EDT)Anatomical RegionLateralityModalityUltrasound Narrative Authorizing ProviderResult TypeResult StatusHistorical Provider [facility] ECHO PROCEDURESFinal Result * (ABNORMAL) Hemoglobin A1c (05/11/2025 4:27 AM EDT)ComponentValueRef RangeTest MethodAnalysis TimePerformed AtPathologist SignatureHemoglobin A1C9.3(H)4.0 - 6.0 %05/11/2025 1:51 PM [facility] ([facility])Estimated Average Glucose 220mg/dL05/11/2025 1:51 PM [facility] ([facility])Specimen (Source) Anatomical Location / LateralityCollection Method / VolumeCollection Time Received TimeBloodVenous blood specimen / UnknownVenipuncture / Unknown 05/11/2025 4:27 AM EDT05/11/2025 4:37 AM EDT Narrative Authorizing ProviderResult TypeResult StatusHani Adam MDLAB BLOOD ORDERABLES Final ResultPerforming OrganizationAddressCity/State/ZIP CodePhone Number [facility] ([facility]) [address] [place], [place] [phone] from Last 3 Months or Most Recently Relevant to Health Maintenance Insurance Advance Directives * Full Code (Latest Code Status on File) Date ActivatedDate InactivatedComments05/10/2025 9:05 AM05/17/2025 10:26 PM * DNR CC-A Date ActivatedDate InactivatedComments05/10/2025 4:16 AM05/10/2025 9:05 AMQuestion AnswerCommentsSelect If Any Apply:* No Intubation Care Teams Team MemberRelationshipSpecialty[place] [address] [place] [phone] PCP - GeneralFamily Medicine05/10/25 Pj Sung MD [address] [place] [phone] 05/10/25
--- OUTSIDE RECORDS SUMMARY | 2025-09-14 10:51 | XMS_ITS | Patient Health Record ---
Author Organization [facility] in [place] Address [address] [place] [address] Care Team Providers Care Cd Mixer Helper Name Role Phone Erik Sung Primary Care Provider [phone] Allergies Allergen (clinical drug ingredient) Drug/Non Drug Allergy documented on EMR Reaction Allergy Type Onset Date Status simvastatin Simvastatin elevated liver enzymes Drug Allerg y Active Results Component Value Reference Range Notes AMMONIA Reviewed date:01/18/2025 09:02:22 PM Interpretation: Performing Lab: Notes/Report: [facility] , Ammonia <10 11-32 umol/L Performing Lab:see noteML - [facility] LBBNP Reviewed date:01/18/2025 09:02:22 PM Interpretation: Performing Lab: Notes/Report: [facility] ,NT Pro B Type Natriuretic Hhpu6920.0<=1800.0 pg/mL RESULTS CALLED TO cynthia valenzuela lpn @BY Cecilia Elder at 1158 Performing Lab:see noteML - [facility] LBUA DIP NONAUTO WO MICRO ([id number]) - IN OFFICE Reviewed date:09/04/2025 05:52:50 PM Interpretation: Performing Lab: Notes/Report: COLORyellowCLARITYclearGLUCOSElargeBILIRUBINnKETONEnSPECIFIC GRAVITY1.010BLOOD+ PH5.0PROTEIN+UROBILINOGENnNITRITEnLEUKOCYTE ESTERASE+BNP Reviewed date:04/15/2025 04:42:25 PM Interpretation: Performing Lab: Notes/Report: [facility] ,NT Pro B Type Natriuretic Wjyd9293.0<=1800.0 pg/mLRESULTS CALLED TO DR. SUNG Performing Lab:see noteML - [facility] LBBNP Reviewed date:05/09/2025 09:23:04 PM Interpretation: Performing Lab: Notes/Report: [facility] ,NT Pro B Type Natriuretic Bhug1867.0<=1800.0 pg/mLRESULTS CALLED TO MARIA LUZ CHAPMANPerforming Lab:see noteML - [facility] LBCBC AUTO DIFF Reviewed date:10/29/2024 08:20:36 PM Interpretation: Performing Lab: Notes/Report: [facility] ,White Blood Count7.54.0-11.0 10 3/uLRed Blood Count4.054.70-6.10 10 6/uL Agfkfpfyim08.914.0-18.0 g/xTGyupjgqbab91.642.0-54.0 %Mean Corpuscular Volume 100.280.0-94.0 fLMean Corpuscular Pcgxphksrx29.325.9-34.0 pgMean Corpuscular HGB Conc34.229.9-35.2 g/dLRed Cell Distribution Width14.111.0-15.0 %Platelet Count 986682-826 10 3/uLMean Platelet Ejqcyj45.89.5-13.5 fLNeutrophils Percent Auto 78.843.0-75.0 %Lymphocytes Percent Auto8.820.5-60.0 %Monocytes Percent Auto9.6 1.7-12.0 %Eosinophils Percent Auto1.70.9-7.0 %Basophils Percent Auto0.40.2-2.0 % Immature Granulocytes Pct Auto0.70.0-0.5 %Neutrophils Absolute Auto5.91.4-6.5 10 3/uLLymphocytes Absolute Auto0.71.2-3.8 10 3/uLMonocytes Absolute Auto0.70.3-0.8 10 3/uLEosinophils Absolute Auto0.10.0-0.7 10 3/uLBasophils Absolute Auto0.00.0- 0.1 10 3/uLImmature Granulocytes Abs Auto0.050.00-0.03 10 3/uLPerforming Lab:see noteML - [facility] LBPROF 14(COMP METB) Reviewed date:10/29/2024 08:20:36 PM Interpretation: Performing Lab: Notes/Report: [facility] ,Neyebl998759-083 mmol/LPotassium4.13.5-5.1 mmol/NXgxdvxzc91910-137 mmol/LCarbon Pwmnhcn40.221.0-32.0 mmol/LAnion Gap10.4Eoxkglu80598-261 mg/dLBlood Urea Pcmicpzc59.07.0-18.0 mg/dLCreatinine1.780.70-1.30 mg/dLEstimated GFR ( Okwwtye64>=60 mL/min/1.73m 2Estimated GFR (Non- Ame37>=60 mL/min/1.73m 2 BUN Creatinine Ratio13.3Qpupmol5.78.5-10.1 mg/dLBilirubin Total0.70.2-1.0 mg/dL Aspartate Amino Ommufazmgdu0892-03 U/LAlanine Isogibkhaymmukrw4791-69 U/L Alkaline Qeglhvvdlhm4735-942 U/LTotal Protein6.16.4-8.2 g/dLAlbumin Level2.83.4- 5.0 g/dLGlobulin3.3Albumin Globulin Ratio0.8Performing Lab:see noteML - [facility] LBProthrombin Time INR Reviewed date:10/29/2024 08:20:36 PM Interpretation: Performing Lab: Notes/Report: [facility] ,Prothrombin Time10.59.0-11.6 secINR0.99 DESIRED INR: 2.0-3.0 CONDITIONS NOT LISTED BELOW 2.5-3.5 FOR PROSTHETIC HEART VALVE REPLACEMENT 2.5-3.5 RECURRENT THROMBOSIS Performing Lab:see noteML - [facility] LBPROF CHEM 8 (BAS METB) Reviewed date:10/29/2024 08:20:36 PM Interpretation: Performing Lab: Notes/Report: [facility] ,Pnochy905331-725 mmol/LPotassium4.63.5-5.1 mmol/NKrudywei38643-599 mmol/LCarbon Trrsfrt47.021.0-32.0 mmol/LAnion Gap18.1Nujifnm49130-416 mg/dLBlood Urea Semsoyxh61.07.0-18.0 mg/dLCreatinine1.850.70-1.30 mg/dLEstimated GFR ( Onpztix64>=60 mL/min/1.73m 2Estimated GFR (Non- Ame35>=60 mL/min/1.73m 2 BUN Creatinine Ratio16.1Gjmntre4.48.5-10.1 mg/dLPerforming Lab:see noteML - [facility] no Diff (Hemogram) Reviewed date:10/29/2024 08:20:36 PM Interpretation: Performing Lab: Notes/Report: [facility] ,White Blood Count15.44.0-11.0 10 3/uLRed Blood Count3.724.70-6.10 10 6/uL Bqyogbmrxp40.714.0-18.0 g/vHHzqkprllnx19.542.0-54.0 %Mean Corpuscular Volume 103.580.0-94.0 fLMean Corpuscular Zgmsxyuqah34.125.9-34.0 pgMean Corpuscular HGB Conc33.029.9-35.2 g/dLRed Cell Distribution Width14.111.0-15.0 %Platelet Count 418243-153 10 3/uLMean Platelet Pfgxmm38.69.5-13.5 fLPerforming Lab:see noteML - [facility] Reviewed date:10/31/2024 12:23:54 PM Interpretation: Performing Lab: Notes/Report: [facility] ,White Blood Count11.94.0-11.0 10 3/uLRed Blood Count3.064.70-6.10 10 6/uL Wekymrubsw32.514.0-18.0 g/xCWfsuvcqnhr97.842.0-54.0 %Mean Corpuscular Volume 103.980.0-94.0 fLMean Corpuscular Hklltnqhtl77.325.9-34.0 pgMean Corpuscular HGB Conc33.029.9-35.2 g/dLRed Cell Distribution Width14.611.0-15.0 %Platelet Count 031364-631 10 3/uLMean Platelet Pyddra66.69.5-13.5 fLNeutrophils Percent Auto 74.643.0-75.0 %Lymphocytes Percent Auto10.820.5-60.0 %Monocytes Percent Auto11.8 1.7-12.0 %Eosinophils Percent Auto1.70.9-7.0 %Basophils Percent Auto0.30.2-2.0 % Immature Granulocytes Pct Auto0.80.0-0.5 %Neutrophils Absolute Auto8.91.4-6.5 10 3/uLLymphocytes Absolute Auto1.31.2-3.8 10 3/uLMonocytes Absolute Auto1.40.3-0.8 10 3/uLEosinophils Absolute Auto0.20.0-0.7 10 3/uLBasophils Absolute Auto0.00.0- 0.1 10 3/uLImmature Granulocytes Abs Auto0.090.00-0.03 10 3/uLPerforming Lab:see noteML - [facility] LBPROF CHEM 8 (BAS METB) Reviewed date:10/31/2024 12:23:54 PM Interpretation: Performing Lab: Notes/Report: [facility] ,Dydqrn440732-072 mmol/LPotassium4.63.5-5.1 mmol/YNybqzxtw83650-301 mmol/LCarbon Pdykewy39.121.0-32.0 mmol/LAnion Gap15.3Fiwpnfl60466-903 mg/dLBlood Urea Xcfvwtyf47.07.0-18.0 mg/dLCreatinine1.690.70-1.30 mg/dLEstimated GFR ( Qwiswqa53>=60 mL/min/1.73m 2Estimated GFR (Non- Ame39>=60 mL/min/1.73m 2 BUN Creatinine Ratio17.4Ynzezim8.38.5-10.1 mg/dLPerforming Lab:see note - [facility] LBURINE T PROTEIN CREAT RATIO Reviewed date:12/24/2024 11:26:08 AM Interpretation: Performing Lab: Notes/Report: [facility] ,Total Protein Urine Jnasgh31.3<=11.9 mg/dLCreatinine Urine Rwylmu55.4620.00- 300.00 mg/dLProtein Creatinine Ratio Urine0.27Performing Lab:see noteML - [facility] LBCBC AUTO DIFF Reviewed date:02/14/2025 07:52:08 PM Interpretation: Performing Lab: Notes/Report: [facility] ,White Blood Count8.14.0-11.0 10 3/uLRed Blood Count3.844.70-6.10 10 6/uL Tkdikyzxrf56.114.0-18.0 g/cOOmybjubxht32.642.0-54.0 %Mean Corpuscular Ducham44.1 80.0-94.0 fLMean Corpuscular Rbcmhsimdd43.925.9-34.0 pgMean Corpuscular HGB Conc 32.129.9-35.2 g/dLRed Cell Distribution Width16.611.0-15.0 %Platelet Gtoxc535 150-450 10 3/uLMean Platelet Gfeohp37.69.5-13.5 fLNeutrophils Percent Auto81.1 43.0-75.0 %Lymphocytes Percent Auto8.420.5-60.0 %Monocytes Percent Auto7.61.7- 12.0 %Eosinophils Percent Auto2.00.9-7.0 %Basophils Percent Auto0.40.2-2.0 % Immature Granulocytes Pct Auto0.50.0-0.5 %Neutrophils Absolute Auto6.61.4-6.5 10 3/uLLymphocytes Absolute Auto0.71.2-3.8 10 3/uLMonocytes Absolute Auto0.60.3-0.8 10 3/uLEosinophils Absolute Auto0.20.0-0.7 10 3/uLBasophils Absolute Auto0.00.0- 0.1 10 3/uLImmature Granulocytes Abs Auto0.040.00-0.03 10 3/uLPerforming Lab:see noteML - [facility] LBProthrombin Time INR Reviewed date:02/14/2025 07:52:08 PM Interpretation: Performing Lab: Notes/Report: [facility] ,Prothrombin Time10.79.0-11.6 secINR1.01 DESIRED INR: 2.0-3.0 CONDITIONS NOT LISTED BELOW 2.5-3.5 FOR PROSTHETIC HEART VALVE REPLACEMENT 2.5-3.5 RECURRENT THROMBOSIS Performing Lab:see noteML - [facility] LBECG 12 lead Reviewed date:02/14/2025 07:52:08 PM Interpretation: Performing Lab: Notes/Report: Source Facility: [facility]-[address] [place] [address] [address] Electrocardiograph Report Signed Patient: NADIR HEREDIA MR#: [id number] : 1940 Acct:[id number] Age/Sex: 85 / M ADM Date: 02/14/25 Loc: MS 203-[address]: Van Sung M.D. Ordering Physician: Josie Astudillo Date of Service: 02/14/25 Procedure(s): ECG 12 lead Accession Number(s): [id number] cc: [facility] Test Date: 2025-02-14 Pat Name: NADIR HEREDIA Department: Room: - Gender: Male [employer] Machine Operator: : 1940 Requested By: 1854 Order Number: [id number] Reading MD: CLARIBEL PUGA M.D. Measurements Intervals [place] Rate: 75 P: -00226 MS: -68854 QRS: -60 QRSD: 100 T: 68 QT: [...] Signed By: 02/14/25 1728 DD/ 1008 TD/TT: Serging Machine Operator Automatic:CBC AUTO DIFF Reviewed date:02/18/2025 03:43:48 PM Interpretation: Performing Lab: Notes/Report: [facility] ,White Blood Count8.24.0-11.0 10 3/uLRed Blood Count3.984.70-6.10 10 6/uL Dgqvrpsnjc26.314.0-18.0 g/uZVyghqapanx64.542.0-54.0 %Mean Corpuscular Yuazld75.2 80.0-94.0 fLMean Corpuscular Oejwfangbc35.425.9-34.0 pgMean Corpuscular HGB Conc 31.829.9-35.2 g/dLRed Cell Distribution Width16.911.0-15.0 %Platelet Hcfpm586 150-450 10 3/uLMean Platelet Cmvanv21.49.5-13.5 fLNeutrophils Percent Auto75.2 43.0-75.0 %Lymphocytes Percent Auto9.320.5-60.0 %Monocytes Percent Auto12.01.7- 12.0 %Eosinophils Percent Auto2.80.9-7.0 %Basophils Percent Auto0.50.2-2.0 % Immature Granulocytes Pct Auto0.20.0-0.5 %Neutrophils Absolute Auto6.21.4-6.5 10 3/uLLymphocytes Absolute Auto0.81.2-3.8 10 3/uLMonocytes Absolute Auto1.00.3-0.8 10 3/uLEosinophils Absolute Auto0.20.0-0.7 10 3/uLBasophils Absolute Auto0.00.0- 0.1 10 3/uLImmature Granulocytes Abs Auto0.020.00-0.03 10 3/uLPerforming Lab:see noteML - [facility] LBBNP Reviewed date:03/08/2025 07:11:26 PM Interpretation: Performing Lab: Notes/Report: [facility] ,NT Pro B Type Natriuretic Izcq5644.0<=1800.0 pg/mLRESULTS CALLED TO RAULITO ROBERTO, RNPerforming Lab:see noteML - [facility] LBCBC AUTO DIFF Reviewed date:03/08/2025 07:11:26 PM Interpretation: Performing Lab: Notes/Report: [facility] ,White Blood Count7.84.0-11.0 10 3/uLRed Blood Count3.754.70-6.10 10 6/uL Lrixblrcmv07.414.0-18.0 g/xGVxnkvocvdr21.442.0-54.0 %Mean Corpuscular Kjhnmi10.1 80.0-94.0 fLMean Corpuscular Lvafiewmsz77.725.9-34.0 pgMean Corpuscular HGB Conc 31.129.9-35.2 g/dLRed Cell Distribution Width17.911.0-15.0 %Platelet Fltas413 150-450 10 3/uLMean Platelet Byxukj98.59.5-13.5 fLNeutrophils Percent Auto76.8 43.0-75.0 %Lymphocytes Percent Auto9.720.5-60.0 %Monocytes Percent Auto9.61.7- 12.0 %Eosinophils Percent Auto3.30.9-7.0 %Basophils Percent Auto0.50.2-2.0 % Immature Granulocytes Pct Auto0.10.0-0.5 %Neutrophils Absolute Auto6.01.4-6.5 10 3/uLLymphocytes Absolute Auto0.81.2-3.8 10 3/uLMonocytes Absolute Auto0.80.3-0.8 10 3/uLEosinophils Absolute Auto0.30.0-0.7 10 3/uLBasophils Absolute Auto0.00.0- 0.1 10 3/uLImmature Granulocytes Abs Auto0.010.00-0.03 10 3/uLPerforming Lab:see noteML - [facility] LBPROF CHEM 8 (BAS METB) Reviewed date:03/08/2025 07:11:26 PM Interpretation: Performing Lab: Notes/Report: [facility] ,Hqeocl424685-249 mmol/LPotassium4.63.5-5.1 mmol/QDiqjzwhy92762-344 mmol/LCarbon Keywpkh06.421.0-32.0 mmol/LAnion Gap12.0Layvzyd90820-743 mg/dLBlood Urea Uyuywkch04.07.0-18.0 mg/dLCreatinine1.790.70-1.30 mg/dLEstimated GFR ( Mfxzwqg06>=60 mL/min/1.73m 2Estimated GFR (Non- Ame36>=60 mL/min/1.73m 2 BUN Creatinine Ratio13.3Peuxgny8.98.5-10.1 mg/dLPerforming Lab:see noteML - [facility] LBTroponin I High Sensitivity Reviewed date:03/08/2025 07:11:26 PM Interpretation: Performing Lab: Notes/Report: [facility] ,Troponin I High Exojbahydba84.54.0-76.1 pg/mL CUT-OFF POINTS HAVE BEEN ESTABLISHED BASED [...] AND CLINICAL INFORMATION. Performing Lab:see noteML - [facility] LBTroponin I High Sensitivity Reviewed date:03/08/2025 07:11:26 PM Interpretation: Performing Lab: Notes/Report: [facility] ,Troponin I High Bnsxvnkzlvo69.24.0-76.1 pg/mL CUT-OFF POINTS HAVE BEEN ESTABLISHED BASED [...] AND CLINICAL INFORMATION. Performing Lab:see note - [facility] LBBNP Reviewed date:05/09/2025 09:23:04 PM Interpretation: Performing Lab: Notes/Report: [facility] ,NT Pro B Type Natriuretic Zxrs1868.0<=1800.0 pg/mLRESULTS CALLED TO DR. NASH CARABALLO at 1926Performing Lab:see note - [facility] LBCBC AUTO DIFF Reviewed date:05/09/2025 09:23:04 PM Interpretation: Performing Lab: Notes/Report: [facility] ,White Blood Count8.14.0-11.0 10 3/uLRed Blood Count3.814.70-6.10 10 6/uL Euowcrzkty82.014.0-18.0 g/nRWsduepebsc45.042.0-54.0 %Mean Corpuscular Xhvhgg65.0 80.0-94.0 fLMean Corpuscular Ygbudzsouc74.225.9-34.0 pgMean Corpuscular HGB Conc 31.329.9-35.2 g/dLRed Cell Distribution Width19.011.0-15.0 %Platelet Clyzc667 150-450 10 3/uLMean Platelet Xvwhbe35.29.5-13.5 fLNeutrophils Percent Auto77.8 43.0-75.0 %Lymphocytes Percent Auto8.620.5-60.0 %Monocytes Percent Auto11.31.7- 12.0 %Eosinophils Percent Auto1.20.9-7.0 %Basophils Percent Auto0.40.2-2.0 % Immature Granulocytes Pct Auto0.70.0-0.5 %Neutrophils Absolute Auto6.31.4-6.5 10 3/uLLymphocytes Absolute Auto0.71.2-3.8 10 3/uLMonocytes Absolute Auto0.90.3-0.8 10 3/uLEosinophils Absolute Auto0.10.0-0.7 10 3/uLBasophils Absolute Auto0.00.0- 0.1 10 3/uLImmature Granulocytes Abs Auto0.060.00-0.03 10 3/uLPerforming Lab:see noteML - [facility] LBPROF 14(COMP METB) Reviewed date:05/09/2025 09:23:04 PM Interpretation: Performing Lab: Notes/Report: [facility] ,Dvqaou178859-676 mmol/LPotassium4.93.5-5.1 mmol/TWnpsomew16750-427 mmol/LCarbon Ewsqner05.821.0-32.0 mmol/LAnion Gap14.3Xjgjvgs18972-049 mg/dLBlood Urea Fmsippkf30.07.0-18.0 mg/dLCreatinine1.800.70-1.30 mg/dLEstimated GFR ( Ucuapeb25>=60 mL/min/1.73m 2Estimated GFR (Non- Ame36>=60 mL/min/1.73m 2 BUN Creatinine Ratio15.2Faruzep5.28.5-10.1 mg/dLBilirubin Total0.40.2-1.0 mg/dL Aspartate Amino Xqkaiosskcb9586-18 U/LAlanine Gfxoiyacqotzntuu2347-48 U/L Alkaline Kfxhtpnhgoo0658-415 U/LTotal Protein6.86.4-8.2 g/dLAlbumin Level2.93.4- 5.0 g/dLGlobulin3.9Albumin Globulin Ratio0.7Performing Lab:see noteML - [facility] LBPROF CHEM 8 (BAS METB) Reviewed date:05/09/2025 09:23:04 PM Interpretation: Performing Lab: Notes/Report: [facility] ,Ffsctz254228-766 mmol/LPotassium4.73.5-5.1 mmol/DFbqljtct02798-961 mmol/LCarbon Yvxudzy57.221.0-32.0 mmol/LAnion Gap12.7Jepwioo60193-537 mg/dLBlood Urea Flmymsry33.07.0-18.0 mg/dLCreatinine1.900.70-1.30 mg/dLEstimated GFR ( Iefshwx06>=60 mL/min/1.73m 2Estimated GFR (Non- Ame34>=60 mL/min/1.73m 2 BUN Creatinine Ratio15.6Zhstfkt7.08.5-10.1 mg/dLPerforming Lab:see noteML - [facility] LBUA (CLEAN or CATCH) FILM LABORATORY TECHNICIAN or MICRO IF IND. Reviewed date:05/09/2025 09:23:04 PM Interpretation: Performing Lab: Notes/Report: [facility] ,Color UrineLT. YELLOWYELLOWClarity UrineCLEARCLEARSpecific [place] Urine<=1.005 1.005-1.025pH Urine6.05.0-9.0Protein UrineNEGATIVENEG/TRACE mg/dLGlucose Urine UA>=1000NEGATIVE mg/dLBilirubin UrineNEGATIVENEGATIVEKetones UrineNEGATIVE NEGATIVE mg/dLBlood UrineNEGATIVENEGATIVENitrite UrineNEGATIVENEGATIVE Urobilinogen Urine0.20.2-1.0 EU/dLLeukocyte Esterase UrineNEGATIVENEGATIVEUrine Microscopic IndicatedNOPerforming Lab:see noteML - [facility] LB Troponin I High Sensitivity Reviewed date:05/09/2025 09:23:04 PM Interpretation: Performing Lab: Notes/Report: [facility] ,Troponin I High Yisjjhaqazo38.04.0-76.1 pg/mL CUT-OFF POINTS HAVE BEEN ESTABLISHED BASED [...] AND CLINICAL INFORMATION. Performing Lab:see noteML - [facility] LBECG 12 lead Reviewed date:05/09/2025 09:23:04 PM Interpretation: Performing Lab: Notes/Report: Source Facility: [place] [address] Electrocardiograph Report Signed Patient: NADIR HEREDIA MR#: [id number] : 1940 Acct:[id number] Age/Sex: 85 / M ADM Date: 05/08/25 Loc: ER Attending Dr: Ordering Physician: Flaco Haynes M.D. Date of Service: 05/08/25 Procedure(s): ECG 12 lead Accession Number(s): [id number] cc: [facility] Test Date: 2025-05-08 Pat Name: NADIR HEREDIA Department: Room: - Gender: Male [employer] Operator: : 1940 Requested By: 1030 Order Number: [id number] Reading MD: CLARIBEL PUGA M.D. Measurements Intervals [place] Rate: 70 P: -41793 MS: -48272 QRS: 66 QRSD: 94 T: 66 QT: 408 QTc: 429 Interpretive Statements 1210 Atrial fibrillation 3433 Septal myocardial infarction, probably old [address] depression, probably digitalis effect 9150 abnormal ECG Compared to ECG 03/08/2025 09:45:12 Aberrant conduction of supraventricular beat(s) no longer present Myocardial infarct finding still present ST (T wave) deviation still present Electronically Signed On 05-08-2025 22:01:26 EDT by CLARIBEL PUGA M.D. Dictated By: CLARIBEL PUGA Signed By: 05/08/251 DD/ 39 TD/TT: Serging Machine Operator Automatic:CBC AUTO DIFF Reviewed date:05/09/2025 09:23:04 PM Interpretation: Performing Lab: Notes/Report: [facility] ,White Blood Count9.04.0-11.0 10 3/uLRed Blood Count3.764.70-6.10 10 6/uL Hemoglobin9.914.0-18.0 g/zXCsoatffezx59.642.0-54.0 %Mean Corpuscular Ufwfjv59.0 80.0-94.0 fLMean Corpuscular Xuuoqfpdux79.325.9-34.0 pgMean Corpuscular HGB Conc 31.329.9-35.2 g/dLRed Cell Distribution Width19.011.0-15.0 %Platelet Rsmkz828 150-450 10 3/uLMean Platelet Idggcs50.49.5-13.5 fLNeutrophils Percent Auto74.5 43.0-75.0 %Lymphocytes Percent Auto10.220.5-60.0 %Monocytes Percent Auto12.91.7- 12.0 %Eosinophils Percent Auto1.40.9-7.0 %Basophils Percent Auto0.30.2-2.0 % Immature Granulocytes Pct Auto0.70.0-0.5 %Neutrophils Absolute Auto6.71.4-6.5 10 3/uLLymphocytes Absolute Auto0.91.2-3.8 10 3/uLMonocytes Absolute Auto1.20.3-0.8 10 3/uLEosinophils Absolute Auto0.10.0-0.7 10 3/uLBasophils Absolute Auto0.00.0- 0.1 10 3/uLImmature Granulocytes Abs Auto0.060.00-0.03 10 3/uLPerforming Lab:see noteML - [facility] LBTroponin I High Sensitivity Reviewed date:05/09/2025 09:23:04 PM Interpretation: Performing Lab: Notes/Report: [facility] ,Troponin I High Luusthracqb80.44.0-76.1 pg/mL CUT-OFF POINTS HAVE BEEN ESTABLISHED BASED [...] CLINICAL INFORMATION. Performing Lab:see noteML - [facility] LBCA echo limited Reviewed date:05/09/2025 09:23:04 PM Interpretation: Performing Lab: Notes/Report: Source Facility: [place] [address] Cardiology Report Signed Patient: NADIR HEREDIA MR#: [id number] : 1940 Acct:[id number] Age/Sex: 85 / M ADM Date: 05/08/25 Loc: MS 215-[address]: Van Sung M.D. Ordering Physician: Toby Piedra M.D. Date of Service: 05/09/25 Procedure(s): CA echo limited Accession Number(s): [id number] cc: Toby Piedra M.D.; Van Sung M.D. Patient Name: NADIR HEREDIA MR#: [id number] : 1940 Exam Date: 05/09/2025 Ordering Doctor: [...] PUGA Signed By: 05/09/251920 DD/ 19 TD/TT: Serging Machine Operator Automatic:CT chest zachary adames Reviewed date:05/27/2025 04:12:29 PM Interpretation: Performing Lab: Notes/Report: Source Facility: [facility]-[address] [place] [address] [place] [address] CT Scan Report Signed Patient: NADIR HEREDIA MR#: [id number] : 1940 Acct:[id number] Age/Sex: 85 / M ADM Date: 05/25/25 Loc: CT Attending Dr: Van Sung M.D. Ordering Physician: Van Sung M.D. Date of Service: 05/25/25 Procedure(s): CT chest wo con Accession Number(s): [id number] cc: Van Sung M.D. [place] [address] Patient Name: NADIR HEREDIA MRN: [id number] date: 1940 Sex: M Assigned Patient Location: CT Current Patient Location: CT Accession/Order Number: [id number] Exam Date: 05/25/2025 19:35 Report Date: 05/25/2025 [...] Doll M.D. 05/25/2025 7:38 PM Dictation Location: [place] [address] Electronically authenticated by: [id number] Y Date: 05/25/2025 19:38 Dictated By: Carlos Doll M.D. Signed By: 05/25/251940 DD/ 37 TD/TT: Serging Machine Operator Automatic:CBC AUTO DIFF Reviewed date:05/28/2025 06:07:27 PM Interpretation: Performing Lab: Notes/Report: [facility] ,White Blood Count8.94.0-11.0 10 3/uLRed Blood Count3.694.70-6.10 10 6/uL Hemoglobin9.414.0-18.0 g/xDFkuclxfmwd73.842.0-54.0 %Mean Corpuscular Qeeehv69.5 80.0-94.0 fLMean Corpuscular Ktdgasthzf03.525.9-34.0 pgMean Corpuscular HGB Conc 30.529.9-35.2 g/dLRed Cell Distribution Width19.911.0-15.0 %Platelet Jdwxl260 150-450 10 3/uLMean Platelet Mtgzuk71.89.5-13.5 fLNeutrophils Percent Auto78.5 43.0-75.0 %Lymphocytes Percent Auto8.120.5-60.0 %Monocytes Percent Auto10.51.7- 12.0 %Eosinophils Percent Auto1.90.9-7.0 %Basophils Percent Auto0.70.2-2.0 % Immature Granulocytes Pct Auto0.30.0-0.5 %Neutrophils Absolute Auto7.01.4-6.5 10 3/uLLymphocytes Absolute Auto0.71.2-3.8 10 3/uLMonocytes Absolute Auto0.90.3- 0.8 10 3/uLEosinophils Absolute Auto0.20.0-0.7 10 3/uLBasophils Absolute Auto0.1 0.0-0.1 10 3/uLImmature Granulocytes Abs Auto0.030.00-0.03 10 3/uLPerforming Lab:see noteML - [facility] LBALBUMIN Reviewed date:07/18/2025 12:42:27 PM Interpretation: Performing Lab: Notes/Report: [facility] ,Albumin Level3.53.4-5.0 g/dLPerforming Lab:see noteML - [facility] LBGLYCOHEMOGLOBIN A1C Reviewed date:07/18/2025 12:42:27 PM Interpretation: Performing Lab: Notes/Report: [facility] ,Glycohemoglobin A1C8.04.5-6.2 % ADA RECOMMENDED LIMIT 4.0 - 6.0 ADA THERAPEUTIC TARGET < 7.0 ACTION SUGGESTED > 7.0 Estimated Average Yljcswt673Dbzqpadygg Lab:see noteML - [facility] LB HEMOGLOBIN Reviewed date:07/18/2025 12:42:27 PM Interpretation: Performing Lab: Notes/Report: [facility] ,Ulvragyuey60.314.0-18.0 g/dLPerforming Lab:see noteML - [facility] LBLIPID PROFILE Reviewed date:07/18/2025 12:42:27 PM Interpretation: Performing Lab: Notes/Report: [facility] ,Urpkkiwyybvwv47<=150 mg/cNJuahzvgvxeg610<=200 mg/dLHDL Ognsnjkdgjp1064-41 mg/dL > or =60 mg/dl - LOW CARDIOVASCULAR RISK <40 mg/dl - HIGH CARDIOVASCULAR RISK LDL Cholesterol Jdeazcquof059.0 <100 mg/dl OPTIMAL 100-129 mg/dl NEAR OR ABOVE OPTIMAL 130-159 mg/dl BORDERLINE HIGH 160-189 mg/dl HIGH >190 mg/dl VERY HIGH VLDL XNHJXWIWLYV04.6Chol HDL Ratio2.4 3.3 - 4.4 LOW RISK 4.4 - 7.1 AVERAGE RISK 7.1 - 11.0 MODERATE RISK >11.0 HIGH RISK Performing Lab:see noteML - [facility] LBLIVER PROFILE Reviewed date:07/18/2025 12:42:27 PM Interpretation: Performing Lab: Notes/Report: [facility] ,Bilirubin Total0.50.2-1.0 mg/dLBilirubin Direct0.10.0-0.2 mg/dLAspartate Amino Sxmswvaltkn9902-04 U/LAlanine Yhwgpvjilujfninc6218-69 U/LAlkaline Dxersskjezx61 46-116 U/LTotal Protein7.86.4-8.2 g/dLAlbumin Level3.43.4-5.0 g/dLGlobulin4.4 Albumin Globulin Ratio0.8Performing Lab:see noteML - [facility] LB MAGNESIUM Reviewed date:07/18/2025 12:42:27 PM Interpretation: Performing Lab: Notes/Report: [facility] ,Magnesium1.91.8-2.4 mg/dLPerforming Lab:see noteML - [facility] LB PHOSPHORUS Reviewed date:07/18/2025 12:42:27 PM Interpretation: Performing Lab: Notes/Report: [facility] ,Phosphorus3.62.6-4.7 mg/dLPerforming Lab:see noteML - [facility] LB PROF CHEM 8 (BAS METB) Reviewed date:07/18/2025 12:42:27 PM Interpretation: Performing Lab: Notes/Report: [facility] ,Leyjib033248-681 mmol/LPotassium4.53.5-5.1 mmol/AWyjrpljb77772-061 mmol/LCarbon Nzxywpd64.721.0-32.0 mmol/LAnion Gap15.7Btrytnw89255-770 mg/dLBlood Urea Dwsqguee25.07.0-18.0 mg/dLCreatinine1.670.70-1.30 mg/dLEstimated GFR ( Scsydnx38>=60 mL/min/1.73m 2Estimated GFR (Non- Ame39>=60 mL/min/1.73m 2 BUN Creatinine Ratio23.6Odukwha5.38.5-10.1 mg/dLPerforming Lab:see noteML - [facility] LBURINE T PROTEIN CREAT RATIO Reviewed date:07/18/2025 12:42:27 PM Interpretation: Performing Lab: Notes/Report: [facility] ,Total Protein Urine Gbxusy02.0<=11.9 mg/dLCreatinine Urine Apmpmq47.5420.00- 300.00 mg/dLProtein Creatinine Ratio Urine0.19Performing Lab:see noteML - [facility] LBTroponin I High Sensitivity Reviewed date:05/09/2025 09:23:04 PM Interpretation: Performing Lab: Notes/Report: [facility] ,Troponin I High Ldtohbagykt61.94.0-76.1 pg/mL REFERENCE LIMIT (URL) OF TROPONIN, DEFINED THE 99TH PERCENTILE OF cTnI DISTRIBUTION IN A REFERENCE POPULATION, HAS BEEN CONFIRMED THE DECISION THRESHOLD FOR AR DIAGNOSIS. 99TH PERCENTILE = 76.2 PG/ML NOTE: HIGH-SENSITIVITY TROPONIN ASSAY IS NOT INTENDED TO BE USED IN ISOLATION BUT SHOULD BE INTERPRETED IN CONJUNCTION WITH OTHER DIAGNOSTIC AND CLINICAL INFORMATION. CUT-OFF POINTS HAVE BEEN ESTABLISHED BASED ON THE FOURTH UNIVERSAL DEFINITION OF MYOCARDIAL INFARCTION. THE UPPER Performing Lab:see noteML - [facility] LBBKV Quant PCR Reviewed date:07/18/2025 08:32:26 PM Interpretation: Performing Lab: Notes/Report: [facility] ,BKV DNA, Quant PCR, PlasmaNegativeNegative IU/mL No BK DNA detected. The linear range of the assay is 22 - 100,000,000 IU/mL. Performed at: [address] [id number] Tree Planter: Asael Pressley PhD, Phone: [phone] log10 BKV DNA,PlasmaTNP.Performing Lab:see noteLC - [facility] LBUA RANDOM W or MICROSCOPIC Reviewed date:09/04/2025 05:52:50 PM Interpretation: Performing Lab: Notes/Report: [facility] ,Color UrineLT. YELLOWYELLOWClarity UrineCLEARCLEARSpecific [place] Urine1.010 1.005-1.025pH Urine6.05.0-9.0Protein UrineNEGATIVENEG/TRACE mg/dLGlucose Urine UA>=1000NEGATIVE mg/dLBilirubin UrineNEGATIVENEGATIVEKetones UrineNEGATIVE NEGATIVE mg/dLBlood UrineNEGATIVENEGATIVENitrite UrineNEGATIVENEGATIVE Urobilinogen Urine0.20.2-1.0 EU/dLLeukocyte Esterase UrineNEGATIVENEGATIVEWBC Urine0-2NONE SEEN #/HPFRBC Urine0-20-2 #/HPFBacteria UrineNONE SEENNONE SEEN #/HPFMucus UrineNONE SEENNONE SEENSquamous Epithelial Cell UrineRARENONE/RARE #/LPFCrystals Seen?None SeenNone Seen #/HPFCast Seen?SEENNONE SEEN #/LPFHyaline Casts UrineRAREYeast UrineSEENNONE SEENUrine Culture IndicatedALREADY ORDERED Performing Lab:see noteML - [facility] LBUrine Culture - [facility] [place] date:09/06/2025 04:09:47 PM Interpretation: Performing Lab: Notes/Report: [facility] ,Urine Culture - FRMCSee Below For Report Urine Culture - [facility] <9,000 colonies/ml mixed Urine Culture - FRMCbacterial skin contaminants Urine Culture - [facility] <9,000 colonies/ml mixed Urine Culture - [facility]2 Days Urine Culture - [facility] <9,000 colonies/ml mixed Urine Culture - [facility] Urine Culture - [facility] <9,000 colonies/ml mixed [facility] <9,000 colonies/ml mixed Urine Culture - [id number] [place] [address] Urine Culture - [facility] <9,000 colonies/ml mixed Performing Lab:see noteML - [facility] LBCBC no Diff (Hemogram) Reviewed date:05/09/2025 09:23:04 PM Interpretation: Performing Lab: Notes/Report: [facility] ,White Blood Count10.04.0-11.0 10 3/uLRed Blood Count4.134.70-6.10 10 6/uL Wxknzgofzg68.714.0-18.0 g/gFQhcizopjha43.042.0-54.0 %Mean Corpuscular Shoglr51.3 80.0-94.0 fLMean Corpuscular Wvagjnioua63.925.9-34.0 pgMean Corpuscular HGB Conc 31.529.9-35.2 g/dLRed Cell Distribution Width19.011.0-15.0 %Platelet Zrwuq529 150-450 10 3/uLMean Platelet Dyzntj81.99.5-13.5 fLPerforming Lab:see noteML - [facility] LBPROF CHEM 8 (BAS METB) Reviewed date:05/09/2025 09:23:04 PM Interpretation: Performing Lab: Notes/Report: [facility] ,Esjspk324913-141 mmol/LPotassium4.03.5-5.1 mmol/HKbziavmb32598-519 mmol/LCarbon Lyukhxl12.521.0-32.0 mmol/LAnion Gap14.3Ryzdwna45396-956 mg/dLBlood Urea Jvqzhhtr67.07.0-18.0 mg/dLCreatinine1.770.70-1.30 mg/dLEstimated GFR ( Lvhzelz29>=60 mL/min/1.73m 2Estimated GFR (Non- Ame37>=60 mL/min/1.73m 2 BUN Creatinine Ratio18.3Pwlvrzn3.38.5-10.1 mg/dLPerforming Lab:see noteML - [facility] LBMAGNESIUM Reviewed date:05/09/2025 09:23:04 PM Interpretation: Performing Lab: Notes/Report: [facility] ,Magnesium2.21.8-2.4 mg/dLPerforming Lab:see note - [facility] LB PROF CHEM 8 (BAS METB) Reviewed date:04/15/2025 04:42:40 PM Interpretation: Performing Lab: Notes/Report: [facility] ,Xiwmoj240137-884 mmol/LPotassium4.53.5-5.1 mmol/LRipzcyai27352-279 mmol/LCarbon Fwlqpip85.821.0-32.0 mmol/LAnion Gap17.4Ytxajvd80861-778 mg/dLBlood Urea Xxsflvof01.07.0-18.0 mg/dLCreatinine1.800.70-1.30 mg/dLEstimated GFR ( Tigkgjf73>=60 mL/min/1.73m 2Estimated GFR (Non- Ame36>=60 mL/min/1.73m 2 BUN Creatinine Ratio17.6Giqjtlo6.98.5-10.1 mg/dLPerforming Lab:see note - [facility] LBECG 12 lead Reviewed date:03/08/2025 08:58:48 PM Interpretation: Performing Lab: Notes/Report: Source Facility: [facility]-[address] [place] [address] [place] [address] Electrocardiograph Report Signed Patient: NADIR HEREDIA MR#: [id number] : 1940 Acct:[id number] Age/Sex: 85 / M ADM Date: 03/08/25 Loc: ER Attending Dr: Ordering Physician: Flaco Haynes M.D. 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 Measurements Intervals [place] Rate: 70 P: -[id number] MS: -[id number] QRS: 48 QRSD: 100 T: 26 QT: 414 QTc: 435 Interpretive Statements 93675 Atrial fibrillation with aberrant conduction, or ventricular premature complexes 3113 Cannot rule out anterior myocardial infarction, probably old [address] depression, probably digitalis effect 9150 abnormal ECG Compared to ECG 02/14/2025 10:08:55 Ventricular premature complex(es) now present Aberrant conduction of supraventricular beat(s) now present Electronically Signed On 03-08-2025 20:43:48 EDT by CLARIBEL PUGA M.D. Dictated By: CLARIBEL PUGA Signed By: 03/08/252042 DD/ 4 TD/TT: Serging Machine Operator Automatic:PROF TARA Faust ([facility]) Reviewed date:02/18/2025 03:43:48 PM Interpretation: Performing Lab: Notes/Report: [facility] ,Bpkslt634288-176 mmol/LPotassium4.43.5-5.1 mmol/RBrzmwwyf06553-788 mmol/LCarbon Pgfnrbp50.721.0-32.0 mmol/LAnion Gap12.8Kyqazbe68002-168 mg/dLBlood Urea Blcagbtt78.07.0-18.0 mg/dLCreatinine1.710.70-1.30 mg/dLEstimated GFR ( Mswgrpe55>=60 mL/min/1.73m 2Estimated GFR (Non- Ame38>=60 mL/min/1.73m 2 BUN Creatinine Ratio21.9Msnlwni3.08.5-10.1 mg/dLPerforming Lab:see noteML - [facility] LBCA echo doppler complete Reviewed date:02/15/2025 05:24:30 PM Interpretation: Performing Lab: Notes/Report: Source Facility: [facility]-[address] [place] [address] Cardiology Report Signed Patient: NADIR HEREDIA MR#: [id number] : 1940 Acct:[id number] Age/Sex: 85 / M ADM Date: 02/14/25 Loc: MS 203-[address]: Van Sung M.D. Ordering Physician: Van Sung M.D. Date of Service: 02/15/25 Procedure(s): CA echo doppler complete Accession Number(s): [id number] cc: Van Sung M.D. Patient Name: NADIR HEREDIA MR#: [id number] : 1940 Exam Date: 02/15/2025 Ordering Doctor: [...] M.D. Signed By: 02/15/251631 DD/ 30 TD/TT: Serging Machine Operator Automatic:PROF PACHECO 8 (BAS MET) Reviewed date:02/15/2025 05:24:30 PM Interpretation: Performing Lab: Notes/Report: [facility] ,Qqauus334343-392 mmol/LPotassium3.83.5-5.1 mmol/WRyjiwhmt16248-682 mmol/LCarbon Pqboybx43.821.0-32.0 mmol/LAnion Gap15.7Srwrokq67769-404 mg/dLBlood Urea Baonyypu45.07.0-18.0 mg/dLCreatinine1.640.70-1.30 mg/dLEstimated GFR ( Huzatbo71>=60 mL/min/1.73m 2Estimated GFR (Non- Ame40>=60 mL/min/1.73m 2 BUN Creatinine Ratio20.0Fgxwzoh2.98.5-10.1 mg/dLPerforming Lab:see noteML - [facility] LBCBC AUTO DIFF Reviewed date:02/15/2025 05:24:30 PM Interpretation: Performing Lab: Notes/Report: [facility] ,White Blood Count5.44.0-11.0 10 3/uLRed Blood Count3.544.70-6.10 10 6/uL Lgoceqelzt11.314.0-18.0 g/hIUkymjkthze51.342.0-54.0 %Mean Corpuscular Penduo73.4 80.0-94.0 fLMean Corpuscular Sjxourdlgi79.125.9-34.0 pgMean Corpuscular HGB Conc 32.929.9-35.2 g/dLRed Cell Distribution Width16.511.0-15.0 %Platelet Lssta842 150-450 10 3/uLMean Platelet Abxrwj46.89.5-13.5 fLNeutrophils Percent Auto65.9 43.0-75.0 %Lymphocytes Percent Auto15.720.5-60.0 %Monocytes Percent Auto13.51.7- 12.0 %Eosinophils Percent Auto4.10.9-7.0 %Basophils Percent Auto0.60.2-2.0 % Immature Granulocytes Pct Auto0.20.0-0.5 %Neutrophils Absolute Auto3.51.4-6.5 10 3/uLLymphocytes Absolute Auto0.81.2-3.8 10 3/uLMonocytes Absolute Auto0.70.3- 0.8 10 3/uLEosinophils Absolute Auto0.20.0-0.7 10 3/uLBasophils Absolute Auto0.0 0.0-0.1 10 3/uLImmature Granulocytes Abs Auto0.010.00-0.03 10 3/uLPerforming Lab:see noteML - [facility] LBMR head/brain wo con Reviewed date:02/14/2025 07:52:09 PM Interpretation: Performing Lab: Notes/Report: Source Facility: [place] [address] Magnetic Resonance Report Signed Patient: NADIR HEREDIA MR#: [id number] : 1940 Acct:[id number] Age/Sex: 85 / M ADM Date: 02/14/25 Loc: MRI Attending Dr: Van Sung M.D. Ordering Physician: Van Sung M.D. Date of Service: 02/14/25 Procedure(s): MR head/brain wo con Accession Number(s): [id number] cc: Van Sung M.D. [place] [address] Patient Name: NADIR HEREDIA MRN: [id number] date: 1940 Sex: M Assigned Patient Location: MRI Current Patient Location: MRI Accession/Order Number: [id number] Exam Date: 02/14/2025 08:47 Report Date: 02/14/2025 [...] Radha Wright M.D.02/14/2025 9:20 AM Dictation Location: [place] [address] Electronically authenticated by: [id number] Y Date: 02/14/2025 09:20 Dictated By: Radha Wright M.D. Signed By: 02/14/2522 DD/ 9 TD/TT: Serging Machine Operator Automatic:Troponin I High Sensitivity Reviewed date:02/14/2025 07:52:08 PM Interpretation: Performing Lab: Notes/Report: [facility] ,Troponin I High Rqmehyslkas45.24.0-76.1 pg/mL CUT-OFF POINTS HAVE BEEN ESTABLISHED BASED [...] CLINICAL INFORMATION. Performing Lab:see noteML - [facility] LBUA (CLEAN or CATCH) FILM LABORATORY TECHNICIAN or MICRO IF IND. Reviewed date:02/14/2025 07:52:08 PM Interpretation: Performing Lab: Notes/Report: [facility] ,Color UrineLT. YELLOWYELLOWClarity UrineCLEARCLEARSpecific [place] Urine1.010 1.005-1.025pH Urine7.05.0-9.0Protein UrineNEGATIVENEG/TRACE mg/dLGlucose Urine UA>=1000NEGATIVE mg/dLBilirubin UrineNEGATIVENEGATIVEKetones UrineNEGATIVE NEGATIVE mg/dLBlood UrineNEGATIVENEGATIVENitrite UrineNEGATIVENEGATIVE Urobilinogen Urine0.20.2-1.0 EU/dLLeukocyte Esterase UrineNEGATIVENEGATIVEUrine Microscopic IndicatedNOPerforming Lab:see noteML - [facility] LBPROF 14(COMP METB) Reviewed date:02/14/2025 07:52:08 PM Interpretation: Performing Lab: Notes/Report: [facility] ,Rcqprm680623-465 mmol/LPotassium4.33.5-5.1 mmol/VHxjeapvp53246-563 mmol/LCarbon Ihzsspj43.021.0-32.0 mmol/LAnion Gap14.0Jsilltj35735-014 mg/dLBlood Urea Xcqjieiw92.07.0-18.0 mg/dLCreatinine1.770.70-1.30 mg/dLEstimated GFR ( Eorwxcv07>=60 mL/min/1.73m 2Estimated GFR (Non- Ame37>=60 mL/min/1.73m 2 BUN Creatinine Ratio17.4Ajyewry4.08.5-10.1 mg/dLBilirubin Total0.40.2-1.0 mg/dL Aspartate Amino Uhzumxccvvp8120-12 U/LAlanine Buedonowwweuawin4000-83 U/L Alkaline Uutytotwtky3636-042 U/LTotal Protein6.96.4-8.2 g/dLAlbumin Level3.43.4- 5.0 g/dLGlobulin3.5Albumin Globulin Ratio1.0Performing Lab:see noteML - [facility] LBMAGNESIUM Reviewed date:02/14/2025 07:52:08 PM Interpretation: Performing Lab: Notes/Report: [facility] ,Magnesium2.01.8-2.4 mg/dLPerforming Lab:see noteML - [facility] LB GLYCOHEMOGLOBIN A1C Reviewed date:02/14/2025 07:52:08 PM Interpretation: Performing Lab: Notes/Report: [facility] ,Glycohemoglobin A1C11.14.5-6.2 % ADA RECOMMENDED LIMIT 4.0 - 6.0 ADA THERAPEUTIC TARGET < 7.0 ACTION SUGGESTED > 7.0 Estimated Average Noqmyib782Ywijujjpkl Lab:see noteML - [facility] LB DIRECT LDL Reviewed date:02/14/2025 07:52:08 PM Interpretation: Performing Lab: Notes/Report: [facility] ,LDL Cholesterol Gteuqz605 <100 mg/dl OPTIMAL 100-129 mg/dl NEAR OR ABOVE OPTIMAL 130-159 mg/dl BORDERLINE HIGH 160-189 mg/dl HIGH >190 mg/dl VERY HIGH Performing Lab:see note - [facility] LBBNP Reviewed date:02/14/2025 07:52:08 PM Interpretation: Performing Lab: Notes/Report: [facility] ,NT Pro B Type Natriuretic Wuiq5973.0<=1800.0 pg/mLPerforming Lab:see note - [facility] LBLower Respiratory Culture Reviewed date:01/25/2025 07:33:24 PM Interpretation: Performing Lab: Notes/Report: [facility] ,Lower Respiratory CultureSee Below For Report Lower Respiratory Culture WILL FOLLOW Lower Respiratory CultureRoutine respiratory shreya Lower Respiratory Culture WILL FOLLOW Lower Respiratory CulturePerformed at: - [facility] [place] Lower Respiratory Culture WILL FOLLOW Lower Respiratory [address] [place], [place] [id number] Lower Respiratory Culture WILL FOLLOW Lower Respiratory CultureLab Director: Asael Pressley PhD, Phone: [phone] Lower Respiratory Culture WILL FOLLOW Performing Lab:see note LC - [facility] LB SEE REPORT - Floor Inspector Id information not found for OBX-specific editor producer legend Gram Stain Evaluation Reviewed date:01/25/2025 07:33:24 [...] ,Result 4See Below For Report Result 4 PRESCHOOL PARAPROFESSIONAL Performing Lab:see note - [facility] LBResult 3 Reviewed date:01/25/2025 07:33:24 PM Interpretation: Performing Lab: Notes/Report: [facility] ,Result 3See Below For Report Result 3 *ABNORMAL* Result 3Rare gram negative rods. Result 3 *ABNORMAL* Performing Lab:see note - [facility] LBResult 2 Reviewed date:01/25/2025 07:33:24 PM Interpretation: Performing Lab: Notes/Report: [facility] ,Result 2See Below For Report Result 2 Rare gram positive rods Performing Lab:see note - [facility] LBResult 1 Reviewed date:01/25/2025 07:33:24 PM Interpretation: Performing Lab: Notes/Report: [facility] ,Result 1See Below For Report Result 1 Few gram positive cocci Performing Lab:see note - [facility] LBEpithelial Cells Reviewed date:01/25/2025 07:33:24 PM Interpretation: Performing Lab: Notes/Report: [facility] ,Epithelial CellsSee Below For Report Few Epithelial Cells Performing Lab:see note - [facility] LBWhite Blood Cells Reviewed date:01/25/2025 07:33:24 PM Interpretation: Performing Lab: Notes/Report: [facility] ,White Blood CellsSee Below For ReportWhite Blood CellsWhite Blood CellsNone seenWhite Blood CellsPerforming Lab:see note - [facility] LBTSH Reviewed date:01/18/2025 09:02:22 PM Interpretation: Performing Lab: Notes/Report: [facility] ,Thyroid Stimulating Hormone1.4720.358-3.740 uIU/mLPerforming Lab:see noteML - [facility] LBT4 Reviewed date:01/18/2025 09:02:22 PM Interpretation: Performing Lab: Notes/Report: [facility] ,T4 Thyroxine7.004.50-12.10 ug/dLPerforming Lab:see note - [facility] LBPROF 14(COMP METB) Reviewed date:01/18/2025 09:02:22 PM Interpretation: Performing Lab: Notes/Report: [facility] ,Nseeuu478787-574 mmol/LPotassium4.53.5-5.1 mmol/WCgpmlypr45942-436 mmol/LCarbon Cwecivm07.521.0-32.0 mmol/LAnion Gap14.4Qhyngyt62949-227 mg/dLBlood Urea Wsezebob74.07.0-18.0 mg/dLCreatinine1.600.70-1.30 mg/dLEstimated GFR ( Tlsktkn46>=60 mL/min/1.73m 2Estimated GFR (Non- Ame41>=60 mL/min/1.73m 2 BUN Creatinine Ratio18.7Goiahpi2.98.5-10.1 mg/dLBilirubin Total0.30.2-1.0 mg/dL Aspartate Amino Xarcatrzung1498-39 U/LAlanine Sdocpcdbmmgihhmk5558-93 U/L Alkaline Fiwzhdctmaz3134-735 U/LTotal Protein6.76.4-8.2 g/dLAlbumin Level3.33.4- 5.0 g/dLGlobulin3.4Albumin Globulin Ratio1.0Performing Lab:see noteML - [facility] LBFREE T3 Reviewed date:01/18/2025 09:02:22 PM Interpretation: Performing Lab: Notes/Report: [facility] ,Free T32.152.18-3.98 pg/mLPerforming Lab:see noteML - [facility] LB CBC AUTO DIFF Reviewed date:01/18/2025 09:02:22 PM Interpretation: Performing Lab: Notes/Report: [facility] ,White Blood Count9.04.0-11.0 10 3/uLRed Blood Count3.864.70-6.10 10 6/uL Ngszgtfncy49.614.0-18.0 g/mLErnbfwgbys90.442.0-54.0 %Mean Corpuscular Exniii99.9 80.0-94.0 fLMean Corpuscular Yzjmtjizwk78.125.9-34.0 pgMean Corpuscular HGB Conc 31.029.9-35.2 g/dLRed Cell Distribution Width16.011.0-15.0 %Platelet Nyale996 150-450 10 3/uLMean Platelet Pvtvrk49.59.5-13.5 fLNeutrophils Percent Auto79.2 43.0-75.0 %Lymphocytes Percent Auto9.020.5-60.0 %Monocytes Percent Auto8.11.7- 12.0 %Eosinophils Percent Auto2.80.9-7.0 %Basophils Percent Auto0.60.2-2.0 % Immature Granulocytes Pct Auto0.30.0-0.5 %Neutrophils Absolute Auto7.11.4-6.5 10 3/uLLymphocytes Absolute Auto0.81.2-3.8 10 3/uLMonocytes Absolute Auto0.70.3- 0.8 10 3/uLEosinophils Absolute Auto0.30.0-0.7 10 3/uLBasophils Absolute Auto0.1 0.0-0.1 10 3/uLImmature Granulocytes Abs Auto0.030.00-0.03 10 3/uLPerforming Lab:see noteML - [facility] LBVITAMIN D 25 [place] Reviewed date:12/24/2024 11:26:08 AM Interpretation: Performing Lab: Notes/Report: [facility] ,Vitamin D19.7 <20 ng/mL Vit D deficient 20-<30 ng/mL Vit D insufficient 30-100 ng/mL Vit D sufficient >100 ng/mL Potential Toxicity Performing Lab:see noteML - [facility] LBPROF CHEM 8 (BAS METB) Reviewed date:12/24/2024 11:26:08 AM Interpretation: Performing Lab: Notes/Report: [facility] ,Dusika714553-457 mmol/LPotassium4.63.5-5.1 mmol/QRsyksxmo95320-080 mmol/LCarbon Itzakts19.121.0-32.0 mmol/LAnion Gap13.9Tvrfkmj13303-765 mg/dLBlood Urea Mhqeuead96.07.0-18.0 mg/dLCreatinine1.570.70-1.30 mg/dLEstimated GFR ( Tawdfbw68>=60 mL/min/1.73m 2Estimated GFR (Non- Ame42>=60 mL/min/1.73m 2 BUN Creatinine Ratio15.9Mctobvi4.78.5-10.1 mg/dLPerforming Lab:see noteML - [facility] LBPHOSPHORUS Reviewed date:12/24/2024 11:26:08 AM Interpretation: Performing Lab: Notes/Report: [facility] ,Phosphorus3.72.6-4.7 mg/dLPerforming Lab:see note - [facility] LB MAGNESIUM Reviewed date:12/24/2024 11:26:08 AM Interpretation: Performing Lab: Notes/Report: [facility] ,Magnesium2.21.8-2.4 mg/dLPerforming Lab:see noteML - [facility] LB HEMOGLOBIN Reviewed date:12/24/2024 11:26:08 AM Interpretation: Performing Lab: Notes/Report: [facility] ,Zntzcngttr64.114.0-18.0 g/dLPerforming Lab:see note - [facility] LBALBUMIN Reviewed date:12/24/2024 11:26:08 AM Interpretation: Performing Lab: Notes/Report: [facility] ,Albumin Level3.33.4-5.0 g/dLPerforming Lab:see note - [facility] LBPROF CHEM 8 (BAS METB) Reviewed date:11/11/2024 08:52:42 PM Interpretation: Performing Lab: Notes/Report: [facility] ,Loroeb343747-587 mmol/LPotassium5.03.5-5.1 mmol/VJibanfqk97038-913 mmol/LCarbon Mryuquo17.821.0-32.0 mmol/LAnion Gap15.5Nwudycj70978-699 mg/dLBlood Urea Naatpwmf39.07.0-18.0 mg/dLCreatinine1.650.70-1.30 mg/dLEstimated GFR ( Hgdrpne99>=60 mL/min/1.73m 2Estimated GFR (Non- Ame40>=60 mL/min/1.73m 2 BUN Creatinine Ratio12.0Pwkywtx8.78.5-10.1 mg/dLPerforming Lab:see note - [facility] LBPROF CHEM 8 (BAS METB) Reviewed date:10/30/2024 02:21:51 PM Interpretation: Performing Lab: Notes/Report: [facility] ,Yapjyd163909-117 mmol/LPotassium4.33.5-5.1 mmol/LHxfaurlw81030-846 mmol/LCarbon Uyvcbjk13.321.0-32.0 mmol/LAnion Gap16.6Xthczij58579-685 mg/dLBlood Urea Rnyuyfsf98.07.0-18.0 mg/dLCreatinine1.870.70-1.30 mg/dLEstimated GFR ( Yuzvdjc11>=60 mL/min/1.73m 2Estimated GFR (Non- Ame34>=60 mL/min/1.73m 2 BUN Creatinine Ratio19.0Txlcnyp2.98.5-10.1 mg/dLPerforming Lab:see noteML - [facility] LBCBC AUTO DIFF Reviewed date:10/30/2024 02:21:51 PM Interpretation: Performing Lab: Notes/Report: [facility] ,White Blood Count14.04.0-11.0 10 3/uLRed Blood Count3.404.70-6.10 10 6/uL Gvrujytmob67.614.0-18.0 g/sFUqxlxcixbm11.342.0-54.0 %Mean Corpuscular Volume 103.880.0-94.0 fLMean Corpuscular Nbsetyyzez21.125.9-34.0 pgMean Corpuscular HGB Conc32.929.9-35.2 g/dLRed Cell Distribution Width14.611.0-15.0 %Platelet Count 072688-358 10 3/uLMean Platelet Frzdyn12.19.5-13.5 fLNeutrophils Percent Auto 79.143.0-75.0 %Lymphocytes Percent Auto9.420.5-60.0 %Monocytes Percent Auto9.9 1.7-12.0 %Eosinophils Percent Auto0.90.9-7.0 %Basophils Percent Auto0.20.2-2.0 % Immature Granulocytes Pct Auto0.50.0-0.5 %Neutrophils Absolute Auto11.11.4-6.5 10 3/uLLymphocytes Absolute Auto1.31.2-3.8 10 3/uLMonocytes Absolute Auto1.40.3- 0.8 10 3/uLEosinophils Absolute Auto0.10.0-0.7 10 3/uLBasophils Absolute Auto0.0 0.0-0.1 10 3/uLImmature Granulocytes Abs Auto0.070.00-0.03 10 3/uLPerforming Lab:see noteML - [facility] LBType and Screen Reviewed date:10/29/2024 08:20:36 PM Interpretation: Performing Lab: Notes/Report: [facility] ,Blood TypeA PositiveAntibody ScreenNEGATIVECA echo doppler complete Reviewed date:10/18/2024 07:39:53 PM Interpretation: Performing Lab: Notes/Report: Source Facility: [facility]-[address] [place] [address] Cardiology Report Signed Patient: NADIR HEREDIA MR#: [id number] : 1940 Acct:[id number] Age/Sex: 84 / M ADM Date: 10/18/24 Loc: CARD Attending Dr: CLARIBEL PUGA Ordering Physician: CLARIBEL PUGA Date of Service: 10/18/24 Procedure(s): CA echo doppler complete Accession Number(s): [id number] cc: Van Sung M.D.; CLARIBEL PUGA Patient Name: NADIR HEREDIA MR#: [id number] : 1940 Exam Date: 10/18/2024 Ordering Doctor: [...] Signed By: 10/18/24 1426 DD/ 1425 TD/TT: Serging Machine Operator Automatic:JESUS FRANCISCO ([id number]) - IN OFFICE Reviewed date:01/24/2025 06:29:49 PM Interpretation: Performing Lab: Notes/Report: COLORyellowCLARITYclearGLUCOSELARGEBILIRUBINnegKETONEnegSPECIFIC GRAVITY1.010 HFYZAFURTEYE7QPKXPWPXVCQISXXAQBTKKTXSrxpFYVCKZChmxLSCTZCOGW ESTERASEnegVITAMIN D 25 [place] Reviewed date:07/18/2025 12:42:27 PM Interpretation: Performing Lab: Notes/Report: [facility] ,Vitamin D34.1 <20 ng/mL Vit D deficient 20-<30 ng/mL Vit D insufficient 30-100 ng/mL Vit D sufficient >100 ng/mL Potential Toxicity Performing Lab:see note - [facility] LBPROF CHEM 8 (BAS METB) Reviewed date:05/28/2025 06:07:27 PM Interpretation: Performing Lab: Notes/Report: [facility] ,Cnhrvk461097-557 mmol/LPotassium4.83.5-5.1 mmol/WIsprytpa58903-096 mmol/LCarbon Teplozm04.921.0-32.0 mmol/LAnion Gap18.0Jxmgyzs98008-406 mg/dLBlood Urea Pdosvrri46.07.0-18.0 mg/dLCreatinine1.820.70-1.30 mg/dLEstimated GFR ( Fhskblp73>=60 mL/min/1.73m 2Estimated GFR (Non- Ame35>=60 mL/min/1.73m 2 BUN Creatinine Ratio17.3Wcouyfx8.18.5-10.1 mg/dLPerforming Lab:see noteML - [facility] LB Reason For Referral No Information Medications [...] BY MOUTH 3 TIMES DAILY; Duration: 90Active Lasix 40 MG1 tablet Orally bid; Duration: 90 daysActiveVitamin D 25 MCG (1000 UT)1 tablet Orally Once a day; Duration: 90 days07/30/2025tiveAlbuterol Sulfate (2.5 MG/3ML) 0.083%3 mL as needed Inhalation every 6 hrsActivemetFORMIN HCl 1000 MG1 tablet with a meal Orally twice a day; Duration: 90 daysActive Xarelto 15 MG1 tablet with food Orally Once a day; Duration: 30 daysActive Aldactone 25 MG1 tablet Orally Once a day; Duration: 30 days05/28/2023ctive Metoclopramide HCl 5 MGTAKE 1 TABLET BY MOUTH AT BEDTIME; Duration: 90Active Cetirizine HCl 10 MG1 tablet Orally Twice a day; Duration: 30 daysActive cloNIDine HCl 0.1 MG2 tablets Orally bid; Duration: 90 daysActiveBreo Ellipta 100-25 MCG/ACT1 puff Inhalation Once a day; Duration: 90 days5Active Symbicort 80-4.5 MCG/ACT2 puffs Inhalation Once a dayActiveKlor-Con M20 20 MEQ TAKE 1 TABLET BY MOUTH TWICE A DAY; Duration: 90ActiveTamsulosin HCl 0.4 MGTAKE 1 CAPSULE BY MOUTH DAILY; Duration: 90ActiveEzetimibe 10 MGTAKE 1 TABLET BY MOUTH ONCE DAILY; Duration: 90ActiveFerrous Sulfate 325 (65 Fe) MG1 tablet Orally Once a dayActiveFreeStyle Ron 2 Sensor -used to monitor blood sugar dx E11.9; Duration: 14 days5ActiveGlimepiride 4 MGTAKE 2 TABLETS BY MOUTH EVERY DAY; Duration: 90 daysActiveCyanocobalamin 1000 MCG/ML1 mL Injection once monthly; Duration: 30 days5ActiveDidanie Shoe -- DailyActive Dicyclomine HCl 10 MG2 capsules Orally Three times a day; Duration: 90 days ActiveEscitalopram Oxalate 5 MGTAKE 1 TABLET BY MOUTH EVERY DAY FOR 30 DAYS; Duration: 90ActiveJanuvia 100 MG1 tablet Orally Once a day; Duration: 90 days 5ActiveJardiance 25 MG1 tablet Orally Once a day; Duration: 90 days ActiveSpiriva Respimat 1.25 MCG/ACT 2 puffs Inhalation Once a day; Duration: 90 days 1 inhaler each Active Immunizations Vaccine Route Administration Date Status Comme nts Flu, Fluad () (90052) 65 yrs+, single-dose syringe IM Intramuscular 08/20/2023 Administered Flu, Fluad (19561) 65 yrs and older, single-dose syringe (6478-1124)IM Npgfowjlzvyxg01/09/2024AdministeredFlu, Fluad (77002) 65 yrs and older, single- dose syringe (5029-5657)IM Dfwtioezuhwse29/15/2025dministered Social History Tobacco Use: Social History Observation Description Date Details (start date - stop date) Former Smoker NA - NA Tobacco Use/Smoking Question Answer Notes Patient is a former smoker Alcohol Screen (Audit-C) Question Answer Notes Did you have a drink containing alcohol in the p ast year? No Vifazr6EoebhrsjmmnyqzXtvrpezvYUWEO-T (Standard) Question Answer Notes Did you have a drink containing alcohol in the p ast year? 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)ActiveconfirmedProblemOverweight (891453000)Overweight (E66.3)Active confirmedProblemGeneralized anxiety disorder (39591849)Generalized anxiety disorder (F41.1)ActiveconfirmedProblemAtherosclerotic heart disease of [place] coronary artery without angina pectoris (599879425736592)Atherosclerotic heart disease of [place] coronary artery without angina pectoris (I25.10)Active confirmedProblemAortic valve disorder (6950006)Nonrheumatic aortic (valve) stenosis (I35.0)ActiveconfirmedProblemAortic valve disorder (0292758)Other nonrheumatic aortic valve disorders (I35.8)ActiveconfirmedProblemAcute diastolic heart failure (742876897)Acute diastolic (congestive) heart failure (I50.31) ActiveconfirmedProblemAcute combined systolic and diastolic heart failure (459502814098898)Acute combined systolic (congestive) and diastolic (congestive) heart failure (I50.41)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 (158680776362105)Chronic combined systolic (congestive) and diastolic (congestive) heart failure (I50.42)ActiveconfirmedProblemPolyp of colon (08979512)Polyp of colon (K63.5)ActiveconfirmedProblemChronic kidney disease stage 3 (disorder) (069117331)Chronic kidney disease, stage 3 (moderate) (N18.3)ActiveconfirmedProblemBalanitis (08636141)Balanitis (N48.1)Active confirmedProblemBradycardia (54394133)Bradycardia, unspecified (R00.1)Active confirmedProblemShortness of breath (897748589)Shortness of breath (R06.02) ActiveconfirmedProblemBlister of ankle without infection (94601350)Blister (nonthermal), unspecified lower leg, initial encounter (S80.527Q)Activeconfirmed ProblemAtrial fibrillation (05973936)Atrial fibrillation (I48.91)Activeconfirmed ProblemHyperlipidemia (02164223)Hyperlipidemia (E78.5)ActiveconfirmedProblem Aortic regurgitation (32724800)Aortic regurgitation (I35.1)Activeconfirmed ProblemHypertension (51035022)Hypertension (I10)ActiveconfirmedProblemCongestive heart failure (33840199)CHF (congestive heart failure) (I50.9)Activeconfirmed ProblemAsthma (002272867)Asthma (J45.909)ActiveconfirmedProblemCervical radiculopathy (67911931)Cervical radiculopathy (M54.12)ActiveconfirmedProblem Tricuspid regurgitation (851472197)Tricuspid regurgitation (I07.1)Active confirmedProblemAortic valve disorder (8986842)Aortic stenosis (I35.0)Active confirmedProblemAtrial fibrillation (disorder) (99393882)Afib (I48.91)Active confirmedProblemHypertension (18286421)HTN (hypertension) (I10)Activeconfirmed ProblemEdema (33279346)Edema (R60.9)ActiveconfirmedProblemDM - Diabetes mellitus (90928927)DM (diabetes mellitus) (E11.9)ActiveconfirmedProblemDepression (436133854)Depression (F32.9)ActiveconfirmedProblemPeripheral neuropathy (246248722)Peripheral neuropathy (G62.9)ActiveconfirmedProblemVitamin B12 deficiency (715666754)Vitamin B12 deficiency (E53.8)ActiveconfirmedProblemSleep apnea (55781017)Sleep apnea (G47.30)ActiveconfirmedProblemCVA - Cerebrovascular accident (272587795)CVA (cerebral vascular accident) (I63.9)Activeconfirmed ProblemOsteoarthritis of knee (763447171)Osteoarthritis of knee (M17.9)Active confirmedProblemCongestive heart failure (30921947)Congestive heart failure (I50.9)ActiveconfirmedProblemMigraine (58748610)Migraine (G43.909)Active confirmedProblemIrritable bowel syndrome (80672355)IBS (irritable bowel syndrome) (K58.9)ActiveconfirmedProblemPeptic ulcer (02407971)Peptic ulcer (K27.9)ActiveconfirmedProblemGeneralized anxiety disorder (39615542)MERA (generalized anxiety disorder) (F41.1)ActiveconfirmedProblemDiabetes mellitus type 2 (disorder) (52055060)DM2 (diabetes mellitus, type 2) (E11.9)Active confirmedProblemAcute bronchitis (00870577)Acute bronchitis (J20.9)Active confirmedProblemCervical spondylosis with myelopathy (M47.12)Activeconfirmed ProblemPulmonary edema (77569782)Pulmonary edema (J81.1)ActiveconfirmedProblem Diverticulitis (37932396)Diverticulitis (K57.92)ActiveconfirmedProblemDiabetic neuropathy (431149329)Diabetic neuropathy (E11.40)ActiveconfirmedProblemAcute systolic heart failure (464018384)Acute systolic heart failure (I50.21)Active confirmedProblemBenign prostatic hyperplasia (491465227)Benign prostatic hyperplasia (N40.0)ActiveconfirmedProblemDyshidrotic eczema (338578032) Dyshidrotic eczema (L30.1)ActiveconfirmedProblemIron deficiency anemia (43605093)Anemia, iron deficiency (D50.9)ActiveconfirmedProblemVentricular hypertrophy (109500119)Ventricular hypertrophy (I51.7)ActiveconfirmedProblem Hemorrhoid (95243571)Hemorrhoid (K64.9)ActiveconfirmedProblemLabyrinthitis (21082163)Labyrinthitis (H83.09)ActiveconfirmedProblemAltered mental status (404946480)Altered mental status (R41.82)ActiveconfirmedProblemLiver mass (493065365)Liver mass (R16.0)ActiveconfirmedProblemElectrolyte imbalance (823121315)Electrolyte imbalance (E87.8)ActiveconfirmedProblemAltered mental status (805196836)Altered mental state (R41.82)ActiveconfirmedProblemFoot callus (349712455)Foot callus (L84)ActiveconfirmedProblemLeft lower lobe pneumonia (544608736)Left lower lobe pneumonia (J18.9)ActiveconfirmedProblem Dermatochalasis (669445892)Dermatochalasis (H02.839)ActiveconfirmedProblemAcute diastolic heart failure (284779665)Acute diastolic heart failure (I50.31)Active confirmedProblemLentigo maligna (24206953)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 ProblemUrinary tract obstruction (2999836)Urinary obstruction (N13.9)Active confirmedProblemCardiomegaly (6142801)Atrial enlargement, left (I51.7)Active confirmedProblemGeneralized anxiety disorder (31591980)Anxiety neurosis (F41.1) ActiveconfirmedProblemTubulovillous adenoma of colon (4358984921)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 hypertension (53432594) Essential Hypertension (I10)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 ProblemEssential hypertension (22547434)BP (high blood pressure) (I10)Active confirmedProblemHistory of cardioversion (98006475289236)History of cardioversion (Z98.890)ActiveconfirmedProblemDegenerative disorder of macula (027535637)Macular degeneration, 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)ActiveconfirmedProblemDeep vein thrombosis (DVT) of non-extremity vein, unspecified chronicity (I82.90) ActiveconfirmedProblemChronic kidney disease stage 2 (171412023)Chronic kidney disease (CKD), stage 2 (mild) (N18.2)ActiveconfirmedProblemPulmonary hypertension (27256923)Pulmonary hypertension (I27.20)ActiveconfirmedProblemLump in right breast (49922925111886924)Unspecified lump in the right breast, unspecified quadrant (N63.10)ActiveconfirmedProblemAbrasion of skin (92014503) Skin abrasion (T14.8XXA)ActiveconfirmedProblemLiver function tests abnormal (693166589)Liver function test abnormality (R94.5)ActiveconfirmedProblemType II diabetes mellitus without complication (865745000)Diabetes (E11.9)Active confirmedProblemMyocardial infarct (10097204)Myocardial infarct (I21.9)Active confirmedProblemDiabetes mellitus (42646933)Diabetes mellitus (E11.9)Active confirmedProblemResting tremor (28160027)Resting tremor (G25.2)Activeconfirmed ProblemCOVID-19 (624147662)COVID-19 (U07.1)ActiveconfirmedProblemChronic kidney disease stage 3 (disorder) (846587011)Chronic kidney disease, stage 3 unspecified (N18.30)ActiveconfirmedProblemCardiomegaly (2948128)Atrial enlargement, right (I51.7)ActiveconfirmedProblemPericardial effusion - noninflammatory (disorder) (844680648)Other pericardial effusion (noninflammatory) (I31.39)Activeconfirmed Vital Signs Oximetry 90 % 04/06/2025 Blood pressure aqepbrjgy52 mm Hg08/29/20256742Jtudee61 in08/29/2025lood pressure rfmnakeu787 mm Hg08/29/20253639Gielcc923.6 lbs1MI25.48 kg/m208/29/2025 Encounters Encounter Location Date Provider Diagnosis [address] [place] [address] 09/11/2025 Erik Sung UTI (urinary tract infection) N39.[address] [facility] [address] [place] [address] 09/11/2025 Erik Ciriloy [facility] [place] [address] 08/29/2025Doug HoyUrinary frequency R35.0[facility] [place] [address]/Doug HoyConfusion R41.0[facility] [place] [address]/ Erik [facility] [place] [address]/Doug [facility] [place] [address]/[facility] [place] [address]/Doug [facility] [place] [address]/Doug HoyPulmonary edema J81.1[facility] [place] [address]/Doug [facility] [place] [address]/Doug HoyAtrial fibrillation I48.91[facility] [place] [address]/12/2024Doug [facility] [place] [address] 08/22/2025Doug [facility] [place] [address]/07/2025Doug [facility] [place] [address]/Doug [facility] [facility] [address]/02/2025Doug [facility] [facility] [address]/05/2025Doug [facility] [facility] [address]/ Erik [facility] [facility] [address]/Doug [facility] [facility] [address]/03/2025Doug [facility] [facility] [address]/07/2025Doug [facility] [facility] [address]/Doug HoyCHF (congestive heart failure) I50.9 ; Edema R60.9 ; Chronic kidney disease, stage 3 unspecified N18.30 and Urinary obstruction N13.9[facility] [address] [facility] [address]/[facility] [address] [place] [address]/05/2025Doug [facility] [facility] [address] 05/21/2025Doug [facility] [facility] [address]/05/2025Doug HoyPleural effusion Q89ZwahdcwOrthocolor[facility] [facility] [address]/11/2024Doug [facility] [facility] [address]/02/2025 Erik [facility] [facility] [address]/08/2025Doug [facility] [facility] [address]/12/2024Doug [facility] [facility] [address]/12/2024Doug [facility] [facility] [address]/Doug HoyAtrial fibrillation I48.91[facility] [place] [address]/07/2025Doug [facility] [place] [address]/03/2025Doug [facility] [address] [facility] [address]/04/2025Doug [facility] [facility] [address]/04/2025Doug Hoy Atrial fibrillation I48.91[facility] [facility] [address]/Doug [facility] [facility] [address]/11/2024Doug HoyAltered mental status R41.82[facility] [facility] [address]/oug [facility] [facility] [address]/08/2025Doug HoyVitamin B12 deficiency E53.8 ; Hyperlipidemia E78.5 ; Atrial fibrillation I48.91 ; CVA (cerebral vascular accident) I63.9 and Diabetes mellitus E11.9BM[facility] [facility] [address]/Doug HoyAtrial fibrillation I48.91 ; Hyperlipidemia E78.5 and Pulmonary hypertension I27.20[facility] [facility] [address]/Doug Hoy Atrial fibrillation I48.91 and CHF (congestive heart failure) I50.9[facility] [place] [address]/ Erik HoyVitamin B12 deficiency E53.8 ; Encounter for immunization Z23 and UTI (urinary tract infection) N39.0Bu[facility] [place] [address]/oug HoyDiabetic neuropathy E11.40 ; Essential Hypertension I10 ; Resting tremor G25.2 and Anxiety tvbsltzlT67.[address] [facility] [place] [address] 11/17/2024Doug HoyVitamin B12 deficiency E53.8[facility] [address] [place] [address]/01/2025Doug HoyVitamin B12 deficiency E53.8[facility] [place] [address]/01/2025Doug HoyVitamin B12 deficiency E53.8BM[facility] [place] [address]/10/2025Doug HoyVitamin B12 deficiency E53.[address] [address]/04/2025Doug HoyUrinary frequency R35.0 ; Edema R60.9 ; Essential Hypertension I10 and Diabetes mellitus E11.9 Assessments Encounter Date Diagnosis (ICD Code) Assessment Notes Treatment Notes Treatment Clinical Notes Section Notes 09/22/2024 Diabetic neuropathy (ICD-10 - E1 1.40) 09/22/2024Essential Hypertension (ICD-10 - I10)trial of inc labetolol to TID 11/17/2024Vitamin B12 deficiency (ICD-10 - E53.8)12/18/2024Vitamin B12 deficiency (ICD-10 - E53.8)01/15/2025Vitamin B12 deficiency (ICD-10 - E53.8) 01/18/2025Urinary frequency (ICD-10 - R35.0)01/18/2025Edema (ICD-10 - R60.9) 02/22/2025Vitamin B12 deficiency (ICD-10 - E53.8)02/22/2025Hyperlipidemia (ICD- 10 - E78.5)01/18/2025trial fibrillation (ICD-10 - I48.91)02/13/2025ltered mental status (ICD-10 - R41.82)04/10/2025trial fibrillation (ICD-10 - I48.91) 05/08/2025HF (congestive heart failure) (ICD-10 - I50.9)03/26/2025Vitamin B12 deficiency (ICD-10 - E53.8)04/06/2025trial fibrillation (ICD-10 - I48.91) 04/06/2025HF (congestive heart failure) (ICD-10 - I50.9)08/29/2025Vitamin B12 deficiency (ICD-10 - E53.8)08/29/2025Encounter for immunization (ICD-10 - Z23) 05/21/2025Pleural effusion (ICD-10 - J90)07/30/2025Pulmonary edema (ICD-10 - J81.1)08/13/2025trial fibrillation (ICD-10 - I48.91)08/29/2025Urinary frequency (ICD-10 - R35.0)09/04/2025onfusion (ICD-10 - R41.0)09/11/2025UTI (urinary tract infection) (ICD-10 - N39.0)03/14/2025trial fibrillation (ICD-10 - I48.91) 03/14/2025Hyperlipidemia (ICD-10 - E78.5)03/14/2025Pulmonary hypertension (ICD- 10 - I27.20)08/29/2025UTI (urinary tract infection) (ICD-10 - N39.0)05/08/2025 Edema (ICD-10 - R60.9)02/22/2025trial fibrillation (ICD-10 - I48.91)01/18/2025 Essential Hypertension (ICD-10 - I10)4Resting tremor (ICD-10 - G25.2) 09/22/2024nxiety neurosis (ICD-10 - F41.1)01/18/2025Diabetes mellitus (ICD-10 - E11.9)02/22/2025VA (cerebral vascular accident) (ICD-10 - I63.9)05/08/2025 Chronic kidney disease, stage 3 unspecified (ICD-10 - N18.30)05/08/2025Urinary obstruction (ICD-10 - N13.9)02/22/2025Diabetes mellitus (ICD-10 - E11.9) restarting metformin Plan Of Treatment Pending Test Test Name Order Date CMP (COMPLETE METABOLIC PANEL) UA (URINALYSIS, COMPLETE) 05/08/2025 UA (URINALYSIS, COMPLETE) 08/29/2025 UA (URINALYSIS, COMPLETE) 09/04/2025 CBC WITH DIFF 01/18/2025 XR Chest PA and Lateral (Routine CXR) * 07/23/2023 XR Chest PA and Lateral (Routine CXR) * 08/30/2023 XR Chest PA and Lateral (Routine CXR) * 09/09/2023 T3 FREE, T4 FREE and TSH 03/13/2024 Urine Culture 09/04/2025 FECAL OCCULT BLOOD 03/13/2024 [...] CKD-EPI 2024 Next Appt Details Provider Name:Erik Jim Sung, 10:00:00 AM, [address] [facility], [place], [address], Insurance Providers Payer Name Payer Address Payer Phone Subscriber Number Group Number Insured Name Patient Relationship to Insured Coverage Start Date Coverage End Date [place] [address] [place] [address] [id number] Dafne Heredia - patient is the [id number] [facility] [address] [place] [id number] Dafne Londono - patient is the [id number] 2014 Medications Administered Medication Instructions Date of Administration Dosage Notes Ceftriaxone 1 gram g1 nyCyyrbuxzaqjscx14/21/20231 iTNliggjltdvzlva55/19/20231 mL Tqmsmyygqfhboo76/19/20231 bPJexwunbeshnewu61/23/20231 qAUkfzyjvypmgsjs52/21/2023 1 sWKfwfpitwrxswnf09/25/20241 dCHmojrkjyysgger19/23/20241 mLCyanocobalamin gCWhcdbwmdexqbfp18/19/20241 rPUmymeqbvgaajfp60/20/20241 mL Xyygljxyrwwjnf24/20/20241 fVQdyzdcovnysnwl22/19/20241 iJVwhjlkhiwcwlfi84/23/2024 1 nOZffubcwmjbzvlh37/23/20241 cbUbkukvwigijlgb04/03/20251 mLCyanocobalamin yFGcnijewafreliw49/03/20251 cUEapiufexjnxsir13/10/20251 mL Ezjetaqcswhnlu46/12/20251 mAAtpkjcgnbcgpoj08/15/20251 mL Medical (General) History Medical History History [...]
--- OUTSIDE RECORDS SUMMARY | 2025-09-14 10:51 | XMS_ITS | Clinical Summary ---
Author Organization [facility] Address [address] [place] [address] Care Team Providers Care It Systems Administrator Name Role Phone Pj Sung MD Primary Care Provider [phone] Allergies Active AllergyReactionsCriticalityNoted DateCommentsNitro-PatchIntolerance 08/21/2013 Medications MedicationSigDispense [...] ophthalmic suspension 07/19/2016Active Active Problems ProblemNoted DateDiagnosed VxffIdscofvzvibtnw47/07/2013 Social History Tobacco UseTypesPacks/DayYears UsedDateSmoking Tobacco: NeverSmokeless Tobacco: NeverAlcohol UseStandard Drinks/WeekCommentsNo0 (1 standard drink = 0.6 oz pure alcohol)Sex and Gender InformationValueDate RecordedSex Assigned at BirthNot on fileLegal YzjYmcv82/02/2012 10:12 AM ESTGender IdentityNot on fileSexual OrientationNot on file Last Filed Vital Signs Vital SignReadingTime TakenCommentsBlood Mzbtzfmj693/ 10:47 AM EDT Nfmuf671308/24/2016 10:47 AM KYWZezwctujzwd44.4 ??C (97.5 ??F)08/24/2016 10:47 AM EDTRespiratory Obia5919 10:47 AM EDTOxygen Saturation--Inhaled Oxygen Concentration--Wfvscq795.7 kg (226 lb 6.4 oz)08/24/2016 10:47 AM TGFOyrlga951.9 cm (6')08/24/2016 10:47 AM EDTverified dmcBody Mass Index30.7108/24/2016 10:47 AM EDT Plan of Treatment Health MaintenanceDue DateLast DoneCommentsAnxiety Lckirhlby20/25/1957Depression Lcgihaish34/25/1957DTaP,Tdap,Td Vaccine (1 - Tdap)1958Diabetes Screening 02/07/1984Pneumococcal Vaccine: 50+ (1 of 1 - PCV)1989Shingrix Vaccine (1 of 2)1989RSV Vaccine (1 - 1-dose 75+ series)2014dvance Directive Qhgngpevmu19/01/2025ovid-19 Vaccine ( - 2024- season)2025Influenza Vaccine (#1)2025 Insurance [facility] [employer] Address: [facility] [id number] [place] [address] Care Teams Team MemberRelationshipSpecialtyStart DateEnd Pj Sung MD PCP - GeneralFamily Sxqqprmu64/10/12
--- OUTSIDE RECORDS SUMMARY | 2025-09-14 10:54 | XMS_ITS | CCD ---
Author Organization [facility] CliniSyri Care Team Providers Care Chair Mender Name Role Phone PHYSICIAN, DEFAULT Admitting Unavailable PHYSICIAN, DEFAULT Attending Unavailable VAN YOUSSEF Primary Care Unavailable Van Youssef Primary Care Physician MIKAEL ., DR ARAUJO Primary Care Unavailable HOY ., DR ARAUJO Consulting Unavailable HOY ., DR RAAUJO Attending Unavailable HOY ., DR ARAUJO Admitting Unavailable ZIEBER, DR CLOVER Zimmer Consulting Unavailable [place], DR CRAMER Consulting Unavailable HOY ., DR ARAUJO Primary Care Unavailable [place], DR CRAMER Attending Unavailable [place], DR CRAMER Admitting Unavailable [place], DR CRAMER Consulting Unavailable HOY ., DR ARAUJO Primary Care Unavailable [place], DR CRAMER Attending Unavailable [place], DR CRAMER Admitting Unavailable HOY ., DR ARAUJO Consulting Unavailable HOY ., DR ARAUJO Primary Care Unavailable HOY ., DR ARAUJO Attending Unavailable HOY ., DR ARAUJO Admitting Unavailable [place], DR CRAMER Consulting Unavailable HOY ., DR ARAUJO Primary Care Unavailable [place], DR CRAMER Attending Unavailable [place], DR CRAMER Admitting Unavailable HOY ., DR [...] Unavailable Van Youssef MD Primary Care Provider [phone] Van Youssef MD Primary Care Provider [phone] Van Youssef MD Primary Care Provider [phone] DO Bunny VERDUGOobir R Admitting UnavailDO Bunny Smithobir R Attending UnavailClover Villatoro Consulting Unavailable MD Clover Walker Consulting Unavailable Anderson, Clover Consulting Unavailable Anderson, Clover Consulting Unavailable Anderson Clover Consulting Unavailable Anderson Clover Consulting Unavailable Anderson, Clover Consulting Unavailable Anderson, Clover Consulting Unavailable Anderson, Clover Consulting Unavailable [facility] Wound, XXXX Consulting Unavailable [facility] Cardio, XXXX Consulting Unavailable Hanna Mahmoud Consulting Unavailable MD Rebeca Ferreira Consulting Unavailable Othman Mahmoud Consulting Unavailable KARTIK, Ronobir R Admitting Unavailable Bunny VERDUGOobir R Attending Unavailable [facility] Wound, XXXX Consulting Unavailable HOY, VAN M [...] CISNEROS Admitting Unavailable NIKOLAS GONZALEZ Attending Unavailable GARÍCA MUIR Referring Unavailable HUGHES, AISSATOU Referring Unavailable MOUKARBCLARIBEL DINH Referring Unavailable ERIC, NICOLE Referring Unavailable Marc [...] Attending Unavail able Mejia SINGH Attending Unavailable LU OLMEDO Attending Unavailable NKANSAH-AMANKRA, MARQUIS Referring Unavail able NKANSAH-AMANKRA, MARQUIS Attending Unavail able NKANSAH-AMANKRA, MARQUIS Attending Unavail able NKANSAH-AMANKRA, MARQUIS Referring Unavail able NKANSAH-AMANKRA, MARQUIS Admitting Unavail able NKANSAH-AMANKRA, MARQUIS Attending Unavail able NKANSAH-AMANKRA, MARQUIS Referring Unavail able NKANSAH-AMANKRA, MARQUIS Admitting Unavail able Rivas Griggs Attending Unavailable Van Youssef MD Attending Provider [phone] CLARIBEL CISNEROS Attending Unavailable RUY SULLIVAN Attending Unavailable CLARIBEL CISNEROS Attending Unavailable CLARIBEL CISNEROS Referring Unavailable RUY SULLIVAN Attending Unavailable RUTHIE LINDA Attending Unavailable JEFF REYES Attending Unavailable CLARIBEL CISNEROS Attending Unavailable CLARIBEL CISNEROS Attending Unavailable Van Youssef Attending Unavailable Van Youssef Admitting Unavailable Van Youssef MD Primary Care Provider BLAISE CHICAS Attending Unavailable BARRIE MONTOYA Attending Unavailable BLAISE CHICAS Attending Unavailable MONY HERRON Attending Unavailable BLAISE CHICAS Attending Unavailable BARRIE MONTOYA Attending Unavailable BLAISE CHICAS Attending Unavailable BLAISE CHICAS Attending Unavailable BARRIE MONTOYA Attending Unavailable RODNEY JOY Attending Unavailable Allergies Allergy ClassificationReported Allergen(s)Allergy TypeDate of OnsetReaction(s) Facility (20 sources)Aminolevulinic Acid; Translations: [aminolevulinic acid]Drug Allergy 56-29-9252AhqvfelXdwOhio[facility] (1 source)NITRO PATCH; Translations: [NITRO PATCH]Propensity to adverse reactions (disorder)88-70-2396[facility]Tri[facility] (20 sources)Contrast media; Translations: [Contrast Dye]Drug allergyUnknown (qualifier value)[facility] (20 sources)Hmg-Coa Reductase Inhibitors (Statins); Translations: [statins] Allergy to -13-7568WvduqsgSbizmk-[facility] (20 sources)Nitroglycerin; Translations: [nitroglycerin]Drug Tlbrcjc86-30-6703 Unknown (qualifier value)[facility] (2 sources)black walnut pollen extract; Translations: [YMWQMBD-WUF-XCI REDUCTASE INHIBITORS]Drug Ecovbcu54-40-1610VtnC[facility] (1 source)Iodine (And Iodine Containting Drugs)Drug allergy (disorder)05-28-2016 [facility] Repository (20 sources)NitroglycerinAllergy to epirakanq58-17-6411[facility] (20 sources)Iodinated Contrast Media; Translations: [IODINATED CONTRAST MEDIA] Drug Dizebbs87-30-3115DQJA [facility] (14 sources)Simvastatin; Translations: [simvastatin]Drug Eixnqap66-35-1989 elevated liver enzymesExecutive Urology of [facility] (7 sources)Aminolevulinic Acid; Translations: [aminolevulinic acid]Drug Allergy 16-89-0935ImllqgUniversity [facility]als [facility] Repository (7 sources)Nitroglycerin; Translations: [Nitroglycerin Patch]Drug AllergyUniversity Hospitals [facility] Rep[facility] (2 sources)Aminolevulinic Acid; Translations: [AMINOLEVULINIC ACID HCL]Drug Chabymw01-84-6465MxwlxrvisqAult[facility] Repository Medications Current Medications MedicationDrug Class(es)DatesSig (Normalized)Sig (Original)acetaminophen 500 mg oral tablet (14 sources)take 2 tablets by mouth every six hours as needed for pain acetaminophen (Tylenol) 500 MG tablet Take 1,000 mg by mouth every 6 (six) hours if needed for mildpain Activeacetaminophen 325 mg / HYDROcodone bitartrate 5 mg oral tablet (4 sources)Opioid AgonistStart: 37-93-7631owbq 1 tablet by mouth every six hours as needed for pain, then take 2 tablets by mouth every six hours as needed for painNorco 325 mg-5 mg oral tablet 1 tab(s), Oral, q6hr, 2 tab(s), Refill(s) 0, Take q6hrs as needed forpain., [facility]/pharmacy #[id number], 185, cm, 10/02/24 11:15:00 EST, Height/Length Dosing, 91, kg, 10/02/24 11:15:00 EST, Weight Dosing Start Date: 10/16/24 Status: Orderedacyclovir 400 mg oral tablet (20 sources)Herpesvirus Nucleoside Analog DNA Polymerase Inhibitor, Herpes Simplex Virus Nucleoside Analog DNA Polymerase Inhibitor, Herpes Zoster Virus Nucleoside Analog DNA Polymerase InhibitorStart: 49-40-2727tkez 400 mg by mouth twice dailyacyclovir 400 mg, Oral, BID, Refills(s) 0, Infection or prophylaxis for antibiotics Start Date: 01/09/19 Status: Orderedalogliptin 25 mg oral tablet (20 sources)Start: 20-03-8119hwlg 1 tablet by mouth in the morningalogliptin (Nesina) 25 MG tablet Take 1 tablet by mouth in the morning. 11/12/2022 Active ALPRAZolam 0.25 mg oral tablet (20 sources)BenzodiazepineStart: 60-01-3162msrg 1 tablet by mouth every eight hours [...] mg oral tablet (20 sources)Factor Xa InhibitorStart: 42-50-8151azso 2.5 mg by mouth twice daily Eliquis 2.5 mg, Oral, BID, Refills(s) 0, Blood Thinner Start Date: 01/09/19 Status: OrderedStart: 98-83-9787yldi 5 mg by mouth twice dailyEliquis 5 mg, Oral, BID, Refills(s) 0, Blood Thinner Start Date: 01/09/19 Status: Ordered End: 70-32-4648phlvidil (Eliquis) 2.5 MG tablet every 12 (twelve) hours. 04/10/2025 DiscontinuedAspirin (20 sources)Platelet Aggregation Inhibitor, Nonsteroidal Anti-inflammatory Drug Start: 39-05-3953Xoeeoot Low Dose 81 mg, Daily Start Date: 06/11/25 Status: Ordered Repeat number: 1Start: 15-92-3822btoc 81 mg by mouth once dailyaspirin 81 mg, Oral, Daily, Refills(s) 0, Prophylaxis Start Date: 01/09/19 Status: Ordered Repeat number: 1take 1 tablet by mouth in the morningaspirin 81 MG EC tablet Take 1 tablet by mouth in the morning. ActiveB Complex with Vitamin C Gummy oral tablet, chewable (2 sources)Start: 74-30-5478jhrn 1 tablet by mouth once dailyB Complex with Vitamin C Gummy oral tablet, chewable 1 tab(s), Chewed, Daily, Refill(s) 0 Start Date: 04/14/25 Status: Ordered Repeat number: 1B-Complex tablet (20 sources)B-Complex tablet as directed Orally Activebacitracin zinc 0.5 unt/mg topical ointment (14 sources)bacitracin 500 UNIT/GM ointment Apply 1 application topically in the morning and 1 application before bedtime. Activebacitracin top 500 units/g Oint PACKET (2 sources)Start: 15-21-6481utjdewahib top 500 units/g Oint PACKET Topical, BID, Refill(s) 0 Start Date: 04/18/25 Status: OrderedRepeat number: 1Symbicort (20 sources)Corticosteroid, beta2-Adrenergic AgonistStart: 57-79-5677Kqbukudce 80-4.5 mcg/actuation, Inhalation, BID, Refill(s) 0, COPD Start Date: 01/09/19 Status: Ordered Repeat number: 1Start: 01-22-0968Pjpxkjsjz 80-4.5 mcg/actuation, Inhalation, BID, Refill(s) 0, COPD Start Date: 01/09/19 Status: Orderedtake 2 puff(s) by inhalation in the morningbudesonide-formoterol (Symbicort) 80-4.5 MCG/ACT inhaler Inhale 2 puffs in the morning and 2 puffs before bedtime. Rinse mouth with water after use to reduce aftertaste and incidence of candidiasis. Do not swallow. Active End: 93-76-0044offilhgocf-formoterol (Symbicort) 80-4.5 MCG/ACT inhaler 1 (one) time each day at the same time. 08/01/2024 Discontinuedcetirizine hydrochloride 10 mg oral tablet (16 sources)Histamine-1 Receptor AntagonistStart: 28-75-8148zenc 1 tablet by mouth once dailycetirizine 10 [...] 500 mg oral tablet (5 sources)Quinolone AntimicrobialStart: 16-05-3055rzxs 1 tablet by mouth twice dailyCipro 500 mg Tab 500 mg = 1 tab(s), Oral, BID, Start 1 day prior to procedure., # 6 tab(s), Refills(s) 0, Pharmacy: [facility]/pharmacy #[id number], 185, cm, 10/02/24 11:15:00 EST, Height/Length Dosing, 91, kg, 10/02/24 11:15:00 EST, Weight Dosing Start Date: 10/16/24 Status: OrderedStart: 81-20-8490mgpk 1 tablet by mouth twice dailyCipro 500 mg Tab 500 mg = 1 tab(s), Oral, BID, Start 3 days prior to procedure., # 6 tab(s), Refills(s) 0, Pharmacy: [facility]/pharmacy #[id number], 185, cm, 08/08/24 10:28:00 EDT, Height/Length Dosing, 91, kg, 08/08/24 10:28:00 EDT, Weight Dosing Start Date: 08/11/24 Status: OrderedDaily Fiber Sugar-Free (1 source)Start: 13-78-8430gphk 3 capsules by mouth once dailyDaily Fiber Sugar- Free 3 capsules, Oral, Daily, Refill(s) 0 Start Date: 04/14/25 Status: Ordered Repeat number: 1dapagliflozin 5 mg oral tablet (1 source)Sodium-Glucose Cotransporter 2 InhibitorStart: 98-85-1679wvyj 5 mg by mouth once dailyFarxiga 5 mg, Oral, Daily Start Date: 06/11/25 Status: Ordered Repeat number: 1diazePAM 10 mg oral tablet (4 sources)BenzodiazepineStart: 81-22-4467Qckejv 10 mg Tab 10 mg = 1 tab(s), Oral, Once, take one hour prior to the procedure., # 1 tab(s), Refills(s) 0, Pharmacy: [facility]/pharmacy #[id number], 185, cm, 10/02/24 11:15:00 EST, Height/Length Dosing, 91,kg, 10/02/24 11:15:00 EST, Weight Dosing Start Date: 10/16/24 Status: Ordereddicyclomine hydrochloride 10 mg oral tablet (20 sources)AnticholinergicStart: 38-40-9451cprc 10 mg by mouth twice daily dicyclomine 10 mg, Oral, BID, Refills(s) 0, Spasm Start Date: 01/09/19 Status: Ordered Repeat number: 1take 1 capsule by mouth once dailydicyclomine (Bentyl) 10 MG capsule Take 1 capsule every day by oral route. ActiveDULoxetine 20 mg delayed release oral capsule (20 sources)Serotonin and Norepinephrine Reuptake InhibitorStart: 08-01-2024 End: 77-07-0357nurs 1 capsule by mouth at bedtimeDULoxetine (Cymbalta) [address] capsule Indications: Neurogenic pain Take 1 capsule (20 mg) by mouthat bedtime 90 capsule 1 08/01/2024 Activeempagliflozin 25 mg oral tablet (20 sources)Sodium-Glucose Cotransporter 2 InhibitorStart: 95-01-0300vfoo 1 tablet by mouth in the morningempagliflozin (Jardiance) 25 MG Take 1 tablet by mouth in the morning. 11/12/2022 ActiveStart: 28-51-8484Qbgvdlixo 10 mg oral tablet 25 mg, Oral, qAM, Refills(s) 0, Blood glucose Start Date: 03/31/22 Status: Ordered Repeat number: 1Start: 96-87-0636xctt 1 tablet by mouth once daily in the morningJardiance 10 mg oral tablet 10 mg = 1 tab(s), Oral, qAM, Refills(s) 0, Blood glucose Start Date: 03/31/22 Status: Orderedezetimibe 10 mg oral tablet (20 sources)Dietary Cholesterol Absorption InhibitorStart: 60-67-0533tmfx 10 mg by mouth once dailyZetia 10 mg, Oral, Daily, Refills(s) 0, High cholesterol Start Date: 01/09/19 Status: Ordered Repeatnumber: 1ferrous sulfate (20 sources)Start: 40-80-0841jssmtvf sulfate 325 mg, BID, Refills(s) 0, Prophylaxis Start Date: 01/09/19 Status: Orderedtake 1 tablet by mouth in the morningferrous sulfate 325 (65 Fe) MG tablet Take 1 tablet by mouth in the morning and 1 tablet before bedtime. Ukwwyx32 actuat fluticasone propionate 0.113 mg/actuat / salmeterol xinafoate 0.014 mg/actuat dry powder inhaler (14 sources)Corticosteroid, beta2-Adrenergic Agonisttake 1 puff(s) by mouth in the morningfluticasone-salmeterol (AirDuo RespiClick) 113-14 MCG/ACT inhaler Inhale 1 puff in the morning and 1 puff before bedtime. Rinse mouth with water after use to reduce aftertaste and incidence of candidiasis. Do not swallow. Activefurosemide 20 mg oral tablet (20 sources)Loop DiureticStart: 92-63-1860fdgd 1 mg by mouth once dailyLasix 80 mg Tab mg tab(s), Oral, Daily, Refills(s) 0 Start Date: 08/08/24 Status: Ordered Start: 66-95-6220Cvetl 20 MG tablet 1 (one) time each day at the same time. 07/07/2023 ActiveStart: 74-29-2098Ucyhl 40 mg, Refills(s) 0, diuretic/water pill Start Date: 01/09/19 Status: Orderedgabapentin 600 mg oral tablet (17 sources)Anti-epileptic AgentStart: 04-77-0430ukgdanskfz 600 mg, Oral, qNOON, Refills(s) 0, Neuropathy Start Date: 01/09/19 Status: Orderedglimepiride 8 mg oral tablet (20 sources)SulfonylureaStart: 94-88-5053mnti 8 mg by mouth once daily glimepiride 8 mg, Oral, Daily, Refills(s) 0, High blood sugar Start Date: 01/09/19 Status: Ordered Repeat number: 1Start: 06-18-7330ajol 2 mg by mouth once dailyglimepiride 2 mg, Oral, Daily, Refills(s) 0, High blood sugar Start Date: 01/09/19 Status: Orderedtake 1 tablet by mouth in the morningglimepiride (Amaryl) 4 MG tablet Take 1 tablet by mouth in the morning and 1 tablet before bedtime. ActivehydrALAZINE hydrochloride 100 mg oral tablet (20 sources)Arteriolar VasodilatorStart: 01-09-2019 End: 35-38-4833kokh 100 mg by mouth twice dailyhydrALAZINE 100 mg, Oral, BID, Refills(s) 0, High blood pressure Start Date: 01/09/19 Status: Ordered3 ml insulin lispro 50 unt/ml / insulin lispro protamine, human 50 unt/ml pen injector (14 sources)Insulin Analoginsulin lispro protamine-insulin lispro (HumaLOG MIX 50/50 KWIKPEN) (50-50) 100 UNIT/ML injection Inject under the skin in the morning and in the evening. Inject with meals. Activelabetalol hydrochloride 300 mg oral tablet (20 sources)beta-Adrenergic BlockerStart: 04-17-2025 End: 52-70-6177osaqnvhyt 100 mg Tab 300 mg = 3 tab(s), Tab, Oral, Start date 04/17/25 10:00:00 PM EDT, 04/16/25 7:36:00 EDT Start Date: 04/17/25 Stop Date: 04/17/25 Status: Completed Repeat number: 1Start: 04-16-2025 End: 08-53-9522rxwnfnuhz 100 mg Tab 300 mg = 3 tab(s), Tab, Oral, Start date 04/16/25 10:00:00 PM EDT, 04/16/25 7:36:00 EDT Start Date: 04/16/25 Stop Date: 04/16/25 Status: Completed Repeat number: 1Start: 66-33-3449qpgvemnqo 300 mg Tab 300 mg = 1 tab(s), Refills(s) 0 Start Date: 06/11/25 Status: Ordered Repeat numb er: 1Start: 68-84-6717racq 150 mg by mouth once dailylabetalol 150 mg, Oral, Daily, Refills(s) 0, High blood pressure Start Date: 01/09/19 Status: Ordered Start: 19-33-7517eabq 300 mg by mouth once dailylabetalol 300 mg, Oral, Daily, Refills(s) 0, High blood pressure Start Date: 01/09/19 Status: Orderedtake 0.5 tablet by mouth twice dailylabetalol (Normodyne) 300 MG tablet TAKE 1/2 TABLET BY MOUTH 2 TIMES DAILY ActivelevoFLOXacin 750 mg oral tablet (20 sources)Quinolone AntimicrobialStart: 48-52-1510rxrhMSAGxxwf (Levaquin) 750 MG tablet 1 (one) time each day at the same time. 07/23/2023 Activelinagliptin 5 mg oral tablet (15 sources)Dipeptidyl Peptidase 4 InhibitorStart: 16-03-4078cdpn 5 mg by mouth once dailyTradjenta 5 mg, Oral, Daily Start Date: 06/11/25 Status: Ordered Repeat number: 1Loratadine (15 sources)Start: 96-89-5941amtgmmbmsn 10 mg, Daily Start Date: 06/11/25 Status: Ordered Repeat number: 1take 1 tablet by mouth once dailyloratadine (Claritin Reditabs) 10 MG disintegrating tablet Take 10 mg by mouth Daily Activemagnesium oxide 500 mg oral tablet (20 sources)Start: 03-73-3036nuxj 500 mg by mouth three times dailymagnesium oxide 500 mg, Oral, TID, Refills(s) 0, Prophylaxis Start Date: 08/28/20 Status: Ordered Repeat number: 1Start: 74-29-0309tawq 500 mg by mouth once daily magnesium oxide 500 mg, Oral, Daily, Refills(s) 0, Prophylaxis Start Date: 08/28/20 Status: OrderedStart: 26-17-3679gydkxphmj oxide Oral, Refills(s) 0 Start Date: 08/28/20 Status: OrderedmetFORMIN hydrochloride 500 mg oral tablet (20 sources)BiguanideStart: 97-06-4904lzdx 1 tablet by mouth three times daily metformin 500 mg Tab 500 mg = 1 tab(s), Oral, TID, Refills(s) 0 Start Date: 08/08/24 Status: OrderedRepeat number: 1Start: 08-28-2020 End: 10-81-0995yrcv 1 mg by mouth once dailymetformin 500 mg ER Tab mg tab(s), Oral, Daily, Refills(s) 0 Start Date: 08/28/20 Status: Orderedmetoclopramide 5 mg oral tablet (20 sources)Dopamine-2 Receptor AntagonistStart: 78-62-7749shfd 5 mg by mouth twice dailymetoclopramide 5 mg, Oral, BID, Refills(s) 0, Control of stomach acid Start Date: 01/09/19 Status: Orderedmetoclopramide (Reglan) 5 MG tablet every 12 (twelve) hours Activemupirocin 20 mg/ml topical cream (6 sources)RNA Synthetase Inhibitor AntibacterialStart: 41-97-6180knhdsgqzm Top 2% Crm Refill(s) 0 Start Date: 08/08/24 Status: Ewpdqhr33 hr NIFEdipine 90 mg extended release oral tablet (20 sources)Dihydropyridine Calcium Channel BlockerStart: 89-09-9804curh 90 mg by mouth twice dailyNIFEdipine 90 mg, Oral, BID, Refills(s) 0, High blood pressure Start Date: 01/09/19 Status: OrderedStart: 59-27-6207ocbx 90 mg by mouth once dailyNIFEdipine 90 mg, Oral, Daily, Refills(s) 0, High blood pressure Start Date: 01/09/19 Status: Ordered End: 03-95-5902mjxt 1 tablet by mouth twice dailyNIFEdipine XL (Procardia XL) 60 MG 24 hr tablet Take 1 tablet twice a day by oral route for 90 days. 08/01/2024 DiscontinuedNuLYTELY Lemus oral powder for reconstitution (1 source)Start: 04-95-6969wtae 1 dose by mouth once dailyNuLYTELY Mariah oral powder for reconstitution See Instructions, 1 EA, Refill(s) 0, 240 mL Oral Daily Prior to colonoscopy Per physician's instructions, [facility]/pharmacy #[id number], 185, cm, 03/31/22 9:58:00 EDT, Height/Length Dosing, 101, kg, 03/31/22 9:58:00 EDT, Weight Dosing Start Date: 03/31/22 Status: Orderedomeprazole 20 mg delayed release oral capsule (20 sources)Proton Pump InhibitorStart: 84-01-1670cxurxnmpyc 20 mg Cap-DR 20 mg = 1 cap(s) Start Date: 06/11/25 Status: Ordered Repeat number: 1Start: 01-09-2019 omeprazole 20 mg, Oral, Daily, Refills(s) 0, Control of stomach acid Start Date: 01/09/19 Status: Ordered Repeat number: 1Start: 89-93-3137ppcb 20 mg by mouth twice dailyomeprazole 20 mg, Oral, BID, Refills(s) 0, Control of stomach acid Start Date: 01/09/19 Status: Orderedtake 2 capsules by mouth once dailyomeprazole (PriLOSEC) [address] capsule Take 2 capsules every day by oral route for 90 days. Activephenazopyridine hydrochloride 100 mg oral tablet (1 source)Start: 10-16-2024 End: 98-14-5442Gbpbsric 100 mg Tab 100 mg = 1 tab(s), Oral, TID, Take TID as needed., X 2 week(s), # 42 tab(s), Refills(s) 0, Pharmacy: [facility]/pharmacy #[id number], 185, cm, 10/02/24 11:15:00 EST, Height/Length Dosing, 91, kg, 10/02/24 11:15:00 EST, Weight Dosing Start Date: 10/16/24 Stop Date: 10/30/24 Status: Ordered pioglitazone 30 mg oral tablet (20 sources)Peroxisome Proliferator Receptor alpha Agonist, Peroxisome Proliferator Receptor gamma Agonist, ThiazolidinedioneStart: 08-28-2020 pioglitazone 30 mg Tab 45 mg, Oral, Daily, Refills(s) 0, Blood glucose Start Date: 08/28/20 Status:Ordered Repeat number: 1Start: 08-28-2020 End: 67-54-3902azut 1 tablet by mouth once dailypioglitazone 30 mg Tab 30 mg = 1 tab(s), Oral, Daily, Refills(s) 0, Blood glucose Start Date: 08/28/20 Status: Orderedtake 1 tablet by mouth once dailypioglitazone (Actos) 45 MG tablet TAKE 1 TABLET BY MOUTH EVERY DAY for 90 Activepolyethylene glycol 3350 69731 mg powder for oral solution (14 sources)Osmotic Laxativetake 17 g by mouth every twenty-four hours as needed polyethylene glycol, PEG, 3350 (Miralax) 17 g packet Take 17 g by mouth Daily as needed ActiveKlor-Con (20 sources)Start: 63-59-9329Oohl-Con 20 mEq, Oral, Daily, Refills(s) 0, Prophylaxis Start Date: 01/09/19 Status: Ordered Repeat number: 1Start: 63-56-1519Jtcd-Con 20 mEq, Oral, Daily, Refills(s) 0, Prophylaxis Start Date: 01/09/19 Status: Orderedtake 1 tablet by mouth in the morningKLOR-CON 20 MEQ ER tablet Take 1 tablet by mouth in the morning and 1 tablet before bedtime. Active take 20 mEq by mouth once dailypotassium chloride (Klor-Con) 20 MEQ packet Take 20 mEq by mouth Daily ActivePred Mild (20 sources)CorticosteroidStart: 64-63-0706efyd 1 drop(s) into the eye(s) twice dailyPred Mild 1 drop(s), Eye-Both, BID, Refill(s) 0, Inflammation Start Date: 01/09/19 Status: Ordered Repeat number: 1Start: 10-54-5707wmqd 1 drop(s) into the eye(s) three times dailyPred Mild 1 drop(s), Eye-Both, TID, Refill(s) 0, Inflammation Start Date: 01/09/19 Status: OrderedStart: 04-69-7238idwi 1 drop(s) into the eye(s) twice dailyPred Mild 1 drop(s), Eye-Both, BID, Refill(s) 0, Inflammation Start Date: 01/09/19 Status: Orderedtake 1 drop(s) into the eye(s) three times dailyprednisoLONE acetate (Pred-Forte) 1 % ophthalmic suspension INSTILL 1 DROP INTO RIGHT EYE 3 TIMES ADAY DIRECTED Activeprimidone 250 mg oral tablet (20 sources)Anti-epileptic AgentStart: 08-01-2024 End: 98-35-4540zlleybbcj (Mysoline) 250 MG tablet Indications: Benign essential tremor 1/2 tab BID 90 tablet 1 04/10/2025 ActiveStart: 01-11-2024 End: 49-84-1117deshcmntk (Mysoline) 50 MG tablet Indications: Benign essential tremor 1 tab TID 270 tablet 3 01/11/2024 08/01/2024 Discontinued (Reorder)Start: 87-32-3643yhsi 2 tablets by mouth twice dailyprimidone 50 [...] 01/09/19 Status: Orderedrivaroxaban 15 mg oral tablet (20 sources)Factor Xa InhibitorStart: 38-91-0619sfey 1 tablet by mouth once daily in the eveningXarelto 15 mg oral tablet 15 mg = 1 tab(s), Oral, qPM, Refills(s) 0 Start Date: 04/14/25 Status: Ordered Repeat number: 1SITagliptin 100 mg oral tablet (19 sources)Dipeptidyl Peptidase 4 InhibitorStart: 66-87-7110xncp 100 mg by mouth once dailyJanuvia 100 mg, Oral, Daily, Refill(s) 0, High blood sugar Start Date: 01/09/19 Status: Ordered Repeat number: 1Spiriva Respimat 1.25 mcg/inh inhalation aerosol (1 source)Start: 22-74-0634Eommzzl Respimat 1.25 mcg/inh inhalation aerosol 2 puff(s), Inhalation, Daily, Refill(s) 0, COPD Start Date: 01/09/19 Status: Orderedspironolactone 25 mg oral tablet (16 sources)Aldosterone AntagonistStart: 60-44-9906rpcv 1 tablet by mouth once dailyspironolactone 25 mg Tab 25 mg = 1 tab(s), Oral, Daily, Refills(s) 0 Start Date: 04/14/25 Status: Ordered Repeat number: 1tamsulosin hydrochloride 0.4 mg oral capsule (20 sources)alpha-Adrenergic BlockerStart: 01-09-2019 End: 37-55-7910lmxh 0.4 mg by mouth once dailyFlomax 0.4 mg, Oral, Daily, Refills(s) 0, Urinary discomfort Start Date: 01/09/19 Status: Ordered Repeat number: 160 actuat tiotropium 0.49487 mg/actuat inhalation spray (20 sources)AnticholinergicStart: 37-51-5372Bmjgjbn Respimat 1.25 mcg/inh inhalation aerosol 2 puff(s), Inhalation, Daily, Refill(s) 0, COPD Start Date: 01/09/19 Status: Ordered Repeat number: 1take 1 capsule by inhalation in the morningtiotropium (Spiriva) [address] 1 capsule into inhaler and inhale in the morning. ActiveVitamin D3 2000 intl units (2 sources)Start: 15-36-6791gmua 2000 [IU] by mouth once dailyVitamin D3 2000 intl units 2,000 unit(s), Oral, Daily, Refills(s) 0 Start Date: 04/14/25 Status: Ordered Repeat number: 1 Completed/Discontinued Medications MedicationDrug Class(es)DatesSig (Normalized)Sig (Original)Bacillus Coagulans- Inulin (Align Prebiotic-Probiotic) 5-1.25 MG-GM chewable tablet (9 sources) End: 67-93-4940Uqnojxyl Coagulans-Inulin (Align Prebiotic-Probiotic) 5-1.25 MG- GM chewable tablet 1 capsule 1 (one) time each day at the same time. 08/01/2024 DiscontinuedBacillus Coagulans-Inulin (Align Prebiotic-Probiotic) 5-1.25 MG-GM chewable tablet 1 capsule 1 (one) time each day at the same time. Active betamethasone 0.5 mg/ml / clotrimazole 10 mg/ml topical cream (8 sources)Azole Antifungal, CorticosteroidStart: 22-55-8429ieefesyvllkii- clotrimazole Top 0.05%-1% Crm 15 gram Refill(s) 0 Start Date: 08/08/24 Status: OrderedRepeat number: 1bifidobacterium infantis 4 mg oral capsule (16 sources)Start: 06-10-2023 End: 35-52-7247ggxy 1 capsule by mouth once dailyProbiotic Product (Align) capsule TAKE 1 CAPSULE BY MOUTH DAILY AFTER COMPLETING THE ANTIBIOTICS COURSE 06/10/2023 08/01/2024 DiscontinuedStart: 44-06-4786yixq 1 capsule by mouth once dailyAlign 4 mg oral capsule 4 mg = 1 cap(s), Oral, Daily, Take after completing the Antibiotics course,# 28 cap(s), Refills(s) 0, Pharmacy: [facility]/pharmacy #[id number], 185, cm, 08/28/20 12:05:00 EDT, Height/Length Dosing, 103.7, kg, 08/28/20 12:05:00 EDT, Weight Dosing Start Date: 08/28/20 Status: OrderedcloNIDine hydrochloride 0.2 mg oral tablet (20 sources)Central alpha-2 Adrenergic AgonistStart: 17-80-8339lcqu 0.1 mg by mouth twice dailyclonidine 0.1 mg, Oral, BID, Refills(s) 0, High blood pressure Start Date: 01/09/19 Status: OrderedStart: 01-09-2019 End: 29-53-3672Vjxjbdkz 0.2 mg Tab 0.2 mg = 1 tab(s), Tab, Oral, Start date 04/18/25 9:00:00 AM EDT, 04/16/25 7:30:00 EDT Start Date: 04/18/25 Stop Date: 04/18/25 Status: Completed Repeat number: 1labetalol 5 mg/mL IV Eda (1 source)Start: 04-14-2025 End: 83-93-3667erxxpicpi 5 mg/mL IV Eda 5 mg = 1 mL, Injection, IV Push, q15min PRN Other (see comment), Routine, Start date 04/14/25 9:58:00 PM EDT, 04/14/25 21:58:00 EDT Start Date: 04/14/25 Stop Date: 04/16/25 Status: Discontinued Repeat number: 1psyllium 525 mg oral capsule (20 sources)Start: 48-21-6949cloj 8 capsules by mouth once dailyMetamucil 525 mg oral capsule 1,050 mg = 2 cap(s), Oral, Daily, Take 2 hour apart from the other medications with at least 8 ounces of water, # 160 cap(s), Refills(s) 1, Pharmacy: [facility]/pharmacy #[id number],185, cm, 08/28/20 12:05:00 EDT, Height/Length Dosing, [...] (1 source)Abdominal pain; Translations: [Unspecified abdominal pain]Onset: 69-86-4157HlyzdexqKupxa cerebrovascular disease (1 source)Cerebral infarction; Translations: [Cerebral infarction, unspecified] Onset: 48-01-7395TkenvqeWczoj cerebrovascular disease (1 source)Acute cerebrovascular diseaseOnset: 32-14-3001Acufcwk disorders (2 sources)Anxiety disorder, unspecified; Translations: [F41.9]Onset: 04-18-2025 ChronicAsthma (19 sources)Katynw52-06-8588KbkiikoVazddpo dysrhythmias (6 sources)Unspecified atrial fibrillation; Translations: [Cardiac arrhythmia, unspecified]Onset: 57-52-9952QqjdaouTppielq dysrhythmias (2 sources)Palpitations; Translations: [Palpitations]Onset: 34-26-6720Aozsrzmr Chronic kidney disease (1 source)Chronic kidney disease; Translations: [Chronic kidney disease, unspecified]Onset: 33-55-2891DnneqckDvvteox kidney disease (8 sources)Chronic kidney disease; Translations: [CHRONIC KIDNEY DISEASE STAGE 3B]Onset: 13-80-7057Cvnezbwalr disorders (4 sources)Left bundle-branch block, unspecified; Translations: [Left bundle- branch block, unspecified]Onset: 74-79-4029AlztiffCqmmkgapeu heart failure; nonhypertensive (5 sources)Heart failure; Translations: [Heart failure, unspecified]Onset: 88-16-4163RpgwmaxKixhtdgs atherosclerosis and other heart disease (6 sources)Unstable angina; Translations: [Chronic ischemic heart disease, unspecified]Onset: 67-77-5859TngdbfzDnvhyhxsmw and other anemia (1 source)Anemia, unspecified; Translations: [ANEMIA UNSPECIFIED]Onset: 68-92-6104GccnkypbLdbckpns mellitus with complications (18 sources)Type 2 diabetes mellitus with hyperglycemia; Translations: [Type 2 diabetes mellitus with diabetic chronic kidney disease]Onset: 08-27-2022 13-61-3020WmhwdmyFdczkhfd mellitus without complication (20 sources)Diabetes mellitus; Translations: [Type 2 diabetes mellitus without complications]Onset: 294644-42-3409NjpzfyuMppahfflo of lipid metabolism (6 sources)Hyperlipidemia, unspecified; Translations: [Mixed hyperlipidemia] Onset: 87-04-7324LwklhyzIxmqsjdxynjgnz and diverticulitis (18 sources)Diverticula of intestine; Translations: [Diverticulosis of intestine, part unspecified, without perforation or abscess without bleeding] Onset: 02-10-9156TxofeduInauxhkjj hypertension (5 sources)Essential (primary) hypertension; Translations: [ESSENTIAL PRIMARY HYPERTENSION]Onset: 59-51-4363YxjxruwUjqhtjglwvqpf symptoms and ill-defined conditions (4 sources)Post-void dribbling; Translations: [Post-micturition incontinence ] Onset: 71-82-4621PvfiezxOtpoeytwjfqlw symptoms and ill-defined conditions (18 sources)Retention of urine; Translations: [Retention of urine, unspecified] Onset: 95-78-5564BqmnvdmxUlhii valve disorders (15 sources)Nonrheumatic aortic (valve) stenosis; Translations: [Rheumatic tricuspid insufficiency]Onset: 75-00-6953IwlezlcJdguvbygxhy (18 sources)Hemorrhoids; Translations: [Unspecified hemorrhoids]Onset: 70-03-2282YosxgrkrDonsmkflomk of prostate (15 sources)Benign prostatic hypertrophy with outflow obstruction; Translations: [Benign prostatic hyperplasia with lower urinary tract symptoms]Onset: 03-53-4876NiammarPztixunwjyzk with complications and secondary hypertension (4 sources)Hypertensive chronic kidney disease with stage 1 through stage 4 chronic kidney disease, or unspecified chronic kidney disease; Translations: [Hypertensive urgency ]Onset: 99-23-9805JieaciiOqjqjjdcjgvb conditions of male genital organs (11 sources)Balanitis; 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]Onset: 25-17-8277QixuxufXsmd effects of cerebrovascular disease (20 sources)Sequelae of cerebral infarction; Translations: [Unspecified sequelae of cerebral infarction]Onset: 612463-08-8974AwcgqukJbrnqkx (12 sources)Pain in toe; Translations: [Tinea unguium]56-69-9431XnealkaqGnbpeg and vomiting (12 sources)Nausea; Translations: [Nausea]Onset: 93-12-7868WdbmalxnItrkwgdrz of unspecified nature or uncertain behavior (1 source)Neoplastic disease; Translations: [Neoplasm of unspecified behavior of bone, soft tissue, and skin]68-72-3844MgezweezZfgfwrkoyzn chest pain (2 sources)Chest pain, unspecified; Translations: [Chest pain, unspecified] Onset: 20-99-6660WogwsxvcCgllnhinyhw deficiencies (2 sources)Vitamin D deficiency, unspecified; Translations: [Vitamin D deficiency, unspecified]Onset: 97-64-0474YkrfhvvWuuqymrrsto deficiencies (12 sources)Cobalamin deficiency; Translations: [Deficiency of other specified B group vitamins]Onset: 123265-79-1783LennnovaIclhbhzek or stenosis of precerebral arteries (20 sources)Bilateral stenosis of carotid arteries; Translations: [Occlusion and stenosis of bilateral carotid arteries]Onset: 906256-53-8919TdhrbdpVijjy aftercare (3 sources)Long-term current use of anticoagulant; Translations: [remote computer terminal operator (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) use of anticoagulants]Onset: 76-66-6591GrpvwoozMzosw aftercare (1 source)Long-term current use of drug therapy; Translations: [Other penitentiary (current) drug therapy]Onset: 54-24-6231TttltyvsXaqsf and unspecified benign neoplasm (20 sources)History of polyp of colon; Translations: [Personal history of colonic polyps]Onset: 73-89-1089KxdptigoDeldg and unspecified benign neoplasm (20 sources)Polyp of colon; Translations: [Polyp of colon]Onset: 06-09-2022 78-08-5812VsubtkoxHywab and unspecified benign neoplasm (2 sources)Melanocytic nevus of trunk; Translations: [Melanocytic nevi of trunk] 16-26-3645YnimwnfqUxcij circulatory disease (2 sources)Personal history of transient ischemic attack (TIA), and cerebral infarction without residual deficits; Translations: [Personal history of transient ischemic attack (TIA), and cerebral infarction without residual deficits]Onset: 93-09-5156SatufmlgQvpiz connective tissue disease (16 sources)Pain in right foot; Translations: [Pain in right foot]09-08-2024 EpisodicOther diseases of bladder and urethra (3 sources)Detrusor overactivity; Translations: [Overactive bladder]Onset: 65-75-8103NuxwpssVjwch diseases of bladder and urethra (8 sources)Overactive wxodvzz37-18-5594ArvxgupJvdqx diseases of kidney and ureters (2 sources)Urinary tract obstruction; Translations: [Other obstructive and reflux uropathy]Onset: 69-74-6610YggebjdaHbqaz gastrointestinal disorders (19 sources)Chronic constipation with xumaiwvi47-98-9761LsksoytoXzozd gastrointestinal disorders (4 sources)Other fecal abnormalities; Translations: [OTHER FECAL ABNORMALITIES] Onset: 59-99-4704AtcmrwihQiake gastrointestinal disorders (18 sources)Urgent desire for stool; Translations: [Fecal urgency]Onset: 14-21-4892SblcdlfiNojld gastrointestinal disorders (2 sources)Abnormal feces; Translations: [Other fecal abnormalities]Onset: 42-09-6699WzbsifotJstdl gastrointestinal disorders (16 sources)Loose sitwk78-29-8154NtnzufloBckxb gastrointestinal disorders (14 sources)Abdominal wind pain; Translations: [Gas pain]Onset: 06-10-2023 EpisodicOther gastrointestinal disorders (2 sources)Constipation, unspecified; Translations: [Constipation, unspecified] Onset: 84-10-5906KsytvedmJdikm gastrointestinal disorders (11 sources)Xlzjqduhnwvc20-71-5534QepcjnecTkalx gastrointestinal disorders (1 source)Other constipation; Translations: [Other constipation]Onset: 49-00-1159PdzvqnxhLrfbr hereditary and degenerative nervous system conditions (20 sources)Essential tremor; Translations: [Essential tremor]Onset: 01-07-2024 28-69-6201MjcmqbiYhlha male genital disorders (11 sources)Acquired buried penis; 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]Onset: 96-18-1805MuxzfgeGspzb nervous system disorders (20 sources)Polyneuropathy; Translations: [Polyneuropathy, unspecified]Onset: 344118-65-0886JviifmoJiwxg skin disorders (3 sources)Actinic keratosis; Translations: [Actinic keratosis]08-24-2024 EpisodicOther skin disorders (3 sources)Lentiginosis; Translations: [Other melanin hyperpigmentation] 66-12-0423QawreynsTmabb skin disorders (3 sources)Seborrheic keratosis; Translations: [Other seborrheic keratosis] 83-32-3915BxllinfqJqwk-; endo-; and myocarditis; cardiomyopathy (except that caused by tuberculosis or sexually transmitted disease) (1 source)Pericardial effusion - noninflammatory; Translations: [Other pericardial effusion (noninflammatory)]Onset: 44-50-5737YudmlexkMjvjkfohu; thrombophlebitis and thromboembolism (1 source)History of thromboembolism of vein; Translations: [Personal history of other venous thrombosis and embolism]Onset: 88-91-7208VpfcfsumYwntozea; pneumothorax; pulmonary collapse (2 sources)Pleural effusion, not elsewhere classified; Translations: [Pleural effusion, not elsewhere classified]Onset: 72-95-4227ZlserfxvVnolqrxkv heart disease (4 sources)Pulmonary hypertension, unspecified; Translations: [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 disease]Onset: 21-83-4145KmfejdsEwlglubh codes; unclassified (1 source)Sleep apnea, unspecified; Translations: [SLEEP APNEA UNSPECIFIED] Onset: 88-12-3463QkrnynfRvvhyhxk codes; unclassified (20 sources)Obstructive sleep apnea syndrome; Translations: [Obstructive sleep apnea (adult) (pediatric)]Onset: 732956-73-9340BwdfvquHvqknmwx codes; unclassified (7 sources)Family history of malignant neoplasm of digestive organ; Translations: [Family history of malignantneoplasm of digestive organs]Onset: 41-17-0169OlzowquwGfqaodcu codes; unclassified (19 sources)Family history of cancer of vbumh74-34-2335GojqwduvHkqbiwrc codes; unclassified (6 sources)Localized edema; Translations: [LOCALIZED EDEMA]Onset: 11-02-2022 EpisodicResidual codes; unclassified (1 source)Pain, unspecified; Translations: [Pain, unspecified]Onset: 02-15-2025 EpisodicUnclassified (4 sources)CHRN KIDNEY DISEASE STG 3 UNSP; Translations: [CHRN KIDNEY DISEASE STG 3 UNSP]Onset: 12-15-8165Ooivdwqnlycg (3 sources)CONTACT W/AND (SUSP) EXPOS COVID-19; Translations: [CONTACT W/AND (SUSP) EXPOS COVID-19]Onset: 70-19-0945Aqgdzoimitue (1 source)COUGH, UNSPECIFIED; Translations: [COUGH, UNSPECIFIED]Onset: 51-14-4671Vrzmyqvtczcd (11 sources)Finding of sensation of bvafilx59-11-2202Isecljwboshr (8 sources)Drug therapy yodmrsz96-96-1393Wjforhcoljgg (1 source)Other pericardial effusion (noninflammatory); Translations: [Other pericardial effusion (noninflammatory)]Onset: 61-64-4490Foozozzqlhiw (2 sources)Longstanding persistent atrial fibrillation; Translations: [Longstanding persistent atrial fibrillation]Onset: 71-30-9033Hnuda infection (16 sources)Verruca plantaris; Translations: [Plantar wart]18-06-9127Xvqyebph Viral infection (3 sources)COVID-19; Translations: [COVID-19]Onset: 07-18-2022 Past or Other Problems Problem ClassificationProblemDateDocumented DateEpisodic/ChronicAcute and unspecified renal failure (1 source)Acute kidney failure, unspecified; Translations: [ACUTE KIDNEY FAILURE UNSPECIFIED]Onset: 59-99-4890RavzzuokUeuxpepvo infection; unspecified site (1 source)Unspecified Escherichia coli [E. coli] as the cause of diseases classified elsewhere; Translations:[UNS E COLI CAUSE DX CLASS ELSEWHERE]Onset: 88-60-9477NbmmbvglUjoru and electrolyte disorders (5 sources)Hypo-osmolality and hyponatremia; Translations: [Hyperkalemia]Onset: 78-32-7852JuahyzinLaocjwd and fatigue (2 sources)Weakness; Translations: [Other fatigue]Onset: 12-83-9630NujeajagPpkla aftercare (1 source)[facility] (current) use of aspirin; Translations: [FCI CURRENT USE OF ASPIRIN]Onset: 53-49-6228XpvdzigwNlgos aftercare (1 source)[facility] (current) use of anticoagulants; Translations: [FCI CURRNT USE ANTICOAGULANTS]Onset: 74-77-2673WmhygeubOgxqf aftercare (1 source)Other penitentiary (current) drug therapy; Translations: [OTH PSYCHIATRIC CLINICAL NURSE SPECIALIST CURRENT DRUG THERAPY]Onset: 19-27-4160OiiamlkmNfxon circulatory disease (1 source)Other specified symptoms and signs involving the circulatory and respiratory systems; Translations:[OTH SPEC SX SIGNS INVLV CIRC RS]Onset: 00-55-1385AwslptdhGanql connective tissue disease (20 sources)Spasm of cervical paraspinous muscle; Translations: [Other muscle spasm]Onset: 011788-25-8508UlyknlfiIfwja connective tissue disease (20 sources)Neurogenic pain; Translations: [Neuralgia and neuritis, unspecified] Onset: 832792-46-2813TbujteruBxvnt connective tissue disease (2 sources)Pain of toes of bilateral feet; Translations: [Pain in right toe(s)] 34-07-8747ZwqadomlCntva connective tissue disease (2 sources)Other symptoms and signs involving the musculoskeletal system; Translations: [Other symptoms and signs involving the musculoskeletal system] Onset: 01-30-6074LdxcmjsgCmaig lower respiratory disease (2 sources)Shortness of breath; Translations: [Shortness of breath]Onset: 64-33-1805QdwefauwKlrcz nervous system disorders (12 sources)Tremor; Translations: [Tremor, unspecified]Onset: 01-07-2024 11-06-4046FngmybunJpgiz screening for suspected conditions (not mental disorders or infectious disease) (3 sources)Raised prostate specific antigen; Translations: [Elevated prostate specific antigen [PSA]]Onset: 71-65-7287QnecqswxIbbcq skin disorders (6 sources)Asteatosis cutis; Translations: [Xerosis cutis]54-85-0247Chpwcvvg Residual codes; unclassified (1 source)Edema, unspecified; Translations: [EDEMA UNSPECIFIED]Onset: 08-27-2022 EpisodicUnclassified (20 sources)Parkinson's disease; Translations: [Parkinson disease]Onset: 01-07-2024 Resolved: 021838-07-5623QhgjumdOyxdbeezxmos (1 source)CHRN KIDNEY DISEASE STG 3 UNSP; Translations: [CHRN KIDNEY DISEASE STG 3 UNSP]Onset: 47-80-5429Qptlrgrsbmox (1 source)CONTACT W/AND (SUSP) EXPOS COVID-19; Translations: [CONTACT W/AND (SUSP) EXPOS COVID-19]Onset: 99-00-2501Arirwwxwngkh (1 source)Other pericardial effusion (noninflammatory); Translations: [Other pericardial effusion (noninflammatory)]Onset: 17-75-6392Wfmkvqa tract infections (1 source)Urinary tract infection, site not specified; Translations: [UTI SITE NOT SPECIFIED]Onset: 24-42-6459Xtenqhsx Results Test NameValueInterpretationReference RangeFacilityCryotherapy, skin lesionon 12-79-2617IIVH HealthcareLesion biopsyon 75-57-3718Ydoc of biopsy: tangential Informed consent: discussed and [...] taken yes Amount of lidocaine used: 0.5 ccNOMS [facility]36on Patient's called to make you aware that during PT/OT, they have noted him being more SOB than usual. The nurse at the SNF told me he has no edema. She states when she walks with him 100+ feet to the dining room he is not SOB. I did confirm he's taking furosemide 40mg daily. I told the nurse that according to our notes, he should be taking furosemide 40mg bid. Nurse said she thinks he may have UTI and Dr. Youssef is taking care of this. You're booked out at least a month. Is there something you'd like me to do for him? Please advise. Thanks.Normal [facility] Cultureon 03-63-2507Focyhlym identified Cx Nom (U)<9,000 colonies/ml mixed bacterial skin contaminants 2 Days PERFORMED BY: [place] [address] PATHOLOGIST DYE COLORIST FORMULATOR JEREMY BEATTY M.D.NormalMease Countryside Hospital Physician GroupComment on above: Performed By: #### CUU #### [address]36on [id number] authorization request for Savaysa 30mg. Prior authorization processed and submitted to patient's insurance, awaiting determination from insurance in response to medication coverage. Cover My Meds [place]# [id number]t General Health CenterTelephoneon [id number] KiritNadir L 1940 M Date Provider Department Center 08/03/2025 [facility] Family History Problem Relation Age of Onset Coronary artery disease Father Family Status - Relation Status Age at Mother Father DeceasedNormalUniversSouthwest General Health CenterFollow-Upon 08-01-2025 Follow-[id number] yumikoNadir armstrong Joy 1940 M Date Provider Department Center 08/01/2025 321-RUTHIE LINDA [facility] NEPHRO Comprehensiv Family History Problem Relation Age of Onset Coronary artery disease Father Family Status - Relation Status Age at Mother Father Level of Service:17848 IN OFFICE/OUTPATIENT ESTABLISHED MOD MDM 30 MIN Reason for Visit and Comments: Electrolyte Disorders [542] Follow-up [034909] - CKDNormalUniversSouthwest General Health CenterOrders Onlyon 33-87-3833Trecyf [id number] Nadir Beth 1940 M Date Provider Department Center 07/31/2025 [id number], LEÓN MILKA Beckett Family History Problem Relation Age of Onset Coronary artery disease Father Family Status - Relation Status Age at Mother Father DeceasedNormalUniOur Lady of [facility]cy [facility]29on Addended by: HUONG JEAN on: 08/03/2025 08:37 AM Modules accepted: OrdersNormalUniOur Lady of Mercy HospitalDocumentationon [id number] Nadir Beth 1940 M Date Provider Department Center 07/30/2025 38463-FVCOIHUONG JEAN PHARMACO Medical Pavi Family History Problem Relation Age of Onset Coronary artery disease Father Family Status - Relation Status Age at Mother Father Reason for Visit and Comments: Pharmacist Consult - Referral [Other][facility] Office Visiton 04-11-2488Crtnep-up [id number] Nadir Beth 1940 M Date Provider Department Center 07/30/2025 87812-UIQHUJRUY SULLIVAN Family History Problem Relation Age of Onset Coronary artery disease Father Family Status - Relation Status Age at Mother Father Level of Service:50145 IN OFFICE/OUTPATIENT ESTABLISHED MOD MDM 30 MIN Reason for Visit and Comments: Follow-up [859792] - 1 month follow up. Patient is now in assisted living and they are requesting a check up Valve Disorder [6562] - Aortic valve Atherosclerosis of renal artery [Other] Coronary Artery Disease [187] Bradycardia [670630] Hypertension [658468] Congestive Heart Failure [127] Pulmonary Hypertension [818] Hyperlipidemia [182] Hypertensive heart desease chronic kidney failure stage 1 t [Other] Atrial Fibrillation [80][facility] 45-48-9239Fbibmn-up [id number] Nadir Beth 1940 M Date Provider Department Center 06/18/2025 Parris-CLARIBEL CISNEROS MILKA Dominguez Sujit Family History Problem Relation Age of Onset Coronary artery disease Father Family Status - Relation Status Age at Mother Father Level of Service:60275 IN OFFICE/OUTPATIENT ESTABLISHED MOD [facility] 30 [facility] HospitalOrders Onlyon 26-29-4546Infung [id number] Nadir Beth 1940 M Date Provider Department Center 06/14/2025 [id number], HISTORICAL MILKA Beckett Family History Problem Relation Age of Onset Coronary artery disease Father Family Status - Relation Status Age at Mother Father DeceasedNormalUniOur Lady of Mercy HospitalUrology Office/Clinic Noteon 05-09-1535Pycbtye Office/Clinic NoteUrology Office/Clinic Note Chief Complaint pt [...] CBI initiated. Palomares was removed on 01/07/24. Taking Flomax 0.4mg qd which he [...] Given Patient Refuses SARS-C (more content not included)...[facility] CenterComment on above:Result Comment: Electronically Signed By: LU OLMEDO PA-C\.br\Date and Time Signed: 06/12/2513:19 EDTAmbulatory Visit Summaryon [...] MARQUIS LOUISE MD Where: [facility] [address], [address] [place] [address]- Medications What How Much When Why Instructions [...] Contact prescribing physician i (more content not included)...[facility]36on [phone] called patient lvm to contact office back to reschedule appointment with .[facility] 35-32-7513Femony- up [id number] Nadir Beth 1940 M Date Provider Department Center 05/28/2025 RUY ESQUIVEL Family History Problem Relation Age of Onset Coronary artery disease Father Family Status - Relation Status Age at Mother Father Level of Service:39199 IN OFFICE/OUTPATIENT ESTABLISHED MOD MDM 30 [facility] HospitalOrders Onlyon 96-47-4698Bpxjwk [id number] Nadir Beth 1940 M Date Provider Department Center 05/28/2025 RUY ESQUIVEL Family History Problem Relation Age of Onset Coronary artery disease Father Family Status - Relation Status Age at Mother Father DeceasedCox Walnut LawnalUPremier Health [facility]30on [id number] Case Management Update Barriers to Discharge: Patient is to discharge to care home facility [facility] today. Stretcher transport has been established with [facility], crab picker time 1934. Diet: Dietary Orders (From [...] Request Once Comments: Omelet with green pepper, ivorian cheese and onion Wheat toast Sausage Raisin bran Milk Decaf coffee 05/17/25 0802 05/16/25 1553 Special Kitchen Request Once Comments: Howell burger with cheese On the side: tomato, [...] Request Once Comments: Omelet with green pepper, ivorian cheese and onion, 1 slice wheat toast, [...] Reason for OT? Answer: gait abnormality 05/10/25 0411NormalUniversSouthwest General Health Center30The patient is Moderately Stable - Low [...] Goal: Maintains hematologic stability Outcome: ProgressingNormalUniversity of [facility] WITH AUTO DIFFERENTIALon 13-30-3316Hgzghuwkety distribution width (RBC) [Ratio]19.8 %High 11.5-15.0UnCorey HospitalComment on above:Performed By: #### [id number] #### [facility] ([facility]) [address] [place], [place] [address]BLRLQNKCTLE MEAN CORPUSCULAR HEMOGLOBIN CONCENTRATION (G/DL) BY EOYUXQFWO98.4 g/dLLow32.0-35.0UnCorey HospitalComment on above:Performed By: #### [id number] #### [facility] ([facility]) [address] [place], [place] [address]Mzumltvgqg (Bld) [Volume fraction]34.2 %Low39.0-50.0UnCorey HospitalComment on above:Performed By: #### [id number] #### [facility] ([facility]) [address] [place], [place] [address]Gwoglospfc (Bld) [Mass/Vol]10.4 g/dLLow13.0-17.0UnCorey HospitalComment on above:Performed By: #### [id number] #### [facility] ([facility]) [address] [place], [place] [address]CPG (RBC) [Entitic mass]25.6 pgLow27.0-33.0UnCorey HospitalComment on above:Performed By: #### [id number] #### [facility] ([facility]) [address] [place] [address]JOG (RBC) [Entitic vol]84.2 mEPffuoq76.0-98.0UnCorey HospitalComment on above:Performed By: #### [id number] #### [facility] ([facility]) [address] [place] [address]NEUQ (PER 100 WBCS) BY AUTOMATED COUNT0.0 %Sacwdi5NeybdtrkneCorey HospitalComment on above:Performed By: #### [id number] #### [facility] ([facility]) [address] [place] [address]SCZIXBVFT (10*3/UL) IN BLOOD AUTOMATED TFLFM543 10*3/uLNormal 150-400UnCorey HospitalComment on above:Performed By: #### [id number] #### [facility] ([facility]) [address] [place] [address]YBL (Bld) [#/Vol]4.06 10*6/uLLow4.20-5.70UnCorey HospitalComment on above:Performed By: #### [id number] #### [facility] ([facility]) [address] [place] [address]MEG (Bld) [#/Vol]12.14 10*3/uLHigh4.00-10.60UnCorey HospitalComment on above:Performed By: #### [id number] #### [facility] ([facility]) [address] [facility] [place], [place] [address]DPTKMATVSADYE METABOLIC PANELon 93-27-9515NYGCYQB AMINOTRANSFERASE (SGPT) (U/L) IN SER/PLAS<7Wqu8-32FttzoamlzzCorey HospitalComment on above:Performed By: #### [id number] ####[facility] ([facility])[address] [place], [place] [address]Dwfnijb [Mass/Vol]3.4 g/dLLow3.5-5.7 [facility] HospitalComment on above:Performed By: #### [id number] ####[facility] ([facility])[address] [place], [place] [address]ZHZ [Catalytic activity/Vol]68 U/UWblxdo31-844UeuilnxinlCorey HospitalComment on above:Performed By: #### [id number] ####[facility] ([facility])[address] [place], [place] [address]Sjigv gap [Moles/Vol]15 mmol/LNormal7-20UnCorey HospitalComment on above:Performed By: #### [id number] ####[facility] ([facility])[address] [place], [place] [address]VEJ [Catalytic activity/Vol]13 U/L Lrgugv75-15KdxuzdrmyjCorey HospitalComment on above:Performed By: #### [id number] ####[facility] ([facility])[address] [place] [address] Bilirubin [Mass/Vol]0.5 mg/dLNormal0.3-1.0UnCorey Hospital Comment on above:Performed By: #### [id number] ####[facility] ([facility])[address] [place], [place] [address]Qhohcbw [Mass/Vol]8.6 mg/dLNormal8.6-10.3UnCorey HospitalComment on above:Performed By: #### [id number] ####[facility] ([facility])[address] [place], [place] [address]Thknucxd [Moles/Vol]104 mmol/DAkfbkf06-212LtwwniowwbCorey HospitalComment on above:Performed By: #### [id number] ####[facility] ([facility])[address] [place] [address] CO2 [Moles/Vol]25 mmol/ZPbmvvl92-61SawhxvwjzlCorey HospitalComment on above:Performed By: #### [id number] ####[facility] ([facility])[address] [place] [address]Qkdofowvpi [Mass/Vol]1.73 mg/dLHigh0.70-1.30UnCorey HospitalComment on above:Performed By: #### [id number] ####[facility] ([facility])[address] [place] [address]FPEZKWAPLH FILTRATION RATE ML/MIN/1.73 SQ M.JJLUFMHIS39.0 mL/min/1.73m*2Low>60.0UnCorey HospitalComment on above:Result Comment: [facility]???s estimated glomerular filtration rate (eGFR) will [...] anyone group of individuals.Performed By: #### [id number] ####[facility] ([facility])[address] [place] [address]Zksdvgi [Mass/Vol]239 mg/xBWasz70-482MncxewyjvlCorey HospitalComment on above:Performed By: #### [id number] ####[facility] ([facility])[address] [place] [address]Rrwnhubjx [Moles/Vol]3.9 mmol/LNormal3.5-5.1UnCorey HospitalComment on above:Performed By: #### [id number] ####[facility] ([facility])[address] [place] [address]Oqgxyfi [Mass/Vol]6.3 g/dLNormal 6.0-8.3UnCorey HospitalComment on above:Performed By: #### [id number] ####[facility] ([facility])[address] [place] [address]Zxkhvf [Moles/Vol]140 mmol/EBwwyvg598-592TtkaocdzalCorey HospitalComment on above:Performed By: #### [id number] ####[facility] ([facility])[address] [place], [place] [address]Ztqh nitrogen [Mass/Vol]38 mg/dLHigh7-25UnCorey HospitalComment on above:Performed By: #### [id number] ####[facility] ([facility])[address] [place], [place] [address]PWWI NITROGEN/CREATININE (MASS RATIO) IN SER/PLAS22.0NormalUniversSouthwest General Health CenterComment on above: Performed By: #### [id number] ####[facility] ([facility])[address] [place], [place] [address]CKsv 85-94-2701FS Attestation signed by Nikolas Gonzalez MD at [...] was admitted as a direct transfer from [facility] on 05/10/2025 for acute on chronic heart failure. 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 He presented to the ED on the advice of his physician following an increase in lower extremity edema with associated labs showing a BNP 6200. In the [facility] ED he was found to have pulmonary vascular congestion with right sided pleural effusion on chest x-ray, and found to be hypertensive at 190/68, and EKG showed A-fib, he was initially managed medically with lasix and antihypertensives prior to transfer. Patient follows up with Dr. Bland who had scheduled right heart cath on 05/10/2025. At [facility] echo was performed which was [...] Admission: Cardiology and cardiothoracic surgery Dear MD Mikael Nadir is advised to follow up with you within 1-2 weeks. Items to follow up in ambulatory setting: CHEST X-RAY in one week Follow-up with: Cardiology and Pulmonary Scheduled appointments: Future Appointments Date Time Provider Department Center 05/28/2025 2:20 PM Ruy Sullivan CNP CARD [facility] 06/15/2025 10:30 AM [facility] CV ECHO ROOM 2 [facility] Heart[facility] 06/18/2025 11:30 AM Claribel Cisneros MD [...] known as: Lasix glimepi (more content not included)...NormalUnCorey Hospital MANUAL DIFFERENTIALon 26-39-2357XZWONFMZI (10*3/UL) IN BLOOD BY CALCULATION0.05 10*3/uLNormal0.00-0.20UnCorey HospitalComment on above: Performed By: #### [id number] #### [facility] ([facility]) [address] [place], [place] [address]WOUEPCKEL/100 LEUKOCYTES IN BLOOD BY AUTOMATED COUNT0.4 %Normal 0.0-1.0UnCorey HospitalComment on above:Performed By: #### [id number] #### [facility] ([facility]) [address] [place], [place] [address]JSNPOJAPMLT (10*3/UL) IN BLOOD BY CALCULATION0.05 10*3/uLNormal 0.00-0.50UnCorey HospitalComment on above:Performed By: #### [id number] #### [facility] ([facility]) [address] [place], [place] [address]LAPXKOPOGQC/100 LEUKOCYTES IN BLOOD BY AUTOMATED COUNT0.4 % Normal0.0-6.0UnCorey HospitalComment on above:Performed By: #### [id number] #### [facility] ([facility]) [address] [place], [place] [address]CKBSHMHW GRANULOCYTES (10*3/UL) IN BLOOD BY CALCULATION0.07 10*3/uLNormal0.00-0.20UnCorey HospitalComment on above: Performed By: #### [id number] #### [facility] ([facility]) [address] [place], [place] [address]WAEWQAXL GRANULOCYTES/100 LEUKOCYTES IN BLOOD BY AUTOMATED COUNT 0.6 %Normal0.0-1.0UnCorey HospitalComment on above:Performed By: #### [id number] #### [facility] ([facility]) [address] [place], [place] [address]WTQPDZWFLLN (10*3/UL) IN BLOOD BY CALCULATION0.87 10*3/uLLow 1.20-4.00UnCorey HospitalComment on above:Performed By: #### [id number] #### [facility] ([facility]) [address] [place], [place] [address]CUZIDWDLPNF/100 LEUKOCYTES IN BLOOD BY AUTOMATED COUNT7.2 %Low 20.0-45.0UnCorey HospitalComment on above:Performed By: #### [id number] #### [facility] ([facility]) [address] [place] [address]GQXOWFBXL (10*3/UL) IN BLOOD BY CALCUATION1.92 10*3/uLHigh 0.10-1.00UnCorey HospitalComment on above:Performed By: #### [id number] #### [facility] ([facility]) [address] [place], [place] [address]KAHRJBZIN/100 LEUKOCYTES IN BLOOD BY AUTOMATED COUNT15.8 %High 5.0-12.0UnCorey HospitalComment on above:Performed By: #### [id number] #### [facility] ([facility]) [address] [place], [place] [address]EBNYSECOTYO (10*3/UL) IN BLOOD BY CALCULATION9.2 10*3/uLHigh 1.6-7.6UnCorey HospitalComment on above:Performed By: #### [id number] #### [facility] ([facility]) [address] [place], [place] [address]IKDJYZSJQFT/100 LEUKOCYTES IN BLOOD BY AUTOMATED COUNT75.6 %High 40.0-72.0UnCorey HospitalComment on above:Performed By: #### [id number] #### [facility] ([facility]) [address] [place], [place] [address]ZBJKBZKDrc 75-09-8565EPIYLWJTSetnkc [facility]UnCorey HospitalNURSNOTEPatient Name: Nadir Beth : 1940 Primary [...] Liz Joshi RN Rapid Response Team Nurse [phone] 05/17/2025 10:35 [facility]NURSNOTEPatient Name: Nadir Beth : 1940 Primary Care [...] time, but encouraged to reach out to [employer] if anything changes. Marc Araiza RN Rapid Response Team Nurse [phone] 05/17/2025 2:32 AMNormalUnCorey HospitalPOCT GLUCOSE METER UNSOLICITED RESULTSon 39-06-3638Lsraiob [Mass/Vol]331 mg/wVZvju73-479AyimwuxpuuCorey HospitalComment on above:Order Comment: Waived Testing in the ED is performed under the ED CLIA certificate #[id number].Result Comment: [email or web address] Performed By: #### [id number] ####[facility] ([facility])[address] [place], [place] [address]Tpnjrxo [Mass/Vol]310 mg/eLWnsu35-476FzvdqfczlyCorey HospitalComment on above:Order Comment: Waived Testing in the ED is performed under the ED CLIA certificate #[id number].Result Comment: [email or web address] Performed By: #### [id number] ####[facility] ([facility])[address] [place] [address]Bdmdmzv [Mass/Vol]235 mg/uOOzkh95-668GyhkeefgztAultman Orrville HospitalComment on above:Order Comment: Waived Testing in the ED is performed under the ED CLIA certificate #[id number].Result Comment: [email or web address] Performed By: #### [id number] ####[facility] ([facility])[address] [place] [address]ie [id number] patient is Moderately Stable - Low risk [...] and behaviors that affect risk of falls Rozel fall precautions as indicated by assessment Educate [...] - Adult Goal: Skin integrity remains intact 05/16/2025 2259 by Cee Watkins RN Outcome: Progressing Flowsheets (Take (more content not included)...[facility]30Daily Case Management Update Barriers to Discharge: Pending clinical course and clearance. POD #1 TAVR. Needs PT & OT to reevaluate to make sure patient can still return home. Slight ARTUR. ECHO today. Blood cultures pending. Diet: Dietary Orders (From admission, onward) Start Ordered 05/16/25 1553 Special Kitchen Request Once Comments: Howell burger with cheese On the side: tomato, [...] Request Once Comments: Omelet with green pepper, ivorian cheese and onion, 1 slice wheat toast, [...] Reason for OT? Answer: gait abnormality 05/10/25 0411NormalUniversOhioHealth [facility] 82-69-3423CRFUCMXWC PARTIAL THROMBOPLASTIN TIME IN PPP BY COAGULATION ASSAY77.8 SecondsHigh 25.0-35.0UnCorey HospitalComment on above:Result Comment: Clinical significance of the APTT is questionable in the presence of heparin. Performed By: #### [id number] #### [facility] ([facility]) [address] [place], [place] [address]UYWAHPFJD PARTIAL THROMBOPLASTIN TIME IN PPP BY COAGULATION ASSAY63.8 ApwiehhMwqc59.0-35.0UnCorey HospitalComment on above:Result Comment: Clinical significance of the APTT is questionable in the presence of heparin.Performed By: #### [id number] #### [facility] ([facility]) [address] [place], [place] [address]NSVUT METABOLIC PANELon 35-74-9195Txago gap [Moles/Vol]19 mmol/L Normal7-20UnCorey HospitalComment on above:Performed By: #### [id number] #### [facility] ([facility]) [address] [place], [place] [address]Kytvizq [Mass/Vol]8.6 mg/dLNormal8.6-10.3UnCorey HospitalComment on above:Performed By: #### [id number] #### [facility] ([facility]) [address] [place], [place] [address]Ffyodauq [Moles/Vol]103 mmol/RHfhfbd26-821OskqzwpufhCorey HospitalComment on above:Performed By: #### [id number] #### [facility] ([facility]) [address] [place] [address]KV8 [Moles/Vol]22 mmol/TAruknj86-73QjuysuwrqcCorey HospitalComment on above:Performed By: #### [id number] #### [facility] ([facility]) [address] [place] [address]Dfanwknpgk [Mass/Vol]1.71 mg/dLHigh0.70-1.30UnCorey HospitalComment on above:Performed By: #### [id number] #### [facility] ([facility]) [address] [place] [address]YVOPROFMQL FILTRATION RATE ML/MIN/1.73 SQ M.INWPTSEFK34.5 mL/min/1.73m*2Low>60.0UnCorey HospitalComment on above:Result Comment: [facility]???s estimated glomerular filtration rate (eGFR) will [...] group of individuals.Performed By: #### [id number] #### [facility] ([facility]) [address] [place] [address]Nhsrcci [Mass/Vol]222 mg/pGMdbu45-125BbahlhnkmwCorey HospitalComment on above:Performed By: #### [id number] #### [facility] ([facility]) [address] [place] [address]Lkriroyln [Moles/Vol]4.2 mmol/LNormal3.5-5.1UnCorey HospitalComment on above:Performed By: #### [id number] #### [facility] ([facility]) [address] [place] [address]Gbqupw [Moles/Vol]140 mmol/JOupciu625-820YzvgwjgeuaCorey HospitalComment on above:Performed By: #### [id number] #### [facility] ([facility]) [address] [place], [place] [address]Vhxj nitrogen [Mass/Vol]41 mg/dLHigh7-25UnCorey HospitalComment on above:Performed By: #### [id number] #### [facility] ([facility]) [address] [place], [place] [address]NMBZ NITROGEN/CREATININE (MASS RATIO) IN SER/PLAS24.0Normal [facility] HospitalComment on above:Performed By: #### [id number] #### [facility] ([facility]) [address] [place], [place] [address]MYNTH CULTUREon 48-16-0806Syckgegy identified Cx Nom (Bld)No growth at 5 daysNormalUniOur Lady of Mercy HospitalComment on above:Order Comment: From a different site than #1.Performed By: #### [id number] ####[facility] ([facility])[address] [place], [place] [address]Uwiltkpmd By: #### [id number] #### [facility] ([facility]) [address] [place], [place] [address]MGKej 78-36-1940Bygrutfvcmq distribution width (RBC) [Ratio]19.5 %High11.5-15.0UnCorey HospitalComment on above:Performed By: #### [id number] #### [facility] ([facility]) [address] [place], [place] [address]UCBKVOUTFJO MEAN CORPUSCULAR HEMOGLOBIN CONCENTRATION (G/DL) BY VFUYJXTCR46.2 g/dLLow32.0-35.0UnCorey HospitalComment on above:Performed By: #### [id number] #### [facility] ([facility]) [address] [place], [place] [address]Hilflwxjbl (Bld) [Volume fraction]33.1 %Low39.0-50.0UnCorey HospitalComment on above:Performed By: #### [id number] #### [facility] ([facility]) [address] [place] [address]Evciveiood (Bld) [Mass/Vol]10.0 g/dLLow13.0-17.0UnCorey HospitalComment on above:Performed By: #### [id number] #### [facility] ([facility]) [address] [place] [address]WEI (RBC) [Entitic mass]25.4 pgLow27.0-33.0UnCorey HospitalComment on above:Performed By: #### [id number] #### [facility] ([facility]) [address] [place] [address]BZR (RBC) [Entitic vol]84.0 rICimgbo61.0-98.0UnCorey HospitalComment on above:Performed By: #### [id number] #### [facility] ([facility]) [address] [place] [address]XALIROTZU (10*3/UL) IN BLOOD AUTOMATED [id number] 10*3/uLNormal 150-400UnCorey HospitalComment on above:Performed By: #### [id number] #### [facility] ([facility]) [address] [place] [address]SAB (Bld) [#/Vol]3.94 10*6/uLLow4.20-5.70UnCorey HospitalComment on above:Performed By: #### [id number] #### [facility] ([facility]) [address] [place] [address]KUX (Bld) [#/Vol]14.93 10*3/uLHigh4.00-10.60UnCorey HospitalComment on above:Performed By: #### [id number] #### [facility] ([facility]) [address] [place] [address]Kygyov Onlyon 57-88-4224Cagtqe [id number] Nadir Beth 1940 Date Provider Department [place] 05/16/2025 [address]-QBMHGANPREM GILBERT C VASC LAB NE HeartVAS No family history on fileNormalUniversity of Methodist Charlton Medical CenterPOCT GLUCOSE METER UNSOLICITED RESULTSon 93-31-2996Ddiqsqn [Mass/Vol]374 mg/zNJzly52-922 [facility] HospitalComment on above:Order Comment: Waived Testing in the ED is performed under the ED CLIA certificate #[id number].Result Comment: [email or web address] By: #### [id number] #### [facility] ([facility]) [address] [place], [place] [address]Xpvuzds [Mass/Vol]292 mg/jSAabj66-907NuiokhimubCorey HospitalComment on above:Order Comment: Waived Testing in the ED is performed under the ED CLIA certificate #[id number].Result Comment: [email or web address] Performed By: #### [id number] #### [facility] ([facility]) [address] [place], [place] [address]Jifeuks [Mass/Vol]254 mg/cJWzoj68-619WefgqralneCorey HospitalComment on above:Order Comment: Waived Testing in the ED is performed under the ED CLIA certificate #[id number].Result Comment: [email or web address] Performed By: #### [id number] #### [facility] ([facility]) [address] [place], [place] [address]Ybrhuii [Mass/Vol]272 mg/nBHqtv12-181SjfqwahopqCorey HospitalComment on above:Order Comment: Waived Testing in the ED is performed under the ED CLIA certificate #[id number].Result Comment: [email or web address] Performed By: #### [id number] #### [facility] ([facility]) [address] [place], [place] [address]kc 14-20-409735Quufx Case Management Update Multidisciplinary rounds have been completed. Barriers to Discharge: Patient to go for TAVR Today. Discharge dispo: pending clinical course, Prior to Operation PT/OT rec Patient is able to return to prior living environment (Presents from SNF). Patient is from [facility], with tentative plan to return when medically ready. Diet: Dietary Orders (From admission, onward) Start Ordered 05/15/25 0001 Diet NPO Diet effective midnight Comments: Sips with medications Question: Reason for NPO: Answer: Operation/Procedure 05/14/25 1521 05/14/25 0631 Special Kitchen Request Once Comments: Omelet with green pepper, ivorian cheese and onion, 1 slice wheat toast, [...] Reason for OT? Answer: gait abnormality 05/10/25 0411NormalUniversSouthwest General Health Center30The patient is Moderately Stable - Low [...] the next 3 months Outcome: ProgressingNormalUniversity of [facility] 05-15-2025 ACTIVATED PARTIAL THROMBOPLASTIN TIME IN PPP BY COAGULATION ASSAY73.2 Seconds High25.0-35.0UnCorey HospitalComment on above:Result Comment: Clinical significance of the APTT is questionable in the presence of heparin. Performed By: #### [id number] #### [facility] ([facility]) [address] [place], [place] [address]BSFOVXDMA PARTIAL THROMBOPLASTIN TIME IN PPP BY COAGULATION ASSAY51.8 RzafbbeLloc39.0-35.0UnCorey HospitalComment on above:Result Comment: Clinical significance of the APTT is questionable in the presence of heparin.Performed By: #### [id number] #### [facility] ([facility]) [address] [place], [place] [address]UJJNE METABOLIC PANELon 31-09-1402Yaikq gap [Moles/Vol]16 mmol/L Normal7-20UnCorey HospitalComment on above:Performed By: #### [id number] #### [facility] [address] [place], [place] [address]Grbstgd [Mass/Vol]8.9 mg/dLNormal8.6-10.3UnCorey HospitalComment on above:Performed By: #### [id number] #### [facility] ([facility]) [address] [place], [place] [address]Ltljaivt [Moles/Vol]99 mmol/AJqunrb23-469CknkddmgwiCorey HospitalComment on above:Performed By: #### [id number] #### [facility] ([facility]) [address] [place], [place] [address]BS[address] [Moles/Vol]27 mmol/ZGbhlod86-05EsubymdkvxCorey HospitalComment on above:Performed By: #### [id number] #### [facility] ([facility]) [address] [place], [place] [address]Xnhedybmmw [Mass/Vol]1.61 mg/dLHigh0.70-1.30UnCorey HospitalComment on above:Performed By: #### [id number] #### [facility] ([facility]) [address] [place], [place] [address]PGMRJFMJJA FILTRATION RATE ML/MIN/1.73 SQ M.SWQJIHCHA31.4 mL/min/1.73m*2Low>60.0UnCorey HospitalComment on above:Result Comment: [facility]???s estimated glomerular filtration rate (eGFR) will [...] group of individuals.Performed By: #### [id number] #### [facility] ([facility]) [address] [place], [place] [address]Uauzknw [Mass/Vol]255 mg/oIDlvm32-310ChvfaqcikpCorey HospitalComment on above:Performed By: #### [id number] #### [facility] ([facility]) [address] [place], [place] [address]Tkfcujjdu [Moles/Vol]4.5 mmol/LNormal3.5-5.1UnCorey HospitalComment on above:Performed By: #### [id number] #### [facility] ([facility]) [address] [place], [place] [address]Pszffw [Moles/Vol]137 mmol/WNqyocj960-640SadbpknbujCorey HospitalComment on above:Performed By: #### [id number] #### [facility] ([facility]) [address] [place], [place] [address]Dwdz nitrogen [Mass/Vol]34 mg/dLHigh7-25UnCorey HospitalComment on above:Performed By: #### [id number] #### [facility] ([facility]) [address] [place], [place] [address]PMTO NITROGEN/CREATININE (MASS RATIO) IN SER/PLAS21.1Normal [facility] HospitalComment on above:Performed By: #### [id number] #### [facility] ([facility]) [address] [place] [place], [place] [address]MCOjy [id number] distribution width (RBC) [Ratio]19.0 %High11.5-15.0UnCorey HospitalComment on above:Performed By: #### [id number] #### [facility] ([facility]) [address] [place], [place] [address]SXUYLXPLDKI MEAN CORPUSCULAR HEMOGLOBIN CONCENTRATION (G/DL) BY SJJAYZVSU75.7 g/dLLow32.0-35.0UnCorey HospitalComment on above:Performed By: #### [id number] #### [facility] ([facility]) [address] [place], [place] [address]Wfnpzckswk (Bld) [Volume fraction]33.6 %Low39.0-50.0UnCorey HospitalComment on above:Performed By: #### [id number] #### [facility] ([facility]) [address] [place] [address]Rtsqzomgyo (Bld) [Mass/Vol]10.3 g/dLLow13.0-17.0UnCorey HospitalComment on above:Performed By: #### [id number] #### [facility] ([facility]) [address] [place] [place] [address]VBZ (RBC) [Entitic mass]25.2 pgLow27.0-33.0UnCorey HospitalComment on above:Performed By: #### [id number] #### [facility] ([facility]) [address] [place] [address]JYD (RBC) [Entitic vol]82.4 hIXopzqb73.0-98.0UnCorey HospitalComment on above:Performed By: #### [id number] #### [facility] ([facility]) [address] [place] [place] [address]MMMDAVIVC (10*3/UL) IN BLOOD AUTOMATED [id number] 10*3/uLNormal 150-400UnCorey HospitalComment on above:Performed By: #### [id number] #### [facility] ([facility]) [address] [place] [address]FRS (Bld) [#/Vol]4.08 10*6/uLLow4.20-5.70UnCorey HospitalComment on above:Performed By: #### [id number] #### [facility] ([facility]) [address] [place] [address]XGY (Bld) [#/Vol]12.04 10*3/uLHigh4.00-10.60UnCorey HospitalComment on above:Performed By: #### [id number] #### [facility] ([facility]) [address] [place] [address]FNrs [id number] Attestation signed by García Muir MD at [...] [facility] - 85 [facility] 1940 [id number] Date of Admission - 05/10/2025 2:37 AM History of Present Illness Nadir Beth is an 85 y.o. male with a PMH of HFpEF, paroxysmal A-fib on Xarelto, CVA, T2DM, hypertension, renal artery stenosis left renal stent, and hyperlipidemia who was admitted as a direct transfer from [place] on 05/10/2025 for acute on chronic heart failure. 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 He presented to the ED on the advice of his physician following an increase in lower extremity edema with associated labs showing a BNP 6200. In the [facility] ED he was found to have pulmonary vascular congestion with right sided pleural effusion on chest x-ray, and found to be hypertensive at 190/68, initially managed medically with lasix and antihypertensives prior to transfer. At [facility] echo was performed which was [...] 101 CO2 mmol/L 2 (more content not included)...[facility]HPH&[facility] reviewed. The patient was examined and there [...] his family members and they agreed to TAVR.[facility] CampusNURSNOTEon [id number] called to Karen OTERO on MICU.[facility] CampusOPNOTEon [id number] Operative Note Date: 05/15/2025 Location: [facility] (Cath) Name: Nadir Beth, : [...] the right common femoral artery using two 6-Niuean ProGlide devices. Angio-Seal vascular closure in the left common femoral artery. Placement of SENTINEL cerebral embolic protection device. OPERATORS: Interventional Cardiology Filler Mixer: Claribel Cisneros MD Cardiac Surgery Filler Mixer: Negro Lopez MD [employer] Laboratory Director Interventional Cardiology Filler Mixer: Aissatou Hughes METHODS: Procedure was explained to the patient with risks and benefits. he signed informed consent. he was brought to cath lab radiological technologist in a fasting state. The procedure was performed in the cardiac cath lab radiological technologist under conscious sedation. The right wrist area was prepped and draped in usual fashion. Access was obtained using ultrasound guidance and micropuncture technique in the right radial artery and a 6-Niuean x 11 cm Hydrophilic sheath was placed. Verapamil was given through the sheath. Both groin areas, and the right neck area were prepped and draped in usual fashion. Ultrasound guidance was used for micropuncture access in the right internal jugular vein and a 6-Niuean x 11 cm introducer sheath was secured in place. Micropuncture technique and ultrasound guidance were used for access in the right common femoral artery and inner cannula angiography was performed followed by upsizing to a 6-Niuean x 11 cm sheath. The same was done for the access in the left common femoral artery. At this time, we proceeded with the preclosure in the right common femoral artery using 2 crossing Perclose devices and the access was then upsized over a wire to a 10-Niuean sheath. A 5-Niuean balloon-tipped pacemaker wire was advanced through the internal jugular vein sheath to the right ventricular apex and adequate capture was confirmed. Heparin was given intravenously and therapeutic ACT confirmed during the rest of the procedure and additional heparin given as needed. Through the left common femoral sheath, an angled 6-Niuean pigtail catheter was then advanced to the ascending aorta and placed in the noncoronary cusp. Aortic root angiography was performed in the coplanar view as determined by prior CT scan measurements. A 6-Niuean IM diagnostic catheter was then advanced through the right radial sheath and then navigated using an 0.035 inch wire to the ascending aorta and this was used to place an exchange length Grandslam 0.014 inch wire. The wire was advanced to the left carotid artery. A Dundee device was then prepped using standard techniques and then advanced. The proximal filter was deployed in the innominate artery followed by deployment of the distal filter. The Dundee device was then secured in place. The right common femoral access was then upsized using an exchange length Lunderquist wire [which was placed through a multipurpose catheter] to the 14-Niuean Le E-sheath. The sheath was secured in place. A 6-Niuean AL1 diagnostic catheter was advanced via the E-sheath, and using a straight stiff Glidewire, the aortic valve was crossed and the catheter was advanced in the left ventricular cavity, and using an exchange length J-wire, a 6-Niuean angled pigtail catheter was advanced to make [...] retracted. The delivery c (more content not included)...NormalUnCorey HospitalPOCT GLUCOSE METER UNSOLICITED RESULTSon 21-88-7973Bhvchtp [Mass/Vol]193 mg/cIDoda17-925KgponnyzbaCorey HospitalComment on above:Order Comment: Waived Testing in the ED is performed under the ED CLIA certificate #[id number].Result Comment: [email or web address] By: #### [id number] #### [facility] ([facility]) [address] [place], [place] [address]Clbrbqj [Mass/Vol]334 mg/iCWanf51-692FdzbmrtvfeCorey HospitalComment on above:Order Comment: Patient had pre procedure medications already for cathResult Comment: [id number] By: #### [id number] ####[facility] ([facility])[address] [facility] [place], [place] [address]Aaklzjm [Mass/Vol]288 mg/vEBuho58-277RxjlqybifcCorey HospitalComment on above:Order Comment: Waived Testing in the ED is performed under the ED CLIA certificate #[id number].Result Comment: [email or web address] By: #### [id number] #### [facility] ([facility]) [address] [place], [place] [address]Rjfqicr [Mass/Vol]351 mg/xHLzij95-943SrlmulbrfzCorey HospitalComment on above:Order Comment: Waived Testing in the ED is performed under the ED CLIA certificate #[id number].Result Comment: clarcom Performed By: #### [id number] #### [facility] ([facility]) [address] [place], [place] [address]ye [id number] Case Management Update Multidisciplinary rounds have been [...] is for patient to discharge to [facility] when medically ready. Diet: Dietary Orders (From admission, onward) Start Ordered 05/14/25 0631 Special Kitchen Request Once Comments: Omelet with green pepper, ivorian cheese and onion, 1 slice wheat toast, [...] Reason for OT? Answer: gait abnormality 05/10/25410Normal[facility]30The patient is Moderately Stable - [...] the next 3 months Outcome: ProgressingNormalUniversity of [facility] 05-14-2025 ACTIVATED PARTIAL THROMBOPLASTIN TIME IN PPP BY COAGULATION ASSAY57.1 Seconds High25.0-35.0UnCorey HospitalComment on above:Result Comment: Clinical significance of the APTT is questionable in the presence of heparin. Performed By: #### [id number] #### [facility] ([facility]) [address] [place], [place] [address]OZWEQEQKR PARTIAL THROMBOPLASTIN TIME IN PPP BY COAGULATION ASSAY33.6 MjkviapSdtxoj13.0-35.0UnCorey HospitalComment on above:Order Comment: Baseline aPTT before initiating heparin infusion.Result Comment: Clinical significance of the APTT is questionable in the presence of heparin.Performed By: #### [id number] ####[facility] ([facility])[address] [place], [place] [address]TRYPA METABOLIC PANELon 05-72-5414Mnvpp gap [Moles/Vol]13 mmol/LNormal7-20UnCorey HospitalComment on above:Performed By: #### [id number] #### [facility] ([facility]) [address] [facility] [place] [address]Udfxroh [Mass/Vol]8.4 mg/dLLow8.6-10.3UnCorey HospitalComment on above:Performed By: #### [id number] #### [facility] ([facility]) [address] [address]Welhwekp [Moles/Vol]100 mmol/DEjxsaw42-313UdlpzmircwCorey HospitalComment on above:Performed By: #### [id number] #### [facility] ([facility]) [address] [place] [address]HT5 [Moles/Vol]29 mmol/NChnukm03-19EtkfznvhcmCorey HospitalComment on above:Performed By: #### [id number] #### [facility] ([facility]) [address] [place] [address]Pdlgplaccz [Mass/Vol]1.74 mg/dLHigh0.70-1.30UnCorey HospitalComment on above:Performed By: #### [id number] #### [facility] ([facility]) [address] [place] [address]IVUXXVUIAS FILTRATION RATE ML/MIN/1.73 SQ M.WYMDORBPG97.7 mL/min/1.73m*2Low>60.0UnCorey HospitalComment on above:Result Comment: [facility]???s estimated glomerular filtration rate (eGFR) will [...] affect anyone group of individuals.Performed By: #### [id number] #### [facility] ([facility]) [address] [place] [address]Rgqyutm [Mass/Vol]186 mg/oPCmyd88-000UcpbuwsthxCorey HospitalComment on above:Performed By: #### [id number] #### [facility] ([facility]) [address] [place] [address]Wrpmhrqww [Moles/Vol]3.8 mmol/LNormal3.5-5.1UnCorey HospitalComment on above:Performed By: #### [id number] #### [facility] ([facility]) [address] [place] [address]Yfhovk [Moles/Vol]138 mmol/KQpnkfz347-398MqazbgcqcxCorey HospitalComment on above:Performed By: #### [id number] #### [facility] ([facility]) [address] [place] [address]Biuc nitrogen [Mass/Vol]34 mg/dLHigh7-25UnCorey HospitalComment on above:Performed By: #### [id number] #### [facility] ([facility]) [address] [place] [address]MDCU NITROGEN/CREATININE (MASS RATIO) IN SER/PLAS19.5Normal [facility] HospitalComment on above:Performed By: #### [id number] #### [facility] ([facility]) [address] [place] [address]LJHLQDYJ COUNTon 44-52-2946XTWIMWZWF (10*3/UL) IN BLOOD AUTOMATED QNZXD152 10*3/cSYpqtln574-408WljjltktnoCorey Hospital Comment on above:Performed By: #### [id number] #### [facility] ([facility]) [address] [place], [place] [address]UGZN GLUCOSE METER UNSOLICITED RESULTSon 44-26-5311Jygsdha [Mass/Vol]303 mg/xYVauc43-118TpacfjhtiuCorey HospitalComment on above:Order Comment: Waived Testing in the ED is performed under the ED CLIA certificate #[id number].Result Comment: ojcjfkl1Kejkwpfru By: #### [id number] #### [facility] ([facility]) [address] [place] [address]Icvrrlm [Mass/Vol]254 mg/mBAmhn81-116Dydhnkimtl of [facility]ch Medical CenterComment on above:Order Comment: Waived Testing in the ED is performed under the ED CLIA certificate #[id number].Result Comment: [email or web address] Performed By: #### [id number] #### [facility] ([facility]) [address] [place], [place] [address]Agpuzmu [Mass/Vol]225 mg/uBMtcb01-536WhotvqoinnCorey HospitalComment on above:Order Comment: Waived Testing in the ED is performed under the ED CLIA certificate #[id number].Result Comment: ooperac Performed By: #### [id number] ####[facility] ([facility])[address] [place], [place] [address]Gztprzd [Mass/Vol]209 mg/yKKrkd81-395MqagilmfqaAultman Orrville HospitalComment on above:Order Comment: Waived Testing in the ED is performed under the ED CLIA certificate #[id number].Result Comment: ooperac Performed By: #### [id number] ####[facility] ([facility])[address] [place] [address]77ix 67-06-324033Xgv patient is Moderately Stable - Low risk [...] swelling over the next 3 months Outcome: ProgressingNormalUniversSouthwest General Health CenterBASIC METABOLIC PANELon 85-97-4418Lwlmp gap [Moles/Vol]14 mmol/LNormal7-20UnCorey HospitalComment on above:Performed By: #### [id number] #### [facility] ([facility]) [address] [place] [address]Cvofeon [Mass/Vol]8.5 mg/dLLow8.6-10.3UnCorey HospitalComment on above:Performed By: #### [id number] #### [facility] ([facility]) [address] [place], [place] [address]Jehreryv [Moles/Vol]99 mmol/AFpvcnq84-352GafdfyercbCorey HospitalComment on above:Performed By: #### [id number] #### [facility] ([facility]) [address] [place], [place] [address]HV6 [Moles/Vol]29 mmol/KIglyth89-85EewuvupapdCorey HospitalComment on above:Performed By: #### [id number] #### [facility] ([facility]) [address] [place], [place] [address]Ptylrgndsq [Mass/Vol]1.65 mg/dLHigh0.70-1.30UnCorey HospitalComment on above:Performed By: #### [id number] #### [facility] ([facility]) [address] [place], [place] [address]BEWPQPQXPG FILTRATION RATE ML/MIN/1.73 SQ M.NRGYHIUBC52.2 mL/min/1.73m*2Low>60.0UnCorey HospitalComment on above:Result Comment: [facility]???s estimated glomerular filtration rate (eGFR) will [...] affect anyone group of individuals.Performed By: #### [id number] #### [facility] ([facility]) [address] [place], [place] [address]Qdwwjcf [Mass/Vol]206 mg/fOFgjn84-344WmfefvqcmgCorey HospitalComment on above:Performed By: #### [id number] #### [facility] ([facility]) [address] [place], [place] [address]Jwxupfetr [Moles/Vol]3.5 mmol/LNormal3.5-5.1UnCorey HospitalComment on above:Performed By: #### [id number] #### [facility] ([facility]) [address] [place], [place] [address]Xprzqq [Moles/Vol]138 mmol/SJpmlpu082-609LfxqlrmlzzCorey HospitalComment on above:Performed By: #### [id number] #### [facility] ([facility]) [address] [place], [place] [address]Wodj nitrogen [Mass/Vol]32 mg/dLHigh7-25UnCorey HospitalComment on above:Performed By: #### [id number] #### [facility] ([facility]) [address] [place], [place] [address]QRKG NITROGEN/CREATININE (MASS RATIO) IN SER/PLAS19.4Normal [facility] HospitalComment on above:Performed By: #### [id number] #### [facility] ([facility]) [address] [place], [place] [address]VXHhm 49-10-1673Noftiewzxgh distribution width (RBC) [Ratio]18.9 %High11.5-15.0UnCorey HospitalComment on above:Performed By: #### [id number] #### [facility] ([facility]) [address] [place], [place] [address]CGODOVGEFTW MEAN CORPUSCULAR HEMOGLOBIN CONCENTRATION (G/DL) BY BMQZCRTML34.3 g/dLLow32.0-35.0UnCorey HospitalComment on above:Performed By: #### [id number] #### [facility] ([facility]) [address] [place] [address]Bfemqvgsqc (Bld) [Volume fraction]31.3 %Low39.0-50.0UnCorey HospitalComment on above:Performed By: #### [id number] #### [facility] ([facility]) [address] [place] [address]Tzwxvprpli (Bld) [Mass/Vol]9.8 g/dLLow13.0-17.0UnCorey HospitalComment on above:Performed By: #### [id number] #### [facility] ([facility]) [address] [place] [address]YJG (RBC) [Entitic mass]25.8 pgLow27.0-33.0UnCorey HospitalComment on above:Performed By: #### [id number] #### [facility] ([facility]) [address] [place] [address]RVF (RBC) [Entitic vol]82.4 yWByulrv80.0-98.0UnCorey HospitalComment on above:Performed By: #### [id number] #### [facility] ([facility]) [address] [place] [address]VLQFSKZBY (10*3/UL) IN BLOOD AUTOMATED [id number] 10*3/uLNormal 150-400UnCorey HospitalComment on above:Performed By: #### [id number] #### [facility] ([facility]) [address] [place] [address]HZG (Bld) [#/Vol]3.80 10*6/uLLow4.20-5.70UnCorey HospitalComment on above:Performed By: #### [id number] #### [facility] ([facility]) [address] [place] [address]JBI (Bld) [#/Vol]10.18 10*3/uLNormal4.00-10.60UnCorey HospitalComment on above:Performed By: #### [id number] #### [facility] ([facility]) [address] [place], [place] [address]SZOX GLUCOSE METER UNSOLICITED RESULTSon 77-68-8692Emmqxmb [Mass/Vol]219 mg/kVWydt28-640RlkiypsfykCorey HospitalComment on above:Order Comment: Waived Testing in the ED is performed under the ED CLIA certificate #[id number].Result Comment: yygrivr2Dpqufpsfx By: #### [id number] #### [facility] ([facility]) [address] [place], [place] [address]Vuamnea [Mass/Vol]277 mg/xBLpnm04-571VieypijnqvCorey HospitalComment on above:Order Comment: Patient had pre procedure medications already for cathResult Comment: iiwvzvr0Scnbwvkwh By: #### [id number] ####[facility] ([facility])[address] [place], [place] [address]Airnuxk [Mass/Vol]274 mg/tCYktz12-968DidriqxmwpCorey HospitalComment on above:Order Comment: Waived Testing in the ED is performed under the ED CLIA certificate #[id number].Result Comment: nhoosfy3Pfhrigiqi By: #### [id number] #### [facility] ([facility]) [address] [place], [place] [address]Feezhih [Mass/Vol]222 mg/hEKuir10-077OlmdehvgjqCorey HospitalComment on above:Order Comment: Waived Testing in the ED is performed under the ED CLIA certificate #[id number].Result Comment: [email or web address] Performed By: #### [id number] #### [facility] ([facility]) [address] [place], [place] [address]cn 46-05-605933Rtl patient is Moderately Stable - Low risk of patient condition declining or worsening The patient's goals for the shift include Comfort, rest The clinical goals for the shift include Stable vitals, comfortNormalUniversity of [facility]30The patient is Moderately Stable - [...] the next 3 months Outcome: ProgressingNormalUniversity of [facility]30The patient is Moderately Stable - [...] swelling over the next 3 months Outcome: ProgressingNormalUniversSouthwest General Health CenterANTI-XA (HEPARIN LEVEL)on 01-54-7367TSPVLWC UNFRACTIONATED (U/ML) IN PPP BY CHROMOGENIC METHOD 0.32 IU/mLNormal0.3-0.7UnCorey HospitalComment on above: Result Comment: Rivaroxaban and Apixaban will interfere with the anti Xa assay used to monitor UFH and LMWH.Performed By: #### [id number] #### [facility] ([employer]) [address] [place], [place] [address]FPSYRPW UNFRACTIONATED (U/ML) IN PPP BY CHROMOGENIC METHOD0.42 IU/mLNormal0.3-0.7UnCorey HospitalComment on above:Result Comment: Rivaroxaban and Apixaban will interfere with the anti Xa assay used to monitor UFH and LMWH.Performed By: #### [id number] ####[facility] ([employer])[address] [place], [place] [address]MGVQP METABOLIC PANELon 05-12-2025 Anion gap [Moles/Vol]14 mmol/LNormal7-20UnCorey Hospital Comment on above:Performed By: #### [id number] ####[facility] ([facility])[address] [place], [place] [address]Pcbtfjf [Mass/Vol]8.5 mg/dLLow8.6-10.3UnCorey HospitalComment on above:Performed By: #### [id number] ####[facility] ([facility])[address] [place] [address]Eqvcdodj [Moles/Vol]99 mmol/ODsntvx06-277QuonknlwwjCorey HospitalComment on above:Performed By: #### [id number] ####[facility] ([facility])[address] [place] [address] CO2 [Moles/Vol]29 mmol/MBjhckt01-83WopvzobsvgCorey HospitalComment on above:Performed By: #### [id number] ####[facility] ([facility])[address] [place] [address]Nayzykchni [Mass/Vol]1.63 mg/dLHigh0.70-1.30UnCorey HospitalComment on above:Performed By: #### [id number] ####[facility] ([facility])[address] [place] [address]BOFAHPPNTM FILTRATION RATE ML/MIN/1.73 SQ M.TKIMGHDEJ47.8 mL/min/1.73m*2Low>60.0UnCorey HospitalComment on above:Result Comment: [facility]???s estimated glomerular filtration rate (eGFR) will [...] anyone group of individuals.Performed By: #### [id number] ####[facility] ([facility])[address] [place] [address]Nxvwvrs [Mass/Vol]191 mg/fOFjiu99-099DinopcqgmlCorey HospitalComment on above:Performed By: #### [id number] ####[facility] ([facility])[address] [place] [address]Hjsleaykh [Moles/Vol]3.5 mmol/LNormal3.5-5.1UnCorey HospitalComment on above:Performed By: #### [id number] ####[facility] ([facility])[address] [place], [place] [address]Ejopmc [Moles/Vol]138 mmol/L Bmkryq378-999AyhuxkpfjpCorey HospitalComment on above:Performed By: #### [id number] ####[facility] ([facility])[address] [place], [place] [address]Cpwe nitrogen [Mass/Vol]36 mg/dLHigh7-25UnCorey HospitalComment on above:Performed By: #### [id number] ####[facility] ([facility])[address] [place], [place] [address]SOTW NITROGEN/CREATININE (MASS RATIO) IN SER/PLAS22.1Normal [facility] HospitalComment on above:Performed By: #### [id number] ####[facility] ([facility])[address] [facility] [place], [place] [address]ZIKW GLUCOSE METER UNSOLICITED RESULTSon 46-98-9008Ookcjrt [Mass/Vol]275 mg/nSMuld04-374 [facility] HospitalComment on above:Order Comment: Waived Testing in the ED is performed under the ED CLIA certificate #[id number].Result Comment: slokcmt69Tfsygffqk By: #### [id number] ####[facility] ([facility])[address] [facility] [place] [place] [place] [address]Hwnztwp [Mass/Vol]285 mg/yGOftq52-943QtdabebkyyCorey HospitalComment on above:Order Comment: Waived Testing in the ED is performed under the ED CLIA certificate #[id number].Result Comment: [email or web address] Performed By: #### [id number] #### [facility] ([facility]) [address] [place], [place] [address]Yzakkot [Mass/Vol]332 mg/qPGnoj67-659LpluxfhckbCorey HospitalComment on above:Order Comment: Waived Testing in the ED is performed under the ED CLIA certificate #[id number].Result Comment: [email or web address] Performed By: #### [id number] #### [facility] ([facility]) [address] [place] [address]Luimarr [Mass/Vol]214 mg/qOBsah11-144BxsjwwfdyhCorey HospitalComment on above:Order Comment: Waived Testing in the ED is performed under the ED CLIA certificate #[id number].Result Comment: [email or web address] Performed By: #### [id number] #### [facility] ([facility]) [address] [place] [address]vk 39-81-475371Weh patient is Moderately Stable - Low risk of patient condition declining or worsening The patient's goals for the shift include comfort rest The clinical goals for the shift include VSS Over the shift, the patient did not make progress toward the following goals. Barriers to progression include. Recommendations to address these barriers include.NormalUnCorey HospitalANTI-XA (HEPARIN LEVEL)on 05-09-0323JDHSBMA UNFRACTIONATED (U/ML) IN PPP BY CHROMOGENIC METHOD0.27 IU/mL Low0.3-0.7UnCorey HospitalComment on above:Result Comment: Rivaroxaban and Apixaban will interfere with the anti Xa assay used to monitor UFH and LMWH.Performed By: #### [id number] #### [facility] ([facility]) [address] [place], [place] [address]RANHXAY UNFRACTIONATED (U/ML) IN PPP BY CHROMOGENIC METHOD0.38 IU/mLNormal0.3-0.7UnCorey HospitalComment on above:Result Comment: Rivaroxaban and Apixaban will interfere with the anti Xa assay used to monitor UFH and LMWH.Performed By: #### [id number] ####[facility] ([facility])[address] [place], [place] [address]OEGQVUC UNFRACTIONATED (U/ML) IN PPP BY CHROMOGENIC METHOD0.28 IU/mLLow0.3-0.7UnCorey Hospital Comment on above:Result Comment: Rivaroxaban and Apixaban will interfere with the anti Xa assay used to monitor UFH and LMWH.Performed By: #### [id number] ####[facility] ([facility])[address] [place], [place] [address]VOGOC METABOLIC PANELon 99-99-4890Uahjq gap [Moles/Vol]15 mmol/LNormal7-20UnCorey HospitalComment on above:Performed By: #### [id number] #### [facility] ([facility]) [address] [place], [place] [address]Jasggzi [Mass/Vol]8.4 mg/dLLow8.6-10.3UnCorey HospitalComment on above:Performed By: #### [id number] #### [facility] ([facility]) [address] [place], [place] [address]Buepscyu [Moles/Vol]101 mmol/XPxszng53-233DwzwwfqsoqCorey HospitalComment on above:Performed By: #### [id number] #### [facility] ([facility]) [address] [place], [place] [address]GY0 [Moles/Vol]28 mmol/MGwacuv72-70ZqorfurpugCorey HospitalComment on above:Performed By: #### [id number] #### [facility] ([facility]) [address] [place], [place] [address]Nhhvcnktlq [Mass/Vol]1.56 mg/dLHigh0.70-1.30UnCorey HospitalComment on above:Performed By: #### [id number] #### [facility] ([facility]) [address] [place], [place] [address]PBBDFUILTS FILTRATION RATE ML/MIN/1.73 SQ M.VAYRLUIGO04.0 mL/min/1.73m*2Low>60.0UnCorey HospitalComment on above:Result Comment: [facility]???s estimated glomerular filtration rate (eGFR) will [...] affect anyone group of individuals.Performed By: #### [id number] #### [facility] ([facility]) [address] [place] [address]Ljlmdwp [Mass/Vol]237 mg/vQCoki51-421YygirnnqlvCorey HospitalComment on above:Performed By: #### [id number] #### [facility] ([facility]) [address] [place], [place] [address]Yxjglashy [Moles/Vol]4.2 mmol/LNormal3.5-5.1UnCorey HospitalComment on above:Performed By: #### [id number] #### [facility] ([facility]) [address] [place], [place] [address]Bpubft [Moles/Vol]140 mmol/QSitzjx020-891FjpaujowpwCorey HospitalComment on above:Performed By: #### [id number] #### [facility] [facility] [address] [place], [place] [address]Gjeu nitrogen [Mass/Vol]31 mg/dLHigh7-25UnCorey HospitalComment on above:Performed By: #### [id number] #### [facility] ([facility]) [address] [place], [place] [address]OJKD NITROGEN/CREATININE (MASS RATIO) IN SER/PLAS19.9Normal [facility] HospitalComment on above:Performed By: #### [id number] #### [facility] ([facility]) [address] [place], [place] [address]BGXrp 10-59-5210Frvatgyhcly distribution width (RBC) [Ratio]19.0 %High11.5-15.0UnCorey HospitalComment on above:Performed By: #### [id number] #### [facility] ([facility]) [address] [place] [address]VXFTHHXVRAO MEAN CORPUSCULAR HEMOGLOBIN CONCENTRATION (G/DL) BY GWEOAJJZW79.1 g/dLLow32.0-35.0UnCorey HospitalComment on above:Performed By: #### [id number] #### [facility] ([facility]) [address] [place] [address]Ppnpnswcoh (Bld) [Volume fraction]31.8 %Low39.0-50.0UnCorey HospitalComment on above:Performed By: #### [id number] #### [facility] ([facility]) [address] [place], [place] [address]Ookgsxiklz (Bld) [Mass/Vol]9.9 g/dLLow13.0-17.0UnCorey HospitalComment on above:Performed By: #### [id number] #### [facility] ([facility]) [address] [place], [place] [address]FRF (RBC) [Entitic mass]25.8 pgLow27.0-33.0UnCorey HospitalComment on above:Performed By: #### [id number] #### [facility] ([facility]) [address] [place] [place] [address]NHQ (RBC) [Entitic vol]82.8 dNUmbznp90.0-98.0UnCorey HospitalComment on above:Performed By: #### [id number] #### [facility] ([facility]) [address] [place], [place] [address]BCDCRECXO (10*3/UL) IN BLOOD AUTOMATED [id number] 10*3/uLNormal 150-400UnCorey HospitalComment on above:Performed By: #### [id number] #### [facility] ([facility]) [address] [place], [place] [address]PFT (Bld) [#/Vol]3.84 10*6/uLLow4.20-5.70UnCorey HospitalComment on above:Performed By: #### [id number] #### [facility] ([facility]) [address] [facility] [place], [place] [address]RCP (Bld) [#/Vol]11.58 10*3/uLHigh4.00-10.60UnCorey HospitalComment on above:Performed By: #### [id number] #### [facility] ([facility]) [address] [place], [place] [address]FTSCKJQlm 59-12-1647SAYCKCBZdxtcj For Consult aortic stenosis Referring Provider: Mesha Hughes MD History Of Present Illness Nadir Beth is a 85 y.o. male presenting with acute on chronic heart failure. He was found to have a BMP greater than [address] Youssef's office in [place] yesterday. He also had signs of congestive [...] leg paresis. He saw Dr. Garcia at [facility] and was told that it was embolic [...] % -- 05/10/25 164 (more content not included)...[facility] CampusCTA ABDOMEN PELVIS W IV CONTRASTon 87-10-6586YUP ABDOMEN PELVIS W IV CONTRASTCTA ABDOMEN PELVIS [...] occluded vessel seen. Electronically signed: Yenni Stafford MD.NormalUnCorey HospitalComment on above:Order Comment: Low dose (half) contrastHEMOGLOBIN A1Con 61-53-6552Ydcazza [Mass/Vol]220 mg/dLNormalUniversSouthwest General Health Center Comment on above:Performed By: #### [id number] #### [facility] ([facility]) [address] [place], [place] [address]SlL7f (Bld) [Mass fraction]9.3 %High4.0-6.0UnCorey HospitalComment on above:Performed By: #### [id number] #### [facility] ([facility]) [address] [place], [place] [address]ZJxd 72-30-0588FCEkoxjl For Consult aortic stenosis Referring Provider: Mesha Hughes MD History Of Present Illness Nadir Beth is a 85 y.o. male presenting with acute on chronic heart failure. He was found to have a BMP greater than [address] Youssef's office in [place] yesterday. He also had signs of congestive [...] leg paresis. He saw Dr. Garcia at [facility] and was told that it was embolic [...] % -- 05/10/25 164 (more content not included)...NormalUnCorey HospitalHPH&P reviewed. The patient was examined and there are no changes to the H&P. Will proceed with RHC and coronary angiogram for acute on chronic HFpEF and aortic stenosis work up.NormalUnCorey HospitalLIPID PANELon 07-97-0964DMUT/HDL2.7 mg/dLNormalUniversSouthwest General Health CenterComment on above:Performed By: #### [id number] ####[facility] ([facility])[address] [place] [address]Eiyzawhmsqc [Mass/Vol]187 mg/hIFpqewc912-135YuqwwwidgzCorey HospitalComment on above:Performed By: #### [id number] ####[facility] ([facility])[address] [place], [place] [address]Nodorhzot [Mass/Vol]93 mg/dL Normal<150UnCorey HospitalComment on above:Result Comment: TRIGLYCERIDE REFERENCE RANGE: 20 YEARS AND OLDER CARDIOVASCULAR RISK LESS THAN 150 mg/dL LOW RISK 150 TO 199 mg/dL BORDERLINE RISK 200 mg/dL AND GREATER HIGH RISKPerformed By: #### [id number] ####[facility] ([facility])[address] [place], [place] [address]Tdgwhdnuw [Mass/Vol]99 mg/dLNormal 0-160UnCorey HospitalComment on above:Performed By: #### [id number] ####[facility] ([facility])[address] [place], [place] [address]Jgzmygkak [Mass/Vol]69 mg/lTGxlljp83-27ScrkzpdlwwCorey HospitalComment on above:Performed By: #### [id number] ####[facility] ([facility])[address] [place], [place] [address]PEB HDL CHOL. (LDL+VLDL)118NormalUniversSouthwest General Health CenterComment on above:Performed By: #### [id number] ####[facility] ([facility])[address] [place], [place] [address]FTVDU VLDL-C19 mg/dLNormal0-40 [facility] HospitalComment on above:Performed By: #### [id number] ####[facility] ([facility]ER)[address] [facility] [place] [address]OCYJ GLUCOSE METER UNSOLICITED RESULTSon 40-16-4157Nlimtln [Mass/Vol]306 mg/aKXreu94-975 [facility] HospitalComment on above:Order Comment: Waived Testing in the ED is performed under the ED CLIA certificate #[id number].Result Comment: qjqknig34Ohyiokjnp By: #### [id number] ####[facility] ([facility])[address] [place], [place] [address]Xrctjen [Mass/Vol]348 mg/dJTxtj50-060XhstflsspmCorey HospitalComment on above:Order Comment: Waived Testing in the ED is performed under the ED CLIA certificate #[id number].Result Comment: clarcom Performed By: #### [id number] #### [facility] ([facility]) [address] [place], [place] [address]Gdwmpcz [Mass/Vol]201 mg/uZCsmd53-650UjoevjivizCorey HospitalComment on above:Order Comment: Waived Testing in the ED is performed under the ED CLIA certificate #[id number].Result Comment: clarcom Performed By: #### [id number] #### [facility] ([facility]) [address] [place], [place] [address]Ryjkurw [Mass/Vol]224 mg/rIKojc70-048GipanhzpwdCorey HospitalComment on above:Order Comment: Patient had pre procedure medications already for cathResult Comment: clarcomPerformed By: #### [id number] ####[facility] ([facility])[address] [place] [address]uq 05-10-2025 30The patient is Moderately Stable - [...] the next 3 months Outcome: ProgressingNormalUniversity of [facility]30The patient is Moderately Stable - Low risk of patient condition declining or worsening The patient's goals for the shift include comfort The clinical goals for the shift include VSSNormalUniversselect medical clevel[facility] clinic [facility] [place] of [facility] Charl[facility] Medical CenterANTI-XA (HEPARIN LEVEL)on 88-02-2249VHODIYZ UNFRACTIONATED (U/ML) IN PPP BY CHROMOGENIC METHOD0.25 IU/mLLow0.3-0.7UnCorey Hospital Comment on above:Result Comment: Rivaroxaban and Apixaban will interfere with the anti Xa assay used to monitor UFH and LMWH.Performed By: #### [id number] #### [facility] ([facility]) [address] [place], [place] [address]CVESUJY UNFRACTIONATED (U/ML) IN PPP BY CHROMOGENIC METHOD0.21 IU/mLLow0.3-0.7UnCorey HospitalComment on above:Order Comment: Check anti-Xa level every 6 hours while on heparin infusion, or per protocol.Result Comment: Rivaroxaban and Apixaban will interfere with the anti Xa assay used to monitor UFH and LMWH.Performed By: #### [id number] ####[facility] ([facility])[address] [place], [place] [address]BMNLum 05-10-2025 ACTIVATED PARTIAL THROMBOPLASTIN TIME IN PPP BY COAGULATION ASSAY34.1 Seconds Sqtqqk84.0-35.0UnCorey HospitalComment on above:Order Comment: Baseline aPTT before initiating heparin infusion.Result Comment: Clinical significance of the APTT is questionable in the presence of heparin. Performed By: #### [id number] #### [facility] ([facility]) [address] [place], [place] [address]S-TKKE NATRIURETIC PEPTIDEon 02-30-2536Ymdrlszfoow peptide B (Bld) [Mass/Vol]736 pg/mLHigh0-100UnCorey HospitalComment on above:Performed By: #### [id number] #### [facility] ([facility]) [address] [place], [place] [address]OYK WITH AUTO DIFFERENTIALon 83-49-1368Zftzhgwvx (Bld) [#/Vol] 0.04 10*3/uLNormal0.00-0.20UnCorey HospitalComment on above: Performed By: #### [id number] #### [facility] ([facility]) [address] [place], [place] [address]Vzvmtuteq/100 WBC (Bld)0.4 %Normal0.0-1.0UnCorey HospitalComment on above:Performed By: #### [id number] #### [facility] ([facility]) [address] [place], [place] [address]Iplrprgappt (Bld) [#/Vol]0.15 10*3/uLNormal0.00-0.50UnCorey HospitalComment on above:Performed By: #### [id number] #### [facility] ([facility]) [address] [place], [place] [address]Ohayabybayz/100 WBC (Bld)1.4 %Normal0.0-6.0UnCorey HospitalComment on above:Performed By: #### [id number] #### [facility] ([facility]) [address] [place], [place] [address]Ukwpzkpapzi distribution width (RBC) [Ratio]19.2 %High11.5-15.0 [facility] HospitalComment on above:Performed By: #### [id number] #### [facility] ([facility]) [address] [place], [place] [address]XMPNALEBCKK MEAN CORPUSCULAR HEMOGLOBIN CONCENTRATION (G/DL) BY HWYRRVDDY44.2 g/dLLow32.0-35.0UnCorey HospitalComment on above:Performed By: #### [id number] #### [facility] ([facility]) [address] [place], [place] [address]Hfwxdepxuf (Bld) [Volume fraction]33.3 %Low39.0-50.0UnCorey HospitalComment on above:Performed By: #### [id number] #### [facility] ([facility]) [address] [place], [place] [address]Eplwiovdss (Bld) [Mass/Vol]10.4 g/dLLow13.0-17.0UnCorey HospitalComment on above:Performed By: #### [id number] #### [facility] ([facility]) [address] [place], [place] [address]Avlpbcrr granulocytes (Bld) [#/Vol]0.06 10*3/uLNormal0.00-0.20 [facility] HospitalComment on above:Performed By: #### [id number] #### [facility] ([facility]) [address] [place], [place] [address]Bslsstgq granulocytes/100 WBC (Bld)0.6 %Normal0.0-1.0UnCorey HospitalComment on above:Performed By: #### [id number] #### [facility] ([facility]) [address] [place], [place] [address]Jakmcpzoxkg (Bld) [#/Vol]0.86 10*3/uLLow1.20-4.00UnCorey HospitalComment on above:Performed By: #### [id number] #### [facility] ([facility]) [address] [place], [place] [address]Ydrjjcgevdw/100 WBC (Bld)8.2 %Low20.0-45.0UnCorey HospitalComment on above:Performed By: #### [id number] #### [facility] ([facility]) [address] [place], [place] [address]HRT (RBC) [Entitic mass]25.7 pgLow27.0-33.0UnCorey HospitalComment on above:Performed By: #### [id number] #### [facility] ([facility]) [address] [address] [place], [place] [address]TEP (RBC) [Entitic vol]82.2 pCSmpnoq99.0-98.0UnCorey HospitalComment on above:Performed By: #### [id number] #### [facility] ([facility]) [address] [place] [address]Keskxnzcp (Bld) [#/Vol]1.08 10*3/uLHigh0.10-1.00UnCorey HospitalComment on above:Performed By: #### [id number] #### [facility] ([facility]) [address] [facility] [place], [place] [address]Jurcdjdwc/100 WBC (Bld)10.3 %Normal5.0-12.0UnCorey HospitalComment on above:Performed By: #### [id number] #### [facility] ([facility]) [address] [place], [place] [address]Kslhpomyfrn (Bld) [#/Vol]8.31 10*3/uLHigh1.60-7.60UnCorey HospitalComment on above:Performed By: #### [id number] #### [facility] ([facility]) [address] [place], [place] [address]Yjawzhjkusc/100 WBC (Bld)79.1 %High40.0-72.0UnCorey HospitalComment on above:Performed By: #### [id number] #### [facility] ([facility]) [address] [place], [place] [address]GJSE (PER 100 WBCS) BY AUTOMATED COUNT0.0 %Fxvxvi8PiqhxhxvazCorey HospitalComment on above:Performed By: #### [id number] #### [facility] ([facility]) [address] [place], [place] [address]NRXCWNJNZ (10*3/UL) IN BLOOD AUTOMATED SESTQ772 10*3/uLNormal 150-400UnCorey HospitalComment on above:Performed By: #### [id number] #### [facility] ([facility]) [address] [place] [address]XTF (Bld) [#/Vol]4.05 10*6/uLLow4.20-5.70UnCorey HospitalComment on above:Performed By: #### [id number] #### [facility] ([facility]) [address] [address]FGZ (Bld) [#/Vol]10.50 10*3/uLNormal4.00-10.60UnCorey HospitalComment on above:Performed By: #### [id number] #### [facility] ([facility]) [address] [place] [address]PQJBEISYHVGUO METABOLIC PANELon 64-02-0134Wfycrra [Mass/Vol]3.5 g/dLNormal3.5-5.7UnCorey HospitalComment on above:Performed By: #### [id number] ####[facility] ([facility])[address] [place] [address] ALP [Catalytic activity/Vol]72 U/EQyeldz95-999SkcdiquhpcCorey HospitalComment on above:Performed By: #### [id number] ####[facility] ([facility])[address] [place] [address]UPD [Catalytic activity/Vol]7 U/L Normal7-52UnCorey HospitalComment on above:Performed By: #### [id number] ####[facility] ([facility])[address] [place] [address]Vbtoa gap [Moles/Vol]16 mmol/LNormal7-20UnCorey HospitalComment on above:Performed By: #### [id number] ####[facility] ([facility])[address] [place], [place] [address]VOO [Catalytic activity/Vol]14 U/IIyovrg80-18JivvcfvfwgCorey HospitalComment on above:Performed By: #### [id number] ####[facility] ([facility])[address] [place], [place] [address]Cjhiomtei [Mass/Vol]0.4 mg/dL Normal0.3-1.0UnCorey HospitalComment on above:Performed By: #### [id number] ####[facility] ([facility])[address] [place] [address] Calcium [Mass/Vol]8.5 mg/dLLow8.6-10.3UnCorey HospitalComment on above:Performed By: #### [id number] ####[facility] ([facility])[address] [place] [address]Myhdfpds [Moles/Vol]101 mmol/RRlnofv52-828FfahvazclyCorey HospitalComment on above:Performed By: #### [id number] ####[facility] ([facility])[address] [place] [address]ID3 [Moles/Vol]26 mmol/LNormal 21-31UnCorey HospitalComment on above:Performed By: #### [id number] ####[facility] ([facility])[address] [place] [address]Qcrwqtnfrj [Mass/Vol]1.45 mg/dLHigh0.70-1.30UnCorey HospitalComment on above:Performed By: #### [id number] ####[facility] ([facility])[address] [place] [address]ZAREGDANAN FILTRATION RATE ML/MIN/1.73 SQ M.QQYMSWPWS09.9 mL/min/1.73m*2Low>60.0UnCorey HospitalComment on above:Result Comment: [facility]???s estimated glomerular filtration rate (eGFR) will [...] anyone group of individuals.Performed By: #### [id number] ####[facility] ([facility])[address] [place], [place] [address]Otcimic [Mass/Vol]156 mg/lLTigt29-654WgpxuqxctzCorey HospitalComment on above:Performed By: #### [id number] ####[facility] ([facility])[address] [place], [place] [address]Hpefhbrnz [Moles/Vol]3.6 mmol/L Normal3.5-5.1UnCorey HospitalComment on above:Performed By: #### [id number] ####[facility] ([facility])[address] [place] [address] Protein [Mass/Vol]6.2 g/dLNormal6.0-8.3UnCorey Hospital Comment on above:Performed By: #### [id number] ####[facility] ([facility])[address] [place], [place] [address]Xboupk [Moles/Vol]139 mmol/JZqlllw844-660WkhfxxlvvxCorey HospitalComment on above:Performed By: #### [id number] ####[facility] ([facility])[address] [place], [place] [address]Voku nitrogen [Mass/Vol] 28 mg/dLHigh7-25UnCorey HospitalComment on above:Performed By: #### [id number] ####[facility] ([facility])[address] [place] [address] UREA NITROGEN/CREATININE (MASS RATIO) IN SER/PLAS19.3NormalUniversSouthwest General Health CenterComment on above:Performed By: #### [id number] ####[facility] ([facility])[address] [place], [place] [address]HUPINMTea 67-10-5971OQIODYNruffvrhqs planning: to return to [facility] Patient came to this admission from [facility]. - Occupational Therapy Eval noting Patient is able to return to prior living environment - Physical Therapy Eval noting Patient is able to return to prior living environment - LDAs tab not listing any open wounds or closed skin issues - I/O wVital flowsheet noting [facility] Patient is from their facility, specifically their Longterm unit (not ECF or WAN) discharge barriers: [] no insurance precert needed for any placement from this admission [] NormalUnCorey HospitalCONSULT Attestation signed by Azeem Green MD at 05/10/2025 7:15 PM I personally saw and evaluated the patient on rounds with the medical office supervisor and agree with his assessment and plan as documented in the progress note from today Cardiology Consult Note Reason for Consult: Acute on chronic HFpEF, hypertensive urgency HPI: Nadir Beth is a 85 y.o. male with past medical history of A-fib on Xarelto, hypertension, HFpEF, CKD, recent history of CVA 4 months back, renal artery stenosis transferred from [facility] for acute on chronic heart failure. Patient had history of stroke 4 months back and was in rehab patient has been having progressive lower extremity edema for few days. Patient was advised to increase his Lasix from 20 to 40 mg and blood work was done which showed BNP 6214 and was advised to go to the ED. In [place] ED chest x-ray showed pulmonary vascular congestion [...] Abdomen is flat. Palp (more content not included)...[facility] CONSULTAdult Nutrition Assessment: Name: Nadir Beth Date: [...] 186 (H) 05/10/2025 0717 BUN 28 (H) 05/10/20254 CREATININE 1.45 (H) 05/10/20254 NA 139 05/10/2025 0454 K 3.6 05/10/2025 [...] of Nutrition and Dietetics (AND) and the [place] Society of Enteral and Parenteral Nutrition (ASPEN). [...] To reach the Clinical Dietitian, please utilize [employer] chat Wednesday-Wednesday from 8AM-4PM or call extension [phone]. For weekends (Wednesday-Wednesday) and hols, the Clinical Dietitian can be reached via pager ([phone]) from 9AM-3PM. The Clinical Nutrition Department is unable to respond to [employer] chat messages on Sundays and . [1] History reviewed. No pertinent past medical history. [2] Allergies Allergen Reactions Aminolevulinic Acid Hcl Unknown Iodinated Contrast Media Unknown Nitroglycerin Other hypotension Simvastatin UnknownNormalUniversity [facility] Medina HospitalDocumentationon [id number] Nadir Beth 1940 M Date Provider Department Center 05/10/202572924-AINJBOSUSANA KAUFFMAN [facility] MED Comprehensiv Family History Problem Relation Age of Onset Coronary artery disease Father Family Status - Relation Status Age at Mother Father DeceasedNormalUniversity [facility] Clinic Medina HospitalHIGH SENSITIVITY TROPONIN Ion 68-41-2657NA TROPONIN I (NG/L)26 ng/LHigh<20[facility] HospitalComment on above:Performed By: #### [id number] ####[facility] ([facility])[address] [place], [place] [address]IL TROPONIN I (NG/L)21 ng/LHigh<20 [facility] HospitalComment on above:Performed By: #### [id number] ####[facility] ([employer])[address] [place], [place] [address]OB TROPONIN I (NG/L)21 ng/LHigh<20UnCorey HospitalComment on above: Performed By: #### [id number] ####[facility] ([facility])[address] [place], [place] [address]VIau 96-36-1924II Attestation signed by Azeem Green MD at 05/10/2025 7:15 PM I personally saw and evaluated the patient on rounds with the medical office supervisor and agree with his assessment and plan as documented in the progress note from today Cardiology Consult Note Reason for Consult: Acute on chronic HFpEF, hypertensive urgency HPI: Nadir Beth is a 85 y.o. male with past medical history of A-fib on Xarelto, hypertension, HFpEF, CKD, recent history of CVA 4 months back, renal artery stenosis transferred from [facility] for acute on chronic heart failure. Patient had history of stroke 4 months back and was in rehab patient has been having progressive lower extremity edema for few days. Patient was advised to increase his Lasix from 20 to 40 mg and blood work was done which showed BNP 6214 and was advised to go to the ED. In [place] ED chest x-ray showed pulmonary vascular congestion [...] Abdomen is flat. Palp (more content not included)...NormalUnCorey Hospital MAGNESIUMon 92-25-0293Faqrqxvfk [Mass/Vol]2.0 mg/dLNormal1.9-2.7UnCorey HospitalComment on above:Performed By: #### [id number] ####[facility] ([facility])[address] [place], [place] [address]GHKEHPQD COUNTon 93-93-3400TWJUPQPLO (10*3/UL) IN BLOOD AUTOMATED BPUWS480 10*3/lORcfild393-789 [facility] HospitalComment on above:Performed By: #### [id number] #### [facility] ([facility]) [address] [place], [place] [address]YRVO GLUCOSE METER UNSOLICITED RESULTSon 33-22-3878Mvgfvaq [Mass/Vol]237 mg/fOGrct70-542EhwvhstwnmCorey HospitalComment on above:Order Comment: Waived Testing in the ED is performed under the ED CLIA certificate #[id number].Result Comment: [email or web address] By: #### [id number] #### [facility] ([facility]) [address] [place], [place] [address]Yopxijh [Mass/Vol]159 mg/bKPhxr94-309QipzzaayjjCorey HospitalComment on above:Order Comment: Waived Testing in the ED is performed under the ED CLIA certificate #[id number].Result Comment: [email or web address] Performed By: #### [id number] #### [facility] ([facility]) [address] [place], [place] [address]Tchwfhf [Mass/Vol]172 mg/uLGqzy42-941VxfmsnmijbAultman Orrville HospitalComment on above:Order Comment: Waived Testing in the ED is performed under the ED CLIA certificate #[id number].Result Comment: [email or web address] Performed By: #### [id number] ####[facility] ([facility])[address] [place], [place] [address]Ecqlpoh [Mass/Vol]186 mg/ePKkem38-272OuygiusgkiAultman Orrville HospitalComment on above:Order Comment: Waived Testing in the ED is performed under the ED CLIA certificate #[id number].Result Comment: [email or web address] Performed By: #### [id number] #### [facility] ([facility]) [address] [place], [place] [address]KTI2 REFLEX TO FT4on [id number] (MIU/L) IN SER/PLAS BY DETECTION LIMIT <= 0.05 MIU/L1.34 mIU/LNormal0.34-5.60UnCorey HospitalComment on above:Performed By: #### [id number] #### [facility] ([facility]) [address], [place] [id number] [id number] is rescheduled for 07/11.Normal [facility]36on [id number] to reschedule patients nephrology appointment. Advised at this time, the appointment will be cancelled and to call back to reschedule.NormalUnCorey HospitalTelephoneon [id number] KiritNadir Hamilton 1940 M Date Provider Department Center 05/04/2025 RUTHIE OWEN [facility] NEPHRO Comprehensiv Family History Problem Relation Age of Onset Coronary artery disease Father Family Status - Relation Status Age at Mother Father DeceasedNormalUniversSouthwest General Health CenterCoding Queryon [id number] QueryCoding Query From: Alberto OTERO, Lay To: Anai URIARTE; Cc: Ginny Talamantes; Sent: 04/30/2025 07:31:14 EDT ! 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 likely embolicNormalFisher [facility] HospitalCoding QueryCoding Query From: Lay Dominguez RN To: [...] Caller Number: H , M CKD stage 3BNoGalion HospitalCoding QueryCoding Query From: Lay Dominguez RN To: [...] Name: NADIR BETH; Caller Number: , M diabetic venous stasis ulcer to left lower leg limited to skin [facility]Office Visiton [id number]-up [id number] Nadir Beth 1940 M Date Provider Department Center 04/30/2025 CLARIBEL VILLALOBOS Family History Problem Relation Age of Onset Coronary artery disease Father Family Status - Relation Status Age at Mother Father Level of Service:11580 IN OFFICE/OUTPATIENT ESTABLISHED MOD MDM 30 [facility]36on [id number] with patient's daughter and scheduled him an apt to see Dr. Cisneros on 05/03/2025.[facility]36on [id number]'s daughter called to make you aware he had a stroke and was admitted to [facility]. He will be discharged today to SNF. He's scheduled for heart cath with you 05/10. Daughter wants to know if you still want him to have this or if he needs pushed out? Do you need to see him prior to this? Please advise. Thanks.[facility] CampusBMPon 04-12-8325Myxhl gap [Moles/Vol]12 mmol/LNormal6-16[facility] Medical CenterComment on above: Performed By: #### [id number] #### [facility] Laboratory [address], [place] [address]TBA/Creat Ratio22 No SttqkYfpf76-83JadbdcUniversity Hospitals Elyria Medical Center Comment on above:Performed By: #### [id number] #### [facility] [address], [place] [address]Ipiprnk [Mass/Vol]8.7 mg/dLLow8.9-11.1FPremier Health Miami Valley Hospital SouthComment on above:Performed By: #### [id number] #### [facility] [address], [place] [address]Slqyhqdc [Moles/Vol]102 mmol/PBiuaog316-793FgbkrvUniversity Hospitals Elyria Medical CenterComment on above:Performed By: #### [id number] #### [facility] [address], [place] [address]YY6 [Moles/Vol]27 mmol/KEqbnks30-38MzujauUniversity Hospitals Elyria Medical Center Comment on above:Performed By: #### [id number] #### [facility] [address], [place] [address]Lwjcnjfpjg [Mass/Vol]1.6 mg/dLHigh0.5-1.3FPremier Health Miami Valley Hospital SouthComment on above:Performed By: #### [id number] #### [facility] [address], [place] [address]Uiwzzif [Mass/Vol]233 mg/iUUqvi30-174CwqtgyUniversity Hospitals Elyria Medical CenterComment on above:Performed By: #### [id number] #### [facility] [address], [place] [address]Ycuzofvnp [Moles/Vol]4.3 mmol/LNormal3.5-5.3FPremier Health Miami Valley Hospital SouthComment on above:Performed By: #### [id number] #### [facility] [address], [place] [address]Hmavgm [Moles/Vol]137 mmol/XKomuiu302-675DanhqlUniversity Hospitals Elyria Medical CenterComment on above:Performed By: #### [id number] #### [facility] Laboratory [address], [place] [address]Zgfs nitrogen [Mass/Vol]35 mg/dLHigh5-21[facility] Medical CenterComment on above:Performed By: #### [id number] #### [facility] [address], [place] [address]SUR w/ Auto Diffon 42-22-4301Tvqnqqug Absolute0.0 E9/LNormal 0.0-0.2FPremier Health Miami Valley Hospital SouthComment on above:Performed By: #### [id number] #### [facility] [address], [place] [address]Qcwnjfjjj/100 WBC (Bld)0.4 %Normal0.0-2.0[facility] Medical CenterComment on above:Performed By: #### [id number] #### [facility] Laboratory [address], [place] [address]Aia Absolute0.2 E9/LNormal0.0-0.5FPremier Health Miami Valley Hospital South Comment on above:Performed By: #### [id number] #### [facility] Laboratory [address], [place] [address]Artoncvbhzn/100 WBC (Bld)2.3 %Normal0.0-8.0[facility] Medical CenterComment on above:Performed By: #### [id number] #### [facility] [address], [place] [address]Stnzkoimxwu distribution width (RBC) [Ratio]20.0 %High10.9-14.2 [facility] Medical CenterComment on above:Performed By: #### [id number] #### [facility] Laboratory [address] [place] [address]Vflgmdkkhw (Bld) [Volume fraction]33.0 %Low37.7-49.0[facility] Medical CenterComment on above:Performed By: #### [id number] #### [facility] Laboratory [address] [place] [address]Mokubunxkp (Bld) [Mass/Vol]10.6 g/dLLow13.5-17.5FPremier Health Miami Valley Hospital SouthComment on above:Performed By: #### [id number] #### [facility] [address] [place] [address]Psxtu Absolute0.7 E9/LLow1.0-4.0[facility] Comment on above:Performed By: #### [id number] #### [facility] [address] [place] [address]Vgxnogdpdcq/100 WBC (Bld)9.6 %Low14.0-50.0[facility] Medical CenterComment on above:Performed By: #### [id number] #### [facility] Laboratory [address] [place] [address]RRF (RBC) [Entitic mass]27.3 mjCztlmn23.0-34.0[facility] CenterComment on above:Performed By: #### [id number] #### [facility] Laboratory [address], [place] [address]TGIJ (RBC) [Mass/Vol]32.2 g/uSSoilvi08.4-36.0[facility] CenterComment on above:Performed By: #### [id number] #### [facility] Laboratory [address], [place] [address]QXT (RBC) [Entitic vol]84.6 oRNbibcg81.0-100.0[facility] CenterComment on above:Performed By: #### [id number] #### [facility] Laboratory [address] [place] [address]Ztmi Absolute0.9 E9/LNormal0.2-1.0[facility] Comment on above:Performed By: #### [id number] #### [facility] Laboratory [address], [place] [address]Kjgvbmfms/100 WBC (Bld)11.6 %Normal4.0-14.0[facility] CenterComment on above:Performed By: #### [id number] #### [facility] Laboratory [address] [place] [address]Syfgxa Absolute5.7 E9/LNormal2.0-7.5FPremier Health Miami Valley Hospital South Comment on above:Performed By: #### [id number] #### [facility] Laboratory [address] [place] [address]Pmmttx Auto76.1 %High36.0-75.0[facility] Comment on above:Performed By: #### [id number] #### [facility] Laboratory [address] [place] [address]Zpyquruq328.0 E9/UZjrzdj203.0-500.0[facility] Comment on above:Performed By: #### [id number] #### [facility] Laboratory [address], [place] [address]Yzplstsl mean volume (Bld) [Entitic vol]9.0 fLNormal6.4-10.8 [facility] CenterComment on above:Performed By: #### [id number] #### [facility] Laboratory [address], [place] [address]NME2.9 E12/LLow4.3-5.9[facility] Medical CenterComment on above:Performed By: #### [id number] #### [facility] Laboratory [address] [place] [address]UGZ4.5 E9/LNormal4.0-11.0[facility] Centerer [facility] HospitalComment on above:Performed By: #### [id number] #### [facility] Laboratory [address] [address]OYGOQNASBKgiqfbu By: Lab Amena on 18-29-1391Iypybsn [Mass/Vol]204 mg/jPNjux86 - 99 mg/dLMARY [facility]UR[facility] POC SubsectionComment on above:Result Comment: Notified RN/MDPOC Device [id number] 1Invalid Interpretation Code FT POC SubsectionPOC UsernameVOLLMAR, HANNAHInvalid Interpretation CodeFT POC SubsectionSodium [Moles/Vol][id number] mmol/LInvalid Interpretation CodeMARY [facility]LEY [facility] POC SubsectionGlucose [Mass/Vol]212 mg/yTFmcc22 - 99 mg/dLMARY HURLEY H[facility] POC Subsection Comment on above:Result Comment: Notified RN/MDPOC Device [id number] 1 Invalid Interpretation CodeFT POC SubsectionPOC UsernameVOLLMAR, HANNAHInvalid Interpretation CodeMARY [facility] POC SubsectionSodium [Moles/Vol][id number] mmol/LInvalid Interpretation CodeMARY [facility]LEY [facility] POC SubsectionCHEMISTRYOrdered By: SYSTEM SYSTEM on 84-42-0413Zeyig gap [Moles/Vol]12 mmol/LNormal6 - 16 mEq/LRemisol ChemCalcium [Mass/Vol]8.7 mg/dLLow8.9 - 11.1 mg/dLRemisol ChemChloride [Moles/Vol]102 mmol/L Cfwdnc816 - 111 mmol/LRemisol ChemCO2 [Moles/Vol]27 mmol/UIsjeod36 - 31 mmol/L Remisol ChemCreatinine [Mass/Vol]1.6 mg/dLHigh0.5 - 1.3 mg/dLRemisol Chem GFR/1.73 sq M.predicted MDRD (S/P/Bld) [Vol rate/Area]42 mL/min/1.73 m2Low >=59mL/min/1.73 d5Tjlaaaf ChemGlucose [Mass/Vol]233 mg/gBKxsh74 - 199 mg/dL Remisol ChemPotassium [Moles/Vol]4.3 mmol/LNormal3.5 - 5.3 mmol/LRemisol Chem Sodium [Moles/Vol]137 mmol/NPibdwp762 - 145 mmol/LRemisol ChemUrea nitrogen [Mass/Vol]35 mg/dLHigh5 - 21 mg/dLRemisol ChemUrea nitrogen/Creatinine [Mass ratio]22 mg/pgPulh32 - 20Remisol ChemCapillary Glucose POCon 57-95-6797Iestuce [Mass/Vol]204 mg/mGZasl13-37HijifbUniversity Hospitals Elyria Medical CenterComment on above:Result Comment: Notified RN/MDPerformed By: #### [id number] ####[facility] [address] [place], [place] [address]Iaifyan [Mass/Vol]212 mg/dL Ptvu68-11XubiojUniversity Hospitals Elyria Medical CenterComment on above:Result Comment: Notified RN/MDPerformed By: #### [id number] #### [facility] Laboratory [address] [place], [place] [address]Xtjgancdr Note-Nursingon 54-12-4698Moluhmrsi Note-Nursing Discharge Note-Nursing NADIR BETH :1940 Visit Date:04/14/2025 Inpatient Discharge Instructions Your Care Team Admitting Physician - Layne VERDUGO DO Consulting Physician - Clover Walker MD [facility] Wound, XXXX Reason for Your Visit AMS [...] LU OLMEDO PA-C Where: [facility] [address] [place] [address]- New Follow Up Appointments after Discharge Follow Up with Neurology When: Within 2 to 4 weeks Comments: Call for followup appointment Where: [phone] Medications What How Much When Why Instructions [...] Mouth Every day 04/19/2025 (more content not included)...[facility] CenterHEMATOLOGYOrdered By: SYSTEM SYSTEM on 17-56-7538Rdyvtpuri/100 WBC (Bld)0.4 %Normal0.0 - 2.0 % Remisol [...] 50.0 % Remisol HemeMCH (RBC) [Entitic mass]27.3 dkTbhwfs50.0 - 34.0 pgRemisol HemeMCHC (RBC) [Mass/Vol]32.2 g/qXExhhhi58.4 - 36.0 gm/dLRemisol HemeMCV (RBC) [Entitic vol]84.6 eQOkkstu01.0 - 100.0 fLRemisol HemeMonocytes (Bld) [#/Vol]0.9 E9/L Normal0.2 - 1.0 E9/LRemisol HemeMonocytes/100 WBC (Bld)11.6 %Normal4.0 - 14.0 % Remisol HemeNeutrophils (Bld) [#/Vol]5.7 E9/LNormal2.0 - 7.5 E9/LRemisol Heme Neutrophils/100 WBC (Bld)76.1 %High36.0 - 75.0 %Remisol HemePlatelet mean volume (Bld) [Entitic vol]9.0 fLNormal6.4 - 10.8 fLRemisol HemePlatelets (Bld) [#/Vol] 234.0 E9/LZmyfmw977.0 - 500.0 E9/LRemisol HemeRBC (Bld) [#/Vol]3.9 E12/LLow4.3 - 5.9 E12/LRemisol HemeWBC corrected for nucl RBC Auto (Bld) [#/Vol]7.5 E9/L Normal4.0 - 11.0 E9/LRemisol HemeInpatient Clinical Summaryon 04-18-2025 Inpatient Clinical SummaryInpatient Clinical Summary [address] [address] Clinical Summary Person Information: Name: NADIR BETH Age: 85 Years : 1940 Sex: Male PCP: Van Youssef MD Marital Status: Race: White Ethnicity: Non- or Language: [place] Visit Id: Visit Reason: Altered mental status; Headache; Potential stroke; stroke Speciality: Acuity: Enc Type: Inpatient Med Service: Medical Arrival: 04/14/2025 16:53:36 Discharge: Dispo Type: Admitted as IP to this Hosp Address: [address] [place] [address] [id number] Provider Notes: Diagnosis: 1:CVA (cerebrovascular accident); 2:Atrial [...] VERDUGO DO Consulting Physician: Clover Walker MD; [facility] Wound, XXXX Referring Physician: Follow up: With: Address: When: Neurology [phone] Within 2 to 4 weeks Comments: Call for followup appointment Type Location Start Finish [facility] Office Visit [facility] 06/11/2025 11:40 AM 06/11/2025 12:00 PM Confirmed Patient Education Information: Type 2 Diabetes Mellitus, Diagnosis, Adult; Atrial Fibrillation; Core Measures: Stroke (Cerebrovascular Accident) [facility], (Custom)[facility] CenterInpatient Patient Summaryon 55-84-5108Wtysyvsbk Patient SummaryInpatient Patient Summary [place] [address] Patient Discharge Instructions PERSON INFORMATION Name: NADIR [...] None Follow up: With: Address: When: Neurology [phone] Within 2 to 4 weeks Comments: Call for followup appointment In the event that this physician does not participate in your insurance network, please consult with your insurance company to find a nearby participating provider. Type Location Start [facility] Office Visit [facility] [place] 06/11/2025 11:40 AM 06/11/2025 12:00 PM Confirmed [...] Dose: Next Dose: omepra (more content not included)...[facility] Interdisciplinary Note - Case Manageron 11-85-1122Svvkzsxdsmswyekkr Note - Case ManagerInterdisciplinary Note - Pediatric Audiologist Patient awake and alert eating breakfast in bed. and dtr at bedside. [facility] patient has completed 3MN and can dc when medically clear. [place]. Patient will dc today. Denies any further concerns.[facility] CenterComment on above:Result Comment: Electronically Signed By: Jihan De Oliveira\.br\Date and Time Signed: 04/18/25 09:36 EDTeGFRon 39-60-4054tSCM87 mL/min/1.73 m2Low>=59 [facility] CenterComment on above:Performed By: #### [id number] #### [facility] Laboratory [address], [place] [address]OTBna 10-20-1171Dzgup gap [Moles/Vol]15 mmol/LNormal6-16[facility] Medical CenterComment on above:Performed By: #### [id number] #### [facility] Laboratory [address], [place] [address]MGK/Creat Ratio21 No YrdyzYbyq60-95MqseafUniversity Hospitals Elyria Medical Center Comment on above:Performed By: #### [id number] #### [facility] Laboratory [address], [place] [address]Kxatlwe [Mass/Vol]8.8 mg/dLLow8.9-11.1FPremier Health Miami Valley Hospital SouthComment on above:Performed By: #### [id number] #### [facility] Laboratory [address], [place] [address]Muhturyr [Moles/Vol]104 mmol/ODzdpfh340-642OpyblaUniversity Hospitals Elyria Medical CenterComment on above:Performed By: #### [id number] #### [facility] Laboratory [address], [place] [address]UL7 [Moles/Vol]26 mmol/UPpxctm88-96GwijomUniversity Hospitals Elyria Medical Center Comment on above:Performed By: #### [id number] #### [facility] Laboratory [address], [place] [address]Bhhuleovqs [Mass/Vol]1.6 mg/dLHigh0.5-1.3FPremier Health Miami Valley Hospital SouthComment on above:Performed By: #### [id number] #### [facility] Laboratory [address], [place] [address]Uoraiuf [Mass/Vol]222 mg/gATkzh57-412OpbfkhUniversity Hospitals Elyria Medical CenterComment on above:Performed By: #### [id number] #### [facility] Laboratory [address], [place] [address]Btwpugqbf [Moles/Vol]4.1 mmol/LNormal3.5-5.3FPremier Health Miami Valley Hospital SouthComment on above:Performed By: #### [id number] #### [facility] Laboratory [address], [place] [address]Hbqqbt [Moles/Vol]141 mmol/MSbkcch704-233UorghuUniversity Hospitals Elyria Medical CenterComment on above:Performed By: #### [id number] #### [facility] Laboratory [address], [place] [address]Ybik nitrogen [Mass/Vol]34 mg/dLHigh5-21[facility] Medical CenterComment on above:Performed By: #### [id number] #### [facility] Laboratory [address], [place] [address]AOU w/ Auto Diffon 20-78-3859Eyszipfm Absolute0.1 E9/LNormal 0.0-0.2FPremier Health Miami Valley Hospital SouthComment on above:Performed By: #### [id number] #### [facility] Laboratory [address], [place] [address]Fzcffadap/100 WBC (Bld)0.6 %Normal0.0-2.0[facility] Medical CenterComment on above:Performed By: #### [id number] #### [facility] Laboratory [address] [place] [address]Rue Absolute0.1 E9/LNormal0.0-0.5FPremier Health Miami Valley Hospital South Comment on above:Performed By: #### [id number] #### [facility] Laboratory [address] [place] [address]Fmpgwbkeqzj/100 WBC (Bld)0.6 %Normal0.0-8.0[facility] Medical CenterComment on above:Performed By: #### [id number] #### [facility] Laboratory [address] [place] [address]Mfgajinkafs distribution width (RBC) [Ratio]20.3 %High10.9-14.2 [facility] Medical CenterComment on above:Performed By: #### [id number] #### [facility] Laboratory [address] [place] [address]Tsadtxmain (Bld) [Volume fraction]34.9 %Low37.7-49.0[facility] Medical CenterComment on above:Performed By: #### [id number] #### [facility] Laboratory [address] [place] [address]Lsuamnilei (Bld) [Mass/Vol]11.2 g/dLLow13.5-17.5FPremier Health Miami Valley Hospital SouthComment on above:Performed By: #### [id number] #### [facility] Laboratory [address] [place] [address]Lfhrv Absolute0.7 E9/LLow1.0-4.0[facility] Comment on above:Performed By: #### [id number] #### [facility] Laboratory [address] [place] [address]Zqwpordmeoy/100 WBC (Bld)7.1 %Low14.0-50.0[facility] Medical CenterComment on above:Performed By: #### [id number] #### [facility] Laboratory [address], [place] [address]MTA (RBC) [Entitic mass]27.5 hnBtgnzw13.0-34.0[facility] CenterComment on above:Performed By: #### [id number] #### [facility] Laboratory [address], [place] [address]LPWY (RBC) [Mass/Vol]32.2 g/tEVyvisq83.4-36.0[facility] CenterComment on above:Performed By: #### [id number] #### [facility] Laboratory [address] [place] [address]WPB (RBC) [Entitic vol]85.4 fODuilvy80.0-100.0[facility] CenterComment on above:Performed By: #### [id number] #### [facility] Laboratory [address] [place] [address]Txxj Absolute1.4 E9/LHigh0.2-1.0[facility] Comment on above:Performed By: #### [id number] #### [facility] Laboratory [address] [place] [address]Uemvoromw/100 WBC (Bld)13.7 %Normal4.0-14.0[facility] Medical CenterComment on above:Performed By: #### [id number] #### [facility] Laboratory [address] [place] [address]Lqicqz Absolute7.7 E9/LHigh2.0-7.5FPremier Health Miami Valley Hospital South Comment on above:Performed By: #### [id number] #### [facility] Laboratory [address], [place] [address]Zrtvtf Auto78.0 %High36.0-75.0[facility] Comment on above:Performed By: #### [id number] #### [facility] Laboratory [address], [place] [address]Edxtzqqc071.0 E9/QEzaamp479.0-500.0[facility] Comment on above:Performed By: #### [id number] #### [facility] Laboratory [address], [place] [address]Dwyxjmik mean volume (Bld) [Entitic vol]9.1 fLNormal6.4-10.8 [facility] Medical CenterComment on above:Performed By: #### [id number] #### [facility] Laboratory [address], [place] [address]TOO1.1 E12/LLow4.3-5.9[facility] Medical CenterComment on above:Performed By: #### [id number] #### [facility] Laboratory [address], [place] [address]DZN3.9 E9/LNormal4.0-11.0[facility] Medical CenterComment on above:Performed By: #### [id number] #### [facility] Laboratory [address], [place] [address]GFRLAUMAMKnsqqiq By: Lab Randar on 74-78-7396Aqnrctm [Mass/Vol]203 mg/bNBtca84 - 99 mg/dLMARY [facility]URLEY [facility] POC SubsectionComment on above:Result Comment: Notified RN/MDPOC Device [id number] 1Invalid Interpretation Code [facility] POC SubsectionPOC UsernamJIMENA PerezInvalid Interpretation CodeMARY HURLEY [facility] POC SubsectionSodium [Moles/Vol][id number] mmol/LInvalid Interpretation CodeMARY HURLEY [facility] POC SubsectionCHEMISTRYOrdered By: SYSTEM SYSTEM on 97-66-6849Ukspq gap [Moles/Vol] 15 mmol/LNormal6 - 16 mEq/LRemisol ChemCalcium [Mass/Vol]8.8 mg/dLLow8.9 - 11.1 mg/dLRemisol ChemChloride [Moles/Vol]104 mmol/VDtmmji755 - 111 mmol/LRemisol ChemCO2 [Moles/Vol]26 mmol/KHmmcmk54 - 31 mmol/LRemisol ChemCreatinine [Mass/Vol]1.6 mg/dLHigh0.5 - 1.3 mg/dLRemisol ChemGFR/1.73 sq M.predicted MDRD (S/P/Bld) [Vol rate/Area]42 mL/min/1.73 m2Low>=59mL/min/1.73 f2Wdbajft Chem Glucose [Mass/Vol]222 mg/qIAfrn95 - 199 mg/dLRemisol ChemPotassium [Moles/Vol] 4.1 mmol/LNormal3.5 - 5.3 mmol/LRemisol ChemSodium [Moles/Vol]141 mmol/LNormal 135 - 145 mmol/LRemisol ChemUrea nitrogen [Mass/Vol]34 mg/dLHigh5 - 21 mg/dL Remisol ChemUrea nitrogen/Creatinine [Mass ratio]21 mg/jbJclb50 - 20Remisol Chem Capillary Glucose POCon 72-58-8700Ikyhmcr [Mass/Vol]203 mg/gXBpfd27-62AfhavhUniversity Hospitals Elyria Medical CenterComment on above:Result Comment: Notified RN/MDPerformed By: #### [id number] #### [facility] Laboratory [address], [place] [address]Pppnawf [Mass/Vol]240 mg/vDLxsg90-11Gcrydm[address] Comment on above:Result Comment: Notified RN/MDPerformed By: #### [id number] #### [facility] Laboratory [address], [place] [address]Yaqkwmg [Mass/Vol]304 mg/rPNcxz97-49Ucbogj[address] Comment on above:Result Comment: Notified RN/MDPerformed By: #### [id number] #### [facility] Laboratory [address], [place] [address]Umawyii [Mass/Vol]191 mg/pWIrnq79-73Qyrtgc[address] Comment on above:Result Comment: Notified RN/MDPerformed By: #### [id number] #### [facility] Laboratory [address], [place] [address]Nhkgrv Queryon 26-69-8168Ildpyc QueryCoding Query From: Tanesha Mcdowell RN To: [...] ]Acute on Chronic Diastolic (Preserved EF) Heart FailureNoGalion HospitalCoding QueryCoding Query From: Tanesha Mcdowell RN To: [...] , M __]Demand Ischemia (without a myocardial infarction)[facility] CenterHEMATOLOGYOrdered By: SYSTEM SYSTEM on 28-38-5787Mywxdztqy/100 WBC (Bld) 0.6 %Normal0.0 - 2.0 %Remisol [...] 27.0 - 34.0 pgRemisol HemeMCHC (RBC) [Mass/Vol]32.2 g/dSDnwwjr91.4 - 36.0 gm/dL Remisol HemeMCV (RBC) [Entitic vol]85.4 fHBcedkx68.0 - 100.0 fLRemisol Heme Monocytes (Bld) [#/Vol]1.4 E9/LHigh0.2 - 1.0 E9/LRemisol HemeMonocytes/100 WBC (Bld)13.7 %Normal4.0 - 14.0 %Remisol HemeNeutrophils (Bld) [#/Vol]7.7 E9/LHigh 2.0 - 7.5 E9/LRemisol HemeNeutrophils/100 WBC (Bld)78.0 %High36.0 - 75.0 % Remisol HemePlatelet mean volume (Bld) [Entitic vol]9.1 fLNormal6.4 - 10.8 fL Remisol HemePlatelets (Bld) [#/Vol]237.0 E9/OBfgycs155.0 - 500.0 E9/LRemisol HemeRBC (Bld) [#/Vol]4.1 E12/LLow4.3 - 5.9 E12/LRemisol HemeWBC corrected for nucl RBC Auto (Bld) [#/Vol]9.9 E9/LNormal4.0 - 11.0 E9/LRemisol Heme Interdisciplinary Note - Case Manageron 10-09-5805Fwpcvthhsrxebijlu Note - Case ManagerInterdisciplinary Note - Pediatric Audiologist Patient awake and alert eating breakfast in bed. and dtr at bedside. [facility], patient has completed 3MN and can dc when medically clear. and dtr unsure if they will transport patient or if they will need transport set up. Dtr states she would like to see how patient does with PT first. Denies any further concerns. Family will transport [facility] CenterComment on above:Result Comment: Electronically Signed By: Jihan De Oliveira\.br\Date and Time Signed: 04/17/25 10:54 EDTInterdisciplinary Note - Case ManagerInterdisciplinary Note - Pediatric Audiologist Patient awake and alert eating breakfast in bed. and dtr at bedside. [facility], patient has completed 3MN and can dc when medically clear. and dtr unsure if they will transport patient or if they will need transport set up. Dtr states she would like to see how patient does with PT first. Denies any further concerns.[facility] CenterComment on above:Result Comment: Electronically Signed By: Jihan De Oliveira\.br\Date and Time Signed: 04/17/25 08:41 EDTRPR with Conf Rfxon [id number] QualNon-ReactiveInvalid Interpretation CodeNon ReactiveUniversity Hospitals Elyria Medical CenterComment on above:Result Comment: Performed at: [facility] [address] [id number] PhD Huan Banksformed By: #### [id number] #### [facility] [address], [place] [address]nDEPjp 58-30-8107fXAG95 mL/min/1.73 m2Low>=59[facility] Elyria Medical CenterComment on above:Performed By: #### [id number] #### [facility] [address], [place] [address]EMFyd 79-05-2126Vkpoj gap [Moles/Vol]18 mmol/LHigh6-16[facility] Medical CenterComment on above:Performed By: #### [id number] #### [facility] [address], [place] [address]SYG/Creat Ratio19 No UngowRlfkvc27-81KzejlgUniversity Hospitals Elyria Medical CenterComment on above:Performed By: #### [id number] #### [facility] [address], [place] [address]Otytuhb [Mass/Vol]9.2 mg/dLNormal8.9-11.1FPremier Health Miami Valley Hospital SouthComment on above:Performed By: #### [id number] #### [facility] [address], [place] [address]Hcdlpggm [Moles/Vol]103 mmol/FVyxsqc499-203NtzitgUniversity Hospitals Elyria Medical CenterComment on above:Performed By: #### [id number] #### [facility] [address], [place] [address]OQ9 [Moles/Vol]24 mmol/ILnrkoq66-15JjdevgUniversity Hospitals Elyria Medical Center Comment on above:Performed By: #### [id number] #### [facility] [address], [place] [address]Ntpkxrqfuw [Mass/Vol]1.7 mg/dLHigh0.5-1.3FPremier Health Miami Valley Hospital SouthComment on above:Performed By: #### [id number] #### [facility] [address], [place] [address]Cwqrwsi [Mass/Vol]212 mg/tIFwap02-276VyspmuUniversity Hospitals Elyria Medical CenterComment on above:Performed By: #### [id number] #### [facility] [address], [place] [address]Jjeykdden [Moles/Vol]3.9 mmol/LNormal3.5-5.3FPremier Health Miami Valley Hospital SouthComment on above:Performed By: #### [id number] #### [facility] [address], [place] [address]Zlptit [Moles/Vol]141 mmol/MQdsneo217-935ZvihlkUniversity Hospitals Elyria Medical CenterComment on above:Performed By: #### [id number] #### [facility] [address], [place] [address]Sret nitrogen [Mass/Vol]33 mg/dLHigh5-21[facility] Medical CenterComment on above:Performed By: #### [id number] #### [facility] [address] [place] [address]HLR w/ Auto Diffon 61-71-5802Pltkgcea Absolute0.0 E9/LNormal 0.0-0.2FPremier Health Miami Valley Hospital SouthComment on above:Performed By: #### [id number] #### [facility] [address] [place] [address]Kpkhzvtdl/100 WBC (Bld)0.1 %Normal0.0-2.0[facility] Medical CenterComment on above:Performed By: #### [id number] #### [facility] [address] [place] [address]Tzf Absolute0.0 E9/LNormal0.0-0.5FPremier Health Miami [facility] Hospital South Comment on above:Performed By: #### [id number] #### [facility] [address] [place] [address]Qnowqdnxzrc/100 WBC (Bld)0.2 %Normal0.0-8.0[facility] Medical CenterComment on above:Performed By: #### [id number] #### [facility] [address] [place] [address]Nkhwcdpggrd distribution width (RBC) [Ratio]20.4 %High10.9-14.2 [facility] Medical CenterComment on above:Performed By: #### [id number] #### [facility] [address] [place] [address]Afnvruxhyr (Bld) [Volume fraction]37.2 %Low37.7-49.0[facility] Medical CenterComment on above:Performed By: #### [id number] #### [facility] [address] [place] [address]Xievpsiujf (Bld) [Mass/Vol]11.9 g/dLLow13.5-17.5FPremier Health Miami Valley Hospital SouthComment on above:Performed By: #### [id number] #### [facility] [address] [place] [address]Hfizl Absolute0.7 E9/LLow1.0-4.0[facility] Comment on above:Performed By: #### [id number] #### [facility] [address] [place] [address]Mxcnjflcvvg/100 WBC (Bld)4.6 %Low14.0-50.0[facility] Medical CenterComment on above:Performed By: #### [id number] #### [facility] [address] [place] [address]JGK (RBC) [Entitic mass]27.2 lxJjmhpp45.0-34.0[facility] Medical CenterComment on above:Performed By: #### [id number] #### [facility] [address] [place] [address]FSSK (RBC) [Mass/Vol]32.0 g/wMHpleck37.4-36.0[facility] Medical CenterComment on above:Performed By: #### [id number] #### [facility] [address] [place] [address] 96[address]WNL (RBC) [Entitic vol]84.9 nMXrstwt65.0-100.0[facility] Medical CenterComment on above:Performed By: #### [id number] #### [facility] [address] [place] [address]Fvvj Absolute1.6 E9/LHigh0.2-1.0[facility] Comment on above:Performed By: #### [id number] #### [facility] [address] [place] [address]Vijkhjasn/100 WBC (Bld)10.8 %Normal4.0-14.0[facility] Medical CenterComment on above:Performed By: #### [id number] #### [facility] [address] [place] [address]Hjwfzq Urdgqitv73.3 E9/LHigh2.0-7.5FPremier Health Miami Valley Hospital South Comment on above:Performed By: #### [id number] #### [facility] [address] [place] [address]Tdfhzw Auto84.3 %High36.0-75.0[facility] Comment on above:Performed By: #### [id number] #### [facility] [address], [place] [address]Vukoermr894.0 E9/BKseqwu811.0-500.0[facility] Comment on above:Performed By: #### [id number] #### [facility] [address], [place] [address]Wbdnezco mean volume (Bld) [Entitic vol]8.7 fLNormal6.4-10.8 [facility] Medical CenterComment on above:Performed By: #### [id number] #### [facility] [address] [place] [address]HJN6.4 E12/LNormal4.3-5.9[facility] Medical CenterComment on above:Performed By: #### [id number] #### [facility] [address] [place] [address]86[address]CHB70.6 E9/LHigh4.0-11.0[facility] Medical CenterComment on above:Performed By: #### [id number] #### [facility] [address] [place] [address] 18[address]YJEGTFGEBNqsexra By: SYSTEM SYSTEM on 05-43-2139Wwohj gap [Moles/Vol]18 mmol/LHigh6 - 16 mEq/LRemisol ChemCalcium [Mass/Vol]9.2 mg/dL Normal8.9 - 11.1 mg/dLRemisol ChemChloride [Moles/Vol]103 mmol/DTeosxz892 - 111 mmol/LRemisol ChemCO2 [Moles/Vol]24 mmol/EEfapsw37 - 31 mmol/LRemisol Chem Creatinine [Mass/Vol]1.7 mg/dLHigh0.5 - 1.3 mg/dLRemisol ChemGFR/1.73 sq M.predicted MDRD (S/P/Bld) [Vol rate/Area]39 mL/min/1.73 m2Low>=59mL/min/1.73 m2 Remisol ChemGlucose [Mass/Vol]212 mg/mCWiby55 - 199 mg/dLRemisol ChemMagnesium [Mass/Vol]2.4 mg/dLNormal1.3 - 2.4 mg/dLRemisol ChemPotassium [Moles/Vol]3.9 mmol/LNormal3.5 - 5.3 mmol/LRemisol ChemSodium [Moles/Vol]141 mmol/SOcqbsw015 - 145 mmol/LRemisol ChemUrea nitrogen [Mass/Vol]33 mg/dLHigh5 - 21 mg/dLRemisol ChemUrea nitrogen/Creatinine [Mass ratio]19 mg/ccYsrsli27 - 20Remisol Chem Capillary Glucose POCon 82-28-7610Tsnoxin [Mass/Vol]265 mg/rOCyhz39-00FujicmUniversity Hospitals Elyria Medical CenterComment on above:Result Comment: Notified RN/MDPerformed By: #### [id number] #### [facility] [address], [place] [address]Dspsyra [Mass/Vol]246 mg/aZKdty27-08AvebbnUniversity Hospitals Elyria Medical Center Comment on above:Result Comment: Notified RN/MDPerformed By: #### [id number] #### [facility] [address], [place] [address]Edhtbwy [Mass/Vol]294 mg/pEIxlv37-46Gkutkb[address] [place] [address] Comment on above:Result Comment: Notified RN/MDPerformed By: #### [id number] #### [facility] [address], [place] [address]Stlaujm [Mass/Vol]195 mg/vFTdmj72-62XtionpUniversity Hospitals Elyria Medical Center Comment on above:Result Comment: Notified RN/MDPerformed By: #### [id number] #### [facility] [address], [place] [address]Gqcvpt Queryon 06-91-4780Kerwyr QueryCoding Query From: Tanesha Mcdowell RN To: [...] answer is desired or expected. Thank you!tanesha [id number] CenterHEMATOLOGYOrdered By: SYSTEM SYSTEM on 79-10-6785Zondncqxi/100 WBC (Bld) 0.1 %Normal0.0 - 2.0 %Remisol [...] 27.0 - 34.0 pgRemisol HemeMCHC (RBC) [Mass/Vol]32.0 g/wNQasidc36.4 - 36.0 gm/dL Remisol HemeMCV (RBC) [Entitic vol]84.9 mTWyobmm39.0 - 100.0 fLRemisol Heme Monocytes (Bld) [#/Vol]1.6 E9/LHigh0.2 - 1.0 E9/LRemisol HemeMonocytes/100 WBC (Bld)10.8 %Normal4.0 - 14.0 %Remisol HemeNeutrophils (Bld) [#/Vol]12.3 E9/LHigh 2.0 - 7.5 E9/LRemisol HemeNeutrophils/100 WBC (Bld)84.3 %High36.0 - 75.0 % Remisol HemePlatelet mean volume (Bld) [Entitic vol]8.7 fLNormal6.4 - 10.8 fL Remisol HemePlatelets (Bld) [#/Vol]268.0 E9/QSenvry130.0 - 500.0 E9/LRemisol HemeRBC (Bld) [#/Vol]4.4 E12/LNormal4.3 - 5.9 E12/LRemisol HemeWBC corrected for nucl RBC Auto (Bld) [#/Vol]14.6 E9/LHigh4.0 - 11.0 E9/LRemisol JuinOwkJ0lbl 61-24-8309XvF7f (Bld) [Mass fraction]9.9 %High<=5.9[facility] Comment on above:Performed By: #### [id number] #### [facility] [address] [place] [address]Rnllmchmn Clinical Summaryon 28-99-5085Xhfmasbqs Clinical SummaryInpatient Clinical Summary [address] [address] Clinical Summary Person Information: Name: NADIR BETH Age: 85 Years : 1940 Sex: Male PCP: Van Youssef MD Marital Status: Race: White Ethnicity: Non- or Language: [place] Visit Id: Visit Reason: Altered mental status; Headache; Potential stroke; stroke Speciality: Acuity: Enc Type: Inpatient Med Service: Medical Arrival: 04/14/2025 16:53:36 Discharge: Dispo Type: Admitted as IP to this Hosp Address: [address] [place] [id number] Provider Notes: Diagnosis: 1:CVA (cerebrovascular accident); 2:Atrial [...] VERDUGO DO Consulting Physician: Clover Walker MD; [facility] Cardio, XXXX; [facility] Wound, XXXX Referring Physician: Follow up: With: Address: When: Neurology [phone] Within 2 to 4 weeks Comments: Call for followup a (more content not included)...[facility] CenterInpatient Patient Summaryon 29-20-5674Wzyyhegqh Patient SummaryInpatient Patient Summary [place] [address] Patient Discharge Instructions PERSON INFORMATION Name: NADIR [...] results: Follow up: With: Address: When: Neurology [phone] Within 2 to 4 weeks Comments: Call for followup appointment In the event that this physician does not participate in your insurance network, please consult with your insurance company to find a nearby participating provider. Type Location Start Finish State URO Office Visit [facility] NAV Dominguez 06/11/2025 11:40 AM 06/11/2025 12:00 [...] times a day. [place] (more content not included)...[facility] Interdisciplinary Note - Case Manageron 42-29-6902Cfhidbbmmqagpijhr Note - Case ManagerInterdisciplinary Note - Pediatric Audiologist CRM to room 202 Patient is awake, [...] and pericardial effusion. Patient is assigned to [facility] BI DATA ARCHITECT, see notes. Patient has wound, cardiology and neurology on case. Patient is pending MRI. He is getting an ECHO now. Patient has recs from therapy for SNF. Patient spouse would like him referred to [facility]. Patient can DC there if accepted on 04/17 per 3 M needed. Patient white board updated. CRM following, contact info provided. DC plan SNF, pending [facility] accepts for SNF stayDiley Ridge Medical CenterComment on above:Result Comment: Electronically Signed By: Cierra Rouse\.mary\Date and Time Signed: 04/16/25 11:58 EDTInterdisciplinary Note - Case ManagerInterdisciplinary Note - Pediatric Audiologist CRM to room 202 Patient is awake, [...] and pericardial effusion. Patient is assigned to [facility] BI DATA ARCHITECT, see notes. Patient has wound, cardiology and neurology on case. Patient is pending MRI. He is getting an ECHO now. Patient has recs from therapy for SNF. Patient spouse would like him referred to [facility]. Patient can DC there if accepted on 04/17 per 3 M needed. Patient white board updated. CRM following, contact info provided. [facility] HospitalComment on above:Result Comment: Electronically Signed By: Cierra Rouse\.br\Date and Time Signed: 04/16/25 09:48 EDTInterdisciplinary Note - Nursingon 25-60-3285Fokqvdwtikzjvkygt Note - NursingInterdisciplinary Note - Nursing pt has a stasis ulcer on left lower leg. 1.2cm long by 1.2cm wide by 0.1 depth. staff can continue with antibiotic ointment, or may use maya and dry dressing change every other day. follow up out patient wound clinicNoGalion HospitalInterdisciplinary Note - OTon 05-41-5150Vzpgathwkmorjodwb Note - OTInterdisciplinary Note - OT OT [facility] six clicks score 16/24 = SNF. Patient requires MIN A w/ sit to stand transfers at eob, Min- mod A w dynamic standing adls. Pt requires mod vc for walker safety and sequencing w/ all functional tasks. Inpatient OT services to follow daily to progress as tolerates w/ self help skills.[facility] CenterMRI Brain w/o Contraston 41-26-4565GJF Brain w/o ContrastExam Date/Time: 04/16/2025 11:05 EDT [...] Thom Rashid MD Transcribed by: MARII Technologist: JPNiecyUniversity Hospitals Elyria Medical CenterMagnesiumon 95-60-5449Zuiksryqe [Mass/Vol]2.4 mg/dLNormal1.3-2.4[facility] Comment on above:Performed By: #### [id number] #### Nick [facility] Laboratory [address], [place] [address]sYAUpa 53-69-5095kBOJ19 mL/min/1.73 m2Low>=59[facility] Medical CenterComment on above:Performed By: #### [id number] #### Nick [facility] [address], [place] [address]ANGer 24-38-1833Ssior gap [Moles/Vol]20 mmol/LHigh6-16[facility] Medical CenterComment on above:Performed By: #### [id number] #### Nick [facility] [address], [place] [address]DHZ/Creat Ratio18 No HienxMrzhio77-08FssuotUniversity Hospitals Elyria Medical CenterComment on above:Performed By: #### [id number] #### [facility] [address], [place] [address]Pytivgh [Mass/Vol]9.4 mg/dLNormal8.9-11.1FPremier Health Miami Valley Hospital SouthComment on above:Performed By: #### [id number] #### [facility] [address], [place] [address]Xbhlnzaf [Moles/Vol]102 mmol/HBvniog147-870VhgzfyUniversity Hospitals Elyria Medical CenterComment on above:Performed By: #### [id number] #### [facility] [address], [place] [address]HS8 [Moles/Vol]24 mmol/JFlstjh97-90HuajxdUniversity Hospitals Elyria Medical Center Comment on above:Performed By: #### [id number] #### [facility] [address], [place] [address]Uvxuzhvwxa [Mass/Vol]1.7 mg/dLHigh0.5-1.3FPremier Health Miami Valley Hospital SouthComment on above:Performed By: #### [id number] #### [facility] [address], [place] [address]Jmccswr [Mass/Vol]208 mg/iUYlpb95-670RjmvkkUniversity Hospitals Elyria Medical CenterComment on above:Performed By: #### [id number] #### [facility] [address], [place] [address]Yqmvucqol [Moles/Vol]4.0 mmol/LNormal3.5-5.3FPremier Health Miami Valley Hospital SouthComment on above:Performed By: #### [id number] #### [facility] [address], [place] [address]Zllpkz [Moles/Vol]142 mmol/HBfvrwl418-896NbkfymUniversity Hospitals Elyria Medical CenterComment on above:Performed By: #### [id number] #### [facility] [address], [place] [address]Ndvs nitrogen [Mass/Vol]30 mg/dLHigh5-21[facility] HospitalComment on above:Performed By: #### [id number] #### Romero [facility] [address] [place], [place] [address]YGTOYDHNEWyfoslg By: SYSTEM SYSTEM on 84-39-9503Fbikzwnevxe [Mass/Vol]210 mg/qVOgam337 - 200 mg/dLRemisol ChemCholesterol in HDL [Mass/Vol] 88 mg/dLInvalid Interpretation CodeRemisol ChemComment on above:Result Comment: '>= 60 LOW RISK' '<= 40 HIGH RISK'Cholesterol in LDL [Mass/Vol]107 mg/dLNormal<=129mg/dLRemisol ChemCholesterol in VLDL [Mass/Vol]9 mg/dLNormal7 - 40 mg/dLRemisol ChemCobalamin (Vitamin B12) [Mass/Vol]573 pg/qMWqkbgt44 - 1500 pg/mLRemisol ChemFolate [Mass/Vol]ng/mLNormal>=6.7ng/mLRemisol ChemMagnesium [Mass/Vol]2.6 [...] I Instructions For Use, Roxane Blanca, June 2018)TSH Qn0.50 m[IU]/LNormal0.34 - 5.60 mcIU/mLRemisol ChemCHEMISTRY Ordered By: Priyanka Daly on 69-40-0850WkB3c (Bld) [Mass fraction]9.9 %High <=5.9%[facility] ChemAutoSSCOAGULATIONOrdered By: Deb Maza on 87-17-7538vLJL Coag (PPP) [Time]45.1 sHigh25.1 - 36.5 second(s)[facility] Auto CoagComment on above: Interpretive Data: Parameter [...] the same coagulation reagent and instrumentation as [facility]. Currently there are no coagulation studies available worldwide for children to 14 days, andno normal ranges. Heparin therapeutic range (represented by Anti-Factor Xa activity of 0.2 - 0.4 U/mL) corresponds to PTT of 56.6 - 109.0 sec.INR Coag (PPP) [Relative time]0.95 {INR}Invalid Interpretation CodeMARY HURLEY HOSPITAL [facility] Auto CoagComment on above:Interpretive Data: INR results are specifically intended to assess patients stabilized on long-term Anticoagulation therapy suggested INR s Less Intensive Anticoagulation 2.0 3.0 Conventional Range 3.0 4.5PT Coag (PPP) [Time]10.6 sNormal9.4 - 12.5 second(s) [facility] Auto CoagComment on above:Interpretive Data: 15 days [...] the same coagulation reagent and instrumentation as [facility]. Currently there are no coagulation studies available worldwide for children to 14 days, andno normal ranges.COAGULATIONOrdered By: Samir Naidu on 72-18-0549iZLA Coag (PPP) [Time]53.2 sHigh25.1 - 36.5 second(s)[facility] Auto CoagComment on above:Interpretive Data: Parameter 15 [...] the same coagulation reagent and instrumentation as [facility]. Currently there are no coagulation studies available worldwide for children to 14 days, andno normal ranges. Heparin therapeutic range (represented by Anti-Factor Xa activity of 0.2 - 0.4 U/mL) corresponds to PTT of 56.6 - 109.0 sec.INR Coag (PPP) [Relative time]0.96 {INR}Invalid Interpretation CodeMARY HURLEY HOSPITAL [facility] Auto CoagComment on above:Interpretive Data: INR results are specifically intended to assess patients stabilized on long-term Anticoagulation therapy suggested INR s Less Intensive Anticoagulation 2.0 3.0 Conventional Range 3.0 4.5PT Coag (PPP) [Time]10.8 sNormal9.4 - 12.5 second(s) [facility] Auto CoagComment on above:Interpretive Data: 15 days [...] the same coagulation reagent and instrumentation as [facility]. Currently there are no coagulation studies available worldwide for children to 14 days, andno normal ranges.Capillary Glucose POCon 38-34-3314Lzawgyc [Mass/Vol]177 mg/dL38 Simmons StreetComment on above:Result Comment: Notified RN/MD Performed By: #### [id number] #### Romero [facility] [address], [place] [address]Dipdjjl [Mass/Vol]202 mg/tFFbaq90-87Mrcupy[address] Comment on above:Result Comment: Notified RN/MDPerformed By: #### [id number] #### [facility] [address], [place] [address]Ccwbffs [Mass/Vol]216 mg/yRGiwm52-07Ivombs[address] Comment on above:Result Comment: Notified RN/MDPerformed By: #### [id number] #### [facility] [address], [place] [address]Crxeyqw [Mass/Vol]242 mg/pRVfii48-77Amzsev[address] Comment on above:Result Comment: Notified RN/MDPerformed By: #### [id number] #### [facility] [address], [place] [address]Uorci Mir 50-59-3874UI Tube CollectedYesInvalid Interpretation [facility] HospitalComment on above:Performed By: #### [id number] #### [facility] [address], [place] [address]Sxieiomx 02-23-6832Yipthh Lvl>22.3Normal>=6.7FPremier Health Miami Valley Hospital SouthComment on above:Performed By: #### [id number] #### [facility] [address], [place] [address]Yffyvnkwciju 32-05-9474Ancoatcptc (Bld) [Mass/Vol]12.2 g/dLLow 13.5-17.5FPremier Health Miami Valley Hospital SouthComment on above:Performed By: #### [id number] #### [facility] [address], [place] [address]Blopnkuofxwenrkqu Note - OTon 89-72-0836Pjufifrrsagcfsosj Note - OTInterdisciplinary Note - OT OT chart reviewed and spoke to nursing with request to hold today until pt. is more medically stable. Will recheck tomorrow.[facility] Interdisciplinary Note - Speech Languageon 38-00-8990Bjgtwsxctdogmyhwb Note - Speech LanguageInterdisciplinary Note - Speech [...] speech/language/cog up to 5x/week to address these deficits.[facility] Medical CenterLipid Panelon 04-15-2025 Cholesterol [Mass/Vol]210 mg/lKPlzj173-128BkvdfoUniversity Hospitals Elyria Medical CenterComment on above:Performed By: #### [id number] #### [facility] [address], [place] [address]Rinppmnpfrj in HDL [Mass/Vol]88 mg/dLInvalid Interpretation CodeUniversity Hospitals Elyria Medical CenterComment on above:Result Comment: '>= 60 LOW RISK' '<= 40 HIGH RISK'Performed By: #### [id number] #### [facility] [address], [place] [address]Ybuwccglknd in LDL [Mass/Vol]107 mg/dLNormal<=129[facility] Medical CenterComment on above:Performed By: #### [id number] #### [facility] [address], [place] [address]Mpqkgtojkkd in VLDL [Mass/Vol]9 mg/dLNormal7-40[facility] Medical CenterComment on above:Performed By: #### [id number] #### [facility] [address], [place] [address]Zmkwhwlhiyxg [Mass/Vol]44 mg/dLNormal<=149[facility] Medical CenterComment on above:Performed By: #### [id number] #### [facility] [address], [place] [address]Uvdxvxyciqd 39-72-5555Vyaivfave [Mass/Vol]2.6 mg/dLHigh1.3-2.4 [facility] CenterComment on above:Performed By: #### [id number] #### [facility] [address], [place] [address]PE & PTTon 58-59-1590CDI Coag (PPP) [Relative time]0.95 {INR} Invalid Interpretation CodeUniversity Hospitals Elyria Medical CenterComment on above:Result Comment: INR results are specifically intended to assess patients stabilized on long-term Anticoagulation therapy suggested INR???s ???Less Intensive Anticoagulation??? 2.0 ??? 3.0 Conventional Range 3.0 ??? 4.5Performed By: #### [id number] #### [facility] [address], [place] [address]XD00.6 second(s)Normal9.4-12.5FPremier Health [facility] Comment on above:Result Comment: 15 days - [...] the same coagulation reagent and instrumentation as [facility]. Currently there are no coagulation studies available worldwide for children to 14 days, andno normal ranges.Performed By: #### [id number] #### [facility] [address], [place] [address]UBN66.1 second(s)High25.1-36.5FPremier Health [facility] Comment on above:Result Comment: Parameter 15 days [...] the same coagulation reagent and instrumentation as [facility]. Currently there are no coagulation studies available worldwide for children to 14 days, andno normal ranges. Heparin therapeutic range (represented by Anti-Factor Xa activity of 0.2 - 0.4 U/mL) corresponds to PTT of 56.6 - 109.0 sec.Performed By: #### [id number] #### [facility] [address], [place] [address]NVI Coag (PPP) [Relative time]0.96 {INR}Invalid Interpretation [facility] HospitalComment on above:Result Comment: INR results are specifically intended to assess patients stabilized on long-term Anticoagulation therapy suggested INR???s ???Less Intensive Anticoagulation??? 2.0 ??? 3.0 Conventional Range 3.0 ??? 4.5Performed By: #### [id number] #### [facility] [address], [place] [address]IW87.8 second(s)Normal9.4-12.5FPremier Health [facility] Comment on above:Result Comment: 15 days - [...] the same coagulation reagent and instrumentation as [facility]. Currently there are no coagulation studies available worldwide for children to 14 days, andno normal ranges.Performed By: #### [id number] #### [facility] [address], [place] [address]AKH35.2 second(s)High25.1-36.5FPremier Health [facility] Comment on above:Result Comment: Parameter 15 days [...] the same coagulation reagent and instrumentation as [facility]. Currently there are no coagulation studies available worldwide for children to 14 days, andno normal ranges. Heparin therapeutic range (represented by Anti-Factor Xa activity of 0.2 - 0.4 U/mL) corresponds to PTT of 56.6 - 109.0 sec.Performed By: #### [id number] #### [facility] [address], [place] [address]Rekizriv Counton 60-12-4024Fyzbdcvy389.0 E9/SZmlhqk873.0-500.0 [facility] CenterComment on above:Performed By: #### [id number] #### [facility] [address], [place] [address]Vksjzpcwh Laboratory TestingOrdered By: Generated DomainUser on 87-95-5998Xllqbu Ab RPR Ql (S)Non-ReactiveInvalid Interpretation CodeNon ReactiveMARY H[facility]LEY [facility] SendOutsSSComment on above:Result Comment: Performed at: [facility] [address] [id number] PhD Huan Gupta With T4fr Reflexon 61-84-7839ETF Qn0.50 m[IU]/LNormal0.34-5.60[facility] CenterComment on above:Performed By: #### [id number] #### [facility] [address], [place] [address]Dcjyjhzpto 42-53-9847Xitfiunn HS62.60 pg/aSWeimlpdy85.90-38.40 [facility] CenterComment on above:Result Comment: Critical Result Verified by [...] Sensitivity Troponin I Instructions For Use, Roxane Redcrest, June 2018)Performed By: #### [id number] #### [facility] [address], [place] [address]MP with Cult Rflxon 42-88-6171Xubtf (U)Light-YellowNormalYellow [facility] CenterComment on above:Result Comment: Microscopic readings are only performed on those samples that meet specific criteria set forth by [facility].Performed By: #### [id number] #### [facility] [address], [place] [address]Gqatznz Ql (U)1+ mg/dLAbnormalNegativeUniversity Hospitals Elyria Medical CenterComment on above:Performed By: #### [id number] #### [facility] [address], [place] [address]HH BloodTraceAbnormalNegativeUniversity Hospitals Elyria Medical CenterComment on above:Performed By: #### [id number] #### [facility] [address], [place] [address]EE ClarityClearNormalClearUniversity Hospitals Elyria Medical CenterComment on above:Performed By: #### [id number] #### [facility] [address], [place] [address]SH Glucose4+ mg/dLAbnoRegency Hospital Toledo Comment on above:Performed By: #### [id number] #### [facility] [address], [place] [address]QT Leuk EstNegativeNoRegency Hospital Toledo Comment on above:Performed By: #### [id number] #### [facility] [address], [place] [address]LV NitriteNegativeNormidNegZanesville City Hospital Comment on above:Performed By: #### [id number] #### [facility] [address], [place] [address]SN pH6.0Invalid Interpretation Code5.0-9.0[facility] CenterComment on above:Performed By: #### [id number] #### [facility] [address], [place] [address]IO ProteinNegativeNounc healthNegZanesville City Hospital Comment on above:Performed By: #### [id number] #### [facility] [address], [place] [address]MG Spec Grav1.023Invalid Interpretation Code1.005-1.030[facility] CenterComment on above:Performed By: #### [id number] #### [facility] [address], [place] [address]LP UrobilinogenNegativeNoRegency Hospital ToledoComment on above:Performed By: #### [id number] #### [facility] [address], [place] [address]Cwpsjpobakis (U) [Mass/Vol]NegativeNormalNegativeUniversity Hospitals Elyria Medical CenterComment on above:Performed By: #### [id number] #### [facility] [address] [place], [place] [address]JIMDQDGWXOQdryoel By: SYSTEM SYSTEM on 00-90-2799Rnoxdxzfu Ql (U)NegativeNormalNegativemg/dLFT UA Auto SSClarity (U)Clear (04/15/25 4:58 AM)NormalClearFCLAREMORE [facility] UA Auto SSColor (U)Light-Yellow 1 (04/15/25 4:58 AM)NormalYellowFT UA Auto SSComment on above:Interpretive Data: Microscopic readings are only performed on those samples that meet specific criteria set forth by [facility].Glucose Ql (U)4+ mg/dLInvalid Interpretation CodeNegativemg/dLFT UA Auto SSHemoglobin Auto test strip (U) [Mass/Vol]Trace mg/dLInvalid Interpretation CodeNegativemg/dLMARY [facility] UA Auto SSKetones Auto test strip Ql (U)1+ mg/dLInvalid Interpretation Code Negativemg/dLFT UA Auto SSLeukocyte esterase Auto test strip Ql (U)Negative NormalNegativeLeu/uLFT UA Auto SSNitrite Auto test strip Ql (U)NegativeNormal Negativemg/dLMARY [facility] UA Auto SSpH (U)6.0 *NA* (04/15/25 4:58 AM)Invalid Interpretation Code5.0 - 9.0FT UA Auto SSProtein Ql (U)NegativeNormalNegativemg/dLMARY [facility] UA Auto SSSpecific gravity (U) [Rel density] 1.023 *NA* (04/15/25 4:58 AM)Invalid Interpretation Code1.005 - 1.030FT UA Auto SS Urobilinogen (U) [Mass/Vol]NegativeNormalNegativemg/dLMARY [facility]URLEY [facility] UA Auto SSURINALYSIS Ordered By: Nick Farmer on 55-06-1058TK Spec DescClean Catch (04/15/25 4:58 AM)NormalFT UA Auto SSVit B12on 65-06-7943Axvoqflhh (Vitamin B12) [Mass/Vol]573 pg/gLZbzuiz85-0842VhxnxvUniversity Hospitals Elyria Medical CenterComment on above: Performed By: #### [id number] #### [facility] [address], [place] [address]dPSRhu 64-36-7232eMQA41 mL/min/1.73 m2Low>=59[facility] CenterComment on above:Performed By: #### [id number] #### [facility] [address], [place] [address]FO Draw & Holdon 76-87-0816KB D&HSample drawn for Blood Ba NormalUniversity Hospitals Elyria Medical CenterComment on above:Performed By: #### [id number] #### [facility] [address] [place] [address]CRSke 81-25-5773Qirdq gap [Moles/Vol]15 mmol/LNormal6-16[facility] CenterComment on above:Performed By: #### [id number] #### [facility] [address], [place] [address]KLU/Creat Ratio16 No WyrwkDrmeti28-61FrzrarUniversity Hospitals Elyria Medical CenterComment on above:Performed By: #### [id number] #### [facility] [address] [place] [address]Trcxmnv [Mass/Vol]9.0 mg/dLNormal8.9-11.1Fisher [facility] HospitalComment on above:Performed By: #### [id number] #### [facility] [address], [place] [address]Npgtfxkm [Moles/Vol]103 mmol/ROsidbd529-936NpfjrbUniversity Hospitals Elyria Medical CenterComment on above:Performed By: #### [id number] #### [facility] [address], [place] [address]YC3 [Moles/Vol]24 mmol/JAjwnxe14-41CxhinjUniversity Hospitals E[facility]ria Medical Center Comment on above:Performed By: #### [id number] #### [facility] [address], [place] [address]Cplbatlxoo [Mass/Vol]1.8 mg/dLHigh0.5-1.3FPremier Health Miami Valley Hospital SouthComment on above:Performed By: #### [id number] #### [facility] [address], [place] [address]Cramodb [Mass/Vol]245 mg/eMNoow86-402MahmssUniversity Hospitals Elyria Medical CenterComment on above:Performed By: #### [id number] #### [facility] [address], [place] [address]Cvbskgvwi [Moles/Vol]5.0 mmol/LNormal3.5-5.3FPremier Health Miami Valley Hospital SouthComment on above:Performed By: #### [id number] #### [facility] [address] [place] [address]Mgzvkl [Moles/Vol]137 mmol/ELriemv913-303SeonphUniversity Hospitals Elyria Medical CenterComment on above:Performed By: #### [id number] #### [facility] [address] [place] [address]Wbed nitrogen [Mass/Vol]28 mg/dLHigh5-21[facility] CenterComment on above:Performed By: #### [id number] #### [facility] [address] [place] [address]PZHrs 72-73-8987Zcfwhoinmub peptide B (Bld) [Mass/Vol]512 pg/mL High5-80[facility] CenterComment on above:Performed By: #### [id number] #### [facility] [address], [place] [address]IJH w/ Auto Diffon 26-98-3181Ptvsnfoz Absolute0.1 E9/LNormal 0.0-0.2FPremier Health Miami Valley Hospital SouthComment on above:Performed By: #### [id number] #### [facility] [address] [place] [address]Ouulcnwlb/100 WBC (Bld)0.8 %Normal0.0-2.0[facility] Medical CenterComment on above:Performed By: #### [id number] #### [facility] [address], [place] [address]Joo Absolute0.1 E9/LNormal0.0-0.5FPremier Health [facility] Comment on above:Performed By: #### [id number] #### [facility] [address], [place] [address]Omxdkhevmxn/100 WBC (Bld)1.5 %Normal0.0-8.0[facility] CenterComment on above:Performed By: #### [id number] #### [facility] [address], [place] [address]Eztsziktarz distribution width (RBC) [Ratio]19.7 %High10.9-14.2 [facility] CenterComment on above:Performed By: #### [id number] #### [facility] [address], [place] [address]Gdzheohjhs (Bld) [Volume fraction]33.7 %Low37.7-49.0[facility] Medical CenterComment on above:Performed By: #### [id number] #### [facility] [address], [place] [address]Lxqfmrvelh (Bld) [Mass/Vol]11.0 g/dLLow13.5-17.5FPremier Health Miami Valley Hospital SouthComment on above:Performed By: #### [id number] #### [facility] [address], [place] [address]Lnbqt Absolute0.6 E9/LLow1.0-4.0[facility] Comment on above:Performed By: #### [id number] #### [facility] [address], [place] [address]Iylyvlpwsdj/100 WBC (Bld)7.8 %Low14.0-50.0[facility] CenterComment on above:Performed By: #### [id number] #### [facility] [address], [place] [address]HNR (RBC) [Entitic mass]27.5 mfLzzueq53.0-34.0[facility] CenterComment on above:Performed By: #### [id number] #### [facility] [address] [place] [address]GSDK (RBC) [Mass/Vol]32.7 g/uXQqusnp05.4-36.0[facility] CenterComment on above:Performed By: #### [id number] #### [facility] [address] [place] [address]OMW (RBC) [Entitic vol]84.0 wZJudxnw04.0-100.0[facility] CenterComment on above:Performed By: #### [id number] #### [facility] [address] [place] [address]Oogw Absolute0.8 E9/LNormal0.2-1.0[facility] Comment on above:Performed By: #### [id number] #### [facility] [address] [place] [address]Zpatbxkxp/100 WBC (Bld)9.9 %Normal4.0-14.0[facility] CenterComment on above:Performed By: #### [id number] #### [facility] [address] [place] [address]Bfbupf Absolute6.5 E9/LNormal2.0-7.5FPremier Health [facility] Comment on above:Performed By: #### [id number] #### [facility] [address] [place] [address]Zlkjey Auto80.0 %High36.0-75.0[facility] Comment on above:Performed By: #### [id number] #### [facility] [address] [place] [address]Xrafdqkp965.0 E9/CHzavyg392.0-500.0[facility] Comment on above:Performed By: #### [id number] #### [facility] [address] [place] [address]Rduxjmyl mean volume (Bld) [Entitic vol]9.3 fLNormal6.4-10.8 [facility] CenterComment on above:Performed By: #### [id number] #### [facility] [address], [place] [address]ZBH5.0 E12/LLow4.3-5.9[facility] Medical CenterComment on above:Performed By: #### [id number] #### [facility] [address], [place] [address]ZUF1.1 E9/LNormal4.0-11.0[facility] CenterComment on above:Result Comment: Peripheral smear review performed.Performed By: #### [id number] #### [facility] [address], [place] [address]GXIQDEWERFeatepz By: SYSTEM SYSTEM on 88-88-1823Dtbtnxt [Moles/Vol]1.5 mmol/LNormal0.5 - 2.2 mmol/LRemisol ChemProcalcitonin0.06 ng/mL [...] to 24 hours.CHEMISTRYOrdered By: Summer Mcguire on 86-19-2527Sggtmjagrpo peptide B (Bld) [Mass/Vol]512 pg/mLHigh5 - 80 pg/mLMARY [facility] HemeManSSCHEMISTRYOrdered By: Samir Naidu on 21-74-4440Fguybbymp [Mass/Vol]2.2 mg/dLNormal1.3 - 2.4 mg/dLRemisol ChemTroponin HS18.30 pg/lTWkcjqh06.90 - 38.40 pg/mLRemisol ChemComment on above:Interpretive Data: The 95% CI (Confidence Interval) PPV (Positive Predictive Value) for myocardial infarction in females is 38 pg/mL, in males 51 pg/mL. The results should be used in conjunction with clinical conditions of myocardial infarction. (Access High Sensitivity Troponin I Instructions For Use, Roxane Blanca, June 2018)COAGULATIONOrdered By: Summer Mcguire on 12-53-1285eFGK Coag (PPP) [Time]33.3 eFnzlzy08.1 - 36.5 second(s)[facility] Auto CoagComment on above: Interpretive Data: Parameter [...] the same coagulation reagent and instrumentation as [facility]. Currently there are no coagulation studies available worldwide for children to 14 days, andno normal ranges. Heparin therapeutic range (represented by Anti-Factor Xa activity of 0.2 - 0.4 U/mL) corresponds to PTT of 56.6 - 109.0 sec.INR Coag (PPP) [Relative time]0.98 {INR}Invalid Interpretation CodeMARY HURLEY [facility] Auto CoagComment on above:Interpretive Data: INR results are specifically intended to assess patients stabilized on long-term Anticoagulation therapy suggested INR s Less Intensive Anticoagulation 2.0 3.0 Conventional Range 3.0 4.5PT Coag (PPP) [Time]11.0 sNormal9.4 - 12.5 second(s) [facility] Auto CoagComment on above:Interpretive Data: 15 days [...] the same coagulation reagent and instrumentation as [facility]. Currently there are no coagulation studies available worldwide for children to 14 days, andno normal ranges.CT Chest w/o Contraston 20-08-3974BB Chest w/o ContrastExam Date/Time: 04/14/2025 19:05 EDT [...] Yoel Rodriguez DO Transcribed by: MARII Technologist: CNKNDayton Osteopathic HospitalCT Head or Brain w/o Contraston 29-89-8855OL Head or Brain w/o ContrastExam Date/Time: 04/14/2025 [...] Yoel Rodriguez DO Transcribed by: MARII Technologist: KoNovant Health Presbyterian Medical Centerantoinette [facility] HospitalCTA Headon 12-58-8453ZKC HeadExam Date/Time: 04/14/2025 17:33 EDT Reason for Exam: NEURO DEFICIT, ACUTE, STROKE SUSPECTED;Other (please specify) Report Please see CTA neck report. Ordering Provider: Rivas Griggs FINAL REPORT Dictated: 04/14/2025 5:55 pm Yoel Rodriguez DO Signed (Electronic Signature): 04/14/2025 5:55 pm Signed by: Yoel Rodriguez DO Transcribed by: MARII Technologist: ZiyadUniversity Hospitals Elyria Medical CenterCTA Neckon 75-03-7235NQF NeckExam Date/Time: 04/14/2025 17:33 EDT Reason for [...] obtained from the thoracic inlet through the [place] of [place] after administration of intravenous contrast. [...] Signature): 04/14/2025 5:51 pm Signed by: Yoel Rodrigeuz DO Transcribed by: MARII Technologist: ZiyadUniversity Hospitals Elyria Medical CenterCapillary Glucose POCon 89-56-7059Rghncqm [Mass/Vol]261 mg/qPLdlc99-13BitiivUniversity Hospitals Elyria Medical CenterComment on above:Performed By: #### [id number] #### [facility] [address], [place] [address]KD Clinical Summaryon 84-34-3982CF Clinical SummaryED Clinical Summary [address] [address] ED Clinical Summary Person Information Name: NADIR BETH Vira/[facility] Age: 85 Years : 1940 Sex: Male Language: [place]ese PCP: Van Youssef MD Marital Status: MRN: [id number] Visit Id: Visit Reason: Altered mental status; Headache; Potential stroke; stroke Speciality: Acuity: 2 Enc Type: Inpatient Med Service: Medical Arrival: 04/14/2025 16:53:36 Discharge: LOS: 000 03:59 Checkin: 04/14/2025 16:53:36 Checkout: 04/14/2025 20:52:18 Dispo Type: Admitted as IP to this [facility] EVENTS: Event Name Event Status [...] 19:37:19 Pending Labs Request 04/14/2025 19:50:50 ADDRESS: [address] [place] [phone] PHYS DOC NOTES: Addendum by Oleg Doll DO on April 14, 2025 19:50:02 EDT MEDICAL INFORMATION: Prescriptions Given: Medications to Continue with No Changes Other Medications acetaminophen-hydrocodone ([place] 325 mg-5 mg oral tablet) 1 Tablets [...] (in the morn (more content not included)...NormalFisher [facility] Hospital CenterED Note-Physicianon 85-69-4936UA Note-PhysicianED Note-Physician Basic Information Time Seen: Nimeshsushma SlaughterRivas 04/14/2025 17:02 Chief Complaint pt presents via [facility] d/t ams. family states pt complains [...] and Complexity of Problems Differential Diagnosis: [] [facility] Data External documents reviewed: [] My [...] decision-making, intensive cardiac and/ (more content not included)...[facility] CenterComment on above:Result Comment: Electronically Signed By: Oleg Doll DO.mary\Date and Time Signed: 04/14/25 19:50 EDTED Patient Education Note on 00-10-0982LQ Patient Education NoteED Patient Education NoteNoWVUMedicine [facility] Patient Summaryon 53-72-3926GM Patient SummaryED Patient Summary [place] [id number] Patient Discharge Instructions Person Information Name: NADIR BETH Age: 85 Years Arrival Date: 04/14/2025 16:53:36 Discharge Diagnosis: 1:CVA (cerebrovascular accident); 2:Congestive heart failure; 3:Chronic kidneydisease; 4:Hypertensive urgency; Pericardial effusion; Pleural effusion Primary Care Physician: Van Youssef MD Provider Information Primary Provider: Rivas Griggs M.D. Advanced Windmill Mechanic:None The exam and treatment you received in the Emergency Department were for an urgent problem and are not intended as complete care. It is important that you follow up with a doctor, nurse practitioner,or physician???s assistant floor covering printer for ongoing care. If your symptoms become [...] opioids can be used to help relieve isabgort-lh-ogasjt pain and are often prescribed following a [...] be struggling with addiction, tell your health lawn care worker and askfor guidance or call [facility] (more content not included)... NormalUniversity Hospitals Elyria Medical CenterLactic Acidon 34-11-1926Rofapx Acid Lvl1.5 mmol/LNormal0.5-2.2FPremier Health Miami Valley Hospital SouthComment on above:Performed By: #### [id number] #### [facility] [address], [place] [address]Iuaqjydgpno 15-19-9143Kyyxgbcsk [Mass/Vol]2.2 mg/dLNormal 1.3-2.4FPremier Health Miami Valley Hospital SouthComment on above:Performed By: #### [id number] #### [facility] [address], [place] [address]Ql Panel InformationOrdered By: ANGPROCESSSERVER MICROBIOLOGY on 39-38-8762Lfaau Culture CharcoalNo growth at 4 days. Final to follow at 7 days.[facility] HospitalBlood Culture CharcoalNo growth at 4 days. Final to follow at 7 days.[facility] HospitalPT & PTTon 58-31-8797LHY Coag (PPP) [Relative time]0.98 {INR}Invalid Interpretation [facility] HospitalComment on above:Result Comment: INR results are specifically intended to assess patients stabilized on long-term Anticoagulation therapy suggested INR???s ???Less Intensive Anticoagulation??? 2.0 ??? 3.0 Conventional Range 3.0 ??? 4.5Performed By: #### [id number] #### [facility] [address], [place] [address]CZ04.0 second(s)Normal9.4-12.5FPremier Health Miami Valley Hospital South Comment on above:Result Comment: 15 days - [...] the same coagulation reagent and instrumentation as [facility]. Currently there are no coagulation studies available worldwide for children to 14 days, andno normal ranges.Performed By: #### [id number] #### [facility] [address], [place] [address]IZB88.3 second(s)Bcujal94.1-36.5FPremier Health Miami [facility] Comment on above:Result Comment: Parameter 15 days [...] the same coagulation reagent and instrumentation as [facility]. Currently there are no coagulation studies available worldwide for children to 14 days, andno normal ranges. Heparin therapeutic range (represented by Anti-Factor Xa activity of 0.2 - 0.4 U/mL) corresponds to PTT of 56.6 - 109.0 sec.Performed By: #### [id number] #### [facility] [address] [place], [place] [address]Wly-Rmnmrfb Noteon 91-78-7182Phl-Arrival NotePre-Arrival Note Pre-Arrival Summary Name: , [facility] Current Date: 04/14/2025 16:54:02 EDT Gender: Male Date of : Age: 85 Pre-Arrival Type: EMS ETA: 04/14/2025 17:17:00 EDT Primary Care Physician: Presenting Problem: Pre-Arrival User: Abdoul Mcmillan Referring Source: Location: [place] Completion Date/Time: 04/14/2025 16:47:00 [facility] Emergency Department Pre-Hospital Report Form Vital Signs: Pre-Hospital Report: Treatment in Route: Response to Treatment: Misc. Issues:NormalUniversity Hospitals Elyria Medical CenterProcalcitoninon 04-14-2025 Procalcitonin.06 ng/mLNormal.00-.50[facility] Medical CenterComment on above: Result Comment: <0.5 ng/mL Low [...] within 6 to 24 hours.Performed By: #### [id number] #### [facility] [address], [place] [address]Fknjdibf 0 Hr.on 91-35-5679Odmagxxj HS18.30 pg/mLNormal 15.90-38.40[facility] Medical CenterComment on above:Result Comment: The 95% CI (Confidence Interval) PPV (Positive Predictive Value) for myocardial infa rction in females is 38 pg/mL, in males 51 pg/mL. The results should be used in conjunction with clinical conditions of myocardial infarction. (Access High Sensitivity Troponin I Instructions For Use, Roxane Blanca, June 2018)Performed By: #### [id number] #### [facility] [address], [place] [address]AP with Cult Rflxon 55-47-5148GU Spec DescClean CatchNormal [facility] CenterComment on above:Performed By: #### [id number] #### [facility] [address], [place] [address]BU Chest Single Viewon [id number] Chest Single ViewExam Date/Time: 04/14/2025 17:32 EDT [...] Yoel Rodriguez DO Transcribed by: MARII Technologist: KoUniversity Hospitals Elyria Medical CentereGFRon 96-50-9014yGYM06 mL/min/1.73 m2Low>=59[facility] Medical CenterComment on above:Performed By: #### [id number] #### [facility] [address], [place] [address]Imsgwh Visiton 92-14-1968Kddesa-up [id number] Nadir Beth 1940 M Date Provider Department Center 03/12/2025 CLARIBEL VILLALOBOS MILKA Beckett Family History Problem Relation Age of Onset Coronary artery disease Father Family Status - Relation Status Age at Father Level of Service:18925 IN OFFICE/OUTPATIENT ESTABLISHED [facility] 40 [facility] [id number] Attestation signed by Albaro Faulkner MD at 03/01/2025 6:06 PM I personally saw and examined the patient on the same date of service as resident/fellow Dr chilel. I discussed the findings and therapeutic plan with the resident/fellow Dr chilel. I agree with the documentation, except for any edits/updates below. Teaching Physician's Revisions: None Albaro Faulkner MD, [facility] History Of Present Illness Nadir Beth [...] Father Allergies Iodinated contrast media, Nitroglycerin, and Rssauix-phj-sus reductase inhibitors Medications (Not in a hospital [...] Imaging Results Transesophageal echo (MARK) Addendum: [facility] Heart Station [address] [place] [address] [phone] (fax) Transesophageal Echocardiogram-[facility] Name: NADIR BETH Study Date: 08/31/2023 02:31 PM B/P: 190 mmHg/86 mmHg HR: 92 bpm Date of : 1940 Location: [facility] Height: 71 in. Age: 83 year(s) Patient Room: Weight: 210 lb. Gender: Male Patient Status: OutPt BSA: 2.15 m2 Indication: Aortic Valve Stenosis Examination: MARK/Limited Doppler/CFI Image Quality: Excellent Patient Consent: Informed, written consent was obtained for the procedure Exam Location: A MARK was performed in the Guest Advisor without complications Anesthesia Pharyngeal anesthesia with viscous Lidocaine Conclusions Left Ventricle: Global left ventricular systolic function is hyperdynamic. EF range is estimated at 65 % -70 %. No regional wall motion abnormality. Right Ventricle: The right ventricle appears normal in size. Normal right kari (more content not included)...NormalUnCorey HospitalNURSNOTEon [id number] swallow study completed and passed. RN educated [...] wheeled off of unit with all of belongings.NormalUnCorey HospitalTelephoneon [id number] Nadir Beth 1940 M Date Provider Department Center 02/21/2025 [facility] NE HeartVAS Family History Problem Relation Age of Onset Coronary artery disease Father Family Status - Relation Status Age at FatherNormalUniversity of Finch Medical CenterFollow-Upon 02-25-5594Tyeaiy-Up [id number] Nadir Beth 1940 M Date Provider Department Center 01/03/2025 RUTHIE OWEN [facility] NEPHRO Comprehensiv Family History Problem Relation Age of Onset Coronary artery disease Father Family Status - Relation Status Age at Father Level of Service:95725 IN OFFICE/OUTPATIENT ESTABLISHED MOD MDM 30 MIN () Reason for Visit and Comments: Follow-up [291996][facility] CampusOffice Visiton [id number]-up [id number] Nadir Beth 1940 M Date Provider Department Center 12/14/2024 CLRAIBEL VILLALOBOS MILKA Beckett Family History Problem Relation Age of Onset Coronary artery disease Father Family Status - Relation Status Age at Father Level of Service:30844 IN OFFICE/OUTPATIENT ESTABLISHED MOD MDM 30 [facility] HospitalAmbulatory Visit Summaryon 12-04-2024 Ambulatory Visit SummaryAmbulatory Visit Summary NADIR EBTH :1940 Visit Date:12/04/2024 Ambulatory Visit Instructions Your Diagnosis BPH with urinary obstruction Gross hematuria Incomplete bladder emptying OAB (overactive bladder) Post-void dribbling Acquired buried penis Balanitis Anticoagulated Other obstructive and reflux uropathy Your Care Team Attending Physician - MARQUIS LOUISE MD Primary Care Physician - Van Youssef MD Referring Physician - MARQUIS LOUISE MD This Is Your Medications List acetaminophen-hydrocodone ([place] 325 mg-5 mg oral tablet) ciprofloxacin (Cipro [...] HENDERSON, LU Sweet Where: [place] [address]- You Need to Schedule the Following Appointments Follow Up with ADRIAN GUSTAFSON, ADAN CHO When: In 6 months Comments: Can see DIAMANTE, w/PVR Where: Medications What How Much When Why Instructions Unchanged acetaminophen-hydrocodone ([place] 325 mg-5 mg oral tablet) 1 Tablets [...] questions or concerns Uncha (more content not included)...[facility] CenterUrology Office/Clinic Noteon 56-26-3179Cuvzxuo Office/Clinic NoteUrology Office/Clinic Note Chief Complaint 6-8 [...] initiated. Palomares was removed on 1 01/07/24. Prior IPSS 11(23). Taking Flomax 0.4mg [...] penis. -Cont symptomatic monitoring 8. Anticoagulated (Z79.01: [facility] (current) use of anticoagulants) Taking Eliquis, has restarted since UroLift. Hx of cardioversion. Increased risk for bleeding. Elevated r (more content not included)...NormalUniversity Hospitals Elyria Medical CenterComment on above:Result Comment: Electronically Signed By: MARQUIS LOUISE MD\.br\Date and Time Signed: 12/04/24 09:21 EST\.br\Electronically Co-Signed By: Deepthi Kevin\.br\Date and Time Co- Signed: 12/04/24 09:11 ESTAmbulatory Visit Summaryon 54-23-9283Husccxomaa Visit SummaryAmbulatory Visit Summary NADIR BETH Joy :1940 Visit Date:11/06/2024 Ambulatory Visit Instructions Your Care Team Attending Physician - Mejia SINGH MD Primary Care Physician - Van Youssef MD This Is Your Medications List NIFEdipine acetaminophen-hydrocodone ([place] 325 mg-5 mg oral tablet) acyclovir apixaban [...] MARQUIS LOUISE MD Where: [facility] [address], [address] [place] [address]- Medications What How Much When Why Instructions Unchanged acetaminophen-hydrocodone ([place] 325 mg-5 mg oral tablet) 1 Tablets [...] receive a survey v (more content not included)...[facility] CenterAmbulatory Visit Summaryon 63-08-6868Uskgytnadu Visit Summary Ambulatory Visit Summary NADIR BETH :1940 Visit Date:11/02/2024 Ambulatory Visit Instructions Your Diagnosis BPH with urinary obstruction Gross hematuria Incomplete bladder emptying OAB (overactive bladder) Acquired buried penis Balanitis Anticoagulated Your Care Team Attending Physician - NKMARQUIS QUINTANA MD Primary Care Physician - Van Youssef MD This Is Your Medications List acetaminophen-hydrocodone ([place] 325 mg-5 mg oral tablet) ciprofloxacin (Cipro [...] AM EST With: Where: [facility] [address] [place] [address] [place] [address]- Wednesday 8:40 AM EST With: MARQUIS LOUISE MD Where: [facility] [address], [address] [place] [address]- You Need to Schedule the Following Appointments Follow Up with MARQUIS LOUISE MD, URL When: Where: Medications What How Much When Why Instructions Unchanged acetaminophen-hydrocodone ([place] 325 mg-5 mg oral tablet) 1 Tablets [...] if questions or co (more content not included)...[facility] CenterUrology Office/Clinic Noteon 66-66-5074Cbzncit Office/Clinic Note Urology Office/Clinic Note Chief Complaint [...] with voice recognition artificial intelligence software, specifically [employer], [employer] and or [employer]. Substitutions may have occurred due to the [...] penis. -Cont symptomatic monitoring 7. Anticoagulated (Z79.01: [facility] (current) use of anticoagulants) Taking Eliquis, has restarted since UroLift. Hx of cardioversion. Increased risk for bleeding. Elevated risk for periop complications. Patient underwent a UroLift procedure approximately a week and a half ago. Unfortunately, he developed gross hematuria with clot retention that required hand irrigation with a three-way Palomares catheter. He presents today for an (more content not included)...[facility] Medical CenterComment on above:Result Comment: Electronically Signed By: MARQUIS LOUISE MD\.br\Date and Time Signed: 11/02/24 08:40 EST\.br\Electronically Co-Signed By: Roxy Gatica\.br\Date and Time Co-Signed: 11/02/24 08:27 EST\.br\Electronically Co-Signed By: Roxy Gatica\.br\Date and Time Co-Signed:11/02/24 08:29 EST Ambulatory Visit Summaryon 90-10-5495Aorlklnxil Visit SummaryAmbulatory Visit Summary NADIR BETH :1940 Visit Date:10/25/2024 Ambulatory Visit Instructions Your Care Team Attending Physician - MARQUIS LOUISE MD Primary Care Physician - Van Youssef MD Referring Physician - MARQUIS LOUISE MD This Is Your Medications List NIFEdipine acetaminophen-hydrocodone ([place] 325 mg-5 mg oral tablet) acyclovir apixaban [...] MARQUIS LOUISE MD Where: [facility] [address], [address] [place] [address]- Medications What How Much When Why Instructions Unchanged acetaminophen-hydrocodone ([place] 325 mg-5 mg oral tablet) 1 Tablets [...] Incomplete bladder emptying Naus (more content not included)...[facility] CenterInpatient Patient Summaryon 04-29-0859Ahmkrubvm Patient SummaryInpatient Patient Summary [address] [address] Clinical Summary Person Information Name: NADIR BETH Age: 84 Years : 1940 Sex: Male PCP: Van Youssef MD Marital Status: Race: White Ethnicity: Non- or Language: South Sudanese Visit Id: Visit Reason: BPH WITH URINARY OBSTRUCTION, INCOMPLETE BLADDER EMPTYING Speciality: Acuity: Enc Type: Outpatient Med Service: Surgery Arrival: 10/23/2024 13:48:15 Discharge: Dispo Type: Address: [address] [place] [address] [phone] Provider Notes: Diagnosis: Problems Active BPH with [...] Documented This Visit Final Med List: acetaminophen-hydrocodone ([place] 325 mg-5 mg oral tablet) 1 Tablets [...] Follow up: Patient Education Information: Benign Prostatic HyperplasiaDiley Ridge Medical CenterMain OR Intraoperative Recordon 63-90-7813Whdp OR Intraoperative RecordMain OR Intraoperative Record IntraOp Document Type FTURO Summary Primary Physician: MARQUIS LOUISE MD Finalized Date/Time: 10/23/24 15:03:19 Pt. Name: ZOEYMiroslavaNADIR DUVALL D.O.B./Sex: 1940 Male Med Rec #: [id number] Physician: MARQUIS LOUISE MD Financial #: [id number] Pt. Type: O Room/Bed: / Admit/Disch: 10/23/24 [...] 3 Case Attendee ADRIAN GUSTAFSON, Oliva Goel ORCHARD PRUNER, Ana CHO Role Performed Surgeon - Primary Radar Systems Engineer - Primary Scrub - Primary Time In [...] Implant Implant Identification Description UROLIFT Lot Number [id number] [employer] UROLIFT Catalog ???# UL2-C Expiration Date 11/30/25 [...] 10/23/24 15:03 Oliva Goel (more content not included)...[facility] Medical CenterMain OR Preoperative Recordon 43-33-0026Kfha OR Preoperative RecordMain OR Preoperative Record Holding Area Document Type FTURO Summary Primary Physician: MARQUIS LOUISE MD Finalized Date/Time: 10/23/24 14:17:30 Pt. Name: NADIR BETH /Sex: 1940 Male Med Rec #: [id number] Physician: MARQUIS LOUISE MD Financial #: [id number] Pt. Type: O Room/Bed: / Admit/Disch: 10/23/24 [...] Complaints of Pain: No Skin Integrity Intact, Brielle, Warm, & Dry Vitals - EU Blood Pressure 152/78 Pulse 84 bpm Respirations 18 br/min SPO2 90 % Additional None RN Reviewed Yes Specimens Collected Last Modified By: Oliva Goel 10/23/24 14:17:29 Finalized By: Oliva Goel Document Signatures Signed By: Preeti Kaur LPN 10/23/24 14:05 Oliva Goel 10/23/24 14:17NoGalion HospitalOperative Reporton [id number] ReportOperative Report Patient: NADIR BETH Age: 84 [...] urethral meatus. We then placed the 20 Niuean cystoscope into the bladder. Bilobar hyperplasia was [...] able to easily navigate with a 20 Niuean scope. Scope was then removed and an 18 Niuean Palomares catheter was placed with return of light pink urine and no clots noted. This concluded the procedure. Patient was then transferred to PACU in stable condition. PLAN: Patient will follow-up in 2 days for Palomares catheter removal. 10 cc in the balloon Follow-up in 6 to 8 weeks with IPSS at that timeDiley Ridge Medical CenterComment on above:Result Comment: Electronically Signed By: MARQUIS LOUISE MD\.br\Date and Time Signed: 10/23/24 15:06 ESTOutpatient Surgery Discharge Instructionon 95-03-0363Ppsjuxwehy Surgery Discharge Instruction Outpatient Surgery Discharge Instruction [address] [address] Patient Discharge Instructions PERSON INFORMATION Name: NADIR BETH Date of : 1940 Current Date: 10/23/2024 14:58:03 PHYSICIANS Admitting Physician: MARQUIS LOUISE MD Comment: Discharge Diagnosis: KIRIT NADIR Hamilton has been given the [...] a small amount of (more content not included)...[facility] CenterAmbulatory Visit Summaryon 79-54-3685Hhektiwnur Visit SummaryAmbulatory Visit Summary NADIR BETH:1940 Visit Date:10/02/2024 Ambulatory Visit Instructions Your Diagnosis [...] stools Patient Survey Yo (more content not included)...[facility] CenterAmbulatory Visit SummaryAmbulatory Visit Summary NADIR [...] choosing us for (more content not included)... [facility] CenterUrology Office/Clinic Noteon 37-97-2229Lowhbvn Office/Clinic NoteUrology Office/Clinic Note Chief Complaint 1-2 [...] with voice recognition artificial intelligence software, specifically [employer], [employer] and or [employer]. Substitutions may have occurred due to the [...] -Cipro 500mg bid start the day prior, [place] 325-5mg #2 q6hrs as needed for pain, [...] and Lasix. -Dm control 6. Anticoagulated (Z79.01: [facility] (current) use of anticoagulants) Taking Eliquis. Hx of cardioversion. Elevated risk for periop complications. Based on patient's age, multiple medical comorbidities and his prostate size we discussed extensively that he will benefit most likely from a UroLift procedure. He is amenable to (more content not included)...[facility] Medical CenterComment on above:Result Comment: Electronically Signed By: ADRIAN GUSTAFSON, MARQUIS\.br\Date and Time Signed: 10/02/24 11:43 EST\.br\Electronically Co- Signed By: Roxy Gatica\.br\Date and Time Co-Signed: 10/02/24 11:21 EST\.br\Electronically Co-Signed By: Roxy Gatica\.br\Date and Time Co-Signed:10/02/24 11:22 EST\.br\Electronically Co-Signed By: Roxy Gatica\.br\Date and Time Co-Signed: 10/02/24 11:23 ESTInpatient Patient Summaryon 88-23-4192Uifstkhtm Patient SummaryInpatient Patient Summary [place] [address] Clinical Summary Person Information Name: NADIR BETH Age: 84 Years : 1940 Sex: Male PCP: Van Youssef MD Marital Status: Race: White Ethnicity: Non- or Language: [place] Sudanese Visit Id: Visit Reason: ENLARGED PROSTATE WITH URINARY OBSTRUCTION, INCOMPLETE BLADDER EMPTYING Speciality: Acuity: Enc Type: Outpatient Med Service: Surgery Arrival: 09/25/2024 11:42:27 Discharge: Dispo Type: Address: [address] [place] [address] [phone] Provider Notes: Diagnosis: Problems Active BPH with [...] Follow up: With: Address: When: MARQUIS ADRIAN [address] [address] [phone] Business (1) Comments: Follow-up in the office in 2 weeks to discuss next plan With: Address: When: MARQUIS ADRIAN [address] [address] [phone] Business (1) Patient Education Information: Benign Prostatic HyperplasiaDiley Ridge Medical CenterMain OR Intraoperative Recordon 95-78-8425Srqy OR Intraoperative RecordMain OR Intraoperative Record IntraOp Document Type FTURO Summary Primary Physician: MARQUIS LOUISE MD Finalized Date/Time: 09/25/24 13:23:58 Pt. Name: NADIR BETH/Sex: 1940 Male Med Rec #: [id number] Physician: MARQUIS LOUISE MD Financial #: [id number] Pt. Type: O Room/Bed: / Admit/Disch: 09/25/24 [...] C KWABENA Role Performed Surgeon - Primary Radar Systems Engineer - Primary Scrub - Primary Time In [...] Goel 09/25/24 13:23 Oliva Goel 09/25/24 13:23Normal [facility] CenterMain OR Preoperative Recordon 74-64-7057Wkas OR Preoperative RecordMain OR Preoperative Record Holding Area Document Type FTURO Summary Primary Physician: MARQUIS LOUISE MD Finalized Date/Time: 09/25/24 13:04:51 Pt. Name: NADIR BETH/Sex: 1940 Male Med Rec #: [id number] Physician: MARQUIS LOUISE MD Financial #: [id number] Pt. Type: O Room/Bed: / Admit/Disch: 09/25/24 [...] Complaints of Pain: No Skin Integrity Intact, Brielle, Warm, & Dry Vitals - EU Blood Pressure Pulse Respirations SPO2 Additional None RN Reviewed Yes Specimens Collected Last Modified By: Oliva Goel 09/25/24 13:04:50 Finalized By: Oliva Goel Document Signatures Signed By: Preeti Kaur LPN 09/25/24 12:49 Oliva Goel 09/25/24 13:04NoGalion HospitalOperative Reporton [id number] ReportOperative Report Patient: NADIR BETH Age: 84 [...] discuss next steps Impression and Plan Counseled: Family.[facility] Medical CenterComment on above:Result Comment: Electronically Signed By: MARQUIS LOUISE MD\.br\Date and Time Signed: 09/25/24 13:27 ESTOutpatient Surgery Discharge Instructionon 09-25-2024 Outpatient Surgery Discharge InstructionOutpatient Surgery Discharge Instruction [place] [address] Patient Discharge Instructions PERSON INFORMATION Name: NADIR [...] Follow up: With: Address: When: MARQUIS LOUISE [address] [place] [address] [phone] Business (1) Comments: Follow-up in the office in 2 weeks to discuss next plan With: Address: When: MARQUIS LOUISE [address] [place] [address] [phone] Business (1) Comment: PATIENT EDUCATION INFORMATION Instructions: [...] procedure uses radio frequen (more content not included)...[facility] Medical CenterNo Panel Informationon 32-50-9299REZG HealthcareAmbulatory Visit Summaryon 95-88-1949Upxzymhbpp Visit SummaryAmbulatory Visit Summary NADIR BETH :1940 [...] psyllium (Metamucil 525 mg (more content not included)...[facility] Medical CenterUrology Office/Clinic Noteon 84-72-8912Qdajjft Office/Clinic NoteUrology Office/Clinic Note Chief Complaint follow [...] bladder and urinary channel, (more content not included)...[facility] Medical CenterComment on above:Result Comment: Electronically Signed By: MARQUIS LOUISE MD\.br\Date and Time Signed: 08/08/24 11:05 EDT\.br\Electronically Co-Signed By: Roxy Gatica\.br\Date and Time Co- Signed: 08/08/24 10:46 EDT\.br\Electronically Co-Signed By: Roxy Gatica\.br\Date and Time Co-Signed:08/08/24 10:53 EDTMICRO OTHER TESTSOrdered By: Francisco Bolanos on 07-85-3803Qikyh WBC LactoferrinNegative (04/15/23 7:00 AM)NormalNegativeFTMC Man SeroCHEMISTRYOrdered By: SYSTEM SYSTEM on 67-14-4098Sqknnks [Mass/Vol]3.8 g/dLNormal3.3 - 5.0 gm/dLFTMC Remisol Albumin/Globulin [Mass ratio]1.4 {ratio}Normal1.1 - 2.2FTMC RemisolALP [Catalytic activity/Vol]61 [iU]/yDljtkw68 - 98 Int._Unit/LFTMC RemisolALT No additional P-5'-P [Catalytic activity/Vol]16 [iU]/dNormal6 - 46 Int._Unit/LFTMC RemisolAnion gap [Moles/Vol]13 mmol/LNormal6 - 16 mEq/LFTMC RemisolAST [Catalytic activity/Vol]18 [iU]/dNormal5 - 43 Int._Unit/LFTMC RemisolBilirubin [Mass/Vol]0.5 mg/dLNormal0.0 - 1.1 mg/dLFTMC RemisolCalcium [Mass/Vol]8.8 mg/dL Low8.9 - 11.1 mg/dLFTMC RemisolChloride [Moles/Vol]104 mmol/YDfsnwz089 - 111 mmol/LFTMC RemisolCO2 [Moles/Vol]28 mmol/XLfqcdt85 - 31 mmol/LFTMC Remisol Creatinine [Mass/Vol]1.8 mg/dLHigh0.5 - 1.3 mg/dLFTMC RemisolGFR/1.73 sq M.predicted among non-blacks MDRD (S/P/Bld) [Vol rate/Area]37 mL/min/1.73 m2Low >=59mL/min/1.73 m2FT Chem SGlobulin (S) [Mass/Vol]2.8 g/dLNormal1.4 - 4.0 gm/dLFTMC RemisolGlucose [Mass/Vol]111 mg/kJPotoie06 - 199 mg/dLFTMC Remisol Potassium [Moles/Vol]4.1 mmol/LNormal3.5 - 5.3 mmol/LFTMC RemisolProtein [Mass/Vol]6.6 g/dLNormal6.0 - 7.8 gm/dLFTMC RemisolSodium [Moles/Vol]141 mmol/L Hjamyw609 - 145 mmol/LFTMC RemisolUrea nitrogen [Mass/Vol]24 mg/dLHigh5 - 21 mg/dLFTMC RemisolUrea nitrogen/Creatinine [Mass ratio]13 mg/cdVwflfn00 - 20FTMC RemisolHEMATOLOGYOrdered By: SYSTEM SYSTEM on 02-78-2141Hvzvsvrgd/100 WBC (Bld) 0.9 %Normal0.0 - 2.0 %FTMC [...] - 1.0 E9/LFTMC HemeAutoSSNeutrophils/100 WBC (Bld) 68.5 %Ldszhq35.0 - 75.0 %FTMC HemeAutoSSNeutrophils/Leukocytes Auto (Bld) [Pure # fraction]4.6 E9/LNormal2.0 - 7.5 E9/LFTMC HemeAutoSSHEMATOLOGYOrdered By: Gauri Scott on 63-20-8291Hekevruprxw distribution width (RBC) [Ratio]14.7 % High10.9 - 14.2 %FTMC HemeAutoSSHematocrit (Bld) [Volume fraction]40.3 %Normal 37.7 - 49.0 %FTMC HemeAutoSSHemoglobin (Bld) [Mass/Vol]13.7 g/iKYkgmot33.5 - 17.5 gm/dLFTMC HemeAutoSSMCH (RBC) [Entitic mass]33.9 whJozwmc25.0 - 34.0 pgFTMC HemeAutoSSMCHC (RBC) [Mass/Vol]34.0 g/mYSjziiy06.4 - 36.0 gm/dLFTMC HemeAutoSS MCV (RBC) [Entitic vol]99.8 lSJsnjkt40.0 - 100.0 fLFTMC HemeAutoSSPlatelet mean volume (Bld) [Entitic vol]9.8 fLNormal6.4 - 10.8 fLFTMC HemeAutoSSPlatelets (Bld) [#/Vol]161.0 E9/EMsswfi511.0 - 500.0 E9/LFTMC HemeAutoSSRBC (Bld) [#/Vol] 4.0 E12/LLow4.3 - 5.9 E12/LFTMC HemeAutoSSWBC corrected for nucl RBC Auto (Bld) [#/Vol]6.7 E9/LNormal4.0 - 11.0 E9/LFTMC HemeAutoSSALBUMINon 01-28-1280Gfpabft [Mass/Vol]3.3 g/dLCritically low3.4-5.0The [facility] HospitalComment on above: Performed By: #### MG BMP, PHOS #### [facility] [address] [place] [address] [address] David MaganaGLYCOHEMOGLOBIN A1Con 64-52-1469CFA RECOMMENDATIONSEE BELOWNormal The [facility] HospitalComment on above:Result Comment: ADA RECOMMENDED LIMIT 4.0 - 6.0 ADA THERAPEUTIC TARGET < 7.0 ACTION SUGGESTED > 7.0Performed By: #### A1C #### [facility] [address] [place] [address] [address] David MaganaGlucose [Mass/Vol]108 mg/dLNormalThe [facility] HospitalComment on above:Performed By: #### A1C #### [facility] [address] [place] [address] [address] David MaganaHbA1c (Bld) [Mass fraction]5.4 %Normal4.5-6.2The [facility] HospitalComment on above:Performed By: #### A1C #### [facility] [address] [address] [address] David MaganaPHOSPHORUSon [id number] [Mass/Vol]3.6 mg/dLNormal2.6-4.7 The [facility] HospitalComment on above:Performed By: #### MG BMP, PHOS #### [facility] [address] [address] [address] David MaganaPROF CHEM 8 (BAS METB)on [id number] gap [Moles/Vol]11.6 mmol/LNormalThe [facility] HospitalComment on above:Performed By: #### MG, BMP, PHOS #### [facility] [address] [place] [address] Dr. David MaganaCalcium [Mass/Vol]8.9 mg/dLNormal8.5-10.1The [facility] Comment on above:Performed By: #### MG, BMP, PHOS #### [facility] [address] [address] [address] David MaganaChloride [Moles/Vol]107 mmol/GFyrapt45-731Wot [facility] Comment on above:Performed By: #### MG, BMP, PHOS #### [facility] [address] [place] [address] Dr. David MaganaCO2 [Moles/Vol]30.8 mmol/EPjshhk00.0-32.0The [facility] Comment on above:Performed By: #### MG, BMP, PHOS #### [facility] [address] [place] [address] Dr. David MaganaCreatinine [Mass/Vol]1.67 mg/dLCritically high0.70-1.30The [facility] HospitalComment on above:Performed By: #### MG, BMP, PHOS #### [facility] [address] [place] [address] Dr. David EvansGFR-AF MTMFBNAJ22 mL/min/1.82t8Diyfbggszg low>=60The [facility] HospitalComment on above:Performed By: #### MG, BMP, PHOS #### [facility] [address] [place] [address] Dr. David EvansGFR-NON AF LTSBXCRW48 mL/min/1.13w4Bnldskurul low>=60The [facility] HospitalComment on above:Performed By: #### MG, BMP, PHOS #### [facility] [address] [place] [address] Dr. David MaganaGlucose [Mass/Vol]128 mg/dLCritically atua54-892Hnx [facility] HospitalComment on above:Performed By: #### MG, BMP, PHOS #### [facility] [address] [place] [address] Dr. David MaganaPotassium [Moles/Vol]4.4 mmol/LNormal3.5-5.1[facility] Comment on above:Performed By: #### MG, BMP, PHOS #### [facility] [address] [place] [address] Dr. David Ritchieum [Moles/Vol]145 mmol/LPwzolc403-076DjgCleveland Clinic Lutheran Hospital Comment on above:Performed By: #### MGERICK, PHOS #### [facility] [address] [place] [address] Dr. David Gomez nitrogen [Mass/Vol]25.0 mg/dLCritically high7.0-18.0The [facility] HospitalComment on above:Performed By: #### MG BMP, PHOS #### [facility] [address] [place] [address] Dr. David Gomez nitrogen/Creatinine [Mass ratio]15.0 mg/mgThe Surgical Hospital at SouthwoodsComment on above:Performed By: #### ERICK ESPINOSA PHOS #### [facility] [address] [place] [address] Dr. David MaganaVITAMIN D 25 OHon [id number] D 25-OH11.6 ng/mLNormalThe [facility] HospitalComment on above:Performed By: #### CBC #### [facility] [address] [place] [address] Dr. David iGl [place] BELOWThe Surgical Hospital at SouthwoodsComment on above: Result Comment: <20 ng/mL Vit D deficient 20 - <30 ng/mL Vit D insufficient 30 - 100 ng/mL Vit D sufficient >100 ng/mL Potential ToxicityPerformed By: #### CBC #### [facility] [address] [place] [address] Dr. David Frazier AUTO DIFFon [id number] #0.0 103/ulNormal0.0-0.1The [facility] HospitalComment on above:Performed By: #### MG BMP, PHOS #### [facility] [address] [place] [address] Dr. David MaganaBasophils/100 WBC (Bld)0.5 %Normal0.2-2.0[facility] Comment on above:Performed By: #### MG BMP, PHOS #### [facility] [address] [place] [address] Dr. David Colorado #0.7 103/ulNormal0.0-0.7The [facility] HospitalComment on above: Performed By: #### MG, BMP, PHOS #### [facility] [address] [place] [address] Dr. David Evansosinophils/100 WBC (Bld)9.3 %Critically high0.9-7.0The [facility] HospitalComment on above:Performed By: #### MG, BMP, PHOS #### [facility] [address] [place] [address] Dr. David Evansrythrocyte distribution width (RBC) [Ratio]14.6 %Jabkxc52.0-15.0 The [facility] HospitalComment on above:Performed By: #### MG, BMP, PHOS #### [facility] [address] [place] [address] Dr. David MaganaHematocrit (Bld) [Volume fraction]41.5 %Critically low42.0-54.0 The [facility] HospitalComment on above:Performed By: #### MG, BMP, PHOS #### [facility] [address] [place] [address] Dr. David MaganaHemoglobin (Bld) [Mass/Vol]13.9 g/dLCritically low14.0-18.0The [facility] on above:Performed By: #### MG, BMP, PHOS #### [facility] [address] [place] [address] Dr. David Gerardo #0.02 10e3/ulNormal0.00-0.03The [facility] HospitalComment on above:Performed By: #### MG, BMP, PHOS #### [facility] [address] [place] [address] Dr. David Gerardo %0.3 %Normal0.0-0.5The [facility] HospitalComment on above: Performed By: #### MG, BMP, PHOS #### [facility] [address] [place] [address] Dr. David Patiño #1.0 103/ulCritically low1.2-3.8The [facility] Comment on above:Performed By: #### MG, BMP, PHOS #### [facility] [address] [place] [address] Dr. David Ramosmphocytes/100 WBC (Bld)13.0 %Critically low20.5-60.0The [facility] HospitalComment on above:Performed By: #### MG, BMP, PHOS #### [facility] [address] [place] [address] Dr. David DennisonUAL DIFF REQNONormalThe [facility] HospitalComment on above: Performed By: #### MG, BMP, PHOS #### [facility] [address] [place] [address] Dr. David Faulkner (RBC) [Entitic mass]33.5 qjJzdnhu86.9-34.0The [facility] HospitalComment on above:Performed By: #### MG, BMP, PHOS #### [facility] [address] [place] [address] Dr. David Faulkner (RBC) [Mass/Vol]33.5 g/vEIjfmkp92.9-35.2The [facility] HospitalComment on above:Performed By: #### MG, BMP, PHOS #### [facility] [address] [place] [address] Dr. David Faulkner (RBC) [Entitic vol]100.0 fLCritically high80.0-94.0The [facility] HospitalComment on above:Performed By: #### MG, BMP, PHOS #### [facility] [address] [place] [address] Dr. David Santos #0.8 103/ulNormal0.3-0.8The [facility] HospitalComment on above:Performed By: #### MG, BMP, PHOS #### [facility] [address] [place] [address] Dr. David Dickensocytes/100 WBC (Bld)10.1 %Normal1.7-12.0[facility] Comment on above:Performed By: #### MG, BMP, PHOS #### [facility] [address] [place] [address] Dr. David Hartley #5.0 103/ulNormal1.4-6.5The [facility] HospitalComment on above:Performed By: #### MG, BMP, PHOS #### [facility] [address] [place] [address] Dr. David Sargentutrophils/100 WBC (Bld)66.8 %Nldmjw65.0-75.0The [facility] HospitalComment on above:Performed By: #### MG, BMP, PHOS #### [facility] [address] [place] [address] Dr. David Vigil mean volume (Bld) [Entitic vol]11.2 fLNormal9.5-13.5The [facility] HospitalComment on above:Performed By: #### MG, BMP, PHOS #### [facility] [address] [place] [address] Dr. David MaganaPLT187 103/mhLncxnm598-194Ajg [facility] HospitalComment on above: Performed By: #### MG, BMP, PHOS #### [facility] [address] [place] [address] Dr. David MaganaRBC4.15 106/ulCritically low4.70-6.10The [facility] HospitalComment on above:Performed By: #### MG, BMP, PHOS #### [facility] [address] [place] [address] Dr. David MaganaWBC7.5 103/ulNormal4.0-11.0The [facility] HospitalComment on above: Performed By: #### MG, BMP, PHOS #### [facility] [address] [place] [address] Dr. David Blair 14(COMP METB)on 17-40-0411Lojskns [Mass/Vol]3.5 g/dLNormal 3.4-5.0The [facility] HospitalComment on above:Performed By: #### A1C #### [facility] [address] [place] [address] Dr. David MaganaAlbumin/Globulin [Mass ratio]1.1 {ratio}NormalThe [facility] HospitalComment on above:Performed By: #### A1C #### [facility] [address] [place] [address] Dr. David HartP [Catalytic activity/Vol]76 U/PKiotfv56-319Fkc [facility] HospitalComment on above:Performed By: #### A1C #### [facility] [address] [place] [address] Dr. David HartT [Catalytic activity/Vol]23 U/OEnzjtf06-86Ysg [facility] HospitalComment on above:Performed By: #### A1C #### [facility] [address] [place] [address] Dr. David Bacaon gap [Moles/Vol]13.1 mmol/LNormalThe [facility] Comment on above:Performed By: #### A1C #### [facility] [address] [place] [address] Dr. David MaganaAST [Catalytic activity/Vol]17 U/LEtodll07-64Moc [facility] HospitalComment on above:Performed By: #### A1C #### [facility] [address] [place] [address] Dr. David MaganaBilirubin [Mass/Vol]0.7 mg/dLNormal0.2-1.0The [facility] Comment on above:Performed By: #### A1C #### [facility] [address] [place] [address] Dr. David MaganaCalcium [Mass/Vol]9.0 mg/dLNormal8.5-10.1The [facility] Comment on above:Performed By: #### A1C #### [facility] [address] [place] [address] Dr. David MaganaChloride [Moles/Vol]105 mmol/YJkbvij36-800Hvy [facility] Comment on above:Performed By: #### A1C #### [facility] [address] [place] [address] Dr. David MaganaCO2 [Moles/Vol]29.0 mmol/AWdrtcr59.0-32.0The [facility] Comment on above:Performed By: #### A1C #### [facility] [address] [address] [address] David MaganaCreatinine [Mass/Vol]1.77 mg/dLCritically high0.70-1.30The [facility] HospitalComment on above:Performed By: #### A1C #### [facility] [address] [address] [address] David EvansGFR-AF CESDCOXW55 mL/min/1.97k0Gkhaqiuukh low>=60The [facility] HospitalComment on above:Performed By: #### A1C #### [facility] [address] [place] [address] Dr. David EvansGFR-NON AF LAXBACTB92 mL/min/1.02d2Vjgkelgerh low>=60The [facility] HospitalComment on above:Performed By: #### A1C #### [facility] [address] [place] [address] Dr. David MaganaGlobulin (S) [Mass/Vol]3.3 g/dLNormalThe [facility] HospitalComment on above:Performed By: #### A1C #### [facility] [address] [place] [address] Dr. David MaganaGlucose [Mass/Vol]135 mg/dLCritically pmls66-288Ice [facility] HospitalComment on above:Performed By: #### A1C #### [facility] [address] [address] [address] David MaganaPotassium [Moles/Vol]4.1 mmol/LNormal3.5-5.1The [facility] Comment on above:Performed By: #### A1C #### [facility] [address] [address] [address] David MaganaProtein [Mass/Vol]6.8 g/dLNormal6.4-8.2The [facility] Comment on above:Performed By: #### A1C #### [facility] [address] [place] [address] Dr. David Ritchieum [Moles/Vol]143 mmol/CVgimcg191-696ClyC[facility] Clinic [facility] Comment on above:Performed By: #### A1C #### [facility] [address] [place] [address] Dr. David Gomez nitrogen [Mass/Vol]31.0 mg/dLCritically high7.0-18.0[facility] HospitalComment on above:Performed By: #### A1C #### [facility] [address] [place] [address] Dr. David Gomez nitrogen/Creatinine [Mass ratio]17.5 mg/mgNoUniversity Hospitals Geauga Medical CenterComment on above:Performed By: #### A1C #### [facility] [address] [place] [address] Dr. David ParadaIMEedith [id number] Coag (PPP) [Relative time]0.99 {INR} NormalThe [facility] HospitalComment on above:Performed By: #### A1C #### [facility] [address] [place] [address] Dr. David Rogers GUIDELINESSEE BELOWThe Surgical Hospital at SouthwoodsComment on above:Result Comment: DESIRED INR: 2.0 - 3.0 CONDITIONS NOT LISTED BELOW 2.5 - 3.5 FOR PROSTHETIC HEART VALVE REPLACEMENT 2.5 - 3.5 RECURRENT THROMBOSIS Performed By: #### A1C #### [facility] [address] [place] [address] Dr. David Rivero Coag (PPP) [Time]10.5 sNormal9.0-11.6The [facility] Comment on above:Performed By: #### A1C #### [facility] [address] [place] [address] Dr. David Ayala [id number] Coag (Bld) [Time]33.0 oHjqvgu59.3-36.2[facility] HospitalComment on above:Performed By: #### POCGLUC #### [facility] [address] [place] [address] Dr. David Rodriguez 43-84-3793Sokvsqt [Mass/Vol]3.6 g/dLNormal3.4-5.0The [facility] HospitalComment on above:Performed By: #### CBC #### [facility] [address] [place] [address] Dr. David MaganaGLYCOHEMOGLOBIN A1Con [id number] RECOMMENDATIONSEE BELOWNormal The [facility] HospitalComment on above:Result Comment: ADA RECOMMENDED LIMIT 4.0 - 6.0 ADA THERAPEUTIC TARGET < 7.0 ACTION SUGGESTED > 7.0Performed By: #### POCGLUC #### [facility] [address] [place] [address] Dr. David MaganaGlucose [Mass/Vol]140 mg/dLNormalThe [facility] HospitalComment on above:Performed By: #### POCGLUC #### [facility] [address] [place] [address] Dr. David MaganaHbA1c (Bld) [Mass fraction]6.5 %Critically high4.5-6.2The [facility] HospitalComment on above:Performed By: #### POCGLUC #### [facility] [address] [place] [address] Dr. David MaganaMAGNESIUMon [id number] [Mass/Vol]2.3 mg/dLNormal1.8-2.4 The [facility] HospitalComment on above:Performed By: #### POCGLUC #### [facility] [address] [place] [address] Dr. David MaganaPROF CHEM 8 (BAS METB)on 30-96-6790Oqdbw gap [Moles/Vol]13.2 mmol/LNormalThe [facility] HospitalComment on above:Performed By: #### POCGLUC #### [facility] [address] [place] [address] Dr. David MaganaCalcium [Mass/Vol]9.0 mg/dLNormal8.5-10.1The [facility] Comment on above:Performed By: #### POCGLUC #### [facility] [address] [place] [address] Dr. David MaganaChloride [Moles/Vol]105 mmol/MSorsua29-101Qoa [facility] Comment on above:Performed By: #### POCGLUC #### [facility] [address] [address] [address] David MaganaCO2 [Moles/Vol]28.9 mmol/DVsdkpv74.0-32.0The [facility] Comment on above:Performed By: #### POCGLUC #### [facility] [address] [place] [address] Dr. David MaganaCreatinine [Mass/Vol]1.66 mg/dLCritically high0.70-1.30The [facility] HospitalComment on above:Performed By: #### POCGLUC #### [facility] [address] [place] [address] Dr. David EvansGFR-AF CTOXIMCB04 mL/min/1.03e1Trtgonldlz low>=60The [facility] HospitalComment on above:Performed By: #### POCGLUC #### [facility] [address] [place] [address] Dr. David EvansGFR-NON AF CWKMIUHE18 mL/min/1.40t9Stpzpyvlnf low>=60The [facility] HospitalComment on above:Performed By: #### POCGLUC #### [facility] [address] [place] [address] Dr. David MaganaGlucose [Mass/Vol]123 mg/dLCritically zkvg64-589Hza [facility] HospitalComment on above:Performed By: #### POCGLUC #### [facility] [address] [place] [address] Dr. David MaganaPotassium [Moles/Vol]4.1 mmol/LNormal3.5-5.1The [facility] Comment on above:Performed By: #### POCGLUC #### [facility] [address] [place] [address] Dr. David MaganaSodium [Moles/Vol]143 mmol/DSuvagy659-226JahCleveland Clinic Lutheran Hospital Comment on above:Performed By: #### POCGLUC #### [facility] [address] [place] [address] Dr. David Gomez nitrogen [Mass/Vol]29.0 mg/dLCritically high7.0-18.0The [facility] HospitalComment on above:Performed By: #### POCGLUC #### [facility] [address] [address] [address] David Gomez nitrogen/Creatinine [Mass ratio]17.5 mg/mgNormalThe [facility] HospitalComment on above:Performed By: #### POCGLUC #### [facility] [address] [address] [address] David Wan T PROTEIN CREAT RATIOon [id number] TOTAL PROTEIN<6.0 Normal<=12.0The [facility] HospitalComment on above:Performed By: #### MG, BMP, PHOS #### [facility] [address] [place] [address] Dr. David Wan CREAT41.21 mg/uRHqdsav42.00-300.00The [facility] Comment on above:Performed By: #### MG, BMP, PHOS #### [facility] [address] [place] [address] Dr. David MaagnaALBUMINon 69-07-0695Uuvxwjh [Mass/Vol]3.3 g/dLCritically low 3.4-5.0The [facility] Hospitalment on above:Performed By: #### CBC #### [facility] [address] [place] [address] Dr. David MaganaCREATININE URINEon 91-84-0775ITINA CREAT19.69 mg/dLCritically low 20.00-300.00The [facility] HospitalComment on above:Performed By: #### MG, BMP, PHOS #### [facility] [address] [place] [address] Dr. David MaganaHEMOGLOBINon 58-69-7548Iuzjgzfjww (Bld) [Mass/Vol]14.9 g/dLNormal 14.0-18.0The [facility] HospitalComment on above:Performed By: #### MG, BMP, PHOS #### [facility] [address] [place] [address] Dr. David MaganaMAGNESIUMon 53-68-1552Myoemkkyx [Mass/Vol]2.2 mg/dLNormal1.8-2.4 The [facility] HospitalComment on above:Performed By: #### CBC #### [facility] [address] [address] [address] David MaganaPHOSPHORUSon 63-71-2581Hmrvquwae [Mass/Vol]3.9 mg/dLNormal2.6-4.7 The [facility] HospitalComment on above:Performed By: #### CBC #### [facility] [address] [place] [address] Dr. David MaganaPROF CHEM 8 (BAS METB)on [id number] gap [Moles/Vol]11.9 mmol/LNormalThe [facility] HospitalComment on above:Performed By: #### CBC #### [facility] [address] [place] [address] Dr. David MaganaCalcium [Mass/Vol]8.8 mg/dLNormal8.5-10.1The [facility] Comment on above:Performed By: #### CBC #### [facility] [address] [place] [address] Dr. David MaganaChloride [Moles/Vol]104 mmol/EKiymbk69-167KbxCleveland Clinic Lutheran Hospital Comment on above:Performed By: #### CBC #### [facility] [address] [address] [address] David MaganaCO2 [Moles/Vol]27.4 mmol/CEmgxyu71.0-32.0The [facility] Comment on above:Performed By: #### CBC #### [facility] [address] [place] [address] Dr. David MaganaCreatinine [Mass/Vol]1.68 mg/dLCritically high0.70-1.30The [facility] HospitalComment on above:Performed By: #### CBC #### [facility] [address] [place] [address] Dr. Hernandez ChangEGFR-AF OMSZXMYD36 mL/min/1.84r5Bgkugxexkq low>=60The [facility] HospitalComment on above:Performed By: #### CBC #### [facility] [address] [address] [address] David EvansGFR-NON AF UUTLBGUM05 mL/min/1.55a7Ypoxgzdwyy low>=60The [facility] HospitalComment on above:Performed By: #### CBC #### [facility] [address] [address] [address] David MaganaGlucose [Mass/Vol]212 mg/dLCritically ghke74-943Uww [facility] HospitalComment on above:Performed By: #### CBC #### [facility] [address] [address] [address] David MagnaaPotassium [Moles/Vol]4.3 mmol/LNormal3.5-5.1The [facility] Comment on above:Performed By: #### CBC #### [facility] [address] [address] [address] David MaganaSodium [Moles/Vol]139 mmol/HLjvmol537-214Ddl [facility] Comment on above:Performed By: #### CBC #### [facility] [address] [address] [address] David Gomez nitrogen [Mass/Vol]25.0 mg/dLCritically high7.0-18.0The [facility] HospitalComment on above:Performed By: #### CBC #### [facility] [address] [address] [address] David Gomez nitrogen/Creatinine [Mass ratio]14.9 mg/mgNormalThe [facility] HospitalComment on above:Performed By: #### CBC #### [facility] [address] [address] [address] David Walls RAND URINEon 66-66-1288TO PROT<5.0Normal<=11.9The [facility] HospitalComment on above:Performed By: #### MG, BMP, PHOS #### [facility] [address] [address] [address] David Mitchell KARI DOP LEG BILon [id number] KARI DOP LEG BILEXAMINATION: US KARI DOP [...] Electronically authenticated by: CLOVER PEREZ Date: 2022-11-02 16:21The Surgical Hospital at SouthwoodsBNPon [id number] peptide B (Bld) [Mass/Vol]2143.0 pg/mLCritically high<=1,800.0[facility] HospitalComment on above:Performed By: #### MG, BMP, PHOS #### [facility] [address] [place] [address] Dr. David Frazier AUTO DIFFon 80-50-7803FUUL #0.0 103/ulNormal0.0-0.1[facility] HospitalComment on above:Performed By: #### A1C #### [facility] [address] [address] [address] David Campbellsophils/100 WBC (Bld)0.3 %Normal0.2-2.0[facility] Comment on above:Performed By: #### A1C #### [facility] [address] [address] [address] David [place] #0.3 103/ulNormal0.0-0.7The [facility] HospitalComment on above: Performed By: #### A1C #### [facility] [address] [address] [address] David Evansosinophils/100 WBC (Bld)2.4 %Normal0.9-7.0The [facility] [facility] Comment on above:Performed By: #### A1C #### [facility] [address] [place] [address] Dr. David Evansrythrocyte distribution width (RBC) [Ratio]13.4 %Bcunxz66.0-15.0 [facility] HospitalComment on above:Performed By: #### A1C #### [facility] [address] [place] [address] Dr. David MaganaHematocrit (Bld) [Volume fraction]42.7 %Nqcirl88.0-54.0The [facility] HospitalComment on above:Performed By: #### A1C #### [facility] [address] [place] [address] Dr. David MaganaHemoglobin (Bld) [Mass/Vol]14.2 g/nRIohdwu46.0-18.0The [facility] HospitalComment on above:Performed By: #### A1C #### [facility] [address] [place] [address] Dr. David Gerardo #0.18 10e3/ulCritically high0.00-0.03The [facility] Comment on above:Performed By: #### A1C #### [facility] [address] [place] [address] Dr. David Gerardo %1.6 %Critically high0.0-0.5The [facility] HospitalComment on above:Performed By: #### A1C #### [facility] [address] [place] [address] Dr. David Patiño #0.9 103/ulCritically low1.2-3.8The [facility] Comment on above:Performed By: #### A1C #### [facility] [address] [place] [address] Dr. David Sotohocytes/100 WBC (Bld)8.1 %Critically low20.5-60.0The [facility] HospitalComment on above:Performed By: #### A1C #### [facility] [address] [place] [address] Dr. David DennisonUAL DIFF REQNONormalThe [facility] HospitalComment on above: Performed By: #### A1C #### [facility] [address] [place] [address] Dr. David Torres (RBC) [Entitic mass]33.3 cyHbddge37.9-34.0The [facility] HospitalComment on above:Performed By: #### A1C #### [facility] [address] [place] [address] Dr. David Faulkner (RBC) [Mass/Vol]33.3 g/sYAcdmed89.9-35.2The [facility] HospitalComment on above:Performed By: #### A1C #### [facility] [address] [place] [address] Dr. David FaulknerV (RBC) [Entitic vol]100.2 fLCritically high80.0-94.0The [facility] HospitalComment on above:Performed By: #### A1C #### [facility] [address] [place] [address] Dr. David Santos #1.2 103/ulCritically high0.3-0.8The [facility] Comment on above:Performed By: #### A1C #### [facility] [address] [place] [address] Dr. David Dickensocytes/100 WBC (Bld)10.5 %Normal1.7-12.0The [facility] Comment on above:Performed By: #### A1C #### [facility] [address] [place] [address] Dr. David Hartley #8.9 103/ulCritically high1.4-6.5The [facility] Comment on above:Performed By: #### A1C #### [facility] [address] [place] [address] Dr. David Pereaophils/100 WBC (Bld)77.1 %Critically high43.0-75.0The [facility] HospitalComment on above:Performed By: #### A1C #### [facility] [address] [place] [address] Dr. David Vigil mean volume (Bld) [Entitic vol]11.3 fLNormal9.5-13.5The [facility] HospitalComment on above:Performed By: #### A1C #### [facility] [address] [place] [address] Dr. David MaganaPLT175 103/mvZaiocn657-752Lgo [facility] HospitalComment on above: Performed By: #### A1C #### [facility] [address] [address] [address] David MaganaRBC4.26 106/ulCritically low4.70-6.10The [facility] HospitalComment on above:Performed By: #### A1C #### [facility] [address] [address] [address] David MaganaWBC11.5 103/ulCritically high4.0-11.0The [facility] HospitalComment on above:Performed By: #### A1C #### [facility] [address] [place] [address] Dr. David Blair 14(COMP METB)on [id number] [Mass/Vol]2.6 g/dL Critically low3.4-5.0The [facility] HospitalComment on above:Performed By: #### MG, BMP, PHOS #### [facility] [address] [place] [address] Dr. David MaganaAlbumin/Globulin [Mass ratio]0.9 {ratio}NormalThe [facility] HospitalComment on above:Performed By: #### MG, BMP, PHOS #### [facility] [address] [place] [address] Dr. David Oates [Catalytic activity/Vol]49 U/QKlcgqw74-843Gce [facility] HospitalComment on above:Performed By: #### MG, BMP, PHOS #### [facility] [address] [place] [address] Dr. David gA [Catalytic activity/Vol]25 U/ZKnzavf80-12Txm [facility] HospitalComment on above:Performed By: #### MG, BMP, PHOS #### [facility] [address] [place] [address] Dr. David Camargo gap [Moles/Vol]12.8 mmol/LNormalThe [facility] Comment on above:Performed By: #### MG, BMP, PHOS #### [facility] [address] [address] [address] David MaganaAST [Catalytic activity/Vol]9 U/LCritically xxm89-97Hgt [facility] HospitalComment on above:Performed By: #### MG, BMP, PHOS #### [facility] [address] [address] [address] David MaganaBilirubin [Mass/Vol]0.5 mg/dLNormal0.2-1.0The [facility] Comment on above:Performed By: #### MG, BMP, PHOS #### [facility] [address] [place] [address] Dr. David MaganaCalcium [Mass/Vol]8.3 mg/dLCritically low8.5-10.1The [facility] HospitalComment on above:Performed By: #### MG, BMP, PHOS #### [facility] [address] [place] [address] Dr. David MaganaChloride [Moles/Vol]105 mmol/FFbfocv65-508Xdd [facility] Comment on above:Performed By: #### MG, BMP, PHOS #### [facility] [address] [address] [address] David MaganaCO2 [Moles/Vol]24.2 mmol/IErnrra06.0-32.0[facility] Comment on above:Performed By: #### MG, BMP, PHOS #### [facility] [address] [place] [address] Dr. David MaganaCreatinine [Mass/Vol]1.28 mg/dLNormal0.70-1.30The [facility] HospitalComment on above:Performed By: #### MG, BMP, PHOS #### [facility] [address] [place] [address] Dr. David EvansGFR-AF TONGAN>60Normal>=60The [facility] HospitalComment on above:Performed By: #### MG, BMP, PHOS #### [facility] [address] [place] [address] Dr. David EvansGFR-NON AF IQYOUHIS70 mL/min/1.84m7Xdpgynyysc low>=60The [facility] HospitalComment on above:Performed By: #### MG, BMP, PHOS #### [facility] [address] [place] [address] Dr. David MaganaGlobulin (S) [Mass/Vol]2.9 g/dLNoUniversity Hospitals Geauga Medical CenterComment on above:Performed By: #### MG, BMP, PHOS #### [facility] [address] [place] [address] Dr. David MaganaGlucose [Mass/Vol]205 mg/dLCritically tbij63-374Kog [facility] HospitalComment on above:Performed By: #### MG, BMP, PHOS #### [facility] [address] [place] [address] Dr. David MaganaPotassium [Moles/Vol]4.0 mmol/LNormal3.5-5.1The [facility] Comment on above:Performed By: #### MG, BMP, PHOS #### [facility] [address] [place] [address] Dr. David MaganaProtein [Mass/Vol]5.5 g/dLCritically low6.4-8.2The [facility] HospitalComment on above:Performed By: #### MG, BMP, PHOS #### [facility] [address] [place] [address] Dr. David MaganaSodium [Moles/Vol]138 mmol/KJmikeb515-151Ngz [facility] Comment on above:Performed By: #### MG, BMP, PHOS #### [facility] [address] [place] [address] Dr. David MaganaUrea nitrogen [Mass/Vol]36.0 mg/dLCritically high7.0-18.0The [facility] HospitalComment on above:Performed By: #### MG, BMP, PHOS #### [facility] [address] [place] [address] Dr. David MaganaUrea nitrogen/Creatinine [Mass ratio]28.1 mg/mgNoUniversity Hospitals Geauga Medical CenterComment on above:Performed By: #### MG, BMP, PHOS #### [facility] [address] [place] [address] Dr. David Chau [id number] peptide B (Bld) [Mass/Vol]3485.0 pg/mLCritically high<=1,800.0[facility] HospitalComment on above:Result Comment: repeatedPerformed By: #### A1C #### [facility] [address] [place] [address] Dr. David Frazier AUTO DIFFon [id number] #0.0 103/ulNormal0.0-0.1The [facility] HospitalComment on above:Performed By: #### CBC #### [facility] [address] [place] [address] Dr. David MaganaBasophils/100 WBC (Bld)0.3 %Normal0.2-2.0The [facility] Comment on above:Performed By: #### CBC #### [facility] [address] [place] [address] Dr. David Colorado #0.2 103/ulNormal0.0-0.7The [facility] HospitalComment on above: Performed By: #### CBC #### [facility] [address] [place] [address] Dr. David Evansosinophils/100 WBC (Bld)1.9 %Normal0.9-7.0The [facility] Comment on above:Performed By: #### CBC #### [facility] [address] [place] [address] Dr. David Evansrythrocyte distribution width (RBC) [Ratio]13.4 %Fusylp69.0-15.0 The [facility] HospitalComment on above:Performed By: #### CBC #### [facility] [address] [place] [address] Dr. David MaganaHematocrit (Bld) [Volume fraction]42.5 %Tfnhpf74.0-54.0The [facility] HospitalComment on above:Performed By: #### CBC #### [facility] [address] [address] [address] David MaganaHemoglobin (Bld) [Mass/Vol]14.2 g/jRIehmcf28.0-18.0The [facility] HospitalComment on above:Performed By: #### CBC #### [facility] [address] [place] [address] Dr. David Gerardo #0.22 10e3/ulCritically high0.00-0.03The [facility] Comment on above:Performed By: #### CBC #### [facility] [address] [place] [address] Dr. aDvid Gerardo %2.1 %Critically high0.0-0.5The [facility] HospitalComment on above:Performed By: #### CBC #### [facility] [address] [place] [address] Dr. David Patiño #0.8 103/ulCritically low1.2-3.8The [facility] Comment on above:Performed By: #### CBC #### [facility] [address] [place] [address] Dr. David Sotohocytes/100 WBC (Bld)7.7 %Critically low20.5-60.0The [facility] HospitalComment on above:Performed By: #### CBC #### [facility] [address] [place] [address] Dr. David DennisonUAL DIFF REQNONormalThe [facility] HospitalComment on above: Performed By: #### CBC #### [facility] [address] [place] [address] Dr. David Faulkner (RBC) [Entitic mass]33.0 khLudjus75.9-34.0The [facility] HospitalComment on above:Performed By: #### CBC #### [facility] [address] [place] [address] Dr. David Faulkner (RBC) [Mass/Vol]33.4 g/dWZdehej55.9-35.2The [facility] HospitalComment on above:Performed By: #### CBC #### [facility] [address] [address] [address] David FaulknerV (RBC) [Entitic vol]98.8 fLCritically high80.0-94.0The [facility] HospitalComment on above:Performed By: #### CBC #### [facility] [address] [place] [address] Dr. David Santos #1.0 103/ulCritically high0.3-0.8The [facility] Comment on above:Performed By: #### CBC #### [facility] [address] [place] [address] Dr. David Dickensocytes/100 WBC (Bld)9.7 %Normal1.7-12.0[facility] Comment on above:Performed By: #### CBC #### [facility] [address] [place] [address] Dr. David Hartley #8.1 103/ulCritically high1.4-6.5ThMercy Health [facility] Comment on above:Performed By: #### CBC #### [facility] [address] [place] [address] Dr. David Sargentutrophils/100 WBC (Bld)78.3 %Critically high43.0-75.0The [facility] HospitalComment on above:Performed By: #### CBC #### [facility] [address] [place] [address] Dr. David Ortegalet mean volume (Bld) [Entitic vol]10.7 fLNormal9.5-13.5The [facility] HospitalComment on above:Performed By: #### CBC #### [facility] [address] [place] [address] Dr. David MaganaPLT177 103/haWfnxjz297-217Qaw [facility] HospitalComment on above: Performed By: #### CBC #### [facility] [address] [place] [address] Dr. David MaganaRBC4.30 106/ulCritically low4.70-6.10The [facility] HospitalComment on above:Performed By: #### CBC #### [facility] [address] [address] [address] David MaganaWBC10.4 103/ulNormal4.0-11.0The [facility] HospitalComment on above:Performed By: #### CBC #### [facility] [address] [address] [address] David MaganaPROF 14(COMP METB)on [id number] [Mass/Vol]2.6 g/dL Critically low3.4-5.0The [facility] HospitalComment on above:Performed By: #### A1C #### [facility] [address] [place] [address] Dr. David MaganaAlbumin/Globulin [Mass ratio]1.0 {ratio}NormalThe [facility] HospitalComment on above:Performed By: #### A1C #### [facility] [address] [place] [address] Dr. David HartP [Catalytic activity/Vol]50 U/AHorxou89-760Lsl [facility] HospitalComment on above:Performed By: #### A1C #### [facility] [address] [place] [address] Dr. David Ag [Catalytic activity/Vol]28 U/AQexrnw14-04Pql [facility] HospitalComment on above:Performed By: #### A1C #### [facility] [address] [place] [address] Dr. David Camargo gap [Moles/Vol]11.4 mmol/LNormalThe [facility] Comment on above:Performed By: #### A1C #### [facility] [address] [place] [address] Dr. David MaganaAST [Catalytic activity/Vol]13 U/LCritically ndi94-54Dwp [facility] HospitalComment on above:Performed By: #### A1C #### [facility] [address] [place] [address] Dr. David MaganaBilirubin [Mass/Vol]0.4 mg/dLNormal0.2-1.0The [facility] Comment on above:Performed By: #### A1C #### [facility] [address] [address] [address] David MaganaCalcium [Mass/Vol]8.4 mg/dLCritically low8.5-10.1The [facility] Hospitalment on above:Performed By: #### A1C #### [facility] [address] [address] [address] David MaganaChloride [Moles/Vol]107 mmol/FTiofrc04-739Xcz [facility] Comment on above:Performed By: #### A1C #### [facility] [address] [address] [address] David MaganaCO2 [Moles/Vol]24.6 mmol/XWxokfg35.0-32.0The [facility] Comment on above:Performed By: #### A1C #### [facility] [address] [address] [address] David MaganaCreatinine [Mass/Vol]1.26 mg/dLNormal0.70-1.30The [facility] HospitalComment on above:Performed By: #### A1C #### [facility] [address] [address] [address] Hernandez ChangEGFR-AF TONGAN>60Normal>=60The [facility] HospitalCombeaumont hospital on above:Performed By: #### A1C #### [facility] [address] [address] [address] David EvansGFR-NON AF HLRQOPNG99 mL/min/1.76s2Uwaiwhyhbf low>=60The [facility] HospitalComment on above:Performed By: #### A1C #### [facility] [address] [address] [address] David MaganaGlobulin (S) [Mass/Vol]2.7 g/dLNormalThe [facility] HospitalComment on above:Performed By: #### A1C #### [facility] [address] [address] [address] David MaganaGlucose [Mass/Vol]203 mg/dLCritically apwe02-095Ezs [facility] HospitalComment on above:Performed By: #### A1C #### [facility] [address] [address] [address] David MaganaPotassium [Moles/Vol]4.0 mmol/LNormal3.5-5.1The [facility] Comment on above:Performed By: #### A1C #### [facility] [address] [address] [address] David MaganaProtein [Mass/Vol]5.3 g/dLCritically low6.4-8.2The [facility] HospitalComment on above:Performed By: #### A1C #### [facility] [address] [address] [address] David MaganaSodium [Moles/Vol]139 mmol/ZXrnqxq786-426Aph [facility] Comment on above:Performed By: #### A1C #### [facility] [address] [place] [address] Dr. David MaganaUrea nitrogen [Mass/Vol]33.0 mg/dLCritically high7.0-18.0The [facility] HospitalComment on above:Performed By: #### A1C #### [facility] [address] [address] [address] David Gomez nitrogen/Creatinine [Mass ratio]26.2 mg/mgNormalThe [facility] HospitalComment on above:Performed By: #### A1C #### [facility] [address] [place] [address] Dr. David Chau 45-19-0489Pilltavutif peptide B (Bld) [Mass/Vol]7478.0 pg/mLCritically high<=1,800.0The [facility] HospitalComment on above:Performed By: #### A1C #### [facility] [address] [place] [address] Dr. David Frazier AUTO DIFFon 92-74-1214WSRB #0.1 103/ulNormal0.0-0.1The [facility] HospitalComment on above:Performed By: #### MG, BMP, PHOS #### [facility] [address] [address] [address] David MaganaBasophils/100 WBC (Bld)0.8 %Normal0.2-2.0The [facility] Comment on above:Performed By: #### MG, BMP, PHOS #### [facility] [address] [place] [address] Dr. David Colorado #0.1 103/ulNormal0.0-0.7The [facility] HospitalComment on above: Performed By: #### MG, BMP, PHOS #### [facility] [address] [place] [address] Dr. David Evansosinophils/100 WBC (Bld)0.6 %Critically low0.9-7.0The [facility] HospitalComment on above:Performed By: #### MG, BMP, PHOS #### [facility] [address] [place] [address] Dr. David Evansrythrocyte distribution width (RBC) [Ratio]13.4 %Dhlqas07.0-15.0 The [facility] HospitalComment on above:Performed By: #### MG, BMP, PHOS #### [facility] [address] [place] [address] Dr. David MaganaHematocrit (Bld) [Volume fraction]43.2 %Wrwhbu15.0-54.0The [facility] HospitalComment on above:Performed By: #### MG, BMP, PHOS #### [facility] [address] [place] [address] Dr. David MaganaHemoglobin (Bld) [Mass/Vol]14.2 g/rSPncgcg52.0-18.0The [facility] HospitalComment on above:Performed By: #### MG, BMP, PHOS #### [facility] [address] [place] [address] Dr. David Gerardo #0.21 10e3/ulCritically high0.00-0.03The [facility] Comment on above:Performed By: #### MG, BMP, PHOS #### [facility] [address] [place] [address] Dr. David MaganaIG %2.0 %Critically high0.0-0.5The [facility] HospitalComment on above:Performed By: #### MG, BMP, PHOS #### [facility] [address] [place] [address] Dr. David Patiño #0.8 103/ulCritically low1.2-3.8ThMercy Health [facility] Comment on above:Performed By: #### MG, BMP, PHOS #### [facility] [address] [place] [address] Dr. David Wincytes/100 WBC (Bld)7.7 %Critically low20.5-60.0The [facility] HospitalComment on above:Performed By: #### MG, BMP, PHOS #### [facility] [address] [place] [address] Dr. David MILAN REQNONormalThe [facility] HospitalComment on above: Performed By: #### MG, BMP, PHOS #### [facility] [address] [place] [address] Dr. David Faulkner (RBC) [Entitic mass]33.2 tmLheatg94.9-34.0The [facility] HospitalComment on above:Performed By: #### MG, BMP, PHOS #### [facility] [address] [place] [address] Dr. David Faulkner (RBC) [Mass/Vol]32.9 g/kDSyiphq01.9-35.2The [facility] HospitalComment on above:Performed By: #### MG, BMP, PHOS #### [facility] [address] [place] [address] Dr. David Faulkner (RBC) [Entitic vol]100.9 fLCritically high80.0-94.0The [facility] HospitalComment on above:Performed By: #### MG, BMP, PHOS #### [facility] [address] [place] [address] Dr. David Santos #1.0 103/ulCritically high0.3-0.8The [facility] Comment on above:Performed By: #### MG, BMP, PHOS #### [facility] [address] [place] [address] Dr. David Dickensocytes/100 WBC (Bld)10.0 %Normal1.7-12.0The [facility] Comment on above:Performed By: #### MG, BMP, PHOS #### [facility] [address] [place] [address] Dr. David SargentUT #8.1 103/ulCritically high1.4-6.5The [facility] Comment on above:Performed By: #### MG, BMP, PHOS #### [facility] [address] [place] [address] Dr. David Sargentutrophils/100 WBC (Bld)78.9 %Critically high43.0-75.0The [facility] HospitalComment on above:Performed By: #### MG, BMP, PHOS #### [facility] [address] [place] [address] Dr. David Ortegalet mean volume (Bld) [Entitic vol]10.8 fLNormal9.5-13.5The [facility] HospitalComment on above:Performed By: #### MG, BMP, PHOS #### [facility] [address] [place] [address] Dr. David MaganaPLT172 103/vbXvasho018-221Gcv [facility] HospitalComment on above: Performed By: #### MG, BMP, PHOS #### [facility] [address] [place] [address] Dr. David BurgosC4.28 106/ulCritically low4.70-6.10The [facility] HospitalComment on above:Performed By: #### MG, BMP, PHOS #### [facility] [address] [place] [address] Dr. David MaganaWBC10.3 103/ulNormal4.0-11.0The [facility] HospitalComment on above:Performed By: #### MG, BMP, PHOS #### [facility] [address] [place] [address] Dr. David Varghese URINEon [id number] URINEIsolate 1 Escherichia coli 15,000 cfu/mL of [...] <=16 S F Trimethoprim/Sulfamethoxazole >=320 R FNormalThe [facility] HospitalComment on above:Performed By: #### MG, ERICK PHOS #### [facility] [address] [place] [address] Dr. David MaganaPROF 14(COMP METB)on [id number] [Mass/Vol]2.6 g/dL Critically low3.4-5.0The [facility] HospitalComment on above:Performed By: #### A1C #### [facility] [address] [place] [address] Dr. David MaganaAlbumin/Globulin [Mass ratio]0.9 {ratio}NormalThe [facility] HospitalComment on above:Performed By: #### A1C #### [facility] [address] [place] [address] Dr. David aOtes [Catalytic activity/Vol]48 U/ZDbygds50-968Bus [facility] Hospitalment on above:Performed By: #### A1C #### [facility] [address] [address] [address] David Ag [Catalytic activity/Vol]27 U/MOxuypy03-51Ovj [facility] HospitalComment on above:Performed By: #### A1C #### [facility] [address] [place] [address] Dr. David Camargo gap [Moles/Vol]13.4 mmol/LNormalThe [facility] Comment on above:Performed By: #### A1C #### [facility] [address] [address] [address] David MaganaAST [Catalytic activity/Vol]22 U/RTkjymm49-96Lpy [facility] Hospitalment on above:Performed By: #### A1C #### [facility] [address] [address] [address] David MaganaBilirubin [Mass/Vol]0.5 mg/dLNormal0.2-1.0[facility] Comment on above:Performed By: #### A1C #### [facility] [address] [address] [address] David MaganaCalcium [Mass/Vol]8.3 mg/dLCritically low8.5-10.1The [facility] HospitalComment on above:Performed By: #### A1C #### [facility] [address] [address] [address] David MaganaChloride [Moles/Vol]105 mmol/BYzbbay48-339Mug [facility] Comment on above:Performed By: #### A1C #### [facility] [address] [place] [address] Dr. David MaganaCO2 [Moles/Vol]21.0 mmol/MXtauzd00.0-32.0The [facility] Comment on above:Performed By: #### A1C #### [facility] [address] [place] [address] Dr. David MaganaCreatinine [Mass/Vol]1.38 mg/dLCritically high0.70-1.30The [facility] HospitalComment on above:Performed By: #### A1C #### [facility] [address] [place] [address] Dr. Hernandez ChangEGFR-AF HEKGWTZJ44 mL/min/1.64t9Pzqmjb>=60The [facility] Comment on above:Performed By: #### A1C #### [facility] [address] [address] [address] David EvansGFR-NON AF DHBFIDBG64 mL/min/1.34e7Dxxhrabrda low>=60The [facility] HospitalComment on above:Performed By: #### A1C #### [facility] [address] [address] [address] David MaganaGlobulin (S) [Mass/Vol]2.8 g/dLNoUniversity Hospitals Geauga Medical CenterComment on above:Performed By: #### A1C #### [facility] [address] [address] [address] David MaganaGlucose [Mass/Vol]156 mg/dLCritically mdwg94-475Kfw [facility] HospitalComment on above:Performed By: #### A1C #### [facility] [address] [address] [address] David MaganaPotassium [Moles/Vol]4.4 mmol/LNormal3.5-5.1The [facility] Comment on above:Performed By: #### A1C #### [facility] [address] [address] [address] David MaganaProtein [Mass/Vol]5.4 g/dLCritically low6.4-8.2The [facility] HospitalComment on above:Performed By: #### A1C #### [facility] [address] [address] [address] David MaganaSodium [Moles/Vol]135 mmol/LCritically ewm918-836Vdu [facility] HospitalComment on above:Performed By: #### A1C #### [facility] [address] [address] [address] David MaganaUrea nitrogen [Mass/Vol]40.0 mg/dLCritically high7.0-18.0The [facility] HospitalComment on above:Performed By: #### A1C #### [facility] [address] [address] [address] David Gomez nitrogen/Creatinine [Mass ratio]29.0 mg/mgNoUniversity Hospitals Geauga Medical CenterComment on above:Performed By: #### A1C #### [facility] [address] [address] [address] David Chau 20-65-7557Esoqtkscsne peptide B (Bld) [Mass/Vol]10754.0 pg/mLCritically high<=1,800.0The [facility] HospitalComment on above:Performed By: #### CVDTBH #### [facility] [address] [place] [address] Dr. David Frazier AUTO DIFFon [id number] #0.0 103/ulNormal0.0-0.1The [facility] Hospitalment on above:Performed By: #### CBC #### [facility] [address] [place] [address] Dr. David MaganaBasophils/100 WBC (Bld)0.3 %Normal0.2-2.0The [facility] Comment on above:Performed By: #### CBC #### [facility] [address] [place] [address] Dr. David Colorado #0.0 103/ulNormal0.0-0.7The [facility] HospitalComment on above: Performed By: #### CBC #### [facility] [address] [place] [address] Dr. David Evansosinophils/100 WBC (Bld)0.2 %Critically low0.9-7.0The [facility] HospitalComment on above:Performed By: #### CBC #### [facility] [address] [place] [address] Dr. David Evansrythrocyte distribution width (RBC) [Ratio]13.4 %Lrizpx39.0-15.0 The [facility] HospitalComment on above:Performed By: #### CBC #### [facility] [address] [place] [address] Dr. David MaganaHematocrit (Bld) [Volume fraction]43.4 %Gjodob02.0-54.0The [facility] HospitalComment on above:Performed By: #### CBC #### [facility] [address] [place] [address] Dr. David MaganaHemoglobin (Bld) [Mass/Vol]14.6 g/bHZhufqa01.0-18.0The [facility] HospitalComment on above:Performed By: #### CBC #### [facility] [address] [place] [address] Dr. David Gerardo #0.18 10e3/ulCritically high0.00-0.03[facility] Comment on above:Performed By: #### CBC #### [facility] [address] [address] [address] David Gerardo %1.5 %Critically high0.0-0.5ThMercy Health St. Joseph Warren HospitalComment on above:Performed By: #### CBC #### [facility] [address] [address] [address] David RamosSergio #0.8 103/ulCritically low1.2-3.8The [facility] Comment on above:Performed By: #### CBC #### [facility] [address] [place] [address] Dr. David Sotohocytes/100 WBC (Bld)6.6 %Critically low20.5-60.0The [facility] HospitalComment on above:Performed By: #### CBC #### [facility] [address] [place] [address] Dr. David DennisonUAL DIFF REQNONormalThe [facility] HospitalComment on above: Performed By: #### CBC #### [facility] [address] [place] [address] Dr. David Faulkner (RBC) [Entitic mass]33.7 asPntacu12.9-34.0[facility] HospitalComment on above:Performed By: #### CBC #### [facility] [address] [place] [address] Dr. David Faulkner (RBC) [Mass/Vol]33.6 g/dURogxni02.9-35.2The [facility] HospitalComment on above:Performed By: #### CBC #### [facility] [address] [place] [address] Dr. David Faulkner (RBC) [Entitic vol]100.2 fLCritically high80.0-94.0[facility] HospitalComment on above:Performed By: #### CBC #### [facility] [address] [place], [place] [address] Dr. David Santos #1.1 103/ulCritically high0.3-0.8The [facility] Comment on above:Performed By: #### CBC #### [facility] [address] [place] [address] Dr. David Dickensocytes/100 WBC (Bld)9.3 %Normal1.7-12.0[facility] Comment on above:Performed By: #### CBC #### [facility] [address] [place] [address] Dr. David Hartley #9.6 103/ulCritically high1.4-6.5The [facility] Comment on above:Performed By: #### CBC #### [facility] [address] [place] [address] Dr. David Sargentutrophils/100 WBC (Bld)82.1 %Critically high43.0-75.0The [facility] HospitalComment on above:Performed By: #### CBC #### [facility] [address] [place] [address] Dr. David Ortegalet mean volume (Bld) [Entitic vol]10.8 fLNormal9.5-13.5ThMercy Health St. Joseph Warren HospitalComment on above:Performed By: #### CBC #### [facility] [address] [place] [address] Dr. David MaganaPLT202 103/mnPjzrno970-239Xdu [facility] HospitalComment on above: Performed By: #### CBC #### [facility] [address] [place] [address] Dr. David MaganaRBC4.33 106/ulCritically low4.70-6.10The [facility] HospitalComment on above:Performed By: #### CBC #### [facility] [address] [place] [address] Dr. David MaganaWBC11.7 103/ulCritically high4.0-11.0The [facility] HospitalComment on above:Performed By: #### CBC #### [facility] [address] [place] [address] Dr. David RaygozaF 14(COMP METB)on [id number] [Mass/Vol]3.4 g/dLNormal 3.4-5.0The [facility] HospitalComment on above:Performed By: #### A1C #### [facility] [address] [address] [address] David MaganaAlbumin/Globulin [Mass ratio]1.1 {ratio}NormalThe [facility] HospitalComment on above:Performed By: #### A1C #### [facility] [address] [place] [address] Dr. David HartP [Catalytic activity/Vol]63 U/YLtgtun38-987Jid [facility] HospitalComment on above:Performed By: #### A1C #### [facility] [address] [place] [address] Dr. David HartT [Catalytic activity/Vol]34 U/USmpfri76-65Ius [facility] HospitalComment on above:Performed By: #### A1C #### [facility] [address] [place] [address] Dr. David Camagro gap [Moles/Vol]20.9 mmol/LNormalThe [facility] Comment on above:Performed By: #### A1C #### [facility] [address] [place] [address] Dr. David MaganaAST [Catalytic activity/Vol]18 U/BEfswbd53-41Fbf [facility] HospitalComment on above:Performed By: #### A1C #### [facility] [address] [place] [address] Dr. David MaganaBilirubin [Mass/Vol]0.5 mg/dLNormal0.2-1.0The [facility] Comment on above:Performed By: #### A1C #### [facility] [address] [place] [address] Dr. David MaganaCalcium [Mass/Vol]8.5 mg/dLNormal8.5-10.1The [facility] Comment on above:Performed By: #### A1C #### [facility] [address] [place], [place] [address] Dr. David MaganaChloride [Moles/Vol]99 mmol/WMjrmin24-166Sfq [facility] Comment on above:Performed By: #### A1C #### [facility] [address] [address] [address] David MaganaCO2 [Moles/Vol]19.1 mmol/LCritically low21.0-32.0The [facility] HospitalComment on above:Performed By: #### A1C #### [facility] [address] [address] [address] David MaganaCreatinine [Mass/Vol]1.80 mg/dLCritically high0.70-1.30The [facility] HospitalComment on above:Performed By: #### A1C #### [facility] [address] [place] [address] Dr. Hernandez ChangEGFR-AF NYFKWMTX27 mL/min/1.72n3Ljozhkvccp low>=60The [facility] HospitalComment on above:Performed By: #### A1C #### [facility] [address] [place] [address] Dr. David EvansGFR-NON AF LPMBBUEM79 mL/min/1.39b0Ebkxqpbkgt low>=60The [facility] HospitalComment on above:Performed By: #### A1C #### [facility] [address] [place] [address] Dr. David MaganaGlobulin (S) [Mass/Vol]3.2 g/dLNormalThe [facility] HospitalComment on above:Performed By: #### A1C #### [facility] [address] [place] [address] Dr. David MaganaGlucose [Mass/Vol]287 mg/dLCritically uuiq19-708Nkw [facility] HospitalComment on above:Performed By: #### A1C #### [facility] [address] [address] [address] David MaganaPotassium [Moles/Vol]5.0 mmol/LNormal3.5-5.1The [facility] Comment on above:Performed By: #### A1C #### [facility] [address] [address] [address] David MaganaProtein [Mass/Vol]6.6 g/dLNormal6.4-8.2The [facility] Comment on above:Performed By: #### A1C #### [facility] [address] [place] [address] Dr. David Linkdium [Moles/Vol]134 mmol/LCritically xxk020-907Dja [facility] HospitalComment on above:Performed By: #### A1C #### [facility] [address] [place] [address] Dr. David Gomez nitrogen [Mass/Vol]51.0 mg/dLCritically high7.0-18.0The [facility] HospitalComment on above:Performed By: #### A1C #### [facility] [address] [place] [address] Dr. David Gomez nitrogen/Creatinine [Mass ratio]28.3 mg/mgNoUniversity Hospitals Geauga Medical CenterComment on above:Performed By: #### A1C #### [facility] [address] [place] [address] Dr. David [facility] MODENASAL CANNULAThe Surgical Hospital at SouthwoodsComment on above:Performed By: #### A1C #### [facility] [address] [place] [address] Dr. David Barraza TESTPositiveThe Surgical Hospital at SouthwoodsComment on above: Performed By: #### A1C #### [facility] [address] [place] [address] Dr. David Marinelli excess Calc (Bld) [Moles/Vol]-9.0000 mmol/LCritically low -2.0-2.0The [facility] HospitalComment on above:Performed By: #### A1C #### [facility] [address] [place] [address] Dr. David Coleman [facility] HospitalComment on above: Performed By: #### A1C #### [facility] [address] [place] [address] Dr. David MaganaCPAPMercy Health Clermont Hospital on above:Performed By: #### A1C #### [facility] [address] [address] [address] David MaganaKpjcyRUH7DxagbvM[address] on above:Performed By: #### A1C #### [facility] [address] [address] [address] David MaganaHCO3 (Bld) [Moles/Vol]18.4 mmol/LCritically low22.0-26.0The [facility] on above:Performed By: #### A1C #### [facility] [address] [address] [address] David [address] [place] [address] on above:Performed By: #### A1C #### [facility] [address] [place] [address] Dr. David HigginsBucyrus Community HospitalCombeaumont hospital on above: Performed By: #### A1C #### [facility] [address] [place] [address] Dr. David MaganaOxygen (Bld) [Partial pressure]69.5 mm[Hg]Critically low 80.0-100.0The [facility] on above:Performed By: #### A1C #### [facility] [address] [place] [address] Dr. David MaganaOxygen saturation in Blood94.2 %Critically low95.0-100.0The [facility] on above:Performed By: #### A1C #### [facility] [address] [place] [address] Dr. David MaganaPCO229.6 mmHgCritically low35.0-45.0The [facility] on above:Performed By: #### A1C #### [facility] [address] [place] [address] Dr. David VizcarraMercy Health Fairfield Hospital on above:Performed By: #### A1C #### [facility] [address] [place] [address] Dr. David Phillips (Bld)7.355 [pH]Normal7.350-7.450The [facility] on above:Performed By: #### A1C #### [facility] [address] [place] [address] Dr. David CruzGeorgetown Behavioral Hospital on above:Performed By: #### A1C #### [facility] [address] [place] [address] Dr. Hernandez [facility] on above:Performed By: #### A1C #### [facility] [address] [place] [address] Dr. David George [facility] CenterCombeaum[facility] on above: Performed By: #### A1C #### [facility] [address] [place] [address] Dr. David MeloGeorgetown Behavioral Hospital on above:Performed By: #### A1C #### [facility] [address] [place] [address] Dr. David MaganaUniversity Hospitals [facility] on above:Performed By: #### A1C #### [facility] [address] [place] [address] Dr. Hernandez [facility] on above:Performed By: #### A1C #### [facility] [address] [place] [address] Dr. David Chau [id number] peptide B (Bld) [Mass/Vol]7047.0 pg/mLCritically high<=1,800.0[facility] on above:Performed By: #### CVDTBH #### [facility] [address] [place] [address] Dr. David SOOD 3-6on [id number] [Catalytic activity/Vol]396 U/L Critically vcer73-701Dhy [facility] on above:Performed By: #### MG, BMP, PHOS #### [facility] [address] [place] [address] Dr. David Vazquez.MB [Mass/Vol]2.94 ng/mLNormal<=3.60[facility] Comment on above:Performed By: #### ERICK ESPINOSA PHOS #### [facility] [address] [place] [address] Dr. David DacostaTROP11.1 pg/mLNormal4.0-76.1The [facility] HospitalComment on above:Result Comment: CUT-OFF POINTS HAVE BEEN ESTABLISHED BASED ON THE FOURTH UNIVERSAL DEFINITIONS OF MYOCARDIAL INFARCTION. THE UPPER REFERENCE LIMIT (URL) OF TROPONIN, DEFINED THE 99TH PERCENTILE OF cTnI DISTRIBUTION IN A REFERENCE POPULATION, HAS BEEN CONFIRMED THE DECISION THRESHOLD FOR DC DIAGNOSIS.Performed By: #### ERICK ESPINOSA, PHOS #### [facility] [address] [place] [address] Dr. David Vazquez [Catalytic activity/Vol]58 U/DPejydr35-607Sih [facility] HospitalComment on above:Performed By: #### MG BMP, PHOS #### [facility] [address] [place] [address] Dr. David Vazquez.MB [Mass/Vol]1.71 ng/mLNormal<=3.60The [facility] Comment on above:Performed By: #### MGERICK, PHOS #### [facility] [address] [place] [address] Dr. David CavazosOP10.6 pg/mLNormal4.0-76.1The [facility] HospitalComment on above:Result Comment: CUT-OFF POINTS HAVE BEEN ESTABLISHED BASED ON THE FOURTH UNIVERSAL DEFINITIONS OF MYOCARDIAL INFARCTION. THE UPPER REFERENCE LIMIT (URL) OF TROPONIN, DEFINED THE 99TH PERCENTILE OF cTnI DISTRIBUTION IN A REFERENCE POPULATION, HAS BEEN CONFIRMED THE DECISION THRESHOLD FOR DC DIAGNOSIS.Performed By: #### MG BMP, PHOS #### [facility] [address] [place] [address] Dr. David Frazier AUTO DIFFon [id number] #0.0 103/ulNormal0.0-0.1The [facility] HospitalComment on above:Performed By: #### MG BMP, PHOS #### [facility] [address] [place] [address] Dr. David MaganaBasophils/100 WBC (Bld)0.2 %Normal0.2-2.0The [facility] Comment on above:Performed By: #### MG, BMP, PHOS #### [facility] [address] [place] [address] Dr. David Colorado #0.0 103/ulNormal0.0-0.7The [facility] HospitalComment on above: Performed By: #### MG, BMP, PHOS #### [facility] [address] [place] [address] Dr. David Evansosinophils/100 WBC (Bld)0.2 %Critically low0.9-7.0The [facility] HospitalComment on above:Performed By: #### MG, BMP, PHOS #### [facility] [address] [place] [address] Dr. David Adamsthrocyte distribution width (RBC) [Ratio]13.2 %Cpootq44.0-15.0 The [facility] HospitalComment on above:Performed By: #### MG, BMP, PHOS #### [facility] [address] [place] [address] Dr. David MaganaHematocrit (Bld) [Volume fraction]43.8 %Hcxpzg53.0-54.0The [facility] HospitalComment on above:Performed By: #### MG, BMP, PHOS #### [facility] [address] [place] [address] Dr. David MaganaHemoglobin (Bld) [Mass/Vol]14.5 g/aWKxctzm18.0-18.0The [facility] HospitalComment on above:Performed By: #### MG, BMP, PHOS #### [facility] [address] [place] [address] Dr. David MaganaIG #0.15 10e3/ulCritically high0.00-0.03The [facility] Comment on above:Performed By: #### MG, BMP, PHOS #### [facility] [address] [address] [address] David Gerardo %1.3 %Critically high0.0-0.5The [facility] HospitalComment on above:Performed By: #### MG, BMP, PHOS #### [facility] [address] [place] [address] Dr. David Patiño #0.5 103/ulCritically low1.2-3.8The [facility] Comment on above:Performed By: #### MG, BMP, PHOS #### [facility] [address] [address] [address] David Sotohocytes/100 WBC (Bld)3.8 %Critically low20.5-60.0The [facility] HospitalComment on above:Performed By: #### MG, BMP, PHOS #### [facility] [address] [place] [address] Dr. David DennisonUAL DIFF REQNONormalThe [facility] HospitalComment on above: Performed By: #### MG, BMP, PHOS #### [facility] [address] [place] [address] Dr. David Faulkner (RBC) [Entitic mass]32.7 qrRtzzhj49.9-34.0The [facility] HospitalComment on above:Performed By: #### MG, BMP, PHOS #### [facility] [address] [place] [address] Dr. David Faulkner (RBC) [Mass/Vol]33.1 g/tKCuoupc51.9-35.2The [facility] HospitalComment on above:Performed By: #### MG, BMP, PHOS #### [facility] [address] [place] [address] Dr. David Faulkner (RBC) [Entitic vol]98.9 fLCritically high80.0-94.0The [facility] HospitalComment on above:Performed By: #### MG, BMP, PHOS #### [facility] [address] [place] [address] Dr. David Santos #0.7 103/ulNormal0.3-0.8The [facility] HospitalComment on above:Performed By: #### MG, BMP, PHOS #### [facility] [address] [place] [address] Dr. David Dickensocytes/100 WBC (Bld)5.7 %Normal1.7-12.0[facility] Comment on above:Performed By: #### MG, BMP, PHOS #### [facility] [address] [place] [address] Dr. David SargentUT #10.4 103/ulCritically high1.4-6.5The [facility] Comment on above:Performed By: #### MG, BMP, PHOS #### [facility] [address] [place] [address] Dr. David Sargentutrophils/100 WBC (Bld)88.8 %Critically high43.0-75.0The [facility] HospitalComment on above:Performed By: #### MG, BMP, PHOS #### [facility] [address] [place] [address] Dr. David MaganaPlatelet mean volume (Bld) [Entitic vol]11.0 fLNormal9.5-13.5The [facility] HospitalComment on above:Performed By: #### MG, BMP, PHOS #### [facility] [address] [place] [address] Dr. David MaganaPLT198 103/izFozzdy547-469Aai [facility] HospitalComment on above: Performed By: #### MG, BMP, PHOS #### [facility] [address] [place] [address] Dr. David MaganaRBC4.43 106/ulCritically low4.70-6.10The [facility] HospitalComment on above:Performed By: #### MG, BMP, PHOS #### [facility] [address] [place] [address] Dr. David MaganaWBC11.8 103/ulCritically high4.0-11.0The [facility] HospitalComment on above:Performed By: #### MG, BMP, PHOS #### [facility] [address], [place] [address] Dr. David Washington HEAD WO CONon 07-37-2004CS HEAD WO CONINDICATION: 82 years old; Male. [...] Electronically authenticated by: FRANCISCO ZELAYA Date: 2022-07-18 05:12[facility]woodsCovid-19 PCR ([facility]VDTB[facility])on 03-48-3849VXLN-CoV-2 (COVID-19) RNA SULTANA+probe Ql (Unsp spec)DetectedCritically abnormalNOT DETECTEDThe [facility] HospitalComment on above:Result Comment: This test is not yet approved or cleared by the [place] FDA. When there are no FDA-approved or cleared tests available, and other criteria are met, FDA can make tests available under an emergency access mechanism called an Emergency Use Authorization (EUA). The EUA for this test is supported by the Test Fixture Assembler of Health and Human Service's declaration that [...] longer be used).Performed By: #### CVDTBH #### [facility] [address], [place] [address] Dr. David Corrales-DIMERon 31-37-9536S-DIMER1.69 mg/L FEUCritically high<=0.59[facility]ment on above:Performed By: #### CBC #### [facility] [address] [place] [address] Dr. David MaganaD-DIMER COMMENTSSEE BELOWMercy Health Clermont Hospital on above:Result Comment: Increases in D-Dimer concentration [...] generalized hospitalization. Performed By: #### CBC #### [facility] [address] [place] [address] Dr. David MaganaPOINT OF CARE GLUCOSEon 03-32-3951Rqvojuw [Mass/Vol]329 mg/dL Critically ynyk89-575Gkj [facility] HospitalCombeaum[facility] on above:Performed By: #### POCGLUC #### [facility] [address] [place] [address] Dr. David MaganaGlucose [Mass/Vol]354 mg/dLCritically mqoh63-960Bqe [facility] on above:Performed By: #### POCGLUC #### [facility] [address] [place] [address] Dr. David MaganaPROF 14(COMP METB)on 44-69-6071Pcxdrpr [Mass/Vol]3.6 g/dLNormal 3.4-5.0[facility] on above:Performed By: #### CVDTBH #### [facility] [address] [place] [address] Dr. David MaganaAlbumin/Globulin [Mass ratio]1.1 {ratio}NormalThe [facility] on above:Performed By: #### CVDTBH #### [facility] [address] [place] [address] Dr. David MaganaALP [Catalytic activity/Vol]67 U/KRjjjzd68-881Qgq [facility] HospitalComment on above:Performed By: #### CVDTBH #### [facility] [address] [place] [address] [address] David HartT [Catalytic activity/Vol]33 U/UOxqtxk88-21Fvt [facility] HospitalComment on above:Performed By: #### CVDTBH #### [facility] [address] [place] [address] Dr. David MaganaAnion gap [Moles/Vol]23.5 mmol/LNormalThe [facility] Comment on above:Performed By: #### CVDTBH #### [facility] [address] [place] [address] Dr. David MaganaAST [Catalytic activity/Vol]13 U/LCritically rke58-45Sgp [facility] HospitalComment on above:Performed By: #### CVDTBH #### [facility] [address] [place] [address] Dr. David MaganaBilirubin [Mass/Vol]0.6 mg/dLNormal0.2-1.0The [facility] Comment on above:Performed By: #### CVDTBH #### [facility] [address] [place] [address] Dr. David MaganaCalcium [Mass/Vol]8.4 mg/dLCritically low8.5-10.1The [facility] HospitalComment on above:Performed By: #### CVDTBH #### [facility] [address] [place] [address] Dr. David MaganaChloride [Moles/Vol]93 mmol/LCritically paa53-449Prg [facility] HospitalComment on above:Performed By: #### CVDTBH #### [facility] [address] [place] [address] Dr. David MaganaCO2 [Moles/Vol]17.9 mmol/LCritically low21.0-32.0The [facility] HospitalComment on above:Performed By: #### CVDTBH #### [facility] [address] [place] [address] Dr. Yilan ChangCreatinine [Mass/Vol]2.15 mg/dLCritically high0.70-1.30The [facility] HospitalComment on above:Performed By: #### CVDTBH #### [facility] [address] [place] [address] Dr. David EvansGFR-AF YBJKRVLG59 mL/min/1.57n4Nxvgbfchlq low>=60The [facility] HospitalComment on above:Performed By: #### CVDTBH #### [facility] [address] [address] [address] David EvansGFR-NON AF FBBTZQBB82 mL/min/1.64t7Edlaegnmlt low>=60The [facility] HospitalComment on above:Performed By: #### CVDTBH #### [facility] [address] [place] [address] Dr. David MaganaGlobulin (S) [Mass/Vol]3.2 g/dLNormalThe [facility] HospitalComment on above:Performed By: #### CVDTBH #### [facility] [address] [place] [address] Dr. David MaganaGlucose [Mass/Vol]345 mg/dLCritically pqtb62-673Sqw [facility] HospitalComment on above:Performed By: #### CVDTBH #### [facility] [address] [place] [address] Dr. David MaganaPotassium [Moles/Vol]5.4 mmol/LCritically high3.5-5.1The [facility] HospitalComment on above:Performed By: #### CVDTBH #### [facility] [address] [place] [address] Dr. David MaganaPerformed By: #### K #### [facility] [address] [place] [address] Dr. David MaganaProtein [Mass/Vol]6.8 g/dLNormal6.4-8.2The [facility] Comment on above:Performed By: #### CVDTBH #### [facility] [address] [place] [address] Dr. David MaganaSodium [Moles/Vol]129 mmol/LCritically nwo209-006Dtp [facility] HospitalComment on above:Performed By: #### CVDTBH #### [facility] [address] [address] [address] David Gomez nitrogen [Mass/Vol]65.0 mg/dLCritically high7.0-18.0[facility] HospitalComment on above:Performed By: #### CVDTBH #### [facility] [address] [address] [address] David Gomez nitrogen/Creatinine [Mass ratio]30.2 mg/mgNormalThe [facility] HospitalComment on above:Performed By: #### CVDTBH #### [facility] [address] [place] [address] Dr. David Guerin RANDOM W/MICROSCOPICon [id number] SEENNormalNONE SEENCleveland Clinic Lutheran HospitalComment on above:Performed By: #### MG, BMP, PHOS #### [facility] [address] [address] [address] David Rawls Ql (U)NegativeNormalNEGATIVECleveland Clinic Lutheran Hospital Comment on above:Performed By: #### MG, BMP, PHOS #### [facility] [address] [place] [address] Dr. David Haney SEENNormalNONE SEENCleveland Clinic Lutheran HospitalComment on above:Performed By: #### MG, BMP, PHOS #### [facility] [address] [place] [address] Dr. David Wolf (U)CLEARNormalCLEARCleveland Clinic Lutheran HospitalComment on above: Performed By: #### MG, BMP, PHOS #### [facility] [address] [address] [address] David Briceño (U)LT. YELLOWNormalYELLOWCleveland Clinic Lutheran HospitalComment on above:Performed By: #### MG, BMP, PHOS #### [facility] [address] [place] [address] Dr. David Chauhan LM Nom (Urine sed)NONE SEENNormalNONE SEENThe [facility]to HospitalComment on above:Performed By: #### MG, BMP, PHOS #### [facility] [address] [address] [address] David Evanspithelial cells LM Ql (Urine sed)RARENormalNONE SEEN /RARECleveland Clinic Lutheran HospitalComment on above:Performed By: #### MG, BMP, PHOS #### [facility] [address] [address] [address] David MaganaGlucose Ql (U)1000 mg/dlAbnormalNEGATIVECleveland Clinic Lutheran Hospital Comment on above:Performed By: #### MG, BMP, PHOS #### [facility] [address] [place] [address] Dr. David MaganaHemoglobin Ql (U)NegativeNormalNEGCity Hospital Comment on above:Performed By: #### MG, BMP, PHOS #### [facility] [address] [place] [address] Dr. David MaganaKetones Ql (U)15 mg/dlAbnormalNEGCity Hospital Comment on above:Performed By: #### MG, BMP, PHOS #### [facility] [address] [place] [address] Dr. David MaganaLEUKOCYTESNegativeNoalNEGCity HospitalComment on above:Performed By: #### MG, BMP, PHOS #### [facility] [address] [place] [address] Dr. David MaganaMUCOUSNONE SEENNormalNONE SEENCleveland Clinic Lutheran HospitalComment on above:Performed By: #### MG, BMP, PHOS #### [facility] [address] [place] [address] Dr. David MaganaNitrite Ql (U)NegativeNormalNEGATIVECleveland Clinic Lutheran HospitalComment on above:Performed By: #### MG, BMP, PHOS #### [facility] [address] [place] [address] Dr. David MaganapH (U)5.5 [pH]Normal5-9The [facility] HospitalComment on above: Performed By: #### MG, BMP, PHOS #### [facility] [address] [place] [address] [address] David MaganaRBCNJODI SEENAbnormal0-2The [facility] HospitalComment on above: Performed By: #### MG, BMP, PHOS #### [facility] [address] [place] [address] Dr. David MaganaSPEC GRAVITY<=1.172Zjwzxzrf0.005-<=1.025The [facility] Comment on above:Performed By: #### MG, BMP, PHOS #### [facility] [address] [place] [address] Dr. David MaganaUA PROTEINNegativeNormalNEGATIVE/ TRACEThe [facility] Comment on above:Performed By: #### MG, BMP, PHOS #### [facility] [address] [place] [address] Dr. David Barnesbilino Qn (U)0.2 {Dionna'U}/dLNormal0.2 - 1.0The [facility] HospitalComment on above:Performed By: #### MG, BMP, PHOS #### [facility] [address] [place] [address] Dr. David Nickerson SEENNormalNONE SEENCleveland Clinic Lutheran HospitalComment on above: Performed By: #### MG, BMP, PHOS #### [facility] [address] [place] [address] Dr. David MaganaXR CHEST 1 Von [id number] CHEST 1 VEXAM: XR CHEST 1 V [...] Electronically authenticated by: Yefri DWYER Date: 2022-07-18 00:09NormalThe Alberto HospitalCARDIAC BARRIE ADMITon 80-22-0056FM [Catalytic activity/Vol]61 U/WCukvzq37-799Hfk [facility] HospitalComment on above:Performed By: #### CBC #### [facility] [address] [place] [address] Dr. David Vazquez.MB [Mass/Vol]1.84 ng/mLNormal<=3.60[facility] Comment on above:Performed By: #### CBC #### [facility] [address] [place] [address] Dr. David DacostaTROP9.4 pg/mLNormal4.0-76.1The [facility] HospitalComment on above:Result Comment: CUT-OFF POINTS HAVE BEEN ESTABLISHED BASED ON THE FOURTH UNIVERSAL DEFINITIONS OF MYOCARDIAL INFARCTION. THE UPPER REFERENCE LIMIT (URL) OF TROPONIN, DEFINED THE 99TH PERCENTILE OF cTnI DISTRIBUTION IN A REFERENCE POPULATION, HAS BEEN CONFIRMED THE DECISION THRESHOLD FOR DC DIAGNOSIS.Performed By: #### CBC #### [facility] [address] [place] [address] Dr. David FioreO533 ng/mLCritically iwer40-03Hwm [facility] HospitalComment on above:Performed By: #### CBC #### [facility] [address] [place] [address] Dr. David Frazier AUTO DIFFon [id number] #0.0 103/ulNormal0.0-0.1The [facility] HospitalComment on above:Performed By: #### MG, BMP, PHOS #### [facility] [address] [place] [address] Dr. David MaganaBasophils/100 WBC (Bld)0.2 %Normal0.2-2.0[facility] Comment on above:Performed By: #### MG, BMP, PHOS #### [facility] [address] [place] [address] Dr. David Colorado #0.0 103/ulNormal0.0-0.7The [facility] HospitalComment on above: Performed By: #### MG, BMP, PHOS #### [facility] [address] [place] [address] Dr. David Evansosinophils/100 WBC (Bld)0.1 %Critically low0.9-7.0The [facility] HospitalComment on above:Performed By: #### MG, BMP, PHOS #### [facility] [address] [place] [address] Dr. David Evansrythrocyte distribution width (RBC) [Ratio]13.2 %Rjxvxf76.0-15.0 The [facility] HospitalComment on above:Performed By: #### MG, BMP, PHOS #### [facility] [address] [place] [address] Dr. David MaganaHematocrit (Bld) [Volume fraction]43.1 %Mamoam35.0-54.0The [facility] HospitalComment on above:Performed By: #### MG, BMP, PHOS #### [facility] [address] [place] [address] Dr. David MaganaHemoglobin (Bld) [Mass/Vol]14.5 g/fWDjyyvj40.0-18.0The [facility] HospitalComment on above:Performed By: #### MG, BMP, PHOS #### [facility] [address] [place] [address] Dr. David Gerardo #0.14 10e3/ulCritically high0.00-0.03[facility] Comment on above:Performed By: #### MG, BMP, PHOS #### [facility] [address] [place] [address] Dr. David Gerardo %1.2 %Critically high0.0-0.5The [facility] Hospitalment on above:Performed By: #### MG, BMP, PHOS #### [facility] [address] [place] [address] Dr. David Patiño #0.4 103/ulCritically low1.2-3.8The [facility] Comment on above:Performed By: #### MG, BMP, PHOS #### [facility] [address] [place] [address] Dr. Yilan ChangLymphocytes/100 WBC (Bld)3.4 %Critically low20.5-60.0The [facility] HospitalComment on above:Performed By: #### MG, BMP, PHOS #### [facility] [address] [place] [address] Dr. David Beasley DIFF REQNONormalThe [facility] HospitalComment on above: Performed By: #### MG, BMP, PHOS #### [facility] [address] [place] [address] Dr. David Faulkner (RBC) [Entitic mass]33.3 woBlqhka55.9-34.0The [facility] HospitalComment on above:Performed By: #### MG, BMP, PHOS #### [facility] [address] [place] [address] Dr. David Faulkner (RBC) [Mass/Vol]33.6 g/aVVaradt21.9-35.2The [facility] HospitalComment on above:Performed By: #### MG, BMP, PHOS #### [facility] [address] [place] [address] Dr. David Topete (RBC) [Entitic vol]98.9 fLCritically high80.0-94.0The [facility] HospitalComment on above:Performed By: #### MG, BMP, PHOS #### [facility] [address] [place] [address] Dr. David Santos #1.1 103/ulCritically high0.3-0.8The [facility] Comment on above:Performed By: #### MG, BMP, PHOS #### [facility] [address] [place] [address] Dr. David Dickensocytes/100 WBC (Bld)8.9 %Normal1.7-12.0The [facility] Comment on above:Performed By: #### MG, BMP, PHOS #### [facility] [address] [place] [address] Dr. David Hartley #10.3 103/ulCritically high1.4-6.5The [facility] Comment on above:Performed By: #### MG, BMP, PHOS #### [facility] [address] [place] [address] Dr. David Sargentutrophils/100 WBC (Bld)86.2 %Critically high43.0-75.0The [facility] HospitalComment on above:Performed By: #### MG, BMP, PHOS #### [facility] [address] [place] [address] Dr. David MaganaPlatelet mean volume (Bld) [Entitic vol]11.1 fLNormal9.5-13.5The [facility] HospitalComment on above:Performed By: #### MG, BMP, PHOS #### [facility] [address] [place] [address] Dr. David MaganaPLT229 103/ceGjxgaq241-129Sbz [facility] HospitalComment on above: Performed By: #### MG, BMP, PHOS #### [facility] [address] [place] [address] Dr. David MaganaRBC4.36 106/ulCritically low4.70-6.10The [facility] HospitalComment on above:Performed By: #### MG, BMP, PHOS #### [facility] [address] [place] [address] Dr. David MaganaWBC11.9 103/ulCritically high4.0-11.0The [facility] HospitalComment on above:Performed By: #### MG, BMP, PHOS #### [facility] [address] [place] [address] Dr. David MaganaPROF CHEM 8 (BAS METB)on 43-86-4245[place] gap [Moles/Vol]26.5 mmol/LNormalThe [facility] HospitalComment on above:Performed By: #### CBC #### [facility] [address] [place] [address] Dr. David MaganaCalcium [Mass/Vol]8.2 mg/dLCritically low8.5-10.1The [facility] HospitalComment on above:Performed By: #### CBC #### [facility] [address] [address] [address] David MaganaChloride [Moles/Vol]89 mmol/LCritically bhb99-243Rkz [facility] on above:Performed By: #### CBC #### [facility] [address] [address] [address] David MaganaCO2 [Moles/Vol]14.5 mmol/LCritically low21.0-32.0The [facility] HospitalComment on above:Performed By: #### CBC #### [facility] [address] [address] [address] David MaganaCreatinine [Mass/Vol]2.78 mg/dLCritically high0.70-1.30The [facility] on above:Performed By: #### CBC #### [facility] [address] [place] [address] Dr. Hernandez ChangEGFR-AF IQQLLABB12 mL/min/1.80k7Azvdppcrgg low>=60The [facility] HospitalComment on above:Performed By: #### CBC #### [facility] [address] [place] [address] Dr. David EvansGFR-NON AF IVBGMCMB60 mL/min/1.78t0Tnbpawxnvm low>=60The [facility] HospitalCombeaumont hospital on above:Performed By: #### CBC #### [facility] [address] [place] [address] Dr. David MaganaGlucose [Mass/Vol]442 mg/dLCritically qthq50-543Gbn [facility] on above:Performed By: #### CBC #### [facility] [address] [place] [address] Dr. David MaganaPotassium [Moles/Vol]6.0 mmol/LCritically high3.5-5.1The [facility] on above:Performed By: #### CBC #### [facility] [address] [place] [address] Dr. David MaganaSodium [Moles/Vol]124 mmol/LCritically vwd945-018Igf [facility] Hospitalment on above:Performed By: #### CBC #### [facility] [address] [place], [place] [address] Dr. David MaganaUrea nitrogen [Mass/Vol]73.0 mg/dLCritically high7.0-18.0The [facility] HospitalComment on above:Performed By: #### CBC #### [facility] [address], [place] [address] Dr. David MaganaUrea nitrogen/Creatinine [Mass ratio]26.3 mg/mgNormalThe [facility] HospitalComment on above:Performed By: #### CBC #### [facility] [address], [place] [address] Dr. David MaganaCovid-19 PCR ([facility])on 18-98-4944AFXK-CoV-2 (COVID-19) RNA SULTANA+probe Ql (Unsp spec)DetectedCritically abnormalNOT DETECTEDThe [facility] on above:Result Comment: This test is not yet approved or cleared by the [place] FDA. When there are no FDA-approved or cleared tests available, and other criteria are met, FDA can make tests available under an emergency access mechanism called an Emergency Use Authorization (EUA). The EUA for this test is supported by the [place] of Health and Human Service's (HHS's) declaration [...] Performed By: #### MG, BMP, PHOS #### [facility] [id number] David PuriDIMarcus M/2D COMPLETEon [id number] M/2D COMPLETE Patient: NADIR BETH Exam Date: 07/01/2022 : 1940 Gender:M Ordering : DR CLARIBEL CISNEROS M.D. Admission #: [id number] Family : DR VAN YOUSSEF . Order #: [id number] CLICK HERE TO VIEW EXAM ECHOCARDIOGRAM REPORT [...] by: Rohini Traylor M.D. on 07/01/2022 at 16:27NoUniversity Hospitals Geauga Medical CenterCovid-19 PCR ([facility])on 62-02-8687UGOG-CoV-2 (COVID-19) RNA SULTANA+probe Ql (Unsp spec)Not detectedNormalNOT DETECTEDThe [facility] HospitalComment on above: Result Comment: When diagnostic [...] for this test is supported by the [place] of Health and Human Service's declaration that [...] longer be used).Performed By: #### CVDTBH #### [facility] [address] [place] [address] Dr. David MaganaCREATININE URINEon 17-66-2689RLIVT CREAT14.70 mg/dLCritically low 20.00-300.00The [facility] HospitalComment on above:Performed By: #### MG BMP, PHOS #### [facility] [address] [place] [address] Dr. David MaganaGLYCOHEMOGLOBIN A1Con 18-60-2200MBT RECOMMENDATIONSEE BELOWNormal The [facility] HospitalComment on above:Result Comment: ADA RECOMMENDED LIMIT 4.0 - 6.0 ADA THERAPEUTIC TARGET < 7.0 ACTION SUGGESTED > 7.0Performed By: #### A1C #### [facility] [address] [place] [address] Dr. David MaganaGlucose [Mass/Vol]209 mg/dLNormalThe [facility] HospitalComment on above:Performed By: #### A1C #### [facility] [address] [place] [address] Dr. David MaganaHbA1c (Bld) [Mass fraction]8.9 %Critically high4.5-6.2The [facility] HospitalComment on above:Performed By: #### A1C #### [facility] [address] [place] [address] Dr. David MaganaMAGNESIUMon 88-17-0571Nibgbveoh [Mass/Vol]2.3 mg/dLNormal1.8-2.4 The [facility] HospitalComment on above:Performed By: #### MG, BMP, PHOS #### [facility] [address] [place] [address] Dr. David MaganaPHOSPHORUSon 09-42-5975Jxbjykbqo [Mass/Vol]3.5 mg/dLNormal2.6-4.7 The [facility] HospitalComment on above:Performed By: #### MG, BMP, PHOS #### [facility] [address] [place] [address] Dr. David RaygozaF CHEM 8 (BAS METB)on 98-69-2944Ulqqq gap [Moles/Vol]10.6 mmol/LNormalThe [facility] HospitalComment on above:Performed By: #### MG, BMP, PHOS #### [facility] [address] [place] [address] Dr. David MaganaCalcium [Mass/Vol]9.2 mg/dLNormal8.5-10.1The [facility] Comment on above:Performed By: #### MG, BMP, PHOS #### [facility] [address] [place] [address] Dr. David MaganaChloride [Moles/Vol]102 mmol/TUmkbfz76-922Pwi [facility] Comment on above:Performed By: #### MG, BMP, PHOS #### [facility] [address] [place] [address] Dr. David MaganaCO2 [Moles/Vol]30.1 mmol/CRqqfal83.0-32.0The [facility] Comment on above:Performed By: #### MG, BMP, PHOS #### [facility] [address] [place] [address] Dr. David MaganaCreatinine [Mass/Vol]1.70 mg/dLCritically high0.70-1.30The [facility] HospitalComment on above:Performed By: #### MG, BMP, PHOS #### [facility] [address] [place] [address] Dr. Hernandez ChangEGFR-AF RQZWVVOW67 mL/min/1.16c9Lzrhfgzbyf low>=60The [facility] HospitalComment on above:Performed By: #### MG, BMP, PHOS #### [facility] [address] [place] [address] Dr. David EvansGFR-NON AF MTIPQVJX57 mL/min/1.95o3Kdtnhezuoq low>=60The [facility] HospitalComment on above:Performed By: #### MG, BMP, PHOS #### [facility] [address] [address] [address] David MaganaGlucose [Mass/Vol]197 mg/dLCritically hczx95-179Nlg [facility] HospitalComment on above:Performed By: #### MG, BMP, PHOS #### [facility] [address] [address] [address] David MaganaPotassium [Moles/Vol]4.7 mmol/LNormal3.5-5.1The [facility] Comment on above:Performed By: #### MG, BMP, PHOS #### [facility] [address] [address] [address] David MaganaSodium [Moles/Vol]138 mmol/XSdvgiu218-080Acj [facility] Comment on above:Performed By: #### MG, BMP, PHOS #### [facility] [address] [place] [address] Dr. David MaganaUrea nitrogen [Mass/Vol]25.0 mg/dLCritically high7.0-18.0The [facility] HospitalComment on above:Performed By: #### MG, BMP, PHOS #### [facility] [address] [address] [address] David Gomez nitrogen/Creatinine [Mass ratio]14.7 mg/mgNormalThe [facility] HospitalComment on above:Performed By: #### MG, BMP, PHOS #### [facility] [address] [place] [address] Dr. David MaganaPROTEIN RAND URINEon 67-70-4413UY PROT<5.0Normal<=11.9The [facility] HospitalComment on above:Performed By: #### CREAU, PROTU #### [facility] [address] [place] [address] Dr. David MaganaBILIRUBIN CONJUGATED (DIRECT)on [id number], CONJUGATED0.1 mg/dLNormal0.0-0.2The [facility] HospitalComment on above:Performed By: #### POCGLUC #### [facility] [address] [place] [address] Dr. David Frazier AUTO DIFFon [id number] #0.1 103/ulNormal0.0-0.1The [facility] HospitalComment on above:Performed By: #### CVDTBH #### [facility] [address] [place] [address] Dr. David MaganaBasophils/100 WBC (Bld)0.7 %Normal0.2-2.0The [facility] Comment on above:Performed By: #### CVDTBH #### [facility] [address] [place] [address] Dr. David Colorado #0.5 103/ulNormal0.0-0.7The [facility] HospitalComment on above: Performed By: #### CVDTBH #### [facility] [address] [place] [address] Dr. David Evansosinophils/100 WBC (Bld)6.7 %Normal0.9-7.0The [facility] Comment on above:Performed By: #### CVDTBH #### [facility] [address] [place] [address] Dr. David Evansrythrocyte distribution width (RBC) [Ratio]13.6 %Nxcxxu49.0-15.0 The [facility] HospitalComment on above:Performed By: #### CVDTBH #### [facility] [address] [place] [address] Dr. David MaganaHematocrit (Bld) [Volume fraction]45.9 %Mgjugt86.0-54.0The [facility] HospitalComment on above:Performed By: #### CVDTBH #### [facility] [address] [place] [address] Dr. David MaganaHemoglobin (Bld) [Mass/Vol]14.9 g/zMPjqecr01.0-18.0The [facility] HospitalComment on above:Performed By: #### CVDTBH #### [facility] [address] [place] [address] Dr. David Gerardo #0.03 10e3/ulNormal0.00-0.03The [facility] HospitalComment on above:Performed By: #### CVDTBH #### [facility] [address] [place] [address] Dr. David Gerardo %0.4 %Normal0.0-0.5The [facility] HospitalComment on above: Performed By: #### CVDTBH #### [facility] [address] [place] [address] Dr. David Soto #1.0 103/ulCritically low1.2-3.8The [facility] Comment on above:Performed By: #### CVDTBH #### [facility] [address] [place] [address] Dr. David Sotohocytes/100 WBC (Bld)13.4 %Critically low20.5-60.0The [facility] HospitalComment on above:Performed By: #### CVDTBH #### [facility] [address] [place] [address] Dr. David Beasley DIFF REQNONormalThe [facility] HospitalComment on above: Performed By: #### CVDTBH #### [facility] [address] [place] [address] Dr. David Torres (RBC) [Entitic mass]33.8 alPdcpqp05.9-34.0The [facility] HospitalComment on above:Performed By: #### CVDTBH #### [facility] [address] [place] [address] Dr. David Faulkner (RBC) [Mass/Vol]32.5 g/qUJsmrgs97.9-35.2The [facility] HospitalComment on above:Performed By: #### CVDTBH #### [facility] [address] [place] [address] Dr. David Topete (RBC) [Entitic vol]104.1 fLCritically high80.0-94.0The [facility] HospitalComment on above:Performed By: #### CVDTBH #### [facility] [address] [place] [address] Dr. David Santos #0.8 103/ulNormal0.3-0.8The [facility] HospitalComment on above:Performed By: #### CVDTBH #### [facility] [address] [place] [address] Dr. David Dickensocytes/100 WBC (Bld)10.2 %Normal1.7-12.0The [facility] Comment on above:Performed By: #### CVDTBH #### [facility] [address] [place] [address] Dr. David Hartley #5.1 103/ulNormal1.4-6.5The [facility] HospitalComment on above:Performed By: #### CVDTBH #### [facility] [address] [place] [address] Dr. David Sargentutrophils/100 WBC (Bld)68.6 %Eelkil39.0-75.0The [facility] HospitalComment on above:Performed By: #### CVDTBH #### [facility] [address] [place] [address] Dr. David Ortegalet mean volume (Bld) [Entitic vol]11.3 fLNormal9.5-13.5The [facility] HospitalComment on above:Performed By: #### CVDTBH #### [facility] [address] [place] [address] Dr. David MaganaPLT185 103/rfWuqbcd801-694Sgv [facility] HospitalComment on above: Performed By: #### CVDTBH #### [facility] [address] [place] [address] Dr. David MaganaRBC4.41 106/ulCritically low4.70-6.10The [facility] HospitalComment on above:Performed By: #### CVDTBH #### [facility] [address] [place] [address] Dr. David MaganaWBC7.5 103/ulNormal4.0-11.0The [facility] HospitalComment on above: Performed By: #### CVDTBH #### [facility] [address] [address] [address] David Neal T3on 14-81-0773LZBO T32.17 pg/mlLCritically low2.18-3.98[facility] HospitalComment on above:Performed By: #### POCGLUC #### [facility] [address] [place] [address] Dr. David Montelongo PROFILEon 45-43-3957XKXK-HDL RATIO NORMSEE BELOWThe Surgical Hospital at SouthwoodsComment on above:Result Comment: 3.3 - 4.4 LOW RISK 4.4 - 7.1 AVERAGE RISK 7.1 - 11.0 MODERATE RISK >11.0 HIGH RISKPerformed By: #### POCGLUC #### [facility] [address] [place] [address] Dr. David Merinoesterol [Mass/Vol]234 mg/dLCritically high<=200The [facility] HospitalComment on above:Performed By: #### POCGLUC #### [facility] [address] [place] [address] Dr. David Merinoesterol in HDL [Mass/Vol]58 mg/uFXeqrup13-47Mbi [facility] HospitalCombeaumont hospital on above:Performed By: #### POCGLUC #### [facility] [address] [place] [address] Dr. David Merinoesterol in LDL [Mass/Vol]129.0 mg/dLThe [facility] Hospital [facility] SouthwoodsCombeaumont hospital on above:Performed By: #### POCGLUC #### [facility] [address] [place] [address] Dr. David Casey.total/Cholesterol in HDL [Mass ratio]4.0 {ratio} NormalThe [facility] HospitalCombeaumont hospital on above:Performed By: #### POCGLUC #### [facility] [address] [place] [address] Dr. David Dee NORMAL> or = 60 mg/dl - LOW CARDIOVASCULAR RISK <40 mg/dl - HIGH CARDIOVASCULAR RISKThe Surgical Hospital at SouthwoodsComment on above:Performed By: #### POCGLUC #### [facility] [address] [place] [address] Dr. David Kebede CALC NORMALSEE BELOWNoUniversity Hospitals Geauga Medical CenterComment on above:Result Comment: <100 mg/dl OPTIMAL 100 - 129 mg/dl NEAR OR ABOVE OPTIMAL 130 - 159 mg/dl BORDERLINE HIGH 160 - 189 mg/dl HIGH >190 mg/dl VERY HIGH Performed By: #### POCGLUC #### [facility] [address] [address] [address] David MaganaTriglyceride [Mass/Vol]235 mg/dLCritically high<=150The [facility] HospitalComment on above:Performed By: #### POCGLUC #### [facility] [address] [address] [address] David MaganaVLDL CALC47.0 mg/dLNoUniversity Hospitals Geauga Medical CenterComment on above: Performed By: #### POCGLUC #### [facility] [address] [address] [address] David MaganaPROF 14(COMP METB)on 12-43-2810Xwaxszi [Mass/Vol]3.2 g/dL Critically low3.4-5.0The [facility] HospitalComment on above:Performed By: #### POCGLUC #### [facility] [address] [address] [address] David MaganaAlbumin/Globulin [Mass ratio]0.9 {ratio}NormalThe [facility] HospitalComment on above:Performed By: #### POCGLUC #### [facility] [address] [address] [address] David Oates [Catalytic activity/Vol]77 U/UUgovkf03-853Dln [facility] HospitalComment on above:Performed By: #### POCGLUC #### [facility] [address] [address] [address] David Ag [Catalytic activity/Vol]24 U/JGrczuq44-47Cce [facility] HospitalComment on above:Performed By: #### POCGLUC #### [facility] [address] [address] [address] David Camargo gap [Moles/Vol]13.1 mmol/LNormalThe [facility] Comment on above:Performed By: #### POCGLUC #### [facility] [address] [address] [address] David MaganaAST [Catalytic activity/Vol]13 U/LCritically tvv72-18Ppk [facility] HospitalComment on above:Performed By: #### POCGLUC #### [facility] [address] [address] [address] David MaganaBilirubin [Mass/Vol]0.3 mg/dLNormal0.2-1.0[facility] Comment on above:Performed By: #### POCGLUC #### [facility] [address] [address] [address] David MaganaCalcium [Mass/Vol]8.8 mg/dLNormal8.5-10.1[facility] Comment on above:Performed By: #### POCGLUC #### [facility] [address] [address] [address] David MaganaChloride [Moles/Vol]106 mmol/DVsdscn41-593Kuu [facility] Comment on above:Performed By: #### POCGLUC #### [facility] [address] [address] [address] David MaganaCO2 [Moles/Vol]27.5 mmol/DNsnxey97.0-32.0[facility] Comment on above:Performed By: #### POCGLUC #### [facility] [address] [address] [address] David MaganaCreatinine [Mass/Vol]1.62 mg/dLCritically high0.70-1.30The [facility] HospitalComment on above:Performed By: #### POCGLUC #### [facility] [address] [address] [address] Hernandez ChangEGFR-AF MHYZLNZR24 mL/min/1.96r8Oaxrglsdlk low>=60The [facility] HospitalComment on above:Performed By: #### POCGLUC #### [facility] [address] [address] [address] David EvansGFR-NON AF PYBLGPSA51 mL/min/1.07c1Phgcdvjawv low>=60The [facility] HospitalComment on above:Performed By: #### POCGLUC #### [facility] [address] [address] [address] David MaganaGlobulin (S) [Mass/Vol]3.4 g/dLNoUniversity Hospitals Geauga Medical CenterComment on above:Performed By: #### POCGLUC #### [facility] [address] [address] [address] David MaganaGlucose [Mass/Vol]206 mg/dLCritically xczt15-372Zgw [facility] HospitalComment on above:Performed By: #### POCGLUC #### [facility] [address] [place] [address] Dr. David MaganaPotassium [Moles/Vol]4.6 mmol/LNormal3.5-5.1The [facility] Comment on above:Performed By: #### POCGLUC #### [facility] [address] [place] [address] Dr. David MaganaProtein [Mass/Vol]6.6 g/dLNormal6.4-8.2[facility] Comment on above:Performed By: #### POCGLUC #### [facility] [address] [place] [address] Dr. David MaganaSodium [Moles/Vol]142 mmol/ZLakmvl290-372JfhCleveland Clinic Lutheran Hospital Comment on above:Performed By: #### POCGLUC #### [facility] [address] [place] [address] Dr. David MaganaUrea nitrogen [Mass/Vol]26.0 mg/dLCritically high7.0-18.0The [facility] HospitalComment on above:Performed By: #### POCGLUC #### [facility] [address] [place] [address] Dr. David Gomez nitrogen/Creatinine [Mass ratio]16.0 mg/mgNoalThMercy Health St. Joseph Warren HospitalComment on above:Performed By: #### POCGLUC #### [facility] [address] [place] [address] Dr. David Montes4on 71-89-7623W7 [Mass/Vol]7.70 ug/dLNormal4.50-12.10The [facility] HospitalComment on above:Performed By: #### POCGLUC #### [facility] [address] [place] [address] Dr. David Swanson 94-42-7373GKM1.187 uIU/mLNormal0.358-3.740[facility] HospitalComment on above:Performed By: #### POCGLUC #### [facility] [address] [place] [address] Dr. David SaundersMercy Health Defiance HospitalComment on above: Result Comment: <0.34 UIU/ml HYPERTHYROID 0.34-5.60 UIU/ml EUTHYROID >5.60 UIU/ml HYPOTHYROIDPerformed By: #### POCGLUC #### [facility] [address] [place] [address] Dr. David Magana Vital Signs Date TimeVital SignValuePerforming CclyfxqjsQjqvbqnw68-53-5735 10:36-0400Body hqtgce714.7 cmBarrie Montoya MD Work Phone: [phone] HealthcareKyrqrelcvv54-13-5630 10:36-0400Body mass index (BMI) [Ratio]27.22 kg/m2Barrie Montoya MD Work Phone: [facility] HealthcarePxwfacichu64-26-0710 10:36-0400Body qkbhma86.19 kgBarrie Montoya MD Work Phone: [facility] HealthcareZvncbpnbqm71-94-0745 11:28-0400Body prgxri806.9 cmBlaise Chicas DPM Work Phone: [facility] HealthcareKnchtwbpap51-28-7116 11:28-0400Body mass index (BMI) [Ratio]25.09 kg/j8CaeoxhwaBlaise Chicas DPM Work Phone: [facility] HealthcareXalrvkkkya95-66-1038 11:28-0400Body jnuoib46.92 kgBlaise Chicas DPM Work Phone: [address] [phone] 11:28-0400Respiratory rate16 /minNicholas Brown DPM Work Phone: [facility] HealthcareIdxurtyjyb84-89-2585 16:32-0400Body etehxl956.9 cmFetresa Herron SHOE PATTERNMAKER Work Phone: [facility] HealthcareQhjiqesnos60-96-2777 16:32-0400Body mass index (BMI) [Ratio]25.09 kg/r6Hgcyleatresa Ochoagel SHOE PATTERNMAKER Work Phone: [facility] HealthcareHrinftjeyv55-43-5144 16:32-0400Body uyfmjn91.92 kgFetresa Ochoagel SHOE PATTERNMAKER Work Phone: [facility] HealthcareYqpvkubcuw99-61-4827 11:05-0400Body akihqn692.9 cmNicholas Brown DPM Work Phone: [facility] HealthcareNlfgkjizdb83-56-1239 11:05-0400Body mass index (BMI) [Ratio]24.95 kg/b0Svdppbnh Brown DPM Work Phone: [phone] [place], [place] [address]Agyefxsaje54-32-3172 11:05-0400Body uzycdu00.46 kgNicholas Brown DPM Work Phone: [facility] HealthcareOhwlieutlw04-85-1375 11:05-0400Respiratory rate16 /minNicholas Brown DPM Work Phone: [facility] HealthcareUqqfmeonuv31-61-6750 12:58-0400Body zbqzia830.9 cmBarrie Montoya MD Work Phone: [facility] HealthcareQmtaeigztq84-05-3446 12:58-0400Body mass index (BMI) [Ratio]24.95 kg/m2Barrie Montoya MD Work Phone: [facility] HealthcareCweevbajaj41-20-7100 12:58-0400Body vsqija80.46 kgBarrie Montoya MD Work Phone: [phone] [place], [place] [address]Dfwnyadmfw28-64-9741 08:56-0400Body hlavcr304.9 cmNicholas Brown DPM Work Phone: [facility] HealthcareZlstpzbect04-86-6026 08:56-0400Body mass index (BMI) [Ratio]39.2 kg/m0Jzeovcfk Brown DPM Work Phone: [facility] HealthcareUvowfvwohz33-41-0107 08:56-0400Body eqwzkz329.09 kgNicholas Brown DPM Work Phone: [facility] HealthcareIfznvyinlt93-08-1702 08:56-0400Respiratory rate18 /minNicholgregg Brown DPM Work Phone: [phone]-[facility] HealthcareLqbqvayipx98-34-9627 08:44-0500Diastolic blood kozdckhp54 mm[Hg]MARQUIS NKANSAH-AMANKRA [facility]01-20-2025 08:44-0500Heart rate78 /minKSAWYERBENA NKANSAH-AMANKRA [facility]01-20-2025 08:44-0500Systolic blood iuyhmrmo355 mm[Hg]MARQUIS NKANSAH-AMANKRA [facility]01-16-2025 08:28-0500Body .9 cmNicholgregg Brown DPM Work Phone: [facility] HealthcareQsttomddkp77-10-5335 08:28-0500Body mass index (BMI) [Ratio]39.2 kg/o0Afeluzga Brown DPM Work Phone: [phone] [place], [place] [address]Meuzkmgxcc08-31-0065 08:28-0500Body wbycsx475.09 kgNicholas Brown DPM Work Phone: [phone]-[facility] HealthcareAdrgiimwuv57-66-9789 08:28-0500Respiratory rate16 /minNicumm Brown DPM Work Phone: [facility] HealthcareZhnctxxuqu08-01-8377 08:09-0500Blood Pressure LocationKWABENA NKANSAH-AMANKRA [facility] [place] 035202-19-2024 08:09-0500Diastolic blood ppgvjbgo89 mm[Hg]MARQUIS NKANSAH-AMANKRA [facility] [place] 913582-19-2024 08:09-0500Heart rate65 /minKMUNDO NKANSAH-AMANKRA [facility] [place] 913582-19-2024 08:09-0500Systolic blood xfhazscp294 mm[Hg]MARQUIS NKANSAH-AMANKRA [facility] [place] 913580-31-2024 08:19-0400Body twubmh226.9 cmBlaise Chicas DPM Work Phone: [facility] HealthcareNuidxovcap83-85-5377 08:19-0400Body mass index (BMI) [Ratio]39.2 kg/b6AkhtonooBlaise Chicas DPM Work Phone: [phone]-[facility] HealthcareCisnsrigvk08-60-2323 08:19-0400Body .09 kgBlaise Chicas DPM Work Phone: [place] [phone] 08:19-0400Diastolic blood marsnsii47 mm[Hg]Blaise Chicas DPM Work Phone: [facility] HealthcareLqunrqmiiu88-27-2242 08:19-0400Heart rate81 /min Blaise Chicas DPM Work Phone: [place] [phone] 08:19-0400Systolic blood bwunwbau842 mm[Hg]Blaise Chicas DPM Work Phone: [facility] HealthcareMargtqrscs74-91-8912 10:25-0400Blood Pressure LocationKMUNDO NKANSAH-AMANKRA [facility]09-24-2024 10:25-0400Diastolic blood mm[Hg]MARQUIS NKANSAH-AMANKRA [facility]09-24-2024 10:25-0400Systolic blood egtflfsw573 mm[Hg]MARQUIS LOUISE [facility]09-19-2024 08:45-0400Body mkaqwn282.9 cmBlaise Chicas DPM Work Phone: [place] [phone] 08:45-0400Body mass index (BMI) [Ratio]39.2 kg/y9HpigoyavBlaise Chicas DPM Work Phone: [place] [phone] 08:45-0400Body .09 kgBlaise Chicas DPM Work Phone: [place] [phone] 08:45-0400Diastolic blood pxpbzyci26 mm[Hg]Blaise Chicas DPM Work Phone: [place] [phone] 08:45-0400Heart rate75 /min Blaise Chicas DPM Work Phone: [place] [phone] 08:45-0400Respiratory rate18 /minBlaise Chicas DPM Work Phone: [place] [phone] 08:45-0400Systolic blood ikumjjaw277 mm[Hg]Blaise Chicas DPM Work Phone: [place] [phone] 11:24-0400Body ohuycu515.9 cmBarrie Montoya MD Work Phone: [place] [phone] 11:24-0400Body mass index (BMI) [Ratio]39.2 kg/m2Barrie Montoya MD Work Phone: [place] [phone] 11:24-0400Body tblysp651.09 kgBarrie Montoya MD Work Phone: [place] [phone] 11:24-0400Diastolic blood xgiofgkn93 mm[Hg]Barrie Montoya MD Work Phone: [facility] HealthcareGaxjqvtten16-47-3851 11:24-0400Heart rate73 /min Barrie Montoya MD Work Phone: [facility] HealthcareFpcubuogvg89-53-3686 11:24-0400Systolic blood rlfuxmwv335 mm[Hg]Barrie Montoya MD Work Phone: [facility] HealthcareSnuywymrcx63-93-3501 08:27-0400Body xtruhq066.9 cmBlaise Chicas DPM Work Phone: [place] [phone] 08:27-0400Body mass index (BMI) [Ratio]26.04 kg/h5WqijyatmBlaise Chicas DPM Work Phone: [facility] HealthcareKtsznaxcer21-43-8486 08:27-0400Body awhowo01.09 kgBlaise Chicas DPM Work Phone: [facility] HealthcareLmgzyzrrex83-76-8731 08:27-0400Diastolic blood mm[Hg]Blaise Chicas DPM Work Phone: [facility] HealthcareWygwlvqnqj48-59-5465 08:27-0400Heart rate75 /min Blaise Chicas DPM Work Phone: [facility] HealthcareClxqfayodb97-49-4704 08:27-0400Respiratory rate18 /minBlaise Chicas DPM Work Phone: [place] [phone] 08:27-0400Systolic blood bnhflilb889 mm[Hg]Blaise Chicas DPM Work Phone: [facility] HealthcareUodalbdtps68-94-2039 08:27-0400Body .9 cmBlaise Chicas DPM Work Phone: [facility] HealthcareSuffhbbwav67-79-0715 08:27-0400Body mass index (BMI) [Ratio]26.04 kg/n7WtbxslrcBlaise Chicas DPM Work Phone: [facility] HealthcareSoqmualgts41-52-2260 08:27-0400Body .09 kgBlaise Chicas DPM Work Phone: [facility] HealthcareRhtvdufnhb30-91-8131 08:27-0400Diastolic blood veokkzzs32 mm[Hg]Blaise Dao DPM Work Phone: [facility] HealthcareVzpztsuazl91-74-2479 08:27-0400Heart rate77 /min Blaise Chicas DPM Work Phone: [facility] HealthcareCizoqaofhd03-80-0049 08:27-0400Systolic blood ayqmnmzt692 mm[Hg]Blaise Dao DPM Work Phone: [facility] HealthcareUtpassndks63-26-7991 14:33-0500Diastolic blood owjcpbet66 mm[Hg]Nereyda Joyametz [phone]-Yhepe[address] [place], [place] [address]11-30-2023 14:33-0500Mean blood odawnbhp30 mm[Hg]Nereyda Joyametz [phone]-Ulksk[address] [place], [place] [address]11-30-2023 14:33-0500Systolic blood mfuuggcb456 mm[Hg]Nereyda Patricia [phone]-Ipdfc[address] [place], [place] [address]11-30-2023 14:18-0500Blood Pressure LocationBeth Patricia [phone]-Tqiuc[address] [place], [place] 6047511-30-2023 14:18-0500Body aazodopsxsa46.88 [degF]Nereyda Joyametz [phone]-Sgawx[address] [place], [place] 6047511-30-2023 14:18-0500Diastolic blood rnnwcddi17 mm[Hg]Nereyda Patricia 709-1879Fzulou-IavvuThomas Ville [address]-30-2023 14:18-0500Heart rate91 /minNereyda Joyametz [phone]-[facility]vfqgMem[facility]-30-2023 14:18-0500Systolic blood tleapejf714 mm[Hg]Nereyda Patricia 101-7430Uqtbzn-MdbrsThomas Ville [address]-17-2023 12:13-0500Diastolic blood mm[Hg]Nereyda Joyametz 392-9661Eazhxg-Uucbf[address] [place], [place] 6047511-17-2023 12:13-0500Mean blood mm[Hg]Nereyda Joyametz [phone]-Djoms[address] [place] [address]-17-2023 12:13-0500Systolic blood cyoedrga352 mm[Hg]Nereydasergio JoyaPatricia 175-1100Tjdtjh-Csyjm[address] [place] [address]-17-2023 12:10-0500Blood Pressure LocationBeth Patricia [phone]-Egiwr[address] [place] [address]-17-2023 12:10-0500Body iqzfjiapkkp89.42 [degF]Nereyda Joyametz [phone]-Qfpwa[address] [place] [address]-17-2023 12:10-0500Diastolic blood rhptijvi47 mm[Hg]Nereyda Joyametz 192-6173Yajudf-Jvcqu[address] [place] [address]-17-2023 12:10-0500Heart rate81 /minBeth Patricia 564-5995Btpfkr-Kdwes[address] [place] [address]-17-2023 12:10-0500Respiratory rate14 /minBeth Patricia 415-4911Bkeoem-Bfain[address] [place] [address]-17-2023 12:10-0500Systolic blood rdahmkhl425 mm[Hg]Nereydasergio JoyaPatricia 558-6027Wncoss-Wxsjy[address] [place], [place] 6047507-27-2023 10:43-0400Diastolic blood atxydqrb17 mm[Hg]Nereyda Patricia 655-3766Fdllfo-Xidcm[address] [place], [place] 6047507-27-2023 10:43-0400Heart rate76 /minBeth Patricia 594-6400Zacqqh-Mpdsx[address] [place], [place] 6047507-27-2023 10:43-0400Respiratory rate16 /minBeth Patricia 827-8448Csifmj-Zncbk[address] [place], [place] 6047507-27-2023 10:43-4514TtU9% (BldA) [Mass fraction]95 %Nereyda Joyametz [phone]-Qetxp[address] [place], [place] 6047507-27-2023 10:43-0400Systolic blood mm[Hg]Nereydasergio JoyaPatricia 000-0002Dwsjar-Ddrcd[address] [place], [place] 6047505-30-2023 14:19-0400Diastolic blood oxljmdqv53 mm[Hg]Nereyda Patricia 531-2792Hhnrpd-Nycsq[address] [place], [place] 6047505-30-2023 14:19-0400Mean blood dgnmwhil91 mm[Hg]Nereyda Patricia [phone]-Emqwl[address] [place], [place] 6047505-30-2023 14:19-0400Systolic blood njunsnxa154 mm[Hg]Nereyda Gomez 292-7751Sdqqnc-Bxldv[address] [place], [place] 6047505-30-2023 14:15-0400Blood Pressure LocationBeth Patricia 859-3398Liahcu-Aljqg[address] [place], [place] 6047505-30-2023 14:15-0400Body mzhpgnpilck69.7 [degF]Nereyda Patricia 821-6220Lyorfp-Mdqar[address] [place], [place] 6047505-30-2023 14:15-0400Diastolic blood xmdsdved24 mm[Hg]Nereyda Patricia 601-6435Yuxkgj-Yhttg[address] [place], [place] 6047505-30-2023 14:15-0400Heart rate70 /minBeth Patricia 996-8226Rdfpzk-Medch[address] [place], [place] 6047505-30-2023 14:15-0400Systolic blood lxugoqdy390 mm[Hg]Nereyda Patricia 679-8499Fswegr-NcufzMer[facility] Igvxcc63-53-8177 10:02-0400Body cqneurlzivx66.98 [degF]Nereyda Gomez 657-9793Ojbeee-AtjvfMercy Health [facility] 771599-10-3170 10:02-0400Diastolic blood opdrnfra85 mm[Hg] Nereyda Gomez 790-3970Xhlzem-NxwnrMercy Health [facility] 07-26-2022 10:02-0400Heart rate72 /minBeth Patricia 279-3131Vciwsj-TqkalMercy Health [facility] 525422-38-2343 10:02-3457PbK0% (BldA) [Mass fraction]97 % Nereyda Gomez 303-7268Ojgxmk-KfjwcMercy Health [facility] 611647-44-3040 10:02-0400Systolic blood aagcfvfz365 mm[Hg] Nereyda Gomez 044-6354Mtpylm-ZikxuMercy Health [facility] 998008-60-1658 11:30-0400Diastolic blood jkujqfpf500 mm[Hg] Bender SALAM [facility]06-27-2022 11:30-0400Heart rate86 /minMaher SALAM [facility]06-27-2022 11:30-0400 Respiratory rate15 /minMaher SALAM [facility]06-27-2022 11:30-3303ElM8% (BldA) [Mass fraction]95 %Bender SALAM [facility]06-27-2022 11:30-0400 Systolic blood drfdhdfy532 mm[Hg]Bender SALAM [facility]06-27-2022 11:15-0400 Diastolic blood nxdmwdon37 mm[Hg]Bender SALAM [facility]06-27-2022 11:15-0400Heart rate86 /minMaher SALAM [facility]06-27-2022 11:15-0400 Respiratory rate18 /minMaher SALAM [facility]06-27-2022 11:15-0664BhO7% (BldA) [Mass fraction]97 %Bender SALAM [facility]06-27-2022 11:15-0400 Systolic blood pkptdoxi071 mm[Hg]Bender SALAM [facility]06-27-2022 11:10-0400 Diastolic blood mm[Hg]Bender SALAM [facility]06-27-2022 11:10-0400Heart rate85 /minMaher SALAM [facility]06-27-2022 11:10-0400 Respiratory rate14 /minMaher SALAM [facility]06-27-2022 11:10-3912BeJ6% (BldA) [Mass fraction]97 %Bender SALAM [facility]06-27-2022 11:10-0400 Systolic blood xzgvepcy599 mm[Hg]Bender SALAM [facility]06-27-2022 11:02-0400Body hpxtcigxctc60.34 [degF]Bender SALAM [facility]06-27-2022 10:27-0400Blood Pressure LocationMaher SALAM [facility]06-27-2022 10:23-0400Blood Pressure LocationNapoleon NOVA [facility]06-27-2022 10:23-0400Body ewmpplimgwc94.24 [degF]Napoleon NOVA [facility]05-17-2022 09:53-0400Blood Pressure LocationNereyda Gomez 482-2197Rduhmg-TbubjMercy Health [facility] 05-17-2022 09:53-0400Body qnidocwsxyw71.7 [degF]Nereyda Gomez 748-9773Bsmivi-QyeudMercy Health [facility] Hospital [facility] 05-17-2022 09:53-0400Diastolic blood kunvjumo46 mm[Hg] Nereyda Gomez 449-0875Wkfpnk-JqlijMer[facility] Health [facility] 05-17-2022 09:53-0400Heart rate73 /minNereyda Gomez 651-4699Wadpmh-CgcfuMercy Health Lor[facility] Hospital [facility] 05-17-2022 09:53-4294CoP6% (BldA) [Mass fraction]96 % Nereyda Gomez 628-4116Ncbxms-IsgtfMercy Health Lor[facility] Hospital [facility] 05-17-2022 09:53-0400Systolic blood lgofocvm411 mm[Hg] Nereyda Gomez 451-6707Lnhwsg-ScuwnMercy Health Lor[facility] Health Encounters Encounter DateEncounter TypeCare ProviderFacilityStart: 33-67-4005uvfusqovwu MARQUIS NEELY-AMANKRAFacility:NAV NorwalkStart: 09-11-2025 End: 20-37-8382Efrtno davidheetRodney Joy MD Work Phone: noMS [facility]atologyStart: 09-11-2025 End: 83-60-4179Yspeef flowsheetRodney Joy MD Work Phone: noMS [facility]ermatologyStart: 09-11-2025 End: 53-21-8018Ioqnot outpatient visit 15 minutesEmviviane Joy MD Work Phone: [facility]usky DermatologyComment on above:Seborrheic keratosis (Primary Dx); Actinic keratosis; Lentigines; Neoplasm of unspecified behavior of bone, soft tissue, and skinStart: 09-11-2025 End: 94-29-3270onutqjrucwMJHKY A PETITTINot AvailableStart: 09-04-2025 End: 97-50-0376cudxojfmnlTexzqbt M Hoy-LAB [facility] HospStart: 09-04-2025 End: 86-47-6599Tlagbufl ReferredVan Fernandez MD-LAB [facility] Start: 08-22-2025 End: 21-56-1929Mlcxdjznj Duarte Nam [facility] Neurology 111 Start: 08-01-2025 End: 59-36-6137tpfznlshdvSQAOEBP [facility]burgtart: 07-30-2025 End: 76-74-0598ohumzhnrtpWTZS [facility] Centertart: 07-27-2025 End: 28-28-3140Lfpqdilissett Montoya MD Work Phone: noAD[facility] NEUROLOGYStart: 07-27-2025 End: 29-85-9684Obejlq Kemi Montoya MD Work Phone: noms NEUROLOGYStart: 07-27-2025 End: 45-42-0206oafnykpdkdGAKC D BEJNot AvailableStart: 07-27-2025 End: 12-50-2215Qoiqxy outpatient visit 25 minutesBarrie Montoya MD Work Phone: no[facility] [place] NeurologyComment on above: Tremor (Primary Dx); Neurogenic pain; Carotid stenosis, bilateral; Sequelae of cerebral infarction; JOSIAH (obstructive sleep apnea); B12 deficiency; Cervical paraspinal muscle spasmStart: 07-10-2025 End: 39-01-1378Aersmjsharon Montoya MD Work Phone: noms NEUROLOGYStart: 07-10-2025 End: 57-16-7861Cwaczvlissett Montoya MD Work Phone: noms NEUROLOGYStart: 07-10-2025 End: 58-06-1167Mwkpwj outpatient visit 25 minutesBarrie Montoya MD Work Phone: noms [facility] NeurologyComment on above: Tremor (Primary Dx); Neurogenic pain; Carotid stenosis, bilateral; Sequelae of cerebral infarction; JOSIAH (obstructive sleep apnea); Cervical paraspinal muscle spasm; B12 deficiencyStart: 07-10-2025 End: 02-34-4361gsquudngrdNCGR D BEJNot AvailableStart: 06-28-2025 End: 68-96-5371Skmkqq Maxine Chicas DPM Work Phone: [facility] CI PODIATRYStart: 06-28-2025 End: 34-83-3425Lnbwix flowsPhoenix Chicas DPM Work Phone: [facility] CI PODIATRYStart: 06-28-2025 End: 58-26-5400Ljbxkwr encounter procedureBlaise Chicas DPM Work Phone: [facility] CI PODIATRYComment on above:Verruca plantaris (Primary Dx); Foot pain, right; Diabetes mellitus due to underlying condition with diabetic polyneuropathy, unspecified whether long distance operator insulin use (HCC); Pain due to onychomycosis of toenails of both feetStart: 06-28-2025 End: 93-80-1327rqoqcnufohJIRCNLLB A BROWNNot AvailableStart: 06-18-2025 End: 78-26-5883zbsqerxogzKZXGOU [facility] Start: 06-11-2025 End: 44-51-2094khgumcuhiePDYSUZRH E PERRYFacility:EU BellevueStart: 06-11-2025 End: 34-32-2869Zmctxdx encounter procedureJENNIFER E SHARA [facility] Alberto start: 05-28-2025 End: 88-25-4730raqqqlhthyIXJP [facility] Centertart: 88-64-5791Damiaqijgx and management of inpatientADAM [facility] Centertart: 14-60-5765Mgjodzuifh and management of inpatientABHISHEK [facility] Street Hospitaltart: 24-76-2729Xyioexrkjw and management of inpatientGEORGE MOUKAWyandot Memorial Hospitaltart: 26-84-2139Jjncrvdvjd and management of inpatientRAGHEB ASSThe MetroHealth Systemtart: 05-88-9280Vkjpieniwd and management of inpatientHANI SAADUniPremier Health Upper Valley Medical Centertart: 05-15-2025 End: 09-92-6931spyggyouxmBAY LEEGerman Hospitaltart: 05-33-2736Oxipmvcbko and management of inpatientCONNIE [facility] Hospitaltart: 08-42-0804Tlqskzudjd and management of inpatient NEDRA [facility] Hospitaltart: 68-27-3070Ygdmjboyoe and management of inpatientCONNIE [facility] Hospitaltart: 68-43-7769Ekiqucnaow and management of inpatientBABAR SANAULLCleveland Clinic Union Hospitaltart: 05-10-2025 End: 05-82-9124Btvtageggu and management of inpatientMOHAMAD AKILUniPremier Health Upper Valley Medical Centertart: 05-08-2025 End: 46-20-6394Qcklae flowsheetMony Herron NP Work Phone: [facility] BM NEUROLOGYStart: 05-08-2025 End: 48-75-9165Ajtibz flowsheetFetresa Herron SHOE PATTERNMAKER Work Phone: noms BM NEUROLOGYStart: 05-08-2025 End: 62-44-5276Ogewfc outpatient visit 40 minutesFetresa Herron SHOE PATTERNMAKER Work Phone: noms SWS NEUR BComment on above:Benign essential tremor (Primary Dx); Neurogenic pain; Sequelae of cerebral infarction; Cervical paraspinal muscle spasm; JOSIAH (obstructive sleep apnea); Carotid stenosis, bilateral; PolyneuropathyStart: 05-08-2025 End: 00-07-3720jiyiztdlnoLVTZPDT C WINDNAGELNot AvailableStart: 04-30-2025 End: 00-09-0880btqurwozctBBUFNM [facility] Start: 04-14-2025 End: 02-36-2952Mazyrwckxp and management of inpatientDO Ronobir R KARTIK Facility:[facility]MCStart: 04-14-2025 End: 65-52-9329Kvrainwjd department patient visitCoteau des [facility]ulatory PPGStart: 78-01-9320evbnrarhpzWKMVRRRSpearfish Regional Hospital Ambulatory PPGStart: 05-08-5960Fwzjhftdw department patient visitAstrit Sergio NancyariFacility:FTMCStart: 04-14-2025 End: 32-31-2390Wfgmaocueq and management of inpatientRonobir R KARTIK [facility] Start: 04-12-2025 End: 52-98-1219Tagtaj flowsheetNicholas A Brown DPM Work Phone: [facility] CI PODIATRYStart: 04-12-2025 End: 44-08-4160Javkcf flowsheetNicholas A Brown DPM Work Phone: [facility] CI PODIATRYStart: 04-12-2025 End: 90-62-9099Ykgkhir encounter procedureNicholas A Brown DPM Work Phone: noMS CI PODIATRYComment on above:Verruca plantaris (Primary Dx); Foot pain, right; Diabetes mellitus due to underlying condition with diabetic polyneuropathy, unspecified whether penitentiary insulin use (CMS/HCC); Pain due to onychomycosis of toenails of both feetStart: 04-12-2025 End: 24-89-8548poiuticpsxYGMWLOVF A BROWNNot AvailableStart: 04-10-2025 End: 93-15-8217Yhvjmmsharon Montoya MD Work Phone: noms NEUROLOGYStart: 04-10-2025 End: 28-89-1515Iolfkqsharon Montoya MD Work Phone: noms NEUROLOGYStart: 04-10-2025 End: 44-17-7493Lxtejk outpatient visit 25 minutesBarrie Montoya MD Work Phone: noms SWS NEUR BComment on above:Benign essential tremor (Primary Dx); Neurogenic pain; Sequelae of cerebral infarction; Cervical paraspinal muscle spasm; JOSIAH (obstructive sleep apnea); Carotid stenosis, bilateralStart: 04-10-2025 End: 78-29-8871gdemxnvgfzWCIS D BEJNot AvailableStart: 03-12-2025 End: 47-25-9200iexsxnrdmkTACQMR [facility] Start: 03-08-2025 End: 44-97-3894Fsivzdlissett Chicas DPM Work Phone: [facility] CI PODIATRYStart: 03-08-2025 End: 73-63-2179Ypvetzlissett Chicas DPM Work Phone: [facility] CI PODIATRYStart: 03-08-2025 End: 23-63-5867Wwfutw follow up visit related to original Jorge Chicas DPM Work Phone: NOM[facility] CI PODIATRYComment on above:Verruca plantaris (Primary Dx); Foot pain, right; Diabetes mellitus due to underlying condition with diabetic polyneuropathy, unspecified whether long distance operator insulin use (CMS/HCC); Pain due to onychomycosis of toenails of both feetStart: 03-08-2025 End: 13-10-2221munbnbcqnxAHTDTPHE A BROWNNot AvailableStart: 02-28-2025 End: 13-64-6390vwlpivaqxzKTVJOX [facility] Start: 46-93-4062qjwkqrychaRBJDUJSSpearfish Regional Hospital Ambulatory PPGStart: 02-14-2025 End: 14-40-4485Yuondqmfy department patient visitCoteau des [facility]iries Hospital Ambulatory PPGStart: 01-03-2025 End: 45-96-2567kyxsshrqctTURGNV [facility] Hospitaltart: 12-14-2024 End: 16-04-5381qarqjzlycyPNOIJF [facility] Start: 12-04-2024 End: 51-01-7042stdsyvahnlXZMXUROJessica LOUISEFacility:NAV MadrigalkStart: 12-04-2024 End: 80-21-1064Mrmoguf encounter procedureMARQUIS LOUISE [facility] Start: 11-30-2024 End: 76-64-5755Oxidlclissett Chicas DPM Work Phone: noms CI PODIATRYStart: 11-30-2024 End: 40-60-2634Sxsenmsharon Chicas DPM Work Phone: noMS CI PODIATRYStart: 11-30-2024 End: 48-03-0740Ihhwlcz encounter procedureBlaise Chcias DPM Work Phone: noms CI PODIATRYComment on above:Verruca plantaris (Primary Dx); Foot pain, right; Diabetes mellitus due to underlying condition with diabetic polyneuropathy, unspecified whether penitentiary insulin use (CMS/HCC); Pain due to onychomycosis of toenails of both feetStart: 11-30-2024 End: 04-52-4630atqnqskniuCFKBYFQA A BROWNNot AvailableStart: 11-06-2024 End: 68-08-2099ypdfiercqjBonlreq R WATERSFacility:EU BellueStart: 11-06-2024 End: 61-37-9609Chhchtf encounter procedureMejia SINGH [facility] start: 11-02-2024 End: 86-28-2795vqxgarwvgmZMBIXXB NKANSAH-AMANKRAFacility:EU kStart: 11-02-2024 End: 45-55-4633Nqsjhiu encounter procedureKWABENA NKANSAH-AMANKRA [facility] Start: 10-30-2024 End: 32-60-1229chqmevjlrpFckstae R WATERSFacility:CD:[id number]: 10-25-2024 End: 33-32-0167xdryrxsnnpYLZCXQV NKANSAH-AMANKRAFacility:EU tart: 10-23-2024 End: 68-71-6478qugxvadfwmYKPIOYP NKANSAH-AMANKRAFacility:FTMCStart: 10-23-2024 End: 71-15-1834Gwayfnr encounter procedureKWABENA NKANSAH-AMANKRA [facility] Start: 10-02-2024 End: 98-43-7603keqpsykutpXKNOQLB NKANSAH-AMANKRAFacility:EU tart: 09-25-2024 End: 73-14-1238birdeyxhgdJQZRNWY NKANSAH-AMANKRAFacility:FTMCStart: 09-25-2024 End: 44-48-7384Drjvtjo encounter procedureKWABENA NKANSAH-AMANKRA [address] [place] [address] Start: 09-14-2024 End: 30-19-9876Mnlqyv flowsPhoenix Cara Chicas DPM Work Phone: noms CI PODIATRYStart: 09-14-2024 End: 83-16-8632Irbxoc flowsNiimollygregg Chicas DPM Work Phone: noms CI PODIATRYStart: 09-14-2024 End: 85-62-7641Tbpzetr encounter procedureNicumm Chicas DPM Work Phone: noms CI PODIATRYComment on above:Verruca plantaris (Primary Dx); Foot pain, right; Diabetes mellitus due to underlying condition with diabetic polyneuropathy, unspecified whether long distance operator insulin use ([facility]); Pain due to onychomycosis of toenails of both feetStart: 09-14-2024 End: 16-77-9654yjsxwljnjtZQKHCEXJ A BROWNNot AvailableStart: 08-24-2024 End: 54-42-0125Dcvune flowsLakisha Joy MD Work Phone: noms SWS DERMStart: 08-24-2024 End: 53-72-5791Ozxbso Gabino Joy MD Work Phone: noms SWS DERMStart: 08-24-2024 End: 63-45-2412Peeuax outpatient visit 15 minutesEmviviane Joy MD Work Phone: noms SWS DERMComment on above:Melanocytic nevus of trunk (Primary Dx); Actinic keratosis; Lentigines; Seborrheic keratosisStart: 35-42-4306nthelmnaoiJUPONXMRosa LOUISE Facility: NorwalkStart: 05-63-3016xcfxfunrezCVVXBJKRosa LOUISEFacility:EU [place]uskyStart: 08-14-2024 End: 37-22-8281Ekfmimstp encounterBarrie Montoya MD Work Phone: noms [facility] NEURO 111Start: 08-08-2024 End: 01-46-5340isfcwiemuqLCDOOTX NKANSAH-AMANKRAFacility:EU [place]walkStart: 08-08-2024 End: 79-65-6333Cyrbtpr encounter procedureMARQUIS LOUISE [facility] Start: 08-03-2024 End: 99-76-7330Ebodlt flowsheetNicholas A Brown DPM Work Phone: noMS CI PODIATRYStart: 08-03-2024 End: 12-99-9317Cwywsn flowsheetNicholas A Brown DPM Work Phone: noms CI PODIATRYStart: 08-03-2024 End: 95-68-3370Qfsxfuf encounter procedureNicholas A Brown DPM Work Phone: noMS CI PODIATRYComment on above:Verruca plantaris (Primary Dx); Foot pain, right; Xerosis cutisStart: 08-01-2024 End: 40-05-2574Ytfdaa Kemi Montoya MD Work Phone: noms BM NEUROLOGYStart: 08-01-2024 End: 87-45-4802Ahnpcb Kemi Montoya MD Work Phone: noms BM NEUROLOGYStart: 08-01-2024 End: 14-96-4942Aeywgd outpatient visit 25 minutesBarrie Montoya MD Work Phone: noms SWS NEUR BComment on above:Neurogenic pain (Primary Dx); Benign essential tremorStart: 07-20-2024 End: 89-98-1912Vkjfhn flowsheetNicholas A Brown DPM Work Phone: noMS CI PODIATRYStart: 07-20-2024 End: 82-32-2735Qutjdk flowsheetNicholas A Brown DPM Work Phone: [facility] CI PODIATRYStart: 07-20-2024 End: 37-55-0702Hbwptxh encounter procedureNicmollygregg Marroquin Brown DPM Work Phone: noms CI PODIATRYComment on above:Verruca plantaris (Primary Dx); Foot pain, right; Xerosis cutisStart: 07-06-2024 End: 63-28-6543Gwfric flowsheetNicholas A Brown DPM Work Phone: noms CI PODIATRYStart: 07-06-2024 End: 50-04-6887Lpbeqa flowsheetNicholas A Brown DPM Work Phone: noms CI PODIATRYStart: 07-06-2024 End: 56-20-5111Akjboi outpatient visit 15 minutesNicumm Marroquin Brown DPM Work Phone: noms CI PODIATRYComment on above:Xerosis cutis (Primary Dx); Verruca plantaris; Foot pain, right; Diabetes mellitus due to underlying condition with diabetic polyneuropathy, unspecified whether long distance operator insulin use ([facility]); Onychomycosis; Toe pain, bilateralStart: 10-14-2023 End: 92-27-5650Qcvqnrq encounter procedureBeth Cara L2 709-0115Mtinzo-JcrqjMer[facility] Start: 10-01-2023 End: 02-84-2293Qnsznmv encounter procedureBeth Cara L2 [facility] Start: 10-01-2023 End: 31-20-5143Ryzoyjc encounter procedureBeth Cara L2 899-3878Yvsmja-XkvnjMercy Health Lor[facility] Hospital [facility] Start: 09-13-2023 End: 14-42-6573Ruypmsu encounter procedureBeth A L2 686-9136Leooof-DrdcfMercy Health Lor[facility] Hospital [facility] Start: 06-10-2023 End: 59-75-8633Nhpdlzy encounter procedureBeonofre Marroquin L2 509-1140Lrvxoi-UksboMercy Health Lor[facility] Hospital [facility] Start: 04-15-2023 End: 70-44-7122Vcy Drop offBeth Cara L2 [facility] Start: 04-13-2023 End: 72-55-6588Okiwlmh encounter procedureBeth A L2 874-9099Npqzxw-AceqkMercy Health Lor[facility] Hospital [facility] Start: 03-24-2023 End: 73-95-8423mxzrkhgegdRZ DINWESLEY LINDAFacility:L0Zgolt: 02-27-2023 End: 04-17-3184yivswxmonxEA VAN HOY .Facility:G8Valvi: 12-28-2022 End: 32-77-1187glpdparuijFS DINWESLEY KAWFacility:K3Cntrr: 11-16-2022 End: 76-38-4940yfmxewwmjiIA DINKAR FORT BIDWELLFacility:K0Ykmqk: 11-02-2022 End: 07-90-5571gbplwyfqpoII VAN HOY .Facility:C5Nihai: 07-18-2022 End: 68-42-6468Tkqqwgcyyg and management of inpatientDR VAN HOY .Facility:H1 Start: 07-13-2022 End: 54-88-6007wtugslbftxPL VAN HOY .Facility:I1Xvqcc: 07-01-2022 End: 05-43-2569nuughpurswKI CLARIBEL CLAUDIOANJUMELFacility:L3Msfrt: 06-16-2022 End: 59-62-3727khrfrhngsgBD VAN HOY .Facility:H3Sadom: 06-09-2022 End: 72-20-1296Rmijtae encounter procedureBeonofre Joyametz [phone]-WvyntMercy Health Lor[facility] Hospital [facility] Start: 06-08-2022 End: 86-83-5440ukmigjswykKCXZGKWO ALIFacility:N1Vxiaz: 05-11-2022 End: 19-64-0921Nhhcoso encounter procedureMaher SALAM [facility] Start: 04-28-2022 End: 58-96-6526orvosuthckFM VAN YOUSSEF .Facility:C6Cfvmd: 03-31-2022 End: 65-69-3853Nuiygaf encounter procedureBeonofre Gomez 184-4130Mhajnj-SjymkMercy Health Lor[facility] Hospital [facility] Start: 2019 End: 62-26-1253Nutknlm encounter procedureDEFAULT PHYSICIANFacility:[facility] Procedures DateProcedureProcedure DetailPerforming ClinicianStart: 82-79-1117FJPV / NAIL BIOPSYEmviviane Joy MD Work Phone: Start: 92-56-0070FCAUOEIXPCY SKIN LESIONEmviviane Joy MD Work Phone: Start: 80-58-2013ESMBMDEILSB SKIN LESIONEmily Cara Joy MD Work Phone: Start: 21-47-4857HnfoaaceurwGfpaw SALAM Comment on above:2 polyps, diveticulosis, IHStart: 26-79-6671EcbwhzcphyedaNvqh Steinmetz Back structure, excluding neck (body structure)Nereyda Patricia CholecystectomyBeonofre Gomez ColonoscopyBeonofre Gomez History of hernia repairBeth Patricia TonsillectomyNereyda Gomez Plan of Treatment DateCare ActivityDetailAuthorStart: 09-10-2026 End: 11-64-8502Ovlfffa encounter ifslfkjdo10/27/2026 1:15 PM EDT Office Visit [facility] [address] [place] [address] Rodney Joy MD [address] [place], [place] [id number] [facility] [place] [facility]: 10-09-2025 End: 13-40-7571Hymburw encounter procedureNOMS SWS NEUR BStart: 09-20-2025 End: 77-36-0602Bhzbbxo encounter /06/2025 11:40 AM EST Office Visit [facility] [address] [facility] [address] [place] [address] Blaise Chicas DPM [address] [facility] [address] [place] [address] [facility]ODIATRYStart: 09-18-2025 End: 53-02-1889Alozlyq encounter xfdljjgoy87/04/2025 12:30 PM EST Office Visit [facility] [place] [facility] [address] [place] [address] Barrie Montoya MD [address] [facility] [address] [place], [place] [id number] [facility] [place] [facility] Start: 09-11-2025 End: 04-67-8220Eirbkkv encounter procedureNOMS SWS DERMComment on above:Arrived Start: 82-26-9264Xsfpn cultureAshtabula County Medical Centertart: 09-04-2025 Bacteria identified in Urine by CultureUrine [facility] for Rehabilitationtart: 29-62-1419UUDCF-19 Vaccine ( season)COVID-19 Vaccine ( season)[facility] HealthcareStart: 08-23-2025 End: 24-21-2848Ufrywbh encounter ohuqeutts62/09/2025 10:50 AM EDT Office Visit [facility] [address] [place] [address] Rodney Joy MD [address] [place] [address] [facility] DERMStart: 26-33-7154Efrdxvsul vaccination Influenza Vaccine (#1)[facility] HealthcareStart: 07-10-2025 End: 89-43-2438Dqapjhv encounter procedureNOMS SWS NEUR BComment on above: ArrivedStart: 06-28-2025 End: 79-02-0559Ontmqpk encounter rtbumznww83/14/2025 11:50 AM EDT Office Visit [facility] [address] [facility] [address] [place] [address] Blaise Chicas DPM [address] [address] Verruca plantaris (Primary Dx); Foot pain, right; Diabetes mellitus due to underlying condition with diabetic polyneuropathy, unspecified whether penitentiary insulin use (HCC); Pain due to onychomycosis of toenails of both feetNOMS CI PODIATRYComment on above:Verruca plantaris (Primary Dx); Foot pain, right; Diabetes mellitus due to underlying condition with diabetic polyneuropathy, unspecified whether long distance operator insulin use (HCC); Pain due to onychomycosis of toenails of both feetStart: 06-21-2025 End: 47-42-7061Qgncnjk encounter ahwoccnot54/07/2025 10:40 AM EDT Office Visit [facility] [address] [facility] [address] [place] [address] Blaise Chicas DPM [address] [address] N[facility] CI PODIATRYStart: 05-08-2025 End: 01-34-6117Uujkuwe encounter vrotvfqqc54/24/2025 2:00 PM EDT Office Visit [facility] NE[facility] B [address] [place] [phone] Mony Herron, SHOE PATTERNMAKER [address], [address] [place] [phone] ArrivedNOMS SWS NEUR BComment on above: ArrivedStart: 04-12-2025 End: 56-59-3906Sedllbq encounter procedureNOMS CI PODIATRYComment on above: Verruca plantaris (Primary Dx); Foot pain, right; Diabetes mellitus due to underlying condition with diabetic polyneuropathy, unspecified whether penitentiary insulin use (CMS/HCC); Pain due to onychomycosis of toenails of both feetStart: 03-08-2025 End: 52-63-3975Jaqjvzu encounter zlqdnfyqv85/24/2025 9:20 AM EDT Office Visit [facility] [address] [address] Blaise Chicas DPM [address] [address] Verruca plantaris (Primary Dx); Foot pain, right; Diabetes mellitus due to underlying condition with diabetic polyneuropathy, unspecified whether penitentiary insulin use (CMS/HCC); Pain due to onychomycosis of toenails of both feetNOMS CI PODIATRYComment on above:Verruca plantaris (Primary Dx); Foot pain, right; Diabetes mellitus due to underlying condition with diabetic polyneuropathy, unspecified whether long distance operator insulin use (CMS/HCC); Pain due to onychomycosis of toenails of both feetStart: 02-15-2025 End: 20-34-6274Jliczdw encounter qpdnfujmz64/03/2025 8:40 AM EDT Office Visit [facility] [address] [address] Blaise Chicas DPM [address] [address] [facility] CI PODIATRYStart: 11-30-2024 End: 04-90-9660Dkrkxaf encounter procedureNOMS CI PODIATRYComment on above: Verruca plantaris (Primary Dx); Foot pain, right; Diabetes mellitus due to underlying condition with diabetic polyneuropathy, unspecified whether penitentiary insulin use (CMS/HCC); Pain due to onychomycosis of toenails of both feetStart: 10-10-2024 End: 07-90-9087Gxpnkvc encounter iconbhakb85/26/2024 10:45 AM EST Office Visit [facility] B [address] [phone] Barrie Montoya MD [address] [address] [facility] BStart: 09-14-2024 End: 86-72-6901Farhhrx encounter procedureNOMS CI PODIATRYComment on above: Verruca plantaris (Primary Dx); Foot pain, right; Diabetes mellitus due to underlying condition with diabetic polyneuropathy, unspecified whether long distance operator insulin use (CMS/HCC); Pain due to onychomycosis of toenails of both feetStart: 08-24-2024 End: 18-81-2030Jtwymmt encounter procedureNOMS SWS DERMComment on above:Arrived Start: 08-03-2024 End: 74-18-8744Eytpsyc encounter procedureNOMS CI PODIATRYComment on above: Verruca plantaris (Primary Dx); Foot pain, right; Xerosis cutisStart: 08-01-2024 End: 18-17-9735Wnbjozj encounter duxdbaegi56/17/2024 1:30 PM EDT Office Visit [facility] B [address] [phone] Barrie Montoya MD 5319 [facility] [address] [address] [facility] NEUR BStart: 08-01-2024 End: 88-98-4984Vcwawia encounter qbsnilwdi08/17/2024 11:30 AM EDT [facility] [address] [phone] Barrie Montoya MD 0355 [facility] 111 [place], [place] [id number] ArrivedNOMS SWS NEUR BComment on above:ArrivedStart: 07-20-2024 End: 62-37-8483Iwjkfjf encounter procedureNOMS CI PODIATRYComment on above: Verruca plantaris (Primary Dx); Foot pain, right; Xerosis cutisStart: 67-87-1411Shgewbiaw vaccinationInfluenza Vaccine (#1)NOMS HealthcareStart: 07-06-2024 End: 94-61-4859Eirhqcn encounter roixmccpi35/22/2024 8:40 AM EDT Office Visit [facility] 112 [facility] [address] [place] [address] Blaise Chicas DPM 3006 [facility] 5 [place] [address] Verruca plantaris (Primary Dx); Foot pain, right; Diabetes mellitus due to underlying condition with diabetic polyneuropathy, unspecified whether long distance operator insulin use (CMS/[facility]); Onychomycosis; Toe pain, bilateral; Xerosis cutisNOMS CI PODIATRYComment on above:Verruca plantaris (Primary Dx); Foot pain, right; Diabetes mellitus due to underlying condition with diabetic polyneuropathy, unspecified whether long distance operator insulin use (CMS/HCC); Onychomycosis; Toe pain, bilateral; Xerosis cutisStart: 31-72-3794NZlC/Tdap/Td Vaccines (1 - Tdap)DTaP/Tdap/Td Vaccines (1 - Tdap)[facility] HealthcareDermatopathology examDermatopathology exam Pathology and Cytology Timed Neoplasm of unspecified behavior of bone, soft ti ssue, and skin Release Upon Ordering for 1 Occurrences starting 09/11/2025[facility] Work Phone: comment on above:Release Upon Ordering for 1 Occurrences starting 09/11/2025 Immunizations Immunization DateImmunizationNotesCare DzbxgjfmAyfddkdb97-07-8462uwnwrx vaccine recombinantJENNIFER SHARA [facility]10-01-2024influenza virus vaccine, unspecified formulationBlaise Brown DPM Work Phone: [facility] HealthcareEhwvorpfgb60-54-7539TWM vaccine, preF A-preF B, recombinantJENNIFER SHARA [facility]10-06-2023influenza virus vaccine, unspecified formulationNicumm Brown DPM Work Phone: [facility] HealthcareEomloombjd75-43-5445TXCC-OjX-5 (COVID-19) mRNAMUL.ORD![id number] Gomez [phone]-BskrrMercy Health [facility] Hospital Digestive HealthComment on above:Result Comment: 2023-04-13: [id number]-VzT-9 (COVID-19) mRNA BNT- 162b2 Isela Patricia [phone]-WfacwMercy Health [facility] Hospital Digestive Wsqyti78-44-9439 SARS-CoV-2 (COVID-19) mRNA BNT-162b2 gabyxBeth Patricia [phone]-IqshbMiddletown Hospital Mruoms03-92-1691 SARS-CoV-2 (COVID-19) mRNA BNT-162b2 gabySentient Mobile Inc.robbie Patricia [phone]-TnabgMercy Health [facility] Hospital Digestive Cgldud68-68-5274 zoster vaccine recombinantJENNIFER SHARA [facility]10-13-2020influenza virus vaccine, unspecified formulationBeonofre Patricia [phone]-PiucyMercy Health [facility] Hospital [facility]ive Urgmsq92-86-3585 tetanus toxoid, reduced diphtheria toxoid, and acellular pertussis vaccine, adsorbedJENNIFER SHARA [facility]12-16-2019zoster vaccine recombinantLU OLMEDO [facility]10-02-2017pneumococcal conjugate vaccine, 13 valentNereyda Gomez [phone]-XwnqrMercy Health [facility] Hospital Digestive Lmjuii03-83-4981 influenza, unspecified formulationNereyda Patricia [phone]-QnxbpMercy Health [facility] Hospital Digestive Oqnwxl31-17-4645 zoster vaccine, liveNereyda Patricia [phone]-EekmrMercy Health [facility] Hospital Digestive HealthNEGATED: Highlighted row has not occurred!04-41-7906lcwsjrrhs virus vaccine, unspecified formulationNereyda Patricia [phone]-MkoshMercy Health Lor[facility] Hospital Digestive HealthNEGATED: Highlighted row has not occurred!80-65-0688gccmexyft virus vaccine, unspecified formulationNereyda Patricia [phone]-PxjlyMercy Health [facility] Health Payers DatePayer CategoryPayerPolicy [id number] Health [id number] [id number] 2004Medicare [id number] [id number] 1939 [id number] 2.16.840.1.993042.3.57[id number] 2.16.840.1.328818.3.57[id number] 2.16.840.1.698200.3.57[id number] 2.16.840.1.683662.3.57[id number] 2.16.840.1.462832.3.57[id number] 2.16.840.1.947985.3.579.2.94599-58-8521Ipbtmmt7158408 2.16840.1.041380.3.579.[id number] 2.16840.1.913760.3.579.2.18963-30-3156Hjyaijj8362608 2.16840.1.344967.3.579.2.51272-40-5916Furzbli0835575 2.16840.1.389821.3.579.2.05296-03-8491Zyxczdl4452142 2.16840.1.954347.3.579.2.76598-71-2010Nbayiey6522057 2.16840.1.582767.3.579.[id number] 2.16840.1.170367.3.579.2.71003-47-9773Zyhpdww83732986 2.16840.1.012945.3.579.2.80510-17-4721Caecejl95946062 2.16840.1.560123.3.579.2.77867-77-1453Jzyegmb65475443 2.16840.1.980224.3.579.2.90232-79-8103Kkcrtyq51450030 2.16840.1.427049.3.579.2.17443-74-8801Qcrcqgz549093101 2.16.840.1.891610.3.579.2.496700-83-7006Zlilvvt502903538 2.16840.1.611660.3.579.2.858004-36-0572Dbsnxml420809046 2.16840.1.358735.3.579.2.799254-15-1072Knmzwnh339215862 2.16840.1.453251.3.579.2.401446-53-8674Kwybrfd155281655 2.16840.1.290215.3.579.2.178134-87-5900Cfoleas981747697 2.840.1.947969.3.579.2.279266-12-7358Ifddxiw870229700 2.0.1.372024.3.579.2.298304-53-1554Jsttxmr755248480 2.840.1.677966.3.579.2.675622-02-6422Djzquzo811438832 2.840.1.308599.3.579.2.172506-92-2428Gczkkgo63433997 2.840.1.150181.3.579.2.22597-09-6514Qdtnqgo94190590 2.0.1.992476.3.579.2.38389-69-1888Jhkoksk67787230 2.840.1.993202.3.579.2.21743-19-1479Obrbque20873811 2.16840.1.389155.3.579.2.42545-92-9044Adslivm84565382 2.16840.1.807204.3.579.2.59814-82-1790Jxrrxaj27084169 2.16.840.1.475997.3.579.2.09556-22-7304Buqrdyj97647381 2.16840.1.402068.3.579.2.24162-56-4471Zszvzxe17517369 2.160.1.568214.3.579.2.53192-99-7808Tzjnbej41557726 2.160.1.320030.3.579.2.15798-20-2530Eifunpa42195779 2.160.1.495222.3.579.2.76103-10-1668Wyqpujj69333011 2..1.151250.3.579.2.80596-36-2902Cwgmftk83212880 2..1.347211.3.579.2.03156-50-3328Xzmtwwm53815074 2.0.1.202076.3.579.2.28240-60-2350Cvxmcib78489726 2..1.886850.3.579.2.17348-54-2357Tttwhfw57076591 2..1.905785.3.579.2.10810-62-5337Erldbbb01335273 2..1.235000.3.579.2.626505-70-0573Ufcuzjo53638003 2.0.1.551686.3.579.2.052918-03-9404Nsrvtej14579385 2.16840.1.077400.3.579.2.166340-31-4230Krttiwo84775923 2.16840.1.082239.3.579.2.659925-32-1957Jbnqhlg27757117 2.16.840.1.235158.3.579.2.659924-50-6555Gqfwsaf7325995 2.16.840.1.669165.3.579.2.228915-10-5110Eviymzw1635195 2.16.840.1.021153.3.579.2.461021-33-8405Ebhklvv8190495 2.16.840.1.419446.3.579.2.588065-77-3504Covbhfk0895380 2.16.840.1.503305.3.579.2.749218-34-3352Pmoxrws5346249 2.16.840.1.033[id number] 2.16.840.1.344800.3.579.2.531 Social History DateTypeDetailFacilityStart: 03-31-2022 End: 47-03-1655Zhtoqgp smoking statusEx-smoker (finding)[facility] Start: 01-27-2023 End: 76-33-1365Ykrwyks smoking statusNeverMercy Health [facility] Hospital [facility] Start: 08-24-2024 End: 77-63-9310Eya Assigned At BirthC[facility] Start: 58-01-0884Atykkxp smoking status NHISTobacco smoking consumption unknownNOMS HealthcareStart: 08-03-2024 End: 04-48-4040Syetcqhqg beverage intakeLifetime non-drinker (finding)[facility] HealthcareStart: 27-60-2039Fhipxuz Commentcaffeine 1-2 cups/dayNOMS Healthcare Start: 54-35-9225Ejy assigned at birthNot on fileNOMS HealthcareHistory of tobacco useCurrent smokerNOMS HealthcareHistory of tobacco useCigarette Smoker NOMS HealthcareStart: 63-33-1828Gjgcuke use and exposureSmokeless tobacco non-userNOMS HealthcareStart: 08-24-2024 End: 29-12-3907Iqqkenp of Social functionNOMS HealthcareSexual OrientationThe Christ Hospital Start: 75-93-3181YdzGekb (finding)[facility] Hospitaltart: 62-34-4647Mfl Assigned At [facility] Functional Status ZoltUtxumjubvpJjmgkmPzswtnoq31-84-0302Yxffyxjhzr StatusN/A[facility] [place] 913582-19-2024Functional StatusN/A[facility] [place] 913582-09-2024Functional StatusN/A [facility]11-11-2024Functional StatusN/[facility]09-24-2024Functional StatusN/A[facility] [place] 913581-30-2023Functional StatusN/[facility] Digestive Lutthv11-37-8600Aguhroxftr StatusNoMer[facility] Health [facility] Hospital [facility]estive Qzwlsj54-97-7001Ekdkocmyad StatusN/[facility] Digestive Iuncly83-12-6577Zhtfersibl StatusN/[facility] Dig[facility] Health 643901-80-1528Tosjfrsdnt StatusN/[facility] Clinical Notes 03-31-2022 to 09-11-2025 Note Date & IvicZyskIillrnsn83-21-1016 History of Present illness Narrative* Rodney Joy MD - 09/11/2025 1:15 PM EDT [...] limited to risks of scarring, darker or carbonizer tester pigmentary changes, recurrence, incomplete removal and [...] TISSUE, AND SKIN Left Knee - Anterior Brielle papule - Lesion biopsy Type of biopsy: [...] year, pending bx results documented in this encounterThree Rivers HealthcareHwyejffcbv86-34-5504 Telephone encounter Note* Telephone Encounter - Sammy Esposito - 08/23/2025 10:48 AM EDT Radha called and advised of message, she took verbal order from me. [facility] HealthcareOrrhpcjxtz35-67-8019 Miscellaneous Notes* Telephone Encounter - Sammy Esposito [...] anything. Daughter said pt is currently at [facility] and asked I call mgr Garcia .LM for Radha asking for RC to let us know where to send orders. documented in this encounterThree Rivers HealthcareYpnxuhkfoa89-15-9268 Telephone encounter Note* Telephone Encounter - Claritza [...] anything. Daughter said pt is currently at [facility] and asked I call mgr Garcia .LM for Radha asking for RC to let us know where to send orders. [facility] HealthcareEkcwacqrid61-06-[address] [facility] Patient: Nadir Beht; 85 y.o. Visit date: 08/01/25 Reason for today's visit: Follow up for CKD stage 3, Hypertension, Edema/ Fluid overload, and Electrolytes disturbances SUBJECTIVE: BACKGROUND: Nadir Beth is a 85 y.o. male has a past medical history of Abnormal ECG, Arrhythmia, Atrial fibrillation ([facility]), CHF (congestive heart failure) ([facility]/HCC), Chronic kidney disease, COPD (chronic obstructive pulmonary disease) ([facility]/HCC), Coronary artery disease, Diabetes mellitus ([facility]/HCC), Heart valve disease, Hypertension, Pericardial effusion, Sleep apnea, and Stroke ([facility]). History of paroxysmal atrial fibrillation maintained on anticoagulation with Eliquis, aortic stenosis, renal artery stenosis, and hypertension. He had stenting of the left renal artery from the left radial approach on 05/01/2015 (Express SD 6 mm x 18 mm stent). He was admitted to the [facility] in August 2022 due to hyponatremia, [...] (Bentyl) 10 mg ca (more content not included)...[facility]09-15-2025 NotePHARMACIST CONSULT - REFERRAL 07/31/25 Referring Provider: Ruy Sullivan CNP Clinic: [facility] Nadir Beth is referred to clinic [...] call patient to schedule. Huong Jean PharmD [facility]25[facility] NoteReferring provider agrees with trying edoxaban. Called patient's daughter and conveyed plan, including how to switch between medications. She asked that medication be sent to the [facility] in [place], [place]. She also provided the phone number for the patient's senior project coordinator, Radha [[phone]]. Provided instructions for switching between medications. Provided clinic phone number in case of questions or coverage issues. Huong Jean PharmD [facility] 08/03/25 8:37 [facility]09-15-2025 NotePatient's daughter called to clarify if edoxaban was safe with his aortic valve and kidney disease. Reassured her that the medication had been dose-adjusted for kidney function and that it is safe for his heart valve (patient is s/p TAVR, has no mitral valve stenosis). Huong Jena PharmD [facility] 08/03/25 10:37 [facility]09-15-2025 NotePA was approved through 11/14/25. Called pharmacy and notified them - they will order medication. Huong Jean PharmD [facility] 08/07/25 1:14 [facility]09-15-2025 NoteReceived phone call from the [facility] that patient's edoxaban will require PA. Preferred meds (apixaban and rivaroxaban) are not options due to drug interaction, will need to switch to warfarin if PA is not successful. Cover My Meds stephenson: [id number] Routing to [employer] for completion. Huong Jean PharmD [facility] 08/03/25 10:45 [facility]09-15-2025 NoteCalled Radha (senior project coordinator) and she confirmed that edoxaban was picked up and started yesterday (08/09/25). They have discontinued and discarded the Xarelto. He is tolerating the edoxaban well, and they have no further questions. Will follow for labs in 2 months. Huong Jean PharmD [facility] 08/10/25 10:53 [facility]09-15-2025 NoteSUBJECTIVE Reason for Visit: Nadir Beth is a 85 y.o. year old male patient being seen for follow-up appointment. HPI: Nadir Beth is a 85 y.o. year old male with significant medical history of A-fib on Xarelto, hypertension, HFpEF, CKD, recent history of CVA 4 months back, renal artery stenosis transferred from [facility] for acute on chronic heart failure. Patient had history of stroke 4 months back and was in rehab patient has been having progressive lower extremity edema for few days. Patient was advised to increase his Lasix from 20 to 40 mg and blood work was done which showed BNP 6214 and was advised to go to the ED. In [facility] ED chest x-ray showed pulmonary vascular congestion [...] on exam. He is scheduled with his scalemaker this week. 06/18/2025 office visit (Dr. Cisneros): [...] available. He continues to be at the [facility] for rehab. I will continue current medications [...] mg, Daily cholecalciferol (VITAMIN (more content not included)...[facility]09-12-2025 History of Present illness Narrative* Barrie [...] Hx JOSIAH - (Per Dr. John, [facility]). Failed Semeiology Circadian Noct oxim PSG _ ([facility]) - _ PAPT ([facility]) - AHI=8.1 @ 31/10 (max pressure) MSLT [...] --card) AEs Hx No recent sx. Adm Alberto 04/2025 dysarthria. Onset Semeiology Imaging MR brain (02/2025, [facility]) - rev'd with pt - no report sent - on my review, atrophy mod-sev, 8-10 UBOs, most tiny, 2 mod incl R fro & R splenium ml CTA head (04/2025 [facility]) - stenosis R M1 mod CTA neck (04/2025 [facility]) - 50% B MRA head (02/2025, [facility]) - no stenoses MRA neck (02/2025, [facility]) - no stenoses, dom R vert US carotids (02/2025, [facility]) - < 50% B by velocity, but mod plaque poss causing stenosis CT head (04/2025, [facility]) - hypodensity L caudate 8 mm Testing [...] ? [address] ? [place], [place] [address] ? ? fax Neurology ? Clinical Neurophysiology ? Epilepsy ? Sleep Disorders ? Clinical Informatics documented in this encounterThree Rivers HealthcareXdhbxambxc89-90-5942 History of Present illness Narrative* Barrie Montoya [...] Hx JOSIAH - (Per Dr. John, pul [facility]). Failed Semeiology Circadian Noct oxim PSG _ ([facility]) - _ PAPT ([facility]) - AHI=8.1 @ 17/12 (max pressure) MSLT [...] --card) AEs Hx No recent sx. [facility] 04/2025 dysarthria. Onset Semeiology Imaging MR brain (02/2025, [facility]) - rev'd with pt - no report sent - on my review, atrophy mod-sev, 8-10 UBOs, most tiny, 2 mod incl R fro & R splenium ml CTA head (04/2025 [facility]) - stenosis R M1 mod CTA neck (04/2025 [facility]) - 50% B MRA head (02/2025, [facility]) - no stenoses MRA neck (02/2025, [facility]) - no stenoses, dom R vert US carotids (02/2025, [facility]) - < 50% B by velocity, but mod plaque poss causing stenosis CT head (04/2025, [facility]) - hypodensity L caudate 8 mm Testing [...] Barrie Montoya M.D. [facility] ? [address] [facility] [address] ? [place] [address] ? ? fax Neurology ? Clinical Neurophysiology ? Epilepsy ? Sleep Disorders ? Clinical Informatics documented in this encounterThree Rivers HealthcareIcpwjezdpb44-86-3938 History of Present illness Narrative* Blaise Chicas DPM - 06/28/2025 11:50 AM EDT Patient: Nadir Hamilton Kirit : [...] Strain: Low Risk (05/10/2025) Received from [facility] Overall Financial Resource Strain (CARDIA) Difficulty of Paying Living Expenses: Not hard at all Food Insecurity: No Food Insecurity (05/10/2025) Received from [facility] Hunger Vital Sign Within the past 12 months, you worried that your food would run out before you got the money to buymore.: Never true Ran Out of Food in the Last Year: Not on file Transportation Needs: No Transportation Needs (05/10/2025) Received from [facility] Transportation In the past 12 months, has lack of transportation kept you from medical appointments or from getting medications?: No Lack of Transportation (Non-Medical): Not on file Physical Activity: Not on file Stress: Not on file Social Connections: Not on file Intimate Partner Violence: Unknown (05/10/2025) Received from [facility] Humiliation, Afraid, Rape, and Kick questionnaire Fear of Current or Ex-Partner: No Emotionally Abused: Not on file Physically Abused: Not on file Sexually Abused: Not on file Housing Stability: Low Risk (05/10/2025) Received from [facility] Housing Stability Vital Sign In the last 12 months, was there a time when you were not able to pay the mortgage or rent on time?: No Number of Times Moved in the Last Year: Not on file At any time in the past 12 months, were you homeless or living in a usp (including now)?: No ROS: Gastrointestinal: denies abdominal [...] and negative PT pedal pulses NEURO: 5.07 [place] [employer] monofilament test diminished to digits and forefoot bilaterally 125Hz tuning fork diminished to 1st MPJ bilaterally ORTHO: Positive pain on palpation to nails 1 through 10 Minimal pain on palpation of right foot lesion ASSESSMENT 1. Verruca plantaris 2. Foot pain, right 3. 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 Pain due to [...] gear Blaise Chicas DPM documented in this encounterThree Rivers HealthcareRaoiqmtlzq61-22-9332 NoteUT Cardiology - [facility] Subjective Nadir Beth is a [...] he was referred to see pulmonary at [facility] and daughter wants to know if they can see someone more locally. Patient Active Problem List Diagnosis Aortic valve disorder Atherosclerosis of renal artery Chronic atrial fibrillation (CMS/HCC) Coronary arteriosclerosis Bradycardia Aortic valve stenosis Type 1 diabetes mellitus (CMS/HCC) Type 2 diabetes mellitus with stage 3 chronic kidney disease, without long-term current use of insulin ([facility]/HCC) Stage 3 chronic kidney disease (CMS/HCC) Sleep [...] bladder) Post-void dribbling Pulmonary heart disease, unspecified ([facility]/HCC) Abnormal findings on diagnostic imaging of heart and coronary circulation Primary hypertension Acute congestive heart failure ([facility]/HCC) History of CVA (cerebrovascular accident) Type 2 diabetes mellitus, with long-term current use of insulin ([facility] [facility]) Other hyperlipidemia Chronic atrial fibrillation ([facility]) Chest pain Angina pectoris, unstable ([facility]) Chronic kidney disease Elevated troponin Nonrheumatic aortic [...] diuretic therapy. He was admitted to the [facility] in August 2022 due to hyponatremia, hyperkalemia and acute kidney injury, leukocytosis secondary to COVID-19 causing dehydration. I saw him on 05/24/2023 and the office and he had significant evidence of volume overload by exam and echocardiogram. I intensified his diuretic regimen. He ended up getting admitted to the [facility] with acute heart failure exacerbation and [...] On 02/14/2025 he was admitted to the [facility] with altered mental statu (more content not included)...[facility] 06-12-2025 NotePatient Education Urology Benign Prostatic [...] Follow these instructions at home: ??? Take nccq-aym-zmqcgiy and prescription medicines only as told by [...] not get (more content not included)...[facility]07-14-2025 NoteSUBJECTIVE Reason for Visit: Nadir Beth is a 85 y.o. year old male patient being seen for status post TAVR follow-up. HPI: Nadir Beth is a 85 y.o. year old male with significant medical history of A-fib on Xarelto, hypertension, HFpEF, CKD, recent history of CVA 4 months back, renal artery stenosis transferred from [facility] for acute on chronic heart failure. Patient had history of stroke 4 months back and was in rehab patient has been having progressive lower extremity edema for few days. Patient was advised to increase his Lasix from 20 to 40 mg and blood work was done which showed BNP 6214 and was advised to go to the ED. 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 HPI: Nadir Beth is a 85 y.o. year old male with significant medical history of A-fib on Xarelto, hypertension, HFpEF, CKD, recent history of CVA 4 months back, renal artery stenosis transferred from [facility] for acute on chronic heart failure. Patient had history of stroke 4 months back and was in rehab patient has been having progressive lower extremity edema for few days. Patient was advised to increase his Lasix from 20 to 40 mg and blood work was done which showed BNP 6214 and was advised to go to the ED. In [facility] ED chest x-ray showed pulmonary vascular congestion [...] Daily with even (more content not included)... [facility]07-03-2025 NoteDischarge Planning SW sent updates through [facility] to [facility]. Patient is medically ready for discharge. MATHEW confirmed facility is able to accept patient today. [facility] set up ambulance transport with [facility] for 7:35 PM. Call report # ([phone]. Patient and his family notified. Treatment team and facility notified. DC packet left with patient's physical chart.[facility]07-03-2025 NotePhysical Therapy A PT treatment was attempted, however the patient was unavailable and out of the room. Will continue to follow patient for PT intervention.[facility]07-03-2025 NoteCardiothoracic Surgery Progress Note 05/17/2025 Room: [address] [place] [address] Subjective Sitting in bed. No complaints. Denies [...] Problems: Primary hypertension Acute congestive heart failure ([facility]) History of CVA (cerebrovascular accident) Type 2 diabetes mellitus, with long-term current use of insulin ([facility]) Other hyperlipidemia Chronic atrial fibrillation ([facility]) Chronic kidney disease Elevated troponin S/P TAVR (transcatheter aortic valve replacement) Aortic stenosis, severe Angina pectoris, unstable ([facility]) Nonrheumatic aortic valve stenosis Plan: S/P [...] Cardiothoracic Surgery Inpatient from 8am-4pm call Ascom #[phone]. Only use [employer] chat for general questions. If unable to reach Ascom Number call hospital telephone operator receptionist for Cardiothoracic Provider Automation Controls Specialist. Cardiothoracic Surgery outpatient Office Number [phone]. Cardiothoracic Surgery outpatient .[facility]07-03-2025 Note Attestation signed by Nikolas Gonzalez [...] anticoagulation should be held. Nikolas Gonzalez MD [facility] Pulmonary and Critical Care Medicine Primary Pulmonology Progress Note Patient - Nadir Beth Age - 85 y.[facility]. [facility] 1940 [id number] Date of Admission - 05/10/2025 2:37 AM [...] was admitted as a direct transfer from [facility] on 05/10/2025 for acute on chronic heart failure. 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 He presented to the ED on the advice of his physician following an increase in lower extremity edema with associated labs showing a BNP 6200. In the [facility] ED he was found to have pulmonary vascular congestion with right sided pleural effusion on chest x-ray, and found to be hypertensive at 190/68, and EKG showed A-fib, he was initially managed medically with lasix and antihypertensives prior to transfer. Patient follows up with Dr. Bland who had scheduled right heart cath on 05/10/2025. At [facility] echo was performed which was [...] Intake/Output Summary (Last 24 hours) at 05/17/2025 0711 Last data filed at 05/17/2025 0631 Gross per 24 hour Intake 672.71 ml Output 500 ml Net 172.71 ml Ventilator: Lab Results ABG: No results found for: PHART , PNS2PEM , PO2ART , YZJ3VYT , IONCALART No results found for: PHVEN , AXH4BOI , PO2VEN , YJT3TMR , IONCALVEN CBC: Results from last 7 [...] 0339 05/14/25 0338 SODIUM (more content not included)...[facility] 05-16-2025 NotePhysical Therapy Patient defers session at this time due to significant fatigue and headache. Patient recently transferred out of MICU status post TAVR on 05/15. PT will check back at a later time to complete session.[facility] 05-16-2025 Note Attestation signed by García [...] Beth Age - 85 y.o. - 1940 [facility] # - [id number] Date of Admission - 05/10/2025 2:37 AM HPI/Hospital Course Subjective Nadir Beth is an 85 y.o. male with a PMH of HFpEF, paroxysmal A-fib on Xarelto, CVA, T2DM, hypertension, renal artery stenosis left renal stent, and hyperlipidemia who was admitted as a direct transfer from [facility] on 05/10/2025 for acute on chronic heart failure. 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 He presented to the ED on the advice of his physician following an increase in lower extremity edema with associated labs showing a BNP 6200. In the [facility] ED he was found to have pulmonary vascular congestion with right sided pleural effusion on chest x-ray, and found to be hypertensive at 190/68, initially managed medically with lasix and antihypertensives prior to transfer. At [facility] echo was performed which was [...] ABG: No results found for: PHART , QXO0MWM , PO2ART , NAB3DEE , IONCALART No results found for: PHVEN , BXD6BAP , PO2VEN , NOP5DTE , IONCALVEN CBC: Results from last 7 [...] 9.3* Cardiac: Results from (more content not included)...[facility] 05-16-2025 NoteOccupational Therapy Name: Nadir Beth [...] as appropriate. Check No Charge Time attempted: 1004[facility]07-02[facility] NoteCardiology Inpatient Progress Note Subjective Reason for consult: Acute on chronic HFpEF, hypertension urgency, TAVR. HPI: Nadir Beth is a 85 y.o. year old male with significant medical history of A-fib on Xarelto, hypertension, HFpEF, CKD, recent history of CVA 4 months back, renal artery stenosis transferred from [facility] for acute on chronic heart failure. Patient had history of stroke 4 months back and was in rehab patient has been having progressive lower extremity edema for few days. Patient was advised to increase his Lasix from 20 to 40 mg and blood work was done which showed BNP 6214 and was advised to go to the ED. In [facility] ED chest x-ray showed pulmonary vascular congestion [...] 95 % -- 0 (more content not included)...[facility]07-02-2025 NoteCardiothoracic Surgery Progress Note 05/16/2025 Room: [address] [place] [address] Subjective Nadir Beth is a 85 y.o. [...] (TTE) limited Result Date: 05/15/2025 1 [facility] Heart Station [address] [place] [address] [phone] (fax) Echocardiogram-[facility] Name: NADIR BETH Study Date: 05/15/2025 12:46 PM B/P: 171 mmHg/100 mmHg HR: 87 bpm Date of : 1940 Location: [facility] Height: 72 in. Age: 85 (more content not included)...[facility]07-01-2025 NoteName: Nadir Beth Date of : 1940 Today's Date: 05/15/25 Pt is unable to be seen for Physical Therapy at this time secondary to: per RN, pt currently off floor for TAVR. Will check back and complete therapy session as appropriate. Check No Charge Time attempted: 1515[facility]07-01-2025 Note Occupational Therapy Name: Nadir Beth Date of : 1940 Today's Date: 05/15/25 Pt is unable to be seen for therapy at this time secondary to Pt is off unit for TAVR. Will check back and complete therapy session as appropriate. Check No Charge Time attempted: 1501[facility]07-01-2025 NoteNot sure baseline kidney function, creatinine today 1.61 Will decrease Lasix to 40 mg dailyUnCorey Hospital07-01-2025 NoteAcute on chronic heart failure with [...] risk for CABG/AVR specially with history of CVAUniversselect medical [facility]07-01-2025 NoteHighest troponin went up to 26 Likely combination of chronic kidney disease and CHFUnCorey Hospital07-01-2025 NoteContinue ZetiaUnCorey Hospital 05-15-2025 NoteContinue sliding scale insulin A1c came back of 9.3[facility]07-01-2025 NoteContinue current clonidine 0.2/3 times daily, hydralazine 25/ 3 times daily and labetalolUnCorey Hospital07-01-2025 NoteCHADS2 DS vascular score is 7 currently on Xarelto Patient already on labetalolUnCorey Hospital07-01-2025 NoteOn aspirin and ZetiaUnCorey Hospital07-01-2025 NoteHospital Medicine Daily Progress Note - 05/15/2025 1:08 PM; Room: [address] [place] [address] Admission: 05/10/2025 2:37 AM; Length of stay: 5 days THE HOSPITALIST TEAM PREFERS TO USE [employer] FOR NON-URGENT COMMUNICATION 7AM-7PM. IF I DO NOT RESPOND WITHIN 20 MINUTES OR URGENT MATTERS, PLEASE CALL THROUGH THE GENERAL ACTIVITIES THERAPIST. FROM 7PM-7AM, PLEASE PAGE [phone](COVR). Code Status: Full Code Barriers to Discharge: [...] daily and labetalol Acute congestive heart failure ([facility]) Acute on chronic heart failure with [...] mellitus, with long-term current use of insulin ([facility]) Continue sliding scale insulin A1c came back of 9.3 Other hyperlipidemia Continue Zetia Chronic atrial fibrillation ([facility]) CHADS2 DS vascular score is 7 [...] last 7 days Lab (more content not included)...[facility]07-01-2025 NoteCardiology Inpatient Progress Note Subjective Reason for consult: Acute on chronic HFpEF, hypertension urgency, TAVR. HPI: Nadir Beth is a 85 y.o. year old male with significant medical history of A-fib on Xarelto, hypertension, HFpEF, CKD, recent history of CVA 4 months back, renal artery stenosis transferred from [facility] for acute on chronic heart failure. Patient had history of stroke 4 months back and was in rehab patient has been having progressive lower extremity edema for few days. Patient was advised to increase his Lasix from 20 to 40 mg and blood work was done which showed BNP 6214 and was advised to go to the ED. In [facility] ED chest x-ray showed pulmonary vascular congestion [...] TAVR today. 12-24 hour telemetry reviewed: A akira, 64-92 bpm. 05/14/2025: Patient seen evaluated bedside today. He appears in no acute distress, denies chest pain, shortness of breath, palpitations, lightheaded dizziness, or lower extremity edema. Tentative plan for TAVR tomorrow pending scheduling 12-24 hour telemetry reviewed: A akira, average 71 bpm. 05/13/2025: Patient seen and [...] (163 lb) SpO2 96% (more content not included)...[facility]07-01-2025 NotePatient: Nadir Beth Procedure Information Date/Time: 05/15/25 1100 Procedure: TAVR Location: [facility] MEDICINE AIDE 3 / [facility] VASCULAR [facility] (Cath) Providers: Claribel Cisneros MD [...] who consented to blood products. Additional Equipment RequestsAultman [facility]rville Hospital06-30-2025 Note Physical Therapy Physical Therapy Treatment [...] implement solutions Communication: (decreased communication with this FREIGHT AND PASSENGER AGENT d/t lethargy) General Assessment General Assessment Hearing: AGUA CALIENTE - family reports he has hearing aids [...] to a chair (in (more content not included)...[facility]06-30-2025 NotePatient was admitted to the hospital [...] Dias RN, BSN Cardiology Outpatient Coordinator Cardiopulmonary RehabUnCorey Hospital06-30-2025 NoteContinue ZetiaUnCorey Hospital06-30-2025 NoteOn aspirin and Zetia [facility]06-30-2025 NoteAcute on chronic heart failure with [...] grafting/AVR specially with history of [facility]AUniversity of [facility] 05-14-2025 NoteHighest troponin went up to 26 Likely combination of chronic kidney disease and CHFUnCorey Hospital06-30-2025 NoteContinue current clonidine 0.2/3 times daily, hydralazine 25/ 3 times daily and labetalolUnCorey Hospital06-30-2025 NoteCHADS2 DS vascular score is 7 currently on Xarelto Patient already on labetalolUnCorey Hospital06-30-2025 Note Not sure baseline kidney function, creatinine today 1.74 Will decrease Lasix to 40 mg dailyUnCorey Hospital06-30-2025 NoteContinue sliding scale insulin A1c came back of 9.3[facility]06-30-2025 NoteHospital Medicine Daily Progress Note - 05/14/2025 12:11 PM; Room: [address] [place] [address] Admission: 05/10/2025 2:37 AM; Length of stay: 4 days THE HOSPITALIST TEAM PREFERS TO USE [employer] FOR NON-URGENT COMMUNICATION 7AM-7PM. IF I DO NOT RESPOND WITHIN 20 MINUTES OR URGENT MATTERS, PLEASE CALL THROUGH THE GENERAL ACTIVITIES THERAPIST. FROM 7PM-7AM, PLEASE PAGE [phone](COVR). Code Status: Full Code Barriers to Discharge: [...] daily and labetalol Acute congestive heart failure ([facility]) Acute on chronic heart failure with [...] mellitus, with long-term current use of insulin ([facility]) Continue sliding scale insulin A1c came back of 9.3 Other hyperlipidemia Continue Zetia Chronic atrial fibrillation ([facility]) CHADS2 DS vascular score is 7 [...] prior to this (more content not included)... [facility]06-30-2025 NoteOccupational Therapy Occupational Therapy Treatment Patient [...] friendly and cooperative Session Comments: Upon arrival medical underwriter noted pts male purwick had leaked. [...] Assistance: Contact guard Static Sitting-Comment/Number of Minutes: Construction Administrator noted posterior lean while utilizing B UE's in bathing task. 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 HPI: Nadir Beth is a 85 y.o. year old male with significant medical history of A-fib on Xarelto, hypertension, HFpEF, CKD, recent history of CVA 4 months back, renal artery stenosis transferred from [facility] for acute on chronic heart failure. Patient had history of stroke 4 months back and was in rehab patient has been having progressive lower extremity edema for few days. Patient was advised to increase his Lasix from 20 to 40 mg and blood work was done which showed BNP 6214 and was advised to go to the ED. In [facility] chest x-ray showed pulmonary vascular congestion [...] No wheezes, rales (more content not included)... [facility]06-30-2025 Notedischarge planning: return to [facility] 0917 updates sent to [facility], via [employer] system [address]; notice sent to SNF, via [employer] system, with request to confirm bed availability today 1028 SNF has bed today but Discharge Order has been removed for Patient to have TAVR tomorrow; SNF notified via [employer] system discharge barriers: [] no insurance precert needed for SNF, but confirm bed at discharge [] [facility]06-30-2025 NoteSTS Scoring for Surgical AVR, plan [...] 31.3%, WBC Count: 10.18 10???/?L, Platelet Count: 759389 cells/?L PreOp Medications: Insulin diabetes control Risk Factors / Comorbidities: Insulin-dependent Diabetes Mellitus, Hypertension Vascular RF: Cerebrovascular Disease: CVA <= 30 days Cardiac Status: Chronic heart failure, Ejection Fraction = 50% Valve Disease: Aortic Stenosis, Mild AR, Mild MR Arrhythmia: Recent A-fib, ParoxysmalUnCorey Hospital 05-13-2025 NoteHighest troponin went up to 26 Likely combination of chronic kidney disease and CHFUnCorey Hospital06-29-2025 NoteNot sure baseline kidney function, creatinine today 1.65 [facility]06-29-2025 NoteCHADS2 DS vascular score is 7 currently on Xarelto Patient already on labetalolUnCorey Hospital06-29-2025 Note Continue ZetiaUnCorey Hospital06-29-2025 NoteAcute on chronic heart failure with [...] grafting/AVR specially with history of CVAUniversity of [facility] 05-13-2025 NoteContinue sliding scale insulin A1c came back of 9.3[facility]06-29-2025 NoteContinue current clonidine 0.2 3 times daily, hydralazine 25 3 times daily and labetalolUnCorey Hospital06-29-2025 NoteOn aspirin and Zetia [facility]06-29-2025 NoteHospital Medicine Daily Progress Note - 05/13/2025 10:51 AM; Room: [facility]- Admission: 05/10/2025 2:37 AM; Length of stay: 3 days THE HOSPITALIST TEAM PREFERS TO USE [employer] FOR NON-URGENT COMMUNICATION 7AM-7PM. IF I DO NOT RESPOND WITHIN 20 MINUTES OR URGENT MATTERS, PLEASE CALL THROUGH THE GENERAL ACTIVITIES THERAPIST. FROM 7PM-7AM, PLEASE PAGE [phone](COVR). Code Status: Full Code Barriers to Discharge: [...] mellitus, with long-term current use of insulin ([facility]) Continue sliding scale insulin A1c came back of 9.3 Other hyperlipidemia Continue Zetia Chronic atrial fibrillation ([facility]) CHADS2 DS vascular score is 7 [...] 05/11/2025 LDL 118 05/11/20 (more content not included)...[facility]06-29-2025 NoteCardiology Inpatient Progress Note Subjective Reason for consult: Acute on chronic HFpEF, hypertension urgency HPI: Nadir Beth is a 85 y.o. year old male with significant medical history of A-fib on Xarelto, hypertension, HFpEF, CKD, recent history of CVA 4 months back, renal artery stenosis transferred from [facility] for acute on chronic heart failure. Patient had history of stroke 4 months back and was in rehab patient has been having progressive lower extremity edema for few days. Patient was advised to increase his Lasix from 20 to 40 mg and blood work was done which showed BNP 6214 and was advised to go to the ED. In [facility] chest x-ray showed pulmonary vascular congestion [...] pulsations or distension. Bowel (more content not included)...[facility]06-28-2025 NoteCHADS2 DS vascular score is 7 currently on Xarelto Patient already on labetalolUnCorey Hospital06-28-2025 Note Not sure baseline kidney function, creatinine today 1.63[facility]06-28-2025 NoteContinue sliding scale insulin A1c came back of 9.3[facility]06-28-2025 NoteHighest troponin went up to 26 Likely combination of chronic kidney disease and CHFUnCorey Hospital06-28-2025 NoteAcute on chronic heart failure with [...] grafting/AVR specially with history of CVAUniversity of [facility] 05-12-2025 NoteContinue current clonidine 0.2 3 times daily, hydralazine 25 3 times daily and labetalolUnCorey Hospital06-28-2025 NoteContinue [facility]06-28-2025 NoteOn aspirin and [facility]06-28-2025 NoteHospital Medicine Daily Progress Note - 05/12/2025 12:25 PM; Room: [address] [place] [address] Admission: 05/10/2025 2:37 AM; Length of stay: 2 days THE HOSPITALIST TEAM PREFERS TO USE [employer] FOR NON-URGENT COMMUNICATION 7AM-7PM. IF I DO NOT RESPOND WITHIN 20 MINUTES OR URGENT MATTERS, PLEASE CALL THROUGH THE GENERAL ACTIVITIES THERAPIST. FROM 7PM-7AM, PLEASE PAGE [phone](COVR). Code Status: Full Code Barriers to Discharge: [...] mellitus, with long-term current use of insulin ([facility]) Continue sliding scale insulin A1c came back of 9.3 Other hyperlipidemia Continue Zetia Chronic atrial fibrillation ([facility]) CHADS2 DS vascular score is 7 [...] LDL 118 05/11/2025 No results found for: [id number] , IRON , TI (more content not included)... [facility]06-28-2025 Note Attestation signed by Nicole Reynolds [...] TAVR. Nicole Reynolds MD, ScM, MSc Cardiac Enhanced Environmental Operator Email: [email or web address] Nicole Reynolds MD, ScM, MSc Cardiac Enhanced Environmental Operator Email: [email or web address] Cardiology Progress Note Subjective Patient was examined [...] Bubble Study Result Date: 05/10/2025 1 1 [facility] Heart Station [address] [place] [address] [phone] (fax) Echocardiogram-[facility] Name: NADIR BETH Study Date: 05/10/2025 09:19 AM B/P: 178 mmHg/92 mmHg HR: 104 bpm Date of : 1940 Location: [facility] Height: 72 in. Age: 85 [...] 2D 24.6 ml/m2 LVO (more content not included)...[facility]06-27-2025 Note. No associated orders from this encounter found during lookback period of 72 hours.[facility]06-27-2025 NoteCOrders from past 72 hours: Case Request Guest Advisor: Coronary angiography, Right heart cath; Standing Cardiac catheterization; StandingUnCorey Hospital06-27-2025 NoteInsulin blood sugar check diet A1c came back of 9.3[facility]06-27-2025 NoteHighest troponin went up to 26 Likely combination of chronic kidney disease and CHFUnCorey Hospital06-27-2025 NoteNot sure baseline kidney function, creatinine today 1.56, will monitorUnCorey Hospital06-27-2025 NoteCHADS2 DS vascular score is 7 currently on Eliquis Patient on heparin drip and plan to switch on Eliquis after procedure Patient already [facility] Note Continue ZetiaUnCorey Hospital06-27-2025 NoteAcute on chronic heart failure with preserved EF BNP of 736 Echo 05/10 showed EF preserved. Moderate AAS and AR, mild MR and TR Patient scheduled for cardiac cath today Lasix 40 IV every 8 hours Continue goal-directed medical therapy Farxiga, labetalol, Aldactone Uptitrate meds after Cardiac cathUnCorey Hospital06-27-2025 NoteContinue current clonidine 0.2 3 times daily, hydralazine 25 3 times daily and labetalolUnCorey Hospital06-27-2025 NoteOn aspirin statin with deconditioning and gait abnormality with fall risk PT OT to see [facility]06-27-2025 NoteHospital Medicine Daily Progress Note - 05/11/2025 4:14 PM; Room: [address] [place] [address] Admission: 05/10/2025 2:37 AM; Length of stay: 1 days THE HOSPITALIST TEAM PREFERS TO USE [employer] FOR NON-URGENT COMMUNICATION 7AM-7PM. IF I DO NOT RESPOND WITHIN 20 MINUTES OR URGENT MATTERS, PLEASE CALL THROUGH THE GENERAL ACTIVITIES THERAPIST. FROM 7PM-7AM, PLEASE PAGE [phone](COVR). Code Status: Full Code Barriers to Discharge: [...] daily and labetalol Acute congestive heart failure ([facility]) Acute on chronic heart failure with [...] mellitus, with long-term current use of insulin ([facility]) Insulin blood sugar check diet A1c came back of 9.3 Other hyperlipidemia Continue Zetia Chronic atrial fibrillation ([facility]) CHADS2 DS vascular score is 7 [...] LDL 118 05/11/2025 No results found for: [id number] , IRON , TIBC , C3 , C4 , SHERRY , CANCA , ASO , PSA , CEA , CA125 , CA199 , AFP , CA153 Imaging Complete Echo (TTE) w/wo Imaging Agent, Strain, 3D, Bubble Study 1 [facility] Heart Station [address] [place] [address] [phone] (fax) Echocardiogram-[facility] Name: (more content not included)...[facility]06-27-2025 Notedischarge planning: to return to [facility] updates sent to [facility], via [employer] system discharge barriers: [] no insurance precert needed for any placement from this admission, but confirm bed still available before discharge [] [facility]06-27-2025 NoteCTA CHEST W IV CONTRAST 05/11/2025 [...] 3 cusped view, anterior view, and no RIGGING LOFT MECHANIC-CAU view are saved in 3-D volume rendered [...] of 26 mm Electronically signed: Yenni Stafford MD.[facility] Comment on above:Order Comment: Patient had pre procedure medications already for [id number] Note Attestation signed by Azeem Green MD at 05/11/2025 4:45 PM I personally saw and examined the patient on rounds and agree with the assessment and plan of the medical office supervisor Cardiology Progress Note Subjective Patient was examined [...] Bubble Study Result Date: 05/10/2025 1 1 [facility] Heart Station [address] [place], [place] [id number] (fax) Echocardiogram-[facility] Name: NADIR BETH Study Date: 05/10/2025 09:19 AM B/P: 178 mmHg/92 mmHg HR: 104 bpm Date of : 1940 Location: [facility] Height: 72 in. Age: 85 [...] The left atr (more content not included)... [facility]06-27-2025 NotePhysical Therapy Physical Therapy Treatment Patient [...] time General Assessment General Assessment Hearing: Mild AGUA CALIENTE Hand Dominance: Right Static Sitting Balance Static [...] Clicks T-Score: 18 Assessment/Plan PT Assessment PT Assessment/FREIGHT AND PASSENGER AGENT Summary: Patient is a 85 y/o male [...] Date LTG - Janay (more content not included)...[facility] 05-11-2025 NotePatient: Nadir Beth Procedure Information Date/Time: 05/11/25 1130 Procedures: Coronary angiography Right heart cath Location: [facility] MEDICINE AIDE 3 / [facility] (Cath) Providers: Aissatou Hughes MD [...] who consented to blood products. Additional Equipment RequestsUnCorey Hospital06-26-2025 Note Attestation signed by Landen Rice PT at 05/10/2025 3:50 PM This medical underwriter (PT) provided one-on-one supervision, direction of [...] an 85 y/o male admitted 05/10/25 from [facility] where he presented following outpatient labs [...] Intact General Assessment General Assessment Hearing: mild AGUA CALIENTE Hand Dominance: Right Home Living Home Living [...] Level of Function Prior Function Level of Bailey: Independent with ADLs and functional transfers, Independent [...] LE strength req (more content not included)... [facility]06-26-2025 Note05/10/25 1520 Admission Assessment Questions Verify [...] back? Yes Pharmacy Bedside Delivery Status Interested ([facility] in [facility]) Does the patient have a assistant case manager assigned to them through their insurance? No Living Arrangement (Current/Prior to Hospitalization) Private residence;Inpatient rehab facility (2 story house w/ 5 steps. Lives with his and she is able to help after discharge as needed. Came to us from [facility] x 3 weeks / [facility].) Does the patient have history of HHC or SNF? Yes (Hx HHC et Current SNF.) Assistive Device Walker;Wheelchair (@ [facility]. Walker at home.) Patient's goal for discharge [facility] Was patient reminded that goal for discharge is 11am? Yes Does the patient have transportation at discharge? No Type of Residence Inpatient [facility] health unit/facility Is PT/OT appropriate? Yes Is PT/OT ordered? No Is SW consult appropriate? Yes Is SW consult ordered? Yes Do you understand the benefits of MyChart? Yes Were you able to send link and activate MyChart? Yes Admission Assessment Completed with the patient's family members at his bedside. [facility]06-26-2025 NoteOccupational Therapy Occupational Therapy Evaluation Patient [...] Intact General Assessment General Assessment Hearing: (mild [place]) Hand Dominance: Right Home Living Home Living Type of Home: House Lives With: Spouse Home Adaptive Equipment: Walker rolling, Cane (sc, gb, [facility]) Home Layout: One level Home Access: Stairs to enter with rails (5) Bathroom Shower/Tub: Tub/shower unit Prior Level of Function Prior Function Level of Bailey: Independent with ADLs and functional transfers, Independent [...] Eating meals?: None (Independent) Total Score OT [facility]: 21 Assessment/Plan OT Assessment OT Impairments: [...] current use of insu (more content not included)...[facility]06-26-2025 NoteDaily Case Management Update Barriers to Discharge et per Progress Note: Transfer from [facility] for elevated BNP et BLE Edema. [...] Reason for OT? Answer: gait abnormality 05/10/25 0411[facility]06-26-2025 NotePer review of chart patient has diastolic heart failure had history of pericardial effusion as well we will optimize guideline directed medical therapy with limitation due to renal insufficiency obtain echocardiogram cycle troponins cardiology to see [facility]06-26-2025 NoteInsulin blood sugar check [facility]06-26-2025 Note Antilipemic agents dietUnCorey Hospital06-26-2025 NoteOn aspirin statin with deconditioning and gait abnormality with fall risk PT OT to see himUnCorey Hospital06-26-2025 NoteAdjust antihypertensives low-salt diet with renal insufficiency unable to start JAY or ARBUnCorey Hospital06-26-2025 NoteCHADS2 DS vascular score is 7 currently on Eliquis Chronic kidney disease stage IIIb avoid nephrotoxic meds hypovolemia nephrology consultUnCorey Hospital06-26-2025 NoteHospital Medicine History and Physical 05/10/2025 4:12 AM THE HOSPITALIST TEAM PREFERS TO USE [employer] FOR NON-URGENT COMMUNICATION 7AM-7PM. IF I DO NOT RESPOND WITHIN 20 MINUTES OR URGENT MATTERS, PLEASE CALL THROUGH THE GENERAL ACTIVITIES THERAPIST. FROM 7PM-7AM, PLEASE PAGE [phone](COVR). Chief Complaint No chief complaint on file. History of Present Illness Nadir Turner is an 85 y.o. male admitted as a direct transfer from [facility] where he presented following outpatient labs [...] pulses. Heart sounds: Normal heart sounds. Comments: [id number] s4 systolic murmur Pulmonary: Effort: Pulmonary effort [...] JAY or ARB Acute congestive heart failure ([facility]) Per review of chart patient has [...] mellitus, with long-term current use of insulin ([facility]) Insulin blood sugar check diet Other hyperlipidemia Antilipemic agents diet Chronic atrial fibrillation ([facility]) CHADS2 DS vascular score is 7 [...] this hospital stay by a member of [facility]. Past Medical History Medical History[1] Past Surgical History Surgical History[2] Social History Social History Socioeconomic History Marital status: Not on file Spouse name: Not on file Number of children: Not on file Years of education: Not on file Highest education level: Not on file Occupational History Not on file Tobacco Use Smoking status: Former Types: Cigarettes S (more content not included)...[facility]06-24-2025 History of Present illness Narrative* Mony [...] titration study Managed by Dr John in [place] * Mony Herron NP - 05/08/2025 2:00 [...] complaint on file. Appointment Note -- FU (U-[facility]) Patient is here today for post stroke [...] titration study Managed by Dr John in [place] Carotid stenosis, bilateral Plan redo US carotids 2026. Polyneuropathy (Continue current regimen.) No orders of the defined types were placed in this encounter. Follow-Up - No follow-ups on file. History of Present Illness, Associated Treatments and Results - Dx (JOSIAH) Tx OFF BiPAP @ 31/10 AEs Hx JOSIAH - (Per Dr. John, [facility]). Failed Semeiology Circadian Noct oxim PSG _ ([facility]) - _ PAPT ([facility]) - AHI=8.1 @ 31/10 (max pressure) MSLT [...] UBOs Tx ASA AEs Hx Recent adm [facility] for confusion. Now baseline. Images rev'd. No clear cognitive decline. Denies forgetting names, leaving tools/stove on, getting lost, etc. Onset Semeiology Imaging MR brain (02/2025, [facility]) - rev'd with pt - no report sent - on my review, atrophy mod-sev, 8-10 UBOs, most tiny, 2 mod incl R fro & R splenium CC MRA head (02/2025, [facility]) - no stenoses MRA neck (02/2025, [facility]) - no stenoses, dom R vert US carotids (02/2025, [facility]) - < 50% B by velocity, but mod plaque poss causing stenosis Testing Surgery Failed Dx L BASAL GANGLIA STROKE/WMD/ATROPHY Tx (Continue ASA, Xeralto ?, statin.) AEs Hx Onset 20698 AMS and garbled speech Semeiology To [facility]. CT and MRI showed stroke ? Subacute. Eliquis changed to Xeralto. DC to [facility] for Skilled therapy. Imaging CT Head (04/2025 [facility]) 8mm hypodensity in left caudate nucleus MRI Brain (04/2025 [facility]) Subacute left basal ganglia ischemia, mild WMD, moderate atrophy CTA H/N (04/2025 [facility]) 50% ICA stenosis B. Moderate M1 right MCA stenosis Testing Echo (04/2025 [facility]) EF 65-70%, Aortic sclerosis, severe PHT RSVP [...] 05/08/2025. [facility] ? [address] ? [place], [place] [address] ? ? fax Neurology ? Clinical Neurophysiology ? Epilepsy ? Sleep Disorders ? Clinical Informatics documented in this encounterThree Rivers [id number] NoteUT Cardiology [facility] Subjective Nadir Beth is a 85 y.o. year old male patient being seen for follow up CVA. Patient was in [place] for 4 days. Patient complains of HERNANDEZ and leg swelling, high blood sugars. Patient is at the [facility] for rehab. Patient Active Problem List Diagnosis [...] diuretic therapy. He was admitted to the [facility] in August 2022 due to hyponatremia, hyperkalemia and acute kidney injury, leukocytosis secondary to COVID-19 causing dehydration. I saw him on 05/24/2023 and the office and he had significant evidence of volume overload by exam and echocardiogram. I intensified his diuretic regimen. He ended up getting admitted to the [facility] with acute heart failure exacerbation and [...] On 02/14/2025 he was admitted to the [facility] with altered mental status. brain MRI showed multiple infarcts. He was seen by cardiology consult and Eliquis was changed to Xarelto. He then underwent a transesophageal echocardiogram that showed no evidence of intra cardiac thrombi. The aortic valve stenosis appeared to be severe. He was seen in the emergency room at the [facility] on 03/08/2025 with chest pain episode. He ruled out for myocardial infarction and was discharged. I last saw him on 03/12/2025 and decided to proceed with cardiac catheterization as part of his workup for aortic valve replacement. The procedure is scheduled for May 10, 2025. However in the interim he was admitted on 04/14/2025 to [facility] with apparent acute cerebrovascular accident. MRI showed possible small acute/subacute infarct. The clinical presentation was that of inability to speak. Relatively quickly. He was discharged back to rehab at the [facility] (more content not included)...[facility]06-16-2025 Note Discharge Summary Admission and Discharge Information Admit Date/Time:04/14/2025 19:37 Admitting Physician - Layne VERDUGO DO Consulting Physician - [facility] Wound, XXXX Admitting Diagnoses: Anxiety, 04/18/2025 Discharge [...] at discharge. Patient was accepted to the [facility] which patient will transfer there today [...] Discharge Disposition Discharge To, Anticipated II - Longterm Unit Discharged to - Other: [facility] [place] Discharge Diet Discharge Diet(s): Calorie Controlled- 1800 [...] BID Flomax, 0.4 m (more content not included)...[facility] CenterComment on above:Result Comment: Electronically Signed [...] deep vein thrombosis (DVT) prophylaxis (Z79.899: Other penitentiary (current) drug therapy) Resume Xarelto 11. History [...] conjunctiva, sclera clear E (more content not included)...[facility] CenterComment on above: Result Comment: Electronically Signed By: Anai URIARTE\.br\Date and Time Signed: 04/15/25 12:52 EDT\.br\Electronically Co-Signed By: Grey Carl III, DO.br\Date and Time Co-Signed: 04/23/25 07:20 [id number] Note Microbiology PROCEDURE: Blood Culture Charcoal [R1] SOURCE: Blood BODY SITE: Hand L COLLECTED DATE/TIME: 04/14/2025 18:05 EDT RECEIVED DATE/TIME: 04/14/2025 18:40 EDT START DATE/TIME: 04/14/2025 18:40 EDT FREE TEXT SOURCE: Indu Slaughter, Rivas Griggs M.D., Astrit H FINAL REPORTS Final Report [] Verified Date/Time: 04/21/2025 21:00 EDT No growth at 7 days. Performing Locations R1: This test was performed at: [facility], [address] [place] [address], [address] [place] [address], [address] [place], [place] [address]Comment on above:Performed By: #### [id number] #### [facility] [address] [place] [address] [id number] NoteMicrobiology PROCEDURE: Blood Culture Charcoal [R1] SOURCE: Blood BODY SITE: Hand R COLLECTED DATE/TIME: 04/14/2025 18:04 EDT RECEIVED DATE/TIME: 04/14/2025 18:41 EDT START DATE/TIME: 04/14/2025 18:41 EDT FREE TEXT SOURCE: Indu Slaughter, Rivas Griggs M.D., Astrit H FINAL REPORTS Final Report [] Verified Date/Time: 04/21/2025 21:00 EDT No growth at 7 days. Performing Locations R1: This test was performed at: [facility], [address] [place] [address], [address] [place] [address], [address] [place], [place] [address]Comment on above:Performed By: #### [id number] #### [facility] [address] [place] [address] [id number] NoteMicrobiology PROCEDURE: Blood Culture Charcoal [R1] SOURCE: [...] Locations R1: This [facility] performed at: [facility], [address] [place] [address], [id number] [place] [address], HcdtzoUniversity Hospitals Elyria Medical CenterComment on above:Performed By: #### [id number] #### [facility] [address] [place] [address] [id number] NoteMicrobiology PROCEDURE: Blood Culture Charcoal [R1] SOURCE: [...] Locations R1: This test was performed at: [facility], [address] [place] [address], [id number] [place] [address], QmbllcUniversity Hospitals Elyria Medical CenterComment on above:Performed By: #### [id number] #### [facility] [address] [place] [address] [id number] NoteGetWell Understands Education Yes GetWell Education Video Statins: Should You Take Them to Lower Your Risk? GetWell Learning Participants [facility]06-04-2025 NoteGetWell Education Video After a Stroke: Your Self-Care Plan GetWell Learning Participants Patient GetWell Understands Education [facility]06-04-2025 NoteGetWell Understands Education Yes GetWell Education Video After a Stroke: Taking an Antiplatelet GetWell Learning Participants [facility]06-04-2025 NoteGetWell Education Video After a Stroke: Taking an Antiplatelet GetWell Learning Participants Patient GetWell Understands Education [facility]06-04-2025 NoteGetWell Understands Education Yes GetWell Education Video Your Hospital Stay: Moving to Another Care Facility GetWell Learning Participants [facility]06-04-2025 NoteGetWell Understands Education GetWell Education Video Stroke: Fast facts [facility] Hospital[facility] Learning [facility]06-04-2025 NoteGetWell Understands Education GetWell Education Video Stroke: Fast facts GetWell Learning [facility]06-04-2025 NoteGetWell Understands Education Yes GetWell Education Video After a Hospital Stay: Managing Appointments GetWell Learning Participants [facility]06-04-2025 NoteGetWell Understands Education Yes GetWell Education Video Preventing Falls in the Hospital [facility] Learning Participants [facility]06-04-2025 NoteGetWell Understands Education Yes GetWell Education Video Avoiding Infections in the Hospital [facility] Learning Participants [facility]06-04-2025 NoteGetWell Learning Participants Patient GetWell Understands Education Yes GetWell Education Video What Is a Stroke?[facility]06-03-2025 Evaluation + Plan note Extracted from:Title:APSO [...] today patient is pending cardiac cath at [facility] towards the end of this month [...] vein thrombosis (DVT) prophylaxis (Z79.899: Other long distance operator (current) drug therapy) Resume Xarelto 11. [...] vein thrombosis (DVT) prophylaxis (Z79.899: Other long distance operator (current) drug therapy) 11. History of DVT in adulthood (Z86.718: Personal history of other venous thrombosis and embolism) Chronic constipation with overflow (K59.09: Other constipation) Extracted from:Title:Progress/SOAP NoteAuthor:Hanna GUSTAFSON, [facility] HospitalDate:04/16/25 1. CVA (cerebrovascular acci dent) (I63.9: Cerebral [...] vein thrombosis (DVT) prophylaxis (Z79.899: Other long distance operator (current) drug therapy) 11. History of [...] deep vein thrombosis (DVT) prophylaxis (Z79.899: Other penitentiary (current) drug therapy) Resume Xarelto 11. History of DVT in adulthood (Z86.718: Personal history of other venous thrombosis and embolism) Xarelto Extracted from:Title:APSO Note- NeurologyAuthor:Tonny OTERO, Preethi Armas:04/16/25 ASSESSMENT: His presentation is very concerning for [...] deep vein thrombosis (DVT) prophylaxis (Z79.899: Other penitentiary (current) drug therapy) 11. History of DVT in adulthood (Z86.718: Personal history of other venous thrombosis and embolism) Chronic constipation with overflow (K59.09: Other constipation) Extracted from:Title:Consult NoteAuthor:Hanna GUSTAFSON, [facility] HospitalDate:04/15/25 1. CVA (cerebrovascular acci dent) (I63.9: Cerebral [...] deep vein thrombosis (DVT) prophylaxis (Z79.899: Other penitentiary (current) drug therapy) 10. History of DVT in adulthood (Z86.718: Personal history of other venous thrombosis and embolism) Elevated troponin likely due to mismatch demand supply. Continue current management. Continue to trend. Obtain 2D echo. Treat acute issues. Aggressive risk factor control. Thank you for the consult discussed with the patient family at bedside. Extracted from:Title:Consult Note-NeurologyAuthor:Riaz OTERO, Stephanie Petrte:04/15/25 ASSESSMENT: His presentation is very concerning for [...] vein thrombosis (DVT) prophylaxis (Z79.899: Other long distance operator (current) drug therapy) Other obstructive and reflux uropathy (N13.8: Other obstructive and reflux uropathy) Pleural effusion (J90: Pleural effusion, not elsewhere classified) Extracted from:Title:Admission H & PAuthor:Layne VERDUGO DO RDate:04/14/25 1. CVA (cerebrovascular acci dent) (I63.9: Cerebral infarction, unspecified) Interventional neurology was consulted from the emergency department at [place]. They recommendedpatient started on a low intensity [...] vein thrombosis (DVT) prophylaxis (Z79.899: Other long distance operator (current) drug therapy) SCD, heparin Orders: albuterol, [...] Unit(s), Injection-Insulin, SubCutaneous, q6hrFT, Routine, Start date 250:00:00 EDT labetalol, 5 mg = 1 mL, [...] erythema or exudate. - POA. will consult [facility] care. bacitracinbid. Extracted from:Title:ED NoteAuthor:Indu Slaughter, Rivas HDate:04/14/25 1. CVA (cerebrovascular acci dent) (I63.9: [...] AM Scheduled Provider:LU OLMEDO PA-C Location:[facility] Appointment Type:URO Office Visit [facility] 06-03-2025 NoteProgress Note-Physician Assessment/Plan PLAN: 1. [...] today patient is pending cardiac cath at [facility] towards the end of this month [...] vein thrombosis (DVT) prophylaxis (Z79.899: Other long distance operator (current) drug therapy) Resume Xarelto 11. [...] Lymph Auto: 7.1 % Low (04/17/25 06:01:00) [place] Auto: 13.7 % (04/17/25 06:01:00) Eos Auto: 0.6 % (04/17/25 06:01:00) Basophil Auto: 0.6 % (04/17/25 06:01:00) Neutro Absolute: 7.7 E9/L High (04/17/25 06:01:00) Lymph Absolute: 0.7 E9/L Low (04/17/25 06:01:00) [place] Absolute: 1.4 E9/L High (06 (more content not included)...[facility] CenterComment on above:Result Comment: Electronically Signed By: Anai URIARTE\.mary\Date and Time Signed: 04/17/25 08:59 EDT\.br\Electronically Co-Signed By: Marc Fajardo DO.br\Date and Time Co- Signed: 04/17/25 13:29 [id number] NoteProgress Note-Physician Assessment/Plan ASSESSMENT: Acute to subacute [...] vein thrombosis (DVT) prophylaxis (Z79.899: Other long distance operator (current) drug therapy) 11. History of [...] both correctly = 0 Open and close eyes/packer sausage and wiener release hand: Obeys both correctly = 0 [...] MPV: 9.1 fL ( (more content not included)...[facility] Comment on above:Result Comment: Electronically Signed By: Pati Quinones RN\.br\Date and Time Signed: 04/17/25 09:21 EDT\.br\Electronically Co- Signed By: Ruy Molina DO\.br\Date and Time Co-Signed: 04/17/25 10:46 EDT 04-16-2025 NoteProgress Note-Physician Subjective Patient off floor for MRI. I did discuss the echo findings with the patient family. Patient family was advised to follow-up with his outpatient treating community relations liaison. Patient community relations liaison showed be able to get access to [...] Lymph Auto: 4.6 % Low (04/16/25 06:05:00) [place] Auto: 10.8 % (04/16/25 06:05:00) Eos Auto: 0.2 % (04/16/25 06:05:00) Basophil Auto: 0.1 % (04/16/25 06:05:00) Neutro Absolute: 12.3 E9/L High (04/16/25 06:05:00) Lymph Absolute: 0.7 E9/L Low (04/16/25 06:05:00) [place] Absolute: 1.6 E9/L High (04/16/25 06:05:00) Eos [...] mg/dL High (04/16/25 11:23:00) POC Device SN: [id number] (04/16/25 11:23:00) POC User ID: [id number] (04/16/25 11:23:00) POC Username: WICHO NORRIS (04/16/25 [...] deep vein thrombosis (DVT) prophylaxis (Z79.899: Other penitentiary (current) drug therapy) 11. History of DVT [...] loratadine 10 mg Tab, (more content not included)...[facility] Comment on above:Result Comment: Electronically Signed By: Hanna GUSTAFSON, Rebeca\.mary\Date and Time Signed: 04/16/25 12:15 [id number] NoteProgress Note-Physician Assessment/Plan PLAN: 1. CVA (cerebrovascular [...] vein thrombosis (DVT) prophylaxis (Z79.899: Other long distance operator (current) drug therapy) Resume Xarelto 11. History of DVT in adulthood (Z86.278: Personal history of other venous thrombosis and [...] Lymph Auto: 4.6 % Low (04/16/25 06:05:00) [place] Auto: 10.8 % (04/16/25 06:05:00) Eos Auto: 0.2 % (04/16/25 06:05:00) Basophil Auto: 0.1 % (04/16/25 06:05:00) Neutro Absolute: 12.3 E9/L High (04/16/25 06:05:00) Lymph Absolute: 0.7 E9/L Low (04/16/25 06:05:00) [place] Absolute: 1.6 E9/L High (04/16/25 06:05:00) Eos Absolute: 0 E9/L (04/16/25 06:05:00) Basophil Absolute: 0 E9/L (04/16/25 06:05:00) Glucose Lvl: 212 mg/dL High (04/16/25 06:05:00) BUN: 33 mg/dL High (04/16/25 06:05:00) Creatinine: 1.7 mg/dL High (04/16/25 06:05:00) eGFR: 39 mL/min/1.73 (more content not included)...[facility] Comment on above:Result Comment: Electronically [...] be managed by a specialist called an food service manager. Type 2 diabetes may be treated by [...] meet with a certified diabetes care and director of health education? What diabetes medicines do I need, and when should I take them? What equipment will I need to manage my diabetes at home? How often do I need to check my blood glucose? Where can I find a support group for people with diabetes? What number can I call if I have questions? When is my next appointment? General instructions Take mvyu-dlg-vfjjudb and prescription medicines only as told by your health care provider. Keep all follow-up visits. This is important. Where to find more information For help and guidance and for more information about diabetes, please visit: [place] [employer] Association (ADA): www.diabetes.org [place] [employer] of Diabetes Care and Education Specialists [...] provider. Document Revised: 01/26/2022 Document Reviewed: 01/26/2022 [employer] Patient Education 2023 [employer] 04/16/2025 09:29:43 Atrial Fibrillation Atrial Fibrillation [...] electrical signals of the heart. An ambulatory satellite project site monitor to record your heart's activity for [...] provider. Document Revised: 07/21/2023 Document Reviewed: 07/21/2023 [employer] Patient Education 2023 [employer]. 04/16/2025 09:29:43 Core Measures: Stroke (Cerebrovascular Accident) [facility], (Custom) Stroke (Cerebrovascular Accident) A stroke is [...] factors for stroke, work with your health lawn care worker to control them. High Blood Pressure: High [...] smoke: QUIT! We can help. Please call [employer] Smoking Cessation Program at [phone] ([facility]), or [phone], ext. [phone] Diabetes: Work with your healthcare professional to [...] cholesterol diet, you can call our Uri start up specialist at [phone] Ext. [phone]. The goal for total cholesterol is less [...] your risk of stroke with your health lawn care worker. TREATMENT TIME IS OF THE ESSENCE! Medications [...] Measures will be takento prevent short and penitentiary complications, including aspiration pneumonia, blood clots in [...] more information on strokes, log onto www.[facility].com or www.strokeassociation.org or call the [place] [employer] Association at [phone]. Revised 11/2018 Follow Up Care 04/14/2025 16:54:01 With:Neurology Address: [phone] When:2 to 4 weeks Comments:Call for followup appointment [facility] 06-02-2025 NoteEchocardiology Procedure Exam Date/Time Accession # Ordering Echo Transthoracic 04/16/2025 10:06 EDT [id number] PEPE AGFelton KWONG CPT code [id number] Reason for Exam (Echo Transthoracic Complete) CVA Report [facility] [address] [place] [address] Adult Echocardiogram Report Name: NADIR BETH Study Date: 04/16/2025 09:15 AM BP: 172/80 mmHg Patient Location: [address] [place] [address] Bed(s) [facility] HR: 94 : 1940 Gender: Male Height: 71.5 in Age: 85 yrs Ethnicity: [facility] Weight: 168 lb Reason For Study: [...] Rebeca Ferreira MD Transcribed by: ROBER Technologist: [facility]06-02-2025 Note Progress Note-Physician Assessment/Plan ASSESSMENT: His presentation [...] deep vein thrombosis (DVT) prophylaxis (Z79.899: Other penitentiary (current) drug therapy) 11. History of DVT [...] Both incorrect = 1 Open and close eyes/packer sausage and wiener release hand: Obeys both correctly = 0 [...] Lymph Auto: 4.6 % Low (04/16/25 06:05:00) [place] Auto: 10.8 % (04/16/25 06:05:00) Eos Auto: 0.2 % (04/16/25 06:05:00) Basophil Auto: 0.1 % (04/16/25 06:05:00) Neutro Absolute: 12.3 E9/L High (04/16/25 06:05:00) Lymph Absolut (more content not included)...[facility]:Result Comment: Electronically Signed By: Preethi Lancaster RN\.br\Date and Time Signed: 04/16/25 07:32 EDT\.br\Electronically Co-Signed By: Ruy Molina DO\.br\Date and Time Co-Signed: 04/16/25 09:47 [id number] Note Interdisciplinary Note - PT PT Evaluation done this date. Pt. with on AM-PAC this date. Min Ax1 and FWW with all activityfor safety. Recommend SNF at this time, will continue to follow.[facility]06-01-2025 NoteInterdisciplinary Note - PT PT evaluation order received. Pt has an MRI still pending and as per nursing should be on hold for today. Will attempt tomorrow.[facility] 04-15-2025 NoteConsultation Note Chief Complaint [...] Patient's daughter Valerie is healthcare power of state attorney. She was on the phone. She states that for the time being she would like patient to be a full code. She will discuss this with her family and notify us if she makes any changes. Family does note that patient was admitted for a stroke at [facility] about 6 weeks ago. They state [...] is obtained. He does follow-up with outpatient community relations liaison. Review of Systems As per [facility] Physical Exam Vitals & Measurements T: 37.3 [...] deep vein thrombosis (DVT) prophylaxis (Z79.899: Other penitentiary (current) drug therapy) 10. History of DVT [...] hernia repair, Tonsillectomy. Medications (more content not included)...[facility] on [facility]:Result Comment: Electronically Signed By: Hanna GUSTAFSON, Rebeca\.br\Date and Time Signed: 04/15/25 09:39 [id number] NoteConsultation Note Chief Complaint AMS Reason for [...] was admitted for stroke workup at the [facility] about a month and a half [...] Both incorrect = 2 Open and close eyes/packer sausage and wiener release hand: Obeys both correctly = 0 [...] 9. DM2 (diabetes elio (more content not included)...[facility] Comment on above:Result Comment: Electronically Signed By: Stephanie Mello RN\.br\Date and Time Signed: 04/15/25 06:55EDT\.br\Electronically Co-Signed By: Ruy Molina DO\.br\Date and Time Co-Signed: 04/15/25 09:37 [id number] Note History and Physical Basic Information Admit [...] Patient's daughter Valerie is healthcare power of state attorney. She was on the phone. She states that for the time being she would like patient to be a full code. She will discuss this with her family and notify us if she makes any changes. Family does note that patient was admitted for a stroke at [facility] about 6 weeks ago. They state [...] other details. NIH Stroke Scale/Score (NIHSS) from [employer] on 04/14/2025 All calculations should be rechecked [...] Lymph Auto: 7.8 % Low (04/14/25 17:08:00) [place] Auto: 9.9 % (04/14/25 17:08:00) Eos Auto: 1.5 % (04/14/25 17:08:00) Basophil Auto: 0.8 % (04/14/25 17:08:00) Neutro Absolute: 6.5 E9/L (04/14/25 17:08:00) Lymph Absolute: 0.6 E9/L Low (04/14/25 17:08:00) [place] Absolute: 0.8 E9/L (04/14/25 17:08:00) Eos Absolute: 0.1 E9/L (04/14/25 17:08:00) Basophil Absolute: 0.1 E9/L (04/14/25 17:08:00) PT: 11 second(s) (04/14/25 17:08:00) INR: 0.98 (04/14/25 17:08:00) PTT: 33.3 second(s) (04/14/25 17:08:00) Glucose Lvl: 245 mg/dL High (04/14/25 17:08:00) BUN: 28 mg/dL High (04/14/25 17:08:00) Creatinine: 1.8 mg/dL High (04/14/25 17:08:00) eGFR: 36 mL (more content not included)...[facility] Center[facility] on [facility]:Result Comment: Electronically Signed By: Layne VERDUGO DO\Date and Time Signed: 04/15/25 02:30 [id number] NoteHistory and Physical Basic Information Admit Date/Time:04/14/2025 [...] Patient's daughter Valerie is healthcare power of state attorney. She was on the phone. She states that for the time being she would like patient to be a full code. She will discuss this with her family and notify us if she makes any changes. Family does note that patient was admitted for a stroke at [facility] about 6 weeks ago. They state [...] to obtain due to mental status. Scoring Lpoez Fall Risk Score: 70 High (04/14/25) Physical [...] other details. NIH Stroke Scale/Score (NIHSS) from [employer] on 04/14/2025 All calculations should be rechecked [...] Lymph Auto: 7.8 % Low (04/14/25 17:08:00) [place] Auto: 9.9 % (04/14/25 17:08:00) Eos Auto: 1.5 % (04/14/25 17:08:00) Basophil Auto: 0.8 % (04/14/25 17:08:00) Neutro Absolute: 6.5 E9/L (04/14/25 17:08:00) Lymph Absolute: 0.6 E9/L Low (04/14/25 17:08:00) [place] Absolute: 0.8 E9/L (04/14/25 17:08:00) Eos Absolute: 0.1 E9/L (04/14/25 17:08:00) Basophil Absolute: 0.1 E9/L (04/14/25 17:08:00) PT: 11 second(s) (04/14/25 17:08:00) INR: 0.98 (04/14/25 17:08:00) PTT: 33.3 second(s) (04/14/25 17:08:00) Glucose Lvl: 245 mg/dL High (04/14/25 17:08:00) BUN: 28 mg/dL High (04/14/25 17:08:00) Creatinine: 1.8 mg/dL High (04/14/25 17:08:00) eGFR: 36 mL (more content not included)...[facility] Center[facility] on [facility]:Result Comment: Electronically Signed By: Layne VERDUGO DO\Date and Time Signed: 04/14/25 22:32 [id number] History of Present illness Narrative* Blaise Chicas, LUIS E - 04/12/2025 11:20 AM EDT Patient: Nadir Joy Beth : [...] Partner Violence: Unknown (01/06/2024) Received from [facility] Safety & Environment Fear of Current or [...] and negative PT pedal pulses NEURO: 5.07 [place] [employer] monofilament test diminished to digits and forefoot bilaterally 125Hz tuning fork diminished to 1st MPJ bilaterally ORTHO: Positive pain on palpation to nails 1 through 10 Minimal pain on palpation of right foot lesion ASSESSMENT 1. Verruca plantaris 2. Foot pain, right 3. Diabetes mellitus due to underlying condition with diabetic polyneuropathy, unspecified whether penitentiary insulin use ([facility]) 4. 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 History of Present Illness, Associated Treatments and Results - Dx (JOSIAH) Tx BiPAP @ 31/10 AEs Hx JOSIAH - [facility] Failed Semeiology Circadian Noct oxim PSG _ ([facility]) - _ PAPT ([facility]) - AHI=8.1 @ 31/10 (max pressure) MSLT [...] UBOs Tx ASA AEs Hx Recent adm [facility] for confusion. Now baseline. Images rev'd. No clear cognitive decline. Denies forgetting names, leaving tools/stove on, getting lost, etc. Onset Semeiology Imaging MR brain (02/2025, [facility]) - rev'd with pt - no report sent - on my review, atrophy mod-sev, 8-10 UBOs, most tiny, 2 mod incl R fro & R splenium CC MRA head (02/2025, [facility]) - no stenoses MRA neck (02/2025, [facility]) - no stenoses, dom R vert US carotids (02/2025, [facility]) - < 50% B by velocity, but [...] Barrie Montoya M.D. [facility] ? [address] ? [place], [place] [address] ? ? fax Neurology ? Clinical Neurophysiology ? Epilepsy ? Sleep Disorders ? Clinical Informatics documented in this encounterThree Rivers HealthcareZwpxckgidw04-66-1421 NoteUT Cardiology - [facility] Subjective Nadir Beth is a [...] diuretic therapy. He was admitted to the [facility] in August 2022 due to hyponatremia, hyperkalemia and acute kidney injury, leukocytosis secondary to COVID-19 causing dehydration. I saw him on 05/24/2023 and the office and he had significant evidence of volume overload by exam and echocardiogram. I intensified his diuretic regimen. He ended up getting admitted to the [facility] with acute heart failure exacerbation and [...] On 02/14/2025 he was admitted to the [facility] with altered mental status. brain MRI showed multiple infarcts. He was seen by cardiology consult and Eliquis was changed to Xarelto. He then underwent a transesophageal echocardiogram that showed no evidence of intra cardiac thrombi. The aortic valve stenosis appeared to be severe. He was seen in the emergency room at the [facility] on 03/08/2025 with chest pain episode. [...] Review of Systems Cardiovascu (more content not included)...[facility] 02-28-2025 NotePatient: Nadir Beth Procedure Information Date/Time: 02/28/25 1230 Procedure: TRANSESOPHAGEAL ECHO (MARK) Location: [facility] Vascular Lab Clinical information reviewed: Allergies Meds Physical Exam Airway Mallampati: III Cardiovascular Dental Pulmonary Abdominal Anesthesia Plan ASA 3 other (Conscious sedation) intravenous induction Anesthetic plan and risks discussed with patient. Use of blood products discussed with patient who consented to blood products. Plan discussed with attending and fellow. Additional Equipment RequestsA[facility]man [facility]02-19-2025 Note Attestation with edits by Ruthie Linda MD at 01/03/2025 10:36 PM I saw, interviewed, examined and evaluated the patient with Nephrology fellow Dr. Jeff Reyes. I participated in the medical management of the patient. I reviewed the fellow's note and agree with the fellow's documentation in the note. Ruthie Linda MD Faculty, Division of Nephrology, Department of Medicine, [facility]. [facility] Patient: Nadir Beth; 84 y.o. Visit date: 01/03/25 Reason for today's visit: Follow up for CKD stage 3, Hypertension, Edema/ Fluid overload, and Electrolytes disturbances SUBJECTIVE: BACKGROUND: Nadir Beth is a 84 y.o. male has a past medical history of Atrial fibrillation ([facility]), CHF (congestive heart failure) ([facility]), Chronic kidney disease, COPD (chronic obstructive pulmonary disease) ([facility]), Coronary artery disease, Diabetes mellitus ([facility]), Heart valve disease, Hypertension, Pericardial effusion, and Sleep apnea. History of paroxysmal atrial fibrillation maintained on anticoagulation with Eliquis, aortic stenosis, renal artery stenosis, and hypertension. He had stenting of the left renal artery from the left radial approach on 05/01/2015 (Express SD 6 mm x 18 mm stent). He was admitted to the [facility] in August 2022 due to hyponatremia, [...] tablet by mouth in (more content not included)...[facility]01-30-2025 NoteUT Cardiology - [facility] Subjective Nadir Beth is a [...] diuretic therapy. He was admitted to the [facility] in August 2022 due to hyponatremia, hyperkalemia and acute kidney injury, leukocytosis secondary to COVID-19 causing dehydration. I saw him on 05/24/2023 and the office and he had significant evidence of volume overload by exam and echocardiogram. I intensified his diuretic regimen. He ended up getting admitted to the [facility] with acute heart failure exacerbation and [...] Physical Exam Constitutional: Appear (more content not included)...[facility] 12-04-2024 Hospital Discharge instructions Patient Education [...] urethra. Follow these instructions at home: Take lklz-wob-hvbtzms and prescription medicines only as told by [...] provider. Document Revised: 05/20/2022 Document Reviewed: 05/20/2022 [employer] Patient Education 2023 [employer] Follow Up Care 10/23/2024 15:10:45 With:MARQUIS LOUISE MD, URL Address: When:Within 6 Month(s) Comments:Can see neisha BOBBY/FABIO [facility] 01-20-2025 NotePatient Education Urology Benign Prostatic Hyperplasia [...] Follow these instructions at home: ??? Take xqrj-vsv-dwwsfla and prescription medicines only as told by [...] not get (more content not included)...[facility]01-16-2025 History of Present illness Narrative* Blaise Marroquin Dao, DPM - 11/30/2024 8:40 AM EST Patient: [...] keratosis Basal cell carcinoma COVID-19 11/22/2020 Diabetes ([facility]) Medications: Current Outpatient Medications: acyclovir (Zovirax) [...] and negative PT pedal pulses NEURO: 5.07 [place] [employer]on monofilament test diminished to digits and forefoot bilaterally 125Hz tuning fork diminished to 1st MPJ bilaterally ORTHO: Positive pain on palpation to nails 1 through 10 Minimal pain on palpation of right foot lesion ASSESSMENT 1. Verruca plantaris 2. Foot pain, right 3. Diabetes mellitus due to underlying condition with diabetic polyneuropathy, unspecified whether long distance operator insulin use ([facility]) 4. Pain due to onychomycosis of [...] gear Blaise Chicas DPM documented in this encounterThree Rivers [id number] Hospital Discharge instructions Patient Education 11/02/2024 08:25:18 [...] Follow these instructions at home: Medicines Take qjly-oal-mptmgbg and prescription medicines only as told by [...] or the blood stops without treatment. Take qwym-vsq-rpwazek and prescription medicines only as told by your health care provider. Drink enough fluid to keep your urine pale yellow. This information is not intended to replace advice given to you by your health care provider. Make sure you discuss any questions you have with your health care provider. Document Revised: 07/02/2021 Document Reviewed: 07/02/2021 [employer] Patient Education 2023 [employer]. Follow Up Care 10/30/2024 15:26:17 With:MARQUIS LOUISE MD, ADAN Address: When: Unknown [facility] 12-19-2024 NotePatient Education Urology Hematuria, Adult Hematuria [...] these instructions at home: Medicines ??? Take bzjd-fsp-kwoiuxf and prescription medicines only as told by [...] the blood stops without treatment. ??? Take owzp-tha-wqwapnt and prescription medicines only as told by your health care provider. ??? Drink enough fluid to keep your urine pale yellow. This information is not intended to replace advice given to you by your health care provider. Make sure you discuss any questions you have with your health care provider. Document Revised: 07/02/2021 Document Reviewed: 07/02/2021 [employer] Patient Education ? 2023 [employer].[facility] 10-23-2024 Hospital Discharge instructions Patient [...] urethra. Follow these instructions at home: Take bwii-kvy-xsqmalh and prescription medicines only as told by [...] away. Do not drive yourself to the [facility]. Summary Benign prostatic hyperplasia (BPH) is an [...] provider. Document Revised: 05/20/2022 Document Reviewed: 05/20/2022 [employer] Patient Education 2023 [employer]. [facility] 12-09-2024 NotePatient Education Urology Benign Prostatic [...] Follow these instructions at home: ??? Take lbdy-llm-filwbfk and prescription medicines only as told by [...] not get (more content not included)...[facility]11-18-2024 NotePatient Education Urology Benign Prostatic [...] Follow these instructions at home: ??? Take neuq-tkk-sgfhiwa and prescription medicines only as told by [...] not get (more content not included)...[facility]11-11-2024 Hospital Discharge instructions Patient Education [...] urethra. Follow these instructions at home: Take ykpu-aso-ofbmzle and prescription medicines only as told by [...] provider. Document Revised: 05/20/2022 Document Reviewed: 05/20/2022 [employer] Patient Education 2023 [employer]. Follow Up Care 09/01/2024 09:55:03 With:MARQUIS LOUISE Address: [place] [address]- [phone] Business (1) When: Unknown Comments:Follow-up in the office in 2 weeks to discuss next plan With:MARQUIS LOUISE Address: [place] [address]- [phone] Business (1) When: Unknown [facility] 11-11-2024 Evaluation + Plan noteExtracted from:Title: Cysto, TRUSAuthor:MARQUIS LOUISE MDDate:09/25/24 Impression and Plan Counseled: Family. Future Appointments Appointment Date:10/02/2024 11:00:00 AM Scheduled Provider:MARQUIS LOUISE MD Location:[facility] Appointment Type:URO Office Visit Future Scheduled Tests Laboratory* CBC w/ Auto Diff 10/01/23 * Comprehensive Metabolic Panel 10/01/23 * Thyroid Stimulating Hormone 10/01/23 [facility] 11-11-2024 NotePatient Education Urology Benign Prostatic [...] Follow these instructions at home: ??? Take ufvk-mbm-tetiyhu and prescription medicines only as told by [...] not get (more content not included)...[facility]10-31-20[facility] History of Present illness Narrative* Blaise Chicas [...] Violence: Unknown (01/06/2024) Received from [facility] [place] [facility] Environment Fear of [...] and negative PT pedal pulses NEURO: 5.07 [place] [employer]on monofilament test diminished to digits and forefoot bilaterally 125Hz tuning fork diminished to 1st MPJ bilaterally ORTHO: Positive pain on palpation to nails 1 through 10 Minimal pain on palpation of right foot lesion ASSESSMENT 1. Verruca plantaris 2. Foot pain, right 3. Diabetes mellitus due to underlying condition with diabetic polyneuropathy, unspecified whether long distance operator insulin use ([facility]) 4. Pain due to onychomycosis of [...] gear Blaise Chicas DPM documented in this encounterThree Rivers [id number] History of Present illness Narrative* Rodney Joy [...] Forehead, Right Hand - Posterior, Right [place], Right Wrist - Posterior Erythematous scaly papules [...] limited to risks of scarring, darker or carbonizer tester pigmentary changes, recurrence, incomplete removal and [...] Forehead, Right Hand - Posterior, Right [place], Right Wrist - Posterior 3. Lentigines (2) [...] Next Visit: 1 year documented in this encounterThree Rivers [id number] Telephone encounter Note* Telephone Encounter - Sammy Esposito - 08/17/2024 11:54 AM EDT Spoke with advised her of Dr. Montoya's answer and if he had any issues to call back. Three Rivers HealthcareBpfvrvqzhq25-84-0924 Miscellaneous Notes* Telephone Encounter - Sammy Esposito [...] asleep at the table. documented in this encounterThree Rivers [id number] Telephone encounter Note* Telephone Encounter - Sammy [...] after he fell asleep at the table. [id number] Hospital Discharge instructions Patient Education 08/08/2024 10:44:33 [...] including vitamins, herbs, eye drops, creams, and adwa-wxv-rbpjgdm medicines. Any problems you or family members [...] provider tells you to take them. Taking rbqy-cui-lverjtf medicines, vitamins, herbs, and supplements. Tests You [...] Follow these instructions at home: Medicines Take cqbe-mmy-ilwvglw and prescription medicines only as told by [...] provider. Document Revised: 07/15/2022 Document Reviewed: 06/13/2021 [employer] Patient Education 2023 MyWebzz. Follow Up Care 08/07/2024 08:55:26 With:MARQUIS LOUISE MD, URL Address: When: Unknown [facility] 09-24-2024 NotePatient Education Urology Cystoscopy Cystoscopy is [...] including vitamins, herbs, eye drops, creams, and yfau-uqb-odhainz medicines. ? Any problems you or family [...] tells you to take them. ? Taking asbz-ows-evezord medicines, vitamins, herbs, and supplements. Tests You [...] these instructions at home: Medicines ? Take qcjq-dpu-vvgmapr and prescription medicines only as told by [...] care provider, (more content not included)...[facility]09-19-2024 History of Present illness Narrative* Blaise Chicas, MARIIM - 08/03/2024 8:50 AM EDT Patient: Nadir [...] keratosis Basal cell carcinoma COVID-19 11/22/2020 Diabetes ([facility]/HCC) Medications: Current Outpatient Medications: acyclovir (Zovirax) [...] Violence: Unknown (01/06/2024) Received from [facility] [place] [facility] [place] Fear of [...] and negative PT pedal pulses NEURO: 5.07 [place] monofilament test diminished to digits and [...] daily Blaise Chicas DPM documented in this encounterThree Rivers [id number] History of Present illness Narrative* Barrie Montoya [...] AEs Hx JOSIAH - (Per Dr. John, [facility]). Failed Semeiology Circadian Noct oxim PSG _ ([place]) - _ PAPT ([place]) - AHI=8.1 @ 31/10 (max pressure) MSLT [...] 08/01/2024. Barrie Montoya M.D. documented in this encounterThree Rivers [id number] History of Present illness Narrative* Blaise Chicas, LUIS E - 07/20/2024 8:30 AM EDT Patient: Nadir Beth : 1940 PCP: Van Youssef MD SUBJECTIVE Ndair Beth 84 y.o. presents today for follow [...] Violence: Unknown (01/06/2024) Received from [facility], [facility] [place] Fear of [...] and negative PT pedal pulses NEURO: 5.07 [place] monofilament test diminished to digits and [...] office Blaise Chicas DPM documented in this encounterThree Rivers [id number] History of Present illness Narrative* Blaise Chicas DPM - 07/06/2024 8:40 AM EDT Patient: Nadir Beth : 1940 PCP: Van Youssef MD SUBJECTIVE Patient presents today for follow-up of dry skin and fissures to feet and has been using prescribedor recommended ogto-rtx-nxggibe cream with positive improvement. Patient presents today [...] Violence: Unknown (01/06/2024) Received from [facility], [facility] [place] Fear of [...] and negative PT pedal pulses NEURO: 5.07 [place] monofilament test diminished to digits and forefoot bilaterally 125Hz tuning fork diminished to 1st MPJ bilaterally ORTHO: Positive pain on palpation to nails 1 through 10 Minimal pain on palpation of right foot lesion ASSESSMENT 1. Verruca plantaris 2. Foot pain, right 3. Diabetes mellitus due to underlying condition with diabetic polyneuropathy, unspecified whether penitentiary insulin use ([facility]) 4. Onychomycosis 5. Toe pain, bilateral [...] office Blaise Chicas DPM documented in this encounterThree Rivers [id number] Hospital Discharge instructions Patient Education 10/14/2023 15:05:48 [...] as fried or sweet foods. These include finnish fries, hamburgers, cookies, candies, and soda. Drink enough fluid to keep your urine pale yellow. General instructions Exercise regularly or as told by your health care provider. Try to do 150 minutes of moderate exercise each week. Use the bathroom when you have the urge to go. Do not hold it in. Take tuoh-jto-kembtog and prescription medicines only as told by [...] to keep your urine pale yellow. Take ypac-ukm-occqyjv and prescription medicines only as told by your health care provider. This includes any fiber supplements. This information is not intended to replace advice given to you by your health care provider. Make sure you discuss any questions you have with your health care provider. Document Revised: 09/18/2020 Document Reviewed: 09/18/2020 [employer] Patient Education 2022 MyWebzz. Follow Up Care 10/01/2023 12:57:46 With:Nereyda Gomez CNP Address: When:1 month [facility] 11-17-2023 Hospital Discharge instructions [...] Bulgur wheat. Millet. Quinoa. Bran muffins. Popcorn. Hoople wafer crackers. Meats and other proteins Basalt beans, kidney beans, and mendez beans. Soybeans. [...] Cream cheese. Sour cream. Fats and oils [place]. Beverages Soft drinks. Other foods Cakes and [...] provider. Document Revised: 03/06/2021 Document Reviewed: 03/06/2021 [employer] Patient Education 2022 MyWebzz. Follow Up Care 09/20/2023 08:43:45 With:Nereyda Gomez CNP Address:Unknown When: Unknown [facility] 11-17-2023 Evaluation + Plan note Future Scheduled Tests Laboratory* CBC w/ Auto Diff 10/01/23 * Comprehensive Metabolic Panel 10/01/23 * Thyroid Stimulating Hormone 10/01/23 [facility] 07-27-2023 Hospital Discharge instructions Patient Education 06/10/2023 [...] hard liquor (44 mL). General instructions Take mfhj-gtg-kaqexbs and prescription medicines only as told by [...] provider. Document Revised: 02/19/2021 Document Reviewed: 02/19/2021 [employer] Patient Education 2022 MyWebzz. Follow Up Care 04/13/2023 14:39:27 With:Nereyda Gomez CNP Address: When:3 months [facility] 05-30-2023 Hospital Discharge instructions [...] including vitamins, herbs, eye drops, creams, and vexe-cqp-xeqpuyp medicines. Any problems you or family members [...] provider tells you to take them. Taking xqfq-yek-zqvoksk medicines, vitamins, herbs, and supplements. General instructions [...] provider. Document Revised: 10/26/2022 Document Reviewed: 06/24/2022 [employer] Patient Education 2022 MyWebzz. Follow Up Care 04/09/2023 11:27:16 With:Nereyda Gomez CNP Address: When:1 month [facility] 09-03-2022 NoteEXAM: [place] KARI [...] Electronically authenticated by: PREETI ROBERTS Date: 2022-07-18 09:05[facility]07-26-2022 Hospital Discharge instructions Patient Education 06/09/2022 [...] per serving. Talk with a diet and print support specialist (dietitian) if you have questions about [...] Bulgur wheat. Millet. Quinoa. Bran muffins. Popcorn. [place] wafer crackers. Meats and other proteins [place]alt, kidney, and mendez beans. Soybeans. Split peas. [...] Cream cheese. Sour cream. Fats and oils [place]. Beverages Soft drinks. Other foods Cakes and [...] 11/01/2006 Document Revised: 09/05/2018 Document Reviewed: 09/05/2018 [employer] Patient Education 2020 MyWebzz. 06/09/2022 10:13:34 Hemorrhoids Hemorrhoids Hemorrhoids are swollen [...] 3 times a day. General instructions Take cflz-zxe-jluxxep and prescription medicines only as told by [...] 10/29/2001 Document Revised: 03/29/2020 Document Reviewed: 03/23/2019 [employer] Patient Education 2020 MyWebzz. 06/09/2022 10:13:31 Diverticulosis Diverticulosis Diverticulosis is a [...] overweight. Not getting enough exercise. Smoking. Taking aoop-vfa-smnbmgt pain medicines, like aspirin and ibuprofen. Having [...] health care provider or your diet and print support specialist (dietitian). ?Take a fiber supplement or probiotic, if your health care provider approves. Take hoji-toq-cwjsuie and prescription medicines only as told by [...] 07/29/2005 Document Revised: 10/14/2018 Document Reviewed: 09/20/2017 [employer] Patient Education 2020 MyWebzz. 06/09/2022 10:13:30 Colon Polyps Colon Polyps Polyps [...] 07/28/2005 Document Revised: 02/16/2019 Document Reviewed: 02/16/2019 [employer] Patient Education 2020 MyWebzz. Follow Up Care 05/13/2022 14:18:17 With:Nereyda Gomez CNP Address: When:1 year only if needed [facility] 06-27-2022 Evaluation + Plan noteExtracted from:Title: Anesthesia post op endoAuthor:Rodger Gr MDate:05/11/22 Plan Transfer/ Discharge: Patient can be discharged from PACU when criteria met. Condition good. Extracted from:Title:Anesthesia Pre-Op endo 2Author:Rodger Gr MDate: 05/11/22 Plan [place] [employer] Anesthesiologists (ASA) physical status classification: [...] the heart and lungs, allergic reactions, and ..[facility]06-27-2022 Hospital Discharge instructions Patient Education 05/11/2022 [...] 07/28/2005 Document Revised: 02/16/2019 Document Reviewed: 02/16/2019 [employer] Patient Education 2020 MyWebzz. 05/11/2022 11:13:39 Diverticulosis MAGR (CUSTOM) Diverticulosis Many [...] unsweetened, w/added ascorbic acid 1 cup 0.5 [place] 1 cup 0.7 Vegetables Cooked Green beans 1 cup 4.0 Carrots 1/2 cup sliced 2.3 Peas 1 cup 8.8 Potato (baked, with skin) 1 medium potato 3.8 Raw [place] (with peel) 1 cucumber 1.5 Lettuce 1 [...] 8.7 Peanuts 1/2 cup 7.9 Chart from [facility] 2013. SEEK IMMEDIATE MEDICAL CARE IF: You [...] [facility] Patient Information 2009 [employer]. [employer] 2012 [email or web address] Follow Up Care 03/31/2022 10:27:32 With:Napoleon NOVA Address: [address] [place] [address]. [address] [place] [address] Business (1) When: Unknown Comments:office will call for follow up [facility]05-17-2022 Hospital Discharge instructions Patient Education 03/31/2022 [...] including vitamins, herbs, eye drops, creams, and grfv-tjk-cionwwv medicines. Any problems you or family members [...] 10/29/2001 Document Revised: 08/24/2018 Document Reviewed: 01/12/2017 [employer] Patient Education [employer]. Follow Up Care 03/23/2022 12:11:50 With:Nereyda Gomez CNP Address: When:1 month [facility] [employer]uation + Plan note Future Appointments Appointment Date:05/25/2022 08:45:00 AM Scheduled Provider: Location:[facility] Appointment Type:Surgery FT [facility] Evaluation + Plan note Future Appointments Appointment Date:06/10/2023 10:40:00 AM Scheduled Provider:Nereyda Gomez CNP Location:[facility] Appointment Type:[facility] Follow Up Future Scheduled Tests Laboratory* Fecal WBC Lactoferrin 04/13/23 * Giardia lamblia, Direct Detection EIA 04/13/23 * O & P Exam, Routine 04/13/23 * Clostridium Difficile PCR 04/13/23 * Enteric Panel by PCR 04/13/23 [facility] [employer]uation + Plan note Future Appointments Appointment Date:06/10/2023 10:40:00 AM Scheduled Provider:Nereyda Gomez CNP Location:[facility] Appointment Type:[facility] Follow Up Diagnostic Tests Pending * O & P Exam, Routine 04/15/23 * Giardia lamblia, Direct Detection EIA [facility]23 [facility]ments Appointment Date:09/13/2023 10:40:00 AM Scheduled Provider:Nereyda Gomez CNP Location:[facility] Appointment Type:BAD Follow Up [facility] Evaluation + Plan note Future Appointments Appointment Date:10/14/2023 02:20:00 PM Scheduled Provider:Nereyda Gomez CNP Location:[facility] Appointment Type:[facility] Follow Up Future Scheduled Tests Laboratory* CBC w/ Auto Diff 10/01/23 * Comprehensive Metabolic Panel 10/01/23 * Thyroid Stimulating Hormone 10/01/23 [facility] Evaluation + Plan note Future Appointments Appointment Date:12/09/2023 02:00:00 PM Scheduled Provider:Nereyda Gomez CNP Location:[facility] Appointment Type:[facility] Follow Up Future Scheduled Tests Laboratory* CBC w/ Auto Diff 10/01/23 * Comprehensive Metabolic Panel 10/01/23 * Thyroid Stimulating Hormone 10/01/23 [facility] Evaluation + Plan note Future Appointments Appointment Date:10/26/2024 09:30:00 AM Scheduled Provider: Location:[facility] Appointment Type:URO Nurse Visit Appointment Date:12/04/2024 08:40:00 AM Scheduled Provider:MARQUIS LOUISE MD Location:[facility] Appointment Type:URO Office Visit Future Scheduled Tests Laboratory* CBC w/ Auto Diff 10/01/23 * Comprehensive Metabolic Panel 10/01/23 * Thyroid Stimulating Hormone 10/01/23 [facility] evaluation + Plan note Future Appointments Appointment Date:11/06/2024 09:00:00 AM Scheduled Provider: Location:[facility] Appointment Type:URO Nurse Visit Appointment Date:12/04/2024 08:40:00 AM Scheduled Provider:MARQUIS LOUISE MD Location:[facility] Appointment Type:URO Office Visit Future Scheduled Tests Laboratory* CBC w/ Auto Diff 10/01/23 * Comprehensive Metabolic Panel 10/01/23 * Thyroid Stimulating Hormone 10/01/23 [facility] evaluation + Plan note Future Appointments Appointment Date:12/04/2024 08:40:00 AM Scheduled Provider:MARQUIS LOUISE MD Location:[facility] Appointment Type:URO Office Visit Future Scheduled Tests Laboratory* CBC w/ Auto Diff 10/01/23 * Comprehensive Metabolic Panel 10/01/23 * Thyroid Stimulating Hormone 10/01/23 [facility] evaluation + Plan note Future Appointments Appointment Date:06/11/2025 11:40:00 AM Scheduled Provider:LU OLMEDO PA-C Location:[facility] Appointment Type:URO Office Visit Future Scheduled Tests Laboratory* CBC w/ Auto Diff 10/01/23 * Comprehensive Metabolic Panel 10/01/23 * Thyroid Stimulating Hormone 10/01/23 [facility] Evaluation + Plan note Future Appointments Appointment Date:03/04/2026 09:00:00 AM Scheduled Provider:MARQUIS LOUISE MD Location:[facility] Appointment Type:URO Office Visit [facility] evaluation note* Diagnosis Melanocytic nevus of [...] condition with diabetic polyneuropathy, unspecified whether long distance operator insulin use (CMS/HCC) Pain due to onychomycosis of toenails of both feet documented in this encounter [facility]* Diagnosis Xerosis cutis- Primary Other specified disease of sebaceous glands Verruca plantaris Plantar wart Foot pain, right Pain in soft tissues of limb Diabetes mellitus due to underlying condition with diabetic polyneuropathy, unspecified whether long distance operator insulin use (CMS/HCC) Onychomycosis Dermatophytosis of nail [...] underlying condition with diabetic polyneuropathy, unspecified whether penitentiary insulin use (CMS/HCC) Pain due to onychomycosis [...] underlying condition with diabetic polyneuropathy, unspecified whether penitentiary insulin use (CMS/HCC) Pain due to onychomycosis [...] condition with diabetic polyneuropathy, unspecified whether long distance operator insulin use ([facility]) Pain due to onychomycosis of toenails [...] condition with diabetic polyneuropathy, unspecified whether long distance operator insulin use (HCC) Pain due to onychomycosis [...] Cervical paraspinal muscle spasm Spasm of muscle JSOIAH (obstructive sleep apnea) Obstructive sleep apnea (adult) [...] Spasm of muscle documented in this encounter [facility] HealthcareEvaluation noteNo assessment information availableFirelands Regional Medical Center [facility] Work Phone: Evaluation note* Diagnosis Benign essential tremor- Primary Essential [...] Cervical paraspinal muscle spasm Spasm of muscle Seborrheic keratosis- Primary Actinic keratosis Lentigines Neoplasm of unspecified behavior of bone, soft tissue, and skin documented in this encounter [facility] HealthcareHistory of [...] instructions No data available for this section [facility] No data available for this section [facility]Reason for referral (narrative)No reason for referral information availablePomerene Hospital Work Phone: Summary Purpose Family History No Family History [...] Found Advance Directives No Advanced Directives Records Found Advance Directive Response Recorded Date/ Time Advance Directives No September 22, 2024 5:39pm Additional Source Comments (unrecognized sect ion and [...] section and content) DATE CREATED AUTHOR 02/09/2019 [facility] DATE CREATED AUTHOR AUTHOR'S ORGANIZ ATION 03/28/2023 [facility] DATE CREATED AUTHOR AUTHOR'S ORGANIZ ATION 04/15/2025 [facility] DATE CREATED AUTHOR AUTHOR'S ORGANIZ ATION 04/16/2025 [facility] DATE CREATED AUTHOR AUTHOR'S ORGANIZ ATION 04/17/2025 [facility] DATE CREATED AUTHOR AUTHOR'S ORGANIZ ATION 04/18/2025 [facility] DATE CREATED AUTHOR AUTHOR'S ORGANIZ ATION 04/19/2025 [facility] DATE CREATED AUTHOR AUTHOR'S ORGANIZ ATION 04/21/2025 [facility] DATE CREATED AUTHOR AUTHOR'S ORGANIZ ATION 04/22/2025 [facility] DATE CREATED AUTHOR AUTHOR'S ORGANIZ ATION 05/23/2025 [facility] DATE CREATED AUTHOR AUTHOR'S ORGANIZ ATION 06/12/2025 [facility] DATE CREATED AUTHOR AUTHOR'S ORGANIZ ATION 06/14/2025 [facility] DATE CREATED AUTHOR AUTHOR'S ORGANIZ ATION 09/05/2025 [facility] DATE CREATED AUTHOR AUTHOR'S ORGANIZ ATION 09/08/2025 [facility] DATE CREATED AUTHOR AUTHOR'S ORGANIZ ATION 09/12/2025 [facility] EPIC Care Team (unrecognized sect ion and content) Team MemberRelationshipSpecialtyStart DateEnd Date Van Youssef MD [address] [place] [address] PCP - GeneralFamily Medicine12/02/23Team MemberRelationshipSpecialtyStart DateEnd Date Van Youssef MD [address] [place] [facility] [address] PCP - GeneralFamily Medicine12/02/23Team MemberRelationshipSpecialtyStart DateEnd Date Van Youssef MD [address] [place] [facility] [address] PCP - GeneralFamily Medicine12/02/23Team MemberRelationshipSpecialtyStart DateEnd Date Van Youssef MD [address] [place] [facility] [address] PCP - GeneralFamily Medicine12/02/23Team MemberRelationshipSpecialtyStart DateEnd Date Van Youssef MD [address] [place] [facility] [address] PCP - GeneralFamily Medicine12/02/23Team MemberRelationshipSpecialtyStart DateEnd Date Van Youssef MD [address] [place] [facility] [address] PCP - GeneralFamily Medicine12/02/23Team MemberRelationshipSpecialtyStart DateEnd Date Van Youssef MD [address] [place] [facility] [address] PCP - GeneralFamily Medicine12/02/23Team MemberRelationshipSpecialtyStart DateEnd Date Van Youssef MD [address] [place] [facility] [address] PCP - GeneralFamily Medicine12/02/23Team MemberRelationshipSpecialtyStart DateEnd Date Van Youssef MD [address] [place] [facility] [place] [address] PCP - GeneralFamily Medicine12/02/23Team MemberRelationshipSpecialtyStart DateEnd Date Van Youssef MD [address] [place] [facility] [address] PCP - GeneralFamily Medicine12/02/23Team MemberRelationshipSpecialtyStart DateEnd Date Van Youssef MD [address] [place] [facility] [address] PCP - GeneralFamily Medicine12/02/23Team MemberRelationshipSpecialtyStart DateEnd Date Van Youssef MD PCP - GeneralFamily Medicine12/02/23Team MemberRelationshipSpecialtyStart DateEnd Date Van Youssef MD [address] [place] [facility] [address] PCP - GeneralFamily Medicine12/02/23Team MemberRelationshipSpecialtyStart DateEnd Date Van Youssef MD [address] [place] [facility] [address] PCP - GeneralFamily Medicine12/02/23Team MemberRelationshipSpecialtyStart DateEnd Date Van Youssef MD [address] [place] [facility] [address] PCP - GeneralFamily Medicine12/02/23Team MemberRelationshipSpecialtyStart DateEnd Date Van Youssef MD [address] [place] [facility] [place] [address] PCP - GeneralFamily Medicine12/02/23Team MemberRelationshipSpecialtyStart DateEnd Date Van Youssef MD [address] [place] [facility] [address] PCP - GeneralFamily Medicine12/02/23Team MemberRelationshipSpecialtyStart DateEnd Date Vna Youssfe MD [address] [place] [facility] [address] PCP - GeneralFamily Medicine12/02/23Team MemberRelationshipSpecialtyStart DateEnd Date Van Youssef MD [address] [place] [facility] [address] PCP - GeneralFamily Medicine12/02/23Team MemberRelationshipSpecialtyStart DateEnd Date Van Youssef MD [address] [place] [facility] [place] [address] PCP - GeneralFamily Medicine12/02/23Team MemberRelationshipSpecialtyStart DateEnd Date Van Youssef MD [address] [place] [facility] [address] PCP - GeneralFamily Medicine12/02/23Team MemberRelationshipSpecialtyStart DateEnd Date Van Youssef MD [address] [place] [facility] [place] [address] PCP - GeneralFamily Medicine12/02/23Team MemberRelationshipSpecialtyStart End Van Youssef MD [address] [place] [address] PCP - GeneralFamily Medicine12/02/23 Team Status: Inactive Member Role/Relationship Status Dates Van Youssef MD Attending Provider Active Sta rt: September 04, 2025 End: September 04, 2025Team MemberRelationshipSpecialtyStart DateEnd Van Youssef MD [address] [place] [address] PCP - Generalmi Medicine12/02/23Team MemberRelationshipSpecialtyStart End Van Youssef MD [address] [place] [address] PCP - Generalmi Medicine12/02/23 Reason for Visit (unrecogniz ed section and content) ReasonCommentsSkin CheckReasonCommentsDM Foot CareDM NailsReasonCommentsDM Foot CareDm NailsReasonCommentsFollow-upRt lesion follow upReasonCommentsFollow-upRt lesionsReasonCommentsTremorsReasonCommentsDM Foot CareDm nail careReasonComments DM Foot Care Goals (unrecognized section and content) Goals may be documented in a n alternate section FOR RECORDS PERTAINING TO PATIENTS WHO ARE [...] BE BASED ON THE PRIMARY CLINICAL RECORDS. [employer] [facility]. provides no warranty or guarantee of the accuracy or completeness of information in this document.
[2025-09-14 11:25] LABS: Anion Gap 14.1; Blood Urea Nitrogen 36.0 mg/dL (7.0-18.0); Calcium 9.6 mg/dL (8.5-10.1); Carbon Dioxide 29.4 mmol/L (21.0-32.0); Chloride 100 mmol/L (98-107); Estimated GFR (African America 35 (>=60 mL/min/1.73m^2); Estimated GFR (Non-African Ame 29 (>=60 mL/min/1.73m^2); Glucose 235 mg/dL (74-106); Potassium 4.5 mmol/L (3.5-5.1); Sodium 139 mmol/L (136-145)
[2025-09-14 11:32] LABS: NT Pro B Type Natriuretic Pept 2615.0 pg/mL (<=1800.0)
== END 2025-09-14 10:48 | disposition home or self-care (01) ==
LOC: LAB 10:47
PROVIDERS: PCP Family Medicine; Visit Provider Internal Medicine Interventional Cardiology
DX: I50.41 Acute combined systolic (congestive) and diastolic (congestive) heart failure (principal)
CPT/HCPCS: 36415; 80048; 83880

== ENCOUNTER 2025-09-25 15:00 | Outpatient (OUT) | payer MEDICARE, SELFPAY ==
--- OUTSIDE RECORDS SUMMARY | 2025-04-26 04:30 | XMS_ITS ---
Author Organization [facility] in [place] Address [address] [place] [address] Care Team Providers Care Senior Sous Chef Name Role Phone Pineda Erik Primary Care Provider [phone] REASON FOR VISIT injection Encounters Encounter Location Date Provider Diagnosis [facility] [address] [place] [address] 04/26/2025 Erik Sung Plan Of Treatment Next Appt Details Provider Name:Erik Sung, 10:00:00 AM, [address] [place], [address], Progress Notes * ZOEYAnson SULLIVAN LDOB:[birth year] (85 yo M)Acc No.[id number]:04/26/2025 UNLOCKED PROGRESS NOTE Progress Note Patient: Anson SANTILLAN :?Pj Sung ([facility]), MDDOB:1940???Age: 85 Y???Sex:MaleDate:04/26/2025Phone:[phone]:[address] [place] [address] Subjective: * Chief Complaints: * 1 . Injection. * Medical History: Objective: * Vitals: Assessment: Plan: * Treatment: * * Electronic signature of Erik Sung MD, [id number] on 09/25/2025 at 03:04 PM EST Sign off status: PendingVisit Status:?CANC (Cancelled) * Provider: Louise Sung ([facility])MD Date: 0 04/26/2025 Generated for Printing/Faxing/eTransmitting on:?09/25/2025 03:04 PM EST
--- OUTSIDE RECORDS SUMMARY | 2025-09-11 12:15 | XMS_ITS | Encounter Summary ---
Author Organization [facility] Address [address] [place] [address] Care Team Providers Care Business Affairs Manager Name Role Phone Pj Sung MD Primary Care Provider [phone] Reason for Visit * ReasonCommentsSkin Check Encounter Details DateTypeDepartmentCare Team (Latest Contact Info)Qgqizxvfldm09/28/2025 1:15 PM EDTOffice Visit [facility] [address] [facility] [address] [place] [address] Mercedes Joy MD [address] [facility] [address] [place] [address] Seborrheic keratosis (Primary Dx); Actinic keratosis; Lentigines; Neoplasm of unspecified behavior of bone, soft tissue, and skin Social History Tobacco UseTypesPacks/DayYears UsedDateSmoking Tobacco: FormerCigarettes Smokeless Tobacco: NeverAlcohol UseStandard Drinks/WeekCommentsNever0 (1 standard drink = 0.6 oz pure alcohol)caffeine 1-2 cups/daySex and Gender InformationValueDate RecordedSex Assigned at BirthNot on fileLegal SexMale 01/27/2023 6:35 PM EDTGender IdentityNot on fileSexual OrientationNot on file documented as of this encounter Progress Notes * Mercedes Joy MD - 09/11/2025 1:15 PM EDT Images from the original note were not included. Skin Check Location: Patient requests a skin examination from the waist up Dermatologic history: history of Actinic Keratosis, history of Basal Cell Carcinoma Last visit: 1 year ago Established patient Lesions: Location: Forehead Duration: few months Quality: denies pain, denies itch, denies bleeding Associated symptoms: non-healing, red, rough Treatments: none All pertinent medical history, medications, and allergies were reviewed. General Exam: alert, oriented to person, place, and time, normal affect, well appearing patient uses walker Unaccompanied A complete skin exam was offered, pt declined. Areas not examined despite medical recommendation: From the waist down Scalp, Examined Head, Face Examined Neck Examined Chest Examined Back Examined Abdomen Examined Right arm Examined Left arm Examined Hands Examined Digits,nails: Examined Lymphatics: Not examined Skin Exam 1. ACTINIC KERATOSIS (5) Left Buccal Cheek, Left Forehead, Left Parotid Area, Mid Frontal Scalp, Right Forehead Erythematous scaly papules Patient was counseled regarding [...] limited to risks of scarring, darker or manager analytical pigmentary changes, recurrence, incomplete removal and infection. Method: Liquid nitrogen was used to treat the lesion(s) with two 5-10 second freeze-thaw cycles. Number of lesions treated: 5 Post-procedure instructions: Instructions were given orally and in writing. The office will be contacted if the lesion fails to resolve despite treatment, or if a side effect develops such as abnormal crusting, scabbing, redness or tenderness - Cryotherapy, skin lesion - Left Buccal Cheek, Left Forehead, Left Parotid Area, Mid Frontal Scalp, Right Forehead 2. LENTIGINES (2) Head - Anterior (Face), Torso - Posterior (Back) Scattered krishnamurthy macules in sun-exposed areas. The patient was informed that lentigines are benign pigmented lesions that occur on sun-exposed andsun-damaged skin. No treatment is necessary. Recommended regular use of broad spectrum sunscreen SPF 30 or higher 3. SEBORRHEIC KERATOSIS (2) Mid Frontal Scalp, Mid Parietal Scalp Stuck on verrucous, krishnamurthy-brown papules and plaques. Patient was counseled regarding these benign growths. Removal is normally not necessary, but they may be removed if they are symptomatic or for cosmetic reasons. 4. NEOPLASM OF UNSPECIFIED BEHAVIOR OF BONE, SOFT TISSUE, AND SKIN Left Knee - Anterior [place] papule - Lesion biopsy Type of biopsy: tangential Informed consent: discussed and consent obtained Informed consent comment: The risks and benefits of the biopsy were discussed. Risks include but are not limited to bleeding, infection, scarring, pain, and nerve damage. An opportunity to ask questions prior to the procedure was permitted and all questions were answered. Patient was prepped and draped in usual sterile fashion: area cleansed with alcohol. Anesthesia: the lesion was anesthetized in a standard fashion Anesthetic: 1% lidocaine w/ epinephrine 1-100,000 buffered w/ 8.4% NaHCO3 Instrument used: DermaBlade Hemostasis achieved with: electrodesiccation Outcome: patient tolerated procedure well Outcome comment: The specimen was placed in a prelabeled formalin container to be sent for pathology Post-procedure details: sterile dressing applied and wound care instructions given Post-procedure details comment: Emphasized need to contact clinic for any signs of infection, uncontrollable bleeding, or complications. Dressing type: bandage Additional details: Photo taken yes Amount of lidocaine used: 0.5 cc Specimen A - Dermatopathology exam Differential Diagnosis: BCC Check Margins: No Size of lesion: 1.7 x 1.2 cm Next Visit: 1 year, pending bx results documented in this encounter Plan of Treatment DateTypeDepartmentCare Team (Latest Contact Info)Kyjamjihczq00/25/2025 1:45 PM ESTOffice Visit [facility] [address] [facility] [address] [place] [address] Lenin Montoya MD [address] [facility] [address] [place], [place] [id number] 12/11/2025 1:15 PM ESTOffice Visit [facility] [address] [place] [address] Hanane Chris MD [address] [place] [address] 12/13/2025 10:30 AM ESTOffice Visit [facility] [address] [place] [address] Blaise Dc DPM [address] [facility] [address] [place] [address] 09/10/2026 1:15 PM EDTOffice Visit [facility] [address] [place] [address] Mercedes Joy MD [address] [place] [address] documented as of this encounter Procedures Procedure NamePriorityDate/TimeAssociated DiagnosisCommentsSKIN / NAIL BIOPSY Sisguik1809/11/2025 1:13 PM EDT Neoplasm of unspecified behavior of bone, soft tissue, and skin CRYOTHERAPY SKIN PXGDRQAqekykh88/28/2025 1:10 PM EDT Actinic keratosis DERMATOPATHOLOGY FRIKVxvlris11/28/2025 12:00 AM EDT Neoplasm of unspecified behavior of bone, soft tissue, and skin documented in this encounter Results * Lesion biopsy (09/11/2025 1:13 PM EDT) Narrative Becky Wilcox MA - 09/11/2025 1:13 PM EDT Type of biopsy: tangential Informed consent: discussed and consent obtained ?? Informed consent comment: ??The risks and benefits of the biopsy were discussed. Risks include but are not limited to bleeding, infection, scarring, pain, and nerve damage. An opportunity to ask questions prior to the procedure was permitted and all questions were answered. Patient was prepped and draped in usual sterile fashion: area cleansed with alcohol. Anesthesia: the lesion was anesthetized in a standard fashion ?? Anesthetic: ??1% lidocaine w/ epinephrine 1-100,000 buffered w/ 8.4% NaHCO3 Instrument used: DermaBlade ?? Hemostasis achieved with: electrodesiccation ?? Outcome: patient tolerated procedure well ?? Outcome comment: ??The specimen was placed in a prelabeled formalin container to be sent for pathology Post-procedure details: sterile dressing applied and wound care instructions given ?? Post-procedure details comment: ??Emphasized need to contact clinic for any signs of infection, uncontrollable bleeding, or complications. Dressing type: bandage ?? Additional details: ??Photo taken yes Amount of lidocaine used: 0.5 cc Authorizing ProviderResult TypeResult StatusEmily A Petitti MDDERM PROCEDURE ORDERABLESFinal Result * Cryotherapy, skin lesion (09/11/2025 1:10 PM EDT) Narrative Authorizing ProviderResult TypeResult StatusEmily A Petitti MDDERM PROCEDURE ORDERABLESFinal Result * Dermatopathology exam (09/11/2025 12:00 AM EDT)ComponentValueRef RangeTest MethodAnalysis TimePerformed AtPathologist SignatureSPECIMEN TYPE SPECIMEN: LEFT KNEE-ANTERIOR [facility] [id number] Code C44.711AURORA DIAGNOSTICSPROTOCOLF - FLATAURORA DIAGNOSTICSFinal Diagnosis BASAL CELL CARCINOMA (SEE COMMENT). COMMENT: The tumor shows multiple growth patterns including multicentric, nodular and infiltrating.??It is present at the peripheral edges of the tissue. NAV[facility]O DIAGNOSTICSGross TextAURORA DIAGNOSTICSMicroscopic DescriptionMicroscopic examination performed.NAV[facility]O [id number]*1AURORA DIAGNOSTICSSpecimen (Source)Anatomical Location / LateralityCollection Method / VolumeCollection TimeReceived TimeSkinTopography unknown / Uuucicz5009/11/2025 1:13 PM EDTComment: Differential Diagnosis: BCC Check Margins: No Size of lesion: 1.7 x 1.2 cm Narrative Authorizing ProviderResult TypeResult StatusEmily A Petitti MDLAB PATHOLOGY ORDERABLESFinal ResultPerforming OrganizationAddressCity/State/ZIP CodePhone Number [facility] documented in this encounter Visit Diagnoses Diagnosis Seborrheic keratosis- Primary Actinic keratosis Lentigines Neoplasm of unspecified behavior of bone, soft tissue, and skin documented in this encounter Care Teams Team MemberRelationshipSpecialtyStart DateEnd Date Pj Sung MD [address] [place] [address] PCP - GeneralFamily Medicine12/02/23documented as of this encounter
--- OUTSIDE RECORDS SUMMARY | 2025-09-15 07:26 | XMS_ITS ---
Author Organization [facility] [place] Address [address] [place] [address] Care Team Providers Care Firebrick Layer Name Role Phone Erik Sung Primary Care Provider [phone] REASON FOR VISIT kidney test Encounters Encounter Location Date Provider Diagnosis [facility] [address] [place] [address] 09/15/2025 Erik Sung CHF (congestive hear t failure) I50.9 Assessments Encounter Date Diagnosis (ICD Code) Assessment Notes Treatment Notes Treatment Clinical Notes Section Notes 09/15/2025 CHF (congestive heart failure) ( ICD-10 - I50.9) Plan Of Treatment Pending Test Test Name Order Date PROF CHEM 8 (BAS METB) 09/15/2025 Next Appt Details Provider Name:Erik Sung, 10:00:00 AM, [address] [place], [address], Progress Notes * Anson HEREDIA LDOB:[birth year] (85 yo M)Acc No.[id number]:09/15/2025 Patient:?Anson HEREDIA :1940???Age:85 Y???Sex:MalePhone:[phone] Address:[address] [place] [address], [address] Subjective: * Chief Complaints: * K idney test * Medical History: * Surgical History: * Hospitalization/Major Diagno stic Procedure: * Medications: Objective: * Vitals: * Physical Examination: ??? Assessment: * Assessment: 1.?CHF (congestive heart failure) - I50.9 (Primary)??? Plan: * Treatment: ?LAB: PROF CHEM 8 (CYRUS RAMIREZ) * Procedure Codes: * true * Date:?Generated for Printing/Faxing/eTransmitting on:?09/25/2025 03:03 PM EST
--- OUTSIDE RECORDS SUMMARY | 2025-09-20 11:40 | XMS_ITS | Encounter Summary ---
Author Organization [facility] Address [address] [place] [address] Care Team Providers Care Deputy Sheriff Lieutenant Name Role Phone Pj Sung MD Primary Care Provider [phone] Reason for Visit * ReasonCommentsDM Foot Care Encounter Details DateTypeDepartmentCare Team (Latest Contact Info)Vgqmndxkzbf68/06/2025 11:40 AM ESTOffice Visit [facility] [address] [facility] [address] [place] [address] Blaise Dc, DPM 3006 [facility] 5 [place] [address] Verruca plantaris (Primary Dx); Foot pain, right; Diabetes mellitus due to underlying condition with diabetic polyneuropathy, unspecified whether ocean transportation intermediary insulin use (HCC); Pain due to onychomycosis of toenails of both feet Social History Tobacco UseTypesPacks/DayYears UsedDateSmoking Tobacco: FormerCigarettes Smokeless Tobacco: Never Tobacco Cessation:Counseling Given: Yes Alcohol UseStandard Drinks/WeekCommentsNever0 (1 standard drink = 0.6 oz pure alcohol)caffeine 1-2 cups/daySex and Gender InformationValueDate RecordedSex Assigned at BirthNot on fileLegal WizPpyc0801/27/2023 6:35 PM EDTGender Identity Not on fileSexual OrientationNot on filedocumented as of this encounter Last Filed Vital Signs Vital SignReadingTime TakenCommentsBlood Pressure--Pulse--Temperature-- Respiratory Tcgz250511/20/2024 11:35 AM ESTOxygen Saturation--Inhaled Oxygen Concentration--Ieijod66.2 kg (179 lb)09/20/2025 11:35 AM AJSZvlbsl653.7 cm (5' 8 )09/20/2025 11:35 AM ESTBody Mass Index27.22111/20/2024 11:35 AM ESTdocumented in this encounter Progress Notes * Blaise Dc, MARIIM - 09/20/2025 11:40 AM EST Patient: Anson Beth : 1940 PCP: Pj Sung MD SUBJECTIVE Anson Palacionereida 85 y.o. presents today for follow up of skin lesion/neoplasm of unknown origin to the right foot Pt states that previous treatment of acid tx with some improvement Pt rates pain the pain on a 1-10 scale an intensity of 7 Pt presents today for followup. Patient is [...] Strain: Low Risk (05/10/2025) Received from [facility] Overall Financial Resource Strain (CARDIA) Difficulty of Paying Living Expenses: Not hard at all Food Insecurity: No Food Insecurity (05/10/2025) Received from [facility] Hunger Vital Sign Within the past 12 months, you worried that your food would run out before you got the money to buymore.: Never true Ran Out of Food in the Last Year: Not on file Transportation Needs: No Transportation Needs (05/10/2025) Received from [facility] Transportation In the past 12 months, has lack of transportation kept you from medical appointments or from getting medications?: No Lack of Transportation (Non-Medical): Not on file Physical Activity: Not on file Stress: Not on file Social Connections: Not on file Intimate Partner Violence: Unknown (05/10/2025) Received from [facility] Humiliation, Afraid, Rape, and Kick questionnaire Within the last year, have you been afraid of your partner or ex-partner?: No Emotionally Abused: Not on file Physically Abused: Not on file Sexually Abused: Not on file Housing Stability: Low Risk (05/10/2025) Received from [facility] Housing Stability Vital Sign In the last 12 months, was there a time when you were not able to pay the mortgage or rent on time?: No Number of Times Moved in the Last Year: Not on file At any time in the past 12 months, were you homeless or living in a custodial (including now)?: No ROS: Gastrointestinal: denies abdominal [...] and negative PT pedal pulses NEURO: 5.07 [place]on monofilament test diminished to digits and forefoot bilaterally 125Hz tuning fork diminished to 1st MPJ bilaterally ORTHO: Positive pain on palpation to nails 1 through 10 Minimal pain on palpation of right foot lesion ASSESSMENT 1. Verruca plantaris 2. Foot pain, right 3. Diabetes mellitus due to underlying condition with diabetic polyneuropathy, unspecified whether ocean transportation intermediary insulin use (HCC) 4. Pain due to [...] Plan of Treatment DateTypeDepartmentCare Team (Latest Contact Info)Rlvuifygrvt50/25/2025 1:45 PM ESTOffice Visit [facility] [address] [place] [address] Lenin Montoya MD 2[address] [facility] [address] [place], [place] [id number] 12/11/2025 1:15 PM ESTOffice Visit [facility] [address] [place] [address] Hanane Chris MD [address] [place] [address] 12/13/2025 10:30 AM ESTOffice Visit [facility] [address] [facility] [address] [place] [address] Blaise cD DPM 3006 [facility] 5 [place] [address] 09/10/2026 1:15 PM EDTOffice Visit [facility] [address] [place] [address] Mercedes Joy MD [address] [facility] 350 [place] [address] documented as of this encounter Visit Diagnoses Diagnosis Verruca plantaris- Primary Plantar wart Foot pain, right Pain in soft tissues of limb Diabetes mellitus due to underlying condition with diabetic polyneuropathy, unspecified whether ocean transportation intermediary insulin use (HCC) Pain due to onychomycosis of toenails of both feet documented in this encounter Care Teams Team MemberRelationshipSpecialtyStart DateEnd Date Pj Sung MD [address] [place] [address] PCP - GeneralFamily Medicine12/02/23documented as of this encounter
--- OUTSIDE RECORDS SUMMARY | 2025-09-24 12:40 | XMS_ITS ---
Author Organization [facility] [place] Address [address] [place] [address] Care Team Providers Care Respiratory Technician Name Role Phone Erik Sung Primary Care Provider REASON FOR VISIT CT Head Encounters Encounter Location Date Provider Diagnosis [facility] [address] [place] [address] 09/24/2025 Erik Sung Altered mental statu s R41.82 Assessments Encounter Date Diagnosis (ICD Code) Assessment Notes Treatment Notes Treatment Clinical Notes Section Notes 09/24/2025 Altered mental status (ICD-10 - R41.82) Plan Of Treatment Pending Test Test Name Order Date CT HEAD WO CON 09/24/2025 Next Appt Details Provider Name:Erik Sung, 10:00:00 AM, [address] [place], [address], Progress Notes * Anson HEREDIA LDOB:[birth year] (85 yo M)Acc No.[id number]:09/24/2025 Patient:?Anson HEREDIA :1940???Age:85 Y???Sex:MalePhone:[phone] Address:[address] [place] [address], [address] Subjective: * Chief Complaints: * C T Head * Medical History: * Surgical History: * Hospitalization/Major Diagno stic Procedure: * Medications: Objective: * Vitals: * Physical Examination: ??? Assessment: * Assessment: 1.?Altered mental status - R41.82 (Primary)??? Plan: * Treatment: ?Imaging: CT HEAD WO CON* SCHEDULE FOR TOMORROW 9:30 ( 09/26/2025) * Procedure Codes: * true * Date:?Generated for Printing/Faxing/eTransmitting on:?09/25/2025 03:03 PM EST
--- OUTSIDE RECORDS SUMMARY | 2025-09-25 15:03 | XMS_ITS | Encounter Summary ---
Author Organization [facility] Address [address] [place] [address] Care Team Providers Care Extruder Operator Helper Name Role Phone Pj Sung MD Primary Care Provider [phone] Encounter Details DateTypeDepartmentCare Team (Latest Contact Info)Eucihjbfwea14/03/2025Results Follow-Up [facility] [address] [facility] [address] [place] [address] Mercedes Joy MD [address] [facility] [address] [place] [address] Dermatopathology exam Social History Tobacco UseTypesPacks/DayYears UsedDateSmoking Tobacco: FormerCigarettes Smokeless Tobacco: NeverAlcohol UseStandard Drinks/WeekCommentsNever0 (1 standard drink = 0.6 oz pure alcohol)caffeine 1-2 cups/daySex and Gender InformationValueDate RecordedSex Assigned at BirthNot on fileLegal SexMale 01/27/2023 6:35 PM EDTGender IdentityNot on fileSexual OrientationNot on file documented as of this encounter Plan of Treatment DateTypeDepartmentCare Team (Latest Contact Info)Igrwewmsbtl60/25/2025 1:45 PM ESTOffice Visit [facility] Neurology [address] [place] [address] Lenin Montoya MD [address] [facility] [address] [place], [place] [address] 12/11/2025 1:15 PM ESTOffice Visit [facility] [place] [facility] [address] [place] [address] Hanane Chris MD [address] [facility] [address] [place] [address] 12/13/2025 10:30 AM ESTOffice Visit [facility] [address] [facility] 120 [place] [address] Blaise Dc DPJim 3006 [facility] 5 [place] [address] 09/10/2026 1:15 PM EDTOffice Visit [facility] [place] [facility] [address] [place] [address] Mercedes Joy MD [address] [facility] 350 [place] [address] documented as of this encounter Visit Diagnoses Not on filedocumented in this encounter Care Teams Team MemberRelationshipSpecialtyStart DateEnd Date Pj Sung MD [address] [facility] [place] [address] PCP - GeneralFamily Medicine12/02/23documented as of this encounter
--- OUTSIDE RECORDS SUMMARY | 2025-09-25 15:03 | XMS_ITS | Encounter Summary ---
Author Organization [facility] Address [address] [place] [address] Care Team Providers Care Awning Erector Name Role Phone Pj Sung MD Primary Care Provider [phone] Encounter Details DateTypeDepartmentCare Team (Latest Contact Info)Jfalsdusxwc72/06/2025amboo flowsheet [facility] [address] [facility] 120 [place] [address] Blaise Dc, DPJim [address] [facility] 5 [place] [address] Social History Tobacco UseTypesPacks/DayYears UsedDateSmoking Tobacco: FormerCigarettes Smokeless Tobacco: NeverAlcohol UseStandard Drinks/WeekCommentsNever0 (1 standard drink = 0.6 oz pure alcohol)caffeine 1-2 cups/daySex and Gender InformationValueDate RecordedSex Assigned at BirthNot on fileLegal SexMale 01/27/2023 6:35 PM EDTGender IdentityNot on fileSexual OrientationNot on file documented as of this encounter Plan of Treatment DateTypeDepartmentCare Team (Latest Contact Info)Axenoydpbim79/25/2025 1:45 PM ESTOffice Visit [facility] [place] [facility] [address] [facility] [address] [place] [address] Lenin Montoya MD [address] [facility] [address] [place] [address] 12/11/2025 1:15 PM ESTOffice Visit [facility] [place] [facility] [address] [place] [address] Hanane Chris MD [address] [facility] [address] [place] [address] 12/13/2025 10:30 AM ESTOffice Visit [facility] [address] [facility] 120 [place] [address] Blaise Dc DPM [address] [facility] 5 [place] [address] 09/10/2026 1:15 PM EDTOffice Visit [facility] [place] [facility] [address] [facility] [address] [place] [address] Mercedes Joy MD [address] [facility] 350 [place] [address] documented as of this encounter Visit Diagnoses Not on filedocumented in this encounter Care Teams Team MemberRelationshipSpecialtyStart DateEnd Date Pj Sung MD [address] [place] [place] [address] [phone] PCP - GeneralFamily Medicine12/02/23documented as of this encounter
--- OUTSIDE RECORDS SUMMARY | 2025-09-25 15:03 | XMS_ITS | Encounter Summary ---
Author Organization [facility] Address [address] [place] [address] Care Team Providers Care Service Manager Name Role Phone Pj Sung MD Primary Care Provider [phone] Encounter Details DateTypeDepartmentCare Team (Latest Contact Info)Beellpufwow37/06/2025Travel Social History Tobacco UseTypesPacks/DayYears UsedDateSmoking Tobacco: FormerCigarettes Smokeless Tobacco: NeverAlcohol UseStandard Drinks/WeekCommentsNever0 (1 standard drink = 0.6 oz pure alcohol)caffeine 1-2 cups/daySex and Gender InformationValueDate RecordedSex Assigned at BirthNot on fileLegal SexMale 01/27/2023 6:35 PM EDTGender IdentityNot on fileSexual OrientationNot on file documented as of this encounter Plan of Treatment DateTypeDepartmentCare Team (Latest Contact Info)Hrallitjaok08/25/2025 1:45 PM ESTOffice Visit [facility] [address] [facility] [address] [place] [address] Lenin Montoya MD [address] [facility] [address] [place] [address] 12/11/2025 1:15 PM ESTOffice Visit [facility] [address] [place] [address] Hanane Chris MD [address] [place] [address] 12/13/2025 10:30 AM ESTOffice Visit [facility] [address] [place] [address] Blaise Dc DPM 3006 [facility] 5 [place] [address] 09/10/2026 1:15 PM EDTOffice Visit [facility] [address] [place] [address] Mercedes Joy MD [address] [place] [address] documented as of this encounter Visit Diagnoses Not on filedocumented in this encounter Care Teams Team MemberRelationshipSpecialtyStart DateEnd Date Pj Sung MD [address] [place] [facility] [place] [address] [phone] PCP - GeneralFamily Medicine12/02/23documented as of this encounter
--- OUTSIDE RECORDS SUMMARY | 2025-09-25 15:03 | XMS_ITS | Encounter Summary ---
Author Organization [facility] Address [address] [place] [address] Care Team Providers Care Manager Transportation Planning Name Role Phone Pj Sung MD Primary Care Provider [phone] Reason for Visit * ReasonCommentsMed Refill Encounter Details DateTypeDepartmentCare Team (Latest Contact Info)Mcpvziwfkdo09/04/2025Refill [facility] Neu[facility] [address] [address] Lenin Montoya MD [address] [id number] Neurogenic pain Social History Tobacco UseTypesPacks/DayYears UsedDateSmoking Tobacco: FormerCigarettes Smokeless Tobacco: NeverAlcohol UseStandard Drinks/WeekCommentsNever0 (1 standard drink = 0.6 oz pure alcohol)caffeine 1-2 cups/daySex and Gender InformationValueDate RecordedSex Assigned at BirthNot on fileLegal SexMale 01/27/2023 6:35 PM EDTGender IdentityNot on fileSexual OrientationNot on file documented as of this encounter Plan of Treatment DateTypeDepartmentCare Team (Latest Contact Info)Jrkxkvvfeak58/25/2025 1:45 PM ESTOffice Visit [facility] Neurology [address] [facility] [address] [place] [address] Lenin Montoya MD [address] [id number] 12/11/2025 1:15 PM ESTOffice Visit [facility] [place] [facility] [address] [place] [address] Hanane Chris MD [address] [place] [address] 12/13/2025 10:30 AM ESTOffice Visit [facility] [address] [facility] 120 [place] [address] Blaise Dc DPM 3006 [facility] 5 [place] [address] 09/10/2026 1:15 PM EDTOffice Visit [facility] [address] [place] [address] Mercedes Joy MD [address] [facility] 350 [place] [address] documented as of this encounter Visit Diagnoses Diagnosis Neurogenic pain documented in this encounter Care Teams Team MemberRelationshipSpecialtyStart DateEnd Date Pj Sung MD [address] [facility] [place] [address] PCP - GeneralFamily Medicine12/02/23documented as of this encounter
--- OUTSIDE RECORDS SUMMARY | 2025-09-25 15:03 | XMS_ITS | Encounter Summary ---
Author Organization [facility] Address [address] [place] [address] Care Team Providers Care Director Of Database Marketing Name Role Phone Pj Sung MD Primary Care Provider [phone] Encounter Details DateTypeDepartmentCare Team (Latest Contact Info)Suadqlrirgu33/28/2025amboo flowsheet [facility] [address] [facility] [address] [place] [address] Mercedes Joy MD [address] [facility] 350 [place] [address] Social History Tobacco UseTypesPacks/DayYears UsedDateSmoking Tobacco: FormerCigarettes Smokeless Tobacco: NeverAlcohol UseStandard Drinks/WeekCommentsNever0 (1 standard drink = 0.6 oz pure alcohol)caffeine 1-2 cups/daySex and Gender InformationValueDate RecordedSex Assigned at BirthNot on fileLegal SexMale 01/27/2023 6:35 PM EDTGender IdentityNot on fileSexual OrientationNot on file documented as of this encounter Plan of Treatment DateTypeDepartmentCare Team (Latest Contact Info)Dogliqpwhwv43/25/2025 1:45 PM ESTOffice Visit [facility] Neu[facility] [address] [facility] [address] [place] [address] Lenin Montoya MD [address] [facility] [address] [place] [address] 12/11/2025 1:15 PM ESTOffice Visit [facility] [place] [facility] [address] [place] [address] Hanane Chris MD [address] [facility] [address] [place] [address] 12/13/2025 10:30 AM ESTOffice Visit [facility] [address] [facility] 120 [place] [address] Blaise Dc DPM [address] [facility] 5 [place] [address] 09/10/2026 1:15 PM EDTOffice Visit [facility] [facility] [address] [facility] [address] [place] [address] Mercedes Joy MD [address] [facility] 350 [place] [address] documented as of this encounter Visit Diagnoses Not on filedocumented in this encounter Care Teams Team MemberRelationshipSpecialtyStart DateEnd Date Pj Sung MD [address] [facility] [place] [address] [phone] PCP - GeneralFamily Medicine12/02/23documented as of this encounter
--- OUTSIDE RECORDS SUMMARY | 2025-09-25 15:03 | XMS_ITS | Clinical Summary ---
Author Organization [facility] Address [address] [facility] [place] [address] Care Team Providers Care Mattress Stuffer Name Role Phone Pj Sung MD Primary Care Provider [phone] Allergies Active AllergyReactionsCriticalityNoted DateCommentsIodinated Contrast Media 08/24/2023 Other Reaction(s): Unknown Wqzzqokfcjktr42/10/2022 Other Reaction(s): Not available, Unknown Klbqehb9808/24/2023 Other Reaction(s): elevated liver enzymes, Unknown Medications [...] 1 tablet by mouth in the morning.11/12/2022ctive rivaroxaban (Xarelto) 15 MG tablet Take 15 [...] MG chewable tablet Chew 10 mg DailyActive DULoxetine (Cymbalta) [address] capsule Indications:Neurogenic painTAKE 1 CAPSULE BY MOUTH AT BEDTIME 90 capsule 1115Active DULoxetine (Cymbalta) [address] capsule Indications:Neurogenic painTake 1 capsule (20 mg) by mouth at bedtime 90 capsule 1094111/18/2024Discontinued Active Problems ProblemNoted DateDiagnosed DateB12 /26/2025 Overview (07/10/2025): --- partially or fully due to PPI. Assessment & Plan (07/27/2025 1:18 PM EDT): --- partially or fully due to PPI. (Continue B12 injections.) Assessment & Plan (07/10/2025 11:24 AM EDT): --- partially or fully due to PPI. (Continue B12 injections.) Sequelae of cerebral mncgivcxah07/27/2025 Assessment & Plan (07/27/2025 1:18 PM EDT): (Anticoag managed by cardiology.) Assessment & Plan (07/10/2025 11:24 AM EDT): (Anticoag managed by cardiology.) Assessment & Plan (05/08/2025 4:35 PM EDT): (Continue ASA, Xeralto - was on eliquis, statin.) Assessment & Plan (04/10/2025 1:49 PM EDT): (Continue ASA.) Get MR brain report -- not received. (We have only MRA) Carotid stenosis, ygdvbejwx98/27/2025 Assessment & Plan (07/27/2025 1:18 PM EDT): [...] this office take over JOSIAH.] Split-[place] study ([facility] [place]), split for AHI >= 5. - not contacted, please check on. Afterward, will need new machine, supplies, etc. Download 1 mo then before appt. Assessment & Plan (07/10/2025 11:24 AM EDT): Family requesting that this office take over JOSIAH. Split-night study ([facility] [place]), split for AHI >= 5. Afterward, will need new machine, supplies, etc. Download 1 mo then before appt. Assessment & Plan (05/08/2025 4:35 PM EDT): Family will bring CPAP to SNF. Has been noncompliant at home May benefit from re titration study Managed by Dr John in [place] Assessment & Plan (04/10/2025 1:49 PM EDT): Still have only PAPT. Get original PSG.0 Assessment & Plan (08/01/2024 11:49 AM EDT): Get original PSG (only received PAPT). Assessment & Plan (01/11/2024 2:07 PM EST): Get sleep studies for our records - [facility]. Also send to [facility] (though not sure if liliya'd there). Olteranrioxsbi90/23/2024 Assessment & Plan (05/08/2025 4:35 PM EDT): (Continue current regimen.) Nonkvl5101/07/2024 Overview (07/27/2025): --- BET. Perhaps mild degree [...] desired. Resolved Problems ProblemNoted DateDiagnosed DateResolved DateParkinson vltwves7101/07/2024 01/11/2024 Encounters DateTypeDepartmentCare StrcNwttnboyuzm53/06/2025 11:40 AM ESTOffice Visit [facility] [address] [email or web address] 120 [place] [address] Blaise Dc DPM Verruca plantaris (Primary Dx); Foot pain, right; Diabetes mellitus due to underlying condition with diabetic polyneuropathy, unspecified whether fpc insulin use (HCC); Pain due to onychomycosis of toenails of both feet09/20/2025amboo flowsheet [facility] [address] [facility] [[email or web address] [address] [place] [address] Blaise Dc DPM 09/20/20255123Alhmca00/04/2025[facility] [address] [place] [address] Lenin Montoya MD Neurogenic pain09/17/2025Results Follow-Up [facility] [place] [facility] [address] [facility] [address] [place] [address] Mercedes Joy MD Dermatopathology exam09/11/2025 1:15 PM EDTOffice Visit [facility] [address] [facility] [address] [place] [address] Mercedes Joy MD Seborrheic keratosis (Primary Dx); Actinic keratosis; Lentigines; Neoplasm of unspecified behavior of bone, soft tissue, and skin09/11/2025amboo flowsheet [facility] [place] [facility] [address] [facility] [address] [place] [address] Mercedes Joy MD 09/11/20255120Jqjxnm89/08/2025Telephone [facility] [phone] [facility] [address] [address] Claritza Nam MA 08/14/2025Telephone [facility] [phone] [facility] [address] [address] Claritza Nam MA 07/27/2025 12:45 PM EDTOffice Visit [facility] Neu[facility] [address] [facility] 310 [place] [address] Lenin Montoya MD Tremor (Primary Dx); Neurogenic pain; Carotid stenosis, bilateral; Sequelae of cerebral infarction; JOSIAH (obstructive sleep apnea); B12 deficiency; Cervical paraspinal muscle spasm07/27/2025amboo flowsheet [facility] [address] [place] [address] Lenin Montoya MD 07/27/20255987Aaqzmf87/26/2025 10:30 AM EDTOffice Visit [facility] Neurology [address] [facility] [address] [place] [address] Lenin Montoya MD Tremor (Primary Dx); Neurogenic pain; Carotid stenosis, bilateral; Sequelae of cerebral infarction; JOSIAH (obstructive sleep apnea); Cervical paraspinal muscle spasm; B12 prluoytxgf54/26/2025amb flowsheet [facility] [address] [place] [address] Lenin Montoya MD 07/10/20250382Oiqkkm93/14/2025 11:50 AM EDTOffice Visit [facility] [address] [address] Blaise Dc DPM Verruca plantaris (Primary Dx); Foot pain, right; Diabetes mellitus due to underlying condition with diabetic polyneuropathy, unspecified whether fpc insulin use (HCC); Pain due to onychomycosis of toenails of both feet06/28/2025[facility] flowsheet [facility] [address] [phone] Blaise Dc DPM 06/28/2025Travelfrom Last 3 Months Family History Medical HistoryRelationNameCommentsHeart diseaseFatherCancerMotherMelanomaNeg Hx RelationNameStatusCommentsFatherDeceasedMotherDeceased Social History Tobacco UseTypesPacks/DayYears UsedDateSmoking Tobacco: FormerCigarettes Smokeless Tobacco: Never Tobacco Cessation:Counseling Given: Yes Alcohol UseStandard Drinks/WeekCommentsNever0 (1 standard drink = 0.6 oz pure alcohol)caffeine 1-2 cups/daySex and Gender InformationValueDate RecordedSex Assigned at BirthNot on fileLegal YpaEszp6601/27/2023 6:35 PM EDTGender Identity Not on fileSexual OrientationNot on file Last Filed Vital Signs Vital SignReadingTime TakenCommentsBlood Czepkxjg924/7910 8:19 AM EDT Tvdtq664409/14/2024 8:19 AM EDTTemperature--Respiratory Zfkj619511/20/2024 11:35 AM ESTOxygen Saturation--Inhaled Oxygen Concentration--Dqqfur78.2 kg (179 lb) 09/20/2025 11:35 AM NBYGpzkmi055.7 cm (5' 8 )09/20/2025 11:35 AM ESTBody Mass Index27.22111/20/2024 11:35 AM EST Plan of Treatment DateTypeDepartmentCare Team (Latest Contact Info)Ikxtravzuzm34/25/2025 1:45 PM ESTOffice Visit [facility] [address] [place] [address] Lenin Montoya MD [address] [facility] 111 [place] [address] 12/11/2025 1:15 PM ESTOffice Visit [facility] [address] [place] [address] Hanane Chris MD [address] [facility] 250 [place] [address] 12/13/2025 10:30 AM ESTOffice Visit [facility] 112 [facility] 120 [place] [address] Blaise Dc DPM 3[address] [facility] 5 [place] [address] 09/10/2026 1:15 PM EDTOffice Visit [facility] [address] [facility] [[email or web address]] [address] [place] [address] Mercedes Joy MD [address] [place] [address] Health MaintenanceDue DateLast DoneCommentsInfluenza Vaccine (#1)07/16/2025 08/15/2024, 08/20/2023, 08/18/2022, Additional history existsCOVID-19 Vaccine ( season), 08/16/2023, 08/26/2021, Additional history existsPneumococcal Vaccine: 65+ SrggvYpueuelkb46/02/2017, 01/28/2015, 01/28/2015 Procedures Procedure NamePriorityDate/TimeAssociated DiagnosisCommentsSKIN / NAIL BIOPSY Uqpfdcs1909/11/2025 1:13 PM EDT Neoplasm of unspecified behavior of bone, soft tissue, and skin CRYOTHERAPY SKIN LUQDQTEnacikx88/28/2025 1:10 PM EDT Actinic keratosis DERMATOPATHOLOGY LUNAJrqmnqf18/28/2025 12:00 AM EDT Neoplasm of unspecified behavior of bone, soft tissue, and skin from Last 3 Months Results * Lesion [...] AtPathologist SignatureSPECIMEN TYPE SPECIMEN: LEFT KNEE-ANTERIOR [facility] DHMLIATNNRDRIT97 Code C44.711AURORA DIAGNOSTICSPROTOCOLF - FLATAURORA DIAGNOSTICSFinal Diagnosis BASAL CELL CARCINOMA (SEE COMMENT). COMMENT: The tumor shows multiple growth patterns including multicentric, nodular and infiltrating.??It is present at the peripheral edges of the tissue. [facility] DIAGNOSTICSGross TextAURORA DIAGNOSTICSMicroscopic DescriptionMicroscopic examination performed.NA[facility]ARRO [id number]*1A[facility]A DIAGNOSTICSSpecimen (Source)Anatomical Location / LateralityCollection Method / VolumeCollection TimeReceived TimeSkinTopography unknown / Fqlforn0109/11/2025 1:13 PM EDTComment: Differential Diagnosis: BCC Check Margins: No Size of lesion: 1.7 x 1.2 cm Narrative Authorizing ProviderResult TypeResult StatusEmily Cara [facility] PATHOLOGY ORDERABLESFinal ResultPerforming OrganizationAddressCity/State/ZIP CodePhone Number [facility] from Last 3 Months Insurance Care Teams Team MemberRelationshipSpecialtyStart DateEnd Pj Sung MD [address] [place] [address] PCP - GeneralFamily Medicine12/02/23
--- OUTSIDE RECORDS SUMMARY | 2025-09-25 15:03 | XMS_ITS | Encounter Summary ---
Author Organization [facility] Address [address] [place] [address] Care Team Providers Care Elevated Work Platform Operator Name Role Phone Pj Sung MD Primary Care Provider [phone] Encounter Details DateTypeDepartmentCare Team (Latest Contact Info)Hvhcymkauph64/28/2025Travel Social History Tobacco UseTypesPacks/DayYears UsedDateSmoking Tobacco: FormerCigarettes Smokeless Tobacco: NeverAlcohol UseStandard Drinks/WeekCommentsNever0 (1 standard drink = 0.6 oz pure alcohol)caffeine 1-2 cups/daySex and Gender InformationValueDate RecordedSex Assigned at BirthNot on fileLegal SexMale 01/27/2023 6:35 PM EDTGender IdentityNot on fileSexual OrientationNot on file documented as of this encounter Plan of Treatment DateTypeDepartmentCare Team (Latest Contact Info)Hccclpevrlh26/25/2025 1:45 PM ESTOffice Visit [facility] Neurology [address] [facility] [address] [facility] [address] [place] [address] Lenin Montoya MD [address] [facility] [address] [place] [address] 12/11/2025 1:15 PM ESTOffice Visit [facility] [address] [address] [address] [address] [place] [address] Hanane Chris MD [address] [place] [address] 12/13/2025 10:30 AM ESTOffice Visit [facility] [address] [place] [address] Blaise Dc DPM [address] [facility] 5 [place] [address] 09/10/2026 1:15 PM EDTOffice Visit [facility] [address] [place] [address] Mercedes Joy MD [address] [place] [address] documented as of this encounter Visit Diagnoses Not on filedocumented in this encounter Care Teams Team MemberRelationshipSpecialtyStart DateEnd Date Pj Sung MD [address] [facility] [place] [address] [phone] PCP - GeneralFamily Medicine12/02/23documented as of this encounter
--- OUTSIDE RECORDS SUMMARY | 2025-09-25 15:04 | XMS_ITS | Clinical Summary ---
Author Organization [facility] Address [address] [place] [address] Phone Care Team Providers Care Refrigeration Brazer/Solderer Name Role Phone Unavailable Primary Care Provider Unavailabl e Social History Tobacco UseTypesPacks/DayYears UsedDateSmoking Tobacco: Never AssessedSex and Gender InformationValueDate RecordedSex Assigned at BirthNot on fileLegal Sex Male10/09/2022 2:16 PM ESTGender IdentityNot on fileSexual OrientationNot on file Plan of Treatment Not on file
--- OUTSIDE RECORDS SUMMARY | 2025-09-25 15:04 | XMS_ITS | Clinical Summary ---
Author Organization [facility] Address [address] [place] [address] Care Team Providers Care Wildlife Ecology Professor Name Role Phone Pj Sung MD Primary Care Provider [phone] Pj Sung MD Unavailable Allergies Active AllergyReactionsCriticalityNoted DateCommentsAminolevulinic Acid Hcl Uxxnfek6205/10/2025Iodinated Contrast Media07/17/2022Iodinated Contrast Media Uzqhiti7105/10/20258571Rejeovimoazqa70/02/9837DgdxwhifbcqeuMbkry54/26/2025 hypotension FpanizstadoFvpigqm68/26/7110Wbrsajd-Afp-Tsm Reductase Huaxmfikqv03/02/2022 Medications MedicationSigDispense QuantityRefillsLast FilledStart DateEnd DateStatus acyclovir [...] TAVR (transcatheter aortic valve replacement) 5Aortic stenosis, xqtofv665Chronic kidney nkdozwa6405/11/2025 Assessment & Plan (05/15/2025 1:32 PM EDT): [...] function, creatinine today 1.56, will monitor Elevated cljvbijz74/27/2025 Assessment & Plan (05/15/2025 1:19 PM EDT): [...] of chronic kidney disease and CHF Primary dtbwywrqnapo65/26/2025 Assessment & Plan (05/15/2025 1:19 PM EDT): [...] start JAY or ARB Acute congestive heart hffosvs8705/10/2025 Assessment & Plan (05/15/2025 1:32 PM EDT): [...] diabetes mellitus, with long-term current use of ybxbpzw7305/10/2025 Assessment & Plan (05/15/2025 1:19 PM EDT): [...] EDT): Insulin blood sugar check diet Other txxkzxuwfvkiks34/26/2025 Assessment & Plan (05/15/2025 1:19 PM EDT): [...] AM EDT): Antilipemic agents diet Chronic atrial unboaczunodd84/26/2025 Assessment & Plan (05/15/2025 1:19 PM EDT): [...] Plan (05/11/2025 5:43 PM EDT): Angina pectoris, fsnzjdko78/25/2025 Assessment & Plan (05/11/2025 5:43 PM EDT): COrders from past 72 hours: Case Request Grinder And Plater: Coronary angiography, Right heart cath; Standing Cardiac catheterization; Standing Nonrheumatic aortic valve rmszisuh79/25/2025bnormal findings on diagnostic imaging of heart and coronary ayfoypdsyrq83/28/2025quired buried penis 12/14/20246186Cplgjtxywkuovy45/30/9291Giwfooeht70/30/2025PH with urinary sxizmvrpcgn89/30/2025Gross pmjffpevj71/30/2025Incomplete bladder emptying 12/14/2024OAB (overactive bladder)12/14/2024Post-void wlrlzqxzy38/30/2025ute kidney cwesrd9606/05/2024enign essential weetae0001/07/2024 Overview (06/05/2024): Last Assessment & Plan: (Continue current regimen.) Option to incr to 4 pills/day if/when desired. Cervical paraspinal muscle spasm01/07/2024 Overview (06/05/2024): Last Assessment & Plan: (Continue home PT). Neurogenic pain01/07/2024 Overview (06/05/2024): Last Assessment & Plan: May request to restart GBP at a lower dose - 300 hs - when/if desired. Jkcarsvrpqliwd41/23/2024ongestive heart ssbhxva8711/17/2023Hearing loss11/17/2023 11/17/20231234Qeenmkztfoudgq31/03/202401/03/2024Hypertensive heart and chronic kidney disease with heart failure and stage 1 through stage 4 chronic kidney disease, or unspecified chronic kidney janftuq25/01/2024Nausea Sensorineural hearing loss, squkshdug24 Stenosis of left renal kwpigw97Tremor Chronic constipation with euhiqdvs76olon vlawop7206/10/2023 06/10/20236662Kiilccpbxrzqdk72/27/202307/27/2023Family history of colon cancer Fecal wracpiz36High serum creatinine Loose ttlqyr64History of colon polyps ulmonary hypertension due to left heart untuoyv8010/05/2022 Pericardial yjuqrmyn10/21/2022oronary pplysycpgdfeyfkm27/02/2022 Assessment & Plan (06/14/2023 3:03 PM EDT): Coronary artery disease is stable Continue GDMT- ASA, labetalol, zetia continue risk factor modifications- heart healthy diet, regular exercise as tolerated and continue all medications. Xenkdsniilo75/02/2022 Assessment & Plan (06/14/2023 3:02 PM EDT): stable Aortic valve comzfnht13/02/2022 Assessment & Plan (06/14/2023 3:02 PM EDT): Recent echo 05/2023 with noted mod AO stenosis Stage 3 chronic kidney ftbxmzo1607/17/2022 Assessment & Plan (06/14/2023 3:05 PM EDT): BMP script sent Pulmonary edema07/17/2022Edema of fmlfwyoauru69/02/2022hronic atrial hrkeezbhgpuo11/24/2019Atherosclerosis of renal wdxgdl1702/26/2014Type 2 diabetes mellitus with stage 3 chronic kidney disease, without long-term current use of ycwlpfu3208/12/2012cute on chronic diastolic heart zapxjwc7805/03/2012 Overview (07/17/2022): Echocardiogram 01/08/2022: Normal LV systolic [...] (06/14/2023 3:05 PM EDT): Recent admit to [facility] for shortness of breath, acute HFpEF with ARTUR. BNP 3311, BUN 26, CR 1.5-1.9, LFT normal, K+ normal. Troponin level negative. CXR showed vascular congestion Pt was admitted and diuresed as [facility] Continue GDMT- remains on jardiance and lasix 60 mg daily for diuresis Monitor daily weights, I&O, fluid restriction 1.5-2L/day, renal function and electrolytes- Script for BMP and CBC provided pt is also seeing PCP today Aortic valve /04/2012Type 1 diabetes fgltojgh53/04/2012Sleep apnea 03/18/2012Primary ruwvcfoyiqwi03/04/2056Lvdiljx91/04/2012Pulmonary heart disease, apejavvoldh61/04/2012 Encounters DateTypeDepartmentCare IvumBvdgaprnkvz29/31/2025Telephone [facility] [address] [place] [address] Caro Calixto MA 09/07/2025Orders Only [facility] [address] [place] [address] Stephanie Carl MA Acute combined systolic and diastolic heart failure (CMS/HCC) (Primary Dx) 09/04/2025Telephone [facility] [address] [place] [address] Stephanie Carl MA 08/03/2025Telephone [facility] [address] [place] [phone] Cierra Chow 08/03/2025Refill [facility] [address] [place] [address] Ginny Sampsno MA 08/01/2025 3:00 PM [facility] [address] [place] [phone] Ruthie Linda MD Stage 3b chronic kidney disease (CMS/HCC) (Primary Dx); Primary hypertension; Electrolyte disorder; Lower extremity edema; Hyperplasia of prostate; 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); Status post ymvuxw0507/31/2025Orders Only [facility] [address] [place] [address] ProviderNava MD 07/30/2025 10:40 AM EDTOffice Visit [facility] [address] [place] [address] Ruy Amanda, ABLWINDER S/P TAVR (transcatheter aortic valve replacement) (Primary Dx); Chronic diastolic congestive heart failure (CMS/HCC); LBBB (left bundle branch block); Paroxysmal atrial fibrillation (CMS/HCC); Benign hypertensive heart disease with heart failure (CMS/HCC); Mixed hyperlipidemiafrom Last 3 Months Immunizations ImmunizationAdministration DatesNext DueCovid (Pfizer) Bivalent Booster =>12 YRS 10/21/2022Influenza, Jhmrkcoylyv27/06/2023,08/18/2022,09/11/2021,08/27/2020, 08/15/2020,08/15/2019,08/29/2018,08/05/2017Influenza, trivalent, adjuvanted 08/27/2020Pfizer Covid-19 Vaccine, &, Fall 2022-3Pfizer SARS-CoV-2 Aqzolafjgpj35/12/2021,01/01/2021,1Pneumococcal Conjugate PCV Pneumococcal Polysaccharide AWA3884Pneumococcal, Unspecified 01/28/2015RSV, Adult, Vmiemvpy97/07/9720Ggmx87/16/2019Zoster, Recombinant 11/06/2020,10/30/2019Zoster, live09/20/2015 Family History Medical HistoryRelationNameCommentsCoronary artery diseaseFatherRelationName StatusCommentsFatherDeceasedMotherDeceased Social History Tobacco UseTypesPacks/DayYears UsedDateSmoking Tobacco: FormerCigarettes Smokeless Tobacco: Never Tobacco Cessation:Counseling Given: Not Answered Alcohol UseStandard Drinks/WeekCommentsNot Currently0 (1 standard drink = 0.6 oz pure alcohol)[facility] UtilitiesAnswerDate RecordedIn the past 12 months has the electric, gas, oil, or water [employer] threatened to shut off services in your [...] at all 05/10/2025PHQ-2AnswerDate RecordedPatient Health Questionnaire-2 Score0 01/03/2025UT Safety & EnvironmentAnswerDate RecordedFear of Current or Ex-PartnerNot on file01/06/2024Emotionally AbusedNot on file01/06/2024hysically AbusedNot on file01/06/2024Sexually AbusedNot on file01/06/2024hysically or Sexually AbusedNot on file01/06/2024TransportationAnswerDate RecordedIn the past 12 months, has lack [...] were you homeless or living in a chcf (including now)? No05/10/2025Hunger Vital SignAnswerDate RecordedWithin the past 12 months, you worried that your food would run out before you got the money to buymore.Never true05/10/2025Ran Out of Food in the Last YearNot on file05/10/2025Sex and Gender InformationValueDate RecordedSex Assigned at VcqrqJyvm01/27/2023 8:02 PM EDTLegal XueQbus9205/13/2022 10:17 PM EDTGender IkqattwuKyib02/27/2023 8:02 PM EDT Sexual OrientationHeterosexual or Qkaiomuo39/27/2023 8:02 PM EDT Last Filed Vital Signs Vital SignReadingTime TakenCommentsBlood Wlzdinay533/6709 2:52 PM EDT Ulglb7942 2:52 PM TOSKheruwnxjbu33.7 ??C (98.1 ??F)05/17/2025 7:25 PM EDTRespiratory Cnpd4423 7:25 PM EDTOxygen Iosqpfbknu46%07/30/2025 10:52 AM EDTInhaled Oxygen Concentration--Wgbsnh21 kg (176 lb 6.4 oz)08/01/2025 2:52 PM TXRMldtmq519.9 cm (6')08/01/2025 2:52 PM EDTBody Mass Index23.9208/01/2025 2:52 PM EDT Plan of Treatment DateTypeDepartmentCare Team (Latest Contact Info)Ooockbbgzyu27/19/2025 10:00 AM ESTOffice Visit [facility] [address] [place] [phone] Mike Cisneros MD [address] [facility] [address] [facility] [phone] 01/30/2026 3:00 PM EDTFoll-[facility] [address] [place] [address] Ruthie Linda MD [address] [facility] [place] [address] Health MaintenanceDue DateLast DoneCommentsMedicare Annual Wellness (AWV) 1939Diabetes: Retinopathy Mbnolwwqq54/25/1949Influenza Vaccine (#1) /11/2023, 08/20/2023, 08/18/2022, Additional history existsDiabetes: Hemoglobin A1C08/11//OVID-19 Vaccine ( season) /, 08/16/2023, 10/21/2022, Additional history exists Depression Eewvbttqp94/19/705474/Fall Risk Mujathcdr07/17// Adult Gnnuqgt44Pneumococcal Vaccine: 50+ YearsCompleted 08/16/2017, 01/28/2015, 01/28/2015Zoster YzyouxsuKnioaxefo60/22/2025, 11/06/2020, 10/30/2019, Additional history existsHIB VaccinesAged OutNo [...] DateModel / Serial / LotKit,Heart Valve,Sapien3,26mm - [id number] - [id number] Implanted:Qty: 1 on 05/15/2025 by [facility]os [facility]Prosthetic ValveN/A: HeartEDWARDS [id number]/26/2027 [id number] / [id number] / Procedures Procedure NamePriorityDate/TimeAssociated DiagnosisCommentsHEMOGLOBIN Y2YXxd-Zp 05/11/2025 4:27 AM EDT from Last 3 Months or Most Recently Relevant to Health Maintenance Results * (ABNORMAL) Hemoglobin A1c (05/11/2025 4:27 AM EDT)ComponentValueRef RangeTest MethodAnalysis TimePerformed AtPathologist SignatureHemoglobin A1C9.3(H)4.0 - 6.0 %05/11/2025 1:51 PM ED[facility]Estimated Average Glucose 220mg/dL05/11/2025 1:51 PM [facility] ([facility]Specimen (Source) Anatomical Location / LateralityCollection Method / VolumeCollection Time Received TimeBloodVenous blood specimen / UnknownVenipuncture / Unknown 05/11/2025 4:27 AM EDT05/11/2025 4:37 AM EDT Narrative Authorizing ProviderResult TypeResult StatusJulio Cesar Medina MDLAB BLOOD ORDERABLES Final ResultPerforming OrganizationAddressCity/State/ZIP CodePhone Number [facility] ([facility] [address] [place] [address] from Last 3 Months or Most Recently Relevant to Health Maintenance Insurance Advance Directives * Full Code (Latest Code Status on File) Date ActivatedDate InactivatedComments05/10/2025 9:05 AM05/17/2025 10:26 PM * DNR CC-A Date ActivatedDate InactivatedComments05/10/2025 4:16 AM05/10/2025 9:05 AMQuestion AnswerCommentsSelect If Any Apply:* No Intubation Care Teams Team MemberRelationshipSpecialtyStart DateEnd Date Pj Sung MD [address] [place] [id number] PCP - GeneralFamily Medicine05/10/25 Pj Sung MD [address] [place] [id number] 05/10/25
--- OUTSIDE RECORDS SUMMARY | 2025-09-25 15:04 | XMS_ITS | Patient Health Record ---
Author Organization [facility] in [place] Address [address] [place] [address] Care Team Providers Care Pantograph Ii Engraver Name Role Phone Erik Sung Primary Care Provider [phone] Allergies Allergen (clinical drug ingredient) Drug/Non Drug Allergy documented on EMR Reaction Allergy Type Onset Date Status simvastatin Simvastatin elevated liver enzymes Drug Allerg y Active Results Component Value Reference Range Notes UA DIP NONAUTO WO MICRO (810 02) - IN OFFICE Reviewed date:01/24/2025 06:29:49 PM Interpretation: Performing Lab: Notes/Report: COLOR yellow CLARITYclearGLUCOSELARGEBILIRUBINnegKETONEnegSPECIFIC GRAVITY1.929BAWHLWDYICTP4 PROTEINTRACEUROBILINOGENnegNITRITEnegLEUKOCYTE ESTERASEnegAMMONIA Reviewed date:01/18/2025 09:02:22 PM Interpretation: Performing Lab: Notes/Report: [facility] ,Ammonia<1011-32 umol/LPerforming Lab:see noteML - [facility] LBBNP Reviewed date:01/18/2025 09:02:22 PM Interpretation: Performing Lab: Notes/Report: [facility] ,NT Pro B Type Natriuretic Vwzh9712.0<=1800.0 pg/mL RESULTS CALLED TO cynthia valenzuela lpn @BY Cecilia Elder at 1158 Performing Lab:see note - [facility] LBUA DIP NONAUTO WO MICRO (04383) - IN OFFICE Reviewed date:09/04/2025 05:52:50 PM Interpretation: Performing Lab: Notes/Report: COLORyellowCLARITYclearGLUCOSElargeBILIRUBINnKETONEnSPECIFIC GRAVITY1.010BLOOD+ PH5.0PROTEIN+UROBILINOGENnNITRITEnLEUKOCYTE ESTERASE+BNP Reviewed date:04/15/2025 04:42:25 PM Interpretation: Performing Lab: Notes/Report: [facility] ,NT Pro B Type Natriuretic Jpiy7984.0<=1800.0 pg/mLRESULTS CALLED TO DR. SUNG Performing Lab:[facility] L[facility] Reviewed date:05/09/2025 09:23:04 PM Interpretation: Performing Lab: Notes/Report: [facility] ,NT Pro B Type Natriuretic Susi0760.0<=1800.0 pg/mLRESULTS CALLED TO MARIA LUZ Janeg Lab:see [facility] LBCA echo doppler complete Reviewed date:10/18/2024 07:39:53 PM Interpretation: Performing Lab: Notes/Report: Source Facility: [place] [address] Cardiology Report Signed Patient: NADIR HEREDIA MR#: [id number] : 1940 Acct:[id number] Age/Sex: 84 / M ADM Date: 10/18/24 Loc: CARD Attending Dr: CLARIBEL PUGA Ordering Physician: CLARIBEL PUGA Date of Service: 10/18/24 Procedure(s): CA echo doppler complete Accession Number(s): [id number] cc: Van Sung M.D.; CLARIBEL PUGA Patient Name: NADIR HEREDIA MR#: [id number] : 1940 Exam Date: 10/18/2024 Ordering Doctor: [...] Signed By: 10/18/24 1426 DD/ 1425 TD/TT: [place] Joiner:CBC AUTO DIFF Reviewed date:10/29/2024 08:20:36 PM Interpretation: Performing Lab: Notes/Report: [facility] ,White Blood Count7.54.0-11.0 10 3/uLRed Blood Count4.054.70-6.10 10 6/uL Hdyhgxtrko55.914.0-18.0 g/cLKqkvlfholw67.642.0-54.0 %Mean Corpuscular Volume 100.280.0-94.0 fLMean Corpuscular Igaqqqckgb11.325.9-34.0 pgMean Corpuscular HGB Conc34.229.9-35.2 g/dLRed Cell Distribution Width14.111.0-15.0 %Platelet Count 078693-449 10 3/uLMean Platelet Cyjtli21.89.5-13.5 fLNeutrophils Percent Auto 78.843.0-75.0 %Lymphocytes Percent Auto8.820.5-60.0 %Monocytes Percent Auto9.6 1.7-12.0 %Eosinophils Percent Auto1.70.9-7.0 %Basophils Percent Auto0.40.2-2.0 % Immature Granulocytes Pct Auto0.70.0-0.5 %Neutrophils Absolute Auto5.91.4-6.5 10 3/uLLymphocytes Absolute Auto0.71.2-3.8 10 3/uLMonocytes Absolute Auto0.70.3- 0.8 10 3/uLEosinophils Absolute Auto0.10.0-0.7 10 3/uLBasophils Absolute Auto0.0 0.0-0.1 10 3/uLImmature Granulocytes Abs Auto0.050.00-0.03 10 3/uLPerforming Lab:see noteML - [facility] LBPROF 14(COMP METB) Reviewed date:10/29/2024 08:20:36 PM Interpretation: Performing Lab: Notes/Report: [facility] ,Imgxju233059-721 mmol/LPotassium4.13.5-5.1 mmol/NWgtlukkv01917-115 mmol/LCarbon Pkkqtki32.221.0-32.0 mmol/LAnion Gap10.9Lvfhcrx47715-732 mg/dLBlood Urea Qhccyxtu23.07.0-18.0 mg/dLCreatinine1.780.70-1.30 mg/dLEstimated GFR ( Aidxgjs19>=60 mL/min/1.73m 2Estimated GFR (Non- Ame37>=60 mL/min/1.73m 2 BUN Creatinine Ratio13.7Qtxpcvb1.78.5-10.1 mg/dLBilirubin Total0.70.2-1.0 mg/dL Aspartate Amino Oacywepqsxc5702-43 U/LAlanine Mibvjtmansvbzufu2276-45 U/L Alkaline Cavfxlcwhnd0853-756 U/LTotal Protein6.16.4-8.2 g/dLAlbumin Level2.83.4- 5.0 g/dLGlobulin3.3Albumin Globulin Ratio0.8Performing Lab:see note - [facility] LBProthrombin Time INR Reviewed date:10/29/2024 08:20:36 PM Interpretation: Performing Lab: Notes/Report: [facility] ,Prothrombin Time10.59.0-11.6 secINR0.99 DESIRED INR: 2.0-3.0 CONDITIONS NOT LISTED BELOW 2.5-3.5 FOR PROSTHETIC HEART VALVE REPLACEMENT 2.5-3.5 RECURRENT THROMBOSIS Performing Lab:[facility] LBPROF CHEM 8 (BAS METB) Reviewed date:10/29/2024 08:20:36 PM Interpretation: Performing Lab: Notes/Report: [facility] ,Lgwdww737951-757 mmol/LPotassium4.63.5-5.1 mmol/QZiiyzttk96505-076 mmol/LCarbon Tztvoto33.021.0-32.0 mmol/LAnion Gap18.9Carwdbj58709-161 mg/dLBlood Urea Jogtbdce50.07.0-18.0 mg/dLCreatinine1.850.70-1.30 mg/dLEstimated GFR ( Sqtjwof18>=60 mL/min/1.73m 2Estimated GFR (Non- Ame35>=60 mL/min/1.73m 2 BUN Creatinine Ratio16.5Nccgvqb3.48.5-10.1 mg/dLPerforming Lab:see noteOhio[facility] LBCBC no Diff (Hemogram) Reviewed date:10/29/2024 08:20:36 PM Interpretation: Performing Lab: Notes/Report: [facility] ,White Blood Count15.44.0-11.0 10 3/uLRed Blood Count3.724.70-6.10 10 6/uL Rslqgkfibm58.714.0-18.0 g/iXGivkztuzhz94.542.0-54.0 %Mean Corpuscular Volume 103.580.0-94.0 fLMean Corpuscular Ffnfvyazad95.125.9-34.0 pgMean Corpuscular HGB Conc33.029.9-35.2 g/dLRed Cell Distribution Width14.111.0-15.0 %Platelet Count 926098-957 10 3/uLMean Platelet Wccaow16.69.5-13.5 fLPerforming Lab:see noteML - [facility] LBType and Screen Reviewed date:10/29/2024 08:20:36 PM Interpretation: Performing Lab: Notes/Report: [facility] ,Blood TypeA PositiveAntibody ScreenNEGATIVEPROF CHEM 8 (BAS METB) Reviewed date:11/11/2024 08:52:42 PM Interpretation: Performing Lab: Notes/Report: [facility] ,Dzcnmj457528-546 mmol/LPotassium5.03.5-5.1 mmol/OEsjhjuih86361-587 mmol/LCarbon Vvdjjfj39.821.0-32.0 mmol/LAnion Gap15.0Nodcbyu12284-554 mg/dLBlood Urea Audckgqv04.07.0-18.0 mg/dLCreatinine1.650.70-1.30 mg/dLEstimated GFR ( Zqnkyqp90>=60 mL/min/1.73m 2Estimated GFR (Non- Ame40>=60 mL/min/1.73m 2 BUN Creatinine Ratio12.7Akobboz7.78.5-10.1 mg/dLPerforming Lab:see note - [facility] LBHEMOGLOBIN Reviewed date:12/24/2024 11:26:08 AM Interpretation: Performing Lab: Notes/Report: [facility] ,Rpxmosjpbc57.114.0-18.0 g/dLPerforming Lab:see note - [facility] LBCBC AUTO DIFF Reviewed date:01/18/2025 09:02:22 PM Interpretation: Performing Lab: Notes/Report: [facility] ,White Blood Count9.04.0-11.0 10 3/uLRed Blood Count3.864.70-6.10 10 6/uL Ivhudbkiyi44.614.0-18.0 g/nSOlefjagqbf53.442.0-54.0 %Mean Corpuscular Bhdosf93.9 80.0-94.0 fLMean Corpuscular Tloktihjuj00.125.9-34.0 pgMean Corpuscular HGB Conc 31.029.9-35.2 g/dLRed Cell Distribution Width16.011.0-15.0 %Platelet Mszgw916 150-450 10 3/uLMean Platelet Dcsmyk99.59.5-13.5 fLNeutrophils Percent Auto79.2 43.0-75.0 %Lymphocytes Percent Auto9.020.5-60.0 %Monocytes Percent Auto8.11.7- 12.0 %Eosinophils Percent Auto2.80.9-7.0 %Basophils Percent Auto0.60.2-2.0 % Immature Granulocytes Pct Auto0.30.0-0.5 %Neutrophils Absolute Auto7.11.4-6.5 10 3/uLLymphocytes Absolute Auto0.81.2-3.8 10 3/uLMonocytes Absolute Auto0.70.3- 0.8 10 3/uLEosinophils Absolute Auto0.30.0-0.7 10 3/uLBasophils Absolute Auto0.1 0.0-0.1 10 3/uLImmature Granulocytes Abs Auto0.030.00-0.03 10 3/uLPerforming Lab:see noteML - [facility] LBFREE T3 Reviewed date:01/18/2025 09:02:22 PM Interpretation: Performing Lab: Notes/Report: [facility] ,Free T32.152.18-3.98 pg/mLPerforming Lab:see noteML - [facility] LB PROF 14(COMP METB) Reviewed date:01/18/2025 09:02:22 PM Interpretation: Performing Lab: Notes/Report: [facility] ,Ntgtrk832033-598 mmol/LPotassium4.53.5-5.1 mmol/KIhxlbcod22415-128 mmol/LCarbon Ztdpcmg65.521.0-32.0 mmol/LAnion Gap14.5Iupmvvh01749-328 mg/dLBlood Urea Yzonvtwn75.07.0-18.0 mg/dLCreatinine1.600.70-1.30 mg/dLEstimated GFR ( Qucpuvn42>=60 mL/min/1.73m 2Estimated GFR (Non- Ame41>=60 mL/min/1.73m 2 BUN Creatinine Ratio18.3Wtyiimb2.98.5-10.1 mg/dLBilirubin Total0.30.2-1.0 mg/dL Aspartate Amino Hrtmtdgyjue3410-60 U/LAlanine Nbneygiacprvoajc6040-22 U/L Alkaline Prdiuebtnhj9393-348 U/LTotal Protein6.76.4-8.2 g/dLAlbumin Level3.33.4- 5.0 g/dLGlobulin3.4Albumin Globulin Ratio1.0Performing Lab:see noteML - [facility] LBT4 Reviewed date:01/18/2025 09:02:22 PM Interpretation: Performing Lab: Notes/Report: [facility] ,T4 Thyroxine7.004.50-12.10 ug/dLPerforming Lab:see noteML - [facility] LBBNP Reviewed date:02/14/2025 07:52:08 PM Interpretation: Performing Lab: Notes/Report: [facility] ,NT Pro B Type Natriuretic Uqeh7011.0<=1800.0 pg/mLPerforming Lab:see noteML - [facility] LBDIRECT LDL Reviewed date:02/14/2025 07:52:08 PM Interpretation: Performing Lab: Notes/Report: [facility] ,LDL Cholesterol Dptkqg165 <100 mg/dl OPTIMAL 100-129 mg/dl NEAR OR ABOVE OPTIMAL 130-159 mg/dl BORDERLINE HIGH 160-189 mg/dl HIGH >190 mg/dl VERY HIGH Performing Lab:see noteML - [facility] LBGLYCOHEMOGLOBIN A1C Reviewed date:02/14/2025 07:52:08 PM Interpretation: Performing Lab: Notes/Report: [facility] ,Glycohemoglobin A1C11.14.5-6.2 % ADA RECOMMENDED LIMIT 4.0 - 6.0 ADA THERAPEUTIC TARGET < 7.0 ACTION SUGGESTED > 7.0 Estimated Average Peqysol334Qqeumpotes Lab:see noteML - [facility] LB MAGNESIUM Reviewed date:02/14/2025 07:52:08 PM Interpretation: Performing Lab: Notes/Report: [facility] ,Magnesium2.01.8-2.4 mg/dLPerforming Lab:see note - [facility] LB PROF 14(COMP METB) Reviewed date:02/14/2025 07:52:08 PM Interpretation: Performing Lab: Notes/Report: [facility] ,Qrwwuf139184-822 mmol/LPotassium4.33.5-5.1 mmol/ZLxlqlpgz08500-355 mmol/LCarbon Lbdbkgi83.021.0-32.0 mmol/LAnion Gap14.1Govyjic69366-974 mg/dLBlood Urea Bqppxfll62.07.0-18.0 mg/dLCreatinine1.770.70-1.30 mg/dLEstimated GFR ( Zntrsub58>=60 mL/min/1.73m 2Estimated GFR (Non- Ame37>=60 mL/min/1.73m 2 BUN Creatinine Ratio17.1Xpljjcm1.08.5-10.1 mg/dLBilirubin Total0.40.2-1.0 mg/dL Aspartate Amino Myovweidnua7054-08 U/LAlanine Gixmvvgyermwcerr3929-15 U/L Alkaline Gzoppbxntdz7283-950 U/LTotal Protein6.96.4-8.2 g/dLAlbumin Level3.43.4- 5.0 g/dLGlobulin3.5Albumin Globulin Ratio1.0Performing Lab:see noteML - [facility] LBUA (CLEAN or CATCH) PRESIDENT AND CHIEF COMMERCIAL OFFICER or MICRO IF IND. Reviewed date:02/14/2025 07:52:08 PM Interpretation: Performing Lab: Notes/Report: [facility] ,Color UrineLT. YELLOWYELLOWClarity UrineCLEARCLEARSpecific [place] Urine1.010 1.005-1.025pH Urine7.05.0-9.0Protein UrineNEGATIVENEG/TRACE mg/dLGlucose Urine UA>=1000NEGATIVE mg/dLBilirubin UrineNEGATIVENEGATIVEKetones UrineNEGATIVE NEGATIVE mg/dLBlood UrineNEGATIVENEGATIVENitrite UrineNEGATIVENEGATIVE Urobilinogen Urine0.20.2-1.0 EU/dLLeukocyte Esterase UrineNEGATIVENEGATIVEUrine Microscopic IndicatedNOPerforming Lab:see note - [facility] LB Troponin I High Sensitivity Reviewed date:02/14/2025 07:52:08 PM Interpretation: Performing Lab: Notes/Report: [facility] ,Troponin I High Yuvxuskmorp84.24.0-76.1 pg/mL CUT-OFF POINTS HAVE BEEN ESTABLISHED BASED ON THE FOURTH UNIVERSAL DEFINITION OF MYOCARDIAL INFARCTION. THE UPPER REFERENCE LIMIT (URL) OF TROPONIN, DEFINED THE 99TH PERCENTILE OF cTnI DISTRIBUTION IN A REFERENCE POPULATION, HAS BEEN CONFIRMED THE DECISION THRESHOLD FOR PA DIAGNOSIS. 99TH PERCENTILE = 76.2 PG/ML NOTE: HIGH-SENSITIVITY TROPONIN ASSAY IS NOT INTENDED TO BE USED IN ISOLATION BUT SHOULD BE INTERPRETED IN CONJUNCTION WITH OTHER DIAGNOSTIC AND CLINICAL INFORMATION. Performing Lab:see note - [facility] LBMR head/brain wo con Reviewed date:02/14/2025 07:52:09 PM Interpretation: Performing Lab: Notes/Report: Source Facility: [place] [address] Magnetic Resonance Report Signed Patient: NADIR HEREDIA MR#: [id number] : 1940 Acct:[id number] Age/Sex: 85 / M ADM Date: 02/14/25 Loc: MRI Attending Dr: Van Sung M.D. Ordering Physician: Van Sung M.D. Date of Service: 02/14/25 Procedure(s): MR head/brain wo con Accession Number(s): [id number] cc: Van Sung M.D. [place] [address] Patient Name: NADIR HEREDIA MRN: [id number] date: 1940 Sex: M Assigned Patient Location: MRI Current Patient Location: MRI Accession/Order Number: [id number] Exam Date: 02/14/2025 08:47 Report Date: 02/14/2025 [...] Radha Wright M.D.02/14/2025 9:20 AM Dictation Location: [place] [address] Electronically authenticated by: [id number] Y Date: 02/14/2025 09:20 Dictated By: Radha Wright M.D. Signed By: 02/14/25921 DD/ 9 TD/TT: [place] Joiner:CBC AUTO DIFF Reviewed date:02/15/2025 05:24:30 PM Interpretation: Performing Lab: Notes/Report: [facility] ,White Blood Count5.44.0-11.0 10 3/uLRed Blood Count3.544.70-6.10 10 6/uL Mpewjuoedx66.314.0-18.0 g/bQLwydxdkepv65.342.0-54.0 %Mean Corpuscular Xevjcs94.4 80.0-94.0 fLMean Corpuscular Sqmqzwktqk65.125.9-34.0 pgMean Corpuscular HGB Conc 32.929.9-35.2 g/dLRed Cell Distribution Width16.511.0-15.0 %Platelet Vucuh571 150-450 10 3/uLMean Platelet Hvytnq53.89.5-13.5 fLNeutrophils Percent Auto65.9 43.0-75.0 %Lymphocytes Percent Auto15.720.5-60.0 %Monocytes Percent Auto13.51.7- 12.0 %Eosinophils Percent Auto4.10.9-7.0 %Basophils Percent Auto0.60.2-2.0 % Immature Granulocytes Pct Auto0.20.0-0.5 %Neutrophils Absolute Auto3.51.4-6.5 10 3/uLLymphocytes Absolute Auto0.81.2-3.8 10 3/uLMonocytes Absolute Auto0.70.3- 0.8 10 3/uLEosinophils Absolute Auto0.20.0-0.7 10 3/uLBasophils Absolute Auto0.0 0.0-0.1 10 3/uLImmature Granulocytes Abs Auto0.010.00-0.03 10 3/uLPerforming Lab:see note - [facility] LBPROF CHEM 8 (BAS METB) Reviewed date:02/15/2025 05:24:30 PM Interpretation: Performing Lab: Notes/Report: [facility] ,Ssdvdp141871-078 mmol/LPotassium3.83.5-5.1 mmol/EMxhtylgr34397-392 mmol/LCarbon Kiielgx65.821.0-32.0 mmol/LAnion Gap15.5Dfabgqt64261-450 mg/dLBlood Urea Nqkorauu78.07.0-18.0 mg/dLCreatinine1.640.70-1.30 mg/dLEstimated GFR ( Okefext62>=60 mL/min/1.73m 2Estimated GFR (Non- Ame40>=60 mL/min/1.73m 2 BUN Creatinine Ratio20.8Ghchljg0.98.5-10.1 mg/dLPerforming Lab:see note - [facility] LBCA echo doppler complete Reviewed date:02/15/2025 05:24:30 PM Interpretation: Performing Lab: Notes/Report: Source Facility: [facility]-[address] [place] [address] [place] [address] Cardiology Report Signed Patient: NADIR HEREDIA MR#: [id number] : 1940 Acct:[id number] Age/Sex: 85 / M ADM Date: 02/14/25 Loc: MS 203-[address]: Van Sung M.D. Ordering Physician: Van Sung M.D. Date of Service: 02/15/25 Procedure(s): CA echo doppler complete Accession Number(s): [id number] cc: Van Sung M.D. Patient Name: NADIR HEREDIA MR#: [id number] : 1940 Exam Date: 02/15/2025 Ordering Doctor: [...] M.D. Signed By: 02/15/251631 DD/ 30 TD/TT: [place] Joiner:CBC AUTO DIFF Reviewed date:02/18/2025 03:43:48 PM Interpretation: Performing Lab: Notes/Report: [facility] ,White Blood Count8.24.0-11.0 10 3/uLRed Blood Count3.984.70-6.10 10 6/uL Soqkjeibpz53.314.0-18.0 g/tPBjpondyhnf30.542.0-54.0 %Mean Corpuscular Gnxgvy00.2 80.0-94.0 fLMean Corpuscular Ryzuzxqtgg47.425.9-34.0 pgMean Corpuscular HGB Conc 31.829.9-35.2 g/dLRed Cell Distribution Width16.911.0-15.0 %Platelet Dbqnk986 150-450 10 3/uLMean Platelet Eyxbge86.49.5-13.5 fLNeutrophils Percent Auto75.2 43.0-75.0 %Lymphocytes Percent Auto9.320.5-60.0 %Monocytes Percent Auto12.01.7- 12.0 %Eosinophils Percent Auto2.80.9-7.0 %Basophils Percent Auto0.50.2-2.0 % Immature Granulocytes Pct Auto0.20.0-0.5 %Neutrophils Absolute Auto6.21.4-6.5 10 3/uLLymphocytes Absolute Auto0.81.2-3.8 10 3/uLMonocytes Absolute Auto1.00.3- 0.8 10 3/uLEosinophils Absolute Auto0.20.0-0.7 10 3/uLBasophils Absolute Auto0.0 0.0-0.1 10 3/uLImmature Granulocytes Abs Auto0.020.00-0.03 10 3/uLPerforming Lab:see noteML - [facility] LBPROF CHEM 8 (BAS METB) Reviewed date:02/18/2025 03:43:48 PM Interpretation: Performing Lab: Notes/Report: [facility] ,Kmkuwx050797-997 mmol/LPotassium4.43.5-5.1 mmol/QMzrxakjk29090-281 mmol/LCarbon Erckuve99.721.0-32.0 mmol/LAnion Gap12.0Klimuix51397-679 mg/dLBlood Urea Purmlphb55.07.0-18.0 mg/dLCreatinine1.710.70-1.30 mg/dLEstimated GFR ( Uxeebzb06>=60 mL/min/1.73m 2Estimated GFR (Non- Ame38>=60 mL/min/1.73m 2 BUN Creatinine Ratio21.2Gugftxo8.08.5-10.1 mg/dLPerforming Lab:see note - [facility] LBBNP Reviewed date:03/08/2025 07:11:26 PM Interpretation: Performing Lab: Notes/Report: [facility] ,NT Pro B Type Natriuretic Vyml2087.0<=1800.0 pg/mLRESULTS CALLED TO RAULITO ROBERTO RNPerforming Lab:see note - [facility] LBCBC AUTO DIFF Reviewed date:03/08/2025 07:11:26 PM Interpretation: Performing Lab: Notes/Report: [facility] ,White Blood Count7.84.0-11.0 10 3/uLRed Blood Count3.754.70-6.10 10 6/uL Sedidwgpse85.414.0-18.0 g/bDGplpjrnhry62.442.0-54.0 %Mean Corpuscular Ishqfu90.1 80.0-94.0 fLMean Corpuscular Mrminrnscw02.725.9-34.0 pgMean Corpuscular HGB Conc 31.129.9-35.2 g/dLRed Cell Distribution Width17.911.0-15.0 %Platelet Skwzp453 150-450 10 3/uLMean Platelet Meufzz12.59.5-13.5 fLNeutrophils Percent Auto76.8 43.0-75.0 %Lymphocytes Percent Auto9.720.5-60.0 %Monocytes Percent Auto9.61.7- 12.0 %Eosinophils Percent Auto3.30.9-7.0 %Basophils Percent Auto0.50.2-2.0 % Immature Granulocytes Pct Auto0.10.0-0.5 %Neutrophils Absolute Auto6.01.4-6.5 10 3/uLLymphocytes Absolute Auto0.81.2-3.8 10 3/uLMonocytes Absolute Auto0.80.3- 0.8 10 3/uLEosinophils Absolute Auto0.30.0-0.7 10 3/uLBasophils Absolute Auto0.0 0.0-0.1 10 3/uLImmature Granulocytes Abs Auto0.010.00-0.03 10 3/uLPerforming Lab:see noteML - [facility] LBPROF CHEM 8 (BAS METB) Reviewed date:03/08/2025 07:11:26 PM Interpretation: Performing Lab: Notes/Report: [facility] ,Bqwlmd731409-155 mmol/LPotassium4.63.5-5.1 mmol/JJvvcvckv18708-177 mmol/LCarbon Jbhbbwa67.421.0-32.0 mmol/LAnion Gap12.5Gmhzodf19702-235 mg/dLBlood Urea Xkrcqblm59.07.0-18.0 mg/dLCreatinine1.790.70-1.30 mg/dLEstimated GFR ( Omiggkz53>=60 mL/min/1.73m 2Estimated GFR (Non- Ame36>=60 mL/min/1.73m 2 BUN Creatinine Ratio13.7Xzedrah2.98.5-10.1 mg/dLPerforming Lab:see noteML - [facility] LBTroponin I High Sensitivity Reviewed date:03/08/2025 07:11:26 PM Interpretation: Performing Lab: Notes/Report: [facility] ,Troponin I High Ehuvopivhtn73.54.0-76.1 pg/mL CUT-OFF POINTS HAVE BEEN ESTABLISHED BASED ON THE FOURTH UNIVERSAL DEFINITION OF MYOCARDIAL INFARCTION. THE UPPER REFERENCE LIMIT (URL) OF TROPONIN, DEFINED THE 99TH PERCENTILE OF cTnI DISTRIBUTION IN A REFERENCE POPULATION, HAS BEEN CONFIRMED THE DECISION THRESHOLD FOR PA DIAGNOSIS. 99TH PERCENTILE = 76.2 PG/ML NOTE: HIGH-SENSITIVITY TROPONIN ASSAY IS NOT INTENDED TO BE USED IN ISOLATION BUT SHOULD BE INTERPRETED IN CONJUNCTION WITH OTHER DIAGNOSTIC AND CLINICAL INFORMATION. Performing Lab:see noteML - [facility] LBECG 12 lead Reviewed date:03/08/2025 08:58:48 PM Interpretation: Performing Lab: Notes/Report: Source Facility: [facility]-[address] [place] [address] [place] [address] Electrocardiograph Report Signed Patient: NADIR HEREDIA MR#: [id number] : 1940 Acct:[id number] Age/Sex: 85 / M ADM Date: 03/08/25 Loc: ER Attending Dr: Ordering Physician: Flaco Haynes M.D. Date of Service: 03/08/25 Procedure(s): ECG 12 lead Accession Number(s): [id number] cc: [facility] Test Date: 2025-03-08 Pat Name: NADIR HEREDIA Department: Room: - Gender: Male Caretaker: : 1940 Requested By: 1030 Order Number: [id number] Reading MD: CLARIBEL PUGA M.D. Measurements Intervals [place] Rate: 70 P: -68296 PA: -74882 QRS: 48 QRSD: 100 T: 26 QT: 414 QTc: 435 Interpretive Statements 09994 Atrial fibrillation with aberrant conduction, or ventricular premature complexes 3113 Cannot rule out anterior myocardial infarction, probably old [address] depression, probably digitalis effect 9150 abnormal ECG Compared to ECG 02/14/2025 10:08:55 Ventricular premature complex(es) now present Aberrant conduction of supraventricular beat(s) now present Electronically Signed On 03-08-2025 20:43:48 EDT by CLARIBEL PUGA M.D. Dictated By: CLARIBEL PUGA Signed By: 03/08/252042 DD/ 4 TD/TT: [place] Joiner:Troponin I High Sensitivity Reviewed date:03/08/2025 07:11:26 PM Interpretation: Performing Lab: Notes/Report: [facility] ,Troponin I High Mxitpbnxwmo88.24.0-76.1 pg/mL CUT-OFF POINTS HAVE BEEN ESTABLISHED BASED ON THE FOURTH UNIVERSAL DEFINITION OF MYOCARDIAL INFARCTION. THE UPPER REFERENCE LIMIT (URL) OF TROPONIN, DEFINED THE 99TH PERCENTILE OF cTnI DISTRIBUTION IN A REFERENCE POPULATION, HAS BEEN CONFIRMED THE DECISION THRESHOLD FOR PA DIAGNOSIS. 99TH PERCENTILE = 76.2 PG/ML NOTE: HIGH-SENSITIVITY TROPONIN ASSAY IS NOT INTENDED TO BE USED IN ISOLATION BUT SHOULD BE INTERPRETED IN CONJUNCTION WITH OTHER DIAGNOSTIC AND CLINICAL INFORMATION. Performing Lab:see noteML - [facility] LBPROF CHEM 8 (BAS METB) Reviewed date:04/15/2025 04:42:40 PM Interpretation: Performing Lab: Notes/Report: [facility] ,[id number] mmol/LPotassium4.53.5-5.1 mmol/XXbvhbnhk46994-041 mmol/LCarbon Nlkyxjo23.821.0-32.0 mmol/LAnion Gap17.8Icuxwsv04841-038 mg/dLBlood Urea Bczmfvrt82.07.0-18.0 mg/dLCreatinine1.800.70-1.30 mg/dLEstimated GFR ( Eoealqg87>=60 mL/min/1.73m 2Estimated GFR (Non- Ame36>=60 mL/min/1.73m 2 BUN Creatinine Ratio17.4Yporkep3.98.5-10.1 mg/dLPerforming Lab:see note - [facility] LBUA (CLEAN or CATCH) PRESIDENT AND CHIEF COMMERCIAL OFFICER or MICRO IF IND. Reviewed date:05/09/2025 09:23:04 PM Interpretation: Performing Lab: Notes/Report: [facility] ,Color UrineLT. YELLOWYELLOWClarity UrineCLEARCLEARSpecific [place] Urine<=1.005 1.005-1.025pH Urine6.05.0-9.0Protein UrineNEGATIVENEG/TRACE mg/dLGlucose Urine UA>=1000NEGATIVE mg/dLBilirubin UrineNEGATIVENEGATIVEKetones UrineNEGATIVE NEGATIVE mg/dLBlood UrineNEGATIVENEGATIVENitrite UrineNEGATIVENEGATIVE Urobilinogen Urine0.20.2-1.0 EU/dLLeukocyte Esterase UrineNEGATIVENEGATIVEUrine Microscopic IndicatedNOPerforming Lab:see note - [facility] LBECG 12 lead Reviewed date:05/09/2025 09:23:04 PM Interpretation: Performing Lab: Notes/Report: Source Facility: [place] [address] [address] Electrocardiograph Report Signed Patient: NADIR HEREDIA MR#: [id number] : 1940 Acct:[id number] Age/Sex: 85 / M ADM Date: 05/08/25 Loc: ER Attending Dr: Ordering Physician: Flaco Haynes M.D. Date of Service: 05/08/25 Procedure(s): ECG 12 lead Accession Number(s): [id number] cc: [facility] Test Date: 2025-05-08 Pat Name: NADIR HEREDIA Department: Room: - Gender: Male Caretaker: : 1940 Requested By: [id number] Order Number: [id number] Reading MD: CLARIBEL PUGA M.D. Measurements Intervals [place] Rate: 70 P: -[id number] PA: -[id number] QRS: 66 QRSD: 94 T: 66 QT: 408 QTc: 429 Interpretive Statements 1210 Atrial fibrillation 3433 Septal myocardial infarction, probably old [address] depression, probably digitalis effect 9150 abnormal ECG Compared to ECG 03/08/2025 09:45:12 Aberrant conduction of supraventricular beat(s) no longer present Myocardial infarct finding still present ST (T wave) deviation still present Electronically Signed On 05-08-2025 22:01:26 EDT by CLARIBEL PUGA M.D. Dictated By: CLARIBEL PUGA Signed By: 05/08/25 2201 DD/ 1840 TD/TT: [place] Joiner:CBC AUTO DIFF Reviewed date:05/09/2025 09:23:04 PM Interpretation: Performing Lab: Notes/Report: [facility] ,White Blood Count9.04.0-11.0 10 3/uLRed Blood Count3.764.70-6.10 10 6/uL Hemoglobin9.914.0-18.0 g/nDGpvxnnnsgr78.642.0-54.0 %Mean Corpuscular Yrjxfq48.0 80.0-94.0 fLMean Corpuscular Jejxtphenl36.325.9-34.0 pgMean Corpuscular HGB Conc 31.329.9-35.2 g/dLRed Cell Distribution Width19.011.0-15.0 %Platelet Odnvq245 150-450 10 3/uLMean Platelet Jjmndt28.49.5-13.5 fLNeutrophils Percent Auto74.5 43.0-75.0 %Lymphocytes Percent Auto10.220.5-60.0 %Monocytes Percent Auto12.91.7- 12.0 %Eosinophils Percent Auto1.40.9-7.0 %Basophils Percent Auto0.30.2-2.0 % Immature Granulocytes Pct Auto0.70.0-0.5 %Neutrophils Absolute Auto6.71.4-6.5 10 3/uLLymphocytes Absolute Auto0.91.2-3.8 10 3/uLMonocytes Absolute Auto1.20.3- 0.8 10 3/uLEosinophils Absolute Auto0.10.0-0.7 10 3/uLBasophils Absolute Auto0.0 0.0-0.1 10 3/uLImmature Granulocytes Abs Auto0.060.00-0.03 10 3/uLPerforming Lab:see noteML - [facility] LBCBC no Diff (Hemogram) Reviewed date:05/09/2025 09:23:04 PM Interpretation: Performing Lab: Notes/Report: [facility] ,White Blood Count10.04.0-11.0 10 3/uLRed Blood Count4.134.70-6.10 10 6/uL Bvstwuqsli41.714.0-18.0 g/jQUulmmrovhv31.042.0-54.0 %Mean Corpuscular Xbkiab70.3 80.0-94.0 fLMean Corpuscular Wzbersilqt11.925.9-34.0 pgMean Corpuscular HGB Conc 31.529.9-35.2 g/dLRed Cell Distribution Width19.011.0-15.0 %Platelet Njdib946 150-450 10 3/uLMean Platelet Gcxctl31.99.5-13.5 fLPerforming Lab:see noteML - [facility] LBCT chest wo con Reviewed date:05/27/2025 04:12:29 PM Interpretation: Performing Lab: Notes/Report: Source Facility: [facility]-[address] [place] [address] [place] [address] CT Scan Report Signed Patient: NADIR HEREDIA MR#: [id number] : 1940 Acct:[id number] Age/Sex: 85 / M ADM Date: 05/25/25 Loc: CT Attending Dr: Van Sung M.D. Ordering Physician: Van Sung M.D. Date of Service: 05/25/25 Procedure(s): CT chest wo con Accession Number(s): [id number] cc: Van Sung M.D. [place] [address] Patient Name: NADIR HEREDIA MRN: [id number] date: 1940 Sex: M Assigned Patient Location: CT Current Patient Location: CT Accession/Order Number: [id number] Exam Date: 05/25/2025 19:35 Report Date: 05/25/2025 [...] Doll M.D. 05/25/2025 7:38 PM Dictation Location: [place] [address] Electronically authenticated by: [id number] Y Date: 05/25/2025 19:38 Dictated By: Carlos Doll M.D. Signed By: 05/25/251940 DD/ 37 TD/TT: [place] Joiner:CBC AUTO DIFF Reviewed date:05/28/2025 06:07:27 PM Interpretation: Performing Lab: Notes/Report: [facility] ,White Blood Count8.94.0-11.0 10 3/uLRed Blood Count3.694.70-6.10 10 6/uL Hemoglobin9.414.0-18.0 g/mLStuhjyvsaa52.842.0-54.0 %Mean Corpuscular Ocexex03.5 80.0-94.0 fLMean Corpuscular Zpnnvnblvm64.525.9-34.0 pgMean Corpuscular HGB Conc 30.529.9-35.2 g/dLRed Cell Distribution Width19.911.0-15.0 %Platelet Zemrz172 150-450 10 3/uLMean Platelet Vbofvm74.89.5-13.5 fLNeutrophils Percent Auto78.5 43.0-75.0 %Lymphocytes Percent Auto8.120.5-60.0 %Monocytes Percent Auto10.51.7- 12.0 %Eosinophils Percent Auto1.90.9-7.0 %Basophils Percent Auto0.70.2-2.0 % Immature Granulocytes Pct Auto0.30.0-0.5 %Neutrophils Absolute Auto7.01.4-6.5 10 3/uLLymphocytes Absolute Auto0.71.2-3.8 10 3/uLMonocytes Absolute Auto0.90.3- 0.8 10 3/uLEosinophils Absolute Auto0.20.0-0.7 10 3/uLBasophils Absolute Auto0.1 0.0-0.1 10 3/uLImmature Granulocytes Abs Auto0.030.00-0.03 10 3/uLPerforming Lab:see note - [facility] LBPROF CHEM 8 (BAS METB) Reviewed date:05/28/2025 06:07:27 PM Interpretation: Performing Lab: Notes/Report: [facility] ,Wqktvx180103-964 mmol/LPotassium4.83.5-5.1 mmol/FSehmbmgu74844-357 mmol/LCarbon Pbmpnbi60.921.0-32.0 mmol/LAnion Gap18.0Negoegm00968-924 mg/dLBlood Urea Pabuhttg50.07.0-18.0 mg/dLCreatinine1.820.70-1.30 mg/dLEstimated GFR ( Yhdyjau46>=60 mL/min/1.73m 2Estimated GFR (Non- Ame35>=60 mL/min/1.73m 2 BUN Creatinine Ratio17.9Fyjvvdy3.18.5-10.1 mg/dLPerforming Lab:see note - [facility] LBALBUMIN Reviewed date:07/18/2025 12:42:27 PM Interpretation: Performing Lab: Notes/Report: [facility] ,Albumin Level3.53.4-5.0 g/dLPerforming Lab:[facility] noteOhio[facility] LBGLYCOHEMOGLOBIN A1C Reviewed date:07/18/2025 12:42:27 PM Interpretation: Performing Lab: Notes/Report: [facility] ,Glycohemoglobin A1C8.04.5-6.2 % ADA RECOMMENDED LIMIT 4.0 - 6.0 ADA THERAPEUTIC TARGET < 7.0 ACTION SUGGESTED > 7.0 Estimated Average Sycfucl008Puddarqrza Lab:see note - [facility] LB HEMOGLOBIN Reviewed date:07/18/2025 12:42:27 PM Interpretation: Performing Lab: Notes/Report: [facility] ,Xdjppfajud94.314.0-18.0 g/dLPerforming Lab:see noteOhio[facility] LBLIPID PROFILE Reviewed date:07/18/2025 12:42:27 PM Interpretation: Performing Lab: Notes/Report: [facility] ,Hknnwetqqhomo63<=150 mg/jFFmzkaucgyzz747<=200 mg/dLHDL Jpmlhxqovps2828-03 mg/dL > or =60 mg/dl - LOW CARDIOVASCULAR RISK <40 mg/dl - HIGH CARDIOVASCULAR RISK LDL Cholesterol Avwlcmdrgp669.0 <100 mg/dl OPTIMAL 100-129 mg/dl NEAR OR ABOVE OPTIMAL 130-159 mg/dl BORDERLINE HIGH 160-189 mg/dl HIGH >190 mg/dl VERY HIGH VLDL TPRQCAXNLGX75.6Chol HDL Ratio2.4 3.3 - 4.4 LOW RISK 4.4 - 7.1 AVERAGE RISK 7.1 - 11.0 MODERATE RISK >11.0 HIGH RISK Performing Lab:see noteML - [facility] LBLIVER PROFILE Reviewed date:07/18/2025 12:42:27 PM Interpretation: Performing Lab: Notes/Report: [facility] ,Bilirubin Total0.50.2-1.0 mg/dLBilirubin Direct0.10.0-0.2 mg/dLAspartate Amino Nqzrovjiepv5161-65 U/LAlanine Yoyicuiembxxttwu4317-80 U/LAlkaline Eevbwgttyzy38 46-116 U/LTotal Protein7.86.4-8.2 g/dLAlbumin Level3.43.4-5.0 g/dLGlobulin4.4 Albumin Globulin Ratio0.8Performing Lab:see noteML - [facility] LB MAGNESIUM Reviewed date:07/18/2025 12:42:27 PM Interpretation: Performing Lab: Notes/Report: [facility] ,Magnesium1.91.8-2.4 mg/dLPerforming Lab:see note - [facility] LB PHOSPHORUS Reviewed date:07/18/2025 12:42:27 PM Interpretation: Performing Lab: Notes/Report: [facility] ,Phosphorus3.62.6-4.7 mg/dLPerforming Lab:see note - [facility] LB PROF CHEM 8 (BAS METB) Reviewed date:07/18/2025 12:42:27 PM Interpretation: Performing Lab: Notes/Report: [facility] ,Sbwfdr700378-683 mmol/LPotassium4.53.5-5.1 mmol/MAzlshsej24071-152 mmol/LCarbon Rmtrolh04.721.0-32.0 mmol/LAnion Gap15.6Vozcxjn02312-095 mg/dLBlood Urea Qdyswyjb07.07.0-18.0 mg/dLCreatinine1.670.70-1.30 mg/dLEstimated GFR ( Sjcygtj64>=60 mL/min/1.73m 2Estimated GFR (Non- Ame39>=60 mL/min/1.73m 2 BUN Creatinine Ratio23.9Ngcdikx1.38.5-10.1 mg/dLPerforming Lab:see note - [facility] LBURINE T PROTEIN CREAT RATIO Reviewed date:07/18/2025 12:42:27 PM Interpretation: Performing Lab: Notes/Report: [facility] ,Total Protein Urine Evydqp95.0<=11.9 mg/dLCreatinine Urine Lzhpvd72.5420.00- 300.00 mg/dLProtein Creatinine Ratio Urine0.19Performing Lab:see noteOhio[facility] LBVITAMIN D 25 [place] Reviewed date:07/18/2025 12:42:27 PM Interpretation: Performing Lab: Notes/Report: [facility] ,Vitamin D34.1 <20 ng/mL Vit D deficient 20-<30 ng/mL Vit D insufficient 30-100 ng/mL Vit D sufficient >100 ng/mL Potential Toxicity Performing Lab:see [facility] LBBKV Quant PCR Reviewed date:07/18/2025 08:32:26 PM Interpretation: Performing Lab: Notes/Report: [facility] ,BKV DNA, Quant PCR, PlasmaNegativeNegative IU/mL No BK DNA detected. The linear range of the assay is 22 - 100,000,000 IU/mL. Performed at: [address] [id number] [employer]: Asael Pressley PhD, Phone: [phone] BKV DNA,PlasmaTNP.Performing Lab:see noteSky [facility] LBUA RANDOM W or MICROSCOPIC Reviewed date:09/04/2025 05:52:50 PM Interpretation: Performing Lab: Notes/Report: [facility] ,Color UrineLT. YELLOWYELLOWClarity UrineCLEARCLEARSpecific [place] Urine1.010 1.005-1.025pH Urine6.05.0-9.0Protein UrineNEGATIVENEG/TRACE mg/dLGlucose Urine UA>=1000NEGATIVE mg/dLBilirubin UrineNEGATIVENEGATIVEKetones UrineNEGATIVE NEGATIVE mg/dLBlood UrineNEGATIVENEGATIVENitrite UrineNEGATIVENEGATIVE Urobilinogen Urine0.20.2-1.0 EU/dLLeukocyte Esterase UrineNEGATIVENEGATIVEWBC Urine0-2NONE SEEN #/HPFRBC Urine0-20-2 #/HPFBacteria UrineNONE SEENNONE SEEN #/HPFMucus UrineNONE SEENNONE SEENSquamous Epithelial Cell UrineRARENONE/RARE #/LPFCrystals Seen?None SeenNone Seen #/HPFCast Seen?SEENNONE SEEN #/LPFHyaline Casts UrineRAREYeast UrineSEENNONE SEENUrine Culture IndicatedALREADY ORDERED Performing Lab:see note - [facility] LBUrine Culture - [facility] Reviewed date:09/06/2025 04:09:47 PM Interpretation: Performing Lab: Notes/Report: [facility] ,Urine Culture - FRMCSee Below For Report Urine Culture - [facility] <9,000 colonies/ml mixed Urine Culture - FRMCbacterial skin contaminants Urine Culture - [facility] <9,000 colonies/ml mixed Urine Culture - [facility]2 Days Urine Culture - [facility] <9,000 colonies/ml mixed Urine Culture - [facility] Urine Culture - [facility] <9,000 colonies/ml mixed Urine Culture - [facility]MCTesting [facility] Urine Culture - [facility] <9,000 colonies/ml mixed Urine Culture - [id number] [place] [address] Urine Culture - [facility] <9,000 colonies/ml mixed Performing Lab:see noteML - [facility] LBBNP Reviewed date:09/15/2025 12:27:16 PM Interpretation: Performing Lab: Notes/Report: [facility] ,NT Pro B Type Natriuretic Hxga4023.0<=1800.0 pg/mLRESULTS CALLED TO Mikhail COLLADOforminkelsey Lab:see note - [facility] LBPROF CHEM 8 (BAS METB) Reviewed date:09/15/2025 12:27:16 PM Interpretation: Performing Lab: Notes/Report: [facility] ,Vkngiu211909-108 mmol/LPotassium4.53.5-5.1 mmol/RKuuxygxr83613-142 mmol/LCarbon Xliavqw28.421.0-32.0 mmol/LAnion Gap14.9Ackqoby36914-783 mg/dLBlood Urea Dixakaoy71.07.0-18.0 mg/dLCreatinine2.190.70-1.30 mg/dLEstimated GFR ( Ktutqgc96>=60 mL/min/1.73m 2Estimated GFR (Non- Ame29>=60 mL/min/1.73m 2 BUN Creatinine Ratio16.8Ccbojhh4.68.5-10.1 mg/dLPerforming Lab:see noteML - [facility] LBCA echo limited Reviewed date:05/09/2025 09:23:04 PM Interpretation: Performing Lab: Notes/Report: Source Facility: [facility]-[address] [place] [address] Cardiology Report Signed Patient: NADIR HEREDIA MR#: [id number] : 1940 Acct:[id number] Age/Sex: 85 / M ADM Date: 05/08/25 Loc: MS 215-[address]: Van Sung M.D. Ordering Physician: Toby Piedra M.D. Date of Service: 05/09/25 Procedure(s): CA echo limited Accession Number(s): [id number] cc: Toby Piedra M.D.; Van Sung M.D. Patient Name: NADIR HEREDIA MR#: [id number] : 1940 Exam Date: 05/09/2025 Ordering Doctor: [...] PUGA Signed By: 05/09/251920 DD/ 19 TD/TT: [place] Joiner:Troponin I High Sensitivity Reviewed date:05/09/2025 09:23:04 PM Interpretation: Performing Lab: Notes/Report: [facility] ,Troponin I High Bcjringbrxs25.94.0-76.1 pg/mL CUT-OFF POINTS HAVE BEEN ESTABLISHED BASED ON THE FOURTH UNIVERSAL DEFINITION OF MYOCARDIAL INFARCTION. THE UPPER REFERENCE LIMIT (URL) OF TROPONIN, DEFINED THE 99TH PERCENTILE OF cTnI DISTRIBUTION IN A REFERENCE POPULATION, HAS BEEN CONFIRMED THE DECISION THRESHOLD FOR PA DIAGNOSIS. 99TH PERCENTILE = 76.2 PG/ML NOTE: HIGH-SENSITIVITY TROPONIN ASSAY IS NOT INTENDED TO BE USED IN ISOLATION BUT SHOULD BE INTERPRETED IN CONJUNCTION WITH OTHER DIAGNOSTIC AND CLINICAL INFORMATION. Performing Lab:see note - [facility] LBPROF CHEM 8 (BAS METB) Reviewed date:05/09/2025 09:23:04 PM Interpretation: Performing Lab: Notes/Report: [facility] ,Ptuwyz460425-663 mmol/LPotassium4.03.5-5.1 mmol/KPmavnjau40531-204 mmol/LCarbon Qxetqew40.521.0-32.0 mmol/LAnion Gap14.3Izxgoum34302-791 mg/dLBlood Urea Ejoucofn95.07.0-18.0 mg/dLCreatinine1.770.70-1.30 mg/dLEstimated GFR ( Rlpqfyz24>=60 mL/min/1.73m 2Estimated GFR (Non- Ame37>=60 mL/min/1.73m 2 BUN Creatinine Ratio18.5Nqlgaoi7.38.5-10.1 mg/dLPerforming Lab:see note - [facility] LBMAGNESIUM Reviewed date:05/09/2025 09:23:04 PM Interpretation: Performing Lab: Notes/Report: [facility] ,Magnesium2.21.8-2.4 mg/dLPerforming Lab:see note - [facility] LB Troponin I High Sensitivity Reviewed date:05/09/2025 09:23:04 PM Interpretation: Performing Lab: Notes/Report: [facility] ,Troponin I High Jhyywcmhdjw60.44.0-76.1 pg/mL CUT-OFF POINTS HAVE BEEN ESTABLISHED BASED ON THE FOURTH UNIVERSAL DEFINITION OF MYOCARDIAL INFARCTION. THE UPPER REFERENCE LIMIT (URL) OF TROPONIN, DEFINED THE 99TH PERCENTILE OF cTnI DISTRIBUTION IN A REFERENCE POPULATION, HAS BEEN CONFIRMED THE DECISION THRESHOLD FOR PA DIAGNOSIS. 99TH PERCENTILE = 76.2 PG/ML NOTE: HIGH-SENSITIVITY TROPONIN ASSAY IS NOT INTENDED TO BE USED IN ISOLATION BUT SHOULD BE INTERPRETED IN CONJUNCTION WITH OTHER DIAGNOSTIC AND CLINICAL INFORMATION. Performing Lab:see note - [facility] LBTroponin I High Sensitivity Reviewed date:05/09/2025 09:23:04 PM Interpretation: Performing Lab: Notes/Report: [facility] ,Troponin I High Rriujbvxixa67.04.0-76.1 pg/mL CUT-OFF POINTS HAVE BEEN ESTABLISHED BASED ON THE FOURTH UNIVERSAL DEFINITION OF MYOCARDIAL INFARCTION. THE UPPER REFERENCE LIMIT (URL) OF TROPONIN, DEFINED THE 99TH PERCENTILE OF cTnI DISTRIBUTION IN A REFERENCE POPULATION, HAS BEEN CONFIRMED THE DECISION THRESHOLD FOR PA DIAGNOSIS. 99TH PERCENTILE = 76.2 PG/ML NOTE: HIGH-SENSITIVITY TROPONIN ASSAY IS NOT INTENDED TO BE USED IN ISOLATION BUT SHOULD BE INTERPRETED IN CONJUNCTION WITH OTHER DIAGNOSTIC AND CLINICAL INFORMATION. Performing Lab:[facility] noteOhio[facility] LBPROF CHEM 8 (BAS METB) Reviewed date:05/09/2025 09:23:04 PM Interpretation: Performing Lab: Notes/Report: [facility] ,Edsvtu807430-837 mmol/LPotassium4.73.5-5.1 mmol/UOdmxwvzf45759-391 mmol/LCarbon Uudihnt55.221.0-32.0 mmol/LAnion Gap12.3Oxkudfb34739-297 mg/dLBlood Urea Wgagyjeg84.07.0-18.0 mg/dLCreatinine1.900.70-1.30 mg/dLEstimated GFR ( Zqadyro62>=60 mL/min/1.73m 2Estimated GFR (Non- Ame34>=60 mL/min/1.73m 2 BUN Creatinine Ratio15.3Smlueav3.08.5-10.1 mg/dLPerforming Lab:see note - [facility] LBPROF 14(COMP METB) Reviewed date:05/09/2025 09:23:04 PM Interpretation: Performing Lab: Notes/Report: [facility] ,Zyiqfq391155-275 mmol/LPotassium4.93.5-5.1 mmol/VYqygnfuv13285-150 mmol/LCarbon Mvrgltw66.821.0-32.0 mmol/LAnion Gap14.2Tcnsxlp77320-987 mg/dLBlood Urea Ufnrqxzl71.07.0-18.0 mg/dLCreatinine1.800.70-1.30 mg/dLEstimated GFR ( Npzttbd95>=60 mL/min/1.73m 2Estimated GFR (Non- Ame36>=60 mL/min/1.73m 2 BUN Creatinine Ratio15.4Gqezcjc0.28.5-10.1 mg/dLBilirubin Total0.40.2-1.0 mg/dL Aspartate Amino Uvufutrcavl7223-93 U/LAlanine Mwhkoxcmzmzidknk8213-35 U/L Alkaline Bwldhjvaltv9652-889 U/LTotal Protein6.86.4-8.2 g/dLAlbumin Level2.93.4- 5.0 g/dLGlobulin3.9Albumin Globulin Ratio0.7Performing Lab:see noteML - [facility] LBCBC AUTO DIFF Reviewed date:05/09/2025 09:23:04 PM Interpretation: Performing Lab: Notes/Report: [facility] ,White Blood Count8.14.0-11.0 10 3/uLRed Blood Count3.814.70-6.10 10 6/uL Gzphfcuuqv12.014.0-18.0 g/yDXqpqprdaep21.042.0-54.0 %Mean Corpuscular Rkizbb68.0 80.0-94.0 fLMean Corpuscular Aufvgfdtfo44.225.9-34.0 pgMean Corpuscular HGB Conc 31.329.9-35.2 g/dLRed Cell Distribution Width19.011.0-15.0 %Platelet Fiqur215 150-450 10 3/uLMean Platelet Qftgxc65.29.5-13.5 fLNeutrophils Percent Auto77.8 43.0-75.0 %Lymphocytes Percent Auto8.620.5-60.0 %Monocytes Percent Auto11.31.7- 12.0 %Eosinophils Percent Auto1.20.9-7.0 %Basophils Percent Auto0.40.2-2.0 % Immature Granulocytes Pct Auto0.70.0-0.5 %Neutrophils Absolute Auto6.31.4-6.5 10 3/uLLymphocytes Absolute Auto0.71.2-3.8 10 3/uLMonocytes Absolute Auto0.90.3- 0.8 10 3/uLEosinophils Absolute Auto0.10.0-0.7 10 3/uLBasophils Absolute Auto0.0 0.0-0.1 10 3/uLImmature Granulocytes Abs Auto0.060.00-0.03 10 3/uLPerforming Lab:see noteML - [facility] LBBNP Reviewed date:05/09/2025 09:23:04 PM Interpretation: Performing Lab: Notes/Report: [facility] ,NT Pro B Type Natriuretic Eaje9840.0<=1800.0 pg/mLRESULTS CALLED TO DR. NASH CARABALLO at 1926Performing Lab:see noteML - [facility] LBECG 12 lead Reviewed date:02/14/2025 07:52:08 PM Interpretation: Performing Lab: Notes/Report: Source Facility: [place] [address] Electrocardiograph Report Signed Patient: NADIR HEREDIA MR#: [id number] : 1940 Acct:[id number] Age/Sex: 85 / M ADM Date: 02/14/25 Loc: MS 203-[address]: Van Sung M.D. Ordering Physician: Josie Astudillo Date of Service: 02/14/25 Procedure(s): ECG 12 lead Accession Number(s): [id number] cc: [facility] Test Date: 2025-02-14 Pat Name: NADIR HEREDIA Department: Room: - Gender: Male Caretaker: : 1940 Requested By: 1854 Order Number: [id number] Cristina MD: CLARIBEL PUGA M.D. Measurements Intervals [place] Rate: 75 P: -22070 PA: -27943 QRS: -60 QRSD: 100 T: 68 QT: [...] Signed By: 02/14/25 1728 DD/ 1008 TD/TT: [place] Joiner:Prothrombin Time INR Reviewed date:02/14/2025 07:52:08 PM Interpretation: Performing Lab: Notes/Report: [facility] ,Prothrombin Time10.79.0-11.6 secINR1.01 DESIRED INR: 2.0-3.0 CONDITIONS NOT LISTED BELOW 2.5-3.5 FOR PROSTHETIC HEART VALVE REPLACEMENT 2.5-3.5 RECURRENT THROMBOSIS Performing Lab:see noteML - [facility] LBCBC AUTO DIFF Reviewed date:02/14/2025 07:52:08 PM Interpretation: Performing Lab: Notes/Report: [facility] ,White Blood Count8.14.0-11.0 10 3/uLRed Blood Count3.844.70-6.10 10 6/uL Duqganxzjv19.114.0-18.0 g/qHUvosbzjksy44.642.0-54.0 %Mean Corpuscular Wbiryg56.1 80.0-94.0 fLMean Corpuscular Elfofxnvqd17.925.9-34.0 pgMean Corpuscular HGB Conc 32.129.9-35.2 g/dLRed Cell Distribution Width16.611.0-15.0 %Platelet Scntg369 150-450 10 3/uLMean Platelet Sflane26.69.5-13.5 fLNeutrophils Percent Auto81.1 43.0-75.0 %Lymphocytes Percent Auto8.420.5-60.0 %Monocytes Percent Auto7.61.7- 12.0 %Eosinophils Percent Auto2.00.9-7.0 %Basophils Percent Auto0.40.2-2.0 % Immature Granulocytes Pct Auto0.50.0-0.5 %Neutrophils Absolute Auto6.61.4-6.5 10 3/uLLymphocytes Absolute Auto0.71.2-3.8 10 3/uLMonocytes Absolute Auto0.60.3- 0.8 10 3/uLEosinophils Absolute Auto0.20.0-0.7 10 3/uLBasophils Absolute Auto0.0 0.0-0.1 10 3/uLImmature Granulocytes Abs Auto0.040.00-0.03 10 3/uLPerforming Lab:see noteML - [facility] LBLower Respiratory Culture Reviewed date:01/25/2025 07:33:24 PM Interpretation: Performing Lab: Notes/Report: [facility] ,Lower Respiratory CultureSee Below For Report Lower Respiratory Culture WILL FOLLOW Lower Respiratory CultureRoutine respiratory shreya Lower Respiratory Culture WILL FOLLOW Lower Respiratory CulturePerformed at: - [facility] [place] Lower Respiratory Culture WILL FOLLOW Lower Respiratory [address] [place], [place] [id number] Lower Respiratory Culture WILL FOLLOW Lower Respiratory CultureLab Director: Asael Pressley PhD, Phone: [phone] Lower Respiratory Culture WILL FOLLOW Performing Lab:see note LC - [facility] LB SEE REPORT - [place] Id information not found for OBX-specific blueprint reproducer legend Gram Stain Evaluation Reviewed date:01/25/2025 07:33:24 [...] ,Result 4See Below For Report Result 4 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 Performing Lab:see noteLC - [facility] LBResult 3 [...] Blood Cells Performing Lab:see noteLC - [facility] LBTSH Reviewed date:01/18/2025 09:02:22 PM Interpretation: Performing Lab: Notes/Report: [facility] ,Thyroid Stimulating Hormone1.4720.358-3.740 uIU/mLPerforming Lab:see note - [facility] LBVITAMIN D 25 [place] Reviewed date:12/24/2024 11:26:08 AM Interpretation: Performing Lab: Notes/Report: [facility] ,Vitamin D19.7 <20 ng/mL Vit D deficient 20-<30 ng/mL Vit D insufficient 30-100 ng/mL Vit D sufficient >100 ng/mL Potential Toxicity Performing Lab:see note - [facility] LBURINE T PROTEIN CREAT RATIO Reviewed date:12/24/2024 11:26:08 AM Interpretation: Performing Lab: Notes/Report: [facility] ,Total Protein Urine Yewvsr85.3<=11.9 mg/dLCreatinine Urine Lmnaya22.4620.00- 300.00 mg/dLProtein Creatinine Ratio Urine0.27Performing Lab:see note - [facility] LBPROF CHEM 8 (BAS METB) Reviewed date:12/24/2024 11:26:08 AM Interpretation: Performing Lab: Notes/Report: [facility] ,Vfmyux231347-609 mmol/LPotassium4.63.5-5.1 mmol/UJghqsihd24760-773 mmol/LCarbon Roumxsc21.121.0-32.0 mmol/LAnion Gap13.3Ziedbye26378-140 mg/dLBlood Urea Zdiidtpv20.07.0-18.0 mg/dLCreatinine1.570.70-1.30 mg/dLEstimated GFR ( Blitdip37>=60 mL/min/1.73m 2Estimated GFR (Non- Ame42>=60 mL/min/1.73m 2 BUN Creatinine Ratio15.8Neudezj8.78.5-10.1 mg/dLPerforming Lab:see noteML - [facility] LBPHOSPHORUS Reviewed date:12/24/2024 11:26:08 AM Interpretation: Performing Lab: Notes/Report: [facility] ,Phosphorus3.72.6-4.7 mg/dLPerforming Lab:see noteML - [facility] LB MAGNESIUM Reviewed date:12/24/2024 11:26:08 AM Interpretation: Performing Lab: Notes/Report: [facility] ,Magnesium2.21.8-2.4 mg/dLPerforming Lab:see noteML - [facility] LB ALBUMIN Reviewed date:12/24/2024 11:26:08 AM Interpretation: Performing Lab: Notes/Report: [facility] ,Albumin Level3.33.4-5.0 g/dLPerforming Lab:see noteML - [facility] LBPROF CHEM 8 (BAS METB) Reviewed date:10/31/2024 12:23:54 PM Interpretation: Performing Lab: Notes/Report: [facility] ,[id number] mmol/LPotassium4.63.5-5.1 mmol/KHoxqefip36021-181 mmol/LCarbon Hscuzbp25.121.0-32.0 mmol/LAnion Gap15.2Djqdeoh73615-224 mg/dLBlood Urea Zgubjluh58.07.0-18.0 mg/dLCreatinine1.690.70-1.30 mg/dLEstimated GFR ( Lefkeay82>=60 mL/min/1.73m 2Estimated GFR (Non- Ame39>=60 mL/min/1.73m 2 BUN Creatinine Ratio17.9Pdeqwcw0.38.5-10.1 mg/dLPerforming Lab:see noteML - [facility] LBCBC AUTO DIFF Reviewed date:10/31/2024 12:23:54 PM Interpretation: Performing Lab: Notes/Report: [facility] ,White Blood Count11.94.0-11.0 10 3/uLRed Blood Count3.064.70-6.10 10 6/uL Tktohbkgdv75.514.0-18.0 g/zDBrhlmjhmmb12.842.0-54.0 %Mean Corpuscular Volume 103.980.0-94.0 fLMean Corpuscular Comrpvhrkq36.325.9-34.0 pgMean Corpuscular HGB Conc33.029.9-35.2 g/dLRed Cell Distribution Width14.611.0-15.0 %Platelet Count 258427-033 10 3/uLMean Platelet Lbbaeg18.69.5-13.5 fLNeutrophils Percent Auto 74.643.0-75.0 %Lymphocytes Percent Auto10.820.5-60.0 %Monocytes Percent Auto11.8 1.7-12.0 %Eosinophils Percent Auto1.70.9-7.0 %Basophils Percent Auto0.30.2-2.0 % Immature Granulocytes Pct Auto0.80.0-0.5 %Neutrophils Absolute Auto8.91.4-6.5 10 3/uLLymphocytes Absolute Auto1.31.2-3.8 10 3/uLMonocytes Absolute Auto1.40.3- 0.8 10 3/uLEosinophils Absolute Auto0.20.0-0.7 10 3/uLBasophils Absolute Auto0.0 0.0-0.1 10 3/uLImmature Granulocytes Abs Auto0.090.00-0.03 10 3/uLPerforming Lab:see noteML - [facility] LBPROF CHEM 8 (BAS METB) Reviewed date:10/30/2024 02:21:51 PM Interpretation: Performing Lab: Notes/Report: [facility] ,Yvgqzf142645-399 mmol/LPotassium4.33.5-5.1 mmol/ZDaskgitl61283-872 mmol/LCarbon Lrriycj03.321.0-32.0 mmol/LAnion Gap16.3Zhihjlh73597-789 mg/dLBlood Urea Ucswewts64.07.0-18.0 mg/dLCreatinine1.870.70-1.30 mg/dLEstimated GFR ( Ljdpcyj44>=60 mL/min/1.73m 2Estimated GFR (Non- Ame34>=60 mL/min/1.73m 2 BUN Creatinine Ratio19.3Gynelmv4.98.5-10.1 mg/dLPerforming Lab:see noteML - [facility] LBCBC AUTO DIFF Reviewed date:10/30/2024 02:21:51 PM Interpretation: Performing Lab: Notes/Report: [facility] ,White Blood Count14.04.0-11.0 10 3/uLRed Blood Count3.404.70-6.10 10 6/uL Cqfnxobybw04.614.0-18.0 g/pBMbmlyrajlj72.342.0-54.0 %Mean Corpuscular Volume 103.880.0-94.0 fLMean Corpuscular Xtyeszxgnh27.125.9-34.0 pgMean Corpuscular HGB Conc32.929.9-35.2 g/dLRed Cell Distribution Width14.611.0-15.0 %Platelet Count 118421-601 10 3/uLMean Platelet Aprfrx91.19.5-13.5 fLNeutrophils Percent Auto 79.143.0-75.0 %Lymphocytes Percent Auto9.420.5-60.0 %Monocytes Percent Auto9.9 1.7-12.0 %Eosinophils Percent Auto0.90.9-7.0 %Basophils Percent Auto0.20.2-2.0 % Immature Granulocytes Pct Auto0.50.0-0.5 %Neutrophils Absolute Auto11.11.4-6.5 10 3/uLLymphocytes Absolute Auto1.31.2-3.8 10 3/uLMonocytes Absolute Auto1.40.3- 0.8 10 3/uLEosinophils Absolute Auto0.10.0-0.7 10 3/uLBasophils Absolute Auto0.0 0.0-0.1 10 3/uLImmature Granulocytes Abs Auto0.070.00-0.03 10 3/uLPerforming Lab:see noteML - [facility] Reason For Referral No Information Medications Medication SIG (Take, Route, Frequency, Duration) Notes Start Date End Date Status Align Prebiotic-Probiotic 5-1.25 MG-GM 1 capsule Orally once daily ActiveOmeprazole 20 MGTAKE 2 CAPSULES BY MOUTH DAILY; Duration: Active ALPRAZolam 0.25 MG1 tablet F41.9 Orally Twice a day08/15/2024ctiveOndansetron 4 MG1 tablet on the tongue and allow to dissolve Orally Q 6 hours PRN; Duration: ctiveAspirin 81 81 MG1 tablet Orally Once a dayActiveBlood Glucose Test StripActivePrimidone 50 MG1 tablet Orally twice a day; Duration: 30 days ActiveLabetalol HCl 300 MGTAKE 1 TABLET BY MOUTH 3 TIMES DAILY; Duration: ActiveLasix 40 MG1 tablet Orally bid; Duration: 90 daysActiveVitamin D 25 MCG (1000 UT)1 tablet Orally Once a day; Duration: 07/30/2025tiveAlbuterol Sulfate (2.5 MG/3ML) 0.083%3 mL as needed Inhalation every 6 hrsActiveXarelto 15 MG1 tablet with food Orally Once a day; Duration: 30 daysActiveLantus SoloStar 100 UNIT/ML10 units Subcutaneous at HS; Duration: 09/14/2025tive Aldactone 25 MG1 tablet Orally Once a day; Duration: 30 3Active Metoclopramide HCl 5 MGTAKE 1 TABLET BY MOUTH AT BEDTIME; Duration: 90Active Cetirizine HCl 10 MG1 tablet Orally Twice a day; Duration: 30 daysActiveNovoLOG FlexPen 100 UNIT/MLInject Subcutaneous AC and HS per sliding scale - 3U 140-200; 6U 201-250; 9U 251-300; 12U 301-350; 15U over 351- MAX DOSE 60units/day; Duration: 45 09/14/2025tivecloNIDine HCl 0.1 MG2 tablets Orally bid; Duration: 90 daysActiveBreo Ellipta 100-25 MCG/ACT1 puff Inhalation Once a day; Duration: 07/31/2025tiveSymbicort 80-4.5 MCG/ACT2 puffs Inhalation Once a dayActiveKlor-Con M20 20 MEQTAKE 1 TABLET BY MOUTH TWICE A DAY; Duration: 90 ActiveTamsulosin HCl 0.4 MGTAKE 1 CAPSULE BY MOUTH DAILY; Duration: 90Active Ezetimibe 10 MGTAKE 1 TABLET BY MOUTH ONCE DAILY; Duration: 90ActiveFerrous Sulfate 325 (65 Fe) MG1 tablet Orally Once a dayActiveFreeStyle Ron 2 Sensor - used to monitor blood sugar dx E11.9; Duration: 14 days5Active Cyanocobalamin 1000 MCG/ML1 mL Injection once monthly; Duration: 30 days 5ActiveDiabetic Shoe -- DailyActiveEscitalopram Oxalate 5 MGTAKE 1 TABLET BY MOUTH EVERY DAY FOR 30 DAYS; Duration: 90ActiveJardiance 25 MG1 tablet Orally Once a day; Duration: 90 daysActivePen [place] 31G X 6 MMpatient injects insulin 5 times daily DX E11.9; Duration: 30 days5ActiveLeqvio 284 MG/1.5MLinject 284 mg Subcutaneous every 6 month5ActiveDicyclomine HCl 10 MGTAKE 2 CAPSULES BY MOUTH 3 TIMES DAILY; Duration: 90ActiveSpiriva Respimat 1.25 MCG/ACT 2 puffs Inhalation Once a day; Duration: 90 days 1 inhaler each Active Immunizations Vaccine Route Administration Date Status Comme nts Flu, Fluad (1541-7700) (18243) 65 yrs+, single-dose syringe IM Intramuscular 08/20/2023 Administered Flu, Fluad (91211) 65 yrs and older, single-dose syringe (7051-5025)IM Znjrcirovedfx44/09/2024AdministeredFlu, Fluad (68913) 65 yrs and older, single- dose syringe (1523-1041)IM Xavvwxukhkqvu76/15/2025Administered Social History Tobacco Use: Social History Observation Description Date Details (start date - stop date) Former Smoker NA - NA Tobacco Use/Smoking Question Answer Notes Patient is a former smoker Alcohol Screen (Audit-C) Question Answer Notes Did you have a drink containing alcohol in the p ast year? No Okbkjn7DngfytqeehbnzgXmlcoldzDIIGW-D (Standard) Question Answer Notes Did you have a drink containing alcohol in the p ast year? 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 (461690540866680)Atherosclerotic heart disease of [place] coronary artery without angina pectoris (I25.10)Active confirmedProblemAortic valve disorder (0993862)Nonrheumatic aortic (valve) stenosis (I35.0)ActiveconfirmedProblemAortic valve disorder (0335630)Other nonrheumatic aortic valve disorders (I35.8)ActiveconfirmedProblemAcute diastolic heart failure (315222728)Acute diastolic (congestive) heart failure (I50.31) ActiveconfirmedProblemAcute combined systolic and diastolic heart failure (916366300605585)Acute combined systolic (congestive) and diastolic (congestive) heart failure (I50.41)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 (187462620587025)Chronic combined systolic (congestive) and diastolic (congestive) heart failure (I50.42)ActiveconfirmedProblemPolyp of colon (59345056)Polyp of colon (K63.5)ActiveconfirmedProblemChronic kidney disease stage 3 (disorder) (797316010)Chronic kidney disease, stage 3 (moderate) (N18.3)ActiveconfirmedProblemBalanitis (48859496)Balanitis (N48.1)Active confirmedProblemBradycardia (65179899)Bradycardia, unspecified (R00.1)Active confirmedProblemShortness of breath (562367312)Shortness of breath (R06.02) ActiveconfirmedProblemBlister of ankle without infection (94628615)Blister (nonthermal), unspecified lower leg, initial encounter (S87.365Q)Activeconfirmed ProblemAtrial fibrillation (59410524)Atrial fibrillation (I48.91)Activeconfirmed ProblemHyperlipidemia (33451892)Hyperlipidemia (E78.5)ActiveconfirmedProblem Aortic regurgitation (90921025)Aortic regurgitation (I35.1)Activeconfirmed ProblemHypertension (39856543)Hypertension (I10)ActiveconfirmedProblemCongestive heart failure (04589002)CHF (congestive heart failure) (I50.9)Activeconfirmed ProblemAsthma (235951846)Asthma (J45.909)ActiveconfirmedProblemCervical radiculopathy (42340398)Cervical radiculopathy (M54.12)ActiveconfirmedProblem Tricuspid regurgitation (801653913)Tricuspid regurgitation (I07.1)Active confirmedProblemAortic valve disorder (3631747)Aortic stenosis (I35.0)Active confirmedProblemAtrial fibrillation (disorder) (91553957)Afib (I48.91)Active confirmedProblemHypertension (24843823)HTN (hypertension) (I10)Activeconfirmed ProblemEdema (65960312)Edema (R60.9)ActiveconfirmedProblemDM - Diabetes mellitus (20376907)DM (diabetes mellitus) (E11.9)ActiveconfirmedProblemDepression (829748586)Depression (F32.9)ActiveconfirmedProblemPeripheral neuropathy (262118341)Peripheral neuropathy (G62.9)ActiveconfirmedProblemVitamin B12 deficiency (578188892)Vitamin B12 deficiency (E53.8)ActiveconfirmedProblemSleep apnea (05519289)Sleep apnea (G47.30)ActiveconfirmedProblemCVA - Cerebrovascular accident (907507321)CVA (cerebral vascular accident) (I63.9)Activeconfirmed ProblemOsteoarthritis of knee (893799968)Osteoarthritis of knee (M17.9)Active confirmedProblemCongestive heart failure (46413840)Congestive heart failure (I50.9)ActiveconfirmedProblemMigraine (92762708)Migraine (G43.909)Active confirmedProblemIrritable bowel syndrome (93798407)IBS (irritable bowel syndrome) (K58.9)ActiveconfirmedProblemPeptic ulcer (46882525)Peptic ulcer (K27.9)ActiveconfirmedProblemGeneralized anxiety disorder (59618754)MERA (generalized anxiety disorder) (F41.1)ActiveconfirmedProblemDiabetes mellitus type 2 (disorder) (35406258)DM2 (diabetes mellitus, type 2) (E11.9)Active confirmedProblemAcute bronchitis (59209098)Acute bronchitis (J20.9)Active confirmedProblemCervical spondylosis with myelopathy (M47.12)Activeconfirmed ProblemPulmonary edema (66762443)Pulmonary edema (J81.1)ActiveconfirmedProblem Diverticulitis (46359552)Diverticulitis (K57.92)ActiveconfirmedProblemDiabetic neuropathy (627275523)Diabetic neuropathy (E11.40)ActiveconfirmedProblemAcute systolic heart failure (668506275)Acute systolic heart failure (I50.21)Active confirmedProblemBenign prostatic hyperplasia (391520133)Benign prostatic hyperplasia (N40.0)ActiveconfirmedProblemDyshidrotic eczema (805178100) Dyshidrotic eczema (L30.1)ActiveconfirmedProblemIron deficiency anemia (23719919)Anemia, iron deficiency (D50.9)ActiveconfirmedProblemVentricular hypertrophy (280343783)Ventricular hypertrophy (I51.7)ActiveconfirmedProblem Hemorrhoid (14987449)Hemorrhoid (K64.9)ActiveconfirmedProblemLabyrinthitis (04212167)Labyrinthitis (H83.09)ActiveconfirmedProblemAltered mental status (125121368)Altered mental status (R41.82)ActiveconfirmedProblemLiver mass (438897466)Liver mass (R16.0)ActiveconfirmedProblemElectrolyte imbalance (223836001)Electrolyte imbalance (E87.8)ActiveconfirmedProblemAltered mental status (878174695)Altered mental state (R41.82)ActiveconfirmedProblemFoot callus (939099310)Foot callus (L84)ActiveconfirmedProblemLeft lower lobe pneumonia (992693166)Left lower lobe pneumonia (J18.9)ActiveconfirmedProblem Dermatochalasis (266185654)Dermatochalasis (H02.839)ActiveconfirmedProblemAcute diastolic heart failure (038894857)Acute diastolic heart failure (I50.31)Active confirmedProblemLentigo maligna (26799833)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 ProblemUrinary tract obstruction (1774047)Urinary obstruction (N13.9)Active confirmedProblemCardiomegaly (3644827)Atrial enlargement, left (I51.7)Active confirmedProblemGeneralized anxiety disorder (94339878)Anxiety neurosis (F41.1) ActiveconfirmedProblemTubulovillous adenoma of colon (9807430858)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 hypertension (99227945) Essential Hypertension (I10)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 ProblemEssential hypertension (33653575)BP (high blood pressure) (I10)Active confirmedProblemHistory of cardioversion (80271584458397)History of cardioversion (Z98.890)ActiveconfirmedProblemDegenerative disorder of macula (646358174)Macular degeneration, 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)ActiveconfirmedProblemDeep vein thrombosis (DVT) of non-extremity vein, unspecified chronicity (I82.90) ActiveconfirmedProblemChronic kidney disease stage 2 (894879224)Chronic kidney disease (CKD), stage 2 (mild) (N18.2)ActiveconfirmedProblemPulmonary hypertension (40490578)Pulmonary hypertension (I27.20)ActiveconfirmedProblemLump in right breast (04628038558330898)Unspecified lump in the right breast, unspecified quadrant (N63.10)ActiveconfirmedProblemAbrasion of skin (30151877) Skin abrasion (T14.8XXA)ActiveconfirmedProblemLiver function tests abnormal (107977692)Liver function test abnormality (R94.5)ActiveconfirmedProblemType II diabetes mellitus without complication (105111013)Diabetes (E11.9)Active confirmedProblemMyocardial infarct (27204474)Myocardial infarct (I21.9)Active confirmedProblemDiabetes mellitus (45233257)Diabetes mellitus (E11.9)Active confirmedProblemResting tremor (55387531)Resting tremor (G25.2)Activeconfirmed ProblemCOVID-19 (450043045)COVID-19 (U07.1)ActiveconfirmedProblemChronic kidney disease stage 3 (disorder) (119895571)Chronic kidney disease, stage 3 unspecified (N18.30)ActiveconfirmedProblemCardiomegaly (6863676)Atrial enlargement, right (I51.7)ActiveconfirmedProblemPericardial effusion - noninflammatory (disorder) (857508953)Other pericardial effusion (noninflammatory) (I31.39)Activeconfirmed Vital Signs Oximetry 90 % 04/06/2025 Blood pressure tobkonjkt99 mm Hg08/29/20251898Welwah68 in08/29/2025lood pressure nixefbuw840 mm Hg08/29/20250762Fuxkbp283.6 lbs1MI25.48 kg/m208/29/2025 Encounters Encounter Location Date Provider Diagnosis [facility] [address] [place] [address] 11/17/2024 Erik Kerry Vitamin B12 deficien cy E53.8 [facility] [address] [place] [address] 12/18/2024 Erik Hoy Vitamin B12 deficien cy E53.8 [facility] [address] [place] [address] 01/15/2025 Erik Hoy Vitamin B12 deficien cy E53.8 [facility] [address] [place] [address] 09/25/2024 Erik Kerry [facility] [place] [address] 12/24/2024[facility] [place] [facility] [place] [address]/03/2025[facility] [place] [facility] [place] [address]/04/2025Doug HoyUrinary frequency R35.0 ; Edema R60.9 ; Essential Hypertension I10 and Diabetes mellitus [facility].9[facility] [place] [facility] [place] [address]/04/2025[facility] [place] [facility] [place] [place] [address] 01/18/2025Doug HoyAtrial fibrillation I48.91[facility] [place] [address]/[facility] [place] [facility] [place] [address]/11/2024Doug HoyAltered mental status R41.82[facility] [place] [address]/11/2024[facility] [place] [address]/02/2025[facility] [place] [facility] [place] [address]/08/2025Doug HoyVitamin B12 deficiency E53.8 ; Hyperlipidemia E78.5 ; Atrial fibrillation I48.91 ; CVA (cerebral vascular accident) I63.9 and Diabetes mellitus E11.9[facility] [place] [facility] [place] [address]/08/2025[facility] [place] [address] 03/14/2025Doug HoyAtrial fibrillation I48.91 ; Hyperlipidemia E78.5 and Pulmonary hypertension I27.20[facility] [place] [facility] [place] [place] [address]Doug HoyVitamin B12 deficiency E53.8[facility] [place] [facility] [place] [address]/12/2024 [facility] [place] [facility] [place] [address]/12/2024[facility] [place] [facility] [place] [address]/23/2025Doug HoyAtrial fibrillation I48.91 and CHF (congestive heart failure) I50.9[facility] [place] [facility] [place] [address]/Doug HoyAtrial fibrillation I48.91[facility] [place] [facility] [place] [address] [facility] [place] [facility] [place] [address]/24/2025Doug HoyCHF (congestive heart failure) I50.9 ; Edema R60.9 ; Chronic kidney disease, stage 3 unspecified N18.30 and Urinary obstruction N13.9[facility] [place] [facility] [place] [address] 05/08/2025[facility] [address] [place] [address]/05/2025[facility] [place] [facility] [place] [address]/05/2025[facility] [address] [place] [facility] [place] [address]Doug HoyPleural effusion C06YldlqphUche[facility] [place] [facility] [place] [address] 05/30/2025[facility] [place] [facility] [place] [address]/02/2025[facility] [place] [facility] [place] [address] [facility] [place] [address]/[facility] [facility] [place] [address]/[facility] [facility] [place] [address]/03/2025 [facility] [facility] [place] [address]/Doug HoyPulmonary edema J81.1[facility] [address] [facility] [place] [address]/[facility] [facility] [place] [address]/Doug Hoy Atrial fibrillation I48.91[facility] [facility] [place] [address]/Doug HoyVitamin B12 deficiency E53.8 ; Encounter for immunization Z23 and UTI (urinary tract infection) N39.0[facility] [facility] [place] [facility] [place] [address]/12/2024 [facility] [facility] [place] [address]/06/2025[facility] [facility] [place] [address]/07/2025[facility] [facility] [place] [address]/Doug HoyUrinary frequency R35.0 [facility] [facility] [place] [address] 09/04/2025Doug HoyConfusion R41.0[facility] [facility] [place] [address]/[facility] [address] [facility] [place] [address]/[facility] [place] [facility] [place] [address]/Doug HoyBSt. [facility] [place] [address]/ [facility] [place] [facility] [place] [address]/Doug HoyUTI (urinary tract infection) N39.0[facility] [place] [facility] [place] [address]/Doug Hoy [facility] [place] [facility] [place] [address] 09/14/2025[facility] [place] [facility] [place] [address]/11/2024Doug HoyCHF (congestive heart failure) I50.9BSt. [facility] [place] [address]/01/2025Doug Hoy [facility] [place] [facility] [place] [address] 09/24/2025Doug HoyAltered mental status R41.82 Assessments Encounter Date Diagnosis (ICD Code) Assessment Notes Treatment Notes Treatment Clinical Notes Section Notes 11/17/2024 Vitamin B12 deficiency (ICD-10 - E53.8) 12/18/2024Vitamin B12 deficiency (ICD-10 - E53.8)01/15/2025Vitamin B12 deficiency (ICD-10 - E53.8)01/18/2025Edema (ICD-10 - R60.9)01/18/2025Urinary frequency (ICD-10 - R35.0)02/22/2025Hyperlipidemia (ICD-10 - E78.5)02/22/2025 Vitamin B12 deficiency (ICD-10 - E53.8)03/26/2025Vitamin B12 deficiency (ICD-10 - E53.8)04/06/2025trial fibrillation (ICD-10 - I48.91)04/06/2025HF (congestive heart failure) (ICD-10 - I50.9)08/29/2025Encounter for immunization (ICD-10 - Z23)08/29/2025Vitamin B12 deficiency (ICD-10 - E53.8)01/18/2025trial fibrillation (ICD-10 - I48.91)02/13/2025ltered mental status (ICD-10 - R41.82) 04/10/2025trial fibrillation (ICD-10 - I48.91)05/08/2025HF (congestive heart failure) (ICD-10 - I50.9)05/21/2025Pleural effusion (ICD-10 - J90)07/30/2025 Pulmonary edema (ICD-10 - J81.1)08/13/2025trial fibrillation (ICD-10 - I48.91) 08/29/2025Urinary frequency (ICD-10 - R35.0)09/04/2025onfusion (ICD-10 - R41.0) 09/11/2025UTI (urinary tract infection) (ICD-10 - N39.0)09/15/2025HF (congestive heart failure) (ICD-10 - I50.9)09/24/2025ltered mental status (ICD- 10 - R41.82)03/14/2025trial fibrillation (ICD-10 - I48.91)03/14/2025 Hyperlipidemia (ICD-10 - E78.5)03/14/2025Pulmonary hypertension (ICD-10 - I27.20)05/08/2025Edema (ICD-10 - R60.9)08/29/2025UTI (urinary tract infection) (ICD-10 - N39.0)02/22/2025trial fibrillation (ICD-10 - I48.91)01/18/2025 Essential Hypertension (ICD-10 - I10)01/18/2025Diabetes mellitus (ICD-10 - E11.9)02/22/2025VA (cerebral vascular accident) (ICD-10 - I63.9)05/08/2025 Chronic kidney disease, stage 3 unspecified (ICD-10 - N18.30)02/22/2025Diabetes mellitus (ICD-10 - E11.9)restarting qpttuffvl03/24/2025Urinary obstruction (ICD- 10 - N13.9) Plan Of Treatment Pending Test [...] 01/18/2025 CULTURE SPUTUM 05/08/2025 CULTURE URINE 08/29/2025 PROF CHEM 8 (BAS METB) 09/15/2025 RESPIRATORY PANEL PLUS 09/09/2023 SPUTUM GRAM STAIN 01/18/2025 URINE MICROSCOPIC ONLY 08/29/2025 CT CHEST WO CON 05/21/2025 CT HEAD WO CON 09/24/2025 THYROID PANEL (T4/TSH/FREE T3) Free PSA 03/13/2024 CMP (COMP MET LYN) w/eGFR CKD-EPI 2024 Next Appt Details Provider Name:Erik Sung, 10:00:00 AM, [address] [place], [address], Insurance Providers Payer Name Payer Address Payer Phone Subscriber Number Group Number Insured Name Patient Relationship to Insured Coverage Start Date Coverage End Date [place] [address] [place] [address] [id number] Dafne Heredia - patient is the [id number] 2004[facility] [id number] [place] [id number] C Raifsnider, RonaldSelf - patient is the [id number] 2014 Medications Administered Medication Instructions Date of Administration Dosage Notes Ceftriaxone 1 gram g1 odAakofgpnamsnop85/21/20231 uPEyjmwdecsuqggp85/19/20231 mL Jondlpqqohrpis44/19/20231 lDHgvoiaugwysdem91/23/20231 jOKkseoikfytrtdg67/21/2023 1 eYNhfitxlqjcygkj66/25/20241 fCLnzekuaqqmksiz09/23/20241 mLCyanocobalamin tTDkwhbviiquscjn49/19/20241 kEHeitkzimrezycc33/20/20241 mL Ocqdwutexddxcw13/20/20241 jRTockyofdtgzqru75/19/20241 yBIvnepvovebyvdw05/23/2024 1 xPHsdvcoyvxypcrb76/23/20241 ytRkitzkufltqczb30/03/20251 mLCyanocobalamin wLKqmipxdrdhesed90/03/20251 dLTlwlfwtabyqydu46/10/20251 mL Wgmhfgrwunwycv18/12/20251 oUQjiaupyjimssed27/15/20251 mL Medical (General) History Medical History History [...]
--- OUTSIDE RECORDS SUMMARY | 2025-09-25 15:04 | XMS_ITS | Clinical Summary ---
Author Organization [facility] tem Address [id number] [place] [address] Care Team Providers Care Driver Recruiter Name Role Phone Pj Sung MD Primary Care Provider [phone] Social History Tobacco UseTypesPacks/DayYears UsedDateSmoking Tobacco: Never AssessedSex and Gender InformationValueDate RecordedSex Assigned at BirthNot on fileLegal Sex Male02/14/2025 11:32 AM EDTGender IdentityNot on fileSexual OrientationNot on file Plan of Treatment Health MaintenanceDue DateLast DoneCommentsDepression Pjcxukymy28/25/1951Tobacco Lvnzrncsb52/25/1951Fall Risk Ttwdtebmf90/25/2004COVID-19 Vaccine ( season)/12/2022, 10/21/2022, 08/26/2021, Additional history exists Influenza Ijkmfgz71/04/2023, 08/18/2022, 09/11/2021, Additional history existsDTaP,Tdap and Td Vaccines (2 - Td or Tdap)RSV ( or age 60+ yrs)Iodcacyox55/07/2023Zoster (Shingles) VaccineCompleted 04/05/2025, 11/06/2020, 10/30/2019, Additional history exists Medical Devices Not on file Insurance Care Teams Team MemberRelationshipSpecialtyStart DateEnd Pj Sung MD [address] [facility], [place] [address] [facility] - [facility]/25
--- OUTSIDE RECORDS SUMMARY | 2025-09-25 15:04 | XMS_ITS | Encounter Summary ---
Author Organization [facility] Address [address] [place] [address] Care Team Providers Care [employer] Parking Attendant Name Role Phone Pj Sung MD Primary Care Provider [phone] Pj Sung MD Unavailable Encounter Details DateTypeDepartmentCare Team (Latest Contact Info)Zxfldkgfvxv97/31/2025Telephone [facility] [address] [place] [address] Caro Calixto MA Social History Tobacco UseTypesPacks/DayYears UsedDateSmoking Tobacco: FormerCigarettes Smokeless Tobacco: NeverAlcohol UseStandard Drinks/WeekCommentsNot Currently0 (1 standard drink = 0.6 oz pure alcohol)[facility] UtilitiesAnswerDate RecordedIn the past 12 [...] heating?Not hard at all05/10/2025PHQ-2AnswerDate RecordedPatient Health Questionnaire-2 [id number] Safety & EnvironmentAnswerDate RecordedFear of Current or [...] homeless or living in a custodial (including now)? No05/10/2025Hunger Vital SignAnswerDate RecordedWithin the past 12 months, you worried that your food would run out before you got the money to buymore.Never true05/10/2025Ran Out of Food in the Last YearNot on file05/10/2025Sex and Gender InformationValueDate RecordedSex Assigned at UucrzFcfh35/27/2023 8:02 PM EDTLegal HdfMcxh4205/13/2022 10:17 PM EDTGender IfbdhhooLmwx86/27/2023 8:02 PM EDT Sexual OrientationHeterosexual or Atjakqpb07/27/2023 8:02 PM EDTdocumented as of this encounter Plan of Treatment DateTypeDepartmentCare Team (Latest Contact Info)Fpclsojdotm16/19/2025 10:00 AM ESTOffice Visit [facility] [address] [place] [id number] Mike Cisneros MD [address] [facility] [place] [id number] 01/30/2026 3:00 PM [facility]TFSt[facility] [address] [place] [address] Ruthie Linda MD [address] [facility] [place] [address] documented as of this encounter Visit Diagnoses Not on filedocumented in this encounter Care Teams Team MemberRelationshipSpecialtyStart DateEnd Date Pj Sung MD [address] [facility] [address] PCP - GeneralFamily Medicine05/10/25 Pj Sung MD [address] [place] [address] 05/10/25documented as of this encounter
--- OUTSIDE RECORDS SUMMARY | 2025-09-25 15:05 | XMS_ITS | CCD ---
Author Organization [facility] CliniSyut Care Team Providers Care Health Promotion Coordinator Name Role Phone PHYSICIAN, DEFAULT Admitting Unavailable PHYSICIAN, DEFAULT Attending Unavailable VAN YOUSSEF Primary Care Unavailable Van Youssef Primary Care Physician MIAKEL ., DR ARAUJO Primary Care Unavailable HOY ., DR ARAUJO Consulting Unavailable HOY ., DR ARAUJO Attending Unavailable HOY ., DR ARAUJO Admitting Unavailable ZIEBER, DR CLOVER Zimmer Consulting Unavailable NORTHWAY, DR CRAMER Consulting Unavailable HOY ., DR ARAUJO Primary Care Unavailable NORTHWAY, DR CRAMER Attending Unavailable NORTHWAY, DR CRAMER Admitting Unavailable NORTHWAY, DR CRAMER Consulting Unavailable HOY ., DR ARAUJO Primary Care Unavailable NORTHWAY, DR CRAMER Attending Unavailable NORTHWAY, DR CRAMER Admitting Unavailable HOY ., DR ARAUJO Consulting Unavailable HOY ., DR ARAUJO Primary Care Unavailable HOY ., DR ARAUJO Attending Unavailable HOY ., DR ARAUJO Admitting Unavailable NORTHWAY, DR CRAMER Consulting Unavailable HOY ., DR ARAUJO Primary Care Unavailable NORTHWAY, DR CRAMER Attending Unavailable NORTHWAY, DR CRAMER Admitting Unavailable HOY ., DR [...] Consulting Unavailable PREETI ROBERTS Consulting Unavailable Van oYussef MD Primary Care Provider [phone] Van Youssef MD Primary Care Provider [phone] Van Youssef MD Primary Care Provider [phone] DO Bunny VERDUGOobir R Admitting UnavailDO Bunny Smithobir R Attending UnavailClover Villatoro Consulting Unavailable MD Clover Walker Consulting Unavailable Silver[place], Clover Consulting Unavailable [place], Clover Consulting Unavailable [place] Clover Consulting Unavailable [place] Clover Consulting Unavailable [place], Clover Consulting Unavailable [place], Clover Consulting Unavailable [place], Clover Consulting Unavailable [facility] Wound, XXXX Consulting Unavailable [facility] Cardio, XXXX Consulting Unavailable Hanna Mahmoud Consulting Unavailable MD Rebeca Ferreira Consulting Unavailable Othman Mahmoud Consulting Unavailable KARTIK, Ronobir R Admitting Unavailable Bunny VERDUGOobir R Attending Unavailable [facility] Wound, XXXX Consulting Unavailable HOY, VAN M [...] Referring Unavailable NKANSAH-AMANKRA, MARQUIS Attending Unavail able Meija SINGH Attending Unavailable LU OLMEDO Attending Unavailable NKANSAH-AMANKRA, MARQUIS Referring Unavail able NKANSAH-AMANKRA, MARQUIS Attending Unavail able NKANSAH-AMANKRA, MARQUIS Attending Unavail able NKANSAH-AMANKRA, MARQUIS Referring Unavail able NKANSAH-AMANKRA, MARQUIS Admitting Unavail able NKANSAH-AMANKRA, MARQUIS Attending Unavail able NKANSAH-AMANKRA, MARQUIS Referring Unavail able NKANSAH-AMANKRA, MARQUIS Admitting Unavail able Rivas Griggs Attending Unavailable Van Youssef MD Attending Provider [phone] CLARIBEL CISNEROS Attending Unavailable RUY SLULIVAN Attending Unavailable CLARIBEL CISNEROS Attending Unavailable CLARIBEL CISNEROS Referring Unavailable RUY SULLIVAN Attending Unavailable RUTHIE LINDA Attending Unavailable JEFF REYES Attending Unavailable CLARIBEL CISNEROS Attending Unavailable ROBERUKACLARIBEL ARCHER Attending Unavailable Van Youssef Attending Unavailable Van Youssef Admitting Unavailable Van Youssef MD Primary Care Provider BLAISE CHICAS Attending Unavailable BARRIE MONTOYA Attending Unavailable BLAISE CHICAS Attending Unavailable MONY HERRON Attending Unavailable BLAISE CHICAS Attending Unavailable BARRIE MONTOYA Attending Unavailable BARRIE MONTOYA Attending Unavailable RODNEY JOY Attending Unavailable BLAISE CHICAS Attending Unavailable BLAISE CHICAS Attending Unavailable Allergies Allergy ClassificationReported Allergen(s)Allergy TypeDate of OnsetReaction(s) Facility (20 sources)Aminolevulinic Acid; Translations: [aminolevulinic acid]Drug Allergy 39-72-1101[facility] ([facility] source)NITRO PATCH; Translations: [NITRO PATCH]Propensity to adverse reactions (disorder)19-46[facility]9449[facility] (20 sources)Contrast media; Translations: [Contrast Dye]Drug allergyUnknown (qualifier value)[facility] (20 sources)Hmg-Coa Reductase Inhibitors (Statins); Translations: [statins] Allergy to -91-3030MpjhqwgZqxfge[facility] (20 sources)Nitroglycerin; Translations: [nitroglycerin]Drug Adgoino11-50-5140 Unknown (qualifier value)[facility] (2 sources)black walnut pollen extract; Translations: [VHKNOJM-YPY-DZE REDUCTASE INHIBITORS]Drug Vcfomyy47-14-4707Pzd[facility] Repository (1 source)Iodine (And Iodine Containting Drugs)Drug allergy (disorder)05-28-2016 [facility] Repository (20 sources)NitroglycerinAllergy to bxnpaxnto55-21-0718QDR[facility] (20 sources)Iodinated Contrast Media; Translations: [IODINATED CONTRAST MEDIA] Drug Bedmdns75-18-7999[facility] (14 sources)Simvastatin; Translations: [simvastatin]Drug Qyqpzkv49-86-6635 elevated liver enzymesExecutive Urology of Ad[facility] (7 sources)Aminolevulinic Acid; Translations: [aminolevulinic acid]Drug Allergy 25-40-8610UfptrjSelect [facility] (7 sources)Nitroglycerin; Translations: [Nitroglycerin Patch]Drug AllergySelect [facility] (2 sources)Aminolevulinic Acid; Translations: [AMINOLEVULINIC ACID HCL]Drug Mpqmota78-03-0887QftnkgpuggTriHealth [facility] Rep[facility] Medications Current Medications MedicationDrug Class(es)DatesSig (Normalized)Sig (Original)acetaminophen 500 mg oral tablet (17 sources)take 2 tablets by mouth every six hours as needed for pain acetaminophen (Tylenol) 500 MG tablet Take 1,000 mg by mouth every 6 (six) hours if needed for mildpain Activeacetaminophen 325 mg / HYDROcodone bitartrate 5 mg oral tablet (4 sources)Opioid AgonistStart: 14-05-2291lhys 1 tablet by mouth every six hours as needed for pain, then take 2 tablets by mouth every six hours as needed for painNorco 325 mg-5 mg oral tablet 1 tab(s), Oral, q6hr, 2 tab(s), Refill(s) 0, Take q6hrs as needed forpain., [facility]/pharmacy #[id number], 185, cm, 10/02/24 11:15:00 EST, Height/Length Dosing, 91, kg, 10/02/24 11:15:00 EST, Weight Dosing Start Date: 10/16/24 Status: Orderedacyclovir 400 mg oral tablet (20 sources)Herpesvirus Nucleoside Analog DNA Polymerase Inhibitor, Herpes Simplex Virus Nucleoside Analog DNA Polymerase Inhibitor, Herpes Zoster Virus Nucleoside Analog DNA Polymerase InhibitorStart: 08-93-8645edxy 400 mg by mouth twice dailyacyclovir 400 mg, Oral, BID, Refills(s) 0, Infection or prophylaxis for antibiotics Start Date: 01/09/19 Status: Orderedalogliptin 25 mg oral tablet (20 sources)Start: 91-49-1492jwyf 1 tablet by mouth in the morningalogliptin (Nesina) 25 MG tablet Take 1 tablet by mouth in the morning. 11/12/2022 Active ALPRAZolam 0.25 mg oral tablet (20 sources)BenzodiazepineStart: 49-34-9374dqng 1 tablet by mouth every eight hours [...] mg oral tablet (20 sources)Factor Xa InhibitorStart: 27-30-3827pbxe 2.5 mg by mouth twice daily Eliquis 2.5 mg, Oral, BID, Refills(s) 0, Blood Thinner Start Date: 01/09/19 Status: OrderedStart: 29-93-1693njxy 5 mg by mouth twice dailyEliquis 5 mg, Oral, BID, Refills(s) 0, Blood Thinner Start Date: 01/09/19 Status: Ordered End: 99-77-5442plwfagzb (Eliquis) 2.5 MG tablet every 12 (twelve) hours. 04/10/2025 DiscontinuedAspirin (20 sources)Platelet Aggregation Inhibitor, Nonsteroidal Anti-inflammatory Drug Start: 49-71-3945Blmxhzg Low Dose 81 mg, Daily Start Date: 06/11/25 Status: Ordered Repeat number: 1Start: 74-49-1344fewz 81 mg by mouth once dailyaspirin 81 mg, Oral, Daily, Refills(s) 0, Prophylaxis Start Date: 01/09/19 Status: Ordered Repeat number: 1take 1 tablet by mouth in the morningaspirin 81 MG EC tablet Take 1 tablet by mouth in the morning. ActiveB Complex with Vitamin C Gummy oral tablet, chewable (2 sources)Start: 72-87-0094alvh 1 tablet by mouth once dailyB Complex with Vitamin C Gummy oral tablet, chewable 1 tab(s), Chewed, Daily, Refill(s) 0 Start Date: 04/14/25 Status: Ordered Repeat number: 1B-Complex tablet (20 sources)B-Complex tablet as directed Orally Activebacitracin zinc 0.5 unt/mg topical ointment (17 sources)bacitracin 500 UNIT/GM ointment Apply 1 application topically in the morning and 1 application before bedtime. Activebacitracin top 500 units/g Oint PACKET (2 sources)Start: 72-52-3065hsmvukhvme top 500 units/g Oint PACKET Topical, BID, Refill(s) 0 Start Date: 04/18/25 Status: OrderedRepeat number: 1Symbicort (20 sources)Corticosteroid, beta2-Adrenergic AgonistStart: 50-27-5688Yhrzvfofb 80-4.5 mcg/actuation, Inhalation, BID, Refill(s) 0, COPD Start Date: 01/09/19 Status: Ordered Repeat number: 1Start: 84-47-9357Zcdqvebzc 80-4.5 mcg/actuation, Inhalation, BID, Refill(s) 0, COPD Start Date: 01/09/19 Status: Orderedtake 2 puff(s) by inhalation in the morningbudesonide-formoterol (Symbicort) 80-4.5 MCG/ACT inhaler Inhale 2 puffs in the morning and 2 puffs before bedtime. Rinse mouth with water after use to reduce aftertaste and incidence of candidiasis. Do not swallow. Active End: 01-49-9324flyeeuptwr-formoterol (Symbicort) 80-4.5 MCG/ACT inhaler 1 (one) time each day at the same time. 08/01/2024 Discontinuedcetirizine hydrochloride 10 mg oral tablet (19 sources)Histamine-1 Receptor AntagonistStart: 98-78-3440eruc 1 tablet by mouth once dailycetirizine 10 [...] 500 mg oral tablet (5 sources)Quinolone AntimicrobialStart: 61-69-1977qszl 1 tablet by mouth twice dailyCipro 500 mg Tab 500 mg = 1 tab(s), Oral, BID, Start 1 day prior to procedure., # 6 tab(s), Refills(s) 0, Pharmacy: [facility]/pharmacy #[id number], 185, cm, 10/02/24 11:15:00 EST, Height/Length Dosing, 91, kg, 10/02/24 11:15:00 EST, Weight Dosing Start Date: 10/16/24 Status: OrderedStart: 99-22-4764davy 1 tablet by mouth twice dailyCipro 500 mg Tab 500 mg = 1 tab(s), Oral, BID, Start 3 days prior to procedure., # 6 tab(s), Refills(s) 0, Pharmacy: [facility]/pharmacy #[id number], 185, cm, 08/08/24 10:28:00 EDT, Height/Length Dosing, 91, kg, 08/08/24 10:28:00 EDT, Weight Dosing Start Date: 08/11/24 Status: OrderedDaily Fiber Sugar-Free (1 source)Start: 59-78-7407dygp 3 capsules by mouth once dailyDaily Fiber Sugar- Free 3 capsules, Oral, Daily, Refill(s) 0 Start Date: 04/14/25 Status: Ordered Repeat number: 1dapagliflozin 5 mg oral tablet (1 source)Sodium-Glucose Cotransporter 2 InhibitorStart: 50-29-2853anrq 5 mg by mouth once dailyFarxiga 5 mg, Oral, Daily Start Date: 06/11/25 Status: Ordered Repeat number: 1diazePAM 10 mg oral tablet (4 sources)BenzodiazepineStart: 94-91-4085Qasrqn 10 mg Tab 10 mg = 1 tab(s), Oral, Once, take one hour prior to the procedure., # 1 tab(s), Refills(s) 0, Pharmacy: [facility]/pharmacy #[id number], 185, cm, 10/02/24 11:15:00 EST, Height/Length Dosing, 91,kg, 10/02/24 11:15:00 EST, Weight Dosing Start Date: 10/16/24 Status: Ordereddicyclomine hydrochloride 10 mg oral tablet (20 sources)AnticholinergicStart: 65-65-2752hnzv 10 mg by mouth twice daily dicyclomine 10 mg, Oral, BID, Refills(s) 0, Spasm Start Date: 01/09/19 Status: Ordered Repeat number: 1take 1 capsule by mouth once dailydicyclomine (Bentyl) 10 MG capsule Take 1 capsule every day by oral route. ActiveDULoxetine 20 mg delayed release oral capsule (20 sources)Serotonin and Norepinephrine Reuptake InhibitorStart: 84-35-9001zzkc 1 capsule by mouth at bedtimeDULoxetine (Cymbalta) [address] capsule Indications: Neurogenic pain TAKE 1 CAPSULE BY MOUTH AT BEDTIME 90 capsule 1 09/18/2025 ActiveStart: 08-01-2024 End: 78-77-9223ibtf 1 capsule by mouth at bedtimeDULoxetine (Cymbalta) [address] capsule Indications: Neurogenic pain Take 1 capsule (20 mg) by mouthat bedtime 90 capsule 1 08/01/2024 Activeempagliflozin 25 mg oral tablet (20 sources)Sodium-Glucose Cotransporter 2 InhibitorStart: 99-70-8127vfcm 1 tablet by mouth in the morningempagliflozin (Jardiance) 25 MG Take 1 tablet by mouth in the morning. 11/12/2022 ActiveStart: 21-38-4520Mhnfgezfl 10 mg oral tablet 25 mg, Oral, qAM, Refills(s) 0, Blood glucose Start Date: 03/31/22 Status: Ordered Repeat number: 1Start: 59-66-5576siho 1 tablet by mouth once daily in the morningJardiance 10 mg oral tablet 10 mg = 1 tab(s), Oral, qAM, Refills(s) 0, Blood glucose Start Date: 03/31/22 Status: Orderedezetimibe 10 mg oral tablet (20 sources)Dietary Cholesterol Absorption InhibitorStart: 25-87-6712koze 10 mg by mouth once dailyZetia 10 mg, Oral, Daily, Refills(s) 0, High cholesterol Start Date: 01/09/19 Status: Ordered Repeatnumber: 1ferrous sulfate (20 sources)Start: 10-73-9784vqlxrvb sulfate 325 mg, BID, Refills(s) 0, Prophylaxis Start Date: 01/09/19 Status: Orderedtake 1 tablet by mouth in the morningferrous sulfate 325 (65 Fe) MG tablet Take 1 tablet by mouth in the morning and 1 tablet before bedtime. Coeyxg02 actuat fluticasone propionate 0.113 mg/actuat / salmeterol xinafoate 0.014 mg/actuat dry powder inhaler (17 sources)Corticosteroid, beta2-Adrenergic Agonisttake 1 puff(s) by mouth in the morningfluticasone-salmeterol (AirDuo RespiClick) 113-14 MCG/ACT inhaler Inhale 1 puff in the morning and 1 puff before bedtime. Rinse mouth with water after use to reduce aftertaste and incidence of candidiasis. Do not swallow. Activefurosemide 20 mg oral tablet (20 sources)Loop DiureticStart: 52-86-3884hikl 1 mg by mouth once dailyLasix 80 mg Tab mg tab(s), Oral, Daily, Refills(s) 0 Start Date: 08/08/24 Status: Ordered Start: 74-54-8676Rduxj 20 MG tablet 1 (one) time each day at the same time. 07/07/2023 ActiveStart: 35-50-3349Vsxka 40 mg, Refills(s) 0, diuretic/water pill Start Date: 01/09/19 Status: Orderedgabapentin 600 mg oral tablet (17 sources)Anti-epileptic AgentStart: 85-88-4908pxkjgfrivi 600 mg, Oral, qNOON, Refills(s) 0, Neuropathy Start Date: 01/09/19 Status: Orderedglimepiride 8 mg oral tablet (20 sources)SulfonylureaStart: 94-36-0489mewv 8 mg by mouth once daily glimepiride 8 mg, Oral, Daily, Refills(s) 0, High blood sugar Start Date: 01/09/19 Status: Ordered Repeat number: 1Start: 77-78-6310sscv 2 mg by mouth once dailyglimepiride 2 mg, Oral, Daily, Refills(s) 0, High blood sugar Start Date: 01/09/19 Status: Orderedtake 1 tablet by mouth in the morningglimepiride (Amaryl) 4 MG tablet Take 1 tablet by mouth in the morning and 1 tablet before bedtime. ActivehydrALAZINE hydrochloride 100 mg oral tablet (20 sources)Arteriolar VasodilatorStart: 01-09-2019 End: 37-29-7046nljw 100 mg by mouth twice dailyhydrALAZINE 100 mg, Oral, BID, Refills(s) 0, High blood pressure Start Date: 01/09/19 Status: Ordered3 ml insulin lispro 50 unt/ml / insulin lispro protamine, human 50 unt/ml pen injector (17 sources)Insulin Analoginsulin lispro protamine-insulin lispro (HumaLOG MIX 50/50 KWIKPEN) (50-50) 100 UNIT/ML injection Inject under the skin in the morning and in the evening. Inject with meals. Activelabetalol hydrochloride 300 mg oral tablet (20 sources)beta-Adrenergic BlockerStart: 04-17-2025 End: 52-06-0986stuqurjmf 100 mg Tab 300 mg = 3 tab(s), Tab, Oral, Start date 04/17/25 10:00:00 PM EDT, 04/16/25 7:36:00 EDT Start Date: 04/17/25 Stop Date: 04/17/25 Status: Completed Repeat number: 1Start: 04-16-2025 End: 26-05-9043wopzisxht 100 mg Tab 300 mg = 3 tab(s), Tab, Oral, Start date 04/16/25 10:00:00 PM EDT, 04/16/25 7:36:00 EDT Start Date: 04/16/25 Stop Date: 04/16/25 Status: Completed Repeat number: 1Start: 58-04-1189uyvkpvwqb 300 mg Tab 300 mg = 1 tab(s), Refills(s) 0 Start Date: 06/11/25 Status: Ordered Repeat numb er: 1Start: 27-40-5308ajha 150 mg by mouth once dailylabetalol 150 mg, Oral, Daily, Refills(s) 0, High blood pressure Start Date: 01/09/19 Status: Ordered Start: 49-80-3026kuah 300 mg by mouth once dailylabetalol 300 mg, Oral, Daily, Refills(s) 0, High blood pressure Start Date: 01/09/19 Status: Orderedtake 0.5 tablet by mouth twice dailylabetalol (Normodyne) 300 MG tablet TAKE 1/2 TABLET BY MOUTH 2 TIMES DAILY ActivelevoFLOXacin 750 mg oral tablet (20 sources)Quinolone AntimicrobialStart: 22-82-4491nsfeVHUSukib (Levaquin) 750 MG tablet 1 (one) time each day at the same time. 07/23/2023 Activelinagliptin 5 mg oral tablet (18 sources)Dipeptidyl Peptidase 4 InhibitorStart: 23-59-2801fqwq 5 mg by mouth once dailyTradjenta 5 mg, Oral, Daily Start Date: 06/11/25 Status: Ordered Repeat number: 1Loratadine (18 sources)Start: 20-05-3355rooignmklh 10 mg, Daily Start Date: 06/11/25 Status: Ordered Repeat number: 1take 1 tablet by mouth once dailyloratadine (Claritin Reditabs) 10 MG disintegrating tablet Take 10 mg by mouth Daily Activemagnesium oxide 500 mg oral tablet (20 sources)Start: 40-43-0788xqam 500 mg by mouth three times dailymagnesium oxide 500 mg, Oral, TID, Refills(s) 0, Prophylaxis Start Date: 08/28/20 Status: Ordered Repeat number: 1Start: 53-38-9591bznl 500 mg by mouth once daily magnesium oxide 500 mg, Oral, Daily, Refills(s) 0, Prophylaxis Start Date: 08/28/20 Status: OrderedStart: 17-32-5586rxizasaww oxide Oral, Refills(s) 0 Start Date: 08/28/20 Status: OrderedmetFORMIN hydrochloride 500 mg oral tablet (20 sources)BiguanideStart: 39-71-1596zxrp 1 tablet by mouth three times daily metformin 500 mg Tab 500 mg = 1 tab(s), Oral, TID, Refills(s) 0 Start Date: 08/08/24 Status: OrderedRepeat number: 1Start: 08-28-2020 End: 29-61-2593yhxe 1 mg by mouth once dailymetformin 500 mg ER Tab mg tab(s), Oral, Daily, Refills(s) 0 Start Date: 08/28/20 Status: Orderedmetoclopramide 5 mg oral tablet (20 sources)Dopamine-2 Receptor AntagonistStart: 95-98-2329pdpm 5 mg by mouth twice dailymetoclopramide 5 mg, Oral, BID, Refills(s) 0, Control of stomach acid Start Date: 01/09/19 Status: Orderedmetoclopramide (Reglan) 5 MG tablet every 12 (twelve) hours Activemupirocin 20 mg/ml topical cream (6 sources)RNA Synthetase Inhibitor AntibacterialStart: 83-52-7086quwxrejwr Top 2% Crm Refill(s) 0 Start Date: 08/08/24 Status: Lmvvemq60 hr NIFEdipine 90 mg extended release oral tablet (20 sources)Dihydropyridine Calcium Channel BlockerStart: 09-16-5688iaew 90 mg by mouth twice dailyNIFEdipine 90 mg, Oral, BID, Refills(s) 0, High blood pressure Start Date: 01/09/19 Status: OrderedStart: 15-15-5748cxte 90 mg by mouth once dailyNIFEdipine 90 mg, Oral, Daily, Refills(s) 0, High blood pressure Start Date: 01/09/19 Status: Ordered End: 12-55-5922dhic 1 tablet by mouth twice dailyNIFEdipine XL (Procardia XL) 60 MG 24 hr tablet Take 1 tablet twice a day by oral route for 90 days. 08/01/2024 DiscontinuedNuLYTELY Lemus oral powder for reconstitution (1 source)Start: 08-80-4074cwhc 1 dose by mouth once dailyNuLYTELY Lemus oral powder for reconstitution See Instructions, 1 EA, Refill(s) 0, 240 mL Oral Daily Prior to colonoscopy Per physician's instructions, [facility]/pharmacy #[id number], 185, cm, 03/31/22 9:58:00 EDT, Height/Length Dosing, 101, kg, 03/31/22 9:58:00 EDT, Weight Dosing Start Date: 03/31/22 Status: Orderedomeprazole 20 mg delayed release oral capsule (20 sources)Proton Pump InhibitorStart: 20-48-6698utwrymkuob 20 mg Cap-DR 20 mg = 1 cap(s) Start Date: 06/11/25 Status: Ordered Repeat number: 1Start: 01-09-2019 omeprazole 20 mg, Oral, Daily, Refills(s) 0, Control of stomach acid Start Date: 01/09/19 Status: Ordered Repeat number: 1Start: 23-47-0826kcpn 20 mg by mouth twice dailyomeprazole 20 mg, Oral, BID, Refills(s) 0, Control of stomach acid Start Date: 01/09/19 Status: Orderedtake 2 capsules by mouth once dailyomeprazole (PriLOSEC) [address] capsule Take 2 capsules every day by oral route for 90 days. Activephenazopyridine hydrochloride 100 mg oral tablet (1 source)Start: 10-16-2024 End: 83-90-4016Eiaabrjd 100 mg Tab 100 mg = 1 tab(s), Oral, TID, Take TID as needed., X 2 week(s), # 42 tab(s), Refills(s) 0, Pharmacy: [facility]/pharmacy #[id number], 185, cm, 10/02/24 11:15:00 [...] 08/28/20 Status:Ordered Repeat number: 1Start: 08-28-2020 End: 45-34-5892puui 1 tablet by mouth once dailypioglitazone 30 mg Tab 30 mg = 1 tab(s), Oral, Daily, Refills(s) 0, Blood glucose Start Date: 08/28/20 Status: Orderedtake 1 tablet by mouth once dailypioglitazone (Actos) 45 MG tablet TAKE 1 TABLET BY MOUTH EVERY DAY for 90 Activepolyethylene glycol 3350 44164 mg powder for oral solution (17 sources)Osmotic Laxativetake 17 g by mouth every twenty-four hours as needed polyethylene glycol, PEG, 3350 (Miralax) 17 g packet Take 17 g by mouth Daily as needed ActiveKlor-Con (20 sources)Start: 24-90-0997Qzpa-Con 20 mEq, Oral, Daily, Refills(s) 0, Prophylaxis Start Date: 01/09/19 Status: Ordered Repeat number: 1Start: 95-78-4076Xffx-Con 20 mEq, Oral, Daily, Refills(s) 0, Prophylaxis Start Date: 01/09/19 Status: Orderedtake 1 tablet by mouth in the morningKLOR-CON 20 MEQ ER tablet Take 1 tablet by mouth in the morning and 1 tablet before bedtime. Active take 20 mEq by mouth once dailypotassium chloride (Klor-Con) 20 MEQ packet Take 20 mEq by mouth Daily ActivePred Mild (20 sources)CorticosteroidStart: 91-96-7536odvz 1 drop(s) into the eye(s) twice dailyPred Mild 1 drop(s), Eye-Both, BID, Refill(s) 0, Inflammation Start Date: 01/09/19 Status: Ordered Repeat number: 1Start: 11-59-0041lrmw 1 drop(s) into the eye(s) three times dailyPred Mild 1 drop(s), Eye-Both, TID, Refill(s) 0, Inflammation Start Date: 01/09/19 Status: OrderedStart: 95-31-6776dahc 1 drop(s) into the eye(s) twice dailyPred Mild 1 drop(s), Eye-Both, BID, Refill(s) 0, Inflammation Start Date: 01/09/19 Status: Orderedtake 1 drop(s) into the eye(s) three times dailyprednisoLONE acetate (Pred-Forte) 1 % ophthalmic suspension INSTILL 1 DROP INTO RIGHT EYE 3 TIMES ADAY DIRECTED Activeprimidone 250 mg oral tablet (20 sources)Anti-epileptic AgentStart: 08-01-2024 End: 57-30-0535evfqhvwjt (Mysoline) 250 MG tablet Indications: Benign essential tremor 1/2 tab BID 90 tablet 1 04/10/2025 ActiveStart: 01-11-2024 End: 30-81-0713mnmzznemq (Mysoline) 50 MG tablet Indications: Benign essential tremor 1 tab TID 270 tablet 3 01/11/2024 08/01/2024 Discontinued (Reorder)Start: 04-27-1815qljc 2 tablets by mouth twice dailyprimidone 50 [...] mg oral tablet (20 sources)Factor Xa InhibitorStart: 52-96-7765qkan 1 tablet by mouth once daily in the eveningXarelto 15 mg oral tablet 15 mg = 1 tab(s), Oral, qPM, Refills(s) 0 Start Date: 04/14/25 Status: Ordered Repeat number: 1SITagliptin 100 mg oral tablet (19 sources)Dipeptidyl Peptidase 4 InhibitorStart: 69-35-1685zzry 100 mg by mouth once dailyJanuvia 100 mg, Oral, Daily, Refill(s) 0, High blood sugar Start Date: 01/09/19 Status: Ordered Repeat number: 1Spiriva Respimat 1.25 mcg/inh inhalation aerosol (1 source)Start: 67-08-8351Dizwdtq Respimat 1.25 mcg/inh inhalation aerosol 2 puff(s), Inhalation, Daily, Refill(s) 0, COPD Start Date: 01/09/19 Status: Orderedspironolactone 25 mg oral tablet (19 sources)Aldosterone AntagonistStart: 97-54-7625xfbp 1 tablet by mouth once dailyspironolactone 25 mg Tab 25 mg = 1 tab(s), Oral, Daily, Refills(s) 0 Start Date: 04/14/25 Status: Ordered Repeat number: 1tamsulosin hydrochloride 0.4 mg oral capsule (20 sources)alpha-Adrenergic BlockerStart: 01-09-2019 End: 66-86-4807sqgp 0.4 mg by mouth once dailyFlomax 0.4 mg, Oral, Daily, Refills(s) 0, Urinary discomfort Start Date: 01/09/19 Status: Ordered Repeat number: 160 actuat tiotropium 0.57815 mg/actuat inhalation spray (20 sources)AnticholinergicStart: 31-14-3712Nfquhvp Respimat 1.25 mcg/inh inhalation aerosol 2 puff(s), Inhalation, Daily, Refill(s) 0, COPD Start Date: 01/09/19 Status: Ordered Repeat number: 1take 1 capsule by inhalation in the morningtiotropium (Spiriva) [address] 1 capsule into inhaler and inhale in the morning. ActiveVitamin D3 2000 intl units (2 sources)Start: 51-52-8878btoy 2000 [IU] by mouth once dailyVitamin D3 2000 intl units 2,000 unit(s), Oral, Daily, Refills(s) 0 Start Date: 04/14/25 Status: Ordered Repeat number: 1 Completed/Discontinued Medications MedicationDrug Class(es)DatesSig (Normalized)Sig (Original)Bacillus Coagulans- Inulin (Align Prebiotic-Probiotic) 5-1.25 MG-GM chewable tablet (9 sources) End: 42-33-4792Zrucpfss Coagulans-Inulin (Align Prebiotic-Probiotic) 5-1.25 MG- GM chewable tablet 1 capsule 1 (one) time each day at the same time. 08/01/2024 DiscontinuedBacillus Coagulans-Inulin (Align Prebiotic-Probiotic) 5-1.25 MG-GM chewable tablet 1 capsule 1 (one) time each day at the same time. Active betamethasone 0.5 mg/ml / clotrimazole 10 mg/ml topical cream (8 sources)Azole Antifungal, CorticosteroidStart: 67-02-2889yftmklyumktlo- clotrimazole Top 0.05%-1% Crm 15 gram Refill(s) 0 Start Date: 08/08/24 Status: OrderedRepeat number: 1bifidobacterium infantis 4 mg oral capsule (16 sources)Start: 06-10-2023 End: 27-29-9274xcfs 1 capsule by mouth once dailyProbiotic Product (Align) capsule TAKE 1 CAPSULE BY MOUTH DAILY AFTER COMPLETING THE ANTIBIOTICS COURSE 06/10/2023 08/01/2024 DiscontinuedStart: 32-31-2598vxda 1 capsule by mouth once dailyAlign 4 mg oral capsule 4 mg = 1 cap(s), Oral, Daily, Take after completing the Antibiotics course,# 28 cap(s), Refills(s) 0, Pharmacy: [facility]/pharmacy #[id number], 185, cm, 08/28/20 12:05:00 EDT, Height/Length Dosing, 103.7, kg, 08/28/20 12:05:00 EDT, Weight Dosing Start Date: 08/28/20 Status: OrderedcloNIDine hydrochloride 0.2 mg oral tablet (20 sources)Central alpha-2 Adrenergic AgonistStart: 48-98-1946umsm 0.1 mg by mouth twice dailyclonidine 0.1 mg, Oral, BID, Refills(s) 0, High blood pressure Start Date: 01/09/19 Status: OrderedStart: 01-09-2019 End: 95-93-7270Djgssqyx 0.2 mg Tab 0.2 mg = 1 tab(s), Tab, Oral, Start date 04/18/25 9:00:00 AM EDT, 04/16/25 7:30:00 EDT Start Date: 04/18/25 Stop Date: 04/18/25 Status: Completed Repeat number: 1labetalol 5 mg/mL IV Eda (1 source)Start: 04-14-2025 End: 48-09-3565vreqfcbbb 5 mg/mL IV Eda 5 mg = 1 mL, Injection, IV Push, q15min PRN Other (see comment), Routine, Start date 04/14/25 9:58:00 PM EDT, 04/14/25 21:58:00 EDT Start Date: 04/14/25 Stop Date: 04/16/25 Status: Discontinued Repeat number: 1psyllium 525 mg oral capsule (20 sources)Start: 59-40-2227pbfz 8 capsules by mouth once dailyMetamucil 525 mg oral capsule 1,050 mg = 2 cap(s), Oral, Daily, Take 2 hour apart from the other medications with at least 8 ounces of water, # 160 cap(s), Refills(s) 1, Pharmacy: [facility]/pharmacy #[id number],185, cm, 08/28/20 12:05:00 EDT, [...] (1 source)Abdominal pain; Translations: [Unspecified abdominal pain]Onset: 35-25-5967EpbcvjqgVvpdo cerebrovascular disease (1 source)Cerebral infarction; Translations: [Cerebral infarction, unspecified] Onset: 05-42-3575DtltmlgRqycf cerebrovascular disease (1 source)Acute cerebrovascular diseaseOnset: 43-55-3159Fayrphm disorders (2 sources)Anxiety disorder, unspecified; Translations: [F41.9]Onset: 04-18-2025 ChronicAsthma (19 sources)Bgztgf24-57-6234UznckjxIxlkcao dysrhythmias (6 sources)Unspecified atrial fibrillation; Translations: [Cardiac arrhythmia, unspecified]Onset: 43-90-8638LbbxkxnRibtpgb dysrhythmias (2 sources)Palpitations; Translations: [Palpitations]Onset: 21-95-7410Qctrwxhg Chronic kidney disease (1 source)Chronic kidney disease; Translations: [Chronic kidney disease, unspecified]Onset: 69-26-9256XwhojjgQxaodre kidney disease (8 sources)Chronic kidney disease; Translations: [CHRONIC KIDNEY DISEASE STAGE 3B]Onset: 51-62-8007Gmcsllbucp disorders (4 sources)Left bundle-branch block, unspecified; Translations: [Left bundle- branch block, unspecified]Onset: 09-39-6929PdamdqeYkkkfuuopa heart failure; nonhypertensive (5 sources)Heart failure; Translations: [Heart failure, unspecified]Onset: 01-46-2817NjpidbuAesarbjc atherosclerosis and other heart disease (6 sources)Unstable angina; Translations: [Chronic ischemic heart disease, unspecified]Onset: 61-64-8900JrepdpvRgvvkpoeds and other anemia (1 source)Anemia, unspecified; Translations: [ANEMIA UNSPECIFIED]Onset: 35-27-8745VlfpanhaJjyujziw mellitus with complications (20 sources)Type 2 diabetes mellitus with hyperglycemia; Translations: [Type 2 diabetes mellitus with diabetic chronic kidney disease]Onset: 08-27-2022 33-09-9234NsauafsYvrxcinr mellitus without complication (20 sources)Diabetes mellitus; Translations: [Type 2 diabetes mellitus without complications]Onset: 227490-31-5498WrzfaiyPqagndiyd of lipid metabolism (6 sources)Hyperlipidemia, unspecified; Translations: [Mixed hyperlipidemia] Onset: 24-61-1107PkvxhanCyvbvirxbmfxut and diverticulitis (18 sources)Diverticula of intestine; Translations: [Diverticulosis of intestine, part unspecified, without perforation or abscess without bleeding] Onset: 97-42-7598TrfqjrwGnbjajatt hypertension (5 sources)Essential (primary) hypertension; Translations: [ESSENTIAL PRIMARY HYPERTENSION]Onset: 55-45-6779QwvxsjvTfkgieoufdgrt symptoms and ill-defined conditions (4 sources)Post-void dribbling; Translations: [Post-micturition incontinence ] Onset: 68-29-0529KibhudzTqfzgzuizhzmr symptoms and ill-defined conditions (18 sources)Retention of urine; Translations: [Retention of urine, unspecified] Onset: 71-86-5380ZtggjhejVnutc valve disorders (15 sources)Nonrheumatic aortic (valve) stenosis; Translations: [Rheumatic tricuspid insufficiency]Onset: 20-30-1000LzmpzjpTtpiwbcwsjv (18 sources)Hemorrhoids; Translations: [Unspecified hemorrhoids]Onset: 24-77-6818BsibasgeBloxfctidhc of prostate (15 sources)Benign prostatic hypertrophy with outflow obstruction; Translations: [Benign prostatic hyperplasia with lower urinary tract symptoms]Onset: 19-13-4661AefsmptAnfbxwzmljyt with complications and secondary hypertension (4 sources)Hypertensive chronic kidney disease with stage 1 through stage 4 chronic kidney disease, or unspecified chronic kidney disease; Translations: [Hypertensive urgency ]Onset: 82-17-7979OhafzlhBsaksakirmic conditions of male genital organs (11 sources)Balanitis; 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]Onset: 61-77-0045RdwfnexIqcg effects of cerebrovascular disease (20 sources)Sequelae of cerebral infarction; Translations: [Unspecified sequelae of cerebral infarction]Onset: 289811-86-7175JmjmfwkCjaffxv (14 sources)Pain in toe; Translations: [Tinea unguium]42-17-6680KxlsrqkxXwowaj and vomiting (12 sources)Nausea; Translations: [Nausea]Onset: 11-62-1083XrlpgtuzEzawyevln of unspecified nature or uncertain behavior (1 source)Neoplastic disease; Translations: [Neoplasm of unspecified behavior of bone, soft tissue, and skin]32-44-4761GuoloorbObqoxjqfeyb chest pain (2 sources)Chest pain, unspecified; Translations: [Chest pain, unspecified] Onset: 21-81-0926QagckepqUalqcnhcmji deficiencies (2 sources)Vitamin D deficiency, unspecified; Translations: [Vitamin D deficiency, unspecified]Onset: 70-45-4193NyxjimkLfiziauocuy deficiencies (15 sources)Cobalamin deficiency; Translations: [Deficiency of other specified B group vitamins]Onset: 989899-90-0855ZekaucahRrnlifoba or stenosis of precerebral arteries (20 sources)Bilateral stenosis of carotid arteries; Translations: [Occlusion and stenosis of bilateral carotid arteries]Onset: 722261-71-1647LpgfdtdQwgen aftercare (3 sources)Long-term current use of anticoagulant; Translations: [retirement (current) use of anticoagulants]Onset: 69-19-2547IesbyprqGkktm aftercare (1 source)Long-term current use of drug therapy; Translations: [Other care home (current) drug therapy]Onset: 35-83-5985JiqohkmgXuyhg and unspecified benign neoplasm (20 sources)History of polyp of colon; Translations: [Personal history of colonic polyps]Onset: 49-29-4888DwctqlovQhaev and unspecified benign neoplasm (20 sources)Polyp of colon; Translations: [Polyp of colon]Onset: 06-09-2022 62-68-3694SkwmwgfoSdvuv and unspecified benign neoplasm (2 sources)Melanocytic nevus of trunk; Translations: [Melanocytic nevi of trunk] 28-70-4228ErjjsjhnOgryc circulatory disease (2 sources)Personal history of transient ischemic attack (TIA), and cerebral infarction without residual deficits; Translations: [Personal history of transient ischemic attack (TIA), and cerebral infarction without residual deficits]Onset: 94-03-3452NqyatyvxQjqbn connective tissue disease (18 sources)Pain in right foot; Translations: [Pain in right foot]09-08-2024 EpisodicOther diseases of bladder and urethra (3 sources)Detrusor overactivity; Translations: [Overactive bladder]Onset: 66-44-4604BqertwhIacgj diseases of bladder and urethra (8 sources)Overactive dbwrarf38-73-6141GcaoxubRtcma diseases of kidney and ureters (2 sources)Urinary tract obstruction; Translations: [Other obstructive and reflux uropathy]Onset: 53-59-6382DbcmxlgtXamoo gastrointestinal disorders (19 sources)Chronic constipation with eqvzqxee26-31-1655MwtvjvlpUdmfd gastrointestinal disorders (4 sources)Other fecal abnormalities; Translations: [OTHER FECAL ABNORMALITIES] Onset: 18-71-7833RxjrnwspOdyhy gastrointestinal disorders (18 sources)Urgent desire for stool; Translations: [Fecal urgency]Onset: 44-96-5500NlefgusxVpfdf gastrointestinal disorders (2 sources)Abnormal feces; Translations: [Other fecal abnormalities]Onset: 30-05-8536AcnrrccxYnsqa gastrointestinal disorders (16 sources)Loose gowdh06-81-3619EiindquzGecva gastrointestinal disorders (14 sources)Abdominal wind pain; Translations: [Gas pain]Onset: 06-10-2023 EpisodicOther gastrointestinal disorders (2 sources)Constipation, unspecified; Translations: [Constipation, unspecified] Onset: 08-39-4233QyirvxhwLxelq gastrointestinal disorders (11 sources)Mhadpnlirlvj97-36-7043PuxfwolpBjdbo gastrointestinal disorders (1 source)Other constipation; Translations: [Other constipation]Onset: 31-34-3951TwjkajeqWqqgd hereditary and degenerative nervous system conditions (20 sources)Essential tremor; Translations: [Essential tremor]Onset: 01-07-2024 06-98-1471GojtvlgSxjuq male genital disorders (11 sources)Acquired buried penis; 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]Onset: 53-37-0967QzavqnbUfgon nervous system disorders (20 sources)Polyneuropathy; Translations: [Polyneuropathy, unspecified]Onset: 036692-92-7558XsnalccQkooe skin disorders (3 sources)Actinic keratosis; Translations: [Actinic keratosis]08-24-2024 EpisodicOther skin disorders (3 sources)Lentiginosis; Translations: [Other melanin hyperpigmentation] 35-54-1615KokoocnlPclts skin disorders (3 sources)Seborrheic keratosis; Translations: [Other seborrheic keratosis] 16-57-3398IqyryhavBvzg-; endo-; and myocarditis; cardiomyopathy (except that caused by tuberculosis or sexually transmitted disease) (1 source)Pericardial effusion - noninflammatory; Translations: [Other pericardial effusion (noninflammatory)]Onset: 67-97-2853NlusemqjDyjbgtijk; thrombophlebitis and thromboembolism (1 source)History of thromboembolism of vein; Translations: [Personal history of other venous thrombosis and embolism]Onset: 68-82-5558PxrdakmeIxkafffo; pneumothorax; pulmonary collapse (2 sources)Pleural effusion, not elsewhere classified; Translations: [Pleural effusion, not elsewhere classified]Onset: 21-27-1124AqsczsxqCsitnpbck heart disease (4 sources)Pulmonary hypertension, unspecified; Translations: [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 disease]Onset: 65-28-6286BdopyugRvyscllq codes; unclassified (1 source)Sleep apnea, unspecified; Translations: [SLEEP APNEA UNSPECIFIED] Onset: 30-22-8731OfuxvlrWpfiffzc codes; unclassified (20 sources)Obstructive sleep apnea syndrome; Translations: [Obstructive sleep apnea (adult) (pediatric)]Onset: 025683-92-6688UbjkwhiQvumsukq codes; unclassified (7 sources)Family history of malignant neoplasm of digestive organ; Translations: [Family history of malignantneoplasm of digestive organs]Onset: 56-28-2585ChmiqpkgHgaizhsl codes; unclassified (19 sources)Family history of cancer of ijmmo95-68-7780KykiewsuKxmujuoc codes; unclassified (6 sources)Localized edema; Translations: [LOCALIZED EDEMA]Onset: 11-02-2022 EpisodicResidual codes; unclassified (1 source)Pain, unspecified; Translations: [Pain, unspecified]Onset: 02-15-2025 EpisodicUnclassified (4 sources)CHRN KIDNEY DISEASE STG 3 UNSP; Translations: [CHRN KIDNEY DISEASE STG 3 UNSP]Onset: 05-06-9963Qbcqxggnutir (3 sources)CONTACT W/AND (SUSP) EXPOS COVID-19; Translations: [CONTACT W/AND (SUSP) EXPOS COVID-19]Onset: 87-84-3525Entskcxcfnwi (1 source)COUGH, UNSPECIFIED; Translations: [COUGH, UNSPECIFIED]Onset: 80-97-5274Jkbgxgulnhkv (11 sources)Finding of sensation of tukzsyd56-85-8383Cwfzfatrkwrt (8 sources)Drug therapy cekzekc02-27-0269Tqspjswiflif (1 source)Other pericardial effusion (noninflammatory); Translations: [Other pericardial effusion (noninflammatory)]Onset: 37-42-7860Pmqobngnqtor (2 sources)Longstanding persistent atrial fibrillation; Translations: [Longstanding persistent atrial fibrillation]Onset: 63-58-7634Nqaen infection (18 sources)Verruca plantaris; Translations: [Plantar wart]14-09-6255Ninyxgqk Viral infection (3 sources)COVID-19; Translations: [COVID-19]Onset: 07-18-2022 Past or Other Problems Problem ClassificationProblemDateDocumented DateEpisodic/ChronicAcute and unspecified renal failure (1 source)Acute kidney failure, unspecified; Translations: [ACUTE KIDNEY FAILURE UNSPECIFIED]Onset: 96-42-0391TlpjbugbAusxuhjzx infection; unspecified site (1 source)Unspecified Escherichia coli [E. coli] as the cause of diseases classified elsewhere; Translations:[UNS E COLI CAUSE DX CLASS ELSEWHERE]Onset: 33-24-6008IacehzabGpzav and electrolyte disorders (5 sources)Hypo-osmolality and hyponatremia; Translations: [Hyperkalemia]Onset: 69-01-6976ZsybnkdqFfmvnfi and fatigue (2 sources)Weakness; Translations: [Other fatigue]Onset: 17-56-9835RxiutqjuFxbha aftercare (1 source)continuous churn buttermaker (current) use of aspirin; Translations: [COPS CURRENT USE OF ASPIRIN]Onset: 99-70-1401YucjhawnBnkfs aftercare (1 source)retirement (current) use of anticoagulants; Translations: [SNF CURRNT USE ANTICOAGULANTS]Onset: 29-37-8890GinvvfwyIujvs aftercare (1 source)Other care home (current) drug therapy; Translations: [OTH SNF CURRENT DRUG THERAPY]Onset: 19-92-4094OwbuhpglVnqwx circulatory disease (1 source)Other specified symptoms and signs involving the circulatory and respiratory systems; Translations:[OTH SPEC SX SIGNS INVLV CIRC RS]Onset: 02-88-4134FopxsjucXrhmv connective tissue disease (20 sources)Spasm of cervical paraspinous muscle; Translations: [Other muscle spasm]Onset: 003630-60-6343JdezlojqQwbex connective tissue disease (20 sources)Neurogenic pain; Translations: [Neuralgia and neuritis, unspecified] Onset: 361656-63-5485RvpwniksEfzlz connective tissue disease (2 sources)Pain of toes of bilateral feet; Translations: [Pain in right toe(s)] 15-44-7350CtzzyjnhPickw connective tissue disease (2 sources)Other symptoms and signs involving the musculoskeletal system; Translations: [Other symptoms and signs involving the musculoskeletal system] Onset: 55-93-9991QzouasnlFrsug lower respiratory disease (2 sources)Shortness of breath; Translations: [Shortness of breath]Onset: 30-64-0837NlizyftlYauto nervous system disorders (15 sources)Tremor; Translations: [Tremor, unspecified]Onset: 02-23-2024 20-18-3862DiiesufmLyqic screening for suspected conditions (not mental disorders or infectious disease) (3 sources)Raised prostate specific antigen; Translations: [Elevated prostate specific antigen [PSA]]Onset: 83-73-8059YkkaefarZtnsm skin disorders (6 sources)Asteatosis cutis; Translations: [Xerosis cutis]76-98-3681Optfnxzz Residual codes; unclassified (1 source)Edema, unspecified; Translations: [EDEMA UNSPECIFIED]Onset: 08-27-2022 EpisodicUnclassified (20 sources)Parkinson's disease; Translations: [Parkinson disease]Onset: 01-07-2024 Resolved: 967681-24-0694HxpwigrNqtpxjtzqfnk (1 source)CHRN KIDNEY DISEASE STG 3 UNSP; Translations: [CHRN KIDNEY DISEASE STG 3 UNSP]Onset: 35-55-1342Jmktijqwmdvj (1 source)CONTACT W/AND (SUSP) EXPOS COVID-19; Translations: [CONTACT W/AND (SUSP) EXPOS COVID-19]Onset: 65-01-9104Yybfbaphmstq (1 source)Other pericardial effusion (noninflammatory); Translations: [Other pericardial effusion (noninflammatory)]Onset: 67-67-6564Lvkynua tract infections (1 source)Urinary tract infection, site not specified; Translations: [UTI SITE NOT SPECIFIED]Onset: 91-56-2990Cghstftr Results Test NameValueInterpretationReference RangeFacilityCryotherapy, skin lesionon 89-87-4959XTOP HealthcareLesion biopsyon 25-67-7550Zdyi of biopsy: tangential Informed consent: discussed and [...] yes Amount of lidocaine used: 0.5 ccNOMS [facility] Patient's called to make you [...] to do for him? Please advise. Thanks.Normal [facility] Cultureon 16-41-5407Fivqfzrb identified Cx Nom (U)<9,000 colonies/ml mixed bacterial skin contaminants 2 Days PERFORMED BY: [place] [address] PATHOLOGIST DRY DIP WORKER JEREMY BEATTY M.D.[facility] Physician GroupComment on above: Performed By: #### CUU #### [address] [id number] authorization request for Savaysa 30mg. Prior authorization processed and submitted to patient's insurance, awaiting determination from insurance in response to medication coverage. Cover My Meds [place]# [id number] Osteopathic ClinicTelephoneon [id number] Nadir Beth 1940 M Date Provider Department Center 08/03/2025 [facility] CARD UT HeartVAS Family History Problem Relation Age of Onset Coronary artery disease Father Family Status - Relation Status Age at Mother Father DeceasedNormalUniversMarietta Osteopathic ClinicFollow-Upon 08-01-2025 Follow-[id number] Nadir Beth 1940 M Date Provider Department Center 08/01/2025 321-RUTHIE LINDA [facility] NEPHRO Comprehensiv Family History Problem Relation Age of Onset Coronary artery disease Father Family Status - Relation Status Age at Mother Father Level of Service:07688 [place] OFFICE/OUTPATIENT ESTABLISHED MOD MDM 30 MIN Reason for Visit and Comments: Electrolyte Disorders [542] Follow-up [11000115] - CKDNormalUniversMarietta Osteopathic ClinicOrders Onlyon 26-55-8580Wexnhv [id number] Nadir Beth 1940 M Date Provider Department Center 07/31/2025 [id number]-GPMMVTAWLEÓN WHITTINGTON Family History Problem Relation Age of Onset Coronary artery disease Father Family Status - Relation Status Age at Mother Father DeceasedNormalUniOhioHealth [facility]29on Addended by: HUONG JEAN on: 08/03/2025 08:37 AM Modules accepted: OrdersNormalUniversMarietta Osteopathic ClinicDocumentationon [id number] Nadir Beth 1940 M Date Provider Department Center 07/30/2025 43340-SZJOZHUONG JEAN PHARMACO Medical Pavi Family History Problem Relation Age of Onset Coronary artery disease Father Family Status - Relation Status Age at Mother Father Reason for Visit and Comments: Pharmacist Consult - Referral [Other][facility] Office Visiton 09-71-6361Rcspmf-up [id number] Nadir Beth 1940 M Date Provider Department Center 07/30/2025 69495-EXDUZLRUY SULLIVAN Family History Problem Relation Age of Onset Coronary artery disease Father Family Status - Relation Status Age at Mother Father Level of Service:69829 [place] OFFICE/OUTPATIENT ESTABLISHED MOD MDM 30 MIN Reason for Visit and Comments: Follow-up [761646] - 1 month follow up. Patient is now in assisted living and they are requesting a check up Valve Disorder [3372] - Aortic valve Atherosclerosis of renal artery [Other] Coronary Artery Disease [187] Bradycardia [899873] Hypertension [313957] Congestive Heart Failure [127] Pulmonary Hypertension [818] Hyperlipidemia [182] Hypertensive heart desease chronic kidney failure stage 1 t [Other] Atrial Fibrillation [80]NormalUnPaulding County HospitalOffice Visiton 73-72-0284Exdknc-up [id number] Nadir Beth 1940 M Date Provider Department Center 06/18/2025 Parris-CLARIBEL CISNEROS MILKA Beckett Family History Problem Relation Age of Onset Coronary artery disease Father Family Status - Relation Status Age at Mother Father Level of Service:21814 [place] OFFICE/OUTPATIENT ESTABLISHED MOD MDM 30 [facility] Onlyon 36-48-8243Pvzkeq [id number] Nadir Beth 1940 M Date Provider Department Center 06/14/2025 [id number]-SIFWZKMT, LEÓN MILKA Beckett Family History Problem Relation Age of Onset Coronary artery disease Father Family Status - Relation Status Age at Mother Father DeceasedNormalUniOhioHealth Mansfield HospitalUrology Office/Clinic Noteon 18-81-9166Lngzpzd Office/Clinic NoteUrology Office/Clinic Note Chief Complaint pt [...] out of his penis. Pt presented to [facility] ER 10/28/24 due to clot retention. [...] Given Patient Refuses SARS-C (more content not included)...[facility] HospitalComment on above:Result Comment: Electronically Signed [...] MARQUIS LOUISE MD Where: [facility] [address], [address] [place] [address]- Medications What How Much When [...] Contact prescribing physician i (more content not included)...[facility]36on [phone] called patient lvm to contact office back to reschedule appointment with .[facility] HospitalOffice Visiton 09-61-4134Fupkzf- up [id number] Nadir Beth 1940 M Date Provider Department Center 05/28/2025 35393-SBRXMTRUY TAYLOR Family History Problem Relation Age of Onset Coronary artery disease Father Family Status - Relation Status Age at Mother Father Level of Service:38703 [place] OFFICE/OUTPATIENT ESTABLISHED MOD MDM 30 [facility]Or[facility] Onlyon 36-08-1804Jgkayt [id number] Nadir Beth 1940 M Date Provider Department Center 05/28/2025 77334-XGVVBFRUY TAYLOR Family History Problem Relation Age of Onset Coronary artery disease Father Family Status - Relation Status Age at Mother Father DeceasedNormalUniOhioHealth Mansfield Hospital30on 59-34-285353Ebnfc Case Management Update Barriers to Discharge: Patient is to discharge to alf facility [place] [facility] [place] today. Stretcher transport has been established with [facility], pickler helper time 1934. Diet: Dietary Orders (From admission, [...] Request Once Comments: Omelet with green pepper, tajik cheese and onion Wheat toast Sausage Raisin bran Milk Decaf coffee 05/17/25 0802 05/16/25 1553 Special Kitchen Request Once Comments: [place] burger with cheese On the side: tomato, [...] Request Once Comments: Omelet with green pepper, tajik cheese and onion, 1 slice wheat toast, [...] Reason for OT? Answer: gait abnormality 05/10/25 0411NormalUniversMarietta Osteopathic Clinic30The patient is Moderately Stable - Low risk [...] Goal: Maintains hematologic stability Outcome: ProgressingNormalUniversity of Harris Health System Lyndon B. Johnson HospitalCB WITH AUTO DIFFERENTIALon 30-84-8292Zcjueafktzj distribution width (RBC) [Ratio]19.8 %High 11.5-15.0UnPaulding County HospitalComment on above:Performed By: #### [id number] #### [facility] (BEAKER) [address] [place], [place] [address]AEUDCZPVJTV MEAN CORPUSCULAR HEMOGLOBIN CONCENTRATION (G/DL) BY OQDGMSFHB08.4 g/dLLow32.0-35.0UnPaulding County HospitalComment on above:Performed By: #### [id number] #### [facility] (BEAKER) [address] [facility] [place], [place] [address]Qtjohzsfrv (Bld) [Volume fraction]34.2 %Low39.0-50.0UnPaulding County HospitalComment on above:Performed By: #### [id number] #### [facility] (BEAKER) [address] [place], [place] [address]Crcvjtdrhs (Bld) [Mass/Vol]10.4 g/dLLow13.0-17.0UnPaulding County HospitalComment on above:Performed By: #### [id number] #### [facility] ([facility]) [address] [place] [address]KRL (RBC) [Entitic mass]25.6 pgLow27.0-33.0UnPaulding County HospitalComment on above:Performed By: #### [id number] #### [facility] ([facility]) [address] [place] [place] [address]YHM (RBC) [Entitic vol]84.2 tIOntfxm88.0-98.0UnPaulding County HospitalComment on above:Performed By: #### [id number] #### [facility] ([facility]) [address] [place] [place] [address]FKFK (PER 100 WBCS) BY AUTOMATED COUNT0.0 %Qdtkcy9HtxrfgsbmzPaulding County HospitalComment on above:Performed By: #### [id number] #### [facility] ([facility]) [address] [place] [address]RIVZDNSTX (10*3/UL) IN BLOOD AUTOMATED [id number] 10*3/uLNormal 150-400UnPaulding County HospitalComment on above:Performed By: #### [id number] #### [facility] ([facility]) [address] [place] [address]WUB (Bld) [#/Vol]4.06 10*6/uLLow4.20-5.70UnPaulding County HospitalComment on above:Performed By: #### [id number] #### [facility] ([facility]) [address] [place] [address]FYG (Bld) [#/Vol]12.14 10*3/uLHigh4.00-10.60UnPaulding County HospitalComment on above:Performed By: #### [id number] #### [facility] ([facility]) [address] [place] [address]RNXZHNCKVBHCQ METABOLIC PANELon 21-26-1022VWTDAAT AMINOTRANSFERASE (SGPT) (U/L) IN SER/PLAS<8Tjn1-41LlioriqpmwPaulding County HospitalComment on above:Performed By: #### [id number] ####[facility] ([facility])[address] [place] [address]Rgpqgzr [Mass/Vol]3.4 g/dLLow3.5-5.7 [facility] North HospitalComment on above:Performed By: #### [id number] ####[facility] ([facility])[address] [place] [address]XCK [Catalytic activity/Vol]68 U/ENiblyy00-835FnxglnzlqkPaulding County HospitalComment on above:Performed By: #### [id number] ####[facility] ([facility])[address] [place] [address]Zsvkl gap [Moles/Vol]15 mmol/LNormal7-20UnPaulding County HospitalComment on above:Performed By: #### [id number] ####[facility] ([facility])[address] [place] [address]NRU [Catalytic activity/Vol]13 U/L Ckzphw87-08RcuethgsmpPaulding County HospitalComment on above:Performed By: #### [id number] ####[facility] ([facility])[address] [place] [address] Bilirubin [Mass/Vol]0.5 mg/dLNormal0.3-1.0UnPaulding County Hospital Comment on above:Performed By: #### [id number] ####[facility] ([facility])[address], [place] [address]Tfyfmlf [Mass/Vol]8.6 mg/dLNormal8.6-10.3UnPaulding County HospitalComment on above:Performed By: #### [id number] ####[facility] ([facility])[address] [place] [address]Cackewxd [Moles/Vol]104 mmol/ZNpeabl67-499FsobbllelzPaulding County HospitalComment on above:Performed By: #### [id number] ####[facility] ([facility])[address] [place] [address] CO2 [Moles/Vol]25 mmol/MEftdyu59-34MpcmjptaytPaulding County HospitalComment on above:Performed By: #### [id number] ####[facility] ([facility])[address] [place] [address]Gwhmsnjafk [Mass/Vol]1.73 mg/dLHigh0.70-1.30UnPaulding County HospitalComment on above:Performed By: #### [id number] ####[facility] ([facility])[address] [facility] [place] [address]FFKAKTHVPG FILTRATION RATE ML/MIN/1.73 SQ M.ZYCAIEOXM26.0 mL/min/1.73m*2Low>60.0UnPaulding County HospitalComment on above:Result Comment: [facility]???s estimated glomerular filtration rate (eGFR) will [...] anyone group of individuals.Performed By: #### [id number] ####[facility] ([facility])[address] [place], [place] [address]Azzshjl [Mass/Vol]239 mg/aIJdpx80-961IvykxppekePaulding County HospitalComment on above:Performed By: #### [id number] ####[facility] ([facility])[address] [facility] [place], [place] [address]Sqwvckwmk [Moles/Vol]3.9 mmol/LNormal3.5-5.1UnPaulding County HospitalComment on above:Performed By: #### [id number] ####[facility] ([facility])[address] [facility] [place], [place] [address]Cbdxizv [Mass/Vol]6.3 g/dLNormal 6.0-8.3UnPaulding County HospitalComment on above:Performed By: #### [id number] ####[facility] ([facility])[address] [place] [place] [address]Cajbmg [Moles/Vol]140 mmol/DYxcnmb470-960XkyexmbqjePaulding County HospitalComment on above:Performed By: #### [id number] ####[facility] ([facility])[address] [place] [address]Rjoe nitrogen [Mass/Vol]38 mg/dLHigh7-25UnPaulding County HospitalComment on above:Performed By: #### [id number] ####[facility] ([facility])[address] [place] [address]EYMV NITROGEN/CREATININE (MASS RATIO) IN SER/PLAS22.0NormalUniversMarietta Osteopathic ClinicComkalamazoo psychiatric hospital on above: Performed By: #### [id number] ####[facility] ([facility])[address] [place] [address]YZhm [phone] Attestation signed by Nikolas Gonzalez MD at [...] was admitted as a direct transfer from [place] on 05/10/2025 for acute on chronic heart failure. 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 He presented to the ED on the advice of his physician following an increase in lower extremity edema with associated labs showing a BNP 6200. In the [place] ED he was found to have pulmonary vascular congestion with right sided pleural effusion on chest x-ray, and found to be hypertensive at 190/68, and EKG showed A-fib, he was initially managed medically with lasix and antihypertensives prior to transfer. Patient follows up with Dr. Bland who had scheduled right heart cath on 05/10/2025. At [facility] echo was performed which was unable to [...] Sullivan CNP MILKA Beckett 06/15/2025 10:30 AM [facility] CV ECHO ROOM 2 [facility]ART [place] Heart[facility]AS 06/18/2025 11:30 AM Claribel Cisneros MD MILKA Dominguez [facility] Your medication list START taking these medications [...] known as: Lasix glimepi (more content not included)...NormalTriHealth Bethesda North Hospital MANUAL DIFFERENTIALon 21-19-6988XDGSMRWWL (10*3/UL) IN BLOOD BY CALCULATION0.05 10*3/uLNormal0.00-0.20UnPaulding County HospitalComment on above: Performed By: #### [id number] #### [facility] ([facility]) [address] [place] [place], [place] [address]UBTUXCDRX/100 LEUKOCYTES IN BLOOD BY AUTOMATED COUNT0.4 %Normal 0.0-1.0UnPaulding County HospitalComment on above:Performed By: #### [id number] #### [facility] ([facility]) [address] [facility] [place], [place] [address]SEPVYNYSZHH (10*3/UL) IN BLOOD BY CALCULATION0.05 10*3/uLNormal 0.00-0.50UnPaulding County HospitalComment on above:Performed By: #### [id number] #### [facility] ([facility]) [address] [facility] [place], [place] [address]ZIUGRNSNOFA/100 LEUKOCYTES IN BLOOD BY AUTOMATED COUNT0.4 % Normal0.0-6.0UnPaulding County HospitalComment on above:Performed By: #### [id number] #### [facility] ([facility]) [address] [facility] [place], [place] [address]KHXIUWQJ GRANULOCYTES (10*3/UL) IN BLOOD BY CALCULATION0.07 10*3/uLNormal0.00-0.20UnPaulding County HospitalComment on above: Performed By: #### [id number] #### [facility] ([facility]) [address] [facility] [place], [place] [address]EKWBHXAE GRANULOCYTES/100 LEUKOCYTES IN BLOOD BY AUTOMATED COUNT 0.6 %Normal0.0-1.0UnPaulding County HospitalComment on above:Performed By: #### [id number] #### [facility] ([facility]) [address] [place], [place] [address]KCYUXDKRARP (10*3/UL) IN BLOOD BY CALCULATION0.87 10*3/uLLow 1.20-4.00UnPaulding County HospitalComment on above:Performed By: #### [id number] #### [facility] ([facility]) [address] [place], [place] [address]SDQTARYGEYV/100 LEUKOCYTES IN BLOOD BY AUTOMATED COUNT7.2 %Low 20.0-45.0UnPaulding County HospitalComment on above:Performed By: #### [id number] #### [facility] ([facility]) [address] [place], [place] [address]NOISYHFQP (10*3/UL) IN BLOOD BY CALCUATION1.92 10*3/uLHigh 0.10-1.00UnPaulding County HospitalComment on above:Performed By: #### [id number] #### [facility] ([facility]) [address] [place], [place] [address]EEDVVQOSI/100 LEUKOCYTES IN BLOOD BY AUTOMATED COUNT15.8 %High 5.0-12.0UnPaulding County HospitalComment on above:Performed By: #### [id number] #### [facility] ([facility]) [address] [place], [place] [address]RVQQMIJRLOS (10*3/UL) IN BLOOD BY CALCULATION9.2 10*3/uLHigh 1.6-7.6UnPaulding County HospitalComment on above:Performed By: #### [id number] #### [facility] ([facility]) [address] [place], [place] [address]XLKMQIPOALN/100 LEUKOCYTES IN BLOOD BY AUTOMATED COUNT75.6 %High 40.0-72.0UnPaulding County HospitalComment on above:Performed By: #### [id number] #### [facility] ([facility]) [address] [place], [place] [address]MFAORJBTss 69-04-9960KMYTRUNLPzcnnc called to BRANDEN Norton at [facility] HospitalNURSNOTEPatient Name: Nadir Beth : 1940 Primary [...] Liz Joshi RN Rapid Response Team Nurse [phone] 05/17/2025 10:35 [facility] HospitalNURSNOTEPatient Name: Nadir Beth : 1940 Primary [...] time, but encouraged to reach out to WORKERS COMPENSATION CLAIMS ANALYST if anything changes. Marc Araiza RN Rapid Response Team Nurse [phone] 05/17/2025 2:32 AMNormalUnPaulding County HospitalPOCT GLUCOSE METER UNSOLICITED RESULTSon 72-70-8337Wthawwy [Mass/Vol]331 mg/xQNsup99-555LlsuenvwbtPaulding County HospitalComment on above:Order Comment: Waived Testing in the ED is performed under the ED CLIA certificate #[id number].Result Comment: [email or web address] Performed By: #### [id number] ####[facility] ([facility])[address] [place] [address]Ltxnjqk [Mass/Vol]310 mg/oYCmgt73-730RhfwyftkeeTriHealth Bethesda North HospitalComment on above:Order Comment: Waived Testing in the ED is performed under the ED CLIA certificate #[id number].Result Comment: [email or web address] Performed By: #### [id number] ####[facility] ([facility])[address] [place] [address]Hmzzdvj [Mass/Vol]235 mg/wWNvzj75-352RrjtnembdePaulding County HospitalComment on above:Order Comment: Waived Testing in the ED is performed under the ED CLIA certificate #[id number].Result Comment: [email or web address] Performed By: #### [id number] ####[facility] ([facility])[address] [address] [phone] patient is Moderately Stable - Low risk [...] and behaviors that affect risk of falls [place] fall precautions as indicated by assessment Educate [...] Outcome: Progressing Flowsheets (Take (more content not included)...[facility]30Daily Case Management Update Barriers to Discharge: Pending clinical course and clearance. POD #1 TAVR. Needs PT & OT to reevaluate to make sure patient can still return home. Slight ARTUR. ECHO today. Blood cultures pending. Diet: Dietary Orders (From admission, onward) Start Ordered 05/16/25 1553 Special Kitchen Request Once Comments: [place] burger with cheese On the side: tomato, [...] Request Once Comments: Omelet with green pepper, tajik cheese and onion, 1 slice wheat toast, [...] Reason for OT? Answer: gait abnormality 05/10/25 0411NormalUniversity [facility] 04-96-1739SZKFGDWYC PARTIAL THROMBOPLASTIN TIME IN PPP BY COAGULATION ASSAY77.8 SecondsHigh 25.0-35.0UnPaulding County HospitalComment on above:Result Comment: Clinical significance of the APTT is questionable in the presence of heparin. Performed By: #### [id number] #### [facility] ([facility]) [address] [place], [place] [address]BHYQHBDEC PARTIAL THROMBOPLASTIN TIME IN PPP BY COAGULATION ASSAY63.8 YmkvsoiUelu77.0-35.0UnPaulding County HospitalComment on above:Result Comment: Clinical significance of the APTT is questionable in the presence of heparin.Performed By: #### [id number] #### [facility] ([facility]) [address] [place] [address], [place] [address]YGMUL METABOLIC PANELon 69-99-5736Uwaum gap [Moles/Vol]19 mmol/L Normal7-20UnPaulding County HospitalComment on above:Performed By: #### [id number] #### [facility] ([facility]) [address] [place], [place] [address]Ciemvmv [Mass/Vol]8.6 mg/dLNormal8.6-10.3UnPaulding County HospitalComment on above:Performed By: #### [id number] #### [facility] ([facility]) [address] [facility] [place] [address]Xasodidy [Moles/Vol]103 mmol/XSrozrm64-287GhtzmimepjPaulding County HospitalComment on above:Performed By: #### [id number] #### [facility] ([facility]) [address] [place] [address]XV4 [Moles/Vol]22 mmol/MJhdonm14-78UohhibzlxtPaulding County HospitalComment on above:Performed By: #### [id number] #### [facility] ([facility]) [address] [place] [address]Ksteerruig [Mass/Vol]1.71 mg/dLHigh0.70-1.30UnPaulding County HospitalComment on above:Performed By: #### [id number] #### [facility] ([facility]) [address] [place] [address]MDCOKHMGCR FILTRATION RATE ML/MIN/1.73 SQ M.EAJTHAITP62.5 mL/min/1.73m*2Low>60.0UnPaulding County HospitalComment on above:Result Comment: [facility]???s estimated glomerular filtration rate (eGFR) will [...] group of individuals.Performed By: #### [id number] #### [facility] ([facility]) [address] [place] [place] [address]Yjokjfb [Mass/Vol]222 mg/nSHdbq61-841FojvbwlswpPaulding County HospitalComment on above:Performed By: #### [id number] #### [facility] ([facility]) [address] [place] [place] [address]Xpnzhdmzm [Moles/Vol]4.2 mmol/LNormal3.5-5.1UnPaulding County HospitalComment on above:Performed By: #### [id number] #### [facility] ([facility]) [address] [place] [address]Fpojwy [Moles/Vol]140 mmol/PAvaxdk742-983IgryotchogPaulding County HospitalComment on above:Performed By: #### [id number] #### [facility] ([facility]) [address] [place] [address]Pkva nitrogen [Mass/Vol]41 mg/dLHigh7-25UnPaulding County HospitalComment on above:Performed By: #### [id number] #### [facility] ([facility]) [address] [place] [place], [place] [address]XPFV NITROGEN/CREATININE (MASS RATIO) IN SER/PLAS24.0Normal [facility] North HospitalComment on above:Performed By: #### [id number] #### [facility] ([facility]) [address] [place] [address]XVUSE CULTUREon 80-59-9223Tjflbxas identified Cx Nom (Bld)No growth at 5 daysNormalUniOhioHealth Mansfield HospitalComment on above:Order Comment: From a different site than #1.Performed By: #### [id number] ####[facility] ([facility])[address] [place], [place] [address]Vwrjrmeac By: #### [id number] #### [facility] ([facility]) [address] [place], [place] [address]XZAre 33-29-60[address]Nvsswyuqcvt distribution width (RBC) [Ratio]19.5 %High11.5-15.0UnPaulding County HospitalComment on above:Performed By: #### [id number] #### [facility] ([facility]) [address] [place] [place], [place] [address]ZGDWDOZRNQB MEAN CORPUSCULAR HEMOGLOBIN CONCENTRATION (G/DL) BY MPJSZLXVQ74.2 g/dLLow32.0-35.0UnPaulding County HospitalComment on above:Performed By: #### [id number] #### [facility] ([facility]) [address] [place], [place] [address]Hhfcxtxzdw (Bld) [Volume fraction]33.1 %Low39.0-50.0UnPaulding County HospitalComment on above:Performed By: #### [id number] #### [facility] ([facility]) [address] [place] [address]Lyucbzwgwe (Bld) [Mass/Vol]10.0 g/dLLow13.0-17.0UnPaulding County HospitalComment on above:Performed By: #### [id number] #### [facility] ([facility]) [address] [place] [address]SPM (RBC) [Entitic mass]25.4 pgLow27.0-33.0UnPaulding County HospitalComment on above:Performed By: #### [id number] #### [facility] ([facility]) [address] [place] [address]YUA (RBC) [Entitic vol]84.0 gGDstppi42.0-98.0UnPaulding County HospitalComment on above:Performed By: #### [id number] #### [facility] ([facility]) [address] [place] [address]DWOISSZFL (10*3/UL) IN BLOOD AUTOMATED [id number] 10*3/uLNormal 150-400UnPaulding County HospitalComment on above:Performed By: #### [id number] #### [facility] ([facility]) [address] [place] [address]YFO (Bld) [#/Vol]3.94 10*6/uLLow4.20-5.70UnPaulding County HospitalComment on above:Performed By: #### [id number] #### [facility] ([facility]) [address] [place] [address]BHM (Bld) [#/Vol]14.93 10*3/uLHigh4.00-10.60UnPaulding County HospitalComment on above:Performed By: #### [id number] #### [facility] ([facility]) [address] [facility] [place] [place] [address]Fmyvdc Onlyon 88-34-5040Adunpa [id number] Nadir Beth 1940 M Date Provider Department Center 05/16/2025 [address]-YHGRXDN, [facility] VASC LAB [place] Heart[facility] No family history on fileNormalUniversity of Harris Health System Lyndon B. Johnson HospitalPOCT GLUCOSE METER UNSOLICITED RESULTSon 34-94-3652Tlyadys [Mass/Vol]374 mg/kKCciy12-740 [facility] HospitalComment on above:Order Comment: Waived Testing in the ED is performed under the ED CLIA certificate #[id number].Result Comment: [email or web address] By: #### [id number] #### [facility] ([facility]) [address] [place], [place] [address]Zboknml [Mass/Vol]292 mg/pSFodo12-843ClybkjcwaaPaulding County HospitalComment on above:Order Comment: Waived Testing in the ED is performed under the ED CLIA certificate #[id number].Result Comment: [email or web address] Performed By: #### [id number] #### [facility] ([facility]) [address] [place], [place] [address]Uhhjkoa [Mass/Vol]254 mg/zMKcgs11-674FfolqbqeemPaulding County HospitalComment on above:Order Comment: Waived Testing in the ED is performed under the ED CLIA certificate #[id number].Result Comment: [email or web address] Performed By: #### [id number] #### [facility] ([facility]) [address] [place], [place] [address]Arqfsxd [Mass/Vol]272 mg/gWZadl48-206SsvvlfytctPaulding County HospitalComment on above:Order Comment: Waived Testing in the ED is performed under the ED CLIA certificate #[id number].Result Comment: [email or web address] Performed By: #### [id number] #### [facility] ([facility]) [address] [facility] [place] [address]oa [id number] Case Management Update Multidisciplinary rounds have been completed. Barriers to Discharge: Patient to go for TAVR Today. Discharge dispo: pending clinical course, Prior to Operation PT/OT rec Patient is able to return to prior living environment (Presents from SNF). Patient is from [facility], with tentative plan to return when medically ready. Diet: Dietary Orders (From admission, onward) Start Ordered 05/15/25 0001 Diet NPO Diet effective midnight Comments: Sips with medications Question: Reason for NPO: Answer: Operation/Procedure 05/14/25 1521 05/14/25 0631 Special Kitchen Request Once Comments: Omelet with green pepper, tajik cheese and onion, 1 slice wheat toast, [...] Reason for OT? Answer: gait abnormality 05/10/25 0411NormalUniversity [facility]30The patient is Moderately Stable - Low risk [...] the next 3 months Outcome: ProgressingNormalUniversity of [facility] 05-15-2025 ACTIVATED PARTIAL THROMBOPLASTIN TIME IN PPP BY COAGULATION ASSAY73.2 Seconds High25.0-35.0UnPaulding County HospitalComment on above:Result Comment: Clinical significance of the APTT is questionable in the presence of heparin. Performed By: #### [id number] #### [facility] ([facility]) [address] [place], [place] [address]DVVQISSUX PARTIAL THROMBOPLASTIN TIME IN PPP BY COAGULATION ASSAY51.8 SgskwqvFuqb05.0-35.0UnPaulding County HospitalComment on above:Result Comment: Clinical significance of the APTT is questionable in the presence of heparin.Performed By: #### [id number] #### [facility] ([facility]) [address] [place], [place] [address]MGEXG METABOLIC PANELon 44-78-7782Hjqau gap [Moles/Vol]16 mmol/L Normal7-20UnPaulding County HospitalComment on above:Performed By: #### [id number] #### [facility] ([facility]) [address] [place] [address]Nbgsrsr [Mass/Vol]8.9 mg/dLNormal8.6-10.3UnPaulding County HospitalComment on above:Performed By: #### [id number] #### [facility] ([facility]) [address] [place] [address]Ttixebcu [Moles/Vol]99 mmol/BNhmigv26-803VyhulawwbzPaulding County HospitalComment on above:Performed By: #### [id number] #### [facility] ([facility]) [address] [place] [place] [address]IP9 [Moles/Vol]27 mmol/ZAidnyu74-25LffpcwhfvrPaulding County HospitalComment on above:Performed By: #### [id number] #### [facility] ([facility]) [address] [place] [address]Tmgqjqnpwi [Mass/Vol]1.61 mg/dLHigh0.70-1.30UnPaulding County HospitalComment on above:Performed By: #### [id number] #### [facility] ([facility]) [address] [place] [address]DNXUYCOVIJ FILTRATION RATE ML/MIN/1.73 SQ M.YPSAWQNPO14.4 mL/min/1.73m*2Low>60.0UnPaulding County HospitalComment on above:Result Comment: [facility]???s estimated glomerular filtration rate (eGFR) will [...] group of individuals.Performed By: #### [id number] #### [facility] ([facility]) [address] [place] [place] [address]Ohdmbid [Mass/Vol]255 mg/cNXmky14-721NsmjzosvibPaulding County HospitalComment on above:Performed By: #### [id number] #### [facility] ([facility]) [address] [place] [place] [address]Yfdmffiha [Moles/Vol]4.5 mmol/LNormal3.5-5.1UnPaulding County HospitalComment on above:Performed By: #### [id number] #### [facility] ([facility]) [address] [place] [address]Kamxpe [Moles/Vol]137 mmol/RBeynkb629-166AsmamecqawPaulding County HospitalComment on above:Performed By: #### [id number] #### [facility] ([facility]) [address] [place] [address]Gnjz nitrogen [Mass/Vol]34 mg/dLHigh7-25UnPaulding County HospitalComment on above:Performed By: #### [id number] #### [facility] ([facility]) [address] [place] [address]WVSM NITROGEN/CREATININE (MASS RATIO) IN SER/PLAS21.1Normal [facility] HospitalComment on above:Performed By: #### [id number] #### [facility] ([facility]) [address] [place] [place] [address]CCWym 13-24-7471Xippvlioail distribution width (RBC) [Ratio]19.0 %High11.5-15.0UnPaulding County HospitalComment on above:Performed By: #### [id number] #### [facility] ([facility]) [address] [place] [address]NLVEPDBRBLS MEAN CORPUSCULAR HEMOGLOBIN CONCENTRATION (G/DL) BY ONJXKBNDZ33.7 g/dLLow32.0-35.0UnPaulding County HospitalComment on above:Performed By: #### [id number] #### [facility] ([facility]) [address] [place] [address]Cyvacmaqbt (Bld) [Volume fraction]33.6 %Low39.0-50.0UnPaulding County HospitalComment on above:Performed By: #### [id number] #### [facility] ([facility]) [address] [place] [address]Cvdzkotvmn (Bld) [Mass/Vol]10.3 g/dLLow13.0-17.0UnPaulding County HospitalComment on above:Performed By: #### [id number] #### [facility] ([facility]) [address] [place] [address]AFE (RBC) [Entitic mass]25.2 pgLow27.0-33.0UnPaulding County HospitalComment on above:Performed By: #### [id number] #### [facility] ([facility]) [address] [place] [address]BUI (RBC) [Entitic vol]82.4 mIZcjdzd80.0-98.0UnPaulding County HospitalComment on above:Performed By: #### [id number] #### [facility] ([facility]) [address] [place] [address]LRZWECYYF (10*3/UL) IN BLOOD AUTOMATED AUNPD411 10*3/uLNormal 150-400UnPaulding County HospitalComment on above:Performed By: #### [id number] #### [facility] ([facility]) [address] [place] [address]QQP (Bld) [#/Vol]4.08 10*6/uLLow4.20-5.70UnPaulding County HospitalComment on above:Performed By: #### [id number] #### [facility] ([facility]) [address] [place] [address]NSI (Bld) [#/Vol]12.04 10*3/uLHigh4.00-10.60UnPaulding County HospitalComment on above:Performed By: #### [id number] #### [facility] KEVIN) [address] [address]HBbb [id number] Attestation signed by García Muir MD at [...] was admitted as a direct transfer from [place] on 05/10/2025 for acute on chronic heart failure. 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 He presented to the ED on the advice of his physician following an increase in lower extremity edema with associated labs showing a BNP 6200. In the [place] ED he was found to have pulmonary vascular congestion with right sided pleural effusion on chest x-ray, and found to be hypertensive at 190/68, initially managed medically with lasix and antihypertensives prior to transfer. At [facility] echo was performed which was unable to [...] 101 CO2 mmol/L 2 (more content not included)...[facility] HospitalHPH&P reviewed. The patient was examined and [...] his family members and they agreed to TAVR.[facility] HospitalNURSNOTTsehootsooi Medical Center ([facility] [phone] called to Karen OTERO on MICU.[facility] HospitalOPNOTTsehootsooi Medical Center ([facility]) [id number] Operative Note Date: 05/15/2025 Location: [facility] (Cath) Name: Nadir [...] the right common femoral artery using two 6-Czech ProGlide devices. Angio-Seal vascular closure in the left common femoral artery. Placement of SENTINEL cerebral embolic protection device. OPERATORS: Interventional Cardiology Security Technician: Claribel Cisneros MD Cardiac Surgery Security Technician: Negro Lopez MD Food Consultant Interventional Cardiology Security Technician: Aissatou Hughes METHODS: Procedure was explained to the patient with risks and benefits. he signed informed consent. he was brought to open hearth furnace laborer in a fasting state. The procedure was performed in the cardiac open hearth furnace laborer under conscious sedation. The right wrist area was prepped and draped in usual fashion. Access was obtained using ultrasound guidance and micropuncture technique in the right radial artery and a 6-Czech x 11 cm Hydrophilic sheath was placed. Verapamil was given through the sheath. Both groin areas, and the right neck area were prepped and draped in usual fashion. Ultrasound guidance was used for micropuncture access in the right internal jugular vein and a 6-Czech x 11 cm introducer sheath was secured in place. Micropuncture technique and ultrasound guidance were used for access in the right common femoral artery and inner cannula angiography was performed followed by upsizing to a 6-Czech x 11 cm sheath. The same was done for the access in the left common femoral artery. At this time, we proceeded with the preclosure in the right common femoral artery using 2 crossing Perclose devices and the access was then upsized over a wire to a 10-Czech sheath. A 5-Czech balloon-tipped pacemaker wire was advanced through the internal jugular vein sheath to the right ventricular apex and adequate capture was confirmed. Heparin was given intravenously and therapeutic ACT confirmed during the rest of the procedure and additional heparin given as needed. Through the left common femoral sheath, an angled 6-Czech pigtail catheter was then advanced to the ascending aorta and placed in the noncoronary cusp. Aortic root angiography was performed in the coplanar view as determined by prior CT scan measurements. A 6-Czech IM diagnostic catheter was then advanced through the right radial sheath and then navigated using an 0.035 inch wire to the ascending aorta and this was used to place an exchange length Grandslam 0.014 inch wire. The wire was advanced to the left carotid artery. A Goldsmith device was then prepped using standard techniques and then advanced. The proximal filter was deployed in the innominate artery followed by deployment of the distal filter. The Goldsmith device was then secured in place. The right common femoral access was then upsized using an exchange length Lunderquist wire [which was placed through a multipurpose catheter] to the 14-Czech Le E-sheath. The sheath was secured in place. A 6-Czech AL1 diagnostic catheter was advanced via the E-sheath, and using a straight stiff Glidewire, the aortic valve was crossed and the catheter was advanced in the left ventricular cavity, and using an exchange length J-wire, a 6-Czech angled pigtail catheter was advanced to make [...] retracted. The delivery c (more content not included)...NormalUnPaulding County HospitalPOCT GLUCOSE METER UNSOLICITED RESULTSon 83-28-8531Aoknvzm [Mass/Vol]193 mg/yARphd39-857EcwtwewncgPaulding County HospitalComment on above:Order Comment: Waived Testing in the ED is performed under the ED CLIA certificate #[id number].Result Comment: wzxwcla6Qdbrjlcej By: #### [id number] #### [facility] ([facility]) [address] [place], [place] [address]Njdelhx [Mass/Vol]334 mg/vBHyqi36-406UqnaparsbkPaulding County HospitalComment on above:Order Comment: Patient had pre procedure medications already for cathResult Comment: eijwycm2Oeoaaovaa By: #### [id number] ####[facility] ([facility]ER)[address] [place], [place] [address]Xwunqij [Mass/Vol]288 mg/qJIpcw09-691RckvacsaabPaulding County HospitalComment on above:Order Comment: Waived Testing in the ED is performed under the ED CLIA certificate #[id number].Result Comment: xscfkes9Ikgpdrglb By: #### [id number] #### [facility] ([facility]) [address] [place], [place] [address]Rgmatas [Mass/Vol]351 mg/wDVhqo47-452VyeabamvmzPaulding County HospitalComment on above:Order Comment: Waived Testing in the ED is performed under the ED CLIA certificate #[id number].Result Comment: clarcom Performed By: #### [id number] #### [facility] ([facility]) [address] [place], [place] [address]fg [id number] Case Management Update Multidisciplinary rounds have been [...] is for patient to discharge to [facility] when medically ready. Diet: Dietary Orders (From admission, onward) Start Ordered 05/14/25 0631 Special Kitchen Request Once Comments: Omelet with green pepper, tajik cheese and onion, 1 slice wheat toast, [...] Reason for OT? Answer: gait abnormality 05/10/25 0411NormalUniversMarietta [facility]30The patient is Moderately Stable - Low risk [...] the next 3 months Outcome: ProgressingNormalUniversity of [facility] 05-14-2025 ACTIVATED PARTIAL THROMBOPLASTIN TIME IN PPP BY COAGULATION ASSAY57.1 Seconds High25.0-35.0UnPaulding County HospitalComment on above:Result Comment: Clinical significance of the APTT is questionable in the presence of heparin. Performed By: #### [id number] #### [facility] (BE[facility]) [address] [place], [place] [address]UVAHWDYRP PARTIAL THROMBOPLASTIN TIME IN PPP BY COAGULATION ASSAY33.6 ZyqvldlCsitqe34.0-35.0UnPaulding County HospitalComment on above:Order Comment: Baseline aPTT before initiating heparin infusion.Result Comment: Clinical significance of the APTT is questionable in the presence of heparin.Performed By: #### [id number] ####[facility] (BEAKER)[address] [place], [place] [address]HKRNC METABOLIC PANELon 56-03-1842Eaokb gap [Moles/Vol]13 mmol/LNormal7-20UnPaulding County HospitalComment on above:Performed By: #### [id number] #### [facility] ([facility]) [address] [place] [address]Lhpjbpb [Mass/Vol]8.4 mg/dLLow8.6-10.3UnPaulding County HospitalComment on above:Performed By: #### [id number] #### [facility] ([facility]) [address] [place] [address]Gntuatgk [Moles/Vol]100 mmol/CNivbvw86-056SwxwtmlfuiPaulding County HospitalComment on above:Performed By: #### [id number] #### [facility] ([facility]) [address] [address]HO6 [Moles/Vol]29 mmol/XRazpbp39-55QsibtwjqjzPaulding County HospitalComment on above:Performed By: #### [id number] #### [facility] ([facility]) [address] [place], [place] [address]Luvmqwpljl [Mass/Vol]1.74 mg/dLHigh0.70-1.30UnPaulding County HospitalComment on above:Performed By: #### [id number] #### [facility] ([facility]) [address] [place], [place] [address]NSJXZRDYXF FILTRATION RATE ML/MIN/1.73 SQ M.RPJTSXGSH42.7 mL/min/1.73m*2Low>60.0UnPaulding County HospitalComment on above:Result Comment: [facility]???s estimated glomerular filtration rate (eGFR) will [...] affect anyone group of individuals.Performed By: #### [id number] #### [facility] ([facility]) [address] [place], [place] [address]Eavuilu [Mass/Vol]186 mg/dRGqia87-267EgyzjqonbjPaulding County HospitalComment on above:Performed By: #### [id number] #### [facility] ([facility]) [address] [place], [place] [address]Pniwhgoty [Moles/Vol]3.8 mmol/LNormal3.5-5.1UnPaulding County HospitalComment on above:Performed By: #### [id number] #### [facility] ([facility]) [address] [place], [place] [address]Knykxu [Moles/Vol]138 mmol/IRcixvl849-685AgpvkwgqfgPaulding County HospitalComment on above:Performed By: #### [id number] #### [facility] ([facility]) [address] [place], [place] [address]Zhii nitrogen [Mass/Vol]34 mg/dLHigh7-25UnPaulding County HospitalComment on above:Performed By: #### [id number] #### [facility] ([facility]) [address] [place], [place] [address]PXLZ NITROGEN/CREATININE (MASS RATIO) IN SER/PLAS19.5Normal [facility] HospitalComment on above:Performed By: #### [id number] #### [facility] ([facility]) [address] [place], [place] [address]CQSKTXQI COUNTon 53-29-9492RBVDJBETA (10*3/UL) IN BLOOD AUTOMATED UKZRR143 10*3/xLCxzhkb540-218BcvgmffhkbPaulding County Hospital Comment on above:Performed By: #### [id number] #### [facility] ([facility]) [address] [place], [place] [address]IPXU GLUCOSE METER UNSOLICITED RESULTSon 89-46-7280Cdrjqji [Mass/Vol]303 mg/xYEuxl62-978EnsoslpokzPaulding County HospitalComment on above:Order Comment: Waived Testing in the ED is performed under the ED CLIA certificate #[id number].Result Comment: gynfysn4Rhfsoukeb By: #### [id number] #### [facility] (BEAKER) [address] [place], [place] [address]Ujszljx [Mass/Vol]254 mg/pWOzss67-710PqbmlqzyvhTriHealth Bethesda North HospitalComment on above:Order Comment: Waived Testing in the ED is performed under the ED CLIA certificate #[id number].Result Comment: [email or web address] Performed By: #### [id number] #### [facility] ([facility]) [address] [place], [place] [address]Cghxisp [Mass/Vol]225 mg/qTLqyt77-995AqunsrygztPaulding County HospitalComment on above:Order Comment: Waived Testing in the ED is performed under the ED CLIA certificate #[id number].Result Comment: ooperac Performed By: #### [id number] ####[facility] ([facility])[address] [place], [place] [address]Yhbfzdr [Mass/Vol]209 mg/mOGnst64-576MlimxsrlgeTriHealth Bethesda North HospitalComment on above:Order Comment: Waived Testing in the ED is performed under the ED CLIA certificate #[id number].Result Comment: ooperac Performed By: #### [id number] ####[facility] ([facility])[address] [place], [place] [address]4zo [id number] patient is Moderately Stable - Low risk [...] swelling over the next 3 months Outcome: ProgressingNormalUniversMarietta Osteopathic ClinicBASIC METABOLIC PANELon 25-81-7557Aopea gap [Moles/Vol]14 mmol/LNormal7-20UnPaulding County HospitalComment on above:Performed By: #### [id number] #### [facility] ([facility]) [address] [place] [address]Whwjxuf [Mass/Vol]8.5 mg/dLLow8.6-10.3UnPaulding County HospitalComment on above:Performed By: #### [id number] #### [facility] ([facility]) [address] [place] [address]Zqacuwdu [Moles/Vol]99 mmol/WRkjwxt73-134YyyjoaefyoPaulding County HospitalComment on above:Performed By: #### [id number] #### [facility] ([facility]) [address] [place] [address]XJ9 [Moles/Vol]29 mmol/NVrrzuf81-87NhxshrjkxhPaulding County HospitalComment on above:Performed By: #### [id number] #### [facility] ([facility]) [address] [place] [address]Ilekiekpsh [Mass/Vol]1.65 mg/dLHigh0.70-1.30UnPaulding County HospitalComment on above:Performed By: #### [id number] #### [facility] ([facility]) [address] [place] [address]ILZQLRMRYD FILTRATION RATE ML/MIN/1.73 SQ M.JTACCOBZX87.2 mL/min/1.73m*2Low>60.0UnPaulding County HospitalComment on above:Result Comment: [facility] [facility]???s estimated glomerular filtration rate (eGFR) [...] affect anyone group of individuals.Performed By: #### [id number] #### [facility] ([facility]) [address] [place], [place] [address]Ekjkevy [Mass/Vol]206 mg/gPHgdc29-020JqubwattmkPaulding County HospitalComment on above:Performed By: #### [id number] #### [facility] ([facility]) [address] [place], [place] [address]Bbsglxlwq [Moles/Vol]3.5 mmol/LNormal3.5-5.1UnPaulding County HospitalComment on above:Performed By: #### [id number] #### [facility] ([facility]) [address] [place], [place] [address]Czvfxo [Moles/Vol]138 mmol/LPfbcmf368-127OxtjftztbhPaulding County HospitalComment on above:Performed By: #### [id number] #### [facility] ([facility]) [address] [place], [place] [address]Hnze nitrogen [Mass/Vol]32 mg/dLHigh7-25UnPaulding County HospitalComment on above:Performed By: #### [id number] #### [facility] ([facility]) [address] [place], [place] [address]MWXQ NITROGEN/CREATININE (MASS RATIO) IN SER/PLAS19.4Normal [facility] HospitalComment on above:Performed By: #### [id number] #### [facility] ([facility]) [address] [place], [place] [address]TAExo 07-67-9740Uqwvjvyxvyh distribution width (RBC) [Ratio]18.9 %High11.5-15.0UnPaulding County HospitalComment on above:Performed By: #### [id number] #### [facility] ([facility]) [address] [place] [address]KHMSHAGUSEJ MEAN CORPUSCULAR HEMOGLOBIN CONCENTRATION (G/DL) BY HJCSRLNSX93.3 g/dLLow32.0-35.0UnPaulding County HospitalComment on above:Performed By: #### [id number] #### [facility] ([facility]) [address] [place] [address]Daghfqdruq (Bld) [Volume fraction]31.3 %Low39.0-50.0UnPaulding County HospitalComment on above:Performed By: #### [id number] #### [facility] ([facility]) [address] [place] [address]Mxkphehwkw (Bld) [Mass/Vol]9.8 g/dLLow13.0-17.0UnPaulding County HospitalComment on above:Performed By: #### [id number] #### [facility] ([facility]) [address] [place] [address]MNJ (RBC) [Entitic mass]25.8 pgLow27.0-33.0UnPaulding County HospitalComment on above:Performed By: #### [id number] #### [facility] ([facility]) [address] [place] [place] [address]OGW (RBC) [Entitic vol]82.4 eLQyiqnh29.0-98.0UnPaulding County HospitalComment on above:Performed By: #### [id number] #### [facility] ([facility]) [address] [place] [address]LQNHNVOEV (10*3/UL) IN BLOOD AUTOMATED ZCQVH350 10*3/uLNormal 150-400UnPaulding County HospitalComment on above:Performed By: #### [id number] #### [facility] ([facility]) [address] [place] [address]SFR (Bld) [#/Vol]3.80 10*6/uLLow4.20-5.70UnPaulding County HospitalComment on above:Performed By: #### [id number] #### [facility] ([facility]) [address] [place], [place] [address]GIW (Bld) [#/Vol]10.18 10*3/uLNormal4.00-10.60UnPaulding County HospitalComment on above:Performed By: #### [id number] #### [facility] ([facility]) [address] [place], [place] [address]IVEG GLUCOSE METER UNSOLICITED RESULTSon 61-34-4718Rnvqrxg [Mass/Vol]219 mg/qLMyee04-088IsmxkczvzhPaulding County HospitalComment on above:Order Comment: Waived Testing in the ED is performed under the ED CLIA certificate #[id number].Result Comment: umwxqlm2Otlcoomro By: #### [id number] #### [facility] ([facility]) [address] [place], [place] [address]Mblumab [Mass/Vol]277 mg/dGCmcf04-022KsafmkhamqPaulding County HospitalComment on above:Order Comment: Patient had pre procedure medications already for cathResult Comment: xfywtli3Vsywyerqu By: #### [id number] ####[facility] ([facility])[address] [place], [place] [address]Jsukdbk [Mass/Vol]274 mg/nPOupl01-328JgnadfzljtPaulding County HospitalComment on above:Order Comment: Waived Testing in the ED is performed under the ED CLIA certificate #[id number].Result Comment: mcethvh7Crudhldvb By: #### [id number] #### [facility] (BEAKER) [address] [place], [place] [address]Wpphlkq [Mass/Vol]222 mg/vEAolv47-452XxcvwwbxujPaulding County HospitalComment on above:Order Comment: Waived Testing in the ED is performed under the ED CLIA certificate #[id number].Result Comment: [email or web address] Performed By: #### [id number] #### [facility] (BE[facility]) [address] [place], [place] [address]The patient is Moderately Stable - Low risk of patient condition declining or worsening The patient's goals for the shift include Comfort, rest The clinical goals for the shift include Stable vitals, comfortNormalUniversity of [facility]30The patient is Moderately Stable - Low [...] the next 3 months Outcome: ProgressingNormalUniversity of [facility]30The patient is Moderately Stable - Low [...] over the next 3 months Outcome: ProgressingNormalUniversity Cleveland ClinicANTI-XA (HEPARIN LEVEL)on 05-50-5904XKDLTRF UNFRACTIONATED (U/ML) IN PPP BY CHROMOGENIC METHOD 0.32 IU/mLNormal0.3-0.7UnPaulding County HospitalComment on above: Result Comment: Rivaroxaban and Apixaban will interfere with the anti Xa assay used to monitor UFH and LMWH.Performed By: #### [id number] #### [facility] (BEAKER) [address] [place], [place] [address]APPDOOT UNFRACTIONATED (U/ML) IN PPP BY CHROMOGENIC METHOD0.42 IU/mLNormal0.3-0.7UnPaulding County HospitalComment on above:Result Comment: Rivaroxaban and Apixaban will interfere with the anti Xa assay used to monitor UFH and LMWH.Performed By: #### [id number] ####[facility] (BEAKER)[address] [place], [place] [address]FFDNT METABOLIC PANELon 05-12-2025 Anion gap [Moles/Vol]14 mmol/LNormal7-20UnPaulding County Hospital Comment on above:Performed By: #### [id number] ####[facility] ([facility])[address] [place] [address]Ksazomp [Mass/Vol]8.5 mg/dLLow8.6-10.3UnPaulding County HospitalComment on above:Performed By: #### [id number] ####[facility] ([facility])[address] [place] [address]Jscxokhw [Moles/Vol]99 mmol/IEmashm52-293MlmjllyjzxPaulding County HospitalComment on above:Performed By: #### [id number] ####[facility] ([facility])[address] [place] [address] CO2 [Moles/Vol]29 mmol/YIynikd05-65JzzentndmvPaulding County HospitalComment on above:Performed By: #### [id number] ####[facility] ([facility])[address] [place], [place] [address]Zzwjeyqimp [Mass/Vol]1.63 mg/dLHigh0.70-1.30UnPaulding County HospitalComment on above:Performed By: #### [id number] ####[facility] ([facility])[address] [place], [place] [address]OKSOAICZQG FILTRATION RATE ML/MIN/1.73 SQ M.RCIQAOZSG89.8 mL/min/1.73m*2Low>60.0UnPaulding County HospitalComment on above:Result Comment: [facility]???s estimated glomerular filtration rate (eGFR) will [...] anyone group of individuals.Performed By: #### [id number] ####[facility] ([facility])[address] [place], [place] [address]Taxbejn [Mass/Vol]191 mg/hTIysr70-249XffydfosfwPaulding County HospitalComment on above:Performed By: #### [id number] ####[facility] ([facility])[address] [place], [place] [address]Ktbviunet [Moles/Vol]3.5 mmol/LNormal3.5-5.1UnPaulding County HospitalComment on above:Performed By: #### [id number] ####[facility] ([facility])[address] [place], [place] [address]Bydnkl [Moles/Vol]138 mmol/L Qncipl667-464IetosedkvxPaulding County HospitalComment on above:Performed By: #### [id number] ####[facility] ([facility])[address] [place], [place] [address]Sopj nitrogen [Mass/Vol]36 mg/dLHigh7-25UnPaulding County HospitalComment on above:Performed By: #### [id number] ####[facility] ([facility])[address] [place], [place] [address]QBWP NITROGEN/CREATININE (MASS RATIO) IN SER/PLAS22.1Normal [facility] HospitalComment on above:Performed By: #### [id number] ####[facility] ([facility])[address] [place], [place] [address]RWEX GLUCOSE METER UNSOLICITED RESULTSon 29-90-0270Oqucmus [Mass/Vol]275 mg/kDDstq72-973 [facility] HospitalComment on above:Order Comment: Waived Testing in the ED is performed under the ED CLIA certificate #[id number].Result Comment: fwhbzhq60Inhlklusd By: #### [id number] ####[facility] ([facility])[address] [place], [place] [address]Cosqorl [Mass/Vol]285 mg/qQIedu32-482ZanejustekPaulding County HospitalComment on above:Order Comment: Waived Testing in the ED is performed under the ED CLIA certificate #[id number].Result Comment: nkoch4 Performed By: #### [id number] #### [facility] ([facility]) [address] [place] [place], [place] [address]Cvzihqf [Mass/Vol]332 mg/vFLdxs67-340VaduihppbhPaulding County HospitalComment on above:Order Comment: Waived Testing in the ED is performed under the ED CLIA certificate #[id number].Result Comment: nkoch4 Performed By: #### [id number] #### [facility] ([facility]) [address] [place], [place] [address]Akgblhi [Mass/Vol]214 mg/pSTwfp79-104KizjtmuqelPaulding County HospitalComment on above:Order Comment: Waived Testing in the ED is performed under the ED CLIA certificate #[id number].Result Comment: [email or web address] Performed By: #### [id number] #### [facility] ([facility]) [address] [facility] [place] [place] [address]ja [id number] patient is Moderately Stable - Low risk of patient condition declining or worsening The patient's goals for the shift include comfort rest The clinical goals for the shift include VSS Over the shift, the patient did not make progress toward the following goals. Barriers to progression include. Recommendations to address these barriers include.NormalUnPaulding County HospitalANTI-XA (HEPARIN LEVEL)on 71-92-2605RLIPHQA UNFRACTIONATED (U/ML) IN PPP BY CHROMOGENIC METHOD0.27 IU/mL Low0.3-0.7UnPaulding County HospitalComment on above:Result Comment: Rivaroxaban and Apixaban will interfere with the anti Xa assay used to monitor UFH and LMWH.Performed By: #### [id number] #### [facility] ([facility]) [address] [place], [place] [address]VLTVAQJ UNFRACTIONATED (U/ML) IN PPP BY CHROMOGENIC METHOD0.38 IU/mLNormal0.3-0.7UnPaulding County HospitalComment on above:Result Comment: Rivaroxaban and Apixaban will interfere with the anti Xa assay used to monitor UFH and LMWH.Performed By: #### [id number] ####[facility] ([facility])[address] [place], [place] [address]JDCDWRL UNFRACTIONATED (U/ML) IN PPP BY CHROMOGENIC METHOD0.28 IU/mLLow0.3-0.7UnPaulding County Hospital Comment on above:Result Comment: Rivaroxaban and Apixaban will interfere with the anti Xa assay used to monitor UFH and LMWH.Performed By: #### [id number] ####[facility] ([facility])[address] [place], [place] [address]GPZHB METABOLIC PANELon 79-46-9766Qbyau gap [Moles/Vol]15 mmol/LNormal7-20UnPaulding County HospitalComment on above:Performed By: #### [id number] #### [facility] ([facility]) [address] [place], [place] [address]Qlbeqjj [Mass/Vol]8.4 mg/dLLow8.6-10.3UnPaulding County HospitalComment on above:Performed By: #### [id number] #### [facility] ([facility]) [address] [place], [place] [address]Kbpojtiv [Moles/Vol]101 mmol/RKwdwky50-988TxldefoivsPaulding County HospitalComment on above:Performed By: #### [id number] #### [facility] ([facility]) [address] [place], [place] [address]ER7 [Moles/Vol]28 mmol/UVvcsmt85-60YmqjiwuglaPaulding County HospitalComment on above:Performed By: #### [id number] #### [facility] ([facility]) [address] [place], [place] [address]Pdnoqpudul [Mass/Vol]1.56 mg/dLHigh0.70-1.30UnPaulding County HospitalComment on above:Performed By: #### [id number] #### [facility] ([facility]) [address] [place], [place] [address]IIGCYLMUWY FILTRATION RATE ML/MIN/1.73 SQ M.FFYGGMOUT78.0 mL/min/1.73m*2Low>60.0UnPaulding County HospitalComment on above:Result Comment: The [facility]???s estimated glomerular filtration rate (eGFR) will [...] affect anyone group of individuals.Performed By: #### [id number] #### [facility] ([facility]) [address] [place] [address]Cvktwsa [Mass/Vol]237 mg/yFRgid86-619ViqzkzdsdsPaulding County HospitalComment on above:Performed By: #### [id number] #### [facility] ([facility]) [address] [place] [address]Xmfhclfav [Moles/Vol]4.2 mmol/LNormal3.5-5.1UnPaulding County HospitalComment on above:Performed By: #### [id number] #### [facility] ([facility]) [address] [place], [place] [address]Mwvshh [Moles/Vol]140 mmol/MUywbeb419-518BaoztxddeePaulding County HospitalComment on above:Performed By: #### [id number] #### [facility] ([facility]) [address] [place], [place] [address]Pdix nitrogen [Mass/Vol]31 mg/dLHigh7-25UnPaulding County HospitalComment on above:Performed By: #### [id number] #### [facility] ([facility]) [address] [place] [address]OOCX NITROGEN/CREATININE (MASS RATIO) IN SER/PLAS19.9Normal [facility] HospitalComment on above:Performed By: #### [id number] #### [facility] ([facility]) [address] [place] [address]EHUam 20-01-3149Zddmdbjmksj distribution width (RBC) [Ratio]19.0 %High11.5-15.0UnPaulding County HospitalComment on above:Performed By: #### [id number] #### [facility] ([facility]) [address] [place] [address]VRHPRPSLWMI MEAN CORPUSCULAR HEMOGLOBIN CONCENTRATION (G/DL) BY GRSYVTXQC91.1 g/dLLow32.0-35.0UnPaulding County HospitalComment on above:Performed By: #### [id number] #### [facility] ([facility]) [address] [place] [address]Tjlipplsct (Bld) [Volume fraction]31.8 %Low39.0-50.0UnPaulding County HospitalComment on above:Performed By: #### [id number] #### [facility] ([facility]) [address] [place] [address]Ppuwrqvxfq (Bld) [Mass/Vol]9.9 g/dLLow13.0-17.0UnPaulding County HospitalComment on above:Performed By: #### [id number] #### [facility] ([facility]) [address] [place] [address]EOJ (RBC) [Entitic mass]25.8 pgLow27.0-33.0UnPaulding County HospitalComment on above:Performed By: #### [id number] #### [facility] ([facility]) [address] [place] [address]GNU (RBC) [Entitic vol]82.8 sVOwtiok85.0-98.0UnPaulding County HospitalComment on above:Performed By: #### [id number] #### [facility] ([facility]) [address] [place] [address]ZORHBNIFO (10*3/UL) IN BLOOD AUTOMATED [id number] 10*3/uLNormal 150-400UnPaulding County HospitalComment on above:Performed By: #### [id number] #### [facility] ([facility]) [address] [place] [address]DFQ (Bld) [#/Vol]3.84 10*6/uLLow4.20-5.70UnPaulding County HospitalComment on above:Performed By: #### [id number] #### [facility] ([facility]) [address] [place] [address]QVP (Bld) [#/Vol]11.58 10*3/uLHigh4.00-10.60UnPaulding County HospitalComment on above:Performed By: #### [id number] #### [facility] ([facility]) [address] [place] [address]HEVCHXHsg 52-54-4249OCWMBIBCykitf For Consult aortic stenosis Referring Provider: Mesha Hughes MD History Of Present Illness Nadir Beth is a 85 y.o. male presenting with acute on chronic heart failure. He was found to have a BMP greater than [address] Youssef's office in [place] yesterday. He also had signs of congestive [...] and lower leg paresis. He saw Dr. 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 Electronically signed: Yenni Stafford MD.NormalTriHealth Bethesda North HospitalComment on above:Order Comment: Low dose (half) contrastHEMOGLOBIN A1Con 90-51-2021Fbfenkb [Mass/Vol]220 mg/dLNormalUniversMarietta Osteopathic Clinic Comment on above:Performed By: #### [id number] #### [facility] ([facility]) [address] [place], [place] [address]AiM1c (Bld) [Mass fraction]9.3 %High4.0-6.0UnPaulding County HospitalComment on above:Performed By: #### [id number] #### [facility] ([facility]) [address] [place], [place] [address]IVgo 86-29-4360YCWihnqv For Consult aortic stenosis Referring Provider: Mesha Hughes MD History Of Present Illness Nadir Beth is a 85 y.o. male presenting with acute on chronic heart failure. He was found to have a BMP greater than [address] Youssef's office in [place] yesterday. He also had signs of congestive [...] leg paresis. He saw Dr. 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 The patient was examined and there are no changes to the H&P. Will proceed with RHC and coronary angiogram for acute on chronic HFpEF and aortic stenosis work up.NormalUnPaulding County HospitalLIPID PANELon 27-19-1873YDMZ/HDL2.7 mg/dLNormalUniOhioHealth Mansfield HospitalComment on above:Performed By: #### [id number] ####[facility] ([facility])[address] [facility] [place] [place] [address]Luqgjjzakgm [Mass/Vol]187 mg/fEGdetoy184-916ZqpscnrnnwPaulding County HospitalComment on above:Performed By: #### [id number] ####[facility] ([facility])[address] [facility] [place] [address]Deyqnccxj [Mass/Vol]93 mg/dL Normal<150UnPaulding County HospitalComment on above:Result Comment: TRIGLYCERIDE REFERENCE RANGE: 20 YEARS AND OLDER CARDIOVASCULAR RISK LESS THAN 150 mg/dL LOW RISK 150 TO 199 mg/dL BORDERLINE RISK 200 mg/dL AND GREATER HIGH RISKPerformed By: #### [id number] ####[facility] ([facility])[address] [place], [place] [address]Jwnpwugfu [Mass/Vol]99 mg/dLNormal 0-160UnPaulding County HospitalComment on above:Performed By: #### [id number] ####[facility] ([facility])[address] [facility] [place] [address]Dldmbterq [Mass/Vol]69 mg/vNLiavea33-32QtfiwcmyewPaulding County HospitalComment on above:Performed By: #### [id number] ####[facility] ([facility])[address] [place], [place] [address]IFZ HDL CHOL. (LDL+VLDL)118NormalUniOhioHealth Mansfield HospitalComment on above:Performed By: #### [id number] ####[facility] ([facility])[address] [facility] [place] [address]ETKYN VLDL-C19 mg/dLNormal0-40 [facility] HospitalComment on above:Performed By: #### [id number] ####[facility] ([facility])[address] [facility] [place] [address]SJDR GLUCOSE METER UNSOLICITED RESULTSon 36-29-7732Ztmfcvq [Mass/Vol]306 mg/uVEbsr25-419 [facility] HospitalComment on above:Order Comment: Waived Testing in the ED is performed under the ED CLIA certificate #[id number].Result Comment: [id number] By: #### [id number] ####[facility] ([facility])[address] [place], [place] [address]Lybkvdg [Mass/Vol]348 mg/nRSsvw58-950BxgoxvwjnePaulding County HospitalComment on above:Order Comment: Waived Testing in the ED is performed under the ED CLIA certificate #[id number].Result Comment: clarcom Performed By: #### [id number] #### [facility] ([facility]) [address] [place], [place] [address]Vxqhcvn [Mass/Vol]201 mg/xQFaxx73-623AdomneqegqPaulding County HospitalComment on above:Order Comment: Waived Testing in the ED is performed under the ED CLIA certificate #[id number].Result Comment: clarcom Performed By: #### [id number] #### [facility] ([facility]) [address] [place], [place] [address]Ugyeelq [Mass/Vol]224 mg/qNMexy07-795YuyrbvvykjPaulding County HospitalComment on above:Order Comment: Patient had pre procedure medications already for cathResult Comment: clarcomPerformed By: #### [id number] ####[facility] ([facility])[address] [place], [place] [address]rg 05-10-2025 30The patient is Moderately Stable - [...] swelling over the next 3 months Outcome: ProgressingNormalUniversgreen cross hospital [facility]30The patient is Moderately Stable - Low risk of patient condition declining or worsening The patient's goals for the shift include comfort The clinical goals for the shift include VSSNormalUniversity Cleveland ClinicANTI-XA (HEPARIN LEVEL)on 61-91-6431VLYZNMY UNFRACTIONATED (U/ML) IN PPP BY CHROMOGENIC METHOD0.25 IU/mLLow0.3-0.7UnPaulding County Hospital Comment on above:Result Comment: Rivaroxaban and Apixaban will interfere with the anti Xa assay used to monitor UFH and LMWH.Performed By: #### [id number] #### [facility] ([facility]) [address] [place], [place] [address]YSWZCWK UNFRACTIONATED (U/ML) IN PPP BY CHROMOGENIC METHOD0.21 IU/mLLow0.3-0.7UnPaulding County HospitalComment on above:Order Comment: Check anti-Xa level every 6 hours while on heparin infusion, or per protocol.Result Comment: Rivaroxaban and Apixaban will interfere with the anti Xa assay used to monitor UFH and LMWH.Performed By: #### [id number] ####[facility] ([facility])[address] [place], [place] [address]CRQEcn 05-10-2025 ACTIVATED PARTIAL THROMBOPLASTIN TIME IN PPP BY COAGULATION ASSAY34.1 Seconds Moathr08.0-35.0UnPaulding County HospitalComment on above:Order Comment: Baseline aPTT before initiating heparin infusion.Result Comment: Clinical significance of the APTT is questionable in the presence of heparin. Performed By: #### [id number] #### [facility] ([facility]) [address] [place], [place] [address]H-IZJV NATRIURETIC PEPTIDEon 25-97-1507Udiuaslxjkk peptide B (Bld) [Mass/Vol]736 pg/mLHigh0-100UnPaulding County HospitalComment on above:Performed By: #### [id number] #### [facility] ([facility]) [address] [place], [place] [address]CEP WITH AUTO DIFFERENTIALon 01-77-8125Wgyauriet (Bld) [#/Vol] 0.04 10*3/uLNormal0.00-0.20UnPaulding County HospitalComment on above: Performed By: #### [id number] #### [facility] ([facility]) [address] [place], [place] [address]Tpchgdwxv/100 WBC (Bld)0.4 %Normal0.0-1.0UnPaulding County HospitalComment on above:Performed By: #### [id number] #### [facility] ([facility]) [address] [place], [place] [address]Zghfamcyuyg (Bld) [#/Vol]0.15 10*3/uLNormal0.00-0.50UnPaulding County HospitalComment on above:Performed By: #### [id number] #### [facility] ([facility]) [address] [place], [place] [address]Xoxrwdcixnq/100 WBC (Bld)1.4 %Normal0.0-6.0UnPaulding County HospitalComment on above:Performed By: #### [id number] #### [facility] ([facility]) [address] [place], [place] [address]Junqtdcfsxw distribution width (RBC) [Ratio]19.2 %High11.5-15.0 [facility] HospitalComment on above:Performed By: #### [id number] #### [facility] ([facility]) [address] [place], [place] [address]XMGFQUKESHV MEAN CORPUSCULAR HEMOGLOBIN CONCENTRATION (G/DL) BY KEOTIFRQB55.2 g/dLLow32.0-35.0UnPaulding County HospitalComment on above:Performed By: #### [id number] #### [facility] ([facility]) [address] [place] [address]Jrvlnkhczn (Bld) [Volume fraction]33.3 %Low39.0-50.0UnPaulding County HospitalComment on above:Performed By: #### [id number] #### [facility] ([facility]) [address] [place] [address]Edlfphybzc (Bld) [Mass/Vol]10.4 g/dLLow13.0-17.0UnPaulding County HospitalComment on above:Performed By: #### [id number] #### [facility] ([facility]) [address] [place] [address]Hucwiybf granulocytes (Bld) [#/Vol]0.06 10*3/uLNormal0.00-0.20 [facility] HospitalComment on above:Performed By: #### [id number] #### [facility] ([facility]) [address] [place], [place] [address]Ztvrzwju granulocytes/100 WBC (Bld)0.6 %Normal0.0-1.0UnPaulding County HospitalComment on above:Performed By: #### [id number] #### [facility] ([facility]) [address] [place] [address]Zytbpnubspy (Bld) [#/Vol]0.86 10*3/uLLow1.20-4.00UnPaulding County HospitalComment on above:Performed By: #### [id number] #### [facility] ([facility]) [address] [place] [address]Hhobjyngkiz/100 WBC (Bld)8.2 %Low20.0-45.0UnPaulding County HospitalComment on above:Performed By: #### [id number] #### [facility] ([facility]) [address] [place] [address]WFP (RBC) [Entitic mass]25.7 pgLow27.0-33.0UnPaulding County HospitalComment on above:Performed By: #### [id number] #### [facility] ([facility]) [address] [place] [address]MMF (RBC) [Entitic vol]82.2 sPQcdutu82.0-98.0UnPaulding County HospitalComment on above:Performed By: #### [id number] #### [facility] ([facility]) [address] [place], [place] [address]Iioxmkdki (Bld) [#/Vol]1.08 10*3/uLHigh0.10-1.00UnPaulding County HospitalComment on above:Performed By: #### [id number] #### [facility] ([facility]) [address] [place], [place] [address]Jqtpxidsr/100 WBC (Bld)10.3 %Normal5.0-12.0UnPaulding County HospitalComment on above:Performed By: #### [id number] #### [facility] ([facility]) [address] [facility] [place], [place] [address]Gfmuqnmvgar (Bld) [#/Vol]8.31 10*3/uLHigh1.60-7.60UnPaulding County HospitalComment on above:Performed By: #### [id number] #### [facility] ([facility]) [address] [place], [place] [address]Miscxlceulr/100 WBC (Bld)79.1 %High40.0-72.0UnPaulding County HospitalComment on above:Performed By: #### [id number] #### [facility] ([facility]) [address], [place] [address]XFPV (PER 100 WBCS) BY AUTOMATED COUNT0.0 %Bilsjp3WehzydbqinPaulding County HospitalComment on above:Performed By: #### [id number] #### [facility] ([facility]) [address] [place], [place] [address]PTMQOSHGQ (10*3/UL) IN BLOOD AUTOMATED BPADT105 10*3/uLNormal 150-400UnPaulding County HospitalComment on above:Performed By: #### [id number] #### [facility] ([facility]) [address] [place] [address]MFW (Bld) [#/Vol]4.05 10*6/uLLow4.20-5.70UnPaulding County HospitalComment on above:Performed By: #### [id number] #### [facility] ([facility]) [address] [place] [address]YRI (Bld) [#/Vol]10.50 10*3/uLNormal4.00-10.60UnPaulding County HospitalComment on above:Performed By: #### [id number] #### [facility] ([facility]) [address] [place] [address]RBMAGVJAUZRMD METABOLIC PANELon 62-37-4489Ctihsqb [Mass/Vol]3.5 g/dLNormal3.5-5.7UnPaulding County HospitalComment on above:Performed By: #### [id number] ####[facility] ([facility])[address] [place] [address] ALP [Catalytic activity/Vol]72 U/BSvimjh54-603ClzekacdbqPaulding County HospitalComment on above:Performed By: #### [id number] ####[facility] ([facility])[address] [place] [address]BMA [Catalytic activity/Vol]7 U/L Normal7-52UnPaulding County HospitalComment on above:Performed By: #### [id number] ####[facility] ([facility])[address] [place], [place] [address]Ndrsv gap [Moles/Vol]16 mmol/LNormal7-20UnPaulding County HospitalComment on above:Performed By: #### [id number] ####[facility] ([facility])[address] [place], [place] [address]LGL [Catalytic activity/Vol]14 U/SZwqdnd18-77BcshfdwaidPaulding County HospitalComment on above:Performed By: #### [id number] ####[facility] ([facility])[address] [place] [address]Jtkmfpmhy [Mass/Vol]0.4 mg/dL Normal0.3-1.0UnPaulding County HospitalComment on above:Performed By: #### [id number] ####[facility] ([facility])[address] [place] [address] Calcium [Mass/Vol]8.5 mg/dLLow8.6-10.3UnPaulding County HospitalComment on above:Performed By: #### [id number] ####[facility] ([facility])[address] [place] [address]Xxeynfjl [Moles/Vol]101 mmol/MDkzqec16-152VfsmgesjsyPaulding County HospitalComment on above:Performed By: #### [id number] ####[facility] ([facility])[address] [place] [address]BE[address] [Moles/Vol]26 mmol/LNormal 21-31UnPaulding County HospitalComment on above:Performed By: #### [id number] ####[facility] ([facility])[address] [place] [address]Fmsyxwabzm [Mass/Vol]1.45 mg/dLHigh0.70-1.30UnPaulding County HospitalComment on above:Performed By: #### [id number] ####[facility] ([facility])[address] [place] [address]KRTZNHIEMR FILTRATION RATE ML/MIN/1.73 SQ M.SNHICZOFO69.9 mL/min/1.73m*2Low>60.0UnPaulding County HospitalComment on above:Result Comment: [facility]???s estimated glomerular filtration rate (eGFR) will [...] anyone group of individuals.Performed By: #### [id number] ####[facility] ([facility])[address] [place], [place] [address]Bzofctp [Mass/Vol]156 mg/cQOpop43-177XigajvpyuhPaulding County HospitalComment on above:Performed By: #### [id number] ####[facility] ([facility])[address] [place], [place] [address]Iqqdsvozc [Moles/Vol]3.6 mmol/L Normal3.5-5.1UnPaulding County HospitalComment on above:Performed By: #### [id number] ####[facility] ([facility])[address] [place] [address] Protein [Mass/Vol]6.2 g/dLNormal6.0-8.3[facility] Comment on above:Performed By: #### [id number] ####[facility] ([facility])[address] [place], [place] [address]Xpkoki [Moles/Vol]139 mmol/IBikcgw807-286RstqrsxheaPaulding County HospitalComment on above:Performed By: #### [id number] ####[facility] ([facility])[address] [place], [place] [address]Wlud nitrogen [Mass/Vol] 28 mg/dLHigh7-25UnPaulding County HospitalComment on above:Performed By: #### [id number] ####[facility] ([facility])[address] [place] [address] UREA NITROGEN/CREATININE (MASS RATIO) IN SER/PLAS19.3NormalUniversMarietta Osteopathic ClinicComment on above:Performed By: #### [id number] ####[facility] ([facility])[address] [place], [place] [address]JCWYAEDsh 79-30-7315BQYRHKKrkathlwcl planning: to return to [facility] Patient came to this admission from [facility]. - Occupational Therapy Eval noting Patient is able to return to prior living environment - Physical Therapy Eval noting Patient is able to return to prior living environment - LDAs tab not listing any open wounds or closed skin issues - I/O wVital flowsheet noting Patient on Room Air at this tie - PC to [facility]; Erin confirmed Patient is from their facility, specifically their Long Term unit (not ECF or WAN) discharge barriers: [] no insurance precert needed for any placement from this admission [] [facility] signed by Azeem Green MD at 05/10/2025 7:15 PM I personally saw and evaluated the patient on rounds with the medical staff services coordinator and agree with his assessment and plan as documented in the progress note from today Cardiology Consult Note Reason for Consult: Acute on chronic HFpEF, hypertensive urgency HPI: Nadir Beth is a 85 y.o. male with past medical history of A-fib on Xarelto, hypertension, HFpEF, CKD, recent history of CVA 4 months back, renal artery stenosis transferred from [facility] for acute on chronic heart failure. Patient had history of stroke 4 months back and was in rehab patient has been having progressive lower extremity edema for few days. Patient was advised to increase his Lasix from 20 to 40 mg and blood work was done which showed BNP 6214 and was advised to go to the ED. In [place] [facility] chest x-ray showed pulmonary vascular congestion [...] Abdomen is flat. Palp (more content not included)...NormalTriHealth Bethesda North Hospital CONSULTAdult Nutrition Assessment: Name: Nadir Beth [...] of Nutrition and Dietetics (AND) and the [place] Society of Enteral and Parenteral Nutrition (ASPEN). [...] To reach the Clinical Dietitian, please utilize Hstry chat Wednesday-Wednesday from 8AM-4PM or call extension [phone]. For weekends (Wednesday-Wednesday) and hols, the Clinical Dietitian can be reached via pager ([phone]) from 9AM-3PM. The Clinical Nutrition Department is unable to respond to Hstry chat messages on Sundays and . [1] History reviewed. No pertinent past medical history. [2] Allergies Allergen Reactions Aminolevulinic Acid Hcl Unknown Iodinated Contrast Media Unknown Nitroglycerin Other hypotension Simvastatin UnknownNormalUniversity Cleveland ClinicDocumentationon [id number] Nadir Beth 1940 Date Provider Department [place] 05/10/202506372-AEVJNQSUSANA KAUFFMAN [facility] INT MED Comprehensiv Family History Problem Relation Age of Onset Coronary artery disease Father Family Status - Relation Status Age at Mother Father DeceasedNormalUniversMarietta Osteopathic ClinicHIGH SENSITIVITY TROPONIN Ion 58-94-1913FB TROPONIN I (NG/L)26 ng/LHigh<20UnPaulding County HospitalComment on above:Performed By: #### [id number] ####[facility] (BEAKER)[address] [place], [place] [address]WV TROPONIN I (NG/L)21 ng/LHigh<20 [facility]hesda North HospitalComment on above:Performed By: #### [id number] ####[facility] (BEAKER)[address] [place], [place] [address]DJ TROPONIN I (NG/L)21 ng/LHigh<20UnPaulding County HospitalComment on above: Performed By: #### [id number] ####[facility] (BEAKER)[address] [place], [place] [address]EPun 45-10-1918ZR Attestation signed by Azeem Green MD at 05/10/2025 7:15 PM I personally saw and evaluated the patient on rounds with the medical staff services coordinator and agree with his assessment and plan as documented in the progress note from today Cardiology Consult Note Reason for Consult: Acute on chronic HFpEF, hypertensive urgency HPI: Nadir Beth is a 85 y.o. male with past medical history of A-fib on Xarelto, hypertension, HFpEF, CKD, recent history of CVA 4 months back, renal artery stenosis transferred from [facility] for acute on chronic heart failure. Patient had history of stroke 4 months back and was in rehab patient has been having progressive lower extremity edema for few days. Patient was advised to increase his Lasix from 20 to 40 mg and blood work was done which showed BNP 6214 and was advised to go to the ED. In [place] ED chest x-ray showed pulmonary vascular congestion [...] Abdomen is flat. Palp (more content not included)...NormalTriHealth Bethesda North Hospital MAGNESIUMon 10-21-7726Uzwdtpnhm [Mass/Vol]2.0 mg/dLNormal1.9-2.7UnPaulding County HospitalComment on above:Performed By: #### [id number] ####[facility] ([facility])[address] [place] [address]MDAEKCAD COUNTon 44-34-7534BCVHSBQGG (10*3/UL) IN BLOOD AUTOMATED SBGWQ517 10*3/gRClpsgv715-951 [facility] North HospitalComment on above:Performed By: #### [id number] #### [facility] ([facility]) [address] [place] [address]WPGK GLUCOSE METER UNSOLICITED RESULTSon 49-33-6891Wyswcyk [Mass/Vol]237 mg/uEIkcf21-559EfdqwpujvmPaulding County HospitalComment on above:Order Comment: Waived Testing in the ED is performed under the ED CLIA certificate #[id number].Result Comment: msjxrbu34Iipdwpgif By: #### [id number] #### [facility] ([facility]) [address] [place] [address]Ixnxjhm [Mass/Vol]159 mg/wZVlsf43-814HuweaefnysPaulding County HospitalComment on above:Order Comment: Waived Testing in the ED is performed under the ED CLIA certificate #[id number].Result Comment: isegura2 Performed By: #### [id number] #### [facility] ([facility]) [address] [place] [address]Rcekauz [Mass/Vol]172 mg/tDKsqt09-507HdqpkoiulyPaulding County HospitalComment on above:Order Comment: Waived Testing in the ED is performed under the ED CLIA certificate #[id number].Result Comment: isegura2 Performed By: #### [id number] ####[facility] ([facility])[address] [place] [address]Dsirbwk [Mass/Vol]186 mg/vRYldz14-598JukkatcbzxPaulding County HospitalComment on above:Order Comment: Waived Testing in the ED is performed under the ED CLIA certificate #[id number].Result Comment: isegura2 Performed By: #### [id number] #### [facility] (BEAKER) [address] [place], [place] [address]NEX8 REFLEX TO FT4on 23-60-8017YHNIIBTTZLU (MIU/L) IN SER/PLAS BY DETECTION LIMIT <= 0.05 MIU/L1.34 mIU/LNormal0.34-5.60UnPaulding County HospitalComment on above:Performed By: #### [id number] #### [facility] ([facility]) [address] [address]ri 42-23-678037Dmarpyg is rescheduled for 07/11.Normal [facility]36on 19-76-433923Pxh to reschedule patients nephrology appointment. Advised at this time, the appointment will be cancelled and to call back to reschedule.NormalUnPaulding County HospitalTelephoneon [id number] Nadir Beth 1940 M Date Provider Department Center 05/04/2025 RUTHIE OWEN [facility] NEPHRO Comprehensiv Family History Problem Relation Age of Onset Coronary artery disease Father Family Status - Relation Status Age at Mother Father DeceasedNormalUniversMarietta Osteopathic ClinicCoding Queryon 41-72-5033Whneqs QueryCoding Query From: Alberto OTERO, Lay To: Anai UIRARTE; Cc: Ginny Talamantes; Sent: 04/30/2025 07:31:14 EDT ! Subject: Coding Query Due Date/Time: 05/01/2025 07:30:00 EDT Caller Name: NADIR BETH Joy; Caller Number: Sergio , M Documentation in the medical record indicates this patient has been admitted with or diagnosed as having: Altered mental status The following is also documented in the medical record: dc blbjysa-38-amzn-old male who was admitted to the hospital [...] minimal acute/subacute ischemic lacunarinfarcts. likely embolicNormalFisher Medstar Harbor HospitalCoding QueryCoding Query From: Lay Dominguez RN [...] Caller Number: H , M CKD stage 3BNoSelect Medical OhioHealth Rehabilitation HospitalCoding QueryCoding Query From: Lay Dominguez RN [...] to left lower leg limited to skin [facility] HospitalOffice Visiton 44-81-3345Mstpjf-up [id number] Nadir Beth 1940 M Date Provider Department Center 04/30/2025 CLARIBEL VILLALOBOS MILKA Dominguez [facility] Family History Problem Relation Age of Onset Coronary artery disease Father Family Status - Relation Status Age at Mother Father Level of Service:[address] [place] OFFICE/OUTPATIENT ESTABLISHED MOD MDM 30 [facility]36on [id number] with patient's daughter and scheduled him an apt to see Dr. Cisneros on 05/03/2025.[facility]36on 28-34-043023Rygbvtg's daughter called to make you aware he had a stroke and was admitted to [facility]. He will be discharged today to SNF. He's scheduled for heart cath with you 05/10. Daughter wants to know if you still want him to have this or if he needs pushed out? Do you need to see him prior to this? Please advise. Thanks.[facility] Health Willard HospitalBMPon 29-17-1174Lxsas gap [Moles/Vol]12 mmol/LNormal6-16[facility], IncComment on above: Performed By: #### [id number] #### [facility] Laboratory [address], [place] [address]UHR/Creat Ratio22 No DopeqPgza20-23GotztrSelect Medical Specialty Hospital - [facility], Inc Comment on above:Performed By: #### [id number] #### [facility] Laboratory [address], [place] [address]Hsfdywk [Mass/Vol]8.7 mg/dLLow8.9-11.1FMagruder HospitalComment on above:Performed By: #### [id number] #### [facility] Laboratory [address], [place] [address]Xeolmcdy [Moles/Vol]102 mmol/HBzrspw104-451KrpewuSelect Medical Specialty Hospital - [facility], IncComment on above:Performed By: #### [id number] #### [facility] Laboratory [address], [place] [address]HS5 [Moles/Vol]27 mmol/ENteifl48-55GjbqpbSelect Medical Specialty Hospital [facility], Inc Comment on above:Performed By: #### [id number] #### [facility] Laboratory [address], [place] [address]Efmjeanuhm [Mass/Vol]1.6 mg/dLHigh0.5-1.3FMagruder HospitalComment on above:Performed By: #### [id number] #### [facility] Laboratory [address], [place] [address]Yrslmdl [Mass/Vol]233 mg/bTBooz32-887TzjqizSelect Medical Specialty Hospital - [facility], IncComment on above:Performed By: #### [id number] #### [facility] Laboratory [address], [place] [address]Ugpmrqfjt [Moles/Vol]4.3 mmol/LNormal3.5-5.3FMagruder HospitalComment on above:Performed By: #### [id number] #### [facility] Laboratory [address], [place] [address]Csjfin [Moles/Vol]137 mmol/LIpdxvt466-013VqhrdnSelect Medical Specialty Hospital - [facility], IncComment on above:Performed By: #### [id number] #### [facility] Laboratory [address], [place] [address]Biiu nitrogen [Mass/Vol]35 mg/dLHigh5-21[facility], IncComment on above:Performed By: #### [id number] #### [facility] Laboratory [address] [place] [address]VNK w/ Auto Diffon 19-77-3291Jlnpggrz Absolute0.0 E9/LNormal 0.0-0.2FMagruder HospitalComment on above:Performed By: #### [id number] #### [facility] Laboratory [address], [place] [address]Pyomrkrde/100 WBC (Bld)0.4 %Normal0.0-2.0[facility], IncComment on above:Performed By: #### [id number] #### [facility] Laboratory [address], [place] [address]Chg Absolute0.2 E9/LNormal0.0-0.5FMagruder Hospital Comment on above:Performed By: #### [id number] #### [facility] Laboratory [address], [place] [address]Ltjilataode/100 WBC (Bld)2.3 %Normal0.0-8.0[facility], IncComment on above:Performed By: #### [id number] #### [facility] Laboratory [address], [place] [address]Vlyffrhpdsz distribution width (RBC) [Ratio]20.0 %High10.9-14.2 [facility], IncComment on above:Performed By: #### [id number] #### [facility] Laboratory [address], [place] [address]Zrtjesegeo (Bld) [Volume fraction]33.0 %Low37.7-49.0[facility], IncComment on above:Performed By: #### [id number] #### [facility] Laboratory [address], [place] [address]Gwjamfukbq (Bld) [Mass/Vol]10.6 g/dLLow13.5-17.5FMagruder HospitalComment on above:Performed By: #### [id number] #### [facility] Laboratory [address], [place] [address]Btepn Absolute0.7 E9/LLow1.0-4.0[facility] Comment on above:Performed By: #### [id number] #### [facility] Laboratory [address], [place] [address]Zucowhvdssm/100 WBC (Bld)9.6 %Low14.0-50.0[facility], IncComment on above:Performed By: #### [id number] #### [facility] Laboratory [address], [place] [address]SGA (RBC) [Entitic mass]27.3 lxYzzuei95.0-34.0[facility], IncComment on above:Performed By: #### [id number] #### [facility] Laboratory [address], [place] [address]IRLK (RBC) [Mass/Vol]32.2 g/cYHpkeug24.4-36.0[facility], IncComment on above:Performed By: #### [id number] #### [facility] Laboratory [address], [place] [address]PTM (RBC) [Entitic vol]84.6 hYYgtzaz65.0-100.0[facility], IncComment on above:Performed By: #### [id number] #### [facility] Laboratory [address], [place] [address]Vmjj Absolute0.9 E9/LNormal0.2-1.0[facility] Comment on above:Performed By: #### [id number] #### [facility] Laboratory [address], [place] [address]Uhqkycbwi/100 WBC (Bld)11.6 %Normal4.0-14.0[facility], IncComment on above:Performed By: #### [id number] #### [facility] Laboratory [address] [place] [address]Yymrzf Absolute5.7 E9/LNormal2.0-7.5FMagruder Hospital Comment on above:Performed By: #### [id number] #### [facility] Laboratory [address] [place] [address]Kfcswe Auto76.1 %High36.0-75.0[facility] Comment on above:Performed By: #### [id number] #### [facility] Laboratory [address], [place] [address]Wqiticmk870.0 E9/CVrqskg642.0-500.0[facility] Comment on above:Performed By: #### [id number] #### [facility] Laboratory [address], [place] [address]Stdcbgyf mean volume (Bld) [Entitic vol]9.0 fLNormal6.4-10.8 [facility], IncComment on above:Performed By: #### [id number] #### [facility] Laboratory [address], [place] [address]AJK7.9 E12/LLow4.3-5.9[facility], IncComment on above:Performed By: #### [id number] #### [facility] Laboratory [address], [place] [address]URE3.5 E9/LNormal4.0-11.0[facility], IncComment on above:Performed By: #### [id number] #### [facility] Laboratory [address], [place] [address]MTDPBIDEGDwwkvoz By: Lab Amena on 26-56-3899Zxvlvur [Mass/Vol]204 mg/jNEpee63 - 99 mg/dLFT POC SubsectionComment on above:Result Comment: Notified RN/MDPOC Device [id number] 1Invalid Interpretation Code [facility] POC SubsectionPOC UsernameVRAHEEL HANNAHInvalid Interpretation CodeFTMC POC SubsectionSodium [Moles/Vol]056383613 mmol/LInvalid Interpretation CodeFTMC POC SubsectionGlucose [Mass/Vol]212 mg/sPPpnk42 - 99 mg/dLFTMC POC Subsection Comment on above:Result Comment: Notified RN/MDPOC Device [id number] 1 Invalid Interpretation CodeFTMC POC SubsectionPOC UsernameVOLLSHAR, HANNAHInvalid Interpretation CodeFTMC POC SubsectionSodium [Moles/Vol]684711693 mmol/LInvalid Interpretation CodeFTMC POC SubsectionCHEMISTRYOrdered By: SYSTEM SYSTEM on 55-66-9439Cimjj gap [Moles/Vol]12 mmol/LNormal6 - 16 mEq/LRemisol ChemCalcium [Mass/Vol]8.7 mg/dLLow8.9 - 11.1 mg/dLRemisol ChemChloride [Moles/Vol]102 mmol/L Bzyjwq890 - 111 mmol/LRemisol ChemCO2 [Moles/Vol]27 mmol/ZMzhtqj00 - 31 mmol/L Remisol ChemCreatinine [Mass/Vol]1.6 mg/dLHigh0.5 - 1.3 mg/dLRemisol Chem GFR/1.73 sq M.predicted MDRD (S/P/Bld) [Vol rate/Area]42 mL/min/1.73 m2Low >=59mL/min/1.73 q7Qftufco ChemGlucose [Mass/Vol]233 mg/tZEtln68 - 199 mg/dL Remisol ChemPotassium [Moles/Vol]4.3 mmol/LNormal3.5 - 5.3 mmol/LRemisol Chem Sodium [Moles/Vol]137 mmol/VIlfogi837 - 145 mmol/LRemisol ChemUrea nitrogen [Mass/Vol]35 mg/dLHigh5 - 21 mg/dLRemisol ChemUrea nitrogen/Creatinine [Mass ratio]22 mg/xxIqvk75 - 20Remisol ChemCapillary Glucose POCon 52-55-1430Boeftrm [Mass/Vol]204 mg/lCCkkz61-11JunyogSelect Medical Specialty Hospital - Board[facility], IncComment on above:Result Comment: Notified RN/MDPerformed By: #### [id number] ####[facility] [address] [place], [place] [address]Qekzsrt [Mass/Vol]212 mg/dL Vily07-41CwmtddSelect Medical Specialty Hospital - Board[facility], IncComment on above:Result Comment: Notified RN/MDPerformed By: #### [id number] #### [facility] Laboratory [address] [place], [place] [address]Sfvshvmit Note-Nursingon 43-93-3439Kfqsrdwdz Note-Nursing Discharge Note-Nursing NADIR BETH :1940 Visit Date:04/14/2025 Inpatient Discharge Instructions Your Care Team Admitting Physician - Layne VERDUGO DO Consulting Physician - Clover Walker MD [facility] Wound, XXXX Reason for Your Visit AMS [...] LU OLMEDO PA-C Where: [facility] [address] [address]- New Follow Up Appointments after Discharge Follow Up with Neurology When: Within 2 to 4 weeks Comments: Call for followup appointment Where: [phone] Medications What How Much When Why Instructions [...] Mouth Every day 04/19/2025 (more content not included)...[facility]wiler Memorial HospitalHEMATOLOGYOrdered By: SYSTEM SYSTEM on 70-64-1481Xaiaptrea/100 WBC (Bld)0.4 %Normal0.0 - 2.0 % Remisol [...] 50.0 % Remisol HemeMCH (RBC) [Entitic mass]27.3 aoXjqnyo39.0 - 34.0 pgRemisol HemeMCHC (RBC) [Mass/Vol]32.2 g/vZRfbigj98.4 - 36.0 gm/dLRemisol HemeMCV (RBC) [Entitic vol]84.6 cXHqlbjw84.0 - 100.0 fLRemisol HemeMonocytes (Bld) [#/Vol]0.9 E9/L Normal0.2 - 1.0 E9/LRemisol HemeMonocytes/100 WBC (Bld)11.6 %Normal4.0 - 14.0 % Remisol HemeNeutrophils (Bld) [#/Vol]5.7 E9/LNormal2.0 - 7.5 E9/LRemisol Heme Neutrophils/100 WBC (Bld)76.1 %High36.0 - 75.0 %Remisol HemePlatelet mean volume (Bld) [Entitic vol]9.0 fLNormal6.4 - 10.8 fLRemisol HemePlatelets (Bld) [#/Vol] 234.0 E9/FZwesdf420.0 - 500.0 E9/LRemisol HemeRBC (Bld) [#/Vol]3.9 E12/LLow4.3 - 5.9 E12/LRemisol HemeWBC corrected for nucl RBC Auto (Bld) [#/Vol]7.5 E9/L Normal4.0 - 11.0 E9/LRemisol HemeInpatient Clinical Summaryon 04-18-2025 Inpatient Clinical SummaryInpatient Clinical Summary [address] [address] Clinical Summary Person Information: Name: NADIR BETH Age: 85 Years : 1940 Sex: Male PCP: Van Youssef MD Marital Status: Race: White Ethnicity: Non- or Language: Comoran Visit Id: Visit Reason: Altered mental status; Headache; Potential stroke; stroke Speciality: Acuity: Enc Type: Inpatient Med Service: Medical Arrival: 04/14/2025 16:53:36 Discharge: Dispo Type: Admitted as IP to this Hosp Address: [address] [place] [id number] Provider Notes: Diagnosis: 1:CVA (cerebrovascular accident); 2:Atrial [...] VERDUGO DO Consulting Physician: Clover Walker MD; [facility] Wound, XXXX Referring Physician: Follow up: With: Address: When: Neurology [phone] Within 2 to 4 weeks Comments: Call for followup appointment Type Location Start Finish [facility] Office Visit [facility] NAV Dominguez 06/11/2025 11:40 AM 06/11/2025 12:00 PM Confirmed Patient Education Information: Type 2 Diabetes Mellitus, Diagnosis, Adult; Atrial Fibrillation; Core Measures: Stroke (Cerebrovascular Accident) [facility], (Custom)Detwiler Memorial HospitalInpatient Patient Summaryon 46-49-3461Usxzqfphr Patient SummaryInpatient Patient Summary [place] [address] Patient Discharge Instructions PERSON INFORMATION Name: NADIR [...] None Follow up: With: Address: When: Neurology [phone] Within 2 to 4 weeks Comments: Call for followup appointment In the event that this physician does not participate in your insurance network, please consult with your insurance company to find a nearby participating provider. Type Location Start [facility] Office Visit [facility] EU Alberto 06/11/2025 11:40 AM 06/11/2025 12:00 [...] Dose: Next Dose: omepra (more content not included)...[facility] Interdisciplinary Note - Case Manageron 89-23-9129Luyepfgmcekkrkwej Note - Case ManagerInterdisciplinary Note - Label Cutter Patient awake and alert eating breakfast in bed. and dtr at bedside. [facility], patient has completed 3MN and can dc when medically clear. and daughterwill transport at sd. Patient will dc today. Denies any further concerns.[facility] Memorial HospitalComment on above:Result Comment: Electronically Signed By: Jihan De Oliveira\.br\Date and Time Signed: 04/18/25 09:36 EDTeGFRon 36-89-5037sLLV06 mL/min/1.73 m2Low>=59 [facility], IncComment on above:Performed By: #### [id number] #### [facility] Laboratory [address], [place] [address]MQStf 00-57-1274Rleki gap [Moles/Vol]15 mmol/LNormal6-16[facility], IncComment on above:Performed By: #### [id number] #### [facility] Laboratory [address], [place] [address]JAQ/Creat Ratio21 No LgzrlUiqm61-31JadcwpSelect Medical Specialty Hospital - [facility], Inc Comment on above:Performed By: #### [id number] #### [facility] Laboratory [address], [place] [address]Adkndkm [Mass/Vol]8.8 mg/dLLow8.9-11.1FMagruder HospitalComment on above:Performed By: #### [id number] #### [facility] Laboratory [address], [place] [address]Xstjxept [Moles/Vol]104 mmol/UPpjulh556-630WocxjnSelect Medical Specialty Hospital - Board[facility], IncComment on above:Performed By: #### [id number] #### [facility] Laboratory [address], [place] [address]UV8 [Moles/Vol]26 mmol/ASelnut50-77BbzgepSelect Medical Specialty Hospital - [facility], Inc Comment on above:Performed By: #### [id number] #### [facility] Laboratory [address], [place] [address]Jwuwnyjkxz [Mass/Vol]1.6 mg/dLHigh0.5-1.3FMagruder HospitalComment on above:Performed By: #### [id number] #### [facility] Laboratory [address], [place] [address]Diwohqo [Mass/Vol]222 mg/eRDxsm32-466IvulbnSelect Medical Specialty Hospital - Boardman, IncComment on above:Performed By: #### [id number] #### [facility] Laboratory [address], [place] [address]Wdsfxvqde [Moles/Vol]4.1 mmol/LNormal3.5-5.3FMagruder HospitalComment on above:Performed By: #### [id number] #### [facility] Laboratory [address], [place] [address]Wfzfmf [Moles/Vol]141 mmol/VOulgfp088-780PgxfhwSelect Medical Specialty Hospital - Boardman, IncComment on above:Performed By: #### [id number] #### [facility] Laboratory [address], [place] [address]Tlel nitrogen [Mass/Vol]34 mg/dLHigh5-21[facility], IncComment on above:Performed By: #### [id number] #### [facility] Laboratory [address], [place] [address]LLN w/ Auto Diffon 74-16-4774Gvnhdzpx Absolute0.1 E9/LNormal 0.0-0.2FMagruder HospitalComment on above:Performed By: #### [id number] #### [facility] Laboratory [address], [place] [address]Joplzmpmb/100 WBC (Bld)0.6 %Normal0.0-2.0[facility], IncComment on above:Performed By: #### [id number] #### [facility] Laboratory [address], [place] [address]Upi Absolute0.1 E9/LNormal0.0-0.5FMagruder Hospital Comment on above:Performed By: #### [id number] #### [facility] Laboratory [address] [place] [address]Dankqnntauw/100 WBC (Bld)0.6 %Normal0.0-8.0[facility], IncComment on above:Performed By: #### [id number] #### [facility] Laboratory [address] [place] [address]Kduagzgbklo distribution width (RBC) [Ratio]20.3 %High10.9-14.2 [facility], IncComment on above:Performed By: #### [id number] #### [facility] Laboratory [address] [place] [address]Bhngqdzpaq (Bld) [Volume fraction]34.9 %Low37.7-49.0[facility], IncComment on above:Performed By: #### [id number] #### [facility] Laboratory [address] [place] [address]Pomvbxlgvf (Bld) [Mass/Vol]11.2 g/dLLow13.5-17.5FMagruder HospitalComment on above:Performed By: #### [id number] #### [facility] Laboratory [address] [place] [address]Rgwsu Absolute0.7 E9/LLow1.0-4.0[facility] Comment on above:Performed By: #### [id number] #### [facility] Laboratory [address] [place] [address] 15771Qwarllqiljs/100 WBC (Bld)7.1 %Low14.0-50.0[facility], IncComment on above:Performed By: #### [id number] #### [facility] Laboratory [address] [place] [address] 00091BCG (RBC) [Entitic mass]27.5 fmMwdzpa02.0-34.0[facility], IncComment on above:Performed By: #### [id number] #### [facility] Laboratory [address] [place] [address] 36148SXVE (RBC) [Mass/Vol]32.2 g/zAHyajpk46.4-36.0[facility], IncComment on above:Performed By: #### [id number] #### [facility] Laboratory [address] [place] [address] 17454BAC (RBC) [Entitic vol]85.4 oALfbhlp99.0-100.0[facility], IncComment on above:Performed By: #### [id number] #### [facility] Laboratory [address] [place] [address] 52667Mitd Absolute1.4 E9/LHigh0.2-1.0[facility] Comment on above:Performed By: #### [id number] #### [facility] Laboratory [address] [place] [address] 85937Riybitgua/100 WBC (Bld)13.7 %Normal4.0-14.0[facility], IncComment on above:Performed By: #### [id number] #### [facility] Laboratory [address] [place] [address] 82653Hpxrwe Absolute7.7 E9/LHigh2.0-7.5FMagruder Hospital Comment on above:Performed By: #### [id number] #### [facility] Laboratory [address] [place] [address] 86817Viuyxj Auto78.0 %High36.0-75.0[facility] Comment on above:Performed By: #### [id number] #### [facility] Laboratory [address], [place] [address]Dpiunfkz811.0 E9/HZfhsno328.0-500.0[facility] Comment on above:Performed By: #### [id number] #### [facility] Laboratory [address], [place] [address]Odvpgurs mean volume (Bld) [Entitic vol]9.1 fLNormal6.4-10.8 [facility], IncComment on above:Performed By: #### [id number] #### [facility] Laboratory [address], [place] [address]LGM6.1 E12/LLow4.3-5.9[facility], IncComment on above:Performed By: #### [id number] #### [facility] Laboratory [address] [place] [address] 05767YUZ4.9 E9/LNormal4.0-11.0[facility], IncComment on above:Performed By: #### [id number] #### [facility] Laboratory [address], [place] [address]GXWNQVXGXDiffxfw By: Lab ROPUser on 47-57-0983Ukfkoog [Mass/Vol]203 mg/qJUsby46 - 99 mg/dLCORDE[facility] POC SubsectionComment on above:Result Comment: Notified RN/MDPHANY Device [id number] Interpretation Code [facility] POC SubsectionPOC UsernameWYLIE, ARIANNAInvalid Interpretation CodeCOR[facility] SubsectionSodium [Moles/Vol][id number] mmol/LInvalid Interpretation CodeCOR[facility] SubsectionCHEMISTRYOrdered By: SYSTEM SYSTEM on 61-85-1238Tuxec gap [Moles/Vol] 15 mmol/LNormal6 - 16 mEq/LRemisol ChemCalcium [Mass/Vol]8.8 mg/dLLow8.9 - 11.1 mg/dLRemisol ChemChloride [Moles/Vol]104 mmol/SHaulvk102 - 111 mmol/LRemisol ChemCO2 [Moles/Vol]26 mmol/WDpgmar82 - 31 mmol/LRemisol ChemCreatinine [Mass/Vol]1.6 mg/dLHigh0.5 - 1.3 mg/dLRemisol ChemGFR/1.73 sq M.predicted MDRD (S/P/Bld) [Vol rate/Area]42 mL/min/1.73 m2Low>=59mL/min/1.73 p7Leexvbb Chem Glucose [Mass/Vol]222 mg/hVVwoe69 - 199 mg/dLRemisol ChemPotassium [Moles/Vol] 4.1 mmol/LNormal3.5 - 5.3 mmol/LRemisol ChemSodium [Moles/Vol]141 mmol/LNormal 135 - 145 mmol/LRemisol ChemUrea nitrogen [Mass/Vol]34 mg/dLHigh5 - 21 mg/dL Remisol ChemUrea nitrogen/Creatinine [Mass ratio]21 mg/mjIxwp47 - 20Remisol Chem Capillary Glucose POCon 40-76-0848Ntucxxq [Mass/Vol]203 mg/sOUsal89-90OetuwzSelect Medical Specialty Hospital [facility], IncComment on above:Result Comment: Notified RN/MDPerformed By: #### [id number] #### [facility] Laboratory [address], [place] [address]Oijtfpz [Mass/Vol]240 mg/gGEqcv02-35MbegnbSelect [facility]ty [facility] Comment on above:Result Comment: Notified RN/MDPerformed By: #### [id number] #### [facility] Laboratory [address], [place] [address]Weobzok [Mass/Vol]304 mg/sTWszq79-19NcwtgfSelect Medical Specialty [facility] Comment on above:Result Comment: Notified RN/MDPerformed By: #### [id number] #### [facility] Laboratory [address], [place] [address]Skchyxi [Mass/Vol]191 mg/rFRtap13-07SpendhSelect Medical Specialty [facility] Comment on above:Result Comment: Notified RN/MDPerformed By: #### [id number] #### [facility] Laboratory [address], [place] [address]Slpafx Queryon 11-73-1117Rpuwtl QueryCoding Query From: Tanesha Mcdowell RN To: [...] desired or expected. Thank you!tanesha [id number] From: PEPE PINTOELENITAAnai To: Tanesha Mcdowell RN; Sent: 04/17/2025 15:51:38 EDT Subject: RE: Coding Query Caller Name: NADIR BETH; Caller Number: Sergio , M ]Acute on Chronic Diastolic (Preserved EF) Heart FailureNoSelect Medical [facility] Rehabilitation HospitalCoding QueryCoding Query From: Tanesha Mcdowell RN [...] , M __]Demand Ischemia (without a myocardial infarction)[facility] HospitalHEMATOLOGYOrdered By: SYSTEM SYSTEM on 12-76-1554Fjquvfshk/100 WBC (Bld) 0.6 %Normal0.0 - 2.0 %Remisol [...] 27.0 - 34.0 pgRemisol HemeMCHC (RBC) [Mass/Vol]32.2 g/yZCswqay85.4 - 36.0 gm/dL Remisol HemeMCV (RBC) [Entitic vol]85.4 fUXzzgnn37.0 - 100.0 fLRemisol Heme Monocytes (Bld) [#/Vol]1.4 E9/LHigh0.2 - 1.0 E9/LRemisol HemeMonocytes/100 WBC (Bld)13.7 %Normal4.0 - 14.0 %Remisol HemeNeutrophils (Bld) [#/Vol]7.7 E9/LHigh 2.0 - 7.5 E9/LRemisol HemeNeutrophils/100 WBC (Bld)78.0 %High36.0 - 75.0 % Remisol HemePlatelet mean volume (Bld) [Entitic vol]9.1 fLNormal6.4 - 10.8 fL Remisol HemePlatelets (Bld) [#/Vol]237.0 E9/QZhwyzr901.0 - 500.0 E9/LRemisol HemeRBC (Bld) [#/Vol]4.1 E12/LLow4.3 - 5.9 E12/LRemisol HemeWBC corrected for nucl RBC Auto (Bld) [#/Vol]9.9 E9/LNormal4.0 - 11.0 E9/LRemisol Heme Interdisciplinary Note - Case Manageron 86-50-8754Qdtthkcposjtjpwqe Note - Case ManagerInterdisciplinary Note - Label Cutter Patient awake and alert eating breakfast in bed. and dtr at bedside. [facility], patient has completed 3MN and can dc when medically clear. and dtr unsure if they will transport patient or if they will need transport set up. Dtr states she would like to see how patient does with PT first. Denies any further concerns. Family will transport patient to [facility] HospitalComment on above:Result Comment: Electronically Signed By: Jihan De Oliveira\.br\Date and Time Signed: 04/17/25 10:54 EDTInterdisciplinary Note - Case ManagerInterdisciplinary Note - Label Cutter Patient awake and alert eating breakfast in bed. and dtr at bedside. [facility], patient has completed 3MN and can dc when medically clear. and dtr unsure if they will transport patient or if they will need transport set up. Dtr states she would like to see how patient does with PT first. Denies any further concerns.[facility] HospitalComment on above:Result Comment: Electronically Signed By: Jihan De Oliveira\.br\Date and Time Signed: 04/17/25 08:41 EDTRPR with Conf Rfxon 58-55-2641LXJ QualNon-ReactiveInvalid Interpretation CodeNon ReactiveSelect Medical Specialty [facility], IncComment on above:Result Comment: Performed at: [facility] [address] [id number] PhD Huan VyasPerformed By: #### [id number] #### [facility] Laboratory [address], [place] [address]aZAYey 35-42-3874kEYN57 mL/min/1.73 m2Low>=59[facility], IncComment on above:Performed By: #### [id number] #### [facility] Laboratory [address], [place] [address]CEZan 76-63-6479Obvhd gap [Moles/Vol]18 mmol/LHigh6-16[facility] IncComment on above:Performed By: #### [id number] #### [facility] Laboratory [address], [place] [address]EFU/Creat Ratio19 No YkllrNrrqbf26-30QsrnliSelect Medical Specialty Hospital - [facility], IncComment on above:Performed By: #### [id number] #### [facility] Laboratory [address], [place] [address]Uipuyct [Mass/Vol]9.2 mg/dLNormal8.9-11.1FMagruder HospitalComment on above:Performed By: #### [id number] #### [facility] Laboratory [address], [place] [address]Nrbdrfsv [Moles/Vol]103 mmol/PYmbygx368-793OorllpSelect Medical Specialty Hospital - [facility], IncComment on above:Performed By: #### [id number] #### [facility] Laboratory [address], [place] [address]LY9 [Moles/Vol]24 mmol/HCniaas10-83IsdfhfSelect Medical Specialty Hospital [facility] Comment on above:Performed By: #### [id number] #### [facility] Laboratory [address], [place] [address]Azpjpwcqox [Mass/Vol]1.7 mg/dLHigh0.5-1.3FMagruder HospitalComment on above:Performed By: #### [id number] #### [facility] Laboratory [address], [place] [address]Dpsdyip [Mass/Vol]212 mg/qAAqme94-697EfwqnoSelect Medical Specialty Hospital [facility], IncComment on above:Performed By: #### [id number] #### [facility] Laboratory [address], [place] [address]Ydrdansmh [Moles/Vol]3.9 mmol/LNormal3.5-5.3FMagruder HospitalComment on above:Performed By: #### [id number] #### [facility] Laboratory [address], [place] [address]Uljlkl [Moles/Vol]141 mmol/HKxlrcr463-386UkdqtdSelect Medical Specialty Hospital - [facility], IncComment on above:Performed By: #### [id number] #### [facility] Laboratory [address], [place] [address]Afal nitrogen [Mass/Vol]33 mg/dLHigh5-21[facility], IncComment on above:Performed By: #### [id number] #### [facility] Laboratory [address] [place] [address]ITI w/ Auto Diffon 44-32-0873Agqgqtrt Absolute0.0 E9/LNormal 0.0-0.2FMagruder HospitalComment on above:Performed By: #### [id number] #### [facility] Laboratory [address] [place] [address]Gvabtrvfq/100 WBC (Bld)0.1 %Normal0.0-2.0[facility], IncComment on above:Performed By: #### [id number] #### [facility] Laboratory [address] [place] [address] 25[address]Trm Absolute0.0 E9/LNormal0.0-0.5FMagruder Hospital Comment on above:Performed By: #### [id number] #### [facility] Laboratory [address] [place] [address]Nvgaiflsteh/100 WBC (Bld)0.2 %Normal0.0-8.0[facility] IncComment on above:Performed By: #### [id number] #### [facility] Laboratory [address] [place] [address]694Mxtvqamloaa distribution width (RBC) [Ratio]20.4 %High10.9-14.2 [facility] IncComment on above:Performed By: #### [id number] #### [facility] Laboratory [address], [place] [address]Qkrieielsk (Bld) [Volume fraction]37.2 %Low37.7-49.0[facility], IncComment on above:Performed By: #### [id number] #### [facility] Laboratory [address], [place] [address]Riabguksmk (Bld) [Mass/Vol]11.9 g/dLLow13.5-17.5FMagruder HospitalComment on above:Performed By: #### [id number] #### [facility] Laboratory [address] [place] [address] 515[address]Klabw Absolute0.7 E9/LLow1.0-4.0[facility] Comment on above:Performed By: #### [id number] #### [facility] Laboratory [address] [place] [address] 139[address]Tevifijrfzx/100 WBC (Bld)4.6 %Low14.0-50.0[facility] IncComment on above:Performed By: #### [id number] #### [facility] Laboratory [address] [place] [address] 45[address]RXI (RBC) [Entitic mass]27.2 frPkbout12.0-34.0[facility] IncComment on above:Performed By: #### [id number] #### [facility] Laboratory [address] [place] [address]IAQD (RBC) [Mass/Vol]32.0 g/nOVmufhw01.4-36.0[facility] IncComment on above:Performed By: #### [id number] #### [facility] Laboratory [address] [place] [address] 985[address]HSS (RBC) [Entitic vol]84.9 eYFijefa66.0-100.0[facility] IncComment on above:Performed By: #### [id number] #### [facility] Laboratory [address] [place] [address] 777[address]Gbuu Absolute1.6 E9/LHigh0.2-1.0[facility] Comment on above:Performed By: #### [id number] #### [facility] Laboratory [address] [place] [address] 23582Mvdjmxkln/100 WBC (Bld)10.8 %Normal4.0-14.0[facility] IncComment on above:Performed By: #### [id number] #### [facility] Laboratory [address] [place] [address]Rqryrg Vsotekxt16.3 E9/LHigh2.0-7.5FMagruder Hospital Comment on above:Performed By: #### [id number] #### [facility] Laboratory [address], [place] [address]Hwpgjy Auto84.3 %High36.0-75.0[facility] Comment on above:Performed By: #### [id number] #### [facility] Laboratory [address], [place] [address]Navriphz451.0 E9/FEoagpm142.0-500.0[facility] Comment on above:Performed By: #### [id number] #### [facility] Laboratory [address], [place] [address]Ouqtcvew mean volume (Bld) [Entitic vol]8.7 fLNormal6.4-10.8 [facility] IncComment on above:Performed By: #### [id number] #### [facility] Laboratory [address], [place] [address]FRH7.4 E12/LNormal4.3-5.9[facility], IncComment on above:Performed By: #### [id number] #### [facility] Laboratory [address], [place] [address]GSW69.6 E9/LHigh4.0-11.0[facility], IncComment on above:Performed By: #### [id number] #### [facility] Laboratory [address], [place] [address]NGTXGOODXLagipzc By: SYSTEM SYSTEM on 31-69-8856Jwfay gap [Moles/Vol]18 mmol/LHigh6 - 16 mEq/LRemisol ChemCalcium [Mass/Vol]9.2 mg/dL Normal8.9 - 11.1 mg/dLRemisol ChemChloride [Moles/Vol]103 mmol/GJuwnhp779 - 111 mmol/LRemisol ChemCO2 [Moles/Vol]24 mmol/NNfwtcj23 - 31 mmol/LRemisol Chem Creatinine [Mass/Vol]1.7 mg/dLHigh0.5 - 1.3 mg/dLRemisol ChemGFR/1.73 sq M.predicted MDRD (S/P/Bld) [Vol rate/Area]39 mL/min/1.73 m2Low>=59mL/min/1.73 m2 Remisol ChemGlucose [Mass/Vol]212 mg/dPToav86 - 199 mg/dLRemisol ChemMagnesium [Mass/Vol]2.4 mg/dLNormal1.3 - 2.4 mg/dLRemisol ChemPotassium [Moles/Vol]3.9 mmol/LNormal3.5 - 5.3 mmol/LRemisol ChemSodium [Moles/Vol]141 mmol/AJsincx991 - 145 mmol/LRemisol ChemUrea nitrogen [Mass/Vol]33 mg/dLHigh5 - 21 mg/dLRemisol ChemUrea nitrogen/Creatinine [Mass ratio]19 mg/bqTbgarx68 - 20Remisol Chem Capillary Glucose POCon 22-59-2539Wgacauf [Mass/Vol]265 mg/fNHmds59-61ZnkgkpSelect Medical Specialty [facility], IncComment on above:Result Comment: Notified RN/MDPerformed By: #### [id number] #### [facility] Laboratory [address], [place] [address]Pizoixb [Mass/Vol]246 mg/fUKhmn80-97QjulnvSelect Medical [facility]ty [facility] Comment on above:Result Comment: Notified RN/MDPerformed By: #### [id number] #### [facility] Laboratory [address], [place] [address]Ivsytsk [Mass/Vol]294 mg/xCTisr97-69TjatkdSelect Medical Specialty [facility] Comment on above:Result Comment: Notified RN/MDPerformed By: #### [id number] #### [facility] Laboratory [address], [place] [address]Kddlpcv [Mass/Vol]195 mg/uXKjyo85-47DnypesSelect Medical Specialty Hospital [facility] Comment on above:Result Comment: Notified RN/MDPerformed By: #### [id number] #### [facility] Laboratory [address], [place] [address]Dsfncl Queryon 86-29-5779Txdgfa QueryCoding Query From: Jeremias OTERO, Tanesha Marroquin To: PEPE PINTOELENITAAnai; Sent: 04/16/2025 11:01:11 EDT ! Subject: Coding [...] answer is desired or expected. Thank you!tanesha [id number] HospitalHEMATOLOGYOrdered By: SYSTEM SYSTEM on 53-50-9295Mjjuilfze/100 WBC (Bld) 0.1 %Normal0.0 - 2.0 %Remisol [...] 27.0 - 34.0 pgRemisol HemeMCHC (RBC) [Mass/Vol]32.0 g/kRHjzava44.4 - 36.0 gm/dL Remisol HemeMCV (RBC) [Entitic vol]84.9 cSDfpyjg95.0 - 100.0 fLRemisol Heme Monocytes (Bld) [#/Vol]1.6 E9/LHigh0.2 - 1.0 E9/LRemisol HemeMonocytes/100 WBC (Bld)10.8 %Normal4.0 - 14.0 %Remisol HemeNeutrophils (Bld) [#/Vol]12.3 E9/LHigh 2.0 - 7.5 E9/LRemisol HemeNeutrophils/100 WBC (Bld)84.3 %High36.0 - 75.0 % Remisol HemePlatelet mean volume (Bld) [Entitic vol]8.7 fLNormal6.4 - 10.8 fL Remisol HemePlatelets (Bld) [#/Vol]268.0 E9/WIlxpre365.0 - 500.0 E9/LRemisol HemeRBC (Bld) [#/Vol]4.4 E12/LNormal4.3 - 5.9 E12/LRemisol HemeWBC corrected for nucl RBC Auto (Bld) [#/Vol]14.6 E9/LHigh4.0 - 11.0 E9/LRemisol ObnyKrkN1eul 77-28-2813EhC1c (Bld) [Mass fraction]9.9 %High<=5.9[facility] Comment on above:Performed By: #### [id number] #### [facility] Laboratory [address] [place] [address]Zlklaofcf Clinical Summaryon 54-50-4607Tbseznryu Clinical SummaryInpatient Clinical Summary [facility] [address] Clinical Summary Person Information: Name: NADIR BETH Age: 85 Years : 1940 Sex: Male PCP: Van Youssef MD Marital Status: Race: White Ethnicity: Non- or Language: Comoran Visit Id: Visit Reason: Altered mental status; Headache; Potential stroke; stroke Speciality: Acuity: Enc Type: Inpatient Med Service: Medical Arrival: 04/14/2025 16:53:36 Discharge: Dispo Type: Admitted as IP to this Hosp Address: [address] [place] [id number] Provider Notes: Diagnosis: 1:CVA (cerebrovascular accident); 2:Atrial [...] VERDUGO DO Consulting Physician: Clover Walker MD; [facility] Cardio, XXXX; [facility] Wound, XXXX Referring Physician: Follow up: With: Address: When: Neurology [phone] Within 2 to 4 weeks Comments: Call for followup a (more content not included)...[facility] HospitalInpatient Patient Summaryon 64-45-9467Icijinkxa Patient SummaryInpatient Patient Summary [place] [address] Patient Discharge Instructions PERSON INFORMATION Name: NADIR [...] with overflow Condition at Discharge: NADIR BETH Joy has been given the following list of [...] results: Follow up: With: Address: When: Neurology [phone] Within 2 to 4 weeks Comments: Call for followup appointment In the event that this physician does not participate in your insurance network, please consult with your insurance company to find a nearby participating provider. Type Location Start Finish State URO Office Visit [facility] [place] 06/11/2025 11:40 AM 06/11/2025 12:00 PM Confirmed [...] times a day. [place] (more content not included)...[facility] Interdisciplinary Note - Case Manageron 42-32-0611Gsregzfjcxpojurpe Note - Case ManagerInterdisciplinary Note - Label Cutter CRM to room 202 Patient is awake, [...] and pericardial effusion. Patient is assigned to [facility], see notes. Patient has wound, cardiology and neurology on case. Patient is pending MRI. He is getting an ECHO now. Patient has recs from therapy for SNF. Patient spouse would like him referred to [facility]. Patient can DC there if accepted on 04/17 per 3 M needed. Patient white board updated. CRM following, contact info provided. DC plan SNF, pending W[facility] accepts for SNF stayDetwiler Memorial HospitalComment on above:Result Comment: Electronically Signed By: Cierra Rouse\.mary\Date and Time Signed: 04/16/25 11:58 EDTInterdisciplinary Note - Case ManagerInterdisciplinary Note - Label Cutter CRM to room 202 Patient is awake, [...] and pericardial effusion. Patient is assigned to [facility], see notes. Patient has wound, cardiology and neurology on case. Patient is pending MRI. He is getting an ECHO now. Patient has recs from therapy for SNF. Patient spouse would like him referred to [facility]. Patient can DC there if accepted on 04/17 per 3 M needed. Patient white board updated. CRM following, contact info provided. [facility]Comment [facility]:Result Comment: Electronically Signed By: Cierra Rouse\.br\Date and Time Signed: 04/16/25 09:48 EDTInterdisciplinary Note - Nursingon 00-39-3241Frqwbnpdrrresjwff Note - NursingInterdisciplinary Note - Nursing pt has a stasis ulcer on left lower leg. 1.2cm long by 1.2cm wide by 0.1 depth. staff can continue with antibiotic ointment, or may use maya and dry dressing change every other day. follow up out patient wound clinicNormalSelect [facility], IncInterdisciplinary Note - OTon 81-49-2234Zuzrtdxqiyrdoxdcj Note - OTInterdisciplinary Note - OT OT [facility] six clicks score 16/24 = SNF. Patient requires MIN A w/ sit to stand transfers at eob, Min- mod A w dynamic standing adls. Pt requires mod vc for walker safety and sequencing w/ all functional tasks. Inpatient OT services to follow daily to progress as tolerates w/ self help skills.[facility] HospitalMRI Brain w/o Contraston 25-90-4563BAW Brain w/o ContrastExam Date/Time: 04/16/2025 11:05 EDT [...] Thom Rashid MD Transcribed by: MARII Technologist: JPNiecySelect Medical Specialty Hospital [facility], IncMagnesiumon 19-34-7861Fueziceba [Mass/Vol]2.4 mg/dLNormal1.3-2.4FMagruder Hospital Comment on above:Performed By: #### [id number] #### [facility] [address], [place] [address]zKRGge 38-96-0115wKRG49 mL/min/1.73 m2Low>=59[facility], IncComment on above:Performed By: #### [id number] #### [facility] [address] [place], [place] [address]AKOhm 34-15-7340Necce gap [Moles/Vol]20 mmol/LHigh6-16[facility], IncComment on above:Performed By: #### [id number] #### [facility] Laboratory [address], [place] [address]YSW/Creat Ratio18 No YayatKangve52-04KnxcjqSelect Medical Specialty [facility], IncComment on above:Performed By: #### [id number] #### [facility] Laboratory [address], [place] [address]Vdndvka [Mass/Vol]9.4 mg/dLNormal8.9-11.1FMagruder HospitalComment on above:Performed By: #### [id number] #### [facility] Laboratory [address], [place] [address]Dllorwdk [Moles/Vol]102 mmol/BLxoeer075-513XfzrrvSelect Medical Specialty Hospital - [facility], IncComment on above:Performed By: #### [id number] #### [facility] Laboratory [address], [place] [address]PQ9 [Moles/Vol]24 mmol/XFdjafi32-08CzfbcmSelect Medical [facility]ty [facility] Comment on above:Performed By: #### [id number] #### [facility] Laboratory [address], [place] [address]Puwdblpbsp [Mass/Vol]1.7 mg/dLHigh0.5-1.3FMagruder HospitalComment on above:Performed By: #### [id number] #### [facility] Laboratory [address], [place] [address]Vufahkd [Mass/Vol]208 mg/jHMgrf84-132NluninSelect Medical Specialty Hospital - [facility], IncComment on above:Performed By: #### [id number] #### [facility] Laboratory [address], [place] [address]Msekccvrw [Moles/Vol]4.0 mmol/LNormal3.5-5.3FMagruder HospitalComment on above:Performed By: #### [id number] #### [facility] Laboratory [address], [place] [address]Nlfuha [Moles/Vol]142 mmol/PZbraod095-992BctgbwSelect Medical Specialty Hospital - [facility], IncComment on above:Performed By: #### [id number] #### [facility] Laboratory [address], [place] [address]Prxe nitrogen [Mass/Vol]30 mg/dLHigh5-21[facility], IncComment on above:Performed By: #### [id number] #### Nick [facility] Laboratory [address], [place] [address]ZISSAUBZTMxhlagi By: SYSTEM SYSTEM on 54-13-1267Ptmqscnbyaw [Mass/Vol]210 mg/vSDjeh725 - 200 mg/dLRemisol ChemCholesterol in HDL [Mass/Vol] 88 mg/dLInvalid Interpretation CodeRemisol ChemComment on above:Result Comment: '>= 60 LOW RISK' '<= 40 HIGH RISK'Cholesterol in LDL [Mass/Vol]107 mg/dLNormal<=129mg/dLRemisol ChemCholesterol in VLDL [Mass/Vol]9 mg/dLNormal7 - 40 mg/dLRemisol ChemCobalamin (Vitamin B12) [Mass/Vol]573 pg/gSKlxzty28 - 1500 pg/mLRemisol ChemFolate [Mass/Vol]ng/mLNormal>=6.7ng/mLRemisol ChemMagnesium [Mass/Vol]2.6 [...] Sensitivity Troponin I Instructions For Use, Roxane Lincoln, June 2018)TSH Qn0.50 m[IU]/LNormal0.34 - 5.60 mcIU/mLRemisol ChemCHEMISTRY Ordered By: Priyanka Daly on 39-11-5980BnY6t (Bld) [Mass fraction]9.9 %High <=5.9%[facility] ChemAutoSSCOAGULATIONOrdered By: Deb Maza on 05-36-8200kCSV Coag (PPP) [Time]45.1 sHigh25.1 - 36.5 second(s)[facility] Auto CoagComment on above: Interpretive Data: Parameter [...] the same coagulation reagent and instrumentation as [facility]. Currently there are no coagulation studies available worldwide for children to 14 days, andno normal ranges. Heparin therapeutic range (represented by Anti-Factor Xa activity of 0.2 - 0.4 U/mL) corresponds to PTT of 56.6 - 109.0 sec.INR Coag (PPP) [Relative time]0.95 {INR}Invalid Interpretation CodeCORDELL [facility]OR[facility] Auto CoagComment on above:Interpretive Data: INR results are specifically intended to assess patients stabilized on long-term Anticoagulation therapy suggested INR s Less Intensive Anticoagulation 2.0 3.0 Conventional Range 3.0 4.5PT Coag (PPP) [Time]10.6 sNormal9.4 - 12.5 second(s) [facility] Auto CoagComment on above:Interpretive Data: 15 days [...] the same coagulation reagent and instrumentation as [facility]. Currently there are no coagulation studies available worldwide for children to 14 days, andno normal ranges.COAGULATIONOrdered By: Samir Naidu on 83-25-4715mUDM Coag (PPP) [Time]53.2 sHigh25.1 - 36.5 second(s)[facility] Auto CoagComment on above:Interpretive Data: Parameter 15 [...] the same coagulation reagent and instrumentation as [facility]. Currently there are no coagulation studies available worldwide for children to 14 days, andno normal ranges. Heparin therapeutic range (represented by Anti-Factor Xa activity of 0.2 - 0.4 U/mL) corresponds to PTT of 56.6 - 109.0 sec.INR Coag (PPP) [Relative time]0.96 {INR}Invalid Interpretation CodeCORDELL [facility]OR[facility] Auto CoagComment on above:Interpretive Data: INR results are specifically intended to assess patients stabilized on long-term Anticoagulation therapy suggested INR s Less Intensive Anticoagulation 2.0 3.0 Conventional Range 3.0 4.5PT Coag (PPP) [Time]10.8 sNormal9.4 - 12.5 second(s) [facility] Auto CoagComment on above:Interpretive Data: 15 days - 4 weeks 1 - 5 months 6 -11 months 1-5 years 6-10 years 11 -17 years Mean: 11.2 (9.5-12.6) Mean: 11.0 (9.7-12.8) Mean: 11.0 (9.8-13.0) Mean: 11.3 (9.9-13.4) Mean: 11.7 (10.0-14.6) Mean: 11.8 (10.0 - 14.1) Pediatric Reference ranges were obtained from a study by amyra Phan al. prepared from 1437 samples obtained at 7 different centers using the same coagulation reagent and instrumentation as [facility]. Currently there are no coagulation studies available worldwide for children to 14 days, andno normal ranges.Capillary Glucose POCon 18-47-9445Jtzbpck [Mass/Vol]177 mg/dLHigh [address] [place], [place] [address]Comment on above:Result Comment: Notified RN/MD Performed By: #### [id number] #### [facility] Laboratory [address], [place] [address]Cbrbhdx [Mass/Vol]202 mg/gYPlwt86-91Fwfgyb[address] Comment on above:Result Comment: Notified RN/MDPerformed By: #### [id number] #### [facility] Laboratory [address], [place] [address]Xwzgzxa [Mass/Vol]216 mg/sVZizs13-95Xojhpf[address] Comment on above:Result Comment: Notified RN/MDPerformed By: #### [id number] #### [facility] Laboratory [address], [place] [address]Eyoacxl [Mass/Vol]242 mg/dKJzwe82-07Bohrxt[address] Comment on above:Result Comment: Notified RN/MDPerformed By: #### [id number] #### [facility] Laboratory [address], [place] [address]Jmwvj [place] 27-18-8435NW Tube CollectedYesInvalid Interpretation [facility] SystemComment on above:Performed By: #### [id number] #### [facility] Laboratory [address], [place] [address]Bjpsoyhz 74-94-4435Uaptza Lvl>22.3Normal>=6.7Fisher [facility] Harbor HospitalComment on above:Performed By: #### [id number] #### [facility] Laboratory [address], [place] [address]Kspbojkxpnad 11-73-5686Iottwzwfuz (Bld) [Mass/Vol]12.2 g/dLLow 13.5-17.5FMagruder HospitalComment on above:Performed By: #### [id number] #### [facility] Laboratory [address], [place] [address]Wmspewvuqsqpruzzy Note - OTon 27-14-7338Dgurktlhzcvtlvlga Note - OTInterdisciplinary Note - OT OT chart reviewed and spoke to nursing with request to hold today until pt. is more medically stable. Will recheck tomorrow.[facility] Interdisciplinary Note - Speech Languageon 60-39-1702Jswbbvtzcquqkenov Note - Speech LanguageInterdisciplinary Note - Speech [...] speech/language/cog up to 5x/week to address these deficits.[facility] HospitalLipid Panelon 04-15-2025 Cholesterol [Mass/Vol]210 mg/eTWhao516-637HsowlbSelect Medical Specialty Hospital [facility], IncComment on above:Performed By: #### [id number] #### Nick [facility] Laboratory [address], [place] [address]Omjodqbbknv in HDL [Mass/Vol]88 mg/dLInvalid Interpretation CodeSelect Medical Specialty Hospital [facility], IncComment on above:Result Comment: '>= 60 LOW RISK' '<= 40 HIGH RISK'Performed By: #### [id number] #### [facility] Laboratory [address], [place] [address]Pqrqrkplnaz in LDL [Mass/Vol]107 mg/dLNormal<=129[facility], IncComment on above:Performed By: #### [id number] #### [facility] Laboratory [address], [place] [address]Qsiopupduqg in VLDL [Mass/Vol]9 mg/dLNormal7-40[facility] IncComment on above:Performed By: #### [id number] #### [facility] Laboratory [address], [place] [address]Lnynqhxdhyyg [Mass/Vol]44 mg/dLNormal<=149[facility], IncComment on above:Performed By: #### [id number] #### [facility] Laboratory [address], [place] [address]Ykkjlpxogng 17-25-6351Sfcvxmyio [Mass/Vol]2.6 mg/dLHigh1.3-2.4 [facility] IncComment on above:Performed By: #### [id number] #### [facility] Laboratory [address], [place] [address]DK & PTTon 26-64-2311XSJ Coag (PPP) [Relative time]0.95 {INR} Invalid Interpretation CodeSelect Medical Specialty [facility], IncComment on above:Result Comment: INR results are specifically intended to assess patients stabilized on long-term Anticoagulation therapy suggested INR???s ???Less Intensive Anticoagulation??? 2.0 ??? 3.0 Conventional Range 3.0 ??? 4.5Performed By: #### [id number] #### [facility] Laboratory [address], [place] [address]OS52.6 second(s)Normal9.4-12.5FMagruder Hospital Comment on above:Result Comment: 15 days [...] the same coagulation reagent and instrumentation as [facility]. Currently there are no coagulation studies available worldwide for children to 14 days, andno normal ranges.Performed By: #### [id number] #### [facility] Laboratory [address], [place] [address]ZOB53.1 second(s)High25.1-36.5FMagruder Hospital Comment on above:Result Comment: Parameter 15 [...] the same coagulation reagent and instrumentation as [facility]. Currently there are no coagulation studies available worldwide for children to 14 days, andno normal ranges. Heparin therapeutic range (represented by Anti-Factor Xa activity of 0.2 - 0.4 U/mL) corresponds to PTT of 56.6 - 109.0 sec.Performed By: #### [id number] #### [facility] Laboratory [address], [place] [address]NWD Coag (PPP) [Relative time]0.96 {INR}Invalid Interpretation CodeSelect Medical Specialty Hospital [facility], IncComment on above:Result Comment: INR results are specifically intended to assess patients stabilized on long-term Anticoagulation therapy suggested INR???s ???Less Intensive Anticoagulation??? 2.0 ??? 3.0 Conventional Range 3.0 ??? 4.5Performed By: #### [id number] #### [facility] Laboratory [address], [place] [address]ZP84.8 second(s)Normal9.4-12.5FMagruder Hospital Comment on above:Result Comment: 15 days [...] the same coagulation reagent and instrumentation as [facility]. Currently there are no coagulation studies available worldwide for children to 14 days, andno normal ranges.Performed By: #### [id number] #### Nick [facility] Laboratory [address], [place] [address]OAN73.2 second(s)High25.1-36.5FMagruder Hospital Comment on above:Result Comment: Parameter 15 [...] the same coagulation reagent and instrumentation as [facility]. Currently there are no coagulation studies available worldwide for children to 14 days, andno normal ranges. Heparin therapeutic range (represented by Anti-Factor Xa activity of 0.2 - 0.4 U/mL) corresponds to PTT of 56.6 - 109.0 sec.Performed By: #### [id number] #### Nick [facility] Laboratory [address] [place], [place] [address]Trspkfgt Counton 47-03-9291Jsyprfyy521.0 E9/UPxpzeb279.0-500.0 [facility], IncComment on above:Performed By: #### [id number] #### [facility] Laboratory [address], [place] [address]Kxyxnkbam Laboratory TestingOrdered By: Braulio DomainUser on 59-95-4350Enqkop Ab RPR Ql (S)Non-ReactiveInvalid Interpretation CodeNon ReactiveCORDELL MEMORIAL [facility] SendOutsSSComment on above:Result Comment: Performed at: [facility] [id number] PhD Huan Gupta With T4fr Reflexon 47-60-3500RXZ Qn0.50 m[IU]/LNormal0.34-5.60[facility], IncComment on above:Performed By: #### [id number] #### [facility] Laboratory [address] [place] [address]Kqgffgpgsq 71-39-6609Osgkrpxl HS62.60 pg/hUPoryqouv48.90-38.40 [facility] IncComment on above:Result Comment: Critical Result Verified by [...] Sensitivity Troponin I Instructions For Use, Roxane Lincoln, June 2018)Performed By: #### [id number] #### [facility] Laboratory [address], [place] [address]UL with Cult Rflxon 62-71-5637Wltbs (U)Light-YellowNormalYellow [facility] IncComment on above:Result Comment: Microscopic readings are only performed on those samples that meet specific criteria set forth by [facility].Performed By: #### [id number] #### [facility] Laboratory [address], [place] [address]Qdhechp Ql (U)1+ mg/dLAbnormalNegativeSelect Medical Specialty Hospital [facility], IncComment on above:Performed By: #### [id number] #### [facility] Laboratory [address], [place] [address]FA BloodTraceAbnormalNegativeSelect Medical Specialty [facility], IncComment on above:Performed By: #### [id number] #### [facility] Laboratory [address], [place] [address]CA ClarityClearNormalClearSelect Medical Specialty [facility], IncComment on above:Performed By: #### [id number] #### [facility] Laboratory [address], [place] [address]PF Glucose4+ mg/dLAbnormalNegDiley Ridge Medical Center Comment on above:Performed By: #### [id number] #### [facility] Laboratory [address], [place] [address]GZ Leuk EstNegativeNormalNegDiley Ridge Medical Center Comment on above:Performed By: #### [id number] #### [facility] Laboratory [address], [place] [address]WZ NitriteNegativeNormalNegDiley Ridge Medical Center Comment on above:Performed By: #### [id number] #### [facility] Laboratory [address], [place] [address]BR pH6.0Invalid Interpretation Code5.0-9.0[facility] IncComment on above:Performed By: #### [id number] #### [facility] Laboratory [address], [place] [address]IO ProteinNegativeNormalNegDiley Ridge Medical Center Comment on above:Performed By: #### [id number] #### [facility] Laboratory [address], [place] [address]VM Spec Grav1.023Invalid Interpretation Code1.005-1.030[facility], IncComment on above:Performed By: #### [id number] #### [facility] Laboratory [address], [place] [address]SG UrobilinogenNegativeNormalNegativeSelect Medical Specialty Hospital [facility], IncComment on above:Performed By: #### [id number] #### [facility] Laboratory [address], [place] [address]Yplmhtevwtxa (U) [Mass/Vol]NegativeNormalNegativeSelect Medical Specialty Hospital [facility], IncComment on above:Performed By: #### [id number] #### [facility] Laboratory [address], [place] [address]SQAYEZHYBXCpcyxxx By: SYSTEM SYSTEM on 36-26-0377Itsjiuvhm Ql (U)NegativeNormalNegativemg/dLCORDELL [facility] UA Auto SSClarity (U)Clear (04/15/25 4:58 AM)NormalClearFTM UA Auto SSColor (U)Light-Yellow 1 (04/15/25 4:58 AM)NormalYellowCORDELL MEMORIAL [facility]OSP[facility] UA Auto SSComment on above:Interpretive Data: Microscopic readings are only performed on those samples that meet specific criteria set forth by [facility].Glucose Ql (U)4+ mg/dLInvalid Interpretation CodeNegativemg/dLFT UA [...] Code5.0 - 9.0FT UA Auto SSProtein Ql (U)NegativeNormalNegativemg/dLFT UA Auto SSSpecific gravity (U) [Rel density] 1.023 *NA* (04/15/25 4:58 AM)Invalid Interpretation Code1.005 - 1.030FT UA Auto SS Urobilinogen (U) [Mass/Vol]NegativeNormalNegativemg/dLCORDELL [facility]ORIAL [facility] UA Auto SSURINALYSIS Ordered By: Nick Farmer on 13-19-4975BS Spec DescClean Catch (04/15/25 4:58 AM)[facility] UA Auto SSVit B12on 25-94-0321Bhbovxtwp (Vitamin B12) [Mass/Vol]573 pg/jXNbwwtt80-5087GizlofSelect Medical Specialty Hospital - [facility], IncComment on above: Performed By: #### [id number] #### Nick [facility] Laboratory [address], [place] [address]dQSGvr 43-08-1026bYRN02 mL/min/1.73 m2Low>=59[facility], IncComment on above:Performed By: #### [id number] #### [facility] Laboratory [address], [place] [address]YL Draw & Holdon 99-36-1897KK D&HSample drawn for Blood Ba NormalSelect Medical Specialty Hospital - Boardman, IncComment on above:Performed By: #### [id number] #### [facility] Laboratory [address], [place] [address]EPQqo 14-12-6710Hmvjn gap [Moles/Vol]15 mmol/LNormal6-16[facility], IncComment on above:Performed By: #### [id number] #### [facility] Laboratory [address] [place] [address]JLZ/Creat Ratio16 No OdzawZgnkqj43-52MmaootSelect Medical Specialty Hospital - [facility], IncComment on above:Performed By: #### [id number] #### [facility] Laboratory [address], [place] [address]Rjkodmp [Mass/Vol]9.0 mg/dLNormal8.9-11.1FMagruder HospitalComment on above:Performed By: #### [id number] #### [facility] Laboratory [address], [place] [address]Wtqcpnge [Moles/Vol]103 mmol/TBtewnt648-933AhyaplSelect Medical Specialty Hospital - [facility], IncComment on above:Performed By: #### [id number] #### [facility] Laboratory [address], [place] [address]EM9 [Moles/Vol]24 mmol/DWyavwi36-33VlixmcSelect Medical [facility]ty [facility] Comment on above:Performed By: #### [id number] #### [facility] Laboratory [address], [place] [address]Byongheuzu [Mass/Vol]1.8 mg/dLHigh0.5-1.3FMagruder HospitalComment on above:Performed By: #### [id number] #### [facility] Laboratory [address], [place] [address]Cdfdrha [Mass/Vol]245 mg/pCLtou33-299PgpeshSelect Medical Specialty Hospital [facility], IncComment on above:Performed By: #### [id number] #### [facility] Laboratory [address], [place] [address]Rphyduyew [Moles/Vol]5.0 mmol/LNormal3.5-5.3FMagruder HospitalComment on above:Performed By: #### [id number] #### [facility] Laboratory [address] [place] [address]Ccmbso [Moles/Vol]137 mmol/KFlccxf509-022OwyvwiSelect Medical Specialty Hospital - Board[facility], IncComment on above:Performed By: #### [id number] #### [facility] Laboratory [address] [place] [address]Ljbn nitrogen [Mass/Vol]28 mg/dLHigh5-21[facility], IncComment on above:Performed By: #### [id number] #### [facility] Laboratory [address], [place] [address]PPHpu 67-32-6702Gbycxkrcdzm peptide B (Bld) [Mass/Vol]512 pg/mL High5-80[facility], IncComment on above:Performed By: #### [id number] #### [facility] Laboratory [address], [place] [address]LTR w/ Auto Diffon 18-00-2067Vtrqzmsh Absolute0.1 E9/LNormal 0.0-0.2FMagruder HospitalComment on above:Performed By: #### [id number] #### [facility] Laboratory [address], [place] [address]Xtxmeverw/100 WBC (Bld)0.8 %Normal0.0-2.0[facility], IncComment on above:Performed By: #### [id number] #### [facility] Laboratory [address] [place] [address]Wvs Absolute0.1 E9/LNormal0.0-0.5FMagruder Hospital Comment on above:Performed By: #### [id number] #### [facility] [address] [place] [address]Zxfwybyhiyh/100 WBC (Bld)1.5 %Normal0.0-8.0[facility], IncComment on above:Performed By: #### [id number] #### [facility] Laboratory [address] [place] [address]Vashrmmxeml distribution width (RBC) [Ratio]19.7 %High10.9-14.2 [facility], IncComment on above:Performed By: #### [id number] #### [facility] Laboratory [address] [place] [address]Vodtfxzaaf (Bld) [Volume fraction]33.7 %Low37.7-49.0[facility], IncComment on above:Performed By: #### [id number] #### [facility] [address] [place] [address]Ojhnnwiezu (Bld) [Mass/Vol]11.0 g/dLLow13.5-17.5FMagruder HospitalComment on above:Performed By: #### [id number] #### [facility] [address] [place] [address]Klbcm Absolute0.6 E9/LLow1.0-4.0[facility] Comment on above:Performed By: #### [id number] #### [facility] [address] [place] [address]Vsbdpaohqqj/100 WBC (Bld)7.8 %Low14.0-50.0[facility], IncComment on above:Performed By: #### [id number] #### Nick [facility] Laboratory [address], [place] [address]IPL (RBC) [Entitic mass]27.5 ppPfjhhp19.0-34.0[facility], IncComment on above:Performed By: #### [id number] #### [facility] [address] [place] [address]ZCXR (RBC) [Mass/Vol]32.7 g/zVNylccj84.4-36.0[facility], IncComment on above:Performed By: #### [id number] #### [facility] [address] [place] [address]OTP (RBC) [Entitic vol]84.0 cKZfickk43.0-100.0[facility], IncComment on above:Performed By: #### [id number] #### [facility] Laboratory [address] [place] [address]Agkc Absolute0.8 E9/LNormal0.2-1.0[facility] Comment on above:Performed By: #### [id number] #### [facility] [address] [place] [address]Ckyxunlmw/100 WBC (Bld)9.9 %Normal4.0-14.0[facility], IncComment on above:Performed By: #### [id number] #### [facility] [address] [place] [address]Pacili Absolute6.5 E9/LNormal2.0-7.5FMagruder Hospital Comment on above:Performed By: #### [id number] #### [facility] [address] [place] [address]Hllhci Auto80.0 %High36.0-75.0[facility] Comment on above:Performed By: #### [id number] #### [facility] [address] [place] [address]Svubrcxb058.0 E9/KYkrzcg480.0-500.0[facility] Comment on above:Performed By: #### [id number] #### [facility] Laboratory [address], [place] [address]Dmaknblr mean volume (Bld) [Entitic vol]9.3 fLNormal6.4-10.8 [facility], IncComment on above:Performed By: #### [id number] #### [facility] Laboratory [address], [place] [address]ILK8.0 E12/LLow4.3-5.9[facility], IncComment on above:Performed By: #### [id number] #### [facility] [address] [place] [address]ZQE6.1 E9/LNormal4.0-11.0[facility], IncComment on above:Result Comment: Peripheral smear review performed.Performed By: #### [id number] #### [facility] [address] [place] [address]SFVLFUABTEvexfbs By: [email or web address] SYSTEM on 59-74-4694Uskcrjq [Moles/Vol]1.5 mmol/LNormal0.5 - 2.2 mmol/LRemisol ChemProcalcitonin0.06 ng/mL [...] to 24 hours.CHEMISTRYOrdered By: Summer Mcguire on 61-21-0383Cgzuktwacbw peptide B (Bld) [Mass/Vol]512 pg/mLHigh5 - 80 pg/mLCORDELL [facility] HemeManSSCHEMISTRYOrdered By: Samir Naidu on 55-01-5044Xzvbrburr [Mass/Vol]2.2 mg/dLNormal1.3 - 2.4 mg/dLRemisol ChemTroponin HS18.30 pg/bXOwmxer65.90 - 38.40 pg/mLRemisol ChemComment on above:Interpretive Data: The 95% CI (Confidence Interval) PPV (Positive Predictive Value) for myocardial infarction in females is 38 pg/mL, in males 51 pg/mL. The results should be used in conjunction with clinical conditions of myocardial infarction. (Access High Sensitivity Troponin I Instructions For Use, Roxane Blanca, June 2018)COAGULATIONOrdered By: Summer Mcguire on 65-53-8739yLLN Coag (PPP) [Time]33.3 mGfndqw57.1 - 36.5 second(s)[facility] Auto CoagComment on above: Interpretive Data: Parameter [...] the same coagulation reagent and instrumentation as [facility]. Currently there are no coagulation studies available worldwide for children to 14 days, andno normal ranges. Heparin therapeutic range (represented by Anti-Factor Xa activity of 0.2 - 0.4 U/mL) corresponds to PTT of 56.6 - 109.0 sec.INR Coag (PPP) [Relative time]0.98 {INR}Invalid Interpretation CodeCORDELL MEMORIAL HOSPITAL – [facility] Auto CoagComment on above:Interpretive Data: INR results are specifically intended to assess patients stabilized on long-term Anticoagulation therapy suggested INR s Less Intensive Anticoagulation 2.0 3.0 Conventional Range 3.0 4.5PT Coag (PPP) [Time]11.0 sNormal9.4 - 12.5 second(s) [facility] Auto CoagComment on above:Interpretive Data: 15 days [...] the same coagulation reagent and instrumentation as [facility]. Currently there are no coagulation studies available worldwide for children to 14 days, andno normal ranges.CT Chest w/o Contraston 73-16-1396PV Chest w/o ContrastExam Date/Time: 04/14/2025 19:05 EDT [...] Yoel Rodriguez DO Transcribed by: MARII Technologist: ADELINAVeterans Health AdministrationCT Head or Brain w/o Contraston 40-69-4453BY Head or Brain w/o ContrastExam Date/Time: 04/14/2025 [...] Rodriguez DO Transcribed by: MARII Technologist: Rachael Medstar Harbor HospitalCTA Headon 32-84-1654BZP HeadExam Date/Time: 04/14/2025 17:33 EDT Reason for Exam: NEURO DEFICIT, ACUTE, STROKE SUSPECTED;Other (please specify) Report Please see CTA neck report. Ordering Provider: Rivas Griggs FINAL REPORT Dictated: 04/14/2025 5:55 pm Yoel Rodriguez DO Signed (Electronic Signature): 04/14/2025 5:55 pm Signed by: Yoel Rodriguez DO Transcribed by: MARII Technologist: Katya VillarrealCara Neckon 36-16-8945STN NeckExam Date/Time: 04/14/2025 17:33 EDT Reason for [...] obtained from the thoracic inlet through the washoe of [place] after administration of intravenous contrast. [...] Yoel Rodriguez DO Transcribed by: MARII Technologist: ZiyadSelect Medical Specialty Hospital - Boardman, IncCapillary Glucose POCon 92-70-6170Ylzhymk [Mass/Vol]261 mg/zDYlsv81-72LnkiecSelect Medical Specialty Hospital - Boardman, IncComment on above:Performed By: #### [id number] #### [facility] Laboratory [address] [place], [place] [address]ED Clinical Summaryon 26-31-1993QK Clinical SummaryED Clinical Summary [address] [address] ED Clinical Summary Person Information Name: NADIR BETH Vira/[facility] Age: 85 Years : 1940 Sex: Male Language: Comoran PCP: Van Youssef MD Marital Status: Visit Id: Visit Reason: Altered mental status; Headache; Potential stroke; stroke Speciality: Acuity: 2 Enc Type: Inpatient Med Service: Medical Arrival: 04/14/2025 16:53:36 Discharge: LOS: 000 03:59 Checkin: 04/14/2025 16:53:36 Checkout: 04/14/2025 20:52:18 Dispo Type: Admitted as IP to this [facility] EVENTS: Event Name Event Status Request Date/Time [...] Pending Labs Request 04/14/2025 19:50:50 ADDRESS: [address] [place] [phone] PHYS DOC NOTES: Addendum by Oleg Doll DO on April 14, 2025 19:50:02 EDT MEDICAL INFORMATION: Prescriptions Given: Medications to Continue with No Changes Other Medications acetaminophen-hydrocodone ([place] 325 mg-5 mg oral tablet) 1 Tablets [...] (in the morn (more content not included)...NormalFisher Cabo Rojo Medical CenterED Note-Physicianon 64-84-7126LM Note-PhysicianED Note-Physician Basic Information Time Seen: Indu SlaughterRivas 04/14/2025 17:02 Chief Complaint pt presents via [facility] d/t ams. family states [...] and Complexity of Problems Differential Diagnosis: [] [facility] Data External documents reviewed: [] [...] shortly repeat after that improved to 207/107. treating blood pressure if systolic is more [...] decision-making, intensive cardiac and/ (more content not included)...[facility]wiler Memorial HospitalComment on above:Result Comment: Electronically Signed By: Oleg Doll DO\.br\Date and Time Signed: 04/14/25 19:50 EDTED Patient Education Note on 08-10-6046OY Patient Education NoteED Patient Education NoteNoTrinity Health [facility] Patient Summaryon 56-84-0033NH Patient SummaryED Patient Summary [place] [id number] Patient Discharge Instructions Person Information Name: NADIR BETH Age: 85 Years Arrival Date: 04/14/2025 16:53:36 Discharge Diagnosis: 1:CVA (cerebrovascular accident); 2:Congestive heart failure; 3:Chronic kidneydisease; 4:Hypertensive urgency; Pericardial effusion; Pleural effusion Primary Care Physician: Van Youssef MD Provider Information Primary Provider: Rivas Griggs M.D. Advanced Sap Bi Developer:None The exam and treatment you received in the Emergency Department were for an urgent problem and are not intended as complete care. It is important that you follow up with a doctor, nurse practitioner,or physician???s assistant to the director for ongoing care. If your symptoms become worse or you do not improve asexpected and you are unable to reach your usual health care provider, you should return to the Emergency Department. We are available 24 hours a day. KIRIT NADIR L has been given the following list of [...] opioids can be used to help relieve btuebeml-rd-lbkgpt pain and are often prescribed following a [...] be struggling with addiction, tell your health behavioral health care coordinator and askfor guidance or call [facility] (more content not included)... NormalFisher Medstar Harbor HospitalLactic Acidon 25-96-8260Jlhrlp Acid Lvl1.5 mmol/LNormal0.5-2.2FMagruder HospitalComment on above:Performed By: #### [id number] #### [facility] Laboratory [address], [place] [address]Szozmeqyjxi 17-12-6309Iliqjvxdm [Mass/Vol]2.2 mg/dLNormal 1.3-2.4FMagruder HospitalComment on above:Performed By: #### [id number] #### [facility] Laboratory [address], [place] [address]Eb Panel InformationOrdered By: ANGPROCESSSERVER MICROBIOLOGY on 24-04-2968Rarej Culture CharcoalNo growth at 4 days. Final to follow at 7 days.Uk HealthcareBlood Culture CharcoalNo growth at 4 days. Final to follow at 7 days.Uk HealthcarePT & PTTon 42-11-1209OQX Coag (PPP) [Relative time]0.98 {INR}Invalid Interpretation StephFormerly Park Ridge Healthantoinette Medstar Harbor HospitalComment on above:Result Comment: INR results are specifically intended to assess patients stabilized on long-term Anticoagulation therapy suggested INR???s ???Less Intensive Anticoagulation??? 2.0 ??? 3.0 Conventional Range 3.0 ??? 4.5Performed By: #### [id number] #### [facility] Laboratory [address], [place] [address]WY27.0 second(s)Normal9.4-12.5FMagruder Hospital Comment on above:Result Comment: 15 days [...] the same coagulation reagent and instrumentation as [facility]. Currently there are no coagulation studies available worldwide for children to 14 days, andno normal ranges.Performed By: #### [id number] #### [facility] Laboratory [address], [place] [address]NND95.3 second(s)Mjvbsn61.1-36.5FMagruder Hospital Comment on above:Result Comment: Parameter 15 [...] the same coagulation reagent and instrumentation as [facility]. Currently there are no coagulation studies available worldwide for children to 14 days, andno normal ranges. Heparin therapeutic range (represented by Anti-Factor Xa activity of 0.2 - 0.4 U/mL) corresponds to PTT of 56.6 - 109.0 sec.Performed By: #### [id number] #### [facility] Laboratory [address], [place] [address]Hit-Aqyeiif Noteon 45-02-8079Kbs-Arrival NotePre-Arrival Note Pre-Arrival Summary Name: , opal Current Date: 04/14/2025 16:54:02 EDT Gender: Male Date of : Age: 85 Pre-Arrival Type: EMS ETA: 04/14/2025 17:17:00 EDT Primary Care Physician: Presenting Problem: Pre-Arrival User: Abdoul Mcmillan Referring Source: Location: [place] Completion Date/Time: 04/14/2025 16:47:00 [facility] Emergency Department Pre-Hospital Report Form Vital Signs: Pre-Hospital Report: Treatment in Route: Response to Treatment: Misc. Issues:NormalSelect Medical Specialty Hospital - Boardman, IncProcalcitoninon 04-14-2025 Procalcitonin.06 ng/mLNormal.00-.50Select [facility], IncComment on above: Result Comment: <0.5 ng/mL Low [...] within 6 to 24 hours.Performed By: #### [id number] #### [facility] Laboratory [address], [place] [address]Zonktjzs 0 Hr.on 55-88-7249Kbiznccm HS18.30 pg/mLNormal 15.90-38.40Select [facility], IncComment on above:Result Comment: The 95% CI (Confidence Interval) PPV (Positive Predictive Value) for myocardial infa rction in females is 38 pg/mL, in males 51 pg/mL. The results should be used in conjunction with clinical conditions of myocardial infarction. (Access High Sensitivity Troponin I Instructions For Use, Roxane Flo Water, June 2018)Performed By: #### [id number] #### [facility] Laboratory [address], [place] [address]TN with Cult Rflxon 43-75-4647JF Spec DescClean CatchNormal [facility], IncComment on above:Performed By: #### [id number] #### [facility] Laboratory [address], [place] [address]MU Chest Single Viewon 72-28-5764ST Chest Single ViewExam Date/Time: 04/14/2025 17:32 EDT [...] Yoel Rodriguez DO Transcribed by: MARII Technologist: CNKNormalSelect Medical Specialty Hospital - [facility], InceGFRon 66-83-2240aTOK34 mL/min/1.73 m2Low>=59[facility], IncComment on above:Performed By: #### [id number] #### Nick [facility] Laboratory [address] [place], [place] [address]Mmamsx Visiton 37-39-4564Kgrzxt-up [id number] Nadir Beth 1940 M Date Provider Department Center 03/12/2025 CLARIBEL VILLALOBOS [facility] Family History Problem Relation Age of Onset Coronary artery disease Father Family Status - Relation Status Age at Father Level of Service:[address] [place] OFFICE/OUTPATIENT ESTABLISHED HIGH [facility] [address] [facility] HealthHPon [id number] Attestation signed by Albaro Faulkner MD at 03/01/2025 6:06 PM I personally saw and examined the patient on the same date of service as resident/fellow Dr chilel. I discussed the findings and therapeutic plan with the resident/fellow Dr chilel. I agree with the documentation, except for any edits/updates below. Teaching Physician's Revisions: None Albaro Faulkner MD, [facility] History Of Present Illness Nadir Beth [...] Father Allergies Iodinated contrast media, Nitroglycerin, and Moiroia-vme-spd reductase inhibitors Medications (Not in a hospital [...] Imaging Results Transesophageal echo (MARK) Addendum: [facility] Heart Station [address] [place] [address] [phone] (fax) Transesophageal Echocardiogram-[facility] Name: NADIR BETH Study Date: 08/31/2023 02:31 PM B/P: 190 mmHg/86 mmHg HR: 92 bpm Date of : 1940 Location: [facility] Height: 71 in. Age: 83 year(s) Patient Room: Weight: 210 lb. Gender: Male Patient Status: OutPt BSA: 2.15 m2 Indication: Aortic Valve Stenosis Examination: MARK/Limited Doppler/CFI Image Quality: Excellent Patient Consent: Informed, written consent was obtained for the procedure Exam Location: A MARK was performed in the Neurosurgical Nurse without complications Anesthesia Pharyngeal anesthesia with viscous Lidocaine Conclusions Left Ventricle: Global left ventricular systolic function is hyperdynamic. EF range is estimated at 65 % -70 %. No regional wall motion abnormality. Right Ventricle: The right ventricle appears normal in size. Normal right kari (more content not included)...[facility] HospitalNURSNOTEon 88-23-1892NYFCLMDOUuznmaw swallow study completed and passed. RN educated [...] wheeled off of unit with all of belongings.NormalUnPaulding County HospitalTelephoneon [id number] Nadir Beth 1940 M Date Provider Department Center 02/21/2025 RABIA KONG [facility] VASC LAB [facility] Family History Problem Relation Age of Onset Coronary artery disease Father Family Status - Relation Status [facility] at [facility] HospitalNoalUniOhioHealth Mansfield HospitalFollow-Upon 41-44-5634Nhcgic-Up [id number] Nadir Beth 1940 M Date Provider Department Center 01/03/2025 Salvador-RUTHIE LINDA [facility] NEPHRO Comprehensiv Family History Problem Relation Age of Onset Coronary artery disease Father Family Status - Relation Status Age at Father Level of Service:22633 [place] OFFICE/OUTPATIENT ESTABLISHED MOD MDM 30 MIN () Reason for Visit and Comments: Follow-up [[id number]][facility] HospitalOffice Visiton 73-63-2546Pcaori-up [id number] Nadir Beth 1940 M Date Provider Department Center 12/14/2024 CLARIBEL VILLALOBOS [facility] Hos Family History Problem Relation Age of Onset Coronary artery disease Father Family Status - Relation Status Age at Father Level of Service:[address] [place] OFFICE/OUTPATIENT ESTABLISHED MOD MDM 30 MINLouis Stokes Cleveland [facility] Medical CenterAmbulatory Visit Summaryon 12-04-2024 Ambulatory Visit [...] GUSTAFSON, MARQUIS This Is Your Medications List acetaminophen-hydrocodone ([place] 325 mg-5 mg oral tablet) ciprofloxacin (Cipro [...] LU OLMEDO PA-C Where: [facility] [address] You Need to Schedule the Following Appointments Follow Up with ADRIAN GUSTAFSON, ADAN CHO When: In 6 months Comments: Can see DIAMANTE, w/PVR Where: Medications What How Much When Why Instructions Unchanged acetaminophen-hydrocodone ([place] 325 mg-5 mg oral tablet) 1 Tablets [...] questions or concerns Uncha (more content not included)...NormalSelect Medical Specialty Hospital - Boardman, IncUrology Office/Clinic Noteon 83-31-7046Oxtjrgd Office/Clinic NoteUrology Office/Clinic Note Chief Complaint 6-8 [...] out of his penis. Pt presented to [facility] ER 10/28/24 due to clot retention. [...] 7. 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) Pt presented to [facility] ER 08/06/24 with redness on the [...] penis. -Cont symptomatic monitoring 8. 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 Hx of cardioversion. Increased risk for bleeding. Elevated r (more content not included)...[facility]iler Memorial HospitalComment on above:Result Comment: Electronically Signed By: ADRIAN GUSTAFSON, MARQUIS\.br\Date and Time Signed: 12/04/24 09:21 EST\.br\Electronically Co-Signed By: Deepthi Kevin\.br\Date and Time Co- Signed: 12/04/24 09:11 ESTAmbulatory Visit Summaryon 89-01-0202Lvvdsowwxn Visit SummaryAmbulatory Visit Summary NADIR BETH :1940 Visit Date:11/06/2024 Ambulatory Visit Instructions Your Care Team Attending Physician - Mejia SINGH MD Primary Care Physician - Van Youssef MD This Is Your Medications List NIFEdipine acetaminophen-hydrocodone ([place] 325 mg-5 mg oral tablet) acyclovir apixaban [...] MARQUIS LOUISE MD Where: [facility] [address], [address] [place] [address]- Medications What How Much When Why Instructions Unchanged acetaminophen-hydrocodone ([place] 325 mg-5 mg oral tablet) 1 Tablets [...] receive a survey v (more content not included)...[facility] HospitalAmbulatory Visit Summaryon 54-36-2966Ifzvjuhxdw Visit Summary Ambulatory Visit Summary NADIR BETH :1940 Visit Date:11/02/2024 Ambulatory Visit Instructions Your Diagnosis BPH with urinary obstruction Gross hematuria Incomplete bladder emptying OAB (overactive bladder) Acquired buried penis Balanitis Anticoagulated Your Care Team Attending Physician - ADRIAN GUSTAFSON, MARQUIS Primary Care Physician - Van Youssef MD This Is Your Medications List acetaminophen-hydrocodone ([place] 325 mg-5 mg oral tablet) ciprofloxacin (Cipro [...] AM EST With: Where: [facility] [address] [place] [address]- Wednesday 8:40 AM EST With: MARQUIS LOUISE MD Where: [facility] [address] [place] [address]- You Need to Schedule the Following Appointments Follow Up with ADRIAN GUSTAFSON, ADAN CHO When: Where: Medications What How Much When Why Instructions Unchanged acetaminophen-hydrocodone ([place] 325 mg-5 mg oral tablet) 1 Tablets [...] if questions or co (more content not included)...[facility] Memorial HospitalUrology Office/Clinic Noteon 08-33-0503Wrqkslh Office/Clinic Note Urology Office/Clinic Note Chief Complaint er f/u HPI Staff 84 year old male here for [facility] ER F/U, difficulty urinating. Bladder scan [...] with voice recognition artificial intelligence software, specifically Zentric, Pro 3 Games and or Stir. Substitutions may have occurred due to the [...] out of his penis. Pt presented to [facility] ER 10/28/24 due to clot retention. [...] 6. 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) Pt presented to [facility] ER 08/06/24 with redness on the [...] penis. -Cont symptomatic monitoring 7. Anticoagulated (Z79.01: retirement (current) use of anticoagulants) Taking Eliquis, has restarted since UroLift. Hx of cardioversion. Increased risk for bleeding. Elevated risk for periop complications. Patient underwent a UroLift procedure approximately a week and a half ago. Unfortunately, he developed gross hematuria with clot retention that required hand irrigation with a three-way Palomares catheter. He presents today for an (more content not included)...[facility]iler Memorial HospitalComment on above:Result Comment: Electronically Signed By: MARQUIS LOUISE MD\.br\Date and Time Signed: 11/02/24 08:40 EST\.br\Electronically Co-Signed By: Roxy Gatica\.br\Date and Time Co-Signed: 11/02/24 08:27 EST\.br\Electronically Co-Signed By: Roxy Gatica\.br\Date and Time Co-Signed:11/02/24 08:29 EST Ambulatory Visit Summaryon 42-85-4407Ghheiqwxuk Visit SummaryAmbulatory Visit Summary NADIR BETH :1940 Visit Date:10/25/2024 Ambulatory Visit Instructions Your Care Team Attending Physician - MARQUIS LOUISE MD Primary Care Physician - Van Youssef MD Referring Physician - MARQUIS LOUISE MD This Is Your Medications List NIFEdipine acetaminophen-hydrocodone ([place] 325 mg-5 mg oral tablet) acyclovir apixaban [...] MARQUIS LOUISE MD Where: [facility] [address], [address] [place] [address]- Medications What How Much When Why Instructions Unchanged acetaminophen-hydrocodone ([place] 325 mg-5 mg oral tablet) 1 Tablets [...] Incomplete bladder emptying Naus (more content not included)...[facility] Memorial HospitalInpatient Patient Summaryon 16-28-0185Nrndqstxr Patient SummaryInpatient Patient Summary [address] [address] Clinical Summary Person Information Name: NADIR BETH Age: 84 Years : 1940 Sex: Male PCP: Van Youssef MD Marital Status: Race: White Ethnicity: Non- or Language: Comoran Visit Id: Visit Reason: BPH WITH URINARY OBSTRUCTION, INCOMPLETE BLADDER EMPTYING Speciality: Acuity: Enc Type: Outpatient Med Service: Surgery Arrival: 10/23/2024 13:48:15 Discharge: Dispo Type: Address: [address] [place] [phone] Provider Notes: Diagnosis: Problems Active BPH with [...] Documented This Visit Final Med List: acetaminophen-hydrocodone ([place] 325 mg-5 mg oral tablet) 1 Tablets [...] Follow up: Patient Education Information: Benign Prostatic HyperplasiaDetwiler Memorial HospitalMain OR Intraoperative Recordon 77-19-3281Wsbk OR Intraoperative RecordMain OR Intraoperative Record IntraOp Document Type FTURO Summary Primary Physician: MARQUIS LOUISE MD Finalized Date/Time: 10/23/24 15:03:19 Pt. Name: NADIR BETH/Sex: 1940 Male Med Rec #: [id number] Physician: MARQUIS LOUISE MD Financial #: [id number] Pt. Type: O Room/Bed: / Admit/Disch: 10/23/24 [...] 3 Case Attendee ADRIAN GUSTAFSON, Oliva Goel [facility], Ana CHO Role Performed Surgeon - Primary Outplacement Consultant - Primary Scrub - Primary Time In [...] Implant Implant Identification Description UROLIFT Lot Number [id number] Desk Maker UROLIFT Catalog ???# UL2-C Expiration Date 11/30/25 [...] 10/23/24 15:03 Oliva Goel (more content not included)...[facility]wiler Memorial HospitalMain OR Preoperative Recordon 08-11-9094Cgyh OR Preoperative RecordMain OR Preoperative Record Holding Area Document Type FTURO Summary Primary Physician: MARQUIS LOUISE MD Finalized Date/Time: 10/23/24 14:17:30 Pt. Name: NADIR BETH /Sex: 1940 Male Med Rec #: [id number] Physician: MARQUIS LOUISE MD Financial #: [id number] Pt. Type: O Room/Bed: / Admit/Disch: 10/23/24 [...] Complaints of Pain: No Skin Integrity Intact, [place], Warm, & Dry Vitals - EU Blood Pressure 152/78 Pulse 84 bpm Respirations 18 br/min SPO2 90 % Additional None RN Reviewed Yes Specimens Collected Last Modified By: Oliva Goel 10/23/24 14:17:29 Finalized By: Oliva Goel Document Signatures Signed By: Preeti Kaur LPN 10/23/24 14:05 Oliva Goel 10/23/24 14:17NoSelect Medical OhioHealth Rehabilitation HospitalOperative Reporton 55-80-1420Hdtacrdff ReportOperative Report Patient: NADIR BETH Age: 84 [...] urethral meatus. We then placed the 20 Czech cystoscope into the bladder. Bilobar hyperplasia was [...] able to easily navigate with a 20 Czech scope. Scope was then removed and an 18 Czech Palomares catheter was placed with return of light pink urine and no clots noted. This concluded the procedure. Patient was then transferred to PACU in stable condition. PLAN: Patient will follow-up in 2 days for Palomares catheter removal. 10 cc in the balloon Follow-up in 6 to 8 weeks with IPSS at that timeDetwiler Memorial HospitalComment on above:Result Comment: Electronically Signed By: ADRIAN GUSTAFSON, MARQUIS\.br\Date and Time Signed: 10/23/24 15:06 ESTOutpatient Surgery Discharge Instructionon 86-16-0720Dxrptupfqa Surgery Discharge Instruction Outpatient Surgery Discharge Instruction [place] [id number] Patient Discharge Instructions PERSON INFORMATION Name: NADIR [...] a small amount of (more content not included)...[facility] Memorial HospitalAmbulatory Visit Summaryon 77-22-4116Jldqpeyrwp Visit SummaryAmbulatory Visit Summary NADIR BETH :1940 [...] Follow-Up Appointments Wednesday 11:00 AM EST Where: [facility] Wednesday 3:00 PM EST Where: [facility] You Need to Schedule [...] stools Patient Survey Yo (more content not included)...[facility] HospitalAmbulatory Visit SummaryAmbulatory Visit Summary NADIR BETH [...] choosing us for (more content not included)... [facility] HospitalUrology Office/Clinic Noteon 10-72-5715Rvlaltx Office/Clinic NoteUrology Office/Clinic Note Chief Complaint 1-2 [...] with voice recognition artificial intelligence software, specifically Zentric, Pro 3 Games and or Stir. Substitutions may have occurred due to the [...] -Cipro 500mg bid start the day prior, [place] 325-5mg #2 q6hrs as needed for pain, [...] 3. 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) Pt presented to [facility] ER 08/06/24 with redness on the [...] and Lasix. -Dm control 6. Anticoagulated (Z79.01: continuous churn buttermaker (current) use of anticoagulants) Taking Eliquis. Hx of cardioversion. Elevated risk for periop complications. Based on patient's age, multiple medical comorbidities and his prostate size we discussed extensively that he will benefit most likely from a UroLift procedure. He is amenable to (more content not included)...[facility] HospitalComment on above:Result Comment: Electronically Signed By: MARQUIS LOUISE MD\.br\Date and Time Signed: 10/02/24 11:43 EST\.br\Electronically Co- Signed By: Roxy Gatica\.br\Date and Time Co-Signed: 10/02/24 11:21 EST\.br\Electronically Co-Signed By: Roxy Gatica\.br\Date and Time Co-Signed:10/02/24 11:22 EST\.br\Electronically Co-Signed By: Roxy Gatica\.br\Date and Time Co-Signed: 10/02/24 11:23 ESTInpatient Patient Summaryon [id number] Patient SummaryInpatient Patient Summary [address] [address] Clinical Summary Person Information Name: NADIR BETH Age: 84 Years : 1940 Sex: Male PCP: Van Youssef MD Marital Status: Race: White Ethnicity: Non- or Language: Comoran Visit Id: Visit Reason: ENLARGED PROSTATE WITH URINARY OBSTRUCTION, INCOMPLETE BLADDER EMPTYING Speciality: Acuity: Enc Type: Outpatient Med Service: Surgery Arrival: 09/25/2024 11:42:27 Discharge: Dispo Type: Address: [address] [place] [address] [phone] Provider Notes: Diagnosis: Problems Active BPH with [...] With: Address: When: MARQUIS LOUISE [address] [place] [address] [phone] Business (1) Comments: Follow-up in the office in 2 weeks to discuss next plan With: Address: When: MARQUIS LOUISE [address] [place] [address] [phone] Business (1) Patient Education Information: Benign Prostatic HyperplasiaDetwiler Memorial HospitalMain OR Intraoperative Recordon [id number] OR Intraoperative RecordMain OR Intraoperative Record IntraOp Document Type FTURO Summary Primary Physician: MARQUIS LOUISE MD Finalized Date/Time: 09/25/24 13:23:58 Pt. Name: NADIR BETH/Sex: 1940 Male Med Rec #: [id number] Physician: MARQUIS LOUISE MD Financial #: [id number] Pt. Type: O Room/Bed: / Admit/Disch: 09/25/24 [...] C KWABENA Role Performed Surgeon - Primary Outplacement Consultant - Primary Scrub - Primary Time In [...] Goel 09/25/24 13:23 Oliva Goel 09/25/24 13:23Normal [facility] IncMain OR Preoperative Recordon 25-54-1232Rmkg OR Preoperative RecordMain OR Preoperative Record Holding Area Document Type FTURO Summary Primary Physician: MARQUIS LOUISE MD Finalized Date/Time: 09/25/24 13:04:51 Pt. Name: NADIR BETH D.O.B./Sex: 1940 Male Med Rec #: [id number] Physician: MARQUIS LOUISE MD Financial #: [id number] Pt. Type: O Room/Bed: / Admit/Disch: 09/25/24 [...] Complaints of Pain: No Skin Integrity Intact, [place], Warm, & Dry Vitals - EU Blood Pressure Pulse Respirations SPO2 Additional None RN Reviewed Yes Specimens Collected Last Modified By: Oliva Goel 09/25/24 13:04:50 Finalized By: Oliva Goel Document Signatures Signed By: Preeti Kaur LPN 09/25/24 12:49 Oliva Goel 09/25/24 13:04[facility] HospitalOperative Reporton [id number] ReportOperative Report Patient: NADIR BETH Age: 84 [...] discuss next steps Impression and Plan Counseled: Family.[facility] HospitalComment on above:Result Comment: Electronically Signed By: MARQUIS LOUISE MD\.br\Date and Time Signed: 09/25/24 13:27 ESTOutpatient Surgery Discharge Instructionon 09-25-2024 Outpatient Surgery Discharge InstructionOutpatient Surgery Discharge Instruction [place] [id number] Patient Discharge Instructions PERSON INFORMATION Name: NADIR [...] Follow up: With: Address: When: MARQUIS LOUISE [address] [place] [address] [phone] Business (1) Comments: Follow-up in the office in 2 weeks to discuss next plan With: Address: When: MARQUIS LOUISE [address] [place] [address] [phone] Business (1) Comment: PATIENT EDUCATION INFORMATION Instructions: [...] procedure uses radio frequen (more content not included)...NormalFormerly [facility]ther [facility] HospitalNo Panel Informationon 09-36-1303WNTT HealthcareAmbulatory Visit Summaryon [id number] Visit SummaryAmbulatory Visit Summary KIRITNADIR Joy :1940 Visit Date:08/08/2024 Ambulatory Visit Instructions Your Diagnosis 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) Pt presented to [facility] ER 08/06/24 with redness on the [...] bladder and urinary channel, (more content not included)...[facility] HospitalComment on above:Result Comment: Electronically Signed By: MARQUIS LOUISE MD\.br\Date and Time Signed: 08/08/24 11:05 EDT\.br\Electronically Co-Signed By: Roxy Gatica\.br\Date and Time Co- Signed: 08/08/24 10:46 EDT\.br\Electronically Co-Signed By: Roxy Gatica\.br\Date and Time Co-Signed:08/08/24 10:53 EDTMICRO OTHER TESTSOrdered By: Francisco Bolanos on 57-59-7501Arjvt WBC LactoferrinNegative (04/15/23 7:00 AM)NormalNegativeCORDELL MEMORIAL [facility] COR[facility]LL Man SeroCHEMISTRYOrdered By: SYSTEM SYSTEM on 45-28-2632Vscxfed [Mass/Vol]3.8 g/dLNormal3.3 - 5.0 gm/dLFT Remisol Albumin/Globulin [Mass ratio]1.4 {ratio}Normal1.1 - 2.2FTMC RemisolALP [Catalytic activity/Vol]61 [iU]/sKrqfdm26 - 98 Int._Unit/LFTMC RemisolALT No additional P-5'-P [Catalytic activity/Vol]16 [iU]/dNormal6 - 46 Int._Unit/LFTMC RemisolAnion gap [Moles/Vol]13 mmol/LNormal6 - 16 mEq/LFTMC RemisolAST [Catalytic activity/Vol]18 [iU]/dNormal5 - 43 Int._Unit/LFTMC RemisolBilirubin [Mass/Vol]0.5 mg/dLNormal0.0 - 1.1 mg/dLFT RemisolCalcium [Mass/Vol]8.8 mg/dL Low8.9 - 11.1 mg/dLFT RemisolChloride [Moles/Vol]104 mmol/NNiclhx436 - 111 mmol/LFTMC RemisolCO2 [Moles/Vol]28 mmol/VEtskrm92 - 31 mmol/LFTMC Remisol Creatinine [Mass/Vol]1.8 mg/dLHigh0.5 - 1.3 mg/dLFT RemisolGFR/1.73 sq M.predicted among non-blacks MDRD (S/P/Bld) [Vol rate/Area]37 mL/min/1.73 m2Low >=59mL/min/1.73 m2[facility] Chem SGlobulin (S) [Mass/Vol]2.8 g/dLNormal1.4 - 4.0 gm/dLFT RemisolGlucose [Mass/Vol]111 mg/oIPotevy51 - 199 mg/dLFT Remisol Potassium [Moles/Vol]4.1 mmol/LNormal3.5 - 5.3 mmol/LFTMC RemisolProtein [Mass/Vol]6.6 g/dLNormal6.0 - 7.8 gm/dLFT RemisolSodium [Moles/Vol]141 mmol/L Xcwmmc011 - 145 mmol/LFTMC RemisolUrea nitrogen [Mass/Vol]24 mg/dLHigh5 - 21 mg/dLFT RemisolUrea nitrogen/Creatinine [Mass ratio]13 mg/wuZwiiyo17 - 20FT RemisolHEMATOLOGYOrdered By: SYSTEM SYSTEM on 32-26-6251Tprptgizj/100 WBC (Bld) 0.9 %Normal0.0 - 2.0 %[facility] [...] - 1.0 E9/LFTMC HemeAutoSSNeutrophils/100 WBC (Bld) 68.5 %Kwqxdd89.0 - 75.0 %[facility] HemeAutoSSNeutrophils/Leukocytes Auto (Bld) [Pure # fraction]4.6 E9/LNormal2.0 - 7.5 E9/LFTMC HemeAutoSSHEMATOLOGYOrdered By: Gauri Scott on 23-28-8683Efjtqphpdzb distribution width (RBC) [Ratio]14.7 % High10.9 - 14.2 %[facility] HemeAutoSSHematocrit (Bld) [Volume fraction]40.3 %Normal 37.7 - 49.0 %[facility] HemeAutoSSHemoglobin (Bld) [Mass/Vol]13.7 g/uWEqmids08.5 - 17.5 gm/dLFTMC HemeAutoSSMCH (RBC) [Entitic mass]33.9 jsYnrzrj15.0 - 34.0 pgFTMC HemeAutoSSMCHC (RBC) [Mass/Vol]34.0 g/bPHzzfyo37.4 - 36.0 gm/dLFTMC HemeAutoSS MCV (RBC) [Entitic vol]99.8 vLNtkxjv46.0 - 100.0 fLFTMC HemeAutoSSPlatelet mean volume (Bld) [Entitic vol]9.8 fLNormal6.4 - 10.8 fLFTMC HemeAutoSSPlatelets (Bld) [#/Vol]161.0 E9/VEdumij785.0 - 500.0 E9/LFTMC HemeAutoSSRBC (Bld) [#/Vol] 4.0 E12/LLow4.3 - 5.9 E12/LFTMC HemeAutoSSWBC corrected for nucl RBC Auto (Bld) [#/Vol]6.7 E9/LNormal4.0 - 11.0 E9/LFTMC HemeAutoSSALBUMINon 86-18-8448Ctvhryc [Mass/Vol]3.3 g/dLCritically low3.4-5.0The [facility] HospitalComment on above: Performed By: #### MG, BMP, PHOS #### [facility] [address] [address] [address] David MaganaGLYCOHEMOGLOBIN A1Con 50-43-3473ZCS RECOMMENDATIONSEE BELOWNormal Wilson HealthComment on above:Result Comment: ADA RECOMMENDED LIMIT 4.0 - 6.0 ADA THERAPEUTIC TARGET < 7.0 ACTION SUGGESTED > 7.0Performed By: #### A1C #### [facility] [address] [address] [address] David MaganaGlucose [Mass/Vol]108 mg/dLNormalThe [facility] HospitalComment on above:Performed By: #### A1C #### [facility] [address] [address] [address] David MaganaHbA1c (Bld) [Mass fraction]5.4 %Normal4.5-6.2The [facility] HospitalComment on above:Performed By: #### A1C #### [facility] [address] [address] [address] David MaganaPHOSPHORUSon 85-22-4813Swhzwiizp [Mass/Vol]3.6 mg/dLNormal2.6-4.7 The [facility] HospitalComment on above:Performed By: #### MG, BMP, PHOS #### [facility] [address] [address] [address] David MaganaPROF CHEM 8 (BAS METB)on 47-29-0321Tiaru gap [Moles/Vol]11.6 mmol/LNormalWilson HealthComment on above:Performed By: #### MG, BMP, PHOS #### [facility] [address] [place], [place] [id number] Dr. David MaganaCalcium [Mass/Vol]8.9 mg/dLNormal8.5-10.1The [facility] Comment on above:Performed By: #### MG, BMP, PHOS #### [facility] [address] [address] [address] David MaganaChloride [Moles/Vol]107 mmol/RUegudm24-779Rrd [facility] Comment on above:Performed By: #### MG, BMP, PHOS #### [facility] [address] [place] [address] Dr. David MaganaCO2 [Moles/Vol]30.8 mmol/SSnihyo41.0-32.0The [facility] Comment on above:Performed By: #### MG, BMP, PHOS #### [facility] [address] [place] [address] Dr. David MaganaCreatinine [Mass/Vol]1.67 mg/dLCritically high0.70-1.30The [facility] HospitalComment on above:Performed By: #### MG, BMP, PHOS #### [facility] [address] [place] [address] Dr. David EvansGFR-AF FFLQMGSE59 mL/min/1.01m9Gejoezmgba low>=60The [facility] HospitalComment on above:Performed By: #### MG, BMP, PHOS #### [facility] [address] [place] [address] Dr. David EvansGFR-NON AF YGMSHQUS71 mL/min/1.68a9Kljphiziuf low>=60The [facility] HospitalComment on above:Performed By: #### MG, BMP, PHOS #### [facility] [address] [place] [address] Dr. David MaganaGlucose [Mass/Vol]128 mg/dLCritically skua62-884Dgx [facility] HospitalComment on above:Performed By: #### MG, BMP, PHOS #### [facility] [address] [place] [address] Dr. David MaganaPotassium [Moles/Vol]4.4 mmol/LNormal3.5-5.1[facility] Comment on above:Performed By: #### MG, BMP, PHOS #### [facility] [address] [place] [address] Dr. David Linkdium [Moles/Vol]145 mmol/BMaeown391-208Paz [facility] Comment on above:Performed By: #### MG, BMP, PHOS #### [facility] [address] [place] [address] Dr. David Gomez nitrogen [Mass/Vol]25.0 mg/dLCritically high7.0-18.0The [facility] HospitalComment on above:Performed By: #### MG, BMP, PHOS #### [facility] [address] [place] [address] Dr. David Gomez nitrogen/Creatinine [Mass ratio]15.0 mg/mgNoMercy Health St. Rita's Medical CenterComment on above:Performed By: #### MG, BMP, PHOS #### [facility] [address] [place] [address] Dr. David MaganaVITAMIN D 25 OHon 35-82-7190OCT D 25-OH11.6 ng/mLNormalThe [facility] HospitalComment on above:Performed By: #### CBC #### [facility] [address] [place] [address] Dr. David Gil RANGESSEE BELOWNoMercy Health St. Rita's Medical CenterComment on above: Result Comment: <20 ng/mL Vit D deficient 20 - <30 ng/mL Vit D insufficient 30 - 100 ng/mL Vit D sufficient >100 ng/mL Potential ToxicityPerformed By: #### CBC #### [facility] [address] [place] [address] Dr. David Frazier AUTO DIFFon 55-94-2613HIAU #0.0 103/ulNormal0.0-0.1The [facility] HospitalComment on above:Performed By: #### MG, BMP, PHOS #### [facility] [address] [place] [address] Dr. David MaganaBasophils/100 WBC (Bld)0.5 %Normal0.2-2.0The [facility] Comment on above:Performed By: #### MG, BMP, PHOS #### [facility] [address] [place] [address] Dr. David [place] #0.7 103/ulNormal0.0-0.7The [facility] HospitalComment on above: Performed By: #### MG, BMP, PHOS #### [facility] [address] [place] [address] Dr. David Evansosinophils/100 WBC (Bld)9.3 %Critically high0.9-7.0The [facility] HospitalComment on above:Performed By: #### MG, BMP, PHOS #### [facility] [address] [place] [address] Dr. David Evansrythrocyte distribution width (RBC) [Ratio]14.6 %Srlpqk59.0-15.0 The [facility] HospitalComment on above:Performed By: #### MG, BMP, PHOS #### [facility] [address] [place] [address] Dr. David MaganaHematocrit (Bld) [Volume fraction]41.5 %Critically low42.0-54.0 The [facility] Hospital Companyment on above:Performed By: #### MG, BMP, PHOS #### [facility] [address] [place] [address] Dr. David MaganaHemoglobin (Bld) [Mass/Vol]13.9 g/dLCritically low14.0-18.0The [facility] Companyment on above:Performed By: #### MG, BMP, PHOS #### [facility] [address] [place] [address] Dr. David Gerardo #0.02 10e3/ulNormal0.00-0.03The [facility] HospitalComment on above:Performed By: #### MG, BMP, PHOS #### [facility] [address] [place] [address] Dr. David Gerardo %0.3 %Normal0.0-0.5The [facility] HospitalComment on above: Performed By: #### MG, BMP, PHOS #### [facility] [address] [place] [address] Dr. David Patiño #1.0 103/ulCritically low1.2-3.8The [facility] Comment on above:Performed By: #### MG, BMP, PHOS #### [facility] [address] [place] [address] Dr. David Marshallhocytes/100 WBC (Bld)13.0 %Critically low20.5-60.0The [facility] HospitalComment on above:Performed By: #### MG, BMP, PHOS #### [facility] [address] [place] [address] Dr. David Beasley DIFF REQNONormalThe [facility] HospitalComment on above: Performed By: #### MG, BMP, PHOS #### [facility] [address] [place] [address] Dr. David Faulkner (RBC) [Entitic mass]33.5 zqHkfahe20.9-34.0The [facility] HospitalComment on above:Performed By: #### MG, BMP, PHOS #### [facility] [address] [place] [address] Dr. David Faulkner (RBC) [Mass/Vol]33.5 g/mKEnduay06.9-35.2The [facility] HospitalComment on above:Performed By: #### MG, BMP, PHOS #### [facility] [address] [place] [address] Dr. David Faulkner (RBC) [Entitic vol]100.0 fLCritically high80.0-94.0The [facility] HospitalComment on above:Performed By: #### MG, BMP, PHOS #### [facility] [address] [place] [address] Dr. David Santos #0.8 103/ulNormal0.3-0.8The [facility] HospitalComment on above:Performed By: #### MG, BMP, PHOS #### [facility] [address] [place] [address] Dr. David Dickensocytes/100 WBC (Bld)10.1 %Normal1.7-12.0The [facility] Comment on above:Performed By: #### MG, BMP, PHOS #### [facility] [address] [place] [address] Dr. David SargentUT #5.0 103/ulNormal1.4-6.5The [facility] HospitalComment on above:Performed By: #### MG, BMP, PHOS #### [facility] [address] [place] [address] Dr. David Sargentutrophils/100 WBC (Bld)66.8 %Gbbmhw10.0-75.0The [facility] HospitalComment on above:Performed By: #### MG, BMP, PHOS #### [facility] [address] [place] [address] Dr. David MaganaPlatelet mean volume (Bld) [Entitic vol]11.2 fLNormal9.5-13.5The [facility] HospitalComment on above:Performed By: #### MG, BMP, PHOS #### [facility] [address] [place] [address] Dr. David MaganaPLT187 103/wlTyyhur437-894Yip [facility] HospitalComment on above: Performed By: #### MG, BMP, PHOS #### [facility] [address] [place] [address] Dr. David MaganaRBC4.15 106/ulCritically low4.70-6.10The [facility] HospitalComment on above:Performed By: #### MG, BMP, PHOS #### [facility] [address] [place] [address] Dr. David MaganaWBC7.5 103/ulNormal4.0-11.0The [facility] HospitalComment on above: Performed By: #### MG, BMP, PHOS #### [facility] [address] [place] [address] Dr. Yilan ChangPROF 14(COMP METB)on 05-44-6853Qexvfgb [Mass/Vol]3.5 g/dLNormal 3.4-5.0The [facility] HospitalComment on above:Performed By: #### A1C #### [facility] [address] [place] [address] Dr. David MaganaAlbumin/Globulin [Mass ratio]1.1 {ratio}NormalThe [facility] HospitalComment on above:Performed By: #### A1C #### [facility] [address] [place] [address] Dr. David HartP [Catalytic activity/Vol]76 U/IDkikfb96-923Fzd [facility] HospitalComment on above:Performed By: #### A1C #### [facility] [address] [place] [address] Dr. David HartT [Catalytic activity/Vol]23 U/IPrzqwn36-32Vip [facility] HospitalComment on above:Performed By: #### A1C #### [facility] [address] [place] [address] Dr. David Bacaon gap [Moles/Vol]13.1 mmol/LNormalThe [facility] Comment on above:Performed By: #### A1C #### [facility] [address] [place] [address] Dr. David MaganaAST [Catalytic activity/Vol]17 U/ZZfggna96-76Ora [facility] HospitalComment on above:Performed By: #### A1C #### [facility] [address] [place] [address] Dr. David MaganaBilirubin [Mass/Vol]0.7 mg/dLNormal0.2-1.0The [facility] Comment on above:Performed By: #### A1C #### [facility] [address] [place] [address] Dr. David MaganaCalcium [Mass/Vol]9.0 mg/dLNormal8.5-10.1The [facility] Comment on above:Performed By: #### A1C #### [facility] [address] [place] [address] Dr. David MaganaChloride [Moles/Vol]105 mmol/LRajiwb23-471Hty [facility] Comment on above:Performed By: #### A1C #### [facility] [address] [place] [address] Dr. David MaganaCO2 [Moles/Vol]29.0 mmol/ZLsombe45.0-32.0The [facility] Comment on above:Performed By: #### A1C #### [facility] [address] [place] [address] Dr. David MaganaCreatinine [Mass/Vol]1.77 mg/dLCritically high0.70-1.30The [facility] HospitalComment on above:Performed By: #### A1C #### [facility] [address] [place] [address] Dr. David EvansGFR-AF PAYSUREL73 mL/min/1.81o8Kcviqhdwso low>=60The [facility] HospitalComment on above:Performed By: #### A1C #### [facility] [address] [place] [address] Dr. David EvansGFR-NON AF XSIETMJY06 mL/min/1.39u4Dschqskymy low>=60The [facility] HospitalComment on above:Performed By: #### A1C #### [facility] [address] [place] [address] Dr. David MaganaGlobulin (S) [Mass/Vol]3.3 g/dLNormalThe [facility] HospitalComment on above:Performed By: #### A1C #### [facility] [address] [place] [address] Dr. David MaganaGlucose [Mass/Vol]135 mg/dLCritically rogn55-390Ehz [facility] HospitalComment on above:Performed By: #### A1C #### [facility] [address] [place] [address] Dr. David MaganaPotassium [Moles/Vol]4.1 mmol/LNormal3.5-5.1The [facility] Comment on above:Performed By: #### A1C #### [facility] [address] [place] [address] Dr. David MaganaProtein [Mass/Vol]6.8 g/dLNormal6.4-8.2[facility] Comment on above:Performed By: #### A1C #### [facility] [address] [place] [address] Dr. David Ritchieum [Moles/Vol]143 mmol/AAimbrl428-004NrlWilson Health Comment on above:Performed By: #### A1C #### [facility] [address] [place] [address] Dr. David Gomez nitrogen [Mass/Vol]31.0 mg/dLCritically high7.0-18.0Wilson HealthComment on above:Performed By: #### A1C #### [facility] [address] [place] [address] Dr. David Gomez nitrogen/Creatinine [Mass ratio]17.5 mg/mgNormalThMercy Health Willard HospitalComment on above:Performed By: #### A1C #### [facility] [address] [place] [address] Dr. David Anna 05-99-6840VNH Coag (PPP) [Relative time]0.99 {INR} NormalWilson HealthComment on above:Performed By: #### A1C #### [facility] [address] [place] [address] Dr. David Rogers GUIDELINESSEE BELOWNoalThMercy Health Willard HospitalComment on above:Result Comment: DESIRED INR: 2.0 - 3.0 CONDITIONS NOT LISTED BELOW 2.5 - 3.5 FOR PROSTHETIC HEART VALVE REPLACEMENT 2.5 - 3.5 RECURRENT THROMBOSIS Performed By: #### A1C #### [facility] [address] [place] [address] Dr. David MaganaPT Coag (PPP) [Time]10.5 sNormal9.0-11.6The [facility] Comment on above:Performed By: #### A1C #### [facility] [address] [place] [address] Dr. David Ayala 98-97-6874lMFK Coag (Bld) [Time]33.0 aNyolxy93.3-36.2The [facility] HospitalComment on above:Performed By: #### POCGLUC #### [facility] [address] [address] [address] David MaganaALBUMINon 14-77-3193Zzekgib [Mass/Vol]3.6 g/dLNormal3.4-5.0The [facility] HospitalComment on above:Performed By: #### CBC #### [facility] [address] [address] [address] David MaganaGLYCOHEMOGLOBIN A1Con 58-26-6011RZP RECOMMENDATIONSEE BELOWNormal The [facility] HospitalComkalamazoo [facility] on above:Result Comment: ADA RECOMMENDED LIMIT 4.0 - 6.0 ADA THERAPEUTIC TARGET < 7.0 ACTION SUGGESTED > 7.0Performed By: #### POCGLUC #### [facility] [address] [place] [address] Dr. David MaganaGlucose [Mass/Vol]140 mg/dLNormalThe [facility] HospitalComment on above:Performed By: #### POCGLUC #### [facility] [address] [address] [address] David MaganaHbA1c (Bld) [Mass fraction]6.5 %Critically high4.5-6.2The [facility] HospitalComkalamazoo psychiatric hospital on above:Performed By: #### POCGLUC #### [facility] [address] [place] [address] Dr. David MaganaMAGNESIUMon 03-10-0164Yxaofwwil [Mass/Vol]2.3 mg/dLNormal1.8-2.4 The [facility] HospitalComkalamazoo psychiatric hospital on above:Performed By: #### POCGLUC #### [facility] [address] [place] [address] Dr. David MaganaPROF CHEM 8 (BAS METB)on 54-64-1351Stxzd gap [Moles/Vol]13.2 mmol/LNormalWilson HealthComkalamazoo psychiatric hospital on above:Performed By: #### POCGLUC #### [facility] [address] [place] [address] Dr. David MaganaCalcium [Mass/Vol]9.0 mg/dLNormal8.5-10.1The [facility] Comment on above:Performed By: #### POCGLUC #### [facility] [address] [address] [address] David MaganaChloride [Moles/Vol]105 mmol/MUfsbmh54-281Xrd [facility] Comment on above:Performed By: #### POCGLUC #### [facility] [address] [address] [address] David MaganaCO2 [Moles/Vol]28.9 mmol/MOlskow73.0-32.0The [facility] Comment on above:Performed By: #### POCGLUC #### [facility] [address] [place] [address] Dr. David MaganaCreatinine [Mass/Vol]1.66 mg/dLCritically high0.70-1.30The [facility] HospitalComment on above:Performed By: #### POCGLUC #### [facility] [address] [place] [address] Dr. Hernandez ChangEGFR-AF DUZEFFDW61 mL/min/1.93b6Msyhyrvvod low>=60The [facility] HospitalComment on above:Performed By: #### POCGLUC #### [facility] [address] [place] [address] Dr. David EvansGFR-NON AF JBUKFIGG37 mL/min/1.00p9Zuavvbfgqp low>=60The [facility] HospitalComment on above:Performed By: #### POCGLUC #### [facility] [address] [place] [address] Dr. David MaganaGlucose [Mass/Vol]123 mg/dLCritically gtze75-418Cqs [facility] HospitalComment on above:Performed By: #### POCGLUC #### [facility] [address] [place] [address] Dr. David MaganaPotassium [Moles/Vol]4.1 mmol/LNormal3.5-5.1[facility] Comment on above:Performed By: #### POCGLUC #### [facility] [address] [place] [address] Dr. Yilan ChangSodium [Moles/Vol]143 mmol/UKtqrii757-688Wft [facility] Comment on above:Performed By: #### POCGLUC #### [facility] [address] [place] [address] Dr. David Gomez nitrogen [Mass/Vol]29.0 mg/dLCritically high7.0-18.0The Holzer HospitalComment on above:Performed By: #### POCGLUC #### [facility] [address] [place] [address] Dr. David Gomez nitrogen/Creatinine [Mass ratio]17.5 mg/mgNormalThe [facility]zer HospitalComment on above:Performed By: #### POCGLUC #### [facility] [address] [place] [address] Dr. David Wan T PROTEIN CREAT RATIOon [id number] TOTAL PROTEIN<6.0 Normal<=12.0The [facility] HospitalComment on above:Performed By: #### MG, BMP, PHOS #### [facility] [address] [place] [address] Dr. David Wan CREAT41.21 mg/oBBjssdg35.00-300.00[facility] Comment on above:Performed By: #### MG, BMP, PHOS #### [facility] [address] [place] [address] Dr. David MaganaALBUMINon 86-30-6595Ykxbahd [Mass/Vol]3.3 g/dLCritically low 3.4-5.0The [facility] HospitalComment on above:Performed By: #### CBC #### [facility] [address] [place] [address] Dr. David MaganaCREATININE URINEon 29-25-8185KHCZP CREAT19.69 mg/dLCritically low 20.00-300.00The [facility] HospitalComment on above:Performed By: #### MG, BMP, PHOS #### [facility] [address] [place] [address] Dr. David MaganaHEMOGLOBINon [id number] (Bld) [Mass/Vol]14.9 g/dLNormal 14.0-18.0The [facility] HospitalComment on above:Performed By: #### MG, BMP, PHOS #### [facility] [address] [place] [address] Dr. David MaganaMAGNESIUMon [id number] [Mass/Vol]2.2 mg/dLNormal1.8-2.4 The [facility] HospitalComment on above:Performed By: #### CBC #### [facility] [address] [place] [address] Dr. David MagaanPHOSPHORUSon [id number] [Mass/Vol]3.9 mg/dLNormal2.6-4.7 The [facility] HospitalComment on above:Performed By: #### CBC #### [facility] [address] [place] [address] Dr. David MaganaPROF CHEM 8 (BAS METB)on 51-61-9861Igeil gap [Moles/Vol]11.9 mmol/LNormalThe [facility] HospitalComment on above:Performed By: #### CBC #### [facility] [address] [place] [address] Dr. David MaganaCalcium [Mass/Vol]8.8 mg/dLNormal8.5-10.1[facility] Comment on above:Performed By: #### CBC #### [facility] [address] [place] [address] Dr. David MaganaChloride [Moles/Vol]104 mmol/LOljfmh29-939Ccn [facility] Comment on above:Performed By: #### CBC #### [facility] [address] [place] [address] Dr. David MaganaCO2 [Moles/Vol]27.4 mmol/MJggqnb48.0-32.0[facility] Comment on above:Performed By: #### CBC #### [facility] [address] [place] [address] Dr. David MaganaCreatinine [Mass/Vol]1.68 mg/dLCritically high0.70-1.30The [facility] HospitalComment on above:Performed By: #### CBC #### [facility] [address] [address] [address] David EvansGFR-AF ZMEJYZVL46 mL/min/1.98n4Ewuixkozri low>=60The [facility] Companyment on above:Performed By: #### CBC #### [facility] [address] [address] [address] David EvansGFR-NON AF ZCPJYHTT35 mL/min/1.22r0Gwwcrzmpzs low>=60The [facility] on above:Performed By: #### CBC #### [facility] [address] [address] [address] David MaganaGlucose [Mass/Vol]212 mg/dLCritically lqyo71-259Fml [facility] on above:Performed By: #### CBC #### [facility] [address] [address] [address] David MaganaPotassium [Moles/Vol]4.3 mmol/LNormal3.5-5.1[facility] Comment on above:Performed By: #### CBC #### [facility] [address] [address] [address] David MaganaSodium [Moles/Vol]139 mmol/NCvyazy713-845LbwWilson Health Comment on above:Performed By: #### CBC #### [facility] [address] [address] [address] David MaganaUrea nitrogen [Mass/Vol]25.0 mg/dLCritically high7.0-18.0The [facility] on above:Performed By: #### CBC #### [facility] [address] [address] [address] David MaganaUrea nitrogen/Creatinine [Mass ratio]14.9 mg/mgNormalThe [facility] on above:Performed By: #### CBC #### [facility] [address] [address] [address] David MaganaPROTEIN RAND URINEon [id number] PROT<5.0Normal<=11.9The [facility] HospitalComment on above:Performed By: #### MG, BMP, PHOS #### [facility] [address] [address] [address] David Mitchell KARI DOP LEG BILon [id number] KARI DOP LEG BILEXAMINATION: US KARI DOP [...] Electronically authenticated by: CLOVER PEREZ Date: 2022-11-02 16:[facility] HospitalBNPon [id number] peptide B (Bld) [Mass/Vol]2143.0 pg/mLCritically high<=1,800.0The [facility] HospitalComment on above:Performed By: #### MGERICK, PHOS #### [facility] [address] [address] [address] David KovacsC AUTO DIFFon [id number] #0.0 103/ulNormal0.0-0.1The [facility] HospitalComment on above:Performed By: #### A1C #### [facility] [address] [address] [address] David MaganaBasophils/100 WBC (Bld)0.3 %Normal0.2-2.0[facility] Comment on above:Performed By: #### A1C #### [facility] [address] [address] [address] David Colorado #0.3 103/ulNormal0.0-0.7The [facility] HospitalComment on above: Performed By: #### A1C #### [facility] [address] [address] [address] David Evansosinophils/100 WBC (Bld)2.4 %Normal0.9-7.0[facility] Comment on above:Performed By: #### A1C #### [facility] [address] [address] [address] David Evansrythrocyte distribution width (RBC) [Ratio]13.4 %Lshcam61.0-15.0 The [facility] HospitalComment on above:Performed By: #### A1C #### [facility] [address] [place] [address] Dr. David MaganaHematocrit (Bld) [Volume fraction]42.7 %Bpbqtq96.0-54.0The [facility] HospitalComment on above:Performed By: #### A1C #### [facility] [address] [place] [address] Dr. David MaganaHemoglobin (Bld) [Mass/Vol]14.2 g/fXPzttlj74.0-18.0The [facility] HospitalComment on above:Performed By: #### A1C #### [facility] [address] [place] [address] Dr. David Gerardo #0.18 10e3/ulCritically high0.00-0.03[facility] Comment on above:Performed By: #### A1C #### [facility] [address] [place] [address] Dr. David Gerardo %1.6 %Critically high0.0-0.5ThMercy Health Willard HospitalComment on above:Performed By: #### A1C #### [facility] [address] [place] [address] Dr. David Patiño #0.9 103/ulCritically low1.2-3.8[facility] Comment on above:Performed By: #### A1C #### [facility] [address] [place] [address] Dr. David Marshallhocytes/100 WBC (Bld)8.1 %Critically low20.5-60.0[facility] HealthComment on above:Performed By: #### A1C #### [facility] [address] [place] [address] Dr. David DennisonUAL DIFF REQNONormalThe [facility]zer HospitalComment on above: Performed By: #### A1C #### [facility] [address] [address] [address] David Faulkner (RBC) [Entitic mass]33.3 fdTzrpgq10.9-34.0The [facility] HospitalComment on above:Performed By: #### A1C #### [facility] [address] [place] [address] Dr. David Faulkner (RBC) [Mass/Vol]33.3 g/cOCacjvt13.9-35.2The [facility] HospitalComment on above:Performed By: #### A1C #### [facility] [address] [place] [address] Dr. David Topete (RBC) [Entitic vol]100.2 fLCritically high80.0-94.0The [facility] HospitalComment on above:Performed By: #### A1C #### [facility] [address] [place] [address] Dr. David Santos #1.2 103/ulCritically high0.3-0.8ThMercy Health [facility] Comment on above:Performed By: #### A1C #### [facility] [address] [place] [address] Dr. David Dickensocytes/100 WBC (Bld)10.5 %Normal1.7-12.0[facility] Comment on above:Performed By: #### A1C #### [facility] [address] [place] [address] Dr. David Hartley #8.9 103/ulCritically high1.4-6.5ThMercy Health Will[facility] Hospital Comment on above:Performed By: #### A1C #### [facility] [address] [place] [address] Dr. David Sargentutrophils/100 WBC (Bld)77.1 %Critically high43.0-75.0The [facility] HospitalComment on above:Performed By: #### A1C #### [facility] [address] [place] [address] Dr. David Ortegalet mean volume (Bld) [Entitic vol]11.3 fLNormal9.5-13.5The [facility] HospitalComment on above:Performed By: #### A1C #### [facility] [address] [place] [address] Dr. David MaganaPLT175 103/lkDgepwx350-640Ktl [facility] HospitalComment on above: Performed By: #### A1C #### [facility] [address] [place] [address] Dr. David MaganaRBC4.26 106/ulCritically low4.70-6.10The [facility] HospitalComment on above:Performed By: #### A1C #### [facility] [address] [place] [address] Dr. David MaganaWBC11.5 103/ulCritically high4.0-11.0The [facility] HospitalComment on above:Performed By: #### A1C #### [facility] [address] [place] [address] Dr. David RaygozaF 14(COMP METB)on 36-69-2636Ruzxxvm [Mass/Vol]2.6 g/dL Critically low3.4-5.0The [facility] on above:Performed By: #### MG, BMP, PHOS #### [facility] [address] [place] [address] Dr. David MaganaAlbumin/Globulin [Mass ratio]0.9 {ratio}NormalThe [facility] on above:Performed By: #### MG, BMP, PHOS #### [facility] [address] [place] [address] Dr. David HartP [Catalytic activity/Vol]49 U/ERhjvfr53-142Ygo [facility]Comkal[facility] on above:Performed By: #### MG, BMP, PHOS #### [facility] [address] [place] [address] Dr. David Ag [Catalytic activity/Vol]25 U/BXfrobv61-36Edi [facility]Comkal[facility] on above:Performed By: #### MG, BMP, PHOS #### [facility] [address] [address] [address] David Camargo gap [Moles/Vol]12.8 mmol/LNormalWilson Health Comment on above:Performed By: #### MG, BMP, PHOS #### [facility] [address] [address] [address] David MaganaAST [Catalytic activity/Vol]9 U/LCritically jem99-81Ame [facility] HospitalComment on above:Performed By: #### MG, BMP, PHOS #### [facility] [address] [place] [address] Dr. David MaganaBilirubin [Mass/Vol]0.5 mg/dLNormal0.2-1.0[facility] Comment on above:Performed By: #### MG, BMP, PHOS #### [facility] [address] [place] [address] Dr. David MaganaCalcium [Mass/Vol]8.3 mg/dLCritically low8.5-10.1The [facility] HospitalComment on above:Performed By: #### MG, BMP, PHOS #### [facility] [address] [place] [address] Dr. David MaganaChloride [Moles/Vol]105 mmol/JXwykms29-391KedWilson Health Comment on above:Performed By: #### MG, BMP, PHOS #### [facility] [address] [address] [address] David MaganaCO2 [Moles/Vol]24.2 mmol/JDnzfic27.0-32.0[facility] Comment on above:Performed By: #### MG, BMP, PHOS #### [facility] [address] [address] [address] David MaganaCreatinine [Mass/Vol]1.28 mg/dLNormal0.70-1.30The [facility] HospitalComment on above:Performed By: #### MG, BMP, PHOS #### [facility] [address] [address] [address] David EvansGFR-AF MALTESE>60Normal>=60The [facility] HospitalComment on above:Performed By: #### MG, BMP, PHOS #### [facility] [address] [place] [address] Dr. David EvansGFR-NON AF KZENZLUM45 mL/min/1.50i6Ysnnklhpxt low>=60The [facility] HospitalComment on above:Performed By: #### MG, BMP, PHOS #### [facility] [address] [place] [address] Dr. David MaganaGlobulin (S) [Mass/Vol]2.9 g/dLNormalThe [facility] HospitalComment on above:Performed By: #### MG, BMP, PHOS #### [facility] [address] [place] [address] Dr. David MaganaGlucose [Mass/Vol]205 mg/dLCritically qtfy19-410Yky [facility] HospitalComment on above:Performed By: #### MG, BMP, PHOS #### [facility] [address] [place] [address] Dr. David MaganaPotassium [Moles/Vol]4.0 mmol/LNormal3.5-5.1[facility] Comment on above:Performed By: #### MG, BMP, PHOS #### [facility] [address] [place] [address] Dr. David MaganaProtein [Mass/Vol]5.5 g/dLCritically low6.4-8.2[facility] HealthComment on above:Performed By: #### MG, BMP, PHOS #### [facility] [address] [place] [address] Dr. David MaganaSodium [Moles/Vol]138 mmol/IMgruyc987-210Zwt [facility] Comment on above:Performed By: #### MG, BMP, PHOS #### [facility] [address] [place] [address] Dr. David MaganaUrea nitrogen [Mass/Vol]36.0 mg/dLCritically high7.0-18.0The [facility] HospitalComment on above:Performed By: #### MG, BMP, PHOS #### [facility] [address] [place] [address] Dr. David Gomez nitrogen/Creatinine [Mass ratio]28.1 mg/mgNormalThe [facility] HospitalComment on above:Performed By: #### MG, BMP, PHOS #### [facility] [address] [place] [address] Dr. David Chau 53-57-5034Fpcbohhfyyb peptide B (Bld) [Mass/Vol]3485.0 pg/mLCritically high<=1,800.0The [facility] HospitalComment on above:Result Comment: repeatedPerformed By: #### A1C #### [facility] [address] [place] [address] Dr. David Frazier AUTO DIFFon 07-02-3649HVHX #0.0 103/ulNormal0.0-0.1The [facility] HospitalComment on above:Performed By: #### CBC #### [facility] [address] [place] [address] Dr. David MaganaBasophils/100 WBC (Bld)0.3 %Normal0.2-2.0[facility] Comment on above:Performed By: #### CBC #### [facility] [address] [place] [address] Dr. David Colorado #0.2 103/ulNormal0.0-0.7The [facility] HospitalComment on above: Performed By: #### CBC #### [facility] [address] [place] [address] Dr. David Evansosinophils/100 WBC (Bld)1.9 %Normal0.9-7.0[facility] Comment on above:Performed By: #### CBC #### [facility] [address] [place] [address] Dr. David Evansrythrocyte distribution width (RBC) [Ratio]13.4 %Nvglfu00.0-15.0 The [facility] HospitalComment on above:Performed By: #### CBC #### [facility] [address] [place] [address] Dr. David Molinaatocrit (Bld) [Volume fraction]42.5 %Axmqcp95.0-54.0The [facility] HospitalComment on above:Performed By: #### CBC #### [facility] [address] [place] [address] Dr. David MaganaHemoglobin (Bld) [Mass/Vol]14.2 g/tOZhokyc44.0-18.0The [facility] HospitalComment on above:Performed By: #### CBC #### [facility] [address] [place] [address] Dr. David Gerardo #0.22 10e3/ulCritically high0.00-0.03The [facility] Comment on above:Performed By: #### CBC #### [facility] [address] [place] [address] Dr. David Gerardo %2.1 %Critically high0.0-0.5The [facility] HospitalComment on above:Performed By: #### CBC #### [facility] [address] [place] [address] Dr. David Patiño #0.8 103/ulCritically low1.2-3.8The [facility] Comment on above:Performed By: #### CBC #### [facility] [address] [place] [address] Dr. David Ramosmphocytes/100 WBC (Bld)7.7 %Critically low20.5-60.0The [facility] HospitalComment on above:Performed By: #### CBC #### [facility] [address] [place] [address] Dr. David DennisonUAL DIFF REQNONormalThe [facility] HospitalComment on above: Performed By: #### CBC #### [facility] [address] [place] [address] Dr. David Torres (RBC) [Entitic mass]33.0 mfBgegft94.9-34.0The [facility] HospitalComment on above:Performed By: #### CBC #### [facility] [address] [place] [address] Dr. David Mireles (RBC) [Mass/Vol]33.4 g/cCIwgnzw36.9-35.2The [facility] HospitalComment on above:Performed By: #### CBC #### [facility] [address] [address] [address] David Faulkner (RBC) [Entitic vol]98.8 fLCritically high80.0-94.0The [facility] HospitalComment on above:Performed By: #### CBC #### [facility] [address] [place] [address] Dr. David Santos #1.0 103/ulCritically high0.3-0.8ThMer[facility] Comment on above:Performed By: #### CBC #### [facility] [address] [place] [address] Dr. David Dickensocytes/100 WBC (Bld)9.7 %Normal1.7-12.0[facility] Comment on above:Performed By: #### CBC #### [facility] [address] [place] [address] Dr. David Hartley #8.1 103/ulCritically high1.4-6.5ThMercy Health [facility] Comment on above:Performed By: #### CBC #### [facility] [address] [place] [address] Dr. David Sargentutrophils/100 WBC (Bld)78.3 %Critically high43.0-75.0The [facility] HospitalComment on above:Performed By: #### CBC #### [facility] [address] [place] [address] Dr. David Ortegalet mean volume (Bld) [Entitic vol]10.7 fLNormal9.5-13.5The [facility] HospitalComment on above:Performed By: #### CBC #### [facility] [address] [place] [address] Dr. David MaganaPLT177 103/tsPdobzc506-544Uzf [facility] HospitalComment on above: Performed By: #### CBC #### [facility] [address] [place] [address] Dr. David MaganaRBC4.30 106/ulCritically low4.70-6.10The [facility] HospitalComment on above:Performed By: #### CBC #### [facility] [address] [place] [address] Dr. David MaganaWBC10.4 103/ulNormal4.0-11.0The [facility] HospitalComment on above:Performed By: #### CBC #### [facility] [address] [place] [address] Dr. David MaganaPROF 14(COMP METB)on 24-44-5069Tdyzstv [Mass/Vol]2.6 g/dL Critically low3.4-5.0The [facility] HospitalComment on above:Performed By: #### A1C #### [facility] [address] [place] [address] Dr. David MaganaAlbumin/Globulin [Mass ratio]1.0 {ratio}NormalThe [facility] HospitalComment on above:Performed By: #### A1C #### [facility] [address] [place] [address] Dr. David Oates [Catalytic activity/Vol]50 U/CIjddnk00-325Uhp [facility] Companyment on above:Performed By: #### A1C #### [facility] [address] [place] [address] Dr. David Ag [Catalytic activity/Vol]28 U/TEdqcak46-31Ypi [facility] HospitalComment on above:Performed By: #### A1C #### [facility] [address] [place] [address] Dr. David Camargo gap [Moles/Vol]11.4 mmol/LNormalThe [facility] on above:Performed By: #### A1C #### [facility] [address] [place] [address] Dr. David Iyer [Catalytic activity/Vol]13 U/LCritically jqq55-68Jrf [facility] HospitalComment on above:Performed By: #### A1C #### [facility] [address] [place] [address] Dr. David MaganaBilirubin [Mass/Vol]0.4 mg/dLNormal0.2-1.0[facility] Comment on above:Performed By: #### A1C #### [facility] [address] [address] [address] David MaganaCalcium [Mass/Vol]8.4 mg/dLCritically low8.5-10.1The [facility] HospitalComment on above:Performed By: #### A1C #### [facility] [address] [address] [address] David MaganaChloride [Moles/Vol]107 mmol/FEaqdka03-307Fed [facility] Comment on above:Performed By: #### A1C #### [facility] [address] [address] [address] David MaganaCO2 [Moles/Vol]24.6 mmol/XQmnrwt53.0-32.0The [facility] Comment on above:Performed By: #### A1C #### [facility] [address] [address] [address] David MaganaCreatinine [Mass/Vol]1.26 mg/dLNormal0.70-1.30The [facility] HospitalComment on above:Performed By: #### A1C #### [facility] [address] [address] [address] David EvansGFR-AF MALTESE>60Normal>=60The [facility] HospitalComment on above:Performed By: #### A1C #### [facility] [address] [address] [address] David EvansGFR-NON AF THEZIVGG46 mL/min/1.06q9Ccyhrqpvaa low>=60The [facility] HospitalComment on above:Performed By: #### A1C #### [facility] [address] [address] [address] David MaganaGlobulin (S) [Mass/Vol]2.7 g/dLNormalThe [facility] HospitalComment on above:Performed By: #### A1C #### [facility] [address] [address] [address] David MaganaGlucose [Mass/Vol]203 mg/dLCritically ksrs72-303Fmm [facility] HospitalComment on above:Performed By: #### A1C #### [facility] [address] [address] [address] David MaganaPotassium [Moles/Vol]4.0 mmol/LNormal3.5-5.1The [facility] Comment on above:Performed By: #### A1C #### [facility] [address] [address] [address] David MaganaProtein [Mass/Vol]5.3 g/dLCritically low6.4-8.2The [facility] HospitalComment on above:Performed By: #### A1C #### [facility] [address] [place] [address] Dr. David MaganaSodium [Moles/Vol]139 mmol/AHdcvin657-407Slm [facility] Comment on above:Performed By: #### A1C #### [facility] [address] [place] [address] Dr. David MaganaUrea nitrogen [Mass/Vol]33.0 mg/dLCritically high7.0-18.0The [facility] HospitalComment on above:Performed By: #### A1C #### [facility] [address] [place] [address] Dr. David Gomez nitrogen/Creatinine [Mass ratio]26.2 mg/mgNormalThe [facility] HospitalComment on above:Performed By: #### A1C #### [facility] [address] [place] [address] Dr. David Chau 32-25-7948Vrtpqtwyfnf peptide B (Bld) [Mass/Vol]7478.0 pg/mLCritically high<=1,800.0The [facility] HospitalComment on above:Performed By: #### A1C #### [facility] [address] [place] [address] Dr. David Frazier AUTO DIFFon 21-73-0696GSJS #0.1 103/ulNormal0.0-0.1The [facility] HospitalComment on above:Performed By: #### MG, BMP, PHOS #### [facility] [address] [place] [address] Dr. David MaganaBasophils/100 WBC (Bld)0.8 %Normal0.2-2.0The [facility] Comment on above:Performed By: #### MG, BMP, PHOS #### [facility] [address] [place] [address] Dr. David Colorado #0.1 103/ulNormal0.0-0.7The [facility] HospitalComment on above: Performed By: #### MG, BMP, PHOS #### [facility] [address] [place] [address] Dr. David Evansosinophils/100 WBC (Bld)0.6 %Critically low0.9-7.0The [facility] HospitalComment on above:Performed By: #### MG, BMP, PHOS #### [facility] [address] [place] [address] Dr. David Evansrythrocyte distribution width (RBC) [Ratio]13.4 %Kfmbmu00.0-15.0 The [facility] HospitalComment on above:Performed By: #### MG, BMP, PHOS #### [facility] [address] [place] [address] Dr. David MaganaHematocrit (Bld) [Volume fraction]43.2 %Vuizkh95.0-54.0The [facility] HospitalComment on above:Performed By: #### MG, BMP, PHOS #### [facility] [address] [place] [address] Dr. David MaganaHemoglobin (Bld) [Mass/Vol]14.2 g/lJXgfhzn16.0-18.0The [facility] on above:Performed By: #### MG, BMP, PHOS #### [facility] [address] [place] [address] Dr. David Gerardo #0.21 10e3/ulCritically high0.00-0.03The [facility] Comment on above:Performed By: #### MG, BMP, PHOS #### [facility] [address] [address] [address] David Gerardo %2.0 %Critically high0.0-0.5The [facility] HospitalComment on above:Performed By: #### MG, BMP, PHOS #### [facility] [address] [place] [address] Dr. David Patiño #0.8 103/ulCritically low1.2-3.8The [facility] Comment on above:Performed By: #### MG, BMP, PHOS #### [facility] [address] [place] [address] Dr. David Marshallhocytes/100 WBC (Bld)7.7 %Critically low20.5-60.0The [facility] HospitalComment on above:Performed By: #### MG, BMP, PHOS #### [facility] [address] [place] [address] Dr. David DennisonUAL DIFF REQNONormalThe [facility] HospitalComment on above: Performed By: #### MG, BMP, PHOS #### [facility] [address] [place] [address] Dr. David Faulkner (RBC) [Entitic mass]33.2 oqZhfpsk91.9-34.0The [facility] HospitalComment on above:Performed By: #### MG, BMP, PHOS #### [facility] [address] [place] [address] Dr. David Faulkner (RBC) [Mass/Vol]32.9 g/bLNeryyc73.9-35.2The [facility] HospitalComment on above:Performed By: #### MG, BMP, PHOS #### [facility] [address] [place] [address] Dr. David Faulkner (RBC) [Entitic vol]100.9 fLCritically high80.0-94.0The [facility] HospitalComment on above:Performed By: #### MG, BMP, PHOS #### [facility] [address] [place] [address] Dr. David Santos #1.0 103/ulCritically high0.3-0.8[facility] Comment on above:Performed By: #### MG, BMP, PHOS #### [facility] [address] [place] [address] Dr. David Dickensocytes/100 WBC (Bld)10.0 %Normal1.7-12.0[facility] Comment on above:Performed By: #### MG, BMP, PHOS #### [facility] [address] [place] [address] Dr. David Hartley #8.1 103/ulCritically high1.4-6.5[facility] Comment on above:Performed By: #### MG, BMP, PHOS #### [facility] [address] [place] [address] Dr. David Sargentutrophils/100 WBC (Bld)78.9 %Critically high43.0-75.0The [facility] HospitalComment on above:Performed By: #### MG, BMP, PHOS #### [facility] [address] [place] [address] Dr. David Vigil mean volume (Bld) [Entitic vol]10.8 fLNormal9.5-13.5The [facility] HospitalComment on above:Performed By: #### MG, BMP, PHOS #### [facility] [address] [place] [address] Dr. David MaganaPLT172 103/mwAwdedg472-355Ixq [facility] HospitalComment on above: Performed By: #### MG, BMP, PHOS #### [facility] [address] [place] [address] Dr. David MaganaRBC4.28 106/ulCritically low4.70-6.10The [facility] HospitalComment on above:Performed By: #### MG, BMP, PHOS #### [facility] [address] [place] [address] Dr. David MaganaWBC10.3 103/ulNormal4.0-11.0The [facility] Companyment on above:Performed By: #### ERICK ESPINOSA PHOS #### [facility] [address] [place] [address] Dr. David Varghese URINEon [id number] URINEIsolate 1 Escherichia coli 15,000 cfu/mL of [...] <=16 S F Trimethoprim/Sulfamethoxazole >=[address] [facility] on above:Performed By: #### ERICK ESPINOSA PHOS #### [facility] [address] [place] [address] Dr. David Blair 14(COMP METB)on 84-17-6942Vnlgyfx [Mass/Vol]2.6 g/dL Critically low3.4-5.0The [facility] on above:Performed By: #### A1C #### [facility] [address] [place] [address] Dr. David MaganaAlbumin/Globulin [Mass ratio]0.9 {ratio}NormalThe [facility] on above:Performed By: #### A1C #### [facility] [address] [place] [address] Dr. David Oates [Catalytic activity/Vol]48 U/TRuvljg41-360Lpj [facility] on above:Performed By: #### A1C #### [facility] [address] [place] [address] Dr. David Ag [Catalytic activity/Vol]27 U/RXfrnoi64-72Azd [facility] on above:Performed By: #### A1C #### [facility] [address] [address] [address] David Camargo gap [Moles/Vol]13.4 mmol/LNormalThe [facility] Comment on above:Performed By: #### A1C #### [facility] [address] [address] [address] David MaganaAST [Catalytic activity/Vol]22 U/KAtdlmd31-27Ekp [facility] HospitalComment on above:Performed By: #### A1C #### [facility] [address] [address] [address] David MaganaBilirubin [Mass/Vol]0.5 mg/dLNormal0.2-1.0[facility] Comment on above:Performed By: #### A1C #### [facility] [address] [address] [address] David MaganaCalcium [Mass/Vol]8.3 mg/dLCritically low8.5-10.1The [facility] HospitalComment on above:Performed By: #### A1C #### [facility] [address] [place] [address] Dr. David MaganaChloride [Moles/Vol]105 mmol/CEfsucv65-764UkiWilson Health Comment on above:Performed By: #### A1C #### [facility] [address] [place] [address] Dr. Dvaid MaganaCO2 [Moles/Vol]21.0 mmol/TTahjog66.0-32.0[facility] Comment on above:Performed By: #### A1C #### [facility] [address] [place] [address] Dr. David MaganaCreatinine [Mass/Vol]1.38 mg/dLCritically high0.70-1.30The [facility] HospitalComment on above:Performed By: #### A1C #### [facility] [address] [address] [address] Hernandez ChangEGFR-AF YYYADEIE79 mL/min/1.68h9Vxmvae>=60[facility] Comment on above:Performed By: #### A1C #### [facility] [address] [place] [address] Dr. David EvansGFR-NON AF MGTGTHXE57 mL/min/1.46w0Dfcrrhaypd low>=60The [facility] Companyment on above:Performed By: #### A1C #### [facility] [address] [address] [address] David MaganaGlobulin (S) [Mass/Vol]2.8 g/dLNoMercy Health St. Rita's Medical CenterComment on above:Performed By: #### A1C #### [facility] [address] [address] [address] David MaganaGlucose [Mass/Vol]156 mg/dLCritically cjdh80-225Ilr [facility] HospitalComment on above:Performed By: #### A1C #### [facility] [address] [address] [address] David MaganaPotassium [Moles/Vol]4.4 mmol/LNormal3.5-5.1[facility] Comment on above:Performed By: #### A1C #### [facility] [address] [address] [address] David MaganaProtein [Mass/Vol]5.4 g/dLCritically low6.4-8.2The [facility] HospitalComment on above:Performed By: #### A1C #### [facility] [address] [address] [address] David MaganaSodium [Moles/Vol]135 mmol/LCritically geu426-308Uau [facility] HospitalComment on above:Performed By: #### A1C #### [facility] [address] [address] [address] David MaganaUrea nitrogen [Mass/Vol]40.0 mg/dLCritically high7.0-18.0The [facility] HospitalComment on above:Performed By: #### A1C #### [facility] [address] [address] [address] David MaganaUrea nitrogen/Creatinine [Mass ratio]29.0 mg/mgNoMercy Health St. Rita's Medical CenterComment on above:Performed By: #### A1C #### [facility] [address] [address] [address] David Chau 13-93-3680Vogfiuswdmj peptide B (Bld) [Mass/Vol]09501.0 pg/mLCritically high<=1,800.0The [facility] HospitalComment on above:Performed By: #### CVDTBH #### [facility] [address] [address] [address] David Frazier AUTO DIFFon [id number] #0.0 103/ulNormal0.0-0.1The [facility] HospitalComment on above:Performed By: #### CBC #### [facility] [address] [address] [address] David MaganaBasophils/100 WBC (Bld)0.3 %Normal0.2-2.0[facility] Comment on above:Performed By: #### CBC #### [facility] [address] [address] [address] David Colorado #0.0 103/ulNormal0.0-0.7The [facility] HospitalComment on above: Performed By: #### CBC #### [facility] [address] [address] [address] David Evansosinophils/100 WBC (Bld)0.2 %Critically low0.9-7.0The [facility] HospitalComment on above:Performed By: #### CBC #### [facility] [address] [address] [address] David Evansrythrocyte distribution width (RBC) [Ratio]13.4 %Yoxncy91.0-15.0 The [facility] HospitalComment on above:Performed By: #### CBC #### [facility] [address] [address] [address] David MaganaHematocrit (Bld) [Volume fraction]43.4 %Pulayk36.0-54.0The [facility] HospitalComment on above:Performed By: #### CBC #### [facility] [address] [place] [address] Dr. David MaganaHemoglobin (Bld) [Mass/Vol]14.6 g/oSBovgfk06.0-18.0The [facility] HospitalComment on above:Performed By: #### CBC #### [facility] [address] [place] [address] Dr. David Gerardo #0.18 10e3/ulCritically high0.00-0.03[facility] Comment on above:Performed By: #### CBC #### [facility] [address] [place] [address] Dr. David Gerardo %1.5 %Critically high0.0-0.5The [facility] HospitalComment on above:Performed By: #### CBC #### [facility] [address] [place] [address] Dr. David Patiño #0.8 103/ulCritically low1.2-3.8[facility] Comment on above:Performed By: #### CBC #### [facility] [address] [place] [address] Dr. David Marshallhocytes/100 WBC (Bld)6.6 %Critically low20.5-60.0The [facility] HospitalComment on above:Performed By: #### CBC #### [facility] [address] [place] [address] Dr. David Beasley DIFF REQNONormalThe [facility] HospitalComment on above: Performed By: #### CBC #### [facility] [address] [place] [address] Dr. David Torres (RBC) [Entitic mass]33.7 zmVasbbv24.9-34.0The [facility] HospitalComment on above:Performed By: #### CBC #### [facility] [address] [place] [address] Dr. David Faulkner (RBC) [Mass/Vol]33.6 g/jWIivpdo70.9-35.2The [facility] HospitalComment on above:Performed By: #### CBC #### [facility] [address] [place] [address] Dr. Yilan ChangMCV (RBC) [Entitic vol]100.2 fLCritically high80.0-94.0Wilson HealthComment on above:Performed By: #### CBC #### [facility] [address] [place] [address] Dr. David Santos #1.1 103/ulCritically high0.3-0.8ThMercy Health [facility] Comment on above:Performed By: #### CBC #### [facility] [address] [place] [address] Dr. David Dickensocytes/100 WBC (Bld)9.3 %Normal1.7-12.0[facility] Comment on above:Performed By: #### CBC #### [facility] [address] [place] [address] Dr. David Hartley #9.6 103/ulCritically high1.4-6.5ThMercy Health Willard Hospital Comment on above:Performed By: #### CBC #### [facility] [address] [place] [address] Dr. David Sargentutrophils/100 WBC (Bld)82.1 %Critically high43.0-75.0[facility] HealthComment on above:Performed By: #### CBC #### [facility] [address] [place] [address] Dr. David Vigil mean volume (Bld) [Entitic vol]10.8 fLNormal9.5-13.5ThMercy Health Willard HospitalComment on above:Performed By: #### CBC #### [facility] [address] [place] [address] Dr. David MaganaPLT202 103/ngPxfpuj336-401Wcb [facility] HospitalComment on above: Performed By: #### CBC #### [facility] [address] [place] [address] Dr. David MaganaRBC4.33 106/ulCritically low4.70-6.10The [facility] HospitalComment on above:Performed By: #### CBC #### [facility] [address] [place] [address] Dr. David MaganaWBC11.7 103/ulCritically high4.0-11.0The [facility] HospitalComment on above:Performed By: #### CBC #### [facility] [address] [place] [address] Dr. David Blair 14(COMP METB)on 50-72-6194Mxsfsut [Mass/Vol]3.4 g/dLNormal 3.4-5.0The [facility] HospitalComment on above:Performed By: #### A1C #### [facility] [address] [place] [address] Dr. David MaganaAlbumin/Globulin [Mass ratio]1.1 {ratio}NormalThe [facility] HospitalComment on above:Performed By: #### A1C #### [facility] [address] [place] [address] Dr. David HartP [Catalytic activity/Vol]63 U/LZxoanr21-252Tzm [facility] HospitalComment on above:Performed By: #### A1C #### [facility] [address] [place] [address] Dr. David Ag [Catalytic activity/Vol]34 U/MLhajlm03-03Ovm [facility] HospitalComment on above:Performed By: #### A1C #### [facility] [address] [place] [address] Dr. David Camargo gap [Moles/Vol]20.9 mmol/LNormalThe [facility] Comment on above:Performed By: #### A1C #### [facility] [address] [place] [address] Dr. David MaganaAST [Catalytic activity/Vol]18 U/FHeokcw89-92Ywb [facility] HospitalComment on above:Performed By: #### A1C #### [facility] [address] [place] [address] Dr. David MaganaBilirubin [Mass/Vol]0.5 mg/dLNormal0.2-1.0[facility] Comment on above:Performed By: #### A1C #### [facility] [address] [place] [address] Dr. David MaganaCalcium [Mass/Vol]8.5 mg/dLNormal8.5-10.1[facility] Comment on above:Performed By: #### A1C #### [facility] [address] [place] [address] Dr. David MaganaChloride [Moles/Vol]99 mmol/UQjrzyq82-426Sdy [facility] Comment on above:Performed By: #### A1C #### [facility] [address] [place] [address] Dr. David MaganaCO2 [Moles/Vol]19.1 mmol/LCritically low21.0-32.0The [facility] HospitalComment on above:Performed By: #### A1C #### [facility] [address] [place] [address] Dr. David MaganaCreatinine [Mass/Vol]1.80 mg/dLCritically high0.70-1.30The [facility] HospitalComment on above:Performed By: #### A1C #### [facility] [address] [place] [address] Dr. Hernandez ChangEGFR-AF SUIPCRXG96 mL/min/1.27u8Hlnhfpxviw low>=60The [facility] HospitalComment on above:Performed By: #### A1C #### [facility] [address] [place] [address] Dr. David EvansGFR-NON AF DYRGZCSP75 mL/min/1.81o7Tbufsijpnk low>=60The [facility] HospitalComment on above:Performed By: #### A1C #### [facility] [address] [place] [address] Dr. David MaganaGlobulin (S) [Mass/Vol]3.2 g/dLNormalThe [facility] HospitalComment on above:Performed By: #### A1C #### [facility] [address] [place] [address] Dr. David MaganaGlucose [Mass/Vol]287 mg/dLCritically xhdp35-445Pvb [facility] HospitalComment on above:Performed By: #### A1C #### [facility] [address] [place] [address] Dr. David MaganaPotassium [Moles/Vol]5.0 mmol/LNormal3.5-5.1[facility] Comment on above:Performed By: #### A1C #### [facility] [address] [address] [address] David MaganaProtein [Mass/Vol]6.6 g/dLNormal6.4-8.2[facility] Comment on above:Performed By: #### A1C #### [facility] [address] [address] [address] David Linkdium [Moles/Vol]134 mmol/LCritically mnz988-755Kkv [facility] HospitalComment on above:Performed By: #### A1C #### [facility] [address] [place] [address] Dr. David Gomez nitrogen [Mass/Vol]51.0 mg/dLCritically high7.0-18.0The [facility] HospitalComment on above:Performed By: #### A1C #### [facility] [address] [place] [address] Dr. David Gomez nitrogen/Creatinine [Mass ratio]28.3 mg/mgNoMercy Health St. Rita's Medical CenterComment on above:Performed By: #### A1C #### [facility] [address] [place] [address] Dr. David [facility] MODENASAL CANNULATuscarawas HospitalComment on above:Performed By: #### A1C #### [facility] [address] [place] [address] Dr. David Barraza TESTPositiveTuscarawas HospitalComment on above: Performed By: #### A1C #### [facility] [address] [place] [address] Dr. David MaganaBase excess Calc (Bld) [Moles/Vol]-9.0000 mmol/LCritically low -2.0-2.0The [facility] HospitalComment on above:Performed By: #### A1C #### [facility] [address] [place] [address] Dr. David Coleman [facility] Rittman Medical CenterComment on above: Performed By: #### A1C #### [facility] [address] [address] [address] David MaganaCPAPTuscarawas HospitalComkalamazoo psychiatric hospital on above:Performed By: #### A1C #### [facility] [address] [address] [address] David MaganaQtndvXFT7DhlpnqPryTuscarawas HospitalComment on above:Performed By: #### A1C #### [facility] [address] [address] [address] David MaganaHCO3 (Bld) [Moles/Vol]18.4 mmol/LCritically low22.0-26.0The [facility] HospitalComkalamazoo psychiatric hospital on above:Performed By: #### A1C #### [facility] [address] [place] [address] Dr. David MaganaLPM1.5Tuscarawas HospitalComment on above:Performed By: #### A1C #### [facility] [address] [place] [address] Dr. David MaganaMINUTE VOLUMETuscarawas HospitalComkalamazoo psychiatric hospital on above: Performed By: #### A1C #### [facility] [address] [place] [address] Dr. David MaganaOxygen (Bld) [Partial pressure]69.5 mm[Hg]Critically low 80.0-100.0The [facility] HospitalComkalamazoo psychiatric hospital on above:Performed By: #### A1C #### [facility] [address] [place] [address] Dr. David MaganaOxygen saturation in Blood94.2 %Critically low95.0-100.0The [facility] on above:Performed By: #### A1C #### [facility] [address] [place] [address] Dr. David MaganaPCO229.6 mmHgCritically low35.0-45.0The [facility] HospitalComment on above:Performed By: #### A1C #### [facility] [address] [place] [address] Dr. David MaganaDayton Osteopathic Hospital on above:Performed By: #### A1C #### [facility] [address] [place] [address] Dr. David Phillips (Bld)7.355 [pH]Normal7.350-7.450The [facility] on above:Performed By: #### A1C #### [facility] [address] [place] [address] Dr. David CruzKettering Health TroyComkalamazoo psychiatric hospital on above:Performed By: #### A1C #### [facility] [address] [place] [address] Dr. David MaganaThe [facility] on above:Performed By: #### A1C #### [facility] [address] [place] [address] Dr. David George [facility] HospitalComkal[facility] on above: Performed By: #### A1C #### [facility] [address] [place] [address] Dr. David MeloKettering Health TroyComkalamazoo psychiatric hospital on above:Performed By: #### A1C #### [facility] [address] [place] [address] Dr. David MaganaFirelands Regional Medical Center [facility] on above:Performed By: #### A1C #### [facility] [address] [place] [address] Dr. [facility] MaganaLutheran Hospital on above:Performed By: #### A1C #### [facility] [address] [place] [address] Dr. David Chau 99-28-7054Tcxhrjbnvxu peptide B (Bld) [Mass/Vol]7047.0 pg/mLCritically high<=1,800.0The [facility] on above:Performed By: #### CVDTBH #### [facility] [address] [place] [address] Dr. David SOOD 3-6on [id number] [Catalytic activity/Vol]396 U/L Critically ohnx65-201HgeWilson HealthComment on above:Performed By: #### MG BMP, PHOS #### [facility] [address] [place] [address] Dr. David Vazquez.MB [Mass/Vol]2.94 ng/mLNormal<=3.60[facility] Comment on above:Performed By: #### MG BMP, PHOS #### [facility] [address] [place] [address] Dr. David CavazosOP11.1 pg/mLNormal4.0-76.1[facility] HealthComkalamazoo psychiatric hospital on above:Result Comment: CUT-OFF POINTS HAVE BEEN ESTABLISHED BASED ON THE FOURTH UNIVERSAL DEFINITIONS OF MYOCARDIAL INFARCTION. THE UPPER REFERENCE LIMIT (URL) OF TROPONIN, DEFINED THE 99TH PERCENTILE OF cTnI DISTRIBUTION IN A REFERENCE POPULATION, HAS BEEN CONFIRMED THE DECISION THRESHOLD FOR [place] DIAGNOSIS.Performed By: #### MG BMP, PHOS #### [facility] [address] [place] [address] Dr. David Vazquez [Catalytic activity/Vol]58 U/WXolnao07-770OrjLima City Hospitalment on above:Performed By: #### MG BMP, PHOS #### [facility] [address] [place] [address] Dr. David Vazquez.MB [Mass/Vol]1.71 ng/mLNormal<=3.60[facility] Comment on above:Performed By: #### MG BMP, PHOS #### [facility] [address] [place] [address] Dr. David CavazosOP10.6 pg/mLNormal4.0-76.1[facility] HealthComkalamazoo psychiatric hospital on above:Result Comment: CUT-OFF POINTS HAVE BEEN ESTABLISHED BASED ON THE FOURTH UNIVERSAL DEFINITIONS OF MYOCARDIAL INFARCTION. THE UPPER REFERENCE LIMIT (URL) OF TROPONIN, DEFINED THE 99TH PERCENTILE OF cTnI DISTRIBUTION IN A REFERENCE POPULATION, HAS BEEN CONFIRMED THE DECISION THRESHOLD FOR [place] DIAGNOSIS.Performed By: #### MG, BMP, PHOS #### [facility] [address] [place] [address] Dr. David Frazier AUTO DIFFon [id number] #0.0 103/ulNormal0.0-0.1The [facility] Companyment on above:Performed By: #### MG, BMP, PHOS #### [facility] [address] [place] [address] Dr. David MaganaBasophils/100 WBC (Bld)0.2 %Normal0.2-2.0[facility] Comment on above:Performed By: #### MG, BMP, PHOS #### [facility] [address] [place] [address] Dr. David EvansO #0.0 103/ulNormal0.0-0.7The [facility] HospitalComment on above: Performed By: #### MG, BMP, PHOS #### [facility] [address] [place] [address] Dr. David Evansosinophils/100 WBC (Bld)0.2 %Critically low0.9-7.0The [facility] HospitalComment on above:Performed By: #### MG, BMP, PHOS #### [facility] [address] [place] [address] Dr. David Evansrythrocyte distribution width (RBC) [Ratio]13.2 %Mhvnmm59.0-15.0 The [facility] Companyment on above:Performed By: #### MG, BMP, PHOS #### [facility] [address] [place] [address] Dr. David MaganaHematocrit (Bld) [Volume fraction]43.8 %Bdzixw55.0-54.0The [facility] Companyment on above:Performed By: #### MG, BMP, PHOS #### [facility] [address] [place] [address] Dr. David MaganaHemoglobin (Bld) [Mass/Vol]14.5 g/pMBpoopw70.0-18.0The [facility] Companyment on above:Performed By: #### MG, BMP, PHOS #### [facility] [address] [place] [address] Dr. David Gerardo #0.15 10e3/ulCritically high0.00-0.03[facility] Comment on above:Performed By: #### MG, BMP, PHOS #### [facility] [address] [address] [address] David Gerardo %1.3 %Critically high0.0-0.5ThMercy Health Willard HospitalComment on above:Performed By: #### MG, BMP, PHOS #### [facility] [address] [address] [address] David Patiño #0.5 103/ulCritically low1.2-3.8The [facility] Comment on above:Performed By: #### MG, BMP, PHOS #### [facility] [address] [place] [address] Dr. David Marshallhocytes/100 WBC (Bld)3.8 %Critically low20.5-60.0The [facility] HospitalComment on above:Performed By: #### MG, BMP, PHOS #### [facility] [address] [place] [address] Dr. David DennisonUAL DIFF REQNONormalThe [facility] HospitalComment on above: Performed By: #### MG, BMP, PHOS #### [facility] [address] [place] [address] Dr. David Faulkner (RBC) [Entitic mass]32.7 etDslxby61.9-34.0The [facility] HospitalComment on above:Performed By: #### MG, BMP, PHOS #### [facility] [address] [place] [address] Dr. David Faulkner (RBC) [Mass/Vol]33.1 g/tPOnyxux19.9-35.2The [facility] HospitalComment on above:Performed By: #### MG, BMP, PHOS #### [facility] [address] [place] [address] Dr. David Faulkner (RBC) [Entitic vol]98.9 fLCritically high80.0-94.0The [facility] HospitalComment on above:Performed By: #### MG, BMP, PHOS #### [facility] [address] [place] [address] Dr. David Santos #0.7 103/ulNormal0.3-0.8The [facility] HospitalComment on above:Performed By: #### MG, BMP, PHOS #### [facility] [address] [place] [address] Dr. David Dickensocytes/100 WBC (Bld)5.7 %Normal1.7-12.0The [facility] Comment on above:Performed By: #### MG, BMP, PHOS #### [facility] [address] [place] [address] Dr. David Hartley #10.4 103/ulCritically high1.4-6.5The [facility] Comment on above:Performed By: #### MG, BMP, PHOS #### [facility] [address] [place] [address] Dr. David Sargentutrophils/100 WBC (Bld)88.8 %Critically high43.0-75.0The [facility] HospitalComment on above:Performed By: #### MG, BMP, PHOS #### [facility] [address] [place] [address] Dr. David Vigil mean volume (Bld) [Entitic vol]11.0 fLNormal9.5-13.5The [facility] HospitalComment on above:Performed By: #### MG, BMP, PHOS #### [facility] [address] [place] [address] Dr. David MaganaPLT198 103/zyYzdfat384-634Bbp [facility] HospitalComment on above: Performed By: #### MG, BMP, PHOS #### [facility] [address] [place] [address] Dr. David MaganaRBC4.43 106/ulCritically low4.70-6.10The [facility] HospitalComment on above:Performed By: #### MG, BMP, PHOS #### [facility] [address] [place], [place] [address] Dr. David MaganaWBC11.8 103/ulCritically high4.0-11.0The [facility] Companyment on above:Performed By: #### , ERICK, JOSUE #### [facility] [address] [place], [place] [address] Dr. David MaganaCT HEAD WO CONon [id number] HEAD WO CONINDICATION: 82 years old; Male. [...] Electronically authenticated by: FRANCISCO ZELAYA Date: 2022-07-18 05:12Tuscarawas HospitalCovid-19 PCR (CVDTBH)on [id number]-CoV-2 (COVID-19) RNA SULTANA+probe Ql (Unsp spec)DetectedCritically abnormalNOT DETECTEDThe [facility] on above:Result Comment: This test is not yet approved or cleared by the [place] FDA. When there are no FDA-approved or cleared tests available, and other criteria are met, FDA can make tests available under an emergency access mechanism called an Emergency Use Authorization (EUA). The EUA for this test is supported by the [place] of Health and Human Service's declaration that [...] longer be used).Performed By: #### CVDTBH #### [facility] [address] [place] [address] Dr. David Corrales-DIMERon 85-02-8038K-DIMER1.69 mg/L FEUCritically high<=0.59[facility] on above:Performed By: #### CBC #### [facility] [address] [place] [address] Dr. David Corrales-DIMER COMMENTSSEE BELOWNormalThMorrow County Hospital on above:Result Comment: Increases in D-Dimer [...] generalized hospitalization. Performed By: #### CBC #### [facility] [address] [place] [address] Dr. David MaganaPOINT OF CARE GLUCOSEon 42-83-9339Pfshymq [Mass/Vol]329 mg/dL Critically guam58-275LipKettering Health [facility] on above:Performed By: #### POCGLUC #### [facility] [address] [place] [address] Dr. David MagnaaGlucose [Mass/Vol]354 mg/dLCritically rubg21-842Oqy [facility] on above:Performed By: #### POCGLUC #### [facility] [address] [place] [address] Dr. David MaganaPROF 14(COMP METB)on 14-53-3099Qkmmzdw [Mass/Vol]3.6 g/dLNormal 3.4-5.0The [facility] on above:Performed By: #### CVDTBH #### [facility] [address] [place] [address] Dr. David MaganaAlbumin/Globulin [Mass ratio]1.1 {ratio}NormalThe Hartford HospitalComment on above:Performed By: #### CVDTBH #### [facility] [address] [address] [address] David Oates [Catalytic activity/Vol]67 U/GAdlnon80-711Mse [facility] HospitalComment on above:Performed By: #### CVDTBH #### [facility] [address] [address] [address] David Ag [Catalytic activity/Vol]33 U/TCqefyk11-42Hla [facility] HospitalComment on above:Performed By: #### CVDTBH #### [facility] [address] [address] [address] David Camargo gap [Moles/Vol]23.5 mmol/LNormalThe [facility] Comment on above:Performed By: #### CVDTBH #### [facility] [address] [address] [address] David MaganaAST [Catalytic activity/Vol]13 U/LCritically xjm26-67Wcv [facility] HospitalComment on above:Performed By: #### CVDTBH #### [facility] [address] [address] [address] David MaganaBilirubin [Mass/Vol]0.6 mg/dLNormal0.2-1.0The [facility] Comment on above:Performed By: #### CVDTBH #### [facility] [address] [address] [address] David MaganaCalcium [Mass/Vol]8.4 mg/dLCritically low8.5-10.1The [facility] HospitalComment on above:Performed By: #### CVDTBH #### [facility] [address] [address] [address] David MaganaChloride [Moles/Vol]93 mmol/LCritically snr43-923Hks [facility] HospitalComment on above:Performed By: #### CVDTBH #### [facility] [address] [address] [address] David MaganaCO2 [Moles/Vol]17.9 mmol/LCritically low21.0-32.0The [facility] HospitalComment on above:Performed By: #### CVDTBH #### [facility] [address] [place] [address] Dr. David MaganaCreatinine [Mass/Vol]2.15 mg/dLCritically high0.70-1.30The [facility] HospitalComment on above:Performed By: #### CVDTBH #### [facility] [address] [place] [address] Dr. David EvansGFR-AF CRLDGKYO71 mL/min/1.93c2Ktcplztmfr low>=60The [facility] HospitalComment on above:Performed By: #### CVDTBH #### [facility] [address] [place] [address] Dr. David Mchugh-NON AF WCWCVDLF73 mL/min/1.21c0Oesvemocgp low>=60The [facility] HospitalComment on above:Performed By: #### CVDTBH #### [facility] [address] [place] [address] Dr. David MaganaGlobulin (S) [Mass/Vol]3.2 g/dLNormalThe [facility] HospitalComment on above:Performed By: #### CVDTBH #### [facility] [address] [place] [address] Dr. David MaganaGlucose [Mass/Vol]345 mg/dLCritically udct66-016Raa [facility] HospitalComment on above:Performed By: #### CVDTBH #### [facility] [address] [place] [address] Dr. David MaganaPotassium [Moles/Vol]5.4 mmol/LCritically high3.5-5.1The [facility] HospitalComment on above:Performed By: #### CVDTBH #### [facility] [address] [place] [address] Dr. David MaganaPerformed By: #### K #### [facility] [address] [place] [address] Dr. David MaganaProtein [Mass/Vol]6.8 g/dLNormal6.4-8.2The [facility] Comment on above:Performed By: #### CVDTBH #### [facility] [address] [address] [address] David Ritchieum [Moles/Vol]129 mmol/LCritically isx134-260Ird [facility] HospitalComment on above:Performed By: #### CVDTBH #### [facility] [address] [address] [address] David Gomez nitrogen [Mass/Vol]65.0 mg/dLCritically high7.0-18.0The [facility] HospitalComment on above:Performed By: #### CVDTBH #### [facility] [address] [address] [address] David Gomez nitrogen/Creatinine [Mass ratio]30.2 mg/mgNormalThe [facility] HospitalComment on above:Performed By: #### CVDTBH #### [facility] [address] [place] [address] Dr. David Guerin RANDOM W/MICROSCOPICon 19-85-6456OVRAQRNJLYLI SEENNormalNONE SEENWilson HealthComment on above:Performed By: #### MG, BMP, PHOS #### [facility] [address] [place] [address] Dr. David Rawls Ql ()NegativeNormalNEGATIVEWilson Health Comment on above:Performed By: #### MG, BMP, PHOS #### [facility] [address] [place] [address] Dr. David Haney SEENNormalNONE SEENWilson HealthComment on above:Performed By: #### MG, BMP, PHOS #### [facility] [address] [place] [address] Dr. David Wolf (U)CLEARNormalCLEARWilson HealthComment on above: Performed By: #### MG, BMP, PHOS #### [facility] [address] [place] [address] Dr. David Briceño (U)LT. YELLOWNormalYELLOWWilson HealthComment on above:Performed By: #### MG, BMP, PHOS #### [facility] [address] [address] [address] David MaganaCrystals LM Nom (Urine sed)NONE SEENNormalNONE SEENWilson HealthComment on above:Performed By: #### MG, BMP, PHOS #### [facility] [address] [address] [address] David Evanspithelial cells LM Ql (Urine sed)RARENormalNONE SEEN /RAREWilson HealthComment on above:Performed By: #### MG, BMP, PHOS #### [facility] [address] [address] [address] David MaganaGlucose Ql (U)1000 mg/dlAbnorthwest medical centeralNEGCleveland Clinic [facility] Comment on above:Performed By: #### MG, BMP, PHOS #### [facility] [address] [address] [address] David MaganaHemoglobin Ql (U)NegativeNormalNEGCleveland Clinic [facility] Comment on above:Performed By: #### MG, BMP, PHOS #### [facility] [address] [address] [address] David Hubbardones Ql (U)15 mg/dlAbBrecksville VA [facility] Comment on above:Performed By: #### MG, BMP, PHOS #### [facility] [address] [address] [address] David MaganaLEUKOCYTESNegativeNormalNEGATIVEWilson HealthComment on above:Performed By: #### MG, BMP, PHOS #### [facility] [address] [address] [address] David MaganaMUCOUSNONE SEENNormalNONE SEENWilson HealthComkalamazoo psychiatric hospital on above:Performed By: #### MG, BMP, PHOS #### [facility] [address] [address] [address] David MaganaNitrite Ql (U)NegativeNormalNEGATIVEWilson HealthComment on above:Performed By: #### MG, BMP, PHOS #### [facility] [address] [address] [address] David MaganapH (U)5.5 [pH]Normal5-9The [facility] HospitalComment on above: Performed By: #### MG, BMP, PHOS #### [facility] [address] [place] [address] Dr. David MaganaRBCNONE SEENAbnormal0-2The [facility] HospitalComment on above: Performed By: #### MG, BMP, PHOS #### [facility] [address] [place] [address] Dr. David MaganaSPEC GRAVITY<=1.982Ipgnnxsi1.005-<=1.025The [facility] Comment on above:Performed By: #### MG, BMP, PHOS #### [facility] [address] [place] [address] Dr. David MaganaUA PROTEINNegativeNormalNEGATIVE/ TRACEThe [facility] Comment on above:Performed By: #### MG, BMP, PHOS #### [facility] [address] [place] [address] Dr. David Barnesbildanika Qn (U)0.2 {Dionna'U}/dLNormal0.2 - 1.0The [facility] Companyment on above:Performed By: #### MG, BMP, PHOS #### [facility] [address] [place] [address] Dr. David MaganaWBCNONE SEENNormalNONE SEENThe [facility] HospitalComment on above: Performed By: #### MG, BMP, PHOS #### [facility] [address] [place] [address] Dr. David MaganaXR CHEST 1 Von [id number] CHEST 1 VEXAM: XR CHEST 1 V [...] Electronically authenticated by: Yefri DWYER Date: 2022-07-18 00:09[facility]carawas HospitalCARDIAC BARRIE ADMITon [id number] [Catalytic activity/Vol]61 U/ZCvrfai09-788BmoWilson HealthComment on above:Performed By: #### CBC #### [facility] [address] [place] [address] Dr. David Vazquez.MB [Mass/Vol]1.84 ng/mLNormal<=3.60[facility] Comment on above:Performed By: #### CBC #### [facility] [address] [place] [address] Dr. David DacostaTROP9.4 pg/mLNormal4.0-76.1The [facility] HospitalComment on above:Result Comment: CUT-OFF POINTS HAVE BEEN ESTABLISHED BASED ON THE FOURTH UNIVERSAL DEFINITIONS OF MYOCARDIAL INFARCTION. THE UPPER REFERENCE LIMIT (URL) OF TROPONIN, DEFINED THE 99TH PERCENTILE OF cTnI DISTRIBUTION IN A REFERENCE POPULATION, HAS BEEN CONFIRMED THE DECISION THRESHOLD FOR [place] DIAGNOSIS.Performed By: #### CBC #### [facility] [address] [place] [address] Dr. David FioreO533 ng/mLCritically kvkh32-59ZnlLima City Hospitalment on above:Performed By: #### CBC #### [facility] [address] [place] [address] Dr. David Frazier AUTO DIFFon 09-98-1200BUAL #0.0 103/ulNormal0.0-0.1The [facility] HospitalComment on above:Performed By: #### MG, BMP, PHOS #### [facility] [address] [place] [address] Dr. David Campbellsophils/100 WBC (Bld)0.2 %Normal0.2-2.0[facility] Comment on above:Performed By: #### MG, BMP, PHOS #### [facility] [address] [place] [address] Dr. David Colorado #0.0 103/ulNormal0.0-0.7The [facility] HospitalComment on above: Performed By: #### MG, BMP, PHOS #### [facility] [address] [address] [address] David Evansosinophils/100 WBC (Bld)0.1 %Critically low0.9-7.0The [facility] HospitalComment on above:Performed By: #### MG, BMP, PHOS #### [facility] [address] [address] [address] David Evansrythrocyte distribution width (RBC) [Ratio]13.2 %Ysrcon02.0-15.0 The [facility] HospitalComment on above:Performed By: #### MG, BMP, PHOS #### [facility] [address] [place] [address] Dr. David MaganaHematocrit (Bld) [Volume fraction]43.1 %Brduwi59.0-54.0The [facility] HospitalComment on above:Performed By: #### MG, BMP, PHOS #### [facility] [address] [place] [address] Dr. David MaganaHemoglobin (Bld) [Mass/Vol]14.5 g/rQQtzjye42.0-18.0The [facility] HospitalComment on above:Performed By: #### MG, BMP, PHOS #### [facility] [address] [place] [address] Dr. David Gerardo #0.14 10e3/ulCritically high0.00-0.03The [facility] Comment on above:Performed By: #### MG, BMP, PHOS #### [facility] [address] [place] [address] Dr. David Gerardo %1.2 %Critically high0.0-0.5The [facility] HospitalComment on above:Performed By: #### MG, BMP, PHOS #### [facility] [address] [place] [address] Dr. David Patiño #0.4 103/ulCritically low1.2-3.8The [facility] Comment on above:Performed By: #### MG, BMP, PHOS #### [facility] [address] [place] [address] Dr. David Ramosmphocytes/100 WBC (Bld)3.4 %Critically low20.5-60.0Wilson HealthComment on above:Performed By: #### MG, BMP, PHOS #### [facility] [address] [place] [address] Dr. David DennisonUAL DIFF REQNONormalThe [facility] HospitalComment on above: Performed By: #### MG, BMP, PHOS #### [facility] [address] [place] [address] Dr. David Faulkner (RBC) [Entitic mass]33.3 hlXewdbp76.9-34.0The [facility] HospitalComment on above:Performed By: #### MG, BMP, PHOS #### [facility] [address] [place] [address] Dr. David Faulkner (RBC) [Mass/Vol]33.6 g/rVWcrocm10.9-35.2The [facility] HospitalComment on above:Performed By: #### MG, BMP, PHOS #### [facility] [address] [place] [address] Dr. David Faulkner (RBC) [Entitic vol]98.9 fLCritically high80.0-94.0The [facility] HospitalComment on above:Performed By: #### MG, BMP, PHOS #### [facility] [address] [place] [address] Dr. David Santos #1.1 103/ulCritically high0.3-0.8ThMercy Health [facility] Comment on above:Performed By: #### MG, BMP, PHOS #### [facility] [address] [place] [address] Dr. David Dickensocytes/100 WBC (Bld)8.9 %Normal1.7-12.0[facility] Comment on above:Performed By: #### MG, BMP, PHOS #### [facility] [address] [place] [address] Dr. David Hartley #10.3 103/ulCritically high1.4-6.5The [facility] Comment on above:Performed By: #### MG, BMP, PHOS #### [facility] [address] [place] [address] Dr. David Sargentutrophils/100 WBC (Bld)86.2 %Critically high43.0-75.0The [facility] HospitalComment on above:Performed By: #### MG, BMP, PHOS #### [facility] [address] [place] [address] Dr. David Ortegalet mean volume (Bld) [Entitic vol]11.1 fLNormal9.5-13.5The [facility] HospitalComment on above:Performed By: #### MG, BMP, PHOS #### [facility] [address] [place] [address] Dr. David MaganaPLT229 103/ehFjywbs647-750Cpm [facility] HospitalComment on above: Performed By: #### MG, BMP, PHOS #### [facility] [address] [place] [address] Dr. David MaganaRBC4.36 106/ulCritically low4.70-6.10The [facility] HospitalComment on above:Performed By: #### MG, BMP, PHOS #### [facility] [address] [place] [address] Dr. David MaganaWBC11.9 103/ulCritically high4.0-11.0The [facility] HospitalComment on above:Performed By: #### MG, BMP, PHOS #### [facility] [address] [place] [address] Dr. David Blair CHEM 8 (BAS METB)on 39-25-0821Nlzih gap [Moles/Vol]26.5 mmol/LNormalThe Hartford HospitalComment on above:Performed By: #### CBC #### [facility] [address] [place] [address] Dr. David MaganaCalcium [Mass/Vol]8.2 mg/dLCritically low8.5-10.1The [facility] Companyment on above:Performed By: #### CBC #### [facility] [address] [address] [address] David MaganaChloride [Moles/Vol]89 mmol/LCritically nge59-898Tfj [facility] HospitalComment on above:Performed By: #### CBC #### [facility] [address] [address] [address] David MaganaCO2 [Moles/Vol]14.5 mmol/LCritically low21.0-32.0The [facility] HospitalComment on above:Performed By: #### CBC #### [facility] [address] [place] [address] Dr. David MaganaCreatinine [Mass/Vol]2.78 mg/dLCritically high0.70-1.30The [facility] HospitalComment on above:Performed By: #### CBC #### [facility] [address] [place] [address] Dr. Hernandez ChangEGFR-AF EBHFKQXY36 mL/min/1.98f9Lasqiguefq low>=60The [facility] HospitalComkalamazoo psychiatric hospital on above:Performed By: #### CBC #### [facility] [address] [place] [address] Dr. David EvansGFR-NON AF WCEQZFCE38 mL/min/1.72x4Ahztdamfyd low>=60The [facility] HospitalComment on above:Performed By: #### CBC #### [facility] [address] [place] [address] Dr. David MaganaGlucose [Mass/Vol]442 mg/dLCritically jwty15-417Ciq [facility] HospitalComkalamazoo [facility] on above:Performed By: #### CBC #### [facility] [address] [place] [address] Dr. David MaganaPotassium [Moles/Vol]6.0 mmol/LCritically high3.5-5.1The [facility] HospitalComment on above:Performed By: #### CBC #### [facility] [address] [address] [address] David MaganaSodium [Moles/Vol]124 mmol/LCritically ele685-674Uct [facility] Companyment on above:Performed By: #### CBC #### [facility] [address] [address] [address] David MaganaUrea nitrogen [Mass/Vol]73.0 mg/dLCritically high7.0-18.0The [facility]ment on above:Performed By: #### CBC #### [facility] [address] [address] [address] David MaganaUrea nitrogen/Creatinine [Mass ratio]26.3 mg/mgNormalThe [facility] HospitalComment on above:Performed By: #### CBC #### [facility] [address] [address] [address] David MaganaCovid-19 PCR (CVDTBH)on 53-80-2813GJWR-CoV-2 (COVID-19) RNA SULTANA+probe Ql (Unsp spec)DetectedCritically abnormalNOT DETECTEDThe [facility] HospitalComkalamazoo [facility] hospital on above:Result Comment: This test is not yet approved or cleared by the [place] FDA. When there are no FDA-approved or cleared tests available, and other criteria are met, FDA can make tests available under an emergency access mechanism called an Emergency Use Authorization (EUA). The EUA for this test is supported by the [place] of Health and Human Service's (HHS's) declaration [...] Performed By: #### MG, BMP, PHOS #### [facility] [address] [address] [address] Hernandez ChangECHOCARDIO M/2D COMPLETEon 75-90-8770NYSSIPKBMK M/2D COMPLETE Patient: NADIR BETHJeannie Exam Date: 07/01/2022 : 1940 Gender:M Ordering : DR CLARIBEL CISNEROS M.D. Admission #: [id number] Family : DR VAN YOUSSEF . Order #: [id number] CLICK HERE TO VIEW EXAM ECHOCARDIOGRAM REPORT [...] by: Rohini Traylor M.D. on 07/01/2022 at 16:27NoMercy Health [address]. Rita's Medical CenterCovid-19 PCR (CVDTBH)on 40-40-6398ZEAY-CoV-2 (COVID-19) RNA SULTANA+probe Ql (Unsp spec)Not detectedNormalNOT DETECTEDThe [facility] HospitalComkalamazoo psychiatric hospital on above: Result Comment: When diagnostic testing [...] for this test is supported by the [place] of Health and Human Service's declaration that [...] longer be used).Performed By: #### CVDTBH #### [facility] [address] [place] [address] Dr. David MaganaCREATININE URINEon 00-28-9209HDBMK CREAT14.70 mg/dLCritically low 20.00-300.00The [facility] Companyment on above:Performed By: #### ERICK ESPINOSA PHOS #### [facility] [address] [place] [address] Dr. David MaganaGLYCOHEMOGLOBIN A1Con 30-87-9442ACI RECOMMENDATIONSEE BELOWNormal The [facility] HospitalComment on above:Result Comment: ADA RECOMMENDED LIMIT 4.0 - 6.0 ADA THERAPEUTIC TARGET < 7.0 ACTION SUGGESTED > 7.0Performed By: #### A1C #### [facility] [address] [place] [address] Dr. David MaganaGlucose [Mass/Vol]209 mg/dLNormalThMorrow County Hospital on above:Performed By: #### A1C #### [facility] [address] [place] [address] Dr. David MaganaHbA1c (Bld) [Mass fraction]8.9 %Critically high4.5-6.2The [facility] HospitalComment on above:Performed By: #### A1C #### [facility] [address] [place] [address] Dr. David MaganaMAGNESIUMon 47-31-7718Hncjrxtkx [Mass/Vol]2.3 mg/dLNormal1.8-2.4 The [facility] HospitalComment on above:Performed By: #### MG BMP, PHOS #### [facility] [address] [place] [address] Dr. David MaganaPHOSPHORUSon 09-46-5371Yvryjlobo [Mass/Vol]3.5 mg/dLNormal2.6-4.7 The [facility] HospitalComment on above:Performed By: #### MG, BMP, PHOS #### [facility] [address] [place] [address] Dr. David MaganaPROF CHEM 8 (BAS METB)on 23-54-5231Kenab gap [Moles/Vol]10.6 mmol/LNormalThe [facility] HospitalComment on above:Performed By: #### MG, BMP, PHOS #### [facility] [address] [place] [address] Dr. David MaganaCalcium [Mass/Vol]9.2 mg/dLNormal8.5-10.1The [facility] Comment on above:Performed By: #### MG, BMP, PHOS #### [facility] [address] [place] [address] Dr. David MaganaChloride [Moles/Vol]102 mmol/XCgxgkm41-131Uvx [facility] Comment on above:Performed By: #### MG, BMP, PHOS #### [facility] [address] [place] [address] Dr. David MaganaCO2 [Moles/Vol]30.1 mmol/HGmtupw83.0-32.0The [facility] Comment on above:Performed By: #### MG, BMP, PHOS #### [facility] [address] [place] [address] Dr. David MaganaCreatinine [Mass/Vol]1.70 mg/dLCritically high0.70-1.30The [facility] HospitalComment on above:Performed By: #### MG, BMP, PHOS #### [facility] [address] [place] [address] Dr. David EvansGFR-AF NHTTNRYL57 mL/min/1.86h5Ytlvgzhefj low>=60The [facility] HospitalComment on above:Performed By: #### MG, BMP, PHOS #### [facility] [address] [place] [address] Dr. Hernandez ChangEGFR-NON AF CTSQMDDE37 mL/min/1.90w3Hubttxpuym low>=60The [facility] HospitalComment on above:Performed By: #### MG, BMP, PHOS #### [facility] [address] [address] [address] David MaganaGlucose [Mass/Vol]197 mg/dLCritically ofou90-186Tyt [facility] HospitalComment on above:Performed By: #### MG, BMP, PHOS #### [facility] [address] [place] [address] Dr. David MaganaPotassium [Moles/Vol]4.7 mmol/LNormal3.5-5.1The [facility] Comment on above:Performed By: #### MG, BMP, PHOS #### [facility] [address] [place] [address] Dr. David MaganaSodium [Moles/Vol]138 mmol/SNyfgke307-022Rzh [facility] Comment on above:Performed By: #### MG, BMP, PHOS #### [facility] [address] [address] [address] David MaganaUrea nitrogen [Mass/Vol]25.0 mg/dLCritically high7.0-18.0The [facility] HospitalComment on above:Performed By: #### MG, BMP, PHOS #### [facility] [address] [place] [address] Dr. David Gomez nitrogen/Creatinine [Mass ratio]14.7 mg/mgNormalThe [facility] HospitalComment on above:Performed By: #### MG, BMP, PHOS #### [facility] [address] [place] [address] Dr. David MaganaPROTEIN RAND URINEon [id number] PROT<5.0Normal<=11.9The [facility] HospitalComment on above:Performed By: #### CREAU, PROTU #### [facility] [address] [place] [address] Dr. David MaganaBILIRUBIN CONJUGATED (DIRECT)on 14-29-9610RACK, CONJUGATED0.1 mg/dLNormal0.0-0.2The [facility] HospitalComment on above:Performed By: #### POCGLUC #### [facility] [address] [place] [address] Dr. David Frazier AUTO DIFFon 07-79-3802RNZR #0.1 103/ulNormal0.0-0.1The [facility] HospitalComment on above:Performed By: #### CVDTBH #### [facility] [address] [place] [address] Dr. David MaganaBasophils/100 WBC (Bld)0.7 %Normal0.2-2.0The [facility] Comment on above:Performed By: #### CVDTBH #### [facility] [address] [place] [address] Dr. David Colorado #0.5 103/ulNormal0.0-0.7The [facility] HospitalComment on above: Performed By: #### CVDTBH #### [facility] [address] [place] [address] Dr. David Evansosinophils/100 WBC (Bld)6.7 %Normal0.9-7.0The [facility] Comment on above:Performed By: #### CVDTBH #### [facility] [address] [place] [address] Dr. David Evansrythrocyte distribution width (RBC) [Ratio]13.6 %Awaked78.0-15.0 The [facility] HospitalComment on above:Performed By: #### CVDTBH #### [facility] [address] [place] [address] Dr. David MaganaHematocrit (Bld) [Volume fraction]45.9 %Uznipd25.0-54.0The [facility] HospitalComment on above:Performed By: #### CVDTBH #### [facility] [address] [place] [address] Dr. David MaganaHemoglobin (Bld) [Mass/Vol]14.9 g/hGWbpsjv61.0-18.0The [facility] HospitalComment on above:Performed By: #### CVDTBH #### [facility] [address] [address] [address] David Gerardo #0.03 10e3/ulNormal0.00-0.03The [facility] HospitalComment on above:Performed By: #### CVDTBH #### [facility] [address] [address] [address] David Gerardo %0.4 %Normal0.0-0.5The [facility] HospitalComment on above: Performed By: #### CVDTBH #### [facility] [address] [address] [address] David Patiño #1.0 103/ulCritically low1.2-3.8The [facility] Comment on above:Performed By: #### CVDTBH #### [facility] [facility] [address] [address] [address] David Marshallhocytes/100 WBC (Bld)13.4 %Critically low20.5-60.0The [facility] HospitalComment on above:Performed By: #### CVDTBH #### [facility] [address] [address] [address] David DennisonUAL DIFF REQNONormalThe [facility]zer HospitalComment on above: Performed By: #### CVDTBH #### [facility] [address] [address] [address] David Torres (RBC) [Entitic mass]33.8 ohRrqpfh37.9-34.0The [facility] HospitalComment on above:Performed By: #### CVDTBH #### [facility] [address] [address] [address] David Faulkner (RBC) [Mass/Vol]32.5 g/sRMbjrad33.9-35.2The [facility] HospitalComment on above:Performed By: #### CVDTBH #### [facility] [address] [address] [address] David Faulkner (RBC) [Entitic vol]104.1 fLCritically high80.0-94.0The [facility] HospitalComment on above:Performed By: #### CVDTBH #### [facility] [address] [place] [address] Dr. David Santos #0.8 103/ulNormal0.3-0.8The [facility] HospitalComment on above:Performed By: #### CVDTBH #### [facility] [address] [place] [address] Dr. David Dickensocytes/100 WBC (Bld)10.2 %Normal1.7-12.0[facility] Comment on above:Performed By: #### CVDTBH #### [facility] [address] [place] [address] Dr. David Hartley #5.1 103/ulNormal1.4-6.5The [facility] HospitalComment on above:Performed By: #### CVDTBH #### [facility] [address] [place] [address] Dr. David Sargentutrophils/100 WBC (Bld)68.6 %Qazxye60.0-75.0The [facility] HospitalComment on above:Performed By: #### CVDTBH #### [facility] [address] [place] [address] Dr. David Vigil mean volume (Bld) [Entitic vol]11.3 fLNormal9.5-13.5The [facility] HospitalComment on above:Performed By: #### CVDTBH #### [facility] [address] [place] [address] Dr. David SimpsonT185 103/jbScuprv243-952Iue [facility] HospitalComment on above: Performed By: #### CVDTBH #### [facility] [address] [place] [address] Dr. David MaganaRBC4.41 106/ulCritically low4.70-6.10The [facility] HospitalComment on above:Performed By: #### CVDTBH #### [facility] [address] [place] [address] Dr. David NoBC7.5 103/ulNormal4.0-11.0The [facility] Companyment on above: Performed By: #### CVDTBH #### [facility] [address] [place] [address] Dr. David Neal T3on 83-85-0368NRKS T32.17 pg/mlLCritically low2.18-3.98The [facility] HospitalComment on above:Performed By: #### POCGLUC #### [facility] [address] [place] [address] Dr. David MaganaLIPID PROFILEon 45-57-6657CVIN-HDL RATIO NORMSEE BELOWTuscarawas HospitalComment on above:Result Comment: 3.3 - 4.4 LOW RISK 4.4 - 7.1 AVERAGE RISK 7.1 - 11.0 MODERATE RISK >11.0 HIGH RISKPerformed By: #### POCGLUC #### [facility] [address] [place] [address] Dr. David Merinoesterol [Mass/Vol]234 mg/dLCritically high<=200The [facility]Com[facility] on above:Performed By: #### POCGLUC #### [facility] [address] [place] [address] Dr. David Merinoesterol in HDL [Mass/Vol]58 mg/oMMyvwmr20-16Awe [facility]Com[facility] on above:Performed By: #### POCGLUC #### [facility] [address] [place] [address] Dr. David Merinoesterol in LDL [Mass/Vol]129.0 mg/dLTuscarawas HospitalComkalamazoo psychiatric hospital on above:Performed By: #### POCGLUC #### [facility] [address] [place] [address] Dr. David Casey.total/Cholesterol in HDL [Mass ratio]4.0 {ratio} NormalThe [facility] on above:Performed By: #### POCGLUC #### [facility] [address] [place] [address] Dr. David Dee NORMAL> or = 60 mg/dl - LOW CARDIOVASCULAR RISK <40 mg/dl - HIGH CARDIOVASCULAR RISKTuscarawas HospitalComment on above:Performed By: #### POCGLUC #### [facility] [address] [place] [address] Dr. David Kebede CALC NORMALSEE BELOWTuscarawas HospitalComment on above:Result Comment: <100 mg/dl OPTIMAL 100 - 129 mg/dl NEAR OR ABOVE OPTIMAL 130 - 159 mg/dl BORDERLINE HIGH 160 - 189 mg/dl HIGH >190 mg/dl VERY HIGH Performed By: #### POCGLUC #### [facility] [address] [place] [address] Dr. David MaganaTriglyceride [Mass/Vol]235 mg/dLCritically high<=150The [facility]Com[facility] on above:Performed By: #### POCGLUC #### [facility] [address] [place] [address] Dr. David MaganaVLDL CALC47.0 mg/dLNoMercy Health St. Rita's Medical CenterComment on above: Performed By: #### POCGLUC #### [facility] [address] [place] [address] Dr. David MaganaPROF 14(COMP METB)on 31-01-1780Dnniqij [Mass/Vol]3.2 g/dL Critically low3.4-5.0The [facility] on above:Performed By: #### POCGLUC #### [facility] [address] [place] [address] Dr. David MaganaAlbumin/Globulin [Mass ratio]0.9 {ratio}NormalThe [facility] HospitalComkalamaz[facility] psychiatric hospital on above:Performed By: #### POCGLUC #### [facility] [address] [place] [address] Dr. David Oates [Catalytic activity/Vol]77 U/EOyiudo99-689Afj [facility] on above:Performed By: #### POCGLUC #### [facility] [address] [place] [address] Dr. David Ag [Catalytic activity/Vol]24 U/KKgnsdl89-72Xlj [facility] HospitalComment on above:Performed By: #### POCGLUC #### [facility] [address] [address] [address] David Camargo gap [Moles/Vol]13.1 mmol/LNormalThe [facility] Comment on above:Performed By: #### POCGLUC #### [facility] [address] [address] [address] David MaganaAST [Catalytic activity/Vol]13 U/LCritically vbn45-60Vvt [facility] HospitalComment on above:Performed By: #### POCGLUC #### [facility] [address] [address] [address] David MaganaBilirubin [Mass/Vol]0.3 mg/dLNormal0.2-1.0[facility] Comment on above:Performed By: #### POCGLUC #### [facility] [address] [address] [address] David MaganaCalcium [Mass/Vol]8.8 mg/dLNormal8.5-10.1[facility] Comment on above:Performed By: #### POCGLUC #### [facility] [address] [address] [address] David MaganaChloride [Moles/Vol]106 mmol/AWovfal77-315Uaq [facility] Comment on above:Performed By: #### POCGLUC #### [facility] [address] [address] [address] David MaganaCO2 [Moles/Vol]27.5 mmol/NUtyxtx72.0-32.0[facility] Comment on above:Performed By: #### POCGLUC #### [facility] [address] [address] [address] David MaganaCreatinine [Mass/Vol]1.62 mg/dLCritically high0.70-1.30The [facility] HospitalComment on above:Performed By: #### POCGLUC #### [facility] [address] [address] [address] Hernandez ChangEGFR-AF DKGSJKES45 mL/min/1.16x5Lhbszzcxhh low>=60The [facility] HospitalComment on above:Performed By: #### POCGLUC #### [facility] [address] [address] [address] David EvansGFR-NON AF PLSTYFWW41 mL/min/1.82k9Xtzrbzsxag low>=60The [facility] HospitalComment on above:Performed By: #### POCGLUC #### [facility] [address] [address] [address] David MaganaGlobulin (S) [Mass/Vol]3.4 g/dLNoMercy Health St. Rita's Medical CenterComment on above:Performed By: #### POCGLUC #### [facility] [address] [address] [address] David MaganaGlucose [Mass/Vol]206 mg/dLCritically bwof02-529Fxy [facility] HospitalComment on above:Performed By: #### POCGLUC #### [facility] [address] [address] [address] David MaganaPotassium [Moles/Vol]4.6 mmol/LNormal3.5-5.1[facility] Comment on above:Performed By: #### POCGLUC #### [facility] [address] [address] [address] David MaganaProtein [Mass/Vol]6.6 g/dLNormal6.4-8.2[facility] Comment on above:Performed By: #### POCGLUC #### [facility] [address] [address] [address] David MaganaSodium [Moles/Vol]142 mmol/MQhwgis116-663Blf [facility] Comment on above:Performed By: #### POCGLUC #### [facility] [address] [address] [address] David MaganaUrea nitrogen [Mass/Vol]26.0 mg/dLCritically high7.0-18.0The [facility] HospitalComment on above:Performed By: #### POCGLUC #### [facility] [address] [address] [address] David MaganaUrea nitrogen/Creatinine [Mass ratio]16.0 mg/mgNoMercy Health St. Rita's Medical CenterComment on above:Performed By: #### POCGLUC #### [facility] [address] [place] [address] Dr. David Juárez [id number] [Mass/Vol]7.70 ug/dLNormal4.50-12.10The [facility] HospitalComment on above:Performed By: #### POCGLUC #### [facility] [address] [place] [address] Dr. David Swanson 82-90-5169GHA9.187 uIU/mLNormal0.358-3.740Wilson HealthComment on above:Performed By: #### POCGLUC #### [facility] [address] [place] [address] Dr. David Demarco [facility] HospitalComment [facility]: Result Comment: <0.34 UIU/ml HYPERTHYROID 0.34-5.60 UIU/ml EUTHYROID >5.60 UIU/ml HYPOTHYROIDPerformed By: #### POCGLUC #### [facility] [address] [place] [address] Dr. David Magana Vital Signs Date TimeVital SignValuePerforming CmxwfarebPymtinhm60-18-0796 11:35-0500Body .7 cmBlaise Chicas DPM Work Phone: [facility] InstituteGmeixtmlde77-14-7053 11:35-0500Body mass index (BMI) [Ratio]27.22 kg/f0JslknxpyBlaise Chicas DPM Work Phone: [facility] InstituteScyinnbmze27-04-1654 11:35-0500Body vcqamh61.19 kgBlaise Chicas DPM Work Phone: [facility] InstituteFfetnxnkhf45-09-7684 11:35-0500Respiratory rate18 /minBlaise Chicas DPM Work Phone: [facility] InstituteFhhwapaizl89-85-9602 10:36-0400Body syaefj572.7 cmBarrie Montoya MD Work Phone: [facility] InstituteHuauifjbnu81-62-7212 10:36-0400Body mass index (BMI) [Ratio]27.22 kg/m2Barrie Montoya MD Work Phone: [facility] InstituteWyytjoztsv31-81-0711 10:36-0400Body urwwaz69.19 kgBarrie Montoya MD Work Phone: [facility] InstituteBfruhbwrid53-16-9889 11:28-0400Body ocaxmt870.9 cmNicholas Brown DPM Work Phone: [phone] [place], [place] [address]Khzvoqqwwn87-21-1323 11:28-0400Body mass index (BMI) [Ratio]25.09 kg/l3Sancwsqh Brown DPM Work Phone: [phone] [place], [place] [address]Femlsryaes09-14-7155 11:28-0400Body .92 kgNicholas Brown DPM Work Phone: [phone] [place], [place] [address]Szhrpsufky23-67-5608 11:28-0400Respiratory rate16 /minNicholas Brown DPM Work Phone: [phone] [place], [place] [address]Dpzecwpnru65-46-5764 16:32-0400Body .9 cmFelicia Windnagel ELECTRO PLATER Work Phone: [phone] [place], [place] [address]Zorkdgumzr12-36-1983 16:32-0400Body mass index (BMI) [Ratio]25.09 kg/o8Uzfifvw Windnagel ELECTRO PLATER Work Phone: [facility] InstituteGllhiquzwb18-01-6563 16:32-0400Body .92 kgFelicia Windnagel ELECTRO PLATER Work Phone: [phone] [place], [place] [address]Mvhsfrghlq44-32-1775 11:05-0400Body .9 cmNicholas Brown DPM Work Phone: [phone] [place], [place] [address]Puiectpzbb09-02-4158 11:05-0400Body mass index (BMI) [Ratio]24.95 kg/p6Kmlqlwdx Brown DPM Work Phone: [facility] InstituteQudetmfjli86-42-3848 11:05-0400Body lhutks54.46 kgNicholas Brown DPM Work Phone: [phone] [place] [address]-29-2025 11:05-0400Respiratory rate16 /minlBaise Chicas DPM Work Phone: [phone] [place], [place] [address]Djdvhadrit65-93-6070 12:58-0400Body wsvxxe902.9 cmBarrie Montoya MD Work Phone: [phone] [place], [place] [address]Ngirbluwmi39-15-1096 12:58-0400Body mass index (BMI) [Ratio]24.95 kg/m2Barrie Montoya MD Work Phone: [phone] [place], [place] [address]Mlhxetxwoi50-15-4945 12:58-0400Body bbczym62.46 kgBarrie Montoya MD Work Phone: [phone] [place], [place] [address]Jljpqhxgwi45-27-8053 08:56-0400Body znuinc115.9 cmSachigregg Chicas DPM Work Phone: [phone])[facility] [place], [place] [address]Ojbgjhnwnh86-82-9281 08:56-0400Body mass index (BMI) [Ratio]39.2 kg/y0Qogiskol Dao DPM Work Phone: [phone])[address] [place], [place] 9912404-24-2025 08:56-0400Body mtbrva586.09 kgSachigregg Chicas DPM Work Phone: [phone] [place], [place] 9912404-24-2025 08:56-0400Respiratory rate18 /letiBlaise Dao DPM Work Phone: [phone] [place], [place] [address]Kfoawpbbag22-87-7073 08:44-0500Diastolic blood mm[Hg]MARQUIS NEELY-AMANKRA [facility]01-20-2025 08:44-0500Heart rate78 /minKMUNDO REINOSOAH-AMANKRA [facility]01-20-2025 08:44-0500Systolic blood kwyykcep987 mm[Hg]MARQUIS NKANSAH-AMANKRA [facility]01-16-2025 08:28-0500Body bjoahe739.9 cmNicumm Chicas DPM Work Phone: [facility] InstituteJrqpkxxjyo97-91-9303 08:28-0500Body mass index (BMI) [Ratio]39.2 kg/o4Ouxsigae Brown DPM Work Phone: [facility] InstituteQibfrxjrzy46-08-8552 08:28-0500Body eyoazx164.09 kgNicumm Chicas DPM Work Phone: [facility] InstituteQwxmhmgtyd82-99-6347 08:28-0500Respiratory rate16 /minBlaise Chicas DPM Work Phone: [facility] InstituteJowzfwigkr99-74-4340 08:09-0500Blood Pressure LocationKMUNDO ROAANSAH-AMANKRA [facility] [address] [address]52-19-2024 08:09-0500Diastolic blood hbfxpidd35 mm[Hg]MARQUIS NKANSAH-AMANKRA [facility] [address] 08[address]52-19-2024 08:09-0500Heart rate65 /minMARQUIS ROAANSAH-AMANKRA [facility] [address] 083052-19-2024 08:09-0500Systolic blood bneyxrpz494 mm[Hg]MARQUIS NKANSAH-AMANKRA [facility] [address] 083050-31-2024 08:19-0400Body sdrbky577.9 cmBlaise Chicas DPM Work Phone: [facility] InstituteIfksystfoj13-49-3389 08:19-0400Body mass index (BMI) [Ratio]39.2 kg/v1Pxpunebe Brown DPM Work Phone: [facility] InstituteSuqhlutatw43-77-8469 08:19-0400Body cqzahz342.09 kgNicumm Brown DPM Work Phone: [address] [phone] 08:19-0400Diastolic blood adpninup52 mm[Hg]Blaise Chicas DPM Work Phone: [phone] [place] [address]-31-2024 08:19-0400Heart rate81 /min Blaise Chicas DPM Work Phone: [phone]-[facility] [address]Vgavgezrvg91-96-0784 08:19-0400Systolic blood byysbpmm917 mm[Hg]Blaise Chicas DPM Work Phone: [phone])235-[address] [place] [address]-24-2024 10:25-0400Blood Pressure LocationKMUNDO ROAANSAH-AMANKRA [facility]09-24-2024 10:25-0400Diastolic blood mm[Hg]MARQUIS ROAANSAH-AMANKRA [facility] [address] [address]-24-2024 10:25-0400Systolic blood zzrnsoxg289 mm[Hg]MARQUIS NKANSAH-AMANKRA [facility]09-19-2024 08:45-0400Body lrvzik172.9 cmBlaise Chicas DPM Work Phone: [phone] [place] [address]-19-2024 08:45-0400Body mass index (BMI) [Ratio]39.2 kg/o7WphxkeigBlaise Chicas DPM Work Phone: [phone] [place] [address]-19-2024 08:45-0400Body wflvao479.09 kgBlaise Chicas DPM Work Phone: [phone]-[facility] [address]Cyvtjaxflw38-53-7191 08:45-0400Diastolic blood stmpqjqy79 mm[Hg]Blaise Chicas DPM Work Phone: [address] [phone] 08:45-0400Heart rate75 /min Blaise Chicas DPM Work Phone: [phone] [place], [place] [address]19-2024 08:45-0400Respiratory rate18 /minBlaise Chicas DPM Work Phone: [address] [phone] 08:45-0400Systolic blood cdwkaxzf167 mm[Hg]Blaise Chicas DPM Work Phone: [address] [phone] 11:24-0400Body qzkayo344.9 cmBarrie Montoya MD Work Phone: [address] [phone] 11:24-0400Body mass index (BMI) [Ratio]39.2 kg/m2Barrie Montoya MD Work Phone: [address] [phone] 11:24-0400Body dyiwfb631.09 kgBarrie Montoya MD Work Phone: [address] [phone] 11:24-0400Diastolic blood ezqxaxpj83 mm[Hg]Barrie Montoya MD Work Phone: [address] [phone] 11:24-0400Heart rate73 /min Barrie Montoya MD Work Phone: [address] [phone] 11:24-0400Systolic blood ytdfydds062 mm[Hg]Barrie Montoya MD Work Phone: [address] [phone] 08:27-0400Body zlukxb913.9 cmBlaise Chicas DPM Work Phone: [address] [phone] 08:27-0400Body mass index (BMI) [Ratio]26.04 kg/a4YzuoyzndBlaise Chicas DPM Work Phone: [address] [phone] 08:27-0400Body ttricp98.09 kgBlaise Chicas DPM Work Phone: [address] [phone] 08:27-0400Diastolic blood ejcvinah67 mm[Hg]Blaise Chicas DPM Work Phone: [address] [phone] 08:27-0400Heart rate75 /min Blaise Dao DPM Work Phone: [facility] InstituteJqapmiddnd27-85-8422 08:27-0400Respiratory rate18 /minJossumm Chicas DPM Work Phone: [facility] InstitutePfbwkaiitu82-82-5319 08:27-0400Systolic blood hzltfmed284 mm[Hg]Blaise Dao DPM Work Phone: [phone] [place], [place] [address]Asshrsvorb30-99-3483 08:27-0400Body veenbj983.9 cmJossumm Chicas DPM Work Phone: [phone] [place], [place] [address]Dkaxxzoeyc44-73-2420 08:27-0400Body mass index (BMI) [Ratio]26.04 kg/i8Avvtynuhumm Chicas DPM Work Phone: [facility] InstituteFqmilvduma94-34-8884 08:27-0400Body ltcwti38.09 kgJossmollygregg Chicas DPM Work Phone: [facility] InstituteIdgnktyymp43-69-2589 08:27-0400Diastolic blood cttqthdi40 mm[Hg]Blaise Dao DPM Work Phone: [facility] InstituteJqdaqhaoeb52-79-1816 08:27-0400Heart rate77 /min Blaise Dao DPM Work Phone: [facility] InstituteBlaovakmej27-63-3238 08:27-0400Systolic blood jpihkcuw972 mm[Hg]Blaise Dao DPM Work Phone: [phone] [place], [place] [address]Vzowjsmdqa11-60-1586 14:33-0500Diastolic blood mm[Hg]Nereyda Gomez 971-3480Lyqgmf-HkeckC[facility]11-30-2023 14:33-0500Mean blood debpoauk43 mm[Hg]Nereyda Gomez 557-8709Lqgbnh-LqjcpC[facility] Clinic [facility]11-30-2023 14:33-0500Systolic blood jhkiqdic897 mm[Hg]Nereyda Gomez 724-5626Rtedqc-Onvid[address] [place], [place] [address]11-30-2023 14:18-0500Blood Pressure LocationBeth Patricia 853-6739Orwqfw-Jbuii[address] [place], [place] 3033911-30-2023 14:18-0500Body zbyajwwneap30.88 [degF]Nereyda Patricia 758-7158Izkrgq-Uyhsj[address] [place], [place] [address]11-30-2023 14:18-0500Diastolic blood feqznbmx12 mm[Hg]Nereyda Patricia 517-3398Szswfz-Ypfjy[address] [place] [address]-30-2023 14:18-0500Heart rate91 /minBeth Patricia 085-8642Xkeszj-Gkyif[address] [place] [address]-30-2023 14:18-0500Systolic blood hcexwlxt374 mm[Hg]Nereyda Patricia [phone]-Xntvt[address] [place] [address]-17-2023 12:13-0500Diastolic blood mxizqtxz61 mm[Hg]Nereyda Patricia 301-7500Knftbt-Mjloe[address] [place] [address]-17-2023 12:13-0500Mean blood mm[Hg]Nereyda Patricia 079-9290Hiumbv-Bqizx[address] [place] [address]-17-2023 12:13-0500Systolic blood kydfjgpb435 mm[Hg]Nereyda Patricia [phone]-Lfuiq[address] [place] [address]-17-2023 12:10-0500Blood Pressure LocationBeth Patricia 461-6744Qjjacp-Qevqt[address] [place] [address]-17-2023 12:10-0500Body hicxmltfyqp34.42 [degF]Nereyda Patricia 326-7673Waduqg-Tbfyc[address] [place] [address]-17-2023 12:10-0500Diastolic blood pwstbetv82 mm[Hg]Nereyda Patricia 085-4680Thjvvu-Ounaf[address] [place] [address]-17-2023 12:10-0500Heart rate81 /minBeth Patricia 227-7566Raxair-PdngzC[facility] Clinic [facility]11-17-2023 12:10-0500Respiratory rate14 /minBeth Patricia 111-5090Icztlj-YscgrC[facility] Clinic [facility]11-17-2023 12:10-0500Systolic blood mm[Hg]Nereyda Patricia 938-7891Cpeldk-EfrfbC[facility] Clinic [facility]07-27-2023 10:43-0400Diastolic blood rysbdmkr17 mm[Hg]Nereyda Patricia 336-6380Caipbl-Dmpor[address] [place], [place] 3033907-27-2023 10:43-0400Heart rate76 /minBeth Patricia 525-0847Xgehga-Toaij[address] [place], [place] 30[address]907-27-2023 10:43-0400Respiratory rate16 /minBeth Patricia [phone]-TwkymC[facility]07-27-2023 10:43-8151JtH5% (BldA) [Mass fraction]95 %Nereyda Patricia 038-3206Zoqbsp-FqmjkC[facility] Clinic [facility]07-27-2023 10:43-0400Systolic blood vumgzlff719 mm[Hg]Nereyda Patricia 342-8254Raivop-LrsqrC[facility]05-30-2023 14:19-0400Diastolic blood ntmhjajm41 mm[Hg]Nereyda Patricia 061-3894Itzcfo-KeknsC[facility] Clinic [facility]05-30-2023 14:19-0400Mean blood slfcdibc03 mm[Hg]Nereyda Patricia 989-9430Jgvnxl-BrrcsC[facility]05-30-2023 14:19-0400Systolic blood udijysmu753 mm[Hg]Nereyda Patricia 888-9059Uufqqy-Qkwls[address] [place], [place] 3033905-30-2023 14:15-0400Blood Pressure LocationBeth Patricia 333-6703Pgfdki-Dbdli[address] [place], [place] 3033905-30-2023 14:15-0400Body whzhhgzwyly58.7 [degF]Nereyda Gomez 623-0713Oobgsf-Bovpt[address] [place], [place] 3033905-30-2023 14:15-0400Diastolic blood gyysdghw17 mm[Hg]Nereyda Gomez 596-4055Nbbnjq-Ptzwx[address] [place], [place] 3033905-30-2023 14:15-0400Heart rate70 /minBeth Patricia 168-5586Wetywv-Dwykd[address] [place], [place] 3033905-30-2023 14:15-0400Systolic blood voywosbx472 mm[Hg]Nereyda Gomez [phone]-Ehkln[address] [place], [place] 30[address]907-26-2022 10:02-0400Body bmqwdjgtsyi55.98 [degF]Nereyda Gomez 830-5295Vltxha-Oufsx[address] [place] [address] [facility] Work Phone: [phone] 10:02-0400Diastolic blood aqezcete48 mm[Hg] Nereyda Gomez 800-6648Dfksxk-Oazfh[address] [place] [address] [facility] Work Phone: [phone] 10:02-0400Heart rate72 /minBeth Patricia [phone]-Wvhts[address] [place] [address] [facility] Work Phone: [phone] 10:02-8123UcH1% (BldA) [Mass fraction]97 % Nereyda Gomez 075-9300Zrojxl-Ehbrj[address] [place] [address] [facility] 324122-66-1566 10:02-0400Systolic blood xcjvjibd244 mm[Hg] Nereyda Donatoz 166-8552Tcowoi-Bmtnu[address] [place] [address] [facility] 644573-29-3307 11:30-0400Diastolic blood mm[Hg] Bender SALAM [facility]06-27-2022 11:30-0400Heart rate86 /minMaher SALAM [facility]06-27-2022 11:30-0400 Respiratory rate15 /minMaher SALAM [address] [place], [place] 1913406-27-2022 11:30-8480WtD1% (BldA) [Mass fraction]95 %Bender SALAM [address] [place], [place] 1913406-27-2022 11:30-0400 Systolic blood eegbdjyz254 mm[Hg]Bender SALAM [facility]06-27-2022 11:15-0400 Diastolic blood avkuqjur89 mm[Hg]Bender SALAM [facility]06-27-2022 11:15-0400Heart rate86 /minMaher SALAM [facility]06-27-2022 11:15-0400 Respiratory rate18 /minMaher SALAM [facility]06-27-2022 11:15-6353LrI1% (BldA) [Mass fraction]97 %Bender SALAM [facility]06-27-2022 11:15-0400 Systolic blood ojiibowp502 mm[Hg]Bender SALAM [facility]06-27-2022 11:10-0400 Diastolic blood scslqugu271 mm[Hg]Bender SALAM [facility]06-27-2022 11:10-0400Heart rate85 /minMaher SALAM [facility]06-27-2022 11:10-0400 Respiratory rate14 /minNapoleon SALAM [facility]06-27-2022 11:10-0171GoH8% (BldA) [Mass fraction]97 %[facility] JAS [address] [place], [place] 1913406-27-2022 11:10-0400 Systolic blood bwtxfejd299 mm[Hg][facility] [address] [place], [place] 1913406-27-2022 11:02-0400Body iagyuqufjkp79.34 [degF][facility] JAS [facility]06-27-2022 10:27-0400Blood Pressure LocationD[facility] SALQIANA [facility]06-27-2022 10:23-0400Blood Pressure [facility] JAS [facility]-27-2022 10:23-0400Body cyrutdocwwk77.24 [degF][facility] AVTAR [facility]05-17-2022 09:53-0400Blood Pressure Locationonofre Gomez [phone]-Ecyad[address] [place] [address] [facility] [id number] 09:53-0400Body vkooyuoycyb34.7 [degF]Nereyda Gomez [phone]-[facility]bmjsC[facility] [id number] 09:53-0400Diastolic blood bbchhakv47 mm[Hg] Nereyda Patricia [phone]-VviteC[facility] [id number] 09:53-0400Heart rate73 /minBeth Patricia [phone]-FhduxCleveland Clinic [facility] 05-17-2022 09:53-2500GzY6% (BldA) [Mass fraction]96 % Nereyda Gomez [phone]-VvaadCleveland Clinic [facility] 05-17-2022 09:53-0400Systolic blood mm[Hg] Nereyda Gomez [phone]-MxhevCleveland Clinic Marymount [facility] Encounters Encounter DateEncounter TypeCare ProviderFacilityStart: 50-30-1095qafrpjadxvpatricia LOUISEFacility:NAV LopezwalkStart: 09-20-2025 End: 35-85-9778Rpmyxr Maxine Chicas DPM Work Phone: noms CI PODIATRYStart: 09-20-2025 End: 25-72-3489Huzdsk flowsPhoenix Chicas DPM Work Phone: noms CI PODIATRYStart: 09-20-2025 End: 67-74-4386Zqaxxxk encounter procedureBlaise Chicas DPM Work Phone: noms CI PODIATRYComment on above:Verruca plantaris (Primary Dx); Foot pain, right; Diabetes mellitus due to underlying condition with diabetic polyneuropathy, unspecified whether care home insulin use (HCC); Pain due to onychomycosis of toenails of both feetStart: 09-20-2025 End: 78-47-7939vfcjgjlstdZPQBGXHL A BROWNNot AvailableStart: 09-11-2025 End: 27-36-2308Zdeqftsharon Joy MD Work Phone: noms [place] DermatologyStart: 09-11-2025 End: 84-16-1609Cuqquhsharon Joy MD Work Phone: noms [place] [facility]ermatologyStart: 09-11-2025 End: 29-57-6372Kdvanz outpatient visit 15 minutesEmviviane Joy MD Work Phone: [facility] DermatologyComment on above:Seborrheic keratosis (Primary Dx); Actinic keratosis; Lentigines; Neoplasm of unspecified behavior of bone, soft tissue, and skinStart: 09-11-2025 End: 01-97-8519rlexhkfmhiCQJSY A PETITTINot AvailableStart: 09-04-2025 End: 91-34-0709lorrkyqzsoQohwtvf M Hoy-LAB Path Spec [place] HospStart: 09-04-2025 End: 50-78-1989Kosuhbqr ReferredVan Fernandez MD-LAB [facility] Start: 08-22-2025 End: 60-32-2202Pviimsbls Duarte Nam [facility] Neurology 111 Start: 08-01-2025 End: 69-27-5800gcaxuzquovAWQNTVC [facility] Hospitaltart: 07-30-2025 End: 81-11-6893efhdufgqbuMULE [facility] Institutetart: 07-27-2025 End: 58-66-2847Tyiedqsharon Montoya MD Work Phone: [facility] NEUROLOGYStart: 07-27-2025 End: 44-97-2665Gkxfmjsharon Montoya MD Work Phone: noms NEUROLOGYStart: 07-27-2025 End: 71-86-5615rsyliqkhemQXQY D BEJNot AvailableStart: 07-27-2025 End: 58-43-8038Jqycym outpatient visit 25 minutesBarrie Montoya MD Work Phone: [facility] NeurologyComment on above: Tremor (Primary Dx); Neurogenic pain; Carotid stenosis, bilateral; Sequelae of cerebral infarction; JOSIAH (obstructive sleep apnea); B12 deficiency; Cervical paraspinal muscle spasmStart: 07-10-2025 End: 12-42-9784Gxpovlsharon Montoya MD Work Phone: noms NEUROLOGYStart: 07-10-2025 End: 75-01-9227Hsodun flowsPallavi Montoya MD Work Phone: noms NEUROLOGYStart: 07-10-2025 End: 44-12-0213Cykdwc outpatient visit 25 minutesBarrie Montoya MD Work Phone: noms [facility] NeurologyComment on above: Tremor (Primary Dx); Neurogenic pain; Carotid stenosis, bilateral; Sequelae of cerebral infarction; JOSIAH (obstructive sleep apnea); Cervical paraspinal muscle spasm; B12 deficiencyStart: 07-10-2025 End: 74-82-8533fjmlqryzyyTEDV D BEJNot AvailableStart: 06-28-2025 End: 18-19-9710Thayqt Maxine Chicas DPM Work Phone: noms CI PODIATRYStart: 06-28-2025 End: 94-88-9368Ofgkam Maxine Chicas DPM Work Phone: noms CI PODIATRYStart: 06-28-2025 End: 65-42-6436Gerwfod encounter procedureBlaise Chicas DPM Work Phone: noms CI PODIATRYComment on above:Verruca plantaris (Primary Dx); Foot pain, right; Diabetes mellitus due to underlying condition with diabetic polyneuropathy, unspecified whether salvage determiner insulin use (HCC); Pain due to onychomycosis of toenails of both feetStart: 06-28-2025 End: 03-27-0996zhjanclwskYPUCXKTO A BROWNNot AvailableStart: 06-18-2025 End: 93-43-7385qndwdxxvphGTUQME [facility] Start: 06-11-2025 End: 90-93-1942gwtfothemeTOSJNEKO E PERRYFacility:NAV BellevueStart: 06-11-2025 End: 33-79-9713Nlgpwbk encounter procedureJENNIFER E SHARA [facility] start: 05-28-2025 End: 62-61-0401fitrnnwrouSQDZ [facility] Institutetart: 72-71-0572Fpvlepecry and management of inpatientADAM SNChildren's Hospital of Columbustart: 26-41-5782Hjiyfzpcbl and management of inpatientABHISHEK MAANWooster Community Hospitaltart: 83-57-3802Nejjhikogd and management of inpatientGEORGE MOUKARBUniversity Hospitals Lake West Medical Centertart: 68-13-0710Yzhpirouvq and management of inpatientRAGHEB ASSKnox Community Hospitaltart: 87-02-2332Lnfjgpraso and management of inpatientHANI SAADUSamaritan Hospitaltart: 05-15-2025 End: 62-18-0277auyhutojcqDLX [facility] Centertart: 35-49-6592Mfmivtxflc and management of inpatientCONNIE [facility] Medical Centertart: 18-25-7898Tubmvmrrxu and management of inpatient NEDRA [facility] Medical Centertart: 69-16-9487Qurikdhgnv and management of inpatientCONNIE [facility] Medical Centertart: 30-03-5481Nbfkxcpqav and management of inpatientBABAR SANAULLGreen Cross Hospitaltart: 05-10-2025 End: 83-22-5930Aerigcbbjj and management of inpatientMOHAMAD AKILUniSt. Francis Hospitaltart: 05-08-2025 End: 66-48-4004Iokhsc flowsheetMony Herron ELECTRO PLATER Work Phone: noms NEUROLOGYStart: 05-08-2025 End: 45-01-0138Ourqvi flowsheetMony Herron ELECTRO PLATER Work Phone: noms NEUROLOGYStart: 05-08-2025 End: 75-72-8565Mxcwlo outpatient visit 40 minutesFetresa Herron ELECTRO PLATER Work Phone: noms SWS NEUR BComment on above:Benign essential tremor (Primary Dx); Neurogenic pain; Sequelae of cerebral infarction; Cervical paraspinal muscle spasm; JOSIAH (obstructive sleep apnea); Carotid stenosis, bilateral; PolyneuropathyStart: 05-08-2025 End: 29-82-2202ifnjjtxqgpYDXFDOZ Ericka HERRONMirella AvailableStart: 04-30-2025 End: 52-22-6351uiffwlfjaoLVNFLI [facility] Start: 04-14-2025 End: 10-30-1007Ydqkylvesl and management of inpatientDO Ronobir Mesha KARTIK Facility:FTMCStart: 04-14-2025 End: 48-53-2050Zquavunoq department patient visitA[facility]a [facility] Ambulatory PPGStart: 10-35-5024qsnvnwnlyeBKBJMRUBlack Hills Surgery Center Ambulatory PPGStart: 55-22-8193Unubjmorc department patient visitAstrit Sergio InduFacility:FTMCStart: 04-14-2025 End: 16-80-1417Bgudfabrsx and management of inpatientRonobir Mesha VERDUGO [facility] Start: 04-12-2025 End: 17-52-7801Sxtxzz flowsPhoenix Chicas DPM Work Phone: noMS CI PODIATRYStart: 04-12-2025 End: 66-63-6137Huxetn flowsheetBlaise Marroquin Brown DPM Work Phone: NOMS CI PODIATRYStart: 04-12-2025 End: 27-86-5204Bhksxbq encounter procedureBlaise Chicas DPM Work Phone: noms CI PODIATRYComment on above:Verruca plantaris (Primary Dx); Foot pain, right; Diabetes mellitus due to underlying condition with diabetic polyneuropathy, unspecified whether salvage determiner insulin use ([facility]); Pain due to onychomycosis of toenails of both feetStart: 04-12-2025 End: 41-27-8137djnrffblfsRNRBRDFR A BROWNNot AvailableStart: 04-10-2025 End: 01-07-1478Bjbbmt Kemi Montoya MD Work Phone: noMS BM NEUROLOGYStart: 04-10-2025 End: 85-83-5265Piqang Kemi Montoya MD Work Phone: noms BM NEUROLOGYStart: 04-10-2025 End: 50-05-5481Mvqbhz outpatient visit 25 minutesBarrie Montoya MD Work Phone: NOMS SWS NEUR BComment on above:Benign essential tremor (Primary Dx); Neurogenic pain; Sequelae of cerebral infarction; Cervical paraspinal muscle spasm; JOSIAH (obstructive sleep apnea); Carotid stenosis, bilateralStart: 04-10-2025 End: 63-10-2675nucazmykkyIAQF D BEJNot AvailableStart: 03-12-2025 End: 40-32-7604bphzuskqcqPIAKTQ [facility] Start: 03-08-2025 End: 07-96-0636Xvxsyz Maxine Chicas DPM Work Phone: NOMS CI PODIATRYStart: 03-08-2025 End: 16-65-3032Bmgmat Maxine Cara Dao DPM Work Phone: NOMS CI PODIATRYStart: 03-08-2025 End: 63-24-6937Awreaq follow up visit related to original Jorge Cara Dao DPM Work Phone: NOMS CI PODIATRYComment on above:Verruca plantaris (Primary Dx); Foot pain, right; Diabetes mellitus due to underlying condition with diabetic polyneuropathy, unspecified whether salvage determiner insulin use ([facility]); Pain due to onychomycosis of toenails of both feetStart: 03-08-2025 End: 09-74-1023rbfhkatqalMQMZHTKT A BROWNNot AvailableStart: 02-28-2025 End: 03-76-9850jftvmskjljYGRDIBSelect Medical Specialty [facility] Start: 47-56-9840zkkjvjneuqFQUZTLRBlack Hills Surgery Center Ambulatory PPGStart: 02-14-2025 End: 36-16-2648Pgbtxffjp department patient visitAvera [facility] Ambulatory PPGStart: 01-03-2025 End: 21-28-1991tlbiyxonxbQOSPDW KAWWooster Community Hospitaltart: 12-14-2024 End: 05-77-8179ezjytmxpzrDAUMMY MOUKARBProMedica Defiance [facility] Hospital Start: 12-04-2024 End: 09-16-3094oewfqurwvkMPPKXUS NKANSAH-AMANKRAFacility:EU NorwalkStart: 12-04-2024 End: 59-04-8986Uvvytws encounter procedureMARQUIS LOUISE [facility] Start: 11-30-2024 End: 19-09-4448Dyhjvs Maxine Chicas DPM Work Phone: noMS CI PODIATRYStart: 11-30-2024 End: 86-25-7801Owodre Maxine Chicas DPM Work Phone: NOMS CI PODIATRYStart: 11-30-2024 End: 27-81-4537Wvwqzco encounter procedureBlaise Chicas DPM Work Phone: noMS CI PODIATRYComment on above:Verruca plantaris (Primary Dx); Foot pain, right; Diabetes mellitus due to underlying condition with diabetic polyneuropathy, unspecified whether care home insulin use ([facility]); Pain due to onychomycosis of toenails of both feetStart: 11-30-2024 End: 56-68-7932boldnljifbYIWHTNHD A BROWNNot AvailableStart: 11-06-2024 End: 30-46-8701svfputfjxgPtlbjja R WATERSFacility:EU BellevueStart: 11-06-2024 End: 78-48-4311Jmibkhh encounter procedureMejia SINGH [facility] Alberto start: 11-02-2024 End: 76-91-3216naeiogtnmnUSUHQIX NKANSAH-AMANKRAFacility:EU NorkStart: 11-02-2024 End: 43-43-1877Urhxdum encounter procedureKSAWYERBENA NKANSAH-AMANKRA [facility] [place] Start: 10-30-2024 End: 16-12-2184tmzujmoitxGtxmgcw R WATERSFacility:CD:[id number]: 10-25-2024 End: 68-31-8251fucicxqtqpZAEDBBC NKANSAH-AMANKRAFacility:EU BellevueStart: 10-23-2024 End: 11-35-4508fwmqoizpeqNSQZLAX NKANSAH-AMANKRAFacility:FTMCStart: 10-23-2024 End: 98-42-5574Gsktiaw encounter procedureKSAWYERBENA NKANSAH-AMANKRA [facility] Start: 10-02-2024 End: 24-36-5364ipqrdxfgsdKXHHWWC NKANSAH-AMANKRAFacility:EU NorkStart: 09-25-2024 End: 18-42-6111lnhbgaildzYSTEIXZ NKANSAH-AMANKRAFacility:FTMCStart: 09-25-2024 End: 14-26-4508Glfqzid encounter procedureKWABENA NKANSAH-AMANKRA [facility] Start: 09-14-2024 End: 31-38-0242Lhdapl flowsPhoenix Chicas DPM Work Phone: NOMS CI PODIATRYStart: 09-14-2024 End: 24-59-1307Gcdkmc flowsheetBlaise Chicas DPM Work Phone: noms CI PODIATRYStart: 09-14-2024 End: 99-67-7583Qloejhk encounter procedureSachigregg Chicas DPM Work Phone: noms CI PODIATRYComment on above:Verruca plantaris (Primary Dx); Foot pain, right; Diabetes mellitus due to underlying condition with diabetic polyneuropathy, unspecified whether care home insulin use ([facility]/HCC); Pain due to onychomycosis of toenails of both feetStart: 08-24-2024 End: 08-19-1712Zrdmvg Gabino Joy MD Work Phone: noms SWS DERMStart: 08-24-2024 End: 51-80-5563Zmqkfr tarikEmviviane Joy MD Work Phone: noms SWS DERMStart: 08-24-2024 End: 47-60-6954Yzljng outpatient visit 15 minutesEmviviane Joy MD Work Phone: noms SWS DERMComment on above:Melanocytic nevus of trunk (Primary Dx); Actinic keratosis; Lentigines; Seborrheic keratosisStart: 83-74-1276mtkjiemikfNJFOABDJessica LOUISE [facility] Hospitalrt: 30-54-2260lblutfjkdtVWFDKUSJessica LOUISEFacility: [place]uskyStart: 08-14-2024 End: 29-25-3818Qqjnkcdqu encounterBarrie Montoya MD Work Phone: noms [facility] NEURO 111Start: 08-08-2024 End: 39-60-6684qyydtlyggjUPXBMYDJessica LOUISEFacility:[facility] HospitalkStart: 08-08-2024 End: 82-36-8250Acahuwr encounter procedureMARQUIS LOUISE [facility] Start: 08-03-2024 End: 67-78-3761Wmwoym flowsheetNicholas A Brown DPM Work Phone: noMS CI PODIATRYStart: 08-03-2024 End: 13-98-8003Ltkcof flowsheetNicholas A Brown DPM Work Phone: noms CI PODIATRYStart: 08-03-2024 End: 01-84-7298Nkoyzeu encounter procedureNicholas A Brown DPM Work Phone: noms CI PODIATRYComment on above:Verruca plantaris (Primary Dx); Foot pain, right; Xerosis cutisStart: 08-01-2024 End: 36-20-3198Pygaki Kemi Montoya MD Work Phone: noms BM NEUROLOGYStart: 08-01-2024 End: 13-50-8217Yvbcqg Kemi Montoya MD Work Phone: noms BM NEUROLOGYStart: 08-01-2024 End: 33-73-9434Nfybaz outpatient visit 25 minutesBarrie Montoya MD Work Phone: noms SWS NEUR BComment on above:Neurogenic pain (Primary Dx); Benign essential tremorStart: 07-20-2024 End: 10-39-9531Akizio flowsheetNicholas A Brown DPM Work Phone: NOMS CI PODIATRYStart: 07-20-2024 End: 48-39-0088Ngklqy flowsheetNicholas A Brown DPM Work Phone: noMS CI PODIATRYStart: 07-20-2024 End: 09-43-8283Xutjktg encounter procedureNicholas A Brown DPM Work Phone: noMS CI PODIATRYComment on above:Verruca plantaris (Primary Dx); Foot pain, right; Xerosis cutisStart: 07-06-2024 End: 82-11-8842Jbwqav flowsheetNicholas A Brown DPM Work Phone: noms CI PODIATRYStart: 07-06-2024 End: 58-73-7281Domxxklissett Chicas DPM Work Phone: noms CI PODIATRYStart: 07-06-2024 End: 84-25-9698Dschff outpatient visit 15 minutesNicumm Chicas DPM Work Phone: noms CI PODIATRYComment on above:Xerosis cutis (Primary Dx); Verruca plantaris; Foot pain, right; Diabetes mellitus due to underlying condition with diabetic polyneuropathy, unspecified whether salvage determiner insulin use ([facility]/HCC); Onychomycosis; Toe pain, bilateralStart: 10-14-2023 End: 44-14-0365Ofdnbma encounter procedureBeth A mParticle 179-6925Vqslis-EasmdCleveland Clinic Marymount Hospital [facility] Start: 10-01-2023 End: 71-48-2901Ehpqipm encounter procedureBeth A mParticle [facility] start: 10-01-2023 End: 33-58-4043Qqatmbq encounter procedureBeth A mParticle [phone]-KvfzvCleveland Clinic Mary[facility] Hospital [facility] Start: 09-13-2023 End: 83-01-2068Mmanere encounter procedureBeth A Patricia [phone]-VvadnCleveland Clinic Mary[facility] Start: 06-10-2023 End: 39-45-2774Kxdfgqt encounter procedureBeth A Patricia [phone]-LniidCleveland Clinic [facility] Start: 04-15-2023 End: 95-64-8842Xop Drop offBeth A Patricia [facility] Start: 04-13-2023 End: 14-14-1204Hrzcrky encounter procedureMaynoronofre Gomez 320-5590Hzzcql-QgxqkCleveland Clinic [facility] Start: 03-24-2023 End: 30-48-5670vdkhvlepwmNI DINWESLEY LINDAFacility:L8Ujjls: 02-27-2023 End: 65-97-7906tslmoegpuuPL VAN HOY .Facility:U6Xtnzn: 12-28-2022 End: 96-59-2875otgoszhlakMX DINWESLEY LINDAFacility:Y1Ngqrf: 11-16-2022 End: 67-81-6163goxkhbmuygRE DINWESLEY LINDAFacility:G9Wydmh: 11-02-2022 End: 90-79-3427ggzeiwufcsOB VAN HOY .Facility:X8Flynr: 07-18-2022 End: 52-53-9289Sewsyfgqsg and management of inpatientDR VAN HOY .Facility:H1 Start: 07-13-2022 End: 29-32-7193vzpkpkfjcaEC VAN HOY .Facility:F4Gsewc: 07-01-2022 End: 71-81-3533dsyiggqzcgAZ CLARIBEL COLEacility:V6Hpzac: 06-16-2022 End: 67-81-4430uvdwgdjqnnOK VAN HOY .Facility:L9Unkzv: 06-09-2022 End: 93-49-8993Eecgudz encounter Roberonofre Gomez [phone]-GadeiCleveland Clinic Marymount Hospital [facility] Start: 06-08-2022 End: 24-06-8791cclyrrztklFXJUTQRV ALIFacility:T8Etxef: 05-11-2022 End: 65-17-0375Gaeopyz encounter procedureMaher MARKAM [facility] Start: 04-28-2022 End: 64-65-0041hioeleramfCR VAN HOY .Facility:O8Kftsy: 03-31-2022 End: 25-90-9597Hwlfmyf encounter procedureBeonofre Cara Patricia [phone]-XzihzCleveland Clinic [facility] Start: 2019 End: 75-74-0517Imwphmj encounter procedureDEFAULT PHYSICIANFacility:[facility] Procedures DateProcedureProcedure DetailPerforming ClinicianStart: 95-80-1039EMYX / NAIL BIOPSYEmviviane Joy MD Work Phone: Start: 73-17-7983SFCACBHAONG SKIN LESIONEmviviane Joy MD Work Phone: Start: 04-90-7927GSQJYROWOEJ SKIN LESIONEmviviane Joy MD Work Phone: Start: 08-03-1689XedkkgsvedjYvuyw SALAM Comment on above:2 polyps, diveticulosis, IHStart: 79-14-2037TkcmkjwsnsxgfEajh Steinmetz Back structure, excluding neck (body structure)Nereyda Patricia CholecystectomyBeonofre Patricia ColonoscopyNereyda Patricia History of hernia repairBeonofre Patricia TonsillectomyNereyda Patricia Plan of Treatment DateCare ActivityDetailAuthorStart: 09-10-2026 End: 87-15-4550Eildyaz encounter ghxilyyxr93/27/2026 1:15 PM EDT Office Visit [facility] [address] [place] [address] Rodney Joy MD [address] [place] [address] [facility] DermatologyStart: 12-11-2025 End: 52-25-7767Wgwhxrh encounter pumfwajap91/27/2026 1:15 PM EST Office Visit [facility] [address] [place] [address] Hanane Chris MD [address] [place] [address] [facility] DermatologyStart: 10-09-2025 End: 89-25-1478Vbikbac encounter procedureNOMS SWS NEUR BStart: 09-20-2025 End: 91-46-2733Afgbdjp encounter procedureNOMS CI PODIATRYComment on above: Verruca plantaris (Primary Dx); Foot pain, right; Diabetes mellitus due to underlying condition with diabetic polyneuropathy, unspecified whether care home insulin use (HCC); Pain due to onychomycosis of toenails of both feetStart: 09-18-2025 End: 01-73-8308Fltjxje encounter rhkruazzd12/04/2025 12:30 PM EST Office Visit [facility] [address] [place] [address] Barrie Montoya MD [address] [facility] [place] [phone] [facility] Start: 09-11-2025 End: 03-70-3288Ohcdgcw encounter procedureNOMS SWS DERMComment on above:Arrived Start: 54-77-6504Dgtqz cultureAvita Health System Ontario Hospitaltart: 09-04-2025 Bacteria identified in Urine by CultureUrine [facility] System West Campustart: 52-83-5763AQRZN-19 Vaccine ( season)COVID-19 Vaccine ( season)NOMS HealthcareStart: 08-23-2025 End: 46-48-6104Wicjwqz encounter vnwbqxzou66/09/2025 10:50 AM EDT Office Visit [facility] DERM [address] [place] [address] Rodney Joy MD [address] [place] [address] NOMS SWS DERMStart: 11-81-0257Csqepxxfg vaccination Influenza Vaccine (#1)NOMS HealthcareStart: 07-10-2025 End: 76-97-1442Ntlrexf encounter procedureNOMS SWS NEUR BComment on above: ArrivedStart: 06-28-2025 End: 32-47-1759Vjjkzfx encounter ooeysvlrq45/14/2025 11:50 AM EDT Office Visit [facility] [address] [facility] [address] [place] [address] Blaise Chicas DPM [address] [address] Verruca plantaris (Primary Dx); Foot pain, right; Diabetes mellitus due to underlying condition with diabetic polyneuropathy, unspecified whether salvage determiner insulin use (HCC); Pain due to onychomycosis of toenails of both feetNOMS CI PODIATRYComment on above:Verruca plantaris (Primary Dx); Foot pain, right; Diabetes mellitus due to underlying condition with diabetic polyneuropathy, unspecified whether care home insulin use (HCC); Pain due to onychomycosis of toenails of both feetStart: 06-21-2025 End: 01-82-2264Tooxgla encounter bneyipxtg49/07/2025 10:40 AM EDT Office Visit [facility] [address] [facility] [address] [place] [address] Blaise Chicas DPM [address] [address] NOMS CI PODIATRYStart: 05-08-2025 End: 24-07-3436Dfsbgdm encounter cthltfbeb59/24/2025 2:00 PM EDT Office Visit [facility] NE[facility] B [address] [place] [phone] Mony Herron, ELECTRO PLATER [address] [place] [address] ArrivedNOMS SWS NEUR BComment on above: ArrivedStart: 04-12-2025 End: 35-02-2802Xruqllj encounter procedureNOMS CI PODIATRYComment on above: Verruca plantaris (Primary Dx); Foot pain, right; Diabetes mellitus due to underlying condition with diabetic polyneuropathy, unspecified whether salvage determiner insulin use ([facility]); Pain due to onychomycosis of toenails of both feetStart: 03-08-2025 End: 40-56-8740Fmspygy encounter vjsqotmpp50/24/2025 9:20 AM EDT Office Visit [facility] [address] [address] Blaise Chicas DPM [address] [address] Verruca plantaris (Primary Dx); Foot pain, right; Diabetes mellitus due to underlying condition with diabetic polyneuropathy, unspecified whether salvage determiner insulin use ([facility]); Pain due to onychomycosis of toenails of both feetNOMS CI PODIATRYComment on above:Verruca plantaris (Primary Dx); Foot pain, right; Diabetes mellitus due to underlying condition with diabetic polyneuropathy, unspecified whether care home insulin use ([facility]); Pain due to onychomycosis of toenails of both feetStart: 02-15-2025 End: 35-09-6171Qyvpfhi encounter vrmyvarjd46/03/2025 8:40 AM EDT Office Visit [facility] [address] [address] Blaise Chicas DPM [address] [address] NOMS CI PODIATRYStart: 11-30-2024 End: 23-57-3887Dpxjqfs encounter procedureNOMS CI PODIATRYComment on above: Verruca plantaris (Primary Dx); Foot pain, right; Diabetes mellitus due to underlying condition with diabetic polyneuropathy, unspecified whether salvage determiner insulin use ([facility]/HCC); Pain due to onychomycosis of toenails of both feetStart: 10-10-2024 End: 99-41-4153Yfeztfs encounter hixuizskt47/26/2024 10:45 AM EST Office Visit [facility] NE[facility] B [address] [phone] Barrie Montoya MD [address] [address] [facility] NEUR BStart: 09-14-2024 End: 04-34-9057Mxuuoli encounter procedureNOMS CI PODIATRYComment on above: Verruca plantaris (Primary Dx); Foot pain, right; Diabetes mellitus due to underlying condition with diabetic polyneuropathy, unspecified whether salvage determiner insulin use (CMS/HCC); Pain due to onychomycosis of toenails of both feetStart: 08-24-2024 End: 95-67-1475Mocnscx encounter procedureNOMS SWS DERMComment on above:Arrived Start: 08-03-2024 End: 74-16-8319Qlpjkrk encounter procedureNOMS CI PODIATRYComment on above: Verruca plantaris (Primary Dx); Foot pain, right; Xerosis cutisStart: 08-01-2024 End: 62-36-9546Ospmcwx encounter phizdnngb16/17/2024 1:30 PM EDT Office Visit [facility] [address] [phone] Barrie Montoya MD [address] [facility] [address] [phone] [facility] NEUR BStart: 08-01-2024 End: 29-20-2733Jeczdjl encounter graevtzby57/17/2024 11:30 AM EDT Office Visit [facility] [address] [phone] Barrie Montoya MD 53[address] [facility] [address] [place] [address] ArrivedNOMS [facility] NEUR BComment on above:ArrivedStart: 07-20-2024 End: [id number] encounter procedureNOMS CI PODIATRYComment on above: Verruca plantaris (Primary Dx); Foot pain, right; Xerosis cutisStart: 06-65-5542Ngkwtfuni vaccinationInfluenza Vaccine (#1)[facility] HealthcareStart: 07-06-2024 End: 17-25-7764Bswuekn encounter hdwjeehyz50/22/2024 8:40 AM EDT Office Visit [facility] [address] [facility] [address] [place] [address] Blaise Chicas, DPM [address] [facility] [address] [place] [address] Verruca plantaris (Primary Dx); Foot pain, right; Diabetes mellitus due to underlying condition with diabetic polyneuropathy, unspecified whether salvage determiner insulin use (CMS/HCC); Onychomycosis; Toe pain, bilateral; Xerosis cutisNOMS CI PODIATRYComment on above:Verruca plantaris (Primary Dx); Foot pain, right; Diabetes mellitus due to underlying condition with diabetic polyneuropathy, unspecified whether care home insulin use (CMS/HCC); Onychomycosis; Toe pain, bilateral; Xerosis cutisStart: 09-26-1026OYdL/Tdap/Td Vaccines (1 - Tdap)DTaP/Tdap/Td Vaccines (1 - Tdap)[facility] HealthcareDermatopathology examDermatopathology exam Pathology and Cytology Timed Neoplasm of unspecified behavior of bone, soft ti ssue, and skin Release Upon Ordering for 1 Occurrences starting 09/11/2025[facility] Work Phone: comment on above:Release Upon Ordering for 1 Occurrences starting 09/11/2025 Immunizations Immunization DateImmunizationNotesCare TgmxwkkkUgunkibf85-35-3759ijrnkn vaccine recombinantJENNIFER SHARA [facility]10-01-2024influenza virus vaccine, unspecified formulationBlaise Brown DPM Work Phone: [facility] InstituteDqqbhdgjeb56-59-4457NNR vaccine, preF A-preF B, recombinantJENNIFER SHARA [facility]10-06-2023influenza virus vaccine, unspecified formulationNicumm Brown DPM Work Phone: [facility] InstituteQnfcpzxwhd73-37-2182KCWK-XsP-8 (COVID-19) mRNAMUL.ORD![id number] Gomez [phone]-UavjdAdams [facility] HealthComment on above:Result Comment: 2023-04-13: [id number]-SjT-1 (COVID-19) mRNA BNT- 162b2 Isela Patricia [phone]-IcidmC[facility]02-17-2021 SARS-CoV-2 (COVID-19) mRNA BNT-162b2 gabyProteostasis Therapeuticsrobbie Patricia [phone]-GygstC[facility] Clinic [facility]01-25-2021 SARS-CoV-2 (COVID-19) mRNA BNT-162b2 Isela Joyametz [phone]-IusrnC[facility] Clinic [facility]12-23-2020 zoster vaccine recombinantJENNIFER SHARA [facility]10-13-2020influenza virus vaccine, unspecified formulationBeonofre Patricia [phone]-JogrdCleveland Clinic [facility]12-16-2019 tetanus toxoid, reduced diphtheria toxoid, and acellular pertussis vaccine, adsorbedJENNIFER SHARA [facility]12-16-2019zoster vaccine recombinantJENNIFER SHARA [facility] Bejswnqj87-28-3242kycjdndyyxll conjugate vaccine, 13 valentNereyda Gomez [phone]-ZtnvvC[facility] Digestive Afquoq85-48-1693 influenza, unspecified formulationNereyda Gomez [phone]-AuhfsC[facility]ive Rkmrom67-29-2389 zoster vaccine, liveNereyda Patricia [phone]-PyachC[facility] Digestive HealthNEGATED: Highlighted row has not occurred!62-60-8537ebxfuceft virus vaccine, unspecified formulationNereyda Gomez [phone]-SmkqvC[facility] Digestive HealthNEGATED: Highlighted row has not occurred!20-44-2360pnyqcegxn virus vaccine, unspecified formulationNereyda Patricia [phone]-YzrqaC[facility] Clinic [facility] Health Payers DatePayer CategoryPayerPolicy [id number] Health [id number] [id number] 2004Medicare [id number] [id number] 1939 [id number] 2.16.840.1.996307.3.57[id number] 2.16.840.1.060951.3.57[id number] 2.840.1.032989.3.57[id number] 2.16.840.1.970705.3.57[id number] 2.16.840.1.421803.3.579.2.73319-28-0052Ejdksyz8232502 2.16.840.1.901194.3.579.[id number] 2.16.840.1.958905.3.579.2.62291-13-8569Dkjswic1661801 2.16.840.1.032019.3.57[id number] 2.16840.1.739619.3.57[id number] 2.16840.1.163044.3.579.2.19658-92-6632Ionjnbb2812465 2.16840.1.762522.3.579.2.82374-31-9562Xtfjeis8631090 2.16840.1.849707.3.579.2.64792-67-5162Fqtzlzk19934592 2.16840.1.755187.3.579.2.44314-52-4147Dcbmvdm59675926 2.16840.1.667509.3.579.2.24711-63-9220Ckbknow87796808 2.16840.1.207138.3.579.2.76231-48-9439Pqdaqwn95948623 2.16840.1.083190.3.579.2.04496-36-7946Obtcldo83265812 2.16.840.1.295219.3.579.2.84429-44-8462Hlqiwba781542462 2.16840.1.441617.3.579.2.023274-88-5250Khysvbi833089803 2.16.840.1.462233.3.579.2.105924-76-8347Kmqkaxf898646877 2.16.840.1.842453.3.579.2.523550-59-9371Gazdxki765879920 2.16840.1.041554.3.579.2.962006-80-0168Fknfbfg293436552 2.16840.1.915879.3.579.2.547587-23-6080Fpoqoqv573936116 2.16840.1.640205.3.579.2.351619-62-8758Ribexod949622132 2.16840.1.386628.3.579.2.173561-72-5772Kcmoxqf372594340 2.16840.1.071179.3.579.2.092088-87-9453Ixdxbhg427925489 2.16840.1.075395.3.579.2.656728-63-1036Egtonhp88466319 2.16840.1.927738.3.579.2.43254-03-2319Nyldiko43608442 2.16840.1.661304.3.579.2.98634-70-5284Dtkrbhl17167579 2.16840.1.448999.3.579.2.82078-35-5343Uivouop75628676 2.16840.1.047999.3.579.2.78788-04-6175Lfwzhqc48720696 2.16840.1.209939.3.579.2.79696-98-2341Ebqsiie03783426 2.16840.1.364214.3.579.2.52132-31-5622Frouhyj30615053 2.16840.1.212951.3.579.2.63852-19-7769Gulvoqf85903269 2.16840.1.510154.3.579.2.41975-87-5830Naluxpq14827041 2.16840.1.331804.3.579.2.02060-37-4409Qamoojg60098796 2.16840.1.678555.3.579.2.32909-16-1194Lzmkkmi81574938 2.0.1.045890.3.579.2.12882-54-9830Bprfzsq85031462 2.0.1.121529.3.579.2.57484-27-6881Nuiyjrv57073679 2.840.1.006259.3.579.2.68756-49-9420Hmqzfcd33358975 2.0.1.150137.3.579.2.14981-40-4662Jcgjopl28380489 2.0.1.481674.3.579.2.70022-40-5749Wpvegez99033155 2.0.1.317414.3.579.2.829100-44-2705Zeyrdvn52535971 2.16840.1.885246.3.579.2.935218-11-1786Gpbyaaw62083783 2.840.1.630677.3.579.2.245338-78-3491Jdstegb83773143 2.16840.1.664063.3.579.2.690311-04-9273Buwuifg95311085 2.840.1.708146.3.579.2.148583-09-5367Wllbsgu63920732 2.16.840.1.905895.3.579.2.580855-55-2193Ngsjyxx1433879 2.16.840.1.514225.3.579.2.131413-98-9327Esgwgfv8408958 2.16.840.1.738471.3.579.2.425202-41-3029Jzynofx2802673 2.16.840.1.499644.3.579.2.639387-07-1068Pacdrla4419104 2.16.840.1.959[id number] 2.16.840.1.411961.3.579.2.531 Social History DateTypeDetailFacilityStart: 03-31-2022 End: 83-36-9934Xigndpl smoking statusEx-smoker (finding)[facility] Start: 01-27-2023 End: 31-61-6973Qwtmryy smoking statusNeverC[facility] Clinic [facility] Start: 08-24-2024 End: 79-41-1199Pgs Assigned At BirthMalMcCull[facility] Start: 55-82-2395Hatjlhg smoking status NHISTobacco smoking consumption unknownNOMS HealthcareStart: 08-03-2024 End: 32-54-7577Uoaxspgit beverage intakeLifetime non-drinker (finding)[facility] HealthcareStart: 09-27-2175Omecltl Commentcaffeine 1-2 cups/dayN[facility] Start: 16-13-5650Dza assigned at birthNot on fileNOMS HealthcareHistory of tobacco useCurrent smokerNOMS HealthcareHistory of tobacco useCigarette Smoker [facility] HealthcareStart: 98-32-5650Llialva use and exposureSmokeless tobacco non-userNOMS HealthcareStart: 08-24-2024 End: 46-13-0913Wfvkymk of Social functionNOMS HealthcareSexual OrientationUk Healthcare Start: 65-11-0508KnoHpdf (finding)[facility] Hospitaltart: 11-52-6960Lwz Assigned At [facility] Functional Status ZyxgOdjaffyyiqFfwdcjWlxkajqj51-88-7707Taertizaju StatusN/AExec[facility] [place] 083052-19-2024Functional StatusN/A[facility] [place] 083052-09-2024Functional StatusN/A [facility]11-11-2024Functional StatusN/[facility]09-24-2024Functional StatusN/AExec[facility] of [place] 083051-30-2023Functional StatusN/[facility] Digestive Basixc93-47-8147Holdqagsea StatusNoC[facility] Clinic [facility]ive Cevjvh81-13-4636Nxlwyhbjsc StatusN/[facility]ive Tdakfh53-85-2536Xhvjrkaqko StatusN/[facility] 881712-60-1355Halfzimquz StatusN/[facility] Clinical Notes 03-31-2022 to 09-20-2025 Note Date & GlotMfazEqsuewyf40-28-1809 History of Present illness Narrative* Blaise Chicas, LUIS E - 09/20/2025 11:40 AM EST Patient: Nadir Hamilton Kirit : [...] Strain: Low Risk (05/10/2025) Received from [facility] Overall Financial Resource Strain (CARDIA) Difficulty of Paying Living Expenses: Not hard at all Food Insecurity: No Food Insecurity (05/10/2025) Received from [facility] Hunger Vital Sign Within the past 12 months, you worried that your food would run out before you got the money to buymore.: Never true Ran Out of Food in the Last Year: Not on file Transportation Needs: No Transportation Needs (05/10/2025) Received from [facility] Transportation In the past 12 months, has lack of transportation kept you from medical appointments or from getting medications?: No Lack of Transportation (Non-Medical): Not on file Physical Activity: Not on file Stress: Not on file Social Connections: Not on file Intimate Partner Violence: Unknown (05/10/2025) Received from [facility] Humiliation, Afraid, Rape, and Kick questionnaire Within the last year, have you been afraid of your partner or ex-partner?: No Emotionally Abused: Not on file Physically Abused: Not on file Sexually Abused: Not on file Housing Stability: Low Risk (05/10/2025) Received from [facility] Housing Stability Vital Sign In [...] and negative PT pedal pulses NEURO: 5.07 Eugene Sheldon monofilament test diminished to digits and forefoot bilaterally 125Hz tuning fork diminished to 1st MPJ bilaterally ORTHO: Positive pain on palpation to nails 1 through 10 Minimal pain on palpation of right foot lesion ASSESSMENT 1. Verruca plantaris 2. Foot pain, right 3. Diabetes mellitus due to underlying condition with diabetic polyneuropathy, unspecified whether salvage determiner insulin use (HCC) 4. Pain due to [...] gear Blaise Chicas DPM documented in this encounterThe Rehabilitation InstituteNqfoflktqy93-90-1692 History of Present illness Narrative* Rodney Joy [...] limited to risks of scarring, darker or unit clerk pigmentary changes, recurrence, incomplete removal and infection. [...] TISSUE, AND SKIN Left Knee - Anterior [place] papule - Lesion biopsy Type of biopsy: [...] year, pending bx results documented in this encounterThe Rehabilitation InstituteLwbjpqrgwg12-47-5325 Telephone encounter Note* Telephone Encounter - Sammy Esposito - 08/23/2025 10:48 AM EDT Radha called and advised of message, she took verbal order from me. The Rehabilitation InstituteXvwiackvil70-85-7724 Miscellaneous Notes* Telephone Encounter - Sammy Esposito [...] anything. Daughter said pt is currently at [facility] and asked I call mgr Garcia .LM for Radha asking for to let us know where to send orders. documented in this encounterThe Rehabilitation InstituteNjrwhfkrpy18-72-3817 Telephone encounter Note* Telephone Encounter - Claritza [...] anything. Daughter said pt is currently at [facility] and asked I call mgr Garcia .LM for Radha asking for RC to let us know where to send orders. The Rehabilitation InstituteQelhujuken86-28-4976 NoteComKay[facility] Patient: Nadir Beth; 85 y.o. Visit date: 08/01/25 Reason for today's visit: Follow up for CKD stage 3, Hypertension, Edema/ Fluid overload, and Electrolytes disturbances SUBJECTIVE: BACKGROUND: Nadir Beht is a 85 y.o. male has a past medical history of Abnormal ECG, Arrhythmia, Atrial fibrillation (CMS/HCC), CHF (congestive heart failure) ([facility]/HCC), Chronic kidney disease, COPD (chronic obstructive pulmonary disease) ([facility]/HCC), Coronary artery disease, Diabetes mellitus (CMS/HCC), Heart valve disease, Hypertension, Pericardial effusion, Sleep apnea, and Stroke (CMS/[facility]). History of paroxysmal atrial fibrillation maintained on anticoagulation with Eliquis, aortic stenosis, renal artery stenosis, and hypertension. He had stenting of the left renal artery from the left radial approach on 05/01/2015 (Express SD 6 mm x 18 mm stent). He was admitted to the [facility] in August 2022 due to hyponatremia, [...] (Bentyl) 10 mg ca (more content not included)...[facility]09-15-2025 NotePHARMACIST CONSULT - REFERRAL 07/31/25 Referring Provider: Ruy Sullivan CNP Clinic: [facility] Nadir Beth is referred to clinic [...] call patient to schedule. Huong Jean PharmD [facility]25[facility] NoteReferring provider agrees with trying edoxaban. Called patient's daughter and conveyed plan, including how to switch between medications. She asked that medication be sent to the [facility] in [place], [place]. She also provided the phone number for the patient's print production coordinator, Radha [[phone]]. Provided instructions for switching between medications. Provided clinic phone number in case of questions or coverage issues. Huong Jean PharmD [facility] 08/03/25 8:37 [facility]09-15-2025 NotePatient's daughter called to clarify if edoxaban was safe with his aortic valve and kidney disease. Reassured her that the medication had been dose-adjusted for kidney function and that it is safe for his heart valve (patient is s/p TAVR, has no mitral valve stenosis). Huong Jean PharmD [facility] 08/03/25 10:37 [facility]09-15-2025 NotePA was approved through 11/14/25. Called pharmacy and notified them - they will order medication. Huong Jean PharmD [facility] 08/07/25 1:14 [facility]09-15-2025 NoteReceived phone call from the [facility] that patient's edoxaban will require PA. Preferred meds (apixaban and rivaroxaban) are not options due to drug interaction, will need to switch to warfarin if PA is not successful. Cover My Meds stephenson: [id number] Routing to [employer] for completion. Huong Jean PharmD [facility] 08/03/25 10:45 [facility]09-15-2025 NoteCalled Radha (print production coordinator) and she confirmed that edoxaban was picked up and started yesterday (08/09/25). They have discontinued and discarded the Xarelto. He is tolerating the edoxaban well, and they have no further questions. Will follow for labs in 2 months. Huong Jean PharmD [facility] 08/10/25 10:53 [facility]09-15-2025 NoteSUBJECTIVE Reason for Visit: Nadir Beth is a 85 y.o. year old male patient being seen for follow-up appointment. HPI: Nadir Beth is a 85 y.o. year old male with significant medical history of A-fib on Xarelto, hypertension, HFpEF, CKD, recent history of CVA 4 months back, renal artery stenosis transferred from [facility] for acute on chronic heart failure. Patient had history of stroke 4 months back and was in rehab patient has been having progressive lower extremity edema for few days. Patient was advised to increase his Lasix from 20 to 40 mg and blood work was done which showed BNP 6214 and was advised to go to the ED. In [place] ED chest x-ray showed pulmonary vascular congestion [...] on exam. He is scheduled with his traffic operator this week. 06/18/2025 office visit (Dr. Cisneros): [...] available. He continues to be at the [place] for rehab. I will continue current medications [...] mg, Daily cholecalciferol (VITAMIN (more content not included)...[facility]09-12-2025 History of Present illness Narrative* Barrie [...] this office take over JOSIAH.] Split-night study ([facility]), split for AHI >= 5. [...] AEs Hx [facility]IA[facility] - [facility] Failed Semeiology Circadian Noct oxim PSG _ ([facility]) - _ PAPT ([facility]) - AHI=8.1 @ 31/10 (max pressure) MSLT [...] --card) AEs Hx No recent sx. Adm [facility] 04/2025 dysarthria. Onset Semeiology Imaging MR brain (02/2025, [facility]) - rev'd with pt - no report sent - on my review, atrophy mod-sev, 8-10 UBOs, most tiny, 2 mod incl R fro & R splenium ml CTA head (04/2025 [facility]) - stenosis R M1 mod CTA neck (04/2025 [facility]) - 50% B MRA head (02/2025, [facility]) - no stenoses MRA neck (02/2025, [facility]) - no stenoses, dom R vert US carotids (02/2025, [facility]) - < 50% B by velocity, but mod plaque poss causing stenosis CT head (04/2025, [facility]) - hypodensity L caudate 8 mm Testing [...] ANGIOGRAM TAVR 05/11/2025 GALL BLADDER HERNIA REPAIR 1980 RENAL ARTERY STENT 2016 stents kidney Allergies [...] Barrie Montoya M.D. [facility] ? [address] ? [place] [id number] ? ? fax Neurology ? Clinical Neurophysiology ? Epilepsy ? Sleep Disorders ? Clinical Informatics documented in this encounterThe Rehabilitation InstituteNnubaogxbw79-67-8328 History of Present illness Narrative* Barrie Montoya [...] this office take over JOSIAH. Split-night study ([facility]), split for AHI >= 5. [...] this office take over JOSIAH. Split-night study ([facility]), split for AHI >= 5. Afterward, will [...] AEs Hx JOSIAH - [facility] Failed Semeiology Circadian Noct oxim PSG _ ([facility]) - _ PAPT ([facility]) - AHI=8.1 @ 17/12 (max pressure) MSLT [...] --card) AEs Hx No recent sx. Adm [facility] 04/2025 dysarthria. Onset Semeiology Imaging MR brain (02/2025, [facility]) - rev'd with pt - no report sent - on my review, atrophy mod-sev, 8-10 UBOs, most tiny, 2 mod incl R fro & R splenium ml CTA head (04/2025 [facility]) - stenosis R M1 mod CTA neck (04/2025 [facility]) - 50% B MRA head (02/2025, [facility]) - no stenoses MRA neck (02/2025, [facility]) - no stenoses, dom R vert US carotids (02/2025, [facility]) - < 50% B by velocity, but mod plaque poss causing stenosis CT head (04/2025, [facility]) - hypodensity L caudate 8 mm Testing [...] ? [address] ? [place] [address] ? ? fax Neurology ? Clinical Neurophysiology ? Epilepsy ? Sleep Disorders ? Clinical Informatics documented in this encounterThe Rehabilitation InstituteSzuabtsopx29-07-1482 History of Present illness Narrative* Blaise Chicas, LUIS E - 06/28/2025 11:50 AM EDT Patient: Nadir [...] Strain: Low Risk (05/10/2025) Received from [facility] Overall Financial Resource Strain (CARDIA) Difficulty of Paying Living Expenses: Not hard at all Food Insecurity: No Food Insecurity (05/10/2025) Received from [facility] Hunger Vital Sign Within the past 12 months, you worried that your food would run out before you got the money to buymore.: Never true Ran Out of Food in the Last Year: Not on file Transportation Needs: No Transportation Needs (05/10/2025) Received from [facility] Transportation In the past 12 months, has lack of transportation kept you from medical appointments or from getting medications?: No Lack of Transportation (Non-Medical): Not on file Physical Activity: Not on file Stress: Not on file Social Connections: Not on file Intimate Partner Violence: Unknown (05/10/2025) Received from [facility] Humiliation, Afraid, Rape, and Kick questionnaire Fear of Current or Ex-Partner: No Emotionally Abused: Not on file Physically Abused: Not on file Sexually Abused: Not on file Housing Stability: Low Risk (05/10/2025) Received from [facility] Housing Stability Vital Sign In [...] and negative PT pedal pulses NEURO: 5.07 Eugene Sheldon monofilament test diminished to digits and forefoot bilaterally 125Hz tuning fork diminished to 1st MPJ bilaterally ORTHO: Positive pain on palpation to nails 1 through 10 Minimal pain on palpation of right foot lesion ASSESSMENT 1. Verruca plantaris 2. Foot pain, right 3. Diabetes mellitus due to underlying condition with diabetic polyneuropathy, unspecified whether salvage determiner insulin use (HCC) 4. Pain due to [...] gear Blaise Chicas DPM documented in this encounterThe Rehabilitation InstituteBubvkmghuu78-77-5462 NoteUT Cardiology - [facility] Subjective Nadir Beth is a [...] he was referred to see pulmonary at [facility] and daughter wants to know if they can see someone more locally. Patient Active Problem List Diagnosis Aortic valve disorder Atherosclerosis of renal artery Chronic atrial fibrillation (CMS/HCC) Coronary arteriosclerosis Bradycardia Aortic valve stenosis Type 1 diabetes mellitus (CMS/HCC) Type 2 diabetes mellitus with stage 3 chronic kidney disease, without long-term current use of insulin ([facility]/HCC) Stage 3 chronic kidney disease (CMS/HCC) Sleep [...] bladder) Post-void dribbling Pulmonary heart disease, unspecified ([facility]/HCC) Abnormal findings on diagnostic imaging of heart and coronary circulation Primary hypertension Acute congestive heart failure ([facility]/HCC) History of CVA (cerebrovascular accident) Type 2 diabetes mellitus, with long-term current use of insulin ([facility]/HCC) Other hyperlipidemia Chronic atrial fibrillation (CMS/HCC) Chest [...] use: Not Currently Drug use: Never JOHN aNdir is seen in follow up. He is [...] diuretic therapy. He was admitted to the [facility] in August 2022 due to hyponatremia, hyperkalemia and acute kidney injury, leukocytosis secondary to COVID-19 causing dehydration. I saw him on 05/24/2023 and the office and he had significant evidence of volume overload by exam and echocardiogram. I intensified his diuretic regimen. He ended up getting admitted to the [facility] with acute heart failure exacerbation and [...] On 02/14/2025 he was admitted to the [facility] with altered mental statu (more content not included)...[facility] 06-12-2025 NotePatient Education Urology Benign Prostatic [...] Follow these instructions at home: ??? Take sury-vnl-kjxnvos and prescription medicines only as told by [...] content not included)...[facility]07-14-2025 NoteSUBJECTIVE Reason for Visit: Nadir Hamilton Kirit is a 85 y.o. year old male patient being seen for status post TAVR follow-up. HPI: Nadir Beth is a 85 y.o. year old male with significant medical history of A-fib on Xarelto, hypertension, HFpEF, CKD, recent history of CVA 4 months back, renal artery stenosis transferred from [facility] for acute on chronic heart failure. Patient had history of stroke 4 months back and was in rehab patient has been having progressive lower extremity edema for few days. Patient was advised to increase his Lasix from 20 to 40 mg and blood work was done which showed BNP 6214 and was advised to go to the ED. In [place] ED chest x-ray showed pulmonary vascular congestion [...] oral, 3 times daily (more content not included)...[facility]07-03-2025 Note Physical Therapy Physical Therapy Treatment [...] Clicks T-Score: 18 Assessment/Plan PT Assessment PT Assessment/FENDER MECHANIC Summary: The patient tolerated the PT session [...] chair alarm were reconnecte (more content not included)...[facility]07-03-2025 NoteCardiology Inpatient Progress Note Subjective Reason for consult: Acute on chronic HFpEF, hypertension urgency, TAVR. HPI: aNdir Beth is a 85 y.o. year old male with significant medical history of A-fib on Xarelto, hypertension, HFpEF, CKD, recent history of CVA 4 months back, renal artery stenosis transferred from [facility] for acute on chronic heart failure. Patient had history of stroke 4 months back and was in rehab patient has been having progressive lower extremity edema for few days. Patient was advised to increase his Lasix from 20 to 40 mg and blood work was done which showed BNP 6214 and was advised to go to the ED. In [facility] ED chest x-ray showed pulmonary vascular congestion [...] Daily with even (more content not included)... [facility]07-03-2025 NoteDischarge Planning sent updates through [facility] to [facility]. Patient is medically ready for discharge. confirmed facility is able to accept patient today. set up ambulance transport with [facility] for 7:35 PM. Call report # ([phone]. Patient and his family notified. Treatment team and facility notified. DC packet left with patient's physical chart.[facility]07-03-2025 NotePhysical Therapy A PT treatment was attempted, however the patient was unavailable and out of the room. Will continue to follow patient for PT intervention.[facility]07-03-2025 NoteCardiothoracic Surgery Progress Note 05/17/2025 Room: [facility]3184- Subjective Sitting in bed. No complaints. Denies [...] Problems: Primary hypertension Acute congestive heart failure ([facility]) History of CVA (cerebrovascular accident) Type 2 diabetes mellitus, with long-term current use of insulin ([facility]) Other hyperlipidemia Chronic atrial fibrillation ([facility]) Chronic kidney disease Elevated troponin S/P TAVR (transcatheter aortic valve replacement) Aortic stenosis, severe Angina pectoris, unstable ([facility]) Nonrheumatic aortic valve stenosis Plan: S/P TAVR [...] Cardiothoracic Surgery Inpatient from 8am-4pm call Ascom #[phone]. Only use [employer] chat for general questions. If unable to reach Ascom Number call hospital liner machine operator helper for Cardiothoracic Provider Identification Technician. Cardiothoracic Surgery outpatient Office Number [phone]. Cardiothoracic Surgery outpatient .[facility]07-03-2025 Note Attestation signed by Nikolas Gonzalez [...] anticoagulation should be held. Nikolas Gonzalez MD [facility] Pulmonary and Critical Care Medicine Primary Pulmonology Progress Note Patient - Nadir Beth Age - 85 y.o. - 1940 [id number] Date of Admission - 05/10/2025 2:37 AM [...] was admitted as a direct transfer from [place] on 05/10/2025 for acute on chronic heart failure. 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 He presented to the ED on the advice of his physician following an increase in lower extremity edema with associated labs showing a BNP 6200. In the [place] ED he was found to have pulmonary vascular congestion with right sided pleural effusion on chest x-ray, and found to be hypertensive at 190/68, and EKG showed A-fib, he was initially managed medically with lasix and antihypertensives prior to transfer. Patient follows up with Dr. Bland who had scheduled right heart cath on 05/10/2025. At [facility] echo was performed which was unable to [...] ABG: No results found for: PHART , KJN6SHJ , PO2ART , XOZ8MYF , IONCALART No results found for: PHVEN , GQS2DKU , PO2VEN , EER6VRF , IONCALVEN CBC: Results from last 7 [...] 0339 05/14/25 0338 SODIUM (more content not included)...[facility] 05-16-2025 NotePhysical Therapy Patient defers session at this time due to significant fatigue and headache. Patient recently transferred out of MICU status post TAVR on 05/15. PT will check back at a later time to complete session.[facility] 05-16-2025 Note Attestation signed by García [...] Beth Age - 85 y.o. - 1940 [facility] # - [id number] Date of Admission - 05/10/2025 2:37 AM HPI/Hospital Course Subjective Nadir Beth is an 85 y.o. male with a PMH of HFpEF, paroxysmal A-fib on Xarelto, CVA, T2DM, hypertension, renal artery stenosis left renal stent, and hyperlipidemia who was admitted as a direct transfer from [place] on 05/10/2025 for acute on chronic heart failure. 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 He presented to the ED on the advice of his physician following an increase in lower extremity edema with associated labs showing a BNP 6200. In the [place] ED he was found to have pulmonary vascular congestion with right sided pleural effusion on chest x-ray, and found to be hypertensive at 190/68, initially managed medically with lasix and antihypertensives prior to transfer. At [facility] echo was performed which was unable to [...] ABG: No results found for: PHART , YHN8TSO , PO2ART , FIO7APH , IONCALART No results found for: PHVEN , HYO5TPS , PO2VEN , OCG8ZAB , IONCALVEN CBC: Results from last 7 [...] 9.3* Cardiac: Results from (more content not included)...[facility] 05-16-2025 NoteOccupational Therapy Name: Nadir Beth [...] as appropriate. Check No Charge Time attempted: 1004UnPaul[facility]07-02-2025 NoteCardiology Inpatient Progress Note Subjective Reason for consult: Acute on chronic HFpEF, hypertension urgency, TAVR. HPI: Nadir Beth is a 85 y.o. year old male with significant medical history of A-fib on Xarelto, hypertension, HFpEF, CKD, recent history of CVA 4 months back, renal artery stenosis transferred from [facility] for acute on chronic heart failure. Patient had history of stroke 4 months back and was in rehab patient has been having progressive lower extremity edema for few days. Patient was advised to increase his Lasix from 20 to 40 mg and blood work was done which showed BNP 6214 and was advised to go to the ED. In [facility] ED chest x-ray showed pulmonary vascular congestion [...] 95 % -- 0 (more content not included)...[facility]07-02-2025 NoteCardiothoracic Surgery Progress Note 05/16/2025 Room: [address] [place] [address] Nadir Beth is a 85 y.o. male [...] (TTE) limited Result Date: 05/15/2025 1 1 [facility] Heart Station [address] [place] [phone] (fax) Echocardiogram-[facility] Name: NADIR BETH Study Date: 05/15/2025 12:46 PM B/P: 171 mmHg/100 mmHg HR: 87 bpm Date of : 1940 Location: [facility] Height: 72 in. Age: 85 (more content not included)...[facility]07-01-2025 NoteName: Nadir Beth Date of : 1940 Today's Date: 05/15/25 Pt is unable to be seen for Physical Therapy at this time secondary to: per RN, pt currently off floor for TAVR. Will check back and complete therapy session as appropriate. Check No Charge Time attempted: 1515UnPaul[facility]07-01-2025 Note Occupational Therapy Name: Nadir Beth Date of : 1940 Today's Date: 05/15/25 Pt is unable to be seen for therapy at this time secondary to Pt is off unit for TAVR. Will check back and complete therapy session as appropriate. Check No Charge Time attempted: 1501UnPaulding [facility]07-01-2025 NoteNot sure baseline kidney function, creatinine today 1.61 Will decrease Lasix to 40 mg dailyUnPaulding County Hospital07-01-2025 NoteAcute on chronic heart failure with preserved EF BNP of 736 Echo 6/26 showed EF preserved. Moderate AAS and AR, [...] risk for CABG/AVR specially with history of CVAUniversgreen cross [facility]07-01-2025 NoteHighest troponin went up to 26 Likely combination of chronic kidney disease and CHFUnPaulding County Hospital07-01-2025 NoteContinue ZetiaUnPaulding County Hospital 05-15-2025 NoteContinue sliding scale insulin A1c came back of 9.3UnPaulding County Hospital07-01-2025 NoteContinue current clonidine 0.2/3 times daily, hydralazine 25/ 3 times daily and labetalolUnPaulding County Hospital07-01-2025 NoteCHADS2 DS vascular score is 7 currently on Xarelto Patient already on labetalolUnPaulding County Hospital07-01-2025 NoteOn aspirin and Zebeebe medical centerUnPaulding County Hospital07-01-2025 NoteHospital Medicine Daily Progress Note - 05/15/2025 1:08 PM; Room: [address] [place] [address] Admission: 05/10/2025 2:37 AM; Length of stay: 5 days THE HOSPITALIST TEAM PREFERS TO USE [employer] CHAT FOR NON-URGENT COMMUNICATION 7AM-7PM. IF I DO NOT RESPOND WITHIN 20 MINUTES OR URGENT MATTERS, PLEASE CALL THROUGH THE REWORK MACHINE OPERATOR. FROM 7PM-7AM, PLEASE PAGE [phone](COVR). Code Status: Full Code Barriers to Discharge: [...] daily and labetalol Acute congestive heart failure ([facility]) Acute on chronic heart failure with preserved [...] Other hyperlipidemia Continue Zetia Chronic atrial fibrillation ([facility]) CHADS2 DS vascular score is 7 currently [...] last 7 days Lab (more content not included)...[facility]07-01-2025 NoteCardiology Inpatient Progress Note Subjective Reason for consult: Acute on chronic HFpEF, hypertension urgency, TAVR. HPI: Nadir Beth is a 85 y.o. year old male with significant medical history of A-fib on Xarelto, hypertension, HFpEF, CKD, recent history of CVA 4 months back, renal artery stenosis transferred from [facility] for acute on chronic heart failure. Patient had history of stroke 4 months back and was in rehab patient has been having progressive lower extremity edema for few days. Patient was advised to increase his Lasix from 20 to 40 mg and blood work was done which showed BNP 6214 and was advised to go to the ED. In [facility] ED chest x-ray showed pulmonary vascular congestion [...] (163 lb) SpO2 96% (more content not included)...[facility]07-01-2025 NotePatient: Nadir Beth Procedure Information Date/Time: 05/15/25 1100 Procedure: TAVR Location: [facility] WATER POLLUTION SCIENTIST 3 / [facility] (Cath) Providers: Claribel [...] who consented to blood products. Additional Equipment RequestsTriHealth [facility]hes[facility]06-30-2025 Note Physical Therapy Physical Therapy Treatment [...] implement solutions Communication: (decreased communication with this FENDER MECHANIC d/t lethargy) General Assessment General Assessment Hearing: WASHOE - family reports he has hearing aids [...] to a chair (in (more content not included)...[facility]06-30-2025 NotePatient was admitted to the hospital [...] Dias RN, BSN Cardiology Outpatient Coordinator Cardiopulmonary RehabUnPaulding County Hospital06-30-2025 NoteContinue ZetiaUnPaulding County Hospital06-30-2025 NoteOn aspirin and Zetia [facility]06-30-2025 NoteAcute on chronic heart failure with [...] grafting/AVR specially with history of CVAUniversity of [facility] 05-14-2025 NoteHighest troponin went up to 26 Likely combination of chronic kidney disease and CHFUnPaulding County Hospital06-30-2025 NoteContinue current clonidine 0.2/3 times daily, hydralazine 25/ 3 times daily and labetalolUnPaulding County Hospital06-30-2025 NoteCHADS2 DS vascular score is 7 currently on Xarelto Patient already on labetalolUnPaulding County Hospital06-30-2025 Note Not sure baseline kidney function, creatinine today 1.74 Will decrease Lasix to 40 mg dailyUnPaulding County Hospital06-30-2025 NoteContinue sliding scale insulin A1c came back of 9.3UnPaulding County Hospital06-30-2025 NoteHospital Medicine Daily Progress Note - 05/14/2025 12:11 PM; Room: [address] [place] [address] Admission: 05/10/2025 2:37 AM; Length of stay: 4 days THE HOSPITALIST TEAM PREFERS TO USE [employer] FOR NON-URGENT COMMUNICATION 7AM-7PM. IF I DO NOT RESPOND WITHIN 20 MINUTES OR URGENT MATTERS, PLEASE CALL THROUGH THE REWORK MACHINE OPERATOR. FROM 7PM-7AM, PLEASE PAGE [phone](COVR). Code Status: Full Code Barriers to Discharge: [...] daily and labetalol Acute congestive heart failure ([facility]) Acute on chronic heart failure with preserved [...] mellitus, with long-term current use of insulin ([facility]) Continue sliding scale insulin A1c came back of 9.3 Other hyperlipidemia Continue Zetia Chronic atrial fibrillation ([facility]) CHADS2 DS vascular score is 7 currently [...] prior to this (more content not included)... [facility]06-30-2025 NoteOccupational Therapy Occupational Therapy Treatment Patient [...] friendly and cooperative Session Comments: Upon arrival copywriter noted pts male purwick had leaked. Brief [...] Assistance: Contact guard Static Sitting-Comment/Number of Minutes: Associate Professor Of English noted posterior lean while utilizing B UE's in bathing task. Tactile cues required to copywriter self Dynamic Sitting Balance Dynamic Sitting Balance [...] Eating meals?: None (Independent) Total Score OT [facility]: 21 Assessment/Plan OT Assessment OT Impairments: Decreased ADL status, Decreased endurance, Decreased functional mobility, Decreased IADLs OT Assessment/BRINE PURIFIER Summary: Pt is progressing toward goals but would benefit from continued therapy to increase balance, safety and endurance during functional mobility and ADL's to return to PLOF Prognosis: Fair Evaluation/Treatment Tolerance: Patient tolerated treatment well Medical Staff Made Aware: Yes Strengths: Support of extended (more content not included)...[facility]06-30-2025 NoteCardiology Inpatient Progress Note Subjective Reason for consult: Acute on chronic HFpEF, hypertension urgency, TAVR. HPI: Nadir Beth is a 85 y.o. year old male with significant medical history of A-fib on Xarelto, hypertension, HFpEF, CKD, recent history of CVA 4 months back, renal artery stenosis transferred from [facility] for acute on chronic heart failure. Patient had history of stroke 4 months back and was in rehab patient has been having progressive lower extremity edema for few days. Patient was advised to increase his Lasix from 20 to 40 mg and blood work was done which showed BNP 6214 and was advised to go to the ED. In [facility] [place] ED chest x-ray showed pulmonary vascular congestion [...] No wheezes, rales (more content not included)... [facility]06-30-2025 Notedischarge planning: return to [facility] 0917 updates sent to [facility], via [employer] system [address]; notice sent to SNF, via [employer] system, with request to confirm bed availability today 1028 SNF has bed today but Discharge Order has been removed for Patient to have TAVR tomorrow; SNF notified via [employer] system discharge barriers: [] no insurance precert needed for SNF, but confirm bed at discharge [] [facility]06-30-2025 NoteSTS Scoring for Surgical AVR, plan [...] 31.3%, WBC Count: 10.18 10???/?L, Platelet Count: 201648 cells/?L PreOp Medications: Insulin diabetes control Risk Factors / Comorbidities: Insulin-dependent Diabetes Mellitus, Hypertension Vascular RF: Cerebrovascular Disease: CVA <= 30 days Cardiac Status: Chronic heart failure, Ejection Fraction = 50% Valve Disease: Aortic Stenosis, Mild AR, Mild MR Arrhythmia: Recent A-fib, ParoxysmalUnPaulding County Hospital 05-13-2025 NoteHighest troponin went up to 26 Likely combination of chronic kidney disease and CHFUnPaulding County Hospital06-29-2025 NoteNot sure baseline kidney function, creatinine today 1.65 [facility]06-29-2025 NoteCHADS2 DS vascular score is 7 currently on Xarelto Patient already on labetalolUnPaulding County Hospital06-29-2025 Note Continue ZetiaUnPaulding County Hospital06-29-2025 NoteAcute on chronic heart failure [...] grafting/AVR specially with history of CVAUniversity of [facility] 05-13-2025 NoteContinue sliding scale insulin A1c came back of 9.3UnPaulding [facility] Hospital06-29-2025 NoteContinue current clonidine 0.2 3 times daily, hydralazine 25 3 times daily and labetalolUnPaulding County Hospital06-29-2025 NoteOn aspirin and Zetia [facility]06-29-2025 NoteHospital Medicine Daily Progress Note - 05/13/2025 10:51 AM; Room: [address] [place] [address] Admission: 05/10/2025 2:37 AM; Length of stay: 3 days THE HOSPITALIST TEAM PREFERS TO USE [employer] FOR NON-URGENT COMMUNICATION 7AM-7PM. IF I DO NOT RESPOND WITHIN 20 MINUTES OR URGENT MATTERS, PLEASE CALL THROUGH THE REWORK MACHINE OPERATOR. FROM 7PM-7AM, PLEASE PAGE [phone](COVR). Code Status: Full Code Barriers to Discharge: [...] mellitus, with long-term current use of insulin ([facility]) Continue sliding scale insulin A1c came back of 9.3 Other hyperlipidemia Continue Zetia Chronic atrial fibrillation ([facility]) CHADS2 DS vascular score is 7 currently [...] 05/11/2025 LDL 118 05/11/20 (more content not included)...[facility]06-29-2025 NoteCardiology Inpatient Progress Note Subjective Reason for consult: Acute on chronic HFpEF, hypertension urgency HPI: Nadir Beth is a 85 y.o. year old male with significant medical history of A-fib on Xarelto, hypertension, HFpEF, CKD, recent history of CVA 4 months back, renal artery stenosis transferred from [facility] for acute on chronic heart failure. Patient had history of stroke 4 months back and was in rehab patient has been having progressive lower extremity edema for few days. Patient was advised to increase his Lasix from 20 to 40 mg and blood work was done which showed BNP 6214 and was advised to go to the ED. In [facility] ED chest x-ray showed pulmonary vascular congestion [...] pulsations or distension. Bowel (more content not included)...[facility]06-28-2025 NoteCHADS2 DS vascular score is 7 currently on Xarelto Patient already on labetalolUnPaulding County Hospital06-28-2025 Note Not sure baseline kidney function, creatinine today 1.63UnPaul[facility]06-28-2025 NoteContinue sliding scale insulin A1c came back of 9.3UnPaulding County Hospital06-28-2025 NoteHighest troponin went up to 26 Likely combination of chronic kidney disease and CHFUnPaulding County Hospital06-28-2025 NoteAcute on chronic heart failure [...] grafting/AVR specially with history of CVAUniversity of [facility] 05-12-2025 NoteContinue current clonidine 0.2 3 times daily, hydralazine 25 3 times daily and labetalolUnPaulding County Hospital06-28-2025 NoteContinue Zetia [facility]06-28-2025 NoteOn aspirin and ZetiaUnPaulding County Hospital06-28-2025 NoteHospital Medicine Daily Progress Note - 05/12/2025 12:25 PM; Room: [address] [place] [address] Admission: 05/10/2025 2:37 AM; Length of stay: 2 days THE HOSPITALIST TEAM PREFERS TO USE [employer] FOR NON-URGENT COMMUNICATION 7AM-7PM. IF I DO NOT RESPOND WITHIN 20 MINUTES OR URGENT MATTERS, PLEASE CALL THROUGH THE REWORK MACHINE OPERATOR. FROM 7PM-7AM, PLEASE PAGE [phone](COVR). Code Status: Full Code Barriers to Discharge: [...] daily and labetalol Acute congestive heart failure ([facility]) Acute on chronic heart failure with preserved [...] mellitus, with long-term current use of insulin ([facility]) Continue sliding scale insulin A1c came back of 9.3 Other hyperlipidemia Continue Zetia Chronic atrial fibrillation ([facility]) CHADS2 DS vascular score is 7 currently [...] CHLORIDE mmol/L 99 101 101 CO2 mmol/L 26 BUN mg/dL 36* 31* 28* CREATININE [...] LDL 118 05/11/2025 No results found for: [id number] , IRON , TI (more content not included)... [facility]06-28-2025 Note Attestation signed by Nicole Reynolds [...] TAVR. Nicole Reynolds MD, ScM, MSc Cardiac Flavorer Email: [email or web address] Nicole Reynolds MD, ScM, MSc Cardiac Flavorer Email: [email or web address] Cardiology Progress Note Subjective Patient was examined [...] -- -- 68 14 96 % -- 05/11/255 118/51 -- -- 74 21 96 % [...] Bubble Study Result Date: 05/10/2025 1 1 [facility] Heart Station [address] [place] [address] [phone] (fax) Echocardiogram-[facility] Name: NADIR BETH Study Date: 05/10/2025 09:19 AM B/P: 178 mmHg/92 mmHg HR: 104 bpm Date of : 1940 Location: [facility] Height: 72 in. Age: 85 year(s) Patient [...] 2D 24.6 ml/m2 LVO (more content not included)...[facility]06-27-2025 Note. No associated orders from this encounter found during lookback period of 72 hours.[facility]06-27-2025 NoteCOrders from past 72 hours: Case Request Neurosurgical Nurse: Coronary angiography, Right heart cath; Standing Cardiac catheterization; StandingUnPaulding County Hospital06-27-2025 NoteInsulin blood sugar check diet A1c came back of 9.3UnPaulding [facility] Hospital06-27-2025 NoteHighest troponin went up to 26 Likely combination of chronic kidney disease and CHFUnPaulding County Hospital06-27-2025 NoteNot sure baseline kidney function, creatinine today 1.56, will monitorUnPaulding County Hospital06-27-2025 NoteCHADS2 DS vascular score is 7 currently on Eliquis Patient on heparin drip and plan to switch on Eliquis after procedure Patient already on labetalolUnPaulding County Hospital06-27-2025 Note Continue ZetiaUnPaulding County Hospital06-27-2025 NoteAcute on chronic heart failure with preserved EF BNP of 736 Echo 05/10 showed EF preserved. Moderate AAS and AR, mild MR and TR Patient scheduled for cardiac cath today Lasix 40 IV every 8 hours Continue goal-directed medical therapy Farxiga, labetalol, Aldactone Uptitrate meds after Cardiac cathUnPaulding County Hospital06-27-2025 NoteContinue current clonidine 0.2 3 times daily, hydralazine 25 3 times daily and labetalolUnPaulding County Hospital06-27-2025 NoteOn aspirin statin with deconditioning and gait abnormality with fall risk PT OT to see [facility] hospitalUnPaul[facility]06-27-2025 NoteHospital Medicine Daily Progress Note - 05/11/2025 4:14 PM; Room: [address] [place] [address] Admission: 05/10/2025 2:37 AM; Length of stay: 1 days THE HOSPITALIST TEAM PREFERS TO USE [employer] FOR NON-URGENT COMMUNICATION 7AM-7PM. IF I DO NOT RESPOND WITHIN 20 MINUTES OR URGENT MATTERS, PLEASE CALL THROUGH THE REWORK MACHINE OPERATOR. FROM 7PM-7AM, PLEASE PAGE [phone](COVR). Code Status: Full Code Barriers to Discharge: [...] daily and labetalol Acute congestive heart failure ([facility]) Acute on chronic heart failure with preserved [...] mellitus, with long-term current use of insulin ([facility]) Insulin blood sugar check diet A1c came back of 9.3 Other hyperlipidemia Continue Zetia Chronic atrial fibrillation ([facility]) CHADS2 DS vascular score is 7 currently [...] LDL 118 05/11/2025 No results found for: [id number] , IRON , TIBC , C3 , C4 , SHERRY , CANCA , ASO , PSA , CEA , CA125 , CA199 , AFP , CA153 Imaging Complete Echo (TTE) w/wo Imaging Agent, Strain, 3D, Bubble Study 1 1 [facility] Heart Station [address] [place] [address] [phone] (fax) Echocardiogram-[facility] SERVICES Name: (more content not included)...[facility]06-27-2025 Notedischarge planning: to return to [facility] updates sent to [facility], via [facility]Port system discharge barriers: [] no insurance precert needed for any placement from this admission, but confirm bed still available before discharge [] [facility]06-27-2025 NoteCTA CHEST W IV CONTRAST 05/11/2025 [...] 3 cusped view, anterior view, and no WIRE MESH KNITTER-CAU view are saved in 3-D volume rendered [...] of 26 mm Electronically signed: Yenni Stafford MD.[facility] Comment on above:Order Comment: Patient had pre procedure medications already for [id number] Note Attestation signed by Azeem Green MD at 05/11/2025 4:45 PM I personally saw and examined the patient on rounds and agree with the assessment and plan of the medical staff services coordinator Cardiology Progress Note Subjective Patient was examined [...] Bubble Study Result Date: 05/10/2025 1 1 [facility] Heart Station [address] [place] [address] [phone] (fax) Echocardiogram-[facility] Name: NADIR BETH Study Date: 05/10/2025 09:19 AM B/P: 178 mmHg/92 mmHg HR: 104 bpm Date of : 1940 Location: [facility] Height: 72 in. Age: 85 year(s) Patient [...] The left atr (more content not included)... [facility]06-27-2025 NotePhysical Therapy Physical Therapy Treatment Patient [...] time General Assessment General Assessment Hearing: Mild WASHOE Hand Dominance: Right Static Sitting Balance Static [...] Clicks T-Score: 18 Assessment/Plan PT Assessment PT Assessment/FENDER MECHANIC Summary: Patient is a 85 y/o male [...] Date LTG - Janay (more content not included)...[facility] 05-11-2025 NotePatient: Nadir Beth Procedure Information Date/Time: 05/11/25 1130 Procedures: Coronary angiography Right heart cath Location: [facility] WATER POLLUTION SCIENTIST 3 / [facility] (Cath) Providers: Aissatou [...] who consented to blood products. [facility] Note Attestation signed by Landen Rice PT at 05/10/2025 3:50 PM This copywriter (PT) provided one-on-one supervision, direction of patient [...] an 85 y/o male admitted 05/10/25 from [facility] where he presented following outpatient labs [...] Intact General Assessment General Assessment Hearing: mild WASHOE Hand Dominance: Right Home Living Home Living [...] Level of Function Prior Function Level of [place]: Independent with ADLs and functional transfers, Independent [...] assist in initiation/anterior weight shift. Patient shannan good LE strength req (more content not included)... [facility]06-26-2025 Note05/10/25 1520 Admission Assessment Questions Verify [...] back? Yes Pharmacy Bedside Delivery Status Interested ([facility] in [facility]) Does the patient have a manager of case management assigned to them through their insurance? No Living Arrangement (Current/Prior to Hospitalization) Private residence;Inpatient rehab facility (2 story house w/ 5 steps. Lives with his and she is able to help after discharge as needed. Came to us from [facility] x 3 weeks / Bedhold.) Does the patient have history of HHC or SNF? Yes (Hx HHC et Current SNF.) Assistive Device Walker;Wheelchair (@ [employer]. [employer]. Walker at home.) Patient's goal for discharge [facility] Was patient reminded that goal for [...] the patient's family members at his bedside. [facility]06-26-2025 NoteOccupational Therapy Occupational Therapy Evaluation Patient [...] Intact General Assessment General Assessment Hearing: (mild ione) Hand Dominance: Right Home Living Home Living Type of Home: House Lives With: Spouse Home Adaptive Equipment: Walker rolling, Cane (sc, gb, hhs) Home Layout: One level Home Access: Stairs to enter with rails (5) Bathroom Shower/Tub: Tub/shower unit Prior Level of Function Prior Function Level of [place]: Independent with ADLs and functional transfers, Independent [...] Eating meals?: None (Independent) Total Score OT [facility]: 21 Assessment/Plan OT Assessment OT Impairments: Decreased [...] current use of insu (more content not included)...[facility]06-26-2025 NoteDaily Case Management Update Barriers to Discharge et per Progress Note: Transfer from [facility] for elevated BNP et BLE Edema. [...] Reason for OT? Answer: gait abnormality 05/10/25 [facility] NotePer review of chart patient has diastolic heart failure had history of pericardial effusion as well we will optimize guideline directed medical therapy with limitation due to renal insufficiency obtain echocardiogram cycle troponins cardiology to see [facility]06-26-2025 NoteInsulin blood sugar check [facility]06-26-2025 Note Antilipemic agents [facility]06-26-2025 NoteOn aspirin statin with deconditioning and gait abnormality with fall risk PT OT to see [facility]06-26-2025 NoteAdjust antihypertensives low-salt diet with renal insufficiency unable to start JAY or [facility]UnPaul[facility]06-26-2025 NoteCHADS2 DS vascular score is 7 currently on Eliquis Chronic kidney disease stage IIIb avoid nephrotoxic meds hypovolemia nephrology consultTriHealth [facility]06-26-2025 NoteHospital Medicine History and Physical 05/10/2025 4:12 AM THE HOSPITALIST TEAM PREFERS TO USE [facility] FOR NON-URGENT COMMUNICATION 7AM-7PM. IF I DO NOT RESPOND WITHIN 20 MINUTES OR URGENT MATTERS, PLEASE CALL THROUGH THE REWORK MACHINE OPERATOR. FROM 7PM-7AM, PLEASE PAGE [phone](COVR). Chief Complaint No chief complaint on file. History of Present Illness Nadir Turner is an 85 y.o. male admitted as a direct transfer from [facility] where he presented following outpatient labs [...] pulses. Heart sounds: Normal heart sounds. Comments: [id number] s4 systolic murmur Pulmonary: Effort: Pulmonary effort [...] JAY or ARB Acute congestive heart failure ([facility]) Per review of chart patient has diastolic [...] mellitus, with long-term current use of insulin ([facility]) Insulin blood sugar check diet Other hyperlipidemia Antilipemic agents diet Chronic atrial fibrillation ([facility]) CHADS2 DS vascular score is 7 currently [...] this hospital stay by a member of [facility]. Past Medical History Medical History[1] Past Surgical History Surgical History[2] Social History Social History Socioeconomic History Marital status: Not on file Spouse name: Not on file Number of children: Not on file Years of education: Not on file Highest education level: Not on file Occupational History Not on file Tobacco Use Smoking status: Former Types: Cigarettes S (more content not included)...[facility]06-24-2025 History of Present illness Narrative* Mony [...] titration study Managed by Dr John in [place] * Mony Herron NP - 05/08/2025 2:00 [...] complaint on file. Appointment Note -- FU ([facility]) Patient is here today for post stroke [...] titration study Managed by Dr John in [place] Carotid stenosis, bilateral Plan redo US carotids 2026. Polyneuropathy (Continue current regimen.) No orders of the defined types were placed in this encounter. Follow-Up - No follow-ups on file. History of Present Illness, Associated Treatments and Results - Dx (JOSIAH) Tx OFF BiPAP @ 31/10 AEs Hx JOSIAH - (Per Dr. John, [facility]). Failed Semeiology Circadian Noct oxim PSG _ ([place]) - _ PAPT ([place]) - AHI=8.1 @ 31/10 (max pressure) MSLT [...] UBOs Tx ASA AEs Hx Recent adm [place] for confusion. Now baseline. Images rev'd. No clear cognitive decline. Denies forgetting names, leaving tools/stove on, getting lost, etc. Onset Semeiology Imaging MR brain (02/2025, [place]) - rev'd with pt - no report sent - on my review, atrophy mod-sev, 8-10 UBOs, most tiny, 2 mod incl R fro & R splenium CC MRA head (02/2025, [place]) - no stenoses MRA neck (02/2025, [place]) - no stenoses, dom R vert US carotids (02/2025, [place]) - < 50% B by velocity, but mod plaque poss causing stenosis Testing Surgery Failed Dx L BASAL GANGLIA STROKE/WMD/ATROPHY Tx (Continue ASA, Xeralto ?, statin.) AEs Hx Onset AMS and garbled speech Semeiology To [facility]. CT and MRI showed stroke ? Subacute. Eliquis changed to Xeralto. DC to [place] [facility] for Skilled therapy. Imaging CT Head (04/2025 [facility]) 8mm hypodensity in left caudate nucleus MRI Brain (04/2025 [facility]) Subacute left basal ganglia ischemia, mild WMD, moderate atrophy CTA H/N (04/2025 [facility]) 50% ICA stenosis B. Moderate M1 right MCA stenosis Testing Echo (04/2025 [facility]) EF 65-70%, Aortic sclerosis, severe PHT RSVP [...] ? [address] ? [place], [place] [address] ? ? fax Neurology ? Clinical Neurophysiology ? Epilepsy ? Sleep Disorders ? Clinical Informatics documented in this encounterThe Rehabilitation [id number] NoteUT Cardiology - [facility] Subjective Nadir Beth is a 85 y.o. year old male patient being seen for follow up CVA. [facility] Patient complains of HERNANDEZ and leg swelling, high blood sugars. Patient is at the [facility] for rehab. Patient Active Problem List Diagnosis [...] diuretic therapy. He was admitted to the [facility] in August 2022 due to hyponatremia, hyperkalemia and acute kidney injury, leukocytosis secondary to COVID-19 causing dehydration. I saw him on 05/24/2023 and the office and he had significant evidence of volume overload by exam and echocardiogram. I intensified his diuretic regimen. He ended up getting admitted to the [facility] with acute heart failure exacerbation and [...] On 02/14/2025 he was admitted to the [facility] with altered mental status. brain MRI showed multiple infarcts. He was seen by cardiology consult and Eliquis was changed to Xarelto. He then underwent a transesophageal echocardiogram that showed no evidence of intra cardiac thrombi. The aortic valve stenosis appeared to be severe. He was seen in the emergency room at the [facility] on 03/08/2025 with chest pain episode. He ruled out for myocardial infarction and was discharged. I last saw him on 03/12/2025 and decided to proceed with cardiac catheterization as part of his workup for aortic valve replacement. The procedure is scheduled for May 10, 2025. However in the interim he was admitted on 04/14/2025 to [facility] with apparent acute cerebrovascular accident. MRI showed possible small acute/subacute infarct. The clinical presentation was that of inability to speak. Relatively quickly. He was discharged back to rehab at the [place] (more content not included)...[facility]06-16-2025 Note Discharge Summary Admission and Discharge Information Admit Date/Time:04/14/2025 19:37 Admitting Physician - Layne VERDUGO DO Consulting Physician - [facility] Wound, XXXX Admitting Diagnoses: Anxiety, 04/18/2025 Discharge [...] at discharge. Patient was accepted to [facility] which patient will transfer there [...] Discharge Disposition Discharge To, Anticipated II - Long Term Unit Discharged to - Other: [facility] Discharge Diet Discharge Diet(s): Calorie Controlled- 1800 [...] BID Flomax, 0.4 m (more content not included)...[facility] IncComment on above:Result Comment: Electronically Signed By: Anai URIARTE\.mary\Date and Time Signed: 04/28/25 11:42 EDT\.br\Electronically Co- [...] deep vein thrombosis (DVT) prophylaxis (Z79.899: Other salvage determiner (current) drug therapy) Resume Xarelto 11. History [...] conjunctiva, sclera clear E (more content not included)...[facility], IncComment on above: Result Comment: Electronically Signed By: Anai URIARTE\.br\Date and Time Signed: 04/15/25 12:52 EDT\.br\Electronically Co-Signed By: Grey Carl III, DO.br\Date and Time Co-Signed: 04/23/25 07:20 [id number] Note Microbiology PROCEDURE: Blood Culture Charcoal [R1] SOURCE: Blood BODY SITE: Hand L COLLECTED DATE/TIME: 04/14/2025 18:05 EDT RECEIVED DATE/TIME: 04/14/2025 18:40 EDT START DATE/TIME: 04/14/2025 18:40 EDT FREE TEXT SOURCE: Indu Slaughter, Rivas Griggs M.D., [place] FINAL REPORTS Final Report [] Verified Date/Time: 04/21/2025 21:00 EDT No growth at 7 days. Performing Locations R1: This test was performed at: [facility], [address] [place] [address], [id number] [place] [address], [address] [place], [place] [address]Comment on above:Performed By: #### [id number] #### [facility] Laboratory [address] [place] [address] [id number] NoteMicrobiology PROCEDURE: Blood Culture Charcoal [R1] SOURCE: Blood BODY SITE: Hand R COLLECTED DATE/TIME: 04/14/2025 18:04 EDT RECEIVED DATE/TIME: 04/14/2025 18:41 EDT START DATE/TIME: 04/14/2025 18:41 EDT FREE TEXT SOURCE: Indu Slaguhter, Rivas Griggs M.D., [place] FINAL REPORTS Final Report [] Verified Date/Time: 04/21/2025 21:00 EDT No growth at 7 days. Performing Locations R1: This test was performed at: [facility], [address] [place] [address], [id number] [place] [address], [address] [place], [place] [address]Comment on above:Performed By: #### [id number] #### [facility] [address] [place] [address] [id number] NoteMicrobiology PROCEDURE: Blood Culture Charcoal [R1] SOURCE: [...] Locations R1: This test was performed at: [facility], [address] [place] [address], [address] [place] [address], [id number] Walker StreetComment on above:Performed By: #### [id number] #### [facility] [address] [place] [address] [phone] NoteMicrobiology PROCEDURE: Blood Culture Charcoal [R1] SOURCE: Blood BODY SITE: Hand R COLLECTED DATE/TIME: 04/14/2025 18:04 EDT RECEIVED DATE/TIME: 04/14/2025 18:41 EDT START DATE/TIME: 04/14/2025 18:41 EDT FREE TEXT SOURCE: Peripheral vein site #1 Indu Slaughter, Rivas Griggs M.D., Rivas H FINAL REPORTS Final Report [] Verified Date/Time: 04/21/2025 21:00 EDT No growth at 7 days. Performing Locations R1: This test was performed at: [facility], [address] [place] [address], [address] [place] [address], [address] [place], [place] [address]Comment on above:Performed By: #### [id number] #### [facility] [address] [place] [address] [id number] NoteGetWell Understands Education Yes GetWell Education Video Statins: Should You Take Them to Lower Your Risk? GetWell Learning Participants [facility]06-04-2025 NoteGetWell Education Video After a Stroke: Your Self-Care Plan GetWell Learning Participants Patient GetWell Understands Education Yes[facility]06-04-2025 NoteGetWell Understands Education Yes GetWell Education Video After a Stroke: Taking an Antiplatelet GetWell Learning Participants [facility]06-04-2025 NoteGetWell Education Video After a Stroke: Taking an Antiplatelet GetWell Learning Participants Patient GetWell Understands Education Yes[facility]06-04-2025 NoteGetWell Understands Education Yes GetWell Education Video Your Hospital Stay: Moving to Another Care Facility GetWell Learning Participants [facility]06-04-2025 NoteGetWell Understands Education GetWell Education Video Stroke: Fast facts GetWell Learning [facility]06-04-2025 NoteGetWell Understands Education GetWell Education Video Stroke: Fast facts GetWell Learning [facility]06-04-2025 NoteGetWell Understands Education Yes GetWell Education Video After a Hospital Stay: Managing Appointments GetWell Learning Participants [facility]06-04-2025 NoteGetWell Understands Education Yes GetWell Education Video Preventing Falls in the Hospital [facility] Learning Participants [facility]06-04-2025 NoteGetWell Understands Education Yes GetWell Education Video Avoiding Infections in the Hospital [facility] Learning Participants [facility]06-04-2025 NoteGetWell Learning Participants Patient GetWell Understands Education Yes GetWell Education Video What Is a Stroke?[facility]06-03-2025 Evaluation + Plan note Extracted from:Title:APSO NoteAuthor:PEPE [...] today patient is pending cardiac cath at [facility] towards the end of this month for [...] deep vein thrombosis (DVT) prophylaxis (Z79.899: Other care home (current) drug therapy) Resume Xarelto 11. History of DVT in adulthood (Z86.718: Personal history of other venous thrombosis and embolism) Xarelto Extracted from:Title:APSO Note-neurologyAuthor:Joni OTERO, PatiDate:04/17/25 ASSESSMENT: Acute to subacute embolic ischemic stroke. [...] deep vein thrombosis (DVT) prophylaxis (Z79.899: Other care home (current) drug therapy) 11. History of DVT in adulthood (Z86.718: Personal history of other venous thrombosis and embolism) Chronic constipation with overflow (K59.09: Other constipation) Extracted from:Title:Progress/SOAP NoteAuthor:Hanna GUSTAFSON, [facility] Hospitalte:04/16/25 1. CVA (cerebrovascular acci dent) (I63.9: [...] deep vein thrombosis (DVT) prophylaxis (Z79.899: Other salvage determiner (current) drug therapy) 11. History of DVT in adulthood (Z86.718: Personal history of other venous thrombosis and embolism) Chronic constipation with overflow (K59.09: Other constipation) Extracted from:Title:APSO NoteAuthor:PEPE CADE, RoroeDate:04/16/25 PLAN: 1. CVA (cerebrovascular accident) (I63.9: Cerebral [...] deep vein thrombosis (DVT) prophylaxis (Z79.899: Other salvage determiner (current) drug therapy) Resume Xarelto 11. History of DVT in adulthood (Z86.718: Personal history of other venous thrombosis and embolism) Xarelto Extracted from:Title:APSO Note- NeurologyAuthor:Preethi Lancaster RN ADate:04/16/25 ASSESSMENT: His presentation is very concerning for [...] deep vein thrombosis (DVT) prophylaxis (Z79.899: Other care home (current) drug therapy) 11. History of DVT in adulthood (Z86.718: Personal history of other venous thrombosis and embolism) Chronic constipation with overflow (K59.09: Other constipation) Extracted from:Title:Consult NoteAuthor:Hanna GUSTAFSON, [facility] CenterShirinte:04/15/25 1. CVA (cerebrovascular acci dent) (I63.9: Cerebral [...] deep vein thrombosis (DVT) prophylaxis (Z79.899: Other care home (current) drug therapy) 10. History of DVT in adulthood (Z86.718: Personal history of other venous thrombosis and embolism) Elevated troponin likely due to mismatch demand supply. Continue current management. Continue to trend. Obtain 2D echo. Treat acute issues. Aggressive risk factor control. Thank you for the consult discussed with the patient family at bedside. Extracted from:Title:Consult Note-NeurologyAuthor:Stephanie Mello RN, MDate:04/15/25 ASSESSMENT: His presentation is very concerning [...] deep vein thrombosis (DVT) prophylaxis (Z79.899: Other salvage determiner (current) drug therapy) Other obstructive and reflux uropathy (N13.8: Other obstructive and reflux uropathy) Pleural effusion (J90: Pleural effusion, not elsewhere classified) Extracted from:Title:Admission H & PAuthor:KARTIK Layne ORTIZ RDate:04/14/25 1. CVA (cerebrovascular acci dent) (I63.9: Cerebral infarction, unspecified) Interventional neurology was consulted from the emergency department at [facility]. They recommendedpatient started on a low intensity [...] deep vein thrombosis (DVT) prophylaxis (Z79.899: Other care home (current) drug therapy) SCD, heparin Orders: albuterol, [...] erythema or exudate. - POA. will consult [facility]. bacitracinbid. Extracted from:Title:ED NoteAuthor:Rivas Griggs M.D. HDate:04/14/25 [...] Date:06/11/2025 11:40:00 AM Scheduled Provider:LU OLMEDO PA-C [facility] Office Visit [facility] 06-03-2025 NoteProgress Note-Physician Assessment/Plan PLAN: 1. CVA [...] today patient is pending cardiac cath at [facility] towards the end of this month for [...] deep vein thrombosis (DVT) prophylaxis (Z79.899: Other salvage determiner (current) drug therapy) Resume Xarelto 11. History [...] Lymph Auto: 7.1 % Low (04/17/25 06:01:00) Chester Auto: 13.7 % (04/17/25 06:01:00) Eos Auto: 0.6 % (04/17/25 06:01:00) Basophil Auto: 0.6 % (04/17/25 06:01:00) Neutro Absolute: 7.7 E9/L High (04/17/25 06:01:00) Lymph Absolute: 0.7 E9/L Low (04/17/25 06:01:00) [place] Absolute: 1.4 E9/L High (06 (more content not included)...[facility], IncComment on above:Result Comment: Electronically Signed By: Anai URIARTE\.mary\Date and Time Signed: 04/17/25 08:59 EDT\.br\Electronically Co-Signed By: Marc Fajardo DO\.br\Date and Time Co- Signed: 04/17/25 13:29 [id number] NoteProgress Note-Physician Assessment/Plan ASSESSMENT: Acute to subacute [...] deep vein thrombosis (DVT) prophylaxis (Z79.899: Other care home (current) drug therapy) 11. History of [...] both correctly = 0 Open and close eyes/knife setter assembler release hand: Obeys both correctly = 0 [...] MPV: 9.1 fL (04/17/ (more content not included)...[facility] Comment on above:Result Comment: Electronically Signed By: Pati Quinones RN\.br\Date and Time Signed: 04/17/25 09:21 EDT\.br\Electronically Co- Signed By: Ruy Molina DO\.br\Date and Time Co-Signed: 04/17/25 10:46 EDT 04-16-2025 NoteProgress Note-Physician Subjective Patient off floor for MRI. I did discuss the echo findings with the patient family. Patient family was advised to follow-up with his outpatient treating credit and collection manager. Patient credit and collection manager showed be able to get access [...] Lymph Auto: 4.6 % Low (04/16/25 06:05:00) Chester Auto: 10.8 % (04/16/25 06:05:00) Eos Auto: 0.2 % (04/16/25 06:05:00) Basophil Auto: 0.1 % (04/16/25 06:05:00) Neutro Absolute: 12.3 E9/L High (04/16/25 06:05:00) Lymph Absolute: 0.7 E9/L Low (04/16/25 06:05:00) Chester Absolute: 1.6 E9/L High (04/16/25 06:05:00) Eos [...] mg/dL High (04/16/25 11:23:00) POC Device SN: [id number] (04/16/25 11:23:00) POC User ID: [id number] (04/16/25 11:23:00) POC Username: WICHO NORRIS (04/16/25 [...] deep vein thrombosis (DVT) prophylaxis (Z79.899: Other salvage determiner (current) drug therapy) 11. History of DVT [...] loratadine 10 mg Tab, (more content not included)...[facility] Comment on above:Result Comment: Electronically Signed By: Rebeca Ferreira MD\.br\Date and Time Signed: 04/16/25 12:15 [id number] NoteProgress Note-Physician Assessment/Plan PLAN: 1. CVA (cerebrovascular [...] deep vein thrombosis (DVT) prophylaxis (Z79.899: Other care home (current) drug therapy) Resume Xarelto 11. [...] Lymph Auto: 4.6 % Low (04/16/25 06:05:00) Chester Auto: 10.8 % (04/16/25 06:05:00) Eos Auto: 0.2 % (04/16/25 06:05:00) Basophil Auto: 0.1 % (04/16/25 06:05:00) Neutro Absolute: 12.3 E9/L High (04/16/25 06:05:00) Lymph Absolute: 0.7 E9/L Low (04/16/25 06:05:00) Chester Absolute: 1.6 E9/L High (04/16/25 06:05:00) Eos Absolute: 0 E9/L (04/16/25 06:05:00) Basophil Absolute: 0 E9/L (04/16/25 06:05:00) Glucose Lvl: 212 mg/dL High (04/16/25 06:05:00) BUN: 33 mg/dL High (04/16/25 06:05:00) Creatinine: 1.7 mg/dL High (04/16/25 06:05:00) eGFR: 39 mL/min/1.73 (more content not included)...[facility] Comment on above:Result Comment: Electronically Signed By: Anai URIARTE\.mary\Date and Time Signed: 04/16/25 07:41 EDT\.br\Electronically Co- [...] be managed by a specialist called an managed care liaison. Type 2 diabetes may be treated by [...] meet with a certified diabetes care and ebd special education teacher? What diabetes medicines do [...] is my next appointment? General instructions Take wsuj-jci-udwpebn and prescription medicines only as told by your health care provider. Keep all follow-up visits. This is important. Where to find more information For help and guidance and for more information about diabetes, please visit: [place] [employer] Association (ADA): www.diabetes.org [place] [employer] Diabetes Care and Education Specialists [...] provider. Document Revised: 01/26/2022 Document Reviewed: 01/26/2022 [employer] Patient Education 2023 [email or web address]. 04/16/2025 09:29:43 Atrial Fibrillation Atrial Fibrillation Atrial [...] signals of the heart. An ambulatory cardiac nurse to record your heart's activity for a [...] provider. Document Revised: 07/21/2023 Document Reviewed: 07/21/2023 [employer] Patient Education 2023 [employer] 04/16/2025 09:29:43 Core Measures: Stroke (Cerebrovascular Accident) [facility], (Custom) Stroke (Cerebrovascular Accident) A stroke is [...] factors for stroke, work with your health behavioral health care coordinator to control them. High Blood [...] Please call [facility] Smoking Cessation Program at [phone] ([facility]), or [phone], ext. [phone] Diabetes: Work with your healthcare professional to [...] cholesterol diet, you can call our [employer] punch press feeder at [phone] Ext. [phone]. The goal for total cholesterol is less [...] your risk of stroke with your health behavioral health care coordinator. TREATMENT TIME IS OF THE [...] Measures will be takento prevent short and salvage determiner complications, including aspiration pneumonia, blood clots in [...] for more information on strokes, log onto [email or web address] or [email or web address] or call the [place] [employer] Association at . Revised 11/2018 Follow Up Care 04/14/2025 16:54:01 With:Neurology Address: [phone] When:2 to 4 weeks Comments:Call for followup appointment [facility] 06-02-2025 NoteEchocardiology Procedure Exam Date/Time Accession # Ordering Echo Transthoracic 04/16/2025 10:06 EDT [id number] Felton URIARTE CPT code [id number] Reason for Exam (Echo Transthoracic Complete) CVA Report [facility] [address] [place] [address] Adult Echocardiogram Report Name: NADIR BETH Study Date: 04/16/2025 09:15 AM BP: 172/80 mmHg Patient Location: [facility] [place] [address] Bed(s) [facility] HR: 94 : 1940 Gender: Male Height: [...] Signed by: Rebeca Ferreira MD Transcribed by: NC Technologist: [facility]06-02-2025 Note Progress Note-Physician Assessment/Plan ASSESSMENT: His presentation [...] deep vein thrombosis (DVT) prophylaxis (Z79.899: Other salvage determiner (current) drug therapy) 11. History of DVT [...] Both incorrect = 1 Open and close eyes/knife setter assembler release hand: Obeys both correctly = 0 [...] Lymph Auto: 4.6 % Low (04/16/25 06:05:00) Chester Auto: 10.8 % (04/16/25 06:05:00) Eos Auto: 0.2 % (04/16/25 06:05:00) Basophil Auto: 0.1 % (04/16/25 06:05:00) Neutro Absolute: 12.3 E9/L High (04/16/25 06:05:00) Lymph Absolut (more content not included)...[facility] IncComment on above:Result Comment: Electronically Signed By: Preethi Lancaster RN\.br\Date and Time Signed: 04/16/25 07:32 EDT\.br\Electronically Co-Signed By: Ruy Molina DO\.br\Date and Time Co-Signed: 04/16/25 09:47 [id number] Note Interdisciplinary Note - PT PT Evaluation done this date. Pt. with on AM-PAC this date. Min Ax1 and FWW with all activityfor safety. Recommend SNF at this time, will continue to follow.[facility]06-01-2025 NoteInterdisciplinary Note - PT PT evaluation order received. Pt has an MRI still pending and as per nursing should be on hold for today. Will attempt tomorrow.[facility] 04-15-2025 NoteConsultation Note Chief Complaint AMS History [...] Patient's daughter Valerie is healthcare power of associate attorney. She was on the phone. She states that for the time being she would like patient to be a full code. She will discuss this with her family and notify us if she makes any changes. Family does note that patient was admitted for a stroke at [facility] about 6 weeks ago. They state [...] is obtained. He does follow-up with outpatient credit and collection manager. Review of Systems As per HPI [...] deep vein thrombosis (DVT) prophylaxis (Z79.899: Other care home (current) drug therapy) 10. History of DVT [...] hernia repair, Tonsillectomy. Medications (more content not included)...[facility] IncComment on above:Result Comment: Electronically Signed By: Hanna GUSTAFSON, Rebeca\.mary\Date and Time Signed: 04/15/25 09:39 [id number] NoteConsultation Note Chief Complaint AMS Reason for [...] was admitted for stroke workup at the [facility] about a month and a half [...] Both incorrect = 2 Open and close eyes/knife setter assembler release hand: Obeys both correctly = 0 [...] 9. DM2 (diabetes elio (more content not included)...[facility] Comment on above:Result Comment: Electronically Signed By: Stephanie Mello RN\.br\Date and Time Signed: 04/15/25 06:55EDT\.br\Electronically Co-Signed By: Ruy Molina DO\.br\Date and Time Co-Signed: 04/15/25 09:37 [id number] Note History and Physical Basic Information Admit [...] Patient's daughter Valerie is healthcare power of associate attorney. She was on the phone. She states that for the time being she would like patient to be a full code. She will discuss this with her family and notify us if she makes any changes. Family does note that patient was admitted for a stroke at [facility] about 6 weeks ago. They state [...] other details. NIH Stroke Scale/Score (NIHSS) from [employer] on 04/14/2025 All calculations should be rechecked [...] Lymph Auto: 7.8 % Low (04/14/25 17:08:00) Chester Auto: 9.9 % (04/14/25 17:08:00) Eos Auto: 1.5 % (04/14/25 17:08:00) Basophil Auto: 0.8 % (04/14/25 17:08:00) Neutro Absolute: 6.5 E9/L (04/14/25 17:08:00) Lymph Absolute: 0.6 E9/L Low (04/14/25 17:08:00) Chester Absolute: 0.8 E9/L (04/14/25 17:08:00) Eos Absolute: 0.1 E9/L (04/14/25 17:08:00) Basophil Absolute: 0.1 E9/L (04/14/25 17:08:00) PT: 11 second(s) (04/14/25 17:08:00) INR: 0.98 (04/14/25 17:08:00) PTT: 33.3 second(s) (04/14/25 17:08:00) Glucose Lvl: 245 mg/dL High (04/14/25 17:08:00) BUN: 28 mg/dL High (04/14/25 17:08:00) Creatinine: 1.8 mg/dL High (04/14/25 17:08:00) eGFR: 36 mL (more content not included)...[facility] Inc[facility] on above:Result Comment: Electronically Signed By: Layne VERDUGO DO.mary\Date and Time Signed: 04/15/25 02:30 [id number] NoteHistory and Physical Basic Information Admit Date/Time:04/14/2025 [...] Patient's daughter Valerie is healthcare power of associate attorney. She was on the phone. She states that for the time being she would like patient to be a full code. She will discuss this with her family and notify us if she makes any changes. Family does note that patient was admitted for a stroke at [facility] about 6 weeks ago. They state [...] other details. NIH Stroke Scale/Score (NIHSS) from [employer] on 04/14/2025 All calculations should be rechecked [...] Lymph Auto: 7.8 % Low (04/14/25 17:08:00) Chester Auto: 9.9 % (04/14/25 17:08:00) Eos Auto: 1.5 % (04/14/25 17:08:00) Basophil Auto: 0.8 % (04/14/25 17:08:00) Neutro Absolute: 6.5 E9/L (04/14/25 17:08:00) Lymph Absolute: 0.6 E9/L Low (04/14/25 17:08:00) Chester Absolute: 0.8 E9/L (04/14/25 17:08:00) Eos Absolute: 0.1 E9/L (04/14/25 17:08:00) Basophil Absolute: 0.1 E9/L (04/14/25 17:08:00) PT: 11 second(s) (04/14/25 17:08:00) INR: 0.98 (04/14/25 17:08:00) PTT: 33.3 second(s) (04/14/25 17:08:00) Glucose Lvl: 245 mg/dL High (04/14/25 17:08:00) BUN: 28 mg/dL High (04/14/25 17:08:00) Creatinine: 1.8 mg/dL High (04/14/25 17:08:00) eGFR: 36 mL (more content not included)...[facility] IncComment on above:Result Comment: Electronically Signed By: Layne VERDUGO DO.mary\Date and Time Signed: 04/14/25 22:32 [id number] History of Present illness Narrative* Blaise Chicas [...] Partner Violence: Unknown (01/06/2024) Received from [facility] Safety & Environment Fear of Current [...] and negative PT pedal pulses NEURO: 5.07 Eugene Sheldon monofilament test diminished to digits and forefoot bilaterally 125Hz tuning fork diminished to 1st MPJ bilaterally ORTHO: Positive pain on palpation to nails 1 through 10 Minimal pain on palpation of right foot lesion ASSESSMENT 1. Verruca plantaris 2. Foot pain, right 3. Diabetes mellitus due to underlying condition with diabetic polyneuropathy, unspecified whether care home insulin use ([facility]) 4. 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 History of Present Illness, Associated Treatments and Results - Dx (JOSIAH) Tx BiPAP @ 31/10 AEs [facility] Failed Semeiology Circadian Noct oxim PSG _ ([place]) - _ PAPT ([place]) - AHI=8.1 @ 31/10 (max pressure) MSLT [...] UBOs Tx ASA AEs Hx Recent adm [place] for confusion. Now baseline. Images rev'd. No [...] ? [address] ? [place], [place] [address] ? ? fax Neurology ? Clinical Neurophysiology ? Epilepsy ? Sleep Disorders ? Clinical Informatics documented in this encounterThe Rehabilitation [id number] NoteUT Cardiology - [facility] Subjective Nadir Beht is a 85 y.o. year old male patient being seen for follow up MARK. He was then admitted to [facility] for CVA and switched from Eliquis [...] diuretic therapy. He was admitted to the [facility] in August 2022 due to hyponatremia, hyperkalemia and acute kidney injury, leukocytosis secondary to COVID-19 causing dehydration. I saw him on 05/24/2023 and the office and he had significant evidence of volume overload by exam and echocardiogram. I intensified his diuretic regimen. He ended up getting admitted to the [facility] with acute heart failure exacerbation and [...] On 02/14/2025 he was admitted to the [facility] with altered mental status. brain MRI showed multiple infarcts. He was seen by cardiology consult and Eliquis was changed to Xarelto. He then underwent a transesophageal echocardiogram that showed no evidence of intra cardiac thrombi. The aortic valve stenosis appeared to be severe. He was seen in the emergency room at the [facility] on 03/08/2025 with chest pain episode. [...] Review of Systems Cardiovascu (more content not included)...[facility] 02-28-2025 NotePatient: Nadir Beth Procedure Information Date/Time: 02/28/25 1230 Procedure: TRANSESOPHAGEAL ECHO (MARK) Location: [facility] [...] discussed with attending and fellow. Additional Equipment RequestsTriHealth [facility]02-19-2025 Note Attestation with edits by Ruthie Linda MD at 01/03/2025 10:36 PM I saw, interviewed, examined and evaluated the patient with Nephrology fellow Dr. Jeff Reyes. I participated in the medical management of the patient. I reviewed the fellow's note and agree with the fellow's documentation in the note. Ruthie Linda MD Faculty, Division of Nephrology, Department of Medicine, [facility]. [facility] Patient: Nadir Beth; 84 y.o. Visit date: 01/03/25 Reason for today's visit: Follow up for CKD stage 3, Hypertension, Edema/ Fluid overload, and Electrolytes disturbances SUBJECTIVE: BACKGROUND: Nadir Beth is a 84 y.o. male has a past medical history of Atrial fibrillation ([facility]), CHF (congestive heart failure) ([facility]), Chronic kidney disease, COPD (chronic obstructive pulmonary disease) ([facility]), Coronary artery disease, Diabetes mellitus ([facility]), Heart valve disease, Hypertension, Pericardial effusion, and Sleep apnea. History of paroxysmal atrial fibrillation maintained on anticoagulation with Eliquis, aortic stenosis, renal artery stenosis, and hypertension. He had stenting of the left renal artery from the left radial approach on 05/01/2015 (Express SD 6 mm x 18 mm stent). He was admitted to the [facility] in August 2022 due to hyponatremia, [...] tablet by mouth in (more content not included)...[facility]01-30-2025 NoteUT Cardiology - [facility] Subjective Nadir Beth is a [...] diuretic therapy. He was admitted to the [facility] in August 2022 due to hyponatremia, hyperkalemia and acute kidney injury, leukocytosis secondary to COVID-19 causing dehydration. I saw him on 05/24/2023 and the office and he had significant evidence of volume overload by exam and echocardiogram. I intensified his diuretic regimen. He ended up getting admitted to the [facility] with acute heart failure exacerbation and [...] Physical Exam Constitutional: Appear (more content not included)...[facility] 12-04-2024 Hospital Discharge instructions Patient Education [...] urethra. Follow these instructions at home: Take fccu-haq-eodnskr and prescription medicines only as told by [...] provider. Document Revised: 05/20/2022 Document Reviewed: 05/20/2022 [employer] Patient Education 2023 [email or web address]. Follow Up Care 10/23/2024 15:10:45 With:MARQUIS LOUISE MD, EBENL Address: When:Within 6 Month(s) Comments:Can see neisha BOBBY/FABIO [facility] 01-20-2025 NotePatient Education Urology Benign [...] Follow these instructions at home: ??? Take alec-uvl-gffgbqe and prescription medicines only as told by [...] content not included)...[facility]01-16-2025 History of Present illness Narrative* Blaisenishi Chicas, DPM - 11/30/2024 8:40 AM EST [...] keratosis Basal cell carcinoma COVID-19 11/22/2020 Diabetes ([facility]) Medications: Current Outpatient Medications: acyclovir (Zovirax) [...] on file Intimate Partner Violence: Unknown (01/06/2024) [place] Safety & Environment Fear of Current or [...] and negative PT pedal pulses NEURO: 5.07 Eugene Sheldon monofilament test diminished to digits and forefoot bilaterally 125Hz tuning fork diminished to 1st MPJ bilaterally ORTHO: Positive pain on palpation to nails 1 through 10 Minimal pain on palpation of right foot lesion ASSESSMENT 1. Verruca plantaris 2. Foot pain, right 3. Diabetes mellitus due to underlying condition with diabetic polyneuropathy, unspecified whether salvage determiner insulin use ([facility]) 4. Pain due to onychomycosis of toenails [...] gear Blaise Chicas DPM documented in this encounterThe Rehabilitation [id number] Hospital Discharge instructions Patient Education 11/02/2024 08:25:18 [...] Follow these instructions at home: Medicines Take inqc-yoi-iwrmlru and prescription medicines only as told by [...] or the blood stops without treatment. Take kwog-dez-kpslrqd and prescription medicines only as told by your health care provider. Drink enough fluid to keep your urine pale yellow. This information is not intended to replace advice given to you by your health care provider. Make sure you discuss any questions you have with your health care provider. Document Revised: 07/02/2021 Document Reviewed: 07/02/2021 [employer] Patient Education 2023 [email or web address]. Follow Up Care 10/30/2024 15:26:17 With:ADRIAN GUSTAFSON, ADAN CHO Address: When: Unknown [facility] 12-19-2024 NotePatient Education Urology Hematuria, [...] these instructions at home: Medicines ??? Take wgqr-dds-owxknxb and prescription medicines only as told by [...] the blood stops without treatment. ??? Take hwxt-rne-epoqlyy and prescription medicines only as told by your health care provider. ??? Drink enough fluid to keep your urine pale yellow. This information is not intended to replace advice given to you by your health care provider. Make sure you discuss any questions you have with your health care provider. Document Revised: 07/02/2021 Document Reviewed: 07/02/2021 [employer] Patient Education ? 2023 [email or web address].[facility] 10-23-2024 Hospital Discharge instructions Patient Education 10/23/2024 [...] urethra. Follow these instructions at home: Take noco-unj-yxguwzc and prescription medicines only as told by [...] provider. Document Revised: 05/20/2022 Document Reviewed: 05/20/2022 [employer] Patient Education 2023 [email or web address]. [facility] 12-09-2024 NotePatient Education Urology Benign Prostatic Hyperplasia [...] Follow these instructions at home: ??? Take kkzv-kxc-nefxaje and prescription medicines only as told by [...] content not included)...[facility]11-18-2024 NotePatient Education Urology Benign Prostatic Hyperplasia Benign [...] Follow these instructions at home: ??? Take oemr-zzy-etgcuiv and prescription medicines only as told by [...] content not included)...[facility]11-11-2024 Hospital Discharge instructions Patient Education 09/25/2024 13:21:41 [...] urethra. Follow these instructions at home: Take fqbd-tds-hicknle and prescription medicines only as told by [...] provider. Document Revised: 05/20/2022 Document Reviewed: 05/20/2022 [employer] Patient Education 2023 [employer] Follow Up Care 09/01/2024 09:55:03 With:MARQUIS LOUISE Address: [address] [place] [address] [phone] Business (1) When: Unknown Comments:Follow-up in the office in 2 weeks to discuss next plan With:MARQUIS LOUISE Address: [address] [place] [address] [phone] Business (1) When: Unknown [facility] 11-11-2024 Evaluation + Plan noteExtracted from:Title: Cysto, TRUSAuthor:MARQUIS LOUISE MDDate:09/25/24 Impression and Plan Counseled: Family. Future Appointments Appointment Date:10/02/2024 11:00:00 AM Scheduled Provider:MARQUIS LOUISE MD Location:[facility] Appointment Type:URO Office Visit Future Scheduled Tests Laboratory* CBC w/ Auto Diff 10/01/23 * Comprehensive Metabolic Panel 10/01/23 * Thyroid Stimulating Hormone 10/01/23 [facility] 11-11-2024 NotePatient Education Urology Benign Prostatic Hyperplasia [...] Follow these instructions at home: ??? Take szms-lxu-gcgwpib and prescription medicines only as told by [...] content not included)...[facility]10-31-2024 History of Present illness Narrative* Blaise Chicas [...] Partner Violence: Unknown (01/06/2024) [facility] [place] Safety & Environment Fear [...] and negative PT pedal pulses NEURO: 5.07 Eugene Sheldon monofilament test diminished to digits and forefoot bilaterally 125Hz tuning fork diminished to 1st MPJ bilaterally ORTHO: Positive pain on palpation to nails 1 through 10 Minimal pain on palpation of right foot lesion ASSESSMENT 1. Verruca plantaris 2. Foot pain, right 3. Diabetes mellitus due to underlying condition with diabetic polyneuropathy, unspecified whether salvage determiner insulin use ([facility]) 4. Pain due to onychomycosis of toenails [...] gear Blaise Chicas DPM documented in this encounterThe Rehabilitation [id number] History of Present illness Narrative* Rodney Joy [...] Forehead, Right Hand - Posterior, Right [place], Right Wrist - Posterior Erythematous scaly papules [...] limited to risks of scarring, darker or unit clerk pigmentary changes, recurrence, incomplete removal and infection. [...] Forehead, Right Hand - Posterior, Right [place], Right Wrist - Posterior 3. Lentigines (2) [...] Next Visit: 1 year documented in this encounterThe Rehabilitation [id number] Telephone encounter Note* Telephone Encounter - Sammy Esposito - 08/17/2024 11:54 AM EDT Spoke with advised her of Dr. Montoya's answer and if he had any issues to call back. The Rehabilitation [id number] Miscellaneous Notes* Telephone Encounter - Sammy Esposito [...] asleep at the table. documented in this encounterThe Rehabilitation [id number] Telephone encounter Note* Telephone Encounter - Sammy [...] after he fell asleep at the table. The Rehabilitation [id number] Hospital Discharge instructions Patient Education 08/08/2024 10:44:33 [...] including vitamins, herbs, eye drops, creams, and xrzl-bbq-tkwntpd medicines. Any problems you or family members [...] provider tells you to take them. Taking vsgp-ess-fzsjqst medicines, vitamins, herbs, and supplements. Tests You [...] Follow these instructions at home: Medicines Take tpzk-yyu-wjtqtgn and prescription medicines only as told by [...] provider. Document Revised: 07/15/2022 Document Reviewed: 06/13/2021 [employer] Patient Education 2023 [email or web address]. Follow Up Care 08/07/2024 08:55:26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
[2025-09-25 15:44] LABS: Alanine Aminotransferase 36 U/L (16-63); Albumin Globulin Ratio 0.8; Albumin Level 3.4 g/dL (3.4-5.0); Alkaline Phosphatase 104 U/L (46-116); Anion Gap 11.8; Aspartate Amino Transferase 24 U/L (15-37); Blood Urea Nitrogen 39.0 mg/dL (7.0-18.0); Calcium 9.3 mg/dL (8.5-10.1); Carbon Dioxide 30.6 mmol/L (21.0-32.0); Chloride 100 mmol/L (98-107); Estimated GFR (African America 40 (>=60 mL/min/1.73m^2); Estimated GFR (Non-African Ame 33 (>=60 mL/min/1.73m^2); Globulin 4.2 g/dL; Glucose 220 mg/dL (74-106); Potassium 4.4 mmol/L (3.5-5.1); Sodium 138 mmol/L (136-145); Total Protein 7.6 g/dL (6.4-8.2)
== END 2025-09-25 15:01 | disposition home or self-care (01) ==
LOC: LAB 15:00
PROVIDERS: PCP Family Medicine; Visit Provider Family Medicine
DX: I50.9 Heart failure, unspecified (principal)
CPT/HCPCS: 36415; 80053

== ENCOUNTER 2025-09-26 09:32 | Outpatient (OUT) | payer MEDICARE, SELFPAY ==
--- OUTSIDE RECORDS SUMMARY | 2025-09-20 11:40 | XMS_ITS | Encounter Summary ---
Author Organization [facility] Address [address] [place] [address] Care Team Providers Care Front Loader Residential Driver Name Role Phone Pj Sung MD Primary Care Provider [phone] Reason for Visit * ReasonCommentsDM Foot Care Encounter Details DateTypeDepartmentCare Team (Latest Contact Info)Prxocbptxxm59/06/2025 11:40 AM ESTOffice Visit [facility] [address] [facility] [address] [place] [address] Blaise Dc, DPM 3[address] [facility] [place] 5 [place] [address] Verruca plantaris (Primary Dx); Foot pain, right; Diabetes mellitus due to underlying condition with diabetic polyneuropathy, unspecified whether meterman insulin use (HCC); Pain due to onychomycosis of toenails of both feet Social History Tobacco UseTypesPacks/DayYears UsedDateSmoking Tobacco: FormerCigarettes Smokeless Tobacco: Never Tobacco Cessation:Counseling Given: Yes Alcohol UseStandard Drinks/WeekCommentsNever0 (1 standard drink = 0.6 oz pure alcohol)caffeine 1-2 cups/daySex and Gender InformationValueDate RecordedSex Assigned at BirthNot on fileLegal UruTaqy3201/27/2023 6:35 PM EDTGender Identity Not on fileSexual OrientationNot on filedocumented as of this encounter Last Filed Vital Signs Vital SignReadingTime TakenCommentsBlood Pressure--Pulse--Temperature-- Respiratory Wdow879411/20/2024 11:35 AM ESTOxygen Saturation--Inhaled Oxygen Concentration--Tgwcxl35.2 kg (179 lb)09/20/2025 11:35 AM NTFOkbskp252.7 cm (5' 8 )09/20/2025 11:35 AM ESTBody [...] Strain: Low Risk (05/10/2025) Received from [facility] Overall Financial Resource Strain (CARDIA) Difficulty of Paying Living Expenses: Not hard at all Food Insecurity: No Food Insecurity (05/10/2025) Received from [facility] Hunger Vital Sign Within the past 12 months, you worried that your food would run out before you got the money to buymore.: Never true Ran Out of Food in the Last Year: Not on file Transportation Needs: No Transportation Needs (05/10/2025) Received from [facility] Transportation In the past 12 months, has lack of transportation kept you from medical appointments or from getting medications?: No Lack of Transportation (Non-Medical): Not on file Physical Activity: Not on file Stress: Not on file Social Connections: Not on file Intimate Partner Violence: Unknown (05/10/2025) Received from [facility] Humiliation, Afraid, Rape, and Kick questionnaire Within the last year, have you been afraid of your partner or ex-partner?: No Emotionally Abused: Not on file Physically Abused: Not on file Sexually Abused: Not on file Housing Stability: Low Risk (05/10/2025) Received from [facility] Housing Stability Vital Sign In the last 12 months, was there a time when you were not able to pay the mortgage or rent on time?: No Number of Times Moved in the Last Year: Not on file At any time in the past 12 months, were you homeless or living in a retirement (including now)?: No ROS: Gastrointestinal: denies abdominal [...] and negative PT pedal pulses NEURO: 5.07 [place] Sheldon monofilament test diminished to digits and forefoot bilaterally 125Hz tuning fork diminished to 1st MPJ bilaterally ORTHO: Positive pain on palpation to nails 1 through 10 Minimal pain on palpation of right foot lesion ASSESSMENT 1. Verruca plantaris 2. Foot pain, right 3. Diabetes mellitus due to underlying condition with diabetic polyneuropathy, unspecified whether meterman insulin use (HCC) 4. Pain due to [...] Plan of Treatment DateTypeDepartmentCare Team (Latest Contact Info)Hyvgroaiafd41/25/2025 1:45 PM ESTOffice Visit [facility] [address] [place] [address] Lenin Montoya MD 0530 [facility] [address] [place], [place] [id number] 12/11/2025 1:15 PM ESTOffice Visit [facility] [address] [place] [address] Hanane Chris MD [address] [facility] [address] [place] [address] 12/13/2025 10:30 AM ESTOffice Visit [facility] [address] [facility] [address] [place] [address] Blaise Dc DPM [address] [facility] [place] 5 [place] [address] 09/10/2026 1:15 PM EDTOffice Visit [facility] [address] [facility] [address] [place] [address] Mercedes Joy MD [address] [facility] 350 [place] [address] documented as of this encounter Visit Diagnoses Diagnosis Verruca plantaris- Primary Plantar wart Foot pain, right Pain in soft tissues of limb Diabetes mellitus due to underlying condition with diabetic polyneuropathy, unspecified whether meterman insulin use (HCC) Pain due to onychomycosis of toenails of both feet documented in this encounter Care Teams Team MemberRelationshipSpecialtyStart DateEnd Date Pj Sung MD [address] [place] [address] PCP - GeneralFamily Medicine12/02/23documented as of this encounter
--- NOTE | 2025-09-26 | CT_ITS ---
The [address] [address] Patient Name: NADIR HEREDIA MRN: [id number] date: 1940 Sex: M Assigned Patient Location: CT Current Patient Location: CT Accession/Order Number: [id number] Exam Date: 09/26/2025 09:40 Report Date: 09/26/2025 10:11 At the request of: VAN YOUSSEF MD Procedure: CT head/brain wo con CT BRAIN WITHOUT CONTRAST: CLINICAL HISTORY: Altered mental status with confusion and memory issues; R41.82 COMPARISON: 05/08/2025 TECHNIQUE: Contiguous axial unenhanced images were obtained through the brain. This CT exam was performed using one or more following dose reduction techniques: Automated exposure control, adjustment of the mA and/or kV according to patient size, or use of iterative reconstruction technique. FINDINGS: There is generalized atrophy. The ventricles are normal in size and position. Mild microvascular changes are noted. There are no additional areas of abnormal attenuation. There is no hemorrhage, mass effect or extra-axial collections. The imaged paranasal sinuses and mastoid air cells are clear. There is vertebral artery and carotid siphon plaque. CT/CT head/brain wo con IMPRESSION: ATROPHY AND CHRONIC MICROVASCULAR CHANGES. NO ACUTE INTRACRANIAL ABNORMALITY. Impression dictated by: Radha Wright M.D. 09/26/2025 10:11 AM Dictation Location: [place] [address] Electronically authenticated by: [id number] Y Date: 09/26/2025 10:11
--- OUTSIDE RECORDS SUMMARY | 2025-09-26 09:34 | XMS_ITS | Encounter Summary ---
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 Name Role Phone Pj Sung MD Primary Care Provider [phone] Encounter Details DateTypeDepartmentCare Team (Latest Contact Info)Kgefvqaovkw10/06/2025amboo flowsheet [facility] 112 [facility] 120 [place] [address] Blaise Dc, DPJim 3006 [facility] 5 [place] [address] Social History Tobacco UseTypesPacks/DayYears UsedDateSmoking Tobacco: FormerCigarettes Smokeless Tobacco: NeverAlcohol UseStandard Drinks/WeekCommentsNever0 (1 standard drink = 0.6 oz pure alcohol)caffeine 1-2 cups/daySex and Gender InformationValueDate RecordedSex Assigned at BirthNot on fileLegal SexMale 01/27/2023 6:35 PM EDTGender IdentityNot on fileSexual OrientationNot on file documented as of this encounter Plan of Treatment DateTypeDepartmentCare Team (Latest Contact Info)Utqncwmsuiv14/25/2025 1:45 PM ESTOffice Visit [facility] [address] [facility] 310 [place] [address] Lenin Montoya MD 0105 [facility] 111 [place] [address] 12/11/2025 1:15 PM ESTOffice Visit [facility] [address] [place] [address] Hanane Chris MD [address] [facility] [address] [place] [address] 12/13/2025 10:30 AM ESTOffice Visit [facility] 112 [facility] 120 [place] [address] Blaise Dc DPM 3006 [facility] 5 [place] [address] 09/10/2026 1:15 PM EDTOffice Visit [facility] [address] [facility] [address] 350 [place] [address] Mercedes Joy MD [address] [facility] 350 [place] [address] documented as of this encounter Visit Diagnoses Not on filedocumented in this encounter Care Teams Team MemberRelationshipSpecialtyStart DateEnd Date Pj Sung MD [address] [facility] [place] [address] [phone] PCP - GeneralFamily Medicine12/02/23documented as of this encounter
--- OUTSIDE RECORDS SUMMARY | 2025-09-26 09:35 | XMS_ITS | Encounter Summary ---
Author Organization [facility] Address [address] [place] [address] Care Team Providers Care Drain Layer Name Role Phone Pj Sung MD Primary Care Provider [phone] Encounter Details DateTypeDepartmentCare Team (Latest Contact Info)Givwuzfimqp84/03/2025Results Follow-Up [facility] [address] [facility] 350 [place] [address] Mercedes Joy MD [address] [facility] [address] 350 [place] [address] Dermatopathology exam Social History Tobacco UseTypesPacks/DayYears UsedDateSmoking Tobacco: FormerCigarettes Smokeless Tobacco: NeverAlcohol UseStandard Drinks/WeekCommentsNever0 (1 standard drink = 0.6 oz pure alcohol)caffeine 1-2 cups/daySex and Gender InformationValueDate RecordedSex Assigned at BirthNot on fileLegal SexMale 01/27/2023 6:35 PM EDTGender IdentityNot on fileSexual OrientationNot on file documented as of this encounter Plan of Treatment DateTypeDepartmentCare Team (Latest Contact Info)Hfaqnfneots67/25/2025 1:45 PM ESTOffice Visit [facility] [address] [facility] [address] [place] [address] Lenin Montoya MD 3530 [facility] [address] [place], [place] [address] 12/11/2025 1:15 PM ESTOffice Visit [facility] [place] [facility] [address] [place] [address] Hanane Chris MD [address] [facility] [address] 250 [place] [address] 12/13/2025 10:30 AM ESTOffice Visit [facility] 112 [facility] 120 [place] [address] Blaise Dc DPJim 3006 [facility] 5 [place] [address] 09/10/2026 1:15 PM EDTOffice Visit [facility] [address] [place] [address] Mercedes Joy MD [address] [facility] 350 [place] [address] documented as of this encounter Visit Diagnoses Not on filedocumented in this encounter Care Teams Team MemberRelationshipSpecialtyStart DateEnd Date Pj Sung MD [address] [facility] [place] [address] PCP - GeneralFamily Medicine12/02/23documented as of this encounter
--- OUTSIDE RECORDS SUMMARY | 2025-09-26 09:35 | XMS_ITS | Encounter Summary ---
Author Organization [facility] Address [address] [place] [address] Care Team Providers Care Calender Feeder Name Role Phone Pj Sung MD Primary Care Provider [phone] Reason for Visit * ReasonCommentsMed Refill Encounter Details DateTypeDepartmentCare Team (Latest Contact Info)Omdksmsfmxq55/04/2025Refill [facility] [address] [address] Lenin Montoya MD [address] [phone] Neurogenic pain Social History Tobacco UseTypesPacks/DayYears UsedDateSmoking Tobacco: FormerCigarettes Smokeless Tobacco: NeverAlcohol UseStandard Drinks/WeekCommentsNever0 (1 standard drink = 0.6 oz pure alcohol)caffeine 1-2 cups/daySex and Gender InformationValueDate RecordedSex Assigned at BirthNot on fileLegal SexMale 01/27/2023 6:35 PM EDTGender IdentityNot on fileSexual OrientationNot on file documented as of this encounter Plan of Treatment DateTypeDepartmentCare Team (Latest Contact Info)Feopxsehqxf97/25/2025 1:45 PM ESTOffice Visit [facility] [address] [facility] 310 [place] [address] Lenin Montoya MD [address] [id number] 12/11/2025 1:15 PM ESTOffice Visit [facility] [place] [facility] [address] [place] [address] Hanane Chris MD [address] [place] [address] 12/13/2025 10:30 AM ESTOffice Visit [facility] 112 [facility] 120 [place] [address] Blaise Dc DPM 3006 [facility] 5 [place] [address] 09/10/2026 1:15 PM EDTOffice Visit [facility] [facility] [address] [place] [address] Mercedes Joy MD [address] [facility] 350 [place] [address] documented as of this encounter Visit Diagnoses Diagnosis Neurogenic pain documented in this encounter Care Teams Team MemberRelationshipSpecialtyStart DateEnd Date Pj Sung MD [address] [facility] [place] [address] PCP - GeneralFamily Medicine12/02/23documented as of this encounter
--- OUTSIDE RECORDS SUMMARY | 2025-09-26 09:35 | XMS_ITS | Clinical Summary ---
Author Organization [facility] Address [address] [place], [place] [address] Care Team Providers Care Animal Care Worker Name Role Phone Pj Sung MD Primary Care Provider [phone] Allergies Active AllergyReactionsCriticalityNoted DateCommentsNitro-PatchIntolerance 08/21/2013 Medications MedicationSigDispense [...] ophthalmic suspension 07/19/2016Active Active Problems ProblemNoted DateDiagnosed LktgKecobdivyfnglj48/07/2013 Social History Tobacco UseTypesPacks/DayYears UsedDateSmoking Tobacco: NeverSmokeless Tobacco: NeverAlcohol UseStandard Drinks/WeekCommentsNo0 (1 standard drink = 0.6 oz pure alcohol)Sex and Gender InformationValueDate RecordedSex Assigned at BirthNot on fileLegal FxjXxlg99/02/2012 10:12 AM ESTGender IdentityNot on fileSexual OrientationNot on file Last Filed Vital Signs Vital SignReadingTime TakenCommentsBlood Bhdedqdl265/ 10:47 AM EDT Tjcaw515008/24/2016 10:47 AM XIOFcmthcjbggy05.4 ??C (97.5 ??F)08/24/2016 10:47 AM EDTRespiratory Kaqp6690 10:47 AM EDTOxygen Saturation--Inhaled Oxygen Concentration--Ashdig427.7 kg (226 lb 6.4 oz)08/24/2016 10:47 AM PVSFxnhcv930.9 cm (6')08/24/2016 10:47 AM EDTverified dmcBody Mass Index30.7108/24/2016 10:47 AM EDT Plan of Treatment Health MaintenanceDue DateLast DoneCommentsAnxiety Ciiildeai48/25/1957Depression Vqhhzwmei70/25/1957DTaP,Tdap,Td Vaccine (1 - Tdap)1958Diabetes Screening 02/07/1984Pneumococcal Vaccine: 50+ (1 of 1 - PCV)1989Shingrix Vaccine (1 of 2)1989RSV Vaccine (1 - 1-dose 75+ series)2014dvance Directive Eyfdoduolz90/01/2025ovid-19 Vaccine ( - 2024- season)2025Influenza Vaccine (#1)2025 Insurance Care Teams Team MemberRelationshipSpecialtyStart DateEnd Pj Sung MD PCP - GeneralFamily Cziwtwae66/10/12
--- OUTSIDE RECORDS SUMMARY | 2025-09-26 09:35 | XMS_ITS | Encounter Summary ---
Author Organization [facility] Address [address] [place] [address] Care Team Providers Care Chair Finisher Name Role Phone Pj Sung MD Primary Care Provider [phone] Encounter Details DateTypeDepartmentCare Team (Latest Contact Info)Wudzdqpmaht07/06/2025Travel Social History Tobacco UseTypesPacks/DayYears UsedDateSmoking Tobacco: FormerCigarettes Smokeless Tobacco: NeverAlcohol UseStandard Drinks/WeekCommentsNever0 (1 standard drink = 0.6 oz pure alcohol)caffeine 1-2 cups/daySex and Gender InformationValueDate RecordedSex Assigned at BirthNot on fileLegal SexMale 01/27/2023 6:35 PM EDTGender IdentityNot on fileSexual OrientationNot on file documented as of this encounter Plan of Treatment DateTypeDepartmentCare Team (Latest Contact Info)Hfrihdklpwn66/25/2025 1:45 PM ESTOffice Visit [facility] [address] [facility] 310 [place] [address] Lenin Montoya MD 9982 [facility] [address] [place] [address] 12/11/2025 1:15 PM ESTOffice Visit [facility] [address] [facility] [address] [place] [address] Hanane Chris MD [address] [place] [address] 12/13/2025 10:30 AM ESTOffice Visit [facility] [address] [place] [address] Blaise Dc DPM 3006 [facility] 5 [place] [address] 09/10/2026 1:15 PM EDTOffice Visit [facility] [facility] [address] [place] [address] Mercedes Jyo MD [address] [place] [address] documented as of this encounter Visit Diagnoses Not on filedocumented in this encounter Care Teams Team MemberRelationshipSpecialtyStart DateEnd Date Pj Sung MD [address] [facility] [place] [address] [phone] PCP - GeneralFamily Medicine12/02/23documented as of this encounter
--- OUTSIDE RECORDS SUMMARY | 2025-09-26 09:35 | XMS_ITS | Encounter Summary ---
Author Organization [facility] Address [address] [place] [address] Care Team Providers Care Loan Approver Name Role Phone Pj Sung MD Primary Care Provider [phone] Pj Sung MD Unavailable Encounter Details DateTypeDepartmentCare Team (Latest Contact Info)Ftbyxjkglfz83/31/2025Telephone [facility] at [facility] [address] [place] [address] Caro Calixto MA Social History Tobacco UseTypesPacks/DayYears UsedDateSmoking Tobacco: FormerCigarettes Smokeless Tobacco: NeverAlcohol UseStandard Drinks/WeekCommentsNot Currently0 (1 standard drink = 0.6 oz pure alcohol)[facility] UtilitiesAnswerDate RecordedIn the past 12 months has [...] heating?Not hard at all05/10/2025PHQ-2AnswerDate RecordedPatient Health Questionnaire-2 Mwxey001UT Safety & EnvironmentAnswerDate RecordedFear of Current or [...] were you homeless or living in a long term (including now)? No05/10/2025Hunger Vital SignAnswerDate RecordedWithin the past 12 months, you worried that your food would run out before you got the money to buymore.Never true05/10/2025Ran Out of Food in the Last YearNot on file05/10/2025Sex and Gender InformationValueDate RecordedSex Assigned at UrnwfZfrz01/27/2023 8:02 PM EDTLegal UfrDtsf2305/13/2022 10:17 PM EDTGender NuaviazySqvp15/27/2023 8:02 PM EDT Sexual OrientationHeterosexual or Vzathrjf73/27/2023 8:02 PM EDTdocumented as of this encounter Plan of Treatment DateTypeDepartmentCare Team (Latest Contact Info)Udpurhlseis51/19/2025 10:00 AM ESTOffice Visit [facility] [address] [place] [facility] [place] [address] Mike Cisneros MD [address] [place] [address] 01/30/2026 3:00 PM [facility]TF[facility] [address] [place] [address] Ruthie Lnida MD [address] [facility] [place] [place] [address] documented as of this encounter Visit Diagnoses Not on filedocumented in this encounter Care Teams Team MemberRelationshipSpecialtyStart DateEnd Date Pj Sung MD [address] [facility] [place] [address] PCP - GeneralFamily Medicine05/10/25 Pj Sung MD [address] [place] [address] 05/10/25documented as of this encounter
--- OUTSIDE RECORDS SUMMARY | 2025-09-26 09:35 | XMS_ITS | Clinical Summary ---
Author Organization [facility] Address [address] [facility] [place] [address] Care Team Providers Care Retail Banking Manager Name Role Phone Pj Sung MD Primary Care Provider [phone] Allergies Active AllergyReactionsCriticalityNoted DateCommentsIodinated Contrast Media 08/24/2023 Other Reaction(s): Unknown Xhjdvikljtudh51/10/2022 Other Reaction(s): Not available, Unknown Ggglwdm5608/24/2023 Other Reaction(s): elevated liver enzymes, Unknown Medications [...] PPI. (Continue B12 injections.) Sequelae of cerebral kfnuiqlnik33/27/2025 Assessment & Plan (07/27/2025 1:18 PM EDT): (Anticoag managed by cardiology.) Assessment & Plan (07/10/2025 11:24 AM EDT): (Anticoag managed by cardiology.) Assessment & Plan (05/08/2025 4:35 PM EDT): (Continue ASA, Xeralto - was on eliquis, statin.) Assessment & Plan (04/10/2025 1:49 PM EDT): (Continue ASA.) Get MR brain report -- not received. (We have only MRA) Carotid stenosis, wkptaftfy70/27/2025 Assessment & Plan (07/27/2025 1:18 PM EDT): [...] this office take over JOSIAH.] Split-night study ([facility] [place]), split for AHI >= 5. - not contacted, please check on. Afterward, will need new machine, supplies, etc. Download 1 mo then before appt. Assessment & Plan (07/10/2025 11:24 AM EDT): Family requesting that this office take over JOSIAH. Split-[place] study ([facility] [place]), split for AHI >= 5. Afterward, will need new machine, supplies, etc. Download 1 mo then before appt. Assessment & Plan (05/08/2025 4:35 PM EDT): Family will bring CPAP to SNF. Has been noncompliant at home May benefit from re titration study Managed by Dr John in [place] Assessment & Plan (04/10/2025 1:49 PM EDT): Still have only PAPT. Get original PSG.0 Assessment & Plan (08/01/2024 11:49 AM EDT): Get original PSG (only received PAPT). Assessment & Plan (01/11/2024 2:07 PM EST): Get sleep studies for our records - [facility]. Also send to [facility] (though not sure if liliya'd there). Nigpcuhuutcfzl67/23/2024 Assessment & Plan (05/08/2025 4:35 PM EDT): (Continue current regimen.) Pjwcqv1901/07/2024 Overview (07/27/2025): --- BET. Perhaps mild degree [...] desired. Resolved Problems ProblemNoted DateDiagnosed DateResolved DateParkinson jwhlpfp5101/07/2024 01/11/2024 Encounters DateTypeDepartmentCare NropFqinhhvfvew69/06/2025 11:40 AM ESTOffice Visit [facility] [address] [facility] 120 [place] [address] Blaise Dc DPM Verruca plantaris (Primary Dx); Foot pain, right; Diabetes mellitus due to underlying condition with diabetic polyneuropathy, unspecified whether skilled nursing insulin use (HCC); Pain due to onychomycosis of toenails of both feet09/20/2025amboo flowsheet [facility] [place] [facility] [address] [facility] [address] [place] [address] Blaise Dc DPM 09/20/20256443Obqnau64/04/2025[facility]ill [facility] [address] [place] [address] Lenin Montoya MD Neurogenic pain09/17/2025Results Follow-Up [facility] [place] [facility] [address] [place] [address] Mercedes Joy MD Dermatopathology exam09/11/2025 1:15 PM EDTOffice Visit [facility] [address] [facility] [address] [place] [address] Mercedes Joy MD Seborrheic keratosis (Primary Dx); Actinic keratosis; Lentigines; Neoplasm of unspecified behavior of bone, soft tissue, and skin09/11/2025amboo flowsheet [facility] [place] [facility] [address] [facility] [address] [place] [address] Mercedes Joy MD 09/11/20256427Uhlmnn87/08/2025Telephone [facility] [address] [facility] [address] [address] Claritza Nam MA 08/14/2025Telephone [facility] [phone] [facility] [address] [address] Claritza Nam MA 07/27/2025 12:45 PM EDTOffice Visit [facility] [address] [facility] 310 [place] [address] Lenin Montoya MD Tremor (Primary Dx); Neurogenic pain; Carotid stenosis, bilateral; Sequelae of cerebral infarction; JOSIAH (obstructive sleep apnea); B12 deficiency; Cervical paraspinal muscle spasm07/27/2025amboo flowsheet [facility] [address] [place] [address] Lenin Montoya MD 07/27/20253396Yjphwr68/26/2025 10:30 AM EDTOffice Visit [facility] [address] [facility] [address] [place] [address] Lenin Montoya MD Tremor (Primary Dx); Neurogenic pain; Carotid stenosis, bilateral; Sequelae of cerebral infarction; JOSIAH (obstructive sleep apnea); Cervical paraspinal muscle spasm; B12 risnuwmexu84/26/2025amb flowsheet [facility] [address] [place] [address] Lenin Montoya MD 07/10/20258021Teqnbt84/14/2025 11:50 AM EDTOffice Visit [facility] [address] [address] Blaise Dc DPM Verruca plantaris (Primary Dx); Foot pain, right; Diabetes mellitus due to underlying condition with diabetic polyneuropathy, unspecified whether skilled nursing insulin use (HCC); Pain due to onychomycosis of toenails of both feet06/28/2025[facility] flowsheet [facility] [address] [address] Blaise Dc DPM 06/28/2025Travelfrom Last 3 Months Family History Medical HistoryRelationNameCommentsHeart diseaseFatherCancerMotherMelanomaNeg Hx RelationNameStatusCommentsFatherDeceasedMotherDeceased Social History Tobacco UseTypesPacks/DayYears UsedDateSmoking Tobacco: FormerCigarettes Smokeless Tobacco: Never Tobacco Cessation:Counseling Given: Yes Alcohol UseStandard Drinks/WeekCommentsNever0 (1 standard drink = 0.6 oz pure alcohol)caffeine 1-2 cups/daySex and Gender InformationValueDate RecordedSex Assigned at BirthNot on fileLegal WimOfty7001/27/2023 6:35 PM EDTGender Identity Not on fileSexual OrientationNot on file Last Filed Vital Signs Vital SignReadingTime TakenCommentsBlood Nouxhlmt815/7910 8:19 AM EDT Yfylv747509/14/2024 8:19 AM EDTTemperature--Respiratory Virf366511/20/2024 11:35 AM ESTOxygen Saturation--Inhaled Oxygen Concentration--Uuhxxe32.2 kg (179 lb) 09/20/2025 11:35 AM BIWVdvttm920.7 cm (5' 8 )09/20/2025 11:35 AM ESTBody Mass Index27.22111/20/2024 11:35 AM EST Plan of Treatment DateTypeDepartmentCare Team (Latest Contact Info)Tsmscdujbox54/25/2025 1:45 PM ESTOffice Visit [facility] [place] [facility] [address] [place] [address] Lenin Montoya MD 5982 [facility] 111 [place] [address] 12/11/2025 1:15 PM ESTOffice Visit [facility] [place] [facility] [address] [place] [address] Hanane Chris MD [address] [facility] 250 [place] [address] 12/13/2025 10:30 AM ESTOffice Visit [facility] 112 [facility] 120 [place] [address] Blaise Dc DPM 3006 [facility] 5 [place] [address] 09/10/2026 1:15 PM EDTOffice Visit [facility] [place] [facility] [address] [facility] 350 [place] [address] Mercedes Joy MD [address] [place] [address] Health MaintenanceDue DateLast DoneCommentsInfluenza Vaccine (#1)07/16/2025 08/15/2024, 08/20/2023, 08/18/2022, Additional history existsCOVID-19 Vaccine ( season), 08/16/2023, 08/26/2021, Additional history existsPneumococcal Vaccine: 65+ ZknkjAhxqmmyaw46/02/2017, 01/28/2015, 01/28/2015 Procedures Procedure NamePriorityDate/TimeAssociated DiagnosisCommentsSKIN / NAIL BIOPSY Fhfihqf5109/11/2025 1:13 PM EDT Neoplasm of unspecified behavior of bone, soft tissue, and skin CRYOTHERAPY SKIN WKTZALHpyfozn91/28/2025 1:10 PM EDT Actinic keratosis DERMATOPATHOLOGY YRQMRxlpmvm49/28/2025 12:00 AM EDT Neoplasm of unspecified behavior [...] AtPathologist SignatureSPECIMEN TYPE SPECIMEN: LEFT KNEE-ANTERIOR [facility] HGBBAVBIJSRWWF46 Code C44.711AURORA DIAGNOSTICSPROTOCOLF - FLATAURORA DIAGNOSTICSFinal Diagnosis BASAL CELL CARCINOMA (SEE COMMENT). COMMENT: The tumor shows multiple growth patterns including multicentric, nodular and infiltrating.??It is present at the peripheral edges of the tissue. [facility] DIAGNOSTICSGross TextAURORA DIAGNOSTICSMicroscopic DescriptionMicroscopic examination performed.[facility] [id number]*1AURORA DIAGNOSTICSSpecimen (Source)Anatomical Location / LateralityCollection Method / VolumeCollection TimeReceived TimeSkinTopography unknown / Omirgvk3309/11/2025 1:13 PM EDTComment: Differential Diagnosis: BCC Check Margins: No Size of lesion: 1.7 x 1.2 cm Narrative Authorizing ProviderResult TypeResult StatusEmily Cara [facility] PATHOLOGY ORDERABLESFinal ResultPerforming OrganizationAddressCity/State/ZIP CodePhone Number [facility] from Last 3 Months Insurance Care Teams Team MemberRelationshipSpecialtyStart DateEnd Pj Sung MD [address] [place] [address] PCP - GeneralFamily Medicine12/02/23
--- OUTSIDE RECORDS SUMMARY | 2025-09-26 09:35 | XMS_ITS | Clinical Summary ---
Author Organization [facility] Address [address] [place] [address] Phone Care Team Providers Care Director Writing Name Role Phone Unavailable Primary Care Provider Unavailabl e Social History Tobacco UseTypesPacks/DayYears UsedDateSmoking Tobacco: Never AssessedSex and Gender InformationValueDate RecordedSex Assigned at BirthNot on fileLegal Sex Male10/09/2022 2:16 PM ESTGender IdentityNot on fileSexual OrientationNot on file Plan of Treatment Not on file
--- OUTSIDE RECORDS SUMMARY | 2025-09-26 09:35 | XMS_ITS | Clinical Summary ---
Author Organization [facility] tem Address [id number] [address] [place] [address] Care Team Providers Care Otolaryngology Rep Name Role Phone Pj Sung MD Primary Care Provider [phone] Social History Tobacco UseTypesPacks/DayYears UsedDateSmoking Tobacco: Never AssessedSex and Gender InformationValueDate RecordedSex Assigned at BirthNot on fileLegal Sex Male02/14/2025 11:32 AM EDTGender IdentityNot on fileSexual OrientationNot on file Plan of Treatment Health MaintenanceDue DateLast DoneCommentsDepression Bpgybpovn23/25/1951Tobacco Deoqypmcb07/25/1952Fall Risk Owhaidmze06/25/2004COVID-19 Vaccine ( season)/12/2022, 10/21/2022, 08/26/2021, Additional history exists Influenza Rnghxxa26/04/2023, 08/18/2022, 09/11/2021, Additional history existsDTaP,Tdap and Td Vaccines (2 - Td or Tdap)RSV ( or age 60+ yrs)Wurkfswgg78/07/2023Zoster (Shingles) VaccineCompleted 04/05/2025, 11/06/2020, 10/30/2019, Additional history exists Medical Devices Not on file Insurance Care Teams Team MemberRelationshipSpecialtyStart DateEnd Pj Sung MD [address] [facility], [place] [address] PCP - [facility] Medicine02/14/25
--- OUTSIDE RECORDS SUMMARY | 2025-09-26 09:35 | XMS_ITS | Clinical Summary ---
Author Organization [facility] Address [address] [place] [address] Care Team Providers Care Wildlife Biostation Research Ecologist Name Role Phone Pj Sung MD Primary Care Provider [phone] Pj Sung MD Unavailable Allergies Active AllergyReactionsCriticalityNoted DateCommentsAminolevulinic Acid Hcl Pmrkbwr2505/10/2025Iodinated Contrast Media07/17/2022Iodinated Contrast Media Zdkplhy7105/10/20255233Vifucmiduvxwu19/02/3589DrmhvpgexwglvOddob14/26/2025 hypotension PwubylqsmgeStvuyoh81/26/5375Vlsjamh-Anr-Syk Reductase Myaeucxkjh95/02/2022 Medications MedicationSigDispense QuantityRefillsLast FilledStart DateEnd DateStatus acyclovir [...] TAVR (transcatheter aortic valve replacement) 5Aortic stenosis, duuzhw655Chronic kidney aqwpjkf8205/11/2025 Assessment & Plan (05/15/2025 1:32 PM EDT): [...] function, creatinine today 1.56, will monitor Elevated cjkbnsol21/27/2025 Assessment & Plan (05/15/2025 1:19 PM EDT): [...] of chronic kidney disease and CHF Primary rimzrauvhibp30/26/2025 Assessment & Plan (05/15/2025 1:19 PM EDT): [...] start JAY or ARB Acute congestive heart qttbrud1005/10/2025 Assessment & Plan (05/15/2025 1:32 PM EDT): [...] diabetes mellitus, with long-term current use of yqactuk2305/10/2025 Assessment & Plan (05/15/2025 1:19 PM EDT): [...] EDT): Insulin blood sugar check diet Other kccvddjgabeprw78/26/2025 Assessment & Plan (05/15/2025 1:19 PM EDT): [...] AM EDT): Antilipemic agents diet Chronic atrial ovxpubxnfppn82/26/2025 Assessment & Plan (05/15/2025 1:19 PM EDT): [...] Plan (05/11/2025 5:43 PM EDT): Angina pectoris, yyufgjzm30/25/2025 Assessment & Plan (05/11/2025 5:43 PM EDT): COrders from past 72 hours: Case Request Health Services Administrator: Coronary angiography, Right heart cath; Standing Cardiac catheterization; Standing Nonrheumatic aortic valve /25/2025bnormal findings on diagnostic imaging of heart and coronary ruvyugdbfzx81/28/2025quired buried penis 12/14/20240148Xttswxgicpxyat18/30/0724Arvtjidfw18/30/2025PH with urinary pmyayxxgpzz12/30/2025Gross izlpolcas19/30/2025Incomplete bladder emptying 12/14/2024OAB (overactive bladder)12/14/2024Post-void yrvqqhogu18/30/2025ute kidney mqbeqe9106/05/2024enign essential fvijiu3801/07/2024 Overview (06/05/2024): Last Assessment & Plan: (Continue current regimen.) Option to incr to 4 pills/day if/when desired. Cervical paraspinal muscle spasm01/07/2024 Overview (06/05/2024): Last Assessment & Plan: (Continue home PT). Neurogenic pain01/07/2024 Overview (06/05/2024): Last Assessment & Plan: May request to restart GBP at a lower dose - 300 hs - when/if desired. Mhlnhpwbiduggo40/23/2024ongestive heart cvdncex2311/17/2023Hearing loss11/17/2023 11/17/20236748Vunkwaenfwcubl08/03/202401/03/2024Hypertensive heart and chronic kidney disease with heart failure and stage 1 through stage 4 chronic kidney disease, or unspecified chronic kidney amuplau50/01/2024Nausea Sensorineural hearing loss, jxcwlxxow77 Stenosis of left renal oxubmf30Tremor Chronic constipation with suzzeter05olon lxkmfx5006/10/2023 06/10/20239508Qihqduiudzebmq73/27/202307/27/2023Family history of colon cancer Fecal kyqigmf79High serum creatinine Loose oiwoof49History of colon polyps ulmonary hypertension due to left heart qgriwpx8010/05/2022 Pericardial qmeehzhm76/21/2022oronary gttkrbssarppjnal08/02/2022 Assessment & Plan (06/14/2023 3:03 PM EDT): Coronary artery disease is stable Continue GDMT- ASA, labetalol, zetia continue risk factor modifications- heart healthy diet, regular exercise as tolerated and continue all medications. Fmdhlrdgvyk23/02/2022 Assessment & Plan (06/14/2023 3:02 PM EDT): stable Aortic valve sabkrqls64/02/2022 Assessment & Plan (06/14/2023 3:02 PM EDT): Recent echo 05/2023 with noted mod AO stenosis Stage 3 chronic kidney xhvqvqr5307/17/2022 Assessment & Plan (06/14/2023 3:05 PM EDT): BMP script sent Pulmonary edema07/17/2022Edema of pkpafwofjtt69/02/2022hronic atrial xuydgpyznihw82/24/2019Atherosclerosis of renal emcjhf9102/26/2014Type 2 diabetes mellitus with stage 3 chronic kidney disease, without long-term current use of ienacek0708/12/2012cute on chronic diastolic heart fdebbsw9505/03/2012 Overview (07/17/2022): Echocardiogram 01/08/2022: Normal LV systolic [...] PM EDT): Recent admit to [facility] for shortness of breath, acute HFpEF with ARTUR. BNP 3311, BUN 26, CR 1.5-1.9, LFT normal, K+ normal. Troponin level negative. CXR showed vascular congestion Pt was admitted and diuresed as inpt. [facility] III Continue GDMT- remains on jardiance and lasix 60 mg daily for diuresis Monitor daily weights, I&O, fluid restriction 1.5-2L/day, renal function and electrolytes- Script for BMP and CBC provided pt is also seeing PCP today Aortic valve quyyuyzi10/04/2012Type 1 diabetes fbkgcaiw72/04/2012Sleep apnea 03/18/2012Primary pgxxiecjivhq18/04/2035Dalqckk92/04/2012Pulmonary heart disease, zfjkcyhssnr89/04/2012 Encounters DateTypeDepartmentCare DcsqAuadeayaqte94/31/2025Telephone [facility] [address] [place] [address] Caro Calixto MA 09/07/2025Orders Only [facility] [address] [place] [address] Stephanie Carl MA Acute combined systolic and diastolic heart failure (CMS/HCC) (Primary Dx) 09/04/2025Telephone [facility] 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 [facility] [address] ProviderNava MD 07/30/2025 10:40 AM EDTOffice Visit [facility] [address] [place] [address] Ruy Amanda, BALWINDER S/P TAVR (transcatheter aortic valve replacement) (Primary Dx); Chronic diastolic congestive heart failure (CMS/HCC); LBBB (left bundle branch block); Paroxysmal atrial fibrillation (CMS/HCC); Benign hypertensive heart disease with heart failure (CMS/HCC); Mixed hyperlipidemiafrom Last 3 Months Immunizations ImmunizationAdministration DatesNext DueCovid (Pfizer) Bivalent Booster =>12 YRS 10/21/2022Influenza, Ziwxjuzcfei28/06/2023,08/18/2022,09/11/2021,08/27/2020, 08/15/2020,08/15/2019,08/29/2018,08/05/2017Influenza, trivalent, adjuvanted 08/27/2020Pfizer Covid-19 Vaccine, &, Fall 2022-3Pfizer SARS-CoV-2 Sjywlohjxew23/12/2021,01/01/2021,1Pneumococcal Conjugate PCV Pneumococcal Polysaccharide GNM0318Pneumococcal, Unspecified 01/28/2015RSV, Adult, Fvvjsgeb30/07/2553Ujjj28/16/2019Zoster, Recombinant 11/06/2020,10/30/2019Zoster, live09/20/2015 Family History Medical HistoryRelationNameCommentsCoronary artery diseaseFatherRelationName StatusCommentsFatherDeceasedMotherDeceased Social History Tobacco UseTypesPacks/DayYears UsedDateSmoking Tobacco: FormerCigarettes Smokeless Tobacco: Never Tobacco Cessation:Counseling Given: Not Answered Alcohol UseStandard Drinks/WeekCommentsNot Currently0 (1 standard drink = 0.6 oz pure alcohol)[facility] UtilitiesAnswerDate RecordedIn the past 12 months has the electric, gas, oil, or water [employer] threatened to shut off services in your [...] file05/10/2025Sex and Gender InformationValueDate RecordedSex Assigned at ObzkvOazs11/27/2023 8:02 PM EDTLegal RvcXgpp5705/13/2022 10:17 PM EDTGender IuigjvciVtol50/27/2023 8:02 PM EDT Sexual OrientationHeterosexual or Tqzlstxm95/27/2023 8:02 PM EDT Last Filed Vital Signs Vital SignReadingTime TakenCommentsBlood Vkxoyand172/6709 2:52 PM EDT Hvxou2166 2:52 PM WKVTfztypofsik24.7 ??C (98.1 ??F)05/17/2025 7:25 PM EDTRespiratory Qtmi6640 7:25 PM EDTOxygen Lgodyivyid21%07/30/2025 10:52 AM EDTInhaled Oxygen Concentration--Fzbbcu79 kg (176 lb 6.4 oz)08/01/2025 2:52 PM WIRLdtfil436.9 cm (6')08/01/2025 2:52 PM EDTBody Mass Index23.9208/01/2025 2:52 PM EDT Plan of Treatment DateTypeDepartmentCare Team (Latest Contact Info)Zdmpangtrxn16/19/2025 10:00 AM ESTOffice Visit [facility] [address] [place] [phone] Mike Cisneros MD [address] [place] [phone] 01/30/2026 3:00 PM EDTF[facility] [address] [place] [address] Ruthie Linda MD [address] [facility] [place] [address] Health MaintenanceDue DateLast DoneCommentsMedicare Annual Wellness (AWV) 1939Diabetes: Retinopathy Gqjxithpq90/25/1949Influenza Vaccine (#1) /11/2023, 08/20/2023, 08/18/2022, Additional history existsDiabetes: Hemoglobin A1C08/11//OVID-19 Vaccine ( season) /, 08/16/2023, 10/21/2022, Additional history exists Depression Ufwoywtzf80/19/314472/Fall Risk Jqkyugvrp71/17// Adult Ihsyjmi53Pneumococcal Vaccine: 50+ YearsCompleted 08/16/2017, 01/28/2015, 01/28/2015Zoster RtadyavfMjijnrymp24/22/2025, 11/06/2020, 10/30/2019, Additional history existsHIB VaccinesAged OutNo [...] DateModel / Serial / LotKit,Heart Valve,Sapien3,26mm - [id number] - [id number] Implanted:Qty: 1 on 05/15/2025 by [facility]os [facility]Prosthetic ValveN/A: HeartEDWARDS HXXXLYCFRSHV47/26/2027 [id number] / [id number] / Procedures Procedure NamePriorityDate/TimeAssociated DiagnosisCommentsHEMOGLOBIN O5BJdl-Uo 05/11/2025 4:27 AM EDT from Last 3 Months or Most Recently Relevant to Health Maintenance Results * (ABNORMAL) Hemoglobin A1c (05/11/2025 4:27 AM EDT)ComponentValueRef RangeTest MethodAnalysis TimePerformed AtPathologist SignatureHemoglobin A1C9.3(H)4.0 - 6.0 %05/11/2025 1:51 PM [facility] [place]Estimated Average Glucose 220mg/dL05/11/2025 1:51 PM [facility] ([facility] [place])Specimen (Source) Anatomical Location / LateralityCollection Method / VolumeCollection Time Received TimeBloodVenous blood specimen / UnknownVenipuncture / Unknown 05/11/2025 4:27 AM EDT05/11/2025 4:37 AM EDT Narrative Authorizing ProviderResult TypeResult StatusJulio Cesar Medina MDLAB BLOOD ORDERABLES Final ResultPerforming OrganizationAddressCity/State/ZIP CodePhone Number [facility] [place] [address] [place] [address] from Last 3 Months or Most Recently Relevant to Health Maintenance Insurance Advance Directives * Full Code (Latest Code Status on File) Date ActivatedDate InactivatedComments05/10/2025 9:05 AM05/17/2025 10:26 PM * DNR CC-A Date ActivatedDate InactivatedComments05/10/2025 4:16 AM05/10/2025 9:05 AMQuestion AnswerCommentsSelect If Any Apply:* No Intubation Care Teams Team MemberRelationshipSpecialtyStart DateEnd Date Pj Sung MD [address] [place] [phone] PCP - GeneralFamily Medicine05/10/25 Pj Sung MD [address] [place] [phone] 05/10/25
[2025-09-26 11:46] LABS: Glucose Urine UA >=1000 mg/dL (NEGATIVE)
[2025-09-26 12:07] LABS: Cast Seen? NONE SEEN #/LPF (NONE SEEN); Crystals Seen? None Seen #/HPF (None Seen)
== END 2025-09-26 09:33 | disposition home or self-care (01) ==
LOC: CT 09:32
PROVIDERS: PCP Family Medicine; Visit Provider Family Medicine
DX: R41.82 Altered mental status, unspecified (principal); N39.0 Urinary tract infection, site not specified
CPT/HCPCS: 70450; 81001; 87086

== ENCOUNTER 2025-10-29 11:20 | Outpatient (OUT) | payer MEDICARE, SELFPAY ==
[2025-10-29 11:50] LABS: Anion Gap 13.8; Blood Urea Nitrogen 27.0 mg/dL (7.0-18.0); Calcium 9.0 mg/dL (8.5-10.1); Carbon Dioxide 28.3 mmol/L (21.0-32.0); Chloride 101 mmol/L (98-107); Estimated GFR (African America 43 (>=60 mL/min/1.73m^2); Estimated GFR (Non-African Ame 35 (>=60 mL/min/1.73m^2); Glucose 189 mg/dL (74-106); Potassium 4.1 mmol/L (3.5-5.1); Sodium 139 mmol/L (136-145)
== END 2025-10-29 11:21 | disposition home or self-care (01) ==
LOC: LAB 11:20
PROVIDERS: PCP Family Medicine
DX: I48.20 Chronic atrial fibrillation, unspecified (principal)
CPT/HCPCS: 36415; 80048